=== PATIENT | male | born 1950 | race Native Hawaiian/Other Pacific Islander ===

== ENCOUNTER → 2018-08-09 10:19 | Inpatient (IN) | payer OTHER, MEDICAID ==
[2015-06-13 21:08] LABS: BASO # 0.1 K/uL (0.0-0.2); BASO % 0.5 % (0.0-2.0); EOS # 0.2 K/uL (0.0-0.7); EOS % 1.8 % (0.0-4.0); HEMOGLOBIN 11.6 g/dL (12.0-18.0); LYMPH # 5.5 K/uL (1.0-4.3); LYMPH % 51.1 % (20.0-40.0); MEAN CELL VOLUME 96.2 fL (80.0-94.0); MEAN CORPUSCULAR HEMOGLOBIN 30.1 pg (27.0-31.0); MEAN CORPUSCULAR HGB CONC 31.3 g/dL (33.0-37.0); MEAN PLATELET VOLUME 8.1 fL (7.2-11.7); MONO # 0.4 K/uL (0.0-0.8); MONO % 3.7 % (0.0-10.0); NEUT # 4.6 K/uL (1.8-7.0); NEUT % 42.9 % (50.0-75.0); NRBC % 0.1 % (0.0-0.0); RBC 3.86 Mil/uL (4.40-5.90); RED CELL DISTRIBUTION WIDTH 14.1 % (11.5-14.5); WHITE BLOOD COUNT 10.8 K/uL (4.8-10.8)
[2015-06-13 21:17] LABS: ALBUMIN 3.4 g/dL (3.5-5.0)
[2015-06-13 21:20] LABS: ALB/GLOB RATIO 1.2 (1.0-2.1); AST/SGOT 148 U/L (17-59); BLOOD UREA NITROGEN 14 mg/dL (9-20); GFR NON-AFRICAN AMERICAN 60
[2015-06-13 21:21] LABS: ALT/SGPT 149 U/L (21-72); CALCIUM 7.8 mg/dL (8.4-10.2); HDL CHOLESTEROL 36 mg/dL (30-70)
--- NOTE | 2015-06-13 21:21 | C.PDOC ---
History Of Present Illness 72 year old male presents to ED via EMS after being found unconscious in a driveway. Patient was shocked x3 and given Epi x2 and Amiodarone 150mg en route. Unable to obtain any hx due to patient's condition. Chief Complaint (Nursing): Cardiac Arrest History Per: EMS Reason For Code Blue: Full Arrest Circumstances: Brought To ED By EMS Arrest Witnessed By: No One CPR Initiated Prior To MD Arrival?: Yes Down-Time Before ACLS: Unknown Treatment Initiated Prior To MD Arrival: Yes: CPR, Intubation, ACLS Medication Initiation, IV Access Medications Given Prior To MD Arrival: Yes: Epinephrine (x2), Other (Amiodarone) - Initial Findings Mentation: Unresponsive Respirations: Normal Pulse: Strong Rhythm: Tachycardia Past Medical History Vital Signs: Last Vital Signs Temp 97.2 F L 06/13/15 20:56 Pulse 70 06/14/15 00:00 Resp 22 06/14/15 00:00 BP 128/73 06/14/15 00:00 Pulse Ox 100 06/14/15 00:00 Family History: States: Unknown Family Hx Review Of Systems Review Of Systems: ROS cannot be obtained secondary to pt's inabilty to answer questions. Physical Exam - Physical Exam Appears: Non-toxic Skin: Warm, Dry Head: Laceration (Stellate Wound to Occiput with Mild Active Bleed) Cardiovascular: Rhythm Regular (Tachycardic), No Edema, No Murmur Respiratory: Normal Breath Sounds, No Accessory Muscle Use, No Rhonchi, No Wheezing ED Course And Treatment - Laboratory Results Result Diagrams: 06/13/15 20:54 06/13/15 21:05 O2 Sat by Pulse Oximetry: 99 (on RA) Pulse Ox Interpretation: Normal Progress Note: Bloodwork, Labs, EKG, CxR, and Head CT ordered. - Physician Consult Information Physician Contacted: Ashu Hamlin Outcome Of Conversation: Code Heart Doctor on-call contacted with EKG sent. Laceration - Laceration Repair Occiput Wound Length (In cm): 4 Description Of Wound: Stellate Wound Cleansed With: Sterile Saline Wound Examination: Irrigated With Saline Wound Closure: Martin (x12) Suture Technique And Material Used: Interrupted Wound Complexity: Simple Disposition Doctor Will See Patient In The: Hospital Counseled Patient/Family Regarding: Studies Performed, Diagnosis - Disposition Disposition: HOSPITALIZED Disposition Time: 22:00 Condition: CRITICAL - POA Present On Arrival: None - Clinical Impression Clinical Impression: Cardiac arrest, STEMI (ST elevation myocardial infarction), Laceration of head
[2015-06-13 21:25] LABS: INR 1.1; PROTHROMBIN TIME 11.7 SECONDS (9.7-12.2)
[2015-06-13 21:30] LABS: B-TYPE NATRIURETIC PEPTIDE 938 pg/mL (0-900); CK-MB 0.93 ng/mL (0.0-3.38)
--- NOTE | 2015-06-13 21:30 | C.PDOC ---
Chief Complaint (Nursing): Cardiac Arrest Past Medical History Vital Signs: Last Vital Signs Temp 97.6 F 06/13/15 20:54 Pulse 209 H 06/13/15 20:54 Resp 18 06/13/15 20:54 BP 131/81 06/13/15 20:54 Pulse Ox 99 06/13/15 20:54 - Social History Hx Tobacco Use: No Hx Alcohol Use: No Hx Substance Use: No - Immunization History Hx Tetanus Toxoid Vaccination: No Hx Influenza Vaccination: No Hx Pneumococcal Vaccination: No ED Course And Treatment O2 Sat by Pulse Oximetry: 99
[2015-06-13 21:35] LABS: LDL CHOLESTEROL 128 mg/dL (0-129)
--- NOTE | 2015-06-13 22:37 | CP.PCM.HP ---
<Karis Antonio I - Last Filed: 06/14/15 06:35> History of Present Illness - History of Present Illness History of Present Illness: CC: Code Heart Patient is a 64 yo M with unknown pmhx who was found unresponsive in driveway by EMS after fall that was witnessed by family. In the field, CPR was given, patient was in asystole and was shocked 3 times, given 1 dose of Epinephrine and started on an Amiodarone drip. In the ED, the patient was found to be in V Fib and was shocked once. He then converted to sinus tachy and given 5000 U of heparin and Versed. He was intubated and an NGT was placed. Afterwards, he was given 600 mg of Plavis and 325 mg of ASA. He was found to have a large gash on the R side of his head so he was taken for a Head CT, which showed on acute intracranial hemorrhage and then to the fish farm laborer. From Patient's History obtained by System Analyst from family: PMHx: unknown type of "heart trouble" that was diagnosed in [place] 15 years ago. no rx or therapy given at that time. He has not seen a physician in 15 years PSHx: Denied Soc: denied EtOH and tobacco Allergy: NKDA meds: none Present on Admission - Present on Admission Any Indicators Present on Admission: No Review of Systems - Review of Systems Systems not reviewed;Unavailable: Intubated Past Patient History - Past Social History Smoking Status: Never Smoked - PSYCHIATRIC Hx Substance Use: No Meds Home Medications: Home Medication List Medication Instructions Recorded Confirmed Type No Known Home Med [No Known Home 06/13/15 06/13/15 History Med] Allergies/Adverse Reactions: Allergies Allergy/AdvReac Type Severity Reaction Status Date / Time No Known Allergies Allergy Unverified 06/13/15 20:57 Physical Exam - Constitutional Additional comments: Unresponsive to verbal or noxious stimuli - Head Exam Additional comments: 3 cm stapled contusion on the R side of the head, old blood seen - Respiratory Exam Respiratory Exam: Clear to PA & Lateral, NORMAL BREATHING PATTERN - Cardiovascular Exam Cardiovascular Exam: REGULAR RHYTHM, RRR, +S1, +S2 - GI/Abdominal Exam GI & Abdominal Exam: Normal Bowel Sounds, Soft - Extremities Exam Extremities exam: Positive for: normal inspection - Back Exam Back exam: NORMAL INSPECTION - Skin Skin Exam: Dry, Normal Color, Warm Results - Vital Signs Recent Vital Signs: Last Vital Signs Temp 97.2 F L 06/13/15 20:56 Pulse 122 H 06/13/15 21:04 Resp 18 06/13/15 21:04 BP 104/80 06/13/15 21:04 Pulse Ox 99 06/13/15 21:47 - Labs Result Diagrams: 06/13/15 20:54 06/13/15 21:05 Assessment/Plan (1) Cardiac arrest Current Visit: Yes Status: Acute Comment: Cardiac Catheterization showed occluded RCA and LAD Admit to ICU Continue Amiodarone drip Start ASA 325 mg po daily, Plavix 75 mg po daily, Crestor 2.5 mg po daily and Enalapril 2.5 mg po daily Cardiology Consult (Dr. Hamlin) Monitor (2) Anoxic encephalopathy Current Visit: Yes Status: Acute Comment: Most likely due to cardiac arrest Patient intubated Care as per Intensive Care Unit (3) Prophylactic measure Current Visit: Yes Status: Acute Comment: Pepcid 20 mg IVP q12 SCD's Plavix <Jalen Dye - Last Filed: 06/14/15 06:44> Results - Vital Signs Recent Vital Signs: Last Vital Signs Temp 98 F 06/14/15 00:13 Pulse 90 06/14/15 02:13 Resp 24 06/14/15 02:13 BP 114/76 06/14/15 02:13 Pulse Ox 96 06/14/15 02:13 - Labs Result Diagrams: 06/13/15 20:54 06/13/15 21:05 Labs: Laboratory Results - last 24 hr 06/14/15 05:20 pCO2 72.0 H* pO2 59.0 L HCO3 24.0 ABG pH 7.130 L* ABG Total CO2 26.2 ABG O2 Saturation 80.0 ABG Base Excess -6.3 A-a O2 Difference 564.0 Mechanical Rate 16.000 FiO2 100.000 Tidal Volume 450.000 Assessment/Plan - Date & Time Date: 06/14/15 (Agree with resident H&P and A/P. Code Heart called on patient. Taken to cath. RCA and LAD found to be occluded. May have anoxic brain injury. Admit to ICU for close monitoring.) Time: 06:43
[2015-06-13] MEDS: Eptifibatide 0.75 mg/ml 100 ML IV SCH (23:30)
--- NOTE | 2015-06-14 00:11 | CP.PCM.CON ---
History of Present Illness - History of Present Illness History of Present Illness: CTSP for admission to ICU after cardiac cath Indication: ventilator dependence, unresponsive Per ER Documentation: Patient is a 64 yo M with unknown pmhx who was found unresponsive in driveway his after a witnessed fall. She ran to him and cradled him in her arms while he was unresponsive. Unknown if he had a pulse or respirations at the time. After about 10 minutes, the pts then screamed out to her daughter in her house and it is the daughter that called EMS. EMS arrived after about 15 minutes (as relayed to me by the daughter). During that time there was still no response from the who was still cradled in the arms of his . In the field, CPR was administered by EMS. Per reports, the patient was in asystole and was shocked 3 times, given 1 dose of Epinephrine and started on an Amiodarone drip. In the ED the patient was still in V Fib and was shocked once. He then converted to sinus tachycardia and was given 5000 U of heparin as well as Versed. He was intubated and an NGT was placed. Afterwards, he was given 600 mg of Plavix and 325 mg of ASA. He was found to have a large gash on the R side of his head which was sutured and subsequently he was taken for a Head CT shich did not reveal any bleeding within the cranium. He was then taken to the wetlands conservation laborer by Dr. Hamlin who opened an occluded RCA and mid LAD. Pt transported to the ICU on a ventilator. NO improvement in mental status. Family at bedside and provided above information. speaks Arabic only and hx provided in toto by the daughter PMHx: unknown type of "heart trouble" that was diagnosed in [place] 15 years ago. no rx or therapy given at that time. He has not seen a physician in 15 years PSHx: Denied Soc: denied EtOH and tobacco Allergy: NKDA meds: none Discussed case/care/prognosis and high likelihood of anoxic injury and npo return of a functional neurologic state given a prolonged "down-time" of greater than 20 minutes before return of an organized cardiac rhythm. DUring course of care, pt developed seizures. Family aware. phosphenytoin administered Review of Systems - Review of Systems Systems not reviewed;Unavailable: Intubated (and unresponsive) Past Patient History - Tetanus Immunizations Tetanus Immunization: Unknown - Past Medical History & Family History Past Medical History?: Yes - Past Social History Smoking Status: Never Smoked Alcohol: None Drugs: Denies Home Situation {Lives}: With Family - CARDIAC Hx Cardiac Disorders: (unknown condition diagnosed in [place] 15 years ago) - PSYCHIATRIC Hx Substance Use: No Meds Home Medications: Home Medication List Medication Instructions Recorded Confirmed Type No Known Home Med [No Known Home 06/13/15 06/13/15 History Med] Allergies/Adverse Reactions: Allergies Allergy/AdvReac Type Severity Reaction Status Date / Time No Known Allergies Allergy Unverified 06/13/15 20:57 - Medications Medications: Current Medications Aspirin (Aspirin) 325 mg PO DAILY [facility] Clopidogrel Bisulfate (Plavix) 75 mg PO DAILY [facility] Enalapril Maleate (Vasotec) 2.5 mg PO DAILY [facility] Amiodarone HCl 900 mg/ (Dextrose) 518 mls @ 33 mls/hr IV Q15H JOO Stop: 06/14/15 03:30 Amiodarone HCl 150 mg/ (Dextrose) 103 mls @ 618 mls/hr IVPB ONCE JOO PRN Reason: Protocol Amiodarone HCl 900 mg/ (Dextrose) 518 mls @ 17 mls/hr IV Q29H JOO Stop: 06/15/15 08:29 Potassium Chloride (Potassium Chloride 20 Meq/100 Ml) 100 mls @ 50 mls/hr IVPB STAT STA Stop: 06/14/15 00:24 Last Admin: 06/13/15 22:25 Dose: 50 mls/hr Eptifibatide (Integrilin) 100 mls @ 9.435 mls/hr IV .[id number] JOO PRN Reason: 2 MCG/KG/MIN Stop: 06/14/15 11:30 Rosuvastatin Calcium (Crestor) 2.5 mg PO HS [facility] Physical Exam - Constitutional Appears: No Acute Distress Additional comments: unresponsive to verbal, painful and tactile stimuli - Head Exam Additional comments: + laceration on posterior scalp, sutured in ER - Eye Exam Pupil Exam: Fixed Additional comments: dilated - ENT Exam ENT Exam: Mucous Membranes Moist - Neck Exam Additional comments: trachea midline - Respiratory Exam Respiratory Exam: Clear to PA & Lateral - Cardiovascular Exam Cardiovascular Exam: REGULAR RHYTHM - GI/Abdominal Exam GI & Abdominal Exam: Hypoactive Bowel Sounds, Soft. absent: Distended, Firm, Guarding, Rebound, Rigid, Tenderness - Rectal Exam Rectal Exam: Deferred - Extremities Exam Extremities exam: Positive for: normal inspection - Neurological Exam Additional comments: unresponsive to verbal, painful and tactile stimuli - Expanded Neurological Exam Expanded Cranial nerves: Gag Reflex: Abnormal Left, Abnormal Right Coma Scale Eye Opening: None - Skin Skin Exam: Warm Results - Vital Signs Recent Vital Signs: Last Vital Signs Temp 97.2 F L 06/13/15 20:56 Pulse 122 H 06/13/15 21:04 Resp 18 06/13/15 21:04 BP 104/80 06/13/15 21:04 Pulse Ox 99 06/13/15 21:47 - Labs Result Diagrams: 06/13/15 20:54 06/13/15 21:05 Assessment/Plan (1) Cardiac arrest Current Visit: Yes Status: Acute (2) STEMI (ST elevation myocardial infarction) Current Visit: Yes Status: Acute (3) Anoxic encephalopathy Current Visit: Yes Status: Acute (4) CAD (coronary artery disease) Current Visit: Yes Status: Acute (5) Seizures Current Visit: Yes Status: Acute Comment: likely secondary to anoxic injury phosphenytoin administered (6) Prophylactic measure Current Visit: Yes Status: Acute - Assessment and Plan (Free Text) Plan: prognosis for neurological recovery is dismal given length of time pt was unresponsive and likely in v. fib arrest as hx obtained from EMS and the family. Duration from fall to organized rhythm appears to be greater than 25 minutes. maintain icu care maintain vent support neuro consult labs ordered see all orders
[2015-06-14] MEDS: Rosuvastatin Calcium 2.5 mg Tab PO SCH ×2 (01:28→23:05)
[2015-06-14 05:43] LABS: ARTERIAL BLOOD GAS TCO2 26.2 mmol/L
[2015-06-14 06:45] LABS: BASO % 0.1 % (0.0-2.0); HEMOGLOBIN 11.7 g/dL (12.0-18.0); LYMPH # 0.3 K/uL (1.0-4.3); LYMPH % 1.7 % (20.0-40.0); MEAN CELL VOLUME 94.9 fL (80.0-94.0); MEAN CORPUSCULAR HEMOGLOBIN 30.1 pg (27.0-31.0); MEAN CORPUSCULAR HGB CONC 31.7 g/dL (33.0-37.0); MEAN PLATELET VOLUME 8.6 fL (7.2-11.7); MONO # 1.2 K/uL (0.0-0.8); MONO % 6.9 % (0.0-10.0); NEUT # 15.5 K/uL (1.8-7.0); NEUT % 91.3 % (50.0-75.0); PLATELET COUNT 272 K/uL (130-400); RBC 3.88 Mil/uL (4.40-5.90); RED CELL DISTRIBUTION WIDTH 14.2 % (11.5-14.5)
[2015-06-14 07:00] LABS: ALBUMIN 3.6 g/dL (3.5-5.0)
[2015-06-14 07:03] LABS: ALB/GLOB RATIO 1.2 (1.0-2.1)
[2015-06-14 07:04] LABS: CALCIUM 7.7 mg/dL (8.4-10.2)
--- NOTE | 2015-06-14 07:16 | CT ---
PROCEDURE: CT HEAD WITHOUT CONTRAST. HISTORY: Code heart. Altered mental status. COMPARISON: None available. TECHNIQUE: Axial computed tomography images were obtained through the head/brain without intravenous contrast. FINDINGS: HEMORRHAGE: No intracranial hemorrhage. BRAIN: No mass effect or edema. No atrophy or chronic microvascular ischemic changes. Bilateral basal ganglia calcifications. VENTRICLES: Prominent consistent with mild volume loss. CALVARIUM: Unremarkable. PARANASAL SINUSES: Scattered mucosal thickening of the visualized paranasal sinuses. MASTOID AIR CELLS: Unremarkable as visualized. No inflammatory changes. OTHER FINDINGS: Endotracheal tube and nasogastric tube identified. IMPRESSION: No acute intracranial abnormality. If focal neurologic deficit persists, consider followup MRI for further evaluation. These findings were preliminarily reported at 10:09 p.m. on 06/13/[address] Khadar Sneed from [facility].
[2015-06-14] MEDS: Eptifibatide 0.75 mg/ml 100 ML IV SCH ×2 (07:44→10:00)
[2015-06-14] MEDS: Fosphenytoin 100 MG in Dextrose 5% In Water 50 ML IV SCH ×3 (08:04→23:04)
[2015-06-14 08:09] LABS: TROPONIN I 10.7 ng/mL (0.00-0.120)
[2015-06-14 08:26] LABS: ANISOCYTOSIS SLIGHT; BANDS 4 % (0-0); HYPOCHROMIC SLIGHT; LYMPHOCYTE 2 % (20-40); MONOCYTE 5 % (0-10); NEUTROPHIL 89 % (50-75); PLATELET ESTIMATE NORMAL (NORMAL); POIKILOCYTOSIS SLIGHT; TOTAL CELLS COUNTED 100
[2015-06-14 08:27] LABS: LARGE PLATELETS PRESENT; TARGET CELLS SLIGHT
--- NOTE | 2015-06-14 08:30 | CARDCATH ---
The patient is a 64-year-old male who was found collapsing in his driveway, CPR was initiated. The p atient required total five defibrillations. The patient was in ventricular fibrillation. The patien t was given amiodarone bolus and was started on infusion in Emergency Room. The patient was found to have sustained a posterior scalp laceration and underwent stapling in the cardiac laborer tin can just befo re the procedure. Before the procedure a CT scan of the head was done to rule out intracerebral hemo rrhage or contusion prior to the procedure and the preliminary report was negative. The patient was brought to the cardiac laborer tin can unresponsive, intubated, and in sinus rhythm. PROCEDURE: A 6-[place] sheath was placed in the right femoral artery. A left coronary angiography wa s performed with 6-[place] JL4 diagnostic catheter, which revealed a 50% ostial left main left, main b ifurcated into a medium sized LAD, and medium sized circumflex artery. The rest of the left coronary circulation was angiographically unremarkable. Retrograde filling of the distal RCA was noted from the left coronary circulation. Selective injection of right coronary artery revealed total occlusion of the ____ proximal to mid segment. Decision was made to proceed with intervention. The patient h ad received 5000 units of intravenous heparin and 600 mg of Plavix via nasogastric tube as well as 32 5 mg of aspirin in the Emergency Room. An additional 3000 units of heparin were given and the lesion was closed with 0.014 PT2 wire and the lesion was initially dilated with 1.5 and then 2.0 mm balloon s. After recanalization of the right coronary artery, a 3.0 x 28 mm bare metal stent was deployed at the lesion, was expanded at 14 atmospheric pressure. Subsequent right coronary angiography revealed a distal flap just distal to the stent with a filling defect that was stented with 3.0 x 12 mm bare metal stent; however, there was still persistence of the thrombus that was floating in the distal rig ht coronary artery. A fetch catheter was introduced and thrombectomy was performed successfully. Fu rther stenting to the proximal RCA was performed with a 3.0 x 15 mm bare metal stent. Final right co ronary angiography reveals resolution of the entire lesions with no residual thrombus or filling defe ct. The patient was also started on Integrilin bolus and infusion during the procedure. The patient required a total of 1 mg of intravenous heparin prior to the procedure for bradycardia. After compl etion of the procedure, ventriculogram was performed and revealed severely dilated, severely hypokine tic left ventricle. The patient will be transferred to the ICU on Integrilin therapy. Aspirin and P lavix will be resumed. A bedside echo will be obtained and in the meantime a Code Freeze will be dis cussed with the bakery products checker if the patient is a candidate in view of the recent scalp injury. Electr ophysiology evaluation will be also requested. Eventually, the patient may require coronary artery b ypass surgery for the left main disease; however, the patient is not a suitable candidate at this mitchel e. Ashu Hamlin MD cc: [id number] TT: 06/14/2015 04:48:16 an
--- NOTE | 2015-06-14 09:26 | RAD ---
PROCEDURE: CHEST RADIOGRAPH, 1 VIEW HISTORY: code heart [facility] 6 COMPARISON: None available. FINDINGS: LUNGS: Endotracheal tube extending into the mid thoracic trachea. NG tube extending into the stomach. Hyperinflation suggestive for emphysematous changes. Left apical granuloma. PLEURA: No pneumothorax or pleural fluid seen. CARDIOVASCULAR: Normal. OSSEOUS STRUCTURES: No significant abnormalities. VISUALIZED UPPER ABDOMEN: Normal. OTHER FINDINGS: None. IMPRESSION: No active disease.
--- NOTE | 2015-06-14 09:51 | RAD ---
PROCEDURE: CHEST RADIOGRAPH, 1 VIEW HISTORY: ett check COMPARISON: 06/13/2015 FINDINGS: LUNGS: Worsening airspace consolidation throughout the right lung. Lines and tubes stable position. Thin tubing projects over upper hemithoraces, possibly external. PLEURA: No pneumothorax or pleural fluid seen. CARDIOVASCULAR: Normal. OSSEOUS STRUCTURES: No significant abnormalities. VISUALIZED UPPER ABDOMEN: Normal. OTHER FINDINGS: None. IMPRESSION: Worsening airspace consolidation in the right lung.
--- NOTE | 2015-06-14 12:40 | PN ---
DATE: 06/14/2015 The patient has been deeply comatose. No reported ventricular tachycardia. The patient was hyperten sive briefly, responded to IV fluid therapy. PHYSICAL EXAMINATION: VITAL SIGNS: Blood pressure 98/66, heart rate 82, temperature 101 degrees Fahrenheit. HEENT: Dressings applied to the posterior scalp wound. CHEST: Clear. HEART: S1, S2 regular. EXTREMITIES: No edema and no groin hematoma. LABORATORIES: [facility]: Sodium 148, potassium 4.1, chloride 108, CO2 24, glucose 137, BUN 17, creatini ne 1.6. Troponin is 10.[address] head [address] scan report: No acute intracranial abnormalitie s. ASSESSMENT: Status post cardiac arrest and acute anterior wall myocardial infarction, status post pe rcutaneous coronary intervention to totally occluded proximal to mid right coronary artery with known 50% stenosis of the ostium of the left main. RECOMMENDATIONS: Continue current IV amiodarone infusion. Continue aspirin, Pepcid, Plavix and enal february. I will follow the bedside echocardiograph study. Ashu Hamlin MD cc: [id number] TT: 06/14/2015 12:40:28 en
--- NOTE | 2015-06-14 12:53 | CT ---
PROCEDURE: CT HEAD WITHOUT CONTRAST. HISTORY: unresponsiveness COMPARISON: 06/13/2015 TECHNIQUE: Axial computed tomography images were obtained through the head/brain without intravenous contrast. Radiation dose: Total exam DLP = 1204.23 mGy-cm. FINDINGS: HEMORRHAGE: No intracranial hemorrhage. BRAIN: No mass effect or edema. Minimal age appropriate atrophy. No evidence of acute infarct. Carver/white matter differentiation is preserved. VENTRICLES: Unremarkable. No hydrocephalus. CALVARIUM: Unremarkable. PARANASAL SINUSES: Chronic ethmoid, sphenoid and bilateral maxillary sinusitis. Frontal sinuses are hypoplastic. MASTOID AIR CELLS: Unremarkable as visualized. No inflammatory changes. OTHER FINDINGS: None. IMPRESSION: No evidence of intracranial mass, hemorrhage or acute infarct. Chronic pansinusitis.
[2015-06-14 13:31] LABS: CK-MB 20.6 ng/mL (0.0-3.38)
[2015-06-14] MEDS: Sodium Chloride 0.9% 1,000 ML IV SCH ×2 (15:18→23:06)
[2015-06-14] MEDS: Piperacill/Tazo 3.375gm in Dex 50 ML IVPB SCH (16:01)
--- NOTE | 2015-06-14 16:36 | CP.PCM.CON ---
History of Present Illness - History of Present Illness History of Present Illness: Palliative Care Consult Consulted by Yesenia Mayer DO Reason: planing goals of care I was asked to see this unfortunate, 64 yo man, for problems related to his sudden cardiac arrest and anoxic brain injury. Thank you for asking me to see this patient. I have discussed the case with nursing staff, reviewed medical records and most recent diagnostic studies, interviewed the family and examined the patient. Patient is unresponsive, GCS of 3, flaccid upper and lower extremities with bilateral foot droop. PPS 10%. Code status , FULL CODE.Respirations are supported by the ventilator via ED tube. Hydration is maintained trough the IVF. Patient was admitted to the ER on 06/13/2015 ,after sustaining cardiac arrest at home and found by his . Due to the fall, patient sustained Right acute intracranial hemorrhage. Ct head showed no acute infarct. According to nursing staff, last night , patient had series of short lasting seizure activities what for Celebyx IV was initiated. At cardiac garage laborer., Percutaneous coronary intervention was performed to totally occluded Right Coronary artery as stated in Doctor Boubacar's note. Cardiac perfusion is supported by Amiodorone IV, ASA, PLavix,Pepcid,Crestor, Enalapril. Patient has none recorded PMH and as per his daughter's statement he was always healthy and had not seen a doctor for 15 years. Patient is and has one daughter. They live in [place]. The daughter is only one Niuean speaking in the family. Review of Systems - Review of Systems Systems not reviewed;Unavailable: Intubated - EENT Eyes: Other Ears: UNREMARKABLE Nose/Mouth/Throat: UNREMARKABLE Additional comments: pupils dilated, non reactive to light - Cardiovascular Additional comments: S/P cardiac arrest - Respiratory Additional comments: Anoxic brain injury - Neurological Neurological: Other Additional comments: GCS 3 Past Patient History - Tetanus Immunizations Tetanus Immunization: Unknown - Past Medical History & Family History Past Medical History?: Yes - Past Social History Smoking Status: Never Smoked - CARDIAC Hx Cardiac Disorders: (unknown condition diagnosed in [place] 15 years ago) - MUSCULOSKELETAL/RHEUMATOLOGICAL Hx Falls: Yes - PSYCHIATRIC Hx Substance Use: No - ANESTHESIA Hx Anesthesia: No Hx Anesthesia Reactions: No Hx Malignant Hyperthermia: No Has any member of the family had a problem w/ anesthesia?: No Meds Home Medications: Home Medication List Medication Instructions Recorded Confirmed Type No Known Home Med [No Known Home 06/13/15 06/13/15 History Med] Allergies/Adverse Reactions: Allergies Allergy/AdvReac Type Severity Reaction Status Date / Time No Known Allergies Allergy Unverified 06/13/15 20:57 - Medications Medications: Current Medications Aspirin (Aspirin) 325 mg PO DAILY [facility] Last Admin: 06/14/15 10:53 Dose: 325 mg Clopidogrel Bisulfate (Plavix) 75 mg PO DAILY [facility] Last Admin: 06/14/15 10:52 Dose: 75 mg Enalapril Maleate (Vasotec) 2.5 mg PO DAILY [facility] Last Admin: 06/14/15 09:00 Dose: Not Given Famotidine (Pepcid) 20 mg IVP Q12 [facility] Last Admin: 06/14/15 10:52 Dose: 20 mg Amiodarone HCl 150 mg/ (Dextrose) 103 mls @ 618 mls/hr IVPB ONCE [facility] PRN Reason: Protocol Amiodarone HCl 900 mg/ (Dextrose) 518 mls @ 17 mls/hr IV Q29H [facility] Stop: 06/15/15 08:29 Last Admin: 06/14/15 06:00 Dose: 17 mls/hr Fosphenytoin Sodium 100 mg/ (Dextrose) 52 mls @ 100 mls/hr IV Q8H [facility] Last Admin: 06/14/15 14:13 Dose: 100 mls/hr Piperacillin Sod/Tazobactam Sod (Zosyn 3.375 Gm Iv Premix) 50 mls @ 100 mls/hr IVPB Q8H [facility] Sodium Chloride (Sodium Chloride 0.9%) 1,000 mls @ 125 mls/hr IV .Q8H [facility] Last Admin: 06/14/15 15:18 Dose: 125 mls/hr Vancomycin HCl 750 mg/ Sodium (Chloride) 250 mls @ 166.6 mls/hr IVPB Q24H [facility] Rosuvastatin Calcium (Crestor) 2.5 mg PO HS [facility] Last Admin: 06/14/15 01:28 Dose: 2.5 mg Physical Exam - Constitutional Appears: Other Additional comments: Comatous - Head Exam Additional comments: S/P fall, right head injury - Eye Exam Pupil Exam: Fixed - ENT Exam Additional comments: Intubated - Neck Exam Neck exam: Negative for: Full Rom, Lymphadenopathy, Meningismus, Normal Inspection, Tenderness, Thyromegaly Additional comments: Flaccid, no active ROM - Respiratory Exam Additional comments: Ventilator dependent - Cardiovascular Exam Cardiovascular Exam: REGULAR RHYTHM Additional comments: S/P cardiac arrest - GI/Abdominal Exam GI & Abdominal Exam: Unremarkable - Rectal Exam Rectal Exam: Deferred - Exam Exam: absent: Circumcision, NORMAL INSPECTION, Scrotal Swelling, Testicular Tenderness, Uretheral Discharge, Testicular Vertical Lie, Bladder Distension External exam: NORMAL EXTERNAL EXAM. absent: Ecchymosis, Erythema, Lacerations , Lesions, Swelling Speculum exam: absent: Cervical Discharge, Erythema, Foreign Body, Laceration, NORMAL SPECULUM EXAM, Tissue, Vaginal Bleeding, Vaginal Discharge Bimanual exam: absent: Adenexal Mass, Adnexal, Cervical Motion Tendernes, NORMAL BIMANUAL EXAM, Uterine Enlargement, Uterine Tenderness - Extremities Exam Extremities exam: Positive for: pedal pulses present Additional comments: Foot Droop - Back Exam Back exam: absent: CVA tenderness (L), CVA tenderness (R), FULL ROM, muscle spasm, NORMAL INSPECTION, paraspinal tenderness, rash noted, tenderness, vertebral tenderness - Neurological Exam Neurological exam: Motor Sensory Deficit Additional comments: Brain - Skin Skin Exam: Abrasion Results - Vital Signs Recent Vital Signs: Last Vital Signs Temp 98.5 F 06/14/15 12:00 Pulse 75 06/14/15 14:00 Resp 26 H 06/14/15 14:00 BP 107/70 06/14/15 14:00 Pulse Ox 100 06/14/15 14:00 - Labs Result Diagrams: 06/14/15 06:25 06/14/15 06:25 Labs: Laboratory Results - last 24 hr 06/14/15 06/14/15 06/14/15 05:20 06:25 12:38 WBC 17.0 H D RBC 3.88 L Hgb 11.7 L Hct 36.8 MCV 94.9 H MCH 30.1 MCHC 31.7 L RDW 14.2 Plt Count 272 MPV 8.6 Neut % (Auto) 91.3 H Lymph % (Auto) 1.7 L [place] % (Auto) 6.9 Eos % (Auto) 0.0 Baso % (Auto) 0.1 Neut # 15.5 H Lymph # 0.3 L [place] # 1.2 H Eos # 0.0 Baso # 0.0 Neutrophils % (Manual) 89 H Band Neutrophils % 4 H Lymphocytes % (Manual) 2 L Monocytes % (Manual) 5 Platelet Estimate Normal Large Platelets Present Hypochromasia (manual) Slight Poikilocytosis (manual Slight Anisocytosis (manual) Slight Target Cells Slight pCO2 72.0 H* pO2 59.0 L HCO3 24.0 ABG pH 7.130 L* ABG Total CO2 26.2 ABG O2 Saturation 80.0 ABG Base Excess -6.3 A-a O2 Difference 564.0 Mechanical Rate 16.000 FiO2 100.000 Tidal Volume 450.000 Sodium 148 Potassium 4.1 Chloride 108 H Carbon Dioxide 24 Anion Gap 20 BUN 17 Creatinine 1.6 H Est GFR ( Amer) 53 Est GFR (Non-Af Amer) 44 Random Glucose 137 H Lactic Acid 5.8 H* Calcium 7.7 L Phosphorus 6.4 H Magnesium 2.0 Total Bilirubin 0.6 AST 289 H D ALT 265 H D Alkaline Phosphatase 85 Total Creatine Kinase 3027 H CK-MB (Mass) 20.6 H Troponin I 10.7000 H* Troponin I, Quant 9.8200 H* Total Protein 6.7 Albumin 3.6 Globulin 3.1 Albumin/Globulin Ratio 1.2 Assessment/Plan - Assessment and Plan (Free Text) Assessment: Assessment This unfortunate 64 yo man, is vent dependent, due to anoxic brain injury secondary to sudden cardiac arrest. His ( who is only Latvian speaking) and the daughter are at the bed side. They are still in shock; daughter is crying, while the is with flat affect. The daughter recalls that the " heart doctor" told her that prognosis in case of her father was poor and that his heart may stop bitting. She made it clear that her and her mom would want extraordinary measures used to keep him alive. She understands that he may never wake up. If that was the case, she stated, they would bring him home and take care of him. I corrected her knowledge that her father may remain vent dependent, in what case he may need trach placement, which will limit possibility of him going home. I also mentioned that they may have to think of the financial aspect as well, given that they have no insurance. I offered suggestions about quality of life and asked if she knew what her father would want for himself if he could speak. The daughter said that they never had that kind of conversations. Recommendations * Continue Palliative care for family support. * Introduce POLST/DNR * Refer to Pastoral Care for Spiritual support to family during this difficult time * Refer to for possible jaime care application I have discussed this recommendations with the nursing staff, Roentgenology Teacher Hilary and with the daughter. We agreed that this is very tragic and complex situation and that family will need a lot of support and guidance. The refused to go home and I showed her and daughter the waiting room and went over the visiting hours policy. We agreed to meet again tomorrow in presence of Roentgenology Teacher Hilary again and discuss goals of care . Palliative care team will continue to support the family in setting up goals of care care . Thank you for letting me be a part in taking care of this patient.
--- NOTE | 2015-06-14 16:39 | CP.PCM.PN ---
Subjective - Subjective Subjective: Pt intubated and sedated Review of Systems - Review of Systems Systems not reviewed;Unavailable: Intubated Objective - Vital Signs/Intake and Output Vital Signs (last 24 hours): Vital Signs - 24 hr 06/13/15 06/13/15 06/13/15 23:24 23:43 23:58 Temperature 97.7 F Pulse Rate 74 70 73 Pulse Rate [* 74 Pedal & Posterior Tibial] Pulse Rate [ 74 Radial] Respiratory 18 20 18 Rate Blood Pressure 123/58 L 128/73 118/80 O2 Sat by Pulse 100 100 100 Oximetry 06/14/15 06/14/15 06/14/15 00:00 00:13 00:28 Temperature 98 F Pulse Rate 70 71 88 Pulse Rate [* Pedal & Posterior Tibial] Pulse Rate [ Radial] Respiratory 22 22 22 Rate Blood Pressure 128/73 128/73 105/55 L O2 Sat by Pulse 100 100 99 Oximetry 06/14/15 06/14/15 06/14/15 00:43 00:58 01:03 Temperature Pulse Rate 82 90 Pulse Rate [* Pedal & Posterior Tibial] Pulse Rate [ Radial] Respiratory 22 19 Rate Blood Pressure 106/53 L 97/71 L O2 Sat by Pulse 100 100 99 Oximetry 06/14/15 06/14/15 06/14/15 01:13 01:43 02:13 Temperature Pulse Rate 86 81 90 Pulse Rate [* Pedal & Posterior Tibial] Pulse Rate [ Radial] Respiratory 22 20 24 Rate Blood Pressure 102/65 115/60 114/76 O2 Sat by Pulse 98 98 96 Oximetry 06/14/15 06/14/15 06/14/15 03:13 04:13 05:13 Temperature 100.5 F H Pulse Rate 108 H 103 H 101 H Pulse Rate [* Pedal & Posterior Tibial] Pulse Rate [ Radial] Respiratory 16 16 16 Rate Blood Pressure 117/76 95/62 L 105/65 O2 Sat by Pulse 95 99 98 Oximetry 06/14/15 06/14/15 06/14/15 05:15 05:30 06:00 Temperature 101.2 F H Pulse Rate 103 H 112 H 106 H Pulse Rate [* Pedal & Posterior Tibial] Pulse Rate [ Radial] Respiratory 16 16 16 Rate Blood Pressure 79/36 L 85/47 L 121/65 O2 Sat by Pulse 90 L 93 L 100 Oximetry 06/14/15 06/14/1506/14/15 08:00 09:00 10:00 Temperature 101.4 F H 101 F H Pulse Rate 96 H 93 H 87 Pulse Rate [* Pedal & Posterior Tibial] Pulse Rate [ Radial] Respiratory 24 25 H 25 H Rate Blood Pressure 94/62 L 89/64 L 100/65 O2 Sat by Pulse 100 100 100 Oximetry 06/14/15 06/14/15 06/14/15 11:00 12:00 13:00 Temperature 98.5 F Pulse Rate 82 86 72 Pulse Rate [* Pedal & Posterior Tibial] Pulse Rate [ Radial] Respiratory 25 H 25 H 25 H Rate Blood Pressure 98/66 L 100/65 103/74 O2 Sat by Pulse 100 100 100 Oximetry 06/14/15 14:00 Temperature Pulse Rate 75 Pulse Rate [* Pedal & Posterior Tibial] Pulse Rate [ Radial] Respiratory 26 H Rate Blood Pressure 107/70 O2 Sat by Pulse 100 Oximetry Intake and Output (last 12 hours): Intake & Output 06/13/15 06/14/15 06/14/15 18:59 06:59 18:59 Intake Total 290.2 267.8 Output Total 2155 1320 Balance -1864.8 -1052.2 Intake: Intake, IV Amount 290.2 187.8 Right Wrist 75.2 18.8 Left Forearm 50 Left Antecubital 215 119 Tube Feeding 80 Output: Urine 2155 1320 Urethral (Yoo) 2155 1320 Stool 0 Other: Voiding Method Indwelling Catheter - Medications Medications: Current Medications Amiodarone HCl (Cordarone) 200 mg PO DAILY [facility] Aspirin (Aspirin) 325 mg PO DAILY [facility] Last Admin: 06/14/15 10:53 Dose: 325 mg Clopidogrel Bisulfate (Plavix) 75 mg PO DAILY [facility] Last Admin: 06/14/15 10:52 Dose: 75 mg Enalapril Maleate (Vasotec) 2.5 mg PO DAILY [facility] Last Admin: 06/14/15 09:00 Dose: Not Given Famotidine (Pepcid) 20 mg IVP Q12 [facility] Last Admin: 06/14/15 10:52 Dose: 20 mg Amiodarone HCl 150 mg/ (Dextrose) 103 mls @ 618 mls/hr IVPB ONCE [facility] PRN Reason: Protocol Fosphenytoin Sodium 100 mg/ (Dextrose) 52 mls @ 100 mls/hr IV Q8H [facility] Last Admin: 06/14/15 14:13 Dose: 100 mls/hr Piperacillin Sod/Tazobactam Sod (Zosyn 3.375 Gm Iv Premix) 50 mls @ 100 mls/hr IVPB Q8H [facility] Last Admin: 06/14/15 16:01 Dose: 100 mls/hr Sodium Chloride (Sodium Chloride 0.9%) 1,000 mls @ 125 mls/hr IV .Q8H [facility] Last Admin: 06/14/15 15:18 Dose: 125 mls/hr Vancomycin HCl 750 mg/ Sodium (Chloride) 250 mls @ 166.6 mls/hr IVPB Q24H [facility] Last Admin: 06/14/15 16:31 Dose: 166.6 mls/hr Rosuvastatin Calcium (Crestor) 2.5 mg PO HS [facility] Last Admin: 06/14/15 01:28 Dose: 2.5 mg - Labs Labs (last 24 hours): Laboratory Results - last 24 hr 06/14/15 06/14/15 06/14/15 05:20 06:25 12:38 WBC 17.0 H D RBC 3.88 L Hgb 11.7 L Hct 36.8 MCV 94.9 H MCH 30.1 MCHC 31.7 L RDW 14.2 Plt Count 272 MPV 8.6 Neut % (Auto) 91.3 H Lymph % (Auto) 1.7 L [place] % (Auto) 6.9 Eos % (Auto) 0.0 Baso % (Auto) 0.1 Neut # 15.5 H Lymph # 0.3 L [place] # 1.2 H Eos # 0.0 Baso # 0.0 Neutrophils % (Manual) 89 H Band Neutrophils % 4 H Lymphocytes % (Manual) 2 L Monocytes % (Manual) 5 Platelet Estimate Normal Large Platelets Present Hypochromasia (manual) Slight Poikilocytosis (manual Slight Anisocytosis (manual) Slight Target Cells Slight pCO2 72.0 H* pO2 59.0 L HCO3 24.0 ABG pH 7.130 L* ABG Total CO2 26.2 ABG O2 Saturation 80.0 ABG Base Excess -6.3 A-a O2 Difference 564.0 Mechanical Rate 16.000 FiO2 100.000 Tidal Volume 450.000 Sodium 148 Potassium 4.1 Chloride 108 H Carbon Dioxide 24 Anion Gap 20 BUN 17 Creatinine 1.6 H Est GFR ( Amer) 53 Est GFR (Non-Af Amer) 44 Random Glucose 137 H Lactic Acid 5.8 H* Calcium 7.7 L Phosphorus 6.4 H Magnesium 2.0 Total Bilirubin 0.6 AST 289 H D ALT 265 H D Alkaline Phosphatase 85 Total Creatine Kinase 3027 H CK-MB (Mass) 20.6 H Troponin I 10.7000 H* Troponin I, Quant 9.8200 H* Total Protein 6.7 Albumin 3.6 Globulin 3.1 Albumin/Globulin Ratio 1.2 - Respiratory Exam Respiratory Exam: Decreased Breath Sounds, Rhonchi - Cardiovascular Exam Cardiovascular Exam: REGULAR RHYTHM, +S1, +S2, Systolic Murmur - GI/Abdominal Exam GI & Abdominal Exam: Normal Bowel Sounds Assessment/Plan - Assessment and Plan (Free Text) Assessment: Pt with 100 RCA vifib arrest RCA stent intubated sedated posturing in guarded condition would change to PO amio 200 qd Source of vifib probably ischemic in etiology secondary to 100 percent RCA
--- NOTE | 2015-06-14 17:11 | CP.PCM.PN ---
Subjective - Subjective Subjective: not awake - vented - not sedated - does not awaken to verbal or physical stimuli Review of Systems - Review of Systems Systems not reviewed;Unavailable: Acuity of Condition Objective - Vital Signs/Intake and Output Vital Signs (last 24 hours): Vital Signs - 24 hr 06/13/15 06/13/15 06/13/15 23:24 23:43 23:58 Temperature 97.7 F Pulse Rate 74 70 73 Pulse Rate [* 74 Pedal & Posterior Tibial] Pulse Rate [ 74 Radial] Respiratory 18 20 18 Rate Blood Pressure 123/58 L 128/73 118/80 O2 Sat by Pulse 100 100 100 Oximetry 06/14/15 06/14/15 06/14/15 00:00 00:13 00:28 Temperature 98 F Pulse Rate 70 71 88 Pulse Rate [* Pedal & Posterior Tibial] Pulse Rate [ Radial] Respiratory 22 22 22 Rate Blood Pressure 128/73 128/73 105/55 L O2 Sat by Pulse 100 100 99 Oximetry 06/14/15 06/14/15 06/14/15 00:43 00:58 01:03 Temperature Pulse Rate 82 90 Pulse Rate [* Pedal & Posterior Tibial] Pulse Rate [ Radial] Respiratory 22 19 Rate Blood Pressure 106/53 L 97/71 L O2 Sat by Pulse 100 100 99 Oximetry 06/14/15 06/14/15 06/14/15 01:13 01:43 02:13 Temperature Pulse Rate 86 81 90 Pulse Rate [* Pedal & Posterior Tibial] Pulse Rate [ Radial] Respiratory 22 20 24 Rate Blood Pressure 102/65 115/60 114/76 O2 Sat by Pulse 98 98 96 Oximetry 06/14/15 06/14/15 06/14/15 03:13 04:13 05:13 Temperature 100.5 F H Pulse Rate 108 H 103 H 101 H Pulse Rate [* Pedal & Posterior Tibial] Pulse Rate [ Radial] Respiratory 16 16 16 Rate Blood Pressure 117/76 95/62 L 105/65 O2 Sat by Pulse 95 99 98 Oximetry 06/14/15 06/14/15 06/14/15 05:15 05:30 06:00 Temperature 101.2 F H Pulse Rate 103 H 112 H 106 H Pulse Rate [* Pedal & Posterior Tibial] Pulse Rate [ Radial] Respiratory 16 16 16 Rate Blood Pressure 79/36 L 85/47 L 121/65 O2 Sat by Pulse 90 L 93 L 100 Oximetry 07/23/15 07/23/15 07/23/15 08:00 09:00 10:00 Temperature 101.4 F H 101 F H Pulse Rate 96 H 93 H 87 Pulse Rate [* Pedal & Posterior Tibial] Pulse Rate [ Radial] Respiratory 24 25 H 25 H Rate Blood Pressure 94/62 L 89/64 L 100/65 O2 Sat by Pulse 100 100 100 Oximetry 06/14/15 06/14/15 06/14/15 11:00 12:00 13:00 Temperature 98.5 F Pulse Rate 82 86 72 Pulse Rate [* Pedal & Posterior Tibial] Pulse Rate [ Radial] Respiratory 25 H 25 H 25 H Rate Blood Pressure 98/66 L 100/65 103/74 O2 Sat by Pulse 100 100 100 Oximetry 06/14/15 06/14/15 06/14/15 14:00 15:00 16:00 Temperature 98.9 F Pulse Rate 75 78 74 Pulse Rate [* Pedal & Posterior Tibial] Pulse Rate [ Radial] Respiratory 26 H 25 H 25 H Rate Blood Pressure 107/70 111/73 108/71 O2 Sat by Pulse 100 100 100 Oximetry Intake and Output (last 12 hours): Intake & Output 06/13/15 06/14/15 06/14/15 18:59 06:59 18:59 Intake Total 290.2 351.8 Output Total 215 1770 Balance -1864.8 -1418.2 Intake: Intake, IV Amount 290.2 271.8 Right Wrist 75.2 18.8 Left Forearm 100 Left Antecubital 215 153 Oral 0 Tube Feeding 80 Output: Urine 2154 177 Urethral (Yoo) 2154 1770 Stool 0 Other: Voiding Method Indwelling Catheter - Medications Medications: Current Medications Amiodarone HCl (Cordarone) 200 mg PO DAILY [facility] Aspirin (Aspirin) 325 mg PO DAILY [facility] Last Admin: 06/14/15 10:53 Dose: 325 mg Clopidogrel Bisulfate (Plavix) 75 mg PO DAILY [facility] Last Admin: 06/14/15 10:52 Dose: 75 mg Enalapril Maleate (Vasotec) 2.5 mg PO DAILY [facility] Last Admin: 06/14/15 09:00 Dose: Not Given Famotidine (Pepcid) 20 mg IVP Q12 [facility] Last Admin: 06/14/15 10:52 Dose: 20 mg Amiodarone HCl 150 mg/ (Dextrose) 103 mls @ 618 mls/hr IVPB ONCE [facility] PRN Reason: Protocol Fosphenytoin Sodium 100 mg/ (Dextrose) 52 mls @ 100 mls/hr IV Q8H [facility] Last Admin: 06/14/15 14:13 Dose: 100 mls/hr Piperacillin Sod/Tazobactam Sod (Zosyn 3.375 Gm Iv Premix) 50 mls @ 100 mls/hr IVPB Q8H [facility] Last Admin: 06/14/15 16:01 Dose: 100 mls/hr Sodium Chloride (Sodium Chloride 0.9%) 1,000 mls @ 125 mls/hr IV .Q8H [facility] Last Admin: 06/14/15 15:18 Dose: 125 mls/hr Vancomycin HCl 750 mg/ Sodium (Chloride) 250 mls @ 166.6 mls/hr IVPB Q24H [facility] Last Admin: 06/14/15 16:31 Dose: 166.6 mls/hr Rosuvastatin Calcium (Crestor) 2.5 mg PO HS [facility] Last Admin: 06/14/15 01:28 Dose: 2.5 mg - Labs Labs (last 24 hours): Laboratory Results - last 24 hr 06/14/15 06/14/15 06/14/15 05:20 06:25 12:38 WBC 17.0 H D RBC 3.88 L Hgb 11.7 L Hct 36.8 MCV 94.9 H MCH 30.1 MCHC 31.7 L RDW 14.2 Plt Count 272 MPV 8.6 Neut % (Auto) 91.3 H Lymph % (Auto) 1.7 L [place] % (Auto) 6.9 Eos % (Auto) 0.0 Baso % (Auto) 0.1 Neut # 15.5 H Lymph # 0.3 L [place] # 1.2 H Eos # 0.0 Baso # 0.0 Neutrophils % (Manual) 89 H Band Neutrophils % 4 H Lymphocytes % (Manual) 2 L Monocytes % (Manual) 5 Platelet Estimate Normal Large Platelets Present Hypochromasia (manual) Slight Poikilocytosis (manual Slight Anisocytosis (manual) Slight Target Cells Slight pCO2 72.0 H* pO2 59.0 L HCO3 24.0 ABG pH 7.130 L* ABG Total CO2 26.2 ABG O2 Saturation 80.0 ABG Base Excess -6.3 A-a O2 Difference 564.0 Mechanical Rate 16.000 FiO2 100.000 Tidal Volume 450.000 Sodium 148 Potassium 4.1 Chloride 108 H Carbon Dioxide 24 Anion Gap 20 BUN 17 Creatinine 1.6 H Est GFR ( Amer) 53 Est GFR (Non-Af Amer) 44 Random Glucose 137 H Lactic Acid 5.8 H* Calcium 7.7 L Phosphorus 6.4 H Magnesium 2.0 Total Bilirubin 0.6 AST 289 H D ALT 265 H D Alkaline Phosphatase 85 Total Creatine Kinase 3027 H CK-MB (Mass) 20.6 H Troponin I 10.7000 H* Troponin I, Quant 9.8200 H* Total Protein 6.7 Albumin 3.6 Globulin 3.1 Albumin/Globulin Ratio 1.2 - Head Exam Additional comments: had injury - er sutures placed - Eye Exam Pupil Exam: Fixed Additional comments: right 5mm left 7 mm - ENT Exam Additional comments: et tube - Respiratory Exam Additional comments: coarse bs bilaterally -ventilator - Cardiovascular Exam Cardiovascular Exam: +S1, +S2 Additional comments: no murmur - GI/Abdominal Exam GI & Abdominal Exam: Normal Bowel Sounds - Extremities Exam Extremities exam: normal inspection - Neurological Exam Neurological exam: absent: Alert, Oriented x3 - Psychiatric Exam Additional comments: unable to assess - Skin Skin Exam: Normal Color Assessment/Plan - Assessment and Plan (Free Text) Assessment: 1. Cardiac arrest - st elevation mi - s/p cardiac arrest, s/p stents 2. anoxic brain injury 3. seizure 4 Acute renal failure 5. V - FIB - arrest 6. CAD Overall plan: Had discussion with family daughter who speaks russian and of patient at bedside - they would like to continue full code cont current management per icu cont management per neuro cont management per cards Poor prognosis due to prolonged anoxic injury in field from cardiac arrest.
--- NOTE | 2015-06-15 00:30 | CARD ---
APPROVED REPORT EXAM: Two-dimensional and M-mode echocardiogram with Doppler and color Doppler. Other Information Quality : GoodRhythm : NSR INDICATION Abnormal EKG/Arrhythmia Non STEMI CARDIAC ARREST M-Mode DIMENSIONS RVDd0.67 (2.1-3.2cm)Left Atrium (MM)2.34 (2.5-4.0cm) IVSd0.97 (0.7-1.1cm)Aortic Root3.64 (2.2-3.7cm) LVDd6.32 (4.0-5.6cm)Aortic Cusp Exc.1.85 (1.5-2.0cm) PWd0.85 (0.7-1.1cm)FS (%) 16 % LVDs5.31 (2.0-3.8cm)LVEF (%)33 (>50%) Mitral Valve MV E Poioerfa45.6cm/sMV A Yjodcpgt65.4cm/sE/A ratio0.7 TDI E/Lateral E'0.0E/Medial E'0.0 Tricuspid Valve TR Peak [id number]/sTR Peak Gr.[id number] LEFT VENTRICLE The Left Ventricle is moderately dilated. There is normal left ventricular wall thickness. Left ventricle systolic function is moderately to severely impaired with Ejection Fraction of 30-35% There is moderate to severe global hypokinesis. Akinetic anteroseptal wall, The left ventricular diastolic function is abnormal Grade I-abnormal relaxation pattern. No left ventricle thrombus noted on this study. RIGHT VENTRICLE The right ventricle is normal size. The right ventricular systolic function is normal. ATRIA The left atrium size is normal. The right atrium size is normal. AORTIC VALVE The aortic valve is mildly to moderately sclerotic. The aortic valve is trileaflet. No aortic regurgitation is present. There is no evidence of aortic valve stenosis. MITRAL VALVE The mitral valve is normal in structure. There is no evidence of mitral valve prolapse. There is no mitral valve stenosis. Mitral regurgitation is mild. TRICUSPID VALVE The tricuspid valve is normal in structure. There is trace to mild tricuspid regurgitation. Right ventricular systolic pressure is estimated at 30-40 mmHg. There is no pulmonary hypertension. There is no tricuspid valve prolapse or vegetation. There is no tricuspid valve stenosis. PULMONIC VALVE The pulmonic valve is not well visualized. There is trace to mild pulmonic valvular regurgitation. GREAT VESSELS The aortic root is normal in size. The IVC is normal in size and collapses >50% with inspiration. PERICARDIAL EFFUSION There is no pericardial effusion. There is no pleural effusion. <Conclusion> The Left Ventricle is moderately dilated. Left ventricle systolic function is moderately to severely impaired with Ejection Fraction of 30-35% There is moderate to severe global hypokinesis. Akinetic anteroseptal wall. Regional wall motion abnormality consistent with coronary artery disease The left ventricular diastolic function is abnormal Grade I-abnormal relaxation pattern. The left atrium size is normal. The right atrium size is normal. Mitral regurgitation is mild. There is trace to mild tricuspid regurgitation. There is trace to mild pulmonic valvular regurgitation.
[2015-06-15] MEDS: Sodium Chloride 0.9% 1,000 ML IV SCH ×4 (02:08→22:00)
--- NOTE | 2015-06-15 03:49 | CON ---
DATE: 06/14/2015 ATTENDING PHYSICIAN: Ashu Hamlin MD ROOM NUMBER: [id number]. REASON FOR CONSULTATION: Unresponsiveness. CHIEF COMPLAINT: The patient was brought in by EMS found him unresponsiveness. The patient was intubated at the scene. The patient had a head trauma from the fall. From a neurological point of view, I was called in to evaluate him for further management. HISTORY OF PRESENT ILLNESS: The patient is a 64-year-old [place]ian male. Family witnessed fall in front of the house, ever since unresponsiveness. 911 was called. He was shocked twice at the scene and he got tubed at the scene and the patient was brought into [facility]. The patient was found to have angioplasty did for coronary artery disease, status post stenting placed. No clear evidence of seizures as per the documentation. PAST MEDICAL HISTORY: Unremarkable. ALLERGIES: No known allergies. REVIEW OF SYSTEMS: As per H and P. PHYSICAL EXAMINATION: VITAL SIGNS: Blood pressure 108/71, pulse rate 74, respiratory rate on vent. NEUROLOGIC EXAMINATION: The patient is not on sedation. The patient is deeply comatose. Eyes are closed. On passive opening the eyelids, pupils are asymmetrically dilated. Left side was 6 mm and right side was 5 mm, but briskly reacting to light. No corneal reflex, no oculocephalic, no gag. Quadriplegic. Areflexic. Plantars are mute. SENSORY EXAMINATION: No response to pain. COORDINATION AND GAIT: Deferred at this time. CONCLUSION: Upon reviewing his history and neurological examination, the patient has been presenting with a global cerebral dysfunction with patchy brainstem dysfunction. This is my first evaluation. The patient shows global anoxic insult to the cortex, probably the brainstem ischemic changes. CT of the head reviewed by me. The two CAT scans, which were done yesterday and today, no acute changes are noted except bilateral basal ganglia calcification. Sinus tachycardia as per the EKG with PVCs. BLOOD WORKUP: WBC 17.0, hemoglobin 11.7, hematocrit 36.8, platelets 272. Sodium is 148, potassium 4.1, corrected from 2.6; chloride 108, bicarbonate 24, BUN 17, creatinine 1.6, random glucose 137. Lactic acid is 5.8, calcium 7.7, phosphorus 6.4, AST 289, ALT 265. Troponin is 10.70. RECOMMENDATIONS: 1. Repeat CT of the head for followup of stroke. 2. EEG to be reviewed by me. Carotid Doppler shows mild disease. The patient seems to have irreversible insult to his central nervous system. The overall prognosis is poor. The patient will be followed closely with you. Dennis Garcia MD cc: [id number] TT: 06/15/2015 00:48:51 an MTDD
--- NOTE | 2015-06-15 05:34 | EEG ---
DATE: 06/14/2015 This is a 16-channel electroencephalogram, which was performed at the bedside in the intensive care unit. The resting electroencephalogram shows diffuse 2-3 Hz delta activities noted from the beginning. This activity did not change in frequency or any amplitude as well as a frequency noted. Photogenic response noted on photic stimulation. However, during the study neither electroencephalographic paroxysmal activities nor focal slowing noted. IMPRESSION: This is a globally abnormal electroencephalogram because of persistent slowing throughout the record suggestive of bilateral cerebral dysfunction. Considering the history, this is probably secondary to global cerebral dysfunction secondary to the anoxic insult. During the study neither electroencephalographic paroxysmal activities or focal slowing noted. The patient does not meet the criteria for the bilateral cerebral silence. Dennis Garcia MD cc: [id number] TT: 06/15/2015 01:51:06 [facility] # [id number] an MTDKaylynn
--- NOTE | 2015-06-15 06:12 | CARD ---
APPROVED REPORT EKG Measurement Heart [id number] <Conclusion> Sinus tachycardia with occasional premature ventricular complexes Acute Inferior wall infarct Abnormal ECG
[2015-06-15 06:15] LABS: ARTERIAL BLOOD GAS TCO2 22.1 mmol/L
[2015-06-15 06:21] LABS: ARTERIAL BLOOD GAS HCO3 21.1 mmol/L (22.0-26.0)
[2015-06-15] MEDS: Fosphenytoin 100 MG in Dextrose 5% In Water 50 ML IV SCH ×3 (07:02→22:01)
[2015-06-15 07:05] LABS: BASO % 0.1 % (0.0-2.0); LYMPH # 0.9 K/uL (1.0-4.3); LYMPH % 6.3 % (20.0-40.0); MEAN CORPUSCULAR HEMOGLOBIN 30.3 pg (27.0-31.0); MEAN CORPUSCULAR HGB CONC 33.1 g/dL (33.0-37.0); MEAN PLATELET VOLUME 8.6 fL (7.2-11.7); MONO % 6.6 % (0.0-10.0); NEUT # 12.7 K/uL (1.8-7.0); RBC 3.95 Mil/uL (4.40-5.90); RED CELL DISTRIBUTION WIDTH 14.2 % (11.5-14.5); WHITE BLOOD COUNT 14.6 K/uL (4.8-10.8)
[2015-06-15 07:20] LABS: MEAN CELL VOLUME 91.6 fL (80.0-94.0); PLATELET COUNT 149 K/uL (130-400)
[2015-06-15] MEDS: Piperacill/Tazo 3.375gm in Dex 50 ML IVPB SCH ×4 (07:35→23:33)
[2015-06-15 07:37] LABS: ALBUMIN 3.3 g/dL (3.5-5.0)
[2015-06-15 07:40] LABS: ALT/SGPT 387 U/L (21-72); AST/SGOT 410 U/L (17-59); BLOOD UREA NITROGEN 18 mg/dL (9-20); GFR NON-AFRICAN AMERICAN > 60
[2015-06-15 07:41] LABS: CALCIUM 7.4 mg/dL (8.4-10.2)
--- NOTE | 2015-06-15 07:52 | PN ---
DATE: 06/15/2015 SUBJECTIVE: The patient is hemodynamically stable; however, he is deeply comatose. No reported vent ricular arrhythmia. PHYSICAL EXAMINATION: VITAL SIGNS: Blood pressure 137/85, heart rate 85, temperature 99.4, and respiration 23. HEENT: The patient has dressing for his posterior scalp laceration. NECK: No JVD. CHEST: Clear. HEART: S1 and S2 regular. EXTREMITIES: No edema. LABORATORIES: Today's labs are still pending. The most recent troponin is 9.82. Bedside echocardiograph study revealed moderate dilated left ventricle with ejection fraction estimat ed between 30% and 35% with segmental hypokinesis consistent with underlying coronary artery disease. ASSESSMENT: 1. Status post cardiac arrest, ventricular fibrillation with subsequent resuscitation, and successfu l PCI to the right coronary artery with known significant ostial left main disease. 2. Rule out anoxic encephalopathy. RECOMMENDATIONS: Continue current aspirin 325 mg once a day, oral amiodarone at 200 mg daily, Cresto r 2.5 mg once a day, IV vancomycin, as well as IV Zosyn. Continue Vasotec 2.5 mg once a day. Start atenolol at 12.5 mg once a day. Ashu Hamlin MD cc: [id number] TT: 06/15/2015 06:55:54 an
[2015-06-15] MEDS: Potassium Chloride 20 mEq/15 ml LIQ UD NG SCH ×2 (08:31→09:24)
[2015-06-15] MEDS: Potassium Chloride 20 mEq 100 ML IVPB SCH ×2 (08:32→11:05)
[2015-06-15 08:46] LABS: BANDS 12 % (0-0); LYMPHOCYTE 7 % (20-40); MONOCYTE 2 % (0-10); NEUTROPHIL 79 % (50-75); PLATELET ESTIMATE NORMAL (NORMAL); TOTAL CELLS COUNTED 100
[2015-06-15 08:47] LABS: POIKILOCYTOSIS SLIGHT
--- NOTE | 2015-06-15 10:45 | RAD ---
PROCEDURE: CHEST RADIOGRAPH, 1 VIEW HISTORY: ett check COMPARISON: 06/14/2015 FINDINGS: LUNGS: Clear. PLEURA: No pneumothorax or pleural fluid seen. CARDIOVASCULAR: Normal heart size. ET tube tip 6.7 cm above tracheal chery. Nasogastric tube extends to left upper quadrant of abdomen. OSSEOUS STRUCTURES: No significant abnormalities. VISUALIZED UPPER ABDOMEN: Normal. OTHER FINDINGS: None. IMPRESSION: No infiltrate
--- NOTE | 2015-06-15 15:35 | CP.PCM.PN ---
Subjective - Subjective Subjective: Palliative Care progress note. Assessment The patient remains unresponsive to stimuli, intubated on vent support. A careful physical examination is performed with particular attention to factors that may cause skin breakdown, due to prolonged bed mobility. Good vascularization of lower extremities noted, palpable PP and B/L foot droop. The and the daughter are present and they appear to have poor understanding of patient's overall health status. They are still hoping that he may return home. Patient is unfortunate with anoxic brain injury, secondary to cardiac arrest and he may need remote computer terminal operator vent and artificial feeding support. I discussed the case with [facility] and the floor nurse. I presented the family with most current findings and assisted him with the decision making. I clarified clinical context of anoxic brain injury, which may require care home placement of PEG and trach. I elicited the feelings about quality of life concerns and goals of life sustaining treatment. In a framework that respects their stated feelings and beliefs I explained that reasonable goals of medicine for treatment of condition this patient has, are not likely to be achieved. Daughter's limited Indonesian understanding seems to be obstacle in processing the information. I gently introduced the POLST as a form of Advanced Directive and told them that other people consider DNR as an option in the situations when the prognosis is poor. The and the daughter are not ready to make any decision at this time. The daughter would like to speak to the Doctor and find out what percentage of her father's brain is damaged and if he will ever be able to breath on his own. Recommendations * PT to assess for Splints to B/L feet , to prevent further foot droop and deformity. * Introduce idea of PEG as a different way of nutrition if patient medicably stable for procedure * Introduce the need for Trach , as a remote computer terminal operator solution to support breathing, when patient medicaly stable for procedure Palliative team will continue to fallow up with the family for support in making decisions for plan of care/ Objective - Vital Signs/Intake and Output Vital Signs (last 24 hours): Vital Signs - 24 hr 06/14/15 06/14/15 06/14/15 16:00 17:00 18:00 Temperature 98.9 F Pulse Rate 74 73 72 Respiratory 25 H 26 H 25 H Rate Blood Pressure 108/71 109/74 121/74 O2 Sat by Pulse 100 100 100 Oximetry 06/14/15 06/14/15 06/14/15 19:00 20:00 21:00 Temperature 98.8 F Pulse Rate 77 74 76 Respiratory 25 H 24 25 H Rate Blood Pressure 131/77 130/74 141/70 O2 Sat by Pulse 100 100 100 Oximetry 06/14/15 06/14/15 06/15/15 22:00 23:00 00:00 Temperature 98.2 F Pulse Rate 76 81 79 Respiratory 23 24 22 Rate Blood Pressure 136/78 135/79 133/78 O2 Sat by Pulse 100 100 100 Oximetry 06/15/15 06/15/15 06/15/15 01:00 02:00 03:00 Temperature Pulse Rate 75 82 80 Respiratory 24 22 22 Rate Blood Pressure 135/80 131/80 134/80 O2 Sat by Pulse 100 100 100 Oximetry 06/15/15 06/15/15 06/15/15 04:00 05:00 06:00 Temperature 99.4 F Pulse Rate 85 85 81 Respiratory 24 23 22 Rate Blood Pressure 135/82 137/85 141/87 O2 Sat by Pulse 100 100 100 Oximetry 06/15/15 06/15/15 06/15/15 08:00 09:00 09:23 Temperature 97.3 F L Pulse Rate 89 91 H Respiratory 26 H 27 H Rate Blood Pressure 145/88 123/76 123/76 O2 Sat by Pulse 100 100 Oximetry 06/15/15 06/15/15 06/15/15 10:00 11:00 12:00 Temperature 97.9 F Pulse Rate 91 H 88 87 Respiratory 26 H 25 H 26 H Rate Blood Pressure 133/86 130/82 133/85 O2 Sat by Pulse 100 100 100 Oximetry 06/15/15 06/15/15 13:00 14:00 Temperature Pulse Rate 78 76 Respiratory 24 27 H Rate Blood Pressure 124/86 122/82 O2 Sat by Pulse 100 100 Oximetry Intake and Output (last 12 hours): Intake & Output 06/14/15 06/15/15 06/15/15 18:59 06:59 18:59 Intake Total 726.8 1625 1505 Output Total 2294 2089 505 Balance -1568.2 -465 1000 Intake: Intake, IV Amount 646.8 1625 1255 Right Wrist 18.8 Left Forearm 475 1500 1255 Left Antecubital 153 Left Forearm 125 Oral 0 0 250 Tube Feeding 80 Output: Urine 2294 2089 505 Urethral (Yoo) 5216 3106 505 Stool 0 - Medications Medications: Current Medications Amiodarone HCl (Cordarone) 200 mg PO DAILY [facility] Last Admin: 06/15/15 09:23 Dose: 200 mg Aspirin (Aspirin) 325 mg PO DAILY [facility] Last Admin: 06/15/15 09:23 Dose: 325 mg Atenolol (Tenormin) 12.5 mg PO DAILY [facility] Last Admin: 06/15/15 11:45 Dose: 12.5 mg Clopidogrel Bisulfate (Plavix) 75 mg PO DAILY [facility] Last Admin: 06/15/15 09:23 Dose: 75 mg Enalapril Maleate (Vasotec) 2.5 mg PO DAILY [facility] Last Admin: 06/15/15 09:23 Dose: 2.5 mg Famotidine (Pepcid) 20 mg IVP Q12 [facility] Last Admin: 06/15/15 09:22 Dose: 20 mg Fosphenytoin Sodium 100 mg/ (Dextrose) 52 mls @ 100 mls/hr IV Q8H [facility] Last Admin: 06/15/15 14:24 Dose: 100 mls/hr Piperacillin Sod/Tazobactam Sod (Zosyn 3.375 Gm Iv Premix) 50 mls @ 100 mls/hr IVPB Q8H [facility] Last Admin: 06/15/15 07:35 Dose: 100 mls/hr Sodium Chloride (Sodium Chloride 0.9%) 1,000 mls @ 125 mls/hr IV .Q8H [facility] Last Admin: 06/15/15 15:02 Dose: Not Given Vancomycin HCl 750 mg/ Sodium (Chloride) 250 mls @ 166.6 mls/hr IVPB Q24H [facility] Last Admin: 06/14/15 16:31 Dose: 166.6 mls/hr Potassium Chloride (Potassium Chloride Oral Soln) 40 meq NG DAILY [facility] - Labs Labs (last 24 hours): Laboratory Results - last 24 hr 06/15/15 06/15/15 05:24 06:48 WBC 14.6 H RBC 3.95 L Hgb 12.0 Hct 36.2 MCV 91.6 D MCH 30.3 MCHC 33.1 RDW 14.2 Plt Count 149 D MPV 8.6 Neut % (Auto) 87.0 H Lymph % (Auto) 6.3 L [place] % (Auto) 6.6 Eos % (Auto) 0.0 Baso % (Auto) 0.1 Neut # 12.7 H Lymph # 0.9 L [place] # 1.0 H Eos # 0.0 Baso # 0.0 Neutrophils % (Manual) 79 H Band Neutrophils % 12 H Lymphocytes % (Manual) 7 L Monocytes % (Manual) 2 Platelet Estimate Normal Poikilocytosis (manual Slight pCO2 31.0 L pO2 447.0 H HCO3 21.1 L* ABG pH 7.440 ABG Total CO2 22.1 ABG O2 Saturation 100.0 ABG Base Excess -2.2 A-a O2 Difference 227.0 Mechanical Rate 16.000 FiO2 100.000 Tidal Volume 450.000 Sodium 139 Potassium 2.6 L Chloride 104 Carbon Dioxide 20 L Anion Gap 18 BUN 18 Creatinine 1.1 Est GFR ( Amer) > 60 Est GFR (Non-Af Amer) > 60 Random Glucose 126 H Calcium 7.4 L Phosphorus 2.7 Magnesium 1.9 Total Bilirubin 1.9 H AST 410 H D ALT 387 H D Alkaline Phosphatase 86 Total Protein 6.6 Albumin 3.3 L Globulin 3.2 Albumin/Globulin Ratio 1.0 Prolactin 21.5 H
--- NOTE | 2015-06-15 16:19 | CT ---
PROCEDURE: CT HEAD WITHOUT CONTRAST. HISTORY: follow up for stroke do it on 06/15/15 am COMPARISON: 06/14/2015 TECHNIQUE: Axial computed tomography images were obtained through the head/brain without intravenous contrast. Radiation dose: Total exam DLP = 1240.89 mGy-cm. FINDINGS: HEMORRHAGE: No intracranial hemorrhage. BRAIN: No mass effect or edema. Multifocal right basal ganglia infarct involving caudate nucleus head and body, lentiform nucleus and right gore radiata. No other infarct identified. No evidence of mass effect on right lateral ventricle. VENTRICLES: Unremarkable. No hydrocephalus. CALVARIUM: Unremarkable. PARANASAL SINUSES: Mild chronic pansinusitis. MASTOID AIR CELLS: Unremarkable as visualized. No inflammatory changes. OTHER FINDINGS: None. IMPRESSION: Multifocal right basal ganglia infarct. No hemorrhage. No mass effect. The results of this examination was discussed by telephone with Dr. Garcia at 4:15 p.m. on 06/15/2015.
--- NOTE | 2015-06-15 18:00 | CP.CCUPN ---
CCU Subjective - Physician Review Events Since Last Encounter (Free Text): 06/15/15 17:58 The Patient was seen and examined at the bedside with the ICU team. Management issues were discussed and formulated, 64 Y/O M S/P Cardiac arrest Patient remains unresponsive to painful stimuli, orally intubated CCU Objective - Vital Signs / Intake & Output Vital Signs (Last 4 hours): Vital Signs Pulse Resp BP Pulse Ox 06/15/15 15:00 72 25 H 123/87 99 06/15/15 14:00 76 27 H 122/82 100 Intake and Output (Last 8hrs): Intake & Output 06/15/15 06/15/15 06/15/15 06:59 14:59 22:59 Intake Total 1000 1505 Output Total 1160 505 Balance -160 1000 Intake: Intake, IV Amount 1000 1255 Left Forearm 1000 1255 Oral 0 250 Output: Urine 1160 505 Urethral (Yoo) 1160 505 Stool 0 - Physical Exam Head: Positive for: Normocephalic, Other (Laceration of head) Pupils: Positive for: Sluggish Extroacular Muscles: Positive for: EOMI Conjunctiva: Positive for: Normal. Negative for: Injected, Icteric Mouth: Positive for: Moist Mucous Membranes Neck: Positive for: Trachea Midline. Negative for: JVD, Lymphadenopathy Respiratory/Chest: Positive for: Rhonchi. Negative for: Respiratory Distress, Accessory Muscle Use Cardiovascular: Positive for: Regular Rate and Rhythm, Normal S1, S2. Negative for: Murmurs Abdomen: Positive for: Normal Bowel Sounds. Negative for: Tenderness, Distention - Medications Active Medications: Active Medications Generic Name Dose Route Start Last Admin Trade Name Antoniq PRN Reason Stop Dose Admin Amiodarone HCl 200 mg 06/15/15 10:06/15/15 09:23 Cordarone PO 200 mg DAILY [facility]OO Administration Aspirin 325 mg 06/14/15 10:00 06/15/15 09:23 Aspirin PO 325 mg DAILY JOO Administration Atenolol 12.5 mg 06/15/15 10:06/15/15 11:45 Tenormin PO 12.5 mg DAILY [facility]OO Administration Clopidogrel Bisulfate 75 mg 06/14/15 10:00 06/15/15 09:23 Plavix PO 75 mg DAILY [facility]OO Administration Enalapril Maleate 2.5 mg 06/14/15 10:00 06/15/15 09:23 Vasotec PO 2.5 mg DAILY [facility]OO Administration Famotidine 20 mg 06/14/15 00:45 06/15/15 09:22 Pepcid IVP 20 mg Q12 JOO Administration Fosphenytoin Sodium 100 mg/ 52 mls @ 100 mls/hr 06/14/15 06:45 06/15/15 14:24 Dextrose IV 100 mls/hr Q8H [facility]OO Administration Piperacillin Sod/Tazobactam Sod 50 mls @ 100 mls/hr 06/14/15 16:00 06/15/15 15: 32 Zosyn 3.375 Gm Iv Premix IVPB 100 mls/hr Q8H [facility]OO Administration Sodium Chloride 1,000 mls @ 125 mls/hr 06/14/15 14:45 06/15/15 15:02 Sodium Chloride 0.9% IV Not Given .Q8H JOO Vancomycin HCl 750 mg/ Sodium 250 mls @ 166.6 mls/hr 06/14/15 16:00 06/15/15 16 :26 Chloride IVPB 166.6 mls/hr Q24H JOO Administration Potassium Chloride 40 meq 06/16/15 10:00 Potassium Chloride Oral Soln NG DAILY JOO - Patient Studies Lab Studies: Microbiology Studies 06/14/15 Unknown Urine Culture - Final Urine,Yoo No Growth (<1,000 CFU/ML) Lab Studies 06/15/15 06/15/15 Range/Units 06:48 05:24 WBC 14.6 H (4.8-10.8) K/uL RBC 3.95 L (4.40-5.90) Mil/uL Hgb 12.0 (12.0-18.0) g/dL Hct 36.2 (35.0-51.0) % MCV 91.6 D (80.0-94.0) fL MCH 30.3 (27.0-31.0) pg MCHC 33.1 (33.0-37.0) g/dL RDW 14.2 (11.5-14.5) % Plt Count 149 D (130-400) K/uL MPV 8.6 (7.2-11.7) fL Neut % (Auto) 87.0 H (50.0-75.0) % Lymph % (Auto) 6.3 L (20.0-40.0) % Christian % (Auto) 6.6 (0.0-10.0) % Eos % (Auto) 0.0 (0.0-4.0) % Baso % (Auto) 0.1 (0.0-2.0) % Neut # 12.7 H (1.8-7.0) K/uL Lymph # 0.9 L (1.0-4.3) K/uL Christian # 1.0 H (0.0-0.8) K/uL Eos # 0.0 (0.0-0.7) K/uL Baso # 0.0 (0.0-0.2) K/uL Neutrophils % (Manual) 79 H (50-75) % Band Neutrophils % 12 H (0-0) % Lymphocytes % (Manual) 7 L (20-40) % Monocytes % (Manual) 2 (0-10) % Platelet Estimate Normal (NORMAL) Poikilocytosis (manual Slight pCO2 31.0 L (35.0-45.0) mm/Hg pO2 447.0 H (80.0-90.0) mm/Hg HCO3 21.1 L* (22.0-26.0) mmol/L ABG pH 7.440 (7.350-7.450) ABG Total CO2 22.1 mmol/L ABG O2 Saturation 100.0 % ABG Base Excess -2.2 mmol/L A-a O2 Difference 227.0 mm/Hg Mechanical Rate 16.000 FiO2 100.000 % Tidal Volume 450.000 Sodium 139 (132-148) mmol/L Potassium 2.6 L (3.6-5.0) mmol/L Chloride 104 (98-107) mmol/L Carbon Dioxide 20 L (22-30) mmol/L Anion Gap 18 (10-20) BUN 18 (9-20) mg/dL Creatinine 1.1 (0.8-1.5) mg/dL Est GFR ( Amer) > 60 Est GFR (Non-Af Amer) > 60 Random Glucose 126 H (75-110) mg/dL Calcium 7.4 L (8.4-10.2) mg/dL Phosphorus 2.7 (2.5-4.5) mg/dL Magnesium 1.9 (1.6-2.3) mg/dL Total Bilirubin 1.9 H (0.2-1.3) mg/dL AST 410 H D (17-59) U/L ALT 387 H D (21-72) U/L Alkaline Phosphatase 86 (38-126) U/L Total Protein 6.6 (6.3-8.2) g/dL Albumin 3.3 L (3.5-5.0) g/dL Globulin 3.2 (2.2-3.9) gm/dL Albumin/Globulin Ratio 1.0 (1.0-2.1) Prolactin 21.5 H (3.7-17.9) ng/mL Laboratory Results - last 24 hr 06/15/15 06/15/15 05:24 06:48 WBC 14.6 H RBC 3.95 L Hgb 12.0 Hct 36.2 MCV 91.6 D MCH 30.3 MCHC 33.1 RDW 14.2 Plt Count 149 D MPV 8.6 Neut % (Auto) 87.0 H Lymph % (Auto) 6.3 L Christian % (Auto) 6.6 Eos % (Auto) 0.0 Baso % (Auto) 0.1 Neut # 12.7 H Lymph # 0.9 L Christian # 1.0 H Eos # 0.0 Baso # 0.0 Neutrophils % (Manual) 79 H Band Neutrophils % 12 H Lymphocytes % (Manual) 7 L Monocytes % (Manual) 2 Platelet Estimate Normal Poikilocytosis (manual Slight pCO2 31.0 L pO2 447.0 H HCO3 21.1 L* ABG pH 7.440 ABG Total CO2 22.1 ABG O2 Saturation 100.0 ABG Base Excess -2.2 A-a O2 Difference 227.0 Mechanical Rate 16.000 FiO2 100.000 Tidal Volume 450.000 Sodium 139 Potassium 2.6 L Chloride 104 Carbon Dioxide 20 L Anion Gap 18 BUN 18 Creatinine 1.1 Est GFR ( Amer) > 60 Est GFR (Non-Af Amer) > 60 Random Glucose 126 H Calcium 7.4 L Phosphorus 2.7 Magnesium 1.9 Total Bilirubin 1.9 H AST 410 H D ALT 387 H D Alkaline Phosphatase 86 Total Protein 6.6 Albumin 3.3 L Globulin 3.2 Albumin/Globulin Ratio 1.0 Prolactin 21.5 H EKG/Cardiology Studies: Cardiology / EKG Studies 06/13/15 20:54 ELECTROCARDIOGRAM Stat Comment: repeat Mode Of Transportation: BED Reason For Exam: cp bed 6 Review of Systems - Review of Systems Systems not reviewed;Unavailable: Altered Mental Status Assessment/Plan (1) Anoxic encephalopathy Current Visit: Yes Status: Acute Comment: Most likely due to cardiac arrest Patient intubated and unresponsive to pain stimuli Neuro check Palliativ econsult called (2) Cardiac arrest Current Visit: Yes Status: Acute Comment: S/P V Tach arrest Continue Amiodarone drip Start ASA 325 mg po daily, Plavix 75 mg po daily, Crestor 2.5 mg po daily and Enalapril 2.5 mg po daily Poor prognosis for neurological recovery given th eprolonged cardiac arrest before ROSC (3) Bronchopneumonia Current Visit: Yes Status: Acute Comment: CXR with worsening airspace consolidation throughout the right lung. Cont IV Vanco and Zosyn (4) CAD (coronary artery disease) Current Visit: Yes Status: Acute Comment: Cardiac Catheterization showed occluded RCA and LAD (5) STEMI (ST elevation myocardial infarction) Current Visit: Yes Status: Acute (6) Seizures Current Visit: Yes Status: Acute Comment: likely secondary to anoxic injury phosphenytoin administered (7) Laceration of head Current Visit: Yes Status: Acute (8) Prophylactic measure Current Visit: Yes Status: Acute Comment: Pepcid 20 mg IVP q12 SCD's Plavix
--- NOTE | 2015-06-15 18:35 | PN ---
DATE: 06/15/2015 NEUROLOGICAL PROBLEM: Global cerebral dysfunction. This is probably due to anoxic insult. The patient is examined in the presence of the family members. PHYSICAL EXAMINATION: VITAL SIGNS: Blood pressure 123/87, pulse rate 72, respiratory rate 25. The patient is examined in the presence of his daughter and his . The patient remains comatose and not on sedation. Eyes are closed. Asymmetric pupil, good response to the light on the right side from 5 mm. to 3.5 mm on his left side, 6.5 mm to 5.5. Corneal reflex absent oculocephalic absent gag impaired. Quadriplegic. Deep tendon reflexes are absent. Plantars are mute and respond to pain. ASSESSMENT: Global cerebral dysfunction with patchy brainstem and dysfunction secondary to anoxic in sult. This damage is irreversible. This is more than 48 hour period. The patient does not show any visual or any positive physiologic response eliciting. Electroencephalogram shows a diffuse delta activities. No paroxysmal activity is noted. The overall prognosis is very poor. The patient's condition has been discussed with his daughter. D NR status has been discussed. The family wants him to get all necessary treatment for him. The dilma ent should not be on DNR. The patient's condition has been discussed with his nurse also. Dennis Garcia MD cc: [id number] TT: 06/15/2015 18:35:15
--- NOTE | 2015-06-15 19:56 | CP.PCM.PN ---
Subjective - Subjective Subjective: Medical Attending Note: Patient seen and examined by me. Patient s/p cardiac arrest, now with anoxic brain injury. Patient intubated. Patient not responsive to painful stimuli. Patient afebrile. Unable to obtain ROS from patient. Objective - Vital Signs/Intake and Output Vital Signs (last 24 hours): Vital Signs - 24 hr 06/14/15 06/14/15 06/14/15 20:00 21:00 22:00 Temperature 98.8 F Pulse Rate 74 76 76 Respiratory 24 25 H 23 Rate Blood Pressure 130/74 141/70 136/78 O2 Sat by Pulse 100 100 100 Oximetry 06/14/15 06/15/15 06/15/15 23:00 00:00 01:00 Temperature 98.2 F Pulse Rate 81 79 75 Respiratory 24 22 24 Rate Blood Pressure 135/79 133/78 135/80 O2 Sat by Pulse 100 100 100 Oximetry 06/15/15 06/15/15 06/15/15 02:00 03:00 04:00 Temperature 99.4 F Pulse Rate 82 80 85 Respiratory 22 22 24 Rate Blood Pressure 131/80 134/80 135/82 O2 Sat by Pulse 100 100 100 Oximetry 06/15/15 06/15/15 06/15/15 05:00 06:00 08:00 Temperature 97.3 F L Pulse Rate 85 81 89 Respiratory 23 22 26 H Rate Blood Pressure 137/85 141/87 145/88 O2 Sat by Pulse 100 100 100 Oximetry 06/15/15 06/15/15 06/15/15 09:00 09:23 10:00 Temperature Pulse Rate 91 H 91 H Respiratory 27 H 26 H Rate Blood Pressure 123/76 123/76 133/86 O2 Sat by Pulse 100 100 Oximetry 06/15/15 06/15/15 06/15/15 11:00 12:00 13:00 Temperature 97.9 F Pulse Rate 88 87 78 Respiratory 25 H 26 H 24 Rate Blood Pressure 130/82 133/85 124/86 O2 Sat by Pulse 100 100 100 Oximetry 06/15/15 06/15/15 06/15/15 14:00 15:00 16:00 Temperature 99 F Pulse Rate 76 72 Respiratory 27 H 25 H Rate Blood Pressure 122/82 123/87 O2 Sat by Pulse 100 99 Oximetry 06/15/15 06/15/15 17:00 18:00 Temperature Pulse Rate 73 70 Respiratory 25 H 26 H Rate Blood Pressure 107/76 116/78 O2 Sat by Pulse 100 100 Oximetry Intake and Output (last 12 hours): Intake & Output 06/15/15 06/15/15 06/16/15 06:59 18:59 06:59 Intake Total 1625 2065 Output Total 2090 745 Balance -465 1320 Intake: Intake, IV Amount 1625 1755 Left Forearm 1500 1755 Left Forearm 125 Oral 0 250 Tube Feeding 60 Output: Urine 2089 745 Urethral (Yoo) 2089 745 Stool 0 - Medications Medications: Current Medications Amiodarone HCl (Cordarone) 200 mg PO DAILY [facility] Last Admin: 06/15/15 09:23 Dose: 200 mg Aspirin (Aspirin) 325 mg PO DAILY [facility] Last Admin: 06/15/15 09:23 Dose: 325 mg Atenolol (Tenormin) 12.5 mg PO DAILY [facility] Last Admin: 06/15/15 11:45 Dose: 12.5 mg Clopidogrel Bisulfate (Plavix) 75 mg PO DAILY [facility] Last Admin: 06/15/15 09:23 Dose: 75 mg Enalapril Maleate (Vasotec) 2.5 mg PO DAILY [facility] Last Admin: 06/15/15 09:23 Dose: 2.5 mg Famotidine (Pepcid) 20 mg IVP Q12 [facility] Last Admin: 06/15/15 09:22 Dose: 20 mg Fosphenytoin Sodium 100 mg/ (Dextrose) 52 mls @ 100 mls/hr IV Q8H [facility] Last Admin: 06/15/15 14:24 Dose: 100 mls/hr Piperacillin Sod/Tazobactam Sod (Zosyn 3.375 Gm Iv Premix) 50 mls @ 100 mls/hr IVPB Q8H [facility] Last Admin: 06/15/15 15:32 Dose: 100 mls/hr Sodium Chloride (Sodium Chloride 0.9%) 1,000 mls @ 125 mls/hr IV .Q8H [facility] Last Admin: 06/15/15 15:02 Dose: Not Given Vancomycin HCl 750 mg/ Sodium (Chloride) 250 mls @ 166.6 mls/hr IVPB Q24H [facility] Last Admin: 06/15/15 16:26 Dose: 166.6 mls/hr Potassium Chloride (Potassium Chloride Oral Soln) 40 meq NG DAILY [facility] - Labs Labs (last 24 hours): Laboratory Results - last 24 hr 06/15/15 06/15/15 05:24 06:48 WBC 14.6 H RBC 3.95 L Hgb 12.0 Hct 36.2 MCV 91.6 D MCH 30.3 MCHC 33.1 RDW 14.2 Plt Count 149 D MPV 8.6 Neut % (Auto) 87.0 H Lymph % (Auto) 6.3 L [place] % (Auto) 6.6 Eos % (Auto) 0.0 Baso % (Auto) 0.1 Neut # 12.7 H Lymph # 0.9 L [place] # 1.0 H Eos # 0.0 Baso # 0.0 Neutrophils % (Manual) 79 H Band Neutrophils % 12 H Lymphocytes % (Manual) 7 L Monocytes % (Manual) 2 Platelet Estimate Normal Poikilocytosis (manual Slight pCO2 31.0 L pO2 447.0 H HCO3 21.1 L* ABG pH 7.440 ABG Total CO2 22.1 ABG O2 Saturation 100.0 ABG Base Excess -2.2 A-a O2 Difference 227.0 Mechanical Rate 16.000 FiO2 100.000 Tidal Volume 450.000 Sodium 139 Potassium 2.6 L Chloride 104 Carbon Dioxide 20 L Anion Gap 18 BUN 18 Creatinine 1.1 Est GFR ( Amer) > 60 Est GFR (Non-Af Amer) > 60 Random Glucose 126 H Calcium 7.4 L Phosphorus 2.7 Magnesium 1.9 Total Bilirubin 1.9 H AST 410 H D ALT 387 H D Alkaline Phosphatase 86 Total Protein 6.6 Albumin 3.3 L Globulin 3.2 Albumin/Globulin Ratio 1.0 Prolactin 21.5 H - Constitutional Appears: No Acute Distress, Other (intubated) - Head Exam Additional comments: head wrapped with gauze, c/D/I - Respiratory Exam Respiratory Exam: absent: Rales, Wheezes Additional comments: positive mechanical vent sounds heard throughout - Cardiovascular Exam Cardiovascular Exam: REGULAR RHYTHM, +S1, +S2. absent: Diastolic murmur, Gallop , Rubs, Systolic Murmur - GI/Abdominal Exam GI & Abdominal Exam: Normal Bowel Sounds, Soft. absent: Distended - Extremities Exam Extremities exam: pedal pulses present Additional comments: no c/c/e appreciated - Neurological Exam Neurological exam: absent: Alert Additional comments: intubated, not sedated does not respond to painful stimuli - Skin Skin Exam: Dry, Warm Assessment/Plan (1) Cardiac arrest Current Visit: Yes Status: Acute Comment: S/P V-Tach arrest Continue Amiodarone 200mg daily Cont ASA 325 mg po daily Cont Plavix 75 mg po daily Cont Enalapril 2.5 mg po daily Cont atenolol 12.5mg daily Monitor (2) Respiratory failure Current Visit: Yes Status: Acute Comment: patient intubated not sedated, does not repsond to painful stimuli Vent settings as per ICU monitor (3) Anoxic encephalopathy Current Visit: Yes Status: Acute Comment: Most likely due to cardiac arrest Dr. Garcia on case-help appreciated Head CT with no acute hemorrhage (please see official read) Patient intubated Unresponsive to painful stimuli Continue Neuro checks Palliative care on case (4) STEMI (ST elevation myocardial infarction) Current Visit: Yes Status: Acute Comment: s/p cath with occluded RCA and left main Continue ASA 325mg PO daily Cont PLavix 75mg PO daily Cont atenolol 12.5mg pO daily Cont Vasotec 2.5mg PO daily Monitor (5) Bronchopneumonia Current Visit: Yes Status: Acute Comment: CXR with worsening airspace consolidation throughout the right lung on CXR 06/14/15 (please see full report) CXR 06/15: shows no infiltrate (please see full report) Cont Zosyn and vanco F/u blood cultures monitor (6) Laceration of head Current Visit: Yes Status: Acute Comment: s/p sutures monitor (7) Seizures Current Visit: Yes Status: Acute Comment: Dr. Garcia on case likely secondary to anoxic injury Fosphenytoin 100mg IVPB q8hrs Monitor (8) Prophylactic measure Current Visit: Yes Status: Acute Comment: Pepcid 20 mg IVP q12 SCD's Plavix - Date & Time Date: 06/15/15 Time: 19:50 Attending/Attestation - Attestation I have personally seen and examined this patient.: Yes I have fully participated in the care of the patient.: Yes I have reviewed all pertinent clinical information: Yes
[2015-06-16 06:01] LABS: ARTERIAL BLOOD GAS HCO3 22.1 mmol/L (22.0-26.0)
[2015-06-16] MEDS: Fosphenytoin 100 MG in Dextrose 5% In Water 50 ML IV SCH ×3 (06:08→22:02)
[2015-06-16 06:24] LABS: BASO % 0.1 % (0.0-2.0); HEMOGLOBIN 11.5 g/dL (12.0-18.0); LYMPH # 0.9 K/uL (1.0-4.3); MEAN CELL VOLUME 92.2 fL (80.0-94.0); MEAN CORPUSCULAR HEMOGLOBIN 30.2 pg (27.0-31.0); MEAN CORPUSCULAR HGB CONC 32.8 g/dL (33.0-37.0); MONO # 0.7 K/uL (0.0-0.8); NEUT % 88.9 % (50.0-75.0); NRBC % 0.1 % (0.0-0.0); PLATELET COUNT 158 K/uL (130-400); RBC 3.81 Mil/uL (4.40-5.90); RED CELL DISTRIBUTION WIDTH 14.2 % (11.5-14.5); WHITE BLOOD COUNT 14.6 K/uL (4.8-10.8)
[2015-06-16 06:38] LABS: ALBUMIN 2.9 g/dL (3.5-5.0)
[2015-06-16 06:41] LABS: ALB/GLOB RATIO 0.9 (1.0-2.1); BLOOD UREA NITROGEN 24 mg/dL (9-20); GFR NON-AFRICAN AMERICAN > 60
[2015-06-16 06:42] LABS: CALCIUM 7.8 mg/dL (8.4-10.2)
[2015-06-16] MEDS: Sodium Chloride 0.9% 1,000 ML IV SCH ×2 (09:17→16:20)
[2015-06-16] MEDS: Piperacill/Tazo 3.375gm in Dex 50 ML IVPB SCH ×3 (09:23→23:42)
[2015-06-16 09:30] LABS: BANDS 4 % (0-0); LYMPHOCYTE 7 % (20-40); MONOCYTE 4 % (0-10); NEUTROPHIL 85 % (50-75); PLATELET ESTIMATE NORMAL (NORMAL); TOTAL CELLS COUNTED 100
[2015-06-16 09:31] LABS: ANISOCYTOSIS SLIGHT; BURR CELLS SLIGHT; OVALOCYTES SLIGHT; POIKILOCYTOSIS SLIGHT
[2015-06-16] MEDS: Potassium Chloride 20 mEq/15 ml LIQ UD NG SCH (09:43)
[2015-06-16 10:28] LABS: ALT/SGPT 1206 U/L (21-72); AST/SGOT 1017 U/L (17-59)
--- NOTE | 2015-06-16 11:35 | PN ---
DATE: 06/16/2015 The patient is still deeply comatose. No reported ventricular arrhythmia. PHYSICAL EXAMINATION: VITAL SIGNS: Blood pressure 151/99, heart rate 82, respiration 22. HEENT: Dressings applied to the scalp wound. CHEST: Clear. HEART: S1, S2 regular. EXTREMITIES: No edema. LABORATORIES: White count 14.6, hemoglobin and hematocrit 11.5 and 35.1. SMA-7 is within normal chao its except for glucose of 152 and BUN of 24. Head CT scan performed yesterday revealed no evidence o f intracranial mass, hemorrhage or acute infarction, chronic pansinusitis. ASSESSMENT: 1. Status post cardiac arrest and successful PTCI to totally occluded right coronary artery with kno wn ostial left main disease. 2. Anoxic encephalopathy. RECOMMENDATIONS: Continue current aspirin, amiodarone, Pepcid, Plavix, atenolol, Vasotec and intrave nous vancomycin and Zosyn. Obtain blood cultures as the patient was febrile earlier today. Ashu Hamlin MD cc: [id number] TT: 06/16/2015 11:35:29 jeanna
--- NOTE | 2015-06-16 11:43 | CP.CCUPN ---
CCU Subjective - Physician Review Subjective (Free Text): 06/16/15 11:40 64 Y/O M S/P Cardiac arrest Patient remains unresponsive to painful stimuli, orally intubated on vent support CCU Objective - Vital Signs / Intake & Output Vital Signs (Last 4 hours): Vital Signs Temp Pulse Resp BP Pulse Ox 06/16/15 11:00 79 30 H 129/92 H 99 06/16/15 10:00 82 34 H 147/96 H 100 06/16/15 09:43 151/99 H 06/16/15 09:00 99 H 31 H 151/99 H 99 06/16/15 08:00 97.9 F 84 30 H 152/100 H 100 Intake and Output (Last 8hrs): Intake & Output 06/15/15 06/16/15 06/16/15 22:59 06:59 14:59 Intake Total 1140 1160 577.5 Output Total 420 335 200 Balance 720 825 377.5 Intake: Intake, IV Amount 1000 1000 342.5 Left Forearm 1000 1000 300 L FA #18 42.5 Oral 0 Tube Feeding 140 160 100 Other 135 Output: Urine 420 335 200 Urethral (Yoo) 420 335 200 - Physical Exam Head: Positive for: Normocephalic, Other (Laceration of head) Pupils: Positive for: Sluggish Extroacular Muscles: Positive for: EOMI Conjunctiva: Positive for: Normal. Negative for: Injected, Icteric Mouth: Positive for: Moist Mucous Membranes Neck: Positive for: Trachea Midline. Negative for: JVD, Lymphadenopathy Respiratory/Chest: Positive for: Rhonchi. Negative for: Respiratory Distress, Accessory Muscle Use Cardiovascular: Positive for: Regular Rate and Rhythm, Normal S1, S2. Negative for: Murmurs Abdomen: Positive for: Normal Bowel Sounds. Negative for: Tenderness, Distention - Medications Active Medications: Active Medications Generic Name Dose Route Start Last Admin Trade Name Freq PRN Reason Stop Dose Admin Amiodarone HCl 200 mg 06/15/15 10:06/16/15 09:44 Cordarone PO 200 mg DAILY [facility] Administration Aspirin 325 mg 06/14/15 10:00 06/16/15 09:43 Aspirin PO 325 mg DAILY [facility] Administration Atenolol 12.5 mg 06/15/15 10:00 06/16/15 09:44 Tenormin PO 12.5 mg DAILY [facility] Administration Clopidogrel Bisulfate 75 mg 06/14/15 10:00 06/16/15 09:44 Plavix PO 75 mg DAILY [facility] Administration Enalapril Maleate 2.5 mg 06/14/15 10:00 06/16/15 09:43 Vasotec PO 2.5 mg DAILY [facility] Administration Famotidine 20 mg 06/14/15 00:45 06/16/15 09:44 Pepcid IVP 20 mg Q12 [facility] Administration Fosphenytoin Sodium 100 mg/ 52 mls @ 100 mls/hr 06/14/15 06:45 06/16/15 06:08 Dextrose IV 100 mls/hr Q8H [facility] Administration Piperacillin Sod/Tazobactam Sod 50 mls @ 100 mls/hr 06/14/15 16:00 06/16/15 09: 23 Zosyn 3.375 Gm Iv Premix IVPB 100 mls/hr Q8H [facility] Administration Sodium Chloride 1,000 mls @ 125 mls/hr 06/14/15 14:45 06/16/15 09:17 Sodium Chloride 0.9% IV 125 mls/hr .Q8H [facility] Administration Vancomycin HCl 750 mg/ Sodium 250 mls @ 166.6 mls/hr 06/14/15 16:00 06/15/15 16 :26 Chloride IVPB 166.6 mls/hr Q24H [facility] Administration Potassium Phosphate 15 mmole/ 255 mls @ 42.5 mls/hr 06/16/15 09:11 06/16/15 09: 58 Dextrose IVPB 06/16/15 15:10 42.5 mls/hr ONCE ONE Administration Potassium Chloride 40 meq 06/16/15 10:00 06/16/15 09:43 Potassium Chloride Oral Soln NG 40 meq DAILY [facility] Administration - Patient Studies Lab Studies: Microbiology Studies 06/14/15 14:55 Blood Culture - Preliminary Blood NO GROWTH AFTER 24 HOURS 06/14/15 15:20 Blood Culture - Preliminary Blood NO GROWTH AFTER 24 HOURS 06/14/15 Unknown MRSA Culture (Admit) - Final Nose MRSA NOT DETECTED 06/14/15 Unknown Urine Culture - Final Urine,Yoo No Growth (<1,000 CFU/ML) Lab Studies 06/16/15 06/16/15 Range/Units 06:10 05:32 WBC 14.6 H (4.8-10.8) K/uL RBC 3.81 L (4.40-5.90) Mil/uL Hgb 11.5 L (12.0-18.0) g/dL Hct 35.1 (35.0-51.0) % MCV 92.2 (80.0-94.0) fL MCH 30.2 (27.0-31.0) pg MCHC 32.8 L (33.0-37.0) g/dL RDW 14.2 (11.5-14.5) % Plt Count 158 (130-400) K/uL MPV 9.0 (7.2-11.7) fL Neut % (Auto) 88.9 H (50.0-75.0) % Lymph % (Auto) 6.0 L (20.0-40.0) % [place] % (Auto) 5.0 (0.0-10.0) % Eos % (Auto) 0.0 (0.0-4.0) % Baso % (Auto) 0.1 (0.0-2.0) % Neut # 13.0 H (1.8-7.0) K/uL Lymph # 0.9 L (1.0-4.3) K/uL [place] # 0.7 (0.0-0.8) K/uL Eos # 0.0 (0.0-0.7) K/uL Baso # 0.0 (0.0-0.2) K/uL Neutrophils % (Manual) 85 H (50-75) % Band Neutrophils % 4 H (0-0) % Lymphocytes % (Manual) 7 L (20-40) % Monocytes % (Manual) 4 (0-10) % Platelet Estimate Normal (NORMAL) Poikilocytosis (manual Slight Anisocytosis (manual) Slight Ovalocytes Slight [place] Cells Slight pCO2 29.0 L (35.0-45.0) mm/Hg pO2 84.0 (80.0-90.0) mm/Hg HCO3 22.1 (22.0-26.0) mmol/L ABG pH 7.490 H (7.350-7.450) ABG Total CO2 23.0 mmol/L ABG O2 Saturation 97.0 % ABG Base Excess -0.3 mmol/L A-a O2 Difference 165.0 mm/Hg Mechanical Rate 16.000 FiO2 40.000 % Tidal Volume 450.000 Sodium 137 (132-148) mmol/L Potassium 3.6 (3.6-5.0) mmol/L Chloride 107 (98-107) mmol/L Carbon Dioxide 22 (22-30) mmol/L Anion Gap 12 (10-20) BUN 24 H (9-20) mg/dL Creatinine 1.0 (0.8-1.5) mg/dL Est GFR ( Amer) > 60 Est GFR (Non-Af Amer) > 60 Random Glucose 152 H (75-110) mg/dL Calcium 7.8 L (8.4-10.2) mg/dL Phosphorus 1.6 L (2.5-4.5) mg/dL Magnesium 2.2 (1.6-2.3) mg/dL Total Bilirubin 1.3 (0.2-1.3) mg/dL AST 1017 H (17-59) U/L ALT 1206 H (21-72) U/L Alkaline Phosphatase 96 (38-126) U/L Total Protein 6.1 L (6.3-8.2) g/dL Albumin 2.9 L (3.5-5.0) g/dL Globulin 3.2 (2.2-3.9) gm/dL Albumin/Globulin Ratio 0.9 L (1.0-2.1) Laboratory Results - last 24 hr 06/16/15 06/16/15 05:32 06:10 WBC 14.6 H RBC 3.81 L Hgb 11.5 L Hct 35.1 MCV 92.2 MCH 30.2 MCHC 32.8 L RDW 14.2 Plt Count 158 MPV 9.0 Neut % (Auto) 88.9 H Lymph % (Auto) 6.0 L [place] % (Auto) 5.0 Eos % (Auto) 0.0 Baso % (Auto) 0.1 Neut # 13.0 H Lymph # 0.9 L [place] # 0.7 Eos # 0.0 Baso # 0.0 Neutrophils % (Manual) 85 H Band Neutrophils % 4 H Lymphocytes % (Manual) 7 L Monocytes % (Manual) 4 Platelet Estimate Normal Poikilocytosis (manual Slight Anisocytosis (manual) Slight Ovalocytes Slight [place] Cells Slight pCO2 29.0 L pO2 84.0 HCO3 22.1 ABG pH 7.490 H ABG Total CO2 23.0 ABG O2 Saturation 97.0 ABG Base Excess -0.3 A-a O2 Difference 165.0 Mechanical Rate 16.000 FiO2 40.000 Tidal Volume 450.000 Sodium 137 Potassium 3.6 Chloride 107 Carbon Dioxide 22 Anion Gap 12 BUN 24 H Creatinine 1.0 Est GFR ( Amer) > 60 Est GFR (Non-Af Amer) > 60 Random Glucose 152 H Calcium 7.8 L Phosphorus 1.6 L Magnesium 2.2 Total Bilirubin 1.3 AST 1017 H ALT 1206 H Alkaline Phosphatase 96 Total Protein 6.1 L Albumin 2.9 L Globulin 3.2 Albumin/Globulin Ratio 0.9 L EKG/Cardiology Studies: Cardiology / EKG Studies 06/13/15 20:54 ELECTROCARDIOGRAM Stat Comment: repeat Mode Of Transportation: BED Reason For Exam: cp bed 6 Critical Care Progress Note - Ventilator Checklist Head of Bed 30 Degrees: Yes PUD Prophalyxis: Yes DVT Prophylaxis: Yes - Vent Settings MODE:: ASSIST CONTROL Assessment/Plan (1) Anoxic encephalopathy Current Visit: Yes Status: Acute Comment: Most likely due to cardiac arrest Head CT with no acute hemorrhage (please see official read) Patient intubated Unresponsive to painful stimuli Continue Neuro checks Palliative care on case (2) Bronchopneumonia Current Visit: Yes Status: Acute Comment: CXR with worsening airspace consolidation throughout the right lung ) Cont Zosyn and vanco F/u blood cultures monitor (3) Cardiac arrest Current Visit: Yes Status: Acute Comment: S/P V-Tach arrest Continue Amiodarone 200mg daily Cont ASA 325 mg po daily Cont Plavix 75 mg po daily Cont Enalapril 2.5 mg po daily Cont atenolol 12.5mg daily Monitor (4) Respiratory failure Current Visit: Yes Status: Acute Comment: patient intubated not sedated, does not repsond to painful stimuli Vent settings as per ICU monitor (5) STEMI (ST elevation myocardial infarction) Current Visit: Yes Status: Acute Comment: s/p cath with occluded RCA and left main Continue ASA 325mg PO daily Cont PLavix 75mg PO daily Cont atenolol 12.5mg pO daily Cont Vasotec 2.5mg PO daily Monitor Cont PLavix 75mg PO daily Cont atenolol 12.5mg pO daily Cont Vasotec 2.5mg PO daily Monitor
--- NOTE | 2015-06-16 16:18 | RAD ---
PROCEDURE: CHEST RADIOGRAPH, 1 VIEW HISTORY: ett check COMPARISON: 06/15/2015 FINDINGS: LUNGS: Clear. PLEURA: No pneumothorax or pleural fluid seen. CARDIOVASCULAR: ET tube and NG tube unchanged, grossly. OSSEOUS STRUCTURES: No significant abnormalities. VISUALIZED UPPER ABDOMEN: Normal. OTHER FINDINGS: None. IMPRESSION: No interval change.
--- NOTE | 2015-06-16 19:35 | CP.PCM.PN ---
Subjective - Subjective Subjective: Medical Attending Note: Patient seen and examined by me. Patient intubated. Patient unresponsive to painful stimuli. Patient febrile. On vent support. Unable to obtain ROS. Patient s/p cardiac arrest with likely anoxic brain injury. Objective - Vital Signs/Intake and Output Vital Signs (last 24 hours): Vital Signs - 24 hr 06/15/15 06/15/15 06/15/15 20:00 21:00 22:00 Temperature 100.1 F H Pulse Rate 78 76 79 Respiratory 21 23 22 Rate Blood Pressure 121/87 118/85 123/85 O2 Sat by Pulse 99 100 100 Oximetry 06/15/15 06/16/15 06/16/15 23:00 00:00 01:00 Temperature 101.8 F H Pulse Rate 82 85 88 Respiratory 22 21 23 Rate Blood Pressure 124/84 123/85 119/85 O2 Sat by Pulse 100 99 100 Oximetry 06/16/15 06/16/15 06/16/15 02:00 03:00 04:00 Temperature 100.5 F H Pulse Rate 81 84 82 Respiratory 22 21 20 Rate Blood Pressure 124/88 132/89 138/92 H O2 Sat by Pulse 100 100 100 Oximetry 06/16/15 06/16/15 06/16/15 05:00 06:00 07:00 Temperature Pulse Rate 84 82 82 Respiratory 20 22 33 H Rate Blood Pressure 137/93 H 147/97 H 147/96 H O2 Sat by Pulse 100 100 100 Oximetry 06/16/15 06/16/15 06/16/15 08:00 09:00 09:43 Temperature 97.9 F Pulse Rate 84 99 H Respiratory 30 H 31 H Rate Blood Pressure 152/100 H 151/99 H 151/99 H O2 Sat by Pulse 100 99 Oximetry 06/16/15 06/16/15 06/16/15 10:00 11:00 12:00 Temperature 99.2 F Pulse Rate 82 79 79 Respiratory 34 H 30 H 31 H Rate Blood Pressure 147/96 H 129/92 H 131/93 H O2 Sat by Pulse 100 99 100 Oximetry 06/16/15 06/16/15 06/16/15 13:00 14:00 15:00 Temperature Pulse Rate 76 79 80 Respiratory 30 H 30 H 30 H Rate Blood Pressure 132/88 129/84 129/85 O2 Sat by Pulse 95 99 99 Oximetry 06/16/15 06/16/1506/16/15 16:00 17:00 18:00 Temperature 101 F H 100.7 F H 99.7 F H Pulse Rate 86 80 70 Respiratory 33 H 29 H 28 H Rate Blood Pressure 119/62 128/91 H 120/86 O2 Sat by Pulse 97 98 100 Oximetry Intake and Output (last 12 hours): Intake & Output 06/16/15 06/16/15 06/17/15 06:59 18:59 06:59 Intake Total 1740 2027.5 Output Total 515 635 Balance 1225 1392.5 Intake: Intake, IV Amount 1500 1562.5 Left Forearm 1500 1350 L FA #18 212.5 Tube Feeding 240 280 Other 185 Output: Urine 515 635 Urethral (Yoo) 515 635 - Medications Medications: Current Medications Amiodarone HCl (Cordarone) 200 mg PO DAILY [facility] Last Admin: 06/16/15 09:44 Dose: 200 mg Aspirin (Aspirin) 325 mg PO DAILY [facility] Last Admin: 06/16/15 09:43 Dose: 325 mg Atenolol (Tenormin) 12.5 mg PO DAILY [facility] Last Admin: 06/16/15 09:44 Dose: 12.5 mg Clopidogrel Bisulfate (Plavix) 75 mg PO DAILY [facility] Last Admin: 06/16/15 09:44 Dose: 75 mg Enalapril Maleate (Vasotec) 2.5 mg PO DAILY [facility] Last Admin: 06/16/15 09:43 Dose: 2.5 mg Famotidine (Pepcid) 20 mg IVP Q12 [facility] Last Admin: 06/16/15 09:44 Dose: 20 mg Fosphenytoin Sodium 100 mg/ (Dextrose) 52 mls @ 100 mls/hr IV Q8H [facility] Last Admin: 06/16/15 14:29 Dose: 100 mls/hr Piperacillin Sod/Tazobactam Sod (Zosyn 3.375 Gm Iv Premix) 50 mls @ 100 mls/hr IVPB Q8H [facility] Last Admin: 06/16/15 17:25 Dose: 100 mls/hr Sodium Chloride (Sodium Chloride 0.9%) 1,000 mls @ 125 mls/hr IV .Q8H [facility] Last Admin: 06/16/15 16:20 Dose: 125 mls/hr Vancomycin HCl 750 mg/ Sodium (Chloride) 250 mls @ 166.6 mls/hr IVPB Q24H [facility] Last Admin: 06/16/15 16:19 Dose: 166.6 mls/hr Potassium Chloride (Potassium Chloride Oral Soln) 40 meq NG DAILY [facility] Last Admin: 06/16/15 09:43 Dose: 40 meq - Labs Labs (last 24 hours): Laboratory Results - last 24 hr 06/16/15 06/16/15 05:32 06:10 WBC 14.6 H RBC 3.81 L Hgb 11.5 L Hct 35.1 MCV 92.2 MCH 30.2 MCHC 32.8 L RDW 14.2 Plt Count 158 MPV 9.0 Neut % (Auto) 88.9 H Lymph % (Auto) 6.0 L [place] % (Auto) 5.0 Eos % (Auto) 0.0 Baso % (Auto) 0.1 Neut # 13.0 H Lymph # 0.9 L [place] # 0.7 Eos # 0.0 Baso # 0.0 Neutrophils % (Manual) 85 H Band Neutrophils % 4 H Lymphocytes % (Manual) 7 L Monocytes % (Manual) 4 Platelet Estimate Normal Poikilocytosis (manual Slight Anisocytosis (manual) Slight Ovalocytes Slight [place] Cells Slight pCO2 29.0 L pO2 84.0 HCO3 22.1 ABG pH 7.490 H ABG Total CO2 23.0 ABG O2 Saturation 97.0 ABG Base Excess -0.3 A-a O2 Difference 165.0 Mechanical Rate 16.000 FiO2 40.000 Tidal Volume 450.000 Sodium 137 Potassium 3.6 Chloride 107 Carbon Dioxide 22 Anion Gap 12 BUN 24 H Creatinine 1.0 Est GFR ( Amer) > 60 Est GFR (Non-Af Amer) > 60 Random Glucose 152 H Calcium 7.8 L Phosphorus 1.6 L Magnesium 2.2 Total Bilirubin 1.3 AST 1017 H ALT 1206 H Alkaline Phosphatase 96 Total Protein 6.1 L Albumin 2.9 L Globulin 3.2 Albumin/Globulin Ratio 0.9 L - Constitutional Appears: No Acute Distress, Other (intubated) - Head Exam Additional comments: laceration, sutures present - ENT Exam ENT Exam: Mucous Membranes Moist - Respiratory Exam Respiratory Exam: absent: Rales, Wheezes Additional comments: mechanical vent sounds throughout coarse breath sounds - Cardiovascular Exam Cardiovascular Exam: REGULAR RHYTHM, +S1, +S2. absent: Diastolic murmur, Systolic Murmur - GI/Abdominal Exam GI & Abdominal Exam: Normal Bowel Sounds, Soft. absent: Distended - Extremities Exam Extremities exam: pedal pulses present Additional comments: no edema appreciated b/l SCDs in place - Neurological Exam Additional comments: pt intubated unresponsive to painful stimuli - Skin Skin Exam: Dry, Warm Assessment/Plan (1) Cardiac arrest Current Visit: Yes Status: Acute Comment: S/P V-Tach arrest Continue Amiodarone 200mg daily Cont ASA 325 mg po daily Cont Plavix 75 mg po daily Cont Enalapril 2.5 mg po daily Cont atenolol 12.5mg daily (2) Respiratory failure Current Visit: Yes Status: Acute Comment: patient intubated does not repsond to painful stimuli Vent settings as per ICU monitor (3) Anoxic encephalopathy Current Visit: Yes Status: Acute Comment: Most likely due to cardiac arrest Head CT with no acute hemorrhage (please see official read) Patient intubated Does not respond to painful stimuli Continue Neuro checks Palliative care on case (4) STEMI (ST elevation myocardial infarction) Current Visit: Yes Status: Acute Comment: s/p cath with occluded RCA and left main Continue ASA 325mg PO daily Cont Plavix 75mg PO daily Cont atenolol 12.5mg pO daily Cont Vasotec 2.5mg PO daily Monitor (5) Bronchopneumonia Current Visit: Yes Status: Acute Comment: CXR with worsening airspace consolidation throughout the right lung Cont Zosyn and vanco Blood cultures 06/14/15: neg x 24 hours Patient febrile monitor (6) Laceration of head Current Visit: Yes Status: Acute Comment: s/p sutures, wound care monitor (7) Seizures Current Visit: Yes Status: Acute Comment: Dr. Garcia on case likely secondary to anoxic injury Cont Fosphenytoin 100mg IVPB q8hrs Monitor (8) Prophylactic measure Current Visit: Yes Status: Acute Comment: Pepcid 20 mg IVP q12 SCD's Plavix - Date & Time Date: 06/16/15 Time: 19:35 Attending/Attestation - Attestation I have personally seen and examined this patient.: Yes I have fully participated in the care of the patient.: Yes I have reviewed all pertinent clinical information: Yes
[2015-06-17] MEDS: Sodium Chloride 0.9% 1,000 ML IV SCH ×6 (01:11→22:16)
[2015-06-17 05:54] LABS: ARTERIAL BLOOD GAS HCO3 23.1 mmol/L (22.0-26.0); ARTERIAL BLOOD GAS TCO2 23.9 mmol/L
[2015-06-17] MEDS: Fosphenytoin 100 MG in Dextrose 5% In Water 50 ML IV SCH ×3 (06:27→22:15)
[2015-06-17 07:28] LABS: BASO % 0.2 % (0.0-2.0); EOS % 0.1 % (0.0-4.0); LYMPH # 0.8 K/uL (1.0-4.3); MONO # 0.8 K/uL (0.0-0.8); NEUT # 9.5 K/uL (1.8-7.0); RED CELL DISTRIBUTION WIDTH 14.2 % (11.5-14.5); WHITE BLOOD COUNT 11.2 K/uL (4.8-10.8)
[2015-06-17 07:34] LABS: HEMOGLOBIN 11.7 g/dL (12.0-18.0); LYMPH % 7.3 % (20.0-40.0); MEAN CELL VOLUME 92.5 fL (80.0-94.0); MEAN CORPUSCULAR HEMOGLOBIN 30.7 pg (27.0-31.0); MEAN CORPUSCULAR HGB CONC 33.2 g/dL (33.0-37.0); MEAN PLATELET VOLUME 8.8 fL (7.2-11.7); MONO % 7.1 % (0.0-10.0); NEUT % 85.3 % (50.0-75.0); PLATELET COUNT 150 K/uL (130-400); RBC 3.81 Mil/uL (4.40-5.90)
[2015-06-17 08:01] LABS: ALBUMIN 2.9 g/dL (3.5-5.0)
[2015-06-17 08:04] LABS: ALB/GLOB RATIO 0.9 (1.0-2.1); AST/SGOT 714 U/L (17-59); BLOOD UREA NITROGEN 18 mg/dL (9-20); GFR NON-AFRICAN AMERICAN > 60
[2015-06-17 08:05] LABS: CALCIUM 7.7 mg/dL (8.4-10.2)
[2015-06-17 08:23] LABS: ALT/SGPT 1331 U/L (21-72)
[2015-06-17 08:24] LABS: BANDS 1 % (0-0); LYMPHOCYTE 9 % (20-40); MONOCYTE 4 % (0-10); NEUTROPHIL 86 % (50-75); TOTAL CELLS COUNTED 100
[2015-06-17 08:25] LABS: PLATELET ESTIMATE NORMAL (NORMAL)
[2015-06-17 08:26] LABS: ANISOCYTOSIS SLIGHT
[2015-06-17] MEDS: Piperacill/Tazo 3.375gm in Dex 50 ML IVPB SCH ×3 (08:42→23:10)
[2015-06-17] MEDS: Potassium Chloride 20 mEq/15 ml LIQ UD NG SCH (10:50)
--- NOTE | 2015-06-17 13:34 | CP.PCM.PN ---
Subjective - Subjective Subjective: Medical Attending Note: Patient seen and examined by. Patient unresponsive to painful stimuli. Patient intubated. Unable to obtain ROS. Patient febrile. Patient s/p cardiac arrest likely with anoxic brain injury. Objective - Vital Signs/Intake and Output Vital Signs (last 24 hours): Vital Signs - 24 hr 06/16/15 06/16/15 06/16/15 14:00 15:00 16:00 Temperature 101 F H Pulse Rate 79 80 86 Respiratory 30 H 30 H 33 H Rate Blood Pressure 129/84 129/85 119/62 O2 Sat by Pulse 99 99 97 Oximetry 06/16/15 06/16/15 06/16/15 17:00 18:00 19:00 Temperature 100.7 F H 99.7 F H Pulse Rate 80 70 70 Respiratory 29 H 28 H 24 Rate Blood Pressure 128/91 H 120/86 123/82 O2 Sat by Pulse 98 100 100 Oximetry 06/16/15 06/16/15 06/16/15 20:00 21:00 22:00 Temperature 99.5 F Pulse Rate 67 70 66 Respiratory 20 22 25 H Rate Blood Pressure 122/83 129/82 124/82 O2 Sat by Pulse 100 100 100 Oximetry 06/16/15 06/17/15 06/17/15 23:00 00:00 01:00 Temperature 98.8 F Pulse Rate 67 68 69 Respiratory 26 H 26 H 24 Rate Blood Pressure 135/89 133/91 H 133/86 O2 Sat by Pulse 100 100 100 Oximetry 06/17/15 06/17/15 06/17/15 02:00 03:00 04:00 Temperature 100 F H Pulse Rate 69 70 77 Respiratory 25 H 24 24 Rate Blood Pressure 131/88 131/87 135/90 O2 Sat by Pulse 100 100 100 Oximetry 06/17/15 06/17/15 06/17/15 05:00 06:00 07:00 Temperature Pulse Rate 77 81 80 Respiratory 25 H 24 25 H Rate Blood Pressure 149/87 141/88 142/88 O2 Sat by Pulse 99 100 100 Oximetry 06/17/15 06/17/15 06/17/15 08:00 09:00 10:00 Temperature 101.1 F H Pulse Rate 81 81 81 Respiratory 24 24 23 Rate Blood Pressure 142/88 144/87 142/81 O2 Sat by Pulse 100 100 100 Oximetry 06/17/15 06/17/15 06/17/15 10:53 11:00 12:00 Temperature 99.7 F H Pulse Rate 79 78 Respiratory 25 H 25 H Rate Blood Pressure 146/87 146/87 141/88 O2 Sat by Pulse 100 100 Oximetry 06/17/15 13:00 Temperature Pulse Rate 67 Respiratory 23 Rate Blood Pressure 129/79 O2 Sat by Pulse 100 Oximetry Intake and Output (last 12 hours): Intake & Output 06/16/15 06/17/15 06/17/15 18:59 06:59 18:59 Intake Total 2027.5 1965 1290.0 Output Total 635 1085 515 Balance 1392.5 880 775.0 Intake: Intake, IV Amount 1562.5 1650 1045.0 Left Forearm 1350 1650 875 L FA #18 212.5 170.0 Tube Feeding 280 315 245 Other 185 Output: Urine 635 1085 515 Urethral (Yoo) 635 1085 515 - Medications Medications: Current Medications Amiodarone HCl (Cordarone) 200 mg PO DAILY [facility] Last Admin: 06/17/15 10:49 Dose: 200 mg Aspirin (Aspirin) 325 mg PO DAILY [facility] Last Admin: 06/17/15 10:49 Dose: 325 mg Atenolol (Tenormin) 12.5 mg PO DAILY [facility] Last Admin: 06/17/15 10:52 Dose: 12.5 mg Clopidogrel Bisulfate (Plavix) 75 mg PO DAILY [facility] Last Admin: 06/17/15 10:50 Dose: 75 mg Enalapril Maleate (Vasotec) 2.5 mg PO DAILY [facility] Last Admin: 06/17/15 10:53 Dose: 2.5 mg Famotidine (Pepcid) 20 mg IVP Q12 [facility] Last Admin: 06/17/15 10:49 Dose: 20 mg Fosphenytoin Sodium 100 mg/ (Dextrose) 52 mls @ 100 mls/hr IV Q8H [facility] Last Admin: 06/17/15 06:27 Dose: 100 mls/hr Piperacillin Sod/Tazobactam Sod (Zosyn 3.375 Gm Iv Premix) 50 mls @ 100 mls/hr IVPB Q8H [facility] Last Admin: 06/17/15 08:42 Dose: 100 mls/hr Sodium Chloride (Sodium Chloride 0.9%) 1,000 mls @ 125 mls/hr IV .Q8H [facility] Last Admin: 06/17/15 11:16 Dose: 125 mls/hr Vancomycin HCl 750 mg/ Sodium (Chloride) 250 mls @ 166.6 mls/hr IVPB Q24H [facility] Last Admin: 06/16/15 16:19 Dose: 166.6 mls/hr Potassium Phosphate 15 mmole/ (Dextrose) 255 mls @ 42.5 mls/hr IVPB ONCE ONE Stop: 06/17/15 14:39 Last Admin: 06/17/15 09:40 Dose: 42.5 mls/hr Potassium Chloride (Potassium Chloride Oral Soln) 40 meq NG DAILY [facility] Last Admin: 06/17/15 10:50 Dose: 40 meq - Labs Labs (last 24 hours): Laboratory Results - last 24 hr 06/17/15 06/17/15 05:32 07:18 WBC 11.2 H RBC 3.81 L Hgb 11.7 L Hct 35.2 MCV 92.5 MCH 30.7 MCHC 33.2 RDW 14.2 Plt Count 150 MPV 8.8 Neut % (Auto) 85.3 H Lymph % (Auto) 7.3 L [place] % (Auto) 7.1 Eos % (Auto) 0.1 Baso % (Auto) 0.2 Neut # 9.5 H Lymph # 0.8 L [place] # 0.8 Eos # 0.0 Baso # 0.0 Neutrophils % (Manual) 86 H Band Neutrophils % 1 H Lymphocytes % (Manual) 9 L Monocytes % (Manual) 4 Platelet Estimate Normal Anisocytosis (manual) Slight pCO2 27.0 L pO2 130.0 H HCO3 23.1 ABG pH 7.540 H ABG Total CO2 23.9 ABG O2 Saturation 99.0 ABG Base Excess 1.5 A-a O2 Difference 121.0 Mechanical Rate 16.000 FiO2 40.000 Tidal Volume 450.000 Sodium 136 Potassium 3.5 L Chloride 104 Carbon Dioxide 23 Anion Gap 13 BUN 18 Creatinine 1.0 Est GFR ( Amer) > 60 Est GFR (Non-Af Amer) > 60 Random Glucose 115 H Calcium 7.7 L Phosphorus 1.6 L Magnesium 2.1 Total Bilirubin 0.7 AST 714 H D ALT 1331 H Alkaline Phosphatase 98 Total Protein 6.1 L Albumin 2.9 L Globulin 3.2 Albumin/Globulin Ratio 0.9 L - Constitutional Appears: No Acute Distress, Other (intubated) - ENT Exam ENT Exam: Mucous Membranes Moist - Respiratory Exam Respiratory Exam: absent: Rales, Wheezes Additional comments: mechanical vent sounds heard throughout, coarse breath sounds - Cardiovascular Exam Cardiovascular Exam: REGULAR RHYTHM, +S1, +S2. absent: Diastolic murmur, Gallop , Rubs, Systolic Murmur - GI/Abdominal Exam GI & Abdominal Exam: Normal Bowel Sounds, Soft. absent: Distended - Extremities Exam Extremities exam: pedal pulses present Additional comments: no c/c/e appreciated - Neurological Exam Neurological exam: absent: Alert Additional comments: patient intubated, unresponsive to painful stimuli - Skin Skin Exam: Dry, Warm Assessment/Plan (1) Cardiac arrest Current Visit: Yes Status: Acute Comment: S/P V-Tach arrest Continue Amiodarone 200mg daily Cont ASA 325 mg po daily Cont Plavix 75 mg po daily Cont Enalapril 2.5 mg po daily Cont atenolol 12.5mg daily Monitor (2) Respiratory failure Current Visit: Yes Status: Acute Comment: patient intubated unresponsive to painful stimuli Vent settings as per ICU (3) Anoxic encephalopathy Current Visit: Yes Status: Acute Comment: Most likely due to cardiac arrest Head CT with no acute hemorrhage (please see official read) Patient intubated Unresponsive to painful stimuli Continue Neuro checks Palliative care on case (4) STEMI (ST elevation myocardial infarction) Current Visit: Yes Status: Acute Comment: s/p cath with occluded RCA and left main Continue ASA 325mg PO daily Cont Plavix 75mg PO daily Cont atenolol 12.5mg pO daily Cont Vasotec 2.5mg PO daily (5) Bronchopneumonia Current Visit: Yes Status: Acute Comment: Cont Zosyn and vanco Blood cultures 06/14/15: neg x 48 hours Patient febrile monitor (6) Laceration of head Current Visit: Yes Status: Acute Comment: s/p sutures, wound care monitor (7) Seizures Current Visit: Yes Status: Acute Comment: Dr. Garcia on case-help appreciated likely secondary to anoxic injury Cont Fosphenytoin 100mg IVPB q8hrs Monitor (8) Prophylactic measure Current Visit: Yes Status: Acute Comment: Pepcid 20 mg IVP q12 SCD's Plavix - Date & Time Date: 06/17/15 Time: 13:34 Attending/Attestation - Attestation I have personally seen and examined this patient.: Yes I have fully participated in the care of the patient.: Yes I have reviewed all pertinent clinical information: Yes
--- NOTE | 2015-06-17 13:58 | CP.CCUPN ---
CCU Subjective - Physician Review Subjective (Free Text): 06/16/15 11:40 64 Y/O M S/P Cardiac arrest Patient remains unresponsive to painful stimuli, orally intubated on vent support 06/17/15 13:55 Pt seen and examined. Remains on vent support, no response to stimuli febrile CCU Objective - Vital Signs / Intake & Output Vital Signs (Last 4 hours): Vital Signs Temp Pulse Resp BP Pulse Ox 06/17/15 13:00 67 23 129/79 100 06/17/15 12:00 99.7 F H 78 25 H 141/88 100 06/17/15 11:00 79 25 H 146/87 100 06/17/15 10:53 146/87 06/17/15 10:00 81 23 142/81 100 Intake and Output (Last 8hrs): Intake & Output 06/16/15 06/17/15 06/17/15 22:59 06:59 14:59 Intake Total 1250 1310 1290.0 Output Total 485 800 515 Balance 765 510 775.0 Intake: Intake, IV Amount 975 1100 1045.0 Left Forearm 975 1100 875 L FA #18 170.0 Tube Feeding 225 210 245 Other 50 Output: Urine 485 800 515 Urethral (Yoo) 485 800 515 - Physical Exam Head: Positive for: Normocephalic, Other (Laceration of head) Pupils: Positive for: Sluggish Extroacular Muscles: Positive for: EOMI Conjunctiva: Positive for: Normal. Negative for: Injected, Icteric Mouth: Positive for: Moist Mucous Membranes Neck: Positive for: Trachea Midline. Negative for: JVD, Lymphadenopathy Respiratory/Chest: Positive for: Rhonchi. Negative for: Respiratory Distress, Accessory Muscle Use Cardiovascular: Positive for: Regular Rate and Rhythm, Normal S1, S2. Negative for: Murmurs Abdomen: Positive for: Normal Bowel Sounds. Negative for: Tenderness, Distention - Medications Active Medications: Active Medications Generic Name Dose Route Start Last Admin Trade Name Freq PRN Reason Stop Dose Admin Amiodarone HCl 200 mg 06/15/15 10:00 06/17/15 10:49 Cordarone PO 200 mg DAILY [facility] Administration Aspirin 325 mg 06/14/15 10:00 06/17/15 10:49 Aspirin PO 325 mg DAILY [facility] Administration Atenolol 12.5 mg 06/15/15 10:00 06/17/15 10:52 Tenormin PO 12.5 mg DAILY [facility] Administration Clopidogrel Bisulfate 75 mg 06/14/15 10:00 06/17/15 10:50 Plavix PO 75 mg DAILY [facility] Administration Enalapril Maleate 2.5 mg 06/14/15 10:00 06/17/15 10:53 Vasotec PO 2.5 mg DAILY [facility] Administration Famotidine 20 mg 06/14/15 00:45 06/17/15 10:49 Pepcid IVP 20 mg Q12 [facility] Administration Fosphenytoin Sodium 100 mg/ 52 mls @ 100 mls/hr 06/14/15 06:45 06/17/15 06:27 Dextrose IV 100 mls/hr Q8H [facility] Administration Piperacillin Sod/Tazobactam Sod 50 mls @ 100 mls/hr 06/14/15 16:00 06/17/15 08: 42 Zosyn 3.375 Gm Iv Premix IVPB 100 mls/hr Q8H [facility] Administration Sodium Chloride 1,000 mls @ 125 mls/hr 06/14/15 14:45 06/17/15 11:16 Sodium Chloride 0.9% IV 125 mls/hr .Q8H [facility] Administration Vancomycin HCl 750 mg/ Sodium 250 mls @ 166.6 mls/hr 06/14/15 16:00 06/16/15 16 :19 Chloride IVPB 166.6 mls/hr Q24H [facility] Administration Potassium Phosphate 15 mmole/ 255 mls @ 42.5 mls/hr 06/17/15 08:40 06/17/15 09: 40 Dextrose IVPB 06/17/15 14:39 42.5 mls/hr ONCE ONE Administration Potassium Chloride 40 meq 06/16/15 10:00 06/17/15 10:50 Potassium Chloride Oral Soln NG 40 meq DAILY [facility] Administration - Patient Studies Lab Studies: Microbiology Studies 06/14/15 14:55 Blood Culture - Preliminary Blood NO GROWTH AFTER 48 HOURS 06/14/15 15:20 Blood Culture - Preliminary Blood NO GROWTH AFTER 48 HOURS Lab Studies 06/17/15 06/17/15 Range/Units 07:18 05:32 WBC 11.2 H (4.8-10.8) K/uL RBC 3.81 L (4.40-5.90) Mil/uL Hgb 11.7 L (12.0-18.0) g/dL Hct 35.2 (35.0-51.0) % MCV 92.5 (80.0-94.0) fL MCH 30.7 (27.0-31.0) pg MCHC 33.2 (33.0-37.0) g/dL RDW 14.2 (11.5-14.5) % Plt Count 150 (130-400) K/uL MPV 8.8 (7.2-11.7) fL Neut % (Auto) 85.3 H (50.0-75.0) % Lymph % (Auto) 7.3 L (20.0-40.0) % [place] % (Auto) 7.1 (0.0-10.0) % Eos % (Auto) 0.1 (0.0-4.0) % Baso % (Auto) 0.2 (0.0-2.0) % Neut # 9.5 H (1.8-7.0) K/uL Lymph # 0.8 L (1.0-4.3) K/uL [place] # 0.8 (0.0-0.8) K/uL Eos # 0.0 (0.0-0.7) K/uL Baso # 0.0 (0.0-0.2) K/uL Neutrophils % (Manual) 86 H (50-75) % Band Neutrophils % 1 H (0-0) % Lymphocytes % (Manual) 9 L (20-40) % Monocytes % (Manual) 4 (0-10) % Platelet Estimate Normal (NORMAL) Anisocytosis (manual) Slight pCO2 27.0 L (35.0-45.0) mm/Hg pO2 130.0 H (80.0-90.0) mm/Hg HCO3 23.1 (22.0-26.0) mmol/L ABG pH 7.540 H (7.350-7.450) ABG Total CO2 23.9 mmol/L ABG O2 Saturation 99.0 % ABG Base Excess 1.5 mmol/L A-a O2 Difference 121.0 mm/Hg Mechanical Rate 16.000 FiO2 40.000 % Tidal Volume 450.000 Sodium 136 (132-148) mmol/L Potassium 3.5 L (3.6-5.0) mmol/L Chloride 104 (98-107) mmol/L Carbon Dioxide 23 (22-30) mmol/L Anion Gap 13 (10-20) BUN 18 (9-20) mg/dL Creatinine 1.0 (0.8-1.5) mg/dL Est GFR ( Amer) > 60 Est GFR (Non-Af Amer) > 60 Random Glucose 115 H (75-110) mg/dL Calcium 7.7 L (8.4-10.2) mg/dL Phosphorus 1.6 L (2.5-4.5) mg/dL Magnesium 2.1 (1.6-2.3) mg/dL Total Bilirubin 0.7 (0.2-1.3) mg/dL AST 714 H D (17-59) U/L ALT 1331 H (21-72) U/L Alkaline Phosphatase 98 (38-126) U/L Total Protein 6.1 L (6.3-8.2) g/dL Albumin 2.9 L (3.5-5.0) g/dL Globulin 3.2 (2.2-3.9) gm/dL Albumin/Globulin Ratio 0.9 L (1.0-2.1) Laboratory Results - last 24 hr 06/17/15 06/17/15 05:32 07:18 WBC 11.2 H RBC 3.81 L Hgb 11.7 L Hct 35.2 MCV 92.5 MCH 30.7 MCHC 33.2 RDW 14.2 Plt Count 150 MPV 8.8 Neut % (Auto) 85.3 H Lymph % (Auto) 7.3 L [place] % (Auto) 7.1 Eos % (Auto) 0.1 Baso % (Auto) 0.2 Neut # 9.5 H Lymph # 0.8 L [place] # 0.8 Eos # 0.0 Baso # 0.0 Neutrophils % (Manual) 86 H Band Neutrophils % 1 H Lymphocytes % (Manual) 9 L Monocytes % (Manual) 4 Platelet Estimate Normal Anisocytosis (manual) Slight pCO2 27.0 L pO2 130.0 H HCO3 23.1 ABG pH 7.540 H ABG Total CO2 23.9 ABG O2 Saturation 99.0 ABG Base Excess 1.5 A-a O2 Difference 121.0 Mechanical Rate 16.000 FiO2 40.000 Tidal Volume 450.000 Sodium 136 Potassium 3.5 L Chloride 104 Carbon Dioxide 23 Anion Gap 13 BUN 18 Creatinine 1.0 Est GFR ( Amer) > 60 Est GFR (Non-Af Amer) > 60 Random Glucose 115 H Calcium 7.7 L Phosphorus 1.6 L Magnesium 2.1 Total Bilirubin 0.7 AST 714 H D ALT 1331 H Alkaline Phosphatase 98 Total Protein 6.1 L Albumin 2.9 L Globulin 3.2 Albumin/Globulin Ratio 0.9 L EKG/Cardiology Studies: Cardiology / EKG Studies 06/13/15 20:54 ELECTROCARDIOGRAM Stat Comment: repeat Mode Of Transportation: BED Reason For Exam: cp bed 6 Critical Care Progress Note - Ventilator Checklist Head of Bed 30 Degrees: Yes PUD Prophalyxis: Yes DVT Prophylaxis: Yes Assessment/Plan (1) Anoxic encephalopathy Current Visit: Yes Status: Acute Comment: Most likely due to cardiac arrest Patient intubated Unresponsive to painful stimuli Palliative care on case (2) Bronchopneumonia Current Visit: Yes Status: Acute Comment: Cont Zosyn and vanco Patient febrile monitor (3) Cardiac arrest Current Visit: Yes Status: Acute Comment: S/P V-Tach arrest Continue Amiodarone 200mg daily Cont ASA 325 mg po daily Cont Plavix 75 mg po daily Cont Enalapril 2.5 mg po daily Cont atenolol 12.5mg daily Monitor (4) Respiratory failure Current Visit: Yes Status: Acute Comment: patient intubated unresponsive to painful stimuli Vent settings as per ICU (5) STEMI (ST elevation myocardial infarction) Current Visit: Yes Status: Acute Comment: s/p cath with occluded RCA and left main Continue ASA 325mg PO daily Cont Plavix 75mg PO daily Cont atenolol 12.5mg pO daily Cont Vasotec 2.5mg PO daily
--- NOTE | 2015-06-17 14:03 | RAD ---
PROCEDURE: CHEST RADIOGRAPH, 1 VIEW HISTORY: ett check COMPARISON: 06/16/2015 FINDINGS: LUNGS: Clear. PLEURA: No pneumothorax or pleural fluid seen. CARDIOVASCULAR: ET tube and NG tube unchanged in position. OSSEOUS STRUCTURES: No significant abnormalities. VISUALIZED UPPER ABDOMEN: Normal. OTHER FINDINGS: None. IMPRESSION: No interval change. No infiltrate.
--- NOTE | 2015-06-17 14:32 | PN ---
DATE: 06/17/2015 FOLLOWUP The patient is still deeply comatose. PHYSICAL EXAMINATION: VITAL SIGNS: Blood pressure 129/79, heart rate 67, temperature 99.7, respirations 23. CHEST: Clear. HEART: S1, S2 regular. EXTREMITIES: No edema. LABORATORIES: CBC: WBC is 11.2, hemoglobin 11.7, hematocrit 35.2, platelet count 150,000. SMA-7: Sodium 136, potassium 3.5, chloride 104, CO2 23, glucose 115, BUN 18, creatinine 1.0. Chest x-ray re vealed mild cardiomegaly with mild mediastinal widening, most likely due to unfolding of the aorta. ASSESSMENT: 1. Status post acute myocardial infarction with percutaneous coronary intervention to the right [place] artery with known ostial left main disease. 2. Anoxic encephalopathy. 3. Seizure. RECOMMENDATIONS: Continue current aspirin, amiodarone, Plavix, Tenormin, Vasotec and intravenous Zos yn. Continue current intravenous hydantoin. Ashu Hamlin MD cc: [id number] TT: 06/17/2015 14:32:14 jn
[2015-06-18 05:59] LABS: ARTERIAL BLOOD GAS HCO3 23.1 mmol/L (22.0-26.0); ARTERIAL BLOOD GAS TCO2 23.9 mmol/L
[2015-06-18] MEDS: Fosphenytoin 100 MG in Dextrose 5% In Water 50 ML IV SCH ×3 (06:12→22:02)
[2015-06-18] MEDS: Sodium Chloride 0.9% 1,000 ML IV SCH ×5 (06:17→23:23)
[2015-06-18 06:22] LABS: BASO % 0.2 % (0.0-2.0); EOS # 0.1 K/uL (0.0-0.7); EOS % 0.4 % (0.0-4.0); HEMOGLOBIN 10.9 g/dL (12.0-18.0); LYMPH # 1.5 K/uL (1.0-4.3); LYMPH % 11.4 % (20.0-40.0); MEAN CELL VOLUME 92.3 fL (80.0-94.0); MEAN CORPUSCULAR HEMOGLOBIN 30.1 pg (27.0-31.0); MEAN CORPUSCULAR HGB CONC 32.6 g/dL (33.0-37.0); MEAN PLATELET VOLUME 9.2 fL (7.2-11.7); MONO # 1.5 K/uL (0.0-0.8); MONO % 11.4 % (0.0-10.0); NEUT % 76.6 % (50.0-75.0); NRBC % 0.1 % (0.0-0.0); RBC 3.62 Mil/uL (4.40-5.90); RED CELL DISTRIBUTION WIDTH 13.9 % (11.5-14.5)
[2015-06-18 06:43] LABS: ALBUMIN 2.7 g/dL (3.5-5.0)
[2015-06-18 06:45] LABS: GFR NON-AFRICAN AMERICAN > 60
[2015-06-18 06:46] LABS: ALB/GLOB RATIO 0.8 (1.0-2.1); ALT/SGPT 882 U/L (21-72); AST/SGOT 342 U/L (17-59); BLOOD UREA NITROGEN 17 mg/dL (9-20); CALCIUM 7.5 mg/dL (8.4-10.2)
[2015-06-18] MEDS: Piperacill/Tazo 3.375gm in Dex 50 ML IVPB SCH ×3 (08:19→23:22)
--- NOTE | 2015-06-18 08:43 | RAD ---
PROCEDURE: CHEST RADIOGRAPH, 1 VIEW HISTORY: ett check COMPARISON: 06/17/2015 FINDINGS: LUNGS: Clear. PLEURA: No pneumothorax or pleural fluid seen. CARDIOVASCULAR: Normal heart size. ET tube and NG tube unchanged. OSSEOUS STRUCTURES: No significant abnormalities. VISUALIZED UPPER ABDOMEN: Normal. OTHER FINDINGS: None. IMPRESSION: ET tube and NG tube unchanged. No infiltrate.
--- NOTE | 2015-06-18 09:31 | CP.PCM.PN ---
Subjective - Subjective Subjective: This is my first day seeing patient, I am taking over for a colleague of mine. Patient was seen and examined by me. Also speak with family member as well who after I discussed with them understand that the patient likely has had severe anoxic brain injury. They want to continue full code at this time. He is currently intubated on mechanical ventilation. He is not responding to stimuli on my exam. Reviewed notes. Objective - Vital Signs/Intake and Output Vital Signs (last 24 hours): Vital Signs - 24 hr 06/17/15 06/17/15 06/17/15 10:00 10:53 11:00 Temperature Pulse Rate 81 79 Respiratory 23 25 H Rate Blood Pressure 142/81 146/87 146/87 O2 Sat by Pulse 100 100 Oximetry 06/17/15 06/17/15 06/17/15 12:00 13:00 14:00 Temperature 99.7 F H Pulse Rate 78 67 63 Respiratory 25 H 23 23 Rate Blood Pressure 141/88 129/79 128/71 O2 Sat by Pulse 100 100 100 Oximetry 06/17/15 06/17/15 06/17/15 15:00 16:00 17:00 Temperature 98.7 F Pulse Rate 60 62 68 Respiratory 23 23 25 H Rate Blood Pressure 124/74 123/76 115/77 O2 Sat by Pulse 100 100 100 Oximetry 06/17/15 06/17/15 06/17/15 18:00 19:00 20:00 Temperature 100.7 F H Pulse Rate 61 60 66 Respiratory 25 H 25 H 27 H Rate Blood Pressure 127/77 112/70 125/75 O2 Sat by Pulse 100 100 100 Oximetry 06/17/15 06/17/15 06/17/15 21:00 22:00 23:00 Temperature Pulse Rate 64 61 61 Respiratory 26 H 24 25 H Rate Blood Pressure 134/77 119/73 120/75 O2 Sat by Pulse 100 99 100 Oximetry 06/18/15 06/18/15 06/18/15 00:00 00:59 02:00 Temperature 100.8 F H Pulse Rate 64 66 67 Respiratory 28 H 26 H 23 Rate Blood Pressure 123/77 130/80 137/86 O2 Sat by Pulse 100 100 99 Oximetry 06/18/15 06/18/15 06/18/15 03:00 04:00 05:00 Temperature 98 F Pulse Rate 64 68 66 Respiratory 22 27 H 26 H Rate Blood Pressure 124/82 137/88 142/87 O2 Sat by Pulse 99 99 99 Oximetry 06/18/15 06/18/15 06:00 06:55 Temperature Pulse Rate 69 68 Respiratory 25 H 29 H Rate Blood Pressure 152/89 H 146/87 O2 Sat by Pulse 100 100 Oximetry Intake and Output (last 12 hours): Intake & Output 06/17/15 06/18/15 06/18/15 18:59 06:59 18:59 Intake Total 2070.0 2030 Output Total 815 955 Balance 1255.0 1075 Weight 151 lb 0.266 oz Intake: Intake, IV Amount 1505.0 1575 Left Forearm 1250 1575 L FA #18 255.0 Tube Feeding 385 455 Other 180 Output: Urine 815 955 Urethral (Yoo) 815 955 - Medications Medications: Current Medications Amiodarone HCl (Cordarone) 200 mg PO DAILY [facility] Last Admin: 06/17/15 10:49 Dose: 200 mg Aspirin (Aspirin) 325 mg PO DAILY [facility] Last Admin: 06/17/15 10:49 Dose: 325 mg Atenolol (Tenormin) 12.5 mg PO DAILY [facility] Last Admin: 06/17/15 10:52 Dose: 12.5 mg Clopidogrel Bisulfate (Plavix) 75 mg PO DAILY [facility] Last Admin: 06/17/15 10:50 Dose: 75 mg Enalapril Maleate (Vasotec) 2.5 mg PO DAILY [facility] Last Admin: 06/17/15 10:53 Dose: 2.5 mg Famotidine (Pepcid) 20 mg IVP Q12 [facility] Last Admin: 06/17/15 22:15 Dose: 20 mg Fosphenytoin Sodium 100 mg/ (Dextrose) 52 mls @ 100 mls/hr IV Q8H [facility] Last Admin: 06/18/15 06:12 Dose: 100 mls/hr Piperacillin Sod/Tazobactam Sod (Zosyn 3.375 Gm Iv Premix) 50 mls @ 100 mls/hr IVPB Q8H [facility] Last Admin: 06/18/15 08:19 Dose: 100 mls/hr Sodium Chloride (Sodium Chloride 0.9%) 1,000 mls @ 125 mls/hr IV .Q8H [facility] Last Admin: 06/18/15 08:22 Dose: 125 mls/hr Vancomycin HCl 750 mg/ Sodium (Chloride) 250 mls @ 166.6 mls/hr IVPB Q24H [facility] Last Admin: 06/17/15 15:07 Dose: 166.6 mls/hr Potassium Chloride (Potassium Chloride Oral Soln) 40 meq NG DAILY [facility] Last Admin: 06/17/15 10:50 Dose: 40 meq - Labs Labs (last 24 hours): Laboratory Results - last 24 hr 06/18/15 06/18/15 05:39 06:10 WBC 13.0 H RBC 3.62 L Hgb 10.9 L Hct 33.4 L MCV 92.3 MCH 30.1 MCHC 32.6 L RDW 13.9 Plt Count 145 MPV 9.2 Neut % (Auto) 76.6 H Lymph % (Auto) 11.4 L [place] % (Auto) 11.4 H Eos % (Auto) 0.4 Baso % (Auto) 0.2 Neut # 10.0 H Lymph # 1.5 [place] # 1.5 H Eos # 0.1 Baso # 0.0 pCO2 27.0 L pO2 100.0 H HCO3 23.1 ABG pH 7.540 H ABG Total CO2 23.9 ABG O2 Saturation 98.0 ABG Base Excess 1.5 A-a O2 Difference 151.0 Mechanical Rate 16.000 FiO2 40.000 Tidal Volume 450.000 Sodium 132 Potassium 3.8 Chloride 101 Carbon Dioxide 25 Anion Gap 10 BUN 17 Creatinine 0.9 Est GFR ( Amer) > 60 Est GFR (Non-Af Amer) > 60 Random Glucose 130 H Calcium 7.5 L Phosphorus 2.5 Magnesium 2.0 Total Bilirubin 0.6 AST 342 H D ALT 882 H D Alkaline Phosphatase 76 Total Protein 5.9 L Albumin 2.7 L Globulin 3.2 Albumin/Globulin Ratio 0.8 L - Constitutional Appears: No Acute Distress, Older Than Stated Age, Chronically Ill - Respiratory Exam Additional comments: Currently mechanical ventialation - Cardiovascular Exam Cardiovascular Exam: REGULAR RHYTHM - GI/Abdominal Exam GI & Abdominal Exam: Normal Bowel Sounds, Soft - Neurological Exam Neurological exam: Altered Neuro motor strength exam: Left Upper Extremity: 0, Right Upper Extremity: 0, Left Lower Extremity: 0, Right Lower Extremity: 0 Additional comments: Currently not responding to stimuli - Skin Skin Exam: Pallor, Pallor Assessment/Plan (1) Anoxic encephalopathy Current Visit: Yes Status: Acute Comment: 06/18: I had a discussion with family member and they understand that there is likely severe brain damage. They still want full code. Most likely due to cardiac arrest Patient intubated Unresponsive to painful stimuli Palliative care on case (2) STEMI (ST elevation myocardial infarction) Current Visit: Yes Status: Acute Comment: Cardiac cath on 06/13 with occluded RCA and left main Continue ASA 325mg PO daily Cont Plavix 75mg PO daily Cont atenolol 12.5mg pO daily Cont Vasotec 2.5mg PO daily (3) Cardiac arrest Current Visit: Yes Status: Acute Comment: S/P V-Tach arrest Continue Amiodarone 200mg daily Cont ASA 325 mg po daily Cont Plavix 75 mg po daily Cont Enalapril 2.5 mg po daily Cont atenolol 12.5mg daily Monitor (4) Respiratory failure Current Visit: Yes Status: Acute Comment: patient intubated unresponsive to painful stimuli Vent settings as per ICU (5) Seizures Current Visit: Yes Status: Acute Comment: Dr. Garcia on case-help appreciated likely secondary to anoxic injury Cont Fosphenytoin 100mg IVPB q8hrs Monitor (6) Prophylactic measure Current Visit: Yes Status: Acute Comment: Pepcid 20 mg IVP q12 SCD's Plavix
[2015-06-18] MEDS: Potassium Chloride 20 mEq/15 ml LIQ UD NG SCH (10:08)
--- NOTE | 2015-06-18 12:42 | PN ---
DATE: 06/18/2015 TIME OF EVALUATION: 8:20 a.m. NEUROLOGICAL PROBLEM: Anoxic encephalopathy. The patient is examined in the presence of the family members. PHYSICAL EXAMINATION: VITAL SIGNS: 146/87, pulse rate 68, regular; respiratory rate 25-29 on vent, temperature 98 degrees Fahrenheit. The patient is comatose. Eyes are closed. No spontaneous movements noted in all 4 extremities. Pupils are asymmetric, but reactive to light. Gag is impaired. No corneal reflex, no oculocephalic noted at present. Corneal reflexes absent. Plantars are mute. The patient's conjunctivae looked icterus. BLOOD WORKUP: WBC 13.0, hemoglobin 10.9, hematocrit 33.4, platelets 145. Sodium 132, potassium 3.8, chloride 101, bicarbonate 25, BUN 17, creatinine 0.9 , GFR 60, glucose 130, calcium 7.05, AST 342, ALT 882. Albumin 5.9, globulin 2.7. The patient seems to be with hepatic dysfunction associating with a central nervous system illness. The central nervous system due to anoxic insult. This is more than a 72-hour period. The patient does not show any reasonable pathological reflexes, signs suggestive of showing any improvement from neurological point of view. The patient's critical illness were discussed with the family members. They are aware of his critical illness. They would like to do everything that could be possible with medical management. RECOMMENDATIONS: 1. CT of the head for followup evaluation. 2. Serum ammonia level The patient will be followed closely with you. Dennis Garcia MD cc: [id number] TT: 06/18/2015 09:16:30 nn PATRICIA
--- NOTE | 2015-06-18 14:58 | CP.PCM.PN ---
Subjective - Subjective Subjective: 64 yo Fr[place] male, S/P cardiac arrest on 06/13/2015 resulting most likely in anoxic brain injury. Patient is intubated on vent support and with NGT feedings. Patient remains unresponsive to any stimuli. Fever His WBC has increased to 13.0 from 11.0. As per nurse's note, patient had Temp of 100.0 last night. * Consider Tylenol Elixir 650 mg Q 6 hr PRN temp >100.1 * Consider Urine C&S and UA to RO UTI Urinary incontinence Patient is incontinent of bowel and bladder. Yoo catheter Fr# [address] * Would consider removing Yoo cath. as it may increase the risk for UTI * Consider applying Condom catheter for accurate urine collection Dysphagia Patient is unable to respond to any stimuli, gag reflex absent. Nutrition provided via NGT. and daughter visit daily and are hoping for some recovery. They still want everything to be done to keep patient alive. The meaning of artificial nutrition discussed and benefits and burdens of it as well. The daughter was able to clearly articulate understanding that NGT is only short term solution. * Continue nutrition via NGT * Will continue discussion about goals of care Palliative team will continue to provide support in establishing goals of care. Objective - Vital Signs/Intake and Output Vital Signs (last 24 hours): Vital Signs - 24 hr 06/17/15 06/17/15 06/17/15 15:00 16:00 17:00 Temperature 98.7 F Pulse Rate 60 62 68 Respiratory 23 23 25 H Rate Blood Pressure 124/74 123/76 115/77 O2 Sat by Pulse 100 100 100 Oximetry 06/17/15 06/17/15 06/17/15 18:00 19:00 20:00 Temperature 100.7 F H Pulse Rate 61 60 66 Respiratory 25 H 25 H 27 H Rate Blood Pressure 127/77 112/70 125/75 O2 Sat by Pulse 100 100 100 Oximetry 06/17/15 06/17/15 06/17/15 21:00 22:00 23:00 Temperature Pulse Rate 64 61 61 Respiratory 26 H 24 25 H Rate Blood Pressure 134/77 119/73 120/75 O2 Sat by Pulse 100 99 100 Oximetry 06/18/15 06/18/15 06/18/15 00:00 00:59 02:00 Temperature 100.8 F H Pulse Rate 64 66 67 Respiratory 28 H 26 H 23 Rate Blood Pressure 123/77 130/80 137/86 O2 Sat by Pulse 100 100 99 Oximetry 06/18/15 06/18/15 06/18/15 03:00 04:00 05:00 Temperature 98 F Pulse Rate 64 68 66 Respiratory 22 27 H 26 H Rate Blood Pressure 124/82 137/88 142/87 O2 Sat by Pulse 99 99 99 Oximetry 06/18/15 06/18/15 06/18/15 06:00 06:55 08:00 Temperature 100.5 F H Pulse Rate 69 68 66 Respiratory 25 H 29 H 27 H Rate Blood Pressure 152/89 H 146/87 140/80 O2 Sat by Pulse 100 100 100 Oximetry 06/18/15 06/18/15 06/18/15 09:00 10:00 10:07 Temperature Pulse Rate 69 71 Respiratory 21 26 H Rate Blood Pressure 152/85 H 146/88 146/88 O2 Sat by Pulse 100 100 Oximetry 06/18/15 06/18/15 06/18/15 11:00 12:00 13:00 Temperature 99.1 F Pulse Rate 69 59 L 53 L Respiratory 20 20 18 Rate Blood Pressure 124/78 141/63 114/67 O2 Sat by Pulse 100 100 100 Oximetry 06/18/15 14:00 Temperature Pulse Rate 54 L Respiratory 19 Rate Blood Pressure 114/72 O2 Sat by Pulse 100 Oximetry Intake and Output (last 12 hours): Intake & Output 06/17/15 06/18/15 06/18/15 18:59 06:59 18:59 Intake Total 2070.0 2030 1380 Output Total 815 955 780 Balance 1255.0 1075 600 Weight 151 lb 0.266 oz Intake: Intake, IV Amount 1505.0 1575 1025 Left Forearm 1250 1575 925 L FA #18 255.0 100 Oral 100 Tube Feeding 385 455 255 Other 180 Output: Urine 815 955 780 Urethral (Yoo) 815 955 780 - Medications Medications: Current Medications Amiodarone HCl (Cordarone) 200 mg PO DAILY [facility] Last Admin: 06/18/15 10:08 Dose: 200 mg Aspirin (Aspirin) 325 mg PO DAILY [facility] Last Admin: 06/18/15 10:08 Dose: 325 mg Atenolol (Tenormin) 12.5 mg PO DAILY [facility] Last Admin: 06/18/15 10:08 Dose: 12.5 mg Clopidogrel Bisulfate (Plavix) 75 mg PO DAILY [facility] Last Admin: 06/18/15 10:08 Dose: 75 mg Enalapril Maleate (Vasotec) 2.5 mg PO DAILY [facility] Last Admin: 06/18/15 10:07 Dose: 2.5 mg Famotidine (Pepcid) 20 mg PO BID [facility] Fosphenytoin Sodium 100 mg/ (Dextrose) 52 mls @ 100 mls/hr IV Q8H [facility] Last Admin: 06/18/15 13:55 Dose: 100 mls/hr Piperacillin Sod/Tazobactam Sod (Zosyn 3.375 Gm Iv Premix) 50 mls @ 100 mls/hr IVPB Q8H [facility] Last Admin: 06/18/15 08:19 Dose: 100 mls/hr Sodium Chloride (Sodium Chloride 0.9%) 1,000 mls @ 125 mls/hr IV .Q8H [facility] Last Admin: 06/18/15 08:22 Dose: 125 mls/hr Vancomycin HCl 750 mg/ Sodium (Chloride) 250 mls @ 166.6 mls/hr IVPB Q24H [facility] Last Admin: 06/17/15 15:07 Dose: 166.6 mls/hr Potassium Chloride (Potassium Chloride Oral Soln) 40 meq NG DAILY [facility] Last Admin: 06/18/15 10:08 Dose: 40 meq - Labs Labs (last 24 hours): Laboratory Results - last 24 hr 06/18/15 06/18/15 06/18/15 05:39 06:10 09:56 WBC 13.0 H RBC 3.62 L Hgb 10.9 L Hct 33.4 L MCV 92.3 MCH 30.1 MCHC 32.6 L RDW 13.9 Plt Count 145 MPV 9.2 Neut % (Auto) 76.6 H Lymph % (Auto) 11.4 L [place] % (Auto) 11.4 H Eos % (Auto) 0.4 Baso % (Auto) 0.2 Neut # 10.0 H Lymph # 1.5 [place] # 1.5 H Eos # 0.1 Baso # 0.0 pCO2 27.0 L pO2 100.0 H HCO3 23.1 ABG pH 7.540 H ABG Total CO2 23.9 ABG O2 Saturation 98.0 ABG Base Excess 1.5 A-a O2 Difference 151.0 Mechanical Rate 16.000 FiO2 40.000 Tidal Volume 450.000 Sodium 132 Potassium 3.8 Chloride 101 Carbon Dioxide 25 Anion Gap 10 BUN 17 Creatinine 0.9 Est GFR ( Amer) > 60 Est GFR (Non-Af Amer) > 60 Random Glucose 130 H Calcium 7.5 L Phosphorus 2.5 Magnesium 2.0 Total Bilirubin 0.6 AST 342 H D ALT 882 H D Alkaline Phosphatase 76 Ammonia < 9 L Total Protein 5.9 L Albumin 2.7 L Globulin 3.2 Albumin/Globulin Ratio 0.8 L
--- NOTE | 2015-06-18 17:45 | CP.CCUPN ---
<Yesenia Mayer - Last Filed: 06/18/15 17:40> CCU Subjective - Physician Review Events Since Last Encounter (Free Text): Patient seen and examined at bedside. Unresponsive, intubated. No acute overnight events per nursing. f/u blood CX f/u [facility] Neuro dr. Garcia on board. Cardio dr. Andre on board. Palliative consult was ordered. Surgery was consulted for PEG and Trach eval. Subjective (Free Text): CC: Code Heart Patient is a 64 yo M with unknown pmhx who was found unresponsive in driveway by EMS after fall that was witnessed by family. In the field, CPR was given, patient was in asystole and was shocked 3 times, given 1 dose of Epinephrine and started on an Amiodarone drip. In the ED, the patient was found to be in V Fib and was shocked once. He then converted to sinus tachy and given 5000 U of heparin and Versed. He was intubated and an NGT was placed. Afterwards, he was given 600 mg of Plavis and 325 mg of ASA. He was found to have a large gash on the R side of his head so he was taken for a Head CT, which showed on acute intracranial hemorrhage and then to the test lab technician. From Patient's History obtained by Integration Developer from family: PMHx: unknown type of "heart trouble" that was diagnosed in [place] 15 years ago. no rx or therapy given at that time. He has not seen a physician in 15 years PSHx: Denied Soc: denied EtOH and tobacco Allergy: NKDA meds: none CCU Objective - Vital Signs / Intake & Output Vital Signs (Last 4 hours): Vital Signs Temp Pulse Resp BP Pulse Ox 06/18/15 16:00 99.9 F H 53 L 26 H 102/62 100 06/18/15 15:00 55 L 18 99/69 L 100 06/18/15 14:00 54 L 19 114/72 100 Intake and Output (Last 8hrs): Intake & Output 06/18/15 06/18/15 06/18/15 06:59 14:59 22:59 Intake Total 1390 1380 380 Output Total 650 780 250 Balance 740 600 130 Intake: Intake, IV Amount 1075 1025 300 Left Forearm 1075 925 300 L FA #18 100 Oral 100 Tube Feeding 315 255 80 Output: Urine 650 780 250 Urethral (Yoo) 650 780 250 - Physical Exam Head: Positive for: Normocephalic, Other (Laceration of head) Pupils: Positive for: Sluggish Extroacular Muscles: Positive for: EOMI Conjunctiva: Positive for: Normal. Negative for: Injected, Icteric Mouth: Positive for: Moist Mucous Membranes Neck: Positive for: Trachea Midline. Negative for: JVD, Lymphadenopathy Respiratory/Chest: Positive for: Rhonchi. Negative for: Respiratory Distress, Accessory Muscle Use Cardiovascular: Positive for: Regular Rate and Rhythm, Normal S1, S2. Negative for: Murmurs Abdomen: Positive for: Normal Bowel Sounds. Negative for: Tenderness, Distention Neurological: Positive for: Other (unresponsive) - Medications Active Medications: Active Medications Generic Name Dose Route Start Last Admin Trade Name Freq PRN Reason Stop Dose Admin Amiodarone HCl 200 mg 06/15/15 10:00 06/18/15 10:08 Cordarone PO 200 mg DAILY JOO Administration Aspirin 325 mg 06/14/15 10:00 06/18/15 10:08 Aspirin PO 325 mg DAILY JOO Administration Atenolol 12.5 mg 06/15/15 10:00 06/18/15 10:08 Tenormin PO 12.5 mg DAILY JOO Administration Clopidogrel Bisulfate 75 mg 06/14/15 10:00 06/18/15 10:08 Plavix PO 75 mg DAILY JOO Administration Enalapril Maleate 2.5 mg 06/14/15 10:00 06/18/15 10:07 Vasotec PO 2.5 mg DAILY JOO Administration Famotidine 20 mg 06/18/15 18:00 Pepcid PO BID JOO Fosphenytoin Sodium 100 mg/ 52 mls @ 100 mls/hr 06/14/15 06:45 06/18/15 13:55 Dextrose IV 100 mls/hr Q8H JOO Administration Piperacillin Sod/Tazobactam Sod 50 mls @ 100 mls/hr 06/14/15 16:00 06/18/15 15: 40 Zosyn 3.375 Gm Iv Premix IVPB 100 mls/hr Q8H JOO Administration Sodium Chloride 1,000 mls @ 125 mls/hr 06/14/15 14:45 06/18/15 16:10 Sodium Chloride 0.9% IV Not Given .Q8H JOO Vancomycin HCl 750 mg/ Sodium 250 mls @ 166.6 mls/hr 06/14/15 16:00 06/18/15 16 :08 Chloride IVPB 166.6 mls/hr Q24H JOO Administration Potassium Chloride 40 meq 06/16/15 10:00 06/18/15 10:08 Potassium Chloride Oral Soln NG 40 meq DAILY JOO Administration - Patient Studies Lab Studies: Microbiology Studies 06/14/15 14:55 Blood Culture - Preliminary Blood NO GROWTH AFTER 3 DAYS 06/14/15 15:20 Blood Culture - Preliminary Blood NO GROWTH AFTER 3 DAYS Lab Studies 06/18/15 06/18/15 06/18/15 Range/Units 14:10 09:56 06:10 WBC 13.0 H (4.8-10.8) K/uL RBC 3.62 L (4.40-5.90) Mil/uL Hgb 10.9 L (12.0-18.0) g/dL Hct 33.4 L (35.0-51.0) % MCV 92.3 (80.0-94.0) fL MCH 30.1 (27.0-31.0) pg MCHC 32.6 L (33.0-37.0) g/dL RDW 13.9 (11.5-14.5) % Plt Count 145 (130-400) K/uL MPV 9.2 (7.2-11.7) fL Neut % (Auto) 76.6 H (50.0-75.0) % Lymph % (Auto) 11.4 L (20.0-40.0) % [place] % (Auto) 11.4 H (0.0-10.0) % Eos % (Auto) 0.4 (0.0-4.0) % Baso % (Auto) 0.2 (0.0-2.0) % Neut # 10.0 H (1.8-7.0) K/uL Lymph # 1.5 (1.0-4.3) K/uL [place] # 1.5 H (0.0-0.8) K/uL Eos # 0.1 (0.0-0.7) K/uL Baso # 0.0 (0.0-0.2) K/uL pCO2 (35.0-45.0) mm/Hg pO2 (80.0-90.0) mm/Hg HCO3 (22.0-26.0) mmol/L ABG pH (7.350-7.450) ABG Total CO2 mmol/L ABG O2 Saturation % ABG Base Excess mmol/L A-a O2 Difference mm/Hg Mechanical Rate FiO2 % Tidal Volume Sodium 132 (132-148) mmol/L Potassium 3.8 (3.6-5.0) mmol/L Chloride 101 (98-107) mmol/L Carbon Dioxide 25 (22-30) mmol/L Anion Gap 10 (10-20) BUN 17 (9-20) mg/dL Creatinine 0.9 (0.8-1.5) mg/dL Est GFR ( Amer) > 60 Est GFR (Non-Af Amer) > 60 Random Glucose 130 H (75-110) mg/dL Calcium 7.5 L (8.4-10.2) mg/dL Phosphorus 2.5 (2.5-4.5) mg/dL Magnesium 2.0 (1.6-2.3) mg/dL Total Bilirubin 0.6 (0.2-1.3) mg/dL AST 342 H D (17-59) U/L ALT 882 H D (21-72) U/L Alkaline Phosphatase 76 (38-126) U/L Ammonia < 9 L (9-33) umol/L Total Protein 5.9 L (6.3-8.2) g/dL Albumin 2.7 L (3.5-5.0) g/dL Globulin 3.2 (2.2-3.9) gm/dL Albumin/Globulin Ratio 0.8 L (1.0-2.1) Vancomycin Trough < 5.0 L (5.0-10.0) ug/mL 06/18/15 Range/Units 05:39 WBC (4.8-10.8) K/uL RBC (4.40-5.90) Mil/uL Hgb (12.0-18.0) g/dL Hct (35.0-51.0) % MCV (80.0-94.0) fL MCH (27.0-31.0) pg MCHC (33.0-37.0) g/dL RDW (11.5-14.5) % Plt Count (130-400) K/uL MPV (7.2-11.7) fL Neut % (Auto) (50.0-75.0) % Lymph % (Auto) (20.0-40.0) % [place] % (Auto) (0.0-10.0) % Eos % (Auto) (0.0-4.0) % Baso % (Auto) (0.0-2.0) % Neut # (1.8-7.0) K/uL Lymph # (1.0-4.3) K/uL [place] # (0.0-0.8) K/uL Eos # (0.0-0.7) K/uL Baso # (0.0-0.2) K/uL pCO2 27.0 L (35.0-45.0) mm/Hg pO2 100.0 H (80.0-90.0) mm/Hg HCO3 23.1 (22.0-26.0) mmol/L ABG pH 7.540 H (7.350-7.450) ABG Total CO2 23.9 mmol/L ABG O2 Saturation 98.0 % ABG Base Excess 1.5 mmol/L A-a O2 Difference 151.0 mm/Hg Mechanical Rate 16.000 FiO2 40.000 % Tidal Volume 450.000 Sodium (132-148) mmol/L Potassium (3.6-5.0) mmol/L Chloride (98-107) mmol/L Carbon Dioxide (22-30) mmol/L Anion Gap (10-20) BUN (9-20) mg/dL Creatinine (0.8-1.5) mg/dL Est GFR ( Amer) Est GFR (Non-Af Amer) Random Glucose (75-110) mg/dL Calcium (8.4-10.2) mg/dL Phosphorus (2.5-4.5) mg/dL Magnesium (1.6-2.3) mg/dL Total Bilirubin (0.2-1.3) mg/dL AST (17-59) U/L ALT (21-72) U/L Alkaline Phosphatase (38-126) U/L Ammonia (9-33) umol/L Total Protein (6.3-8.2) g/dL Albumin (3.5-5.0) g/dL Globulin (2.2-3.9) gm/dL Albumin/Globulin Ratio (1.0-2.1) Vancomycin Trough (5.0-10.0) ug/mL Laboratory Results - last 24 hr 06/18/15 06/18/15 06/18/15 05:39 06:10 09:56 WBC 13.0 H RBC 3.62 L Hgb 10.9 L Hct 33.4 L MCV 92.3 MCH 30.1 MCHC 32.6 L RDW 13.9 Plt Count 145 MPV 9.2 Neut % (Auto) 76.6 H Lymph % (Auto) 11.4 L [place] % (Auto) 11.4 H Eos % (Auto) 0.4 Baso % (Auto) 0.2 Neut # 10.0 H Lymph # 1.5 [place] # 1.5 H Eos # 0.1 Baso # 0.0 pCO2 27.0 L pO2 100.0 H HCO3 23.1 ABG pH 7.540 H ABG Total CO2 23.9 ABG O2 Saturation 98.0 ABG Base Excess 1.5 A-a O2 Difference 151.0 Mechanical Rate 16.000 FiO2 40.000 Tidal Volume 450.000 Sodium 132 Potassium 3.8 Chloride 101 Carbon Dioxide 25 Anion Gap 10 BUN 17 Creatinine 0.9 Est GFR ( Amer) > 60 Est GFR (Non-Af Amer) > 60 Random Glucose 130 H Calcium 7.5 L Phosphorus 2.5 Magnesium 2.0 Total Bilirubin 0.6 AST 342 H D ALT 882 H D Alkaline Phosphatase 76 Ammonia < 9 L Total Protein 5.9 L Albumin 2.7 L Globulin 3.2 Albumin/Globulin Ratio 0.8 L Vancomycin Trough 06/18/15 14:10 WBC RBC Hgb Hct MCV MCH MCHC RDW Plt Count MPV Neut % (Auto) Lymph % (Auto) [place] % (Auto) Eos % (Auto) Baso % (Auto) Neut # Lymph # [place] # Eos # Baso # pCO2 pO2 HCO3 ABG pH ABG Total CO2 ABG O2 Saturation ABG Base Excess A-a O2 Difference Mechanical Rate FiO2 Tidal Volume Sodium Potassium Chloride Carbon Dioxide Anion Gap BUN Creatinine Est GFR ( Amer) Est GFR (Non-Af Amer) Random Glucose Calcium Phosphorus Magnesium Total Bilirubin AST ALT Alkaline Phosphatase Ammonia Total Protein Albumin Globulin Albumin/Globulin Ratio Vancomycin Trough < 5.0 L EKG/Cardiology Studies: Cardiology / EKG Studies 06/13/15 20:54 ELECTROCARDIOGRAM Stat Comment: repeat Mode Of Transportation: BED Reason For Exam: cp bed 6 Review of Systems - Review of Systems Systems not reviewed;Unavailable: Intubated Review of Systems: Patient unable to provide ROS. Assessment/Plan (1) Anoxic encephalopathy Current Visit: Yes Status: Acute Comment: Most likely due to cardiac arrest Family still wants full code. Intubated Unresponsive to painful stimuli Palliative care on case (2) Cardiac arrest Current Visit: Yes Status: Acute Comment: S/P V-Tach arrest Continue Amiodarone 200mg daily Cont ASA 325 mg po daily Cont Plavix 75 mg po daily Cont Enalapril 2.5 mg po daily Cont atenolol 12.5mg daily Monitor (3) STEMI (ST elevation myocardial infarction) Current Visit: Yes Status: Acute Comment: Cardiac cath on 06/13 with occluded RCA and left main Continue ASA 325mg PO daily Cont Plavix 75mg PO daily Cont atenolol 12.5mg pO daily Cont Vasotec 2.5mg PO daily (4) Respiratory failure Current Visit: Yes Status: Acute Comment: patient intubated unresponsive to painful stimuli Vent settings as per ICU f/u blood cx and CXR (5) Seizures Current Visit: Yes Status: Acute Comment: Dr. Garcia on case-help appreciated likely secondary to anoxic injury Cont Fosphenytoin 100mg IVPB q8hrs Monitor (6) Prophylactic measure Current Visit: Yes Status: Acute Comment: Pepcid 20 mg IVP q12 SCD's Plavix <Zina Trevizo - Last Filed: 06/18/15 17:57> CCU Objective - Vital Signs / Intake & Output Vital Signs (Last 4 hours): Vital Signs Temp Pulse Resp BP Pulse Ox 06/18/15 16:00 99.9 F H 53 L 26 H 102/62 100 06/18/15 15:00 55 L 18 99/69 L 100 06/18/15 14:00 54 L 19 114/72 100 Intake and Output (Last 8hrs): Intake & Output 06/18/15 06/18/15 06/18/15 06:59 14:59 22:59 Intake Total 1390 1380 380 Output Total 650 780 250 Balance 740 600 130 Intake: Intake, IV Amount 1075 1025 300 Left Forearm 1075 925 300 L FA #18 100 Oral 100 Tube Feeding 315 255 80 Output: Urine 650 780 250 Urethral (Yoo) 650 780 250 - Medications Active Medications: Active Medications Generic Name Dose Route Start Last Admin Trade Name Freq PRN Reason Stop Dose Admin Amiodarone HCl 200 mg 06/15/15 10:00 06/18/15 10:08 Cordarone PO 200 mg DAILY JOO Administration Aspirin 325 mg 06/14/15 10:00 06/18/15 10:08 Aspirin PO 325 mg DAILY JOO Administration Atenolol 12.5 mg 06/15/15 10:00 06/18/15 10:08 Tenormin PO 12.5 mg DAILY JOO Administration Clopidogrel Bisulfate 75 mg 06/14/15 10:00 06/18/15 10:08 Plavix PO 75 mg DAILY JOO Administration Enalapril Maleate 2.5 mg 06/14/15 10:00 06/18/15 10:07 Vasotec PO 2.5 mg DAILY JOO Administration Famotidine 20 mg 06/18/15 18:00 Pepcid PO BID JOO Fosphenytoin Sodium 100 mg/ 52 mls @ 100 mls/hr 06/14/15 06:45 06/18/15 13:55 Dextrose IV 100 mls/hr Q8H JOO Administration Piperacillin Sod/Tazobactam Sod 50 mls @ 100 mls/hr 06/14/15 16:00 06/18/15 15: 40 Zosyn 3.375 Gm Iv Premix IVPB 100 mls/hr Q8H JOO Administration Sodium Chloride 1,000 mls @ 125 mls/hr 06/14/15 14:45 06/18/15 16:10 Sodium Chloride 0.9% IV Not Given .Q8H JOO Vancomycin HCl 750 mg/ Sodium 250 mls @ 166.6 mls/hr 06/14/15 16:00 06/18/15 16 :08 Chloride IVPB 166.6 mls/hr Q24H JOO Administration Potassium Chloride 40 meq 06/16/15 10:00 06/18/15 10:08 Potassium Chloride Oral Soln NG 40 meq DAILY JOO Administration - Patient Studies Lab Studies: Microbiology Studies 06/14/15 14:55 Blood Culture - Preliminary Blood NO GROWTH AFTER 3 DAYS 06/14/15 15:20 Blood Culture - Preliminary Blood NO GROWTH AFTER 3 DAYS Lab Studies 06/18/15 06/18/15 06/18/15 Range/Units 14:10 09:56 06:10 WBC 13.0 H (4.8-10.8) K/uL RBC 3.62 L (4.40-5.90) Mil/uL Hgb 10.9 L (12.0-18.0) g/dL Hct 33.4 L (35.0-51.0) % MCV 92.3 (80.0-94.0) fL MCH 30.1 (27.0-31.0) pg MCHC 32.6 L (33.0-37.0) g/dL RDW 13.9 (11.5-14.5) % Plt Count 145 (130-400) K/uL MPV 9.2 (7.2-11.7) fL Neut % (Auto) 76.6 H (50.0-75.0) % Lymph % (Auto) 11.4 L (20.0-40.0) % [place] % (Auto) 11.4 H (0.0-10.0) % Eos % (Auto) 0.4 (0.0-4.0) % Baso % (Auto) 0.2 (0.0-2.0) % Neut # 10.0 H (1.8-7.0) K/uL Lymph # 1.5 (1.0-4.3) K/uL [place] # 1.5 H (0.0-0.8) K/uL Eos # 0.1 (0.0-0.7) K/uL Baso # 0.0 (0.0-0.2) K/uL pCO2 (35.0-45.0) mm/Hg pO2 (80.0-90.0) mm/Hg HCO3 (22.0-26.0) mmol/L ABG pH (7.350-7.450) ABG Total CO2 mmol/L ABG O2 Saturation % ABG Base Excess mmol/L A-a O2 Difference mm/Hg Mechanical Rate FiO2 % Tidal Volume Sodium 132 (132-148) mmol/L Potassium 3.8 (3.6-5.0) mmol/L Chloride 101 (98-107) mmol/L Carbon Dioxide 25 (22-30) mmol/L Anion Gap 10 (10-20) BUN 17 (9-20) mg/dL Creatinine 0.9 (0.8-1.5) mg/dL Est GFR ( Amer) > 60 Est GFR (Non-Af Amer) > 60 Random Glucose 130 H (75-110) mg/dL Calcium 7.5 L (8.4-10.2) mg/dL Phosphorus 2.5 (2.5-4.5) mg/dL Magnesium 2.0 (1.6-2.3) mg/dL Total Bilirubin 0.6 (0.2-1.3) mg/dL AST 342 H D (17-59) U/L ALT 882 H D (21-72) U/L Alkaline Phosphatase 76 (38-126) U/L Ammonia < 9 L (9-33) umol/L Total Protein 5.9 L (6.3-8.2) g/dL Albumin 2.7 L (3.5-5.0) g/dL Globulin 3.2 (2.2-3.9) gm/dL Albumin/Globulin Ratio 0.8 L (1.0-2.1) Vancomycin Trough < 5.0 L (5.0-10.0) ug/mL 06/18/15 Range/Units 05:39 WBC (4.8-10.8) K/uL RBC (4.40-5.90) Mil/uL Hgb (12.0-18.0) g/dL Hct (35.0-51.0) % MCV (80.0-94.0) fL MCH (27.0-31.0) pg MCHC (33.0-37.0) g/dL RDW (11.5-14.5) % Plt Count (130-400) K/uL MPV (7.2-11.7) fL Neut % (Auto) (50.0-75.0) % Lymph % (Auto) (20.0-40.0) % [place] % (Auto) (0.0-10.0) % Eos % (Auto) (0.0-4.0) % Baso % (Auto) (0.0-2.0) % Neut # (1.8-7.0) K/uL Lymph # (1.0-4.3) K/uL [place] # (0.0-0.8) K/uL Eos # (0.0-0.7) K/uL Baso # (0.0-0.2) K/uL pCO2 27.0 L (35.0-45.0) mm/Hg pO2 100.0 H (80.0-90.0) mm/Hg HCO3 23.1 (22.0-26.0) mmol/L ABG pH 7.540 H (7.350-7.450) ABG Total CO2 23.9 mmol/L ABG O2 Saturation 98.0 % ABG Base Excess 1.5 mmol/L A-a O2 Difference 151.0 mm/Hg Mechanical Rate 16.000 FiO2 40.000 % Tidal Volume 450.000 Sodium (132-148) mmol/L Potassium (3.6-5.0) mmol/L Chloride (98-107) mmol/L Carbon Dioxide (22-30) mmol/L Anion Gap (10-20) BUN (9-20) mg/dL Creatinine (0.8-1.5) mg/dL Est GFR ( Amer) Est GFR (Non-Af Amer) Random Glucose (75-110) mg/dL Calcium (8.4-10.2) mg/dL Phosphorus (2.5-4.5) mg/dL Magnesium (1.6-2.3) mg/dL Total Bilirubin (0.2-1.3) mg/dL AST (17-59) U/L ALT (21-72) U/L Alkaline Phosphatase (38-126) U/L Ammonia (9-33) umol/L Total Protein (6.3-8.2) g/dL Albumin (3.5-5.0) g/dL Globulin (2.2-3.9) gm/dL Albumin/Globulin Ratio (1.0-2.1) Vancomycin Trough (5.0-10.0) ug/mL Laboratory Results - last 24 hr 06/18/15 06/18/15 06/18/15 05:39 06:10 09:56 WBC 13.0 H RBC 3.62 L Hgb 10.9 L Hct 33.4 L MCV 92.3 MCH 30.1 MCHC 32.6 L RDW 13.9 Plt Count 145 MPV 9.2 Neut % (Auto) 76.6 H Lymph % (Auto) 11.4 L [place] % (Auto) 11.4 H Eos % (Auto) 0.4 Baso % (Auto) 0.2 Neut # 10.0 H Lymph # 1.5 [place] # 1.5 H Eos # 0.1 Baso # 0.0 pCO2 27.0 L pO2 100.0 H HCO3 23.1 ABG pH 7.540 H ABG Total CO2 23.9 ABG O2 Saturation 98.0 ABG Base Excess 1.5 A-a O2 Difference 151.0 Mechanical Rate 16.000 FiO2 40.000 Tidal Volume 450.000 Sodium 132 Potassium 3.8 Chloride 101 Carbon Dioxide 25 Anion Gap 10 BUN 17 Creatinine 0.9 Est GFR ( Amer) > 60 Est GFR (Non-Af Amer) > 60 Random Glucose 130 H Calcium 7.5 L Phosphorus 2.5 Magnesium 2.0 Total Bilirubin 0.6 AST 342 H D ALT 882 H D Alkaline Phosphatase 76 Ammonia < 9 L Total Protein 5.9 L Albumin 2.7 L Globulin 3.2 Albumin/Globulin Ratio 0.8 L Vancomycin Trough 06/18/15 14:10 WBC RBC Hgb Hct MCV MCH MCHC RDW Plt Count MPV Neut % (Auto) Lymph % (Auto) [place] % (Auto) Eos % (Auto) Baso % (Auto) Neut # Lymph # [place] # Eos # Baso # pCO2 pO2 HCO3 ABG pH ABG Total CO2 ABG O2 Saturation ABG Base Excess A-a O2 Difference Mechanical Rate FiO2 Tidal Volume Sodium Potassium Chloride Carbon Dioxide Anion Gap BUN Creatinine Est GFR ( Amer) Est GFR (Non-Af Amer) Random Glucose Calcium Phosphorus Magnesium Total Bilirubin AST ALT Alkaline Phosphatase Ammonia Total Protein Albumin Globulin Albumin/Globulin Ratio Vancomycin Trough < 5.0 L EKG/Cardiology Studies: Cardiology / EKG Studies 06/13/15 20:54 ELECTROCARDIOGRAM Stat Comment: repeat Mode Of Transportation: BED Reason For Exam: bed 6 Attending/Attestation - Attestation I have personally seen and examined this patient.: Yes I have fully participated in the care of the patient.: Yes I have reviewed all pertinent clinical information: Yes Notes (Text): 06/18/15 17:53 Patient seen and examined. MS very poor, has dolls eyes, pupilary reflex and corneals, abscent movement to voice of pain, no gag, no cough. continues to have low grade fevers, no source of infection, wbc increasing, x- ray clean, no source of infection in skin, will check ua. spoke to daughter about poor prognosis and unlikely recovery, keeps asking the same questions, my first interaction with her so will give time to speak with them tomorrow.
--- NOTE | 2015-06-18 18:30 | CP.PCM.CON ---
<Sagar Rangel - Last Filed: 06/18/15 17:54> History of Present Illness - History of Present Illness History of Present Illness: CT Surgery Consult Re: Trach and PEG placement evaluation Pt is intubated and unresponsive to noxious stimuli. History obtained from family and medical records. 64M found unresponsive in driveway by EMS after fall witnessed by family. In the field, CPR was given, pt was in asystole and was shocked x3, given 1 dose of Epi and started on an Amio drip. In the ED, the patient was found to be in V Fib and was shocked x1. He was converted to sinus tach and given 5000 U of Heparin and Versed. He was intubated and a NGT was placed. Afterwards, he was given 600 mg of Plavis and 325 mg of ASA. He had a large laceration on the R side of his head so he was taken for a Head CT, which showed acute intracranial hemorrhage. From Patient's History obtained by [employer] from family: PMHx: unknown type of "heart trouble" that was diagnosed in [place] 15 years ago. no rx or therapy given at that time. He has not seen a physician in 15 years PSHx: Denied Soc: denied EtOH and tobacco Allergy: NKDA meds: none Family wishes full code Review of Systems - Review of Systems Systems not reviewed;Unavailable: Intubated Past Patient History - Tetanus Immunizations Tetanus Immunization: Unknown - Past Medical History & Family History Past Medical History?: Yes - Past Social History Smoking Status: Never Smoked - CARDIAC Hx Cardiac Disorders: (unknown condition diagnosed in [place] 15 years ago) - MUSCULOSKELETAL/RHEUMATOLOGICAL Hx Falls: Yes - PSYCHIATRIC Hx Substance Use: No - ANESTHESIA Hx Anesthesia: No Hx Anesthesia Reactions: No Hx Malignant Hyperthermia: No Has any member of the family had a problem w/ anesthesia?: No Meds Home Medications: Home Medication List Medication Instructions Recorded Confirmed Type No Known Home Med [No Known Home 06/13/15 06/13/15 History Med] Allergies/Adverse Reactions: Allergies Allergy/AdvReac Type Severity Reaction Status Date / Time No Known Allergies Allergy Unverified 06/13/15 20:57 - Medications Medications: Current Medications Amiodarone HCl (Cordarone) 200 mg PO DAILY [facility] Last Admin: 06/18/15 10:08 Dose: 200 mg Aspirin (Aspirin) 325 mg PO DAILY [facility] Last Admin: 06/18/15 10:08 Dose: 325 mg Atenolol (Tenormin) 12.5 mg PO DAILY [facility] Last Admin: 06/18/15 10:08 Dose: 12.5 mg Clopidogrel Bisulfate (Plavix) 75 mg PO DAILY [facility] Last Admin: 06/18/15 10:08 Dose: 75 mg Enalapril Maleate (Vasotec) 2.5 mg PO DAILY [facility] Last Admin: 06/18/15 10:07 Dose: 2.5 mg Famotidine (Pepcid) 20 mg PO BID [facility] Fosphenytoin Sodium 100 mg/ (Dextrose) 52 mls @ 100 mls/hr IV Q8H [facility] Last Admin: 06/18/15 13:55 Dose: 100 mls/hr Piperacillin Sod/Tazobactam Sod (Zosyn 3.375 Gm Iv Premix) 50 mls @ 100 mls/hr IVPB Q8H [facility] Last Admin: 06/18/15 15:40 Dose: 100 mls/hr Sodium Chloride (Sodium Chloride 0.9%) 1,000 mls @ 125 mls/hr IV .Q8H [facility] Last Admin: 06/18/15 16:10 Dose: Not Given Vancomycin HCl 750 mg/ Sodium (Chloride) 250 mls @ 166.6 mls/hr IVPB Q24H [facility] Last Admin: 06/18/15 16:08 Dose: 166.6 mls/hr Potassium Chloride (Potassium Chloride Oral Soln) 40 meq NG DAILY [facility] Last Admin: 06/18/15 10:08 Dose: 40 meq Physical Exam - Constitutional Appears: Non-toxic, No Acute Distress - Head Exam Head Exam: NORMOCEPHALIC Additional comments: R side laceration - Eye Exam Eye Exam: PERRL - ENT Exam Additional comments: ET tube in place - Neck Exam Neck exam: Positive for: Normal Inspection Additional comments: trachea midline, no masses - Respiratory Exam Respiratory Exam: Rhonchi, NORMAL BREATHING PATTERN - Cardiovascular Exam Cardiovascular Exam: Bradycardia, +S1, +S2 - GI/Abdominal Exam GI & Abdominal Exam: Hypoactive Bowel Sounds, Soft. absent: Distended, Guarding , Mass, Rebound, Rigid - Extremities Exam Extremities exam: Negative for: pedal pulses present - Back Exam Back exam: absent: CVA tenderness (L), CVA tenderness (R) - Neurological Exam Additional comments: Unresponsive to verbal or physical stimuli - Skin Skin Exam: Dry, Warm Results - Vital Signs Recent Vital Signs: Last Vital Signs Temp 99.9 F H 06/18/15 16:00 Pulse 53 L 06/18/15 16:00 Resp 26 H 06/18/15 16:00 BP 102/62 06/18/15 16:00 Pulse Ox 100 06/18/15 16:00 - Labs Result Diagrams: 06/18/15 06:10 06/18/15 06:10 Labs: Laboratory Results - last 24 hr 06/18/15 06/18/15 06/18/15 05:39 06:10 09:56 WBC 13.0 H RBC 3.62 L Hgb 10.9 L Hct 33.4 L MCV 92.3 MCH 30.1 MCHC 32.6 L RDW 13.9 Plt Count 145 MPV 9.2 Neut % (Auto) 76.6 H Lymph % (Auto) 11.4 L [place] % (Auto) 11.4 H Eos % (Auto) 0.4 Baso % (Auto) 0.2 Neut # 10.0 H Lymph # 1.5 [place] # 1.5 H Eos # 0.1 Baso # 0.0 pCO2 27.0 L pO2 100.0 H HCO3 23.1 ABG pH 7.540 H ABG Total CO2 23.9 ABG O2 Saturation 98.0 ABG Base Excess 1.5 A-a O2 Difference 151.0 Mechanical Rate 16.000 FiO2 40.000 Tidal Volume 450.000 Sodium 132 Potassium 3.8 Chloride 101 Carbon Dioxide 25 Anion Gap 10 BUN 17 Creatinine 0.9 Est GFR ( Amer) > 60 Est GFR (Non-Af Amer) > 60 Random Glucose 130 H Calcium 7.5 L Phosphorus 2.5 Magnesium 2.0 Total Bilirubin 0.6 AST 342 H D ALT 882 H D Alkaline Phosphatase 76 Ammonia < 9 L Total Protein 5.9 L Albumin 2.7 L Globulin 3.2 Albumin/Globulin Ratio 0.8 L Vancomycin Trough 06/18/15 14:10 WBC RBC Hgb Hct MCV MCH MCHC RDW Plt Count MPV Neut % (Auto) Lymph % (Auto) [place] % (Auto) Eos % (Auto) Baso % (Auto) Neut # Lymph # [place] # Eos # Baso # pCO2 pO2 HCO3 ABG pH ABG Total CO2 ABG O2 Saturation ABG Base Excess A-a O2 Difference Mechanical Rate FiO2 Tidal Volume Sodium Potassium Chloride Carbon Dioxide Anion Gap BUN Creatinine Est GFR ( Amer) Est GFR (Non-Af Amer) Random Glucose Calcium Phosphorus Magnesium Total Bilirubin AST ALT Alkaline Phosphatase Ammonia Total Protein Albumin Globulin Albumin/Globulin Ratio Vancomycin Trough < 5.0 L Assessment/Plan - Assessment and Plan (Free Text) Assessment: 64M with likely anoxic brain injury after cardiac arrest, with intracranial hemorrhage. Being evaluated for trach and peg. Plan: Day 5 on Vent Will go to OR (on schedule for Thursday) once family makes a decision on whether or not they want it done. D/W Dr Chan <Blair Chan - Last Filed: 06/18/15 22:18> Meds - Medications Medications: Current Medications Amiodarone HCl (Cordarone) 200 mg PO DAILY [facility] Last Admin: 06/18/15 10:08 Dose: 200 mg Aspirin (Aspirin) 325 mg PO DAILY [facility] Last Admin: 06/18/15 10:08 Dose: 325 mg Atenolol (Tenormin) 12.5 mg PO DAILY [facility] Last Admin: 06/18/15 10:08 Dose: 12.5 mg Clopidogrel Bisulfate (Plavix) 75 mg PO DAILY [facility] Last Admin: 06/18/15 10:08 Dose: 75 mg Enalapril Maleate (Vasotec) 2.5 mg PO DAILY [facility] Last Admin: 06/18/15 10:07 Dose: 2.5 mg Famotidine (Pepcid) 20 mg PO BID [facility] Last Admin: 06/18/15 18:08 Dose: 20 mg Fosphenytoin Sodium 100 mg/ (Dextrose) 52 mls @ 100 mls/hr IV Q8H [facility] Last Admin: 06/18/15 22:02 Dose: 100 mls/hr Piperacillin Sod/Tazobactam Sod (Zosyn 3.375 Gm Iv Premix) 50 mls @ 100 mls/hr IVPB Q8H [facility] Last Admin: 06/18/15 15:40 Dose: 100 mls/hr Sodium Chloride (Sodium Chloride 0.9%) 1,000 mls @ 125 mls/hr IV .Q8H [facility] Last Admin: 06/18/15 18:22 Dose: 125 mls/hr Vancomycin HCl 750 mg/ Sodium (Chloride) 250 mls @ 166.6 mls/hr IVPB Q24H [facility] Last Admin: 06/18/15 16:08 Dose: 166.6 mls/hr Potassium Chloride (Potassium Chloride Oral Soln) 40 meq NG DAILY [facility] Last Admin: 06/18/15 10:08 Dose: 40 meq Results - Vital Signs Recent Vital Signs: Last Vital Signs Temp 99.1 F 06/18/15 20:00 Pulse 62 06/18/15 22:00 Resp 26 H 06/18/15 22:00 BP 138/75 06/18/15 22:00 Pulse Ox 99 06/18/15 22:00 - Labs Result Diagrams: 06/18/15 06:10 06/18/15 06:10 Labs: Laboratory Results - last 24 hr 06/18/15 06/18/15 06/18/15 05:39 06:10 09:56 WBC 13.0 H RBC 3.62 L Hgb 10.9 L Hct 33.4 L MCV 92.3 MCH 30.1 MCHC 32.6 L RDW 13.9 Plt Count 145 MPV 9.2 Neut % (Auto) 76.6 H Lymph % (Auto) 11.4 L [place] % (Auto) 11.4 H Eos % (Auto) 0.4 Baso % (Auto) 0.2 Neut # 10.0 H Lymph # 1.5 [place] # 1.5 H Eos # 0.1 Baso # 0.0 pCO2 27.0 L pO2 100.0 H HCO3 23.1 ABG pH 7.540 H ABG Total CO2 23.9 ABG O2 Saturation 98.0 ABG Base Excess 1.5 A-a O2 Difference 151.0 Mechanical Rate 16.000 FiO2 40.000 Tidal Volume 450.000 Sodium 132 Potassium 3.8 Chloride 101 Carbon Dioxide 25 Anion Gap 10 BUN 17 Creatinine 0.9 Est GFR ( Amer) > 60 Est GFR (Non-Af Amer) > 60 Random Glucose 130 H Calcium 7.5 L Phosphorus 2.5 Magnesium 2.0 Total Bilirubin 0.6 AST 342 H D ALT 882 H D Alkaline Phosphatase 76 Ammonia < 9 L Total Protein 5.9 L Albumin 2.7 L Globulin 3.2 Albumin/Globulin Ratio 0.8 L Vancomycin Trough 06/18/15 14:10 WBC RBC Hgb Hct MCV MCH MCHC RDW Plt Count MPV Neut % (Auto) Lymph % (Auto) [place] % (Auto) Eos % (Auto) Baso % (Auto) Neut # Lymph # [place] # Eos # Baso # pCO2 pO2 HCO3 ABG pH ABG Total CO2 ABG O2 Saturation ABG Base Excess A-a O2 Difference Mechanical Rate FiO2 Tidal Volume Sodium Potassium Chloride Carbon Dioxide Anion Gap BUN Creatinine Est GFR ( Amer) Est GFR (Non-Af Amer) Random Glucose Calcium Phosphorus Magnesium Total Bilirubin AST ALT Alkaline Phosphatase Ammonia Total Protein Albumin Globulin Albumin/Globulin Ratio Vancomycin Trough < 5.0 L Assessment/Plan - Assessment and Plan (Free Text) Assessment: 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 Will await family decision re: trach and PEG. Pt is a candidate. Will follow with you. Blair Chan MD FACS
[2015-06-19] MEDS: Sodium Chloride 0.9% 1,000 ML IV SCH ×5 (04:05→21:42)
[2015-06-19 05:56] LABS: ARTERIAL BLOOD GAS HCO3 25.7 mmol/L (22.0-26.0); ARTERIAL BLOOD GAS TCO2 26.7 mmol/L
[2015-06-19] MEDS: Fosphenytoin 100 MG in Dextrose 5% In Water 50 ML IV SCH ×3 (06:09→21:44)
[2015-06-19 06:45] LABS: BASO % 0.2 % (0.0-2.0); EOS # 0.1 K/uL (0.0-0.7); EOS % 0.9 % (0.0-4.0); HEMOGLOBIN 11.3 g/dL (12.0-18.0); LYMPH # 0.7 K/uL (1.0-4.3); LYMPH % 5.5 % (20.0-40.0); MEAN CELL VOLUME 92.5 fL (80.0-94.0); MEAN CORPUSCULAR HEMOGLOBIN 30.2 pg (27.0-31.0); MEAN CORPUSCULAR HGB CONC 32.7 g/dL (33.0-37.0); MEAN PLATELET VOLUME 9.5 fL (7.2-11.7); NEUT # 10.6 K/uL (1.8-7.0); NEUT % 85.4 % (50.0-75.0); PLATELET COUNT 160 K/uL (130-400); RBC 3.75 Mil/uL (4.40-5.90); RED CELL DISTRIBUTION WIDTH 14.2 % (11.5-14.5); WHITE BLOOD COUNT 12.4 K/uL (4.8-10.8)
[2015-06-19 07:39] LABS: ALBUMIN 2.5 g/dL (3.5-5.0)
[2015-06-19 07:41] LABS: GFR NON-AFRICAN AMERICAN > 60
[2015-06-19 07:42] LABS: ALB/GLOB RATIO 0.9 (1.0-2.1); ALT/SGPT 587 U/L (21-72); AST/SGOT 199 U/L (17-59); BLOOD UREA NITROGEN 14 mg/dL (9-20); CALCIUM 7.3 mg/dL (8.4-10.2)
[2015-06-19] MEDS: Piperacill/Tazo 3.375gm in Dex 50 ML IVPB SCH ×2 (07:45→14:00)
[2015-06-19 08:33] LABS: EOSINOPHIL 2 % (0-4); LYMPHOCYTE 6 % (20-40); MONOCYTE 5 % (0-10); NEUTROPHIL 87 % (50-75); TOTAL CELLS COUNTED 100
[2015-06-19 08:34] LABS: ANISOCYTOSIS SLIGHT; BURR CELLS SLIGHT; HYPOCHROMIC SLIGHT; OVALOCYTES SLIGHT; PLATELET ESTIMATE NORMAL (NORMAL); POIKILOCYTOSIS SLIGHT
[2015-06-19 08:35] LABS: TOXIC GRANULATION PRESENT
--- NOTE | 2015-06-19 09:20 | PN ---
DATE: 06/19/2015 TIME OF EVALUATION: 7:35 a.m. NEUROLOGICAL PROBLEM: Anoxic encephalopathy. The patient is deeply comatose. Eyes are all closed. Pupils reactive to light. Corneal reflex abse nt. Roving conjugate gaze is not present. Oculocephalic absent. Gag impaired. Quadriplegic. Aref lexic. Plantars are mute. The patient did develop autonomic instability yesterday that prevented him not to go for the CAT scan . RECOMMENDATIONS: 1. Repeat CT of the head. 2. Check a Dilantin level. The patient's condition had been discussed with family members earlier. They decided to keep him ali ve as much as medically possible. The patient will be followed closely with you. Dennis Garcia MD cc: [id number] TT: 06/19/2015 09:20:36 [email or web address]
[2015-06-19] MEDS: Potassium Chloride 20 mEq/15 ml LIQ UD NG SCH (10:12)
--- NOTE | 2015-06-19 10:45 | RAD ---
PROCEDURE: CHEST RADIOGRAPH, 1 VIEW HISTORY: Ventilator COMPARISON: 06/18/2015 FINDINGS: LUNGS: Lines and tubes in stable position. Mild patchy right infrahilar and left basilar airspace opacities. PLEURA: Trace left pleural effusion. CARDIOVASCULAR: Normal. OSSEOUS STRUCTURES: No significant abnormalities. VISUALIZED UPPER ABDOMEN: Normal. OTHER FINDINGS: None. IMPRESSION: Mild patchy right infrahilar and left basilar airspace opacities. Trace left pleural effusion.
--- NOTE | 2015-06-19 11:39 | CP.PCM.PN ---
Subjective - Subjective Subjective: Pt was seen and examined at bedside this morning. Pt was unresponsive and intubated. No acute events overnight. Review of Systems - Review of Systems Systems not reviewed;Unavailable: Intubated Objective - Vital Signs/Intake and Output Vital Signs (last 24 hours): Vital Signs - 24 hr 06/18/15 06/18/15 06/18/15 12:00 13:00 14:00 Temperature 99.1 F Pulse Rate 59 L 53 L 54 L Respiratory 20 18 19 Rate Blood Pressure 141/63 114/67 114/72 O2 Sat by Pulse 100 100 100 Oximetry 06/18/15 06/18/15 06/18/15 15:00 16:00 17:00 Temperature 99.9 F H Pulse Rate 55 L 53 L 52 L Respiratory 18 26 H 26 H Rate Blood Pressure 99/69 L 102/62 102/55 L O2 Sat by Pulse 100 100 100 Oximetry 06/18/15 06/18/15 06/18/15 18:00 19:00 20:00 Temperature 100.5 F H 99.1 F Pulse Rate 54 L 75 66 Respiratory 29 H 27 H 24 Rate Blood Pressure 108/60 118/71 123/68 O2 Sat by Pulse 100 100 99 Oximetry 06/18/15 06/18/15 06/18/15 21:00 22:00 23:00 Temperature Pulse Rate 57 L 62 60 Respiratory 22 26 H 24 Rate Blood Pressure 123/69 138/75 116/76 O2 Sat by Pulse 100 99 100 Oximetry 06/19/15 06/19/15 06/19/15 00:00 01:00 02:00 Temperature 97.8 F Pulse Rate 68 59 L 62 Respiratory 20 20 24 Rate Blood Pressure 121/76 119/72 126/78 O2 Sat by Pulse 100 100 100 Oximetry 06/19/15 06/19/15 06/19/15 03:00 04:00 05:00 Temperature 100 F H Pulse Rate 58 L 60 53 L Respiratory 20 21 22 Rate Blood Pressure 114/75 136/81 102/62 O2 Sat by Pulse 100 100 100 Oximetry 06/19/15 06/19/15 06/19/15 06:00 07:00 08:00 Temperature 99.1 F Pulse Rate 58 L 69 60 Respiratory 20 23 16 Rate Blood Pressure 139/71 134/74 118/67 O2 Sat by Pulse 100 100 100 Oximetry 07/06/19/15 06/19/15 09:00 10:00 11:00 Temperature Pulse Rate 63 56 L 59 L Respiratory 16 20 20 Rate Blood Pressure 103/64 113/61 94/52 L O2 Sat by Pulse 100 100 100 Oximetry 06/19/15 11:25 Temperature Pulse Rate Respiratory Rate Blood Pressure 94/52 L O2 Sat by Pulse Oximetry Intake and Output (last 12 hours): Intake & Output 06/18/15 06/19/15 06/19/15 18:59 06:59 18:59 Intake Total 2190 2130 825 Output Total 1255 1925 840 Balance 935 205 -15 Weight 155 lb 6.814 oz Intake: Intake, IV Amount 1575 1650 625 Left Forearm 1475 1650 625 L FA #18 100 Oral 200 Tube Feeding 415 480 200 Output: Urine 1255 1925 840 Urethral (Yoo) 1255 1925 840 - Medications Medications: Current Medications Amiodarone HCl (Cordarone) 200 mg PO DAILY [facility] Last Admin: 06/19/15 10:12 Dose: 200 mg Aspirin (Aspirin) 325 mg PO DAILY [facility] Last Admin: 06/19/15 10:12 Dose: 325 mg Atenolol (Tenormin) 12.5 mg PO DAILY [facility] Last Admin: 06/19/15 10:12 Dose: 12.5 mg Clopidogrel Bisulfate (Plavix) 75 mg PO DAILY [facility] Last Admin: 06/19/15 10:12 Dose: 75 mg Enalapril Maleate (Vasotec) 2.5 mg PO DAILY [facility] Last Admin: 06/19/15 11:25 Dose: Not Given Famotidine (Pepcid) 20 mg PO BID [facility] Last Admin: 06/19/15 10:12 Dose: 20 mg Fosphenytoin Sodium 100 mg/ (Dextrose) 52 mls @ 100 mls/hr IV Q8H [facility] Last Admin: 06/19/15 06:09 Dose: 100 mls/hr Piperacillin Sod/Tazobactam Sod (Zosyn 3.375 Gm Iv Premix) 50 mls @ 100 mls/hr IVPB Q8H [facility] Last Admin: 06/19/15 07:45 Dose: 100 mls/hr Sodium Chloride (Sodium Chloride 0.9%) 1,000 mls @ 125 mls/hr IV .Q8H [facility] Last Admin: 06/19/15 06:55 Dose: Not Given Vancomycin HCl 750 mg/ Sodium (Chloride) 250 mls @ 166.6 mls/hr IVPB Q24H [facility] Last Admin: 06/18/15 16:08 Dose: 166.6 mls/hr Polyethylene Glycol (Miralax) 17 gm PO DAILY [facility] Potassium Chloride (Potassium Chloride Oral Soln) 40 meq NG DAILY [facility] Last Admin: 06/19/15 10:12 Dose: 40 meq - Labs Labs (last 24 hours): Laboratory Results - last 24 hr 06/18/15 06/19/15 06/19/15 14:10 05:35 06:35 WBC 12.4 H RBC 3.75 L Hgb 11.3 L Hct 34.7 L MCV 92.5 MCH 30.2 MCHC 32.7 L RDW 14.2 Plt Count 160 MPV 9.5 Neut % (Auto) 85.4 H Lymph % (Auto) 5.5 L [place] % (Auto) 8.0 Eos % (Auto) 0.9 Baso % (Auto) 0.2 Neut # 10.6 H Lymph # 0.7 L [place] # 1.0 H Eos # 0.1 Baso # 0.0 Neutrophils % (Manual) 87 H Lymphocytes % (Manual) 6 L Monocytes % (Manual) 5 Eosinophils % (Manual) 2 Toxic Granulation Present Platelet Estimate Normal Hypochromasia (manual) Slight Poikilocytosis (manual Slight Anisocytosis (manual) Slight Ovalocytes Slight [place] Cells Slight pCO2 33.0 L pO2 103.0 H HCO3 25.7 ABG pH 7.500 H ABG Total CO2 26.7 ABG O2 Saturation 98.0 ABG Base Excess 2.8 A-a O2 Difference 141.0 Mechanical Rate 16.000 FiO2 40.000 Tidal Volume 450.000 Sodium 133 Potassium 3.5 L Chloride 103 Carbon Dioxide 23 Anion Gap 11 BUN 14 Creatinine 0.7 L Est GFR ( Amer) > 60 Est GFR (Non-Af Amer) > 60 Random Glucose 128 H Calcium 7.3 L Phosphorus 2.5 Magnesium 2.0 Total Bilirubin 0.5 AST 199 H D ALT 587 H D Alkaline Phosphatase 69 Total Protein 5.3 L Albumin 2.5 L Globulin 2.8 Albumin/Globulin Ratio 0.9 L Vancomycin Trough < 5.0 L Phenytoin 06/19/15 09:26 WBC RBC Hgb Hct MCV MCH MCHC RDW Plt Count MPV Neut % (Auto) Lymph % (Auto) [place] % (Auto) Eos % (Auto) Baso % (Auto) Neut # Lymph # [place] # Eos # Baso # Neutrophils % (Manual) Lymphocytes % (Manual) Monocytes % (Manual) Eosinophils % (Manual) Toxic Granulation Platelet Estimate Hypochromasia (manual) Poikilocytosis (manual Anisocytosis (manual) Ovalocytes [place] Cells pCO2 pO2 HCO3 ABG pH ABG Total CO2 ABG O2 Saturation ABG Base Excess A-a O2 Difference Mechanical Rate FiO2 Tidal Volume Sodium Potassium Chloride Carbon Dioxide Anion Gap BUN Creatinine Est GFR ( Amer) Est GFR (Non-Af Amer) Random Glucose Calcium Phosphorus Magnesium Total Bilirubin AST ALT Alkaline Phosphatase Total Protein Albumin Globulin Albumin/Globulin Ratio Vancomycin Trough Phenytoin 6.5 L - Constitutional Appears: Non-toxic, No Acute Distress - Eye Exam Pupil Exam: NORMAL ACCOMODATION - Respiratory Exam Respiratory Exam: NORMAL BREATHING PATTERN Additional comments: intubated on vent - Cardiovascular Exam Cardiovascular Exam: REGULAR RHYTHM, +S1, +S2 - GI/Abdominal Exam GI & Abdominal Exam: Hypoactive Bowel Sounds, Soft Assessment/Plan - Assessment and Plan (Free Text) Assessment: 64M with anoxic brain injury secondary to cardiac arrest associated with cerebral hemorrhage. Plan: Family agreed to trach and peg insertion after risks and benefits explained. Consent was signed. OR scheduled for tomorrow. Stop feeding after midnight. D/W Dr. Chan.
--- NOTE | 2015-06-19 12:24 | CP.PCM.PN ---
Subjective - Subjective Subjective: Patient seen and examined by me as well. Family present as well, they signed for PEG tube as well as trach conset and probably tommorow for OR. There was no acute change in situation since yesterday. Objective - Vital Signs/Intake and Output Vital Signs (last 24 hours): Vital Signs - 24 hr 06/18/15 06/18/15 06/18/15 13:00 14:00 15:00 Temperature Pulse Rate 53 L 54 L 55 L Respiratory 18 19 18 Rate Blood Pressure 114/67 114/72 99/69 L O2 Sat by Pulse 100 100 100 Oximetry 06/18/15 06/18/15 06/18/15 16:00 17:00 18:00 Temperature 99.9 F H 100.5 F H Pulse Rate 53 L 52 L 54 L Respiratory 26 H 26 H 29 H Rate Blood Pressure 102/62 102/55 L 108/60 O2 Sat by Pulse 100 100 100 Oximetry 06/18/15 06/18/15 06/18/15 19:00 20:00 21:00 Temperature 99.1 F Pulse Rate 75 66 57 L Respiratory 27 H 24 22 Rate Blood Pressure 118/71 123/68 123/69 O2 Sat by Pulse 100 99 100 Oximetry 06/18/15 06/18/15 06/19/15 22:00 23:00 00:00 Temperature 97.8 F Pulse Rate 62 60 68 Respiratory 26 H 24 20 Rate Blood Pressure 138/75 116/76 121/76 O2 Sat by Pulse 99 100 100 Oximetry 06/19/15 06/19/15 06/19/15 01:00 02:00 03:00 Temperature Pulse Rate 59 L 62 58 L Respiratory 20 24 20 Rate Blood Pressure 119/72 126/78 114/75 O2 Sat by Pulse 100 100 100 Oximetry 06/19/15 06/19/15 06/19/15 04:00 05:00 06:00 Temperature 100 F H Pulse Rate 60 53 L 58 L Respiratory 21 22 20 Rate Blood Pressure 136/81 102/62 139/71 O2 Sat by Pulse 100 100 100 Oximetry 06/19/15 06/19/15 06/19/15 07:00 08:00 09:00 Temperature 99.1 F Pulse Rate 69 60 63 Respiratory 23 16 16 Rate Blood Pressure 134/74 118/67 103/64 O2 Sat by Pulse 100 100 100 Oximetry 0706/19/15 06/19/15 10:00 11:00 11:25 Temperature Pulse Rate 56 L 59 L Respiratory 20 20 Rate Blood Pressure 113/61 94/52 L 94/52 L O2 Sat by Pulse 100 100 Oximetry Intake and Output (last 12 hours): Intake & Output 06/18/15 06/19/15 06/19/15 18:59 06:59 18:59 Intake Total 2190 2130 825 Output Total 1255 1925 840 Balance 935 205 -15 Weight 155 lb 6.814 oz Intake: Intake, IV Amount 1575 1650 625 Left Forearm 1475 1650 625 L FA #18 100 Oral 200 Tube Feeding 415 480 200 Output: Urine 1255 1925 840 Urethral (Yoo) 1255 1925 840 - Medications Medications: Current Medications Amiodarone HCl (Cordarone) 200 mg PO DAILY [facility] Last Admin: 06/19/15 10:12 Dose: 200 mg Aspirin (Aspirin) 325 mg PO DAILY [facility] Last Admin: 06/19/15 10:12 Dose: 325 mg Atenolol (Tenormin) 12.5 mg PO DAILY [facility] Last Admin: 06/19/15 10:12 Dose: 12.5 mg Clopidogrel Bisulfate (Plavix) 75 mg PO DAILY [facility] Last Admin: 06/19/15 10:12 Dose: 75 mg Enalapril Maleate (Vasotec) 2.5 mg PO DAILY [facility] Last Admin: 06/19/15 11:25 Dose: Not Given Famotidine (Pepcid) 20 mg PO BID [facility] Last Admin: 06/19/15 10:12 Dose: 20 mg Fosphenytoin Sodium 100 mg/ (Dextrose) 52 mls @ 100 mls/hr IV Q8H [facility] Last Admin: 06/19/15 06:09 Dose: 100 mls/hr Piperacillin Sod/Tazobactam Sod (Zosyn 3.375 Gm Iv Premix) 50 mls @ 100 mls/hr IVPB Q8H [facility] Last Admin: 06/19/15 07:45 Dose: 100 mls/hr Sodium Chloride (Sodium Chloride 0.9%) 1,000 mls @ 125 mls/hr IV .Q8H [facility] Last Admin: 06/19/15 06:55 Dose: Not Given Vancomycin HCl 750 mg/ Sodium (Chloride) 250 mls @ 166.6 mls/hr IVPB Q24H [facility] Last Admin: 06/18/15 16:08 Dose: 166.6 mls/hr Polyethylene Glycol (Miralax) 17 gm PO DAILY [facility] Potassium Chloride (Potassium Chloride Oral Soln) 40 meq NG DAILY [facility] Last Admin: 06/19/15 10:12 Dose: 40 meq - Labs Labs (last 24 hours): Laboratory Results - last 24 hr 06/18/15 06/19/15 06/19/15 14:10 05:35 06:35 WBC 12.4 H RBC 3.75 L Hgb 11.3 L Hct 34.7 L MCV 92.5 MCH 30.2 MCHC 32.7 L RDW 14.2 Plt Count 160 MPV 9.5 Neut % (Auto) 85.4 H Lymph % (Auto) 5.5 L [place] % (Auto) 8.0 Eos % (Auto) 0.9 Baso % (Auto) 0.2 Neut # 10.6 H Lymph # 0.7 L [place] # 1.0 H Eos # 0.1 Baso # 0.0 Neutrophils % (Manual) 87 H Lymphocytes % (Manual) 6 L Monocytes % (Manual) 5 Eosinophils % (Manual) 2 Toxic Granulation Present Platelet Estimate Normal Hypochromasia (manual) Slight Poikilocytosis (manual Slight Anisocytosis (manual) Slight Ovalocytes Slight [place] Cells Slight pCO2 33.0 L pO2 103.0 H HCO3 25.7 ABG pH 7.500 H ABG Total CO2 26.7 ABG O2 Saturation 98.0 ABG Base Excess 2.8 A-a O2 Difference 141.0 Mechanical Rate 16.000 FiO2 40.000 Tidal Volume 450.000 Sodium 133 Potassium 3.5 L Chloride 103 Carbon Dioxide 23 Anion Gap 11 BUN 14 Creatinine 0.7 L Est GFR ( Amer) > 60 Est GFR (Non-Af Amer) > 60 Random Glucose 128 H Calcium 7.3 L Phosphorus 2.5 Magnesium 2.0 Total Bilirubin 0.5 AST 199 H D ALT 587 H D Alkaline Phosphatase 69 Total Protein 5.3 L Albumin 2.5 L Globulin 2.8 Albumin/Globulin Ratio 0.9 L Vancomycin Trough < 5.0 L Phenytoin 06/19/15 09:26 WBC RBC Hgb Hct MCV MCH MCHC RDW Plt Count MPV Neut % (Auto) Lymph % (Auto) [place] % (Auto) Eos % (Auto) Baso % (Auto) Neut # Lymph # [place] # Eos # Baso # Neutrophils % (Manual) Lymphocytes % (Manual) Monocytes % (Manual) Eosinophils % (Manual) Toxic Granulation Platelet Estimate Hypochromasia (manual) Poikilocytosis (manual Anisocytosis (manual) Ovalocytes [place] Cells pCO2 pO2 HCO3 ABG pH ABG Total CO2 ABG O2 Saturation ABG Base Excess A-a O2 Difference Mechanical Rate FiO2 Tidal Volume Sodium Potassium Chloride Carbon Dioxide Anion Gap BUN Creatinine Est GFR ( Amer) Est GFR (Non-Af Amer) Random Glucose Calcium Phosphorus Magnesium Total Bilirubin AST ALT Alkaline Phosphatase Total Protein Albumin Globulin Albumin/Globulin Ratio Vancomycin Trough Phenytoin 6.5 L - Constitutional Appears: Older Than Stated Age, Cachectic, Chronically Ill - Head Exam Head Exam: NORMOCEPHALIC Additional comments: ET, NGT - ENT Exam Additional comments: ET, NGT - Respiratory Exam Additional comments: On mechanical ventilation - Neurological Exam Neurological exam: Altered Additional comments: Not responding to stimuli, there is some spontaneous eye movement - Skin Skin Exam: Pallor, Pallor Assessment/Plan (1) Respiratory failure Current Visit: Yes Status: Acute Comment: As before, no change. There is plan for PEG as well as traceostomy. (2) Anoxic encephalopathy Current Visit: Yes Status: Acute Comment: Most likely due to cardiac arrest Family still wants full code. Intubated Unresponsive to painful stimuli Palliative care on case (3) STEMI (ST elevation myocardial infarction) Current Visit: Yes Status: Acute Comment: Cardiac cath on 06/13 with occluded RCA and left main Continue ASA 325mg PO daily Cont Plavix 75mg PO daily Cont atenolol 12.5mg pO daily Cont Vasotec 2.5mg PO daily (4) Cardiac arrest Current Visit: Yes Status: Acute Comment: S/P V-Tach arrest Continue Amiodarone 200mg daily Cont ASA 325 mg po daily Cont Plavix 75 mg po daily Cont Enalapril 2.5 mg po daily Cont atenolol 12.5mg daily Monitor (5) Seizures Current Visit: Yes Status: Acute Comment: Dr. Garcia on case-help appreciated likely secondary to anoxic injury Cont Fosphenytoin 100mg IVPB q8hrs Monitor (6) Prophylactic measure Current Visit: Yes Status: Acute Comment: Pepcid 20 mg IVP q12 SCD's Plavix
--- NOTE | 2015-06-19 14:05 | PN ---
DATE: 06/19/2015 The patient is still deeply comatose. PHYSICAL EXAMINATION: VITAL SIGNS: Blood pressure 94/52, heart rate 59, temperature 99.1. HEENT: Dressings applied to the scalp wound. CHEST: Rhonchi. HEART: S1, S2 regular. EXTREMITIES: No hematoma or edema. LABORATORIES: Hemoglobin and hematocrit 11.3 and 34.7. SMA-7: Sodium 133, potassium 3.5, chloride 103, CO2 23, glucose 128, BUN 14, creatinine 0.7. ASSESSMENT: 1. Status post cardiac arrest and percutaneous coronary intervention to the mid right coronary artery with known left main coronary artery disease. 2. Anoxic encephalopathy. 3. Sinus bradycardia. 4. Mild hypokalemia. RECOMMENDATIONS: Continue current amiodarone, Pepcid, Plavix, intravenous vancomycin and Zosyn. Continue enalapril, discontinue atenolol. EEG was performed, but the report is still pending. Ashu Hamlin MD cc: [id number] TT: 06/19/2015 14:05:28 [email or web address] [email or web address]
[2015-06-19] MEDS: POLYETHYLENE GLYCOL 3350 17 GM/Dose PACKET PO SCH (14:32)
--- NOTE | 2015-06-19 15:21 | CP.PCM.PN ---
Subjective - Subjective Subjective: Palliative Care Nursing Progress note Reason: Establishing goals of care Altered mental status 64 yo male admitted to ICU on 06/13/2015 after sustaining cardiac arrest at home which resulted in anoxic brain injury. Patient is intubated on the vent support , unresponsive to stimuli with GCS of 3. Prognosis is poor . Code status , FULL CODE. PPS 10 %.Family requested to talk to the Doctor and family meeting was sat up by Doctor Kaplan. Gustabo Pak and patient's and daughter were present. The Medical student was very helpful in translating for the family, due to their limited or no [place] speaking. Doctor Eusebio was very clear and detailed in explaining patient's present medical condition and prognosis. They were told that unfortunately, this patient will never recover and that his condition will only get worse.Family was presented with burdens of mechanical ventilation and possible complications that come with it. Poor or not quality of life was emphasized. The daughter and the referred to their quaker and believes and clearly stated request to keep patient alive using all radical measures possible. They intend to transfer him to [place] on vent. support when medically stable. Family also reports lock of financial resources to pursue their intentions. * Would continue the vent support * Would contact about Medical transportation to [place] and way it could be done, if at all possible. * Pastoral care for spiritual support during this difficult time Objective - Vital Signs/Intake and Output Vital Signs (last 24 hours): Vital Signs - 24 hr 06/18/15 06/18/15 06/18/15 15:00 16:00 17:00 Temperature 99.9 F H Pulse Rate 55 L 53 L 52 L Respiratory 18 26 H 26 H Rate Blood Pressure 99/69 L 102/62 102/55 L O2 Sat by Pulse 100 100 100 Oximetry 06/18/15 06/18/15 06/18/15 18:00 19:00 20:00 Temperature 100.5 F H 99.1 F Pulse Rate 54 L 75 66 Respiratory 29 H 27 H 24 Rate Blood Pressure 108/60 118/71 123/68 O2 Sat by Pulse 100 100 99 Oximetry 06/18/15 06/18/15 06/18/15 21:00 22:00 23:00 Temperature Pulse Rate 57 L 62 60 Respiratory 22 26 H 24 Rate Blood Pressure 123/69 138/75 116/76 O2 Sat by Pulse 100 99 100 Oximetry 06/19/15 06/19/15 06/19/15 00:00 01:00 02:00 Temperature 97.8 F Pulse Rate 68 59 L 62 Respiratory 20 20 24 Rate Blood Pressure 121/76 119/72 126/78 O2 Sat by Pulse 100 100 100 Oximetry 06/19/15 06/19/15 06/19/15 03:00 04:00 05:00 Temperature 100 F H Pulse Rate 58 L 60 53 L Respiratory 20 21 22 Rate Blood Pressure 114/75 136/81 102/62 O2 Sat by Pulse 100 100 100 Oximetry 06/19/15 06/19/15 06/19/15 06:00 07:00 08:00 Temperature 99.1 F Pulse Rate 58 L 69 60 Respiratory 20 23 16 Rate Blood Pressure 139/71 134/74 118/67 O2 Sat by Pulse 100 100 100 Oximetry 06/19/15 06/19/15 06/19/15 09:00 10:00 11:00 Temperature Pulse Rate 63 56 L 59 L Respiratory 16 20 20 Rate Blood Pressure 103/64 113/61 94/52 L O2 Sat by Pulse 100 100 100 Oximetry 06/19/15 11:25 Temperature Pulse Rate Respiratory Rate Blood Pressure 94/52 L O2 Sat by Pulse Oximetry Intake and Output (last 12 hours): Intake & Output 06/18/15 06/19/15 06/19/15 18:59 06:59 18:59 Intake Total 2190 2130 825 Output Total 1255 1925 840 Balance 935 205 -15 Weight 155 lb 6.814 oz Intake: Intake, IV Amount 1575 1650 625 Left Forearm 1475 1650 625 L FA #18 100 Oral 200 Tube Feeding 415 480 200 Output: Urine 1255 1925 840 Urethral (Yoo) 1255 1925 840 - Medications Medications: Current Medications Amiodarone HCl (Cordarone) 200 mg PO DAILY [facility] Last Admin: 06/19/15 10:12 Dose: 200 mg Aspirin (Aspirin) 325 mg PO DAILY [facility] Last Admin: 06/19/15 10:12 Dose: 325 mg Clopidogrel Bisulfate (Plavix) 75 mg PO DAILY [facility] Last Admin: 06/19/15 10:12 Dose: 75 mg Enalapril Maleate (Vasotec) 2.5 mg PO DAILY [facility] Last Admin: 06/19/15 11:25 Dose: Not Given Famotidine (Pepcid) 20 mg PO BID [facility] Last Admin: 06/19/15 10:12 Dose: 20 mg Fosphenytoin Sodium 100 mg/ (Dextrose) 52 mls @ 100 mls/hr IV Q8H [facility] Last Admin: 06/19/15 14:32 Dose: 100 mls/hr Piperacillin Sod/Tazobactam Sod (Zosyn 3.375 Gm Iv Premix) 50 mls @ 100 mls/hr IVPB Q8H [facility] Last Admin: 06/19/15 07:45 Dose: 100 mls/hr Sodium Chloride (Sodium Chloride 0.9%) 1,000 mls @ 125 mls/hr IV .Q8H [facility] Last Admin: 06/19/15 12:34 Dose: 125 mls/hr Vancomycin HCl 750 mg/ Sodium (Chloride) 250 mls @ 166.6 mls/hr IVPB Q24H [facility] Last Admin: 06/18/15 16:08 Dose: 166.6 mls/hr Polyethylene Glycol (Miralax) 17 gm PO DAILY [facility] Last Admin: 06/19/15 14:32 Dose: 17 gm Potassium Chloride (Potassium Chloride Oral Soln) 40 meq NG DAILY [facility] Last Admin: 06/19/15 10:12 Dose: 40 meq - Labs Labs (last 24 hours): Laboratory Results - last 24 hr 06/18/15 06/19/15 06/19/15 14:10 05:35 06:35 WBC 12.4 H RBC 3.75 L Hgb 11.3 L Hct 34.7 L MCV 92.5 MCH 30.2 MCHC 32.7 L RDW 14.2 Plt Count 160 MPV 9.5 Neut % (Auto) 85.4 H Lymph % (Auto) 5.5 L [place] % (Auto) 8.0 Eos % (Auto) 0.9 Baso % (Auto) 0.2 Neut # 10.6 H Lymph # 0.7 L [place] # 1.0 H Eos # 0.1 Baso # 0.0 Neutrophils % (Manual) 87 H Lymphocytes % (Manual) 6 L Monocytes % (Manual) 5 Eosinophils % (Manual) 2 Toxic Granulation Present Platelet Estimate Normal Hypochromasia (manual) Slight Poikilocytosis (manual Slight Anisocytosis (manual) Slight Ovalocytes Slight [place] Cells Slight pCO2 33.0 L pO2 103.0 H HCO3 25.7 ABG pH 7.500 H ABG Total CO2 26.7 ABG O2 Saturation 98.0 ABG Base Excess 2.8 A-a O2 Difference 141.0 Mechanical Rate 16.000 FiO2 40.000 Tidal Volume 450.000 Sodium 133 Potassium 3.5 L Chloride 103 Carbon Dioxide 23 Anion Gap 11 BUN 14 Creatinine 0.7 L Est GFR ( Amer) > 60 Est GFR (Non-Af Amer) > 60 Random Glucose 128 H Calcium 7.3 L Phosphorus 2.5 Magnesium 2.0 Total Bilirubin 0.5 AST 199 H D ALT 587 H D Alkaline Phosphatase 69 Total Protein 5.3 L Albumin 2.5 L Globulin 2.8 Albumin/Globulin Ratio 0.9 L Vancomycin Trough < 5.0 L Phenytoin 06/19/15 09:26 WBC RBC Hgb Hct MCV MCH MCHC RDW Plt Count MPV Neut % (Auto) Lymph % (Auto) [place] % (Auto) Eos % (Auto) Baso % (Auto) Neut # Lymph # [place] # Eos # Baso # Neutrophils % (Manual) Lymphocytes % (Manual) Monocytes % (Manual) Eosinophils % (Manual) Toxic Granulation Platelet Estimate Hypochromasia (manual) Poikilocytosis (manual Anisocytosis (manual) Ovalocytes [place] Cells pCO2 pO2 HCO3 ABG pH ABG Total CO2 ABG O2 Saturation ABG Base Excess A-a O2 Difference Mechanical Rate FiO2 Tidal Volume Sodium Potassium Chloride Carbon Dioxide Anion Gap BUN Creatinine Est GFR ( Amer) Est GFR (Non-Af Amer) Random Glucose Calcium Phosphorus Magnesium Total Bilirubin AST ALT Alkaline Phosphatase Total Protein Albumin Globulin Albumin/Globulin Ratio Vancomycin Trough Phenytoin 6.5 L
--- NOTE | 2015-06-19 16:50 | CP.CCUPN ---
<Yesenia Mayer - Last Filed: 06/19/15 17:13> CCU Subjective - Physician Review Events Since Last Encounter (Free Text): The patient was seen and examined at bedside this morning. He is vent dependent and unable to respond due to his brain injury. (FiO2=40%, PEEP=0, RR=16, LV=977 ) Per nursing decreased bowel movements so miralax 17gm PO daily was added. The family requested to talk to the Doctor and a family meeting was sat up by Doctor Kaplan. Gustabo Pak and patient's and daughter were present. The surgery resident was present to help translate due to their limited Nepalese. Doctor Eusebio was very clear and detailed in explaining patient's present medical condition and prognosis. They were told that unfortunately, this patient will never recover and that his condition will only get worse. Family was presented with burdens of mechanical ventilation and possible complications that come with it. Poor or not quality of life was emphasized. The daughter and the referred to their protestant and believes and clearly stated request to keep patient alive using all radical measures possible. They do no want extubation. They intend to transfer him to [place] on vent. support when medically stable. Family also reports lack of financial resources to pursue their intentions. Per surgery, the family agreed to trach and peg insertion after risks and benefits explained. Consent was signed. OR scheduled for tomorrow. NPO after midnight. Subjective (Free Text): CC: Code Heart Patient is a 64 yo M with unknown pmhx who was found unresponsive in driveway by EMS after fall that was witnessed by family. In the field, CPR was given, patient was in asystole and was shocked 3 times, given 1 dose of Epinephrine and started on an Amiodarone drip. In the ED, the patient was found to be in V Fib and was shocked once. He then converted to sinus tachy and given 5000 U of heparin and Versed. He was intubated and an NGT was placed. Afterwards, he was given 600 mg of Plavis and 325 mg of ASA. He was found to have a large gash on the R side of his head so he was taken for a Head CT, which showed on acute intracranial hemorrhage and then to the ship laborer. From Patient's History obtained by Bench Shear Operator from family: PMHx: unknown type of "heart trouble" that was diagnosed in [place] 15 years ago. no rx or therapy given at that time. He has not seen a physician in 15 years PSHx: Denied Soc: denied EtOH and tobacco Allergy: NKDA meds: none CCU Objective - Vital Signs / Intake & Output Vital Signs (Last 4 hours): Vital Signs Pulse Resp BP Pulse Ox 06/19/15 15:00 57 L 22 100 06/19/15 14:00 49 L 20 98/65 L 100 06/19/15 13:00 55 L 18 97/65 L 100 Intake and Output (Last 8hrs): Intake & Output 06/19/15 06/19/15 06/19/15 06:59 14:59 22:59 Intake Total 1420 1320 165 Output Total 1300 1085 Balance 120 235 165 Weight 155 lb 6.814 oz Intake: Intake, IV Amount 1100 1000 125 Left Forearm 1100 1000 125 Tube Feeding 320 320 40 Output: Urine 1300 1085 Urethral (Yoo) 1300 1085 - Physical Exam Head: Positive for: Normocephalic, Other (Laceration of head) Conjunctiva: Negative for: Injected, Icteric Respiratory/Chest: Positive for: Rhonchi. Negative for: Respiratory Distress, Accessory Muscle Use Cardiovascular: Positive for: Regular Rate and Rhythm, Normal S1, S2. Negative for: Murmurs, Rub, Gallop Abdomen: Positive for: Normal Bowel Sounds. Negative for: Tenderness, Distention Neurological: Positive for: Other (unresponsive) Skin: Positive for: Warm, Normal Color Psychiatric: Negative for: Alert, Oriented x 3 - Medications Active Medications: Active Medications Generic Name Dose Route Start Last Admin Trade Name Stefania PRN Reason Stop Dose Admin Amiodarone HCl 200 mg 06/15/15 10:06/19/15 10:12 Cordarone PO 200 mg DAILY JOO Administration Aspirin 325 mg 06/14/15 10:06/19/15 10:12 Aspirin PO 325 mg DAILY JOO Administration Clopidogrel Bisulfate 75 mg 06/14/15 10:06/19/15 10:12 Plavix PO 75 mg DAILY JOO Administration Enalapril Maleate 2.5 mg 06/14/15 10:00 06/19/15 11:25 Vasotec PO Not Given DAILY JOO Famotidine 20 mg 06/18/15 18:00 06/19/15 10:12 Pepcid PO 20 mg BID JOO Administration Fosphenytoin Sodium 100 mg/ 52 mls @ 100 mls/hr 06/14/15 06:45 06/19/15 14:32 Dextrose IV 100 mls/hr Q8H JOO Administration Piperacillin Sod/Tazobactam Sod 50 mls @ 100 mls/hr 06/14/15 16:00 06/19/15 07: 45 Zosyn 3.375 Gm Iv Premix IVPB 100 mls/hr Q8H JOO Administration Sodium Chloride 1,000 mls @ 125 mls/hr 06/14/15 14:45 06/19/15 12:34 Sodium Chloride 0.9% IV 125 mls/hr .Q8H JOO Administration Vancomycin HCl 750 mg/ Sodium 250 mls @ 166.6 mls/hr 06/14/15 16:00 06/18/15 16 :08 Chloride IVPB 166.6 mls/hr Q24H JOO Administration Polyethylene Glycol 17 gm 06/19/15 11:30 06/19/15 14:32 Miralax PO 17 gm DAILY JOO Administration Potassium Chloride 40 meq 06/16/15 10:00 06/19/15 10:12 Potassium Chloride Oral Soln NG 40 meq DAILY JOO Administration - Patient Studies Lab Studies: Microbiology Studies 06/14/15 14:55 Gram Stain - Final Blood TEST NOT PERFORMED Blood Culture - Preliminary NO GROWTH AFTER 4 DAYS 06/14/15 15:20 Gram Stain - Final Blood TEST NOT PERFORMED Blood Culture - Preliminary NO GROWTH AFTER 4 DAYS Lab Studies 06/19/15 06/19/15 06/19/15 Range/Units 09:26 06:35 05:35 WBC 12.4 H (4.8-10.8) K/uL RBC 3.75 L (4.40-5.90) Mil/uL Hgb 11.3 L (12.0-18.0) g/dL Hct 34.7 L (35.0-51.0) % MCV 92.5 (80.0-94.0) fL MCH 30.2 (27.0-31.0) pg MCHC 32.7 L (33.0-37.0) g/dL RDW 14.2 (11.5-14.5) % Plt Count 160 (130-400) K/uL MPV 9.5 (7.2-11.7) fL Neut % (Auto) 85.4 H (50.0-75.0) % Lymph % (Auto) 5.5 L (20.0-40.0) % [place] % (Auto) 8.0 (0.0-10.0) % Eos % (Auto) 0.9 (0.0-4.0) % Baso % (Auto) 0.2 (0.0-2.0) % Neut # 10.6 H (1.8-7.0) K/uL Lymph # 0.7 L (1.0-4.3) K/uL [place] # 1.0 H (0.0-0.8) K/uL Eos # 0.1 (0.0-0.7) K/uL Baso # 0.0 (0.0-0.2) K/uL Neutrophils % (Manual) 87 H (50-75) % Lymphocytes % (Manual) 6 L (20-40) % Monocytes % (Manual) 5 (0-10) % Eosinophils % (Manual) 2 (0-4) % Toxic Granulation Present Platelet Estimate Normal (NORMAL) Hypochromasia (manual) Slight Poikilocytosis (manual Slight Anisocytosis (manual) Slight Ovalocytes Slight Lily Cells Slight pCO2 33.0 L (35.0-45.0) mm/Hg pO2 103.0 H (80.0-90.0) mm/Hg HCO3 25.7 (22.0-26.0) mmol/L ABG pH 7.500 H (7.350-7.450) ABG Total CO2 26.7 mmol/L ABG O2 Saturation 98.0 % ABG Base Excess 2.8 mmol/L A-a O2 Difference 141.0 mm/Hg Mechanical Rate 16.000 FiO2 40.000 % Tidal Volume 450.000 Sodium 133 (132-148) mmol/L Potassium 3.5 L (3.6-5.0) mmol/L Chloride 103 (98-107) mmol/L Carbon Dioxide 23 (22-30) mmol/L Anion Gap 11 (10-20) BUN 14 (9-20) mg/dL Creatinine 0.7 L (0.8-1.5) mg/dL Est GFR ( Amer) > 60 Est GFR (Non-Af Amer) > 60 Random Glucose 128 H (75-110) mg/dL Calcium 7.3 L (8.4-10.2) mg/dL Phosphorus 2.5 (2.5-4.5) mg/dL Magnesium 2.0 (1.6-2.3) mg/dL Total Bilirubin 0.5 (0.2-1.3) mg/dL AST 199 H D (17-59) U/L ALT 587 H D (21-72) U/L Alkaline Phosphatase 69 (38-126) U/L Total Protein 5.3 L (6.3-8.2) g/dL Albumin 2.5 L (3.5-5.0) g/dL Globulin 2.8 (2.2-3.9) gm/dL Albumin/Globulin Ratio 0.9 L (1.0-2.1) Phenytoin 6.5 L (10-20) ug/mL Laboratory Results - last 24 hr 06/19/15 06/19/15 06/19/15 05:35 06:35 09:26 WBC 12.4 H RBC 3.75 L Hgb 11.3 L Hct 34.7 L MCV 92.5 MCH 30.2 MCHC 32.7 L RDW 14.2 Plt Count 160 MPV 9.5 Neut % (Auto) 85.4 H Lymph % (Auto) 5.5 L [place] % (Auto) 8.0 Eos % (Auto) 0.9 Baso % (Auto) 0.2 Neut # 10.6 H Lymph # 0.7 L [place] # 1.0 H Eos # 0.1 Baso # 0.0 Neutrophils % (Manual) 87 H Lymphocytes % (Manual) 6 L Monocytes % (Manual) 5 Eosinophils % (Manual) 2 Toxic Granulation Present Platelet Estimate Normal Hypochromasia (manual) Slight Poikilocytosis (manual Slight Anisocytosis (manual) Slight Ovalocytes Slight [place] Cells Slight pCO2 33.0 L pO2 103.0 H HCO3 25.7 ABG pH 7.500 H ABG Total CO2 26.7 ABG O2 Saturation 98.0 ABG Base Excess 2.8 A-a O2 Difference 141.0 Mechanical Rate 16.000 FiO2 40.000 Tidal Volume 450.000 Sodium 133 Potassium 3.5 L Chloride 103 Carbon Dioxide 23 Anion Gap 11 BUN 14 Creatinine 0.7 L Est GFR ( Amer) > 60 Est GFR (Non-Af Amer) > 60 Random Glucose 128 H Calcium 7.3 L Phosphorus 2.5 Magnesium 2.0 Total Bilirubin 0.5 AST 199 H D ALT 587 H D Alkaline Phosphatase 69 Total Protein 5.3 L Albumin 2.5 L Globulin 2.8 Albumin/Globulin Ratio 0.9 L Phenytoin 6.5 L EKG/Cardiology Studies: Cardiology / EKG Studies 06/13/15 20:54 ELECTROCARDIOGRAM Stat Comment: repeat Mode Of Transportation: BED Reason For Exam: cp bed 6 Review of Systems - Review of Systems Review of Systems: Unable to obtain. The patient is intubated and unresponsive due to brain injury. Critical Care Progress Note - Nutrition Nutrition: Nutrition Category Date Time Status NPO Diet [DIET] Diets 06/19/15 Dinner Active Assessment/Plan (1) Anoxic encephalopathy Current Visit: Yes Status: Acute Comment: Per surgery, the family agreed to trach and peg insertion after risks and benefits explained. Consent was signed. OR scheduled for tomorrow. NPO after midnight. Most likely due to cardiac arrest Family still wants full code. Intubated Unresponsive to painful stimuli Palliative care on case (2) Cardiac arrest Current Visit: Yes Status: Acute Comment: S/P V-Tach arrest Continue Amiodarone 200mg daily Cont ASA 325 mg po daily Cont Plavix 75 mg po daily Cont Enalapril 2.5 mg po daily Cont atenolol 12.5mg daily Monitor (3) STEMI (ST elevation myocardial infarction) Current Visit: Yes Status: Acute Comment: Cardiac cath on 06/13 with occluded RCA and left main Continue ASA 325mg PO daily Cont Plavix 75mg PO daily Cont atenolol 12.5mg pO daily Cont Vasotec 2.5mg PO daily (4) Respiratory failure Current Visit: Yes Status: Acute Comment: As before, no change. There is plan for PEG as well as traceostomy. (5) Seizures Current Visit: Yes Status: Acute Comment: Dr. Garcia on case-help appreciated likely secondary to anoxic injury Cont Fosphenytoin 100mg IVPB q8hrs Monitor (6) Prophylactic measure Current Visit: Yes Status: Acute Comment: Pepcid 20 mg IVP q12 SCD's Plavix Miralax <Zina Trevizo - Last Filed: 06/19/15 18:59> CCU Objective - Vital Signs / Intake & Output Vital Signs (Last 4 hours): Vital Signs Temp Pulse Resp BP Pulse Ox 06/19/15 18:00 52 L 18 104/75 100 06/19/15 17:00 53 L 24 110/66 100 06/19/15 16:00 98.3 F 56 L 23 132/74 100 06/19/15 15:00 57 L 22 100 Intake and Output (Last 8hrs): Intake & Output 06/19/15 06/19/15 06/19/15 06:59 14:59 22:59 Intake Total 1420 1320 1010 Output Total 1300 1085 210 Balance 120 235 800 Weight 155 lb 6.814 oz Intake: Intake, IV Amount 1100 1000 750 Left Forearm 1100 1000 750 Tube Feeding 320 320 160 Other 100 Output: Urine 1300 1085 210 Urethral (Yoo) 1300 1085 210 - Medications Active Medications: Active Medications Generic Name Dose Route Start Last Admin Trade Name Freq PRN Reason Stop Dose Admin Amiodarone HCl 200 mg 06/15/15 10:00 06/19/15 10:12 Cordarone PO 200 mg DAILY JOO Administration Aspirin 325 mg 06/14/15 10:00 06/19/15 10:12 Aspirin PO 325 mg DAILY JOO Administration Clopidogrel Bisulfate 75 mg 06/14/15 10:00 06/19/15 10:12 Plavix PO 75 mg DAILY JOO Administration Enalapril Maleate 2.5 mg 06/14/15 10:00 06/19/15 11:25 Vasotec PO Not Given DAILY JOO Famotidine 20 mg 06/18/15 18:00 06/19/15 17:34 Pepcid PO 20 mg BID JOO Administration Fosphenytoin Sodium 100 mg/ 52 mls @ 100 mls/hr 06/14/15 06:45 06/19/15 14:32 Dextrose IV 100 mls/hr Q8H JOO Administration Piperacillin Sod/Tazobactam Sod 50 mls @ 100 mls/hr 06/14/15 16:00 06/19/15 14: 00 Zosyn 3.375 Gm Iv Premix IVPB 100 mls/hr Q8H JOO Administration Sodium Chloride 1,000 mls @ 125 mls/hr 06/14/15 14:45 06/19/15 17:12 Sodium Chloride 0.9% IV Not Given .Q8H JOO Vancomycin HCl 750 mg/ Sodium 250 mls @ 166.6 mls/hr 06/14/15 16:00 06/19/15 14 :30 Chloride IVPB 166.6 mls/hr Q24H JOO Administration Polyethylene Glycol 17 gm 06/19/15 11:30 06/19/15 14:32 Miralax PO 17 gm DAILY JOO Administration Potassium Chloride 40 meq 06/16/15 10:00 06/19/15 10:12 Potassium Chloride Oral Soln NG 40 meq DAILY JOO Administration - Patient Studies Lab Studies: Microbiology Studies 06/14/15 14:55 Gram Stain - Final Blood TEST NOT PERFORMED Blood Culture - Preliminary NO GROWTH AFTER 4 DAYS 06/14/15 15:20 Gram Stain - Final Blood TEST NOT PERFORMED Blood Culture - Preliminary NO GROWTH AFTER 4 DAYS Lab Studies 06/19/15 06/19/15 06/19/15 Range/Units 16:45 09:26 06:35 WBC 12.4 H (4.8-10.8) K/uL RBC 3.75 L (4.40-5.90) Mil/uL Hgb 11.3 L (12.0-18.0) g/dL Hct 34.7 L (35.0-51.0) % MCV 92.5 (80.0-94.0) fL MCH 30.2 (27.0-31.0) pg MCHC 32.7 L (33.0-37.0) g/dL RDW 14.2 (11.5-14.5) % Plt Count 160 (130-400) K/uL MPV 9.5 (7.2-11.7) fL Neut % (Auto) 85.4 H (50.0-75.0) % Lymph % (Auto) 5.5 L (20.0-40.0) % [place] % (Auto) 8.0 (0.0-10.0) % Eos % (Auto) 0.9 (0.0-4.0) % Baso % (Auto) 0.2 (0.0-2.0) % Neut # 10.6 H (1.8-7.0) K/uL Lymph # 0.7 L (1.0-4.3) K/uL [place] # 1.0 H (0.0-0.8) K/uL Eos # 0.1 (0.0-0.7) K/uL Baso # 0.0 (0.0-0.2) K/uL Neutrophils % (Manual) 87 H (50-75) % Lymphocytes % (Manual) 6 L (20-40) % Monocytes % (Manual) 5 (0-10) % Eosinophils % (Manual) 2 (0-4) % Toxic Granulation Present Platelet Estimate Normal (NORMAL) Hypochromasia (manual) Slight Poikilocytosis (manual Slight Anisocytosis (manual) Slight Ovalocytes Slight [place] Cells Slight pCO2 (35.0-45.0) mm/Hg pO2 (80.0-90.0) mm/Hg HCO3 (22.0-26.0) mmol/L ABG pH (7.350-7.450) ABG Total CO2 mmol/L ABG O2 Saturation % ABG Base Excess mmol/L A-a O2 Difference mm/Hg Mechanical Rate FiO2 % Tidal Volume Sodium 133 (132-148) mmol/L Potassium 3.5 L (3.6-5.0) mmol/L Chloride 103 (98-107) mmol/L Carbon Dioxide 23 (22-30) mmol/L Anion Gap 11 (10-20) BUN 14 (9-20) mg/dL Creatinine 0.7 L (0.8-1.5) mg/dL Est GFR ( Amer) > 60 Est GFR (Non-Af Amer) > 60 Random Glucose 128 H (75-110) mg/dL Calcium 7.3 L (8.4-10.2) mg/dL Phosphorus 2.5 (2.5-4.5) mg/dL Magnesium 2.0 (1.6-2.3) mg/dL Total Bilirubin 0.5 (0.2-1.3) mg/dL AST 199 H D (17-59) U/L ALT 587 H D (21-72) U/L Alkaline Phosphatase 69 (38-126) U/L Total Protein 5.3 L (6.3-8.2) g/dL Albumin 2.5 L (3.5-5.0) g/dL Globulin 2.8 (2.2-3.9) gm/dL Albumin/Globulin Ratio 0.9 L (1.0-2.1) Phenytoin 6.5 L (10-20) ug/mL Blood Type O POSITIVE Antibody Screen Negative 06/19/15 Range/Units 05:35 WBC (4.8-10.8) K/uL RBC (4.40-5.90) Mil/uL Hgb (12.0-18.0) g/dL Hct (35.0-51.0) % MCV (80.0-94.0) fL MCH (27.0-31.0) pg MCHC (33.0-37.0) g/dL RDW (11.5-14.5) % Plt Count (130-400) K/uL MPV (7.2-11.7) fL Neut % (Auto) (50.0-75.0) % Lymph % (Auto) (20.0-40.0) % [place] % (Auto) (0.0-10.0) % Eos % (Auto) (0.0-4.0) % Baso % (Auto) (0.0-2.0) % Neut # (1.8-7.0) K/uL Lymph # (1.0-4.3) K/uL [place] # (0.0-0.8) K/uL Eos # (0.0-0.7) K/uL Baso # (0.0-0.2) K/uL Neutrophils % (Manual) (50-75) % Lymphocytes % (Manual) (20-40) % Monocytes % (Manual) (0-10) % Eosinophils % (Manual) (0-4) % Toxic Granulation Platelet Estimate (NORMAL) Hypochromasia (manual) Poikilocytosis (manual Anisocytosis (manual) Ovalocytes [place] Cells pCO2 33.0 L (35.0-45.0) mm/Hg pO2 103.0 H (80.0-90.0) mm/Hg HCO3 25.7 (22.0-26.0) mmol/L ABG pH 7.500 H (7.350-7.450) ABG Total CO2 26.7 mmol/L ABG O2 Saturation 98.0 % ABG Base Excess 2.8 mmol/L A-a O2 Difference 141.0 mm/Hg Mechanical Rate 16.000 FiO2 40.000 % Tidal Volume 450.000 Sodium (132-148) mmol/L Potassium (3.6-5.0) mmol/L Chloride (98-107) mmol/L Carbon Dioxide (22-30) mmol/L Anion Gap (10-20) BUN (9-20) mg/dL Creatinine (0.8-1.5) mg/dL Est GFR ( Amer) Est GFR (Non-Af Amer) Random Glucose (75-110) mg/dL Calcium (8.4-10.2) mg/dL Phosphorus (2.5-4.5) mg/dL Magnesium (1.6-2.3) mg/dL Total Bilirubin (0.2-1.3) mg/dL AST (17-59) U/L ALT (21-72) U/L Alkaline Phosphatase (38-126) U/L Total Protein (6.3-8.2) g/dL Albumin (3.5-5.0) g/dL Globulin (2.2-3.9) gm/dL Albumin/Globulin Ratio (1.0-2.1) Phenytoin (10-20) ug/mL Blood Type Antibody Screen Laboratory Results - last 24 hr 06/19/15 06/19/15 06/19/15 05:35 06:35 09:26 WBC 12.4 H RBC 3.75 L Hgb 11.3 L Hct 34.7 L MCV 92.5 MCH 30.2 MCHC 32.7 L RDW 14.2 Plt Count 160 MPV 9.5 Neut % (Auto) 85.4 H Lymph % (Auto) 5.5 L [place] % (Auto) 8.0 Eos % (Auto) 0.9 Baso % (Auto) 0.2 Neut # 10.6 H Lymph # 0.7 L [place] # 1.0 H Eos # 0.1 Baso # 0.0 Neutrophils % (Manual) 87 H Lymphocytes % (Manual) 6 L Monocytes % (Manual) 5 Eosinophils % (Manual) 2 Toxic Granulation Present Platelet Estimate Normal Hypochromasia (manual) Slight Poikilocytosis (manual Slight Anisocytosis (manual) Slight Ovalocytes Slight Lily Cells Slight pCO2 33.0 L pO2 103.0 H HCO3 25.7 ABG pH 7.500 H ABG Total CO2 26.7 ABG O2 Saturation 98.0 ABG Base Excess 2.8 A-a O2 Difference 141.0 Mechanical Rate 16.000 FiO2 40.000 Tidal Volume 450.000 Sodium 133 Potassium 3.5 L Chloride 103 Carbon Dioxide 23 Anion Gap 11 BUN 14 Creatinine 0.7 L Est GFR ( Amer) > 60 Est GFR (Non-Af Amer) > 60 Random Glucose 128 H Calcium 7.3 L Phosphorus 2.5 Magnesium 2.0 Total Bilirubin 0.5 AST 199 H D ALT 587 H D Alkaline Phosphatase 69 Total Protein 5.3 L Albumin 2.5 L Globulin 2.8 Albumin/Globulin Ratio 0.9 L Phenytoin 6.5 L Blood Type Antibody Screen 06/19/15 16:45 WBC RBC Hgb Hct MCV MCH MCHC RDW Plt Count MPV Neut % (Auto) Lymph % (Auto) [place] % (Auto) Eos % (Auto) Baso % (Auto) Neut # Lymph # [place] # Eos # Baso # Neutrophils % (Manual) Lymphocytes % (Manual) Monocytes % (Manual) Eosinophils % (Manual) Toxic Granulation Platelet Estimate Hypochromasia (manual) Poikilocytosis (manual Anisocytosis (manual) Ovalocytes [place] Cells pCO2 pO2 HCO3 ABG pH ABG Total CO2 ABG O2 Saturation ABG Base Excess A-a O2 Difference Mechanical Rate FiO2 Tidal Volume Sodium Potassium Chloride Carbon Dioxide Anion Gap BUN Creatinine Est GFR ( Amer) Est GFR (Non-Af Amer) Random Glucose Calcium Phosphorus Magnesium Total Bilirubin AST ALT Alkaline Phosphatase Total Protein Albumin Globulin Albumin/Globulin Ratio Phenytoin Blood Type O POSITIVE Antibody Screen Negative EKG/Cardiology Studies: Cardiology / EKG Studies 06/13/15 20:54 ELECTROCARDIOGRAM Stat Comment: repeat Mode Of Transportation: BED Reason For Exam: cp bed 6 Critical Care Progress Note - Nutrition Nutrition: Nutrition Category Date Time Status NPO Diet [DIET] Diets 06/19/15 Dinner Active Attending/Attestation - Attestation I have personally seen and examined this patient.: Yes I have fully participated in the care of the patient.: Yes I have reviewed all pertinent clinical information: Yes Notes (Text): 06/19/15 18:54 Patient seen and examined. His neurological exam has not changed since yesterday , no gag, no cough, no reponse to voice of pain. Has corneals, dolls eyes. wbc count slight decrease, T max 100.5 in last 24 hours. Very long conversationwith family about their expectation, had a clinical case manager in Mandarin for the mother who does not speak Nepalese. They have decided to go ahead with peg and trach since they want to take care of him until the end. Will be done in am. Spoke to vp digital marketing social media and crm and palliative care. They believe an arrangement to transfer his father to [place] can take place. I have answered all their questions as much as possible.
[2015-06-20] MEDS: Piperacill/Tazo 3.375gm in Dex 50 ML IVPB SCH ×3 (00:15→17:07)
[2015-06-20] MEDS: Sodium Chloride 0.9% 1,000 ML IV SCH ×3 (00:15→17:04)
[2015-06-20 05:50] LABS: ARTERIAL BLOOD GAS HCO3 25.3 mmol/L (22.0-26.0); ARTERIAL BLOOD GAS TCO2 26.3 mmol/L
[2015-06-20] MEDS: Fosphenytoin 100 MG in Dextrose 5% In Water 50 ML IV SCH ×2 (05:58→19:41)
[2015-06-20 06:23] LABS: BASO % 0.4 % (0.0-2.0); EOS # 0.3 K/uL (0.0-0.7); EOS % 2.5 % (0.0-4.0); LYMPH # 0.7 K/uL (1.0-4.3); LYMPH % 5.9 % (20.0-40.0); MEAN CELL VOLUME 92.3 fL (80.0-94.0); MEAN CORPUSCULAR HEMOGLOBIN 30.2 pg (27.0-31.0); MEAN CORPUSCULAR HGB CONC 32.7 g/dL (33.0-37.0); MONO # 1.2 K/uL (0.0-0.8); MONO % 9.6 % (0.0-10.0); NEUT % 81.6 % (50.0-75.0); PLATELET COUNT 206 K/uL (130-400); RBC 3.63 Mil/uL (4.40-5.90); RED CELL DISTRIBUTION WIDTH 14.1 % (11.5-14.5); WHITE BLOOD COUNT 12.3 K/uL (4.8-10.8)
[2015-06-20 06:43] LABS: ALBUMIN 2.5 g/dL (3.5-5.0)
[2015-06-20 06:44] LABS: PROTHROMBIN TIME 10.9 SECONDS (9.7-12.2)
[2015-06-20 06:45] LABS: GFR NON-AFRICAN AMERICAN > 60
[2015-06-20 06:46] LABS: ALT/SGPT 424 U/L (21-72); AST/SGOT 153 U/L (17-59); BLOOD UREA NITROGEN 11 mg/dL (9-20)
[2015-06-20 06:47] LABS: CALCIUM 7.6 mg/dL (8.4-10.2)
[2015-06-20 06:52] LABS: ALB/GLOB RATIO 0.8 (1.0-2.1)
[2015-06-20 08:03] LABS: FUNCTIONING PLTS 76 K/uL; PLT BASE COUNT 206 K/uL; PLT(ADP) 130 K/uL
[2015-06-20 08:20] LABS: LYMPHOCYTE 3 % (20-40); MONOCYTE 12 % (0-10); NEUTROPHIL 85 % (50-75); PLATELET ESTIMATE NORMAL (NORMAL); TOTAL CELLS COUNTED 100
[2015-06-20 08:21] LABS: ANISOCYTOSIS SLIGHT; HYPOCHROMIC SLIGHT; LARGE PLATELETS PRESENT; OVALOCYTES SLIGHT; POIKILOCYTOSIS SLIGHT; TOXIC GRANULATION PRESENT
--- NOTE | 2015-06-20 09:01 | PN ---
DATE: 06/20/2015 NEUROLOGICAL PROBLEM: Anoxic encephalopathy. VITAL SIGNS: Blood pressure 109/71, pulse rate 66, respiratory rate 21 on vent. The patient's status remained comatose. Eyes are closed. Pupils are reactive to light. Coronary reflex is sluggish. He does not have any focal spontaneous movement of his upper and lower extremities. Areflexic. Plantars are mute. 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 RECOMMENDATIONS: 1. Repeat CT of the head. 2. Dilantin level subtherapeutic. The patient was not showing any seizure activities, and electroencephalogram does not show any seizure activities at this point. Considering his abnormal liver function test, Dilantin is on hold, and I would continue to observe him. The patient will be followed closely with you. The patient's condition also discussed with the pattern weaver. Dennis Garcia MD cc: [id number] TT: 06/20/2015 09:01:28 jn MTDD
--- NOTE | 2015-06-20 09:13 | CT ---
PROCEDURE: CT HEAD WITHOUT CONTRAST. HISTORY: stroke Vs Bleed COMPARISON: None available. TECHNIQUE: Axial computed tomography images were obtained through the head/brain without intravenous contrast. Radiation dose: Total exam DLP = 1417.40 mGy-cm. FINDINGS: HEMORRHAGE: No intracranial hemorrhage. BRAIN: Diffuse loss of barker-white matter differentiation consistent with global hypoxic change. Edema with loss of sulci globally around the cerebral cortex. Evolving extensive right basal ganglia infarct extending cephalad into the chery radiata. There is some decrease in size of the 3rd and lateral ventricles when compared to the prior examination of 06/14/2015. There is no midline shift. There is no evidence of intracranial hemorrhage. The cerebellum is unremarkable. There is no evidence of downward herniation. The basal cisterns are preserved. VENTRICLES: As above CALVARIUM: Unremarkable. PARANASAL SINUSES: Chronic ethmoid, sphenoid and right maxillary sinusitis. MASTOID AIR CELLS: Unremarkable as visualized. No inflammatory changes. OTHER FINDINGS: None. IMPRESSION: Global ischemia. Diffuse loss of barker white matter differentiation. This is most likely the result of an anoxic event such as cardiac arrest. Right basal ganglia infarct extending to right gore radiata. No evidence of downward herniation or midline shift.
[2015-06-20] MEDS: Potassium Chloride 20 mEq/15 ml LIQ UD NG SCH (10:43)
[2015-06-20] MEDS: POLYETHYLENE GLYCOL 3350 17 GM/Dose PACKET PO SCH (10:43)
--- NOTE | 2015-06-20 10:49 | CP.CCUPN ---
<Yesenia Mayer - Last Filed: 06/20/15 14:20> CCU Subjective - Physician Review Events Since Last Encounter (Free Text): Patient seen and examined at bedside today. He is intubated and dependent on the MV (FiO2 = 40%, PEEP=0, PH=934, RR=16). Due to anoxic brain injury he is not able to be weaned from the vent. Patient for PEG and Trach procedures today with Dr. Chan. The patient had a witnessed seizure today in the ICU. Ativan 2mg stat dose Fosphenytoin ordered 500 STAT, [address] (06/20) - Global ischemia. Diffuse loss of lester white matter differentiation. This is most likely the results of an anoxic event such as cardiac arrest. 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 No evidence of downward herniation or midline shift. Chest X ray (06/20) - No interval change. 06/20/15 14:20 Subjective (Free Text): CC: Code Heart Patient is a 64 yo M with unknown pmhx who was found unresponsive in driveway by EMS after fall that was witnessed by family. In the field, CPR was given, patient was in asystole and was shocked 3 times, given 1 dose of Epinephrine and started on an Amiodarone drip. In the ED, the patient was found to be in V Fib and was shocked once. He then converted to sinus tachy and given 5000 U of heparin and Versed. He was intubated and an NGT was placed. Afterwards, he was given 600 mg of Plavis and 325 mg of ASA. He was found to have a large gash on the R side of his head so he was taken for a Head CT, which showed on acute intracranial hemorrhage and then to the [employer]. From Patient's History obtained by [employer] from family: PMHx: unknown type of "heart trouble" that was diagnosed in [place] 15 years ago. no rx or therapy given at that time. He has not seen a physician in 15 years PSHx: Denied Soc: denied EtOH and tobacco Allergy: NKDA meds: none CCU Objective - Vital Signs / Intake & Output Vital Signs (Last 4 hours): Vital Signs Temp Pulse Resp BP Pulse Ox 06/20/15 10:00 63 22 105/63 100 07/29/15 09:00 68 21 136/79 100 06/20/15 08:00 99.5 F 66 22 141/79 100 06/20/15 07:00 66 21 109/71 100 Intake and Output (Last 8hrs): Intake & Output 06/19/15 06/20/15 06/20/15 22:59 06:59 14:59 Intake Total 1720 1230 125 Output Total 505 725 100 Balance 1215 505 25 Intake: Intake, IV Amount 1300 1100 125 Left Forearm 1300 1100 125 Tube Feeding 320 80 Other 100 50 Output: Urine 505 725 100 Urethral (Yoo) 505 725 100 - Physical Exam Head: Positive for: Normocephalic, Other (Laceration of head) Pupils: Positive for: Sluggish, Other Conjunctiva: Negative for: Injected, Icteric Respiratory/Chest: Negative for: Respiratory Distress, Accessory Muscle Use, Wheezes, Rales Cardiovascular: Positive for: Regular Rate and Rhythm, Normal S1, S2. Negative for: Murmurs, Rub, Gallop Abdomen: Positive for: Normal Bowel Sounds. Negative for: Tenderness, Distention Upper Extremity: Positive for: Edema, NORMAL PULSES Lower Extremity: Positive for: Normal Inspection, NORMAL PULSES Neurological: Positive for: Other (unresponsive). Negative for: Speech Normal Skin: Positive for: Warm, Normal Color Psychiatric: Negative for: Alert, Oriented x 3 - Medications Active Medications: Active Medications Generic Name Dose Route Start Last Admin Trade Name Freq PRN Reason Stop Dose Admin Amiodarone HCl 200 mg 06/15/15 10:00 06/19/15 10:12 Cordarone PO 200 mg DAILY JOO Administration Aspirin 325 mg 06/14/15 10:06/19/15 10:12 Aspirin PO 325 mg DAILY JOO Administration Clopidogrel Bisulfate 75 mg 06/14/15 10:00 06/19/15 10:12 Plavix PO 75 mg DAILY JOO Administration Enalapril Maleate 2.5 mg 06/14/15 10:00 06/19/15 11:25 Vasotec PO Not Given DAILY JOO Famotidine 20 mg 06/18/15 18:00 06/19/15 17:34 Pepcid PO 20 mg BID JOO Administration Piperacillin Sod/Tazobactam Sod 50 mls @ 100 mls/hr 06/14/15 16:00 06/20/15 00: 15 Zosyn 3.375 Gm Iv Premix IVPB 100 mls/hr Q8H JOO Administration Sodium Chloride 1,000 mls @ 125 mls/hr 06/14/15 14:45 06/20/15 06:47 Sodium Chloride 0.9% IV 125 mls/hr .Q8H JOO Administration Vancomycin HCl 750 mg/ Sodium 250 mls @ 166.6 mls/hr 06/14/15 16:00 06/19/15 14 :30 Chloride IVPB 166.6 mls/hr Q24H JOO Administration Polyethylene Glycol 17 gm 06/19/15 11:30 06/19/15 14:32 Miralax PO 17 gm DAILY JOO Administration Potassium Chloride 40 meq 06/16/15 10:00 06/19/15 10:12 Potassium Chloride Oral Soln NG 40 meq DAILY JOO Administration - Patient Studies Lab Studies: Microbiology Studies 06/14/15 14:55 Gram Stain - Final Blood TEST NOT PERFORMED Blood Culture - Preliminary NO GROWTH AFTER 4 DAYS 06/14/15 15:20 Gram Stain - Final Blood TEST NOT PERFORMED Blood Culture - Preliminary NO GROWTH AFTER 4 DAYS Lab Studies 06/20/15 06/20/15 06/20/15 Range/Units 07:35 06:15 05:34 WBC 12.3 H (4.8-10.8) K/uL RBC 3.63 L (4.40-5.90) Mil/uL Hgb 11.0 L (12.0-18.0) g/dL Hct 33.6 L (35.0-51.0) % MCV 92.3 (80.0-94.0) fL MCH 30.2 (27.0-31.0) pg MCHC 32.7 L (33.0-37.0) g/dL RDW 14.1 (11.5-14.5) % Plt Count 206 (130-400) K/uL MPV 9.0 (7.2-11.7) fL Neut % (Auto) 81.6 H (50.0-75.0) % Lymph % (Auto) 5.9 L (20.0-40.0) % [place] % (Auto) 9.6 (0.0-10.0) % Eos % (Auto) 2.5 (0.0-4.0) % Baso % (Auto) 0.4 (0.0-2.0) % Neut # 10.0 H (1.8-7.0) K/uL Lymph # 0.7 L (1.0-4.3) K/uL [place] # 1.2 H (0.0-0.8) K/uL Eos # 0.3 (0.0-0.7) K/uL Baso # 0.0 (0.0-0.2) K/uL Neutrophils % (Manual) 85 H (50-75) % Lymphocytes % (Manual) 3 L (20-40) % Monocytes % (Manual) 12 H (0-10) % Toxic Granulation Present Platelet Estimate Normal (NORMAL) Large Platelets Present Hypochromasia (manual) Slight Poikilocytosis (manual Slight Anisocytosis (manual) Slight Ovalocytes Slight PT 10.9 (9.7-12.2) SECONDS INR 1.0 PTT 24 (21-34) SECONDS Plt Function Assay 76 K/uL pCO2 31.0 L (35.0-45.0) mm/Hg pO2 155.0 H (80.0-90.0) mm/Hg HCO3 25.3 (22.0-26.0) mmol/L ABG pH 7.520 H (7.350-7.450) ABG Total CO2 26.3 mmol/L ABG O2 Saturation 100.0 % ABG Base Excess 2.9 mmol/L A-a O2 Difference 91.0 mm/Hg FiO2 40.000 % Sodium 137 (132-148) mmol/L Potassium 3.6 (3.6-5.0) mmol/L Chloride 109 H (98-107) mmol/L Carbon Dioxide 24 (22-30) mmol/L Anion Gap 8 L (10-20) BUN 11 (9-20) mg/dL Creatinine 0.7 L (0.8-1.5) mg/dL Est GFR ( Amer) > 60 Est GFR (Non-Af Amer) > 60 Random Glucose 109 (75-110) mg/dL Calcium 7.6 L (8.4-10.2) mg/dL Phosphorus 2.7 (2.5-4.5) mg/dL Magnesium 2.1 (1.6-2.3) mg/dL Total Bilirubin 0.5 (0.2-1.3) mg/dL AST 153 H D (17-59) U/L ALT 424 H D (21-72) U/L Alkaline Phosphatase 72 (38-126) U/L Total Protein 5.5 L (6.3-8.2) g/dL Albumin 2.5 L (3.5-5.0) g/dL Globulin 3.0 (2.2-3.9) gm/dL Albumin/Globulin Ratio 0.8 L (1.0-2.1) Blood Type Antibody Screen 06/19/15 Range/Units 16:45 WBC (4.8-10.8) K/uL RBC (4.40-5.90) Mil/uL Hgb (12.0-18.0) g/dL Hct (35.0-51.0) % MCV (80.0-94.0) fL MCH (27.0-31.0) pg MCHC (33.0-37.0) g/dL RDW (11.5-14.5) % Plt Count (130-400) K/uL MPV (7.2-11.7) fL Neut % (Auto) (50.0-75.0) % Lymph % (Auto) (20.0-40.0) % [place] % (Auto) (0.0-10.0) % Eos % (Auto) (0.0-4.0) % Baso % (Auto) (0.0-2.0) % Neut # (1.8-7.0) K/uL Lymph # (1.0-4.3) K/uL [place] # (0.0-0.8) K/uL Eos # (0.0-0.7) K/uL Baso # (0.0-0.2) K/uL Neutrophils % (Manual) (50-75) % Lymphocytes % (Manual) (20-40) % Monocytes % (Manual) (0-10) % Toxic Granulation Platelet Estimate (NORMAL) Large Platelets Hypochromasia (manual) Poikilocytosis (manual Anisocytosis (manual) Ovalocytes PT (9.7-12.2) SECONDS INR PTT (21-34) SECONDS Plt Function Assay K/uL pCO2 (35.0-45.0) mm/Hg pO2 (80.0-90.0) mm/Hg HCO3 (22.0-26.0) mmol/L ABG pH (7.350-7.450) ABG Total CO2 mmol/L ABG O2 Saturation % ABG Base Excess mmol/L A-a O2 Difference mm/Hg FiO2 % Sodium (132-148) mmol/L Potassium (3.6-5.0) mmol/L Chloride (98-107) mmol/L Carbon Dioxide (22-30) mmol/L Anion Gap (10-20) BUN (9-20) mg/dL Creatinine (0.8-1.5) mg/dL Est GFR ( Amer) Est GFR (Non-Af Amer) Random Glucose (75-110) mg/dL Calcium (8.4-10.2) mg/dL Phosphorus (2.5-4.5) mg/dL Magnesium (1.6-2.3) mg/dL Total Bilirubin (0.2-1.3) mg/dL AST (17-59) U/L ALT (21-72) U/L Alkaline Phosphatase (38-126) U/L Total Protein (6.3-8.2) g/dL Albumin (3.5-5.0) g/dL Globulin (2.2-3.9) gm/dL Albumin/Globulin Ratio (1.0-2.1) Blood Type O POSITIVE Antibody Screen Negative Laboratory Results - last 24 hr 06/19/15 06/20/15 06/20/15 16:45 05:34 06:15 WBC 12.3 H RBC 3.63 L Hgb 11.0 L Hct 33.6 L MCV 92.3 MCH 30.2 MCHC 32.7 L RDW 14.1 Plt Count 206 MPV 9.0 Neut % (Auto) 81.6 H Lymph % (Auto) 5.9 L [place] % (Auto) 9.6 Eos % (Auto) 2.5 Baso % (Auto) 0.4 Neut # 10.0 H Lymph # 0.7 L [place] # 1.2 H Eos # 0.3 Baso # 0.0 Neutrophils % (Manual) 85 H Lymphocytes % (Manual) 3 L Monocytes % (Manual) 12 H Toxic Granulation Present Platelet Estimate Normal Large Platelets Present Hypochromasia (manual) Slight Poikilocytosis (manual Slight Anisocytosis (manual) Slight Ovalocytes Slight PT 10.9 INR 1.0 PTT 24 Plt Function Assay pCO2 31.0 L pO2 155.0 H HCO3 25.3 ABG pH 7.520 H ABG Total CO2 26.3 ABG O2 Saturation 100.0 ABG Base Excess 2.9 A-a O2 Difference 91.0 FiO2 40.000 Sodium 137 Potassium 3.6 Chloride 109 H Carbon Dioxide 24 Anion Gap 8 L BUN 11 Creatinine 0.7 L Est GFR ( Amer) > 60 Est GFR (Non-Af Amer) > 60 Random Glucose 109 Calcium 7.6 L Phosphorus 2.7 Magnesium 2.1 Total Bilirubin 0.5 AST 153 H D ALT 424 H D Alkaline Phosphatase 72 Total Protein 5.5 L Albumin 2.5 L Globulin 3.0 Albumin/Globulin Ratio 0.8 L Blood Type O POSITIVE Antibody Screen Negative 06/20/15 07:35 WBC RBC Hgb Hct MCV MCH MCHC RDW Plt Count MPV Neut % (Auto) Lymph % (Auto) [place] % (Auto) Eos % (Auto) Baso % (Auto) Neut # Lymph # [place] # Eos # Baso # Neutrophils % (Manual) Lymphocytes % (Manual) Monocytes % (Manual) Toxic Granulation Platelet Estimate Large Platelets Hypochromasia (manual) Poikilocytosis (manual Anisocytosis (manual) Ovalocytes PT INR PTT Plt Function Assay 76 pCO2 pO2 HCO3 ABG pH ABG Total CO2 ABG O2 Saturation ABG Base Excess A-a O2 Difference FiO2 Sodium Potassium Chloride Carbon Dioxide Anion Gap BUN Creatinine Est GFR ( Amer) Est GFR (Non-Af Amer) Random Glucose Calcium Phosphorus Magnesium Total Bilirubin AST ALT Alkaline Phosphatase Total Protein Albumin Globulin Albumin/Globulin Ratio Blood Type Antibody Screen EKG/Cardiology Studies: Cardiology / EKG Studies 06/13/15 20:54 ELECTROCARDIOGRAM Stat Comment: repeat Mode Of Transportation: BED Reason For Exam: bed 6 Review of Systems - Review of Systems Review of Systems: Unable to obtain. The patient is intubated. Unresponsive due to anoxic brain injury. Critical Care Progress Note - Nutrition Nutrition: Nutrition Category Date Time Status NPO Diet [DIET] Diets 06/19/15 Dinner Active Assessment/Plan (1) Anoxic encephalopathy Current Visit: Yes Status: Acute Comment: Trach and Peg insertaion today. Head CT (06/20) - Global ischemia. Diffuse loss of lester white matter differentiation. This is most likely the results of an anoxic event such as cardiac arrest. 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 No evidence of downward herniation or midline shift. Most likely due to cardiac arrest Family still wants full code. Intubated Unresponsive to painful stimuli Palliative care on case (2) Cardiac arrest Current Visit: Yes Status: Acute Comment: S/P V-Tach arrest Continue Amiodarone 200mg daily Cont ASA 325 mg po daily Cont Plavix 75 mg po daily Cont Enalapril 2.5 mg po daily Cont atenolol 12.5mg daily Monitor (3) STEMI (ST elevation myocardial infarction) Current Visit: Yes Status: Acute Comment: Cardiac cath on 06/13 with occluded RCA and left main Continue ASA 325mg PO daily Cont Plavix 75mg PO daily Cont atenolol 12.5mg pO daily Cont Vasotec 2.5mg PO daily (4) Respiratory failure Current Visit: Yes Status: Acute Comment: Trach and PEG today with dr. Chan (5) Seizures Current Visit: Yes Status: Acute Comment: Dr. Garcia on case-help appreciated likely secondary to anoxic injury Fosphenytoin 100mg IVP Q8 + 500mg IVP STAT Ativan 2mg stat dose Monitor (6) Prophylactic measure Current Visit: Yes Status: Acute Comment: Pepcid 20 mg IVP q12 SCD's Plavix Miralax <Jonathan Salgado S - Last Filed: 06/20/15 15:50> CCU Objective - Vital Signs / Intake & Output Vital Signs (Last 4 hours): Vital Signs Temp Pulse Resp BP Pulse Ox 06/20/15 15:00 18 L 20 108/66 100 06/20/15 14:50 18 L 20 100/62 100 06/20/15 14:35 52 L 20 97/62 L 100 06/20/15 14:20 54 L 18 96/62 L 100 06/20/15 14:05 56 L 20 99/60 L 100 06/20/15 14:00 97.6 F 54 L 22 96/60 L 100 06/20/15 12:00 98.5 F 62 19 113/70 100 Intake and Output (Last 8hrs): Intake & Output 06/20/15 06/20/15 06/20/15 06:59 14:59 22:59 Intake Total 1230 775 Output Total 725 1225 50 Balance 505 -450 -50 Weight 156 lb 8.451 oz Intake: Intake, IV Amount 1100 675 Left Forearm 1100 675 Oral 100 Tube Feeding 80 Other 50 Output: Urine 725 1225 50 Urethral (Yoo) 725 1225 50 - Medications Active Medications: Active Medications Generic Name Dose Route Start Last Admin Trade Name Freq PRN Reason Stop Dose Admin Amiodarone HCl 200 mg 06/15/15 10:00 06/20/15 10:43 Cordarone PO 200 mg DAILY JOO Administration Aspirin 325 mg 06/14/15 10:00 06/19/15 10:12 Aspirin PO 325 mg DAILY JOO Administration Clopidogrel Bisulfate 75 mg 06/14/15 10:00 06/19/15 10:12 Plavix PO 75 mg DAILY JOO Administration Enalapril Maleate 2.5 mg 06/14/15 10:00 06/20/15 10:43 Vasotec PO 2.5 mg DAILY JOO Administration Famotidine 20 mg 06/18/15 18:00 06/20/15 10:43 Pepcid PO 20 mg BID JOO Administration Piperacillin Sod/Tazobactam Sod 50 mls @ 100 mls/hr 06/14/15 16:00 06/20/15 10: 30 Zosyn 3.375 Gm Iv Premix IVPB 100 mls/hr Q8H JOO Administration Sodium Chloride 1,000 mls @ 125 mls/hr 06/14/15 14:45 06/20/15 06:47 Sodium Chloride 0.9% IV 125 mls/hr .Q8H JOO Administration Vancomycin HCl 750 mg/ Sodium 250 mls @ 166.6 mls/hr 06/14/15 16:00 06/19/15 14 :30 Chloride IVPB 166.6 mls/hr Q24H JOO Administration Fosphenytoin Sodium 100 mg/ 52 mls @ 100 mls/hr 06/20/15 20:00 Dextrose IV Q8H JOO Polyethylene Glycol 17 gm 06/19/15 11:30 06/20/15 10:43 Miralax PO 17 gm DAILY JOO Administration Potassium Chloride 40 meq 06/16/15 10:00 06/20/15 10:43 Potassium Chloride Oral Soln NG 40 meq DAILY JOO Administration - Patient Studies Lab Studies: Microbiology Studies 06/14/15 14:55 Gram Stain - Final Blood Blood Culture - Final NO GROWTH AFTER 5 DAYS 06/14/15 15:20 Gram Stain - Final Blood Blood Culture - Final NO GROWTH AFTER 5 DAYS Lab Studies 06/20/15 06/20/15 06/20/15 Range/Units 07:35 06:15 05:34 WBC 12.3 H (4.8-10.8) K/uL RBC 3.63 L (4.40-5.90) Mil/uL Hgb 11.0 L (12.0-18.0) g/dL Hct 33.6 L (35.0-51.0) % MCV 92.3 (80.0-94.0) fL MCH 30.2 (27.0-31.0) pg MCHC 32.7 L (33.0-37.0) g/dL RDW 14.1 (11.5-14.5) % Plt Count 206 (130-400) K/uL MPV 9.0 (7.2-11.7) fL Neut % (Auto) 81.6 H (50.0-75.0) % Lymph % (Auto) 5.9 L (20.0-40.0) % [place] % (Auto) 9.6 (0.0-10.0) % Eos % (Auto) 2.5 (0.0-4.0) % Baso % (Auto) 0.4 (0.0-2.0) % Neut # 10.0 H (1.8-7.0) K/uL Lymph # 0.7 L (1.0-4.3) K/uL [place] # 1.2 H (0.0-0.8) K/uL Eos # 0.3 (0.0-0.7) K/uL Baso # 0.0 (0.0-0.2) K/uL Neutrophils % (Manual) 85 H (50-75) % Lymphocytes % (Manual) 3 L (20-40) % Monocytes % (Manual) 12 H (0-10) % Toxic Granulation Present Platelet Estimate Normal (NORMAL) Large Platelets Present Hypochromasia (manual) Slight Poikilocytosis (manual Slight Anisocytosis (manual) Slight Ovalocytes Slight PT 10.9 (9.7-12.2) SECONDS INR 1.0 PTT 24 (21-34) SECONDS Plt Function Assay 76 K/uL pCO2 31.0 L (35.0-45.0) mm/Hg pO2 155.0 H (80.0-90.0) mm/Hg HCO3 25.3 (22.0-26.0) mmol/L ABG pH 7.520 H (7.350-7.450) ABG Total CO2 26.3 mmol/L ABG O2 Saturation 100.0 % ABG Base Excess 2.9 mmol/L A-a O2 Difference 91.0 mm/Hg FiO2 40.000 % Sodium 137 (132-148) mmol/L Potassium 3.6 (3.6-5.0) mmol/L Chloride 109 H (98-107) mmol/L Carbon Dioxide 24 (22-30) mmol/L Anion Gap 8 L (10-20) BUN 11 (9-20) mg/dL Creatinine 0.7 L (0.8-1.5) mg/dL Est GFR ( Amer) > 60 Est GFR (Non-Af Amer) > 60 Random Glucose 109 (75-110) mg/dL Calcium 7.6 L (8.4-10.2) mg/dL Phosphorus 2.7 (2.5-4.5) mg/dL Magnesium 2.1 (1.6-2.3) mg/dL Total Bilirubin 0.5 (0.2-1.3) mg/dL AST 153 H D (17-59) U/L ALT 424 H D (21-72) U/L Alkaline Phosphatase 72 (38-126) U/L Total Protein 5.5 L (6.3-8.2) g/dL Albumin 2.5 L (3.5-5.0) g/dL Globulin 3.0 (2.2-3.9) gm/dL Albumin/Globulin Ratio 0.8 L (1.0-2.1) Blood Type Antibody Screen 06/19/15 Range/Units 16:45 WBC (4.8-10.8) K/uL RBC (4.40-5.90) Mil/uL Hgb (12.0-18.0) g/dL Hct (35.0-51.0) % MCV (80.0-94.0) fL MCH (27.0-31.0) pg MCHC (33.0-37.0) g/dL RDW (11.5-14.5) % Plt Count (130-400) K/uL MPV (7.2-11.7) fL Neut % (Auto) (50.0-75.0) % Lymph % (Auto) (20.0-40.0) % [place] % (Auto) (0.0-10.0) % Eos % (Auto) (0.0-4.0) % Baso % (Auto) (0.0-2.0) % Neut # (1.8-7.0) K/uL Lymph # (1.0-4.3) K/uL [place] # (0.0-0.8) K/uL Eos # (0.0-0.7) K/uL Baso # (0.0-0.2) K/uL Neutrophils % (Manual) (50-75) % Lymphocytes % (Manual) (20-40) % Monocytes % (Manual) (0-10) % Toxic Granulation Platelet Estimate (NORMAL) Large Platelets Hypochromasia (manual) Poikilocytosis (manual Anisocytosis (manual) Ovalocytes PT (9.7-12.2) SECONDS INR PTT (21-34) SECONDS Plt Function Assay K/uL pCO2 (35.0-45.0) mm/Hg pO2 (80.0-90.0) mm/Hg HCO3 (22.0-26.0) mmol/L ABG pH (7.350-7.450) ABG Total CO2 mmol/L ABG O2 Saturation % ABG Base Excess mmol/L A-a O2 Difference mm/Hg FiO2 % Sodium (132-148) mmol/L Potassium (3.6-5.0) mmol/L Chloride (98-107) mmol/L Carbon Dioxide (22-30) mmol/L Anion Gap (10-20) BUN (9-20) mg/dL Creatinine (0.8-1.5) mg/dL Est GFR ( Amer) Est GFR (Non-Af Amer) Random Glucose (75-110) mg/dL Calcium (8.4-10.2) mg/dL Phosphorus (2.5-4.5) mg/dL Magnesium (1.6-2.3) mg/dL Total Bilirubin (0.2-1.3) mg/dL AST (17-59) U/L ALT (21-72) U/L Alkaline Phosphatase (38-126) U/L Total Protein (6.3-8.2) g/dL Albumin (3.5-5.0) g/dL Globulin (2.2-3.9) gm/dL Albumin/Globulin Ratio (1.0-2.1) Blood Type O POSITIVE Antibody Screen Negative Laboratory Results - last 24 hr 06/19/15 06/20/15 06/20/15 16:45 05:34 06:15 WBC 12.3 H RBC 3.63 L Hgb 11.0 L Hct 33.6 L MCV 92.3 MCH 30.2 MCHC 32.7 L RDW 14.1 Plt Count 206 MPV 9.0 Neut % (Auto) 81.6 H Lymph % (Auto) 5.9 L [place] % (Auto) 9.6 Eos % (Auto) 2.5 Baso % (Auto) 0.4 Neut # 10.0 H Lymph # 0.7 L [place] # 1.2 H Eos # 0.3 Baso # 0.0 Neutrophils % (Manual) 85 H Lymphocytes % (Manual) 3 L Monocytes % (Manual) 12 H Toxic Granulation Present Platelet Estimate Normal Large Platelets Present Hypochromasia (manual) Slight Poikilocytosis (manual Slight Anisocytosis (manual) Slight Ovalocytes Slight PT 10.9 INR 1.0 PTT 24 Plt Function Assay pCO2 31.0 L pO2 155.0 H HCO3 25.3 ABG pH 7.520 H ABG Total CO2 26.3 ABG O2 Saturation 100.0 ABG Base Excess 2.9 A-a O2 Difference 91.0 FiO2 40.000 Sodium 137 Potassium 3.6 Chloride 109 H Carbon Dioxide 24 Anion Gap 8 L BUN 11 Creatinine 0.7 L Est GFR ( Amer) > 60 Est GFR (Non-Af Amer) > 60 Random Glucose 109 Calcium 7.6 L Phosphorus 2.7 Magnesium 2.1 Total Bilirubin 0.5 AST 153 H D ALT 424 H D Alkaline Phosphatase 72 Total Protein 5.5 L Albumin 2.5 L Globulin 3.0 Albumin/Globulin Ratio 0.8 L Blood Type O POSITIVE Antibody Screen Negative 06/20/15 07:35 WBC RBC Hgb Hct MCV MCH MCHC RDW Plt Count MPV Neut % (Auto) Lymph % (Auto) [place] % (Auto) Eos % (Auto) Baso % (Auto) Neut # Lymph # [place] # Eos # Baso # Neutrophils % (Manual) Lymphocytes % (Manual) Monocytes % (Manual) Toxic Granulation Platelet Estimate Large Platelets Hypochromasia (manual) Poikilocytosis (manual Anisocytosis (manual) Ovalocytes PT INR PTT Plt Function Assay 76 pCO2 pO2 HCO3 ABG pH ABG Total CO2 ABG O2 Saturation ABG Base Excess A-a O2 Difference FiO2 Sodium Potassium Chloride Carbon Dioxide Anion Gap BUN Creatinine Est GFR ( Amer) Est GFR (Non-Af Amer) Random Glucose Calcium Phosphorus Magnesium Total Bilirubin AST ALT Alkaline Phosphatase Total Protein Albumin Globulin Albumin/Globulin Ratio Blood Type Antibody Screen EKG/Cardiology Studies: Cardiology / EKG Studies 06/13/15 20:54 ELECTROCARDIOGRAM Stat Comment: repeat Mode Of Transportation: BED Reason For Exam: cp bed 6 Critical Care Progress Note - Nutrition Nutrition: Nutrition Category Date Time Status NPO Diet [DIET] Diets 06/19/15 Dinner Active Assessment/Plan (1) Anoxic encephalopathy Current Visit: Yes Status: Acute Comment: Trach and Peg insertaion today. Head CT (06/20) - Global ischemia. Diffuse loss of lester white matter differentiation. This is most likely the results of an anoxic event such as cardiac arrest. 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 No evidence of downward herniation or midline shift. Most likely due to cardiac arrest Family still wants full code. Intubated Unresponsive to painful stimuli Palliative care on case (2) Bronchopneumonia Current Visit: Yes Status: Acute Comment: Cont Zosyn and vanco Patient febrile monitor (3) Cardiac arrest Current Visit: Yes Status: Acute Comment: S/P V-Tach arrest Continue Amiodarone 200mg daily Cont ASA 325 mg po daily Cont Plavix 75 mg po daily Cont Enalapril 2.5 mg po daily Cont atenolol 12.5mg daily Monitor (4) Respiratory failure Current Visit: Yes Status: Acute Comment: Trach and PEG today with dr. Chan (5) STEMI (ST elevation myocardial infarction) Current Visit: Yes Status: Acute Comment: Cardiac cath on 06/13 with occluded RCA and left main Continue ASA 325mg PO daily Cont Plavix 75mg PO daily Cont atenolol 12.5mg pO daily Cont Vasotec 2.5mg PO daily Attending/Attestation - Attestation I have personally seen and examined this patient.: Yes I have fully participated in the care of the patient.: Yes I have reviewed all pertinent clinical information: Yes Notes (Text): 06/20/15 15:48 S/P Trach and PEG tube insertion done Worsening cerebral edema had a seizure, responding to ativan and cerebrex
--- NOTE | 2015-06-20 11:10 | CP.PCM.PN ---
Subjective - Subjective Subjective: Patient seen and examined. As before there is no significant change in mental status due to the anoxic brain injury and infarction. At some point to day will be going for a trach and also PEG placement as well. Objective - Vital Signs/Intake and Output Vital Signs (last 24 hours): Vital Signs - 24 hr 06/19/15 06/19/15 06/19/15 11:25 12:00 13:00 Temperature 99.7 F H Pulse Rate 51 L 55 L Respiratory 22 18 Rate Blood Pressure 94/52 L 115/64 97/65 L O2 Sat by Pulse 100 100 Oximetry 06/19/15 06/19/15 06/19/15 14:00 15:00 16:00 Temperature 98.3 F Pulse Rate 49 L 57 L 56 L Respiratory 20 22 23 Rate Blood Pressure 98/65 L 132/74 O2 Sat by Pulse 100 100 100 Oximetry 06/19/15 06/19/15 06/19/15 17:00 18:00 19:00 Temperature Pulse Rate 53 L 52 L 57 L Respiratory 24 18 21 Rate Blood Pressure 110/66 104/75 125/70 O2 Sat by Pulse 100 100 100 Oximetry 06/19/15 06/19/15 06/19/15 20:00 21:00 22:00 Temperature 98.4 F Pulse Rate 58 L 53 L 54 L Respiratory 18 20 20 Rate Blood Pressure 124/67 100/56 L 117/62 O2 Sat by Pulse 100 100 100 Oximetry 06/19/15 06/20/15 06/20/15 23:00 00:00 01:00 Temperature 97.7 F Pulse Rate 60 58 L 61 Respiratory 18 22 20 Rate Blood Pressure 115/64 113/67 115/67 O2 Sat by Pulse 100 100 100 Oximetry 06/20/15 06/20/15 06/20/15 02:00 03:00 04:00 Temperature 98.4 F Pulse Rate 65 61 67 Respiratory 21 20 18 Rate Blood Pressure 128/77 103/68 140/70 O2 Sat by Pulse 100 100 100 Oximetry 06/20/15 06/20/15 06/20/15 05:00 06:00 07:00 Temperature Pulse Rate 65 68 66 Respiratory 20 20 21 Rate Blood Pressure 143/85 145/82 109/71 O2 Sat by Pulse 100 100 100 Oximetry 06/20/15 06/20/15 06/20/15 08:00 09:00 10:00 Temperature 99.5 F Pulse Rate 66 68 63 Respiratory 22 21 22 Rate Blood Pressure 141/79 136/79 105/63 O2 Sat by Pulse 100 100 100 Oximetry 06/20/15 10:43 Temperature Pulse Rate Respiratory Rate Blood Pressure 105/63 O2 Sat by Pulse Oximetry Intake and Output (last 12 hours): Intake & Output 06/19/15 06/20/15 06/20/15 18:59 06:59 18:59 Intake Total 2330 1940 125 Output Total 1295 1020 100 Balance 1035 920 25 Weight 155 lb 6.814 oz Intake: Intake, IV Amount 1750 1650 125 Left Forearm 1750 1650 125 Tube Feeding 480 240 Other 100 50 Output: Urine 1295 1020 100 Urethral (Yoo) 1295 1020 100 - Medications Medications: Current Medications Amiodarone HCl (Cordarone) 200 mg PO DAILY [facility] Last Admin: 06/20/15 10:43 Dose: 200 mg Aspirin (Aspirin) 325 mg PO DAILY [facility] Last Admin: 06/19/15 10:12 Dose: 325 mg Clopidogrel Bisulfate (Plavix) 75 mg PO DAILY [facility] Last Admin: 06/19/15 10:12 Dose: 75 mg Enalapril Maleate (Vasotec) 2.5 mg PO DAILY [facility] Last Admin: 06/20/15 10:43 Dose: 2.5 mg Famotidine (Pepcid) 20 mg PO BID [facility] Last Admin: 06/20/15 10:43 Dose: 20 mg Piperacillin Sod/Tazobactam Sod (Zosyn 3.375 Gm Iv Premix) 50 mls @ 100 mls/hr IVPB Q8H [facility] Last Admin: 06/20/15 00:15 Dose: 100 mls/hr Sodium Chloride (Sodium Chloride 0.9%) 1,000 mls @ 125 mls/hr IV .Q8H [facility] Last Admin: 06/20/15 06:47 Dose: 125 mls/hr Vancomycin HCl 750 mg/ Sodium (Chloride) 250 mls @ 166.6 mls/hr IVPB Q24H [facility] Last Admin: 06/19/15 14:30 Dose: 166.6 mls/hr Polyethylene Glycol (Miralax) 17 gm PO DAILY [facility] Last Admin: 06/20/15 10:43 Dose: 17 gm Potassium Chloride (Potassium Chloride Oral Soln) 40 meq NG DAILY [facility] Last Admin: 06/20/15 10:43 Dose: 40 meq - Labs Labs (last 24 hours): Laboratory Results - last 24 hr 06/19/15 06/20/15 06/20/15 16:45 05:34 06:15 WBC 12.3 H RBC 3.63 L Hgb 11.0 L Hct 33.6 L MCV 92.3 MCH 30.2 MCHC 32.7 L RDW 14.1 Plt Count 206 MPV 9.0 Neut % (Auto) 81.6 H Lymph % (Auto) 5.9 L [place] % (Auto) 9.6 Eos % (Auto) 2.5 Baso % (Auto) 0.4 Neut # 10.0 H Lymph # 0.7 L [place] # 1.2 H Eos # 0.3 Baso # 0.0 Neutrophils % (Manual) 85 H Lymphocytes % (Manual) 3 L Monocytes % (Manual) 12 H Toxic Granulation Present Platelet Estimate Normal Large Platelets Present Hypochromasia (manual) Slight Poikilocytosis (manual Slight Anisocytosis (manual) Slight Ovalocytes Slight PT 10.9 INR 1.0 PTT 24 Plt Function Assay pCO2 31.0 L pO2 155.0 H HCO3 25.3 ABG pH 7.520 H ABG Total CO2 26.3 ABG O2 Saturation 100.0 ABG Base Excess 2.9 A-a O2 Difference 91.0 FiO2 40.000 Sodium 137 Potassium 3.6 Chloride 109 H Carbon Dioxide 24 Anion Gap 8 L BUN 11 Creatinine 0.7 L Est GFR ( Amer) > 60 Est GFR (Non-Af Amer) > 60 Random Glucose 109 Calcium 7.6 L Phosphorus 2.7 Magnesium 2.1 Total Bilirubin 0.5 AST 153 H D ALT 424 H D Alkaline Phosphatase 72 Total Protein 5.5 L Albumin 2.5 L Globulin 3.0 Albumin/Globulin Ratio 0.8 L Blood Type O POSITIVE Antibody Screen Negative 06/20/15 07:35 WBC RBC Hgb Hct MCV MCH MCHC RDW Plt Count MPV Neut % (Auto) Lymph % (Auto) [place] % (Auto) Eos % (Auto) Baso % (Auto) Neut # Lymph # [place] # Eos # Baso # Neutrophils % (Manual) Lymphocytes % (Manual) Monocytes % (Manual) Toxic Granulation Platelet Estimate Large Platelets Hypochromasia (manual) Poikilocytosis (manual Anisocytosis (manual) Ovalocytes PT INR PTT Plt Function Assay 76 pCO2 pO2 HCO3 ABG pH ABG Total CO2 ABG O2 Saturation ABG Base Excess A-a O2 Difference FiO2 Sodium Potassium Chloride Carbon Dioxide Anion Gap BUN Creatinine Est GFR ( Amer) Est GFR (Non-Af Amer) Random Glucose Calcium Phosphorus Magnesium Total Bilirubin AST ALT Alkaline Phosphatase Total Protein Albumin Globulin Albumin/Globulin Ratio Blood Type Antibody Screen - Constitutional Appears: Older Than Stated Age, Chronically Ill - Head Exam Additional comments: ET tube, NGT - Respiratory Exam Respiratory Exam: Rales, Rhonchi - Cardiovascular Exam Cardiovascular Exam: REGULAR RHYTHM - GI/Abdominal Exam GI & Abdominal Exam: Normal Bowel Sounds, Soft - Neurological Exam Neurological exam: Altered Neuro motor strength exam: Left Upper Extremity: 0, Right Upper Extremity: 0, Left Lower Extremity: 0, Right Lower Extremity: 0 Additional comments: As mentioned in previous notes there does appear to have some spontaneous eye movement however not following any commands Assessment/Plan (1) Respiratory failure Current Visit: Yes Status: Acute Comment: Trach and PEG today (2) Anoxic encephalopathy Current Visit: Yes Status: Acute Comment: Trach and Peg insertaion today. Head CT (06/20) - Global ischemia. Diffuse loss of lester white matter differentiation. This is most likely the results of an anoxic event such as cardiac arrest. 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 No evidence of downward herniation or midline shift. Most likely due to cardiac arrest Family still wants full code. Intubated Unresponsive to painful stimuli Palliative care on case (3) STEMI (ST elevation myocardial infarction) Current Visit: Yes Status: Acute Comment: Cardiac cath on 06/13 with occluded RCA and left main Continue ASA 325mg PO daily Cont Plavix 75mg PO daily Cont atenolol 12.5mg pO daily Cont Vasotec 2.5mg PO daily (4) Cardiac arrest Current Visit: Yes Status: Acute Comment: S/P V-Tach arrest Continue Amiodarone 200mg daily Cont ASA 325 mg po daily Cont Plavix 75 mg po daily Cont Enalapril 2.5 mg po daily Cont atenolol 12.5mg daily Monitor (5) Seizures Current Visit: Yes Status: Acute Comment: Dr. Garcia on case-help appreciated likely secondary to anoxic injury Cont Fosphenytoin 100mg IVPB q8hrs Monitor (6) Prophylactic measure Current Visit: Yes Status: Acute Comment: Pepcid 20 mg IVP q12 SCD's Plavix Miralax
--- NOTE | 2015-06-20 11:52 | RAD ---
PROCEDURE: CHEST RADIOGRAPH, 1 VIEW HISTORY: vent COMPARISON: 06/19/2015 FINDINGS: LUNGS: Clear. PLEURA: No pneumothorax or pleural fluid seen. CARDIOVASCULAR: ET tube and NG tube unchanged. OSSEOUS STRUCTURES: No significant abnormalities. VISUALIZED UPPER ABDOMEN: Normal. OTHER FINDINGS: None. IMPRESSION: No interval change
--- NOTE | 2015-06-20 13:52 | PCM.SURG1 ---
Surgeon's Initial Post Op Note - Surgeon's Notes Surgeon: Dr Chan Medical Anthropology Director: Sandra Johnson DO Type of Anesthesia: General Endo Pre-Operative Diagnosis: Cardiac Arrest, Head Laceration Operative Findings: Cardiac Arrest, Head Laceration Post-Operative Diagnosis: Cardiac Arrest Head Laceration Operation Performed: Flexible Bronchoscopy, Tracheostomy, EGD, Peg insertion Specimen/Specimens Removed: none Estimated Blood Loss: EBL {In ML}: 10 Blood Products Given: N/A Drains Used: No Drains Post-Op Condition: Fair Date of Surgery/Procedure: 06/20/15 Time of Surgery/Procedure: 01:00
--- NOTE | 2015-06-20 14:49 | RAD ---
PROCEDURE: CHEST RADIOGRAPH, 1 VIEW HISTORY: Trach/Peg placement COMPARISON: 06/20 at 7:03 a.m. FINDINGS: LUNGS: Clear. PLEURA: No pneumothorax or pleural fluid seen. CARDIOVASCULAR: The heart size is normal. The endotracheal tube has been removed. A tracheostomy tube has been inserted. The nasogastric tube has been removed. OSSEOUS STRUCTURES: No significant abnormalities. VISUALIZED UPPER ABDOMEN: Normal. OTHER FINDINGS: None. IMPRESSION: Tracheostomy tube replaced endotracheal tube. Nasogastric tube removed. Otherwise no change.
--- NOTE | 2015-06-20 16:09 | OP ---
PROCEDURE DATE: 06/20/2015 PREOPERATIVE DIAGNOSES: 1. Respiratory failure. 2. Anoxic brain injury. 3. Cardiac arrest. POSTOPERATIVE DIAGNOSES: 1. Respiratory failure. 2. Anoxic brain injury. 3. Cardiac arrest. PROCEDURES: 1. Percutaneous tracheostomy. 2. PEG tube insertion. 3. Flexible bronchoscopy. ATTENDING SURGEON: Blair Chan MD [employer]: Sandra Johnson DO ANESTHESIA: General. INDICATION: The patient is a 64-year-old male with no significant past medical history who is actual ly a visiting tourist from [place] who sustained a cardiorespiratory arrest and was found to have an an oxic brain injury. The patient did exhibit some brainstem function and the family wanted to pursue a ll therapeutic options. Informed consent was obtained from the patient's to proceed with a perc utaneous tracheostomy, bronchoscopy as well as the PEG tube insertion after risks and benefits of the procedure were described in detail including bleeding, infection, paratracheal tissue injury, pneumo thorax, intraabdominal organ injury, UT, arrhythmia, and . Informed consent was obtained. DESCRIPTION OF PROCEDURE: The patient was placed supine and kept in his ICU bed. Hemodynamic monito ring was established by the anesthesia team. A flexible bronchoscopy was performed to evacuate all s ecretions from the tracheobronchial tree bilaterally. Mild tracheobronchitis was noted. The patien t's neck, chest and upper abdomen were prepped and draped in the usual sterile fashion. Curvilinear incision was made 1 fingerbreadth above the sternal notch. The existing endotracheal tube was withdr awn into the proximal trachea. Under direct bronchoscopic guidance, needle and guidewire were used t o puncture the anterior tracheal wall. This was dilated with a short dilator then the Blue Rhino dil ator prior to inserting an 8-Slovak cuff Shiley tracheostomy appliance into the mid to distal trachea under bronchoscopic visualization. Proper end tidal CO2 confirmation was done. It was done, as wel l as repeat bronchoscopy to evacuate secretions. The tracheostomy was secured to the patient's skin with 0 silk suture. A Velcro tracheostomy strap was applied as well. We then directed our attention to performing the PEG portion of procedure with the patient's abdomen was prepped and draped in the usual sterile fashion. The EGD scope was inserted and the stomach insufflated. Transillumination wa s readily apparent. A 1 cm transverse incision was made prior to inserting the needle and guidewire into the stomach. The guidewire was inserted. The angiocatheter was withdrawn. The guidewire was gr asped with the endoscope and delivered to the patient's mouth. The PEG tube was attached and redeliv ered through the patient's stomach. Repeat EGD was done to confirm placement. The PEG tube was ancho red to the patient's left upper quadrant with 0 silk interrupted suture. The PEG tube was attached t o a Yoo bag for decompression. The patient tolerated the procedure well and was taken in satisfact ory condition back to the intensive care unit. All instruments and sponge counts were correct at the completion of the case. Blair Chan MD cc: [id number] TT: 06/20/2015 16:10:10 jeanna
[2015-06-21] MEDS: Piperacill/Tazo 3.375gm in Dex 50 ML IVPB SCH ×3 (00:03→17:00)
[2015-06-21] MEDS: Fosphenytoin 100 MG in Dextrose 5% In Water 50 ML IV SCH ×3 (03:52→23:12)
[2015-06-21 05:34] LABS: ARTERIAL BLOOD GAS HCO3 23.6 mmol/L (22.0-26.0); ARTERIAL BLOOD GAS TCO2 24.3 mmol/L
[2015-06-21 07:16] LABS: BASO % 0.3 % (0.0-2.0); EOS # 0.3 K/uL (0.0-0.7); EOS % 2.9 % (0.0-4.0); HEMOGLOBIN 11.7 g/dL (12.0-18.0); LYMPH # 0.8 K/uL (1.0-4.3); LYMPH % 8.1 % (20.0-40.0); MEAN CELL VOLUME 93.1 fL (80.0-94.0); MEAN CORPUSCULAR HEMOGLOBIN 30.3 pg (27.0-31.0); MEAN CORPUSCULAR HGB CONC 32.5 g/dL (33.0-37.0); MEAN PLATELET VOLUME 8.6 fL (7.2-11.7); MONO % 9.9 % (0.0-10.0); NEUT # 8.1 K/uL (1.8-7.0); NEUT % 78.8 % (50.0-75.0); PLATELET COUNT 275 K/uL (130-400); RBC 3.87 Mil/uL (4.40-5.90); RED CELL DISTRIBUTION WIDTH 14.2 % (11.5-14.5); WHITE BLOOD COUNT 10.2 K/uL (4.8-10.8)
[2015-06-21 07:24] LABS: ALBUMIN 2.8 g/dL (3.5-5.0)
[2015-06-21 07:26] LABS: GFR NON-AFRICAN AMERICAN > 60
[2015-06-21 07:27] LABS: ALB/GLOB RATIO 0.9 (1.0-2.1); ALT/SGPT 314 U/L (21-72); AST/SGOT 140 U/L (17-59); BLOOD UREA NITROGEN 12 mg/dL (9-20); CALCIUM 7.6 mg/dL (8.4-10.2)
--- NOTE | 2015-06-21 08:03 | RAD ---
PROCEDURE: CHEST RADIOGRAPH, 1 VIEW HISTORY: Ventilator COMPARISON: None available. FINDINGS: LUNGS: Tracheostomy tube. Mild venous congestion. Multiple overlying external wires over the right jett thorax. PLEURA: No pneumothorax or pleural fluid seen. CARDIOVASCULAR: Normal. OSSEOUS STRUCTURES: No significant abnormalities. VISUALIZED UPPER ABDOMEN: Normal. OTHER FINDINGS: None. IMPRESSION: No significant interval change.
[2015-06-21 08:35] LABS: EOSINOPHIL 3 % (0-4); LYMPHOCYTE 8 % (20-40); MONOCYTE 13 % (0-10); NEUTROPHIL 76 % (50-75); TOTAL CELLS COUNTED 100
[2015-06-21 08:36] LABS: ANISOCYTOSIS SLIGHT; HYPOCHROMIC SLIGHT; LARGE PLATELETS PRESENT; PLATELET ESTIMATE NORMAL (NORMAL); POIKILOCYTOSIS SLIGHT
--- NOTE | 2015-06-21 09:26 | CP.PCM.PN ---
Subjective - Subjective Subjective: S/P trach placment and PEG placement. Cont mechanical ventilation at this time. Per discussion with ICU at some point today will be moved to the telemetry. WBC decreasing. Objective - Vital Signs/Intake and Output Vital Signs (last 24 hours): Vital Signs - 24 hr 06/20/15 06/20/15 06/20/15 10:00 10:43 11:00 Temperature Pulse Rate 63 64 Respiratory 22 19 Rate Blood Pressure 105/63 105/63 115/78 O2 Sat by Pulse 100 100 Oximetry 06/20/15 06/20/15 06/20/15 12:00 14:00 14:05 Temperature 98.5 F 97.6 F Pulse Rate 62 54 L 56 L Respiratory 19 22 20 Rate Blood Pressure 113/70 96/60 L 99/60 L O2 Sat by Pulse 100 100 100 Oximetry 06/20/15 06/20/15 06/20/15 14:20 14:35 14:50 Temperature Pulse Rate 54 L 52 L 52 L Respiratory 18 20 20 Rate Blood Pressure 96/62 L 97/62 L 100/62 O2 Sat by Pulse 100 100 100 Oximetry 06/20/15 06/20/15 06/20/15 15:00 15:20 15:50 Temperature Pulse Rate 52 L 52 L 53 L Respiratory 20 18 20 Rate Blood Pressure 108/66 108/70 117/65 O2 Sat by Pulse 100 100 100 Oximetry 06/20/15 06/20/15 06/20/15 16:00 17:00 18:00 Temperature Pulse Rate 57 L 58 L 64 Respiratory 22 20 24 Rate Blood Pressure 115/81 118/74 110/67 O2 Sat by Pulse 100 100 100 Oximetry 06/20/15 06/20/15 06/20/15 19:00 19:55 21:00 Temperature 98.9 F Pulse Rate 58 L 64 63 Respiratory 19 21 19 Rate Blood Pressure 108/60 129/74 96/54 L O2 Sat by Pulse 100 100 100 Oximetry 06/20/15 06/20/15 06/21/15 22:00 23:00 00:00 Temperature 98.2 F Pulse Rate 63 70 68 Respiratory 22 21 22 Rate Blood Pressure 115/67 117/71 139/79 O2 Sat by Pulse 100 100 100 Oximetry 06/21/15 06/21/15 06/21/15 01:00 02:00 02:58 Temperature Pulse Rate 71 62 60 Respiratory 21 21 21 Rate Blood Pressure 105/64 109/66 118/73 O2 Sat by Pulse 100 100 100 Oximetry 06/21/15 06/21/15 06/21/15 03:55 05:00 06:00 Temperature 99 F Pulse Rate 65 61 61 Respiratory 24 23 21 Rate Blood Pressure 131/80 108/74 128/75 O2 Sat by Pulse 100 100 100 Oximetry 06/21/15 06/21/15 06:58 09:08 Temperature Pulse Rate 64 65 Respiratory 22 22 Rate Blood Pressure 126/75 140/82 O2 Sat by Pulse 100 100 Oximetry Intake and Output (last 12 hours): Intake & Output 06/20/15 06/21/15 06/21/15 18:59 06:59 18:59 Intake Total 775 100 Output Total 1625 1495 100 Balance -850 -1395 -100 Weight 156 lb 8.451 oz Intake: Intake, IV Amount 675 Left Forearm 675 Oral 100 Other 100 Output: Gastric Amount 25 Stomach 25 Urine 1625 1470 100 Urethral (Yoo) 1625 1470 100 - Medications Medications: Current Medications Amiodarone HCl (Cordarone) 200 mg PO DAILY [facility] Aspirin (Aspirin) 325 mg PO DAILY [facility] Clopidogrel Bisulfate (Plavix) 75 mg PO DAILY [facility] Enalapril Maleate (Vasotec) 2.5 mg PO DAILY [facility] Famotidine (Pepcid) 20 mg PO BID [facility] Fosphenytoin Sodium 100 mg/ (Dextrose) 52 mls @ 100 mls/hr IV Q8H [facility] Piperacillin Sod/Tazobactam Sod (Zosyn 3.375 Gm Iv Premix) 50 mls @ 100 mls/hr IVPB Q8H [facility] Vancomycin HCl 750 mg/ Sodium (Chloride) 250 mls @ 166.6 mls/hr IVPB Q24H [facility] Polyethylene Glycol (Miralax) 17 gm PO DAILY [facility] Potassium Chloride (Potassium Chloride Oral Soln) 40 meq NG DAILY [facility] - Labs Labs (last 24 hours): Laboratory Results - last 24 hr 06/19/15 06/21/15 06/21/15 12:20 05:18 07:00 WBC 10.2 RBC 3.87 L Hgb 11.7 L Hct 36.0 MCV 93.1 MCH 30.3 MCHC 32.5 L RDW 14.2 Plt Count 275 MPV 8.6 Neut % (Auto) 78.8 H Lymph % (Auto) 8.1 L [place] % (Auto) 9.9 Eos % (Auto) 2.9 Baso % (Auto) 0.3 Neut # 8.1 H Lymph # 0.8 L [place] # 1.0 H Eos # 0.3 Baso # 0.0 Neutrophils % (Manual) 76 H Lymphocytes % (Manual) 8 L Monocytes % (Manual) 13 H Eosinophils % (Manual) 3 Platelet Estimate Normal Large Platelets Present Hypochromasia (manual) Slight Poikilocytosis (manual Slight Anisocytosis (manual) Slight pCO2 24.0 L pO2 147.0 H HCO3 23.6 ABG pH 7.600 H* ABG Total CO2 24.3 ABG O2 Saturation 100.0 ABG Base Excess 3.2 A-a O2 Difference 108.0 Mechanical Rate 16.000 FiO2 40.000 Tidal Volume 450.000 Sodium 136 Potassium 3.6 Chloride 107 Carbon Dioxide 22 Anion Gap 10 BUN 12 Creatinine 0.7 L Est GFR ( Amer) > 60 Est GFR (Non-Af Amer) > 60 POC Glucose (mg/dL) 147 H Random Glucose 89 Calcium 7.6 L Phosphorus 2.8 Magnesium 2.1 Total Bilirubin 1.0 AST 140 H ALT 314 H D Alkaline Phosphatase 76 Total Protein 5.8 L Albumin 2.8 L Globulin 3.0 Albumin/Globulin Ratio 0.9 L - Constitutional Appears: Unkempt, Chronically Ill - Eye Exam Additional comments: There is occasional opening and closing of the eyes - ENT Exam ENT Exam: Mucous Membranes Moist Additional comments: Now with trach - Respiratory Exam Respiratory Exam: Rales, Rhonchi - Cardiovascular Exam Cardiovascular Exam: REGULAR RHYTHM - GI/Abdominal Exam GI & Abdominal Exam: Normal Bowel Sounds, Soft Additional comments: Now has PEG - Neurological Exam Neurological exam: Altered Neuro motor strength exam: Left Upper Extremity: 0, Right Upper Extremity: 0, Left Lower Extremity: 0, Right Lower Extremity: 0 Assessment/Plan (1) Respiratory failure Current Visit: Yes Status: Acute Comment: 06/21 S/P day 1 of trach and PEG with dr. Chan. Patient still on ventilator (2) Anoxic encephalopathy Current Visit: Yes Status: Acute Comment: 06/21 S/P trach and PEG. At some point today will be moved to telemetry Head CT (06/20) - Global ischemia. Diffuse loss of lester white matter differentiation. This is most likely the results of an anoxic event such as cardiac arrest. 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 No evidence of downward herniation or midline shift. Most likely due to cardiac arrest Family still wants full code. Intubated Unresponsive to painful stimuli Palliative care on case (3) STEMI (ST elevation myocardial infarction) Current Visit: Yes Status: Acute Comment: Cardiac cath on 06/13 with occluded RCA and left main Continue ASA 325mg PO daily Cont Plavix 75mg PO daily Cont atenolol 12.5mg pO daily Cont Vasotec 2.5mg PO daily (4) Cardiac arrest Current Visit: Yes Status: Acute Comment: S/P V-Tach arrest Continue Amiodarone 200mg daily Cont ASA 325 mg po daily Cont Plavix 75 mg po daily Cont Enalapril 2.5 mg po daily Cont atenolol 12.5mg daily Monitor (5) Seizures Current Visit: Yes Status: Acute Comment: Dr. Garcia on case-help appreciated likely secondary to anoxic injury Fosphenytoin 100mg IVP Q8 + 500mg IVP STAT Ativan 2mg stat dose Monitor (6) Prophylactic measure Current Visit: Yes Status: Acute Comment: Pepcid 20 mg IVP q12 SCD's Plavix Miralax
[2015-06-21] MEDS: POLYETHYLENE GLYCOL 3350 17 GM/Dose PACKET PO SCH (09:39)
[2015-06-21] MEDS: Potassium Chloride 20 mEq/15 ml LIQ UD NG SCH (09:40)
--- NOTE | 2015-06-21 10:35 | CP.PCM.PN ---
Subjective - Subjective Subjective: CT surgery progress note Pt seen and examined this AM. Pt had Trach and Peg done yesterday, tolerated procedure well. PT currently intubated. No overnight events per nursing. Review of Systems - Review of Systems Systems not reviewed;Unavailable: Intubated Objective - Vital Signs/Intake and Output Vital Signs (last 24 hours): Vital Signs - 24 hr 06/20/15 06/20/15 06/20/15 10:43 11:00 12:00 Temperature 98.5 F Pulse Rate 64 62 Respiratory 19 19 Rate Blood Pressure 105/63 115/78 113/70 O2 Sat by Pulse 100 100 Oximetry 06/20/15 06/20/15 06/20/15 14:00 14:05 14:20 Temperature 97.6 F Pulse Rate 54 L 56 L 54 L Respiratory 22 20 18 Rate Blood Pressure 96/60 L 99/60 L 96/62 L O2 Sat by Pulse 100 100 100 Oximetry 06/20/15 06/20/15 06/20/15 14:35 14:50 15:00 Temperature Pulse Rate 52 L 52 L 52 L Respiratory 20 20 20 Rate Blood Pressure 97/62 L 100/62 108/66 O2 Sat by Pulse 100 100 100 Oximetry 06/20/15 06/20/15 06/20/15 15:20 15:50 16:00 Temperature Pulse Rate 52 L 53 L 57 L Respiratory 18 20 22 Rate Blood Pressure 108/70 117/65 115/81 O2 Sat by Pulse 100 100 100 Oximetry 06/20/15 06/20/15 06/20/15 17:00 18:00 19:00 Temperature Pulse Rate 58 L 64 58 L Respiratory 20 24 19 Rate Blood Pressure 118/74 110/67 108/60 O2 Sat by Pulse 100 100 100 Oximetry 06/20/15 06/20/15 06/20/15 19:55 21:00 22:00 Temperature 98.9 F Pulse Rate 64 63 63 Respiratory 21 19 22 Rate Blood Pressure 129/74 96/54 L 115/67 O2 Sat by Pulse 100 100 100 Oximetry 06/20/15 06/21/15 06/21/15 23:00 00:00 01:00 Temperature 98.2 F Pulse Rate 70 68 71 Respiratory 21 22 21 Rate Blood Pressure 117/71 139/79 105/64 O2 Sat by Pulse 100 100 100 Oximetry 06/21/15 06/21/15 06/21/15 02:00 02:58 03:55 Temperature 99 F Pulse Rate 62 60 65 Respiratory 21 21 24 Rate Blood Pressure 109/66 118/73 131/80 O2 Sat by Pulse 100 100 100 Oximetry 06/21/15 06/21/15 06/21/15 05:00 06:00 06:58 Temperature Pulse Rate 61 61 64 Respiratory 23 21 22 Rate Blood Pressure 108/74 128/75 126/75 O2 Sat by Pulse 100 100 100 Oximetry 06/21/15 06/21/15 09:08 09:40 Temperature Pulse Rate 65 Respiratory 22 Rate Blood Pressure 140/82 130/70 O2 Sat by Pulse 100 Oximetry Intake and Output (last 12 hours): Intake & Output 06/20/15 06/21/15 06/21/15 18:59 06:59 18:59 Intake Total 775 100 Output Total 1625 1495 100 Balance -850 -1395 -100 Weight 156 lb 8.451 oz Intake: Intake, IV Amount 675 Left Forearm 675 Oral 100 Other 100 Output: Gastric Amount 25 Stomach 25 Urine 1625 1470 100 Urethral (Yoo) 1625 1470 100 - Medications Medications: Current Medications Amiodarone HCl (Cordarone) 200 mg PO DAILY [facility] Last Admin: 06/21/15 09:39 Dose: 200 mg Aspirin (Aspirin) 325 mg PO DAILY [facility] Last Admin: 06/21/15 09:39 Dose: 325 mg Clopidogrel Bisulfate (Plavix) 75 mg PO DAILY [facility] Last Admin: 06/21/15 09:44 Dose: 75 mg Enalapril Maleate (Vasotec) 2.5 mg PO DAILY [facility] Last Admin: 06/21/15 09:40 Dose: 2.5 mg Famotidine (Pepcid) 20 mg PO BID [facility] Last Admin: 06/21/15 09:40 Dose: 20 mg Fosphenytoin Sodium 100 mg/ (Dextrose) 52 mls @ 100 mls/hr IV Q8H [facility] Piperacillin Sod/Tazobactam Sod (Zosyn 3.375 Gm Iv Premix) 50 mls @ 100 mls/hr IVPB Q8H [facility] Vancomycin HCl 750 mg/ Sodium (Chloride) 250 mls @ 166.6 mls/hr IVPB Q24H [facility] Polyethylene Glycol (Miralax) 17 gm PO DAILY [facility] Last Admin: 06/21/15 09:39 Dose: 17 gm Potassium Chloride (Potassium Chloride Oral Soln) 40 meq NG DAILY JOO Last Admin: 06/21/15 09:40 Dose: 40 meq - Labs Labs (last 24 hours): Laboratory Results - last 24 hr 06/19/15 06/21/15 06/21/15 12:20 05:18 07:00 WBC 10.2 RBC 3.87 L Hgb 11.7 L Hct 36.0 MCV 93.1 MCH 30.3 MCHC 32.5 L RDW 14.2 Plt Count 275 MPV 8.6 Neut % (Auto) 78.8 H Lymph % (Auto) 8.1 L Ellis % (Auto) 9.9 Eos % (Auto) 2.9 Baso % (Auto) 0.3 Neut # 8.1 H Lymph # 0.8 L Ellis # 1.0 H Eos # 0.3 Baso # 0.0 Neutrophils % (Manual) 76 H Lymphocytes % (Manual) 8 L Monocytes % (Manual) 13 H Eosinophils % (Manual) 3 Platelet Estimate Normal Large Platelets Present Hypochromasia (manual) Slight Poikilocytosis (manual Slight Anisocytosis (manual) Slight pCO2 24.0 L pO2 147.0 H HCO3 23.6 ABG pH 7.600 H* ABG Total CO2 24.3 ABG O2 Saturation 100.0 ABG Base Excess 3.2 A-a O2 Difference 108.0 Mechanical Rate 16.000 FiO2 40.000 Tidal Volume 450.000 Sodium 136 Potassium 3.6 Chloride 107 Carbon Dioxide 22 Anion Gap 10 BUN 12 Creatinine 0.7 L Est GFR ( Amer) > 60 Est GFR (Non-Af Amer) > 60 POC Glucose (mg/dL) 147 H Random Glucose 89 Calcium 7.6 L Phosphorus 2.8 Magnesium 2.1 Total Bilirubin 1.0 AST 140 H ALT 314 H D Alkaline Phosphatase 76 Total Protein 5.8 L Albumin 2.8 L Globulin 3.0 Albumin/Globulin Ratio 0.9 L - Constitutional Appears: No Acute Distress - Head Exam Head Exam: ATRAUMATIC, NORMOCEPHALIC - Respiratory Exam Respiratory Exam: NORMAL BREATHING PATTERN Additional comments: Trach in place, appears clean/dry/intact, on vent - Cardiovascular Exam Cardiovascular Exam: REGULAR RHYTHM - GI/Abdominal Exam GI & Abdominal Exam: Soft. absent: Distended Additional comments: peg tube in place, dressing c/d/i, no drainage - Skin Skin Exam: Dry, Intact, Normal Color Assessment/Plan (1) Respiratory failure Assessment and plan: Pt s/p trach/peg POD 1 Tubes in good position, dressings are clean and dry gauze under trach will be removed this afternoon PEG can be used for medications and feeding at this time Will remove trach sutures in 10days DW Dr Chan Current Visit: Yes Status: Acute
--- NOTE | 2015-06-21 12:43 | CP.CCUPN ---
<Yesenia Mayer - Last Filed: 06/21/15 13:45> CCU Subjective - Physician Review Events Since Last Encounter (Free Text): Patient seen and examined at bedside today. He is POD #1 s/p Trach and PEG placement. (FiO2 = 40%, PEEP=0, HH=551, RR=16). Patient is tolerating well. No more witnessed seizures since yesterday. Patient does not have a GAG reflex and does not respond to vocal or painful stimulation. He has dolls eyes, corneal reflexes, and has a respiratory drive. Patient has been afebrile. Patient is waiting for placement. Transfer out of ICU today. Subjective (Free Text): CC: Code Heart Patient is a 64 yo M with unknown pmhx who was found unresponsive in driveway by EMS after fall that was witnessed by family. In the field, CPR was given, patient was in asystole and was shocked 3 times, given 1 dose of Epinephrine and started on an Amiodarone drip. In the ED, the patient was found to be in V Fib and was shocked once. He then converted to sinus tachy and given 5000 U of heparin and Versed. He was intubated and an NGT was placed. Afterwards, he was given 600 mg of Plavis and 325 mg of ASA. He was found to have a large gash on the R side of his head so he was taken for a Head CT, which showed on acute intracranial hemorrhage and then to the lab specialist. From Patient's History obtained by Entry Level Software Developer from family: PMHx: unknown type of "heart trouble" that was diagnosed in [place] 15 years ago. no rx or therapy given at that time. He has not seen a physician in 15 years PSHx: Denied Soc: denied EtOH and tobacco Allergy: NKDA meds: none CCU Objective - Vital Signs / Intake & Output Vital Signs (Last 4 hours): Vital Signs Pulse Resp BP Pulse Ox 06/21/15 11:08 60 22 100/66 100 06/21/15 10:08 61 14 104/69 100 06/21/15 09:40 130/70 06/21/15 09:08 65 22 140/82 100 Intake and Output (Last 8hrs): Intake & Output 06/20/15 06/21/15 06/21/15 22:59 06:59 14:59 Intake Total 100 Output Total 860 1035 340 Balance -860 -935 -340 Weight 150 lb 2.157 oz Intake: Other 100 Output: Gastric Amount 25 Stomach 25 Urine 860 1010 340 Urethral (Yoo) 860 1010 340 - Physical Exam Head: Positive for: Normocephalic, Other (Laceration of head) Pupils: Positive for: Other (Dolls eyes) Conjunctiva: Negative for: Injected, Icteric Respiratory/Chest: Positive for: Clear to Auscultation. Negative for: Respiratory Distress, Accessory Muscle Use, Wheezes, Rales Cardiovascular: Positive for: Regular Rate and Rhythm, Normal S1, S2. Negative for: Murmurs, Rub, Gallop Abdomen: Positive for: Normal Bowel Sounds. Negative for: Tenderness, Distention, Peritoneal Signs Upper Extremity: Positive for: Edema, NORMAL PULSES Lower Extremity: Positive for: Normal Inspection, NORMAL PULSES Neurological: Positive for: Other (unresponsive). Negative for: Speech Normal Skin: Positive for: Warm, Normal Color Psychiatric: Negative for: Alert, Oriented x 3 - Medications Active Medications: Active Medications Generic Name Dose Route Start Last Admin Trade Name Freq PRN Reason Stop Dose Admin Amiodarone HCl 200 mg 06/21/15 10:00 06/21/15 09:39 Cordarone PO 200 mg DAILY JOO Administration Aspirin 325 mg 06/21/15 10:00 06/21/15 09:39 Aspirin PO 325 mg DAILY JOO Administration Clopidogrel Bisulfate 75 mg 06/21/15 10:00 06/21/15 09:44 Plavix PO 75 mg DAILY JOO Administration Enalapril Maleate 2.5 mg 06/21/15 10:00 06/21/15 09:40 Vasotec PO 2.5 mg DAILY JOO Administration Famotidine 20 mg 06/21/15 10:00 06/21/15 09:40 Pepcid PO 20 mg BID JOO Administration Fosphenytoin Sodium 100 mg/ 52 mls @ 100 mls/hr 06/21/15 12:00 Dextrose IV Q8H [facility] Piperacillin Sod/Tazobactam Sod 50 mls @ 100 mls/hr 06/21/15 16:00 Zosyn 3.375 Gm Iv Premix IVPB Q8H [facility] Vancomycin HCl 750 mg/ Sodium 250 mls @ 166.6 mls/hr 06/21/15 16:00 Chloride IVPB Q24H [facility] Polyethylene Glycol 17 gm 06/21/15 10:00 06/21/15 09:39 Miralax PO 17 gm DAILY JOO Administration Potassium Chloride 40 meq 06/21/15 10:00 06/21/15 09:40 Potassium Chloride Oral Soln NG 40 meq DAILY JOO Administration - Patient Studies Lab Studies: Microbiology Studies 06/14/15 14:55 Gram Stain - Final Blood Blood Culture - Final NO GROWTH AFTER 5 DAYS 06/14/15 15:20 Gram Stain - Final Blood Blood Culture - Final NO GROWTH AFTER 5 DAYS Lab Studies 06/21/15 06/21/15 06/19/15 Range/Units 07:00 05:18 12:20 WBC 10.2 (4.8-10.8) K/uL RBC 3.87 L (4.40-5.90) Mil/uL Hgb 11.7 L (12.0-18.0) g/dL Hct 36.0 (35.0-51.0) % MCV 93.1 (80.0-94.0) fL MCH 30.3 (27.0-31.0) pg MCHC 32.5 L (33.0-37.0) g/dL RDW 14.2 (11.5-14.5) % Plt Count 275 (130-400) K/uL MPV 8.6 (7.2-11.7) fL Neut % (Auto) 78.8 H (50.0-75.0) % Lymph % (Auto) 8.1 L (20.0-40.0) % Sanders % (Auto) 9.9 (0.0-10.0) % Eos % (Auto) 2.9 (0.0-4.0) % Baso % (Auto) 0.3 (0.0-2.0) % Neut # 8.1 H (1.8-7.0) K/uL Lymph # 0.8 L (1.0-4.3) K/uL Sanders # 1.0 H (0.0-0.8) K/uL Eos # 0.3 (0.0-0.7) K/uL Baso # 0.0 (0.0-0.2) K/uL Neutrophils % (Manual) 76 H (50-75) % Lymphocytes % (Manual) 8 L (20-40) % Monocytes % (Manual) 13 H (0-10) % Eosinophils % (Manual) 3 (0-4) % Platelet Estimate Normal (NORMAL) Large Platelets Present Hypochromasia (manual) Slight Poikilocytosis (manual Slight Anisocytosis (manual) Slight pCO2 24.0 L (35.0-45.0) mm/Hg pO2 147.0 H (80.0-90.0) mm/Hg HCO3 23.6 (22.0-26.0) mmol/L ABG pH 7.600 H* (7.350-7.450) ABG Total CO2 24.3 mmol/L ABG O2 Saturation 100.0 % ABG Base Excess 3.2 mmol/L A-a O2 Difference 108.0 mm/Hg Mechanical Rate 16.000 FiO2 40.000 % Tidal Volume 450.000 Sodium 136 (132-148) mmol/L Potassium 3.6 (3.6-5.0) mmol/L Chloride 107 (98-107) mmol/L Carbon Dioxide 22 (22-30) mmol/L Anion Gap 10 (10-20) BUN 12 (9-20) mg/dL Creatinine 0.7 L (0.8-1.5) mg/dL Est GFR ( Amer) > 60 Est GFR (Non-Af Amer) > 60 POC Glucose (mg/dL) 147 H (65-110) mg/dL Random Glucose 89 (75-110) mg/dL Calcium 7.6 L (8.4-10.2) mg/dL Phosphorus 2.8 (2.5-4.5) mg/dL Magnesium 2.1 (1.6-2.3) mg/dL Total Bilirubin 1.0 (0.2-1.3) mg/dL AST 140 H (17-59) U/L ALT 314 H D (21-72) U/L Alkaline Phosphatase 76 (38-126) U/L Total Protein 5.8 L (6.3-8.2) g/dL Albumin 2.8 L (3.5-5.0) g/dL Globulin 3.0 (2.2-3.9) gm/dL Albumin/Globulin Ratio 0.9 L (1.0-2.1) Laboratory Results - last 24 hr 06/19/15 06/21/15 06/21/15 12:20 05:18 07:00 WBC 10.2 RBC 3.87 L Hgb 11.7 L Hct 36.0 MCV 93.1 MCH 30.3 MCHC 32.5 L RDW 14.2 Plt Count 275 MPV 8.6 Neut % (Auto) 78.8 H Lymph % (Auto) 8.1 L Sanders % (Auto) 9.9 Eos % (Auto) 2.9 Baso % (Auto) 0.3 Neut # 8.1 H Lymph # 0.8 L Sanders # 1.0 H Eos # 0.3 Baso # 0.0 Neutrophils % (Manual) 76 H Lymphocytes % (Manual) 8 L Monocytes % (Manual) 13 H Eosinophils % (Manual) 3 Platelet Estimate Normal Large Platelets Present Hypochromasia (manual) Slight Poikilocytosis (manual Slight Anisocytosis (manual) Slight pCO2 24.0 L pO2 147.0 H HCO3 23.6 ABG pH 7.600 H* ABG Total CO2 24.3 ABG O2 Saturation 100.0 ABG Base Excess 3.2 A-a O2 Difference 108.0 Mechanical Rate 16.000 FiO2 40.000 Tidal Volume 450.000 Sodium 136 Potassium 3.6 Chloride 107 Carbon Dioxide 22 Anion Gap 10 BUN 12 Creatinine 0.7 L Est GFR ( Amer) > 60 Est GFR (Non-Af Amer) > 60 POC Glucose (mg/dL) 147 H Random Glucose 89 Calcium 7.6 L Phosphorus 2.8 Magnesium 2.1 Total Bilirubin 1.0 AST 140 H ALT 314 H D Alkaline Phosphatase 76 Total Protein 5.8 L Albumin 2.8 L Globulin 3.0 Albumin/Globulin Ratio 0.9 L EKG/Cardiology Studies: Cardiology / EKG Studies 06/13/15 20:54 ELECTROCARDIOGRAM Stat Comment: repeat Mode Of Transportation: BED Reason For Exam: cp bed 6 Review of Systems - Review of Systems Systems not reviewed;Unavailable: Intubated Review of Systems: Unable to obtain to anoxic brain injury. Patient is intubated. Assessment/Plan (1) Anoxic encephalopathy Current Visit: Yes Status: Acute Comment: 06/21: S/P Trach and PEG. POD #1 Waiting for placement Transfer out of ICU today Head CT (06/20) - Global ischemia. Diffuse loss of lester white matter differentiation. This is most likely the results of an anoxic event such as cardiac arrest. 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 No evidence of downward herniation or midline shift. Most likely due to cardiac arrest Family still wants full code. Intubated Unresponsive to painful stimuli Palliative care on case (2) Cardiac arrest Current Visit: Yes Status: Acute Comment: S/P V-Tach arrest Continue Amiodarone 200mg daily Cont ASA 325 mg po daily Cont Plavix 75 mg po daily Cont Enalapril 2.5 mg po daily Cont atenolol 12.5mg daily Monitor (3) STEMI (ST elevation myocardial infarction) Current Visit: Yes Status: Acute Comment: Cardiac cath on 06/13 with occluded RCA and left main Continue ASA 325mg PO daily Cont Plavix 75mg PO daily Cont atenolol 12.5mg pO daily Cont Vasotec 2.5mg PO daily (4) Respiratory failure Current Visit: Yes Status: Acute Comment: 06/21 S/P day 1 of trach and PEG with dr. Chan. Patient still on ventilator (5) Seizures Current Visit: Yes Status: Acute Comment: Dr. Garcia on case-help appreciated likely secondary to anoxic injury Fosphenytoin 100mg IVP Q8 + 500mg IVP STAT Ativan 2mg stat dose Monitor (6) Prophylactic measure Current Visit: Yes Status: Acute Comment: Pepcid 20 mg IVP q12 SCD's Plavix Miralax <Zina Trevizo - Last Filed: 06/21/15 15:20> CCU Objective - Vital Signs / Intake & Output Vital Signs (Last 4 hours): Vital Signs Temp Pulse Resp BP Pulse Ox 06/21/15 14:37 97.1 F L 66 20 132/83 100 06/21/15 13:00 60 18 125/76 100 06/21/15 12:00 58 L 20 120/71 100 Intake and Output (Last 8hrs): Intake & Output 06/21/15 06/21/15 06/21/15 06:59 14:59 22:59 Intake Total 100 Output Total 1035 540 Balance -935 -540 Weight 150 lb 2.157 oz Intake: Other 100 Output: Gastric Amount 25 Stomach 25 Urine 1010 540 Urethral (Yoo) 1010 540 - Medications Active Medications: Active Medications Generic Name Dose Route Start Last Admin Trade Name Freq PRN Reason Stop Dose Admin Amiodarone HCl 200 mg 06/21/15 10:00 06/21/15 09:39 Cordarone PO 200 mg DAILY JOO Administration Aspirin 325 mg 06/21/15 10:00 06/21/15 09:39 Aspirin PO 325 mg DAILY JOO Administration Clopidogrel Bisulfate 75 mg 06/21/15 10:00 06/21/15 09:44 Plavix PO 75 mg DAILY [facility]OO Administration Enalapril Maleate 2.5 mg 06/21/15 10:00 06/21/15 09:40 Vasotec PO 2.5 mg DAILY [facility] Administration Famotidine 20 mg 06/21/15 10:00 06/21/15 09:40 Pepcid PO 20 mg BID JOO Administration Fosphenytoin Sodium 100 mg/ 52 mls @ 100 mls/hr 06/21/15 12:00 06/21/15 12:00 Dextrose IV 100 mls/hr Q8H [facility] Administration Piperacillin Sod/Tazobactam Sod 50 mls @ 100 mls/hr 06/21/15 16:00 Zosyn 3.375 Gm Iv Premix IVPB Q8H [facility] Vancomycin HCl 750 mg/ Sodium 250 mls @ 166.6 mls/hr 06/21/15 16:00 Chloride IVPB Q24H [facility] Polyethylene Glycol 17 gm 06/21/15 10:00 06/21/15 09:39 Miralax PO 17 gm DAILY JOO Administration Potassium Chloride 40 meq 06/21/15 10:00 06/21/15 09:40 Potassium Chloride Oral Soln NG 40 meq DAILY JOO Administration - Patient Studies Lab Studies: Lab Studies 06/21/15 06/21/15 06/19/15 Range/Units 07:00 05:18 12:20 WBC 10.2 (4.8-10.8) K/uL RBC 3.87 L (4.40-5.90) Mil/uL Hgb 11.7 L (12.0-18.0) g/dL Hct 36.0 (35.0-51.0) % MCV 93.1 (80.0-94.0) fL MCH 30.3 (27.0-31.0) pg MCHC 32.5 L (33.0-37.0) g/dL RDW 14.2 (11.5-14.5) % Plt Count 275 (130-400) K/uL MPV 8.6 (7.2-11.7) fL Neut % (Auto) 78.8 H (50.0-75.0) % Lymph % (Auto) 8.1 L (20.0-40.0) % Sanders % (Auto) 9.9 (0.0-10.0) % Eos % (Auto) 2.9 (0.0-4.0) % Baso % (Auto) 0.3 (0.0-2.0) % Neut # 8.1 H (1.8-7.0) K/uL Lymph # 0.8 L (1.0-4.3) K/uL Sanders # 1.0 H (0.0-0.8) K/uL Eos # 0.3 (0.0-0.7) K/uL Baso # 0.0 (0.0-0.2) K/uL Neutrophils % (Manual) 76 H (50-75) % Lymphocytes % (Manual) 8 L (20-40) % Monocytes % (Manual) 13 H (0-10) % Eosinophils % (Manual) 3 (0-4) % Platelet Estimate Normal (NORMAL) Large Platelets Present Hypochromasia (manual) Slight Poikilocytosis (manual Slight Anisocytosis (manual) Slight pCO2 24.0 L (35.0-45.0) mm/Hg pO2 147.0 H (80.0-90.0) mm/Hg HCO3 23.6 (22.0-26.0) mmol/L ABG pH 7.600 H* (7.350-7.450) ABG Total CO2 24.3 mmol/L ABG O2 Saturation 100.0 % ABG Base Excess 3.2 mmol/L A-a O2 Difference 108.0 mm/Hg Mechanical Rate 16.000 FiO2 40.000 % Tidal Volume 450.000 Sodium 136 (132-148) mmol/L Potassium 3.6 (3.6-5.0) mmol/L Chloride 107 (98-107) mmol/L Carbon Dioxide 22 (22-30) mmol/L Anion Gap 10 (10-20) BUN 12 (9-20) mg/dL Creatinine 0.7 L (0.8-1.5) mg/dL Est GFR ( Amer) > 60 Est GFR (Non-Af Amer) > 60 POC Glucose (mg/dL) 147 H (65-110) mg/dL Random Glucose 89 (75-110) mg/dL Calcium 7.6 L (8.4-10.2) mg/dL Phosphorus 2.8 (2.5-4.5) mg/dL Magnesium 2.1 (1.6-2.3) mg/dL Total Bilirubin 1.0 (0.2-1.3) mg/dL AST 140 H (17-59) U/L ALT 314 H D (21-72) U/L Alkaline Phosphatase 76 (38-126) U/L Total Protein 5.8 L (6.3-8.2) g/dL Albumin 2.8 L (3.5-5.0) g/dL Globulin 3.0 (2.2-3.9) gm/dL Albumin/Globulin Ratio 0.9 L (1.0-2.1) Laboratory Results - last 24 hr 06/19/15 06/21/15 06/21/15 12:20 05:18 07:00 WBC 10.2 RBC 3.87 L Hgb 11.7 L Hct 36.0 MCV 93.1 MCH 30.3 MCHC 32.5 L RDW 14.2 Plt Count 275 MPV 8.6 Neut % (Auto) 78.8 H Lymph % (Auto) 8.1 L Sanders % (Auto) 9.9 Eos % (Auto) 2.9 Baso % (Auto) 0.3 Neut # 8.1 H Lymph # 0.8 L Sanders # 1.0 H Eos # 0.3 Baso # 0.0 Neutrophils % (Manual) 76 H Lymphocytes % (Manual) 8 L Monocytes % (Manual) 13 H Eosinophils % (Manual) 3 Platelet Estimate Normal Large Platelets Present Hypochromasia (manual) Slight Poikilocytosis (manual Slight Anisocytosis (manual) Slight pCO2 24.0 L pO2 147.0 H HCO3 23.6 ABG pH 7.600 H* ABG Total CO2 24.3 ABG O2 Saturation 100.0 ABG Base Excess 3.2 A-a O2 Difference 108.0 Mechanical Rate 16.000 FiO2 40.000 Tidal Volume 450.000 Sodium 136 Potassium 3.6 Chloride 107 Carbon Dioxide 22 Anion Gap 10 BUN 12 Creatinine 0.7 L Est GFR ( Amer) > 60 Est GFR (Non-Af Amer) > 60 POC Glucose (mg/dL) 147 H Random Glucose 89 Calcium 7.6 L Phosphorus 2.8 Magnesium 2.1 Total Bilirubin 1.0 AST 140 H ALT 314 H D Alkaline Phosphatase 76 Total Protein 5.8 L Albumin 2.8 L Globulin 3.0 Albumin/Globulin Ratio 0.9 L EKG/Cardiology Studies: Cardiology / EKG Studies 06/13/15 20:54 ELECTROCARDIOGRAM Stat Comment: repeat Mode Of Transportation: BED Reason For Exam: bed 6 Attending/Attestation - Attestation I have personally seen and examined this patient.: Yes I have fully participated in the care of the patient.: Yes I have reviewed all pertinent clinical information: Yes Notes (Text): 06/21/15 15:17 Patient seen and examined this am. Neurological exam unchanged, has hiccups and RR 26. Underwent peg and trach yesterday, started feeds at 2 pm . wbc 10.2, no bands, low grade fever. secretions very thin. transfer to the floors today, spoke to the family.
[2015-06-22] MEDS: Piperacill/Tazo 3.375gm in Dex 50 ML IVPB SCH ×4 (01:58→23:01)
[2015-06-22] MEDS: Fosphenytoin 100 MG in Dextrose 5% In Water 50 ML IV SCH ×3 (05:00→21:58)
[2015-06-22 07:53] LABS: BASO % 0.4 % (0.0-2.0); EOS # 0.2 K/uL (0.0-0.7); EOS % 2.3 % (0.0-4.0); HEMOGLOBIN 11.2 g/dL (12.0-18.0); LYMPH # 0.8 K/uL (1.0-4.3); LYMPH % 7.7 % (20.0-40.0); MEAN CELL VOLUME 92.3 fL (80.0-94.0); MEAN CORPUSCULAR HEMOGLOBIN 31.3 pg (27.0-31.0); MEAN CORPUSCULAR HGB CONC 33.9 g/dL (33.0-37.0); MEAN PLATELET VOLUME 8.1 fL (7.2-11.7); MONO # 0.8 K/uL (0.0-0.8); MONO % 8.5 % (0.0-10.0); NEUT % 81.1 % (50.0-75.0); PLATELET COUNT 344 K/uL (130-400); RBC 3.59 Mil/uL (4.40-5.90); RED CELL DISTRIBUTION WIDTH 14.6 % (11.5-14.5); WHITE BLOOD COUNT 9.8 K/uL (4.8-10.8)
--- NOTE | 2015-06-22 08:06 | RAD ---
PROCEDURE: CHEST RADIOGRAPH, 1 VIEW HISTORY: Respiratory Failure COMPARISON: 06/21/2015 FINDINGS: LUNGS: Tracheostomy tube in pace. No focal infiltrate or effusion. Upper lobe granulomatous changes. PLEURA: No pneumothorax or pleural fluid seen. CARDIOVASCULAR: Normal. OSSEOUS STRUCTURES: No significant abnormalities. VISUALIZED UPPER ABDOMEN: Normal. OTHER FINDINGS: None. IMPRESSION: No focal infiltrate or effusion.
[2015-06-22 08:20] LABS: GFR NON-AFRICAN AMERICAN > 60
[2015-06-22 08:21] LABS: BLOOD UREA NITROGEN 16 mg/dL (9-20); CALCIUM 7.8 mg/dL (8.4-10.2)
[2015-06-22 08:40] LABS: LYMPHOCYTE 11 % (20-40); MONOCYTE 8 % (0-10); NEUTROPHIL 81 % (50-75); PLATELET ESTIMATE NORMAL (NORMAL); TOTAL CELLS COUNTED 100
[2015-06-22 08:41] LABS: HYPOCHROMIC SLIGHT
--- NOTE | 2015-06-22 09:20 | CP.PCM.PN ---
Subjective - Subjective Subjective: Pt with trach and Peg vented tx to telemetry Review of Systems - Review of Systems Systems not reviewed;Unavailable: Intubated - Cardiovascular Cardiovascular: UNREMARKABLE Objective - Vital Signs/Intake and Output Vital Signs (last 24 hours): Vital Signs - 24 hr 06/21/15 06/21/15 06/21/15 09:40 10:08 11:08 Temperature Pulse Rate 61 60 Respiratory 14 22 Rate Blood Pressure 130/70 104/69 100/66 O2 Sat by Pulse 100 100 Oximetry 06/21/15 06/21/15 06/21/15 12:00 13:00 14:37 Temperature 97.1 F L Pulse Rate 58 L 60 66 Respiratory 20 18 20 Rate Blood Pressure 120/71 125/76 132/83 O2 Sat by Pulse 100 100 100 Oximetry 06/21/15 06/21/15 06/22/15 15:00 22:12 06:38 Temperature 97.8 F 99.7 F H Pulse Rate 68 67 68 Respiratory 20 20 Rate Blood Pressure 126/78 118/71 O2 Sat by Pulse 99 99 Oximetry Intake and Output (last 12 hours): Intake & Output 06/21/15 06/22/15 06/22/15 18:59 06:59 18:59 Intake Total 854 Output Total 540 600 Balance -540 254 Weight 150 lb 2.157 oz 153 lb Intake: Intake, IV Amount 250 Left Forearm 250 Tube Feeding 604 Output: Urine 540 600 Urethral (Yoo) 540 600 - Medications Medications: Current Medications Amiodarone HCl (Cordarone) 200 mg PO DAILY [facility] Last Admin: 06/21/15 09:39 Dose: 200 mg Aspirin (Aspirin) 325 mg PO DAILY [facility] Last Admin: 06/21/15 09:39 Dose: 325 mg Clopidogrel Bisulfate (Plavix) 75 mg PO DAILY [facility] Last Admin: 06/21/15 09:44 Dose: 75 mg Enalapril Maleate (Vasotec) 2.5 mg PO DAILY [facility] Last Admin: 06/21/15 09:40 Dose: 2.5 mg Famotidine (Pepcid) 20 mg PO BID [facility] Last Admin: 06/21/15 17:54 Dose: 20 mg Fosphenytoin Sodium 100 mg/ (Dextrose) 52 mls @ 100 mls/hr IV Q8H [facility] Last Admin: 06/22/15 05:00 Dose: 100 mls/hr Piperacillin Sod/Tazobactam Sod (Zosyn 3.375 Gm Iv Premix) 50 mls @ 100 mls/hr IVPB Q8H [facility] Last Admin: 06/22/15 08:06 Dose: 100 mls/hr Vancomycin HCl 750 mg/ Sodium (Chloride) 250 mls @ 166.6 mls/hr IVPB Q24H [facility] Last Admin: 06/21/15 17:00 Dose: 166.6 mls/hr Polyethylene Glycol (Miralax) 17 gm PO DAILY [facility] Last Admin: 06/21/15 09:39 Dose: 17 gm Potassium Chloride (Potassium Chloride Oral Soln) 40 meq NG DAILY [facility] Last Admin: 06/21/15 09:40 Dose: 40 meq - Labs Labs (last 24 hours): Laboratory Results - last 24 hr 06/22/15 07:14 WBC 9.8 RBC 3.59 L Hgb 11.2 L Hct 33.1 L MCV 92.3 MCH 31.3 H MCHC 33.9 RDW 14.6 H Plt Count 344 MPV 8.1 Neut % (Auto) 81.1 H Lymph % (Auto) 7.7 L [place] % (Auto) 8.5 Eos % (Auto) 2.3 Baso % (Auto) 0.4 Neut # 8.0 H Lymph # 0.8 L [place] # 0.8 Eos # 0.2 Baso # 0.0 Neutrophils % (Manual) 81 H Lymphocytes % (Manual) 11 L Monocytes % (Manual) 8 Platelet Estimate Normal Hypochromasia (manual) Slight Sodium 137 Potassium 3.3 L Chloride 107 Carbon Dioxide 24 Anion Gap 8 L BUN 16 Creatinine 0.8 Est GFR ( Amer) > 60 Est GFR (Non-Af Amer) > 60 Random Glucose 139 H Calcium 7.8 L Phosphorus 3.5 Magnesium 2.3 - Respiratory Exam Respiratory Exam: Rhonchi, NORMAL BREATHING PATTERN Additional comments: vented - Cardiovascular Exam Cardiovascular Exam: RRR, +S1, +S2, Systolic Murmur Assessment/Plan (1) Anoxic encephalopathy Assessment and plan: No VT hemodynamically stable Social work on case for possible placement Current Visit: Yes Status: Acute Comment: 06/21: S/P Trach and PEG. POD #1 Waiting for placement Transfer out of ICU today Head CT (06/20) - Global ischemia. Diffuse loss of lester white matter differentiation. This is most likely the results of an anoxic event such as cardiac arrest. 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 No evidence of downward herniation or midline shift. Most likely due to cardiac arrest Family still wants full code. Intubated Unresponsive to painful stimuli Palliative care on case (2) Cardiac arrest Current Visit: Yes Status: Acute Comment: S/P V-Tach arrest Continue Amiodarone 200mg daily Cont ASA 325 mg po daily Cont Plavix 75 mg po daily Cont Enalapril 2.5 mg po daily Cont atenolol 12.5mg daily Monitor (3) Laceration of head Current Visit: Yes Status: Acute Comment: s/p sutures, wound care monitor (4) Prophylactic measure Current Visit: Yes Status: Acute Comment: Pepcid 20 mg IVP q12 SCD's Plavix Miralax (5) Respiratory failure Current Visit: Yes Status: Acute Comment: 06/21 S/P day 1 of trach and PEG with dr. Chan. Patient still on ventilator
--- NOTE | 2015-06-22 09:22 | CP.PCM.PN ---
Subjective - Subjective Subjective: CT Surgery Progress note Pt seen and examined. Pt with tracheostomy, on vent at 40%FiO2, 5Peep. Trach and Peg in place in good position, Clean and dry around incision. Gauze under trach removed. Review of Systems - Review of Systems Systems not reviewed;Unavailable: Intubated Objective - Vital Signs/Intake and Output Vital Signs (last 24 hours): Vital Signs - 24 hr 06/21/15 06/21/15 06/21/15 09:40 10:08 11:08 Temperature Pulse Rate 61 60 Respiratory 14 22 Rate Blood Pressure 130/70 104/69 100/66 O2 Sat by Pulse 100 100 Oximetry 06/21/15 06/21/15 06/21/15 12:00 13:00 14:37 Temperature 97.1 F L Pulse Rate 58 L 60 66 Respiratory 20 18 20 Rate Blood Pressure 120/71 125/76 132/83 O2 Sat by Pulse 100 100 100 Oximetry 06/21/15 06/21/15 06/22/15 15:00 22:12 06:38 Temperature 97.8 F 99.7 F H Pulse Rate 68 67 68 Respiratory 20 20 Rate Blood Pressure 126/78 118/71 O2 Sat by Pulse 99 99 Oximetry Intake and Output (last 12 hours): Intake & Output 06/21/15 06/22/15 06/22/15 18:59 06:59 18:59 Intake Total 854 Output Total 540 600 Balance -540 254 Weight 150 lb 2.157 oz 153 lb Intake: Intake, IV Amount 250 Left Forearm 250 Tube Feeding 604 Output: Urine 540 600 Urethral (Yoo) 540 600 - Medications Medications: Current Medications Amiodarone HCl (Cordarone) 200 mg PO DAILY [facility] Last Admin: 06/21/15 09:39 Dose: 200 mg Aspirin (Aspirin) 325 mg PO DAILY [facility] Last Admin: 06/21/15 09:39 Dose: 325 mg Clopidogrel Bisulfate (Plavix) 75 mg PO DAILY [facility] Last Admin: 06/21/15 09:44 Dose: 75 mg Enalapril Maleate (Vasotec) 2.5 mg PO DAILY [facility] Last Admin: 06/21/15 09:40 Dose: 2.5 mg Famotidine (Pepcid) 20 mg PO BID [facility] Last Admin: 06/21/15 17:54 Dose: 20 mg Fosphenytoin Sodium 100 mg/ (Dextrose) 52 mls @ 100 mls/hr IV Q8H [facility] Last Admin: 06/22/15 05:00 Dose: 100 mls/hr Piperacillin Sod/Tazobactam Sod (Zosyn 3.375 Gm Iv Premix) 50 mls @ 100 mls/hr IVPB Q8H [facility] Last Admin: 06/22/15 08:06 Dose: 100 mls/hr Vancomycin HCl 750 mg/ Sodium (Chloride) 250 mls @ 166.6 mls/hr IVPB Q24H [facility] Last Admin: 06/21/15 17:00 Dose: 166.6 mls/hr Polyethylene Glycol (Miralax) 17 gm PO DAILY [facility] Last Admin: 06/21/15 09:39 Dose: 17 gm Potassium Chloride (Potassium Chloride Oral Soln) 40 meq NG DAILY [facility] Last Admin: 06/21/15 09:40 Dose: 40 meq - Labs Labs (last 24 hours): Laboratory Results - last 24 hr 06/22/15 07:14 WBC 9.8 RBC 3.59 L Hgb 11.2 L Hct 33.1 L MCV 92.3 MCH 31.3 H MCHC 33.9 RDW 14.6 H Plt Count 344 MPV 8.1 Neut % (Auto) 81.1 H Lymph % (Auto) 7.7 L [place] % (Auto) 8.5 Eos % (Auto) 2.3 Baso % (Auto) 0.4 Neut # 8.0 H Lymph # 0.8 L [place] # 0.8 Eos # 0.2 Baso # 0.0 Neutrophils % (Manual) 81 H Lymphocytes % (Manual) 11 L Monocytes % (Manual) 8 Platelet Estimate Normal Hypochromasia (manual) Slight Sodium 137 Potassium 3.3 L Chloride 107 Carbon Dioxide 24 Anion Gap 8 L BUN 16 Creatinine 0.8 Est GFR ( Amer) > 60 Est GFR (Non-Af Amer) > 60 Random Glucose 139 H Calcium 7.8 L Phosphorus 3.5 Magnesium 2.3 - Constitutional Appears: No Acute Distress - Head Exam Head Exam: ATRAUMATIC, NORMOCEPHALIC - Respiratory Exam Respiratory Exam: Clear to PA & Lateral, NORMAL BREATHING PATTERN Additional comments: Trach in place, on vent. - Cardiovascular Exam Cardiovascular Exam: REGULAR RHYTHM, +S1, +S2 - GI/Abdominal Exam Additional comments: PEG in place, C/D/I Assessment/Plan (1) Respiratory failure Assessment and plan: Pt s/p trach/peg POD 2 Tubes in good position, dressings are clean and dry Gauze under trach removed PEG being for feeding Will remove trach sutures 06/30/15 RADHA Chan Current Visit: Yes Status: Acute
--- NOTE | 2015-06-22 09:36 | CP.PCM.PN ---
Subjective - Subjective Subjective: Palliative care progress note This is a 64 yo [place] man, transferred off ICU yesterday after being admitted and treated for respiratory distress due to cardiac arrest which resulted in anoxic brain injury. After numerous family meetings with the family, patient remains Code status, FULL CODE, as per family's wishes. Patient is nonverbal, with GCS still remaining 3. The CT head from 06/20/2015 is significant for global ischemia and negative for intracranial hemorrhage. Patient received the PEG and the Trach on 06/20/2015 and both are being used and are functioning well. Repeat CXR one view from this morning showed no focal infiltrate or effusion. The vent setting is decrease to FiO2 40%, PEEP 0, TV 450 and RR 16. There is some respiratory drive. Patient tolerates setting well. He is hemodinamically stable; Hb 11.2. WBC 9.8 down from 10.2; Vancomycin IV and Zosyn IV are still in progress. K 3.2 is being replaced with Potassium 40 mcg daily. The and daughter are visiting daily. Daughter has contacted the [employer] in [place] where her father used to work and earned full health benefices and as per her statement, they found the place in health facility if he should return to [place]. Family's concern is lack of finances but their full intention is to bring him back to [place] once he gets medically stable enough. They asked about Medical transportation to [place] and [place]. BRANDON Xochitl is to get back to them with pricing info. They understand that due to lack of health insurance here in the [facility], he can not be admitted to [facility].The daughter is intensively searching the internet and hoping that the [facility] would provide resources for his transportation. During the last family meeting with the whole Palliative team present ,family was reassured that it was not a possibility. Recommendations - Would contact [facility] and fallow up on discharge plan and transfer options to [place]. This is an exceedingly challenging case with complex physical findings and complex decision making. I have really seen such a difficult symptom complex. In my opinion, this patient is dying. In the face of this prognosis, the primary goal should be the comfort of this patent. DNR/DNI would be appropriate but family relies heavily on cultural norms of [place] culture. Palliative care team will continue to support family during this difficult time. Objective - Vital Signs/Intake and Output Vital Signs (last 24 hours): Vital Signs - 24 hr 06/21/15 06/21/15 06/21/15 09:08 09:40 10:08 Temperature Pulse Rate 65 61 Respiratory 22 14 Rate Blood Pressure 140/82 130/70 104/69 O2 Sat by Pulse 100 100 Oximetry 06/21/15 06/21/15 06/21/15 11:08 12:00 13:00 Temperature Pulse Rate 60 58 L 60 Respiratory 22 20 18 Rate Blood Pressure 100/66 120/71 125/76 O2 Sat by Pulse 100 100 100 Oximetry 06/21/15 06/21/15 06/21/15 14:37 15:00 22:12 Temperature 97.1 F L 97.8 F Pulse Rate 66 68 67 Respiratory 20 20 Rate Blood Pressure 132/83 126/78 O2 Sat by Pulse 100 99 Oximetry 06/22/15 06:38 Temperature 99.7 F H Pulse Rate 68 Respiratory 20 Rate Blood Pressure 118/71 O2 Sat by Pulse 99 Oximetry Intake and Output (last 12 hours): Intake & Output 06/21/15 06/22/15 06/22/15 18:59 06:59 18:59 Intake Total 854 Output Total 540 600 Balance -540 254 Weight 150 lb 2.157 oz 153 lb Intake: Intake, IV Amount 250 Left Forearm 250 Tube Feeding 604 Output: Urine 540 600 Urethral (Yoo) 540 600 - Medications Medications: Current Medications Amiodarone HCl (Cordarone) 200 mg PO DAILY [facility] Last Admin: 06/21/15 09:39 Dose: 200 mg Aspirin (Aspirin) 325 mg PO DAILY [facility] Last Admin: 06/21/15 09:39 Dose: 325 mg Clopidogrel Bisulfate (Plavix) 75 mg PO DAILY [facility] Last Admin: 06/21/15 09:44 Dose: 75 mg Enalapril Maleate (Vasotec) 2.5 mg PO DAILY [facility] Last Admin: 06/21/15 09:40 Dose: 2.5 mg Famotidine (Pepcid) 20 mg PO BID [facility] Last Admin: 06/21/15 17:54 Dose: 20 mg Fosphenytoin Sodium 100 mg/ (Dextrose) 52 mls @ 100 mls/hr IV Q8H [facility] Last Admin: 06/22/15 05:00 Dose: 100 mls/hr Piperacillin Sod/Tazobactam Sod (Zosyn 3.375 Gm Iv Premix) 50 mls @ 100 mls/hr IVPB Q8H [facility] Last Admin: 06/22/15 08:06 Dose: 100 mls/hr Vancomycin HCl 750 mg/ Sodium (Chloride) 250 mls @ 166.6 mls/hr IVPB Q24H [facility] Last Admin: 06/21/15 17:00 Dose: 166.6 mls/hr Polyethylene Glycol (Miralax) 17 gm PO DAILY [facility] Last Admin: 06/21/15 09:39 Dose: 17 gm Potassium Chloride (Potassium Chloride Oral Soln) 40 meq NG DAILY [facility] Last Admin: 06/21/15 09:40 Dose: 40 meq - Labs Labs (last 24 hours): Laboratory Results - last 24 hr 06/22/15 07:14 WBC 9.8 RBC 3.59 L Hgb 11.2 L Hct 33.1 L MCV 92.3 MCH 31.3 H MCHC 33.9 RDW 14.6 H Plt Count 344 MPV 8.1 Neut % (Auto) 81.1 H Lymph % (Auto) 7.7 L [place] % (Auto) 8.5 Eos % (Auto) 2.3 Baso % (Auto) 0.4 Neut # 8.0 H Lymph # 0.8 L [place] # 0.8 Eos # 0.2 Baso # 0.0 Neutrophils % (Manual) 81 H Lymphocytes % (Manual) 11 L Monocytes % (Manual) 8 Platelet Estimate Normal Hypochromasia (manual) Slight Sodium 137 Potassium 3.3 L Chloride 107 Carbon Dioxide 24 Anion Gap 8 L BUN 16 Creatinine 0.8 Est GFR ( Amer) > 60 Est GFR (Non-Af Amer) > 60 Random Glucose 139 H Calcium 7.8 L Phosphorus 3.5 Magnesium 2.3
[2015-06-22] MEDS: POLYETHYLENE GLYCOL 3350 17 GM/Dose PACKET PO SCH (10:45)
[2015-06-22] MEDS: Potassium Chloride 20 mEq/15 ml LIQ UD NG SCH (10:45)
--- NOTE | 2015-06-22 13:12 | CP.PCM.PN ---
<RileyJoel H - Last Filed: 06/22/15 17:01> Subjective - Subjective Subjective: Patient examined at bedside. Patient is unreponsive to both painful and verbal stimulus. Patient is on ventilator. Patient is having some random hiccup like movements. Otherwise patient appears to be in a unreponsive vegatative state. Spoke to family at bedside about transportation to [place]. They said they needed some of his documentation for a transport services. Patient is a undocumented immigrant and most like will not qualify for [facility]. Review of Systems - Review of Systems Systems not reviewed;Unavailable: Acuity of Condition Objective - Vital Signs/Intake and Output Vital Signs (last 24 hours): Vital Signs - 24 hr 06/21/15 06/21/15 06/21/15 14:37 15:00 22:12 Temperature 97.1 F L 97.8 F Pulse Rate 66 68 67 Respiratory 20 20 Rate Blood Pressure 132/83 126/78 O2 Sat by Pulse 100 99 Oximetry 06/22/15 06/22/15 06:38 10:44 Temperature 99.7 F H Pulse Rate 68 Respiratory 20 Rate Blood Pressure 118/71 118/71 O2 Sat by Pulse 99 Oximetry Intake and Output (last 12 hours): Intake & Output 06/21/15 06/22/15 06/22/15 18:59 06:59 18:59 Intake Total 854 Output Total 540 600 Balance -540 254 Weight 150 lb 2.157 oz 153 lb Intake: Intake, IV Amount 250 Left Forearm 250 Tube Feeding 604 Output: Urine 540 600 Urethral (Yoo) 540 600 - Medications Medications: Current Medications Amiodarone HCl (Cordarone) 200 mg PO DAILY [facility] Last Admin: 06/22/15 10:44 Dose: 200 mg Aspirin (Aspirin) 325 mg PO DAILY [facility] Last Admin: 06/22/15 10:44 Dose: 325 mg Clopidogrel Bisulfate (Plavix) 75 mg PO DAILY [facility] Last Admin: 06/22/15 10:44 Dose: 75 mg Enalapril Maleate (Vasotec) 2.5 mg PO DAILY [facility] Last Admin: 06/22/15 10:44 Dose: 2.5 mg Famotidine (Pepcid) 20 mg PO BID [facility] Last Admin: 06/22/15 10:44 Dose: 20 mg Fosphenytoin Sodium 100 mg/ (Dextrose) 52 mls @ 100 mls/hr IV Q8H [facility] Last Admin: 06/22/15 12:23 Dose: 100 mls/hr Piperacillin Sod/Tazobactam Sod (Zosyn 3.375 Gm Iv Premix) 50 mls @ 100 mls/hr IVPB Q8H [facility] Last Admin: 06/22/15 08:06 Dose: 100 mls/hr Vancomycin HCl 750 mg/ Sodium (Chloride) 250 mls @ 166.6 mls/hr IVPB Q24H [facility] Last Admin: 06/21/15 17:00 Dose: 166.6 mls/hr Polyethylene Glycol (Miralax) 17 gm PO DAILY [facility] Last Admin: 06/22/15 10:45 Dose: 17 gm Potassium Chloride (Potassium Chloride Oral Soln) 40 meq NG DAILY [facility] Last Admin: 06/22/15 10:45 Dose: 40 meq - Labs Labs (last 24 hours): Laboratory Results - last 24 hr 06/22/15 07:14 WBC 9.8 RBC 3.59 L Hgb 11.2 L Hct 33.1 L MCV 92.3 MCH 31.3 H MCHC 33.9 RDW 14.6 H Plt Count 344 MPV 8.1 Neut % (Auto) 81.1 H Lymph % (Auto) 7.7 L Bay % (Auto) 8.5 Eos % (Auto) 2.3 Baso % (Auto) 0.4 Neut # 8.0 H Lymph # 0.8 L Bay # 0.8 Eos # 0.2 Baso # 0.0 Neutrophils % (Manual) 81 H Lymphocytes % (Manual) 11 L Monocytes % (Manual) 8 Platelet Estimate Normal Hypochromasia (manual) Slight Sodium 137 Potassium 3.3 L Chloride 107 Carbon Dioxide 24 Anion Gap 8 L BUN 16 Creatinine 0.8 Est GFR ( Amer) > 60 Est GFR (Non-Af Amer) > 60 Random Glucose 139 H Calcium 7.8 L Phosphorus 3.5 Magnesium 2.3 - Constitutional Appears: Other (in a continue vegatative state) - Eye Exam Pupil Exam: Mydriatic Assessment/Plan (1) Anoxic encephalopathy Current Visit: Yes Status: Acute Comment: 06/22 Spoke with family about transporationt to [place], family requested initial reports from admission. Patient is given 25mg of IM Thorazine for hiccup like movements. 06/21: S/P Trach and PEG. POD #1 Waiting for placement Transfer out of ICU today Head CT (06/20) - Global ischemia. Diffuse loss of lester white matter differentiation. This is most likely the results of an anoxic event such as cardiac arrest. 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 No evidence of downward herniation or midline shift. Most likely due to cardiac arrest Family still wants full code. Intubated Unresponsive to painful stimuli Palliative care on case (2) CAD (coronary artery disease) Current Visit: Yes Status: Acute Comment: Cardiac Catheterization showed occluded RCA and LAD (3) STEMI (ST elevation myocardial infarction) Current Visit: Yes Status: Acute Comment: Cardiac cath on 06/13 with occluded RCA and left main Continue ASA 325mg PO daily Cont Plavix 75mg PO daily Cont atenolol 12.5mg pO daily Cont Vasotec 2.5mg PO daily (4) Seizures Current Visit: Yes Status: Acute Comment: 06/22 Continue to monitor, c/w treatment Dr. Garcia on case-help appreciated likely secondary to anoxic injury Fosphenytoin 100mg IVP Q8 + 500mg IVP STAT Ativan 2mg stat dose Monitor (5) Prophylactic measure Current Visit: Yes Status: Acute Comment: Pepcid 20 mg IVP q12 SCD's Plavix Miralax <Amandeep Chavis H - Last Filed: 06/22/15 18:30> Objective - Vital Signs/Intake and Output Vital Signs (last 24 hours): Vital Signs - 24 hr 06/21/15 06/22/15 06/22/15 22:12 06:38 10:44 Temperature 97.8 F 99.7 F H Pulse Rate 67 68 Respiratory 20 20 Rate Blood Pressure 126/78 118/71 118/71 O2 Sat by Pulse 99 99 Oximetry 06/22/15 06/22/15 13:52 14:13 Temperature 99.3 F Pulse Rate 75 68 Respiratory 24 Rate Blood Pressure 110/68 O2 Sat by Pulse 100 Oximetry Intake and Output (last 12 hours): Intake & Output 06/21/15 06/22/15 06/22/15 18:59 06:59 18:59 Intake Total 854 Output Total 540 600 Balance -540 254 Weight 150 lb 2.157 oz 153 lb Intake: Intake, IV Amount 250 Left Forearm 250 Tube Feeding 604 Output: Urine 540 600 Urethral (Yoo) 540 600 - Medications Medications: Current Medications Amiodarone HCl (Cordarone) 200 mg PO DAILY [facility] Last Admin: 06/22/15 10:44 Dose: 200 mg Aspirin (Aspirin) 325 mg PO DAILY [facility] Last Admin: 06/22/15 10:44 Dose: 325 mg Clopidogrel Bisulfate (Plavix) 75 mg PO DAILY [facility] Last Admin: 06/22/15 10:44 Dose: 75 mg Enalapril Maleate (Vasotec) 2.5 mg PO DAILY [facility] Last Admin: 06/22/15 10:44 Dose: 2.5 mg Famotidine (Pepcid) 20 mg PO BID [facility] Last Admin: 06/22/15 17:38 Dose: 20 mg Fosphenytoin Sodium 100 mg/ (Dextrose) 52 mls @ 100 mls/hr IV Q8H [facility] Last Admin: 06/22/15 12:23 Dose: 100 mls/hr Piperacillin Sod/Tazobactam Sod (Zosyn 3.375 Gm Iv Premix) 50 mls @ 100 mls/hr IVPB Q8H [facility] Last Admin: 06/22/15 15:00 Dose: 100 mls/hr Vancomycin HCl 750 mg/ Sodium (Chloride) 250 mls @ 166.6 mls/hr IVPB Q24H [facility] Last Admin: 06/22/15 15:37 Dose: 166.6 mls/hr Polyethylene Glycol (Miralax) 17 gm PO DAILY [facility] Last Admin: 06/22/15 10:45 Dose: 17 gm Potassium Chloride (Potassium Chloride Oral Soln) 40 meq NG DAILY [facility] Last Admin: 06/22/15 10:45 Dose: 40 meq - Labs Labs (last 24 hours): Laboratory Results - last 24 hr 06/22/15 07:14 WBC 9.8 RBC 3.59 L Hgb 11.2 L Hct 33.1 L MCV 92.3 MCH 31.3 H MCHC 33.9 RDW 14.6 H Plt Count 344 MPV 8.1 Neut % (Auto) 81.1 H Lymph % (Auto) 7.7 L Bay % (Auto) 8.5 Eos % (Auto) 2.3 Baso % (Auto) 0.4 Neut # 8.0 H Lymph # 0.8 L Bay # 0.8 Eos # 0.2 Baso # 0.0 Neutrophils % (Manual) 81 H Lymphocytes % (Manual) 11 L Monocytes % (Manual) 8 Platelet Estimate Normal Hypochromasia (manual) Slight Sodium 137 Potassium 3.3 L Chloride 107 Carbon Dioxide 24 Anion Gap 8 L BUN 16 Creatinine 0.8 Est GFR ( Amer) > 60 Est GFR (Non-Af Amer) > 60 Random Glucose 139 H Calcium 7.8 L Phosphorus 3.5 Magnesium 2.3 Assessment/Plan (1) Respiratory failure Current Visit: Yes Status: Acute Comment: 06/21 S/P day 1 of trach and PEG with dr. Chan. Patient still on ventilator (2) Anoxic encephalopathy Current Visit: Yes Status: Acute Comment: 06/22 Spoke with family about transporationt to [place], family requested initial reports from admission. Patient is given 25mg of IM Thorazine for hiccup like movements. 06/21: S/P Trach and PEG. POD #1 Waiting for placement Transfer out of ICU today Head CT (06/20) - Global ischemia. Diffuse loss of lester white matter differentiation. This is most likely the results of an anoxic event such as cardiac arrest. 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 No evidence of downward herniation or midline shift. Most likely due to cardiac arrest Family still wants full code. Intubated Unresponsive to painful stimuli Palliative care on case (3) STEMI (ST elevation myocardial infarction) Current Visit: Yes Status: Acute Comment: Cardiac cath on 06/13 with occluded RCA and left main Continue ASA 325mg PO daily Cont Plavix 75mg PO daily Cont atenolol 12.5mg pO daily Cont Vasotec 2.5mg PO daily (4) Cardiac arrest Current Visit: Yes Status: Acute Comment: S/P V-Tach arrest Continue Amiodarone 200mg daily Cont ASA 325 mg po daily Cont Plavix 75 mg po daily Cont Enalapril 2.5 mg po daily Cont atenolol 12.5mg daily Monitor (5) Seizures Current Visit: Yes Status: Acute Comment: 06/22 Continue to monitor, c/w treatment Dr. Garcia on case-help appreciated likely secondary to anoxic injury Fosphenytoin 100mg IVP Q8 + 500mg IVP STAT Ativan 2mg stat dose Monitor (6) Prophylactic measure Current Visit: Yes Status: Acute Comment: Pepcid 20 mg IVP q12 SCD's Plavix Miralax Attending/Attestation - Attestation I have personally seen and examined this patient.: Yes I have fully participated in the care of the patient.: Yes I have reviewed all pertinent clinical information: Yes Notes (Text): 06/22/15 18:24 Medical Attending: Agree with the above note. Patient was seen and examined by me. The status of which has not changed. I spoke at length with the special education case manager , my concern is that because of the patient's immigration status he may not be able to qualify Medicaid or Medicare. I spoke with the family at bedside as well and they wanted to bring him back to his home country however I am not sure they understand the cost of such transportation especially considering that he is on a mechanical ventilator and PEG. They asked for the HP note and I printed it out and gave them copy. Thank you, Amandeep Chavis 06/22/15 18:30
[2015-06-23] MEDS: Fosphenytoin 100 MG in Dextrose 5% In Water 50 ML IV SCH ×3 (05:45→21:39)
[2015-06-23] MEDS: Piperacill/Tazo 3.375gm in Dex 50 ML IVPB SCH ×2 (08:02→16:14)
[2015-06-23 08:10] LABS: BASO % 0.4 % (0.0-2.0); EOS # 0.2 K/uL (0.0-0.7); HEMOGLOBIN 11.7 g/dL (12.0-18.0); LYMPH # 1.1 K/uL (1.0-4.3); LYMPH % 9.5 % (20.0-40.0); MEAN CELL VOLUME 92.6 fL (80.0-94.0); MEAN CORPUSCULAR HEMOGLOBIN 30.1 pg (27.0-31.0); MEAN CORPUSCULAR HGB CONC 32.5 g/dL (33.0-37.0); MEAN PLATELET VOLUME 7.7 fL (7.2-11.7); MONO # 0.8 K/uL (0.0-0.8); MONO % 6.7 % (0.0-10.0); NEUT # 9.6 K/uL (1.8-7.0); NEUT % 81.4 % (50.0-75.0); PLATELET COUNT 375 K/uL (130-400); RBC 3.89 Mil/uL (4.40-5.90); RED CELL DISTRIBUTION WIDTH 14.4 % (11.5-14.5); WHITE BLOOD COUNT 11.8 K/uL (4.8-10.8)
[2015-06-23 08:33] LABS: ALBUMIN 2.7 g/dL (3.5-5.0)
[2015-06-23 08:36] LABS: AST/SGOT 102 U/L (17-59); GFR NON-AFRICAN AMERICAN > 60
[2015-06-23 08:37] LABS: ALB/GLOB RATIO 0.8 (1.0-2.1); ALT/SGPT 197 U/L (21-72); BLOOD UREA NITROGEN 15 mg/dL (9-20); CALCIUM 7.9 mg/dL (8.4-10.2)
--- NOTE | 2015-06-23 08:52 | PN ---
DATE: 06/23/2015 The patient is in room 554, bed 1. NEUROLOGICAL PROBLEM: Anoxic encephalopathy resulting rigidity stage. PHYSICAL EXAMINATION: VITAL SIGNS: Blood pressure 115/71, pulse rate is 60 and regular, respiratory rate on vent with 22 p er minute. Temperature 98.8 degrees Fahrenheit. NEUROLOGIC: The patient is deeply comatose. Eyes are closed. The patient on tracheostomy support w ith PEG insertion. No spontaneous movement noted on forcible PEG tube opening. Pupils nonreactive to light, some roving conjugate gaze noted. Corneal sluggish. Gag could not be evaluated. All fou r extremities are flaccid, no reflexes noted. Plantars are mute. CONCLUSION: Status post anoxic encephalopathy with support of tracheostomy and PEG for nutrition sup port. From neurological point of view, the patient attained irreversible central nervous system insult. Ov anjelicall, prognosis is very poor. Continue the present management. Dennis Garcia MD cc: [id number] TT: 06/23/2015 08:52:52
[2015-06-23 09:27] LABS: ANISOCYTOSIS SLIGHT; BANDS 1 % (0-0); EOSINOPHIL 2 % (0-4); LYMPHOCYTE 6 % (20-40); MONOCYTE 2 % (0-10); NEUTROPHIL 88 % (50-75); PLATELET ESTIMATE NORMAL (NORMAL); POIKILOCYTOSIS SLIGHT; REACTIVE LYMPHOCYTES 1 % (0-0); TOTAL CELLS COUNTED 100
[2015-06-23 09:28] LABS: BURR CELLS SLIGHT; GIANT PLATELETS PRESENT; HYPOCHROMIC SLIGHT; LARGE PLATELETS PRESENT; OVALOCYTES SLIGHT; TOXIC GRANULATION PRESENT
[2015-06-23] MEDS: Potassium Chloride 20 mEq/15 ml LIQ UD NG SCH (09:32)
[2015-06-23] MEDS: POLYETHYLENE GLYCOL 3350 17 GM/Dose PACKET PO SCH (09:34)
--- NOTE | 2015-06-23 11:44 | CP.PCM.PN ---
<Scout Marinelli - Last Filed: 06/23/15 11:42> Subjective - Subjective Subjective: Pt seen and examined at bedside this morning. Remain unresponsive and intubated. No acute events overnight. Review of Systems - Review of Systems Systems not reviewed;Unavailable: Intubated Objective - Vital Signs/Intake and Output Vital Signs (last 24 hours): Vital Signs - 24 hr 06/22/15 06/22/15 06/22/15 13:52 14:13 19:00 Temperature 99.3 F Pulse Rate 75 68 66 Respiratory 24 Rate Blood Pressure 110/68 O2 Sat by Pulse 100 Oximetry 06/22/15 06/23/15 06/23/15 22:04 05:40 09:34 Temperature 100.4 F H 98.8 F Pulse Rate 72 60 Respiratory 20 22 Rate Blood Pressure 157/95 H 115/71 115/71 O2 Sat by Pulse 100 98 Oximetry 06/23/15 11:10 Temperature Pulse Rate 58 L Respiratory Rate Blood Pressure O2 Sat by Pulse Oximetry Intake and Output (last 12 hours): Intake & Output 06/22/15 06/23/15 06/23/15 18:59 06:59 18:59 Intake Total 1030 Output Total 1000 Balance 30 Intake: Intake, IV Amount 500 Left Forearm 250 L FA #18 250 Tube Feeding 480 Other 50 Output: Urine 1000 Urethral (Yoo) 1000 - Medications Medications: Current Medications Amiodarone HCl (Cordarone) 200 mg PO DAILY [facility] Last Admin: 06/23/15 09:33 Dose: 200 mg Aspirin (Aspirin) 325 mg PO DAILY [facility] Last Admin: 06/23/15 09:33 Dose: 325 mg Clopidogrel Bisulfate (Plavix) 75 mg PO DAILY [facility] Last Admin: 06/23/15 09:33 Dose: 75 mg Enalapril Maleate (Vasotec) 2.5 mg PO DAILY [facility] Last Admin: 06/23/15 09:34 Dose: 2.5 mg Famotidine (Pepcid) 20 mg PO BID [facility] Last Admin: 06/23/15 09:33 Dose: 20 mg Fosphenytoin Sodium 100 mg/ (Dextrose) 52 mls @ 100 mls/hr IV Q8H [facility] Last Admin: 06/23/15 11:41 Dose: 100 mls/hr Piperacillin Sod/Tazobactam Sod (Zosyn 3.375 Gm Iv Premix) 50 mls @ 100 mls/hr IVPB Q8H [facility] Last Admin: 06/23/15 08:02 Dose: 100 mls/hr Vancomycin HCl 750 mg/ Sodium (Chloride) 250 mls @ 166.6 mls/hr IVPB Q24H [facility] Last Admin: 06/22/15 15:37 Dose: 166.6 mls/hr Polyethylene Glycol (Miralax) 17 gm PO DAILY [facility] Last Admin: 06/23/15 09:34 Dose: 17 gm Potassium Chloride (Potassium Chloride Oral Soln) 40 meq NG DAILY [facility] Last Admin: 06/23/15 09:32 Dose: 40 meq - Labs Labs (last 24 hours): Laboratory Results - last 24 hr 06/23/15 07:28 WBC 11.8 H RBC 3.89 L Hgb 11.7 L Hct 36.0 MCV 92.6 MCH 30.1 MCHC 32.5 L RDW 14.4 Plt Count 375 MPV 7.7 Neut % (Auto) 81.4 H Lymph % (Auto) 9.5 L Keith % (Auto) 6.7 Eos % (Auto) 2.0 Baso % (Auto) 0.4 Neut # 9.6 H Lymph # 1.1 Keith # 0.8 Eos # 0.2 Baso # 0.0 Neutrophils % (Manual) 88 H Band Neutrophils % 1 H Lymphocytes % (Manual) 6 L Reactive Lymphs % 1 H Monocytes % (Manual) 2 Eosinophils % (Manual) 2 Toxic Granulation Present Platelet Estimate Normal Large Platelets Present Giant Platelets Present Hypochromasia (manual) Slight Poikilocytosis (manual Slight Anisocytosis (manual) Slight Ovalocytes Slight Lily Cells Slight Sodium 136 Potassium 3.7 Chloride 106 Carbon Dioxide 25 Anion Gap 9 L BUN 15 Creatinine 0.8 Est GFR ( Amer) > 60 Est GFR (Non-Af Amer) > 60 Random Glucose 133 H Calcium 7.9 L Phosphorus 3.8 Magnesium 2.2 Total Bilirubin 0.4 AST 102 H D ALT 197 H D Alkaline Phosphatase 83 Total Protein 6.0 L Albumin 2.7 L Globulin 3.3 Albumin/Globulin Ratio 0.8 L - Constitutional Appears: No Acute Distress - Respiratory Exam Additional comments: on ventilator - Cardiovascular Exam Cardiovascular Exam: REGULAR RHYTHM - GI/Abdominal Exam Additional comments: PEG in place, dressing C/D/I Assessment/Plan - Assessment and Plan (Free Text) Assessment: (1) Anoxic encephalopathy Current Visit: Yes Status: Acute Comment: 06/23 No acute changes. S/P trach and PEG placement, POD#3. 06/22 Spoke with family about transporationt to [place], family requested initial reports from admission. Patient is given 25mg of IM Thorazine for hiccup like movements. 06/21: S/P Trach and PEG. POD #1 Waiting for placement Transfer out of ICU today Head CT (06/20) - Global ischemia. Diffuse loss of lester white matter differentiation. This is most likely the results of an anoxic event such as cardiac arrest. 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 No evidence of downward herniation or midline shift. Most likely due to cardiac arrest Family still wants full code. Intubated Unresponsive to painful stimuli Palliative care on case <Amandeep Chavis - Last Filed: 06/23/15 12:01> Objective - Vital Signs/Intake and Output Vital Signs (last 24 hours): Vital Signs - 24 hr 06/22/15 06/22/15 06/22/15 13:52 14:13 19:00 Temperature 99.3 F Pulse Rate 75 68 66 Respiratory 24 Rate Blood Pressure 110/68 O2 Sat by Pulse 100 Oximetry 06/22/15 06/23/15 06/23/15 22:04 05:40 09:34 Temperature 100.4 F H 98.8 F Pulse Rate 72 60 Respiratory 20 22 Rate Blood Pressure 157/95 H 115/71 115/71 O2 Sat by Pulse 100 98 Oximetry 06/23/15 11:10 Temperature Pulse Rate 58 L Respiratory Rate Blood Pressure O2 Sat by Pulse Oximetry Intake and Output (last 12 hours): Intake & Output 06/22/15 06/23/15 06/23/15 18:59 06:59 18:59 Intake Total 1030 Output Total 1000 Balance 30 Intake: Intake, IV Amount 500 Left Forearm 250 L FA #18 250 Tube Feeding 480 Other 50 Output: Urine 1000 Urethral (Yoo) 1000 - Medications Medications: Current Medications Amiodarone HCl (Cordarone) 200 mg PO DAILY [facility] Last Admin: 06/23/15 09:33 Dose: 200 mg Aspirin (Aspirin) 325 mg PO DAILY [facility] Last Admin: 06/23/15 09:33 Dose: 325 mg Clopidogrel Bisulfate (Plavix) 75 mg PO DAILY [facility] Last Admin: 06/23/15 09:33 Dose: 75 mg Enalapril Maleate (Vasotec) 2.5 mg PO DAILY [facility] Last Admin: 06/23/15 09:34 Dose: 2.5 mg Famotidine (Pepcid) 20 mg PO BID [facility] Last Admin: 06/23/15 09:33 Dose: 20 mg Fosphenytoin Sodium 100 mg/ (Dextrose) 52 mls @ 100 mls/hr IV Q8H [facility] Last Admin: 06/23/15 11:41 Dose: 100 mls/hr Piperacillin Sod/Tazobactam Sod (Zosyn 3.375 Gm Iv Premix) 50 mls @ 100 mls/hr IVPB Q8H [facility] Last Admin: 06/23/15 08:02 Dose: 100 mls/hr Vancomycin HCl 750 mg/ Sodium (Chloride) 250 mls @ 166.6 mls/hr IVPB Q24H [facility] Last Admin: 06/22/15 15:37 Dose: 166.6 mls/hr Polyethylene Glycol (Miralax) 17 gm PO DAILY [facility] Last Admin: 06/23/15 09:34 Dose: 17 gm Potassium Chloride (Potassium Chloride Oral Soln) 40 meq NG DAILY [facility] Last Admin: 06/23/15 09:32 Dose: 40 meq - Labs Labs (last 24 hours): Laboratory Results - last 24 hr 06/23/15 07:28 WBC 11.8 H RBC 3.89 L Hgb 11.7 L Hct 36.0 MCV 92.6 MCH 30.1 MCHC 32.5 L RDW 14.4 Plt Count 375 MPV 7.7 Neut % (Auto) 81.4 H Lymph % (Auto) 9.5 L Keith % (Auto) 6.7 Eos % (Auto) 2.0 Baso % (Auto) 0.4 Neut # 9.6 H Lymph # 1.1 Keith # 0.8 Eos # 0.2 Baso # 0.0 Neutrophils % (Manual) 88 H Band Neutrophils % 1 H Lymphocytes % (Manual) 6 L Reactive Lymphs % 1 H Monocytes % (Manual) 2 Eosinophils % (Manual) 2 Toxic Granulation Present Platelet Estimate Normal Large Platelets Present Giant Platelets Present Hypochromasia (manual) Slight Poikilocytosis (manual Slight Anisocytosis (manual) Slight Ovalocytes Slight Lily Cells Slight Sodium 136 Potassium 3.7 Chloride 106 Carbon Dioxide 25 Anion Gap 9 L BUN 15 Creatinine 0.8 Est GFR ( Amer) > 60 Est GFR (Non-Af Amer) > 60 Random Glucose 133 H Calcium 7.9 L Phosphorus 3.8 Magnesium 2.2 Total Bilirubin 0.4 AST 102 H D ALT 197 H D Alkaline Phosphatase 83 Total Protein 6.0 L Albumin 2.7 L Globulin 3.3 Albumin/Globulin Ratio 0.8 L Assessment/Plan (1) Respiratory failure Current Visit: Yes Status: Acute Comment: 06/21 S/P day 1 of trach and PEG with dr. Chan. Patient still on ventilator (2) Anoxic encephalopathy Current Visit: Yes Status: Acute Comment: 06/22 Spoke with family about transporationt to [place], family requested initial reports from admission. Patient is given 25mg of IM Thorazine for hiccup like movements. 06/21: S/P Trach and PEG. POD #1 Waiting for placement Transfer out of ICU today Head CT (06/20) - Global ischemia. Diffuse loss of lester white matter differentiation. This is most likely the results of an anoxic event such as cardiac arrest. 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 No evidence of downward herniation or midline shift. Most likely due to cardiac arrest Family still wants full code. Intubated Unresponsive to painful stimuli Palliative care on case (3) STEMI (ST elevation myocardial infarction) Current Visit: Yes Status: Acute Comment: Cardiac cath on 06/13 with occluded RCA and left main Continue ASA 325mg PO daily Cont Plavix 75mg PO daily Cont atenolol 12.5mg pO daily Cont Vasotec 2.5mg PO daily (4) Cardiac arrest Current Visit: Yes Status: Acute Comment: S/P V-Tach arrest Continue Amiodarone 200mg daily Cont ASA 325 mg po daily Cont Plavix 75 mg po daily Cont Enalapril 2.5 mg po daily Cont atenolol 12.5mg daily Monitor (5) Seizures Current Visit: Yes Status: Acute Comment: 06/22 Continue to monitor, c/w treatment Dr. Garcia on case-help appreciated likely secondary to anoxic injury Fosphenytoin 100mg IVP Q8 + 500mg IVP STAT Ativan 2mg stat dose Monitor (6) Prophylactic measure Current Visit: Yes Status: Acute Comment: Pepcid 20 mg IVP q12 SCD's Plavix Miralax Attending/Attestation - Attestation I have personally seen and examined this patient.: Yes I have fully participated in the care of the patient.: Yes I have reviewed all pertinent clinical information: Yes Notes (Text): 06/23/15 12:00 Medical Attending: Agree with the above note by resident. Patient seen and examined by me as well. No acute changes. Will DC Vancomycin. Blood cultures have been negative so far. Thank you Amandeep Chavis
--- NOTE | 2015-06-23 12:19 | CP.PCM.PN ---
Subjective - Subjective Subjective: Pt seen and examined at bedside. Pt is unresponsive. He does not appear to be in any pain. Trach and PEG are in place and functioning appropriately. Objective - Vital Signs/Intake and Output Vital Signs (last 24 hours): Vital Signs - 24 hr 06/22/15 06/22/15 06/22/15 13:52 14:13 19:00 Temperature 99.3 F Pulse Rate 75 68 66 Respiratory 24 Rate Blood Pressure 110/68 O2 Sat by Pulse 100 Oximetry 06/22/15 06/23/15 06/23/15 22:04 05:40 09:34 Temperature 100.4 F H 98.8 F Pulse Rate 72 60 Respiratory 20 22 Rate Blood Pressure 157/95 H 115/71 115/71 O2 Sat by Pulse 100 98 Oximetry 06/23/15 11:10 Temperature Pulse Rate 58 L Respiratory Rate Blood Pressure O2 Sat by Pulse Oximetry Intake and Output (last 12 hours): Intake & Output 06/22/15 06/23/15 06/23/15 18:59 06:59 18:59 Intake Total 1030 Output Total 1000 Balance 30 Intake: Intake, IV Amount 500 Left Forearm 250 L FA #18 250 Tube Feeding 480 Other 50 Output: Urine 1000 Urethral (Yoo) 1000 - Medications Medications: Current Medications Amiodarone HCl (Cordarone) 200 mg PO DAILY [facility] Last Admin: 06/23/15 09:33 Dose: 200 mg Aspirin (Aspirin) 325 mg PO DAILY [facility] Last Admin: 06/23/15 09:33 Dose: 325 mg Clopidogrel Bisulfate (Plavix) 75 mg PO DAILY [facility] Last Admin: 06/23/15 09:33 Dose: 75 mg Enalapril Maleate (Vasotec) 2.5 mg PO DAILY [facility] Last Admin: 06/23/15 09:34 Dose: 2.5 mg Famotidine (Pepcid) 20 mg PO BID [facility] Last Admin: 06/23/15 09:33 Dose: 20 mg Fosphenytoin Sodium 100 mg/ (Dextrose) 52 mls @ 100 mls/hr IV Q8H [facility] Last Admin: 06/23/15 05:45 Dose: 100 mls/hr Piperacillin Sod/Tazobactam Sod (Zosyn 3.375 Gm Iv Premix) 50 mls @ 100 mls/hr IVPB Q8H [facility] Last Admin: 08/01/15 08:02 Dose: 100 mls/hr Vancomycin HCl 750 mg/ Sodium (Chloride) 250 mls @ 166.6 mls/hr IVPB Q24H [facility] Last Admin: 06/22/15 15:37 Dose: 166.6 mls/hr Polyethylene Glycol (Miralax) 17 gm PO DAILY [facility] Last Admin: 06/23/15 09:34 Dose: 17 gm Potassium Chloride (Potassium Chloride Oral Soln) 40 meq NG DAILY [facility] Last Admin: 06/23/15 09:32 Dose: 40 meq - Labs Labs (last 24 hours): Laboratory Results - last 24 hr 06/23/15 07:28 WBC 11.8 H RBC 3.89 L Hgb 11.7 L Hct 36.0 MCV 92.6 MCH 30.1 MCHC 32.5 L RDW 14.4 Plt Count 375 MPV 7.7 Neut % (Auto) 81.4 H Lymph % (Auto) 9.5 L [place] % (Auto) 6.7 Eos % (Auto) 2.0 Baso % (Auto) 0.4 Neut # 9.6 H Lymph # 1.1 [place] # 0.8 Eos # 0.2 Baso # 0.0 Neutrophils % (Manual) 88 H Band Neutrophils % 1 H Lymphocytes % (Manual) 6 L Reactive Lymphs % 1 H Monocytes % (Manual) 2 Eosinophils % (Manual) 2 Toxic Granulation Present Platelet Estimate Normal Large Platelets Present Giant Platelets Present Hypochromasia (manual) Slight Poikilocytosis (manual Slight Anisocytosis (manual) Slight Ovalocytes Slight [place] Cells Slight Sodium 136 Potassium 3.7 Chloride 106 Carbon Dioxide 25 Anion Gap 9 L BUN 15 Creatinine 0.8 Est GFR ( Amer) > 60 Est GFR (Non-Af Amer) > 60 Random Glucose 133 H Calcium 7.9 L Phosphorus 3.8 Magnesium 2.2 Total Bilirubin 0.4 AST 102 H D ALT 197 H D Alkaline Phosphatase 83 Total Protein 6.0 L Albumin 2.7 L Globulin 3.3 Albumin/Globulin Ratio 0.8 L - Constitutional Appears: Cachectic - Head Exam Head Exam: NORMAL INSPECTION - ENT Exam Additional comments: Trach in place, C/D/I, no surrounding erythema or leak - Respiratory Exam Additional comments: mechanical breath sounds - GI/Abdominal Exam Additional comments: PEG tube in place , site C/D/I no erythema or leakage Assessment/Plan - Assessment and Plan (Free Text) Assessment: 64M unresponsive male S/P cardiac arrest/anoxic brain injury - Trach/PEG placed Plan: GENERAL SURGERY PROGRESS NOTE Attending: Dr. Chan TRACH/PEG both stable, C/D/I, no sign of infection or leak Cont management as per medical team. I will review this case with my attending. Michel Dueñas DO, PGY1 - Date & Time Date: 06/23/15 Time: 12:19
[2015-06-24] MEDS: Fosphenytoin 100 MG in Dextrose 5% In Water 50 ML IV SCH ×3 (03:36→21:44)
[2015-06-24] MEDS: Piperacill/Tazo 3.375gm in Dex 50 ML IVPB SCH ×4 (08:25→23:19)
[2015-06-24 08:51] LABS: BASO % 0.3 % (0.0-2.0); EOS # 0.2 K/uL (0.0-0.7); EOS % 1.7 % (0.0-4.0); HEMOGLOBIN 11.2 g/dL (12.0-18.0); LYMPH # 0.8 K/uL (1.0-4.3); LYMPH % 6.8 % (20.0-40.0); MEAN CELL VOLUME 92.7 fL (80.0-94.0); MEAN CORPUSCULAR HEMOGLOBIN 30.5 pg (27.0-31.0); MEAN CORPUSCULAR HGB CONC 32.9 g/dL (33.0-37.0); MEAN PLATELET VOLUME 7.5 fL (7.2-11.7); MONO # 0.8 K/uL (0.0-0.8); MONO % 6.3 % (0.0-10.0); NEUT # 10.5 K/uL (1.8-7.0); NEUT % 84.9 % (50.0-75.0); PLATELET COUNT 449 K/uL (130-400); RBC 3.69 Mil/uL (4.40-5.90); RED CELL DISTRIBUTION WIDTH 14.8 % (11.5-14.5); WHITE BLOOD COUNT 12.3 K/uL (4.8-10.8)
[2015-06-24 09:07] LABS: ALBUMIN 2.8 g/dL (3.5-5.0)
[2015-06-24 09:10] LABS: ALB/GLOB RATIO 0.8 (1.0-2.1); ALT/SGPT 176 U/L (21-72); AST/SGOT 128 U/L (17-59); BLOOD UREA NITROGEN 15 mg/dL (9-20); GFR NON-AFRICAN AMERICAN > 60
--- NOTE | 2015-06-24 09:17 | CP.PCM.PN ---
<Scout Marinelli - Last Filed: 06/24/15 09:14> Subjective - Subjective Subjective: Pt seen and examined at bedside this morning. Pt unresponsive and intubated. No acute events overnight. Per nurse pt's hiccups are getting more frequent. Review of Systems - Review of Systems Systems not reviewed;Unavailable: Intubated Objective - Vital Signs/Intake and Output Vital Signs (last 24 hours): Vital Signs - 24 hr 06/23/15 06/23/15 06/23/15 09:34 11:10 14:00 Temperature 96.8 F L Pulse Rate 58 L 60 Respiratory 20 Rate Blood Pressure 115/71 O2 Sat by Pulse 100 Oximetry 06/23/15 06/23/15 06/24/15 17:43 21:43 05:50 Temperature 98.1 F 99 F Pulse Rate 64 72 Respiratory 22 20 22 Rate Blood Pressure 109/60 116/72 106/66 O2 Sat by Pulse 100 100 Oximetry Intake and Output (last 12 hours): Intake & Output 06/23/15 06/24/15 06/24/15 18:59 06:59 18:59 Intake Total 720 580 Output Total 1025 1400 Balance -305 -820 Intake: Tube Feeding 720 580 Output: Urine 1025 1400 Urethral (Yoo) 1025 1400 Other: # Bowel Movements 0 - Medications Medications: Current Medications Amiodarone HCl (Cordarone) 200 mg PO DAILY [facility] Last Admin: 06/23/15 09:33 Dose: 200 mg Aspirin (Aspirin) 325 mg PO DAILY [facility] Last Admin: 06/23/15 09:33 Dose: 325 mg Clopidogrel Bisulfate (Plavix) 75 mg PO DAILY [facility] Last Admin: 06/23/15 09:33 Dose: 75 mg Enalapril Maleate (Vasotec) 2.5 mg PO DAILY [facility] Last Admin: 06/23/15 09:34 Dose: 2.5 mg Famotidine (Pepcid) 20 mg PO BID [facility] Last Admin: 06/23/15 18:08 Dose: 20 mg Fosphenytoin Sodium 100 mg/ (Dextrose) 52 mls @ 100 mls/hr IV Q8H [facility] Last Admin: 06/24/15 03:36 Dose: 100 mls/hr Piperacillin Sod/Tazobactam Sod (Zosyn 3.375 Gm Iv Premix) 50 mls @ 100 mls/hr IVPB Q8H [facility] Last Admin: 06/24/15 08:25 Dose: 100 mls/hr Polyethylene Glycol (Miralax) 17 gm PO DAILY [facility] Last Admin: 06/23/15 09:34 Dose: 17 gm Potassium Chloride (Potassium Chloride Oral Soln) 40 meq NG DAILY [facility] Last Admin: 06/23/15 09:32 Dose: 40 meq - Labs Labs (last 24 hours): Laboratory Results - last 24 hr 06/23/15 06/24/15 07:28 08:20 WBC 12.3 H RBC 3.69 L Hgb 11.2 L Hct 34.2 L MCV 92.7 MCH 30.5 MCHC 32.9 L RDW 14.8 H Plt Count 449 H MPV 7.5 Neut % (Auto) 84.9 H Lymph % (Auto) 6.8 L [place] % (Auto) 6.3 Eos % (Auto) 1.7 Baso % (Auto) 0.3 Neut # 10.5 H Lymph # 0.8 L [place] # 0.8 Eos # 0.2 Baso # 0.0 Neutrophils % (Manual) 88 H Band Neutrophils % 1 H Lymphocytes % (Manual) 6 L Reactive Lymphs % 1 H Monocytes % (Manual) 2 Eosinophils % (Manual) 2 Toxic Granulation Present Platelet Estimate Normal Large Platelets Present Giant Platelets Present Hypochromasia (manual) Slight Poikilocytosis (manual Slight Anisocytosis (manual) Slight Ovalocytes Slight [place] Cells Slight - Respiratory Exam Additional comments: On vent. Hiccups were noted during inspiration, more frequent than yesterday. - Neurological Exam Additional comments: Unresponsive Assessment/Plan (1) Anoxic encephalopathy Current Visit: Yes Status: Acute Comment: 06/24: No acute changes. Gave Thorazine 25mg IM to control hiccups. S/P trach and PEG placement, POD#4. 06/23: No acute changes. S/P trach and PEG placement, POD#3. 06/22 Spoke with family about transporationt to [place], family requested initial reports from admission. Patient is given 25mg of IM Thorazine for hiccup like movements. 06/21: S/P Trach and PEG. POD #1 Waiting for placement Transfer out of ICU today Head CT (06/20) - Global ischemia. Diffuse loss of lester white matter differentiation. This is most likely the results of an anoxic event such as cardiac arrest. 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 No evidence of downward herniation or midline shift. Most likely due to cardiac arrest Family still wants full code. Intubated Unresponsive to painful stimuli Palliative care on case <Amandeep Chavis H - Last Filed: 06/24/15 10:50> Objective - Vital Signs/Intake and Output Vital Signs (last 24 hours): Vital Signs - 24 hr 06/23/15 06/23/15 06/23/15 11:10 14:00 17:43 Temperature 96.8 F L Pulse Rate 58 L 60 Respiratory 20 22 Rate Blood Pressure 109/60 O2 Sat by Pulse 100 Oximetry 06/23/15 06/24/15 06/24/15 21:43 05:50 09:45 Temperature 98.1 F 99 F Pulse Rate 64 72 Respiratory 20 22 Rate Blood Pressure 116/72 106/66 106/66 O2 Sat by Pulse 100 100 Oximetry Intake and Output (last 12 hours): Intake & Output 06/23/15 06/24/15 06/24/15 18:59 06:59 18:59 Intake Total 720 580 Output Total 1025 1400 Balance -305 -820 Intake: Tube Feeding 720 580 Output: Urine 1025 1400 Urethral (Yoo) 1025 1400 Other: # Bowel Movements 0 - Medications Medications: Current Medications Amiodarone HCl (Cordarone) 200 mg PO DAILY [facility] Last Admin: 06/24/15 09:46 Dose: 200 mg Aspirin (Aspirin) 325 mg PO DAILY [facility] Last Admin: 06/24/15 09:45 Dose: 325 mg Clopidogrel Bisulfate (Plavix) 75 mg PO DAILY [facility] Last Admin: 06/24/15 09:45 Dose: 75 mg Enalapril Maleate (Vasotec) 2.5 mg PO DAILY [facility] Last Admin: 06/24/15 09:45 Dose: 2.5 mg Famotidine (Pepcid) 20 mg PO BID [facility] Last Admin: 06/24/15 09:45 Dose: 20 mg Fosphenytoin Sodium 100 mg/ (Dextrose) 52 mls @ 100 mls/hr IV Q8H [facility] Last Admin: 06/24/15 03:36 Dose: 100 mls/hr Piperacillin Sod/Tazobactam Sod (Zosyn 3.375 Gm Iv Premix) 50 mls @ 100 mls/hr IVPB Q8H [facility] Last Admin: 06/24/15 08:25 Dose: 100 mls/hr Polyethylene Glycol (Miralax) 17 gm PO DAILY [facility] Last Admin: 06/24/15 09:46 Dose: 17 gm Potassium Chloride (Potassium Chloride Oral Soln) 40 meq NG DAILY [facility] Last Admin: 06/24/15 09:46 Dose: 40 meq - Labs Labs (last 24 hours): Laboratory Results - last 24 hr 06/24/15 06/24/15 08:18 08:20 WBC 12.3 H RBC 3.69 L Hgb 11.2 L Hct 34.2 L MCV 92.7 MCH 30.5 MCHC 32.9 L RDW 14.8 H Plt Count 449 H MPV 7.5 Neut % (Auto) 84.9 H Lymph % (Auto) 6.8 L [place] % (Auto) 6.3 Eos % (Auto) 1.7 Baso % (Auto) 0.3 Neut # 10.5 H Lymph # 0.8 L [place] # 0.8 Eos # 0.2 Baso # 0.0 Sodium 135 Potassium 4.0 Chloride 102 Carbon Dioxide 25 Anion Gap 12 BUN 15 Creatinine 0.7 L Est GFR ( Amer) > 60 Est GFR (Non-Af Amer) > 60 Random Glucose 129 H Calcium 8.0 L Phosphorus 4.2 Magnesium 2.3 Total Bilirubin 0.4 AST 128 H D ALT 176 H Alkaline Phosphatase 92 Total Protein 6.3 Albumin 2.8 L Globulin 3.6 Albumin/Globulin Ratio 0.8 L Assessment/Plan (1) Respiratory failure Current Visit: Yes Status: Acute Comment: 06/21 S/P day 1 of trach and PEG with dr. Chan. Patient still on ventilator (2) Anoxic encephalopathy Current Visit: Yes Status: Acute Comment: 06/24: No acute changes. Gave Thorazine 25mg IM to control hiccups. S/P trach and PEG placement, POD#4. 06/23: No acute changes. S/P trach and PEG placement, POD#3. 06/22 Spoke with family about transporationt to [place], family requested initial reports from admission. Patient is given 25mg of IM Thorazine for hiccup like movements. 06/21: S/P Trach and PEG. POD #1 Waiting for placement Transfer out of ICU today Head CT (06/20) - Global ischemia. Diffuse loss of lester white matter differentiation. This is most likely the results of an anoxic event such as cardiac arrest. 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 No evidence of downward herniation or midline shift. Most likely due to cardiac arrest Family still wants full code. Intubated Unresponsive to painful stimuli Palliative care on case (3) STEMI (ST elevation myocardial infarction) Current Visit: Yes Status: Acute Comment: Cardiac cath on 06/13 with occluded RCA and left main Continue ASA 325mg PO daily Cont Plavix 75mg PO daily Cont atenolol 12.5mg pO daily Cont Vasotec 2.5mg PO daily (4) Cardiac arrest Current Visit: Yes Status: Acute Comment: S/P V-Tach arrest Continue Amiodarone 200mg daily Cont ASA 325 mg po daily Cont Plavix 75 mg po daily Cont Enalapril 2.5 mg po daily Cont atenolol 12.5mg daily Monitor (5) Seizures Current Visit: Yes Status: Acute Comment: 06/22 Continue to monitor, c/w treatment Dr. Garcia on case-help appreciated likely secondary to anoxic injury Fosphenytoin 100mg IVP Q8 + 500mg IVP STAT Ativan 2mg stat dose Monitor (6) Prophylactic measure Current Visit: Yes Status: Acute Comment: Pepcid 20 mg IVP q12 SCD's Plavix Miralax Attending/Attestation - Attestation I have personally seen and examined this patient.: Yes I have fully participated in the care of the patient.: Yes I have reviewed all pertinent clinical information: Yes Notes (Text): 06/24/15 10:47 Medical Attending: No acute changes from before. Agree with the above note by resident. Patient was having a lot of hiccups, agree with the thorazine being given. Will have to monitor. Try fleets enema as well today. As documented before, overall correction situation appears poor considering the extensive anoxic brain injury. Thank you Amandeep Chavis
[2015-06-24] MEDS: Potassium Chloride 20 mEq/15 ml LIQ UD NG SCH (09:46)
[2015-06-24] MEDS: POLYETHYLENE GLYCOL 3350 17 GM/Dose PACKET PO SCH (09:46)
--- NOTE | 2015-06-24 10:08 | CP.PCM.PN ---
Subjective - Subjective Subjective: CT Surgery Pt S&E. On vent. Pt is unresponsive to verbal and physical stimuli. He does not appear to be in any pain. Trach and PEG are in place and functioning appropriately. Review of Systems - Review of Systems Systems not reviewed;Unavailable: Intubated Objective - Vital Signs/Intake and Output Vital Signs (last 24 hours): Vital Signs - 24 hr 06/23/15 06/23/15 06/23/15 11:10 14:00 17:43 Temperature 96.8 F L Pulse Rate 58 L 60 Respiratory 20 22 Rate Blood Pressure 109/60 O2 Sat by Pulse 100 Oximetry 06/23/15 06/24/15 06/24/15 21:43 05:50 09:45 Temperature 98.1 F 99 F Pulse Rate 64 72 Respiratory 20 22 Rate Blood Pressure 116/72 106/66 106/66 O2 Sat by Pulse 100 100 Oximetry Intake and Output (last 12 hours): Intake & Output 06/23/15 06/24/15 06/24/15 18:59 06:59 18:59 Intake Total 720 580 Output Total 1025 1400 Balance -305 -820 Intake: Tube Feeding 720 580 Output: Urine 1025 1400 Urethral (Yoo) 1025 1400 Other: # Bowel Movements 0 - Medications Medications: Current Medications Amiodarone HCl (Cordarone) 200 mg PO DAILY [facility] Last Admin: 06/24/15 09:46 Dose: 200 mg Aspirin (Aspirin) 325 mg PO DAILY [facility] Last Admin: 06/24/15 09:45 Dose: 325 mg Clopidogrel Bisulfate (Plavix) 75 mg PO DAILY [facility] [place] Last Admin: 06/24/15 09:45 Dose: 75 mg Enalapril Maleate (Vasotec) 2.5 mg PO DAILY [facility] [place] Last Admin: 06/24/15 09:45 Dose: 2.5 mg Famotidine (Pepcid) 20 mg PO BID [facility] [place] Last Admin: 06/24/15 09:45 Dose: 20 mg Fosphenytoin Sodium 100 mg/ (Dextrose) 52 mls @ 100 mls/hr IV Q8H [facility] Last Admin: 06/24/15 03:36 Dose: 100 mls/hr Piperacillin Sod/Tazobactam Sod (Zosyn 3.375 Gm Iv Premix) 50 mls @ 100 mls/hr IVPB Q8H [facility] Last Admin: 06/24/15 08:25 Dose: 100 mls/hr Polyethylene Glycol (Miralax) 17 gm PO DAILY [facility] Last Admin: 06/24/15 09:46 Dose: 17 gm Potassium Chloride (Potassium Chloride Oral Soln) 40 meq NG DAILY [facility] Last Admin: 06/24/15 09:46 Dose: 40 meq - Labs Labs (last 24 hours): Laboratory Results - last 24 hr 06/24/15 06/24/15 08:18 08:20 WBC 12.3 H RBC 3.69 L Hgb 11.2 L Hct 34.2 L MCV 92.7 MCH 30.5 MCHC 32.9 L RDW 14.8 H Plt Count 449 H MPV 7.5 Neut % (Auto) 84.9 H Lymph % (Auto) 6.8 L [place] % (Auto) 6.3 Eos % (Auto) 1.7 Baso % (Auto) 0.3 Neut # 10.5 H Lymph # 0.8 L [place] # 0.8 Eos # 0.2 Baso # 0.0 Sodium 135 Potassium 4.0 Chloride 102 Carbon Dioxide 25 Anion Gap 12 BUN 15 Creatinine 0.7 L Est GFR ( Amer) > 60 Est GFR (Non-Af Amer) > 60 Random Glucose 129 H Calcium 8.0 L Phosphorus 4.2 Magnesium 2.3 Total Bilirubin 0.4 AST 128 H D ALT 176 H Alkaline Phosphatase 92 Total Protein 6.3 Albumin 2.8 L Globulin 3.6 Albumin/Globulin Ratio 0.8 L - Constitutional Appears: Non-toxic, No Acute Distress - Head Exam Head Exam: NORMOCEPHALIC - Neck Exam Additional comments: Trach in place - Respiratory Exam Respiratory Exam: NORMAL BREATHING PATTERN. absent: Respiratory Distress - Cardiovascular Exam Cardiovascular Exam: RRR, +S1, +S2 - GI/Abdominal Exam GI & Abdominal Exam: Soft. absent: Distended Assessment/Plan - Assessment and Plan (Free Text) Assessment: 64M S/P cardiac arrest/anoxic brain injury - Trach/PEG placed, POD#3 Plan: TRACH/PEG both stable, C/D/I, no sign of infection or leak Cont management as per medical team. Remove trach sutures on 06/30 D/W Dr Chan
[2015-06-24 11:21] LABS: BANDS 1 % (0-0); BASOPHIL 1 % (0-2); LYMPHOCYTE 4 % (20-40); MONOCYTE 5 % (0-10); NEUTROPHIL 89 % (50-75); TOTAL CELLS COUNTED 100
[2015-06-24 11:22] LABS: ANISOCYTOSIS SLIGHT; HYPOCHROMIC SLIGHT; OVALOCYTES SLIGHT; PLATELET ESTIMATE SLIGHTLY INCREASED (NORMAL); POIKILOCYTOSIS SLIGHT; POLYCHROMIC SLIGHT
[2015-06-24 11:23] LABS: BURR CELLS SLIGHT; TOXIC GRANULATION PRESENT
[2015-06-25] MEDS: Fosphenytoin 100 MG in Dextrose 5% In Water 50 ML IV SCH ×3 (03:59→19:31)
[2015-06-25 08:10] LABS: ALBUMIN 2.7 g/dL (3.5-5.0)
[2015-06-25 08:13] LABS: AST/SGOT 94 U/L (17-59); BLOOD UREA NITROGEN 20 mg/dL (9-20); GFR NON-AFRICAN AMERICAN > 60
[2015-06-25 08:14] LABS: ALT/SGPT 152 U/L (21-72); CALCIUM 7.9 mg/dL (8.4-10.2)
[2015-06-25 08:19] LABS: BASO # 0.1 K/uL (0.0-0.2); BASO % 0.4 % (0.0-2.0); EOS # 0.2 K/uL (0.0-0.7); EOS % 1.4 % (0.0-4.0); LYMPH % 8.4 % (20.0-40.0); MEAN CELL VOLUME 92.5 fL (80.0-94.0); MEAN CORPUSCULAR HEMOGLOBIN 30.6 pg (27.0-31.0); MEAN CORPUSCULAR HGB CONC 33.1 g/dL (33.0-37.0); MEAN PLATELET VOLUME 7.6 fL (7.2-11.7); MONO # 0.5 K/uL (0.0-0.8); MONO % 4.2 % (0.0-10.0); NEUT # 10.7 K/uL (1.8-7.0); NEUT % 85.6 % (50.0-75.0); PLATELET COUNT 489 K/uL (130-400); RED CELL DISTRIBUTION WIDTH 14.8 % (11.5-14.5); WHITE BLOOD COUNT 12.5 K/uL (4.8-10.8)
[2015-06-25 08:32] LABS: ALB/GLOB RATIO 0.8 (1.0-2.1)
[2015-06-25] MEDS: Piperacill/Tazo 3.375gm in Dex 50 ML IVPB SCH ×2 (08:46→16:26)
[2015-06-25 09:20] LABS: BANDS 2 % (0-0); EOSINOPHIL 2 % (0-4); LYMPHOCYTE 5 % (20-40); MONOCYTE 5 % (0-10); NEUTROPHIL 86 % (50-75); PLATELET ESTIMATE NORMAL (NORMAL); TOTAL CELLS COUNTED 100
[2015-06-25 09:21] LABS: ANISOCYTOSIS SLIGHT; HYPOCHROMIC SLIGHT; POIKILOCYTOSIS SLIGHT; TOXIC GRANULATION PRESENT
[2015-06-25] MEDS: POLYETHYLENE GLYCOL 3350 17 GM/Dose PACKET PO SCH (10:02)
[2015-06-25] MEDS: Potassium Chloride 20 mEq/15 ml LIQ UD NG SCH (10:02)
--- NOTE | 2015-06-25 10:13 | CP.PCM.PN ---
<Judith Baires H - Last Filed: 06/25/15 15:03> Subjective - Subjective Subjective: Patient seen and examined at bedside this AM. Patient unresponsive to verbal and painful stimuli after anoxic brain injury post [place]. Patient does not open eyes. S/P trach and PEG placement. Continuous mechanical ventilation. Patient has hiccup-like abdominal movements. Patient is in decorticate posture. Awaiting placement. WBC increasing. Review of Systems - Review of Systems Systems not reviewed;Unavailable: Altered Mental Status Objective - Vital Signs/Intake and Output Vital Signs (last 24 hours): Vital Signs - 24 hr 06/24/15 06/24/15 06/24/15 11:29 14:03 22:16 Temperature 98.1 F 97.4 F L Pulse Rate 59 L 88 61 Respiratory 20 20 Rate Blood Pressure 102/68 106/71 O2 Sat by Pulse 97 100 Oximetry 06/25/15 06/25/15 06:34 10:02 Temperature 97.8 F Pulse Rate 67 Respiratory 20 Rate Blood Pressure 102/68 102/62 O2 Sat by Pulse 99 Oximetry Intake and Output (last 12 hours): Intake & Output 06/24/15 06/25/15 06/25/15 18:59 06:59 18:59 Intake Total 720 830 Output Total 650 400 Balance 70 -400 830 Intake: Intake, IV Amount 250 Left Forearm 250 Tube Feeding 720 580 Output: Urine 650 400 Urethral (Yoo) 650 400 Other: # Bowel Movements 1 2 - Medications Medications: Current Medications Amiodarone HCl (Cordarone) 200 mg PO DAILY [facility] Last Admin: 06/25/15 10:01 Dose: 200 mg Aspirin (Aspirin) 325 mg PO DAILY [facility] Last Admin: 06/25/15 10:01 Dose: 325 mg Clopidogrel Bisulfate (Plavix) 75 mg PO DAILY [facility] Last Admin: 06/25/15 10:01 Dose: 75 mg Enalapril Maleate (Vasotec) 2.5 mg PO DAILY [facility] Last Admin: 06/25/15 10:02 Dose: 2.5 mg Famotidine (Pepcid) 20 mg PO BID [facility] Last Admin: 06/25/15 10:02 Dose: 20 mg Fosphenytoin Sodium 100 mg/ (Dextrose) 52 mls @ 100 mls/hr IV Q8H [facility] Last Admin: 06/25/15 03:59 Dose: 100 mls/hr Piperacillin Sod/Tazobactam Sod (Zosyn 3.375 Gm Iv Premix) 50 mls @ 100 mls/hr IVPB Q8H [facility] Last Admin: 06/25/15 08:46 Dose: 100 mls/hr Polyethylene Glycol (Miralax) 17 gm PO DAILY [facility] Last Admin: 06/25/15 10:02 Dose: 17 gm Potassium Chloride (Potassium Chloride Oral Soln) 40 meq NG DAILY [facility] Last Admin: 06/25/15 10:02 Dose: 40 meq - Labs Labs (last 24 hours): Laboratory Results - last 24 hr 06/24/15 06/25/15 08:20 07:23 WBC 12.5 H RBC 3.60 L Hgb 11.0 L Hct 33.3 L MCV 92.5 MCH 30.6 MCHC 33.1 RDW 14.8 H Plt Count 489 H MPV 7.6 Neut % (Auto) 85.6 H Lymph % (Auto) 8.4 L [place] % (Auto) 4.2 Eos % (Auto) 1.4 Baso % (Auto) 0.4 Neut # 10.7 H Lymph # 1.0 [place] # 0.5 Eos # 0.2 Baso # 0.1 Neutrophils % (Manual) 89 H 86 H Band Neutrophils % 1 H 2 H Lymphocytes % (Manual) 4 L 5 L Monocytes % (Manual) 5 5 Eosinophils % (Manual) 2 Basophils % (Manual) 1 Toxic Granulation Present Present Platelet Estimate Slightly increased H Normal Polychromasia Slight Hypochromasia (manual) Slight Slight Poikilocytosis (manual Slight Slight Anisocytosis (manual) Slight Slight Ovalocytes Slight Lily Cells Slight Sodium 135 Potassium 4.1 Chloride 106 Carbon Dioxide 24 Anion Gap 8 L BUN 20 Creatinine 0.8 Est GFR ( Amer) > 60 Est GFR (Non-Af Amer) > 60 Random Glucose 149 H Calcium 7.9 L Phosphorus 3.3 Magnesium 2.2 Total Bilirubin 0.3 AST 94 H D ALT 152 H Alkaline Phosphatase 88 Total Protein 6.4 Albumin 2.7 L Globulin 3.6 Albumin/Globulin Ratio 0.8 L - Constitutional Appears: No Acute Distress, Chronically Ill - Head Exam Head Exam: NORMAL INSPECTION Additional comments: healing cut above left eye - Eye Exam Eye Exam: Normal appearance - ENT Exam ENT Exam: Mucous Membranes Moist - Respiratory Exam Respiratory Exam: absent: Rales, Rhonchi, Respiratory Distress Additional comments: mechanical ventilation FiO2 [address] no erythema - Cardiovascular Exam Cardiovascular Exam: REGULAR RHYTHM, +S1, +S2 - GI/Abdominal Exam GI & Abdominal Exam: Normal Bowel Sounds, Soft. absent: Distended, Firm, Rigid Additional comments: peg in place, no erythema or drainage - Extremities Exam Extremities exam: pedal pulses present. absent: pedal edema - Neurological Exam Neurological exam: Altered Assessment/Plan (1) Leukocytosis Current Visit: Yes Status: Acute Comment: 06/25/15: WBC 12.5, N 86%, 2 Bands Afebrile since 06/22 (100.4 on 06/22) Monitor WBC Monitor temperature - pancultures if there is a fever (2) Respiratory failure Current Visit: Yes Status: Acute Comment: Patient on mechanical ventilation FiO2 40 Tell respiratory therapist about hiccup like abdominal movements 06/21 was S/P day 1 of trach and PEG with dr. Chan. (3) Anoxic encephalopathy Current Visit: Yes Status: Acute Comment: 06/25: No changes, decorticate posture; goal rate of tube feeding set to 60mls/hour S/p trach and peg placement 06/24: No acute changes. Gave Thorazine 25mg IM to control hiccups. S/P trach and PEG placement, POD#4. 06/23: No acute changes. S/P trach and PEG placement, POD#3. 06/22 Spoke with family about transporationt to [place], family requested initial reports from admission. Patient is given 25mg of IM Thorazine for hiccup like movements. 06/21: S/P Trach and PEG. POD #1 Waiting for placement Transfer out of ICU today Head CT (06/20) - Global ischemia. Diffuse loss of lester white matter differentiation. This is most likely the results of an anoxic event such as cardiac arrest. 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 No evidence of downward herniation or midline shift. Most likely due to cardiac arrest Family still wants full code. Intubated Unresponsive to painful stimuli Palliative care on case (4) CAD (coronary artery disease) Current Visit: Yes Status: Acute Comment: Cardiac Catheterization showed occluded RCA and LAD (5) STEMI (ST elevation myocardial infarction) Current Visit: Yes Status: Acute Comment: Cardiac cath on 06/13 with occluded RCA and left main Continue ASA 325mg PO daily Cont Plavix 75mg PO daily Cont atenolol 12.5mg pO daily Cont Vasotec 2.5mg PO daily (6) Laceration of head Current Visit: Yes Status: Acute Comment: s/p sutures, wound care monitor (7) Seizures Current Visit: Yes Status: Acute Comment: 06/22 Continue to monitor, c/w treatment Dr. Garcia on case-help appreciated likely secondary to anoxic injury Fosphenytoin 100mg IVP Q8 + 500mg IVP STAT Ativan 2mg stat dose Monitor (8) Prophylactic measure Current Visit: Yes Status: Acute Comment: Pepcid 20 mg IVP q12 SCD's Plavix Miralax <Viji,Donavan - Last Filed: 06/25/15 16:11> Objective - Vital Signs/Intake and Output Vital Signs (last 24 hours): Vital Signs - 24 hr 06/24/15 06/25/15 06/25/15 22:16 06:34 10:02 Temperature 97.4 F L 97.8 F Pulse Rate 61 67 Respiratory 20 20 Rate Blood Pressure 106/71 102/68 102/62 O2 Sat by Pulse 100 99 Oximetry 06/25/15 13:00 Temperature 97.6 F Pulse Rate 67 Respiratory 22 Rate Blood Pressure 107/73 O2 Sat by Pulse Oximetry Intake and Output (last 12 hours): Intake & Output 06/24/15 06/25/15 06/25/15 18:59 06:59 18:59 Intake Total 720 830 Output Total 650 400 Balance 70 -400 830 Intake: Intake, IV Amount 250 Left Forearm 250 Tube Feeding 720 580 Output: Urine 650 400 Urethral (Yoo) 650 400 Other: # Bowel Movements 1 2 - Medications Medications: Current Medications Amiodarone HCl (Cordarone) 200 mg PO DAILY [facility] Last Admin: 06/25/15 10:01 Dose: 200 mg Aspirin (Aspirin) 325 mg PO DAILY [facility] Last Admin: 06/25/15 10:01 Dose: 325 mg Clopidogrel Bisulfate (Plavix) 75 mg PO DAILY [facility] Last Admin: 06/25/15 10:01 Dose: 75 mg Enalapril Maleate (Vasotec) 2.5 mg PO DAILY [facility] Last Admin: 06/25/15 10:02 Dose: 2.5 mg Famotidine (Pepcid) 20 mg PO BID [facility] Last Admin: 06/25/15 10:02 Dose: 20 mg Fosphenytoin Sodium 100 mg/ (Dextrose) 52 mls @ 100 mls/hr IV Q8H [facility] Last Admin: 06/25/15 12:34 Dose: 100 mls/hr Piperacillin Sod/Tazobactam Sod (Zosyn 3.375 Gm Iv Premix) 50 mls @ 100 mls/hr IVPB Q8H [facility] Last Admin: 06/25/15 08:46 Dose: 100 mls/hr Polyethylene Glycol (Miralax) 17 gm PO DAILY [facility] Last Admin: 06/25/15 10:02 Dose: 17 gm Potassium Chloride (Potassium Chloride Oral Soln) 40 meq NG DAILY [facility] Last Admin: 06/25/15 10:02 Dose: 40 meq - Labs Labs (last 24 hours): Laboratory Results - last 24 hr 06/25/15 07:23 WBC 12.5 H RBC 3.60 L Hgb 11.0 L Hct 33.3 L MCV 92.5 MCH 30.6 MCHC 33.1 RDW 14.8 H Plt Count 489 H MPV 7.6 Neut % (Auto) 85.6 H Lymph % (Auto) 8.4 L [place] % (Auto) 4.2 Eos % (Auto) 1.4 Baso % (Auto) 0.4 Neut # 10.7 H Lymph # 1.0 [place] # 0.5 Eos # 0.2 Baso # 0.1 Neutrophils % (Manual) 86 H Band Neutrophils % 2 H Lymphocytes % (Manual) 5 L Monocytes % (Manual) 5 Eosinophils % (Manual) 2 Toxic Granulation Present Platelet Estimate Normal Hypochromasia (manual) Slight Poikilocytosis (manual Slight Anisocytosis (manual) Slight Sodium 135 Potassium 4.1 Chloride 106 Carbon Dioxide 24 Anion Gap 8 L BUN 20 Creatinine 0.8 Est GFR ( Amer) > 60 Est GFR (Non-Af Amer) > 60 Random Glucose 149 H Calcium 7.9 L Phosphorus 3.3 Magnesium 2.2 Total Bilirubin 0.3 AST 94 H D ALT 152 H Alkaline Phosphatase 88 Total Protein 6.4 Albumin 2.7 L Globulin 3.6 Albumin/Globulin Ratio 0.8 L Attending/Attestation - Attestation I have personally seen and examined this patient.: Yes I have fully participated in the care of the patient.: Yes I have reviewed all pertinent clinical information: Yes Notes (Text): 06/25/15 16:11 patient has decerebrate posture
[2015-06-26] MEDS: Piperacill/Tazo 3.375gm in Dex 50 ML IVPB SCH ×3 (00:25→18:03)
[2015-06-26] MEDS: Fosphenytoin 100 MG in Dextrose 5% In Water 50 ML IV SCH ×3 (04:00→20:03)
[2015-06-26 07:51] LABS: BASO % 0.3 % (0.0-2.0); EOS # 0.2 K/uL (0.0-0.7); EOS % 1.2 % (0.0-4.0); HEMOGLOBIN 11.5 g/dL (12.0-18.0); LYMPH # 0.9 K/uL (1.0-4.3); LYMPH % 6.5 % (20.0-40.0); MEAN CORPUSCULAR HGB CONC 33.6 g/dL (33.0-37.0); MEAN PLATELET VOLUME 7.3 fL (7.2-11.7); MONO # 0.6 K/uL (0.0-0.8); MONO % 4.5 % (0.0-10.0); NEUT # 12.3 K/uL (1.8-7.0); NEUT % 87.5 % (50.0-75.0); PLATELET COUNT 520 K/uL (130-400); RBC 3.72 Mil/uL (4.40-5.90); RED CELL DISTRIBUTION WIDTH 14.3 % (11.5-14.5); WHITE BLOOD COUNT 14.1 K/uL (4.8-10.8)
[2015-06-26 08:12] LABS: ALBUMIN 3.1 g/dL (3.5-5.0)
[2015-06-26 08:14] LABS: GFR NON-AFRICAN AMERICAN > 60
[2015-06-26 08:15] LABS: ALB/GLOB RATIO 0.8 (1.0-2.1); ALT/SGPT 151 U/L (21-72); AST/SGOT 103 U/L (17-59); BLOOD UREA NITROGEN 20 mg/dL (9-20); CALCIUM 8.1 mg/dL (8.4-10.2)
[2015-06-26 08:32] LABS: EOSINOPHIL 1 % (0-4); LYMPHOCYTE 6 % (20-40); NEUTROPHIL 90 % (50-75); TOTAL CELLS COUNTED 100
[2015-06-26 08:33] LABS: ANISOCYTOSIS SLIGHT; HYPOCHROMIC SLIGHT; MONOCYTE 3 % (0-10); PLATELET ESTIMATE INCREASED (NORMAL); POIKILOCYTOSIS SLIGHT
[2015-06-26 08:34] LABS: TARGET CELLS SLIGHT; TOXIC GRANULATION PRESENT
--- NOTE | 2015-06-26 10:33 | CP.PCM.PN ---
<Judith Baires H - Last Filed: 06/26/15 13:42> Subjective - Subjective Subjective: Patient seen and examined at bedside this AM. Patient unresponsive to verbal and painful stimuli after anoxic brain injury post [place]. Patient does not open eyes. S/P trach and PEG placement. Continuous mechanical ventilation. Patient no longer has hiccup like abdominal movements. Patient is in decerebrate posture. Awaiting placement. Patient's relative was in room. Only speaks lao. Dr. Ina Ying spoke to another relative on the phone to translate to family member in room. WBC increasing. Review of Systems - Review of Systems Systems not reviewed;Unavailable: Altered Mental Status Objective - Vital Signs/Intake and Output Vital Signs (last 24 hours): Vital Signs - 24 hr 06/25/15 06/25/15 06/25/15 13:00 20:40 21:23 Temperature 97.6 F 98.2 F Pulse Rate 67 66 67 Respiratory 22 28 H Rate Blood Pressure 107/73 113/72 O2 Sat by Pulse 100 Oximetry 06/26/15 05:46 Temperature 99 F Pulse Rate 77 Respiratory 20 Rate Blood Pressure 101/68 O2 Sat by Pulse 99 Oximetry Intake and Output (last 12 hours): Intake & Output 06/25/15 06/26/15 06/26/15 18:59 06:59 18:59 Intake Total 830 1250 Output Total 1200 1075 Balance -370 175 Intake: Intake, IV Amount 250 150 Left Forearm 250 150 Oral 500 Tube Feeding 580 600 Output: Urine 1200 1075 Urethral (Yoo) 1200 1075 Other: # Bowel Movements 2 - Medications Medications: Current Medications Amiodarone HCl (Cordarone) 200 mg PO DAILY [facility] Last Admin: 06/25/15 10:01 Dose: 200 mg Aspirin (Aspirin) 325 mg PO DAILY [facility] Last Admin: 06/25/15 10:01 Dose: 325 mg Clopidogrel Bisulfate (Plavix) 75 mg PO DAILY [facility] Last Admin: 06/25/15 10:01 Dose: 75 mg Enalapril Maleate (Vasotec) 2.5 mg PO DAILY [facility] Last Admin: 06/25/15 10:02 Dose: 2.5 mg Famotidine (Pepcid) 20 mg PO BID [facility] Last Admin: 06/25/15 17:53 Dose: 20 mg Fosphenytoin Sodium 100 mg/ (Dextrose) 52 mls @ 100 mls/hr IV Q8H [facility] Last Admin: 06/26/15 04:00 Dose: 100 mls/hr Piperacillin Sod/Tazobactam Sod (Zosyn 3.375 Gm Iv Premix) 50 mls @ 100 mls/hr IVPB Q8H [facility] Last Admin: 06/26/15 00:25 Dose: 100 mls/hr Polyethylene Glycol (Miralax) 17 gm PO DAILY [facility] Last Admin: 06/25/15 10:02 Dose: 17 gm Potassium Chloride (Potassium Chloride Oral Soln) 40 meq NG DAILY [facility] Last Admin: 06/25/15 10:02 Dose: 40 meq - Labs Labs (last 24 hours): Laboratory Results - last 24 hr 06/26/15 07:28 WBC 14.1 H RBC 3.72 L Hgb 11.5 L Hct 34.2 L MCV 92.0 MCH 31.0 MCHC 33.6 RDW 14.3 Plt Count 520 H MPV 7.3 Neut % (Auto) 87.5 H Lymph % (Auto) 6.5 L [place] % (Auto) 4.5 Eos % (Auto) 1.2 Baso % (Auto) 0.3 Neut # 12.3 H Lymph # 0.9 L [place] # 0.6 Eos # 0.2 Baso # 0.0 Neutrophils % (Manual) 90 H Lymphocytes % (Manual) 6 L Monocytes % (Manual) 3 Eosinophils % (Manual) 1 Toxic Granulation Present Platelet Estimate Increased H Hypochromasia (manual) Slight Poikilocytosis (manual Slight Anisocytosis (manual) Slight Target Cells Slight Sodium 134 Potassium 4.3 Chloride 105 Carbon Dioxide 21 L Anion Gap 12 BUN 20 Creatinine 0.7 L Est GFR ( Amer) > 60 Est GFR (Non-Af Amer) > 60 Random Glucose 147 H Calcium 8.1 L Phosphorus 4.0 Magnesium 2.3 Total Bilirubin 0.5 AST 103 H ALT 151 H Alkaline Phosphatase 109 Total Protein 6.8 Albumin 3.1 L Globulin 3.8 Albumin/Globulin Ratio 0.8 L - Constitutional Appears: Chronically Ill - Head Exam Head Exam: NORMAL INSPECTION Additional comments: wound healing - Eye Exam Pupil Exam: absent: Unequal - ENT Exam ENT Exam: Mucous Membranes Moist - Respiratory Exam Respiratory Exam: Clear to PA & Lateral, NORMAL BREATHING PATTERN Additional comments: on trach collar No erythema around collar - Cardiovascular Exam Cardiovascular Exam: REGULAR RHYTHM, +S1, +S2 - GI/Abdominal Exam GI & Abdominal Exam: Normal Bowel Sounds, Soft. absent: Distended, Firm Additional comments: peg tube - no erythema, dried blood on skin around peg - Extremities Exam Extremities exam: pedal pulses present. absent: pedal edema - Neurological Exam Neurological exam: Altered Assessment/Plan (1) Leukocytosis Current Visit: Yes Status: Acute Comment: 06/26: WBC: 14.1 N 87.5% No bands 06/25/15: WBC 12.5, N 86%, 2 Bands Afebrile since 06/22 (100.4 on 06/22) Monitor WBC Monitor temperature - pancultures if there is a fever (2) Respiratory failure Current Visit: Yes Status: Acute Comment: Patient on mechanical ventilation FiO2 40 06/26 pulmonology consulted - Dr. Salgado - await recommendations 06/21 was S/P day 1 of trach and PEG with dr. Chan. (3) Anoxic encephalopathy Current Visit: Yes Status: Acute Comment: 06/26: No changes, decerebrate posture, consulted Neuro - Dr. Siddiqi - await recommendations 06/25: No changes, decorticate posture; goal rate of tube feeding set to 60mls/ hour S/p trach and peg placement 06/24: No acute changes. Gave Thorazine 25mg IM to control hiccups. S/P trach and PEG placement, POD#4. 06/23: No acute changes. S/P trach and PEG placement, POD#3. 06/22 Spoke with family about transporationt to [place], family requested initial reports from admission. Patient is given 25mg of IM Thorazine for hiccup like movements. 06/21: S/P Trach and PEG. POD #1 Waiting for placement Transfer out of ICU today Head CT (06/20) - Global ischemia. Diffuse loss of lester white matter differentiation. This is most likely the results of an anoxic event such as cardiac arrest. 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 No evidence of downward herniation or midline shift. Most likely due to cardiac arrest Family still wants full code. Intubated Unresponsive to painful stimuli Palliative care on case (4) CAD (coronary artery disease) Current Visit: Yes Status: Acute Comment: Cardiac Catheterization showed occluded RCA and LAD (5) STEMI (ST elevation myocardial infarction) Current Visit: Yes Status: Acute Comment: Cardiac cath on 06/13 with occluded RCA and left main Continue ASA 325mg PO daily Cont Plavix 75mg PO daily Cont atenolol 12.5mg pO daily Cont Vasotec 2.5mg PO daily (6) Laceration of head Current Visit: Yes Status: Acute Comment: s/p sutures, wound care monitor (7) Seizures Current Visit: Yes Status: Acute Comment: 06/22 Continue to monitor, c/w treatment Dr. Garcia on case-help appreciated likely secondary to anoxic injury Fosphenytoin 100mg IVP Q8 + 500mg IVP STAT Ativan 2mg stat dose Monitor (8) Prophylactic measure Current Visit: Yes Status: Acute Comment: Pepcid 20 mg IVP q12 SCD's Plavix Miralax <Don Ying A - Last Filed: 06/27/15 12:57> Objective - Vital Signs/Intake and Output Vital Signs (last 24 hours): Vital Signs - 24 hr 06/26/15 06/26/15 06/26/15 14:00 19:00 21:49 Temperature 97.9 F 98.6 F Pulse Rate 68 72 69 Respiratory 20 24 Rate Blood Pressure 110/70 112/72 O2 Sat by Pulse 100 100 Oximetry 06/27/15 06/27/15 05:00 10:14 Temperature 99.1 F Pulse Rate 76 Respiratory 20 Rate Blood Pressure 125/75 125/75 O2 Sat by Pulse 100 Oximetry Intake and Output (last 12 hours): Intake & Output 06/26/15 06/27/15 06/27/15 18:59 06:59 18:59 Intake Total 1580 Output Total 200 875 Balance -200 705 Intake: Intake, IV Amount 650 Left Forearm 400 L FA #18 250 Tube Feeding 930 Output: Urine 200 875 Urethral (Yoo) 200 875 Other: # Bowel Movements 0 - Medications Medications: Current Medications Amiodarone HCl (Cordarone) 200 mg PO DAILY [facility] Last Admin: 06/27/15 10:15 Dose: 200 mg Aspirin (Aspirin) 325 mg PO DAILY [facility] Last Admin: 06/27/15 10:15 Dose: 325 mg Clopidogrel Bisulfate (Plavix) 75 mg PO DAILY [facility] Last Admin: 06/27/15 10:15 Dose: 75 mg Enalapril Maleate (Vasotec) 2.5 mg PO DAILY [facility] Last Admin: 06/27/15 10:14 Dose: 2.5 mg Famotidine (Pepcid) 20 mg PO BID [facility] Last Admin: 06/27/15 10:15 Dose: 20 mg Fosphenytoin Sodium 100 mg/ (Dextrose) 52 mls @ 100 mls/hr IV Q8H [facility] Last Admin: 06/27/15 04:00 Dose: 100 mls/hr Piperacillin Sod/Tazobactam Sod (Zosyn 3.375 Gm Iv Premix) 50 mls @ 100 mls/hr IVPB Q8H [facility] Last Admin: 06/27/15 10:16 Dose: 100 mls/hr Polyethylene Glycol (Miralax) 17 gm PO DAILY [facility] Last Admin: 06/27/15 10:15 Dose: 17 gm Potassium Chloride (Potassium Chloride Oral Soln) 40 meq NG DAILY [facility] Last Admin: 06/27/15 10:15 Dose: 40 meq - Labs Labs (last 24 hours): Laboratory Results - last 24 hr 06/27/15 07:21 WBC 11.9 H RBC 3.59 L Hgb 11.1 L Hct 33.2 L MCV 92.3 MCH 31.0 MCHC 33.6 RDW 14.6 H Plt Count 506 H MPV 7.2 Neut % (Auto) 84.3 H Lymph % (Auto) 7.7 L [place] % (Auto) 6.7 Eos % (Auto) 0.9 Baso % (Auto) 0.4 Neut # 10.0 H Lymph # 0.9 L [place] # 0.8 Eos # 0.1 Baso # 0.1 Neutrophils % (Manual) 88 H Band Neutrophils % 2 H Lymphocytes % (Manual) 4 L Monocytes % (Manual) 5 Basophils % (Manual) 1 Toxic Granulation Present Platelet Estimate Normal Hypochromasia (manual) Slight Sodium 133 Potassium 4.2 Chloride 101 Carbon Dioxide 26 Anion Gap 11 BUN 21 H Creatinine 0.7 L Est GFR ( Amer) > 60 Est GFR (Non-Af Amer) > 60 Random Glucose 109 Calcium 7.9 L Phosphorus 3.7 Magnesium 2.3 Total Bilirubin 0.4 AST 109 H ALT 151 H Alkaline Phosphatase 120 Total Protein 6.8 Albumin 3.1 L Globulin 3.7 Albumin/Globulin Ratio 0.8 L Attending/Attestation - Attestation I have personally seen and examined this patient.: Yes I have fully participated in the care of the patient.: Yes I have reviewed all pertinent clinical information: Yes
[2015-06-26] MEDS: Potassium Chloride 20 mEq/15 ml LIQ UD NG SCH (10:57)
[2015-06-26] MEDS: POLYETHYLENE GLYCOL 3350 17 GM/Dose PACKET PO SCH (10:57)
--- NOTE | 2015-06-26 14:19 | CP.PCM.CON ---
History of Present Illness - History of Present Illness History of Present Illness: CC: Respiratory failure secondary to global cerebral anoxia and cardiac arrest HPI: As per admission note: "Patient is a 64 yo M with unknown pmhx who was found unresponsive in driveway (on 06/13/15) by EMS after fall that was witnessed by family. In the field, CPR was given, patient was in asystole and was shocked 3 times, given 1 dose of Epinephrine and started on an Amiodarone drip. In the ED, the patient was found to be in V Fib and was shocked once. He then converted to sinus tachy and given 5000 U of heparin and Versed. He was intubated and an NGT was placed. Afterwards, he was given 600 mg of Plavis and 325 mg of ASA. He was found to have a large gash on the R side of his head so he was taken for a Head CT, which showed on acute intracranial hemorrhage and then to the laboratory geneticist." Pt previously in ICU and now on medical floors. Pulm consulted for respiratory failure. Pt seen and examined this PM. Pt is on mechanical ventilation and is unresponsive to name or touch. Unable to obtain ROS. From Patient's History obtained by Sort Line from family: PMHx: unknown type of "heart trouble" that was diagnosed in [place] 15 years ago. no rx or therapy given at that time. He has not seen a physician in 15 years PSHx: Denied Soc: denied EtOH and tobacco Allergy: NKDA meds: none Review of Systems - Review of Systems Systems not reviewed;Unavailable: Other (Completely unresponsive secondary to global cerebral anoxic insult) Past Patient History - Tetanus Immunizations Tetanus Immunization: Unknown - Past Medical History & Family History Past Medical History?: Yes - Past Social History Smoking Status: Never Smoked Alcohol: None Drugs: Denies - CARDIAC Hx Cardiac Disorders: Yes (unknown condition diagnosed in [place] 15 years ago) - MUSCULOSKELETAL/RHEUMATOLOGICAL Hx Falls: Yes - PSYCHIATRIC Hx Substance Use: No - ANESTHESIA Hx Anesthesia: No Hx Anesthesia Reactions: No Hx Malignant Hyperthermia: No Has any member of the family had a problem w/ anesthesia?: No Meds Home Medications: Home Medication List Medication Instructions Recorded Confirmed Type No Known Home Med [No Known Home 06/13/15 06/13/15 History Med] Allergies/Adverse Reactions: Allergies Allergy/AdvReac Type Severity Reaction Status Date / Time No Known Allergies Allergy Unverified 06/13/15 20:57 - Medications Medications: Current Medications Amiodarone HCl (Cordarone) 200 mg PO DAILY [facility] Last Admin: 06/26/15 11:00 Dose: Not Given Aspirin (Aspirin) 325 mg PO DAILY [facility] Last Admin: 06/26/15 10:57 Dose: 325 mg Clopidogrel Bisulfate (Plavix) 75 mg PO DAILY [facility] Last Admin: 06/26/15 10:57 Dose: 75 mg Enalapril Maleate (Vasotec) 2.5 mg PO DAILY [facility] Last Admin: 06/26/15 11:00 Dose: Not Given Famotidine (Pepcid) 20 mg PO BID [facility] Last Admin: 06/26/15 10:57 Dose: 20 mg Fosphenytoin Sodium 100 mg/ (Dextrose) 52 mls @ 100 mls/hr IV Q8H [facility] Last Admin: 06/26/15 12:48 Dose: 100 mls/hr Piperacillin Sod/Tazobactam Sod (Zosyn 3.375 Gm Iv Premix) 50 mls @ 100 mls/hr IVPB Q8H [facility] Last Admin: 06/26/15 10:54 Dose: 100 mls/hr Polyethylene Glycol (Miralax) 17 gm PO DAILY [facility] Last Admin: 06/26/15 10:57 Dose: 17 gm Potassium Chloride (Potassium Chloride Oral Soln) 40 meq NG DAILY [facility] Last Admin: 06/26/15 10:57 Dose: 40 meq Physical Exam - Constitutional Appears: Chronically Ill Additional comments: unresponsive - Head Exam Head Exam: NORMAL INSPECTION - Eye Exam Additional comments: pupils unreactive to light - Neck Exam Additional comments: trach in place - Respiratory Exam Respiratory Exam: Clear to PA & Lateral. absent: Rales, Rhonchi, Wheezes Additional comments: mechanically ventilated - Cardiovascular Exam Cardiovascular Exam: RRR, +S1, +S2. absent: Clicks, Diastolic murmur, Gallop, Rubs, Systolic Murmur - Neurological Exam Neurological exam: Altered (unresponsive to name) Results - Vital Signs Recent Vital Signs: Last Vital Signs Temp 99 F 06/26/15 05:46 Pulse 77 06/26/15 07:55 Resp 20 06/26/15 05:46 BP 106/61 06/26/15 11:00 Pulse Ox 99 06/26/15 05:46 - Labs Result Diagrams: 06/26/15 07:28 06/26/15 07:28 Labs: Laboratory Results - last 24 hr 06/26/15 07:28 WBC 14.1 H RBC 3.72 L Hgb 11.5 L Hct 34.2 L MCV 92.0 MCH 31.0 MCHC 33.6 RDW 14.3 Plt Count 520 H MPV 7.3 Neut % (Auto) 87.5 H Lymph % (Auto) 6.5 L [place] % (Auto) 4.5 Eos % (Auto) 1.2 Baso % (Auto) 0.3 Neut # 12.3 H Lymph # 0.9 L [place] # 0.6 Eos # 0.2 Baso # 0.0 Neutrophils % (Manual) 90 H Lymphocytes % (Manual) 6 L Monocytes % (Manual) 3 Eosinophils % (Manual) 1 Toxic Granulation Present Platelet Estimate Increased H Hypochromasia (manual) Slight Poikilocytosis (manual Slight Anisocytosis (manual) Slight Target Cells Slight Sodium 134 Potassium 4.3 Chloride 105 Carbon Dioxide 21 L Anion Gap 12 BUN 20 Creatinine 0.7 L Est GFR ( Amer) > 60 Est GFR (Non-Af Amer) > 60 Random Glucose 147 H Calcium 8.1 L Phosphorus 4.0 Magnesium 2.3 Total Bilirubin 0.5 AST 103 H ALT 151 H Alkaline Phosphatase 109 Total Protein 6.8 Albumin 3.1 L Globulin 3.8 Albumin/Globulin Ratio 0.8 L Assessment/Plan (1) Respiratory failure Current Visit: Yes Status: Acute Comment: Patient on mechanical ventilation FiO2 40 06/26: Continue mechanical ventilation. Consider attempting to wean. 06/21 was S/P day 1 of trach and PEG with dr. Chan. (2) Anoxic encephalopathy Current Visit: Yes Status: Acute Comment: 06/26: No changes, decerebrate posture, consulted Neuro - Dr. Siddiqi - await recommendations 06/25: No changes, decorticate posture; goal rate of tube feeding set to 60mls/ hour S/p trach and peg placement 06/24: No acute changes. Gave Thorazine 25mg IM to control hiccups. S/P trach and PEG placement, POD#4. 06/23: No acute changes. S/P trach and PEG placement, POD#3. 06/22 Spoke with family about transporationt to [place], family requested initial reports from admission. Patient is given 25mg of IM Thorazine for hiccup like movements. 06/21: S/P Trach and PEG. POD #1 Waiting for placement Transfer out of ICU today Head CT (06/20) - Global ischemia. Diffuse loss of lester white matter differentiation. This is most likely the results of an anoxic event such as cardiac arrest. 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 No evidence of downward herniation or midline shift. Most likely due to cardiac arrest Family still wants full code. Intubated Unresponsive to painful stimuli Palliative care on case (3) Bronchopneumonia Current Visit: Yes Status: Acute Comment: Cont Zosyn and vanco Patient febrile monitor (4) Cardiac arrest Current Visit: Yes Status: Acute Comment: S/P V-Tach arrest Continue Amiodarone 200mg daily Cont ASA 325 mg po daily Cont Plavix 75 mg po daily Cont Enalapril 2.5 mg po daily Cont atenolol 12.5mg daily Monitor (5) STEMI (ST elevation myocardial infarction) Current Visit: Yes Status: Acute Comment: Cardiac cath on 06/13 with occluded RCA and left main Continue ASA 325mg PO daily Cont Plavix 75mg PO daily Cont atenolol 12.5mg pO daily Cont Vasotec 2.5mg PO daily
[2015-06-27] MEDS: Piperacill/Tazo 3.375gm in Dex 50 ML IVPB SCH ×3 (01:07→18:01)
[2015-06-27] MEDS: Fosphenytoin 100 MG in Dextrose 5% In Water 50 ML IV SCH ×3 (04:00→20:07)
[2015-06-27 07:51] LABS: BASO # 0.1 K/uL (0.0-0.2); BASO % 0.4 % (0.0-2.0); EOS # 0.1 K/uL (0.0-0.7); EOS % 0.9 % (0.0-4.0); HEMOGLOBIN 11.1 g/dL (12.0-18.0); LYMPH # 0.9 K/uL (1.0-4.3); LYMPH % 7.7 % (20.0-40.0); MEAN CELL VOLUME 92.3 fL (80.0-94.0); MEAN CORPUSCULAR HGB CONC 33.6 g/dL (33.0-37.0); MEAN PLATELET VOLUME 7.2 fL (7.2-11.7); MONO # 0.8 K/uL (0.0-0.8); MONO % 6.7 % (0.0-10.0); NEUT % 84.3 % (50.0-75.0); PLATELET COUNT 506 K/uL (130-400); RBC 3.59 Mil/uL (4.40-5.90); RED CELL DISTRIBUTION WIDTH 14.6 % (11.5-14.5); WHITE BLOOD COUNT 11.9 K/uL (4.8-10.8)
[2015-06-27 08:08] LABS: ALBUMIN 3.1 g/dL (3.5-5.0)
[2015-06-27 08:10] LABS: GFR NON-AFRICAN AMERICAN > 60
[2015-06-27 08:11] LABS: ALB/GLOB RATIO 0.8 (1.0-2.1); ALT/SGPT 151 U/L (21-72); AST/SGOT 109 U/L (17-59); BLOOD UREA NITROGEN 21 mg/dL (9-20); CALCIUM 7.9 mg/dL (8.4-10.2)
[2015-06-27 08:36] LABS: BANDS 2 % (0-0); BASOPHIL 1 % (0-2); LYMPHOCYTE 4 % (20-40); MONOCYTE 5 % (0-10); NEUTROPHIL 88 % (50-75); PLATELET ESTIMATE NORMAL (NORMAL); TOTAL CELLS COUNTED 100
[2015-06-27 08:38] LABS: HYPOCHROMIC SLIGHT; TOXIC GRANULATION PRESENT
[2015-06-27] MEDS: Potassium Chloride 20 mEq/15 ml LIQ UD NG SCH (10:15)
[2015-06-27] MEDS: POLYETHYLENE GLYCOL 3350 17 GM/Dose PACKET PO SCH (10:15)
--- NOTE | 2015-06-27 13:35 | CP.PCM.PN ---
Subjective - Subjective Subjective: Pt seen and examined this AM. Pt unresponsive to voice or painful stimulus. ROS not obtainable. Pt failed CPAP trial at bedside. Continue mechanical ventilation. Review of Systems - Review of Systems Review of Systems: Global anoxic brain injury. Pt unresponsive. Objective - Vital Signs/Intake and Output Vital Signs (last 24 hours): Vital Signs - 24 hr 06/26/15 06/26/15 06/26/15 14:00 19:00 21:49 Temperature 97.9 F 98.6 F Pulse Rate 68 72 69 Respiratory 20 24 Rate Blood Pressure 110/70 112/72 O2 Sat by Pulse 100 100 Oximetry 06/27/15 06/27/15 05:00 10:14 Temperature 99.1 F Pulse Rate 76 Respiratory 20 Rate Blood Pressure 125/75 125/75 O2 Sat by Pulse 100 Oximetry Intake and Output (last 12 hours): Intake & Output 06/26/15 06/27/15 06/27/15 18:59 06:59 18:59 Intake Total 1580 Output Total 200 875 Balance -200 705 Intake: Intake, IV Amount 650 Left Forearm 400 L FA #18 250 Tube Feeding 930 Output: Urine 200 875 Urethral (Yoo) 200 875 Other: # Bowel Movements 0 - Medications Medications: Current Medications Amiodarone HCl (Cordarone) 200 mg PO DAILY [facility] Last Admin: 06/27/15 10:15 Dose: 200 mg Aspirin (Aspirin) 325 mg PO DAILY [facility] Last Admin: 06/27/15 10:15 Dose: 325 mg Clopidogrel Bisulfate (Plavix) 75 mg PO DAILY [facility] Last Admin: 06/27/15 10:15 Dose: 75 mg Enalapril Maleate (Vasotec) 2.5 mg PO DAILY [facility] Last Admin: 06/27/15 10:14 Dose: 2.5 mg Famotidine (Pepcid) 20 mg PO BID [facility] Last Admin: 06/27/15 10:15 Dose: 20 mg Fosphenytoin Sodium 100 mg/ (Dextrose) 52 mls @ 100 mls/hr IV Q8H [facility] Last Admin: 06/27/15 04:00 Dose: 100 mls/hr Piperacillin Sod/Tazobactam Sod (Zosyn 3.375 Gm Iv Premix) 50 mls @ 100 mls/hr IVPB Q8H [facility] Last Admin: 06/27/15 10:16 Dose: 100 mls/hr Polyethylene Glycol (Miralax) 17 gm PO DAILY [facility] Last Admin: 06/27/15 10:15 Dose: 17 gm Potassium Chloride (Potassium Chloride Oral Soln) 40 meq NG DAILY [facility] Last Admin: 06/27/15 10:15 Dose: 40 meq - Labs Labs (last 24 hours): Laboratory Results - last 24 hr 06/27/15 07:21 WBC 11.9 H RBC 3.59 L Hgb 11.1 L Hct 33.2 L MCV 92.3 MCH 31.0 MCHC 33.6 RDW 14.6 H Plt Count 506 H MPV 7.2 Neut % (Auto) 84.3 H Lymph % (Auto) 7.7 L [place] % (Auto) 6.7 Eos % (Auto) 0.9 Baso % (Auto) 0.4 Neut # 10.0 H Lymph # 0.9 L [place] # 0.8 Eos # 0.1 Baso # 0.1 Neutrophils % (Manual) 88 H Band Neutrophils % 2 H Lymphocytes % (Manual) 4 L Monocytes % (Manual) 5 Basophils % (Manual) 1 Toxic Granulation Present Platelet Estimate Normal Hypochromasia (manual) Slight Sodium 133 Potassium 4.2 Chloride 101 Carbon Dioxide 26 Anion Gap 11 BUN 21 H Creatinine 0.7 L Est GFR ( Amer) > 60 Est GFR (Non-Af Amer) > 60 Random Glucose 109 Calcium 7.9 L Phosphorus 3.7 Magnesium 2.3 Total Bilirubin 0.4 AST 109 H ALT 151 H Alkaline Phosphatase 120 Total Protein 6.8 Albumin 3.1 L Globulin 3.7 Albumin/Globulin Ratio 0.8 L - Constitutional Appears: Other (unresponsive) - Head Exam Head Exam: NORMAL INSPECTION - Respiratory Exam Respiratory Exam: Clear to PA & Lateral. absent: Rales, Rhonchi, Wheezes Additional comments: Pt failed CPAP trial at bedside. Pt remains on mechanical ventilation. - Cardiovascular Exam Cardiovascular Exam: REGULAR RHYTHM, RRR, +S1, +S2. absent: Clicks, Diastolic murmur, Gallop, Rubs, Systolic Murmur - Neurological Exam Neurological exam: Altered (unresponsive to voice or painful stimulus) Assessment/Plan (1) Respiratory failure Current Visit: Yes Status: Acute Comment: 06/27 CPAP trial was attempted bedside. Pt failed CPAP trial. Pt remains on PRVC mechanical ventilation. 06/21 was S/P day 1 of trach and PEG with dr. Chan. (2) Anoxic encephalopathy Current Visit: Yes Status: Acute Comment: 06/26: No changes, decerebrate posture, consulted Neuro - Dr. Siddiqi - await recommendations 06/25: No changes, decorticate posture; goal rate of tube feeding set to 60mls/ hour S/p trach and peg placement 06/24: No acute changes. Gave Thorazine 25mg IM to control hiccups. S/P trach and PEG placement, POD#4. 06/23: No acute changes. S/P trach and PEG placement, POD#3. 06/22 Spoke with family about transporationt to [place], family requested initial reports from admission. Patient is given 25mg of IM Thorazine for hiccup like movements. 06/21: S/P Trach and PEG. POD #1 Waiting for placement Transfer out of ICU today Head CT (06/20) - Global ischemia. Diffuse loss of lester white matter differentiation. This is most likely the results of an anoxic event such as cardiac arrest. 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 No evidence of downward herniation or midline shift. Most likely due to cardiac arrest Family still wants full code. Intubated Unresponsive to painful stimuli Palliative care on case (3) Bronchopneumonia Current Visit: Yes Status: Acute Comment: Cont Zosyn and vanco Patient febrile monitor (4) Cardiac arrest Current Visit: Yes Status: Acute Comment: S/P V-Tach arrest Continue Amiodarone 200mg daily Cont ASA 325 mg po daily Cont Plavix 75 mg po daily Cont Enalapril 2.5 mg po daily Cont atenolol 12.5mg daily Monitor (5) STEMI (ST elevation myocardial infarction) Current Visit: Yes Status: Acute Comment: Cardiac cath on 06/13 with occluded RCA and left main Continue ASA 325mg PO daily Cont Plavix 75mg PO daily Cont atenolol 12.5mg pO daily Cont Vasotec 2.5mg PO daily
--- NOTE | 2015-06-27 14:01 | CP.PCM.PN ---
<Judith Baires H - Last Filed: 06/27/15 13:58> Subjective - Subjective Subjective: Patient seen and examined at bedside this AM. Patient unresponsive to verbal and painful stimuli after anoxic brain injury post MD. Patient does not open eyes. S/P trach and PEG placement. Continuous mechanical ventilation. Patient opened and closed mouth multiple times today. Patient is in decerebrate posture. Family wants all measures taken to keep patient alive. Family wants to bring patient back to [place] but does not have the money for it per Case Management. Awaiting placement. Review of Systems - Review of Systems Systems not reviewed;Unavailable: Altered Mental Status Objective - Vital Signs/Intake and Output Vital Signs (last 24 hours): Vital Signs - 24 hr 06/26/15 06/26/15 06/26/15 14:00 19:00 21:49 Temperature 97.9 F 98.6 F Pulse Rate 68 72 69 Respiratory 20 24 Rate Blood Pressure 110/70 112/72 O2 Sat by Pulse 100 100 Oximetry 06/27/15 06/27/15 06/27/15 05:00 07:55 10:14 Temperature 99.1 F Pulse Rate 76 76 Respiratory 20 Rate Blood Pressure 125/75 125/75 O2 Sat by Pulse 100 Oximetry Intake and Output (last 12 hours): Intake & Output 06/26/15 06/27/15 06/27/15 18:59 06:59 18:59 Intake Total 1580 Output Total 200 875 Balance -200 705 Intake: Intake, IV Amount 650 Left Forearm 400 L FA #18 250 Tube Feeding 930 Output: Urine 200 875 Urethral (Yoo) 200 875 Other: # Bowel Movements 0 - Medications Medications: Current Medications Amiodarone HCl (Cordarone) 200 mg PO DAILY [facility] Last Admin: 06/27/15 10:15 Dose: 200 mg Aspirin (Aspirin) 325 mg PO DAILY [facility] Last Admin: 06/27/15 10:15 Dose: 325 mg Clopidogrel Bisulfate (Plavix) 75 mg PO DAILY [facility] Last Admin: 06/27/15 10:15 Dose: 75 mg Enalapril Maleate (Vasotec) 2.5 mg PO DAILY [facility] Last Admin: 06/27/15 10:14 Dose: 2.5 mg Famotidine (Pepcid) 20 mg PO BID [facility] Last Admin: 06/27/15 10:15 Dose: 20 mg Fosphenytoin Sodium 100 mg/ (Dextrose) 52 mls @ 100 mls/hr IV Q8H [facility] Last Admin: 06/27/15 04:00 Dose: 100 mls/hr Piperacillin Sod/Tazobactam Sod (Zosyn 3.375 Gm Iv Premix) 50 mls @ 100 mls/hr IVPB Q8H [facility] Last Admin: 06/27/15 10:16 Dose: 100 mls/hr Polyethylene Glycol (Miralax) 17 gm PO DAILY [facility] Last Admin: 06/27/15 10:15 Dose: 17 gm Potassium Chloride (Potassium Chloride Oral Soln) 40 meq NG DAILY [facility] Last Admin: 06/27/15 10:15 Dose: 40 meq - Labs Labs (last 24 hours): Laboratory Results - last 24 hr 06/27/15 07:21 WBC 11.9 H RBC 3.59 L Hgb 11.1 L Hct 33.2 L MCV 92.3 MCH 31.0 MCHC 33.6 RDW 14.6 H Plt Count 506 H MPV 7.2 Neut % (Auto) 84.3 H Lymph % (Auto) 7.7 L [place] % (Auto) 6.7 Eos % (Auto) 0.9 Baso % (Auto) 0.4 Neut # 10.0 H Lymph # 0.9 L [place] # 0.8 Eos # 0.1 Baso # 0.1 Neutrophils % (Manual) 88 H Band Neutrophils % 2 H Lymphocytes % (Manual) 4 L Monocytes % (Manual) 5 Basophils % (Manual) 1 Toxic Granulation Present Platelet Estimate Normal Hypochromasia (manual) Slight Sodium 133 Potassium 4.2 Chloride 101 Carbon Dioxide 26 Anion Gap 11 BUN 21 H Creatinine 0.7 L Est GFR ( Amer) > 60 Est GFR (Non-Af Amer) > 60 Random Glucose 109 Calcium 7.9 L Phosphorus 3.7 Magnesium 2.3 Total Bilirubin 0.4 AST 109 H ALT 151 H Alkaline Phosphatase 120 Total Protein 6.8 Albumin 3.1 L Globulin 3.7 Albumin/Globulin Ratio 0.8 L - Constitutional Appears: Chronically Ill - Eye Exam Pupil Exam: Unequal - ENT Exam ENT Exam: Mucous Membranes Moist - Respiratory Exam Respiratory Exam: Clear to PA & Lateral, NORMAL BREATHING PATTERN. absent: Wheezes - Cardiovascular Exam Cardiovascular Exam: REGULAR RHYTHM, +S1, +S2 - GI/Abdominal Exam GI & Abdominal Exam: Normal Bowel Sounds, Soft. absent: Distended, Firm Additional comments: peg tube in place - blood around insertion - Extremities Exam Extremities exam: normal capillary refill, pedal pulses present. absent: pedal edema - Neurological Exam Neurological exam: Altered - Skin Skin Exam: Normal Color Assessment/Plan (1) Leukocytosis Current Visit: Yes Status: Acute Comment: 06/27: WBC 11.9, N 88%, 2 bands 06/26: WBC: 14.1 N 87.5% No bands 06/25/15: WBC 12.5, N 86%, 2 Bands Afebrile since 06/22 (100.4 on 06/22) Monitor WBC Monitor temperature - pancultures if there is a fever (2) Respiratory failure Current Visit: Yes Status: Acute Comment: Pulmonology consulted - Dr. Damian Stoner very much appreciated 06/27 CPAP trial was attempted bedside. Pt failed CPAP trial. Pt remains on PRVC mechanical ventilation. 06/21 was S/P day 1 of trach and PEG with dr. Chan. (3) Anoxic encephalopathy Current Visit: Yes Status: Acute Comment: 06/27: Reconsulted Dr. Jose stoner very much appreciated EEG and Cerebral flow scan ordered - follow up results for brain 06/26: No changes, decerebrate posture 06/25: No changes, decorticate posture; goal rate of tube feeding set to 60mls/ hour S/p trach and peg placement 8: No acute changes. Gave Thorazine 25mg IM to control hiccups. S/P trach and PEG placement, POD#4. 06/23: No acute changes. S/P trach and PEG placement, POD#3. 06/22 Spoke with family about transporationt to [place], family requested initial reports from admission. Patient is given 25mg of IM Thorazine for hiccup like movements. 06/21: S/P Trach and PEG. POD #1 Waiting for placement Transfer out of ICU today Head CT (06/20) - Global ischemia. Diffuse loss of lester white matter differentiation. This is most likely the results of an anoxic event such as cardiac arrest. 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 No evidence of downward herniation or midline shift. Most likely due to cardiac arrest Family still wants full code. Intubated Unresponsive to painful stimuli Palliative care on case (4) CAD (coronary artery disease) Current Visit: Yes Status: Acute Comment: Cardiac Catheterization showed occluded RCA and LAD (5) STEMI (ST elevation myocardial infarction) Current Visit: Yes Status: Acute Comment: Cardiac cath on 06/13 with occluded RCA and left main Continue ASA 325mg PO daily Cont Plavix 75mg PO daily Cont atenolol 12.5mg pO daily Cont Vasotec 2.5mg PO daily (6) Laceration of head Current Visit: Yes Status: Acute Comment: healed monitor (7) Seizures Current Visit: Yes Status: Acute Comment: continue to monitor for seizures Dr. Garcia on case-help appreciated likely secondary to anoxic injury Fosphenytoin 100mg IVP Q8 + 500mg IVP STAT Ativan 2mg stat dose Monitor (8) Prophylactic measure Current Visit: Yes Status: Acute Comment: Pepcid 20 mg IVP q12 SCD's Plavix Miralax <Wendi Mercedes R - Last Filed: 06/27/15 15:06> Subjective - Subjective Subjective: Medical Attending Note: Patient seen and examined by me with resident. Agree with resident HPI/Exam/A&P with appropriate additions and changes. All labs reviewed by me. Patient on trach and vent. Patient does not open eyes. Patient was moving mouth during the exam. Patient does not respond to verbal or painful stimuli. Patient afebrile. Objective - Vital Signs/Intake and Output Vital Signs (last 24 hours): Vital Signs - 24 hr 06/26/15 06/26/15 06/27/15 19:00 21:49 05:00 Temperature 98.6 F 99.1 F Pulse Rate 72 69 76 Respiratory 24 20 Rate Blood Pressure 112/72 125/75 O2 Sat by Pulse 100 100 Oximetry 06/27/15 06/27/15 07:55 10:14 Temperature Pulse Rate 76 Respiratory Rate Blood Pressure 125/75 O2 Sat by Pulse Oximetry Intake and Output (last 12 hours): Intake & Output 06/26/15 06/27/15 06/27/15 18:59 06:59 18:59 Intake Total 1580 Output Total 200 875 Balance -200 705 Intake: Intake, IV Amount 650 Left Forearm 400 L FA #18 250 Tube Feeding 930 Output: Urine 200 875 Urethral (Yoo) 200 875 Other: # Bowel Movements 0 - Medications Medications: Current Medications Amiodarone HCl (Cordarone) 200 mg PO DAILY [facility] Last Admin: 06/27/15 10:15 Dose: 200 mg Aspirin (Aspirin) 325 mg PO DAILY [facility] Last Admin: 06/27/15 10:15 Dose: 325 mg Clopidogrel Bisulfate (Plavix) 75 mg PO DAILY [facility] Last Admin: 06/27/15 10:15 Dose: 75 mg Enalapril Maleate (Vasotec) 2.5 mg PO DAILY [facility] Last Admin: 06/27/15 10:14 Dose: 2.5 mg Famotidine (Pepcid) 20 mg PO BID [facility] Last Admin: 06/27/15 10:15 Dose: 20 mg Fosphenytoin Sodium 100 mg/ (Dextrose) 52 mls @ 100 mls/hr IV Q8H [facility] Last Admin: 06/27/15 04:00 Dose: 100 mls/hr Piperacillin Sod/Tazobactam Sod (Zosyn 3.375 Gm Iv Premix) 50 mls @ 100 mls/hr IVPB Q8H [facility] Last Admin: 06/27/15 10:16 Dose: 100 mls/hr Polyethylene Glycol (Miralax) 17 gm PO DAILY [facility] Last Admin: 06/27/15 10:15 Dose: 17 gm Potassium Chloride (Potassium Chloride Oral Soln) 40 meq NG DAILY [facility] Last Admin: 06/27/15 10:15 Dose: 40 meq - Labs Labs (last 24 hours): Laboratory Results - last 24 hr 06/27/15 07:21 WBC 11.9 H RBC 3.59 L Hgb 11.1 L Hct 33.2 L MCV 92.3 MCH 31.0 MCHC 33.6 RDW 14.6 H Plt Count 506 H MPV 7.2 Neut % (Auto) 84.3 H Lymph % (Auto) 7.7 L [place] % (Auto) 6.7 Eos % (Auto) 0.9 Baso % (Auto) 0.4 Neut # 10.0 H Lymph # 0.9 L [place] # 0.8 Eos # 0.1 Baso # 0.1 Neutrophils % (Manual) 88 H Band Neutrophils % 2 H Lymphocytes % (Manual) 4 L Monocytes % (Manual) 5 Basophils % (Manual) 1 Toxic Granulation Present Platelet Estimate Normal Hypochromasia (manual) Slight Sodium 133 Potassium 4.2 Chloride 101 Carbon Dioxide 26 Anion Gap 11 BUN 21 H Creatinine 0.7 L Est GFR ( Amer) > 60 Est GFR (Non-Af Amer) > 60 Random Glucose 109 Calcium 7.9 L Phosphorus 3.7 Magnesium 2.3 Total Bilirubin 0.4 AST 109 H ALT 151 H Alkaline Phosphatase 120 Total Protein 6.8 Albumin 3.1 L Globulin 3.7 Albumin/Globulin Ratio 0.8 L - Constitutional Appears: No Acute Distress, Chronically Ill, Other (on vent) - Head Exam Head Exam: ATRAUMATIC, NORMOCEPHALIC - Eye Exam Eye Exam: absent: Scleral icterus Pupil Exam: Unequal - ENT Exam ENT Exam: Mucous Membranes Moist - Respiratory Exam Respiratory Exam: absent: Rales, Rhonchi, Wheezes Additional comments: mechanical vent sounds heard positive trach - Cardiovascular Exam Cardiovascular Exam: REGULAR RHYTHM, +S1, +S2. absent: Diastolic murmur, Gallop , Rubs, Systolic Murmur - GI/Abdominal Exam GI & Abdominal Exam: Normal Bowel Sounds, Soft. absent: Distended Additional comments: positive PEG - Extremities Exam Extremities exam: pedal pulses present Additional comments: no c/c appreciated - Neurological Exam Neurological exam: Altered Additional comments: patient on vent does not respond to painful stimuli or verbal stimuli - Skin Skin Exam: Dry, Warm Assessment/Plan (1) Anoxic encephalopathy Current Visit: Yes Status: Acute Comment: 06/27: Reconsulted Dr. Garcia - help very much appreciated EEG and Cerebral flow scan ordered -f/u resultes s/p PEG and trach Monitor /4: No changes, decerebrate posture 8/: No changes, decorticate posture; goal rate of tube feeding set to 60mls/ hour S/p trach and peg placement 06/24: No acute changes. Gave Thorazine 25mg IM to control hiccups. S/P trach and PEG placement, POD#4. 8: No acute changes. S/P trach and PEG placement, POD#3. 06/22 Spoke with family about transporationt to [place], family requested initial reports from admission. Patient is given 25mg of IM Thorazine for hiccup like movements. 06/21: S/P Trach and PEG. POD #1 Waiting for placement Transfer out of ICU today Head CT (06/20) - Global ischemia. Diffuse loss of lester white matter differentiation. This is most likely the results of an anoxic event such as cardiac arrest. 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 No evidence of downward herniation or midline shift. Most likely due to cardiac arrest Family still wants full code. Intubated Unresponsive to painful stimuli Palliative care on case (2) Respiratory failure Current Visit: Yes Status: Acute Comment: Pulmonology consulted - Dr. Salgado - help appreciated 06/27: CPAP trial was attempted bedside. Pt failed CPAP trial. Pt remains on PRVC mechanical ventilation. s/p Trach (3) Cardiac arrest Current Visit: Yes Status: Acute Comment: S/P V-Tach arrest Dr. Spivey on case-help appreciated Continue Amiodarone 200mg daily Cont ASA 325 mg po daily Cont Plavix 75 mg po daily Cont Enalapril 2.5 mg po daily Monitor (4) Leukocytosis Current Visit: Yes Status: Acute Comment: 06/27: WBC 11.9, N 88%, 2 bands Cont Zosyn Monitor 06/26: WBC: 14.1 N 87.5% No bands 06/25/15: WBC 12.5, N 86%, 2 Bands Afebrile since 06/22 (100.4 on 06/22) Monitor WBC Monitor temperature - pancultures if there is a fever (5) STEMI (ST elevation myocardial infarction) Current Visit: Yes Status: Acute Comment: Continue ASA 325mg PO daily Cont Plavix 75mg PO daily Cont Vasotec 2.5mg PO daily (6) CAD (coronary artery disease) Current Visit: Yes Status: Acute Comment: s/p cardiac cath showing occluded RCA and LAD Cont ASA 325mg PO daily Cont Plavix 75mg PO daily Cont vasotec 2.5mg PO daily (7) Bronchopneumonia Current Visit: Yes Status: Acute Comment: Cont Zosyn Patient afebrile Leukocytosis improving monitor (8) Seizures Current Visit: Yes Status: Acute Comment: continue to monitor for seizures Dr. Garcia on case-help appreciated likely secondary to anoxic brain injury Cont Fosphenytoin 100mg IVP Q8 Monitor (9) Prophylactic measure Current Visit: Yes Status: Acute Comment: Pepcid 20 mg PO q12 SCD's Plavix Miralax - Date & Time Date: 06/27/15 Time: 14:48 Attending/Attestation - Attestation I have personally seen and examined this patient.: Yes I have fully participated in the care of the patient.: Yes I have reviewed all pertinent clinical information: Yes
--- NOTE | 2015-06-27 14:12 | NM ---
PROCEDURE: Nuclear medicine brain scan. HISTORY: brain determination COMPARISON: None available. TECHNIQUE: 21.1 mCi of technetium DTPA was administered intravenously. Sequential images of the brain were obtained in the immediate flow, intermediate and delayed basis of tracer activity. FINDINGS: There is persistent flow in the posterior aspect of the brain. No flow is detected in the majority of the supratentorial brain. Flow is also seen within the superior sagittal and transverse sinuses. IMPRESSION: Persistent flow in the posterior aspect of the brain, with no flow detected in the majority of the supratentorial brain.
[2015-06-28] MEDS: Fosphenytoin 100 MG in Dextrose 5% In Water 50 ML IV SCH ×3 (03:27→20:10)
[2015-06-28 07:39] LABS: BASO # 0.1 K/uL (0.0-0.2); BASO % 0.6 % (0.0-2.0); EOS # 0.1 K/uL (0.0-0.7); EOS % 1.1 % (0.0-4.0); HEMOGLOBIN 11.4 g/dL (12.0-18.0); LYMPH # 0.9 K/uL (1.0-4.3); LYMPH % 9.1 % (20.0-40.0); MEAN CELL VOLUME 92.1 fL (80.0-94.0); MEAN CORPUSCULAR HEMOGLOBIN 31.2 pg (27.0-31.0); MEAN CORPUSCULAR HGB CONC 33.9 g/dL (33.0-37.0); MEAN PLATELET VOLUME 7.3 fL (7.2-11.7); MONO # 0.7 K/uL (0.0-0.8); MONO % 7.5 % (0.0-10.0); NEUT # 7.9 K/uL (1.8-7.0); NEUT % 81.7 % (50.0-75.0); PLATELET COUNT 543 K/uL (130-400); RBC 3.64 Mil/uL (4.40-5.90); RED CELL DISTRIBUTION WIDTH 14.7 % (11.5-14.5); WHITE BLOOD COUNT 9.7 K/uL (4.8-10.8)
[2015-06-28 08:08] LABS: ALBUMIN 3.2 g/dL (3.5-5.0)
[2015-06-28 08:11] LABS: AST/SGOT 119 U/L (17-59); BLOOD UREA NITROGEN 22 mg/dL (9-20); GFR NON-AFRICAN AMERICAN > 60
[2015-06-28 08:12] LABS: ALT/SGPT 149 U/L (21-72); CALCIUM 8.5 mg/dL (8.4-10.2)
[2015-06-28 08:17] LABS: ALB/GLOB RATIO 0.8 (1.0-2.1)
--- NOTE | 2015-06-28 08:25 | PN ---
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 PHYSICAL EXAMINATION: VITAL SIGNS: Blood pressure 108/74, pulse rate 78 and regular, respiratory rate 20-30 on mechanical vent. Temperature 98 degrees Fahrenheit. NEUROLOGIC: The patient is comatose. Eyes are partially opened. No spontaneous movement noted in all four extremities. On passively opening the eyelids, pupils are sluggishly reactive to light on either side. Corneal reflexes are present but it is sluggish. Oculocephalic present on either side. Gag is impaired; not able to evaluate at present. The patient does not show any spontaneous activities. Tone is flaccid in all 4 extremities. Deep tendon reflexes absent. Plantars are mute. CONCLUSION: Postanoxic encephalopathy, status post tracheostomy and percutaneous endoscopic gastrostomy, presenting with global cerebral dysfunction with an intact brainstem. The clinical exam does not show brain . The patient has brainstem function. The patient presenting with persistent vegetative stage. RECOMMENDATIONS: 1. The patient can have a CT of the head for followup evaluation to compare with the previous exam. 2. Nuclear study for cerebral blood flow. 3. EEG to assess his cortical functions. 4. All these 3 for testing would not establish that he is brain , but clinically the patient is not brain . 5. The patient will be followed if it is needed. Dennis Garcia MD cc: [id number] TT: 06/28/2015 08:26:01 [email or web address]
[2015-06-28 08:26] LABS: ANISOCYTOSIS SLIGHT; BASOPHIL 1 % (0-2); EOSINOPHIL 1 % (0-4); HYPOCHROMIC SLIGHT; LYMPHOCYTE 9 % (20-40); MONOCYTE 7 % (0-10); NEUTROPHIL 82 % (50-75); PLATELET ESTIMATE NORMAL (NORMAL); POIKILOCYTOSIS SLIGHT; TOTAL CELLS COUNTED 100
[2015-06-28 08:27] LABS: TOXIC GRANULATION PRESENT
[2015-06-28] MEDS: POLYETHYLENE GLYCOL 3350 17 GM/Dose PACKET PO SCH (09:55)
[2015-06-28] MEDS: Potassium Chloride 20 mEq/15 ml LIQ UD NG SCH (09:55)
--- NOTE | 2015-06-28 15:38 | CP.PCM.PN ---
Subjective - Subjective Subjective: Medical Attending Note: Patient seen and examined by me this AM. Patient on mechanical vent. patient with trach and PEG. Patient unresponsive to verbal and painful stimuli. Unable to obtain ROS from patient. Patient afebrile. Objective - Vital Signs/Intake and Output Vital Signs (last 24 hours): Vital Signs - 24 hr 06/27/15 06/28/15 06/28/15 22:00 05:33 09:55 Temperature 96.9 F L 98.0 F Pulse Rate 66 78 Respiratory 20 20 Rate Blood Pressure 129/78 108/74 128/74 O2 Sat by Pulse 100 100 Oximetry 06/28/15 14:00 Temperature 98.8 F Pulse Rate 64 Respiratory 20 Rate Blood Pressure 117/75 O2 Sat by Pulse 98 Oximetry Intake and Output (last 12 hours): Intake & Output 06/27/15 06/28/15 06/28/15 18:59 06:59 18:59 Intake Total 700 Output Total 1650 300 Balance 700 -1650 -300 Intake: Tube Feeding 400 Other 300 Output: Urine 1650 300 Urethral (Yoo) 1650 300 - Medications Medications: Current Medications Amiodarone HCl (Cordarone) 200 mg PO DAILY [facility] Last Admin: 06/28/15 09:54 Dose: 200 mg Aspirin (Aspirin) 325 mg PO DAILY [facility] Last Admin: 06/28/15 09:54 Dose: 325 mg Clopidogrel Bisulfate (Plavix) 75 mg PO DAILY [facility] Last Admin: 06/28/15 09:55 Dose: 75 mg Enalapril Maleate (Vasotec) 2.5 mg PO DAILY [facility] Last Admin: 06/28/15 09:55 Dose: 2.5 mg Famotidine (Pepcid) 20 mg PO BID [facility] Last Admin: 06/28/15 09:55 Dose: 20 mg Fosphenytoin Sodium 100 mg/ (Dextrose) 52 mls @ 100 mls/hr IV Q8H [facility] Last Admin: 06/28/15 03:27 Dose: 100 mls/hr Polyethylene Glycol (Miralax) 17 gm PO DAILY [facility] Last Admin: 06/28/15 09:55 Dose: Not Given Potassium Chloride (Potassium Chloride Oral Soln) 40 meq NG DAILY [facility] Last Admin: 06/28/15 09:55 Dose: 40 meq - Labs Labs (last 24 hours): Laboratory Results - last 24 hr 06/28/15 07:12 WBC 9.7 RBC 3.64 L Hgb 11.4 L Hct 33.5 L MCV 92.1 MCH 31.2 H MCHC 33.9 RDW 14.7 H Plt Count 543 H MPV 7.3 Neut % (Auto) 81.7 H Lymph % (Auto) 9.1 L [place] % (Auto) 7.5 Eos % (Auto) 1.1 Baso % (Auto) 0.6 Neut # 7.9 H Lymph # 0.9 L [place] # 0.7 Eos # 0.1 Baso # 0.1 Neutrophils % (Manual) 82 H Lymphocytes % (Manual) 9 L Monocytes % (Manual) 7 Eosinophils % (Manual) 1 Basophils % (Manual) 1 Toxic Granulation Present Platelet Estimate Normal Hypochromasia (manual) Slight Poikilocytosis (manual Slight Anisocytosis (manual) Slight Sodium 134 Potassium 4.3 Chloride 99 Carbon Dioxide 26 Anion Gap 13 BUN 22 H Creatinine 0.7 L Est GFR ( Amer) > 60 Est GFR (Non-Af Amer) > 60 Random Glucose 133 H Calcium 8.5 Phosphorus 3.6 Magnesium 2.3 Total Bilirubin 0.4 AST 119 H ALT 149 H Alkaline Phosphatase 140 H Total Protein 7.4 Albumin 3.2 L Globulin 4.2 H Albumin/Globulin Ratio 0.8 L - Constitutional Appears: No Acute Distress, Chronically Ill - Head Exam Head Exam: ATRAUMATIC, NORMOCEPHALIC - Eye Exam Eye Exam: absent: Scleral icterus Pupil Exam: Unequal - ENT Exam ENT Exam: Mucous Membranes Moist Additional comments: positive trach with dry blood around trach - Respiratory Exam Respiratory Exam: absent: Rales, Wheezes Additional comments: coarse sounds mechanical vent sounds - Cardiovascular Exam Cardiovascular Exam: REGULAR RHYTHM, +S1, +S2. absent: Diastolic murmur, Gallop , Rubs, Systolic Murmur - GI/Abdominal Exam GI & Abdominal Exam: Normal Bowel Sounds, Soft. absent: Distended Additional comments: positive PEG - Extremities Exam Extremities exam: pedal pulses present Additional comments: b/l LE edema - Neurological Exam Neurological exam: Altered. absent: Alert Additional comments: unresponsive to verbal and painful stimuli does open and close mouth spontaneously - Skin Skin Exam: Dry, Warm Assessment/Plan (1) Anoxic encephalopathy Current Visit: Yes Status: Acute Comment: 06/28: cerebral flow scan with persistent flow in posterior aspect of brain, no flow in majority of supratentorial brain (please see full report) Patient in persistent vegatative state as per neuro Patient with PEG and Trach Cont fosphenytoin 06/27: Reconsulted Dr. Garcia - herbie very much appreciated EEG and Cerebral flow scan ordered -f/u resultes s/p PEG and trach Monitor 06/26: No changes, decerebrate posture 06/25: No changes, decorticate posture; goal rate of tube feeding set to 60mls/ hour S/p trach and peg placement 06/24: No acute changes. Gave Thorazine 25mg IM to control hiccups. S/P trach and PEG placement, POD#4. 8: No acute changes. S/P trach and PEG placement, POD#3. 06/22 Spoke with family about transporationt to [place], family requested initial reports from admission. Patient is given 25mg of IM Thorazine for hiccup like movements. 06/21: S/P Trach and PEG. POD #1 Waiting for placement Transfer out of ICU today Head CT (06/20) - Global ischemia. Diffuse loss of lester white matter differentiation. This is most likely the results of an anoxic event such as cardiac arrest. 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 No evidence of downward herniation or midline shift. Most likely due to cardiac arrest Family still wants full code. Intubated Unresponsive to painful stimuli Palliative care on case (2) Respiratory failure Current Visit: Yes Status: Acute Comment: Pulmonology consulted - Dr. Salgado - herbie appreciated CPAP trial failed 06/27/15, continue mechanical ventilation s/p trach Monitor (3) Cardiac arrest Current Visit: Yes Status: Acute Comment: S/P V-Tach arrest Cont ASA 325mg PO daily Continue Amiodarone 200mg PO daily Cont enalapril 2.5mg PO daily Cont Plavix 75 mg po daily Monitor (4) Leukocytosis Current Visit: Yes Status: Acute Comment: Resolved Afebrile s/p treatment with Zosyn blood culture and urine cultures negative monitor (5) STEMI (ST elevation myocardial infarction) Current Visit: Yes Status: Acute Comment: Continue ASA 325mg PO daily Cont Vasotec 2.5mg PO daily Cont Plavix 75mg PO daily (6) CAD (coronary artery disease) Current Visit: Yes Status: Acute Comment: s/p cardiac cath showing occluded RCA and LAD, s/p stent Cont ASA 325mg PO daily Cont Vasotec 2.5mg PO daily Cont Plavix 75mg PO daily (7) Bronchopneumonia Current Visit: Yes Status: Acute Comment: s/p treatment with Zosyn Leukocytosis resolved patient afebrile Monitor (8) Seizures Current Visit: Yes Status: Acute Comment: continue to monitor for seizures Dr. Garcia on case-help appreciated likely secondary to anoxic brain injury Cont Fosphenytoin 100mg IVP Q8 (9) Prophylactic measure Current Visit: Yes Status: Acute Comment: Pepcid 20 mg PO q12 SCD's Plavix Miralax - Date & Time Date: 06/28/15 Time: 15:43 Attending/Attestation - Attestation I have personally seen and examined this patient.: Yes I have fully participated in the care of the patient.: Yes I have reviewed all pertinent clinical information: Yes
[2015-06-29] MEDS: Fosphenytoin 100 MG in Dextrose 5% In Water 50 ML IV SCH ×3 (03:50→20:30)
[2015-06-29 07:49] LABS: BASO # 0.1 K/uL (0.0-0.2); BASO % 0.8 % (0.0-2.0); EOS # 0.1 K/uL (0.0-0.7); EOS % 0.6 % (0.0-4.0); HEMOGLOBIN 11.5 g/dL (12.0-18.0); LYMPH % 12.2 % (20.0-40.0); MEAN CELL VOLUME 92.5 fL (80.0-94.0); MEAN CORPUSCULAR HEMOGLOBIN 30.9 pg (27.0-31.0); MEAN CORPUSCULAR HGB CONC 33.4 g/dL (33.0-37.0); MEAN PLATELET VOLUME 7.2 fL (7.2-11.7); MONO # 0.7 K/uL (0.0-0.8); NEUT # 6.5 K/uL (1.8-7.0); NEUT % 78.4 % (50.0-75.0); RBC 3.72 Mil/uL (4.40-5.90); RED CELL DISTRIBUTION WIDTH 14.5 % (11.5-14.5); WHITE BLOOD COUNT 8.3 K/uL (4.8-10.8)
[2015-06-29 08:03] LABS: ALBUMIN 3.3 g/dL (3.5-5.0)
[2015-06-29 08:06] LABS: ALB/GLOB RATIO 0.8 (1.0-2.1); AST/SGOT 162 U/L (17-59); BLOOD UREA NITROGEN 23 mg/dL (9-20); GFR NON-AFRICAN AMERICAN > 60
[2015-06-29 08:07] LABS: ALT/SGPT 229 U/L (21-72); CALCIUM 8.5 mg/dL (8.4-10.2)
[2015-06-29] MEDS: Potassium Chloride 20 mEq/15 ml LIQ UD NG SCH (10:57)
[2015-06-29] MEDS: POLYETHYLENE GLYCOL 3350 17 GM/Dose PACKET PO SCH (10:57)
--- NOTE | 2015-06-29 12:45 | CP.PCM.PN ---
Subjective - Subjective Subjective: Pt seen and examined this AM. Pt remains unresponsive to verbal and painful stimulation. ROS unobtainable. Pt remains on mechanical ventilation with trach in place. Review of Systems - Review of Systems Systems not reviewed;Unavailable: Other (persistent vegetative state) Objective - Vital Signs/Intake and Output Vital Signs (last 24 hours): Vital Signs - 24 hr 06/28/15 06/28/15 06/29/15 14:00 21:13 06:25 Temperature 98.8 F 98.1 F 98.5 F Pulse Rate 64 67 71 Respiratory 20 20 20 Rate Blood Pressure 117/75 104/69 111/72 O2 Sat by Pulse 98 100 100 Oximetry 06/29/15 10:58 Temperature Pulse Rate Respiratory Rate Blood Pressure 111/72 O2 Sat by Pulse Oximetry Intake and Output (last 12 hours): Intake & Output 06/28/15 06/29/15 06/29/15 18:59 06:59 18:59 Intake Total 100 Output Total 300 300 Balance -300 -200 Intake: Intake, IV Amount 100 Left Forearm 100 Output: Urine 300 300 Urethral (Yoo) 300 300 Other: Voiding Method Indwelling Catheter Indwelling Catheter - Medications Medications: Current Medications Amiodarone HCl (Cordarone) 200 mg PO DAILY [facility] Last Admin: 06/29/15 10:57 Dose: 200 mg Aspirin (Aspirin) 325 mg PO DAILY [facility] Last Admin: 06/29/15 10:57 Dose: 325 mg Clopidogrel Bisulfate (Plavix) 75 mg PO DAILY [facility] Last Admin: 06/29/15 10:57 Dose: 75 mg Enalapril Maleate (Vasotec) 2.5 mg PO DAILY [facility] Last Admin: 06/29/15 10:58 Dose: 2.5 mg Famotidine (Pepcid) 20 mg PO BID [facility] Last Admin: 06/29/15 10:57 Dose: 20 mg Fosphenytoin Sodium 100 mg/ (Dextrose) 52 mls @ 100 mls/hr IV Q8H [facility] Last Admin: 06/29/15 03:50 Dose: 100 mls/hr Polyethylene Glycol (Miralax) 17 gm PO DAILY [facility] Last Admin: 06/29/15 10:57 Dose: 17 gm Potassium Chloride (Potassium Chloride Oral Soln) 40 meq NG DAILY [facility] Last Admin: 06/29/15 10:57 Dose: 40 meq - Labs Labs (last 24 hours): Laboratory Results - last 24 hr 06/29/15 07:23 WBC 8.3 RBC 3.72 L Hgb 11.5 L Hct 34.4 L MCV 92.5 MCH 30.9 MCHC 33.4 RDW 14.5 Plt Count 521 H MPV 7.2 Neut % (Auto) 78.4 H Lymph % (Auto) 12.2 L [place] % (Auto) 8.0 Eos % (Auto) 0.6 Baso % (Auto) 0.8 Neut # 6.5 Lymph # 1.0 [place] # 0.7 Eos # 0.1 Baso # 0.1 Sodium 137 Potassium 4.2 Chloride 103 Carbon Dioxide 27 Anion Gap 11 BUN 23 H Creatinine 0.7 L Est GFR ( Amer) > 60 Est GFR (Non-Af Amer) > 60 Random Glucose 120 H Calcium 8.5 Phosphorus 3.7 Magnesium 2.3 Total Bilirubin 0.3 AST 162 H D ALT 229 H D Alkaline Phosphatase 156 H Total Protein 7.4 Albumin 3.3 L Globulin 4.2 H Albumin/Globulin Ratio 0.8 L - Constitutional Appears: Other (unresponsive) - Head Exam Head Exam: NORMAL INSPECTION - Eye Exam Pupil Exam: Unequal - Neck Exam Additional comments: trach in place - Respiratory Exam Respiratory Exam: Clear to PA & Lateral. absent: Rales, Rhonchi, Wheezes Additional comments: mechanically ventilated - Cardiovascular Exam Cardiovascular Exam: REGULAR RHYTHM, RRR, +S1, +S2. absent: Clicks, Diastolic murmur, Gallop, Rubs, Systolic Murmur - Neurological Exam Neurological exam: Altered (unresponsive) Assessment/Plan (1) Respiratory failure Current Visit: Yes Status: Acute Comment: Cont mechanical ventilation CPAP trial failed 06/27/15 s/p trach Monitor (2) Anoxic encephalopathy Current Visit: Yes Status: Acute Comment: 06/28: cerebral flow scan with persistent flow in posterior aspect of brain, no flow in majority of supratentorial brain (please see full report) Patient in persistent vegatative state as per neuro Patient with PEG and Trach Cont fosphenytoin 06/27: Reconsulted Dr. Garcia - help very much appreciated EEG and Cerebral flow scan ordered -f/u resultes s/p PEG and trach Monitor 06/26: No changes, decerebrate posture 06/25: No changes, decorticate posture; goal rate of tube feeding set to 60mls/ hour S/p trach and peg placement /: No acute changes. Gave Thorazine 25mg IM to control hiccups. S/P trach and PEG placement, POD#4. 8: No acute changes. S/P trach and PEG placement, POD#3. 06/22 Spoke with family about transporationt to [place], family requested initial reports from admission. Patient is given 25mg of IM Thorazine for hiccup like movements. 06/21: S/P Trach and PEG. POD #1 Waiting for placement Transfer out of ICU today Head CT (06/20) - Global ischemia. Diffuse loss of lester white matter differentiation. This is most likely the results of an anoxic event such as cardiac arrest. 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 No evidence of downward herniation or midline shift. Most likely due to cardiac arrest Family still wants full code. Intubated Unresponsive to painful stimuli Palliative care on case (3) Bronchopneumonia Current Visit: Yes Status: Acute Comment: s/p treatment with Zosyn Leukocytosis resolved patient afebrile Monitor (4) Cardiac arrest Current Visit: Yes Status: Acute Comment: S/P V-Tach arrest Cont ASA 325mg PO daily Continue Amiodarone 200mg PO daily Cont enalapril 2.5mg PO daily Cont Plavix 75 mg po daily Monitor (5) STEMI (ST elevation myocardial infarction) Current Visit: Yes Status: Acute Comment: Continue ASA 325mg PO daily Cont Vasotec 2.5mg PO daily Cont Plavix 75mg PO daily
--- NOTE | 2015-06-29 16:28 | CP.PCM.PN ---
<Judith Baires H - Last Filed: 06/29/15 16:23> Subjective - Subjective Subjective: Patient seen and examined at bedside by me this AM. Patient unresponsive to verbal and painful stimuli after anoxic brain injury post OR. S/P trach and PEG placement. Continuous mechanical ventilation. Patient opened and closed mouth multiple times today. Patient is in decerebrate posture. Family wants all measures taken to keep patient alive. Daughter present at bedside. Daughter wanted to know if patient can be taken off mechanical ventilation for placement in a [facility] in [place]. The results of the CPAP trial by Dr. Salgado on 06/27 were explained to her in that the pateint was unable to be weaned off the mechanical ventilation. The results of the cerebral flow scan were also explained to her. DNR/DNI options were again explained and offered to daughter. Daughter wants all measures taken to keep patient alive. Awaiting placement. Review of Systems - Review of Systems Systems not reviewed;Unavailable: Altered Mental Status Objective - Vital Signs/Intake and Output Vital Signs (last 24 hours): Vital Signs - 24 hr 06/28/15 06/29/15 06/29/15 21:13 06:25 07:45 Temperature 98.1 F 98.5 F Pulse Rate 67 71 65 Respiratory 20 20 Rate Blood Pressure 104/69 111/72 O2 Sat by Pulse 100 100 Oximetry 06/29/15 06/29/15 10:58 14:00 Temperature 97 F L Pulse Rate 65 Respiratory 20 Rate Blood Pressure 111/72 113/74 O2 Sat by Pulse 100 Oximetry Intake and Output (last 12 hours): Intake & Output 06/28/15 06/29/15 06/29/15 18:59 06:59 18:59 Intake Total 100 Output Total 300 300 200 Balance -300 -200 -200 Intake: Intake, IV Amount 100 Left Forearm 100 Output: Urine 300 300 200 Urethral (Yoo) 300 300 200 Other: Voiding Method Indwelling Catheter Indwelling Catheter # Bowel Movements 0 - Medications Medications: Current Medications Amiodarone HCl (Cordarone) 200 mg PO DAILY [facility] Last Admin: 06/29/15 10:57 Dose: 200 mg Aspirin (Aspirin) 325 mg PO DAILY [facility] Last Admin: 06/29/15 10:57 Dose: 325 mg Clopidogrel Bisulfate (Plavix) 75 mg PO DAILY [facility] Last Admin: 06/29/15 10:57 Dose: 75 mg Enalapril Maleate (Vasotec) 2.5 mg PO DAILY [facility] Last Admin: 06/29/15 10:58 Dose: 2.5 mg Famotidine (Pepcid) 20 mg PO BID [facility] Last Admin: 06/29/15 10:57 Dose: 20 mg Fosphenytoin Sodium 100 mg/ (Dextrose) 52 mls @ 100 mls/hr IV Q8H [facility] Last Admin: 06/29/15 13:26 Dose: 100 mls/hr Polyethylene Glycol (Miralax) 17 gm PO DAILY [facility] Last Admin: 06/29/15 10:57 Dose: 17 gm Potassium Chloride (Potassium Chloride Oral Soln) 40 meq NG DAILY [facility] Last Admin: 06/29/15 10:57 Dose: 40 meq - Labs Labs (last 24 hours): Laboratory Results - last 24 hr 06/29/15 07:23 WBC 8.3 RBC 3.72 L Hgb 11.5 L Hct 34.4 L MCV 92.5 MCH 30.9 MCHC 33.4 RDW 14.5 Plt Count 521 H MPV 7.2 Neut % (Auto) 78.4 H Lymph % (Auto) 12.2 L [place] % (Auto) 8.0 Eos % (Auto) 0.6 Baso % (Auto) 0.8 Neut # 6.5 Lymph # 1.0 [place] # 0.7 Eos # 0.1 Baso # 0.1 Sodium 137 Potassium 4.2 Chloride 103 Carbon Dioxide 27 Anion Gap 11 BUN 23 H Creatinine 0.7 L Est GFR ( Amer) > 60 Est GFR (Non-Af Amer) > 60 Random Glucose 120 H Calcium 8.5 Phosphorus 3.7 Magnesium 2.3 Total Bilirubin 0.3 AST 162 H D ALT 229 H D Alkaline Phosphatase 156 H Total Protein 7.4 Albumin 3.3 L Globulin 4.2 H Albumin/Globulin Ratio 0.8 L - Constitutional Appears: Chronically Ill - Head Exam Head Exam: NORMAL INSPECTION Additional comments: head laceration above left eyebrow healed - just an approx. 1.5 cm scar left - Eye Exam Eye Exam: PERRL - ENT Exam ENT Exam: Mucous Membranes Moist - Respiratory Exam Respiratory Exam: Clear to PA & Lateral, NORMAL BREATHING PATTERN, UNREMARKABLE Additional comments: trach collar in place bleeding around sutures surgical team notified - Cardiovascular Exam Cardiovascular Exam: REGULAR RHYTHM, +S1, +S2 - GI/Abdominal Exam GI & Abdominal Exam: Normal Bowel Sounds, Soft. absent: Rigid Additional comments: peg in place - Extremities Exam Extremities exam: pedal pulses present. absent: pedal edema - Neurological Exam Neurological exam: Altered - Skin Skin Exam: Dry, Normal Color Assessment/Plan (1) Respiratory failure Current Visit: Yes Status: Acute Comment: Cont mechanical ventilation CPAP trial failed 06/27/15 s/p trach Monitor (2) Anoxic encephalopathy Current Visit: Yes Status: Acute Comment: 06/29:No changes Monitor responses to verbal and painful stimuli 06/28: cerebral flow scan with persistent flow in posterior aspect of brain, no flow in majority of supratentorial brain (please see full report) Patient in persistent vegatative state as per neuro Patient with PEG and Trach Cont fosphenytoin 06/27: Reconsulted Dr. Garcia - help very much appreciated EEG and Cerebral flow scan ordered -f/u resultes s/p PEG and trach Monitor /: No changes, decerebrate posture 06/25: No changes, decorticate posture; goal rate of tube feeding set to 60mls/ hour S/p trach and peg placement 8/: No acute changes. Gave Thorazine 25mg IM to control hiccups. S/P trach and PEG placement, POD#4. 06/23: No acute changes. S/P trach and PEG placement, POD#3. 06/22 Spoke with family about transporationt to [place], family requested initial reports from admission. Patient is given 25mg of IM Thorazine for hiccup like movements. 06/21: S/P Trach and PEG. POD #1 Waiting for placement Transfer out of ICU today Head CT (06/20) - Global ischemia. Diffuse loss of lester white matter differentiation. This is most likely the results of an anoxic event such as cardiac arrest. 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 No evidence of downward herniation or midline shift. Most likely due to cardiac arrest Family still wants full code. Intubated Unresponsive to painful stimuli Palliative care on case (3) CAD (coronary artery disease) Current Visit: Yes Status: Acute Comment: s/p cardiac cath showing occluded RCA and LAD, s/p stent Cont ASA 325mg PO daily Cont Vasotec 2.5mg PO daily Cont Plavix 75mg PO daily (4) STEMI (ST elevation myocardial infarction) Current Visit: Yes Status: Acute Comment: Continue ASA 325mg PO daily Cont Vasotec 2.5mg PO daily Cont Plavix 75mg PO daily (5) Seizures Current Visit: Yes Status: Acute Comment: continue to monitor for seizures Dr. Garcia on case-help appreciated likely secondary to anoxic brain injury Cont Fosphenytoin 100mg IVP Q8 (6) Prophylactic measure Current Visit: Yes Status: Acute Comment: Pepcid 20 mg PO q12 SCD's Plavix Miralax <Wendi Mercedes R - Last Filed: 06/29/15 16:46> Subjective - Subjective Subjective: Medical Attending Note: Patient seen and examined by me this AM with resident. Agree with resident HPI/ Exam/A&P with appropriate additions and changes. All new labs and studies reviewed by me. Patient does not respond to painful or verbal stimuli. spontaneous movements of mouth and eyes. Patient afebrile. Unable to obtain ROS from patient. Objective - Vital Signs/Intake and Output Vital Signs (last 24 hours): Vital Signs - 24 hr 06/28/15 06/29/15 06/29/15 21:13 06:25 07:45 Temperature 98.1 F 98.5 F Pulse Rate 67 71 65 Respiratory 20 20 Rate Blood Pressure 104/69 111/72 O2 Sat by Pulse 100 100 Oximetry 06/29/15 06/29/15 10:58 14:00 Temperature 97 F L Pulse Rate 65 Respiratory 20 Rate Blood Pressure 111/72 113/74 O2 Sat by Pulse 100 Oximetry Intake and Output (last 12 hours): Intake & Output 06/28/15 06/29/15 06/29/15 18:59 06:59 18:59 Intake Total 100 Output Total 300 300 200 Balance -300 -200 -200 Intake: Intake, IV Amount 100 Left Forearm 100 Output: Urine 300 300 200 Urethral (Yoo) 300 300 200 Other: Voiding Method Indwelling Catheter Indwelling Catheter # Bowel Movements 0 - Medications Medications: Current Medications Amiodarone HCl (Cordarone) 200 mg PO DAILY [facility] Last Admin: 06/29/15 10:57 Dose: 200 mg Aspirin (Aspirin) 325 mg PO DAILY [facility] Last Admin: 06/29/15 10:57 Dose: 325 mg Clopidogrel Bisulfate (Plavix) 75 mg PO DAILY [facility] Last Admin: 06/29/15 10:57 Dose: 75 mg Enalapril Maleate (Vasotec) 2.5 mg PO DAILY [facility] Last Admin: 06/29/15 10:58 Dose: 2.5 mg Famotidine (Pepcid) 20 mg PO BID [facility] Last Admin: 06/29/15 10:57 Dose: 20 mg Fosphenytoin Sodium 100 mg/ (Dextrose) 52 mls @ 100 mls/hr IV Q8H [facility] Last Admin: 06/29/15 13:26 Dose: 100 mls/hr Polyethylene Glycol (Miralax) 17 gm PO DAILY [facility] Last Admin: 06/29/15 10:57 Dose: 17 gm Potassium Chloride (Potassium Chloride Oral Soln) 40 meq NG DAILY [facility] Last Admin: 06/29/15 10:57 Dose: 40 meq - Labs Labs (last 24 hours): Laboratory Results - last 24 hr 06/29/15 07:23 WBC 8.3 RBC 3.72 L Hgb 11.5 L Hct 34.4 L MCV 92.5 MCH 30.9 MCHC 33.4 RDW 14.5 Plt Count 521 H MPV 7.2 Neut % (Auto) 78.4 H Lymph % (Auto) 12.2 L [place] % (Auto) 8.0 Eos % (Auto) 0.6 Baso % (Auto) 0.8 Neut # 6.5 Lymph # 1.0 [place] # 0.7 Eos # 0.1 Baso # 0.1 Sodium 137 Potassium 4.2 Chloride 103 Carbon Dioxide 27 Anion Gap 11 BUN 23 H Creatinine 0.7 L Est GFR ( Amer) > 60 Est GFR (Non-Af Amer) > 60 Random Glucose 120 H Calcium 8.5 Phosphorus 3.7 Magnesium 2.3 Total Bilirubin 0.3 AST 162 H D ALT 229 H D Alkaline Phosphatase 156 H Total Protein 7.4 Albumin 3.3 L Globulin 4.2 H Albumin/Globulin Ratio 0.8 L - Constitutional Appears: No Acute Distress, Chronically Ill - Head Exam Head Exam: ATRAUMATIC, NORMOCEPHALIC - Eye Exam Eye Exam: absent: Scleral icterus Pupil Exam: Unequal - ENT Exam Additional comments: trach in place with dry blood around it - Respiratory Exam Respiratory Exam: absent: Rales, Wheezes Additional comments: mechanical vent sounds - Cardiovascular Exam Cardiovascular Exam: REGULAR RHYTHM, +S1, +S2. absent: Diastolic murmur, Gallop , Rubs, Systolic Murmur - GI/Abdominal Exam GI & Abdominal Exam: Normal Bowel Sounds, Soft. absent: Distended Additional comments: PEG in place - Extremities Exam Extremities exam: pedal pulses present Additional comments: no edema appreciated - Neurological Exam Neurological exam: Altered Additional comments: patient unresponsive to painful and verbal stimuli - Skin Skin Exam: Dry, Warm Assessment/Plan (1) Anoxic encephalopathy Current Visit: Yes Status: Acute Comment: 06/29: No changes Monitor responses to verbal and painful stimuli Patient in persistent vegatative state Condition discussed with with daughter, All study results discussed with daughter 06/28: cerebral flow scan with persistent flow in posterior aspect of brain, no flow in majority of supratentorial brain (please see full report) Patient in persistent vegatative state as per neuro Patient with PEG and Trach Cont fosphenytoin 06/27: Reconsulted Dr. Garcia - help very much appreciated EEG and Cerebral flow scan ordered -f/u resultes s/p PEG and trach Monitor 06/26: No changes, decerebrate posture 06/25: No changes, decorticate posture; goal rate of tube feeding set to 60mls/ hour S/p trach and peg placement 8/: No acute changes. Gave Thorazine 25mg IM to control hiccups. S/P trach and PEG placement, POD#4. 06/23: No acute changes. S/P trach and PEG placement, POD#3. 06/22 Spoke with family about transporationt to [place], family requested initial reports from admission. Patient is given 25mg of IM Thorazine for hiccup like movements. 06/21: S/P Trach and PEG. POD #1 Waiting for placement Transfer out of ICU today Head CT (06/20) - Global ischemia. Diffuse loss of lester white matter differentiation. This is most likely the results of an anoxic event such as cardiac arrest. 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 No evidence of downward herniation or midline shift. Most likely due to cardiac arrest Family still wants full code. Intubated Unresponsive to painful stimuli Palliative care on case (2) Respiratory failure Current Visit: Yes Status: Acute Comment: Cont mechanical ventilation CPAP trial failed 06/27/15 Patient with trach Monitor (3) Cardiac arrest Current Visit: Yes Status: Acute Comment: S/P V-Tach arrest Cont ASA 325mg PO daily Continue amiodarone 200mg PO daily Continue enalapril 2.5mg PO daily Continue Plavix 75 mg po daily Monitor (4) Leukocytosis Current Visit: Yes Status: Acute Comment: Resolved Afebrile s/p treatment with Zosyn blood culture with no growth urine cultures with no growth monitor (5) STEMI (ST elevation myocardial infarction) Current Visit: Yes Status: Acute Comment: Continue Plavix 75mg PO daily Continue Vasotec 2.5mg PO daily Continue ASA 325mg PO daily (6) CAD (coronary artery disease) Current Visit: Yes Status: Acute Comment: s/p cardiac cath showing occluded RCA and LAD, s/p stent Cont ASA 325mg PO daily Cont Vasotec 2.5mg PO daily Cont Plavix 75mg PO daily Statin held secondary to elevated LFTs (7) Bronchopneumonia Current Visit: Yes Status: Acute Comment: s/p treatment with Zosyn Leukocytosis resolved patient afebrile continue to monitor (8) Seizures Current Visit: Yes Status: Acute Comment: Dr. Garcia on case-help appreciated likely secondary to anoxic brain injury Cont Fosphenytoin 100mg IVP Q8 Monitor (9) Prophylactic measure Current Visit: Yes Status: Acute Comment: Pepcid 20 mg PO q12 SCD's Plavix Miralax - Date & Time Date: 06/29/15 Time: 16:43 Attending/Attestation - Attestation I have personally seen and examined this patient.: Yes I have fully participated in the care of the patient.: Yes I have reviewed all pertinent clinical information: Yes
[2015-06-30] MEDS: Fosphenytoin 100 MG in Dextrose 5% In Water 50 ML IV SCH ×3 (04:24→20:00)
--- NOTE | 2015-06-30 06:16 | CP.PCM.PN ---
"<Howard Lopez - Last Filed: 06/30/15 06:11> Subjective - Subjective Subjective: PGY1 Medicine Progress Note Pt. seen and examined at bedside. At the time of exam the patient on trach-to- vent on PRVC (FiO2 40% | PEEP 5 | RR 16 | Vt 450). Pt. not responsive to verbal , tactile, or painful stimuli. Review of Systems - Review of Systems Systems not reviewed;Unavailable: Intubated Objective - Vital Signs/Intake and Output Vital Signs (last 24 hours): Vital Signs - 24 hr 06/29/15 06/29/15 06/29/15 06:25 07:45 10:58 Temperature 98.5 F Pulse Rate 71 65 Respiratory 20 Rate Blood Pressure 111/72 111/72 O2 Sat by Pulse 100 Oximetry 06/29/15 06/29/15 06/30/15 14:00 22:18 05:32 Temperature 97 F L 99.2 F 98.9 F Pulse Rate 65 72 78 Respiratory 20 18 20 Rate Blood Pressure 113/74 104/69 114/71 O2 Sat by Pulse 100 100 100 Oximetry Intake and Output (last 12 hours): Intake & Output 06/29/15 06/29/15 06/30/15 06:59 18:59 06:59 Intake Total 100 850 100 Output Total 300 1800 575 Balance -200 -950 -475 Intake: Intake, IV Amount 100 100 100 Left Forearm 100 100 100 Tube Feeding 450 Other 300 Output: Urine 300 1800 575 Urethral (Yoo) 300 1800 575 Other: Voiding Method Indwelling Catheter Indwelling Catheter # Bowel Movements 0 - Medications Medications: Current Medications Amiodarone HCl (Cordarone) 200 mg PO DAILY [facility] Last Admin: 06/29/15 10:57 Dose: 200 mg Aspirin (Aspirin) 325 mg PO DAILY [facility] Last Admin: 06/29/15 10:57 Dose: 325 mg Clopidogrel Bisulfate (Plavix) 75 mg PO DAILY [facility] Last Admin: 06/29/15 10:57 Dose: 75 mg Enalapril Maleate (Vasotec) 2.5 mg PO DAILY [facility] Last Admin: 06/29/15 10:58 Dose: 2.5 mg Famotidine (Pepcid) 20 mg PO BID [facility] Last Admin: 06/29/15 18:13 Dose: 20 mg Fosphenytoin Sodium 100 mg/ (Dextrose) 52 mls @ 100 mls/hr IV Q8H JOO Last Admin: 06/30/15 04:24 Dose: 100 mls/hr Polyethylene Glycol (Miralax) 17 gm PO DAILY JOO Last Admin: 06/29/15 10:57 Dose: 17 gm Potassium Chloride (Potassium Chloride Oral Soln) 40 meq NG DAILY JOO Last Admin: 06/29/15 10:57 Dose: 40 meq - Labs Labs (last 24 hours): Laboratory Results - last 24 hr 06/29/15 07:23 WBC 8.3 RBC 3.72 L Hgb 11.5 L Hct 34.4 L MCV 92.5 MCH 30.9 MCHC 33.4 RDW 14.5 Plt Count 521 H MPV 7.2 Neut % (Auto) 78.4 H Lymph % (Auto) 12.2 L [place] % (Auto) 8.0 Eos % (Auto) 0.6 Baso % (Auto) 0.8 Neut # 6.5 Lymph # 1.0 [place] # 0.7 Eos # 0.1 Baso # 0.1 Sodium 137 Potassium 4.2 Chloride 103 Carbon Dioxide 27 Anion Gap 11 BUN 23 H Creatinine 0.7 L Est GFR ( Amer) > 60 Est GFR (Non-Af Amer) > 60 Random Glucose 120 H Calcium 8.5 Phosphorus 3.7 Magnesium 2.3 Total Bilirubin 0.3 AST 162 H D ALT 229 H D Alkaline Phosphatase 156 H Total Protein 7.4 Albumin 3.3 L Globulin 4.2 H Albumin/Globulin Ratio 0.8 L - Constitutional Appears: No Acute Distress, Chronically Ill - Head Exam Head Exam: ATRAUMATIC, NORMOCEPHALIC - Respiratory Exam Respiratory Exam: Clear to PA & Lateral, NORMAL BREATHING PATTERN. absent: Rales, Rhonchi, Wheezes - Cardiovascular Exam Cardiovascular Exam: Rubs, +S1, +S2, Systolic Murmur. absent: Gallop - GI/Abdominal Exam GI & Abdominal Exam: Normal Bowel Sounds, Soft. absent: Distended, Firm - Extremities Exam Extremities exam: pedal pulses present. absent: pedal edema - Neurological Exam Neurological exam: Altered - Skin Skin Exam: Dry, Intact, Normal Color, Warm Assessment/Plan (1) Anoxic encephalopathy Current Visit: Yes Status: Acute Comment: 06/30: No clinical change in status. Continue monitoring for responses to stimuli 06/29: No changes Monitor responses to verbal and painful stimuli Patient in persistent vegatative state Condition discussed with with daughter, All study results discussed with daughter 06/28: cerebral flow scan with persistent flow in posterior aspect of brain, no flow in majority of supratentorial brain (please see full report) Patient in persistent vegatative state as per neuro Patient with PEG and Trach Cont fosphenytoin 06/27: Reconsulted Dr. Garcia - help very much appreciated EEG and Cerebral flow scan ordered -f/u resultes s/p PEG and trach Monitor 06/26: No changes, decerebrate posture 06/25: No changes, decorticate posture; goal rate of tube feeding set to 60mls/ hour S/p trach and peg placement 06/24: No acute changes. Gave Thorazine 25mg IM to control hiccups. S/P trach and PEG placement, POD#4. 8: No acute changes. S/P trach and PEG placement, POD#3. 06/22 Spoke with family about transporationt to [place], family requested initial reports from admission. Patient is given 25mg of IM Thorazine for hiccup like movements. 06/21: S/P Trach and PEG. POD #1 Waiting for placement Transfer out of ICU today Head CT (06/20) - Global ischemia. Diffuse loss of lester white matter differentiation. This is most likely the results of an anoxic event such as cardiac arrest. 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 No evidence of downward herniation or midline shift. Most likely due to cardiac arrest Family still wants full code. Intubated Unresponsive to painful stimuli Palliative care on case (2) Respiratory failure Current Visit: Yes Status: Acute Comment: 06/30: [id number] dependent on PRVC (FiO2 40% | PEEP 5 | RR 16 | Vt 450) Cont mechanical ventilation CPAP trial failed 06/27/15 Patient with trach Monitor (3) Cardiac arrest Current Visit: Yes Status: Acute Comment: S/P V-Tach arrest Cont ASA 325mg PO daily Continue amiodarone 200mg PO daily Continue enalapril 2.5mg PO daily Continue Plavix 75 mg po daily Monitor (4) Leukocytosis Current Visit: Yes Status: Acute Comment: Resolved Afebrile s/p treatment with Zosyn blood culture with no growth urine cultures with no growth monitor (5) STEMI (ST elevation myocardial infarction) Current Visit: Yes Status: Acute Comment: Continue Plavix 75mg PO daily Continue Vasotec 2.5mg PO daily Continue ASA 325mg PO daily (6) CAD (coronary artery disease) Current Visit: Yes Status: Acute Comment: s/p cardiac cath showing occluded RCA and LAD, s/p stent Cont ASA 325mg PO daily Cont Vasotec 2.5mg PO daily Cont Plavix 75mg PO daily Statin held secondary to elevated LFTs (7) Bronchopneumonia Current Visit: Yes Status: Acute Comment: s/p treatment with Zosyn Leukocytosis resolved patient afebrile continue to monitor (8) Seizures Current Visit: Yes Status: Acute Comment: Dr. Garcia on case-help appreciated likely secondary to anoxic brain injury Cont Fosphenytoin 100mg IVP Q8 Monitor (9) Prophylactic measure Current Visit: Yes Status: Acute Comment: Pepcid 20 mg PO q12 SCD's Plavix Miralax <Wendi Mercedes R - Last Filed: 06/30/15 17:18> Subjective - Subjective Subjective: Medical Attending Note: Patient seen and examined by me this AM. Agree with resident HPI/Exam/A&P with appropriate additions and changes. All labs reviewed by me. Patient does not respond to verbal or painful stimuli. Patient with spontaneous mouth movements. Unable to obtain ROS from patient. Patient afebrile. Objective - Vital Signs/Intake and Output Vital Signs (last 24 hours): Vital Signs - 24 hr 06/29/15 06/30/15 06/30/15 22:18 05:32 07:35 Temperature 99.2 F 98.9 F Pulse Rate 72 78 78 Respiratory 18 20 Rate Blood Pressure 104/69 114/71 O2 Sat by Pulse 100 100 Oximetry 06/30/15 06/30/15 10:37 13:53 Temperature 98.4 F Pulse Rate 69 Respiratory 20 Rate Blood Pressure 114/71 128/82 O2 Sat by Pulse 94 L Oximetry Intake and Output (last 12 hours): Intake & Output 06/29/15 06/30/15 06/30/15 18:59 06:59 18:59 Intake Total 850 100 Output Total 1800 575 250 Balance -950 -475 -250 Intake: Intake, IV Amount 100 100 Left Forearm 100 100 Tube Feeding 450 Other 300 Output: Urine 1800 575 250 Urethral (Yoo) 1800 575 250 Other: Voiding Method Indwelling Catheter # Bowel Movements 0 - Medications Medications: Current Medications Amiodarone HCl (Cordarone) 200 mg PO DAILY [facility] Last Admin: 06/30/15 10:38 Dose: 200 mg Aspirin (Aspirin) 325 mg PO DAILY [facility] Last Admin: 06/30/15 10:37 Dose: 325 mg Clopidogrel Bisulfate (Plavix) 75 mg PO DAILY [facility] Last Admin: 06/30/15 10:37 Dose: 75 mg Enalapril Maleate (Vasotec) 2.5 mg PO DAILY [facility] Last Admin: 06/30/15 10:37 Dose: 2.5 mg Famotidine (Pepcid) 20 mg PO BID [facility] Last Admin: 06/30/15 10:37 Dose: 20 mg Fosphenytoin Sodium 100 mg/ (Dextrose) 52 mls @ 100 mls/hr IV Q8H [facility] Last Admin: 06/30/15 13:27 Dose: 100 mls/hr Polyethylene Glycol (Miralax) 17 gm PO DAILY [facility] Last Admin: 06/30/15 10:38 Dose: 17 gm Potassium Chloride (Potassium Chloride Oral Soln) 40 meq NG DAILY [facility] Last Admin: 06/30/15 10:37 Dose: 40 meq - Labs Labs (last 24 hours): Laboratory Results - last 24 hr 06/30/15 07:24 WBC 8.5 RBC 3.71 L Hgb 11.4 L Hct 34.4 L MCV 92.9 MCH 30.8 MCHC 33.2 RDW 14.3 Plt Count 510 H MPV 7.2 Neut % (Auto) 78.3 H Lymph % (Auto) 12.1 L [place] % (Auto) 7.9 Eos % (Auto) 0.8 Baso % (Auto) 0.9 Neut # 6.6 Lymph # 1.0 [place] # 0.7 Eos # 0.1 Baso # 0.1 Sodium 138 Potassium 4.2 Chloride 104 Carbon Dioxide 27 Anion Gap 11 BUN 26 H Creatinine 0.7 L Est GFR ( Amer) > 60 Est GFR (Non-Af Amer) > 60 Random Glucose 124 H Calcium 8.5 Phosphorus 4.0 Magnesium 2.3 Total Bilirubin 0.4 AST 177 H ALT 252 H Alkaline Phosphatase 159 H Total Protein 7.4 Albumin 3.3 L Globulin 4.1 H Albumin/Globulin Ratio 0.8 L - Constitutional Appears: No Acute Distress - Head Exam Head Exam: ATRAUMATIC, NORMOCEPHALIC - Eye Exam Eye Exam: absent: Scleral icterus Pupil Exam: Unequal - ENT Exam Additional comments: trach in place with dry blood around it - Respiratory Exam Respiratory Exam: absent: Rales, Wheezes Additional comments: mechanical vent sounds heard throughout - Cardiovascular Exam Cardiovascular Exam: REGULAR RHYTHM, +S1, +S2. absent: Diastolic murmur, Gallop , Rubs, Systolic Murmur - GI/Abdominal Exam GI & Abdominal Exam: Normal Bowel Sounds, Soft. absent: Distended Additional comments: PEG in place - Extremities Exam Extremities exam: pedal pulses present Additional comments: no edema appreciated - Neurological Exam Neurological exam: Altered. absent: Alert Additional comments: patient does not respond to verbal or painful stimuli - Skin Skin Exam: Dry, Warm Assessment/Plan (1) Anoxic encephalopathy Current Visit: Yes Status: Acute Comment: 06/30: No clinical change in status Continue monitoring for any changes 06/29: No changes Monitor responses to verbal and painful stimuli Patient in persistent vegatative state Condition discussed with with daughter, All study results discussed with daughter 06/28: cerebral flow scan with persistent flow in posterior aspect of brain, no flow in majority of supratentorial brain (please see full report) Patient in persistent vegatative state as per neuro Patient with PEG and Trach Cont fosphenytoin 06/27: Reconsulted Dr. Garcia - help very much appreciated EEG and Cerebral flow scan ordered -f/u resultes s/p PEG and trach Monitor 8/4: No changes, decerebrate posture 8/: No changes, decorticate posture; goal rate of tube feeding set to 60mls/ hour S/p trach and peg placement 8/2: No acute changes. Gave Thorazine 25mg IM to control hiccups. S/P trach and PEG placement, POD#4. 8: No acute changes. S/P trach and PEG placement, POD#3. 06/22 Spoke with family about transporationt to [place], family requested initial reports from admission. Patient is given 25mg of IM Thorazine for hiccup like movements. 06/21: S/P Trach and PEG. POD #1 Waiting for placement Transfer out of ICU today Head CT (06/20) - Global ischemia. Diffuse loss of lester white matter differentiation. This is most likely the results of an anoxic event such as cardiac arrest. 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 No evidence of downward herniation or midline shift. Most likely due to cardiac arrest Family still wants full code. Intubated Unresponsive to painful stimuli Palliative care on case (2) Respiratory failure Current Visit: Yes Status: Acute Comment: 06/30: [id number] dependent on PRVC (FiO2 40% | PEEP 5 | RR 16 | Vt 450) Patient with trach Unable to wean off mechanical ventilation Monitor (3) Cardiac arrest Current Visit: Yes Status: Acute Comment: S/P V-Tach arrest Continue Plavix 75mg POdaily Cont amiodarone 200mg PO daily Cont ASA 325mg PO daily Continue enalapril 2.5mg PO daily Monitor (4) Leukocytosis Current Visit: Yes Status: Acute Comment: Resolved Afebrile s/p treatment with Zosyn blood culture with no growth urine cultures with no growth Continue to monitor (5) STEMI (ST elevation myocardial infarction) Current Visit: Yes Status: Acute Comment: Continue Plavix 75mg PO daily Continue ASA 325mg PO daily Continue Vasotec 2.5mg PO daily (6) CAD (coronary artery disease) Current Visit: Yes Status: Acute Comment: s/p cardiac cath with stenting Cont Plavix 75mg PO daily Cont ASA 325mg PO daily Cont Vasotec 2.5mg PO daily Statin held secondary to elevated LFTs (7) Bronchopneumonia Current Visit: Yes Status: Acute Comment: s/p treatment with Zosyn Leukocytosis resolved Patient afebrile Continue to monitor (8) Seizures Current Visit: Yes Status: Acute Comment: Dr. Garcia on case-help appreciated likely secondary to anoxic brain injury Cont Fosphenytoin 100mg IVP Q8 Monitor for seizure activity (9) Prophylactic measure Current Visit: Yes Status: Acute Comment: Pepcid 20 mg PO q12 SCD's Plavix Miralax - Date & Time Date: 06/30/15 Time: 17:16 Attending/Attestation - Attestation I have personally seen and examined this patient.: Yes I have fully participated in the care of the patient.: Yes I have reviewed all pertinent clinical information: Yes"
[2015-06-30 07:43] LABS: BASO # 0.1 K/uL (0.0-0.2); BASO % 0.9 % (0.0-2.0); EOS # 0.1 K/uL (0.0-0.7); EOS % 0.8 % (0.0-4.0); HEMOGLOBIN 11.4 g/dL (12.0-18.0); LYMPH % 12.1 % (20.0-40.0); MEAN CELL VOLUME 92.9 fL (80.0-94.0); MEAN CORPUSCULAR HEMOGLOBIN 30.8 pg (27.0-31.0); MEAN CORPUSCULAR HGB CONC 33.2 g/dL (33.0-37.0); MEAN PLATELET VOLUME 7.2 fL (7.2-11.7); MONO # 0.7 K/uL (0.0-0.8); MONO % 7.9 % (0.0-10.0); NEUT # 6.6 K/uL (1.8-7.0); NEUT % 78.3 % (50.0-75.0); RBC 3.71 Mil/uL (4.40-5.90); RED CELL DISTRIBUTION WIDTH 14.3 % (11.5-14.5); WHITE BLOOD COUNT 8.5 K/uL (4.8-10.8)
[2015-06-30 08:21] LABS: ALBUMIN 3.3 g/dL (3.5-5.0)
[2015-06-30 08:23] LABS: GFR NON-AFRICAN AMERICAN > 60
[2015-06-30 08:24] LABS: ALB/GLOB RATIO 0.8 (1.0-2.1); ALT/SGPT 252 U/L (21-72); AST/SGOT 177 U/L (17-59); BLOOD UREA NITROGEN 26 mg/dL (9-20)
[2015-06-30 08:25] LABS: CALCIUM 8.5 mg/dL (8.4-10.2)
[2015-06-30] MEDS: Potassium Chloride 20 mEq/15 ml LIQ UD NG SCH (10:37)
[2015-06-30] MEDS: POLYETHYLENE GLYCOL 3350 17 GM/Dose PACKET PO SCH (10:38)
[2015-07-01] MEDS: Fosphenytoin 100 MG in Dextrose 5% In Water 50 ML IV SCH ×3 (04:00→20:44)
--- NOTE | 2015-07-01 05:59 | CP.PCM.PN ---
"<Howard Lopez - Last Filed: 07/01/15 07:32> Subjective - Subjective Subjective: PGY1 Medicine Progress Note Pt. seen and examined at bedside. No change in clinical status, continued dependence on [id number]. PRVC (FiO2 40% | PEEP 5 | RR 16 | Vt 450) Unresponsive to verbal/tactile/painful stimuli. Review of Systems - Review of Systems Systems not reviewed;Unavailable: Intubated Objective - Vital Signs/Intake and Output Vital Signs (last 24 hours): Vital Signs - 24 hr 06/30/15 06/30/15 06/30/15 07:35 10:37 13:53 Temperature 98.4 F Pulse Rate 78 69 Respiratory 20 Rate Blood Pressure 114/71 128/82 O2 Sat by Pulse 94 L Oximetry 06/30/15 07/01/15 21:30 05:38 Temperature 97.2 F L 97.0 F L Pulse Rate 72 78 Respiratory 20 20 Rate Blood Pressure 131/84 109/70 O2 Sat by Pulse 99 99 Oximetry Intake and Output (last 12 hours): Intake & Output 06/30/15 06/30/15 07/01/15 06:59 18:59 06:59 Intake Total 100 700 Output Total 575 250 675 Balance -475 -250 25 Intake: Intake, IV Amount 100 Left Forearm 100 Tube Feeding 400 Other 300 Output: Urine 575 250 675 Urethral (Yoo) 575 250 675 Other: Voiding Method Indwelling Catheter - Medications Medications: Current Medications Amiodarone HCl (Cordarone) 200 mg PO DAILY [facility] Last Admin: 06/30/15 10:38 Dose: 200 mg Aspirin (Aspirin) 325 mg PO DAILY [facility] Last Admin: 06/30/15 10:37 Dose: 325 mg Clopidogrel Bisulfate (Plavix) 75 mg PO DAILY [facility] Last Admin: 06/30/15 10:37 Dose: 75 mg Enalapril Maleate (Vasotec) 2.5 mg PO DAILY [facility] Last Admin: 06/30/15 10:37 Dose: 2.5 mg Famotidine (Pepcid) 20 mg PO BID [facility] Last Admin: 06/30/15 17:59 Dose: 20 mg Fosphenytoin Sodium 100 mg/ (Dextrose) 52 mls @ 100 mls/hr IV Q8H [facility] Last Admin: 06/30/15 20:00 Dose: 100 mls/hr Polyethylene Glycol (Miralax) 17 gm PO DAILY [facility] Last Admin: 06/30/15 10:38 Dose: 17 gm Potassium Chloride (Potassium Chloride Oral Soln) 40 meq NG DAILY [facility] Last Admin: 06/30/15 10:37 Dose: 40 meq - Labs Labs (last 24 hours): Laboratory Results - last 24 hr 06/30/15 07:24 WBC 8.5 RBC 3.71 L Hgb 11.4 L Hct 34.4 L MCV 92.9 MCH 30.8 MCHC 33.2 RDW 14.3 Plt Count 510 H MPV 7.2 Neut % (Auto) 78.3 H Lymph % (Auto) 12.1 L [place] % (Auto) 7.9 Eos % (Auto) 0.8 Baso % (Auto) 0.9 Neut # 6.6 Lymph # 1.0 [place] # 0.7 Eos # 0.1 Baso # 0.1 Sodium 138 Potassium 4.2 Chloride 104 Carbon Dioxide 27 Anion Gap 11 BUN 26 H Creatinine 0.7 L Est GFR ( Amer) > 60 Est GFR (Non-Af Amer) > 60 Random Glucose 124 H Calcium 8.5 Phosphorus 4.0 Magnesium 2.3 Total Bilirubin 0.4 AST 177 H ALT 252 H Alkaline Phosphatase 159 H Total Protein 7.4 Albumin 3.3 L Globulin 4.1 H Albumin/Globulin Ratio 0.8 L - Constitutional Appears: No Acute Distress, Chronically Ill - Head Exam Head Exam: ATRAUMATIC, NORMOCEPHALIC - Neck Exam Additional comments: dried blood around trach - Respiratory Exam Respiratory Exam: NORMAL BREATHING PATTERN. absent: Rales, Rhonchi - Cardiovascular Exam Cardiovascular Exam: +S1, +S2. absent: Gallop, Rubs, Systolic Murmur - GI/Abdominal Exam GI & Abdominal Exam: Normal Bowel Sounds, Soft. absent: Distended - Neurological Exam Neurological exam: Altered - Skin Skin Exam: Dry, Normal Color, Warm Assessment/Plan (1) Anoxic encephalopathy Current Visit: Yes Status: Acute Comment: 07/01: clinical status unchanged, continue monitoring 06/30: No clinical change in status Continue monitoring for any changes 06/29: No changes Monitor responses to verbal and painful stimuli Patient in persistent vegatative state Condition discussed with with daughter, All study results discussed with daughter 06/28: cerebral flow scan with persistent flow in posterior aspect of brain, no flow in majority of supratentorial brain (please see full report) Patient in persistent vegatative state as per neuro Patient with PEG and Trach Cont fosphenytoin 06/27: Reconsulted Dr. Garcia - help very much appreciated EEG and Cerebral flow scan ordered -f/u resultes s/p PEG and trach Monitor 06/26: No changes, decerebrate posture 06/25: No changes, decorticate posture; goal rate of tube feeding set to 60mls/ hour S/p trach and peg placement 06/24: No acute changes. Gave Thorazine 25mg IM to control hiccups. S/P trach and PEG placement, POD#4. 8: No acute changes. S/P trach and PEG placement, POD#3. 06/22 Spoke with family about transporationt to [place], family requested initial reports from admission. Patient is given 25mg of IM Thorazine for hiccup like movements. 06/21: S/P Trach and PEG. POD #1 Waiting for placement Transfer out of ICU today Head CT (06/20) - Global ischemia. Diffuse loss of lester white matter differentiation. This is most likely the results of an anoxic event such as cardiac arrest. 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 No evidence of downward herniation or midline shift. Most likely due to cardiac arrest Family still wants full code. Intubated Unresponsive to painful stimuli Palliative care on case (2) Respiratory failure Current Visit: Yes Status: Acute Comment: 07/01: [id number] depedence with no change in vent settings 06/30: [id number] dependent on PRVC (FiO2 40% | PEEP 5 | RR 16 | Vt 450) Patient with trach Unable to wean off mechanical ventilation Monitor (3) Cardiac arrest Current Visit: Yes Status: Acute Comment: S/P V-Tach arrest Continue Plavix 75mg POdaily Cont amiodarone 200mg PO daily Cont ASA 325mg PO daily Continue enalapril 2.5mg PO daily Monitor (4) Leukocytosis Current Visit: Yes Status: Acute Comment: Resolved Afebrile s/p treatment with Zosyn blood culture with no growth urine cultures with no growth Continue to monitor (5) STEMI (ST elevation myocardial infarction) Current Visit: Yes Status: Acute Comment: Continue Plavix 75mg PO daily Continue ASA 325mg PO daily Continue Vasotec 2.5mg PO daily (6) CAD (coronary artery disease) Current Visit: Yes Status: Acute Comment: s/p cardiac cath with stenting Cont Plavix 75mg PO daily Cont ASA 325mg PO daily Cont Vasotec 2.5mg PO daily Statin held secondary to elevated LFTs (7) Bronchopneumonia Current Visit: Yes Status: Acute Comment: s/p treatment with Zosyn Leukocytosis resolved Patient afebrile Continue to monitor (8) Seizures Current Visit: Yes Status: Acute Comment: Dr. Garcia on case-help appreciated likely secondary to anoxic brain injury Cont Fosphenytoin 100mg IVP Q8 Monitor for seizure activity (9) Prophylactic measure Current Visit: Yes Status: Acute Comment: Pepcid 20 mg PO q12 SCD's Plavix Miralax <Wendi Mercedes R - Last Filed: 07/01/15 16:52> Subjective - Subjective Subjective: Medical Attending Note: Patient seen and examined by me this AM. Agree with resident HPI/Exam/A&P with appropriate additions and changes. All new labs reviewed by me. Patient with trach. Unresponsive to verbal and painful stimuli. Spontaneous movements of mouth. Patient afebrile. Unable to obtain ROS from patient. Objective - Vital Signs/Intake and Output Vital Signs (last 24 hours): Vital Signs - 24 hr 06/30/15 07/01/15 07/01/15 21:30 05:38 07:40 Temperature 97.2 F L 97.0 F L Pulse Rate 72 78 78 Respiratory 20 20 Rate Blood Pressure 131/84 109/70 O2 Sat by Pulse 99 99 Oximetry 07/01/15 07/01/15 10:57 14:51 Temperature 97.6 F Pulse Rate 69 Respiratory 20 Rate Blood Pressure 109/70 111/78 O2 Sat by Pulse 100 Oximetry Intake and Output (last 12 hours): Intake & Output 06/30/15 07/01/15 07/01/15 18:59 06:59 18:59 Intake Total 700 Output Total 250 675 300 Balance -250 25 -300 Intake: Tube Feeding 400 Other 300 Output: Urine 250 675 300 Urethral (Yoo) 250 675 300 - Medications Medications: Current Medications Amiodarone HCl (Cordarone) 200 mg PO DAILY [facility] Last Admin: 07/01/15 10:58 Dose: 200 mg Aspirin (Aspirin) 325 mg PO DAILY [facility] Last Admin: 07/01/15 10:57 Dose: 325 mg Clopidogrel Bisulfate (Plavix) 75 mg PO DAILY [facility] Last Admin: 07/01/15 10:57 Dose: 75 mg Enalapril Maleate (Vasotec) 2.5 mg PO DAILY [facility] Last Admin: 07/01/15 10:57 Dose: 2.5 mg Famotidine (Pepcid) 20 mg PO BID [facility] Last Admin: 07/01/15 10:57 Dose: 20 mg Fosphenytoin Sodium 100 mg/ (Dextrose) 52 mls @ 100 mls/hr IV Q8H [facility] Last Admin: 07/01/15 11:00 Dose: 100 mls/hr Polyethylene Glycol (Miralax) 17 gm PO DAILY [facility] Last Admin: 07/01/15 10:58 Dose: 17 gm Potassium Chloride (Potassium Chloride Oral Soln) 40 meq NG DAILY [facility] Last Admin: 07/01/15 10:57 Dose: 40 meq - Labs Labs (last 24 hours): Laboratory Results - last 24 hr 07/01/15 07:25 WBC 10.6 RBC 3.65 L Hgb 11.4 L Hct 33.8 L MCV 92.4 MCH 31.1 H MCHC 33.7 RDW 14.3 Plt Count 459 H MPV 7.2 Neut % (Auto) 81.0 H Lymph % (Auto) 10.2 L [place] % (Auto) 7.2 Eos % (Auto) 0.9 Baso % (Auto) 0.7 Neut # 8.6 H Lymph # 1.1 [place] # 0.8 Eos # 0.1 Baso # 0.1 Sodium 137 Potassium 4.1 Chloride 104 Carbon Dioxide 27 Anion Gap 11 BUN 26 H Creatinine 0.7 L Est GFR ( Amer) > 60 Est GFR (Non-Af Amer) > 60 Random Glucose 148 H Calcium 8.4 Phosphorus 4.0 Magnesium 2.2 Total Bilirubin 0.3 AST 150 H ALT 256 H Alkaline Phosphatase 162 H Total Protein 7.3 Albumin 3.3 L Globulin 4.1 H Albumin/Globulin Ratio 0.8 L - Constitutional Appears: No Acute Distress - Head Exam Head Exam: ATRAUMATIC, NORMOCEPHALIC - Eye Exam Eye Exam: absent: Scleral icterus Pupil Exam: Unequal - ENT Exam ENT Exam: Mucous Membranes Moist - Neck Exam Additional comments: trach in place - Respiratory Exam Respiratory Exam: absent: Rales, Wheezes Additional comments: mechanical vent sounds heard throughout - Cardiovascular Exam Cardiovascular Exam: REGULAR RHYTHM, +S1, +S2. absent: Diastolic murmur, Gallop , Rubs, Systolic Murmur - GI/Abdominal Exam GI & Abdominal Exam: Normal Bowel Sounds, Soft. absent: Distended Additional comments: PEG in place - Extremities Exam Extremities exam: pedal pulses present Additional comments: no edema appreciated b/l SCDS in place - Neurological Exam Neurological exam: Altered. absent: Alert Additional comments: patient unresponsive to painful and verbal stimuli spontaneous movements of mouth - Skin Skin Exam: Dry, Warm Assessment/Plan (1) Anoxic encephalopathy Current Visit: Yes Status: Acute Comment: 07/01: clinical status unchanged unresponsive to painful and verbal stimuli monitor for changes 06/30: No clinical change in status Continue monitoring for any changes 06/29: No changes Monitor responses to verbal and painful stimuli Patient in persistent vegatative state Condition discussed with with daughter, All study results discussed with daughter 06/28: cerebral flow scan with persistent flow in posterior aspect of brain, no flow in majority of supratentorial brain (please see full report) Patient in persistent vegatative state as per neuro Patient with PEG and Trach Cont fosphenytoin 06/27: Reconsulted Dr. Garcia - help very much appreciated EEG and Cerebral flow scan ordered -f/u resultes s/p PEG and trach Monitor 8/4: No changes, decerebrate posture 8/3: No changes, decorticate posture; goal rate of tube feeding set to 60mls/ hour S/p trach and peg placement 8/2: No acute changes. Gave Thorazine 25mg IM to control hiccups. S/P trach and PEG placement, POD#4. 8: No acute changes. S/P trach and PEG placement, POD#3. 06/22 Spoke with family about transporationt to [place], family requested initial reports from admission. Patient is given 25mg of IM Thorazine for hiccup like movements. 06/21: S/P Trach and PEG. POD #1 Waiting for placement Transfer out of ICU today Head CT (06/20) - Global ischemia. Diffuse loss of lester white matter differentiation. This is most likely the results of an anoxic event such as cardiac arrest. 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 No evidence of downward herniation or midline shift. Most likely due to cardiac arrest Family still wants full code. Intubated Unresponsive to painful stimuli Palliative care on case (2) Respiratory failure Current Visit: Yes Status: Acute Comment: 07/01: [id number] depedence with no change in vent settings unable to wean monitor 06/30: [id number] dependent on PRVC (FiO2 40% | PEEP 5 | RR 16 | Vt 450) Patient with trach Unable to wean off mechanical ventilation Monitor (3) Cardiac arrest Current Visit: Yes Status: Acute Comment: S/P V-Tach arrest Continue Plavix 75mg POdaily Continue amiodarone 200mg PO daily Continue ASA 325mg PO daily Continue enalapril 2.5mg PO daily Monitor (4) Leukocytosis Current Visit: Yes Status: Acute Comment: Resolved Afebrile s/p treatment with Zosyn blood culture with no growth urine cultures with no growth Monitor (5) STEMI (ST elevation myocardial infarction) Current Visit: Yes Status: Acute Comment: Continue Plavix 75mg PO daily Continue ASA 325mg PO daily Continue Vasotec 2.5mg PO daily Monitor (6) CAD (coronary artery disease) Current Visit: Yes Status: Acute Comment: s/p cardiac cath with stenting Continue Plavix 75mg PO daily Continue Vasotec 2.5 mg PO daily Continue ASA 325mg PO daily Statin held secondary to elevated LFTs (7) Bronchopneumonia Current Visit: Yes Status: Acute Comment: s/p treatment with Zosyn leukocytosis resolved patient afebrile monitor (8) Seizures Current Visit: Yes Status: Acute Comment: Dr. Garcia on case-help appreciated likely secondary to anoxic brain injury Cont Fosphenytoin 100mg IVP Q8 Continue to monitor for seizure activity (9) Prophylactic measure Current Visit: Yes Status: Acute Comment: Pepcid 20 mg PO q12 SCD's Plavix Miralax - Date & Time Date: 07/01/15 Time: 16:48 Attending/Attestation - Attestation I have personally seen and examined this patient.: Yes I have fully participated in the care of the patient.: Yes I have reviewed all pertinent clinical information: Yes"
[2015-07-01 07:39] LABS: BASO # 0.1 K/uL (0.0-0.2); BASO % 0.7 % (0.0-2.0); EOS # 0.1 K/uL (0.0-0.7); EOS % 0.9 % (0.0-4.0); HEMOGLOBIN 11.4 g/dL (12.0-18.0); LYMPH # 1.1 K/uL (1.0-4.3); LYMPH % 10.2 % (20.0-40.0); MEAN CELL VOLUME 92.4 fL (80.0-94.0); MEAN CORPUSCULAR HEMOGLOBIN 31.1 pg (27.0-31.0); MEAN CORPUSCULAR HGB CONC 33.7 g/dL (33.0-37.0); MEAN PLATELET VOLUME 7.2 fL (7.2-11.7); MONO # 0.8 K/uL (0.0-0.8); MONO % 7.2 % (0.0-10.0); NEUT # 8.6 K/uL (1.8-7.0); RBC 3.65 Mil/uL (4.40-5.90); RED CELL DISTRIBUTION WIDTH 14.3 % (11.5-14.5); WHITE BLOOD COUNT 10.6 K/uL (4.8-10.8)
[2015-07-01 08:00] LABS: ALBUMIN 3.3 g/dL (3.5-5.0)
[2015-07-01 08:03] LABS: ALB/GLOB RATIO 0.8 (1.0-2.1); AST/SGOT 150 U/L (17-59); GFR NON-AFRICAN AMERICAN > 60
[2015-07-01 08:04] LABS: ALT/SGPT 256 U/L (21-72); BLOOD UREA NITROGEN 26 mg/dL (9-20); CALCIUM 8.4 mg/dL (8.4-10.2)
[2015-07-01] MEDS: Potassium Chloride 20 mEq/15 ml LIQ UD NG SCH (10:57)
[2015-07-01] MEDS: POLYETHYLENE GLYCOL 3350 17 GM/Dose PACKET PO SCH (10:58)
[2015-07-02] MEDS: Fosphenytoin 100 MG in Dextrose 5% In Water 50 ML IV SCH ×3 (05:06→20:21)
[2015-07-02 07:47] LABS: BASO # 0.1 K/uL (0.0-0.2); BASO % 0.8 % (0.0-2.0); EOS # 0.2 K/uL (0.0-0.7); EOS % 1.5 % (0.0-4.0); HEMOGLOBIN 11.2 g/dL (12.0-18.0); LYMPH # 1.1 K/uL (1.0-4.3); LYMPH % 11.1 % (20.0-40.0); MEAN CELL VOLUME 92.5 fL (80.0-94.0); MEAN CORPUSCULAR HEMOGLOBIN 30.7 pg (27.0-31.0); MEAN CORPUSCULAR HGB CONC 33.2 g/dL (33.0-37.0); MEAN PLATELET VOLUME 7.3 fL (7.2-11.7); MONO # 0.7 K/uL (0.0-0.8); MONO % 7.3 % (0.0-10.0); NEUT # 7.7 K/uL (1.8-7.0); NEUT % 79.3 % (50.0-75.0); RBC 3.64 Mil/uL (4.40-5.90); RED CELL DISTRIBUTION WIDTH 14.2 % (11.5-14.5); WHITE BLOOD COUNT 9.7 K/uL (4.8-10.8)
[2015-07-02 08:03] LABS: ALBUMIN 3.3 g/dL (3.5-5.0)
[2015-07-02 08:06] LABS: ALB/GLOB RATIO 0.8 (1.0-2.1); AST/SGOT 146 U/L (17-59); BLOOD UREA NITROGEN 26 mg/dL (9-20); GFR NON-AFRICAN AMERICAN > 60
[2015-07-02 08:07] LABS: ALT/SGPT 245 U/L (21-72); CALCIUM 8.6 mg/dL (8.4-10.2)
--- NOTE | 2015-07-02 09:43 | CP.PCM.PN ---
"<Judith Baires H - Last Filed: 07/02/15 11:25> Subjective - Subjective Subjective: Patient seen and examined at bedside by me this AM. Patient unresponsive to verbal stimuli after anoxic brain injury post [place]. Patient moved trunk and arms in response to sternal rub after 10 seconds. S/P trach and PEG placement. Continuous mechanical ventilation. Patient opened and closed mouth multiple times today. Patient is in decerebrate posture. Family wants all measures taken to keep patient alive. Awaiting placement. Review of Systems - Review of Systems Systems not reviewed;Unavailable: Altered Mental Status Objective - Vital Signs/Intake and Output Vital Signs (last 24 hours): Vital Signs - 24 hr 07/01/15 07/01/15 07/01/15 10:57 14:51 21:00 Temperature 97.6 F 97.1 F L Pulse Rate 69 71 Respiratory 20 16 Rate Blood Pressure 109/70 111/78 97/69 L O2 Sat by Pulse 100 100 Oximetry 07/02/15 06:00 Temperature 97.2 F L Pulse Rate 71 Respiratory 19 Rate Blood Pressure 118/70 O2 Sat by Pulse 100 Oximetry Intake and Output (last 12 hours): Intake & Output 07/01/15 07/02/15 07/02/15 18:59 06:59 18:59 Intake Total 1250 Output Total 300 775 Balance -300 475 Weight 140 lb 5 oz Intake: Intake, IV Amount 50 Left Forearm 50 Tube Feeding 940 Other 260 Output: Urine 300 775 Urethral (Yoo) 300 775 Other: # Bowel Movements 1 - Medications Medications: Current Medications Amiodarone HCl (Cordarone) 200 mg PO DAILY [facility] Last Admin: 07/01/15 10:58 Dose: 200 mg Aspirin (Aspirin) 325 mg PO DAILY [facility] Last Admin: 07/01/15 10:57 Dose: 325 mg Clopidogrel Bisulfate (Plavix) 75 mg PO DAILY [facility] Last Admin: 07/01/15 10:57 Dose: 75 mg Docusate Sodium (Colace Liquid) 100 mg PEG BID [facility] Enalapril Maleate (Vasotec) 2.5 mg PO DAILY [facility] Last Admin: 07/01/15 10:57 Dose: 2.5 mg Famotidine (Pepcid) 20 mg PO BID [facility] Last Admin: 07/01/15 17:08 Dose: 20 mg Fosphenytoin Sodium 100 mg/ (Dextrose) 52 mls @ 100 mls/hr IV Q8H [facility] Last Admin: 07/02/15 05:06 Dose: 100 mls/hr Polyethylene Glycol (Miralax) 17 gm PO DAILY [facility] Last Admin: 07/01/15 10:58 Dose: 17 gm Potassium Chloride (Potassium Chloride Oral Soln) 40 meq NG DAILY [facility] Last Admin: 07/01/15 10:57 Dose: 40 meq - Labs Labs (last 24 hours): Laboratory Results - last 24 hr 07/02/15 07:14 WBC 9.7 RBC 3.64 L Hgb 11.2 L Hct 33.7 L MCV 92.5 MCH 30.7 MCHC 33.2 RDW 14.2 Plt Count 421 H MPV 7.3 Neut % (Auto) 79.3 H Lymph % (Auto) 11.1 L [place] % (Auto) 7.3 Eos % (Auto) 1.5 Baso % (Auto) 0.8 Neut # 7.7 H Lymph # 1.1 [place] # 0.7 Eos # 0.2 Baso # 0.1 Sodium 137 Potassium 4.2 Chloride 103 Carbon Dioxide 27 Anion Gap 11 BUN 26 H Creatinine 0.6 L Est GFR ( Amer) > 60 Est GFR (Non-Af Amer) > 60 Random Glucose 120 H Calcium 8.6 Phosphorus 3.8 Magnesium 2.1 Total Bilirubin 0.4 AST 146 H ALT 245 H Alkaline Phosphatase 153 H Total Protein 7.5 Albumin 3.3 L Globulin 4.2 H Albumin/Globulin Ratio 0.8 L - Constitutional Appears: Chronically Ill - Head Exam Head Exam: NORMAL INSPECTION Additional comments: head laceration healed, 1.5cm scar - Eye Exam Eye Exam: PERRL - ENT Exam ENT Exam: Mucous Membranes Moist - Respiratory Exam Respiratory Exam: Clear to PA & Lateral, NORMAL BREATHING PATTERN, UNREMARKABLE Additional comments: trach in place, gauze underneath, no bleeding or drainage - Cardiovascular Exam Cardiovascular Exam: REGULAR RHYTHM, +S1, +S2 - GI/Abdominal Exam GI & Abdominal Exam: Normal Bowel Sounds, Soft. absent: Distended, Firm Additional comments: peg in place, no drainage or bleeding at site, gauze clean - Extremities Exam Extremities exam: normal capillary refill, pedal pulses present. absent: pedal edema - Neurological Exam Neurological exam: Altered - Skin Skin Exam: Normal Color Assessment/Plan (1) Transaminitis Current Visit: Yes Status: Acute Comment: chronically high LFTs Today: AST 146, ALT 245, ALP 153 Monitor CMP (2) Respiratory failure Current Visit: Yes Status: Acute Comment: 07/02:[id number] depedence with no change in vent settings Dr. Salgado - Pulmonology - help very much appreciated 07/01: [id number] depedence with no change in vent settings unable to wean monitor 06/30: [id number] dependent on PRVC (FiO2 40% | PEEP 5 | RR 16 | Vt 450) Patient with trach Unable to wean off mechanical ventilation Monitor (3) Anoxic encephalopathy Current Visit: Yes Status: Acute Comment: 07/02: clinical status unchanged monitor for changes 07/01: clinical status unchanged unresponsive to painful and verbal stimuli monitor for changes 06/30: No clinical change in status Continue monitoring for any changes 06/29: No changes Monitor responses to verbal and painful stimuli Patient in persistent vegatative state Condition discussed with with daughter, All study results discussed with daughter 06/28: cerebral flow scan with persistent flow in posterior aspect of brain, no flow in majority of supratentorial brain (please see full report) Patient in persistent vegatative state as per neuro Patient with PEG and Trach Cont fosphenytoin 06/27: Reconsulted Dr. Garcia - help very much appreciated EEG and Cerebral flow scan ordered -f/u resultes s/p PEG and trach Monitor 8/4: No changes, decerebrate posture 8/: No changes, decorticate posture; goal rate of tube feeding set to 60mls/ hour S/p trach and peg placement 8/2: No acute changes. Gave Thorazine 25mg IM to control hiccups. S/P trach and PEG placement, POD#4. 06/23: No acute changes. S/P trach and PEG placement, POD#3. 06/22 Spoke with family about transporationt to [place], family requested initial reports from admission. Patient is given 25mg of IM Thorazine for hiccup like movements. 06/21: S/P Trach and PEG. POD #1 Waiting for placement Transfer out of ICU today Head CT (06/20) - Global ischemia. Diffuse loss of lester white matter differentiation. This is most likely the results of an anoxic event such as cardiac arrest. 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 No evidence of downward herniation or midline shift. Most likely due to cardiac arrest Family still wants full code. Intubated Unresponsive to painful stimuli Palliative care on case (4) CAD (coronary artery disease) Current Visit: Yes Status: Acute Comment: s/p cardiac cath with stenting Continue Plavix 75mg PO daily Continue Vasotec 2.5 mg PO daily Continue ASA 325mg PO daily Statin held secondary to elevated LFTs (5) STEMI (ST elevation myocardial infarction) Current Visit: Yes Status: Acute Comment: Continue Plavix 75mg PO daily Continue ASA 325mg PO daily Continue Vasotec 2.5mg PO daily Monitor (6) Seizures Current Visit: Yes Status: Acute Comment: Dr. Garcia on case-help appreciated likely secondary to anoxic brain injury Cont Fosphenytoin 100mg IVP Q8 Continue to monitor for seizure activity (7) Prophylactic measure Current Visit: Yes Status: Acute Comment: Pepcid 20 mg PO q12 SCD's Plavix Miralax <Amandeep Chavis H - Last Filed: 07/02/15 11:53> Objective - Vital Signs/Intake and Output Vital Signs (last 24 hours): Vital Signs - 24 hr 07/01/15 07/01/15 07/02/15 14:51 21:00 06:00 Temperature 97.6 F 97.1 F L 97.2 F L Pulse Rate 69 71 71 Respiratory 20 16 19 Rate Blood Pressure 111/78 97/69 L 118/70 O2 Sat by Pulse 100 100 100 Oximetry 07/02/15 10:40 Temperature Pulse Rate Respiratory Rate Blood Pressure 134/74 O2 Sat by Pulse Oximetry Intake and Output (last 12 hours): Intake & Output 07/01/15 07/02/15 07/02/15 18:59 06:59 18:59 Intake Total 1250 Output Total 300 775 Balance -300 475 Weight 140 lb 5 oz Intake: Intake, IV Amount 50 Left Forearm 50 Tube Feeding 940 Other 260 Output: Urine 300 775 Urethral (Yoo) 300 775 Other: # Bowel Movements 1 - Medications Medications: Current Medications Amiodarone HCl (Cordarone) 200 mg PO DAILY [facility] Last Admin: 07/02/15 10:40 Dose: 200 mg Aspirin (Aspirin) 325 mg PO DAILY [facility] Last Admin: 07/02/15 10:40 Dose: 325 mg Clopidogrel Bisulfate (Plavix) 75 mg PO DAILY [facility] Last Admin: 07/02/15 10:40 Dose: 75 mg Docusate Sodium (Colace Liquid) 100 mg PEG BID [facility] Last Admin: 07/02/15 10:40 Dose: 100 mg Enalapril Maleate (Vasotec) 2.5 mg PO DAILY [facility] Last Admin: 07/02/15 10:40 Dose: 2.5 mg Famotidine (Pepcid) 20 mg PO BID [facility] Last Admin: 07/02/15 10:40 Dose: 20 mg Fosphenytoin Sodium 100 mg/ (Dextrose) 52 mls @ 100 mls/hr IV Q8H [facility] Last Admin: 07/02/15 05:06 Dose: 100 mls/hr Polyethylene Glycol (Miralax) 17 gm PO DAILY [facility] Last Admin: 07/02/15 10:40 Dose: 17 gm Potassium Chloride (Potassium Chloride Oral Soln) 40 meq NG DAILY [facility] Last Admin: 07/02/15 10:39 Dose: 40 meq - Labs Labs (last 24 hours): Laboratory Results - last 24 hr 07/02/15 07:14 WBC 9.7 RBC 3.64 L Hgb 11.2 L Hct 33.7 L MCV 92.5 MCH 30.7 MCHC 33.2 RDW 14.2 Plt Count 421 H MPV 7.3 Neut % (Auto) 79.3 H Lymph % (Auto) 11.1 L [place] % (Auto) 7.3 Eos % (Auto) 1.5 Baso % (Auto) 0.8 Neut # 7.7 H Lymph # 1.1 [place] # 0.7 Eos # 0.2 Baso # 0.1 Sodium 137 Potassium 4.2 Chloride 103 Carbon Dioxide 27 Anion Gap 11 BUN 26 H Creatinine 0.6 L Est GFR ( Amer) > 60 Est GFR (Non-Af Amer) > 60 Random Glucose 120 H Calcium 8.6 Phosphorus 3.8 Magnesium 2.1 Total Bilirubin 0.4 AST 146 H ALT 245 H Alkaline Phosphatase 153 H Total Protein 7.5 Albumin 3.3 L Globulin 4.2 H Albumin/Globulin Ratio 0.8 L Assessment/Plan (1) Respiratory failure Current Visit: Yes Status: Acute Comment: 07/02:[id number]-mrvz depedence with no change in vent settings Dr. Salgado - Pulmonology - help very much appreciated 07/01: [id number]-eb-[id number] depedence with no change in vent settings unable to wean monitor 06/30: [id number] dependent on PRVC (FiO2 40% | PEEP 5 | RR 16 | Vt 450) Patient with trach Unable to wean off mechanical ventilation Monitor (2) Anoxic encephalopathy Current Visit: Yes Status: Acute Comment: 07/02: clinical status unchanged monitor for changes 07/01: clinical status unchanged unresponsive to painful and verbal stimuli monitor for changes 06/30: No clinical change in status Continue monitoring for any changes 06/29: No changes Monitor responses to verbal and painful stimuli Patient in persistent vegatative state Condition discussed with with daughter, All study results discussed with daughter 06/28: cerebral flow scan with persistent flow in posterior aspect of brain, no flow in majority of supratentorial brain (please see full report) Patient in persistent vegatative state as per neuro Patient with PEG and Trach Cont fosphenytoin 06/27: Reconsulted Dr. Garcia - help very much appreciated EEG and Cerebral flow scan ordered -f/u resultes s/p PEG and trach Monitor 06/26: No changes, decerebrate posture 06/25: No changes, decorticate posture; goal rate of tube feeding set to 60mls/ hour S/p trach and peg placement 8/: No acute changes. Gave Thorazine 25mg IM to control hiccups. S/P trach and PEG placement, POD#4. 06/23: No acute changes. S/P trach and PEG placement, POD#3. 06/22 Spoke with family about transporationt to [place], family requested initial reports from admission. Patient is given 25mg of IM Thorazine for hiccup like movements. 06/21: S/P Trach and PEG. POD #1 Waiting for placement Transfer out of ICU today Head CT (06/20) - Global ischemia. Diffuse loss of lester white matter differentiation. This is most likely the results of an anoxic event such as cardiac arrest. 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 No evidence of downward herniation or midline shift. Most likely due to cardiac arrest Family still wants full code. Intubated Unresponsive to painful stimuli Palliative care on case (3) STEMI (ST elevation myocardial infarction) Current Visit: Yes Status: Acute Comment: Continue Plavix 75mg PO daily Continue ASA 325mg PO daily Continue Vasotec 2.5mg PO daily Monitor (4) Cardiac arrest Current Visit: Yes Status: Acute Comment: S/P V-Tach arrest Continue Plavix 75mg POdaily Continue amiodarone 200mg PO daily Continue ASA 325mg PO daily Continue enalapril 2.5mg PO daily Monitor (5) Seizures Current Visit: Yes Status: Acute Comment: Dr. Garcia on case-help appreciated likely secondary to anoxic brain injury Cont Fosphenytoin 100mg IVP Q8 Continue to monitor for seizure activity (6) Prophylactic measure Current Visit: Yes Status: Acute Comment: Pepcid 20 mg PO q12 SCD's Plavix Miralax Attending/Attestation - Attestation I have personally seen and examined this patient.: Yes I have fully participated in the care of the patient.: Yes I have reviewed all pertinent clinical information: Yes Notes (Text): 07/02/15 11:52 Medical Attending: Situation is unchanged from before. Agree with the above. Patient was seen and examined by me. Amandeep Chavis"
[2015-07-02] MEDS: Potassium Chloride 20 mEq/15 ml LIQ UD NG SCH (10:39)
[2015-07-02] MEDS: POLYETHYLENE GLYCOL 3350 17 GM/Dose PACKET PO SCH (10:40)
--- NOTE | 2015-07-02 12:29 | PN ---
DATE: 07/02/2015 VITAL SIGNS: 118/70. Pulse is 71, respiratory rate 19, temperature 97.2, on tracheostomy and PEG insertion. The patient is obtunded. Eyes are closed. Pupils are sluggishly reactive to light, and no ocular movements noted. Corneal reflexes are trace. Spontaneous lid movement noted and arm movement noted. Deep tendon reflexes are absent. Plantars are mute. CONCLUSION: Anoxic encephalopathy, attained irreversible [employer] insult and the patchy brainstem function. The patient could not able to get meaningful life in near future. The patient's presentation is persistent with rigidity stage, totally dependent on a vent at present. WORKUP: Cerebral nuclear study shows absent supratentorial region just maintaining of the posterior circulation. EEG showed burst suppression with occasional frontal activities noted. The patient's current EEG is not supporting bilateral electrocerebral silence. The patient should be treated symptomatically, and continue the supportive care at present. Dennis Garcia MD cc: [id number] TT: 07/02/2015 09:47:39 jn MTDD
[2015-07-03] MEDS: Fosphenytoin 100 MG in Dextrose 5% In Water 50 ML IV SCH ×3 (03:06→19:44)
--- NOTE | 2015-07-03 07:42 | CP.PCM.PN ---
"<Judith Baires H - Last Filed: 07/03/15 09:30> Subjective - Subjective Subjective: Patient seen and examined at bedside by me this AM. Patient unresponsive to verbal and painful stimuli after anoxic brain injury post [place]. Patient moved trunk and arms while yawning. S/P trach and PEG placement. Continuous mechanical ventilation. Patient is in decerebrate posture. Family wants all measures taken to keep patient alive. Awaiting placement. Review of Systems - Review of Systems Systems not reviewed;Unavailable: Altered Mental Status Objective - Vital Signs/Intake and Output Vital Signs (last 24 hours): Vital Signs - 24 hr 07/02/15 07/02/15 07/02/15 10:40 14:00 15:31 Temperature 97.3 F L Pulse Rate 70 70 Respiratory 20 Rate Blood Pressure 134/74 114/78 O2 Sat by Pulse 100 Oximetry 07/02/15 07/03/15 21:05 05:41 Temperature 97.9 F 97.0 F L Pulse Rate 72 99 H Respiratory 16 20 Rate Blood Pressure 97/64 L 115/73 O2 Sat by Pulse 100 100 Oximetry Intake and Output (last 12 hours): Intake & Output 07/02/15 07/03/15 07/03/15 18:59 06:59 18:59 Intake Total 580 Output Total 175 1350 Balance -175 -770 Weight 140 lb 5 oz Intake: Intake, IV Amount 100 Right Forearm 100 Tube Feeding 480 Output: Urine 175 1350 Urethral (Baker) 175 1350 Other: Voiding Method Indwelling Catheter Indwelling Catheter # Bowel Movements 0 - Medications Medications: Current Medications Amiodarone HCl (Cordarone) 200 mg PO DAILY [facility] Last Admin: 07/02/15 10:40 Dose: 200 mg Aspirin (Aspirin) 325 mg PO DAILY [facility] Last Admin: 07/02/15 10:40 Dose: 325 mg Clopidogrel Bisulfate (Plavix) 75 mg PO DAILY [facility] Last Admin: 07/02/15 10:40 Dose: 75 mg Docusate Sodium (Colace Liquid) 100 mg PEG BID [facility] Last Admin: 07/02/15 10:40 Dose: 100 mg Enalapril Maleate (Vasotec) 2.5 mg PO DAILY [facility] Last Admin: 07/02/15 10:40 Dose: 2.5 mg Famotidine (Pepcid) 20 mg PO BID [facility] Last Admin: 07/02/15 10:40 Dose: 20 mg Fosphenytoin Sodium 100 mg/ (Dextrose) 52 mls @ 100 mls/hr IV Q8H [facility] Last Admin: 07/03/15 03:06 Dose: 100 mls/hr Polyethylene Glycol (Miralax) 17 gm PO DAILY [facility] Last Admin: 07/02/15 10:40 Dose: 17 gm Potassium Chloride (Potassium Chloride Oral Soln) 40 meq NG DAILY [facility] Last Admin: 07/02/15 10:39 Dose: 40 meq - Labs Labs (last 24 hours): Laboratory Results - last 24 hr 07/02/15 07:14 WBC 9.7 RBC 3.64 L Hgb 11.2 L Hct 33.7 L MCV 92.5 MCH 30.7 MCHC 33.2 RDW 14.2 Plt Count 421 H MPV 7.3 Neut % (Auto) 79.3 H Lymph % (Auto) 11.1 L Mitchell % (Auto) 7.3 Eos % (Auto) 1.5 Baso % (Auto) 0.8 Neut # 7.7 H Lymph # 1.1 Mitchell # 0.7 Eos # 0.2 Baso # 0.1 Sodium 137 Potassium 4.2 Chloride 103 Carbon Dioxide 27 Anion Gap 11 BUN 26 H Creatinine 0.6 L Est GFR ( Amer) > 60 Est GFR (Non-Af Amer) > 60 Random Glucose 120 H Calcium 8.6 Phosphorus 3.8 Magnesium 2.1 Total Bilirubin 0.4 AST 146 H ALT 245 H Alkaline Phosphatase 153 H Total Protein 7.5 Albumin 3.3 L Globulin 4.2 H Albumin/Globulin Ratio 0.8 L - Constitutional Appears: Chronically Ill - Head Exam Head Exam: NORMAL INSPECTION Additional comments: head laceration healed, scar above left eyebrow - Eye Exam Eye Exam: PERRL - ENT Exam ENT Exam: Mucous Membranes Moist - Respiratory Exam Respiratory Exam: Clear to PA & Lateral, NORMAL BREATHING PATTERN, UNREMARKABLE Additional comments: mechanical ventilation FiO2 [address] Bloody drainage on dressing - Cardiovascular Exam Cardiovascular Exam: REGULAR RHYTHM, +S1, +S2 - GI/Abdominal Exam GI & Abdominal Exam: Normal Bowel Sounds, Soft. absent: Distended, Firm, Organomegaly, Rigid Additional comments: peg in place, no blood or drainage - Exam Exam: NORMAL INSPECTION (baker catheter in place) - Extremities Exam Extremities exam: normal capillary refill, pedal pulses present. absent: pedal edema - Neurological Exam Neurological exam: Altered - Skin Skin Exam: Dry, Normal Color Assessment/Plan (1) Transaminitis Current Visit: Yes Status: Acute Comment: chronically high LFTs Today: AST 128, ALT 212, ALP 145, tbili 0.3 Trending down Monitor CMP (2) Respiratory failure Current Visit: Yes Status: Acute Comment: Pmxpy-[id number] depedence with no change in vent settings (FiO2 40% | PEEP 5 | RR 16 | Vt 450) unable to wean - (trial on 06/27) Dr. Salgado - Pulmonology - help very much appreciated (3) Anoxic encephalopathy Current Visit: Yes Status: Acute Comment: 07/03:clinical status unchanged monitor for changes 07/02: clinical status unchanged monitor for changes 07/01: clinical status unchanged unresponsive to painful and verbal stimuli monitor for changes 06/30: No clinical change in status Continue monitoring for any changes 06/29: No changes Monitor responses to verbal and painful stimuli Patient in persistent vegatative state Condition discussed with with daughter, All study results discussed with daughter 06/28: cerebral flow scan with persistent flow in posterior aspect of brain, no flow in majority of supratentorial brain (please see full report) Patient in persistent vegatative state as per neuro Patient with PEG and Trach Cont fosphenytoin 06/27: Reconsulted Dr. Garcia - help very much appreciated EEG and Cerebral flow scan ordered -f/u resultes s/p PEG and trach Monitor 8/4: No changes, decerebrate posture 8/: No changes, decorticate posture; goal rate of tube feeding set to 60mls/ hour S/p trach and peg placement 8/: No acute changes. Gave Thorazine 25mg IM to control hiccups. S/P trach and PEG placement, POD#4. 8: No acute changes. S/P trach and PEG placement, POD#3. 06/22 Spoke with family about transporationt to [place], family requested initial reports from admission. Patient is given 25mg of IM Thorazine for hiccup like movements. 06/21: S/P Trach and PEG. POD #1 Waiting for placement Transfer out of ICU today Head CT (06/20) - Global ischemia. Diffuse loss of lester white matter differentiation. This is most likely the results of an anoxic event such as cardiac arrest. 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 No evidence of downward herniation or midline shift. Most likely due to cardiac arrest Family still wants full code. Intubated Unresponsive to painful stimuli Palliative care on case (4) CAD (coronary artery disease) Current Visit: Yes Status: Acute Comment: s/p cardiac cath with stenting Continue Plavix 75mg PO daily Continue Vasotec 2.5 mg PO daily Continue ASA 325mg PO daily Statin held secondary to elevated LFTs (5) STEMI (ST elevation myocardial infarction) Current Visit: Yes Status: Acute Comment: Continue Plavix 75mg PO daily Continue ASA 325mg PO daily Continue Vasotec 2.5mg PO daily Monitor (6) Seizures Current Visit: Yes Status: Acute Comment: Dr. Garcia on case-help appreciated likely secondary to anoxic brain injury Cont Fosphenytoin 100mg IVP Q8 Continue to monitor for seizure activity (7) Prophylactic measure Current Visit: Yes Status: Acute Comment: Pepcid 20 mg PO q12 SCD's Plavix Miralax Colace BID <Amandeep Chavis H - Last Filed: 07/03/15 11:44> Objective - Vital Signs/Intake and Output Vital Signs (last 24 hours): Vital Signs - 24 hr 07/02/15 07/02/15 07/02/15 14:00 15:31 21:05 Temperature 97.3 F L 97.9 F Pulse Rate 70 70 72 Respiratory 20 16 Rate Blood Pressure 114/78 97/64 L O2 Sat by Pulse 100 100 Oximetry 07/03/15 07/03/15 07/03/15 05:41 07:45 10:48 Temperature 97.0 F L Pulse Rate 99 H 99 H Respiratory 20 Rate Blood Pressure 115/73 115/73 O2 Sat by Pulse 100 Oximetry Intake and Output (last 12 hours): Intake & Output 07/02/15 07/03/15 07/03/15 18:59 06:59 18:59 Intake Total 580 Output Total 175 1350 Balance -175 -770 Weight 140 lb 5 oz Intake: Intake, IV Amount 100 Right Forearm 100 Tube Feeding 480 Output: Urine 175 1350 Urethral (Baker) 175 1350 Other: Voiding Method Indwelling Catheter Indwelling Catheter # Bowel Movements 0 - Medications Medications: Current Medications Amiodarone HCl (Cordarone) 200 mg PO DAILY [facility] Last Admin: 07/03/15 10:49 Dose: 200 mg Aspirin (Aspirin) 325 mg PO DAILY [facility] Last Admin: 07/03/15 10:49 Dose: 325 mg Clopidogrel Bisulfate (Plavix) 75 mg PO DAILY [facility] Last Admin: 07/03/15 10:48 Dose: 75 mg Docusate Sodium (Colace Liquid) 100 mg PEG BID [facility] Last Admin: 07/03/15 10:48 Dose: 100 mg Famotidine (Pepcid) 20 mg PO BID [facility] Last Admin: 07/03/15 10:49 Dose: 20 mg Fosphenytoin Sodium 100 mg/ (Dextrose) 52 mls @ 100 mls/hr IV Q8H [facility] Last Admin: 07/03/15 03:06 Dose: 100 mls/hr Lisinopril (Zestril) 5 mg PO DAILY [facility] Polyethylene Glycol (Miralax) 17 gm PO DAILY [facility] Last Admin: 07/03/15 10:48 Dose: 17 gm Potassium Chloride (Potassium Chloride Oral Soln) 40 meq NG DAILY [facility] Last Admin: 07/03/15 10:47 Dose: 40 meq - Labs Labs (last 24 hours): Laboratory Results - last 24 hr 07/03/15 07:24 WBC 9.1 RBC 3.62 L Hgb 11.0 L Hct 33.7 L MCV 93.1 MCH 30.4 MCHC 32.6 L RDW 14.3 Plt Count 395 MPV 7.5 Neut % (Auto) 76.9 H Lymph % (Auto) 11.9 L Mitchell % (Auto) 8.1 Eos % (Auto) 2.2 Baso % (Auto) 0.9 Neut # 7.0 Lymph # 1.1 Mitchell # 0.7 Eos # 0.2 Baso # 0.1 Sodium 139 Potassium 3.9 Chloride 101 Carbon Dioxide 27 Anion Gap 15 BUN 26 H Creatinine 0.6 L Est GFR ( Amer) > 60 Est GFR (Non-Af Amer) > 60 Random Glucose 129 H Calcium 8.5 Phosphorus 3.8 Magnesium 2.1 Total Bilirubin 0.3 AST 128 H ALT 212 H Alkaline Phosphatase 145 H Total Protein 7.2 Albumin 3.1 L Globulin 4.1 H Albumin/Globulin Ratio 0.8 L Assessment/Plan (1) Respiratory failure Current Visit: Yes Status: Acute Comment: [id number] depedence with no change in vent settings (FiO2 40% | PEEP 5 | RR 16 | Vt 450) unable to wean - (trial on 06/27) Dr. Salgado - Pulmonology - help very much appreciated (2) Anoxic encephalopathy Current Visit: Yes Status: Acute Comment: 07/03:clinical status unchanged monitor for changes 07/02: clinical status unchanged monitor for changes 07/01: clinical status unchanged unresponsive to painful and verbal stimuli monitor for changes 06/30: No clinical change in status Continue monitoring for any changes 06/29: No changes Monitor responses to verbal and painful stimuli Patient in persistent vegatative state Condition discussed with with daughter, All study results discussed with daughter 06/28: cerebral flow scan with persistent flow in posterior aspect of brain, no flow in majority of supratentorial brain (please see full report) Patient in persistent vegatative state as per neuro Patient with PEG and Trach Cont fosphenytoin 06/27: Reconsulted Dr. Garcia - help very much appreciated EEG and Cerebral flow scan ordered -f/u resultes s/p PEG and trach Monitor 06/26: No changes, decerebrate posture 06/25: No changes, decorticate posture; goal rate of tube feeding set to 60mls/ hour S/p trach and peg placement 8/: No acute changes. Gave Thorazine 25mg IM to control hiccups. S/P trach and PEG placement, POD#4. 06/23: No acute changes. S/P trach and PEG placement, POD#3. 06/22 Spoke with family about transporationt to [place], family requested initial reports from admission. Patient is given 25mg of IM Thorazine for hiccup like movements. 06/21: S/P Trach and PEG. POD #1 Waiting for placement Transfer out of ICU today Head CT (06/20) - Global ischemia. Diffuse loss of lester white matter differentiation. This is most likely the results of an anoxic event such as cardiac arrest. 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 No evidence of downward herniation or midline shift. Most likely due to cardiac arrest Family still wants full code. Intubated Unresponsive to painful stimuli Palliative care on case (3) STEMI (ST elevation myocardial infarction) Current Visit: Yes Status: Acute Comment: Continue Plavix 75mg PO daily Continue ASA 325mg PO daily Continue Vasotec 2.5mg PO daily Monitor (4) Cardiac arrest Current Visit: Yes Status: Acute Comment: S/P V-Tach arrest Continue Plavix 75mg POdaily Continue amiodarone 200mg PO daily Continue ASA 325mg PO daily Continue enalapril 2.5mg PO daily Monitor (5) Seizures Current Visit: Yes Status: Acute Comment: Dr. Garcia on case-help appreciated likely secondary to anoxic brain injury Cont Fosphenytoin 100mg IVP Q8 Continue to monitor for seizure activity (6) Prophylactic measure Current Visit: Yes Status: Acute Comment: Pepcid 20 mg PO q12 SCD's Plavix Miralax Colace BID Attending/Attestation - Attestation I have personally seen and examined this patient.: Yes I have fully participated in the care of the patient.: Yes I have reviewed all pertinent clinical information: Yes Notes (Text): 07/03/15 11:44 Medical Attending: Agree with the above note by resident. No change in situation. Patient was seen and examined by me. From now on check labs only every other day please. Thank you Amandeep Chavis"
[2015-07-03 07:50] LABS: BASO # 0.1 K/uL (0.0-0.2); BASO % 0.9 % (0.0-2.0); EOS # 0.2 K/uL (0.0-0.7); EOS % 2.2 % (0.0-4.0); LYMPH # 1.1 K/uL (1.0-4.3); LYMPH % 11.9 % (20.0-40.0); MEAN CELL VOLUME 93.1 fL (80.0-94.0); MEAN CORPUSCULAR HEMOGLOBIN 30.4 pg (27.0-31.0); MEAN CORPUSCULAR HGB CONC 32.6 g/dL (33.0-37.0); MEAN PLATELET VOLUME 7.5 fL (7.2-11.7); MONO # 0.7 K/uL (0.0-0.8); MONO % 8.1 % (0.0-10.0); NEUT % 76.9 % (50.0-75.0); RBC 3.62 Mil/uL (4.40-5.90); RED CELL DISTRIBUTION WIDTH 14.3 % (11.5-14.5); WHITE BLOOD COUNT 9.1 K/uL (4.8-10.8)
[2015-07-03 08:08] LABS: ALBUMIN 3.1 g/dL (3.5-5.0)
[2015-07-03 08:11] LABS: ALB/GLOB RATIO 0.8 (1.0-2.1); AST/SGOT 128 U/L (17-59); BLOOD UREA NITROGEN 26 mg/dL (9-20); GFR NON-AFRICAN AMERICAN > 60
[2015-07-03 08:12] LABS: ALT/SGPT 212 U/L (21-72); CALCIUM 8.5 mg/dL (8.4-10.2)
[2015-07-03] MEDS: Potassium Chloride 20 mEq/15 ml LIQ UD NG SCH (10:47)
[2015-07-03] MEDS: POLYETHYLENE GLYCOL 3350 17 GM/Dose PACKET PO SCH (10:48)
[2015-07-04] MEDS: Fosphenytoin 100 MG in Dextrose 5% In Water 50 ML IV SCH ×3 (03:35→19:32)
--- NOTE | 2015-07-04 10:55 | CP.PCM.PN ---
"<Judith Baires H - Last Filed: 07/04/15 10:52> Subjective - Subjective Subjective: Medicine Note PGY1: Patient seen and examined at bedside this AM. Patient moved his whole torso spontaneously. Patient unresponsive to verbal and painful stimuli. Patient did not open his eyes today. Patient's status unchanged. ROS unable to be completed due to anoxic brain injury. Awaiting placement Review of Systems - Review of Systems Systems not reviewed;Unavailable: Altered Mental Status Objective - Vital Signs/Intake and Output Vital Signs (last 24 hours): Vital Signs - 24 hr 07/03/15 07/03/15 07/04/15 13:41 21:32 05:51 Temperature 96.7 F L 97.8 F 98 F Pulse Rate 49 L 66 70 Respiratory 20 20 20 Rate Blood Pressure 111/80 108/70 108/71 O2 Sat by Pulse 100 100 100 Oximetry Intake and Output (last 12 hours): Intake & Output 07/03/15 07/04/15 07/04/15 18:59 06:59 18:59 Intake Total 1430 Output Total 200 550 Balance -200 880 Intake: Intake, IV Amount 250 Right Forearm 150 Right Forearm 100 Oral 0 Tube Feeding 880 Other 300 Output: Urine 200 550 Urethral (Baker) 200 550 Other: # Bowel Movements 0 - Medications Medications: Current Medications Amiodarone HCl (Cordarone) 200 mg PO DAILY [facility] Last Admin: 07/03/15 10:49 Dose: 200 mg Aspirin (Aspirin) 325 mg PO DAILY [facility] Last Admin: 07/03/15 10:49 Dose: 325 mg Clopidogrel Bisulfate (Plavix) 75 mg PO DAILY [facility] Last Admin: 07/03/15 10:48 Dose: 75 mg Docusate Sodium (Colace Liquid) 100 mg PEG BID [facility] Last Admin: 07/03/15 17:34 Dose: 100 mg Famotidine (Pepcid) 20 mg PO BID [facility] Last Admin: 07/03/15 17:34 Dose: 20 mg Fosphenytoin Sodium 100 mg/ (Dextrose) 52 mls @ 100 mls/hr IV Q8H [facility] Last Admin: 07/04/15 03:35 Dose: 100 mls/hr Lisinopril (Zestril) 5 mg PO DAILY [facility] Polyethylene Glycol (Miralax) 17 gm PO DAILY [facility] Last Admin: 07/03/15 10:48 Dose: 17 gm - Constitutional Appears: Chronically Ill - Head Exam Head Exam: NORMAL INSPECTION - Eye Exam Additional comments: pupils reactive to light left pupil larger than right pupil - ENT Exam ENT Exam: Mucous Membranes Moist - Respiratory Exam Respiratory Exam: Clear to PA & Lateral, NORMAL BREATHING PATTERN Additional comments: trach collar FiO2 40 - Cardiovascular Exam Cardiovascular Exam: REGULAR RHYTHM, +S1, +S2 - GI/Abdominal Exam GI & Abdominal Exam: Normal Bowel Sounds, Soft. absent: Distended, Firm, Organomegaly Additional comments: peg in place - Exam Exam: NORMAL INSPECTION (baker in place, dark urine in bag) - Extremities Exam Extremities exam: pedal pulses present. absent: pedal edema - Neurological Exam Neurological exam: Altered - Skin Skin Exam: Dry, Normal Color Assessment/Plan (1) Transaminitis Current Visit: Yes Status: Acute Comment: chronically high LFTs 07/03: AST 128, ALT 212, ALP 145, tbili 0.3 Trending down Monitor CMP every other day (2) Respiratory failure Current Visit: Yes Status: Acute Comment: [id number] depedence with no change in vent settings (FiO2 40% | PEEP 5 | RR 16 | Vt 450) unable to wean - (trial on 06/27) Dr. Salgado - Pulmonology - help very much appreciated (3) Anoxic encephalopathy Current Visit: Yes Status: Acute Comment: clinical status unchanged monitor for changes Patient in persistent vegatative state Condition discussed with with daughter on 06/29, All study results discussed with daughter 06/28: cerebral flow scan with persistent flow in posterior aspect of brain, no flow in majority of supratentorial brain (please see full report) Patient in persistent vegatative state as per neuro Patient with PEG and Trach Cont fosphenytoin 06/27: Reconsulted Dr. Garcia - help very much appreciated EEG and Cerebral flow scan ordered -f/u resultes s/p PEG and trach Monitor 06/25: No changes, decorticate posture; goal rate of tube feeding set to 60mls/ hour S/p trach and peg placement 06/24:No acute changes. Gave Thorazine 25mg IM to control hiccups. S/P trach and PEG placement, POD#4. 06/22 Spoke with family about transporationt to [place], family requested initial reports from admission. Patient is given 25mg of IM Thorazine for hiccup like movements. 06/21: S/P Trach and PEG. POD #1 Waiting for placement Transfer out of ICU today Head CT (06/20) - Global ischemia. Diffuse loss of lester white matter differentiation. This is most likely the results of an anoxic event such as cardiac arrest. 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 No evidence of downward herniation or midline shift. Most likely due to cardiac arrest Family still wants full code. Intubated Unresponsive to painful stimuli Palliative care on case (4) CAD (coronary artery disease) Current Visit: Yes Status: Acute Comment: s/p cardiac cath with stenting Continue Plavix 75mg PO daily Continue Vasotec 2.5 mg PO daily Continue ASA 325mg PO daily Statin held secondary to elevated LFTs (5) STEMI (ST elevation myocardial infarction) Current Visit: Yes Status: Acute Comment: Continue Plavix 75mg PO daily Continue ASA 325mg PO daily Continue Vasotec 2.5mg PO daily Monitor (6) Seizures Current Visit: Yes Status: Acute Comment: Dr. Garcia on case-help appreciated likely secondary to anoxic brain injury Cont Fosphenytoin 100mg IVP Q8 Continue to monitor for seizure activity (7) Prophylactic measure Current Visit: Yes Status: Acute Comment: Pepcid 20 mg PO q12 SCD's Plavix Miralax Colace BID <Amandeep Chavis H - Last Filed: 07/04/15 13:22> Objective - Vital Signs/Intake and Output Vital Signs (last 24 hours): Vital Signs - 24 hr 07/03/15 07/03/15 07/04/15 13:41 21:32 05:51 Temperature 96.7 F L 97.8 F 98 F Pulse Rate 49 L 66 70 Respiratory 20 20 20 Rate Blood Pressure 111/80 108/70 108/71 O2 Sat by Pulse 100 100 100 Oximetry Intake and Output (last 12 hours): Intake & Output 07/03/15 07/04/15 07/04/15 18:59 06:59 18:59 Intake Total 1430 Output Total 200 550 Balance -200 880 Intake: Intake, IV Amount 250 Right Forearm 150 Right Forearm 100 Oral 0 Tube Feeding 880 Other 300 Output: Urine 200 550 Urethral (Baker) 200 550 Other: Voiding Method Indwelling Catheter # Bowel Movements 0 - Medications Medications: Current Medications Amiodarone HCl (Cordarone) 200 mg PO DAILY [facility] Last Admin: 07/04/15 11:10 Dose: 200 mg Aspirin (Aspirin) 325 mg PO DAILY [facility] Last Admin: 07/04/15 11:09 Dose: 325 mg Clopidogrel Bisulfate (Plavix) 75 mg PO DAILY [facility] Last Admin: 07/04/15 11:09 Dose: 75 mg Docusate Sodium (Colace Liquid) 100 mg PEG BID [facility] Last Admin: 07/04/15 11:08 Dose: 100 mg Famotidine (Pepcid) 20 mg PO BID [facility] Last Admin: 07/04/15 11:09 Dose: 20 mg Fosphenytoin Sodium 100 mg/ (Dextrose) 52 mls @ 100 mls/hr IV Q8H [facility] Last Admin: 07/04/15 11:08 Dose: 100 mls/hr Lisinopril (Zestril) 5 mg PO DAILY [facility] Last Admin: 07/04/15 11:09 Dose: 5 mg Polyethylene Glycol (Miralax) 17 gm PO DAILY [facility] Last Admin: 07/04/15 11:09 Dose: 17 gm Assessment/Plan (1) Respiratory failure Current Visit: Yes Status: Acute Comment: [id number] depedence with no change in vent settings (FiO2 40% | PEEP 5 | RR 16 | Vt 450) unable to wean - (trial on 06/27) Dr. Salgado - Pulmonology - help very much appreciated (2) Anoxic encephalopathy Current Visit: Yes Status: Acute Comment: clinical status unchanged monitor for changes Patient in persistent vegatative state Condition discussed with with daughter on 06/29, All study results discussed with daughter 06/28: cerebral flow scan with persistent flow in posterior aspect of brain, no flow in majority of supratentorial brain (please see full report) Patient in persistent vegatative state as per neuro Patient with PEG and Trach Cont fosphenytoin 06/27: Reconsulted Dr. Garcia - help very much appreciated EEG and Cerebral flow scan ordered -f/u resultes s/p PEG and trach Monitor 06/25: No changes, decorticate posture; goal rate of tube feeding set to 60mls/ hour S/p trach and peg placement 06/24:No acute changes. Gave Thorazine 25mg IM to control hiccups. S/P trach and PEG placement, POD#4. 06/22 Spoke with family about transporationt to [place], family requested initial reports from admission. Patient is given 25mg of IM Thorazine for hiccup like movements. 06/21: S/P Trach and PEG. POD #1 Waiting for placement Transfer out of ICU today Head CT (06/20) - Global ischemia. Diffuse loss of lester white matter differentiation. This is most likely the results of an anoxic event such as cardiac arrest. 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 No evidence of downward herniation or midline shift. Most likely due to cardiac arrest Family still wants full code. Intubated Unresponsive to painful stimuli Palliative care on case (3) STEMI (ST elevation myocardial infarction) Current Visit: Yes Status: Acute Comment: Continue Plavix 75mg PO daily Continue ASA 325mg PO daily Continue Vasotec 2.5mg PO daily Monitor (4) Cardiac arrest Current Visit: Yes Status: Acute Comment: S/P V-Tach arrest Continue Plavix 75mg POdaily Continue amiodarone 200mg PO daily Continue ASA 325mg PO daily Continue enalapril 2.5mg PO daily Monitor (5) Seizures Current Visit: Yes Status: Acute Comment: Dr. Garcia on case-help appreciated likely secondary to anoxic brain injury Cont Fosphenytoin 100mg IVP Q8 Continue to monitor for seizure activity (6) Prophylactic measure Current Visit: Yes Status: Acute Comment: Pepcid 20 mg PO q12 SCD's Plavix Miralax Colace BID Attending/Attestation - Attestation I have personally seen and examined this patient.: Yes I have fully participated in the care of the patient.: Yes I have reviewed all pertinent clinical information: Yes Notes (Text): 07/04/15 13:21 Medical Attending: No acute changes from before. Situation is unchanged, agree with the above note by resident. Pt seen and examined by me. Labs every other day. Thank you Amandeep Chavis"
[2015-07-04] MEDS: POLYETHYLENE GLYCOL 3350 17 GM/Dose PACKET PO SCH (11:09)
--- NOTE | 2015-07-04 11:14 | EEG ---
DATE: 06/28/2015 This is a 16-channel electroencephalogram of a comatose adult. The study was performed at the bedside. There is a global bilateral cerebral silence. No electrical activities noted in bilateral cortical leads. Later somewhat 2-3 Hz delta activities seen intermittently in bilateral frontal leads. The photic stimulation did not evoke driving response noted at 2-20 Hz. IMPRESSION: This is a globally abnormal electroencephalogram because of persistent bursts of suppression followed with some frontal delta activities, low amplitude delta activities are seen. There are no paroxysmal activities noted from the beginning. This recording does not qualify bilateral cerebral silence (this is brain ). Dennis Garcia MD cc: [id number] TT: 07/02/2015 11:18:00 nn MTDD
[2015-07-05] MEDS: Fosphenytoin 100 MG in Dextrose 5% In Water 50 ML IV SCH ×3 (04:00→19:52)
[2015-07-05 07:25] LABS: BASO # 0.1 K/uL (0.0-0.2); BASO % 0.7 % (0.0-2.0); EOS # 0.3 K/uL (0.0-0.7); EOS % 2.5 % (0.0-4.0); HEMOGLOBIN 11.2 g/dL (12.0-18.0); LYMPH # 1.3 K/uL (1.0-4.3); LYMPH % 11.8 % (20.0-40.0); MEAN CELL VOLUME 92.1 fL (80.0-94.0); MEAN CORPUSCULAR HEMOGLOBIN 30.7 pg (27.0-31.0); MEAN CORPUSCULAR HGB CONC 33.3 g/dL (33.0-37.0); MEAN PLATELET VOLUME 7.7 fL (7.2-11.7); MONO # 0.8 K/uL (0.0-0.8); MONO % 6.9 % (0.0-10.0); NEUT # 8.5 K/uL (1.8-7.0); NEUT % 78.1 % (50.0-75.0); RBC 3.66 Mil/uL (4.40-5.90); RED CELL DISTRIBUTION WIDTH 14.3 % (11.5-14.5); WHITE BLOOD COUNT 10.9 K/uL (4.8-10.8)
--- NOTE | 2015-07-05 07:29 | CP.PCM.PN ---
"<Judith Baires H - Last Filed: 07/05/15 09:22> Subjective - Subjective Subjective: Patient seen and examined at bedside by me this AM. Patient unresponsive to verbal and painful stimuli after anoxic brain injury post HI. S/P trach and PEG placement. Stitches removed on Thursday. Continuous mechanical ventilation. Patient is in decerebrate posture. Family wants all measures taken to keep patient alive. Awaiting placement. Review of Systems - Review of Systems Systems not reviewed;Unavailable: Altered Mental Status Objective - Vital Signs/Intake and Output Vital Signs (last 24 hours): Vital Signs - 24 hr 07/04/15 07/04/15 07/05/15 14:24 22:24 06:00 Temperature 97.0 F L 98.2 F 98.6 F Pulse Rate 68 71 75 Respiratory 20 20 20 Rate Blood Pressure 96/66 L 114/76 102/69 O2 Sat by Pulse 93 L 94 L 99 Oximetry Intake and Output (last 12 hours): Intake & Output 07/04/15 07/05/15 07/05/15 18:59 06:59 18:59 Intake Total 580 680 Output Total 300 800 Balance 280 -120 Intake: Intake, IV Amount 100 100 Right Forearm 100 100 Oral 480 Tube Feeding 480 Other 100 Output: Urine 300 800 Urethral (Yoo) 300 800 Other: Voiding Method Indwelling Catheter - Medications Medications: Current Medications Amiodarone HCl (Cordarone) 200 mg PO DAILY [facility] Last Admin: 07/04/15 11:10 Dose: 200 mg Aspirin (Aspirin) 325 mg PO DAILY [facility] Last Admin: 07/04/15 11:09 Dose: 325 mg Clopidogrel Bisulfate (Plavix) 75 mg PO DAILY [facility] Last Admin: 07/04/15 11:09 Dose: 75 mg Docusate Sodium (Colace Liquid) 100 mg PEG BID [facility] Last Admin: 07/04/15 17:27 Dose: 100 mg Famotidine (Pepcid) 20 mg PO BID [facility] Last Admin: 07/04/15 17:27 Dose: 20 mg Fosphenytoin Sodium 100 mg/ (Dextrose) 52 mls @ 100 mls/hr IV Q8H [facility] Last Admin: 07/05/15 04:00 Dose: 100 mls/hr Lisinopril (Zestril) 5 mg PO DAILY [facility] Last Admin: 07/04/15 11:09 Dose: 5 mg Polyethylene Glycol (Miralax) 17 gm PO DAILY [facility] Last Admin: 07/04/15 11:09 Dose: 17 gm - Constitutional Appears: Chronically Ill - Head Exam Head Exam: NORMAL INSPECTION - Eye Exam Eye Exam: EOMI - ENT Exam ENT Exam: Mucous Membranes Moist - Respiratory Exam Respiratory Exam: Clear to PA & Lateral, NORMAL BREATHING PATTERN, UNREMARKABLE Additional comments: trach collar FiO2 40 - Cardiovascular Exam Cardiovascular Exam: REGULAR RHYTHM, +S1, +S2 - GI/Abdominal Exam GI & Abdominal Exam: Normal Bowel Sounds, Soft. absent: Distended, Firm Additional comments: peg in place - no blood or drainage - Extremities Exam Extremities exam: pedal pulses present. absent: pedal edema - Neurological Exam Neurological exam: Altered - Skin Skin Exam: Dry, Normal Color Assessment/Plan (1) Transaminitis Current Visit: Yes Status: Acute Comment: chronically high LFTs 07/05: AST 135, ALT 194, ALP 162 stable Monitor CMP every other day (2) Respiratory failure Current Visit: Yes Status: Acute Comment: [id number] depedence with no change in vent settings (FiO2 40% | PEEP 5 | RR 16 | Vt 450) unable to wean - (trial on 06/27) Dr. Salgado - Pulmonology - help very much appreciated (3) Anoxic encephalopathy Current Visit: Yes Status: Acute Comment: clinical status unchanged monitor for changes Patient in persistent vegatative state Condition discussed with with daughter on 06/29, All study results discussed with daughter 06/28: cerebral flow scan with persistent flow in posterior aspect of brain, no flow in majority of supratentorial brain (please see full report) Patient in persistent vegatative state as per neuro Patient with PEG and Trach Cont fosphenytoin 06/27: Reconsulted Dr. Garcia - help very much appreciated EEG and Cerebral flow scan ordered -f/u resultes s/p PEG and trach Monitor 06/25: No changes, decorticate posture; goal rate of tube feeding set to 60mls/ hour S/p trach and peg placement 06/24:No acute changes. Gave Thorazine 25mg IM to control hiccups. S/P trach and PEG placement, POD#4. 06/22 Spoke with family about transporationt to [place], family requested initial reports from admission. Patient is given 25mg of IM Thorazine for hiccup like movements. 06/21: S/P Trach and PEG. POD #1 Waiting for placement Transfer out of ICU today Head CT (06/20) - Global ischemia. Diffuse loss of lester white matter differentiation. This is most likely the results of an anoxic event such as cardiac arrest. 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 No evidence of downward herniation or midline shift. Most likely due to cardiac arrest Family still wants full code. Intubated Unresponsive to painful stimuli Palliative care on case (4) CAD (coronary artery disease) Current Visit: Yes Status: Acute Comment: s/p cardiac cath with stenting Continue Plavix 75mg PO daily Continue Vasotec 2.5 mg PO daily Continue ASA 325mg PO daily Statin held secondary to elevated LFTs (5) STEMI (ST elevation myocardial infarction) Current Visit: Yes Status: Acute Comment: Continue Plavix 75mg PO daily Continue ASA 325mg PO daily Continue Vasotec 2.5mg PO daily Monitor (6) Seizures Current Visit: Yes Status: Acute Comment: Dr. Garcia on case-help appreciated likely secondary to anoxic brain injury Cont Fosphenytoin 100mg IVP Q8 Continue to monitor for seizure activity (7) Prophylactic measure Current Visit: Yes Status: Acute Comment: Pepcid 20 mg PO q12 SCD's Plavix Miralax Colace BID <Amandeep Chavis H - Last Filed: 07/05/15 11:44> Objective - Vital Signs/Intake and Output Vital Signs (last 24 hours): Vital Signs - 24 hr 07/04/15 07/04/15 07/05/15 14:24 22:24 06:00 Temperature 97.0 F L 98.2 F 98.6 F Pulse Rate 68 71 75 Respiratory 20 20 20 Rate Blood Pressure 96/66 L 114/76 102/69 O2 Sat by Pulse 93 L 94 L 99 Oximetry Intake and Output (last 12 hours): Intake & Output 07/04/15 07/05/15 07/05/15 18:59 06:59 18:59 Intake Total 580 680 Output Total 300 800 Balance 280 -120 Intake: Intake, IV Amount 100 100 Right Forearm 100 100 Oral 480 Tube Feeding 480 Other 100 Output: Urine 300 800 Urethral (Yoo) 300 800 Other: Voiding Method Indwelling Catheter - Medications Medications: Current Medications Aspirin (Aspirin) 325 mg PO DAILY [facility] Last Admin: 07/05/15 10:48 Dose: 325 mg Clopidogrel Bisulfate (Plavix) 75 mg PO DAILY [facility] Last Admin: 07/05/15 10:47 Dose: 75 mg Docusate Sodium (Colace Liquid) 100 mg PEG BID [facility] Last Admin: 07/05/15 10:47 Dose: 100 mg Famotidine (Pepcid) 20 mg PO BID [facility] Last Admin: 07/05/15 10:48 Dose: 20 mg Fosphenytoin Sodium 100 mg/ (Dextrose) 52 mls @ 100 mls/hr IV Q8H [facility] Last Admin: 07/05/15 11:03 Dose: 100 mls/hr Lisinopril (Zestril) 5 mg PO DAILY [facility] Last Admin: 07/05/15 10:48 Dose: 5 mg Polyethylene Glycol (Miralax) 17 gm PO DAILY [facility] Last Admin: 07/05/15 10:47 Dose: 17 gm - Labs Labs (last 24 hours): Laboratory Results - last 24 hr 07/05/15 07:10 WBC 10.9 H RBC 3.66 L Hgb 11.2 L Hct 33.7 L MCV 92.1 MCH 30.7 MCHC 33.3 RDW 14.3 Plt Count 341 MPV 7.7 Neut % (Auto) 78.1 H Lymph % (Auto) 11.8 L [place] % (Auto) 6.9 Eos % (Auto) 2.5 Baso % (Auto) 0.7 Neut # 8.5 H Lymph # 1.3 [place] # 0.8 Eos # 0.3 Baso # 0.1 Sodium 139 Potassium 3.8 Chloride 102 Carbon Dioxide 26 Anion Gap 15 BUN 25 H Creatinine 0.7 L Est GFR ( Amer) > 60 Est GFR (Non-Af Amer) > 60 Random Glucose 113 H Calcium 8.5 Phosphorus 3.2 Magnesium 2.1 Total Bilirubin 0.3 AST 135 H ALT 194 H Alkaline Phosphatase 162 H Total Protein 7.3 Albumin 3.1 L Globulin 4.2 H Albumin/Globulin Ratio 0.7 L Assessment/Plan (1) Respiratory failure Current Visit: Yes Status: Acute Comment: [id number] depedence with no change in vent settings (FiO2 40% | PEEP 5 | RR 16 | Vt 450) unable to wean - (trial on 06/27) Dr. Salgado - Pulmonology - help very much appreciated (2) Anoxic encephalopathy Current Visit: Yes Status: Acute Comment: clinical status unchanged monitor for changes Patient in persistent vegatative state Condition discussed with with daughter on 06/29, All study results discussed with daughter 06/28: cerebral flow scan with persistent flow in posterior aspect of brain, no flow in majority of supratentorial brain (please see full report) Patient in persistent vegatative state as per neuro Patient with PEG and Trach Cont fosphenytoin 06/27: Reconsulted Dr. Garcia - help very much appreciated EEG and Cerebral flow scan ordered -f/u resultes s/p PEG and trach Monitor 06/25: No changes, decorticate posture; goal rate of tube feeding set to 60mls/ hour S/p trach and peg placement 06/24:No acute changes. Gave Thorazine 25mg IM to control hiccups. S/P trach and PEG placement, POD#4. 06/22 Spoke with family about transporationt to [place], family requested initial reports from admission. Patient is given 25mg of IM Thorazine for hiccup like movements. 06/21: S/P Trach and PEG. POD #1 Waiting for placement Transfer out of ICU today Head CT (06/20) - Global ischemia. Diffuse loss of lester white matter differentiation. This is most likely the results of an anoxic event such as cardiac arrest. 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 No evidence of downward herniation or midline shift. Most likely due to cardiac arrest Family still wants full code. Intubated Unresponsive to painful stimuli Palliative care on case (3) STEMI (ST elevation myocardial infarction) Current Visit: Yes Status: Acute Comment: Continue Plavix 75mg PO daily Continue ASA 325mg PO daily Continue Vasotec 2.5mg PO daily Monitor (4) Cardiac arrest Current Visit: Yes Status: Acute Comment: S/P V-Tach arrest Continue Plavix 75mg POdaily Continue amiodarone 200mg PO daily Continue ASA 325mg PO daily Continue enalapril 2.5mg PO daily Monitor (5) Seizures Current Visit: Yes Status: Acute Comment: Dr. Garcia on case-help appreciated likely secondary to anoxic brain injury Cont Fosphenytoin 100mg IVP Q8 Continue to monitor for seizure activity (6) Prophylactic measure Current Visit: Yes Status: Acute Comment: Pepcid 20 mg PO q12 SCD's Plavix Miralax Colace BID Attending/Attestation - Attestation I have personally seen and examined this patient.: Yes I have fully participated in the care of the patient.: Yes I have reviewed all pertinent clinical information: Yes Notes (Text): 07/05/15 11:44 Medical Attending: Situation is unchanged from before. Agree with the above. Labs every other day. Amandeep Chavis"
[2015-07-05 07:50] LABS: ALBUMIN 3.1 g/dL (3.5-5.0)
[2015-07-05 07:52] LABS: GFR NON-AFRICAN AMERICAN > 60
[2015-07-05 07:53] LABS: ALB/GLOB RATIO 0.7 (1.0-2.1); ALT/SGPT 194 U/L (21-72); AST/SGOT 135 U/L (17-59); BLOOD UREA NITROGEN 25 mg/dL (9-20)
[2015-07-05 07:54] LABS: CALCIUM 8.5 mg/dL (8.4-10.2)
[2015-07-05] MEDS: POLYETHYLENE GLYCOL 3350 17 GM/Dose PACKET PO SCH (10:47)
[2015-07-06] MEDS: Fosphenytoin 100 MG in Dextrose 5% In Water 50 ML IV SCH ×3 (03:38→21:51)
[2015-07-06] MEDS: POLYETHYLENE GLYCOL 3350 17 GM/Dose PACKET PO SCH (10:41)
--- NOTE | 2015-07-06 13:57 | CP.PCM.PN ---
<Judith Baires H - Last Filed: 07/06/15 13:55> Subjective - Subjective Subjective: Medicine Note PGY1: Patient seen and examined at bedside this AM. Patient unresponsive to verbal and painful stimuli after anoxic brain injury post ME. S/P trach and PEG placement. Stitches removed on Thursday. Continuous mechanical ventilation. Family wants all measures taken to keep patient alive. Awaiting placement. Review of Systems - Review of Systems Systems not reviewed;Unavailable: Altered Mental Status Objective - Vital Signs/Intake and Output Vital Signs (last 24 hours): Vital Signs - 24 hr 07/05/15 07/05/15 07/06/15 14:36 21:41 05:09 Temperature 98.3 F 97.7 F 98 F Pulse Rate 65 100 H 20 L Respiratory 20 19 20 Rate Blood Pressure 108/71 109/68 118/74 O2 Sat by Pulse 99 98 100 Oximetry Intake and Output (last 12 hours): Intake & Output 07/05/15 07/06/15 07/06/15 18:59 06:59 18:59 Output Total 250 500 Balance -250 -500 Weight 151 lb Output: Urine 250 500 Urethral (Yoo) 250 500 Other: Voiding Method Indwelling Catheter Indwelling Catheter Indwelling Catheter - Medications Medications: Current Medications Aspirin (Aspirin) 325 mg PO DAILY [facility] Last Admin: 07/06/15 10:41 Dose: 325 mg Clopidogrel Bisulfate (Plavix) 75 mg PO DAILY [facility] Last Admin: 07/06/15 10:41 Dose: 75 mg Docusate Sodium (Colace Liquid) 100 mg PEG BID [facility] Last Admin: 07/06/15 10:41 Dose: 100 mg Famotidine (Pepcid) 20 mg PO BID [facility] Last Admin: 07/06/15 10:41 Dose: 20 mg Fosphenytoin Sodium 100 mg/ (Dextrose) 52 mls @ 100 mls/hr IV Q8H [facility] Last Admin: 07/06/15 11:37 Dose: 100 mls/hr Lisinopril (Zestril) 5 mg PO DAILY [facility] Last Admin: 07/06/15 10:41 Dose: 5 mg Polyethylene Glycol (Miralax) 17 gm PO DAILY [facility] Last Admin: 07/06/15 10:41 Dose: 17 gm - Constitutional Appears: Chronically Ill - Head Exam Head Exam: NORMAL INSPECTION - Eye Exam Eye Exam: PERRL Pupil Exam: NORMAL ACCOMODATION. absent: Unequal - ENT Exam ENT Exam: Mucous Membranes Moist - Respiratory Exam Respiratory Exam: Clear to PA & Lateral, NORMAL BREATHING PATTERN. absent: Rales, Rhonchi, Wheezes Additional comments: trach in place no bleeding or drainage - Cardiovascular Exam Cardiovascular Exam: REGULAR RHYTHM, +S1, +S2 - GI/Abdominal Exam GI & Abdominal Exam: Normal Bowel Sounds, Soft. absent: Distended, Firm Additional comments: peg in place no bleeding or drainage - Extremities Exam Extremities exam: pedal pulses present. absent: pedal edema - Neurological Exam Neurological exam: Altered - Skin Skin Exam: Dry, Intact, Normal Color Assessment/Plan (1) Transaminitis Current Visit: Yes Status: Acute Comment: chronically high LFTs 07/05: AST 135, ALT 194, ALP 162 stable Monitor CMP every other day (2) Respiratory failure Current Visit: Yes Status: Acute Comment: [id number] depedence unable to wean - (trial on 06/27) Dr. Salgado - Pulmonology - help very much appreciated (3) Anoxic encephalopathy Current Visit: Yes Status: Acute Comment: clinical status unchanged monitor for changes Patient in persistent vegatative state Condition discussed with with daughter on 06/29, All study results discussed with daughter 06/28: cerebral flow scan with persistent flow in posterior aspect of brain, no flow in majority of supratentorial brain (please see full report) Patient in persistent vegatative state as per neuro Patient with PEG and Trach Cont fosphenytoin 06/27: Reconsulted Dr. Garcia - help very much appreciated EEG and Cerebral flow scan ordered -f/u resultes s/p PEG and trach Monitor 06/25: No changes, decorticate posture; goal rate of tube feeding set to 60mls/ hour S/p trach and peg placement 06/24:No acute changes. Gave Thorazine 25mg IM to control hiccups. S/P trach and PEG placement, POD#4. 06/22 Spoke with family about transporationt to [place], family requested initial reports from admission. Patient is given 25mg of IM Thorazine for hiccup like movements. 06/21: S/P Trach and PEG. POD #1 Waiting for placement Transfer out of ICU today Head CT (06/20) - Global ischemia. Diffuse loss of lester white matter differentiation. This is most likely the results of an anoxic event such as cardiac arrest. 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 No evidence of downward herniation or midline shift. Most likely due to cardiac arrest Family still wants full code. Intubated Unresponsive to painful stimuli Palliative care on case (4) CAD (coronary artery disease) Current Visit: Yes Status: Acute Comment: s/p cardiac cath with stenting Continue Plavix 75mg PO daily Continue Vasotec 2.5 mg PO daily Continue ASA 325mg PO daily Statin held secondary to elevated LFTs (5) STEMI (ST elevation myocardial infarction) Current Visit: Yes Status: Acute Comment: Continue Plavix 75mg PO daily Continue ASA 325mg PO daily Continue lisinopril 5mg PO daily Monitor (6) Seizures Current Visit: Yes Status: Acute Comment: Dr. Garcia on case-help appreciated likely secondary to anoxic brain injury Cont Fosphenytoin 100mg IVP Q8 Continue to monitor for seizure activity (7) Prophylactic measure Current Visit: Yes Status: Acute Comment: Pepcid 20 mg PO q12 SCD's Plavix Miralax Colace BID <Amandeep Chavis H - Last Filed: 07/06/15 14:54> Objective - Vital Signs/Intake and Output Vital Signs (last 24 hours): Vital Signs - 24 hr 07/05/15 07/06/15 21:41 05:09 Temperature 97.7 F 98 F Pulse Rate 100 H 20 L Respiratory 19 20 Rate Blood Pressure 109/68 118/74 O2 Sat by Pulse 98 100 Oximetry Intake and Output (last 12 hours): Intake & Output 07/05/15 07/06/15 07/06/15 18:59 06:59 18:59 Output Total 250 500 Balance -250 -500 Weight 151 lb Output: Urine 250 500 Urethral (Yoo) 250 500 Other: Voiding Method Indwelling Catheter Indwelling Catheter Indwelling Catheter - Medications Medications: Current Medications Aspirin (Aspirin) 325 mg PO DAILY [facility] Last Admin: 07/06/15 10:41 Dose: 325 mg Clopidogrel Bisulfate (Plavix) 75 mg PO DAILY [facility] Last Admin: 07/06/15 10:41 Dose: 75 mg Docusate Sodium (Colace Liquid) 100 mg PEG BID [facility] Last Admin: 07/06/15 10:41 Dose: 100 mg Famotidine (Pepcid) 20 mg PO BID [facility] Last Admin: 07/06/15 10:41 Dose: 20 mg Fosphenytoin Sodium 100 mg/ (Dextrose) 52 mls @ 100 mls/hr IV Q8H [facility] Last Admin: 07/06/15 11:37 Dose: 100 mls/hr Lisinopril (Zestril) 5 mg PO DAILY [facility] Last Admin: 07/06/15 10:41 Dose: 5 mg Polyethylene Glycol (Miralax) 17 gm PO DAILY [facility] Last Admin: 07/06/15 10:41 Dose: 17 gm Assessment/Plan (1) Respiratory failure Current Visit: Yes Status: Acute Comment: [id number] depedence unable to wean - (trial on 06/27) Dr. Salgado - Pulmonology - help very much appreciated (2) Anoxic encephalopathy Current Visit: Yes Status: Acute Comment: clinical status unchanged monitor for changes Patient in persistent vegatative state Condition discussed with with daughter on 06/29, All study results discussed with daughter 06/28: cerebral flow scan with persistent flow in posterior aspect of brain, no flow in majority of supratentorial brain (please see full report) Patient in persistent vegatative state as per neuro Patient with PEG and Trach Cont fosphenytoin 06/27: Reconsulted Dr. Garcia - help very much appreciated EEG and Cerebral flow scan ordered -f/u resultes s/p PEG and trach Monitor 06/25: No changes, decorticate posture; goal rate of tube feeding set to 60mls/ hour S/p trach and peg placement 06/24:No acute changes. Gave Thorazine 25mg IM to control hiccups. S/P trach and PEG placement, POD#4. 06/22 Spoke with family about transporationt to [place], family requested initial reports from admission. Patient is given 25mg of IM Thorazine for hiccup like movements. 06/21: S/P Trach and PEG. POD #1 Waiting for placement Transfer out of ICU today Head CT (06/20) - Global ischemia. Diffuse loss of lester white matter differentiation. This is most likely the results of an anoxic event such as cardiac arrest. 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 No evidence of downward herniation or midline shift. Most likely due to cardiac arrest Family still wants full code. Intubated Unresponsive to painful stimuli Palliative care on case (3) STEMI (ST elevation myocardial infarction) Current Visit: Yes Status: Acute Comment: Continue Plavix 75mg PO daily Continue ASA 325mg PO daily Continue lisinopril 5mg PO daily Monitor (4) Cardiac arrest Current Visit: Yes Status: Acute Comment: S/P V-Tach arrest Continue Plavix 75mg POdaily Continue amiodarone 200mg PO daily Continue ASA 325mg PO daily Continue enalapril 2.5mg PO daily Monitor (5) Seizures Current Visit: Yes Status: Acute Comment: Dr. Garcia on case-help appreciated likely secondary to anoxic brain injury Cont Fosphenytoin 100mg IVP Q8 Continue to monitor for seizure activity (6) Prophylactic measure Current Visit: Yes Status: Acute Comment: Pepcid 20 mg PO q12 SCD's Plavix Miralax Colace BID Attending/Attestation - Attestation I have personally seen and examined this patient.: Yes I have fully participated in the care of the patient.: Yes I have reviewed all pertinent clinical information: Yes Notes (Text): 07/06/15 14:53 Medical Attending: agree with the above note by the resident. Patient seen and examined by me. No change in situation.
--- NOTE | 2015-07-07 02:09 | CP.PCM.PN ---
<MarinelliScout - Last Filed: 07/07/15 02:06> Subjective - Subjective Subjective: Pt seen and examined at bedside. Unresponsive and on vent. No acute events. Review of Systems - Review of Systems Systems not reviewed;Unavailable: Acuity of Condition Objective - Vital Signs/Intake and Output Vital Signs (last 24 hours): Vital Signs - 24 hr 07/06/15 07/06/15 07/06/15 05:09 15:05 21:33 Temperature 98 F 98.1 F 98.8 F Pulse Rate 20 L 57 L 66 Respiratory 20 16 18 Rate Blood Pressure 118/74 100/67 112/73 O2 Sat by Pulse 100 100 99 Oximetry Intake and Output (last 12 hours): Intake & Output 07/06/15 07/06/15 07/07/15 06:59 18:59 06:59 Intake Total 530 Output Total 500 400 600 Balance -500 130 -600 Weight 151 lb Intake: Intake, IV Amount 50 Right Forearm 50 Tube Feeding 480 Output: Urine 500 400 600 Urethral (Yoo) 500 400 600 Other: Voiding Method Indwelling Catheter Indwelling Catheter - Medications Medications: Current Medications Aspirin (Aspirin) 325 mg PO DAILY [facility] Last Admin: 07/06/15 10:41 Dose: 325 mg Clopidogrel Bisulfate (Plavix) 75 mg PO DAILY [facility] Last Admin: 07/06/15 10:41 Dose: 75 mg Docusate Sodium (Colace Liquid) 100 mg PEG BID [facility] Last Admin: 07/06/15 17:27 Dose: 100 mg Famotidine (Pepcid) 20 mg PO BID [facility] Last Admin: 07/06/15 17:27 Dose: 20 mg Fosphenytoin Sodium 100 mg/ (Dextrose) 52 mls @ 100 mls/hr IV Q8H [facility] Last Admin: 07/06/15 21:51 Dose: 100 mls/hr Lisinopril (Zestril) 5 mg PO DAILY [facility] Last Admin: 07/06/15 10:41 Dose: 5 mg Polyethylene Glycol (Miralax) 17 gm PO DAILY [facility] Last Admin: 07/06/15 10:41 Dose: 17 gm - Constitutional Appears: Non-toxic, No Acute Distress - Head Exam Head Exam: ATRAUMATIC - Respiratory Exam Respiratory Exam: Clear to PA & Lateral, NORMAL BREATHING PATTERN Additional comments: Trach to vent. - Cardiovascular Exam Cardiovascular Exam: REGULAR RHYTHM, +S1, +S2. absent: Gallop, Rubs - GI/Abdominal Exam GI & Abdominal Exam: Normal Bowel Sounds Additional comments: PEG in place. - Neurological Exam Neurological exam: Altered Assessment/Plan (1) Anoxic encephalopathy Current Visit: Yes Status: Acute Comment: clinical status unchanged monitor for changes Patient in persistent vegatative state Condition discussed with with daughter on 06/29, All study results discussed with daughter 06/28: cerebral flow scan with persistent flow in posterior aspect of brain, no flow in majority of supratentorial brain (please see full report) Patient in persistent vegatative state as per neuro Patient with PEG and Trach Cont fosphenytoin 06/27: Reconsulted Dr. Garcia - help very much appreciated EEG and Cerebral flow scan ordered -f/u resultes s/p PEG and trach Monitor 06/25: No changes, decorticate posture; goal rate of tube feeding set to 60mls/ hour S/p trach and peg placement 06/24:No acute changes. Gave Thorazine 25mg IM to control hiccups. S/P trach and PEG placement, POD#4. 06/22 Spoke with family about transporationt to [place], family requested initial reports from admission. Patient is given 25mg of IM Thorazine for hiccup like movements. 06/21: S/P Trach and PEG. POD #1 Waiting for placement Transfer out of ICU today Head CT (06/20) - Global ischemia. Diffuse loss of lester white matter differentiation. This is most likely the results of an anoxic event such as cardiac arrest. 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 No evidence of downward herniation or midline shift. Most likely due to cardiac arrest Family still wants full code. Intubated Unresponsive to painful stimuli Palliative care on case (2) Respiratory failure Current Visit: Yes Status: Acute Comment: [id number] depedence unable to wean - (trial on 06/27) Dr. Salgado - Pulmonology - help very much appreciated (3) Prophylactic measure Current Visit: Yes Status: Acute Comment: Pepcid 20 mg PO q12 SCD's Plavix Miralax Colace BID <Amandeep Chavis H - Last Filed: 07/07/15 08:28> Objective - Vital Signs/Intake and Output Vital Signs (last 24 hours): Vital Signs - 24 hr 07/06/15 07/06/15 07/07/15 15:05 21:33 05:00 Temperature 98.1 F 98.8 F 97.6 F Pulse Rate 57 L 66 70 Respiratory 16 18 16 Rate Blood Pressure 100/67 112/73 104/68 O2 Sat by Pulse 100 99 100 Oximetry Intake and Output (last 12 hours): Intake & Output 07/06/15 07/07/15 07/07/15 18:59 06:59 18:59 Intake Total 530 Output Total 400 850 Balance 130 -850 Intake: Intake, IV Amount 50 Right Forearm 50 Tube Feeding 480 Output: Urine 400 850 Urethral (Yoo) 400 850 Other: Voiding Method Indwelling Catheter Indwelling Catheter - Medications Medications: Current Medications Aspirin (Aspirin) 325 mg PO DAILY [facility] Last Admin: 07/06/15 10:41 Dose: 325 mg Clopidogrel Bisulfate (Plavix) 75 mg PO DAILY [facility] Last Admin: 07/06/15 10:41 Dose: 75 mg Docusate Sodium (Colace Liquid) 100 mg PEG BID [facility] Last Admin: 07/06/15 17:27 Dose: 100 mg Famotidine (Pepcid) 20 mg PO BID [facility] Last Admin: 07/06/15 17:27 Dose: 20 mg Fosphenytoin Sodium 100 mg/ (Dextrose) 52 mls @ 100 mls/hr IV Q8H [facility] Last Admin: 07/07/15 04:05 Dose: 100 mls/hr Lisinopril (Zestril) 5 mg PO DAILY [facility] Last Admin: 07/06/15 10:41 Dose: 5 mg Polyethylene Glycol (Miralax) 17 gm PO DAILY [facility] Last Admin: 07/06/15 10:41 Dose: 17 gm Assessment/Plan (1) Respiratory failure Current Visit: Yes Status: Acute Comment: [id number] depedence unable to wean - (trial on 06/27) Dr. Salgado - Pulmonology - help very much appreciated (2) Anoxic encephalopathy Current Visit: Yes Status: Acute Comment: clinical status unchanged monitor for changes Patient in persistent vegatative state Condition discussed with with daughter on 06/29, All study results discussed with daughter 06/28: cerebral flow scan with persistent flow in posterior aspect of brain, no flow in majority of supratentorial brain (please see full report) Patient in persistent vegatative state as per neuro Patient with PEG and Trach Cont fosphenytoin 06/27: Reconsulted Dr. Garcia - help very much appreciated EEG and Cerebral flow scan ordered -f/u resultes s/p PEG and trach Monitor 06/25: No changes, decorticate posture; goal rate of tube feeding set to 60mls/ hour S/p trach and peg placement /:No acute changes. Gave Thorazine 25mg IM to control hiccups. S/P trach and PEG placement, POD#4. 06/22 Spoke with family about transporationt to [place], family requested initial reports from admission. Patient is given 25mg of IM Thorazine for hiccup like movements. 06/21: S/P Trach and PEG. POD #1 Waiting for placement Transfer out of ICU today Head CT (06/20) - Global ischemia. Diffuse loss of lester white matter differentiation. This is most likely the results of an anoxic event such as cardiac arrest. 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 No evidence of downward herniation or midline shift. Most likely due to cardiac arrest Family still wants full code. Intubated Unresponsive to painful stimuli Palliative care on case (3) STEMI (ST elevation myocardial infarction) Current Visit: Yes Status: Acute Comment: Continue Plavix 75mg PO daily Continue ASA 325mg PO daily Continue lisinopril 5mg PO daily Monitor (4) Cardiac arrest Current Visit: Yes Status: Acute Comment: S/P V-Tach arrest Continue Plavix 75mg POdaily Continue amiodarone 200mg PO daily Continue ASA 325mg PO daily Continue enalapril 2.5mg PO daily Monitor (5) Seizures Current Visit: Yes Status: Acute Comment: Dr. Garcia on case-help appreciated likely secondary to anoxic brain injury Cont Fosphenytoin 100mg IVP Q8 Continue to monitor for seizure activity (6) Prophylactic measure Current Visit: Yes Status: Acute Comment: Pepcid 20 mg PO q12 SCD's Plavix Miralax Colace BID Attending/Attestation - Attestation I have personally seen and examined this patient.: Yes I have fully participated in the care of the patient.: Yes I have reviewed all pertinent clinical information: Yes Notes (Text): 07/07/15 08:27 Medical Attending: As above. Agree with the above note by the resident. No change from the previous situation. Thank you Amandeep Chavis
[2015-07-07] MEDS: Fosphenytoin 100 MG in Dextrose 5% In Water 50 ML IV SCH ×3 (04:05→20:30)
[2015-07-07 08:25] LABS: BASO % 0.4 % (0.0-2.0); EOS # 0.5 K/uL (0.0-0.7); EOS % 4.6 % (0.0-4.0); HEMOGLOBIN 11.3 g/dL (12.0-18.0); LYMPH # 1.2 K/uL (1.0-4.3); LYMPH % 10.4 % (20.0-40.0); MEAN CELL VOLUME 92.2 fL (80.0-94.0); MEAN CORPUSCULAR HEMOGLOBIN 30.1 pg (27.0-31.0); MEAN CORPUSCULAR HGB CONC 32.7 g/dL (33.0-37.0); MEAN PLATELET VOLUME 7.9 fL (7.2-11.7); MONO # 0.8 K/uL (0.0-0.8); NEUT # 9.2 K/uL (1.8-7.0); NEUT % 77.6 % (50.0-75.0); RBC 3.76 Mil/uL (4.40-5.90); RED CELL DISTRIBUTION WIDTH 14.3 % (11.5-14.5); WHITE BLOOD COUNT 11.8 K/uL (4.8-10.8)
[2015-07-07 08:56] LABS: ALBUMIN 3.1 g/dL (3.5-5.0)
[2015-07-07 08:59] LABS: ALB/GLOB RATIO 0.7 (1.0-2.1); ALT/SGPT 132 U/L (21-72); AST/SGOT 103 U/L (17-59); BLOOD UREA NITROGEN 19 mg/dL (9-20); GFR NON-AFRICAN AMERICAN > 60
[2015-07-07 09:00] LABS: CALCIUM 8.7 mg/dL (8.4-10.2)
[2015-07-07] MEDS: POLYETHYLENE GLYCOL 3350 17 GM/Dose PACKET PO SCH (10:30)
[2015-07-08] MEDS: Fosphenytoin 100 MG in Dextrose 5% In Water 50 ML IV SCH ×3 (04:00→19:56)
--- NOTE | 2015-07-08 05:59 | CP.PCM.PN ---
<Scout Marinelli - Last Filed: 07/08/15 05:57> Subjective - Subjective Subjective: Pt was seen and examined at bedside. Pt waved his arms and moaned when abdomen was palpated. Per nurse pt started to make spontaneous movements recently. Review of Systems - Review of Systems Systems not reviewed;Unavailable: Acuity of Condition Objective - Vital Signs/Intake and Output Vital Signs (last 24 hours): Vital Signs - 24 hr 07/07/15 07/07/15 07/07/15 14:00 20:00 21:46 Temperature 96.3 F L 97.3 F L Pulse Rate 69 67 67 Respiratory 20 18 Rate Blood Pressure 93/60 L 105/67 O2 Sat by Pulse 100 100 Oximetry Intake and Output (last 12 hours): Intake & Output 07/07/15 07/07/15 07/08/15 06:59 18:59 06:59 Intake Total 480 Output Total 950 275 500 Balance -470 275 500 Intake: Tube Feeding 480 Output: Urine 950 275 500 Urethral (Yoo) 950 275 500 Other: Voiding Method Indwelling Catheter # Bowel Movements 0 - Medications Medications: Current Medications Aspirin (Aspirin) 325 mg PO DAILY [facility] Last Admin: 07/07/15 10:30 Dose: 325 mg Clopidogrel Bisulfate (Plavix) 75 mg PO DAILY [facility] Last Admin: 07/07/15 10:30 Dose: 75 mg Docusate Sodium (Colace Liquid) 100 mg PEG BID [facility] Last Admin: 07/07/15 17:36 Dose: 100 mg Famotidine (Pepcid) 20 mg PO BID [facility] Last Admin: 07/07/15 17:36 Dose: 20 mg Fosphenytoin Sodium 100 mg/ (Dextrose) 52 mls @ 100 mls/hr IV Q8H [facility] Last Admin: 07/08/15 04:00 Dose: 100 mls/hr Lisinopril (Zestril) 5 mg PO DAILY [facility] Last Admin: 07/07/15 10:30 Dose: 5 mg Polyethylene Glycol (Miralax) 17 gm PO DAILY [facility] Last Admin: 07/07/15 10:30 Dose: 17 gm - Labs Labs (last 24 hours): Laboratory Results - last 24 hr 07/07/15 08:10 WBC 11.8 H RBC 3.76 L Hgb 11.3 L Hct 34.7 L MCV 92.2 MCH 30.1 MCHC 32.7 L RDW 14.3 Plt Count 312 MPV 7.9 Neut % (Auto) 77.6 H Lymph % (Auto) 10.4 L [place] % (Auto) 7.0 Eos % (Auto) 4.6 H Baso % (Auto) 0.4 Neut # 9.2 H Lymph # 1.2 [place] # 0.8 Eos # 0.5 Baso # 0.0 Sodium 139 Potassium 3.9 Chloride 99 Carbon Dioxide 30 Anion Gap 14 BUN 19 Creatinine 0.7 L Est GFR ( Amer) > 60 Est GFR (Non-Af Amer) > 60 Random Glucose 113 H Calcium 8.7 Phosphorus 3.4 Magnesium 2.2 Total Bilirubin 0.3 AST 103 H D ALT 132 H D Alkaline Phosphatase 163 H Total Protein 7.5 Albumin 3.1 L Globulin 4.4 H Albumin/Globulin Ratio 0.7 L - Constitutional Appears: Non-toxic, No Acute Distress - Head Exam Head Exam: NORMAL INSPECTION - Eye Exam Eye Exam: PERRL Pupil Exam: PERRL - Respiratory Exam Respiratory Exam: Clear to PA & Lateral, NORMAL BREATHING PATTERN. absent: Rales, Rhonchi, Wheezes - Cardiovascular Exam Cardiovascular Exam: REGULAR RHYTHM, +S1, +S2. absent: Gallop, Rubs - GI/Abdominal Exam GI & Abdominal Exam: Normal Bowel Sounds, Soft - Skin Skin Exam: Normal Color Assessment/Plan (1) Anoxic encephalopathy Current Visit: Yes Status: Acute Comment: clinical status unchanged monitor for changes Patient in persistent vegatative state Condition discussed with with daughter on 06/29, All study results discussed with daughter 06/28: cerebral flow scan with persistent flow in posterior aspect of brain, no flow in majority of supratentorial brain (please see full report) Patient in persistent vegatative state as per neuro Patient with PEG and Trach Cont fosphenytoin 06/27: Reconsulted Dr. Garcia - help very much appreciated EEG and Cerebral flow scan ordered -f/u resultes s/p PEG and trach Monitor 06/25: No changes, decorticate posture; goal rate of tube feeding set to 60mls/ hour S/p trach and peg placement 06/24:No acute changes. Gave Thorazine 25mg IM to control hiccups. S/P trach and PEG placement, POD#4. 06/22 Spoke with family about transporationt to [place], family requested initial reports from admission. Patient is given 25mg of IM Thorazine for hiccup like movements. 06/21: S/P Trach and PEG. POD #1 Waiting for placement Transfer out of ICU today Head CT (06/20) - Global ischemia. Diffuse loss of lester white matter differentiation. This is most likely the results of an anoxic event such as cardiac arrest. 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 No evidence of downward herniation or midline shift. Most likely due to cardiac arrest Family still wants full code. Intubated Unresponsive to painful stimuli Palliative care on case (2) Respiratory failure Current Visit: Yes Status: Acute Comment: [id number] depedence unable to wean - (trial on 06/27) Dr. Salgado - Pulmonology - help very much appreciated (3) Prophylactic measure Current Visit: Yes Status: Acute Comment: Pepcid 20 mg PO q12 SCD's Plavix Miralax Colace BID <Amandeep Chavis - Last Filed: 07/08/15 09:24> Objective - Vital Signs/Intake and Output Vital Signs (last 24 hours): Vital Signs - 24 hr 07/07/15 07/07/15 07/07/15 14:00 20:00 21:46 Temperature 96.3 F L 97.3 F L Pulse Rate 69 67 67 Respiratory 20 18 Rate Blood Pressure 93/60 L 105/67 O2 Sat by Pulse 100 100 Oximetry 07/08/15 06:13 Temperature 97.7 F Pulse Rate 60 Respiratory 20 Rate Blood Pressure 128/77 O2 Sat by Pulse 100 Oximetry Intake and Output (last 12 hours): Intake & Output 07/07/15 07/08/15 07/08/15 18:59 06:59 18:59 Intake Total 580 Output Total 275 800 Balance -275 -220 Intake: Intake, IV Amount 100 Right Forearm 100 Tube Feeding 480 Output: Urine 275 800 Urethral (Yoo) 275 800 Other 0 Other: # Bowel Movements 0 0 - Medications Medications: Current Medications Aspirin (Aspirin) 325 mg PO DAILY [facility] Last Admin: 07/07/15 10:30 Dose: 325 mg Clopidogrel Bisulfate (Plavix) 75 mg PO DAILY [facility] Last Admin: 07/07/15 10:30 Dose: 75 mg Docusate Sodium (Colace Liquid) 100 mg PEG BID [facility] Last Admin: 07/07/15 17:36 Dose: 100 mg Famotidine (Pepcid) 20 mg PO BID [facility] Last Admin: 07/07/15 17:36 Dose: 20 mg Fosphenytoin Sodium 100 mg/ (Dextrose) 52 mls @ 100 mls/hr IV Q8H [facility] Last Admin: 07/08/15 04:00 Dose: 100 mls/hr Lisinopril (Zestril) 5 mg PO DAILY [facility] Last Admin: 07/07/15 10:30 Dose: 5 mg Polyethylene Glycol (Miralax) 17 gm PO DAILY [facility] Last Admin: 07/07/15 10:30 Dose: 17 gm - Labs Labs (last 24 hours): Laboratory Results - last 24 hr 07/08/15 07:34 WBC 10.2 RBC 3.75 L Hgb 11.6 L Hct 35.0 MCV 93.4 MCH 30.8 MCHC 33.0 RDW 14.5 Plt Count 290 MPV 8.0 Sodium 139 Potassium 4.0 Chloride 100 Carbon Dioxide 31 H Anion Gap 12 BUN 19 Creatinine 0.6 L Est GFR ( Amer) > 60 Est GFR (Non-Af Amer) > 60 Random Glucose 94 Calcium 8.3 L Phosphorus 3.9 Magnesium 2.3 Assessment/Plan (1) Respiratory failure Current Visit: Yes Status: Acute Comment: [id number] depedence unable to wean - (trial on 06/27) Dr. Salgado - Pulmonology - help very much appreciated (2) Anoxic encephalopathy Current Visit: Yes Status: Acute Comment: clinical status unchanged monitor for changes Patient in persistent vegatative state Condition discussed with with daughter on 06/29, All study results discussed with daughter 06/28: cerebral flow scan with persistent flow in posterior aspect of brain, no flow in majority of supratentorial brain (please see full report) Patient in persistent vegatative state as per neuro Patient with PEG and Trach Cont fosphenytoin 06/27: Reconsulted Dr. Garcia - help very much appreciated EEG and Cerebral flow scan ordered -f/u resultes s/p PEG and trach Monitor 3: No changes, decorticate posture; goal rate of tube feeding set to 60mls/ hour S/p trach and peg placement 8/2:No acute changes. Gave Thorazine 25mg IM to control hiccups. S/P trach and PEG placement, POD#4. 06/22 Spoke with family about transporationt to [place], family requested initial reports from admission. Patient is given 25mg of IM Thorazine for hiccup like movements. 06/21: S/P Trach and PEG. POD #1 Waiting for placement Transfer out of ICU today Head CT (06/20) - Global ischemia. Diffuse loss of lester white matter differentiation. This is most likely the results of an anoxic event such as cardiac arrest. 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 No evidence of downward herniation or midline shift. Most likely due to cardiac arrest Family still wants full code. Intubated Unresponsive to painful stimuli Palliative care on case (3) STEMI (ST elevation myocardial infarction) Current Visit: Yes Status: Acute Comment: Continue Plavix 75mg PO daily Continue ASA 325mg PO daily Continue lisinopril 5mg PO daily Monitor (4) Cardiac arrest Current Visit: Yes Status: Acute Comment: S/P V-Tach arrest Continue Plavix 75mg POdaily Continue amiodarone 200mg PO daily Continue ASA 325mg PO daily Continue enalapril 2.5mg PO daily Monitor (5) Seizures Current Visit: Yes Status: Acute Comment: Dr. Garcia on case-help appreciated likely secondary to anoxic brain injury Cont Fosphenytoin 100mg IVP Q8 Continue to monitor for seizure activity (6) Prophylactic measure Current Visit: Yes Status: Acute Comment: Pepcid 20 mg PO q12 SCD's Plavix Miralax Colace BID Attending/Attestation - Attestation I have personally seen and examined this patient.: Yes I have fully participated in the care of the patient.: Yes I have reviewed all pertinent clinical information: Yes Notes (Text): 07/08/15 09:24 Medical Attending: No acute change from before. Situation remains the same. Agree with the above note by resident. Amandeep Chavis
[2015-07-08 07:45] LABS: HEMOGLOBIN 11.6 g/dL (12.0-18.0); MEAN CELL VOLUME 93.4 fL (80.0-94.0); MEAN CORPUSCULAR HEMOGLOBIN 30.8 pg (27.0-31.0); RBC 3.75 Mil/uL (4.40-5.90); RED CELL DISTRIBUTION WIDTH 14.5 % (11.5-14.5); WHITE BLOOD COUNT 10.2 K/uL (4.8-10.8)
[2015-07-08 08:03] LABS: BLOOD UREA NITROGEN 19 mg/dL (9-20); GFR NON-AFRICAN AMERICAN > 60
[2015-07-08 08:04] LABS: CALCIUM 8.3 mg/dL (8.4-10.2)
[2015-07-08] MEDS: POLYETHYLENE GLYCOL 3350 17 GM/Dose PACKET PO SCH (10:25)
[2015-07-09] MEDS: Fosphenytoin 100 MG in Dextrose 5% In Water 50 ML IV SCH ×3 (04:57→20:30)
--- NOTE | 2015-07-09 09:19 | CP.PCM.PN ---
<Judith Baires H - Last Filed: 07/09/15 09:15> Subjective - Subjective Subjective: Medicine Note PGY1: Patient seen and examined at bedside this AM. Patient unresponsive to verbal and painful stimuli after anoxic brain injury post [place]. Patient moves arms and torso spontaneously for past few weeks. Patient opens and closes mouth spontaneously. Awaiting placement. Review of Systems - Review of Systems Systems not reviewed;Unavailable: Altered Mental Status Objective - Vital Signs/Intake and Output Vital Signs (last 24 hours): Vital Signs - 24 hr 07/08/15 07/08/15 07/09/15 14:00 22:00 06:00 Temperature 97.1 F L 99.1 F 98.0 F Pulse Rate 74 67 62 Respiratory 18 16 16 Rate Blood Pressure 100/61 107/69 103/69 O2 Sat by Pulse 100 100 100 Oximetry Intake and Output (last 12 hours): Intake & Output 07/08/15 07/09/15 07/09/15 18:59 06:59 18:59 Intake Total 580 Output Total 175 750 Balance -175 -750 580 Weight 105 lb 3.2 oz Intake: Intake, IV Amount 100 Right Forearm 100 Tube Feeding 480 Output: Urine 175 750 Urethral (Yoo) 175 750 Other: # Bowel Movements 0 1 - Medications Medications: Current Medications Aspirin (Aspirin) 325 mg PO DAILY [facility] Last Admin: 07/08/15 10:25 Dose: 325 mg Clopidogrel Bisulfate (Plavix) 75 mg PO DAILY [facility] Last Admin: 07/08/15 10:25 Dose: 75 mg Docusate Sodium (Colace Liquid) 100 mg PEG BID [facility] Last Admin: 07/08/15 17:10 Dose: 100 mg Famotidine (Pepcid) 20 mg PO BID [facility] Last Admin: 07/08/15 17:10 Dose: 20 mg Fosphenytoin Sodium 100 mg/ (Dextrose) 52 mls @ 100 mls/hr IV Q8H [facility] Last Admin: 07/09/15 04:57 Dose: 100 mls/hr Lisinopril (Zestril) 5 mg PO DAILY [facility] Last Admin: 07/08/15 10:25 Dose: 5 mg Polyethylene Glycol (Miralax) 17 gm PO DAILY [facility] Last Admin: 07/08/15 10:25 Dose: 17 gm - Constitutional Appears: Chronically Ill - Head Exam Head Exam: NORMAL INSPECTION - Eye Exam Pupil Exam: PERRL - ENT Exam ENT Exam: Mucous Membranes Moist - Respiratory Exam Respiratory Exam: Clear to PA & Lateral, NORMAL BREATHING PATTERN, UNREMARKABLE Additional comments: trach in place no bleeding or draining - Cardiovascular Exam Cardiovascular Exam: REGULAR RHYTHM, +S1, +S2 - GI/Abdominal Exam GI & Abdominal Exam: Normal Bowel Sounds, Soft. absent: Distended, Firm Additional comments: peg in place no bleeding or drainage - Extremities Exam Extremities exam: pedal pulses present. absent: pedal edema - Neurological Exam Neurological exam: Altered - Skin Skin Exam: Normal Color Assessment/Plan (1) Transaminitis Current Visit: Yes Status: Acute Comment: chronically high LFTs 07/07: AST 103, ALT 132, ALP 163 stable Monitor CMP every other day (2) Respiratory failure Current Visit: Yes Status: Acute Comment: [id number] depedence unable to wean - (trial on 06/27) Dr. Salgado - Pulmonology - help very much appreciated (3) Anoxic encephalopathy Current Visit: Yes Status: Acute Comment: clinical status unchanged monitor for changes Patient in persistent vegatative state Condition discussed with with daughter on 06/29, All study results discussed with daughter 06/28: cerebral flow scan with persistent flow in posterior aspect of brain, no flow in majority of supratentorial brain (please see full report) Patient in persistent vegatative state as per neuro Patient with PEG and Trach Cont fosphenytoin 06/27: Reconsulted Dr. Garcia - help very much appreciated EEG and Cerebral flow scan ordered -f/u resultes s/p PEG and trach Monitor 06/25: No changes, decorticate posture; goal rate of tube feeding set to 60mls/ hour S/p trach and peg placement 06/24:No acute changes. Gave Thorazine 25mg IM to control hiccups. S/P trach and PEG placement, POD#4. 06/22 Spoke with family about transporationt to [place], family requested initial reports from admission. Patient is given 25mg of IM Thorazine for hiccup like movements. 06/21: S/P Trach and PEG. POD #1 Waiting for placement Transfer out of ICU today Head CT (06/20) - Global ischemia. Diffuse loss of lester white matter differentiation. This is most likely the results of an anoxic event such as cardiac arrest. 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 No evidence of downward herniation or midline shift. Most likely due to cardiac arrest Family still wants full code. Intubated Unresponsive to painful stimuli Palliative care on case (4) CAD (coronary artery disease) Current Visit: Yes Status: Acute Comment: s/p cardiac cath with stenting Continue Plavix 75mg PO daily Continue Vasotec 2.5 mg PO daily Continue ASA 325mg PO daily Statin held secondary to elevated LFTs (5) STEMI (ST elevation myocardial infarction) Current Visit: Yes Status: Acute Comment: Continue Plavix 75mg PO daily Continue ASA 325mg PO daily Continue lisinopril 5mg PO daily Monitor (6) Seizures Current Visit: Yes Status: Acute Comment: Dr. Garcia on case-help appreciated likely secondary to anoxic brain injury Cont Fosphenytoin 100mg IVP Q8 Continue to monitor for seizure activity (7) Prophylactic measure Current Visit: Yes Status: Acute Comment: Pepcid 20 mg PO q12 SCD's Plavix Miralax Colace BID <Wendi Mercedes R - Last Filed: 07/10/15 07:48> Subjective - Subjective Subjective: Medical Attending Note: Patient seen and examined by me 07/09/15 with resident. Agree with resident HPI/ Exam/A&P with appropriate additions and changes. Patient unresponsive to verbal and painful stimuli. Patient with some spontaneous movements of mouth and limbs. Patient afebrile. No family at bedside. Unable to obtain ROS from patient. Objective - Vital Signs/Intake and Output Vital Signs (last 24 hours): Vital Signs - 24 hr 07/09/15 07/09/15 07/09/15 14:31 20:00 21:35 Temperature 98.1 F 97.8 F Pulse Rate 57 L 57 L 60 Respiratory 20 24 Rate Blood Pressure 115/78 112/72 O2 Sat by Pulse 100 100 Oximetry 07/10/15 05:34 Temperature 99.5 F Pulse Rate 78 Respiratory 16 Rate Blood Pressure 104/71 O2 Sat by Pulse 99 Oximetry Intake and Output (last 12 hours): Intake & Output 07/09/15 07/10/15 07/10/15 18:59 06:59 18:59 Intake Total 580 900 Output Total 200 1050 Balance 380 -150 Weight 126 lb 111 lb Intake: Intake, IV Amount 100 100 Right Forearm 100 100 Tube Feeding 480 700 Other 100 Output: Urine 200 1050 Urethral (Yoo) 200 1050 Other: # Bowel Movements 1 0 - Medications Medications: Current Medications Aspirin (Aspirin) 325 mg PO DAILY [facility] Last Admin: 07/09/15 09:55 Dose: 325 mg Clopidogrel Bisulfate (Plavix) 75 mg PO DAILY [facility] Last Admin: 07/09/15 09:55 Dose: 75 mg Docusate Sodium (Colace Liquid) 100 mg PEG BID [facility] Last Admin: 07/09/15 18:11 Dose: 100 mg Famotidine (Pepcid) 20 mg PO BID [facility] Last Admin: 07/09/15 18:02 Dose: 20 mg Fosphenytoin Sodium 100 mg/ (Dextrose) 52 mls @ 100 mls/hr IV Q8H [facility] Last Admin: 07/10/15 04:00 Dose: 100 mls/hr Lisinopril (Zestril) 5 mg PO DAILY [facility] Last Admin: 07/09/15 09:55 Dose: 5 mg Polyethylene Glycol (Miralax) 17 gm PO DAILY [facility] Last Admin: 07/09/15 09:55 Dose: 17 gm - Constitutional Appears: No Acute Distress - Head Exam Head Exam: ATRAUMATIC, NORMOCEPHALIC - Eye Exam Eye Exam: absent: Scleral icterus - ENT Exam ENT Exam: Mucous Membranes Moist - Neck Exam Additional comments: trach in place - Respiratory Exam Respiratory Exam: absent: Rales, Rhonchi, Wheezes Additional comments: mechanical vent sounds - Cardiovascular Exam Cardiovascular Exam: REGULAR RHYTHM, +S1, +S2. absent: Diastolic murmur, Gallop , Rubs, Systolic Murmur - GI/Abdominal Exam GI & Abdominal Exam: Normal Bowel Sounds, Soft. absent: Distended Additional comments: PEG in place - Extremities Exam Extremities exam: pedal pulses present Additional comments: no edema appreciated - Neurological Exam Neurological exam: Altered. absent: Alert, Oriented x3 Additional comments: patient unresponsive to painful and verbal stimuli patient with spontaneous movement of mouth and limbs - Skin Skin Exam: Dry, Warm Assessment/Plan (1) Transaminitis Current Visit: Yes Status: Acute Comment: LFTs elevated F/u AM CMP monitor LFTs (2) Anoxic encephalopathy Current Visit: Yes Status: Acute Comment: Patient with spontaneous movements of mouth and limbs clinical status unchanged monitor for changes (3) Respiratory failure Current Visit: Yes Status: Acute Comment: [id number] depedent unable to wean thus far Dr. Damian - Pulmonology - help very much appreciated (4) Cardiac arrest Current Visit: Yes Status: Acute Comment: S/P V-Tach arrest Continue Plavix 75mg PO daily Continue lisinopril 5mg PO daily Continue ASA 325mg PO daily Monitor (5) STEMI (ST elevation myocardial infarction) Current Visit: Yes Status: Acute Comment: Continue Plavix 75mg PO daily Continue ASA 325mg PO daily Continue lisinopril 5mg PO daily Monitor (6) CAD (coronary artery disease) Current Visit: Yes Status: Acute Comment: s/p cardiac cath with stenting Continue Plavix 75mg PO daily Continue lisinopril 5mg PO daily Continue ASA 325mg PO daily Statin held secondary to elevated LFTs (7) Seizures Current Visit: Yes Status: Acute Comment: Dr. Garcia on case-help appreciated likely secondary to anoxic brain injury Cont Fosphenytoin 100mg IVP Q8 Monitor for seizure activity (8) Prophylactic measure Current Visit: Yes Status: Acute Comment: Pepcid 20 mg PO q12 SCD's Plavix Miralax Colace BID Attending/Attestation - Attestation I have personally seen and examined this patient.: Yes I have fully participated in the care of the patient.: Yes I have reviewed all pertinent clinical information: Yes
[2015-07-09] MEDS: POLYETHYLENE GLYCOL 3350 17 GM/Dose PACKET PO SCH (09:55)
[2015-07-10] MEDS: Fosphenytoin 100 MG in Dextrose 5% In Water 50 ML IV SCH ×3 (04:00→20:00)
[2015-07-10 08:10] LABS: BASO # 0.1 K/uL (0.0-0.2); BASO % 0.4 % (0.0-2.0); EOS # 0.6 K/uL (0.0-0.7); EOS % 5.2 % (0.0-4.0); HEMOGLOBIN 11.2 g/dL (12.0-18.0); LYMPH # 1.3 K/uL (1.0-4.3); LYMPH % 10.1 % (20.0-40.0); MEAN CELL VOLUME 93.5 fL (80.0-94.0); MEAN CORPUSCULAR HEMOGLOBIN 30.6 pg (27.0-31.0); MEAN CORPUSCULAR HGB CONC 32.8 g/dL (33.0-37.0); MEAN PLATELET VOLUME 8.2 fL (7.2-11.7); MONO # 0.9 K/uL (0.0-0.8); MONO % 7.1 % (0.0-10.0); NEUT # 9.6 K/uL (1.8-7.0); NEUT % 77.2 % (50.0-75.0); RBC 3.65 Mil/uL (4.40-5.90); RED CELL DISTRIBUTION WIDTH 14.5 % (11.5-14.5); WHITE BLOOD COUNT 12.4 K/uL (4.8-10.8)
[2015-07-10 08:31] LABS: ALBUMIN 3.1 g/dL (3.5-5.0)
[2015-07-10 08:34] LABS: ALB/GLOB RATIO 0.7 (1.0-2.1); AST/SGOT 92 U/L (17-59); BLOOD UREA NITROGEN 17 mg/dL (9-20); GFR NON-AFRICAN AMERICAN > 60
[2015-07-10 08:35] LABS: ALT/SGPT 118 U/L (21-72); CALCIUM 8.4 mg/dL (8.4-10.2)
[2015-07-10] MEDS: POLYETHYLENE GLYCOL 3350 17 GM/Dose PACKET PO SCH (10:14)
--- NOTE | 2015-07-10 10:18 | CP.PCM.PN ---
<Judith Baires H - Last Filed: 07/10/15 10:15> Subjective - Subjective Subjective: Medicine Note PGY1: Patient seen and examined at bedside this AM. Patient unresponsive to verbal and painful stimuli after anoxic brain injury post [place]. Patient moves arms and torso spontaneously for past few weeks. Patient opens and closes mouth spontaneously. Awaiting placement. Review of Systems - Review of Systems Systems not reviewed;Unavailable: Altered Mental Status Objective - Vital Signs/Intake and Output Vital Signs (last 24 hours): Vital Signs - 24 hr 07/09/15 07/09/15 07/09/15 14:31 20:00 21:35 Temperature 98.1 F 97.8 F Pulse Rate 57 L 57 L 60 Respiratory 20 24 Rate Blood Pressure 115/78 112/72 O2 Sat by Pulse 100 100 Oximetry 07/10/15 07/10/15 05:34 07:40 Temperature 99.5 F Pulse Rate 78 78 Respiratory 16 Rate Blood Pressure 104/71 O2 Sat by Pulse 99 Oximetry Intake and Output (last 12 hours): Intake & Output 07/09/15 07/10/15 07/10/15 18:59 06:59 18:59 Intake Total 580 900 Output Total 200 1050 Balance 380 -150 Weight 126 lb 111 lb Intake: Intake, IV Amount 100 100 Right Forearm 100 100 Tube Feeding 480 700 Other 100 Output: Urine 200 1050 Urethral (Baker) 200 1050 Other: # Bowel Movements 1 0 - Medications Medications: Current Medications Aspirin (Aspirin) 325 mg PO DAILY [facility] Last Admin: 07/09/15 09:55 Dose: 325 mg Clopidogrel Bisulfate (Plavix) 75 mg PO DAILY [facility] Last Admin: 07/09/15 09:55 Dose: 75 mg Docusate Sodium (Colace Liquid) 100 mg PEG BID [facility] Last Admin: 07/09/15 18:11 Dose: 100 mg Famotidine (Pepcid) 20 mg PO BID [facility] Last Admin: 07/09/15 18:02 Dose: 20 mg Fosphenytoin Sodium 100 mg/ (Dextrose) 52 mls @ 100 mls/hr IV Q8H [facility] Last Admin: 07/10/15 04:00 Dose: 100 mls/hr Lisinopril (Zestril) 5 mg PO DAILY [facility] Last Admin: 07/09/15 09:55 Dose: 5 mg Polyethylene Glycol (Miralax) 17 gm PO DAILY [facility] Last Admin: 07/09/15 09:55 Dose: 17 gm - Labs Labs (last 24 hours): Laboratory Results - last 24 hr 07/10/15 07:48 WBC 12.4 H RBC 3.65 L Hgb 11.2 L Hct 34.1 L MCV 93.5 MCH 30.6 MCHC 32.8 L RDW 14.5 Plt Count 297 MPV 8.2 Neut % (Auto) 77.2 H Lymph % (Auto) 10.1 L Gregory % (Auto) 7.1 Eos % (Auto) 5.2 H Baso % (Auto) 0.4 Neut # 9.6 H Lymph # 1.3 Gregory # 0.9 H Eos # 0.6 Baso # 0.1 Sodium 139 Potassium 3.8 Chloride 102 Carbon Dioxide 28 Anion Gap 13 BUN 17 Creatinine 0.6 L Est GFR ( Amer) > 60 Est GFR (Non-Af Amer) > 60 Random Glucose 98 Calcium 8.4 Phosphorus 3.6 Magnesium 2.1 Total Bilirubin 0.4 AST 92 H ALT 118 H Alkaline Phosphatase 154 H Total Protein 7.4 Albumin 3.1 L Globulin 4.3 H Albumin/Globulin Ratio 0.7 L - Constitutional Appears: Chronically Ill - Head Exam Head Exam: NORMAL INSPECTION - Eye Exam Pupil Exam: absent: Unequal - ENT Exam ENT Exam: Mucous Membranes Moist - Respiratory Exam Respiratory Exam: Clear to PA & Lateral, NORMAL BREATHING PATTERN Additional comments: trach in place, no bleeding, no drainage, dressing clean - Cardiovascular Exam Cardiovascular Exam: REGULAR RHYTHM, +S1, +S2 - GI/Abdominal Exam GI & Abdominal Exam: Normal Bowel Sounds, Soft. absent: Distended, Firm Additional comments: hiccup like movements peg in place - Exam Additional comments: baker draining urine - Extremities Exam Extremities exam: normal capillary refill, pedal pulses present. absent: pedal edema - Neurological Exam Neurological exam: Altered - Skin Skin Exam: Dry, Normal Color Assessment/Plan (1) Transaminitis Current Visit: Yes Status: Acute Comment: LFTs elevated 07/10: AST 92, ALT 118, ALP 154 trending down F/u AM CMP monitor LFTs (2) Respiratory failure Current Visit: Yes Status: Acute Comment: [id number] depedent unable to wean thus far Dr. Salgado - Pulmonology - help very much appreciated (3) Anoxic encephalopathy Current Visit: Yes Status: Acute Comment: Patient with spontaneous movements of mouth and limbs clinical status unchanged monitor for changes (4) CAD (coronary artery disease) Current Visit: Yes Status: Acute Comment: s/p cardiac cath with stenting Continue Plavix 75mg PO daily Continue lisinopril 5mg PO daily Continue ASA 325mg PO daily Statin held secondary to elevated LFTs (5) STEMI (ST elevation myocardial infarction) Current Visit: Yes Status: Acute Comment: Continue Plavix 75mg PO daily Continue ASA 325mg PO daily Continue lisinopril 5mg PO daily Monitor (6) Seizures Current Visit: Yes Status: Acute Comment: Dr. Garcia on case-help appreciated likely secondary to anoxic brain injury Cont Fosphenytoin 100mg IVP Q8 Monitor for seizure activity (7) Prophylactic measure Current Visit: Yes Status: Acute Comment: Pepcid 20 mg PO q12 SCD's Plavix Miralax Colace BID <Wendi Mercedes R - Last Filed: 07/10/15 21:33> Subjective - Subjective Subjective: Medical Attending Note: Patient seen and examined by me this AM with resident. Agree with resident HPI/ Exam/A&P with appropriate additions and changes. All new labs reviewed by me. Patient unresponsive to verbal and physical stimuli. Patient afebrile. Unable to obtain full ROS. Objective - Vital Signs/Intake and Output Vital Signs (last 24 hours): Vital Signs - 24 hr 07/09/15 07/10/15 07/10/15 21:35 05:34 07:40 Temperature 97.8 F 99.5 F Pulse Rate 60 78 78 Respiratory 24 16 Rate Blood Pressure 112/72 104/71 O2 Sat by Pulse 100 99 Oximetry 07/10/15 13:44 Temperature 97.5 F L Pulse Rate 78 Respiratory 16 Rate Blood Pressure 114/73 O2 Sat by Pulse 97 Oximetry Intake and Output (last 12 hours): Intake & Output 07/10/15 07/10/15 07/11/15 06:59 18:59 06:59 Intake Total 900 550 Output Total 1050 250 Balance -150 300 Weight 111 lb Intake: Intake, IV Amount 100 Right Forearm 100 Oral 0 Tube Feeding 700 550 Other 100 Output: Urine 1050 250 Urethral (Baker) 1050 250 Other: # Bowel Movements 0 0 - Medications Medications: Current Medications Aspirin (Aspirin) 325 mg PO DAILY [facility] Last Admin: 07/10/15 10:14 Dose: 325 mg Clopidogrel Bisulfate (Plavix) 75 mg PO DAILY [facility] Last Admin: 07/10/15 10:13 Dose: 75 mg Docusate Sodium (Colace Liquid) 100 mg PEG BID [facility] Last Admin: 07/10/15 17:39 Dose: 100 mg Famotidine (Pepcid) 20 mg PO BID [facility] Last Admin: 07/10/15 17:40 Dose: 20 mg Fosphenytoin Sodium 100 mg/ (Dextrose) 52 mls @ 100 mls/hr IV Q8H [facility] Last Admin: 07/10/15 20:00 Dose: 100 mls/hr Lisinopril (Zestril) 5 mg PO DAILY [facility] Last Admin: 07/10/15 10:14 Dose: 5 mg Polyethylene Glycol (Miralax) 17 gm PO DAILY [facility] Last Admin: 07/10/15 10:14 Dose: 17 gm - Labs Labs (last 24 hours): Laboratory Results - last 24 hr 07/10/15 07:48 WBC 12.4 H RBC 3.65 L Hgb 11.2 L Hct 34.1 L MCV 93.5 MCH 30.6 MCHC 32.8 L RDW 14.5 Plt Count 297 MPV 8.2 Neut % (Auto) 77.2 H Lymph % (Auto) 10.1 L Gregory % (Auto) 7.1 Eos % (Auto) 5.2 H Baso % (Auto) 0.4 Neut # 9.6 H Lymph # 1.3 Gregory # 0.9 H Eos # 0.6 Baso # 0.1 Sodium 139 Potassium 3.8 Chloride 102 Carbon Dioxide 28 Anion Gap 13 BUN 17 Creatinine 0.6 L Est GFR ( Amer) > 60 Est GFR (Non-Af Amer) > 60 Random Glucose 98 Calcium 8.4 Phosphorus 3.6 Magnesium 2.1 Total Bilirubin 0.4 AST 92 H ALT 118 H Alkaline Phosphatase 154 H Total Protein 7.4 Albumin 3.1 L Globulin 4.3 H Albumin/Globulin Ratio 0.7 L - Constitutional Appears: No Acute Distress, Chronically Ill - Head Exam Head Exam: ATRAUMATIC, NORMOCEPHALIC - Eye Exam Eye Exam: absent: Scleral icterus - ENT Exam ENT Exam: Mucous Membranes Moist - Neck Exam Additional comments: trach in place - Respiratory Exam Respiratory Exam: absent: Rales, Rhonchi, Wheezes Additional comments: mechanical vent sounds heard throughout - Cardiovascular Exam Cardiovascular Exam: REGULAR RHYTHM, +S1, +S2. absent: Diastolic murmur, Gallop , Rubs, Systolic Murmur - GI/Abdominal Exam GI & Abdominal Exam: Normal Bowel Sounds, Soft. absent: Distended Additional comments: PEG in place - Extremities Exam Extremities exam: pedal pulses present Additional comments: no c/c/e appreciated - Neurological Exam Neurological exam: Altered. absent: Alert Additional comments: unresponsive to verbal and physical stimuli spontaneous movements of mouth and limbs - Skin Skin Exam: Dry, Warm Assessment/Plan (1) Transaminitis Current Visit: Yes Status: Acute Comment: LFTs elevated 07/10: AST 92, ALT 118, ALP 154 trending down Monitor LFTs (2) Anoxic encephalopathy Current Visit: Yes Status: Acute Comment: Patient with spontaneous movements of mouth and limbs clinical status unchanged s/p trach and peg (3) Respiratory failure Current Visit: Yes Status: Acute Comment: [id number] depedent unable to wean Dr. Salgado - Pulmonology - help very much appreciated (4) Cardiac arrest Current Visit: Yes Status: Acute Comment: S/P V-Tach arrest Continue Plavix 75mg PO daily Continue ASA 325mg PO daily Continue lisinopril 5mg PO daily (5) STEMI (ST elevation myocardial infarction) Current Visit: Yes Status: Acute Comment: Continue Plavix 75mg PO daily Continue lisinopril 5mg PO daily Continue ASA 325mg PO daily (6) CAD (coronary artery disease) Current Visit: Yes Status: Acute Comment: s/p cardiac cath with stenting Continue Plavix 75mg PO daily Continue ASA 325mg PO daily Continue lisinopril 5mg PO daily Statin held secondary to elevated LFTs (7) Seizures Current Visit: Yes Status: Acute Comment: Dr. Garcia on case-help appreciated likely secondary to anoxic brain injury Continue Fosphenytoin 100mg IVP Q8 Continue to monitor for seizure activity (8) Prophylactic measure Current Visit: Yes Status: Acute Comment: Pepcid 20 mg PO q12 SCD's Plavix Miralax Colace BID - Date & Time Date: 07/10/15 Time: 21:25 Attending/Attestation - Attestation I have personally seen and examined this patient.: Yes I have fully participated in the care of the patient.: Yes I have reviewed all pertinent clinical information: Yes
[2015-07-11] MEDS: Fosphenytoin 100 MG in Dextrose 5% In Water 50 ML IV SCH ×3 (04:00→20:27)
[2015-07-11 08:53] LABS: HEPATITIS B SURFACE AG NEGATIVE (NEGATIVE)
[2015-07-11 08:58] LABS: HEPATITIS A IGM NEGATIVE (NEGATIVE)
[2015-07-11 09:00] LABS: HEPATITIS B CORE AB NEGATIVE (NEGATIVE)
[2015-07-11 09:10] LABS: HEPATITIS C ANTIBODY NEGATIVE (NEGATIVE)
--- NOTE | 2015-07-11 09:34 | CP.PCM.PN ---
<Judith Baires H - Last Filed: 07/11/15 09:32> Subjective - Subjective Subjective: PGY1 Medicine Note: Patient seen and examined at bedside this AM. Patient unresponsive to verbal and painful stimuli. PAtient opened and closed mouth multiple times. Patient in decerebrate posture. Awaiting placement. Review of Systems - Review of Systems Systems not reviewed;Unavailable: Altered Mental Status Objective - Vital Signs/Intake and Output Vital Signs (last 24 hours): Vital Signs - 24 hr 07/10/15 07/10/15 07/11/15 13:44 21:28 05:30 Temperature 97.5 F L 99.2 F 100 F H Pulse Rate 78 88 77 Respiratory 16 18 18 Rate Blood Pressure 114/73 103/69 104/69 O2 Sat by Pulse 97 99 97 Oximetry Intake and Output (last 12 hours): Intake & Output 07/10/15 07/11/15 07/11/15 18:59 06:59 18:59 Intake Total 550 900 Output Total 250 450 Balance 300 450 Intake: Intake, IV Amount 200 Right Forearm 100 Left Forearm 100 Oral 0 Tube Feeding 550 600 Other 100 Output: Urine 250 450 Urethral (Baker) 250 450 Other: # Bowel Movements 0 1 - Medications Medications: Current Medications Aspirin (Aspirin) 325 mg PO DAILY [facility] Last Admin: 07/10/15 10:14 Dose: 325 mg Clopidogrel Bisulfate (Plavix) 75 mg PO DAILY [facility] Last Admin: 07/10/15 10:13 Dose: 75 mg Docusate Sodium (Colace Liquid) 100 mg PEG BID [facility] Last Admin: 07/10/15 17:39 Dose: 100 mg Famotidine (Pepcid) 20 mg PO BID [facility] Last Admin: 07/10/15 17:40 Dose: 20 mg Fosphenytoin Sodium 100 mg/ (Dextrose) 52 mls @ 100 mls/hr IV Q8H [facility] Last Admin: 07/11/15 04:00 Dose: 100 mls/hr Lactulose (Enulose) 20 gm PEG ONCE ONE Stop: 07/11/15 09:31 Lisinopril (Zestril) 5 mg PO DAILY [facility] Last Admin: 07/10/15 10:14 Dose: 5 mg Polyethylene Glycol (Miralax) 17 gm PO DAILY [facility] Last Admin: 07/10/15 10:14 Dose: 17 gm - Labs Labs (last 24 hours): Laboratory Results - last 24 hr 07/11/15 07:31 Hepatitis A IgM Ab Negative Hep Bs Antigen Negative Hep B Core IgM Ab Negative Hepatitis C Antibody Negative - Constitutional Appears: Chronically Ill - Head Exam Head Exam: NORMAL INSPECTION - Eye Exam Eye Exam: PERRL - ENT Exam ENT Exam: Mucous Membranes Moist - Respiratory Exam Respiratory Exam: Clear to PA & Lateral, NORMAL BREATHING PATTERN Additional comments: trach to vent dependent dried blood on trach dressing - GI/Abdominal Exam GI & Abdominal Exam: Normal Bowel Sounds, Soft. absent: Distended, Firm Additional comments: peg in place, no guaze no bleeding or drainage - Exam Exam: NORMAL INSPECTION (baker in place - to be changed on thursday) - Extremities Exam Extremities exam: pedal pulses present. absent: pedal edema - Neurological Exam Neurological exam: Altered - Skin Skin Exam: Dry, Normal Color Assessment/Plan (1) Transaminitis Current Visit: Yes Status: Acute Comment: LFTs elevated 07/10: AST 92, ALT 118, ALP 154 trending down Hepatitis panel negative Monitor LFTs every other day (2) Respiratory failure Current Visit: Yes Status: Acute Comment: [id number] depedent unable to wean Dr. Salgado - Pulmonology - help very much appreciated (3) Anoxic encephalopathy Current Visit: Yes Status: Acute Comment: Patient with spontaneous movements of mouth and limbs clinical status unchanged s/p trach and peg (4) CAD (coronary artery disease) Current Visit: Yes Status: Acute Comment: s/p cardiac cath with stenting Continue Plavix 75mg PO daily Continue ASA 325mg PO daily Continue lisinopril 5mg PO daily Statin held secondary to elevated LFTs (5) STEMI (ST elevation myocardial infarction) Current Visit: Yes Status: Acute Comment: Continue Plavix 75mg PO daily Continue lisinopril 5mg PO daily Continue ASA 325mg PO daily (6) Seizures Current Visit: Yes Status: Acute Comment: Dr. Garcia on case-help appreciated likely secondary to anoxic brain injury Continue Fosphenytoin 100mg IVP Q8 Continue to monitor for seizure activity (7) Baker catheter in place Current Visit: Yes Status: Acute Comment: needs to be changed on 07/13 (8) Constipation Current Visit: Yes Status: Acute Comment: colace BID lactulose 20mg given today monitor for BM (9) Prophylactic measure Current Visit: Yes Status: Acute Comment: Pepcid 20 mg PO q12 SCD's Plavix Miralax Colace BID <Wendi Mercedes R - Last Filed: 07/11/15 16:40> Subjective - Subjective Subjective: Medical Attending Note: Patient seen and examined by me this AM with resident. Agree with resident HPI/ Exam/A&P with appropriate additions and changes. Patient unresponsive to verbal and painful stimuli. Patient with spontaneous movements of limbs and mouth. Patient afebrile. Unable to obtain ROS from patient. Objective - Vital Signs/Intake and Output Vital Signs (last 24 hours): Vital Signs - 24 hr 07/10/15 07/11/15 07/11/15 21:28 05:30 07:45 Temperature 99.2 F 100 F H Pulse Rate 88 77 74 Respiratory 18 18 Rate Blood Pressure 103/69 104/69 O2 Sat by Pulse 99 97 Oximetry 07/11/15 14:14 Temperature 98.7 F Pulse Rate 74 Respiratory 20 Rate Blood Pressure 103/61 O2 Sat by Pulse 100 Oximetry Intake and Output (last 12 hours): Intake & Output 07/10/15 07/11/15 07/11/15 18:59 06:59 18:59 Intake Total 550 900 Output Total 250 450 250 Balance 300 450 -250 Intake: Intake, IV Amount 200 Right Forearm 100 Left Forearm 100 Oral 0 Tube Feeding 550 600 Other 100 Output: Urine 250 450 250 Urethral (Baker) 250 450 250 Other: # Bowel Movements 0 1 - Medications Medications: Current Medications Aspirin (Aspirin) 325 mg PO DAILY [facility] Last Admin: 07/11/15 10:21 Dose: 325 mg Clopidogrel Bisulfate (Plavix) 75 mg PO DAILY [facility] Last Admin: 07/11/15 10:21 Dose: 75 mg Docusate Sodium (Colace Liquid) 100 mg PEG BID [facility] Last Admin: 07/11/15 10:21 Dose: 100 mg Famotidine (Pepcid) 20 mg PO BID [facility] Last Admin: 07/11/15 10:23 Dose: 20 mg Fosphenytoin Sodium 100 mg/ (Dextrose) 52 mls @ 100 mls/hr IV Q8H [facility] Last Admin: 07/11/15 14:22 Dose: 100 mls/hr Lisinopril (Zestril) 5 mg PO DAILY [facility] Last Admin: 07/11/15 10:29 Dose: Not Given Polyethylene Glycol (Miralax) 17 gm PO DAILY [facility] Last Admin: 07/11/15 10:22 Dose: 17 gm - Labs Labs (last 24 hours): Laboratory Results - last 24 hr 07/11/15 07:31 Hepatitis A IgM Ab Negative Hep Bs Antigen Negative Hep B Core IgM Ab Negative Hepatitis C Antibody Negative - Constitutional Appears: No Acute Distress, Chronically Ill - Head Exam Head Exam: ATRAUMATIC, NORMOCEPHALIC - Eye Exam Eye Exam: absent: Scleral icterus - ENT Exam ENT Exam: Mucous Membranes Moist - Neck Exam Additional comments: trach in place - Respiratory Exam Respiratory Exam: absent: Rales, Wheezes Additional comments: coarse breath sounds - GI/Abdominal Exam GI & Abdominal Exam: Normal Bowel Sounds, Soft. absent: Distended Additional comments: PEG in place - Extremities Exam Extremities exam: pedal pulses present Additional comments: no edema appreciated - Neurological Exam Neurological exam: absent: Alert, Oriented x3 Additional comments: Patient unresponsive to verbal and painful stimuli patient with spontaneous movements of limbs and mouth - Skin Skin Exam: Dry, Warm Assessment/Plan (1) Transaminitis Current Visit: Yes Status: Acute Comment: LFTs elevated Hepatitis panel negative F/u LFTs in AM (2) Anoxic encephalopathy Current Visit: Yes Status: Acute Comment: Patient continues to have spontaneous movements of mouth and limbs clinical status unchanged s/p trach and peg (3) Respiratory failure Current Visit: Yes Status: Acute Comment: [id number] depedent On SIMV-tolerating well Dr. Salgado - Pulmonology - help very much appreciated (4) Cardiac arrest Current Visit: Yes Status: Acute Comment: S/P V-Tach arrest Continue Plavix 75mg PO daily Continue Lisinopril 5mg PO daily Continue ASA 325mg PO daily (5) STEMI (ST elevation myocardial infarction) Current Visit: Yes Status: Acute Comment: Continue lisinopril 5mg PO daily Continue ASA 325mg PO daily Continue Plavix 75mg PO daily (6) CAD (coronary artery disease) Current Visit: Yes Status: Acute Comment: s/p cardiac cath with stenting Continue ASA 325mg PO daily Continue lisinopril 5mg PO daily Continue PLavix 75mg PO daily Statin held secondary to elevated LFTs (7) Seizures Current Visit: Yes Status: Acute Comment: Dr. Garcia on case-help appreciated likely secondary to anoxic brain injury Continue Fosphenytoin 100mg IVP Q8 No seizure activity currently (8) Prophylactic measure Current Visit: Yes Status: Acute Comment: Pepcid 20 mg PO q12 SCD's Plavix Miralax Colace BID - Date & Time Date: 07/11/15 Time: 16:34 Attending/Attestation - Attestation I have personally seen and examined this patient.: Yes I have fully participated in the care of the patient.: Yes I have reviewed all pertinent clinical information: Yes
[2015-07-11] MEDS: POLYETHYLENE GLYCOL 3350 17 GM/Dose PACKET PO SCH (10:22)
[2015-07-12] MEDS: Fosphenytoin 100 MG in Dextrose 5% In Water 50 ML IV SCH ×3 (04:08→21:00)
--- NOTE | 2015-07-12 07:22 | CP.PCM.PN ---
<Judith Baires H - Last Filed: 07/12/15 10:42> Subjective - Subjective Subjective: PGY1 Medicine Note: Patient seen and examined at bedside this AM. Patient unresponsive to verbal and painful stimuli. PAtient opened and closed mouth multiple times. Patient in decerebrate posture. Awaiting placement. Review of Systems - Review of Systems Systems not reviewed;Unavailable: Altered Mental Status Objective - Vital Signs/Intake and Output Vital Signs (last 24 hours): Vital Signs - 24 hr 07/11/15 07/11/15 07/11/15 07:45 14:14 21:24 Temperature 98.7 F 98.5 F Pulse Rate 74 74 70 Respiratory 20 20 Rate Blood Pressure 103/61 106/67 O2 Sat by Pulse 100 100 Oximetry 07/12/15 05:53 Temperature 98.4 F Pulse Rate 73 Respiratory 20 Rate Blood Pressure 113/70 O2 Sat by Pulse 100 Oximetry Intake and Output (last 12 hours): Intake & Output 07/11/15 07/12/15 07/12/15 18:59 06:59 18:59 Intake Total 800 Output Total 250 550 Balance -250 250 Weight 103 lb Intake: Intake, IV Amount 100 Left Forearm 100 Tube Feeding 600 Other 100 Output: Urine 250 550 Urethral (Baker) 250 550 Other: # Bowel Movements 3 - Medications Medications: Current Medications Aspirin (Aspirin) 325 mg PO DAILY [facility] Last Admin: 07/11/15 10:21 Dose: 325 mg Clopidogrel Bisulfate (Plavix) 75 mg PO DAILY [facility] Last Admin: 07/11/15 10:21 Dose: 75 mg Docusate Sodium (Colace Liquid) 100 mg PEG BID [facility] Last Admin: 07/11/15 17:57 Dose: 100 mg Famotidine (Pepcid) 20 mg PO BID [facility] Last Admin: 07/11/15 17:57 Dose: 20 mg Fosphenytoin Sodium 100 mg/ (Dextrose) 52 mls @ 100 mls/hr IV Q8H [facility] Last Admin: 07/12/15 04:08 Dose: 100 mls/hr Lisinopril (Zestril) 5 mg PO DAILY [facility] Last Admin: 07/11/15 10:29 Dose: Not Given Polyethylene Glycol (Miralax) 17 gm PO DAILY [facility] Last Admin: 07/11/15 10:22 Dose: 17 gm - Labs Labs (last 24 hours): Laboratory Results - last 24 hr 07/11/15 07:31 Hepatitis A IgM Ab Negative Hep Bs Antigen Negative Hep B Core IgM Ab Negative Hepatitis C Antibody Negative - Constitutional Appears: Chronically Ill - Head Exam Head Exam: NORMAL INSPECTION - Eye Exam Eye Exam: PERRL - ENT Exam ENT Exam: Mucous Membranes Moist - Respiratory Exam Respiratory Exam: Clear to PA & Lateral, NORMAL BREATHING PATTERN Additional comments: trach to vent dependent dressing clean no drainage or bleeding - Cardiovascular Exam Cardiovascular Exam: REGULAR RHYTHM, +S1, +S2 - GI/Abdominal Exam GI & Abdominal Exam: Normal Bowel Sounds, Soft. absent: Distended, Firm Additional comments: peg in place no bleeding or drainage - Exam Exam: NORMAL INSPECTION (baker in place) - Extremities Exam Extremities exam: normal capillary refill. absent: pedal edema - Neurological Exam Neurological exam: Altered - Skin Skin Exam: Dry, Normal Color Assessment/Plan (1) Transaminitis Current Visit: Yes Status: Acute Comment: LFTs elevated trending down Hepatitis panel negative F/u CMP tomorrow (2) Respiratory failure Current Visit: Yes Status: Acute Comment: On SIMV-tolerating well Dr. Salgado - Pulmonology - help very much appreciated (3) Anoxic encephalopathy Current Visit: Yes Status: Acute Comment: Patient continues to have spontaneous movements of mouth and limbs unrepsonsive to painful and verbal stimuli GCS 3 clinical status unchanged s/p trach and peg (4) CAD (coronary artery disease) Current Visit: Yes Status: Acute Comment: s/p cardiac cath with stenting Continue ASA 325mg PO daily Continue lisinopril 5mg PO daily Continue PLavix 75mg PO daily Statin held secondary to elevated LFTs (5) STEMI (ST elevation myocardial infarction) Current Visit: Yes Status: Acute Comment: Continue lisinopril 5mg PO daily Continue ASA 325mg PO daily Continue Plavix 75mg PO daily (6) Seizures Current Visit: Yes Status: Acute Comment: Dr. Garcia on case-help appreciated likely secondary to anoxic brain injury Continue Fosphenytoin 100mg IVP Q8 No seizure activity currently (7) Leukocytosis Current Visit: Yes Status: Acute Comment: WBC 14.1 today with 81.5 %N Afebrile F/U UA and urine culture Monitor (8) Baker catheter in place Current Visit: Yes Status: Acute Comment: needs to be changed on 07/13 (9) Constipation Current Visit: Yes Status: Acute Comment: colace BID 4 BM in past 24 hours after lactulose yesterday (10) Prophylactic measure Current Visit: Yes Status: Acute Comment: Pepcid 20 mg PO q12 SCD's Plavix Miralax Colace BID <Wendi Mercedes R - Last Filed: 07/12/15 13:50> Subjective - Subjective Subjective: Medical Attending Note: Patient seen and examined by me this AM with resident. Agree with resident HPI/ Exam/A&P with appropriate additions and changes. All new labs reviewed by me. Patient unresponsive to painful and verbal stimuli. Patient afebrile. With trach and PEG. Unable to obtain full ROS from patient. Objective - Vital Signs/Intake and Output Vital Signs (last 24 hours): Vital Signs - 24 hr 07/11/15 07/11/15 07/12/15 14:14 21:24 05:53 Temperature 98.7 F 98.5 F 98.4 F Pulse Rate 74 70 73 Respiratory 20 20 20 Rate Blood Pressure 103/61 106/67 113/70 O2 Sat by Pulse 100 100 100 Oximetry 07/12/15 07:50 Temperature Pulse Rate 73 Respiratory Rate Blood Pressure O2 Sat by Pulse Oximetry Intake and Output (last 12 hours): Intake & Output 07/11/15 07/12/15 07/12/15 18:59 06:59 18:59 Intake Total 800 Output Total 250 550 Balance -250 250 Weight 103 lb Intake: Intake, IV Amount 100 Left Forearm 100 Tube Feeding 600 Other 100 Output: Urine 250 550 Urethral (Baker) 250 550 Other: # Bowel Movements 3 - Medications Medications: Current Medications Aspirin (Aspirin) 325 mg PO DAILY [facility] Last Admin: 07/12/15 11:33 Dose: 325 mg Clopidogrel Bisulfate (Plavix) 75 mg PO DAILY [facility] Last Admin: 07/12/15 11:33 Dose: 75 mg Docusate Sodium (Colace Liquid) 100 mg PEG BID [facility] Last Admin: 07/12/15 11:33 Dose: 100 mg Famotidine (Pepcid) 20 mg PO BID [facility] Last Admin: 07/12/15 11:33 Dose: 20 mg Fosphenytoin Sodium 100 mg/ (Dextrose) 52 mls @ 100 mls/hr IV Q8H [facility] Last Admin: 07/12/15 11:40 Dose: 100 mls/hr Lisinopril (Zestril) 5 mg PO DAILY [facility] Last Admin: 07/12/15 11:33 Dose: 5 mg Polyethylene Glycol (Miralax) 17 gm PO DAILY [facility] Last Admin: 07/12/15 11:33 Dose: 17 gm - Labs Labs (last 24 hours): Laboratory Results - last 24 hr 07/12/15 07:28 WBC 14.1 H RBC 3.31 L Hgb 10.2 L Hct 31.0 L MCV 93.7 MCH 30.7 MCHC 32.8 L RDW 14.8 H Plt Count 297 MPV 8.2 Neut % (Auto) 81.5 H Lymph % (Auto) 8.0 L [place] % (Auto) 6.1 Eos % (Auto) 4.3 H Baso % (Auto) 0.1 Neut # 11.5 H Lymph # 1.1 [place] # 0.9 H Eos # 0.6 Baso # 0.0 Neutrophils % (Manual) 82 H Band Neutrophils % 3 H Lymphocytes % (Manual) 9 L Monocytes % (Manual) 2 Eosinophils % (Manual) 4 Toxic Granulation Present Platelet Estimate Normal Hypochromasia (manual) Slight Poikilocytosis (manual Slight Anisocytosis (manual) Slight Sodium 139 Potassium 3.9 Chloride 100 Carbon Dioxide 31 H Anion Gap 12 BUN 19 Creatinine 0.7 L Est GFR ( Amer) > 60 Est GFR (Non-Af Amer) > 60 Random Glucose 128 H Calcium 8.3 L Phosphorus 3.7 Magnesium 2.1 Total Bilirubin 0.4 AST 80 H ALT 102 H Alkaline Phosphatase 146 H Total Protein 7.1 Albumin 3.1 L Globulin 4.1 H Albumin/Globulin Ratio 0.8 L - Constitutional Appears: No Acute Distress, Chronically Ill - Head Exam Head Exam: ATRAUMATIC, NORMOCEPHALIC - Eye Exam Eye Exam: absent: Scleral icterus - ENT Exam ENT Exam: Mucous Membranes Moist Additional comments: trach in place - Respiratory Exam Respiratory Exam: absent: Rales, Wheezes Additional comments: coarse breath sounds - Cardiovascular Exam Cardiovascular Exam: REGULAR RHYTHM, +S1, +S2. absent: Diastolic murmur, Gallop , Rubs, Systolic Murmur - GI/Abdominal Exam GI & Abdominal Exam: Normal Bowel Sounds, Soft. absent: Distended Additional comments: PEG in place - Extremities Exam Extremities exam: pedal pulses present Additional comments: no edema appreciated - Neurological Exam Neurological exam: Altered. absent: Alert, Oriented x3 Additional comments: patient unresponsive to verbal and painful stimuli - Skin Skin Exam: Dry, Warm Assessment/Plan (1) Transaminitis Current Visit: Yes Status: Acute Comment: LFTs elevated trending down Hepatitis panel negative F/u CMP tomorrow Monitor (2) Anoxic encephalopathy Current Visit: Yes Status: Acute Comment: Continues to have spontaneous movements of mouth and limbs unrepsonsive to painful and verbal stimuli GCS 3 clinical status unchanged s/p trach and peg (3) Respiratory failure Current Visit: Yes Status: Acute Comment: Patient on SIMV-tolerating well S/P trach Dr. Salgado - Pulmonology - help very much appreciated (4) Cardiac arrest Current Visit: Yes Status: Acute Comment: S/P V-Tach arrest Continue Lisinopril 5mg PO daily Continue ASA 325mg PO daily Continue Plavix 75mg PO daily (5) STEMI (ST elevation myocardial infarction) Current Visit: Yes Status: Acute Comment: Continue ASA 325mg PO daily Continue Plavix 75mg PO daily Continue lisinopril 5mg PO daily (6) CAD (coronary artery disease) Current Visit: Yes Status: Acute Comment: s/p cardiac cath with stenting Continue ASA 325mg PO daily Continue Plavix 75mg PO daily Continue lisinopril 5mg PO daily Statin held secondary to elevated LFTs (7) Seizures Current Visit: Yes Status: Acute Comment: Dr. Garcia on case-help appreciated Continue Fosphenytoin 100mg IVP Q8 No seizure activity currently likley secondary to anoxic brain injury (8) Prophylactic measure Current Visit: Yes Status: Acute Comment: Pepcid 20 mg PO q12 SCD's Plavix Miralax Colace BID - Date & Time Date: 07/12/15 Time: 13:46 Attending/Attestation - Attestation I have personally seen and examined this patient.: Yes I have fully participated in the care of the patient.: Yes I have reviewed all pertinent clinical information: Yes
[2015-07-12 08:06] LABS: ALBUMIN 3.1 g/dL (3.5-5.0)
[2015-07-12 08:09] LABS: AST/SGOT 80 U/L (17-59); BLOOD UREA NITROGEN 19 mg/dL (9-20); GFR NON-AFRICAN AMERICAN > 60
[2015-07-12 08:10] LABS: ALB/GLOB RATIO 0.8 (1.0-2.1); ALT/SGPT 102 U/L (21-72); CALCIUM 8.3 mg/dL (8.4-10.2)
[2015-07-12 08:18] LABS: BASO % 0.1 % (0.0-2.0); EOS # 0.6 K/uL (0.0-0.7); EOS % 4.3 % (0.0-4.0); HEMOGLOBIN 10.2 g/dL (12.0-18.0); LYMPH # 1.1 K/uL (1.0-4.3); MEAN CELL VOLUME 93.7 fL (80.0-94.0); MEAN CORPUSCULAR HEMOGLOBIN 30.7 pg (27.0-31.0); MEAN CORPUSCULAR HGB CONC 32.8 g/dL (33.0-37.0); MEAN PLATELET VOLUME 8.2 fL (7.2-11.7); MONO # 0.9 K/uL (0.0-0.8); MONO % 6.1 % (0.0-10.0); NEUT # 11.5 K/uL (1.8-7.0); NEUT % 81.5 % (50.0-75.0); NRBC % 0.1 % (0.0-2.0); PLATELET COUNT 297 K/uL (130-400); RBC 3.31 Mil/uL (4.40-5.90); RED CELL DISTRIBUTION WIDTH 14.8 % (11.5-14.5); WHITE BLOOD COUNT 14.1 K/uL (4.8-10.8)
[2015-07-12 09:26] LABS: ANISOCYTOSIS SLIGHT; BANDS 3 % (0-0); EOSINOPHIL 4 % (0-4); HYPOCHROMIC SLIGHT; LYMPHOCYTE 9 % (20-40); MONOCYTE 2 % (0-10); NEUTROPHIL 82 % (50-75); PLATELET ESTIMATE NORMAL (NORMAL); POIKILOCYTOSIS SLIGHT; TOTAL CELLS COUNTED 100
[2015-07-12 09:27] LABS: TOXIC GRANULATION PRESENT
[2015-07-12] MEDS: POLYETHYLENE GLYCOL 3350 17 GM/Dose PACKET PO SCH (11:33)
[2015-07-12 20:36] LABS: SQUAMOUS EPITHIAL < 1 /hpf (0-5); URINE AMORPHOUS SEDIMENT RARE /ul (<OCC); URINE BACTERIA MOD (<OCC); URINE BILIRUBIN NEGATIVE (NEGATIVE); URINE BLOOD 2+ (NEGATIVE); URINE CLARITY Turbid (Clear); URINE COLOR Yellow (YELLOW); URINE GLUCOSE (UA) Normal (Normal); URINE LEUKOCYTE ESTERASE 3+ Leu/uL (Negative); URINE MUCUS MANY; URINE PROTEIN TRACE mg/dL (NEGATIVE); URINE UROBILINOGEN Normal mg/dL (0.2-1.0)
[2015-07-13] MEDS: Fosphenytoin 100 MG in Dextrose 5% In Water 50 ML IV SCH ×3 (03:10→20:40)
[2015-07-13 07:47] LABS: BASO % 0.2 % (0.0-2.0); EOS # 0.7 K/uL (0.0-0.7); EOS % 5.4 % (0.0-4.0); HEMOGLOBIN 10.1 g/dL (12.0-18.0); LYMPH # 1.1 K/uL (1.0-4.3); LYMPH % 8.3 % (20.0-40.0); MEAN CELL VOLUME 93.4 fL (80.0-94.0); MEAN CORPUSCULAR HEMOGLOBIN 30.5 pg (27.0-31.0); MEAN CORPUSCULAR HGB CONC 32.7 g/dL (33.0-37.0); MONO % 7.3 % (0.0-10.0); NEUT # 10.4 K/uL (1.8-7.0); NEUT % 78.8 % (50.0-75.0); PLATELET COUNT 301 K/uL (130-400); RBC 3.31 Mil/uL (4.40-5.90); RED CELL DISTRIBUTION WIDTH 14.5 % (11.5-14.5); WHITE BLOOD COUNT 13.2 K/uL (4.8-10.8)
[2015-07-13 07:50] LABS: ALBUMIN 2.9 g/dL (3.5-5.0)
[2015-07-13 07:53] LABS: ALB/GLOB RATIO 0.7 (1.0-2.1); AST/SGOT 84 U/L (17-59); GFR NON-AFRICAN AMERICAN > 60
[2015-07-13 07:54] LABS: ALT/SGPT 112 U/L (21-72); BLOOD UREA NITROGEN 18 mg/dL (9-20); CALCIUM 8.3 mg/dL (8.4-10.2)
[2015-07-13 08:50] LABS: ANISOCYTOSIS SLIGHT; BANDS 1 % (0-0); EOSINOPHIL 3 % (0-4); LYMPHOCYTE 12 % (20-40); MONOCYTE 9 % (0-10); NEUTROPHIL 75 % (50-75); PLATELET ESTIMATE NORMAL (NORMAL); POIKILOCYTOSIS SLIGHT; TOTAL CELLS COUNTED 100
[2015-07-13 08:51] LABS: HYPOCHROMIC SLIGHT; LARGE PLATELETS PRESENT; TOXIC GRANULATION PRESENT
[2015-07-13] MEDS: POLYETHYLENE GLYCOL 3350 17 GM/Dose PACKET PO SCH (09:57)
[2015-07-13] MEDS: cefTRIAXone IV 1 gm in Dextros 50 ML IVPB SCH ×2 (13:49→23:25)
--- NOTE | 2015-07-13 16:30 | CP.PCM.PN ---
<Scout Marinelli - Last Filed: 07/13/15 17:28> Subjective - Subjective Subjective: Pt seen and examined at bedside this morning. Unresponsive to external stimuli. Pt have spontaneous arm, torso and leg movements. Per nurse no acute changes overnight. Review of Systems - Review of Systems Systems not reviewed;Unavailable: Altered Mental Status Objective - Vital Signs/Intake and Output Vital Signs (last 24 hours): Vital Signs - 24 hr 07/12/15 07/12/15 07/13/15 20:00 21:50 05:25 Temperature 97.5 F L 99.5 F Pulse Rate 65 65 72 Respiratory 18 18 Rate Blood Pressure 119/78 100/58 L O2 Sat by Pulse 100 100 Oximetry 07/13/15 07/13/15 10:37 14:40 Temperature 98.2 F Pulse Rate 72 63 Respiratory 17 Rate Blood Pressure 92/63 L O2 Sat by Pulse Oximetry Intake and Output (last 12 hours): Intake & Output 07/12/15 07/13/15 07/13/15 18:59 06:59 18:59 Intake Total 1400 Output Total 550 1050 Balance -550 350 Intake: Intake, IV Amount 100 Left Forearm 100 Tube Feeding 1200 Other 100 Output: Urine 550 1050 Urethral (Baker) 550 1050 Other: # Bowel Movements 1 0 - Medications Medications: Current Medications Aspirin (Aspirin) 325 mg PO DAILY [facility] Last Admin: 07/13/15 09:56 Dose: 325 mg Clopidogrel Bisulfate (Plavix) 75 mg PO DAILY [facility] Last Admin: 07/13/15 09:57 Dose: 75 mg Docusate Sodium (Colace Liquid) 100 mg PEG BID [facility] Last Admin: 07/13/15 09:56 Dose: 100 mg Famotidine (Pepcid) 20 mg PO BID [facility] Last Admin: 07/13/15 09:56 Dose: 20 mg Fosphenytoin Sodium 100 mg/ (Dextrose) 52 mls @ 100 mls/hr IV Q8H [facility] Last Admin: 07/13/15 12:22 Dose: 100 mls/hr Ceftriaxone Sodium (Rocephin Iv 1 Gm Duplex) 50 mls @ 100 mls/hr IVPB Q12H [facility] Last Admin: 07/13/15 13:49 Dose: 100 mls/hr Lisinopril (Zestril) 5 mg PO DAILY [facility] Last Admin: 07/13/15 09:57 Dose: 5 mg Polyethylene Glycol (Miralax) 17 gm PO DAILY [facility] Last Admin: 07/13/15 09:57 Dose: 17 gm - Labs Labs (last 24 hours): Laboratory Results - last 24 hr 07/12/15 07/13/15 07/13/15 20:10 07:20 07:25 WBC 13.2 H RBC 3.31 L Hgb 10.1 L Hct 30.9 L MCV 93.4 MCH 30.5 MCHC 32.7 L RDW 14.5 Plt Count 301 MPV 8.0 Neut % (Auto) 78.8 H Lymph % (Auto) 8.3 L [place] % (Auto) 7.3 Eos % (Auto) 5.4 H Baso % (Auto) 0.2 Neut # 10.4 H Lymph # 1.1 [place] # 1.0 H Eos # 0.7 Baso # 0.0 Neutrophils % (Manual) 75 Band Neutrophils % 1 H Lymphocytes % (Manual) 12 L Monocytes % (Manual) 9 Eosinophils % (Manual) 3 Toxic Granulation Present Platelet Estimate Normal Large Platelets Present Hypochromasia (manual) Slight Poikilocytosis (manual Slight Anisocytosis (manual) Slight Sodium 139 Potassium 4.1 Chloride 100 Carbon Dioxide 31 H Anion Gap 12 BUN 18 Creatinine 0.7 L Est GFR ( Amer) > 60 Est GFR (Non-Af Amer) > 60 POC Glucose (mg/dL) 128 H Random Glucose 122 H Calcium 8.3 L Phosphorus 4.0 Magnesium 2.0 Total Bilirubin 0.4 AST 84 H ALT 112 H Alkaline Phosphatase 146 H Total Protein 7.0 Albumin 2.9 L Globulin 4.0 H Albumin/Globulin Ratio 0.7 L Urine Color Yellow Urine Clarity Turbid Urine pH 6.0 Ur Specific [place] 1.013 Urine Protein Trace Urine Glucose (UA) Normal Urine Ketones Negative Urine Blood 2+ H Urine Nitrate Negative Urine Bilirubin Negative Urine Urobilinogen Normal Ur Leukocyte Esterase 3+ H Urine WBC (Auto) 138 H Urine RBC (Auto) 29 H Ur Squamous Epith Cells < 1 Ur Transition Epith Cell 1 Amorphous Sediment Rare H Urine Bacteria Mod H Urine Mucus Many H - Constitutional Appears: No Acute Distress, Chronically Ill - Head Exam Head Exam: ATRAUMATIC - Eye Exam Eye Exam: PERRL Pupil Exam: PERRL - Respiratory Exam Respiratory Exam: Clear to PA & Lateral, NORMAL BREATHING PATTERN Additional comments: trach on vent, FiO2 40 and PEEP 5 - Cardiovascular Exam Cardiovascular Exam: REGULAR RHYTHM, +S1, +S2. absent: Gallop, Rubs - GI/Abdominal Exam GI & Abdominal Exam: Normal Bowel Sounds, Soft Additional comments: PEG in place, dressing C/D/I - Exam Additional comments: Baker in place. - Skin Skin Exam: Normal Color Assessment/Plan (1) UTI (lower urinary tract infection) Current Visit: Yes Status: Acute Comment: Positive UA. Started Rocephin 1gm IVPB Q12. Replaced baker for a new one. F/U urine c/s. (2) Anoxic encephalopathy Current Visit: Yes Status: Acute Comment: Continues to have spontaneous movements of mouth and limbs unrepsonsive to painful and verbal stimuli GCS 3 clinical status unchanged s/p trach and peg (3) Respiratory failure Current Visit: Yes Status: Acute Comment: Patient on SIMV-tolerating well S/P trach Dr. Salgado - Pulmonology - help very much appreciated (4) Prophylactic measure Current Visit: Yes Status: Acute Comment: Pepcid 20 mg PO q12 SCD's Plavix Miralax Colace BID <Wendi Mercedes R - Last Filed: 07/13/15 20:58> Subjective - Subjective Subjective: Medical Attending Note: Patient seen and examined by me this AM with resident. Agree with resident HPI/ Exam/A&P with appropriate additions and changes. All new labs reviewed by me. Patient unresponsive to verbal and painful stimuli. Patient afebrile. Unable to obtain review of systems from patient. Objective - Vital Signs/Intake and Output Vital Signs (last 24 hours): Vital Signs - 24 hr 07/12/15 07/13/15 07/13/15 21:50 05:25 10:37 Temperature 97.5 F L 99.5 F Pulse Rate 65 72 72 Respiratory 18 18 Rate Blood Pressure 119/78 100/58 L O2 Sat by Pulse 100 100 Oximetry 07/13/15 14:40 Temperature 98.2 F Pulse Rate 63 Respiratory 17 Rate Blood Pressure 92/63 L O2 Sat by Pulse Oximetry Intake and Output (last 12 hours): Intake & Output 07/13/15 07/13/15 07/14/15 06:59 18:59 06:59 Intake Total 1400 900 Output Total 1050 600 Balance 350 300 Intake: Intake, IV Amount 100 100 Left Forearm 100 100 Tube Feeding 1200 600 Other 100 200 Output: Urine 1050 600 Urethral (Baker) 1050 600 Other: # Bowel Movements 0 1 - Medications Medications: Current Medications Aspirin (Aspirin) 325 mg PO DAILY [facility] Last Admin: 07/13/15 09:56 Dose: 325 mg Clopidogrel Bisulfate (Plavix) 75 mg PO DAILY [facility] Last Admin: 07/13/15 09:57 Dose: 75 mg Docusate Sodium (Colace Liquid) 100 mg PEG BID [facility] Last Admin: 07/13/15 17:34 Dose: 100 mg Famotidine (Pepcid) 20 mg PO BID [facility] Last Admin: 07/13/15 17:34 Dose: 20 mg Fosphenytoin Sodium 100 mg/ (Dextrose) 52 mls @ 100 mls/hr IV Q8H [facility] Last Admin: 07/13/15 20:40 Dose: 100 mls/hr Ceftriaxone Sodium (Rocephin Iv 1 Gm Duplex) 50 mls @ 100 mls/hr IVPB Q12H [facility] Last Admin: 07/13/15 13:49 Dose: 100 mls/hr Lisinopril (Zestril) 5 mg PO DAILY [facility] Last Admin: 07/13/15 09:57 Dose: 5 mg Polyethylene Glycol (Miralax) 17 gm PO DAILY [facility] Last Admin: 07/13/15 09:57 Dose: 17 gm - Labs Labs (last 24 hours): Laboratory Results - last 24 hr 07/13/15 07/13/15 07:20 07:25 WBC 13.2 H RBC 3.31 L Hgb 10.1 L Hct 30.9 L MCV 93.4 MCH 30.5 MCHC 32.7 L RDW 14.5 Plt Count 301 MPV 8.0 Neut % (Auto) 78.8 H Lymph % (Auto) 8.3 L [place] % (Auto) 7.3 Eos % (Auto) 5.4 H Baso % (Auto) 0.2 Neut # 10.4 H Lymph # 1.1 [place] # 1.0 H Eos # 0.7 Baso # 0.0 Neutrophils % (Manual) 75 Band Neutrophils % 1 H Lymphocytes % (Manual) 12 L Monocytes % (Manual) 9 Eosinophils % (Manual) 3 Toxic Granulation Present Platelet Estimate Normal Large Platelets Present Hypochromasia (manual) Slight Poikilocytosis (manual Slight Anisocytosis (manual) Slight Sodium 139 Potassium 4.1 Chloride 100 Carbon Dioxide 31 H Anion Gap 12 BUN 18 Creatinine 0.7 L Est GFR ( Amer) > 60 Est GFR (Non-Af Amer) > 60 POC Glucose (mg/dL) 128 H Random Glucose 122 H Calcium 8.3 L Phosphorus 4.0 Magnesium 2.0 Total Bilirubin 0.4 AST 84 H ALT 112 H Alkaline Phosphatase 146 H Total Protein 7.0 Albumin 2.9 L Globulin 4.0 H Albumin/Globulin Ratio 0.7 L - Constitutional Appears: No Acute Distress, Chronically Ill - Head Exam Head Exam: ATRAUMATIC, NORMOCEPHALIC - Eye Exam Eye Exam: absent: Scleral icterus - ENT Exam ENT Exam: Mucous Membranes Moist - Neck Exam Additional comments: trach in place - Respiratory Exam Respiratory Exam: absent: Rales, Wheezes Additional comments: coarse breath sounds - Cardiovascular Exam Cardiovascular Exam: REGULAR RHYTHM, +S1, +S2. absent: Diastolic murmur, Gallop , Rubs, Systolic Murmur - GI/Abdominal Exam GI & Abdominal Exam: Normal Bowel Sounds, Soft. absent: Distended Additional comments: PEG in place - Extremities Exam Extremities exam: pedal pulses present Additional comments: no c/c/e appreciated - Neurological Exam Neurological exam: absent: Alert Additional comments: patient unresponsive to verbal and painful stimuli - Skin Skin Exam: Dry, Warm Assessment/Plan (1) UTI (lower urinary tract infection) Current Visit: Yes Status: Acute Comment: Positive UA. Started Rocephin 1gm IVPB Q12. Replaced baker for a new one. F/U urine C &S (2) Transaminitis Current Visit: Yes Status: Acute Comment: LFTs elevated Hepatitis panel negative Monitor (3) Anoxic encephalopathy Current Visit: Yes Status: Acute Comment: Continues to have spontaneous movements of mouth and limbs Continues to be unrepsonsive to painful and verbal stimuli clinical status unchanged s/p trach and peg (4) Respiratory failure Current Visit: Yes Status: Acute Comment: Patient doing well on SIMV S/P trach Dr. Salgado - Pulmonology - help very much appreciated (5) Cardiac arrest Current Visit: Yes Status: Acute Comment: S/P V-Tach arrest Continue Lisinopril 5mg PO daily Continue Plavix 75mg PO daily Continue ASA 325mg PO daily (6) STEMI (ST elevation myocardial infarction) Current Visit: Yes Status: Acute Comment: Continue Lisinopril 5mg PO daily Continue ASA 325mg PO daily Continue Plavix 75mg PO daily (7) CAD (coronary artery disease) Current Visit: Yes Status: Acute Comment: s/p cardiac cath with stenting Continue ASA 325mg PO daily Continue lisinopril 5mg PO daily Continue Plavix 75mg PO daily (8) Seizures Current Visit: Yes Status: Acute Comment: Dr. Garcia on case-help appreciated Continue Fosphenytoin 100mg IVP Q8 No seizure activity currently likley secondary to anoxic brain injury Continue to monitor for seizure activity (9) Prophylactic measure Current Visit: Yes Status: Acute Comment: Pepcid 20 mg PO q12 SCD's Plavix Miralax Colace BID - Date & Time Date: 07/13/15 Time: 20:49 Attending/Attestation - Attestation I have personally seen and examined this patient.: Yes I have fully participated in the care of the patient.: Yes I have reviewed all pertinent clinical information: Yes
--- NOTE | 2015-07-14 02:17 | CP.PCM.PN ---
<Judith Baires H - Last Filed: 07/14/15 02:14> Subjective - Subjective Subjective: PGY1 Medicine Note: Patient seen and examined at bedside. Patient unresponsive to verbal and painful stimuli. Patient has spontaneous movements. Clinical status unchanged. Awaiting placement. Review of Systems - Review of Systems Systems not reviewed;Unavailable: Altered Mental Status Objective - Vital Signs/Intake and Output Vital Signs (last 24 hours): Vital Signs - 24 hr 07/13/15 07/13/15 07/13/15 05:25 10:37 14:40 Temperature 99.5 F 98.2 F Pulse Rate 72 72 63 Respiratory 18 17 Rate Blood Pressure 100/58 L 92/63 L O2 Sat by Pulse 100 Oximetry 07/13/15 07/13/15 20:00 21:09 Temperature 98.9 F Pulse Rate 69 69 Respiratory 18 Rate Blood Pressure 97/64 L O2 Sat by Pulse 100 Oximetry Intake and Output (last 12 hours): Intake & Output 07/13/15 07/13/15 07/14/15 06:59 18:59 06:59 Intake Total 1400 900 Output Total 1050 600 400 Balance 350 300 -400 Intake: Intake, IV Amount 100 100 Left Forearm 100 100 Tube Feeding 1200 600 Other 100 200 Output: Urine 1050 600 400 Urethral (Yoo) 1050 600 400 Other: # Bowel Movements 0 1 - Medications Medications: Current Medications Aspirin (Aspirin) 325 mg PO DAILY [facility] Last Admin: 07/13/15 09:56 Dose: 325 mg Clopidogrel Bisulfate (Plavix) 75 mg PO DAILY [facility] Last Admin: 07/13/15 09:57 Dose: 75 mg Docusate Sodium (Colace Liquid) 100 mg PEG BID [facility] Last Admin: 07/13/15 17:34 Dose: 100 mg Famotidine (Pepcid) 20 mg PO BID [facility] Last Admin: 07/13/15 17:34 Dose: 20 mg Fosphenytoin Sodium 100 mg/ (Dextrose) 52 mls @ 100 mls/hr IV Q8H [facility] Last Admin: 07/13/15 20:40 Dose: 100 mls/hr Ceftriaxone Sodium (Rocephin Iv 1 Gm Duplex) 50 mls @ 100 mls/hr IVPB Q12H [facility] Last Admin: 07/13/15 23:25 Dose: 100 mls/hr Lisinopril (Zestril) 5 mg PO DAILY [facility] Last Admin: 07/13/15 09:57 Dose: 5 mg Polyethylene Glycol (Miralax) 17 gm PO DAILY [facility] Last Admin: 07/13/15 09:57 Dose: 17 gm - Labs Labs (last 24 hours): Laboratory Results - last 24 hr 07/13/15 07/13/15 07:20 07:25 WBC 13.2 H RBC 3.31 L Hgb 10.1 L Hct 30.9 L MCV 93.4 MCH 30.5 MCHC 32.7 L RDW 14.5 Plt Count 301 MPV 8.0 Neut % (Auto) 78.8 H Lymph % (Auto) 8.3 L [place] % (Auto) 7.3 Eos % (Auto) 5.4 H Baso % (Auto) 0.2 Neut # 10.4 H Lymph # 1.1 [place] # 1.0 H Eos # 0.7 Baso # 0.0 Neutrophils % (Manual) 75 Band Neutrophils % 1 H Lymphocytes % (Manual) 12 L Monocytes % (Manual) 9 Eosinophils % (Manual) 3 Toxic Granulation Present Platelet Estimate Normal Large Platelets Present Hypochromasia (manual) Slight Poikilocytosis (manual Slight Anisocytosis (manual) Slight Sodium 139 Potassium 4.1 Chloride 100 Carbon Dioxide 31 H Anion Gap 12 BUN 18 Creatinine 0.7 L Est GFR ( Amer) > 60 Est GFR (Non-Af Amer) > 60 POC Glucose (mg/dL) 128 H Random Glucose 122 H Calcium 8.3 L Phosphorus 4.0 Magnesium 2.0 Total Bilirubin 0.4 AST 84 H ALT 112 H Alkaline Phosphatase 146 H Total Protein 7.0 Albumin 2.9 L Globulin 4.0 H Albumin/Globulin Ratio 0.7 L - Constitutional Appears: Chronically Ill - Head Exam Head Exam: NORMAL INSPECTION - ENT Exam ENT Exam: Mucous Membranes Moist - Respiratory Exam Respiratory Exam: Clear to PA & Lateral, NORMAL BREATHING PATTERN, UNREMARKABLE Additional comments: FiO2 40, PEEP 5, SIMV rate 8, TV 450 - Cardiovascular Exam Cardiovascular Exam: REGULAR RHYTHM, +S1, +S2 - GI/Abdominal Exam GI & Abdominal Exam: Normal Bowel Sounds, Soft Additional comments: peg in place no bleeding or drainage - Extremities Exam Extremities exam: absent: pedal edema - Neurological Exam Neurological exam: Altered - Skin Skin Exam: Normal Color Assessment/Plan (1) Transaminitis Current Visit: Yes Status: Acute Comment: LFTs elevated Hepatitis panel negative Monitor (2) Respiratory failure Current Visit: Yes Status: Acute Comment: Patient doing well on SIMV S/P trach Dr. Salgado - Pulmonology - help very much appreciated (3) Anoxic encephalopathy Current Visit: Yes Status: Acute Comment: Continues to have spontaneous movements of mouth and limbs Continues to be unrepsonsive to painful and verbal stimuli clinical status unchanged s/p trach and peg (4) CAD (coronary artery disease) Current Visit: Yes Status: Acute Comment: s/p cardiac cath with stenting Continue ASA 325mg PO daily Continue lisinopril 5mg PO daily Continue Plavix 75mg PO daily (5) STEMI (ST elevation myocardial infarction) Current Visit: Yes Status: Acute Comment: Continue Lisinopril 5mg PO daily Continue ASA 325mg PO daily Continue Plavix 75mg PO daily (6) Seizures Current Visit: Yes Status: Acute Comment: Dr. Garcia on case-help appreciated Continue Fosphenytoin 100mg IVP Q8 No seizure activity currently likley secondary to anoxic brain injury Continue to monitor for seizure activity (7) Leukocytosis Current Visit: Yes Status: Acute Comment: Afebrile UA shows infection Started on rocephin F/U Urine culture Yoo changed yesterday Monitor (8) Yoo catheter in place Current Visit: Yes Status: Acute Comment: needs to be changed on 07/26 (9) Prophylactic measure Current Visit: Yes Status: Acute Comment: Pepcid 20 mg PO q12 SCD's Plavix Miralax Colace BID <Wendi Mercedes R - Last Filed: 07/14/15 13:22> Subjective - Subjective Subjective: Medical Attending Note: Patient seen and examined by me this AM. Agree with resident HPI/Exam/A&P with appropriate additions and changes. All new labs and studies reviewed by me. Patient unresponsive to verbal and painful stimuli. Patient with spontaneous arm and mouth movements. patient afebrile. Unable to obtain review of systems. Objective - Vital Signs/Intake and Output Vital Signs (last 24 hours): Vital Signs - 24 hr 07/13/15 07/13/15 07/13/15 14:40 20:00 21:09 Temperature 98.2 F 98.9 F Pulse Rate 63 69 69 Respiratory 17 18 Rate Blood Pressure 92/63 L 97/64 L O2 Sat by Pulse 100 Oximetry 07/14/15 07/14/15 05:41 08:45 Temperature 97.6 F Pulse Rate 71 71 Respiratory 20 Rate Blood Pressure 91/61 L O2 Sat by Pulse 100 Oximetry Intake and Output (last 12 hours): Intake & Output 07/13/15 07/14/15 07/14/15 18:59 06:59 18:59 Intake Total 900 850 Output Total 600 1000 Balance 300 -150 Weight 108 lb Intake: Intake, IV Amount 100 150 Left Forearm 100 150 Tube Feeding 600 600 Other 200 100 Output: Urine 600 1000 Urethral (Yoo) 600 1000 Other: # Bowel Movements 1 1 - Medications Medications: Current Medications Aspirin (Aspirin) 325 mg PO DAILY [facility] Last Admin: 07/14/15 10:16 Dose: 325 mg Clopidogrel Bisulfate (Plavix) 75 mg PO DAILY [facility] Last Admin: 07/14/15 10:15 Dose: 75 mg Docusate Sodium (Colace Liquid) 100 mg PEG BID [facility] Last Admin: 07/14/15 10:15 Dose: 100 mg Famotidine (Pepcid) 20 mg PO BID [facility] Last Admin: 07/14/15 10:15 Dose: 20 mg Fosphenytoin Sodium 100 mg/ (Dextrose) 52 mls @ 100 mls/hr IV Q8H [facility] Last Admin: 07/14/15 11:42 Dose: 100 mls/hr Ciprofloxacin (Cipro 400mg/200ml Dsw) 200 mls @ 133 mls/hr IVPB Q12H [facility] Last Admin: 07/14/15 10:50 Dose: 133 mls/hr Lisinopril (Zestril) 5 mg PO DAILY [facility] Last Admin: 07/14/15 10:16 Dose: Not Given Polyethylene Glycol (Miralax) 17 gm PO DAILY [facility] Last Admin: 07/14/15 10:16 Dose: 17 gm - Labs Labs (last 24 hours): Laboratory Results - last 24 hr 07/14/15 07:30 WBC 12.0 H RBC 3.30 L Hgb 10.2 L Hct 30.7 L MCV 93.1 MCH 31.0 MCHC 33.3 RDW 14.4 Plt Count 330 MPV 8.0 Neut % (Auto) 78.0 H Lymph % (Auto) 8.3 L [place] % (Auto) 8.9 Eos % (Auto) 4.6 H Baso % (Auto) 0.2 Neut # 9.3 H Lymph # 1.0 [place] # 1.1 H Eos # 0.6 Baso # 0.0 Neutrophils % (Manual) 74 Band Neutrophils % 10 H Lymphocytes % (Manual) 8 L Monocytes % (Manual) 4 Eosinophils % (Manual) 4 Platelet Estimate Normal Anisocytosis (manual) Slight Tear Drop Cells Slight Ovalocytes Slight Sodium 138 Potassium 4.3 Chloride 98 Carbon Dioxide 33 H Anion Gap 11 BUN 15 Creatinine 0.6 L Est GFR ( Amer) > 60 Est GFR (Non-Af Amer) > 60 Random Glucose 120 H Calcium 8.4 Phosphorus 4.5 Magnesium 2.1 Total Bilirubin 0.4 AST 83 H ALT 117 H Alkaline Phosphatase 150 H Total Protein 7.1 Albumin 3.1 L Globulin 4.1 H Albumin/Globulin Ratio 0.8 L - Constitutional Appears: No Acute Distress, Chronically Ill - Head Exam Head Exam: ATRAUMATIC, NORMOCEPHALIC - Eye Exam Eye Exam: absent: Scleral icterus - ENT Exam ENT Exam: Mucous Membranes Moist Additional comments: trach in place - Respiratory Exam Respiratory Exam: absent: Rales, Wheezes Additional comments: coarse breath sounds - Cardiovascular Exam Cardiovascular Exam: REGULAR RHYTHM, +S1, +S2. absent: Diastolic murmur, Gallop , Rubs, Systolic Murmur - GI/Abdominal Exam GI & Abdominal Exam: Normal Bowel Sounds, Soft. absent: Distended Additional comments: PEG in place - Extremities Exam Extremities exam: pedal pulses present Additional comments: no c/c/e appreciated - Neurological Exam Neurological exam: absent: Alert Additional comments: patient unresponsive to painful and verbal stimuli Patient with spontaneous movements of mouth and limbs - Skin Skin Exam: Dry, Warm Assessment/Plan (1) UTI (lower urinary tract infection) Current Visit: Yes Status: Acute Comment: Positive UA Urine culture positive for Pseudomonas Started on cipro 400mg IVPB q12hrs Yoo replaced 07/13/15 (2) Transaminitis Current Visit: Yes Status: Acute Comment: LFTs continue to be elevated Hepatitis panel negative Monitor (3) Anoxic encephalopathy Current Visit: Yes Status: Acute Comment: Continues to have spontaneous movements of mouth and limbs Continues to be unrepsonsive to painful and verbal stimuli clinical status still unchanged (4) Respiratory failure Current Visit: Yes Status: Acute Comment: ON SIMV-tolerating well S/P trach Dr. Salgado - Pulmonology - help very much appreciated (5) Cardiac arrest Current Visit: Yes Status: Acute Comment: s/p V-Tach arrest Continue Plavix 75mg PO daily Continue Lisinopril 5mg PO daily Continue ASA 325mg PO daily (6) STEMI (ST elevation myocardial infarction) Current Visit: Yes Status: Acute Comment: Continue Lisinopril 5mg PO daily Continue Plavix 75mg pO daily Continue ASA 325mg PO daily (7) CAD (coronary artery disease) Current Visit: Yes Status: Acute Comment: s/p cardiac cath with stenting Continue Plavix 75mg PO daily Continue ASA 325mg PO daily Continue lisinopril 5mg PO daily (8) Seizures Current Visit: Yes Status: Acute Comment: Dr. Garcia on case-help appreciated Continue Fosphenytoin 100mg IVP Q8 No seizure activity likley secondary to anoxic brain injury Continue to monitor for seizure activity (9) Prophylactic measure Current Visit: Yes Status: Acute Comment: Pepcid 20 mg PO q12 SCD's Plavix Miralax Colace BID - Date & Time Date: 07/14/15 Time: 13:17 Attending/Attestation - Attestation I have personally seen and examined this patient.: Yes I have fully participated in the care of the patient.: Yes I have reviewed all pertinent clinical information: Yes
[2015-07-14] MEDS: Fosphenytoin 100 MG in Dextrose 5% In Water 50 ML IV SCH ×3 (04:05→20:25)
[2015-07-14 07:58] LABS: BASO % 0.2 % (0.0-2.0); EOS # 0.6 K/uL (0.0-0.7); EOS % 4.6 % (0.0-4.0); HEMOGLOBIN 10.2 g/dL (12.0-18.0); LYMPH % 8.3 % (20.0-40.0); MEAN CELL VOLUME 93.1 fL (80.0-94.0); MEAN CORPUSCULAR HGB CONC 33.3 g/dL (33.0-37.0); MONO # 1.1 K/uL (0.0-0.8); MONO % 8.9 % (0.0-10.0); NEUT # 9.3 K/uL (1.8-7.0); PLATELET COUNT 330 K/uL (130-400); RED CELL DISTRIBUTION WIDTH 14.4 % (11.5-14.5)
[2015-07-14 08:21] LABS: ALBUMIN 3.1 g/dL (3.5-5.0)
[2015-07-14 08:24] LABS: ALB/GLOB RATIO 0.8 (1.0-2.1); ALT/SGPT 117 U/L (21-72); AST/SGOT 83 U/L (17-59); BLOOD UREA NITROGEN 15 mg/dL (9-20); GFR NON-AFRICAN AMERICAN > 60
[2015-07-14 08:25] LABS: CALCIUM 8.4 mg/dL (8.4-10.2)
[2015-07-14 09:49] LABS: ANISOCYTOSIS SLIGHT; BANDS 10 % (0-0); EOSINOPHIL 4 % (0-4); LYMPHOCYTE 8 % (20-40); MONOCYTE 4 % (0-10); NEUTROPHIL 74 % (50-75); PLATELET ESTIMATE NORMAL (NORMAL); TOTAL CELLS COUNTED 100
[2015-07-14 09:50] LABS: OVALOCYTES SLIGHT; TEARDROP CELLS SLIGHT
[2015-07-14] MEDS: POLYETHYLENE GLYCOL 3350 17 GM/Dose PACKET PO SCH (10:16)
[2015-07-14] MEDS: Ciprofloxacin 400mg/200ml D5W 200 ML IVPB SCH ×2 (10:50→23:11)
--- NOTE | 2015-07-15 00:41 | CP.PCM.PN ---
<ViryJudith H - Last Filed: 07/15/15 00:39> Subjective - Subjective Subjective: PGY1 Medicine Note: Patient seen and examined at bedside. Patient unresponsive to verbal and painful stimuli. Patient has spontaneous movements. Patient groaned when I tried to open his mouth. Clinical status unchanged. Awaiting placement. Review of Systems - Review of Systems Systems not reviewed;Unavailable: Altered Mental Status Objective - Vital Signs/Intake and Output Vital Signs (last 24 hours): Vital Signs - 24 hr 07/14/15 07/14/15 07/14/15 05:41 08:45 15:14 Temperature 97.6 F 97.5 F L Pulse Rate 71 71 67 Respiratory 20 20 Rate Blood Pressure 91/61 L 100/70 O2 Sat by Pulse 100 100 Oximetry 07/14/15 21:43 Temperature 96.9 F L Pulse Rate 66 Respiratory 20 Rate Blood Pressure 120/72 O2 Sat by Pulse 100 Oximetry Intake and Output (last 12 hours): Intake & Output 07/14/15 07/14/15 07/15/15 06:59 18:59 06:59 Intake Total 850 1050 300 Output Total 1000 700 600 Balance -150 350 -300 Weight 108 lb Intake: Intake, IV Amount 150 250 300 Left Forearm 150 250 Left Forearm 300 Tube Feeding 600 600 Other 100 200 Output: Urine 1000 700 600 Urethral (Baker) 1000 700 600 Other: # Bowel Movements 1 1 0 - Medications Medications: Current Medications Aspirin (Aspirin) 325 mg PO DAILY [facility] Last Admin: 07/14/15 10:16 Dose: 325 mg Clopidogrel Bisulfate (Plavix) 75 mg PO DAILY [facility] Last Admin: 07/14/15 10:15 Dose: 75 mg Docusate Sodium (Colace Liquid) 100 mg PEG BID [facility] Last Admin: 07/14/15 17:19 Dose: 100 mg Famotidine (Pepcid) 20 mg PO BID [facility] Last Admin: 07/14/15 17:20 Dose: 20 mg Fosphenytoin Sodium 100 mg/ (Dextrose) 52 mls @ 100 mls/hr IV Q8H [facility] Last Admin: 07/14/15 20:25 Dose: 100 mls/hr Ciprofloxacin (Cipro 400mg/200ml Dsw) 200 mls @ 133 mls/hr IVPB Q12H [facility] Last Admin: 07/14/15 23:11 Dose: 133 mls/hr Lisinopril (Zestril) 5 mg PO DAILY [facility] Last Admin: 07/14/15 10:16 Dose: Not Given Polyethylene Glycol (Miralax) 17 gm PO DAILY [facility] Last Admin: 07/14/15 10:16 Dose: 17 gm - Labs Labs (last 24 hours): Laboratory Results - last 24 hr 07/14/15 07/14/15 07:30 13:22 WBC 12.0 H RBC 3.30 L Hgb 10.2 L Hct 30.7 L MCV 93.1 MCH 31.0 MCHC 33.3 RDW 14.4 Plt Count 330 MPV 8.0 Neut % (Auto) 78.0 H Lymph % (Auto) 8.3 L [place] % (Auto) 8.9 Eos % (Auto) 4.6 H Baso % (Auto) 0.2 Neut # 9.3 H Lymph # 1.0 [place] # 1.1 H Eos # 0.6 Baso # 0.0 Neutrophils % (Manual) 74 Band Neutrophils % 10 H Lymphocytes % (Manual) 8 L Monocytes % (Manual) 4 Eosinophils % (Manual) 4 Platelet Estimate Normal Anisocytosis (manual) Slight Tear Drop Cells Slight Ovalocytes Slight Sodium 138 Potassium 4.3 Chloride 98 Carbon Dioxide 33 H Anion Gap 11 BUN 15 Creatinine 0.6 L Est GFR ( Amer) > 60 Est GFR (Non-Af Amer) > 60 Random Glucose 120 H Calcium 8.4 Phosphorus 4.5 Magnesium 2.1 Total Bilirubin 0.4 AST 83 H ALT 117 H Alkaline Phosphatase 150 H Total Protein 7.1 Albumin 3.1 L Globulin 4.1 H Albumin/Globulin Ratio 0.8 L Phenytoin 5.6 L - Constitutional Appears: Chronically Ill - Head Exam Head Exam: NORMAL INSPECTION - Eye Exam Eye Exam: Normal appearance - ENT Exam ENT Exam: Mucous Membranes Moist Additional comments: missing many teeth - Respiratory Exam Respiratory Exam: Clear to PA & Lateral, NORMAL BREATHING PATTERN, UNREMARKABLE - Cardiovascular Exam Cardiovascular Exam: REGULAR RHYTHM, +S1, +S2 - GI/Abdominal Exam GI & Abdominal Exam: Normal Bowel Sounds, Soft Additional comments: peg in place no bleeding or drainage - Exam Exam: NORMAL INSPECTION (baker in place) - Extremities Exam Extremities exam: normal capillary refill. absent: pedal edema - Neurological Exam Neurological exam: Altered - Skin Skin Exam: Normal Color Assessment/Plan (1) Urinary tract infection Current Visit: Yes Status: Acute Comment: urine culture from 07/12 positive for pseudomonas most sensitive to ciprofloxacin Cipro 400mg Q12 started (2) Transaminitis Current Visit: Yes Status: Acute Comment: LFTs continue to be elevated Hepatitis panel negative Monitor (3) Respiratory failure Current Visit: Yes Status: Acute Comment: ON SIMV-tolerating well S/P trach Dr. Salgado - Pulmonology - help very much appreciated (4) Anoxic encephalopathy Current Visit: Yes Status: Acute Comment: Continues to have spontaneous movements of mouth and limbs Continues to be unrepsonsive to painful and verbal stimuli clinical status still unchanged (5) CAD (coronary artery disease) Current Visit: Yes Status: Acute Comment: s/p cardiac cath with stenting Continue Plavix 75mg PO daily Continue ASA 325mg PO daily Continue lisinopril 5mg PO daily (6) STEMI (ST elevation myocardial infarction) Current Visit: Yes Status: Acute Comment: Continue Lisinopril 5mg PO daily Continue Plavix 75mg pO daily Continue ASA 325mg PO daily (7) Seizures Current Visit: Yes Status: Acute Comment: Dr. Garcia on case-help appreciated Continue Fosphenytoin 100mg IVP Q8 No seizure activity likley secondary to anoxic brain injury Continue to monitor for seizure activity (8) Leukocytosis Current Visit: Yes Status: Acute Comment: Afebrile UA shows infection Started on rocephin Urine culture positive for pseudomonas Baker changed yesterday Monitor (9) Baker catheter in place Current Visit: Yes Status: Acute Comment: needs to be changed on 07/26 (10) Prophylactic measure Current Visit: Yes Status: Acute Comment: Pepcid 20 mg PO q12 SCD's Plavix Miralax Colace BID <Wendi Mercedes R - Last Filed: 07/15/15 15:12> Subjective - Subjective Subjective: Medical Attending Note: Patient seen and examined by me this AM. Agree with resident HPI/Exam/A&P with appropriate additions and changes. All new labs reviewed by me. Patient s/p trach and PEG, Vent dependent. Patient unresponsive to verbal and painful stimuli. Patient afebrile. Unable to obtain review of systems from patient. Objective - Vital Signs/Intake and Output Vital Signs (last 24 hours): Vital Signs - 24 hr 07/14/15 07/14/15 07/15/15 15:14 21:43 06:45 Temperature 97.5 F L 96.9 F L 96.8 F L Pulse Rate 67 66 64 Respiratory 20 20 20 Rate Blood Pressure 100/70 120/72 103/64 O2 Sat by Pulse 100 100 100 Oximetry 07/15/15 07/15/15 08:52 13:11 Temperature 97.4 F L Pulse Rate 64 69 Respiratory 20 Rate Blood Pressure 99/67 L O2 Sat by Pulse 100 Oximetry Intake and Output (last 12 hours): Intake & Output 07/14/15 07/15/15 07/15/15 18:59 06:59 18:59 Intake Total 1050 1300 Output Total 700 1600 Balance 350 -300 Weight 108 lb Intake: Intake, IV Amount 250 600 Left Forearm 250 300 Left Forearm 300 Tube Feeding 600 600 Other 200 100 Output: Urine 700 1600 Urethral (Baker) 700 1600 Other: # Bowel Movements 1 1 - Medications Medications: Current Medications Aspirin (Aspirin) 325 mg PO DAILY [facility] Last Admin: 07/15/15 09:32 Dose: 325 mg Clopidogrel Bisulfate (Plavix) 75 mg PO DAILY [facility] Last Admin: 07/15/15 09:32 Dose: 75 mg Docusate Sodium (Colace Liquid) 100 mg PEG BID [facility] Last Admin: 07/15/15 09:32 Dose: 100 mg Famotidine (Pepcid) 20 mg PO BID [facility] Last Admin: 07/15/15 09:32 Dose: 20 mg Fosphenytoin Sodium 100 mg/ (Dextrose) 52 mls @ 100 mls/hr IV Q8H [facility] Last Admin: 07/15/15 12:54 Dose: 100 mls/hr Ciprofloxacin (Cipro 400mg/200ml Dsw) 200 mls @ 133 mls/hr IVPB Q12H [facility] Last Admin: 07/15/15 12:55 Dose: 133 mls/hr Lisinopril (Zestril) 5 mg PO DAILY [facility] Last Admin: 07/15/15 09:32 Dose: 5 mg Polyethylene Glycol (Miralax) 17 gm PO DAILY [facility] Last Admin: 07/15/15 09:32 Dose: 17 gm - Labs Labs (last 24 hours): Laboratory Results - last 24 hr 07/15/15 08:15 WBC 11.2 H RBC 3.40 L Hgb 10.4 L Hct 31.9 L MCV 93.8 MCH 30.6 MCHC 32.6 L RDW 14.3 Plt Count 340 MPV 8.2 Neut % (Auto) 75.8 H Lymph % (Auto) 9.3 L [place] % (Auto) 8.8 Eos % (Auto) 5.7 H Baso % (Auto) 0.4 Neut # 8.5 H Lymph # 1.0 [place] # 1.0 H Eos # 0.6 Baso # 0.0 Neutrophils % (Manual) 71 Band Neutrophils % 1 H Lymphocytes % (Manual) 12 L Monocytes % (Manual) 10 Eosinophils % (Manual) 6 H Platelet Estimate Normal Poikilocytosis (manual Slight Anisocytosis (manual) Slight Ovalocytes Slight Sodium 141 Potassium 3.8 Chloride 99 Carbon Dioxide 32 H Anion Gap 14 BUN 14 Creatinine 0.6 L Est GFR ( Amer) > 60 Est GFR (Non-Af Amer) > 60 Random Glucose 105 Calcium 8.6 Phosphorus 4.6 H Magnesium 2.3 Total Bilirubin 0.5 AST 83 H ALT 112 H Alkaline Phosphatase 157 H Total Protein 7.2 Albumin 3.0 L Globulin 4.2 H Albumin/Globulin Ratio 0.7 L - Constitutional Appears: No Acute Distress, Chronically Ill - Head Exam Head Exam: ATRAUMATIC, NORMOCEPHALIC - Eye Exam Eye Exam: absent: Scleral icterus - ENT Exam ENT Exam: Mucous Membranes Moist - Neck Exam Additional comments: Trach in place - Respiratory Exam Respiratory Exam: absent: Decreased Breath Sounds, Rales, Rhonchi, Wheezes - Cardiovascular Exam Cardiovascular Exam: REGULAR RHYTHM, +S1, +S2. absent: Diastolic murmur, Gallop , Rubs, Systolic Murmur - GI/Abdominal Exam GI & Abdominal Exam: Normal Bowel Sounds, Soft. absent: Distended Additional comments: PEG in place - Extremities Exam Extremities exam: pedal pulses present Additional comments: no c/c appreciated - Neurological Exam Neurological exam: absent: Alert Additional comments: Patient unresponsive to painful and verbal stimuli Spontaneous movements of arms and mouth - Skin Skin Exam: Dry, Warm Assessment/Plan (1) UTI (lower urinary tract infection) Current Visit: Yes Status: Acute Comment: baker catheter associated UTI Urine culture positive for Pseudomonas Continue cipro 400mg IVPB q12hrs Baker replaced 07/13/15 (2) Transaminitis Current Visit: Yes Status: Acute Comment: LFTs continue to be elevated Hepatitis panel negative continue to monitor LFTs (3) Anoxic encephalopathy Current Visit: Yes Status: Acute Comment: Spontaneous movements of mouth and limbs Unrepsonsive to painful and verbal stimuli Clinical status remains unchanged (4) Respiratory failure Current Visit: Yes Status: Acute Comment: Continue SIMV-tolerating well S/P trach Dr. Salgado - Pulmonology - help very much appreciated (5) Cardiac arrest Current Visit: Yes Status: Acute Comment: s/p V-Tach arrest Continue Plavix 75mg PO daily Continue ASA 325mg PO daily Continue Lisinopril 5mg PO daily (6) STEMI (ST elevation myocardial infarction) Current Visit: Yes Status: Acute Comment: Continue ASA 325mg PO daily Continue Lisinopril 5mg PO daily Continue Plavix 75mg pO daily (7) CAD (coronary artery disease) Current Visit: Yes Status: Acute Comment: s/p cardiac cath with stenting Continue Lisinopril 5mg PO daily Continue Plavix 75mg PO daily Continue ASA 325mg PO daily (8) Seizures Current Visit: Yes Status: Acute Comment: Dr. Garcia on case-help appreciated Continue Fosphenytoin 100mg IVP Q8 No seizure activity likley secondary to anoxic brain injury Monitor for seizure activity (9) Prophylactic measure Current Visit: Yes Status: Acute Comment: Pepcid 20 mg PO q12 SCD's Plavix Miralax Colace BID - Date & Time Date: 07/15/15 Time: 15:08 Attending/Attestation - Attestation I have personally seen and examined this patient.: Yes I have fully participated in the care of the patient.: Yes I have reviewed all pertinent clinical information: Yes
[2015-07-15] MEDS: Fosphenytoin 100 MG in Dextrose 5% In Water 50 ML IV SCH ×3 (03:47→20:27)
[2015-07-15 08:49] LABS: GFR NON-AFRICAN AMERICAN > 60
[2015-07-15 08:50] LABS: ALB/GLOB RATIO 0.7 (1.0-2.1); ALT/SGPT 112 U/L (21-72); AST/SGOT 83 U/L (17-59); BLOOD UREA NITROGEN 14 mg/dL (9-20)
[2015-07-15 08:51] LABS: CALCIUM 8.6 mg/dL (8.4-10.2)
[2015-07-15 08:53] LABS: BASO % 0.4 % (0.0-2.0); EOS # 0.6 K/uL (0.0-0.7); EOS % 5.7 % (0.0-4.0); HEMOGLOBIN 10.4 g/dL (12.0-18.0); LYMPH % 9.3 % (20.0-40.0); MEAN CELL VOLUME 93.8 fL (80.0-94.0); MEAN CORPUSCULAR HEMOGLOBIN 30.6 pg (27.0-31.0); MEAN CORPUSCULAR HGB CONC 32.6 g/dL (33.0-37.0); MEAN PLATELET VOLUME 8.2 fL (7.2-11.7); MONO % 8.8 % (0.0-10.0); NEUT # 8.5 K/uL (1.8-7.0); NEUT % 75.8 % (50.0-75.0); NRBC % 0.1 % (0.0-2.0); PLATELET COUNT 340 K/uL (130-400); RED CELL DISTRIBUTION WIDTH 14.3 % (11.5-14.5); WHITE BLOOD COUNT 11.2 K/uL (4.8-10.8)
[2015-07-15] MEDS: POLYETHYLENE GLYCOL 3350 17 GM/Dose PACKET PO SCH (09:32)
[2015-07-15 10:28] LABS: BANDS 1 % (0-0); EOSINOPHIL 6 % (0-4); LYMPHOCYTE 12 % (20-40); MONOCYTE 10 % (0-10); NEUTROPHIL 71 % (50-75); TOTAL CELLS COUNTED 100
[2015-07-15 10:29] LABS: ANISOCYTOSIS SLIGHT; OVALOCYTES SLIGHT; PLATELET ESTIMATE NORMAL (NORMAL); POIKILOCYTOSIS SLIGHT
[2015-07-15] MEDS: Ciprofloxacin 400mg/200ml D5W 200 ML IVPB SCH ×2 (12:55→23:18)
[2015-07-16] MEDS: Fosphenytoin 100 MG in Dextrose 5% In Water 50 ML IV SCH ×3 (04:12→20:10)
[2015-07-16 08:30] LABS: BASO % 0.4 % (0.0-2.0); EOS # 0.6 K/uL (0.0-0.7); EOS % 6.8 % (0.0-4.0); HEMOGLOBIN 10.6 g/dL (12.0-18.0); LYMPH # 1.1 K/uL (1.0-4.3); LYMPH % 11.5 % (20.0-40.0); MEAN CORPUSCULAR HGB CONC 33.4 g/dL (33.0-37.0); MEAN PLATELET VOLUME 7.9 fL (7.2-11.7); MONO # 0.9 K/uL (0.0-0.8); NEUT # 6.6 K/uL (1.8-7.0); NEUT % 71.3 % (50.0-75.0); RBC 3.4 Mil/uL (4.40-5.90); RED CELL DISTRIBUTION WIDTH 14.4 % (11.5-14.5); WHITE BLOOD COUNT 9.3 K/uL (4.8-10.8)
[2015-07-16 09:06] LABS: ALBUMIN 3.1 g/dL (3.5-5.0)
[2015-07-16 09:08] LABS: GFR NON-AFRICAN AMERICAN > 60
[2015-07-16 09:09] LABS: ALB/GLOB RATIO 0.7 (1.0-2.1); ALT/SGPT 117 U/L (21-72); AST/SGOT 78 U/L (17-59); BLOOD UREA NITROGEN 16 mg/dL (9-20); CALCIUM 8.6 mg/dL (8.4-10.2)
[2015-07-16] MEDS: POLYETHYLENE GLYCOL 3350 17 GM/Dose PACKET PO SCH (09:42)
[2015-07-16] MEDS: Ciprofloxacin 400mg/200ml D5W 200 ML IVPB SCH ×2 (11:14→22:55)
--- NOTE | 2015-07-16 18:24 | CP.PCM.PN ---
<ViryJudith H - Last Filed: 07/16/15 18:21> Subjective - Subjective Subjective: PGY1 Medicine Note: Patient seen and examined at bedside. Patient unresponsive to verbal and painful stimuli. Patient has spontaneous movements. Clinical status unchanged. Awaiting placement. Review of Systems - Review of Systems Systems not reviewed;Unavailable: Altered Mental Status Objective - Vital Signs/Intake and Output Vital Signs (last 24 hours): Vital Signs - 24 hr 07/15/15 07/16/15 07/16/15 21:54 05:49 11:09 Temperature 97.2 F L 98.1 F Pulse Rate 72 72 72 Respiratory 20 20 Rate Blood Pressure 118/72 132/81 O2 Sat by Pulse 98 100 Oximetry 07/16/15 14:20 Temperature 97 F L Pulse Rate 64 Respiratory 20 Rate Blood Pressure 97/64 L O2 Sat by Pulse 100 Oximetry Intake and Output (last 12 hours): Intake & Output 07/15/15 07/16/15 07/16/15 18:59 06:59 18:59 Intake Total 900 1000 1150 Output Total 700 1300 300 Balance 200 -300 850 Weight 108 lb 101 lb 101 lb Intake: Intake, IV Amount 300 250 Left Forearm 300 250 Tube Feeding 600 600 600 Other 300 100 300 Output: Urine 700 1300 300 Urethral (Yoo) 700 1300 300 Other: # Bowel Movements 1 1 0 - Medications Medications: Current Medications Aspirin (Aspirin) 325 mg PO DAILY [facility] Last Admin: 07/16/15 09:41 Dose: 325 mg Clopidogrel Bisulfate (Plavix) 75 mg PO DAILY [facility] Last Admin: 07/16/15 09:42 Dose: 75 mg Docusate Sodium (Colace Liquid) 100 mg PEG BID [facility] Last Admin: 07/16/15 17:13 Dose: 100 mg Famotidine (Pepcid) 20 mg PO BID [facility] Last Admin: 07/16/15 17:14 Dose: 20 mg Fluconazole (Diflucan) 100 mg PO DAILY [facility] Stop: 07/21/15 15:31 Last Admin: 07/16/15 17:13 Dose: Not Given Fosphenytoin Sodium 100 mg/ (Dextrose) 52 mls @ 100 mls/hr IV Q8H [facility] Last Admin: 07/16/15 12:00 Dose: 100 mls/hr Ciprofloxacin (Cipro 400mg/200ml Dsw) 200 mls @ 133 mls/hr IVPB Q12H [facility] Last Admin: 07/16/15 11:14 Dose: 133 mls/hr Lisinopril (Zestril) 5 mg PO DAILY [facility] Last Admin: 07/16/15 09:42 Dose: 5 mg Polyethylene Glycol (Miralax) 17 gm PO DAILY [facility] Last Admin: 07/16/15 09:42 Dose: 17 gm - Labs Labs (last 24 hours): Laboratory Results - last 24 hr 07/16/15 08:14 WBC 9.3 RBC 3.40 L Hgb 10.6 L Hct 31.7 L MCV 93.0 MCH 31.0 MCHC 33.4 RDW 14.4 Plt Count 343 MPV 7.9 Neut % (Auto) 71.3 Lymph % (Auto) 11.5 L [place] % (Auto) 10.0 Eos % (Auto) 6.8 H Baso % (Auto) 0.4 Neut # 6.6 Lymph # 1.1 [place] # 0.9 H Eos # 0.6 Baso # 0.0 Sodium 142 Potassium 4.3 Chloride 101 Carbon Dioxide 31 H Anion Gap 14 BUN 16 Creatinine 0.7 L Est GFR ( Amer) > 60 Est GFR (Non-Af Amer) > 60 Random Glucose 114 H Calcium 8.6 Phosphorus 4.8 H Magnesium 2.2 Total Bilirubin 0.3 AST 78 H ALT 117 H Alkaline Phosphatase 150 H Total Protein 7.3 Albumin 3.1 L Globulin 4.2 H Albumin/Globulin Ratio 0.7 L - Constitutional Appears: Chronically Ill - Head Exam Head Exam: NORMAL INSPECTION - Eye Exam Eye Exam: Normal appearance - ENT Exam Additional comments: oral candidiasis suspected - Respiratory Exam Respiratory Exam: Clear to PA & Lateral, NORMAL BREATHING PATTERN - Cardiovascular Exam Cardiovascular Exam: REGULAR RHYTHM, +S1, +S2 - GI/Abdominal Exam GI & Abdominal Exam: Normal Bowel Sounds, Soft - Extremities Exam Extremities exam: normal capillary refill. absent: pedal edema - Neurological Exam Neurological exam: Altered - Skin Skin Exam: Dry, Normal Color Assessment/Plan (1) Urinary tract infection Current Visit: Yes Status: Acute Comment: urine culture from 07/12 positive for pseudomonas most sensitive to ciprofloxacin Cipro 400mg Q12 started on 07/14 (2) Transaminitis Current Visit: Yes Status: Acute Comment: LFTs continue to be elevated Hepatitis panel negative continue to monitor LFTs (3) Respiratory failure Current Visit: Yes Status: Acute Comment: Continue SIMV-tolerating well - SIMV rate at 6 S/P trach Dr. Salgado - Pulmonology - help very much appreciated (4) Anoxic encephalopathy Current Visit: Yes Status: Acute Comment: Spontaneous movements of mouth and limbs Unrepsonsive to painful and verbal stimuli Clinical status remains unchanged (5) CAD (coronary artery disease) Current Visit: Yes Status: Acute Comment: s/p cardiac cath with stenting Continue Lisinopril 5mg PO daily Continue Plavix 75mg PO daily Continue ASA 325mg PO daily (6) STEMI (ST elevation myocardial infarction) Current Visit: Yes Status: Acute Comment: Continue ASA 325mg PO daily Continue Lisinopril 5mg PO daily Continue Plavix 75mg pO daily (7) Seizures Current Visit: Yes Status: Acute Comment: Dr. Garcia on case-help appreciated Continue Fosphenytoin 100mg IVP Q8 No seizure activity likley secondary to anoxic brain injury Monitor for seizure activity (8) Leukocytosis Current Visit: Yes Status: Acute Comment: Resolved Afebrile Urine culture positive for pseudomonas Cipro started on 07/14 Yoo changed yesterday Monitor (9) Yoo catheter in place Current Visit: Yes Status: Acute Comment: needs to be changed on 07/26 (10) Oral candidiasis Current Visit: Yes Status: Acute Comment: diflucan 100mg daily x 5 days (11) Prophylactic measure Current Visit: Yes Status: Acute Comment: Pepcid 20 mg PO q12 SCD's Plavix Miralax Colace BID <Rashel Rodrigues - Last Filed: 07/17/15 07:56> Objective - Vital Signs/Intake and Output Vital Signs (last 24 hours): Vital Signs - 24 hr 07/16/15 07/16/15 07/16/15 11:09 14:20 20:00 Temperature 97 F L Pulse Rate 72 64 70 Respiratory 20 Rate Blood Pressure 97/64 L O2 Sat by Pulse 100 Oximetry 07/16/15 07/17/15 22:15 05:42 Temperature 97.4 F L 97.3 F L Pulse Rate 70 78 Respiratory 20 18 Rate Blood Pressure 118/74 103/69 O2 Sat by Pulse 100 100 Oximetry Intake and Output (last 12 hours): Intake & Output 07/16/15 07/17/15 07/17/15 18:59 06:59 18:59 Intake Total 1150 1200 Output Total 300 1000 Balance 850 200 Weight 101 lb 103 lb Intake: Intake, IV Amount 250 400 Left Forearm 250 400 Tube Feeding 600 600 Other 300 200 Output: Urine 300 1000 Urethral (Yoo) 300 1000 Other: # Bowel Movements 0 2 - Medications Medications: Current Medications Aspirin (Aspirin) 325 mg PO DAILY [facility] Last Admin: 07/16/15 09:41 Dose: 325 mg Clopidogrel Bisulfate (Plavix) 75 mg PO DAILY [facility] Last Admin: 07/16/15 09:42 Dose: 75 mg Docusate Sodium (Colace Liquid) 100 mg PEG BID [facility] Last Admin: 07/16/15 17:13 Dose: 100 mg Famotidine (Pepcid) 20 mg PO BID [facility] Last Admin: 07/16/15 17:14 Dose: 20 mg Fluconazole (Diflucan) 100 mg PO DAILY [facility] Stop: 07/21/15 15:31 Last Admin: 07/16/15 17:13 Dose: Not Given Fosphenytoin Sodium 100 mg/ (Dextrose) 52 mls @ 100 mls/hr IV Q8H [facility] Last Admin: 07/17/15 03:55 Dose: 100 mls/hr Ciprofloxacin (Cipro 400mg/200ml Dsw) 200 mls @ 133 mls/hr IVPB Q12H [facility] Last Admin: 07/16/15 22:55 Dose: 133 mls/hr Lisinopril (Zestril) 5 mg PO DAILY [facility] Last Admin: 07/16/15 09:42 Dose: 5 mg Polyethylene Glycol (Miralax) 17 gm PO DAILY [facility] Last Admin: 07/16/15 09:42 Dose: 17 gm - Labs Labs (last 24 hours): Laboratory Results - last 24 hr 07/16/15 08:14 WBC 9.3 RBC 3.40 L Hgb 10.6 L Hct 31.7 L MCV 93.0 MCH 31.0 MCHC 33.4 RDW 14.4 Plt Count 343 MPV 7.9 Neut % (Auto) 71.3 Lymph % (Auto) 11.5 L [place] % (Auto) 10.0 Eos % (Auto) 6.8 H Baso % (Auto) 0.4 Neut # 6.6 Lymph # 1.1 [place] # 0.9 H Eos # 0.6 Baso # 0.0 Sodium 142 Potassium 4.3 Chloride 101 Carbon Dioxide 31 H Anion Gap 14 BUN 16 Creatinine 0.7 L Est GFR ( Amer) > 60 Est GFR (Non-Af Amer) > 60 Random Glucose 114 H Calcium 8.6 Phosphorus 4.8 H Magnesium 2.2 Total Bilirubin 0.3 AST 78 H ALT 117 H Alkaline Phosphatase 150 H Total Protein 7.3 Albumin 3.1 L Globulin 4.2 H Albumin/Globulin Ratio 0.7 L Attending/Attestation - Attestation I have personally seen and examined this patient.: Yes I have fully participated in the care of the patient.: Yes I have reviewed all pertinent clinical information: Yes Notes (Text): 07/17/15 07:56 (Late entry for 07/16/15) patient seen and exam during round with residents no new events, noted cont supportive care dc planning: pending placement
[2015-07-17] MEDS: Fosphenytoin 100 MG in Dextrose 5% In Water 50 ML IV SCH ×3 (03:55→20:10)
[2015-07-17 08:14] LABS: BASO % 0.4 % (0.0-2.0); EOS # 0.5 K/uL (0.0-0.7); EOS % 5.2 % (0.0-4.0); HEMOGLOBIN 11.1 g/dL (12.0-18.0); LYMPH % 10.2 % (20.0-40.0); MEAN CELL VOLUME 93.1 fL (80.0-94.0); MEAN CORPUSCULAR HEMOGLOBIN 31.2 pg (27.0-31.0); MEAN CORPUSCULAR HGB CONC 33.5 g/dL (33.0-37.0); MONO # 0.7 K/uL (0.0-0.8); MONO % 7.9 % (0.0-10.0); NEUT # 7.2 K/uL (1.8-7.0); NEUT % 76.3 % (50.0-75.0); RBC 3.54 Mil/uL (4.40-5.90); RED CELL DISTRIBUTION WIDTH 14.4 % (11.5-14.5); WHITE BLOOD COUNT 9.4 K/uL (4.8-10.8)
[2015-07-17 08:53] LABS: ALBUMIN 3.1 g/dL (3.5-5.0)
[2015-07-17 08:55] LABS: GFR NON-AFRICAN AMERICAN > 60
[2015-07-17 08:56] LABS: ALB/GLOB RATIO 0.7 (1.0-2.1); ALT/SGPT 132 U/L (21-72); AST/SGOT 86 U/L (17-59); BLOOD UREA NITROGEN 16 mg/dL (9-20)
[2015-07-17 08:57] LABS: CALCIUM 8.5 mg/dL (8.4-10.2)
--- NOTE | 2015-07-17 09:17 | CP.PCM.PN ---
<Judith Baires H - Last Filed: 07/17/15 13:33> Subjective - Subjective Subjective: PGY1 Medicine Note: Patient seen and examined at bedside. Patient unresponsive to verbal and painful stimuli. Patient has spontaneous movements. Clinical status unchanged. Awaiting placement. Review of Systems - Review of Systems Systems not reviewed;Unavailable: Altered Mental Status Objective - Vital Signs/Intake and Output Vital Signs (last 24 hours): Vital Signs - 24 hr 07/16/15 07/16/15 07/16/15 11:09 14:20 20:00 Temperature 97 F L Pulse Rate 72 64 70 Respiratory 20 Rate Blood Pressure 97/64 L O2 Sat by Pulse 100 Oximetry 07/16/15 07/17/15 22:15 05:42 Temperature 97.4 F L 97.3 F L Pulse Rate 70 78 Respiratory 20 18 Rate Blood Pressure 118/74 103/69 O2 Sat by Pulse 100 100 Oximetry Intake and Output (last 12 hours): Intake & Output 07/16/15 07/17/15 07/17/15 18:59 06:59 18:59 Intake Total 1150 1200 Output Total 300 1000 Balance 850 200 Weight 101 lb 103 lb Intake: Intake, IV Amount 250 400 Left Forearm 250 400 Tube Feeding 600 600 Other 300 200 Output: Urine 300 1000 Urethral (Yoo) 300 1000 Other: # Bowel Movements 0 2 - Medications Medications: Current Medications Aspirin (Aspirin) 325 mg PO DAILY [facility] Last Admin: 07/16/15 09:41 Dose: 325 mg Clopidogrel Bisulfate (Plavix) 75 mg PO DAILY [facility] Last Admin: 07/16/15 09:42 Dose: 75 mg Docusate Sodium (Colace Liquid) 100 mg PEG BID [facility] Last Admin: 07/16/15 17:13 Dose: 100 mg Famotidine (Pepcid) 20 mg PO BID [facility] Last Admin: 07/16/15 17:14 Dose: 20 mg Fluconazole (Diflucan) 100 mg PO DAILY [facility] Stop: 07/21/15 15:31 Last Admin: 07/16/15 17:13 Dose: Not Given Fosphenytoin Sodium 100 mg/ (Dextrose) 52 mls @ 100 mls/hr IV Q8H [facility] Last Admin: 07/17/15 03:55 Dose: 100 mls/hr Ciprofloxacin (Cipro 400mg/200ml Dsw) 200 mls @ 133 mls/hr IVPB Q12H [facility] Last Admin: 07/16/15 22:55 Dose: 133 mls/hr Lisinopril (Zestril) 5 mg PO DAILY [facility] Last Admin: 07/16/15 09:42 Dose: 5 mg Polyethylene Glycol (Miralax) 17 gm PO DAILY [facility] Last Admin: 07/16/15 09:42 Dose: 17 gm - Labs Labs (last 24 hours): Laboratory Results - last 24 hr 07/17/15 07:51 WBC 9.4 RBC 3.54 L Hgb 11.1 L Hct 33.0 L MCV 93.1 MCH 31.2 H MCHC 33.5 RDW 14.4 Plt Count 372 MPV 8.0 Neut % (Auto) 76.3 H Lymph % (Auto) 10.2 L [place] % (Auto) 7.9 Eos % (Auto) 5.2 H Baso % (Auto) 0.4 Neut # 7.2 H Lymph # 1.0 [place] # 0.7 Eos # 0.5 Baso # 0.0 Sodium 140 Potassium 4.0 Chloride 99 Carbon Dioxide 32 H Anion Gap 13 BUN 16 Creatinine 0.7 L Est GFR ( Amer) > 60 Est GFR (Non-Af Amer) > 60 Random Glucose 128 H Calcium 8.5 Phosphorus 4.4 Magnesium 2.3 Total Bilirubin 0.4 AST 86 H ALT 132 H Alkaline Phosphatase 163 H Total Protein 7.4 Albumin 3.1 L Globulin 4.3 H Albumin/Globulin Ratio 0.7 L - Constitutional Appears: Chronically Ill - Head Exam Head Exam: NORMAL INSPECTION - Eye Exam Eye Exam: Normal appearance, PERRL - ENT Exam ENT Exam: Mucous Membranes Moist Additional comments: white film on tongue - Respiratory Exam Respiratory Exam: Clear to PA & Lateral, NORMAL BREATHING PATTERN Additional comments: trach in place no bleeding or drainage PRVC resp rate 12 PEEP 5 TV 450 - Cardiovascular Exam Cardiovascular Exam: REGULAR RHYTHM, +S1, +S2 - GI/Abdominal Exam GI & Abdominal Exam: Normal Bowel Sounds, Soft Additional comments: peg in place - Extremities Exam Extremities exam: normal capillary refill. absent: pedal edema - Neurological Exam Neurological exam: Altered - Skin Skin Exam: Dry, Normal Color Assessment/Plan (1) Urinary tract infection Current Visit: Yes Status: Acute Comment: urine culture from 07/12 positive for pseudomonas most sensitive to ciprofloxacin Cipro 400mg Q12 started on 07/14 (2) Transaminitis Current Visit: Yes Status: Acute Comment: LFTs continue to be elevated Hepatitis panel negative continue to monitor LFTs (3) Respiratory failure Current Visit: Yes Status: Acute Comment: Continue SIMV-tolerating well - SIMV rate at 6 S/P trach Dr. Salgado - Pulmonology - help very much appreciated (4) Anoxic encephalopathy Current Visit: Yes Status: Acute Comment: Spontaneous movements of mouth and limbs Unrepsonsive to painful and verbal stimuli Clinical status remains unchanged (5) CAD (coronary artery disease) Current Visit: Yes Status: Acute Comment: s/p cardiac cath with stenting Continue Lisinopril 5mg PO daily Continue Plavix 75mg PO daily Continue ASA 325mg PO daily (6) STEMI (ST elevation myocardial infarction) Current Visit: Yes Status: Acute Comment: Continue ASA 325mg PO daily Continue Lisinopril 5mg PO daily Continue Plavix 75mg pO daily (7) Seizures Current Visit: Yes Status: Acute Comment: Dr. Garcia on case-help appreciated Continue Fosphenytoin 100mg IVP Q8 No seizure activity likley secondary to anoxic brain injury Monitor for seizure activity (8) Leukocytosis Current Visit: Yes Status: Acute Comment: Resolved Afebrile Urine culture positive for pseudomonas Cipro 400mg Q12 started on 07/14 Yoo changed yesterday Monitor (9) Yoo catheter in place Current Visit: Yes Status: Acute Comment: needs to be changed on 07/26 (10) Oral candidiasis Current Visit: Yes Status: Acute Comment: diflucan 100mg daily x 5 days started 07/16 (11) Prophylactic measure Current Visit: Yes Status: Acute Comment: Pepcid 20 mg PO q12 SCD's Plavix Miralax Colace BID <Rashel Rodrigues - Last Filed: 07/17/15 16:13> Objective - Vital Signs/Intake and Output Vital Signs (last 24 hours): Vital Signs - 24 hr 07/16/15 07/16/15 07/17/15 20:00 22:15 05:42 Temperature 97.4 F L 97.3 F L Pulse Rate 70 70 78 Respiratory 20 18 Rate Blood Pressure 118/74 103/69 O2 Sat by Pulse 100 100 Oximetry 07/17/15 07/17/15 10:51 15:07 Temperature 97.0 F L Pulse Rate 78 77 Respiratory 20 Rate Blood Pressure 100/71 O2 Sat by Pulse 99 Oximetry Intake and Output (last 12 hours): Intake & Output 07/16/15 07/17/15 07/17/15 18:59 06:59 18:59 Intake Total 1150 1200 Output Total 300 1000 300 Balance 850 200 -300 Weight 101 lb 103 lb Intake: Intake, IV Amount 250 400 Left Forearm 250 400 Tube Feeding 600 600 Other 300 200 Output: Urine 300 1000 300 Urethral (Yoo) 300 1000 300 Other: # Bowel Movements 0 2 - Medications Medications: Current Medications Aspirin (Aspirin) 325 mg PO DAILY [facility] Last Admin: 07/17/15 10:05 Dose: 325 mg Clopidogrel Bisulfate (Plavix) 75 mg PO DAILY [facility] Last Admin: 07/17/15 10:05 Dose: 75 mg Docusate Sodium (Colace Liquid) 100 mg PEG BID [facility] Last Admin: 07/17/15 10:05 Dose: 100 mg Famotidine (Pepcid) 20 mg PO BID [facility] Last Admin: 07/17/15 10:05 Dose: 20 mg Fluconazole (Diflucan) 100 mg PO DAILY [facility] Stop: 07/21/15 15:31 Last Admin: 07/17/15 10:05 Dose: 100 mg Fosphenytoin Sodium 100 mg/ (Dextrose) 52 mls @ 100 mls/hr IV Q8H [facility] Last Admin: 07/17/15 11:48 Dose: 100 mls/hr Ciprofloxacin (Cipro 400mg/200ml Dsw) 200 mls @ 133 mls/hr IVPB Q12H [facility] Last Admin: 07/17/15 10:48 Dose: 133 mls/hr Lisinopril (Zestril) 5 mg PO DAILY [facility] Last Admin: 07/17/15 10:05 Dose: 5 mg Polyethylene Glycol (Miralax) 17 gm PO DAILY [facility] Last Admin: 07/17/15 10:05 Dose: 17 gm - Labs Labs (last 24 hours): Laboratory Results - last 24 hr 07/17/15 07:51 WBC 9.4 RBC 3.54 L Hgb 11.1 L Hct 33.0 L MCV 93.1 MCH 31.2 H MCHC 33.5 RDW 14.4 Plt Count 372 MPV 8.0 Neut % (Auto) 76.3 H Lymph % (Auto) 10.2 L [place] % (Auto) 7.9 Eos % (Auto) 5.2 H Baso % (Auto) 0.4 Neut # 7.2 H Lymph # 1.0 [place] # 0.7 Eos # 0.5 Baso # 0.0 Sodium 140 Potassium 4.0 Chloride 99 Carbon Dioxide 32 H Anion Gap 13 BUN 16 Creatinine 0.7 L Est GFR ( Amer) > 60 Est GFR (Non-Af Amer) > 60 Random Glucose 128 H Calcium 8.5 Phosphorus 4.4 Magnesium 2.3 Total Bilirubin 0.4 AST 86 H ALT 132 H Alkaline Phosphatase 163 H Total Protein 7.4 Albumin 3.1 L Globulin 4.3 H Albumin/Globulin Ratio 0.7 L Attending/Attestation - Attestation I have personally seen and examined this patient.: Yes I have fully participated in the care of the patient.: Yes I have reviewed all pertinent clinical information: Yes Notes (Text): 07/17/15 16:13 Patient seen and exam during round with residents pt is remains unresponsive, pt is still on vent vent weaning as per Pulm cont PT, Nursing care
[2015-07-17] MEDS: POLYETHYLENE GLYCOL 3350 17 GM/Dose PACKET PO SCH (10:05)
[2015-07-17] MEDS: Ciprofloxacin 400mg/200ml D5W 200 ML IVPB SCH ×2 (10:48→22:45)
[2015-07-18] MEDS: Fosphenytoin 100 MG in Dextrose 5% In Water 50 ML IV SCH ×2 (03:30→11:36)
[2015-07-18 08:13] LABS: BASO % 0.4 % (0.0-2.0); EOS # 0.6 K/uL (0.0-0.7); EOS % 4.9 % (0.0-4.0); HEMOGLOBIN 10.6 g/dL (12.0-18.0); LYMPH # 1.1 K/uL (1.0-4.3); LYMPH % 8.5 % (20.0-40.0); MEAN CORPUSCULAR HEMOGLOBIN 30.6 pg (27.0-31.0); MEAN CORPUSCULAR HGB CONC 32.9 g/dL (33.0-37.0); MEAN PLATELET VOLUME 7.9 fL (7.2-11.7); MONO # 0.8 K/uL (0.0-0.8); MONO % 6.3 % (0.0-10.0); NEUT % 79.9 % (50.0-75.0); PLATELET COUNT 364 K/uL (130-400); RBC 3.46 Mil/uL (4.40-5.90); RED CELL DISTRIBUTION WIDTH 14.3 % (11.5-14.5); WHITE BLOOD COUNT 12.5 K/uL (4.8-10.8)
[2015-07-18 09:04] LABS: BASOPHIL 1 % (0-2); EOSINOPHIL 6 % (0-4); MONOCYTE 7 % (0-10); MYELOCYTE 1 % (0-0); NEUTROPHIL 79 % (50-75); PLATELET ESTIMATE NORMAL (NORMAL); TOTAL CELLS COUNTED 100
[2015-07-18 09:05] LABS: ANISOCYTOSIS SLIGHT; BANDS 1 % (0-0); HYPOCHROMIC SLIGHT; LYMPHOCYTE 5 % (20-40); POIKILOCYTOSIS SLIGHT
[2015-07-18 09:06] LABS: TOXIC GRANULATION PRESENT
[2015-07-18 09:09] LABS: ALB/GLOB RATIO 0.7 (1.0-2.1); ALT/SGPT 161 U/L (21-72); AST/SGOT 102 U/L (17-59); BLOOD UREA NITROGEN 16 mg/dL (9-20); GFR NON-AFRICAN AMERICAN > 60
[2015-07-18 09:10] LABS: CALCIUM 8.6 mg/dL (8.4-10.2)
[2015-07-18] MEDS: POLYETHYLENE GLYCOL 3350 17 GM/Dose PACKET PO SCH (09:25)
--- NOTE | 2015-07-18 09:34 | CP.PCM.PN ---
<Judith Baires H - Last Filed: 07/18/15 13:35> Subjective - Subjective Subjective: PGY1 Medicine Note: Patient seen and examined at bedside. Patient unresponsive to verbal and painful stimuli. Patient has spontaneous movements. Clinical status unchanged. Awaiting placement. Review of Systems - Review of Systems Systems not reviewed;Unavailable: Altered Mental Status Objective - Vital Signs/Intake and Output Vital Signs (last 24 hours): Vital Signs - 24 hr 07/17/15 07/17/15 07/17/15 10:51 15:07 20:00 Temperature 97.0 F L Pulse Rate 78 77 64 Respiratory 20 Rate Blood Pressure 100/71 O2 Sat by Pulse 99 Oximetry 07/17/15 07/18/15 21:45 05:41 Temperature 97 F L 97.2 F L Pulse Rate 64 65 Respiratory 18 20 Rate Blood Pressure 108/69 107/74 O2 Sat by Pulse 99 100 Oximetry Intake and Output (last 12 hours): Intake & Output 07/17/15 07/18/15 07/18/15 18:59 06:59 18:59 Intake Total 1150 1200 Output Total 300 1900 Balance 850 -700 Weight 108 lb 5 oz Intake: Intake, IV Amount 250 400 Left Forearm 250 400 Tube Feeding 600 600 Other 300 200 Output: Urine 300 1900 Urethral (Yoo) 300 1900 Other: # Bowel Movements 2 - Medications Medications: Current Medications Aspirin (Aspirin) 325 mg PO DAILY [facility] Last Admin: 07/18/15 09:26 Dose: 325 mg Clopidogrel Bisulfate (Plavix) 75 mg PO DAILY [facility] Last Admin: 07/18/15 09:26 Dose: 75 mg Docusate Sodium (Colace Liquid) 100 mg PEG BID [facility] Last Admin: 07/18/15 09:25 Dose: 100 mg Famotidine (Pepcid) 20 mg PO BID [facility] Last Admin: 07/18/15 09:26 Dose: 20 mg Fluconazole (Diflucan) 100 mg PO DAILY [facility] Stop: 07/21/15 15:31 Last Admin: 07/18/15 09:27 Dose: 100 mg Fosphenytoin Sodium 100 mg/ (Dextrose) 52 mls @ 100 mls/hr IV Q8H [facility] Last Admin: 07/18/15 03:30 Dose: 100 mls/hr Ciprofloxacin (Cipro 400mg/200ml Dsw) 200 mls @ 133 mls/hr IVPB Q12H [facility] Last Admin: 07/17/15 22:45 Dose: 133 mls/hr Lisinopril (Zestril) 5 mg PO DAILY [facility] Last Admin: 07/18/15 09:26 Dose: 5 mg Polyethylene Glycol (Miralax) 17 gm PO DAILY [facility] Last Admin: 07/18/15 09:25 Dose: 17 gm - Labs Labs (last 24 hours): Laboratory Results - last 24 hr 07/18/15 07:51 WBC 12.5 H RBC 3.46 L Hgb 10.6 L Hct 32.2 L MCV 93.0 MCH 30.6 MCHC 32.9 L RDW 14.3 Plt Count 364 MPV 7.9 Neut % (Auto) 79.9 H Lymph % (Auto) 8.5 L [place] % (Auto) 6.3 Eos % (Auto) 4.9 H Baso % (Auto) 0.4 Neut # 10.0 H Lymph # 1.1 [place] # 0.8 Eos # 0.6 Baso # 0.0 Neutrophils % (Manual) 79 H Band Neutrophils % 1 H Lymphocytes % (Manual) 5 L Monocytes % (Manual) 7 Eosinophils % (Manual) 6 H Basophils % (Manual) 1 Myelocytes % 1 H Toxic Granulation Present Platelet Estimate Normal Hypochromasia (manual) Slight Poikilocytosis (manual Slight Anisocytosis (manual) Slight Sodium 140 Potassium 4.0 Chloride 100 Carbon Dioxide 31 H Anion Gap 13 BUN 16 Creatinine 0.6 L Est GFR ( Amer) > 60 Est GFR (Non-Af Amer) > 60 Random Glucose 129 H Calcium 8.6 Phosphorus 4.2 Magnesium 2.2 Total Bilirubin 0.4 AST 102 H ALT 161 H D Alkaline Phosphatase 156 H Total Protein 7.4 Albumin 3.0 L Globulin 4.3 H Albumin/Globulin Ratio 0.7 L - Constitutional Appears: Chronically Ill - Head Exam Head Exam: NORMAL INSPECTION - Eye Exam Eye Exam: PERRL - Respiratory Exam Respiratory Exam: Clear to PA & Lateral, NORMAL BREATHING PATTERN, UNREMARKABLE Additional comments: trach in place clean dressing - Cardiovascular Exam Cardiovascular Exam: REGULAR RHYTHM, +S1, +S2 - GI/Abdominal Exam GI & Abdominal Exam: Normal Bowel Sounds, Soft Additional comments: peg in place no bleeding or drainage - Extremities Exam Extremities exam: normal capillary refill. absent: pedal edema - Neurological Exam Neurological exam: Altered - Skin Skin Exam: Dry, Normal Color Assessment/Plan (1) Urinary tract infection Current Visit: Yes Status: Acute Comment: urine culture from 07/12 positive for pseudomonas most sensitive to ciprofloxacin Cipro 400mg Q12 started on 07/14 F/U repeat urine Cx (2) Transaminitis Current Visit: Yes Status: Acute Comment: LFTs continue to be elevated Hepatitis panel negative continue to monitor LFTs (3) Respiratory failure Current Visit: Yes Status: Acute Comment: PRVC resp rate 12 S/P trach Dr. Salgado - Pulmonology - help very much appreciated (4) Anoxic encephalopathy Current Visit: Yes Status: Acute Comment: Spontaneous movements of mouth and limbs Unrepsonsive to painful and verbal stimuli Clinical status remains unchanged (5) CAD (coronary artery disease) Current Visit: Yes Status: Acute Comment: s/p cardiac cath with stenting Continue Lisinopril 5mg PO daily Continue Plavix 75mg PO daily Continue ASA 325mg PO daily (6) STEMI (ST elevation myocardial infarction) Current Visit: Yes Status: Acute Comment: Continue ASA 325mg PO daily Continue Lisinopril 5mg PO daily Continue Plavix 75mg pO daily (7) Seizures Current Visit: Yes Status: Acute Comment: Dr. Garcia on case-help appreciated Continue Fosphenytoin 100mg IVP Q8 No seizure activity likley secondary to anoxic brain injury Monitor for seizure activity (8) Leukocytosis Current Visit: Yes Status: Acute Comment: WBC 12.5 today 79.7% neutrophils F/U repeat urine Cx, CXR and sputum Cx Monitor temperature Afebrile Urine culture positive for pseudomonas Cipro 400mg Q12 started on 07/14 Yoo changed yesterday Monitor (9) Yoo catheter in place Current Visit: Yes Status: Acute Comment: needs to be changed on 07/26 (10) Oral candidiasis Current Visit: Yes Status: Acute Comment: diflucan 100mg daily x 5 days started 07/16 (11) Prophylactic measure Current Visit: Yes Status: Acute Comment: Pepcid 20 mg PO q12 SCD's Plavix Miralax Colace BID <Rashel Rodrigues - Last Filed: 07/18/15 16:04> Objective - Vital Signs/Intake and Output Vital Signs (last 24 hours): Vital Signs - 24 hr 07/17/15 07/17/15 07/18/15 20:00 21:45 05:41 Temperature 97 F L 97.2 F L Pulse Rate 64 64 65 Respiratory 18 20 Rate Blood Pressure 108/69 107/74 O2 Sat by Pulse 99 100 Oximetry 07/18/15 07/18/15 10:25 14:29 Temperature 97.6 F Pulse Rate 65 126 H Respiratory 20 Rate Blood Pressure 126/73 O2 Sat by Pulse 100 Oximetry Intake and Output (last 12 hours): Intake & Output 07/17/15 07/18/15 07/18/15 18:59 06:59 18:59 Intake Total 1150 1200 Output Total 300 1900 850 Balance 850 -700 -850 Weight 108 lb 5 oz Intake: Intake, IV Amount 250 400 Left Forearm 250 400 Tube Feeding 600 600 Other 300 200 Output: Urine 300 1900 850 Urethral (Yoo) 300 1900 850 Other: # Bowel Movements 2 - Medications Medications: Current Medications Aspirin (Aspirin) 325 mg PO DAILY [facility] Last Admin: 07/18/15 09:26 Dose: 325 mg Clopidogrel Bisulfate (Plavix) 75 mg PO DAILY [facility] Last Admin: 07/18/15 09:26 Dose: 75 mg Docusate Sodium (Colace Liquid) 100 mg PEG BID [facility] Last Admin: 07/18/15 09:25 Dose: 100 mg Famotidine (Pepcid) 20 mg PO BID [facility] Last Admin: 07/18/15 09:26 Dose: 20 mg Fluconazole (Diflucan) 100 mg PO DAILY [facility] Stop: 07/21/15 15:31 Last Admin: 07/18/15 09:27 Dose: 100 mg Ciprofloxacin (Cipro 400mg/200ml Dsw) 200 mls @ 133 mls/hr IVPB Q12H [facility] Last Admin: 07/18/15 10:40 Dose: 133 mls/hr Fosphenytoin Sodium 100 mg/ (Sodium Chloride) 52 mls @ 100 mls/hr IV Q8H [facility] Lisinopril (Zestril) 5 mg PO DAILY [facility] Last Admin: 07/18/15 09:26 Dose: 5 mg Polyethylene Glycol (Miralax) 17 gm PO DAILY [facility] Last Admin: 07/18/15 09:25 Dose: 17 gm - Labs Labs (last 24 hours): Laboratory Results - last 24 hr 07/18/15 07:51 WBC 12.5 H RBC 3.46 L Hgb 10.6 L Hct 32.2 L MCV 93.0 MCH 30.6 MCHC 32.9 L RDW 14.3 Plt Count 364 MPV 7.9 Neut % (Auto) 79.9 H Lymph % (Auto) 8.5 L [place] % (Auto) 6.3 Eos % (Auto) 4.9 H Baso % (Auto) 0.4 Neut # 10.0 H Lymph # 1.1 [place] # 0.8 Eos # 0.6 Baso # 0.0 Neutrophils % (Manual) 79 H Band Neutrophils % 1 H Lymphocytes % (Manual) 5 L Monocytes % (Manual) 7 Eosinophils % (Manual) 6 H Basophils % (Manual) 1 Myelocytes % 1 H Toxic Granulation Present Platelet Estimate Normal Hypochromasia (manual) Slight Poikilocytosis (manual Slight Anisocytosis (manual) Slight Sodium 140 Potassium 4.0 Chloride 100 Carbon Dioxide 31 H Anion Gap 13 BUN 16 Creatinine 0.6 L Est GFR ( Amer) > 60 Est GFR (Non-Af Amer) > 60 Random Glucose 129 H Calcium 8.6 Phosphorus 4.2 Magnesium 2.2 Total Bilirubin 0.4 AST 102 H ALT 161 H D Alkaline Phosphatase 156 H Total Protein 7.4 Albumin 3.0 L Globulin 4.3 H Albumin/Globulin Ratio 0.7 L Attending/Attestation - Attestation I have personally seen and examined this patient.: Yes I have fully participated in the care of the patient.: Yes I have reviewed all pertinent clinical information: Yes Notes (Text): 07/18/15 16:03 patient seen and exam during round with residents pt remains unresponsive, no fever spiking pt has incresaed WBC---> will get sputum induced for culture, UA, UC, CXR cont vent mx as per Pulm
[2015-07-18] MEDS: Ciprofloxacin 400mg/200ml D5W 200 ML IVPB SCH ×2 (10:40→23:01)
--- NOTE | 2015-07-18 13:36 | RAD ---
PROCEDURE: CHEST RADIOGRAPH, 1 VIEW HISTORY: rule out pneumonia COMPARISON: My most recent comparison 06/22/2015 FINDINGS: LUNGS: Clear. There is a tracheostomy tube in good location. PLEURA: No pneumothorax or pleural fluid seen. CARDIOVASCULAR: Normal. OSSEOUS STRUCTURES: No significant abnormalities. VISUALIZED UPPER ABDOMEN: Normal. OTHER FINDINGS: None. IMPRESSION: No active disease.
[2015-07-18] MEDS: Fosphenytoin 100 MG in Sodium Chloride 0.9% 50 ML IV SCH (20:58)
[2015-07-19] MEDS: Fosphenytoin 100 MG in Sodium Chloride 0.9% 50 ML IV SCH ×3 (04:36→20:00)
[2015-07-19 07:55] LABS: BASO % 0.5 % (0.0-2.0); EOS # 0.6 K/uL (0.0-0.7); EOS % 6.2 % (0.0-4.0); HEMOGLOBIN 11.3 g/dL (12.0-18.0); LYMPH # 1.2 K/uL (1.0-4.3); LYMPH % 12.9 % (20.0-40.0); MEAN CELL VOLUME 92.7 fL (80.0-94.0); MEAN CORPUSCULAR HEMOGLOBIN 30.8 pg (27.0-31.0); MEAN CORPUSCULAR HGB CONC 33.2 g/dL (33.0-37.0); MEAN PLATELET VOLUME 7.7 fL (7.2-11.7); MONO # 0.8 K/uL (0.0-0.8); MONO % 8.7 % (0.0-10.0); NEUT # 6.5 K/uL (1.8-7.0); NEUT % 71.7 % (50.0-75.0); RBC 3.66 Mil/uL (4.40-5.90); RED CELL DISTRIBUTION WIDTH 14.3 % (11.5-14.5)
[2015-07-19 09:04] LABS: ALB/GLOB RATIO 0.7 (1.0-2.1); ALBUMIN 3.2 g/dL (3.5-5.0); ALT/SGPT 156 U/L (21-72); AST/SGOT 89 U/L (17-59); BLOOD UREA NITROGEN 16 mg/dL (9-20); CALCIUM 8.7 mg/dL (8.4-10.2); GFR NON-AFRICAN AMERICAN > 60
--- NOTE | 2015-07-19 09:43 | CP.PCM.PN ---
<ViryJudith H - Last Filed: 07/19/15 09:43> Objective - Vital Signs/Intake and Output Vital Signs (last 24 hours): Vital Signs - 24 hr 07/18/15 07/18/15 07/18/15 10:25 14:29 21:26 Temperature 97.6 F 97.3 F L Pulse Rate 65 126 H 73 Respiratory 20 20 Rate Blood Pressure 126/73 101/64 O2 Sat by Pulse 100 100 Oximetry 07/19/15 06:20 Temperature 97.1 F L Pulse Rate 119 H Respiratory 20 Rate Blood Pressure 99/72 L O2 Sat by Pulse 98 Oximetry Intake and Output (last 12 hours): Intake & Output 07/18/15 07/19/15 07/19/15 18:59 06:59 18:59 Intake Total 1150 1000 Output Total 850 1100 Balance 300 -100 Weight 105 lb Intake: Intake, IV Amount 250 300 Left Forearm 250 300 Tube Feeding 600 600 Other 300 100 Output: Gastric Amount 0 Stomach 0 Urine 850 1100 Urethral (Yoo) 850 1100 Other: # Bowel Movements 1 - Medications Medications: Current Medications Aspirin (Aspirin) 325 mg PO DAILY [facility] Last Admin: 07/18/15 09:26 Dose: 325 mg Clopidogrel Bisulfate (Plavix) 75 mg PO DAILY [facility] Last Admin: 07/18/15 09:26 Dose: 75 mg Docusate Sodium (Colace Liquid) 100 mg PEG BID [facility] Last Admin: 07/18/15 17:11 Dose: 100 mg Famotidine (Pepcid) 20 mg PO BID [facility] Last Admin: 07/18/15 17:11 Dose: 20 mg Fluconazole (Diflucan) 100 mg PO DAILY [facility] Stop: 07/21/15 15:31 Last Admin: 07/18/15 09:27 Dose: 100 mg Ciprofloxacin (Cipro 400mg/200ml Dsw) 200 mls @ 133 mls/hr IVPB Q12H [facility] Last Admin: 07/18/15 23:01 Dose: 133 mls/hr Fosphenytoin Sodium 100 mg/ (Sodium Chloride) 52 mls @ 100 mls/hr IV Q8H [facility] Last Admin: 07/19/15 04:36 Dose: 100 mls/hr Lisinopril (Zestril) 5 mg PO DAILY [facility] Last Admin: 07/18/15 09:26 Dose: 5 mg Polyethylene Glycol (Miralax) 17 gm PO DAILY [facility] Last Admin: 07/18/15 09:25 Dose: 17 gm - Labs Labs (last 24 hours): Laboratory Results - last 24 hr 07/19/15 07:39 WBC 9.0 RBC 3.66 L Hgb 11.3 L Hct 33.9 L MCV 92.7 MCH 30.8 MCHC 33.2 RDW 14.3 Plt Count 375 MPV 7.7 Neut % (Auto) 71.7 Lymph % (Auto) 12.9 L [place] % (Auto) 8.7 Eos % (Auto) 6.2 H Baso % (Auto) 0.5 Neut # 6.5 Lymph # 1.2 [place] # 0.8 Eos # 0.6 Baso # 0.0 Sodium 140 Potassium 4.3 Chloride 101 Carbon Dioxide 31 H Anion Gap 12 BUN 16 Creatinine 0.6 L Est GFR ( Amer) > 60 Est GFR (Non-Af Amer) > 60 Random Glucose 95 Calcium 8.7 Phosphorus 4.5 Magnesium 2.3 Total Bilirubin 0.5 AST 89 H ALT 156 H Alkaline Phosphatase 165 H Total Protein 7.6 Albumin 3.2 L Globulin 4.4 H Albumin/Globulin Ratio 0.7 L Assessment/Plan (2) Urinary tract infection Current Visit: Yes Status: Acute Comment: urine culture from 07/12 positive for pseudomonas most sensitive to ciprofloxacin Cipro 400mg Q12 started on 07/14 F/U repeat urine Cx (3) Transaminitis Current Visit: Yes Status: Acute Comment: LFTs continue to be elevated Hepatitis panel negative continue to monitor LFTs (4) Respiratory failure Current Visit: Yes Status: Acute Comment: PRVC resp rate 12 S/P trach Dr. Salgado - Pulmonology - help very much appreciated (5) Anoxic encephalopathy Current Visit: Yes Status: Acute Comment: Spontaneous movements of mouth and limbs Unrepsonsive to painful and verbal stimuli Clinical status remains unchanged (6) CAD (coronary artery disease) Current Visit: Yes Status: Acute Comment: s/p cardiac cath with stenting Continue Lisinopril 5mg PO daily Continue Plavix 75mg PO daily Continue ASA 325mg PO daily (7) STEMI (ST elevation myocardial infarction) Current Visit: Yes Status: Acute Comment: Continue ASA 325mg PO daily Continue Lisinopril 5mg PO daily Continue Plavix 75mg pO daily (8) Seizures Current Visit: Yes Status: Acute Comment: Dr. Garcia on case-help appreciated Continue Fosphenytoin 100mg IVP Q8 No seizure activity likley secondary to anoxic brain injury Monitor for seizure activity (9) Leukocytosis Current Visit: Yes Status: Acute Comment: WBC 12.5 today 79.7% neutrophils F/U repeat urine Cx, CXR and sputum Cx Monitor temperature Afebrile Urine culture positive for pseudomonas Cipro 400mg Q12 started on 07/14 Yoo changed yesterday Monitor (10) Yoo catheter in place Current Visit: Yes Status: Acute Comment: needs to be changed on 07/26 (11) Oral candidiasis Current Visit: Yes Status: Acute Comment: diflucan 100mg daily x 5 days started 07/16 (12) Prophylactic measure Current Visit: Yes Status: Acute Comment: Pepcid 20 mg PO q12 SCD's Plavix Miralax Colace BID <Rashel Rodrigues - Last Filed: 07/19/15 16:59> Objective - Vital Signs/Intake and Output Vital Signs (last 24 hours): Vital Signs - 24 hr 07/18/15 07/19/15 07/19/15 21:26 06:20 11:29 Temperature 97.3 F L 97.1 F L Pulse Rate 73 119 H 68 Respiratory 20 20 Rate Blood Pressure 101/64 99/72 L 120/74 O2 Sat by Pulse 100 98 Oximetry Intake and Output (last 12 hours): Intake & Output 07/18/15 07/19/15 07/19/15 18:59 06:59 18:59 Intake Total 1150 1000 Output Total 850 1100 Balance 300 -100 Weight 105 lb Intake: Intake, IV Amount 250 300 Left Forearm 250 300 Tube Feeding 600 600 Other 300 100 Output: Gastric Amount 0 Stomach 0 Urine 850 1100 Urethral (Yoo) 850 1100 Other: # Bowel Movements 1 - Medications Medications: Current Medications Aspirin (Aspirin) 325 mg PO DAILY [facility] Last Admin: 07/19/15 11:20 Dose: 325 mg Clopidogrel Bisulfate (Plavix) 75 mg PO DAILY [facility] Last Admin: 07/19/15 11:20 Dose: 75 mg Docusate Sodium (Colace Liquid) 100 mg PEG BID [facility] Last Admin: 07/19/15 11:20 Dose: 100 mg Famotidine (Pepcid) 20 mg PO BID [facility] Last Admin: 07/19/15 11:20 Dose: 20 mg Fluconazole (Diflucan) 100 mg PO DAILY [facility] Stop: 07/21/15 15:31 Last Admin: 07/19/15 11:20 Dose: 100 mg Ciprofloxacin (Cipro 400mg/200ml Dsw) 200 mls @ 133 mls/hr IVPB Q12H [facility] Last Admin: 07/19/15 11:21 Dose: 133 mls/hr Fosphenytoin Sodium 100 mg/ (Sodium Chloride) 52 mls @ 100 mls/hr IV Q8H [facility] Last Admin: 07/19/15 13:13 Dose: 100 mls/hr Lisinopril (Zestril) 5 mg PO DAILY [facility] Last Admin: 07/19/15 11:20 Dose: 5 mg Polyethylene Glycol (Miralax) 17 gm PO DAILY [facility] Last Admin: 07/19/15 11:19 Dose: 17 gm - Labs Labs (last 24 hours): Laboratory Results - last 24 hr 07/19/15 07:39 WBC 9.0 RBC 3.66 L Hgb 11.3 L Hct 33.9 L MCV 92.7 MCH 30.8 MCHC 33.2 RDW 14.3 Plt Count 375 MPV 7.7 Neut % (Auto) 71.7 Lymph % (Auto) 12.9 L [place] % (Auto) 8.7 Eos % (Auto) 6.2 H Baso % (Auto) 0.5 Neut # 6.5 Lymph # 1.2 [place] # 0.8 Eos # 0.6 Baso # 0.0 Sodium 140 Potassium 4.3 Chloride 101 Carbon Dioxide 31 H Anion Gap 12 BUN 16 Creatinine 0.6 L Est GFR ( Amer) > 60 Est GFR (Non-Af Amer) > 60 Random Glucose 95 Calcium 8.7 Phosphorus 4.5 Magnesium 2.3 Total Bilirubin 0.5 AST 89 H ALT 156 H Alkaline Phosphatase 165 H Total Protein 7.6 Albumin 3.2 L Globulin 4.4 H Albumin/Globulin Ratio 0.7 L Attending/Attestation - Attestation I have personally seen and examined this patient.: Yes I have fully participated in the care of the patient.: Yes I have reviewed all pertinent clinical information: Yes Notes (Text): 07/19/15 16:58 patient seen and exam during round with residents pt is still on vent, less chest congestion pt remains unresponsive cont abx as per ID Vent mx as per Pulm
--- NOTE | 2015-07-19 11:14 | CP.PCM.PN ---
<Judith Baires H - Last Filed: 07/19/15 11:11> Subjective - Subjective Subjective: PGY1 Medicine Note: Patient seen and examined at bedside. Patient unresponsive to verbal and painful stimuli. Patient has spontaneous movements. Clinical status unchanged. Awaiting placement. Review of Systems - Review of Systems Systems not reviewed;Unavailable: Altered Mental Status Objective - Vital Signs/Intake and Output Vital Signs (last 24 hours): Vital Signs - 24 hr 07/18/15 07/18/15 07/19/15 14:29 21:26 06:20 Temperature 97.6 F 97.3 F L 97.1 F L Pulse Rate 126 H 73 119 H Respiratory 20 20 20 Rate Blood Pressure 126/73 101/64 99/72 L O2 Sat by Pulse 100 100 98 Oximetry Intake and Output (last 12 hours): Intake & Output 07/18/15 07/19/15 07/19/15 18:59 06:59 18:59 Intake Total 1150 1000 Output Total 850 1100 Balance 300 -100 Weight 105 lb Intake: Intake, IV Amount 250 300 Left Forearm 250 300 Tube Feeding 600 600 Other 300 100 Output: Gastric Amount 0 Stomach 0 Urine 850 1100 Urethral (Yoo) 850 1100 Other: # Bowel Movements 1 - Medications Medications: Current Medications Aspirin (Aspirin) 325 mg PO DAILY [facility] Last Admin: 07/18/15 09:26 Dose: 325 mg Clopidogrel Bisulfate (Plavix) 75 mg PO DAILY [facility] Last Admin: 07/18/15 09:26 Dose: 75 mg Docusate Sodium (Colace Liquid) 100 mg PEG BID [facility] Last Admin: 07/18/15 17:11 Dose: 100 mg Famotidine (Pepcid) 20 mg PO BID [facility] Last Admin: 07/18/15 17:11 Dose: 20 mg Fluconazole (Diflucan) 100 mg PO DAILY [facility] Stop: 07/21/15 15:31 Last Admin: 07/18/15 09:27 Dose: 100 mg Ciprofloxacin (Cipro 400mg/200ml Dsw) 200 mls @ 133 mls/hr IVPB Q12H [facility] Last Admin: 07/18/15 23:01 Dose: 133 mls/hr Fosphenytoin Sodium 100 mg/ (Sodium Chloride) 52 mls @ 100 mls/hr IV Q8H [facility] Last Admin: 07/19/15 04:36 Dose: 100 mls/hr Lisinopril (Zestril) 5 mg PO DAILY [facility] Last Admin: 07/18/15 09:26 Dose: 5 mg Polyethylene Glycol (Miralax) 17 gm PO DAILY [facility] Last Admin: 07/18/15 09:25 Dose: 17 gm - Labs Labs (last 24 hours): Laboratory Results - last 24 hr 07/19/15 07:39 WBC 9.0 RBC 3.66 L Hgb 11.3 L Hct 33.9 L MCV 92.7 MCH 30.8 MCHC 33.2 RDW 14.3 Plt Count 375 MPV 7.7 Neut % (Auto) 71.7 Lymph % (Auto) 12.9 L [place] % (Auto) 8.7 Eos % (Auto) 6.2 H Baso % (Auto) 0.5 Neut # 6.5 Lymph # 1.2 [place] # 0.8 Eos # 0.6 Baso # 0.0 Sodium 140 Potassium 4.3 Chloride 101 Carbon Dioxide 31 H Anion Gap 12 BUN 16 Creatinine 0.6 L Est GFR ( Amer) > 60 Est GFR (Non-Af Amer) > 60 Random Glucose 95 Calcium 8.7 Phosphorus 4.5 Magnesium 2.3 Total Bilirubin 0.5 AST 89 H ALT 156 H Alkaline Phosphatase 165 H Total Protein 7.6 Albumin 3.2 L Globulin 4.4 H Albumin/Globulin Ratio 0.7 L - Constitutional Appears: Chronically Ill - Head Exam Head Exam: NORMAL INSPECTION - Eye Exam Eye Exam: PERRL Pupil Exam: absent: Unequal - ENT Exam ENT Exam: Mucous Membranes Moist Additional comments: white tongue - Respiratory Exam Respiratory Exam: Rales (wet rales), NORMAL BREATHING PATTERN. absent: Accessory Muscle Use, Stridor - Cardiovascular Exam Cardiovascular Exam: REGULAR RHYTHM, +S1, +S2 - GI/Abdominal Exam GI & Abdominal Exam: Normal Bowel Sounds, Soft Additional comments: peg in place - Extremities Exam Extremities exam: normal capillary refill. absent: pedal edema Additional comments: right upper extremity edema - Neurological Exam Neurological exam: Altered - Skin Skin Exam: Normal Color. absent: Warm Assessment/Plan (1) Edema of upper extremity Current Visit: Yes Status: Acute Comment: F/U venous doppler (2) Urinary tract infection Current Visit: Yes Status: Acute Comment: urine culture from 07/12 positive for pseudomonas most sensitive to ciprofloxacin Cipro 400mg Q12 started on 07/14 F/U repeat urine Cx (3) Transaminitis Current Visit: Yes Status: Acute Comment: LFTs continue to be elevated Hepatitis panel negative continue to monitor LFTs (4) Respiratory failure Current Visit: Yes Status: Acute Comment: PRVC resp rate 12 S/P trach Dr. Salgado - Pulmonology - help very much appreciated (5) Anoxic encephalopathy Current Visit: Yes Status: Acute Comment: Spontaneous movements of mouth and limbs Unrepsonsive to painful and verbal stimuli Clinical status remains unchanged (6) CAD (coronary artery disease) Current Visit: Yes Status: Acute Comment: s/p cardiac cath with stenting Continue Lisinopril 5mg PO daily Continue Plavix 75mg PO daily Continue ASA 325mg PO daily (7) STEMI (ST elevation myocardial infarction) Current Visit: Yes Status: Acute Comment: Continue ASA 325mg PO daily Continue Lisinopril 5mg PO daily Continue Plavix 75mg pO daily (8) Seizures Current Visit: Yes Status: Acute Comment: Dr. Garcia on case-help appreciated Continue Fosphenytoin 100mg IVP Q8 No seizure activity likley secondary to anoxic brain injury Monitor for seizure activity (9) Leukocytosis Current Visit: Yes Status: Acute Comment: WBC 9 today resolved CXR - no active disease F/U repeat urine Cx, sputum Cx Monitor temperature Afebrile Urine culture positive for pseudomonas Cipro 400mg Q12 started on 07/14 Yoo changed yesterday Monitor (10) Yoo catheter in place Current Visit: Yes Status: Acute Comment: needs to be changed on 07/26 (11) Oral candidiasis Current Visit: Yes Status: Acute Comment: diflucan 100mg daily x 5 days started 07/16 (12) Prophylactic measure Current Visit: Yes Status: Acute Comment: Pepcid 20 mg PO q12 SCD's Plavix Miralax Colace BID <Rashel Rodrigues - Last Filed: 07/19/15 17:00> Objective - Vital Signs/Intake and Output Vital Signs (last 24 hours): Vital Signs - 24 hr 07/18/15 07/19/15 07/19/15 21:26 06:20 11:29 Temperature 97.3 F L 97.1 F L Pulse Rate 73 119 H 68 Respiratory 20 20 Rate Blood Pressure 101/64 99/72 L 120/74 O2 Sat by Pulse 100 98 Oximetry Intake and Output (last 12 hours): Intake & Output 07/18/15 07/19/15 07/19/15 18:59 06:59 18:59 Intake Total 1150 1000 Output Total 850 1100 Balance 300 -100 Weight 105 lb Intake: Intake, IV Amount 250 300 Left Forearm 250 300 Tube Feeding 600 600 Other 300 100 Output: Gastric Amount 0 Stomach 0 Urine 850 1100 Urethral (Yoo) 850 1100 Other: # Bowel Movements 1 - Medications Medications: Current Medications Aspirin (Aspirin) 325 mg PO DAILY [facility] Last Admin: 07/19/15 11:20 Dose: 325 mg Clopidogrel Bisulfate (Plavix) 75 mg PO DAILY [facility] Last Admin: 07/19/15 11:20 Dose: 75 mg Docusate Sodium (Colace Liquid) 100 mg PEG BID [facility] Last Admin: 07/19/15 11:20 Dose: 100 mg Famotidine (Pepcid) 20 mg PO BID [facility] Last Admin: 07/19/15 11:20 Dose: 20 mg Fluconazole (Diflucan) 100 mg PO DAILY [facility] Stop: 07/21/15 15:31 Last Admin: 07/19/15 11:20 Dose: 100 mg Ciprofloxacin (Cipro 400mg/200ml Dsw) 200 mls @ 133 mls/hr IVPB Q12H [facility] Last Admin: 07/19/15 11:21 Dose: 133 mls/hr Fosphenytoin Sodium 100 mg/ (Sodium Chloride) 52 mls @ 100 mls/hr IV Q8H [facility] Last Admin: 07/19/15 13:13 Dose: 100 mls/hr Lisinopril (Zestril) 5 mg PO DAILY [facility] Last Admin: 07/19/15 11:20 Dose: 5 mg Polyethylene Glycol (Miralax) 17 gm PO DAILY [facility] Last Admin: 07/19/15 11:19 Dose: 17 gm - Labs Labs (last 24 hours): Laboratory Results - last 24 hr 07/19/15 07:39 WBC 9.0 RBC 3.66 L Hgb 11.3 L Hct 33.9 L MCV 92.7 MCH 30.8 MCHC 33.2 RDW 14.3 Plt Count 375 MPV 7.7 Neut % (Auto) 71.7 Lymph % (Auto) 12.9 L [place] % (Auto) 8.7 Eos % (Auto) 6.2 H Baso % (Auto) 0.5 Neut # 6.5 Lymph # 1.2 [place] # 0.8 Eos # 0.6 Baso # 0.0 Sodium 140 Potassium 4.3 Chloride 101 Carbon Dioxide 31 H Anion Gap 12 BUN 16 Creatinine 0.6 L Est GFR ( Amer) > 60 Est GFR (Non-Af Amer) > 60 Random Glucose 95 Calcium 8.7 Phosphorus 4.5 Magnesium 2.3 Total Bilirubin 0.5 AST 89 H ALT 156 H Alkaline Phosphatase 165 H Total Protein 7.6 Albumin 3.2 L Globulin 4.4 H Albumin/Globulin Ratio 0.7 L Attending/Attestation - Attestation I have personally seen and examined this patient.: Yes I have fully participated in the care of the patient.: Yes I have reviewed all pertinent clinical information: Yes Notes (Text): 07/19/15 17:00 patient seen and exam during round with residents pt is still on vent, less chest congestion pt remains unresponsive cont abx as per ID Vent mx as per Pulm
[2015-07-19] MEDS: POLYETHYLENE GLYCOL 3350 17 GM/Dose PACKET PO SCH (11:19)
[2015-07-19] MEDS: Ciprofloxacin 400mg/200ml D5W 200 ML IVPB SCH ×2 (11:21→23:00)
[2015-07-20] MEDS: Fosphenytoin 100 MG in Sodium Chloride 0.9% 50 ML IV SCH ×3 (04:00→20:12)
[2015-07-20 08:16] LABS: BASO % 0.4 % (0.0-2.0); EOS # 0.5 K/uL (0.0-0.7); EOS % 4.3 % (0.0-4.0); HEMOGLOBIN 10.8 g/dL (12.0-18.0); LYMPH % 8.8 % (20.0-40.0); MEAN CELL VOLUME 93.7 fL (80.0-94.0); MEAN CORPUSCULAR HEMOGLOBIN 30.3 pg (27.0-31.0); MEAN CORPUSCULAR HGB CONC 32.4 g/dL (33.0-37.0); MEAN PLATELET VOLUME 7.8 fL (7.2-11.7); MONO # 0.7 K/uL (0.0-0.8); MONO % 6.4 % (0.0-10.0); NEUT # 9.2 K/uL (1.8-7.0); NEUT % 80.1 % (50.0-75.0); PLATELET COUNT 350 K/uL (130-400); RBC 3.57 Mil/uL (4.40-5.90); RED CELL DISTRIBUTION WIDTH 14.3 % (11.5-14.5); WHITE BLOOD COUNT 11.4 K/uL (4.8-10.8)
[2015-07-20 08:39] LABS: ALB/GLOB RATIO 0.7 (1.0-2.1); ALT/SGPT 156 U/L (21-72); AST/SGOT 83 U/L (17-59); BLOOD UREA NITROGEN 16 mg/dL (9-20); GFR NON-AFRICAN AMERICAN > 60
[2015-07-20 08:40] LABS: CALCIUM 8.5 mg/dL (8.4-10.2)
[2015-07-20 09:24] LABS: BANDS 1 % (0-0); EOSINOPHIL 4 % (0-4); LYMPHOCYTE 5 % (20-40); MONOCYTE 5 % (0-10); NEUTROPHIL 85 % (50-75); TOTAL CELLS COUNTED 100
[2015-07-20 09:25] LABS: ANISOCYTOSIS SLIGHT; HYPOCHROMIC SLIGHT; PLATELET ESTIMATE NORMAL (NORMAL); POIKILOCYTOSIS SLIGHT; TOXIC GRANULATION PRESENT
[2015-07-20] MEDS: POLYETHYLENE GLYCOL 3350 17 GM/Dose PACKET PO SCH (10:23)
[2015-07-20] MEDS: Ciprofloxacin 400mg/200ml D5W 200 ML IVPB SCH (10:32)
--- NOTE | 2015-07-20 14:09 | CP.PCM.PN ---
<Judith Baires H - Last Filed: 07/20/15 14:06> Subjective - Subjective Subjective: PGY1 Medicine Note: Patient seen and examined at bedside. Patient unresponsive to verbal and painful stimuli. Patient has spontaneous movements. Clinical status unchanged. Awaiting placement. Review of Systems - Review of Systems Systems not reviewed;Unavailable: Altered Mental Status Objective - Vital Signs/Intake and Output Vital Signs (last 24 hours): Vital Signs - 24 hr 07/19/15 07/20/15 07/20/15 21:50 05:39 08:17 Temperature 97.5 F L 97.6 F Pulse Rate 73 68 68 Respiratory 20 20 Rate Blood Pressure 100/67 112/64 O2 Sat by Pulse 100 100 Oximetry Intake and Output (last 12 hours): Intake & Output 07/19/15 07/20/15 07/20/15 18:59 06:59 18:59 Intake Total 1850 Output Total 1400 400 Balance 450 -400 Weight 105 lb Intake: Intake, IV Amount 550 Left Forearm 250 Left Hand 300 Tube Feeding 1200 Other 100 Output: Urine 1400 400 Urethral (Yoo) 1400 400 Other: # Bowel Movements 1 - Medications Medications: Current Medications Aspirin (Aspirin) 325 mg PO DAILY [facility] Last Admin: 07/20/15 10:23 Dose: 325 mg Clopidogrel Bisulfate (Plavix) 75 mg PO DAILY [facility] Last Admin: 07/20/15 10:23 Dose: 75 mg Docusate Sodium (Colace Liquid) 100 mg PEG BID [facility] Last Admin: 07/20/15 10:23 Dose: 100 mg Enoxaparin Sodium (Lovenox) 40 mg SC DAILY [facility] Famotidine (Pepcid) 20 mg PO BID [facility] Last Admin: 07/20/15 10:23 Dose: 20 mg Fluconazole (Diflucan) 100 mg PO DAILY [facility] Stop: 07/21/15 15:31 Last Admin: 07/20/15 10:42 Dose: 100 mg Fosphenytoin Sodium 100 mg/ (Sodium Chloride) 52 mls @ 100 mls/hr IV Q8H [facility] Last Admin: 07/20/15 11:22 Dose: 100 mls/hr Lisinopril (Zestril) 5 mg PO DAILY [facility] Last Admin: 07/20/15 10:23 Dose: 5 mg Polyethylene Glycol (Miralax) 17 gm PO DAILY [facility] Last Admin: 07/20/15 10:23 Dose: 17 gm - Labs Labs (last 24 hours): Laboratory Results - last 24 hr 07/20/15 07:42 WBC 11.4 H RBC 3.57 L Hgb 10.8 L Hct 33.5 L MCV 93.7 MCH 30.3 MCHC 32.4 L RDW 14.3 Plt Count 350 MPV 7.8 Neut % (Auto) 80.1 H Lymph % (Auto) 8.8 L [place] % (Auto) 6.4 Eos % (Auto) 4.3 H Baso % (Auto) 0.4 Neut # 9.2 H Lymph # 1.0 [place] # 0.7 Eos # 0.5 Baso # 0.0 Neutrophils % (Manual) 85 H Band Neutrophils % 1 H Lymphocytes % (Manual) 5 L Monocytes % (Manual) 5 Eosinophils % (Manual) 4 Toxic Granulation Present Platelet Estimate Normal Hypochromasia (manual) Slight Poikilocytosis (manual Slight Anisocytosis (manual) Slight Sodium 140 Potassium 3.9 Chloride 100 Carbon Dioxide 31 H Anion Gap 13 BUN 16 Creatinine 0.6 L Est GFR ( Amer) > 60 Est GFR (Non-Af Amer) > 60 Random Glucose 139 H Calcium 8.5 Phosphorus 3.9 Magnesium 2.2 Total Bilirubin 0.4 AST 83 H ALT 156 H Alkaline Phosphatase 160 H Total Protein 7.2 Albumin 3.0 L Globulin 4.2 H Albumin/Globulin Ratio 0.7 L - Constitutional Appears: Chronically Ill - Head Exam Head Exam: NORMAL INSPECTION - ENT Exam ENT Exam: Mucous Membranes Moist Additional comments: white film on tongue - Respiratory Exam Respiratory Exam: Rales, NORMAL BREATHING PATTERN. absent: Accessory Muscle Use , Stridor - Cardiovascular Exam Cardiovascular Exam: REGULAR RHYTHM, +S1, +S2 - GI/Abdominal Exam GI & Abdominal Exam: Normal Bowel Sounds, Soft. 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 back (2) Thrombophlebitis of superficial veins of upper extremities Current Visit: Yes Status: Acute Comment: Venous doppler - thrombosis of right cephalic vein (superficial) Lovenox 40mg SC daily Warm compresses to area 15 minutes, 3x a day (3) Edema of upper extremity Current Visit: Yes Status: Acute Comment: Venous doppler - thrombosis of right cephalic vein (superficial) see above plan (4) Urinary tract infection Current Visit: Yes Status: Acute Comment: resolved urine culture from 07/18 no growth urine culture from 07/12 positive for pseudomonas most sensitive to ciprofloxacin Cipro 400mg Q12 started on 07/14 (5) Transaminitis Current Visit: Yes Status: Acute Comment: LFTs continue to be elevated Hepatitis panel negative continue to monitor LFTs (6) Respiratory failure Current Visit: Yes Status: Acute Comment: PRVC resp rate 12 S/P trach Dr. Salgado - Pulmonology - help very much appreciated (7) Anoxic encephalopathy Current Visit: Yes Status: Acute Comment: Spontaneous movements of mouth and limbs Unrepsonsive to painful and verbal stimuli Clinical status remains unchanged (8) CAD (coronary artery disease) Current Visit: Yes Status: Acute Comment: s/p cardiac cath with stenting Continue Lisinopril 5mg PO daily Continue Plavix 75mg PO daily Continue ASA 325mg PO daily (9) STEMI (ST elevation myocardial infarction) Current Visit: Yes Status: Acute Comment: Continue ASA 325mg PO daily Continue Lisinopril 5mg PO daily Continue Plavix 75mg pO daily (10) Seizures Current Visit: Yes Status: Acute Comment: Dr. Garcia on case-help appreciated Continue Fosphenytoin 100mg IVP Q8 No seizure activity likley secondary to anoxic brain injury Monitor for seizure activity (11) Leukocytosis Current Visit: Yes Status: Acute Comment: WBC 9 today resolved CXR - no active disease F/U repeat urine Cx, sputum Cx Monitor temperature Afebrile Urine culture positive for pseudomonas Cipro 400mg Q12 started on 07/14 Yoo changed yesterday Monitor (12) Yoo catheter in place Current Visit: Yes Status: Acute Comment: needs to be changed on 07/26 (13) Oral candidiasis Current Visit: Yes Status: Acute Comment: diflucan 100mg daily x 5 days started 07/16 (14) Prophylactic measure Current Visit: Yes Status: Acute Comment: Pepcid 20 mg PO q12 SCD's Plavix Miralax Colace BID <Rashel Rodrigues - Last Filed: 07/20/15 16:22> Objective - Vital Signs/Intake and Output Vital Signs (last 24 hours): Vital Signs - 24 hr 07/19/15 07/20/15 07/20/15 21:50 05:39 08:17 Temperature 97.5 F L 97.6 F Pulse Rate 73 68 68 Respiratory 20 20 Rate Blood Pressure 100/67 112/64 O2 Sat by Pulse 100 100 Oximetry 07/20/15 15:04 Temperature 97.0 F L Pulse Rate 75 Respiratory 20 Rate Blood Pressure O2 Sat by Pulse 99 Oximetry Intake and Output (last 12 hours): Intake & Output 07/19/15 07/20/15 07/20/15 18:59 06:59 18:59 Intake Total 1850 Output Total 1400 900 Balance 450 -900 Weight 105 lb Intake: Intake, IV Amount 550 Left Forearm 250 Left Hand 300 Tube Feeding 1200 Other 100 Output: Urine 1400 900 Urethral (Yoo) 1400 900 Other: # Bowel Movements 1 - Medications Medications: Current Medications Aspirin (Aspirin) 325 mg PO DAILY [facility] Last Admin: 07/20/15 10:23 Dose: 325 mg Clopidogrel Bisulfate (Plavix) 75 mg PO DAILY [facility] Last Admin: 07/20/15 10:23 Dose: 75 mg Docusate Sodium (Colace Liquid) 100 mg PEG BID [facility] Last Admin: 07/20/15 10:23 Dose: 100 mg Enoxaparin Sodium (Lovenox) 40 mg SC DAILY [facility] Famotidine (Pepcid) 20 mg PO BID [facility] Last Admin: 07/20/15 10:23 Dose: 20 mg Fluconazole (Diflucan) 100 mg PO DAILY [facility] Stop: 07/21/15 15:31 Last Admin: 07/20/15 10:42 Dose: 100 mg Fosphenytoin Sodium 100 mg/ (Sodium Chloride) 52 mls @ 100 mls/hr IV Q8H [facility] Last Admin: 07/20/15 11:22 Dose: 100 mls/hr Lisinopril (Zestril) 5 mg PO DAILY [facility] Last Admin: 07/20/15 10:23 Dose: 5 mg Polyethylene Glycol (Miralax) 17 gm PO DAILY [facility] Last Admin: 07/20/15 10:23 Dose: 17 gm - Labs Labs (last 24 hours): Laboratory Results - last 24 hr 07/20/15 07:42 WBC 11.4 H RBC 3.57 L Hgb 10.8 L Hct 33.5 L MCV 93.7 MCH 30.3 MCHC 32.4 L RDW 14.3 Plt Count 350 MPV 7.8 Neut % (Auto) 80.1 H Lymph % (Auto) 8.8 L [place] % (Auto) 6.4 Eos % (Auto) 4.3 H Baso % (Auto) 0.4 Neut # 9.2 H Lymph # 1.0 [place] # 0.7 Eos # 0.5 Baso # 0.0 Neutrophils % (Manual) 85 H Band Neutrophils % 1 H Lymphocytes % (Manual) 5 L Monocytes % (Manual) 5 Eosinophils % (Manual) 4 Toxic Granulation Present Platelet Estimate Normal Hypochromasia (manual) Slight Poikilocytosis (manual Slight Anisocytosis (manual) Slight Sodium 140 Potassium 3.9 Chloride 100 Carbon Dioxide 31 H Anion Gap 13 BUN 16 Creatinine 0.6 L Est GFR ( Amer) > 60 Est GFR (Non-Af Amer) > 60 Random Glucose 139 H Calcium 8.5 Phosphorus 3.9 Magnesium 2.2 Total Bilirubin 0.4 AST 83 H ALT 156 H Alkaline Phosphatase 160 H Total Protein 7.2 Albumin 3.0 L Globulin 4.2 H Albumin/Globulin Ratio 0.7 L Attending/Attestation - Attestation I have personally seen and examined this patient.: Yes I have fully participated in the care of the patient.: Yes I have reviewed all pertinent clinical information: Yes Notes (Text): 07/20/15 16:22 pt seen and exam during round with residents pt remains on vent unresponsive less chest congestion fu sputum cultures--- GNR
[2015-07-20] MEDS: Enoxaparin 40 mg Syringe SC SCH (17:34)
--- NOTE | 2015-07-21 01:25 | CP.PCM.PN ---
Subjective - Subjective Subjective: PGY1 Medicine Note Patient seen and examined. Patient was unresponsive to verbal or physical stimuli. Patient did not open eyes. No acute improvement in mental status. ROS unattainable due to chronic condition. Review of Systems - Review of Systems Systems not reviewed;Unavailable: Altered Mental Status Objective - Vital Signs/Intake and Output Vital Signs (last 24 hours): Vital Signs - 24 hr 07/20/15 07/20/15 07/20/15 05:39 08:17 15:04 Temperature 97.6 F 97.0 F L Pulse Rate 68 68 75 Respiratory 20 20 Rate Blood Pressure 112/64 O2 Sat by Pulse 100 99 Oximetry 07/20/15 22:00 Temperature 96.9 F L Pulse Rate 66 Respiratory 18 Rate Blood Pressure 109/67 O2 Sat by Pulse 96 Oximetry Intake and Output (last 12 hours): Intake & Output 07/20/15 07/20/15 07/21/15 06:59 18:59 06:59 Intake Total 1850 1150 Output Total 1400 900 400 Balance 450 250 -400 Weight 105 lb Intake: Intake, IV Amount 550 250 Left Forearm 250 250 Left Hand 300 Tube Feeding 1200 600 Other 100 300 Output: Urine 1400 900 400 Urethral (Yoo) 1400 900 400 Other: # Bowel Movements 1 - Medications Medications: Current Medications Aspirin (Aspirin) 325 mg PO DAILY [facility] Last Admin: 07/20/15 10:23 Dose: 325 mg Clopidogrel Bisulfate (Plavix) 75 mg PO DAILY [facility] Last Admin: 07/20/15 10:23 Dose: 75 mg Docusate Sodium (Colace Liquid) 100 mg PEG BID [facility] Last Admin: 07/20/15 17:16 Dose: 100 mg Enoxaparin Sodium (Lovenox) 40 mg SC DAILY [facility] Last Admin: 07/20/15 17:34 Dose: 40 mg Famotidine (Pepcid) 20 mg PO BID [facility] Last Admin: 07/20/15 17:16 Dose: 20 mg Fluconazole (Diflucan) 100 mg PO DAILY [facility] Stop: 07/21/15 15:31 Last Admin: 07/20/15 10:42 Dose: 100 mg Fosphenytoin Sodium 100 mg/ (Sodium Chloride) 52 mls @ 100 mls/hr IV Q8H [facility] Last Admin: 07/20/15 20:12 Dose: 100 mls/hr Lisinopril (Zestril) 5 mg PO DAILY [facility] Last Admin: 07/20/15 10:23 Dose: 5 mg Polyethylene Glycol (Miralax) 17 gm PO DAILY [facility] Last Admin: 07/20/15 10:23 Dose: 17 gm - Labs Labs (last 24 hours): Laboratory Results - last 24 hr 07/20/15 07:42 WBC 11.4 H RBC 3.57 L Hgb 10.8 L Hct 33.5 L MCV 93.7 MCH 30.3 MCHC 32.4 L RDW 14.3 Plt Count 350 MPV 7.8 Neut % (Auto) 80.1 H Lymph % (Auto) 8.8 L [place] % (Auto) 6.4 Eos % (Auto) 4.3 H Baso % (Auto) 0.4 Neut # 9.2 H Lymph # 1.0 [place] # 0.7 Eos # 0.5 Baso # 0.0 Neutrophils % (Manual) 85 H Band Neutrophils % 1 H Lymphocytes % (Manual) 5 L Monocytes % (Manual) 5 Eosinophils % (Manual) 4 Toxic Granulation Present Platelet Estimate Normal Hypochromasia (manual) Slight Poikilocytosis (manual Slight Anisocytosis (manual) Slight Sodium 140 Potassium 3.9 Chloride 100 Carbon Dioxide 31 H Anion Gap 13 BUN 16 Creatinine 0.6 L Est GFR ( Amer) > 60 Est GFR (Non-Af Amer) > 60 Random Glucose 139 H Calcium 8.5 Phosphorus 3.9 Magnesium 2.2 Total Bilirubin 0.4 AST 83 H ALT 156 H Alkaline Phosphatase 160 H Total Protein 7.2 Albumin 3.0 L Globulin 4.2 H Albumin/Globulin Ratio 0.7 L - Constitutional Appears: Chronically Ill - Head Exam Head Exam: ATRAUMATIC, NORMAL INSPECTION, NORMOCEPHALIC - ENT Exam ENT Exam: Mucous Membranes Moist - Respiratory Exam Respiratory Exam: Rales, NORMAL BREATHING PATTERN - Cardiovascular Exam Cardiovascular Exam: REGULAR RHYTHM, +S1, +S2. absent: Diastolic murmur, Systolic Murmur - GI/Abdominal Exam GI & Abdominal Exam: Normal Bowel Sounds, Soft. absent: Distended, Firm - Extremities Exam Extremities exam: absent: pedal edema Additional comments: Right upper extremity edema - Neurological Exam Neurological exam: Altered. 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 back (2) Thrombophlebitis of superficial veins of upper extremities Current Visit: Yes Status: Acute Comment: Venous doppler - thrombosis of right cephalic vein (superficial) Lovenox 40mg SC daily Warm compresses to area 15 minutes, 3x a day (3) Edema of upper extremity Current Visit: Yes Status: Acute Comment: Venous doppler - thrombosis of right cephalic vein (superficial) see above plan (4) Urinary tract infection Current Visit: Yes Status: Acute Comment: resolved urine culture from 07/18 no growth urine culture from 07/12 positive for pseudomonas most sensitive to ciprofloxacin Cipro 400mg Q12 started on 07/14 (5) Transaminitis Current Visit: Yes Status: Acute Comment: LFTs continue to be elevated Hepatitis panel negative continue to monitor LFTs (6) Respiratory failure Current Visit: Yes Status: Acute Comment: PRVC resp rate 12 S/P trach Dr. Salgado - Pulmonology - help very much appreciated (7) Anoxic encephalopathy Current Visit: Yes Status: Acute Comment: Spontaneous movements of mouth and limbs Unrepsonsive to painful and verbal stimuli Clinical status remains unchanged (8) CAD (coronary artery disease) Current Visit: Yes Status: Acute Comment: s/p cardiac cath with stenting Continue Lisinopril 5mg PO daily Continue Plavix 75mg PO daily Continue ASA 325mg PO daily (9) STEMI (ST elevation myocardial infarction) Current Visit: Yes Status: Acute Comment: Continue ASA 325mg PO daily Continue Lisinopril 5mg PO daily Continue Plavix 75mg pO daily (10) Seizures Current Visit: Yes Status: Acute Comment: Dr. Garcia on case-help appreciated Continue Fosphenytoin 100mg IVP Q8 No seizure activity janiceley secondary to anoxic brain injury Monitor for seizure activity (11) Leukocytosis Current Visit: Yes Status: Acute Comment: WBC 9 today resolved CXR - no active disease F/U repeat urine Cx, sputum Cx Monitor temperature Afebrile Urine culture positive for pseudomonas Cipro 400mg Q12 started on 07/14 Yoo changed yesterday Monitor (12) Yoo catheter in place Current Visit: Yes Status: Acute Comment: needs to be changed on 07/26 (13) Oral candidiasis Current Visit: Yes Status: Acute Comment: diflucan 100mg daily x 5 days started 07/16 (14) Prophylactic measure Current Visit: Yes Status: Acute Comment: Pepcid 20 mg PO q12 SCD's Plavix Miralax Colace BID
[2015-07-21] MEDS: Fosphenytoin 100 MG in Sodium Chloride 0.9% 50 ML IV SCH ×3 (03:39→20:41)
[2015-07-21 08:31] LABS: BASO % 0.3 % (0.0-2.0); EOS # 0.5 K/uL (0.0-0.7); EOS % 4.8 % (0.0-4.0); HEMOGLOBIN 10.9 g/dL (12.0-18.0); LYMPH # 1.2 K/uL (1.0-4.3); LYMPH % 11.7 % (20.0-40.0); MEAN CELL VOLUME 92.9 fL (80.0-94.0); MEAN CORPUSCULAR HEMOGLOBIN 31.2 pg (27.0-31.0); MEAN CORPUSCULAR HGB CONC 33.6 g/dL (33.0-37.0); MEAN PLATELET VOLUME 7.9 fL (7.2-11.7); MONO # 0.8 K/uL (0.0-0.8); MONO % 8.6 % (0.0-10.0); NEUT # 7.4 K/uL (1.8-7.0); NEUT % 74.6 % (50.0-75.0); RBC 3.5 Mil/uL (4.40-5.90); RED CELL DISTRIBUTION WIDTH 14.2 % (11.5-14.5); WHITE BLOOD COUNT 9.9 K/uL (4.8-10.8)
[2015-07-21 09:03] LABS: ALBUMIN 3.2 g/dL (3.5-5.0)
[2015-07-21 09:06] LABS: ALB/GLOB RATIO 0.7 (1.0-2.1); AST/SGOT 83 U/L (17-59); BLOOD UREA NITROGEN 17 mg/dL (9-20); GFR NON-AFRICAN AMERICAN > 60
[2015-07-21 09:07] LABS: ALT/SGPT 155 U/L (21-72); CALCIUM 8.5 mg/dL (8.4-10.2)
[2015-07-21] MEDS: Enoxaparin 40 mg Syringe SC SCH (09:36)
[2015-07-21] MEDS: POLYETHYLENE GLYCOL 3350 17 GM/Dose PACKET PO SCH (09:37)
[2015-07-21 14:44] LABS: SQUAMOUS EPITHIAL < 1 /hpf (0-5); URINE AMORPHOUS SEDIMENT RARE /ul (<OCC); URINE BACTERIA OCC (<OCC); URINE BILIRUBIN NEGATIVE (NEGATIVE); URINE BLOOD NEGATIVE (NEGATIVE); URINE CLARITY Hazy (Clear); URINE COLOR Yellow (YELLOW); URINE GLUCOSE (UA) Normal (Normal); URINE HYALINE CAST 0-2/LPF /lpf (0-2); URINE LEUKOCYTE ESTERASE Negative Leu/uL (Negative); URINE MUCUS FEW; URINE PROTEIN TRACE mg/dL (NEGATIVE)
[2015-07-22] MEDS: Fosphenytoin 100 MG in Sodium Chloride 0.9% 50 ML IV SCH ×3 (04:12→20:20)
--- NOTE | 2015-07-22 05:39 | CP.PCM.PN ---
<Nely Pate - Last Filed: 07/22/15 05:51> Subjective - Subjective Subjective: PGY1 Medicine Note Patient seen and examined. No acute change in mental status. Patient unresponsive to verbal and physical stimuli. No acute distress. Review of Systems - Review of Systems Systems not reviewed;Unavailable: Acuity of Condition Objective - Vital Signs/Intake and Output Vital Signs (last 24 hours): Vital Signs - 24 hr 07/21/15 07/21/15 07/21/15 05:48 09:00 14:06 Temperature 98.2 F 97.2 F L Pulse Rate 70 70 82 Respiratory 20 20 Rate Blood Pressure 121/75 124/80 O2 Sat by Pulse 95 93 L Oximetry 07/21/15 22:00 Temperature 97.6 F Pulse Rate 73 Respiratory 18 Rate Blood Pressure 101/70 O2 Sat by Pulse 98 Oximetry Intake and Output (last 12 hours): Intake & Output 07/21/15 07/21/15 07/22/15 06:59 18:59 06:59 Intake Total 1000 Output Total 1150 400 300 Balance -1150 600 -300 Weight 103 lb 103 lb Intake: Intake, IV Amount 100 Left Forearm 100 Tube Feeding 600 Other 300 Output: Urine 1150 400 300 Urethral (Yoo) 1150 400 300 - Medications Medications: Current Medications Aspirin (Aspirin) 325 mg PO DAILY [facility] Last Admin: 07/21/15 09:37 Dose: 325 mg Clopidogrel Bisulfate (Plavix) 75 mg PO DAILY [facility] Last Admin: 07/21/15 09:37 Dose: 75 mg Docusate Sodium (Colace Liquid) 100 mg PEG BID [facility] Last Admin: 07/21/15 17:22 Dose: 100 mg Enoxaparin Sodium (Lovenox) 40 mg SC DAILY [facility] Last Admin: 07/21/15 09:36 Dose: 40 mg Famotidine (Pepcid) 20 mg PO BID [facility] Last Admin: 07/21/15 17:22 Dose: 20 mg Fosphenytoin Sodium 100 mg/ (Sodium Chloride) 52 mls @ 100 mls/hr IV Q8H [facility] Last Admin: 07/22/15 04:12 Dose: 100 mls/hr Cefepime HCl 1 gm/ Dextrose 50 mls @ 100 mls/hr IVPB Q12H [facility] Last Admin: 07/22/15 05:27 Dose: 100 mls/hr Lisinopril (Zestril) 5 mg PO DAILY [facility] Last Admin: 07/21/15 09:37 Dose: 5 mg Polyethylene Glycol (Miralax) 17 gm PO DAILY [facility] Last Admin: 07/21/15 09:37 Dose: 17 gm - Labs Labs (last 24 hours): Laboratory Results - last 24 hr 07/21/15 07/21/15 08:07 14:29 WBC 9.9 RBC 3.50 L Hgb 10.9 L Hct 32.5 L MCV 92.9 MCH 31.2 H MCHC 33.6 RDW 14.2 Plt Count 365 MPV 7.9 Neut % (Auto) 74.6 Lymph % (Auto) 11.7 L Simpson % (Auto) 8.6 Eos % (Auto) 4.8 H Baso % (Auto) 0.3 Neut # 7.4 H Lymph # 1.2 Simpson # 0.8 Eos # 0.5 Baso # 0.0 Sodium 140 Potassium 4.0 Chloride 101 Carbon Dioxide 29 Anion Gap 14 BUN 17 Creatinine 0.5 L Est GFR ( Amer) > 60 Est GFR (Non-Af Amer) > 60 Random Glucose 108 Calcium 8.5 Phosphorus 4.2 Magnesium 2.2 Total Bilirubin 0.3 AST 83 H ALT 155 H Alkaline Phosphatase 164 H Total Protein 7.4 Albumin 3.2 L Globulin 4.3 H Albumin/Globulin Ratio 0.7 L Urine Color Yellow Urine Clarity Hazy Urine pH 6.0 Ur Specific [place] 1.020 Urine Protein Trace Urine Glucose (UA) Normal Urine Ketones Negative Urine Blood Negative Urine Nitrate Negative Urine Bilirubin Negative Urine Urobilinogen 2.0 Ur Leukocyte Esterase Negative Urine WBC (Auto) 4 Urine RBC (Auto) 8 H Ur Squamous Epith Cells < 1 Amorphous Sediment Rare H Urine Bacteria Occ H Hyaline Casts 0-2/lpf Urine Mucus Few H - Constitutional Appears: No Acute Distress, Chronically Ill - Head Exam Head Exam: NORMAL INSPECTION, NORMOCEPHALIC - ENT Exam ENT Exam: Mucous Membranes Moist - Respiratory Exam Respiratory Exam: Clear to PA & Lateral, UNREMARKABLE. absent: Wheezes, Respiratory Distress - Cardiovascular Exam Cardiovascular Exam: REGULAR RHYTHM, +S1, +S2 - GI/Abdominal Exam GI & Abdominal Exam: Normal Bowel Sounds. absent: Distended - Neurological Exam Neurological exam: absent: Alert - Skin Skin Exam: Dry, Intact, Normal Color, Warm Assessment/Plan (1) Chest congestion Current Visit: Yes Status: Acute Comment: sputum culture final report: gram negative bacilli, Pseudomonas aeruginosa Non lactose track oiler IV Cefepime 1gm q12h started 07/21 (2) Thrombophlebitis of superficial veins of upper extremities Current Visit: Yes Status: Acute Comment: Venous doppler - thrombosis of right cephalic vein (superficial) Lovenox 40mg SC daily Warm compresses to area 15 minutes, 3x a day (3) Edema of upper extremity Current Visit: Yes Status: Acute Comment: Venous doppler - thrombosis of right cephalic vein (superficial) see above plan (4) Urinary tract infection Current Visit: Yes Status: Acute Comment: resolved UA on 07/21 showed 4 WBC, neg. LE urine culture from 07/18 no growth urine culture from 07/12 positive for pseudomonas most sensitive to ciprofloxacin Cipro 400mg Q12 started on 07/14 (5) Transaminitis Current Visit: Yes Status: Acute Comment: LFTs continue to be elevated Hepatitis panel negative continue to monitor LFTs (6) Respiratory failure Current Visit: Yes Status: Acute Comment: PRVC resp rate 12 S/P trach Dr. Salgado - Pulmonology - help very much appreciated (7) Anoxic encephalopathy Current Visit: Yes Status: Acute Comment: Spontaneous movements of mouth and limbs Unrepsonsive to painful and verbal stimuli Clinical status remains unchanged (8) CAD (coronary artery disease) Current Visit: Yes Status: Acute Comment: s/p cardiac cath with stenting Continue Lisinopril 5mg PO daily Continue Plavix 75mg PO daily Continue ASA 325mg PO daily (9) STEMI (ST elevation myocardial infarction) Current Visit: Yes Status: Acute Comment: Continue ASA 325mg PO daily Continue Lisinopril 5mg PO daily Continue Plavix 75mg pO daily (10) Seizures Current Visit: Yes Status: Acute Comment: Dr. Garcia on case-help appreciated Continue Fosphenytoin 100mg IVP Q8 No seizure activity likley secondary to anoxic brain injury Monitor for seizure activity (11) Leukocytosis Current Visit: Yes Status: Acute Comment: f/u CBCs resolved CXR - no active disease Monitor temperature Afebrile Urine culture positive for pseudomonas Cipro 400mg Q12 started on 07/14 IV Cefepime 1gm q12h started 07/21 Monitor (12) Yoo catheter in place Current Visit: Yes Status: Acute Comment: needs to be changed on 07/26 (13) Oral candidiasis Current Visit: Yes Status: Acute Comment: diflucan 100mg daily x 5 days started 07/16 (14) Prophylactic measure Current Visit: Yes Status: Acute Comment: Pepcid 20 mg PO q12 SCD's Plavix Miralax Colace BID <Rashel Rodrigues - Last Filed: 07/22/15 18:27> Objective - Vital Signs/Intake and Output Vital Signs (last 24 hours): Vital Signs - 24 hr 07/21/15 07/22/15 07/22/15 22:00 06:28 10:18 Temperature 97.6 F 97.2 F L Pulse Rate 73 664 H 71 Respiratory 18 20 Rate Blood Pressure 101/70 115/72 O2 Sat by Pulse 98 98 Oximetry 07/22/15 14:28 Temperature 97 F L Pulse Rate 74 Respiratory 17 Rate Blood Pressure 105/73 O2 Sat by Pulse 100 Oximetry Intake and Output (last 12 hours): Intake & Output 07/21/15 07/22/15 07/22/15 18:59 06:59 18:59 Intake Total 1000 1050 Output Total 400 900 500 Balance 600 -900 550 Weight 105 lb Intake: Intake, IV Amount 100 150 Left Forearm 100 150 Tube Feeding 600 600 Other 300 300 Output: Urine 400 900 500 Urethral (Yoo) 400 900 500 - Medications Medications: Current Medications Aspirin (Aspirin) 325 mg PO DAILY [facility] Last Admin: 07/22/15 09:40 Dose: 325 mg Clopidogrel Bisulfate (Plavix) 75 mg PO DAILY [facility] Last Admin: 07/22/15 09:40 Dose: 75 mg Docusate Sodium (Colace Liquid) 100 mg PEG BID [facility] Last Admin: 07/22/15 17:22 Dose: 100 mg Enoxaparin Sodium (Lovenox) 40 mg SC DAILY [facility] Last Admin: 07/22/15 09:39 Dose: 40 mg Famotidine (Pepcid) 20 mg PO BID [facility] Last Admin: 07/22/15 17:22 Dose: 20 mg Fosphenytoin Sodium 100 mg/ (Sodium Chloride) 52 mls @ 100 mls/hr IV Q8H [facility] Last Admin: 07/22/15 12:00 Dose: 100 mls/hr Cefepime HCl 1 gm/ Dextrose 50 mls @ 100 mls/hr IVPB Q12H [facility] Last Admin: 07/22/15 17:22 Dose: 100 mls/hr Lisinopril (Zestril) 5 mg PO DAILY [facility] Last Admin: 07/22/15 09:40 Dose: 5 mg Polyethylene Glycol (Miralax) 17 gm PO DAILY [facility] Last Admin: 07/22/15 09:39 Dose: 17 gm - Labs Labs (last 24 hours): Laboratory Results - last 24 hr 07/22/15 07:56 WBC 9.4 RBC 3.50 L Hgb 11.0 L Hct 32.1 L MCV 91.9 MCH 31.4 H MCHC 34.2 RDW 14.8 H Plt Count 344 MPV 7.9 Neut % (Auto) 70.9 Lymph % (Auto) 16.0 L Simpson % (Auto) 8.5 Eos % (Auto) 4.0 Baso % (Auto) 0.6 Neut # 6.7 Lymph # 1.5 Simpson # 0.8 Eos # 0.4 Baso # 0.1 Sodium 141 Potassium 4.0 Chloride 101 Carbon Dioxide 27 Anion Gap 16 BUN 18 Creatinine 0.6 L Est GFR ( Amer) > 60 Est GFR (Non-Af Amer) > 60 Random Glucose 108 Calcium 8.7 Phosphorus 3.5 Magnesium 2.1 Total Bilirubin 0.4 AST 98 H ALT 171 H Alkaline Phosphatase 162 H Total Protein 7.5 Albumin 3.2 L Globulin 4.4 H Albumin/Globulin Ratio 0.7 L Attending/Attestation - Attestation I have personally seen and examined this patient.: Yes I have fully participated in the care of the patient.: Yes I have reviewed all pertinent clinical information: Yes Notes (Text): 07/22/15 18:25 patient seen and exam during round with resident pt has no new events remains unresponsive cont vent mx as per Pulm ID consult for pseudomonas UTI and Pna cont Zosyn
[2015-07-22 08:24] LABS: BASO # 0.1 K/uL (0.0-0.2); BASO % 0.6 % (0.0-2.0); EOS # 0.4 K/uL (0.0-0.7); LYMPH # 1.5 K/uL (1.0-4.3); MEAN CELL VOLUME 91.9 fL (80.0-94.0); MEAN CORPUSCULAR HEMOGLOBIN 31.4 pg (27.0-31.0); MEAN CORPUSCULAR HGB CONC 34.2 g/dL (33.0-37.0); MEAN PLATELET VOLUME 7.9 fL (7.2-11.7); MONO # 0.8 K/uL (0.0-0.8); MONO % 8.5 % (0.0-10.0); NEUT # 6.7 K/uL (1.8-7.0); NEUT % 70.9 % (50.0-75.0); NRBC % 0.1 % (0.0-2.0); RBC 3.5 Mil/uL (4.40-5.90); RED CELL DISTRIBUTION WIDTH 14.8 % (11.5-14.5); WHITE BLOOD COUNT 9.4 K/uL (4.8-10.8)
[2015-07-22 09:11] LABS: ALBUMIN 3.2 g/dL (3.5-5.0)
[2015-07-22 09:14] LABS: ALB/GLOB RATIO 0.7 (1.0-2.1); AST/SGOT 98 U/L (17-59); BLOOD UREA NITROGEN 18 mg/dL (9-20); GFR NON-AFRICAN AMERICAN > 60
[2015-07-22 09:15] LABS: ALT/SGPT 171 U/L (21-72); CALCIUM 8.7 mg/dL (8.4-10.2)
[2015-07-22] MEDS: POLYETHYLENE GLYCOL 3350 17 GM/Dose PACKET PO SCH (09:39)
[2015-07-22] MEDS: Enoxaparin 40 mg Syringe SC SCH (09:39)
--- NOTE | 2015-07-22 18:46 | CP.PCM.CON ---
Past Patient History - Tetanus Immunizations Tetanus Immunization: Unknown - Past Medical History & Family History Past Medical History?: Yes - Past Social History Smoking Status: Never Smoked Alcohol: None Drugs: Denies - CARDIAC Hx Cardiac Disorders: Yes (unknown condition diagnosed in [place] 15 years ago) - MUSCULOSKELETAL/RHEUMATOLOGICAL Hx Falls: Yes - PSYCHIATRIC Hx Substance Use: No - ANESTHESIA Hx Anesthesia: No Hx Anesthesia Reactions: No Hx Malignant Hyperthermia: No Has any member of the family had a problem w/ anesthesia?: No Meds Home Medications: Home Medication List Medication Instructions Recorded Confirmed Type No Known Home Med [No Known Home 06/13/15 06/13/15 History Med] Allergies/Adverse Reactions: Allergies Allergy/AdvReac Type Severity Reaction Status Date / Time No Known Allergies Allergy Unverified 06/13/15 20:57 - Medications Medications: Current Medications Aspirin (Aspirin) 325 mg PO DAILY [facility] Last Admin: 07/22/15 09:40 Dose: 325 mg Clopidogrel Bisulfate (Plavix) 75 mg PO DAILY [facility] Last Admin: 07/22/15 09:40 Dose: 75 mg Docusate Sodium (Colace Liquid) 100 mg PEG BID [facility] Last Admin: 07/22/15 17:22 Dose: 100 mg Enoxaparin Sodium (Lovenox) 40 mg SC DAILY [facility] Last Admin: 07/22/15 09:39 Dose: 40 mg Famotidine (Pepcid) 20 mg PO BID [facility] Last Admin: 07/22/15 17:22 Dose: 20 mg Fosphenytoin Sodium 100 mg/ (Sodium Chloride) 52 mls @ 100 mls/hr IV Q8H [facility] Last Admin: 07/22/15 12:00 Dose: 100 mls/hr Cefepime HCl 1 gm/ Dextrose 50 mls @ 100 mls/hr IVPB Q12H [facility] Last Admin: 07/22/15 17:22 Dose: 100 mls/hr Lisinopril (Zestril) 5 mg PO DAILY [facility] Last Admin: 07/22/15 09:40 Dose: 5 mg Polyethylene Glycol (Miralax) 17 gm PO DAILY [facility] Last Admin: 07/22/15 09:39 Dose: 17 gm Results - Vital Signs Recent Vital Signs: Last Vital Signs Temp 97 F L 07/22/15 14:28 Pulse 74 07/22/15 14:28 Resp 17 07/22/15 14:28 BP 105/73 07/22/15 14:28 Pulse Ox 100 07/22/15 14:28 - Labs Result Diagrams: 07/22/15 07:56 07/22/15 07:56 Labs: Laboratory Results - last 24 hr 07/22/15 07:56 WBC 9.4 RBC 3.50 L Hgb 11.0 L Hct 32.1 L MCV 91.9 MCH 31.4 H MCHC 34.2 RDW 14.8 H Plt Count 344 MPV 7.9 Neut % (Auto) 70.9 Lymph % (Auto) 16.0 L [place] % (Auto) 8.5 Eos % (Auto) 4.0 Baso % (Auto) 0.6 Neut # 6.7 Lymph # 1.5 [place] # 0.8 Eos # 0.4 Baso # 0.1 Sodium 141 Potassium 4.0 Chloride 101 Carbon Dioxide 27 Anion Gap 16 BUN 18 Creatinine 0.6 L Est GFR ( Amer) > 60 Est GFR (Non-Af Amer) > 60 Random Glucose 108 Calcium 8.7 Phosphorus 3.5 Magnesium 2.1 Total Bilirubin 0.4 AST 98 H ALT 171 H Alkaline Phosphatase 162 H Total Protein 7.5 Albumin 3.2 L Globulin 4.4 H Albumin/Globulin Ratio 0.7 L
--- NOTE | 2015-07-22 22:00 | CON ---
DATE: 07/22/2015 INFECTIOUS DISEASE CONSULT REQUESTING PHYSICIAN: Dr. Rashel Rodrigues. HISTORY OF PRESENT ILLNESS: This patient is a 64-year-old male. He was admitted on 06/13, was found unresponsive on his driveway by the EMS, was brought in with code heart and he was in asystole and he remains now anoxic. He also was found to have a large laceration on his right head. Head CT showed an acute intracranial hemorrhage; hence, he remains unresponsive, anoxic on vent, and now it is almo st more than a month. I am asked to see him because he has sputum cultures, which are positive. Sin ce then, he has a trach and PEG. He was diagnosed with heart trouble in [place] 15 years ago. SOCIAL HISTORY: Negative for smoking or drinking. ALLERGIES: No allergies reported. MEDICATIONS: At the present time, he is on aspirin and cefepime was started 1 gram q. 12 hours. He is on Plavix, Colace, Lovenox, and Pepcid. He is on fosphenytoin, Dilantin IV, and he is on lisinopr il and MiraLax. So, he is on these via the PEG. ALLERGIES: He is not allergic to any medicine. REVIEW OF SYSTEMS: I am unable to obtain as he is unresponsive and probably anoxic. PHYSICAL EXAMINATION: VITAL SIGNS: I find temperature is 97, pulse is 74, blood pressure is 105/73, and respirations 17. HEENT: Shows he is unresponsive. He has a trach and is tied to the vent. LUNGS: Appear to be clear. No crackles or rales heard. No rhonchi. HEART: S1 and S2 is regular. ABDOMEN: Soft and nontender. No guarding, no rigidity present. PEG tube present. EXTREMITIES: Foot protect is present to keep them straight and to prevent any decubitus. LABORATORY DATA: White count is 9.4, hemoglobin is 11, hematocrit is 32.1, and platelet count is 344 . Sodium is 141, potassium 4, chloride 101, CO2 is 27, BUN is 16, and creatinine is 0.6. AST is 98, ALT is 171, and alkaline phosphatase is 162. So, LFTs are elevated, but this patient is on phenytoi n. The sputum culture showed pseudomonas on 07/12 and 07/18. There is urine culture, which is pending from the . Culture shows pseudomonas is Cipro sensitive, cefepime sensitive, but it is more Cip ro sensitive than cefepime. On , the Cipro was 1 and then cefepime became less than 1. So, he i s placed on cefepime. Urine culture has 50,000-100,000 GPCs present. We will repeat that. RECOMMENDATIONS: The patient is on cefepime at this time. We will continue the cefepime at this mitchel e 2 grams q. 12 hours and we will follow the urine culture once the ID and sensitivity is available. Chest x-ray was done on 07/18, showed no active disease. Well now, since he has already been started on cefepime, we will try to give him that and see if he can get off the vent and we will follow with you. He does have a UTI at this time and we will change the drugs once the sensitivity is available . Belem Armstrong MD cc: [id number] TT: 07/22/2015 20:34:40 an
[2015-07-23] MEDS: Fosphenytoin 100 MG in Sodium Chloride 0.9% 50 ML IV SCH ×3 (03:15→20:09)
[2015-07-23 07:43] LABS: BASO % 0.5 % (0.0-2.0); EOS # 0.5 K/uL (0.0-0.7); EOS % 5.3 % (0.0-4.0); HEMOGLOBIN 10.7 g/dL (12.0-18.0); LYMPH # 1.1 K/uL (1.0-4.3); LYMPH % 11.6 % (20.0-40.0); MEAN CELL VOLUME 92.9 fL (80.0-94.0); MEAN CORPUSCULAR HEMOGLOBIN 31.5 pg (27.0-31.0); MEAN CORPUSCULAR HGB CONC 33.9 g/dL (33.0-37.0); MONO # 0.7 K/uL (0.0-0.8); MONO % 7.2 % (0.0-10.0); NEUT % 75.4 % (50.0-75.0); RBC 3.41 Mil/uL (4.40-5.90); RED CELL DISTRIBUTION WIDTH 14.6 % (11.5-14.5); WHITE BLOOD COUNT 9.3 K/uL (4.8-10.8)
[2015-07-23 08:14] LABS: ALBUMIN 3.1 g/dL (3.5-5.0)
[2015-07-23 08:16] LABS: GFR NON-AFRICAN AMERICAN > 60
[2015-07-23 08:17] LABS: ALB/GLOB RATIO 0.7 (1.0-2.1); ALT/SGPT 177 U/L (21-72); AST/SGOT 92 U/L (17-59); BLOOD UREA NITROGEN 17 mg/dL (9-20); CALCIUM 8.6 mg/dL (8.4-10.2)
[2015-07-23] MEDS: POLYETHYLENE GLYCOL 3350 17 GM/Dose PACKET PO SCH (10:54)
[2015-07-23] MEDS: Enoxaparin 40 mg Syringe SC SCH (10:55)
--- NOTE | 2015-07-23 15:42 | CP.PCM.PN ---
<Judith Baires H - Last Filed: 07/23/15 15:37> Subjective - Subjective Subjective: PGY1 Medicine Note Patient seen and examined. No acute change in mental status. Patient unresponsive to verbal and physical stimuli. No acute distress. Awaiting placement. Review of Systems - Review of Systems Systems not reviewed;Unavailable: Altered Mental Status Objective - Vital Signs/Intake and Output Vital Signs (last 24 hours): Vital Signs - 24 hr 07/22/15 07/22/15 07/23/15 20:00 22:00 06:06 Temperature 97.4 F L 98.1 F Pulse Rate 74 86 67 Respiratory 18 20 Rate Blood Pressure 114/70 107/68 O2 Sat by Pulse 97 100 Oximetry 07/23/15 14:58 Temperature 97.0 F L Pulse Rate 70 Respiratory 19 Rate Blood Pressure O2 Sat by Pulse 99 Oximetry Intake and Output (last 12 hours): Intake & Output 07/22/15 07/23/15 07/23/15 18:59 06:59 18:59 Intake Total 1050 850 Output Total 500 1350 400 Balance 550 -500 -400 Weight 103 lb Intake: Intake, IV Amount 150 150 Left Forearm 150 150 Tube Feeding 600 600 Other 300 100 Output: Urine 500 1350 400 Urethral (Yoo) 500 1350 400 Other: # Bowel Movements 1 - Medications Medications: Current Medications Ampicillin (Ampicillin) 500 mg PEG TID [facility] Aspirin (Aspirin) 325 mg PO DAILY [facility] Last Admin: 07/23/15 10:55 Dose: 325 mg Clopidogrel Bisulfate (Plavix) 75 mg PO DAILY [facility] Last Admin: 07/23/15 10:56 Dose: 75 mg Docusate Sodium (Colace Liquid) 100 mg PEG BID [facility] Last Admin: 07/23/15 10:54 Dose: 100 mg Enoxaparin Sodium (Lovenox) 40 mg SC DAILY [facility] Last Admin: 07/23/15 10:55 Dose: 40 mg Famotidine (Pepcid) 20 mg PO BID [facility] Last Admin: 07/23/15 10:54 Dose: 20 mg Fosphenytoin Sodium 100 mg/ (Sodium Chloride) 52 mls @ 100 mls/hr IV Q8H [facility] Last Admin: 07/23/15 11:53 Dose: 100 mls/hr Cefepime HCl 1 gm/ Dextrose 50 mls @ 100 mls/hr IVPB Q12H [facility] Last Admin: 07/23/15 04:45 Dose: 100 mls/hr Lisinopril (Zestril) 5 mg PO DAILY [facility] Last Admin: 07/23/15 10:54 Dose: 5 mg Polyethylene Glycol (Miralax) 17 gm PO DAILY [facility] Last Admin: 07/23/15 10:54 Dose: 17 gm - Labs Labs (last 24 hours): Laboratory Results - last 24 hr 07/23/15 07:20 WBC 9.3 RBC 3.41 L Hgb 10.7 L Hct 31.7 L MCV 92.9 MCH 31.5 H MCHC 33.9 RDW 14.6 H Plt Count 331 MPV 8.0 Neut % (Auto) 75.4 H Lymph % (Auto) 11.6 L [place] % (Auto) 7.2 Eos % (Auto) 5.3 H Baso % (Auto) 0.5 Neut # 7.0 Lymph # 1.1 [place] # 0.7 Eos # 0.5 Baso # 0.0 Sodium 140 Potassium 3.9 Chloride 102 Carbon Dioxide 29 Anion Gap 13 BUN 17 Creatinine 0.6 L Est GFR ( Amer) > 60 Est GFR (Non-Af Amer) > 60 Random Glucose 129 H Calcium 8.6 Phosphorus 4.1 Magnesium 2.2 Total Bilirubin 0.4 AST 92 H ALT 177 H Alkaline Phosphatase 160 H Total Protein 7.3 Albumin 3.1 L Globulin 4.2 H Albumin/Globulin Ratio 0.7 L - Constitutional Appears: Chronically Ill - Head Exam Head Exam: NORMAL INSPECTION - ENT Exam ENT Exam: Mucous Membranes Moist - Respiratory Exam Respiratory Exam: Rales, NORMAL BREATHING PATTERN. absent: Accessory Muscle Use , Stridor Additional comments: trach in place PRVC resp rate 12 - Cardiovascular Exam Cardiovascular Exam: REGULAR RHYTHM, +S1, +S2 - GI/Abdominal Exam GI & Abdominal Exam: Normal Bowel Sounds, Soft Additional comments: peg in place no bleeding or drainage - Extremities Exam Extremities exam: normal inspection. absent: pedal edema - Neurological Exam Neurological exam: Altered Assessment/Plan (1) Chest congestion Current Visit: Yes Status: Acute Comment: sputum culture final report: Pseudomonas aeruginosa Non lactose pond tender IV Cefepime 1gm q12h started 07/21 (2) Thrombophlebitis of superficial veins of upper extremities Current Visit: Yes Status: Acute Comment: Venous doppler - thrombosis of right cephalic vein (superficial) Lovenox 40mg SC daily Warm compresses to area 15 minutes, 3x a day (3) Edema of upper extremity Current Visit: Yes Status: Acute Comment: Venous doppler - thrombosis of right cephalic vein (superficial) see above plan (4) Urinary tract infection Current Visit: Yes Status: Acute Comment: Urine culture 07/21 showed Beta hemolytic Strep Group B sensitive to ampicillin ampicillin 500mg PEG TID started 07/23 ID consulted - Dr. Armstrong - help very much appreciated UA on 07/21 showed 4 WBC, neg. LE urine culture from 07/18 no growth urine culture from 07/12 positive for pseudomonas most sensitive to ciprofloxacin Cipro 400mg Q12 started on 07/14 (5) Transaminitis Current Visit: Yes Status: Acute Comment: LFTs continue to be elevated Hepatitis panel negative continue to monitor LFTs (6) Respiratory failure Current Visit: Yes Status: Acute Comment: PRVC resp rate 12 S/P trach Dr. Salgado - Pulmonology - help very much appreciated (7) Anoxic encephalopathy Current Visit: Yes Status: Acute Comment: Spontaneous movements of mouth and limbs Unrepsonsive to painful and verbal stimuli Clinical status remains unchanged (8) CAD (coronary artery disease) Current Visit: Yes Status: Acute Comment: s/p cardiac cath with stenting Continue Lisinopril 5mg PO daily Continue Plavix 75mg PO daily Continue ASA 325mg PO daily (9) STEMI (ST elevation myocardial infarction) Current Visit: Yes Status: Acute Comment: Continue ASA 325mg PO daily Continue Lisinopril 5mg PO daily Continue Plavix 75mg pO daily (10) Seizures Current Visit: Yes Status: Acute Comment: Dr. Garcia on case-help appreciated Continue Fosphenytoin 100mg IVP Q8 No seizure activity janiceley secondary to anoxic brain injury Monitor for seizure activity (11) Leukocytosis Current Visit: Yes Status: Acute Comment: f/u CBCs resolved CXR - no active disease Monitor temperature Afebrile Urine culture positive for pseudomonas Cipro 400mg Q12 started on 07/14 IV Cefepime 1gm q12h started 07/21 Monitor (12) Yoo catheter in place Current Visit: Yes Status: Acute Comment: changed on 07/23 (13) Prophylactic measure Current Visit: Yes Status: Acute Comment: Pepcid 20 mg PO q12 SCD's Plavix Miralax Colace BID <Donnell Ying M - Last Filed: 07/23/15 22:12> Objective - Vital Signs/Intake and Output Vital Signs (last 24 hours): Vital Signs - 24 hr 07/23/15 07/23/15 06:06 14:58 Temperature 98.1 F 97.0 F L Pulse Rate 67 70 Respiratory 20 19 Rate Blood Pressure 107/68 O2 Sat by Pulse 100 99 Oximetry Intake and Output (last 12 hours): Intake & Output 07/23/15 07/23/15 07/24/15 06:59 18:59 06:59 Intake Total 850 Output Total 1350 400 Balance -500 -400 Weight 103 lb Intake: Intake, IV Amount 150 Left Forearm 150 Tube Feeding 600 Other 100 Output: Urine 1350 400 Urethral (Yoo) 1350 400 Other: # Bowel Movements 1 - Medications Medications: Current Medications Ampicillin (Ampicillin) 500 mg PEG TID [facility] Last Admin: 07/23/15 17:10 Dose: 500 mg Aspirin (Aspirin) 325 mg PO DAILY [facility] Last Admin: 07/23/15 10:55 Dose: 325 mg Clopidogrel Bisulfate (Plavix) 75 mg PO DAILY [facility] Last Admin: 07/23/15 10:56 Dose: 75 mg Docusate Sodium (Colace Liquid) 100 mg PEG BID [facility] Last Admin: 07/23/15 17:10 Dose: 100 mg Enoxaparin Sodium (Lovenox) 40 mg SC DAILY [facility] Last Admin: 07/23/15 10:55 Dose: 40 mg Famotidine (Pepcid) 20 mg PO BID [facility] Last Admin: 07/23/15 17:10 Dose: 20 mg Fosphenytoin Sodium 100 mg/ (Sodium Chloride) 52 mls @ 100 mls/hr IV Q8H [facility] Last Admin: 07/23/15 20:09 Dose: 100 mls/hr Cefepime HCl 1 gm/ Dextrose 50 mls @ 100 mls/hr IVPB Q12H [facility] Last Admin: 07/23/15 17:10 Dose: 100 mls/hr Lisinopril (Zestril) 5 mg PO DAILY [facility] Last Admin: 07/23/15 10:54 Dose: 5 mg Polyethylene Glycol (Miralax) 17 gm PO DAILY [facility] Last Admin: 07/23/15 10:54 Dose: 17 gm - Labs Labs (last 24 hours): Laboratory Results - last 24 hr 07/23/15 07:20 WBC 9.3 RBC 3.41 L Hgb 10.7 L Hct 31.7 L MCV 92.9 MCH 31.5 H MCHC 33.9 RDW 14.6 H Plt Count 331 MPV 8.0 Neut % (Auto) 75.4 H Lymph % (Auto) 11.6 L [place] % (Auto) 7.2 Eos % (Auto) 5.3 H Baso % (Auto) 0.5 Neut # 7.0 Lymph # 1.1 [place] # 0.7 Eos # 0.5 Baso # 0.0 Sodium 140 Potassium 3.9 Chloride 102 Carbon Dioxide 29 Anion Gap 13 BUN 17 Creatinine 0.6 L Est GFR ( Amer) > 60 Est GFR (Non-Af Amer) > 60 Random Glucose 129 H Calcium 8.6 Phosphorus 4.1 Magnesium 2.2 Total Bilirubin 0.4 AST 92 H ALT 177 H Alkaline Phosphatase 160 H Total Protein 7.3 Albumin 3.1 L Globulin 4.2 H Albumin/Globulin Ratio 0.7 L Attending/Attestation - Attestation I have personally seen and examined this patient.: Yes I have fully participated in the care of the patient.: Yes I have reviewed all pertinent clinical information: Yes Notes (Text): 07/23/15 22:11 No change in clinical condition Continue current management
[2015-07-24] MEDS: Fosphenytoin 100 MG in Sodium Chloride 0.9% 50 ML IV SCH ×3 (04:00→20:15)
[2015-07-24 08:06] LABS: BASO # 0.1 K/uL (0.0-0.2); BASO % 0.7 % (0.0-2.0); EOS # 0.5 K/uL (0.0-0.7); EOS % 5.9 % (0.0-4.0); HEMOGLOBIN 11.9 g/dL (12.0-18.0); LYMPH # 1.2 K/uL (1.0-4.3); LYMPH % 14.6 % (20.0-40.0); MEAN CELL VOLUME 93.4 fL (80.0-94.0); MEAN CORPUSCULAR HEMOGLOBIN 31.1 pg (27.0-31.0); MEAN CORPUSCULAR HGB CONC 33.3 g/dL (33.0-37.0); MEAN PLATELET VOLUME 8.4 fL (7.2-11.7); MONO # 0.8 K/uL (0.0-0.8); MONO % 9.1 % (0.0-10.0); NEUT # 5.9 K/uL (1.8-7.0); NEUT % 69.7 % (50.0-75.0); RBC 3.82 Mil/uL (4.40-5.90); RED CELL DISTRIBUTION WIDTH 14.5 % (11.5-14.5); WHITE BLOOD COUNT 8.5 K/uL (4.8-10.8)
[2015-07-24 08:47] LABS: ALBUMIN 3.4 g/dL (3.5-5.0)
[2015-07-24 08:50] LABS: ALB/GLOB RATIO 0.7 (1.0-2.1); ALT/SGPT 198 U/L (21-72); AST/SGOT 110 U/L (17-59); GFR NON-AFRICAN AMERICAN > 60
[2015-07-24 08:51] LABS: CALCIUM 8.7 mg/dL (8.4-10.2)
[2015-07-24 09:07] LABS: BLOOD UREA NITROGEN 17 mg/dL (9-20)
--- NOTE | 2015-07-24 09:27 | CP.PCM.PN ---
<Manuel Jara - Last Filed: 07/24/15 13:08> Subjective - Subjective Subjective: Patient seen and examined. Patient awake but non-responsive to verbal or tactile stimulation. No acute distress. No acute events. Review of Systems - Review of Systems Systems not reviewed;Unavailable: Acuity of Condition Objective - Vital Signs/Intake and Output Vital Signs (last 24 hours): Vital Signs - 24 hr 07/23/15 07/23/15 07/24/15 14:58 21:00 06:01 Temperature 97.0 F L 97.1 F L 97.6 F Pulse Rate 70 64 80 Respiratory 19 18 100 H Rate Blood Pressure 117/77 128/79 O2 Sat by Pulse 99 100 Oximetry 07/24/15 09:09 Temperature Pulse Rate 80 Respiratory Rate Blood Pressure O2 Sat by Pulse Oximetry Intake and Output (last 12 hours): Intake & Output 07/23/15 07/24/15 07/24/15 18:59 06:59 18:59 Output Total 400 900 Balance -400 -900 Output: Urine 400 900 Urethral (Yoo) 400 900 - Medications Medications: Current Medications Ampicillin (Ampicillin) 500 mg PEG TID [facility] Last Admin: 07/23/15 17:10 Dose: 500 mg Aspirin (Aspirin) 325 mg PO DAILY [facility] Last Admin: 07/23/15 10:55 Dose: 325 mg Clopidogrel Bisulfate (Plavix) 75 mg PO DAILY [facility] Last Admin: 07/23/15 10:56 Dose: 75 mg Docusate Sodium (Colace Liquid) 100 mg PEG BID [facility] Last Admin: 07/23/15 17:10 Dose: 100 mg Enoxaparin Sodium (Lovenox) 40 mg SC DAILY [facility] Last Admin: 07/23/15 10:55 Dose: 40 mg Famotidine (Pepcid) 20 mg PO BID [facility] Last Admin: 07/23/15 17:10 Dose: 20 mg Fosphenytoin Sodium 100 mg/ (Sodium Chloride) 52 mls @ 100 mls/hr IV Q8H [facility] Last Admin: 07/24/15 04:00 Dose: 100 mls/hr Cefepime HCl 1 gm/ Dextrose 50 mls @ 100 mls/hr IVPB Q12H [facility] Last Admin: 07/24/15 05:00 Dose: 100 mls/hr Lisinopril (Zestril) 5 mg PO DAILY [facility] Last Admin: 07/23/15 10:54 Dose: 5 mg Polyethylene Glycol (Miralax) 17 gm PO DAILY [facility] Last Admin: 07/23/15 10:54 Dose: 17 gm - Labs Labs (last 24 hours): Laboratory Results - last 24 hr 07/24/15 07:37 WBC 8.5 RBC 3.82 L Hgb 11.9 L Hct 35.6 MCV 93.4 MCH 31.1 H MCHC 33.3 RDW 14.5 Plt Count 340 MPV 8.4 Neut % (Auto) 69.7 Lymph % (Auto) 14.6 L Morrow % (Auto) 9.1 Eos % (Auto) 5.9 H Baso % (Auto) 0.7 Neut # 5.9 Lymph # 1.2 Morrow # 0.8 Eos # 0.5 Baso # 0.1 Sodium 141 Potassium 4.2 Chloride 101 Carbon Dioxide 30 Anion Gap 15 BUN 17 Creatinine 0.6 L Est GFR ( Amer) > 60 Est GFR (Non-Af Amer) > 60 Random Glucose 118 H Calcium 8.7 Phosphorus 3.8 Magnesium 2.2 Total Bilirubin 0.4 AST 110 H ALT 198 H Alkaline Phosphatase 174 H Total Protein 8.0 Albumin 3.4 L Globulin 4.6 H Albumin/Globulin Ratio 0.7 L - Constitutional Appears: Chronically Ill - Head Exam Head Exam: NORMAL INSPECTION - Eye Exam Eye Exam: Normal appearance - Neck Exam Additional comments: Trach - Respiratory Exam Respiratory Exam: absent: Rales, Rhonchi, Wheezes - Cardiovascular Exam Cardiovascular Exam: +S1, +S2. absent: Diastolic murmur, Gallop, Rubs, Systolic Murmur - GI/Abdominal Exam GI & Abdominal Exam: Diminished Bowel Sounds, Soft. absent: Distended, Firm, Rigid - Extremities Exam Extremities exam: absent: pedal edema - Skin Skin Exam: Normal Color Assessment/Plan (1) Chest congestion Current Visit: Yes Status: Acute Comment: sputum culture final report: Pseudomonas aeruginosa Non lactose assigner IV Cefepime 1gm q12h started 07/21 (2) Thrombophlebitis of superficial veins of upper extremities Current Visit: Yes Status: Acute Comment: Venous doppler - thrombosis of right cephalic vein (superficial) Lovenox 40mg SC daily Warm compresses to area 15 minutes, 3x a day (3) Edema of upper extremity Current Visit: Yes Status: Acute Comment: Venous doppler - thrombosis of right cephalic vein (superficial) see above plan (4) Urinary tract infection Current Visit: Yes Status: Acute Comment: Urine culture 07/21 showed Beta hemolytic Strep Group B sensitive to ampicillin ampicillin 500mg PEG TID started 07/23 ID consulted - Dr. Armstrong - help very much appreciated (5) Transaminitis Current Visit: Yes Status: Acute Comment: LFTs continue to be elevated Hepatitis panel negative continue to monitor LFTs (6) Respiratory failure Current Visit: Yes Status: Acute Comment: PRVC resp rate 12 S/P trach Dr. Salgado - Pulmonology - help very much appreciated (7) Anoxic encephalopathy Current Visit: Yes Status: Acute Comment: Spontaneous movements of mouth and limbs Unrepsonsive to painful and verbal stimuli Clinical status remains unchanged (8) STEMI (ST elevation myocardial infarction) Current Visit: Yes Status: Acute Comment: Continue ASA 325mg PO daily Continue Lisinopril 5mg PO daily Continue Plavix 75mg pO daily Dr. Figueroa on case. Help appreciated. (9) Seizures Current Visit: Yes Status: Acute Comment: Dr. Garcia on case-help appreciated Continue Fosphenytoin 100mg IVP Q8 No seizure activity likley secondary to anoxic brain injury Monitor for seizure activity (10) Leukocytosis Current Visit: Yes Status: Acute Comment: resolved CXR - no active disease Monitor temperature Afebrile IV Cefepime 1gm q12h started 07/21 Monitor (11) Prophylactic measure Current Visit: Yes Status: Acute Comment: Pepcid 20 mg PO q12 SCD's Plavix Miralax Colace BID <Donnell Ying M - Last Filed: 07/24/15 16:37> Objective - Vital Signs/Intake and Output Vital Signs (last 24 hours): Vital Signs - 24 hr 07/23/15 07/24/15 07/24/15 21:00 06:01 09:09 Temperature 97.1 F L 97.6 F Pulse Rate 64 80 80 Respiratory 18 100 H Rate Blood Pressure 117/77 128/79 O2 Sat by Pulse 100 Oximetry 07/24/15 15:16 Temperature 98.6 F Pulse Rate 93 H Respiratory 20 Rate Blood Pressure 108/75 O2 Sat by Pulse 100 Oximetry Intake and Output (last 12 hours): Intake & Output 07/23/15 07/24/15 07/24/15 18:59 06:59 18:59 Output Total 400 900 500 Balance -400 -900 -500 Output: Urine 400 900 500 Urethral (Yoo) 400 900 500 - Medications Medications: Current Medications Ampicillin (Ampicillin) 500 mg PEG TID [facility] Last Admin: 07/24/15 13:00 Dose: 500 mg Aspirin (Aspirin) 325 mg PO DAILY [facility] Last Admin: 07/24/15 10:01 Dose: 325 mg Clopidogrel Bisulfate (Plavix) 75 mg PO DAILY [facility] Last Admin: 07/24/15 10:01 Dose: 75 mg Docusate Sodium (Colace Liquid) 100 mg PEG BID [facility] Last Admin: 07/24/15 10:00 Dose: 100 mg Enoxaparin Sodium (Lovenox) 40 mg SC DAILY [facility] Last Admin: 07/24/15 10:01 Dose: 40 mg Famotidine (Pepcid) 20 mg PO BID [facility] Last Admin: 07/24/15 10:01 Dose: 20 mg Fosphenytoin Sodium 100 mg/ (Sodium Chloride) 52 mls @ 100 mls/hr IV Q8H [facility] Last Admin: 07/24/15 12:46 Dose: 100 mls/hr Cefepime HCl 1 gm/ Dextrose 50 mls @ 100 mls/hr IVPB Q12H [facility] Last Admin: 07/24/15 05:00 Dose: 100 mls/hr Lisinopril (Zestril) 5 mg PO DAILY [facility] Last Admin: 07/24/15 10:01 Dose: 5 mg Polyethylene Glycol (Miralax) 17 gm PO DAILY [facility] Last Admin: 07/24/15 10:01 Dose: 17 gm - Labs Labs (last 24 hours): Laboratory Results - last 24 hr 07/24/15 07:37 WBC 8.5 RBC 3.82 L Hgb 11.9 L Hct 35.6 MCV 93.4 MCH 31.1 H MCHC 33.3 RDW 14.5 Plt Count 340 MPV 8.4 Neut % (Auto) 69.7 Lymph % (Auto) 14.6 L Morrow % (Auto) 9.1 Eos % (Auto) 5.9 H Baso % (Auto) 0.7 Neut # 5.9 Lymph # 1.2 Morrow # 0.8 Eos # 0.5 Baso # 0.1 Sodium 141 Potassium 4.2 Chloride 101 Carbon Dioxide 30 Anion Gap 15 BUN 17 Creatinine 0.6 L Est GFR ( Amer) > 60 Est GFR (Non-Af Amer) > 60 Random Glucose 118 H Calcium 8.7 Phosphorus 3.8 Magnesium 2.2 Total Bilirubin 0.4 AST 110 H ALT 198 H Alkaline Phosphatase 174 H Total Protein 8.0 Albumin 3.4 L Globulin 4.6 H Albumin/Globulin Ratio 0.7 L Attending/Attestation - Attestation I have personally seen and examined this patient.: Yes I have fully participated in the care of the patient.: Yes I have reviewed all pertinent clinical information: Yes Notes (Text): 07/24/15 16:36 No change in clinical condition Continue current management
[2015-07-24] MEDS: Enoxaparin 40 mg Syringe SC SCH (10:01)
[2015-07-24] MEDS: POLYETHYLENE GLYCOL 3350 17 GM/Dose PACKET PO SCH (10:01)
--- NOTE | 2015-07-24 21:57 | CP.PCM.PN ---
Subjective - Subjective Subjective: dictated Objective - Vital Signs/Intake and Output Vital Signs (last 24 hours): Vital Signs - 24 hr 07/24/15 07/24/15 07/24/15 06:01 09:09 15:16 Temperature 97.6 F 98.6 F Pulse Rate 80 80 93 H Respiratory 100 H 20 Rate Blood Pressure 128/79 108/75 O2 Sat by Pulse 100 Oximetry 07/24/15 21:39 Temperature 98.5 F Pulse Rate 80 Respiratory 20 Rate Blood Pressure 109/72 O2 Sat by Pulse 100 Oximetry Intake and Output (last 12 hours): Intake & Output 07/24/15 07/24/15 07/25/15 06:59 18:59 06:59 Intake Total 1000 Output Total 900 500 Balance -900 500 Intake: Intake, IV Amount 100 Left Forearm 100 Tube Feeding 600 Other 300 Output: Urine 900 500 Urethral (Yoo) 900 500 Other: # Bowel Movements 1 - Medications Medications: Current Medications Aspirin (Aspirin) 325 mg PO DAILY [facility] Last Admin: 07/24/15 10:01 Dose: 325 mg Clopidogrel Bisulfate (Plavix) 75 mg PO DAILY [facility] Last Admin: 07/24/15 10:01 Dose: 75 mg Docusate Sodium (Colace Liquid) 100 mg PEG BID [facility] Last Admin: 07/24/15 17:17 Dose: 100 mg Enoxaparin Sodium (Lovenox) 40 mg SC DAILY [facility] Last Admin: 07/24/15 10:01 Dose: 40 mg Famotidine (Pepcid) 20 mg PO BID [facility] Last Admin: 07/24/15 10:01 Dose: 20 mg Fosphenytoin Sodium 100 mg/ (Sodium Chloride) 52 mls @ 100 mls/hr IV Q8H [facility] Last Admin: 07/24/15 20:15 Dose: 100 mls/hr Cefepime HCl 1 gm/ Dextrose 50 mls @ 100 mls/hr IVPB Q12H [facility] Last Admin: 07/24/15 17:17 Dose: 100 mls/hr Lisinopril (Zestril) 5 mg PO DAILY [facility] Last Admin: 07/24/15 10:01 Dose: 5 mg Polyethylene Glycol (Miralax) 17 gm PO DAILY [facility] Last Admin: 07/24/15 10:01 Dose: 17 gm - Labs Labs (last 24 hours): Laboratory Results - last 24 hr 07/24/15 07:37 WBC 8.5 RBC 3.82 L Hgb 11.9 L Hct 35.6 MCV 93.4 MCH 31.1 H MCHC 33.3 RDW 14.5 Plt Count 340 MPV 8.4 Neut % (Auto) 69.7 Lymph % (Auto) 14.6 L [place] % (Auto) 9.1 Eos % (Auto) 5.9 H Baso % (Auto) 0.7 Neut # 5.9 Lymph # 1.2 [place] # 0.8 Eos # 0.5 Baso # 0.1 Sodium 141 Potassium 4.2 Chloride 101 Carbon Dioxide 30 Anion Gap 15 BUN 17 Creatinine 0.6 L Est GFR ( Amer) > 60 Est GFR (Non-Af Amer) > 60 Random Glucose 118 H Calcium 8.7 Phosphorus 3.8 Magnesium 2.2 Total Bilirubin 0.4 AST 110 H ALT 198 H Alkaline Phosphatase 174 H Total Protein 8.0 Albumin 3.4 L Globulin 4.6 H Albumin/Globulin Ratio 0.7 L
[2015-07-25] MEDS: Fosphenytoin 100 MG in Sodium Chloride 0.9% 50 ML IV SCH ×3 (04:00→20:00)
--- NOTE | 2015-07-25 08:18 | CON ---
DATE: 07/24/2015 The patient remains on the vent. He is unresponsive and a trach site appears unremarkable. PHYSICAL EXAMINATION: NECK: Supple. LUNGS: Clear to auscultation. No crackles or rales present. HEART: S1, S2 regular. ABDOMEN: Soft, nontender. EXTREMITIES: No edema, clubbing, cyanosis noted. He has a supportive boot to protect his feet. LABORATORY DATA: Noted. Labs show that the white count is 8.5, hemoglobin 11.9, hematocrit 35.9, pl atelet count is 340. His urine culture had showed a strep, group B and a pseudomonas so he is o n Maxipime and ampicillin but Maxipime will cover for B beta strep hence will discontinue the ampicil tomer and will continue cefepime and will follow. IMPRESSION: The patient is in with it anoxic encephalopathy and respiratory failure, status post tra ch and PEG and plan is to continue antibiotics for pneumonia as well as urinary tract infection. Belem Armstrong MD cc: [id number] TT: 07/25/2015 08:18:38
[2015-07-25] MEDS: POLYETHYLENE GLYCOL 3350 17 GM/Dose PACKET PO SCH (09:37)
[2015-07-25] MEDS: Enoxaparin 40 mg Syringe SC SCH (09:37)
--- NOTE | 2015-07-25 15:13 | CP.PCM.PN ---
<Yesenia Mayer - Last Filed: 07/25/15 15:46> Subjective - Subjective Subjective: Patient seen and examined at bedside. Patient awake but non-responsive to verbal or tactile stimulation. He is in no distress. As per nursing, no acute overnight events. Review of Systems - Review of Systems Systems not reviewed;Unavailable: Intubated Review of Systems: patient unresponsive and trached. unable to obtain ROS Objective - Vital Signs/Intake and Output Vital Signs (last 24 hours): Vital Signs - 24 hr 07/24/15 07/24/15 07/25/15 15:16 21:39 05:22 Temperature 98.6 F 98.5 F 98.7 F Pulse Rate 93 H 80 82 Respiratory 20 20 20 Rate Blood Pressure 108/75 109/72 102/69 O2 Sat by Pulse 100 100 99 Oximetry 07/25/15 07/25/15 08:48 14:20 Temperature 98.4 F Pulse Rate 82 78 Respiratory 20 Rate Blood Pressure 94/66 L O2 Sat by Pulse 100 Oximetry Intake and Output (last 12 hours): Intake & Output 07/24/15 07/25/15 07/25/15 18:59 06:59 18:59 Intake Total 1000 Output Total 500 900 500 Balance 500 -900 -500 Weight 102 lb 0.5 oz Intake: Intake, IV Amount 100 Left Forearm 100 Tube Feeding 600 Other 300 Output: Urine 500 900 500 Urethral (Baker) 500 900 500 Other: # Bowel Movements 1 1 - Medications Medications: Current Medications Aspirin (Aspirin) 325 mg PO DAILY [facility] Last Admin: 07/25/15 09:37 Dose: 325 mg Clopidogrel Bisulfate (Plavix) 75 mg PO DAILY [facility] Last Admin: 07/25/15 09:38 Dose: 75 mg Docusate Sodium (Colace Liquid) 100 mg PEG BID [facility] Last Admin: 07/25/15 09:37 Dose: 100 mg Enoxaparin Sodium (Lovenox) 40 mg SC DAILY [facility] Last Admin: 07/25/15 09:37 Dose: 40 mg Famotidine (Pepcid) 20 mg PO BID [facility] Last Admin: 07/25/15 09:37 Dose: 20 mg Fosphenytoin Sodium 100 mg/ (Sodium Chloride) 52 mls @ 100 mls/hr IV Q8H [facility] Last Admin: 07/25/15 04:00 Dose: 100 mls/hr Cefepime HCl 1 gm/ Dextrose 50 mls @ 100 mls/hr IVPB Q12H [facility] Last Admin: 07/25/15 05:00 Dose: 100 mls/hr Lisinopril (Zestril) 5 mg PO DAILY [facility] Last Admin: 07/25/15 09:38 Dose: 5 mg Polyethylene Glycol (Miralax) 17 gm PO DAILY [facility] Last Admin: 07/25/15 09:37 Dose: 17 gm - Constitutional Appears: No Acute Distress, Chronically Ill - Head Exam Head Exam: NORMAL INSPECTION - Eye Exam Eye Exam: Normal appearance - Neck Exam Neck exam: absent: Lymphadenopathy Additional comments: Trach - Respiratory Exam Respiratory Exam: absent: Rales, Rhonchi, Wheezes Additional comments: patient with trach - Cardiovascular Exam Cardiovascular Exam: +S1, +S2. absent: Diastolic murmur, Rubs, Systolic Murmur - GI/Abdominal Exam GI & Abdominal Exam: Diminished Bowel Sounds, Soft. absent: Distended, Firm, Rigid Additional comments: PEG tube - Extremities Exam Extremities exam: pedal pulses present. absent: pedal edema - Neurological Exam Neurological exam: absent: Alert, Oriented x3 - Skin Skin Exam: Normal Color, Warm Assessment/Plan (1) Chest congestion Current Visit: Yes Status: Acute Comment: sputum culture final report: Pseudomonas aeruginosa Non lactose supervisor treating and pumping IV Cefepime 1gm q12h started 07/21 (2) Thrombophlebitis of superficial veins of upper extremities Current Visit: Yes Status: Acute Comment: Venous doppler - thrombosis of right cephalic vein (superficial) Lovenox 40mg SC daily Warm compresses to area 15 minutes, 3x a day (3) Edema of upper extremity Current Visit: Yes Status: Acute Comment: Venous doppler - thrombosis of right cephalic vein (superficial) see above plan (4) Anoxic encephalopathy Current Visit: Yes Status: Acute Comment: Spontaneous movements of mouth and limbs Unrepsonsive to painful and verbal stimuli Clinical status remains unchanged (5) Respiratory failure Current Visit: Yes Status: Acute Comment: PRVC resp rate 12 S/P trach Dr. Salgado - Pulmonology - help very much appreciated (6) UTI (lower urinary tract infection) Current Visit: Yes Status: Acute Comment: baker catheter associated UTI Urine culture positive for Pseudomonas Continue cipro 400mg IVPB q12hrs Baker replaced 07/13/15 (7) Transaminitis Current Visit: Yes Status: Acute Comment: LFTs continue to be elevated Hepatitis panel negative continue to monitor LFTs (8) Cardiac arrest Current Visit: Yes Status: Acute Comment: s/p V-Tach arrest Continue Plavix 75mg PO daily Continue ASA 325mg PO daily Continue Lisinopril 5mg PO daily (9) STEMI (ST elevation myocardial infarction) Current Visit: Yes Status: Acute Comment: Continue ASA 325mg PO daily Continue Lisinopril 5mg PO daily Continue Plavix 75mg pO daily Dr. Figueroa on case. Help appreciated. (10) Seizures Current Visit: Yes Status: Acute Comment: Dr. Garcia on case-help appreciated Continue Fosphenytoin 100mg IVP Q8 No seizure activity likley secondary to anoxic brain injury Monitor for seizure activity (11) Prophylactic measure Current Visit: Yes Status: Acute Comment: Pepcid 20 mg PO q12 SCD's Plavix Miralax Colace BID <Donnell Ying M - Last Filed: 07/26/15 09:21> Objective - Vital Signs/Intake and Output Vital Signs (last 24 hours): Vital Signs - 24 hr 07/25/15 07/25/15 07/26/15 14:20 21:40 06:02 Temperature 98.4 F 98.9 F 98.1 F Pulse Rate 78 83 90 Respiratory 20 20 16 Rate Blood Pressure 94/66 L 136/83 96/66 L O2 Sat by Pulse 100 99 100 Oximetry Intake and Output (last 12 hours): Intake & Output 07/25/15 07/26/15 07/26/15 18:59 06:59 18:59 Intake Total 1000 850 Output Total 500 700 Balance 500 150 Weight 103 lb Intake: Intake, IV Amount 100 150 Left Forearm 100 Right Hand 150 Tube Feeding 600 600 Other 300 100 Output: Urine 500 700 Urethral (Baker) 500 700 Other: # Bowel Movements 1 1 - Medications Medications: Current Medications Aspirin (Aspirin) 325 mg PO DAILY [facility] Last Admin: 07/25/15 09:37 Dose: 325 mg Clopidogrel Bisulfate (Plavix) 75 mg PO DAILY [facility] Last Admin: 07/25/15 09:38 Dose: 75 mg Docusate Sodium (Colace Liquid) 100 mg PEG BID [facility] Last Admin: 07/25/15 17:11 Dose: 100 mg Enoxaparin Sodium (Lovenox) 40 mg SC DAILY [facility] Last Admin: 07/25/15 09:37 Dose: 40 mg Famotidine (Pepcid) 20 mg PO BID [facility] Last Admin: 07/25/15 17:11 Dose: 20 mg Fosphenytoin Sodium 100 mg/ (Sodium Chloride) 52 mls @ 100 mls/hr IV Q8H REPLACED BY [facility] Last Admin: 07/26/15 03:56 Dose: 100 mls/hr Cefepime HCl 1 gm/ Dextrose 50 mls @ 100 mls/hr IVPB Q12H [facility]PLACED [facility] Last Admin: 07/26/15 05:21 Dose: 100 mls/hr Lisinopril (Zestril) 5 mg PO DAILY [facility] Last Admin: 07/25/15 09:38 Dose: 5 mg Polyethylene Glycol (Miralax) 17 gm PO DAILY [facility] Last Admin: 07/25/15 09:37 Dose: 17 gm Attending/Attestation - Attestation I have personally seen and examined this patient.: Yes I have fully participated in the care of the patient.: Yes I have reviewed all pertinent clinical information: Yes Notes (Text): 07/26/15 09:21 No change in clinical condition Continue current management
[2015-07-26] MEDS: Fosphenytoin 100 MG in Sodium Chloride 0.9% 50 ML IV SCH ×3 (03:56→19:57)
--- NOTE | 2015-07-26 07:44 | CP.PCM.PN ---
<Yesenia Mayer - Last Filed: 07/26/15 15:36> Subjective - Subjective Subjective: Pt seen and examined this morning. He is not responsive to verbal stimuli but makes some movements when I auscultate. No acute events overnight per nurse. As per dietary recommendations, feeding increased to 60 ml/hr. * Ventilator Settings O2 conc. 40 PEEP 5 RR 12 TV 450 P.peak 12 P.mean 7 MVe 5.7 Review of Systems - Review of Systems Systems not reviewed;Unavailable: Acuity of Condition Review of Systems: Patient trached and unresponsive. unable to obtain ROS. Objective - Vital Signs/Intake and Output Vital Signs (last 24 hours): Vital Signs - 24 hr 07/25/15 07/25/15 07/25/15 08:48 14:20 21:40 Temperature 98.4 F 98.9 F Pulse Rate 82 78 83 Respiratory 20 20 Rate Blood Pressure 94/66 L 136/83 O2 Sat by Pulse 100 99 Oximetry 07/26/15 06:02 Temperature 98.1 F Pulse Rate 90 Respiratory 16 Rate Blood Pressure 96/66 L O2 Sat by Pulse 100 Oximetry Intake and Output (last 12 hours): Intake & Output 07/25/15 07/26/15 07/26/15 18:59 06:59 18:59 Intake Total 1000 850 Output Total 500 700 Balance 500 150 Weight 103 lb Intake: Intake, IV Amount 100 150 Left Forearm 100 Right Hand 150 Tube Feeding 600 600 Other 300 100 Output: Urine 500 700 Urethral (Yoo) 500 700 Other: # Bowel Movements 1 1 - Medications Medications: Current Medications Aspirin (Aspirin) 325 mg PO DAILY [facility] Last Admin: 07/25/15 09:37 Dose: 325 mg Clopidogrel Bisulfate (Plavix) 75 mg PO DAILY [facility] Last Admin: 07/25/15 09:38 Dose: 75 mg Docusate Sodium (Colace Liquid) 100 mg PEG BID [facility] Last Admin: 07/25/15 17:11 Dose: 100 mg Enoxaparin Sodium (Lovenox) 40 mg SC DAILY [facility] Last Admin: 07/25/15 09:37 Dose: 40 mg Famotidine (Pepcid) 20 mg PO BID [facility] Last Admin: 07/25/15 17:11 Dose: 20 mg Fosphenytoin Sodium 100 mg/ (Sodium Chloride) 52 mls @ 100 mls/hr IV Q8H [facility] Last Admin: 07/26/15 03:56 Dose: 100 mls/hr Cefepime HCl 1 gm/ Dextrose 50 mls @ 100 mls/hr IVPB Q12H [facility] Last Admin: 07/26/15 05:21 Dose: 100 mls/hr Lisinopril (Zestril) 5 mg PO DAILY [facility] Last Admin: 07/25/15 09:38 Dose: 5 mg Polyethylene Glycol (Miralax) 17 gm PO DAILY [facility] Last Admin: 07/25/15 09:37 Dose: 17 gm - Constitutional Appears: Chronically Ill - Head Exam Head Exam: ATRAUMATIC, NORMAL INSPECTION, NORMOCEPHALIC - Neck Exam Neck exam: absent: Lymphadenopathy - Respiratory Exam Respiratory Exam: Wheezes. absent: Rales, Rhonchi - Cardiovascular Exam Cardiovascular Exam: REGULAR RHYTHM, +S1, +S2 - GI/Abdominal Exam GI & Abdominal Exam: Normal Bowel Sounds Additional comments: PEG tube in place - Extremities Exam Extremities exam: normal inspection, pedal pulses present. absent: pedal edema - Neurological Exam Neurological exam: absent: Alert, Oriented x3 - Skin Skin Exam: Dry, Intact, Normal Color, Warm Assessment/Plan (1) Chest congestion Current Visit: Yes Status: Acute Comment: sputum culture (07/18): Pseudomonas aeruginosa IV Cefepime 1gm q12h started 07/21 (2) Thrombophlebitis of superficial veins of upper extremities Current Visit: Yes Status: Acute Comment: Venous doppler - thrombosis of right cephalic vein (superficial) Lovenox 40mg SC daily Warm compresses to area 15 minutes, 3x a day (3) Edema of upper extremity Current Visit: Yes Status: Acute Comment: Venous doppler - thrombosis of right cephalic vein (superficial) see above plan (4) Anoxic encephalopathy Current Visit: Yes Status: Acute Comment: Spontaneous movements of mouth and limbs Unresponsive to painful and verbal stimuli Clinical status remains unchanged (5) Respiratory failure Current Visit: Yes Status: Acute Comment: S/P trach CO=776 PEEP=5 RR=12 O2=40% Dr. Salgado - Pulmonology - help very much appreciated (6) UTI (lower urinary tract infection) Current Visit: Yes Status: Acute Comment: Urine CX: Coag neg staph (positive for Pseudomonas in past) IV Cefepime 1gm q12h started 07/21 (7) Transaminitis Current Visit: Yes Status: Acute Comment: LFTs continue to be elevated Hepatitis panel negative continue to monitor LFTs (8) Cardiac arrest Current Visit: Yes Status: Acute Comment: s/p V-Tach arrest Continue Plavix 75mg PO daily Continue ASA 325mg PO daily Continue Lisinopril 5mg PO daily (9) STEMI (ST elevation myocardial infarction) Current Visit: Yes Status: Acute Comment: Continue ASA 325mg PO daily Continue Lisinopril 5mg PO daily Continue Plavix 75mg pO daily Dr. Figueroa on case. Help appreciated. (10) Seizures Current Visit: Yes Status: Acute Comment: Dr. Garcia on case-help appreciated Continue Fosphenytoin 100mg IVP Q8 No seizure activity likley secondary to anoxic brain injury Monitor for seizure activity (11) Prophylactic measure Current Visit: Yes Status: Acute Comment: Pepcid 20 mg PO q12 SCD's Plavix Miralax Colace BID <Donnell Ying M - Last Filed: 07/26/15 16:13> Objective - Vital Signs/Intake and Output Vital Signs (last 24 hours): Vital Signs - 24 hr 07/25/15 07/26/15 07/26/15 21:40 06:02 14:00 Temperature 98.9 F 98.1 F 97.8 F Pulse Rate 83 90 78 Respiratory 20 16 20 Rate Blood Pressure 136/83 96/66 L 93/74 L O2 Sat by Pulse 99 100 100 Oximetry Intake and Output (last 12 hours): Intake & Output 07/25/15 07/26/15 07/26/15 18:59 06:59 18:59 Intake Total 1000 850 Output Total 500 700 350 Balance 500 150 -350 Weight 103 lb Intake: Intake, IV Amount 100 150 Left Forearm 100 Right Hand 150 Tube Feeding 600 600 Other 300 100 Output: Urine 500 700 350 Urethral (Yoo) 500 700 350 Other: # Bowel Movements 1 1 1 - Medications Medications: Current Medications Aspirin (Aspirin) 325 mg PO DAILY [facility] Last Admin: 07/26/15 11:17 Dose: 325 mg Clopidogrel Bisulfate (Plavix) 75 mg PO DAILY [facility] Last Admin: 07/26/15 11:17 Dose: 75 mg Docusate Sodium (Colace Liquid) 100 mg PEG BID [facility] Last Admin: 07/26/15 11:17 Dose: 100 mg Enoxaparin Sodium (Lovenox) 40 mg SC DAILY [facility] Last Admin: 07/26/15 11:16 Dose: 40 mg Famotidine (Pepcid) 20 mg PO BID [facility] Last Admin: 07/26/15 11:17 Dose: 20 mg Fosphenytoin Sodium 100 mg/ (Sodium Chloride) 52 mls @ 100 mls/hr IV Q8H [facility] Last Admin: 07/26/15 11:16 Dose: 100 mls/hr Cefepime HCl 1 gm/ Dextrose 50 mls @ 100 mls/hr IVPB Q12H [facility] Last Admin: 07/26/15 05:21 Dose: 100 mls/hr Lisinopril (Zestril) 5 mg PO DAILY [facility] Last Admin: 07/26/15 11:17 Dose: 5 mg Polyethylene Glycol (Miralax) 17 gm PO DAILY [facility] Last Admin: 07/26/15 11:16 Dose: 17 gm - Labs Labs (last 24 hours): Laboratory Results - last 24 hr 07/26/15 07/26/15 08:41 10:51 WBC 9.7 RBC 3.51 L Hgb 10.7 L Hct 32.9 L MCV 93.7 MCH 30.4 MCHC 32.5 L RDW 14.8 H Plt Count 311 MPV 8.1 Neut % (Auto) 67.9 Lymph % (Auto) 14.[address] [place] % (Auto) 10.7 H Eos % (Auto) 6.4 H Baso % (Auto) 0.6 Neut # 6.6 Lymph # 1.4 [place] # 1.0 H Eos # 0.6 Baso # 0.1 Sodium 140 Potassium 4.4 Chloride 101 Carbon Dioxide 28 Anion Gap 15 BUN 20 Creatinine 0.5 L Est GFR ( Amer) > 60 Est GFR (Non-Af Amer) > 60 Random Glucose 100 Calcium 8.4 Phosphorus 3.9 Magnesium 2.2 Total Bilirubin 0.5 AST 123 H ALT 231 H Alkaline Phosphatase 159 H Total Protein 7.3 Albumin 3.2 L Globulin 4.0 H Albumin/Globulin Ratio 0.8 L Attending/Attestation - Attestation I have personally seen and examined this patient.: Yes I have fully participated in the care of the patient.: Yes I have reviewed all pertinent clinical information: Yes Notes (Text): 07/26/15 16:11 Patient seen and examined at bedside Patient is anoic and unresponsive No change in clinical condition Continue current management
[2015-07-26 09:29] LABS: ALBUMIN 3.2 g/dL (3.5-5.0)
[2015-07-26 09:32] LABS: ALB/GLOB RATIO 0.8 (1.0-2.1); ALT/SGPT 231 U/L (21-72); AST/SGOT 123 U/L (17-59); BLOOD UREA NITROGEN 20 mg/dL (9-20); GFR NON-AFRICAN AMERICAN > 60
[2015-07-26 09:33] LABS: CALCIUM 8.4 mg/dL (8.4-10.2)
[2015-07-26 10:55] LABS: BASO # 0.1 K/uL (0.0-0.2); BASO % 0.6 % (0.0-2.0); EOS # 0.6 K/uL (0.0-0.7); EOS % 6.4 % (0.0-4.0); HEMOGLOBIN 10.7 g/dL (12.0-18.0); LYMPH # 1.4 K/uL (1.0-4.3); LYMPH % 14.4 % (20.0-40.0); MEAN CELL VOLUME 93.7 fL (80.0-94.0); MEAN CORPUSCULAR HEMOGLOBIN 30.4 pg (27.0-31.0); MEAN CORPUSCULAR HGB CONC 32.5 g/dL (33.0-37.0); MEAN PLATELET VOLUME 8.1 fL (7.2-11.7); MONO % 10.7 % (0.0-10.0); NEUT # 6.6 K/uL (1.8-7.0); NEUT % 67.9 % (50.0-75.0); RBC 3.51 Mil/uL (4.40-5.90); RED CELL DISTRIBUTION WIDTH 14.8 % (11.5-14.5); WHITE BLOOD COUNT 9.7 K/uL (4.8-10.8)
[2015-07-26] MEDS: POLYETHYLENE GLYCOL 3350 17 GM/Dose PACKET PO SCH (11:16)
[2015-07-26] MEDS: Enoxaparin 40 mg Syringe SC SCH (11:16)
[2015-07-27] MEDS: Fosphenytoin 100 MG in Sodium Chloride 0.9% 50 ML IV SCH ×3 (03:26→20:54)
--- NOTE | 2015-07-27 09:39 | CP.PCM.PN ---
<Manuel Jara - Last Filed: 07/27/15 09:37> Subjective - Subjective Subjective: Patient seen and examined. Patient non-responsive to verbal or tactile stimulus. No acute distress. No acute events overnight. Review of Systems - Review of Systems Systems not reviewed;Unavailable: Acuity of Condition Review of Systems: Non-responsive. On trach Objective - Vital Signs/Intake and Output Vital Signs (last 24 hours): Vital Signs - 24 hr 07/26/15 07/26/15 07/27/15 14:00 22:07 05:00 Temperature 97.8 F 97.0 F L 98.2 F Pulse Rate 78 67 96 H Respiratory 20 17 16 Rate Blood Pressure 93/74 L 103/69 90/62 L O2 Sat by Pulse 100 100 100 Oximetry Intake and Output (last 12 hours): Intake & Output 07/26/15 07/27/15 07/27/15 18:59 06:59 18:59 Output Total 350 800 Balance -350 -800 Output: Urine 350 800 Urethral (Yoo) 350 800 Other: # Bowel Movements 1 - Medications Medications: Current Medications Aspirin (Aspirin) 325 mg PO DAILY [facility] Last Admin: 07/26/15 11:17 Dose: 325 mg Clopidogrel Bisulfate (Plavix) 75 mg PO DAILY [facility] Last Admin: 07/26/15 11:17 Dose: 75 mg Docusate Sodium (Colace Liquid) 100 mg PEG BID [facility] Last Admin: 07/26/15 17:17 Dose: 100 mg Enoxaparin Sodium (Lovenox) 40 mg SC DAILY [facility] Last Admin: 07/26/15 11:16 Dose: 40 mg Famotidine (Pepcid) 20 mg PO BID [facility] Last Admin: 07/26/15 17:17 Dose: 20 mg Fosphenytoin Sodium 100 mg/ (Sodium Chloride) 52 mls @ 100 mls/hr IV Q8H [facility] Last Admin: 07/27/15 03:26 Dose: 100 mls/hr Lisinopril (Zestril) 5 mg PO DAILY [facility] Last Admin: 07/26/15 11:17 Dose: 5 mg Polyethylene Glycol (Miralax) 17 gm PO DAILY [facility] Last Admin: 07/26/15 11:16 Dose: 17 gm - Labs Labs (last 24 hours): Laboratory Results - last 24 hr 07/26/15 10:51 WBC 9.7 RBC 3.51 L Hgb 10.7 L Hct 32.9 L MCV 93.7 MCH 30.4 MCHC 32.5 L RDW 14.8 H Plt Count 311 MPV 8.1 Neut % (Auto) 67.9 Lymph % (Auto) 14.4 L [place] % (Auto) 10.7 H Eos % (Auto) 6.4 H Baso % (Auto) 0.6 Neut # 6.6 Lymph # 1.4 [place] # 1.0 H Eos # 0.6 Baso # 0.1 - Constitutional Appears: Chronically Ill - Head Exam Head Exam: NORMAL INSPECTION - Eye Exam Eye Exam: Normal appearance - ENT Exam ENT Exam: Mucous Membranes Moist - Neck Exam Additional comments: Trach collar - Respiratory Exam Respiratory Exam: NORMAL BREATHING PATTERN. absent: Rales, Rhonchi, Wheezes - Cardiovascular Exam Cardiovascular Exam: +S1, +S2. absent: Diastolic murmur, Gallop, Rubs, Systolic Murmur - GI/Abdominal Exam GI & Abdominal Exam: Hypoactive Bowel Sounds, Soft. absent: Distended, Firm, Rigid Additional comments: PEG Tube in place - Extremities Exam Extremities exam: absent: pedal edema - Skin Skin Exam: Normal Color Assessment/Plan (1) Chest congestion Current Visit: Yes Status: Acute Comment: sputum culture (07/18): Pseudomonas aeruginosa IV Cefepime 1gm q12h started 07/21 and completed on 07/26/15. Leukocytosis resolved and patient afebrile. Monitor vitals and CBC. (2) Thrombophlebitis of superficial veins of upper extremities Current Visit: Yes Status: Acute Comment: Venous doppler - thrombosis of right cephalic vein (superficial) Lovenox 40mg SC daily Warm compresses to area 15 minutes, 3x a day (3) Edema of upper extremity Current Visit: Yes Status: Acute Comment: Venous doppler - thrombosis of right cephalic vein (superficial) see above plan (4) Urinary tract infection Current Visit: Yes Status: Acute Comment: Urine culture 07/21 showed Beta hemolytic Strep Group B sensitive to ampicillin ampicillin 500mg PEG TID started 07/23 and then discontinued. ID consulted - Dr. Armstrong - help very much appreciated. Leukocytosis resolved and patient afebrile. Monitor patient. (5) Transaminitis Current Visit: Yes Status: Acute Comment: LFTs continue to be elevated Hepatitis panel negative continue to monitor LFTs (6) Respiratory failure Current Visit: Yes Status: Acute Comment: Dr. Salgado, Pulmonology, on case. Help very much appreciated. Patient on trach (7) Anoxic encephalopathy Current Visit: Yes Status: Acute Comment: Spontaneous movements of mouth and limbs Unresponsive to painful and verbal stimuli Clinical status remains unchanged (8) STEMI (ST elevation myocardial infarction) Current Visit: Yes Status: Acute Comment: Continue ASA 325mg PO daily Continue Lisinopril 5mg PO daily Continue Plavix 75mg pO daily Dr. Figueroa on case. Help appreciated. (9) Seizures Current Visit: Yes Status: Acute Comment: Dr. Garcia on case-help appreciated Continue Fosphenytoin 100mg IVP Q8 No seizure activity likley secondary to anoxic brain injury Monitor for seizure activity (10) Prophylactic measure Current Visit: Yes Status: Acute Comment: Pepcid 20 mg PO q12 SCD's Plavix Miralax Colace BID <Donnell Ying M - Last Filed: 07/27/15 14:49> Objective - Vital Signs/Intake and Output Vital Signs (last 24 hours): Vital Signs - 24 hr 07/26/15 07/27/15 22:07 05:00 Temperature 97.0 F L 98.2 F Pulse Rate 67 96 H Respiratory 17 16 Rate Blood Pressure 103/69 90/62 L O2 Sat by Pulse 100 100 Oximetry Intake and Output (last 12 hours): Intake & Output 07/26/15 07/27/15 07/27/15 18:59 06:59 18:59 Output Total 350 800 Balance -350 -800 Output: Urine 350 800 Urethral (Yoo) 350 800 Other: # Bowel Movements 1 - Medications Medications: Current Medications Aspirin (Aspirin) 325 mg PO DAILY [facility] Last Admin: 07/27/15 10:57 Dose: 325 mg Clopidogrel Bisulfate (Plavix) 75 mg PO DAILY [facility] Last Admin: 07/27/15 10:57 Dose: 75 mg Docusate Sodium (Colace Liquid) 100 mg PEG BID [facility] Last Admin: 07/27/15 10:57 Dose: 100 mg Enoxaparin Sodium (Lovenox) 40 mg SC DAILY [facility] Last Admin: 07/27/15 10:57 Dose: 40 mg Famotidine (Pepcid) 20 mg PO BID [facility] Last Admin: 07/27/15 10:57 Dose: 20 mg Fosphenytoin Sodium 100 mg/ (Sodium Chloride) 52 mls @ 100 mls/hr IV Q8H [facility] Last Admin: 07/27/15 11:01 Dose: 100 mls/hr Lisinopril (Zestril) 5 mg PO DAILY [facility] Last Admin: 07/27/15 10:57 Dose: 5 mg Polyethylene Glycol (Miralax) 17 gm PO DAILY [facility] Last Admin: 07/27/15 10:57 Dose: 17 gm Attending/Attestation - Attestation I have personally seen and examined this patient.: Yes I have fully participated in the care of the patient.: Yes I have reviewed all pertinent clinical information: Yes Notes (Text): 07/27/15 14:48 Patient seen and examined independently. The management was discussed with the residents during rounds earlier. There is no change in the clinical condition. We will continue current management.
[2015-07-27] MEDS: POLYETHYLENE GLYCOL 3350 17 GM/Dose PACKET PO SCH (10:57)
[2015-07-27] MEDS: Enoxaparin 40 mg Syringe SC SCH (10:57)
--- NOTE | 2015-07-28 01:17 | CP.PCM.PN ---
Subjective - Subjective Subjective: Patient seen and examined. Patient non-responsive to verbal or tactile stimulus. No acute distress. No acute events overnight as per nursing. Vent Settings: UP=628 Peep=5 RR=12 O2=40% Review of Systems - Review of Systems Review of Systems: Trached and unresponsive. unable to obtain ROS Objective - Vital Signs/Intake and Output Vital Signs (last 24 hours): Vital Signs - 24 hr 07/27/15 07/27/15 07/27/15 05:00 14:00 21:51 Temperature 98.2 F 97.1 F L 97.9 F Pulse Rate 96 H 68 73 Respiratory 16 20 20 Rate Blood Pressure 90/62 L 93/65 L 109/69 O2 Sat by Pulse 100 100 100 Oximetry Intake and Output (last 12 hours): Intake & Output 07/27/15 07/27/15 07/28/15 06:59 18:59 06:59 Output Total 800 300 300 Balance -800 -300 -300 Output: Urine 800 300 300 Urethral (Yoo) 800 300 300 Other: # Bowel Movements 1 - Medications Medications: Current Medications Aspirin (Aspirin) 325 mg PO DAILY [facility] Last Admin: 07/27/15 10:57 Dose: 325 mg Clopidogrel Bisulfate (Plavix) 75 mg PO DAILY [facility] Last Admin: 07/27/15 10:57 Dose: 75 mg Docusate Sodium (Colace Liquid) 100 mg PEG BID [facility] Last Admin: 07/27/15 17:28 Dose: 100 mg Enoxaparin Sodium (Lovenox) 40 mg SC DAILY [facility] Last Admin: 07/27/15 10:57 Dose: 40 mg Famotidine (Pepcid) 20 mg PO BID [facility] Last Admin: 07/27/15 17:28 Dose: 20 mg Fosphenytoin Sodium 100 mg/ (Sodium Chloride) 52 mls @ 100 mls/hr IV Q8H [facility] Last Admin: 07/27/15 20:54 Dose: 100 mls/hr Lisinopril (Zestril) 5 mg PO DAILY [facility] Last Admin: 07/27/15 10:57 Dose: 5 mg Polyethylene Glycol (Miralax) 17 gm PO DAILY [facility] Last Admin: 07/27/15 10:57 Dose: 17 gm - Constitutional Appears: No Acute Distress - Head Exam Head Exam: NORMAL INSPECTION - Neck Exam Neck exam: absent: Lymphadenopathy Additional comments: trach in place - Respiratory Exam Respiratory Exam: Clear to PA & Lateral. absent: Wheezes - Cardiovascular Exam Cardiovascular Exam: REGULAR RHYTHM, +S1, +S2 - GI/Abdominal Exam GI & Abdominal Exam: Normal Bowel Sounds. absent: Organomegaly - Extremities Exam Extremities exam: normal inspection, pedal pulses present. absent: pedal edema - Neurological Exam Neurological exam: absent: Alert - Skin Skin Exam: Warm Assessment/Plan (1) Chest congestion Current Visit: Yes Status: Acute Comment: sputum culture (07/18): Pseudomonas aeruginosa IV Cefepime 1gm q12h started 07/21 and completed on 07/26/15. Leukocytosis resolved and patient afebrile. Monitor vitals and CBC. (2) Thrombophlebitis of superficial veins of upper extremities Current Visit: Yes Status: Acute Comment: Venous doppler - thrombosis of right cephalic vein (superficial) Lovenox 40mg SC daily Warm compresses to area 15 minutes, 3x a day (3) Edema of upper extremity Current Visit: Yes Status: Acute Comment: Venous doppler - thrombosis of right cephalic vein (superficial) see above plan (4) Anoxic encephalopathy Current Visit: Yes Status: Acute Comment: Spontaneous movements of mouth and limbs Unresponsive to painful and verbal stimuli Clinical status remains unchanged (5) Respiratory failure Current Visit: Yes Status: Acute Comment: Dr. Salgado, Pulmonology, on case. Help very much appreciated. Patient on trach (6) UTI (lower urinary tract infection) Current Visit: Yes Status: Acute Comment: Urine CX: Coag neg staph (positive for Pseudomonas in past) IV Cefepime 1gm q12h started 07/21 (7) Transaminitis Current Visit: Yes Status: Acute Comment: LFTs continue to be elevated Hepatitis panel negative continue to monitor LFTs (8) Cardiac arrest Current Visit: Yes Status: Acute Comment: s/p V-Tach arrest Continue Plavix 75mg PO daily Continue ASA 325mg PO daily Continue Lisinopril 5mg PO daily (9) STEMI (ST elevation myocardial infarction) Current Visit: Yes Status: Acute Comment: Continue ASA 325mg PO daily Continue Lisinopril 5mg PO daily Continue Plavix 75mg pO daily Dr. Figueroa on case. Help appreciated. (10) Seizures Current Visit: Yes Status: Acute Comment: Dr. Garcia on case-help appreciated Continue Fosphenytoin 100mg IVP Q8 No seizure activity likley secondary to anoxic brain injury Monitor for seizure activity (11) Prophylactic measure Current Visit: Yes Status: Acute Comment: Pepcid 20 mg PO q12 SCD's Plavix Miralax Colace BID
[2015-07-28] MEDS: Fosphenytoin 100 MG in Sodium Chloride 0.9% 50 ML IV SCH ×3 (04:58→20:01)
[2015-07-28 07:21] LABS: BASO # 0.1 K/uL (0.0-0.2); BASO % 0.7 % (0.0-2.0); EOS # 0.5 K/uL (0.0-0.7); EOS % 5.6 % (0.0-4.0); HEMOGLOBIN 11.2 g/dL (12.0-18.0); LYMPH # 1.1 K/uL (1.0-4.3); LYMPH % 12.7 % (20.0-40.0); MEAN CELL VOLUME 94.3 fL (80.0-94.0); MEAN CORPUSCULAR HEMOGLOBIN 31.1 pg (27.0-31.0); MEAN PLATELET VOLUME 8.7 fL (7.2-11.7); MONO # 0.9 K/uL (0.0-0.8); MONO % 11.1 % (0.0-10.0); NEUT # 5.9 K/uL (1.8-7.0); NEUT % 69.9 % (50.0-75.0); NRBC % 0.1 % (0.0-2.0); RBC 3.61 Mil/uL (4.40-5.90); RED CELL DISTRIBUTION WIDTH 15.1 % (11.5-14.5); WHITE BLOOD COUNT 8.5 K/uL (4.8-10.8)
[2015-07-28 07:49] LABS: ALBUMIN 3.3 g/dL (3.5-5.0)
[2015-07-28 07:51] LABS: GFR NON-AFRICAN AMERICAN > 60
[2015-07-28 07:52] LABS: ALB/GLOB RATIO 0.8 (1.0-2.1); ALT/SGPT 307 U/L (21-72); AST/SGOT 148 U/L (17-59); BLOOD UREA NITROGEN 17 mg/dL (9-20); CALCIUM 8.7 mg/dL (8.4-10.2)
[2015-07-28] MEDS: POLYETHYLENE GLYCOL 3350 17 GM/Dose PACKET PO SCH (09:38)
[2015-07-28] MEDS: Enoxaparin 40 mg Syringe SC SCH (09:39)
[2015-07-28 22:56] LABS: URINE AMORPHOUS SEDIMENT RARE /ul (<OCC); URINE BACTERIA RARE (<OCC); URINE BILIRUBIN NEGATIVE (NEGATIVE); URINE BLOOD NEGATIVE (NEGATIVE); URINE CLARITY Clear (Clear); URINE COLOR Yellow (YELLOW); URINE GLUCOSE (UA) Normal (Normal); URINE LEUKOCYTE ESTERASE Negative Leu/uL (Negative); URINE PROTEIN TRACE mg/dL (NEGATIVE)
--- NOTE | 2015-07-29 03:51 | CP.PCM.PN ---
<Sandra Mercedes - Last Filed: 07/29/15 06:27> Subjective - Subjective Subjective: Pt seen and examined. No acute events reported overnight as per nursing. Pt is vented and not responsive to verbal stimuli; however, responsive to painful stimuli. Pt's pupils are equal and reactive to light, pt's corneal and gag reflexes are intact. Unable to obtain to ROS. Review of Systems - Review of Systems Systems not reviewed;Unavailable: Intubated Objective - Vital Signs/Intake and Output Vital Signs (last 24 hours): Vital Signs - 24 hr 07/28/15 07/28/15 07/28/15 05:48 13:27 21:34 Temperature 98.8 F 98.8 F 99.4 F Pulse Rate 71 78 81 Respiratory 20 20 20 Rate Blood Pressure 98/63 L 112/72 122/87 O2 Sat by Pulse 100 100 100 Oximetry Intake and Output (last 12 hours): Intake & Output 07/28/15 07/28/15 07/29/15 06:59 18:59 06:59 Intake Total 920 Output Total 1050 400 Balance -130 -400 Weight 107 lb Intake: Tube Feeding 920 Output: Urine 1050 400 Urethral (Yoo) 1050 400 - Medications Medications: Current Medications Aspirin (Aspirin) 325 mg PO DAILY [facility] Last Admin: 07/28/15 09:38 Dose: 325 mg Clopidogrel Bisulfate (Plavix) 75 mg PO DAILY [facility] Last Admin: 07/28/15 09:38 Dose: 75 mg Docusate Sodium (Colace Liquid) 100 mg PEG BID [facility] Last Admin: 07/28/15 17:51 Dose: 100 mg Enoxaparin Sodium (Lovenox) 40 mg SC DAILY [facility] Last Admin: 07/28/15 09:39 Dose: 40 mg Famotidine (Pepcid) 20 mg PO BID [facility] Last Admin: 07/28/15 17:51 Dose: 20 mg Fosphenytoin Sodium 100 mg/ (Sodium Chloride) 52 mls @ 100 mls/hr IV Q8H [facility] Last Admin: 07/28/15 20:01 Dose: 100 mls/hr Lisinopril (Zestril) 5 mg PO DAILY [facility] Last Admin: 07/28/15 09:38 Dose: 5 mg Polyethylene Glycol (Miralax) 17 gm PO DAILY [facility] Last Admin: 07/28/15 09:38 Dose: 17 gm - Labs Labs (last 24 hours): Laboratory Results - last 24 hr 07/28/15 07/28/15 07:03 22:36 WBC 8.5 RBC 3.61 L Hgb 11.2 L Hct 34.0 L MCV 94.3 H MCH 31.1 H MCHC 33.0 RDW 15.1 H Plt Count 292 MPV 8.7 Neut % (Auto) 69.9 Lymph % (Auto) 12.7 L [place] % (Auto) 11.1 H Eos % (Auto) 5.6 H Baso % (Auto) 0.7 Neut # 5.9 Lymph # 1.1 [place] # 0.9 H Eos # 0.5 Baso # 0.1 Sodium 140 Potassium 4.5 Chloride 102 Carbon Dioxide 29 Anion Gap 14 BUN 17 Creatinine 0.5 L Est GFR ( Amer) > 60 Est GFR (Non-Af Amer) > 60 Random Glucose 119 H Calcium 8.7 Phosphorus 4.3 Magnesium 2.1 Total Bilirubin 0.4 AST 148 H D ALT 307 H D Alkaline Phosphatase 162 H Total Protein 7.4 Albumin 3.3 L Globulin 4.1 H Albumin/Globulin Ratio 0.8 L Urine Color Yellow Urine Clarity Clear Urine pH 7.0 Ur Specific [place] 1.019 Urine Protein Trace Urine Glucose (UA) Normal Urine Ketones Negative Urine Blood Negative Urine Nitrate Negative Urine Bilirubin Negative Urine Urobilinogen 2.0 Ur Leukocyte Esterase Negative Urine WBC (Auto) 2 Urine RBC (Auto) 6 H Amorphous Sediment Rare H Urine Bacteria Rare - Constitutional Appears: Non-toxic, No Acute Distress, Cachectic - Head Exam Head Exam: ATRAUMATIC, NORMAL INSPECTION - Eye Exam Eye Exam: Normal appearance, PERRL Pupil Exam: PERRL - Respiratory Exam Respiratory Exam: Clear to PA & Lateral, NORMAL BREATHING PATTERN - Cardiovascular Exam Cardiovascular Exam: REGULAR RHYTHM, +S1, +S2 - GI/Abdominal Exam GI & Abdominal Exam: Hypoactive Bowel Sounds (PEG Tube in place) - Extremities Exam Extremities exam: pedal pulses present - Skin Skin Exam: Normal Color Assessment/Plan (1) UTI (lower urinary tract infection) Current Visit: Yes Status: Acute Comment: UA (07/28): shows no WBC or Leuk esterases f/u Urine cx Urine CX (07/18): Coag neg staph (positive for Pseudomonas in past) IV Cefepime 1gm q12h started 07/21 (2) Chest congestion Current Visit: Yes Status: Acute Comment: f/u repeat sputum cx as ordered by ID sputum culture (07/18): Pseudomonas aeruginosa IV Cefepime 1gm q12h started 07/21 and completed on 07/26/15. Leukocytosis resolved and patient afebrile. Monitor vitals and CBC. (3) Transaminitis Current Visit: Yes Status: Acute Comment: LFTs continue to be elevated and are increasing Hepatitis panel negative continue to monitor LFTs (4) Anoxic encephalopathy Current Visit: Yes Status: Acute Comment: Spontaneous movements of mouth and limbs Unresponsive to painful and verbal stimuli Clinical status remains unchanged (5) Thrombophlebitis of superficial veins of upper extremities Current Visit: Yes Status: Acute Comment: Venous doppler - thrombosis of right cephalic vein (superficial) Lovenox 40mg SC daily Warm compresses to area 15 minutes, 3x a day (6) Edema of upper extremity Current Visit: Yes Status: Acute Comment: Venous doppler - thrombosis of right cephalic vein (superficial) see above plan (7) Respiratory failure Current Visit: Yes Status: Acute Comment: Dr. Salgado, Pulmonology, on case. Help very much appreciated. Patient on trach (8) STEMI (ST elevation myocardial infarction) Current Visit: Yes Status: Acute Comment: Continue ASA 325mg PO daily Continue Lisinopril 5mg PO daily Continue Plavix 75mg pO daily Dr. Figueroa on case. Help appreciated. (9) Seizures Current Visit: Yes Status: Acute Comment: Dr. Garcia on case-help appreciated Continue Fosphenytoin 100mg IVP Q8 No seizure activity likley secondary to anoxic brain injury Monitor for seizure activity (10) Prophylactic measure Current Visit: Yes Status: Acute Comment: Pepcid 20 mg PO q12 SCD's Plavix Miralax Colace BID <Donnell Ying M - Last Filed: 07/29/15 14:26> Objective - Vital Signs/Intake and Output Vital Signs (last 24 hours): Vital Signs - 24 hr 07/28/15 07/29/15 07/29/15 21:34 05:49 14:05 Temperature 99.4 F 97.2 F L 98.4 F Pulse Rate 81 81 88 Respiratory 20 20 20 Rate Blood Pressure 122/87 123/84 138/90 O2 Sat by Pulse 100 98 97 Oximetry Intake and Output (last 12 hours): Intake & Output 07/28/15 07/29/15 07/29/15 18:59 06:59 18:59 Intake Total 920 Output Total 850 Balance 70 Weight 105 lb Intake: Intake, IV Amount 100 Left Forearm 100 Tube Feeding 720 Other 100 Output: Gastric Amount 0 Stomach 0 Urine 850 Urethral (Yoo) 850 Other: # Bowel Movements 1 - Medications Medications: Current Medications Aspirin (Aspirin) 325 mg PO DAILY [facility] Last Admin: 07/29/15 10:53 Dose: 325 mg Clopidogrel Bisulfate (Plavix) 75 mg PO DAILY [facility] Last Admin: 07/29/15 10:53 Dose: 75 mg Docusate Sodium (Colace Liquid) 100 mg PEG BID [facility] Last Admin: 07/29/15 10:53 Dose: 100 mg Enoxaparin Sodium (Lovenox) 40 mg SC DAILY [facility] Last Admin: 07/29/15 10:52 Dose: 40 mg Famotidine (Pepcid) 20 mg PO BID [facility] Last Admin: 07/29/15 10:53 Dose: 20 mg Fosphenytoin Sodium 100 mg/ (Sodium Chloride) 52 mls @ 100 mls/hr IV Q8H [facility] Last Admin: 07/29/15 11:30 Dose: 100 mls/hr Lisinopril (Zestril) 5 mg PO DAILY [facility] Last Admin: 07/29/15 10:53 Dose: 5 mg Polyethylene Glycol (Miralax) 17 gm PO DAILY [facility] Last Admin: 07/29/15 10:53 Dose: 17 gm - Labs Labs (last 24 hours): Laboratory Results - last 24 hr 07/28/15 22:36 Urine Color Yellow Urine Clarity Clear Urine pH 7.0 Ur Specific [place] 1.019 Urine Protein Trace Urine Glucose (UA) Normal Urine Ketones Negative Urine Blood Negative Urine Nitrate Negative Urine Bilirubin Negative Urine Urobilinogen 2.0 Ur Leukocyte Esterase Negative Urine WBC (Auto) 2 Urine RBC (Auto) 6 H Amorphous Sediment Rare H Urine Bacteria Rare Attending/Attestation - Attestation I have personally seen and examined this patient.: Yes I have fully participated in the care of the patient.: Yes I have reviewed all pertinent clinical information: Yes Notes (Text): 07/29/15 14:26 Patient seen and examined at bedside No change in clinical condition Continue present management
[2015-07-29] MEDS: Fosphenytoin 100 MG in Sodium Chloride 0.9% 50 ML IV SCH ×3 (04:39→20:13)
[2015-07-29] MEDS: Enoxaparin 40 mg Syringe SC SCH (10:52)
[2015-07-29] MEDS: POLYETHYLENE GLYCOL 3350 17 GM/Dose PACKET PO SCH (10:53)
--- NOTE | 2015-07-30 01:16 | CP.PCM.PN ---
<Scout Marinelli - Last Filed: 07/30/15 01:14> Subjective - Subjective Subjective: Pt seen and examined at bedside. Pt has spontaneous movements with legs and arms and responds to painful stimuli. Pt unresponsive to verbal stimuli. No acute events per nurse. Review of Systems - Review of Systems Systems not reviewed;Unavailable: Acuity of Condition Objective - Vital Signs/Intake and Output Vital Signs (last 24 hours): Vital Signs - 24 hr 07/29/15 07/29/15 07/29/15 05:49 14:05 21:49 Temperature 97.2 F L 98.4 F 97.9 F Pulse Rate 81 88 66 Respiratory 20 20 20 Rate Blood Pressure 123/84 138/90 113/72 O2 Sat by Pulse 98 97 100 Oximetry Intake and Output (last 12 hours): Intake & Output 07/29/15 07/29/15 07/30/15 06:59 18:59 06:59 Intake Total 920 50 Output Total 850 720 300 Balance 70 -670 -300 Weight 105 lb Intake: Intake, IV Amount 100 50 Left Forearm 100 50 Tube Feeding 720 Other 100 Output: Gastric Amount 0 720 Stomach 0 720 Urine 850 300 Urethral (Yoo) 850 300 Other: # Bowel Movements 1 - Medications Medications: Current Medications Aspirin (Aspirin) 325 mg PO DAILY [facility] Last Admin: 07/29/15 10:53 Dose: 325 mg Clopidogrel Bisulfate (Plavix) 75 mg PO DAILY [facility] Last Admin: 07/29/15 10:53 Dose: 75 mg Docusate Sodium (Colace Liquid) 100 mg PEG BID [facility] Last Admin: 07/29/15 18:12 Dose: 100 mg Enoxaparin Sodium (Lovenox) 40 mg SC DAILY [facility] Last Admin: 07/29/15 10:52 Dose: 40 mg Famotidine (Pepcid) 20 mg PO BID [facility] Last Admin: 07/29/15 18:12 Dose: 20 mg Fosphenytoin Sodium 100 mg/ (Sodium Chloride) 52 mls @ 100 mls/hr IV Q8H [facility] Last Admin: 07/29/15 20:13 Dose: 100 mls/hr Lisinopril (Zestril) 5 mg PO DAILY [facility] Last Admin: 07/29/15 10:53 Dose: 5 mg Polyethylene Glycol (Miralax) 17 gm PO DAILY [facility] Last Admin: 07/29/15 10:53 Dose: 17 gm - Constitutional Appears: Non-toxic, No Acute Distress - Head Exam Head Exam: ATRAUMATIC, NORMAL INSPECTION, NORMOCEPHALIC - Eye Exam Eye Exam: Normal appearance Pupil Exam: NORMAL ACCOMODATION - Respiratory Exam Respiratory Exam: Clear to PA & Lateral, NORMAL BREATHING PATTERN. absent: Rales, Rhonchi Additional comments: On vent. - Cardiovascular Exam Cardiovascular Exam: REGULAR RHYTHM, +S1, +S2. absent: Gallop, Rubs - GI/Abdominal Exam GI & Abdominal Exam: Normal Bowel Sounds, Soft. absent: Guarding Additional comments: PEG tube. Assessment/Plan (1) Anoxic encephalopathy Current Visit: Yes Status: Acute Comment: Spontaneous movements of mouth and limbs Unresponsive to painful and verbal stimuli Clinical status remains unchanged (2) UTI (lower urinary tract infection) Current Visit: Yes Status: Acute Comment: UA (07/28): shows no WBC or Leuk esterases f/u Urine cx Urine CX (07/18): Coag neg staph (positive for Pseudomonas in past) IV Cefepime 1gm q12h started 07/21 (3) Respiratory failure Current Visit: Yes Status: Acute Comment: Dr. Salgado, Pulmonology, on case. Help very much appreciated. Patient on trach (4) Prophylactic measure Current Visit: Yes Status: Acute Comment: Pepcid 20 mg PO q12 SCD's Plavix Miralax Colace BID <Rashel Rodrigues - Last Filed: 07/30/15 16:44> Objective - Vital Signs/Intake and Output Vital Signs (last 24 hours): Vital Signs - 24 hr 07/29/15 07/30/15 07/30/15 21:49 06:43 14:00 Temperature 97.9 F 98.5 F 98.2 F Pulse Rate 66 69 71 Respiratory 20 20 20 Rate Blood Pressure 113/72 127/77 100/67 O2 Sat by Pulse 100 100 100 Oximetry Intake and Output (last 12 hours): Intake & Output 07/29/15 07/30/15 07/30/15 18:59 06:59 18:59 Intake Total 50 100 100 Output Total 720 925 250 Balance -670 -825 -150 Weight 104 lb Intake: Intake, IV Amount 50 100 100 Left Forearm 50 Right Hand 100 100 Output: Gastric Amount 720 Stomach 720 Urine 925 250 Urethral (Yoo) 925 250 Other: # Bowel Movements 1 - Medications Medications: Current Medications Aspirin (Aspirin) 325 mg PO DAILY [facility] Last Admin: 07/30/15 09:51 Dose: 325 mg Clopidogrel Bisulfate (Plavix) 75 mg PO DAILY [facility] Last Admin: 07/30/15 09:51 Dose: 75 mg Docusate Sodium (Colace Liquid) 100 mg PEG BID [facility] Last Admin: 07/30/15 09:51 Dose: 100 mg Enoxaparin Sodium (Lovenox) 40 mg SC DAILY [facility] Last Admin: 07/30/15 09:50 Dose: 40 mg Famotidine (Pepcid) 20 mg PO BID [facility] Last Admin: 07/30/15 09:51 Dose: 20 mg Fosphenytoin Sodium 100 mg/ (Sodium Chloride) 52 mls @ 100 mls/hr IV Q8H [facility] Last Admin: 07/30/15 14:22 Dose: 100 mls/hr Lisinopril (Zestril) 5 mg PO DAILY [facility] Last Admin: 07/30/15 09:51 Dose: 5 mg Polyethylene Glycol (Miralax) 17 gm PO DAILY [facility] Last Admin: 07/30/15 09:51 Dose: 17 gm - Labs Labs (last 24 hours): Laboratory Results - last 24 hr 07/30/15 07:16 WBC 9.6 RBC 3.57 L Hgb 11.2 L Hct 33.3 L MCV 93.3 MCH 31.2 H MCHC 33.5 RDW 14.9 H Plt Count 292 MPV 8.6 Neut % (Auto) 67.2 Lymph % (Auto) 14.4 L [place] % (Auto) 11.0 H Eos % (Auto) 7.0 H Baso % (Auto) 0.4 Neut # 6.5 Lymph # 1.4 [place] # 1.1 H Eos # 0.7 Baso # 0.0 Sodium 141 Potassium 4.4 Chloride 99 Carbon Dioxide 32 H Anion Gap 14 BUN 18 Creatinine 0.5 L Est GFR ( Amer) > 60 Est GFR (Non-Af Amer) > 60 Random Glucose 96 Calcium 8.7 Phosphorus 4.3 Magnesium 2.1 Total Bilirubin 0.4 AST 150 H ALT 351 H Alkaline Phosphatase 169 H Total Protein 7.6 Albumin 3.3 L Globulin 4.2 H Albumin/Globulin Ratio 0.8 L Attending/Attestation - Attestation I have personally seen and examined this patient.: Yes I have fully participated in the care of the patient.: Yes I have reviewed all pertinent clinical information: Yes Notes (Text): 07/30/15 16:43 patient seen and examined during round with residents pt remains on vent, no new events, cont supportive mx
[2015-07-30] MEDS: Fosphenytoin 100 MG in Sodium Chloride 0.9% 50 ML IV SCH ×3 (04:02→19:57)
[2015-07-30 07:47] LABS: BASO % 0.4 % (0.0-2.0); EOS # 0.7 K/uL (0.0-0.7); HEMOGLOBIN 11.2 g/dL (12.0-18.0); LYMPH # 1.4 K/uL (1.0-4.3); LYMPH % 14.4 % (20.0-40.0); MEAN CELL VOLUME 93.3 fL (80.0-94.0); MEAN CORPUSCULAR HEMOGLOBIN 31.2 pg (27.0-31.0); MEAN CORPUSCULAR HGB CONC 33.5 g/dL (33.0-37.0); MEAN PLATELET VOLUME 8.6 fL (7.2-11.7); MONO # 1.1 K/uL (0.0-0.8); NEUT # 6.5 K/uL (1.8-7.0); NEUT % 67.2 % (50.0-75.0); RBC 3.57 Mil/uL (4.40-5.90); RED CELL DISTRIBUTION WIDTH 14.9 % (11.5-14.5); WHITE BLOOD COUNT 9.6 K/uL (4.8-10.8)
[2015-07-30 08:43] LABS: ALBUMIN 3.3 g/dL (3.5-5.0)
[2015-07-30 08:46] LABS: ALB/GLOB RATIO 0.8 (1.0-2.1); AST/SGOT 150 U/L (17-59); BLOOD UREA NITROGEN 18 mg/dL (9-20); GFR NON-AFRICAN AMERICAN > 60
[2015-07-30 08:47] LABS: ALT/SGPT 351 U/L (21-72); CALCIUM 8.7 mg/dL (8.4-10.2)
[2015-07-30] MEDS: Enoxaparin 40 mg Syringe SC SCH (09:50)
[2015-07-30] MEDS: POLYETHYLENE GLYCOL 3350 17 GM/Dose PACKET PO SCH (09:51)
[2015-07-31] MEDS: Fosphenytoin 100 MG in Sodium Chloride 0.9% 50 ML IV SCH ×3 (03:30→20:56)
[2015-07-31] MEDS: POLYETHYLENE GLYCOL 3350 17 GM/Dose PACKET PO SCH (09:35)
[2015-07-31] MEDS: Enoxaparin 40 mg Syringe SC SCH (09:35)
--- NOTE | 2015-07-31 14:33 | CP.PCM.PN ---
<Yesenia Mayer - Last Filed: 07/31/15 17:02> Subjective - Subjective Subjective: Pt seen and examined this morning. No acute events overnight per nurse. Ventilator Settings: O2 concentration: 40% PEEP: 5 Respiratory Rate: 12 Tidal Volume: 450 Review of Systems - Review of Systems Systems not reviewed;Unavailable: Intubated Review of Systems: patient trached and unresponsive. unable to obtain ROS Objective - Vital Signs/Intake and Output Vital Signs (last 24 hours): Vital Signs - 24 hr 07/30/15 07/31/15 07/31/15 21:40 05:58 08:58 Temperature 97.3 F L 98.5 F Pulse Rate 88 77 77 Respiratory 20 16 Rate Blood Pressure 137/89 108/69 O2 Sat by Pulse 98 100 Oximetry 07/31/15 13:25 Temperature 98.1 F Pulse Rate 82 Respiratory 20 Rate Blood Pressure 104/72 O2 Sat by Pulse 100 Oximetry Intake and Output (last 12 hours): Intake & Output 07/30/15 07/31/15 07/31/15 18:59 06:59 18:59 Intake Total 100 900 Output Total 250 1600 Balance -150 -700 Intake: Intake, IV Amount 100 Right Hand 100 Tube Feeding 900 Output: Urine 250 1600 Urethral (Yoo) 250 1600 Other: # Bowel Movements 1 1 - Medications Medications: Current Medications Aspirin (Aspirin) 325 mg PO DAILY [facility] Last Admin: 07/31/15 09:35 Dose: 325 mg Clopidogrel Bisulfate (Plavix) 75 mg PO DAILY [facility] Last Admin: 07/31/15 09:35 Dose: 75 mg Enoxaparin Sodium (Lovenox) 40 mg SC DAILY [facility] Last Admin: 07/31/15 09:35 Dose: 40 mg Famotidine (Pepcid) 20 mg PO BID [facility] Last Admin: 07/31/15 09:35 Dose: 20 mg Fosphenytoin Sodium 100 mg/ (Sodium Chloride) 52 mls @ 100 mls/hr IV Q8H [facility] Last Admin: 07/31/15 12:00 Dose: 100 mls/hr Lisinopril (Zestril) 5 mg PO DAILY [facility] Last Admin: 07/31/15 09:35 Dose: 5 mg Polyethylene Glycol (Miralax) 17 gm PO DAILY [facility] Last Admin: 07/31/15 09:35 Dose: 17 gm - Constitutional Appears: Chronically Ill - Head Exam Head Exam: ATRAUMATIC, NORMAL INSPECTION, NORMOCEPHALIC - Respiratory Exam Respiratory Exam: absent: Rales, Rhonchi Additional comments: trached on vent - Cardiovascular Exam Cardiovascular Exam: Tachycardia, +S1, +S2 - GI/Abdominal Exam GI & Abdominal Exam: Normal Bowel Sounds - Extremities Exam Extremities exam: absent: pedal edema - Neurological Exam Neurological exam: absent: Alert, Oriented x3 - Skin Skin Exam: Dry, Normal Color Assessment/Plan (1) Chest congestion Current Visit: Yes Status: Acute Comment: Repeat sputum culture (07/28) shows Pseudomonas aeruginosa sputum culture (07/18): Pseudomonas aeruginosa IV Cefepime 1gm q12h started 07/21 and completed on 07/26/15. Leukocytosis resolved and patient afebrile. Monitor vitals and CBC. (2) Thrombophlebitis of superficial veins of upper extremities Current Visit: Yes Status: Acute Comment: Venous doppler prelim report - thrombosis of right cephalic vein ( superficial) Shows Abnormality Lovenox 40mg SC daily Warm compresses to area 15 minutes, 3x a day f/u final venous doppler report (3) Edema of upper extremity Current Visit: Yes Status: Acute Comment: Venous doppler - thrombosis of right cephalic vein (superficial) Shows Abnormality see above plan (4) Anoxic encephalopathy Current Visit: Yes Status: Acute Comment: Spontaneous movements of mouth and limbs Unresponsive to painful and verbal stimuli Clinical status remains unchanged (5) Respiratory failure Current Visit: Yes Status: Acute Comment: Dr. Salgado, Pulmonology, on case. Help very much appreciated. Patient on trach (6) UTI (lower urinary tract infection) Current Visit: Yes Status: Acute Comment: Urine Cx (07/28): neg UA (07/28): shows no WBC or Leuk esterases Urine CX (07/18): Coag neg staph (positive for Pseudomonas in past) IV Cefepime 1gm q12h started 07/21 and completed 07/26. (7) Transaminitis Current Visit: Yes Status: Acute Comment: LFTs continue to be elevated and are increasing Hepatitis panel negative continue to monitor LFTs (8) Cardiac arrest Current Visit: Yes Status: Acute Comment: s/p V-Tach arrest Continue Plavix 75mg PO daily Continue ASA 325mg PO daily Continue Lisinopril 5mg PO daily (9) STEMI (ST elevation myocardial infarction) Current Visit: Yes Status: Acute Comment: Continue ASA 325mg PO daily Continue Lisinopril 5mg PO daily Continue Plavix 75mg pO daily Dr. Figueroa on case. Help appreciated. (10) Seizures Current Visit: Yes Status: Acute Comment: Dr. Garcia on case-help appreciated Continue Fosphenytoin 100mg IVP Q8 No seizure activity likley secondary to anoxic brain injury Monitor for seizure activity (11) Prophylactic measure Current Visit: Yes Status: Acute Comment: Pepcid 20 mg PO q12 SCD's Plavix Miralax Colace BID <Rashel Rodrigues - Last Filed: 07/31/15 17:35> Objective - Vital Signs/Intake and Output Vital Signs (last 24 hours): Vital Signs - 24 hr 07/30/15 07/31/15 07/31/15 21:40 05:58 08:58 Temperature 97.3 F L 98.5 F Pulse Rate 88 77 77 Respiratory 20 16 Rate Blood Pressure 137/89 108/69 O2 Sat by Pulse 98 100 Oximetry 07/31/15 13:25 Temperature 98.1 F Pulse Rate 82 Respiratory 20 Rate Blood Pressure 104/72 O2 Sat by Pulse 100 Oximetry Intake and Output (last 12 hours): Intake & Output 07/30/15 07/31/15 07/31/15 18:59 06:59 18:59 Intake Total 100 900 Output Total 250 1600 Balance -150 -700 Intake: Intake, IV Amount 100 Right Hand 100 Tube Feeding 900 Output: Urine 250 1600 Urethral (Yoo) 250 1600 Other: # Bowel Movements 1 1 - Medications Medications: Current Medications Aspirin (Aspirin) 325 mg PO DAILY [facility] Last Admin: 07/31/15 09:35 Dose: 325 mg Clopidogrel Bisulfate (Plavix) 75 mg PO DAILY [facility] Last Admin: 07/31/15 09:35 Dose: 75 mg Enoxaparin Sodium (Lovenox) 40 mg SC DAILY [facility] Last Admin: 07/31/15 09:35 Dose: 40 mg Famotidine (Pepcid) 20 mg PO BID [facility] Last Admin: 07/31/15 17:20 Dose: 20 mg Fosphenytoin Sodium 100 mg/ (Sodium Chloride) 52 mls @ 100 mls/hr IV Q8H [facility] Last Admin: 07/31/15 12:00 Dose: 100 mls/hr Lisinopril (Zestril) 5 mg PO DAILY [facility] Last Admin: 07/31/15 09:35 Dose: 5 mg Polyethylene Glycol (Miralax) 17 gm PO DAILY [facility] Last Admin: 07/31/15 09:35 Dose: 17 gm Attending/Attestation - Attestation I have personally seen and examined this patient.: Yes I have fully participated in the care of the patient.: Yes I have reviewed all pertinent clinical information: Yes Notes (Text): 07/31/15 17:34 patient seen and examined during round with residents pt is remains on vent, no acute events, pt is still nonverbal, but pt opening eyes spontaneously, cont TF as tolerated, ABx Vent weaning as per Pulm
--- NOTE | 2015-07-31 21:31 | CP.PCM.PN ---
Subjective - Subjective Subjective: Dictated Objective - Vital Signs/Intake and Output Vital Signs (last 24 hours): Vital Signs - 24 hr 07/30/15 07/31/15 07/31/15 21:40 05:58 08:58 Temperature 97.3 F L 98.5 F Pulse Rate 88 77 77 Respiratory 20 16 Rate Blood Pressure 137/89 108/69 O2 Sat by Pulse 98 100 Oximetry 07/31/15 13:25 Temperature 98.1 F Pulse Rate 82 Respiratory 20 Rate Blood Pressure 104/72 O2 Sat by Pulse 100 Oximetry Intake and Output (last 12 hours): Intake & Output 07/31/15 07/31/15 08/01/15 06:59 18:59 06:59 Intake Total 900 950 Output Total 1600 500 Balance -700 450 Intake: Intake, IV Amount 50 Left Forearm 50 Tube Feeding 900 600 Other 300 Output: Urine 1600 500 Urethral (Yoo) 1600 500 Other: # Bowel Movements 1 1 - Medications Medications: Current Medications Aspirin (Aspirin) 325 mg PO DAILY [facility] Last Admin: 07/31/15 09:35 Dose: 325 mg Clopidogrel Bisulfate (Plavix) 75 mg PO DAILY [facility] Last Admin: 07/31/15 09:35 Dose: 75 mg Enoxaparin Sodium (Lovenox) 40 mg SC DAILY [facility] Last Admin: 07/31/15 09:35 Dose: 40 mg Famotidine (Pepcid) 20 mg PO BID [facility] Last Admin: 07/31/15 17:20 Dose: 20 mg Fosphenytoin Sodium 100 mg/ (Sodium Chloride) 52 mls @ 100 mls/hr IV Q8H [facility] Last Admin: 07/31/15 20:56 Dose: 100 mls/hr Lisinopril (Zestril) 5 mg PO DAILY [facility] Last Admin: 07/31/15 09:35 Dose: 5 mg Polyethylene Glycol (Miralax) 17 gm PO DAILY [facility] Last Admin: 07/31/15 09:35 Dose: 17 gm - Constitutional Appears: No Acute Distress
[2015-08-01] MEDS: Fosphenytoin 100 MG in Sodium Chloride 0.9% 50 ML IV SCH ×3 (04:19→20:00)
--- NOTE | 2015-08-01 06:07 | PN ---
DATE: 07/31/2015 SUBJECTIVE: The patient remains on the vent. He is intubated, unresponsive. Trach site appears unr emarkable. PHYSICAL EXAMINATION: VITAL SIGNS: Temperature is 98.1, pulse is 82, blood pressure is 104/72, and respirations are 20. HEENT: Unremarkable. NECK: Supple. LUNGS: Clear to auscultation. No crackles or rales present. HEART: S1 and S2 regular. No murmurs appreciated. ABDOMEN: Soft and nontender. PEG site is present. EXTREMITIES: No edema, clubbing or cyanosis noted. He has foot protectors on. LABORATORY DATA: White count yesterday was 9.6. Chemistry shows CO2 is 32 and creatinine is 0.5. T he patient is on antibiotics. His urine culture is negative. Sputum continues to have Pseudomonas. The chest x-ray is negative. IMPRESSION AND PLAN: So, he was started on antibiotics and has been on antibiotics since . Raman rrow will be the 9 day, so in 2 days, we will discontinue the antibiotics, as Pseudomonas may be a colonization as he is on a vent and urinary tract infection has resolved. Belem Armstrong MD cc: [id number] TT: 08/01/2015 00:49:53 an
[2015-08-01] MEDS: Enoxaparin 40 mg Syringe SC SCH (09:28)
[2015-08-01] MEDS: POLYETHYLENE GLYCOL 3350 17 GM/Dose PACKET PO SCH (09:28)
[2015-08-01 11:46] LABS: BASO % 0.2 % (0.0-2.0); EOS # 0.6 K/uL (0.0-0.7); EOS % 4.2 % (0.0-4.0); HEMOGLOBIN 11.1 g/dL (12.0-18.0); LYMPH # 1.3 K/uL (1.0-4.3); LYMPH % 9.8 % (20.0-40.0); MEAN CELL VOLUME 93.3 fL (80.0-94.0); MEAN CORPUSCULAR HEMOGLOBIN 30.6 pg (27.0-31.0); MEAN CORPUSCULAR HGB CONC 32.8 g/dL (33.0-37.0); MEAN PLATELET VOLUME 8.6 fL (7.2-11.7); MONO # 1.1 K/uL (0.0-0.8); NEUT # 10.5 K/uL (1.8-7.0); NEUT % 77.8 % (50.0-75.0); PLATELET COUNT 303 K/uL (130-400); RBC 3.63 Mil/uL (4.40-5.90); RED CELL DISTRIBUTION WIDTH 14.9 % (11.5-14.5); WHITE BLOOD COUNT 13.5 K/uL (4.8-10.8)
[2015-08-01 11:54] LABS: ALBUMIN 3.3 g/dL (3.5-5.0)
[2015-08-01 11:57] LABS: ALB/GLOB RATIO 0.8 (1.0-2.1); AST/SGOT 111 U/L (17-59); GFR NON-AFRICAN AMERICAN > 60
[2015-08-01 11:58] LABS: ALT/SGPT 303 U/L (21-72); BLOOD UREA NITROGEN 18 mg/dL (9-20); CALCIUM 8.7 mg/dL (8.4-10.2)
[2015-08-01 12:56] LABS: BANDS 11 % (0-0); BASOPHIL 1 % (0-2); EOSINOPHIL 5 % (0-4); LYMPHOCYTE 10 % (20-40); MONOCYTE 9 % (0-10); NEUTROPHIL 64 % (50-75); PLATELET ESTIMATE NORMAL (NORMAL); TOTAL CELLS COUNTED 100
--- NOTE | 2015-08-01 16:05 | CP.PCM.PN ---
<Yesenia Mayer - Last Filed: 08/01/15 16:02> Subjective - Subjective Subjective: Pt seen and examined at bedside. No acute events overnight per nurse. Noticed some mobility today. Upon abdominal palpation, patient moved both arms and upper body in effort to stretch. I observed him for several minutes and it did not seem like a reflex or a seizure. Then I attempted to talk to him and touch his face and patient briefly moved gaze toward the direction of my hand. However, upon further stimulation, neither the arm stretching nor eye movement were reproducible. Review of Systems - Review of Systems Review of Systems: Patient unresponsive, trached and unable to provide ROS Objective - Vital Signs/Intake and Output Vital Signs (last 24 hours): Vital Signs - 24 hr 07/31/15 08/01/15 08/01/15 21:36 05:55 12:22 Temperature 98.2 F 99 F Pulse Rate 75 86 86 Respiratory 20 20 Rate Blood Pressure 105/75 152/90 H O2 Sat by Pulse 100 97 Oximetry 08/01/15 14:59 Temperature 99 F Pulse Rate 84 Respiratory 20 Rate Blood Pressure 112/78 O2 Sat by Pulse 99 Oximetry Intake and Output (last 12 hours): Intake & Output 07/31/15 08/01/15 08/01/15 18:59 06:59 18:59 Intake Total 950 820 Output Total 500 750 425 Balance 450 70 -425 Weight 103 lb Intake: Intake, IV Amount 50 Left Forearm 50 Tube Feeding 600 720 Other 300 100 Output: Urine 500 750 425 Urethral (Yoo) 500 750 425 Other: # Bowel Movements 1 1 - Medications Medications: Current Medications Enoxaparin Sodium (Lovenox) 40 mg SC DAILY [facility] Last Admin: 08/01/15 09:28 Dose: 40 mg Fosphenytoin Sodium 100 mg/ (Sodium Chloride) 52 mls @ 100 mls/hr IV Q8H [facility] Last Admin: 08/01/15 12:58 Dose: 100 mls/hr - Labs Labs (last 24 hours): Laboratory Results - last 24 hr 08/01/15 11:32 WBC 13.5 H RBC 3.63 L Hgb 11.1 L Hct 33.9 L MCV 93.3 MCH 30.6 MCHC 32.8 L RDW 14.9 H Plt Count 303 MPV 8.6 Neut % (Auto) 77.8 H Lymph % (Auto) 9.8 L [place] % (Auto) 8.0 Eos % (Auto) 4.2 H Baso % (Auto) 0.2 Neut # 10.5 H Lymph # 1.3 Carter # 1.1 H Eos # 0.6 Baso # 0.0 Neutrophils % (Manual) 64 Band Neutrophils % 11 H Lymphocytes % (Manual) 10 L Monocytes % (Manual) 9 Eosinophils % (Manual) 5 H Basophils % (Manual) 1 Platelet Estimate Normal RBC Morphology Normal Sodium 140 Potassium 3.9 Chloride 99 Carbon Dioxide 30 Anion Gap 15 BUN 18 Creatinine 0.5 L Est GFR ( Amer) > 60 Est GFR (Non-Af Amer) > 60 Random Glucose 127 H Calcium 8.7 Phosphorus 4.4 Magnesium 2.1 Total Bilirubin 0.4 AST 111 H D ALT 303 H Alkaline Phosphatase 169 H Total Protein 7.4 Albumin 3.3 L Globulin 4.1 H Albumin/Globulin Ratio 0.8 L - Constitutional Appears: No Acute Distress - Head Exam Head Exam: NORMAL INSPECTION - Neck Exam Neck exam: absent: Lymphadenopathy Additional comments: trach collar - Respiratory Exam Respiratory Exam: Clear to PA & Lateral - Cardiovascular Exam Cardiovascular Exam: REGULAR RHYTHM - GI/Abdominal Exam GI & Abdominal Exam: Normal Bowel Sounds. absent: Organomegaly Additional comments: PEG in place - Extremities Exam Extremities exam: normal inspection, pedal pulses present - Neurological Exam Neurological exam: absent: Alert - Skin Skin Exam: Warm Assessment/Plan (1) Chest congestion Current Visit: Yes Status: Acute Comment: Repeat sputum culture (07/28) shows Pseudomonas aeruginosa sputum culture (07/18): Pseudomonas aeruginosa IV Cefepime 1gm q12h started 07/21 and completed on 07/26/15. Leukocytosis resolved and patient afebrile. Monitor vitals and CBC. (2) Thrombophlebitis of superficial veins of upper extremities Current Visit: Yes Status: Acute Comment: Venous doppler prelim report - thrombosis of right cephalic vein ( superficial) Shows Abnormality Lovenox 40mg SC daily Warm compresses to area 15 minutes, 3x a day f/u final venous doppler report (3) Edema of upper extremity Current Visit: Yes Status: Acute Comment: Venous doppler - thrombosis of right cephalic vein (superficial) Shows Abnormality see above plan (4) Anoxic encephalopathy Current Visit: Yes Status: Acute Comment: Spontaneous movements of mouth and limbs Unresponsive to painful and verbal stimuli Clinical status remains unchanged (5) Respiratory failure Current Visit: Yes Status: Acute Comment: Dr. Salgado, Pulmonology, on case. Help very much appreciated. Patient on trach (6) UTI (lower urinary tract infection) Current Visit: Yes Status: Acute Comment: Urine Cx (07/28): neg UA (07/28): shows no WBC or Leuk esterases Urine CX (07/18): Coag neg staph (positive for Pseudomonas in past) IV Cefepime 1gm q12h started 07/21 and completed 07/26. (7) Transaminitis Current Visit: Yes Status: Acute Comment: LFTs continue to be elevated and are increasing Hepatitis panel negative continue to monitor LFTs (8) Cardiac arrest Current Visit: Yes Status: Acute Comment: s/p V-Tach arrest Continue Plavix 75mg PO daily Continue ASA 325mg PO daily Continue Lisinopril 5mg PO daily (9) STEMI (ST elevation myocardial infarction) Current Visit: Yes Status: Acute Comment: Continue ASA 325mg PO daily Continue Lisinopril 5mg PO daily Continue Plavix 75mg pO daily Dr. Figueroa on case. Help appreciated. (10) Seizures Current Visit: Yes Status: Acute Comment: Dr. Garcia on case-help appreciated Continue Fosphenytoin 100mg IVP Q8 No seizure activity likley secondary to anoxic brain injury Monitor for seizure activity (11) Prophylactic measure Current Visit: Yes Status: Acute Comment: Pepcid 20 mg PO q12 SCD's Plavix Miralax Colace BID <Rashel Rodrigues - Last Filed: 08/01/15 22:22> Objective - Vital Signs/Intake and Output Vital Signs (last 24 hours): Vital Signs - 24 hr 08/01/15 08/01/15 08/01/15 05:55 12:22 14:59 Temperature 99 F 99 F Pulse Rate 86 86 84 Respiratory 20 20 Rate Blood Pressure 152/90 H 112/78 O2 Sat by Pulse 97 99 Oximetry 08/01/15 21:57 Temperature 98.4 F Pulse Rate 75 Respiratory 20 Rate Blood Pressure 100/69 O2 Sat by Pulse 100 Oximetry Intake and Output (last 12 hours): Intake & Output 08/01/15 08/01/15 08/02/15 06:59 18:59 06:59 Intake Total 820 1070 Output Total 750 425 Balance 70 645 Weight 103 lb Intake: Intake, IV Amount 50 Left Forearm 50 Tube Feeding 720 720 Other 100 300 Output: Urine 750 425 Urethral (Yoo) 750 425 Other: # Bowel Movements 1 - Medications Medications: Current Medications Aspirin (Aspirin) 325 mg PO DAILY [facility] Clopidogrel Bisulfate (Plavix) 75 mg PO DAILY [facility] Docusate Sodium (Colace Liquid) 100 mg PO DAILY [facility] Enoxaparin Sodium (Lovenox) 40 mg SC DAILY [facility] Last Admin: 08/01/15 09:28 Dose: 40 mg Fosphenytoin Sodium 100 mg/ (Sodium Chloride) 52 mls @ 100 mls/hr IV Q8H [facility] Last Admin: 08/01/15 20:00 Dose: 100 mls/hr Lisinopril (Zestril) 5 mg PO DAILY [facility] Polyethylene Glycol (Miralax) 17 gm PEG BID [facility] - Labs Labs (last 24 hours): Laboratory Results - last 24 hr 08/01/15 11:32 WBC 13.5 H RBC 3.63 L Hgb 11.1 L Hct 33.9 L MCV 93.3 MCH 30.6 MCHC 32.8 L RDW 14.9 H Plt Count 303 MPV 8.6 Neut % (Auto) 77.8 H Lymph % (Auto) 9.8 L [place] % (Auto) 8.0 Eos % (Auto) 4.2 H Baso % (Auto) 0.2 Neut # 10.5 H Lymph # 1.3 Carter # 1.1 H Eos # 0.6 Baso # 0.0 Neutrophils % (Manual) 64 Band Neutrophils % 11 H Lymphocytes % (Manual) 10 L Monocytes % (Manual) 9 Eosinophils % (Manual) 5 H Basophils % (Manual) 1 Platelet Estimate Normal RBC Morphology Normal Sodium 140 Potassium 3.9 Chloride 99 Carbon Dioxide 30 Anion Gap 15 BUN 18 Creatinine 0.5 L Est GFR ( Amer) > 60 Est GFR (Non-Af Amer) > 60 Random Glucose 127 H Calcium 8.7 Phosphorus 4.4 Magnesium 2.1 Total Bilirubin 0.4 AST 111 H D ALT 303 H Alkaline Phosphatase 169 H Total Protein 7.4 Albumin 3.3 L Globulin 4.1 H Albumin/Globulin Ratio 0.8 L Attending/Attestation - Attestation I have personally seen and examined this patient.: Yes I have fully participated in the care of the patient.: Yes I have reviewed all pertinent clinical information: Yes Notes (Text): 08/01/15 22:21 Patient seen and examined during round with residents pt is awake, eyes opening, non verbal Resident saw the pt was stretching his both UE Decubitus wd were given wd care accordingly vent mx as per ramandeep
[2015-08-02] MEDS: Fosphenytoin 100 MG in Sodium Chloride 0.9% 50 ML IV SCH ×3 (04:00→20:39)
[2015-08-02] MEDS: POLYETHYLENE GLYCOL 3350 17 GM/Dose PACKET PEG SCH ×2 (09:49→17:19)
[2015-08-02] MEDS: Enoxaparin 40 mg Syringe SC SCH (09:49)
--- NOTE | 2015-08-02 14:01 | CP.PCM.PN ---
<Yesenia Mayer - Last Filed: 08/02/15 19:41> Subjective - Subjective Subjective: Pt seen and examined at bedside. No acute events overnight per nurse. Pt has mobility that is not triggered by stimuli, but upon stimulation, pt is unresponsive. It was noticed that his eyes were in a state of constant motion periodically during the pt encounter. O2 concentration: 40% PEEP: 5 Respiratory Rate: 12 Tidal Volume: 450 Review of Systems - Review of Systems Review of Systems: Pt trached and unresponsive; cannot get ROS Objective - Vital Signs/Intake and Output Vital Signs (last 24 hours): Vital Signs - 24 hr 08/01/15 08/01/15 08/02/15 14:59 21:57 06:10 Temperature 99 F 98.4 F 98.6 F Pulse Rate 84 75 82 Respiratory 20 20 18 Rate Blood Pressure 112/78 100/69 99/63 L O2 Sat by Pulse 99 100 99 Oximetry 08/02/15 11:24 Temperature Pulse Rate 82 Respiratory Rate Blood Pressure O2 Sat by Pulse Oximetry Intake and Output (last 12 hours): Intake & Output 08/01/15 08/02/15 08/02/15 18:59 06:59 18:59 Intake Total 1070 Output Total 425 750 Balance 645 -750 Intake: Intake, IV Amount 50 Left Forearm 50 Tube Feeding 720 Other 300 Output: Urine 425 750 Urethral (Yoo) 425 750 Other: # Bowel Movements 1 - Medications Medications: Current Medications Aspirin (Aspirin) 325 mg PO DAILY [facility] Last Admin: 08/02/15 09:44 Dose: 325 mg Clopidogrel Bisulfate (Plavix) 75 mg PO DAILY [facility] Last Admin: 08/02/15 09:49 Dose: 75 mg Docusate Sodium (Colace Liquid) 100 mg PO DAILY [facility] Last Admin: 08/02/15 09:50 Dose: 100 mg Enoxaparin Sodium (Lovenox) 40 mg SC DAILY [facility] Last Admin: 08/02/15 09:49 Dose: 40 mg Fosphenytoin Sodium 100 mg/ (Sodium Chloride) 52 mls @ 100 mls/hr IV Q8H [facility] Last Admin: 08/02/15 04:00 Dose: 100 mls/hr Lisinopril (Zestril) 5 mg PO DAILY [facility] Last Admin: 08/02/15 09:44 Dose: 5 mg Polyethylene Glycol (Miralax) 17 gm PEG BID [facility] Last Admin: 08/02/15 09:49 Dose: 17 gm - Constitutional Appears: Chronically Ill - Head Exam Head Exam: ATRAUMATIC, NORMAL INSPECTION, NORMOCEPHALIC - Eye Exam Eye Exam: EOMI Pupil Exam: PERRL - Respiratory Exam Respiratory Exam: Clear to PA & Lateral, NORMAL BREATHING PATTERN Additional comments: pt on mechanical ventilation - Cardiovascular Exam Cardiovascular Exam: Tachycardia, +S1, +S2 - GI/Abdominal Exam GI & Abdominal Exam: Normal Bowel Sounds, Soft. absent: Distended - Extremities Exam Extremities exam: absent: pedal edema - Neurological Exam Neurological exam: absent: Alert, Oriented x3 - Skin Skin Exam: Dry, Intact, Normal Color Assessment/Plan (1) Chest congestion Current Visit: No (2) Thrombophlebitis of superficial veins of upper extremities Current Visit: No (3) Edema of upper extremity Current Visit: No (4) Anoxic encephalopathy Current Visit: No (5) Respiratory failure Current Visit: No (6) UTI (lower urinary tract infection) Current Visit: No (7) Transaminitis Current Visit: No (8) Cardiac arrest Current Visit: No (9) STEMI (ST elevation myocardial infarction) Current Visit: No (10) Seizures Current Visit: No (11) Prophylactic measure Current Visit: No <Rashel Rodrigues - Last Filed: 08/02/15 23:40> Objective - Vital Signs/Intake and Output Vital Signs (last 24 hours): Vital Signs - 24 hr 08/02/15 08/02/15 08/02/15 06:10 11:24 14:00 Temperature 98.6 F 98 F Pulse Rate 82 82 85 Respiratory 18 20 Rate Blood Pressure 99/63 L 106/70 O2 Sat by Pulse 99 100 Oximetry 08/02/15 22:28 Temperature 98.7 F Pulse Rate 73 Respiratory 20 Rate Blood Pressure 128/77 O2 Sat by Pulse 100 Oximetry Intake and Output (last 12 hours): Intake & Output 08/02/15 08/02/15 08/03/15 06:59 18:59 06:59 Intake Total 1070 Output Total 750 525 300 Balance -750 545 -300 Intake: Intake, IV Amount 50 Left Forearm 50 Tube Feeding 720 Other 300 Output: Urine 750 525 300 Urethral (Yoo) 750 525 300 Other: # Bowel Movements 1 - Medications Medications: Current Medications Aspirin (Aspirin) 325 mg PO DAILY [facility] Last Admin: 08/02/15 09:44 Dose: 325 mg Clopidogrel Bisulfate (Plavix) 75 mg PO DAILY [facility] Last Admin: 08/02/15 09:49 Dose: 75 mg Docusate Sodium (Colace Liquid) 100 mg PO DAILY [facility] Last Admin: 08/02/15 09:50 Dose: 100 mg Enoxaparin Sodium (Lovenox) 40 mg SC DAILY [facility] Last Admin: 08/02/15 09:49 Dose: 40 mg Fosphenytoin Sodium 100 mg/ (Sodium Chloride) 52 mls @ 100 mls/hr IV Q8H [facility] Last Admin: 08/02/15 20:39 Dose: 100 mls/hr Lisinopril (Zestril) 5 mg PO DAILY [facility] Last Admin: 08/02/15 09:44 Dose: 5 mg Polyethylene Glycol (Miralax) 17 gm PEG BID [facility] Last Admin: 08/02/15 17:19 Dose: 17 gm Attending/Attestation - Attestation I have personally seen and examined this patient.: Yes I have fully participated in the care of the patient.: Yes I have reviewed all pertinent clinical information: Yes
[2015-08-03] MEDS: Fosphenytoin 100 MG in Sodium Chloride 0.9% 50 ML IV SCH ×3 (04:33→20:06)
[2015-08-03 07:39] LABS: BASO # 0.1 K/uL (0.0-0.2); BASO % 0.5 % (0.0-2.0); EOS # 0.5 K/uL (0.0-0.7); EOS % 5.1 % (0.0-4.0); LYMPH # 1.1 K/uL (1.0-4.3); LYMPH % 11.3 % (20.0-40.0); MEAN CELL VOLUME 93.6 fL (80.0-94.0); MEAN CORPUSCULAR HEMOGLOBIN 31.2 pg (27.0-31.0); MEAN CORPUSCULAR HGB CONC 33.4 g/dL (33.0-37.0); MEAN PLATELET VOLUME 8.6 fL (7.2-11.7); MONO # 0.8 K/uL (0.0-0.8); MONO % 8.4 % (0.0-10.0); NEUT # 7.5 K/uL (1.8-7.0); NEUT % 74.7 % (50.0-75.0); RBC 3.53 Mil/uL (4.40-5.90); RED CELL DISTRIBUTION WIDTH 15.3 % (11.5-14.5)
[2015-08-03 07:52] LABS: ALBUMIN 3.3 g/dL (3.5-5.0)
[2015-08-03 07:54] LABS: GFR NON-AFRICAN AMERICAN > 60
[2015-08-03 07:55] LABS: ALB/GLOB RATIO 0.8 (1.0-2.1); ALT/SGPT 252 U/L (21-72); AST/SGOT 97 U/L (17-59); BLOOD UREA NITROGEN 17 mg/dL (9-20)
[2015-08-03 07:56] LABS: CALCIUM 8.6 mg/dL (8.4-10.2)
--- NOTE | 2015-08-03 09:08 | CP.PCM.PN ---
<LilliamconsuelonafisaYesenia - Last Filed: 08/03/15 13:38> Subjective - Subjective Subjective: Pt seen and examined. Pt blinked once upon being tapped on the shoulder and also appeared to turn his gaze towards me. Pt continues to make movements that are not incited by stimuli. Pt turned his eyes left and right periodically during the encounter. Pt still does not respond to further stimuli. O2 concentration: 40% PEEP: 5 Respiratory Rate: 12 Tidal Volume: 450 Review of Systems - Review of Systems Review of Systems: Pt trached and unresponsive. Unable to get ROS Objective - Vital Signs/Intake and Output Vital Signs (last 24 hours): Vital Signs - 24 hr 08/02/15 08/02/15 08/02/15 11:24 14:00 22:28 Temperature 98 F 98.7 F Pulse Rate 82 85 73 Respiratory 20 20 Rate Blood Pressure 106/70 128/77 O2 Sat by Pulse 100 100 Oximetry 08/03/15 06:00 Temperature 98.7 F Pulse Rate 86 Respiratory 20 Rate Blood Pressure 122/74 O2 Sat by Pulse 100 Oximetry Intake and Output (last 12 hours): Intake & Output 08/02/15 08/03/15 08/03/15 18:59 06:59 18:59 Intake Total 1070 920 Output Total 525 1100 Balance 545 -180 Weight 106 lb 12.8 oz Intake: Intake, IV Amount 50 200 Left Forearm 50 200 Tube Feeding 720 720 Other 300 Output: Urine 525 1100 Urethral (Yoo) 525 1100 Other: # Bowel Movements 1 2 - Medications Medications: Current Medications Aspirin (Aspirin) 325 mg PO DAILY [facility] Last Admin: 08/02/15 09:44 Dose: 325 mg Clopidogrel Bisulfate (Plavix) 75 mg PO DAILY [facility] Last Admin: 08/02/15 09:49 Dose: 75 mg Docusate Sodium (Colace Liquid) 100 mg PO DAILY [facility] Last Admin: 08/02/15 09:50 Dose: 100 mg Enoxaparin Sodium (Lovenox) 40 mg SC DAILY [facility] Last Admin: 08/02/15 09:49 Dose: 40 mg Fosphenytoin Sodium 100 mg/ (Sodium Chloride) 52 mls @ 100 mls/hr IV Q8H [facility] Last Admin: 08/03/15 04:33 Dose: 100 mls/hr Lisinopril (Zestril) 5 mg PO DAILY [facility] Last Admin: 08/02/15 09:44 Dose: 5 mg Polyethylene Glycol (Miralax) 17 gm PEG BID [facility] Last Admin: 08/02/15 17:19 Dose: 17 gm - Labs Labs (last 24 hours): Laboratory Results - last 24 hr 08/03/15 07:08 WBC 10.0 RBC 3.53 L Hgb 11.0 L Hct 33.1 L MCV 93.6 MCH 31.2 H MCHC 33.4 RDW 15.3 H Plt Count 299 MPV 8.6 Neut % (Auto) 74.7 Lymph % (Auto) 11.3 L [place] % (Auto) 8.4 Eos % (Auto) 5.1 H Baso % (Auto) 0.5 Neut # 7.5 H Lymph # 1.1 [place] # 0.8 Eos # 0.5 Baso # 0.1 Sodium 143 Potassium 4.4 Chloride 101 Carbon Dioxide 32 H Anion Gap 14 BUN 17 Creatinine 0.5 L Est GFR ( Amer) > 60 Est GFR (Non-Af Amer) > 60 Random Glucose 138 H Calcium 8.6 Phosphorus 4.5 Magnesium 2.1 Total Bilirubin 0.4 AST 97 H ALT 252 H Alkaline Phosphatase 161 H Total Protein 7.5 Albumin 3.3 L Globulin 4.2 H Albumin/Globulin Ratio 0.8 L - Constitutional Appears: Chronically Ill - Head Exam Head Exam: ATRAUMATIC, NORMAL INSPECTION, NORMOCEPHALIC - Respiratory Exam Respiratory Exam: Clear to PA & Lateral, NORMAL BREATHING PATTERN Additional comments: Pt on mechanical ventilator - Cardiovascular Exam Cardiovascular Exam: Tachycardia, +S1, +S2 - GI/Abdominal Exam GI & Abdominal Exam: Normal Bowel Sounds, Soft. absent: Distended - Extremities Exam Extremities exam: pedal pulses present. absent: pedal edema - Neurological Exam Neurological exam: absent: Alert, Oriented x3 - Skin Skin Exam: Dry, Normal Color Assessment/Plan (1) Chest congestion Current Visit: No (2) Thrombophlebitis of superficial veins of upper extremities Current Visit: No (3) Edema of upper extremity Current Visit: No (4) Anoxic encephalopathy Current Visit: No (5) Respiratory failure Current Visit: No (6) UTI (lower urinary tract infection) Current Visit: No (7) Transaminitis Current Visit: No (8) Cardiac arrest Current Visit: No (9) STEMI (ST elevation myocardial infarction) Current Visit: No (10) Seizures Current Visit: No (11) Prophylactic measure Current Visit: No <Rashel Rodrigues - Last Filed: 08/03/15 18:10> Objective - Vital Signs/Intake and Output Vital Signs (last 24 hours): Vital Signs - 24 hr 08/02/15 08/03/15 08/03/15 22:28 06:00 09:03 Temperature 98.7 F 98.7 F Pulse Rate 73 86 86 Respiratory 20 20 Rate Blood Pressure 128/77 122/74 O2 Sat by Pulse 100 100 Oximetry 08/03/15 14:17 Temperature 97.6 F Pulse Rate 100 H Respiratory 20 Rate Blood Pressure 98/64 L O2 Sat by Pulse 100 Oximetry Intake and Output (last 12 hours): Intake & Output 08/02/15 08/03/15 08/03/15 18:59 06:59 18:59 Intake Total 1070 920 770 Output Total 525 1100 600 Balance 545 -180 170 Weight 106 lb 12.8 oz Intake: Intake, IV Amount 50 200 50 Left Forearm 50 200 50 Tube Feeding 720 720 720 Other 300 Output: Urine 525 1100 600 Urethral (Yoo) 525 1100 600 Other: # Bowel Movements 1 2 - Medications Medications: Current Medications Aspirin (Aspirin) 325 mg PO DAILY [facility] Last Admin: 08/03/15 10:35 Dose: 325 mg Clopidogrel Bisulfate (Plavix) 75 mg PO DAILY [facility] Last Admin: 08/03/15 10:35 Dose: 75 mg Docusate Sodium (Colace Liquid) 100 mg PO DAILY [facility] Last Admin: 08/03/15 10:34 Dose: 100 mg Fosphenytoin Sodium 100 mg/ (Sodium Chloride) 52 mls @ 100 mls/hr IV Q8H [facility] Last Admin: 08/03/15 12:00 Dose: 100 mls/hr Lisinopril (Zestril) 5 mg PO DAILY [facility] Last Admin: 08/03/15 10:35 Dose: 5 mg Polyethylene Glycol (Miralax) 17 gm PEG BID [facility] Last Admin: 08/03/15 17:15 Dose: 17 gm - Labs Labs (last 24 hours): Laboratory Results - last 24 hr 08/03/15 07:08 WBC 10.0 RBC 3.53 L Hgb 11.0 L Hct 33.1 L MCV 93.6 MCH 31.2 H MCHC 33.4 RDW 15.3 H Plt Count 299 MPV 8.6 Neut % (Auto) 74.7 Lymph % (Auto) 11.3 L [place] % (Auto) 8.4 Eos % (Auto) 5.1 H Baso % (Auto) 0.5 Neut # 7.5 H Lymph # 1.1 [place] # 0.8 Eos # 0.5 Baso # 0.1 Sodium 143 Potassium 4.4 Chloride 101 Carbon Dioxide 32 H Anion Gap 14 BUN 17 Creatinine 0.5 L Est GFR ( Amer) > 60 Est GFR (Non-Af Amer) > 60 Random Glucose 138 H Calcium 8.6 Phosphorus 4.5 Magnesium 2.1 Total Bilirubin 0.4 AST 97 H ALT 252 H Alkaline Phosphatase 161 H Total Protein 7.5 Albumin 3.3 L Globulin 4.2 H Albumin/Globulin Ratio 0.8 L Attending/Attestation - Attestation I have personally seen and examined this patient.: Yes I have fully participated in the care of the patient.: Yes I have reviewed all pertinent clinical information: Yes Notes (Text): 08/03/15 18:06 patient seen and examined during round with residents pt has no new events, stage 1 Decubitu ulcer on gluteal area, but Left hip area wound is healed pt was moving his own UE two occasion witnessed by resident and student. But I personally not witnessed pt has eye movement, following, cont vent mx, pt is breathing over the mechine
[2015-08-03] MEDS: Enoxaparin 40 mg Syringe SC SCH (10:34)
[2015-08-03] MEDS: POLYETHYLENE GLYCOL 3350 17 GM/Dose PACKET PEG SCH ×2 (10:34→17:15)
--- NOTE | 2015-08-04 00:43 | CP.PCM.PN ---
<Sadnra Mercedes - Last Filed: 08/04/15 00:38> Subjective - Subjective Subjective: Pt seen and examined. Pt is vented and not responsive to verbal stimuli; however , responsive to painful stimuli. Pt is able to have voluntary movements after being aroused. Pt's pupils are equal and reactive to light, pt's corneal and gag reflexes are intact. Unable to obtain to ROS. Review of Systems - Review of Systems Systems not reviewed;Unavailable: Altered Mental Status Objective - Vital Signs/Intake and Output Vital Signs (last 24 hours): Vital Signs - 24 hr 08/03/15 08/03/15 08/03/15 06:00 09:03 14:17 Temperature 98.7 F 97.6 F Pulse Rate 86 86 100 H Respiratory 20 20 Rate Blood Pressure 122/74 98/64 L O2 Sat by Pulse 100 100 Oximetry 08/03/15 22:11 Temperature 97.8 F Pulse Rate 76 Respiratory 20 Rate Blood Pressure 106/69 O2 Sat by Pulse 100 Oximetry Intake and Output (last 12 hours): Intake & Output 08/03/15 08/03/15 08/04/15 06:59 18:59 06:59 Intake Total 920 770 Output Total 1100 600 300 Balance -180 170 -300 Weight 106 lb 12.8 oz Intake: Intake, IV Amount 200 50 Left Forearm 200 50 Tube Feeding 720 720 Output: Urine 1100 600 300 Urethral (Yoo) 1100 600 300 Other: # Bowel Movements 2 - Medications Medications: Current Medications Aspirin (Aspirin) 325 mg PO DAILY [facility] Last Admin: 08/03/15 10:35 Dose: 325 mg Clopidogrel Bisulfate (Plavix) 75 mg PO DAILY [facility] Last Admin: 08/03/15 10:35 Dose: 75 mg Docusate Sodium (Colace Liquid) 100 mg PO DAILY [facility] Last Admin: 08/03/15 10:34 Dose: 100 mg Fosphenytoin Sodium 100 mg/ (Sodium Chloride) 52 mls @ 100 mls/hr IV Q8H [facility] Last Admin: 08/03/15 20:06 Dose: 100 mls/hr Lisinopril (Zestril) 5 mg PO DAILY [facility] Last Admin: 08/03/15 10:35 Dose: 5 mg Polyethylene Glycol (Miralax) 17 gm PEG BID [facility] Last Admin: 08/03/15 17:15 Dose: 17 gm - Labs Labs (last 24 hours): Laboratory Results - last 24 hr 08/03/15 07:08 WBC 10.0 RBC 3.53 L Hgb 11.0 L Hct 33.1 L MCV 93.6 MCH 31.2 H MCHC 33.4 RDW 15.3 H Plt Count 299 MPV 8.6 Neut % (Auto) 74.7 Lymph % (Auto) 11.3 L [place] % (Auto) 8.4 Eos % (Auto) 5.1 H Baso % (Auto) 0.5 Neut # 7.5 H Lymph # 1.1 [place] # 0.8 Eos # 0.5 Baso # 0.1 Sodium 143 Potassium 4.4 Chloride 101 Carbon Dioxide 32 H Anion Gap 14 BUN 17 Creatinine 0.5 L Est GFR ( Amer) > 60 Est GFR (Non-Af Amer) > 60 Random Glucose 138 H Calcium 8.6 Phosphorus 4.5 Magnesium 2.1 Total Bilirubin 0.4 AST 97 H ALT 252 H Alkaline Phosphatase 161 H Total Protein 7.5 Albumin 3.3 L Globulin 4.2 H Albumin/Globulin Ratio 0.8 L - Constitutional Appears: Non-toxic, No Acute Distress, Chronically Ill - Head Exam Head Exam: ATRAUMATIC, NORMAL INSPECTION, NORMOCEPHALIC - Eye Exam Eye Exam: Normal appearance, PERRL Pupil Exam: PERRL - Respiratory Exam Respiratory Exam: Clear to PA & Lateral, NORMAL BREATHING PATTERN Additional comments: pt is on a vent - Cardiovascular Exam Cardiovascular Exam: REGULAR RHYTHM, +S1, +S2 - GI/Abdominal Exam GI & Abdominal Exam: Normal Bowel Sounds, Soft - Extremities Exam Extremities exam: pedal pulses present - Skin Skin Exam: Dry Assessment/Plan (1) Anoxic encephalopathy Current Visit: Yes Status: Acute Comment: Spontaneous movements of mouth, limbs, and eyes Unresponsive to verbal stimuli Clinical status remains unchanged (2) UTI (lower urinary tract infection) Current Visit: Yes Status: Acute Comment: Urine Cx (07/28): neg UA (07/28): shows no WBC or Leuk esterases Urine CX (07/18): Coag neg staph (positive for Pseudomonas in past) IV Cefepime 1gm q12h started 07/21 and completed 07/26. (3) Chest congestion Current Visit: Yes Status: Acute Comment: Repeat sputum culture (07/28) shows Pseudomonas aeruginosa sputum culture (07/18): Pseudomonas aeruginosa IV Cefepime 1gm q12h started 07/21 and completed on 07/26/15. Leukocytosis resolved and patient afebrile. Monitor vitals and CBC. (4) Transaminitis Current Visit: Yes Status: Acute Comment: LFTs continue to be elevated but are trending back down Hepatitis panel negative continue to monitor LFTs (5) Thrombophlebitis of superficial veins of upper extremities Current Visit: Yes Status: Acute Comment: Venous doppler (07/19) prelim report - thrombosis of right cephalic vein (superficial) Shows Abnormality Lovenox 40mg SC daily Warm compresses to area 15 minutes, 3x a day f/u final venous doppler report (6) Edema of upper extremity Current Visit: Yes Status: Acute Comment: Venous doppler (07/19) - thrombosis of right cephalic vein (superficial ) Shows Abnormality see above plan (7) Respiratory failure Current Visit: Yes Status: Acute Comment: Dr. Salgado, Pulmonology, on case. Help very much appreciated. Patient on trach (8) STEMI (ST elevation myocardial infarction) Current Visit: Yes Status: Acute Comment: Continue ASA 325mg PO daily Continue Lisinopril 5mg PO daily Continue Plavix 75mg pO daily Dr. Figueroa on case. Help appreciated. (9) Seizures Current Visit: Yes Status: Acute Comment: Dr. Garcia on case-help appreciated Continue Fosphenytoin 100mg IVP Q8 No seizure activity likley secondary to anoxic brain injury Monitor for seizure activity (10) Prophylactic measure Current Visit: Yes Status: Acute Comment: Pepcid 20 mg PO q12 SCD's Plavix Miralax Colace BID <Rashel Rodrigues - Last Filed: 08/04/15 16:28> Objective - Vital Signs/Intake and Output Vital Signs (last 24 hours): Vital Signs - 24 hr 08/03/15 08/04/15 08/04/15 22:11 05:54 13:26 Temperature 97.8 F 97.2 F L 97.0 F L Pulse Rate 76 83 87 Respiratory 20 20 20 Rate Blood Pressure 106/69 102/68 111/79 O2 Sat by Pulse 100 100 100 Oximetry Intake and Output (last 12 hours): Intake & Output 08/03/15 08/04/15 08/04/15 18:59 06:59 18:59 Intake Total 770 820 Output Total 600 800 800 Balance 170 20 -800 Intake: Intake, IV Amount 50 100 Left Forearm 50 100 Tube Feeding 720 720 Output: Urine 600 800 800 Urethral (Yoo) 600 800 800 - Medications Medications: Current Medications Aspirin (Aspirin) 325 mg PO DAILY [facility] Last Admin: 08/04/15 09:31 Dose: 325 mg Clopidogrel Bisulfate (Plavix) 75 mg PO DAILY [facility] Last Admin: 08/04/15 09:31 Dose: 75 mg Docusate Sodium (Colace Liquid) 100 mg PO DAILY [facility] Last Admin: 08/04/15 09:31 Dose: 100 mg Fosphenytoin Sodium 100 mg/ (Sodium Chloride) 52 mls @ 100 mls/hr IV Q8H [facility] Last Admin: 08/04/15 13:22 Dose: 100 mls/hr Lisinopril (Zestril) 5 mg PO DAILY [facility] Last Admin: 08/04/15 09:31 Dose: 5 mg Polyethylene Glycol (Miralax) 17 gm PEG BID [facility] Last Admin: 08/04/15 09:31 Dose: 17 gm Attending/Attestation - Attestation I have personally seen and examined this patient.: Yes I have fully participated in the care of the patient.: Yes I have reviewed all pertinent clinical information: Yes
[2015-08-04] MEDS: Fosphenytoin 100 MG in Sodium Chloride 0.9% 50 ML IV SCH ×3 (04:46→21:22)
[2015-08-04] MEDS: POLYETHYLENE GLYCOL 3350 17 GM/Dose PACKET PEG SCH ×2 (09:31→18:00)
--- NOTE | 2015-08-05 02:31 | CP.PCM.PN ---
<Yesenia Mayer - Last Filed: 08/05/15 04:10> Subjective - Subjective Subjective: Pt seen and examined at bedside. Pt is trached and unable to respond to stimuli. Unable to obtain ROS. O2 concentration: 40% PEEP: 5 Respiratory Rate: 12 Tidal Volume: 450 Review of Systems - Review of Systems Systems not reviewed;Unavailable: Intubated Review of Systems: Patient trached, non responsive and unable to provide ROS. Objective - Vital Signs/Intake and Output Vital Signs (last 24 hours): Vital Signs - 24 hr 08/04/15 08/04/15 08/04/15 05:54 13:26 21:00 Temperature 97.2 F L 97.0 F L 97.3 F L Pulse Rate 83 87 87 Respiratory 20 20 20 Rate Blood Pressure 102/68 111/79 157/93 H O2 Sat by Pulse 100 100 100 Oximetry Intake and Output (last 12 hours): Intake & Output 08/04/15 08/04/15 08/05/15 06:59 18:59 06:59 Intake Total 820 Output Total 800 800 300 Balance 20 -800 -300 Intake: Intake, IV Amount 100 Left Forearm 100 Tube Feeding 720 Output: Urine 800 800 300 Urethral (Yoo) 800 800 300 - Medications Medications: Current Medications Aspirin (Aspirin) 325 mg PO DAILY [facility] Last Admin: 08/04/15 09:31 Dose: 325 mg Clopidogrel Bisulfate (Plavix) 75 mg PO DAILY [facility] Last Admin: 08/04/15 09:31 Dose: 75 mg Docusate Sodium (Colace Liquid) 100 mg PO DAILY [facility] Last Admin: 08/04/15 09:31 Dose: 100 mg Fosphenytoin Sodium 100 mg/ (Sodium Chloride) 52 mls @ 100 mls/hr IV Q8H [facility] Last Admin: 08/04/15 21:22 Dose: 100 mls/hr Lisinopril (Zestril) 5 mg PO DAILY [facility] Last Admin: 08/04/15 09:31 Dose: 5 mg Polyethylene Glycol (Miralax) 17 gm PEG BID [facility] Last Admin: 08/04/15 18:00 Dose: 17 gm - Constitutional Appears: No Acute Distress - Head Exam Head Exam: NORMAL INSPECTION - Eye Exam Pupil Exam: PERRL - ENT Exam ENT Exam: Mucous Membranes Moist - Neck Exam Neck exam: absent: Lymphadenopathy, Thyromegaly - Respiratory Exam Respiratory Exam: Clear to PA & Lateral - Cardiovascular Exam Cardiovascular Exam: REGULAR RHYTHM, +S1, +S2 - GI/Abdominal Exam GI & Abdominal Exam: Normal Bowel Sounds. absent: Organomegaly - Extremities Exam Extremities exam: pedal pulses present. absent: pedal edema - Neurological Exam Neurological exam: absent: Oriented x3 - Skin Skin Exam: Warm Assessment/Plan (1) Chest congestion Current Visit: No (2) Thrombophlebitis of superficial veins of upper extremities Current Visit: No (3) Edema of upper extremity Current Visit: No (4) Anoxic encephalopathy Current Visit: No (5) Respiratory failure Current Visit: No (6) UTI (lower urinary tract infection) Current Visit: No (7) Transaminitis Current Visit: No (8) Cardiac arrest Current Visit: No (9) STEMI (ST elevation myocardial infarction) Current Visit: No (10) Seizures Current Visit: No (11) Prophylactic measure Current Visit: No <Rashel Rodrigues - Last Filed: 08/05/15 14:50> Objective - Vital Signs/Intake and Output Vital Signs (last 24 hours): Vital Signs - 24 hr 08/04/15 08/05/15 08/05/15 21:00 05:56 14:00 Temperature 97.3 F L 97.9 F 98.3 F Pulse Rate 87 77 75 Respiratory 20 20 20 Rate Blood Pressure 157/93 H 127/78 100/70 O2 Sat by Pulse 100 100 100 Oximetry Intake and Output (last 12 hours): Intake & Output 08/04/15 08/05/15 08/05/15 18:59 06:59 18:59 Output Total 800 800 550 Balance -800 -800 -550 Weight 105 lb Output: Urine 800 800 550 Urethral (Yoo) 800 800 550 Other: # Bowel Movements 1 - Medications Medications: Current Medications Aspirin (Aspirin) 325 mg PO DAILY [facility] Last Admin: 08/05/15 10:32 Dose: 325 mg Clopidogrel Bisulfate (Plavix) 75 mg PO DAILY [facility] Last Admin: 08/05/15 10:32 Dose: 75 mg Docusate Sodium (Colace Liquid) 100 mg PO DAILY [facility] Last Admin: 08/05/15 10:32 Dose: 100 mg Fosphenytoin Sodium 100 mg/ (Sodium Chloride) 52 mls @ 100 mls/hr IV Q8H [facility] Last Admin: 08/05/15 11:46 Dose: 100 mls/hr Lisinopril (Zestril) 5 mg PO DAILY [facility] Last Admin: 08/05/15 10:32 Dose: 5 mg Polyethylene Glycol (Miralax) 17 gm PEG BID [facility] Last Admin: 08/05/15 10:31 Dose: 17 gm - Labs Labs (last 24 hours): Laboratory Results - last 24 hr 08/05/15 08:44 WBC 9.8 RBC 3.60 L Hgb 11.2 L Hct 33.9 L MCV 94.2 H MCH 31.1 H MCHC 33.0 RDW 15.1 H Plt Count 288 MPV 8.3 Neut % (Auto) 71.8 Lymph % (Auto) 12.7 L [place] % (Auto) 8.9 Eos % (Auto) 6.2 H Baso % (Auto) 0.4 Neut # 7.1 H Lymph # 1.2 [place] # 0.9 H Eos # 0.6 Baso # 0.0 Sodium 142 Potassium 4.6 Chloride 99 Carbon Dioxide 33 H Anion Gap 15 BUN 19 Creatinine 0.5 L Est GFR ( Amer) > 60 Est GFR (Non-Af Amer) > 60 Random Glucose 121 H Calcium 8.6 Phosphorus 4.7 H Magnesium 2.2 Total Bilirubin 0.4 AST 83 H ALT 197 H D Alkaline Phosphatase 155 H Total Protein 7.5 Albumin 3.3 L Globulin 4.2 H Albumin/Globulin Ratio 0.8 L Attending/Attestation - Attestation I have personally seen and examined this patient.: Yes I have fully participated in the care of the patient.: Yes I have reviewed all pertinent clinical information: Yes Notes (Text): 08/05/15 14:50 Patient seen and examined during round with resident. pt has no new events non verbal cont supportive mx DC planning--- pending
[2015-08-05] MEDS: Fosphenytoin 100 MG in Sodium Chloride 0.9% 50 ML IV SCH ×3 (04:59→20:15)
[2015-08-05 08:53] LABS: BASO % 0.4 % (0.0-2.0); EOS # 0.6 K/uL (0.0-0.7); EOS % 6.2 % (0.0-4.0); HEMOGLOBIN 11.2 g/dL (12.0-18.0); LYMPH # 1.2 K/uL (1.0-4.3); LYMPH % 12.7 % (20.0-40.0); MEAN CELL VOLUME 94.2 fL (80.0-94.0); MEAN CORPUSCULAR HEMOGLOBIN 31.1 pg (27.0-31.0); MEAN PLATELET VOLUME 8.3 fL (7.2-11.7); MONO # 0.9 K/uL (0.0-0.8); MONO % 8.9 % (0.0-10.0); NEUT # 7.1 K/uL (1.8-7.0); NEUT % 71.8 % (50.0-75.0); RBC 3.6 Mil/uL (4.40-5.90); RED CELL DISTRIBUTION WIDTH 15.1 % (11.5-14.5); WHITE BLOOD COUNT 9.8 K/uL (4.8-10.8)
[2015-08-05 09:41] LABS: ALBUMIN 3.3 g/dL (3.5-5.0)
[2015-08-05 09:44] LABS: ALB/GLOB RATIO 0.8 (1.0-2.1); ALT/SGPT 197 U/L (21-72); AST/SGOT 83 U/L (17-59); BLOOD UREA NITROGEN 19 mg/dL (9-20); GFR NON-AFRICAN AMERICAN > 60
[2015-08-05 09:45] LABS: CALCIUM 8.6 mg/dL (8.4-10.2)
[2015-08-05] MEDS: POLYETHYLENE GLYCOL 3350 17 GM/Dose PACKET PEG SCH ×2 (10:31→17:27)
[2015-08-06] MEDS: Fosphenytoin 100 MG in Sodium Chloride 0.9% 50 ML IV SCH ×3 (04:35→20:30)
[2015-08-06] MEDS: POLYETHYLENE GLYCOL 3350 17 GM/Dose PACKET PEG SCH ×2 (09:20→17:53)
--- NOTE | 2015-08-06 18:05 | CP.PCM.PN ---
<Rashel Rodrigues - Last Filed: 08/06/15 18:26> Objective - Vital Signs/Intake and Output Vital Signs (last 24 hours): Vital Signs - 24 hr 08/05/15 08/05/15 08/06/15 20:00 21:00 05:48 Temperature 97.0 F L 98.8 F Pulse Rate 82 82 88 Respiratory 18 16 Rate Blood Pressure 113/71 113/68 O2 Sat by Pulse 95 99 Oximetry 08/06/15 14:20 Temperature 97.7 F Pulse Rate 76 Respiratory 20 Rate Blood Pressure 97/62 L O2 Sat by Pulse 100 Oximetry Intake and Output (last 12 hours): Intake & Output 08/05/15 08/06/15 08/06/15 18:59 06:59 18:59 Intake Total 1020 Output Total 550 700 Balance -550 320 Weight 103 lb Intake: Intake, IV Amount 100 Right Wrist 100 Tube Feeding 720 Other 200 Output: Urine 550 700 Urethral (Yoo) 550 700 Other: # Bowel Movements 1 1 - Medications Medications: Current Medications Aspirin (Aspirin) 325 mg PO DAILY [facility] Last Admin: 08/06/15 09:20 Dose: 325 mg Clopidogrel Bisulfate (Plavix) 75 mg PO DAILY [facility] Last Admin: 08/06/15 09:20 Dose: 75 mg Docusate Sodium (Colace Liquid) 100 mg PO DAILY [facility] Last Admin: 08/06/15 09:20 Dose: 100 mg Fosphenytoin Sodium 100 mg/ (Sodium Chloride) 52 mls @ 100 mls/hr IV Q8H [facility] Last Admin: 08/06/15 13:00 Dose: 100 mls/hr Lisinopril (Zestril) 5 mg PO DAILY [facility] Last Admin: 08/06/15 09:20 Dose: 5 mg Polyethylene Glycol (Miralax) 17 gm PEG BID [facility] Last Admin: 08/06/15 17:53 Dose: 17 gm Attending/Attestation - Attestation I have personally seen and examined this patient.: Yes I have fully participated in the care of the patient.: Yes I have reviewed all pertinent clinical information: Yes Notes (Text): 08/06/15 18:26 Patient seen and examined during round with resident pt has some spontaneoues movement of both LE which appers pt was trying to put both LE together and flex his both knees and moving his both feet ( this was a new finding and approx 3 episodes... Not cosistent with SZ) pt is still on vent and vent weaning as per Pulm pt was awake and eye movements noted <Lauri Araya - Last Filed: 08/06/15 18:53> Subjective - Subjective Subjective: Pt was seen and examined at bedside Due to altered mental state, patient is unable to give ROS Pt showed signs of movement, particularly in lower extremity, moving both his feet, occasionally flexing his knees. Pt also moved in upper extremities in a stretching motion. No events overnight, per nursing. Review of Systems - Review of Systems Systems not reviewed;Unavailable: Altered Mental Status Objective - Vital Signs/Intake and Output Vital Signs (last 24 hours): Vital Signs - 24 hr 08/05/15 08/05/15 08/06/15 20:00 21:00 05:48 Temperature 97.0 F L 98.8 F Pulse Rate 82 82 88 Respiratory 18 16 Rate Blood Pressure 113/71 113/68 O2 Sat by Pulse 95 99 Oximetry 08/06/15 14:20 Temperature 97.7 F Pulse Rate 76 Respiratory 20 Rate Blood Pressure 97/62 L O2 Sat by Pulse 100 Oximetry Intake and Output (last 12 hours): Intake & Output 08/05/15 08/06/15 08/06/15 18:59 06:59 18:59 Intake Total 1020 Output Total 550 700 Balance -550 320 Weight 103 lb Intake: Intake, IV Amount 100 Right Wrist 100 Tube Feeding 720 Other 200 Output: Urine 550 700 Urethral (Yoo) 550 700 Other: # Bowel Movements 1 1 - Medications Medications: Current Medications Aspirin (Aspirin) 325 mg PO DAILY [facility] Last Admin: 08/06/15 09:20 Dose: 325 mg Clopidogrel Bisulfate (Plavix) 75 mg PO DAILY [facility] Last Admin: 08/06/15 09:20 Dose: 75 mg Docusate Sodium (Colace Liquid) 100 mg PO DAILY [facility] Last Admin: 08/06/15 09:20 Dose: 100 mg Fosphenytoin Sodium 100 mg/ (Sodium Chloride) 52 mls @ 100 mls/hr IV Q8H [facility] Last Admin: 08/06/15 13:00 Dose: 100 mls/hr Lisinopril (Zestril) 5 mg PO DAILY [facility] Last Admin: 08/06/15 09:20 Dose: 5 mg Polyethylene Glycol (Miralax) 17 gm PEG BID [facility] Last Admin: 08/06/15 17:53 Dose: 17 gm - Constitutional Appears: No Acute Distress, Chronically Ill - Head Exam Head Exam: NORMAL INSPECTION, NORMOCEPHALIC - Eye Exam Pupil Exam: NORMAL ACCOMODATION, PERRL - ENT Exam ENT Exam: Mucous Membranes Moist Additional comments: trach in place - Respiratory Exam Respiratory Exam: NORMAL BREATHING PATTERN - Cardiovascular Exam Cardiovascular Exam: REGULAR RHYTHM, +S1, +S2 - GI/Abdominal Exam GI & Abdominal Exam: Normal Bowel Sounds, Soft, Unremarkable. absent: Tenderness - Extremities Exam Extremities exam: normal capillary refill, pedal pulses present - Neurological Exam Neurological exam: Altered. absent: Alert, Oriented x3 - Psychiatric Exam Psychiatric exam: absent: Normal Affect, Normal Mood - Skin Skin Exam: Dry, Intact, Normal Color, Warm Assessment/Plan (1) Anoxic encephalopathy Current Visit: Yes Status: Acute Comment: pt does occasionally move his upper extremities and lower extremities, flexing knees, dorsiflexing feet Unresponsive to verbal stimuli Clinical status remains unchanged (2) Cardiac arrest Current Visit: Yes Status: Acute Comment: s/p V-Tach arrest Continue Plavix 75mg PO daily Continue ASA 325mg PO daily Continue Lisinopril 5mg PO daily (3) Chest congestion Current Visit: Yes Status: Acute Comment: Repeat sputum culture (07/28) shows Pseudomonas aeruginosa sputum culture (07/18): Pseudomonas aeruginosa IV Cefepime 1gm q12h started 07/21 and completed on 07/26/15. Leukocytosis resolved and patient afebrile. Monitor vitals and CBC. (4) Edema of upper extremity Current Visit: Yes Status: Acute Comment: Venous doppler (07/19) - thrombosis of right cephalic vein (superficial ) Shows Abnormality see above plan (5) Respiratory failure Current Visit: Yes Status: Acute Comment: Dr. Salgado, Pulmonology, on case. Help very much appreciated. Patient on trach (6) STEMI (ST elevation myocardial infarction) Current Visit: Yes Status: Acute Comment: Continue ASA 325mg PO daily Continue Lisinopril 5mg PO daily Continue Plavix 75mg pO daily Dr. Figueroa on case. Help appreciated. (7) Seizures Current Visit: Yes Status: Acute Comment: Dr. Garcia on case-help appreciated Continue Fosphenytoin 100mg IVP Q8 No seizure activity [place]ice[place] secondary to anoxic brain injury Monitor for seizure activity (8) Thrombophlebitis of superficial veins of upper extremities Current Visit: Yes Status: Acute Comment: Venous doppler (07/19) prelim report - thrombosis of right cephalic vein (superficial) Shows Abnormality Lovenox 40mg SC daily Warm compresses to area 15 minutes, 3x a day f/u final venous doppler report (9) Transaminitis Current Visit: Yes Status: Acute Comment: LFTs continue to be elevated but are trending back down Hepatitis panel negative continue to monitor LFTs (10) UTI (lower urinary tract infection) Current Visit: Yes Status: Acute Comment: Urine Cx (07/28): neg UA (07/28): shows no WBC or Leuk esterases Urine CX (07/18): Coag neg staph (positive for Pseudomonas in past) IV Cefepime 1gm q12h started 07/21 and completed 07/26. (11) Prophylactic measure Current Visit: Yes Status: Acute Comment: Pepcid 20 mg PO q12 SCD's Plavix Miralax Colace BID
[2015-08-07] MEDS: Fosphenytoin 100 MG in Sodium Chloride 0.9% 50 ML IV SCH ×3 (04:25→20:24)
--- NOTE | 2015-08-07 07:13 | CP.PCM.PN ---
<Lauri Araya - Last Filed: 08/07/15 12:11> Subjective - Subjective Subjective: Pt seen and examined at bedside. Pt is unable to give ROS due to altered mental status. Pt was awake, unresponsive to verbal commands. Pt displayed eye movements, yawned while being examined. Review of Systems - Review of Systems Systems not reviewed;Unavailable: Altered Mental Status Objective - Vital Signs/Intake and Output Vital Signs (last 24 hours): Vital Signs - 24 hr 08/06/15 08/06/15 08/06/15 14:20 20:00 21:00 Temperature 97.7 F 98.5 F Pulse Rate 76 83 83 Respiratory 20 21 Rate Blood Pressure 97/62 L 128/82 O2 Sat by Pulse 100 100 Oximetry 08/07/15 06:07 Temperature 98.5 F Pulse Rate 70 Respiratory 18 Rate Blood Pressure 123/72 O2 Sat by Pulse 100 Oximetry Intake and Output (last 12 hours): Intake & Output 08/06/15 08/07/15 08/07/15 18:59 06:59 18:59 Intake Total 1020 Output Total 500 Balance 520 Intake: Intake, IV Amount 100 Right Wrist 100 Tube Feeding 720 Other 200 Output: Urine 500 Urethral (Yoo) 500 Other: # Bowel Movements 1 - Medications Medications: Current Medications Aspirin (Aspirin) 325 mg PO DAILY [facility] Last Admin: 08/06/15 09:20 Dose: 325 mg Clopidogrel Bisulfate (Plavix) 75 mg PO DAILY [facility] Last Admin: 08/06/15 09:20 Dose: 75 mg Docusate Sodium (Colace Liquid) 100 mg PO DAILY [facility] Last Admin: 08/06/15 09:20 Dose: 100 mg Fosphenytoin Sodium 100 mg/ (Sodium Chloride) 52 mls @ 100 mls/hr IV Q8H [facility] Last Admin: 08/07/15 04:25 Dose: 100 mls/hr Lisinopril (Zestril) 5 mg PO DAILY [facility] Last Admin: 08/06/15 09:20 Dose: 5 mg Polyethylene Glycol (Miralax) 17 gm PEG BID [facility] Last Admin: 08/06/15 17:53 Dose: 17 gm - Constitutional Appears: Well, Non-toxic, No Acute Distress - Head Exam Head Exam: ATRAUMATIC, NORMAL INSPECTION, NORMOCEPHALIC - Eye Exam Pupil Exam: NORMAL ACCOMODATION, PERRL - ENT Exam ENT Exam: Mucous Membranes Moist - Respiratory Exam Respiratory Exam: Clear to PA & Lateral, NORMAL BREATHING PATTERN, UNREMARKABLE. absent: Rales, Rhonchi, Wheezes - Cardiovascular Exam Cardiovascular Exam: REGULAR RHYTHM, +S1, +S2 - GI/Abdominal Exam GI & Abdominal Exam: Normal Bowel Sounds, Soft, Unremarkable. absent: Distended , Guarding, Tenderness - Extremities Exam Extremities exam: normal capillary refill, pedal pulses present - Neurological Exam Neurological exam: Alert, Oriented x3. absent: Altered - Psychiatric Exam Psychiatric exam: Normal Affect, Normal Mood - Skin Skin Exam: Dry, Intact, Normal Color, Warm Assessment/Plan (1) Anoxic encephalopathy Current Visit: Yes Status: Acute Comment: pt moved his eyes, yawned while being examined. Per Dr. Salgado, pt will have a CPAP trial/ weaning today. Unresponsive to verbal stimuli Clinical status remains unchanged (2) Cardiac arrest Current Visit: Yes Status: Acute Comment: s/p V-Tach arrest Continue Plavix 75mg PO daily Continue ASA 325mg PO daily Continue Lisinopril 5mg PO daily (3) Chest congestion Current Visit: Yes Status: Acute Comment: Repeat sputum culture (07/28) shows Pseudomonas aeruginosa sputum culture (07/18): Pseudomonas aeruginosa IV Cefepime 1gm q12h started 07/21 and completed on 07/26/15. Leukocytosis resolved and patient afebrile. Monitor vitals and CBC. (4) Edema of upper extremity Current Visit: Yes Status: Acute Comment: Venous doppler (07/19) - thrombosis of right cephalic vein (superficial ) Shows Abnormality see above plan (5) Respiratory failure Current Visit: Yes Status: Acute Comment: Dr. Salgado, Pulmonology, on case. Help very much appreciated. Patient on trach (6) STEMI (ST elevation myocardial infarction) Current Visit: Yes Status: Acute Comment: Continue ASA 325mg PO daily Continue Lisinopril 5mg PO daily Continue Plavix 75mg pO daily Dr. Figueroa on case. Help appreciated. (7) Seizures Current Visit: Yes Status: Acute Comment: Dr. Garcia on case-help appreciated Continue Fosphenytoin 100mg IVP Q8 No seizure activity likley secondary to anoxic brain injury Monitor for seizure activity (8) Thrombophlebitis of superficial veins of upper extremities Current Visit: Yes Status: Acute Comment: Venous doppler (8/27) prelim report - thrombosis of right cephalic vein (superficial) Shows Abnormality Lovenox 40mg SC daily Warm compresses to area 15 minutes, 3x a day f/u final venous doppler report (9) Transaminitis Current Visit: Yes Status: Acute Comment: LFTs continue to be elevated but are trending back down Hepatitis panel negative continue to monitor LFTs (10) UTI (lower urinary tract infection) Current Visit: Yes Status: Acute Comment: Urine Cx (07/28): neg UA (07/28): shows no WBC or Leuk esterases Urine CX (07/18): Coag neg staph (positive for Pseudomonas in past) IV Cefepime 1gm q12h started 07/21 and completed 07/26. (11) Prophylactic measure Current Visit: Yes Status: Acute Comment: Pepcid 20 mg PO q12 SCD's Plavix Miralax Colace BID <Rashel Rodrigues - Last Filed: 08/08/15 14:51> Objective - Vital Signs/Intake and Output Vital Signs (last 24 hours): Vital Signs - 24 hr 08/07/15 08/08/15 08/08/15 20:44 06:39 12:00 Temperature 99 F 97.8 F 98.4 F Pulse Rate 88 70 75 Respiratory 16 20 20 Rate Blood Pressure 114/83 117/75 112/79 O2 Sat by Pulse 100 100 100 Oximetry Intake and Output (last 12 hours): Intake & Output 08/07/15 08/08/15 08/08/15 18:59 06:59 18:59 Intake Total 700 700 Output Total 701 501 300 Balance -1 199 -300 Weight 105 lb Intake: Intake, IV Amount 100 100 Right Wrist 100 100 Tube Feeding 600 600 Output: Urine 700 500 300 Urethral (Yoo) 700 500 300 Stool 1 1 Emesis 0 Other: # Bowel Movements 1 - Medications Medications: Current Medications Aspirin (Aspirin) 325 mg PO DAILY [facility] Last Admin: 08/08/15 10:53 Dose: 325 mg Clopidogrel Bisulfate (Plavix) 75 mg PO DAILY [facility] Last Admin: 08/08/15 10:53 Dose: 75 mg Docusate Sodium (Colace Liquid) 100 mg PO DAILY [facility] Last Admin: 08/08/15 10:52 Dose: 100 mg Fosphenytoin Sodium 100 mg/ (Sodium Chloride) 52 mls @ 100 mls/hr IV Q8H [facility] Last Admin: 08/08/15 12:11 Dose: 100 mls/hr Lisinopril (Zestril) 5 mg PO DAILY [facility] Last Admin: 08/08/15 10:52 Dose: 5 mg Polyethylene Glycol (Miralax) 17 gm PEG BID [facility] Last Admin: 08/08/15 10:53 Dose: 17 gm Attending/Attestation - Attestation I have personally seen and examined this patient.: Yes I have fully participated in the care of the patient.: Yes I have reviewed all pertinent clinical information: Yes Notes (Text): 08/08/15 14:50 (Late entry for 08/07/15) Patient seen and examined during round with residents pt has some movement in both LE RADHA Pulm--> Dr Salgado will do vent weaning trial cont supportive mx
[2015-08-07 07:56] LABS: BASO % 0.3 % (0.0-2.0); EOS # 0.7 K/uL (0.0-0.7); HEMOGLOBIN 11.6 g/dL (12.0-18.0); LYMPH # 1.4 K/uL (1.0-4.3); LYMPH % 11.3 % (20.0-40.0); MEAN CELL VOLUME 94.1 fL (80.0-94.0); MEAN CORPUSCULAR HEMOGLOBIN 31.4 pg (27.0-31.0); MEAN CORPUSCULAR HGB CONC 33.4 g/dL (33.0-37.0); MEAN PLATELET VOLUME 8.8 fL (7.2-11.7); MONO # 0.8 K/uL (0.0-0.8); MONO % 6.7 % (0.0-10.0); NEUT # 9.2 K/uL (1.8-7.0); NEUT % 75.7 % (50.0-75.0); RBC 3.69 Mil/uL (4.40-5.90); RED CELL DISTRIBUTION WIDTH 15.4 % (11.5-14.5); WHITE BLOOD COUNT 12.2 K/uL (4.8-10.8)
[2015-08-07 08:34] LABS: ALBUMIN 3.2 g/dL (3.5-5.0)
[2015-08-07 08:36] LABS: GFR NON-AFRICAN AMERICAN > 60
[2015-08-07 08:37] LABS: ALB/GLOB RATIO 0.8 (1.0-2.1); ALT/SGPT 161 U/L (21-72); AST/SGOT 64 U/L (17-59); BLOOD UREA NITROGEN 21 mg/dL (9-20)
[2015-08-07 08:38] LABS: CALCIUM 8.6 mg/dL (8.4-10.2)
[2015-08-07] MEDS: POLYETHYLENE GLYCOL 3350 17 GM/Dose PACKET PEG SCH ×2 (10:49→17:59)
[2015-08-08] MEDS: Fosphenytoin 100 MG in Sodium Chloride 0.9% 50 ML IV SCH ×3 (04:38→21:00)
--- NOTE | 2015-08-08 07:31 | CP.PCM.PN ---
<Lauri Araya - Last Filed: 08/08/15 13:40> Subjective - Subjective Subjective: Pt was seen and examined at bedside Pt is awake, eyes moved with stimulation Pt is unable to give ROS due to altered mental status Pt yawned twice while being examined. No events overnight per nursing During rounds with Dr. Rodrigues, Pt yawned and flexed as well as abducted his arms in a stretching motion. Pt also simultaneously moved both his legs briefly. Review of Systems - Review of Systems Systems not reviewed;Unavailable: Altered Mental Status Objective - Vital Signs/Intake and Output Vital Signs (last 24 hours): Vital Signs - 24 hr 08/07/15 08/07/15 08/08/15 14:00 20:44 06:39 Temperature 98.6 F 99 F 97.8 F Pulse Rate 76 88 70 Respiratory 20 16 20 Rate Blood Pressure 111/76 114/83 117/75 O2 Sat by Pulse 100 100 100 Oximetry Intake and Output (last 12 hours): Intake & Output 08/07/15 08/08/15 08/08/15 18:59 06:59 18:59 Intake Total 700 700 Output Total 701 501 Balance -1 199 Weight 105 lb Intake: Intake, IV Amount 100 100 Right Wrist 100 100 Tube Feeding 600 600 Output: Urine 700 500 Urethral (Yoo) 700 500 Stool 1 1 Emesis 0 - Medications Medications: Current Medications Aspirin (Aspirin) 325 mg PO DAILY [facility] Last Admin: 08/07/15 10:49 Dose: 325 mg Clopidogrel Bisulfate (Plavix) 75 mg PO DAILY [facility] Last Admin: 08/07/15 10:49 Dose: 75 mg Docusate Sodium (Colace Liquid) 100 mg PO DAILY [facility] Last Admin: 08/07/15 10:49 Dose: 100 mg Fosphenytoin Sodium 100 mg/ (Sodium Chloride) 52 mls @ 100 mls/hr IV Q8H [facility] Last Admin: 08/08/15 04:38 Dose: 100 mls/hr Lisinopril (Zestril) 5 mg PO DAILY [facility] Last Admin: 08/07/15 10:49 Dose: 5 mg Polyethylene Glycol (Miralax) 17 gm PEG BID [facility] Last Admin: 08/07/15 17:59 Dose: 17 gm - Labs Labs (last 24 hours): Laboratory Results - last 24 hr 08/07/15 07:12 WBC 12.2 H RBC 3.69 L Hgb 11.6 L Hct 34.7 L MCV 94.1 H MCH 31.4 H MCHC 33.4 RDW 15.4 H Plt Count 264 MPV 8.8 Neut % (Auto) 75.7 H Lymph % (Auto) 11.3 L [place] % (Auto) 6.7 Eos % (Auto) 6.0 H Baso % (Auto) 0.3 Neut # 9.2 H Lymph # 1.4 [place] # 0.8 Eos # 0.7 Baso # 0.0 Sodium 138 Potassium 4.5 Chloride 100 Carbon Dioxide 31 H Anion Gap 12 BUN 21 H Creatinine 0.5 L Est GFR ( Amer) > 60 Est GFR (Non-Af Amer) > 60 Random Glucose 134 H Calcium 8.6 Phosphorus 4.6 H Magnesium 2.2 Total Bilirubin 0.5 AST 64 H D ALT 161 H Alkaline Phosphatase 151 H Total Protein 7.3 Albumin 3.2 L Globulin 4.0 H Albumin/Globulin Ratio 0.8 L - Constitutional Appears: Well, Non-toxic, No Acute Distress - Head Exam Head Exam: ATRAUMATIC, NORMAL INSPECTION, NORMOCEPHALIC - Eye Exam Pupil Exam: NORMAL ACCOMODATION, PERRL - ENT Exam ENT Exam: Mucous Membranes Dry Additional comments: trach still in place - Respiratory Exam Respiratory Exam: Clear to PA & Lateral, NORMAL BREATHING PATTERN, UNREMARKABLE. absent: Rales, Rhonchi, Wheezes - Cardiovascular Exam Cardiovascular Exam: REGULAR RHYTHM, +S1, +S2 - GI/Abdominal Exam GI & Abdominal Exam: Normal Bowel Sounds, Soft, Unremarkable. absent: Distended , Guarding, Tenderness - Extremities Exam Extremities exam: normal capillary refill, pedal edema, pedal pulses present - Neurological Exam Neurological exam: Altered. absent: Alert, Oriented x3 - Psychiatric Exam Psychiatric exam: absent: Normal Affect, Normal Mood - Skin Skin Exam: Dry, Intact, Normal Color, Warm Assessment/Plan (1) Anoxic encephalopathy Current Visit: Yes Status: Acute Comment: 08/08/15- Pt moved multiple times during the exam and yawned twice. During rounds, pt yawned and stretched his arms in flexion/ abduction. Per Dr. Salgado, he will attempt to wean the pt off vent today Unresponsive to verbal stimuli (2) Cardiac arrest Current Visit: Yes Status: Acute Comment: s/p V-Tach arrest Continue Plavix 75mg PO daily Continue ASA 325mg PO daily Continue Lisinopril 5mg PO daily (3) Chest congestion Current Visit: Yes Status: Acute Comment: Repeat sputum culture (07/28) shows Pseudomonas aeruginosa sputum culture (07/18): Pseudomonas aeruginosa IV Cefepime 1gm q12h started 07/21 and completed on 07/26/15. Leukocytosis resolved and patient afebrile. Monitor vitals and CBC. (4) Edema of upper extremity Current Visit: Yes Status: Acute Comment: Venous doppler (07/19) - thrombosis of right cephalic vein (superficial ) Shows Abnormality see above plan (5) Respiratory failure Current Visit: Yes Status: Acute Comment: Dr. Salgado, Pulmonology, on case. Help very much appreciated. Patient on trach (6) STEMI (ST elevation myocardial infarction) Current Visit: Yes Status: Acute Comment: Continue ASA 325mg PO daily Continue Lisinopril 5mg PO daily Continue Plavix 75mg pO daily Dr. Figueroa on case. Help appreciated. (7) Seizures Current Visit: Yes Status: Acute Comment: Dr. Garcia on case-help appreciated Continue Fosphenytoin 100mg IVP Q8 No seizure activity likley secondary to anoxic brain injury Monitor for seizure activity (8) Thrombophlebitis of superficial veins of upper extremities Current Visit: Yes Status: Acute Comment: Venous doppler (07/19) prelim report - thrombosis of right cephalic vein (superficial) Shows Abnormality Lovenox 40mg SC daily Warm compresses to area 15 minutes, 3x a day f/u final venous doppler report (9) Transaminitis Current Visit: Yes Status: Acute Comment: LFTs continue to be elevated but are trending back down Hepatitis panel negative continue to monitor LFTs (10) UTI (lower urinary tract infection) Current Visit: Yes Status: Acute Comment: Urine Cx (07/28): neg UA (07/28): shows no WBC or Leuk esterases Urine CX (07/18): Coag neg staph (positive for Pseudomonas in past) IV Cefepime 1gm q12h started 07/21 and completed 07/26. (11) Prophylactic measure Current Visit: Yes Status: Acute Comment: Pepcid 20 mg PO q12 SCD's Plavix Miralax Colace BID <Rashel Rodrigues - Last Filed: 09/16/15 18:43> Objective - Vital Signs/Intake and Output Vital Signs (last 24 hours): Vital Signs - 24 hr 08/07/15 08/08/15 08/08/15 20:44 06:39 12:00 Temperature 99 F 97.8 F 98.4 F Pulse Rate 88 70 75 Respiratory 16 20 20 Rate Blood Pressure 114/83 117/75 112/79 O2 Sat by Pulse 100 100 100 Oximetry Intake and Output (last 12 hours): Intake & Output 08/07/15 08/08/15 08/08/15 18:59 06:59 18:59 Intake Total 700 700 Output Total 701 501 300 Balance -1 199 -300 Weight 105 lb Intake: Intake, IV Amount 100 100 Right Wrist 100 100 Tube Feeding 600 600 Output: Urine 700 500 300 Urethral (Yoo) 700 500 300 Stool 1 1 Emesis 0 Other: # Bowel Movements 1 - Medications Medications: Current Medications Aspirin (Aspirin) 325 mg PO DAILY [facility] Last Admin: 08/08/15 10:53 Dose: 325 mg Clopidogrel Bisulfate (Plavix) 75 mg PO DAILY [facility] Last Admin: 08/08/15 10:53 Dose: 75 mg Docusate Sodium (Colace Liquid) 100 mg PO DAILY [facility] Last Admin: 08/08/15 10:52 Dose: 100 mg Fosphenytoin Sodium 100 mg/ (Sodium Chloride) 52 mls @ 100 mls/hr IV Q8H [facility] Last Admin: 08/08/15 12:11 Dose: 100 mls/hr Lisinopril (Zestril) 5 mg PO DAILY [facility] Last Admin: 08/08/15 10:52 Dose: 5 mg Polyethylene Glycol (Miralax) 17 gm PEG BID [facility] Last Admin: 08/08/15 18:17 Dose: 17 gm Attending/Attestation - Attestation I have personally seen and examined this patient.: Yes I have fully participated in the care of the patient.: Yes I have reviewed all pertinent clinical information: Yes Notes (Text): 08/08/15 18:41 Patient seen and examined during round with residents pt is still on vent pt was noted having yawning, flexing and lifting both UE and LE, pt also has eye contact and following movements during round witnessed by resident and students, and by myself. vent weaning as per Pulm, cont supportive mx
[2015-08-08] MEDS: POLYETHYLENE GLYCOL 3350 17 GM/Dose PACKET PEG SCH ×2 (10:53→18:17)
[2015-08-09] MEDS: Fosphenytoin 100 MG in Sodium Chloride 0.9% 50 ML IV SCH ×3 (03:16→20:31)
[2015-08-09 08:38] LABS: BASO % 0.4 % (0.0-2.0); EOS # 0.5 K/uL (0.0-0.7); EOS % 5.8 % (0.0-4.0); HEMOGLOBIN 11.5 g/dL (12.0-18.0); LYMPH # 1.3 K/uL (1.0-4.3); LYMPH % 13.5 % (20.0-40.0); MEAN CELL VOLUME 94.3 fL (80.0-94.0); MEAN CORPUSCULAR HEMOGLOBIN 31.3 pg (27.0-31.0); MEAN CORPUSCULAR HGB CONC 33.2 g/dL (33.0-37.0); MEAN PLATELET VOLUME 8.6 fL (7.2-11.7); MONO # 0.7 K/uL (0.0-0.8); MONO % 7.8 % (0.0-10.0); NEUT # 6.8 K/uL (1.8-7.0); NEUT % 72.5 % (50.0-75.0); RBC 3.66 Mil/uL (4.40-5.90); RED CELL DISTRIBUTION WIDTH 15.3 % (11.5-14.5); WHITE BLOOD COUNT 9.4 K/uL (4.8-10.8)
[2015-08-09 08:41] LABS: ALBUMIN 3.3 g/dL (3.5-5.0)
[2015-08-09 08:44] LABS: ALB/GLOB RATIO 0.8 (1.0-2.1); AST/SGOT 70 U/L (17-59); GFR NON-AFRICAN AMERICAN > 60
[2015-08-09 08:45] LABS: ALT/SGPT 150 U/L (21-72); BLOOD UREA NITROGEN 18 mg/dL (9-20); CALCIUM 8.6 mg/dL (8.4-10.2)
[2015-08-09] MEDS: POLYETHYLENE GLYCOL 3350 17 GM/Dose PACKET PEG SCH ×2 (10:57→18:25)
--- NOTE | 2015-08-09 22:14 | CP.PCM.PN ---
<Lauri Araya - Last Filed: 08/09/15 22:12> Subjective - Subjective Subjective: Pt seen and examined at bedside Pt unable to give ROS due to altered mental state Pt is awake, unresponsive to verbal or physical stimuli. Occasionally looks at me, no tracking. Pt yawned during examination Review of Systems - Review of Systems Systems not reviewed;Unavailable: Altered Mental Status Objective - Vital Signs/Intake and Output Vital Signs (last 24 hours): Vital Signs - 24 hr 08/09/15 08/09/15 08/09/15 03:59 13:57 21:38 Temperature 99.5 F 99.2 F 97.0 F L Pulse Rate 75 75 93 H Respiratory 20 20 20 Rate Blood Pressure 105/63 123/76 135/83 O2 Sat by Pulse 100 100 100 Oximetry Intake and Output (last 12 hours): Intake & Output 08/09/15 08/09/15 08/10/15 06:59 18:59 06:59 Intake Total 980 Output Total 400 1000 Balance 580 -1000 Intake: Intake, IV Amount 120 Right Wrist 120 Tube Feeding 560 Other 300 Output: Urine 400 1000 Urethral (Yoo) 400 1000 Other: # Bowel Movements 1 - Medications Medications: Current Medications Aspirin (Aspirin) 325 mg PO DAILY [facility] Last Admin: 08/09/15 10:57 Dose: 325 mg Clopidogrel Bisulfate (Plavix) 75 mg PO DAILY [facility] Last Admin: 08/09/15 10:57 Dose: 75 mg Docusate Sodium (Colace Liquid) 100 mg PO DAILY [facility] Last Admin: 08/09/15 10:57 Dose: 100 mg Fosphenytoin Sodium 100 mg/ (Sodium Chloride) 52 mls @ 100 mls/hr IV Q8H [facility] Last Admin: 08/09/15 20:31 Dose: 100 mls/hr Lisinopril (Zestril) 5 mg PO DAILY [facility] Last Admin: 08/09/15 10:57 Dose: 5 mg Polyethylene Glycol (Miralax) 17 gm PEG BID [facility] Last Admin: 08/09/15 18:25 Dose: 17 gm - Labs Labs (last 24 hours): Laboratory Results - last 24 hr 08/09/15 07:50 WBC 9.4 RBC 3.66 L Hgb 11.5 L Hct 34.5 L MCV 94.3 H MCH 31.3 H MCHC 33.2 RDW 15.3 H Plt Count 268 MPV 8.6 Neut % (Auto) 72.5 Lymph % (Auto) 13.5 L [place] % (Auto) 7.8 Eos % (Auto) 5.8 H Baso % (Auto) 0.4 Neut # 6.8 Lymph # 1.3 [place] # 0.7 Eos # 0.5 Baso # 0.0 Sodium 140 Potassium 4.2 Chloride 101 Carbon Dioxide 30 Anion Gap 14 BUN 18 Creatinine 0.5 L Est GFR ( Amer) > 60 Est GFR (Non-Af Amer) > 60 Random Glucose 127 H Calcium 8.6 Total Bilirubin 0.4 AST 70 H ALT 150 H Alkaline Phosphatase 151 H Total Protein 7.4 Albumin 3.3 L Globulin 4.0 H Albumin/Globulin Ratio 0.8 L - Constitutional Appears: Non-toxic, No Acute Distress, Chronically Ill - Head Exam Head Exam: ATRAUMATIC, NORMAL INSPECTION - Eye Exam Pupil Exam: NORMAL ACCOMODATION, PERRL - ENT Exam ENT Exam: Mucous Membranes Moist - Respiratory Exam Respiratory Exam: Clear to PA & Lateral, NORMAL BREATHING PATTERN, UNREMARKABLE. absent: Rales, Rhonchi, Wheezes - Cardiovascular Exam Cardiovascular Exam: REGULAR RHYTHM, +S1, +S2 - GI/Abdominal Exam GI & Abdominal Exam: Normal Bowel Sounds, Soft, Unremarkable. absent: Distended , Firm, Tenderness - Extremities Exam Extremities exam: normal capillary refill, pedal pulses present - Neurological Exam Neurological exam: Altered - Psychiatric Exam Psychiatric exam: absent: Normal Affect, Normal Mood - Skin Skin Exam: Dry, Intact, Normal Color, Warm Assessment/Plan (1) Anoxic encephalopathy Current Visit: Yes Status: Acute Comment: 08/09/15- Pt yawned during exam. No additional movements noted. Will f/ u with Dr. Salgado in regards to weaning patient off ventilator. 08/08/15- Pt moved multiple times during the exam and yawned twice. During rounds, pt yawned and stretched his arms in flexion/ abduction. Per Dr. Salgado, he will attempt to wean the pt off vent today Unresponsive to verbal stimuli (2) Cardiac arrest Current Visit: Yes Status: Acute Comment: s/p V-Tach arrest Continue Plavix 75mg PO daily Continue ASA 325mg PO daily Continue Lisinopril 5mg PO daily (3) Chest congestion Current Visit: Yes Status: Acute Comment: Repeat sputum culture (07/28) shows Pseudomonas aeruginosa sputum culture (07/18): Pseudomonas aeruginosa IV Cefepime 1gm q12h started 07/21 and completed on 07/26/15. Leukocytosis resolved and patient afebrile. Monitor vitals and CBC. (4) Edema of upper extremity Current Visit: Yes Status: Acute Comment: Venous doppler (07/19) - thrombosis of right cephalic vein (superficial ) Shows Abnormality see above plan (5) Respiratory failure Current Visit: Yes Status: Acute Comment: Dr. Salgado, Pulmonology, on case. Help very much appreciated. Patient on trach (6) STEMI (ST elevation myocardial infarction) Current Visit: Yes Status: Acute Comment: Continue ASA 325mg PO daily Continue Lisinopril 5mg PO daily Continue Plavix 75mg pO daily Dr. Figueroa on case. Help appreciated. (7) Seizures Current Visit: Yes Status: Acute Comment: Dr. Garcia on case-help appreciated Continue Fosphenytoin 100mg IVP Q8 No seizure activity likley secondary to anoxic brain injury Monitor for seizure activity (8) Thrombophlebitis of superficial veins of upper extremities Current Visit: Yes Status: Acute Comment: Venous doppler (07/19) prelim report - thrombosis of right cephalic vein (superficial) Shows Abnormality Lovenox 40mg SC daily Warm compresses to area 15 minutes, 3x a day f/u final venous doppler report (9) Transaminitis Current Visit: Yes Status: Acute Comment: LFTs continue to be elevated but are trending back down Hepatitis panel negative continue to monitor LFTs (10) UTI (lower urinary tract infection) Current Visit: Yes Status: Acute Comment: Urine Cx (07/28): neg UA (07/28): shows no WBC or Leuk esterases Urine CX (07/18): Coag neg staph (positive for Pseudomonas in past) IV Cefepime 1gm q12h started 07/21 and completed 07/26. (11) Bed sore Current Visit: Yes Status: Acute Comment: 08/09- stage one ulcer, healed, per nursing. (12) Prophylactic measure Current Visit: Yes Status: Acute Comment: Pepcid 20 mg PO q12 SCD's Plavix Miralax Colace BID <Donavan Hallman - Last Filed: 08/10/15 14:16> Objective - Vital Signs/Intake and Output Vital Signs (last 24 hours): Vital Signs - 24 hr 08/09/15 08/09/15 08/10/15 21:38 22:18 06:00 Temperature 97.0 F L 98.5 F 98.3 F Pulse Rate 93 H 110 H 87 Respiratory 20 20 18 Rate Blood Pressure 135/83 124/84 163/83 H O2 Sat by Pulse 100 100 100 Oximetry Intake and Output (last 12 hours): Intake & Output 08/09/15 08/10/15 08/10/15 18:59 06:59 18:59 Intake Total 800 Output Total 1000 750 Balance -1000 50 Intake: Intake, IV Amount 100 Right Wrist 100 Tube Feeding 700 Output: Urine 1000 750 Urethral (Yoo) 1000 750 Other: # Bowel Movements 1 - Medications Medications: Current Medications Aspirin (Aspirin) 325 mg PO DAILY [facility] Last Admin: 08/10/15 10:07 Dose: 325 mg Clopidogrel Bisulfate (Plavix) 75 mg PO DAILY [facility] Last Admin: 08/10/15 10:07 Dose: 75 mg Docusate Sodium (Colace Liquid) 100 mg PO DAILY [facility] Last Admin: 08/10/15 10:07 Dose: 100 mg Lisinopril (Zestril) 5 mg PO DAILY [facility] Last Admin: 08/10/15 10:07 Dose: 5 mg Phenytoin Sodium (Dilantin) 100 mg PO TID [facility] Polyethylene Glycol (Miralax) 17 gm PEG BID [facility] Last Admin: 08/10/15 10:07 Dose: 17 gm - Labs Labs (last 24 hours): Laboratory Results - last 24 hr 08/10/15 11:54 POC Glucose (mg/dL) 126 H Attending/Attestation - Attestation I have personally seen and examined this patient.: Yes I have fully participated in the care of the patient.: Yes I have reviewed all pertinent clinical information: Yes
[2015-08-10] MEDS: Fosphenytoin 100 MG in Sodium Chloride 0.9% 50 ML IV SCH (04:01)
[2015-08-10] MEDS: POLYETHYLENE GLYCOL 3350 17 GM/Dose PACKET PEG SCH ×2 (10:07→18:18)
--- NOTE | 2015-08-10 10:24 | CP.PCM.PN ---
<Judith Baires H - Last Filed: 08/10/15 10:21> Subjective - Subjective Subjective: PGY1 Medicine Note: Patient seen and examined at bedside this AM. Patient unable to give ROS due to AMS. Patient awake, but unresponsive to verbal or physical stimuli. Glascow Coma Scale - 6 (Severe). Review of Systems - Review of Systems Systems not reviewed;Unavailable: Altered Mental Status Objective - Vital Signs/Intake and Output Vital Signs (last 24 hours): Vital Signs - 24 hr 08/09/15 08/09/15 08/09/15 13:57 21:38 22:18 Temperature 99.2 F 97.0 F L 98.5 F Pulse Rate 75 93 H 110 H Respiratory 20 20 20 Rate Blood Pressure 123/76 135/83 124/84 O2 Sat by Pulse 100 100 100 Oximetry 08/10/15 06:00 Temperature 98.3 F Pulse Rate 87 Respiratory 18 Rate Blood Pressure 163/83 H O2 Sat by Pulse 100 Oximetry Intake and Output (last 12 hours): Intake & Output 08/09/15 08/10/15 08/10/15 18:59 06:59 18:59 Intake Total 800 Output Total 1000 750 Balance -1000 50 Intake: Intake, IV Amount 100 Right Wrist 100 Tube Feeding 700 Output: Urine 1000 750 Urethral (Yoo) 1000 750 Other: # Bowel Movements 1 - Medications Medications: Current Medications Aspirin (Aspirin) 325 mg PO DAILY [facility] Last Admin: 08/10/15 10:07 Dose: 325 mg Clopidogrel Bisulfate (Plavix) 75 mg PO DAILY [facility] Last Admin: 08/10/15 10:07 Dose: 75 mg Docusate Sodium (Colace Liquid) 100 mg PO DAILY [facility] Last Admin: 08/10/15 10:07 Dose: 100 mg Lisinopril (Zestril) 5 mg PO DAILY [facility] Last Admin: 08/10/15 10:07 Dose: 5 mg Phenytoin Sodium (Dilantin) 100 mg PO TID [facility] Polyethylene Glycol (Miralax) 17 gm PEG BID [facility] Last Admin: 08/10/15 10:07 Dose: 17 gm - Constitutional Appears: Chronically Ill - Head Exam Head Exam: NORMAL INSPECTION - Eye Exam Eye Exam: Normal appearance, PERRL - ENT Exam ENT Exam: Mucous Membranes Moist - Respiratory Exam Respiratory Exam: Clear to PA & Lateral, NORMAL BREATHING PATTERN Additional comments: SIMV (PRVC) + pressure support O2conc 40, PEEP 5, SIMV rate 8, TV 450 - Cardiovascular Exam Cardiovascular Exam: REGULAR RHYTHM, +S1, +S2 - GI/Abdominal Exam GI & Abdominal Exam: Normal Bowel Sounds, Soft Additional comments: peg tube in place gauze under plastic clean - Extremities Exam Extremities exam: absent: pedal edema Additional comments: hand edema bilateral R>L - Neurological Exam Neurological exam: Altered - Skin Skin Exam: Dry, Normal Color Assessment/Plan (1) Transaminitis Current Visit: Yes Status: Acute Comment: LFTs continue to be elevated but are trending back down Hepatitis panel negative continue to monitor LFTs (2) Respiratory failure Current Visit: Yes Status: Acute Comment: Dr. Salgado, Pulmonology, on case. Help very much appreciated. Patient on trach SIMV (PRVC) + pressure support Weaning being attempted (3) Anoxic encephalopathy Current Visit: Yes Status: Acute Comment: 08/10/15 - No movement noted 08/09/15- Pt yawned during exam. No additional movements noted. Will f/u with Dr. Salgado in regards to weaning patient off ventilator. 08/08/15- Pt moved multiple times during the exam and yawned twice. During rounds, pt yawned and stretched his arms in flexion/ abduction. Per Dr. Salgado, he will attempt to wean the pt off vent today Unresponsive to verbal stimuli (4) CAD (coronary artery disease) Current Visit: Yes Status: Acute Comment: s/p cardiac cath with stenting Continue Lisinopril 5mg PO daily Continue Plavix 75mg PO daily Continue ASA 325mg PO daily (5) STEMI (ST elevation myocardial infarction) Current Visit: Yes Status: Acute Comment: Continue ASA 325mg PO daily Continue Lisinopril 5mg PO daily Continue Plavix 75mg pO daily Dr. Figueroa on case. Help appreciated. (6) Seizures Current Visit: Yes Status: Acute Comment: 08/10/15: switched fosphenytoin IV to phenytoin 100mg PEG Q8H Dr. Garcia on case-help appreciated No seizure activity likley secondary to anoxic brain injury Monitor for seizure activity (7) Chest congestion Current Visit: Yes Status: Acute Comment: Repeat sputum culture (07/28) shows Pseudomonas aeruginosa sputum culture (07/18): Pseudomonas aeruginosa IV Cefepime 1gm q12h started 07/21 and completed on 07/26/15. Leukocytosis resolved and patient afebrile. Monitor vitals and CBC. (8) UTI (lower urinary tract infection) Current Visit: Yes Status: Acute Comment: Urine Cx (07/28): neg UA (07/28): shows no WBC or Leuk esterases Urine CX (07/18): Coag neg staph (positive for Pseudomonas in past) IV Cefepime 1gm q12h started 07/21 and completed 07/26. (9) Bed sore Current Visit: Yes Status: Acute Comment: 08/09- stage one ulcer, healed, per nursing. continue repositioning of patient q2H dolphin mattress (10) Prophylactic measure Current Visit: Yes Status: Acute Comment: Pepcid 20 mg PO q12 SCD's Plavix Miralax Colace BID <Rashel Rodrigues - Last Filed: 08/10/15 18:24> Objective - Vital Signs/Intake and Output Vital Signs (last 24 hours): Vital Signs - 24 hr 08/09/15 08/09/15 08/10/15 21:38 22:18 06:00 Temperature 97.0 F L 98.5 F 98.3 F Pulse Rate 93 H 110 H 87 Respiratory 20 20 18 Rate Blood Pressure 135/83 124/84 163/83 H O2 Sat by Pulse 100 100 100 Oximetry 08/10/15 14:00 Temperature 98 F Pulse Rate 78 Respiratory 20 Rate Blood Pressure 110/70 O2 Sat by Pulse Oximetry Intake and Output (last 12 hours): Intake & Output 08/09/15 08/10/15 08/10/15 18:59 06:59 18:59 Intake Total 800 Output Total 1000 750 Balance -1000 50 Intake: Intake, IV Amount 100 Right Wrist 100 Tube Feeding 700 Output: Urine 1000 750 Urethral (Yoo) 1000 750 Other: # Bowel Movements 1 - Medications Medications: Current Medications Aspirin (Aspirin) 325 mg PO DAILY [facility] Last Admin: 08/10/15 10:07 Dose: 325 mg Clopidogrel Bisulfate (Plavix) 75 mg PO DAILY [facility] Last Admin: 08/10/15 10:07 Dose: 75 mg Docusate Sodium (Colace Liquid) 100 mg PO DAILY [facility] Last Admin: 08/10/15 10:07 Dose: 100 mg Lisinopril (Zestril) 5 mg PO DAILY [facility] Last Admin: 08/10/15 10:07 Dose: 5 mg Phenytoin (Dilantin) 100 mg PEG TID [facility] Last Admin: 08/10/15 18:17 Dose: 100 mg Polyethylene Glycol (Miralax) 17 gm PEG BID [facility] Last Admin: 08/10/15 18:18 Dose: Not Given - Labs Labs (last 24 hours): Laboratory Results - last 24 hr 08/10/15 11:54 POC Glucose (mg/dL) 126 H Attending/Attestation - Attestation I have personally seen and examined this patient.: Yes I have fully participated in the care of the patient.: Yes I have reviewed all pertinent clinical information: Yes Notes (Text): 08/10/15 18:23 Patient seen and examined during round with residents pt has no new events still on Vent Vent weaning as per Pulm cont supportive care
[2015-08-10] MEDS: Phenytoin 100 mg/4 ml Oral Susp UD PEG SCH (18:17)
--- NOTE | 2015-08-11 02:40 | CP.PCM.PN ---
<Lauri Araya - Last Filed: 08/11/15 02:38> Subjective - Subjective Subjective: Pt seen and examined at bedside Pt unable to give ROS due to altered mental state Pt unresponsive to verbal stimuli pt is resting comfortably Spontaneous movement of feet noted. Review of Systems - Review of Systems Systems not reviewed;Unavailable: Altered Mental Status Objective - Vital Signs/Intake and Output Vital Signs (last 24 hours): Vital Signs - 24 hr 08/10/15 08/10/15 08/10/15 06:00 14:00 21:44 Temperature 98.3 F 98 F 97.9 F Pulse Rate 87 78 86 Respiratory 18 20 18 Rate Blood Pressure 163/83 H 110/70 119/78 O2 Sat by Pulse 100 99 Oximetry Intake and Output (last 12 hours): Intake & Output 08/10/15 08/10/15 08/11/15 06:59 18:59 06:59 Intake Total 800 Output Total 750 2000 Balance 50 -2000 Intake: Intake, IV Amount 100 Right Wrist 100 Tube Feeding 700 Output: Urine 750 2000 Urethral (Yoo) 750 2000 - Medications Medications: Current Medications Aspirin (Aspirin) 325 mg PO DAILY [facility] Last Admin: 08/10/15 10:07 Dose: 325 mg Clopidogrel Bisulfate (Plavix) 75 mg PO DAILY [facility] Last Admin: 08/10/15 10:07 Dose: 75 mg Docusate Sodium (Colace Liquid) 100 mg PO DAILY [facility] Last Admin: 08/10/15 10:07 Dose: 100 mg Lisinopril (Zestril) 5 mg PO DAILY [facility] Last Admin: 08/10/15 10:07 Dose: 5 mg Phenytoin (Dilantin) 100 mg PEG TID [facility] Last Admin: 08/10/15 18:17 Dose: 100 mg Polyethylene Glycol (Miralax) 17 gm PEG BID [facility] Last Admin: 08/10/15 18:18 Dose: Not Given - Labs Labs (last 24 hours): Laboratory Results - last 24 hr 08/10/15 11:54 POC Glucose (mg/dL) 126 H - Constitutional Appears: Well, Non-toxic, No Acute Distress - Head Exam Head Exam: ATRAUMATIC, NORMAL INSPECTION, NORMOCEPHALIC - ENT Exam ENT Exam: Mucous Membranes Moist - Respiratory Exam Respiratory Exam: Clear to PA & Lateral, NORMAL BREATHING PATTERN, UNREMARKABLE. absent: Rales, Rhonchi, Wheezes - Cardiovascular Exam Cardiovascular Exam: REGULAR RHYTHM, +S1, +S2 - GI/Abdominal Exam GI & Abdominal Exam: Normal Bowel Sounds, Soft, Unremarkable. absent: Distended , Tenderness - Extremities Exam Extremities exam: normal capillary refill, pedal pulses present - Neurological Exam Neurological exam: Alert, Oriented x3 - Psychiatric Exam Psychiatric exam: Normal Affect, Normal Mood - Skin Skin Exam: Dry, Intact, Normal Color, Warm Assessment/Plan (1) Anoxic encephalopathy Current Visit: Yes Status: Acute Comment: 08/11/15- spontaneous movement of feet noted. Pt's eyes were closed. 08/10/15 - No movement noted 08/09/15- Pt yawned during exam. No additional movements noted. Will f/u with Dr. Salgado in regards to weaning patient off ventilator. 08/08/15- Pt moved multiple times during the exam and yawned twice. During rounds, pt yawned and stretched his arms in flexion/ abduction. Per Dr. Salgado, he will attempt to wean the pt off vent today Unresponsive to verbal stimuli (2) Cardiac arrest Current Visit: Yes Status: Acute Comment: s/p V-Tach arrest Continue Plavix 75mg PO daily Continue ASA 325mg PO daily Continue Lisinopril 5mg PO daily (3) Chest congestion Current Visit: Yes Status: Acute Comment: Repeat sputum culture (07/28) shows Pseudomonas aeruginosa sputum culture (07/18): Pseudomonas aeruginosa IV Cefepime 1gm q12h started 07/21 and completed on 07/26/15. Leukocytosis resolved and patient afebrile. Monitor vitals and CBC. (4) Edema of upper extremity Current Visit: Yes Status: Acute Comment: Venous doppler (07/19) - thrombosis of right cephalic vein (superficial ) Shows Abnormality see above plan (5) Respiratory failure Current Visit: Yes Status: Acute Comment: Dr. Salgado, Pulmonology, on case. Help very much appreciated. Patient on trach SIMV (PRVC) + pressure support Weaning being attempted (6) STEMI (ST elevation myocardial infarction) Current Visit: Yes Status: Acute Comment: Continue ASA 325mg PO daily Continue Lisinopril 5mg PO daily Continue Plavix 75mg pO daily Dr. Figueroa on case. Help appreciated. (7) Seizures Current Visit: Yes Status: Acute Comment: 08/10/15: switched fosphenytoin IV to phenytoin 100mg PEG Q8H Dr. Garcia on case-help appreciated No seizure activity janiceley secondary to anoxic brain injury Monitor for seizure activity (8) Thrombophlebitis of superficial veins of upper extremities Current Visit: Yes Status: Acute Comment: Venous doppler (07/19) prelim report - thrombosis of right cephalic vein (superficial) Shows Abnormality Lovenox 40mg SC daily Warm compresses to area 15 minutes, 3x a day f/u final venous doppler report (9) Transaminitis Current Visit: Yes Status: Acute Comment: LFTs continue to be elevated but are trending back down Hepatitis panel negative continue to monitor LFTs (10) UTI (lower urinary tract infection) Current Visit: Yes Status: Acute Comment: Urine Cx (07/28): neg UA (07/28): shows no WBC or Leuk esterases Urine CX (07/18): Coag neg staph (positive for Pseudomonas in past) IV Cefepime 1gm q12h started 07/21 and completed 07/26. (11) Bed sore Current Visit: Yes Status: Acute Comment: 08/09- stage one ulcer, healed, per nursing. continue repositioning of patient q2H dolphin mattress (12) Prophylactic measure Current Visit: Yes Status: Acute Comment: Pepcid 20 mg PO q12 SCD's Plavix Miralax Colace BID <Wenid Mercedes R - Last Filed: 08/11/15 17:34> Subjective - Subjective Subjective: Medical Attending Note: Patient seen and examined by me this AM. Agree with resident HPI/Exam/A&P with appropriate additions and changes. All new labs and studies reviewed by me. Patient does not speak. Patient unresponsive to verbal and painful stimuli. Unable to obtain review of systems from patient. Objective - Vital Signs/Intake and Output Vital Signs (last 24 hours): Vital Signs - 24 hr 08/10/15 08/11/15 08/11/15 21:44 05:33 13:49 Temperature 97.9 F 98.4 F 98.2 F Pulse Rate 86 81 65 Respiratory 18 20 20 Rate Blood Pressure 119/78 108/74 106/79 O2 Sat by Pulse 99 100 94 L Oximetry Intake and Output (last 12 hours): Intake & Output 08/10/15 08/11/15 08/11/15 18:59 06:59 18:59 Intake Total 820 Output Total 2400 Balance -1580 Weight 105 lb Intake: Tube Feeding 720 Other 100 Output: Urine 2400 Urethral (Yoo) 2400 - Medications Medications: Current Medications Aspirin (Aspirin) 325 mg PO DAILY [facility] Last Admin: 08/11/15 09:48 Dose: 325 mg Clopidogrel Bisulfate (Plavix) 75 mg PO DAILY [facility] Last Admin: 08/11/15 09:47 Dose: 75 mg Docusate Sodium (Colace Liquid) 100 mg PO DAILY [facility] Last Admin: 08/11/15 09:47 Dose: 100 mg Lisinopril (Zestril) 5 mg PO DAILY [facility] Last Admin: 08/11/15 09:48 Dose: 5 mg Phenytoin (Dilantin) 100 mg PEG TID [facility] Last Admin: 08/11/15 14:16 Dose: 100 mg Polyethylene Glycol (Miralax) 17 gm PEG BID [facility] Last Admin: 08/11/15 09:47 Dose: 17 gm - Labs Labs (last 24 hours): Laboratory Results - last 24 hr 08/11/15 07:37 WBC 12.7 H RBC 3.59 L Hgb 11.2 L Hct 33.5 L MCV 93.3 MCH 31.3 H MCHC 33.5 RDW 15.2 H Plt Count 284 MPV 8.6 Neut % (Auto) 75.1 H Lymph % (Auto) 10.2 L Rains % (Auto) 7.7 Eos % (Auto) 6.0 H Baso % (Auto) 1.0 Neut # 9.5 H Lymph # 1.3 Rains # 1.0 H Eos # 0.8 H Baso # 0.1 Differential Comment Sodium 138 Potassium 4.3 Chloride 103 Carbon Dioxide 25 Anion Gap 14 BUN 19 Creatinine 0.5 L Est GFR ( Amer) > 60 Est GFR (Non-Af Amer) > 60 Random Glucose 112 H Calcium 8.7 Phosphorus 4.4 Magnesium 2.2 Total Bilirubin 0.5 AST 59 ALT 124 H Alkaline Phosphatase 153 H Total Protein 7.2 Albumin 3.3 L Globulin 3.9 Albumin/Globulin Ratio 0.8 L - Constitutional Appears: No Acute Distress, Chronically Ill - Head Exam Head Exam: ATRAUMATIC, NORMOCEPHALIC - ENT Exam ENT Exam: Mucous Membranes Moist Additional comments: trach in place - Respiratory Exam Respiratory Exam: absent: Decreased Breath Sounds, Rales, Wheezes Additional comments: coarse breath sounds - Cardiovascular Exam Cardiovascular Exam: REGULAR RHYTHM, +S1, +S2. absent: Diastolic murmur, Gallop , Rubs, Systolic Murmur - GI/Abdominal Exam GI & Abdominal Exam: Normal Bowel Sounds, Soft. absent: Distended Additional comments: PeG in place - Extremities Exam Extremities exam: pedal pulses present Additional comments: RUE with edema - Neurological Exam Neurological exam: absent: Alert, Oriented x3 Additional comments: patient unresponsive to verbal and painful stimuli patient aphasic - Skin Skin Exam: Dry, Warm Assessment/Plan (1) Respiratory failure Current Visit: Yes Status: Acute Comment: Dr. Salgado (pul) on case-help appreciated Patient on trach SIMV (PRVC) + pressure support: wean as tolerated Monitor (2) Anoxic encephalopathy Current Visit: Yes Status: Acute Comment: Patient unresponsive to verbal and painful stimuli Patient with spontaneous movements Monitor (3) Cardiac arrest Current Visit: Yes Status: Acute Comment: s/p V-Tach arrest Continue Plavix 75mg PO daily Continue Lisinopril 5mg Po daily Continue ASA 325mg PO daily (4) STEMI (ST elevation myocardial infarction) Current Visit: Yes Status: Acute Comment: Continue Plavix 75mg PO daily Continue ASA 325mg PO daily Continue Lisinopril 5mg PO daily s/p stenting (5) CAD (coronary artery disease) Current Visit: Yes Status: Acute Comment: Continue Lisinopril 5mg PO daily Continue Plavix 75mg PO daily Continue ASA 325mg PO daily (6) Chest congestion Current Visit: Yes Status: Acute Comment: Sputum culture (07/28) with Pseudomonas aeruginosa s/p treatment Dr. Armstrong on case-help appreciated patient afebrile Monitor (7) Edema of upper extremity Current Visit: Yes Status: Acute Comment: Venous doppler (07/19) - thrombosis of right cephalic vein (superficial) - please see official report Warm compresses Monitor (8) Transaminitis Current Visit: Yes Status: Acute Comment: ALT and alk phos elevated Hep panel negative Monitor LFTs (9) Seizures Current Visit: Yes Status: Acute Comment: Continue dilantin 100mg via PEG TID Monitor for seizure activity (10) Prophylactic measure Current Visit: Yes Status: Acute Comment: Scds Miralax - Date & Time Date: 08/11/15 Time: 17:23
[2015-08-11 08:01] LABS: BASO # 0.1 K/uL (0.0-0.2); EOS # 0.8 K/uL (0.0-0.7); HEMOGLOBIN 11.2 g/dL (12.0-18.0); LYMPH # 1.3 K/uL (1.0-4.3); LYMPH % 10.2 % (20.0-40.0); MEAN CELL VOLUME 93.3 fL (80.0-94.0); MEAN CORPUSCULAR HEMOGLOBIN 31.3 pg (27.0-31.0); MEAN CORPUSCULAR HGB CONC 33.5 g/dL (33.0-37.0); MEAN PLATELET VOLUME 8.6 fL (7.2-11.7); MONO % 7.7 % (0.0-10.0); NEUT # 9.5 K/uL (1.8-7.0); NEUT % 75.1 % (50.0-75.0); NRBC % 0.1 % (0.0-2.0); RBC 3.59 Mil/uL (4.40-5.90); RED CELL DISTRIBUTION WIDTH 15.2 % (11.5-14.5); WHITE BLOOD COUNT 12.7 K/uL (4.8-10.8)
[2015-08-11 09:26] LABS: ALBUMIN 3.3 g/dL (3.5-5.0)
[2015-08-11 09:29] LABS: ALB/GLOB RATIO 0.8 (1.0-2.1); AST/SGOT 59 U/L (17-59); GFR NON-AFRICAN AMERICAN > 60
[2015-08-11 09:30] LABS: ALT/SGPT 124 U/L (21-72); BLOOD UREA NITROGEN 19 mg/dL (9-20); CALCIUM 8.7 mg/dL (8.4-10.2)
[2015-08-11] MEDS: POLYETHYLENE GLYCOL 3350 17 GM/Dose PACKET PEG SCH ×2 (09:47→18:00)
[2015-08-11] MEDS: Phenytoin 100 mg/4 ml Oral Susp UD PEG SCH ×3 (09:47→17:39)
--- NOTE | 2015-08-12 04:28 | CP.PCM.PN ---
<Lauri Araya - Last Filed: 08/12/15 04:25> Subjective - Subjective Subjective: Pt was seen and examined at bedside Pt was awoken from sleep, nonresponsive to verbal stimuli. opened eyes with physical stimulus. Pt appeared to have moved feet with tapping over medial malleolus, alternating feet coinciding with alternating tapping. Pt unable to give ROS due to unaltered mental status Review of Systems - Review of Systems Systems not reviewed;Unavailable: Altered Mental Status Objective - Vital Signs/Intake and Output Vital Signs (last 24 hours): Vital Signs - 24 hr 08/11/15 08/11/15 05:33 13:49 Temperature 98.4 F 98.2 F Pulse Rate 81 65 Respiratory 20 20 Rate Blood Pressure 108/74 106/79 O2 Sat by Pulse 100 94 L Oximetry Intake and Output (last 12 hours): Intake & Output 08/11/15 08/11/15 08/12/15 06:59 18:59 06:59 Intake Total 820 Output Total 2400 500 Balance -1580 -500 Weight 105 lb Intake: Tube Feeding 720 Other 100 Output: Urine 2400 500 Urethral (Yoo) 2400 500 - Medications Medications: Current Medications Aspirin (Aspirin) 325 mg PO DAILY [facility] Last Admin: 08/11/15 09:48 Dose: 325 mg Clopidogrel Bisulfate (Plavix) 75 mg PO DAILY [facility] Last Admin: 08/11/15 09:47 Dose: 75 mg Docusate Sodium (Colace Liquid) 100 mg PO DAILY [facility] Last Admin: 08/11/15 09:47 Dose: 100 mg Lisinopril (Zestril) 5 mg PO DAILY [facility] Last Admin: 08/11/15 09:48 Dose: 5 mg Phenytoin (Dilantin) 100 mg PEG TID [facility] Last Admin: 08/11/15 17:39 Dose: 100 mg Polyethylene Glycol (Miralax) 17 gm PEG BID [facility] Last Admin: 08/11/15 18:00 Dose: Not Given - Labs Labs (last 24 hours): Laboratory Results - last 24 hr 08/11/15 07:37 WBC 12.7 H RBC 3.59 L Hgb 11.2 L Hct 33.5 L MCV 93.3 MCH 31.3 H MCHC 33.5 RDW 15.2 H Plt Count 284 MPV 8.6 Neut % (Auto) 75.1 H Lymph % (Auto) 10.2 L [place] % (Auto) 7.7 Eos % (Auto) 6.0 H Baso % (Auto) 1.0 Neut # 9.5 H Lymph # 1.3 [place] # 1.0 H Eos # 0.8 H Baso # 0.1 Differential Comment Sodium 138 Potassium 4.3 Chloride 103 Carbon Dioxide 25 Anion Gap 14 BUN 19 Creatinine 0.5 L Est GFR ( Amer) > 60 Est GFR (Non-Af Amer) > 60 Random Glucose 112 H Calcium 8.7 Phosphorus 4.4 Magnesium 2.2 Total Bilirubin 0.5 AST 59 ALT 124 H Alkaline Phosphatase 153 H Total Protein 7.2 Albumin 3.3 L Globulin 3.9 Albumin/Globulin Ratio 0.8 L - Constitutional Appears: Non-toxic, No Acute Distress, Chronically Ill - Head Exam Head Exam: ATRAUMATIC, NORMAL INSPECTION, NORMOCEPHALIC - Eye Exam Pupil Exam: NORMAL ACCOMODATION, PERRL - ENT Exam ENT Exam: Mucous Membranes Moist - Respiratory Exam Respiratory Exam: Clear to PA & Lateral, NORMAL BREATHING PATTERN, UNREMARKABLE. absent: Rales, Rhonchi, Wheezes - Cardiovascular Exam Cardiovascular Exam: REGULAR RHYTHM, +S1, +S2 - GI/Abdominal Exam GI & Abdominal Exam: Normal Bowel Sounds, Soft, Unremarkable. absent: Distended , Firm, Tenderness - Extremities Exam Extremities exam: normal capillary refill, pedal pulses present. absent: pedal edema - Neurological Exam Neurological exam: Altered - Psychiatric Exam Psychiatric exam: absent: Normal Affect, Normal Mood - Skin Skin Exam: Dry, Intact, Normal Color, Warm Assessment/Plan (1) Anoxic encephalopathy Current Visit: Yes Status: Acute Comment: Patient unresponsive to verbal stimuli Pt appeared to have reacted to tapping of malleolus, movement of feet corresponding to appropriate side Patient with spontaneous movements Monitor (2) Cardiac arrest Current Visit: Yes Status: Acute Comment: s/p V-Tach arrest Continue Plavix 75mg PO daily Continue Lisinopril 5mg Po daily Continue ASA 325mg PO daily (3) Chest congestion Current Visit: Yes Status: Acute Comment: Sputum culture (07/28) with Pseudomonas aeruginosa s/p treatment Dr. Armstrong on case-help appreciated patient afebrile Monitor (4) Edema of upper extremity Current Visit: Yes Status: Acute Comment: Venous doppler (07/19) - thrombosis of right cephalic vein (superficial) - please see official report Warm compresses Monitor (5) Respiratory failure Current Visit: Yes Status: Acute Comment: Dr. Salgado (pulm) on case-help appreciated Patient on trach SIMV (PRVC) + pressure support: wean as tolerated Monitor (6) STEMI (ST elevation myocardial infarction) Current Visit: Yes Status: Acute Comment: Continue Plavix 75mg PO daily Continue ASA 325mg PO daily Continue Lisinopril 5mg PO daily s/p stenting (7) Seizures Current Visit: Yes Status: Acute Comment: Continue dilantin 100mg via PEG TID Monitor for seizure activity (8) Thrombophlebitis of superficial veins of upper extremities Current Visit: Yes Status: Acute Comment: Venous doppler (07/19) prelim report - thrombosis of right cephalic vein (superficial) Shows Abnormality Lovenox 40mg SC daily Warm compresses to area 15 minutes, 3x a day f/u final venous doppler report (9) Transaminitis Current Visit: Yes Status: Acute Comment: ALT and alk phos elevated Hep panel negative Monitor LFTs (10) UTI (lower urinary tract infection) Current Visit: Yes Status: Acute Comment: Urine Cx (07/28): neg UA (07/28): shows no WBC or Leuk esterases Urine CX (07/18): Coag neg staph (positive for Pseudomonas in past) IV Cefepime 1gm q12h started 07/21 and completed 07/26. (11) Bed sore Current Visit: Yes Status: Acute Comment: 08/09- stage one ulcer, healed, per nursing. continue repositioning of patient q2H dolphin mattress (12) Prophylactic measure Current Visit: Yes Status: Acute Comment: Scds Miralax <Wendi Mercedes R - Last Filed: 08/13/15 20:42> Subjective - Subjective Subjective: Medical Attending Note: Patient seen and examined by me 08/12/15. Agree with resident HPI/Exam/A&P with appropriate additions and changes. All new labs reviewed by me. Patient aphasic. Does not respond to verbal stimuli. Did not respond to painful stimuli during my exam. Unable to obtain review of systems from patient. Patient afebrile. Objective - Vital Signs/Intake and Output Vital Signs (last 24 hours): Vital Signs - 24 hr 08/12/15 08/13/15 08/13/15 20:46 05:37 14:03 Temperature 98.9 F 97.6 F 97.7 F Pulse Rate 88 78 72 Respiratory 18 20 15 Rate Blood Pressure 106/73 134/80 113/69 O2 Sat by Pulse 100 100 Oximetry Intake and Output (last 12 hours): Intake & Output 08/13/15 08/13/15 08/14/15 06:59 18:59 06:59 Output Total 600 Balance -600 Weight 104 lb Output: Urine 600 Urethral (Yoo) 600 - Medications Medications: Current Medications Aspirin (Aspirin) 325 mg PO DAILY [facility] Last Admin: 08/13/15 10:56 Dose: 325 mg Clopidogrel Bisulfate (Plavix) 75 mg PO DAILY [facility] Last Admin: 08/13/15 10:56 Dose: 75 mg Docusate Sodium (Colace Liquid) 100 mg PO DAILY [facility] Last Admin: 08/13/15 10:56 Dose: 100 mg Lisinopril (Zestril) 5 mg PO DAILY [facility] Last Admin: 08/13/15 10:56 Dose: 5 mg Phenytoin (Dilantin) 100 mg PEG TID [facility] Last Admin: 08/13/15 17:39 Dose: 100 mg Polyethylene Glycol (Miralax) 17 gm PEG BID [facility] Last Admin: 08/13/15 17:39 Dose: 17 gm - Constitutional Appears: No Acute Distress, Chronically Ill - Head Exam Head Exam: ATRAUMATIC, NORMOCEPHALIC - ENT Exam ENT Exam: Mucous Membranes Moist - Neck Exam Additional comments: trach in place - Respiratory Exam Respiratory Exam: absent: Rales, Rhonchi, Wheezes - Cardiovascular Exam Cardiovascular Exam: REGULAR RHYTHM, +S1, +S2. absent: Diastolic murmur, Gallop , Rubs, Systolic Murmur - GI/Abdominal Exam GI & Abdominal Exam: Normal Bowel Sounds, Soft. absent: Distended Additional comments: PEG in place - Extremities Exam Extremities exam: pedal pulses present Additional comments: RUE with edema - Neurological Exam Additional comments: Patient not responsive to verbal stimuli. Patient with spontaneous movements. - Skin Skin Exam: Dry, Warm Assessment/Plan (1) Respiratory failure Current Visit: Yes Status: Acute Comment: Dr. Salgado (pulm) on case-help appreciated Patient on trach SIMV Monitor (2) Anoxic encephalopathy Current Visit: Yes Status: Acute Comment: Patient unresponsive to verbal stimuli Patient with spontaneous movements trach and PEG in place Monitor (3) Cardiac arrest Current Visit: Yes Status: Acute Comment: s/p V-Tach arrest Continue Plavix 75mg PO daily Continue ASA 325mg PO daily Continue Lisinopril 5mg PO daily (4) STEMI (ST elevation myocardial infarction) Current Visit: Yes Status: Acute Comment: Continue Lisinopril 5mg PO daily Continue Plavix 75mg PO daily Continue ASA 325mg PO daily s/p stenting (5) CAD (coronary artery disease) Current Visit: Yes Status: Acute Comment: Continue Lisinopril 5mg PO daily Continue ASA 325mg PO daily Continue Plavix 75mg PO daily (6) Chest congestion Current Visit: Yes Status: Acute Comment: Sputum culture (07/28/15) with Pseudomonas aeruginosa s/p treatment Dr. Armstrong on case-help appreciated patient afebrile (7) Edema of upper extremity Current Visit: Yes Status: Acute Comment: Venous doppler (07/19) - thrombosis of right cephalic vein (superficial) - please see official report Continue warm compresses Monitor (8) Transaminitis Current Visit: Yes Status: Acute Comment: ALT and AlK phos elevated Hep panel negative Continue to monitor LFTs (9) Seizures Current Visit: Yes Status: Acute Comment: Continue dilantin 100mg via PEG TID Continue to monitor for seizure activity (10) Prophylactic measure Current Visit: Yes Status: Acute Comment: Sulaiman Caraballo Attending/Attestation - Attestation I have personally seen and examined this patient.: Yes I have fully participated in the care of the patient.: Yes I have reviewed all pertinent clinical information: Yes
[2015-08-12 08:02] LABS: BASO % 0.3 % (0.0-2.0); EOS # 0.7 K/uL (0.0-0.7); EOS % 6.8 % (0.0-4.0); HEMOGLOBIN 11.5 g/dL (12.0-18.0); LYMPH # 1.3 K/uL (1.0-4.3); LYMPH % 12.3 % (20.0-40.0); MEAN CELL VOLUME 93.2 fL (80.0-94.0); MEAN CORPUSCULAR HEMOGLOBIN 31.5 pg (27.0-31.0); MEAN CORPUSCULAR HGB CONC 33.8 g/dL (33.0-37.0); MEAN PLATELET VOLUME 8.7 fL (7.2-11.7); MONO # 0.9 K/uL (0.0-0.8); MONO % 8.8 % (0.0-10.0); NEUT # 7.4 K/uL (1.8-7.0); NEUT % 71.8 % (50.0-75.0); RBC 3.64 Mil/uL (4.40-5.90); RED CELL DISTRIBUTION WIDTH 15.2 % (11.5-14.5); WHITE BLOOD COUNT 10.4 K/uL (4.8-10.8)
[2015-08-12 08:26] LABS: ALBUMIN 3.2 g/dL (3.5-5.0)
[2015-08-12 08:28] LABS: GFR NON-AFRICAN AMERICAN > 60
[2015-08-12 08:29] LABS: ALB/GLOB RATIO 0.8 (1.0-2.1); ALT/SGPT 131 U/L (21-72); AST/SGOT 70 U/L (17-59); BLOOD UREA NITROGEN 22 mg/dL (9-20); CALCIUM 8.6 mg/dL (8.4-10.2)
[2015-08-12] MEDS: POLYETHYLENE GLYCOL 3350 17 GM/Dose PACKET PEG SCH ×2 (11:29→18:46)
[2015-08-12] MEDS: Phenytoin 100 mg/4 ml Oral Susp UD PEG SCH ×3 (11:29→18:12)
[2015-08-13] MEDS: Phenytoin 100 mg/4 ml Oral Susp UD PEG SCH ×3 (10:55→17:39)
[2015-08-13] MEDS: POLYETHYLENE GLYCOL 3350 17 GM/Dose PACKET PEG SCH ×2 (10:56→17:39)
--- NOTE | 2015-08-13 20:30 | CP.PCM.PN ---
<Lauri Araya - Last Filed: 08/13/15 20:37> Subjective - Subjective Subjective: Pt was seen and examined at bedside Pt unable to give ROS due to altered mental status No acute events overnight Pt was awakened from sleep, non responsive to verbal or physical stimuli Review of Systems - Review of Systems Systems not reviewed;Unavailable: Altered Mental Status Objective - Vital Signs/Intake and Output Vital Signs (last 24 hours): Vital Signs - 24 hr 08/12/15 08/13/15 08/13/15 20:46 05:37 14:03 Temperature 98.9 F 97.6 F 97.7 F Pulse Rate 88 78 72 Respiratory 18 20 15 Rate Blood Pressure 106/73 134/80 113/69 O2 Sat by Pulse 100 100 Oximetry Intake and Output (last 12 hours): Intake & Output 08/13/15 08/13/15 08/14/15 06:59 18:59 06:59 Output Total 600 Balance -600 Weight 104 lb Output: Urine 600 Urethral (Yoo) 600 - Medications Medications: Current Medications Aspirin (Aspirin) 325 mg PO DAILY [facility] Last Admin: 08/13/15 10:56 Dose: 325 mg Clopidogrel Bisulfate (Plavix) 75 mg PO DAILY [facility] Last Admin: 08/13/15 10:56 Dose: 75 mg Docusate Sodium (Colace Liquid) 100 mg PO DAILY [facility] Last Admin: 08/13/15 10:56 Dose: 100 mg Lisinopril (Zestril) 5 mg PO DAILY [facility] Last Admin: 08/13/15 10:56 Dose: 5 mg Phenytoin (Dilantin) 100 mg PEG TID [facility] Last Admin: 08/13/15 17:39 Dose: 100 mg Polyethylene Glycol (Miralax) 17 gm PEG BID [facility] Last Admin: 08/13/15 17:39 Dose: 17 gm - Constitutional Appears: No Acute Distress, Chronically Ill - Head Exam Head Exam: ATRAUMATIC, NORMAL INSPECTION, NORMOCEPHALIC - Eye Exam Pupil Exam: NORMAL ACCOMODATION, PERRL - ENT Exam ENT Exam: Mucous Membranes Dry - Respiratory Exam Respiratory Exam: Clear to PA & Lateral, NORMAL BREATHING PATTERN, UNREMARKABLE. absent: Rales, Rhonchi, Wheezes - Cardiovascular Exam Cardiovascular Exam: REGULAR RHYTHM, +S1, +S2 - GI/Abdominal Exam GI & Abdominal Exam: Normal Bowel Sounds, Soft, Unremarkable. absent: Distended , Firm, Tenderness - Extremities Exam Extremities exam: normal capillary refill, pedal pulses present - Neurological Exam Neurological exam: Alert, Oriented x3 - Psychiatric Exam Psychiatric exam: absent: Normal Affect, Normal Mood - Skin Skin Exam: Dry, Intact, Normal Color, Warm Assessment/Plan (1) Anoxic encephalopathy Current Visit: No (2) Cardiac arrest Current Visit: No (3) Chest congestion Current Visit: No (4) Edema of upper extremity Current Visit: No (5) Respiratory failure Current Visit: No (6) STEMI (ST elevation myocardial infarction) Current Visit: No (7) Seizures Current Visit: No (8) Thrombophlebitis of superficial veins of upper extremities Current Visit: No (9) Transaminitis Current Visit: No (10) UTI (lower urinary tract infection) Current Visit: No (11) Bed sore Current Visit: No (12) Prophylactic measure Current Visit: No <Rashel Rodrigues - Last Filed: 08/13/15 23:19> Objective - Vital Signs/Intake and Output Vital Signs (last 24 hours): Vital Signs - 24 hr 08/13/15 08/13/15 08/13/15 05:37 11:00 14:03 Temperature 97.6 F 98.7 F 97.7 F Pulse Rate 78 72 72 Respiratory 20 20 15 Rate Blood Pressure 134/80 108/76 113/69 O2 Sat by Pulse 100 100 Oximetry 08/13/15 08/13/15 20:00 21:55 Temperature 98.0 F Pulse Rate 72 82 Respiratory 20 Rate Blood Pressure 96/66 L O2 Sat by Pulse 100 Oximetry Intake and Output (last 12 hours): Intake & Output 08/13/15 08/13/15 08/14/15 06:59 18:59 06:59 Intake Total 1020 Output Total 600 600 Balance -600 420 Weight 104 lb Intake: Tube Feeding 720 Other 300 Output: Gastric Amount 0 Stomach 0 Urine 600 600 Urethral (Yoo) 600 600 Other: # Bowel Movements 1 - Medications Medications: Current Medications Aspirin (Aspirin) 325 mg PO DAILY [facility] Last Admin: 08/13/15 10:56 Dose: 325 mg Clopidogrel Bisulfate (Plavix) 75 mg PO DAILY [facility] Last Admin: 08/13/15 10:56 Dose: 75 mg Docusate Sodium (Colace Liquid) 100 mg PO DAILY [facility] Last Admin: 08/13/15 10:56 Dose: 100 mg Lisinopril (Zestril) 5 mg PO DAILY [facility] Last Admin: 08/13/15 10:56 Dose: 5 mg Phenytoin (Dilantin) 100 mg PEG TID [facility] Last Admin: 08/13/15 17:39 Dose: 100 mg Polyethylene Glycol (Miralax) 17 gm PEG BID [facility] Last Admin: 08/13/15 17:39 Dose: 17 gm Attending/Attestation - Attestation I have personally seen and examined this patient.: Yes I have fully participated in the care of the patient.: Yes I have reviewed all pertinent clinical information: Yes Notes (Text): 08/13/15 23:18 Patient seen and examined during round with residents pt has no new events, cont vent support and weaning as per Pulm fu labs
[2015-08-14] MEDS: POLYETHYLENE GLYCOL 3350 17 GM/Dose PACKET PEG SCH ×2 (10:10→17:00)
[2015-08-14] MEDS: Phenytoin 100 mg/4 ml Oral Susp UD PEG SCH ×3 (10:11→17:00)
[2015-08-14 11:38] LABS: BASO # 0.1 K/uL (0.0-0.2); BASO % 0.6 % (0.0-2.0); EOS # 0.7 K/uL (0.0-0.7); HEMOGLOBIN 11.1 g/dL (12.0-18.0); LYMPH # 1.2 K/uL (1.0-4.3); MEAN CELL VOLUME 93.3 fL (80.0-94.0); MEAN CORPUSCULAR HEMOGLOBIN 30.7 pg (27.0-31.0); MEAN CORPUSCULAR HGB CONC 32.9 g/dL (33.0-37.0); MEAN PLATELET VOLUME 8.4 fL (7.2-11.7); MONO # 1.1 K/uL (0.0-0.8); MONO % 8.2 % (0.0-10.0); NEUT # 10.1 K/uL (1.8-7.0); NEUT % 77.2 % (50.0-75.0); PLATELET COUNT 286 K/uL (130-400); RBC 3.61 Mil/uL (4.40-5.90); RED CELL DISTRIBUTION WIDTH 14.7 % (11.5-14.5); WHITE BLOOD COUNT 13.1 K/uL (4.8-10.8)
[2015-08-14 11:57] LABS: ALBUMIN 3.2 g/dL (3.5-5.0)
[2015-08-14 12:00] LABS: ALB/GLOB RATIO 0.9 (1.0-2.1); ALT/SGPT 132 U/L (21-72); AST/SGOT 58 U/L (17-59); BLOOD UREA NITROGEN 20 mg/dL (9-20); GFR NON-AFRICAN AMERICAN > 60
[2015-08-14 12:01] LABS: CALCIUM 8.3 mg/dL (8.4-10.2)
[2015-08-14 12:02] LABS: BANDS 4 % (0-0); BASOPHIL 1 % (0-2); EOSINOPHIL 3 % (0-4); LYMPHOCYTE 10 % (20-40); MONOCYTE 6 % (0-10); NEUTROPHIL 76 % (50-75); PLATELET ESTIMATE NORMAL (NORMAL); TOTAL CELLS COUNTED 100
--- NOTE | 2015-08-14 16:07 | CP.PCM.PN ---
<Lauri Araya - Last Filed: 08/14/15 16:05> Subjective - Subjective Subjective: Pt was seen and examined at bedside. Pt was awake, unresponsive to verbal or physical stimulus. Unable to obtain ROS due to altered mental status. Spontaneous yawn and occasional movement of UE and LE Review of Systems - Review of Systems Systems not reviewed;Unavailable: Altered Mental Status Objective - Vital Signs/Intake and Output Vital Signs (last 24 hours): Vital Signs - 24 hr 08/13/15 08/13/15 08/14/15 20:00 21:55 05:20 Temperature 98.0 F 97.2 F L Pulse Rate 72 82 78 Respiratory 20 18 Rate Blood Pressure 96/66 L 121/67 O2 Sat by Pulse 100 100 Oximetry 08/14/15 08/14/15 10:06 14:00 Temperature 99.3 F 97.1 F L Pulse Rate 86 86 Respiratory 12 20 Rate Blood Pressure 108/73 106/74 O2 Sat by Pulse 100 100 Oximetry Intake and Output (last 12 hours): Intake & Output 08/13/15 08/14/15 08/14/15 18:59 06:59 18:59 Intake Total 1940 Output Total 800 450 Balance 1140 -450 Intake: Tube Feeding 1440 Other 500 Output: Gastric Amount 0 Stomach 0 Urine 800 450 Urethral (Yoo) 800 450 Other: # Bowel Movements 0 1 - Medications Medications: Current Medications Aspirin (Aspirin) 325 mg PO DAILY [facility] Last Admin: 08/14/15 10:11 Dose: 325 mg Clopidogrel Bisulfate (Plavix) 75 mg PO DAILY [facility] Last Admin: 08/14/15 10:11 Dose: 75 mg Docusate Sodium (Colace Liquid) 100 mg PO DAILY [facility] Last Admin: 08/14/15 10:11 Dose: 100 mg Lisinopril (Zestril) 5 mg PO DAILY [facility] Last Admin: 08/14/15 10:11 Dose: 5 mg Phenytoin (Dilantin) 100 mg PEG TID [facility] Last Admin: 08/14/15 13:29 Dose: 100 mg Polyethylene Glycol (Miralax) 17 gm PEG BID [facility] Last Admin: 08/14/15 10:10 Dose: 17 gm - Labs Labs (last 24 hours): Laboratory Results - last 24 hr 08/14/15 11:22 WBC 13.1 H RBC 3.61 L Hgb 11.1 L Hct 33.6 L MCV 93.3 MCH 30.7 MCHC 32.9 L RDW 14.7 H Plt Count 286 MPV 8.4 Neut % (Auto) 77.2 H Lymph % (Auto) 9.0 L [place] % (Auto) 8.2 Eos % (Auto) 5.0 H Baso % (Auto) 0.6 Neut # 10.1 H Lymph # 1.2 [place] # 1.1 H Eos # 0.7 Baso # 0.1 Neutrophils % (Manual) 76 H Band Neutrophils % 4 H Lymphocytes % (Manual) 10 L Monocytes % (Manual) 6 Eosinophils % (Manual) 3 Basophils % (Manual) 1 Platelet Estimate Normal RBC Morphology Normal Sodium 137 Potassium 4.2 Chloride 100 Carbon Dioxide 28 Anion Gap 12 BUN 20 Creatinine 0.4 L Est GFR ( Amer) > 60 Est GFR (Non-Af Amer) > 60 Random Glucose 106 Calcium 8.3 L Total Bilirubin 0.4 AST 58 ALT 132 H Alkaline Phosphatase 147 H Total Protein 6.9 Albumin 3.2 L Globulin 3.7 Albumin/Globulin Ratio 0.9 L - Constitutional Appears: Well, Non-toxic, No Acute Distress - Head Exam Head Exam: ATRAUMATIC, NORMAL INSPECTION, NORMOCEPHALIC - Eye Exam Pupil Exam: NORMAL ACCOMODATION, PERRL - ENT Exam ENT Exam: Mucous Membranes Moist - Respiratory Exam Respiratory Exam: Clear to PA & Lateral, NORMAL BREATHING PATTERN, UNREMARKABLE. absent: Rales, Rhonchi, Wheezes - Cardiovascular Exam Cardiovascular Exam: REGULAR RHYTHM, +S1, +S2 - GI/Abdominal Exam GI & Abdominal Exam: Normal Bowel Sounds, Soft, Unremarkable. absent: Tenderness - Extremities Exam Extremities exam: normal capillary refill, pedal pulses present - Neurological Exam Neurological exam: Altered. absent: Alert, Oriented x3 - Psychiatric Exam Psychiatric exam: absent: Normal Affect, Normal Mood - Skin Skin Exam: Dry, Intact, Normal Color, Warm Assessment/Plan (1) Anoxic encephalopathy Current Visit: Yes Status: Acute Comment: Patient unresponsive to verbal stimuli Patient with spontaneous movements trach and PEG in place 08/14/15- Per Dr. Salgado, he is on SIMV mode of the ventilation and still has apnea. Unable to wean him more. Monitor (2) Cardiac arrest Current Visit: Yes Status: Acute Comment: s/p V-Tach arrest Continue Plavix 75mg PO daily Continue ASA 325mg PO daily Continue Lisinopril 5mg PO daily (3) Chest congestion Current Visit: Yes Status: Acute Comment: Sputum culture (07/28/15) with Pseudomonas aeruginosa s/p treatment Dr. Armstrong on case-help appreciated patient afebrile (4) Edema of upper extremity Current Visit: Yes Status: Acute Comment: Venous doppler (07/19) - thrombosis of right cephalic vein (superficial) - please see official report Continue warm compresses Monitor (5) Respiratory failure Current Visit: Yes Status: Acute Comment: Dr. Salgado (pulm) on case-help appreciated Patient on trach SIMV Monitor (6) STEMI (ST elevation myocardial infarction) Current Visit: Yes Status: Acute Comment: Continue Lisinopril 5mg PO daily Continue Plavix 75mg PO daily Continue ASA 325mg PO daily s/p stenting (7) Seizures Current Visit: Yes Status: Acute Comment: Continue dilantin 100mg via PEG TID Continue to monitor for seizure activity (8) Thrombophlebitis of superficial veins of upper extremities Current Visit: Yes Status: Acute Comment: Venous doppler (07/19) prelim report - thrombosis of right cephalic vein (superficial) Shows Abnormality Lovenox 40mg SC daily Warm compresses to area 15 minutes, 3x a day f/u final venous doppler report (9) Transaminitis Current Visit: Yes Status: Acute Comment: ALT and AlK phos elevated Hep panel negative Continue to monitor LFTs (10) UTI (lower urinary tract infection) Current Visit: Yes Status: Acute Comment: Urine Cx (07/28): neg UA (07/28): shows no WBC or Leuk esterases Urine CX (07/18): Coag neg staph (positive for Pseudomonas in past) IV Cefepime 1gm q12h started 07/21 and completed 07/26. (11) Bed sore Current Visit: Yes Status: Acute Comment: 08/09- stage one ulcer, healed, per nursing. continue repositioning of patient q2H dolphin mattress (12) Prophylactic measure Current Visit: Yes Status: Acute Comment: Scds Miralax <Nyunt,Rashel - Last Filed: 08/14/15 18:09> Objective - Vital Signs/Intake and Output Vital Signs (last 24 hours): Vital Signs - 24 hr 08/13/15 08/13/15 08/14/15 20:00 21:55 05:20 Temperature 98.0 F 97.2 F L Pulse Rate 72 82 78 Respiratory 20 18 Rate Blood Pressure 96/66 L 121/67 O2 Sat by Pulse 100 100 Oximetry 08/14/15 08/14/15 10:06 14:00 Temperature 99.3 F 97.1 F L Pulse Rate 86 86 Respiratory 12 20 Rate Blood Pressure 108/73 106/74 O2 Sat by Pulse 100 100 Oximetry Intake and Output (last 12 hours): Intake & Output 08/13/15 08/14/15 08/14/15 18:59 06:59 18:59 Intake Total 1940 Output Total 800 450 Balance 1140 -450 Intake: Tube Feeding 1440 Other 500 Output: Gastric Amount 0 Stomach 0 Urine 800 450 Urethral (Yoo) 800 450 Other: # Bowel Movements 0 1 - Medications Medications: Current Medications Aspirin (Aspirin) 325 mg PO DAILY [facility] Last Admin: 08/14/15 10:11 Dose: 325 mg Clopidogrel Bisulfate (Plavix) 75 mg PO DAILY [facility] Last Admin: 08/14/15 10:11 Dose: 75 mg Docusate Sodium (Colace Liquid) 100 mg PO DAILY [facility] Last Admin: 08/14/15 10:11 Dose: 100 mg Lisinopril (Zestril) 5 mg PO DAILY [facility] Last Admin: 08/14/15 10:11 Dose: 5 mg Phenytoin (Dilantin) 100 mg PEG TID [facility] Last Admin: 08/14/15 17:00 Dose: 100 mg Polyethylene Glycol (Miralax) 17 gm PEG BID [facility] Last Admin: 08/14/15 17:00 Dose: 17 gm - Labs Labs (last 24 hours): Laboratory Results - last 24 hr 08/14/15 11:22 WBC 13.1 H RBC 3.61 L Hgb 11.1 L Hct 33.6 L MCV 93.3 MCH 30.7 MCHC 32.9 L RDW 14.7 H Plt Count 286 MPV 8.4 Neut % (Auto) 77.2 H Lymph % (Auto) 9.0 L [place] % (Auto) 8.2 Eos % (Auto) 5.0 H Baso % (Auto) 0.6 Neut # 10.1 H Lymph # 1.2 [place] # 1.1 H Eos # 0.7 Baso # 0.1 Neutrophils % (Manual) 76 H Band Neutrophils % 4 H Lymphocytes % (Manual) 10 L Monocytes % (Manual) 6 Eosinophils % (Manual) 3 Basophils % (Manual) 1 Platelet Estimate Normal RBC Morphology Normal Sodium 137 Potassium 4.2 Chloride 100 Carbon Dioxide 28 Anion Gap 12 BUN 20 Creatinine 0.4 L Est GFR ( Amer) > 60 Est GFR (Non-Af Amer) > 60 Random Glucose 106 Calcium 8.3 L Total Bilirubin 0.4 AST 58 ALT 132 H Alkaline Phosphatase 147 H Total Protein 6.9 Albumin 3.2 L Globulin 3.7 Albumin/Globulin Ratio 0.9 L Attending/Attestation - Attestation I have personally seen and examined this patient.: Yes I have fully participated in the care of the patient.: Yes I have reviewed all pertinent clinical information: Yes Notes (Text): 08/14/15 18:08 Patient seen and examined during round with residents DW Pulm and pt is not able to be weaned cont supportive mx
[2015-08-15] MEDS: Phenytoin 100 mg/4 ml Oral Susp UD PEG SCH ×3 (11:02→18:18)
[2015-08-15] MEDS: POLYETHYLENE GLYCOL 3350 17 GM/Dose PACKET PEG SCH ×2 (11:04→18:18)
--- NOTE | 2015-08-15 15:02 | CP.PCM.PN ---
<Lauri Araya - Last Filed: 08/15/15 14:58> Subjective - Subjective Subjective: Pt was seen and examined at bedside. Pt is awake, non responsive to verbal or physical stimuli Pt unable to give ROS due to altered mental status. Review of Systems - Review of Systems Systems not reviewed;Unavailable: Altered Mental Status Objective - Vital Signs/Intake and Output Vital Signs (last 24 hours): Vital Signs - 24 hr 08/14/15 08/14/15 08/15/15 20:00 21:37 05:11 Temperature 98.6 F 98.6 F Pulse Rate 78 78 81 Respiratory 20 18 Rate Blood Pressure 136/84 106/73 O2 Sat by Pulse 98 100 Oximetry 08/15/15 08:00 Temperature Pulse Rate 81 Respiratory Rate Blood Pressure O2 Sat by Pulse Oximetry Intake and Output (last 12 hours): Intake & Output 08/14/15 08/15/15 08/15/15 18:59 06:59 18:59 Intake Total 920 920 Output Total 450 757 Balance 470 163 Weight 107 lb Intake: Tube Feeding 720 720 Other 200 200 Output: Urine 450 757 Urethral (Yoo) 450 757 Other: # Bowel Movements 1 1 - Medications Medications: Current Medications Aspirin (Aspirin) 325 mg PO DAILY [facility] Last Admin: 08/15/15 11:03 Dose: 325 mg Clopidogrel Bisulfate (Plavix) 75 mg PO DAILY [facility] Last Admin: 08/15/15 11:02 Dose: 75 mg Docusate Sodium (Colace Liquid) 100 mg PO DAILY [facility] Last Admin: 08/15/15 11:02 Dose: 100 mg Lisinopril (Zestril) 5 mg PO DAILY [facility] Last Admin: 08/15/15 11:02 Dose: 5 mg Phenytoin (Dilantin) 100 mg PEG TID [facility] Last Admin: 08/15/15 13:56 Dose: 100 mg Polyethylene Glycol (Miralax) 17 gm PEG BID [facility] Last Admin: 08/15/15 11:04 Dose: Not Given - Constitutional Appears: Non-toxic, No Acute Distress, Chronically Ill - Head Exam Head Exam: ATRAUMATIC, NORMAL INSPECTION, NORMOCEPHALIC - Eye Exam Pupil Exam: NORMAL ACCOMODATION, PERRL - ENT Exam ENT Exam: Mucous Membranes Moist - Respiratory Exam Respiratory Exam: Clear to PA & Lateral, NORMAL BREATHING PATTERN (ventilator assisted), UNREMARKABLE. absent: Rales, Rhonchi, Wheezes - Cardiovascular Exam Cardiovascular Exam: REGULAR RHYTHM - GI/Abdominal Exam GI & Abdominal Exam: Normal Bowel Sounds, Soft, Unremarkable. absent: Distended , Firm, Tenderness - Extremities Exam Extremities exam: normal capillary refill, pedal pulses present - Neurological Exam Neurological exam: Altered. absent: Alert, Oriented x3 - Psychiatric Exam Psychiatric exam: absent: Normal Affect, Normal Mood - Skin Skin Exam: Dry, Intact, Normal Color, Warm Assessment/Plan (1) Anoxic encephalopathy Current Visit: Yes Status: Acute Comment: Pt status remains unchanged. Patient unresponsive to physical or verbal stimuli Patient with spontaneous movements trach and PEG in place 08/14/15- Per Dr. Salgado, he is on SIMV mode of the ventilation and still has apnea. Unable to wean him more. Monitor (2) Cardiac arrest Current Visit: Yes Status: Acute Comment: s/p V-Tach arrest Continue Plavix 75mg PO daily Continue ASA 325mg PO daily Continue Lisinopril 5mg PO daily (3) Chest congestion Current Visit: Yes Status: Acute Comment: Sputum culture (07/28/15) with Pseudomonas aeruginosa s/p treatment Dr. Armstrong on case-help appreciated patient afebrile (4) Edema of upper extremity Current Visit: Yes Status: Acute Comment: Venous doppler (07/19) - thrombosis of right cephalic vein (superficial) - please see official report Continue warm compresses Monitor (5) Respiratory failure Current Visit: Yes Status: Acute Comment: Dr. Salgado (pulm) on case-help appreciated Patient on trach SIMV Monitor (6) STEMI (ST elevation myocardial infarction) Current Visit: Yes Status: Acute Comment: Continue Lisinopril 5mg PO daily Continue Plavix 75mg PO daily Continue ASA 325mg PO daily s/p stenting (7) Seizures Current Visit: Yes Status: Acute Comment: Continue dilantin 100mg via PEG TID Continue to monitor for seizure activity (8) Thrombophlebitis of superficial veins of upper extremities Current Visit: Yes Status: Acute Comment: Venous doppler (07/19) prelim report - thrombosis of right cephalic vein (superficial) Shows Abnormality Lovenox 40mg SC daily Warm compresses to area 15 minutes, 3x a day f/u final venous doppler report (9) Transaminitis Current Visit: Yes Status: Acute Comment: ALT and AlK phos elevated Hep panel negative Continue to monitor LFTs (10) UTI (lower urinary tract infection) Current Visit: Yes Status: Acute Comment: Urine Cx (07/28): neg UA (07/28): shows no WBC or Leuk esterases Urine CX (07/18): Coag neg staph (positive for Pseudomonas in past) IV Cefepime 1gm q12h started 07/21 and completed 07/26. (11) Bed sore Current Visit: Yes Status: Acute Comment: 08/09- stage one ulcer, healed, per nursing. continue repositioning of patient q2H dolphin mattress (12) Prophylactic measure Current Visit: Yes Status: Acute Comment: Scds Miralax <Nyandra,Rashel - Last Filed: 08/15/15 16:58> Objective - Vital Signs/Intake and Output Vital Signs (last 24 hours): Vital Signs - 24 hr 08/14/15 08/14/15 08/15/15 20:00 21:37 05:11 Temperature 98.6 F 98.6 F Pulse Rate 78 78 81 Respiratory 20 18 Rate Blood Pressure 136/84 106/73 O2 Sat by Pulse 98 100 Oximetry 08/15/15 08:00 Temperature Pulse Rate 81 Respiratory Rate Blood Pressure O2 Sat by Pulse Oximetry Intake and Output (last 12 hours): Intake & Output 08/14/15 08/15/15 08/15/15 18:59 06:59 18:59 Intake Total 920 920 Output Total 450 757 Balance 470 163 Weight 107 lb Intake: Tube Feeding 720 720 Other 200 200 Output: Urine 450 757 Urethral (Yoo) 450 757 Other: # Bowel Movements 1 1 - Medications Medications: Current Medications Aspirin (Aspirin) 325 mg PO DAILY [facility] Last Admin: 08/15/15 11:03 Dose: 325 mg Clopidogrel Bisulfate (Plavix) 75 mg PO DAILY [facility] Last Admin: 08/15/15 11:02 Dose: 75 mg Docusate Sodium (Colace Liquid) 100 mg PO DAILY [facility] Last Admin: 08/15/15 11:02 Dose: 100 mg Lisinopril (Zestril) 5 mg PO DAILY [facility] Last Admin: 08/15/15 11:02 Dose: 5 mg Phenytoin (Dilantin) 100 mg PEG TID [facility] Last Admin: 08/15/15 13:56 Dose: 100 mg Polyethylene Glycol (Miralax) 17 gm PEG BID [facility] Last Admin: 08/15/15 11:04 Dose: Not Given Attending/Attestation - Attestation I have personally seen and examined this patient.: Yes I have fully participated in the care of the patient.: Yes I have reviewed all pertinent clinical information: Yes Notes (Text): 08/15/15 16:57 Patient seen and examined during round with residents no new events cont vent mx as per Pulm, cont supportive mx
[2015-08-16 08:02] LABS: BASO % 0.4 % (0.0-2.0); EOS # 0.7 K/uL (0.0-0.7); HEMOGLOBIN 11.4 g/dL (12.0-18.0); LYMPH # 0.9 K/uL (1.0-4.3); LYMPH % 8.7 % (20.0-40.0); MEAN CELL VOLUME 94.6 fL (80.0-94.0); MEAN CORPUSCULAR HEMOGLOBIN 31.7 pg (27.0-31.0); MEAN CORPUSCULAR HGB CONC 33.5 g/dL (33.0-37.0); MEAN PLATELET VOLUME 8.7 fL (7.2-11.7); MONO % 9.2 % (0.0-10.0); NEUT # 7.7 K/uL (1.8-7.0); NEUT % 74.7 % (50.0-75.0); NRBC % 0.1 % (0.0-2.0); PLATELET COUNT 277 K/uL (130-400); RBC 3.59 Mil/uL (4.40-5.90); RED CELL DISTRIBUTION WIDTH 15.6 % (11.5-14.5); WHITE BLOOD COUNT 10.3 K/uL (4.8-10.8)
[2015-08-16 08:03] LABS: ALBUMIN 3.2 g/dL (3.5-5.0)
[2015-08-16 08:06] LABS: ALB/GLOB RATIO 0.9 (1.0-2.1); AST/SGOT 66 U/L (17-59); GFR NON-AFRICAN AMERICAN > 60
[2015-08-16 08:07] LABS: ALT/SGPT 134 U/L (21-72); BLOOD UREA NITROGEN 20 mg/dL (9-20); CALCIUM 8.5 mg/dL (8.4-10.2)
[2015-08-16 08:49] LABS: ANISOCYTOSIS SLIGHT; BANDS 3 % (0-0); EOSINOPHIL 7 % (0-4); LYMPHOCYTE 7 % (20-40); MONOCYTE 9 % (0-10); NEUTROPHIL 74 % (50-75); PLATELET ESTIMATE NORMAL (NORMAL); TOTAL CELLS COUNTED 100
--- NOTE | 2015-08-16 09:31 | CP.PCM.PN ---
Addendum entered and electronically signed by Lauri Araya DO 08/16/15 17:22: During rounds with the attending, pt's was present during bedside. Used tempering machine operator on phone, Dr. Marinelli, to interpret. Per the , she has been living in [facility] since 2012. She currently expresses a desire to have the patient weaned off of the ventilator. She is actively in search of a hospital closer to her home in [facility] to that would be willing accept the patient, but has been unsuccessful so far. She asks that we continue to try to wean him, whenever we can. Original Note: <Lauri Araya - Last Filed: 08/16/15 09:28> Subjective - Subjective Subjective: Pt was seen and examined at bedside Pt was asleep, awoken with verbal stimuli, awake but not alert Non responsive to commands, yawned spontaneously, with UE movement Pt unable to give ROS due to altered mental status No events overnight, per nursing Review of Systems - Review of Systems Systems not reviewed;Unavailable: Altered Mental Status Objective - Vital Signs/Intake and Output Vital Signs (last 24 hours): Vital Signs - 24 hr 08/15/15 08/16/15 21:36 05:30 Temperature 97.6 F 96.9 F L Pulse Rate 82 60 Respiratory 20 20 Rate Blood Pressure 137/85 124/81 O2 Sat by Pulse 98 100 Oximetry Intake and Output (last 12 hours): Intake & Output 08/15/15 08/16/15 08/16/15 18:59 06:59 18:59 Intake Total 820 Output Total 1500 Balance -680 Weight 110 lb Intake: Tube Feeding 720 Other 100 Output: Gastric Amount 0 Stomach 0 Urine 1500 Urethral (Yoo) 1500 - Medications Medications: Current Medications Aspirin (Aspirin) 325 mg PO DAILY [facility] Last Admin: 08/15/15 11:03 Dose: 325 mg Clopidogrel Bisulfate (Plavix) 75 mg PO DAILY [facility] Last Admin: 08/15/15 11:02 Dose: 75 mg Docusate Sodium (Colace Liquid) 100 mg PO DAILY [facility] Last Admin: 08/15/15 11:02 Dose: 100 mg Lisinopril (Zestril) 5 mg PO DAILY [facility] Last Admin: 08/15/15 11:02 Dose: 5 mg Phenytoin (Dilantin) 100 mg PEG TID [facility] Last Admin: 09/23/15 18:18 Dose: 100 mg Polyethylene Glycol (Miralax) 17 gm PEG BID [facility] Last Admin: 08/15/15 18:18 Dose: Not Given - Labs Labs (last 24 hours): Laboratory Results - last 24 hr 08/16/15 07:24 WBC 10.3 RBC 3.59 L Hgb 11.4 L Hct 34.0 L MCV 94.6 H MCH 31.7 H MCHC 33.5 RDW 15.6 H Plt Count 277 MPV 8.7 Neut % (Auto) 74.7 Lymph % (Auto) 8.7 L [place] % (Auto) 9.2 Eos % (Auto) 7.0 H Baso % (Auto) 0.4 Neut # 7.7 H Lymph # 0.9 L [place] # 1.0 H Eos # 0.7 Baso # 0.0 Neutrophils % (Manual) 74 Band Neutrophils % 3 H Lymphocytes % (Manual) 7 L Monocytes % (Manual) 9 Eosinophils % (Manual) 7 H Platelet Estimate Normal Anisocytosis (manual) Slight Sodium 139 Potassium 4.4 Chloride 101 Carbon Dioxide 31 H Anion Gap 11 BUN 20 Creatinine 0.6 L Est GFR ( Amer) > 60 Est GFR (Non-Af Amer) > 60 Random Glucose 131 H Calcium 8.5 Total Bilirubin 0.4 AST 66 H ALT 134 H Alkaline Phosphatase 136 H Total Protein 7.0 Albumin 3.2 L Globulin 3.8 Albumin/Globulin Ratio 0.9 L - Constitutional Appears: Non-toxic, No Acute Distress, Chronically Ill - Head Exam Head Exam: ATRAUMATIC, NORMAL INSPECTION, NORMOCEPHALIC - Eye Exam Pupil Exam: NORMAL ACCOMODATION, PERRL - ENT Exam ENT Exam: Mucous Membranes Moist - Respiratory Exam Respiratory Exam: Clear to PA & Lateral, NORMAL BREATHING PATTERN, UNREMARKABLE. absent: Rales, Rhonchi, Wheezes - Cardiovascular Exam Cardiovascular Exam: REGULAR RHYTHM, +S1, +S2 - GI/Abdominal Exam GI & Abdominal Exam: Normal Bowel Sounds, Soft, Unremarkable. absent: Distended , Firm, Tenderness - Extremities Exam Extremities exam: normal capillary refill, pedal pulses present - Neurological Exam Neurological exam: Altered. absent: Alert, Oriented x3 - Psychiatric Exam Psychiatric exam: absent: Normal Affect, Normal Mood - Skin Skin Exam: Dry, Intact, Normal Color, Warm Assessment/Plan (1) Anoxic encephalopathy Current Visit: Yes Status: Acute Comment: Pt status remains unchanged. Patient was awakened with verbal stimuli, does not follow commands Patient with spontaneous movements, yawning trach and PEG in place 08/16/15- per Dietary recommendations, feeding will run at 60cc/hr at start and gradually raised to 100cc/hr x 12 hrs. Feedings will be held 2 hrs pre and post dilatin administration 08/14/15- Per Dr. Salgado, he is on SIMV mode of the ventilation and still has apnea. Unable to wean him more. Monitor (2) Cardiac arrest Current Visit: Yes Status: Acute Comment: s/p V-Tach arrest Continue Plavix 75mg PO daily Continue ASA 325mg PO daily Continue Lisinopril 5mg PO daily (3) Chest congestion Current Visit: Yes Status: Acute Comment: Sputum culture (07/28/15) with Pseudomonas aeruginosa s/p treatment Dr. Armstrong on case-help appreciated patient afebrile (4) Edema of upper extremity Current Visit: Yes Status: Acute Comment: Venous doppler (07/19) - thrombosis of right cephalic vein (superficial) - please see official report Continue warm compresses Monitor (5) Respiratory failure Current Visit: Yes Status: Acute Comment: Dr. Salgado (pulm) on case-help appreciated Patient on trach SIMV Monitor (6) STEMI (ST elevation myocardial infarction) Current Visit: Yes Status: Acute Comment: Continue Lisinopril 5mg PO daily Continue Plavix 75mg PO daily Continue ASA 325mg PO daily s/p stenting (7) Seizures Current Visit: Yes Status: Acute Comment: Continue dilantin 100mg via PEG TID Continue to monitor for seizure activity (8) Thrombophlebitis of superficial veins of upper extremities Current Visit: Yes Status: Acute Comment: Venous doppler (07/19) prelim report - thrombosis of right cephalic vein (superficial) Shows Abnormality Lovenox 40mg SC daily Warm compresses to area 15 minutes, 3x a day f/u final venous doppler report (9) Transaminitis Current Visit: Yes Status: Acute Comment: ALT and AlK phos elevated Hep panel negative Continue to monitor LFTs (10) UTI (lower urinary tract infection) Current Visit: Yes Status: Acute Comment: Urine Cx (07/28): neg UA (07/28): shows no WBC or Leuk esterases Urine CX (07/18): Coag neg staph (positive for Pseudomonas in past) IV Cefepime 1gm q12h started 07/21 and completed 07/26. (11) Bed sore Current Visit: Yes Status: Acute Comment: 08/09- stage one ulcer, healed, per nursing. continue repositioning of patient q2H dolphin mattress (12) Prophylactic measure Current Visit: Yes Status: Acute Comment: Scds Miralax <Nyunt,Rashel - Last Filed: 08/16/15 17:52> Objective - Vital Signs/Intake and Output Vital Signs (last 24 hours): Vital Signs - 24 hr 08/15/15 08/16/15 08/16/15 21:36 05:30 11:35 Temperature 97.6 F 96.9 F L Pulse Rate 82 60 89 Respiratory 20 20 16 Rate Blood Pressure 137/85 124/81 104/66 O2 Sat by Pulse 98 100 Oximetry 08/16/15 14:00 Temperature 99.2 F Pulse Rate 82 Respiratory 14 Rate Blood Pressure 143/84 O2 Sat by Pulse 99 Oximetry Intake and Output (last 12 hours): Intake & Output 08/15/15 08/16/15 08/16/15 18:59 06:59 18:59 Intake Total 820 Output Total 1500 300 Balance -680 -300 Weight 110 lb Intake: Tube Feeding 720 Other 100 Output: Gastric Amount 0 Stomach 0 Urine 1500 300 Urethral (Yoo) 1500 300 Other: # Bowel Movements 1 - Medications Medications: Current Medications Aspirin (Aspirin) 325 mg PO DAILY [facility] Last Admin: 08/16/15 11:18 Dose: 325 mg Clopidogrel Bisulfate (Plavix) 75 mg PO DAILY [facility] Last Admin: 08/16/15 11:19 Dose: 75 mg Docusate Sodium (Colace Liquid) 100 mg PO DAILY [facility] Last Admin: 08/16/15 11:18 Dose: 100 mg Lisinopril (Zestril) 5 mg PO DAILY [facility] Last Admin: 08/16/15 11:19 Dose: 5 mg Phenytoin (Dilantin) 100 mg PEG TID [facility] Last Admin: 08/16/15 17:38 Dose: 100 mg Polyethylene Glycol (Miralax) 17 gm PEG BID [facility] Last Admin: 08/16/15 17:38 Dose: 17 gm - Labs Labs (last 24 hours): Laboratory Results - last 24 hr 08/16/15 07:24 WBC 10.3 RBC 3.59 L Hgb 11.4 L Hct 34.0 L MCV 94.6 H MCH 31.7 H MCHC 33.5 RDW 15.6 H Plt Count 277 MPV 8.7 Neut % (Auto) 74.7 Lymph % (Auto) 8.7 L [place] % (Auto) 9.2 Eos % (Auto) 7.0 H Baso % (Auto) 0.4 Neut # 7.7 H Lymph # 0.9 L [place] # 1.0 H Eos # 0.7 Baso # 0.0 Neutrophils % (Manual) 74 Band Neutrophils % 3 H Lymphocytes % (Manual) 7 L Monocytes % (Manual) 9 Eosinophils % (Manual) 7 H Platelet Estimate Normal Anisocytosis (manual) Slight Sodium 139 Potassium 4.4 Chloride 101 Carbon Dioxide 31 H Anion Gap 11 BUN 20 Creatinine 0.6 L Est GFR ( Amer) > 60 Est GFR (Non-Af Amer) > 60 Random Glucose 131 H Calcium 8.5 Total Bilirubin 0.4 AST 66 H ALT 134 H Alkaline Phosphatase 136 H Total Protein 7.0 Albumin 3.2 L Globulin 3.8 Albumin/Globulin Ratio 0.9 L Attending/Attestation - Attestation I have personally seen and examined this patient.: Yes I have fully participated in the care of the patient.: Yes I have reviewed all pertinent clinical information: Yes Notes (Text): 08/16/15 17:48 Patient seen and examined during round with residents. pt was in the room ... dw her via tempering machine operator ( resident)---> pt situation was discussed pt agree with the vent status, not able to wean at this time, cont supportive mx pt willing to transfer the pt to the hospital near to her place,
[2015-08-16] MEDS: Phenytoin 100 mg/4 ml Oral Susp UD PEG SCH ×3 (11:18→17:38)
[2015-08-16] MEDS: POLYETHYLENE GLYCOL 3350 17 GM/Dose PACKET PEG SCH ×2 (11:19→17:38)
[2015-08-17] MEDS: Phenytoin 100 mg/4 ml Oral Susp UD PEG SCH ×3 (10:45→17:01)
[2015-08-17] MEDS: POLYETHYLENE GLYCOL 3350 17 GM/Dose PACKET PEG SCH ×2 (10:46→17:02)
--- NOTE | 2015-08-17 11:05 | CP.PCM.PN ---
<MarshalLauri - Last Filed: 08/17/15 10:59> Subjective - Subjective Subjective: Pt was seen and examined at bedside Pt is awake, unresponsive to verbal or physical stimuli. No events overnight per nursing Pt's feeding has been changed per dietary recommendations, feeding was at 70cc/ hr this morning. Pt still spontaneously opens eyes and occasionally yawns. Review of Systems - Review of Systems Systems not reviewed;Unavailable: Altered Mental Status Objective - Vital Signs/Intake and Output Vital Signs (last 24 hours): Vital Signs - 24 hr 08/16/15 08/16/15 08/17/15 11:35 14:00 06:41 Temperature 99.2 F 98.5 F Pulse Rate 89 82 70 Respiratory 16 14 20 Rate Blood Pressure 104/66 143/84 113/82 O2 Sat by Pulse 99 100 Oximetry 08/17/15 09:54 Temperature Pulse Rate Respiratory Rate Blood Pressure 124/72 O2 Sat by Pulse Oximetry Intake and Output (last 12 hours): Intake & Output 08/16/15 08/17/15 08/17/15 18:59 06:59 18:59 Intake Total 920 Output Total 300 325 Balance -300 595 Intake: Tube Feeding 720 Other 200 Output: Urine 300 325 Urethral (Yoo) 300 325 Other: # Bowel Movements 1 1 - Medications Medications: Current Medications Aspirin (Aspirin) 325 mg PO DAILY [facility] Last Admin: 08/17/15 10:45 Dose: 325 mg Clopidogrel Bisulfate (Plavix) 75 mg PO DAILY [facility] Last Admin: 08/17/15 10:46 Dose: 75 mg Docusate Sodium (Colace Liquid) 100 mg PO DAILY [facility] Last Admin: 08/17/15 10:45 Dose: Not Given Lisinopril (Zestril) 5 mg PO DAILY [facility] Last Admin: 08/17/15 10:46 Dose: 5 mg Phenytoin (Dilantin) 100 mg PEG TID [facility] Last Admin: 08/17/15 10:45 Dose: 100 mg Polyethylene Glycol (Miralax) 17 gm PEG BID [facility] Last Admin: 08/17/15 10:46 Dose: Not Given - Constitutional Appears: Non-toxic, No Acute Distress, Chronically Ill - Head Exam Head Exam: ATRAUMATIC, NORMAL INSPECTION, NORMOCEPHALIC - Eye Exam Pupil Exam: NORMAL ACCOMODATION, PERRL - ENT Exam ENT Exam: Mucous Membranes Moist - Respiratory Exam Respiratory Exam: Clear to PA & Lateral, NORMAL BREATHING PATTERN, UNREMARKABLE. absent: Rales, Rhonchi, Wheezes - Cardiovascular Exam Cardiovascular Exam: REGULAR RHYTHM, +S1, +S2 - GI/Abdominal Exam GI & Abdominal Exam: Normal Bowel Sounds, Soft, Unremarkable. absent: Distended , Firm, Tenderness - Extremities Exam Extremities exam: normal capillary refill, pedal pulses present - Neurological Exam Neurological exam: Altered. absent: Alert, Oriented x3 - Psychiatric Exam Psychiatric exam: absent: Normal Affect, Normal Mood - Skin Skin Exam: Dry, Intact, Normal Color, Warm Assessment/Plan (1) Anoxic encephalopathy Current Visit: Yes Status: Acute Comment: Pt status remains unchanged. Patient was awakened with verbal stimuli, does not follow commands Patient with spontaneous movements, yawning trach and PEG in place 08/16/15- per Dietary recommendations, feeding will run at 60cc/hr at start and gradually raised to 100cc/hr x 12 hrs. Feedings will be held 2 hrs pre and post dilatin administration 08/14/15- Per Dr. Salgado, he is on SIMV mode of the ventilation and still has apnea. Unable to wean him more. Monitor (2) Cardiac arrest Current Visit: Yes Status: Acute Comment: s/p V-Tach arrest Continue Plavix 75mg PO daily Continue ASA 325mg PO daily Continue Lisinopril 5mg PO daily (3) Chest congestion Current Visit: Yes Status: Acute Comment: Sputum culture (07/28/15) with Pseudomonas aeruginosa s/p treatment Dr. Armstrong on case-help appreciated patient afebrile (4) Edema of upper extremity Current Visit: Yes Status: Acute Comment: Venous doppler (07/19) - thrombosis of right cephalic vein (superficial) - please see official report Continue warm compresses Monitor (5) Respiratory failure Current Visit: Yes Status: Acute Comment: Dr. Salgado (pulm) on case-help appreciated Patient on trach SIMV Monitor (6) STEMI (ST elevation myocardial infarction) Current Visit: Yes Status: Acute Comment: Continue Lisinopril 5mg PO daily Continue Plavix 75mg PO daily Continue ASA 325mg PO daily s/p stenting (7) Seizures Current Visit: Yes Status: Acute Comment: Continue dilantin 100mg via PEG TID Continue to monitor for seizure activity (8) Thrombophlebitis of superficial veins of upper extremities Current Visit: Yes Status: Acute Comment: Venous doppler (07/19) prelim report - thrombosis of right cephalic vein (superficial) Shows Abnormality Lovenox 40mg SC daily Warm compresses to area 15 minutes, 3x a day f/u final venous doppler report (9) Transaminitis Current Visit: Yes Status: Acute Comment: ALT and AlK phos elevated Hep panel negative Continue to monitor LFTs (10) UTI (lower urinary tract infection) Current Visit: Yes Status: Acute Comment: Urine Cx (07/28): neg UA (07/28): shows no WBC or Leuk esterases Urine CX (07/18): Coag neg staph (positive for Pseudomonas in past) IV Cefepime 1gm q12h started 07/21 and completed 07/26. (11) Bed sore Current Visit: Yes Status: Acute Comment: 08/09- stage one ulcer, healed, per nursing. continue repositioning of patient q2H dolphin mattress (12) Prophylactic measure Current Visit: Yes Status: Acute Comment: Scds Miralax <Rashel Rodrigues - Last Filed: 08/17/15 16:45> Objective - Vital Signs/Intake and Output Vital Signs (last 24 hours): Vital Signs - 24 hr 08/17/15 08/17/15 08/17/15 06:41 09:54 14:43 Temperature 98.5 F 96.3 F L Pulse Rate 70 78 Respiratory 20 20 Rate Blood Pressure 113/82 124/72 135/94 H O2 Sat by Pulse 100 100 Oximetry Intake and Output (last 12 hours): Intake & Output 08/16/15 08/17/15 08/17/15 18:59 06:59 18:59 Intake Total 920 Output Total 300 325 800 Balance -300 595 -800 Intake: Tube Feeding 720 Other 200 Output: Urine 300 325 800 Urethral (Yoo) 300 325 800 Other: # Bowel Movements 1 1 - Medications Medications: Current Medications Aspirin (Aspirin) 325 mg PO DAILY [facility] Last Admin: 08/17/15 10:45 Dose: 325 mg Clopidogrel Bisulfate (Plavix) 75 mg PO DAILY [facility] Last Admin: 08/17/15 10:46 Dose: 75 mg Docusate Sodium (Colace Liquid) 100 mg PO DAILY [facility] Last Admin: 08/17/15 10:45 Dose: Not Given Lisinopril (Zestril) 5 mg PO DAILY [facility] Last Admin: 08/17/15 10:46 Dose: 5 mg Phenytoin (Dilantin) 100 mg PEG TID [facility] Last Admin: 08/17/15 13:13 Dose: 100 mg Polyethylene Glycol (Miralax) 17 gm PEG BID [facility] Last Admin: 08/17/15 10:46 Dose: Not Given Attending/Attestation - Attestation I have personally seen and examined this patient.: Yes I have fully participated in the care of the patient.: Yes I have reviewed all pertinent clinical information: Yes Notes (Text): 08/17/15 16:44 Patient seen and examined during round with residents pt remains on vent, not able to wean'cont supportive mx no family at the bedside today
--- NOTE | 2015-08-18 00:40 | CP.PCM.PN ---
<Joel Lin H - Last Filed: 08/18/15 03:18> Subjective - Subjective Subjective: Patient examined in room. Patient does not respond to verbal or physical stimulus. Objective - Vital Signs/Intake and Output Vital Signs (last 24 hours): Vital Signs - 24 hr 08/17/15 08/17/15 08/17/15 06:41 09:54 14:43 Temperature 98.5 F 96.3 F L Pulse Rate 70 78 Respiratory 20 20 Rate Blood Pressure 113/82 124/72 135/94 H O2 Sat by Pulse 100 100 Oximetry 08/17/15 21:17 Temperature 97.9 F Pulse Rate 92 H Respiratory 20 Rate Blood Pressure 133/81 O2 Sat by Pulse 100 Oximetry Intake and Output (last 12 hours): Intake & Output 08/17/15 08/17/15 08/18/15 06:59 18:59 06:59 Intake Total 920 800 Output Total 325 800 850 Balance 595 -800 -50 Intake: Tube Feeding 720 800 Other 200 Output: Urine 325 800 850 Urethral (Yoo) 325 800 850 Other: # Bowel Movements 1 - Medications Medications: Current Medications Aspirin (Aspirin) 325 mg PO DAILY [facility] Last Admin: 08/17/15 10:45 Dose: 325 mg Clopidogrel Bisulfate (Plavix) 75 mg PO DAILY [facility] Last Admin: 08/17/15 10:46 Dose: 75 mg Docusate Sodium (Colace Liquid) 100 mg PO DAILY [facility] Last Admin: 08/17/15 10:45 Dose: Not Given Lisinopril (Zestril) 5 mg PO DAILY [facility] Last Admin: 08/17/15 10:46 Dose: 5 mg Phenytoin (Dilantin) 100 mg PEG TID [facility] Last Admin: 08/17/15 17:01 Dose: 100 mg Polyethylene Glycol (Miralax) 17 gm PEG BID [facility] Last Admin: 08/17/15 17:02 Dose: Not Given Assessment/Plan (1) Anoxic encephalopathy Current Visit: Yes Status: Acute Comment: 08/18 Status is unchanged, will monitor for movments or yawning. Pt status remains unchanged. Patient was awakened with verbal stimuli, does not follow commands Patient with spontaneous movements, yawning trach and PEG in place 08/16/15- per Dietary recommendations, feeding will run at 60cc/hr at start and gradually raised to 100cc/hr x 12 hrs. Feedings will be held 2 hrs pre and post dilatin administration 08/14/15- Per Dr. Salgado, he is on SIMV mode of the ventilation and still has apnea. Unable to wean him more. Monitor (2) CAD (coronary artery disease) Current Visit: Yes Status: Acute Comment: 08/18 Cw Linsinopril Continue Lisinopril 5mg PO daily Continue ASA 325mg PO daily Continue Plavix 75mg PO daily (3) STEMI (ST elevation myocardial infarction) Current Visit: Yes Status: Acute Comment: Continue Lisinopril 5mg PO daily Continue Plavix 75mg PO daily Continue ASA 325mg PO daily s/p stenting (4) Seizures Current Visit: Yes Status: Acute Comment: Continue dilantin 100mg via PEG TID Continue to monitor for seizure activity (5) Prophylactic measure Current Visit: Yes Status: Acute Comment: Scds Miralax <Rashel Rodrigues - Last Filed: 08/18/15 13:31> Objective - Vital Signs/Intake and Output Vital Signs (last 24 hours): Vital Signs - 24 hr 08/17/15 08/17/15 08/18/15 14:43 21:17 05:28 Temperature 96.3 F L 97.9 F 97.3 F L Pulse Rate 78 92 H 87 Respiratory 20 20 20 Rate Blood Pressure 135/94 H 133/81 130/75 O2 Sat by Pulse 100 100 100 Oximetry Intake and Output (last 12 hours): Intake & Output 08/17/15 08/18/15 08/18/15 18:59 06:59 18:59 Intake Total 1860 Output Total 800 1100 Balance -800 760 Weight 104 lb Intake: Tube Feeding 1760 Other 100 Output: Gastric Amount 0 Stomach 0 Urine 800 1100 Urethral (Yoo) 800 1100 - Medications Medications: Current Medications Aspirin (Aspirin) 325 mg PO DAILY [facility] Last Admin: 08/18/15 10:37 Dose: 325 mg Clopidogrel Bisulfate (Plavix) 75 mg PO DAILY [facility] Last Admin: 08/18/15 10:38 Dose: 75 mg Docusate Sodium (Colace Liquid) 100 mg PO DAILY [facility] Last Admin: 08/18/15 10:37 Dose: 100 mg Lisinopril (Zestril) 5 mg PO DAILY [facility] Last Admin: 08/18/15 10:38 Dose: 5 mg Phenytoin (Dilantin) 100 mg PEG TID [facility] Last Admin: 08/18/15 13:26 Dose: 100 mg Polyethylene Glycol (Miralax) 17 gm PEG BID [facility] Last Admin: 08/18/15 10:37 Dose: 17 gm - Labs Labs (last 24 hours): Laboratory Results - last 24 hr 08/18/15 07:58 WBC 10.7 RBC 3.62 L Hgb 11.4 L Hct 34.2 L MCV 94.3 H MCH 31.4 H MCHC 33.3 RDW 15.3 H Plt Count 283 MPV 8.9 Neut % (Auto) 74.8 Lymph % (Auto) 9.2 L [place] % (Auto) 8.4 Eos % (Auto) 7.1 H Baso % (Auto) 0.5 Neut # 8.0 H Lymph # 1.0 [place] # 0.9 H Eos # 0.8 H Baso # 0.1 Neutrophils % (Manual) 71 Band Neutrophils % 2 H Lymphocytes % (Manual) 12 L Monocytes % (Manual) 10 Eosinophils % (Manual) 5 H Platelet Estimate Normal Large Platelets Present Polychromasia Slight Poikilocytosis (manual Slight Basophilic Stippling Slight Anisocytosis (manual) Slight Ovalocytes Slight Schistocytes Slight Sodium 139 Potassium 4.1 Chloride 101 Carbon Dioxide 31 H Anion Gap 11 BUN 19 Creatinine 0.5 L Est GFR ( Amer) > 60 Est GFR (Non-Af Amer) > 60 Random Glucose 151 H Calcium 8.5 Total Bilirubin 0.3 AST 62 H ALT 134 H Alkaline Phosphatase 133 H Total Protein 6.9 Albumin 3.2 L Globulin 3.8 Albumin/Globulin Ratio 0.8 L Attending/Attestation - Attestation I have personally seen and examined this patient.: Yes I have fully participated in the care of the patient.: Yes I have reviewed all pertinent clinical information: Yes Notes (Text): 08/18/15 13:30 Patient seen and examined during round with residents no new events cont supportive mx
[2015-08-18 08:09] LABS: BASO # 0.1 K/uL (0.0-0.2); BASO % 0.5 % (0.0-2.0); EOS # 0.8 K/uL (0.0-0.7); EOS % 7.1 % (0.0-4.0); HEMOGLOBIN 11.4 g/dL (12.0-18.0); LYMPH % 9.2 % (20.0-40.0); MEAN CELL VOLUME 94.3 fL (80.0-94.0); MEAN CORPUSCULAR HEMOGLOBIN 31.4 pg (27.0-31.0); MEAN CORPUSCULAR HGB CONC 33.3 g/dL (33.0-37.0); MEAN PLATELET VOLUME 8.9 fL (7.2-11.7); MONO # 0.9 K/uL (0.0-0.8); MONO % 8.4 % (0.0-10.0); NEUT % 74.8 % (50.0-75.0); PLATELET COUNT 283 K/uL (130-400); RBC 3.62 Mil/uL (4.40-5.90); RED CELL DISTRIBUTION WIDTH 15.3 % (11.5-14.5); WHITE BLOOD COUNT 10.7 K/uL (4.8-10.8)
[2015-08-18 08:36] LABS: ALBUMIN 3.2 g/dL (3.5-5.0)
[2015-08-18 08:39] LABS: AST/SGOT 62 U/L (17-59); GFR NON-AFRICAN AMERICAN > 60
[2015-08-18 08:40] LABS: ALT/SGPT 134 U/L (21-72); BLOOD UREA NITROGEN 19 mg/dL (9-20); CALCIUM 8.5 mg/dL (8.4-10.2)
[2015-08-18 09:02] LABS: ALB/GLOB RATIO 0.8 (1.0-2.1)
[2015-08-18 09:30] LABS: ANISOCYTOSIS SLIGHT; BANDS 2 % (0-0); EOSINOPHIL 5 % (0-4); LYMPHOCYTE 12 % (20-40); MONOCYTE 10 % (0-10); NEUTROPHIL 71 % (50-75); PLATELET ESTIMATE NORMAL (NORMAL); POIKILOCYTOSIS SLIGHT; TOTAL CELLS COUNTED 100
[2015-08-18 09:31] LABS: OVALOCYTES SLIGHT; POLYCHROMIC SLIGHT; SCHISTOCYTES SLIGHT
[2015-08-18 09:32] LABS: LARGE PLATELETS PRESENT
[2015-08-18] MEDS: POLYETHYLENE GLYCOL 3350 17 GM/Dose PACKET PEG SCH ×2 (10:37→17:45)
[2015-08-18] MEDS: Phenytoin 100 mg/4 ml Oral Susp UD PEG SCH ×3 (10:37→17:45)
--- NOTE | 2015-08-19 06:30 | CP.PCM.PN ---
<Joel Lin H - Last Filed: 08/19/15 06:29> Subjective - Subjective Subjective: Patient examined in room. no purposeful movement noted. Objective - Vital Signs/Intake and Output Vital Signs (last 24 hours): Vital Signs - 24 hr 08/18/15 08/18/15 08/19/15 20:00 21:46 05:54 Temperature 97.3 F L 98.5 F Pulse Rate 87 84 84 Respiratory 20 20 Rate Blood Pressure 95/70 L 134/84 O2 Sat by Pulse 100 100 Oximetry Intake and Output (last 12 hours): Intake & Output 08/18/15 08/18/15 08/19/15 06:59 18:59 06:59 Intake Total 1860 Output Total 1100 1100 Balance 760 -1100 Weight 104 lb Intake: Tube Feeding 1760 Other 100 Output: Gastric Amount 0 Stomach 0 Urine 1100 1100 Urethral (Yoo) 1100 1100 - Medications Medications: Current Medications Aspirin (Aspirin) 325 mg PO DAILY [facility] Last Admin: 08/18/15 10:37 Dose: 325 mg Clopidogrel Bisulfate (Plavix) 75 mg PO DAILY [facility] Last Admin: 08/18/15 10:38 Dose: 75 mg Docusate Sodium (Colace Liquid) 100 mg PO DAILY [facility] Last Admin: 08/18/15 10:37 Dose: 100 mg Lisinopril (Zestril) 5 mg PO DAILY [facility] Last Admin: 08/18/15 10:38 Dose: 5 mg Phenytoin (Dilantin) 100 mg PEG TID [facility] Last Admin: 08/18/15 17:45 Dose: 100 mg Polyethylene Glycol (Miralax) 17 gm PEG BID [facility] Last Admin: 08/18/15 17:45 Dose: Not Given - Labs Labs (last 24 hours): Laboratory Results - last 24 hr 08/18/15 07:58 WBC 10.7 RBC 3.62 L Hgb 11.4 L Hct 34.2 L MCV 94.3 H MCH 31.4 H MCHC 33.3 RDW 15.3 H Plt Count 283 MPV 8.9 Neut % (Auto) 74.8 Lymph % (Auto) 9.2 L [place] % (Auto) 8.4 Eos % (Auto) 7.1 H Baso % (Auto) 0.5 Neut # 8.0 H Lymph # 1.0 [place] # 0.9 H Eos # 0.8 H Baso # 0.1 Neutrophils % (Manual) 71 Band Neutrophils % 2 H Lymphocytes % (Manual) 12 L Monocytes % (Manual) 10 Eosinophils % (Manual) 5 H Platelet Estimate Normal Large Platelets Present Polychromasia Slight Poikilocytosis (manual Slight Basophilic Stippling Slight Anisocytosis (manual) Slight Ovalocytes Slight Schistocytes Slight Sodium 139 Potassium 4.1 Chloride 101 Carbon Dioxide 31 H Anion Gap 11 BUN 19 Creatinine 0.5 L Est GFR ( Amer) > 60 Est GFR (Non-Af Amer) > 60 Random Glucose 151 H Calcium 8.5 Total Bilirubin 0.3 AST 62 H ALT 134 H Alkaline Phosphatase 133 H Total Protein 6.9 Albumin 3.2 L Globulin 3.8 Albumin/Globulin Ratio 0.8 L Assessment/Plan (1) Anoxic encephalopathy Current Visit: Yes Status: Acute Comment: 08/19 Continue to monitor, no movements or yawning observed. 08/18 Status is unchanged, will monitor for movments or yawning. Pt status remains unchanged. Patient was awakened with verbal stimuli, does not follow commands Patient with spontaneous movements, yawning trach and PEG in place 08/16/15- per Dietary recommendations, feeding will run at 60cc/hr at start and gradually raised to 100cc/hr x 12 hrs. Feedings will be held 2 hrs pre and post dilatin administration 08/14/15- Per Dr. Salgado, he is on SIMV mode of the ventilation and still has apnea. Unable to wean him more. Monitor (2) CAD (coronary artery disease) Current Visit: Yes Status: Acute Comment: 08/18 Cw Linsinopril Continue Lisinopril 5mg PO daily Continue ASA 325mg PO daily Continue Plavix 75mg PO daily (3) STEMI (ST elevation myocardial infarction) Current Visit: Yes Status: Acute Comment: Continue Lisinopril 5mg PO daily Continue Plavix 75mg PO daily Continue ASA 325mg PO daily s/p stenting (4) Seizures Current Visit: Yes Status: Acute Comment: Continue dilantin 100mg via PEG TID Continue to monitor for seizure activity (5) Prophylactic measure Current Visit: Yes Status: Acute Comment: Scds Miralax <Nyunt,Rashel - Last Filed: 08/19/15 15:38> Objective - Vital Signs/Intake and Output Vital Signs (last 24 hours): Vital Signs - 24 hr 08/18/15 08/18/15 08/19/15 20:00 21:46 05:54 Temperature 97.3 F L 98.5 F Pulse Rate 87 84 84 Respiratory 20 20 Rate Blood Pressure 95/70 L 134/84 O2 Sat by Pulse 100 100 Oximetry Intake and Output (last 12 hours): Intake & Output 08/18/15 08/19/15 08/19/15 18:59 06:59 18:59 Intake Total 920 Output Total 1100 1000 Balance -1100 -80 Intake: Tube Feeding 720 Other 200 Output: Urine 1100 1000 Urethral (Yoo) 1100 1000 Other: # Bowel Movements 0 - Medications Medications: Current Medications Aspirin (Aspirin) 325 mg PO DAILY [facility] Last Admin: 08/19/15 11:00 Dose: 325 mg Clopidogrel Bisulfate (Plavix) 75 mg PO DAILY [facility] Last Admin: 08/19/15 11:00 Dose: 75 mg Docusate Sodium (Colace Liquid) 100 mg PO DAILY [facility] Last Admin: 08/19/15 11:08 Dose: 100 mg Lisinopril (Zestril) 5 mg PO DAILY [facility] Last Admin: 08/19/15 11:00 Dose: 5 mg Phenytoin (Dilantin) 100 mg PEG TID [facility] Last Admin: 08/19/15 13:13 Dose: 100 mg Polyethylene Glycol (Miralax) 17 gm PEG BID [facility] Last Admin: 08/19/15 11:00 Dose: 17 gm Attending/Attestation - Attestation I have personally seen and examined this patient.: Yes I have fully participated in the care of the patient.: Yes I have reviewed all pertinent clinical information: Yes Notes (Text): 08/19/15 15:37 Patient seen and examined during round with resident pt has no new events cont supportive mx vent support as per Pulm
[2015-08-19] MEDS: POLYETHYLENE GLYCOL 3350 17 GM/Dose PACKET PEG SCH ×2 (11:00→17:39)
[2015-08-19] MEDS: Phenytoin 100 mg/4 ml Oral Susp UD PEG SCH ×3 (11:00→18:06)
[2015-08-20] MEDS: Phenytoin 100 mg/4 ml Oral Susp UD PEG SCH ×3 (10:16→18:32)
[2015-08-20] MEDS: POLYETHYLENE GLYCOL 3350 17 GM/Dose PACKET PEG SCH ×2 (10:17→18:32)
--- NOTE | 2015-08-20 15:09 | CP.PCM.PN ---
<Lauri Araya - Last Filed: 08/20/15 15:06> Subjective - Subjective Subjective: Pt was seen and examined at bedside. Pt unable to give ROS due to altered mental state. Pt arousable with verbal stimuli, appeared to look straight at me. No tracking. Spontaneous LE movement. Review of Systems - Review of Systems Systems not reviewed;Unavailable: Altered Mental Status Objective - Vital Signs/Intake and Output Vital Signs (last 24 hours): Vital Signs - 24 hr 08/19/15 08/19/15 08/20/15 20:00 21:41 05:15 Temperature 98.3 F 98 F Pulse Rate 84 89 89 Respiratory 20 20 Rate Blood Pressure 134/84 148/82 O2 Sat by Pulse 100 99 Oximetry 08/20/15 08/20/15 07:50 14:00 Temperature 97.5 F L Pulse Rate 89 80 Respiratory 20 Rate Blood Pressure 131/84 O2 Sat by Pulse 100 Oximetry Intake and Output (last 12 hours): Intake & Output 08/19/15 08/20/15 08/20/15 18:59 06:59 18:59 Intake Total 920 920 Output Total 1000 1000 625 Balance -80 -80 -625 Weight 105 lb Intake: Tube Feeding 720 720 Other 200 200 Output: Urine 1000 1000 625 Urethral (Yoo) 1000 1000 625 Other: # Bowel Movements 0 0 1 - Medications Medications: Current Medications Aspirin (Aspirin) 325 mg PO DAILY [facility] Last Admin: 08/20/15 10:16 Dose: 325 mg Clopidogrel Bisulfate (Plavix) 75 mg PO DAILY [facility] Last Admin: 08/20/15 10:16 Dose: 75 mg Docusate Sodium (Colace Liquid) 100 mg PO DAILY [facility] Last Admin: 08/20/15 10:16 Dose: 100 mg Lisinopril (Zestril) 5 mg PO DAILY [facility] Last Admin: 08/20/15 10:16 Dose: 5 mg Phenytoin (Dilantin) 100 mg PEG TID [facility] Last Admin: 08/20/15 14:32 Dose: 100 mg Polyethylene Glycol (Miralax) 17 gm PEG BID [facility] Last Admin: 08/20/15 10:17 Dose: Not Given - Constitutional Appears: Non-toxic, No Acute Distress, Chronically Ill - Head Exam Head Exam: ATRAUMATIC, NORMAL INSPECTION, NORMOCEPHALIC - Eye Exam Pupil Exam: NORMAL ACCOMODATION, PERRL - ENT Exam ENT Exam: Mucous Membranes Moist - Respiratory Exam Respiratory Exam: Clear to PA & Lateral, NORMAL BREATHING PATTERN, UNREMARKABLE. absent: Rales, Rhonchi, Wheezes - Cardiovascular Exam Cardiovascular Exam: REGULAR RHYTHM, +S1, +S2 - GI/Abdominal Exam GI & Abdominal Exam: Normal Bowel Sounds, Soft, Unremarkable. absent: Distended , Firm, Tenderness - Extremities Exam Extremities exam: normal capillary refill, pedal pulses present - Neurological Exam Neurological exam: Alert, Oriented x3 - Psychiatric Exam Psychiatric exam: Normal Affect, Normal Mood - Skin Skin Exam: Dry, Intact, Normal Color, Warm Assessment/Plan (1) Anoxic encephalopathy Current Visit: Yes Status: Acute Comment: 08/20 Spontaneous movement, opened eyes to verbal stimulus. Pt status remains unchanged. 08/19 Continue to monitor, no movements or yawning observed. 08/18 Status is unchanged, will monitor for movments or yawning. Patient was awakened with verbal stimuli, does not follow commands Patient with spontaneous movements, yawning trach and PEG in place 08/16/15- per Dietary recommendations, feeding will run at 60cc/hr at start and gradually raised to 100cc/hr x 12 hrs. Feedings will be held 2 hrs pre and post dilatin administration 08/14/15- Per Dr. Salgado, he is on SIMV mode of the ventilation and still has apnea. Unable to wean him more. Monitor (2) Cardiac arrest Current Visit: Yes Status: Acute Comment: s/p V-Tach arrest Continue Plavix 75mg PO daily Continue ASA 325mg PO daily Continue Lisinopril 5mg PO daily (3) Chest congestion Current Visit: Yes Status: Acute Comment: Sputum culture (07/28/15) with Pseudomonas aeruginosa s/p treatment Dr. Armstrong on case-help appreciated patient afebrile (4) Edema of upper extremity Current Visit: Yes Status: Acute Comment: Venous doppler (07/19) - thrombosis of right cephalic vein (superficial) - please see official report Continue warm compresses Monitor (5) Respiratory failure Current Visit: Yes Status: Acute Comment: Dr. Salgado (pulm) on case-help appreciated Patient on trach SIMV Monitor (6) STEMI (ST elevation myocardial infarction) Current Visit: Yes Status: Acute Comment: Continue Lisinopril 5mg PO daily Continue Plavix 75mg PO daily Continue ASA 325mg PO daily s/p stenting (7) Seizures Current Visit: Yes Status: Acute Comment: Continue dilantin 100mg via PEG TID Continue to monitor for seizure activity (8) Thrombophlebitis of superficial veins of upper extremities Current Visit: Yes Status: Acute Comment: Venous doppler (07/19) prelim report - thrombosis of right cephalic vein (superficial) Shows Abnormality Lovenox 40mg SC daily Warm compresses to area 15 minutes, 3x a day f/u final venous doppler report (9) Transaminitis Current Visit: Yes Status: Acute Comment: ALT and AlK phos elevated Hep panel negative Continue to monitor LFTs (10) UTI (lower urinary tract infection) Current Visit: Yes Status: Acute Comment: Urine Cx (07/28): neg UA (07/28): shows no WBC or Leuk esterases Urine CX (07/18): Coag neg staph (positive for Pseudomonas in past) IV Cefepime 1gm q12h started 07/21 and completed 07/26. (11) Bed sore Current Visit: Yes Status: Acute Comment: 08/09- stage one ulcer, healed, per nursing. continue repositioning of patient q2H dolphin mattress (12) Prophylactic measure Current Visit: Yes Status: Acute Comment: Scds Miralax <Donnell Ying M - Last Filed: 08/20/15 15:15> Objective - Vital Signs/Intake and Output Vital Signs (last 24 hours): Vital Signs - 24 hr 08/19/15 08/19/15 08/20/15 20:00 21:41 05:15 Temperature 98.3 F 98 F Pulse Rate 84 89 89 Respiratory 20 20 Rate Blood Pressure 134/84 148/82 O2 Sat by Pulse 100 99 Oximetry 08/20/15 08/20/15 07:50 14:00 Temperature 97.5 F L Pulse Rate 89 80 Respiratory 20 Rate Blood Pressure 131/84 O2 Sat by Pulse 100 Oximetry Intake and Output (last 12 hours): Intake & Output 08/19/15 08/20/15 08/20/15 18:59 06:59 18:59 Intake Total 920 920 Output Total 1000 1000 625 Balance -80 -80 -625 Weight 105 lb Intake: Tube Feeding 720 720 Other 200 200 Output: Urine 1000 1000 625 Urethral (Yoo) 1000 1000 625 Other: # Bowel Movements 0 0 1 - Medications Medications: Current Medications Aspirin (Aspirin) 325 mg PO DAILY [facility] Last Admin: 08/20/15 10:16 Dose: 325 mg Clopidogrel Bisulfate (Plavix) 75 mg PO DAILY [facility] Last Admin: 08/20/15 10:16 Dose: 75 mg Docusate Sodium (Colace Liquid) 100 mg PO DAILY [facility] Last Admin: 08/20/15 10:16 Dose: 100 mg Lisinopril (Zestril) 5 mg PO DAILY [facility] Last Admin: 08/20/15 10:16 Dose: 5 mg Phenytoin (Dilantin) 100 mg PEG TID [facility] Last Admin: 08/20/15 14:32 Dose: 100 mg Polyethylene Glycol (Miralax) 17 gm PEG BID [facility] Last Admin: 08/20/15 10:17 Dose: Not Given Attending/Attestation - Attestation I have personally seen and examined this patient.: Yes I have fully participated in the care of the patient.: Yes I have reviewed all pertinent clinical information: Yes Notes (Text): 08/20/15 15:14 Patient seen and examined at bedside No change in clinical condition I agree with above physical exam and assessment/plan by the resident
[2015-08-21 06:47] LABS: BASO % 0.3 % (0.0-2.0); EOS # 1.1 K/uL (0.0-0.7); EOS % 8.8 % (0.0-4.0); LYMPH # 1.4 K/uL (1.0-4.3); LYMPH % 11.6 % (20.0-40.0); MEAN CELL VOLUME 94.7 fL (80.0-94.0); MEAN CORPUSCULAR HEMOGLOBIN 30.8 pg (27.0-31.0); MEAN CORPUSCULAR HGB CONC 32.5 g/dL (33.0-37.0); MEAN PLATELET VOLUME 8.7 fL (7.2-11.7); MONO % 8.6 % (0.0-10.0); NEUT # 8.6 K/uL (1.8-7.0); NEUT % 70.7 % (50.0-75.0); RBC 3.56 Mil/uL (4.40-5.90); RED CELL DISTRIBUTION WIDTH 15.1 % (11.5-14.5); WHITE BLOOD COUNT 12.1 K/uL (4.8-10.8)
[2015-08-21 07:13] LABS: ALBUMIN 3.1 g/dL (3.5-5.0)
[2015-08-21 07:16] LABS: ALB/GLOB RATIO 0.8 (1.0-2.1); ALT/SGPT 138 U/L (21-72); AST/SGOT 68 U/L (17-59); BLOOD UREA NITROGEN 24 mg/dL (9-20); CALCIUM 8.3 mg/dL (8.4-10.2); GFR NON-AFRICAN AMERICAN > 60
[2015-08-21] MEDS: Phenytoin 100 mg/4 ml Oral Susp UD PEG SCH ×3 (11:24→18:21)
[2015-08-21] MEDS: POLYETHYLENE GLYCOL 3350 17 GM/Dose PACKET PEG SCH (11:26)
--- NOTE | 2015-08-21 13:32 | CP.PCM.PN ---
<Lauri Araya - Last Filed: 08/21/15 13:28> Subjective - Subjective Subjective: Pt was seen and examined at bedside. Pt unable to give ROS due to altered mental status. Pt noted to spontaneously yawn, two full body twitches during examination. Review of Systems - Review of Systems Systems not reviewed;Unavailable: Altered Mental Status Objective - Vital Signs/Intake and Output Vital Signs (last 24 hours): Vital Signs - 24 hr 08/20/15 08/20/15 08/21/15 14:00 21:36 05:43 Temperature 97.5 F L 98 F 97.3 F L Pulse Rate 80 91 H 104 H Respiratory 20 20 20 Rate Blood Pressure 131/84 123/79 132/74 O2 Sat by Pulse 100 100 100 Oximetry 08/21/15 07:50 Temperature Pulse Rate 104 H Respiratory Rate Blood Pressure O2 Sat by Pulse Oximetry Intake and Output (last 12 hours): Intake & Output 08/20/15 08/21/15 08/21/15 18:59 06:59 18:59 Intake Total 1300 Output Total 625 600 Balance -625 700 Weight 105 lb 1.6 oz Intake: Tube Feeding 1200 Other 100 Output: Urine 625 600 Urethral (Yoo) 625 600 Other: # Bowel Movements 1 0 - Medications Medications: Current Medications Aspirin (Aspirin) 325 mg PO DAILY [facility] Last Admin: 08/21/15 11:26 Dose: 325 mg Clopidogrel Bisulfate (Plavix) 75 mg PO DAILY [facility] Last Admin: 08/21/15 11:26 Dose: 75 mg Docusate Sodium (Colace Liquid) 100 mg PO DAILY [facility] Last Admin: 08/21/15 11:23 Dose: 100 mg Lisinopril (Zestril) 5 mg PO DAILY [facility] Last Admin: 08/21/15 11:26 Dose: 5 mg Nystatin (Nystop Topical Powder) 1 applic TOP BID [facility] Petrolatum (Desitin Original) 0 gm TOP BID [facility] Phenytoin (Dilantin) 100 mg PEG TID [facility] Last Admin: 08/21/15 11:24 Dose: 100 mg Polyethylene Glycol (Miralax) 17 gm PEG BID [facility] Last Admin: 08/21/15 11:26 Dose: Not Given - Labs Labs (last 24 hours): Laboratory Results - last 24 hr 08/21/15 06:17 WBC 12.1 H RBC 3.56 L Hgb 11.0 L Hct 33.7 L MCV 94.7 H MCH 30.8 MCHC 32.5 L RDW 15.1 H Plt Count 314 MPV 8.7 Neut % (Auto) 70.7 Lymph % (Auto) 11.[address] [facility] % (Auto) 8.6 Eos % (Auto) 8.8 H Baso % (Auto) 0.3 Neut # 8.6 H Lymph # 1.4 [facility] # 1.0 H Eos # 1.1 H Baso # 0.0 Sodium 137 Potassium 4.4 Chloride 102 Carbon Dioxide 29 Anion Gap 12 BUN 24 H Creatinine 0.5 L Est GFR ( Amer) > 60 Est GFR (Non-Af Amer) > 60 Random Glucose 151 H Calcium 8.3 L Total Bilirubin 0.4 AST 68 H ALT 138 H Alkaline Phosphatase 131 H Total Protein 7.0 Albumin 3.1 L Globulin 3.8 Albumin/Globulin Ratio 0.8 L - Constitutional Appears: Non-toxic, No Acute Distress, Chronically Ill - Head Exam Head Exam: ATRAUMATIC, NORMAL INSPECTION, NORMOCEPHALIC - Eye Exam Pupil Exam: NORMAL ACCOMODATION, PERRL - ENT Exam ENT Exam: Mucous Membranes Moist - Respiratory Exam Respiratory Exam: Clear to PA & Lateral, NORMAL BREATHING PATTERN, UNREMARKABLE. absent: Rales, Rhonchi, Wheezes - Cardiovascular Exam Cardiovascular Exam: REGULAR RHYTHM, +S1, +S2 - GI/Abdominal Exam GI & Abdominal Exam: Normal Bowel Sounds, Soft, Unremarkable. absent: Firm, Guarding, Hernia, Tenderness - Extremities Exam Extremities exam: absent: normal capillary refill, pedal pulses present - Neurological Exam Neurological exam: Altered. absent: Alert, Oriented x3 - Psychiatric Exam Psychiatric exam: absent: Normal Affect, Normal Mood - Skin Skin Exam: Dry, Intact, Normal Color, Warm Assessment/Plan (1) Anoxic encephalopathy Current Visit: Yes Status: Acute Comment: 08/21 Spontaneous movement, opened eyes during examination. Per wound care nurseSabrina, pt is having skin breakdown due to excessive diarrhea. Recommended nystatin powder and sensicare cream to be applied on affected area. Pt's laxatives were removed. Gastric tube feeding will be made into 4 boluses, at 8am, 12pm, 4pm, 8 pm, per dietary recommendations. C diff cultures ordered. 08/20 Spontaneous movement, opened eyes to verbal stimulus. Pt status remains unchanged. 08/19 Continue to monitor, no movements or yawning observed. 08/18 Status is unchanged, will monitor for movments or yawning. Patient was awakened with verbal stimuli, does not follow commands Patient with spontaneous movements, yawning trach and PEG in place 08/16/15- per Dietary recommendations, feeding will run at 60cc/hr at start and gradually raised to 100cc/hr x 12 hrs. Feedings will be held 2 hrs pre and post dilatin administration 08/14/15- Per Dr. Salgado, he is on SIMV mode of the ventilation and still has apnea. Unable to wean him more. Monitor (2) Cardiac arrest Current Visit: Yes Status: Acute Comment: s/p V-Tach arrest Continue Plavix 75mg PO daily Continue ASA 325mg PO daily Continue Lisinopril 5mg PO daily (3) Chest congestion Current Visit: Yes Status: Acute Comment: Sputum culture (07/28/15) with Pseudomonas aeruginosa s/p treatment Dr. Armstrong on case-help appreciated patient afebrile (4) Edema of upper extremity Current Visit: Yes Status: Acute Comment: Venous doppler (07/19) - thrombosis of right cephalic vein (superficial) - please see official report Continue warm compresses Monitor (5) Respiratory failure Current Visit: Yes Status: Acute Comment: Dr. Salgado (pul) on case-help appreciated Patient on trach SIMV Monitor (6) STEMI (ST elevation myocardial infarction) Current Visit: Yes Status: Acute Comment: Continue Lisinopril 5mg PO daily Continue Plavix 75mg PO daily Continue ASA 325mg PO daily s/p stenting (7) Seizures Current Visit: Yes Status: Acute Comment: Continue dilantin 100mg via PEG TID Continue to monitor for seizure activity (8) Thrombophlebitis of superficial veins of upper extremities Current Visit: Yes Status: Acute Comment: Venous doppler (07/19) prelim report - thrombosis of right cephalic vein (superficial) Shows Abnormality Lovenox 40mg SC daily Warm compresses to area 15 minutes, 3x a day f/u final venous doppler report (9) Transaminitis Current Visit: Yes Status: Acute Comment: ALT and AlK phos elevated Hep panel negative Continue to monitor LFTs (10) UTI (lower urinary tract infection) Current Visit: Yes Status: Acute Comment: Urine Cx (07/28): neg UA (07/28): shows no WBC or Leuk esterases Urine CX (07/18): Coag neg staph (positive for Pseudomonas in past) IV Cefepime 1gm q12h started 07/21 and completed 07/26. (11) Bed sore Current Visit: Yes Status: Acute Comment: 08/09- stage one ulcer, healed, per nursing. continue repositioning of patient q2H dolphin mattress (12) Prophylactic measure Current Visit: Yes Status: Acute Comment: Scds Miralax <Donnell Ying - Last Filed: 08/21/15 15:08> Objective - Vital Signs/Intake and Output Vital Signs (last 24 hours): Vital Signs - 24 hr 08/20/15 08/21/15 08/21/15 21:36 05:43 07:50 Temperature 98 F 97.3 F L Pulse Rate 91 H 104 H 104 H Respiratory 20 20 Rate Blood Pressure 123/79 132/74 O2 Sat by Pulse 100 100 Oximetry 08/21/15 13:00 Temperature 98.5 F Pulse Rate 83 Respiratory 20 Rate Blood Pressure 123/74 O2 Sat by Pulse 100 Oximetry Intake and Output (last 12 hours): Intake & Output 08/20/15 08/21/15 08/21/15 18:59 06:59 18:59 Intake Total 1300 Output Total 625 600 Balance -625 700 Weight 105 lb 1.6 oz Intake: Tube Feeding 1200 Other 100 Output: Urine 625 600 Urethral (Yoo) 625 600 Other: # Bowel Movements 1 0 - Medications Medications: Current Medications Aspirin (Aspirin) 325 mg PO DAILY [facility] Last Admin: 08/21/15 11:26 Dose: 325 mg Clopidogrel Bisulfate (Plavix) 75 mg PO DAILY [facility] Last Admin: 08/21/15 11:26 Dose: 75 mg Lisinopril (Zestril) 5 mg PO DAILY [facility] Last Admin: 08/21/15 11:26 Dose: 5 mg Nystatin (Nystop Topical Powder) 1 applic TOP BID [facility] Petrolatum (Desitin Original) 0 gm TOP BID [facility] Phenytoin (Dilantin) 100 mg PEG TID [facility] Last Admin: 08/21/15 13:55 Dose: 100 mg Polyethylene Glycol (Miralax) 17 gm PEG BID [facility] Last Admin: 08/21/15 11:26 Dose: Not Given - Labs Labs (last 24 hours): Laboratory Results - last 24 hr 08/21/15 06:17 WBC 12.1 H RBC 3.56 L Hgb 11.0 L Hct 33.7 L MCV 94.7 H MCH 30.8 MCHC 32.5 L RDW 15.1 H Plt Count 314 MPV 8.7 Neut % (Auto) 70.7 Lymph % (Auto) 11.[address] [facility] % (Auto) 8.6 Eos % (Auto) 8.8 H Baso % (Auto) 0.3 Neut # 8.6 H Lymph # 1.4 [facility] # 1.0 H Eos # 1.1 H Baso # 0.0 Sodium 137 Potassium 4.4 Chloride 102 Carbon Dioxide 29 Anion Gap 12 BUN 24 H Creatinine 0.5 L Est GFR ( Amer) > 60 Est GFR (Non-Af Amer) > 60 Random Glucose 151 H Calcium 8.3 L Total Bilirubin 0.4 AST 68 H ALT 138 H Alkaline Phosphatase 131 H Total Protein 7.0 Albumin 3.1 L Globulin 3.8 Albumin/Globulin Ratio 0.8 L Attending/Attestation - Attestation I have personally seen and examined this patient.: Yes I have fully participated in the care of the patient.: Yes I have reviewed all pertinent clinical information: Yes Notes (Text): 08/21/15 15:07 Patient seen and examined at bedside Discussed the plan of care with the resident I agree with above physical exam and assessment/plan by the resident
[2015-08-21] MEDS: Zinc Oxide Topical 30 gm Tube TOP SCH (18:21)
[2015-08-22] MEDS: Phenytoin 100 mg/4 ml Oral Susp UD PEG SCH ×3 (10:24→18:25)
[2015-08-22] MEDS: Zinc Oxide Topical 30 gm Tube TOP SCH ×2 (10:31→18:25)
--- NOTE | 2015-08-22 11:23 | CP.PCM.PN ---
<MarshalLauri - Last Filed: 08/22/15 11:19> Subjective - Subjective Subjective: Pt was seen and examined at bedside Pt unable to give ROS due to altered mental state Pt is awake and alert, unresponsive to verbal or physical stimuli Pt still spontaneously twitches/ moves extremities. Review of Systems - Review of Systems Systems not reviewed;Unavailable: Altered Mental Status - Cardiovascular Cardiovascular: UNREMARKABLE Objective - Vital Signs/Intake and Output Vital Signs (last 24 hours): Vital Signs - 24 hr 08/21/15 08/21/15 08/22/15 13:00 21:41 05:31 Temperature 98.5 F 97.9 F 98.1 F Pulse Rate 83 80 98 H Respiratory 20 20 20 Rate Blood Pressure 123/74 118/76 100/66 O2 Sat by Pulse 100 100 99 Oximetry Intake and Output (last 12 hours): Intake & Output 08/21/15 08/22/15 08/22/15 18:59 06:59 18:59 Intake Total 300 1300 Output Total 600 Balance 300 700 Weight 105 lb 6 oz Intake: Tube Feeding 300 1200 Other 100 Output: Urine 600 Urethral (Yoo) 600 Other: # Bowel Movements 1 - Medications Medications: Current Medications Aspirin (Aspirin) 325 mg PO DAILY [facility] Last Admin: 08/22/15 10:24 Dose: 325 mg Clopidogrel Bisulfate (Plavix) 75 mg PO DAILY [facility] Last Admin: 08/22/15 10:24 Dose: 75 mg Lisinopril (Zestril) 5 mg PO DAILY [facility] Last Admin: 08/22/15 10:24 Dose: 5 mg Nystatin (Nystop Topical Powder) 1 applic TOP BID [facility] Last Admin: 08/22/15 10:33 Dose: 1 applic Petrolatum (Desitin Original) 0 gm TOP BID [facility] Last Admin: 08/22/15 10:31 Dose: 1 applic Phenytoin (Dilantin) 100 mg PEG TID [facility] Last Admin: 08/22/15 10:24 Dose: 100 mg Polyethylene Glycol (Miralax) 17 gm PEG BID [facility] Last Admin: 08/21/15 11:26 Dose: Not Given - Constitutional Appears: Non-toxic, No Acute Distress, Chronically Ill - Head Exam Head Exam: ATRAUMATIC, NORMAL INSPECTION, NORMOCEPHALIC - Eye Exam Pupil Exam: NORMAL ACCOMODATION, PERRL - ENT Exam ENT Exam: Mucous Membranes Moist - Respiratory Exam Respiratory Exam: Clear to PA & Lateral, NORMAL BREATHING PATTERN, UNREMARKABLE. absent: Rales, Rhonchi, Wheezes - Cardiovascular Exam Cardiovascular Exam: REGULAR RHYTHM, +S1, +S2 - GI/Abdominal Exam GI & Abdominal Exam: Normal Bowel Sounds, Soft, Unremarkable. absent: Distended , Firm, Tenderness - Extremities Exam Extremities exam: normal capillary refill, pedal pulses present Additional comments: bilateral upper extremity appear edematous. - Neurological Exam Neurological exam: Altered. absent: Alert, Oriented x3 - Psychiatric Exam Psychiatric exam: Normal Affect, Normal Mood - Skin Skin Exam: Dry, Intact, Warm. absent: Normal Color Assessment/Plan (1) Anoxic encephalopathy Current Visit: Yes Status: Acute Comment: 08/22 Spontaneous movement, eyes open. given one dose of Lasix for increased swelling in upper extremities. GT bolus adjusted to dietary recommendations. 08/21 Spontaneous movement, opened eyes during examination. Per wound care nurse Sabrina, pt is having skin breakdown due to excessive diarrhea. Recommended nystatin powder and sensicare cream to be applied on affected area. Pt's laxatives were removed. Gastric tube feeding will be made into 4 boluses, at 8am , 12pm, 4pm, 8 pm, per dietary recommendations. C diff cultures ordered. 08/20 Spontaneous movement, opened eyes to verbal stimulus. Pt status remains unchanged. 08/19 Continue to monitor, no movements or yawning observed. 08/18 Status is unchanged, will monitor for movments or yawning. Patient was awakened with verbal stimuli, does not follow commands Patient with spontaneous movements, yawning trach and PEG in place 08/16/15- per Dietary recommendations, feeding will run at 60cc/hr at start and gradually raised to 100cc/hr x 12 hrs. Feedings will be held 2 hrs pre and post dilatin administration 08/14/15- Per Dr. Salgado, he is on SIMV mode of the ventilation and still has apnea. Unable to wean him more. Monitor (2) Cardiac arrest Current Visit: Yes Status: Acute Comment: s/p V-Tach arrest Continue Plavix 75mg PO daily Continue ASA 325mg PO daily Continue Lisinopril 5mg PO daily (3) Chest congestion Current Visit: Yes Status: Acute Comment: Sputum culture (07/28/15) with Pseudomonas aeruginosa s/p treatment Dr. Armstrong on case-help appreciated patient afebrile (4) Edema of upper extremity Current Visit: Yes Status: Acute Comment: Venous doppler (07/19) - thrombosis of right cephalic vein (superficial) - please see official report Continue warm compresses Monitor (5) Respiratory failure Current Visit: Yes Status: Acute Comment: Dr. Salgado (pul) on case-help appreciated Patient on trach SIMV Monitor (6) STEMI (ST elevation myocardial infarction) Current Visit: Yes Status: Acute Comment: Continue Lisinopril 5mg PO daily Continue Plavix 75mg PO daily Continue ASA 325mg PO daily s/p stenting (7) Seizures Current Visit: Yes Status: Acute Comment: Continue dilantin 100mg via PEG TID Continue to monitor for seizure activity (8) Thrombophlebitis of superficial veins of upper extremities Current Visit: Yes Status: Acute Comment: Venous doppler (07/19) prelim report - thrombosis of right cephalic vein (superficial) Shows Abnormality Lovenox 40mg SC daily Warm compresses to area 15 minutes, 3x a day f/u final venous doppler report (9) Transaminitis Current Visit: Yes Status: Acute Comment: ALT and AlK phos elevated Hep panel negative Continue to monitor LFTs (10) UTI (lower urinary tract infection) Current Visit: Yes Status: Acute Comment: Urine Cx (07/28): neg UA (07/28): shows no WBC or Leuk esterases Urine CX (07/18): Coag neg staph (positive for Pseudomonas in past) IV Cefepime 1gm q12h started 07/21 and completed 07/26. (11) Bed sore Current Visit: Yes Status: Acute Comment: 08/09- stage one ulcer, healed, per nursing. continue repositioning of patient q2H dolphin mattress (12) Prophylactic measure Current Visit: Yes Status: Acute Comment: Scds Miralax <Donnell Ying M - Last Filed: 08/22/15 14:13> Objective - Vital Signs/Intake and Output Vital Signs (last 24 hours): Vital Signs - 24 hr 08/21/15 08/22/15 08/22/15 21:41 05:31 12:22 Temperature 97.9 F 98.1 F Pulse Rate 80 98 H Respiratory 20 20 Rate Blood Pressure 118/76 100/66 102/72 O2 Sat by Pulse 100 99 Oximetry Intake and Output (last 12 hours): Intake & Output 08/21/15 08/22/15 08/22/15 18:59 06:59 18:59 Intake Total 300 1300 Output Total 600 Balance 300 700 Weight 105 lb 6 oz Intake: Tube Feeding 300 1200 Other 100 Output: Urine 600 Urethral (Yoo) 600 Other: # Bowel Movements 1 - Medications Medications: Current Medications Aspirin (Aspirin) 325 mg PO DAILY [facility] Last Admin: 08/22/15 10:24 Dose: 325 mg Clopidogrel Bisulfate (Plavix) 75 mg PO DAILY [facility] Last Admin: 08/22/15 10:24 Dose: 75 mg Lisinopril (Zestril) 5 mg PO DAILY [facility] Last Admin: 08/22/15 10:24 Dose: 5 mg Nystatin (Nystop Topical Powder) 1 applic TOP BID [facility] Last Admin: 08/22/15 10:33 Dose: 1 applic Petrolatum (Desitin Original) 0 gm TOP BID [facility] Last Admin: 08/22/15 10:31 Dose: 1 applic Phenytoin (Dilantin) 100 mg PEG TID [facility] Last Admin: 08/22/15 13:46 Dose: 100 mg Polyethylene Glycol (Miralax) 17 gm PEG BID [facility] Last Admin: 08/21/15 11:26 Dose: Not Given - Labs Labs (last 24 hours): Laboratory Results - last 24 hr 08/21/15 06:00 C. difficile Ag & Toxin Negative Attending/Attestation - Attestation I have personally seen and examined this patient.: Yes I have fully participated in the care of the patient.: Yes I have reviewed all pertinent clinical information: Yes Notes (Text): 08/22/15 14:12 Patient seen and examined at bedside. There is no change in clinical condition. His feeding has been adjusted to cater for dosing of medication. We will continue current management. The plan of care discussed with the resident and agree with the above history and physical, physical examination, and assessment plan by the resident.
[2015-08-23] MEDS: Phenytoin 100 mg/4 ml Oral Susp UD PEG SCH ×3 (10:51→17:54)
[2015-08-23] MEDS: Zinc Oxide Topical 30 gm Tube TOP SCH (10:52)
[2015-08-23 13:54] LABS: BASO # 0.1 K/uL (0.0-0.2); BASO % 0.4 % (0.0-2.0); EOS # 1.1 K/uL (0.0-0.7); HEMOGLOBIN 11.3 g/dL (12.0-18.0); LYMPH # 1.2 K/uL (1.0-4.3); LYMPH % 9.1 % (20.0-40.0); MEAN CELL VOLUME 94.8 fL (80.0-94.0); MEAN CORPUSCULAR HGB CONC 32.7 g/dL (33.0-37.0); MEAN PLATELET VOLUME 8.7 fL (7.2-11.7); MONO # 1.1 K/uL (0.0-0.8); MONO % 8.1 % (0.0-10.0); NEUT # 10.1 K/uL (1.8-7.0); NEUT % 74.4 % (50.0-75.0); PLATELET COUNT 295 K/uL (130-400); RBC 3.66 Mil/uL (4.40-5.90); RED CELL DISTRIBUTION WIDTH 14.9 % (11.5-14.5); WHITE BLOOD COUNT 13.6 K/uL (4.8-10.8)
--- NOTE | 2015-08-23 13:58 | CP.PCM.PN ---
<Sandra Mercedes - Last Filed: 08/23/15 13:55> Subjective - Subjective Subjective: Pt seen and examined. Pt is vented and not responsive to verbal stimuli; however , responsive to painful stimuli and therefore unable to obtain ROS. Pt's pupils are equal and reactive to light, pt's corneal and gag reflexes are intact. Review of Systems - Review of Systems Systems not reviewed;Unavailable: Altered Mental Status Objective - Vital Signs/Intake and Output Vital Signs (last 24 hours): Vital Signs - 24 hr 08/22/15 08/22/15 08/23/15 15:03 21:50 05:49 Temperature 97.9 F 97 F L 98.5 F Pulse Rate 109 H 90 88 Respiratory 20 20 20 Rate Blood Pressure 138/97 H 135/86 113/67 O2 Sat by Pulse 100 100 100 Oximetry Intake and Output (last 12 hours): Intake & Output 08/22/15 08/23/15 08/23/15 18:59 06:59 18:59 Output Total 1100 500 Balance -1100 -500 Weight 105 lb Output: Urine 1100 500 Urethral (Yoo) 1100 500 Other: # Bowel Movements 2 2 - Medications Medications: Current Medications Aspirin (Aspirin) 325 mg PO DAILY [facility] Last Admin: 08/23/15 10:51 Dose: 325 mg Clopidogrel Bisulfate (Plavix) 75 mg PO DAILY [facility] Last Admin: 08/23/15 10:51 Dose: 75 mg Furosemide (Lasix) 40 mg IVP ONCE ONE Stop: 08/24/15 11:05 Lisinopril (Zestril) 5 mg PO DAILY [facility] Last Admin: 08/23/15 10:51 Dose: 5 mg Nystatin (Nystop Topical Powder) 1 applic TOP BID [facility] Last Admin: 08/23/15 10:52 Dose: 1 applic Petrolatum (Desitin Original) 0 gm TOP BID [facility] Last Admin: 08/23/15 10:52 Dose: 1 applic Phenytoin (Dilantin) 100 mg PEG TID [facility] Last Admin: 08/23/15 10:51 Dose: 100 mg Polyethylene Glycol (Miralax) 17 gm PEG BID [facility] Last Admin: 08/21/15 11:26 Dose: Not Given - Constitutional Appears: No Acute Distress, Chronically Ill - Head Exam Head Exam: ATRAUMATIC, NORMAL INSPECTION, NORMOCEPHALIC - Eye Exam Eye Exam: PERRL - ENT Exam ENT Exam: Mucous Membranes Moist - Respiratory Exam Respiratory Exam: Clear to PA & Lateral, NORMAL BREATHING PATTERN - Cardiovascular Exam Cardiovascular Exam: REGULAR RHYTHM, +S1, +S2 - GI/Abdominal Exam GI & Abdominal Exam: Normal Bowel Sounds, Soft - Neurological Exam Neurological exam: Altered - Skin Skin Exam: Dry Assessment/Plan (1) Anoxic encephalopathy Current Visit: Yes Status: Acute Comment: 08/23 Gave one dose of Lasix today, cont diet as ordered. monitor 08/22 Spontaneous movement, eyes open. given one dose of Lasix for increased swelling in upper extremities. GT bolus adjusted to dietary recommendations. 08/21 Spontaneous movement, opened eyes during examination. Per wound care nurse , Sabrina, pt is having skin breakdown due to excessive diarrhea. Recommended nystatin powder and sensicare cream to be applied on affected area. Pt's laxatives were removed. Gastric tube feeding will be made into 4 boluses, at 8am , 12pm, 4pm, 8 pm, per dietary recommendations. C diff cultures ordered. 08/20 Spontaneous movement, opened eyes to verbal stimulus. Pt status remains unchanged. (2) UTI (lower urinary tract infection) Current Visit: Yes Status: Acute Comment: Urine Cx (07/28): neg UA (07/28): shows no WBC or Leuk esterases Urine CX (07/18): Coag neg staph (positive for Pseudomonas in past) IV Cefepime 1gm q12h started 07/21 and completed 07/26. (3) Chest congestion Current Visit: Yes Status: Acute Comment: Sputum culture (07/28/15) with Pseudomonas aeruginosa s/p treatment Dr. Armstrong on case-help appreciated patient afebrile (4) Transaminitis Current Visit: Yes Status: Acute Comment: ALT and AlK phos elevated Hep panel negative Continue to monitor LFTs (5) Thrombophlebitis of superficial veins of upper extremities Current Visit: Yes Status: Acute Comment: Venous doppler (07/19) prelim report - thrombosis of right cephalic vein (superficial) Shows Abnormality Lovenox 40mg SC daily Warm compresses to area 15 minutes, 3x a day f/u final venous doppler report (6) Edema of upper extremity Current Visit: Yes Status: Acute Comment: Venous doppler (07/19) - thrombosis of right cephalic vein (superficial) - please see official report Continue warm compresses Monitor (7) Respiratory failure Current Visit: Yes Status: Acute Comment: Dr. Salgado (pul) on case-help appreciated Patient on trach SIMV Monitor (8) STEMI (ST elevation myocardial infarction) Current Visit: Yes Status: Acute Comment: Continue Lisinopril 5mg PO daily Continue Plavix 75mg PO daily Continue ASA 325mg PO daily s/p stenting (9) Seizures Current Visit: Yes Status: Acute Comment: Continue dilantin 100mg via PEG TID Continue to monitor for seizure activity (10) Prophylactic measure Current Visit: Yes Status: Acute Comment: Scds Miralax <StepanDonnell M - Last Filed: 08/23/15 16:07> Objective - Vital Signs/Intake and Output Vital Signs (last 24 hours): Vital Signs - 24 hr 08/22/15 08/23/15 08/23/15 21:50 05:49 07:40 Temperature 97 F L 98.5 F Pulse Rate 90 88 91 H Respiratory 20 20 Rate Blood Pressure 135/86 113/67 O2 Sat by Pulse 100 100 Oximetry 08/23/15 08/23/15 14:00 16:02 Temperature 97.7 F Pulse Rate 91 H Respiratory 20 Rate Blood Pressure 142/85 142/85 O2 Sat by Pulse 100 Oximetry Intake and Output (last 12 hours): Intake & Output 08/22/15 08/23/15 08/23/15 18:59 06:59 18:59 Output Total 1100 500 500 Balance -1100 -500 -500 Weight 105 lb Output: Urine 1100 500 500 Urethral (Yoo) 1100 500 500 Other: # Bowel Movements 2 2 - Medications Medications: Current Medications Aspirin (Aspirin) 325 mg PO DAILY [facility] Last Admin: 08/23/15 10:51 Dose: 325 mg Clopidogrel Bisulfate (Plavix) 75 mg PO DAILY [facility] Last Admin: 08/23/15 10:51 Dose: 75 mg Lisinopril (Zestril) 5 mg PO DAILY [facility] Last Admin: 08/23/15 10:51 Dose: 5 mg Nystatin (Nystop Topical Powder) 1 applic TOP BID [facility] Last Admin: 08/23/15 10:52 Dose: 1 applic Petrolatum (Desitin Original) 0 gm TOP BID [facility] Last Admin: 08/23/15 10:52 Dose: 1 applic Phenytoin (Dilantin) 100 mg PEG TID [facility] Last Admin: 08/23/15 14:16 Dose: 100 mg Polyethylene Glycol (Miralax) 17 gm PEG BID [facility] Last Admin: 08/21/15 11:26 Dose: Not Given - Labs Labs (last 24 hours): Laboratory Results - last 24 hr 08/23/15 13:43 WBC 13.6 H RBC 3.66 L Hgb 11.3 L Hct 34.6 L MCV 94.8 H MCH 31.0 MCHC 32.7 L RDW 14.9 H Plt Count 295 MPV 8.7 Neut % (Auto) 74.4 Lymph % (Auto) 9.1 L [place] % (Auto) 8.1 Eos % (Auto) 8.0 H Baso % (Auto) 0.4 Neut # 10.1 H Lymph # 1.2 [place] # 1.1 H Eos # 1.1 H Baso # 0.1 Neutrophils % (Manual) 76 H Lymphocytes % (Manual) 7 L Monocytes % (Manual) 10 Eosinophils % (Manual) 7 H Platelet Estimate Normal Hypochromasia (manual) Slight Poikilocytosis (manual Slight Anisocytosis (manual) Slight Target Cells Slight Ovalocytes Slight Lily Cells Slight Sodium 138 Potassium 4.2 Chloride 100 Carbon Dioxide 30 Anion Gap 13 BUN 19 Creatinine 0.4 L Est GFR ( Amer) > 60 Est GFR (Non-Af Amer) > 60 Random Glucose 136 H Calcium 8.5 Total Bilirubin 0.6 AST 70 H ALT 159 H Alkaline Phosphatase 131 H Total Protein 7.2 Albumin 3.3 L Globulin 3.9 Albumin/Globulin Ratio 0.8 L Attending/Attestation - Attestation I have personally seen and examined this patient.: Yes I have fully participated in the care of the patient.: Yes I have reviewed all pertinent clinical information: Yes Notes (Text): 08/23/15 16:06 Patient seen and examined at bedside with the resident. There is no change in clinical condition. We will continue the current management. Patient's family is considering LTAC. 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 08/23/15 16:07
[2015-08-23 14:04] LABS: ALBUMIN 3.3 g/dL (3.5-5.0)
[2015-08-23 14:06] LABS: GFR NON-AFRICAN AMERICAN > 60
[2015-08-23 14:07] LABS: ALT/SGPT 159 U/L (21-72); AST/SGOT 70 U/L (17-59); BLOOD UREA NITROGEN 19 mg/dL (9-20); CALCIUM 8.5 mg/dL (8.4-10.2)
[2015-08-23 14:11] LABS: ALB/GLOB RATIO 0.8 (1.0-2.1)
[2015-08-23 15:17] LABS: ANISOCYTOSIS SLIGHT; BURR CELLS SLIGHT; EOSINOPHIL 7 % (0-4); HYPOCHROMIC SLIGHT; LYMPHOCYTE 7 % (20-40); MONOCYTE 10 % (0-10); NEUTROPHIL 76 % (50-75); OVALOCYTES SLIGHT; PLATELET ESTIMATE NORMAL (NORMAL); POIKILOCYTOSIS SLIGHT; TARGET CELLS SLIGHT; TOTAL CELLS COUNTED 100
[2015-08-24 07:28] LABS: BASO % 0.3 % (0.0-2.0); EOS # 1.1 K/uL (0.0-0.7); EOS % 8.9 % (0.0-4.0); HEMOGLOBIN 11.7 g/dL (12.0-18.0); LYMPH # 1.1 K/uL (1.0-4.3); LYMPH % 9.1 % (20.0-40.0); MEAN CELL VOLUME 94.3 fL (80.0-94.0); MEAN CORPUSCULAR HEMOGLOBIN 31.2 pg (27.0-31.0); MEAN CORPUSCULAR HGB CONC 33.1 g/dL (33.0-37.0); MEAN PLATELET VOLUME 8.3 fL (7.2-11.7); MONO # 1.1 K/uL (0.0-0.8); MONO % 8.9 % (0.0-10.0); NEUT # 9.1 K/uL (1.8-7.0); NEUT % 72.8 % (50.0-75.0); PLATELET COUNT 307 K/uL (130-400); RBC 3.75 Mil/uL (4.40-5.90); RED CELL DISTRIBUTION WIDTH 15.1 % (11.5-14.5); WHITE BLOOD COUNT 12.5 K/uL (4.8-10.8)
[2015-08-24 08:12] LABS: ALBUMIN 3.4 g/dL (3.5-5.0)
[2015-08-24 08:15] LABS: ALT/SGPT 189 U/L (21-72); AST/SGOT 93 U/L (17-59); BLOOD UREA NITROGEN 23 mg/dL (9-20); GFR NON-AFRICAN AMERICAN > 60
[2015-08-24 08:16] LABS: CALCIUM 8.7 mg/dL (8.4-10.2)
[2015-08-24 08:18] LABS: ALB/GLOB RATIO 0.9 (1.0-2.1)
[2015-08-24] MEDS: Phenytoin 100 mg/4 ml Oral Susp UD PEG SCH ×3 (09:57→17:48)
[2015-08-24] MEDS: Zinc Oxide Topical 30 gm Tube TOP SCH ×2 (10:00→17:49)
[2015-08-24 10:33] LABS: BANDS 4 % (0-0); EOSINOPHIL 7 % (0-4); LYMPHOCYTE 8 % (20-40); MONOCYTE 7 % (0-10); NEUTROPHIL 74 % (50-75); TOTAL CELLS COUNTED 100
[2015-08-24 10:34] LABS: ANISOCYTOSIS SLIGHT; HYPOCHROMIC SLIGHT; PLATELET ESTIMATE NORMAL (NORMAL); POIKILOCYTOSIS SLIGHT; POLYCHROMIC SLIGHT
--- NOTE | 2015-08-24 11:42 | CP.PCM.PN ---
<Sandra Mercedes - Last Filed: 08/24/15 11:38> Subjective - Subjective Subjective: Pt seen and examined. Pt is on a vent and unresponsive to verbal stimuli and therefore unable to obtain ROS. Pt responds to painfull stimuli, but unable to follow commands. Pt's pupils are equal and reactive to light. Corneal reflexes are intact. Pt continues to have 1+ pitting edema in hands and legs. Will monitor. Review of Systems - Review of Systems Systems not reviewed;Unavailable: Altered Mental Status Objective - Vital Signs/Intake and Output Vital Signs (last 24 hours): Vital Signs - 24 hr 08/23/15 08/23/15 08/23/15 14:00 16:02 21:13 Temperature 97.7 F 98.1 F Pulse Rate 91 H 93 H Respiratory 20 20 Rate Blood Pressure 142/85 142/85 149/98 H O2 Sat by Pulse 100 100 Oximetry 08/24/15 08/24/15 05:00 09:00 Temperature 98.9 F Pulse Rate 90 Respiratory 18 Rate Blood Pressure 97/65 L 110/65 O2 Sat by Pulse 100 Oximetry Intake and Output (last 12 hours): Intake & Output 08/23/15 08/24/15 08/24/15 18:59 06:59 18:59 Intake Total 700 Output Total 500 200 Balance -500 -200 700 Weight 103 lb 1.6 oz Intake: Tube Feeding 700 Output: Urine 500 200 Urethral (Yoo) 500 200 - Medications Medications: Current Medications Aspirin (Aspirin) 325 mg PO DAILY [facility] Last Admin: 08/24/15 09:58 Dose: 325 mg Clopidogrel Bisulfate (Plavix) 75 mg PO DAILY [facility] Last Admin: 08/24/15 09:58 Dose: 75 mg Lisinopril (Zestril) 5 mg PO DAILY [facility] Last Admin: 08/24/15 09:58 Dose: 5 mg Nystatin (Nystop Topical Powder) 1 applic TOP BID [facility] Last Admin: 08/23/15 10:52 Dose: 1 applic Petrolatum (Desitin Original) 0 gm TOP BID [facility] Last Admin: 08/23/15 10:52 Dose: 1 applic Phenytoin (Dilantin) 100 mg PEG TID [facility] Last Admin: 08/24/15 09:57 Dose: 100 mg Polyethylene Glycol (Miralax) 17 gm PEG BID [facility] Last Admin: 08/21/15 11:26 Dose: Not Given - Labs Labs (last 24 hours): Laboratory Results - last 24 hr 08/23/15 08/24/15 13:43 07:10 WBC 13.6 H 12.5 H RBC 3.66 L 3.75 L Hgb 11.3 L 11.7 L Hct 34.6 L 35.3 MCV 94.8 H 94.3 H MCH 31.0 31.2 H MCHC 32.7 L 33.1 RDW 14.9 H 15.1 H Plt Count 295 307 MPV 8.7 8.3 Neut % (Auto) 74.4 72.8 Lymph % (Auto) 9.1 L 9.1 L [place] % (Auto) 8.1 8.9 Eos % (Auto) 8.0 H 8.9 H Baso % (Auto) 0.4 0.3 Neut # 10.1 H 9.1 H Lymph # 1.2 1.1 [place] # 1.1 H 1.1 H Eos # 1.1 H 1.1 H Baso # 0.1 0.0 Neutrophils % (Manual) 76 H 74 Band Neutrophils % 4 H Lymphocytes % (Manual) 7 L 8 L Monocytes % (Manual) 10 7 Eosinophils % (Manual) 7 H 7 H Platelet Estimate Normal Normal Polychromasia Slight Hypochromasia (manual) Slight Slight Poikilocytosis (manual Slight Slight Anisocytosis (manual) Slight Slight Target Cells Slight Ovalocytes Slight [place] Cells Slight Sodium 138 140 Potassium 4.2 4.3 Chloride 100 99 Carbon Dioxide 30 33 H Anion Gap 13 12 BUN 19 23 H Creatinine 0.4 L 0.6 L Est GFR ( Amer) > 60 > 60 Est GFR (Non-Af Amer) > 60 > 60 Random Glucose 136 H 139 H Calcium 8.5 8.7 Phosphorus 5.0 H Magnesium 2.2 Total Bilirubin 0.6 0.6 AST 70 H 93 H D ALT 159 H 189 H Alkaline Phosphatase 131 H 136 H Total Protein 7.2 7.4 Albumin 3.3 L 3.4 L Globulin 3.9 4.0 H Albumin/Globulin Ratio 0.8 L 0.9 L - Constitutional Appears: Non-toxic, No Acute Distress - Head Exam Head Exam: ATRAUMATIC, NORMAL INSPECTION, NORMOCEPHALIC - Eye Exam Eye Exam: Normal appearance, PERRL Pupil Exam: PERRL - ENT Exam ENT Exam: Mucous Membranes Moist - Respiratory Exam Respiratory Exam: Clear to PA & Lateral, NORMAL BREATHING PATTERN - Cardiovascular Exam Cardiovascular Exam: REGULAR RHYTHM, +S1, +S2 - GI/Abdominal Exam GI & Abdominal Exam: Hypoactive Bowel Sounds, Soft - Extremities Exam Extremities exam: pedal edema (1+), pedal pulses present - Neurological Exam Neurological exam: Altered - Skin Skin Exam: Dry, Normal Color Assessment/Plan (1) Anoxic encephalopathy Current Visit: Yes Status: Acute Comment: 08/24 Pt not responsive to verbal stimuli, only painful, unable to follow commands, pt continues to have swelling, minimal improvement, will continue to monitor, continue with dietary recommendations 08/23 Gave one dose of Lasix today, cont diet as ordered. monitor 08/22 Spontaneous movement, eyes open. given one dose of Lasix for increased swelling in upper extremities. GT bolus adjusted to dietary recommendations. 08/21 Spontaneous movement, opened eyes during examination. Per wound care nurse Sabrina, pt is having skin breakdown due to excessive diarrhea. Recommended nystatin powder and sensicare cream to be applied on affected area. Pt's laxatives were removed. Gastric tube feeding will be made into 4 boluses, at 8am , 12pm, 4pm, 8 pm, per dietary recommendations. C diff cultures ordered. (2) UTI (lower urinary tract infection) Current Visit: Yes Status: Acute Comment: Urine Cx (07/28): neg UA (07/28): shows no WBC or Leuk esterases Urine CX (07/18): Coag neg staph (positive for Pseudomonas in past) IV Cefepime 1gm q12h started 07/21 and completed 07/26. (3) Chest congestion Current Visit: Yes Status: Acute Comment: Sputum culture (07/28/15) with Pseudomonas aeruginosa s/p treatment Dr. Armstrong on case-help appreciated patient afebrile (4) Transaminitis Current Visit: Yes Status: Acute Comment: ALT and AlK phos elevated Hep panel negative Continue to monitor LFTs (5) Thrombophlebitis of superficial veins of upper extremities Current Visit: Yes Status: Acute Comment: Venous doppler (07/19) prelim report - thrombosis of right cephalic vein (superficial) Shows Abnormality Lovenox 40mg SC daily Warm compresses to area 15 minutes, 3x a day f/u final venous doppler report (6) Edema of upper extremity Current Visit: Yes Status: Acute Comment: Venous doppler (07/19) - thrombosis of right cephalic vein (superficial) - please see official report Continue warm compresses Monitor (7) Respiratory failure Current Visit: Yes Status: Acute Comment: Dr. Salgado (pul) on case-help appreciated Patient on trach SIMV Monitor (8) STEMI (ST elevation myocardial infarction) Current Visit: Yes Status: Acute Comment: Continue Lisinopril 5mg PO daily Continue Plavix 75mg PO daily Continue ASA 325mg PO daily s/p stenting (9) Seizures Current Visit: Yes Status: Acute Comment: Continue dilantin 100mg via PEG TID Continue to monitor for seizure activity (10) Prophylactic measure Current Visit: Yes Status: Acute Comment: Scds Miralax <Donnell Ying M - Last Filed: 08/24/15 15:13> Objective - Vital Signs/Intake and Output Vital Signs (last 24 hours): Vital Signs - 24 hr 08/23/15 08/23/15 08/24/15 16:02 21:13 05:00 Temperature 98.1 F 98.9 F Pulse Rate 93 H 90 Respiratory 20 18 Rate Blood Pressure 142/85 149/98 H 97/65 L O2 Sat by Pulse 100 100 Oximetry 08/24/15 08/24/15 09:00 13:32 Temperature 98.6 F Pulse Rate 86 Respiratory 20 Rate Blood Pressure 110/65 131/83 O2 Sat by Pulse 100 Oximetry Intake and Output (last 12 hours): Intake & Output 08/23/15 08/24/15 08/24/15 18:59 06:59 18:59 Intake Total 700 Output Total 500 200 200 Balance -500 -200 500 Weight 103 lb 1.6 oz Intake: Tube Feeding 700 Output: Urine 500 200 200 Urethral (Yoo) 500 200 200 - Medications Medications: Current Medications Aspirin (Aspirin) 325 mg PO DAILY [facility] Last Admin: 08/24/15 09:58 Dose: 325 mg Clopidogrel Bisulfate (Plavix) 75 mg PO DAILY [facility] Last Admin: 08/24/15 09:58 Dose: 75 mg Lisinopril (Zestril) 5 mg PO DAILY [facility] Last Admin: 08/24/15 09:58 Dose: 5 mg Nystatin (Nystop Topical Powder) 1 applic TOP BID [facility] Last Admin: 08/24/15 10:00 Dose: 1 applic Petrolatum (Desitin Original) 0 gm TOP BID [facility] Last Admin: 08/24/15 10:00 Dose: 1 applic Phenytoin (Dilantin) 100 mg PEG TID [facility] Last Admin: 08/24/15 13:35 Dose: 100 mg Polyethylene Glycol (Miralax) 17 gm PEG BID [facility] Last Admin: 08/21/15 11:26 Dose: Not Given - Labs Labs (last 24 hours): Laboratory Results - last 24 hr 08/23/15 08/24/15 13:43 07:10 WBC 12.5 H RBC 3.75 L Hgb 11.7 L Hct 35.3 MCV 94.3 H MCH 31.2 H MCHC 33.1 RDW 15.1 H Plt Count 307 MPV 8.3 Neut % (Auto) 72.8 Lymph % (Auto) 9.1 L [place] % (Auto) 8.9 Eos % (Auto) 8.9 H Baso % (Auto) 0.3 Neut # 9.1 H Lymph # 1.1 [place] # 1.1 H Eos # 1.1 H Baso # 0.0 Neutrophils % (Manual) 76 H 74 Band Neutrophils % 4 H Lymphocytes % (Manual) 7 L 8 L Monocytes % (Manual) 10 7 Eosinophils % (Manual) 7 H 7 H Platelet Estimate Normal Normal Polychromasia Slight Hypochromasia (manual) Slight Slight Poikilocytosis (manual Slight Slight Anisocytosis (manual) Slight Slight Target Cells Slight Ovalocytes Slight [place] Cells Slight Sodium 140 Potassium 4.3 Chloride 99 Carbon Dioxide 33 H Anion Gap 12 BUN 23 H Creatinine 0.6 L Est GFR ( Amer) > 60 Est GFR (Non-Af Amer) > 60 Random Glucose 139 H Calcium 8.7 Phosphorus 5.0 H Magnesium 2.2 Total Bilirubin 0.6 AST 93 H D ALT 189 H Alkaline Phosphatase 136 H Total Protein 7.4 Albumin 3.4 L Globulin 4.0 H Albumin/Globulin Ratio 0.9 L Attending/Attestation - Attestation I have personally seen and examined this patient.: Yes I have fully participated in the care of the patient.: Yes I have reviewed all pertinent clinical information: Yes Notes (Text): 08/24/15 15:13 Patient seen and examined with the resident earlier today. No change in clinical condition. Continue with current management. IV Lasix as needed because of edema.
--- NOTE | 2015-08-25 01:03 | CP.PCM.PN ---
<Nely Pate - Last Filed: 08/25/15 01:00> Subjective - Subjective Subjective: Patient seen and examined. No acute change or improvement in patient's status. Patient does not appear in acute distress. Patient is unresponsive to verbal stimulation. Unable to obtain ROS due to chronic condition. Patient is on ventilator. Review of Systems - Review of Systems Systems not reviewed;Unavailable: Altered Mental Status Objective - Vital Signs/Intake and Output Vital Signs (last 24 hours): Vital Signs - 24 hr 08/24/15 08/24/15 08/24/15 05:00 09:00 13:32 Temperature 98.9 F 98.6 F Pulse Rate 90 86 Respiratory 18 20 Rate Blood Pressure 97/65 L 110/65 131/83 O2 Sat by Pulse 100 100 Oximetry Intake and Output (last 12 hours): Intake & Output 08/24/15 08/24/15 08/25/15 06:59 18:59 06:59 Intake Total 700 Output Total 200 200 Balance -200 500 Weight 103 lb 1.6 oz Intake: Tube Feeding 700 Output: Urine 200 200 Urethral (Yoo) 200 200 - Medications Medications: Current Medications Aspirin (Aspirin) 325 mg PO DAILY [facility] Last Admin: 08/24/15 09:58 Dose: 325 mg Clopidogrel Bisulfate (Plavix) 75 mg PO DAILY [facility] Last Admin: 08/24/15 09:58 Dose: 75 mg Lisinopril (Zestril) 5 mg PO DAILY [facility] Last Admin: 08/24/15 09:58 Dose: 5 mg Nystatin (Nystop Topical Powder) 1 applic TOP BID [facility] Last Admin: 08/24/15 18:00 Dose: 1 applic Petrolatum (Desitin Original) 0 gm TOP BID [facility] Last Admin: 08/24/15 17:49 Dose: 1 applic Phenytoin (Dilantin) 100 mg PEG TID [facility] Last Admin: 08/24/15 17:48 Dose: 100 mg Polyethylene Glycol (Miralax) 17 gm PEG BID [facility] Last Admin: 08/21/15 11:26 Dose: Not Given - Labs Labs (last 24 hours): Laboratory Results - last 24 hr 08/24/15 07:10 WBC 12.5 H RBC 3.75 L Hgb 11.7 L Hct 35.3 MCV 94.3 H MCH 31.2 H MCHC 33.1 RDW 15.1 H Plt Count 307 MPV 8.3 Neut % (Auto) 72.8 Lymph % (Auto) 9.1 L [place] % (Auto) 8.9 Eos % (Auto) 8.9 H Baso % (Auto) 0.3 Neut # 9.1 H Lymph # 1.1 [place] # 1.1 H Eos # 1.1 H Baso # 0.0 Neutrophils % (Manual) 74 Band Neutrophils % 4 H Lymphocytes % (Manual) 8 L Monocytes % (Manual) 7 Eosinophils % (Manual) 7 H Platelet Estimate Normal Polychromasia Slight Hypochromasia (manual) Slight Poikilocytosis (manual Slight Anisocytosis (manual) Slight Sodium 140 Potassium 4.3 Chloride 99 Carbon Dioxide 33 H Anion Gap 12 BUN 23 H Creatinine 0.6 L Est GFR ( Amer) > 60 Est GFR (Non-Af Amer) > 60 Random Glucose 139 H Calcium 8.7 Phosphorus 5.0 H Magnesium 2.2 Total Bilirubin 0.6 AST 93 H D ALT 189 H Alkaline Phosphatase 136 H Total Protein 7.4 Albumin 3.4 L Globulin 4.0 H Albumin/Globulin Ratio 0.9 L - Constitutional Appears: Cachectic, Chronically Ill - Head Exam Head Exam: ATRAUMATIC, NORMOCEPHALIC - Eye Exam Eye Exam: Normal appearance - ENT Exam ENT Exam: Mucous Membranes Moist, Normal Exam - Respiratory Exam Respiratory Exam: Clear to PA & Lateral, NORMAL BREATHING PATTERN. absent: Respiratory Distress - Cardiovascular Exam Cardiovascular Exam: REGULAR RHYTHM, +S1, +S2 - GI/Abdominal Exam GI & Abdominal Exam: Soft. absent: Distended, Firm, Guarding - Extremities Exam Extremities exam: pedal edema - Neurological Exam Neurological exam: Altered. absent: Alert - Skin Skin Exam: Dry, Intact, Normal Color, Warm Assessment/Plan (1) Anoxic encephalopathy Current Visit: Yes Status: Acute Comment: 08/25 No improvement or change in mental status. Pt not responsive to verbal commands 08/24 Pt not responsive to verbal stimuli, only painful, unable to follow commands, pt continues to have swelling, minimal improvement, will continue to monitor, continue with dietary recommendations 08/23 Gave one dose of Lasix today, cont diet as ordered. monitor 08/22 Spontaneous movement, eyes open. given one dose of Lasix for increased swelling in upper extremities. GT bolus adjusted to dietary recommendations. 08/21 Spontaneous movement, opened eyes during examination. Per wound care nurse , Sabrina, pt is having skin breakdown due to excessive diarrhea. Recommended nystatin powder and sensicare cream to be applied on affected area. Pt's laxatives were removed. Gastric tube feeding will be made into 4 boluses, at 8am , 12pm, 4pm, 8 pm, per dietary recommendations. C diff cultures ordered. (2) Chest congestion Current Visit: Yes Status: Acute Comment: Sputum culture (07/28/15) with Pseudomonas aeruginosa s/p treatment Dr. Armstrong on case-help appreciated patient afebrile (3) Urinary tract infection Current Visit: Yes Status: Acute Comment: Urine culture 07/21 showed Beta hemolytic Strep Group B sensitive to ampicillin ampicillin 500mg PEG TID started 07/23 and then discontinued. ID consulted - Dr. Armstrong - help very much appreciated. Leukocytosis resolved and patient afebrile. Monitor patient. (4) Transaminitis Current Visit: Yes Status: Acute Comment: ALT and AlK phos elevated Hep panel negative Continue to monitor LFTs (5) Respiratory failure Current Visit: Yes Status: Acute Comment: Dr. Salgado (pulm) on case-help appreciated Patient on trach SIMV Monitor (6) CAD (coronary artery disease) Current Visit: Yes Status: Acute Comment: Continue Lisinopril 5mg PO daily Continue ASA 325mg PO daily Continue Plavix 75mg PO daily (7) STEMI (ST elevation myocardial infarction) Current Visit: Yes Status: Acute Comment: Continue Lisinopril 5mg PO daily Continue Plavix 75mg PO daily Continue ASA 325mg PO daily s/p stenting (8) Seizures Current Visit: Yes Status: Acute Comment: Continue dilantin 100mg via PEG TID Continue to monitor for seizure activity (9) Leukocytosis Current Visit: Yes Status: Acute Comment: resolved CXR - no active disease Monitor temperature Afebrile IV Cefepime 1gm q12h started 07/21 Monitor (10) Prophylactic measure Current Visit: Yes Status: Acute Comment: SCDs Plavix <Donnell Ying M - Last Filed: 08/25/15 14:32> Objective - Vital Signs/Intake and Output Vital Signs (last 24 hours): Vital Signs - 24 hr 08/25/15 08/25/15 05:00 14:10 Temperature 99.3 F 99.1 F Pulse Rate 88 89 Respiratory 16 20 Rate Blood Pressure 115/71 121/78 O2 Sat by Pulse 100 100 Oximetry Intake and Output (last 12 hours): Intake & Output 08/24/15 08/25/15 08/25/15 18:59 06:59 18:59 Intake Total 700 700 Output Total 200 300 Balance 500 -300 700 Intake: Tube Feeding 700 700 Output: Urine 200 300 Urethral (Yoo) 200 300 - Medications Medications: Current Medications Aspirin (Aspirin) 325 mg PO DAILY [facility] Last Admin: 08/25/15 10:31 Dose: 325 mg Clopidogrel Bisulfate (Plavix) 75 mg PO DAILY [facility] Last Admin: 08/25/15 10:32 Dose: 75 mg Lisinopril (Zestril) 5 mg PO DAILY [facility] Last Admin: 08/25/15 10:32 Dose: 5 mg Nystatin (Nystop Topical Powder) 1 applic TOP BID [facility] Last Admin: 08/25/15 10:32 Dose: 1 applic Petrolatum (Desitin Original) 0 gm TOP BID [facility] Last Admin: 08/25/15 10:33 Dose: 1 applic Phenytoin (Dilantin) 100 mg PEG TID [facility] Last Admin: 08/25/15 10:31 Dose: 100 mg Polyethylene Glycol (Miralax) 17 gm PEG BID [facility] Last Admin: 08/21/15 11:26 Dose: Not Given Attending/Attestation - Attestation I have personally seen and examined this patient.: Yes I have fully participated in the care of the patient.: Yes I have reviewed all pertinent clinical information: Yes Notes (Text): 08/25/15 14:31 Patient seen and examined at bedside. No change in clinical condition. Patient is unresponsive. We will continue current medical management. The plan is to transfer to LT[facility] when family agrees.
[2015-08-25] MEDS: Phenytoin 100 mg/4 ml Oral Susp UD PEG SCH ×3 (10:31→17:45)
[2015-08-25] MEDS: Zinc Oxide Topical 30 gm Tube TOP SCH ×3 (10:33→17:46)
--- NOTE | 2015-08-26 00:20 | CP.PCM.PN ---
<LucionathanieldesireeNely - Last Filed: 08/26/15 00:17> Subjective - Subjective Subjective: Patient seen and examined. Patient's condition unchanged. Patient unresponsive to verbal commands. Unable to obtain ROS. Review of Systems - Review of Systems Systems not reviewed;Unavailable: Altered Mental Status Objective - Vital Signs/Intake and Output Vital Signs (last 24 hours): Vital Signs - 24 hr 08/25/15 08/25/15 08/25/15 05:00 14:10 21:48 Temperature 99.3 F 99.1 F 97.1 F L Pulse Rate 88 89 95 H Respiratory 16 20 20 Rate Blood Pressure 115/71 121/78 127/69 O2 Sat by Pulse 100 100 100 Oximetry Intake and Output (last 12 hours): Intake & Output 08/25/15 08/25/15 08/26/15 06:59 18:59 06:59 Intake Total 700 900 Output Total 300 500 900 Balance -300 200 0 Intake: Tube Feeding 700 Other 900 Output: Urine 300 500 900 Urethral (Yoo) 300 500 900 Other: # Bowel Movements 1 - Medications Medications: Current Medications Aspirin (Aspirin) 325 mg PO DAILY [facility] Last Admin: 08/25/15 10:31 Dose: 325 mg Clopidogrel Bisulfate (Plavix) 75 mg PO DAILY [facility] Last Admin: 08/25/15 10:32 Dose: 75 mg Lisinopril (Zestril) 5 mg PO DAILY [facility] Last Admin: 08/25/15 10:32 Dose: 5 mg Nystatin (Nystop Topical Powder) 1 applic TOP BID [facility] Last Admin: 08/25/15 17:47 Dose: 1 applic Petrolatum (Desitin Original) 0 gm TOP BID [facility] Last Admin: 08/25/15 17:46 Dose: 1 applic Phenytoin (Dilantin) 100 mg PEG TID [facility] Last Admin: 08/25/15 17:45 Dose: 100 mg Polyethylene Glycol (Miralax) 17 gm PEG BID [facility] Last Admin: 08/21/15 11:26 Dose: Not Given - Constitutional Appears: Cachectic, Chronically Ill - Head Exam Head Exam: ATRAUMATIC, NORMOCEPHALIC - Respiratory Exam Respiratory Exam: Clear to PA & Lateral, NORMAL BREATHING PATTERN. absent: Respiratory Distress - Cardiovascular Exam Cardiovascular Exam: REGULAR RHYTHM, +S1, +S2 - GI/Abdominal Exam GI & Abdominal Exam: Soft. absent: Distended, Firm, Guarding, Pulsatile Mass - Neurological Exam Neurological exam: absent: Alert - Skin Skin Exam: Dry, Intact, Normal Color, Warm Assessment/Plan (1) Anoxic encephalopathy Current Visit: Yes Status: Acute Comment: 08/26 Patient's status remains the same 08/25 No improvement or change in mental status. Pt not responsive to verbal commands 08/24 Pt not responsive to verbal stimuli, only painful, unable to follow commands, pt continues to have swelling, minimal improvement, will continue to monitor, continue with dietary recommendations 08/23 Gave one dose of Lasix today, cont diet as ordered. monitor 08/22 Spontaneous movement, eyes open. given one dose of Lasix for increased swelling in upper extremities. GT bolus adjusted to dietary recommendations. 08/21 Spontaneous movement, opened eyes during examination. Per wound care nurse , Sabrina, pt is having skin breakdown due to excessive diarrhea. Recommended nystatin powder and sensicare cream to be applied on affected area. Pt's laxatives were removed. Gastric tube feeding will be made into 4 boluses, at 8am , 12pm, 4pm, 8 pm, per dietary recommendations. C diff cultures ordered. (2) Chest congestion Current Visit: Yes Status: Acute Comment: Sputum culture (07/28/15) with Pseudomonas aeruginosa s/p treatment Dr. Armstrong on case-help appreciated patient afebrile (3) Urinary tract infection Current Visit: Yes Status: Acute Comment: Urine culture 07/21 showed Beta hemolytic Strep Group B sensitive to ampicillin ampicillin 500mg PEG TID started 07/23 and then discontinued. ID consulted - Dr. Armstrong - help very much appreciated. Leukocytosis resolved and patient afebrile. Monitor patient. (4) Transaminitis Current Visit: Yes Status: Acute Comment: ALT and AlK phos elevated Hep panel negative Continue to monitor LFTs (5) Respiratory failure Current Visit: Yes Status: Acute Comment: Dr. Salgado (pulm) on case-help appreciated Patient on trach SIMV Monitor (6) CAD (coronary artery disease) Current Visit: Yes Status: Acute Comment: Continue Lisinopril 5mg PO daily Continue ASA 325mg PO daily Continue Plavix 75mg PO daily (7) STEMI (ST elevation myocardial infarction) Current Visit: Yes Status: Acute Comment: Continue Lisinopril 5mg PO daily Continue Plavix 75mg PO daily Continue ASA 325mg PO daily s/p stenting (8) Seizures Current Visit: Yes Status: Acute Comment: Continue dilantin 100mg via PEG TID Continue to monitor for seizure activity (9) Leukocytosis Current Visit: Yes Status: Acute Comment: resolved CXR - no active disease Monitor temperature Afebrile IV Cefepime 1gm q12h started 07/21 Monitor (10) Prophylactic measure Current Visit: Yes Status: Acute Comment: SCDs Plavix <StepanDonnell M - Last Filed: 08/26/15 15:01> Objective - Vital Signs/Intake and Output Vital Signs (last 24 hours): Vital Signs - 24 hr 08/25/15 08/26/15 08/26/15 21:48 05:35 14:00 Temperature 97.1 F L 98.2 F 98.8 F Pulse Rate 95 H 91 H 90 Respiratory 20 20 20 Rate Blood Pressure 127/69 135/91 H 129/81 O2 Sat by Pulse 100 100 98 Oximetry Intake and Output (last 12 hours): Intake & Output 08/25/15 08/26/15 08/26/15 18:59 06:59 18:59 Intake Total 700 1550 Output Total 500 1100 200 Balance 200 450 -200 Weight 104 lb Intake: Tube Feeding 700 450 Other 1100 Output: Urine 500 1100 200 Urethral (Yoo) 500 1100 200 Other: # Bowel Movements 1 - Medications Medications: Current Medications Aspirin (Aspirin) 325 mg PO DAILY [facility] Last Admin: 08/26/15 10:11 Dose: 325 mg Clopidogrel Bisulfate (Plavix) 75 mg PO DAILY [facility] Last Admin: 08/26/15 10:11 Dose: 75 mg Lisinopril (Zestril) 5 mg PO DAILY [facility] Last Admin: 08/26/15 10:12 Dose: 5 mg Nystatin (Nystop Topical Powder) 1 applic TOP BID [facility] Last Admin: 08/26/15 13:00 Dose: 1 applic Petrolatum (Desitin Original) 0 gm TOP BID [facility] Last Admin: 08/26/15 13:01 Dose: 1 applic Phenytoin (Dilantin) 100 mg PEG TID [facility] Last Admin: 08/26/15 12:59 Dose: 100 mg Polyethylene Glycol (Miralax) 17 gm PEG BID [facility] Last Admin: 08/21/15 11:26 Dose: Not Given Attending/Attestation - Attestation I have personally seen and examined this patient.: Yes I have fully participated in the care of the patient.: Yes I have reviewed all pertinent clinical information: Yes Notes (Text): 08/26/15 15:00 Patient seen and examined at bedside with the resident. No change in clinical condition. LFTs trending up. We will monitor for now. Continue current management. Plan for transfer to LTAC when family agrees.
[2015-08-26] MEDS: Phenytoin 100 mg/4 ml Oral Susp UD PEG SCH ×3 (10:11→17:15)
[2015-08-26] MEDS: Zinc Oxide Topical 30 gm Tube TOP SCH ×2 (13:01→17:16)
[2015-08-27 08:08] LABS: ALBUMIN 3.3 g/dL (3.5-5.0)
[2015-08-27 08:11] LABS: ALB/GLOB RATIO 0.9 (1.0-2.1); AST/SGOT 62 U/L (17-59); BLOOD UREA NITROGEN 21 mg/dL (9-20); GFR NON-AFRICAN AMERICAN > 60
[2015-08-27 08:12] LABS: ALT/SGPT 161 U/L (21-72); CALCIUM 8.3 mg/dL (8.4-10.2)
[2015-08-27 08:13] LABS: BASO % 0.3 % (0.0-2.0); EOS # 1.3 K/uL (0.0-0.7); EOS % 9.9 % (0.0-4.0); HEMOGLOBIN 11.2 g/dL (12.0-18.0); LYMPH # 1.2 K/uL (1.0-4.3); LYMPH % 9.3 % (20.0-40.0); MEAN CELL VOLUME 93.9 fL (80.0-94.0); MEAN CORPUSCULAR HEMOGLOBIN 31.1 pg (27.0-31.0); MEAN CORPUSCULAR HGB CONC 33.2 g/dL (33.0-37.0); MEAN PLATELET VOLUME 8.3 fL (7.2-11.7); MONO % 8.2 % (0.0-10.0); NEUT # 9.2 K/uL (1.8-7.0); NEUT % 72.3 % (50.0-75.0); PLATELET COUNT 314 K/uL (130-400); RED CELL DISTRIBUTION WIDTH 15.1 % (11.5-14.5); WHITE BLOOD COUNT 12.8 K/uL (4.8-10.8)
[2015-08-27 09:04] LABS: ANISOCYTOSIS SLIGHT; BASOPHIL 1 % (0-2); EOSINOPHIL 6 % (0-4); HYPOCHROMIC SLIGHT; LYMPHOCYTE 10 % (20-40); MONOCYTE 4 % (0-10); NEUTROPHIL 79 % (50-75); PLATELET ESTIMATE NORMAL (NORMAL); POIKILOCYTOSIS SLIGHT; TOTAL CELLS COUNTED 100
[2015-08-27 09:05] LABS: TOXIC GRANULATION PRESENT
--- NOTE | 2015-08-27 10:13 | CP.PCM.PN ---
<Sandra Mercedes - Last Filed: 08/27/15 14:23> Subjective - Subjective Subjective: Pt seen and examined. Pt is on a vent and not responsive to verbal stimuli, but responsive to painful stimuli. Pt was yawning during examination. Unable to obtain ROS. Review of Systems - Review of Systems Systems not reviewed;Unavailable: Altered Mental Status Objective - Vital Signs/Intake and Output Vital Signs (last 24 hours): Vital Signs - 24 hr 08/26/15 08/26/15 08/27/15 14:00 19:00 05:40 Temperature 98.8 F 97.0 F L 99.5 F Pulse Rate 90 79 78 Respiratory 20 18 20 Rate Blood Pressure 129/81 97/68 L 115/68 O2 Sat by Pulse 98 100 100 Oximetry Intake and Output (last 12 hours): Intake & Output 08/26/15 08/27/15 08/27/15 18:59 06:59 18:59 Intake Total 650 Output Total 200 550 Balance -200 100 Weight 104 lb Intake: Tube Feeding 450 Other 200 Output: Urine 200 550 Urethral (Yoo) 200 550 - Medications Medications: Current Medications Aspirin (Aspirin) 325 mg PO DAILY [facility] Last Admin: 08/26/15 10:11 Dose: 325 mg Clopidogrel Bisulfate (Plavix) 75 mg PO DAILY [facility] Last Admin: 08/26/15 10:11 Dose: 75 mg Lisinopril (Zestril) 5 mg PO DAILY [facility] Last Admin: 08/26/15 10:12 Dose: 5 mg Nystatin (Nystop Topical Powder) 1 applic TOP BID [facility] Last Admin: 08/26/15 17:17 Dose: 1 applic Petrolatum (Desitin Original) 0 gm TOP BID [facility] Last Admin: 08/26/15 17:16 Dose: 1 applic Phenytoin (Dilantin) 100 mg PEG TID [facility] Last Admin: 08/26/15 17:15 Dose: 100 mg Polyethylene Glycol (Miralax) 17 gm PEG BID [facility] Last Admin: 08/21/15 11:26 Dose: Not Given - Labs Labs (last 24 hours): Laboratory Results - last 24 hr 08/27/15 07:19 WBC 12.8 H RBC 3.60 L Hgb 11.2 L Hct 33.8 L MCV 93.9 MCH 31.1 H MCHC 33.2 RDW 15.1 H Plt Count 314 MPV 8.3 Neut % (Auto) 72.3 Lymph % (Auto) 9.3 L [place] % (Auto) 8.2 Eos % (Auto) 9.9 H Baso % (Auto) 0.3 Neut # 9.2 H Lymph # 1.2 [place] # 1.0 H Eos # 1.3 H Baso # 0.0 Neutrophils % (Manual) 79 H Lymphocytes % (Manual) 10 L Monocytes % (Manual) 4 Eosinophils % (Manual) 6 H Basophils % (Manual) 1 Toxic Granulation Present Platelet Estimate Normal Hypochromasia (manual) Slight Poikilocytosis (manual Slight Anisocytosis (manual) Slight Sodium 139 Potassium 3.7 Chloride 100 Carbon Dioxide 29 Anion Gap 13 BUN 21 H Creatinine 0.5 L Est GFR ( Amer) > 60 Est GFR (Non-Af Amer) > 60 Random Glucose 118 H Calcium 8.3 L Phosphorus 4.5 Magnesium 2.1 Total Bilirubin 0.4 AST 62 H D ALT 161 H Alkaline Phosphatase 141 H Total Protein 7.0 Albumin 3.3 L Globulin 3.7 Albumin/Globulin Ratio 0.9 L - Constitutional Appears: Non-toxic, No Acute Distress - Head Exam Head Exam: NORMAL INSPECTION, NORMOCEPHALIC - Eye Exam Eye Exam: Normal appearance, PERRL Pupil Exam: PERRL - Respiratory Exam Respiratory Exam: Clear to PA & Lateral, NORMAL BREATHING PATTERN (on vent) - Cardiovascular Exam Cardiovascular Exam: REGULAR RHYTHM, +S1, +S2 - GI/Abdominal Exam GI & Abdominal Exam: Normal Bowel Sounds, Soft - Extremities Exam Extremities exam: pedal pulses present - Neurological Exam Neurological exam: Altered - Skin Skin Exam: Dry, Warm Assessment/Plan (1) Anoxic encephalopathy Current Visit: Yes Status: Acute Comment: 08/27 No interval change in pt's condition, will continue to monitor 08/26 Patient's status remains the same 08/25 No improvement or change in mental status. Pt not responsive to verbal commands 08/24 Pt not responsive to verbal stimuli, only painful, unable to follow commands, pt continues to have swelling, minimal improvement, will continue to monitor, continue with dietary recommendations 08/23 Gave one dose of Lasix today, cont diet as ordered. monitor 08/22 Spontaneous movement, eyes open. given one dose of Lasix for increased swelling in upper extremities. GT bolus adjusted to dietary recommendations. 08/21 Spontaneous movement, opened eyes during examination. Per wound care nurse , Sabrina, pt is having skin breakdown due to excessive diarrhea. Recommended nystatin powder and sensicare cream to be applied on affected area. Pt's laxatives were removed. Gastric tube feeding will be made into 4 boluses, at 8am , 12pm, 4pm, 8 pm, per dietary recommendations. C diff cultures ordered. (2) UTI (lower urinary tract infection) Current Visit: Yes Status: Acute Comment: Urine Cx (07/28): neg UA (07/28): shows no WBC or Leuk esterases Urine CX (07/18): Coag neg staph (positive for Pseudomonas in past) IV Cefepime 1gm q12h started 07/21 and completed 07/26. (3) Chest congestion Current Visit: Yes Status: Acute Comment: Sputum culture (07/28/15) with Pseudomonas aeruginosa s/p treatment Dr. Armstrong on case-help appreciated patient afebrile (4) Transaminitis Current Visit: Yes Status: Acute Comment: ALT and AlK phos elevated Hep panel negative Continue to monitor LFTs (5) Thrombophlebitis of superficial veins of upper extremities Current Visit: Yes Status: Acute Comment: Venous doppler (07/19) prelim report - thrombosis of right cephalic vein (superficial) Shows Abnormality Lovenox 40mg SC daily Warm compresses to area 15 minutes, 3x a day f/u final venous doppler report (6) Edema of upper extremity Current Visit: Yes Status: Acute Comment: Venous doppler (07/19) - thrombosis of right cephalic vein (superficial) - please see official report Continue warm compresses Monitor (7) Respiratory failure Current Visit: Yes Status: Acute Comment: Dr. Salgado (pul) on case-help appreciated Patient on trach SIMV Monitor (8) STEMI (ST elevation myocardial infarction) Current Visit: Yes Status: Acute Comment: Continue Lisinopril 5mg PO daily Continue Plavix 75mg PO daily Continue ASA 325mg PO daily s/p stenting (9) Seizures Current Visit: Yes Status: Acute Comment: Continue dilantin 100mg via PEG TID Continue to monitor for seizure activity (10) Prophylactic measure Current Visit: Yes Status: Acute Comment: SCDs Plavix <NyandraRashel - Last Filed: 08/27/15 18:15> Objective - Vital Signs/Intake and Output Vital Signs (last 24 hours): Vital Signs - 24 hr 08/26/15 08/27/15 08/27/15 19:00 05:40 07:35 Temperature 97.0 F L 99.5 F Pulse Rate 79 78 78 Respiratory 18 20 Rate Blood Pressure 97/68 L 115/68 O2 Sat by Pulse 100 100 Oximetry 08/27/15 14:00 Temperature 97 F L Pulse Rate 95 H Respiratory 20 Rate Blood Pressure 108/69 O2 Sat by Pulse 100 Oximetry Intake and Output (last 12 hours): Intake & Output 08/26/15 08/27/15 08/27/15 18:59 06:59 18:59 Intake Total 650 Output Total 200 550 300 Balance -200 100 -300 Weight 104 lb Intake: Tube Feeding 450 Other 200 Output: Urine 200 550 300 Urethral (Yoo) 200 550 300 Other: # Bowel Movements 1 - Medications Medications: Current Medications Aspirin (Aspirin) 325 mg PO DAILY [facility] Last Admin: 08/27/15 10:14 Dose: 325 mg Clopidogrel Bisulfate (Plavix) 75 mg PO DAILY [facility] Last Admin: 08/27/15 10:15 Dose: 75 mg Lisinopril (Zestril) 5 mg PO DAILY [facility] Last Admin: 08/27/15 10:15 Dose: 5 mg Nystatin (Nystop Topical Powder) 1 applic TOP BID [facility] Last Admin: 08/27/15 17:31 Dose: 1 applic Petrolatum (Desitin Original) 0 gm TOP BID [facility] Last Admin: 08/27/15 17:31 Dose: 1 applic Phenytoin (Dilantin) 100 mg PEG TID [facility] Last Admin: 08/27/15 17:31 Dose: 100 mg Polyethylene Glycol (Miralax) 17 gm PEG BID [facility] Last Admin: 08/21/15 11:26 Dose: Not Given - Labs Labs (last 24 hours): Laboratory Results - last 24 hr 08/27/15 07:19 WBC 12.8 H RBC 3.60 L Hgb 11.2 L Hct 33.8 L MCV 93.9 MCH 31.1 H MCHC 33.2 RDW 15.1 H Plt Count 314 MPV 8.3 Neut % (Auto) 72.3 Lymph % (Auto) 9.3 L [place] % (Auto) 8.2 Eos % (Auto) 9.9 H Baso % (Auto) 0.3 Neut # 9.2 H Lymph # 1.2 [place] # 1.0 H Eos # 1.3 H Baso # 0.0 Neutrophils % (Manual) 79 H Lymphocytes % (Manual) 10 L Monocytes % (Manual) 4 Eosinophils % (Manual) 6 H Basophils % (Manual) 1 Toxic Granulation Present Platelet Estimate Normal Hypochromasia (manual) Slight Poikilocytosis (manual Slight Anisocytosis (manual) Slight Sodium 139 Potassium 3.7 Chloride 100 Carbon Dioxide 29 Anion Gap 13 BUN 21 H Creatinine 0.5 L Est GFR ( Amer) > 60 Est GFR (Non-Af Amer) > 60 Random Glucose 118 H Calcium 8.3 L Phosphorus 4.5 Magnesium 2.1 Total Bilirubin 0.4 AST 62 H D ALT 161 H Alkaline Phosphatase 141 H Total Protein 7.0 Albumin 3.3 L Globulin 3.7 Albumin/Globulin Ratio 0.9 L Attending/Attestation - Attestation I have personally seen and examined this patient.: Yes I have fully participated in the care of the patient.: Yes I have reviewed all pertinent clinical information: Yes Notes (Text): 08/27/15 18:14 Patient seen and examined during round with resident no new events, not responsive today cont supportive mx and vent weaning when able.
[2015-08-27] MEDS: Phenytoin 100 mg/4 ml Oral Susp UD PEG SCH ×3 (10:15→17:31)
[2015-08-27] MEDS: Zinc Oxide Topical 30 gm Tube TOP SCH ×2 (10:15→17:31)
[2015-08-28] MEDS: Phenytoin 100 mg/4 ml Oral Susp UD PEG SCH ×3 (10:19→18:15)
[2015-08-28] MEDS: Zinc Oxide Topical 30 gm Tube TOP SCH ×2 (10:20→18:15)
--- NOTE | 2015-08-28 14:02 | CP.PCM.PN ---
<Sandra Mercedes - Last Filed: 08/28/15 13:46> Subjective - Subjective Subjective: Pt seen and examined. Pt is on vent and not responsive to verbal commands. Pt appears to be more alert today and is opening eyes and moving head around. Unable to obtain ROS. Review of Systems - Review of Systems Systems not reviewed;Unavailable: Altered Mental Status Objective - Vital Signs/Intake and Output Vital Signs (last 24 hours): Vital Signs - 24 hr 08/27/15 08/27/15 08/28/15 14:00 20:38 05:59 Temperature 97 F L 99.5 F 97.6 F Pulse Rate 95 H 87 93 H Respiratory 20 18 20 Rate Blood Pressure 108/69 109/74 125/79 O2 Sat by Pulse 100 100 100 Oximetry Intake and Output (last 12 hours): Intake & Output 08/27/15 08/28/15 08/28/15 18:59 06:59 18:59 Intake Total 1850 Output Total 300 600 Balance -300 1250 Intake: Tube Feeding 1450 Other 400 Output: Urine 300 600 Urethral (Yoo) 300 600 Stool 0 Other: # Bowel Movements 1 - Medications Medications: Current Medications Aspirin (Aspirin) 325 mg PO DAILY [facility] Last Admin: 08/28/15 10:19 Dose: 325 mg Clopidogrel Bisulfate (Plavix) 75 mg PO DAILY [facility] Last Admin: 08/28/15 10:19 Dose: 75 mg Lisinopril (Zestril) 5 mg PO DAILY [facility] Last Admin: 08/28/15 10:19 Dose: 5 mg Nystatin (Nystop Topical Powder) 1 applic TOP BID [facility] Last Admin: 08/28/15 10:19 Dose: 1 applic Petrolatum (Desitin Original) 0 gm TOP BID [facility] Last Admin: 08/28/15 10:20 Dose: 1 applic Phenytoin (Dilantin) 100 mg PEG TID [facility] Last Admin: 08/28/15 10:19 Dose: 100 mg Polyethylene Glycol (Miralax) 17 gm PEG BID [facility] Last Admin: 08/21/15 11:26 Dose: Not Given - Constitutional Appears: Non-toxic, No Acute Distress, Chronically Ill - Head Exam Head Exam: NORMAL INSPECTION, NORMOCEPHALIC - Eye Exam Eye Exam: Normal appearance, PERRL Pupil Exam: PERRL - Respiratory Exam Respiratory Exam: Clear to PA & Lateral, NORMAL BREATHING PATTERN - Cardiovascular Exam Cardiovascular Exam: REGULAR RHYTHM, +S1, +S2 - GI/Abdominal Exam GI & Abdominal Exam: Hypoactive Bowel Sounds, Soft - Extremities Exam Extremities exam: pedal edema, pedal pulses present - Neurological Exam Neurological exam: Altered - Skin Skin Exam: Dry, Normal Color Assessment/Plan (1) Anoxic encephalopathy Current Visit: Yes Status: Acute Comment: 08/28: Pt more alert today, continues to be unresponsive to verbal stimuli 08/27 No interval change in pt's condition, will continue to monitor 08/26 Patient's status remains the same 08/25 No improvement or change in mental status. Pt not responsive to verbal commands 08/24 Pt not responsive to verbal stimuli, only painful, unable to follow commands, pt continues to have swelling, minimal improvement, will continue to monitor, continue with dietary recommendations 08/23 Gave one dose of Lasix today, cont diet as ordered. monitor 08/22 Spontaneous movement, eyes open. given one dose of Lasix for increased swelling in upper extremities. GT bolus adjusted to dietary recommendations. 08/21 Spontaneous movement, opened eyes during examination. Per wound care nurse , Sabrina, pt is having skin breakdown due to excessive diarrhea. Recommended nystatin powder and sensicare cream to be applied on affected area. Pt's laxatives were removed. Gastric tube feeding will be made into 4 boluses, at 8am , 12pm, 4pm, 8 pm, per dietary recommendations. C diff cultures ordered. (2) UTI (lower urinary tract infection) Current Visit: Yes Status: Acute Comment: Urine Cx (07/28): neg UA (07/28): shows no WBC or Leuk esterases Urine CX (07/18): Coag neg staph (positive for Pseudomonas in past) IV Cefepime 1gm q12h started 07/21 and completed 07/26. (3) Chest congestion Current Visit: Yes Status: Acute Comment: Sputum culture (07/28/15) with Pseudomonas aeruginosa s/p treatment Dr. Armstrong on case-help appreciated patient afebrile (4) Transaminitis Current Visit: Yes Status: Acute Comment: ALT and AlK phos elevated Hep panel negative Continue to monitor LFTs (5) Thrombophlebitis of superficial veins of upper extremities Current Visit: Yes Status: Acute Comment: Venous doppler (07/19) prelim report - thrombosis of right cephalic vein (superficial) Shows Abnormality Lovenox 40mg SC daily Warm compresses to area 15 minutes, 3x a day f/u final venous doppler report (6) Edema of upper extremity Current Visit: Yes Status: Acute Comment: Venous doppler (07/19) - thrombosis of right cephalic vein (superficial) - please see official report Continue warm compresses Monitor (7) Respiratory failure Current Visit: Yes Status: Acute Comment: Dr. Salgado (pul) on case-help appreciated Patient on trach SIMV Monitor (8) STEMI (ST elevation myocardial infarction) Current Visit: Yes Status: Acute Comment: Continue Lisinopril 5mg PO daily Continue Plavix 75mg PO daily Continue ASA 325mg PO daily s/p stenting (9) Seizures Current Visit: Yes Status: Acute Comment: Continue dilantin 100mg via PEG TID Continue to monitor for seizure activity (10) Prophylactic measure Current Visit: Yes Status: Acute Comment: SCDs Plavix <Nyunt,Rashel - Last Filed: 08/28/15 15:11> Objective - Vital Signs/Intake and Output Vital Signs (last 24 hours): Vital Signs - 24 hr 08/27/15 08/28/15 08/28/15 20:38 05:59 13:50 Temperature 99.5 F 97.6 F 99.4 F Pulse Rate 87 93 H 94 H Respiratory 18 20 20 Rate Blood Pressure 109/74 125/79 115/75 O2 Sat by Pulse 100 100 100 Oximetry Intake and Output (last 12 hours): Intake & Output 08/27/15 08/28/15 08/28/15 18:59 06:59 18:59 Intake Total 1850 Output Total 300 600 700 Balance -300 1250 -700 Intake: Tube Feeding 1450 Other 400 Output: Urine 300 600 700 Urethral (Yoo) 300 600 700 Stool 0 Other: # Bowel Movements 1 - Medications Medications: Current Medications Aspirin (Aspirin) 325 mg PO DAILY [facility] Last Admin: 08/28/15 10:19 Dose: 325 mg Clopidogrel Bisulfate (Plavix) 75 mg PO DAILY [facility] Last Admin: 08/28/15 10:19 Dose: 75 mg Lisinopril (Zestril) 5 mg PO DAILY [facility] Last Admin: 08/28/15 10:19 Dose: 5 mg Nystatin (Nystop Topical Powder) 1 applic TOP BID [facility] Last Admin: 10/06/15 10:19 Dose: 1 applic Petrolatum (Desitin Original) 0 gm TOP BID [facility] Last Admin: 08/28/15 10:20 Dose: 1 applic Phenytoin (Dilantin) 100 mg PEG TID [facility] Last Admin: 08/28/15 14:59 Dose: 100 mg Polyethylene Glycol (Miralax) 17 gm PEG BID [facility] Last Admin: 08/21/15 11:26 Dose: Not Given Attending/Attestation - Attestation I have personally seen and examined this patient.: Yes I have fully participated in the care of the patient.: Yes I have reviewed all pertinent clinical information: Yes Notes (Text): 08/28/15 15:10 Patient seen and examined during round with resident cont supportive mx cont vent support
--- NOTE | 2015-08-29 10:42 | CP.PCM.PN ---
<Sandra Mercedes - Last Filed: 08/29/15 10:59> Subjective - Subjective Subjective: Pt seen and examined. Pt opened eyes when called pt's name and appears more alert. Pt still cannot respond to verbal commands and can not obtain ROS. Pt is on a vent. Review of Systems - Review of Systems Systems not reviewed;Unavailable: Altered Mental Status Objective - Vital Signs/Intake and Output Vital Signs (last 24 hours): Vital Signs - 24 hr 08/28/15 08/28/15 08/29/15 13:50 21:16 05:28 Temperature 99.4 F 97.9 F 98.4 F Pulse Rate 94 H 99 H 88 Respiratory 20 20 20 Rate Blood Pressure 115/75 124/82 121/78 O2 Sat by Pulse 100 99 100 Oximetry Intake and Output (last 12 hours): Intake & Output 08/28/15 08/29/15 08/29/15 18:59 06:59 18:59 Intake Total 1600 Output Total 700 601 Balance -700 999 Weight 104 lb Intake: Tube Feeding 1200 Other 400 Output: Urine 700 600 Urethral (Yoo) 700 600 Stool 1 - Medications Medications: Current Medications Aspirin (Aspirin) 325 mg PO DAILY [facility] Last Admin: 08/28/15 10:19 Dose: 325 mg Clopidogrel Bisulfate (Plavix) 75 mg PO DAILY [facility] Last Admin: 08/28/15 10:19 Dose: 75 mg Lisinopril (Zestril) 5 mg PO DAILY [facility] Last Admin: 08/28/15 10:19 Dose: 5 mg Nystatin (Nystop Topical Powder) 1 applic TOP BID [facility] Last Admin: 08/28/15 18:15 Dose: 1 applic Petrolatum (Desitin Original) 0 gm TOP BID [facility] Last Admin: 08/28/15 18:15 Dose: 1 applic Phenytoin (Dilantin) 100 mg PEG TID [facility] Last Admin: 08/28/15 18:15 Dose: 100 mg Polyethylene Glycol (Miralax) 17 gm PEG BID [facility] Last Admin: 08/21/15 11:26 Dose: Not Given - Constitutional Appears: Chronically Ill - Head Exam Head Exam: NORMAL INSPECTION, NORMOCEPHALIC - Eye Exam Eye Exam: Normal appearance, PERRL Pupil Exam: PERRL - Respiratory Exam Respiratory Exam: Clear to PA & Lateral, NORMAL BREATHING PATTERN - Cardiovascular Exam Cardiovascular Exam: REGULAR RHYTHM, +S1, +S2 - GI/Abdominal Exam GI & Abdominal Exam: Normal Bowel Sounds, Soft - Extremities Exam Extremities exam: pedal pulses present - Neurological Exam Neurological exam: Altered - Psychiatric Exam Psychiatric exam: Normal Affect, Normal Mood - Skin Skin Exam: Dry, Normal Color, Warm Assessment/Plan (1) Anoxic encephalopathy Assessment and plan: 08/29: Pt is more alert, able to open eyes; however, can not respond to verbal commands. will continue to monitor Current Visit: Yes Status: Acute Comment: 08/28: Pt more alert today, continues to be unresponsive to verbal stimuli 08/27 No interval change in pt's condition, will continue to monitor 08/26 Patient's status remains the same 08/25 No improvement or change in mental status. Pt not responsive to verbal commands 08/24 Pt not responsive to verbal stimuli, only painful, unable to follow commands, pt continues to have swelling, minimal improvement, will continue to monitor, continue with dietary recommendations 08/23 Gave one dose of Lasix today, cont diet as ordered. monitor 08/22 Spontaneous movement, eyes open. given one dose of Lasix for increased swelling in upper extremities. GT bolus adjusted to dietary recommendations. 08/21 Spontaneous movement, opened eyes during examination. Per wound care nurse , Sabrina, pt is having skin breakdown due to excessive diarrhea. Recommended nystatin powder and sensicare cream to be applied on affected area. Pt's laxatives were removed. Gastric tube feeding will be made into 4 boluses, at 8am , 12pm, 4pm, 8 pm, per dietary recommendations. C diff cultures ordered. (2) UTI (lower urinary tract infection) Current Visit: Yes Status: Acute Comment: Urine Cx (07/28): neg UA (07/28): shows no WBC or Leuk esterases Urine CX (07/18): Coag neg staph (positive for Pseudomonas in past) IV Cefepime 1gm q12h started 07/21 and completed 07/26. (3) Chest congestion Current Visit: Yes Status: Acute Comment: Sputum culture (07/28/15) with Pseudomonas aeruginosa s/p treatment Dr. Armstrong on case-help appreciated patient afebrile (4) Transaminitis Current Visit: Yes Status: Acute Comment: ALT and AlK phos elevated Hep panel negative Continue to monitor LFTs (5) Thrombophlebitis of superficial veins of upper extremities Current Visit: Yes Status: Acute Comment: Venous doppler (07/19) prelim report - thrombosis of right cephalic vein (superficial) Shows Abnormality Lovenox 40mg SC daily Warm compresses to area 15 minutes, 3x a day f/u final venous doppler report (6) Edema of upper extremity Current Visit: Yes Status: Acute Comment: Venous doppler (07/19) - thrombosis of right cephalic vein (superficial) - please see official report Continue warm compresses Monitor (7) Respiratory failure Current Visit: Yes Status: Acute Comment: Dr. Salgado (pul) on case-help appreciated Patient on trach SIMV Monitor (8) STEMI (ST elevation myocardial infarction) Current Visit: Yes Status: Acute Comment: Continue Lisinopril 5mg PO daily Continue Plavix 75mg PO daily Continue ASA 325mg PO daily s/p stenting (9) Seizures Current Visit: Yes Status: Acute Comment: Continue dilantin 100mg via PEG TID Continue to monitor for seizure activity (10) Prophylactic measure Current Visit: Yes Status: Acute Comment: SCDs Plavix <Rashel Rodrigues - Last Filed: 08/29/15 15:08> Objective - Vital Signs/Intake and Output Vital Signs (last 24 hours): Vital Signs - 24 hr 08/28/15 08/29/15 21:16 05:28 Temperature 97.9 F 98.4 F Pulse Rate 99 H 88 Respiratory 20 20 Rate Blood Pressure 124/82 121/78 O2 Sat by Pulse 99 100 Oximetry Intake and Output (last 12 hours): Intake & Output 08/28/15 08/29/15 08/29/15 18:59 06:59 18:59 Intake Total 1600 Output Total 700 601 500 Balance -700 999 -500 Weight 104 lb Intake: Tube Feeding 1200 Other 400 Output: Urine 700 600 500 Urethral (Yoo) 700 600 500 Stool 1 - Medications Medications: Current Medications Aspirin (Aspirin) 325 mg PO DAILY [facility] Last Admin: 08/29/15 10:44 Dose: 325 mg Clopidogrel Bisulfate (Plavix) 75 mg PO DAILY [facility] Last Admin: 08/29/15 10:43 Dose: 75 mg Lisinopril (Zestril) 5 mg PO DAILY [facility] Last Admin: 08/29/15 10:43 Dose: 5 mg Nystatin (Nystop Topical Powder) 1 applic TOP BID [facility] Last Admin: 08/29/15 10:44 Dose: 1 applic Petrolatum (Desitin Original) 0 gm TOP BID [facility] Last Admin: 08/29/15 10:44 Dose: 1 applic Phenytoin (Dilantin) 100 mg PEG TID [facility] Last Admin: 08/29/15 14:23 Dose: 100 mg Polyethylene Glycol (Miralax) 17 gm PEG BID [facility] Last Admin: 08/21/15 11:26 Dose: Not Given Attending/Attestation - Attestation I have personally seen and examined this patient.: Yes I have fully participated in the care of the patient.: Yes I have reviewed all pertinent clinical information: Yes Notes (Text): 08/29/15 15:06 Patient seen and examined during round with resident pt is awake, noted both UE moving when tried to open his eyes pt has been tolerating TF cont Vent support as needed
[2015-08-29] MEDS: Phenytoin 100 mg/4 ml Oral Susp UD PEG SCH ×3 (10:43→18:40)
[2015-08-29] MEDS: Zinc Oxide Topical 30 gm Tube TOP SCH ×2 (10:44→18:40)
--- NOTE | 2015-08-30 08:14 | CP.PCM.PN ---
Subjective - Subjective Subjective: patient seen and examined at the bedside pt is still on vent, on TF, No new events Review of Systems - Review of Systems Systems not reviewed;Unavailable: Intubated Objective - Vital Signs/Intake and Output Vital Signs (last 24 hours): Vital Signs - 24 hr 08/29/15 08/29/15 08/30/15 21:25 23:43 05:56 Temperature 99 F 98.5 F 98.2 F Pulse Rate 86 83 Respiratory 20 20 Rate Blood Pressure 127/79 129/79 O2 Sat by Pulse 100 100 Oximetry Intake and Output (last 12 hours): Intake & Output 08/29/15 08/30/15 08/30/15 18:59 06:59 18:59 Intake Total 950 650 Output Total 500 950 Balance 450 -300 Weight 104 lb Intake: Tube Feeding 750 450 Other 200 200 Output: Urine 500 950 Urethral (Yoo) 500 950 Other: # Bowel Movements 2 - Medications Medications: Current Medications Aspirin (Aspirin) 325 mg PO DAILY [facility] Last Admin: 08/29/15 10:44 Dose: 325 mg Clopidogrel Bisulfate (Plavix) 75 mg PO DAILY [facility] Last Admin: 08/29/15 10:43 Dose: 75 mg Lisinopril (Zestril) 5 mg PO DAILY [facility] Last Admin: 08/29/15 10:43 Dose: 5 mg Nystatin (Nystop Topical Powder) 1 applic TOP BID [facility] Last Admin: 08/29/15 18:40 Dose: 1 applic Petrolatum (Desitin Original) 0 gm TOP BID [facility] Last Admin: 08/29/15 18:40 Dose: 1 applic Phenytoin (Dilantin) 100 mg PEG TID [facility] Last Admin: 08/29/15 18:40 Dose: 100 mg Polyethylene Glycol (Miralax) 17 gm PEG BID [facility] Last Admin: 08/21/15 11:26 Dose: Not Given - Constitutional Appears: No Acute Distress - Eye Exam Eye Exam: Normal appearance - ENT Exam ENT Exam: Mucous Membranes Moist - Neck Exam Neck exam: absent: Thyromegaly - Respiratory Exam Respiratory Exam: Prolonged Expiratory Phase, Rales. absent: Rhonchi, Stridor - Cardiovascular Exam Cardiovascular Exam: REGULAR RHYTHM, RRR, +S1, +S2 - GI/Abdominal Exam GI & Abdominal Exam: Normal Bowel Sounds, Soft. absent: Rebound, Tenderness - Extremities Exam Extremities exam: absent: joint swelling, pedal edema, tenderness - Neurological Exam Neurological exam: Alert Neuro motor strength exam: Left Upper Extremity: 3, Right Upper Extremity: 3, Left Lower Extremity: 2/1, Right Lower Extremity: 2/ Assessment/Plan (1) Anoxic encephalopathy Current Visit: Yes Status: Acute Comment: 08/30--> awake and alert, eyes open, 08/28: Pt more alert today, continues to be unresponsive to verbal stimuli 08/27 No interval change in pt's condition, will continue to monitor 08/26 Patient's status remains the same 08/25 No improvement or change in mental status. Pt not responsive to verbal commands 08/24 Pt not responsive to verbal stimuli, only painful, unable to follow commands, pt continues to have swelling, minimal improvement, will continue to monitor, continue with dietary recommendations 08/23 Gave one dose of Lasix today, cont diet as ordered. monitor 08/22 Spontaneous movement, eyes open. given one dose of Lasix for increased swelling in upper extremities. GT bolus adjusted to dietary recommendations. 08/21 Spontaneous movement, opened eyes during examination. Per wound care nurse , Sabrina, pt is having skin breakdown due to excessive diarrhea. Recommended nystatin powder and sensicare cream to be applied on affected area. Pt's laxatives were removed. Gastric tube feeding will be made into 4 boluses, at 8am , 12pm, 4pm, 8 pm, per dietary recommendations. C diff cultures ordered. (2) STEMI (ST elevation myocardial infarction) Current Visit: Yes Status: Acute Comment: Continue Lisinopril 5mg PO daily Continue Plavix 75mg PO daily Continue ASA 325mg PO daily s/p stenting (3) Respiratory failure Current Visit: Yes Status: Acute Comment: 08/30--> DW Pulm--> Not able to wean the vent at this time, cont supportive vent mx Dr. Salgado (pul) on case-help appreciated Patient on trach SIMV Monitor (4) Seizures Current Visit: Yes Status: Acute Comment: 08/30--> repeat Dilantin level in am, cont meds, SZ precaution Continue dilantin 100mg via PEG TID Continue to monitor for seizure activity (5) UTI (lower urinary tract infection) Current Visit: Yes Status: Acute Comment: 08/30--> resolved Urine Cx (07/28): neg UA (07/28): shows no WBC or Leuk esterases Urine CX (07/18): Coag neg staph (positive for Pseudomonas in past) IV Cefepime 1gm q12h started 07/21 and completed 07/26. (6) Prophylactic measure Current Visit: Yes Status: Acute Comment: SCDs Plavix
[2015-08-30] MEDS: Phenytoin 100 mg/4 ml Oral Susp UD PEG SCH ×3 (10:45→17:56)
[2015-08-30] MEDS: Zinc Oxide Topical 30 gm Tube TOP SCH ×2 (10:46→17:57)
[2015-08-31 07:08] LABS: BASO # 0.1 K/uL (0.0-0.2); BASO % 0.5 % (0.0-2.0); EOS # 1.5 K/uL (0.0-0.7); EOS % 12.3 % (0.0-4.0); LYMPH # 1.2 K/uL (1.0-4.3); LYMPH % 9.4 % (20.0-40.0); MEAN CELL VOLUME 95.3 fL (80.0-94.0); MEAN CORPUSCULAR HEMOGLOBIN 30.9 pg (27.0-31.0); MEAN CORPUSCULAR HGB CONC 32.4 g/dL (33.0-37.0); MEAN PLATELET VOLUME 8.1 fL (7.2-11.7); MONO # 1.1 K/uL (0.0-0.8); MONO % 8.6 % (0.0-10.0); NEUT # 8.5 K/uL (1.8-7.0); NEUT % 69.2 % (50.0-75.0); PLATELET COUNT 335 K/uL (130-400); RBC 3.55 Mil/uL (4.40-5.90); RED CELL DISTRIBUTION WIDTH 14.9 % (11.5-14.5); WHITE BLOOD COUNT 12.3 K/uL (4.8-10.8)
[2015-08-31 07:31] LABS: ALBUMIN 3.2 g/dL (3.5-5.0)
[2015-08-31 07:34] LABS: ALB/GLOB RATIO 0.8 (1.0-2.1); ALT/SGPT 124 U/L (21-72); AST/SGOT 58 U/L (17-59); BLOOD UREA NITROGEN 19 mg/dL (9-20); GFR NON-AFRICAN AMERICAN > 60
[2015-08-31 07:35] LABS: CALCIUM 8.7 mg/dL (8.4-10.2)
[2015-08-31 07:58] LABS: BANDS 3 % (0-0); BASOPHIL 1 % (0-2); EOSINOPHIL 11 % (0-4); LYMPHOCYTE 10 % (20-40); MONOCYTE 7 % (0-10); NEUTROPHIL 68 % (50-75); TOTAL CELLS COUNTED 100
[2015-08-31 07:59] LABS: ANISOCYTOSIS SLIGHT; PLATELET ESTIMATE NORMAL (NORMAL)
[2015-08-31] MEDS: Phenytoin 100 mg/4 ml Oral Susp UD PEG SCH ×3 (10:57→17:41)
[2015-08-31] MEDS: Zinc Oxide Topical 30 gm Tube TOP SCH ×2 (10:57→17:41)
--- NOTE | 2015-08-31 14:02 | CP.PCM.PN ---
<Sandra Mercedes - Last Filed: 08/31/15 13:59> Subjective - Subjective Subjective: Pt seen and examined. Pt continues to be altered and not responsive to verbal stimuli and therefore unable to obtain ROS. Pt is on vent. Labs from today reviewed. Review of Systems - Review of Systems Systems not reviewed;Unavailable: Altered Mental Status Objective - Vital Signs/Intake and Output Vital Signs (last 24 hours): Vital Signs - 24 hr 08/30/15 08/30/15 08/31/15 14:15 20:37 06:01 Temperature 98.0 F 98.1 F 98.7 F Pulse Rate 85 85 88 Respiratory 20 18 18 Rate Blood Pressure 136/78 111/70 137/87 O2 Sat by Pulse 100 100 100 Oximetry 08/31/15 13:52 Temperature 98.2 F Pulse Rate 83 Respiratory 20 Rate Blood Pressure 129/83 O2 Sat by Pulse 100 Oximetry Intake and Output (last 12 hours): Intake & Output 08/30/15 08/31/15 08/31/15 18:59 06:59 18:59 Intake Total 700 Output Total 600 475 Balance -600 225 Intake: Tube Feeding 500 Other 200 Output: Urine 600 475 Urethral (Yoo) 600 475 - Medications Medications: Current Medications Ascorbic Acid (Vitamin C 500 Mg Tab) 500 mg PEG BID [facility] Last Admin: 08/31/15 10:57 Dose: 500 mg Aspirin (Aspirin) 325 mg PO DAILY [facility] Last Admin: 08/31/15 10:57 Dose: 325 mg Clopidogrel Bisulfate (Plavix) 75 mg PO DAILY [facility] Last Admin: 08/31/15 10:57 Dose: 75 mg Lisinopril (Zestril) 5 mg PO DAILY [facility] Last Admin: 08/31/15 10:57 Dose: 5 mg Nystatin (Nystop Topical Powder) 1 applic TOP BID [facility] Last Admin: 08/31/15 10:57 Dose: 1 applic Petrolatum (Desitin Original) 0 gm TOP BID [facility] Last Admin: 08/31/15 10:57 Dose: 1 applic Phenytoin (Dilantin) 100 mg PEG TID [facility] Last Admin: 08/31/15 10:57 Dose: 100 mg Polyethylene Glycol (Miralax) 17 gm PEG BID [facility] Last Admin: 08/21/15 11:26 Dose: Not Given Zinc Sulfate (Zinc Sulfate 220 Mg Cap) 220 mg PEG DAILY [facility] Last Admin: 08/31/15 10:58 Dose: 220 mg - Labs Labs (last 24 hours): Laboratory Results - last 24 hr 08/31/15 06:53 WBC 12.3 H RBC 3.55 L Hgb 11.0 L Hct 33.8 L MCV 95.3 H MCH 30.9 MCHC 32.4 L RDW 14.9 H Plt Count 335 MPV 8.1 Neut % (Auto) 69.2 Lymph % (Auto) 9.4 L Woods % (Auto) 8.6 Eos % (Auto) 12.3 H Baso % (Auto) 0.5 Neut # 8.5 H Lymph # 1.2 Woods # 1.1 H Eos # 1.5 H Baso # 0.1 Neutrophils % (Manual) 68 Band Neutrophils % 3 H Lymphocytes % (Manual) 10 L Monocytes % (Manual) 7 Eosinophils % (Manual) 11 H Basophils % (Manual) 1 Platelet Estimate Normal Anisocytosis (manual) Slight Sodium 140 Potassium 3.9 Chloride 102 Carbon Dioxide 31 H Anion Gap 11 BUN 19 Creatinine 0.5 L Est GFR ( Amer) > 60 Est GFR (Non-Af Amer) > 60 Random Glucose 121 H Calcium 8.7 Phosphorus 4.2 Magnesium 2.1 Total Bilirubin 0.3 AST 58 ALT 124 H D Alkaline Phosphatase 122 Total Protein 7.0 Albumin 3.2 L Globulin 3.8 Albumin/Globulin Ratio 0.8 L Phenytoin 5.7 L - Constitutional Appears: Non-toxic, No Acute Distress - Head Exam Head Exam: ATRAUMATIC, NORMAL INSPECTION, NORMOCEPHALIC - Eye Exam Eye Exam: EOMI, Normal appearance, PERRL Pupil Exam: PERRL - Respiratory Exam Respiratory Exam: Clear to PA & Lateral, NORMAL BREATHING PATTERN - Cardiovascular Exam Cardiovascular Exam: REGULAR RHYTHM, +S1, +S2 - GI/Abdominal Exam GI & Abdominal Exam: Normal Bowel Sounds, Soft - Extremities Exam Extremities exam: pedal pulses present - Neurological Exam Neurological exam: Altered - Skin Skin Exam: Dry, Normal Color, Warm Assessment/Plan (1) Anoxic encephalopathy Current Visit: Yes Status: Acute Comment: 08/31: status unchanged, will continue to monitor 08/30: awake and alert, eyes open, 08/29:Pt is more alert, able to open eyes; however, can not respond to verbal commands. will continue to monitor 08/28: Pt more alert today, continues to be unresponsive to verbal stimuli 08/27 No interval change in pt's condition, will continue to monitor 08/26 Patient's status remains the same 08/25 No improvement or change in mental status. Pt not responsive to verbal commands 08/24 Pt not responsive to verbal stimuli, only painful, unable to follow commands, pt continues to have swelling, minimal improvement, will continue to monitor, continue with dietary recommendations 08/22 Spontaneous movement, eyes open. given one dose of Lasix for increased swelling in upper extremities. GT bolus adjusted to dietary recommendations. 08/21 Spontaneous movement, opened eyes during examination. Per wound care nurse , Sabrina, pt is having skin breakdown due to excessive diarrhea. Recommended nystatin powder and sensicare cream to be applied on affected area. Pt's laxatives were removed. Gastric tube feeding will be made into 4 boluses, at 8am , 12pm, 4pm, 8 pm, per dietary recommendations. C diff cultures ordered. (2) UTI (lower urinary tract infection) Current Visit: Yes Status: Resolved Comment: Resolved Urine Cx (07/28): neg UA (07/28): shows no WBC or Leuk esterases Urine CX (07/18): Coag neg staph (positive for Pseudomonas in past) IV Cefepime 1gm q12h started 07/21 and completed 07/26. (3) Chest congestion Current Visit: Yes Status: Acute Comment: Sputum culture (07/28/15) with Pseudomonas aeruginosa s/p treatment Dr. Armstrong on case-help appreciated patient afebrile (4) Transaminitis Current Visit: Yes Status: Acute Comment: ALT and AlK phos elevated Hep panel negative Continue to monitor LFTs (5) Thrombophlebitis of superficial veins of upper extremities Current Visit: Yes Status: Acute Comment: Venous doppler (07/19) prelim report - thrombosis of right cephalic vein (superficial) Shows Abnormality Lovenox 40mg SC daily Warm compresses to area 15 minutes, 3x a day f/u final venous doppler report (6) Edema of upper extremity Current Visit: Yes Status: Acute Comment: Venous doppler (07/19) - thrombosis of right cephalic vein (superficial) - please see official report Continue warm compresses Monitor (7) Respiratory failure Current Visit: Yes Status: Acute Comment: 08/30--> DW Pulm--> Not able to wean the vent at this time, cont supportive vent mx Dr. Salgado (p[facility]) on case-help appreciated Patient on trach SIMV Monitor (8) STEMI (ST elevation myocardial infarction) Current Visit: Yes Status: Acute Comment: Continue Lisinopril 5mg PO daily Continue Plavix 75mg PO daily Continue ASA 325mg PO daily s/p stenting (9) Seizures Current Visit: Yes Status: Acute Comment: 08/30--> repeat Dilantin level in am, cont meds, SZ precaution Continue dilantin 100mg via PEG TID Continue to monitor for seizure activity (10) Prophylactic measure Current Visit: Yes Status: Acute Comment: SCDs Plavix <Nyunt,Rashel - Last Filed: 08/31/15 16:48> Objective - Vital Signs/Intake and Output Vital Signs (last 24 hours): Vital Signs - 24 hr 08/30/15 08/31/15 08/31/15 20:37 06:01 13:52 Temperature 98.1 F 98.7 F 98.2 F Pulse Rate 85 88 83 Respiratory 18 18 20 Rate Blood Pressure 111/70 137/87 129/83 O2 Sat by Pulse 100 100 100 Oximetry Intake and Output (last 12 hours): Intake & Output 08/30/15 08/31/15 08/31/15 18:59 06:59 18:59 Intake Total 700 Output Total 600 475 Balance -600 225 Intake: Tube Feeding 500 Other 200 Output: Urine 600 475 Urethral (Yoo) 600 475 - Medications Medications: Current Medications Ascorbic Acid (Vitamin C 500 Mg Tab) 500 mg PEG BID [facility] Last Admin: 08/31/15 10:57 Dose: 500 mg Aspirin (Aspirin) 325 mg PO DAILY [facility] Last Admin: 08/31/15 10:57 Dose: 325 mg Clopidogrel Bisulfate (Plavix) 75 mg PO DAILY [facility] Last Admin: 08/31/15 10:57 Dose: 75 mg Lisinopril (Zestril) 5 mg PO DAILY [facility] Last Admin: 08/31/15 10:57 Dose: 5 mg Nystatin (Nystop Topical Powder) 1 applic TOP BID [facility] Last Admin: 08/31/15 10:57 Dose: 1 applic Petrolatum (Desitin Original) 0 gm TOP BID [facility] Last Admin: 08/31/15 10:57 Dose: 1 applic Phenytoin (Dilantin) 100 mg PEG TID [facility] Last Admin: 08/31/15 14:42 Dose: 100 mg Polyethylene Glycol (Miralax) 17 gm PEG BID [facility] Last Admin: 08/21/15 11:26 Dose: Not Given Zinc Sulfate (Zinc Sulfate 220 Mg Cap) 220 mg PEG DAILY [facility] Last Admin: 08/31/15 10:58 Dose: 220 mg - Labs Labs (last 24 hours): Laboratory Results - last 24 hr 08/31/15 06:53 WBC 12.3 H RBC 3.55 L Hgb 11.0 L Hct 33.8 L MCV 95.3 H MCH 30.9 MCHC 32.4 L RDW 14.9 H Plt Count 335 MPV 8.1 Neut % (Auto) 69.2 Lymph % (Auto) 9.4 L Woods % (Auto) 8.6 Eos % (Auto) 12.3 H Baso % (Auto) 0.5 Neut # 8.5 H Lymph # 1.2 Woods # 1.1 H Eos # 1.5 H Baso # 0.1 Neutrophils % (Manual) 68 Band Neutrophils % 3 H Lymphocytes % (Manual) 10 L Monocytes % (Manual) 7 Eosinophils % (Manual) 11 H Basophils % (Manual) 1 Platelet Estimate Normal Anisocytosis (manual) Slight Sodium 140 Potassium 3.9 Chloride 102 Carbon Dioxide 31 H Anion Gap 11 BUN 19 Creatinine 0.5 L Est GFR ( Amer) > 60 Est GFR (Non-Af Amer) > 60 Random Glucose 121 H Calcium 8.7 Phosphorus 4.2 Magnesium 2.1 Total Bilirubin 0.3 AST 58 ALT 124 H D Alkaline Phosphatase 122 Total Protein 7.0 Albumin 3.2 L Globulin 3.8 Albumin/Globulin Ratio 0.8 L Phenytoin 5.7 L Assessment/Plan (1) Anoxic encephalopathy Current Visit: Yes Status: Acute Comment: 08/31: status unchanged, will continue to monitor 08/30: awake and alert, eyes open, 08/29:Pt is more alert, able to open eyes; however, can not respond to verbal commands. will continue to monitor 08/28: Pt more alert today, continues to be unresponsive to verbal stimuli 08/27 No interval change in pt's condition, will continue to monitor 08/26 Patient's status remains the same 08/25 No improvement or change in mental status. Pt not responsive to verbal commands 08/24 Pt not responsive to verbal stimuli, only painful, unable to follow commands, pt continues to have swelling, minimal improvement, will continue to monitor, continue with dietary recommendations 08/22 Spontaneous movement, eyes open. given one dose of Lasix for increased swelling in upper extremities. GT bolus adjusted to dietary recommendations. 08/21 Spontaneous movement, opened eyes during examination. Per wound care nurse , Sabrina, pt is having skin breakdown due to excessive diarrhea. Recommended nystatin powder and sensicare cream to be applied on affected area. Pt's laxatives were removed. Gastric tube feeding will be made into 4 boluses, at 8am , 12pm, 4pm, 8 pm, per dietary recommendations. C diff cultures ordered. (2) STEMI (ST elevation myocardial infarction) Current Visit: Yes Status: Acute Comment: Continue Lisinopril 5mg PO daily Continue Plavix 75mg PO daily Continue ASA 325mg PO daily s/p stenting (3) Respiratory failure Current Visit: Yes Status: Acute Comment: 08/30--> DW Pulm--> Not able to wean the vent at this time, cont supportive vent mx Dr. Salgado ([facility]) on case-help appreciated Patient on trach SIMV Monitor (4) Seizures Current Visit: Yes Status: Acute Comment: 08/30--> repeat Dilantin level in am, cont meds, SZ precaution Continue dilantin 100mg via PEG TID Continue to monitor for seizure activity (5) Prophylactic measure Current Visit: Yes Status: Acute Comment: SCDs Plavix Attending/Attestation - Attestation I have personally seen and examined this patient.: Yes I have fully participated in the care of the patient.: Yes I have reviewed all pertinent clinical information: Yes Notes (Text): 08/31/15 16:43 Patient seen and examined during round with residents no new events cont supportive mx pt family was discussed at length ( and daughter) by myself. pt's still wants him to be full code because she has liver cancer with 3- 6 months to live according to her and her daughter She was on major stress and and she has been coming to see him every day to allieviate her stress, She said "please keep him alive when I am alive"
--- NOTE | 2015-09-01 04:42 | CP.PCM.PN ---
<Scout Marinelli - Last Filed: 09/01/15 04:46> Subjective - Subjective Subjective: Pt seen and examined. Pt is on vent and AMS. Unresponsive to verbal stimuli. Pt has spontaneous movements and open his eyes. Playing Khmer [employer]og[employer] on [employer] and having one sided conversation in Mandarin. Review of Systems - Review of Systems Systems not reviewed;Unavailable: Acuity of Condition Objective - Vital Signs/Intake and Output Vital Signs (last 24 hours): Vital Signs - 24 hr 08/31/15 08/31/15 08/31/15 06:01 13:52 21:36 Temperature 98.7 F 98.2 F 98.0 F Pulse Rate 88 83 77 Respiratory 18 20 20 Rate Blood Pressure 137/87 129/83 112/74 O2 Sat by Pulse 100 100 99 Oximetry Intake and Output (last 12 hours): Intake & Output 08/31/15 08/31/15 09/01/15 06:59 18:59 06:59 Intake Total 700 Output Total 475 700 Balance 225 -700 Intake: Tube Feeding 500 Other 200 Output: Urine 475 700 Urethral (Yoo) 475 700 - Medications Medications: Current Medications Ascorbic Acid (Vitamin C 500 Mg Tab) 500 mg PEG BID [facility] Last Admin: 08/31/15 17:41 Dose: 500 mg Aspirin (Aspirin) 325 mg PO DAILY [facility] Last Admin: 08/31/15 10:57 Dose: 325 mg Clopidogrel Bisulfate (Plavix) 75 mg PO DAILY [facility] Last Admin: 08/31/15 10:57 Dose: 75 mg Lisinopril (Zestril) 5 mg PO DAILY [facility] Last Admin: 08/31/15 10:57 Dose: 5 mg Nystatin (Nystop Topical Powder) 1 applic TOP BID [facility] Last Admin: 08/31/15 17:42 Dose: 1 applic Petrolatum (Desitin Original) 0 gm TOP BID [facility] Last Admin: 08/31/15 17:41 Dose: 1 applic Phenytoin (Dilantin) 100 mg PEG TID [facility] Last Admin: 08/31/15 17:41 Dose: 100 mg Polyethylene Glycol (Miralax) 17 gm PEG BID [facility] Last Admin: 08/21/15 11:26 Dose: Not Given Zinc Sulfate (Zinc Sulfate 220 Mg Cap) 220 mg PEG DAILY [facility] Last Admin: 08/31/15 10:58 Dose: 220 mg - Labs Labs (last 24 hours): Laboratory Results - last 24 hr 08/31/15 06:53 WBC 12.3 H RBC 3.55 L Hgb 11.0 L Hct 33.8 L MCV 95.3 H MCH 30.9 MCHC 32.4 L RDW 14.9 H Plt Count 335 MPV 8.1 Neut % (Auto) 69.2 Lymph % (Auto) 9.4 L [place] % (Auto) 8.6 Eos % (Auto) 12.3 H Baso % (Auto) 0.5 Neut # 8.5 H Lymph # 1.2 [place] # 1.1 H Eos # 1.5 H Baso # 0.1 Neutrophils % (Manual) 68 Band Neutrophils % 3 H Lymphocytes % (Manual) 10 L Monocytes % (Manual) 7 Eosinophils % (Manual) 11 H Basophils % (Manual) 1 Platelet Estimate Normal Anisocytosis (manual) Slight Sodium 140 Potassium 3.9 Chloride 102 Carbon Dioxide 31 H Anion Gap 11 BUN 19 Creatinine 0.5 L Est GFR ( Amer) > 60 Est GFR (Non-Af Amer) > 60 Random Glucose 121 H Calcium 8.7 Phosphorus 4.2 Magnesium 2.1 Total Bilirubin 0.3 AST 58 ALT 124 H D Alkaline Phosphatase 122 Total Protein 7.0 Albumin 3.2 L Globulin 3.8 Albumin/Globulin Ratio 0.8 L Phenytoin 5.7 L - Constitutional Appears: Non-toxic, No Acute Distress - Head Exam Head Exam: ATRAUMATIC, NORMAL INSPECTION, NORMOCEPHALIC - Eye Exam Eye Exam: Normal appearance Pupil Exam: NORMAL ACCOMODATION - ENT Exam Additional comments: On vent - Respiratory Exam Respiratory Exam: Clear to PA & Lateral, NORMAL BREATHING PATTERN. absent: Rales, Rhonchi Additional comments: On Vent - Cardiovascular Exam Cardiovascular Exam: +S1, +S2. absent: Gallop, Rubs - GI/Abdominal Exam GI & Abdominal Exam: Normal Bowel Sounds, Soft - Neurological Exam Neurological exam: Altered - Skin Skin Exam: Normal Color Assessment/Plan (1) Seizures Current Visit: Yes Status: Acute Comment: 09/01: dilantin level 5.7, continue current management. 08/30--> repeat Dilantin level in am, cont meds, SZ precaution Continue dilantin 100mg via PEG TID Continue to monitor for seizure activity (2) Anoxic encephalopathy Current Visit: Yes Status: Acute Comment: 09/01: Continue to monitor, unchanged status. 08/31: status unchanged, will continue to monitor 08/30: awake and alert, eyes open, 08/29:Pt is more alert, able to open eyes; however, can not respond to verbal commands. will continue to monitor 08/28: Pt more alert today, continues to be unresponsive to verbal stimuli 08/27 No interval change in pt's condition, will continue to monitor 08/26 Patient's status remains the same 08/25 No improvement or change in mental status. Pt not responsive to verbal commands 08/24 Pt not responsive to verbal stimuli, only painful, unable to follow commands, pt continues to have swelling, minimal improvement, will continue to monitor, continue with dietary recommendations 08/22 Spontaneous movement, eyes open. given one dose of Lasix for increased swelling in upper extremities. GT bolus adjusted to dietary recommendations. 08/21 Spontaneous movement, opened eyes during examination. Per wound care nurse , Sabrina, pt is having skin breakdown due to excessive diarrhea. Recommended nystatin powder and sensicare cream to be applied on affected area. Pt's laxatives were removed. Gastric tube feeding will be made into 4 boluses, at 8am , 12pm, 4pm, 8 pm, per dietary recommendations. C diff cultures ordered. (3) Respiratory failure Current Visit: Yes Status: Acute Comment: 08/30--> DW Pulm--> Not able to wean the vent at this time, cont supportive vent mx Dr. Salgado ([facility]) on case-help appreciated Patient on trach SIMV Monitor (4) Prophylactic measure Current Visit: Yes Status: Acute Comment: SCDs Plavix <Nyunt,Rashel - Last Filed: 09/01/15 18:37> Objective - Vital Signs/Intake and Output Vital Signs (last 24 hours): Vital Signs - 24 hr 08/31/15 09/01/15 09/01/15 21:36 06:09 14:56 Temperature 98.0 F 99.9 F H 98.3 F Pulse Rate 77 98 H 77 Respiratory 20 20 20 Rate Blood Pressure 112/74 133/74 133/83 O2 Sat by Pulse 99 100 100 Oximetry Intake and Output (last 12 hours): Intake & Output 08/31/15 09/01/15 09/01/15 18:59 06:59 18:59 Intake Total 950 Output Total 1400 900 Balance -450 -900 Weight 104 lb Intake: Tube Feeding 750 Other 200 Output: Urine 1400 900 Urethral (Yoo) 1400 900 - Medications Medications: Current Medications Ascorbic Acid (Vitamin C 500 Mg Tab) 500 mg PEG BID [facility] Last Admin: 09/01/15 17:07 Dose: 500 mg Aspirin (Aspirin) 325 mg PO DAILY [facility] Last Admin: 09/01/15 11:07 Dose: 325 mg Clopidogrel Bisulfate (Plavix) 75 mg PO DAILY [facility] Last Admin: 09/01/15 11:07 Dose: 75 mg Lisinopril (Zestril) 5 mg PO DAILY [facility] Last Admin: 09/01/15 11:07 Dose: 5 mg Nystatin (Nystop Topical Powder) 1 applic TOP BID [facility] Last Admin: 09/01/15 17:20 Dose: 1 applic Petrolatum (Desitin Original) 0 gm TOP BID [facility] Last Admin: 09/01/15 17:19 Dose: 1 applic Phenytoin (Dilantin) 100 mg PEG TID [facility] Last Admin: 09/01/15 17:07 Dose: 100 mg Polyethylene Glycol (Miralax) 17 gm PEG BID [facility] Last Admin: 08/21/15 11:26 Dose: Not Given Zinc Sulfate (Zinc Sulfate 220 Mg Cap) 220 mg PEG DAILY [facility] Last Admin: 09/01/15 11:07 Dose: 220 mg Assessment/Plan (1) Anoxic encephalopathy Current Visit: Yes Status: Acute Comment: 09/01: Continue to monitor, unchanged status. 08/31: status unchanged, will continue to monitor 08/30: awake and alert, eyes open, 08/29:Pt is more alert, able to open eyes; however, can not respond to verbal commands. will continue to monitor 08/28: Pt more alert today, continues to be unresponsive to verbal stimuli 08/27 No interval change in pt's condition, will continue to monitor 08/26 Patient's status remains the same 08/25 No improvement or change in mental status. Pt not responsive to verbal commands 08/24 Pt not responsive to verbal stimuli, only painful, unable to follow commands, pt continues to have swelling, minimal improvement, will continue to monitor, continue with dietary recommendations 08/22 Spontaneous movement, eyes open. given one dose of Lasix for increased swelling in upper extremities. GT bolus adjusted to dietary recommendations. 08/21 Spontaneous movement, opened eyes during examination. Per wound care nurse , Sabrina, pt is having skin breakdown due to excessive diarrhea. Recommended nystatin powder and sensicare cream to be applied on affected area. Pt's laxatives were removed. Gastric tube feeding will be made into 4 boluses, at 8am , 12pm, 4pm, 8 pm, per dietary recommendations. C diff cultures ordered. (2) STEMI (ST elevation myocardial infarction) Current Visit: Yes Status: Acute Comment: Continue Lisinopril 5mg PO daily Continue Plavix 75mg PO daily Continue ASA 325mg PO daily s/p stenting (3) Respiratory failure Current Visit: Yes Status: Acute Comment: 08/30--> DW Pulm--> Not able to wean the vent at this time, cont supportive vent mx Dr. Salgado ([facility]) on case-help appreciated Patient on trach SIMV Monitor (4) Seizures Current Visit: Yes Status: Acute Comment: 09/01: dilantin level 5.7, continue current management. 08/30--> repeat Dilantin level in am, cont meds, SZ precaution Continue dilantin 100mg via PEG TID Continue to monitor for seizure activity (5) Prophylactic measure Current Visit: Yes Status: Acute Comment: SCDs Plavix Attending/Attestation - Attestation I have personally seen and examined this patient.: Yes I have fully participated in the care of the patient.: Yes I have reviewed all pertinent clinical information: Yes Notes (Text): 09/01/15 18:37 Patient seen and examined during round with resident cont vent mx as per Pul cont supportive management
[2015-09-01] MEDS: Phenytoin 100 mg/4 ml Oral Susp UD PEG SCH ×3 (11:07→17:07)
[2015-09-01] MEDS: Zinc Oxide Topical 30 gm Tube TOP SCH ×2 (11:11→17:19)
--- NOTE | 2015-09-02 05:42 | CP.PCM.PN ---
<MarinelliScout - Last Filed: 09/02/15 05:39> Subjective - Subjective Subjective: Pt seen and examined at bedside. Pt unresponsive to verbal stimuli. Opens eyes and move extremities spontaneously. Review of Systems - Review of Systems Systems not reviewed;Unavailable: Acuity of Condition Objective - Vital Signs/Intake and Output Vital Signs (last 24 hours): Vital Signs - 24 hr 09/01/15 09/01/15 09/01/15 06:09 14:56 21:29 Temperature 99.9 F H 98.3 F 98.7 F Pulse Rate 98 H 77 91 H Respiratory 20 20 18 Rate Blood Pressure 133/74 133/83 146/82 O2 Sat by Pulse 100 100 100 Oximetry Intake and Output (last 12 hours): Intake & Output 09/01/15 09/01/15 09/02/15 06:59 18:59 06:59 Intake Total 950 Output Total 1400 900 600 Balance -450 -900 -600 Weight 104 lb Intake: Tube Feeding 750 Other 200 Output: Urine 1400 900 600 Urethral (Yoo) 1400 900 600 - Medications Medications: Current Medications Ascorbic Acid (Vitamin C 500 Mg Tab) 500 mg PEG BID [facility] Last Admin: 09/01/15 17:07 Dose: 500 mg Aspirin (Aspirin) 325 mg PO DAILY [facility] Last Admin: 09/01/15 11:07 Dose: 325 mg Clopidogrel Bisulfate (Plavix) 75 mg PO DAILY [facility] Last Admin: 09/01/15 11:07 Dose: 75 mg Lisinopril (Zestril) 5 mg PO DAILY [facility] Last Admin: 09/01/15 11:07 Dose: 5 mg Nystatin (Nystop Topical Powder) 1 applic TOP BID [facility] Last Admin: 09/01/15 17:20 Dose: 1 applic Petrolatum (Desitin Original) 0 gm TOP BID [facility] Last Admin: 09/01/15 17:19 Dose: 1 applic Phenytoin (Dilantin) 100 mg PEG TID [facility] Last Admin: 09/01/15 17:07 Dose: 100 mg Polyethylene Glycol (Miralax) 17 gm PEG BID [facility] Last Admin: 08/21/15 11:26 Dose: Not Given Zinc Sulfate (Zinc Sulfate 220 Mg Cap) 220 mg PEG DAILY [facility] Last Admin: 09/01/15 11:07 Dose: 220 mg - Constitutional Appears: Non-toxic, No Acute Distress - Head Exam Head Exam: ATRAUMATIC, NORMAL INSPECTION, NORMOCEPHALIC - Eye Exam Eye Exam: Normal appearance Pupil Exam: NORMAL ACCOMODATION - Respiratory Exam Respiratory Exam: Clear to PA & Lateral, NORMAL BREATHING PATTERN Additional comments: On vent - Cardiovascular Exam Cardiovascular Exam: REGULAR RHYTHM, +S1, +S2 - GI/Abdominal Exam GI & Abdominal Exam: Normal Bowel Sounds, Soft - Neurological Exam Neurological exam: Altered - Skin Skin Exam: Normal Color Assessment/Plan (1) Seizures Current Visit: Yes Status: Acute Comment: 09/02: Continue current management. 09/01: dilantin level 5.7, continue current management. 08/30--> repeat Dilantin level in am, cont meds, SZ precaution Continue dilantin 100mg via PEG TID Continue to monitor for seizure activity (2) Anoxic encephalopathy Current Visit: Yes Status: Acute Comment: 09/02: Continue to monitor. 09/01: Continue to monitor, unchanged status. 08/31: status unchanged, will continue to monitor 08/30: awake and alert, eyes open, 08/29:Pt is more alert, able to open eyes; however, can not respond to verbal commands. will continue to monitor 08/28: Pt more alert today, continues to be unresponsive to verbal stimuli 08/27 No interval change in pt's condition, will continue to monitor 08/26 Patient's status remains the same 08/25 No improvement or change in mental status. Pt not responsive to verbal commands 08/24 Pt not responsive to verbal stimuli, only painful, unable to follow commands, pt continues to have swelling, minimal improvement, will continue to monitor, continue with dietary recommendations 08/22 Spontaneous movement, eyes open. given one dose of Lasix for increased swelling in upper extremities. GT bolus adjusted to dietary recommendations. 08/21 Spontaneous movement, opened eyes during examination. Per wound care nurse , Sabrina, pt is having skin breakdown due to excessive diarrhea. Recommended nystatin powder and sensicare cream to be applied on affected area. Pt's laxatives were removed. Gastric tube feeding will be made into 4 boluses, at 8am , 12pm, 4pm, 8 pm, per dietary recommendations. C diff cultures ordered. (3) Respiratory failure Current Visit: Yes Status: Acute Comment: 08/30--> RADHA Pulm--> Not able to wean the vent at this time, cont supportive vent mx Dr. Salgado (pulm) on case-help appreciated Patient on trach SIMV Monitor (4) Prophylactic measure Current Visit: Yes Status: Acute Comment: SCDs Plavix <Rashel Rodrigues - Last Filed: 09/02/15 16:13> Objective - Vital Signs/Intake and Output Vital Signs (last 24 hours): Vital Signs - 24 hr 09/01/15 09/02/15 09/02/15 21:29 05:52 14:23 Temperature 98.7 F 99.4 F 98.4 F Pulse Rate 91 H 103 H 67 Respiratory 18 14 20 Rate Blood Pressure 146/82 123/75 124/79 O2 Sat by Pulse 100 98 97 Oximetry Intake and Output (last 12 hours): Intake & Output 09/01/15 09/02/15 09/02/15 18:59 06:59 18:59 Intake Total 950 Output Total 900 900 400 Balance -900 50 -400 Weight 104 lb Intake: Tube Feeding 750 Other 200 Output: Urine 900 900 400 Urethral (Yoo) 900 900 400 - Medications Medications: Current Medications Ascorbic Acid (Vitamin C 500 Mg Tab) 500 mg PEG BID [facility] Last Admin: 09/01/15 17:07 Dose: 500 mg Aspirin (Aspirin) 325 mg PO DAILY [facility] Last Admin: 09/02/15 10:25 Dose: 325 mg Clopidogrel Bisulfate (Plavix) 75 mg PO DAILY [facility] Last Admin: 09/02/15 10:26 Dose: 75 mg Lisinopril (Zestril) 5 mg PO DAILY [facility] Last Admin: 09/02/15 10:25 Dose: 5 mg Nystatin (Nystop Topical Powder) 1 applic TOP BID [facility] Last Admin: 09/02/15 10:26 Dose: 1 applic Petrolatum (Desitin Original) 0 gm TOP BID [facility] Last Admin: 09/02/15 10:27 Dose: 1 applic Phenytoin (Dilantin) 100 mg PEG TID [facility] Last Admin: 09/02/15 13:58 Dose: 100 mg Polyethylene Glycol (Miralax) 17 gm PEG BID [facility] Last Admin: 08/21/15 11:26 Dose: Not Given Zinc Sulfate (Zinc Sulfate 220 Mg Cap) 220 mg PEG DAILY [facility] Last Admin: 09/02/15 10:25 Dose: 220 mg Assessment/Plan (1) Anoxic encephalopathy Current Visit: Yes Status: Acute Comment: 09/02: Continue to monitor. 09/01: Continue to monitor, unchanged status. 08/31: status unchanged, will continue to monitor 08/30: awake and alert, eyes open, 08/29:Pt is more alert, able to open eyes; however, can not respond to verbal commands. will continue to monitor 08/28: Pt more alert today, continues to be unresponsive to verbal stimuli 08/27 No interval change in pt's condition, will continue to monitor 08/26 Patient's status remains the same 08/25 No improvement or change in mental status. Pt not responsive to verbal commands 08/24 Pt not responsive to verbal stimuli, only painful, unable to follow commands, pt continues to have swelling, minimal improvement, will continue to monitor, continue with dietary recommendations 08/22 Spontaneous movement, eyes open. given one dose of Lasix for increased swelling in upper extremities. GT bolus adjusted to dietary recommendations. 08/21 Spontaneous movement, opened eyes during examination. Per wound care nurse Sabrina, pt is having skin breakdown due to excessive diarrhea. Recommended nystatin powder and sensicare cream to be applied on affected area. Pt's laxatives were removed. Gastric tube feeding will be made into 4 boluses, at 8am , 12pm, 4pm, 8 pm, per dietary recommendations. C diff cultures ordered. (2) STEMI (ST elevation myocardial infarction) Current Visit: Yes Status: Acute Comment: Continue Lisinopril 5mg PO daily Continue Plavix 75mg PO daily Continue ASA 325mg PO daily s/p stenting (3) Respiratory failure Current Visit: Yes Status: Acute Comment: 08/30--> DW Pulm--> Not able to wean the vent at this time, cont supportive vent mx Dr. Salgado (pul) on case-help appreciated Patient on trach SIMV Monitor (4) Seizures Current Visit: Yes Status: Acute Comment: 09/02: Continue current management. 09/01: dilantin level 5.7, continue current management. 08/30--> repeat Dilantin level in am, cont meds, SZ precaution Continue dilantin 100mg via PEG TID Continue to monitor for seizure activity (5) Prophylactic measure Current Visit: Yes Status: Acute Comment: SCDs Plavix Attending/Attestation - Attestation I have personally seen and examined this patient.: Yes I have fully participated in the care of the patient.: Yes I have reviewed all pertinent clinical information: Yes Notes (Text): 09/02/15 16:12 Patient seen and examined during round with resident pt has no new events, non verbal remaisn on vent, cont TF cont supportive mx
[2015-09-02] MEDS: Phenytoin 100 mg/4 ml Oral Susp UD PEG SCH ×3 (10:25→17:39)
[2015-09-02] MEDS: Zinc Oxide Topical 30 gm Tube TOP SCH ×2 (10:27→18:10)
[2015-09-03] MEDS: Zinc Oxide Topical 30 gm Tube TOP SCH ×2 (09:18→17:49)
[2015-09-03] MEDS: Phenytoin 100 mg/4 ml Oral Susp UD PEG SCH ×3 (09:18→17:48)
--- NOTE | 2015-09-03 15:56 | CP.PCM.PN ---
<Sandra Merceeds - Last Filed: 09/03/15 15:53> Subjective - Subjective Subjective: Pt seen and examined. Pt is on vent and nonresponsive to verbal stimuli and therefore unable to obtain ROS. Pt continues to have L hand swelling, will give Lasix 40mg IVp once. Review of Systems - Review of Systems Systems not reviewed;Unavailable: Altered Mental Status Objective - Vital Signs/Intake and Output Vital Signs (last 24 hours): Vital Signs - 24 hr 09/02/15 09/03/15 09/03/15 22:00 05:55 11:24 Temperature 98.5 F 98.6 F Pulse Rate 95 H 85 Respiratory 19 20 Rate Blood Pressure 112/73 131/89 136/83 O2 Sat by Pulse 98 98 Oximetry 09/03/15 14:00 Temperature 98.1 F Pulse Rate 76 Respiratory 20 Rate Blood Pressure 137/89 O2 Sat by Pulse 100 Oximetry Intake and Output (last 12 hours): Intake & Output 09/02/15 09/03/15 09/03/15 18:59 06:59 18:59 Output Total 400 200 525 Balance -400 -200 -525 Weight 104 lb Output: Urine 400 200 525 Urethral (Yoo) 400 200 525 Other: # Bowel Movements 0 - Medications Medications: Current Medications Ascorbic Acid (Vitamin C 500 Mg Tab) 500 mg PEG BID [facility] Last Admin: 09/03/15 09:18 Dose: 500 mg Aspirin (Aspirin) 325 mg PO DAILY [facility] Last Admin: 09/03/15 09:17 Dose: 325 mg Clopidogrel Bisulfate (Plavix) 75 mg PO DAILY [facility] Last Admin: 09/03/15 09:18 Dose: 75 mg Lisinopril (Zestril) 5 mg PO DAILY [facility] Last Admin: 09/03/15 09:18 Dose: 5 mg Nystatin (Nystop Topical Powder) 1 applic TOP BID [facility] Last Admin: 09/03/15 09:19 Dose: 1 applic Petrolatum (Desitin Original) 0 gm TOP BID [facility] Last Admin: 09/03/15 09:18 Dose: 1 applic Phenytoin (Dilantin) 100 mg PEG TID [facility] Last Admin: 09/03/15 15:00 Dose: 100 mg Polyethylene Glycol (Miralax) 17 gm PEG BID [facility] Last Admin: 08/21/15 11:26 Dose: Not Given Zinc Sulfate (Zinc Sulfate 220 Mg Cap) 220 mg PEG DAILY [facility] Last Admin: 09/03/15 09:19 Dose: 220 mg - Constitutional Appears: Non-toxic, No Acute Distress - Head Exam Head Exam: NORMAL INSPECTION - Eye Exam Eye Exam: PERRL Pupil Exam: PERRL - Respiratory Exam Respiratory Exam: Clear to PA & Lateral, NORMAL BREATHING PATTERN - Cardiovascular Exam Cardiovascular Exam: REGULAR RHYTHM, +S1, +S2 - GI/Abdominal Exam GI & Abdominal Exam: Normal Bowel Sounds, Soft - Extremities Exam Extremities exam: pedal pulses present Additional comments: L hand edema - Neurological Exam Neurological exam: Altered - Psychiatric Exam Psychiatric exam: Normal Affect, Normal Mood - Skin Skin Exam: Normal Color Assessment/Plan (1) Anoxic encephalopathy Current Visit: Yes Status: Acute Comment: 09/03: No interval change, cont to monitor 09/02: Continue to monitor. 09/01: Continue to monitor, unchanged status. 08/31: status unchanged, will continue to monitor 08/30: awake and alert, eyes open, 08/29:Pt is more alert, able to open eyes; however, can not respond to verbal commands. will continue to monitor 08/28: Pt more alert today, continues to be unresponsive to verbal stimuli 08/27 No interval change in pt's condition, will continue to monitor 08/26 Patient's status remains the same 08/25 No improvement or change in mental status. Pt not responsive to verbal commands 08/24 Pt not responsive to verbal stimuli, only painful, unable to follow commands, pt continues to have swelling, minimal improvement, will continue to monitor, continue with dietary recommendations 08/22 Spontaneous movement, eyes open. given one dose of Lasix for increased swelling in upper extremities. GT bolus adjusted to dietary recommendations. 08/21 Spontaneous movement, opened eyes during examination. Per wound care nurse , Sabrina, pt is having skin breakdown due to excessive diarrhea. Recommended nystatin powder and sensicare cream to be applied on affected area. Pt's laxatives were removed. Gastric tube feeding will be made into 4 boluses, at 8am , 12pm, 4pm, 8 pm, per dietary recommendations. C diff cultures ordered. (2) Chest congestion Current Visit: Yes Status: Acute Comment: Sputum culture (07/28/15) with Pseudomonas aeruginosa s/p treatment Dr. Armstrong on case-help appreciated patient afebrile (3) Transaminitis Current Visit: Yes Status: Acute Comment: ALT and AlK phos elevated Hep panel negative Continue to monitor LFTs (4) Thrombophlebitis of superficial veins of upper extremities Current Visit: Yes Status: Acute Comment: Venous doppler (07/19) prelim report - thrombosis of right cephalic vein (superficial) Shows Abnormality Lovenox 40mg SC daily Warm compresses to area 15 minutes, 3x a day f/u final venous doppler report (5) Edema of upper extremity Current Visit: Yes Status: Acute Comment: Venous doppler (07/19) - thrombosis of right cephalic vein (superficial) - please see official report Continue warm compresses Monitor (6) Respiratory failure Current Visit: Yes Status: Acute Comment: 08/30--> DW Pulm--> Not able to wean the vent at this time, cont supportive vent mx Dr. Salgado (pul) on case-help appreciated Patient on trach SIMV Monitor (7) STEMI (ST elevation myocardial infarction) Current Visit: Yes Status: Acute Comment: Continue Lisinopril 5mg PO daily Continue Plavix 75mg PO daily Continue ASA 325mg PO daily s/p stenting (8) Seizures Current Visit: Yes Status: Acute Comment: 09/02: Continue current management. 09/01: dilantin level 5.7, continue current management. 08/30--> repeat Dilantin level in am, cont meds, SZ precaution Continue dilantin 100mg via PEG TID Continue to monitor for seizure activity (9) Prophylactic measure Current Visit: Yes Status: Acute Comment: SCDs Plavix <Donnell Ying M - Last Filed: 09/03/15 16:15> Objective - Vital Signs/Intake and Output Vital Signs (last 24 hours): Vital Signs - 24 hr 09/02/15 09/03/15 09/03/15 22:00 05:55 11:24 Temperature 98.5 F 98.6 F Pulse Rate 95 H 85 Respiratory 19 20 Rate Blood Pressure 112/73 131/89 136/83 O2 Sat by Pulse 98 98 Oximetry 09/03/15 14:00 Temperature 98.1 F Pulse Rate 76 Respiratory 20 Rate Blood Pressure 137/89 O2 Sat by Pulse 100 Oximetry Intake and Output (last 12 hours): Intake & Output 09/02/15 09/03/15 09/03/15 18:59 06:59 18:59 Output Total 400 200 525 Balance -400 -200 -525 Weight 104 lb Output: Urine 400 200 525 Urethral (Yoo) 400 200 525 Other: # Bowel Movements 0 - Medications Medications: Current Medications Ascorbic Acid (Vitamin C 500 Mg Tab) 500 mg PEG BID [facility] Last Admin: 09/03/15 09:18 Dose: 500 mg Aspirin (Aspirin) 325 mg PO DAILY [facility] Last Admin: 09/03/15 09:17 Dose: 325 mg Clopidogrel Bisulfate (Plavix) 75 mg PO DAILY [facility] Last Admin: 09/03/15 09:18 Dose: 75 mg Lisinopril (Zestril) 5 mg PO DAILY [facility] Last Admin: 09/03/15 09:18 Dose: 5 mg Nystatin (Nystop Topical Powder) 1 applic TOP BID [facility] Last Admin: 09/03/15 09:19 Dose: 1 applic Petrolatum (Desitin Original) 0 gm TOP BID [facility] Last Admin: 09/03/15 09:18 Dose: 1 applic Phenytoin (Dilantin) 100 mg PEG TID [facility] Last Admin: 09/03/15 15:00 Dose: 100 mg Polyethylene Glycol (Miralax) 17 gm PEG BID [facility] Last Admin: 08/21/15 11:26 Dose: Not Given Zinc Sulfate (Zinc Sulfate 220 Mg Cap) 220 mg PEG DAILY [facility] Last Admin: 09/03/15 09:19 Dose: 220 mg Attending/Attestation - Attestation I have personally seen and examined this patient.: Yes I have fully participated in the care of the patient.: Yes I have reviewed all pertinent clinical information: Yes Notes (Text): 09/03/15 16:14 Patient seen and examined at bedside with the resident. No change in clinical condition. Family at bedside. Continue with current management. Awaiting placement.
[2015-09-04 08:22] LABS: BASO # 0.1 K/uL (0.0-0.2); BASO % 0.4 % (0.0-2.0); EOS # 1.6 K/uL (0.0-0.7); EOS % 11.6 % (0.0-4.0); HEMOGLOBIN 12.5 g/dL (12.0-18.0); LYMPH # 1.5 K/uL (1.0-4.3); LYMPH % 10.6 % (20.0-40.0); MEAN CORPUSCULAR HEMOGLOBIN 31.2 pg (27.0-31.0); MEAN CORPUSCULAR HGB CONC 32.9 g/dL (33.0-37.0); MEAN PLATELET VOLUME 8.1 fL (7.2-11.7); MONO # 1.1 K/uL (0.0-0.8); MONO % 7.6 % (0.0-10.0); NEUT # 9.7 K/uL (1.8-7.0); NEUT % 69.8 % (50.0-75.0); RED CELL DISTRIBUTION WIDTH 14.5 % (11.5-14.5); WHITE BLOOD COUNT 13.8 K/uL (4.8-10.8)
[2015-09-04 09:19] LABS: ALBUMIN 3.4 g/dL (3.5-5.0)
[2015-09-04 09:22] LABS: ALB/GLOB RATIO 0.8 (1.0-2.1); ALT/SGPT 107 U/L (21-72); AST/SGOT 48 U/L (17-59); BLOOD UREA NITROGEN 30 mg/dL (9-20); GFR NON-AFRICAN AMERICAN > 60
[2015-09-04 09:23] LABS: CALCIUM 8.6 mg/dL (8.4-10.2)
[2015-09-04] MEDS: Phenytoin 100 mg/4 ml Oral Susp UD PEG SCH ×3 (10:10→17:17)
[2015-09-04] MEDS: Zinc Oxide Topical 30 gm Tube TOP SCH ×2 (10:11→17:17)
--- NOTE | 2015-09-04 14:06 | CP.PCM.PN ---
<Sandra Mercedes - Last Filed: 09/04/15 14:04> Subjective - Subjective Subjective: Pt seen and examined. Pt is on vent and nonresponsive to verbal stimuli and therefore unable to obtain ROS. Pt had labs drawn today and WBC is 13.8. Will continue to monitor and treat accordingly. Review of Systems - Review of Systems Systems not reviewed;Unavailable: Altered Mental Status Objective - Vital Signs/Intake and Output Vital Signs (last 24 hours): Vital Signs - 24 hr 09/03/15 09/04/15 09/04/15 21:44 06:00 11:45 Temperature 97.9 F 98.3 F Pulse Rate 86 87 87 Respiratory 18 20 Rate Blood Pressure 127/91 H 143/89 O2 Sat by Pulse 96 98 Oximetry Intake and Output (last 12 hours): Intake & Output 09/03/15 09/04/15 09/04/15 18:59 06:59 18:59 Intake Total 900 Output Total 525 1700 Balance -525 -800 Intake: Tube Feeding 700 Other 200 Output: Urine 525 1700 Urethral (Yoo) 525 1700 Other: # Bowel Movements 0 1 - Medications Medications: Current Medications Ascorbic Acid (Vitamin C 500 Mg Tab) 500 mg PEG BID [facility] Last Admin: 09/04/15 10:10 Dose: 500 mg Aspirin (Aspirin) 325 mg PO DAILY [facility] Last Admin: 09/04/15 10:11 Dose: 325 mg Clopidogrel Bisulfate (Plavix) 75 mg PO DAILY [facility] Last Admin: 09/04/15 10:11 Dose: 75 mg Lisinopril (Zestril) 5 mg PO DAILY [facility] Last Admin: 09/04/15 10:11 Dose: 5 mg Nystatin (Nystop Topical Powder) 1 applic TOP BID [facility] Last Admin: 09/04/15 10:11 Dose: 1 applic Petrolatum (Desitin Original) 0 gm TOP BID [facility] Last Admin: 09/04/15 10:11 Dose: 1 applic Phenytoin (Dilantin) 100 mg PEG TID [facility] Last Admin: 09/04/15 10:10 Dose: 100 mg Polyethylene Glycol (Miralax) 17 gm PEG BID [facility] Last Admin: 08/21/15 11:26 Dose: Not Given Zinc Sulfate (Zinc Sulfate 220 Mg Cap) 220 mg PEG DAILY [facility] Last Admin: 09/04/15 10:11 Dose: 220 mg - Labs Labs (last 24 hours): Laboratory Results - last 24 hr 09/04/15 08:11 WBC 13.8 H RBC 4.00 L Hgb 12.5 Hct 38.0 MCV 95.0 H MCH 31.2 H MCHC 32.9 L RDW 14.5 Plt Count 361 MPV 8.1 Neut % (Auto) 69.8 Lymph % (Auto) 10.6 L [place] % (Auto) 7.6 Eos % (Auto) 11.6 H Baso % (Auto) 0.4 Neut # 9.7 H Lymph # 1.5 [place] # 1.1 H Eos # 1.6 H Baso # 0.1 Sodium 141 Potassium 3.9 Chloride 101 Carbon Dioxide 32 H Anion Gap 12 BUN 30 H Creatinine 0.6 L Est GFR ( Amer) > 60 Est GFR (Non-Af Amer) > 60 Random Glucose 144 H Calcium 8.6 Phosphorus 4.1 Magnesium 2.2 Total Bilirubin 0.4 AST 48 ALT 107 H Alkaline Phosphatase 145 H Total Protein 7.7 Albumin 3.4 L Globulin 4.3 H Albumin/Globulin Ratio 0.8 L - Head Exam Head Exam: NORMAL INSPECTION - Eye Exam Eye Exam: Normal appearance, PERRL Pupil Exam: PERRL - Respiratory Exam Respiratory Exam: Clear to PA & Lateral, NORMAL BREATHING PATTERN - Cardiovascular Exam Cardiovascular Exam: REGULAR RHYTHM, +S1, +S2 - GI/Abdominal Exam GI & Abdominal Exam: Hypoactive Bowel Sounds, Soft - Neurological Exam Neurological exam: Altered - Skin Skin Exam: Dry, Normal Color Assessment/Plan (1) Anoxic encephalopathy Current Visit: Yes Status: Acute Comment: 09/04: cont to monitor, pt unresponsive to verbal commands 09/03: No interval change, cont to monitor 09/02: Continue to monitor. 09/01: Continue to monitor, unchanged status. 08/31: status unchanged, will continue to monitor 08/30: awake and alert, eyes open, 08/29:Pt is more alert, able to open eyes; however, can not respond to verbal commands. will continue to monitor 08/28: Pt more alert today, continues to be unresponsive to verbal stimuli 08/27 No interval change in pt's condition, will continue to monitor 08/26 Patient's status remains the same 08/25 No improvement or change in mental status. Pt not responsive to verbal commands 08/24 Pt not responsive to verbal stimuli, only painful, unable to follow commands, pt continues to have swelling, minimal improvement, will continue to monitor, continue with dietary recommendations 08/22 Spontaneous movement, eyes open. given one dose of Lasix for increased swelling in upper extremities. GT bolus adjusted to dietary recommendations. 08/21 Spontaneous movement, opened eyes during examination. Per wound care nurse , Sabrina, pt is having skin breakdown due to excessive diarrhea. Recommended nystatin powder and sensicare cream to be applied on affected area. Pt's laxatives were removed. Gastric tube feeding will be made into 4 boluses, at 8am , 12pm, 4pm, 8 pm, per dietary recommendations. C diff cultures ordered. (2) Chest congestion Current Visit: Yes Status: Acute Comment: Sputum culture (07/28/15) with Pseudomonas aeruginosa s/p treatment Dr. Armstrong on case-help appreciated patient afebrile (3) Transaminitis Current Visit: Yes Status: Acute Comment: ALT and AlK phos elevated Hep panel negative Continue to monitor LFTs (4) Thrombophlebitis of superficial veins of upper extremities Current Visit: Yes Status: Acute Comment: Venous doppler (07/19) prelim report - thrombosis of right cephalic vein (superficial) Shows Abnormality Lovenox 40mg SC daily Warm compresses to area 15 minutes, 3x a day f/u final venous doppler report (5) Edema of upper extremity Current Visit: Yes Status: Acute Comment: Venous doppler (07/19) - thrombosis of right cephalic vein (superficial) - please see official report Continue warm compresses Monitor (6) Respiratory failure Current Visit: Yes Status: Acute Comment: 08/30--> DW Pulm--> Not able to wean the vent at this time, cont supportive vent mx Dr. Salgado (pul) on case-help appreciated Patient on trach SIMV Monitor (7) STEMI (ST elevation myocardial infarction) Current Visit: Yes Status: Acute Comment: Continue Lisinopril 5mg PO daily Continue Plavix 75mg PO daily Continue ASA 325mg PO daily s/p stenting (8) Seizures Current Visit: Yes Status: Acute Comment: 09/02: Continue current management. 09/01: dilantin level 5.7, continue current management. 08/30--> repeat Dilantin level in am, cont meds, SZ precaution Continue dilantin 100mg via PEG TID Continue to monitor for seizure activity (9) Prophylactic measure Current Visit: Yes Status: Acute Comment: SCDs Plavix <Carlos A Yingn M - Last Filed: 09/04/15 16:32> Objective - Vital Signs/Intake and Output Vital Signs (last 24 hours): Vital Signs - 24 hr 09/03/15 09/04/15 09/04/15 21:44 06:00 11:45 Temperature 97.9 F 98.3 F Pulse Rate 86 87 87 Respiratory 18 20 Rate Blood Pressure 127/91 H 143/89 O2 Sat by Pulse 96 98 Oximetry 09/04/15 14:28 Temperature 98.2 F Pulse Rate 96 H Respiratory 20 Rate Blood Pressure 130/79 O2 Sat by Pulse 100 Oximetry Intake and Output (last 12 hours): Intake & Output 09/03/15 09/04/15 09/04/15 18:59 06:59 18:59 Intake Total 900 Output Total 525 1700 Balance -525 -800 Intake: Tube Feeding 700 Other 200 Output: Urine 525 1700 Urethral (Yoo) 525 1700 Other: # Bowel Movements 0 1 - Medications Medications: Current Medications Ascorbic Acid (Vitamin C 500 Mg Tab) 500 mg PEG BID [facility] Last Admin: 09/04/15 10:10 Dose: 500 mg Aspirin (Aspirin) 325 mg PO DAILY [facility] Last Admin: 09/04/15 10:11 Dose: 325 mg Clopidogrel Bisulfate (Plavix) 75 mg PO DAILY [facility] Last Admin: 09/04/15 10:11 Dose: 75 mg Lisinopril (Zestril) 5 mg PO DAILY [facility] Last Admin: 09/04/15 10:11 Dose: 5 mg Nystatin (Nystop Topical Powder) 1 applic TOP BID [facility] Last Admin: 09/04/15 10:11 Dose: 1 applic Petrolatum (Desitin Original) 0 gm TOP BID [facility] Last Admin: 09/04/15 10:11 Dose: 1 applic Phenytoin (Dilantin) 100 mg PEG TID [facility] Last Admin: 09/04/15 14:16 Dose: 100 mg Polyethylene Glycol (Miralax) 17 gm PEG BID [facility] Last Admin: 08/21/15 11:26 Dose: Not Given Zinc Sulfate (Zinc Sulfate 220 Mg Cap) 220 mg PEG DAILY [facility] Last Admin: 09/04/15 10:11 Dose: 220 mg - Labs Labs (last 24 hours): Laboratory Results - last 24 hr 09/04/15 08:11 WBC 13.8 H RBC 4.00 L Hgb 12.5 Hct 38.0 MCV 95.0 H MCH 31.2 H MCHC 32.9 L RDW 14.5 Plt Count 361 MPV 8.1 Neut % (Auto) 69.8 Lymph % (Auto) 10.6 L [place] % (Auto) 7.6 Eos % (Auto) 11.6 H Baso % (Auto) 0.4 Neut # 9.7 H Lymph # 1.5 [place] # 1.1 H Eos # 1.6 H Baso # 0.1 Sodium 141 Potassium 3.9 Chloride 101 Carbon Dioxide 32 H Anion Gap 12 BUN 30 H Creatinine 0.6 L Est GFR ( Amer) > 60 Est GFR (Non-Af Amer) > 60 Random Glucose 144 H Calcium 8.6 Phosphorus 4.1 Magnesium 2.2 Total Bilirubin 0.4 AST 48 ALT 107 H Alkaline Phosphatase 145 H Total Protein 7.7 Albumin 3.4 L Globulin 4.3 H Albumin/Globulin Ratio 0.8 L Attending/Attestation - Attestation I have personally seen and examined this patient.: Yes I have fully participated in the care of the patient.: Yes I have reviewed all pertinent clinical information: Yes Notes (Text): 09/04/15 16:32 Patient seen and examined at bedside with the resident No change in clinical condition Continue current management
[2015-09-05] MEDS: Phenytoin 100 mg/4 ml Oral Susp UD PEG SCH ×3 (09:34→17:18)
[2015-09-05] MEDS: Zinc Oxide Topical 30 gm Tube TOP SCH ×2 (09:35→17:18)
--- NOTE | 2015-09-05 10:02 | CP.PCM.PN ---
<Sandra Mercedes - Last Filed: 09/05/15 10:00> Subjective - Subjective Subjective: Pt seen and examined. Pt is on vent and only responsive to painful stimuli and therefore unable to obtain ROS. Review of Systems - Review of Systems Systems not reviewed;Unavailable: Altered Mental Status Objective - Vital Signs/Intake and Output Vital Signs (last 24 hours): Vital Signs - 24 hr 09/04/15 09/04/15 09/04/15 11:45 14:28 20:00 Temperature 98.2 F Pulse Rate 87 96 H 96 H Respiratory 20 Rate Blood Pressure 130/79 O2 Sat by Pulse 100 Oximetry 09/04/15 09/05/15 09/05/15 22:00 06:01 09:05 Temperature 97.9 F 98.3 F Pulse Rate 82 87 87 Respiratory 17 20 Rate Blood Pressure 137/88 115/77 O2 Sat by Pulse 99 100 Oximetry Intake and Output (last 12 hours): Intake & Output 09/04/15 09/05/15 09/05/15 18:59 06:59 18:59 Intake Total 1150 900 Output Total 500 Balance 1150 400 Weight 104 lb Intake: Tube Feeding 750 700 Other 400 200 Output: Urine 500 Urethral (Yoo) 500 Other: # Voids Urethral (Yoo) 400 # Bowel Movements 1 1 - Medications Medications: Current Medications Ascorbic Acid (Vitamin C 500 Mg Tab) 500 mg PEG BID [facility] Last Admin: 09/05/15 09:35 Dose: 500 mg Aspirin (Aspirin) 325 mg PO DAILY [facility] Last Admin: 09/05/15 09:35 Dose: 325 mg Clopidogrel Bisulfate (Plavix) 75 mg PO DAILY [facility] Last Admin: 09/05/15 09:35 Dose: 75 mg Lisinopril (Zestril) 5 mg PO DAILY [facility] Last Admin: 09/05/15 09:35 Dose: 5 mg Nystatin (Nystop Topical Powder) 1 applic TOP BID [facility] Last Admin: 09/05/15 09:35 Dose: 1 applic Petrolatum (Desitin Original) 0 gm TOP BID [facility] Last Admin: 09/05/15 09:35 Dose: 1 applic Phenytoin (Dilantin) 100 mg PEG TID [facility] Last Admin: 09/05/15 09:34 Dose: 100 mg Polyethylene Glycol (Miralax) 17 gm PEG BID [facility] Last Admin: 08/21/15 11:26 Dose: Not Given Zinc Sulfate (Zinc Sulfate 220 Mg Cap) 220 mg PEG DAILY [facility] Last Admin: 09/05/15 09:35 Dose: 220 mg - Constitutional Appears: Non-toxic, No Acute Distress - Head Exam Head Exam: NORMAL INSPECTION - Eye Exam Eye Exam: Normal appearance, PERRL Pupil Exam: PERRL - Respiratory Exam Respiratory Exam: Clear to PA & Lateral, NORMAL BREATHING PATTERN - Cardiovascular Exam Cardiovascular Exam: REGULAR RHYTHM, +S1, +S2 - GI/Abdominal Exam GI & Abdominal Exam: Hypoactive Bowel Sounds, Soft - Extremities Exam Extremities exam: pedal pulses present - Neurological Exam Neurological exam: Altered - Skin Skin Exam: Dry, Normal Color Assessment/Plan (1) Anoxic encephalopathy Assessment and plan: Current Visit: Yes Status: Acute Comment: 09/05: status unchanged, monitor 09/04: cont to monitor, pt unresponsive to verbal commands 09/03: No interval change, cont to monitor 09/02: Continue to monitor. 09/01: Continue to monitor, unchanged status. 08/31: status unchanged, will continue to monitor 08/30: awake and alert, eyes open, 08/29:Pt is more alert, able to open eyes; however, can not respond to verbal commands. will continue to monitor 08/28: Pt more alert today, continues to be unresponsive to verbal stimuli 08/27 No interval change in pt's condition, will continue to monitor 08/26 Patient's status remains the same 08/25 No improvement or change in mental status. Pt not responsive to verbal commands 08/24 Pt not responsive to verbal stimuli, only painful, unable to follow commands, pt continues to have swelling, minimal improvement, will continue to monitor, continue with dietary recommendations 08/22 Spontaneous movement, eyes open. given one dose of Lasix for increased swelling in upper extremities. GT bolus adjusted to dietary recommendations. 08/21 Spontaneous movement, opened eyes during examination. Per wound care nurse , Sabrina, pt is having skin breakdown due to excessive diarrhea. Recommended nystatin powder and sensicare cream to be applied on affected area. Pt's laxatives were removed. Gastric tube feeding will be made into 4 boluses, at 8am , 12pm, 4pm, 8 pm, per dietary recommendations. C diff cultures ordered. (2) Chest congestion Current Visit: Yes Status: Acute Comment: Sputum culture (07/28/15) with Pseudomonas aeruginosa s/p treatment Dr. Armstrong on case-help appreciated patient afebrile (3) Transaminitis Current Visit: Yes Status: Acute Comment: ALT and AlK phos elevated Hep panel negative Continue to monitor LFTs (4) Thrombophlebitis of superficial veins of upper extremities Current Visit: Yes Status: Acute Comment: Venous doppler (07/19) prelim report - thrombosis of right cephalic vein (superficial) Shows Abnormality Lovenox 40mg SC daily Warm compresses to area 15 minutes, 3x a day f/u final venous doppler report (5) Edema of upper extremity Current Visit: Yes Status: Acute Comment: Venous doppler (07/19) - thrombosis of right cephalic vein (superficial) - please see official report Continue warm compresses Monitor (6) Respiratory failure Current Visit: Yes Status: Acute Comment: 08/30--> DW Pulm--> Not able to wean the vent at this time, cont supportive vent mx Dr. Salgado (pul) on case-help appreciated Patient on trach SIMV Monitor (7) STEMI (ST elevation myocardial infarction) Current Visit: Yes Status: Acute Comment: Continue Lisinopril 5mg PO daily Continue Plavix 75mg PO daily Continue ASA 325mg PO daily s/p stenting (8) Seizures Current Visit: Yes Status: Acute Comment: 09/02: Continue current management. 09/01: dilantin level 5.7, continue current management. 08/30--> repeat Dilantin level in am, cont meds, SZ precaution Continue dilantin 100mg via PEG TID Continue to monitor for seizure activity (9) Prophylactic measure Current Visit: Yes Status: Acute Comment: SCDs Plavix <Donnell Ying M - Last Filed: 09/05/15 14:08> Objective - Vital Signs/Intake and Output Vital Signs (last 24 hours): Vital Signs - 24 hr 09/04/15 09/04/15 09/04/15 14:28 20:00 22:00 Temperature 98.2 F 97.9 F Pulse Rate 96 H 96 H 82 Respiratory 20 17 Rate Blood Pressure 130/79 137/88 O2 Sat by Pulse 100 99 Oximetry 09/05/15 09/05/15 09/05/15 06:01 09:05 13:41 Temperature 98.3 F 98.1 F Pulse Rate 87 87 91 H Respiratory 20 20 Rate Blood Pressure 115/77 123/83 O2 Sat by Pulse 100 100 Oximetry Intake and Output (last 12 hours): Intake & Output 09/04/15 09/05/15 09/05/15 18:59 06:59 18:59 Intake Total 1150 900 Output Total 500 375 Balance 1150 400 -375 Weight 104 lb Intake: Tube Feeding 750 700 Other 400 200 Output: Urine 500 375 Urethral (Yoo) 500 375 Other: # Voids Urethral (Yoo) 400 # Bowel Movements 1 1 1 - Medications Medications: Current Medications Ascorbic Acid (Vitamin C 500 Mg Tab) 500 mg PEG BID [facility] Last Admin: 09/05/15 09:35 Dose: 500 mg Aspirin (Aspirin) 325 mg PO DAILY [facility] Last Admin: 09/05/15 09:35 Dose: 325 mg Clopidogrel Bisulfate (Plavix) 75 mg PO DAILY [facility] Last Admin: 09/05/15 09:35 Dose: 75 mg Lisinopril (Zestril) 5 mg PO DAILY [facility] Last Admin: 09/05/15 09:35 Dose: 5 mg Nystatin (Nystop Topical Powder) 1 applic TOP BID [facility] Last Admin: 09/05/15 09:35 Dose: 1 applic Petrolatum (Desitin Original) 0 gm TOP BID [facility] Last Admin: 09/05/15 09:35 Dose: 1 applic Phenytoin (Dilantin) 100 mg PEG TID [facility] Last Admin: 09/05/15 09:34 Dose: 100 mg Polyethylene Glycol (Miralax) 17 gm PEG BID [facility] Last Admin: 08/21/15 11:26 Dose: Not Given Zinc Sulfate (Zinc Sulfate 220 Mg Cap) 220 mg PEG DAILY [facility] Last Admin: 09/05/15 09:35 Dose: 220 mg Attending/Attestation - Attestation I have personally seen and examined this patient.: Yes I have fully participated in the care of the patient.: Yes I have reviewed all pertinent clinical information: Yes Notes (Text): 09/05/15 14:08 Patient seen and examined at bedside with the resident. No change in clinical condition. Continue current management. Family to decide about goals of care.
[2015-09-06] MEDS: Zinc Oxide Topical 30 gm Tube TOP SCH ×2 (10:00→17:45)
--- NOTE | 2015-09-06 10:04 | CP.PCM.PN ---
<Sandra Mercedes - Last Filed: 09/06/15 10:01> Subjective - Subjective Subjective: Pt seen and examined. Pt is on vent and only responsive to painful stimuli. Pt is able to open eyes after painful stimulation. Pupils are equal and reactive to light. Unable to obtain ROS. Review of Systems - Review of Systems Systems not reviewed;Unavailable: Altered Mental Status Objective - Vital Signs/Intake and Output Vital Signs (last 24 hours): Vital Signs - 24 hr 09/05/15 09/05/15 09/06/15 13:41 22:08 05:27 Temperature 98.1 F 98.3 F 98.6 F Pulse Rate 91 H 86 86 Respiratory 20 18 20 Rate Blood Pressure 123/83 127/85 105/63 O2 Sat by Pulse 100 100 100 Oximetry Intake and Output (last 12 hours): Intake & Output 09/05/15 09/06/15 09/06/15 18:59 06:59 18:59 Output Total 375 625 Balance -375 -625 Weight 104 lb Output: Urine 375 625 Urethral (Yoo) 375 625 Other: # Bowel Movements 1 - Medications Medications: Current Medications Ascorbic Acid (Vitamin C 500 Mg Tab) 500 mg PEG BID [facility] Last Admin: 09/05/15 17:18 Dose: 500 mg Aspirin (Aspirin) 325 mg PO DAILY [facility] Last Admin: 09/05/15 09:35 Dose: 325 mg Clopidogrel Bisulfate (Plavix) 75 mg PO DAILY [facility] Last Admin: 09/05/15 09:35 Dose: 75 mg Lisinopril (Zestril) 5 mg PO DAILY [facility] Last Admin: 09/05/15 09:35 Dose: 5 mg Nystatin (Nystop Topical Powder) 1 applic TOP BID [facility] Last Admin: 09/05/15 17:18 Dose: 1 applic Petrolatum (Desitin Original) 0 gm TOP BID [facility] Last Admin: 09/05/15 17:18 Dose: 1 applic Phenytoin (Dilantin) 100 mg PEG TID [facility] Last Admin: 09/05/15 17:18 Dose: 100 mg Polyethylene Glycol (Miralax) 17 gm PEG BID [facility] Last Admin: 08/21/15 11:26 Dose: Not Given Zinc Sulfate (Zinc Sulfate 220 Mg Cap) 220 mg PEG DAILY [facility] Last Admin: 09/05/15 09:35 Dose: 220 mg - Constitutional Appears: Non-toxic, No Acute Distress - Head Exam Head Exam: NORMAL INSPECTION - Eye Exam Eye Exam: Normal appearance, PERRL Pupil Exam: PERRL - Respiratory Exam Respiratory Exam: Clear to PA & Lateral, NORMAL BREATHING PATTERN - Cardiovascular Exam Cardiovascular Exam: REGULAR RHYTHM, +S1, +S2 - GI/Abdominal Exam GI & Abdominal Exam: Hypoactive Bowel Sounds, Soft - Extremities Exam Extremities exam: pedal pulses present - Neurological Exam Neurological exam: Altered - Skin Skin Exam: Dry, Normal Color Assessment/Plan (1) Anoxic encephalopathy Assessment and plan: Current Visit: Yes Status: Acute Comment: 09/06: Pt is awake, but only responsive to painful stimuli. Will continue to monitor 09/05: status unchanged, monitor 09/04: cont to monitor, pt unresponsive to verbal commands 09/03: No interval change, cont to monitor 09/02: Continue to monitor. 09/01: Continue to monitor, unchanged status. 08/31: status unchanged, will continue to monitor 08/30: awake and alert, eyes open, 08/29:Pt is more alert, able to open eyes; however, can not respond to verbal commands. will continue to monitor 08/28: Pt more alert today, continues to be unresponsive to verbal stimuli 08/27 No interval change in pt's condition, will continue to monitor 08/26 Patient's status remains the same 08/25 No improvement or change in mental status. Pt not responsive to verbal commands 08/24 Pt not responsive to verbal stimuli, only painful, unable to follow commands, pt continues to have swelling, minimal improvement, will continue to monitor, continue with dietary recommendations 08/22 Spontaneous movement, eyes open. given one dose of Lasix for increased swelling in upper extremities. GT bolus adjusted to dietary recommendations. 08/21 Spontaneous movement, opened eyes during examination. Per wound care nurse , Sabrina, pt is having skin breakdown due to excessive diarrhea. Recommended nystatin powder and sensicare cream to be applied on affected area. Pt's laxatives were removed. Gastric tube feeding will be made into 4 boluses, at 8am , 12pm, 4pm, 8 pm, per dietary recommendations. C diff cultures ordered. (2) Chest congestion Current Visit: Yes Status: Acute Comment: Sputum culture (07/28/15) with Pseudomonas aeruginosa s/p treatment Dr. Armstrong on case-help appreciated patient afebrile (3) Transaminitis Current Visit: Yes Status: Acute Comment: ALT and AlK phos elevated Hep panel negative Continue to monitor LFTs (4) Thrombophlebitis of superficial veins of upper extremities Current Visit: Yes Status: Acute Comment: Venous doppler (07/19) prelim report - thrombosis of right cephalic vein (superficial) Shows Abnormality Lovenox 40mg SC daily Warm compresses to area 15 minutes, 3x a day f/u final venous doppler report (5) Edema of upper extremity Current Visit: Yes Status: Acute Comment: Venous doppler (07/19) - thrombosis of right cephalic vein (superficial) - please see official report Continue warm compresses Monitor (6) Respiratory failure Current Visit: Yes Status: Acute Comment: 08/30--> DW Pulm--> Not able to wean the vent at this time, cont supportive vent mx Dr. Salgado (pul) on case-help appreciated Patient on trach SIMV Monitor (7) STEMI (ST elevation myocardial infarction) Current Visit: Yes Status: Acute Comment: Continue Lisinopril 5mg PO daily Continue Plavix 75mg PO daily Continue ASA 325mg PO daily s/p stenting (8) Seizures Current Visit: Yes Status: Acute Comment: 09/02: Continue current management. 09/01: dilantin level 5.7, continue current management. 08/30--> repeat Dilantin level in am, cont meds, SZ precaution Continue dilantin 100mg via PEG TID Continue to monitor for seizure activity (9) Prophylactic measure Current Visit: Yes Status: Acute Comment: SCDs Plavix <Donnell Ying M - Last Filed: 09/06/15 16:16> Objective - Vital Signs/Intake and Output Vital Signs (last 24 hours): Vital Signs - 24 hr 09/05/15 09/06/15 09/06/15 22:08 05:27 11:01 Temperature 98.3 F 98.6 F Pulse Rate 86 86 Respiratory 18 20 Rate Blood Pressure 127/85 105/63 119/76 O2 Sat by Pulse 100 100 Oximetry 09/06/15 13:08 Temperature 99.2 F Pulse Rate 83 Respiratory 20 Rate Blood Pressure 133/86 O2 Sat by Pulse 100 Oximetry Intake and Output (last 12 hours): Intake & Output 09/05/15 09/06/15 09/06/15 18:59 06:59 18:59 Output Total 375 625 800 Balance -375 -329 -800 Weight 104 lb Output: Urine 375 904 800 Urethral (Yoo) 816 974 800 Other: # Bowel Movements 1 - Medications Medications: Current Medications Ascorbic Acid (Vitamin C 500 Mg Tab) 500 mg PEG BID [facility] Last Admin: 09/06/15 10:49 Dose: 500 mg Aspirin (Aspirin) 325 mg PO DAILY [facility] Last Admin: 09/06/15 10:49 Dose: 325 mg Clopidogrel Bisulfate (Plavix) 75 mg PO DAILY [facility] Last Admin: 09/06/15 10:49 Dose: 75 mg Lisinopril (Zestril) 5 mg PO DAILY [facility] Last Admin: 09/06/15 10:49 Dose: 5 mg Nystatin (Nystop Topical Powder) 1 applic TOP BID [facility] Last Admin: 09/06/15 15:00 Dose: 1 applic Petrolatum (Desitin Original) 0 gm TOP BID [facility] Last Admin: 09/06/15 10:00 Dose: 1 applic Phenytoin (Dilantin) 100 mg PEG TID [facility] Last Admin: 09/06/15 15:22 Dose: 100 mg Polyethylene Glycol (Miralax) 17 gm PEG BID [facility] Last Admin: 08/21/15 11:26 Dose: Not Given Zinc Sulfate (Zinc Sulfate 220 Mg Cap) 220 mg PEG DAILY [facility] Last Admin: 09/06/15 10:49 Dose: 220 mg Attending/Attestation - Attestation I have personally seen and examined this patient.: Yes I have fully participated in the care of the patient.: Yes I have reviewed all pertinent clinical information: Yes Notes (Text): 09/06/15 16:16 Patient seen and examined at bedside with the resident. No change in clinical condition. Continue current management.
[2015-09-06] MEDS: Phenytoin 100 mg/4 ml Oral Susp UD PEG SCH ×3 (10:50→17:41)
--- NOTE | 2015-09-07 09:24 | CP.PCM.PN ---
<Nely Pate - Last Filed: 09/07/15 09:21> Subjective - Subjective Subjective: Patient seen and examined. No acute changes in medical condition at this time. Patient asleep and unresponsive to verbal commands. ROS unable to be obtained. Review of Systems - Review of Systems Systems not reviewed;Unavailable: Acuity of Condition Objective - Vital Signs/Intake and Output Vital Signs (last 24 hours): Vital Signs - 24 hr 09/06/15 09/06/15 09/06/15 11:01 13:08 20:34 Temperature 99.2 F 98.5 F Pulse Rate 83 80 Respiratory 20 15 Rate Blood Pressure 119/76 133/86 129/86 O2 Sat by Pulse 100 100 Oximetry 09/07/15 05:00 Temperature 98.0 F Pulse Rate 80 Respiratory 18 Rate Blood Pressure 123/81 O2 Sat by Pulse 100 Oximetry Intake and Output (last 12 hours): Intake & Output 09/06/15 09/07/15 09/07/15 18:59 06:59 18:59 Intake Total 2000 Output Total 800 1150 Balance -800 850 Weight 107 lb 11.2 oz Intake: Tube Feeding 1600 Albumin 400 Output: Urine 800 1150 Urethral (Yoo) 800 1150 Other: # Bowel Movements 2 - Medications Medications: Current Medications Ascorbic Acid (Vitamin C 500 Mg Tab) 500 mg PEG BID [facility] Last Admin: 09/06/15 17:41 Dose: 500 mg Aspirin (Aspirin) 325 mg PO DAILY [facility] Last Admin: 09/06/15 10:49 Dose: 325 mg Clopidogrel Bisulfate (Plavix) 75 mg PO DAILY [facility] Last Admin: 09/06/15 10:49 Dose: 75 mg Lisinopril (Zestril) 5 mg PO DAILY [facility] Last Admin: 09/06/15 10:49 Dose: 5 mg Nystatin (Nystop Topical Powder) 1 applic TOP BID [facility] Last Admin: 09/06/15 17:45 Dose: 1 applic Petrolatum (Desitin Original) 0 gm TOP BID [facility] Last Admin: 09/06/15 17:45 Dose: 1 applic Phenytoin (Dilantin) 100 mg PEG TID [facility] Last Admin: 09/06/15 17:41 Dose: 100 mg Polyethylene Glycol (Miralax) 17 gm PEG BID [facility] Last Admin: 08/21/15 11:26 Dose: Not Given Zinc Sulfate (Zinc Sulfate 220 Mg Cap) 220 mg PEG DAILY [facility] Last Admin: 09/06/15 10:49 Dose: 220 mg - Constitutional Appears: No Acute Distress, Cachectic, Chronically Ill - Head Exam Head Exam: ATRAUMATIC, NORMOCEPHALIC - Eye Exam Eye Exam: EOMI, Normal appearance Pupil Exam: NORMAL ACCOMODATION - ENT Exam ENT Exam: Mucous Membranes Moist - Respiratory Exam Respiratory Exam: Clear to PA & Lateral, NORMAL BREATHING PATTERN. absent: Rales, Rhonchi, Wheezes, Respiratory Distress - Cardiovascular Exam Cardiovascular Exam: REGULAR RHYTHM, +S1, +S2. absent: Diastolic murmur, Systolic Murmur - GI/Abdominal Exam GI & Abdominal Exam: Diminished Bowel Sounds, Soft. absent: Distended, Firm - Extremities Exam Extremities exam: pedal pulses present. absent: pedal edema - Neurological Exam Neurological exam: absent: Alert - Skin Skin Exam: Dry, Normal Color, Warm Assessment/Plan (1) Anoxic encephalopathy Current Visit: Yes Status: Acute Comment: 09/07: Patient asleep, unable to arouse. No acute changes in condition. 09/06: Pt is awake, but only responsive to painful stimuli. Will continue to monitor 09/05: status unchanged, monitor 09/04: cont to monitor, pt unresponsive to verbal commands 09/03: No interval change, cont to monitor 09/02: Continue to monitor. 09/01: Continue to monitor, unchanged status. 08/31: status unchanged, will continue to monitor 08/30: awake and alert, eyes open, 08/29:Pt is more alert, able to open eyes; however, can not respond to verbal commands. will continue to monitor 08/28: Pt more alert today, continues to be unresponsive to verbal stimuli 08/27 No interval change in pt's condition, will continue to monitor 08/26 Patient's status remains the same 08/25 No improvement or change in mental status. Pt not responsive to verbal commands 08/24 Pt not responsive to verbal stimuli, only painful, unable to follow commands, pt continues to have swelling, minimal improvement, will continue to monitor, continue with dietary recommendations 08/22 Spontaneous movement, eyes open. given one dose of Lasix for increased swelling in upper extremities. GT bolus adjusted to dietary recommendations. 08/21 Spontaneous movement, opened eyes during examination. Per wound care nurse , Sabrina, pt is having skin breakdown due to excessive diarrhea. Recommended nystatin powder and sensicare cream to be applied on affected area. Pt's laxatives were removed. Gastric tube feeding will be made into 4 boluses, at 8am , 12pm, 4pm, 8 pm, per dietary recommendations. C diff cultures ordered. (2) Chest congestion Current Visit: Yes Status: Acute Comment: 09/07: lungs clear to auscultation Sputum culture (07/28/15) with Pseudomonas aeruginosa s/p treatment Dr. Armstrong on case-help appreciated patient afebrile (3) Urinary tract infection Current Visit: Yes Status: Acute Comment: Urine culture 07/21 showed Beta hemolytic Strep Group B sensitive to ampicillin ampicillin 500mg PEG TID started 07/23 and then discontinued. ID consulted - Dr. Armstrong - help very much appreciated. Leukocytosis resolved and patient afebrile. Monitor patient. (4) Transaminitis Current Visit: Yes Status: Acute Comment: ALT and AlK phos elevated Hep panel negative Continue to monitor LFTs (5) Respiratory failure Current Visit: Yes Status: Acute Comment: Patient on trach 08/30--> DW Pulm--> Not able to wean the vent at this time, cont supportive vent mx Dr. Salgado (pul) on case-help appreciated Monitor (6) CAD (coronary artery disease) Current Visit: Yes Status: Acute Comment: Continue Lisinopril 5mg PO daily Continue ASA 325mg PO daily Continue Plavix 75mg PO daily (7) STEMI (ST elevation myocardial infarction) Current Visit: Yes Status: Acute Comment: Continue Lisinopril 5mg PO daily Continue Plavix 75mg PO daily Continue ASA 325mg PO daily s/p stenting (8) Seizures Current Visit: Yes Status: Acute Comment: Continue current management. 09/01: dilantin level 5.7, continue current management. 08/30--> repeat Dilantin level in am, cont meds, SZ precaution Continue dilantin 100mg via PEG TID Continue to monitor for seizure activity (9) Leukocytosis Current Visit: Yes Status: Acute Comment: resolved CXR - no active disease Monitor temperature Afebrile IV Cefepime 1gm q12h started 07/21 Monitor (10) Prophylactic measure Current Visit: Yes Status: Acute Comment: SCDs Plavix <Donnell Ying M - Last Filed: 09/07/15 15:05> Objective - Vital Signs/Intake and Output Vital Signs (last 24 hours): Vital Signs - 24 hr 09/06/15 09/07/15 09/07/15 20:34 05:00 10:54 Temperature 98.5 F 98.0 F Pulse Rate 80 80 Respiratory 15 18 Rate Blood Pressure 129/86 123/81 110/76 O2 Sat by Pulse 100 100 Oximetry 09/07/15 09/07/15 14:35 14:40 Temperature 98.7 F Pulse Rate 101 H Respiratory 20 Rate Blood Pressure 145/88 145/88 O2 Sat by Pulse 100 Oximetry Intake and Output (last 12 hours): Intake & Output 09/06/15 09/07/15 09/07/15 18:59 06:59 18:59 Intake Total 2000 Output Total 800 1150 Balance -800 850 Weight 107 lb 11.2 oz Intake: Tube Feeding 1600 Albumin 400 Output: Urine 800 1150 Urethral (Yoo) 800 1150 Other: # Bowel Movements 2 - Medications Medications: Current Medications Ascorbic Acid (Vitamin C 500 Mg Tab) 500 mg PEG BID [facility] Last Admin: 09/07/15 10:45 Dose: 500 mg Aspirin (Aspirin) 325 mg PO DAILY [facility] Last Admin: 09/07/15 10:45 Dose: 325 mg Clopidogrel Bisulfate (Plavix) 75 mg PO DAILY [facility] Last Admin: 09/07/15 10:45 Dose: 75 mg Lisinopril (Zestril) 5 mg PO DAILY [facility] Last Admin: 09/07/15 10:45 Dose: 5 mg Nystatin (Nystop Topical Powder) 1 applic TOP BID [facility] Last Admin: 09/07/15 10:46 Dose: 1 applic Petrolatum (Desitin Original) 0 gm TOP BID [facility] Last Admin: 09/07/15 10:46 Dose: 1 applic Phenytoin (Dilantin) 100 mg PEG TID [facility] Last Admin: 09/07/15 10:46 Dose: 100 mg Polyethylene Glycol (Miralax) 17 gm PEG BID [facility] Last Admin: 08/21/15 11:26 Dose: Not Given Zinc Sulfate (Zinc Sulfate 220 Mg Cap) 220 mg PEG DAILY [facility] Last Admin: 09/07/15 10:45 Dose: 220 mg Attending/Attestation - Attestation I have personally seen and examined this patient.: Yes I have fully participated in the care of the patient.: Yes I have reviewed all pertinent clinical information: Yes Notes (Text): 09/07/15 15:05 Patient seen and examined at bedside. On no change in clinical condition. Upper extremities are edematous. Lead administer 1 dose of Lasix today.
[2015-09-07] MEDS: Zinc Oxide Topical 30 gm Tube TOP SCH ×2 (10:46→17:47)
[2015-09-07] MEDS: Phenytoin 100 mg/4 ml Oral Susp UD PEG SCH ×3 (10:46→17:46)
--- NOTE | 2015-09-08 04:29 | CP.PCM.PN ---
<Mariella Wagner - Last Filed: 09/08/15 08:26> Subjective - Subjective Subjective: Medicine progress note: Pt seen and examined. No acute events overnight. Pt is on ventilator and nonresponsive to verbal stimuli, unable to obtain ROS. Not responsive to touch stimuli. Will continue to monitor. Review of Systems - Review of Systems Systems not reviewed;Unavailable: Unstable Vital Signs Objective - Vital Signs/Intake and Output Vital Signs (last 24 hours): Vital Signs - 24 hr 09/07/15 09/07/15 09/07/15 05:00 10:54 14:35 Temperature 98.0 F Pulse Rate 80 Respiratory 18 Rate Blood Pressure 123/81 110/76 145/88 O2 Sat by Pulse 100 Oximetry 09/07/15 09/07/15 14:40 21:44 Temperature 98.7 F 98.5 F Pulse Rate 101 H 98 H Respiratory 20 20 Rate Blood Pressure 145/88 119/77 O2 Sat by Pulse 100 100 Oximetry Intake and Output (last 12 hours): Intake & Output 09/07/15 09/07/15 09/08/15 06:59 18:59 06:59 Intake Total 2000 1000 Output Total 1150 2400 Balance 850 -1400 Weight 107 lb 11.2 oz Intake: Tube Feeding 1600 750 Albumin 400 Other 250 Output: Urine 1150 2400 Urethral (Yoo) 1150 2400 Other: # Bowel Movements 2 2 - Medications Medications: Current Medications Ascorbic Acid (Vitamin C 500 Mg Tab) 500 mg PEG BID [facility] Last Admin: 09/07/15 17:45 Dose: 500 mg Aspirin (Aspirin) 325 mg PO DAILY [facility] Last Admin: 09/07/15 10:45 Dose: 325 mg Clopidogrel Bisulfate (Plavix) 75 mg PO DAILY [facility] Last Admin: 09/07/15 10:45 Dose: 75 mg Lisinopril (Zestril) 5 mg PO DAILY [facility] Last Admin: 09/07/15 10:45 Dose: 5 mg Nystatin (Nystop Topical Powder) 1 applic TOP BID [facility] Last Admin: 09/07/15 17:46 Dose: 1 applic Petrolatum (Desitin Original) 0 gm TOP BID [facility] Last Admin: 09/07/15 17:47 Dose: 1 applic Phenytoin (Dilantin) 100 mg PEG TID [facility] Last Admin: 09/07/15 17:46 Dose: 100 mg Polyethylene Glycol (Miralax) 17 gm PEG BID [facility] Last Admin: 08/21/15 11:26 Dose: Not Given Zinc Sulfate (Zinc Sulfate 220 Mg Cap) 220 mg PEG DAILY [facility] Last Admin: 09/07/15 10:45 Dose: 220 mg - Head Exam Head Exam: NORMOCEPHALIC - Eye Exam Eye Exam: Normal appearance, PERRL Pupil Exam: PERRL - Respiratory Exam Respiratory Exam: Clear to PA & Lateral. absent: Rales, Rhonchi, Wheezes - Cardiovascular Exam Cardiovascular Exam: REGULAR RHYTHM, +S1, +S2 - GI/Abdominal Exam GI & Abdominal Exam: Normal Bowel Sounds, Soft. absent: Distended - Neurological Exam Neurological exam: Altered. absent: Alert - Skin Skin Exam: Dry, Warm Assessment/Plan (1) Anoxic encephalopathy Current Visit: Yes Status: Acute Comment: 09/08: Patient asleep and not responsive to verbal stimuli. NAD. Will continue to monitor. 09/07: Patient asleep, unable to arouse. No acute changes in condition. 09/06: Pt is awake, but only responsive to painful stimuli. Will continue to monitor 09/05: status unchanged, monitor 09/04: cont to monitor, pt unresponsive to verbal commands 09/03: No interval change, cont to monitor 09/02: Continue to monitor. 09/01: Continue to monitor, unchanged status. 08/31: status unchanged, will continue to monitor 08/30: awake and alert, eyes open, 08/29:Pt is more alert, able to open eyes; however, can not respond to verbal commands. will continue to monitor 08/28: Pt more alert today, continues to be unresponsive to verbal stimuli 08/27 No interval change in pt's condition, will continue to monitor 08/26 Patient's status remains the same 08/25 No improvement or change in mental status. Pt not responsive to verbal commands 08/24 Pt not responsive to verbal stimuli, only painful, unable to follow commands, pt continues to have swelling, minimal improvement, will continue to monitor, continue with dietary recommendations 08/22 Spontaneous movement, eyes open. given one dose of Lasix for increased swelling in upper extremities. GT bolus adjusted to dietary recommendations. 08/21 Spontaneous movement, opened eyes during examination. Per wound care nurse , Sabrina, pt is having skin breakdown due to excessive diarrhea. Recommended nystatin powder and sensicare cream to be applied on affected area. Pt's laxatives were removed. Gastric tube feeding will be made into 4 boluses, at 8am , 12pm, 4pm, 8 pm, per dietary recommendations. C diff cultures ordered. (2) Chest congestion Current Visit: Yes Status: Acute Comment: 09/08: Not using accesory muscles. Afebrile. Sputum culture (07/28/15) with Pseudomonas aeruginosa s/p treatment Dr. Armstrong on case-following. (3) Transaminitis Current Visit: Yes Status: Acute Comment: AST 61, ALT 135 and AlK phos 128. Hep panel negative Continue to monitor LFTs (4) Edema of upper extremity Current Visit: Yes Status: Acute Comment: Venous doppler (07/19) - thrombosis of right cephalic vein (superficial) - please see official report Continue warm compresses Monitor (5) Respiratory failure Current Visit: Yes Status: Acute Comment: Dr. Salgado (pulm) on case-help appreciated Patient on trach SIMV Monitor (6) STEMI (ST elevation myocardial infarction) Current Visit: Yes Status: Acute Comment: s/p stenting Continue Lisinopril 5mg PO daily Continue Plavix 75mg PO daily Continue ASA 325mg PO daily (7) Seizures Current Visit: Yes Status: Acute Comment: 09/08:Continue current management. 09/01: dilantin level 5.7, continue current management. 08/30--> repeat Dilantin level in am, cont meds, SZ precaution Continue dilantin 100mg via PEG TID Continue to monitor for seizure activity (8) Prophylactic measure Current Visit: Yes Status: Acute Comment: Plavix 75 mg PO daily [facility] <Donnell Ying - Last Filed: 09/08/15 15:31> Objective - Vital Signs/Intake and Output Vital Signs (last 24 hours): Vital Signs - 24 hr 09/07/15 09/08/15 09/08/15 21:44 05:00 08:34 Temperature 98.5 F 98.4 F Pulse Rate 98 H 86 86 Respiratory 20 18 Rate Blood Pressure 119/77 128/84 O2 Sat by Pulse 100 96 Oximetry 09/08/15 14:01 Temperature 98.7 F Pulse Rate 102 H Respiratory 20 Rate Blood Pressure 150/80 O2 Sat by Pulse 97 Oximetry Intake and Output (last 12 hours): Intake & Output 09/07/15 09/08/15 09/08/15 18:59 06:59 18:59 Intake Total 1700 Output Total 2650 Balance -950 Weight 103 lb Intake: Tube Feeding 1450 Other 250 Output: Urine 2650 Urethral (Yoo) 2650 Other: # Bowel Movements 2 - Medications Medications: Current Medications Ascorbic Acid (Vitamin C 500 Mg Tab) 500 mg PEG BID [facility] Last Admin: 09/08/15 09:36 Dose: 500 mg Aspirin (Aspirin) 325 mg PO DAILY [facility] Last Admin: 09/08/15 09:36 Dose: 325 mg Clopidogrel Bisulfate (Plavix) 75 mg PO DAILY [facility] Last Admin: 09/08/15 09:36 Dose: 75 mg Lisinopril (Zestril) 5 mg PO DAILY [facility] Last Admin: 09/08/15 09:36 Dose: 5 mg Nystatin (Nystop Topical Powder) 1 applic TOP BID [facility] Last Admin: 09/08/15 09:37 Dose: 1 applic Petrolatum (Desitin Original) 0 gm TOP BID [facility] Last Admin: 09/08/15 09:37 Dose: 1 applic Phenytoin (Dilantin) 100 mg PEG TID [facility] Last Admin: 09/08/15 13:11 Dose: 100 mg Polyethylene Glycol (Miralax) 17 gm PEG BID [facility] Last Admin: 08/21/15 11:26 Dose: Not Given Zinc Sulfate (Zinc Sulfate 220 Mg Cap) 220 mg PEG DAILY [facility] Last Admin: 09/08/15 09:37 Dose: 220 mg - Labs Labs (last 24 hours): Laboratory Results - last 24 hr 09/08/15 09/08/15 07:13 07:15 WBC 12.3 H RBC 3.74 L Hgb 11.7 L Hct 35.7 MCV 95.3 H MCH 31.2 H MCHC 32.8 L RDW 15.1 H Plt Count 336 MPV 8.2 Sodium 139 Potassium 4.2 Chloride 100 Carbon Dioxide 31 H Anion Gap 12 BUN 23 H Creatinine 0.5 L Est GFR ( Amer) > 60 Est GFR (Non-Af Amer) > 60 Random Glucose 116 H Calcium 8.6 Phosphorus 4.2 Magnesium 2.2 Total Bilirubin 0.5 AST 61 H D ALT 135 H D Alkaline Phosphatase 128 H Total Protein 7.3 Albumin 3.2 L Globulin 4.1 H Albumin/Globulin Ratio 0.8 L Attending/Attestation - Attestation I have personally seen and examined this patient.: Yes I have fully participated in the care of the patient.: Yes I have reviewed all pertinent clinical information: Yes Notes (Text): 09/08/15 15:31 Patient seen and examined at bedside with the resident. No change in clinical condition. Continue current management.
[2015-09-08 07:43] LABS: HEMOGLOBIN 11.7 g/dL (12.0-18.0); MEAN CELL VOLUME 95.3 fL (80.0-94.0); MEAN CORPUSCULAR HEMOGLOBIN 31.2 pg (27.0-31.0); MEAN CORPUSCULAR HGB CONC 32.8 g/dL (33.0-37.0); MEAN PLATELET VOLUME 8.2 fL (7.2-11.7); RBC 3.74 Mil/uL (4.40-5.90); RED CELL DISTRIBUTION WIDTH 15.1 % (11.5-14.5); WHITE BLOOD COUNT 12.3 K/uL (4.8-10.8)
[2015-09-08 07:57] LABS: ALBUMIN 3.2 g/dL (3.5-5.0)
[2015-09-08 07:59] LABS: ALB/GLOB RATIO 0.8 (1.0-2.1); AST/SGOT 61 U/L (17-59); GFR NON-AFRICAN AMERICAN > 60
[2015-09-08 08:00] LABS: ALT/SGPT 135 U/L (21-72); BLOOD UREA NITROGEN 23 mg/dL (9-20); CALCIUM 8.6 mg/dL (8.4-10.2)
[2015-09-08] MEDS: Phenytoin 100 mg/4 ml Oral Susp UD PEG SCH ×3 (09:36→17:28)
[2015-09-08] MEDS: Zinc Oxide Topical 30 gm Tube TOP SCH ×2 (09:37→17:28)
--- NOTE | 2015-09-09 00:33 | CP.PCM.PN ---
<Mariella Wagner - Last Filed: 09/09/15 00:31> Subjective - Subjective Subjective: Medicine Progress note: Patient seen and examined at bedside. Patient awake and in no acute distress. Patient not responding to verbal or tactile stimuli. Unchanged from baseline. Trach tube in place and patient is on peg tube feeds 10pm-8am. No acute events overnight. Review of Systems - Review of Systems Systems not reviewed;Unavailable: Altered Mental Status Objective - Vital Signs/Intake and Output Vital Signs (last 24 hours): Vital Signs - 24 hr 09/08/15 09/08/15 09/08/15 05:00 08:34 14:01 Temperature 98.4 F 98.7 F Pulse Rate 86 86 102 H Respiratory 18 20 Rate Blood Pressure 128/84 150/80 O2 Sat by Pulse 96 97 Oximetry 09/08/15 21:21 Temperature 98.8 F Pulse Rate 84 Respiratory 18 Rate Blood Pressure 108/76 O2 Sat by Pulse 99 Oximetry Intake and Output (last 12 hours): Intake & Output 09/08/15 09/08/15 09/09/15 06:59 18:59 06:59 Intake Total 1700 1120 Output Total 2650 600 850 Balance -950 520 -850 Weight 103 lb Intake: Tube Feeding 1450 720 Other 250 400 Output: Urine 2650 600 850 Urethral (Yoo) 2650 600 850 Other: # Bowel Movements 2 0 3 - Medications Medications: Current Medications Ascorbic Acid (Vitamin C 500 Mg Tab) 500 mg PEG BID [facility] Last Admin: 09/08/15 17:28 Dose: 500 mg Aspirin (Aspirin) 325 mg PO DAILY [facility] Last Admin: 09/08/15 09:36 Dose: 325 mg Clopidogrel Bisulfate (Plavix) 75 mg PO DAILY [facility] Last Admin: 09/08/15 09:36 Dose: 75 mg Lisinopril (Zestril) 5 mg PO DAILY [facility] Last Admin: 09/08/15 09:36 Dose: 5 mg Nystatin (Nystop Topical Powder) 1 applic TOP BID [facility] Last Admin: 09/08/15 17:29 Dose: 1 applic Petrolatum (Desitin Original) 0 gm TOP BID [facility] Last Admin: 09/08/15 17:28 Dose: 1 applic Phenytoin (Dilantin) 100 mg PEG TID [facility] Last Admin: 09/08/15 17:28 Dose: 100 mg Polyethylene Glycol (Miralax) 17 gm PEG BID [facility] Last Admin: 08/21/15 11:26 Dose: Not Given Zinc Sulfate (Zinc Sulfate 220 Mg Cap) 220 mg PEG DAILY [facility] Last Admin: 09/08/15 09:37 Dose: 220 mg - Labs Labs (last 24 hours): Laboratory Results - last 24 hr 09/08/15 09/08/15 07:13 07:15 WBC 12.3 H RBC 3.74 L Hgb 11.7 L Hct 35.7 MCV 95.3 H MCH 31.2 H MCHC 32.8 L RDW 15.1 H Plt Count 336 MPV 8.2 Sodium 139 Potassium 4.2 Chloride 100 Carbon Dioxide 31 H Anion Gap 12 BUN 23 H Creatinine 0.5 L Est GFR ( Amer) > 60 Est GFR (Non-Af Amer) > 60 Random Glucose 116 H Calcium 8.6 Phosphorus 4.2 Magnesium 2.2 Total Bilirubin 0.5 AST 61 H D ALT 135 H D Alkaline Phosphatase 128 H Total Protein 7.3 Albumin 3.2 L Globulin 4.1 H Albumin/Globulin Ratio 0.8 L - Constitutional Appears: No Acute Distress - Head Exam Head Exam: NORMAL INSPECTION, NORMOCEPHALIC - Eye Exam Eye Exam: Normal appearance, PERRL. absent: Conjunctival injection Pupil Exam: PERRL - ENT Exam ENT Exam: Mucous Membranes Moist - Respiratory Exam Respiratory Exam: Clear to PA & Lateral. absent: Rales, Rhonchi, Wheezes - Cardiovascular Exam Cardiovascular Exam: REGULAR RHYTHM, +S1, +S2 - Extremities Exam Extremities exam: pedal pulses present. absent: pedal edema - Neurological Exam Neurological exam: Altered. absent: Alert Assessment/Plan (1) Anoxic encephalopathy Current Visit: Yes Status: Acute Comment: 09/09: Patient awake. No acute changes. PEG feeds 10pm-8am. 09/08: Patient asleep and not responsive to verbal stimuli. NAD. Will continue to monitor. 09/07: Patient asleep, unable to arouse. No acute changes in condition. 09/06: Pt is awake, but only responsive to painful stimuli. Will continue to monitor 09/05: status unchanged, monitor 09/04: cont to monitor, pt unresponsive to verbal commands 09/03: No interval change, cont to monitor 09/02: Continue to monitor. 09/01: Continue to monitor, unchanged status. 08/31: status unchanged, will continue to monitor 08/30: awake and alert, eyes open, 08/29:Pt is more alert, able to open eyes; however, can not respond to verbal commands. will continue to monitor 08/28: Pt more alert today, continues to be unresponsive to verbal stimuli 08/27 No interval change in pt's condition, will continue to monitor 08/26 Patient's status remains the same 08/25 No improvement or change in mental status. Pt not responsive to verbal commands 08/24 Pt not responsive to verbal stimuli, only painful, unable to follow commands, pt continues to have swelling, minimal improvement, will continue to monitor, continue with dietary recommendations 08/22 Spontaneous movement, eyes open. given one dose of Lasix for increased swelling in upper extremities. GT bolus adjusted to dietary recommendations. 08/21 Spontaneous movement, opened eyes during examination. Per wound care nurse , Sabrina, pt is having skin breakdown due to excessive diarrhea. Recommended nystatin powder and sensicare cream to be applied on affected area. Pt's laxatives were removed. Gastric tube feeding will be made into 4 boluses, at 8am , 12pm, 4pm, 8 pm, per dietary recommendations. C diff cultures ordered. (2) Chest congestion Current Visit: Yes Status: Acute Comment: 09/09: No acute distress. Afebrile. 09/08: Not using accesory muscles. Afebrile. Sputum culture (07/28/15) with Pseudomonas aeruginosa s/p treatment Dr. Armstrong on case-following. (3) Transaminitis Current Visit: Yes Status: Acute Comment: AST 61, ALT 135 and AlK phos 128. Recheck Q4days. Hep panel negative Continue to monitor LFTs (4) Edema of upper extremity Current Visit: Yes Status: Acute Comment: Venous doppler (07/19) - thrombosis of right cephalic vein (superficial) - please see official report Continue warm compresses Monitor (5) Respiratory failure Current Visit: Yes Status: Acute Comment: Dr. Salgado (pulm) on case-help appreciated Cont patient on trach SIMV. Unable to wean. Monitor (6) STEMI (ST elevation myocardial infarction) Current Visit: Yes Status: Acute Comment: s/p stenting Continue Lisinopril 5mg PO daily Continue Plavix 75mg PO daily Continue ASA 325mg PO daily (7) Seizures Current Visit: Yes Status: Acute Comment: 09/09:Continue current management. 09/01: dilantin level 5.7, continue current management. 08/30--> repeat Dilantin level in am, cont meds, SZ precaution Continue dilantin 100mg via PEG TID Continue to monitor for seizure activity (8) Prophylactic measure Current Visit: Yes Status: Acute Comment: Plavix 75 mg PO daily [facility] <Donnell Ying M - Last Filed: 09/09/15 15:28> Objective - Vital Signs/Intake and Output Vital Signs (last 24 hours): Vital Signs - 24 hr 09/08/15 09/09/15 09/09/15 21:21 05:59 09:31 Temperature 98.8 F 97.8 F Pulse Rate 84 99 H 99 H Respiratory 18 16 Rate Blood Pressure 108/76 130/87 O2 Sat by Pulse 99 100 Oximetry 09/09/15 13:53 Temperature 98.5 F Pulse Rate 98 H Respiratory 20 Rate Blood Pressure 99/66 L O2 Sat by Pulse 100 Oximetry Intake and Output (last 12 hours): Intake & Output 09/08/15 09/09/15 09/09/15 18:59 06:59 18:59 Intake Total 1120 Output Total 600 850 Balance 520 -850 Intake: Tube Feeding 720 Other 400 Output: Urine 600 850 Urethral (Yoo) 600 850 Other: # Bowel Movements 0 3 - Medications Medications: Current Medications Ascorbic Acid (Vitamin C 500 Mg Tab) 500 mg PEG BID [facility] Last Admin: 09/09/15 09:55 Dose: 500 mg Aspirin (Aspirin) 325 mg PO DAILY [facility] Last Admin: 09/09/15 09:54 Dose: 325 mg Clopidogrel Bisulfate (Plavix) 75 mg PO DAILY [facility] Last Admin: 09/09/15 09:54 Dose: 75 mg Lisinopril (Zestril) 5 mg PO DAILY [facility] Last Admin: 09/09/15 09:54 Dose: 5 mg Nystatin (Nystop Topical Powder) 1 applic TOP BID [facility] Last Admin: 09/09/15 09:55 Dose: 1 applic Petrolatum (Desitin Original) 0 gm TOP BID [facility] Last Admin: 09/09/15 09:55 Dose: 1 applic Phenytoin (Dilantin) 100 mg PEG TID [facility] Last Admin: 09/09/15 13:02 Dose: 100 mg Polyethylene Glycol (Miralax) 17 gm PEG BID [facility] Last Admin: 08/21/15 11:26 Dose: Not Given Zinc Sulfate (Zinc Sulfate 220 Mg Cap) 220 mg PEG DAILY [facility] Last Admin: 09/09/15 09:54 Dose: 220 mg Attending/Attestation - Attestation I have personally seen and examined this patient.: Yes I have fully participated in the care of the patient.: Yes I have reviewed all pertinent clinical information: Yes Notes (Text): 09/09/15 15:27 Patient seen and examined at bedside with the resident. Continue clinical condition. Current management. Family to decide about the goals of care.
[2015-09-09] MEDS: Phenytoin 100 mg/4 ml Oral Susp UD PEG SCH ×3 (09:55→17:19)
[2015-09-09] MEDS: Zinc Oxide Topical 30 gm Tube TOP SCH ×2 (09:55→17:19)
[2015-09-10] MEDS: Phenytoin 100 mg/4 ml Oral Susp UD PEG SCH ×3 (09:27→17:06)
[2015-09-10] MEDS: Zinc Oxide Topical 30 gm Tube TOP SCH ×2 (09:27→17:06)
--- NOTE | 2015-09-10 14:07 | CP.PCM.PN ---
<Rashel Rodrigues - Last Filed: 09/10/15 14:46> Objective - Vital Signs/Intake and Output Vital Signs (last 24 hours): Vital Signs - 24 hr 09/09/15 09/10/15 09/10/15 21:27 05:41 08:50 Temperature 99.1 F 98.1 F Pulse Rate 86 98 H 98 H Respiratory 20 20 Rate Blood Pressure 145/93 H 143/81 O2 Sat by Pulse 100 100 Oximetry 09/10/15 09/10/15 13:43 13:52 Temperature 97.8 F 97.2 F L Pulse Rate 93 H 76 Respiratory 20 20 Rate Blood Pressure 103/66 99/60 L O2 Sat by Pulse 100 100 Oximetry Intake and Output (last 12 hours): Intake & Output 09/09/15 09/10/15 09/10/15 18:59 06:59 18:59 Intake Total 750 700 Output Total 700 975 700 Balance 50 -275 -700 Weight 106 lb Intake: Tube Feeding 750 700 Output: Urine 700 975 700 Urethral (Yoo) 700 975 700 Other: # Bowel Movements 1 - Medications Medications: Current Medications Ascorbic Acid (Vitamin C 500 Mg Tab) 500 mg PEG BID [facility] Last Admin: 09/10/15 09:27 Dose: 500 mg Aspirin (Aspirin) 325 mg PO DAILY [facility] Last Admin: 09/10/15 09:27 Dose: 325 mg Clopidogrel Bisulfate (Plavix) 75 mg PO DAILY [facility] Last Admin: 09/10/15 09:27 Dose: 75 mg Lisinopril (Zestril) 5 mg PO DAILY [facility] Last Admin: 09/10/15 09:27 Dose: 5 mg Nystatin (Nystop Topical Powder) 1 applic TOP BID [facility] Last Admin: 09/10/15 09:27 Dose: 1 applic Petrolatum (Desitin Original) 0 gm TOP BID [facility] Last Admin: 09/10/15 09:27 Dose: 1 applic Phenytoin (Dilantin) 100 mg PEG TID [facility] Last Admin: 09/10/15 13:56 Dose: 100 mg Polyethylene Glycol (Miralax) 17 gm PEG BID [facility] Last Admin: 08/21/15 11:26 Dose: Not Given Zinc Sulfate (Zinc Sulfate 220 Mg Cap) 220 mg PEG DAILY [facility] Last Admin: 09/10/15 09:27 Dose: 220 mg Assessment/Plan (1) Anoxic encephalopathy Current Visit: Yes Status: Acute Comment: 09/09: Patient awake. No acute changes. PEG feeds 10pm-8am. 09/08: Patient asleep and not responsive to verbal stimuli. NAD. Will continue to monitor. 09/07: Patient asleep, unable to arouse. No acute changes in condition. 09/06: Pt is awake, but only responsive to painful stimuli. Will continue to monitor 09/05: status unchanged, monitor 09/04: cont to monitor, pt unresponsive to verbal commands 09/03: No interval change, cont to monitor 09/02: Continue to monitor. 09/01: Continue to monitor, unchanged status. 08/31: status unchanged, will continue to monitor 08/30: awake and alert, eyes open, 08/29:Pt is more alert, able to open eyes; however, can not respond to verbal commands. will continue to monitor 08/28: Pt more alert today, continues to be unresponsive to verbal stimuli 08/27 No interval change in pt's condition, will continue to monitor 08/26 Patient's status remains the same 08/25 No improvement or change in mental status. Pt not responsive to verbal commands 08/24 Pt not responsive to verbal stimuli, only painful, unable to follow commands, pt continues to have swelling, minimal improvement, will continue to monitor, continue with dietary recommendations 08/22 Spontaneous movement, eyes open. given one dose of Lasix for increased swelling in upper extremities. GT bolus adjusted to dietary recommendations. 08/21 Spontaneous movement, opened eyes during examination. Per wound care nurse Sabrina, pt is having skin breakdown due to excessive diarrhea. Recommended nystatin powder and sensicare cream to be applied on affected area. Pt's laxatives were removed. Gastric tube feeding will be made into 4 boluses, at 8am , 12pm, 4pm, 8 pm, per dietary recommendations. C diff cultures ordered. (2) STEMI (ST elevation myocardial infarction) Current Visit: Yes Status: Acute Comment: s/p stenting Continue Lisinopril 5mg PO daily Continue Plavix 75mg PO daily Continue ASA 325mg PO daily (3) Respiratory failure Current Visit: Yes Status: Acute Comment: Dr. Salgado (pul) on case-help appreciated Cont patient on trach SIMV. Unable to wean. Monitor (4) Seizures Current Visit: Yes Status: Acute Comment: 09/09:Continue current management. 09/01: dilantin level 5.7, continue current management. 08/30--> repeat Dilantin level in am, cont meds, SZ precaution Continue dilantin 100mg via PEG TID Continue to monitor for seizure activity (5) Prophylactic measure Current Visit: Yes Status: Acute Comment: Plavix 75 mg PO daily SCDs Attending/Attestation - Attestation I have personally seen and examined this patient.: Yes I have fully participated in the care of the patient.: Yes I have reviewed all pertinent clinical information: Yes Notes (Text): 09/10/15 14:47 pt seen and exam during round with resident pt remains on vent, cont supportive mx <Howard Lopez - Last Filed: 09/10/15 18:31> Subjective - Subjective Subjective: PGY1 Medicine Progress Note Pt. seen and examined at bedside this morning. At the time of exam, the patient was in bed awake in NAD but unresponsive to verbal/tactile/painful stimuli. No acute events reported overnight. Review of Systems - Review of Systems Systems not reviewed;Unavailable: Altered Mental Status Objective - Vital Signs/Intake and Output Vital Signs (last 24 hours): Vital Signs - 24 hr 09/09/15 09/09/15 09/10/15 13:53 21:27 05:41 Temperature 98.5 F 99.1 F 98.1 F Pulse Rate 98 H 86 98 H Respiratory 20 20 20 Rate Blood Pressure 99/66 L 145/93 H 143/81 O2 Sat by Pulse 100 100 100 Oximetry 09/10/15 08:50 Temperature Pulse Rate 98 H Respiratory Rate Blood Pressure O2 Sat by Pulse Oximetry Intake and Output (last 12 hours): Intake & Output 09/09/15 09/10/15 09/10/15 18:59 06:59 18:59 Intake Total 750 700 Output Total 700 975 Balance 50 -275 Weight 48.081 kg Intake: Tube Feeding 750 700 Output: Urine 700 975 Urethral (Yoo) 700 975 Other: # Bowel Movements 1 - Medications Medications: Current Medications Ascorbic Acid (Vitamin C 500 Mg Tab) 500 mg PEG BID [facility] Last Admin: 09/10/15 09:27 Dose: 500 mg Aspirin (Aspirin) 325 mg PO DAILY [facility] Last Admin: 09/10/15 09:27 Dose: 325 mg Clopidogrel Bisulfate (Plavix) 75 mg PO DAILY [facility] Last Admin: 09/10/15 09:27 Dose: 75 mg Lisinopril (Zestril) 5 mg PO DAILY [facility] Last Admin: 09/10/15 Dose: 5 mg Nystatin (Nystop Topical Powder) 1 applic TOP BID [facility] Last Admin: 09/10/15: Dose: 1 applic Petrolatum (Desitin Original) 0 gm TOP BID [facility] Last Admin: 09/10/15:27 Dose: 1 applic Phenytoin (Dilantin) 100 mg PEG TID [facility] Last Admin: 09/10/15 Dose: 100 mg Polyethylene Glycol (Miralax) 17 gm PEG BID [facility] Last Admin: 08/21/15 11:26 Dose: Not Given Zinc Sulfate (Zinc Sulfate 220 Mg Cap) 220 mg PEG DAILY [facility] Last Admin: 09/10/15 Dose: 220 mg - Constitutional Appears: No Acute Distress - Head Exam Head Exam: ATRAUMATIC, NORMOCEPHALIC - Eye Exam Pupil Exam: PERRL - ENT Exam ENT Exam: Mucous Membranes Moist - Respiratory Exam Respiratory Exam: Clear to PA & Lateral, NORMAL BREATHING PATTERN. absent: Rales, Rhonchi, Wheezes - Cardiovascular Exam Cardiovascular Exam: REGULAR RHYTHM, +S1, +S2 - Extremities Exam Extremities exam: pedal pulses present. absent: pedal edema - Neurological Exam Neurological exam: Altered Assessment/Plan (1) Anoxic encephalopathy Current Visit: Yes Status: Acute Comment: 09/10: Pt. [id number] dependent. No change in mental status. 09/09: Patient awake. No acute changes. PEG feeds 10pm-8am. 09/08: Patient asleep and not responsive to verbal stimuli. NAD. Will continue to monitor. 09/07: Patient asleep, unable to arouse. No acute changes in condition. 09/06: Pt is awake, but only responsive to painful stimuli. Will continue to monitor 09/05: status unchanged, monitor 09/04: cont to monitor, pt unresponsive to verbal commands 09/03: No interval change, cont to monitor 09/02: Continue to monitor. 09/01: Continue to monitor, unchanged status. 08/31: status unchanged, will continue to monitor 08/30: awake and alert, eyes open, 08/29:Pt is more alert, able to open eyes; however, can not respond to verbal commands. will continue to monitor 08/28: Pt more alert today, continues to be unresponsive to verbal stimuli 08/27 No interval change in pt's condition, will continue to monitor 08/26 Patient's status remains the same 08/25 No improvement or change in mental status. Pt not responsive to verbal commands 08/24 Pt not responsive to verbal stimuli, only painful, unable to follow commands, pt continues to have swelling, minimal improvement, will continue to monitor, continue with dietary recommendations 08/22 Spontaneous movement, eyes open. given one dose of Lasix for increased swelling in upper extremities. GT bolus adjusted to dietary recommendations. 08/21 Spontaneous movement, opened eyes during examination. Per wound care nurse , Sabrina, pt is having skin breakdown due to excessive diarrhea. Recommended nystatin powder and sensicare cream to be applied on affected area. Pt's laxatives were removed. Gastric tube feeding will be made into 4 boluses, at 8am , 12pm, 4pm, 8 pm, per dietary recommendations. C diff cultures ordered. (2) Respiratory failure Current Visit: Yes Status: Acute Comment: Dr. Salgado (pulm) on case-help appreciated Cont patient on trach SIMV. Unable to wean. Monitor (3) Leukocytosis Current Visit: Yes Status: Acute Comment: resolved CXR - no active disease Monitor temperature Afebrile IV Cefepime 1gm q12h started 07/21 Monitor (4) STEMI (ST elevation myocardial infarction) Current Visit: Yes Status: Acute Comment: s/p stenting Continue Lisinopril 5mg PO daily Continue Plavix 75mg PO daily Continue ASA 325mg PO daily (5) CAD (coronary artery disease) Current Visit: Yes Status: Acute Comment: Continue Lisinopril 5mg PO daily Continue ASA 325mg PO daily Continue Plavix 75mg PO daily (6) Seizures Current Visit: Yes Status: Acute Comment: 09/09:Continue current management. 09/01: dilantin level 5.7, continue current management. 08/30--> repeat Dilantin level in am, cont meds, SZ precaution Continue dilantin 100mg via PEG TID Continue to monitor for seizure activity (7) Prophylactic measure Current Visit: Yes Status: Acute Comment: Plavix 75 mg PO daily SCDs (8) Prophylactic measure Current Visit: Yes Status: Acute Comment: Plavix 75 mg PO daily [facility]CD[facility] Comment: Plavix 75 mg PO daily [facility]
[2015-09-11 06:32] LABS: BASO # 0.1 K/uL (0.0-0.2); BASO % 0.3 % (0.0-2.0); EOS # 1.9 K/uL (0.0-0.7); EOS % 11.3 % (0.0-4.0); HEMOGLOBIN 10.7 g/dL (12.0-18.0); LYMPH # 1.5 K/uL (1.0-4.3); LYMPH % 8.5 % (20.0-40.0); MEAN CORPUSCULAR HEMOGLOBIN 30.6 pg (27.0-31.0); MEAN CORPUSCULAR HGB CONC 32.2 g/dL (33.0-37.0); MEAN PLATELET VOLUME 8.3 fL (7.2-11.7); MONO # 1.3 K/uL (0.0-0.8); MONO % 7.6 % (0.0-10.0); NEUT # 12.4 K/uL (1.8-7.0); NEUT % 72.3 % (50.0-75.0); NRBC % 0.1 % (0.0-2.0); PLATELET COUNT 295 K/uL (130-400); RBC 3.51 Mil/uL (4.40-5.90); RED CELL DISTRIBUTION WIDTH 14.4 % (11.5-14.5); WHITE BLOOD COUNT 17.2 K/uL (4.8-10.8)
[2015-09-11 07:08] LABS: ALBUMIN 2.9 g/dL (3.5-5.0)
[2015-09-11 07:10] LABS: GFR NON-AFRICAN AMERICAN > 60
[2015-09-11 07:11] LABS: AST/SGOT 52 U/L (17-59); BLOOD UREA NITROGEN 20 mg/dL (9-20); CALCIUM 8.4 mg/dL (8.4-10.2)
[2015-09-11 07:12] LABS: ALT/SGPT 107 U/L (21-72)
[2015-09-11 07:28] LABS: ALB/GLOB RATIO 0.7 (1.0-2.1)
[2015-09-11 08:43] LABS: EOSINOPHIL 15 % (0-4); LYMPHOCYTE 11 % (20-40); MONOCYTE 5 % (0-10); NEUTROPHIL 69 % (50-75); PLATELET ESTIMATE NORMAL (NORMAL); TOTAL CELLS COUNTED 100
[2015-09-11 08:44] LABS: ANISOCYTOSIS SLIGHT; HYPOCHROMIC SLIGHT; POIKILOCYTOSIS SLIGHT; TOXIC GRANULATION PRESENT
[2015-09-11] MEDS: Phenytoin 100 mg/4 ml Oral Susp UD PEG SCH ×3 (09:35→17:40)
[2015-09-11] MEDS: Zinc Oxide Topical 30 gm Tube TOP SCH ×2 (09:35→17:53)
--- NOTE | 2015-09-11 10:01 | CP.PCM.PN ---
<Howard Lopez - Last Filed: 09/11/15 16:04> Subjective - Subjective Subjective: PGY1 Medicine Progress Note Pt. seen and examined at bedside this morning. At the time of exam, pt was resting in bed in NAD. Pt. remains unresponsive with no change in mental status. Review of Systems - Review of Systems Systems not reviewed;Unavailable: Altered Mental Status Objective - Vital Signs/Intake and Output Vital Signs (last 24 hours): Vital Signs - 24 hr 09/10/15 09/10/15 09/10/15 13:43 13:52 21:13 Temperature 97.8 F 97.2 F L 100.1 F H Pulse Rate 93 H 76 101 H Respiratory 20 20 20 Rate Blood Pressure 103/66 99/60 L 118/75 O2 Sat by Pulse 100 100 99 Oximetry 09/11/15 05:39 Temperature 98.2 F Pulse Rate 84 Respiratory 18 Rate Blood Pressure 119/80 O2 Sat by Pulse 100 Oximetry Intake and Output (last 12 hours): Intake & Output 09/10/15 09/11/15 09/11/15 18:59 06:59 18:59 Intake Total 800 Output Total 700 1300 Balance 100 -1300 Weight 48.398 kg Intake: Tube Feeding 800 Output: Urine 700 1300 Urethral (Baker) 700 1300 Other: # Bowel Movements 1 - Medications Medications: Current Medications Ascorbic Acid (Vitamin C 500 Mg Tab) 500 mg PEG BID [facility] Last Admin: 09/11/15 09:37 Dose: 500 mg Aspirin (Aspirin) 325 mg PO DAILY [facility] Last Admin: 09/11/15 09:35 Dose: 325 mg Clopidogrel Bisulfate (Plavix) 75 mg PO DAILY [facility] Last Admin: 09/11/15 09:35 Dose: 75 mg Lisinopril (Zestril) 5 mg PO DAILY [facility] Last Admin: 09/11/15 09:35 Dose: 5 mg Nystatin (Nystop Topical Powder) 1 applic TOP BID [facility] Last Admin: 09/11/15 09:36 Dose: 1 applic Petrolatum (Desitin Original) 0 gm TOP BID [facility] Last Admin: 09/11/15 09:35 Dose: 1 applic Phenytoin (Dilantin) 100 mg PEG TID [facility] Last Admin: 09/11/15 09:35 Dose: 100 mg Polyethylene Glycol (Miralax) 17 gm PEG BID [facility] Last Admin: 08/21/15 11:26 Dose: Not Given Zinc Sulfate (Zinc Sulfate 220 Mg Cap) 220 mg PEG DAILY [facility] Last Admin: 09/11/15 09:35 Dose: 220 mg - Labs Labs (last 24 hours): Laboratory Results - last 24 hr 09/11/15 06:19 WBC 17.2 H RBC 3.51 L Hgb 10.7 L Hct 33.3 L MCV 95.0 H MCH 30.6 MCHC 32.2 L RDW 14.4 Plt Count 295 MPV 8.3 Neut % (Auto) 72.3 Lymph % (Auto) 8.5 L [place] % (Auto) 7.6 Eos % (Auto) 11.3 H Baso % (Auto) 0.3 Neut # 12.4 H Lymph # 1.5 [place] # 1.3 H Eos # 1.9 H Baso # 0.1 Neutrophils % (Manual) 69 Lymphocytes % (Manual) 11 L Monocytes % (Manual) 5 Eosinophils % (Manual) 15 H Toxic Granulation Present Platelet Estimate Normal Hypochromasia (manual) Slight Poikilocytosis (manual Slight Anisocytosis (manual) Slight Sodium 137 Potassium 4.1 Chloride 101 Carbon Dioxide 30 Anion Gap 11 BUN 20 Creatinine 0.5 L Est GFR ( Amer) > 60 Est GFR (Non-Af Amer) > 60 Random Glucose 133 H Calcium 8.4 Phosphorus 3.7 Magnesium 2.1 Total Bilirubin 0.3 AST 52 ALT 107 H D Alkaline Phosphatase 118 Total Protein 6.8 Albumin 2.9 L Globulin 3.9 Albumin/Globulin Ratio 0.7 L - Constitutional Appears: No Acute Distress - Head Exam Head Exam: ATRAUMATIC, NORMOCEPHALIC - ENT Exam ENT Exam: Mucous Membranes Moist - Respiratory Exam Respiratory Exam: Clear to PA & Lateral, NORMAL BREATHING PATTERN. absent: Rales, Rhonchi, Wheezes - Cardiovascular Exam Cardiovascular Exam: +S1, +S2. absent: Gallop, Rubs, Systolic Murmur - GI/Abdominal Exam GI & Abdominal Exam: Normal Bowel Sounds, Soft - Extremities Exam Extremities exam: pedal pulses present Additional comments: feet very dry and cracked - Neurological Exam Neurological exam: Altered Assessment/Plan (1) Anoxic encephalopathy Current Visit: Yes Status: Acute Comment: 09/11: [id number] dependent 09/10: Pt. [id number] dependent. No change in mental status. 09/09: Patient awake. No acute changes. PEG feeds 10pm-8am. 09/08: Patient asleep and not responsive to verbal stimuli. NAD. Will continue to monitor. 09/07: Patient asleep, unable to arouse. No acute changes in condition. 09/06: Pt is awake, but only responsive to painful stimuli. Will continue to monitor 09/05: status unchanged, monitor 09/04: cont to monitor, pt unresponsive to verbal commands 09/03: No interval change, cont to monitor 09/02: Continue to monitor. 09/01: Continue to monitor, unchanged status. 08/31: status unchanged, will continue to monitor 08/30: awake and alert, eyes open, 08/29:Pt is more alert, able to open eyes; however, can not respond to verbal commands. will continue to monitor 08/28: Pt more alert today, continues to be unresponsive to verbal stimuli 08/27 No interval change in pt's condition, will continue to monitor 08/26 Patient's status remains the same 08/25 No improvement or change in mental status. Pt not responsive to verbal commands 08/24 Pt not responsive to verbal stimuli, only painful, unable to follow commands, pt continues to have swelling, minimal improvement, will continue to monitor, continue with dietary recommendations 08/22 Spontaneous movement, eyes open. given one dose of Lasix for increased swelling in upper extremities. GT bolus adjusted to dietary recommendations. 08/21 Spontaneous movement, opened eyes during examination. Per wound care nurse Sabrina, pt is having skin breakdown due to excessive diarrhea. Recommended nystatin powder and sensicare cream to be applied on affected area. Pt's laxatives were removed. Gastric tube feeding will be made into 4 boluses, at 8am , 12pm, 4pm, 8 pm, per dietary recommendations. C diff cultures ordered. (2) Leukocytosis Current Visit: Yes Status: Acute Comment: 09/11: WBC increased from to 17.2. replace baker catheter and f/u urine culture, urinalysis. f/u CXR in AM CXR - no active disease Monitor temperature Afebrile IV Cefepime 1gm q12h started 07/21 Monitor (3) Respiratory failure Current Visit: Yes Status: Acute Comment: Dr. Salgado (pulm) on case-help appreciated Cont patient on trach SIMV. Unable to wean. Monitor (4) STEMI (ST elevation myocardial infarction) Current Visit: Yes Status: Acute Comment: s/p stenting Continue Lisinopril 5mg PO daily Continue Plavix 75mg PO daily Continue ASA 325mg PO daily (5) CAD (coronary artery disease) Current Visit: Yes Status: Acute Comment: Continue Lisinopril 5mg PO daily Continue ASA 325mg PO daily Continue Plavix 75mg PO daily (6) Seizures Current Visit: Yes Status: Acute Comment: 09/09:Continue current management. 09/01: dilantin level 5.7, continue current management. 08/30--> repeat Dilantin level in am, cont meds, SZ precaution Continue dilantin 100mg via PEG TID Continue to monitor for seizure activity (7) Prophylactic measure Current Visit: Yes Status: Acute Comment: Plavix 75 mg PO daily SCD[facility] <RaviRashel - Last Filed: 09/11/15 16:21> Objective - Vital Signs/Intake and Output Vital Signs (last 24 hours): Vital Signs - 24 hr 09/10/15 09/11/15 09/11/15 21:13 05:39 14:12 Temperature 100.1 F H 98.2 F 98.2 F Pulse Rate 101 H 84 86 Respiratory 20 18 20 Rate Blood Pressure 118/75 119/80 112/73 O2 Sat by Pulse 99 100 100 Oximetry Intake and Output (last 12 hours): Intake & Output 09/10/15 09/11/15 09/11/15 18:59 06:59 18:59 Intake Total 800 Output Total 700 1300 Balance 100 -1300 Weight 106 lb 11.2 oz Intake: Tube Feeding 800 Output: Urine 700 1300 Urethral (Baker) 700 1300 Other: # Bowel Movements 1 - Medications Medications: Current Medications Ascorbic Acid (Vitamin C 500 Mg Tab) 500 mg PEG BID [facility] Last Admin: 09/11/15 09:37 Dose: 500 mg Aspirin (Aspirin) 325 mg PO DAILY [facility] Last Admin: 09/11/15 09:35 Dose: 325 mg Clopidogrel Bisulfate (Plavix) 75 mg PO DAILY [facility] Last Admin: 09/11/15 09:35 Dose: 75 mg Lisinopril (Zestril) 5 mg PO DAILY [facility] Last Admin: 09/11/15 09:35 Dose: 5 mg Nystatin (Nystop Topical Powder) 1 applic TOP BID [facility] Last Admin: 09/11/15 09:36 Dose: 1 applic Petrolatum (Desitin Original) 0 gm TOP BID [facility] Last Admin: 09/11/15 09:35 Dose: 1 applic Phenytoin (Dilantin) 100 mg PEG TID [facility] Last Admin: 09/11/15 13:17 Dose: 100 mg Polyethylene Glycol (Miralax) 17 gm PEG BID [facility] Last Admin: 08/21/15 11:26 Dose: Not Given Zinc Sulfate (Zinc Sulfate 220 Mg Cap) 220 mg PEG DAILY [facility] Last Admin: 09/11/15 09:35 Dose: 220 mg - Labs Labs (last 24 hours): Laboratory Results - last 24 hr 09/11/15 06:19 WBC 17.2 H RBC 3.51 L Hgb 10.7 L Hct 33.3 L MCV 95.0 H MCH 30.6 MCHC 32.2 L RDW 14.4 Plt Count 295 MPV 8.3 Neut % (Auto) 72.3 Lymph % (Auto) 8.5 L [place] % (Auto) 7.6 Eos % (Auto) 11.3 H Baso % (Auto) 0.3 Neut # 12.4 H Lymph # 1.5 [place] # 1.3 H Eos # 1.9 H Baso # 0.1 Neutrophils % (Manual) 69 Lymphocytes % (Manual) 11 L Monocytes % (Manual) 5 Eosinophils % (Manual) 15 H Toxic Granulation Present Platelet Estimate Normal Hypochromasia (manual) Slight Poikilocytosis (manual Slight Anisocytosis (manual) Slight Sodium 137 Potassium 4.1 Chloride 101 Carbon Dioxide 30 Anion Gap 11 BUN 20 Creatinine 0.5 L Est GFR ( Amer) > 60 Est GFR (Non-Af Amer) > 60 Random Glucose 133 H Calcium 8.4 Phosphorus 3.7 Magnesium 2.1 Total Bilirubin 0.3 AST 52 ALT 107 H D Alkaline Phosphatase 118 Total Protein 6.8 Albumin 2.9 L Globulin 3.9 Albumin/Globulin Ratio 0.7 L Assessment/Plan (1) Anoxic encephalopathy Current Visit: Yes Status: Acute Comment: 09/11: [id number]-[id number] dependent 09/10: Pt. [id number]-[id number] dependent. No change in mental status. 09/09: Patient awake. No acute changes. PEG feeds 10pm-8am. 09/08: Patient asleep and not responsive to verbal stimuli. NAD. Will continue to monitor. 09/07: Patient asleep, unable to arouse. No acute changes in condition. 09/06: Pt is awake, but only responsive to painful stimuli. Will continue to monitor 09/05: status unchanged, monitor 09/04: cont to monitor, pt unresponsive to verbal commands 09/03: No interval change, cont to monitor 09/02: Continue to monitor. 09/01: Continue to monitor, unchanged status. 08/31: status unchanged, will continue to monitor 08/30: awake and alert, eyes open, 08/29:Pt is more alert, able to open eyes; however, can not respond to verbal commands. will continue to monitor 08/28: Pt more alert today, continues to be unresponsive to verbal stimuli 08/27 No interval change in pt's condition, will continue to monitor 08/26 Patient's status remains the same 08/25 No improvement or change in mental status. Pt not responsive to verbal commands 08/24 Pt not responsive to verbal stimuli, only painful, unable to follow commands, pt continues to have swelling, minimal improvement, will continue to monitor, continue with dietary recommendations 08/22 Spontaneous movement, eyes open. given one dose of Lasix for increased swelling in upper extremities. GT bolus adjusted to dietary recommendations. 08/21 Spontaneous movement, opened eyes during examination. Per wound care nurse Sabrina, pt is having skin breakdown due to excessive diarrhea. Recommended nystatin powder and sensicare cream to be applied on affected area. Pt's laxatives were removed. Gastric tube feeding will be made into 4 boluses, at 8am , 12pm, 4pm, 8 pm, per dietary recommendations. C diff cultures ordered. (2) STEMI (ST elevation myocardial infarction) Current Visit: Yes Status: Acute Comment: s/p stenting Continue Lisinopril 5mg PO daily Continue Plavix 75mg PO daily Continue ASA 325mg PO daily (3) Respiratory failure Current Visit: Yes Status: Acute Comment: Dr. Salgado (pulm) on case-help appreciated Cont patient on trach SIMV. Unable to wean. Monitor (4) Seizures Current Visit: Yes Status: Acute Comment: 09/09:Continue current management. 09/01: dilantin level 5.7, continue current management. 08/30--> repeat Dilantin level in am, cont meds, SZ precaution Continue dilantin 100mg via PEG TID Continue to monitor for seizure activity (5) Prophylactic measure Current Visit: Yes Status: Acute Comment: Plavix 75 mg PO daily SCDs Attending/Attestation - Attestation I have personally seen and examined this patient.: Yes I have fully participated in the care of the patient.: Yes I have reviewed all pertinent clinical information: Yes Notes (Text): 09/11/15 16:20 Patient seen and examined during round with resident WBC increasing will get UA and UC after Filey's cath was changed repeat CXR No ABx at this time pt was in the room
[2015-09-11 18:22] LABS: URINE BILIRUBIN NEGATIVE (NEGATIVE); URINE BLOOD 1+ (NEGATIVE); URINE CLARITY Hazy (Clear); URINE COLOR Yellow (YELLOW); URINE GLUCOSE (UA) Normal (Normal); URINE LEUKOCYTE ESTERASE 3+ Leu/uL (Negative); URINE PROTEIN 1+ mg/dL (NEGATIVE); URINE UROBILINOGEN Normal mg/dL (0.2-1.0)
[2015-09-12 06:56] LABS: BASO % 0.3 % (0.0-2.0); EOS # 1.9 K/uL (0.0-0.7); EOS % 14.7 % (0.0-4.0); HEMOGLOBIN 10.6 g/dL (12.0-18.0); LYMPH # 1.4 K/uL (1.0-4.3); LYMPH % 10.6 % (20.0-40.0); MEAN CELL VOLUME 94.7 fL (80.0-94.0); MEAN CORPUSCULAR HEMOGLOBIN 31.3 pg (27.0-31.0); MEAN CORPUSCULAR HGB CONC 33.1 g/dL (33.0-37.0); MEAN PLATELET VOLUME 8.4 fL (7.2-11.7); MONO # 1.2 K/uL (0.0-0.8); MONO % 9.2 % (0.0-10.0); NEUT # 8.6 K/uL (1.8-7.0); NEUT % 65.2 % (50.0-75.0); RBC 3.4 Mil/uL (4.40-5.90); RED CELL DISTRIBUTION WIDTH 14.6 % (11.5-14.5); WHITE BLOOD COUNT 13.2 K/uL (4.8-10.8)
[2015-09-12 08:01] LABS: ALBUMIN 2.9 g/dL (3.5-5.0)
[2015-09-12 08:04] LABS: ALB/GLOB RATIO 0.7 (1.0-2.1); ALT/SGPT 99 U/L (21-72); AST/SGOT 49 U/L (17-59); BLOOD UREA NITROGEN 18 mg/dL (9-20); CALCIUM 8.8 mg/dL (8.4-10.2); GFR NON-AFRICAN AMERICAN > 60
[2015-09-12] MEDS: Phenytoin 100 mg/4 ml Oral Susp UD PEG SCH ×3 (10:41→17:55)
[2015-09-12] MEDS: Zinc Oxide Topical 30 gm Tube TOP SCH ×2 (10:43→17:56)
--- NOTE | 2015-09-12 12:13 | RAD ---
HISTORY: Pneumonia. Technique: Single view portable semi erect @ 08:00 COMPARISON: 07/18/2015 FINDINGS: LUNGS: No active pulmonary disease. PLEURA: No significant pleural effusion identified, no pneumothorax apparent. CARDIOVASCULAR: Normal. OSSEOUS STRUCTURES: No significant abnormalities. VISUALIZED UPPER ABDOMEN: Normal. OTHER FINDINGS: Stable position of tracheostomy device. IMPRESSION: No active disease. No significant interval change compared to the prior examination(s).
--- NOTE | 2015-09-12 14:11 | CP.PCM.PN ---
<Mariella Wagner - Last Filed: 09/12/15 14:04> Subjective - Subjective Subjective: Medicine Progress Note: Patient is non verbal. Patient is laying in bed in no acute distress. Patient had baker switched out yesterday. UA cultures showed gram negative rods. Will start antibiotics and narrow treatment as culture becomes available. Review of Systems - Review of Systems Systems not reviewed;Unavailable: Other (anoxic brain injury) Objective - Vital Signs/Intake and Output Vital Signs (last 24 hours): Vital Signs - 24 hr 09/11/15 09/11/15 09/12/15 14:12 21:05 05:06 Temperature 98.2 F 98.6 F 98.6 F Pulse Rate 86 76 82 Respiratory 20 20 20 Rate Blood Pressure 112/73 122/81 124/78 O2 Sat by Pulse 100 100 100 Oximetry Intake and Output (last 12 hours): Intake & Output 09/11/15 09/12/15 09/12/15 18:59 06:59 18:59 Intake Total 900 1030 Output Total 300 200 Balance 600 830 Weight 106 lb Intake: Tube Feeding 900 1030 Output: Gastric Amount 0 Stomach 0 Urine 300 200 Urethral (Baker) 300 200 Other: # Bowel Movements 1 - Medications Medications: Current Medications Ascorbic Acid (Vitamin C 500 Mg Tab) 500 mg PEG BID [facility] Last Admin: 09/12/15 10:40 Dose: 500 mg Aspirin (Aspirin) 325 mg PO DAILY [facility] Last Admin: 09/12/15 10:40 Dose: 325 mg Clopidogrel Bisulfate (Plavix) 75 mg PO DAILY [facility] Last Admin: 09/12/15 10:40 Dose: 75 mg Ceftriaxone Sodium 1 gm/ (Sodium Chloride) 50 mls @ 100 mls/hr IVPB DAILY [facility] Lisinopril (Zestril) 5 mg PO DAILY [facility] Last Admin: 09/12/15 10:40 Dose: 5 mg Nystatin (Nystop Topical Powder) 1 applic TOP BID [facility] Last Admin: 09/12/15 10:43 Dose: 1 applic Petrolatum (Desitin Original) 0 gm TOP BID [facility] Last Admin: 09/12/15 10:43 Dose: 1 applic Phenytoin (Dilantin) 100 mg PEG TID [facility] Last Admin: 09/12/15 13:41 Dose: 100 mg Polyethylene Glycol (Miralax) 17 gm PEG BID [facility] Last Admin: 08/21/15 11:26 Dose: Not Given Zinc Sulfate (Zinc Sulfate 220 Mg Cap) 220 mg PEG DAILY [facility] Last Admin: 09/12/15 10:40 Dose: 220 mg - Labs Labs (last 24 hours): Laboratory Results - last 24 hr 09/11/15 09/12/15 18:09 06:42 WBC 13.2 H RBC 3.40 L Hgb 10.6 L Hct 32.2 L MCV 94.7 H MCH 31.3 H MCHC 33.1 RDW 14.6 H Plt Count 302 MPV 8.4 Neut % (Auto) 65.2 Lymph % (Auto) 10.6 L [place] % (Auto) 9.2 Eos % (Auto) 14.7 H Baso % (Auto) 0.3 Neut # 8.6 H Lymph # 1.4 [place] # 1.2 H Eos # 1.9 H Baso # 0.0 Sodium 138 Potassium 4.3 Chloride 101 Carbon Dioxide 31 H Anion Gap 10 BUN 18 Creatinine 0.4 L Est GFR ( Amer) > 60 Est GFR (Non-Af Amer) > 60 Random Glucose 112 H Calcium 8.8 Total Bilirubin 0.3 AST 49 ALT 99 H Alkaline Phosphatase 115 Total Protein 6.9 Albumin 2.9 L Globulin 3.9 Albumin/Globulin Ratio 0.7 L Urine Color Yellow Urine Clarity Hazy Urine pH 6.0 Ur Specific [place] 1.015 Urine Protein 1+ H Urine Glucose (UA) Normal Urine Ketones Negative Urine Blood 1+ H Urine Nitrate Negative Urine Bilirubin Negative Urine Urobilinogen Normal Ur Leukocyte Esterase 3+ H Urine WBC (Auto) 25 H Urine RBC (Auto) 15 H - Constitutional Appears: No Acute Distress - Head Exam Head Exam: ATRAUMATIC, NORMAL INSPECTION, NORMOCEPHALIC - Eye Exam Eye Exam: EOMI, PERRL Pupil Exam: NORMAL ACCOMODATION, PERRL - Respiratory Exam Respiratory Exam: Clear to PA & Lateral. absent: Rales, Rhonchi, Wheezes - Cardiovascular Exam Cardiovascular Exam: REGULAR RHYTHM, +S1, +S2 - GI/Abdominal Exam GI & Abdominal Exam: Normal Bowel Sounds, Soft. absent: Distended - Extremities Exam Extremities exam: pedal pulses present. absent: pedal edema - Neurological Exam Neurological exam: Altered Assessment/Plan (1) Urinary tract infection Current Visit: Yes Status: Acute Comment: Afebrile WBC today 13.2 (down from 17.2 yesterday) Urine culture prelim from 09/11/15 showed gram negative rods. Start Rocephim 1 gm IVPB Daily -- DAY 1 f/u CBC on Thursday09/14/15. (2) Anoxic encephalopathy Current Visit: Yes Status: Acute Comment: 09/12: patient on SIMV 09/11: [id number] dependent 09/10: Pt. [id number] dependent. No change in mental status. 09/09: Patient awake. No acute changes. PEG feeds 10pm-8am. 09/08: Patient asleep and not responsive to verbal stimuli. NAD. Will continue to monitor. 09/07: Patient asleep, unable to arouse. No acute changes in condition. 09/06: Pt is awake, but only responsive to painful stimuli. Will continue to monitor 09/05: status unchanged, monitor 09/04: cont to monitor, pt unresponsive to verbal commands 09/03: No interval change, cont to monitor 09/02: Continue to monitor. 09/01: Continue to monitor, unchanged status. 08/31: status unchanged, will continue to monitor 08/30: awake and alert, eyes open, 08/29:Pt is more alert, able to open eyes; however, can not respond to verbal commands. will continue to monitor 08/28: Pt more alert today, continues to be unresponsive to verbal stimuli 08/27 No interval change in pt's condition, will continue to monitor 08/26 Patient's status remains the same 08/25 No improvement or change in mental status. Pt not responsive to verbal commands 08/24 Pt not responsive to verbal stimuli, only painful, unable to follow commands, pt continues to have swelling, minimal improvement, will continue to monitor, continue with dietary recommendations 08/22 Spontaneous movement, eyes open. given one dose of Lasix for increased swelling in upper extremities. GT bolus adjusted to dietary recommendations. 08/21 Spontaneous movement, opened eyes during examination. Per wound care nurse , Sabrina, pt is having skin breakdown due to excessive diarrhea. Recommended nystatin powder and sensicare cream to be applied on affected area. Pt's laxatives were removed. Gastric tube feeding will be made into 4 boluses, at 8am , 12pm, 4pm, 8 pm, per dietary recommendations. C diff cultures ordered. (3) Chest congestion Current Visit: Yes Status: Acute Comment: 09/12: CXR on 09/12 shows no changes. 09/09: No acute distress. Afebrile. 09/08: Not using accesory muscles. Afebrile. Sputum culture (07/28/15) with Pseudomonas aeruginosa s/p treatment Dr. Armstrong on case-following. (4) Transaminitis Current Visit: Yes Status: Acute Comment: 09/12: AST 49, ALT99 and AlK phos 115. Improved. Recheck Q4days. Hep panel negative Continue to monitor LFTs (5) Edema of upper extremity Current Visit: Yes Status: Acute Comment: Venous doppler (07/19) - thrombosis of right cephalic vein (superficial) - please see official report Continue warm compresses Monitor (6) Respiratory failure Current Visit: Yes Status: Acute Comment: Dr. Salgado (pul) on case-help appreciated Cont patient on trach SIMV. Unable to wean. Monitor (7) STEMI (ST elevation myocardial infarction) Current Visit: Yes Status: Acute Comment: s/p stenting Continue Lisinopril 5mg PO daily Continue Plavix 75mg PO daily Continue ASA 325mg PO daily (8) Seizures Current Visit: Yes Status: Acute Comment: 09/12: No seizure activity. 09/09:Continue current management. 09/01: dilantin level 5.7, continue current management. 08/30--> repeat Dilantin level in am, cont meds, SZ precaution Continue dilantin 100mg via PEG TID Continue to monitor for seizure activity (9) Prophylactic measure Current Visit: Yes Status: Acute Comment: Plavix 75 mg PO daily [facility] <Ravi,Rashel - Last Filed: 09/12/15 16:40> Objective - Vital Signs/Intake and Output Vital Signs (last 24 hours): Vital Signs - 24 hr 09/11/15 09/12/15 09/12/15 21:05 05:06 14:00 Temperature 98.6 F 98.6 F 98 F Pulse Rate 76 82 86 Respiratory 20 20 16 Rate Blood Pressure 122/81 124/78 137/77 O2 Sat by Pulse 100 100 100 Oximetry Intake and Output (last 12 hours): Intake & Output 09/11/15 09/12/15 09/12/15 18:59 06:59 18:59 Intake Total 900 1030 Output Total 300 200 900 Balance 600 830 -900 Weight 106 lb Intake: Tube Feeding 900 1030 Output: Gastric Amount 0 Stomach 0 Urine 300 200 900 Urethral (Baker) 300 200 900 Other: # Bowel Movements 1 1 - Medications Medications: Current Medications Ascorbic Acid (Vitamin C 500 Mg Tab) 500 mg PEG BID [facility] Last Admin: 09/12/15 10:40 Dose: 500 mg Aspirin (Aspirin) 325 mg PO DAILY [facility] Last Admin: 09/12/15 10:40 Dose: 325 mg Clopidogrel Bisulfate (Plavix) 75 mg PO DAILY [facility] Last Admin: 09/12/15 10:40 Dose: 75 mg Ceftriaxone Sodium 1 gm/ (Sodium Chloride) 50 mls @ 100 mls/hr IVPB DAILY [facility] Lisinopril (Zestril) 5 mg PO DAILY [facility] Last Admin: 09/12/15 10:40 Dose: 5 mg Nystatin (Nystop Topical Powder) 1 applic TOP BID [facility] Last Admin: 09/12/15 10:43 Dose: 1 applic Petrolatum (Desitin Original) 0 gm TOP BID [facility] Last Admin: 09/12/15 10:43 Dose: 1 applic Phenytoin (Dilantin) 100 mg PEG TID [facility] Last Admin: 09/12/15 13:41 Dose: 100 mg Polyethylene Glycol (Miralax) 17 gm PEG BID [facility] Last Admin: 08/21/15 11:26 Dose: Not Given Zinc Sulfate (Zinc Sulfate 220 Mg Cap) 220 mg PEG DAILY [facility] Last Admin: 09/12/15 10:40 Dose: 220 mg - Labs Labs (last 24 hours): Laboratory Results - last 24 hr 09/11/15 09/12/15 18:09 06:42 WBC 13.2 H RBC 3.40 L Hgb 10.6 L Hct 32.2 L MCV 94.7 H MCH 31.3 H MCHC 33.1 RDW 14.6 H Plt Count 302 MPV 8.4 Neut % (Auto) 65.2 Lymph % (Auto) 10.6 L [place] % (Auto) 9.2 Eos % (Auto) 14.7 H Baso % (Auto) 0.3 Neut # 8.6 H Lymph # 1.4 [place] # 1.2 H Eos # 1.9 H Baso # 0.0 Sodium 138 Potassium 4.3 Chloride 101 Carbon Dioxide 31 H Anion Gap 10 BUN 18 Creatinine 0.4 L Est GFR ( Amer) > 60 Est GFR (Non-Af Amer) > 60 Random Glucose 112 H Calcium 8.8 Total Bilirubin 0.3 AST 49 ALT 99 H Alkaline Phosphatase 115 Total Protein 6.9 Albumin 2.9 L Globulin 3.9 Albumin/Globulin Ratio 0.7 L Urine Color Yellow Urine Clarity Hazy Urine pH 6.0 Ur Specific [place] 1.015 Urine Protein 1+ H Urine Glucose (UA) Normal Urine Ketones Negative Urine Blood 1+ H Urine Nitrate Negative Urine Bilirubin Negative Urine Urobilinogen Normal Ur Leukocyte Esterase 3+ H Urine WBC (Auto) 25 H Urine RBC (Auto) 15 H Assessment/Plan (1) Anoxic encephalopathy Current Visit: Yes Status: Acute Comment: 09/12: patient on SIMV 09/11: [id number]-[id number] dependent 09/10: Pt. onavv-zh-whgm dependent. No change in mental status. 09/09: Patient awake. No acute changes. PEG feeds 10pm-8am. 09/08: Patient asleep and not responsive to verbal stimuli. NAD. Will continue to monitor. 09/07: Patient asleep, unable to arouse. No acute changes in condition. 09/06: Pt is awake, but only responsive to painful stimuli. Will continue to monitor 09/05: status unchanged, monitor 09/04: cont to monitor, pt unresponsive to verbal commands 09/03: No interval change, cont to monitor 09/02: Continue to monitor. 09/01: Continue to monitor, unchanged status. 08/31: status unchanged, will continue to monitor 08/30: awake and alert, eyes open, 08/29:Pt is more alert, able to open eyes; however, can not respond to verbal commands. will continue to monitor 08/28: Pt more alert today, continues to be unresponsive to verbal stimuli 08/27 No interval change in pt's condition, will continue to monitor 08/26 Patient's status remains the same 08/25 No improvement or change in mental status. Pt not responsive to verbal commands 08/24 Pt not responsive to verbal stimuli, only painful, unable to follow commands, pt continues to have swelling, minimal improvement, will continue to monitor, continue with dietary recommendations 08/22 Spontaneous movement, eyes open. given one dose of Lasix for increased swelling in upper extremities. GT bolus adjusted to dietary recommendations. 08/21 Spontaneous movement, opened eyes during examination. Per wound care nurse , Sabrina, pt is having skin breakdown due to excessive diarrhea. Recommended nystatin powder and sensicare cream to be applied on affected area. Pt's laxatives were removed. Gastric tube feeding will be made into 4 boluses, at 8am , 12pm, 4pm, 8 pm, per dietary recommendations. C diff cultures ordered. (2) STEMI (ST elevation myocardial infarction) Current Visit: Yes Status: Acute Comment: s/p stenting Continue Lisinopril 5mg PO daily Continue Plavix 75mg PO daily Continue ASA 325mg PO daily (3) Respiratory failure Current Visit: Yes Status: Acute Comment: Dr. Salgado (pul) on case-help appreciated Cont patient on trach SIMV. Unable to wean. Monitor (4) Seizures Current Visit: Yes Status: Acute Comment: 09/12: No seizure activity. 09/09:Continue current management. 09/01: dilantin level 5.7, continue current management. 08/30--> repeat Dilantin level in am, cont meds, SZ precaution Continue dilantin 100mg via PEG TID Continue to monitor for seizure activity (5) Prophylactic measure Current Visit: Yes Status: Acute Comment: Plavix 75 mg PO daily [facility] Attending/Attestation - Attestation I have personally seen and examined this patient.: Yes I have fully participated in the care of the patient.: Yes I have reviewed all pertinent clinical information: Yes Notes (Text): 09/12/15 16:39 Patient seen and examined during round with resident pt has no new events, no fever spiking Urine culture pos for GNR and will start IV Rocephin cont vent mx as per Pulm cont supportive mx No family in the room.
[2015-09-13] MEDS: Phenytoin 100 mg/4 ml Oral Susp UD PEG SCH ×3 (10:38→17:35)
--- NOTE | 2015-09-13 10:38 | CP.PCM.PN ---
<Mariella Wagner - Last Filed: 09/13/15 10:34> Subjective - Subjective Subjective: Patient seen and examined at bedside this AM. Patient moving lower extremities bilaterally when stimulated. Patient had some secretions this morning which were aspirated by nursing. No acute events overnight. Urine culture positive for Pseudomonas. Antibiotics will be adjusted for coverage. Review of Systems - Review of Systems Systems not reviewed;Unavailable: Other (anoxic brain injury) Objective - Vital Signs/Intake and Output Vital Signs (last 24 hours): Vital Signs - 24 hr 09/12/15 09/12/15 09/13/15 14:00 21:13 05:33 Temperature 98 F 98.1 F 99.1 F Pulse Rate 86 98 H 91 H Respiratory 16 19 20 Rate Blood Pressure 137/77 157/91 H 128/69 O2 Sat by Pulse 100 97 99 Oximetry Intake and Output (last 12 hours): Intake & Output 09/12/15 09/13/15 09/13/15 18:59 06:59 18:59 Intake Total 1050 1000 Output Total 900 1150 Balance 150 -150 Intake: Intake, IV Amount 50 Left Wrist 50 Tube Feeding 750 750 Other 250 250 Output: Urine 900 1150 Urethral (Baker) 900 1150 Other: # Bowel Movements 1 1 - Medications Medications: Current Medications Ascorbic Acid (Vitamin C 500 Mg Tab) 500 mg PEG BID [facility] Last Admin: 09/12/15 17:55 Dose: 500 mg Aspirin (Aspirin) 325 mg PO DAILY [facility] Last Admin: 09/12/15 10:40 Dose: 325 mg Clopidogrel Bisulfate (Plavix) 75 mg PO DAILY [facility] Last Admin: 09/12/15 10:40 Dose: 75 mg Piperacillin Sod/Tazobactam (Sod 3.375 gm/ Sodium Chloride) 100 mls @ 200 mls/ hr IVPB Q8H [facility] Lisinopril (Zestril) 5 mg PO DAILY [facility] Last Admin: 09/12/15 10:40 Dose: 5 mg Nystatin (Nystop Topical Powder) 1 applic TOP BID [facility] Last Admin: 09/12/15 17:56 Dose: 1 applic Petrolatum (Desitin Original) 0 gm TOP BID [facility] Last Admin: 09/12/15 17:56 Dose: 1 applic Phenytoin (Dilantin) 100 mg PEG TID [facility] Last Admin: 09/12/15 17:55 Dose: 100 mg Polyethylene Glycol (Miralax) 17 gm PEG BID [facility] Last Admin: 08/21/15 11:26 Dose: Not Given Zinc Sulfate (Zinc Sulfate 220 Mg Cap) 220 mg PEG DAILY [facility] Last Admin: 09/12/15 10:40 Dose: 220 mg - Constitutional Appears: No Acute Distress - Head Exam Head Exam: ATRAUMATIC, NORMAL INSPECTION, NORMOCEPHALIC - Eye Exam Eye Exam: EOMI, Normal appearance, PERRL Pupil Exam: NORMAL ACCOMODATION, PERRL - ENT Exam ENT Exam: Mucous Membranes Moist - Neck Exam Neck exam: Normal Inspection. absent: Full Rom - Respiratory Exam Respiratory Exam: Clear to PA & Lateral. absent: Rales, Rhonchi, Wheezes - Cardiovascular Exam Cardiovascular Exam: REGULAR RHYTHM, +S1 - GI/Abdominal Exam GI & Abdominal Exam: Normal Bowel Sounds, Soft. absent: Distended, Tenderness - Extremities Exam Extremities exam: absent: pedal pulses present - Neurological Exam Neurological exam: absent: Alert - Skin Skin Exam: Normal Color, Warm Assessment/Plan (1) Urinary tract infection Current Visit: Yes Status: Acute Comment: Afebrile with last WBC 13.2 (down from 17.2 day before) Urine culture prelim from 09/11/15 final Pseudomonas Aeruginosa. ID on case- Dr. Armstrong. Patient is s/p baker switch. Stop Rocephin 1 gm IVPB Daily Start Zosyn 3.375 gm IVPB Q8H-- DAY 1. f/u CBC on Thursday09/14/15. Check CBC again on Thursday09/17/15. (2) Anoxic encephalopathy Current Visit: Yes Status: Acute Comment: 09/13: patient on SIMV. Respiratory checking settings. 09/11: [id number] dependent 09/10: Pt. [id number] dependent. No change in mental status. 09/09: Patient awake. No acute changes. PEG feeds 10pm-8am. 09/08: Patient asleep and not responsive to verbal stimuli. NAD. Will continue to monitor. 09/07: Patient asleep, unable to arouse. No acute changes in condition. 09/06: Pt is awake, but only responsive to painful stimuli. Will continue to monitor 09/05: status unchanged, monitor 09/04: cont to monitor, pt unresponsive to verbal commands 10/12: No interval change, cont to monitor 09/02: Continue to monitor. 09/01: Continue to monitor, unchanged status. 08/31: status unchanged, will continue to monitor 08/30: awake and alert, eyes open, 08/29:Pt is more alert, able to open eyes; however, can not respond to verbal commands. will continue to monitor 08/28: Pt more alert today, continues to be unresponsive to verbal stimuli 08/27 No interval change in pt's condition, will continue to monitor 08/26 Patient's status remains the same 08/25 No improvement or change in mental status. Pt not responsive to verbal commands 08/24 Pt not responsive to verbal stimuli, only painful, unable to follow commands, pt continues to have swelling, minimal improvement, will continue to monitor, continue with dietary recommendations 08/22 Spontaneous movement, eyes open. given one dose of Lasix for increased swelling in upper extremities. GT bolus adjusted to dietary recommendations. 08/21 Spontaneous movement, opened eyes during examination. Per wound care nurse , Sabrina, pt is having skin breakdown due to excessive diarrhea. Recommended nystatin powder and sensicare cream to be applied on affected area. Pt's laxatives were removed. Gastric tube feeding will be made into 4 boluses, at 8am , 12pm, 4pm, 8 pm, per dietary recommendations. C diff cultures ordered. (3) Chest congestion Current Visit: Yes Status: Acute Comment: 09/13: No accessory muscle use. No acute distress. 09/12: CXR on 09/12 shows no changes. 09/09: No acute distress. Afebrile. 09/08: Not using accesory muscles. Afebrile. Sputum culture (07/28/15) with Pseudomonas aeruginosa s/p treatment Dr. Armstrong on case-following. (4) Transaminitis Current Visit: Yes Status: Acute Comment: 09/13: Recheck LFTs tomorrow in the AM. 09/12: AST 49, ALT99 and AlK phos 115. Improved. Recheck Q4days. Hep panel negative Continue to monitor LFTs (5) Edema of upper extremity Current Visit: Yes Status: Acute Comment: Venous doppler (07/19) - thrombosis of right cephalic vein (superficial) - please see official report Continue warm compresses Monitor (6) Respiratory failure Current Visit: Yes Status: Acute Comment: Dr. Salgado (pulm) on case-help appreciated Cont patient on trach SIMV. Unable to wean. Monitor (7) STEMI (ST elevation myocardial infarction) Current Visit: Yes Status: Acute Comment: s/p stenting Continue Lisinopril 5mg PO daily Continue Plavix 75mg PO daily Continue ASA 325mg PO daily (8) Seizures Current Visit: Yes Status: Acute Comment: 09/13: No seizure activity. 09/09:Continue current management. 09/01: dilantin level 5.7, continue current management. 08/30--> repeat Dilantin level in am, cont meds, SZ precaution Continue dilantin 100mg via PEG TID Continue to monitor for seizure activity (9) Prophylactic measure Current Visit: Yes Status: Acute Comment: Plavix 75 mg PO daily SCD[facility] <Rashel Rodrigues - Last Filed: 09/13/15 16:11> Objective - Vital Signs/Intake and Output Vital Signs (last 24 hours): Vital Signs - 24 hr 09/12/15 09/13/15 09/13/15 21:13 05:33 13:40 Temperature 98.1 F 99.1 F 97.4 F L Pulse Rate 98 H 91 H 84 Respiratory 19 20 18 Rate Blood Pressure 157/91 H 128/69 O2 Sat by Pulse 97 99 100 Oximetry Intake and Output (last 12 hours): Intake & Output 09/12/15 09/13/15 09/13/15 18:59 06:59 18:59 Intake Total 1050 1000 Output Total 900 1150 500 Balance 150 -150 -500 Intake: Intake, IV Amount 50 Left Wrist 50 Tube Feeding 750 750 Other 250 250 Output: Urine 900 1150 500 Urethral (Baker) 900 1150 500 Other: # Bowel Movements 1 1 - Medications Medications: Current Medications Ascorbic Acid (Vitamin C 500 Mg Tab) 500 mg PEG BID [facility] Last Admin: 09/13/15 10:39 Dose: 500 mg Aspirin (Aspirin) 325 mg PO DAILY [facility] Last Admin: 09/13/15 10:38 Dose: 325 mg Clopidogrel Bisulfate (Plavix) 75 mg PO DAILY [facility] Last Admin: 09/13/15 10:38 Dose: 75 mg Piperacillin Sod/Tazobactam Sod (Zosyn 3.375 Gm Iv Premix) 50 mls @ 100 mls/hr IVPB Q8H [facility] Last Admin: 09/13/15 11:29 Dose: 100 mls/hr Lisinopril (Zestril) 5 mg PO DAILY [facility] Last Admin: 09/13/15 10:38 Dose: 5 mg Nystatin (Nystop Topical Powder) 1 applic TOP BID [facility] Last Admin: 09/13/15 10:40 Dose: 1 applic Petrolatum (Desitin Original) 0 gm TOP BID [facility] Last Admin: 09/13/15 10:40 Dose: 1 applic Phenytoin (Dilantin) 100 mg PEG TID [facility] Last Admin: 09/13/15 13:59 Dose: 100 mg Polyethylene Glycol (Miralax) 17 gm PEG BID [facility] Last Admin: 08/21/15 11:26 Dose: Not Given Zinc Sulfate (Zinc Sulfate 220 Mg Cap) 220 mg PEG DAILY [facility] Last Admin: 09/13/15 10:38 Dose: 220 mg Assessment/Plan (1) Anoxic encephalopathy Current Visit: Yes Status: Acute Comment: 09/13: patient on SIMV. Respiratory checking settings. 09/11: [id number] dependent 09/10: Pt. [id number] dependent. No change in mental status. 09/09: Patient awake. No acute changes. PEG feeds 10pm-8am. 09/08: Patient asleep and not responsive to verbal stimuli. NAD. Will continue to monitor. 09/07: Patient asleep, unable to arouse. No acute changes in condition. 09/06: Pt is awake, but only responsive to painful stimuli. Will continue to monitor 09/05: status unchanged, monitor 09/04: cont to monitor, pt unresponsive to verbal commands 09/03: No interval change, cont to monitor 09/02: Continue to monitor. 09/01: Continue to monitor, unchanged status. 08/31: status unchanged, will continue to monitor 08/30: awake and alert, eyes open, 08/29:Pt is more alert, able to open eyes; however, can not respond to verbal commands. will continue to monitor 08/28: Pt more alert today, continues to be unresponsive to verbal stimuli 08/27 No interval change in pt's condition, will continue to monitor 08/26 Patient's status remains the same 08/25 No improvement or change in mental status. Pt not responsive to verbal commands 10 Pt not responsive to verbal stimuli, only painful, unable to follow commands, pt continues to have swelling, minimal improvement, will continue to monitor, continue with dietary recommendations 08/22 Spontaneous movement, eyes open. given one dose of Lasix for increased swelling in upper extremities. GT bolus adjusted to dietary recommendations. 08/21 Spontaneous movement, opened eyes during examination. Per wound care nurse , Sabrina, pt is having skin breakdown due to excessive diarrhea. Recommended nystatin powder and sensicare cream to be applied on affected area. Pt's laxatives were removed. Gastric tube feeding will be made into 4 boluses, at 8am , 12pm, 4pm, 8 pm, per dietary recommendations. C diff cultures ordered. (2) STEMI (ST elevation myocardial infarction) Current Visit: Yes Status: Acute Comment: s/p stenting Continue Lisinopril 5mg PO daily Continue Plavix 75mg PO daily Continue ASA 325mg PO daily (3) Respiratory failure Current Visit: Yes Status: Acute Comment: Dr. Salgado (pul) on case-help appreciated Cont patient on trach SIMV. Unable to wean. Monitor (4) Seizures Current Visit: Yes Status: Acute Comment: 09/13: No seizure activity. 09/09:Continue current management. 09/01: dilantin level 5.7, continue current management. 08/30--> repeat Dilantin level in am, cont meds, SZ precaution Continue dilantin 100mg via PEG TID Continue to monitor for seizure activity (5) Prophylactic measure Current Visit: Yes Status: Acute Comment: Plavix 75 mg PO daily SCDs Attending/Attestation - Attestation I have personally seen and examined this patient.: Yes I have fully participated in the care of the patient.: Yes I have reviewed all pertinent clinical information: Yes Notes (Text): 09/13/15 16:09 Patient seen and examined during round with residents pt has Pos urien cultures fo Pseudomonas ( UC done after new baker's was placed) will chage ABx to Zosyn and ID eval cont current vent support
[2015-09-13] MEDS: Zinc Oxide Topical 30 gm Tube TOP SCH ×2 (10:40→17:44)
[2015-09-13] MEDS: Piperacill/Tazo 3.375gm in Dex 50 ML IVPB SCH ×2 (11:29→18:31)
[2015-09-14] MEDS: Piperacill/Tazo 3.375gm in Dex 50 ML IVPB SCH ×3 (02:55→18:52)
[2015-09-14 08:09] LABS: BASO % 0.3 % (0.0-2.0); EOS # 2.1 K/uL (0.0-0.7); EOS % 16.2 % (0.0-4.0); HEMOGLOBIN 10.6 g/dL (12.0-18.0); LYMPH % 7.7 % (20.0-40.0); MEAN CELL VOLUME 94.1 fL (80.0-94.0); MEAN CORPUSCULAR HEMOGLOBIN 30.8 pg (27.0-31.0); MEAN CORPUSCULAR HGB CONC 32.7 g/dL (33.0-37.0); MEAN PLATELET VOLUME 8.4 fL (7.2-11.7); MONO % 7.8 % (0.0-10.0); PLATELET COUNT 306 K/uL (130-400); RBC 3.43 Mil/uL (4.40-5.90); RED CELL DISTRIBUTION WIDTH 14.5 % (11.5-14.5); WHITE BLOOD COUNT 13.2 K/uL (4.8-10.8)
[2015-09-14 08:32] LABS: ALBUMIN 2.9 g/dL (3.5-5.0)
[2015-09-14 08:34] LABS: GFR NON-AFRICAN AMERICAN > 60
[2015-09-14 08:35] LABS: ALB/GLOB RATIO 0.7 (1.0-2.1); ALT/SGPT 107 U/L (21-72); AST/SGOT 51 U/L (17-59); BLOOD UREA NITROGEN 18 mg/dL (9-20); CALCIUM 8.2 mg/dL (8.4-10.2)
[2015-09-14 09:40] LABS: EOSINOPHIL 14 % (0-4); LYMPHOCYTE 11 % (20-40); MONOCYTE 9 % (0-10); NEUTROPHIL 66 % (50-75); PLATELET ESTIMATE NORMAL (NORMAL); TOTAL CELLS COUNTED 100
[2015-09-14 09:43] LABS: ANISOCYTOSIS SLIGHT
[2015-09-14 09:44] LABS: HYPOCHROMIC SLIGHT; POIKILOCYTOSIS SLIGHT; TARGET CELLS SLIGHT; TOXIC GRANULATION PRESENT
[2015-09-14] MEDS: Phenytoin 100 mg/4 ml Oral Susp UD PEG SCH ×3 (09:55→16:59)
[2015-09-14] MEDS: Zinc Oxide Topical 30 gm Tube TOP SCH ×2 (09:56→17:00)
--- NOTE | 2015-09-14 11:40 | CP.PCM.PN ---
<Mariella Wagner - Last Filed: 09/14/15 11:36> Subjective - Subjective Subjective: Medicine Progress Note: Patient seen and examined at bedside. Patient trached and on vent. No acute events overnight. Patient is in no acute distress. Patient afebrile overnight. Review of Systems - Review of Systems Systems not reviewed;Unavailable: Other (anoxic brain injury) Objective - Vital Signs/Intake and Output Vital Signs (last 24 hours): Vital Signs - 24 hr 09/13/15 09/13/15 09/14/15 13:40 21:01 05:40 Temperature 97.4 F L 98.7 F 98.2 F Pulse Rate 84 89 86 Respiratory 18 24 20 Rate Blood Pressure 129/83 112/67 O2 Sat by Pulse 100 100 100 Oximetry 09/14/15 08:55 Temperature Pulse Rate 86 Respiratory Rate Blood Pressure O2 Sat by Pulse Oximetry Intake and Output (last 12 hours): Intake & Output 09/13/15 09/14/15 09/14/15 18:59 06:59 18:59 Intake Total 1100 Output Total 500 590 Balance -500 510 Intake: Intake, IV Amount 100 Left Wrist 100 Tube Feeding 750 Other 250 Output: Urine 500 590 Urethral (Baker) 500 590 - Medications Medications: Current Medications Ascorbic Acid (Vitamin C 500 Mg Tab) 500 mg PEG BID [facility] Last Admin: 09/14/15 09:55 Dose: 500 mg Aspirin (Aspirin) 325 mg PO DAILY [facility] Last Admin: 09/14/15 09:55 Dose: 325 mg Clopidogrel Bisulfate (Plavix) 75 mg PO DAILY [facility] Last Admin: 09/14/15 09:55 Dose: 75 mg Piperacillin Sod/Tazobactam Sod (Zosyn 3.375 Gm Iv Premix) 50 mls @ 100 mls/hr IVPB Q8H [facility] Last Admin: 09/14/15 10:41 Dose: 100 mls/hr Lisinopril (Zestril) 5 mg PO DAILY [facility] Last Admin: 09/14/15 09:56 Dose: 5 mg Nystatin (Nystop Topical Powder) 1 applic TOP BID [facility] Last Admin: 09/14/15 09:56 Dose: 1 applic Petrolatum (Desitin Original) 0 gm TOP BID [facility] Last Admin: 09/14/15 09:56 Dose: 1 applic Phenytoin (Dilantin) 100 mg PEG TID [facility] Last Admin: 09/14/15 09:55 Dose: 100 mg Polyethylene Glycol (Miralax) 17 gm PEG BID [facility] Last Admin: 08/21/15 11:26 Dose: Not Given Zinc Sulfate (Zinc Sulfate 220 Mg Cap) 220 mg PEG DAILY [facility] Last Admin: 09/14/15 09:55 Dose: 220 mg - Labs Labs (last 24 hours): Laboratory Results - last 24 hr 09/14/15 07:59 WBC 13.2 H RBC 3.43 L Hgb 10.6 L Hct 32.3 L MCV 94.1 H MCH 30.8 MCHC 32.7 L RDW 14.5 Plt Count 306 MPV 8.4 Neut % (Auto) 68.0 Lymph % (Auto) 7.7 L Sargent % (Auto) 7.8 Eos % (Auto) 16.2 H Baso % (Auto) 0.3 Neut # 9.0 H Lymph # 1.0 Sargent # 1.0 H Eos # 2.1 H Baso # 0.0 Neutrophils % (Manual) 66 Lymphocytes % (Manual) 11 L Monocytes % (Manual) 9 Eosinophils % (Manual) 14 H Toxic Granulation Present Platelet Estimate Normal Hypochromasia (manual) Slight Poikilocytosis (manual Slight Anisocytosis (manual) Slight Target Cells Slight Sodium 138 Potassium 4.2 Chloride 100 Carbon Dioxide 31 H Anion Gap 11 BUN 18 Creatinine 0.5 L Est GFR ( Amer) > 60 Est GFR (Non-Af Amer) > 60 Random Glucose 155 H Calcium 8.2 L Phosphorus 4.3 Magnesium 2.2 Total Bilirubin 0.4 AST 51 ALT 107 H Alkaline Phosphatase 118 Total Protein 6.9 Albumin 2.9 L Globulin 4.0 H Albumin/Globulin Ratio 0.7 L - Constitutional Appears: No Acute Distress - Head Exam Head Exam: NORMAL INSPECTION, NORMOCEPHALIC - Eye Exam Eye Exam: Normal appearance Pupil Exam: PERRL - ENT Exam ENT Exam: Mucous Membranes Moist - Neck Exam Neck exam: Normal Inspection. absent: Full Rom - Respiratory Exam Respiratory Exam: Clear to PA & Lateral. absent: Rales, Rhonchi, Wheezes - Cardiovascular Exam Cardiovascular Exam: REGULAR RHYTHM, +S1, +S2 - GI/Abdominal Exam GI & Abdominal Exam: Normal Bowel Sounds, Soft. absent: Distended, Tenderness - Extremities Exam Extremities exam: pedal pulses present. absent: pedal edema - Neurological Exam Neurological exam: Altered Assessment/Plan (1) Urinary tract infection Current Visit: Yes Status: Acute Comment: Afebrile. WBC today is 13.2 (down from 17.2 day before) Urine culture 09/11/15 final + Pseudomonas Aeruginosa. ID on case- Dr. Armstrong. Patient is s/p baker switch. Continue Zosyn 3.375 gm IVPB Q8H-- DAY 2. Check CBC again on Thursday09/17/15. (2) Anoxic encephalopathy Current Visit: Yes Status: Acute Comment: 09/14: patient on SIMV. No acute distress. 09/11: [id number] dependent 09/10: Pt. [id number] dependent. No change in mental status. 09/09: Patient awake. No acute changes. PEG feeds 10pm-8am. 09/08: Patient asleep and not responsive to verbal stimuli. NAD. Will continue to monitor. 09/07: Patient asleep, unable to arouse. No acute changes in condition. 09/06: Pt is awake, but only responsive to painful stimuli. Will continue to monitor 09/05: status unchanged, monitor 09/04: cont to monitor, pt unresponsive to verbal commands 09/03: No interval change, cont to monitor 09/02: Continue to monitor. 09/01: Continue to monitor, unchanged status. 08/31: status unchanged, will continue to monitor 08/30: awake and alert, eyes open, 08/29:Pt is more alert, able to open eyes; however, can not respond to verbal commands. will continue to monitor 08/28: Pt more alert today, continues to be unresponsive to verbal stimuli 08/27 No interval change in pt's condition, will continue to monitor 08/26 Patient's status remains the same 08/25 No improvement or change in mental status. Pt not responsive to verbal commands 08/24 Pt not responsive to verbal stimuli, only painful, unable to follow commands, pt continues to have swelling, minimal improvement, will continue to monitor, continue with dietary recommendations 08/22 Spontaneous movement, eyes open. given one dose of Lasix for increased swelling in upper extremities. GT bolus adjusted to dietary recommendations. 08/21 Spontaneous movement, opened eyes during examination. Per wound care nurse Sabrina, pt is having skin breakdown due to excessive diarrhea. Recommended nystatin powder and sensicare cream to be applied on affected area. Pt's laxatives were removed. Gastric tube feeding will be made into 4 boluses, at 8am , 12pm, 4pm, 8 pm, per dietary recommendations. C diff cultures ordered. (3) Chest congestion Current Visit: Yes Status: Acute Comment: 09/14: Clear to auscultation. No acute distress. 09/12: CXR on 09/12 shows no changes. 09/09: No acute distress. Afebrile. 09/08: Not using accesory muscles. Afebrile. Sputum culture (07/28/15) with Pseudomonas aeruginosa s/p treatment Dr. Armstrong on case-following. (4) Transaminitis Current Visit: Yes Status: Acute Comment: 09/14: AST 51, ALT 107 and AlK phos 118. Stable. 09/12: AST 49, ALT 99 and AlK phos 115. Improved. Recheck Q4days. Hep panel negative Continue to monitor LFTs (5) Edema of upper extremity Current Visit: Yes Status: Acute Comment: Venous doppler (07/19) - thrombosis of right cephalic vein (superficial) - please see official report Continue warm compresses Monitor (6) Respiratory failure Current Visit: Yes Status: Acute Comment: Dr. Salgado (pul) on case-help appreciated Cont patient on trach SIMV. Unable to wean. Monitor (7) STEMI (ST elevation myocardial infarction) Current Visit: Yes Status: Acute Comment: s/p stenting Continue Lisinopril 5mg PO daily Continue Plavix 75mg PO daily Continue ASA 325mg PO daily (8) Seizures Current Visit: Yes Status: Acute Comment: 09/14: No seizure activity. 09/09:Continue current management. 09/01: dilantin level 5.7, continue current management. 08/30--> repeat Dilantin level in am, cont meds, SZ precaution Continue dilantin 100mg via PEG TID Continue to monitor for seizure activity (9) Deep tissue injury Current Visit: Yes Status: Acute Comment: Cont wound care Qshift As per wound care, apply aloe vesta protective ointment daily as a protective measure. Continue body checks. (10) Prophylactic measure Current Visit: Yes Status: Acute Comment: Plavix 75 mg PO daily [facility] <RaviRashel - Last Filed: 09/14/15 17:19> Objective - Vital Signs/Intake and Output Vital Signs (last 24 hours): Vital Signs - 24 hr 09/13/15 09/14/15 09/14/15 21:01 05:40 08:55 Temperature 98.7 F 98.2 F Pulse Rate 89 86 86 Respiratory 24 20 Rate Blood Pressure 129/83 112/67 O2 Sat by Pulse 100 100 Oximetry 09/14/15 14:23 Temperature 97.9 F Pulse Rate 96 H Respiratory 20 Rate Blood Pressure 105/70 O2 Sat by Pulse 100 Oximetry Intake and Output (last 12 hours): Intake & Output 09/13/15 09/14/15 09/14/15 18:59 06:59 18:59 Intake Total 1100 Output Total 500 590 Balance -500 510 Intake: Intake, IV Amount 100 Left Wrist 100 Tube Feeding 750 Other 250 Output: Urine 500 590 Urethral (Baker) 500 590 - Medications Medications: Current Medications Ascorbic Acid (Vitamin C 500 Mg Tab) 500 mg PEG BID [facility] Last Admin: 09/14/15 17:00 Dose: 500 mg Aspirin (Aspirin) 325 mg PO DAILY [facility] Last Admin: 09/14/15 09:55 Dose: 325 mg Clopidogrel Bisulfate (Plavix) 75 mg PO DAILY [facility] Last Admin: 09/14/15 09:55 Dose: 75 mg Piperacillin Sod/Tazobactam Sod (Zosyn 3.375 Gm Iv Premix) 50 mls @ 100 mls/hr IVPB Q8H [facility] Last Admin: 09/14/15 10:41 Dose: 100 mls/hr Lisinopril (Zestril) 5 mg PO DAILY [facility] Last Admin: 09/14/15 09:56 Dose: 5 mg Nystatin (Nystop Topical Powder) 1 applic TOP BID [facility] Last Admin: 09/14/15 17:00 Dose: 1 applic Petrolatum (Desitin Original) 0 gm TOP BID [facility] Last Admin: 09/14/15 17:00 Dose: 1 applic Phenytoin (Dilantin) 100 mg PEG TID [facility] Last Admin: 09/14/15 16:59 Dose: 100 mg Polyethylene Glycol (Miralax) 17 gm PEG BID [facility] Last Admin: 08/21/15 11:26 Dose: Not Given - Labs Labs (last 24 hours): Laboratory Results - last 24 hr 09/14/15 07:59 WBC 13.2 H RBC 3.43 L Hgb 10.6 L Hct 32.3 L MCV 94.1 H MCH 30.8 MCHC 32.7 L RDW 14.5 Plt Count 306 MPV 8.4 Neut % (Auto) 68.0 Lymph % (Auto) 7.7 L Sargent % (Auto) 7.8 Eos % (Auto) 16.2 H Baso % (Auto) 0.3 Neut # 9.0 H Lymph # 1.0 Sargent # 1.0 H Eos # 2.1 H Baso # 0.0 Neutrophils % (Manual) 66 Lymphocytes % (Manual) 11 L Monocytes % (Manual) 9 Eosinophils % (Manual) 14 H Toxic Granulation Present Platelet Estimate Normal Hypochromasia (manual) Slight Poikilocytosis (manual Slight Anisocytosis (manual) Slight Target Cells Slight Sodium 138 Potassium 4.2 Chloride 100 Carbon Dioxide 31 H Anion Gap 11 BUN 18 Creatinine 0.5 L Est GFR ( Amer) > 60 Est GFR (Non-Af Amer) > 60 Random Glucose 155 H Calcium 8.2 L Phosphorus 4.3 Magnesium 2.2 Total Bilirubin 0.4 AST 51 ALT 107 H Alkaline Phosphatase 118 Total Protein 6.9 Albumin 2.9 L Globulin 4.0 H Albumin/Globulin Ratio 0.7 L Assessment/Plan (1) Anoxic encephalopathy Current Visit: Yes Status: Acute Comment: 09/14: patient on SIMV. No acute distress. 09/11: [id number]-[id number] dependent 09/10: Pt. [id number]-[id number] dependent. No change in mental status. 09/09: Patient awake. No acute changes. PEG feeds 10pm-8am. 09/08: Patient asleep and not responsive to verbal stimuli. NAD. Will continue to monitor. 09/07: Patient asleep, unable to arouse. No acute changes in condition. 09/06: Pt is awake, but only responsive to painful stimuli. Will continue to monitor 09/05: status unchanged, monitor 09/04: cont to monitor, pt unresponsive to verbal commands 09/03: No interval change, cont to monitor 09/02: Continue to monitor. 09/01: Continue to monitor, unchanged status. 08/31: status unchanged, will continue to monitor 08/30: awake and alert, eyes open, 08/29:Pt is more alert, able to open eyes; however, can not respond to verbal commands. will continue to monitor 08/28: Pt more alert today, continues to be unresponsive to verbal stimuli 08/27 No interval change in pt's condition, will continue to monitor 08/26 Patient's status remains the same 08/25 No improvement or change in mental status. Pt not responsive to verbal commands 08/24 Pt not responsive to verbal stimuli, only painful, unable to follow commands, pt continues to have swelling, minimal improvement, will continue to monitor, continue with dietary recommendations 08/22 Spontaneous movement, eyes open. given one dose of Lasix for increased swelling in upper extremities. GT bolus adjusted to dietary recommendations. 08/21 Spontaneous movement, opened eyes during examination. Per wound care nurse , Sabrina, pt is having skin breakdown due to excessive diarrhea. Recommended nystatin powder and sensicare cream to be applied on affected area. Pt's laxatives were removed. Gastric tube feeding will be made into 4 boluses, at 8am , 12pm, 4pm, 8 pm, per dietary recommendations. C diff cultures ordered. (2) STEMI (ST elevation myocardial infarction) Current Visit: Yes Status: Acute Comment: s/p stenting Continue Lisinopril 5mg PO daily Continue Plavix 75mg PO daily Continue ASA 325mg PO daily (3) Respiratory failure Current Visit: Yes Status: Acute Comment: Dr. Salgado (pul) on case-help appreciated Cont patient on trach SIMV. Unable to wean. Monitor (4) Seizures Current Visit: Yes Status: Acute Comment: 09/14: No seizure activity. 09/09:Continue current management. 09/01: dilantin level 5.7, continue current management. 08/30--> repeat Dilantin level in am, cont meds, SZ precaution Continue dilantin 100mg via PEG TID Continue to monitor for seizure activity (5) Prophylactic measure Current Visit: Yes Status: Acute Comment: Plavix 75 mg PO daily [facility] Attending/Attestation - Attestation I have personally seen and examined this patient.: Yes I have fully participated in the care of the patient.: Yes I have reviewed all pertinent clinical information: Yes Notes (Text): 09/14/15 17:18 Patient seen and examined during round with residents pt has no new events cont vent support, cont IV ABx
--- NOTE | 2015-09-15 00:09 | CP.PCM.PN ---
<Sandra Mercedes - Last Filed: 09/15/15 00:06> Subjective - Subjective Subjective: Pt seen and examined. Pt is awake and moving his eyes. Pt is unresponsive to verbal stimuli. Pt is on a vent. Unable to obtain ROS. Review of Systems - Review of Systems Systems not reviewed;Unavailable: Altered Mental Status Objective - Vital Signs/Intake and Output Vital Signs (last 24 hours): Vital Signs - 24 hr 09/14/15 09/14/15 09/14/15 05:40 08:55 14:23 Temperature 98.2 F 97.9 F Pulse Rate 86 86 96 H Respiratory 20 20 Rate Blood Pressure 112/67 105/70 O2 Sat by Pulse 100 100 Oximetry 09/14/15 21:04 Temperature 98.6 F Pulse Rate 78 Respiratory 20 Rate Blood Pressure 114/70 O2 Sat by Pulse 100 Oximetry Intake and Output (last 12 hours): Intake & Output 09/14/15 09/14/15 09/15/15 06:59 18:59 06:59 Intake Total 1100 1300 Output Total 590 1575 Balance 510 1300 -1575 Intake: Intake, IV Amount 100 100 Left Wrist 100 100 Tube Feeding 750 800 Other 250 400 Output: Urine 590 1575 Urethral (Yoo) 590 1575 Other: # Bowel Movements 1 - Medications Medications: Current Medications Aspirin (Aspirin) 325 mg PO DAILY [facility] Last Admin: 09/14/15 09:55 Dose: 325 mg Clopidogrel Bisulfate (Plavix) 75 mg PO DAILY [facility] Last Admin: 09/14/15 09:55 Dose: 75 mg Piperacillin Sod/Tazobactam Sod (Zosyn 3.375 Gm Iv Premix) 50 mls @ 100 mls/hr IVPB Q8H [facility] Last Admin: 09/14/15 18:52 Dose: 100 mls/hr Lisinopril (Zestril) 5 mg PO DAILY [facility] Last Admin: 09/14/15 09:56 Dose: 5 mg Nystatin (Nystop Topical Powder) 1 applic TOP BID [facility] Last Admin: 09/14/15 17:00 Dose: 1 applic Petrolatum (Desitin Original) 0 gm TOP BID [facility] Last Admin: 09/14/15 17:00 Dose: 1 applic Phenytoin (Dilantin) 100 mg PEG TID [facility] Last Admin: 09/14/15 16:59 Dose: 100 mg Polyethylene Glycol (Miralax) 17 gm PEG BID [facility] Last Admin: 08/21/15 11:26 Dose: Not Given - Labs Labs (last 24 hours): Laboratory Results - last 24 hr 09/14/15 07:59 WBC 13.2 H RBC 3.43 L Hgb 10.6 L Hct 32.3 L MCV 94.1 H MCH 30.8 MCHC 32.7 L RDW 14.5 Plt Count 306 MPV 8.4 Neut % (Auto) 68.0 Lymph % (Auto) 7.7 L Grant % (Auto) 7.8 Eos % (Auto) 16.2 H Baso % (Auto) 0.3 Neut # 9.0 H Lymph # 1.0 Grant # 1.0 H Eos # 2.1 H Baso # 0.0 Neutrophils % (Manual) 66 Lymphocytes % (Manual) 11 L Monocytes % (Manual) 9 Eosinophils % (Manual) 14 H Toxic Granulation Present Platelet Estimate Normal Hypochromasia (manual) Slight Poikilocytosis (manual Slight Anisocytosis (manual) Slight Target Cells Slight Sodium 138 Potassium 4.2 Chloride 100 Carbon Dioxide 31 H Anion Gap 11 BUN 18 Creatinine 0.5 L Est GFR ( Amer) > 60 Est GFR (Non-Af Amer) > 60 Random Glucose 155 H Calcium 8.2 L Phosphorus 4.3 Magnesium 2.2 Total Bilirubin 0.4 AST 51 ALT 107 H Alkaline Phosphatase 118 Total Protein 6.9 Albumin 2.9 L Globulin 4.0 H Albumin/Globulin Ratio 0.7 L - Constitutional Appears: Cachectic, Chronically Ill - Head Exam Head Exam: NORMAL INSPECTION - Eye Exam Eye Exam: Normal appearance, PERRL Pupil Exam: PERRL - Respiratory Exam Respiratory Exam: Clear to PA & Lateral, NORMAL BREATHING PATTERN - Cardiovascular Exam Cardiovascular Exam: REGULAR RHYTHM, +S1, +S2 - GI/Abdominal Exam GI & Abdominal Exam: Hypoactive Bowel Sounds, Soft - Neurological Exam Neurological exam: Altered - Skin Skin Exam: Dry, Normal Color Assessment/Plan (1) Anoxic encephalopathy Assessment and plan: Current Visit: Yes Status: Acute Comment: 09/15: Pt awake, on vent, no change in mental status 09/14: patient on SIMV. No acute distress. 09/11: [id number]-xd-fenn dependent 09/10: Pt. sepue-nk-xxax dependent. No change in mental status. 09/09: Patient awake. No acute changes. PEG feeds 10pm-8am. 09/08: Patient asleep and not responsive to verbal stimuli. NAD. Will continue to monitor. 09/07: Patient asleep, unable to arouse. No acute changes in condition. 09/06: Pt is awake, but only responsive to painful stimuli. Will continue to monitor 09/05: status unchanged, monitor 09/04: cont to monitor, pt unresponsive to verbal commands 09/03: No interval change, cont to monitor 09/02: Continue to monitor. 09/01: Continue to monitor, unchanged status. 08/31: status unchanged, will continue to monitor 08/30: awake and alert, eyes open, 08/29:Pt is more alert, able to open eyes; however, can not respond to verbal commands. will continue to monitor 08/28: Pt more alert today, continues to be unresponsive to verbal stimuli 08/27 No interval change in pt's condition, will continue to monitor 08/26 Patient's status remains the same 08/25 No improvement or change in mental status. Pt not responsive to verbal commands 08/24 Pt not responsive to verbal stimuli, only painful, unable to follow commands, pt continues to have swelling, minimal improvement, will continue to monitor, continue with dietary recommendations 08/22 Spontaneous movement, eyes open. given one dose of Lasix for increased swelling in upper extremities. GT bolus adjusted to dietary recommendations. 08/21 Spontaneous movement, opened eyes during examination. Per wound care nurse Sabrina, pt is having skin breakdown due to excessive diarrhea. Recommended nystatin powder and sensicare cream to be applied on affected area. Pt's laxatives were removed. Gastric tube feeding will be made into 4 boluses, at 8am , 12pm, 4pm, 8 pm, per dietary recommendations. C diff cultures ordered. (2) Chest congestion Current Visit: Yes Status: Acute Comment: 09/15: No change 09/14: Clear to auscultation. No acute distress. 09/12: CXR on 09/12 shows no changes. 09/09: No acute distress. Afebrile. 09/08: Not using accesory muscles. Afebrile. Sputum culture (07/28/15) with Pseudomonas aeruginosa s/p treatment Dr. Armstrong on case-following. (3) Transaminitis Current Visit: Yes Status: Acute Comment: 09/14: AST 51, ALT 107 and AlK phos 118. Stable. 09/12: AST 49, ALT 99 and AlK phos 115. Improved. Recheck Q4days. Hep panel negative Continue to monitor LFTs (4) Thrombophlebitis of superficial veins of upper extremities Current Visit: Yes Status: Acute Comment: Venous doppler (07/19) prelim report - thrombosis of right cephalic vein (superficial) Shows Abnormality Lovenox 40mg SC daily Warm compresses to area 15 minutes, 3x a day f/u final venous doppler report (5) Edema of upper extremity Current Visit: Yes Status: Acute Comment: Venous doppler (07/19) - thrombosis of right cephalic vein (superficial) - please see official report Continue warm compresses Monitor (6) Respiratory failure Current Visit: Yes Status: Acute Comment: Dr. Salgado (pul) on case-help appreciated Cont patient on trach SIMV. Unable to wean. Monitor (7) STEMI (ST elevation myocardial infarction) Current Visit: Yes Status: Acute Comment: s/p stenting Continue Lisinopril 5mg PO daily Continue Plavix 75mg PO daily Continue ASA 325mg PO daily (8) Seizures Current Visit: Yes Status: Acute Comment: 09/14: No seizure activity. 09/09:Continue current management. 09/01: dilantin level 5.7, continue current management. 08/30--> repeat Dilantin level in am, cont meds, SZ precaution Continue dilantin 100mg via PEG TID Continue to monitor for seizure activity (9) Prophylactic measure Current Visit: Yes Status: Acute Comment: Plavix 75 mg PO daily [facility] <Rashel Rodrigues - Last Filed: 09/15/15 13:19> Objective - Vital Signs/Intake and Output Vital Signs (last 24 hours): Vital Signs - 24 hr 09/14/15 09/14/15 09/15/15 14:23 21:04 05:46 Temperature 97.9 F 98.6 F 98.6 F Pulse Rate 96 H 78 86 Respiratory 20 20 20 Rate Blood Pressure 105/70 114/70 128/80 O2 Sat by Pulse 100 100 100 Oximetry Intake and Output (last 12 hours): Intake & Output 09/14/15 09/15/15 09/15/15 18:59 06:59 18:59 Intake Total 1300 Output Total 1875 Balance 1300 -1875 Intake: Intake, IV Amount 100 Left Wrist 100 Tube Feeding 800 Other 400 Output: Urine 1874 Urethral (Yoo) 1874 Other: # Bowel Movements 1 - Medications Medications: Current Medications Aspirin (Aspirin) 325 mg PO DAILY [facility] Last Admin: 09/15/15 09:33 Dose: 325 mg Clopidogrel Bisulfate (Plavix) 75 mg PO DAILY [facility] Last Admin: 09/15/15 09:32 Dose: 75 mg Piperacillin Sod/Tazobactam Sod (Zosyn 3.375 Gm Iv Premix) 50 mls @ 100 mls/hr IVPB Q8H [facility] Last Admin: 09/15/15 13:06 Dose: 100 mls/hr Lisinopril (Zestril) 5 mg PO DAILY [facility] Last Admin: 09/15/15 09:33 Dose: 5 mg Nystatin (Nystop Topical Powder) 1 applic TOP BID [facility] Last Admin: 09/15/15 09:34 Dose: 1 applic Petrolatum (Desitin Original) 0 gm TOP BID [facility] Last Admin: 09/15/15 09:33 Dose: 1 applic Phenytoin (Dilantin) 100 mg PEG TID [facility] Last Admin: 09/15/15 13:06 Dose: 100 mg Polyethylene Glycol (Miralax) 17 gm PEG BID [facility] Last Admin: 08/21/15 11:26 Dose: Not Given Assessment/Plan (1) Anoxic encephalopathy Current Visit: Yes Status: Acute Comment: 09/15: Pt awake, on vent, no change in mental status 09/14: patient on SIMV. No acute distress. 09/11: totuv-zn-ibgl dependent 09/10: Pt. tcbqv-py-jkxs dependent. No change in mental status. 09/09: Patient awake. No acute changes. PEG feeds 10pm-8am. 09/08: Patient asleep and not responsive to verbal stimuli. NAD. Will continue to monitor. 09/07: Patient asleep, unable to arouse. No acute changes in condition. 09/06: Pt is awake, but only responsive to painful stimuli. Will continue to monitor 09/05: status unchanged, monitor 09/04: cont to monitor, pt unresponsive to verbal commands 09/03: No interval change, cont to monitor 09/02: Continue to monitor. 09/01: Continue to monitor, unchanged status. 08/31: status unchanged, will continue to monitor 08/30: awake and alert, eyes open, 08/29:Pt is more alert, able to open eyes; however, can not respond to verbal commands. will continue to monitor 08/28: Pt more alert today, continues to be unresponsive to verbal stimuli 08/27 No interval change in pt's condition, will continue to monitor 08/26 Patient's status remains the same 08/25 No improvement or change in mental status. Pt not responsive to verbal commands 08/24 Pt not responsive to verbal stimuli, only painful, unable to follow commands, pt continues to have swelling, minimal improvement, will continue to monitor, continue with dietary recommendations 08/22 Spontaneous movement, eyes open. given one dose of Lasix for increased swelling in upper extremities. GT bolus adjusted to dietary recommendations. 08/21 Spontaneous movement, opened eyes during examination. Per wound care nurse Sabrina, pt is having skin breakdown due to excessive diarrhea. Recommended nystatin powder and sensicare cream to be applied on affected area. Pt's laxatives were removed. Gastric tube feeding will be made into 4 boluses, at 8am , 12pm, 4pm, 8 pm, per dietary recommendations. C diff cultures ordered. (2) STEMI (ST elevation myocardial infarction) Current Visit: Yes Status: Acute Comment: s/p stenting Continue Lisinopril 5mg PO daily Continue Plavix 75mg PO daily Continue ASA 325mg PO daily (3) Respiratory failure Current Visit: Yes Status: Acute Comment: Dr. Salgado (pul) on case-help appreciated Cont patient on trach SIMV. Unable to wean. Monitor (4) Seizures Current Visit: Yes Status: Acute Comment: 09/14: No seizure activity. 09/09:Continue current management. 09/01: dilantin level 5.7, continue current management. 08/30--> repeat Dilantin level in am, cont meds, SZ precaution Continue dilantin 100mg via PEG TID Continue to monitor for seizure activity (5) Prophylactic measure Current Visit: Yes Status: Acute Comment: Plavix 75 mg PO daily [facility] Attending/Attestation - Attestation I have personally seen and examined this patient.: Yes I have fully participated in the care of the patient.: Yes I have reviewed all pertinent clinical information: Yes
[2015-09-15] MEDS: Piperacill/Tazo 3.375gm in Dex 50 ML IVPB SCH ×3 (03:15→20:42)
[2015-09-15] MEDS: Phenytoin 100 mg/4 ml Oral Susp UD PEG SCH ×3 (09:32→17:15)
[2015-09-15] MEDS: Zinc Oxide Topical 30 gm Tube TOP SCH ×2 (09:33→17:19)
--- NOTE | 2015-09-16 02:26 | CP.PCM.PN ---
<Sandra Mercedes - Last Filed: 09/16/15 02:24> Subjective - Subjective Subjective: Pt seen and examined. Pt is on vent. Pt is awake and moving eyes. Pt does not respond to verbal commands. Unable to obtain ROS. Review of Systems - Review of Systems Systems not reviewed;Unavailable: Altered Mental Status Objective - Vital Signs/Intake and Output Vital Signs (last 24 hours): Vital Signs - 24 hr 09/15/15 09/15/15 09/15/15 05:46 14:10 22:01 Temperature 98.6 F 98.4 F 97.2 F L Pulse Rate 86 78 87 Respiratory 20 20 19 Rate Blood Pressure 128/80 115/74 110/76 O2 Sat by Pulse 100 100 99 Oximetry Intake and Output (last 12 hours): Intake & Output 09/15/15 09/15/15 09/16/15 06:59 18:59 06:59 Output Total 1875 600 Balance -1875 -600 Output: Urine 1875 600 Urethral (Yoo) 1875 600 - Medications Medications: Current Medications Aspirin (Aspirin) 325 mg PO DAILY [facility] Last Admin: 09/15/15 09:33 Dose: 325 mg Clopidogrel Bisulfate (Plavix) 75 mg PO DAILY [facility] Last Admin: 09/15/15 09:32 Dose: 75 mg Piperacillin Sod/Tazobactam Sod (Zosyn 3.375 Gm Iv Premix) 50 mls @ 100 mls/hr IVPB Q8H [facility] Last Admin: 09/15/15 20:42 Dose: 100 mls/hr Lisinopril (Zestril) 5 mg PO DAILY [facility] Last Admin: 09/15/15 09:33 Dose: 5 mg Nystatin (Nystop Topical Powder) 1 applic TOP BID [facility] Last Admin: 09/15/15 17:16 Dose: 1 applic Petrolatum (Desitin Original) 0 gm TOP BID [facility] Last Admin: 09/15/15 17:19 Dose: 1 applic Phenytoin (Dilantin) 100 mg PEG TID [facility] Last Admin: 09/15/15 17:15 Dose: 100 mg Polyethylene Glycol (Miralax) 17 gm PEG BID [facility] Last Admin: 08/21/15 11:26 Dose: Not Given - Constitutional Appears: Cachectic, Chronically Ill - Head Exam Head Exam: NORMAL INSPECTION - Eye Exam Eye Exam: Normal appearance Pupil Exam: PERRL - Respiratory Exam Respiratory Exam: Clear to PA & Lateral, NORMAL BREATHING PATTERN - Cardiovascular Exam Cardiovascular Exam: REGULAR RHYTHM, +S1, +S2 - GI/Abdominal Exam GI & Abdominal Exam: Normal Bowel Sounds, Soft - Extremities Exam Extremities exam: pedal pulses present - Neurological Exam Neurological exam: Altered - Skin Skin Exam: Dry, Normal Color Assessment/Plan (1) Anoxic encephalopathy Assessment and plan: Current Visit: Yes Status: Acute Comment: 09/16: On vent, no change, continue to monitor 09/15: Pt awake, on vent, no change in mental status 09/14: patient on SIMV. No acute distress. 09/11: yqlly-lr-nxkn dependent 09/10: Pt. hottv-ec-oeas dependent. No change in mental status. 09/09: Patient awake. No acute changes. PEG feeds 10pm-8am. 09/08: Patient asleep and not responsive to verbal stimuli. NAD. Will continue to monitor. 09/07: Patient asleep, unable to arouse. No acute changes in condition. 09/06: Pt is awake, but only responsive to painful stimuli. Will continue to monitor 09/05: status unchanged, monitor 09/04: cont to monitor, pt unresponsive to verbal commands 09/03: No interval change, cont to monitor 09/02: Continue to monitor. 09/01: Continue to monitor, unchanged status. 08/31: status unchanged, will continue to monitor 08/30: awake and alert, eyes open, 08/29:Pt is more alert, able to open eyes; however, can not respond to verbal commands. will continue to monitor 08/28: Pt more alert today, continues to be unresponsive to verbal stimuli 08/27 No interval change in pt's condition, will continue to monitor 08/26 Patient's status remains the same 08/25 No improvement or change in mental status. Pt not responsive to verbal commands 08/24 Pt not responsive to verbal stimuli, only painful, unable to follow commands, pt continues to have swelling, minimal improvement, will continue to monitor, continue with dietary recommendations 08/22 Spontaneous movement, eyes open. given one dose of Lasix for increased swelling in upper extremities. GT bolus adjusted to dietary recommendations. 08/21 Spontaneous movement, opened eyes during examination. Per wound care nurse , Sabrina, pt is having skin breakdown due to excessive diarrhea. Recommended nystatin powder and sensicare cream to be applied on affected area. Pt's laxatives were removed. Gastric tube feeding will be made into 4 boluses, at 8am , 12pm, 4pm, 8 pm, per dietary recommendations. C diff cultures ordered. (2) Chest congestion Current Visit: Yes Status: Acute Comment: 09/16: Lungs clear bilaterally 09/15: No change 09/14: Clear to auscultation. No acute distress. 09/12: CXR on 09/12 shows no changes. 09/09: No acute distress. Afebrile. 09/08: Not using accesory muscles. Afebrile. Sputum culture (07/28/15) with Pseudomonas aeruginosa s/p treatment Dr. Armstrong on case-following. (3) Transaminitis Current Visit: Yes Status: Acute Comment: 09/14: AST 51, ALT 107 and AlK phos 118. Stable. 09/12: AST 49, ALT 99 and AlK phos 115. Improved. Recheck Q4days. Hep panel negative Continue to monitor LFTs (4) Thrombophlebitis of superficial veins of upper extremities Current Visit: Yes Status: Acute Comment: Venous doppler (07/19) prelim report - thrombosis of right cephalic vein (superficial) Shows Abnormality Lovenox 40mg SC daily Warm compresses to area 15 minutes, 3x a day f/u final venous doppler report (5) Edema of upper extremity Current Visit: Yes Status: Acute Comment: Venous doppler (07/19) - thrombosis of right cephalic vein (superficial) - please see official report Continue warm compresses Monitor (6) Respiratory failure Current Visit: Yes Status: Acute Comment: Dr. Salgado (pulm) on case-help appreciated Cont patient on trach SIMV. Unable to wean. Monitor (7) STEMI (ST elevation myocardial infarction) Current Visit: Yes Status: Acute Comment: s/p stenting Continue Lisinopril 5mg PO daily Continue Plavix 75mg PO daily Continue ASA 325mg PO daily (8) Seizures Current Visit: Yes Status: Acute Comment: 09/14: No seizure activity. 09/09:Continue current management. 09/01: dilantin level 5.7, continue current management. 08/30--> repeat Dilantin level in am, cont meds, SZ precaution Continue dilantin 100mg via PEG TID Continue to monitor for seizure activity (9) Prophylactic measure Current Visit: Yes Status: Acute Comment: Plavix 75 mg PO daily [facility] <Rashel Rodrigues - Last Filed: 09/16/15 14:14> Objective - Vital Signs/Intake and Output Vital Signs (last 24 hours): Vital Signs - 24 hr 09/15/15 09/16/15 22:01 05:36 Temperature 97.2 F L 98.6 F Pulse Rate 87 86 Respiratory 19 20 Rate Blood Pressure 110/76 161/81 H O2 Sat by Pulse 99 100 Oximetry Intake and Output (last 12 hours): Intake & Output 09/15/15 09/16/15 09/16/15 18:59 06:59 18:59 Output Total 925 Balance -925 Output: Urine 925 Urethral (Yoo) 925 - Medications Medications: Current Medications Aspirin (Aspirin) 325 mg PO DAILY [facility] Last Admin: 09/16/15 10:34 Dose: 325 mg Clopidogrel Bisulfate (Plavix) 75 mg PO DAILY [facility] Last Admin: 09/16/15 10:35 Dose: 75 mg Piperacillin Sod/Tazobactam Sod (Zosyn 3.375 Gm Iv Premix) 50 mls @ 100 mls/hr IVPB Q8H [facility] Last Admin: 09/16/15 10:35 Dose: 100 mls/hr Lisinopril (Zestril) 5 mg PO DAILY [facility] Last Admin: 09/16/15 10:34 Dose: 5 mg Nystatin (Nystop Topical Powder) 1 applic TOP BID [facility] Last Admin: 09/15/15 17:16 Dose: 1 applic Petrolatum (Desitin Original) 0 gm TOP BID [facility] Last Admin: 09/15/15 17:19 Dose: 1 applic Phenytoin (Dilantin) 100 mg PEG TID [facility] Last Admin: 09/16/15 10:35 Dose: 100 mg Polyethylene Glycol (Miralax) 17 gm PEG BID [facility] Last Admin: 08/21/15 11:26 Dose: Not Given Assessment/Plan (1) Anoxic encephalopathy Current Visit: Yes Status: Acute Comment: 09/16: On vent, no change, continue to monitor 09/15: Pt awake, on vent, no change in mental status 09/14: patient on SIMV. No acute distress. 09/11: qivec-pe-pyhy dependent 09/10: Pt. abyed-cv-qlpc dependent. No change in mental status. 09/09: Patient awake. No acute changes. PEG feeds 10pm-8am. 09/08: Patient asleep and not responsive to verbal stimuli. NAD. Will continue to monitor. 09/07: Patient asleep, unable to arouse. No acute changes in condition. 09/06: Pt is awake, but only responsive to painful stimuli. Will continue to monitor 09/05: status unchanged, monitor 09/04: cont to monitor, pt unresponsive to verbal commands 09/03: No interval change, cont to monitor 09/02: Continue to monitor. 09/01: Continue to monitor, unchanged status. 08/31: status unchanged, will continue to monitor 08/30: awake and alert, eyes open, 08/29:Pt is more alert, able to open eyes; however, can not respond to verbal commands. will continue to monitor 08/28: Pt more alert today, continues to be unresponsive to verbal stimuli 08/27 No interval change in pt's condition, will continue to monitor 08/26 Patient's status remains the same 08/25 No improvement or change in mental status. Pt not responsive to verbal commands 08/24 Pt not responsive to verbal stimuli, only painful, unable to follow commands, pt continues to have swelling, minimal improvement, will continue to monitor, continue with dietary recommendations 08/22 Spontaneous movement, eyes open. given one dose of Lasix for increased swelling in upper extremities. GT bolus adjusted to dietary recommendations. 08/21 Spontaneous movement, opened eyes during examination. Per wound care nurse , Sabrina, pt is having skin breakdown due to excessive diarrhea. Recommended nystatin powder and sensicare cream to be applied on affected area. Pt's laxatives were removed. Gastric tube feeding will be made into 4 boluses, at 8am , 12pm, 4pm, 8 pm, per dietary recommendations. C diff cultures ordered. (2) STEMI (ST elevation myocardial infarction) Current Visit: Yes Status: Acute Comment: s/p stenting Continue Lisinopril 5mg PO daily Continue Plavix 75mg PO daily Continue ASA 325mg PO daily (3) Respiratory failure Current Visit: Yes Status: Acute Comment: Dr. Salgado (pul) on case-help appreciated Cont patient on trach SIMV. Unable to wean. Monitor (4) Seizures Current Visit: Yes Status: Acute Comment: 09/14: No seizure activity. 09/09:Continue current management. 09/01: dilantin level 5.7, continue current management. 08/30--> repeat Dilantin level in am, cont meds, SZ precaution Continue dilantin 100mg via PEG TID Continue to monitor for seizure activity (5) Prophylactic measure Current Visit: Yes Status: Acute Comment: Plavix 75 mg PO daily [facility] Attending/Attestation - Attestation I have personally seen and examined this patient.: Yes I have fully participated in the care of the patient.: Yes I have reviewed all pertinent clinical information: Yes Notes (Text): 09/16/15 14:13 pt seen and examined during round with resident cont vent mx as per pUlm non verbal cont Abx as per ID
[2015-09-16] MEDS: Piperacill/Tazo 3.375gm in Dex 50 ML IVPB SCH ×3 (02:43→19:40)
[2015-09-16] MEDS: Phenytoin 100 mg/4 ml Oral Susp UD PEG SCH ×3 (10:35→19:08)
[2015-09-16] MEDS: Zinc Oxide Topical 30 gm Tube TOP SCH ×2 (11:00→19:06)
[2015-09-17] MEDS: Piperacill/Tazo 3.375gm in Dex 50 ML IVPB SCH ×3 (02:39→19:33)
[2015-09-17 07:30] LABS: BASO # 0.1 K/uL (0.0-0.2); BASO % 0.4 % (0.0-2.0); EOS # 1.9 K/uL (0.0-0.7); EOS % 11.8 % (0.0-4.0); HEMOGLOBIN 11.6 g/dL (12.0-18.0); LYMPH # 1.2 K/uL (1.0-4.3); LYMPH % 7.1 % (20.0-40.0); MEAN CELL VOLUME 94.3 fL (80.0-94.0); MEAN CORPUSCULAR HEMOGLOBIN 31.4 pg (27.0-31.0); MEAN CORPUSCULAR HGB CONC 33.3 g/dL (33.0-37.0); MEAN PLATELET VOLUME 7.8 fL (7.2-11.7); MONO # 1.1 K/uL (0.0-0.8); MONO % 6.8 % (0.0-10.0); NEUT # 11.9 K/uL (1.8-7.0); NEUT % 73.9 % (50.0-75.0); PLATELET COUNT 336 K/uL (130-400); RED CELL DISTRIBUTION WIDTH 14.3 % (11.5-14.5); WHITE BLOOD COUNT 16.1 K/uL (4.8-10.8)
[2015-09-17 07:42] LABS: ALB/GLOB RATIO 0.8 (1.0-2.1); ALT/SGPT 108 U/L (21-72); AST/SGOT 50 U/L (17-59); BLOOD UREA NITROGEN 17 mg/dL (9-20); CALCIUM 8.7 mg/dL (8.4-10.2); GFR NON-AFRICAN AMERICAN > 60
[2015-09-17 09:23] LABS: BASOPHIL 1 % (0-2); EOSINOPHIL 8 % (0-4); LYMPHOCYTE 11 % (20-40); MONOCYTE 3 % (0-10); NEUTROPHIL 77 % (50-75); TOTAL CELLS COUNTED 100
[2015-09-17 09:24] LABS: ANISOCYTOSIS SLIGHT; HYPOCHROMIC SLIGHT; PLATELET ESTIMATE NORMAL (NORMAL); POIKILOCYTOSIS SLIGHT
[2015-09-17] MEDS: Zinc Oxide Topical 30 gm Tube TOP SCH ×2 (10:00→18:15)
[2015-09-17] MEDS: Phenytoin 100 mg/4 ml Oral Susp UD PEG SCH ×3 (12:00→18:14)
--- NOTE | 2015-09-17 15:01 | CP.PCM.PN ---
<Mariella Wagner - Last Filed: 09/17/15 14:56> Subjective - Subjective Subjective: Medicine Progress note: Patient seen and examined at bedside. Patient in no acute distress. No acute events overnight. Moves lower extremities with tactile stimulus. Patient turned around for body checks today with attending at bedside. Decub ulcer unchanged, Stage 2. Review of Systems - Review of Systems Systems not reviewed;Unavailable: Other (anoxic brain injury) Objective - Vital Signs/Intake and Output Vital Signs (last 24 hours): Vital Signs - 24 hr 09/16/15 09/17/15 22:00 06:04 Temperature 98.5 F 98.3 F Pulse Rate 88 84 Respiratory 18 20 Rate Blood Pressure 112/74 148/83 O2 Sat by Pulse 100 99 Oximetry Intake and Output (last 12 hours): Intake & Output 09/16/15 09/17/15 09/17/15 18:59 06:59 18:59 Output Total 1100 Balance -1100 Output: Urine 1100 Urethral (Yoo) 1100 - Medications Medications: Current Medications Aspirin (Aspirin) 325 mg PO DAILY [facility] Last Admin: 09/17/15 12:00 Dose: 325 mg Clopidogrel Bisulfate (Plavix) 75 mg PO DAILY [facility] Last Admin: 09/17/15 12:00 Dose: 75 mg Piperacillin Sod/Tazobactam Sod (Zosyn 3.375 Gm Iv Premix) 50 mls @ 100 mls/hr IVPB Q8H [facility] Last Admin: 09/17/15 02:39 Dose: 100 mls/hr Lisinopril (Zestril) 5 mg PO DAILY [facility] Last Admin: 09/17/15 12:00 Dose: 5 mg Nystatin (Nystop Topical Powder) 1 applic TOP BID [facility] Last Admin: 09/16/15 19:08 Dose: 1 applic Petrolatum (Desitin Original) 0 gm TOP BID [facility] Last Admin: 09/16/15 19:06 Dose: 1 applic Phenytoin (Dilantin) 100 mg PEG TID [facility] Last Admin: 09/17/15 12:00 Dose: 100 mg Polyethylene Glycol (Miralax) 17 gm PEG BID [facility] Last Admin: 08/21/15 11:26 Dose: Not Given - Labs Labs (last 24 hours): Laboratory Results - last 24 hr 09/17/15 07:12 WBC 16.1 H RBC 3.70 L Hgb 11.6 L Hct 34.9 L MCV 94.3 H MCH 31.4 H MCHC 33.3 RDW 14.3 Plt Count 336 MPV 7.8 Neut % (Auto) 73.9 Lymph % (Auto) 7.1 L [place] % (Auto) 6.8 Eos % (Auto) 11.8 H Baso % (Auto) 0.4 Neut # 11.9 H Lymph # 1.2 [place] # 1.1 H Eos # 1.9 H Baso # 0.1 Neutrophils % (Manual) 77 H Lymphocytes % (Manual) 11 L Monocytes % (Manual) 3 Eosinophils % (Manual) 8 H Basophils % (Manual) 1 Platelet Estimate Normal Hypochromasia (manual) Slight Poikilocytosis (manual Slight Anisocytosis (manual) Slight Sodium 138 Potassium 4.0 Chloride 103 Carbon Dioxide 30 Anion Gap 9 L BUN 17 Creatinine 0.6 L Est GFR ( Amer) > 60 Est GFR (Non-Af Amer) > 60 Random Glucose 166 H Calcium 8.7 Phosphorus 3.9 Magnesium 2.2 Total Bilirubin 0.4 AST 50 ALT 108 H Alkaline Phosphatase 112 Total Protein 6.9 Albumin 3.0 L Globulin 3.9 Albumin/Globulin Ratio 0.8 L - Constitutional Appears: No Acute Distress - Head Exam Head Exam: NORMAL INSPECTION, NORMOCEPHALIC - Eye Exam Eye Exam: EOMI, Normal appearance - ENT Exam ENT Exam: Mucous Membranes Moist - Respiratory Exam Respiratory Exam: Clear to PA & Lateral. absent: Rales, Rhonchi, Wheezes - Cardiovascular Exam Cardiovascular Exam: REGULAR RHYTHM, +S1, +S2 - GI/Abdominal Exam GI & Abdominal Exam: Normal Bowel Sounds, Soft. absent: Distended, Tenderness - Extremities Exam Extremities exam: pedal pulses present. absent: full ROM, pedal edema - Neurological Exam Neurological exam: Altered. absent: Alert - Skin Skin Exam: Dry, Normal Color, Warm Additional comments: + sacral decub ulcer Stage II Assessment/Plan (1) Urinary tract infection Current Visit: Yes Status: Acute Comment: Afebrile. WBC today is up to 16.1 (up from 13.2). Urine culture 09/11/15 final + Pseudomonas Aeruginosa. ID on case- Dr. Armstrong. As per Dr. Armstrong, repeat UA and Urine C&S. f/u C.diff. f/u CBC in the AM. Continue Zosyn 3.375 gm IVPB Q8H-- DAY 5 (2) Anoxic encephalopathy Current Visit: Yes Status: Acute Comment: 09/17: On vent, no change, continue to monitor. 09/15: Pt awake, on vent, no change in mental status 09/14: patient on SIMV. No acute distress. 09/11: [id number] dependent 09/10: Pt. [id number] dependent. No change in mental status. 09/09: Patient awake. No acute changes. PEG feeds 10pm-8am. 09/08: Patient asleep and not responsive to verbal stimuli. NAD. Will continue to monitor. 09/07: Patient asleep, unable to arouse. No acute changes in condition. 09/06: Pt is awake, but only responsive to painful stimuli. Will continue to monitor 09/05: status unchanged, monitor 09/04: cont to monitor, pt unresponsive to verbal commands 09/03: No interval change, cont to monitor 09/02: Continue to monitor. 09/01: Continue to monitor, unchanged status. 08/31: status unchanged, will continue to monitor 08/30: awake and alert, eyes open, 08/29:Pt is more alert, able to open eyes; however, can not respond to verbal commands. will continue to monitor 08/28: Pt more alert today, continues to be unresponsive to verbal stimuli 08/27 No interval change in pt's condition, will continue to monitor 08/26 Patient's status remains the same 08/25 No improvement or change in mental status. Pt not responsive to verbal commands 08/24 Pt not responsive to verbal stimuli, only painful, unable to follow commands, pt continues to have swelling, minimal improvement, will continue to monitor, continue with dietary recommendations 08/22 Spontaneous movement, eyes open. given one dose of Lasix for increased swelling in upper extremities. GT bolus adjusted to dietary recommendations. 08/21 Spontaneous movement, opened eyes during examination. Per wound care nurse , Sabrina, pt is having skin breakdown due to excessive diarrhea. Recommended nystatin powder and sensicare cream to be applied on affected area. Pt's laxatives were removed. Gastric tube feeding will be made into 4 boluses, at 8am , 12pm, 4pm, 8 pm, per dietary recommendations. C diff cultures ordered. (3) Chest congestion Current Visit: Yes Status: Acute Comment: 09/17: Lungs clear bilaterally 09/15: No change 09/14: Clear to auscultation. No acute distress. 09/12: CXR on 09/12 shows no changes. 09/09: No acute distress. Afebrile. 09/08: Not using accesory muscles. Afebrile. Sputum culture (07/28/15) with Pseudomonas aeruginosa s/p treatment Dr. Armstrong on case-following. (4) Transaminitis Current Visit: Yes Status: Acute Comment: 09/17: AST 50, [id number] and Alk phos 112. Stable. 09/14: AST 51, ALT 107 and AlK phos 118. Stable. 09/12: AST 49, ALT 99 and AlK phos 115. Improved. Recheck Q4days. Hep panel negative Continue to monitor LFTs (5) Edema of upper extremity Current Visit: Yes Status: Acute Comment: Venous doppler (07/19) - thrombosis of right cephalic vein (superficial) - please see official report Continue warm compresses Monitor (6) Respiratory failure Current Visit: Yes Status: Acute Comment: Dr. Salgado (pul) on case-help appreciated Cont patient on trach SIMV. Unable to wean. Monitor (7) STEMI (ST elevation myocardial infarction) Current Visit: Yes Status: Acute Comment: s/p cardiac stenting 06/13/15. Continue Lisinopril 5mg PO daily Continue Plavix 75mg PO daily Continue ASA 325mg PO daily (8) Seizures Current Visit: Yes Status: Acute Comment: 09/17: No seizure activity noted. 09/09:Continue current management. 09/01: dilantin level 5.7, continue current management. 08/30--> repeat Dilantin level in am, cont meds, SZ precaution Continue dilantin 100mg via PEG TID Continue to monitor for seizure activity (9) Deep tissue injury Current Visit: Yes Status: Acute Comment: Sacral Decub ulcer Stage II. Cont wound care Qshift As per wound care, apply protective ointment daily as a protective measure. Desitin TOP BID Nystatin Powder BID Continue body checks. (10) Prophylactic measure Current Visit: Yes Status: Acute Comment: Plavix 75 mg PO daily [facility] <Donnell Yign M - Last Filed: 09/17/15 16:19> Objective - Vital Signs/Intake and Output Vital Signs (last 24 hours): Vital Signs - 24 hr 09/16/15 09/17/15 09/17/15 22:00 06:04 14:57 Temperature 98.5 F 98.3 F 98.0 F Pulse Rate 88 84 84 Respiratory 18 20 20 Rate Blood Pressure 112/74 148/83 114/80 O2 Sat by Pulse 100 99 99 Oximetry Intake and Output (last 12 hours): Intake & Output 09/16/15 09/17/15 09/17/15 18:59 06:59 18:59 Output Total 1100 Balance -1100 Output: Urine 1100 Urethral (Yoo) 1100 - Medications Medications: Current Medications Aspirin (Aspirin) 325 mg PO DAILY [facility] Last Admin: 09/17/15 12:00 Dose: 325 mg Clopidogrel Bisulfate (Plavix) 75 mg PO DAILY [facility] Last Admin: 09/17/15 12:00 Dose: 75 mg Piperacillin Sod/Tazobactam Sod (Zosyn 3.375 Gm Iv Premix) 50 mls @ 100 mls/hr IVPB Q8H [facility] Last Admin: 09/17/15 12:00 Dose: 100 mls/hr Lisinopril (Zestril) 5 mg PO DAILY [facility] Last Admin: 09/17/15 12:00 Dose: 5 mg Nystatin (Nystop Topical Powder) 1 applic TOP BID [facility] Last Admin: 09/17/15 10:00 Dose: 1 applic Petrolatum (Desitin Original) 0 gm TOP BID [facility] Last Admin: 09/17/15 10:00 Dose: 1 applic Phenytoin (Dilantin) 100 mg PEG TID [facility] Last Admin: 09/17/15 15:15 Dose: 100 mg Polyethylene Glycol (Miralax) 17 gm PEG BID [facility] Last Admin: 08/21/15 11:26 Dose: Not Given - Labs Labs (last 24 hours): Laboratory Results - last 24 hr 09/17/15 07:12 WBC 16.1 H RBC 3.70 L Hgb 11.6 L Hct 34.9 L MCV 94.3 H MCH 31.4 H MCHC 33.3 RDW 14.3 Plt Count 336 MPV 7.8 Neut % (Auto) 73.9 Lymph % (Auto) 7.1 L [place] % (Auto) 6.8 Eos % (Auto) 11.8 H Baso % (Auto) 0.4 Neut # 11.9 H Lymph # 1.2 [place] # 1.1 H Eos # 1.9 H Baso # 0.1 Neutrophils % (Manual) 77 H Lymphocytes % (Manual) 11 L Monocytes % (Manual) 3 Eosinophils % (Manual) 8 H Basophils % (Manual) 1 Platelet Estimate Normal Hypochromasia (manual) Slight Poikilocytosis (manual Slight Anisocytosis (manual) Slight Sodium 138 Potassium 4.0 Chloride 103 Carbon Dioxide 30 Anion Gap 9 L BUN 17 Creatinine 0.6 L Est GFR ( Amer) > 60 Est GFR (Non-Af Amer) > 60 Random Glucose 166 H Calcium 8.7 Phosphorus 3.9 Magnesium 2.2 Total Bilirubin 0.4 AST 50 ALT 108 H Alkaline Phosphatase 112 Total Protein 6.9 Albumin 3.0 L Globulin 3.9 Albumin/Globulin Ratio 0.8 L Attending/Attestation - Attestation I have personally seen and examined this patient.: Yes I have fully participated in the care of the patient.: Yes I have reviewed all pertinent clinical information: Yes Notes (Text): 09/17/15 16:18 Patient seen and examined at bedside with the residents. Decubitus ulcers examined. Continue current management for decubitus ulcers. Patient's white blood cell count is trending up. We discussed with infectious disease for further evaluation and workup. In the meantime continue current antibiotics.
[2015-09-17 20:52] LABS: URINE BILIRUBIN NEGATIVE (NEGATIVE); URINE BLOOD NEGATIVE (NEGATIVE); URINE CLARITY Hazy (Clear); URINE COLOR Yellow (YELLOW); URINE GLUCOSE (UA) Normal (Normal); URINE LEUKOCYTE ESTERASE 1+ Leu/uL (Negative); URINE PROTEIN TRACE mg/dL (NEGATIVE); URINE UROBILINOGEN Normal mg/dL (0.2-1.0)
[2015-09-18] MEDS: Piperacill/Tazo 3.375gm in Dex 50 ML IVPB SCH ×3 (03:03→18:32)
[2015-09-18 07:29] LABS: BASO # 0.1 K/uL (0.0-0.2); BASO % 0.5 % (0.0-2.0); EOS % 14.3 % (0.0-4.0); HEMOGLOBIN 11.7 g/dL (12.0-18.0); LYMPH # 1.3 K/uL (1.0-4.3); LYMPH % 9.2 % (20.0-40.0); MEAN CELL VOLUME 94.6 fL (80.0-94.0); MEAN CORPUSCULAR HEMOGLOBIN 30.6 pg (27.0-31.0); MEAN CORPUSCULAR HGB CONC 32.4 g/dL (33.0-37.0); MEAN PLATELET VOLUME 8.1 fL (7.2-11.7); MONO # 1.1 K/uL (0.0-0.8); MONO % 8.2 % (0.0-10.0); NEUT # 9.4 K/uL (1.8-7.0); NEUT % 67.8 % (50.0-75.0); PLATELET COUNT 361 K/uL (130-400); RBC 3.81 Mil/uL (4.40-5.90); RED CELL DISTRIBUTION WIDTH 14.3 % (11.5-14.5); WHITE BLOOD COUNT 13.9 K/uL (4.8-10.8)
--- NOTE | 2015-09-18 07:30 | CP.PCM.PN ---
Addendum entered and electronically signed by Mariella Wagner DO 09/18/15 11: 29: Updated: Assessment/Plan (1) Urinary tract infection Current Visit: Yes Status: Acute Comment: Afebrile. WBC today is 13.9 improved from yesterday 16.1. Urine culture 09/11/15 final + Pseudomonas Aeruginosa. ID on case- Dr. Armstrong. As per Dr. Armstrong, f/u repeat Urine C&S. UA 1+ LE and *+ WBC (improved) C.diff toxin NEGATIVE.f/u repeat C.diff. Start Flagyl 500 mg PEG Q8H - DAY 1. Continue Zosyn 3.375 gm IVPB Q8H- DAY 6 f/u CBC in the AM. Original Note: <Mariella Wagner - Last Filed: 09/18/15 11:20> Subjective - Subjective Subjective: Medicine Progress Note PGY1: Patient seen and examined this AM. Patient in no acute distress, appears to be breathing comfortably on ventilator. Patient asleep during examination. Patient had no acute events overnight. Patient in decorticate posture. Review of Systems - Review of Systems Systems not reviewed;Unavailable: Other (anoxic brain injury) Objective - Vital Signs/Intake and Output Vital Signs (last 24 hours): Vital Signs - 24 hr 09/17/15 09/17/15 09/18/15 14:57 21:13 05:38 Temperature 98.0 F 98.4 F 97.8 F Pulse Rate 84 81 82 Respiratory 20 19 20 Rate Blood Pressure 114/80 134/89 136/92 H O2 Sat by Pulse 99 100 100 Oximetry Intake and Output (last 12 hours): Intake & Output 09/17/15 09/18/15 09/18/15 18:59 06:59 18:59 Intake Total 850 Output Total 960 Balance -110 Intake: Tube Feeding 850 Output: Gastric Amount 10 Stomach 10 Urine 950 Urethral (Yoo) 950 Other: # Bowel Movements 1 - Medications Medications: Current Medications Aspirin (Aspirin) 325 mg PO DAILY [facility] Last Admin: 09/17/15 12:00 Dose: 325 mg Clopidogrel Bisulfate (Plavix) 75 mg PO DAILY [facility] Last Admin: 09/17/15 12:00 Dose: 75 mg Piperacillin Sod/Tazobactam Sod (Zosyn 3.375 Gm Iv Premix) 50 mls @ 100 mls/hr IVPB Q8H [facility] Last Admin: 09/18/15 03:03 Dose: 100 mls/hr Lisinopril (Zestril) 5 mg PO DAILY [facility] Last Admin: 09/17/15 12:00 Dose: 5 mg Nystatin (Nystop Topical Powder) 1 applic TOP BID [facility] Last Admin: 09/17/15 18:15 Dose: 1 applic Petrolatum (Desitin Original) 0 gm TOP BID [facility] Last Admin: 09/17/15 18:15 Dose: 1 applic Phenytoin (Dilantin) 100 mg PEG TID [facility] Last Admin: 09/17/15 18:14 Dose: 100 mg Polyethylene Glycol (Miralax) 17 gm PEG BID [facility] Last Admin: 08/21/15 11:26 Dose: Not Given - Labs Labs (last 24 hours): Laboratory Results - last 24 hr 09/17/15 09/17/15 07:12 20:07 WBC 16.1 H RBC 3.70 L Hgb 11.6 L Hct 34.9 L MCV 94.3 H MCH 31.4 H MCHC 33.3 RDW 14.3 Plt Count 336 MPV 7.8 Neut % (Auto) 73.9 Lymph % (Auto) 7.1 L [place] % (Auto) 6.8 Eos % (Auto) 11.8 H Baso % (Auto) 0.4 Neut # 11.9 H Lymph # 1.2 [place] # 1.1 H Eos # 1.9 H Baso # 0.1 Neutrophils % (Manual) 77 H Lymphocytes % (Manual) 11 L Monocytes % (Manual) 3 Eosinophils % (Manual) 8 H Basophils % (Manual) 1 Platelet Estimate Normal Hypochromasia (manual) Slight Poikilocytosis (manual Slight Anisocytosis (manual) Slight Sodium 138 Potassium 4.0 Chloride 103 Carbon Dioxide 30 Anion Gap 9 L BUN 17 Creatinine 0.6 L Est GFR ( Amer) > 60 Est GFR (Non-Af Amer) > 60 Random Glucose 166 H Calcium 8.7 Phosphorus 3.9 Magnesium 2.2 Total Bilirubin 0.4 AST 50 ALT 108 H Alkaline Phosphatase 112 Total Protein 6.9 Albumin 3.0 L Globulin 3.9 Albumin/Globulin Ratio 0.8 L Urine Color Yellow Urine Clarity Hazy Urine pH 6.0 Ur Specific [place] 1.021 Urine Protein Trace Urine Glucose (UA) Normal Urine Ketones Negative Urine Blood Negative Urine Nitrate Negative Urine Bilirubin Negative Urine Urobilinogen Normal Ur Leukocyte Esterase 1+ H Urine WBC (Auto) 8 H - Constitutional Appears: No Acute Distress - Head Exam Head Exam: ATRAUMATIC, NORMOCEPHALIC - Eye Exam Eye Exam: EOMI, Normal appearance - ENT Exam ENT Exam: Mucous Membranes Moist - Neck Exam Neck exam: Normal Inspection. absent: Full Rom Additional comments: +tracheotomy with vent tube in place. - Respiratory Exam Respiratory Exam: Clear to PA & Lateral. absent: Rales, Rhonchi, Wheezes - Cardiovascular Exam Cardiovascular Exam: REGULAR RHYTHM, +S1, +S2 - GI/Abdominal Exam GI & Abdominal Exam: Normal Bowel Sounds, Soft. absent: Distended - Extremities Exam Extremities exam: pedal pulses present. absent: pedal edema - Neurological Exam Neurological exam: Altered - Skin Skin Exam: Dry, Normal Color, Warm Assessment/Plan (1) Urinary tract infection Current Visit: Yes Status: Acute Comment: Afebrile. WBC today is 13.9 improved from yesterday 16.1. Urine culture 09/11/15 final + Pseudomonas Aeruginosa. ID on case- Dr. Armstrong. As per Dr. Armstrong, repeat UA and Urine C&S. C.diff toxin NEGATIVE. Continue Zosyn 3.375 gm IVPB Q8H-- DAY 6 f/u CBC in the AM. (2) Anoxic encephalopathy Current Visit: Yes Status: Acute Comment: 09/18: On vent, no acute distress, continue to monitor. 09/15: Pt awake, on vent, no change in mental status 09/14: patient on SIMV. No acute distress. 09/11: [id number] dependent 09/10: Pt. [id number]-mf-pafm dependent. No change in mental status. 09/09: Patient awake. No acute changes. PEG feeds 10pm-8am. 09/08: Patient asleep and not responsive to verbal stimuli. NAD. Will continue to monitor. 09/07: Patient asleep, unable to arouse. No acute changes in condition. 09/06: Pt is awake, but only responsive to painful stimuli. Will continue to monitor 09/05: status unchanged, monitor 09/04: cont to monitor, pt unresponsive to verbal commands 09/03: No interval change, cont to monitor 09/02: Continue to monitor. 09/01: Continue to monitor, unchanged status. 08/31: status unchanged, will continue to monitor 08/30: awake and alert, eyes open, 08/29:Pt is more alert, able to open eyes; however, can not respond to verbal commands. will continue to monitor 08/28: Pt more alert today, continues to be unresponsive to verbal stimuli 08/27 No interval change in pt's condition, will continue to monitor 08/26 Patient's status remains the same 08/25 No improvement or change in mental status. Pt not responsive to verbal commands 08/24 Pt not responsive to verbal stimuli, only painful, unable to follow commands, pt continues to have swelling, minimal improvement, will continue to monitor, continue with dietary recommendations 08/22 Spontaneous movement, eyes open. given one dose of Lasix for increased swelling in upper extremities. GT bolus adjusted to dietary recommendations. 08/21 Spontaneous movement, opened eyes during examination. Per wound care nurse , Sabrina, pt is having skin breakdown due to excessive diarrhea. Recommended nystatin powder and sensicare cream to be applied on affected area. Pt's laxatives were removed. Gastric tube feeding will be made into 4 boluses, at 8am , 12pm, 4pm, 8 pm, per dietary recommendations. C diff cultures ordered. (3) Chest congestion Current Visit: Yes Status: Acute Comment: 09/18: Lungs clear bilaterally. Good air flow. 09/15: No change 09/14: Clear to auscultation. No acute distress. 09/12: CXR on 09/12 shows no changes. 09/09: No acute distress. Afebrile. 09/08: Not using accesory muscles. Afebrile. Sputum culture (07/28/15) with Pseudomonas aeruginosa s/p treatment Dr. Armstrong on case-following. (4) Transaminitis Current Visit: Yes Status: Acute Comment: 09/18: AST 42 , ALT 95 and Alk phos 117. Stable. 09/17: AST 50, [id number] and Alk phos 112. Stable. 09/14: AST 51, ALT 107 and AlK phos 118. Stable. 09/12: AST 49, ALT 99 and AlK phos 115. Improved. Recheck Q4days. Hep panel negative Continue to monitor LFTs (5) Edema of upper extremity Current Visit: Yes Status: Acute Comment: Venous doppler (07/19) - superficial thrombosis of right cephalic vein. (see official report). Continue warm compresses Monitor (6) Respiratory failure Current Visit: Yes Status: Acute Comment: Dr. Salgado (pul) on case-help appreciated Cont patient on trach SIMV. Unable to wean at this time. Monitor (7) STEMI (ST elevation myocardial infarction) Current Visit: Yes Status: Acute Comment: s/p cardiac stent on 06/13/15. Continue Lisinopril 5mg PO daily Continue Plavix 75mg PO daily Continue ASA 325mg PO daily (8) Seizures Current Visit: Yes Status: Acute Comment: 09/18: No seizure activity observed. 09/09:Continue current management. 09/01: dilantin level 5.7, continue current management. 08/30--> repeat Dilantin level in am, cont meds, SZ precaution Continue dilantin 100mg via PEG TID Continue to monitor for seizure activity (9) Deep tissue injury Current Visit: Yes Status: Acute Comment: Sacral Decub ulcer Stage II. Cont wound care Qshift As per wound care, apply protective ointment daily as a protective measure. Desitin TOP BID Nystatin Powder BID Turn Patient. Continue body checks. (10) Prophylactic measure Current Visit: Yes Status: Acute Comment: Plavix 75 mg PO daily [facility] <Donavan Hallman - Last Filed: 09/18/15 17:45> Objective - Vital Signs/Intake and Output Vital Signs (last 24 hours): Vital Signs - 24 hr 09/17/15 09/18/15 09/18/15 21:13 05:38 13:00 Temperature 98.4 F 97.8 F 98.1 F Pulse Rate 81 82 92 H Respiratory 19 20 18 Rate Blood Pressure 134/89 136/92 H 113/67 O2 Sat by Pulse 100 100 100 Oximetry Intake and Output (last 12 hours): Intake & Output 09/17/15 09/18/15 09/18/15 18:59 06:59 18:59 Intake Total 850 Output Total 960 300 Balance -110 -300 Intake: Tube Feeding 850 Output: Gastric Amount 10 Stomach 10 Urine 950 300 Urethral (Yoo) 950 300 Other: # Bowel Movements 1 - Medications Medications: Current Medications Aspirin (Aspirin) 325 mg PO DAILY [facility] Last Admin: 09/18/15 11:06 Dose: 325 mg Clopidogrel Bisulfate (Plavix) 75 mg PO DAILY [facility] Last Admin: 09/18/15 11:06 Dose: 75 mg Piperacillin Sod/Tazobactam Sod (Zosyn 3.375 Gm Iv Premix) 50 mls @ 100 mls/hr IVPB Q8H [facility] Last Admin: 09/18/15 13:06 Dose: 100 mls/hr Lisinopril (Zestril) 5 mg PO DAILY [facility] Last Admin: 09/18/15 11:07 Dose: 5 mg Metronidazole (Flagyl) 500 mg PEG Q8 [facility] Last Admin: 09/18/15 13:18 Dose: 500 mg Nystatin (Nystop Topical Powder) 1 applic TOP BID [facility] Last Admin: 09/18/15 17:30 Dose: 1 applic Petrolatum (Desitin Original) 0 gm TOP BID [facility] Last Admin: 09/18/15 17:31 Dose: 1 applic Phenytoin (Dilantin) 100 mg PEG TID [facility] Last Admin: 09/18/15 17:30 Dose: 100 mg Polyethylene Glycol (Miralax) 17 gm PEG BID [facility] Last Admin: 08/21/15 11:26 Dose: Not Given - Labs Labs (last 24 hours): Laboratory Results - last 24 hr 09/17/15 09/18/15 20:07 07:12 WBC 13.9 H RBC 3.81 L Hgb 11.7 L Hct 36.0 MCV 94.6 H MCH 30.6 MCHC 32.4 L RDW 14.3 Plt Count 361 MPV 8.1 Neut % (Auto) 67.8 Lymph % (Auto) 9.2 L [place] % (Auto) 8.2 Eos % (Auto) 14.3 H Baso % (Auto) 0.5 Neut # 9.4 H Lymph # 1.3 [place] # 1.1 H Eos # 2.0 H Baso # 0.1 Neutrophils % (Manual) 65 Lymphocytes % (Manual) 16 L Monocytes % (Manual) 7 Eosinophils % (Manual) 12 H Platelet Estimate Normal Large Platelets Present Giant Platelets Present Hypochromasia (manual) Slight Poikilocytosis (manual Slight Anisocytosis (manual) Slight Sodium 139 Potassium 3.8 Chloride 103 Carbon Dioxide 29 Anion Gap 11 BUN 19 Creatinine 0.6 L Est GFR ( Amer) > 60 Est GFR (Non-Af Amer) > 60 Random Glucose 114 H Calcium 8.8 Phosphorus 3.7 Magnesium 2.2 Total Bilirubin 0.3 AST 42 ALT 95 H Alkaline Phosphatase 117 Total Protein 7.1 Albumin 3.2 L Globulin 4.0 H Albumin/Globulin Ratio 0.8 L Urine Color Yellow Urine Clarity Hazy Urine pH 6.0 Ur Specific [place] 1.021 Urine Protein Trace Urine Glucose (UA) Normal Urine Ketones Negative Urine Blood Negative Urine Nitrate Negative Urine Bilirubin Negative Urine Urobilinogen Normal Ur Leukocyte Esterase 1+ H Urine WBC (Auto) 8 H Attending/Attestation - Attestation I have personally seen and examined this patient.: Yes I have fully participated in the care of the patient.: Yes I have reviewed all pertinent clinical information: Yes
[2015-09-18 08:41] LABS: ALBUMIN 3.2 g/dL (3.5-5.0)
[2015-09-18 08:44] LABS: ALB/GLOB RATIO 0.8 (1.0-2.1); AST/SGOT 42 U/L (17-59); BLOOD UREA NITROGEN 19 mg/dL (9-20); GFR NON-AFRICAN AMERICAN > 60
[2015-09-18 08:45] LABS: ALT/SGPT 95 U/L (21-72); CALCIUM 8.8 mg/dL (8.4-10.2)
[2015-09-18 09:34] LABS: EOSINOPHIL 12 % (0-4); LYMPHOCYTE 16 % (20-40); MONOCYTE 7 % (0-10); NEUTROPHIL 65 % (50-75); TOTAL CELLS COUNTED 100
[2015-09-18 09:35] LABS: PLATELET ESTIMATE NORMAL (NORMAL)
[2015-09-18 09:37] LABS: ANISOCYTOSIS SLIGHT; HYPOCHROMIC SLIGHT; POIKILOCYTOSIS SLIGHT
[2015-09-18 09:38] LABS: LARGE PLATELETS PRESENT
[2015-09-18 09:39] LABS: GIANT PLATELETS PRESENT
[2015-09-18] MEDS: Phenytoin 100 mg/4 ml Oral Susp UD PEG SCH ×3 (11:06→17:30)
[2015-09-18] MEDS: Zinc Oxide Topical 30 gm Tube TOP SCH ×2 (11:08→17:31)
[2015-09-19] MEDS: Piperacill/Tazo 3.375gm in Dex 50 ML IVPB SCH ×3 (03:06→18:29)
--- NOTE | 2015-09-19 07:30 | CP.PCM.PN ---
<Mariella Wagner - Last Filed: 09/19/15 12:53> Subjective - Subjective Subjective: PGY1 Medicine Progress Note: Patient seen and examined at bedside this AM. Patient has heel lift boots on for foot drop prevention. Patient afebrile and had no acute events overnight. Patient is still trached and on vent. Review of Systems - Review of Systems Systems not reviewed;Unavailable: Other (anoxic brain injury) Objective - Vital Signs/Intake and Output Vital Signs (last 24 hours): Vital Signs - 24 hr 09/18/15 09/18/15 09/19/15 13:00 22:00 06:00 Temperature 98.1 F 98.3 F 97.9 F Pulse Rate 92 H 90 90 Respiratory 18 20 14 Rate Blood Pressure 113/67 126/85 165/71 H O2 Sat by Pulse 100 99 100 Oximetry Intake and Output (last 12 hours): Intake & Output 09/18/15 09/19/15 09/19/15 18:59 06:59 18:59 Intake Total 1350 900 Output Total 300 856 Balance 1050 44 Intake: Intake, IV Amount 100 100 Left Wrist 100 100 Tube Feeding 750 800 Albumin 500 Output: Gastric Amount 5 Stomach 5 Urine 300 850 Urethral (Yoo) 300 850 Stool 1 - Medications Medications: Current Medications Aspirin (Aspirin) 325 mg PO DAILY [facility] Last Admin: 09/18/15 11:06 Dose: 325 mg Clopidogrel Bisulfate (Plavix) 75 mg PO DAILY [facility] Last Admin: 09/18/15 11:06 Dose: 75 mg Piperacillin Sod/Tazobactam Sod (Zosyn 3.375 Gm Iv Premix) 50 mls @ 100 mls/hr IVPB Q8H [facility] Last Admin: 09/19/15 03:06 Dose: 100 mls/hr Lisinopril (Zestril) 5 mg PO DAILY [facility] Last Admin: 09/18/15 11:07 Dose: 5 mg Metronidazole (Flagyl) 500 mg PEG Q8 [facility] Last Admin: 09/19/15 05:06 Dose: 500 mg Nystatin (Nystop Topical Powder) 1 applic TOP BID [facility] Last Admin: 09/18/15 17:30 Dose: 1 applic Petrolatum (Desitin Original) 0 gm TOP BID [facility] Last Admin: 09/18/15 17:31 Dose: 1 applic Phenytoin (Dilantin) 100 mg PEG TID [facility] Last Admin: 09/18/15 17:30 Dose: 100 mg Polyethylene Glycol (Miralax) 17 gm PEG BID [facility] Last Admin: 08/21/15 11:26 Dose: Not Given - Labs Labs (last 24 hours): Laboratory Results - last 24 hr 09/18/15 07:12 WBC 13.9 H RBC 3.81 L Hgb 11.7 L Hct 36.0 MCV 94.6 H MCH 30.6 MCHC 32.4 L RDW 14.3 Plt Count 361 MPV 8.1 Neut % (Auto) 67.8 Lymph % (Auto) 9.2 L [place] % (Auto) 8.2 Eos % (Auto) 14.3 H Baso % (Auto) 0.5 Neut # 9.4 H Lymph # 1.3 [place] # 1.1 H Eos # 2.0 H Baso # 0.1 Neutrophils % (Manual) 65 Lymphocytes % (Manual) 16 L Monocytes % (Manual) 7 Eosinophils % (Manual) 12 H Platelet Estimate Normal Large Platelets Present Giant Platelets Present Hypochromasia (manual) Slight Poikilocytosis (manual Slight Anisocytosis (manual) Slight Sodium 139 Potassium 3.8 Chloride 103 Carbon Dioxide 29 Anion Gap 11 BUN 19 Creatinine 0.6 L Est GFR ( Amer) > 60 Est GFR (Non-Af Amer) > 60 Random Glucose 114 H Calcium 8.8 Phosphorus 3.7 Magnesium 2.2 Total Bilirubin 0.3 AST 42 ALT 95 H Alkaline Phosphatase 117 Total Protein 7.1 Albumin 3.2 L Globulin 4.0 H Albumin/Globulin Ratio 0.8 L - Constitutional Appears: No Acute Distress - Head Exam Head Exam: NORMAL INSPECTION, NORMOCEPHALIC - Eye Exam Eye Exam: Normal appearance. absent: EOMI Pupil Exam: PERRL - ENT Exam ENT Exam: Mucous Membranes Moist Additional comments: +tracheotomy tube in place. - Respiratory Exam Respiratory Exam: Clear to PA & Lateral. absent: Rales, Rhonchi, Wheezes - Cardiovascular Exam Cardiovascular Exam: REGULAR RHYTHM, +S1, +S2 - GI/Abdominal Exam GI & Abdominal Exam: Normal Bowel Sounds, Soft. absent: Distended - Extremities Exam Extremities exam: pedal pulses present. absent: pedal edema - Neurological Exam Neurological exam: Altered. absent: Alert - Skin Skin Exam: Dry, Normal Color, Warm Assessment/Plan (1) Urinary tract infection Current Visit: Yes Status: Acute Comment: Afebrile overnight. WBC today is 13.7 Urine culture 09/11/15 final + Pseudomonas Aeruginosa. ID on case- Dr. Armstrong. Repeat UA 09/17 was improved with LE 1+ and WBC 8. f/u repeat Clostridium Diff X2 - discontinue Flagyl if negative X2. Continue Flagyl 500 mg PEG Q8H-- DAY 2 Continue Zosyn 3.375 gm IVPB Q8H-- DAY 7 f/u CBC in the AM (2) Anoxic encephalopathy Current Visit: Yes Status: Acute Comment: 09/19: continue on vent. Heel support boots on for foot drop prevention. 09/15: Pt awake, on vent, no change in mental status 09/14: patient on SIMV. No acute distress. 09/11: [id number] dependent 09/10: Pt. qfxrz-os-fkax dependent. No change in mental status. 09/09: Patient awake. No acute changes. PEG feeds 10pm-8am. 09/08: Patient asleep and not responsive to verbal stimuli. NAD. Will continue to monitor. 09/07: Patient asleep, unable to arouse. No acute changes in condition. 09/06: Pt is awake, but only responsive to painful stimuli. Will continue to monitor 09/05: status unchanged, monitor 09/04: cont to monitor, pt unresponsive to verbal commands 09/03: No interval change, cont to monitor 09/02: Continue to monitor. 09/01: Continue to monitor, unchanged status. 08/31: status unchanged, will continue to monitor 08/30: awake and alert, eyes open, 08/29:Pt is more alert, able to open eyes; however, can not respond to verbal commands. will continue to monitor 08/28: Pt more alert today, continues to be unresponsive to verbal stimuli 08/27 No interval change in pt's condition, will continue to monitor 08/26 Patient's status remains the same 08/25 No improvement or change in mental status. Pt not responsive to verbal commands 08/24 Pt not responsive to verbal stimuli, only painful, unable to follow commands, pt continues to have swelling, minimal improvement, will continue to monitor, continue with dietary recommendations 08/22 Spontaneous movement, eyes open. given one dose of Lasix for increased swelling in upper extremities. GT bolus adjusted to dietary recommendations. 08/21 Spontaneous movement, opened eyes during examination. Per wound care nurse , Sabrina, pt is having skin breakdown due to excessive diarrhea. Recommended nystatin powder and sensicare cream to be applied on affected area. Pt's laxatives were removed. Gastric tube feeding will be made into 4 boluses, at 8am , 12pm, 4pm, 8 pm, per dietary recommendations. C diff cultures ordered. (3) Chest congestion Current Visit: Yes Status: Acute Comment: 09/19: Lungs clear bilaterally. Good air flow. 09/15: No change 09/14: Clear to auscultation. No acute distress. 09/12: CXR on 09/12 shows no changes. 09/09: No acute distress. Afebrile. 09/08: Not using accesory muscles. Afebrile. Sputum culture (07/28/15) with Pseudomonas aeruginosa s/p treatment Dr. Armstrong on case-following. (4) Transaminitis Current Visit: Yes Status: Acute Comment: 09/19: AST 49, ALT 85 Alk Phos 103. Stable. 09/18: AST 42 , ALT 95 and Alk phos 117. Stable. 09/17: AST 50, [id number] and Alk phos 112. Stable. 09/14: AST 51, ALT 107 and AlK phos 118. Stable. 09/12: AST 49, ALT 99 and AlK phos 115. Improved. Recheck Q4days. Hep panel negative Continue to monitor LFTs (5) Edema of upper extremity Current Visit: Yes Status: Acute Comment: Venous doppler (07/19) showed superficial thrombosis of right cephalic vein. ( see official report). Continue warm compresses Monitor (6) Respiratory failure Current Visit: Yes Status: Acute Comment: Dr. Salgado (pulm) on case-help appreciated Continue patient on trach SIMV. Patient is vent dependent. Unable to wean at this time. Monitor (7) STEMI (ST elevation myocardial infarction) Current Visit: Yes Status: Acute Comment: history of cardiac stents on 06/13/15. Continue Lisinopril 5mg PO daily Continue Plavix 75mg PO daily Continue ASA 325mg PO daily (8) Seizures Current Visit: Yes Status: Acute Comment: 09/19: No seizure activity observed. Monitor. 09/09:Continue current management. 09/01: dilantin level 5.7, continue current management. 08/30--> repeat Dilantin level in am, cont meds, SZ precaution Continue dilantin 100mg via PEG TID Continue to monitor for seizure activity (9) Deep tissue injury Current Visit: Yes Status: Acute Comment: No leukocytosis. Sacral Decub ulcer Stage II. Cont wound care Qshift As per wound care, apply protective ointment daily as a protective measure. Desitin TOP BID Nystatin Powder BID Turn Patient. Continue body checks. (10) Prophylactic measure Current Visit: Yes Status: Acute Comment: Plavix 75 mg PO daily [facility] <Donnell Ying M - Last Filed: 09/19/15 15:36> Objective - Vital Signs/Intake and Output Vital Signs (last 24 hours): Vital Signs - 24 hr 09/18/15 09/19/15 09/19/15 22:00 06:00 14:24 Temperature 98.3 F 97.9 F 97.9 F Pulse Rate 90 90 83 Respiratory 20 14 20 Rate Blood Pressure 126/85 165/71 H 124/84 O2 Sat by Pulse 99 100 100 Oximetry Intake and Output (last 12 hours): Intake & Output 09/18/15 09/19/15 09/19/15 18:59 06:59 18:59 Intake Total 1350 900 Output Total 300 856 400 Balance 1050 44 -400 Intake: Intake, IV Amount 100 100 Left Wrist 100 100 Tube Feeding 750 800 Albumin 500 Output: Gastric Amount 5 Stomach 5 Urine 300 850 400 Urethral (Yoo) 300 850 400 Stool 1 - Medications Medications: Current Medications Aspirin (Aspirin) 325 mg PO DAILY [facility] Last Admin: 09/19/15 10:27 Dose: 325 mg Clopidogrel Bisulfate (Plavix) 75 mg PO DAILY [facility] Last Admin: 09/19/15 10:26 Dose: 75 mg Piperacillin Sod/Tazobactam Sod (Zosyn 3.375 Gm Iv Premix) 50 mls @ 100 mls/hr IVPB Q8H [facility] Last Admin: 09/19/15 10:35 Dose: 100 mls/hr Lisinopril (Zestril) 5 mg PO DAILY [facility] Last Admin: 09/19/15 10:27 Dose: 5 mg Metronidazole (Flagyl) 500 mg PEG Q8 [facility] Last Admin: 09/19/15 14:48 Dose: 500 mg Nystatin (Nystop Topical Powder) 1 applic TOP BID [facility] Last Admin: 09/19/15 10:28 Dose: 1 applic Petrolatum (Desitin Original) 0 gm TOP BID [facility] Last Admin: 09/19/15 10:27 Dose: 1 applic Phenytoin (Dilantin) 100 mg PEG TID [facility] Last Admin: 09/19/15 14:48 Dose: 100 mg Polyethylene Glycol (Miralax) 17 gm PEG BID [facility] Last Admin: 08/21/15 11:26 Dose: Not Given - Labs Labs (last 24 hours): Laboratory Results - last 24 hr 09/18/15 09/19/15 11:38 07:23 WBC 13.7 H RBC 3.65 L Hgb 11.3 L Hct 34.7 L MCV 95.1 H MCH 30.9 MCHC 32.5 L RDW 14.4 Plt Count 353 MPV 8.2 Neut % (Auto) 66.8 Lymph % (Auto) 11.0 L [place] % (Auto) 7.2 Eos % (Auto) 14.7 H Baso % (Auto) 0.3 Neut # 9.1 H Lymph # 1.5 [place] # 1.0 H Eos # 2.0 H Baso # 0.0 Sodium 138 Potassium 4.0 Chloride 102 Carbon Dioxide 29 Anion Gap 11 BUN 24 H Creatinine 0.6 L Est GFR ( Amer) > 60 Est GFR (Non-Af Amer) > 60 Random Glucose 141 H Calcium 8.5 Total Bilirubin 0.3 AST 49 ALT 85 H Alkaline Phosphatase 103 Total Protein 7.0 Albumin 3.0 L Globulin 4.0 H Albumin/Globulin Ratio 0.8 L C. difficile Ag & Toxin Negative Attending/Attestation - Attestation I have personally seen and examined this patient.: Yes I have fully participated in the care of the patient.: Yes I have reviewed all pertinent clinical information: Yes Notes (Text): 09/19/15 15:35 Patient seen and examined with the residents. No change in clinical condition. Continue IV antibiotics as per recommendations of ID. Agree with heel boots for prevention of pressure ulcers.
[2015-09-19 07:55] LABS: BASO % 0.3 % (0.0-2.0); EOS % 14.7 % (0.0-4.0); HEMOGLOBIN 11.3 g/dL (12.0-18.0); LYMPH # 1.5 K/uL (1.0-4.3); MEAN CELL VOLUME 95.1 fL (80.0-94.0); MEAN CORPUSCULAR HEMOGLOBIN 30.9 pg (27.0-31.0); MEAN CORPUSCULAR HGB CONC 32.5 g/dL (33.0-37.0); MEAN PLATELET VOLUME 8.2 fL (7.2-11.7); MONO % 7.2 % (0.0-10.0); NEUT # 9.1 K/uL (1.8-7.0); NEUT % 66.8 % (50.0-75.0); RBC 3.65 Mil/uL (4.40-5.90); RED CELL DISTRIBUTION WIDTH 14.4 % (11.5-14.5); WHITE BLOOD COUNT 13.7 K/uL (4.8-10.8)
[2015-09-19 08:40] LABS: ALT/SGPT 85 U/L (21-72); AST/SGOT 49 U/L (17-59); BLOOD UREA NITROGEN 24 mg/dL (9-20); GFR NON-AFRICAN AMERICAN > 60
[2015-09-19 08:41] LABS: ALB/GLOB RATIO 0.8 (1.0-2.1); CALCIUM 8.5 mg/dL (8.4-10.2)
[2015-09-19] MEDS: Zinc Oxide Topical 30 gm Tube TOP SCH ×2 (10:27→17:03)
[2015-09-19] MEDS: Phenytoin 100 mg/4 ml Oral Susp UD PEG SCH ×3 (10:27→17:03)
[2015-09-20] MEDS: Piperacill/Tazo 3.375gm in Dex 50 ML IVPB SCH ×3 (04:02→20:03)
--- NOTE | 2015-09-20 07:51 | CP.PCM.PN ---
<Mariella Wagner - Last Filed: 09/20/15 11:18> Subjective - Subjective Subjective: PGY1 Medicine Progress Note: Patient seen and examined at bedside this am. Patient is in no acute distress. Patient is resting comfortably in bed with heel lift boots. Patient is trached and and has peg tube in. No acute events overnight. Review of Systems - Review of Systems Systems not reviewed;Unavailable: Other (anoxic brain injury.) Objective - Vital Signs/Intake and Output Vital Signs (last 24 hours): Vital Signs - 24 hr 09/19/15 09/19/15 09/20/15 14:24 21:54 05:32 Temperature 97.9 F 99.1 F 98.5 F Pulse Rate 83 77 82 Respiratory 20 20 16 Rate Blood Pressure 124/84 120/81 127/71 O2 Sat by Pulse 100 100 100 Oximetry Intake and Output (last 12 hours): Intake & Output 09/19/15 09/20/15 09/20/15 18:59 06:59 18:59 Intake Total 1250 850 Output Total 400 800 Balance 850 50 Intake: Intake, IV Amount 50 Left Wrist 50 Tube Feeding 750 800 Other 500 Output: Urine 400 800 Urethral (Yoo) 400 800 - Medications Medications: Current Medications Aspirin (Aspirin) 325 mg PO DAILY [facility] Last Admin: 09/19/15 10:27 Dose: 325 mg Clopidogrel Bisulfate (Plavix) 75 mg PO DAILY [facility] Last Admin: 09/19/15 10:26 Dose: 75 mg Piperacillin Sod/Tazobactam Sod (Zosyn 3.375 Gm Iv Premix) 50 mls @ 100 mls/hr IVPB Q8H [facility] Last Admin: 09/20/15 04:02 Dose: 100 mls/hr Lisinopril (Zestril) 5 mg PO DAILY [facility] Last Admin: 09/19/15 10:27 Dose: 5 mg Metronidazole (Flagyl) 500 mg PEG Q8 [facility] Last Admin: 09/20/15 05:25 Dose: 500 mg Nystatin (Nystop Topical Powder) 1 applic TOP BID [facility] Last Admin: 09/19/15 17:04 Dose: 1 applic Petrolatum (Desitin Original) 0 gm TOP BID [facility] Last Admin: 09/19/15 17:03 Dose: 1 applic Phenytoin (Dilantin) 100 mg PEG TID [facility] Last Admin: 09/19/15 17:03 Dose: 100 mg Polyethylene Glycol (Miralax) 17 gm PEG BID [facility] Last Admin: 08/21/15 11:26 Dose: Not Given - Labs Labs (last 24 hours): Laboratory Results - last 24 hr 09/18/15 09/19/15 11:38 07:23 WBC 13.7 H RBC 3.65 L Hgb 11.3 L Hct 34.7 L MCV 95.1 H MCH 30.9 MCHC 32.5 L RDW 14.4 Plt Count 353 MPV 8.2 Neut % (Auto) 66.8 Lymph % (Auto) 11.0 L [place] % (Auto) 7.2 Eos % (Auto) 14.7 H Baso % (Auto) 0.3 Neut # 9.1 H Lymph # 1.5 [place] # 1.0 H Eos # 2.0 H Baso # 0.0 Sodium 138 Potassium 4.0 Chloride 102 Carbon Dioxide 29 Anion Gap 11 BUN 24 H Creatinine 0.6 L Est GFR ( Amer) > 60 Est GFR (Non-Af Amer) > 60 Random Glucose 141 H Calcium 8.5 Total Bilirubin 0.3 AST 49 ALT 85 H Alkaline Phosphatase 103 Total Protein 7.0 Albumin 3.0 L Globulin 4.0 H Albumin/Globulin Ratio 0.8 L C. difficile Ag & Toxin Negative - Constitutional Appears: No Acute Distress - Head Exam Head Exam: NORMAL INSPECTION, NORMOCEPHALIC - Eye Exam Eye Exam: EOMI, Normal appearance - ENT Exam ENT Exam: Mucous Membranes Moist - Neck Exam Neck exam: Normal Inspection. absent: Full Rom - Respiratory Exam Respiratory Exam: Clear to PA & Lateral. absent: Rales, Rhonchi, Wheezes - Cardiovascular Exam Cardiovascular Exam: REGULAR RHYTHM, +S1, +S2 - GI/Abdominal Exam GI & Abdominal Exam: Normal Bowel Sounds, Soft. absent: Distended, Tenderness - Extremities Exam Extremities exam: pedal pulses present. absent: pedal edema Additional comments: heel lift boots in place. - Neurological Exam Neurological exam: Altered. absent: Alert - Skin Skin Exam: Dry, Normal Color, Warm Assessment/Plan (1) Urinary tract infection Current Visit: Yes Status: Acute Comment: Afebrile overnight. WBC today is 10.7 (leukocytosis resolved). Urine culture 09/11/15 final + Pseudomonas Aeruginosa. ID on case- Dr. Patti. Repeat UA 09/17 was improved with LE 1+ and WBC 8. Clostridium Diff negative X1 f/u repeat Clostridium Diff - discontinue Flagyl if negative X2. Continue Flagyl 500 mg PEG Q8H-- DAY 3 Continue Zosyn 3.375 gm IVPB Q8H-- DAY 8 f/u CBC (2) Anoxic encephalopathy Current Visit: Yes Status: Acute Comment: 09/20: continue on vent. Heel support boots on for foot drop prevention. 09/15: Pt awake, on vent, no change in mental status 09/14: patient on SIMV. No acute distress. 09/11: [id number] dependent 09/10: Pt. bktbn-ps-gehr dependent. No change in mental status. 09/09: Patient awake. No acute changes. PEG feeds 10pm-8am. 09/08: Patient asleep and not responsive to verbal stimuli. NAD. Will continue to monitor. 09/07: Patient asleep, unable to arouse. No acute changes in condition. 09/06: Pt is awake, but only responsive to painful stimuli. Will continue to monitor 09/05: status unchanged, monitor 09/04: cont to monitor, pt unresponsive to verbal commands 09/03: No interval change, cont to monitor 09/02: Continue to monitor. 09/01: Continue to monitor, unchanged status. 08/31: status unchanged, will continue to monitor 08/30: awake and alert, eyes open, 08/29:Pt is more alert, able to open eyes; however, can not respond to verbal commands. will continue to monitor 08/28: Pt more alert today, continues to be unresponsive to verbal stimuli 08/27 No interval change in pt's condition, will continue to monitor 08/26 Patient's status remains the same 08/25 No improvement or change in mental status. Pt not responsive to verbal commands 08/24 Pt not responsive to verbal stimuli, only painful, unable to follow commands, pt continues to have swelling, minimal improvement, will continue to monitor, continue with dietary recommendations 08/22 Spontaneous movement, eyes open. given one dose of Lasix for increased swelling in upper extremities. GT bolus adjusted to dietary recommendations. 08/21 Spontaneous movement, opened eyes during examination. Per wound care nurse , Sabrina, pt is having skin breakdown due to excessive diarrhea. Recommended nystatin powder and sensicare cream to be applied on affected area. Pt's laxatives were removed. Gastric tube feeding will be made into 4 boluses, at 8am , 12pm, 4pm, 8 pm, per dietary recommendations. C diff cultures ordered. (3) Chest congestion Current Visit: Yes Status: Acute Comment: 09/20: Lungs clear bilaterally. Good air flow. 09/15: No change 09/14: Clear to auscultation. No acute distress. 09/12: CXR on 09/12 shows no changes. 09/09: No acute distress. Afebrile. 09/08: Not using accesory muscles. Afebrile. Sputum culture (07/28/15) with Pseudomonas aeruginosa s/p treatment Dr. Armstrong on case-following. (4) Transaminitis Current Visit: Yes Status: Acute Comment: 09/20: AST 49 , ALT 83 and Alk phos 97. Stable. 09/18: AST 42 , ALT 95 and Alk phos 117. Stable. 09/17: AST 50, [id number] and Alk phos 112. Stable. 09/14: AST 51, ALT 107 and AlK phos 118. Stable. 09/12: AST 49, ALT 99 and AlK phos 115. Improved. Recheck Q4days. Hep panel negative Continue to monitor LFTs (5) Edema of upper extremity Current Visit: Yes Status: Acute Comment: Continue warm compresses Venous doppler (07/19) showed superficial thrombosis of right cephalic vein. ( see official report). Monitor (6) Respiratory failure Current Visit: Yes Status: Acute Comment: Dr. Salgado (pul) on case-help appreciated Continue patient on trach SIMV. Patient is vent dependent. Unable to wean at this time. Monitor (7) STEMI (ST elevation myocardial infarction) Current Visit: Yes Status: Acute Comment: cardiac stents on 06/13/15. Continue Lisinopril 5mg PO daily Continue Plavix 75mg PO daily Continue ASA 325mg PO daily (8) Seizures Current Visit: Yes Status: Acute Comment: 09/20: No seizure activity observed. Monitor. 09/09:Continue current management. 09/01: dilantin level 5.7, continue current management. 08/30--> repeat Dilantin level in am, cont meds, SZ precaution Continue dilantin 100mg via PEG TID Continue to monitor for seizure activity (9) Deep tissue injury Current Visit: Yes Status: Acute Comment: Sacral Decub ulcer Stage II. Cont wound care Qshift As per wound care, apply protective ointment daily as a protective measure. Desitin TOP BID Nystatin Powder BID Turn Patient. Continue body checks. (10) Prophylactic measure Current Visit: Yes Status: Acute Comment: Plavix 75 mg PO daily [facility] <Donnell Ying M - Last Filed: 09/20/15 14:02> Objective - Vital Signs/Intake and Output Vital Signs (last 24 hours): Vital Signs - 24 hr 09/19/15 09/19/15 09/20/15 14:24 21:54 05:32 Temperature 97.9 F 99.1 F 98.5 F Pulse Rate 83 77 82 Respiratory 20 20 16 Rate Blood Pressure 124/84 120/81 127/71 O2 Sat by Pulse 100 100 100 Oximetry Intake and Output (last 12 hours): Intake & Output 09/19/15 09/20/15 09/20/15 18:59 06:59 18:59 Intake Total 1250 850 Output Total 400 800 Balance 850 50 Intake: Intake, IV Amount 50 Left Wrist 50 Tube Feeding 750 800 Other 500 Output: Urine 400 800 Urethral (Yoo) 400 800 - Medications Medications: Current Medications Aspirin (Aspirin) 325 mg PO DAILY [facility] Last Admin: 09/20/15 11:29 Dose: 325 mg Clopidogrel Bisulfate (Plavix) 75 mg PO DAILY [facility] Last Admin: 09/20/15 11:29 Dose: 75 mg Piperacillin Sod/Tazobactam Sod (Zosyn 3.375 Gm Iv Premix) 50 mls @ 100 mls/hr IVPB Q8H [facility] Last Admin: 09/20/15 11:34 Dose: 100 mls/hr Lisinopril (Zestril) 5 mg PO DAILY [facility] Last Admin: 09/20/15 11:30 Dose: 5 mg Metronidazole (Flagyl) 500 mg PEG Q8 [facility] Last Admin: 09/20/15 13:35 Dose: 500 mg Nystatin (Nystop Topical Powder) 1 applic TOP BID [facility] Last Admin: 09/20/15 11:30 Dose: 1 applic Petrolatum (Desitin Original) 0 gm TOP BID [facility] Last Admin: 09/20/15 11:31 Dose: 1 applic Phenytoin (Dilantin) 100 mg PEG TID [facility] Last Admin: 09/20/15 13:34 Dose: 100 mg Polyethylene Glycol (Miralax) 17 gm PEG BID [facility] Last Admin: 08/21/15 11:26 Dose: Not Given - Labs Labs (last 24 hours): Laboratory Results - last 24 hr 09/20/15 07:58 WBC 10.7 RBC 3.77 L Hgb 11.6 L Hct 35.9 MCV 95.3 H MCH 30.8 MCHC 32.3 L RDW 14.2 Plt Count 165 D MPV 8.6 Neut % (Auto) 63.5 Lymph % (Auto) 12.2 L [place] % (Auto) 6.6 Eos % (Auto) 17.1 H Baso % (Auto) 0.6 Neut # 6.8 Lymph # 1.3 [place] # 0.7 Eos # 1.8 H Baso # 0.1 Sodium 139 Potassium 3.9 Chloride 104 Carbon Dioxide 27 Anion Gap 11 BUN 23 H Creatinine 0.5 L Est GFR ( Amer) > 60 Est GFR (Non-Af Amer) > 60 Random Glucose 148 H Calcium 8.5 Phosphorus 3.7 Magnesium 2.3 Total Bilirubin 0.4 AST 49 ALT 83 H Alkaline Phosphatase 97 Total Protein 6.8 Albumin 2.9 L Globulin 3.9 Albumin/Globulin Ratio 0.7 L Attending/Attestation - Attestation I have personally seen and examined this patient.: Yes I have fully participated in the care of the patient.: Yes I have reviewed all pertinent clinical information: Yes Notes (Text): 09/20/15 14:01 Patient seen and examined with the resident earlier today. WBC trending down. Continue IV antibiotics. Continue current management.
[2015-09-20 08:30] LABS: ALBUMIN 2.9 g/dL (3.5-5.0)
[2015-09-20 08:33] LABS: ALB/GLOB RATIO 0.7 (1.0-2.1); ALT/SGPT 83 U/L (21-72); AST/SGOT 49 U/L (17-59); BLOOD UREA NITROGEN 23 mg/dL (9-20); GFR NON-AFRICAN AMERICAN > 60
[2015-09-20 08:34] LABS: CALCIUM 8.5 mg/dL (8.4-10.2)
[2015-09-20 08:45] LABS: BASO # 0.1 K/uL (0.0-0.2); BASO % 0.6 % (0.0-2.0); EOS # 1.8 K/uL (0.0-0.7); EOS % 17.1 % (0.0-4.0); HEMOGLOBIN 11.6 g/dL (12.0-18.0); LYMPH # 1.3 K/uL (1.0-4.3); LYMPH % 12.2 % (20.0-40.0); MEAN CELL VOLUME 95.3 fL (80.0-94.0); MEAN CORPUSCULAR HEMOGLOBIN 30.8 pg (27.0-31.0); MEAN CORPUSCULAR HGB CONC 32.3 g/dL (33.0-37.0); MEAN PLATELET VOLUME 8.6 fL (7.2-11.7); MONO # 0.7 K/uL (0.0-0.8); MONO % 6.6 % (0.0-10.0); NEUT # 6.8 K/uL (1.8-7.0); NEUT % 63.5 % (50.0-75.0); RBC 3.77 Mil/uL (4.40-5.90); RED CELL DISTRIBUTION WIDTH 14.2 % (11.5-14.5); WHITE BLOOD COUNT 10.7 K/uL (4.8-10.8)
[2015-09-20] MEDS: Phenytoin 100 mg/4 ml Oral Susp UD PEG SCH ×3 (11:29→18:07)
[2015-09-20] MEDS: Zinc Oxide Topical 30 gm Tube TOP SCH ×2 (11:31→18:08)
[2015-09-21] MEDS: Piperacill/Tazo 3.375gm in Dex 50 ML IVPB SCH ×3 (04:05→18:58)
[2015-09-21] MEDS: Phenytoin 100 mg/4 ml Oral Susp UD PEG SCH ×3 (10:50→18:05)
[2015-09-21] MEDS: Zinc Oxide Topical 30 gm Tube TOP SCH ×2 (10:51→18:15)
--- NOTE | 2015-09-21 13:07 | CP.PCM.PN ---
<Mariella Wagner - Last Filed: 09/21/15 13:03> Subjective - Subjective Subjective: PGY 1 Medicine Progress Note: Patient seen and examined at bedside. Patient in no acute distress. No acute events overnight. Patient has normal breathing pattern. No acute changes. Afebrile overnight. Review of Systems - Review of Systems Systems not reviewed;Unavailable: Other (anoxic brain injury) Objective - Vital Signs/Intake and Output Vital Signs (last 24 hours): Vital Signs - 24 hr 09/20/15 09/20/15 09/21/15 14:05 21:30 05:00 Temperature 98.6 F 98.0 F 98.5 F Pulse Rate 78 76 79 Respiratory 20 18 20 Rate Blood Pressure 134/87 120/72 124/84 O2 Sat by Pulse 99 100 100 Oximetry Intake and Output (last 12 hours): Intake & Output 09/20/15 09/21/15 09/21/15 18:59 06:59 18:59 Output Total 950 Balance -950 Output: Urine 950 Urethral (Yoo) 950 - Medications Medications: Current Medications Aspirin (Aspirin) 325 mg PO DAILY [facility] Last Admin: 09/21/15 10:50 Dose: 325 mg Clopidogrel Bisulfate (Plavix) 75 mg PO DAILY [facility] Last Admin: 09/21/15 10:50 Dose: 75 mg Piperacillin Sod/Tazobactam Sod (Zosyn 3.375 Gm Iv Premix) 50 mls @ 100 mls/hr IVPB Q8H [facility] Last Admin: 09/21/15 10:51 Dose: 100 mls/hr Lisinopril (Zestril) 5 mg PO DAILY [facility] Last Admin: 09/21/15 10:50 Dose: 5 mg Metronidazole (Flagyl) 500 mg PEG Q8 [facility] Last Admin: 09/21/15 06:00 Dose: 500 mg Nystatin (Nystop Topical Powder) 1 applic TOP BID [facility] Last Admin: 09/21/15 10:51 Dose: 1 applic Petrolatum (Desitin Original) 0 gm TOP BID [facility] Last Admin: 09/21/15 10:51 Dose: 1 applic Phenytoin (Dilantin) 100 mg PEG TID [facility] Last Admin: 09/21/15 10:50 Dose: 100 mg Polyethylene Glycol (Miralax) 17 gm PEG BID [facility] Last Admin: 08/21/15 11:26 Dose: Not Given - Constitutional Appears: No Acute Distress - Head Exam Head Exam: ATRAUMATIC, NORMAL INSPECTION - Eye Exam Eye Exam: EOMI, Normal appearance Pupil Exam: NORMAL ACCOMODATION, PERRL - ENT Exam ENT Exam: Mucous Membranes Moist - Neck Exam Neck exam: Full Rom - Respiratory Exam Respiratory Exam: Clear to PA & Lateral. absent: Rales, Rhonchi, Wheezes Additional comments: trach tube in place - Cardiovascular Exam Cardiovascular Exam: REGULAR RHYTHM, +S1, +S2 - GI/Abdominal Exam GI & Abdominal Exam: Normal Bowel Sounds. absent: Distended, Soft Additional comments: peg tube in place - Back Exam Back exam: FULL ROM - Neurological Exam Neurological exam: Altered - Skin Skin Exam: Normal Color, Warm Assessment/Plan (1) Urinary tract infection Current Visit: Yes Status: Acute Comment: Afebrile overnight. WBC yesterday was 10.7. f/u CBC on on and labs. Urine culture 09/11/15 final + Pseudomonas Aeruginosa. ID on case- Dr. Armstrong. Repeat UA 09/17 was improved with LE 1+ and WBC 8. Clostridium Diff negative X1 f/u repeat Clostridium Diff - discontinue Flagyl if negative X2. Continue Flagyl 500 mg PEG Q8H-- DAY 4 Continue Zosyn 3.375 gm IVPB Q8H-- DAY 9 (2) Anoxic encephalopathy Current Visit: Yes Status: Acute Comment: 09/21: continue on vent. Heel support boots on for foot drop prevention. 09/15: Pt awake, on vent, no change in mental status 09/14: patient on SIMV. No acute distress. 09/11: [id number] dependent 09/10: Pt. [id number]-[id number] dependent. No change in mental status. 09/09: Patient awake. No acute changes. PEG feeds 10pm-8am. 09/08: Patient asleep and not responsive to verbal stimuli. NAD. Will continue to monitor. 09/07: Patient asleep, unable to arouse. No acute changes in condition. 09/06: Pt is awake, but only responsive to painful stimuli. Will continue to monitor 09/05: status unchanged, monitor 09/04: cont to monitor, pt unresponsive to verbal commands 09/03: No interval change, cont to monitor 09/02: Continue to monitor. 09/01: Continue to monitor, unchanged status. 08/31: status unchanged, will continue to monitor 08/30: awake and alert, eyes open, 08/29:Pt is more alert, able to open eyes; however, can not respond to verbal commands. will continue to monitor 08/28: Pt more alert today, continues to be unresponsive to verbal stimuli 08/27 No interval change in pt's condition, will continue to monitor 08/26 Patient's status remains the same 08/25 No improvement or change in mental status. Pt not responsive to verbal commands 08/24 Pt not responsive to verbal stimuli, only painful, unable to follow commands, pt continues to have swelling, minimal improvement, will continue to monitor, continue with dietary recommendations 08/22 Spontaneous movement, eyes open. given one dose of Lasix for increased swelling in upper extremities. GT bolus adjusted to dietary recommendations. 08/21 Spontaneous movement, opened eyes during examination. Per wound care nurse , Sabrina, pt is having skin breakdown due to excessive diarrhea. Recommended nystatin powder and sensicare cream to be applied on affected area. Pt's laxatives were removed. Gastric tube feeding will be made into 4 boluses, at 8am , 12pm, 4pm, 8 pm, per dietary recommendations. C diff cultures ordered. (3) Chest congestion Current Visit: Yes Status: Acute Comment: 09/21: Lungs clear bilaterally. 09/15: No change 09/14: Clear to auscultation. No acute distress. 09/12: CXR on 09/12 shows no changes. 09/09: No acute distress. Afebrile. 09/08: Not using accesory muscles. Afebrile. Sputum culture (07/28/15) with Pseudomonas aeruginosa s/p treatment Dr. Armstrong on case-following. (4) Transaminitis Current Visit: Yes Status: Acute Comment: F/u CMP on and labs 09/20: AST 49 , ALT 83 and Alk phos 97. Stable. 09/18: AST 42 , ALT 95 and Alk phos 117. Stable. 09/17: AST 50, [id number] and Alk phos 112. Stable. 09/14: AST 51, ALT 107 and AlK phos 118. Stable. 09/12: AST 49, ALT 99 and AlK phos 115. Improved. Recheck Q4days. Hep panel negative Continue to monitor LFTs (5) Edema of upper extremity Current Visit: Yes Status: Acute Comment: Continue warm compresses Venous doppler (07/19) showed superficial thrombosis of right cephalic vein. ( see official report). Monitor (6) Respiratory failure Current Visit: Yes Status: Acute Comment: Patient is vent dependent. Dr. Salgado (pul) on case-help appreciated Continue patient on trach SIMV. Patient is vent dependent. Unable to wean at this time. Monitor (7) STEMI (ST elevation myocardial infarction) Current Visit: Yes Status: Acute Comment: cardiac stents on 06/13/15. Continue Lisinopril 5mg PO daily Continue Plavix 75mg PO daily Continue ASA 325mg PO daily (8) Seizures Current Visit: Yes Status: Acute Comment: 09/21: No seizure activity observed. Continue to monitor. 09/09:Continue current management. 09/01: dilantin level 5.7, continue current management. 08/30--> repeat Dilantin level in am, cont meds, SZ precaution Continue dilantin 100mg via PEG TID Continue to monitor for seizure activity (9) Deep tissue injury Current Visit: Yes Status: Acute Comment: Sacral Decub ulcer Stage II. Continue wound care Qshift As per wound care, apply protective ointment daily as a protective measure. Desitin TOP BID Nystatin Powder BID Continue body checks. (10) Prophylactic measure Current Visit: Yes Status: Acute Comment: Plavix 75 mg PO daily [facility] <StepanDonnell M - Last Filed: 09/21/15 14:09> Objective - Vital Signs/Intake and Output Vital Signs (last 24 hours): Vital Signs - 24 hr 09/20/15 09/21/15 21:30 05:00 Temperature 98.0 F 98.5 F Pulse Rate 76 79 Respiratory 18 20 Rate Blood Pressure 120/72 124/84 O2 Sat by Pulse 100 100 Oximetry Intake and Output (last 12 hours): Intake & Output 09/20/15 09/21/15 09/21/15 18:59 06:59 18:59 Output Total 950 Balance -950 Output: Urine 950 Urethral (Yoo) 950 - Medications Medications: Current Medications Aspirin (Aspirin) 325 mg PO DAILY [facility] Last Admin: 09/21/15 10:50 Dose: 325 mg Clopidogrel Bisulfate (Plavix) 75 mg PO DAILY [facility] Last Admin: 09/21/15 10:50 Dose: 75 mg Piperacillin Sod/Tazobactam Sod (Zosyn 3.375 Gm Iv Premix) 50 mls @ 100 mls/hr IVPB Q8H [facility] Last Admin: 09/21/15 10:51 Dose: 100 mls/hr Lisinopril (Zestril) 5 mg PO DAILY [facility] Last Admin: 09/21/15 10:50 Dose: 5 mg Metronidazole (Flagyl) 500 mg PEG Q8 [facility] Last Admin: 09/21/15 06:00 Dose: 500 mg Nystatin (Nystop Topical Powder) 1 applic TOP BID [facility] Last Admin: 09/21/15 10:51 Dose: 1 applic Petrolatum (Desitin Original) 0 gm TOP BID [facility] Last Admin: 09/21/15 10:51 Dose: 1 applic Phenytoin (Dilantin) 100 mg PEG TID [facility] Last Admin: 09/21/15 10:50 Dose: 100 mg Polyethylene Glycol (Miralax) 17 gm PEG BID [facility] Last Admin: 08/21/15 11:26 Dose: Not Given Attending/Attestation - Attestation I have personally seen and examined this patient.: Yes I have fully participated in the care of the patient.: Yes I have reviewed all pertinent clinical information: Yes Notes (Text): 09/21/15 14:08 Patient seen and examined with the resident. No change in clinical condition Continue current management.
--- NOTE | 2015-09-22 01:30 | CP.PCM.PN ---
<Nely Pate - Last Filed: 09/22/15 06:58> Subjective - Subjective Subjective: Patient seen and examined. Patient does not appear to be in acute respiratory distress. No acute changes in mental status or medical condition at this time. ROS not attainable due to mental status. Review of Systems - Review of Systems Systems not reviewed;Unavailable: Acuity of Condition Objective - Vital Signs/Intake and Output Vital Signs (last 24 hours): Vital Signs - 24 hr 09/21/15 09/21/15 09/21/15 05:00 14:00 22:31 Temperature 98.5 F 98.3 F 98.0 F Pulse Rate 79 85 73 Respiratory 20 16 20 Rate Blood Pressure 124/84 153/76 H 99/59 L O2 Sat by Pulse 100 100 100 Oximetry Intake and Output (last 12 hours): Intake & Output 09/21/15 09/21/15 09/22/15 06:59 18:59 06:59 Output Total 950 200 Balance -950 -200 Output: Urine 950 200 Urethral (Yoo) 950 200 Other: # Bowel Movements 1 - Medications Medications: Current Medications Aspirin (Aspirin) 325 mg PO DAILY [facility] Last Admin: 09/21/15 10:50 Dose: 325 mg Clopidogrel Bisulfate (Plavix) 75 mg PO DAILY [facility] Last Admin: 09/21/15 10:50 Dose: 75 mg Piperacillin Sod/Tazobactam Sod (Zosyn 3.375 Gm Iv Premix) 50 mls @ 100 mls/hr IVPB Q8H [facility] Last Admin: 09/21/15 18:58 Dose: 100 mls/hr Lisinopril (Zestril) 5 mg PO DAILY [facility] Last Admin: 09/21/15 10:50 Dose: 5 mg Metronidazole (Flagyl) 500 mg PEG Q8 [facility] Last Admin: 09/21/15 21:36 Dose: 500 mg Nystatin (Nystop Topical Powder) 1 applic TOP BID [facility] Last Admin: 09/21/15 18:15 Dose: 1 applic Petrolatum (Desitin Original) 0 gm TOP BID [facility] Last Admin: 09/21/15 18:15 Dose: 1 applic Phenytoin (Dilantin) 100 mg PEG TID [facility] Last Admin: 09/21/15 18:05 Dose: 100 mg Polyethylene Glycol (Miralax) 17 gm PEG BID [facility] Last Admin: 08/21/15 11:26 Dose: Not Given - Constitutional Appears: Non-toxic, No Acute Distress - Head Exam Head Exam: ATRAUMATIC, NORMOCEPHALIC - Eye Exam Eye Exam: EOMI, Normal appearance - ENT Exam ENT Exam: Mucous Membranes Moist - Respiratory Exam Respiratory Exam: Clear to PA & Lateral, NORMAL BREATHING PATTERN, UNREMARKABLE. absent: Rales, Rhonchi, Wheezes, Respiratory Distress - Cardiovascular Exam Cardiovascular Exam: REGULAR RHYTHM, +S1, +S2. absent: Diastolic murmur, Systolic Murmur - GI/Abdominal Exam GI & Abdominal Exam: Diminished Bowel Sounds, Soft. absent: Distended, Firm - Extremities Exam Extremities exam: pedal pulses present. absent: pedal edema - Neurological Exam Neurological exam: absent: Alert, Oriented x3 - Skin Skin Exam: Dry, Intact, Normal Color, Warm Assessment/Plan (1) Anoxic encephalopathy Current Visit: No (2) Chest congestion Current Visit: No (3) Urinary tract infection Current Visit: No (4) Transaminitis Current Visit: No (5) Respiratory failure Current Visit: No (6) CAD (coronary artery disease) Current Visit: No (7) STEMI (ST elevation myocardial infarction) Current Visit: No (8) Seizures Current Visit: No (9) Leukocytosis Current Visit: No (10) Prophylactic measure Current Visit: No <StepanSolangeDonnell M - Last Filed: 09/22/15 15:08> Objective - Vital Signs/Intake and Output Vital Signs (last 24 hours): Vital Signs - 24 hr 09/21/15 09/22/15 09/22/15 22:31 05:59 14:33 Temperature 98.0 F 98.6 F 98.3 F Pulse Rate 73 76 77 Respiratory 20 16 20 Rate Blood Pressure 99/59 L 113/75 115/68 O2 Sat by Pulse 100 100 95 Oximetry Intake and Output (last 12 hours): Intake & Output 09/21/15 09/22/15 09/22/15 18:59 06:59 18:59 Output Total 200 700 Balance -200 -700 Output: Urine 200 700 Urethral (Yoo) 200 700 Other: # Bowel Movements 1 - Medications Medications: Current Medications Aspirin (Aspirin) 325 mg PO DAILY [facility] Last Admin: 09/22/15 10:26 Dose: 325 mg Clopidogrel Bisulfate (Plavix) 75 mg PO DAILY [facility] Last Admin: 09/22/15 10:25 Dose: 75 mg Piperacillin Sod/Tazobactam Sod (Zosyn 3.375 Gm Iv Premix) 50 mls @ 100 mls/hr IVPB Q8H [facility] Last Admin: 09/22/15 11:27 Dose: 100 mls/hr Lisinopril (Zestril) 5 mg PO DAILY [facility] Last Admin: 09/22/15 10:25 Dose: 5 mg Metronidazole (Flagyl) 500 mg PEG Q8 [facility] Last Admin: 09/22/15 14:32 Dose: 500 mg Nystatin (Nystop Topical Powder) 1 applic TOP BID [facility] Last Admin: 09/22/15 10:35 Dose: 1 applic Petrolatum (Desitin Original) 0 gm TOP BID [facility] Last Admin: 09/22/15 10:34 Dose: 1 applic Phenytoin (Dilantin) 100 mg PEG TID [facility] Last Admin: 09/22/15 14:32 Dose: 100 mg Polyethylene Glycol (Miralax) 17 gm PEG BID [facility] Last Admin: 08/21/15 11:26 Dose: Not Given Attending/Attestation - Attestation I have personally seen and examined this patient.: Yes I have fully participated in the care of the patient.: Yes I have reviewed all pertinent clinical information: Yes Notes (Text): 09/22/15 15:07 Patient seen and examined with the residents earlier. Decubitus wound examined by turning the patient. Continue local treatment for decubitus ulcer. Discussed with staff at bedside. Continue current management. WBC trending down. CXR - no active disease Monitor temperature Afebrile IV Cefepime 1gm q12h started 07/21 Monitor (10) Prophylactic measure Current Visit: Yes Status: Acute Comment: Plavix 75 mg PO daily [facility]
[2015-09-22] MEDS: Piperacill/Tazo 3.375gm in Dex 50 ML IVPB SCH ×3 (04:10→19:53)
[2015-09-22] MEDS: Phenytoin 100 mg/4 ml Oral Susp UD PEG SCH ×3 (09:05→17:46)
[2015-09-22] MEDS: Zinc Oxide Topical 30 gm Tube TOP SCH ×2 (10:34→17:45)
[2015-09-23] MEDS: Piperacill/Tazo 3.375gm in Dex 50 ML IVPB SCH ×3 (03:01→19:58)
--- NOTE | 2015-09-23 04:14 | CP.PCM.PN ---
<Nely Pate - Last Filed: 09/23/15 04:10> Subjective - Subjective Subjective: Patient seen and examined. No acute change in mental status. Patient not responsive to verbal stimuli. Does not appear to be in acute distress. Review of Systems - Review of Systems Systems not reviewed;Unavailable: Acuity of Condition Objective - Vital Signs/Intake and Output Vital Signs (last 24 hours): Vital Signs - 24 hr 09/22/15 09/22/15 09/22/15 05:59 14:33 19:33 Temperature 98.6 F 98.3 F 97.4 F L Pulse Rate 76 77 87 Respiratory 16 20 20 Rate Blood Pressure 113/75 115/68 125/88 O2 Sat by Pulse 100 95 100 Oximetry Intake and Output (last 12 hours): Intake & Output 09/22/15 09/22/15 09/23/15 06:59 18:59 05:59 Output Total 700 1500 Balance -700 -1500 Output: Urine 700 1500 Urethral (Baker) 700 1500 - Medications Medications: Current Medications Aspirin (Aspirin) 325 mg PO DAILY [facility] Last Admin: 09/22/15 10:26 Dose: 325 mg Clopidogrel Bisulfate (Plavix) 75 mg PO DAILY [facility] Last Admin: 09/22/15 10:25 Dose: 75 mg Piperacillin Sod/Tazobactam Sod (Zosyn 3.375 Gm Iv Premix) 50 mls @ 100 mls/hr IVPB Q8H [facility] Last Admin: 09/23/15 03:01 Dose: 100 mls/hr Lisinopril (Zestril) 5 mg PO DAILY [facility] Last Admin: 09/22/15 10:25 Dose: 5 mg Metronidazole (Flagyl) 500 mg PEG Q8 [facility] Last Admin: 09/22/15 22:05 Dose: 500 mg Nystatin (Nystop Topical Powder) 1 applic TOP BID [facility] Last Admin: 09/22/15 17:46 Dose: 1 applic Petrolatum (Desitin Original) 0 gm TOP BID [facility] Last Admin: 09/22/15 17:45 Dose: 1 applic Phenytoin (Dilantin) 100 mg PEG TID [facility] Last Admin: 09/22/15 17:46 Dose: 100 mg Polyethylene Glycol (Miralax) 17 gm PEG BID [facility] Last Admin: 08/21/15 11:26 Dose: Not Given - Constitutional Appears: Cachectic, Chronically Ill - Head Exam Head Exam: ATRAUMATIC, NORMOCEPHALIC - Respiratory Exam Respiratory Exam: Clear to PA & Lateral, NORMAL BREATHING PATTERN, UNREMARKABLE. absent: Wheezes, Respiratory Distress - Cardiovascular Exam Cardiovascular Exam: REGULAR RHYTHM, +S1, +S2 - GI/Abdominal Exam GI & Abdominal Exam: Diminished Bowel Sounds, Soft. absent: Distended, Firm - Extremities Exam Extremities exam: normal inspection - Neurological Exam Neurological exam: absent: Alert - Skin Skin Exam: Dry, Normal Color, Warm Assessment/Plan (1) Anoxic encephalopathy Current Visit: Yes Status: Acute Comment: 09/23: Breathing on vent. no respiratory distress. NAD. 09/22: breathing on vent. Heel support boots on for foot drop prevention. no respiratory distress. 09/21: continue on vent. Heel support boots on for foot drop prevention. 09/15: Pt awake, on vent, no change in mental status 09/14: patient on SIMV. No acute distress. 09/11: auanw-ig-nudz dependent 09/10: Pt. lzbuj-dj-jyzn dependent. No change in mental status. 09/09: Patient awake. No acute changes. PEG feeds 10pm-8am. 09/08: Patient asleep and not responsive to verbal stimuli. NAD. Will continue to monitor. 09/07: Patient asleep, unable to arouse. No acute changes in condition. 09/06: Pt is awake, but only responsive to painful stimuli. Will continue to monitor 09/05: status unchanged, monitor 09/04: cont to monitor, pt unresponsive to verbal commands 09/03: No interval change, cont to monitor 09/02: Continue to monitor. 09/01: Continue to monitor, unchanged status. 08/31: status unchanged, will continue to monitor 08/30: awake and alert, eyes open, 08/29:Pt is more alert, able to open eyes; however, can not respond to verbal commands. will continue to monitor 08/28: Pt more alert today, continues to be unresponsive to verbal stimuli 08/27 No interval change in pt's condition, will continue to monitor 08/26 Patient's status remains the same 08/25 No improvement or change in mental status. Pt not responsive to verbal commands 08/24 Pt not responsive to verbal stimuli, only painful, unable to follow commands, pt continues to have swelling, minimal improvement, will continue to monitor, continue with dietary recommendations 08/22 Spontaneous movement, eyes open. given one dose of Lasix for increased swelling in upper extremities. GT bolus adjusted to dietary recommendations. 08/21 Spontaneous movement, opened eyes during examination. Per wound care nurse , Sabrina, pt is having skin breakdown due to excessive diarrhea. Recommended nystatin powder and sensicare cream to be applied on affected area. Pt's laxatives were removed. Gastric tube feeding will be made into 4 boluses, at 8am , 12pm, 4pm, 8 pm, per dietary recommendations. C diff cultures ordered. (2) Chest congestion Current Visit: Yes Status: Acute Comment: 09/23: Lungs CTA 09/22: lungs CTA bilaterally 09/21: Lungs clear bilaterally. 09/15: No change 09/14: Clear to auscultation. No acute distress. 09/12: CXR on 09/12 shows no changes. 09/09: No acute distress. Afebrile. 09/08: Not using accesory muscles. Afebrile. Sputum culture (07/28/15) with Pseudomonas aeruginosa s/p treatment Dr. Armstrong on case-following. (3) Urinary tract infection Current Visit: Yes Status: Acute Comment: Afebrile overnight. WBC on 09/20 was 10.7. f/u CBC on Tuesdays and . Urine culture 09/11/15 final + Pseudomonas Aeruginosa. ID on case- Dr. Armstrong. Repeat UA 09/17 was improved with LE 1+ and WBC 8. Clostridium Diff negative X1 f/u repeat Clostridium Diff - discontinue Flagyl if negative X2. Continue Flagyl 500 mg PEG Q8H-- DAY 4 Continue Zosyn 3.375 gm IVPB Q8H-- DAY 9 (4) Transaminitis Current Visit: Yes Status: Acute Comment: F/u CMP on Tuesdays and labs 09/20: AST 49 , ALT 83 and Alk phos 97. Stable. 09/18: AST 42 , ALT 95 and Alk phos 117. Stable. 09/17: AST 50, [id number] and Alk phos 112. Stable. 09/14: AST 51, ALT 107 and AlK phos 118. Stable. 09/12: AST 49, ALT 99 and AlK phos 115. Improved. Recheck Q4days. Hep panel negative Continue to monitor LFTs (5) Respiratory failure Current Visit: Yes Status: Acute Comment: Patient is vent dependent. Dr. Salgado (pul) on case-help appreciated Continue patient on trach SIMV. Patient is vent dependent. Unable to wean at this time. Monitor (6) CAD (coronary artery disease) Current Visit: Yes Status: Acute Comment: Continue Lisinopril 5mg PO daily Continue ASA 325mg PO daily Continue Plavix 75mg PO daily (7) STEMI (ST elevation myocardial infarction) Current Visit: Yes Status: Acute Comment: cardiac stents on 06/13/15. Continue Lisinopril 5mg PO daily Continue Plavix 75mg PO daily Continue ASA 325mg PO daily (8) Seizures Current Visit: Yes Status: Acute Comment: 09/23: No seizure activity reported or noted 09/22: Continue current management 09/21: No seizure activity observed. Continue to monitor. 09/09:Continue current management. 09/01: dilantin level 5.7, continue current management. 08/30--> repeat Dilantin level in am, cont meds, SZ precaution Continue dilantin 100mg via PEG TID Continue to monitor for seizure activity (9) Leukocytosis Current Visit: Yes Status: Acute Comment: 09/20: WBC 10.7; will f/u CBC on 09/25: WBC increased from to 17.2. replace baker catheter and f/u urine culture , urinalysis. f/u CXR in AM CXR - no active disease Monitor temperature Afebrile IV Cefepime 1gm q12h started 07/21 Monitor (10) Prophylactic measure Current Visit: Yes Status: Acute Comment: Plavix 75 mg PO daily [facility] <Donnell Ying M - Last Filed: 09/23/15 15:00> Objective - Vital Signs/Intake and Output Vital Signs (last 24 hours): Vital Signs - 24 hr 09/22/15 09/23/15 09/23/15 19:33 05:47 08:46 Temperature 97.4 F L 97.6 F Pulse Rate 87 82 Respiratory 20 14 Rate Blood Pressure 125/88 134/84 O2 Sat by Pulse 100 100 Oximetry 09/23/15 14:05 Temperature 98.6 F Pulse Rate 84 Respiratory 20 Rate Blood Pressure 142/78 O2 Sat by Pulse 99 Oximetry Intake and Output (last 12 hours): Intake & Output 09/22/15 09/23/15 09/23/15 19:59 06:59 18:59 Intake Total Output Total 350 Balance -350 Intake: Intake, IV Amount Left Wrist Tube Feeding Output: Gastric Amount Stomach Urine 350 Urethral (Baker) 350 Other: # Bowel Movements - Medications Medications: Current Medications Aspirin (Aspirin) 325 mg PO DAILY [facility] Last Admin: 09/23/15 09:02 Dose: 325 mg Clopidogrel Bisulfate (Plavix) 75 mg PO DAILY [facility] Last Admin: 09/23/15 09:03 Dose: 75 mg Piperacillin Sod/Tazobactam Sod (Zosyn 3.375 Gm Iv Premix) 50 mls @ 100 mls/hr IVPB Q8H [facility] Last Admin: 09/23/15 10:37 Dose: 100 mls/hr Lisinopril (Zestril) 5 mg PO DAILY [facility] Last Admin: 09/23/15 09:03 Dose: 5 mg Nystatin (Nystop Topical Powder) 1 applic TOP BID [facility] Last Admin: 09/23/15 09:03 Dose: 1 applic Petrolatum (Desitin Original) 0 gm TOP BID [facility] Last Admin: 09/23/15 09:02 Dose: 1 applic Phenytoin (Dilantin) 100 mg PEG TID [facility] Last Admin: 09/23/15 13:27 Dose: 100 mg Polyethylene Glycol (Miralax) 17 gm PEG BID [facility] Last Admin: 08/21/15 11:26 Dose: Not Given Attending/Attestation - Attestation I have personally seen and examined this patient.: Yes I have fully participated in the care of the patient.: Yes I have reviewed all pertinent clinical information: Yes Notes (Text): 09/23/15 15:00 Patient seen and examined with the resident. No change in clinical condition. Continue antibiotics as per recommendation of ID.
[2015-09-23] MEDS: Phenytoin 100 mg/4 ml Oral Susp UD PEG SCH ×3 (09:02→17:46)
[2015-09-23] MEDS: Zinc Oxide Topical 30 gm Tube TOP SCH ×2 (09:02→17:47)
[2015-09-24] MEDS: Piperacill/Tazo 3.375gm in Dex 50 ML IVPB SCH (03:27)
[2015-09-24 07:47] LABS: BASO # 0.1 K/uL (0.0-0.2); BASO % 0.6 % (0.0-2.0); EOS # 1.7 K/uL (0.0-0.7); EOS % 12.7 % (0.0-4.0); HEMOGLOBIN 11.7 g/dL (12.0-18.0); LYMPH # 1.4 K/uL (1.0-4.3); LYMPH % 10.4 % (20.0-40.0); MEAN CELL VOLUME 94.6 fL (80.0-94.0); MEAN CORPUSCULAR HEMOGLOBIN 30.9 pg (27.0-31.0); MEAN CORPUSCULAR HGB CONC 32.6 g/dL (33.0-37.0); MONO % 7.2 % (0.0-10.0); NEUT # 9.2 K/uL (1.8-7.0); NEUT % 69.1 % (50.0-75.0); RBC 3.78 Mil/uL (4.40-5.90); RED CELL DISTRIBUTION WIDTH 14.5 % (11.5-14.5); WHITE BLOOD COUNT 13.4 K/uL (4.8-10.8)
[2015-09-24 07:51] LABS: ALB/GLOB RATIO 0.8 (1.0-2.1); AST/SGOT 140 U/L (17-59); GFR NON-AFRICAN AMERICAN > 60
[2015-09-24 07:52] LABS: ALT/SGPT 209 U/L (21-72); BLOOD UREA NITROGEN 16 mg/dL (9-20)
--- NOTE | 2015-09-24 10:07 | CP.PCM.PN ---
<ViryJudith H - Last Filed: 09/24/15 14:55> Subjective - Subjective Subjective: PGY1 Medicine Note: Patient seen and examined at bedside this AM. No acute change in mental status. Patient spontaneously moving eyes. Patient not responsive to verbal or painful stimuli. Does not appear to be in acute distress. Review of Systems - Review of Systems Systems not reviewed;Unavailable: Altered Mental Status Objective - Vital Signs/Intake and Output Vital Signs (last 24 hours): Vital Signs - 24 hr 09/23/15 09/23/15 09/24/15 14:05 21:20 05:42 Temperature 98.6 F 99.2 F 97.4 F L Pulse Rate 84 82 83 Respiratory 20 12 20 Rate Blood Pressure 142/78 122/79 161/82 H O2 Sat by Pulse 99 100 100 Oximetry Intake and Output (last 12 hours): Intake & Output 09/23/15 09/24/15 09/24/15 18:59 06:59 18:59 Intake Total 1100 Output Total 350 825 Balance 750 -825 Intake: Intake, IV Amount 50 Left Wrist 50 Tube Feeding 750 Other 300 Output: Urine 350 825 Urethral (Yoo) 350 825 Other: # Bowel Movements 2 - Medications Medications: Current Medications Aspirin (Aspirin) 325 mg PO DAILY [facility] Last Admin: 09/23/15 09:02 Dose: 325 mg Clopidogrel Bisulfate (Plavix) 75 mg PO DAILY [facility] Last Admin: 09/23/15 09:03 Dose: 75 mg Piperacillin Sod/Tazobactam Sod (Zosyn 3.375 Gm Iv Premix) 50 mls @ 100 mls/hr IVPB Q8H [facility] Last Admin: 09/24/15 03:27 Dose: 100 mls/hr Lisinopril (Zestril) 5 mg PO DAILY [facility] Last Admin: 09/23/15 09:03 Dose: 5 mg Nystatin (Nystop Topical Powder) 1 applic TOP BID [facility] Last Admin: 09/23/15 17:47 Dose: 1 applic Petrolatum (Desitin Original) 0 gm TOP BID [facility] Last Admin: 09/23/15 17:47 Dose: 1 applic Phenytoin (Dilantin) 100 mg PEG TID [facility] Last Admin: 09/23/15 17:46 Dose: 100 mg Polyethylene Glycol (Miralax) 17 gm PEG BID [facility] Last Admin: 08/21/15 11:26 Dose: Not Given - Labs Labs (last 24 hours): Laboratory Results - last 24 hr 09/24/15 07:10 WBC 13.4 H RBC 3.78 L Hgb 11.7 L Hct 35.8 MCV 94.6 H MCH 30.9 MCHC 32.6 L RDW 14.5 Plt Count 347 D MPV 8.0 Neut % (Auto) 69.1 Lymph % (Auto) 10.4 L [place] % (Auto) 7.2 Eos % (Auto) 12.7 H Baso % (Auto) 0.6 Neut # 9.2 H Lymph # 1.4 [place] # 1.0 H Eos # 1.7 H Baso # 0.1 Sodium 140 Potassium 4.0 Chloride 103 Carbon Dioxide 30 Anion Gap 11 BUN 16 Creatinine 0.6 L Est GFR ( Amer) > 60 Est GFR (Non-Af Amer) > 60 Random Glucose 144 H Calcium 9.0 Phosphorus 3.4 Magnesium 2.1 Total Bilirubin 0.4 AST 140 H D ALT 209 H D Alkaline Phosphatase 100 Total Protein 6.9 Albumin 3.0 L Globulin 3.9 Albumin/Globulin Ratio 0.8 L - Constitutional Appears: Chronically Ill - Head Exam Head Exam: NORMAL INSPECTION - ENT Exam ENT Exam: Mucous Membranes Moist - Respiratory Exam Respiratory Exam: Clear to PA & Lateral, NORMAL BREATHING PATTERN, UNREMARKABLE - Cardiovascular Exam Cardiovascular Exam: REGULAR RHYTHM, +S1, +S2 - GI/Abdominal Exam GI & Abdominal Exam: Normal Bowel Sounds Additional comments: Peg tube insertion bloody - no discharge - Extremities Exam Additional comments: Left hand swollen - Neurological Exam Neurological exam: Altered - Skin Skin Exam: Dry, Normal Color Assessment/Plan (1) Anoxic encephalopathy Current Visit: Yes Status: Acute Comment: 09/24: Breathing on vent. No acute resp distress. 09/23: Breathing on vent. no respiratory distress. NAD. 09/22: breathing on vent. Heel support boots on for foot drop prevention. no respiratory distress. 09/21: continue on vent. Heel support boots on for foot drop prevention. 09/15: Pt awake, on vent, no change in mental status 09/14: patient on SIMV. No acute distress. 09/11: [id number]-[id number] dependent 09/10: Pt. aayfk-zv-wsoz dependent. No change in mental status. 09/09: Patient awake. No acute changes. PEG feeds 10pm-8am. 09/08: Patient asleep and not responsive to verbal stimuli. NAD. Will continue to monitor. 09/07: Patient asleep, unable to arouse. No acute changes in condition. 09/06: Pt is awake, but only responsive to painful stimuli. Will continue to monitor 09/05: status unchanged, monitor 09/04: cont to monitor, pt unresponsive to verbal commands 09/03: No interval change, cont to monitor 09/02: Continue to monitor. 09/01: Continue to monitor, unchanged status. 08/31: status unchanged, will continue to monitor 08/30: awake and alert, eyes open, 08/29:Pt is more alert, able to open eyes; however, can not respond to verbal commands. will continue to monitor 08/28: Pt more alert today, continues to be unresponsive to verbal stimuli 08/27 No interval change in pt's condition, will continue to monitor 08/26 Patient's status remains the same 08/25 No improvement or change in mental status. Pt not responsive to verbal commands 08/24 Pt not responsive to verbal stimuli, only painful, unable to follow commands, pt continues to have swelling, minimal improvement, will continue to monitor, continue with dietary recommendations 08/22 Spontaneous movement, eyes open. given one dose of Lasix for increased swelling in upper extremities. GT bolus adjusted to dietary recommendations. 08/21 Spontaneous movement, opened eyes during examination. Per wound care nurse Sabrina, pt is having skin breakdown due to excessive diarrhea. Recommended nystatin powder and sensicare cream to be applied on affected area. Pt's laxatives were removed. Gastric tube feeding will be made into 4 boluses, at 8am , 12pm, 4pm, 8 pm, per dietary recommendations. C diff cultures ordered. (2) Transaminitis Current Visit: Yes Status: Acute Comment: F/u CMP on Mondays and labs 09/24: AST 140, ALT 209, alk phos 100. Increasing LFTs. F/U dilantin level 09/20: AST 49 , ALT 83 and Alk phos 97. Stable. 09/18: AST 42 , ALT 95 and Alk phos 117. Stable. 09/17: AST 50, [id number] and Alk phos 112. Stable. 09/14: AST 51, ALT 107 and AlK phos 118. Stable. 09/12: AST 49, ALT 99 and AlK phos 115. Improved. Recheck Q4days. Hep panel negative Continue to monitor LFTs (3) Respiratory failure Current Visit: Yes Status: Acute Comment: Patient is vent dependent. Dr. Salgado (pulm) on case-help appreciated Continue patient on trach SIMV. Patient is vent dependent. Unable to wean at this time. Monitor (4) CAD (coronary artery disease) Current Visit: Yes Status: Acute Comment: Continue Lisinopril 5mg PO daily Continue ASA 325mg PO daily Continue Plavix 75mg PO daily (5) STEMI (ST elevation myocardial infarction) Current Visit: Yes Status: Acute Comment: cardiac stents on 06/13/15. Continue Lisinopril 5mg PO daily Continue Plavix 75mg PO daily Continue ASA 325mg PO daily (6) Seizures Current Visit: Yes Status: Acute Comment: 09/24: No seizure activity observed. 09/23: No seizure activity reported or noted 09/22: Continue current management 09/21: No seizure activity observed. Continue to monitor. 09/09:Continue current management. 09/01: dilantin level 5.7, continue current management. 08/30--> repeat Dilantin level in am, cont meds, SZ precaution Continue dilantin 100mg via PEG TID Continue to monitor for seizure activity (7) Chest congestion Current Visit: Yes Status: Acute Comment: 09/24: Lungs clear to auscultation 09/23: Lungs CTA 09/22: lungs CTA bilaterally 09/21: Lungs clear bilaterally. 09/15: No change 09/14: Clear to auscultation. No acute distress. 09/12: CXR on 09/12 shows no changes. 09/09: No acute distress. Afebrile. 09/08: Not using accesory muscles. Afebrile. Sputum culture (07/28/15) with Pseudomonas aeruginosa s/p treatment Dr. Armstrong on case-following. (8) UTI (lower urinary tract infection) Current Visit: Yes Status: Resolved Comment: 09/24: Stopped Zosyn on day 12 per phone conversation with Dr. Armstrong; follow up repeat C. Diff 09/23: Flagyl discontinued 09/17: urine Cx negative 09/11: Urine Cx pseudomonas - started zosyn 3.375 gm IVPB Q8H (day #12) Afebrile overnight. WBC on :13.4 ID on case- Dr. Armstrong - help very much appreciated (9) Prophylactic measure Current Visit: Yes Status: Acute Comment: Plavix 75 mg PO daily [facility] <Rashel Rodrigues - Last Filed: 09/24/15 15:13> Objective - Vital Signs/Intake and Output Vital Signs (last 24 hours): Vital Signs - 24 hr 09/23/15 09/24/15 09/24/15 21:20 05:42 08:00 Temperature 99.2 F 97.4 F L Pulse Rate 82 83 111 H Respiratory 12 20 Rate Blood Pressure 122/79 161/82 H O2 Sat by Pulse 100 100 Oximetry 09/24/15 10:45 Temperature Pulse Rate 111 H Respiratory Rate Blood Pressure 111/71 O2 Sat by Pulse Oximetry Intake and Output (last 12 hours): Intake & Output 09/23/15 09/24/15 09/24/15 18:59 06:59 18:59 Intake Total 1100 Output Total 350 825 Balance 750 -825 Intake: Intake, IV Amount 50 Left Wrist 50 Tube Feeding 750 Other 300 Output: Urine 350 825 Urethral (Yoo) 350 825 Other: # Bowel Movements 2 - Medications Medications: Current Medications Aspirin (Aspirin) 325 mg PO DAILY [facility] Last Admin: 09/24/15 10:43 Dose: 325 mg Clopidogrel Bisulfate (Plavix) 75 mg PO DAILY [facility] Last Admin: 09/24/15 10:43 Dose: 75 mg Lisinopril (Zestril) 5 mg PO DAILY [facility] Last Admin: 09/24/15 10:43 Dose: 5 mg Nystatin (Nystop Topical Powder) 1 applic TOP BID [facility] Last Admin: 09/24/15 10:45 Dose: 1 applic Petrolatum (Desitin Original) 0 gm TOP BID [facility] Last Admin: 09/24/15 10:44 Dose: 1 applic Phenytoin (Dilantin) 100 mg PEG TID [facility] Last Admin: 09/24/15 14:17 Dose: 100 mg Polyethylene Glycol (Miralax) 17 gm PEG BID [facility] Last Admin: 08/21/15 11:26 Dose: Not Given - Labs Labs (last 24 hours): Laboratory Results - last 24 hr 09/24/15 07:10 WBC 13.4 H RBC 3.78 L Hgb 11.7 L Hct 35.8 MCV 94.6 H MCH 30.9 MCHC 32.6 L RDW 14.5 Plt Count 347 D MPV 8.0 Neut % (Auto) 69.1 Lymph % (Auto) 10.4 L [place] % (Auto) 7.2 Eos % (Auto) 12.7 H Baso % (Auto) 0.6 Neut # 9.2 H Lymph # 1.4 [place] # 1.0 H Eos # 1.7 H Baso # 0.1 Sodium 140 Potassium 4.0 Chloride 103 Carbon Dioxide 30 Anion Gap 11 BUN 16 Creatinine 0.6 L Est GFR ( Amer) > 60 Est GFR (Non-Af Amer) > 60 Random Glucose 144 H Calcium 9.0 Phosphorus 3.4 Magnesium 2.1 Total Bilirubin 0.4 AST 140 H D ALT 209 H D Alkaline Phosphatase 100 Total Protein 6.9 Albumin 3.0 L Globulin 3.9 Albumin/Globulin Ratio 0.8 L Assessment/Plan (1) Anoxic encephalopathy Current Visit: Yes Status: Acute Comment: 09/24: Breathing on vent. No acute resp distress. 09/23: Breathing on vent. no respiratory distress. NAD. 09/22: breathing on vent. Heel support boots on for foot drop prevention. no respiratory distress. 09/21: continue on vent. Heel support boots on for foot drop prevention. 09/15: Pt awake, on vent, no change in mental status 09/14: patient on SIMV. No acute distress. 09/11: [id number]-[id number] dependent 09/10: Pt. hyita-he-xhgo dependent. No change in mental status. 09/09: Patient awake. No acute changes. PEG feeds 10pm-8am. 09/08: Patient asleep and not responsive to verbal stimuli. NAD. Will continue to monitor. 09/07: Patient asleep, unable to arouse. No acute changes in condition. 09/06: Pt is awake, but only responsive to painful stimuli. Will continue to monitor 09/05: status unchanged, monitor 09/04: cont to monitor, pt unresponsive to verbal commands 09/03: No interval change, cont to monitor 09/02: Continue to monitor. 09/01: Continue to monitor, unchanged status. 08/31: status unchanged, will continue to monitor 08/30: awake and alert, eyes open, 08/29:Pt is more alert, able to open eyes; however, can not respond to verbal commands. will continue to monitor 08/28: Pt more alert today, continues to be unresponsive to verbal stimuli 08/27 No interval change in pt's condition, will continue to monitor 08/26 Patient's status remains the same 08/25 No improvement or change in mental status. Pt not responsive to verbal commands 08/24 Pt not responsive to verbal stimuli, only painful, unable to follow commands, pt continues to have swelling, minimal improvement, will continue to monitor, continue with dietary recommendations 08/22 Spontaneous movement, eyes open. given one dose of Lasix for increased swelling in upper extremities. GT bolus adjusted to dietary recommendations. 08/21 Spontaneous movement, opened eyes during examination. Per wound care nurse , Sabrina, pt is having skin breakdown due to excessive diarrhea. Recommended nystatin powder and sensicare cream to be applied on affected area. Pt's laxatives were removed. Gastric tube feeding will be made into 4 boluses, at 8am , 12pm, 4pm, 8 pm, per dietary recommendations. C diff cultures ordered. (2) STEMI (ST elevation myocardial infarction) Current Visit: Yes Status: Acute Comment: cardiac stents on 06/13/15. Continue Lisinopril 5mg PO daily Continue Plavix 75mg PO daily Continue ASA 325mg PO daily (3) Respiratory failure Current Visit: Yes Status: Acute Comment: Patient is vent dependent. Dr. Salgado (pul) on case-help appreciated Continue patient on trach SIMV. Patient is vent dependent. Unable to wean at this time. Monitor (4) Seizures Current Visit: Yes Status: Acute Comment: 09/24: No seizure activity observed. 09/23: No seizure activity reported or noted 09/22: Continue current management 09/21: No seizure activity observed. Continue to monitor. 09/09:Continue current management. 09/01: dilantin level 5.7, continue current management. 08/30--> repeat Dilantin level in am, cont meds, SZ precaution Continue dilantin 100mg via PEG TID Continue to monitor for seizure activity (5) Prophylactic measure Current Visit: Yes Status: Acute Comment: Plavix 75 mg PO daily [facility] Attending/Attestation - Attestation I have personally seen and examined this patient.: Yes I have fully participated in the care of the patient.: Yes I have reviewed all pertinent clinical information: Yes Notes (Text): 09/24/15 15:11 Patient seen and examined with resident during round Patient is remaining unresponsive still on the vent Able to wean from ventilator LFT elevated his abx discontinued
[2015-09-24] MEDS: Phenytoin 100 mg/4 ml Oral Susp UD PEG SCH ×3 (10:43→18:45)
[2015-09-24] MEDS: Zinc Oxide Topical 30 gm Tube TOP SCH ×2 (10:44→18:46)
[2015-09-25] MEDS: Phenytoin 100 mg/4 ml Oral Susp UD PEG SCH ×3 (10:39→18:20)
[2015-09-25] MEDS: Zinc Oxide Topical 30 gm Tube TOP SCH ×2 (10:39→18:21)
--- NOTE | 2015-09-25 12:26 | CP.PCM.PN ---
<ViryJudith H - Last Filed: 09/25/15 12:36> Subjective - Subjective Subjective: PGY1/Dr. Rodrigues Medicine Note: Patient seen and examined at bedside. Patient in no acute distress. Patient on mechanical ventilation. Patient nonresponsive to verbal and painful stimuli. Patient moving eyes spontaneously. Review of Systems - Review of Systems Systems not reviewed;Unavailable: Altered Mental Status Objective - Vital Signs/Intake and Output Vital Signs (last 24 hours): Vital Signs - 24 hr 09/24/15 09/25/15 09/25/15 21:57 05:42 08:00 Temperature 97 F L 97.4 F L Pulse Rate 93 H 86 86 Respiratory 17 18 Rate Blood Pressure 117/76 145/85 O2 Sat by Pulse 100 99 Oximetry Intake and Output (last 12 hours): Intake & Output 09/24/15 09/25/15 09/25/15 18:59 06:59 18:59 Intake Total 900 740 Output Total 1350 Balance -450 740 Intake: Tube Feeding 750 500 Other 150 240 Output: Urine 1350 Urethral (Yoo) 1350 Other: # Bowel Movements 2 - Medications Medications: Current Medications Aspirin (Aspirin) 325 mg PO DAILY [facility] Last Admin: 09/25/15 10:39 Dose: 325 mg Clopidogrel Bisulfate (Plavix) 75 mg PO DAILY [facility] Last Admin: 09/25/15 10:39 Dose: 75 mg Lisinopril (Zestril) 5 mg PO DAILY [facility] Last Admin: 09/25/15 10:41 Dose: 5 mg Nystatin (Nystop Topical Powder) 1 applic TOP BID [facility] Last Admin: 09/25/15 10:39 Dose: 1 applic Petrolatum (Desitin Original) 0 gm TOP BID [facility] Last Admin: 09/25/15 10:39 Dose: 1 applic Phenytoin (Dilantin) 100 mg PEG TID [facility] Last Admin: 09/25/15 10:39 Dose: 100 mg Polyethylene Glycol (Miralax) 17 gm PEG BID [facility] Last Admin: 08/21/15 11:26 Dose: Not Given - Labs Labs (last 24 hours): Laboratory Results - last 24 hr 09/24/15 09/24/15 17:12 21:05 Phenytoin 10.4 C. difficile Ag & Toxin Negative - Constitutional Appears: Chronically Ill - Head Exam Head Exam: NORMAL INSPECTION - Eye Exam Eye Exam: EOMI - ENT Exam ENT Exam: Mucous Membranes Moist Additional comments: white exudate on lips - Respiratory Exam Respiratory Exam: Clear to PA & Lateral, NORMAL BREATHING PATTERN, UNREMARKABLE - Cardiovascular Exam Cardiovascular Exam: REGULAR RHYTHM, +S1, +S2 - GI/Abdominal Exam GI & Abdominal Exam: Normal Bowel Sounds, Soft - Extremities Exam Extremities exam: pedal pulses present. absent: pedal edema Additional comments: b/l hand edema - Neurological Exam Neurological exam: Motor Sensory Deficit (does not follow commands, unarousable) - Skin Skin Exam: Dry, Normal Color Assessment/Plan (1) Anoxic encephalopathy Current Visit: Yes Status: Acute Comment: 09/25: On mechanical ventilation 09/24: Breathing on vent. No acute resp distress. 09/23: Breathing on vent. no respiratory distress. NAD. 09/22: breathing on vent. Heel support boots on for foot drop prevention. no respiratory distress. 09/21: continue on vent. Heel support boots on for foot drop prevention. 09/15: Pt awake, on vent, no change in mental status 09/14: patient on SIMV. No acute distress. 09/11: [id number] dependent 09/10: Pt. qvbxr-sw-odzv dependent. No change in mental status. 09/09: Patient awake. No acute changes. PEG feeds 10pm-8am. 09/08: Patient asleep and not responsive to verbal stimuli. NAD. Will continue to monitor. 09/07: Patient asleep, unable to arouse. No acute changes in condition. 09/06: Pt is awake, but only responsive to painful stimuli. Will continue to monitor 09/05: status unchanged, monitor 09/04: cont to monitor, pt unresponsive to verbal commands 09/03: No interval change, cont to monitor 09/02: Continue to monitor. 09/01: Continue to monitor, unchanged status. 08/31: status unchanged, will continue to monitor 08/30: awake and alert, eyes open, 08/29:Pt is more alert, able to open eyes; however, can not respond to verbal commands. will continue to monitor 08/28: Pt more alert today, continues to be unresponsive to verbal stimuli 08/27 No interval change in pt's condition, will continue to monitor 08/26 Patient's status remains the same 08/25 No improvement or change in mental status. Pt not responsive to verbal commands 08/24 Pt not responsive to verbal stimuli, only painful, unable to follow commands, pt continues to have swelling, minimal improvement, will continue to monitor, continue with dietary recommendations 08/22 Spontaneous movement, eyes open. given one dose of Lasix for increased swelling in upper extremities. GT bolus adjusted to dietary recommendations. 08/21 Spontaneous movement, opened eyes during examination. Per wound care nurse , Sabrina, pt is having skin breakdown due to excessive diarrhea. Recommended nystatin powder and sensicare cream to be applied on affected area. Pt's laxatives were removed. Gastric tube feeding will be made into 4 boluses, at 8am , 12pm, 4pm, 8 pm, per dietary recommendations. C diff cultures ordered. (2) Transaminitis Current Visit: Yes Status: Acute Comment: F/u CMP on Mondays and labs 09/24: AST 140, ALT 209, alk phos 100. Increasing LFTs. F/U dilantin level 09/20: AST 49 , ALT 83 and Alk phos 97. Stable. 09/18: AST 42 , ALT 95 and Alk phos 117. Stable. 09/17: AST 50, XFX590 and Alk phos 112. Stable. 09/14: AST 51, ALT 107 and AlK phos 118. Stable. 09/12: AST 49, ALT 99 and AlK phos 115. Improved. Recheck Q4days. Hep panel negative Continue to monitor LFTs (3) Respiratory failure Current Visit: Yes Status: Acute Comment: Patient is vent dependent. Dr. Salgado (pul) on case-help appreciated Continue patient on trach SIMV. Patient is vent dependent. Unable to wean at this time. Monitor (4) CAD (coronary artery disease) Current Visit: Yes Status: Acute Comment: Continue Lisinopril 5mg PO daily Continue ASA 325mg PO daily Continue Plavix 75mg PO daily (5) STEMI (ST elevation myocardial infarction) Current Visit: Yes Status: Acute Comment: cardiac stents on 06/13/15. Continue Lisinopril 5mg PO daily Continue Plavix 75mg PO daily Continue ASA 325mg PO daily (6) Seizures Current Visit: Yes Status: Acute Comment: 09/25: No seizure activity observed 09/24: No seizure activity observed. 09/23: No seizure activity reported or noted 09/22: Continue current management 09/21: No seizure activity observed. Continue to monitor. 09/09:Continue current management. 09/01: dilantin level 5.7, continue current management. 08/30--> repeat Dilantin level in am, cont meds, SZ precaution Continue dilantin 100mg via PEG TID Continue to monitor for seizure activity (7) Chest congestion Current Visit: Yes Status: Acute Comment: 09/25: Lungs clear 09/24: Lungs clear to auscultation 09/23: Lungs CTA 09/22: lungs CTA bilaterally 09/21: Lungs clear bilaterally. 09/15: No change 09/14: Clear to auscultation. No acute distress. 09/12: CXR on 09/12 shows no changes. 09/09: No acute distress. Afebrile. 09/08: Not using accesory muscles. Afebrile. Sputum culture (07/28/15) with Pseudomonas aeruginosa s/p treatment Dr. Armstrong on case-following. (8) UTI (lower urinary tract infection) Current Visit: Yes Status: Resolved Comment: 09/24: Stopped Zosyn on day 12 per phone conversation with Dr. Armstrong; follow up repeat C. Diff 09/23: Flagyl discontinued 09/17: urine Cx negative 09/11: Urine Cx pseudomonas - started zosyn 3.375 gm IVPB Q8H (day #12) Afebrile overnight. WBC on :13.4 ID on case- Dr. Armstrong - help very much appreciated (9) Prophylactic measure Current Visit: Yes Status: Acute Comment: Plavix 75 mg PO daily [facility] <Rashel Rodrigues - Last Filed: 09/25/15 18:10> Objective - Vital Signs/Intake and Output Vital Signs (last 24 hours): Vital Signs - 24 hr 09/24/15 09/25/15 09/25/15 21:57 05:42 08:00 Temperature 97 F L 97.4 F L Pulse Rate 93 H 86 86 Respiratory 17 18 Rate Blood Pressure 117/76 145/85 O2 Sat by Pulse 100 99 Oximetry 09/25/15 14:31 Temperature 99 F Pulse Rate 89 Respiratory 16 Rate Blood Pressure 113/76 O2 Sat by Pulse 100 Oximetry Intake and Output (last 12 hours): Intake & Output 09/24/15 09/25/15 09/25/15 18:59 06:59 18:59 Intake Total 900 740 Output Total 1350 500 Balance -450 240 Intake: Tube Feeding 750 500 Other 150 240 Output: Urine 1350 500 Urethral (Yoo) 1350 500 Other: # Bowel Movements 2 - Medications Medications: Current Medications Aspirin (Aspirin) 325 mg PO DAILY [facility] Last Admin: 09/25/15 10:39 Dose: 325 mg Clopidogrel Bisulfate (Plavix) 75 mg PO DAILY [facility] Last Admin: 09/25/15 10:39 Dose: 75 mg Lisinopril (Zestril) 5 mg PO DAILY [facility] Last Admin: 09/25/15 10:41 Dose: 5 mg Nystatin (Nystop Topical Powder) 1 applic TOP BID [facility] Last Admin: 09/25/15 10:39 Dose: 1 applic Petrolatum (Desitin Original) 0 gm TOP BID [facility] Last Admin: 09/25/15 10:39 Dose: 1 applic Phenytoin (Dilantin) 100 mg PEG TID [facility] Last Admin: 09/25/15 13:48 Dose: 100 mg Polyethylene Glycol (Miralax) 17 gm PEG BID [facility] Last Admin: 08/21/15 11:26 Dose: Not Given - Labs Labs (last 24 hours): Laboratory Results - last 24 hr 09/24/15 21:05 C. difficile Ag & Toxin Negative Assessment/Plan (1) Anoxic encephalopathy Current Visit: Yes Status: Acute Comment: 09/25: On mechanical ventilation 09/24: Breathing on vent. No acute resp distress. 09/23: Breathing on vent. no respiratory distress. NAD. 09/22: breathing on vent. Heel support boots on for foot drop prevention. no respiratory distress. 09/21: continue on vent. Heel support boots on for foot drop prevention. 09/15: Pt awake, on vent, no change in mental status 09/14: patient on SIMV. No acute distress. 09/11: tqzku-hn-xoso dependent 09/10: Pt. glyxw-jc-otaw dependent. No change in mental status. 09/09: Patient awake. No acute changes. PEG feeds 10pm-8am. 09/08: Patient asleep and not responsive to verbal stimuli. NAD. Will continue to monitor. 09/07: Patient asleep, unable to arouse. No acute changes in condition. 09/06: Pt is awake, but only responsive to painful stimuli. Will continue to monitor 09/05: status unchanged, monitor 09/04: cont to monitor, pt unresponsive to verbal commands 09/03: No interval change, cont to monitor 09/02: Continue to monitor. 09/01: Continue to monitor, unchanged status. 08/31: status unchanged, will continue to monitor 08/30: awake and alert, eyes open, 08/29:Pt is more alert, able to open eyes; however, can not respond to verbal commands. will continue to monitor 08/28: Pt more alert today, continues to be unresponsive to verbal stimuli 08/27 No interval change in pt's condition, will continue to monitor 08/26 Patient's status remains the same 08/25 No improvement or change in mental status. Pt not responsive to verbal commands 08/24 Pt not responsive to verbal stimuli, only painful, unable to follow commands, pt continues to have swelling, minimal improvement, will continue to monitor, continue with dietary recommendations 08/22 Spontaneous movement, eyes open. given one dose of Lasix for increased swelling in upper extremities. GT bolus adjusted to dietary recommendations. 08/21 Spontaneous movement, opened eyes during examination. Per wound care nurse , Sabrina, pt is having skin breakdown due to excessive diarrhea. Recommended nystatin powder and sensicare cream to be applied on affected area. Pt's laxatives were removed. Gastric tube feeding will be made into 4 boluses, at 8am , 12pm, 4pm, 8 pm, per dietary recommendations. C diff cultures ordered. (2) STEMI (ST elevation myocardial infarction) Current Visit: Yes Status: Acute Comment: cardiac stents on 06/13/15. Continue Lisinopril 5mg PO daily Continue Plavix 75mg PO daily Continue ASA 325mg PO daily (3) Respiratory failure Current Visit: Yes Status: Acute Comment: Patient is vent dependent. Dr. Salgado (pul) on case-help appreciated Continue patient on trach SIMV. Patient is vent dependent. Unable to wean at this time. Monitor (4) Seizures Current Visit: Yes Status: Acute Comment: 09/25: No seizure activity observed 09/24: No seizure activity observed. 09/23: No seizure activity reported or noted 09/22: Continue current management 09/21: No seizure activity observed. Continue to monitor. 09/09:Continue current management. 09/01: dilantin level 5.7, continue current management. 08/30--> repeat Dilantin level in am, cont meds, SZ precaution Continue dilantin 100mg via PEG TID Continue to monitor for seizure activity (5) Prophylactic measure Current Visit: Yes Status: Acute Comment: Plavix 75 mg PO daily [facility] Attending/Attestation - Attestation I have personally seen and examined this patient.: Yes I have fully participated in the care of the patient.: Yes I have reviewed all pertinent clinical information: Yes
[2015-09-26] MEDS: Phenytoin 100 mg/4 ml Oral Susp UD PEG SCH ×3 (10:32→18:07)
[2015-09-26] MEDS: Zinc Oxide Topical 30 gm Tube TOP SCH ×2 (10:42→18:09)
--- NOTE | 2015-09-26 12:18 | CP.PCM.PN ---
<ViryJudith H - Last Filed: 09/26/15 12:15> Subjective - Subjective Subjective: PGY1/Dr. Rodrigues Medicine Note: Patient seen and examined at bedside. Patient unresponsive to verbal or painful stimuli. Patient on mechanical ventilation breathing at 14 bpm. Review of Systems - Review of Systems Systems not reviewed;Unavailable: Altered Mental Status Objective - Vital Signs/Intake and Output Vital Signs (last 24 hours): Vital Signs - 24 hr 09/25/15 09/25/15 09/26/15 14:31 21:00 05:00 Temperature 99 F 97.8 F 98.2 F Pulse Rate 89 86 85 Respiratory 16 19 22 Rate Blood Pressure 113/76 129/82 126/78 O2 Sat by Pulse 100 100 96 Oximetry Intake and Output (last 12 hours): Intake & Output 09/25/15 09/26/15 09/26/15 18:59 06:59 18:59 Intake Total 1740 950 Output Total 1200 635 Balance 540 315 Intake: Tube Feeding 1250 950 Albumin 250 Other 240 Output: Gastric Amount 10 Stomach 10 Urine 1200 625 Urethral (Yoo) 1200 625 Other: # Bowel Movements 2 3 - Medications Medications: Current Medications Aspirin (Aspirin) 325 mg PO DAILY [facility] Last Admin: 09/26/15 10:32 Dose: 325 mg Clopidogrel Bisulfate (Plavix) 75 mg PO DAILY [facility] Last Admin: 09/26/15 10:38 Dose: 75 mg Lisinopril (Zestril) 5 mg PO DAILY [facility] Last Admin: 09/26/15 10:32 Dose: 5 mg Nystatin (Nystop Topical Powder) 1 applic TOP BID [facility] Last Admin: 09/26/15 10:41 Dose: 1 applic Petrolatum (Desitin Original) 0 gm TOP BID [facility] Last Admin: 09/26/15 10:42 Dose: 1 applic Phenytoin (Dilantin) 100 mg PEG TID [facility] Last Admin: 09/26/15 10:32 Dose: 100 mg Polyethylene Glycol (Miralax) 17 gm PEG BID [facility] Last Admin: 08/21/15 11:26 Dose: Not Given - Constitutional Appears: Chronically Ill - Head Exam Head Exam: NORMAL INSPECTION - ENT Exam ENT Exam: Mucous Membranes Moist - Respiratory Exam Respiratory Exam: Clear to PA & Lateral, NORMAL BREATHING PATTERN, UNREMARKABLE - Cardiovascular Exam Cardiovascular Exam: REGULAR RHYTHM, +S1, +S2 - GI/Abdominal Exam GI & Abdominal Exam: Normal Bowel Sounds, Soft. absent: Distended, Firm - Extremities Exam Extremities exam: absent: pedal edema - Neurological Exam Neurological exam: Altered Assessment/Plan (1) Anoxic encephalopathy Current Visit: Yes Status: Acute Comment: 09/26: mechanical ventilation, breathing at 14 bpm 09/25: On mechanical ventilation 09/24: Breathing on vent. No acute resp distress. 09/23: Breathing on vent. no respiratory distress. NAD. 09/22: breathing on vent. Heel support boots on for foot drop prevention. no respiratory distress. 09/21: continue on vent. Heel support boots on for foot drop prevention. 09/15: Pt awake, on vent, no change in mental status 09/14: patient on SIMV. No acute distress. 09/11: [id number] dependent 09/10: Pt. aglxc-gn-[id number] dependent. No change in mental status. 09/09: Patient awake. No acute changes. PEG feeds 10pm-8am. 09/08: Patient asleep and not responsive to verbal stimuli. NAD. Will continue to monitor. 09/07: Patient asleep, unable to arouse. No acute changes in condition. 09/06: Pt is awake, but only responsive to painful stimuli. Will continue to monitor 09/05: status unchanged, monitor 09/04: cont to monitor, pt unresponsive to verbal commands 09/03: No interval change, cont to monitor 09/02: Continue to monitor. 09/01: Continue to monitor, unchanged status. 08/31: status unchanged, will continue to monitor 08/30: awake and alert, eyes open, 08/29:Pt is more alert, able to open eyes; however, can not respond to verbal commands. will continue to monitor 08/28: Pt more alert today, continues to be unresponsive to verbal stimuli 08/27 No interval change in pt's condition, will continue to monitor 08/26 Patient's status remains the same 08/25 No improvement or change in mental status. Pt not responsive to verbal commands 08/24 Pt not responsive to verbal stimuli, only painful, unable to follow commands, pt continues to have swelling, minimal improvement, will continue to monitor, continue with dietary recommendations 08/22 Spontaneous movement, eyes open. given one dose of Lasix for increased swelling in upper extremities. GT bolus adjusted to dietary recommendations. 08/21 Spontaneous movement, opened eyes during examination. Per wound care nurse , Sabrina, pt is having skin breakdown due to excessive diarrhea. Recommended nystatin powder and sensicare cream to be applied on affected area. Pt's laxatives were removed. Gastric tube feeding will be made into 4 boluses, at 8am , 12pm, 4pm, 8 pm, per dietary recommendations. C diff cultures ordered. (2) Transaminitis Current Visit: Yes Status: Acute Comment: F/u CMP on Mondays and labs 09/24: AST 140, ALT 209, alk phos 100. Increasing LFTs. F/U dilantin level 09/20: AST 49 , ALT 83 and Alk phos 97. Stable. 09/18: AST 42 , ALT 95 and Alk phos 117. Stable. 09/17: AST 50, [id number] and Alk phos 112. Stable. 09/14: AST 51, ALT 107 and AlK phos 118. Stable. 09/12: AST 49, ALT 99 and AlK phos 115. Improved. Recheck Q4days. Hep panel negative Continue to monitor LFTs (3) Respiratory failure Current Visit: Yes Status: Acute Comment: Patient is vent dependent. Dr. Salgado (pul) on case-help appreciated Continue patient on trach SIMV. Patient is vent dependent. Unable to wean at this time. Monitor (4) CAD (coronary artery disease) Current Visit: Yes Status: Acute Comment: Continue Lisinopril 5mg PO daily Continue ASA 325mg PO daily Continue Plavix 75mg PO daily (5) STEMI (ST elevation myocardial infarction) Current Visit: Yes Status: Acute Comment: cardiac stents on 06/13/15. Continue Lisinopril 5mg PO daily Continue Plavix 75mg PO daily Continue ASA 325mg PO daily (6) Seizures Current Visit: Yes Status: Acute Comment: 09/26: continue current management 09/25: No seizure activity observed 09/24: No seizure activity observed. 09/23: No seizure activity reported or noted 09/22: Continue current management 09/21: No seizure activity observed. Continue to monitor. 09/09:Continue current management. 09/01: dilantin level 5.7, continue current management. 08/30--> repeat Dilantin level in am, cont meds, SZ precaution Continue dilantin 100mg via PEG TID Continue to monitor for seizure activity (7) Chest congestion Current Visit: Yes Status: Acute Comment: 09/26: lungs clear 09/25: Lungs clear 09/24: Lungs clear to auscultation 09/23: Lungs CTA 09/22: lungs CTA bilaterally 09/21: Lungs clear bilaterally. 09/15: No change 09/14: Clear to auscultation. No acute distress. 09/12: CXR on 09/12 shows no changes. 09/09: No acute distress. Afebrile. 09/08: Not using accesory muscles. Afebrile. Sputum culture (07/28/15) with Pseudomonas aeruginosa s/p treatment Dr. Armstrong on case-following. (8) UTI (lower urinary tract infection) Current Visit: Yes Status: Resolved Comment: 09/26: C diff from 09/24 also negative 09/24: Stopped Zosyn on day 12 per phone conversation with Dr. Armstrong; follow up repeat C. Diff 09/23: Flagyl discontinued 09/17: urine Cx negative 09/11: Urine Cx pseudomonas - started zosyn 3.375 gm IVPB Q8H (day #12) Afebrile overnight. WBC on :13.4 ID on case- Dr. Armstrong - help very much appreciated (9) Prophylactic measure Current Visit: Yes Status: Acute Comment: Plavix 75 mg PO daily [facility] <Rashel Rodrigues - Last Filed: 09/26/15 14:45> Objective - Vital Signs/Intake and Output Vital Signs (last 24 hours): Vital Signs - 24 hr 09/25/15 09/26/15 09/26/15 21:00 05:00 14:23 Temperature 97.8 F 98.2 F 99.0 F Pulse Rate 86 85 87 Respiratory 19 22 20 Rate Blood Pressure 129/82 126/78 149/87 O2 Sat by Pulse 100 96 100 Oximetry Intake and Output (last 12 hours): Intake & Output 09/25/15 09/26/15 09/26/15 18:59 06:59 18:59 Intake Total 1740 950 Output Total 1200 635 Balance 540 315 Intake: Tube Feeding 1250 950 Albumin 250 Other 240 Output: Gastric Amount 10 Stomach 10 Urine 1200 625 Urethral (Yoo) 1200 625 Other: # Bowel Movements 2 3 - Medications Medications: Current Medications Aspirin (Aspirin) 325 mg PO DAILY [facility] Last Admin: 09/26/15 10:32 Dose: 325 mg Clopidogrel Bisulfate (Plavix) 75 mg PO DAILY [facility] Last Admin: 09/26/15 10:38 Dose: 75 mg Lisinopril (Zestril) 5 mg PO DAILY [facility] Last Admin: 09/26/15 10:32 Dose: 5 mg Nystatin (Nystop Topical Powder) 1 applic TOP BID [facility] Last Admin: 09/26/15 10:41 Dose: 1 applic Petrolatum (Desitin Original) 0 gm TOP BID [facility] Last Admin: 09/26/15 10:42 Dose: 1 applic Phenytoin (Dilantin) 100 mg PEG TID [facility] Last Admin: 09/26/15 14:38 Dose: 100 mg Polyethylene Glycol (Miralax) 17 gm PEG BID [facility] Last Admin: 08/21/15 11:26 Dose: Not Given Assessment/Plan (1) Anoxic encephalopathy Current Visit: Yes Status: Acute Comment: 09/26: mechanical ventilation, breathing at 14 bpm 09/25: On mechanical ventilation 09/24: Breathing on vent. No acute resp distress. 09/23: Breathing on vent. no respiratory distress. NAD. 09/22: breathing on vent. Heel support boots on for foot drop prevention. no respiratory distress. 09/21: continue on vent. Heel support boots on for foot drop prevention. 09/15: Pt awake, on vent, no change in mental status 09/14: patient on SIMV. No acute distress. 09/11: [id number]-[id number] dependent 09/10: Pt. [id number]-rc-[id number] dependent. No change in mental status. 09/09: Patient awake. No acute changes. PEG feeds 10pm-8am. 09/08: Patient asleep and not responsive to verbal stimuli. NAD. Will continue to monitor. 09/07: Patient asleep, unable to arouse. No acute changes in condition. 09/06: Pt is awake, but only responsive to painful stimuli. Will continue to monitor 09/05: status unchanged, monitor 09/04: cont to monitor, pt unresponsive to verbal commands 09/03: No interval change, cont to monitor 09/02: Continue to monitor. 09/01: Continue to monitor, unchanged status. 08/31: status unchanged, will continue to monitor 08/30: awake and alert, eyes open, 08/29:Pt is more alert, able to open eyes; however, can not respond to verbal commands. will continue to monitor 08/28: Pt more alert today, continues to be unresponsive to verbal stimuli 08/27 No interval change in pt's condition, will continue to monitor 08/26 Patient's status remains the same 08/25 No improvement or change in mental status. Pt not responsive to verbal commands 08/24 Pt not responsive to verbal stimuli, only painful, unable to follow commands, pt continues to have swelling, minimal improvement, will continue to monitor, continue with dietary recommendations 08/22 Spontaneous movement, eyes open. given one dose of Lasix for increased swelling in upper extremities. GT bolus adjusted to dietary recommendations. 08/21 Spontaneous movement, opened eyes during examination. Per wound care nurse , Sabrina, pt is having skin breakdown due to excessive diarrhea. Recommended nystatin powder and sensicare cream to be applied on affected area. Pt's laxatives were removed. Gastric tube feeding will be made into 4 boluses, at 8am , 12pm, 4pm, 8 pm, per dietary recommendations. C diff cultures ordered. (2) STEMI (ST elevation myocardial infarction) Current Visit: Yes Status: Acute Comment: cardiac stents on 06/13/15. Continue Lisinopril 5mg PO daily Continue Plavix 75mg PO daily Continue ASA 325mg PO daily (3) Respiratory failure Current Visit: Yes Status: Acute Comment: Patient is vent dependent. Dr. Salgado (pul) on case-help appreciated Continue patient on trach SIMV. Patient is vent dependent. Unable to wean at this time. Monitor (4) Seizures Current Visit: Yes Status: Acute Comment: 09/26: continue current management 09/25: No seizure activity observed 09/24: No seizure activity observed. 09/23: No seizure activity reported or noted 09/22: Continue current management 09/21: No seizure activity observed. Continue to monitor. 09/09:Continue current management. 09/01: dilantin level 5.7, continue current management. 08/30--> repeat Dilantin level in am, cont meds, SZ precaution Continue dilantin 100mg via PEG TID Continue to monitor for seizure activity (5) Prophylactic measure Current Visit: Yes Status: Acute Comment: Plavix 75 mg PO daily [facility] Attending/Attestation - Attestation I have personally seen and examined this patient.: Yes I have fully participated in the care of the patient.: Yes I have reviewed all pertinent clinical information: Yes Notes (Text): 09/26/15 14:44 Patient seen and examined during round with resident pt has no new events, no fever, cont vent mx as per Pulm Monitor OFF Abx
[2015-09-27 07:12] LABS: BASO # 0.1 K/uL (0.0-0.2); BASO % 0.6 % (0.0-2.0); EOS # 1.7 K/uL (0.0-0.7); EOS % 14.5 % (0.0-4.0); HEMOGLOBIN 12.1 g/dL (12.0-18.0); LYMPH # 1.4 K/uL (1.0-4.3); LYMPH % 11.5 % (20.0-40.0); MEAN CELL VOLUME 94.1 fL (80.0-94.0); MEAN CORPUSCULAR HEMOGLOBIN 30.9 pg (27.0-31.0); MEAN CORPUSCULAR HGB CONC 32.9 g/dL (33.0-37.0); MEAN PLATELET VOLUME 8.5 fL (7.2-11.7); MONO # 1.1 K/uL (0.0-0.8); MONO % 8.8 % (0.0-10.0); NEUT # 7.8 K/uL (1.8-7.0); NEUT % 64.6 % (50.0-75.0); NRBC % 0.1 % (0.0-2.0); RBC 3.92 Mil/uL (4.40-5.90); RED CELL DISTRIBUTION WIDTH 14.3 % (11.5-14.5)
[2015-09-27 07:46] LABS: ALBUMIN 3.2 g/dL (3.5-5.0)
[2015-09-27 07:49] LABS: ALB/GLOB RATIO 0.9 (1.0-2.1); ALT/SGPT 227 U/L (21-72); AST/SGOT 87 U/L (17-59); BLOOD UREA NITROGEN 16 mg/dL (9-20); GFR NON-AFRICAN AMERICAN > 60
[2015-09-27] MEDS: Phenytoin 100 mg/4 ml Oral Susp UD PEG SCH ×3 (09:04→17:21)
[2015-09-27] MEDS: Zinc Oxide Topical 30 gm Tube TOP SCH ×2 (12:16→17:22)
[2015-09-27] MEDS: Dextrose 5%/0.45% NS 1,000 ML IV SCH (12:39)
--- NOTE | 2015-09-27 14:46 | CP.PCM.PN ---
<Judith Baires H - Last Filed: 09/27/15 14:43> Subjective - Subjective Subjective: PGY1/Dr. Rodrigues Medicine Note: Patient seen and examined at bedside this AM. Patient nonresponsive to verbal and painful stimuli. Patient opens eyes spontaneously. Patient nonverbal. No difference in mental status. Review of Systems - Review of Systems Systems not reviewed;Unavailable: Altered Mental Status Objective - Vital Signs/Intake and Output Vital Signs (last 24 hours): Vital Signs - 24 hr 09/26/15 09/26/15 09/27/15 19:15 21:15 06:00 Temperature 97.8 F 97.8 F Pulse Rate 87 87 89 Respiratory 17 20 Rate Blood Pressure 137/87 154/71 H O2 Sat by Pulse 100 100 Oximetry 09/27/15 13:46 Temperature 98.4 F Pulse Rate 89 Respiratory 16 Rate Blood Pressure 127/74 O2 Sat by Pulse 98 Oximetry Intake and Output (last 12 hours): Intake & Output 09/26/15 09/27/15 09/27/15 18:59 06:59 18:59 Output Total 1350 900 Balance -1350 -900 Output: Urine 1350 900 Urethral (Yoo) 1350 900 Other: # Bowel Movements 2 - Medications Medications: Current Medications Aspirin (Aspirin) 325 mg PO DAILY [facility] Last Admin: 09/27/15 09:05 Dose: 325 mg Clopidogrel Bisulfate (Plavix) 75 mg PO DAILY [facility] Last Admin: 09/27/15 09:05 Dose: 75 mg Dextrose/Sodium Chloride (Dextrose 5%/0.45% Ns 1000 Ml) 1,000 mls @ 50 mls/hr IV .Q20H [facility] Last Admin: 09/27/15 12:39 Dose: 50 mls/hr Lisinopril (Zestril) 5 mg PO DAILY [facility] Last Admin: 09/27/15 09:05 Dose: 5 mg Nystatin (Nystop Topical Powder) 1 applic TOP BID [facility] Last Admin: 09/27/15 12:17 Dose: 1 applic Petrolatum (Desitin Original) 0 gm TOP BID [facility] Last Admin: 09/27/15 12:16 Dose: 1 applic Phenytoin (Dilantin) 100 mg PEG TID [facility] Last Admin: 09/27/15 13:49 Dose: 100 mg Polyethylene Glycol (Miralax) 17 gm PEG BID [facility] Last Admin: 08/21/15 11:26 Dose: Not Given - Labs Labs (last 24 hours): Laboratory Results - last 24 hr 09/27/15 06:36 WBC 12.0 H RBC 3.92 L Hgb 12.1 Hct 36.9 MCV 94.1 H MCH 30.9 MCHC 32.9 L RDW 14.3 Plt Count 334 MPV 8.5 Neut % (Auto) 64.6 Lymph % (Auto) 11.5 L Dyer % (Auto) 8.8 Eos % (Auto) 14.5 H Baso % (Auto) 0.6 Neut # 7.8 H Lymph # 1.4 Dyer # 1.1 H Eos # 1.7 H Baso # 0.1 Sodium 139 Potassium 3.8 Chloride 103 Carbon Dioxide 28 Anion Gap 13 BUN 16 Creatinine 0.4 L Est GFR ( Amer) > 60 Est GFR (Non-Af Amer) > 60 Random Glucose 139 H Calcium 9.0 Phosphorus 3.9 Magnesium 2.1 Total Bilirubin 0.4 AST 87 H D ALT 227 H Alkaline Phosphatase 117 Total Protein 7.0 Albumin 3.2 L Globulin 3.7 Albumin/Globulin Ratio 0.9 L - Constitutional Appears: Chronically Ill - Head Exam Head Exam: NORMAL INSPECTION - Eye Exam Eye Exam: absent: Scleral icterus - ENT Exam ENT Exam: Mucous Membranes Moist - Respiratory Exam Respiratory Exam: Clear to PA & Lateral, NORMAL BREATHING PATTERN - Cardiovascular Exam Cardiovascular Exam: REGULAR RHYTHM, +S1, +S2 - GI/Abdominal Exam GI & Abdominal Exam: Normal Bowel Sounds, Soft. absent: Distended - Extremities Exam Extremities exam: normal capillary refill. absent: pedal edema Additional comments: b/l hand edema - Neurological Exam Neurological exam: Altered - Skin Skin Exam: Dry, Normal Color Assessment/Plan (1) Anoxic encephalopathy Current Visit: Yes Status: Acute Comment: 09/27: mechanical ventilation 09/26: mechanical ventilation, breathing at 14 bpm 09/25: On mechanical ventilation 09/24: Breathing on vent. No acute resp distress. 09/23: Breathing on vent. no respiratory distress. NAD. 09/22: breathing on vent. Heel support boots on for foot drop prevention. no respiratory distress. 09/21: continue on vent. Heel support boots on for foot drop prevention. 09/15: Pt awake, on vent, no change in mental status 09/14: patient on SIMV. No acute distress. 09/11: [id number] dependent 09/10: Pt. jhezj-ap-svyr dependent. No change in mental status. 09/09: Patient awake. No acute changes. PEG feeds 10pm-8am. 09/08: Patient asleep and not responsive to verbal stimuli. NAD. Will continue to monitor. 09/07: Patient asleep, unable to arouse. No acute changes in condition. 09/06: Pt is awake, but only responsive to painful stimuli. Will continue to monitor 09/05: status unchanged, monitor 09/04: cont to monitor, pt unresponsive to verbal commands 09/03: No interval change, cont to monitor 09/02: Continue to monitor. 09/01: Continue to monitor, unchanged status. 08/31: status unchanged, will continue to monitor 08/30: awake and alert, eyes open, 08/29:Pt is more alert, able to open eyes; however, can not respond to verbal commands. will continue to monitor 08/28: Pt more alert today, continues to be unresponsive to verbal stimuli 08/27 No interval change in pt's condition, will continue to monitor 08/26 Patient's status remains the same 08/25 No improvement or change in mental status. Pt not responsive to verbal commands 08/24 Pt not responsive to verbal stimuli, only painful, unable to follow commands, pt continues to have swelling, minimal improvement, will continue to monitor, continue with dietary recommendations 08/22 Spontaneous movement, eyes open. given one dose of Lasix for increased swelling in upper extremities. GT bolus adjusted to dietary recommendations. 08/21 Spontaneous movement, opened eyes during examination. Per wound care nurse , Sabrina, pt is having skin breakdown due to excessive diarrhea. Recommended nystatin powder and sensicare cream to be applied on affected area. Pt's laxatives were removed. Gastric tube feeding will be made into 4 boluses, at 8am , 12pm, 4pm, 8 pm, per dietary recommendations. C diff cultures ordered. (2) Transaminitis Current Visit: Yes Status: Acute Comment: F/u CMP on Mondays and labs 09/27: AST 87, ALT 227, ALP 117, tbili 0.4 Dilantin level 10.4 started D5-1/2NS @ 50cc/hr 09/24: AST 140, ALT 209, alk phos 100. Increasing LFTs. 09/20: AST 49 , ALT 83 and Alk phos 97. Stable. 09/18: AST 42 , ALT 95 and Alk phos 117. Stable. 09/17: AST 50, [id number] and Alk phos 112. Stable. 09/14: AST 51, ALT 107 and AlK phos 118. Stable. 09/12: AST 49, ALT 99 and AlK phos 115. Improved. Recheck Q4days. Hep panel negative Continue to monitor LFTs (3) Respiratory failure Current Visit: Yes Status: Acute Comment: Patient is vent dependent. Dr. Salgado (pul) on case-help appreciated Continue patient on trach SIMV. Patient is vent dependent. Unable to wean at this time. Monitor (4) CAD (coronary artery disease) Current Visit: Yes Status: Acute Comment: Continue Lisinopril 5mg PO daily Continue ASA 325mg PO daily Continue Plavix 75mg PO daily (5) STEMI (ST elevation myocardial infarction) Current Visit: Yes Status: Acute Comment: cardiac stents on 06/13/15. Continue Lisinopril 5mg PO daily Continue Plavix 75mg PO daily Continue ASA 325mg PO daily (6) Seizures Current Visit: Yes Status: Acute Comment: 09/27: no seizure activity observed 09/26: continue current management 09/25: No seizure activity observed 09/24: No seizure activity observed. 09/23: No seizure activity reported or noted 09/22: Continue current management 09/21: No seizure activity observed. Continue to monitor. 09/09:Continue current management. 09/01: dilantin level 5.7, continue current management. 08/30--> repeat Dilantin level in am, cont meds, SZ precaution Continue dilantin 100mg via PEG TID Continue to monitor for seizure activity (7) Prophylactic measure Current Visit: Yes Status: Acute Comment: Plavix 75 mg PO daily [facility] <RaviRashel - Last Filed: 09/27/15 17:36> Objective - Vital Signs/Intake and Output Vital Signs (last 24 hours): Vital Signs - 24 hr 09/26/15 09/26/15 09/27/15 19:15 21:15 06:00 Temperature 97.8 F 97.8 F Pulse Rate 87 87 89 Respiratory 17 20 Rate Blood Pressure 137/87 154/71 H O2 Sat by Pulse 100 100 Oximetry 09/27/15 13:46 Temperature 98.4 F Pulse Rate 89 Respiratory 16 Rate Blood Pressure 127/74 O2 Sat by Pulse 98 Oximetry Intake and Output (last 12 hours): Intake & Output 09/26/15 09/27/15 09/27/15 18:59 06:59 18:59 Output Total 1350 900 Balance -1350 -900 Output: Urine 1350 900 Urethral (Yoo) 1350 900 Other: # Bowel Movements 2 - Medications Medications: Current Medications Aspirin (Aspirin) 325 mg PO DAILY [facility] Last Admin: 09/27/15 09:05 Dose: 325 mg Clopidogrel Bisulfate (Plavix) 75 mg PO DAILY [facility] Last Admin: 09/27/15 09:05 Dose: 75 mg Dextrose/Sodium Chloride (Dextrose 5%/0.45% Ns 1000 Ml) 1,000 mls @ 50 mls/hr IV .Q20H [facility] Last Admin: 09/27/15 12:39 Dose: 50 mls/hr Lisinopril (Zestril) 5 mg PO DAILY [facility] Last Admin: 09/27/15 09:05 Dose: 5 mg Nystatin (Nystop Topical Powder) 1 applic TOP BID [facility] Last Admin: 09/27/15 17:22 Dose: 1 applic Petrolatum (Desitin Original) 0 gm TOP BID [facility] Last Admin: 09/27/15 17:22 Dose: 1 applic Phenytoin (Dilantin) 100 mg PEG TID [facility] Last Admin: 09/27/15 17:21 Dose: 100 mg Polyethylene Glycol (Miralax) 17 gm PEG BID [facility] Last Admin: 08/21/15 11:26 Dose: Not Given - Labs Labs (last 24 hours): Laboratory Results - last 24 hr 09/27/15 06:36 WBC 12.0 H RBC 3.92 L Hgb 12.1 Hct 36.9 MCV 94.1 H MCH 30.9 MCHC 32.9 L RDW 14.3 Plt Count 334 MPV 8.5 Neut % (Auto) 64.6 Lymph % (Auto) 11.5 L Dyer % (Auto) 8.8 Eos % (Auto) 14.5 H Baso % (Auto) 0.6 Neut # 7.8 H Lymph # 1.4 Dyer # 1.1 H Eos # 1.7 H Baso # 0.1 Sodium 139 Potassium 3.8 Chloride 103 Carbon Dioxide 28 Anion Gap 13 BUN 16 Creatinine 0.4 L Est GFR ( Amer) > 60 Est GFR (Non-Af Amer) > 60 Random Glucose 139 H Calcium 9.0 Phosphorus 3.9 Magnesium 2.1 Total Bilirubin 0.4 AST 87 H D ALT 227 H Alkaline Phosphatase 117 Total Protein 7.0 Albumin 3.2 L Globulin 3.7 Albumin/Globulin Ratio 0.9 L Assessment/Plan (1) Anoxic encephalopathy Current Visit: Yes Status: Acute Comment: 09/27: mechanical ventilation 09/26: mechanical ventilation, breathing at 14 bpm 09/25: On mechanical ventilation 09/24: Breathing on vent. No acute resp distress. 09/23: Breathing on vent. no respiratory distress. NAD. 09/22: breathing on vent. Heel support boots on for foot drop prevention. no respiratory distress. 09/21: continue on vent. Heel support boots on for foot drop prevention. 09/15: Pt awake, on vent, no change in mental status 09/14: patient on SIMV. No acute distress. 09/11: [id number] dependent 09/10: Pt. njlmi-fg-uoxx dependent. No change in mental status. 09/09: Patient awake. No acute changes. PEG feeds 10pm-8am. 09/08: Patient asleep and not responsive to verbal stimuli. NAD. Will continue to monitor. 09/07: Patient asleep, unable to arouse. No acute changes in condition. 09/06: Pt is awake, but only responsive to painful stimuli. Will continue to monitor 09/05: status unchanged, monitor 09/04: cont to monitor, pt unresponsive to verbal commands 09/03: No interval change, cont to monitor 09/02: Continue to monitor. 09/01: Continue to monitor, unchanged status. 08/31: status unchanged, will continue to monitor 08/30: awake and alert, eyes open, 08/29:Pt is more alert, able to open eyes; however, can not respond to verbal commands. will continue to monitor 08/28: Pt more alert today, continues to be unresponsive to verbal stimuli 08/27 No interval change in pt's condition, will continue to monitor 08/26 Patient's status remains the same 08/25 No improvement or change in mental status. Pt not responsive to verbal commands 08/24 Pt not responsive to verbal stimuli, only painful, unable to follow commands, pt continues to have swelling, minimal improvement, will continue to monitor, continue with dietary recommendations 08/22 Spontaneous movement, eyes open. given one dose of Lasix for increased swelling in upper extremities. GT bolus adjusted to dietary recommendations. 08/21 Spontaneous movement, opened eyes during examination. Per wound care nurse , Sabrina, pt is having skin breakdown due to excessive diarrhea. Recommended nystatin powder and sensicare cream to be applied on affected area. Pt's laxatives were removed. Gastric tube feeding will be made into 4 boluses, at 8am , 12pm, 4pm, 8 pm, per dietary recommendations. C diff cultures ordered. (2) STEMI (ST elevation myocardial infarction) Current Visit: Yes Status: Acute Comment: cardiac stents on 06/13/15. Continue Lisinopril 5mg PO daily Continue Plavix 75mg PO daily Continue ASA 325mg PO daily (3) Respiratory failure Current Visit: Yes Status: Acute Comment: Patient is vent dependent. Dr. Salgado (pul) on case-help appreciated Continue patient on trach SIMV. Patient is vent dependent. Unable to wean at this time. Monitor (4) Seizures Current Visit: Yes Status: Acute Comment: 09/27: no seizure activity observed 09/26: continue current management 09/25: No seizure activity observed 09/24: No seizure activity observed. 09/23: No seizure activity reported or noted 09/22: Continue current management 09/21: No seizure activity observed. Continue to monitor. 09/09:Continue current management. 09/01: dilantin level 5.7, continue current management. 08/30--> repeat Dilantin level in am, cont meds, SZ precaution Continue dilantin 100mg via PEG TID Continue to monitor for seizure activity (5) Prophylactic measure Current Visit: Yes Status: Acute Comment: Plavix 75 mg PO daily [facility] Attending/Attestation - Attestation I have personally seen and examined this patient.: Yes I have fully participated in the care of the patient.: Yes I have reviewed all pertinent clinical information: Yes Notes (Text): 09/27/15 17:35 Patient seen and examined during round with residents pt has no new events, cont Vent support cont meds, fu CMP for elev LFT
[2015-09-28] MEDS: Dextrose 5%/0.45% NS 1,000 ML IV SCH (09:06)
[2015-09-28] MEDS: Zinc Oxide Topical 30 gm Tube TOP SCH ×2 (09:09→17:25)
[2015-09-28] MEDS: Phenytoin 100 mg/4 ml Oral Susp UD PEG SCH ×3 (09:09→17:26)
--- NOTE | 2015-09-28 12:48 | CP.PCM.PN ---
<ViryJudith H - Last Filed: 09/28/15 12:45> Subjective - Subjective Subjective: PGY1/Dr. Rodrigues Medicine Note: Patient seen and examined at bedside this AM. Patient unresponsive to verbal and painful stimuli. Patient spontaneously opens eyes. Patient yawns spontaneously. No acute changes. Review of Systems - Review of Systems Systems not reviewed;Unavailable: Altered Mental Status Objective - Vital Signs/Intake and Output Vital Signs (last 24 hours): Vital Signs - 24 hr 09/27/15 09/27/15 09/28/15 13:46 21:44 05:58 Temperature 98.4 F 99.1 F 97.7 F Pulse Rate 89 83 79 Respiratory 16 18 14 Rate Blood Pressure 127/74 108/72 147/90 O2 Sat by Pulse 98 100 100 Oximetry 09/28/15 08:35 Temperature Pulse Rate Respiratory Rate Blood Pressure 135/83 O2 Sat by Pulse Oximetry Intake and Output (last 12 hours): Intake & Output 09/27/15 09/28/15 09/28/15 18:59 06:59 18:59 Intake Total 1300 1460 Output Total 900 750 Balance 400 710 Intake: Intake, IV Amount 300 600 Left Wrist 300 600 Tube Feeding 1000 560 Other 300 Output: Urine 900 750 Urethral (Yoo) 900 750 Other: # Bowel Movements 1 - Medications Medications: Current Medications Aspirin (Aspirin) 325 mg PO DAILY [facility] Last Admin: 09/28/15 09:07 Dose: 325 mg Clopidogrel Bisulfate (Plavix) 75 mg PO DAILY [facility] Last Admin: 09/28/15 09:07 Dose: 75 mg Dextrose/Sodium Chloride (Dextrose 5%/0.45% Ns 1000 Ml) 1,000 mls @ 50 mls/hr IV .Q20H [facility] Last Admin: 09/28/15 09:06 Dose: 50 mls/hr Lisinopril (Zestril) 5 mg PO DAILY [facility] Last Admin: 09/28/15 09:07 Dose: 5 mg Nystatin (Nystop Topical Powder) 1 applic TOP BID [facility] Last Admin: 09/28/15 09:09 Dose: 1 applic Petrolatum (Desitin Original) 0 gm TOP BID [facility] Last Admin: 09/28/15 09:09 Dose: 1 applic Phenytoin (Dilantin) 100 mg PEG TID [facility] Last Admin: 09/28/15 09:09 Dose: 100 mg Polyethylene Glycol (Miralax) 17 gm PEG BID [facility] Last Admin: 08/21/15 11:26 Dose: Not Given - Constitutional Appears: Chronically Ill - Head Exam Head Exam: NORMAL INSPECTION - Eye Exam Eye Exam: PERRL - ENT Exam ENT Exam: Mucous Membranes Moist - Respiratory Exam Respiratory Exam: Clear to PA & Lateral, NORMAL BREATHING PATTERN, UNREMARKABLE - Cardiovascular Exam Cardiovascular Exam: REGULAR RHYTHM, +S1, +S2 - GI/Abdominal Exam GI & Abdominal Exam: Normal Bowel Sounds. absent: Distended, Firm - Extremities Exam Extremities exam: absent: pedal edema Additional comments: b/l hand edema - Neurological Exam Neurological exam: Alert, Oriented x3 - Psychiatric Exam Psychiatric exam: Normal Affect, Normal Mood - Skin Skin Exam: Dry, Normal Color Assessment/Plan (1) Anoxic encephalopathy Current Visit: Yes Status: Acute Comment: 09/28: breathing on vent 09/27: mechanical ventilation 09/26: mechanical ventilation, breathing at 14 bpm 09/25: On mechanical ventilation 09/24: Breathing on vent. No acute resp distress. 09/23: Breathing on vent. no respiratory distress. NAD. 09/22: breathing on vent. Heel support boots on for foot drop prevention. no respiratory distress. 09/21: continue on vent. Heel support boots on for foot drop prevention. 09/15: Pt awake, on vent, no change in mental status 09/14: patient on SIMV. No acute distress. 09/11: [id number]-wg-[id number] dependent 09/10: Pt. [id number]-kw-prmz dependent. No change in mental status. 09/09: Patient awake. No acute changes. PEG feeds 10pm-8am. 09/08: Patient asleep and not responsive to verbal stimuli. NAD. Will continue to monitor. 09/07: Patient asleep, unable to arouse. No acute changes in condition. 09/06: Pt is awake, but only responsive to painful stimuli. Will continue to monitor 09/05: status unchanged, monitor 09/04: cont to monitor, pt unresponsive to verbal commands 09/03: No interval change, cont to monitor 09/02: Continue to monitor. 09/01: Continue to monitor, unchanged status. 08/31: status unchanged, will continue to monitor 08/30: awake and alert, eyes open, 08/29:Pt is more alert, able to open eyes; however, can not respond to verbal commands. will continue to monitor 08/28: Pt more alert today, continues to be unresponsive to verbal stimuli 08/27 No interval change in pt's condition, will continue to monitor 08/26 Patient's status remains the same 08/25 No improvement or change in mental status. Pt not responsive to verbal commands 08/24 Pt not responsive to verbal stimuli, only painful, unable to follow commands, pt continues to have swelling, minimal improvement, will continue to monitor, continue with dietary recommendations 08/22 Spontaneous movement, eyes open. given one dose of Lasix for increased swelling in upper extremities. GT bolus adjusted to dietary recommendations. 08/21 Spontaneous movement, opened eyes during examination. Per wound care nurse , Sabrina, pt is having skin breakdown due to excessive diarrhea. Recommended nystatin powder and sensicare cream to be applied on affected area. Pt's laxatives were removed. Gastric tube feeding will be made into 4 boluses, at 8am , 12pm, 4pm, 8 pm, per dietary recommendations. C diff cultures ordered. (2) Transaminitis Current Visit: Yes Status: Acute Comment: F/U thursday labs this week F/u CMP on Mondays and labs 09/27: AST 87, ALT 227, ALP 117, tbili 0.4 Dilantin level 10.4 started D5-1/2NS @ 50cc/hr 09/24: AST 140, ALT 209, alk phos 100. Increasing LFTs. 09/20: AST 49 , ALT 83 and Alk phos 97. Stable. 09/18: AST 42 , ALT 95 and Alk phos 117. Stable. 09/17: AST 50, [id number] and Alk phos 112. Stable. 09/14: AST 51, ALT 107 and AlK phos 118. Stable. 09/12: AST 49, ALT 99 and AlK phos 115. Improved. Recheck Q4days. Hep panel negative Continue to monitor LFTs (3) Respiratory failure Current Visit: Yes Status: Acute Comment: Patient is vent dependent. Dr. Salgado (pulm) on case-help appreciated Continue patient on trach SIMV. Patient is vent dependent. Unable to wean at this time. Monitor (4) CAD (coronary artery disease) Current Visit: Yes Status: Acute Comment: Continue Lisinopril 5mg PO daily Continue ASA 325mg PO daily Continue Plavix 75mg PO daily (5) STEMI (ST elevation myocardial infarction) Current Visit: Yes Status: Acute Comment: cardiac stents on 06/13/15. Continue Lisinopril 5mg PO daily Continue Plavix 75mg PO daily Continue ASA 325mg PO daily (6) Seizures Current Visit: Yes Status: Acute Comment: 09/28: continue current management 09/27: no seizure activity observed 09/26: continue current management 09/25: No seizure activity observed dilantin level 10.4 09/24: No seizure activity observed. 09/23: No seizure activity reported or noted 09/22: Continue current management 09/21: No seizure activity observed. Continue to monitor. 09/09:Continue current management. 09/01: dilantin level 5.7, continue current management. 08/30--> repeat Dilantin level in am, cont meds, SZ precaution Continue dilantin 100mg via PEG TID Continue to monitor for seizure activity (7) Prophylactic measure Current Visit: Yes Status: Acute Comment: Plavix 75 mg PO daily [facility] <Rashel Rodrigues - Last Filed: 09/28/15 16:53> Objective - Vital Signs/Intake and Output Vital Signs (last 24 hours): Vital Signs - 24 hr 09/27/15 09/28/15 09/28/15 21:44 05:58 08:35 Temperature 99.1 F 97.7 F Pulse Rate 83 79 Respiratory 18 14 Rate Blood Pressure 108/72 147/90 135/83 O2 Sat by Pulse 100 100 Oximetry 09/28/15 13:48 Temperature 98.5 F Pulse Rate 89 Respiratory 23 Rate Blood Pressure 126/81 O2 Sat by Pulse 100 Oximetry Intake and Output (last 12 hours): Intake & Output 09/27/15 09/28/15 09/28/15 18:59 06:59 18:59 Intake Total 1300 1460 Output Total 900 750 Balance 400 710 Intake: Intake, IV Amount 300 600 Left Wrist 300 600 Tube Feeding 1000 560 Other 300 Output: Urine 900 750 Urethral (Yoo) 900 750 Other: # Bowel Movements 1 - Medications Medications: Current Medications Aspirin (Aspirin) 325 mg PO DAILY [facility] Last Admin: 09/28/15 09:07 Dose: 325 mg Clopidogrel Bisulfate (Plavix) 75 mg PO DAILY [facility] Last Admin: 09/28/15 09:07 Dose: 75 mg Dextrose/Sodium Chloride (Dextrose 5%/0.45% Ns 1000 Ml) 1,000 mls @ 50 mls/hr IV .Q20H [facility] Last Admin: 09/28/15 09:06 Dose: 50 mls/hr Lisinopril (Zestril) 5 mg PO DAILY [facility] Last Admin: 09/28/15 09:07 Dose: 5 mg Nystatin (Nystop Topical Powder) 1 applic TOP BID [facility] Last Admin: 09/28/15 09:09 Dose: 1 applic Petrolatum (Desitin Original) 0 gm TOP BID [facility] Last Admin: 09/28/15 09:09 Dose: 1 applic Phenytoin (Dilantin) 100 mg PEG TID [facility] Last Admin: 09/28/15 13:26 Dose: 100 mg Polyethylene Glycol (Miralax) 17 gm PEG BID [facility] Last Admin: 08/21/15 11:26 Dose: Not Given Assessment/Plan (1) Anoxic encephalopathy Current Visit: Yes Status: Acute Comment: 09/28: breathing on vent 09/27: mechanical ventilation 09/26: mechanical ventilation, breathing at 14 bpm 09/25: On mechanical ventilation 09/24: Breathing on vent. No acute resp distress. 09/23: Breathing on vent. no respiratory distress. NAD. 09/22: breathing on vent. Heel support boots on for foot drop prevention. no respiratory distress. 09/21: continue on vent. Heel support boots on for foot drop prevention. 09/15: Pt awake, on vent, no change in mental status 09/14: patient on SIMV. No acute distress. 09/11: [id number]-bq-fipq dependent 09/10: Pt. xxrdr-zq-pamn dependent. No change in mental status. 09/09: Patient awake. No acute changes. PEG feeds 10pm-8am. 09/08: Patient asleep and not responsive to verbal stimuli. NAD. Will continue to monitor. 09/07: Patient asleep, unable to arouse. No acute changes in condition. 09/06: Pt is awake, but only responsive to painful stimuli. Will continue to monitor 09/05: status unchanged, monitor 09/04: cont to monitor, pt unresponsive to verbal commands 09/03: No interval change, cont to monitor 09/02: Continue to monitor. 09/01: Continue to monitor, unchanged status. 08/31: status unchanged, will continue to monitor 08/30: awake and alert, eyes open, 08/29:Pt is more alert, able to open eyes; however, can not respond to verbal commands. will continue to monitor 08/28: Pt more alert today, continues to be unresponsive to verbal stimuli 08/27 No interval change in pt's condition, will continue to monitor 08/26 Patient's status remains the same 08/25 No improvement or change in mental status. Pt not responsive to verbal commands 08/24 Pt not responsive to verbal stimuli, only painful, unable to follow commands, pt continues to have swelling, minimal improvement, will continue to monitor, continue with dietary recommendations 08/22 Spontaneous movement, eyes open. given one dose of Lasix for increased swelling in upper extremities. GT bolus adjusted to dietary recommendations. 08/21 Spontaneous movement, opened eyes during examination. Per wound care nurse Sabrina, pt is having skin breakdown due to excessive diarrhea. Recommended nystatin powder and sensicare cream to be applied on affected area. Pt's laxatives were removed. Gastric tube feeding will be made into 4 boluses, at 8am , 12pm, 4pm, 8 pm, per dietary recommendations. C diff cultures ordered. (2) STEMI (ST elevation myocardial infarction) Current Visit: Yes Status: Acute Comment: cardiac stents on 06/13/15. Continue Lisinopril 5mg PO daily Continue Plavix 75mg PO daily Continue ASA 325mg PO daily (3) Respiratory failure Current Visit: Yes Status: Acute Comment: Patient is vent dependent. Dr. Salgado (pul) on case-help appreciated Continue patient on trach SIMV. Patient is vent dependent. Unable to wean at this time. Monitor (4) Seizures Current Visit: Yes Status: Acute Comment: 09/28: continue current management 09/27: no seizure activity observed 09/26: continue current management 09/25: No seizure activity observed dilantin level 10.4 09/24: No seizure activity observed. 09/23: No seizure activity reported or noted 09/22: Continue current management 09/21: No seizure activity observed. Continue to monitor. 09/09:Continue current management. 09/01: dilantin level 5.7, continue current management. 08/30--> repeat Dilantin level in am, cont meds, SZ precaution Continue dilantin 100mg via PEG TID Continue to monitor for seizure activity (5) Prophylactic measure Current Visit: Yes Status: Acute Comment: Plavix 75 mg PO daily [facility] Attending/Attestation - Attestation I have personally seen and examined this patient.: Yes I have fully participated in the care of the patient.: Yes I have reviewed all pertinent clinical information: Yes Notes (Text): 09/28/15 16:52 Patient was seen and examined during round with resident. no new events, Cont Vent support Unable to wean as per Pulm.
--- NOTE | 2015-09-29 00:54 | CP.PCM.PN ---
<Yesenia Mayer - Last Filed: 09/29/15 00:47> Subjective - Subjective Subjective: Patient seen and examined at bedside. Continues to be unresponsive to verbal and painful stimuli. Patient spontaneously opens eyes and yawns. No acute changes. Review of Systems - Review of Systems Systems not reviewed;Unavailable: Altered Mental Status Review of Systems: unable to obtain ros Objective - Vital Signs/Intake and Output Vital Signs (last 24 hours): Vital Signs - 24 hr 09/28/15 09/28/15 09/28/15 05:58 08:35 13:48 Temperature 97.7 F 98.5 F Pulse Rate 79 89 Respiratory 14 23 Rate Blood Pressure 147/90 135/83 126/81 O2 Sat by Pulse 100 100 Oximetry 09/28/15 21:38 Temperature 98.7 F Pulse Rate 76 Respiratory 16 Rate Blood Pressure 112/72 O2 Sat by Pulse 76 L Oximetry Intake and Output (last 12 hours): Intake & Output 09/28/15 09/28/15 09/29/15 06:59 18:59 06:59 Intake Total 1460 1600 Output Total 750 1600 400 Balance 710 0 -400 Intake: Intake, IV Amount 600 600 Left Wrist 600 600 Tube Feeding 560 1000 Other 300 Output: Urine 750 1600 400 Urethral (Yoo) 750 1600 400 Other: # Bowel Movements 2 1 - Medications Medications: Current Medications Aspirin (Aspirin) 325 mg PO DAILY [facility] Last Admin: 09/28/15 09:07 Dose: 325 mg Clopidogrel Bisulfate (Plavix) 75 mg PO DAILY [facility] Last Admin: 09/28/15 09:07 Dose: 75 mg Dextrose/Sodium Chloride (Dextrose 5%/0.45% Ns 1000 Ml) 1,000 mls @ 50 mls/hr IV .Q20H [facility] Last Admin: 09/28/15 09:06 Dose: 50 mls/hr Lisinopril (Zestril) 5 mg PO DAILY [facility] Last Admin: 09/28/15 09:07 Dose: 5 mg Nystatin (Nystop Topical Powder) 1 applic TOP BID [facility] Last Admin: 09/28/15 17:25 Dose: 1 applic Petrolatum (Desitin Original) 0 gm TOP BID [facility] Last Admin: 09/28/15 17:25 Dose: 1 applic Phenytoin (Dilantin) 100 mg PEG TID [facility] Last Admin: 09/28/15 17:26 Dose: 100 mg Polyethylene Glycol (Miralax) 17 gm PEG BID [facility] Last Admin: 08/21/15 11:26 Dose: Not Given - Constitutional Appears: No Acute Distress - Head Exam Head Exam: NORMAL INSPECTION - ENT Exam ENT Exam: Mucous Membranes Dry - Respiratory Exam Respiratory Exam: Clear to PA & Lateral. absent: Rales, Rhonchi, Wheezes - Cardiovascular Exam Cardiovascular Exam: REGULAR RHYTHM, +S1, +S2 - GI/Abdominal Exam GI & Abdominal Exam: Normal Bowel Sounds, Soft. absent: Organomegaly - Extremities Exam Extremities exam: pedal pulses present. absent: pedal edema - Neurological Exam Neurological exam: absent: Alert, Oriented x3 - Psychiatric Exam Psychiatric exam: absent: Normal Affect, Normal Mood - Skin Skin Exam: Normal Color, Warm Assessment/Plan (1) Chest congestion Current Visit: Yes Status: Acute Comment: 09/29: lungs clear 09/25: Lungs clear 09/24: Lungs clear to auscultation 09/23: Lungs CTA 09/22: lungs CTA bilaterally 09/21: Lungs clear bilaterally. 09/15: No change 09/14: Clear to auscultation. No acute distress. 09/12: CXR on 09/12 shows no changes. 09/09: No acute distress. Afebrile. 09/08: Not using accesory muscles. Afebrile. Sputum culture (07/28/15) with Pseudomonas aeruginosa s/p treatment Dr. Armstrong on case-following. (2) Thrombophlebitis of superficial veins of upper extremities Current Visit: Yes Status: Acute Comment: Venous doppler (07/19) prelim report - thrombosis of right cephalic vein (superficial) Shows Abnormality Lovenox 40mg SC daily Warm compresses to area 15 minutes, 3x a day f/u final venous doppler report (3) Edema of upper extremity Current Visit: Yes Status: Acute Comment: Continue warm compresses Venous doppler (07/19) showed superficial thrombosis of right cephalic vein. ( see official report). Monitor (4) Anoxic encephalopathy Current Visit: Yes Status: Acute Comment: 09/29: mechanical ventilation 6: breathing on vent 09/27: mechanical ventilation 09/26: mechanical ventilation, breathing at 14 bpm 09/25: On mechanical ventilation 09/24: Breathing on vent. No acute resp distress. 09/23: Breathing on vent. no respiratory distress. NAD. 09/22: breathing on vent. Heel support boots on for foot drop prevention. no respiratory distress. 09/21: continue on vent. Heel support boots on for foot drop prevention. 09/15: Pt awake, on vent, no change in mental status 09/14: patient on SIMV. No acute distress. 09/11: holce-vu-zflh dependent 09/10: Pt. fviqs-mc-rcdw dependent. No change in mental status. 09/09: Patient awake. No acute changes. PEG feeds 10pm-8am. 09/08: Patient asleep and not responsive to verbal stimuli. NAD. Will continue to monitor. 09/07: Patient asleep, unable to arouse. No acute changes in condition. 09/06: Pt is awake, but only responsive to painful stimuli. Will continue to monitor 09/05: status unchanged, monitor 09/04: cont to monitor, pt unresponsive to verbal commands 09/03: No interval change, cont to monitor 09/02: Continue to monitor. 09/01: Continue to monitor, unchanged status. 08/31: status unchanged, will continue to monitor 08/30: awake and alert, eyes open, 08/29:Pt is more alert, able to open eyes; however, can not respond to verbal commands. will continue to monitor 08/28: Pt more alert today, continues to be unresponsive to verbal stimuli 08/27 No interval change in pt's condition, will continue to monitor 08/26 Patient's status remains the same 08/25 No improvement or change in mental status. Pt not responsive to verbal commands 08/24 Pt not responsive to verbal stimuli, only painful, unable to follow commands, pt continues to have swelling, minimal improvement, will continue to monitor, continue with dietary recommendations 08/22 Spontaneous movement, eyes open. given one dose of Lasix for increased swelling in upper extremities. GT bolus adjusted to dietary recommendations. 08/21 Spontaneous movement, opened eyes during examination. Per wound care nurse , Sabrina, pt is having skin breakdown due to excessive diarrhea. Recommended nystatin powder and sensicare cream to be applied on affected area. Pt's laxatives were removed. Gastric tube feeding will be made into 4 boluses, at 8am , 12pm, 4pm, 8 pm, per dietary recommendations. C diff cultures ordered. (5) Respiratory failure Current Visit: Yes Status: Acute Comment: Patient is vent dependent. Dr. Salgado (pul) on case-help appreciated Continue patient on trach SIMV. Patient is vent dependent. Unable to wean at this time. Monitor (6) Transaminitis Current Visit: Yes Status: Acute Comment: F/U thursday labs this week F/u CMP on Mondays and labs 09/27: AST 87, ALT 227, ALP 117, tbili 0.4 Dilantin level 10.4 started D5-1/2NS @ 50cc/hr 09/24: AST 140, ALT 209, alk phos 100. Increasing LFTs. 09/20: AST 49 , ALT 83 and Alk phos 97. Stable. 09/18: AST 42 , ALT 95 and Alk phos 117. Stable. 09/17: AST 50, [id number] and Alk phos 112. Stable. 09/14: AST 51, ALT 107 and AlK phos 118. Stable. 09/12: AST 49, ALT 99 and AlK phos 115. Improved. Recheck Q4days. Hep panel negative Continue to monitor LFTs (7) Cardiac arrest Current Visit: Yes Status: Acute Comment: s/p V-Tach arrest Continue Plavix 75mg PO daily Continue ASA 325mg PO daily Continue Lisinopril 5mg PO daily (8) STEMI (ST elevation myocardial infarction) Current Visit: Yes Status: Acute Comment: cardiac stents on 06/13/15. Continue Lisinopril 5mg PO daily Continue Plavix 75mg PO daily Continue ASA 325mg PO daily (9) Seizures Current Visit: Yes Status: Acute Comment: 09/29: continue current management 09/27: no seizure activity observed 09/26: continue current management 09/25: No seizure activity observed dilantin level 10.4 09/24: No seizure activity observed. 09/23: No seizure activity reported or noted 09/22: Continue current management 09/21: No seizure activity observed. Continue to monitor. 09/09:Continue current management. 09/01: dilantin level 5.7, continue current management. 08/30--> repeat Dilantin level in am, cont meds, SZ precaution Continue dilantin 100mg via PEG TID Continue to monitor for seizure activity (10) Prophylactic measure Current Visit: Yes Status: Acute Comment: Plavix 75 mg PO daily [facility] <Nyunt,Rashel - Last Filed: 09/29/15 14:59> Objective - Vital Signs/Intake and Output Vital Signs (last 24 hours): Vital Signs - 24 hr 09/28/15 09/29/15 09/29/15 21:38 06:03 08:00 Temperature 98.7 F 98.0 F Pulse Rate 76 80 80 Respiratory 16 16 Rate Blood Pressure 112/72 160/86 H O2 Sat by Pulse 76 L 100 Oximetry Intake and Output (last 12 hours): Intake & Output 09/28/15 09/29/15 09/29/15 18:59 06:59 18:59 Intake Total 1600 1550 Output Total 1600 860 Balance 0 690 Intake: Intake, IV Amount 600 600 Left Wrist 600 600 Tube Feeding 1000 950 Output: Gastric Amount 10 Stomach 10 Urine 1600 850 Urethral (Yoo) 1600 850 Other: # Bowel Movements 2 1 - Medications Medications: Current Medications Aspirin (Aspirin) 325 mg PO DAILY [facility] Last Admin: 09/29/15 10:57 Dose: 325 mg Clopidogrel Bisulfate (Plavix) 75 mg PO DAILY [facility] Last Admin: 09/29/15 10:56 Dose: 75 mg Dextrose/Sodium Chloride (Dextrose 5%/0.45% Ns 1000 Ml) 1,000 mls @ 50 mls/hr IV .Q20H [facility] Last Admin: 09/29/15 02:59 Dose: 50 mls/hr Lisinopril (Zestril) 5 mg PO DAILY [facility] Last Admin: 09/29/15 10:57 Dose: 5 mg Nystatin (Nystop Topical Powder) 1 applic TOP BID [facility] Last Admin: 09/29/15 10:58 Dose: 1 applic Petrolatum (Desitin Original) 0 gm TOP BID [facility] Last Admin: 09/29/15 10:57 Dose: 1 applic Phenytoin (Dilantin) 100 mg PEG TID [facility] Last Admin: 09/29/15 14:04 Dose: 100 mg Polyethylene Glycol (Miralax) 17 gm PEG BID [facility] Last Admin: 08/21/15 11:26 Dose: Not Given - Labs Labs (last 24 hours): Laboratory Results - last 24 hr 09/29/15 08:55 WBC 11.7 H RBC 3.75 L Hgb 11.7 L Hct 35.4 MCV 94.5 H MCH 31.1 H MCHC 33.0 RDW 14.5 Plt Count 320 MPV 8.5 Neut % (Auto) 64.7 Lymph % (Auto) 13.0 L Henderson % (Auto) 7.7 Eos % (Auto) 13.9 H Baso % (Auto) 0.7 Neut # 7.5 H Lymph # 1.5 Henderson # 0.9 H Eos # 1.6 H Baso # 0.1 Sodium 140 Potassium 3.9 Chloride 103 Carbon Dioxide 29 Anion Gap 12 BUN 13 Creatinine 0.5 L Est GFR ( Amer) > 60 Est GFR (Non-Af Amer) > 60 Random Glucose 120 H Calcium 8.9 Phosphorus 3.8 Magnesium 2.0 Total Bilirubin 0.3 AST 48 ALT 144 H D Alkaline Phosphatase 115 Total Protein 6.8 Albumin 3.2 L Globulin 3.7 Albumin/Globulin Ratio 0.9 L Assessment/Plan (1) Anoxic encephalopathy Current Visit: Yes Status: Acute Comment: 09/29: mechanical ventilation 09/28: breathing on vent 09/27: mechanical ventilation 09/26: mechanical ventilation, breathing at 14 bpm 09/25: On mechanical ventilation 09/24: Breathing on vent. No acute resp distress. 09/23: Breathing on vent. no respiratory distress. NAD. 09/22: breathing on vent. Heel support boots on for foot drop prevention. no respiratory distress. 09/21: continue on vent. Heel support boots on for foot drop prevention. 09/15: Pt awake, on vent, no change in mental status 09/14: patient on SIMV. No acute distress. 09/11: qzrxn-hy-peme dependent 09/10: Pt. gcibp-iu-obgs dependent. No change in mental status. 09/09: Patient awake. No acute changes. PEG feeds 10pm-8am. 09/08: Patient asleep and not responsive to verbal stimuli. NAD. Will continue to monitor. 09/07: Patient asleep, unable to arouse. No acute changes in condition. 09/06: Pt is awake, but only responsive to painful stimuli. Will continue to monitor 09/05: status unchanged, monitor 09/04: cont to monitor, pt unresponsive to verbal commands 09/03: No interval change, cont to monitor 09/02: Continue to monitor. 09/01: Continue to monitor, unchanged status. 08/31: status unchanged, will continue to monitor 08/30: awake and alert, eyes open, 08/29:Pt is more alert, able to open eyes; however, can not respond to verbal commands. will continue to monitor 08/28: Pt more alert today, continues to be unresponsive to verbal stimuli 08/27 No interval change in pt's condition, will continue to monitor 08/26 Patient's status remains the same 08/25 No improvement or change in mental status. Pt not responsive to verbal commands 08/24 Pt not responsive to verbal stimuli, only painful, unable to follow commands, pt continues to have swelling, minimal improvement, will continue to monitor, continue with dietary recommendations 08/22 Spontaneous movement, eyes open. given one dose of Lasix for increased swelling in upper extremities. GT bolus adjusted to dietary recommendations. 08/21 Spontaneous movement, opened eyes during examination. Per wound care nurse , Sabrina, pt is having skin breakdown due to excessive diarrhea. Recommended nystatin powder and sensicare cream to be applied on affected area. Pt's laxatives were removed. Gastric tube feeding will be made into 4 boluses, at 8am , 12pm, 4pm, 8 pm, per dietary recommendations. C diff cultures ordered. (2) STEMI (ST elevation myocardial infarction) Current Visit: Yes Status: Acute Comment: cardiac stents on 06/13/15. Continue Lisinopril 5mg PO daily Continue Plavix 75mg PO daily Continue ASA 325mg PO daily (3) Respiratory failure Current Visit: Yes Status: Acute Comment: Patient is vent dependent. Dr. Salgado (pul) on case-help appreciated Continue patient on trach SIMV. Patient is vent dependent. Unable to wean at this time. Monitor (4) Seizures Current Visit: Yes Status: Acute Comment: 09/29: continue current management 09/27: no seizure activity observed 09/26: continue current management 09/25: No seizure activity observed dilantin level 10.4 09/24: No seizure activity observed. 09/23: No seizure activity reported or noted 09/22: Continue current management 09/21: No seizure activity observed. Continue to monitor. 09/09:Continue current management. 09/01: dilantin level 5.7, continue current management. 08/30--> repeat Dilantin level in am, cont meds, SZ precaution Continue dilantin 100mg via PEG TID Continue to monitor for seizure activity (5) Prophylactic measure Current Visit: Yes Status: Acute Comment: Plavix 75 mg PO daily [facility] Attending/Attestation - Attestation I have personally seen and examined this patient.: Yes I have fully participated in the care of the patient.: Yes I have reviewed all pertinent clinical information: Yes Notes (Text): 09/29/15 14:57 Patient was seen and examined during round with resident. no new events, cont vent support as per Pulm
[2015-09-29] MEDS: Dextrose 5%/0.45% NS 1,000 ML IV SCH (02:59)
[2015-09-29 09:15] LABS: BASO # 0.1 K/uL (0.0-0.2); BASO % 0.7 % (0.0-2.0); EOS # 1.6 K/uL (0.0-0.7); EOS % 13.9 % (0.0-4.0); HEMOGLOBIN 11.7 g/dL (12.0-18.0); LYMPH # 1.5 K/uL (1.0-4.3); MEAN CELL VOLUME 94.5 fL (80.0-94.0); MEAN CORPUSCULAR HEMOGLOBIN 31.1 pg (27.0-31.0); MEAN PLATELET VOLUME 8.5 fL (7.2-11.7); MONO # 0.9 K/uL (0.0-0.8); MONO % 7.7 % (0.0-10.0); NEUT # 7.5 K/uL (1.8-7.0); NEUT % 64.7 % (50.0-75.0); RBC 3.75 Mil/uL (4.40-5.90); RED CELL DISTRIBUTION WIDTH 14.5 % (11.5-14.5); WHITE BLOOD COUNT 11.7 K/uL (4.8-10.8)
[2015-09-29 09:37] LABS: ALBUMIN 3.2 g/dL (3.5-5.0)
[2015-09-29 09:40] LABS: AST/SGOT 48 U/L (17-59); GFR NON-AFRICAN AMERICAN > 60
[2015-09-29 09:41] LABS: ALB/GLOB RATIO 0.9 (1.0-2.1); ALT/SGPT 144 U/L (21-72); BLOOD UREA NITROGEN 13 mg/dL (9-20); CALCIUM 8.9 mg/dL (8.4-10.2)
[2015-09-29] MEDS: Phenytoin 100 mg/4 ml Oral Susp UD PEG SCH ×3 (10:56→18:05)
[2015-09-29] MEDS: Zinc Oxide Topical 30 gm Tube TOP SCH ×2 (10:57→18:05)
[2015-09-30] MEDS: Dextrose 5%/0.45% NS 1,000 ML IV SCH ×2 (00:01→18:49)
--- NOTE | 2015-09-30 05:55 | CP.PCM.PN ---
<LilliamYesenia altamirano - Last Filed: 09/30/15 05:53> Subjective - Subjective Subjective: Patient seen and examined at bedside. Continues to be unresponsive to verbal and painful stimuli. No acute changes since last exam. Review of Systems - Review of Systems Systems not reviewed;Unavailable: Altered Mental Status Review of Systems: unable to obtain ROS Objective - Vital Signs/Intake and Output Vital Signs (last 24 hours): Vital Signs - 24 hr 09/29/15 09/29/15 09/29/15 06:03 08:00 15:02 Temperature 98.0 F 97.0 F L Pulse Rate 80 80 86 Respiratory 16 16 Rate Blood Pressure 160/86 H 124/79 O2 Sat by Pulse 100 100 Oximetry 09/29/15 21:59 Temperature 98.9 F Pulse Rate 93 H Respiratory 16 Rate Blood Pressure 155/92 H O2 Sat by Pulse 100 Oximetry Intake and Output (last 12 hours): Intake & Output 09/29/15 09/29/15 09/30/15 06:59 18:59 06:59 Intake Total 1550 Output Total 860 1100 1200 Balance 690 -1100 -1200 Intake: Intake, IV Amount 600 Left Wrist 600 Tube Feeding 950 Output: Gastric Amount 10 Stomach 10 Urine 850 1100 1200 Urethral (Yoo) 850 1100 1200 Other: # Bowel Movements 1 1 - Medications Medications: Current Medications Aspirin (Aspirin) 325 mg PO DAILY [facility] Last Admin: 09/29/15 10:57 Dose: 325 mg Clopidogrel Bisulfate (Plavix) 75 mg PO DAILY [facility] Last Admin: 09/29/15 10:56 Dose: 75 mg Dextrose/Sodium Chloride (Dextrose 5%/0.45% Ns 1000 Ml) 1,000 mls @ 50 mls/hr IV .Q20H [facility] Last Admin: 09/30/15 00:01 Dose: 50 mls/hr Lisinopril (Zestril) 5 mg PO DAILY [facility] Last Admin: 09/29/15 10:57 Dose: 5 mg Nystatin (Nystop Topical Powder) 1 applic TOP BID [facility] Last Admin: 09/29/15 18:05 Dose: 1 applic Petrolatum (Desitin Original) 0 gm TOP BID [facility] Last Admin: 09/29/15 18:05 Dose: 1 applic Phenytoin (Dilantin) 100 mg PEG TID [facility] Last Admin: 09/29/15 18:05 Dose: 100 mg Polyethylene Glycol (Miralax) 17 gm PEG BID [facility] Last Admin: 08/21/15 11:26 Dose: Not Given - Labs Labs (last 24 hours): Laboratory Results - last 24 hr 09/29/15 08:55 WBC 11.7 H RBC 3.75 L Hgb 11.7 L Hct 35.4 MCV 94.5 H MCH 31.1 H MCHC 33.0 RDW 14.5 Plt Count 320 MPV 8.5 Neut % (Auto) 64.7 Lymph % (Auto) 13.0 L [place] % (Auto) 7.7 Eos % (Auto) 13.9 H Baso % (Auto) 0.7 Neut # 7.5 H Lymph # 1.5 [place] # 0.9 H Eos # 1.6 H Baso # 0.1 Sodium 140 Potassium 3.9 Chloride 103 Carbon Dioxide 29 Anion Gap 12 BUN 13 Creatinine 0.5 L Est GFR ( Amer) > 60 Est GFR (Non-Af Amer) > 60 Random Glucose 120 H Calcium 8.9 Phosphorus 3.8 Magnesium 2.0 Total Bilirubin 0.3 AST 48 ALT 144 H D Alkaline Phosphatase 115 Total Protein 6.8 Albumin 3.2 L Globulin 3.7 Albumin/Globulin Ratio 0.9 L - Constitutional Appears: No Acute Distress - Head Exam Head Exam: NORMAL INSPECTION - Neck Exam Neck exam: absent: Lymphadenopathy - Respiratory Exam Respiratory Exam: Clear to PA & Lateral. absent: Rales, Rhonchi, Wheezes - Cardiovascular Exam Cardiovascular Exam: REGULAR RHYTHM, +S1, +S2 - GI/Abdominal Exam GI & Abdominal Exam: Normal Bowel Sounds, Soft. absent: Organomegaly, Tenderness - Extremities Exam Extremities exam: tenderness, pedal pulses present. absent: pedal edema - Neurological Exam Neurological exam: absent: Alert, Oriented x3 - Psychiatric Exam Psychiatric exam: absent: Normal Affect, Normal Mood - Skin Skin Exam: Normal Color, Warm Assessment/Plan (1) Chest congestion Current Visit: Yes Status: Acute Comment: 09/29: lungs clear 09/25: Lungs clear 09/24: Lungs clear to auscultation 09/23: Lungs CTA 09/22: lungs CTA bilaterally 09/21: Lungs clear bilaterally. 09/15: No change 09/14: Clear to auscultation. No acute distress. 09/12: CXR on 09/12 shows no changes. 09/09: No acute distress. Afebrile. 09/08: Not using accesory muscles. Afebrile. Sputum culture (07/28/15) with Pseudomonas aeruginosa s/p treatment Dr. Armstrong on case-following. (2) Thrombophlebitis of superficial veins of upper extremities Current Visit: Yes Status: Acute Comment: Venous doppler (07/19) prelim report - thrombosis of right cephalic vein (superficial) Shows Abnormality Lovenox 40mg SC daily Warm compresses to area 15 minutes, 3x a day f/u final venous doppler report (3) Edema of upper extremity Current Visit: Yes Status: Acute Comment: Continue warm compresses Venous doppler (07/19) showed superficial thrombosis of right cephalic vein. ( see official report). Monitor (4) Anoxic encephalopathy Current Visit: Yes Status: Acute Comment: 09/29: mechanical ventilation 09/28: breathing on vent 09/27: mechanical ventilation 09/26: mechanical ventilation, breathing at 14 bpm 09/25: On mechanical ventilation 09/24: Breathing on vent. No acute resp distress. 09/23: Breathing on vent. no respiratory distress. NAD. 09/22: breathing on vent. Heel support boots on for foot drop prevention. no respiratory distress. 09/21: continue on vent. Heel support boots on for foot drop prevention. 09/15: Pt awake, on vent, no change in mental status 09/14: patient on SIMV. No acute distress. 09/11: [id number] dependent 09/10: Pt. [id number] dependent. No change in mental status. 09/09: Patient awake. No acute changes. PEG feeds 10pm-8am. 09/08: Patient asleep and not responsive to verbal stimuli. NAD. Will continue to monitor. 09/07: Patient asleep, unable to arouse. No acute changes in condition. 09/06: Pt is awake, but only responsive to painful stimuli. Will continue to monitor 09/05: status unchanged, monitor 09/04: cont to monitor, pt unresponsive to verbal commands 09/03: No interval change, cont to monitor 09/02: Continue to monitor. 09/01: Continue to monitor, unchanged status. 08/31: status unchanged, will continue to monitor 08/30: awake and alert, eyes open, 08/29:Pt is more alert, able to open eyes; however, can not respond to verbal commands. will continue to monitor 08/28: Pt more alert today, continues to be unresponsive to verbal stimuli 08/27 No interval change in pt's condition, will continue to monitor 08/26 Patient's status remains the same 08/25 No improvement or change in mental status. Pt not responsive to verbal commands 08/24 Pt not responsive to verbal stimuli, only painful, unable to follow commands, pt continues to have swelling, minimal improvement, will continue to monitor, continue with dietary recommendations 08/22 Spontaneous movement, eyes open. given one dose of Lasix for increased swelling in upper extremities. GT bolus adjusted to dietary recommendations. 08/21 Spontaneous movement, opened eyes during examination. Per wound care nurse , Sabrina, pt is having skin breakdown due to excessive diarrhea. Recommended nystatin powder and sensicare cream to be applied on affected area. Pt's laxatives were removed. Gastric tube feeding will be made into 4 boluses, at 8am , 12pm, 4pm, 8 pm, per dietary recommendations. C diff cultures ordered. (5) Respiratory failure Current Visit: Yes Status: Acute Comment: Patient is vent dependent. Dr. Salgado (pul) on case-help appreciated Continue patient on trach SIMV. Patient is vent dependent. Unable to wean at this time. Monitor (6) Transaminitis Current Visit: Yes Status: Acute Comment: F/U thursday labs this week F/u CMP on Mondays and labs 09/27: AST 87, ALT 227, ALP 117, tbili 0.4 Dilantin level 10.4 started D5-1/2NS @ 50cc/hr 09/24: AST 140, ALT 209, alk phos 100. Increasing LFTs. 09/20: AST 49 , ALT 83 and Alk phos 97. Stable. 09/18: AST 42 , ALT 95 and Alk phos 117. Stable. 09/17: AST 50, [id number] and Alk phos 112. Stable. 09/14: AST 51, ALT 107 and AlK phos 118. Stable. 09/12: AST 49, ALT 99 and AlK phos 115. Improved. Recheck Q4days. Hep panel negative Continue to monitor LFTs (7) Cardiac arrest Current Visit: Yes Status: Acute Comment: s/p V-Tach arrest Continue Plavix 75mg PO daily Continue ASA 325mg PO daily Continue Lisinopril 5mg PO daily (8) STEMI (ST elevation myocardial infarction) Current Visit: Yes Status: Acute Comment: cardiac stents on 06/13/15. Continue Lisinopril 5mg PO daily Continue Plavix 75mg PO daily Continue ASA 325mg PO daily (9) Seizures Current Visit: Yes Status: Acute Comment: 09/29: continue current management 09/27: no seizure activity observed 09/26: continue current management 09/25: No seizure activity observed dilantin level 10.4 09/24: No seizure activity observed. 09/23: No seizure activity reported or noted 09/22: Continue current management 09/21: No seizure activity observed. Continue to monitor. 09/09:Continue current management. 09/01: dilantin level 5.7, continue current management. 08/30--> repeat Dilantin level in am, cont meds, SZ precaution Continue dilantin 100mg via PEG TID Continue to monitor for seizure activity (10) Prophylactic measure Current Visit: Yes Status: Acute Comment: Plavix 75 mg PO daily [facility] <Rashel Rodrigues - Last Filed: 09/30/15 17:39> Objective - Vital Signs/Intake and Output Vital Signs (last 24 hours): Vital Signs - 24 hr 09/29/15 09/30/15 09/30/15 21:59 06:00 08:00 Temperature 98.9 F 98.0 F Pulse Rate 93 H 75 75 Respiratory 16 20 Rate Blood Pressure 155/92 H 160/90 H O2 Sat by Pulse 100 100 Oximetry 09/30/15 13:40 Temperature 98.0 F Pulse Rate 85 Respiratory 20 Rate Blood Pressure 98/67 L O2 Sat by Pulse 99 Oximetry Intake and Output (last 12 hours): Intake & Output 09/29/15 09/30/15 09/30/15 18:59 06:59 18:59 Output Total 1100 1900 800 Balance -1100 -1900 -800 Output: Urine 1100 1900 800 Urethral (Yoo) 1100 1900 800 Other: # Bowel Movements 1 - Medications Medications: Current Medications Aspirin (Aspirin) 325 mg PO DAILY [facility] Last Admin: 09/30/15 11:31 Dose: 325 mg Clopidogrel Bisulfate (Plavix) 75 mg PO DAILY [facility] Last Admin: 09/30/15 11:32 Dose: 75 mg Dextrose/Sodium Chloride (Dextrose 5%/0.45% Ns 1000 Ml) 1,000 mls @ 50 mls/hr IV .Q20H [facility] Last Admin: 09/30/15 00:01 Dose: 50 mls/hr Lisinopril (Zestril) 5 mg PO DAILY [facility] Last Admin: 09/30/15 11:32 Dose: 5 mg Nystatin (Nystop Topical Powder) 1 applic TOP BID [facility] Last Admin: 09/30/15 11:32 Dose: 1 applic Petrolatum (Desitin Original) 0 gm TOP BID [facility] Last Admin: 09/30/15 11:31 Dose: 1 applic Phenytoin (Dilantin) 100 mg PEG TID [facility] Last Admin: 09/30/15 14:24 Dose: 100 mg Polyethylene Glycol (Miralax) 17 gm PEG BID [facility] Last Admin: 08/21/15 11:26 Dose: Not Given Assessment/Plan (1) Anoxic encephalopathy Current Visit: Yes Status: Acute Comment: 09/29: mechanical ventilation 09/28: breathing on vent 09/27: mechanical ventilation 09/26: mechanical ventilation, breathing at 14 bpm 09/25: On mechanical ventilation 09/24: Breathing on vent. No acute resp distress. 09/23: Breathing on vent. no respiratory distress. NAD. 09/22: breathing on vent. Heel support boots on for foot drop prevention. no respiratory distress. 09/21: continue on vent. Heel support boots on for foot drop prevention. 09/15: Pt awake, on vent, no change in mental status 09/14: patient on SIMV. No acute distress. 09/11: [id number] dependent 09/10: Pt. azdmi-tc-[id number] dependent. No change in mental status. 09/09: Patient awake. No acute changes. PEG feeds 10pm-8am. 09/08: Patient asleep and not responsive to verbal stimuli. NAD. Will continue to monitor. 09/07: Patient asleep, unable to arouse. No acute changes in condition. 09/06: Pt is awake, but only responsive to painful stimuli. Will continue to monitor 09/05: status unchanged, monitor 09/04: cont to monitor, pt unresponsive to verbal commands 09/03: No interval change, cont to monitor 09/02: Continue to monitor. 09/01: Continue to monitor, unchanged status. 10/9: status unchanged, will continue to monitor 08/30: awake and alert, eyes open, 08/29:Pt is more alert, able to open eyes; however, can not respond to verbal commands. will continue to monitor 08/28: Pt more alert today, continues to be unresponsive to verbal stimuli 08/27 No interval change in pt's condition, will continue to monitor 08/26 Patient's status remains the same 08/25 No improvement or change in mental status. Pt not responsive to verbal commands 08/24 Pt not responsive to verbal stimuli, only painful, unable to follow commands, pt continues to have swelling, minimal improvement, will continue to monitor, continue with dietary recommendations 08/22 Spontaneous movement, eyes open. given one dose of Lasix for increased swelling in upper extremities. GT bolus adjusted to dietary recommendations. 08/21 Spontaneous movement, opened eyes during examination. Per wound care nurse Sabrina, pt is having skin breakdown due to excessive diarrhea. Recommended nystatin powder and sensicare cream to be applied on affected area. Pt's laxatives were removed. Gastric tube feeding will be made into 4 boluses, at 8am , 12pm, 4pm, 8 pm, per dietary recommendations. C diff cultures ordered. (2) STEMI (ST elevation myocardial infarction) Current Visit: Yes Status: Acute Comment: cardiac stents on 06/13/15. Continue Lisinopril 5mg PO daily Continue Plavix 75mg PO daily Continue ASA 325mg PO daily (3) Respiratory failure Current Visit: Yes Status: Acute Comment: Patient is vent dependent. Dr. Salgado (pul) on case-help appreciated Continue patient on trach SIMV. Patient is vent dependent. Unable to wean at this time. Monitor (4) Seizures Current Visit: Yes Status: Acute Comment: 09/29: continue current management 09/27: no seizure activity observed 09/26: continue current management 09/25: No seizure activity observed dilantin level 10.4 09/24: No seizure activity observed. 09/23: No seizure activity reported or noted 09/22: Continue current management 09/21: No seizure activity observed. Continue to monitor. 09/09:Continue current management. 09/01: dilantin level 5.7, continue current management. 08/30--> repeat Dilantin level in am, cont meds, SZ precaution Continue dilantin 100mg via PEG TID Continue to monitor for seizure activity (5) Prophylactic measure Current Visit: Yes Status: Acute Comment: Plavix 75 mg PO daily SCDs Attending/Attestation - Attestation I have personally seen and examined this patient.: Yes I have fully participated in the care of the patient.: Yes I have reviewed all pertinent clinical information: Yes Notes (Text): 09/30/15 17:38 Patient seen and examined during round with resident no new events, cont vent support
[2015-09-30] MEDS: Phenytoin 100 mg/4 ml Oral Susp UD PEG SCH ×3 (11:31→18:47)
[2015-09-30] MEDS: Zinc Oxide Topical 30 gm Tube TOP SCH ×2 (11:31→18:47)
[2015-10-01 07:15] LABS: GFR NON-AFRICAN AMERICAN > 60
[2015-10-01 07:16] LABS: ALB/GLOB RATIO 0.8 (1.0-2.1); ALT/SGPT 128 U/L (21-72); AST/SGOT 48 U/L (17-59); BLOOD UREA NITROGEN 16 mg/dL (9-20)
[2015-10-01 07:17] LABS: CALCIUM 8.2 mg/dL (8.4-10.2)
[2015-10-01] MEDS: Phenytoin 100 mg/4 ml Oral Susp UD PEG SCH ×3 (11:02→17:56)
[2015-10-01] MEDS: Zinc Oxide Topical 30 gm Tube TOP SCH ×2 (11:03→17:56)
--- NOTE | 2015-10-01 11:16 | CP.PCM.PN ---
<Judith Baires H - Last Filed: 10/01/15 11:17> Subjective - Subjective Subjective: PGY1/Dr. Demetrice Ying Medicine Note: Patient seen and examined at bedside. No mental status change. Patient nonresponsive to verbal and painful stimuli. Patient opens eyes spontaneously. Review of Systems - Review of Systems Systems not reviewed;Unavailable: Altered Mental Status Objective - Vital Signs/Intake and Output Vital Signs (last 24 hours): Vital Signs - 24 hr 09/30/15 09/30/15 10/01/15 13:40 22:06 05:00 Temperature 98.0 F 99.0 F 98.2 F Pulse Rate 85 91 H 76 Respiratory 20 18 20 Rate Blood Pressure 98/67 L 128/86 137/85 O2 Sat by Pulse 99 100 98 Oximetry 10/01/15 10:58 Temperature Pulse Rate Respiratory Rate Blood Pressure 126/80 O2 Sat by Pulse Oximetry Intake and Output (last 12 hours): Intake & Output 09/30/15 10/01/15 10/01/15 18:59 06:59 18:59 Intake Total 2550 Output Total 800 1200 Balance -800 1350 Intake: Intake, IV Amount 1150 Left Wrist 1150 Tube Feeding 1150 Other 250 Output: Urine 800 1200 Urethral (Baker) 800 1200 Other: # Voids Urethral (Baker) 1 # Bowel Movements 2 - Medications Medications: Current Medications Dextrose/Sodium Chloride (Dextrose 5%/0.45% Ns 1000 Ml) 1,000 mls @ 50 mls/hr IV .Q20H [facility] Last Admin: 09/30/15 18:49 Dose: 50 mls/hr Lisinopril (Zestril) 5 mg PO DAILY [facility] Last Admin: 10/01/15 11:02 Dose: 5 mg Nystatin (Nystop Topical Powder) 1 applic TOP BID [facility] Last Admin: 10/01/15 11:03 Dose: 1 applic Petrolatum (Desitin Original) 0 gm TOP BID [facility] Last Admin: 10/01/15 11:03 Dose: 1 applic Phenytoin (Dilantin) 100 mg PEG TID [facility] Last Admin: 10/01/15 11:02 Dose: 100 mg Polyethylene Glycol (Miralax) 17 gm PEG BID [facility] Last Admin: 08/21/15 11:26 Dose: Not Given - Labs Labs (last 24 hours): Laboratory Results - last 24 hr 10/01/15 06:40 Sodium 138 Potassium 4.1 Chloride 103 Carbon Dioxide 27 Anion Gap 11 BUN 16 Creatinine 0.4 L Est GFR ( Amer) > 60 Est GFR (Non-Af Amer) > 60 Random Glucose 161 H Calcium 8.2 L Phosphorus 3.5 Magnesium 2.0 Total Bilirubin 0.3 AST 48 ALT 128 H Alkaline Phosphatase 112 Total Protein 6.9 Albumin 3.0 L Globulin 3.9 Albumin/Globulin Ratio 0.8 L - Constitutional Appears: Chronically Ill - Head Exam Head Exam: NORMAL INSPECTION - Eye Exam Eye Exam: PERRL - ENT Exam ENT Exam: Mucous Membranes Moist Additional comments: white exudate on lips and tongue - Respiratory Exam Respiratory Exam: Clear to PA & Lateral, NORMAL BREATHING PATTERN, UNREMARKABLE Additional comments: trach in place dressing clean - Cardiovascular Exam Cardiovascular Exam: REGULAR RHYTHM, +S1, +S2 - GI/Abdominal Exam GI & Abdominal Exam: Normal Bowel Sounds, Soft. absent: Distended, Firm Additional comments: peg in place dressing clean - Exam Additional comments: baker catheter in place crusted skin on scrotum - Extremities Exam Extremities exam: absent: pedal edema Additional comments: b/l hand edema improved from thursday - Neurological Exam Neurological exam: Altered - Skin Skin Exam: Dry, Normal Color Assessment/Plan (1) Anoxic encephalopathy Current Visit: No (2) Transaminitis Current Visit: No (3) Respiratory failure Current Visit: No (4) CAD (coronary artery disease) Current Visit: No (5) STEMI (ST elevation myocardial infarction) Current Visit: No (6) Seizures Current Visit: No (7) Prophylactic measure Current Visit: No <Donnell Ying - Last Filed: 10/01/15 15:39> Objective - Vital Signs/Intake and Output Vital Signs (last 24 hours): Vital Signs - 24 hr 09/30/15 10/01/15 10/01/15 22:06 05:00 10:58 Temperature 99.0 F 98.2 F Pulse Rate 91 H 76 Respiratory 18 20 Rate Blood Pressure 128/86 137/85 126/80 O2 Sat by Pulse 100 98 Oximetry 10/01/15 14:00 Temperature 98 F Pulse Rate 85 Respiratory 18 Rate Blood Pressure 131/74 O2 Sat by Pulse 100 Oximetry Intake and Output (last 12 hours): Intake & Output 09/30/15 10/01/15 10/01/15 18:59 06:59 18:59 Intake Total 2550 Output Total 800 1200 900 Balance -800 1350 -900 Intake: Intake, IV Amount 1150 Left Wrist 1150 Tube Feeding 1150 Other 250 Output: Urine 800 1200 900 Urethral (Baker) 800 1200 900 Other: # Voids Urethral (Baker) 1 # Bowel Movements 2 1 - Medications Medications: Current Medications Aspirin (Aspirin) 325 mg PO DAILY [facility] Clopidogrel Bisulfate (Plavix) 75 mg PO DAILY [facility] Dextrose/Sodium Chloride (Dextrose 5%/0.45% Ns 1000 Ml) 1,000 mls @ 50 mls/hr IV .Q20H [facility] Last Admin: 10/01/15 15:33 Dose: 50 mls/hr Lisinopril (Zestril) 5 mg PO DAILY [facility] Last Admin: 10/01/15 11:02 Dose: 5 mg Nystatin (Nystop Topical Powder) 1 applic TOP BID [facility] Last Admin: 10/01/15 11:03 Dose: 1 applic Petrolatum (Desitin Original) 0 gm TOP BID [facility] Last Admin: 10/01/15 11:03 Dose: 1 applic Phenytoin (Dilantin) 100 mg PEG TID [facility] Last Admin: 10/01/15 14:14 Dose: 100 mg Polyethylene Glycol (Miralax) 17 gm PEG BID [facility] Last Admin: 08/21/15 11:26 Dose: Not Given - Labs Labs (last 24 hours): Laboratory Results - last 24 hr 10/01/15 10/01/15 06:40 11:25 WBC 10.7 RBC 3.96 L Hgb 12.4 Hct 37.2 MCV 93.8 MCH 31.2 H MCHC 33.3 RDW 14.3 Plt Count 335 MPV 8.4 Neut % (Auto) 61.6 Lymph % (Auto) 11.7 L [place] % (Auto) 9.5 Eos % (Auto) 16.6 H Baso % (Auto) 0.6 Neut # 6.6 Lymph # 1.2 [place] # 1.0 H Eos # 1.8 H Baso # 0.1 Sodium 138 Potassium 4.1 Chloride 103 Carbon Dioxide 27 Anion Gap 11 BUN 16 Creatinine 0.4 L Est GFR ( Amer) > 60 Est GFR (Non-Af Amer) > 60 Random Glucose 161 H Calcium 8.2 L Phosphorus 3.5 Magnesium 2.0 Total Bilirubin 0.3 AST 48 ALT 128 H Alkaline Phosphatase 112 Total Protein 6.9 Albumin 3.0 L Globulin 3.9 Albumin/Globulin Ratio 0.8 L Attending/Attestation - Attestation I have personally seen and examined this patient.: Yes I have fully participated in the care of the patient.: Yes I have reviewed all pertinent clinical information: Yes Notes (Text): 10/01/15 15:39 Patient seen and examined with the resident. No change in clinical condition. Continue current management.
[2015-10-01 11:40] LABS: BASO # 0.1 K/uL (0.0-0.2); BASO % 0.6 % (0.0-2.0); EOS # 1.8 K/uL (0.0-0.7); EOS % 16.6 % (0.0-4.0); HEMOGLOBIN 12.4 g/dL (12.0-18.0); LYMPH # 1.2 K/uL (1.0-4.3); LYMPH % 11.7 % (20.0-40.0); MEAN CELL VOLUME 93.8 fL (80.0-94.0); MEAN CORPUSCULAR HEMOGLOBIN 31.2 pg (27.0-31.0); MEAN CORPUSCULAR HGB CONC 33.3 g/dL (33.0-37.0); MEAN PLATELET VOLUME 8.4 fL (7.2-11.7); MONO % 9.5 % (0.0-10.0); NEUT # 6.6 K/uL (1.8-7.0); NEUT % 61.6 % (50.0-75.0); RBC 3.96 Mil/uL (4.40-5.90); RED CELL DISTRIBUTION WIDTH 14.3 % (11.5-14.5); WHITE BLOOD COUNT 10.7 K/uL (4.8-10.8)
[2015-10-01] MEDS: Dextrose 5%/0.45% NS 1,000 ML IV SCH (15:33)
[2015-10-02] MEDS: Phenytoin 100 mg/4 ml Oral Susp UD PEG SCH ×3 (10:24→17:01)
[2015-10-02] MEDS: Zinc Oxide Topical 30 gm Tube TOP SCH ×2 (10:25→17:01)
[2015-10-02] MEDS: Dextrose 5%/0.45% NS 1,000 ML IV SCH (11:24)
--- NOTE | 2015-10-02 11:44 | CP.PCM.PN ---
<ViryJudith H - Last Filed: 10/02/15 11:42> Subjective - Subjective Subjective: PGY1/Dr. Demetrice Ying Medicine Note: Patient seen and examined at bedside. No mental status change. Patient unresponsive to verbal and painful stimuli. Patient's arms and hands flexed. Review of Systems - Review of Systems Systems not reviewed;Unavailable: Altered Mental Status Objective - Vital Signs/Intake and Output Vital Signs (last 24 hours): Vital Signs - 24 hr 10/01/15 10/01/15 10/02/15 14:00 21:00 05:56 Temperature 98 F 98.8 F 99 F Pulse Rate 85 90 92 H Respiratory 18 20 22 Rate Blood Pressure 131/74 128/78 153/90 H O2 Sat by Pulse 100 99 99 Oximetry Intake and Output (last 12 hours): Intake & Output 10/01/15 10/02/15 10/02/15 18:59 06:59 18:59 Intake Total 1250 Output Total 900 2225 Balance -900 -975 Intake: Intake, IV Amount 600 Left Wrist 550 Right Forearm 50 Tube Feeding 650 Output: Urine 900 2225 Urethral (Baker) 900 2225 Other: # Bowel Movements 1 - Medications Medications: Current Medications Aspirin (Aspirin) 325 mg PO DAILY [facility] Last Admin: 10/02/15 10:24 Dose: 325 mg Clopidogrel Bisulfate (Plavix) 75 mg PO DAILY [facility] Last Admin: 10/02/15 10:24 Dose: 75 mg Dextrose/Sodium Chloride (Dextrose 5%/0.45% Ns 1000 Ml) 1,000 mls @ 50 mls/hr IV .Q20H [facility] Last Admin: 10/02/15 11:24 Dose: 50 mls/hr Lisinopril (Zestril) 5 mg PO DAILY [facility] Last Admin: 10/02/15 10:24 Dose: 5 mg Nystatin (Nystop Topical Powder) 1 applic TOP BID [facility] Last Admin: 10/02/15 10:25 Dose: 1 applic Petrolatum (Desitin Original) 0 gm TOP BID [facility] Last Admin: 10/02/15 10:25 Dose: 1 applic Phenytoin (Dilantin) 100 mg PEG TID [facility] Last Admin: 10/02/15 10:24 Dose: 100 mg Polyethylene Glycol (Miralax) 17 gm PEG BID [facility] Last Admin: 08/21/15 11:26 Dose: Not Given - Labs Labs (last 24 hours): Laboratory Results - last 24 hr 10/01/15 11:25 WBC 10.7 RBC 3.96 L Hgb 12.4 Hct 37.2 MCV 93.8 MCH 31.2 H MCHC 33.3 RDW 14.3 Plt Count 335 MPV 8.4 Neut % (Auto) 61.6 Lymph % (Auto) 11.7 L [place] % (Auto) 9.5 Eos % (Auto) 16.6 H Baso % (Auto) 0.6 Neut # 6.6 Lymph # 1.2 [place] # 1.0 H Eos # 1.8 H Baso # 0.1 - Constitutional Appears: Chronically Ill - Eye Exam Pupil Exam: PERRL - ENT Exam ENT Exam: Mucous Membranes Moist - Respiratory Exam Respiratory Exam: Clear to PA & Lateral, NORMAL BREATHING PATTERN, UNREMARKABLE - Cardiovascular Exam Cardiovascular Exam: REGULAR RHYTHM, +S1, +S2 - GI/Abdominal Exam GI & Abdominal Exam: Normal Bowel Sounds, Soft. absent: Distended - Exam Additional comments: baker in place - Extremities Exam Extremities exam: absent: pedal edema - Neurological Exam Neurological exam: Altered - Skin Skin Exam: Dry, Normal Color Assessment/Plan (1) Anoxic encephalopathy Current Visit: Yes Status: Acute Comment: 10/02: breathing on vent 10/01: breathing with mechanical ventilation RR at 22 bpm 09/29: mechanical ventilation 09/28: breathing on vent 09/27: mechanical ventilation 09/26: mechanical ventilation, breathing at 14 bpm 09/25: On mechanical ventilation 09/24: Breathing on vent. No acute resp distress. 09/23: Breathing on vent. no respiratory distress. NAD. 09/22: breathing on vent. Heel support boots on for foot drop prevention. no respiratory distress. 09/21: continue on vent. Heel support boots on for foot drop prevention. 09/15: Pt awake, on vent, no change in mental status 09/14: patient on SIMV. No acute distress. 09/11: [id number] dependent 09/10: Pt. bxzrx-ie-evkj dependent. No change in mental status. 09/09: Patient awake. No acute changes. PEG feeds 10pm-8am. 09/08: Patient asleep and not responsive to verbal stimuli. NAD. Will continue to monitor. 09/07: Patient asleep, unable to arouse. No acute changes in condition. 09/06: Pt is awake, but only responsive to painful stimuli. Will continue to monitor 09/05: status unchanged, monitor 09/04: cont to monitor, pt unresponsive to verbal commands 09/03: No interval change, cont to monitor 09/02: Continue to monitor. 09/01: Continue to monitor, unchanged status. 08/31: status unchanged, will continue to monitor 08/30: awake and alert, eyes open, 08/29:Pt is more alert, able to open eyes; however, can not respond to verbal commands. will continue to monitor 08/28: Pt more alert today, continues to be unresponsive to verbal stimuli 08/27 No interval change in pt's condition, will continue to monitor 08/26 Patient's status remains the same 08/25 No improvement or change in mental status. Pt not responsive to verbal commands 08/24 Pt not responsive to verbal stimuli, only painful, unable to follow commands, pt continues to have swelling, minimal improvement, will continue to monitor, continue with dietary recommendations 08/22 Spontaneous movement, eyes open. given one dose of Lasix for increased swelling in upper extremities. GT bolus adjusted to dietary recommendations. 08/21 Spontaneous movement, opened eyes during examination. Per wound care nurse , Sabrina, pt is having skin breakdown due to excessive diarrhea. Recommended nystatin powder and sensicare cream to be applied on affected area. Pt's laxatives were removed. Gastric tube feeding will be made into 4 boluses, at 8am , 12pm, 4pm, 8 pm, per dietary recommendations. C diff cultures ordered. (2) Transaminitis Current Visit: Yes Status: Acute Comment: F/u CMP on Mondays and labs 10/01: tbili 0.3, AST 48, ALT 128, ALP 112 decreasing 09/27: AST 87, ALT 227, ALP 117, tbili 0.4 Dilantin level 10.4 started D5-1/2NS @ 50cc/hr 09/24: AST 140, ALT 209, alk phos 100. Increasing LFTs. 09/20: AST 49 , ALT 83 and Alk phos 97. Stable. 09/18: AST 42 , ALT 95 and Alk phos 117. Stable. 09/17: AST 50, [id number] and Alk phos 112. Stable. 09/14: AST 51, ALT 107 and AlK phos 118. Stable. 09/12: AST 49, ALT 99 and AlK phos 115. Improved. Recheck Q4days. Hep panel negative Continue to monitor LFTs (3) Respiratory failure Current Visit: Yes Status: Acute Comment: Patient is vent dependent. Dr. Salgado (pul) on case-help appreciated Continue patient on trach SIMV. Patient is vent dependent. Unable to wean at this time. Monitor (4) CAD (coronary artery disease) Current Visit: Yes Status: Acute Comment: Continue Lisinopril 5mg PO daily Continue ASA 325mg PO daily Continue Plavix 75mg PO daily (5) STEMI (ST elevation myocardial infarction) Current Visit: Yes Status: Acute Comment: cardiac stents on 06/13/15. Continue Lisinopril 5mg PO daily Continue Plavix 75mg PO daily Continue ASA 325mg PO daily (6) Seizures Current Visit: Yes Status: Acute Comment: 10/02: continue current amangement 10/01: no seixure activity observed. continue dilantin 09/29: continue current management 09/27: no seizure activity observed 09/26: continue current management 09/25: No seizure activity observed dilantin level 10.4 09/24: No seizure activity observed. 09/23: No seizure activity reported or noted 09/22: Continue current management 09/21: No seizure activity observed. Continue to monitor. 09/09:Continue current management. 09/01: dilantin level 5.7, continue current management. 08/30--> repeat Dilantin level in am, cont meds, SZ precaution Continue dilantin 100mg via PEG TID Continue to monitor for seizure activity (7) Prophylactic measure Current Visit: Yes Status: Acute Comment: Plavix 75 mg PO daily [facility] <Donnell Ying M - Last Filed: 10/02/15 15:53> Objective - Vital Signs/Intake and Output Vital Signs (last 24 hours): Vital Signs - 24 hr 10/01/15 10/02/15 10/02/15 21:00 05:56 14:51 Temperature 98.8 F 99 F 98.6 F Pulse Rate 90 92 H 116 H Respiratory 20 22 20 Rate Blood Pressure 128/78 153/90 H 122/74 O2 Sat by Pulse 99 99 98 Oximetry Intake and Output (last 12 hours): Intake & Output 10/01/15 10/02/15 10/02/15 18:59 06:59 18:59 Intake Total 1250 Output Total 900 2225 850 Balance -900 -975 -850 Intake: Intake, IV Amount 600 Left Wrist 550 Right Forearm 50 Tube Feeding 650 Output: Urine 900 2225 850 Urethral (Baker) 900 2225 850 Other: # Bowel Movements 1 - Medications Medications: Current Medications Aspirin (Aspirin) 325 mg PO DAILY [facility] Last Admin: 10/02/15 10:24 Dose: 325 mg Clopidogrel Bisulfate (Plavix) 75 mg PO DAILY [facility] Last Admin: 10/02/15 10:24 Dose: 75 mg Dextrose/Sodium Chloride (Dextrose 5%/0.45% Ns 1000 Ml) 1,000 mls @ 50 mls/hr IV .Q20H [facility] Last Admin: 10/02/15 11:24 Dose: 50 mls/hr Lisinopril (Zestril) 5 mg PO DAILY [facility] Last Admin: 10/02/15 10:24 Dose: 5 mg Nystatin (Nystop Topical Powder) 1 applic TOP BID [facility] Last Admin: 10/02/15 10:25 Dose: 1 applic Petrolatum (Desitin Original) 0 gm TOP BID [facility] Last Admin: 10/02/15 10:25 Dose: 1 applic Phenytoin (Dilantin) 100 mg PEG TID [facility] Last Admin: 10/02/15 13:19 Dose: 100 mg Polyethylene Glycol (Miralax) 17 gm PEG BID [facility] Last Admin: 08/21/15 11:26 Dose: Not Given Attending/Attestation - Attestation I have personally seen and examined this patient.: Yes I have fully participated in the care of the patient.: Yes I have reviewed all pertinent clinical information: Yes Notes (Text): 10/02/15 15:53 Patient seen and examined at bedside with the resident. No change in clinical condition. Continue current management.
[2015-10-03] MEDS: Dextrose 5%/0.45% NS 1,000 ML IV SCH (07:37)
[2015-10-03] MEDS: Phenytoin 100 mg/4 ml Oral Susp UD PEG SCH ×3 (10:16→17:19)
[2015-10-03] MEDS: Zinc Oxide Topical 30 gm Tube TOP SCH ×2 (10:16→18:49)
--- NOTE | 2015-10-03 10:23 | CP.PCM.PN ---
<Judith Baires H - Last Filed: 10/03/15 10:21> Subjective - Subjective Subjective: PGY1/Dr. Pernell Fuentesmi Medicine Note: Patient seen and examined at bedside. No acute mental status change. Patient on mechanical ventilation. Patient unresponsive to verbal and painful stimuli. Review of Systems - Review of Systems Systems not reviewed;Unavailable: Altered Mental Status Objective - Vital Signs/Intake and Output Vital Signs (last 24 hours): Vital Signs - 24 hr 10/02/15 10/02/15 10/03/15 14:51 22:22 05:38 Temperature 98.6 F 99.5 F 97.8 F Pulse Rate 116 H 83 93 H Respiratory 20 19 14 Rate Blood Pressure 122/74 126/78 124/81 O2 Sat by Pulse 98 100 99 Oximetry Intake and Output (last 12 hours): Intake & Output 10/02/15 10/03/15 10/03/15 18:59 06:59 18:59 Intake Total 1500 1050 Output Total 850 1300 Balance 650 -250 Intake: Intake, IV Amount 600 600 Left Wrist 600 600 Tube Feeding 900 450 Output: Urine 850 1300 Urethral (Yoo) 850 1300 - Medications Medications: Current Medications Aspirin (Aspirin) 325 mg PO DAILY [facility] Last Admin: 10/03/15 10:15 Dose: 325 mg Clopidogrel Bisulfate (Plavix) 75 mg PO DAILY [facility] Last Admin: 10/03/15 10:16 Dose: 75 mg Dextrose/Sodium Chloride (Dextrose 5%/0.45% Ns 1000 Ml) 1,000 mls @ 50 mls/hr IV .Q20H [facility] Last Admin: 10/03/15 07:37 Dose: 50 mls/hr Lisinopril (Zestril) 5 mg PO DAILY [facility] Last Admin: 10/03/15 10:16 Dose: 5 mg Nystatin (Nystop Topical Powder) 1 applic TOP BID [facility] Last Admin: 10/03/15 10:16 Dose: 1 applic Petrolatum (Desitin Original) 0 gm TOP BID [facility] Last Admin: 10/03/15 10:16 Dose: 1 applic Phenytoin (Dilantin) 100 mg PEG TID [facility] Last Admin: 10/03/15 10:16 Dose: 100 mg Polyethylene Glycol (Miralax) 17 gm PEG BID [facility] Last Admin: 08/21/15 11:26 Dose: Not Given - Constitutional Appears: Chronically Ill - Head Exam Head Exam: NORMAL INSPECTION - Eye Exam Eye Exam: PERRL - ENT Exam ENT Exam: Mucous Membranes Moist - Respiratory Exam Respiratory Exam: Clear to PA & Lateral, NORMAL BREATHING PATTERN, UNREMARKABLE - Cardiovascular Exam Cardiovascular Exam: REGULAR RHYTHM, +S1, +S2 - GI/Abdominal Exam GI & Abdominal Exam: Normal Bowel Sounds, Soft. absent: Distended, Firm - Extremities Exam Extremities exam: absent: pedal edema - Neurological Exam Neurological exam: Altered - Skin Skin Exam: Dry (sacral ulcer), Normal Color Assessment/Plan (1) Anoxic encephalopathy Current Visit: Yes Status: Acute Comment: 10/03: on mechanical ventilation, RR14 10/02: breathing on vent 10/01: breathing with mechanical ventilation RR at 22 bpm 09/29: mechanical ventilation 09/28: breathing on vent 09/27: mechanical ventilation 09/26: mechanical ventilation, breathing at 14 bpm 09/25: On mechanical ventilation 09/24: Breathing on vent. No acute resp distress. 09/23: Breathing on vent. no respiratory distress. NAD. 09/22: breathing on vent. Heel support boots on for foot drop prevention. no respiratory distress. 09/21: continue on vent. Heel support boots on for foot drop prevention. 09/15: Pt awake, on vent, no change in mental status 09/14: patient on SIMV. No acute distress. 09/11: [id number] dependent 09/10: Pt. lkggi-xr-[id number] dependent. No change in mental status. 09/09: Patient awake. No acute changes. PEG feeds 10pm-8am. 09/08: Patient asleep and not responsive to verbal stimuli. NAD. Will continue to monitor. 09/07: Patient asleep, unable to arouse. No acute changes in condition. 09/06: Pt is awake, but only responsive to painful stimuli. Will continue to monitor 09/05: status unchanged, monitor 09/04: cont to monitor, pt unresponsive to verbal commands 09/03: No interval change, cont to monitor 09/02: Continue to monitor. 09/01: Continue to monitor, unchanged status. 08/31: status unchanged, will continue to monitor 08/30: awake and alert, eyes open, 08/29:Pt is more alert, able to open eyes; however, can not respond to verbal commands. will continue to monitor 08/28: Pt more alert today, continues to be unresponsive to verbal stimuli 08/27 No interval change in pt's condition, will continue to monitor 08/26 Patient's status remains the same 08/25 No improvement or change in mental status. Pt not responsive to verbal commands 08/24 Pt not responsive to verbal stimuli, only painful, unable to follow commands, pt continues to have swelling, minimal improvement, will continue to monitor, continue with dietary recommendations 08/22 Spontaneous movement, eyes open. given one dose of Lasix for increased swelling in upper extremities. GT bolus adjusted to dietary recommendations. 08/21 Spontaneous movement, opened eyes during examination. Per wound care nurse , Sabrina, pt is having skin breakdown due to excessive diarrhea. Recommended nystatin powder and sensicare cream to be applied on affected area. Pt's laxatives were removed. Gastric tube feeding will be made into 4 boluses, at 8am , 12pm, 4pm, 8 pm, per dietary recommendations. C diff cultures ordered. (2) Transaminitis Current Visit: Yes Status: Acute Comment: F/u CMP on Mondays and labs 10/01: tbili 0.3, AST 48, ALT 128, ALP 112 decreasing 09/27: AST 87, ALT 227, ALP 117, tbili 0.4 Dilantin level 10.4 started D5-1/2NS @ 50cc/hr 09/24: AST 140, ALT 209, alk phos 100. Increasing LFTs. 09/20: AST 49 , ALT 83 and Alk phos 97. Stable. 09/18: AST 42 , ALT 95 and Alk phos 117. Stable. 09/17: AST 50, [id number] and Alk phos 112. Stable. 09/14: AST 51, ALT 107 and AlK phos 118. Stable. 09/12: AST 49, ALT 99 and AlK phos 115. Improved. Recheck Q4days. Hep panel negative Continue to monitor LFTs (3) Respiratory failure Current Visit: Yes Status: Acute Comment: Patient is vent dependent. Dr. Salgado (pulm) on case-help appreciated Continue patient on trach SIMV. Patient is vent dependent. Unable to wean at this time. Monitor (4) CAD (coronary artery disease) Current Visit: Yes Status: Acute Comment: Continue Lisinopril 5mg PO daily Continue ASA 325mg PO daily Continue Plavix 75mg PO daily (5) STEMI (ST elevation myocardial infarction) Current Visit: Yes Status: Acute Comment: cardiac stents on 06/13/15. Continue Lisinopril 5mg PO daily Continue Plavix 75mg PO daily Continue ASA 325mg PO daily (6) Seizures Current Visit: Yes Status: Acute Comment: 10/03: no seizure activity observed 10/02: continue current amangement 10/01: no seixure activity observed. continue dilantin 09/29: continue current management 09/27: no seizure activity observed 09/26: continue current management 09/25: No seizure activity observed dilantin level 10.4 09/24: No seizure activity observed. 09/23: No seizure activity reported or noted 09/22: Continue current management 09/21: No seizure activity observed. Continue to monitor. 09/09:Continue current management. 09/01: dilantin level 5.7, continue current management. 08/30--> repeat Dilantin level in am, cont meds, SZ precaution Continue dilantin 100mg via PEG TID Continue to monitor for seizure activity (7) Prophylactic measure Current Visit: Yes Status: Acute Comment: Plavix 75 mg PO daily [facility] <Donnell Ying M - Last Filed: 10/03/15 17:39> Objective - Vital Signs/Intake and Output Vital Signs (last 24 hours): Vital Signs - 24 hr 10/02/15 10/03/15 10/03/15 22:22 05:38 13:00 Temperature 99.5 F 97.8 F 98.7 F Pulse Rate 83 93 H 78 Respiratory 19 14 15 Rate Blood Pressure 126/78 124/81 116/70 O2 Sat by Pulse 100 99 100 Oximetry Intake and Output (last 12 hours): Intake & Output 10/02/15 10/03/15 10/03/15 18:59 06:59 18:59 Intake Total 1500 1050 Output Total 850 1300 800 Balance 650 -250 -800 Intake: Intake, IV Amount 600 600 Left Wrist 600 600 Tube Feeding 900 450 Output: Urine 850 1300 800 Urethral (Yoo) 850 1300 800 Other: # Bowel Movements 1 - Medications Medications: Current Medications Aspirin (Aspirin) 325 mg PO DAILY [facility] Last Admin: 10/03/15 10:15 Dose: 325 mg Clopidogrel Bisulfate (Plavix) 75 mg PO DAILY [facility] Last Admin: 10/03/15 10:16 Dose: 75 mg Dextrose/Sodium Chloride (Dextrose 5%/0.45% Ns 1000 Ml) 1,000 mls @ 50 mls/hr IV .Q20H [facility] Last Admin: 10/03/15 07:37 Dose: 50 mls/hr Lisinopril (Zestril) 5 mg PO DAILY [facility] Last Admin: 10/03/15 10:16 Dose: 5 mg Nystatin (Nystop Topical Powder) 1 applic TOP BID [facility] Last Admin: 10/03/15 10:16 Dose: 1 applic Petrolatum (Desitin Original) 0 gm TOP BID [facility] Last Admin: 10/03/15 10:16 Dose: 1 applic Phenytoin (Dilantin) 100 mg PEG TID [facility] Last Admin: 10/03/15 17:19 Dose: 100 mg Polyethylene Glycol (Miralax) 17 gm PEG BID [facility] Last Admin: 08/21/15 11:26 Dose: Not Given Attending/Attestation - Attestation I have personally seen and examined this patient.: Yes I have fully participated in the care of the patient.: Yes I have reviewed all pertinent clinical information: Yes Notes (Text): 10/03/15 17:38 Patient seen and examined at bedside. No change in clinical condition. Continue current management.
[2015-10-04] MEDS: Dextrose 5%/0.45% NS 1,000 ML IV SCH (05:17)
[2015-10-04 07:50] LABS: ALBUMIN 3.2 g/dL (3.5-5.0)
[2015-10-04 07:52] LABS: ALB/GLOB RATIO 0.9 (1.0-2.1); GFR NON-AFRICAN AMERICAN > 60
[2015-10-04 07:53] LABS: ALT/SGPT 109 U/L (21-72); AST/SGOT 54 U/L (17-59); BLOOD UREA NITROGEN 18 mg/dL (9-20)
[2015-10-04 07:54] LABS: BASO % 0.5 % (0.0-2.0); EOS % 21.3 % (0.0-4.0); HEMOGLOBIN 12.3 g/dL (12.0-18.0); LYMPH # 1.2 K/uL (1.0-4.3); LYMPH % 12.7 % (20.0-40.0); MEAN CELL VOLUME 93.8 fL (80.0-94.0); MEAN CORPUSCULAR HEMOGLOBIN 31.3 pg (27.0-31.0); MEAN CORPUSCULAR HGB CONC 33.4 g/dL (33.0-37.0); MEAN PLATELET VOLUME 8.6 fL (7.2-11.7); MONO # 0.9 K/uL (0.0-0.8); MONO % 9.2 % (0.0-10.0); NEUT # 5.4 K/uL (1.8-7.0); NEUT % 56.3 % (50.0-75.0); PLATELET COUNT 297 K/uL (130-400); RBC 3.91 Mil/uL (4.40-5.90); RED CELL DISTRIBUTION WIDTH 14.3 % (11.5-14.5); WHITE BLOOD COUNT 9.6 K/uL (4.8-10.8)
[2015-10-04] MEDS: Phenytoin 100 mg/4 ml Oral Susp UD PEG SCH ×3 (10:13→17:42)
[2015-10-04] MEDS: Zinc Oxide Topical 30 gm Tube TOP SCH ×2 (10:14→17:43)
--- NOTE | 2015-10-04 10:27 | CP.PCM.PN ---
<ViryJudith H - Last Filed: 10/04/15 10:24> Subjective - Subjective Subjective: Patient seen and examined at bedside. Patient nonresponsive to verbal and painful stimuli. Patient opens eyes and moves arms spontaneously. Review of Systems - Review of Systems Systems not reviewed;Unavailable: Altered Mental Status Objective - Vital Signs/Intake and Output Vital Signs (last 24 hours): Vital Signs - 24 hr 10/03/15 10/03/15 10/04/15 13:00 21:27 05:39 Temperature 98.7 F 98.0 F 98.5 F Pulse Rate 78 88 91 H Respiratory 15 16 24 Rate Blood Pressure 116/70 123/80 135/82 O2 Sat by Pulse 100 100 100 Oximetry Intake and Output (last 12 hours): Intake & Output 10/03/15 10/04/15 10/04/15 18:59 06:59 18:59 Intake Total 1500 1500 Output Total 800 250 Balance 700 1250 Intake: Intake, IV Amount 600 600 Left Wrist 600 Right Forearm 600 Tube Feeding 900 900 Output: Gastric Amount 0 Stomach 0 Urine 800 250 Urethral (Yoo) 800 250 Other: # Bowel Movements 1 - Medications Medications: Current Medications Aspirin (Aspirin) 325 mg PO DAILY [facility] Last Admin: 10/04/15 10:14 Dose: 325 mg Clopidogrel Bisulfate (Plavix) 75 mg PO DAILY [facility] Last Admin: 10/04/15 10:13 Dose: 75 mg Lisinopril (Zestril) 5 mg PO DAILY [facility] Last Admin: 10/04/15 10:14 Dose: 5 mg Nystatin (Nystop Topical Powder) 1 applic TOP BID [facility] Last Admin: 10/04/15 10:14 Dose: 1 applic Petrolatum (Desitin Original) 0 gm TOP BID [facility] Last Admin: 10/04/15 10:14 Dose: 1 applic Phenytoin (Dilantin) 100 mg PEG TID [facility] Last Admin: 10/04/15 10:13 Dose: 100 mg Polyethylene Glycol (Miralax) 17 gm PEG BID [facility] Last Admin: 08/21/15 11:26 Dose: Not Given - Labs Labs (last 24 hours): Laboratory Results - last 24 hr 10/04/15 07:14 WBC 9.6 RBC 3.91 L Hgb 12.3 Hct 36.7 MCV 93.8 MCH 31.3 H MCHC 33.4 RDW 14.3 Plt Count 297 MPV 8.6 Neut % (Auto) 56.3 Lymph % (Auto) 12.7 L Barry % (Auto) 9.2 Eos % (Auto) 21.3 H Baso % (Auto) 0.5 Neut # 5.4 Lymph # 1.2 Barry # 0.9 H Eos # 2.0 H Baso # 0.0 Sodium 140 Potassium 4.0 Chloride 103 Carbon Dioxide 29 Anion Gap 12 BUN 18 Creatinine 0.4 L Est GFR ( Amer) > 60 Est GFR (Non-Af Amer) > 60 Random Glucose 137 H Calcium 9.0 Phosphorus 4.4 Magnesium 2.1 Total Bilirubin 0.2 AST 54 ALT 109 H Alkaline Phosphatase 111 Total Protein 6.9 Albumin 3.2 L Globulin 3.7 Albumin/Globulin Ratio 0.9 L - Constitutional Appears: Chronically Ill - Head Exam Head Exam: NORMAL INSPECTION - Eye Exam Eye Exam: PERRL Pupil Exam: NORMAL ACCOMODATION, PERRL - ENT Exam ENT Exam: Mucous Membranes Moist - Respiratory Exam Respiratory Exam: Rales, NORMAL BREATHING PATTERN - Cardiovascular Exam Cardiovascular Exam: REGULAR RHYTHM, +S1, +S2 - GI/Abdominal Exam GI & Abdominal Exam: Normal Bowel Sounds, Soft. absent: Distended, Firm - Extremities Exam Extremities exam: normal capillary refill. absent: pedal edema - Neurological Exam Neurological exam: Altered - Skin Skin Exam: Dry, Normal Color Assessment/Plan (1) Anoxic encephalopathy Current Visit: Yes Status: Acute Comment: 10/04: breathing on vent 10/03: on mechanical ventilation, RR14 10/02: breathing on vent 10/01: breathing with mechanical ventilation RR at 22 bpm 09/29: mechanical ventilation 09/28: breathing on vent 09/27: mechanical ventilation 09/26: mechanical ventilation, breathing at 14 bpm 09/25: On mechanical ventilation 09/24: Breathing on vent. No acute resp distress. 09/23: Breathing on vent. no respiratory distress. NAD. 09/22: breathing on vent. Heel support boots on for foot drop prevention. no respiratory distress. 09/21: continue on vent. Heel support boots on for foot drop prevention. 09/15: Pt awake, on vent, no change in mental status 09/14: patient on SIMV. No acute distress. 09/11: [id number] dependent 09/10: Pt. [id number]-eh-[id number] dependent. No change in mental status. 09/09: Patient awake. No acute changes. PEG feeds 10pm-8am. 09/08: Patient asleep and not responsive to verbal stimuli. NAD. Will continue to monitor. 09/07: Patient asleep, unable to arouse. No acute changes in condition. 09/06: Pt is awake, but only responsive to painful stimuli. Will continue to monitor 09/05: status unchanged, monitor 09/04: cont to monitor, pt unresponsive to verbal commands 09/03: No interval change, cont to monitor 09/02: Continue to monitor. 09/01: Continue to monitor, unchanged status. 08/31: status unchanged, will continue to monitor 08/30: awake and alert, eyes open, 08/29:Pt is more alert, able to open eyes; however, can not respond to verbal commands. will continue to monitor 08/28: Pt more alert today, continues to be unresponsive to verbal stimuli 08/27 No interval change in pt's condition, will continue to monitor 08/26 Patient's status remains the same 08/25 No improvement or change in mental status. Pt not responsive to verbal commands 08/24 Pt not responsive to verbal stimuli, only painful, unable to follow commands, pt continues to have swelling, minimal improvement, will continue to monitor, continue with dietary recommendations 08/22 Spontaneous movement, eyes open. given one dose of Lasix for increased swelling in upper extremities. GT bolus adjusted to dietary recommendations. 08/21 Spontaneous movement, opened eyes during examination. Per wound care nurse Sabrina, pt is having skin breakdown due to excessive diarrhea. Recommended nystatin powder and sensicare cream to be applied on affected area. Pt's laxatives were removed. Gastric tube feeding will be made into 4 boluses, at 8am , 12pm, 4pm, 8 pm, per dietary recommendations. C diff cultures ordered. (2) Transaminitis Current Visit: Yes Status: Acute Comment: F/u CMP on Mondays and labs 10/04: AST 54, ALT 109, ALP 11, tbili 0.2 improving D/C fluids 10/01: tbili 0.3, AST 48, ALT 128, ALP 112 decreasing 09/27: AST 87, ALT 227, ALP 117, tbili 0.4 Dilantin level 10.4 started D5-1/2NS @ 50cc/hr 09/24: AST 140, ALT 209, alk phos 100. Increasing LFTs. 09/20: AST 49 , ALT 83 and Alk phos 97. Stable. 09/18: AST 42 , ALT 95 and Alk phos 117. Stable. 09/17: AST 50, [id number] and Alk phos 112. Stable. 09/14: AST 51, ALT 107 and AlK phos 118. Stable. 09/12: AST 49, ALT 99 and AlK phos 115. Improved. Recheck Q4days. Hep panel negative Continue to monitor LFTs (3) Respiratory failure Current Visit: Yes Status: Acute Comment: 10/03: fluids were added to decrease LFTs 09/27. D/C fluids today Patient is vent dependent. Dr. Salgado (pul) on case-help appreciated Continue patient on trach SIMV. Patient is vent dependent. Unable to wean at this time. Monitor (4) CAD (coronary artery disease) Current Visit: Yes Status: Acute Comment: Continue Lisinopril 5mg PO daily Continue ASA 325mg PO daily Continue Plavix 75mg PO daily (5) STEMI (ST elevation myocardial infarction) Current Visit: Yes Status: Acute Comment: cardiac stents on 06/13/15. Continue Lisinopril 5mg PO daily Continue Plavix 75mg PO daily Continue ASA 325mg PO daily (6) Seizures Current Visit: Yes Status: Acute Comment: 10/04: no seizure activity observed 10/03: no seizure activity observed 10/02: continue current amangement 10/01: no seixure activity observed. continue dilantin 09/29: continue current management 09/27: no seizure activity observed 09/26: continue current management 09/25: No seizure activity observed dilantin level 10.4 09/24: No seizure activity observed. 09/23: No seizure activity reported or noted 09/22: Continue current management 09/21: No seizure activity observed. Continue to monitor. 09/09:Continue current management. 09/01: dilantin level 5.7, continue current management. 08/30--> repeat Dilantin level in am, cont meds, SZ precaution Continue dilantin 100mg via PEG TID Continue to monitor for seizure activity (7) Prophylactic measure Current Visit: Yes Status: Acute Comment: Plavix 75 mg PO daily [facility] <Donnell Ying M - Last Filed: 10/04/15 16:44> Objective - Vital Signs/Intake and Output Vital Signs (last 24 hours): Vital Signs - 24 hr 10/03/15 10/04/15 10/04/15 21:27 05:39 08:00 Temperature 98.0 F 98.5 F Pulse Rate 88 91 H 91 H Respiratory 16 24 Rate Blood Pressure 123/80 135/82 O2 Sat by Pulse 100 100 Oximetry 10/04/15 14:06 Temperature 98.6 F Pulse Rate 91 H Respiratory 20 Rate Blood Pressure 128/89 O2 Sat by Pulse 100 Oximetry Intake and Output (last 12 hours): Intake & Output 10/03/15 10/04/15 10/04/15 18:59 06:59 18:59 Intake Total 1500 1500 Output Total 800 250 Balance 700 1250 Intake: Intake, IV Amount 600 600 Left Wrist 600 Right Forearm 600 Tube Feeding 900 900 Output: Gastric Amount 0 Stomach 0 Urine 800 250 Urethral (Yoo) 800 250 Other: # Bowel Movements 1 - Medications Medications: Current Medications Aspirin (Aspirin) 325 mg PO DAILY [facility] Last Admin: 10/04/15 10:14 Dose: 325 mg Clopidogrel Bisulfate (Plavix) 75 mg PO DAILY [facility] Last Admin: 10/04/15 10:13 Dose: 75 mg Lisinopril (Zestril) 5 mg PO DAILY [facility] Last Admin: 10/04/15 10:14 Dose: 5 mg Nystatin (Nystop Topical Powder) 1 applic TOP BID [facility] Last Admin: 10/04/15 10:14 Dose: 1 applic Petrolatum (Desitin Original) 0 gm TOP BID [facility] Last Admin: 10/04/15 10:14 Dose: 1 applic Phenytoin (Dilantin) 100 mg PEG TID [facility] Last Admin: 10/04/15 14:52 Dose: 100 mg Polyethylene Glycol (Miralax) 17 gm PEG BID [facility] Last Admin: 08/21/15 11:26 Dose: Not Given - Labs Labs (last 24 hours): Laboratory Results - last 24 hr 10/04/15 07:14 WBC 9.6 RBC 3.91 L Hgb 12.3 Hct 36.7 MCV 93.8 MCH 31.3 H MCHC 33.4 RDW 14.3 Plt Count 297 MPV 8.6 Neut % (Auto) 56.3 Lymph % (Auto) 12.7 L Barry % (Auto) 9.2 Eos % (Auto) 21.3 H Baso % (Auto) 0.5 Neut # 5.4 Lymph # 1.2 Barry # 0.9 H Eos # 2.0 H Baso # 0.0 Neutrophils % (Manual) 58 Band Neutrophils % 4 H Lymphocytes % (Manual) 8 L Monocytes % (Manual) 6 Eosinophils % (Manual) 24 H Platelet Estimate Normal Hypochromasia (manual) Slight Poikilocytosis (manual Slight Anisocytosis (manual) Slight Sodium 140 Potassium 4.0 Chloride 103 Carbon Dioxide 29 Anion Gap 12 BUN 18 Creatinine 0.4 L Est GFR ( Amer) > 60 Est GFR (Non-Af Amer) > 60 Random Glucose 137 H Calcium 9.0 Phosphorus 4.4 Magnesium 2.1 Total Bilirubin 0.2 AST 54 ALT 109 H Alkaline Phosphatase 111 Total Protein 6.9 Albumin 3.2 L Globulin 3.7 Albumin/Globulin Ratio 0.9 L Attending/Attestation - Attestation I have personally seen and examined this patient.: Yes I have fully participated in the care of the patient.: Yes I have reviewed all pertinent clinical information: Yes Notes (Text): 10/04/15 16:44 Patient seen and examined at bedside with the residents. No change in clinical condition. Continue current management.
[2015-10-04 10:40] LABS: NEUTROPHIL 58 % (50-75); TOTAL CELLS COUNTED 100
[2015-10-04 10:41] LABS: BANDS 4 % (0-0); EOSINOPHIL 24 % (0-4); LYMPHOCYTE 8 % (20-40); MONOCYTE 6 % (0-10); PLATELET ESTIMATE NORMAL (NORMAL)
[2015-10-04 10:42] LABS: ANISOCYTOSIS SLIGHT; HYPOCHROMIC SLIGHT; POIKILOCYTOSIS SLIGHT
[2015-10-05] MEDS: Phenytoin 100 mg/4 ml Oral Susp UD PEG SCH ×3 (09:19→17:04)
[2015-10-05] MEDS: Zinc Oxide Topical 30 gm Tube TOP SCH ×2 (09:20→17:04)
--- NOTE | 2015-10-05 10:14 | CP.PCM.PN ---
<ViryJudith H - Last Filed: 10/05/15 10:11> Subjective - Subjective Subjective: PGY1/Dr. Pernell Ying's service Medicine Note: Patient seen and examined at bedside. Patient unresponsive to verbal or painful stimuli. Patient not opening eyes during exam. Review of Systems - Review of Systems Systems not reviewed;Unavailable: Altered Mental Status Objective - Vital Signs/Intake and Output Vital Signs (last 24 hours): Vital Signs - 24 hr 10/04/15 10/04/15 10/04/15 14:06 20:00 21:51 Temperature 98.6 F 98.0 F Pulse Rate 91 H 95 H 95 H Respiratory 20 18 Rate Blood Pressure 128/89 131/87 O2 Sat by Pulse 100 99 Oximetry 10/05/15 10/05/15 05:38 08:50 Temperature 98.9 F Pulse Rate 98 H 98 H Respiratory 18 Rate Blood Pressure 135/88 O2 Sat by Pulse 100 Oximetry Intake and Output (last 12 hours): Intake & Output 10/04/15 10/05/15 10/05/15 18:59 06:59 18:59 Intake Total 1100 900 Output Total 700 1000 Balance 400 -100 Intake: Intake, IV Amount 200 Right Antecubital 200 Tube Feeding 750 700 Other 150 200 Output: Urine 700 1000 Urethral (Yoo) 700 1000 Other: # Bowel Movements 2 1 - Medications Medications: Current Medications Aspirin (Aspirin) 325 mg PO DAILY [facility] Last Admin: 10/05/15 09:19 Dose: 325 mg Clopidogrel Bisulfate (Plavix) 75 mg PO DAILY [facility] Last Admin: 10/05/15 09:19 Dose: 75 mg Lisinopril (Zestril) 5 mg PO DAILY [facility] Last Admin: 10/05/15 09:19 Dose: 5 mg Nystatin (Nystop Topical Powder) 1 applic TOP BID [facility] Last Admin: 10/05/15 09:19 Dose: 1 applic Petrolatum (Desitin Original) 0 gm TOP BID [facility] Last Admin: 10/05/15 09:20 Dose: 1 applic Phenytoin (Dilantin) 100 mg PEG TID [facility] Last Admin: 10/05/15 09:19 Dose: 100 mg Polyethylene Glycol (Miralax) 17 gm PEG BID [facility] Last Admin: 08/21/15 11:26 Dose: Not Given - Labs Labs (last 24 hours): Laboratory Results - last 24 hr 10/04/15 07:14 Neutrophils % (Manual) 58 Band Neutrophils % 4 H Lymphocytes % (Manual) 8 L Monocytes % (Manual) 6 Eosinophils % (Manual) 24 H Platelet Estimate Normal Hypochromasia (manual) Slight Poikilocytosis (manual Slight Anisocytosis (manual) Slight - Constitutional Appears: Non-toxic, No Acute Distress, Chronically Ill - Head Exam Head Exam: NORMAL INSPECTION - Eye Exam Eye Exam: EOMI - ENT Exam ENT Exam: Mucous Membranes Moist - Respiratory Exam Respiratory Exam: Rhonchi, NORMAL BREATHING PATTERN Additional comments: trach collar - on mechanical ventilation - Cardiovascular Exam Cardiovascular Exam: REGULAR RHYTHM, +S1, +S2 - GI/Abdominal Exam GI & Abdominal Exam: Normal Bowel Sounds, Soft. 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 breathing on vent 10/04: breathing on vent 10/03: on mechanical ventilation, RR14 10/02: breathing on vent 10/01: breathing with mechanical ventilation RR at 22 bpm 09/29: mechanical ventilation 09/28: breathing on vent 09/27: mechanical ventilation 09/26: mechanical ventilation, breathing at 14 bpm 09/25: On mechanical ventilation 09/24: Breathing on vent. No acute resp distress. 09/23: Breathing on vent. no respiratory distress. NAD. 09/22: breathing on vent. Heel support boots on for foot drop prevention. no respiratory distress. 09/21: continue on vent. Heel support boots on for foot drop prevention. 09/15: Pt awake, on vent, no change in mental status 09/14: patient on SIMV. No acute distress. 09/11: [id number] dependent 09/10: Pt. [id number] dependent. No change in mental status. 09/09: Patient awake. No acute changes. PEG feeds 10pm-8am. 09/08: Patient asleep and not responsive to verbal stimuli. NAD. Will continue to monitor. 09/07: Patient asleep, unable to arouse. No acute changes in condition. 09/06: Pt is awake, but only responsive to painful stimuli. Will continue to monitor 09/05: status unchanged, monitor 09/04: cont to monitor, pt unresponsive to verbal commands 09/03: No interval change, cont to monitor 09/02: Continue to monitor. 09/01: Continue to monitor, unchanged status. 08/31: status unchanged, will continue to monitor 08/30: awake and alert, eyes open, 08/29:Pt is more alert, able to open eyes; however, can not respond to verbal commands. will continue to monitor 08/28: Pt more alert today, continues to be unresponsive to verbal stimuli 08/27 No interval change in pt's condition, will continue to monitor 08/26 Patient's status remains the same 08/25 No improvement or change in mental status. Pt not responsive to verbal commands 08/24 Pt not responsive to verbal stimuli, only painful, unable to follow commands, pt continues to have swelling, minimal improvement, will continue to monitor, continue with dietary recommendations 08/22 Spontaneous movement, eyes open. given one dose of Lasix for increased swelling in upper extremities. GT bolus adjusted to dietary recommendations. 08/21 Spontaneous movement, opened eyes during examination. Per wound care nurse , Sabrina, pt is having skin breakdown due to excessive diarrhea. Recommended nystatin powder and sensicare cream to be applied on affected area. Pt's laxatives were removed. Gastric tube feeding will be made into 4 boluses, at 8am , 12pm, 4pm, 8 pm, per dietary recommendations. C diff cultures ordered. (2) Transaminitis Current Visit: Yes Status: Acute Comment: F/u CMP on Mondays and labs 10/04: AST 54, ALT 109, ALP 11, tbili 0.2 improving D/C fluids 10/01: tbili 0.3, AST 48, ALT 128, ALP 112 decreasing 09/27: AST 87, ALT 227, ALP 117, tbili 0.4 Dilantin level 10.4 started D5-1/2NS @ 50cc/hr 09/24: AST 140, ALT 209, alk phos 100. Increasing LFTs. 09/20: AST 49 , ALT 83 and Alk phos 97. Stable. 09/18: AST 42 , ALT 95 and Alk phos 117. Stable. 09/17: AST 50, [id number] and Alk phos 112. Stable. 09/14: AST 51, ALT 107 and AlK phos 118. Stable. 09/12: AST 49, ALT 99 and AlK phos 115. Improved. Recheck Q4days. Hep panel negative Continue to monitor LFTs (3) Respiratory failure Current Visit: Yes Status: Acute Comment: 10/05: rhonchi auscultated. considering CXR 10/04: fluids were added to decrease LFTs 09/27. D/C fluids today Patient is vent dependent. Dr. Salgado (pul) on case-help appreciated Continue patient on trach SIMV. Patient is vent dependent. Unable to wean at this time. Monitor (4) CAD (coronary artery disease) Current Visit: Yes Status: Acute Comment: Continue Lisinopril 5mg PO daily Continue ASA 325mg PO daily Continue Plavix 75mg PO daily (5) STEMI (ST elevation myocardial infarction) Current Visit: Yes Status: Acute Comment: cardiac stents on 06/13/15. Continue Lisinopril 5mg PO daily Continue Plavix 75mg PO daily Continue ASA 325mg PO daily (6) Seizures Current Visit: Yes Status: Acute Comment: 10/05: no seizure activity 10/04: no seizure activity observed 10/03: no seizure activity observed 10/02: continue current amangement 10/01: no seixure activity observed. continue dilantin 09/29: continue current management 09/27: no seizure activity observed 09/26: continue current management 09/25: No seizure activity observed dilantin level 10.4 09/24: No seizure activity observed. 09/23: No seizure activity reported or noted 09/22: Continue current management 09/21: No seizure activity observed. Continue to monitor. 09/09:Continue current management. 09/01: dilantin level 5.7, continue current management. 08/30--> repeat Dilantin level in am, cont meds, SZ precaution Continue dilantin 100mg via PEG TID Continue to monitor for seizure activity (7) Prophylactic measure Current Visit: Yes Status: Acute Comment: Plavix 75 mg PO daily [facility] <Donnell Ying - Last Filed: 10/05/15 13:26> Objective - Vital Signs/Intake and Output Vital Signs (last 24 hours): Vital Signs - 24 hr 10/04/15 10/04/15 10/04/15 14:06 20:00 21:51 Temperature 98.6 F 98.0 F Pulse Rate 91 H 95 H 95 H Respiratory 20 18 Rate Blood Pressure 128/89 131/87 O2 Sat by Pulse 100 99 Oximetry 10/05/15 10/05/15 05:38 08:50 Temperature 98.9 F Pulse Rate 98 H 98 H Respiratory 18 Rate Blood Pressure 135/88 O2 Sat by Pulse 100 Oximetry Intake and Output (last 12 hours): Intake & Output 10/04/15 10/05/15 10/05/15 18:59 06:59 18:59 Intake Total 1100 900 Output Total 700 1000 Balance 400 -100 Intake: Intake, IV Amount 200 Right Antecubital 200 Tube Feeding 750 700 Other 150 200 Output: Urine 700 1000 Urethral (Yoo) 700 1000 Other: # Bowel Movements 2 1 - Medications Medications: Current Medications Aspirin (Aspirin) 325 mg PO DAILY [facility] Last Admin: 10/05/15 09:19 Dose: 325 mg Clopidogrel Bisulfate (Plavix) 75 mg PO DAILY [facility] Last Admin: 10/05/15 09:19 Dose: 75 mg Lisinopril (Zestril) 5 mg PO DAILY [facility] Last Admin: 10/05/15 09:19 Dose: 5 mg Nystatin (Nystop Topical Powder) 1 applic TOP BID [facility] Last Admin: 10/05/15 09:19 Dose: 1 applic Petrolatum (Desitin Original) 0 gm TOP BID [facility] Last Admin: 10/05/15 09:20 Dose: 1 applic Phenytoin (Dilantin) 100 mg PEG TID [facility] Last Admin: 10/05/15 09:19 Dose: 100 mg Polyethylene Glycol (Miralax) 17 gm PEG BID [facility] Last Admin: 08/21/15 11:26 Dose: Not Given Attending/Attestation - Attestation I have personally seen and examined this patient.: Yes I have fully participated in the care of the patient.: Yes I have reviewed all pertinent clinical information: Yes Notes (Text): 10/05/15 13:26 Patient seen and examined at bedside with the resident. Mild rhonchi on auscultation in the bilateral lung carter. Repeat x-ray chest. One dose of Lasix today.
[2015-10-06] MEDS: Phenytoin 100 mg/4 ml Oral Susp UD PEG SCH ×3 (09:25→17:01)
[2015-10-06] MEDS: Zinc Oxide Topical 30 gm Tube TOP SCH ×2 (09:26→17:02)
--- NOTE | 2015-10-06 10:23 | RAD ---
HISTORY: pneumonia vs. congestion COMPARISON: 09/12/2015 FINDINGS: LUNGS: Tracheostomy tube. Left apical pleural thickening with upper lobe granulomatous changes. Patchy right basilar airspace opacity. Left costophrenic angle excluded from the study. PLEURA: No significant pleural effusion identified, no pneumothorax apparent. CARDIOVASCULAR: Normal. OSSEOUS STRUCTURES: No significant abnormalities. VISUALIZED UPPER ABDOMEN: Normal. OTHER FINDINGS: None. IMPRESSION: Tracheostomy tube. Left apical pleural thickening with upper lobe granulomatous changes. Patchy right basilar airspace opacity. Left costophrenic angle excluded from the study.
--- NOTE | 2015-10-06 13:56 | CP.PCM.PN ---
<Judith Baires H - Last Filed: 10/06/15 13:52> Subjective - Subjective Subjective: PGY1/Dr. Demetrice Ying's service Medicine Note: Patient seen and examined at bedside. No acute changes. Patient unresponsive to verbal and painful stimuli. Review of Systems - Review of Systems Systems not reviewed;Unavailable: Altered Mental Status Objective - Vital Signs/Intake and Output Vital Signs (last 24 hours): Vital Signs - 24 hr 10/05/15 10/05/15 10/05/15 14:20 14:27 20:00 Temperature 98.1 F Pulse Rate 94 H 95 H Respiratory 20 Rate Blood Pressure 130/70 122/84 O2 Sat by Pulse 95 Oximetry 10/05/15 10/06/15 10/06/15 22:18 05:46 08:59 Temperature 98.3 F 98.7 F Pulse Rate 95 H 80 80 Respiratory 20 14 Rate Blood Pressure 130/87 146/87 O2 Sat by Pulse 100 99 Oximetry Intake and Output (last 12 hours): Intake & Output 10/05/15 10/06/15 10/06/15 18:59 06:59 18:59 Intake Total 1200 1000 Output Total 400 1750 Balance 800 -750 Intake: Tube Feeding 800 700 Other 400 300 Output: Urine 400 1750 Urethral (Yoo) 400 1750 Other: # Bowel Movements 1 0 - Medications Medications: Current Medications Aspirin (Aspirin) 325 mg PO DAILY [facility] Last Admin: 10/06/15 09:25 Dose: 325 mg Clopidogrel Bisulfate (Plavix) 75 mg PO DAILY [facility] Last Admin: 10/06/15 09:26 Dose: 75 mg Lisinopril (Zestril) 5 mg PO DAILY [facility] Last Admin: 10/06/15 09:26 Dose: 5 mg Nystatin (Nystop Topical Powder) 1 applic TOP BID [facility] Last Admin: 10/06/15 09:26 Dose: 1 applic Petrolatum (Desitin Original) 0 gm TOP BID [facility] Last Admin: 10/06/15 09:26 Dose: 1 applic Phenytoin (Dilantin) 100 mg PEG TID [facility] Last Admin: 10/06/15 09:25 Dose: 100 mg Polyethylene Glycol (Miralax) 17 gm PEG BID [facility] Last Admin: 08/21/15 11:26 Dose: Not Given - Constitutional Appears: Well, No Acute Distress - Head Exam Head Exam: NORMAL INSPECTION - Eye Exam Eye Exam: EOMI - ENT Exam ENT Exam: Mucous Membranes Moist - Respiratory Exam Respiratory Exam: Clear to PA & Lateral, NORMAL BREATHING PATTERN, UNREMARKABLE. absent: Rales - Cardiovascular Exam Cardiovascular Exam: REGULAR RHYTHM, +S1, +S2 - GI/Abdominal Exam GI & Abdominal Exam: Normal Bowel Sounds, Soft. absent: Distended, Firm, Tenderness - Extremities Exam Extremities exam: normal capillary refill. absent: pedal edema Additional comments: b/l hand edema - Neurological Exam Neurological exam: Altered - Skin Skin Exam: Dry, Normal Color Assessment/Plan (1) Anoxic encephalopathy Current Visit: Yes Status: Acute Comment: 10/06: breathing on vent. no changes 10/05: no acute mental status change. breathing on vent 10/04: breathing on vent 10/03: on mechanical ventilation, RR14 10/02: breathing on vent 10/01: breathing with mechanical ventilation RR at 22 bpm 09/29: mechanical ventilation 09/28: breathing on vent 09/27: mechanical ventilation 09/26: mechanical ventilation, breathing at 14 bpm 09/25: On mechanical ventilation 09/24: Breathing on vent. No acute resp distress. 09/23: Breathing on vent. no respiratory distress. NAD. 09/22: breathing on vent. Heel support boots on for foot drop prevention. no respiratory distress. 09/21: continue on vent. Heel support boots on for foot drop prevention. 09/15: Pt awake, on vent, no change in mental status 09/14: patient on SIMV. No acute distress. 09/11: [id number] dependent 09/10: Pt. [id number] dependent. No change in mental status. 09/09: Patient awake. No acute changes. PEG feeds 10pm-8am. 09/08: Patient asleep and not responsive to verbal stimuli. NAD. Will continue to monitor. 09/07: Patient asleep, unable to arouse. No acute changes in condition. 09/06: Pt is awake, but only responsive to painful stimuli. Will continue to monitor 09/05: status unchanged, monitor 09/04: cont to monitor, pt unresponsive to verbal commands 09/03: No interval change, cont to monitor 09/02: Continue to monitor. 09/01: Continue to monitor, unchanged status. 08/31: status unchanged, will continue to monitor 08/30: awake and alert, eyes open, 08/29:Pt is more alert, able to open eyes; however, can not respond to verbal commands. will continue to monitor 08/28: Pt more alert today, continues to be unresponsive to verbal stimuli 08/27 No interval change in pt's condition, will continue to monitor 08/26 Patient's status remains the same 08/25 No improvement or change in mental status. Pt not responsive to verbal commands 08/24 Pt not responsive to verbal stimuli, only painful, unable to follow commands, pt continues to have swelling, minimal improvement, will continue to monitor, continue with dietary recommendations 08/22 Spontaneous movement, eyes open. given one dose of Lasix for increased swelling in upper extremities. GT bolus adjusted to dietary recommendations. 08/21 Spontaneous movement, opened eyes during examination. Per wound care nurse Sabrina, pt is having skin breakdown due to excessive diarrhea. Recommended nystatin powder and sensicare cream to be applied on affected area. Pt's laxatives were removed. Gastric tube feeding will be made into 4 boluses, at 8am , 12pm, 4pm, 8 pm, per dietary recommendations. C diff cultures ordered. (2) Transaminitis Current Visit: Yes Status: Acute Comment: F/u CMP on Mondays and labs 10/04: AST 54, ALT 109, ALP 11, tbili 0.2 improving D/C fluids 10/01: tbili 0.3, AST 48, ALT 128, ALP 112 decreasing 09/27: AST 87, ALT 227, ALP 117, tbili 0.4 Dilantin level 10.4 started D5-1/2NS @ 50cc/hr 09/24: AST 140, ALT 209, alk phos 100. Increasing LFTs. 09/20: AST 49 , ALT 83 and Alk phos 97. Stable. 09/18: AST 42 , ALT 95 and Alk phos 117. Stable. 09/17: AST 50, [id number] and Alk phos 112. Stable. 09/14: AST 51, ALT 107 and AlK phos 118. Stable. 09/12: AST 49, ALT 99 and AlK phos 115. Improved. Recheck Q4days. Hep panel negative Continue to monitor LFTs (3) Respiratory failure Current Visit: Yes Status: Acute Comment: 10/06: no rhonchi or rales auscultated. lasix 40mg IVP once given yesterday. CXR - patchy right basilar airspace opacity with granulomatous changes in the left upper lobe and pleural thickening 10/05: rhonchi auscultated. considering CXR 10/04: fluids were added to decrease LFTs 09/27. D/C fluids today Patient is vent dependent. Dr. Salgado (pul) on case-help appreciated Continue patient on trach SIMV. Patient is vent dependent. Unable to wean at this time. Monitor (4) CAD (coronary artery disease) Current Visit: Yes Status: Acute Comment: Continue Lisinopril 5mg PO daily Continue ASA 325mg PO daily Continue Plavix 75mg PO daily (5) STEMI (ST elevation myocardial infarction) Current Visit: Yes Status: Acute Comment: cardiac stents on 06/13/15. Continue Lisinopril 5mg PO daily Continue Plavix 75mg PO daily Continue ASA 325mg PO daily (6) Seizures Current Visit: Yes Status: Acute Comment: 10/06: no seizure activity noted 10/05: no seizure activity 10/04: no seizure activity observed 10/03: no seizure activity observed 10/02: continue current amangement 10/01: no seixure activity observed. continue dilantin 09/29: continue current management 09/27: no seizure activity observed 09/26: continue current management 09/25: No seizure activity observed dilantin level 10.4 09/24: No seizure activity observed. 09/23: No seizure activity reported or noted 09/22: Continue current management 09/21: No seizure activity observed. Continue to monitor. 09/09:Continue current management. 09/01: dilantin level 5.7, continue current management. 08/30--> repeat Dilantin level in am, cont meds, SZ precaution Continue dilantin 100mg via PEG TID Continue to monitor for seizure activity (7) Prophylactic measure Current Visit: Yes Status: Acute Comment: Plavix 75 mg PO daily [facility] <Donnell Ying M - Last Filed: 10/06/15 17:03> Objective - Vital Signs/Intake and Output Vital Signs (last 24 hours): Vital Signs - 24 hr 10/05/15 10/05/15 10/06/15 20:00 22:18 05:46 Temperature 98.3 F 98.7 F Pulse Rate 95 H 95 H 80 Respiratory 20 14 Rate Blood Pressure 130/87 146/87 O2 Sat by Pulse 100 99 Oximetry 10/06/15 10/06/15 08:59 14:06 Temperature 98.4 F Pulse Rate 80 81 Respiratory 20 Rate Blood Pressure 150/80 O2 Sat by Pulse 98 Oximetry Intake and Output (last 12 hours): Intake & Output 10/05/15 10/06/15 10/06/15 18:59 06:59 18:59 Intake Total 1200 1000 Output Total 400 1750 Balance 800 -750 Intake: Tube Feeding 800 700 Other 400 300 Output: Urine 400 1750 Urethral (Yoo) 400 1750 Other: # Bowel Movements 1 0 - Medications Medications: Current Medications Aspirin (Aspirin) 325 mg PO DAILY [facility] Last Admin: 10/06/15 09:25 Dose: 325 mg Clopidogrel Bisulfate (Plavix) 75 mg PO DAILY [facility] Last Admin: 10/06/15 09:26 Dose: 75 mg Lisinopril (Zestril) 5 mg PO DAILY [facility] Last Admin: 10/06/15 09:26 Dose: 5 mg Nystatin (Nystop Topical Powder) 1 applic TOP BID [facility] Last Admin: 10/06/15 17:02 Dose: 1 applic Petrolatum (Desitin Original) 0 gm TOP BID [facility] Last Admin: 10/06/15 17:02 Dose: 1 applic Phenytoin (Dilantin) 100 mg PEG TID [facility] Last Admin: 10/06/15 17:01 Dose: 100 mg Polyethylene Glycol (Miralax) 17 gm PEG BID [facility] Last Admin: 08/21/15 11:26 Dose: Not Given Attending/Attestation - Attestation I have personally seen and examined this patient.: Yes I have fully participated in the care of the patient.: Yes I have reviewed all pertinent clinical information: Yes Notes (Text): 10/06/15 17:03 Patient seen and examined at bedside with the resident. No change in clinical condition. Continue current management.
--- NOTE | 2015-10-07 02:14 | CP.PCM.PN ---
<RileyJoel H - Last Filed: 10/07/15 08:25> Subjective - Subjective Subjective: [employer] Super[employer] Note: Patient examined in room. Patient has eye movement. Unable to obtain history from patient. Review of Systems - Review of Systems Systems not reviewed;Unavailable: Intubated Objective - Vital Signs/Intake and Output Vital Signs (last 24 hours): Vital Signs - 24 hr 10/06/15 10/06/15 10/06/15 05:46 08:59 14:06 Temperature 98.7 F 98.4 F Pulse Rate 80 80 81 Respiratory 14 20 Rate Blood Pressure 146/87 150/80 O2 Sat by Pulse 99 98 Oximetry 10/06/15 21:21 Temperature 99.5 F Pulse Rate 90 Respiratory 21 Rate Blood Pressure 144/91 H O2 Sat by Pulse 100 Oximetry Intake and Output (last 12 hours): Intake & Output 10/06/15 10/06/15 10/07/15 06:59 18:59 06:59 Intake Total 1000 1150 Output Total 1750 1000 2000 Balance -750 150 -2000 Intake: Tube Feeding 700 750 Other 300 400 Output: Urine 1750 1000 2000 Urethral (Yoo) 1750 1000 2000 Other: # Bowel Movements 0 1 1 - Medications Medications: Current Medications Aspirin (Aspirin) 325 mg PO DAILY [facility] Last Admin: 10/06/15 09:25 Dose: 325 mg Clopidogrel Bisulfate (Plavix) 75 mg PO DAILY [facility] Last Admin: 10/06/15 09:26 Dose: 75 mg Lisinopril (Zestril) 5 mg PO DAILY [facility] Last Admin: 10/06/15 09:26 Dose: 5 mg Nystatin (Nystop Topical Powder) 1 applic TOP BID [facility] Last Admin: 10/06/15 17:02 Dose: 1 applic Petrolatum (Desitin Original) 0 gm TOP BID [facility] Last Admin: 10/06/15 17:02 Dose: 1 applic Phenytoin (Dilantin) 100 mg PEG TID [facility] Last Admin: 10/06/15 17:01 Dose: 100 mg Polyethylene Glycol (Miralax) 17 gm PEG BID [facility] Last Admin: 08/21/15 11:26 Dose: Not Given - Constitutional Appears: Cachectic - Eye Exam Eye Exam: PERRL - Respiratory Exam Respiratory Exam: Clear to PA & Lateral, NORMAL BREATHING PATTERN - Cardiovascular Exam Cardiovascular Exam: REGULAR RHYTHM, +S1, +S2 Assessment/Plan (1) Anoxic encephalopathy Current Visit: Yes Status: Acute Comment: On breathing vent, no changes. (2) CAD (coronary artery disease) Current Visit: Yes Status: Acute Comment: Continue Lisinopril 5mg PO daily Continue ASA 325mg PO daily Continue Plavix 75mg PO daily (3) STEMI (ST elevation myocardial infarction) Current Visit: Yes Status: Acute Comment: cardiac stents on 06/13/15. Continue Lisinopril 5mg PO daily Continue Plavix 75mg PO daily Continue ASA 325mg PO daily (4) Seizures Current Visit: Yes Status: Acute Comment: 10/06: no seizure activity noted 10/05: no seizure activity 10/04: no seizure activity observed 10/03: no seizure activity observed 10/02: continue current amangement 10/01: no seixure activity observed. continue dilantin 09/29: continue current management 09/27: no seizure activity observed 09/26: continue current management 09/25: No seizure activity observed dilantin level 10.4 09/24: No seizure activity observed. 09/23: No seizure activity reported or noted 09/22: Continue current management 09/21: No seizure activity observed. Continue to monitor. 09/09:Continue current management. 09/01: dilantin level 5.7, continue current management. 08/30--> repeat Dilantin level in am, cont meds, SZ precaution Continue dilantin 100mg via PEG TID Continue to monitor for seizure activity (5) Prophylactic measure Current Visit: Yes Status: Acute Comment: Plavix 75 mg PO daily [facility] <Donnell Ying - Last Filed: 10/07/15 15:34> Objective - Vital Signs/Intake and Output Vital Signs (last 24 hours): Vital Signs - 24 hr 10/06/15 10/07/15 10/07/15 21:21 05:23 08:09 Temperature 99.5 F 98.7 F Pulse Rate 90 96 H 96 H Respiratory 21 20 Rate Blood Pressure 144/91 H 125/73 O2 Sat by Pulse 100 100 Oximetry 10/07/15 14:00 Temperature 98.7 F Pulse Rate 97 H Respiratory 16 Rate Blood Pressure 127/80 O2 Sat by Pulse 100 Oximetry Intake and Output (last 12 hours): Intake & Output 10/06/15 10/07/15 10/07/15 18:59 06:59 18:59 Intake Total 1150 Output Total 1000 2300 Balance 150 -2300 Intake: Tube Feeding 750 Other 400 Output: Urine 1000 2300 Urethral (Yoo) 1000 2300 Other: # Bowel Movements 1 1 - Medications Medications: Current Medications Aspirin (Aspirin) 325 mg PO DAILY [facility] Last Admin: 10/07/15 09:18 Dose: 325 mg Clopidogrel Bisulfate (Plavix) 75 mg PO DAILY [facility] Last Admin: 10/07/15 09:18 Dose: 75 mg Lisinopril (Zestril) 5 mg PO DAILY [facility] Last Admin: 10/07/15 09:18 Dose: 5 mg Nystatin (Nystop Topical Powder) 1 applic TOP BID [facility] Last Admin: 10/07/15 09:18 Dose: 1 applic Petrolatum (Desitin Original) 0 gm TOP BID [facility] Last Admin: 10/07/15 09:18 Dose: 1 applic Phenytoin (Dilantin) 100 mg PEG TID [facility] Last Admin: 10/07/15 13:08 Dose: 100 mg Polyethylene Glycol (Miralax) 17 gm PEG BID [facility] Last Admin: 08/21/15 11:26 Dose: Not Given Attending/Attestation - Attestation I have personally seen and examined this patient.: Yes I have fully participated in the care of the patient.: Yes I have reviewed all pertinent clinical information: Yes Notes (Text): 10/07/15 15:33 Patient seen and examined with the resident at bedside. I agree with the above history and physical and assessment/plan by the resident. Continue current management.
[2015-10-07] MEDS: Phenytoin 100 mg/4 ml Oral Susp UD PEG SCH ×3 (09:17→17:20)
[2015-10-07] MEDS: Zinc Oxide Topical 30 gm Tube TOP SCH ×2 (09:18→17:20)
[2015-10-08] MEDS: Phenytoin 100 mg/4 ml Oral Susp UD PEG SCH ×3 (09:20→17:11)
[2015-10-08] MEDS: Zinc Oxide Topical 30 gm Tube TOP SCH ×2 (09:20→17:12)
--- NOTE | 2015-10-08 11:33 | CP.PCM.PN ---
<Lauri Araya - Last Filed: 10/08/15 12:12> Subjective - Subjective Subjective: PGY-1 note - Dr. Rodrigues's service Pt was seen and examined at bedside. Pt is awake, eyes open, does not respond to verbal or physical stimuli. Clinical status unchanged. No events overnight. Review of Systems - Review of Systems Systems not reviewed;Unavailable: Acuity of Condition (anoxic brain injury) Objective - Vital Signs/Intake and Output Vital Signs (last 24 hours): Vital Signs - 24 hr 10/07/15 10/07/15 10/08/15 14:00 21:53 06:01 Temperature 98.7 F 98.6 F 98.1 F Pulse Rate 97 H 78 96 H Respiratory 16 16 16 Rate Blood Pressure 127/80 115/75 130/72 O2 Sat by Pulse 100 99 97 Oximetry 10/08/15 08:49 Temperature Pulse Rate 96 H Respiratory Rate Blood Pressure O2 Sat by Pulse Oximetry Intake and Output (last 12 hours): Intake & Output 10/07/15 10/08/15 10/08/15 18:59 06:59 18:59 Intake Total 1150 950 Output Total 500 850 Balance 650 100 Intake: Tube Feeding 750 850 Other 400 100 Output: Gastric Amount 0 Stomach 0 Urine 500 850 Urethral (Yoo) 500 850 Other: # Bowel Movements 1 1 - Medications Medications: Current Medications Aspirin (Aspirin) 325 mg PO DAILY [facility] Last Admin: 10/08/15 09:20 Dose: 325 mg Clopidogrel Bisulfate (Plavix) 75 mg PO DAILY [facility] Last Admin: 10/08/15 09:20 Dose: 75 mg Lisinopril (Zestril) 5 mg PO DAILY [facility] Last Admin: 10/08/15 09:20 Dose: 5 mg Nystatin (Nystop Topical Powder) 1 applic TOP BID [facility] Last Admin: 10/08/15 09:20 Dose: 1 applic Petrolatum (Desitin Original) 0 gm TOP BID [facility] Last Admin: 10/08/15 09:20 Dose: 1 applic Phenytoin (Dilantin) 100 mg PEG TID [facility] Last Admin: 10/08/15 09:20 Dose: 100 mg Polyethylene Glycol (Miralax) 17 gm PEG BID [facility] Last Admin: 08/21/15 11:26 Dose: Not Given - Constitutional Appears: Non-toxic, No Acute Distress - Head Exam Head Exam: ATRAUMATIC, NORMAL INSPECTION, NORMOCEPHALIC - ENT Exam ENT Exam: Mucous Membranes Moist Additional comments: trach collar in place - Respiratory Exam Respiratory Exam: Rhonchi, NORMAL BREATHING PATTERN. absent: Rales, Wheezes - Cardiovascular Exam Cardiovascular Exam: REGULAR RHYTHM, +S1, +S2 - GI/Abdominal Exam GI & Abdominal Exam: Normal Bowel Sounds, Soft. absent: Distended, Firm, Tenderness - Neurological Exam Neurological exam: Altered. absent: Alert, Oriented x3 - Skin Skin Exam: Dry, Intact, Normal Color, Warm Assessment/Plan (1) Anoxic encephalopathy Current Visit: Yes Status: Acute Comment: On breathing vent, no changes. (2) Cardiac arrest Current Visit: Yes Status: Acute Comment: s/p V-Tach arrest Continue Plavix 75mg PO daily Continue ASA 325mg PO daily Continue Lisinopril 5mg PO daily (3) Chest congestion Current Visit: Yes Status: Acute Comment: 09/29: lungs clear 09/25: Lungs clear 09/24: Lungs clear to auscultation 09/23: Lungs CTA 09/22: lungs CTA bilaterally 09/21: Lungs clear bilaterally. 09/15: No change 09/14: Clear to auscultation. No acute distress. 09/12: CXR on 09/12 shows no changes. 09/09: No acute distress. Afebrile. 09/08: Not using accesory muscles. Afebrile. Sputum culture (07/28/15) with Pseudomonas aeruginosa s/p treatment Dr. Armstrong on case-following. (4) Edema of upper extremity Current Visit: Yes Status: Acute Comment: Continue warm compresses Venous doppler (07/19) showed superficial thrombosis of right cephalic vein. ( see official report). Monitor (5) Respiratory failure Current Visit: Yes Status: Acute Comment: 10/06: no rhonchi or rales auscultated. lasix 40mg IVP once given yesterday. CXR - patchy right basilar airspace opacity with granulomatous changes in the left upper lobe and pleural thickening 10/05: rhonchi auscultated. considering CXR 10/04: fluids were added to decrease LFTs 09/27. D/C fluids today Patient is vent dependent. Dr. Salgado (pulm) on case-help appreciated Continue patient on trach SIMV. Patient is vent dependent. Unable to wean at this time. Monitor (6) STEMI (ST elevation myocardial infarction) Current Visit: Yes Status: Acute Comment: cardiac stents on 06/13/15. Continue Lisinopril 5mg PO daily Continue Plavix 75mg PO daily Continue ASA 325mg PO daily (7) Seizures Current Visit: Yes Status: Acute Comment: 10/06: no seizure activity noted 10/05: no seizure activity 10/04: no seizure activity observed 10/03: no seizure activity observed 10/02: continue current amangement 10/01: no seixure activity observed. continue dilantin 09/29: continue current management 09/27: no seizure activity observed 09/26: continue current management 09/25: No seizure activity observed dilantin level 10.4 09/24: No seizure activity observed. 09/23: No seizure activity reported or noted 09/22: Continue current management 09/21: No seizure activity observed. Continue to monitor. 09/09:Continue current management. 09/01: dilantin level 5.7, continue current management. 08/30--> repeat Dilantin level in am, cont meds, SZ precaution Continue dilantin 100mg via PEG TID Continue to monitor for seizure activity (8) Thrombophlebitis of superficial veins of upper extremities Current Visit: Yes Status: Acute Comment: Venous doppler (07/19) prelim report - thrombosis of right cephalic vein (superficial) Shows Abnormality Lovenox 40mg SC daily Warm compresses to area 15 minutes, 3x a day f/u final venous doppler report (9) Transaminitis Current Visit: Yes Status: Acute Comment: F/u CMP on Mondays and labs 10/04: AST 54, ALT 109, ALP 11, tbili 0.2 improving D/C fluids 10/01: tbili 0.3, AST 48, ALT 128, ALP 112 decreasing 09/27: AST 87, ALT 227, ALP 117, tbili 0.4 Dilantin level 10.4 started D5-1/2NS @ 50cc/hr 09/24: AST 140, ALT 209, alk phos 100. Increasing LFTs. 09/20: AST 49 , ALT 83 and Alk phos 97. Stable. 09/18: AST 42 , ALT 95 and Alk phos 117. Stable. 09/17: AST 50, [id number] and Alk phos 112. Stable. 09/14: AST 51, ALT 107 and AlK phos 118. Stable. 09/12: AST 49, ALT 99 and AlK phos 115. Improved. Recheck Q4days. Hep panel negative Continue to monitor LFTs (10) UTI (lower urinary tract infection) Current Visit: Yes Status: Resolved Comment: 09/26: C diff from 09/24 also negative 09/24: Stopped Zosyn on day 12 per phone conversation with Dr. Armstrong; follow up repeat C. Diff 09/23: Flagyl discontinued 09/17: urine Cx negative 09/11: Urine Cx pseudomonas - started zosyn 3.375 gm IVPB Q8H (day #12) Afebrile overnight. WBC on :13.4 ID on case- Dr. Armstrong - help very much appreciated (11) Bed sore Current Visit: Yes Status: Acute Comment: 08/09- stage one ulcer, healed, per nursing. continue repositioning of patient q2H dolphin mattress (12) Prophylactic measure Current Visit: Yes Status: Acute Comment: Plavix 75 mg PO daily SCDs <Rashel Rodrigues - Last Filed: 10/08/15 22:12> Objective - Vital Signs/Intake and Output Vital Signs (last 24 hours): Vital Signs - 24 hr 10/07/15 10/08/15 10/08/15 21:53 06:01 08:49 Temperature 98.6 F 98.1 F Pulse Rate 78 96 H 96 H Respiratory 16 16 Rate Blood Pressure 115/75 130/72 O2 Sat by Pulse 99 97 Oximetry 10/08/15 14:34 Temperature 97.6 F Pulse Rate 94 H Respiratory 19 Rate Blood Pressure 130/89 O2 Sat by Pulse 100 Oximetry Intake and Output (last 12 hours): Intake & Output 10/07/15 10/08/15 10/08/15 18:59 06:59 18:59 Intake Total 4381 401 1723 Output Total 500 850 500 Balance 650 100 700 Intake: Tube Feeding 750 850 800 Other 400 100 400 Output: Gastric Amount 0 Stomach 0 Urine 500 850 500 Urethral (Yoo) 500 850 500 Other: # Bowel Movements 1 1 - Medications Medications: Current Medications Aspirin (Aspirin) 325 mg PO DAILY [facility] Last Admin: 10/08/15 09:20 Dose: 325 mg Clopidogrel Bisulfate (Plavix) 75 mg PO DAILY [facility] Last Admin: 10/08/15 09:20 Dose: 75 mg Lisinopril (Zestril) 5 mg PO DAILY [facility] Last Admin: 10/08/15 09:20 Dose: 5 mg Nystatin (Nystop Topical Powder) 1 applic TOP BID [facility] Last Admin: 10/08/15 17:11 Dose: 1 applic Petrolatum (Desitin Original) 0 gm TOP BID [facility] Last Admin: 10/08/15 17:12 Dose: 1 applic Phenytoin (Dilantin) 100 mg PEG TID [facility] Last Admin: 10/08/15 17:11 Dose: 100 mg Polyethylene Glycol (Miralax) 17 gm PEG BID [facility] Last Admin: 08/21/15 11:26 Dose: Not Given - Labs Labs (last 24 hours): Laboratory Results - last 24 hr 10/08/15 10/08/15 11:51 14:01 WBC 14.8 H D RBC 4.03 L Hgb 12.5 Hct 38.0 MCV 94.2 H MCH 31.0 MCHC 32.9 L RDW 14.4 Plt Count 294 MPV 8.6 Sodium 137 Potassium 4.1 Chloride 101 Carbon Dioxide 29 Anion Gap 11 BUN 26 H Creatinine 0.4 L Est GFR ( Amer) > 60 Est GFR (Non-Af Amer) > 60 Random Glucose 105 Calcium 8.8 Phosphorus 3.6 Magnesium 2.1 Total Bilirubin 0.2 AST 36 ALT 80 H D Alkaline Phosphatase 108 Total Protein 7.0 Albumin 3.3 L Globulin 3.7 Albumin/Globulin Ratio 0.9 L Assessment/Plan (1) Anoxic encephalopathy Current Visit: Yes Status: Acute Comment: On breathing vent, no changes. (2) STEMI (ST elevation myocardial infarction) Current Visit: Yes Status: Acute Comment: cardiac stents on 06/13/15. Continue Lisinopril 5mg PO daily Continue Plavix 75mg PO daily Continue ASA 325mg PO daily (3) Respiratory failure Current Visit: Yes Status: Acute Comment: 10/06: no rhonchi or rales auscultated. lasix 40mg IVP once given yesterday. CXR - patchy right basilar airspace opacity with granulomatous changes in the left upper lobe and pleural thickening 10/05: rhonchi auscultated. considering CXR 10/04: fluids were added to decrease LFTs 09/27. D/C fluids today Patient is vent dependent. Dr. Salgado ([facility]) on case-help appreciated Continue patient on trach SIMV. Patient is vent dependent. Unable to wean at this time. Monitor (4) Seizures Current Visit: Yes Status: Acute Comment: 10/06: no seizure activity noted 10/05: no seizure activity 10/04: no seizure activity observed 10/03: no seizure activity observed 10/02: continue current amangement 10/01: no seixure activity observed. continue dilantin 09/29: continue current management 09/27: no seizure activity observed 09/26: continue current management 09/25: No seizure activity observed dilantin level 10.4 09/24: No seizure activity observed. 09/23: No seizure activity reported or noted 09/22: Continue current management 09/21: No seizure activity observed. Continue to monitor. 09/09:Continue current management. 09/01: dilantin level 5.7, continue current management. 08/30--> repeat Dilantin level in am, cont meds, SZ precaution Continue dilantin 100mg via PEG TID Continue to monitor for seizure activity (5) Prophylactic measure Current Visit: Yes Status: Acute Comment: Plavix 75 mg PO daily SCDs Attending/Attestation - Attestation I have personally seen and examined this patient.: Yes I have fully participated in the care of the patient.: Yes I have reviewed all pertinent clinical information: Yes Notes (Text): 10/08/15 18:29 Patient seen and examined during round with residents cont vent mx as per Pulm, cont supportive mx fu ;labs
[2015-10-08 12:10] LABS: ALBUMIN 3.3 g/dL (3.5-5.0)
[2015-10-08 12:12] LABS: GFR NON-AFRICAN AMERICAN > 60
[2015-10-08 12:13] LABS: ALB/GLOB RATIO 0.9 (1.0-2.1); ALT/SGPT 80 U/L (21-72); AST/SGOT 36 U/L (17-59); BLOOD UREA NITROGEN 26 mg/dL (9-20); CALCIUM 8.8 mg/dL (8.4-10.2)
[2015-10-08 14:17] LABS: MEAN PLATELET VOLUME 8.6 fL (7.2-11.7); RED CELL DISTRIBUTION WIDTH 14.4 % (11.5-14.5)
[2015-10-08 14:29] LABS: HEMOGLOBIN 12.5 g/dL (12.0-18.0); MEAN CELL VOLUME 94.2 fL (80.0-94.0); MEAN CORPUSCULAR HGB CONC 32.9 g/dL (33.0-37.0); RBC 4.03 Mil/uL (4.40-5.90)
[2015-10-08 14:34] LABS: WHITE BLOOD COUNT 14.8 K/uL (4.8-10.8)
[2015-10-09] MEDS: Phenytoin 100 mg/4 ml Oral Susp UD PEG SCH ×3 (09:17→17:04)
[2015-10-09] MEDS: Zinc Oxide Topical 30 gm Tube TOP SCH ×2 (09:18→17:04)
--- NOTE | 2015-10-09 10:54 | CP.PCM.PN ---
<Yesenia Mayer - Last Filed: 10/09/15 10:49> Subjective - Subjective Subjective: PGY-1 note - Dr. Rodrigues's service Pt was seen and examined at bedside. Pt is awake, but non verbal. He does not respond to physical stimuli. No events overnight as per nursing. Patient has likely stage 3 sacral decubitus ulcer, possibly stage 4. Plastic surgery [address] Agarwal was consulted. Review of Systems - Review of Systems Systems not reviewed;Unavailable: Altered Mental Status Objective - Vital Signs/Intake and Output Vital Signs (last 24 hours): Vital Signs - 24 hr 10/08/15 10/08/15 10/09/15 14:34 21:51 06:03 Temperature 97.6 F 99.2 F 98.1 F Pulse Rate 94 H 96 H 87 Respiratory 19 18 20 Rate Blood Pressure 130/89 128/82 123/78 O2 Sat by Pulse 100 96 99 Oximetry 10/09/15 08:49 Temperature Pulse Rate 87 Respiratory Rate Blood Pressure O2 Sat by Pulse Oximetry Intake and Output (last 12 hours): Intake & Output 10/08/15 10/09/15 10/09/15 18:59 06:59 18:59 Intake Total 1200 950 Output Total 500 1000 Balance 700 -50 Intake: Tube Feeding 800 850 Other 400 100 Output: Urine 500 1000 Urethral (Yoo) 500 1000 Other: # Bowel Movements 1 - Medications Medications: Current Medications Aspirin (Aspirin) 325 mg PO DAILY [facility] Last Admin: 10/09/15 09:17 Dose: 325 mg Clopidogrel Bisulfate (Plavix) 75 mg PO DAILY [facility] Last Admin: 10/09/15 09:17 Dose: 75 mg Lisinopril (Zestril) 5 mg PO DAILY [facility] Last Admin: 10/09/15 09:17 Dose: 5 mg Nystatin (Nystop Topical Powder) 1 applic TOP BID [facility] Last Admin: 10/09/15 09:18 Dose: 1 applic Petrolatum (Desitin Original) 0 gm TOP BID [facility] Last Admin: 10/09/15 09:18 Dose: 1 applic Phenytoin (Dilantin) 100 mg PEG TID [facility] Last Admin: 10/09/15 09:17 Dose: 100 mg Polyethylene Glycol (Miralax) 17 gm PEG BID [facility] Last Admin: 08/21/15 11:26 Dose: Not Given - Labs Labs (last 24 hours): Laboratory Results - last 24 hr 10/08/15 10/08/15 11:51 14:01 WBC 14.8 H D RBC 4.03 L Hgb 12.5 Hct 38.0 MCV 94.2 H MCH 31.0 MCHC 32.9 L RDW 14.4 Plt Count 294 MPV 8.6 Sodium 137 Potassium 4.1 Chloride 101 Carbon Dioxide 29 Anion Gap 11 BUN 26 H Creatinine 0.4 L Est GFR ( Amer) > 60 Est GFR (Non-Af Amer) > 60 Random Glucose 105 Calcium 8.8 Phosphorus 3.6 Magnesium 2.1 Total Bilirubin 0.2 AST 36 ALT 80 H D Alkaline Phosphatase 108 Total Protein 7.0 Albumin 3.3 L Globulin 3.7 Albumin/Globulin Ratio 0.9 L - Constitutional Appears: No Acute Distress - Head Exam Head Exam: NORMAL INSPECTION - ENT Exam ENT Exam: Mucous Membranes Dry - Neck Exam Neck exam: absent: Lymphadenopathy - Respiratory Exam Respiratory Exam: Clear to PA & Lateral. absent: Rales, Rhonchi, Wheezes - Cardiovascular Exam Cardiovascular Exam: REGULAR RHYTHM - GI/Abdominal Exam GI & Abdominal Exam: Normal Bowel Sounds, Soft. absent: Organomegaly - Extremities Exam Extremities exam: pedal pulses present. absent: pedal edema - Neurological Exam Neurological exam: Alert. absent: Oriented x3 - Psychiatric Exam Psychiatric exam: Normal Affect, Normal Mood - Skin Skin Exam: Normal Color, Warm Assessment/Plan (1) Bed sore Current Visit: Yes Status: Acute Comment: 10/09: sacral ulcer, stage [address] Dr. Panchal consulted, f/u recommendations 08/09- stage one ulcer, healed, per nursing. continue repositioning of patient q2H dolphin mattress (2) Chest congestion Current Visit: Yes Status: Acute Comment: 09/29: lungs clear 09/25: Lungs clear 09/24: Lungs clear to auscultation 09/23: Lungs CTA 09/22: lungs CTA bilaterally 09/21: Lungs clear bilaterally. 09/15: No change 09/14: Clear to auscultation. No acute distress. 09/12: CXR on 09/12 shows no changes. 09/09: No acute distress. Afebrile. 09/08: Not using accesory muscles. Afebrile. Sputum culture (07/28/15) with Pseudomonas aeruginosa s/p treatment Dr. Armstrong on case-following. (3) Thrombophlebitis of superficial veins of upper extremities Current Visit: Yes Status: Acute Comment: Venous doppler (07/19) prelim report - thrombosis of right cephalic vein (superficial) Shows Abnormality Lovenox 40mg SC daily Warm compresses to area 15 minutes, 3x a day f/u final venous doppler report (4) Edema of upper extremity Current Visit: Yes Status: Acute Comment: Continue warm compresses Venous doppler (07/19) showed superficial thrombosis of right cephalic vein. ( see official report). Monitor (5) Anoxic encephalopathy Current Visit: Yes Status: Acute Comment: On breathing vent, no changes. (6) Respiratory failure Current Visit: Yes Status: Acute Comment: 10/06: no rhonchi or rales auscultated. lasix 40mg IVP once given yesterday. CXR - patchy right basilar airspace opacity with granulomatous changes in the left upper lobe and pleural thickening 10/05: rhonchi auscultated. considering CXR 10/04: fluids were added to decrease LFTs 09/27. D/C fluids today Patient is vent dependent. Dr. Salgado (pulm) on case-help appreciated Continue patient on trach SIMV. Patient is vent dependent. Unable to wean at this time. Monitor (7) Transaminitis Current Visit: Yes Status: Acute Comment: F/u CMP on Mondays and labs 10/04: AST 54, ALT 109, ALP 11, tbili 0.2 improving D/C fluids 10/01: tbili 0.3, AST 48, ALT 128, ALP 112 decreasing 09/27: AST 87, ALT 227, ALP 117, tbili 0.4 Dilantin level 10.4 started D5-1/2NS @ 50cc/hr 09/24: AST 140, ALT 209, alk phos 100. Increasing LFTs. 09/20: AST 49 , ALT 83 and Alk phos 97. Stable. 09/18: AST 42 , ALT 95 and Alk phos 117. Stable. 09/17: AST 50, [id number] and Alk phos 112. Stable. 09/14: AST 51, ALT 107 and AlK phos 118. Stable. 09/12: AST 49, ALT 99 and AlK phos 115. Improved. Recheck Q4days. Hep panel negative Continue to monitor LFTs (8) Cardiac arrest Current Visit: Yes Status: Acute Comment: s/p V-Tach arrest Continue Plavix 75mg PO daily Continue ASA 325mg PO daily Continue Lisinopril 5mg PO daily (9) STEMI (ST elevation myocardial infarction) Current Visit: Yes Status: Acute Comment: cardiac stents on 06/13/15. Continue Lisinopril 5mg PO daily Continue Plavix 75mg PO daily Continue ASA 325mg PO daily (10) Seizures Current Visit: Yes Status: Acute Comment: 10/06: no seizure activity noted 10/05: no seizure activity 10/04: no seizure activity observed 10/03: no seizure activity observed 10/02: continue current amangement 10/01: no seixure activity observed. continue dilantin 09/29: continue current management 09/27: no seizure activity observed 09/26: continue current management 09/25: No seizure activity observed dilantin level 10.4 09/24: No seizure activity observed. 09/23: No seizure activity reported or noted 09/22: Continue current management 09/21: No seizure activity observed. Continue to monitor. 09/09:Continue current management. 09/01: dilantin level 5.7, continue current management. 08/30--> repeat Dilantin level in am, cont meds, SZ precaution Continue dilantin 100mg via PEG TID Continue to monitor for seizure activity (11) Prophylactic measure Current Visit: Yes Status: Acute Comment: Plavix 75 mg PO daily SCDs <Ravi,Rashel - Last Filed: 10/09/15 18:51> Objective - Vital Signs/Intake and Output Vital Signs (last 24 hours): Vital Signs - 24 hr 10/08/15 10/09/15 10/09/15 21:51 06:03 08:49 Temperature 99.2 F 98.1 F Pulse Rate 96 H 87 87 Respiratory 18 20 Rate Blood Pressure 128/82 123/78 O2 Sat by Pulse 96 99 Oximetry 10/09/15 14:10 Temperature 99.6 F Pulse Rate 94 H Respiratory 19 Rate Blood Pressure 120/70 O2 Sat by Pulse Oximetry Intake and Output (last 12 hours): Intake & Output 10/08/15 10/09/15 10/09/15 18:59 06:59 18:59 Intake Total 0106 927 6833 Output Total 500 1000 600 Balance 700 -50 600 Intake: Tube Feeding 800 850 800 Other 400 100 400 Output: Urine 500 1000 600 Urethral (Yoo) 500 1000 600 Other: # Bowel Movements 1 2 - Medications Medications: Current Medications Aspirin (Aspirin) 325 mg PO DAILY [facility] Last Admin: 10/09/15 09:17 Dose: 325 mg Clopidogrel Bisulfate (Plavix) 75 mg PO DAILY [facility] Last Admin: 10/09/15 09:17 Dose: 75 mg Lisinopril (Zestril) 5 mg PO DAILY [facility] Last Admin: 10/09/15 09:17 Dose: 5 mg Nystatin (Nystop Topical Powder) 1 applic TOP BID [facility] Last Admin: 10/09/15 17:04 Dose: 1 applic Petrolatum (Desitin Original) 0 gm TOP BID [facility] Last Admin: 10/09/15 17:04 Dose: 1 applic Phenytoin (Dilantin) 100 mg PEG TID [facility] Last Admin: 10/09/15 17:04 Dose: 100 mg Polyethylene Glycol (Miralax) 17 gm PEG BID [facility] Last Admin: 08/21/15 11:26 Dose: Not Given Assessment/Plan (1) Anoxic encephalopathy Current Visit: Yes Status: Acute Comment: On breathing vent, no changes. (2) STEMI (ST elevation myocardial infarction) Current Visit: Yes Status: Acute Comment: cardiac stents on 06/13/15. Continue Lisinopril 5mg PO daily Continue Plavix 75mg PO daily Continue ASA 325mg PO daily (3) Respiratory failure Current Visit: Yes Status: Acute Comment: 10/06: no rhonchi or rales auscultated. lasix 40mg IVP once given yesterday. CXR - patchy right basilar airspace opacity with granulomatous changes in the left upper lobe and pleural thickening 10/05: rhonchi auscultated. considering CXR 10/04: fluids were added to decrease LFTs 09/27. D/C fluids today Patient is vent dependent. Dr. Salgado (pul) on case-help appreciated Continue patient on trach SIMV. Patient is vent dependent. Unable to wean at this time. Monitor (4) Seizures Current Visit: Yes Status: Acute Comment: 10/06: no seizure activity noted 10/05: no seizure activity 10/04: no seizure activity observed 10/03: no seizure activity observed 10/02: continue current amangement 10/01: no seixure activity observed. continue dilantin 09/29: continue current management 09/27: no seizure activity observed 09/26: continue current management 09/25: No seizure activity observed dilantin level 10.4 09/24: No seizure activity observed. 09/23: No seizure activity reported or noted 09/22: Continue current management 09/21: No seizure activity observed. Continue to monitor. 09/09:Continue current management. 09/01: dilantin level 5.7, continue current management. 08/30--> repeat Dilantin level in am, cont meds, SZ precaution Continue dilantin 100mg via PEG TID Continue to monitor for seizure activity (5) Prophylactic measure Current Visit: Yes Status: Acute Comment: Plavix 75 mg PO daily SCDs Attending/Attestation - Attestation I have personally seen and examined this patient.: Yes I have fully participated in the care of the patient.: Yes I have reviewed all pertinent clinical information: Yes Notes (Text): 10/09/15 18:50 pt seen and examined during round with residents. pt is still on vent pt has worsening sacral decubitus ulcer -- poss stage 4--> need plastic sx consult
[2015-10-10] MEDS: Zinc Oxide Topical 30 gm Tube TOP SCH ×2 (09:37→17:24)
[2015-10-10] MEDS: Phenytoin 100 mg/4 ml Oral Susp UD PEG SCH ×3 (09:37→17:24)
--- NOTE | 2015-10-10 11:04 | CP.PCM.CON ---
History of Present Illness - History of Present Illness History of Present Illness: Hospital acquires unstageable sacral (right side). Patient on vent, TF, immobile , incontinent, Positioned on side with wedge. Past Patient History - Tetanus Immunizations Tetanus Immunization: Unknown - Past Medical History & Family History Past Medical History?: Yes - Past Social History Smoking Status: Never Smoked Alcohol: None Drugs: Denies - CARDIAC Hx Cardiac Disorders: Yes (unknown condition diagnosed in [place] 15 years ago) - MUSCULOSKELETAL/RHEUMATOLOGICAL Hx Falls: Yes - PSYCHIATRIC Hx Substance Use: No - ANESTHESIA Hx Anesthesia: No Hx Anesthesia Reactions: No Hx Malignant Hyperthermia: No Has any member of the family had a problem w/ anesthesia?: No Meds Allergies/Adverse Reactions: Allergies Allergy/AdvReac Type Severity Reaction Status Date / Time No Known Allergies Allergy Unverified 06/13/15 20:57 Physical Exam - Skin Additional comments: Right side of sacrum with unstageable pressure ulcer 2cm x 2.4cm brown necrotic base periwound with signs of healing fungal rash-skin discolored Results - Vital Signs Recent Vital Signs: Last Vital Signs Temp 98.2 F 10/10/15 05:00 Pulse 100 H 10/10/15 08:48 Resp 18 10/10/15 05:00 BP 139/89 10/10/15 05:00 Pulse Ox 100 10/10/15 05:00 - Labs Result Diagrams: 10/08/15 14:01 10/08/15 11:51 Assessment/Plan - Assessment and Plan (Free Text) Assessment: Unstageable sacral pressure ulcer Resolving fungal rash Plan: [employer] to buttocks around ulcer Medi[employer] to necrotic tissue Position Q2 hours Recall when necrotic tissue is soft/loose for debridement
--- NOTE | 2015-10-10 13:26 | CP.PCM.PN ---
<Yesenia Mayer - Last Filed: 10/10/15 13:18> Subjective - Subjective Subjective: PGY-1 note - Dr. Rodrigues's service Pt was seen and examined at bedside. Pt is awake, but non verbal and not responsive to physical stimuli. No events overnight as per nursing. Patient was seen by wound care for his unstageable sacral pressure ulcer --> recommendations: SensiCare to buttocks around ulcer, MediHoney to necrotic tissue, Position Q2 hours, Recall when necrotic tissue is soft/loose for debridement Review of Systems - Review of Systems Systems not reviewed;Unavailable: Altered Mental Status Objective - Vital Signs/Intake and Output Vital Signs (last 24 hours): Vital Signs - 24 hr 10/09/15 10/09/15 10/09/15 14:10 20:00 22:09 Temperature 99.6 F 98.8 F Pulse Rate 94 H 96 H 96 H Respiratory 19 18 Rate Blood Pressure 120/70 123/83 O2 Sat by Pulse 100 Oximetry 10/10/15 10/10/15 05:00 08:48 Temperature 98.2 F Pulse Rate 100 H 100 H Respiratory 18 Rate Blood Pressure 139/89 O2 Sat by Pulse 100 Oximetry Intake and Output (last 12 hours): Intake & Output 10/09/15 10/10/15 10/10/15 18:59 06:59 18:59 Intake Total 1200 900 Output Total 600 1350 Balance 600 -450 Intake: Tube Feeding 800 700 Other 400 200 Output: Urine 600 1350 Urethral (Yoo) 600 1350 Other: # Bowel Movements 2 1 - Medications Medications: Current Medications Aspirin (Aspirin) 325 mg PO DAILY [facility] Last Admin: 10/10/15 09:37 Dose: 325 mg Clopidogrel Bisulfate (Plavix) 75 mg PO DAILY [facility] Last Admin: 10/10/15 09:37 Dose: 75 mg Lisinopril (Zestril) 5 mg PO DAILY [facility] Last Admin: 10/10/15 09:37 Dose: 5 mg Nystatin (Nystop Topical Powder) 1 applic TOP BID [facility] Last Admin: 10/10/15 09:37 Dose: 1 applic Petrolatum (Desitin Original) 0 gm TOP BID [facility] Last Admin: 10/10/15 09:37 Dose: 1 applic Phenytoin (Dilantin) 100 mg PEG TID [facility] Last Admin: 10/10/15 09:37 Dose: 100 mg Polyethylene Glycol (Miralax) 17 gm PEG BID [facility] Last Admin: 08/21/15 11:26 Dose: Not Given - Constitutional Appears: No Acute Distress - Head Exam Head Exam: NORMAL INSPECTION - ENT Exam ENT Exam: Mucous Membranes Dry - Neck Exam Neck exam: absent: Lymphadenopathy - Respiratory Exam Respiratory Exam: Clear to PA & Lateral. absent: Rales, Rhonchi, Wheezes - Cardiovascular Exam Cardiovascular Exam: REGULAR RHYTHM, +S1, +S2 - GI/Abdominal Exam GI & Abdominal Exam: Normal Bowel Sounds, Soft. absent: Organomegaly, Tenderness - Extremities Exam Extremities exam: pedal pulses present. absent: pedal edema - Neurological Exam Neurological exam: Alert. absent: Oriented x3 - Skin Skin Exam: Normal Color, Warm Assessment/Plan (1) Bed sore Current Visit: Yes Status: Acute Comment: 10/10: Wound care recommendations: SensiCare to buttocks around ulcer, MediHoney to necrotic tissue, Position Q2 hours, Recall when necrotic tissue is soft/loose for debridement 10/09: sacral ulcer, stage [address] Dr. Panchal consulted, f/u recommendations 08/09- stage one ulcer, healed, per nursing. continue repositioning of patient q2H dolphin mattress (2) Chest congestion Current Visit: Yes Status: Acute Comment: 09/29: lungs clear 09/25: Lungs clear 09/24: Lungs clear to auscultation 09/23: Lungs CTA 09/22: lungs CTA bilaterally 09/21: Lungs clear bilaterally. 09/15: No change 09/14: Clear to auscultation. No acute distress. 09/12: CXR on 09/12 shows no changes. 09/09: No acute distress. Afebrile. 09/08: Not using accesory muscles. Afebrile. Sputum culture (07/28/15) with Pseudomonas aeruginosa s/p treatment Dr. Armstrong on case-following. (3) Thrombophlebitis of superficial veins of upper extremities Current Visit: Yes Status: Acute Comment: Venous doppler (07/19) prelim report - thrombosis of right cephalic vein (superficial) Shows Abnormality Lovenox 40mg SC daily Warm compresses to area 15 minutes, 3x a day f/u final venous doppler report (4) Edema of upper extremity Current Visit: Yes Status: Acute Comment: Continue warm compresses Venous doppler (07/19) showed superficial thrombosis of right cephalic vein. ( see official report). Monitor (5) Anoxic encephalopathy Current Visit: Yes Status: Acute Comment: On breathing vent, no changes. (6) Respiratory failure Current Visit: Yes Status: Acute Comment: 10/06: no rhonchi or rales auscultated. lasix 40mg IVP once given yesterday. CXR - patchy right basilar airspace opacity with granulomatous changes in the left upper lobe and pleural thickening 10/05: rhonchi auscultated. considering CXR 10/04: fluids were added to decrease LFTs 09/27. D/C fluids today Patient is vent dependent. Dr. Salgado (pul) on case-help appreciated Continue patient on trach SIMV. Patient is vent dependent. Unable to wean at this time. Monitor (7) Transaminitis Current Visit: Yes Status: Acute Comment: F/u CMP on Mondays and labs 10/04: AST 54, ALT 109, ALP 11, tbili 0.2 improving D/C fluids 10/01: tbili 0.3, AST 48, ALT 128, ALP 112 decreasing 09/27: AST 87, ALT 227, ALP 117, tbili 0.4 Dilantin level 10.4 started D5-1/2NS @ 50cc/hr 09/24: AST 140, ALT 209, alk phos 100. Increasing LFTs. 09/20: AST 49 , ALT 83 and Alk phos 97. Stable. 09/18: AST 42 , ALT 95 and Alk phos 117. Stable. 09/17: AST 50, [id number] and Alk phos 112. Stable. 09/14: AST 51, ALT 107 and AlK phos 118. Stable. 09/12: AST 49, ALT 99 and AlK phos 115. Improved. Recheck Q4days. Hep panel negative Continue to monitor LFTs (8) Cardiac arrest Current Visit: Yes Status: Acute Comment: s/p V-Tach arrest Continue Plavix 75mg PO daily Continue ASA 325mg PO daily Continue Lisinopril 5mg PO daily (9) STEMI (ST elevation myocardial infarction) Current Visit: Yes Status: Acute Comment: cardiac stents on 06/13/15. Continue Lisinopril 5mg PO daily Continue Plavix 75mg PO daily Continue ASA 325mg PO daily (10) Seizures Current Visit: Yes Status: Acute Comment: 10/06: no seizure activity noted 10/05: no seizure activity 10/04: no seizure activity observed 10/03: no seizure activity observed 10/02: continue current amangement 10/01: no seixure activity observed. continue dilantin 09/29: continue current management 09/27: no seizure activity observed 09/26: continue current management 09/25: No seizure activity observed dilantin level 10.4 09/24: No seizure activity observed. 09/23: No seizure activity reported or noted 09/22: Continue current management 09/21: No seizure activity observed. Continue to monitor. 09/09:Continue current management. 09/01: dilantin level 5.7, continue current management. 08/30--> repeat Dilantin level in am, cont meds, SZ precaution Continue dilantin 100mg via PEG TID Continue to monitor for seizure activity (11) Prophylactic measure Current Visit: Yes Status: Acute Comment: Plavix 75 mg PO daily [facility] <Rashel Rodrigues - Last Filed: 10/10/15 15:32> Objective - Vital Signs/Intake and Output Vital Signs (last 24 hours): Vital Signs - 24 hr 10/09/15 10/09/15 10/10/15 20:00 22:09 05:00 Temperature 98.8 F 98.2 F Pulse Rate 96 H 96 H 100 H Respiratory 18 18 Rate Blood Pressure 123/83 139/89 O2 Sat by Pulse 100 100 Oximetry 10/10/15 10/10/15 08:48 13:39 Temperature 98.5 F Pulse Rate 100 H 96 H Respiratory 18 Rate Blood Pressure 130/80 O2 Sat by Pulse 99 Oximetry Intake and Output (last 12 hours): Intake & Output 10/09/15 10/10/15 10/10/15 18:59 06:59 18:59 Intake Total 1200 900 Output Total 600 1350 Balance 600 -450 Intake: Tube Feeding 800 700 Other 400 200 Output: Urine 600 1350 Urethral (Yoo) 600 1350 Other: # Bowel Movements 2 1 - Medications Medications: Current Medications Aspirin (Aspirin) 325 mg PO DAILY [facility] Last Admin: 10/10/15 09:37 Dose: 325 mg Clopidogrel Bisulfate (Plavix) 75 mg PO DAILY [facility] Last Admin: 10/10/15 09:37 Dose: 75 mg Lisinopril (Zestril) 5 mg PO DAILY [facility] Last Admin: 10/10/15 09:37 Dose: 5 mg Nystatin (Nystop Topical Powder) 1 applic TOP BID [facility] Last Admin: 10/10/15 09:37 Dose: 1 applic Petrolatum (Desitin Original) 0 gm TOP BID [facility] Last Admin: 10/10/15 09:37 Dose: 1 applic Phenytoin (Dilantin) 100 mg PEG TID [facility] Last Admin: 10/10/15 13:19 Dose: 100 mg Polyethylene Glycol (Miralax) 17 gm PEG BID [facility] Last Admin: 08/21/15 11:26 Dose: Not Given Assessment/Plan (1) Anoxic encephalopathy Current Visit: Yes Status: Acute Comment: On breathing vent, no changes. (2) STEMI (ST elevation myocardial infarction) Current Visit: Yes Status: Acute Comment: cardiac stents on 06/13/15. Continue Lisinopril 5mg PO daily Continue Plavix 75mg PO daily Continue ASA 325mg PO daily (3) Respiratory failure Current Visit: Yes Status: Acute Comment: 10/06: no rhonchi or rales auscultated. lasix 40mg IVP once given yesterday. CXR - patchy right basilar airspace opacity with granulomatous changes in the left upper lobe and pleural thickening 10/05: rhonchi auscultated. considering CXR 10/04: fluids were added to decrease LFTs 09/27. D/C fluids today Patient is vent dependent. Dr. Salgado (pul) on case-help appreciated Continue patient on trach SIMV. Patient is vent dependent. Unable to wean at this time. Monitor (4) Seizures Current Visit: Yes Status: Acute Comment: 10/06: no seizure activity noted 10/05: no seizure activity 10/04: no seizure activity observed 10/03: no seizure activity observed 10/02: continue current amangement 10/01: no seixure activity observed. continue dilantin 09/29: continue current management 09/27: no seizure activity observed 09/26: continue current management 09/25: No seizure activity observed dilantin level 10.4 112: No seizure activity observed. 09/23: No seizure activity reported or noted 09/22: Continue current management 09/21: No seizure activity observed. Continue to monitor. 09/09:Continue current management. 09/01: dilantin level 5.7, continue current management. 08/30--> repeat Dilantin level in am, cont meds, SZ precaution Continue dilantin 100mg via PEG TID Continue to monitor for seizure activity (5) Prophylactic measure Current Visit: Yes Status: Acute Comment: Plavix 75 mg PO daily [facility] Attending/Attestation - Attestation I have personally seen and examined this patient.: Yes I have fully participated in the care of the patient.: Yes I have reviewed all pertinent clinical information: Yes Notes (Text): 10/10/15 15:27 Patient was seen and examined during the round with residents. Patient had leukocytosis WBC 16 Patient also has deep sacral decubitus ulcer stage III at least we will get plastic surgery evaluation as well as wound care consult. Continue ventilatory support as per customer service operator
[2015-10-11 08:24] LABS: BASO % 0.4 % (0.0-2.0); EOS # 2.3 K/uL (0.0-0.7); HEMOGLOBIN 11.5 g/dL (12.0-18.0); LYMPH # 1.4 K/uL (1.0-4.3); LYMPH % 10.6 % (20.0-40.0); MEAN CELL VOLUME 93.5 fL (80.0-94.0); MEAN CORPUSCULAR HEMOGLOBIN 30.5 pg (27.0-31.0); MEAN CORPUSCULAR HGB CONC 32.6 g/dL (33.0-37.0); MEAN PLATELET VOLUME 8.3 fL (7.2-11.7); MONO % 7.9 % (0.0-10.0); NEUT # 8.3 K/uL (1.8-7.0); NEUT % 63.1 % (50.0-75.0); RBC 3.77 Mil/uL (4.40-5.90); RED CELL DISTRIBUTION WIDTH 14.3 % (11.5-14.5); WHITE BLOOD COUNT 13.1 K/uL (4.8-10.8)
[2015-10-11 08:31] LABS: ALBUMIN 2.9 g/dL (3.5-5.0)
[2015-10-11 08:34] LABS: ALB/GLOB RATIO 0.7 (1.0-2.1); ALT/SGPT 81 U/L (21-72); AST/SGOT 35 U/L (17-59); BLOOD UREA NITROGEN 20 mg/dL (9-20); GFR NON-AFRICAN AMERICAN > 60
[2015-10-11] MEDS: Phenytoin 100 mg/4 ml Oral Susp UD PEG SCH ×3 (09:13→17:12)
[2015-10-11] MEDS: Zinc Oxide Topical 30 gm Tube TOP SCH ×2 (09:14→17:13)
--- NOTE | 2015-10-11 13:46 | CP.PCM.PN ---
<Yesenia Mayer - Last Filed: 10/11/15 13:44> Subjective - Subjective Subjective: PGY-1 note - Dr. Rodrigues's service Pt was seen and examined at bedside. Pt awake, non verbal and not responsive to physical stimuli. No events overnight as per nursing. Nursing communication placed to follow wound care recommendations: SensiCare to buttocks around ulcer, MediHoney to necrotic tissue, Position Q2 hours. Review of Systems - Review of Systems Systems not reviewed;Unavailable: Altered Mental Status Objective - Vital Signs/Intake and Output Vital Signs (last 24 hours): Vital Signs - 24 hr 10/10/15 10/10/15 10/11/15 20:00 21:37 05:41 Temperature 99.2 F 98 F Pulse Rate 85 85 95 H Respiratory 19 20 Rate Blood Pressure 110/76 124/75 O2 Sat by Pulse 99 100 Oximetry 10/11/15 09:02 Temperature Pulse Rate 95 H Respiratory Rate Blood Pressure O2 Sat by Pulse Oximetry Intake and Output (last 12 hours): Intake & Output 10/10/15 10/11/15 10/11/15 18:59 06:59 18:59 Intake Total 900 Output Total 1300 Balance -400 Intake: Tube Feeding 700 Other 200 Output: Urine 1300 Urethral (Yoo) 1300 Other: # Bowel Movements 1 - Medications Medications: Current Medications Aspirin (Aspirin) 325 mg PO DAILY [facility] Last Admin: 10/11/15 09:14 Dose: 325 mg Clopidogrel Bisulfate (Plavix) 75 mg PO DAILY [facility] Last Admin: 10/11/15 09:14 Dose: 75 mg Lisinopril (Zestril) 5 mg PO DAILY [facility] Last Admin: 10/11/15 09:14 Dose: 5 mg Nystatin (Nystop Topical Powder) 1 applic TOP BID [facility] Last Admin: 10/11/15 09:14 Dose: 1 applic Petrolatum (Desitin Original) 0 gm TOP BID [facility] Last Admin: 10/11/15 09:14 Dose: 1 applic Phenytoin (Dilantin) 100 mg PEG TID [facility] Last Admin: 10/11/15 09:13 Dose: 100 mg Polyethylene Glycol (Miralax) 17 gm PEG BID [facility] Last Admin: 08/21/15 11:26 Dose: Not Given - Labs Labs (last 24 hours): Laboratory Results - last 24 hr 10/11/15 08:09 WBC 13.1 H RBC 3.77 L Hgb 11.5 L Hct 35.2 MCV 93.5 MCH 30.5 MCHC 32.6 L RDW 14.3 Plt Count 285 MPV 8.3 Neut % (Auto) 63.1 Lymph % (Auto) 10.6 L [place] % (Auto) 7.9 Eos % (Auto) 18.0 H Baso % (Auto) 0.4 Neut # 8.3 H Lymph # 1.4 [place] # 1.0 H Eos # 2.3 H Baso # 0.0 Sodium 138 Potassium 3.8 Chloride 99 Carbon Dioxide 31 H Anion Gap 12 BUN 20 Creatinine 0.5 L Est GFR ( Amer) > 60 Est GFR (Non-Af Amer) > 60 Random Glucose 184 H Calcium 8.0 L Phosphorus 3.3 Magnesium 2.2 Total Bilirubin 0.3 AST 35 ALT 81 H Alkaline Phosphatase 104 Total Protein 6.9 Albumin 2.9 L Globulin 3.9 Albumin/Globulin Ratio 0.7 L - Constitutional Appears: No Acute Distress - Head Exam Head Exam: NORMAL INSPECTION - Neck Exam Neck exam: absent: Lymphadenopathy - Respiratory Exam Respiratory Exam: Clear to PA & Lateral. absent: Rales, Rhonchi, Wheezes - Cardiovascular Exam Cardiovascular Exam: REGULAR RHYTHM, +S1, +S2 - GI/Abdominal Exam GI & Abdominal Exam: Normal Bowel Sounds, Soft. absent: Organomegaly, Tenderness - Extremities Exam Extremities exam: pedal pulses present. absent: tenderness - Neurological Exam Neurological exam: Alert. absent: Oriented x3 - Skin Skin Exam: Normal Color, Warm Assessment/Plan (1) Bed sore Current Visit: Yes Status: Acute Comment: 10/10: Wound care recommendations: SensiCare to buttocks around ulcer, MediHoney to necrotic tissue, Position Q2 hours, Recall when necrotic tissue is soft/loose for debridement 10/09: sacral ulcer, stage [address] Dr. Panchal consulted, f/u recommendations 08/09- stage one ulcer, healed, per nursing. continue repositioning of patient q2H dolphin mattress (2) Chest congestion Current Visit: Yes Status: Acute Comment: 09/29: lungs clear 3: Lungs clear 09/24: Lungs clear to auscultation 09/23: Lungs CTA 09/22: lungs CTA bilaterally 09/21: Lungs clear bilaterally. 09/15: No change 09/14: Clear to auscultation. No acute distress. 09/12: CXR on 09/12 shows no changes. 09/09: No acute distress. Afebrile. 09/08: Not using accesory muscles. Afebrile. Sputum culture (07/28/15) with Pseudomonas aeruginosa s/p treatment Dr. Armstrong on case-following. (3) Thrombophlebitis of superficial veins of upper extremities Current Visit: Yes Status: Acute Comment: Venous doppler (07/19) prelim report - thrombosis of right cephalic vein (superficial) Shows Abnormality Lovenox 40mg SC daily Warm compresses to area 15 minutes, 3x a day f/u final venous doppler report (4) Edema of upper extremity Current Visit: Yes Status: Acute Comment: Continue warm compresses Venous doppler (07/19) showed superficial thrombosis of right cephalic vein. ( see official report). Monitor (5) Anoxic encephalopathy Current Visit: Yes Status: Acute Comment: On breathing vent, no changes. (6) Respiratory failure Current Visit: Yes Status: Acute Comment: 10/06: no rhonchi or rales auscultated. lasix 40mg IVP once given yesterday. CXR - patchy right basilar airspace opacity with granulomatous changes in the left upper lobe and pleural thickening 10/05: rhonchi auscultated. considering CXR 10/04: fluids were added to decrease LFTs 09/27. D/C fluids today Patient is vent dependent. Dr. Salgado (pul) on case-help appreciated Continue patient on trach SIMV. Patient is vent dependent. Unable to wean at this time. Monitor (7) Transaminitis Current Visit: Yes Status: Acute Comment: F/u CMP on Mondays and labs 10/04: AST 54, ALT 109, ALP 11, tbili 0.2 improving D/C fluids 10/01: tbili 0.3, AST 48, ALT 128, ALP 112 decreasing 09/27: AST 87, ALT 227, ALP 117, tbili 0.4 Dilantin level 10.4 started D5-1/2NS @ 50cc/hr 09/24: AST 140, ALT 209, alk phos 100. Increasing LFTs. 09/20: AST 49 , ALT 83 and Alk phos 97. Stable. 09/18: AST 42 , ALT 95 and Alk phos 117. Stable. 09/17: AST 50, [id number] and Alk phos 112. Stable. 09/14: AST 51, ALT 107 and AlK phos 118. Stable. 09/12: AST 49, ALT 99 and AlK phos 115. Improved. Recheck Q4days. Hep panel negative Continue to monitor LFTs (8) Cardiac arrest Current Visit: Yes Status: Acute Comment: s/p V-Tach arrest Continue Plavix 75mg PO daily Continue ASA 325mg PO daily Continue Lisinopril 5mg PO daily (9) STEMI (ST elevation myocardial infarction) Current Visit: Yes Status: Acute Comment: cardiac stents on 06/13/15. Continue Lisinopril 5mg PO daily Continue Plavix 75mg PO daily Continue ASA 325mg PO daily (10) Seizures Current Visit: Yes Status: Acute Comment: 10/06: no seizure activity noted 10/05: no seizure activity 10/04: no seizure activity observed 10/03: no seizure activity observed 10/02: continue current amangement 10/01: no seixure activity observed. continue dilantin 09/29: continue current management 09/27: no seizure activity observed 09/26: continue current management 09/25: No seizure activity observed dilantin level 10.4 09/24: No seizure activity observed. 09/23: No seizure activity reported or noted 09/22: Continue current management 09/21: No seizure activity observed. Continue to monitor. 09/09:Continue current management. 09/01: dilantin level 5.7, continue current management. 08/30--> repeat Dilantin level in am, cont meds, SZ precaution Continue dilantin 100mg via PEG TID Continue to monitor for seizure activity (11) Prophylactic measure Current Visit: Yes Status: Acute Comment: Plavix 75 mg PO daily [facility] <Nyandra,Rashel - Last Filed: 10/11/15 18:00> Objective - Vital Signs/Intake and Output Vital Signs (last 24 hours): Vital Signs - 24 hr 10/10/15 10/10/15 10/11/15 20:00 21:37 05:41 Temperature 99.2 F 98 F Pulse Rate 85 85 95 H Respiratory 19 20 Rate Blood Pressure 110/76 124/75 O2 Sat by Pulse 99 100 Oximetry 10/11/15 10/11/15 09:02 14:39 Temperature 98.8 F Pulse Rate 95 H 90 Respiratory 20 Rate Blood Pressure 108/70 O2 Sat by Pulse 100 Oximetry Intake and Output (last 12 hours): Intake & Output 10/10/15 10/11/15 10/11/15 18:59 06:59 18:59 Intake Total 900 800 Output Total 1300 800 Balance -400 0 Intake: Tube Feeding 700 800 Other 200 Output: Urine 1300 800 Urethral (Yoo) 1300 800 Other: # Bowel Movements 1 1 - Medications Medications: Current Medications Aspirin (Aspirin) 325 mg PO DAILY [facility] Last Admin: 10/11/15 09:14 Dose: 325 mg Clopidogrel Bisulfate (Plavix) 75 mg PO DAILY [facility] Last Admin: 10/11/15 09:14 Dose: 75 mg Lisinopril (Zestril) 5 mg PO DAILY [facility] Last Admin: 10/11/15 09:14 Dose: 5 mg Nystatin (Nystop Topical Powder) 1 applic TOP BID [facility] Last Admin: 10/11/15 17:13 Dose: 1 applic Petrolatum (Desitin Original) 0 gm TOP BID [facility] Last Admin: 10/11/15 17:13 Dose: 1 applic Phenytoin (Dilantin) 100 mg PEG TID [facility] Last Admin: 10/11/15 17:12 Dose: 100 mg Polyethylene Glycol (Miralax) 17 gm PEG BID [facility] Last Admin: 08/21/15 11:26 Dose: Not Given - Labs Labs (last 24 hours): Laboratory Results - last 24 hr 10/11/15 08:09 WBC 13.1 H RBC 3.77 L Hgb 11.5 L Hct 35.2 MCV 93.5 MCH 30.5 MCHC 32.6 L RDW 14.3 Plt Count 285 MPV 8.3 Neut % (Auto) 63.1 Lymph % (Auto) 10.6 L [place] % (Auto) 7.9 Eos % (Auto) 18.0 H Baso % (Auto) 0.4 Neut # 8.3 H Lymph # 1.4 [place] # 1.0 H Eos # 2.3 H Baso # 0.0 Sodium 138 Potassium 3.8 Chloride 99 Carbon Dioxide 31 H Anion Gap 12 BUN 20 Creatinine 0.5 L Est GFR ( Amer) > 60 Est GFR (Non-Af Amer) > 60 Random Glucose 184 H Calcium 8.0 L Phosphorus 3.3 Magnesium 2.2 Total Bilirubin 0.3 AST 35 ALT 81 H Alkaline Phosphatase 104 Total Protein 6.9 Albumin 2.9 L Globulin 3.9 Albumin/Globulin Ratio 0.7 L Assessment/Plan (1) Anoxic encephalopathy Current Visit: Yes Status: Acute Comment: On breathing vent, no changes. (2) STEMI (ST elevation myocardial infarction) Current Visit: Yes Status: Acute Comment: cardiac stents on 06/13/15. Continue Lisinopril 5mg PO daily Continue Plavix 75mg PO daily Continue ASA 325mg PO daily (3) Respiratory failure Current Visit: Yes Status: Acute Comment: 10/06: no rhonchi or rales auscultated. lasix 40mg IVP once given yesterday. CXR - patchy right basilar airspace opacity with granulomatous changes in the left upper lobe and pleural thickening 10/05: rhonchi auscultated. considering CXR 10/04: fluids were added to decrease LFTs 09/27. D/C fluids today Patient is vent dependent. Dr. Salgado (pul) on case-help appreciated Continue patient on trach SIMV. Patient is vent dependent. Unable to wean at this time. Monitor (4) Seizures Current Visit: Yes Status: Acute Comment: 10/06: no seizure activity noted 10/05: no seizure activity 10/04: no seizure activity observed 10/03: no seizure activity observed 10/02: continue current amangement 10/01: no seixure activity observed. continue dilantin 09/29: continue current management 09/27: no seizure activity observed 09/26: continue current management 09/25: No seizure activity observed dilantin level 10.4 09/24: No seizure activity observed. 09/23: No seizure activity reported or noted 09/22: Continue current management 09/21: No seizure activity observed. Continue to monitor. 09/09:Continue current management. 09/01: dilantin level 5.7, continue current management. 08/30--> repeat Dilantin level in am, cont meds, SZ precaution Continue dilantin 100mg via PEG TID Continue to monitor for seizure activity (5) Prophylactic measure Current Visit: Yes Status: Acute Comment: Plavix 75 mg PO daily [facility] Attending/Attestation - Attestation I have personally seen and examined this patient.: Yes I have fully participated in the care of the patient.: Yes I have reviewed all pertinent clinical information: Yes
[2015-10-12] MEDS: Phenytoin 100 mg/4 ml Oral Susp UD PEG SCH ×3 (09:39→17:14)
[2015-10-12] MEDS: Zinc Oxide Topical 30 gm Tube TOP SCH ×2 (09:43→17:13)
--- NOTE | 2015-10-12 19:19 | CP.PCM.PN ---
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 Rodrigues Patient examined in room, eyes closed, unable to obtain history form patient. Objective - Vital Signs/Intake and Output Vital Signs (last 24 hours): Vital Signs - 24 hr 10/11/15 10/11/15 10/12/15 20:00 20:41 05:29 Temperature 98.2 F 98.3 F Pulse Rate 81 81 88 Respiratory 18 14 Rate Blood Pressure 120/78 O2 Sat by Pulse 98 99 Oximetry 10/12/15 10/12/15 07:33 13:56 Temperature 97.9 F Pulse Rate 80 Respiratory 12 Rate Blood Pressure 115/69 128/85 O2 Sat by Pulse Oximetry Intake and Output (last 12 hours): Intake & Output 10/12/15 10/12/15 10/13/15 06:59 18:59 06:59 Intake Total 900 1050 Output Total 1400 1100 Balance -500 -50 Intake: Tube Feeding 700 1050 Other 200 Output: Urine 1400 1100 Urethral (Yoo) 1400 1100 Other: # Bowel Movements 1 2 - Medications Medications: Current Medications Aspirin (Aspirin) 325 mg PO DAILY [facility] Last Admin: 10/12/15 09:40 Dose: 325 mg Clopidogrel Bisulfate (Plavix) 75 mg PO DAILY [facility] Last Admin: 10/12/15 09:41 Dose: 75 mg Lisinopril (Zestril) 5 mg PO DAILY [facility] Last Admin: 10/12/15 09:40 Dose: 5 mg Nystatin (Nystop Topical Powder) 1 applic TOP BID [facility] Last Admin: 10/12/15 17:14 Dose: 1 applic Petrolatum (Desitin Original) 0 gm TOP BID [facility] Last Admin: 10/12/15 17:13 Dose: 1 applic Phenytoin (Dilantin) 100 mg PEG TID [facility] Last Admin: 10/12/15 17:14 Dose: 100 mg Polyethylene Glycol (Miralax) 17 gm PEG BID [facility] Last Admin: 08/21/15 11:26 Dose: Not Given - Constitutional Appears: Chronically Ill - Head Exam Head Exam: ATRAUMATIC, NORMAL INSPECTION - Eye Exam Eye Exam: Normal appearance. absent: PERRL Pupil Exam: Mydriatic - ENT Exam ENT Exam: Mucous Membranes Moist - Respiratory Exam Respiratory Exam: Clear to PA & Lateral, NORMAL BREATHING PATTERN. absent: Rales, Rhonchi - Cardiovascular Exam Cardiovascular Exam: REGULAR RHYTHM, RRR, +S1, +S2 - GI/Abdominal Exam GI & Abdominal Exam: Normal Bowel Sounds, Soft, Tenderness - Extremities Exam Extremities exam: calf tenderness, tenderness. absent: pedal edema Assessment/Plan (1) Anoxic encephalopathy Current Visit: Yes Status: Acute Comment: On breathing vent, no changes. (2) CAD (coronary artery disease) Current Visit: Yes Status: Acute Comment: Continue Lisinopril 5mg PO daily Continue ASA 325mg PO daily Continue Plavix 75mg PO daily (3) STEMI (ST elevation myocardial infarction) Current Visit: Yes Status: Acute Comment: cardiac stents on 06/13/15. Continue Lisinopril 5mg PO daily Continue Plavix 75mg PO daily Continue ASA 325mg PO daily (4) Seizures Current Visit: Yes Status: Acute Comment: 10/06: no seizure activity noted 10/05: no seizure activity 10/04: no seizure activity observed 10/03: no seizure activity observed 10/02: continue current amangement 10/01: no seixure activity observed. continue dilantin 09/29: continue current management 09/27: no seizure activity observed 09/26: continue current management 09/25: No seizure activity observed dilantin level 10.4 09/24: No seizure activity observed. 09/23: No seizure activity reported or noted 09/22: Continue current management 09/21: No seizure activity observed. Continue to monitor. 09/09:Continue current management. 09/01: dilantin level 5.7, continue current management. 08/30--> repeat Dilantin level in am, cont meds, SZ precaution Continue dilantin 100mg via PEG TID Continue to monitor for seizure activity (5) Prophylactic measure Current Visit: Yes Status: Acute Comment: Plavix 75 mg PO daily [facility] <RaviRashel - Last Filed: 10/13/15 08:05> Objective - Vital Signs/Intake and Output Vital Signs (last 24 hours): Vital Signs - 24 hr 10/12/15 10/12/15 10/12/15 13:56 20:00 21:22 Temperature 97.9 F 98.5 F Pulse Rate 80 80 78 Respiratory 12 18 Rate Blood Pressure 128/85 129/87 O2 Sat by Pulse 100 Oximetry 10/13/15 05:00 Temperature 98.4 F Pulse Rate 92 H Respiratory 20 Rate Blood Pressure 125/77 O2 Sat by Pulse 98 Oximetry Intake and Output (last 12 hours): Intake & Output 10/12/15 10/13/15 10/13/15 18:59 06:59 18:59 Intake Total 1050 900 Output Total 1100 850 Balance -50 50 Intake: Tube Feeding 1050 700 Other 200 Output: Urine 1100 850 Urethral (Yoo) 1100 850 Other: # Bowel Movements 2 1 - Medications Medications: Current Medications Aspirin (Aspirin) 325 mg PO DAILY [facility] Last Admin: 10/12/15 09:40 Dose: 325 mg Clopidogrel Bisulfate (Plavix) 75 mg PO DAILY [facility] Last Admin: 10/12/15 09:41 Dose: 75 mg Enoxaparin Sodium (Lovenox) 40 mg SC DAILY [facility] Lisinopril (Zestril) 5 mg PO DAILY [facility] Last Admin: 10/12/15 09:40 Dose: 5 mg Nystatin (Nystop Topical Powder) 1 applic TOP BID [facility] Last Admin: 10/12/15 17:14 Dose: 1 applic Petrolatum (Desitin Original) 0 gm TOP BID [facility] Last Admin: 10/12/15 17:13 Dose: 1 applic Phenytoin (Dilantin) 100 mg PEG TID [facility] Last Admin: 10/12/15 17:14 Dose: 100 mg Polyethylene Glycol (Miralax) 17 gm PEG BID [facility] Last Admin: 08/21/15 11:26 Dose: Not Given - Labs Labs (last 24 hours): Laboratory Results - last 24 hr 10/13/15 07:54 WBC 10.5 RBC 4.01 L Hgb 12.3 Hct 37.3 MCV 93.0 MCH 30.8 MCHC 33.1 RDW 14.4 Plt Count 339 MPV 8.2 Neut % (Auto) 54.7 Lymph % (Auto) 14.2 L Alexander % (Auto) 8.6 Eos % (Auto) 22.0 H Baso % (Auto) 0.5 Neut # 5.7 Lymph # 1.5 Alexander # 0.9 H Eos # 2.3 H Baso # 0.1 Assessment/Plan (1) Anoxic encephalopathy Current Visit: Yes Status: Acute Comment: On breathing vent, no changes. (2) STEMI (ST elevation myocardial infarction) Current Visit: Yes Status: Acute Comment: cardiac stents on 7/22/15. Continue Lisinopril 5mg PO daily Continue Plavix 75mg PO daily Continue ASA 325mg PO daily (3) Respiratory failure Current Visit: Yes Status: Acute Comment: 10/12--> cont vent mx as per Pulm, unable to wean 10/06: no rhonchi or rales auscultated. lasix 40mg IVP once given yesterday. CXR - patchy right basilar airspace opacity with granulomatous changes in the left upper lobe and pleural thickening 10/05: rhonchi auscultated. considering CXR 10/04: fluids were added to decrease LFTs 09/27. D/C fluids today Patient is vent dependent. Dr. Salgado (pul) on case-help appreciated Continue patient on trach SIMV. Patient is vent dependent. Unable to wean at this time. Monitor (4) Seizures Current Visit: Yes Status: Acute Comment: 10/06: no seizure activity noted 10/05: no seizure activity 10/04: no seizure activity observed 10/03: no seizure activity observed 10/02: continue current amangement 10/01: no seixure activity observed. continue dilantin 09/29: continue current management 09/27: no seizure activity observed 09/26: continue current management 09/25: No seizure activity observed dilantin level 10.4 09/24: No seizure activity observed. 09/23: No seizure activity reported or noted 09/22: Continue current management 09/21: No seizure activity observed. Continue to monitor. 09/09:Continue current management. 09/01: dilantin level 5.7, continue current management. 08/30--> repeat Dilantin level in am, cont meds, SZ precaution Continue dilantin 100mg via PEG TID Continue to monitor for seizure activity (5) Prophylactic measure Current Visit: Yes Status: Acute Comment: Lovenox 40 mg SQ daily [facility] Pepcid 20 mg BID (6) Bed sore Current Visit: Yes Status: Acute Comment: 10/12--> cont LWC as per Plastic and Wound care team 10/10: Wound care recommendations: SensiCare to buttocks around ulcer, MediHoney to necrotic tissue, Position Q2 hours, Recall when necrotic tissue is soft/loose for debridement 10/09: sacral ulcer, stage [address] Dr[address] Panchal consulted, f/u recommendations 08/09- stage one ulcer, healed, per nursing. continue repositioning of patient q2H formerly [facility], [facility] Attending/Attestation - Attestation I have personally seen and examined this patient.: Yes I have fully participated in the care of the patient.: Yes I have reviewed all pertinent clinical information: Yes
--- NOTE | 2015-10-13 01:06 | CP.PCM.PN ---
<Yesenia Mayer - Last Filed: 10/13/15 01:08> Subjective - Subjective Subjective: PGY-1 note - Dr. Rodrigues's service Pt was seen and examined at bedside. Sleeping comfortably. Patient moved his left foot when touched, but it may just have been a reflex since I was not able to elicit the same response a few minutes later. No events overnight as per nursing. Review of Systems - Review of Systems Systems not reviewed;Unavailable: Altered Mental Status Objective - Vital Signs/Intake and Output Vital Signs (last 24 hours): Vital Signs - 24 hr 10/12/15 10/12/15 10/12/15 05:29 07:33 13:56 Temperature 98.3 F 97.9 F Pulse Rate 88 80 Respiratory 14 12 Rate Blood Pressure 115/69 128/85 O2 Sat by Pulse 99 Oximetry 10/12/15 10/12/15 20:00 21:22 Temperature 98.5 F Pulse Rate 80 78 Respiratory 18 Rate Blood Pressure 129/87 O2 Sat by Pulse 100 Oximetry Intake and Output (last 12 hours): Intake & Output 10/12/15 10/12/15 10/13/15 06:59 18:59 06:59 Intake Total 900 1050 Output Total 1400 1100 450 Balance -500 -50 -450 Intake: Tube Feeding 700 1050 Other 200 Output: Urine 1400 1100 450 Urethral (Baker) 1400 1100 450 Other: # Bowel Movements 1 2 1 - Medications Medications: Current Medications Aspirin (Aspirin) 325 mg PO DAILY [facility] Last Admin: 10/12/15 09:40 Dose: 325 mg Clopidogrel Bisulfate (Plavix) 75 mg PO DAILY [facility] Last Admin: 10/12/15 09:41 Dose: 75 mg Lisinopril (Zestril) 5 mg PO DAILY [facility] Last Admin: 10/12/15 09:40 Dose: 5 mg Nystatin (Nystop Topical Powder) 1 applic TOP BID [facility] Last Admin: 10/12/15 17:14 Dose: 1 applic Petrolatum (Desitin Original) 0 gm TOP BID [facility] Last Admin: 10/12/15 17:13 Dose: 1 applic Phenytoin (Dilantin) 100 mg PEG TID [facility] Last Admin: 10/12/15 17:14 Dose: 100 mg Polyethylene Glycol (Miralax) 17 gm PEG BID [facility] Last Admin: 08/21/15 11:26 Dose: Not Given - Constitutional Appears: No Acute Distress - Head Exam Head Exam: NORMAL INSPECTION - ENT Exam ENT Exam: Mucous Membranes Dry - Neck Exam Additional comments: trach collar - Respiratory Exam Respiratory Exam: Clear to PA & Lateral. absent: Rales, Rhonchi, Wheezes - Cardiovascular Exam Cardiovascular Exam: REGULAR RHYTHM, +S1, +S2 - GI/Abdominal Exam GI & Abdominal Exam: Normal Bowel Sounds, Soft. absent: Organomegaly - Extremities Exam Extremities exam: pedal pulses present. absent: pedal edema, tenderness - Neurological Exam Neurological exam: absent: Alert, Oriented x3 - Psychiatric Exam Psychiatric exam: absent: Normal Affect - Skin Skin Exam: Normal Color, Warm Assessment/Plan (1) Leukocytosis Current Visit: Yes Status: Acute Comment: 10/13: -last WBC on 10/11 was 13.1 -patient afebrile but does have sacral bed sore -consider CXR if pt becomes febrile -f/u WBC today 09/20: WBC 10.7; will f/u CBC on 09/25: WBC increased from to 17.2. replace baker catheter and f/u urine culture , urinalysis. f/u CXR in AM CXR - no active disease Monitor temperature Afebrile IV Cefepime 1gm q12h started 07/21 Monitor (2) Bed sore Current Visit: Yes Status: Acute Comment: 10/10: Wound care recommendations: SensiCare to buttocks around ulcer, MediHoney to necrotic tissue, Position Q2 hours, Recall when necrotic tissue is soft/loose for debridement 10/09: sacral ulcer, stage [address] Dr. Panchal consulted, f/u recommendations 08/09- stage one ulcer, healed, per nursing. continue repositioning of patient q2H dolphin mattress (3) Chest congestion Current Visit: Yes Status: Acute Comment: 09/29: lungs clear 09/25: Lungs clear 09/24: Lungs clear to auscultation 09/23: Lungs CTA 09/22: lungs CTA bilaterally 09/21: Lungs clear bilaterally. 09/15: No change 09/14: Clear to auscultation. No acute distress. 09/12: CXR on 09/12 shows no changes. 09/09: No acute distress. Afebrile. 09/08: Not using accesory muscles. Afebrile. Sputum culture (07/28/15) with Pseudomonas aeruginosa s/p treatment Dr. Armstrong on case-following. (4) Thrombophlebitis of superficial veins of upper extremities Current Visit: Yes Status: Acute Comment: Venous doppler (07/19) prelim report - thrombosis of right cephalic vein (superficial) Shows Abnormality Lovenox 40mg SC daily Warm compresses to area 15 minutes, 3x a day f/u final venous doppler report (5) Edema of upper extremity Current Visit: Yes Status: Acute Comment: Continue warm compresses Venous doppler (07/19) showed superficial thrombosis of right cephalic vein. ( see official report). Monitor (6) Anoxic encephalopathy Current Visit: Yes Status: Acute Comment: On breathing vent, no changes. (7) Respiratory failure Current Visit: Yes Status: Acute Comment: 10/06: no rhonchi or rales auscultated. lasix 40mg IVP once given yesterday. CXR - patchy right basilar airspace opacity with granulomatous changes in the left upper lobe and pleural thickening 10/05: rhonchi auscultated. considering CXR 10/04: fluids were added to decrease LFTs 09/27. D/C fluids today Patient is vent dependent. Dr. Salgado (pulm) on case-help appreciated Continue patient on trach SIMV. Patient is vent dependent. Unable to wean at this time. Monitor (8) Transaminitis Current Visit: Yes Status: Acute Comment: F/u CMP on Mondays and labs 10/04: AST 54, ALT 109, ALP 11, tbili 0.2 improving D/C fluids 10/01: tbili 0.3, AST 48, ALT 128, ALP 112 decreasing 09/27: AST 87, ALT 227, ALP 117, tbili 0.4 Dilantin level 10.4 started D5-1/2NS @ 50cc/hr 09/24: AST 140, ALT 209, alk phos 100. Increasing LFTs. 09/20: AST 49 , ALT 83 and Alk phos 97. Stable. 09/18: AST 42 , ALT 95 and Alk phos 117. Stable. 09/17: AST 50, [id number] and Alk phos 112. Stable. 09/14: AST 51, ALT 107 and AlK phos 118. Stable. 09/12: AST 49, ALT 99 and AlK phos 115. Improved. Recheck Q4days. Hep panel negative Continue to monitor LFTs (9) Cardiac arrest Current Visit: Yes Status: Acute Comment: s/p V-Tach arrest Continue Plavix 75mg PO daily Continue ASA 325mg PO daily Continue Lisinopril 5mg PO daily (10) STEMI (ST elevation myocardial infarction) Current Visit: Yes Status: Acute Comment: cardiac stents on 06/13/15. Continue Lisinopril 5mg PO daily Continue Plavix 75mg PO daily Continue ASA 325mg PO daily (11) Seizures Current Visit: Yes Status: Acute Comment: 10/06: no seizure activity noted 10/05: no seizure activity 10/04: no seizure activity observed 10/03: no seizure activity observed 10/02: continue current amangement 10/01: no seixure activity observed. continue dilantin 09/29: continue current management 09/27: no seizure activity observed 09/26: continue current management 09/25: No seizure activity observed dilantin level 10.4 09/24: No seizure activity observed. 09/23: No seizure activity reported or noted 09/22: Continue current management 09/21: No seizure activity observed. Continue to monitor. 09/09:Continue current management. 09/01: dilantin level 5.7, continue current management. 08/30--> repeat Dilantin level in am, cont meds, SZ precaution Continue dilantin 100mg via PEG TID Continue to monitor for seizure activity (12) Prophylactic measure Current Visit: Yes Status: Acute Comment: Plavix 75 mg PO daily [facility] <Rashel Rodrigues - Last Filed: 10/13/15 18:31> Objective - Vital Signs/Intake and Output Vital Signs (last 24 hours): Vital Signs - 24 hr 10/12/15 10/12/15 10/13/15 20:00 21:22 05:00 Temperature 98.5 F 98.4 F Pulse Rate 80 78 92 H Respiratory 18 20 Rate Blood Pressure 129/87 125/77 O2 Sat by Pulse 100 98 Oximetry 10/13/15 10/13/15 08:00 14:16 Temperature 99.0 F Pulse Rate 92 H 103 H Respiratory 20 Rate Blood Pressure 110/74 O2 Sat by Pulse 100 Oximetry Intake and Output (last 12 hours): Intake & Output 10/12/15 10/13/1515 18:59 06:59 18:59 Intake Total 1050 900 Output Total 1100 850 Balance -50 50 Intake: Tube Feeding 1050 700 Other 200 Output: Urine 1100 850 Urethral (Baker) 1100 850 Other: # Bowel Movements 2 1 - Medications Medications: Current Medications Aspirin (Aspirin) 325 mg PO DAILY [facility] Last Admin: 10/13/15 09:50 Dose: 325 mg Clopidogrel Bisulfate (Plavix) 75 mg PO DAILY [facility] Last Admin: 10/13/15 09:54 Dose: 75 mg Enoxaparin Sodium (Lovenox) 40 mg SC DAILY [facility] Last Admin: 10/13/15 10:08 Dose: 40 mg Lisinopril (Zestril) 5 mg PO DAILY [facility] Last Admin: 10/13/15 09:55 Dose: 5 mg Nystatin (Nystop Topical Powder) 1 applic TOP BID [facility] Last Admin: 10/13/15 18:24 Dose: 1 applic Petrolatum (Desitin Original) 0 gm TOP BID [facility] Last Admin: 10/13/15 18:23 Dose: 1 applic Phenytoin (Dilantin) 100 mg PEG TID [facility] Last Admin: 10/13/15 18:23 Dose: 100 mg Polyethylene Glycol (Miralax) 17 gm PEG BID [facility] Last Admin: 08/21/15 11:26 Dose: Not Given - Labs Labs (last 24 hours): Laboratory Results - last 24 hr 10/13/15 10/13/15 07:54 12:35 WBC 10.5 RBC 4.01 L Hgb 12.3 Hct 37.3 MCV 93.0 MCH 30.8 MCHC 33.1 RDW 14.4 Plt Count 339 MPV 8.2 Neut % (Auto) 54.7 Lymph % (Auto) 14.2 L Perry % (Auto) 8.6 Eos % (Auto) 22.0 H Baso % (Auto) 0.5 Neut # 5.7 Lymph # 1.5 Perry # 0.9 H Eos # 2.3 H Baso # 0.1 Neutrophils % (Manual) 48 L Lymphocytes % (Manual) 14 L Monocytes % (Manual) 11 H Eosinophils % (Manual) 27 H Platelet Estimate Normal RBC Morphology Normal pCO2 37.0 pO2 147.0 H HCO3 28.2 H* ABG pH 7.490 H ABG Total CO2 29.3 H ABG O2 Saturation 99.0 ABG Base Excess 4.7 H A-a O2 Difference 92.0 Spontaneous Rate 21.000 FiO2 40.000 Tidal Volume 365.000 Pressure Support 8.000 CPAP 5.000 Sodium 141 Potassium 4.2 Chloride 103 Carbon Dioxide 28 Anion Gap 14 BUN 19 Creatinine 0.4 L Est GFR ( Amer) > 60 Est GFR (Non-Af Amer) > 60 Random Glucose 128 H Calcium 9.1 Phosphorus 4.7 H Magnesium 2.2 Total Bilirubin 0.3 AST 34 ALT 70 Alkaline Phosphatase 109 Total Protein 7.4 Albumin 3.4 L Globulin 4.0 H Albumin/Globulin Ratio 0.9 L Assessment/Plan (1) Anoxic encephalopathy Current Visit: Yes Status: Acute Comment: On breathing vent, no changes. (2) STEMI (ST elevation myocardial infarction) Current Visit: Yes Status: Acute Comment: cardiac stents on 06/13/15. Continue Lisinopril 5mg PO daily Continue Plavix 75mg PO daily Continue ASA 325mg PO daily (3) Respiratory failure Current Visit: Yes Status: Acute Comment: 10/12--> cont vent mx as per Pulm, unable to wean 10/06: no rhonchi or rales auscultated. lasix 40mg IVP once given yesterday. CXR - patchy right basilar airspace opacity with granulomatous changes in the left upper lobe and pleural thickening 10/05: rhonchi auscultated. considering CXR 10/04: fluids were added to decrease LFTs 09/27. D/C fluids today Patient is vent dependent. Dr. Salgado (pul) on case-help appreciated Continue patient on trach SIMV. Patient is vent dependent. Unable to wean at this time. Monitor (4) Seizures Current Visit: Yes Status: Acute Comment: 10/06: no seizure activity noted 10/05: no seizure activity 10/04: no seizure activity observed 10/03: no seizure activity observed 10/02: continue current amangement 10/01: no seixure activity observed. continue dilantin 09/29: continue current management 09/27: no seizure activity observed 09/26: continue current management 09/25: No seizure activity observed dilantin level 10.4 09/24: No seizure activity observed. 09/23: No seizure activity reported or noted 09/22: Continue current management 09/21: No seizure activity observed. Continue to monitor. 09/09:Continue current management. 09/01: dilantin level 5.7, continue current management. 08/30--> repeat Dilantin level in am, cont meds, SZ precaution Continue dilantin 100mg via PEG TID Continue to monitor for seizure activity (5) Prophylactic measure Current Visit: Yes Status: Acute Comment: Lovenox 40 mg SQ daily [facility] Pepcid 20 mg BID (6) Bed sore Current Visit: Yes Status: Acute Comment: 10/12--> cont LWC as per Plastic and Wound care team 10/10: Wound care recommendations: SensiCare to buttocks around ulcer, MediHoney to necrotic tissue, Position Q2 hours, Recall when necrotic tissue is soft/loose for debridement 10/09: sacral ulcer, stage [address] Dr. Panchal consulted, f/u recommendations 08/09- stage one ulcer, healed, per nursing. continue repositioning of patient q2H [facility] Attending/Attestation - Attestation I have personally seen and examined this patient.: Yes I have fully participated in the care of the patient.: Yes I have reviewed all pertinent clinical information: Yes Notes (Text): 10/13/15 18:30 Patient seen and examined during the round with residents. pt has some improvement and now on CPAP weaning trial Pt is tolerating for at least 3 Hr cont vent weaning as per Pulm co nt meds, supportive mx No more fever, WBC count improving
[2015-10-13 07:58] LABS: BASO # 0.1 K/uL (0.0-0.2); BASO % 0.5 % (0.0-2.0); EOS # 2.3 K/uL (0.0-0.7); HEMOGLOBIN 12.3 g/dL (12.0-18.0); LYMPH # 1.5 K/uL (1.0-4.3); LYMPH % 14.2 % (20.0-40.0); MEAN CORPUSCULAR HEMOGLOBIN 30.8 pg (27.0-31.0); MEAN CORPUSCULAR HGB CONC 33.1 g/dL (33.0-37.0); MEAN PLATELET VOLUME 8.2 fL (7.2-11.7); MONO # 0.9 K/uL (0.0-0.8); MONO % 8.6 % (0.0-10.0); NEUT # 5.7 K/uL (1.8-7.0); NEUT % 54.7 % (50.0-75.0); PLATELET COUNT 339 K/uL (130-400); RBC 4.01 Mil/uL (4.40-5.90); RED CELL DISTRIBUTION WIDTH 14.4 % (11.5-14.5); WHITE BLOOD COUNT 10.5 K/uL (4.8-10.8)
[2015-10-13 08:31] LABS: ALBUMIN 3.4 g/dL (3.5-5.0)
[2015-10-13 08:34] LABS: ALB/GLOB RATIO 0.9 (1.0-2.1); AST/SGOT 34 U/L (17-59); BLOOD UREA NITROGEN 19 mg/dL (9-20); GFR NON-AFRICAN AMERICAN > 60
[2015-10-13 08:35] LABS: ALT/SGPT 70 U/L (21-72); CALCIUM 9.1 mg/dL (8.4-10.2)
[2015-10-13 09:09] LABS: EOSINOPHIL 27 % (0-4); LYMPHOCYTE 14 % (20-40); MONOCYTE 11 % (0-10); NEUTROPHIL 48 % (50-75); TOTAL CELLS COUNTED 100
[2015-10-13 09:10] LABS: PLATELET ESTIMATE NORMAL (NORMAL)
[2015-10-13] MEDS: Zinc Oxide Topical 30 gm Tube TOP SCH ×2 (09:50→18:23)
[2015-10-13] MEDS: Phenytoin 100 mg/4 ml Oral Susp UD PEG SCH ×3 (09:51→18:23)
[2015-10-13] MEDS: Enoxaparin 40 mg Syringe SC SCH (10:08)
[2015-10-13 12:43] LABS: ARTERIAL BLOOD GAS HCO3 28.2 mmol/L (22.0-26.0); ARTERIAL BLOOD GAS TCO2 29.3 mmol/L (22-28)
--- NOTE | 2015-10-14 02:59 | CP.PCM.PN ---
<Yesenia Mayer - Last Filed: 10/14/15 02:56> Subjective - Subjective Subjective: PGY-1 note - Dr. Rodrigues's service Pt was seen and examined at bedside. Sleeping comfortably. Non-verbal secondary to anoxic brain injury. Continues to have reflex movements when touched. No events overnight as per nursing. Review of Systems - Review of Systems Systems not reviewed;Unavailable: Altered Mental Status Objective - Vital Signs/Intake and Output Vital Signs (last 24 hours): Vital Signs - 24 hr 10/13/15 10/13/15 10/13/15 05:00 08:00 14:16 Temperature 98.4 F 99.0 F Pulse Rate 92 H 92 H 103 H Respiratory 20 20 Rate Blood Pressure 125/77 110/74 O2 Sat by Pulse 98 100 Oximetry 10/13/15 10/13/15 20:00 21:53 Temperature 98.7 F Pulse Rate 89 89 Respiratory 20 Rate Blood Pressure 129/86 O2 Sat by Pulse 100 Oximetry Intake and Output (last 12 hours): Intake & Output 10/13/15 10/13/15 10/14/15 06:59 18:59 06:59 Intake Total 900 1000 Output Total 850 850 Balance 50 150 Intake: Tube Feeding 700 750 Other 200 250 Output: Urine 850 850 Urethral (Baker) 850 850 Other: # Bowel Movements 1 1 - Medications Medications: Current Medications Aspirin (Aspirin) 325 mg PO DAILY [facility] Last Admin: 10/13/15 09:50 Dose: 325 mg Clopidogrel Bisulfate (Plavix) 75 mg PO DAILY [facility] Last Admin: 10/13/15 09:54 Dose: 75 mg Enoxaparin Sodium (Lovenox) 40 mg SC DAILY [facility] Last Admin: 10/13/15 10:08 Dose: 40 mg Lisinopril (Zestril) 5 mg PO DAILY [facility] Last Admin: 10/13/15 09:55 Dose: 5 mg Nystatin (Nystop Topical Powder) 1 applic TOP BID [facility] Last Admin: 10/13/15 18:24 Dose: 1 applic Petrolatum (Desitin Original) 0 gm TOP BID [facility] Last Admin: 10/13/15 18:23 Dose: 1 applic Phenytoin (Dilantin) 100 mg PEG TID [facility] Last Admin: 10/13/15 18:23 Dose: 100 mg Polyethylene Glycol (Miralax) 17 gm PEG BID [facility] Last Admin: 08/21/15 11:26 Dose: Not Given - Labs Labs (last 24 hours): Laboratory Results - last 24 hr 10/13/15 10/13/15 07:54 12:35 WBC 10.5 RBC 4.01 L Hgb 12.3 Hct 37.3 MCV 93.0 MCH 30.8 MCHC 33.1 RDW 14.4 Plt Count 339 MPV 8.2 Neut % (Auto) 54.7 Lymph % (Auto) 14.2 L [place] % (Auto) 8.6 Eos % (Auto) 22.0 H Baso % (Auto) 0.5 Neut # 5.7 Lymph # 1.5 [place] # 0.9 H Eos # 2.3 H Baso # 0.1 Neutrophils % (Manual) 48 L Lymphocytes % (Manual) 14 L Monocytes % (Manual) 11 H Eosinophils % (Manual) 27 H Platelet Estimate Normal RBC Morphology Normal pCO2 37.0 pO2 147.0 H HCO3 28.2 H* ABG pH 7.490 H ABG Total CO2 29.3 H ABG O2 Saturation 99.0 ABG Base Excess 4.7 H A-a O2 Difference 92.0 Spontaneous Rate 21.000 FiO2 40.000 Tidal Volume 365.000 Pressure Support 8.000 CPAP 5.000 Sodium 141 Potassium 4.2 Chloride 103 Carbon Dioxide 28 Anion Gap 14 BUN 19 Creatinine 0.4 L Est GFR ( Amer) > 60 Est GFR (Non-Af Amer) > 60 Random Glucose 128 H Calcium 9.1 Phosphorus 4.7 H Magnesium 2.2 Total Bilirubin 0.3 AST 34 ALT 70 Alkaline Phosphatase 109 Total Protein 7.4 Albumin 3.4 L Globulin 4.0 H Albumin/Globulin Ratio 0.9 L - Constitutional Appears: No Acute Distress - Head Exam Head Exam: NORMAL INSPECTION - ENT Exam ENT Exam: Mucous Membranes Dry - Neck Exam Additional comments: trach collar - Respiratory Exam Respiratory Exam: Clear to PA & Lateral. absent: Rales, Rhonchi, Wheezes - Cardiovascular Exam Cardiovascular Exam: REGULAR RHYTHM, +S1, +S2 - GI/Abdominal Exam GI & Abdominal Exam: Normal Bowel Sounds, Soft. absent: Organomegaly, Tenderness - Extremities Exam Extremities exam: pedal pulses present. absent: pedal edema, tenderness - Neurological Exam Neurological exam: absent: Alert, Oriented x3 - Psychiatric Exam Psychiatric exam: absent: Normal Affect - Skin Skin Exam: Normal Color, Warm Assessment/Plan (1) Leukocytosis Current Visit: Yes Status: Acute Comment: 10/14: -Resolved, WBC=10.5 today 10/13: -last WBC on 10/11 was 13.1 -patient afebrile but does have sacral bed sore -consider CXR if pt becomes febrile -f/u WBC today 09/20: WBC 10.7; will f/u CBC on 09/25: WBC increased from to 17.2. replace baker catheter and f/u urine culture , urinalysis. f/u CXR in AM CXR - no active disease Monitor temperature Afebrile IV Cefepime 1gm q12h started 07/21 Monitor (2) Bed sore Current Visit: Yes Status: Acute Comment: 10/12--> cont LWC as per Plastic and Wound care team 10/10: Wound care recommendations: SensiCare to buttocks around ulcer, MediHoney to necrotic tissue, Position Q2 hours, Recall when necrotic tissue is soft/loose for debridement 10/09: sacral ulcer, stage [address] Panchal consulted, f/u recommendations 08/09- stage one ulcer, healed, per nursing. continue repositioning of patient q2H dolphin mattress (3) Chest congestion Current Visit: Yes Status: Acute Comment: 09/29: lungs clear 09/25: Lungs clear 09/24: Lungs clear to auscultation 09/23: Lungs CTA 09/22: lungs CTA bilaterally 09/21: Lungs clear bilaterally. 09/15: No change 09/14: Clear to auscultation. No acute distress. 09/12: CXR on 09/12 shows no changes. 09/09: No acute distress. Afebrile. 09/08: Not using accesory muscles. Afebrile. Sputum culture (07/28/15) with Pseudomonas aeruginosa s/p treatment Dr. Armstrong on case-following. (4) Thrombophlebitis of superficial veins of upper extremities Current Visit: Yes Status: Acute Comment: Venous doppler (07/19) prelim report - thrombosis of right cephalic vein (superficial) Shows Abnormality Lovenox 40mg SC daily Warm compresses to area 15 minutes, 3x a day f/u final venous doppler report (5) Edema of upper extremity Current Visit: Yes Status: Acute Comment: Continue warm compresses Venous doppler (07/19) showed superficial thrombosis of right cephalic vein. ( see official report). Monitor (6) Anoxic encephalopathy Current Visit: Yes Status: Acute Comment: On breathing vent, no changes. (7) Respiratory failure Current Visit: Yes Status: Acute Comment: 10/12--> cont vent mx as per Pulm, unable to wean 10/06: no rhonchi or rales auscultated. lasix 40mg IVP once given yesterday. CXR - patchy right basilar airspace opacity with granulomatous changes in the left upper lobe and pleural thickening 10/05: rhonchi auscultated. considering CXR 10/04: fluids were added to decrease LFTs 09/27. D/C fluids today Patient is vent dependent. Dr. Salgado (pul) on case-help appreciated Continue patient on trach SIMV. Patient is vent dependent. Unable to wean at this time. Monitor (8) Transaminitis Current Visit: Yes Status: Acute Comment: F/u CMP on Mondays and labs 10/04: AST 54, ALT 109, ALP 11, tbili 0.2 improving D/C fluids 10/01: tbili 0.3, AST 48, ALT 128, ALP 112 decreasing 09/27: AST 87, ALT 227, ALP 117, tbili 0.4 Dilantin level 10.4 started D5-1/2NS @ 50cc/hr 09/24: AST 140, ALT 209, alk phos 100. Increasing LFTs. 09/20: AST 49 , ALT 83 and Alk phos 97. Stable. 09/18: AST 42 , ALT 95 and Alk phos 117. Stable. 09/17: AST 50, AUS883 and Alk phos 112. Stable. 09/14: AST 51, ALT 107 and AlK phos 118. Stable. 09/12: AST 49, ALT 99 and AlK phos 115. Improved. Recheck Q4days. Hep panel negative Continue to monitor LFTs (9) Cardiac arrest Current Visit: Yes Status: Acute Comment: s/p V-Tach arrest Continue Plavix 75mg PO daily Continue ASA 325mg PO daily Continue Lisinopril 5mg PO daily (10) STEMI (ST elevation myocardial infarction) Current Visit: Yes Status: Acute Comment: cardiac stents on 06/13/15. Continue Lisinopril 5mg PO daily Continue Plavix 75mg PO daily Continue ASA 325mg PO daily (11) Seizures Current Visit: Yes Status: Acute Comment: 10/06: no seizure activity noted 10/05: no seizure activity 10/04: no seizure activity observed 10/03: no seizure activity observed 10/02: continue current amangement 10/01: no seixure activity observed. continue dilantin 09/29: continue current management 09/27: no seizure activity observed 09/26: continue current management 09/25: No seizure activity observed dilantin level 10.4 09/24: No seizure activity observed. 09/23: No seizure activity reported or noted 09/22: Continue current management 09/21: No seizure activity observed. Continue to monitor. 09/09:Continue current management. 09/01: dilantin level 5.7, continue current management. 08/30--> repeat Dilantin level in am, cont meds, SZ precaution Continue dilantin 100mg via PEG TID Continue to monitor for seizure activity (12) Prophylactic measure Current Visit: Yes Status: Acute Comment: Lovenox 40 mg SQ daily SCDs Pepcid 20 mg BID <Rashel Rodrigues - Last Filed: 10/14/15 15:03> Objective - Vital Signs/Intake and Output Vital Signs (last 24 hours): Vital Signs - 24 hr 10/13/15 10/13/15 10/14/15 20:00 21:53 06:20 Temperature 98.7 F 99 F Pulse Rate 89 89 93 H Respiratory 20 14 Rate Blood Pressure 129/86 115/73 O2 Sat by Pulse 100 99 Oximetry 10/14/15 10/14/15 10:51 13:51 Temperature 98.7 F Pulse Rate 96 H 95 H Respiratory 18 20 Rate Blood Pressure 146/81 115/77 O2 Sat by Pulse 100 100 Oximetry Intake and Output (last 12 hours): Intake & Output 10/13/15 10/14/15 10/14/15 18:59 06:59 18:59 Intake Total 1900 Output Total 1250 400 Balance 650 -400 Intake: Tube Feeding 1450 Other 450 Output: Urine 1250 400 Urethral (Baker) 1250 400 Other: # Bowel Movements 0 - Medications Medications: Current Medications Aspirin (Aspirin) 325 mg PO DAILY [facility] Last Admin: 10/14/15 10:53 Dose: 325 mg Clopidogrel Bisulfate (Plavix) 75 mg PO DAILY [facility] Last Admin: 10/14/15 10:53 Dose: 75 mg Enoxaparin Sodium (Lovenox) 40 mg SC DAILY [facility] Last Admin: 10/14/15 10:53 Dose: 40 mg Lisinopril (Zestril) 5 mg PO DAILY [facility] Last Admin: 10/14/15 10:53 Dose: 5 mg Nystatin (Nystop Topical Powder) 1 applic TOP BID [facility] Last Admin: 10/14/15 10:53 Dose: 1 applic Petrolatum (Desitin Original) 0 gm TOP BID [facility] Last Admin: 10/14/15 10:54 Dose: 1 applic Phenytoin (Dilantin) 100 mg PEG TID [facility] Last Admin: 10/14/15 10:53 Dose: 100 mg Polyethylene Glycol (Miralax) 17 gm PEG BID [facility] Last Admin: 08/21/15 11:26 Dose: Not Given Assessment/Plan (1) Anoxic encephalopathy Current Visit: Yes Status: Acute Comment: On breathing vent, no changes. (2) STEMI (ST elevation myocardial infarction) Current Visit: Yes Status: Acute Comment: cardiac stents on 06/13/15. Continue Lisinopril 5mg PO daily Continue Plavix 75mg PO daily Continue ASA 325mg PO daily (3) Respiratory failure Current Visit: Yes Status: Acute Comment: 10/12--> cont vent mx as per Pulm, unable to wean 10/06: no rhonchi or rales auscultated. lasix 40mg IVP once given yesterday. CXR - patchy right basilar airspace opacity with granulomatous changes in the left upper lobe and pleural thickening 10/05: rhonchi auscultated. considering CXR 10/04: fluids were added to decrease LFTs 09/27. D/C fluids today Patient is vent dependent. Dr. Salgado (pulm) on case-help appreciated Continue patient on trach SIMV. Patient is vent dependent. Unable to wean at this time. Monitor (4) Seizures Current Visit: Yes Status: Acute Comment: 10/06: no seizure activity noted 10/05: no seizure activity 10/04: no seizure activity observed 10/03: no seizure activity observed 10/02: continue current amangement 10/01: no seixure activity observed. continue dilantin 09/29: continue current management 09/27: no seizure activity observed 09/26: continue current management 09/25: No seizure activity observed dilantin level 10.4 09/24: No seizure activity observed. 09/23: No seizure activity reported or noted 09/22: Continue current management 09/21: No seizure activity observed. Continue to monitor. 09/09:Continue current management. 09/01: dilantin level 5.7, continue current management. 08/30--> repeat Dilantin level in am, cont meds, SZ precaution Continue dilantin 100mg via PEG TID Continue to monitor for seizure activity (5) Prophylactic measure Current Visit: Yes Status: Acute Comment: Lovenox 40 mg SQ daily SCDs Pepcid 20 mg BID (6) Bed sore Current Visit: Yes Status: Acute Comment: 10/12--> cont LWC as per Plastic and Wound care team 10/10: Wound care recommendations: SensiCare to buttocks around ulcer, MediHoney to necrotic tissue, Position Q2 hours, Recall when necrotic tissue is soft/loose for debridement 10/09: sacral ulcer, stage [address] Panchal consulted, f/u recommendations 08/09- stage one ulcer, healed, per nursing. continue repositioning of patient q2H [facility] Attending/Attestation - Attestation I have personally seen and examined this patient.: Yes I have fully participated in the care of the patient.: Yes I have reviewed all pertinent clinical information: Yes Notes (Text): 10/14/15 14:58 Patient seen and examined during round with resident. pt was on C PAP weaning trial since yesterday and tolerated well. this pt was changed to T piece trial and toelrating well. DW Pulm DW Resp therapist Pt is on T Piece with no resp distress
[2015-10-14] MEDS: Phenytoin 100 mg/4 ml Oral Susp UD PEG SCH ×3 (10:53→19:09)
[2015-10-14] MEDS: Enoxaparin 40 mg Syringe SC SCH (10:53)
[2015-10-14] MEDS: Zinc Oxide Topical 30 gm Tube TOP SCH ×2 (10:54→19:09)
[2015-10-15 07:39] LABS: BASO # 0.1 K/uL (0.0-0.2); BASO % 0.6 % (0.0-2.0); EOS % 18.9 % (0.0-4.0); HEMOGLOBIN 12.5 g/dL (12.0-18.0); LYMPH # 1.6 K/uL (1.0-4.3); LYMPH % 14.9 % (20.0-40.0); MEAN CELL VOLUME 93.4 fL (80.0-94.0); MEAN CORPUSCULAR HGB CONC 33.2 g/dL (33.0-37.0); MEAN PLATELET VOLUME 8.2 fL (7.2-11.7); MONO % 9.3 % (0.0-10.0); NEUT # 5.9 K/uL (1.8-7.0); NEUT % 56.3 % (50.0-75.0); RBC 4.03 Mil/uL (4.40-5.90); RED CELL DISTRIBUTION WIDTH 14.5 % (11.5-14.5); WHITE BLOOD COUNT 10.5 K/uL (4.8-10.8)
[2015-10-15 08:02] LABS: ALBUMIN 3.3 g/dL (3.5-5.0)
[2015-10-15 08:05] LABS: ALB/GLOB RATIO 0.8 (1.0-2.1); ALT/SGPT 62 U/L (21-72); AST/SGOT 30 U/L (17-59); BLOOD UREA NITROGEN 23 mg/dL (9-20); GFR NON-AFRICAN AMERICAN > 60
[2015-10-15 08:06] LABS: CALCIUM 8.9 mg/dL (8.4-10.2)
--- NOTE | 2015-10-15 08:36 | CP.PCM.PN ---
<LeylaYesenia - Last Filed: 10/15/15 13:18> Subjective - Subjective Subjective: PGY1 Medicine Note / Dr. Demetrice Ying Service: No acute changes overnight per nursing. Patient apahsic secondary to anoxic brain injury. Awake, but not responding to verbal or painful stimuli. Review of Systems - Review of Systems Systems not reviewed;Unavailable: Altered Mental Status Objective - Vital Signs/Intake and Output Vital Signs (last 24 hours): Vital Signs - 24 hr 10/14/15 10/14/15 10/14/15 10:51 13:51 20:00 Temperature 98.7 F Pulse Rate 96 H 95 H 80 Respiratory 18 20 Rate Blood Pressure 146/81 115/77 O2 Sat by Pulse 100 100 Oximetry 10/14/15 10/15/15 10/15/15 21:00 05:51 08:30 Temperature 98.0 F 98.1 F Pulse Rate 80 87 87 Respiratory 16 20 Rate Blood Pressure 113/78 129/66 O2 Sat by Pulse 100 99 Oximetry Intake and Output (last 12 hours): Intake & Output 10/14/15 10/15/15 10/15/15 18:59 06:59 18:59 Intake Total 1900 Output Total 400 0 Balance -400 -150 Intake: Tube Feeding 1450 Other 450 Output: Urine 400 0 Urethral (Baker) 400 2049 Other: # Bowel Movements 0 - Medications Medications: Current Medications Aspirin (Aspirin) 325 mg PO DAILY [facility] Last Admin: 10/14/15 10:53 Dose: 325 mg Clopidogrel Bisulfate (Plavix) 75 mg PO DAILY [facility] Last Admin: 10/14/15 10:53 Dose: 75 mg Enoxaparin Sodium (Lovenox) 40 mg SC DAILY [facility] Last Admin: 10/14/15 10:53 Dose: 40 mg Lisinopril (Zestril) 5 mg PO DAILY [facility] Last Admin: 10/14/15 10:53 Dose: 5 mg Nystatin (Nystop Topical Powder) 1 applic TOP BID [facility] Last Admin: 10/14/15 19:10 Dose: 1 applic Petrolatum (Desitin Original) 0 gm TOP BID [facility] Last Admin: 10/14/15 19:09 Dose: 1 applic Phenytoin (Dilantin) 100 mg PEG TID [facility] Last Admin: 10/14/15 19:09 Dose: 100 mg Polyethylene Glycol (Miralax) 17 gm PEG BID [facility] Last Admin: 08/21/15 11:26 Dose: Not Given - Labs Labs (last 24 hours): Laboratory Results - last 24 hr 10/15/15 07:17 WBC 10.5 RBC 4.03 L Hgb 12.5 Hct 37.6 MCV 93.4 MCH 31.0 MCHC 33.2 RDW 14.5 Plt Count 334 MPV 8.2 Neut % (Auto) 56.3 Lymph % (Auto) 14.9 L [place] % (Auto) 9.3 Eos % (Auto) 18.9 H Baso % (Auto) 0.6 Neut # 5.9 Lymph # 1.6 [place] # 1.0 H Eos # 2.0 H Baso # 0.1 Sodium 141 Potassium 4.0 Chloride 102 Carbon Dioxide 30 Anion Gap 13 BUN 23 H Creatinine 0.4 L Est GFR ( Amer) > 60 Est GFR (Non-Af Amer) > 60 Random Glucose 120 H Calcium 8.9 Phosphorus 3.7 Magnesium 2.2 Total Bilirubin 0.2 AST 30 ALT 62 Alkaline Phosphatase 106 Total Protein 7.2 Albumin 3.3 L Globulin 3.9 Albumin/Globulin Ratio 0.8 L - Constitutional Appears: No Acute Distress - Head Exam Head Exam: NORMAL INSPECTION - Neck Exam Additional comments: on trach collar - Respiratory Exam Respiratory Exam: Clear to PA & Lateral. absent: Rales, Rhonchi, Wheezes - Cardiovascular Exam Cardiovascular Exam: REGULAR RHYTHM, +S1, +S2 - GI/Abdominal Exam GI & Abdominal Exam: Normal Bowel Sounds, Soft. absent: Organomegaly, Tenderness - Extremities Exam Extremities exam: pedal pulses present. absent: pedal edema, tenderness - Neurological Exam Neurological exam: Alert. absent: Oriented x3 - Psychiatric Exam Psychiatric exam: absent: Normal Affect - Skin Skin Exam: Normal Color, Warm Assessment/Plan (1) Leukocytosis Current Visit: Yes Status: Acute Comment: 10/14: -Resolved, WBC=10.5 today 10/13: -last WBC on 10/11 was 13.1 -patient afebrile but does have sacral bed sore -consider CXR if pt becomes febrile -f/u WBC today 09/20: WBC 10.7; will f/u CBC on 09/25: WBC increased from to 17.2. replace baker catheter and f/u urine culture , urinalysis. f/u CXR in AM CXR - no active disease Monitor temperature Afebrile IV Cefepime 1gm q12h started 07/21 Monitor (2) Bed sore Current Visit: Yes Status: Acute Comment: 10/12--> cont LWC as per Plastic and Wound care team 10/10: Wound care recommendations: SensiCare to buttocks around ulcer, MediHoney to necrotic tissue, Position Q2 hours, Recall when necrotic tissue is soft/loose for debridement 10/09: sacral ulcer, stage [address] Panchal consulted, f/u recommendations 08/09- stage one ulcer, healed, per nursing. continue repositioning of patient q2H dolphin mattress (3) Chest congestion Current Visit: Yes Status: Acute Comment: 09/29: lungs clear 09/25: Lungs clear 09/24: Lungs clear to auscultation 09/23: Lungs CTA 09/22: lungs CTA bilaterally 09/21: Lungs clear bilaterally. 09/15: No change 09/14: Clear to auscultation. No acute distress. 09/12: CXR on 09/12 shows no changes. 09/09: No acute distress. Afebrile. 09/08: Not using accesory muscles. Afebrile. Sputum culture (07/28/15) with Pseudomonas aeruginosa s/p treatment Dr. Armstrong on case-following. (4) Thrombophlebitis of superficial veins of upper extremities Current Visit: Yes Status: Acute Comment: Venous doppler (07/19) prelim report - thrombosis of right cephalic vein (superficial) Shows Abnormality Lovenox 40mg SC daily Warm compresses to area 15 minutes, 3x a day f/u final venous doppler report (5) Edema of upper extremity Current Visit: Yes Status: Acute Comment: Continue warm compresses Venous doppler (07/19) showed superficial thrombosis of right cephalic vein. ( see official report). Monitor (6) Anoxic encephalopathy Current Visit: Yes Status: Acute Comment: On breathing vent, no changes. (7) Respiratory failure Current Visit: Yes Status: Acute Comment: 10/12--> cont vent mx as per Pulm, unable to wean 10/06: no rhonchi or rales auscultated. lasix 40mg IVP once given yesterday. CXR - patchy right basilar airspace opacity with granulomatous changes in the left upper lobe and pleural thickening 10/05: rhonchi auscultated. considering CXR 10/04: fluids were added to decrease LFTs 09/27. D/C fluids today Patient is vent dependent. Dr. Salgado (pul) on case-help appreciated Continue patient on trach SIMV. Patient is vent dependent. Unable to wean at this time. Monitor (8) Transaminitis Current Visit: Yes Status: Acute Comment: F/u CMP on Mondays and labs 10/04: AST 54, ALT 109, ALP 11, tbili 0.2 improving D/C fluids 10/01: tbili 0.3, AST 48, ALT 128, ALP 112 decreasing 09/27: AST 87, ALT 227, ALP 117, tbili 0.4 Dilantin level 10.4 started D5-1/2NS @ 50cc/hr 09/24: AST 140, ALT 209, alk phos 100. Increasing LFTs. 09/20: AST 49 , ALT 83 and Alk phos 97. Stable. 09/18: AST 42 , ALT 95 and Alk phos 117. Stable. 09/17: AST 50, WSA120 and Alk phos 112. Stable. 09/14: AST 51, ALT 107 and AlK phos 118. Stable. 09/12: AST 49, ALT 99 and AlK phos 115. Improved. Recheck Q4days. Hep panel negative Continue to monitor LFTs (9) Cardiac arrest Current Visit: Yes Status: Acute Comment: s/p V-Tach arrest Continue Plavix 75mg PO daily Continue ASA 325mg PO daily Continue Lisinopril 5mg PO daily (10) STEMI (ST elevation myocardial infarction) Current Visit: Yes Status: Acute Comment: cardiac stents on 06/13/15. Continue Lisinopril 5mg PO daily Continue Plavix 75mg PO daily Continue ASA 325mg PO daily (11) Seizures Current Visit: Yes Status: Acute Comment: 10/06: no seizure activity noted 10/05: no seizure activity 10/04: no seizure activity observed 10/03: no seizure activity observed 10/02: continue current amangement 10/01: no seixure activity observed. continue dilantin 09/29: continue current management 09/27: no seizure activity observed 09/26: continue current management 09/25: No seizure activity observed dilantin level 10.4 09/24: No seizure activity observed. 09/23: No seizure activity reported or noted 09/22: Continue current management 09/21: No seizure activity observed. Continue to monitor. 09/09:Continue current management. 09/01: dilantin level 5.7, continue current management. 08/30--> repeat Dilantin level in am, cont meds, SZ precaution Continue dilantin 100mg via PEG TID Continue to monitor for seizure activity (12) Prophylactic measure Current Visit: Yes Status: Acute Comment: Lovenox 40 mg SQ daily SCDs Pepcid 20 mg BID <StepanDonnell M - Last Filed: 10/15/15 16:37> Objective - Vital Signs/Intake and Output Vital Signs (last 24 hours): Vital Signs - 24 hr 10/14/15 10/14/15 10/15/15 20:00 21:00 05:51 Temperature 98.0 F 98.1 F Pulse Rate 80 80 87 Respiratory 16 20 Rate Blood Pressure 113/78 129/66 O2 Sat by Pulse 100 99 Oximetry 10/15/15 10/15/15 08:30 14:00 Temperature 98.4 F Pulse Rate 87 83 Respiratory 18 Rate Blood Pressure 117/79 O2 Sat by Pulse 99 Oximetry Intake and Output (last 12 hours): Intake & Output 10/14/15 10/15/15 10/15/15 18:59 06:59 18:59 Intake Total 1900 Output Total 400 2050 500 Balance -400 -150 -500 Intake: Tube Feeding 1450 Other 450 Output: Urine 400 2050 500 Urethral (Baker) 400 2050 500 Other: # Bowel Movements 0 - Medications Medications: Current Medications Aspirin (Aspirin) 325 mg PO DAILY [facility] Last Admin: 10/15/15 10:04 Dose: 325 mg Clopidogrel Bisulfate (Plavix) 75 mg PO DAILY [facility] Last Admin: 10/15/15 10:04 Dose: 75 mg Enoxaparin Sodium (Lovenox) 40 mg SC DAILY [facility] Last Admin: 10/15/15 10:04 Dose: 40 mg Lisinopril (Zestril) 5 mg PO DAILY [facility] Last Admin: 10/15/15 10:04 Dose: 5 mg Nystatin (Nystop Topical Powder) 1 applic TOP BID [facility] Last Admin: 11/23/15 10:04 Dose: 1 applic Petrolatum (Desitin Original) 0 gm TOP BID [facility] Last Admin: 10/15/15 10:04 Dose: 1 applic Phenytoin (Dilantin) 100 mg PEG TID [facility] Last Admin: 10/15/15 13:51 Dose: 100 mg Polyethylene Glycol (Miralax) 17 gm PEG BID [facility] Last Admin: 08/21/15 11:26 Dose: Not Given - Labs Labs (last 24 hours): Laboratory Results - last 24 hr 10/15/15 07:17 WBC 10.5 RBC 4.03 L Hgb 12.5 Hct 37.6 MCV 93.4 MCH 31.0 MCHC 33.2 RDW 14.5 Plt Count 334 MPV 8.2 Neut % (Auto) 56.3 Lymph % (Auto) 14.9 L [place] % (Auto) 9.3 Eos % (Auto) 18.9 H Baso % (Auto) 0.6 Neut # 5.9 Lymph # 1.6 [place] # 1.0 H Eos # 2.0 H Baso # 0.1 Sodium 141 Potassium 4.0 Chloride 102 Carbon Dioxide 30 Anion Gap 13 BUN 23 H Creatinine 0.4 L Est GFR ( Amer) > 60 Est GFR (Non-Af Amer) > 60 Random Glucose 120 H Calcium 8.9 Phosphorus 3.7 Magnesium 2.2 Total Bilirubin 0.2 AST 30 ALT 62 Alkaline Phosphatase 106 Total Protein 7.2 Albumin 3.3 L Globulin 3.9 Albumin/Globulin Ratio 0.8 L Attending/Attestation - Attestation I have personally seen and examined this patient.: Yes I have fully participated in the care of the patient.: Yes I have reviewed all pertinent clinical information: Yes Notes (Text): 10/15/15 16:36 Patient seen and examined at bedside with the resident. Weaning trial in progress. Patient on T-tube trial. Tolerating well. Continue current management.
[2015-10-15] MEDS: Enoxaparin 40 mg Syringe SC SCH (10:04)
[2015-10-15] MEDS: Phenytoin 100 mg/4 ml Oral Susp UD PEG SCH ×3 (10:04→17:16)
[2015-10-15] MEDS: Zinc Oxide Topical 30 gm Tube TOP SCH ×2 (10:04→17:17)
[2015-10-16] MEDS: Enoxaparin 40 mg Syringe SC SCH (09:50)
[2015-10-16] MEDS: Zinc Oxide Topical 30 gm Tube TOP SCH (09:51)
[2015-10-16] MEDS: Phenytoin 100 mg/4 ml Oral Susp UD PEG SCH ×3 (09:51→17:13)
--- NOTE | 2015-10-16 16:52 | CP.PCM.PN ---
<Yesenia Mayer - Last Filed: 10/16/15 16:49> Subjective - Subjective Subjective: PGY1 Medicine Note / Dr. Demetrice Ying Service: No acute changes overnight per nursing. Continues to be apahsic secondary to anoxic brain injury. Sleeping comfortably in bed and not responding to verbal or painful stimuli. I was not able to examine sacral wound myself today, but as per nursing, wound appears the same and the fungal rash seems to be clearing. Wound care is following the patient. Patient is on trach collar and tolerating well. Review of Systems - Review of Systems Systems not reviewed;Unavailable: Altered Mental Status Objective - Vital Signs/Intake and Output Vital Signs (last 24 hours): Vital Signs - 24 hr 10/15/15 10/15/15 10/16/15 20:00 21:00 06:22 Temperature 98.0 F 97.8 F Pulse Rate 83 89 116 H Respiratory 16 18 Rate Blood Pressure 129/81 126/68 O2 Sat by Pulse 100 100 Oximetry 10/16/15 10/16/15 10:48 13:17 Temperature 98 F Pulse Rate 95 H 105 H Respiratory 20 Rate Blood Pressure 145/84 O2 Sat by Pulse 99 Oximetry Intake and Output (last 12 hours): Intake & Output 10/15/15 10/16/15 10/16/15 18:59 06:59 18:59 Intake Total 1200 900 Output Total 500 1550 Balance 700 -650 Intake: Tube Feeding 800 700 Other 400 200 Output: Urine 500 1550 Urethral (Baker) 500 1550 Other: # Bowel Movements 1 - Medications Medications: Current Medications Aspirin (Aspirin) 325 mg PO DAILY [facility] Last Admin: 10/16/15 09:50 Dose: 325 mg Clopidogrel Bisulfate (Plavix) 75 mg PO DAILY [facility] Last Admin: 10/16/15 09:50 Dose: 75 mg Enoxaparin Sodium (Lovenox) 40 mg SC DAILY [facility] Last Admin: 10/16/15 09:50 Dose: 40 mg Lisinopril (Zestril) 5 mg PO DAILY [facility] Last Admin: 10/16/15 09:50 Dose: 5 mg Phenytoin (Dilantin) 100 mg PEG TID [facility] Last Admin: 10/16/15 13:47 Dose: 100 mg Polyethylene Glycol (Miralax) 17 gm PEG BID [facility] Last Admin: 08/21/15 11:26 Dose: Not Given - Constitutional Appears: No Acute Distress - Head Exam Head Exam: NORMAL INSPECTION - Eye Exam Eye Exam: EOMI - ENT Exam ENT Exam: Mucous Membranes Moist - Neck Exam Additional comments: trach collar - Respiratory Exam Respiratory Exam: Clear to PA & Lateral. absent: Rales, Rhonchi, Wheezes - Cardiovascular Exam Cardiovascular Exam: REGULAR RHYTHM, +S1, +S2 - GI/Abdominal Exam GI & Abdominal Exam: Normal Bowel Sounds, Soft. absent: Organomegaly, Tenderness - Extremities Exam Extremities exam: pedal pulses present. absent: pedal edema, tenderness - Neurological Exam Neurological exam: absent: Alert, Oriented x3 - Psychiatric Exam Psychiatric exam: absent: Normal Affect - Skin Skin Exam: Normal Color, Warm Assessment/Plan (1) Leukocytosis Current Visit: Yes Status: Acute Comment: 10/16: -f/u blood work on 10/22 10/14: -Resolved, WBC=10.5 today 10/13: -last WBC on 10/11 was 13.1 -patient afebrile but does have sacral bed sore -consider CXR if pt becomes febrile -f/u WBC today 09/20: WBC 10.7; will f/u CBC on 09/25: WBC increased from to 17.2. replace baker catheter and f/u urine culture , urinalysis. f/u CXR in AM CXR - no active disease Monitor temperature Afebrile IV Cefepime 1gm q12h started 07/21 Monitor (2) Bed sore Current Visit: Yes Status: Acute Comment: 10/12--> cont LWC as per Plastic and Wound care team 10/10: Wound care recommendations: SensiCare to buttocks around ulcer, MediHoney to necrotic tissue, Position Q2 hours, Recall when necrotic tissue is soft/loose for debridement 10/09: sacral ulcer, stage [address] Panchal consulted, f/u recommendations 08/09- stage one ulcer, healed, per nursing. continue repositioning of patient q2H dolphin mattress (3) Chest congestion Current Visit: Yes Status: Acute Comment: 10/16: lungs clear 09/29: lungs clear 09/25: Lungs clear 09/24: Lungs clear to auscultation 09/23: Lungs CTA 09/22: lungs CTA bilaterally 09/21: Lungs clear bilaterally. 09/15: No change 09/14: Clear to auscultation. No acute distress. 09/12: CXR on 09/12 shows no changes. 09/09: No acute distress. Afebrile. 09/08: Not using accesory muscles. Afebrile. Sputum culture (07/28/15) with Pseudomonas aeruginosa s/p treatment Dr. Armstrong on case-following. (4) Thrombophlebitis of superficial veins of upper extremities Current Visit: Yes Status: Acute Comment: Venous doppler (07/19) prelim report - thrombosis of right cephalic vein (superficial) Shows Abnormality Lovenox 40mg SC daily Warm compresses to area 15 minutes, 3x a day f/u final venous doppler report (5) Edema of upper extremity Current Visit: Yes Status: Acute Comment: Continue warm compresses Venous doppler (07/19) showed superficial thrombosis of right cephalic vein. ( see official report). Monitor (6) Anoxic encephalopathy Current Visit: Yes Status: Acute Comment: On breathing vent, no changes. (7) Respiratory failure Current Visit: Yes Status: Acute Comment: 10/16: patient on trach collar, tolerating well. 10/12--> cont vent mx as per Pulm, unable to wean 10/06: no rhonchi or rales auscultated. lasix 40mg IVP once given yesterday. CXR - patchy right basilar airspace opacity with granulomatous changes in the left upper lobe and pleural thickening 10/05: rhonchi auscultated. considering CXR 10/04: fluids were added to decrease LFTs 09/27. D/C fluids today Patient is vent dependent. Dr. Salgado (pul) on case-help appreciated Continue patient on trach SIMV. Patient is vent dependent. Unable to wean at this time. Monitor (8) Transaminitis Current Visit: Yes Status: Acute Comment: 10/15: LFT's WNL F/u CMP on Mondays and labs 10/04: AST 54, ALT 109, ALP 11, tbili 0.2 improving D/C fluids 10/01: tbili 0.3, AST 48, ALT 128, ALP 112 decreasing 09/27: AST 87, ALT 227, ALP 117, tbili 0.4 Dilantin level 10.4 started D5-1/2NS @ 50cc/hr 09/24: AST 140, ALT 209, alk phos 100. Increasing LFTs. 09/20: AST 49 , ALT 83 and Alk phos 97. Stable. 09/18: AST 42 , ALT 95 and Alk phos 117. Stable. 09/17: AST 50, [id number] and Alk phos 112. Stable. 09/14: AST 51, ALT 107 and AlK phos 118. Stable. 09/12: AST 49, ALT 99 and AlK phos 115. Improved. Recheck Q4days. Hep panel negative Continue to monitor LFTs (9) Cardiac arrest Current Visit: Yes Status: Acute Comment: s/p V-Tach arrest Continue Plavix 75mg PO daily Continue ASA 325mg PO daily Continue Lisinopril 5mg PO daily (10) STEMI (ST elevation myocardial infarction) Current Visit: Yes Status: Acute Comment: cardiac stents on 06/13/15. Continue Lisinopril 5mg PO daily Continue Plavix 75mg PO daily Continue ASA 325mg PO daily (11) Seizures Current Visit: Yes Status: Acute Comment: 10/16: no new seizures noted 10/06: no seizure activity noted 10/05: no seizure activity 10/04: no seizure activity observed 10/03: no seizure activity observed 10/02: continue current amangement 10/01: no seixure activity observed. continue dilantin 09/29: continue current management 09/27: no seizure activity observed 09/26: continue current management 09/25: No seizure activity observed dilantin level 10.4 09/24: No seizure activity observed. 09/23: No seizure activity reported or noted 09/22: Continue current management 09/21: No seizure activity observed. Continue to monitor. 09/09:Continue current management. 09/01: dilantin level 5.7, continue current management. 08/30--> repeat Dilantin level in am, cont meds, SZ precaution Continue dilantin 100mg via PEG TID Continue to monitor for seizure activity (12) Prophylactic measure Current Visit: Yes Status: Acute Comment: Lovenox 40 mg SQ daily SCDs Pepcid 20 mg BID <Donnell Ying M - Last Filed: 10/16/15 17:08> Objective - Vital Signs/Intake and Output Vital Signs (last 24 hours): Vital Signs - 24 hr 1110/15/15 10/16/15 20:00 21:00 06:22 Temperature 98.0 F 97.8 F Pulse Rate 83 89 116 H Respiratory 16 18 Rate Blood Pressure 129/81 126/68 O2 Sat by Pulse 100 100 Oximetry 10/16/15 10/16/15 10:48 13:17 Temperature 98 F Pulse Rate 95 H 105 H Respiratory 20 Rate Blood Pressure 145/84 O2 Sat by Pulse 99 Oximetry Intake and Output (last 12 hours): Intake & Output 10/15/15 10/16/15 10/16/15 18:59 06:59 18:59 Intake Total 1200 900 Output Total 500 1550 Balance 700 -650 Intake: Tube Feeding 800 700 Other 400 200 Output: Urine 500 1550 Urethral (Baker) 500 1550 Other: # Bowel Movements 1 - Medications Medications: Current Medications Aspirin (Aspirin) 325 mg PO DAILY [facility] Last Admin: 10/16/15 09:50 Dose: 325 mg Clopidogrel Bisulfate (Plavix) 75 mg PO DAILY [facility] Last Admin: 10/16/15 09:50 Dose: 75 mg Enoxaparin Sodium (Lovenox) 40 mg SC DAILY [facility] Last Admin: 10/16/15 09:50 Dose: 40 mg Lisinopril (Zestril) 5 mg PO DAILY [facility] Last Admin: 10/16/15 09:50 Dose: 5 mg Phenytoin (Dilantin) 100 mg PEG TID [facility] Last Admin: 10/16/15 13:47 Dose: 100 mg Polyethylene Glycol (Miralax) 17 gm PEG BID [facility] Last Admin: 08/21/15 11:26 Dose: Not Given Attending/Attestation - Attestation I have personally seen and examined this patient.: Yes I have fully participated in the care of the patient.: Yes I have reviewed all pertinent clinical information: Yes Notes (Text): 10/16/15 17: 07 Patient seen and examined at bedside with the residents earlier today. He is off the ventilator and on trach collar. No change in mental status. Continue current management.
[2015-10-17] MEDS: Phenytoin 100 mg/4 ml Oral Susp UD PEG SCH ×3 (10:02→17:50)
[2015-10-17] MEDS: Enoxaparin 40 mg Syringe SC SCH (10:03)
--- NOTE | 2015-10-17 13:04 | CP.PCM.PN ---
<Yesenia Mayer - Last Filed: 10/17/15 13:01> Subjective - Subjective Subjective: PGY-1 note - Dr. Demetrice Ying's service Pt was seen and examined at bedside. Pt is awake, but aphasic. He still does not respond to physical stimuli. No events overnight as per nursing. Has unstageable sacral ulcer, he is being followed by wound care. Review of Systems - Review of Systems Systems not reviewed;Unavailable: Altered Mental Status Objective - Vital Signs/Intake and Output Vital Signs (last 24 hours): Vital Signs - 24 hr 10/16/15 10/16/15 10/16/15 13:17 20:15 22:07 Temperature 98 F 97.6 F Pulse Rate 105 H 105 H 90 Respiratory 20 19 Rate Blood Pressure 145/84 120/82 O2 Sat by Pulse 99 100 Oximetry 10/17/15 10/17/15 06:32 10:17 Temperature 98.4 F Pulse Rate 88 88 Respiratory 18 Rate Blood Pressure 146/78 O2 Sat by Pulse 78 L Oximetry Intake and Output (last 12 hours): Intake & Output 10/16/15 10/17/15 10/17/15 18:59 06:59 18:59 Intake Total 1200 Output Total 600 1000 Balance 600 -1000 Intake: Tube Feeding 800 Other 400 Output: Urine 600 1000 Urethral (Baker) 600 1000 Other: # Bowel Movements 1 2 - Medications Medications: Current Medications Enoxaparin Sodium (Lovenox) 40 mg SC DAILY [facility] Last Admin: 10/17/15 10:03 Dose: 40 mg Lisinopril (Zestril) 5 mg PO DAILY [facility] Last Admin: 10/17/15 10:03 Dose: 5 mg Phenytoin (Dilantin) 100 mg PEG TID [facility] Last Admin: 10/17/15 10:02 Dose: 100 mg Polyethylene Glycol (Miralax) 17 gm PEG BID [facility] Last Admin: 08/21/15 11:26 Dose: Not Given - Constitutional Appears: No Acute Distress - Head Exam Head Exam: NORMAL INSPECTION - ENT Exam ENT Exam: Mucous Membranes Moist - Neck Exam Additional comments: trach collar - Respiratory Exam Respiratory Exam: Clear to PA & Lateral. absent: Rales, Rhonchi, Wheezes - Cardiovascular Exam Cardiovascular Exam: REGULAR RHYTHM, +S1, +S2 - GI/Abdominal Exam GI & Abdominal Exam: Normal Bowel Sounds, Soft. absent: Organomegaly, Tenderness - Extremities Exam Extremities exam: pedal pulses present. absent: pedal edema, tenderness - Neurological Exam Neurological exam: Alert. absent: Oriented x3 - Psychiatric Exam Psychiatric exam: absent: Normal Affect - Skin Skin Exam: Normal Color, Warm Assessment/Plan (1) Leukocytosis Current Visit: Yes Status: Acute Comment: 10/17: -f/u blood work on 10/22 10/14: -Resolved, WBC=10.5 today 10/13: -last WBC on 10/11 was 13.1 -patient afebrile but does have sacral bed sore -consider CXR if pt becomes febrile -f/u WBC today 09/20: WBC 10.7; will f/u CBC on 09/25: WBC increased from to 17.2. replace baker catheter and f/u urine culture , urinalysis. f/u CXR in AM CXR - no active disease Monitor temperature Afebrile IV Cefepime 1gm q12h started 07/21 Monitor (2) Bed sore Current Visit: Yes Status: Acute Comment: 10/12--> cont LWC as per Plastic and Wound care team 10/10: Wound care recommendations: SensiCare to buttocks around ulcer, MediHoney to necrotic tissue, Position Q2 hours, Recall when necrotic tissue is soft/loose for debridement 10/09: sacral ulcer, stage [address] aPnchal consulted, f/u recommendations 08/09- stage one ulcer, healed, per nursing. continue repositioning of patient q2H dolphin mattress (3) Chest congestion Current Visit: Yes Status: Acute Comment: 10/17: lungs clear 09/12: CXR on 09/12 shows no changes. Sputum culture (07/28/15) with Pseudomonas aeruginosa Dr. Armstrong on case-following. (4) Thrombophlebitis of superficial veins of upper extremities Current Visit: Yes Status: Acute Comment: Venous doppler (07/19) prelim report - thrombosis of right cephalic vein (superficial) Shows Abnormality Lovenox 40mg SC daily Warm compresses to area 15 minutes, 3x a day f/u final venous doppler report (5) Edema of upper extremity Current Visit: Yes Status: Acute Comment: Continue warm compresses Venous doppler (07/19) showed superficial thrombosis of right cephalic vein. ( see official report). Monitor (6) Anoxic encephalopathy Current Visit: Yes Status: Acute Comment: 10/17: Weaned off vent, now satting well on trach collar (7) Respiratory failure Current Visit: Yes Status: Acute Comment: 10/16: patient on trach collar, tolerating well. 10/12--> cont vent mx as per Pulm, unable to wean 10/06: no rhonchi or rales auscultated. lasix 40mg IVP once given yesterday. CXR - patchy right basilar airspace opacity with granulomatous changes in the left upper lobe and pleural thickening 10/05: rhonchi auscultated. considering CXR 10/04: fluids were added to decrease LFTs 09/27. D/C fluids today Patient is vent dependent. Dr. Salgado (pul) on case-help appreciated Continue patient on trach SIMV. Patient is vent dependent. Unable to wean at this time. Monitor (8) Transaminitis Current Visit: Yes Status: Acute Comment: 10/15: LFT's WNL f/u on 10/22 F/u CMP on Mondays and labs 10/04: AST 54, ALT 109, ALP 11, tbili 0.2 improving D/C fluids 10/01: tbili 0.3, AST 48, ALT 128, ALP 112 decreasing 09/27: AST 87, ALT 227, ALP 117, tbili 0.4 Dilantin level 10.4 started D5-1/2NS @ 50cc/hr 09/24: AST 140, ALT 209, alk phos 100. Increasing LFTs. 09/20: AST 49 , ALT 83 and Alk phos 97. Stable. 09/18: AST 42 , ALT 95 and Alk phos 117. Stable. 09/17: AST 50, [id number] and Alk phos 112. Stable. 09/14: AST 51, ALT 107 and AlK phos 118. Stable. 09/12: AST 49, ALT 99 and AlK phos 115. Improved. Recheck Q4days. Hep panel negative Continue to monitor LFTs (9) Cardiac arrest Current Visit: Yes Status: Acute Comment: s/p V-Tach arrest Continue Plavix 75mg PO daily Continue ASA 325mg PO daily Continue Lisinopril 5mg PO daily (10) STEMI (ST elevation myocardial infarction) Current Visit: Yes Status: Acute Comment: cardiac stents on 06/13/15. Continue Lisinopril 5mg PO daily Continue Plavix 75mg PO daily Continue ASA 325mg PO daily (11) Seizures Current Visit: Yes Status: Acute Comment: 10/17: no new seizures noted 09/01: dilantin level 5.7, continue current management. 08/30--> repeat Dilantin level in am, cont meds, SZ precaution Continue dilantin 100mg via PEG TID Continue to monitor for seizure activity (12) Prophylactic measure Current Visit: Yes Status: Acute Comment: Lovenox 40 mg SQ daily [facility] <Carlos A Yingn M - Last Filed: 10/17/15 13:31> Objective - Vital Signs/Intake and Output Vital Signs (last 24 hours): Vital Signs - 24 hr 10/16/15 10/16/15 10/17/15 20:15 22:07 06:32 Temperature 97.6 F 98.4 F Pulse Rate 105 H 90 88 Respiratory 19 18 Rate Blood Pressure 120/82 146/78 O2 Sat by Pulse 100 78 L Oximetry 10/17/15 10:17 Temperature Pulse Rate 88 Respiratory Rate Blood Pressure O2 Sat by Pulse Oximetry Intake and Output (last 12 hours): Intake & Output 10/16/15 10/17/15 10/17/15 18:59 06:59 18:59 Intake Total 1200 Output Total 600 1000 Balance 600 -1000 Intake: Tube Feeding 800 Other 400 Output: Urine 600 1000 Urethral (Baker) 600 1000 Other: # Bowel Movements 1 2 - Medications Medications: Current Medications Enoxaparin Sodium (Lovenox) 40 mg SC DAILY [facility] Last Admin: 10/17/15 10:03 Dose: 40 mg Lisinopril (Zestril) 5 mg PO DAILY [facility] Last Admin: 10/17/15 10:03 Dose: 5 mg Phenytoin (Dilantin) 100 mg PEG TID [facility] Last Admin: 10/17/15 10:02 Dose: 100 mg Polyethylene Glycol (Miralax) 17 gm PEG BID [facility] Last Admin: 08/21/15 11:26 Dose: Not Given Attending/Attestation - Attestation I have personally seen and examined this patient.: Yes I have fully participated in the care of the patient.: Yes I have reviewed all pertinent clinical information: Yes Notes (Text): 10/17/15 13:30 Patient seen and examined at bedside with the resident during rounds. Patient is off the ventilator now on trach collar. Leukocytosis resolved. Continue current management.
--- NOTE | 2015-10-18 01:27 | CP.PCM.PN ---
Objective - Vital Signs/Intake and Output Vital Signs (last 24 hours): Vital Signs - 24 hr 10/17/15 10/17/15 10/17/15 06:32 10:17 13:33 Temperature 98.4 F 97.9 F Pulse Rate 88 88 87 Respiratory 18 18 Rate Blood Pressure 146/78 144/86 O2 Sat by Pulse 78 L 97 Oximetry 10/17/15 21:50 Temperature 97.5 F L Pulse Rate 99 H Respiratory 19 Rate Blood Pressure 112/76 O2 Sat by Pulse 100 Oximetry Intake and Output (last 12 hours): Intake & Output 10/17/15 10/17/15 10/18/15 06:59 18:59 06:59 Output Total 7398 610 5064 Balance -1000 -200 -1000 Output: Urine 4542 317 2831 Urethral (Baker) 8715 150 9558 Other: # Bowel Movements 2 - Medications Medications: Current Medications Enoxaparin Sodium (Lovenox) 40 mg SC DAILY [facility] Last Admin: 10/17/15 10:03 Dose: 40 mg Lisinopril (Zestril) 5 mg PO DAILY [facility] Last Admin: 10/17/15 10:03 Dose: 5 mg Phenytoin (Dilantin) 100 mg PEG TID [facility] Last Admin: 10/17/15 17:50 Dose: 100 mg Polyethylene Glycol (Miralax) 17 gm PEG BID [facility] Last Admin: 08/21/15 11:26 Dose: Not Given Assessment/Plan (1) Anoxic encephalopathy Current Visit: Yes Status: Acute Comment: 10/17: Weaned off vent, now satting well on trach collar (2) Leukocytosis Current Visit: Yes Status: Acute Comment: 10/17: -f/u blood work on 10/22 10/14: -Resolved, WBC=10.5 today 10/13: -last WBC on 10/11 was 13.1 -patient afebrile but does have sacral bed sore -consider CXR if pt becomes febrile -f/u WBC today 09/20: WBC 10.7; will f/u CBC on 09/25: WBC increased from to 17.2. replace bkaer catheter and f/u urine culture , urinalysis. f/u CXR in AM CXR - no active disease Monitor temperature Afebrile IV Cefepime 1gm q12h started 07/21 Monitor (3) Respiratory failure Current Visit: Yes Status: Acute Comment: 10/16: patient on trach collar, tolerating well. 10/12--> cont vent mx as per Pulm, unable to wean 10/06: no rhonchi or rales auscultated. lasix 40mg IVP once given yesterday. CXR - patchy right basilar airspace opacity with granulomatous changes in the left upper lobe and pleural thickening 10/05: rhonchi auscultated. considering CXR 10/04: fluids were added to decrease LFTs 09/27. D/C fluids today Patient is vent dependent. Dr. Salgado (pul) on case-help appreciated Continue patient on trach SIMV. Patient is vent dependent. Unable to wean at this time. Monitor (4) STEMI (ST elevation myocardial infarction) Current Visit: Yes Status: Acute Comment: cardiac stents on 06/13/15. Continue Lisinopril 5mg PO daily Continue Plavix 75mg PO daily Continue ASA 325mg PO daily (5) CAD (coronary artery disease) Current Visit: Yes Status: Acute Comment: Continue Lisinopril 5mg PO daily Continue ASA 325mg PO daily Continue Plavix 75mg PO daily (6) Seizures Current Visit: Yes Status: Acute Comment: 10/17: no new seizures noted 09/01: dilantin level 5.7, continue current management. 08/30--> repeat Dilantin level in am, cont meds, SZ precaution Continue dilantin 100mg via PEG TID Continue to monitor for seizure activity (7) Prophylactic measure Current Visit: Yes Status: Acute Comment: Lovenox 40 mg SQ daily SCDs
--- NOTE | 2015-10-18 07:44 | CP.PCM.PN ---
<Yesenia Mayer - Last Filed: 10/18/15 15:07> Subjective - Subjective Subjective: PGY1 Medicine Note. dr. Demetrice Ying Service: Patient seen at bedside. Eyes open, awake, but continues to be aphasic secondary to anoxic brain injury. Patient moved left leg on bending of the left big toe but it is not clear whether it was a reflex reaction. As per nursing, no acute overnight events. Review of Systems - Review of Systems Systems not reviewed;Unavailable: Altered Mental Status Objective - Vital Signs/Intake and Output Vital Signs (last 24 hours): Vital Signs - 24 hr 10/17/15 10/17/15 10/17/15 10:17 13:33 21:50 Temperature 97.9 F 97.5 F L Pulse Rate 88 87 99 H Respiratory 18 19 Rate Blood Pressure 144/86 112/76 O2 Sat by Pulse 97 100 Oximetry 10/18/15 05:53 Temperature 97 F L Pulse Rate 99 H Respiratory 20 Rate Blood Pressure 114/74 O2 Sat by Pulse 99 Oximetry Intake and Output (last 12 hours): Intake & Output 10/17/15 10/18/15 10/18/15 18:59 06:59 18:59 Intake Total 600 Output Total 200 1600 800 Balance -200 -1600 -200 Intake: Other 600 Output: Urine 200 1600 800 Urethral (Baker) 200 1600 800 Other: # Bowel Movements 1 - Medications Medications: Current Medications Enoxaparin Sodium (Lovenox) 40 mg SC DAILY [facility] Last Admin: 10/17/15 10:03 Dose: 40 mg Lisinopril (Zestril) 5 mg PO DAILY [facility] Last Admin: 10/17/15 10:03 Dose: 5 mg Phenytoin (Dilantin) 100 mg PEG TID [facility] Last Admin: 10/17/15 17:50 Dose: 100 mg Polyethylene Glycol (Miralax) 17 gm PEG BID [facility] Last Admin: 08/21/15 11:26 Dose: Not Given - Constitutional Appears: No Acute Distress - Head Exam Head Exam: NORMAL INSPECTION - ENT Exam ENT Exam: Mucous Membranes Moist - Neck Exam Additional comments: trach collar - Respiratory Exam Respiratory Exam: Clear to PA & Lateral. absent: Rales, Rhonchi, Wheezes - Cardiovascular Exam Cardiovascular Exam: REGULAR RHYTHM, +S1, +S2 - GI/Abdominal Exam GI & Abdominal Exam: Normal Bowel Sounds, Soft. absent: Organomegaly, Tenderness - Extremities Exam Extremities exam: tenderness, pedal pulses present. absent: pedal edema - Neurological Exam Neurological exam: Alert. absent: Oriented x3 - Psychiatric Exam Psychiatric exam: absent: Normal Affect - Skin Skin Exam: Normal Color, Warm Assessment/Plan (1) Leukocytosis Current Visit: Yes Status: Acute Comment: 10/18: -f/u blood work on 10/22 10/14: -Resolved, WBC=10.5 today 10/13: -last WBC on 10/11 was 13.1 -patient afebrile but does have sacral bed sore -consider CXR if pt becomes febrile -f/u WBC today 09/20: WBC 10.7; will f/u CBC on 09/25: WBC increased from to 17.2. replace baker catheter and f/u urine culture , urinalysis. f/u CXR in AM CXR - no active disease Monitor temperature Afebrile IV Cefepime 1gm q12h started 07/21 Monitor (2) Bed sore Current Visit: Yes Status: Acute Comment: 10/12--> cont LWC as per Plastic and Wound care team 10/10: Wound care recommendations: SensiCare to buttocks around ulcer, MediHoney to necrotic tissue, Position Q2 hours, Recall when necrotic tissue is soft/loose for debridement 10/09: sacral ulcer, stage [address] Panchal consulted, f/u recommendations 08/09- stage one ulcer, healed, per nursing. continue repositioning of patient q2H dolphin mattress (3) Chest congestion Current Visit: Yes Status: Acute Comment: 10/18: lungs clear 09/12: CXR on 09/12 shows no changes. Sputum culture (07/28/15) with Pseudomonas aeruginosa Dr. Armstrong on case-following. (4) Thrombophlebitis of superficial veins of upper extremities Current Visit: Yes Status: Acute Comment: Venous doppler (07/19) prelim report - thrombosis of right cephalic vein (superficial) Shows Abnormality Lovenox 40mg SC daily Warm compresses to area 15 minutes, 3x a day Venous doppler (07/19) showed superficial thrombosis of right cephalic vein. ( see official report). (5) Edema of upper extremity Current Visit: Yes Status: Acute Comment: Continue warm compresses Venous doppler (07/19) showed superficial thrombosis of right cephalic vein. ( see official report). Monitor (6) Anoxic encephalopathy Current Visit: Yes Status: Acute Comment: 10/17: Weaned off vent, now satting well on trach collar (7) Respiratory failure Current Visit: Yes Status: Acute Comment: 10/16: patient on trach collar, tolerating well. 10/12--> cont vent mx as per Pulm, unable to wean 10/06: no rhonchi or rales auscultated. lasix 40mg IVP once given yesterday. CXR - patchy right basilar airspace opacity with granulomatous changes in the left upper lobe and pleural thickening 10/05: rhonchi auscultated. considering CXR 10/04: fluids were added to decrease LFTs 09/27. D/C fluids today Patient is vent dependent. Dr. Salgado (pul) on case-help appreciated Continue patient on trach SIMV. Patient is vent dependent. Unable to wean at this time. Monitor (8) Transaminitis Current Visit: Yes Status: Acute Comment: 10/15: LFT's WNL f/u on 10/22 F/u CMP on Mondays and labs 10/04: AST 54, ALT 109, ALP 11, tbili 0.2 improving D/C fluids 10/01: tbili 0.3, AST 48, ALT 128, ALP 112 decreasing 09/27: AST 87, ALT 227, ALP 117, tbili 0.4 Dilantin level 10.4 started D5-1/2NS @ 50cc/hr 09/24: AST 140, ALT 209, alk phos 100. Increasing LFTs. 09/20: AST 49 , ALT 83 and Alk phos 97. Stable. 09/18: AST 42 , ALT 95 and Alk phos 117. Stable. 09/17: AST 50, [id number] and Alk phos 112. Stable. 09/14: AST 51, ALT 107 and AlK phos 118. Stable. 09/12: AST 49, ALT 99 and AlK phos 115. Improved. Recheck Q4days. Hep panel negative Continue to monitor LFTs (9) Cardiac arrest Current Visit: Yes Status: Acute Comment: s/p V-Tach arrest Continue Plavix 75mg PO daily Continue ASA 325mg PO daily Continue Lisinopril 5mg PO daily (10) STEMI (ST elevation myocardial infarction) Current Visit: Yes Status: Acute Comment: cardiac stents on 06/13/15. Continue Lisinopril 5mg PO daily Continue Plavix 75mg PO daily Continue ASA 325mg PO daily (11) Seizures Current Visit: Yes Status: Acute Comment: 10/17: no new seizures noted 09/01: dilantin level 5.7, continue current management. 08/30--> repeat Dilantin level in am, cont meds, SZ precaution Continue dilantin 100mg via PEG TID Continue to monitor for seizure activity (12) Prophylactic measure Current Visit: Yes Status: Acute Comment: Lovenox 40 mg SQ daily [facility] <Donnell Ying M - Last Filed: 10/19/15 07:55> Objective - Vital Signs/Intake and Output Vital Signs (last 24 hours): Vital Signs - 24 hr 10/18/15 10/19/15 22:12 05:00 Temperature 98.2 F 98.9 F Pulse Rate 98 H 91 H Respiratory 18 16 Rate Blood Pressure 130/89 119/76 O2 Sat by Pulse 100 99 Oximetry Intake and Output (last 12 hours): Intake & Output 10/18/15 10/19/15 10/19/15 18:59 06:59 18:59 Intake Total 600 890 Output Total 800 700 Balance -200 190 Intake: Tube Feeding 690 Other 600 200 Output: Urine 800 700 Urethral (Baker) 800 700 Other: # Bowel Movements 1 - Medications Medications: Current Medications Enoxaparin Sodium (Lovenox) 40 mg SC DAILY [facility] Last Admin: 10/18/15 10:37 Dose: 40 mg Lisinopril (Zestril) 5 mg PO DAILY [facility] Last Admin: 10/18/15 10:37 Dose: 5 mg Phenytoin (Dilantin) 100 mg PEG TID [facility] Last Admin: 10/18/15 17:54 Dose: 100 mg Polyethylene Glycol (Miralax) 17 gm PEG BID [facility] Last Admin: 08/21/15 11:26 Dose: Not Given Attending/Attestation - Attestation I have personally seen and examined this patient.: Yes I have fully participated in the care of the patient.: Yes I have reviewed all pertinent clinical information: Yes Notes (Text): 10/19/15 07:54 Patient seen and examined at bedside with the resident. Doing well on current collar. Continue current management. Discussed with family at bedside.
[2015-10-18] MEDS: Phenytoin 100 mg/4 ml Oral Susp UD PEG SCH ×3 (10:37→17:54)
[2015-10-18] MEDS: Enoxaparin 40 mg Syringe SC SCH (10:37)
[2015-10-19] MEDS: Phenytoin 100 mg/4 ml Oral Susp UD PEG SCH ×3 (10:26→19:08)
[2015-10-19] MEDS: Enoxaparin 40 mg Syringe SC SCH (10:27)
--- NOTE | 2015-10-19 11:36 | CP.PCM.PN ---
<Yesenia Mayer - Last Filed: 10/19/15 11:33> Subjective - Subjective Subjective: PGY1 Medicine Note. dr. Demetrice Ying Service: Patient seen at bedside. Sleeping comfortably, in NAD. As per nursing, patient has thick secretions and is very difficult to suction. Duonebs and Mucomist were ordered. I examined his sacral wound today and there is no longer a black eschar there that I saw on last exam. Wound care is managing and treating with medihoney and sensicare. Review of Systems - Review of Systems Systems not reviewed;Unavailable: Altered Mental Status Objective - Vital Signs/Intake and Output Vital Signs (last 24 hours): Vital Signs - 24 hr 10/18/15 10/19/15 10/19/15 22:12 05:00 10:28 Temperature 98.2 F 98.9 F 98.3 F Pulse Rate 98 H 91 H 100 H Respiratory 18 16 20 Rate Blood Pressure 130/89 119/76 116/78 O2 Sat by Pulse 100 99 98 Oximetry Intake and Output (last 12 hours): Intake & Output 10/18/15 10/19/15 10/19/15 18:59 06:59 18:59 Intake Total 600 890 Output Total 800 700 Balance -200 190 Intake: Tube Feeding 690 Other 600 200 Output: Urine 800 700 Urethral (Baker) 800 700 Other: # Bowel Movements 1 - Medications Medications: Current Medications Acetylcysteine (Acetylcysteine 20%) 3 ml INH RQ6 JOO Albuterol/Ipratropium (Duoneb 3 Mg/0.5 Mg (3 Ml) Ud) 3 ml INH RQ6 JOO Enoxaparin Sodium (Lovenox) 40 mg SC DAILY [facility] Last Admin: 10/19/15 10:27 Dose: 40 mg Lisinopril (Zestril) 5 mg PO DAILY [facility] Last Admin: 10/19/15 10:26 Dose: 5 mg Phenytoin (Dilantin) 100 mg PEG TID [facility] Last Admin: 10/19/15 10:26 Dose: 100 mg Polyethylene Glycol (Miralax) 17 gm PEG BID [facility] Last Admin: 08/21/15 11:26 Dose: Not Given - Constitutional Appears: No Acute Distress - Head Exam Head Exam: NORMAL INSPECTION - Neck Exam Additional comments: trach collar - Respiratory Exam Respiratory Exam: absent: Rales, Rhonchi, Wheezes Additional comments: coughing, thick secretions - Cardiovascular Exam Cardiovascular Exam: REGULAR RHYTHM, +S1, +S2 - GI/Abdominal Exam GI & Abdominal Exam: Normal Bowel Sounds, Soft. absent: Organomegaly, Tenderness - Extremities Exam Extremities exam: pedal pulses present. absent: pedal edema, tenderness - Neurological Exam Neurological exam: absent: Alert, Oriented x3 - Psychiatric Exam Psychiatric exam: absent: Normal Affect - Skin Skin Exam: Normal Color, Warm Assessment/Plan (1) Leukocytosis Current Visit: Yes Status: Acute Comment: 10/18: -f/u blood work on 10/22 10/14: -Resolved, WBC=10.5 today 10/13: -last WBC on 10/11 was 13.1 -patient afebrile but does have sacral bed sore -consider CXR if pt becomes febrile -f/u WBC today 09/20: WBC 10.7; will f/u CBC on 09/25: WBC increased from to 17.2. replace baker catheter and f/u urine culture , urinalysis. f/u CXR in AM CXR - no active disease Monitor temperature Afebrile IV Cefepime 1gm q12h started 07/21 Monitor (2) Bed sore Current Visit: Yes Status: Acute Comment: 10/19: -examined today -continue treatment with Sensicare and Medihoney as per Wound Care 10/12--> cont LWC as per Plastic and Wound care team 10/10: Wound care recommendations: SensiCare to buttocks around ulcer, MediHoney to necrotic tissue, Position Q2 hours, Recall when necrotic tissue is soft/loose for debridement 10/09: sacral ulcer, stage [address]. Panchal consulted, f/u recommendations 08/09- stage one ulcer, healed, per nursing. continue repositioning of patient q2H dolphin mattress (3) Chest congestion Current Visit: Yes Status: Acute Comment: 10/19: -lungs continue to be clear, but patient has thick secretions in throat and is coughing. Duonebs and Mucomist ordered Q6 10/18: lungs clear 09/12: CXR on 09/12 shows no changes. Sputum culture (07/28/15) with Pseudomonas aeruginosa Dr. Armstrong on case-following. (4) Thrombophlebitis of superficial veins of upper extremities Current Visit: Yes Status: Acute Comment: Venous doppler (07/19) prelim report - thrombosis of right cephalic vein (superficial) Shows Abnormality Lovenox 40mg SC daily Warm compresses to area 15 minutes, 3x a day Venous doppler (07/19) showed superficial thrombosis of right cephalic vein. ( see official report). (5) Edema of upper extremity Current Visit: Yes Status: Acute Comment: Continue warm compresses Venous doppler (07/19) showed superficial thrombosis of right cephalic vein. ( see official report). Monitor (6) Anoxic encephalopathy Current Visit: Yes Status: Acute Comment: 10/17: Weaned off vent, now satting well on trach collar (7) Respiratory failure Current Visit: Yes Status: Acute Comment: 10/16: patient on trach collar, tolerating well. 10/12--> cont vent mx as per Pulm, unable to wean 10/06: no rhonchi or rales auscultated. lasix 40mg IVP once given yesterday. CXR - patchy right basilar airspace opacity with granulomatous changes in the left upper lobe and pleural thickening 10/05: rhonchi auscultated. considering CXR 10/04: fluids were added to decrease LFTs 09/27. D/C fluids today Patient is vent dependent. Dr. Salgado (pul) on case-help appreciated Continue patient on trach SIMV. Patient is vent dependent. Unable to wean at this time. Monitor (8) Transaminitis Current Visit: Yes Status: Acute Comment: 10/15: LFT's WNL f/u on 10/22 F/u CMP on Mondays and labs 10/04: AST 54, ALT 109, ALP 11, tbili 0.2 improving D/C fluids 10/01: tbili 0.3, AST 48, ALT 128, ALP 112 decreasing 09/27: AST 87, ALT 227, ALP 117, tbili 0.4 Dilantin level 10.4 started D5-1/2NS @ 50cc/hr 09/24: AST 140, ALT 209, alk phos 100. Increasing LFTs. 09/20: AST 49 , ALT 83 and Alk phos 97. Stable. 09/18: AST 42 , ALT 95 and Alk phos 117. Stable. 09/17: AST 50, [id number] and Alk phos 112. Stable. 09/14: AST 51, ALT 107 and AlK phos 118. Stable. 09/12: AST 49, ALT 99 and AlK phos 115. Improved. Recheck Q4days. Hep panel negative Continue to monitor LFTs (9) Cardiac arrest Current Visit: Yes Status: Acute Comment: s/p V-Tach arrest Continue Plavix 75mg PO daily Continue ASA 325mg PO daily Continue Lisinopril 5mg PO daily (10) STEMI (ST elevation myocardial infarction) Current Visit: Yes Status: Acute Comment: cardiac stents on 06/13/15. Continue Lisinopril 5mg PO daily Continue Plavix 75mg PO daily Continue ASA 325mg PO daily (11) Seizures Current Visit: Yes Status: Acute Comment: 10/17: no new seizures noted 09/01: dilantin level 5.7, continue current management. 08/30--> repeat Dilantin level in am, cont meds, SZ precaution Continue dilantin 100mg via PEG TID Continue to monitor for seizure activity (12) Prophylactic measure Current Visit: Yes Status: Acute Comment: Lovenox 40 mg SQ daily [facility] <Donnell Ying M - Last Filed: 10/19/15 13:07> Objective - Vital Signs/Intake and Output Vital Signs (last 24 hours): Vital Signs - 24 hr 10/18/15 10/19/15 10/19/15 22:12 05:00 10:28 Temperature 98.2 F 98.9 F 98.3 F Pulse Rate 98 H 91 H 100 H Respiratory 18 16 20 Rate Blood Pressure 130/89 119/76 116/78 O2 Sat by Pulse 100 99 98 Oximetry Intake and Output (last 12 hours): Intake & Output 10/18/15 10/19/15 10/19/15 18:59 06:59 18:59 Intake Total 600 890 Output Total 800 700 Balance -200 190 Intake: Tube Feeding 690 Other 600 200 Output: Urine 800 700 Urethral (Baker) 800 700 Other: # Bowel Movements 1 - Medications Medications: Current Medications Acetylcysteine (Acetylcysteine 20%) 3 ml INH RQ6 JOO Albuterol/Ipratropium (Duoneb 3 Mg/0.5 Mg (3 Ml) Ud) 3 ml INH RQ6 JOO Enoxaparin Sodium (Lovenox) 40 mg SC DAILY [facility] Last Admin: 10/19/15 10:27 Dose: 40 mg Lisinopril (Zestril) 5 mg PO DAILY [facility] Last Admin: 10/19/15 10:26 Dose: 5 mg Phenytoin (Dilantin) 100 mg PEG TID [facility] Last Admin: 10/19/15 10:26 Dose: 100 mg Polyethylene Glycol (Miralax) 17 gm PEG BID [facility] Last Admin: 08/21/15 11:26 Dose: Not Given Attending/Attestation - Attestation I have personally seen and examined this patient.: Yes I have fully participated in the care of the patient.: Yes I have reviewed all pertinent clinical information: Yes Notes (Text): 10/19/15 13:06 Patient seen and examined with the resident. He appears to be developing thick upper respiratory secretions. Start DuoNeb and Mucomyst. Frequent suctioning. Discussed with the nursing staff.
[2015-10-19] MEDS: Albuterol-Ipratrop 3 mg / 0.5 (3 ml) UD INH SCH ×2 (13:19→20:08)
[2015-10-19] MEDS: Acetylcysteine 20% Inhal Soln (4ml) INH SCH ×2 (13:20→20:08)
--- NOTE | 2015-10-20 00:12 | CP.PCM.PN ---
<Judith Baires H - Last Filed: 10/20/15 00:09> Subjective - Subjective Subjective: PGY1 Medicine Note: Patient seen and examined at bedside. Patient sleeping comfortably. Patient opening eyes spontaneously. Patient unresponsive to painful and verbal stimuli. Review of Systems - Review of Systems Systems not reviewed;Unavailable: Altered Mental Status Objective - Vital Signs/Intake and Output Vital Signs (last 24 hours): Vital Signs - 24 hr 10/19/15 10/19/15 10/19/15 05:00 10:28 14:10 Temperature 98.9 F 98.3 F 97.4 F L Pulse Rate 91 H 100 H 81 Respiratory 16 20 18 Rate Blood Pressure 119/76 116/78 137/90 O2 Sat by Pulse 99 98 100 Oximetry 10/19/15 22:16 Temperature 98.2 F Pulse Rate 89 Respiratory 18 Rate Blood Pressure 114/75 O2 Sat by Pulse 100 Oximetry Intake and Output (last 12 hours): Intake & Output 10/19/15 10/19/15 10/20/15 06:59 18:59 06:59 Intake Total 890 1000 Output Total 700 300 700 Balance 190 -300 300 Intake: Tube Feeding 690 750 Other 200 250 Output: Urine 700 300 700 Urethral (Yoo) 700 300 700 Other: # Bowel Movements 0 0 - Medications Medications: Current Medications Acetylcysteine (Acetylcysteine 20%) 3 ml INH RQ6 [facility] Last Admin: 10/19/15 20:08 Dose: 3 ml Albuterol/Ipratropium (Duoneb 3 Mg/0.5 Mg (3 Ml) Ud) 3 ml INH RQ6 [facility] Last Admin: 10/19/15 20:08 Dose: 3 ml Enoxaparin Sodium (Lovenox) 40 mg SC DAILY [facility] Last Admin: 10/19/15 10:27 Dose: 40 mg Lisinopril (Zestril) 5 mg PO DAILY [facility] Last Admin: 10/19/15 10:26 Dose: 5 mg Phenytoin (Dilantin) 100 mg PEG TID [facility] Last Admin: 10/19/15 19:08 Dose: 100 mg Polyethylene Glycol (Miralax) 17 gm PEG BID [facility] Last Admin: 08/21/15 11:26 Dose: Not Given - Constitutional Appears: No Acute Distress, Chronically Ill - Head Exam Head Exam: NORMAL INSPECTION - Eye Exam Eye Exam: PERRL - Neck Exam Additional comments: trach collar - Respiratory Exam Respiratory Exam: Rhonchi. absent: Accessory Muscle Use, Respiratory Distress - Cardiovascular Exam Cardiovascular Exam: REGULAR RHYTHM, +S1, +S2 - GI/Abdominal Exam GI & Abdominal Exam: Normal Bowel Sounds, Soft. absent: Distended, Firm, Tenderness - Extremities Exam Extremities exam: pedal pulses present. absent: normal capillary refill, pedal edema - Neurological Exam Neurological exam: Altered. absent: Alert, Oriented x3 - Skin Skin Exam: Dry, Normal Color Assessment/Plan (1) Respiratory failure Current Visit: Yes Status: Acute Comment: 10/20: Patient satting at 100% on trach collar 40% FiO2 Patient coughing with thick secretions Rhonchi on exam Mucomyst and Duonebs started on 10/19 F/U CXR 10/16: patient on trach collar, tolerating well. 10/12--> cont vent mx as per Pulm, unable to wean 10/06: no rhonchi or rales auscultated. lasix 40mg IVP once given yesterday. CXR - patchy right basilar airspace opacity with granulomatous changes in the left upper lobe and pleural thickening 10/05: rhonchi auscultated. considering CXR 10/04: fluids were added to decrease LFTs 09/27. D/C fluids today Patient is vent dependent. Dr. Salgado (pul) on case-help appreciated Continue patient on trach SIMV. Patient is vent dependent. Unable to wean at this time. Monitor (2) Anoxic encephalopathy Current Visit: Yes Status: Acute Comment: 10/20: Satting 100% on trach collar with FiO2 40% on PS/CPAP 10/17: Weaned off vent, now satting well on trach collar (3) Transaminitis Current Visit: Yes Status: Acute Comment: 10/15: LFT's WNL f/u on 10/22 F/u CMP on Mondays and labs 10/04: AST 54, ALT 109, ALP 11, tbili 0.2 improving D/C fluids 10/01: tbili 0.3, AST 48, ALT 128, ALP 112 decreasing 09/27: AST 87, ALT 227, ALP 117, tbili 0.4 Dilantin level 10.4 started D5-1/2NS @ 50cc/hr 09/24: AST 140, ALT 209, alk phos 100. Increasing LFTs. 09/20: AST 49 , ALT 83 and Alk phos 97. Stable. 09/18: AST 42 , ALT 95 and Alk phos 117. Stable. 09/17: AST 50, [id number] and Alk phos 112. Stable. 09/14: AST 51, ALT 107 and AlK phos 118. Stable. 09/12: AST 49, ALT 99 and AlK phos 115. Improved. Recheck Q4days. Hep panel negative Continue to monitor LFTs (4) CAD (coronary artery disease) Current Visit: Yes Status: Acute Comment: Continue Lisinopril 5mg PO daily Continue ASA 325mg PO daily Continue Plavix 75mg PO daily (5) STEMI (ST elevation myocardial infarction) Current Visit: Yes Status: Acute Comment: cardiac stents on 06/13/15. Continue Lisinopril 5mg PO daily Continue Plavix 75mg PO daily Continue ASA 325mg PO daily (6) Seizures Current Visit: Yes Status: Acute Comment: 10/17: no new seizures noted 09/01: dilantin level 5.7, continue current management. 08/30--> repeat Dilantin level in am, cont meds, SZ precaution Continue dilantin 100mg via PEG TID Continue to monitor for seizure activity (7) Prophylactic measure Current Visit: Yes Status: Acute Comment: Lovenox 40 mg SQ daily [facility] <Donnell Ying M - Last Filed: 10/20/15 11:15> Objective - Vital Signs/Intake and Output Vital Signs (last 24 hours): Vital Signs - 24 hr 10/19/15 10/19/15 10/19/15 14:10 20:00 22:16 Temperature 97.4 F L 98.2 F Pulse Rate 81 89 89 Respiratory 18 18 Rate Blood Pressure 137/90 114/75 O2 Sat by Pulse 100 100 Oximetry 10/20/15 10/20/15 06:08 10:22 Temperature 97.8 F Pulse Rate 90 90 Respiratory 18 Rate Blood Pressure 114/77 O2 Sat by Pulse 99 Oximetry Intake and Output (last 12 hours): Intake & Output 10/19/15 10/20/15 10/20/15 18:59 06:59 18:59 Intake Total 1900 Output Total 300 1300 Balance -300 600 Intake: Tube Feeding 1450 Other 450 Output: Urine 300 1300 Urethral (Yoo) 300 1300 Other: # Bowel Movements 0 0 - Medications Medications: Current Medications Acetylcysteine (Acetylcysteine 20%) 3 ml INH RQ6 [facility] Last Admin: 10/20/15 07:08 Dose: 3 ml Albuterol/Ipratropium (Duoneb 3 Mg/0.5 Mg (3 Ml) Ud) 3 ml INH RQ6 [facility] Last Admin: 10/20/15 07:08 Dose: 3 ml Enoxaparin Sodium (Lovenox) 40 mg SC DAILY [facility] Last Admin: 10/20/15 10:06 Dose: 40 mg Lisinopril (Zestril) 5 mg PO DAILY [facility] Last Admin: 10/20/15 10:06 Dose: 5 mg Phenytoin (Dilantin) 100 mg PEG TID [facility] Last Admin: 10/20/15 10:06 Dose: 100 mg Polyethylene Glycol (Miralax) 17 gm PEG BID [facility] Last Admin: 08/21/15 11:26 Dose: Not Given Attending/Attestation - Attestation I have personally seen and examined this patient.: Yes I have fully participated in the care of the patient.: Yes I have reviewed all pertinent clinical information: Yes Notes (Text): 10/20/15 11:13 Patient seen and examined at bedside with the resident. On examination patient's lungs were clear today. We will continue Florinef and Mucomyst treatment. Continue current management.
[2015-10-20] MEDS: Acetylcysteine 20% Inhal Soln (4ml) INH SCH ×4 (01:05→20:10)
[2015-10-20] MEDS: Albuterol-Ipratrop 3 mg / 0.5 (3 ml) UD INH SCH ×4 (01:05→20:10)
[2015-10-20] MEDS: Enoxaparin 40 mg Syringe SC SCH (10:06)
[2015-10-20] MEDS: Phenytoin 100 mg/4 ml Oral Susp UD PEG SCH ×3 (10:06→17:32)
--- NOTE | 2015-10-20 11:57 | RAD ---
HISTORY: cough,thick secretion COMPARISON: Chest x-ray performed 10/06/15 TECHNIQUE: Chest, one view. FINDINGS: LUNGS: Tracheostomy tube. Mild bibasilar atelectasis. No focal consolidation. Please note that chest x-ray has limited sensitivity for the detection of pulmonary masses. PLEURA: No significant pleural effusion identified. No definite pneumothorax . CARDIOVASCULAR: Enlargement of the cardiomediastinal silhouette. Tortuous aorta. Atherosclerotic calcifications. OSSEOUS STRUCTURES: Degenerative changes of the spine. VISUALIZED UPPER ABDOMEN: Unremarkable. OTHER FINDINGS: None. IMPRESSION: Enlarged cardiomediastinal silhouette with tortuous aorta. Underlying adenopathy or alternative pathologies cannot be excluded. Tracheostomy tube. Mild bibasilar atelectasis.
--- NOTE | 2015-10-21 00:21 | CP.PCM.PN ---
<Judith Baires H - Last Filed: 10/21/15 00:18> Subjective - Subjective Subjective: PGY1 Medicine Note: Patient seen and examined at bedside. Patient sleeping comfortably. Patient opening eyes spontaneously. Patient unresponsive to painful and verbal stimuli. Patient not following commands. ROS unable to be obtained. Review of Systems - Review of Systems Systems not reviewed;Unavailable: Altered Mental Status Objective - Vital Signs/Intake and Output Vital Signs (last 24 hours): Vital Signs - 24 hr 10/20/15 10/20/15 10/20/15 06:08 10:22 14:00 Temperature 97.8 F 98 F Pulse Rate 90 90 86 Respiratory 18 18 Rate Blood Pressure 114/77 148/91 H O2 Sat by Pulse 99 100 Oximetry 10/20/15 21:12 Temperature 98.7 F Pulse Rate 90 Respiratory 21 Rate Blood Pressure 133/87 O2 Sat by Pulse 100 Oximetry Intake and Output (last 12 hours): Intake & Output 10/20/15 10/20/15 10/21/15 06:59 18:59 06:59 Intake Total 1900 1200 Output Total 1300 400 Balance 600 800 Intake: Tube Feeding 1450 800 Other 450 400 Output: Urine 1300 400 Urethral (Baker) 1300 400 Other: # Bowel Movements 0 - Medications Medications: Current Medications Acetylcysteine (Acetylcysteine 20%) 3 ml INH RQ6 [facility] Last Admin: 10/20/15 20:10 Dose: 3 ml Albuterol/Ipratropium (Duoneb 3 Mg/0.5 Mg (3 Ml) Ud) 3 ml INH RQ6 [facility] Last Admin: 10/20/15 20:10 Dose: 3 ml Enoxaparin Sodium (Lovenox) 40 mg SC DAILY [facility] Last Admin: 10/20/15 10:06 Dose: 40 mg Lisinopril (Zestril) 5 mg PO DAILY [facility] Last Admin: 10/20/15 10:06 Dose: 5 mg Phenytoin (Dilantin) 100 mg PEG TID [facility] Last Admin: 10/20/15 17:32 Dose: 100 mg Polyethylene Glycol (Miralax) 17 gm PEG BID [facility] Last Admin: 08/21/15 11:26 Dose: Not Given - Constitutional Appears: No Acute Distress, Chronically Ill - Head Exam Head Exam: NORMAL INSPECTION - Eye Exam Eye Exam: PERRL - ENT Exam ENT Exam: Mucous Membranes Moist - Respiratory Exam Respiratory Exam: Clear to PA & Lateral, NORMAL BREATHING PATTERN - Cardiovascular Exam Cardiovascular Exam: REGULAR RHYTHM, +S1, +S2 - GI/Abdominal Exam GI & Abdominal Exam: Normal Bowel Sounds, Soft - Exam Additional comments: baker catheter in place - Extremities Exam Extremities exam: normal capillary refill, pedal pulses present. absent: pedal edema - Neurological Exam Neurological exam: Altered - Skin Skin Exam: Dry, Normal Color Additional comments: sacral ulcer, right elbow ulcer Assessment/Plan (1) Respiratory failure Current Visit: Yes Status: Acute Comment: 10/21: Patient satting at 100% on trach collar 40% FiO2 Continue mucomyst and duonebs CXR (10/20) - enlarged cardiomediastinum silhouette with tortuous aorta. Underlying adenopathy or alternative pathologies cannot be excluded. Tracheostomy tube. Mild bibasilar atelectasis. 10/20: Patient satting at 100% on trach collar 40% FiO2 Patient coughing with thick secretions Rhonchi on exam Mucomyst and Duonebs started on 10/19 F/U CXR 10/16: patient on trach collar, tolerating well. 10/12--> cont vent mx as per Pulm, unable to wean 10/06: no rhonchi or rales auscultated. lasix 40mg IVP once given yesterday. CXR - patchy right basilar airspace opacity with granulomatous changes in the left upper lobe and pleural thickening Dr. Salgado (pulm) on case - help very much appreciated (2) Anoxic encephalopathy Current Visit: Yes Status: Acute Comment: 10/21: Satting 100% on trach collar with FiO2 40% on PS/CPAP 10/17: Weaned off vent, now satting well on trach collar (3) Transaminitis Current Visit: Yes Status: Acute Comment: 10/15: LFT's WNL f/u on 10/22 F/u CMP on Mondays and labs 10/04: AST 54, ALT 109, ALP 11, tbili 0.2 improving D/C fluids 10/01: tbili 0.3, AST 48, ALT 128, ALP 112 decreasing 09/27: AST 87, ALT 227, ALP 117, tbili 0.4 Dilantin level 10.4 started D5-1/2NS @ 50cc/hr 09/24: AST 140, ALT 209, alk phos 100. Increasing LFTs. 09/20: AST 49 , ALT 83 and Alk phos 97. Stable. 09/18: AST 42 , ALT 95 and Alk phos 117. Stable. 09/17: AST 50, [id number] and Alk phos 112. Stable. 09/14: AST 51, ALT 107 and AlK phos 118. Stable. 09/12: AST 49, ALT 99 and AlK phos 115. Improved. Recheck Q4days. Hep panel negative Continue to monitor LFTs (4) CAD (coronary artery disease) Current Visit: Yes Status: Acute Comment: Continue Lisinopril 5mg PO daily Continue ASA 325mg PO daily Continue Plavix 75mg PO daily (5) STEMI (ST elevation myocardial infarction) Current Visit: Yes Status: Acute Comment: cardiac stents on 06/13/15. Continue Lisinopril 5mg PO daily Continue Plavix 75mg PO daily Continue ASA 325mg PO daily (6) Seizures Current Visit: Yes Status: Acute Comment: 10/21: no new seizures noted 09/01: dilantin level 5.7, continue current management. 08/30--> repeat Dilantin level in am, cont meds, SZ precaution Continue dilantin 100mg via PEG TID Continue to monitor for seizure activity (7) Prophylactic measure Current Visit: Yes Status: Acute Comment: Lovenox 40 mg SQ daily [facility] <Donnell Ying M - Last Filed: 10/21/15 13:18> Objective - Vital Signs/Intake and Output Vital Signs (last 24 hours): Vital Signs - 24 hr 10/20/15 10/20/15 10/21/15 14:00 21:12 06:02 Temperature 98 F 98.7 F 98.8 F Pulse Rate 86 90 100 H Respiratory 18 21 20 Rate Blood Pressure 148/91 H 133/87 130/79 O2 Sat by Pulse 100 100 100 Oximetry 10/21/15 08:01 Temperature Pulse Rate 100 H Respiratory Rate Blood Pressure O2 Sat by Pulse Oximetry Intake and Output (last 12 hours): Intake & Output 10/20/15 10/21/15 10/21/15 18:59 06:59 18:59 Intake Total 1200 900 Output Total 400 600 Balance 800 300 Intake: Tube Feeding 800 700 Other 400 200 Output: Urine 400 600 Urethral (Baker) 400 600 Other: # Bowel Movements 1 - Medications Medications: Current Medications Acetylcysteine (Acetylcysteine 20%) 3 ml INH RQ6 [facility] Last Admin: 10/21/15 07:11 Dose: 3 ml Albuterol/Ipratropium (Duoneb 3 Mg/0.5 Mg (3 Ml) Ud) 3 ml INH RQ6 [facility] Last Admin: 10/21/15 07:11 Dose: 3 ml Aspirin (Aspirin) 325 mg PEG DAILY [facility] Last Admin: 10/21/15 11:46 Dose: 325 mg Clopidogrel Bisulfate (Plavix) 75 mg PEG DAILY [facility] Last Admin: 10/21/15 11:46 Dose: 75 mg Enoxaparin Sodium (Lovenox) 40 mg SC DAILY [facility] Last Admin: 10/21/15 10:23 Dose: 40 mg Lisinopril (Zestril) 5 mg PO DAILY [facility] Last Admin: 10/21/15 10:23 Dose: 5 mg Phenytoin (Dilantin) 100 mg PEG TID [facility] Last Admin: 10/21/15 13:11 Dose: 100 mg Polyethylene Glycol (Miralax) 17 gm PEG BID [facility] Last Admin: 08/21/15 11:26 Dose: Not Given Attending/Attestation - Attestation I have personally seen and examined this patient.: Yes I have fully participated in the care of the patient.: Yes I have reviewed all pertinent clinical information: Yes Notes (Text): 10/21/15 13:17 Patient seen and examined at bedside. Comfortable on trach collar Patient needs frequent suctioning and nebulizing treatment present at bedside. Discussed with , answered all questions. Continue current management
[2015-10-21] MEDS: Acetylcysteine 20% Inhal Soln (4ml) INH SCH ×4 (01:19→20:51)
[2015-10-21] MEDS: Albuterol-Ipratrop 3 mg / 0.5 (3 ml) UD INH SCH ×4 (01:19→20:51)
[2015-10-21] MEDS: Phenytoin 100 mg/4 ml Oral Susp UD PEG SCH ×3 (10:23→17:25)
[2015-10-21] MEDS: Enoxaparin 40 mg Syringe SC SCH (10:23)
[2015-10-22] MEDS: Acetylcysteine 20% Inhal Soln (4ml) INH SCH ×4 (01:02→19:12)
[2015-10-22] MEDS: Albuterol-Ipratrop 3 mg / 0.5 (3 ml) UD INH SCH ×4 (01:02→19:12)
[2015-10-22 07:50] LABS: BASO # 0.1 K/uL (0.0-0.2); BASO % 0.6 % (0.0-2.0); EOS # 1.8 K/uL (0.0-0.7); EOS % 17.2 % (0.0-4.0); HEMOGLOBIN 13.1 g/dL (12.0-18.0); LYMPH # 1.4 K/uL (1.0-4.3); LYMPH % 13.4 % (20.0-40.0); MEAN CORPUSCULAR HEMOGLOBIN 31.3 pg (27.0-31.0); MEAN CORPUSCULAR HGB CONC 33.7 g/dL (33.0-37.0); MEAN PLATELET VOLUME 8.1 fL (7.2-11.7); MONO # 0.7 K/uL (0.0-0.8); MONO % 6.7 % (0.0-10.0); NEUT # 6.6 K/uL (1.8-7.0); NEUT % 62.1 % (50.0-75.0); RBC 4.18 Mil/uL (4.40-5.90); RED CELL DISTRIBUTION WIDTH 14.2 % (11.5-14.5); WHITE BLOOD COUNT 10.6 K/uL (4.8-10.8)
[2015-10-22 08:04] LABS: ALBUMIN 3.4 g/dL (3.5-5.0)
[2015-10-22 08:07] LABS: ALB/GLOB RATIO 0.9 (1.0-2.1); ALT/SGPT 84 U/L (21-72); AST/SGOT 45 U/L (17-59); BLOOD UREA NITROGEN 17 mg/dL (9-20); GFR NON-AFRICAN AMERICAN > 60
[2015-10-22 08:08] LABS: CALCIUM 9.1 mg/dL (8.4-10.2)
[2015-10-22] MEDS: Enoxaparin 40 mg Syringe SC SCH (09:38)
[2015-10-22] MEDS: Phenytoin 100 mg/4 ml Oral Susp UD PEG SCH ×3 (09:38→17:14)
--- NOTE | 2015-10-22 15:35 | CP.PCM.PN ---
<Yesenia Mayer - Last Filed: 10/22/15 15:31> Subjective - Subjective Subjective: PGY1 Note, Medicine Service: Patient seen and examined at bedside, sleeping comfortably. Aphasic secondary to anoxic brain injury. Unable to provide ROS. I was notified by the social work case manager that there is a family meeting planned for tomorrow at 2pm in the conference room on [address] tower. They will discuss possible options for placement now that the patient has been successfully weaned off of mechanical ventilation. Review of Systems - Review of Systems Systems not reviewed;Unavailable: Altered Mental Status Objective - Vital Signs/Intake and Output Vital Signs (last 24 hours): Vital Signs - 24 hr 10/21/15 10/21/15 10/22/15 19:45 21:14 05:44 Temperature 97.6 F 97.9 F Pulse Rate 96 H 84 95 H Respiratory 19 18 Rate Blood Pressure 126/77 137/82 O2 Sat by Pulse 99 98 Oximetry 10/22/15 10/22/15 08:43 13:00 Temperature 98 F Pulse Rate 95 H 94 H Respiratory 22 Rate Blood Pressure 138/74 O2 Sat by Pulse 100 Oximetry Intake and Output (last 12 hours): Intake & Output 10/21/15 10/22/15 10/22/15 18:59 06:59 18:59 Intake Total 800 Output Total 500 1550 300 Balance 300 -1550 -300 Intake: Tube Feeding 800 Output: Urine 500 1550 300 Urethral (Baker) 500 1550 300 Other: # Bowel Movements 1 1 1 - Medications Medications: Current Medications Acetylcysteine (Acetylcysteine 20%) 3 ml INH RQ6 [facility] Last Admin: 10/22/15 13:26 Dose: 3 ml Albuterol/Ipratropium (Duoneb 3 Mg/0.5 Mg (3 Ml) Ud) 3 ml INH RQ6 [facility] Last Admin: 10/22/15 13:26 Dose: 3 ml Aspirin (Aspirin) 325 mg PEG DAILY [facility] Last Admin: 10/22/15 09:38 Dose: 325 mg Clopidogrel Bisulfate (Plavix) 75 mg PEG DAILY [facility] Last Admin: 10/22/15 09:38 Dose: 75 mg Enoxaparin Sodium (Lovenox) 40 mg SC DAILY [facility] Last Admin: 10/22/15 09:38 Dose: 40 mg Lisinopril (Zestril) 5 mg PO DAILY [facility] Last Admin: 10/22/15 09:38 Dose: 5 mg Phenytoin (Dilantin) 100 mg PEG TID [facility] Last Admin: 10/22/15 14:14 Dose: 100 mg Polyethylene Glycol (Miralax) 17 gm PEG BID [facility] Last Admin: 08/21/15 11:26 Dose: Not Given - Labs Labs (last 24 hours): Laboratory Results - last 24 hr 10/22/15 07:24 WBC 10.6 RBC 4.18 L Hgb 13.1 Hct 38.9 MCV 93.0 MCH 31.3 H MCHC 33.7 RDW 14.2 Plt Count 329 MPV 8.1 Neut % (Auto) 62.1 Lymph % (Auto) 13.4 L Ware % (Auto) 6.7 Eos % (Auto) 17.2 H Baso % (Auto) 0.6 Neut # 6.6 Lymph # 1.4 Ware # 0.7 Eos # 1.8 H Baso # 0.1 Sodium 139 Potassium 4.1 Chloride 101 Carbon Dioxide 30 Anion Gap 12 BUN 17 Creatinine 0.4 L Est GFR ( Amer) > 60 Est GFR (Non-Af Amer) > 60 Random Glucose 136 H Calcium 9.1 Phosphorus 3.6 Magnesium 2.2 Total Bilirubin 0.3 AST 45 ALT 84 H D Alkaline Phosphatase 113 Total Protein 7.4 Albumin 3.4 L Globulin 3.9 Albumin/Globulin Ratio 0.9 L - Constitutional Appears: No Acute Distress - Head Exam Head Exam: NORMAL INSPECTION - ENT Exam ENT Exam: Mucous Membranes Dry - Neck Exam Additional comments: trach collar - Respiratory Exam Respiratory Exam: Clear to PA & Lateral. absent: Rales, Rhonchi, Wheezes - Cardiovascular Exam Cardiovascular Exam: REGULAR RHYTHM, +S1, +S2 - GI/Abdominal Exam GI & Abdominal Exam: Normal Bowel Sounds, Soft. absent: Organomegaly, Tenderness - Extremities Exam Extremities exam: pedal pulses present. absent: pedal edema, tenderness - Neurological Exam Neurological exam: absent: Alert, Oriented x3 - Psychiatric Exam Psychiatric exam: absent: Normal Affect - Skin Skin Exam: Normal Color, Warm Assessment/Plan (1) Leukocytosis Current Visit: Yes Status: Acute Comment: 10/22: -WBC 10.6 WNL 10/18: -f/u blood work on 10/22 10/14: -Resolved, WBC=10.5 today 10/13: -last WBC on 10/11 was 13.1 -patient afebrile but does have sacral bed sore -consider CXR if pt becomes febrile -f/u WBC today 09/20: WBC 10.7; will f/u CBC on 09/25: WBC increased from to 17.2. replace baker catheter and f/u urine culture , urinalysis. f/u CXR in AM CXR - no active disease Monitor temperature Afebrile IV Cefepime 1gm q12h started 07/21 Monitor (2) Bed sore Current Visit: Yes Status: Acute Comment: 10/22: -wound care following patient 10/19: -examined today -continue treatment with Sensicare and Medihoney as per Wound Care 10/12--> cont LWC as per Plastic and Wound care team 10/10: Wound care recommendations: SensiCare to buttocks around ulcer, MediHoney to necrotic tissue, Position Q2 hours, Recall when necrotic tissue is soft/loose for debridement 10/09: sacral ulcer, stage [address] Panchal consulted, f/u recommendations 08/09- stage one ulcer, healed, per nursing. continue repositioning of patient q2H dolphin mattress (3) Chest congestion Current Visit: Yes Status: Acute Comment: 10/22: -Asa per nursing, patient continues to have secretions, but not as thick as over the weekens -Continue Duonebs and Mucomist Q6 10/19: -lungs continue to be clear, but patient has thick secretions in throat and is coughing. Duonebs and Mucomist ordered Q6 10/18: lungs clear 09/12: CXR on 09/12 shows no changes. Sputum culture (07/28/15) with Pseudomonas aeruginosa Dr. Armstrong on case-following. (4) Thrombophlebitis of superficial veins of upper extremities Current Visit: Yes Status: Acute Comment: Venous doppler (07/19) prelim report - thrombosis of right cephalic vein (superficial) Shows Abnormality Lovenox 40mg SC daily Warm compresses to area 15 minutes, 3x a day Venous doppler (07/19) showed superficial thrombosis of right cephalic vein. ( see official report). (5) Edema of upper extremity Current Visit: Yes Status: Acute Comment: Continue warm compresses Venous doppler (07/19) showed superficial thrombosis of right cephalic vein. ( see official report). Monitor (6) Anoxic encephalopathy Current Visit: Yes Status: Acute Comment: 10/21: Satting 100% on trach collar with FiO2 40% on PS/CPAP 10/17: Weaned off vent, now satting well on trach collar (7) Respiratory failure Current Visit: Yes Status: Acute Comment: 10/21: Patient satting at 100% on trach collar 40% FiO2 Continue mucomyst and duonebs CXR (10/20) - enlarged cardiomediastinum silhouette with tortuous aorta. Underlying adenopathy or alternative pathologies cannot be excluded. Tracheostomy tube. Mild bibasilar atelectasis. 10/20: Patient satting at 100% on trach collar 40% FiO2 Patient coughing with thick secretions Rhonchi on exam Mucomyst and Duonebs started on 10/19 F/U CXR 10/16: patient on trach collar, tolerating well. 10/12--> cont vent mx as per Pulm, unable to wean 10/06: no rhonchi or rales auscultated. lasix 40mg IVP once given yesterday. CXR - patchy right basilar airspace opacity with granulomatous changes in the left upper lobe and pleural thickening Dr. Salgado (pul) on case - help very much appreciated (8) Transaminitis Current Visit: Yes Status: Acute Comment: 10/22: ALT=84 10/15: LFT's WNL f/u on 10/22 F/u CMP on Mondays and labs 10/04: AST 54, ALT 109, ALP 11, tbili 0.2 improving D/C fluids 10/01: tbili 0.3, AST 48, ALT 128, ALP 112 decreasing 09/27: AST 87, ALT 227, ALP 117, tbili 0.4 Dilantin level 10.4 started D5-1/2NS @ 50cc/hr 09/24: AST 140, ALT 209, alk phos 100. Increasing LFTs. 09/20: AST 49 , ALT 83 and Alk phos 97. Stable. 09/18: AST 42 , ALT 95 and Alk phos 117. Stable. 09/17: AST 50, [id number] and Alk phos 112. Stable. 09/14: AST 51, ALT 107 and AlK phos 118. Stable. 09/12: AST 49, ALT 99 and AlK phos 115. Improved. Recheck Q4days. Hep panel negative Continue to monitor LFTs (9) Cardiac arrest Current Visit: Yes Status: Acute Comment: s/p V-Tach arrest Continue Plavix 75mg PO daily Continue ASA 325mg PO daily Continue Lisinopril 5mg PO daily (10) STEMI (ST elevation myocardial infarction) Current Visit: Yes Status: Acute Comment: cardiac stents on 06/13/15. Continue Lisinopril 5mg PO daily Continue Plavix 75mg PO daily Continue ASA 325mg PO daily (11) Seizures Current Visit: Yes Status: Acute Comment: 10/21: no new seizures noted 09/01: dilantin level 5.7, continue current management. 08/30--> repeat Dilantin level in am, cont meds, SZ precaution Continue dilantin 100mg via PEG TID Continue to monitor for seizure activity (12) Prophylactic measure Current Visit: Yes Status: Acute Comment: Lovenox 40 mg SQ daily [facility] <Rashel Rodrigues - Last Filed: 10/22/15 18:54> Objective - Vital Signs/Intake and Output Vital Signs (last 24 hours): Vital Signs - 24 hr 10/21/15 10/21/15 10/22/15 19:45 21:14 05:44 Temperature 97.6 F 97.9 F Pulse Rate 96 H 84 95 H Respiratory 19 18 Rate Blood Pressure 126/77 137/82 O2 Sat by Pulse 99 98 Oximetry 10/22/15 10/22/15 08:43 13:00 Temperature 98 F Pulse Rate 95 H 94 H Respiratory 22 Rate Blood Pressure 138/74 O2 Sat by Pulse 100 Oximetry Intake and Output (last 12 hours): Intake & Output 10/21/15 10/22/15 10/22/15 18:59 06:59 18:59 Intake Total 800 1200 Output Total 500 1550 300 Balance 300 -1550 900 Intake: Tube Feeding 800 800 Other 400 Output: Urine 500 1550 300 Urethral (Baekr) 500 1550 300 Other: # Bowel Movements 1 1 1 - Medications Medications: Current Medications Acetylcysteine (Acetylcysteine 20%) 3 ml INH RQ6 [facility] Last Admin: 10/22/15 13:26 Dose: 3 ml Albuterol/Ipratropium (Duoneb 3 Mg/0.5 Mg (3 Ml) Ud) 3 ml INH RQ6 [facility] Last Admin: 10/22/15 13:26 Dose: 3 ml Aspirin (Aspirin) 325 mg PEG DAILY [facility] Last Admin: 10/22/15 09:38 Dose: 325 mg Clopidogrel Bisulfate (Plavix) 75 mg PEG DAILY [facility] Last Admin: 10/22/15 09:38 Dose: 75 mg Enoxaparin Sodium (Lovenox) 40 mg SC DAILY [facility] Last Admin: 10/22/15 09:38 Dose: 40 mg Lisinopril (Zestril) 5 mg PO DAILY [facility] Last Admin: 10/22/15 09:38 Dose: 5 mg Phenytoin (Dilantin) 100 mg PEG TID [facility] Last Admin: 10/22/15 17:14 Dose: 100 mg Polyethylene Glycol (Miralax) 17 gm PEG BID [facility] Last Admin: 08/21/15 11:26 Dose: Not Given - Labs Labs (last 24 hours): Laboratory Results - last 24 hr 10/22/15 07:24 WBC 10.6 RBC 4.18 L Hgb 13.1 Hct 38.9 MCV 93.0 MCH 31.3 H MCHC 33.7 RDW 14.2 Plt Count 329 MPV 8.1 Neut % (Auto) 62.1 Lymph % (Auto) 13.4 L Ware % (Auto) 6.7 Eos % (Auto) 17.2 H Baso % (Auto) 0.6 Neut # 6.6 Lymph # 1.4 Ware # 0.7 Eos # 1.8 H Baso # 0.1 Sodium 139 Potassium 4.1 Chloride 101 Carbon Dioxide 30 Anion Gap 12 BUN 17 Creatinine 0.4 L Est GFR ( Amer) > 60 Est GFR (Non-Af Amer) > 60 Random Glucose 136 H Calcium 9.1 Phosphorus 3.6 Magnesium 2.2 Total Bilirubin 0.3 AST 45 ALT 84 H D Alkaline Phosphatase 113 Total Protein 7.4 Albumin 3.4 L Globulin 3.9 Albumin/Globulin Ratio 0.9 L Assessment/Plan (1) Anoxic encephalopathy Current Visit: Yes Status: Acute Comment: 10/21: Satting 100% on trach collar with FiO2 40% on PS/CPAP 10/17: Weaned off vent, now satting well on trach collar (2) STEMI (ST elevation myocardial infarction) Current Visit: Yes Status: Acute Comment: cardiac stents on 06/13/15. Continue Lisinopril 5mg PO daily Continue Plavix 75mg PO daily Continue ASA 325mg PO daily (3) Respiratory failure Current Visit: Yes Status: Acute Comment: 10/21: Patient satting at 100% on trach collar 40% FiO2 Continue mucomyst and duonebs CXR (10/20) - enlarged cardiomediastinum silhouette with tortuous aorta. Underlying adenopathy or alternative pathologies cannot be excluded. Tracheostomy tube. Mild bibasilar atelectasis. 10/20: Patient satting at 100% on trach collar 40% FiO2 Patient coughing with thick secretions Rhonchi on exam Mucomyst and Duonebs started on 10/19 F/U CXR 10/16: patient on trach collar, tolerating well. 10/12--> cont vent mx as per Pulm, unable to wean 10/06: no rhonchi or rales auscultated. lasix 40mg IVP once given yesterday. CXR - patchy right basilar airspace opacity with granulomatous changes in the left upper lobe and pleural thickening Dr. Salgado (pul) on case - help very much appreciated (4) Seizures Current Visit: Yes Status: Acute Comment: 10/21: no new seizures noted 09/01: dilantin level 5.7, continue current management. 08/30--> repeat Dilantin level in am, cont meds, SZ precaution Continue dilantin 100mg via PEG TID Continue to monitor for seizure activity (5) Prophylactic measure Current Visit: Yes Status: Acute Comment: Lovenox 40 mg SQ daily SCD[facility] (6) Bed sore Current Visit: Yes Status: Acute Comment: 10/22: -wound care following patient 10/19: -examined today -continue treatment with [facility] and Medihoney as per Wound Care 10/12--> cont LWC as per Plastic and Wound care team 10/10: Wound care recommendations: SensiCare to buttocks around ulcer, MediHoney to necrotic tissue, Position Q2 hours, Recall when necrotic tissue is soft/loose for debridement 10/09: sacral ulcer, stage [address] Panchal consulted, f/u recommendations 08/09- stage one ulcer, healed, per nursing. continue repositioning of patient q2H [facility] Attending/Attestation - Attestation I have personally seen and examined this patient.: Yes I have fully participated in the care of the patient.: Yes I have reviewed all pertinent clinical information: Yes Notes (Text): 10/22/15 18:52 patient seen and examined during round with resident. pt is on C, and tolerating well for more than 10 days. cont LWC for Sacral Decu cont suppoortive care DW CM re dc planning--> said that there will be a family meeting at tomorrow 2 PM
[2015-10-23] MEDS: Acetylcysteine 20% Inhal Soln (4ml) INH SCH ×2 (01:11→21:38)
[2015-10-23] MEDS: Albuterol-Ipratrop 3 mg / 0.5 (3 ml) UD INH SCH ×4 (01:11→21:38)
[2015-10-23] MEDS: Phenytoin 100 mg/4 ml Oral Susp UD PEG SCH ×3 (10:10→17:42)
[2015-10-23] MEDS: Enoxaparin 40 mg Syringe SC SCH (10:10)
--- NOTE | 2015-10-23 17:11 | CP.PCM.PN ---
<Scout Marinelli - Last Filed: 10/23/15 17:05> Subjective - Subjective Subjective: Pt seen and examined at bedside this morning. Pt off vent support and awake. Unresponsive to verbal commands. Unable to provide ROS. S/P meeting with family and social workers today regarding placement. Family understood and agreed to proceed with the process. Review of Systems - Review of Systems Systems not reviewed;Unavailable: Acuity of Condition Objective - Vital Signs/Intake and Output Vital Signs (last 24 hours): Vital Signs - 24 hr 10/22/15 10/22/15 10/23/15 20:00 21:51 05:10 Temperature 98.7 F 99 F Pulse Rate 105 H 105 H 97 H Respiratory 20 20 Rate Blood Pressure 96/60 L 118/82 O2 Sat by Pulse 100 Oximetry Intake and Output (last 12 hours): Intake & Output 10/22/15 10/23/15 10/23/15 18:59 06:59 18:59 Intake Total 1200 900 Output Total 300 1450 Balance 900 -550 Intake: Tube Feeding 800 700 Other 400 200 Output: Urine 300 1450 Urethral (Baker) 300 1450 Other: # Bowel Movements 1 0 - Medications Medications: Current Medications Acetylcysteine (Acetylcysteine 20%) 3 ml INH RQ6 [facility] Last Admin: 10/23/15 01:11 Dose: 3 ml Albuterol/Ipratropium (Duoneb 3 Mg/0.5 Mg (3 Ml) Ud) 3 ml INH RQ6 [facility] Last Admin: 10/23/15 14:36 Dose: 3 ml Aspirin (Aspirin) 325 mg PEG DAILY [facility] Last Admin: 10/23/15 10:10 Dose: 325 mg Clopidogrel Bisulfate (Plavix) 75 mg PEG DAILY [facility] Last Admin: 10/23/15 10:10 Dose: 75 mg Enoxaparin Sodium (Lovenox) 40 mg SC DAILY [facility] Last Admin: 10/23/15 10:10 Dose: 40 mg Phenytoin (Dilantin) 100 mg PEG TID [facility] Last Admin: 10/23/15 13:20 Dose: 100 mg Polyethylene Glycol (Miralax) 17 gm PEG BID [facility] Last Admin: 08/21/15 11:26 Dose: Not Given - Labs Labs (last 24 hours): Laboratory Results - last 24 hr 10/23/15 07:19 POC Glucose (mg/dL) 124 H - Constitutional Appears: Non-toxic, No Acute Distress - Head Exam Head Exam: NORMAL INSPECTION - Eye Exam Eye Exam: Normal appearance, PERRL Pupil Exam: NORMAL ACCOMODATION - ENT Exam ENT Exam: Mucous Membranes Dry - Neck Exam Additional comments: tracheostomy collar - Respiratory Exam Respiratory Exam: Clear to PA & Lateral, NORMAL BREATHING PATTERN - Cardiovascular Exam Cardiovascular Exam: REGULAR RHYTHM, +S1, +S2 - Neurological Exam Neurological exam: Altered - Skin Skin Exam: Normal Color Assessment/Plan (1) Leukocytosis Current Visit: Yes Status: Acute Comment: 10/23: Continue monitoring. 10/22: -WBC 10.6 WNL 10/18: -f/u blood work on 10/22 10/14: -Resolved, WBC=10.5 today 10/13: -last WBC on 10/11 was 13.1 -patient afebrile but does have sacral bed sore -consider CXR if pt becomes febrile -f/u WBC today 09/20: WBC 10.7; will f/u CBC on 09/25: WBC increased from to 17.2. replace baker catheter and f/u urine culture , urinalysis. f/u CXR in AM CXR - no active disease Monitor temperature Afebrile IV Cefepime 1gm q12h started 07/21 Monitor (2) Seizures Current Visit: Yes Status: Acute Comment: 10/21: no new seizures noted 09/01: dilantin level 5.7, continue current management. 08/30--> repeat Dilantin level in am, cont meds, SZ precaution Continue dilantin 100mg via PEG TID Continue to monitor for seizure activity (3) Anoxic encephalopathy Current Visit: Yes Status: Acute Comment: 10/21: Satting 100% on trach collar with FiO2 40% on PS/CPAP 10/17: Weaned off vent, now satting well on trach collar (4) Respiratory failure Current Visit: Yes Status: Acute Comment: 10/21: Patient satting at 100% on trach collar 40% FiO2 Continue mucomyst and duonebs CXR (10/20) - enlarged cardiomediastinum silhouette with tortuous aorta. Underlying adenopathy or alternative pathologies cannot be excluded. Tracheostomy tube. Mild bibasilar atelectasis. 10/20: Patient satting at 100% on trach collar 40% FiO2 Patient coughing with thick secretions Rhonchi on exam Mucomyst and Duonebs started on 10/19 F/U CXR 10/16: patient on trach collar, tolerating well. 10/12--> cont vent mx as per Pulm, unable to wean 10/06: no rhonchi or rales auscultated. lasix 40mg IVP once given yesterday. CXR - patchy right basilar airspace opacity with granulomatous changes in the left upper lobe and pleural thickening Dr. Salgado (pul) on case - help very much appreciated (5) Bed sore Current Visit: Yes Status: Acute Comment: 10/23: Improving, continue wound care. 10/22: -wound care following patient 10/19: -examined today -continue treatment with Sensicare and Medihoney as per Wound Care 10/12--> cont LWC as per Plastic and Wound care team 10/10: Wound care recommendations: SensiCare to buttocks around ulcer, MediHoney to necrotic tissue, Position Q2 hours, Recall when necrotic tissue is soft/loose for debridement 10/09: sacral ulcer, stage [address] Panchal consulted, f/u recommendations 08/09- stage one ulcer, healed, per nursing. continue repositioning of patient q2H dolphin mattress (6) Prophylactic measure Current Visit: Yes Status: Acute Comment: Lovenox 40 mg SQ daily [facility] <Rashel Rodrigues - Last Filed: 10/23/15 17:53> Objective - Vital Signs/Intake and Output Vital Signs (last 24 hours): Vital Signs - 24 hr 10/22/15 10/22/15 10/23/15 20:00 21:51 05:10 Temperature 98.7 F 99 F Pulse Rate 105 H 105 H 97 H Respiratory 20 20 Rate Blood Pressure 96/60 L 118/82 O2 Sat by Pulse 100 Oximetry Intake and Output (last 12 hours): Intake & Output 10/22/15 10/23/15 10/23/15 18:59 06:59 18:59 Intake Total 1200 900 Output Total 300 1450 Balance 900 -550 Intake: Tube Feeding 800 700 Other 400 200 Output: Urine 300 1450 Urethral (Baker) 300 1450 Other: # Bowel Movements 1 0 - Medications Medications: Current Medications Acetylcysteine (Acetylcysteine 20%) 3 ml INH RQ6 [facility] Last Admin: 10/23/15 01:11 Dose: 3 ml Albuterol/Ipratropium (Duoneb 3 Mg/0.5 Mg (3 Ml) Ud) 3 ml INH RQ6 [facility] Last Admin: 10/23/15 14:36 Dose: 3 ml Aspirin (Aspirin) 325 mg PEG DAILY [facility] Last Admin: 10/23/15 10:10 Dose: 325 mg Clopidogrel Bisulfate (Plavix) 75 mg PEG DAILY [facility] Last Admin: 10/23/15 10:10 Dose: 75 mg Enoxaparin Sodium (Lovenox) 40 mg SC DAILY [facility] Last Admin: 10/23/15 10:10 Dose: 40 mg Phenytoin (Dilantin) 100 mg PEG TID [facility] Last Admin: 10/23/15 17:42 Dose: 100 mg Polyethylene Glycol (Miralax) 17 gm PEG BID [facility] Last Admin: 08/21/15 11:26 Dose: Not Given - Labs Labs (last 24 hours): Laboratory Results - last 24 hr 10/23/15 07:19 POC Glucose (mg/dL) 124 H Assessment/Plan (1) Anoxic encephalopathy Current Visit: Yes Status: Acute Comment: 10/21: Satting 100% on trach collar with FiO2 40% on PS/CPAP 10/17: Weaned off vent, now satting well on trach collar (2) STEMI (ST elevation myocardial infarction) Current Visit: Yes Status: Acute Comment: cardiac stents on 06/13/15. Continue Lisinopril 5mg PO daily Continue Plavix 75mg PO daily Continue ASA 325mg PO daily (3) Respiratory failure Current Visit: Yes Status: Acute Comment: 10/21: Patient satting at 100% on trach collar 40% FiO2 Continue mucomyst and duonebs CXR (10/20) - enlarged cardiomediastinum silhouette with tortuous aorta. Underlying adenopathy or alternative pathologies cannot be excluded. Tracheostomy tube. Mild bibasilar atelectasis. 10/20: Patient satting at 100% on trach collar 40% FiO2 Patient coughing with thick secretions Rhonchi on exam Mucomyst and Duonebs started on 10/19 F/U CXR 10/16: patient on trach collar, tolerating well. 10/12--> cont vent mx as per Pulm, unable to wean 10/06: no rhonchi or rales auscultated. lasix 40mg IVP once given yesterday. CXR - patchy right basilar airspace opacity with granulomatous changes in the left upper lobe and pleural thickening Dr. Salgado (pul) on case - help very much appreciated (4) Seizures Current Visit: Yes Status: Acute Comment: 10/21: no new seizures noted 09/01: dilantin level 5.7, continue current management. 08/30--> repeat Dilantin level in am, cont meds, SZ precaution Continue dilantin 100mg via PEG TID Continue to monitor for seizure activity (5) Prophylactic measure Current Visit: Yes Status: Acute Comment: Lovenox 40 mg SQ daily [facility]CD[facility] (6) Bed sore Current Visit: Yes Status: Acute Comment: 10/23: Improving, continue wound care. 10/22: -wound care following patient 10/19: -examined today -continue treatment with Sensicare and Medihoney as per Wound Care 10/12--> cont LWC as per Plastic and Wound care team 10/10: Wound care recommendations: SensiCare to buttocks around ulcer, MediHoney to necrotic tissue, Position Q2 hours, Recall when necrotic tissue is soft/loose for debridement 10/09: sacral ulcer, stage [address] Panchal consulted, f/u recommendations 08/09- stage one ulcer, healed, per nursing. continue repositioning of patient q2H [facility] mattress Attending/Attestation - Attestation I have personally seen and examined this patient.: Yes I have fully participated in the care of the patient.: Yes I have reviewed all pertinent clinical information: Yes Notes (Text): 10/23/15 17:49 Patient was seen and examined during round with residents. pt condition remains the same. still on Tach Collar. family meeting with , daughter nad family friend, CM, Chief of WENDIE ZHAO, [employer], ( Translation helped by Resident ) Family was updated and discuaased at length and answered all questiond and addressed all concerns, until satisfaied. Then PAVEL. WENDIE discussed and family agrees with the plan for moving the pt to sub acute or extermination supervisor facility in [place]
[2015-10-24] MEDS: Albuterol-Ipratrop 3 mg / 0.5 (3 ml) UD INH SCH ×3 (01:09→13:26)
[2015-10-24] MEDS: Acetylcysteine 20% Inhal Soln (4ml) INH SCH ×4 (01:09→19:19)
[2015-10-24] MEDS: Enoxaparin 40 mg Syringe SC SCH (10:08)
[2015-10-24] MEDS: Phenytoin 100 mg/4 ml Oral Susp UD PEG SCH ×3 (10:09→17:44)
--- NOTE | 2015-10-24 11:48 | CP.PCM.PN ---
<Scout Marinelli - Last Filed: 10/24/15 11:46> Subjective - Subjective Subjective: Pt seen and examined at bedside this morning. Pt off vent support and awake. Unresponsive to verbal commands. Unable to provide ROS. S/P meeting with family and social workers yesterday regarding placement. Review of Systems - Review of Systems Systems not reviewed;Unavailable: Altered Mental Status Objective - Vital Signs/Intake and Output Vital Signs (last 24 hours): Vital Signs - 24 hr 10/23/15 10/23/15 10/24/15 20:00 21:00 05:53 Temperature 98.2 F 98.9 F Pulse Rate 100 H 93 H 100 H Respiratory 24 20 Rate Blood Pressure 126/79 129/75 O2 Sat by Pulse 99 100 Oximetry Intake and Output (last 12 hours): Intake & Output 10/23/15 10/24/15 10/24/15 18:59 06:59 18:59 Intake Total 900 700 Output Total 400 1025 Balance 500 -325 Intake: Tube Feeding 700 TPN/PPN 900 Output: Urine 400 1025 Urethral (Baker) 400 1025 Other: # Bowel Movements 0 - Medications Medications: Current Medications Acetylcysteine (Acetylcysteine 20%) 3 ml INH RQ6 [facility] Last Admin: 10/24/15 07:37 Dose: 3 ml Albuterol/Ipratropium (Duoneb 3 Mg/0.5 Mg (3 Ml) Ud) 3 ml INH RQ6 [facility] Last Admin: 10/24/15 07:38 Dose: 3 ml Aspirin (Aspirin) 325 mg PEG DAILY [facility] Last Admin: 10/24/15 10:08 Dose: 325 mg Clopidogrel Bisulfate (Plavix) 75 mg PEG DAILY [facility] Last Admin: 10/24/15 10:08 Dose: 75 mg Enoxaparin Sodium (Lovenox) 40 mg SC DAILY [facility] Last Admin: 10/24/15 10:08 Dose: 40 mg Phenytoin (Dilantin) 100 mg PEG TID [facility] Last Admin: 10/24/15 10:09 Dose: 100 mg Polyethylene Glycol (Miralax) 17 gm PEG BID [facility] Last Admin: 08/21/15 11:26 Dose: Not Given - Constitutional Appears: Non-toxic, No Acute Distress - Head Exam Head Exam: NORMAL INSPECTION, NORMOCEPHALIC - Eye Exam Eye Exam: Normal appearance, PERRL - Respiratory Exam Respiratory Exam: Clear to PA & Lateral, NORMAL BREATHING PATTERN Additional comments: trach collar - Cardiovascular Exam Cardiovascular Exam: REGULAR RHYTHM, +S1, +S2. absent: Gallop, Rubs - GI/Abdominal Exam GI & Abdominal Exam: Normal Bowel Sounds, Soft. absent: Tenderness - Neurological Exam Neurological exam: Altered - Psychiatric Exam Psychiatric exam: Normal Affect - Skin Skin Exam: Normal Color Assessment/Plan (1) Leukocytosis Current Visit: Yes Status: Acute Comment: 10/23: Continue monitoring. 10/22: -WBC 10.6 WNL 10/18: -f/u blood work on 10/22 10/14: -Resolved, WBC=10.5 today 10/13: -last WBC on 10/11 was 13.1 -patient afebrile but does have sacral bed sore -consider CXR if pt becomes febrile -f/u WBC today 09/20: WBC 10.7; will f/u CBC on 09/25: WBC increased from to 17.2. replace baker catheter and f/u urine culture , urinalysis. f/u CXR in AM CXR - no active disease Monitor temperature Afebrile IV Cefepime 1gm q12h started 07/21 Monitor (2) Seizures Current Visit: Yes Status: Acute Comment: 10/21: no new seizures noted 09/01: dilantin level 5.7, continue current management. 08/30--> repeat Dilantin level in am, cont meds, SZ precaution Continue dilantin 100mg via PEG TID Continue to monitor for seizure activity (3) Anoxic encephalopathy Current Visit: Yes Status: Acute Comment: 10/21: Satting 100% on trach collar with FiO2 40% on PS/CPAP 10/17: Weaned off vent, now satting well on trach collar (4) Respiratory failure Current Visit: Yes Status: Acute Comment: 10/21: Patient satting at 100% on trach collar 40% FiO2 Continue mucomyst and duonebs CXR (10/20) - enlarged cardiomediastinum silhouette with tortuous aorta. Underlying adenopathy or alternative pathologies cannot be excluded. Tracheostomy tube. Mild bibasilar atelectasis. 10/20: Patient satting at 100% on trach collar 40% FiO2 Patient coughing with thick secretions Rhonchi on exam Mucomyst and Duonebs started on 10/19 F/U CXR 10/16: patient on trach collar, tolerating well. 10/12--> cont vent mx as per Pulm, unable to wean 10/06: no rhonchi or rales auscultated. lasix 40mg IVP once given yesterday. CXR - patchy right basilar airspace opacity with granulomatous changes in the left upper lobe and pleural thickening Dr. Salgado (pul) on case - help very much appreciated (5) Bed sore Current Visit: Yes Status: Acute Comment: 10/23: Improving, continue wound care. 10/22: -wound care following patient 10/19: -examined today -continue treatment with Sensicare and Medihoney as per Wound Care 10/12--> cont LWC as per Plastic and Wound care team 10/10: Wound care recommendations: SensiCare to buttocks around ulcer, MediHoney to necrotic tissue, Position Q2 hours, Recall when necrotic tissue is soft/loose for debridement 10/09: sacral ulcer, stage [address] Panchal consulted, f/u recommendations 08/09- stage one ulcer, healed, per nursing. continue repositioning of patient q2H dolphin mattress (6) Prophylactic measure Current Visit: Yes Status: Acute Comment: Lovenox 40 mg SQ daily [facility] <Rashel Rodrigues - Last Filed: 10/24/15 18:12> Objective - Vital Signs/Intake and Output Vital Signs (last 24 hours): Vital Signs - 24 hr 10/23/15 10/23/15 10/24/15 20:00 21:00 05:53 Temperature 98.2 F 98.9 F Pulse Rate 100 H 93 H 100 H Respiratory 24 20 Rate Blood Pressure 126/79 129/75 O2 Sat by Pulse 99 100 Oximetry 10/24/15 14:00 Temperature 97.9 F Pulse Rate 111 H Respiratory 20 Rate Blood Pressure 119/98 H O2 Sat by Pulse 98 Oximetry Intake and Output (last 12 hours): Intake & Output 10/23/15 10/24/15 10/24/15 18:59 06:59 18:59 Intake Total 900 700 Output Total 400 1025 Balance 500 -325 Intake: Tube Feeding 700 TPN/PPN 900 Output: Urine 400 1025 Urethral (Baker) 400 1025 Other: # Bowel Movements 0 - Medications Medications: Current Medications Acetylcysteine (Acetylcysteine 20%) 3 ml INH RQ6 [facility] Last Admin: 10/24/15 13:26 Dose: 3 ml Aspirin (Aspirin) 325 mg PEG DAILY [facility] Last Admin: 10/24/15 10:08 Dose: 325 mg Clopidogrel Bisulfate (Plavix) 75 mg PEG DAILY [facility] Last Admin: 10/24/15 10:08 Dose: 75 mg Enoxaparin Sodium (Lovenox) 40 mg SC DAILY [facility] Last Admin: 10/24/15 10:08 Dose: 40 mg Phenytoin (Dilantin) 100 mg PEG TID [facility] Last Admin: 10/24/15 17:44 Dose: 100 mg Polyethylene Glycol (Miralax) 17 gm PEG BID [facility] Last Admin: 08/21/15 11:26 Dose: Not Given Assessment/Plan (1) Anoxic encephalopathy Current Visit: Yes Status: Acute Comment: 10/21: Satting 100% on trach collar with FiO2 40% on PS/CPAP 10/17: Weaned off vent, now satting well on trach collar (2) STEMI (ST elevation myocardial infarction) Current Visit: Yes Status: Acute Comment: cardiac stents on 06/13/15. Continue Lisinopril 5mg PO daily Continue Plavix 75mg PO daily Continue ASA 325mg PO daily (3) Respiratory failure Current Visit: Yes Status: Acute Comment: 10/21: Patient satting at 100% on trach collar 40% FiO2 Continue mucomyst and duonebs CXR (10/20) - enlarged cardiomediastinum silhouette with tortuous aorta. Underlying adenopathy or alternative pathologies cannot be excluded. Tracheostomy tube. Mild bibasilar atelectasis. 10/20: Patient satting at 100% on trach collar 40% FiO2 Patient coughing with thick secretions Rhonchi on exam Mucomyst and Duonebs started on 10/19 F/U CXR 10/16: patient on trach collar, tolerating well. 10/12--> cont vent mx as per Pulm, unable to wean 10/06: no rhonchi or rales auscultated. lasix 40mg IVP once given yesterday. CXR - patchy right basilar airspace opacity with granulomatous changes in the left upper lobe and pleural thickening Dr. Salgado (pulm) on case - help very much appreciated (4) Seizures Current Visit: Yes Status: Acute Comment: 10/21: no new seizures noted 09/01: dilantin level 5.7, continue current management. 08/30--> repeat Dilantin level in am, cont meds, SZ precaution Continue dilantin 100mg via PEG TID Continue to monitor for seizure activity (5) Prophylactic measure Current Visit: Yes Status: Acute Comment: Lovenox 40 mg SQ daily SCDs (6) Bed sore Current Visit: Yes Status: Acute Comment: 10/23: Improving, continue wound care. 10/22: -wound care following patient 10/19: -examined today -continue treatment with Sensicare and Medihoney as per Wound Care 10/12--> cont LWC as per Plastic and Wound care team 10/10: Wound care recommendations: SensiCare to buttocks around ulcer, MediHoney to necrotic tissue, Position Q2 hours, Recall when necrotic tissue is soft/loose for debridement 10/09: sacral ulcer, stage [address] Panchal consulted, f/u recommendations 08/09- stage one ulcer, healed, per nursing. continue repositioning of patient q2H delores sibley Attending/Attestation - Attestation I have personally seen and examined this patient.: Yes I have fully participated in the care of the patient.: Yes I have reviewed all pertinent clinical information: Yes Notes (Text): 10/24/15 18:11 Patient was seen and examined during round with residents. pt is still on T C 40%... tolerating well no new events. cont supportive mx.
[2015-10-25] MEDS: Enoxaparin 40 mg Syringe SC SCH (09:29)
[2015-10-25] MEDS: Phenytoin 100 mg/4 ml Oral Susp UD PEG SCH ×3 (09:29→17:20)
--- NOTE | 2015-10-25 12:46 | CP.PCM.PN ---
<Scout Marinelli - Last Filed: 10/25/15 12:23> Subjective - Subjective Subjective: Pt seen and examined at bedside this morning. Pt off vent support and awake. Unresponsive to verbal commands. Unable to provide ROS. Per pt family, they want to feed ginseng clear soup through pt's PEG tube. Attending agreed. Review of Systems - Review of Systems Systems not reviewed;Unavailable: Altered Mental Status Objective - Vital Signs/Intake and Output Vital Signs (last 24 hours): Vital Signs - 24 hr 10/24/15 10/24/15 10/25/15 14:00 21:57 05:30 Temperature 97.9 F 98.4 F 98.0 F Pulse Rate 111 H 88 94 H Respiratory 20 20 18 Rate Blood Pressure 119/98 H 134/90 145/91 H O2 Sat by Pulse 98 100 99 Oximetry 10/25/15 08:07 Temperature Pulse Rate 94 H Respiratory Rate Blood Pressure O2 Sat by Pulse Oximetry Intake and Output (last 12 hours): Intake & Output 10/24/15 10/25/15 10/25/15 18:59 06:59 18:59 Intake Total 900 Output Total 900 Balance 900 -900 Intake: Tube Feeding 900 Output: Gastric Amount 0 Stomach 0 Urine 900 Urethral (Baker) 900 Other: # Bowel Movements 1 - Medications Medications: Current Medications Acetylcysteine (Acetylcysteine 20%) 3 ml INH RQ6 [facility] Last Admin: 10/24/15 19:19 Dose: Not Given Albuterol/Ipratropium (Duoneb 3 Mg/0.5 Mg (3 Ml) Ud) 3 ml INH RQ6 [facility] Aspirin (Aspirin) 325 mg PEG DAILY [facility] Last Admin: 10/25/15 09:29 Dose: 325 mg Clopidogrel Bisulfate (Plavix) 75 mg PEG DAILY [facility] Last Admin: 10/25/15 09:29 Dose: 75 mg Enoxaparin Sodium (Lovenox) 40 mg SC DAILY [facility] Last Admin: 10/25/15 09:29 Dose: 40 mg Lisinopril (Zestril) 5 mg PO DAILY [facility] Last Admin: 10/25/15 09:31 Dose: 5 mg Phenytoin (Dilantin) 100 mg PEG TID [facility] Last Admin: 10/25/15 09:29 Dose: 100 mg Polyethylene Glycol (Miralax) 17 gm PEG BID [facility] Last Admin: 09/29/15 11:26 Dose: Not Given - Constitutional Appears: Non-toxic, No Acute Distress - Head Exam Head Exam: ATRAUMATIC, NORMAL INSPECTION, NORMOCEPHALIC - Eye Exam Eye Exam: Normal appearance Pupil Exam: NORMAL ACCOMODATION - ENT Exam Additional comments: Trach collar - Respiratory Exam Respiratory Exam: Clear to PA & Lateral, NORMAL BREATHING PATTERN. absent: Rales, Rhonchi - Cardiovascular Exam Cardiovascular Exam: REGULAR RHYTHM, +S1, +S2 - GI/Abdominal Exam GI & Abdominal Exam: Normal Bowel Sounds, Soft. absent: Tenderness Additional comments: PEG tube - Neurological Exam Neurological exam: Altered - Skin Skin Exam: Normal Color Assessment/Plan (1) Leukocytosis Current Visit: Yes Status: Acute Comment: 10/23: Continue monitoring. 10/22: -WBC 10.6 WNL 10/18: -f/u blood work on 10/22 10/14: -Resolved, WBC=10.5 today 10/13: -last WBC on 10/11 was 13.1 -patient afebrile but does have sacral bed sore -consider CXR if pt becomes febrile -f/u WBC today 09/20: WBC 10.7; will f/u CBC on 09/25: WBC increased from to 17.2. replace baker catheter and f/u urine culture , urinalysis. f/u CXR in AM CXR - no active disease Monitor temperature Afebrile IV Cefepime 1gm q12h started 07/21 Monitor (2) Seizures Current Visit: Yes Status: Acute Comment: 10/21: no new seizures noted 09/01: dilantin level 5.7, continue current management. 08/30--> repeat Dilantin level in am, cont meds, SZ precaution Continue dilantin 100mg via PEG TID Continue to monitor for seizure activity (3) Anoxic encephalopathy Current Visit: Yes Status: Acute Comment: 10/21: Satting 100% on trach collar with FiO2 40% on PS/CPAP 10/17: Weaned off vent, now satting well on trach collar (4) Respiratory failure Current Visit: Yes Status: Acute Comment: 10/21: Patient satting at 100% on trach collar 40% FiO2 Continue mucomyst and duonebs CXR (10/20) - enlarged cardiomediastinum silhouette with tortuous aorta. Underlying adenopathy or alternative pathologies cannot be excluded. Tracheostomy tube. Mild bibasilar atelectasis. 10/20: Patient satting at 100% on trach collar 40% FiO2 Patient coughing with thick secretions Rhonchi on exam Mucomyst and Duonebs started on 10/19 F/U CXR 10/16: patient on trach collar, tolerating well. 10/12--> cont vent mx as per Pulm, unable to wean 10/06: no rhonchi or rales auscultated. lasix 40mg IVP once given yesterday. CXR - patchy right basilar airspace opacity with granulomatous changes in the left upper lobe and pleural thickening Dr. Salgado (pul) on case - help very much appreciated (5) Bed sore Current Visit: Yes Status: Acute Comment: 10/23: Improving, continue wound care. 10/22: -wound care following patient 10/19: -examined today -continue treatment with Sensicare and Medihoney as per Wound Care 10/12--> cont LWC as per Plastic and Wound care team 10/10: Wound care recommendations: SensiCare to buttocks around ulcer, MediHoney to necrotic tissue, Position Q2 hours, Recall when necrotic tissue is soft/loose for debridement 10/09: sacral ulcer, stage [address] Dr[address] Panchal consulted, f/u recommendations 08/09- stage one ulcer, healed, per nursing. continue repositioning of patient q2H dolphin mattress (6) Prophylactic measure Current Visit: Yes Status: Acute Comment: Lovenox 40 mg SQ daily [facility] <Rashel Rodrigues - Last Filed: 10/25/15 17:56> Objective - Vital Signs/Intake and Output Vital Signs (last 24 hours): Vital Signs - 24 hr 10/24/15 10/25/15 10/25/15 21:57 05:30 08:07 Temperature 98.4 F 98.0 F Pulse Rate 88 94 H 94 H Respiratory 20 18 Rate Blood Pressure 134/90 145/91 H O2 Sat by Pulse 100 99 Oximetry 10/25/15 14:56 Temperature 97.9 F Pulse Rate 99 H Respiratory 24 Rate Blood Pressure 159/83 H O2 Sat by Pulse 97 Oximetry Intake and Output (last 12 hours): Intake & Output 10/24/15 10/25/15 10/25/15 18:59 06:59 18:59 Intake Total 900 1200 Output Total 900 400 Balance 900 -900 800 Intake: Tube Feeding 900 800 Other 400 Output: Gastric Amount 0 Stomach 0 Urine 900 400 Urethral (Baker) 900 400 Other: # Bowel Movements 1 - Medications Medications: Current Medications Acetylcysteine (Acetylcysteine 20%) 3 ml INH RQ6 [facility] Last Admin: 10/24/15 19:19 Dose: Not Given Albuterol/Ipratropium (Duoneb 3 Mg/0.5 Mg (3 Ml) Ud) 3 ml INH RQ6 [facility] Aspirin (Aspirin) 325 mg PEG DAILY [facility] Last Admin: 10/25/15 09:29 Dose: 325 mg Clopidogrel Bisulfate (Plavix) 75 mg PEG DAILY [facility] Last Admin: 10/25/15 09:29 Dose: 75 mg Enoxaparin Sodium (Lovenox) 40 mg SC DAILY [facility] Last Admin: 10/25/15 09:29 Dose: 40 mg Lisinopril (Zestril) 5 mg PO DAILY [facility] Last Admin: 10/25/15 09:31 Dose: 5 mg Phenytoin (Dilantin) 100 mg PEG TID [facility] Last Admin: 10/25/15 17:20 Dose: 100 mg Polyethylene Glycol (Miralax) 17 gm PEG BID [facility] Last Admin: 08/21/15 11:26 Dose: Not Given Assessment/Plan (1) Anoxic encephalopathy Current Visit: Yes Status: Acute Comment: 10/21: Satting 100% on trach collar with FiO2 40% on PS/CPAP 10/17: Weaned off vent, now satting well on trach collar (2) STEMI (ST elevation myocardial infarction) Current Visit: Yes Status: Acute Comment: cardiac stents on 06/13/15. Continue Lisinopril 5mg PO daily Continue Plavix 75mg PO daily Continue ASA 325mg PO daily (3) Respiratory failure Current Visit: Yes Status: Acute Comment: 10/21: Patient satting at 100% on trach collar 40% FiO2 Continue mucomyst and duonebs CXR (10/20) - enlarged cardiomediastinum silhouette with tortuous aorta. Underlying adenopathy or alternative pathologies cannot be excluded. Tracheostomy tube. Mild bibasilar atelectasis. 10/20: Patient satting at 100% on trach collar 40% FiO2 Patient coughing with thick secretions Rhonchi on exam Mucomyst and Duonebs started on 10/19 F/U CXR 10/16: patient on trach collar, tolerating well. 10/12--> cont vent mx as per Pulm, unable to wean 10/06: no rhonchi or rales auscultated. lasix 40mg IVP once given yesterday. CXR - patchy right basilar airspace opacity with granulomatous changes in the left upper lobe and pleural thickening Dr. Salgado (pul) on case - help very much appreciated (4) Seizures Current Visit: Yes Status: Acute Comment: 10/21: no new seizures noted 09/01: dilantin level 5.7, continue current management. 08/30--> repeat Dilantin level in am, cont meds, SZ precaution Continue dilantin 100mg via PEG TID Continue to monitor for seizure activity (5) Prophylactic measure Current Visit: Yes Status: Acute Comment: Lovenox 40 mg SQ daily [facility] (6) Bed sore Current Visit: Yes Status: Acute Comment: 10/23: Improving, continue wound care. 10/22: -wound care following patient 10/19: -examined today -continue treatment with Sensicare and Medihoney as per Wound Care 10/12--> cont LWC as per Plastic and Wound care team 10/10: Wound care recommendations: SensiCare to buttocks around ulcer, MediHoney to necrotic tissue, Position Q2 hours, Recall when necrotic tissue is soft/loose for debridement 10/09: sacral ulcer, stage [address] Panchal consulted, f/u recommendations 08/09- stage one ulcer, healed, per nursing. continue repositioning of patient q2H [facility] Attending/Attestation - Attestation I have personally seen and examined this patient.: Yes I have fully participated in the care of the patient.: Yes I have reviewed all pertinent clinical information: Yes Notes (Text): 10/25/15 17:55 Patient was seen and examined during round with residents. Patient is more awake and following with the moving objects. Patient family at the bedside willing to treat him with [place] soup. No new acute events. Awaiting discharge planning placement of the family choice.
[2015-10-25] MEDS: Albuterol-Ipratrop 3 mg / 0.5 (3 ml) UD INH SCH (19:25)
[2015-10-25] MEDS: Acetylcysteine 20% Inhal Soln (4ml) INH SCH (19:25)
[2015-10-26] MEDS: Albuterol-Ipratrop 3 mg / 0.5 (3 ml) UD INH SCH ×4 (01:14→19:52)
[2015-10-26] MEDS: Acetylcysteine 20% Inhal Soln (4ml) INH SCH ×4 (01:15→19:52)
[2015-10-26] MEDS: Enoxaparin 40 mg Syringe SC SCH (10:33)
[2015-10-26] MEDS: Phenytoin 100 mg/4 ml Oral Susp UD PEG SCH ×3 (10:36→17:15)
--- NOTE | 2015-10-26 13:40 | CP.PCM.PN ---
<Scout Marinelli - Last Filed: 10/26/15 13:37> Subjective - Subjective Subjective: Pt seen and examined at bedside this morning. Pt off vent support and awake. Unresponsive to verbal commands. Unable to provide ROS. Review of Systems - Review of Systems Systems not reviewed;Unavailable: Acuity of Condition Objective - Vital Signs/Intake and Output Vital Signs (last 24 hours): Vital Signs - 24 hr 10/25/15 10/25/15 10/26/15 14:56 22:00 06:00 Temperature 97.9 F 99.5 F 99.1 F Pulse Rate 99 H 107 H Respiratory 24 20 19 Rate Blood Pressure 159/83 H 108/67 123/80 O2 Sat by Pulse 97 104 H 98 Oximetry Intake and Output (last 12 hours): Intake & Output 10/25/15 10/26/15 10/26/15 18:59 06:59 18:59 Intake Total 1200 900 Output Total 400 1100 Balance 800 -200 Intake: Tube Feeding 800 700 Other 400 200 Output: Urine 400 1100 Urethral (Baker) 400 1100 Other: # Bowel Movements 1 - Medications Medications: Current Medications Acetylcysteine (Acetylcysteine 20%) 3 ml INH RQ6 [facility] Last Admin: 10/26/15 13:24 Dose: 3 ml Albuterol/Ipratropium (Duoneb 3 Mg/0.5 Mg (3 Ml) Ud) 3 ml INH RQ6 [facility] Last Admin: 10/26/15 13:24 Dose: 3 ml Aspirin (Aspirin) 325 mg PEG DAILY [facility] Last Admin: 10/26/15 10:32 Dose: 325 mg Clopidogrel Bisulfate (Plavix) 75 mg PEG DAILY [facility] Last Admin: 10/26/15 10:32 Dose: 75 mg Enoxaparin Sodium (Lovenox) 40 mg SC DAILY [facility] Last Admin: 10/26/15 10:33 Dose: 40 mg Lisinopril (Zestril) 5 mg PO DAILY [facility] Last Admin: 10/26/15 10:33 Dose: 5 mg Phenytoin (Dilantin) 100 mg PEG TID [facility] Last Admin: 10/26/15 10:36 Dose: 100 mg Polyethylene Glycol (Miralax) 17 gm PEG BID [facility] Last Admin: 08/21/15 11:26 Dose: Not Given - Constitutional Appears: Non-toxic, No Acute Distress - Head Exam Head Exam: NORMAL INSPECTION - Eye Exam Eye Exam: Normal appearance, PERRL - Respiratory Exam Respiratory Exam: Rales, NORMAL BREATHING PATTERN - Cardiovascular Exam Cardiovascular Exam: REGULAR RHYTHM, +S1, +S2. absent: Gallop, Rubs - GI/Abdominal Exam GI & Abdominal Exam: Normal Bowel Sounds, Soft - Neurological Exam Neurological exam: Alert, Altered - Skin Skin Exam: Normal Color Assessment/Plan (1) Leukocytosis Current Visit: Yes Status: Acute Comment: 10/26: Continue monitoring. F/U Thursday labs. 10/22: -WBC 10.6 WNL 10/18: -f/u blood work on 10/22 10/14: -Resolved, WBC=10.5 today 10/13: -last WBC on 10/11 was 13.1 -patient afebrile but does have sacral bed sore -consider CXR if pt becomes febrile -f/u WBC today 09/20: WBC 10.7; will f/u CBC on 09/25: WBC increased from to 17.2. replace baker catheter and f/u urine culture , urinalysis. f/u CXR in AM CXR - no active disease Monitor temperature Afebrile IV Cefepime 1gm q12h started 07/21 Monitor (2) Seizures Current Visit: Yes Status: Acute Comment: 10/21: no new seizures noted 09/01: dilantin level 5.7, continue current management. 08/30--> repeat Dilantin level in am, cont meds, SZ precaution Continue dilantin 100mg via PEG TID Continue to monitor for seizure activity (3) Anoxic encephalopathy Current Visit: Yes Status: Acute Comment: 10/21: Satting 100% on trach collar with FiO2 40% on PS/CPAP 10/17: Weaned off vent, now satting well on trach collar (4) Respiratory failure Current Visit: Yes Status: Acute Comment: 10/21: Patient satting at 100% on trach collar 40% FiO2 Continue mucomyst and duonebs CXR (10/20) - enlarged cardiomediastinum silhouette with tortuous aorta. Underlying adenopathy or alternative pathologies cannot be excluded. Tracheostomy tube. Mild bibasilar atelectasis. 10/20: Patient satting at 100% on trach collar 40% FiO2 Patient coughing with thick secretions Rhonchi on exam Mucomyst and Duonebs started on 10/19 F/U CXR 10/16: patient on trach collar, tolerating well. 10/12--> cont vent mx as per Pulm, unable to wean 10/06: no rhonchi or rales auscultated. lasix 40mg IVP once given yesterday. CXR - patchy right basilar airspace opacity with granulomatous changes in the left upper lobe and pleural thickening Dr. Salgado (pul) on case - help very much appreciated (5) Bed sore Current Visit: Yes Status: Acute Comment: 10/23: Improving, continue wound care. 10/22: -wound care following patient 10/19: -examined today -continue treatment with Sensicare and Medihoney as per Wound Care 10/12--> cont LWC as per Plastic and Wound care team 10/10: Wound care recommendations: SensiCare to buttocks around ulcer, MediHoney to necrotic tissue, Position Q2 hours, Recall when necrotic tissue is soft/loose for debridement 10/09: sacral ulcer, stage [address] Dr[address] Panchal consulted, f/u recommendations 08/09- stage one ulcer, healed, per nursing. continue repositioning of patient q2H dolphin mattress (6) Prophylactic measure Current Visit: Yes Status: Acute Comment: Lovenox 40 mg SQ daily [facility] <MadisynRashel silverman - Last Filed: 10/26/15 17:30> Objective - Vital Signs/Intake and Output Vital Signs (last 24 hours): Vital Signs - 24 hr 10/25/15 10/26/15 10/26/15 22:00 06:00 14:00 Temperature 99.5 F 99.1 F 98.1 F Pulse Rate 107 H 97 H Respiratory 20 19 16 Rate Blood Pressure 108/67 123/80 103/70 O2 Sat by Pulse 104 H 98 98 Oximetry Intake and Output (last 12 hours): Intake & Output 10/25/15 10/26/15 10/26/15 18:59 06:59 18:59 Intake Total 1200 900 Output Total 400 1100 500 Balance 800 -200 -500 Intake: Tube Feeding 800 700 Other 400 200 Output: Urine 400 1100 500 Urethral (Baker) 400 1100 500 Other: # Bowel Movements 1 0 - Medications Medications: Current Medications Acetylcysteine (Acetylcysteine 20%) 3 ml INH RQ6 [facility] Last Admin: 10/26/15 13:24 Dose: 3 ml Albuterol/Ipratropium (Duoneb 3 Mg/0.5 Mg (3 Ml) Ud) 3 ml INH RQ6 [facility] Last Admin: 10/26/15 13:24 Dose: 3 ml Aspirin (Aspirin) 325 mg PEG DAILY [facility] Last Admin: 10/26/15 10:32 Dose: 325 mg Clopidogrel Bisulfate (Plavix) 75 mg PEG DAILY [facility] Last Admin: 10/26/15 10:32 Dose: 75 mg Enoxaparin Sodium (Lovenox) 40 mg SC DAILY [facility] Last Admin: 10/26/15 10:33 Dose: 40 mg Lisinopril (Zestril) 5 mg PO DAILY [facility] Last Admin: 10/26/15 10:33 Dose: 5 mg Phenytoin (Dilantin) 100 mg PEG TID [facility] Last Admin: 10/26/15 17:15 Dose: 100 mg Polyethylene Glycol (Miralax) 17 gm PEG BID [facility] Last Admin: 08/21/15 11:26 Dose: Not Given Assessment/Plan (1) Anoxic encephalopathy Current Visit: Yes Status: Acute Comment: 10/21: Satting 100% on trach collar with FiO2 40% on PS/CPAP 10/17: Weaned off vent, now satting well on trach collar (2) STEMI (ST elevation myocardial infarction) Current Visit: Yes Status: Acute Comment: cardiac stents on 06/13/15. Continue Lisinopril 5mg PO daily Continue Plavix 75mg PO daily Continue ASA 325mg PO daily (3) Respiratory failure Current Visit: Yes Status: Acute Comment: 10/21: Patient satting at 100% on trach collar 40% FiO2 Continue mucomyst and duonebs CXR (10/20) - enlarged cardiomediastinum silhouette with tortuous aorta. Underlying adenopathy or alternative pathologies cannot be excluded. Tracheostomy tube. Mild bibasilar atelectasis. 10/20: Patient satting at 100% on trach collar 40% FiO2 Patient coughing with thick secretions Rhonchi on exam Mucomyst and Duonebs started on 10/19 F/U CXR 10/16: patient on trach collar, tolerating well. 10/12--> cont vent mx as per Pulm, unable to wean 10/06: no rhonchi or rales auscultated. lasix 40mg IVP once given yesterday. CXR - patchy right basilar airspace opacity with granulomatous changes in the left upper lobe and pleural thickening Dr. Salgado (pul) on case - help very much appreciated (4) Seizures Current Visit: Yes Status: Acute Comment: 10/21: no new seizures noted 09/01: dilantin level 5.7, continue current management. 08/30--> repeat Dilantin level in am, cont meds, SZ precaution Continue dilantin 100mg via PEG TID Continue to monitor for seizure activity (5) Prophylactic measure Current Visit: Yes Status: Acute Comment: Lovenox 40 mg SQ daily [facility]CD[facility] (6) Bed sore Current Visit: Yes Status: Acute Comment: 10/23: Improving, continue wound care. 10/22: -wound care following patient 10/19: -examined today -continue treatment with Sensicare and Medihoney as per Wound Care 10/12--> cont LWC as per Plastic and Wound care team 10/10: Wound care recommendations: SensiCare to buttocks around ulcer, MediHoney to necrotic tissue, Position Q2 hours, Recall when necrotic tissue is soft/loose for debridement 10/09: sacral ulcer, stage [address] Panchal consulted, f/u recommendations 08/09- stage one ulcer, healed, per nursing. continue repositioning of patient q2H [facility] Attending/Attestation - Attestation I have personally seen and examined this patient.: Yes I have fully participated in the care of the patient.: Yes I have reviewed all pertinent clinical information: Yes
[2015-10-27] MEDS: Albuterol-Ipratrop 3 mg / 0.5 (3 ml) UD INH SCH ×4 (01:26→19:24)
[2015-10-27] MEDS: Acetylcysteine 20% Inhal Soln (4ml) INH SCH ×4 (01:26→19:24)
--- NOTE | 2015-10-27 06:24 | CP.PCM.PN ---
<Mariella Wagner - Last Filed: 10/27/15 06:21> Subjective - Subjective Subjective: Patient was seen and examined at bedside. Nursing staff cleaning patient and repositioning. Sacral ulcer Stage II visualized. No acute distress at this time. Patient is non-verbal and unable to provide ROS. Family at bedside. Review of Systems - Review of Systems Systems not reviewed;Unavailable: Other (anoxic brain injury) Objective - Vital Signs/Intake and Output Vital Signs (last 24 hours): Vital Signs - 24 hr 10/26/15 10/26/15 14:00 22:48 Temperature 98.1 F 98.4 F Pulse Rate 97 H 103 H Respiratory 16 18 Rate Blood Pressure 103/70 114/74 O2 Sat by Pulse 98 98 Oximetry Intake and Output (last 12 hours): Intake & Output 10/26/15 10/26/15 10/27/15 06:59 18:59 06:59 Intake Total 900 Output Total 1100 500 600 Balance -200 -500 -600 Intake: Tube Feeding 700 Other 200 Output: Urine 1100 500 600 Urethral (Yoo) 1100 500 600 Other: # Bowel Movements 1 0 - Medications Medications: Current Medications Acetylcysteine (Acetylcysteine 20%) [address] [facility] Last Admin: 10/27/15 01:26 Dose: 3 ml Albuterol/Ipratropium (Duoneb 3 Mg/0.5 Mg (3 Ml) Ud) [address] [facility] Last Admin: 10/27/15 01:26 Dose: 3 ml Aspirin (Aspirin) [address] [facility] Last Admin: 10/26/15 10:32 Dose: 325 mg Clopidogrel Bisulfate (Plavix) [address] [facility] Last Admin: 10/26/15 10:32 Dose: 75 mg Enoxaparin Sodium (Lovenox) [address] [facility] Last Admin: 10/26/15 10:33 Dose: 40 mg Lisinopril (Zestril) [address] [facility] Last Admin: 10/26/15 10:33 Dose: 5 mg Phenytoin (Dilantin) [address] [facility] Last Admin: 10/26/15 17:15 Dose: 100 mg Polyethylene Glycol (Miralax) [address] [facility] Last Admin: 08/21/15 11:26 Dose: Not Given - Constitutional Appears: No Acute Distress, Chronically Ill - Head Exam Head Exam: ATRAUMATIC, NORMAL INSPECTION, NORMOCEPHALIC - Eye Exam Eye Exam: EOMI, Normal appearance - ENT Exam ENT Exam: Mucous Membranes Moist - Respiratory Exam Respiratory Exam: Clear to PA & Lateral. absent: Rales, Rhonchi, Wheezes - Cardiovascular Exam Cardiovascular Exam: REGULAR RHYTHM, +S1, +S2 - GI/Abdominal Exam GI & Abdominal Exam: Normal Bowel Sounds, Soft. absent: Distended - Extremities Exam Extremities exam: pedal pulses present. absent: full ROM - Neurological Exam Neurological exam: Altered - Skin Additional comments: +sacral decub Stage II Assessment/Plan (1) Anoxic encephalopathy Current Visit: Yes Status: Acute Comment: Satting well on trach collar with FiO2 40% on PS/CPAP 10/17: Weaned off vent, now satting well on trach collar (2) Respiratory failure Current Visit: Yes Status: Acute Comment: Satting well on trach collar with FiO2 40% on PS/CPAP CXR (10/20) - enlarged cardiomediastinum silhouette with tortuous aorta. Underlying adenopathy or alternative pathologies cannot be excluded. Tracheostomy tube. Mild bibasilar atelectasis. 10/20: Patient satting at 100% on trach collar 40% FiO2 Patient coughing with thick secretions Rhonchi on exam Mucomyst and Duonebs started on 10/19 10/17:Weaned off vent, now satting well on trach collar 10/16: patient on trach collar, tolerating well. 10/12--> cont vent mx as per Pulm, unable to wean 10/06: no rhonchi or rales auscultated. lasix 40mg IVP once given yesterday. CXR - patchy right basilar airspace opacity with granulomatous changes in the left upper lobe and pleural thickening Dr. Salgado (pulm) on case - help very much appreciated (3) STEMI (ST elevation myocardial infarction) Current Visit: Yes Status: Acute Comment: cardiac stents on 06/13/15. Continue Lisinopril 5mg PO daily Continue Plavix 75mg PO daily Continue ASA 325mg PO daily (4) Seizures Current Visit: Yes Status: Acute Comment: 10/27: no new seizures noted 09/01: dilantin level 5.7, continue current management. 08/30--> repeat Dilantin level in am, cont meds, SZ precaution Continue dilantin 100mg via PEG TID Continue to monitor for seizure activity (5) Deep tissue injury Current Visit: Yes Status: Acute Comment: Sacral Decub ulcer Stage II. Continue wound care Qshift As per wound care, apply protective ointment daily as a protective measure. Desitin TOP BID Nystatin Powder BID Continue body checks. (6) Prophylactic measure Current Visit: Yes Status: Acute Comment: Lovenox 40 mg SQ daily SCD[facility] <Rashel Rodrigues - Last Filed: 10/27/15 17:19> Objective - Vital Signs/Intake and Output Vital Signs (last 24 hours): Vital Signs - 24 hr 10/26/15 10/27/15 10/27/15 22:48 06:36 08:16 Temperature 98.4 F 98.7 F Pulse Rate 103 H 92 H 92 H Respiratory 18 20 Rate Blood Pressure 114/74 129/86 O2 Sat by Pulse 98 96 Oximetry 10/27/15 14:46 Temperature 98.9 F Pulse Rate 108 H Respiratory 20 Rate Blood Pressure 115/77 O2 Sat by Pulse 100 Oximetry Intake and Output (last 12 hours): Intake & Output 10/26/15 10/27/15 10/27/15 18:59 06:59 18:59 Intake Total 850 Output Total 500 600 850 Balance -500 -600 0 Intake: Tube Feeding 700 Other 150 Output: Urine 500 600 850 Urethral (Yoo) 500 600 850 Other: # Bowel Movements 0 1 - Medications Medications: Current Medications Acetylcysteine (Acetylcysteine 20%) [address] [facility] Last Admin: 10/27/15 13:18 Dose: 3 ml Albuterol/Ipratropium (Duoneb 3 Mg/0.5 Mg (3 Ml) Ud) [address] [facility] Last Admin: 10/27/15 13:18 Dose: 3 ml Aspirin (Aspirin) [address] [facility] Last Admin: 10/27/15 09:05 Dose: 325 mg Clopidogrel Bisulfate (Plavix) [address] [facility] Last Admin: 10/27/15 09:05 Dose: 75 mg Lisinopril (Zestril) [address] [facility] Last Admin: 10/27/15 09:05 Dose: 5 mg Phenytoin (Dilantin) [address] [facility] Last Admin: 10/27/15 17:10 Dose: 100 mg Polyethylene Glycol (Miralax) 17 gm PEG BID [facility] Last Admin: 08/21/15 11:26 Dose: Not Given Assessment/Plan (1) Anoxic encephalopathy Current Visit: Yes Status: Acute Comment: Satting well on trach collar with FiO2 40% on PS/CPAP 10/17: Weaned off vent, now satting well on trach collar (2) STEMI (ST elevation myocardial infarction) Current Visit: Yes Status: Acute Comment: cardiac stents on 06/13/15. Continue Lisinopril 5mg PO daily Continue Plavix 75mg PO daily Continue ASA 325mg PO daily (3) Respiratory failure Current Visit: Yes Status: Acute Comment: Satting well on trach collar with FiO2 40% on PS/CPAP CXR (10/20) - enlarged cardiomediastinum silhouette with tortuous aorta. Underlying adenopathy or alternative pathologies cannot be excluded. Tracheostomy tube. Mild bibasilar atelectasis. 10/20: Patient satting at 100% on trach collar 40% FiO2 Patient coughing with thick secretions Rhonchi on exam Mucomyst and Duonebs started on 10/19 10/17:Weaned off vent, now satting well on trach collar 10/16: patient on trach collar, tolerating well. 10/12--> cont vent mx as per Pulm, unable to wean 10/06: no rhonchi or rales auscultated. lasix 40mg IVP once given yesterday. CXR - patchy right basilar airspace opacity with granulomatous changes in the left upper lobe and pleural thickening Dr. Salgado (pul) on case - help very much appreciated (4) Seizures Current Visit: Yes Status: Acute Comment: 10/27: no new seizures noted 09/01: dilantin level 5.7, continue current management. 08/30--> repeat Dilantin level in am, cont meds, SZ precaution Continue dilantin 100mg via PEG TID Continue to monitor for seizure activity (5) Prophylactic measure Current Visit: Yes Status: Acute Comment: Lovenox 40 mg SQ daily SCDs (6) Bed sore Current Visit: Yes Status: Acute Comment: 10/23: Improving, continue wound care. 10/22: -wound care following patient 10/19: -examined today -continue treatment with [facility] and Medih[facility] as per Wound Care 10/12--> cont LWC as per Plastic and Wound care team 10/10: Wound care recommendations: [facility] to buttocks around ulcer, MediHoney to necrotic tissue, Position Q2 hours, Recall when necrotic tissue is soft/loose for debridement 10/09: sacral ulcer, stage [address] Panchal consulted, f/u recommendations 08/09- stage one ulcer, healed, per nursing. [facility] Attending/Attestation - Attestation I have personally seen and examined this patient.: Yes I have fully participated in the care of the patient.: Yes I have reviewed all pertinent clinical information: Yes
[2015-10-27] MEDS: Enoxaparin 40 mg Syringe SC SCH (09:04)
[2015-10-27] MEDS: Phenytoin 100 mg/4 ml Oral Susp UD PEG SCH ×3 (09:05→17:10)
[2015-10-28] MEDS: Acetylcysteine 20% Inhal Soln (4ml) INH SCH ×4 (01:28→19:53)
[2015-10-28] MEDS: Albuterol-Ipratrop 3 mg / 0.5 (3 ml) UD INH SCH ×4 (01:28→19:53)
--- NOTE | 2015-10-28 06:32 | CP.PCM.PN ---
<Mariella Wagner - Last Filed: 10/28/15 06:30> Subjective - Subjective Subjective: Medicine Progress Note- PGY1: Patient seen and examined at bedside this AM. at bed side concerned about patient. requested patient be placed back on ventilator. Patient currently saturating well on trach collar with FIO2 at 40%. Explained to that patient is in no acute distress and currently at baseline. Patient resting comfortably in bed. Review of Systems - Review of Systems Systems not reviewed;Unavailable: Other (anoxic brain injury) Objective - Vital Signs/Intake and Output Vital Signs (last 24 hours): Vital Signs - 24 hr 10/27/15 10/27/15 10/27/15 06:36 08:16 14:46 Temperature 98.7 F 98.9 F Pulse Rate 92 H 92 H 108 H Respiratory 20 20 Rate Blood Pressure 129/86 115/77 O2 Sat by Pulse 96 100 Oximetry 10/27/15 10/28/15 21:48 05:57 Temperature 97.9 F 98 F Pulse Rate 109 H 90 Respiratory 18 20 Rate Blood Pressure 133/81 115/71 O2 Sat by Pulse 99 99 Oximetry Intake and Output (last 12 hours): Intake & Output 10/27/15 10/27/15 10/28/15 06:59 18:59 06:59 Intake Total 850 Output Total 078 328 5139 Balance -600 0 -2000 Intake: Tube Feeding 700 Other 150 Output: Urine 262 339 8925 Urethral (Yoo) 387 380 6622 Other: # Bowel Movements 1 - Medications Medications: Current Medications Acetylcysteine (Acetylcysteine 20%) 3 ml INH RQ6 [facility] Last Admin: 10/28/15 01:28 Dose: 3 ml Albuterol/Ipratropium (Duoneb 3 Mg/0.5 Mg (3 Ml) Ud) 3 ml INH RQ6 [facility] Last Admin: 10/28/15 01:28 Dose: 3 ml Aspirin (Aspirin) 325 mg PEG DAILY [facility] Last Admin: 10/27/15 09:05 Dose: 325 mg Clopidogrel Bisulfate (Plavix) 75 mg PEG DAILY [facility] Last Admin: 10/27/15 09:05 Dose: 75 mg Lisinopril (Zestril) 5 mg PO DAILY [facility] Last Admin: 10/27/15 09:05 Dose: 5 mg Phenytoin (Dilantin) 100 mg PEG TID [facility] Last Admin: 10/27/15 17:10 Dose: 100 mg Polyethylene Glycol (Miralax) 17 gm PEG BID [facility] Last Admin: 08/21/15 11:26 Dose: Not Given - Constitutional Appears: No Acute Distress - Head Exam Head Exam: ATRAUMATIC, NORMAL INSPECTION - Eye Exam Eye Exam: EOMI, Normal appearance - ENT Exam ENT Exam: Mucous Membranes Moist - Neck Exam Neck exam: Normal Inspection. absent: Full Rom Additional comments: +trach collar - Respiratory Exam Respiratory Exam: Clear to PA & Lateral. absent: Rales, Rhonchi, Wheezes Additional comments: + - Cardiovascular Exam Cardiovascular Exam: REGULAR RHYTHM, +S1, +S2 - GI/Abdominal Exam GI & Abdominal Exam: Normal Bowel Sounds, Soft. absent: Distended - Extremities Exam Extremities exam: pedal pulses present. absent: pedal edema - Back Exam Back exam: absent: FULL ROM Additional comments: +sacral decub Stage II - Neurological Exam Neurological exam: Altered - Skin Skin Exam: Dry, Normal Color, Warm Assessment/Plan (1) Anoxic encephalopathy Current Visit: Yes Status: Acute Comment: Satting well on trach collar with FiO2 40% on PS/CPAP 10/17: Weaned off vent, now satting well on trach collar (2) Respiratory failure Current Visit: Yes Status: Acute Comment: Satting well on trach collar with FiO2 40% on PS/CPAP CXR (10/20) - enlarged cardiomediastinum silhouette with tortuous aorta. Underlying adenopathy or alternative pathologies cannot be excluded. Tracheostomy tube. Mild bibasilar atelectasis. 10/20: Patient satting at 100% on trach collar 40% FiO2 Patient coughing with thick secretions Rhonchi on exam Mucomyst and Duonebs started on 10/19 10/17:Weaned off vent, now satting well on trach collar 10/16: patient on trach collar, tolerating well. 10/12--> cont vent mx as per Pulm, unable to wean 10/06: no rhonchi or rales auscultated. lasix 40mg IVP once given yesterday. CXR - patchy right basilar airspace opacity with granulomatous changes in the left upper lobe and pleural thickening Dr. Salgado (pulm) on case - help very much appreciated (3) STEMI (ST elevation myocardial infarction) Current Visit: Yes Status: Acute Comment: cardiac stents on 06/13/15. Continue Lisinopril 5mg PO daily Continue Plavix 75mg PO daily Continue ASA 325mg PO daily (4) Seizures Current Visit: Yes Status: Acute Comment: 10/28: no new seizures noted 09/01: dilantin level 5.7, continue current management. 08/30--> repeat Dilantin level in am, cont meds, SZ precaution Continue dilantin 100mg via PEG TID Continue to monitor for seizure activity (5) Deep tissue injury Current Visit: Yes Status: Acute Comment: Sacral Decub ulcer Stage II. Continue wound care Qshift As per wound care, apply protective ointment daily as a protective measure. Desitin TOP BID Nystatin Powder BID Continue body checks. (6) Prophylactic measure Current Visit: Yes Status: Acute Comment: Lovenox 40 mg SQ daily SCDs <Rashel Rodrigues - Last Filed: 10/28/15 13:12> Objective - Vital Signs/Intake and Output Vital Signs (last 24 hours): Vital Signs - 24 hr 10/27/15 10/27/15 10/28/15 14:46 21:48 05:57 Temperature 98.9 F 97.9 F 98 F Pulse Rate 108 H 109 H 90 Respiratory 20 18 20 Rate Blood Pressure 115/77 133/81 115/71 O2 Sat by Pulse 100 99 99 Oximetry 10/28/15 10:12 Temperature Pulse Rate 90 Respiratory Rate Blood Pressure O2 Sat by Pulse Oximetry Intake and Output (last 12 hours): Intake & Output 10/27/15 10/28/15 10/28/15 18:59 06:59 18:59 Intake Total 850 850 Output Total 850 2000 Balance 0 -2000 850 Intake: Tube Feeding 700 700 Other 150 150 Output: Urine 850 2000 Urethral (Yoo) 850 2000 Other: # Bowel Movements 1 2 - Medications Medications: Current Medications Acetylcysteine (Acetylcysteine 20%) 3 ml INH RQ6 [facility] Last Admin: 10/28/15 09:11 Dose: Not Given Albuterol/Ipratropium (Duoneb 3 Mg/0.5 Mg (3 Ml) Ud) 3 ml INH RQ6 [facility] Last Admin: 10/28/15 09:10 Dose: 3 ml Aspirin (Aspirin) 325 mg PEG DAILY [facility] Last Admin: 10/28/15 09:41 Dose: 325 mg Clopidogrel Bisulfate (Plavix) 75 mg PEG DAILY [facility] Last Admin: 10/28/15 09:42 Dose: 75 mg Lisinopril (Zestril) 5 mg PO DAILY [facility] Last Admin: 10/28/15 09:42 Dose: 5 mg Phenytoin (Dilantin) 100 mg PEG TID [facility] Last Admin: 10/28/15 09:41 Dose: 100 mg Polyethylene Glycol (Miralax) 17 gm PEG BID [facility] Last Admin: 08/21/15 11:26 Dose: Not Given Assessment/Plan (1) Anoxic encephalopathy Current Visit: Yes Status: Acute Comment: Satting well on trach collar with FiO2 40% on PS/CPAP 10/17: Weaned off vent, now satting well on trach collar (2) STEMI (ST elevation myocardial infarction) Current Visit: Yes Status: Acute Comment: cardiac stents on 06/13/15. Continue Lisinopril 5mg PO daily Continue Plavix 75mg PO daily Continue ASA 325mg PO daily (3) Respiratory failure Current Visit: Yes Status: Acute Comment: Satting well on trach collar with FiO2 40% on PS/CPAP CXR (10/20) - enlarged cardiomediastinum silhouette with tortuous aorta. Underlying adenopathy or alternative pathologies cannot be excluded. Tracheostomy tube. Mild bibasilar atelectasis. 10/20: Patient satting at 100% on trach collar 40% FiO2 Patient coughing with thick secretions Rhonchi on exam Mucomyst and Duonebs started on 10/19 10/17:Weaned off vent, now satting well on trach collar 10/16: patient on trach collar, tolerating well. 10/12--> cont vent mx as per Pulm, unable to wean 10/06: no rhonchi or rales auscultated. lasix 40mg IVP once given yesterday. CXR - patchy right basilar airspace opacity with granulomatous changes in the left upper lobe and pleural thickening Dr. Salgado (pul) on case - help very much appreciated (4) Seizures Current Visit: Yes Status: Acute Comment: 10/28: no new seizures noted 09/01: dilantin level 5.7, continue current management. 08/30--> repeat Dilantin level in am, cont meds, SZ precaution Continue dilantin 100mg via PEG TID Continue to monitor for seizure activity (5) Prophylactic measure Current Visit: Yes Status: Acute Comment: Lovenox 40 mg SQ daily SCDs (6) Bed sore Current Visit: Yes Status: Acute Comment: 10/23: Improving, continue wound care. 10/22: -wound care following patient 10/19: -examined today -continue treatment with [facility] and [facility] as per Wound Care 10/12--> cont LWC as per Plastic and Wound care team 10/10: Wound care recommendations: [facility] to buttocks around ulcer, MediHoney to necrotic tissue, Position Q2 hours, Recall when necrotic tissue is soft/loose for debridement 10/09: sacral ulcer, stage [address] Panchal consulted, f/u recommendations 08/09- stage one ulcer, healed, per nursing. continue repositioning of patient q2H delores sibley Attending/Attestation - Attestation I have personally seen and examined this patient.: Yes I have fully participated in the care of the patient.: Yes I have reviewed all pertinent clinical information: Yes Notes (Text): 10/28/15 13:10 Patient was seen and examined during round with residents. pt has been stable on TC 40 %, No acute resp distress, no fever, pt is awake, non verbal Family not in the room. AM labs
[2015-10-28] MEDS: Phenytoin 100 mg/4 ml Oral Susp UD PEG SCH ×3 (09:41→17:03)
[2015-10-29] MEDS: Albuterol-Ipratrop 3 mg / 0.5 (3 ml) UD INH SCH ×4 (01:39→19:09)
[2015-10-29] MEDS: Acetylcysteine 20% Inhal Soln (4ml) INH SCH ×4 (01:40→19:09)
[2015-10-29 07:36] LABS: BASO % 0.3 % (0.0-2.0); EOS # 1.9 K/uL (0.0-0.7); EOS % 12.5 % (0.0-4.0); HEMOGLOBIN 12.5 g/dL (12.0-18.0); LYMPH # 1.5 K/uL (1.0-4.3); LYMPH % 10.1 % (20.0-40.0); MEAN CELL VOLUME 91.6 fL (80.0-94.0); MEAN CORPUSCULAR HEMOGLOBIN 30.4 pg (27.0-31.0); MEAN CORPUSCULAR HGB CONC 33.2 g/dL (33.0-37.0); MEAN PLATELET VOLUME 8.2 fL (7.2-11.7); MONO # 1.2 K/uL (0.0-0.8); MONO % 7.6 % (0.0-10.0); NEUT # 10.5 K/uL (1.8-7.0); NEUT % 69.5 % (50.0-75.0); RBC 4.12 Mil/uL (4.40-5.90); RED CELL DISTRIBUTION WIDTH 14.3 % (11.5-14.5); WHITE BLOOD COUNT 15.1 K/uL (4.8-10.8)
[2015-10-29 07:56] LABS: ALB/GLOB RATIO 0.9 (1.0-2.1); ALBUMIN 3.4 g/dL (3.5-5.0); ALT/SGPT 72 U/L (21-72); AST/SGOT 35 U/L (17-59); BLOOD UREA NITROGEN 16 mg/dL (9-20); CALCIUM 9.2 mg/dL (8.4-10.2); GFR NON-AFRICAN AMERICAN > 60
[2015-10-29] MEDS: Phenytoin 100 mg/4 ml Oral Susp UD PEG SCH ×3 (09:31→18:00)
--- NOTE | 2015-10-29 14:46 | CP.PCM.PN ---
<Scout Marinelli - Last Filed: 10/29/15 14:55> Subjective - Subjective Subjective: Pt seen and examined at bedside this morning. Pt status unchanged, currently off vent support and awake. Not responding to command. Review of Systems - Review of Systems Systems not reviewed;Unavailable: Intubated Objective - Vital Signs/Intake and Output Vital Signs (last 24 hours): Vital Signs - 24 hr 10/28/15 10/29/15 10/29/15 22:00 06:34 08:55 Temperature 99.5 F 98.9 F Pulse Rate 110 H 94 H 94 H Respiratory 19 20 Rate Blood Pressure 119/77 119/77 O2 Sat by Pulse 99 100 Oximetry Intake and Output (last 12 hours): Intake & Output 10/28/15 10/29/15 10/29/15 18:59 06:59 18:59 Intake Total 2050 850 Output Total 600 1700 Balance 1450 -850 Intake: Tube Feeding 1500 700 Other 550 150 Output: Urine 600 1700 Urethral (Baker) 600 1700 Other: # Bowel Movements 2 2 - Medications Medications: Current Medications Acetylcysteine (Acetylcysteine 20%) 3 ml INH RQ6 [facility] Last Admin: 10/29/15 13:09 Dose: 3 ml Albuterol/Ipratropium (Duoneb 3 Mg/0.5 Mg (3 Ml) Ud) 3 ml INH RQ6 [facility] Last Admin: 10/29/15 13:09 Dose: 3 ml Aspirin (Aspirin) 325 mg PEG DAILY [facility] Last Admin: 10/29/15 09:31 Dose: 325 mg Clopidogrel Bisulfate (Plavix) 75 mg PEG DAILY [facility] Last Admin: 10/29/15 09:31 Dose: 75 mg Lisinopril (Zestril) 5 mg PO DAILY [facility] Last Admin: 10/29/15 09:31 Dose: 5 mg Phenytoin (Dilantin) 100 mg PEG TID [facility] Last Admin: 10/29/15 13:46 Dose: 100 mg Polyethylene Glycol (Miralax) 17 gm PEG BID [facility] Last Admin: 08/21/15 11:26 Dose: Not Given - Labs Labs (last 24 hours): Laboratory Results - last 24 hr 10/29/15 07:18 WBC 15.1 H RBC 4.12 L Hgb 12.5 Hct 37.8 MCV 91.6 MCH 30.4 MCHC 33.2 RDW 14.3 Plt Count 335 MPV 8.2 Neut % (Auto) 69.5 Lymph % (Auto) 10.1 L [place] % (Auto) 7.6 Eos % (Auto) 12.5 H Baso % (Auto) 0.3 Neut # 10.5 H Lymph # 1.5 [place]y # 1.2 H Eos # 1.9 H Baso # 0.0 Sodium 138 Potassium 4.4 Chloride 100 Carbon Dioxide 30 Anion Gap 12 BUN 16 Creatinine 0.4 L Est GFR ( Amer) > 60 Est GFR (Non-Af Amer) > 60 Random Glucose 113 H Calcium 9.2 Phosphorus 4.1 Magnesium 2.2 Total Bilirubin 0.4 AST 35 ALT 72 Alkaline Phosphatase 103 Total Protein 7.3 Albumin 3.4 L Globulin 3.9 Albumin/Globulin Ratio 0.9 L - Constitutional Appears: Non-toxic, No Acute Distress - Head Exam Head Exam: NORMAL INSPECTION, NORMOCEPHALIC - Eye Exam Eye Exam: Normal appearance, PERRL - Respiratory Exam Respiratory Exam: Rales, NORMAL BREATHING PATTERN - Cardiovascular Exam Cardiovascular Exam: REGULAR RHYTHM, +S1, +S2. absent: Gallop, Rubs - GI/Abdominal Exam GI & Abdominal Exam: Normal Bowel Sounds, Soft - Neurological Exam Neurological exam: Alert, Altered - Skin Skin Exam: Normal Color Assessment/Plan (1) Leukocytosis Current Visit: Yes Status: Acute Comment: 10/26: Continue monitoring. F/U Thursday labs. 10/22: -WBC 10.6 WNL 10/18: -f/u blood work on 10/22 10/14: -Resolved, WBC=10.5 today 10/13: -last WBC on 10/11 was 13.1 -patient afebrile but does have sacral bed sore -consider CXR if pt becomes febrile -f/u WBC today 09/20: WBC 10.7; will f/u CBC on 09/25: WBC increased from to 17.2. replace baker catheter and f/u urine culture , urinalysis. f/u CXR in AM CXR - no active disease Monitor temperature Afebrile IV Cefepime 1gm q12h started 07/21 Monitor (2) Seizures Current Visit: Yes Status: Acute Comment: 10/29: Continue monitoring for seizure. 09/01: dilantin level 5.7, continue current management. 08/30--> repeat Dilantin level in am, cont meds, SZ precaution Continue dilantin 100mg via PEG TID Continue to monitor for seizure activity (3) Anoxic encephalopathy Current Visit: Yes Status: Acute Comment: Satting well on trach collar with FiO2 40% on PS/CPAP 10/17: Weaned off vent, now satting well on trach collar (4) Respiratory failure Current Visit: Yes Status: Acute Comment: Satting well on trach collar with FiO2 40% on PS/CPAP CXR (10/20) - enlarged cardiomediastinum silhouette with tortuous aorta. Underlying adenopathy or alternative pathologies cannot be excluded. Tracheostomy tube. Mild bibasilar atelectasis. 10/20: Patient satting at 100% on trach collar 40% FiO2 Patient coughing with thick secretions Rhonchi on exam Mucomyst and Duonebs started on 10/19 10/17:Weaned off vent, now satting well on trach collar 10/16: patient on trach collar, tolerating well. 10/12--> cont vent mx as per Pulm, unable to wean 10/06: no rhonchi or rales auscultated. lasix 40mg IVP once given yesterday. CXR - patchy right basilar airspace opacity with granulomatous changes in the left upper lobe and pleural thickening Dr. Salgado (pul) on case - help very much appreciated (5) Bed sore Current Visit: Yes Status: Acute Comment: 10/23: Improving, continue wound care. 10/22: -wound care following patient 10/19: -examined today -continue treatment with [facility] and [facility] as per Wound Care 10/12--> cont LWC as per Plastic and Wound care team 10/10: Wound care recommendations: [facility] to buttocks around ulcer, MediHoney to necrotic tissue, Position Q2 hours, Recall when necrotic tissue is soft/loose for debridement 10/09: sacral ulcer, stage [address] Panchal consulted, f/u recommendations 08/09- stage one ulcer, healed, per nursing. continue repositioning of patient q2H dolphin mattress (6) Prophylactic measure Current Visit: Yes Status: Acute Comment: Lovenox 40 mg SQ daily SCDs <Donnell Ying M - Last Filed: 10/29/15 16:37> Objective - Vital Signs/Intake and Output Vital Signs (last 24 hours): Vital Signs - 24 hr 10/28/15 10/29/15 10/29/15 22:00 06:34 08:55 Temperature 99.5 F 98.9 F Pulse Rate 110 H 94 H 94 H Respiratory 19 20 Rate Blood Pressure 119/77 119/77 O2 Sat by Pulse 99 100 Oximetry Intake and Output (last 12 hours): Intake & Output 10/28/15 10/29/15 10/29/15 18:59 06:59 18:59 Intake Total 2050 850 Output Total 600 1700 Balance 1450 -850 Intake: Tube Feeding 1500 700 Other 550 150 Output: Urine 600 1700 Urethral (Baker) 600 1700 Other: # Bowel Movements 2 2 - Medications Medications: Current Medications Acetylcysteine (Acetylcysteine 20%) 3 ml INH RQ6 [facility] Last Admin: 10/29/15 13:09 Dose: 3 ml Albuterol/Ipratropium (Duoneb 3 Mg/0.5 Mg (3 Ml) Ud) 3 ml INH RQ6 [facility] Last Admin: 10/29/15 13:09 Dose: 3 ml Aspirin (Aspirin) 325 mg PEG DAILY [facility] Last Admin: 10/29/15 09:31 Dose: 325 mg Clopidogrel Bisulfate (Plavix) 75 mg PEG DAILY [facility] Last Admin: 10/29/15 09:31 Dose: 75 mg Lisinopril (Zestril) 5 mg PO DAILY [facility] Last Admin: 10/29/15 09:31 Dose: 5 mg Phenytoin (Dilantin) 100 mg PEG TID [facility] Last Admin: 10/29/15 13:46 Dose: 100 mg Polyethylene Glycol (Miralax) 17 gm PEG BID [facility] Last Admin: 08/21/15 11:26 Dose: Not Given - Labs Labs (last 24 hours): Laboratory Results - last 24 hr 10/29/15 07:18 WBC 15.1 H RBC 4.12 L Hgb 12.5 Hct 37.8 MCV 91.6 MCH 30.4 MCHC 33.2 RDW 14.3 Plt Count 335 MPV 8.2 Neut % (Auto) 69.5 Lymph % (Auto) 10.1 L D[place] % (Auto) 7.6 Eos % (Auto) 12.5 H Baso % (Auto) 0.3 Neut # 10.5 H Lymph # 1.5 [place] # 1.2 H Eos # 1.9 H Baso # 0.0 Sodium 138 Potassium 4.4 Chloride 100 Carbon Dioxide 30 Anion Gap 12 BUN 16 Creatinine 0.4 L Est GFR ( Amer) > 60 Est GFR (Non-Af Amer) > 60 Random Glucose 113 H Calcium 9.2 Phosphorus 4.1 Magnesium 2.2 Total Bilirubin 0.4 AST 35 ALT 72 Alkaline Phosphatase 103 Total Protein 7.3 Albumin 3.4 L Globulin 3.9 Albumin/Globulin Ratio 0.9 L Attending/Attestation - Attestation I have personally seen and examined this patient.: Yes I have fully participated in the care of the patient.: Yes I have reviewed all pertinent clinical information: Yes Notes (Text): 10/29/15 16:37 Patient seen and examined at bedside with the resident. Patient is clinically stable. Continue current management. Discharge planning.
[2015-10-30] MEDS: Acetylcysteine 20% Inhal Soln (4ml) INH SCH ×4 (01:03→19:37)
[2015-10-30] MEDS: Albuterol-Ipratrop 3 mg / 0.5 (3 ml) UD INH SCH ×2 (01:04→08:29)
[2015-10-30] MEDS: Phenytoin 100 mg/4 ml Oral Susp UD PEG SCH ×3 (09:44→17:17)
--- NOTE | 2015-10-30 14:21 | CP.PCM.PN ---
<Scout Marinelli - Last Filed: 10/30/15 14:19> Subjective - Subjective Subjective: Pt seen and examined at bedside this morning. Pt status unchanged, currently off vent support and awake. Not responding to command. Review of Systems - Review of Systems Systems not reviewed;Unavailable: Altered Mental Status Objective - Vital Signs/Intake and Output Vital Signs (last 24 hours): Vital Signs - 24 hr 10/29/15 10/30/15 10/30/15 22:00 05:00 10:13 Temperature 98.2 F 98.2 F Pulse Rate 86 93 H 93 H Respiratory 20 18 Rate Blood Pressure 128/86 126/75 O2 Sat by Pulse 99 100 Oximetry 10/30/15 14:01 Temperature 99.1 F Pulse Rate 95 H Respiratory 20 Rate Blood Pressure 108/73 O2 Sat by Pulse 99 Oximetry Intake and Output (last 12 hours): Intake & Output 10/29/15 10/30/15 10/30/15 18:59 06:59 18:59 Intake Total 850 Output Total 2250 1000 Balance -1400 -1000 Intake: Tube Feeding 700 Other 150 Output: Urine 2250 1000 Urethral (Baker) 2250 1000 Other: # Bowel Movements 1 - Medications Medications: Current Medications Acetylcysteine (Acetylcysteine 20%) 3 ml INH RQ6 [facility] Last Admin: 10/30/15 13:35 Dose: Not Given Aspirin (Aspirin) 325 mg PEG DAILY [facility] Last Admin: 10/30/15 09:44 Dose: 325 mg Clopidogrel Bisulfate (Plavix) 75 mg PEG DAILY [facility] Last Admin: 10/30/15 09:44 Dose: 75 mg Lisinopril (Zestril) 5 mg PO DAILY [facility] Last Admin: 10/30/15 09:44 Dose: 5 mg Phenytoin (Dilantin) 100 mg PEG TID [facility] Last Admin: 10/30/15 13:36 Dose: 100 mg Polyethylene Glycol (Miralax) 17 gm PEG BID [facility] Last Admin: 08/21/15 11:26 Dose: Not Given - Constitutional Appears: Non-toxic, No Acute Distress - Head Exam Head Exam: NORMAL INSPECTION, NORMOCEPHALIC - Eye Exam Eye Exam: Normal appearance Pupil Exam: NORMAL ACCOMODATION - Respiratory Exam Respiratory Exam: Rales, NORMAL BREATHING PATTERN - Cardiovascular Exam Cardiovascular Exam: REGULAR RHYTHM, +S1, +S2 - GI/Abdominal Exam GI & Abdominal Exam: Normal Bowel Sounds, Soft - Neurological Exam Neurological exam: Alert, Altered - Skin Skin Exam: Normal Color Assessment/Plan (1) Leukocytosis Current Visit: Yes Status: Acute Comment: 10/26: Continue monitoring. F/U Thursday labs. 10/22: -WBC 10.6 WNL 10/18: -f/u blood work on 10/22 10/14: -Resolved, WBC=10.5 today 10/13: -last WBC on 10/11 was 13.1 -patient afebrile but does have sacral bed sore -consider CXR if pt becomes febrile -f/u WBC today 09/20: WBC 10.7; will f/u CBC on 09/25: WBC increased from to 17.2. replace baker catheter and f/u urine culture , urinalysis. f/u CXR in AM CXR - no active disease Monitor temperature Afebrile IV Cefepime 1gm q12h started 07/21 Monitor (2) Seizures Current Visit: Yes Status: Acute Comment: 10/29: Continue monitoring for seizure. 09/01: dilantin level 5.7, continue current management. 08/30--> repeat Dilantin level in am, cont meds, SZ precaution Continue dilantin 100mg via PEG TID Continue to monitor for seizure activity (3) Anoxic encephalopathy Current Visit: Yes Status: Acute Comment: Satting well on trach collar with FiO2 40% on PS/CPAP 10/17: Weaned off vent, now satting well on trach collar (4) Respiratory failure Current Visit: Yes Status: Acute Comment: Satting well on trach collar with FiO2 40% on PS/CPAP CXR (10/20) - enlarged cardiomediastinum silhouette with tortuous aorta. Underlying adenopathy or alternative pathologies cannot be excluded. Tracheostomy tube. Mild bibasilar atelectasis. 10/20: Patient satting at 100% on trach collar 40% FiO2 Patient coughing with thick secretions Rhonchi on exam Mucomyst and Duonebs started on 10/19 10/17:Weaned off vent, now satting well on trach collar 10/16: patient on trach collar, tolerating well. 10/12--> cont vent mx as per Pulm, unable to wean 10/06: no rhonchi or rales auscultated. lasix 40mg IVP once given yesterday. CXR - patchy right basilar airspace opacity with granulomatous changes in the left upper lobe and pleural thickening Dr. Salgado (pul) on case - help very much appreciated (5) Bed sore Current Visit: Yes Status: Acute Comment: 10/23: Improving, continue wound care. 10/22: -wound care following patient 10/19: -examined today -continue treatment with [facility] and [facility] as per Wound Care 10/12--> cont LWC as per Plastic and Wound care team 10/10: Wound care recommendations: [facility] to buttocks around ulcer, MediHoney to necrotic tissue, Position Q2 hours, Recall when necrotic tissue is soft/loose for debridement 10/09: sacral ulcer, stage [address] Panchal consulted, f/u recommendations 08/09- stage one ulcer, healed, per nursing. continue repositioning of patient q2H dolphin mattress (6) Prophylactic measure Current Visit: Yes Status: Acute Comment: Plavix 75mg through PEG. SCDs <Donnell Ying M - Last Filed: 10/30/15 15:20> Objective - Vital Signs/Intake and Output Vital Signs (last 24 hours): Vital Signs - 24 hr 10/29/15 10/30/15 10/30/15 22:00 05:00 10:13 Temperature 98.2 F 98.2 F Pulse Rate 86 93 H 93 H Respiratory 20 18 Rate Blood Pressure 128/86 126/75 O2 Sat by Pulse 99 100 Oximetry 10/30/15 14:01 Temperature 99.1 F Pulse Rate 95 H Respiratory 20 Rate Blood Pressure 108/73 O2 Sat by Pulse 99 Oximetry Intake and Output (last 12 hours): Intake & Output 10/29/15 10/30/15 10/30/15 18:59 06:59 18:59 Intake Total 850 Output Total 2250 1000 Balance -1400 -1000 Intake: Tube Feeding 700 Other 150 Output: Urine 2250 1000 Urethral (Baker) 2250 1000 Other: # Bowel Movements 1 - Medications Medications: Current Medications Acetylcysteine (Acetylcysteine 20%) 3 ml INH RQ6 [facility] Last Admin: 10/30/15 13:35 Dose: Not Given Aspirin (Aspirin) 325 mg PEG DAILY [facility] Last Admin: 10/30/15 09:44 Dose: 325 mg Clopidogrel Bisulfate (Plavix) 75 mg PEG DAILY [facility] Last Admin: 10/30/15 09:44 Dose: 75 mg Lisinopril (Zestril) 5 mg PO DAILY [facility] Last Admin: 10/30/15 09:44 Dose: 5 mg Phenytoin (Dilantin) 100 mg PEG TID [facility] Last Admin: 10/30/15 13:36 Dose: 100 mg Polyethylene Glycol (Miralax) 17 gm PEG BID [facility] Last Admin: 08/21/15 11:26 Dose: Not Given Attending/Attestation - Attestation I have personally seen and examined this patient.: Yes I have fully participated in the care of the patient.: Yes I have reviewed all pertinent clinical information: Yes Notes (Text): 10/30/15 15:20 Patient seen and examined with the resident. No change in clinical condition. Patient on trach collar. Discharge planning.
[2015-10-31] MEDS: Acetylcysteine 20% Inhal Soln (4ml) INH SCH ×2 (07:35→13:58)
--- NOTE | 2015-10-31 07:44 | CP.PCM.PN ---
<Scout Marinelli - Last Filed: 10/31/15 18:42> Subjective - Subjective Subjective: Pt seen and examined at bedside this morning. Pt status unchanged, currently off vent support and awake. Not responding to command. Review of Systems - Review of Systems Systems not reviewed;Unavailable: Altered Mental Status Objective - Vital Signs/Intake and Output Vital Signs (last 24 hours): Vital Signs - 24 hr 10/30/15 10/30/15 10/30/15 10:13 14:01 22:00 Temperature 99.1 F 97.5 F L Pulse Rate 93 H 95 H 79 Respiratory 20 19 Rate Blood Pressure 108/73 124/82 O2 Sat by Pulse 99 99 Oximetry 10/31/15 06:11 Temperature 97 F L Pulse Rate 95 H Respiratory 19 Rate Blood Pressure 136/71 O2 Sat by Pulse 100 Oximetry Intake and Output (last 12 hours): Intake & Output 10/30/15 10/31/15 10/31/15 18:59 06:59 18:59 Intake Total 800 Output Total 1000 1300 Balance -1000 -500 Intake: Tube Feeding 700 Other 100 Output: Urine 1000 1300 Urethral (Baker) 1000 1300 Other: # Bowel Movements 1 - Medications Medications: Current Medications Acetylcysteine (Acetylcysteine 20%) 3 ml INH RQ6 [facility] Last Admin: 10/31/15 07:35 Dose: Not Given Aspirin (Aspirin) 325 mg PEG DAILY [facility] Last Admin: 10/30/15 09:44 Dose: 325 mg Clopidogrel Bisulfate (Plavix) 75 mg PEG DAILY [facility] Last Admin: 10/30/15 09:44 Dose: 75 mg Lisinopril (Zestril) 5 mg PO DAILY [facility] Last Admin: 10/30/15 09:44 Dose: 5 mg Phenytoin (Dilantin) 100 mg PEG TID [facility] Last Admin: 10/30/15 17:17 Dose: 100 mg Polyethylene Glycol (Miralax) 17 gm PEG BID [facility] Last Admin: 08/21/15 11:26 Dose: Not Given - Constitutional Appears: Non-toxic, No Acute Distress - Head Exam Head Exam: ATRAUMATIC, NORMOCEPHALIC - Eye Exam Eye Exam: Normal appearance Pupil Exam: NORMAL ACCOMODATION - Respiratory Exam Respiratory Exam: Rales, Rhonchi, NORMAL BREATHING PATTERN - Cardiovascular Exam Cardiovascular Exam: REGULAR RHYTHM, +S1, +S2 - GI/Abdominal Exam GI & Abdominal Exam: Normal Bowel Sounds, Soft - Neurological Exam Neurological exam: Alert, Altered - Skin Skin Exam: Normal Color Assessment/Plan (1) Leukocytosis Current Visit: Yes Status: Acute Comment: 10/26: Continue monitoring. F/U Thursday labs. 10/22: -WBC 10.6 WNL 10/18: -f/u blood work on 10/22 10/14: -Resolved, WBC=10.5 today 10/13: -last WBC on 10/11 was 13.1 -patient afebrile but does have sacral bed sore -consider CXR if pt becomes febrile -f/u WBC today 09/20: WBC 10.7; will f/u CBC on 09/25: WBC increased from to 17.2. replace baker catheter and f/u urine culture , urinalysis. f/u CXR in AM CXR - no active disease Monitor temperature Afebrile IV Cefepime 1gm q12h started 07/21 Monitor (2) Seizures Current Visit: Yes Status: Acute Comment: 10/29: Continue monitoring for seizure. 09/01: dilantin level 5.7, continue current management. 08/30--> repeat Dilantin level in am, cont meds, SZ precaution Continue dilantin 100mg via PEG TID Continue to monitor for seizure activity (3) Anoxic encephalopathy Current Visit: Yes Status: Acute Comment: Satting well on trach collar with FiO2 40% on PS/CPAP 10/17: Weaned off vent, now satting well on trach collar (4) Respiratory failure Current Visit: Yes Status: Acute Comment: Satting well on trach collar with FiO2 40% on PS/CPAP CXR (10/20) - enlarged cardiomediastinum silhouette with tortuous aorta. Underlying adenopathy or alternative pathologies cannot be excluded. Tracheostomy tube. Mild bibasilar atelectasis. 10/20: Patient satting at 100% on trach collar 40% FiO2 Patient coughing with thick secretions Rhonchi on exam Mucomyst and Duonebs started on 10/19 10/17:Weaned off vent, now satting well on trach collar 10/16: patient on trach collar, tolerating well. 10/12--> cont vent mx as per Pulm, unable to wean 10/06: no rhonchi or rales auscultated. lasix 40mg IVP once given yesterday. CXR - patchy right basilar airspace opacity with granulomatous changes in the left upper lobe and pleural thickening Dr. Salgado (pul) on case - help very much appreciated (5) Bed sore Current Visit: Yes Status: Acute Comment: 10/23: Improving, continue wound care. 10/22: -wound care following patient 10/19: -examined today -continue treatment with [facility] and [facility] as per Wound Care 10/12--> cont LWC as per Plastic and Wound care team 10/10: Wound care recommendations: [facility] to buttocks around ulcer, Medi[facility] to necrotic tissue, Position Q2 hours, Recall when necrotic tissue is soft/loose for debridement 10/09: sacral ulcer, stage [address] Panchal consulted, f/u recommendations 08/09- stage one ulcer, healed, per nursing. continue repositioning of patient q2H dolphin mattress (6) Prophylactic measure Current Visit: Yes Status: Acute Comment: Plavix 75mg through PEG. SCDs <Donnell Ying M - Last Filed: 11/01/15 09:25> Objective - Vital Signs/Intake and Output Vital Signs (last 24 hours): Vital Signs - 24 hr 10/31/15 10/31/15 10/31/15 10:20 14:16 21:23 Temperature 98.7 F 99.8 F H Pulse Rate 95 H 95 H 98 H Respiratory 18 18 Rate Blood Pressure 124/76 110/77 O2 Sat by Pulse 100 99 Oximetry 11/01/15 06:06 Temperature 98.8 F Pulse Rate 99 H Respiratory 20 Rate Blood Pressure 128/79 O2 Sat by Pulse 99 Oximetry Intake and Output (last 12 hours): Intake & Output 10/31/15 11/01/15 11/01/15 18:59 06:59 18:59 Intake Total 850 Output Total 500 710 Balance -500 140 Intake: Tube Feeding 850 Output: Gastric Amount 10 Stomach 10 Urine 500 700 Urethral (Baker) 500 700 Other: # Bowel Movements 1 - Medications Medications: Current Medications Acetylcysteine (Acetylcysteine 20%) 3 ml INH RQ6 [facility] Last Admin: 11/01/15 09:05 Dose: Not Given Aspirin (Aspirin) 325 mg PEG DAILY [facility] Last Admin: 12/09/15 09:51 Dose: 325 mg Clopidogrel Bisulfate (Plavix) 75 mg PEG DAILY [facility] Last Admin: 10/31/15 09:51 Dose: 75 mg Lisinopril (Zestril) 5 mg PO DAILY [facility] Last Admin: 10/31/15 09:51 Dose: 5 mg Phenytoin (Dilantin) 100 mg PEG TID [facility] Last Admin: 10/31/15 17:18 Dose: 100 mg Polyethylene Glycol (Miralax) 17 gm PEG BID [facility] Last Admin: 08/21/15 11:26 Dose: Not Given Attending/Attestation - Attestation I have personally seen and examined this patient.: Yes I have fully participated in the care of the patient.: Yes I have reviewed all pertinent clinical information: Yes Notes (Text): 11/01/15 09:25 Patient seen and examined with the residents earlier. No change in clinical condition. Continue current management. Awaiting placement.
[2015-10-31] MEDS: Phenytoin 100 mg/4 ml Oral Susp UD PEG SCH ×3 (09:52→17:18)
[2015-11-01] MEDS: Acetylcysteine 20% Inhal Soln (4ml) INH SCH ×3 (09:05→19:54)
[2015-11-01] MEDS: Phenytoin 100 mg/4 ml Oral Susp UD PEG SCH ×3 (09:28→18:24)
--- NOTE | 2015-11-01 14:25 | CP.PCM.PN ---
<Scout Marinelli - Last Filed: 11/01/15 14:21> Subjective - Subjective Subjective: Pt seen and examined at bedside this morning. Pt status unchanged, currently off vent support and awake. Not responding to command. Elevated temp 99.8 noted , will continue observation. Review of Systems - Review of Systems Systems not reviewed;Unavailable: Altered Mental Status Objective - Vital Signs/Intake and Output Vital Signs (last 24 hours): Vital Signs - 24 hr 10/31/15 11/01/15 11/01/15 21:23 06:06 08:00 Temperature 99.8 F H 98.8 F Pulse Rate 98 H 99 H 99 H Respiratory 18 20 Rate Blood Pressure 110/77 128/79 O2 Sat by Pulse 99 99 Oximetry Intake and Output (last 12 hours): Intake & Output 10/31/15 11/01/15 11/01/15 18:59 06:59 18:59 Intake Total 850 Output Total 500 710 Balance -500 140 Intake: Tube Feeding 850 Output: Gastric Amount 10 Stomach 10 Urine 500 700 Urethral (Baker) 500 700 Other: # Bowel Movements 1 - Medications Medications: Current Medications Acetylcysteine (Acetylcysteine 20%) 3 ml INH RQ6 [facility] Last Admin: 11/01/15 09:05 Dose: Not Given Aspirin (Aspirin) 325 mg PEG DAILY [facility] Last Admin: 11/01/15 09:27 Dose: 325 mg Clopidogrel Bisulfate (Plavix) 75 mg PEG DAILY [facility] Last Admin: 11/01/15 09:27 Dose: 75 mg Lisinopril (Zestril) 5 mg PO DAILY [facility] Last Admin: 11/01/15 09:27 Dose: 5 mg Phenytoin (Dilantin) 100 mg PEG TID [facility] Last Admin: 11/01/15 14:00 Dose: 100 mg Polyethylene Glycol (Miralax) 17 gm PEG BID [facility] Last Admin: 08/21/15 11:26 Dose: Not Given - Constitutional Appears: Non-toxic, No Acute Distress - Head Exam Head Exam: NORMAL INSPECTION, NORMOCEPHALIC - Eye Exam Eye Exam: Normal appearance Pupil Exam: NORMAL ACCOMODATION - Respiratory Exam Respiratory Exam: Rales, NORMAL BREATHING PATTERN - Cardiovascular Exam Cardiovascular Exam: REGULAR RHYTHM, +S1, +S2. absent: Gallop, Rubs - GI/Abdominal Exam GI & Abdominal Exam: Normal Bowel Sounds, Soft - Neurological Exam Neurological exam: Alert, Altered - Skin Skin Exam: Normal Color Assessment/Plan (1) Leukocytosis Current Visit: Yes Status: Acute Comment: 10/26: Continue monitoring. F/U Thursday labs. 10/22: -WBC 10.6 WNL 10/18: -f/u blood work on 10/22 10/14: -Resolved, WBC=10.5 today 10/13: -last WBC on 10/11 was 13.1 -patient afebrile but does have sacral bed sore -consider CXR if pt becomes febrile -f/u WBC today 09/20: WBC 10.7; will f/u CBC on 09/25: WBC increased from to 17.2. replace baker catheter and f/u urine culture , urinalysis. f/u CXR in AM CXR - no active disease Monitor temperature Afebrile IV Cefepime 1gm q12h started 07/21 Monitor (2) Seizures Current Visit: Yes Status: Acute Comment: 10/29: Continue monitoring for seizure. 09/01: dilantin level 5.7, continue current management. 08/30--> repeat Dilantin level in am, cont meds, SZ precaution Continue dilantin 100mg via PEG TID Continue to monitor for seizure activity (3) Anoxic encephalopathy Current Visit: Yes Status: Acute Comment: Satting well on trach collar with FiO2 40% on PS/CPAP 10/17: Weaned off vent, now satting well on trach collar (4) Respiratory failure Current Visit: Yes Status: Acute Comment: Satting well on trach collar with FiO2 40% on PS/CPAP CXR (10/20) - enlarged cardiomediastinum silhouette with tortuous aorta. Underlying adenopathy or alternative pathologies cannot be excluded. Tracheostomy tube. Mild bibasilar atelectasis. 10/20: Patient satting at 100% on trach collar 40% FiO2 Patient coughing with thick secretions Rhonchi on exam Mucomyst and Duonebs started on 10/19 10/17:Weaned off vent, now satting well on trach collar 10/16: patient on trach collar, tolerating well. 10/12--> cont vent mx as per Pulm, unable to wean 10/06: no rhonchi or rales auscultated. lasix 40mg IVP once given yesterday. CXR - patchy right basilar airspace opacity with granulomatous changes in the left upper lobe and pleural thickening Dr. Salgado (pulm) on case - help very much appreciated (5) Bed sore Current Visit: Yes Status: Acute Comment: 10/23: Improving, continue wound care. 10/22: -wound care following patient 10/19: -examined today -continue treatment with [facility] and [facility] as per Wound Care 10/12--> cont LWC as per Plastic and Wound care team 10/10: Wound care recommendations: [facility] to buttocks around ulcer, MediHoney to necrotic tissue, Position Q2 hours, Recall when necrotic tissue is soft/loose for debridement 10/09: sacral ulcer, stage [address] Panchal consulted, f/u recommendations 08/09- stage one ulcer, healed, per nursing. continue repositioning of patient q2H dolphin mattress (6) Prophylactic measure Current Visit: Yes Status: Acute Comment: Plavix 75mg through PEG. SCDs <Donnell Ying M - Last Filed: 11/01/15 15:01> Objective - Vital Signs/Intake and Output Vital Signs (last 24 hours): Vital Signs - 24 hr 10/31/15 11/01/15 11/01/15 21:23 06:06 08:00 Temperature 99.8 F H 98.8 F Pulse Rate 98 H 99 H 99 H Respiratory 18 20 Rate Blood Pressure 110/77 128/79 O2 Sat by Pulse 99 99 Oximetry 11/01/15 14:21 Temperature 97.9 F Pulse Rate 95 H Respiratory 20 Rate Blood Pressure 126/80 O2 Sat by Pulse 99 Oximetry Intake and Output (last 12 hours): Intake & Output 10/31/15 11/01/15 11/01/15 18:59 06:59 18:59 Intake Total 850 Output Total 500 710 500 Balance -500 140 -500 Intake: Tube Feeding 850 Output: Gastric Amount 10 Stomach 10 Urine 500 700 500 Urethral (Baker) 500 700 500 Other: # Bowel Movements 1 - Medications Medications: Current Medications Acetylcysteine (Acetylcysteine 20%) 3 ml INH RQ6 [facility] Last Admin: 11/01/15 09:05 Dose: Not Given Aspirin (Aspirin) 325 mg PEG DAILY [facility] Last Admin: 11/01/15 09:27 Dose: 325 mg Clopidogrel Bisulfate (Plavix) 75 mg PEG DAILY [facility] Last Admin: 11/01/15 09:27 Dose: 75 mg Lisinopril (Zestril) 5 mg PO DAILY [facility] Last Admin: 11/01/15 09:27 Dose: 5 mg Phenytoin (Dilantin) 100 mg PEG TID [facility] Last Admin: 11/01/15 14:00 Dose: 100 mg Polyethylene Glycol (Miralax) 17 gm PEG BID [facility] Last Admin: 08/21/15 11:26 Dose: Not Given Attending/Attestation - Attestation I have personally seen and examined this patient.: Yes I have fully participated in the care of the patient.: Yes I have reviewed all pertinent clinical information: Yes Notes (Text): 11/01/15 15:00 Patient seen and examined with the resident earlier. Patient is on trach collar. Low grade fever noted Will observe for now. Awaiting placement
[2015-11-02] MEDS: Acetylcysteine 20% Inhal Soln (4ml) INH SCH ×2 (08:09→19:17)
[2015-11-02] MEDS: Phenytoin 100 mg/4 ml Oral Susp UD PEG SCH ×3 (09:23→18:36)
--- NOTE | 2015-11-02 13:07 | CP.PCM.PN ---
<Scout Marinelli - Last Filed: 11/02/15 13:05> Subjective - Subjective Subjective: Pt seen and examined at bedside this morning. Pt status unchanged, currently off vent support and awake. Not responding to command. Afebrile and continue observation. Review of Systems - Review of Systems Systems not reviewed;Unavailable: Acuity of Condition Objective - Vital Signs/Intake and Output Vital Signs (last 24 hours): Vital Signs - 24 hr 11/01/15 11/01/15 11/02/15 14:21 22:21 05:56 Temperature 97.9 F 98.9 F 98.0 F Pulse Rate 95 H 92 H 91 H Respiratory 20 20 18 Rate Blood Pressure 126/80 124/84 121/80 O2 Sat by Pulse 99 99 99 Oximetry 11/02/15 08:00 Temperature Pulse Rate 91 H Respiratory Rate Blood Pressure O2 Sat by Pulse Oximetry Intake and Output (last 12 hours): Intake & Output 11/01/15 11/02/15 11/02/15 18:59 06:59 18:59 Intake Total 1850 Output Total 500 1300 Balance -500 550 Intake: Tube Feeding 1600 Albumin 250 Output: Urine 500 1300 Urethral (Baker) 500 1300 Other: # Bowel Movements 2 - Medications Medications: Current Medications Acetylcysteine (Acetylcysteine 20%) 3 ml INH RQ6 [facility] Last Admin: 11/02/15 08:09 Dose: Not Given Aspirin (Aspirin) 325 mg PEG DAILY [facility] Last Admin: 11/02/15 09:23 Dose: 325 mg Clopidogrel Bisulfate (Plavix) 75 mg PEG DAILY [facility] Last Admin: 11/02/15 09:23 Dose: 75 mg Lisinopril (Zestril) 5 mg PO DAILY [facility] Last Admin: 11/02/15 09:23 Dose: 5 mg Phenytoin (Dilantin) 100 mg PEG TID [facility] Last Admin: 11/02/15 09:23 Dose: 100 mg Polyethylene Glycol (Miralax) 17 gm PEG BID [facility] Last Admin: 08/21/15 11:26 Dose: Not Given - Constitutional Appears: Non-toxic, No Acute Distress - Head Exam Head Exam: ATRAUMATIC, NORMAL INSPECTION, NORMOCEPHALIC - Eye Exam Eye Exam: Normal appearance, PERRL - Respiratory Exam Respiratory Exam: Rales, Rhonchi, NORMAL BREATHING PATTERN - Cardiovascular Exam Cardiovascular Exam: REGULAR RHYTHM, +S1, +S2 - Neurological Exam Neurological exam: Altered - Skin Skin Exam: Normal Color Assessment/Plan (1) Leukocytosis Current Visit: Yes Status: Acute Comment: 10/26: Continue monitoring. F/U Thursday labs. 10/22: -WBC 10.6 WNL 10/18: -f/u blood work on 10/22 10/14: -Resolved, WBC=10.5 today 10/13: -last WBC on 10/11 was 13.1 -patient afebrile but does have sacral bed sore -consider CXR if pt becomes febrile -f/u WBC today 09/20: WBC 10.7; will f/u CBC on 09/25: WBC increased from to 17.2. replace baker catheter and f/u urine culture , urinalysis. f/u CXR in AM CXR - no active disease Monitor temperature Afebrile IV Cefepime 1gm q12h started 07/21 Monitor (2) Seizures Current Visit: Yes Status: Acute Comment: 10/29: Continue monitoring for seizure. 09/01: dilantin level 5.7, continue current management. 08/30--> repeat Dilantin level in am, cont meds, SZ precaution Continue dilantin 100mg via PEG TID Continue to monitor for seizure activity (3) Anoxic encephalopathy Current Visit: Yes Status: Acute Comment: Satting well on trach collar with FiO2 40% on PS/CPAP 10/17: Weaned off vent, now satting well on trach collar (4) Respiratory failure Current Visit: Yes Status: Acute Comment: Satting well on trach collar with FiO2 40% on PS/CPAP CXR (10/20) - enlarged cardiomediastinum silhouette with tortuous aorta. Underlying adenopathy or alternative pathologies cannot be excluded. Tracheostomy tube. Mild bibasilar atelectasis. 10/20: Patient satting at 100% on trach collar 40% FiO2 Patient coughing with thick secretions Rhonchi on exam Mucomyst and Duonebs started on 10/19 10/17:Weaned off vent, now satting well on trach collar 10/16: patient on trach collar, tolerating well. 10/12--> cont vent mx as per Pulm, unable to wean 10/06: no rhonchi or rales auscultated. lasix 40mg IVP once given yesterday. CXR - patchy right basilar airspace opacity with granulomatous changes in the left upper lobe and pleural thickening Dr. Salgado (pul) on case - help very much appreciated (5) Bed sore Current Visit: Yes Status: Acute Comment: 11/02: Continue wound care. Will check 1x a week. 10/23: Improving, continue wound care. 10/22: -wound care following patient 10/19: -examined today -continue treatment with [facility] and [facility] as per Wound Care 10/12--> cont LWC as per Plastic and Wound care team 10/10: Wound care recommendations: [facility] to buttocks around ulcer, MediHoney to necrotic tissue, Position Q2 hours, Recall when necrotic tissue is soft/loose for debridement 10/09: sacral ulcer, stage [address] Panchal consulted, f/u recommendations 08/09- stage one ulcer, healed, per nursing. continue repositioning of patient q2H dolphin mattress (6) Prophylactic measure Current Visit: Yes Status: Acute Comment: Plavix 75mg through PEG. SCDs <Donnell Ying M - Last Filed: 11/02/15 15:57> Objective - Vital Signs/Intake and Output Vital Signs (last 24 hours): Vital Signs - 24 hr 11/01/15 11/02/15 11/02/15 22:21 05:56 08:00 Temperature 98.9 F 98.0 F Pulse Rate 92 H 91 H 91 H Respiratory 20 18 Rate Blood Pressure 124/84 121/80 O2 Sat by Pulse 99 99 Oximetry 11/02/15 14:00 Temperature 97.9 F Pulse Rate 93 H Respiratory 18 Rate Blood Pressure 118/77 O2 Sat by Pulse 99 Oximetry Intake and Output (last 12 hours): Intake & Output 11/01/15 11/02/15 11/02/15 18:59 06:59 18:59 Intake Total 1850 Output Total 500 1300 500 Balance -500 550 -500 Intake: Tube Feeding 1600 Albumin 250 Output: Urine 500 1300 500 Urethral (Baker) 500 1300 500 Other: # Bowel Movements 2 1 - Medications Medications: Current Medications Acetylcysteine (Acetylcysteine 20%) 3 ml INH RQ6 [facility] Last Admin: 11/02/15 08:09 Dose: Not Given Aspirin (Aspirin) 325 mg PEG DAILY [facility] Last Admin: 11/02/15 09:23 Dose: 325 mg Clopidogrel Bisulfate (Plavix) 75 mg PEG DAILY [facility] Last Admin: 11/02/15 09:23 Dose: 75 mg Lisinopril (Zestril) 5 mg PO DAILY [facility] Last Admin: 11/02/15 09:23 Dose: 5 mg Phenytoin (Dilantin) 100 mg PEG TID [facility] Last Admin: 11/02/15 14:26 Dose: 100 mg Polyethylene Glycol (Miralax) 17 gm PEG BID [facility] Last Admin: 08/21/15 11:26 Dose: Not Given Attending/Attestation - Attestation I have personally seen and examined this patient.: Yes I have fully participated in the care of the patient.: Yes I have reviewed all pertinent clinical information: Yes Notes (Text): 11/02/15 15:56 Patient seen and examined at bedside with the resident Patient is hemodynamically stable No change in clinical condition Continue current management
[2015-11-02] MEDS: Albuterol-Ipratrop 3 mg / 0.5 (3 ml) UD INH SCH (19:44)
[2015-11-03] MEDS: Albuterol-Ipratrop 3 mg / 0.5 (3 ml) UD INH SCH ×4 (01:00→19:18)
--- NOTE | 2015-11-03 09:26 | CP.PCM.PN ---
<Scout Marinelli - Last Filed: 11/03/15 09:25> Subjective - Subjective Subjective: Pt seen and examined at bedside this morning. Pt status unchanged, currently off vent support and awake. Not responding to command. Afebrile and continue observation. Secretions noted, will continue suctioning per respiratory. Review of Systems - Review of Systems Systems not reviewed;Unavailable: Altered Mental Status Objective - Vital Signs/Intake and Output Vital Signs (last 24 hours): Vital Signs - 24 hr 11/02/15 11/02/15 11/03/15 14:00 21:45 05:29 Temperature 97.9 F 98.3 F 98.2 F Pulse Rate 93 H 83 95 H Respiratory 18 19 18 Rate Blood Pressure 118/77 120/85 134/87 O2 Sat by Pulse 99 100 100 Oximetry 11/03/15 05:37 Temperature 98.2 F Pulse Rate 95 H Respiratory 18 Rate Blood Pressure 134/87 O2 Sat by Pulse Oximetry Intake and Output (last 12 hours): Intake & Output 11/02/15 11/03/15 11/03/15 18:59 06:59 18:59 Intake Total 1000 800 Output Total 500 1050 Balance 500 -250 Intake: Tube Feeding 750 800 Other 250 Output: Urine 500 1050 Urethral (Baker) 500 1050 Other: # Bowel Movements 1 1 - Medications Medications: Current Medications Albuterol/Ipratropium (Duoneb 3 Mg/0.5 Mg (3 Ml) Ud) 3 ml INH RQ6 [facility] Last Admin: 11/03/15 07:44 Dose: 3 ml Aspirin (Aspirin) 325 mg PEG DAILY [facility] Last Admin: 11/02/15 09:23 Dose: 325 mg Clopidogrel Bisulfate (Plavix) 75 mg PEG DAILY [facility] Last Admin: 11/02/15 09:23 Dose: 75 mg Lisinopril (Zestril) 5 mg PO DAILY [facility] Last Admin: 11/02/15 09:23 Dose: 5 mg Phenytoin (Dilantin) 100 mg PEG TID [facility] Last Admin: 11/02/15 18:36 Dose: 100 mg Polyethylene Glycol (Miralax) 17 gm PEG BID [facility] Last Admin: 08/21/15 11:26 Dose: Not Given - Constitutional Appears: Non-toxic, No Acute Distress - Head Exam Head Exam: ATRAUMATIC, NORMAL INSPECTION, NORMOCEPHALIC - Eye Exam Eye Exam: Normal appearance, PERRL Pupil Exam: NORMAL ACCOMODATION - Neck Exam Additional comments: secretions around trach - Respiratory Exam Respiratory Exam: Rales, Rhonchi, NORMAL BREATHING PATTERN - Cardiovascular Exam Cardiovascular Exam: REGULAR RHYTHM, +S1, +S2. absent: Gallop, Rubs - GI/Abdominal Exam GI & Abdominal Exam: Normal Bowel Sounds, Soft - Neurological Exam Neurological exam: Altered - Skin Skin Exam: Normal Color Assessment/Plan (1) Leukocytosis Current Visit: Yes Status: Acute Comment: 10/26: Continue monitoring. F/U Thursday labs. 10/22: -WBC 10.6 WNL 10/18: -f/u blood work on 10/22 10/14: -Resolved, WBC=10.5 today 10/13: -last WBC on 10/11 was 13.1 -patient afebrile but does have sacral bed sore -consider CXR if pt becomes febrile -f/u WBC today 09/20: WBC 10.7; will f/u CBC on 09/25: WBC increased from to 17.2. replace baker catheter and f/u urine culture , urinalysis. f/u CXR in AM CXR - no active disease Monitor temperature Afebrile IV Cefepime 1gm q12h started 07/21 Monitor (2) Seizures Current Visit: Yes Status: Acute Comment: 10/29: Continue monitoring for seizure. 09/01: dilantin level 5.7, continue current management. 08/30--> repeat Dilantin level in am, cont meds, SZ precaution Continue dilantin 100mg via PEG TID Continue to monitor for seizure activity (3) Bed sore Current Visit: Yes Status: Acute Comment: 11/02: Continue wound care. Will check 1x a week. 10/23: Improving, continue wound care. 10/22: -wound care following patient 10/19: -examined today -continue treatment with [facility] and [facility] as per Wound Care 10/12--> cont LWC as per Plastic and Wound care team 10/10: Wound care recommendations: [facility] to buttocks around ulcer, MediHoney to necrotic tissue, Position Q2 hours, Recall when necrotic tissue is soft/loose for debridement 10/09: sacral ulcer, stage [address] Dr[address] Panchal consulted, f/u recommendations 08/09- stage one ulcer, healed, per nursing. continue repositioning of patient q2H dolphin mattress (4) Anoxic encephalopathy Current Visit: Yes Status: Acute Comment: Satting well on trach collar with FiO2 40% on PS/CPAP 10/17: Weaned off vent, now satting well on trach collar (5) Respiratory failure Current Visit: Yes Status: Acute Comment: Satting well on trach collar with FiO2 40% on PS/CPAP CXR (10/20) - enlarged cardiomediastinum silhouette with tortuous aorta. Underlying adenopathy or alternative pathologies cannot be excluded. Tracheostomy tube. Mild bibasilar atelectasis. 10/20: Patient satting at 100% on trach collar 40% FiO2 Patient coughing with thick secretions Rhonchi on exam Mucomyst and Duonebs started on 10/19 10/17:Weaned off vent, now satting well on trach collar 10/16: patient on trach collar, tolerating well. 10/12--> cont vent mx as per Pulm, unable to wean 10/06: no rhonchi or rales auscultated. lasix 40mg IVP once given yesterday. CXR - patchy right basilar airspace opacity with granulomatous changes in the left upper lobe and pleural thickening Dr. Salgado (pulm) on case - help very much appreciated (6) Prophylactic measure Current Visit: Yes Status: Acute Comment: Plavix 75mg through PEG. SCDs <Donnell Ying M - Last Filed: 11/03/15 14:03> Objective - Vital Signs/Intake and Output Vital Signs (last 24 hours): Vital Signs - 24 hr 11/02/15 11/02/15 11/03/15 14:00 21:45 05:29 Temperature 97.9 F 98.3 F 98.2 F Pulse Rate 93 H 83 95 H Respiratory 18 19 18 Rate Blood Pressure 118/77 120/85 134/87 O2 Sat by Pulse 99 100 100 Oximetry 11/03/15 11/03/15 05:37 10:07 Temperature 98.2 F Pulse Rate 95 H 95 H Respiratory 18 Rate Blood Pressure 134/87 O2 Sat by Pulse Oximetry Intake and Output (last 12 hours): Intake & Output 11/02/15 11/03/15 11/03/15 18:59 06:59 18:59 Intake Total 1000 800 Output Total 500 1050 Balance 500 -250 Intake: Tube Feeding 750 800 Other 250 Output: Urine 500 1050 Urethral (Baker) 500 1050 Other: # Bowel Movements 1 1 - Medications Medications: Current Medications Albuterol/Ipratropium (Duoneb 3 Mg/0.5 Mg (3 Ml) Ud) 3 ml INH RQ6 [facility] Last Admin: 11/03/15 07:44 Dose: 3 ml Aspirin (Aspirin) 325 mg PEG DAILY [facility] Last Admin: 11/03/15 09:49 Dose: 325 mg Clopidogrel Bisulfate (Plavix) 75 mg PEG DAILY [facility] Last Admin: 11/03/15 09:49 Dose: 75 mg Lisinopril (Zestril) 5 mg PO DAILY [facility] Last Admin: 11/03/15 09:49 Dose: 5 mg Phenytoin (Dilantin) 100 mg PEG TID [facility] Last Admin: 11/03/15 09:49 Dose: 100 mg Polyethylene Glycol (Miralax) 17 gm PEG BID [facility] Last Admin: 08/21/15 11:26 Dose: Not Given Attending/Attestation - Attestation I have personally seen and examined this patient.: Yes I have fully participated in the care of the patient.: Yes I have reviewed all pertinent clinical information: Yes Notes (Text): 11/03/15 14:02 Patient seen and examined at bedside independently. Continue current management. I agree with the above history and physical and assessment/plan by the resident. Awaiting placement.
[2015-11-03] MEDS: Phenytoin 100 mg/4 ml Oral Susp UD PEG SCH ×3 (09:49→17:02)
[2015-11-04] MEDS: Albuterol-Ipratrop 3 mg / 0.5 (3 ml) UD INH SCH ×4 (01:02→19:29)
[2015-11-04] MEDS: Phenytoin 100 mg/4 ml Oral Susp UD PEG SCH ×3 (09:38→17:03)
--- NOTE | 2015-11-04 10:45 | CP.PCM.PN ---
<Scout Marinelli - Last Filed: 11/04/15 10:42> Subjective - Subjective Subjective: Pt seen and examined at bedside this morning. Pt status unchanged, currently off vent support and awake. Not responding to command. Afebrile and continue observation. Respiratory removal of secretion noted. Review of Systems - Review of Systems Systems not reviewed;Unavailable: Altered Mental Status Objective - Vital Signs/Intake and Output Vital Signs (last 24 hours): Vital Signs - 24 hr 11/03/15 11/03/15 11/03/15 14:13 19:35 21:54 Temperature 99.0 F 98.7 F Pulse Rate 112 H 112 H 88 Respiratory 20 20 Rate Blood Pressure 119/76 106/70 O2 Sat by Pulse 99 97 Oximetry 11/04/15 11/04/15 05:48 08:49 Temperature 97.6 F Pulse Rate 92 H 92 H Respiratory 18 Rate Blood Pressure 115/75 O2 Sat by Pulse 99 Oximetry Intake and Output (last 12 hours): Intake & Output 11/03/15 11/04/15 11/04/15 18:59 06:59 18:59 Intake Total 800 950 Output Total 620 510 Balance 180 440 Intake: Tube Feeding 800 950 Output: Gastric Amount 20 10 Stomach 20 10 Urine 600 500 Urethral (Baker) 600 500 Other: # Bowel Movements 1 1 - Medications Medications: Current Medications Albuterol/Ipratropium (Duoneb 3 Mg/0.5 Mg (3 Ml) Ud) 3 ml INH RQ6 [facility] Last Admin: 11/04/15 07:44 Dose: 3 ml Aspirin (Aspirin) 325 mg PEG DAILY [facility] Last Admin: 11/04/15 09:38 Dose: 325 mg Clopidogrel Bisulfate (Plavix) 75 mg PEG DAILY [facility] Last Admin: 11/04/15 09:38 Dose: 75 mg Lisinopril (Zestril) 5 mg PO DAILY [facility] Last Admin: 11/04/15 09:38 Dose: 5 mg Phenytoin (Dilantin) 100 mg PEG TID [facility] Last Admin: 11/04/15 09:38 Dose: 100 mg Polyethylene Glycol (Miralax) 17 gm PEG BID [facility] Last Admin: 08/21/15 11:26 Dose: Not Given - Constitutional Appears: Non-toxic, No Acute Distress - Head Exam Head Exam: NORMAL INSPECTION, NORMOCEPHALIC - Eye Exam Eye Exam: Normal appearance, PERRL - Respiratory Exam Respiratory Exam: Clear to PA & Lateral, NORMAL BREATHING PATTERN Additional comments: trach in place - Cardiovascular Exam Cardiovascular Exam: REGULAR RHYTHM, +S1, +S2. absent: Gallop, Rubs - GI/Abdominal Exam GI & Abdominal Exam: Normal Bowel Sounds, Soft Additional comments: PEG in place - Neurological Exam Neurological exam: Alert, Altered - Skin Skin Exam: Normal Color Assessment/Plan (1) Leukocytosis Current Visit: Yes Status: Acute Comment: 10/26: Continue monitoring. F/U Thursday labs. 10/22: -WBC 10.6 WNL 10/18: -f/u blood work on 10/22 10/14: -Resolved, WBC=10.5 today 10/13: -last WBC on 10/11 was 13.1 -patient afebrile but does have sacral bed sore -consider CXR if pt becomes febrile -f/u WBC today 09/20: WBC 10.7; will f/u CBC on 09/25: WBC increased from to 17.2. replace baker catheter and f/u urine culture , urinalysis. f/u CXR in AM CXR - no active disease Monitor temperature Afebrile IV Cefepime 1gm q12h started 07/21 Monitor (2) Bed sore Current Visit: Yes Status: Acute Comment: 11/02: Continue wound care. Will check 1x a week. 10/23: Improving, continue wound care. 10/22: -wound care following patient 10/19: -examined today -continue treatment with S[facility]icare and Medihoney as per Wound Care 10/12--> cont LWC as per Plastic and Wound care team 10/10: Wound care recommendations: SensiCare to buttocks around ulcer, MediHoney to necrotic tissue, Position Q2 hours, Recall when necrotic tissue is soft/loose for debridement 10/09: sacral ulcer, stage [address] Panchal consulted, f/u recommendations 08/09- stage one ulcer, healed, per nursing. continue repositioning of patient q2H dolphin mattress (3) Anoxic encephalopathy Current Visit: Yes Status: Acute Comment: Saturating well on trach collar with FiO2 40% 10/17: Weaned off vent, now satting well on trach collar (4) Seizures Current Visit: Yes Status: Acute Comment: 12/7: Continue monitoring for seizure. 09/01: dilantin level 5.7, continue current management. 08/30--> repeat Dilantin level in am, cont meds, SZ precaution Continue dilantin 100mg via PEG TID Continue to monitor for seizure activity (5) Respiratory failure Current Visit: Yes Status: Acute Comment: Satting well on trach collar with FiO2 40% on PS/CPAP CXR (10/20) - enlarged cardiomediastinum silhouette with tortuous aorta. Underlying adenopathy or alternative pathologies cannot be excluded. Tracheostomy tube. Mild bibasilar atelectasis. 10/20: Patient satting at 100% on trach collar 40% FiO2 Patient coughing with thick secretions Rhonchi on exam Mucomyst and Duonebs started on 10/19 10/17:Weaned off vent, now satting well on trach collar 10/16: patient on trach collar, tolerating well. 10/12--> cont vent mx as per Pulm, unable to wean 10/06: no rhonchi or rales auscultated. lasix 40mg IVP once given yesterday. CXR - patchy right basilar airspace opacity with granulomatous changes in the left upper lobe and pleural thickening Dr. Salgado (pul) on case - help very much appreciated (6) Prophylactic measure Current Visit: Yes Status: Acute Comment: Plavix 75mg through PEG. SCDs <Donnell Ying M - Last Filed: 11/04/15 13:38> Objective - Vital Signs/Intake and Output Vital Signs (last 24 hours): Vital Signs - 24 hr 11/03/15 11/03/15 11/03/15 14:13 19:35 21:54 Temperature 99.0 F 98.7 F Pulse Rate 112 H 112 H 88 Respiratory 20 20 Rate Blood Pressure 119/76 106/70 O2 Sat by Pulse 99 97 Oximetry 11/04/15 11/04/15 05:48 08:49 Temperature 97.6 F Pulse Rate 92 H 92 H Respiratory 18 Rate Blood Pressure 115/75 O2 Sat by Pulse 99 Oximetry Intake and Output (last 12 hours): Intake & Output 11/03/15 11/04/15 11/04/15 18:59 06:59 18:59 Intake Total 800 950 Output Total 620 510 Balance 180 440 Intake: Tube Feeding 800 950 Output: Gastric Amount 20 10 Stomach 20 10 Urine 600 500 Urethral (Baker) 600 500 Other: # Bowel Movements 1 1 - Medications Medications: Current Medications Albuterol/Ipratropium (Duoneb 3 Mg/0.5 Mg (3 Ml) Ud) 3 ml INH RQ6 [facility] Last Admin: 11/04/15 13:34 Dose: 3 ml Aspirin (Aspirin) 325 mg PEG DAILY [facility] Last Admin: 11/04/15 09:38 Dose: 325 mg Clopidogrel Bisulfate (Plavix) 75 mg PEG DAILY [facility] Last Admin: 11/04/15 09:38 Dose: 75 mg Lisinopril (Zestril) 5 mg PO DAILY [facility] Last Admin: 11/04/15 09:38 Dose: 5 mg Phenytoin (Dilantin) 100 mg PEG TID [facility] Last Admin: 11/04/15 09:38 Dose: 100 mg Polyethylene Glycol (Miralax) 17 gm PEG BID [facility] Last Admin: 08/21/15 11:26 Dose: Not Given Attending/Attestation - Attestation I have personally seen and examined this patient.: Yes I have fully participated in the care of the patient.: Yes I have reviewed all pertinent clinical information: Yes Notes (Text): 11/04/15 13:38 Patient seen and examined at bedside. No change in clinical condition. Lungs clear on auscultation. We will continue current management. Awaiting placement.
[2015-11-05] MEDS: Albuterol-Ipratrop 3 mg / 0.5 (3 ml) UD INH SCH ×4 (00:59→20:04)
[2015-11-05 07:32] LABS: BASO % 0.4 % (0.0-2.0); EOS % 13.8 % (0.0-4.0); HEMOGLOBIN 12.2 g/dL (12.0-18.0); MEAN CELL VOLUME 93.8 fL (80.0-94.0); MEAN CORPUSCULAR HEMOGLOBIN 30.5 pg (27.0-31.0); MEAN CORPUSCULAR HGB CONC 32.5 g/dL (33.0-37.0); MEAN PLATELET VOLUME 8.2 fL (7.2-11.7); MONO % 7.2 % (0.0-10.0); NEUT # 8.4 K/uL (1.8-7.0); NEUT % 66.6 % (50.0-75.0); NRBC % 0.1 % (0.0-2.0); RBC 4.02 Mil/uL (4.40-5.90); RED CELL DISTRIBUTION WIDTH 14.5 % (11.5-14.5); WHITE BLOOD COUNT 12.6 K/uL (4.8-10.8)
[2015-11-05 07:33] LABS: BASO # 0.1 K/uL (0.0-0.2); EOS # 1.7 K/uL (0.0-0.7); LYMPH # 1.5 K/uL (1.0-4.3); MONO # 0.9 K/uL (0.0-0.8)
[2015-11-05 08:32] LABS: ALBUMIN 3.4 g/dL (3.5-5.0)
[2015-11-05 08:35] LABS: ALB/GLOB RATIO 0.9 (1.0-2.1); ALT/SGPT 65 U/L (21-72); AST/SGOT 35 U/L (17-59); BLOOD UREA NITROGEN 18 mg/dL (9-20); GFR NON-AFRICAN AMERICAN > 60
[2015-11-05 08:36] LABS: CALCIUM 8.5 mg/dL (8.4-10.2)
[2015-11-05] MEDS: Phenytoin 100 mg/4 ml Oral Susp UD PEG SCH ×3 (09:33→18:00)
--- NOTE | 2015-11-05 15:02 | CP.PCM.PN ---
<Scout Marinelli - Last Filed: 11/05/15 14:59> Subjective - Subjective Subjective: Pt seen and examined at bedside this morning. Pt status unchanged, currently off vent support and awake. Not responding to command. Afebrile and continue observation. Continue with wound care and check. Review of Systems - Review of Systems Systems not reviewed;Unavailable: Altered Mental Status Objective - Vital Signs/Intake and Output Vital Signs (last 24 hours): Vital Signs - 24 hr 11/04/15 11/04/15 11/05/15 20:17 21:17 06:08 Temperature 98.5 F 98.9 F Pulse Rate 100 H 90 90 Respiratory 19 19 Rate Blood Pressure 124/85 119/75 O2 Sat by Pulse 96 99 Oximetry 11/05/15 11/05/15 08:57 14:09 Temperature 98.0 F Pulse Rate 90 85 Respiratory 20 Rate Blood Pressure 123/80 O2 Sat by Pulse 100 Oximetry Intake and Output (last 12 hours): Intake & Output 11/04/15 11/05/15 11/05/15 18:59 06:59 18:59 Intake Total 1200 900 Output Total 264 750 6529 Balance 350 0 -1200 Intake: Tube Feeding 800 700 Other 400 200 Output: Urine 279 997 8002 Urethral (Baker) 125 682 [id number] Other: # Bowel Movements 1 - Medications Medications: Current Medications Albuterol/Ipratropium (Duoneb 3 Mg/0.5 Mg (3 Ml) Ud) 3 ml INH RQ6 [facility] Last Admin: 11/05/15 13:59 Dose: 3 ml Aspirin (Aspirin) 325 mg PO DAILY [facility] Clopidogrel Bisulfate (Plavix) 75 mg PO DAILY [facility] Lisinopril (Zestril) 5 mg PO DAILY [facility] Last Admin: 11/05/15 09:33 Dose: 5 mg Phenytoin (Dilantin) 100 mg PEG TID [facility] Last Admin: 11/05/15 13:28 Dose: 100 mg Polyethylene Glycol (Miralax) 17 gm PEG BID [facility] Last Admin: 08/21/15 11:26 Dose: Not Given - Labs Labs (last 24 hours): Laboratory Results - last 24 hr 11/05/15 07:12 WBC 12.6 H RBC 4.02 L Hgb 12.2 Hct 37.7 MCV 93.8 D MCH 30.5 MCHC 32.5 L RDW 14.5 Plt Count 350 MPV 8.2 Neut % (Auto) 66.6 Lymph % (Auto) 12.0 L [place] % (Auto) 7.2 Eos % (Auto) 13.8 H Baso % (Auto) 0.4 Neut # 8.4 H Lymph # 1.5 [place] # 0.9 H Eos # 1.7 H Baso # 0.1 Sodium 137 Potassium 4.2 Chloride 100 Carbon Dioxide 29 Anion Gap 12 BUN 18 Creatinine 0.4 L Est GFR ( Amer) > 60 Est GFR (Non-Af Amer) > 60 Random Glucose 135 H Calcium 8.5 Phosphorus 3.8 Magnesium 2.2 Total Bilirubin 0.3 AST 35 ALT 65 Alkaline Phosphatase 105 Total Protein 7.3 Albumin 3.4 L Globulin 3.9 Albumin/Globulin Ratio 0.9 L - Constitutional Appears: Non-toxic, No Acute Distress - Head Exam Head Exam: NORMAL INSPECTION, NORMOCEPHALIC - Eye Exam Eye Exam: Normal appearance, PERRL Pupil Exam: NORMAL ACCOMODATION - Respiratory Exam Respiratory Exam: Rales, NORMAL BREATHING PATTERN - Cardiovascular Exam Cardiovascular Exam: REGULAR RHYTHM, +S1, +S2 - GI/Abdominal Exam GI & Abdominal Exam: Normal Bowel Sounds, Soft - Neurological Exam Neurological exam: Altered - Skin Skin Exam: Normal Color Assessment/Plan (1) Leukocytosis Current Visit: Yes Status: Acute Comment: 10/26: Continue monitoring. F/U Thursday labs. 10/22: -WBC 10.6 WNL 10/18: -f/u blood work on 10/22 10/14: -Resolved, WBC=10.5 today 10/13: -last WBC on 10/11 was 13.1 -patient afebrile but does have sacral bed sore -consider CXR if pt becomes febrile -f/u WBC today 09/20: WBC 10.7; will f/u CBC on 09/25: WBC increased from to 17.2. replace baker catheter and f/u urine culture , urinalysis. f/u CXR in AM CXR - no active disease Monitor temperature Afebrile IV Cefepime 1gm q12h started 07/21 Monitor (2) Bed sore Current Visit: Yes Status: Acute Comment: 11/02: Continue wound care. Will check 1x a week. 10/23: Improving, continue wound care. 10/22: -wound care following patient 10/19: -examined today -continue treatment with [facility] and Medihoney as per Wound Care 10/12--> cont LWC as per Plastic and Wound care team 10/10: Wound care recommendations: S[facility] to buttocks around ulcer, MediHoney to necrotic tissue, Position Q2 hours, Recall when necrotic tissue is soft/loose for debridement 10/09: sacral ulcer, stage [address] Dr. Panchal consulted, f/u recommendations 08/09- stage one ulcer, healed, per nursing. continue repositioning of patient q2H dolphin mattress (3) Anoxic encephalopathy Current Visit: Yes Status: Acute Comment: Saturating well on trach collar with FiO2 40% 10/17: Weaned off vent, now satting well on trach collar (4) Seizures Current Visit: Yes Status: Acute Comment: 10/29: Continue monitoring for seizure. 09/01: dilantin level 5.7, continue current management. 08/30--> repeat Dilantin level in am, cont meds, SZ precaution Continue dilantin 100mg via PEG TID Continue to monitor for seizure activity (5) Respiratory failure Current Visit: Yes Status: Acute Comment: Satting well on trach collar with FiO2 40% on PS/CPAP CXR (10/20) - enlarged cardiomediastinum silhouette with tortuous aorta. Underlying adenopathy or alternative pathologies cannot be excluded. Tracheostomy tube. Mild bibasilar atelectasis. 10/20: Patient satting at 100% on trach collar 40% FiO2 Patient coughing with thick secretions Rhonchi on exam Mucomyst and Duonebs started on 10/19 10/17:Weaned off vent, now satting well on trach collar 10/16: patient on trach collar, tolerating well. 10/12--> cont vent mx as per Pulm, unable to wean 10/06: no rhonchi or rales auscultated. lasix 40mg IVP once given yesterday. CXR - patchy right basilar airspace opacity with granulomatous changes in the left upper lobe and pleural thickening Dr. Salgado (pulm) on case - help very much appreciated (6) Prophylactic measure Current Visit: Yes Status: Acute Comment: Plavix 75mg through PEG, renewed 11/05. SCDs <RaviRashel - Last Filed: 11/06/15 05:50> Objective - Vital Signs/Intake and Output Vital Signs (last 24 hours): Vital Signs - 24 hr 11/05/15 11/05/15 11/05/15 06:08 08:57 14:09 Temperature 98.9 F 98.0 F Pulse Rate 90 90 85 Respiratory 19 20 Rate Blood Pressure 119/75 123/80 O2 Sat by Pulse 99 100 Oximetry 11/05/15 11/05/15 20:00 21:26 Temperature 97.8 F Pulse Rate 88 88 Respiratory 18 Rate Blood Pressure 131/87 O2 Sat by Pulse 98 Oximetry Intake and Output (last 12 hours): Intake & Output 11/05/15 11/05/15 11/06/15 06:59 18:59 06:59 Intake Total 900 1200 Output Total 900 1200 1100 Balance 0 0 -1100 Intake: Tube Feeding 700 800 Other 200 400 Output: Urine 900 1200 1100 Urethral (Baker) 900 1200 1100 Other: # Bowel Movements 1 - Medications Medications: Current Medications Albuterol/Ipratropium (Duoneb 3 Mg/0.5 Mg (3 Ml) Ud) 3 ml INH RQ6 [facility] Last Admin: 11/06/15 01:02 Dose: 3 ml Aspirin (Aspirin) 325 mg PO DAILY [facility] Clopidogrel Bisulfate (Plavix) 75 mg PO DAILY [facility] Lisinopril (Zestril) 5 mg PO DAILY [facility] Last Admin: 11/05/15 09:33 Dose: 5 mg Phenytoin (Dilantin) 100 mg PEG TID [facility] Last Admin: 11/05/15 13:28 Dose: 100 mg Polyethylene Glycol (Miralax) 17 gm PEG BID [facility] Last Admin: 08/21/15 11:26 Dose: Not Given - Labs Labs (last 24 hours): Laboratory Results - last 24 hr 11/05/15 07:12 WBC 12.6 H RBC 4.02 L Hgb 12.2 Hct 37.7 MCV 93.8 D MCH 30.5 MCHC 32.5 L RDW 14.5 Plt Count 350 MPV 8.2 Neut % (Auto) 66.6 Lymph % (Auto) 12.0 L [place] % (Auto) 7.2 Eos % (Auto) 13.8 H Baso % (Auto) 0.4 Neut # 8.4 H Lymph # 1.5 [place] # 0.9 H Eos # 1.7 H Baso # 0.1 Sodium 137 Potassium 4.2 Chloride 100 Carbon Dioxide 29 Anion Gap 12 BUN 18 Creatinine 0.4 L Est GFR ( Amer) > 60 Est GFR (Non-Af Amer) > 60 Random Glucose 135 H Calcium 8.5 Phosphorus 3.8 Magnesium 2.2 Total Bilirubin 0.3 AST 35 ALT 65 Alkaline Phosphatase 105 Total Protein 7.3 Albumin 3.4 L Globulin 3.9 Albumin/Globulin Ratio 0.9 L Assessment/Plan (1) Anoxic encephalopathy Current Visit: Yes Status: Acute Comment: Saturating well on trach collar with FiO2 40% 10/17: Weaned off vent, now satting well on trach collar (2) STEMI (ST elevation myocardial infarction) Current Visit: Yes Status: Acute Comment: cardiac stents on 06/13/15. Continue Lisinopril 5mg PO daily Continue Plavix 75mg PO daily Continue ASA 325mg PO daily (3) Respiratory failure Current Visit: Yes Status: Acute Comment: Satting well on trach collar with FiO2 40% on PS/CPAP CXR (10/20) - enlarged cardiomediastinum silhouette with tortuous aorta. Underlying adenopathy or alternative pathologies cannot be excluded. Tracheostomy tube. Mild bibasilar atelectasis. 10/20: Patient satting at 100% on trach collar 40% FiO2 Patient coughing with thick secretions Rhonchi on exam Mucomyst and Duonebs started on 10/19 10/17:Weaned off vent, now satting well on trach collar 10/16: patient on trach collar, tolerating well. 10/12--> cont vent mx as per Pulm, unable to wean 10/06: no rhonchi or rales auscultated. lasix 40mg IVP once given yesterday. CXR - patchy right basilar airspace opacity with granulomatous changes in the left upper lobe and pleural thickening Dr. Salgado (pulm) on case - help very much appreciated (4) Seizures Current Visit: Yes Status: Acute Comment: 10/29: Continue monitoring for seizure. 09/01: dilantin level 5.7, continue current management. 08/30--> repeat Dilantin level in am, cont meds, SZ precaution Continue dilantin 100mg via PEG TID Continue to monitor for seizure activity (5) Prophylactic measure Current Visit: Yes Status: Acute Comment: Plavix 75mg through PEG, renewed 12/14. SCDs (6) Bed sore Current Visit: Yes Status: Acute Comment: 11/02: Continue wound care. Will check 1x a week. 10/23: Improving, continue wound care. 10/22: -wound care following patient 10/19: -examined today -continue treatment with S[facility] and Medihoney as per Wound Care 10/12--> cont LWC as per Plastic and Wound care team 10/10: Wound care recommendations: S[facility] to buttocks around ulcer, MediHoney to necrotic tissue, Position Q2 hours, Recall when necrotic tissue is soft/loose for debridement 10/09: sacral ulcer, stage [address] Dr. Panchal consulted, f/u recommendations 08/09- stage one ulcer, healed, per nursing. [facility] Attending/Attestation - Attestation I have personally seen and examined this patient.: Yes I have fully participated in the care of the patient.: Yes I have reviewed all pertinent clinical information: Yes Notes (Text): 11/06/15 05:48 (Late entry for 11/05/15) Patient seen and examined during round with residents. pt had no new events. pt is on TC tolerating wekll cont supportive care Cont Peg TF LWC for sacral wound Labs were reviewed---- stable DC planning--- awaiting placement.
[2015-11-06] MEDS: Albuterol-Ipratrop 3 mg / 0.5 (3 ml) UD INH SCH ×4 (01:02→19:07)
[2015-11-06] MEDS: Phenytoin 100 mg/4 ml Oral Susp UD PEG SCH ×3 (09:39→17:01)
--- NOTE | 2015-11-06 13:07 | CP.PCM.PN ---
<Scout Marinelli - Last Filed: 11/06/15 13:04> Subjective - Subjective Subjective: Pt seen and examined at bedside this morning. Pt status unchanged, currently off vent support and awake. Not responding to command. Afebrile and continue observation. Ulcer visualized today, continue with wound care and check. Review of Systems - Review of Systems Systems not reviewed;Unavailable: Altered Mental Status Objective - Vital Signs/Intake and Output Vital Signs (last 24 hours): Vital Signs - 24 hr 11/05/15 11/05/15 11/05/15 14:09 20:00 21:26 Temperature 98.0 F 97.8 F Pulse Rate 85 88 88 Respiratory 20 18 Rate Blood Pressure 123/80 131/87 O2 Sat by Pulse 100 98 Oximetry 11/06/15 06:23 Temperature 98 F Pulse Rate 98 H Respiratory 18 Rate Blood Pressure 136/81 O2 Sat by Pulse 100 Oximetry Intake and Output (last 12 hours): Intake & Output 11/05/15 11/06/15 11/06/15 18:59 06:59 18:59 Intake Total 1200 900 Output Total 1200 1650 Balance 0 -750 Intake: Tube Feeding 800 700 Other 400 200 Output: Urine 1200 1650 Urethral (Baker) 1200 1650 Other: # Bowel Movements 0 - Medications Medications: Current Medications Albuterol/Ipratropium (Duoneb 3 Mg/0.5 Mg (3 Ml) Ud) 3 ml INH RQ6 [facility] Last Admin: 11/06/15 07:47 Dose: 3 ml Aspirin (Aspirin) 325 mg PO DAILY [facility] Last Admin: 11/06/15 09:39 Dose: 325 mg Clopidogrel Bisulfate (Plavix) 75 mg PO DAILY [facility] Last Admin: 11/06/15 09:39 Dose: 75 mg Lisinopril (Zestril) 5 mg PO DAILY [facility] Last Admin: 11/06/15 09:39 Dose: 5 mg Phenytoin (Dilantin) 100 mg PEG TID [facility] Last Admin: 11/06/15 09:39 Dose: 100 mg Polyethylene Glycol (Miralax) 17 gm PEG BID [facility] Last Admin: 08/21/15 11:26 Dose: Not Given - Constitutional Appears: Non-toxic, No Acute Distress - Head Exam Head Exam: NORMAL INSPECTION, NORMOCEPHALIC - Eye Exam Eye Exam: Normal appearance Pupil Exam: NORMAL ACCOMODATION - Respiratory Exam Respiratory Exam: Clear to PA & Lateral, NORMAL BREATHING PATTERN - Cardiovascular Exam Cardiovascular Exam: REGULAR RHYTHM, +S1, +S2 - GI/Abdominal Exam GI & Abdominal Exam: Normal Bowel Sounds, Soft - Extremities Exam Extremities exam: normal inspection. absent: pedal edema - Back Exam Additional comments: sacral ulcer visualized. Medihoney applied by CP. - Neurological Exam Neurological exam: Altered - Skin Skin Exam: Erythema (bilateral buttocks ) Assessment/Plan (1) Bed sore Current Visit: Yes Status: Acute Comment: 11/06: Visualized today. Continue wound care. 11/02: Continue wound care. Will check 1x a week. 10/23: Improving, continue wound care. 10/22: -wound care following patient 10/19: -examined today -continue treatment with Sensicare and Medihoney as per Wound Care 10/12--> cont LWC as per Plastic and Wound care team 10/10: Wound care recommendations: SensiCare to buttocks around ulcer, MediHoney to necrotic tissue, Position Q2 hours, Recall when necrotic tissue is soft/loose for debridement 10/09: sacral ulcer, stage [address] Dr. Panchal consulted, f/u recommendations 08/09- stage one ulcer, healed, per nursing. continue repositioning of patient q2H dolphin mattress (2) Anoxic encephalopathy Current Visit: Yes Status: Acute Comment: Saturating well on trach collar with FiO2 40% 10/17: Weaned off vent, now satting well on trach collar (3) Leukocytosis Current Visit: Yes Status: Acute Comment: 10/26: Continue monitoring. F/U Thursday labs. 10/22: -WBC 10.6 WNL 10/18: -f/u blood work on 10/22 10/14: -Resolved, WBC=10.5 today 10/13: -last WBC on 10/11 was 13.1 -patient afebrile but does have sacral bed sore -consider CXR if pt becomes febrile -f/u WBC today 09/20: WBC 10.7; will f/u CBC on 09/25: WBC increased from to 17.2. replace baker catheter and f/u urine culture , urinalysis. f/u CXR in AM CXR - no active disease Monitor temperature Afebrile IV Cefepime 1gm q12h started 8/29 Monitor (4) Seizures Current Visit: Yes Status: Acute Comment: 10/29: Continue monitoring for seizure. 09/01: dilantin level 5.7, continue current management. 08/30--> repeat Dilantin level in am, cont meds, SZ precaution Continue dilantin 100mg via PEG TID Continue to monitor for seizure activity (5) Respiratory failure Current Visit: Yes Status: Acute Comment: Satting well on trach collar with FiO2 40% on PS/CPAP CXR (10/20) - enlarged cardiomediastinum silhouette with tortuous aorta. Underlying adenopathy or alternative pathologies cannot be excluded. Tracheostomy tube. Mild bibasilar atelectasis. 10/20: Patient satting at 100% on trach collar 40% FiO2 Patient coughing with thick secretions Rhonchi on exam Mucomyst and Duonebs started on 10/19 10/17:Weaned off vent, now satting well on trach collar 10/16: patient on trach collar, tolerating well. 10/12--> cont vent mx as per Pulm, unable to wean 10/06: no rhonchi or rales auscultated. lasix 40mg IVP once given yesterday. CXR - patchy right basilar airspace opacity with granulomatous changes in the left upper lobe and pleural thickening Dr. Salgado (pul) on case - help very much appreciated (6) Prophylactic measure Current Visit: Yes Status: Acute Comment: Per social work, will continue searching for placement in [facility] area. Plavix 75mg through PEG, renewed 11/05. SCDs <Rashel Rodrigues - Last Filed: 11/06/15 15:24> Objective - Vital Signs/Intake and Output Vital Signs (last 24 hours): Vital Signs - 24 hr 11/05/15 11/05/15 11/06/15 20:00 21:26 06:23 Temperature 97.8 F 98 F Pulse Rate 88 88 98 H Respiratory 18 18 Rate Blood Pressure 131/87 136/81 O2 Sat by Pulse 98 100 Oximetry 11/06/15 13:46 Temperature 98.3 F Pulse Rate 96 H Respiratory 20 Rate Blood Pressure 144/77 O2 Sat by Pulse 98 Oximetry Intake and Output (last 12 hours): Intake & Output 11/05/15 11/06/15 11/06/15 18:59 06:59 18:59 Intake Total 1200 900 Output Total 1200 1650 Balance 0 -750 Intake: Tube Feeding 800 700 Other 400 200 Output: Urine 1200 1650 Urethral (Baker) 1200 1650 Other: # Bowel Movements 0 - Medications Medications: Current Medications Albuterol/Ipratropium (Duoneb 3 Mg/0.5 Mg (3 Ml) Ud) 3 ml INH RQ6 [facility] Last Admin: 11/06/15 13:38 Dose: 3 ml Aspirin (Aspirin) 325 mg PO DAILY [facility] Last Admin: 11/06/15 09:39 Dose: 325 mg Clopidogrel Bisulfate (Plavix) 75 mg PO DAILY [facility] Last Admin: 11/06/15 09:39 Dose: 75 mg Lisinopril (Zestril) 5 mg PO DAILY [facility] Last Admin: 11/06/15 09:39 Dose: 5 mg Phenytoin (Dilantin) 100 mg PEG TID [facility] Last Admin: 11/06/15 13:30 Dose: 100 mg Polyethylene Glycol (Miralax) 17 gm PEG BID [facility] Last Admin: 08/21/15 11:26 Dose: Not Given Assessment/Plan (1) Anoxic encephalopathy Current Visit: Yes Status: Acute Comment: Saturating well on trach collar with FiO2 40% 10/17: Weaned off vent, now satting well on trach collar (2) STEMI (ST elevation myocardial infarction) Current Visit: Yes Status: Acute Comment: cardiac stents on 06/13/15. Continue Lisinopril 5mg PO daily Continue Plavix 75mg PO daily Continue ASA 325mg PO daily (3) Respiratory failure Current Visit: Yes Status: Acute Comment: Satting well on trach collar with FiO2 40% on PS/CPAP CXR (10/20) - enlarged cardiomediastinum silhouette with tortuous aorta. Underlying adenopathy or alternative pathologies cannot be excluded. Tracheostomy tube. Mild bibasilar atelectasis. 10/20: Patient satting at 100% on trach collar 40% FiO2 Patient coughing with thick secretions Rhonchi on exam Mucomyst and Duonebs started on 10/19 10/17:Weaned off vent, now satting well on trach collar 10/16: patient on trach collar, tolerating well. 10/12--> cont vent mx as per Pulm, unable to wean 10/06: no rhonchi or rales auscultated. lasix 40mg IVP once given yesterday. CXR - patchy right basilar airspace opacity with granulomatous changes in the left upper lobe and pleural thickening Dr. Salgado (pul) on case - help very much appreciated (4) Seizures Current Visit: Yes Status: Acute Comment: 10/29: Continue monitoring for seizure. 09/01: dilantin level 5.7, continue current management. 08/30--> repeat Dilantin level in am, cont meds, SZ precaution Continue dilantin 100mg via PEG TID Continue to monitor for seizure activity (5) Prophylactic measure Current Visit: Yes Status: Acute Comment: Per social work, will continue searching for placement in [facility] area. Plavix 75mg through PEG, renewed 11/05. SCDs (6) Bed sore Current Visit: Yes Status: Acute Comment: 11/06: Visualized today. Continue wound care. 11/02: Continue wound care. Will check 1x a week. 10/23: Improving, continue wound care. 10/22: -wound care following patient 10/19: -examined today -continue treatment with Sensicare and Medihoney as per Wound Care 10/12--> cont LWC as per Plastic and Wound care team 10/10: Wound care recommendations: SensiCare to buttocks around ulcer, MediHoney to necrotic tissue, Position Q2 hours, Recall when necrotic tissue is soft/loose for debridement 10/09: sacral ulcer, stage [address] Dr. Panchal consulted, f/u recommendations 08/09- stage one ulcer, healed, per nursing. [facility] Attending/Attestation - Attestation I have personally seen and examined this patient.: Yes I have fully participated in the care of the patient.: Yes I have reviewed all pertinent clinical information: Yes Notes (Text): 11/06/15 15:23 Patient was seen and examined during round with resident. pt is stable still on TC pt's sacral wound was noted-- stage 2 Sacral decubitus ulcer DC Planning--- awaiting placement.
[2015-11-07] MEDS: Albuterol-Ipratrop 3 mg / 0.5 (3 ml) UD INH SCH ×4 (01:35→19:28)
[2015-11-07] MEDS: Phenytoin 100 mg/4 ml Oral Susp UD PEG SCH ×3 (09:29→18:00)
--- NOTE | 2015-11-07 17:33 | CP.PCM.PN ---
<Scout Marinelli - Last Filed: 11/07/15 17:30> Subjective - Subjective Subjective: Pt seen and examined at bedside this morning. Status unchanged, remains altered. ROS unattainable and not following commands in Mandarin. Per pulm unable to cap trach due to secretions. Review of Systems - Review of Systems Systems not reviewed;Unavailable: Altered Mental Status Objective - Vital Signs/Intake and Output Vital Signs (last 24 hours): Vital Signs - 24 hr 11/06/15 11/06/15 11/07/15 20:00 21:40 05:30 Temperature 98.6 F 98.9 F Pulse Rate 96 H 91 H 87 Respiratory 20 20 Rate Blood Pressure 109/71 128/84 O2 Sat by Pulse 98 Oximetry 11/07/15 11/07/15 12:35 13:36 Temperature 98.6 F Pulse Rate 87 88 Respiratory 20 Rate Blood Pressure 125/71 O2 Sat by Pulse 99 Oximetry Intake and Output (last 12 hours): Intake & Output 11/06/15 11/07/15 11/07/15 18:59 06:59 18:59 Intake Total 800 900 800 Output Total 700 700 600 Balance 100 200 200 Intake: Tube Feeding 800 700 800 Other 200 Output: Urine 700 700 600 Urethral (Baker) 700 700 600 Other: # Bowel Movements 2 0 - Medications Medications: Current Medications Albuterol/Ipratropium (Duoneb 3 Mg/0.5 Mg (3 Ml) Ud) 3 ml INH RQ6 [facility] Last Admin: 11/07/15 13:35 Dose: 3 ml Aspirin (Aspirin) 325 mg PO DAILY [facility] Last Admin: 11/07/15 09:29 Dose: 325 mg Clopidogrel Bisulfate (Plavix) 75 mg PO DAILY [facility] Last Admin: 11/07/15 09:29 Dose: 75 mg Lisinopril (Zestril) 5 mg PO DAILY [facility] Last Admin: 11/07/15 09:29 Dose: 5 mg Phenytoin (Dilantin) 100 mg PEG TID [facility] Last Admin: 11/07/15 09:29 Dose: 100 mg Polyethylene Glycol (Miralax) 17 gm PEG BID [facility] Last Admin: 08/21/15 11:26 Dose: Not Given - Constitutional Appears: Non-toxic, No Acute Distress - Head Exam Head Exam: NORMAL INSPECTION, NORMOCEPHALIC - Eye Exam Eye Exam: Normal appearance Pupil Exam: NORMAL ACCOMODATION - Respiratory Exam Respiratory Exam: Rales, NORMAL BREATHING PATTERN - Cardiovascular Exam Cardiovascular Exam: REGULAR RHYTHM, +S1, +S2. absent: Gallop, Rubs - GI/Abdominal Exam GI & Abdominal Exam: Normal Bowel Sounds, Soft - Neurological Exam Neurological exam: Altered - Skin Skin Exam: Normal Color Assessment/Plan (1) Bed sore Current Visit: Yes Status: Acute Comment: 11/06: Visualized today. Continue wound care. 11/02: Continue wound care. Will check 1x a week. 10/23: Improving, continue wound care. 10/22: -wound care following patient 10/19: -examined today -continue treatment with Sensicare and Medihoney as per Wound Care 10/12--> cont LWC as per Plastic and Wound care team 10/10: Wound care recommendations: SensiCare to buttocks around ulcer, MediHoney to necrotic tissue, Position Q2 hours, Recall when necrotic tissue is soft/loose for debridement 10/09: sacral ulcer, stage [address] Dr. Panchal consulted, f/u recommendations 08/09- stage one ulcer, healed, per nursing. continue repositioning of patient q2H dolphin mattress (2) Anoxic encephalopathy Current Visit: Yes Status: Acute Comment: Saturating well on trach collar with FiO2 40% 10/17: Weaned off vent, now satting well on trach collar (3) Leukocytosis Current Visit: Yes Status: Acute Comment: 10/26: Continue monitoring. F/U Thursday labs. 10/22: -WBC 10.6 WNL 10/18: -f/u blood work on 10/22 10/14: -Resolved, WBC=10.5 today 10/13: -last WBC on 10/11 was 13.1 -patient afebrile but does have sacral bed sore -consider CXR if pt becomes febrile -f/u WBC today 09/20: WBC 10.7; will f/u CBC on 09/25: WBC increased from to 17.2. replace baker catheter and f/u urine culture , urinalysis. f/u CXR in AM CXR - no active disease Monitor temperature Afebrile IV Cefepime 1gm q12h started 07/21 Monitor (4) Seizures Current Visit: Yes Status: Acute Comment: 10/29: Continue monitoring for seizure. 09/01: dilantin level 5.7, continue current management. 08/30--> repeat Dilantin level in am, cont meds, SZ precaution Continue dilantin 100mg via PEG TID Continue to monitor for seizure activity (5) Respiratory failure Current Visit: Yes Status: Acute Comment: Satting well on trach collar with FiO2 40% on PS/CPAP CXR (10/20) - enlarged cardiomediastinum silhouette with tortuous aorta. Underlying adenopathy or alternative pathologies cannot be excluded. Tracheostomy tube. Mild bibasilar atelectasis. 10/20: Patient satting at 100% on trach collar 40% FiO2 Patient coughing with thick secretions Rhonchi on exam Mucomyst and Duonebs started on 10/19 10/17:Weaned off vent, now satting well on trach collar 10/16: patient on trach collar, tolerating well. 10/12--> cont vent mx as per Pulm, unable to wean 10/06: no rhonchi or rales auscultated. lasix 40mg IVP once given yesterday. CXR - patchy right basilar airspace opacity with granulomatous changes in the left upper lobe and pleural thickening Dr. Salgado (pul) on case - help very much appreciated (6) Prophylactic measure Current Visit: Yes Status: Acute Comment: Per social work, will continue searching for placement in [facility] area. Plavix 75mg through PEG, renewed 11/05. SCDs <Rashel Rodrigues - Last Filed: 11/07/15 18:22> Objective - Vital Signs/Intake and Output Vital Signs (last 24 hours): Vital Signs - 24 hr 11/06/15 11/06/15 11/07/15 20:00 21:40 05:30 Temperature 98.6 F 98.9 F Pulse Rate 96 H 91 H 87 Respiratory 20 20 Rate Blood Pressure 109/71 128/84 O2 Sat by Pulse 98 Oximetry 11/07/15 11/07/15 12:35 13:36 Temperature 98.6 F Pulse Rate 87 88 Respiratory 20 Rate Blood Pressure 125/71 O2 Sat by Pulse 99 Oximetry Intake and Output (last 12 hours): Intake & Output 11/06/15 11/07/15 11/07/15 18:59 06:59 18:59 Intake Total 800 900 800 Output Total 700 700 600 Balance 100 200 200 Intake: Tube Feeding 800 700 800 Other 200 Output: Urine 700 700 600 Urethral (Baker) 700 700 600 Other: # Bowel Movements 2 0 - Medications Medications: Current Medications Albuterol/Ipratropium (Duoneb 3 Mg/0.5 Mg (3 Ml) Ud) 3 ml INH RQ6 [facility] Last Admin: 11/07/15 13:35 Dose: 3 ml Aspirin (Aspirin) 325 mg PO DAILY [facility] Last Admin: 11/07/15 09:29 Dose: 325 mg Clopidogrel Bisulfate (Plavix) 75 mg PO DAILY [facility] Last Admin: 11/07/15 09:29 Dose: 75 mg Lisinopril (Zestril) 5 mg PO DAILY [facility] Last Admin: 11/07/15 09:29 Dose: 5 mg Phenytoin (Dilantin) 100 mg PEG TID [facility] Last Admin: 11/07/15 09:29 Dose: 100 mg Polyethylene Glycol (Miralax) 17 gm PEG BID [facility] Last Admin: 08/21/15 11:26 Dose: Not Given Assessment/Plan (1) Anoxic encephalopathy Current Visit: Yes Status: Acute Comment: Saturating well on trach collar with FiO2 40% 10/17: Weaned off vent, now satting well on trach collar (2) STEMI (ST elevation myocardial infarction) Current Visit: Yes Status: Acute Comment: cardiac stents on 06/13/15. Continue Lisinopril 5mg PO daily Continue Plavix 75mg PO daily Continue ASA 325mg PO daily (3) Respiratory failure Current Visit: Yes Status: Acute Comment: Satting well on trach collar with FiO2 40% on PS/CPAP CXR (10/20) - enlarged cardiomediastinum silhouette with tortuous aorta. Underlying adenopathy or alternative pathologies cannot be excluded. Tracheostomy tube. Mild bibasilar atelectasis. 10/20: Patient satting at 100% on trach collar 40% FiO2 Patient coughing with thick secretions Rhonchi on exam Mucomyst and Duonebs started on 10/19 10/17:Weaned off vent, now satting well on trach collar 10/16: patient on trach collar, tolerating well. 10/12--> cont vent mx as per Pulm, unable to wean 10/06: no rhonchi or rales auscultated. lasix 40mg IVP once given yesterday. CXR - patchy right basilar airspace opacity with granulomatous changes in the left upper lobe and pleural thickening Dr. Salgado (pul) on case - help very much appreciated (4) Seizures Current Visit: Yes Status: Acute Comment: 10/29: Continue monitoring for seizure. 09/01: dilantin level 5.7, continue current management. 08/30--> repeat Dilantin level in am, cont meds, SZ precaution Continue dilantin 100mg via PEG TID Continue to monitor for seizure activity (5) Prophylactic measure Current Visit: Yes Status: Acute Comment: Per social work, will continue searching for placement in [facility] area. Plavix 75mg through PEG, renewed 11/05. SCDs (6) Bed sore Current Visit: Yes Status: Acute Comment: 11/06: Visualized today. Continue wound care. 11/02: Continue wound care. Will check 1x a week. 10/23: Improving, continue wound care. 10/22: -wound care following patient 10/19: -examined today -continue treatment with Sensicare and Medihoney as per Wound Care 10/12--> cont LWC as per Plastic and Wound care team 10/10: Wound care recommendations: SensiCare to buttocks around ulcer, MediHoney to necrotic tissue, Position Q2 hours, Recall when necrotic tissue is soft/loose for debridement 10/09: sacral ulcer, stage [address] Dr. Panchal consulted, f/u recommendations 08/09- stage one ulcer, healed, per nursing. [facility] Attending/Attestation - Attestation I have personally seen and examined this patient.: Yes I have fully participated in the care of the patient.: Yes I have reviewed all pertinent clinical information: Yes
[2015-11-08] MEDS: Albuterol-Ipratrop 3 mg / 0.5 (3 ml) UD INH SCH ×3 (08:06→19:41)
[2015-11-08] MEDS: Phenytoin 100 mg/4 ml Oral Susp UD PEG SCH ×3 (09:40→17:24)
--- NOTE | 2015-11-08 15:17 | CP.PCM.PN ---
<Scout Marinelli - Last Filed: 11/08/15 15:16> Subjective - Subjective Subjective: Pt seen and examined at bedside this morning. Status unchanged, remains altered. ROS unattainable and not following commands in Mandarin. Family meeting planned next week. Review of Systems - Review of Systems Systems not reviewed;Unavailable: Altered Mental Status Objective - Vital Signs/Intake and Output Vital Signs (last 24 hours): Vital Signs - 24 hr 11/07/15 11/07/15 11/08/15 21:28 23:15 06:02 Temperature 98.1 F 98.5 F Pulse Rate 96 H 89 Respiratory 20 20 Rate Blood Pressure 183/84 H 142/82 136/82 O2 Sat by Pulse 97 98 Oximetry 11/08/15 11/08/15 10:27 14:18 Temperature 98.2 F Pulse Rate 89 100 H Respiratory 20 Rate Blood Pressure O2 Sat by Pulse 96 Oximetry Intake and Output (last 12 hours): Intake & Output 11/07/15 11/08/15 11/08/15 18:59 06:59 18:59 Intake Total 800 700 Output Total 600 900 Balance 200 -200 Intake: Tube Feeding 800 700 Output: Urine 600 900 Urethral (Baker) 600 900 - Medications Medications: Current Medications Albuterol/Ipratropium (Duoneb 3 Mg/0.5 Mg (3 Ml) Ud) 3 ml INH RQ6 [facility] Last Admin: 11/08/15 13:18 Dose: 3 ml Aspirin (Aspirin) 325 mg PO DAILY [facility] Last Admin: 11/08/15 09:40 Dose: 325 mg Clopidogrel Bisulfate (Plavix) 75 mg PO DAILY [facility] Last Admin: 11/08/15 09:40 Dose: 75 mg Lisinopril (Zestril) 5 mg PO DAILY [facility] Last Admin: 11/08/15 09:40 Dose: 5 mg Phenytoin (Dilantin) 100 mg PEG TID [facility] Last Admin: 11/08/15 13:53 Dose: 100 mg Polyethylene Glycol (Miralax) 17 gm PEG BID [facility] Last Admin: 08/21/15 11:26 Dose: Not Given - Constitutional Appears: Non-toxic, No Acute Distress - Head Exam Head Exam: NORMAL INSPECTION, NORMOCEPHALIC - Eye Exam Eye Exam: Normal appearance Pupil Exam: NORMAL ACCOMODATION - Respiratory Exam Respiratory Exam: Rales, NORMAL BREATHING PATTERN - Cardiovascular Exam Cardiovascular Exam: REGULAR RHYTHM, +S1, +S2 - GI/Abdominal Exam GI & Abdominal Exam: Normal Bowel Sounds, Soft - Neurological Exam Neurological exam: Altered - Skin Skin Exam: Normal Color Assessment/Plan (1) Bed sore Current Visit: Yes Status: Acute Comment: 11/06: Visualized today. Continue wound care. 11/02: Continue wound care. Will check 1x a week. 10/23: Improving, continue wound care. 10/22: -wound care following patient 10/19: -examined today -continue treatment with [facility] and [facility] as per Wound Care 10/12--> cont LWC as per Plastic and Wound care team 10/10: Wound care recommendations: [facility] to buttocks around ulcer, MediHoney to necrotic tissue, Position Q2 hours, Recall when necrotic tissue is soft/loose for debridement 10/09: sacral ulcer, stage [address] Panchal consulted, f/u recommendations 08/09- stage one ulcer, healed, per nursing. continue repositioning of patient q2H dolphin mattress (2) Anoxic encephalopathy Current Visit: Yes Status: Acute Comment: Saturating well on trach collar with FiO2 40% 10/17: Weaned off vent, now satting well on trach collar (3) Leukocytosis Current Visit: Yes Status: Acute Comment: 10/26: Continue monitoring. F/U Thursday labs. 10/22: -WBC 10.6 WNL 10/18: -f/u blood work on 10/22 10/14: -Resolved, WBC=10.5 today 10/13: -last WBC on 10/11 was 13.1 -patient afebrile but does have sacral bed sore -consider CXR if pt becomes febrile -f/u WBC today 09/20: WBC 10.7; will f/u CBC on 09/25: WBC increased from to 17.2. replace baker catheter and f/u urine culture , urinalysis. f/u CXR in AM CXR - no active disease Monitor temperature Afebrile IV Cefepime 1gm q12h started 07/21 Monitor (4) Seizures Current Visit: Yes Status: Acute Comment: 10/29: Continue monitoring for seizure. 09/01: dilantin level 5.7, continue current management. 08/30--> repeat Dilantin level in am, cont meds, SZ precaution Continue dilantin 100mg via PEG TID Continue to monitor for seizure activity (5) Respiratory failure Current Visit: Yes Status: Acute Comment: Satting well on trach collar with FiO2 40% on PS/CPAP CXR (10/20) - enlarged cardiomediastinum silhouette with tortuous aorta. Underlying adenopathy or alternative pathologies cannot be excluded. Tracheostomy tube. Mild bibasilar atelectasis. 10/20: Patient satting at 100% on trach collar 40% FiO2 Patient coughing with thick secretions Rhonchi on exam Mucomyst and Duonebs started on 10/19 10/17:Weaned off vent, now satting well on trach collar 10/16: patient on trach collar, tolerating well. 10/12--> cont vent mx as per Pulm, unable to wean 10/06: no rhonchi or rales auscultated. lasix 40mg IVP once given yesterday. CXR - patchy right basilar airspace opacity with granulomatous changes in the left upper lobe and pleural thickening Dr. Salgado (pul) on case - help very much appreciated (6) Prophylactic measure Current Visit: Yes Status: Acute Comment: Per social work, will continue searching for placement in [facility] area. Plavix 75mg through PEG, renewed 11/05. SCDs <Rashel Rodrigues - Last Filed: 11/08/15 17:13> Objective - Vital Signs/Intake and Output Vital Signs (last 24 hours): Vital Signs - 24 hr 11/07/15 11/07/15 11/08/15 21:28 23:15 06:02 Temperature 98.1 F 98.5 F Pulse Rate 96 H 89 Respiratory 20 20 Rate Blood Pressure 183/84 H 142/82 136/82 O2 Sat by Pulse 97 98 Oximetry 11/08/15 11/08/15 10:27 14:18 Temperature 98.2 F Pulse Rate 89 100 H Respiratory 20 Rate Blood Pressure O2 Sat by Pulse 96 Oximetry Intake and Output (last 12 hours): Intake & Output 11/07/15 11/08/15 11/08/15 18:59 06:59 18:59 Intake Total 800 700 Output Total 600 900 Balance 200 -200 Intake: Tube Feeding 800 700 Output: Urine 600 900 Urethral (Baker) 600 900 - Medications Medications: Current Medications Albuterol/Ipratropium (Duoneb 3 Mg/0.5 Mg (3 Ml) Ud) 3 ml INH RQ6 [facility] Last Admin: 11/08/15 13:18 Dose: 3 ml Aspirin (Aspirin) 325 mg PO DAILY [facility] Last Admin: 11/08/15 09:40 Dose: 325 mg Clopidogrel Bisulfate (Plavix) 75 mg PO DAILY [facility] Last Admin: 11/08/15 09:40 Dose: 75 mg Lisinopril (Zestril) 5 mg PO DAILY [facility] Last Admin: 11/08/15 09:40 Dose: 5 mg Phenytoin (Dilantin) 100 mg PEG TID [facility] Last Admin: 11/08/15 13:53 Dose: 100 mg Polyethylene Glycol (Miralax) 17 gm PEG BID [facility] Last Admin: 08/21/15 11:26 Dose: Not Given Assessment/Plan (1) Anoxic encephalopathy Current Visit: Yes Status: Acute Comment: Saturating well on trach collar with FiO2 40% 10/17: Weaned off vent, now satting well on trach collar (2) STEMI (ST elevation myocardial infarction) Current Visit: Yes Status: Acute Comment: cardiac stents on 06/13/15. Continue Lisinopril 5mg PO daily Continue Plavix 75mg PO daily Continue ASA 325mg PO daily (3) Respiratory failure Current Visit: Yes Status: Acute Comment: Satting well on trach collar with FiO2 40% on PS/CPAP CXR (10/20) - enlarged cardiomediastinum silhouette with tortuous aorta. Underlying adenopathy or alternative pathologies cannot be excluded. Tracheostomy tube. Mild bibasilar atelectasis. 10/20: Patient satting at 100% on trach collar 40% FiO2 Patient coughing with thick secretions Rhonchi on exam Mucomyst and Duonebs started on 10/19 10/17:Weaned off vent, now satting well on trach collar 10/16: patient on trach collar, tolerating well. 10/12--> cont vent mx as per Pulm, unable to wean 10/06: no rhonchi or rales auscultated. lasix 40mg IVP once given yesterday. CXR - patchy right basilar airspace opacity with granulomatous changes in the left upper lobe and pleural thickening Dr. Salgado (pulm) on case - help very much appreciated (4) Seizures Current Visit: Yes Status: Acute Comment: 10/29: Continue monitoring for seizure. 09/01: dilantin level 5.7, continue current management. 08/30--> repeat Dilantin level in am, cont meds, SZ precaution Continue dilantin 100mg via PEG TID Continue to monitor for seizure activity (5) Prophylactic measure Current Visit: Yes Status: Acute Comment: Per social work, will continue searching for placement in [facility] area. Plavix 75mg through PEG, renewed 11/05. SCDs (6) Bed sore Current Visit: Yes Status: Acute Comment: 11/06: Visualized today. Continue wound care. 11/02: Continue wound care. Will check 1x a week. 10/23: Improving, continue wound care. 10/22: -wound care following patient 10/19: -examined today -continue treatment with [facility] and [facility] as per Wound Care 10/12--> cont LWC as per Plastic and Wound care team 10/10: Wound care recommendations: [facility] to buttocks around ulcer, MediHoney to necrotic tissue, Position Q2 hours, Recall when necrotic tissue is soft/loose for debridement 10/09: sacral ulcer, stage [address]. Panchal consulted, f/u recommendations 08/09- stage one ulcer, healed, per nursing. continue repositioning of patient q2H delores sibley Attending/Attestation - Attestation I have personally seen and examined this patient.: Yes I have fully participated in the care of the patient.: Yes I have reviewed all pertinent clinical information: Yes Notes (Text): 11/08/15 17:12 Patient was seen and examined during the round with residents. pt is awake, seems to understand when talk in azeri. cont Trach care, Wound care, nursin care. DC Planning--- awaiting placement AM labs...
[2015-11-09] MEDS: Albuterol-Ipratrop 3 mg / 0.5 (3 ml) UD INH SCH ×4 (01:01→19:29)
[2015-11-09] MEDS: Phenytoin 100 mg/4 ml Oral Susp UD PEG SCH ×3 (10:00→17:02)
--- NOTE | 2015-11-09 12:10 | CP.PCM.PN ---
Subjective - Subjective Subjective: Pt seen and examined at bedside this morning. Pt awake but not oriented, unresponsive to commands. ROS unattainable. Family at bedside. Review of Systems - Review of Systems Systems not reviewed;Unavailable: Altered Mental Status Objective - Vital Signs/Intake and Output Vital Signs (last 24 hours): Vital Signs - 24 hr 11/08/15 11/08/15 11/09/15 14:18 21:20 05:47 Temperature 98.2 F 98.0 F 98.0 F Pulse Rate 100 H 89 92 H Respiratory 20 18 20 Rate Blood Pressure 112/78 120/78 O2 Sat by Pulse 96 99 100 Oximetry Intake and Output (last 12 hours): Intake & Output 11/08/15 11/09/15 11/09/15 18:59 06:59 18:59 Intake Total 700 Output Total 700 Balance 0 Intake: Tube Feeding 700 Output: Urine 700 Urethral (Baker) 700 Other: # Bowel Movements 2 - Medications Medications: Current Medications Albuterol/Ipratropium (Duoneb 3 Mg/0.5 Mg (3 Ml) Ud) 3 ml INH RQ6 [facility] Last Admin: 11/09/15 07:26 Dose: 3 ml Aspirin (Aspirin) 325 mg PO DAILY [facility] Last Admin: 11/08/15 09:40 Dose: 325 mg Clopidogrel Bisulfate (Plavix) 75 mg PO DAILY [facility] Last Admin: 11/08/15 09:40 Dose: 75 mg Lisinopril (Zestril) 5 mg PO DAILY [facility] Last Admin: 11/08/15 09:40 Dose: 5 mg Phenytoin (Dilantin) 100 mg PEG TID [facility] Last Admin: 11/08/15 17:24 Dose: 100 mg Polyethylene Glycol (Miralax) 17 gm PEG BID [facility] Last Admin: 08/21/15 11:26 Dose: Not Given - Constitutional Appears: Non-toxic, No Acute Distress - Head Exam Head Exam: ATRAUMATIC, NORMAL INSPECTION, NORMOCEPHALIC - Eye Exam Eye Exam: Normal appearance, PERRL Pupil Exam: NORMAL ACCOMODATION - Respiratory Exam Respiratory Exam: Rales, NORMAL BREATHING PATTERN - Cardiovascular Exam Cardiovascular Exam: REGULAR RHYTHM, +S1, +S2. absent: Gallop, Rubs - GI/Abdominal Exam GI & Abdominal Exam: Normal Bowel Sounds - Neurological Exam Neurological exam: Altered Assessment/Plan (1) Bed sore Current Visit: Yes Status: Acute Comment: 11/09: Continue wound care. 11/06: Visualized today. Continue wound care. 11/02: Continue wound care. Will check 1x a week. 10/23: Improving, continue wound care. 10/22: -wound care following patient 10/19: -examined today -continue treatment with [facility] and [facility] as per Wound Care 10/12--> cont LWC as per Plastic and Wound care team 10/10: Wound care recommendations: [facility] to buttocks around ulcer, MediHoney to necrotic tissue, Position Q2 hours, Recall when necrotic tissue is soft/loose for debridement 10/09: sacral ulcer, stage [address] Panchal consulted, f/u recommendations 08/09- stage one ulcer, healed, per nursing. continue repositioning of patient q2H dolphin mattress (2) Anoxic encephalopathy Current Visit: Yes Status: Acute Comment: Saturating well on trach collar with FiO2 40% 10/17: Weaned off vent, now satting well on trach collar (3) Leukocytosis Current Visit: Yes Status: Acute Comment: 10/26: Continue monitoring. F/U Thursday labs. 10/22: -WBC 10.6 WNL 10/18: -f/u blood work on 10/22 10/14: -Resolved, WBC=10.5 today 10/13: -last WBC on 10/11 was 13.1 -patient afebrile but does have sacral bed sore -consider CXR if pt becomes febrile -f/u WBC today 09/20: WBC 10.7; will f/u CBC on 09/25: WBC increased from to 17.2. replace baker catheter and f/u urine culture , urinalysis. f/u CXR in AM CXR - no active disease Monitor temperature Afebrile IV Cefepime 1gm q12h started 07/21 Monitor (4) Seizures Current Visit: Yes Status: Acute Comment: 10/29: Continue monitoring for seizure. 09/01: dilantin level 5.7, continue current management. 08/30--> repeat Dilantin level in am, cont meds, SZ precaution Continue dilantin 100mg via PEG TID Continue to monitor for seizure activity (5) Respiratory failure Current Visit: Yes Status: Acute Comment: Satting well on trach collar with FiO2 40% on PS/CPAP CXR (10/20) - enlarged cardiomediastinum silhouette with tortuous aorta. Underlying adenopathy or alternative pathologies cannot be excluded. Tracheostomy tube. Mild bibasilar atelectasis. 10/20: Patient satting at 100% on trach collar 40% FiO2 Patient coughing with thick secretions Rhonchi on exam Mucomyst and Duonebs started on 10/19 10/17:Weaned off vent, now satting well on trach collar 10/16: patient on trach collar, tolerating well. 10/12--> cont vent mx as per Pulm, unable to wean 10/06: no rhonchi or rales auscultated. lasix 40mg IVP once given yesterday. CXR - patchy right basilar airspace opacity with granulomatous changes in the left upper lobe and pleural thickening Dr. Salgado (pul) on case - help very much appreciated (6) Prophylactic measure Current Visit: Yes Status: Acute Comment: Per social work, will continue searching for placement in [facility] area. Plavix 75mg through PEG, renewed 11/05. SCDs
--- NOTE | 2015-11-09 21:43 | CP.PCM.PN ---
Subjective - Subjective Subjective: Medical Attending Covering Dr. Rodrigues: Patient seen and examined by me. Patient awake. at bedside. Family meeting scheduled for 11/12/15. Patient follows voice with eyes at times. does not follow commands. no purposeful movement. patient aphasic. Unable to obtain review of systems from patient. Patient afebrile. Objective - Vital Signs/Intake and Output Vital Signs (last 24 hours): Vital Signs - 24 hr 11/09/15 11/09/15 05:47 13:56 Temperature 98.0 F 97.8 F Pulse Rate 92 H 94 H Respiratory 20 18 Rate Blood Pressure 120/78 128/73 O2 Sat by Pulse 100 98 Oximetry Intake and Output (last 12 hours): Intake & Output 11/09/15 11/09/15 11/10/15 06:59 18:59 06:59 Intake Total 700 Output Total 700 400 Balance 0 -400 Intake: Tube Feeding 700 Output: Urine 700 400 Urethral (Yoo) 700 400 Other: # Bowel Movements 2 1 - Medications Medications: Current Medications Albuterol/Ipratropium (Duoneb 3 Mg/0.5 Mg (3 Ml) Ud) 3 ml INH RQ6 [facility] Last Admin: 11/09/15 19:29 Dose: 3 ml Aspirin (Aspirin) 325 mg PO DAILY [facility] Last Admin: 11/09/15 12:31 Dose: 325 mg Clopidogrel Bisulfate (Plavix) 75 mg PO DAILY [facility] Last Admin: 11/09/15 10:00 Dose: 75 mg Lisinopril (Zestril) 5 mg PO DAILY [facility] Last Admin: 11/09/15 10:15 Dose: 5 mg Phenytoin (Dilantin) 100 mg PEG TID [facility] Last Admin: 11/09/15 17:02 Dose: 100 mg Polyethylene Glycol (Miralax) 17 gm PEG BID [facility] Last Admin: 08/21/15 11:26 Dose: Not Given - Constitutional Appears: No Acute Distress - Head Exam Head Exam: ATRAUMATIC, NORMOCEPHALIC - Eye Exam Eye Exam: absent: Scleral icterus - ENT Exam ENT Exam: Mucous Membranes Moist - Neck Exam Additional comments: trach in place - Respiratory Exam Respiratory Exam: absent: Rales, Wheezes Additional comments: coarse breath sounds - Cardiovascular Exam Cardiovascular Exam: REGULAR RHYTHM, +S1, +S2. absent: Diastolic murmur, Gallop , Rubs, Systolic Murmur - GI/Abdominal Exam GI & Abdominal Exam: Normal Bowel Sounds, Soft. absent: Distended Additional comments: PEG in place - Extremities Exam Extremities exam: pedal pulses present Additional comments: heel supports and scd's in place - Neurological Exam Additional comments: patient awake does follow voice with eyes at times patient with no purposeful movements aphasic, does not follow commands - Skin Skin Exam: Dry, Warm Assessment/Plan (1) Leukocytosis Current Visit: Yes Status: Acute Comment: F/U labs 11/12/15 Patient afebrile Monitor (2) Respiratory failure Current Visit: Yes Status: Acute Comment: off vent s/p trach and PEG pending placement (3) Anoxic encephalopathy Current Visit: Yes Status: Acute Comment: Off vent patient with trach pending placement s/p PEG (4) Cardiac arrest Current Visit: Yes Status: Acute Comment: s/p V-Tach arrest Continue ASA 325mg PO daily Continue Plavix 75mg PO daily Continue Lisinopril 5mg PO daily s/p trach and PEG (5) CAD (coronary artery disease) Current Visit: Yes Status: Acute Comment: s/p STEMI and stent placement Continue ASA 325mg PO daily Continue Lisinopril 5mg PO daily Continue Plavix 75mg PO daily (6) Seizures Current Visit: Yes Status: Acute Comment: COntinue dilantin 100mg via PEG TID (7) Prophylactic measure Current Visit: Yes Status: Acute Comment: Per social work, will continue searching for placement in [facility] area. Plavix 75mg through PEG SCDs - Date & Time Date: 11/09/15 Attending/Attestation - Attestation I have personally seen and examined this patient.: Yes I have fully participated in the care of the patient.: Yes I have reviewed all pertinent clinical information: Yes Notes (Text): Medical Attending Covering Dr. Rodrigues
[2015-11-10] MEDS: Albuterol-Ipratrop 3 mg / 0.5 (3 ml) UD INH SCH ×4 (01:24→19:05)
--- NOTE | 2015-11-10 05:22 | CP.PCM.PN ---
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 Unable to obtain history from patient. Objective - Vital Signs/Intake and Output Vital Signs (last 24 hours): Vital Signs - 24 hr 11/09/15 11/09/15 11/09/15 05:47 13:56 21:30 Temperature 98.0 F 97.8 F 99 F Pulse Rate 92 H 94 H 92 H Respiratory 20 18 18 Rate Blood Pressure 120/78 128/73 148/92 H O2 Sat by Pulse 100 98 98 Oximetry Intake and Output (last 12 hours): Intake & Output 11/09/15 11/09/15 11/10/15 06:59 18:59 06:59 Intake Total 700 Output Total 700 400 300 Balance 0 -400 -300 Intake: Tube Feeding 700 Output: Urine 700 400 300 Urethral (Yoo) 700 400 300 Other: # Bowel Movements 2 1 - Medications Medications: Current Medications Albuterol/Ipratropium (Duoneb 3 Mg/0.5 Mg (3 Ml) Ud) 3 ml INH RQ6 [facility] Last Admin: 11/10/15 01:24 Dose: 3 ml Aspirin (Aspirin) 325 mg PO DAILY [facility] Last Admin: 11/09/15 12:31 Dose: 325 mg Clopidogrel Bisulfate (Plavix) 75 mg PO DAILY [facility] Last Admin: 11/09/15 10:00 Dose: 75 mg Lisinopril (Zestril) 5 mg PO DAILY [facility] Last Admin: 11/09/15 10:15 Dose: 5 mg Phenytoin (Dilantin) 100 mg PEG TID [facility] Last Admin: 11/09/15 17:02 Dose: 100 mg Polyethylene Glycol (Miralax) 17 gm PEG BID [facility] Last Admin: 08/21/15 11:26 Dose: Not Given - Constitutional Appears: Chronically Ill - Head Exam Head Exam: NORMAL INSPECTION - Eye Exam Eye Exam: EOMI, Normal appearance Pupil Exam: NORMAL ACCOMODATION - ENT Exam ENT Exam: Mucous Membranes Dry - Respiratory Exam Respiratory Exam: Rhonchi, NORMAL BREATHING PATTERN. absent: Clear to PA & Lateral, Wheezes - Cardiovascular Exam Cardiovascular Exam: REGULAR RHYTHM, RRR, +S1, +S2. absent: Gallop, Rubs - GI/Abdominal Exam GI & Abdominal Exam: Normal Bowel Sounds - Extremities Exam Extremities exam: absent: pedal edema - Skin Skin Exam: Dry, Intact, Normal Color Assessment/Plan (1) Anoxic encephalopathy Current Visit: Yes Status: Acute Comment: Off vent patient with trach pending placement s/p PEG (2) CAD (coronary artery disease) Current Visit: Yes Status: Acute Comment: s/p STEMI and stent placement Continue ASA 325mg PO daily Continue Lisinopril 5mg PO daily Continue Plavix 75mg PO daily (3) STEMI (ST elevation myocardial infarction) Current Visit: Yes Status: Acute Comment: cardiac stents on 06/13/15. Continue Lisinopril 5mg PO daily Continue Plavix 75mg PO daily Continue ASA 325mg PO daily (4) Seizures Current Visit: Yes Status: Acute Comment: COntinue dilantin 100mg via PEG TID (5) Prophylactic measure Current Visit: Yes Status: Acute Comment: Per social work, will continue searching for placement in [facility] area. Plavix 75mg through PEG SCDs <Donnell Ying - Last Filed: 11/10/15 15:34> Objective - Vital Signs/Intake and Output Vital Signs (last 24 hours): Vital Signs - 24 hr 11/09/15 11/10/15 11/10/15 21:30 06:29 14:45 Temperature 99 F 98 F 98.3 F Pulse Rate 92 H 101 H 87 Respiratory 18 21 20 Rate Blood Pressure 148/92 H 142/88 120/71 O2 Sat by Pulse 98 95 99 Oximetry Intake and Output (last 12 hours): Intake & Output 11/09/15 11/10/15 11/10/15 18:59 06:59 18:59 Output Total 400 600 300 Balance -400 -600 -300 Output: Urine 400 600 300 Urethral (Yoo) 400 600 300 Other: # Bowel Movements 1 - Medications Medications: Current Medications Albuterol/Ipratropium (Duoneb 3 Mg/0.5 Mg (3 Ml) Ud) 3 ml INH RQ6 [facility] Last Admin: 11/10/15 13:48 Dose: 3 ml Aspirin (Aspirin) 325 mg PO DAILY [facility] Last Admin: 11/10/15 09:50 Dose: 325 mg Clopidogrel Bisulfate (Plavix) 75 mg PO DAILY [facility] Last Admin: 11/10/15 09:50 Dose: 75 mg Lisinopril (Zestril) 5 mg PO DAILY [facility] Last Admin: 11/10/15 09:50 Dose: 5 mg Phenytoin (Dilantin) 100 mg PEG TID [facility] Last Admin: 11/10/15 14:00 Dose: 100 mg Polyethylene Glycol (Miralax) 17 gm PEG BID [facility] Last Admin: 08/21/15 11:26 Dose: Not Given Attending/Attestation - Attestation I have personally seen and examined this patient.: Yes I have fully participated in the care of the patient.: Yes I have reviewed all pertinent clinical information: Yes Notes (Text): 11/10/15 15:34 No change in clinical condition Continue current management
[2015-11-10] MEDS: Phenytoin 100 mg/4 ml Oral Susp UD PEG SCH ×3 (09:50→17:40)
[2015-11-11] MEDS: Albuterol-Ipratrop 3 mg / 0.5 (3 ml) UD INH SCH ×3 (01:10→13:31)
--- NOTE | 2015-11-11 01:10 | CP.PCM.PN ---
<Joel Lin H - Last Filed: 11/11/15 05:33> Subjective - Subjective Subjective: Screen Operator Note: Patient examined in room. Unable to obtain history. Review of Systems - Review of Systems All systems: reviewed and no additional remarkable complaints except Objective - Vital Signs/Intake and Output Vital Signs (last 24 hours): Vital Signs - 24 hr 11/10/15 11/10/15 11/10/15 06:29 14:45 21:50 Temperature 98 F 98.3 F 98.4 F Pulse Rate 101 H 87 89 Respiratory 21 20 18 Rate Blood Pressure 142/88 120/71 119/78 O2 Sat by Pulse 95 99 98 Oximetry Intake and Output (last 12 hours): Intake & Output 11/10/15 11/10/15 11/11/15 06:59 18:59 06:59 Output Total 600 300 600 Balance -600 -300 -600 Output: Urine 600 300 600 Urethral (Yoo) 600 300 600 - Medications Medications: Current Medications Albuterol/Ipratropium (Duoneb 3 Mg/0.5 Mg (3 Ml) Ud) 3 ml INH RQ6 [facility] Last Admin: 11/10/15 19:05 Dose: 3 ml Aspirin (Aspirin) 325 mg PO DAILY [facility] Last Admin: 11/10/15 09:50 Dose: 325 mg Clopidogrel Bisulfate (Plavix) 75 mg PO DAILY [facility] Last Admin: 11/10/15 09:50 Dose: 75 mg Lisinopril (Zestril) 5 mg PO DAILY [facility] Last Admin: 11/10/15 09:50 Dose: 5 mg Phenytoin (Dilantin) 100 mg PEG TID [facility] Last Admin: 11/10/15 17:40 Dose: 100 mg Polyethylene Glycol (Miralax) 17 gm PEG BID [facility] Last Admin: 08/21/15 11:26 Dose: Not Given - Constitutional Appears: Chronically Ill - Head Exam Head Exam: NORMAL INSPECTION - Eye Exam Eye Exam: Normal appearance - ENT Exam ENT Exam: Mucous Membranes Dry - Respiratory Exam Respiratory Exam: Clear to PA & Lateral, NORMAL BREATHING PATTERN. absent: Wheezes - Cardiovascular Exam Cardiovascular Exam: REGULAR RHYTHM, RRR, +S1, +S2. absent: Gallop, Rubs - GI/Abdominal Exam GI & Abdominal Exam: Normal Bowel Sounds, Soft - Skin Skin Exam: Dry, Normal Color, Warm Assessment/Plan (1) Anoxic encephalopathy Current Visit: Yes Status: Acute Comment: Off vent patient with trach pending placement s/p PEG (2) CAD (coronary artery disease) Current Visit: Yes Status: Acute Comment: s/p STEMI and stent placement Continue ASA 325mg PO daily Continue Lisinopril 5mg PO daily Continue Plavix 75mg PO daily (3) STEMI (ST elevation myocardial infarction) Current Visit: Yes Status: Acute Comment: cardiac stents on 06/13/15. Continue Lisinopril 5mg PO daily Continue Plavix 75mg PO daily Continue ASA 325mg PO daily (4) Seizures Current Visit: Yes Status: Acute Comment: COntinue dilantin 100mg via PEG TID (5) Prophylactic measure Current Visit: Yes Status: Acute Comment: Per social work, will continue searching for placement in [facility] area. Plavix 75mg through PEG [facility] <Donnell Ying M - Last Filed: 11/11/15 14:47> Objective - Vital Signs/Intake and Output Vital Signs (last 24 hours): Vital Signs - 24 hr 11/10/15 11/11/15 21:50 06:17 Temperature 98.4 F 97.8 F Pulse Rate 89 94 H Respiratory 18 18 Rate Blood Pressure 119/78 121/70 O2 Sat by Pulse 98 100 Oximetry Intake and Output (last 12 hours): Intake & Output 11/10/15 11/11/15 11/11/15 18:59 06:59 18:59 Intake Total 700 Output Total 300 900 Balance -300 -900 700 Intake: Tube Feeding 700 Output: Urine 300 900 Urethral (Yoo) 300 900 - Medications Medications: Current Medications Albuterol/Ipratropium (Duoneb 3 Mg/0.5 Mg (3 Ml) Ud) 3 ml INH RQ6 [facility] Last Admin: 11/11/15 13:31 Dose: 3 ml Aspirin (Aspirin) 325 mg PO DAILY [facility] Last Admin: 11/11/15 10:10 Dose: 325 mg Clopidogrel Bisulfate (Plavix) 75 mg PO DAILY [facility] Last Admin: 11/11/15 10:10 Dose: 75 mg Lisinopril (Zestril) 5 mg PO DAILY [facility] Last Admin: 11/11/15 10:10 Dose: 5 mg Phenytoin (Dilantin) 100 mg PEG TID [facility] Last Admin: 11/11/15 14:35 Dose: 100 mg Polyethylene Glycol (Miralax) 17 gm PEG BID [facility] Last Admin: 08/21/15 11:26 Dose: Not Given Attending/Attestation - Attestation I have personally seen and examined this patient.: Yes I have fully participated in the care of the patient.: Yes I have reviewed all pertinent clinical information: Yes Notes (Text): 11/11/15 14:47 Patient seen and examined at bedside. No change in clinical condition. We will continue current management.
[2015-11-11] MEDS: Phenytoin 100 mg/4 ml Oral Susp UD PEG SCH ×3 (10:10→17:22)
[2015-11-12] MEDS: Albuterol-Ipratrop 3 mg / 0.5 (3 ml) UD INH SCH ×4 (01:53→20:10)
[2015-11-12 07:59] LABS: BASO # 0.1 K/uL (0.0-0.2)
[2015-11-12 08:08] LABS: HEMOGLOBIN 12.9 g/dL (12.0-18.0); MEAN CELL VOLUME 92.8 fL (80.0-94.0); MEAN CORPUSCULAR HEMOGLOBIN 30.9 pg (27.0-31.0); MEAN CORPUSCULAR HGB CONC 33.3 g/dL (33.0-37.0); MEAN PLATELET VOLUME 8.5 fL (7.2-11.7); RBC 4.16 Mil/uL (4.40-5.90); RED CELL DISTRIBUTION WIDTH 14.5 % (11.5-14.5)
[2015-11-12 08:14] LABS: BASO % 0.5 % (0.0-2.0); EOS % 8.3 % (0.0-4.0); LYMPH # 1.6 K/uL (1.0-4.3); LYMPH % 10.4 % (20.0-40.0); MONO % 7.8 % (0.0-10.0); NRBC % 0.1 % (0.0-2.0)
[2015-11-12 08:15] LABS: ALBUMIN 3.7 g/dL (3.5-5.0); EOS # 1.2 K/uL (0.0-0.7); MONO # 1.2 K/uL (0.0-0.8)
[2015-11-12 08:18] LABS: ALB/GLOB RATIO 0.9 (1.0-2.1); AST/SGOT 30 U/L (17-59); GFR NON-AFRICAN AMERICAN > 60
[2015-11-12 08:19] LABS: ALT/SGPT 51 U/L (21-72); BLOOD UREA NITROGEN 27 mg/dL (9-20); CALCIUM 8.8 mg/dL (8.4-10.2)
[2015-11-12] MEDS: Phenytoin 100 mg/4 ml Oral Susp UD PEG SCH ×3 (11:47→18:59)
--- NOTE | 2015-11-12 13:12 | CP.PCM.PN ---
<Scout Marinelli - Last Filed: 11/12/15 13:08> Subjective - Subjective Subjective: Pt seen and examined at bedside this morning. No changes in mental status, ROS unattainable. Per social work family meeting rescheduled for tomorrow. Review of Systems - Review of Systems Systems not reviewed;Unavailable: Altered Mental Status Objective - Vital Signs/Intake and Output Vital Signs (last 24 hours): Vital Signs - 24 hr 11/11/15 11/11/15 11/12/15 14:00 21:54 06:00 Temperature 98.1 F 99.0 F 98 F Pulse Rate 84 87 90 Respiratory 20 18 19 Rate Blood Pressure 123/81 132/76 126/62 O2 Sat by Pulse 98 98 100 Oximetry Intake and Output (last 12 hours): Intake & Output 11/11/15 11/12/15 11/12/15 18:59 06:59 18:59 Intake Total 700 700 Output Total 300 200 Balance 400 500 Intake: Tube Feeding 700 700 Output: Urine 300 200 Urethral (Yoo) 300 200 Other: # Bowel Movements 1 1 - Medications Medications: Current Medications Albuterol/Ipratropium (Duoneb 3 Mg/0.5 Mg (3 Ml) Ud) 3 ml INH RQ6 [facility] Last Admin: 11/12/15 07:56 Dose: 3 ml Aspirin (Aspirin) 325 mg PO DAILY [facility] Last Admin: 11/12/15 11:46 Dose: 325 mg Clopidogrel Bisulfate (Plavix) 75 mg PO DAILY [facility] Last Admin: 11/12/15 11:46 Dose: 75 mg Lisinopril (Zestril) 5 mg PO DAILY [facility] Last Admin: 11/12/15 11:47 Dose: 5 mg Phenytoin (Dilantin) 100 mg PEG TID [facility] Last Admin: 11/12/15 11:47 Dose: 100 mg Polyethylene Glycol (Miralax) 17 gm PEG BID [facility] Last Admin: 08/21/15 11:26 Dose: Not Given - Labs Labs (last 24 hours): Laboratory Results - last 24 hr 11/12/15 07:30 WBC 15.0 H RBC 4.16 L Hgb 12.9 Hct 38.6 MCV 92.8 MCH 30.9 MCHC 33.3 RDW 14.5 Plt Count 335 MPV 8.5 Neut % (Auto) 73.0 Lymph % (Auto) 10.4 L [place] % (Auto) 7.8 Eos % (Auto) 8.3 H Baso % (Auto) 0.5 Neut # 11.0 H Lymph # 1.6 [place] # 1.2 H Eos # 1.2 H Baso # 0.1 Sodium 142 Potassium 4.5 Chloride 104 Carbon Dioxide 27 Anion Gap 15 BUN 27 H Creatinine 0.4 L Est GFR ( Amer) > 60 Est GFR (Non-Af Amer) > 60 Random Glucose 141 H Calcium 8.8 Phosphorus 3.9 Magnesium 2.3 Total Bilirubin 0.5 AST 30 ALT 51 Alkaline Phosphatase 126 Total Protein 7.8 Albumin 3.7 Globulin 4.0 H Albumin/Globulin Ratio 0.9 L - Constitutional Appears: Non-toxic, No Acute Distress - Head Exam Head Exam: NORMAL INSPECTION, NORMOCEPHALIC - Eye Exam Eye Exam: Normal appearance Pupil Exam: NORMAL ACCOMODATION - Respiratory Exam Respiratory Exam: Clear to PA & Lateral, NORMAL BREATHING PATTERN - Cardiovascular Exam Cardiovascular Exam: REGULAR RHYTHM, +S1, +S2 - GI/Abdominal Exam GI & Abdominal Exam: Normal Bowel Sounds, Soft - Neurological Exam Neurological exam: Altered - Skin Skin Exam: Normal Color Assessment/Plan (1) Bed sore Current Visit: Yes Status: Acute Comment: 11/09: Continue wound care. 11/06: Visualized today. Continue wound care. 11/02: Continue wound care. Will check 1x a week. 10/23: Improving, continue wound care. 10/22: -wound care following patient 10/19: -examined today -continue treatment with Sensicare and Medihoney as per Wound Care 10/12--> cont LWC as per Plastic and Wound care team 10/10: Wound care recommendations: SensiCare to buttocks around ulcer, MediHoney to necrotic tissue, Position Q2 hours, Recall when necrotic tissue is soft/loose for debridement 10/09: sacral ulcer, stage [address] Dr. Panchal consulted, f/u recommendations 08/09- stage one ulcer, healed, per nursing. continue repositioning of patient q2H dolphin mattress (2) Anoxic encephalopathy Current Visit: Yes Status: Acute Comment: Off vent patient with trach pending placement s/p PEG (3) Leukocytosis Current Visit: Yes Status: Acute Comment: F/U labs 11/19/15 Patient afebrile Monitor (4) Seizures Current Visit: Yes Status: Acute Comment: COntinue dilantin 100mg via PEG TID (5) Respiratory failure Current Visit: Yes Status: Acute Comment: off vent s/p trach and PEG pending placement (6) Prophylactic measure Current Visit: Yes Status: Acute Comment: Per social work, will continue searching for placement in [facility] area. Plavix 75mg through PEG [facility] <Donnell Ying M - Last Filed: 11/12/15 15:32> Objective - Vital Signs/Intake and Output Vital Signs (last 24 hours): Vital Signs - 24 hr 11/11/15 11/12/15 21:54 06:00 Temperature 99.0 F 98 F Pulse Rate 87 90 Respiratory 18 19 Rate Blood Pressure 132/76 126/62 O2 Sat by Pulse 98 100 Oximetry Intake and Output (last 12 hours): Intake & Output 11/11/15 11/12/15 11/12/15 18:59 06:59 18:59 Intake Total 700 700 Output Total 300 200 Balance 400 500 Intake: Tube Feeding 700 700 Output: Urine 300 200 Urethral (Yoo) 300 200 Other: # Bowel Movements 1 1 - Medications Medications: Current Medications Albuterol/Ipratropium (Duoneb 3 Mg/0.5 Mg (3 Ml) Ud) 3 ml INH RQ6 [facility] Last Admin: 11/12/15 13:17 Dose: 3 ml Aspirin (Aspirin) 325 mg PO DAILY [facility] Last Admin: 11/12/15 11:46 Dose: 325 mg Clopidogrel Bisulfate (Plavix) 75 mg PO DAILY [facility] Last Admin: 11/12/15 11:46 Dose: 75 mg Lisinopril (Zestril) 5 mg PO DAILY [facility] Last Admin: 11/12/15 11:47 Dose: 5 mg Phenytoin (Dilantin) 100 mg PEG TID [facility] Last Admin: 11/12/15 11:47 Dose: 100 mg Polyethylene Glycol (Miralax) 17 gm PEG BID [facility] Last Admin: 08/21/15 11:26 Dose: Not Given - Labs Labs (last 24 hours): Laboratory Results - last 24 hr 11/12/15 07:30 WBC 15.0 H RBC 4.16 L Hgb 12.9 Hct 38.6 MCV 92.8 MCH 30.9 MCHC 33.3 RDW 14.5 Plt Count 335 MPV 8.5 Neut % (Auto) 73.0 Lymph % (Auto) 10.4 L [place] % (Auto) 7.8 Eos % (Auto) 8.3 H Baso % (Auto) 0.5 Neut # 11.0 H Lymph # 1.6 [place] # 1.2 H Eos # 1.2 H Baso # 0.1 Sodium 142 Potassium 4.5 Chloride 104 Carbon Dioxide 27 Anion Gap 15 BUN 27 H Creatinine 0.4 L Est GFR ( Amer) > 60 Est GFR (Non-Af Amer) > 60 Random Glucose 141 H Calcium 8.8 Phosphorus 3.9 Magnesium 2.3 Total Bilirubin 0.5 AST 30 ALT 51 Alkaline Phosphatase 126 Total Protein 7.8 Albumin 3.7 Globulin 4.0 H Albumin/Globulin Ratio 0.9 L Attending/Attestation - Attestation I have personally seen and examined this patient.: Yes I have fully participated in the care of the patient.: Yes I have reviewed all pertinent clinical information: Yes Notes (Text): 11/12/15 15:30 Patient seen and examined at bedside with the residents. Patient's respiratory status is stable on trach collar We will continue current management. Family meeting for discussion about goals of care possibly tomorrow Continue current management
[2015-11-12] MEDS: Enoxaparin 40 mg Syringe SC SCH (19:07)
[2015-11-13] MEDS: Albuterol-Ipratrop 3 mg / 0.5 (3 ml) UD INH SCH ×5 (01:11→19:27)
[2015-11-13] MEDS: Enoxaparin 40 mg Syringe SC SCH (11:01)
[2015-11-13] MEDS: Phenytoin 100 mg/4 ml Oral Susp UD PEG SCH ×3 (11:02→18:13)
--- NOTE | 2015-11-13 18:20 | CP.PCM.PN ---
<Scout Marinelli - Last Filed: 11/13/15 18:16> Subjective - Subjective Subjective: Pt seen and examined at bedside this morning. Status unchanged, ROS unattainable , not following command. S/P family meeting today. Goals of care and placement issues were discussed. Will attempt to schedule another meeting next week per rn case management. Family agreed to check out the placement facility and information was given. Review of Systems - Review of Systems Systems not reviewed;Unavailable: Altered Mental Status Objective - Vital Signs/Intake and Output Vital Signs (last 24 hours): Vital Signs - 24 hr 11/12/15 11/13/15 11/13/15 22:00 05:46 13:10 Temperature 98.7 F 99.3 F 98.1 F Pulse Rate 88 93 H 96 H Respiratory 18 18 18 Rate Blood Pressure 129/89 108/68 106/68 O2 Sat by Pulse 99 98 97 Oximetry Intake and Output (last 12 hours): Intake & Output 11/12/15 11/13/15 11/13/15 18:59 06:59 18:59 Intake Total 600 Output Total 450 550 Balance 150 -550 Intake: Tube Feeding 450 Other 150 Output: Urine 450 550 Urethral (Yoo) 450 550 - Medications Medications: Current Medications Albuterol/Ipratropium (Duoneb 3 Mg/0.5 Mg (3 Ml) Ud) 3 ml INH RQ6 [facility] Last Admin: 11/13/15 13:27 Dose: 3 ml Aspirin (Aspirin) 325 mg PO DAILY [facility] Last Admin: 11/13/15 11:01 Dose: 325 mg Clopidogrel Bisulfate (Plavix) 75 mg PO DAILY [facility] Last Admin: 11/13/15 11:01 Dose: 75 mg Enoxaparin Sodium (Lovenox) 40 mg SC DAILY [facility] Last Admin: 11/13/15 11:01 Dose: 40 mg Lisinopril (Zestril) 5 mg PO DAILY [facility] Last Admin: 11/13/15 11:01 Dose: 5 mg Phenytoin (Dilantin) 100 mg PEG TID [facility] Last Admin: 11/13/15 18:13 Dose: 100 mg Polyethylene Glycol (Miralax) 17 gm PEG BID [facility] Last Admin: 08/21/15 11:26 Dose: Not Given - Constitutional Appears: Non-toxic, No Acute Distress - Head Exam Head Exam: NORMAL INSPECTION, NORMOCEPHALIC - Eye Exam Eye Exam: Normal appearance Pupil Exam: NORMAL ACCOMODATION - Respiratory Exam Respiratory Exam: Rales, Rhonchi, NORMAL BREATHING PATTERN - Cardiovascular Exam Cardiovascular Exam: REGULAR RHYTHM, +S1, +S2. absent: Gallop, Rubs - GI/Abdominal Exam GI & Abdominal Exam: Normal Bowel Sounds, Soft - Neurological Exam Neurological exam: Altered - Skin Skin Exam: Normal Color Assessment/Plan (1) Bed sore Current Visit: Yes Status: Acute Comment: 11/13: Continue to improve. Continue wound care, sensicare and medihoney. 11/09: Continue wound care. 11/06: Visualized today. Continue wound care. 11/02: Continue wound care. Will check 1x a week. 10/23: Improving, continue wound care. 10/22: -wound care following patient 10/19: -examined today -continue treatment with Sensicare and Medihoney as per Wound Care 10/12--> cont LWC as per Plastic and Wound care team 10/10: Wound care recommendations: SensiCare to buttocks around ulcer, MediHoney to necrotic tissue, Position Q2 hours, Recall when necrotic tissue is soft/loose for debridement 10/09: sacral ulcer, stage [address] Dr. Panchal consulted, f/u recommendations 08/09- stage one ulcer, healed, per nursing. continue repositioning of patient q2H dolphin mattress (2) Anoxic encephalopathy Current Visit: Yes Status: Acute Comment: Off vent patient with trach pending placement s/p PEG (3) Leukocytosis Current Visit: Yes Status: Acute Comment: F/U labs 11/19/15 Patient afebrile Monitor (4) Seizures Current Visit: Yes Status: Acute Comment: COntinue dilantin 100mg via PEG TID (5) Respiratory failure Current Visit: Yes Status: Acute Comment: off vent s/p trach and PEG pending placement (6) Prophylactic measure Current Visit: Yes Status: Acute Comment: Family agreed to check out placement. Lovenox 40mg SC qD [facility] <Donnell Ying - Last Filed: 11/14/15 08:15> Objective - Vital Signs/Intake and Output Vital Signs (last 24 hours): Vital Signs - 24 hr 11/13/15 11/13/15 11/14/15 13:10 21:08 05:50 Temperature 98.1 F 98.3 F 98.6 F Pulse Rate 96 H 91 H 89 Respiratory 18 19 20 Rate Blood Pressure 106/68 134/83 106/56 L O2 Sat by Pulse 97 100 100 Oximetry Intake and Output (last 12 hours): Intake & Output 11/13/15 11/14/15 11/14/15 18:59 06:59 18:59 Intake Total 750 Output Total 1100 400 Balance -350 -400 Intake: Tube Feeding 600 Other 150 Output: Urine 1100 400 Urethral (Yoo) 1100 400 Other: # Bowel Movements 1 - Medications Medications: Current Medications Albuterol/Ipratropium (Duoneb 3 Mg/0.5 Mg (3 Ml) Ud) 3 ml INH RQ6 [facility] Last Admin: 11/14/15 07:15 Dose: 3 ml Aspirin (Aspirin) 325 mg PO DAILY [facility] Last Admin: 11/13/15 11:01 Dose: 325 mg Clopidogrel Bisulfate (Plavix) 75 mg PO DAILY [facility] Last Admin: 11/13/15 11:01 Dose: 75 mg Enoxaparin Sodium (Lovenox) 40 mg SC DAILY [facility] Last Admin: 11/13/15 11:01 Dose: 40 mg Lisinopril (Zestril) 5 mg PO DAILY [facility] Last Admin: 11/13/15 11:01 Dose: 5 mg Phenytoin (Dilantin) 100 mg PEG TID [facility] Last Admin: 11/13/15 18:13 Dose: 100 mg Polyethylene Glycol (Miralax) 17 gm PEG BID [facility] Last Admin: 08/21/15 11:26 Dose: Not Given Attending/Attestation - Attestation I have personally seen and examined this patient.: Yes I have fully participated in the care of the patient.: Yes I have reviewed all pertinent clinical information: Yes Notes (Text): 11/13/15 18:13 Patient seen and examined with the resident earlier today. Patient's clinical condition remains the same. He is doing well on trach collar. Frequent suctioning needed. Management of sacral decubitus ulcer as per recommendations of wound care team. Had a family meeting today for deciding the goals of care for the patient. Patient's family will look into placement in the facilities that will accept the patient. Possibly another meeting in 1 week's time.
[2015-11-14] MEDS: Albuterol-Ipratrop 3 mg / 0.5 (3 ml) UD INH SCH ×4 (01:30→20:32)
--- NOTE | 2015-11-14 11:14 | CP.PCM.PN ---
<Scout Marinelli - Last Filed: 11/14/15 11:11> Subjective - Subjective Subjective: Pt seen and examined at bedside this morning. Status unchanged, ROS unattainable , not following command. Communicated with RN regarding rash treatment on bilateral lateral thighs. Wound care will be notified. Review of Systems - Review of Systems Systems not reviewed;Unavailable: Altered Mental Status Objective - Vital Signs/Intake and Output Vital Signs (last 24 hours): Vital Signs - 24 hr 11/13/15 11/13/15 11/14/15 13:10 21:08 05:50 Temperature 98.1 F 98.3 F 98.6 F Pulse Rate 96 H 91 H 89 Respiratory 18 19 20 Rate Blood Pressure 106/68 134/83 106/56 L O2 Sat by Pulse 97 100 100 Oximetry Intake and Output (last 12 hours): Intake & Output 11/13/15 11/14/15 11/14/15 18:59 06:59 18:59 Intake Total 750 Output Total 1100 400 Balance -350 -400 Intake: Tube Feeding 600 Other 150 Output: Urine 1100 400 Urethral (Yoo) 1100 400 Other: # Bowel Movements 1 - Medications Medications: Current Medications Albuterol/Ipratropium (Duoneb 3 Mg/0.5 Mg (3 Ml) Ud) 3 ml INH RQ6 [facility] Last Admin: 11/14/15 07:15 Dose: 3 ml Aspirin (Aspirin) 325 mg PO DAILY [facility] Last Admin: 11/13/15 11:01 Dose: 325 mg Clopidogrel Bisulfate (Plavix) 75 mg PO DAILY [facility] Last Admin: 11/13/15 11:01 Dose: 75 mg Enoxaparin Sodium (Lovenox) 40 mg SC DAILY [facility] Last Admin: 11/13/15 11:01 Dose: 40 mg Lisinopril (Zestril) 5 mg PO DAILY [facility] Last Admin: 11/13/15 11:01 Dose: 5 mg Phenytoin (Dilantin) 100 mg PEG TID [facility] Last Admin: 11/13/15 18:13 Dose: 100 mg Polyethylene Glycol (Miralax) 17 gm PEG BID [facility] Last Admin: 08/21/15 11:26 Dose: Not Given - Constitutional Appears: Non-toxic, No Acute Distress - Head Exam Head Exam: NORMAL INSPECTION, NORMOCEPHALIC - Eye Exam Eye Exam: Normal appearance Pupil Exam: NORMAL ACCOMODATION - Respiratory Exam Respiratory Exam: Rales, NORMAL BREATHING PATTERN - Cardiovascular Exam Cardiovascular Exam: REGULAR RHYTHM, +S1, +S2 - GI/Abdominal Exam GI & Abdominal Exam: Normal Bowel Sounds, Soft - Neurological Exam Neurological exam: Altered - Skin Skin Exam: Rash Additional comments: Rash on bilateral lateral thighs Assessment/Plan (1) Bed sore Current Visit: Yes Status: Acute Comment: 11/13: Continue to improve. Continue wound care, sensicare and medihoney. 11/09: Continue wound care. 11/06: Visualized today. Continue wound care. 11/02: Continue wound care. Will check 1x a week. 10/23: Improving, continue wound care. 10/22: -wound care following patient 10/19: -examined today -continue treatment with Sensicare and Medihoney as per Wound Care 10/12--> cont LWC as per Plastic and Wound care team 10/10: Wound care recommendations: SensiCare to buttocks around ulcer, MediHoney to necrotic tissue, Position Q2 hours, Recall when necrotic tissue is soft/loose for debridement 10/09: sacral ulcer, stage [address] Dr. Panchal consulted, f/u recommendations 08/09- stage one ulcer, healed, per nursing. continue repositioning of patient q2H dolphin mattress (2) Anoxic encephalopathy Current Visit: Yes Status: Acute Comment: Off vent patient with trach pending placement s/p PEG (3) Leukocytosis Current Visit: Yes Status: Acute Comment: F/U labs 11/19/15 Patient afebrile Monitor (4) Seizures Current Visit: Yes Status: Acute Comment: COntinue dilantin 100mg via PEG TID (5) Respiratory failure Current Visit: Yes Status: Acute Comment: off vent s/p trach and PEG pending placement (6) Prophylactic measure Current Visit: Yes Status: Acute Comment: Family agreed to check out placement. Lovenox 40mg SC qD [facility] <Donnell Ying - Last Filed: 11/14/15 14:42> Objective - Vital Signs/Intake and Output Vital Signs (last 24 hours): Vital Signs - 24 hr 11/13/15 11/14/15 11/14/15 21:08 05:50 10:00 Temperature 98.3 F 98.6 F 98.1 F Pulse Rate 91 H 89 97 H Respiratory 19 20 18 Rate Blood Pressure 134/83 106/56 L 101/65 O2 Sat by Pulse 100 100 97 Oximetry 11/14/15 13:47 Temperature 98.0 F Pulse Rate 87 Respiratory 18 Rate Blood Pressure 115/76 O2 Sat by Pulse 100 Oximetry Intake and Output (last 12 hours): Intake & Output 11/13/15 11/14/15 11/14/15 18:59 06:59 18:59 Intake Total 750 Output Total 1100 400 350 Balance -350 -400 -350 Intake: Tube Feeding 600 Other 150 Output: Urine 1100 400 350 Urethral (Yoo) 1100 400 350 Other: # Bowel Movements 1 - Medications Medications: Current Medications Albuterol/Ipratropium (Duoneb 3 Mg/0.5 Mg (3 Ml) Ud) 3 ml INH RQ6 [facility] Last Admin: 11/14/15 13:41 Dose: 3 ml Aspirin (Aspirin) 325 mg PO DAILY [facility] Last Admin: 11/14/15 12:26 Dose: 325 mg Clopidogrel Bisulfate (Plavix) 75 mg PO DAILY [facility] Last Admin: 11/14/15 12:26 Dose: 75 mg Enoxaparin Sodium (Lovenox) 40 mg SC DAILY [facility] Last Admin: 11/14/15 12:26 Dose: 40 mg Lisinopril (Zestril) 5 mg PO DAILY [facility] Last Admin: 11/14/15 12:26 Dose: 5 mg Phenytoin (Dilantin) 100 mg PEG TID [facility] Last Admin: 11/14/15 14:39 Dose: 100 mg Polyethylene Glycol (Miralax) 17 gm PEG BID [facility] Last Admin: 08/21/15 11:26 Dose: Not Given Attending/Attestation - Attestation I have personally seen and examined this patient.: Yes I have fully participated in the care of the patient.: Yes I have reviewed all pertinent clinical information: Yes Notes (Text): 11/14/15 14:40 Patient seen and examined at bedside with the resident. Patient has anoxic encephalopathy. No change in clinical condition. Doing well on trach collar.Frequent suctioning. Management of decubitus ulcer and discoloration of skin on both the thighs as per wound care team. Continue Medi honey and SensiCare local treatment. Frequent suctioning as mentioned above and and turning the position of the patient every 2 hours.
[2015-11-14] MEDS: Enoxaparin 40 mg Syringe SC SCH (12:26)
[2015-11-14] MEDS: Phenytoin 100 mg/4 ml Oral Susp UD PEG SCH ×3 (12:27→17:38)
[2015-11-15] MEDS: Albuterol-Ipratrop 3 mg / 0.5 (3 ml) UD INH SCH ×4 (01:26→19:40)
[2015-11-15] MEDS: Enoxaparin 40 mg Syringe SC SCH (10:30)
[2015-11-15] MEDS: Phenytoin 100 mg/4 ml Oral Susp UD PEG SCH ×3 (10:31→18:00)
--- NOTE | 2015-11-15 13:58 | CP.PCM.PN ---
<Mariella Wagner - Last Filed: 11/15/15 14:02> Subjective - Subjective Subjective: Medicine Progress Note: Patient resting in no acute distress at home. Patient is awake and opened eyes to touch. Status unchanged, ROS unattainable, not following commands. Review of Systems - Review of Systems Systems not reviewed;Unavailable: Other (anoxic brain injury) Objective - Vital Signs/Intake and Output Vital Signs (last 24 hours): Vital Signs - 24 hr 11/14/15 11/14/15 11/15/15 15:30 21:20 06:36 Temperature 100 F H 98.4 F Pulse Rate 101 H 101 H 89 Respiratory 31 H 20 Rate Blood Pressure 104/58 L 105/69 O2 Sat by Pulse 99 100 Oximetry Intake and Output (last 12 hours): Intake & Output 11/14/15 11/15/15 11/15/15 18:59 06:59 18:59 Output Total 350 300 300 Balance -350 -300 -300 Output: Urine 350 300 300 Urethral (Yoo) 350 300 300 - Medications Medications: Current Medications Albuterol/Ipratropium (Duoneb 3 Mg/0.5 Mg (3 Ml) Ud) 3 ml INH RQ6 [facility] Last Admin: 11/15/15 13:17 Dose: 3 ml Aspirin (Aspirin) 325 mg PO DAILY [facility] Last Admin: 11/14/15 12:26 Dose: 325 mg Clopidogrel Bisulfate (Plavix) 75 mg PO DAILY [facility] Last Admin: 11/15/15 10:30 Dose: 75 mg Enoxaparin Sodium (Lovenox) 40 mg SC DAILY [facility] Last Admin: 11/15/15 10:30 Dose: 40 mg Lisinopril (Zestril) 5 mg PO DAILY [facility] Last Admin: 11/15/15 10:30 Dose: 5 mg Phenytoin (Dilantin) 100 mg PEG TID [facility] Last Admin: 11/15/15 10:31 Dose: 100 mg Polyethylene Glycol (Miralax) 17 gm PEG BID [facility] Last Admin: 08/21/15 11:26 Dose: Not Given - Constitutional Appears: Toxic, No Acute Distress - Head Exam Head Exam: NORMAL INSPECTION, NORMOCEPHALIC - Eye Exam Eye Exam: EOMI, Normal appearance - ENT Exam ENT Exam: Mucous Membranes Moist - Neck Exam Additional comments: +trach tube in place - Respiratory Exam Respiratory Exam: Clear to PA & Lateral. absent: Rales, Rhonchi, Wheezes - Cardiovascular Exam Cardiovascular Exam: REGULAR RHYTHM, +S1 - Back Exam Back exam: rash noted (LE ) - Neurological Exam Neurological exam: Altered - Psychiatric Exam Psychiatric exam: Normal Affect, Normal Mood Assessment/Plan (1) Leukocytosis Current Visit: Yes Status: Acute Comment: F/U CBC and CMP in the AM 11/16/15. F/U CXR F/U UA Monitor (2) Bed sore Current Visit: Yes Status: Acute Comment: 11/15: Continue wound care, [facility]are and medihoney. 11/13: Continue to improve. Continue wound care, [facility] and [facility]ihoney. 11/09: Continue wound care. 11/06: Visualized today. Continue wound care. 11/02: Continue wound care. Will check 1x a week. 10/23: Improving, continue wound care. 10/22: -wound care following patient 10/19: -examined today -continue treatment with [facility] and [facility] as per Wound Care 10/12--> cont LWC as per Plastic and Wound care team 10/10: Wound care recommendations: [facility] to buttocks around ulcer, MediHoney to necrotic tissue, Position Q2 hours, Recall when necrotic tissue is soft/loose for debridement 10/09: sacral ulcer, stage [address] Dr. Panchal consulted, f/u recommendations 08/09- stage one ulcer, healed, per nursing. continue repositioning of patient q2H dolphin mattress (3) Anoxic encephalopathy Current Visit: Yes Status: Acute Comment: Off vent patient with trach pending placement- Family agreed to check out placement. s/p PEG (4) Respiratory failure Current Visit: Yes Status: Acute Comment: off vent s/p trach and PEG pending placement (5) STEMI (ST elevation myocardial infarction) Current Visit: Yes Status: Acute Comment: cardiac stents on 06/13/15. Continue Lisinopril 5mg PO daily Continue Plavix 75mg PO daily Continue ASA 325mg PO daily (6) Seizures Current Visit: Yes Status: Acute Comment: Continue dilantin 100mg via PEG TID (7) Deep tissue injury Current Visit: Yes Status: Acute Comment: Sacral Decub ulcer Stage II. Continue wound care Qshift As per wound care, apply protective ointment daily as a protective measure. Desitin TOP BID Nystatin Powder BID Continue body checks. (8) Prophylactic measure Current Visit: Yes Status: Acute Comment: Lovenox 40mg SC qD [facility]CD[facility] <Donnell Ying - Last Filed: 11/15/15 22:32> Objective - Vital Signs/Intake and Output Vital Signs (last 24 hours): Vital Signs - 24 hr 11/15/15 11/15/15 11/15/15 06:36 14:00 21:52 Temperature 98.4 F 98.3 F 98.5 F Pulse Rate 89 98 H 98 H Respiratory 20 18 20 Rate Blood Pressure 105/69 115/78 125/82 O2 Sat by Pulse 100 94 L 100 Oximetry Intake and Output (last 12 hours): Intake & Output 11/15/15 11/15/15 11/16/15 06:59 18:59 06:59 Output Total 300 600 Balance -300 -600 Output: Urine 300 600 Urethral (Yoo) 300 600 - Medications Medications: Current Medications Albuterol/Ipratropium (Duoneb 3 Mg/0.5 Mg (3 Ml) Ud) 3 ml INH RQ6 [facility] Last Admin: 11/15/15 19:40 Dose: 3 ml Aspirin (Aspirin) 325 mg PO DAILY [facility] Last Admin: 11/15/15 10:30 Dose: 325 mg Clopidogrel Bisulfate (Plavix) 75 mg PO DAILY [facility] Last Admin: 11/15/15 10:30 Dose: 75 mg Enoxaparin Sodium (Lovenox) 40 mg SC DAILY [facility] Last Admin: 11/15/15 10:30 Dose: 40 mg Lisinopril (Zestril) 5 mg PO DAILY [facility] Last Admin: 11/15/15 10:30 Dose: 5 mg Phenytoin (Dilantin) 100 mg PEG TID [facility] Last Admin: 11/15/15 18:00 Dose: 100 mg Polyethylene Glycol (Miralax) 17 gm PEG BID [facility] Last Admin: 08/21/15 11:26 Dose: Not Given Attending/Attestation - Attestation I have personally seen and examined this patient.: Yes I have fully participated in the care of the patient.: Yes I have reviewed all pertinent clinical information: Yes Notes (Text): 11/15/15 22:30 patient seen and examined at bedside elevated WBC noted will obtain UA, Urine Cx and CXR Continue local wound care for DU turn [id number]
--- NOTE | 2015-11-15 14:48 | RAD ---
HISTORY: Leukocytosis. Technique: Single view portable semi erect @ 13:40 COMPARISON: 10/20/2015 FINDINGS: LUNGS: No active pulmonary disease. PLEURA: No significant pleural effusion identified, no pneumothorax apparent. CARDIOVASCULAR: No evidence of acute, significant cardiovascular disease. OSSEOUS STRUCTURES: No significant abnormalities. VISUALIZED UPPER ABDOMEN: Normal. OTHER FINDINGS: Stable, satisfactory position of tracheostomy device. IMPRESSION: No active disease. No significant interval change compared to the prior examination(s).
[2015-11-16] MEDS: Albuterol-Ipratrop 3 mg / 0.5 (3 ml) UD INH SCH ×4 (01:11→19:33)
--- NOTE | 2015-11-16 01:43 | CP.PCM.PN ---
<Nely Pate - Last Filed: 11/16/15 01:40> Subjective - Subjective Subjective: Medicine Progress Note Patient seen and examined. No acute change in patient's condition. Pt was awake at time of examination. ROS not able to be obtained due to chronic condition. Pt has coarse breath sounds but does not appear to be in respiratory distress. Yoo catheter draining dark colored urine. Review of Systems - Review of Systems Systems not reviewed;Unavailable: Other (Chronic condition) Objective - Vital Signs/Intake and Output Vital Signs (last 24 hours): Vital Signs - 24 hr 11/15/15 11/15/15 11/15/15 06:36 14:00 21:52 Temperature 98.4 F 98.3 F 98.5 F Pulse Rate 89 98 H 98 H Respiratory 20 18 20 Rate Blood Pressure 105/69 115/78 125/82 O2 Sat by Pulse 100 94 L 100 Oximetry Intake and Output (last 12 hours): Intake & Output 11/15/15 11/15/15 11/16/15 06:59 18:59 06:59 Output Total 300 600 425 Balance -300 -600 -425 Output: Urine 300 600 425 Urethral (Yoo) 300 600 425 - Medications Medications: Current Medications Albuterol/Ipratropium (Duoneb 3 Mg/0.5 Mg (3 Ml) Ud) 3 ml INH RQ6 [facility] Last Admin: 11/16/15 01:11 Dose: 3 ml Aspirin (Aspirin) 325 mg PO DAILY [facility] Last Admin: 11/15/15 10:30 Dose: 325 mg Clopidogrel Bisulfate (Plavix) 75 mg PO DAILY [facility] Last Admin: 11/15/15 10:30 Dose: 75 mg Enoxaparin Sodium (Lovenox) 40 mg SC DAILY [facility] Last Admin: 11/15/15 10:30 Dose: 40 mg Lisinopril (Zestril) 5 mg PO DAILY [facility] Last Admin: 11/15/15 10:30 Dose: 5 mg Phenytoin (Dilantin) 100 mg PEG TID [facility] Last Admin: 11/15/15 18:00 Dose: 100 mg Polyethylene Glycol (Miralax) 17 gm PEG BID [facility] Last Admin: 08/21/15 11:26 Dose: Not Given - Constitutional Appears: No Acute Distress, Chronically Ill - Head Exam Head Exam: ATRAUMATIC, NORMOCEPHALIC - Eye Exam Eye Exam: Normal appearance - ENT Exam ENT Exam: Mucous Membranes Moist - Neck Exam Additional comments: tracheostomy tube in place, no secretions noticed at time of exam - Respiratory Exam Respiratory Exam: NORMAL BREATHING PATTERN. absent: Rales, Rhonchi, Wheezes, Respiratory Distress Additional comments: coarse breath sounds - Cardiovascular Exam Cardiovascular Exam: REGULAR RHYTHM, +S1, +S2. absent: Systolic Murmur - GI/Abdominal Exam GI & Abdominal Exam: Soft. absent: Distended, Firm - Extremities Exam Extremities exam: absent: pedal edema - Neurological Exam Neurological exam: Altered. absent: Alert - Skin Skin Exam: Dry, Normal Color, Warm Assessment/Plan (1) Anoxic encephalopathy Current Visit: Yes Status: Acute Comment: No acute change in mental status patient with trach in place pending placement- Family agreed to check out placement. s/p PEG (2) Respiratory failure Current Visit: Yes Status: Acute Comment: off vent s/p trach and PEG pending placement (3) CAD (coronary artery disease) Current Visit: Yes Status: Acute Comment: s/p STEMI and stent placement Continue ASA 325mg PO daily Continue Lisinopril 5mg PO daily Continue Plavix 75mg PO daily (4) STEMI (ST elevation myocardial infarction) Current Visit: Yes Status: Acute Comment: cardiac stents on 06/13/15. Continue Lisinopril 5mg PO daily Continue Plavix 75mg PO daily Continue ASA 325mg PO daily (5) Seizures Current Visit: Yes Status: Acute Comment: Continue dilantin 100mg via PEG TID (6) Leukocytosis Current Visit: Yes Status: Acute Comment: F/U CBC and CMP in the AM 11/16/15. 11/15 CXR- No active disease. No significant interval change since last CXR on 10/20. F/U UA Monitor (7) Bed sore Current Visit: Yes Status: Acute Comment: 11/16: Continue current management of wound care. 11/15: Continue wound care, [facility] and medihoney. 11/13: Continue to improve. Continue wound care, [facility] and medihoney. 11/09: Continue wound care. 11/06: Visualized today. Continue wound care. 11/02: Continue wound care. Will check 1x a week. 10/23: Improving, continue wound care. 10/22: -wound care following patient 10/19: -examined today -continue treatment with [facility] and Med[facility] as per Wound Care 10/12--> cont LWC as per Plastic and Wound care team 10/10: Wound care recommendations: [facility] to buttocks around ulcer, MediHoney to necrotic tissue, Position Q2 hours, Recall when necrotic tissue is soft/loose for debridement 10/09: sacral ulcer, stage [address] Dr. Panchal consulted, f/u recommendations 08/09- stage one ulcer, healed, per nursing. continue repositioning of patient q2H dolphin mattress (8) Deep tissue injury Current Visit: Yes Status: Acute Comment: Sacral Decub ulcer Stage II. Continue wound care Qshift As per wound care, apply protective ointment daily as a protective measure. Desitin TOP BID Nystatin Powder BID Continue body checks. (9) Prophylactic measure Current Visit: Yes Status: Acute Comment: Lovenox 40mg SC qD [facility]CD[facility] <StepanDonnell M - Last Filed: 11/16/15 15:57> Objective - Vital Signs/Intake and Output Vital Signs (last 24 hours): Vital Signs - 24 hr 11/15/15 11/16/15 11/16/15 21:52 05:38 08:56 Temperature 98.5 F 97.6 F Pulse Rate 98 H 92 H 92 H Respiratory 20 18 Rate Blood Pressure 125/82 115/76 O2 Sat by Pulse 100 100 Oximetry 11/16/15 14:43 Temperature 98.9 F Pulse Rate 102 H Respiratory 20 Rate Blood Pressure 118/83 O2 Sat by Pulse 98 Oximetry Intake and Output (last 12 hours): Intake & Output 11/15/15 11/16/15 11/16/15 18:59 06:59 18:59 Intake Total 900 Output Total 600 725 Balance -600 -725 900 Intake: Tube Feeding 900 Output: Urine 600 725 Urethral (Yoo) 600 725 - Medications Medications: Current Medications Albuterol/Ipratropium (Duoneb 3 Mg/0.5 Mg (3 Ml) Ud) 3 ml INH RQ6 [facility] Last Admin: 11/16/15 13:38 Dose: 3 ml Aspirin (Aspirin) 325 mg PO DAILY [facility] Last Admin: 11/16/15 09:53 Dose: 325 mg Clopidogrel Bisulfate (Plavix) 75 mg PO DAILY [facility] Last Admin: 11/16/15 09:53 Dose: 75 mg Enoxaparin Sodium (Lovenox) 40 mg SC DAILY [facility] Last Admin: 11/16/15 09:53 Dose: 40 mg Ceftriaxone Sodium (Rocephin Iv 1 Gm Duplex) 50 mls @ 100 mls/hr IVPB DAILY [facility] Lisinopril (Zestril) 5 mg PO DAILY [facility] Last Admin: 11/16/15 09:53 Dose: 5 mg Phenytoin (Dilantin) 100 mg PEG TID [facility] Last Admin: 11/16/15 14:27 Dose: 100 mg Polyethylene Glycol (Miralax) 17 gm PEG BID [facility] Last Admin: 08/21/15 11:26 Dose: Not Given - Labs Labs (last 24 hours): Laboratory Results - last 24 hr 11/16/15 11/16/15 07:13 07:43 WBC 8.3 RBC 3.93 L Hgb 12.3 Hct 36.6 MCV 93.2 MCH 31.3 H MCHC 33.6 RDW 14.2 Plt Count 305 MPV 8.3 Neut % (Auto) 57.3 Lymph % (Auto) 13.3 L [place] % (Auto) 11.3 H Eos % (Auto) 17.8 H Baso % (Auto) 0.3 Neut # 4.7 Lymph # 1.1 Crisp # 0.9 H Eos # 1.5 H Baso # 0.0 Sodium 139 Potassium 4.1 Chloride 101 Carbon Dioxide 31 H Anion Gap 11 BUN 20 Creatinine 0.4 L Est GFR ( Amer) > 60 Est GFR (Non-Af Amer) > 60 Random Glucose 124 H Calcium 8.9 Total Bilirubin 0.4 AST 33 ALT 42 Alkaline Phosphatase 115 Total Protein 7.5 Albumin 3.5 Globulin 4.0 H Albumin/Globulin Ratio 0.9 L Urine Color Yellow Urine Clarity Turbid Urine pH 7.0 Ur Specific [place] 1.014 Urine Protein 1+ H Urine Glucose (UA) Normal Urine Ketones Negative Urine Blood 3+ H Urine Nitrate Negative Urine Bilirubin Negative Urine Urobilinogen Normal Ur Leukocyte Esterase 3+ H Urine WBC (Auto) 100 H Urine RBC (Auto) 50 H Calcium Oxalate Crystal Few H Urine Bacteria Many H Urine Yeast (Budding) Few H Attending/Attestation - Attestation I have personally seen and examined this patient.: Yes I have fully participated in the care of the patient.: Yes I have reviewed all pertinent clinical information: Yes Notes (Text): 11/16/15 15:53 Chart reviewed. Events noted. Repeat labs noted. WBC within normal limits now. However urinalysis shows positive leukocyte esterase estrogen positive nitrates. We will start the patient on IV antibiotic and obtain urine culture. Continue to turn and position every 2 hours. Discussed with nursing.
[2015-11-16 07:44] LABS: BASO % 0.3 % (0.0-2.0); EOS # 1.5 K/uL (0.0-0.7); EOS % 17.8 % (0.0-4.0); HEMOGLOBIN 12.3 g/dL (12.0-18.0); LYMPH # 1.1 K/uL (1.0-4.3); LYMPH % 13.3 % (20.0-40.0); MEAN CELL VOLUME 93.2 fL (80.0-94.0); MEAN CORPUSCULAR HEMOGLOBIN 31.3 pg (27.0-31.0); MEAN CORPUSCULAR HGB CONC 33.6 g/dL (33.0-37.0); MEAN PLATELET VOLUME 8.3 fL (7.2-11.7); MONO # 0.9 K/uL (0.0-0.8); MONO % 11.3 % (0.0-10.0); NEUT # 4.7 K/uL (1.8-7.0); NEUT % 57.3 % (50.0-75.0); RBC 3.93 Mil/uL (4.40-5.90); RED CELL DISTRIBUTION WIDTH 14.2 % (11.5-14.5); WHITE BLOOD COUNT 8.3 K/uL (4.8-10.8)
[2015-11-16 08:05] LABS: URINE BILIRUBIN NEGATIVE (NEGATIVE); URINE BLOOD 3+ (NEGATIVE); URINE CLARITY Turbid (Clear); URINE COLOR Yellow (YELLOW); URINE GLUCOSE (UA) Normal (Normal); URINE LEUKOCYTE ESTERASE 3+ Leu/uL (Negative); URINE PROTEIN 1+ mg/dL (NEGATIVE); URINE UROBILINOGEN Normal mg/dL (0.2-1.0)
[2015-11-16 08:07] LABS: ALBUMIN 3.5 g/dL (3.5-5.0)
[2015-11-16 08:10] LABS: ALB/GLOB RATIO 0.9 (1.0-2.1); AST/SGOT 33 U/L (17-59); BLOOD UREA NITROGEN 20 mg/dL (9-20); GFR NON-AFRICAN AMERICAN > 60
[2015-11-16 08:11] LABS: ALT/SGPT 42 U/L (21-72); CALCIUM 8.9 mg/dL (8.4-10.2)
[2015-11-16 08:25] LABS: URINE BACTERIA MANY (<OCC); URINE CALCIUM OXALATE CRYSTALS FEW /hpf (<OCC)
[2015-11-16] MEDS: Enoxaparin 40 mg Syringe SC SCH (09:53)
[2015-11-16] MEDS: Phenytoin 100 mg/4 ml Oral Susp UD PEG SCH ×3 (09:54→17:19)
[2015-11-16] MEDS: cefTRIAXone IV 1 gm in Dextros 50 ML IVPB SCH (17:20)
--- NOTE | 2015-11-17 00:35 | CP.PCM.PN ---
<Scout Marinelli - Last Filed: 11/17/15 00:32> Subjective - Subjective Subjective: Pt seen and examined at bedside. ROS unattainable, pt awake but not responding Mandarin commands. Per nurse pt was to have bright red blood in the stool when changing. Hgb was checked yesterday morning due to dark color urine and found to be 12.3. Will hold ASA, Plavix and Lovenox for now. Will check CBC later in the morning. Review of Systems - Review of Systems Systems not reviewed;Unavailable: Acuity of Condition Objective - Vital Signs/Intake and Output Vital Signs (last 24 hours): Vital Signs - 24 hr 11/16/15 11/16/15 11/16/15 05:38 08:56 14:43 Temperature 97.6 F 98.9 F Pulse Rate 92 H 92 H 102 H Respiratory 18 20 Rate Blood Pressure 115/76 118/83 O2 Sat by Pulse 100 98 Oximetry 11/16/15 21:31 Temperature 99.4 F Pulse Rate 101 H Respiratory 18 Rate Blood Pressure 125/86 O2 Sat by Pulse 100 Oximetry Intake and Output (last 12 hours): Intake & Output 11/16/15 11/16/15 11/17/15 06:59 18:59 06:59 Intake Total 2150 Output Total 725 900 700 Balance -725 1250 -700 Intake: Intake, IV Amount 50 Left Hand 50 Tube Feeding 1700 Other 400 Output: Urine 725 900 700 Urethral (Yoo) 725 900 700 Other: # Bowel Movements 2 - Medications Medications: Current Medications Albuterol/Ipratropium (Duoneb 3 Mg/0.5 Mg (3 Ml) Ud) 3 ml INH RQ6 [facility] Last Admin: 11/16/15 19:33 Dose: 3 ml Aspirin (Aspirin) 325 mg PO DAILY [facility] Last Admin: 11/16/15 09:53 Dose: 325 mg Clopidogrel Bisulfate (Plavix) 75 mg PO DAILY [facility] Last Admin: 11/16/15 09:53 Dose: 75 mg Enoxaparin Sodium (Lovenox) 40 mg SC DAILY [facility] Last Admin: 11/16/15 09:53 Dose: 40 mg Ceftriaxone Sodium (Rocephin Iv 1 Gm Duplex) 50 mls @ 100 mls/hr IVPB DAILY [facility] Last Admin: 11/16/15 17:20 Dose: 100 mls/hr Lisinopril (Zestril) 5 mg PO DAILY [facility] Last Admin: 11/16/15 09:53 Dose: 5 mg Phenytoin (Dilantin) 100 mg PEG TID [facility] Last Admin: 11/16/15 17:19 Dose: 100 mg Polyethylene Glycol (Miralax) 17 gm PEG BID [facility] Last Admin: 08/21/15 11:26 Dose: Not Given - Labs Labs (last 24 hours): Laboratory Results - last 24 hr 11/16/15 11/16/15 07:13 07:43 WBC 8.3 RBC 3.93 L Hgb 12.3 Hct 36.6 MCV 93.2 MCH 31.3 H MCHC 33.6 RDW 14.2 Plt Count 305 MPV 8.3 Neut % (Auto) 57.3 Lymph % (Auto) 13.3 L [place] % (Auto) 11.3 H Eos % (Auto) 17.8 H Baso % (Auto) 0.3 Neut # 4.7 Lymph # 1.1 [place] # 0.9 H Eos # 1.5 H Baso # 0.0 Sodium 139 Potassium 4.1 Chloride 101 Carbon Dioxide 31 H Anion Gap 11 BUN 20 Creatinine 0.4 L Est GFR ( Amer) > 60 Est GFR (Non-Af Amer) > 60 Random Glucose 124 H Calcium 8.9 Total Bilirubin 0.4 AST 33 ALT 42 Alkaline Phosphatase 115 Total Protein 7.5 Albumin 3.5 Globulin 4.0 H Albumin/Globulin Ratio 0.9 L Urine Color Yellow Urine Clarity Turbid Urine pH 7.0 Ur Specific [place] 1.014 Urine Protein 1+ H Urine Glucose (UA) Normal Urine Ketones Negative Urine Blood 3+ H Urine Nitrate Negative Urine Bilirubin Negative Urine Urobilinogen Normal Ur Leukocyte Esterase 3+ H Urine WBC (Auto) 100 H Urine RBC (Auto) 50 H Calcium Oxalate Crystal Few H Urine Bacteria Many H Urine Yeast (Budding) Few H - Constitutional Appears: Non-toxic, No Acute Distress - Head Exam Head Exam: NORMAL INSPECTION, NORMOCEPHALIC - Eye Exam Eye Exam: Normal appearance Pupil Exam: NORMAL ACCOMODATION - Respiratory Exam Respiratory Exam: Rales, NORMAL BREATHING PATTERN - Cardiovascular Exam Cardiovascular Exam: REGULAR RHYTHM, +S1, +S2 - GI/Abdominal Exam GI & Abdominal Exam: Normal Bowel Sounds, Soft. absent: Tenderness - Neurological Exam Neurological exam: Altered - Skin Skin Exam: Dry, Intact Assessment/Plan (1) Blood in stool Current Visit: Yes Status: Acute Comment: Bright red stool noted per RN. 11/16 Hgb 12.3 Hold ASA, Plavix and Lovenox F/U CBC on 11/17 Continue monitor (2) Bed sore Current Visit: Yes Status: Acute Comment: 11/16: Continue current management of wound care. 11/15: Continue wound care, [facility] and medihoney. 11/13: Continue to improve. Continue wound care, [facility]icare and medihoney. 11/09: Continue wound care. 11/06: Visualized today. Continue wound care. 11/02: Continue wound care. Will check 1x a week. 10/23: Improving, continue wound care. 10/22: -wound care following patient 10/19: -examined today -continue treatment with [facility] and Medihoney as per Wound Care 10/12--> cont LWC as per Plastic and Wound care team 10/10: Wound care recommendations: [facility] to buttocks around ulcer, MediHoney to necrotic tissue, Position Q2 hours, Recall when necrotic tissue is soft/loose for debridement 10/09: sacral ulcer, stage 3 Dr. Panchal consulted, f/u recommendations 08/09- stage one ulcer, healed, per nursing. continue repositioning of patient q2H dolphin mattress (3) Anoxic encephalopathy Current Visit: Yes Status: Acute Comment: No acute change in mental status patient with trach in place pending placement- Family agreed to check out placement. s/p PEG (4) Leukocytosis Current Visit: Yes Status: Acute Comment: No Leukocytosis as of 11/16. 11/15 CXR- No active disease. No significant interval change since last CXR on 10/20. F/U UA Monitor (5) Seizures Current Visit: Yes Status: Acute Comment: Continue dilantin 100mg via PEG TID (6) Respiratory failure Current Visit: Yes Status: Acute Comment: off vent s/p trach and PEG pending placement (7) Prophylactic measure Current Visit: Yes Status: Acute Comment: Lovenox on hold SCDs <Donnell Ying - Last Filed: 11/17/15 14:29> Objective - Vital Signs/Intake and Output Vital Signs (last 24 hours): Vital Signs - 24 hr 11/16/15 11/16/15 11/17/15 14:43 21:31 05:19 Temperature 98.9 F 99.4 F 98.3 F Pulse Rate 102 H 101 H 96 H Respiratory 20 18 18 Rate Blood Pressure 118/83 125/86 108/64 O2 Sat by Pulse 98 100 100 Oximetry 11/17/15 11/17/15 07:42 13:22 Temperature 98.5 F Pulse Rate 96 H 99 H Respiratory 20 Rate Blood Pressure 115/72 O2 Sat by Pulse 100 Oximetry Intake and Output (last 12 hours): Intake & Output 11/16/15 11/17/15 11/17/15 18:59 06:59 18:59 Intake Total 2150 900 Output Total 900 1050 Balance 1250 -1050 900 Intake: Intake, IV Amount 50 Left Hand 50 Tube Feeding 1700 900 Other 400 Output: Urine 900 1050 Urethral (Yoo) 900 1050 Other: # Bowel Movements 2 2 - Medications Medications: Current Medications Albuterol/Ipratropium (Duoneb 3 Mg/0.5 Mg (3 Ml) Ud) 3 ml INH RQ6 [facility] Last Admin: 11/17/15 14:12 Dose: 3 ml Aspirin (Aspirin) 325 mg PO DAILY [facility] Last Admin: 11/16/15 09:53 Dose: 325 mg Clopidogrel Bisulfate (Plavix) 75 mg PO DAILY [facility] Last Admin: 11/16/15 09:53 Dose: 75 mg Enoxaparin Sodium (Lovenox) 40 mg SC DAILY [facility] Last Admin: 11/16/15 09:53 Dose: 40 mg Famotidine (Pepcid) 20 mg IVP Q12 [facility] Ceftriaxone Sodium (Rocephin Iv 1 Gm Duplex) 50 mls @ 100 mls/hr IVPB DAILY [facility] Last Admin: 11/17/15 09:37 Dose: 100 mls/hr Lactobacillus Acidophilus (Bacid Acidophilus) 1 cap PO BID [facility] Lisinopril (Zestril) 5 mg PO DAILY [facility] Last Admin: 11/17/15 09:37 Dose: 5 mg Phenytoin (Dilantin) 100 mg PEG TID [facility] Last Admin: 11/17/15 14:09 Dose: 100 mg Polyethylene Glycol (Miralax) 17 gm PEG BID [facility] Last Admin: 08/21/15 11:26 Dose: Not Given - Labs Labs (last 24 hours): Laboratory Results - last 24 hr 11/17/15 07:32 WBC 9.2 RBC 3.84 L Hgb 12.0 Hct 35.7 MCV 93.1 MCH 31.2 H MCHC 33.5 RDW 14.2 Plt Count 311 MPV 8.5 Attending/Attestation - Attestation I have personally seen and examined this patient.: Yes I have fully participated in the care of the patient.: Yes I have reviewed all pertinent clinical information: Yes Notes (Text): 11/17/15 14:28 Chart reviewed and events noted. Patient had an episode of the bright red blood per rectum last night. Aspirin, Plavix and Lovenox were held. GI evaluation noted. Patient restarted on Lovenox. Patient also started on Pepcid for GI prophylaxis. Patient on Rocephin for UTI. Follow-up urine culture and sensitivity.
[2015-11-17] MEDS: Albuterol-Ipratrop 3 mg / 0.5 (3 ml) UD INH SCH ×4 (01:00→19:02)
[2015-11-17 07:42] LABS: MEAN CELL VOLUME 93.1 fL (80.0-94.0); MEAN CORPUSCULAR HEMOGLOBIN 31.2 pg (27.0-31.0); MEAN CORPUSCULAR HGB CONC 33.5 g/dL (33.0-37.0); MEAN PLATELET VOLUME 8.5 fL (7.2-11.7); RBC 3.84 Mil/uL (4.40-5.90); RED CELL DISTRIBUTION WIDTH 14.2 % (11.5-14.5); WHITE BLOOD COUNT 9.2 K/uL (4.8-10.8)
[2015-11-17] MEDS: cefTRIAXone IV 1 gm in Dextros 50 ML IVPB SCH (09:37)
[2015-11-17] MEDS: Phenytoin 100 mg/4 ml Oral Susp UD PEG SCH ×3 (09:37→17:21)
--- NOTE | 2015-11-17 10:57 | CP.PCM.CON ---
History of Present Illness - History of Present Illness History of Present Illness: CC: GI consult for rectal bleed HPI: 65 year old man here since admission in May, has Tracheostomy and PEG for Anoxic encephalopathy. Patient is on numerous anticoagulants including plavix, Lovenox, and Aspirin for neurologic purposes. He was found by the aide to have BRBPR last night when cleaned. No recurrence since then. Hgb is stable. Review of Systems - Review of Systems Systems not reviewed;Unavailable: Intubated Past Patient History - Tetanus Immunizations Tetanus Immunization: Unknown - Past Medical History & Family History Past Medical History?: Yes - Past Social History Smoking Status: Never Smoked Alcohol: None Drugs: Denies - CARDIAC Hx Cardiac Disorders: Yes (unknown condition diagnosed in [place] 15 years ago) - MUSCULOSKELETAL/RHEUMATOLOGICAL Hx Falls: Yes - PSYCHIATRIC Hx Substance Use: No - ANESTHESIA Hx Anesthesia: No Hx Anesthesia Reactions: No Hx Malignant Hyperthermia: No Has any member of the family had a problem w/ anesthesia?: No Meds Allergies/Adverse Reactions: Allergies Allergy/AdvReac Type Severity Reaction Status Date / Time No Known Allergies Allergy Unverified 06/13/15 20:57 - Medications Medications: Current Medications Albuterol/Ipratropium (Duoneb 3 Mg/0.5 Mg (3 Ml) Ud) 3 ml INH RQ6 [facility] Last Admin: 11/17/15 07:44 Dose: 3 ml Aspirin (Aspirin) 325 mg PO DAILY [facility] Last Admin: 11/16/15 09:53 Dose: 325 mg Clopidogrel Bisulfate (Plavix) 75 mg PO DAILY [facility] Last Admin: 11/16/15 09:53 Dose: 75 mg Enoxaparin Sodium (Lovenox) 40 mg SC DAILY [facility] Last Admin: 11/16/15 09:53 Dose: 40 mg Ceftriaxone Sodium (Rocephin Iv 1 Gm Duplex) 50 mls @ 100 mls/hr IVPB DAILY [facility] Last Admin: 11/17/15 09:37 Dose: 100 mls/hr Lisinopril (Zestril) 5 mg PO DAILY [facility] Last Admin: 11/17/15 09:37 Dose: 5 mg Phenytoin (Dilantin) 100 mg PEG TID [facility] Last Admin: 11/17/15 09:37 Dose: 100 mg Polyethylene Glycol (Miralax) 17 gm PEG BID [facility] Last Admin: 08/21/15 11:26 Dose: Not Given Physical Exam - Constitutional Appears: Chronically Ill Additional comments: Sedated, tracheostomy - Cardiovascular Exam Cardiovascular Exam: REGULAR RHYTHM - GI/Abdominal Exam GI & Abdominal Exam: Soft. absent: Tenderness (GTube) - Rectal Exam Additional comments: Loose green colored stool without masses or blood. escorted by CARLOS Richardson. - Neurological Exam Neurological exam: Altered Results - Vital Signs Recent Vital Signs: Last Vital Signs Temp 98.3 F 11/17/15 05:19 Pulse 96 H 11/17/15 07:42 Resp 18 11/17/15 05:19 BP 108/64 11/17/15 05:19 Pulse Ox 100 11/17/15 05:19 - Labs Result Diagrams: 11/17/15 07:32 11/16/15 07:13 Labs: Laboratory Results - last 24 hr 11/17/15 07:32 WBC 9.2 RBC 3.84 L Hgb 12.0 Hct 35.7 MCV 93.1 MCH 31.2 H MCHC 33.5 RDW 14.2 Plt Count 311 MPV 8.5 Assessment/Plan (1) Anoxic encephalopathy Current Visit: Yes Status: Acute Comment: No acute change in mental status patient with trach in place pending placement- Family agreed to check out placement. s/p PEG (2) Blood in stool Current Visit: Yes Status: Acute Comment: Self limited episode. GARTH shows loose green stool without masses or blood present. recommend: check CDiff, start Pepcid for GI prophylaxis, may restart Lovenox for now - Date & Time Date: 11/17/15 Time: 11:01
[2015-11-17] MEDS: Lactobacillus Acidophilus 500 MU Cap PO SCH (17:21)
[2015-11-18] MEDS: Albuterol-Ipratrop 3 mg / 0.5 (3 ml) UD INH SCH ×4 (01:03→19:12)
--- NOTE | 2015-11-18 05:13 | CP.PCM.PN ---
<Scout Marinelli - Last Filed: 11/18/15 05:10> Subjective - Subjective Subjective: Pt seen and examined at bedside. Alert but no following Mandarin commands. Per RN pt has no more bloody BM and C.diff was sent. Urine culture positive for gram negative rods, currently on Rocephin. Will restart ASA and Plavix today. Review of Systems - Review of Systems Systems not reviewed;Unavailable: Acuity of Condition Objective - Vital Signs/Intake and Output Vital Signs (last 24 hours): Vital Signs - 24 hr 11/17/15 11/17/15 11/17/15 05:19 07:42 13:22 Temperature 98.3 F 98.5 F Pulse Rate 96 H 96 H 99 H Respiratory 18 20 Rate Blood Pressure 108/64 115/72 O2 Sat by Pulse 100 100 Oximetry 11/17/15 21:27 Temperature 98.9 F Pulse Rate 93 H Respiratory 19 Rate Blood Pressure 118/77 O2 Sat by Pulse 97 Oximetry Intake and Output (last 12 hours): Intake & Output 11/17/15 11/17/15 11/18/15 06:59 18:59 06:59 Intake Total 1750 Output Total 1050 900 300 Balance -1050 850 -300 Intake: Intake, IV Amount 50 Left Hand 50 Tube Feeding 1700 Output: Urine 1050 900 300 Urethral (Yoo) 1050 900 300 Other: # Bowel Movements 2 1 - Medications Medications: Current Medications Albuterol/Ipratropium (Duoneb 3 Mg/0.5 Mg (3 Ml) Ud) 3 ml INH RQ6 [facility] Last Admin: 11/18/15 01:03 Dose: 3 ml Aspirin (Aspirin) 325 mg PO DAILY [facility] Last Admin: 11/16/15 09:53 Dose: 325 mg Clopidogrel Bisulfate (Plavix) 75 mg PO DAILY [facility] Last Admin: 11/16/15 09:53 Dose: 75 mg Enoxaparin Sodium (Lovenox) 40 mg SC DAILY [facility] Last Admin: 11/16/15 09:53 Dose: 40 mg Famotidine (Pepcid) 20 mg IVP Q12 [facility] Last Admin: 11/17/15 21:24 Dose: 20 mg Ceftriaxone Sodium (Rocephin Iv 1 Gm Duplex) 50 mls @ 100 mls/hr IVPB DAILY [facility] Last Admin: 11/17/15 09:37 Dose: 100 mls/hr Lactobacillus Acidophilus (Bacid Acidophilus) 1 cap PO BID [facility] Last Admin: 11/17/15 17:21 Dose: 1 cap Lisinopril (Zestril) 5 mg PO DAILY [facility] Last Admin: 11/17/15 09:37 Dose: 5 mg Phenytoin (Dilantin) 100 mg PEG TID [facility] Last Admin: 11/17/15 17:21 Dose: 100 mg Polyethylene Glycol (Miralax) 17 gm PEG BID [facility] Last Admin: 08/21/15 11:26 Dose: Not Given - Labs Labs (last 24 hours): Laboratory Results - last 24 hr 11/17/15 07:32 WBC 9.2 RBC 3.84 L Hgb 12.0 Hct 35.7 MCV 93.1 MCH 31.2 H MCHC 33.5 RDW 14.2 Plt Count 311 MPV 8.5 - Constitutional Appears: Non-toxic, No Acute Distress - Head Exam Head Exam: NORMAL INSPECTION, NORMOCEPHALIC - Eye Exam Eye Exam: Normal appearance, PERRL Pupil Exam: NORMAL ACCOMODATION - Respiratory Exam Respiratory Exam: Clear to PA & Lateral, NORMAL BREATHING PATTERN - Cardiovascular Exam Cardiovascular Exam: REGULAR RHYTHM, +S1, +S2 - GI/Abdominal Exam GI & Abdominal Exam: Normal Bowel Sounds, Soft - Neurological Exam Neurological exam: Alert, Altered - Psychiatric Exam Psychiatric exam: Normal Affect - Skin Skin Exam: Dry, Intact Assessment/Plan (1) Blood in stool Current Visit: Yes Status: Acute Comment: Resolved for now. Will restart ASA and Plavix today. F/U C.diff result. (2) UTI (lower urinary tract infection) Current Visit: Yes Status: Resolved Comment: 11/18: urine positive for gram negative rods, currently on Rocephin. Afebrile and WBC WNL. F/U final result. 09/23: Flagyl discontinued 09/17: urine Cx negative 09/11: Urine Cx pseudomonas - started zosyn 3.375 gm IVPB Q8H (day #12) Afebrile overnight. WBC on :13.4 ID on case- Dr. Armstrong - help very much appreciated (3) Bed sore Current Visit: Yes Status: Acute Comment: 11/16: Continue current management of wound care. 11/15: Continue wound care, sensicare and medihoney. 11/13: Continue to improve. Continue wound care, [facility]icare and medihoney. 11/09: Continue wound care. 11/06: Visualized today. Continue wound care. 11/02: Continue wound care. Will check 1x a week. 10/23: Improving, continue wound care. 10/22: -wound care following patient 10/19: -examined today -continue treatment with [facility] and Med[facility] as per Wound Care 10/12--> cont LWC as per Plastic and Wound care team 10/10: Wound care recommendations: S[facility] to buttocks around ulcer, MediHoney to necrotic tissue, Position Q2 hours, Recall when necrotic tissue is soft/loose for debridement 10/09: sacral ulcer, stage [address]. Panchal consulted, f/u recommendations 08/09- stage one ulcer, healed, per nursing. continue repositioning of patient q2H dolphin mattress (4) Anoxic encephalopathy Current Visit: Yes Status: Acute Comment: No acute change in mental status patient with trach in place pending placement- Family agreed to check out placement. s/p PEG (5) Leukocytosis Current Visit: Yes Status: Acute Comment: No Leukocytosis as of 11/16. 11/15 CXR- No active disease. No significant interval change since last CXR on 10/20. F/U UA Monitor (6) Seizures Current Visit: Yes Status: Acute Comment: Continue dilantin 100mg via PEG TID (7) Respiratory failure Current Visit: Yes Status: Acute Comment: off vent s/p trach and PEG pending placement (8) Prophylactic measure Current Visit: Yes Status: Acute Comment: Lovenox on hold SCDs <Donnell Ying - Last Filed: 11/18/15 14:03> Objective - Vital Signs/Intake and Output Vital Signs (last 24 hours): Vital Signs - 24 hr 11/17/15 11/18/15 11/18/15 21:27 06:22 08:25 Temperature 98.9 F 97.7 F Pulse Rate 93 H 81 81 Respiratory 19 19 Rate Blood Pressure 118/77 115/77 O2 Sat by Pulse 97 100 Oximetry 11/18/15 13:57 Temperature 98.5 F Pulse Rate 98 H Respiratory 20 Rate Blood Pressure 111/71 O2 Sat by Pulse 100 Oximetry Intake and Output (last 12 hours): Intake & Output 11/17/15 11/18/15 11/18/15 18:59 06:59 18:59 Intake Total 1750 950 Output Total 790 241 7468 Balance 850 190 -1100 Intake: Intake, IV Amount 50 Left Hand 50 Tube Feeding 1700 950 Output: Gastric Amount 10 Stomach 10 Urine 289 620 2760 Urethral (Yoo) 828 056 1152 Other: # Bowel Movements 2 1 - Medications Medications: Current Medications Albuterol/Ipratropium (Duoneb 3 Mg/0.5 Mg (3 Ml) Ud) 3 ml INH RQ6 [facility] Last Admin: 11/18/15 07:31 Dose: 3 ml Aspirin (Aspirin) 325 mg PO DAILY [facility] Last Admin: 11/18/15 13:09 Dose: 325 mg Clopidogrel Bisulfate (Plavix) 75 mg PO DAILY [facility] Last Admin: 11/18/15 13:09 Dose: 75 mg Enoxaparin Sodium (Lovenox) 40 mg SC DAILY [facility] Last Admin: 11/18/15 09:26 Dose: 40 mg Famotidine (Pepcid) 20 mg IVP Q12 [facility] Last Admin: 11/18/15 09:26 Dose: 20 mg Ceftriaxone Sodium (Rocephin Iv 1 Gm Duplex) 50 mls @ 100 mls/hr IVPB DAILY [facility] Last Admin: 11/18/15 09:27 Dose: 100 mls/hr Lactobacillus Acidophilus (Bacid Acidophilus) 1 cap PO BID [facility] Last Admin: 11/18/15 09:26 Dose: 1 cap Lisinopril (Zestril) 5 mg PO DAILY [facility] Last Admin: 11/18/15 09:26 Dose: 5 mg Phenytoin (Dilantin) 100 mg PEG TID [facility] Last Admin: 11/18/15 13:08 Dose: 100 mg Polyethylene Glycol (Miralax) 17 gm PEG BID [facility] Last Admin: 08/21/15 11:26 Dose: Not Given - Labs Labs (last 24 hours): Laboratory Results - last 24 hr 11/17/15 12:00 C. difficile Ag & Toxin Negative Attending/Attestation - Attestation I have personally seen and examined this patient.: Yes I have fully participated in the care of the patient.: Yes I have reviewed all pertinent clinical information: Yes Notes (Text): 11/18/15 14:01 Patient seen and examined with the resident at bedside. No further episode of bleeding per rectum. Patient is started on aspirin and Plavix. C. difficile negative. Urine culture is reviewed. Positive for Klebsiella. Sensitive to Rocephin. Continue Rocephin for UTI. Local wound care for decubitus ulcer as per wound care team. Frequent done and position.
[2015-11-18] MEDS: Lactobacillus Acidophilus 500 MU Cap PO SCH ×2 (09:26→17:16)
[2015-11-18] MEDS: Phenytoin 100 mg/4 ml Oral Susp UD PEG SCH ×3 (09:26→17:17)
[2015-11-18] MEDS: Enoxaparin 40 mg Syringe SC SCH (09:26)
[2015-11-18] MEDS: cefTRIAXone IV 1 gm in Dextros 50 ML IVPB SCH (09:27)
[2015-11-19] MEDS: Albuterol-Ipratrop 3 mg / 0.5 (3 ml) UD INH SCH ×4 (01:02→20:45)
[2015-11-19 07:16] LABS: BASO # 0.1 K/uL (0.0-0.2); BASO % 0.7 % (0.0-2.0); EOS # 1.8 K/uL (0.0-0.7); EOS % 19.5 % (0.0-4.0); LYMPH # 1.2 K/uL (1.0-4.3); LYMPH % 12.2 % (20.0-40.0); MEAN CELL VOLUME 92.5 fL (80.0-94.0); MEAN CORPUSCULAR HGB CONC 33.5 g/dL (33.0-37.0); MEAN PLATELET VOLUME 8.5 fL (7.2-11.7); MONO # 0.9 K/uL (0.0-0.8); MONO % 9.3 % (0.0-10.0); NEUT # 5.5 K/uL (1.8-7.0); NEUT % 58.3 % (50.0-75.0); RBC 3.86 Mil/uL (4.40-5.90); RED CELL DISTRIBUTION WIDTH 14.1 % (11.5-14.5); WHITE BLOOD COUNT 9.4 K/uL (4.8-10.8)
[2015-11-19 07:30] LABS: ALBUMIN 3.5 g/dL (3.5-5.0)
[2015-11-19 07:33] LABS: ALB/GLOB RATIO 0.9 (1.0-2.1); AST/SGOT 42 U/L (17-59); BLOOD UREA NITROGEN 19 mg/dL (9-20); GFR NON-AFRICAN AMERICAN > 60
[2015-11-19 07:34] LABS: ALT/SGPT 76 U/L (21-72)
[2015-11-19] MEDS: Phenytoin 100 mg/4 ml Oral Susp UD PEG SCH ×3 (10:27→17:37)
[2015-11-19] MEDS: Enoxaparin 40 mg Syringe SC SCH (10:27)
[2015-11-19] MEDS: Lactobacillus Acidophilus 500 MU Cap PO SCH ×2 (10:27→17:36)
[2015-11-19] MEDS: cefTRIAXone IV 1 gm in Dextros 50 ML IVPB SCH (10:29)
--- NOTE | 2015-11-19 10:50 | CP.PCM.PN ---
<Scout Marinelli - Last Filed: 11/19/15 13:48> Subjective - Subjective Subjective: Pt seen and examined at bedside this morning. Pt status unchanged, unable to provide ROS and not responding to Mandarin commands. Per RN pt had yellow pasty BM which is normal for him. Per social work, will have family meeting this week. Review of Systems - Review of Systems Systems not reviewed;Unavailable: Acuity of Condition Objective - Vital Signs/Intake and Output Vital Signs (last 24 hours): Vital Signs - 24 hr 11/18/15 11/18/15 11/19/15 13:57 21:32 05:49 Temperature 98.5 F 97.9 F 98.0 F Pulse Rate 98 H 84 81 Respiratory 20 20 18 Rate Blood Pressure 111/71 107/74 110/71 O2 Sat by Pulse 100 99 99 Oximetry Intake and Output (last 12 hours): Intake & Output 11/18/15 11/19/15 11/19/15 18:59 06:59 18:59 Intake Total 850 Output Total 1100 300 Balance -250 -300 Intake: Intake, IV Amount 50 Left Hand 50 Tube Feeding 800 Output: Urine 1100 300 Urethral (Yoo) 1100 300 - Medications Medications: Current Medications Albuterol/Ipratropium (Duoneb 3 Mg/0.5 Mg (3 Ml) Ud) 3 ml INH RQ6 [facility] Last Admin: 11/19/15 07:12 Dose: 3 ml Aspirin (Aspirin) 325 mg PO DAILY [facility] Last Admin: 11/19/15 10:27 Dose: 325 mg Clopidogrel Bisulfate (Plavix) 75 mg PO DAILY [facility] Last Admin: 11/19/15 10:27 Dose: 75 mg Enoxaparin Sodium (Lovenox) 40 mg SC DAILY [facility] Last Admin: 11/19/15 10:27 Dose: 40 mg Famotidine (Pepcid) 20 mg IVP Q12 [facility] Last Admin: 11/19/15 10:28 Dose: 20 mg Ceftriaxone Sodium (Rocephin Iv 1 Gm Duplex) 50 mls @ 100 mls/hr IVPB DAILY [facility] Last Admin: 11/19/15 10:29 Dose: 100 mls/hr Lactobacillus Acidophilus (Bacid Acidophilus) 1 cap PO BID [facility] Last Admin: 11/19/15 10:27 Dose: 1 cap Lisinopril (Zestril) 5 mg PO DAILY [facility] Last Admin: 11/19/15 10:27 Dose: 5 mg Phenytoin (Dilantin) 100 mg PEG TID [facility] Last Admin: 11/19/15 10:27 Dose: 100 mg Polyethylene Glycol (Miralax) 17 gm PEG BID [facility] Last Admin: 08/21/15 11:26 Dose: Not Given - Labs Labs (last 24 hours): Laboratory Results - last 24 hr 11/17/15 11/19/15 12:00 06:43 WBC 9.4 RBC 3.86 L Hgb 12.0 Hct 35.7 MCV 92.5 MCH 31.0 MCHC 33.5 RDW 14.1 Plt Count 309 MPV 8.5 Neut % (Auto) 58.3 Lymph % (Auto) 12.2 L Hand % (Auto) 9.3 Eos % (Auto) 19.5 H Baso % (Auto) 0.7 Neut # 5.5 Lymph # 1.2 Hand # 0.9 H Eos # 1.8 H Baso # 0.1 Sodium 139 Potassium 4.5 Chloride 100 Carbon Dioxide 30 Anion Gap 13 BUN 19 Creatinine 0.5 L Est GFR ( Amer) > 60 Est GFR (Non-Af Amer) > 60 Random Glucose 156 H Calcium 9.0 Total Bilirubin 0.2 AST 42 ALT 76 H D Alkaline Phosphatase 104 Total Protein 7.3 Albumin 3.5 Globulin 3.8 Albumin/Globulin Ratio 0.9 L C. difficile Ag & Toxin Negative - Constitutional Appears: Non-toxic, No Acute Distress - Head Exam Head Exam: NORMAL INSPECTION, NORMOCEPHALIC - Eye Exam Eye Exam: Normal appearance Pupil Exam: NORMAL ACCOMODATION - Respiratory Exam Respiratory Exam: Rales, Rhonchi, NORMAL BREATHING PATTERN - Cardiovascular Exam Cardiovascular Exam: REGULAR RHYTHM, +S1, +S2. absent: Gallop, Rubs - GI/Abdominal Exam GI & Abdominal Exam: Normal Bowel Sounds, Soft - Neurological Exam Neurological exam: Altered - Skin Additional comments: rash bilateral thighs Assessment/Plan (1) UTI (lower urinary tract infection) Current Visit: Yes Status: Resolved Comment: 11/19: urine grew Klebsiella pneumoniae, sensative to Rocephin. Afebrile, WBC WNL. Continue current management. 11/18: urine positive for gram negative rods, currently on Rocephin. Afebrile and WBC WNL. F/U final result. 09/23: Flagyl discontinued 09/17: urine Cx negative 09/11: Urine Cx pseudomonas - started zosyn 3.375 gm IVPB Q8H (day #12) Afebrile overnight. WBC on :13.4 ID on case- Dr. Arsmtrong - help very much appreciated (2) Blood in stool Current Visit: Yes Status: Acute Comment: Resolved for now. C.diff negative ASA and Plavix resumed . (3) Bed sore Current Visit: Yes Status: Acute Comment: 11/19: Continue wound care and current management. 11/16: Continue current management of wound care. 11/15: Continue wound care, [facility] and [facility]ihoney. 11/13: Continue to improve. Continue wound care, [facility] and medihoney. 11/09: Continue wound care. 11/06: Visualized today. Continue wound care. 11/02: Continue wound care. Will check 1x a week. 10/23: Improving, continue wound care. 10/22: -wound care following patient 10/19: -examined today -continue treatment with [facility] and Medih[facility] as per Wound Care 10/12--> cont LWC as per Plastic and Wound care team 10/10: Wound care recommendations: S[facility] to buttocks around ulcer, MediHoney to necrotic tissue, Position Q2 hours, Recall when necrotic tissue is soft/loose for debridement 10/09: sacral ulcer, stage [address] Dr. Panchal consulted, f/u recommendations 08/09- stage one ulcer, healed, per nursing. continue repositioning of patient q2H dolphin mattress (4) Anoxic encephalopathy Current Visit: Yes Status: Acute Comment: No acute change in mental status patient with trach in place pending placement- Family agreed to check out placement. s/p PEG (5) Leukocytosis Current Visit: Yes Status: Acute Comment: No Leukocytosis as of 11/16. 11/15 CXR- No active disease. No significant interval change since last CXR on 10/20. F/U UA Monitor (6) Seizures Current Visit: Yes Status: Acute Comment: Continue dilantin 100mg via PEG TID (7) Respiratory failure Current Visit: Yes Status: Acute Comment: off vent s/p trach and PEG pending placement (8) Prophylactic measure Current Visit: Yes Status: Acute Comment: Lovenox, Pepcid, SCDs <Amandeep Chavis H - Last Filed: 11/19/15 13:51> Objective - Vital Signs/Intake and Output Vital Signs (last 24 hours): Vital Signs - 24 hr 11/18/15 11/18/15 11/19/15 13:57 21:32 05:49 Temperature 98.5 F 97.9 F 98.0 F Pulse Rate 98 H 84 81 Respiratory 20 20 18 Rate Blood Pressure 111/71 107/74 110/71 O2 Sat by Pulse 100 99 99 Oximetry Intake and Output (last 12 hours): Intake & Output 11/18/15 11/19/15 11/19/15 18:59 06:59 18:59 Intake Total 850 Output Total 1100 300 Balance -250 -300 Intake: Intake, IV Amount 50 Left Hand 50 Tube Feeding 800 Output: Urine 1100 300 Urethral (Yoo) 1100 300 - Medications Medications: Current Medications Albuterol/Ipratropium (Duoneb 3 Mg/0.5 Mg (3 Ml) Ud) 3 ml INH RQ6 [facility] Last Admin: 11/19/15 07:12 Dose: 3 ml Aspirin (Aspirin) 325 mg PO DAILY [facility] Last Admin: 11/19/15 10:27 Dose: 325 mg Clopidogrel Bisulfate (Plavix) 75 mg PO DAILY [facility] Last Admin: 11/19/15 10:27 Dose: 75 mg Enoxaparin Sodium (Lovenox) 40 mg SC DAILY [facility] Last Admin: 11/19/15 10:27 Dose: 40 mg Famotidine (Pepcid) 20 mg IVP Q12 [facility] Last Admin: 11/19/15 10:28 Dose: 20 mg Ceftriaxone Sodium (Rocephin Iv 1 Gm Duplex) 50 mls @ 100 mls/hr IVPB DAILY [facility] Last Admin: 11/19/15 10:29 Dose: 100 mls/hr Lactobacillus Acidophilus (Bacid Acidophilus) 1 cap PO BID [facility] Last Admin: 11/19/15 10:27 Dose: 1 cap Lisinopril (Zestril) 5 mg PO DAILY [facility] Last Admin: 11/19/15 10:27 Dose: 5 mg Phenytoin (Dilantin) 100 mg PEG TID [facility] Last Admin: 11/19/15 10:27 Dose: 100 mg Polyethylene Glycol (Miralax) 17 gm PEG BID [facility] Last Admin: 08/21/15 11:26 Dose: Not Given - Labs Labs (last 24 hours): Laboratory Results - last 24 hr 11/19/15 06:43 WBC 9.4 RBC 3.86 L Hgb 12.0 Hct 35.7 MCV 92.5 MCH 31.0 MCHC 33.5 RDW 14.1 Plt Count 309 MPV 8.5 Neut % (Auto) 58.3 Lymph % (Auto) 12.2 L Hand % (Auto) 9.3 Eos % (Auto) 19.5 H Baso % (Auto) 0.7 Neut # 5.5 Lymph # 1.2 Hand # 0.9 H Eos # 1.8 H Baso # 0.1 Sodium 139 Potassium 4.5 Chloride 100 Carbon Dioxide 30 Anion Gap 13 BUN 19 Creatinine 0.5 L Est GFR ( Amer) > 60 Est GFR (Non-Af Amer) > 60 Random Glucose 156 H Calcium 9.0 Total Bilirubin 0.2 AST 42 ALT 76 H D Alkaline Phosphatase 104 Total Protein 7.3 Albumin 3.5 Globulin 3.8 Albumin/Globulin Ratio 0.9 L Assessment/Plan (1) Respiratory failure Current Visit: Yes Status: Acute Comment: off vent s/p trach and PEG pending placement (2) Anoxic encephalopathy Current Visit: Yes Status: Acute Comment: No acute change in mental status patient with trach in place pending placement- Family agreed to check out placement. s/p PEG (3) STEMI (ST elevation myocardial infarction) Current Visit: Yes Status: Acute Comment: cardiac stents on 06/13/15. Continue Lisinopril 5mg PO daily Continue Plavix 75mg PO daily Continue ASA 325mg PO daily (4) Cardiac arrest Current Visit: Yes Status: Acute Comment: s/p V-Tach arrest Continue ASA 325mg PO daily Continue Plavix 75mg PO daily Continue Lisinopril 5mg PO daily s/p trach and PEG (5) Seizures Current Visit: Yes Status: Acute Comment: Continue dilantin 100mg via PEG TID (6) Prophylactic measure Current Visit: Yes Status: Acute Comment: Stephan Gilliland SCDs Attending/Attestation - Attestation I have personally seen and examined this patient.: Yes I have fully participated in the care of the patient.: Yes I have reviewed all pertinent clinical information: Yes Notes (Text): 12/28/15 13:50 Medical attending: Patient was seen and examined by me, unfortunately there is not a great deal of change from before. Currently waiting on placement at this time. He does have on his back pressure ulcers is noted from before. He is currently on a trach collar at this time. thank you, Amandeep Chavis
[2015-11-20] MEDS: Albuterol-Ipratrop 3 mg / 0.5 (3 ml) UD INH SCH ×4 (01:01→19:11)
[2015-11-20] MEDS: Phenytoin 100 mg/4 ml Oral Susp UD PEG SCH ×3 (10:00→17:18)
[2015-11-20] MEDS: Enoxaparin 40 mg Syringe SC SCH (10:32)
[2015-11-20] MEDS: cefTRIAXone IV 1 gm in Dextros 50 ML IVPB SCH (10:32)
[2015-11-20] MEDS: Lactobacillus Acidophilus 500 MU Cap PO SCH ×2 (10:43→17:19)
--- NOTE | 2015-11-20 15:11 | CP.PCM.PN ---
<Scout Marinelli - Last Filed: 11/20/15 15:03> Subjective - Subjective Subjective: Pt seen and examined at bedside. No change in mental status, unable to follow command in Mandarin. ROS unattainable. Per pt's cousin in law, pt's daughter's integrity analyst made unauthorize contact with the hospital and it is the pt's family wish that no legal action to be taken. Review of Systems - Review of Systems Systems not reviewed;Unavailable: Altered Mental Status Objective - Vital Signs/Intake and Output Vital Signs (last 24 hours): Vital Signs - 24 hr 11/19/15 11/20/15 11/20/15 21:56 05:39 11:46 Temperature 99.0 F 99.5 F Pulse Rate 103 H 98 H 98 H Respiratory 18 18 Rate Blood Pressure 142/89 117/77 O2 Sat by Pulse 98 99 Oximetry 11/20/15 14:48 Temperature 98.6 F Pulse Rate 99 H Respiratory 20 Rate Blood Pressure 102/64 O2 Sat by Pulse 97 Oximetry Intake and Output (last 12 hours): Intake & Output 11/19/15 11/20/15 11/20/15 18:59 06:59 18:59 Intake Total 950 Output Total 610 Balance 340 Intake: Tube Feeding 950 Output: Gastric Amount 10 Stomach 10 Urine 600 Urethral (Yoo) 600 - Medications Medications: Current Medications Albuterol/Ipratropium (Duoneb 3 Mg/0.5 Mg (3 Ml) Ud) 3 ml INH RQ6 [facility] Last Admin: 11/20/15 14:13 Dose: 3 ml Aspirin (Aspirin) 325 mg PO DAILY [facility] Last Admin: 11/20/15 10:31 Dose: 325 mg Clopidogrel Bisulfate (Plavix) 75 mg PO DAILY [facility] Last Admin: 11/20/15 10:32 Dose: 75 mg Enoxaparin Sodium (Lovenox) 40 mg SC DAILY [facility] Last Admin: 11/20/15 10:32 Dose: 40 mg Famotidine (Pepcid) 20 mg IVP Q12 [facility] Last Admin: 11/20/15 10:32 Dose: 20 mg Ceftriaxone Sodium (Rocephin Iv 1 Gm Duplex) 50 mls @ 100 mls/hr IVPB DAILY [facility] Last Admin: 11/20/15 10:32 Dose: 100 mls/hr Lactobacillus Acidophilus (Bacid Acidophilus) 1 cap PO BID [facility] Last Admin: 11/20/15 10:43 Dose: 1 cap Lisinopril (Zestril) 5 mg PO DAILY [facility] Last Admin: 11/20/15 10:31 Dose: 5 mg Phenytoin (Dilantin) 100 mg PEG TID [facility] Last Admin: 11/20/15 13:22 Dose: 100 mg Polyethylene Glycol (Miralax) 17 gm PEG BID [facility] Last Admin: 08/21/15 11:26 Dose: Not Given - Constitutional Appears: Non-toxic, No Acute Distress - Head Exam Head Exam: NORMAL INSPECTION, NORMOCEPHALIC - Eye Exam Eye Exam: Normal appearance Pupil Exam: NORMAL ACCOMODATION - Respiratory Exam Respiratory Exam: Rales, Rhonchi, NORMAL BREATHING PATTERN - Cardiovascular Exam Cardiovascular Exam: REGULAR RHYTHM, +S1, +S2. absent: Gallop, Rubs - GI/Abdominal Exam GI & Abdominal Exam: Normal Bowel Sounds, Soft - Neurological Exam Neurological exam: Altered - Psychiatric Exam Psychiatric exam: Normal Affect - Skin Skin Exam: Intact Assessment/Plan (1) UTI (lower urinary tract infection) Current Visit: Yes Status: Resolved Comment: 11/20: Continue current managment. 11/19: urine grew Klebsiella pneumoniae, sensative to Rocephin. Afebrile, WBC WNL. Continue current management. 11/18: urine positive for gram negative rods, currently on Rocephin. Afebrile and WBC WNL. F/U final result. 09/23: Flagyl discontinued 09/17: urine Cx negative 09/11: Urine Cx pseudomonas - started zosyn 3.375 gm IVPB Q8H (day #12) Afebrile overnight. WBC on :13.4 ID on case- Dr. Armstrong - help very much appreciated (2) Blood in stool Current Visit: Yes Status: Acute Comment: Resolved for now. C.diff negative ASA and Plavix resumed . (3) Bed sore Current Visit: Yes Status: Acute Comment: 11/19: Continue wound care and current management. 11/16: Continue current management of wound care. 11/15: Continue wound care, sensicare and medihoney. 11/13: Continue to improve. Continue wound care, sensicare and medihoney. 11/09: Continue wound care. 11/06: Visualized today. Continue wound care. 11/02: Continue wound care. Will check 1x a week. 10/23: Improving, continue wound care. 10/22: -wound care following patient 10/19: -examined today -continue treatment with Sensicare and Medihoney as per Wound Care 10/12--> cont LWC as per Plastic and Wound care team 10/10: Wound care recommendations: SensiCare to buttocks around ulcer, MediHoney to necrotic tissue, Position Q2 hours, Recall when necrotic tissue is soft/loose for debridement 10/09: sacral ulcer, stage [address] Dr. Panchal consulted, f/u recommendations 08/09- stage one ulcer, healed, per nursing. continue repositioning of patient q2H dolphin mattress (4) Anoxic encephalopathy Current Visit: Yes Status: Acute Comment: No acute change in mental status patient with trach in place pending placement- Family agreed to check out placement. s/p PEG (5) Leukocytosis Current Visit: Yes Status: Acute Comment: No Leukocytosis as of 11/16. 11/15 CXR- No active disease. No significant interval change since last CXR on 10/20. F/U UA Monitor (6) Seizures Current Visit: Yes Status: Acute Comment: Continue dilantin 100mg via PEG TID (7) Respiratory failure Current Visit: Yes Status: Acute Comment: off vent s/p trach and PEG pending placement (8) Prophylactic measure Current Visit: Yes Status: Acute Comment: Lovenox, Pepcid, SCDs <Amandeep Chavis H - Last Filed: 11/20/15 15:25> Objective - Vital Signs/Intake and Output Vital Signs (last 24 hours): Vital Signs - 24 hr 11/19/15 11/20/15 11/20/15 21:56 05:39 11:46 Temperature 99.0 F 99.5 F Pulse Rate 103 H 98 H 98 H Respiratory 18 18 Rate Blood Pressure 142/89 117/77 O2 Sat by Pulse 98 99 Oximetry 11/20/15 14:48 Temperature 98.6 F Pulse Rate 99 H Respiratory 20 Rate Blood Pressure 102/64 O2 Sat by Pulse 97 Oximetry Intake and Output (last 12 hours): Intake & Output 11/19/15 11/20/15 11/20/15 18:59 06:59 18:59 Intake Total 950 Output Total 610 Balance 340 Intake: Tube Feeding 950 Output: Gastric Amount 10 Stomach 10 Urine 600 Urethral (Yoo) 600 - Medications Medications: Current Medications Albuterol/Ipratropium (Duoneb 3 Mg/0.5 Mg (3 Ml) Ud) 3 ml INH RQ6 [facility] Last Admin: 11/20/15 14:13 Dose: 3 ml Aspirin (Aspirin) 325 mg PO DAILY [facility] Last Admin: 11/20/15 10:31 Dose: 325 mg Clopidogrel Bisulfate (Plavix) 75 mg PO DAILY [facility] Last Admin: 11/20/15 10:32 Dose: 75 mg Enoxaparin Sodium (Lovenox) 40 mg SC DAILY [facility] Last Admin: 11/20/15 10:32 Dose: 40 mg Famotidine (Pepcid) 20 mg IVP Q12 [facility] Last Admin: 11/20/15 10:32 Dose: 20 mg Ceftriaxone Sodium (Rocephin Iv 1 Gm Duplex) 50 mls @ 100 mls/hr IVPB DAILY [facility] Last Admin: 11/20/15 10:32 Dose: 100 mls/hr Lactobacillus Acidophilus (Bacid Acidophilus) 1 cap PO BID [facility] Last Admin: 11/20/15 10:43 Dose: 1 cap Lisinopril (Zestril) 5 mg PO DAILY [facility] Last Admin: 11/20/15 10:31 Dose: 5 mg Phenytoin (Dilantin) 100 mg PEG TID [facility] Last Admin: 11/20/15 13:22 Dose: 100 mg Polyethylene Glycol (Miralax) 17 gm PEG BID [facility] Last Admin: 08/21/15 11:26 Dose: Not Given Assessment/Plan (1) Respiratory failure Current Visit: Yes Status: Acute Comment: off vent s/p trach and PEG pending placement (2) Anoxic encephalopathy Current Visit: Yes Status: Acute Comment: No acute change in mental status patient with trach in place pending placement- Family agreed to check out placement. s/p PEG (3) STEMI (ST elevation myocardial infarction) Current Visit: Yes Status: Acute Comment: cardiac stents on 06/13/15. Continue Lisinopril 5mg PO daily Continue Plavix 75mg PO daily Continue ASA 325mg PO daily (4) Cardiac arrest Current Visit: Yes Status: Acute Comment: s/p V-Tach arrest Continue ASA 325mg PO daily Continue Plavix 75mg PO daily Continue Lisinopril 5mg PO daily s/p trach and PEG (5) Seizures Current Visit: Yes Status: Acute Comment: Continue dilantin 100mg via PEG TID (6) Prophylactic measure Current Visit: Yes Status: Acute Comment: Stephan Gilliland, SCDs Attending/Attestation - Attestation I have personally seen and examined this patient.: Yes I have fully participated in the care of the patient.: Yes I have reviewed all pertinent clinical information: Yes Notes (Text): 11/20/15 15:24 Medical attending: Patient was seen and examined by me, agree with the above note by front office medical assistant. At this time there is no changes, as before were currently waiting on replacement. He's currently getting PEG feedings as well as Rocephin for treating for UTI. Other than this he means on the trach collar and currently nonverbal Thank you very much, Amandeep Chavis
[2015-11-21] MEDS: Albuterol-Ipratrop 3 mg / 0.5 (3 ml) UD INH SCH ×4 (01:45→19:32)
[2015-11-21] MEDS: Enoxaparin 40 mg Syringe SC SCH (09:37)
[2015-11-21] MEDS: Phenytoin 100 mg/4 ml Oral Susp UD PEG SCH ×3 (09:37→17:11)
[2015-11-21] MEDS: Lactobacillus Acidophilus 500 MU Cap PO SCH ×2 (09:38→17:18)
[2015-11-21] MEDS: cefTRIAXone IV 1 gm in Dextros 50 ML IVPB SCH (09:39)
--- NOTE | 2015-11-21 13:41 | CP.PCM.PN ---
<Scout Marinelli - Last Filed: 11/21/15 13:39> Subjective - Subjective Subjective: Pt seen and examined at bedside this morning. Status unchanged, remains unresponsive to Mandarin. ROS unattainable. Review of Systems - Review of Systems Systems not reviewed;Unavailable: Acuity of Condition Objective - Vital Signs/Intake and Output Vital Signs (last 24 hours): Vital Signs - 24 hr 11/20/15 11/20/15 11/20/15 14:48 20:00 21:24 Temperature 98.6 F 98 F Pulse Rate 99 H 99 H 95 H Respiratory 20 20 Rate Blood Pressure 102/64 124/83 O2 Sat by Pulse 97 100 Oximetry 11/21/15 11/21/15 05:25 09:02 Temperature 99.2 F Pulse Rate 100 H 100 H Respiratory 20 Rate Blood Pressure 115/75 O2 Sat by Pulse 100 Oximetry Intake and Output (last 12 hours): Intake & Output 11/20/15 11/21/15 11/21/15 18:59 06:59 18:59 Intake Total 850 800 Output Total 700 700 Balance 150 100 Intake: Intake, IV Amount 50 Left Hand 50 Tube Feeding 800 800 Output: Urine 700 700 Urethral (Yoo) 700 700 Other: # Bowel Movements 1 0 - Medications Medications: Current Medications Albuterol/Ipratropium (Duoneb 3 Mg/0.5 Mg (3 Ml) Ud) 3 ml INH RQ6 [facility] Last Admin: 11/21/15 13:21 Dose: 3 ml Aspirin (Aspirin) 325 mg PO DAILY [facility] Last Admin: 11/21/15 09:38 Dose: 325 mg Clopidogrel Bisulfate (Plavix) 75 mg PO DAILY [facility] Last Admin: 11/21/15 09:38 Dose: 75 mg Enoxaparin Sodium (Lovenox) 40 mg SC DAILY [facility] Last Admin: 11/21/15 09:37 Dose: 40 mg Famotidine (Pepcid) 20 mg IVP Q12 [facility] Last Admin: 11/21/15 10:32 Dose: 20 mg Ceftriaxone Sodium (Rocephin Iv 1 Gm Duplex) 50 mls @ 100 mls/hr IVPB DAILY [facility] Last Admin: 11/21/15 09:39 Dose: 100 mls/hr Lactobacillus Acidophilus (Bacid Acidophilus) 1 cap PO BID [facility] Last Admin: 11/21/15 09:38 Dose: 1 cap Lisinopril (Zestril) 5 mg PO DAILY [facility] Last Admin: 11/21/15 09:38 Dose: 5 mg Phenytoin (Dilantin) 100 mg PEG TID [facility] Last Admin: 11/21/15 13:29 Dose: 100 mg Polyethylene Glycol (Miralax) 17 gm PEG BID [facility] Last Admin: 08/21/15 11:26 Dose: Not Given - Constitutional Appears: Non-toxic, No Acute Distress, Cachectic, Chronically Ill - Eye Exam Eye Exam: Normal appearance Pupil Exam: NORMAL ACCOMODATION - Respiratory Exam Respiratory Exam: Clear to PA & Lateral, NORMAL BREATHING PATTERN - Cardiovascular Exam Cardiovascular Exam: REGULAR RHYTHM, +S1, +S2. absent: Gallop, Rubs - GI/Abdominal Exam GI & Abdominal Exam: Normal Bowel Sounds - Neurological Exam Neurological exam: Altered - Skin Skin Exam: Normal Color Assessment/Plan (1) UTI (lower urinary tract infection) Current Visit: Yes Status: Resolved Comment: 11/21: Continue current management. 11/20: Continue current management. 11/19: urine grew Klebsiella pneumoniae, sensative to Rocephin. Afebrile, WBC WNL. Continue current management. 11/18: urine positive for gram negative rods, currently on Rocephin. Afebrile and WBC WNL. F/U final result. 09/23: Flagyl discontinued 09/17: urine Cx negative 09/11: Urine Cx pseudomonas - started zosyn 3.375 gm IVPB Q8H (day #12) Afebrile overnight. WBC on :13.4 ID on case- Dr. Armstrong - help very much appreciated (2) Bed sore Current Visit: Yes Status: Acute Comment: 11/19: Continue wound care and current management. 11/16: Continue current management of wound care. 11/15: Continue wound care, sensicare and medihoney. 11/13: Continue to improve. Continue wound care, sensicare and medihoney. 11/09: Continue wound care. 11/06: Visualized today. Continue wound care. 11/02: Continue wound care. Will check 1x a week. 10/23: Improving, continue wound care. 10/22: -wound care following patient 10/19: -examined today -continue treatment with Sensicare and Medihoney as per Wound Care 10/12--> cont LWC as per Plastic and Wound care team 10/10: Wound care recommendations: S[facility]iCare to buttocks around ulcer, MediHoney to necrotic tissue, Position Q2 hours, Recall when necrotic tissue is soft/loose for debridement 10/09: sacral ulcer, stage [address] Dr. Panchal consulted, f/u recommendations 08/09- stage one ulcer, healed, per nursing. continue repositioning of patient q2H dolphin mattress (3) Blood in stool Current Visit: Yes Status: Acute Comment: Resolved for now. C.diff negative ASA and Plavix resumed . (4) Anoxic encephalopathy Current Visit: Yes Status: Acute Comment: No acute change in mental status patient with trach in place pending placement- Family agreed to check out placement. s/p PEG (5) Leukocytosis Current Visit: Yes Status: Acute Comment: No Leukocytosis as of 11/16. 11/15 CXR- No active disease. No significant interval change since last CXR on 10/20. F/U UA Monitor (6) Seizures Current Visit: Yes Status: Acute Comment: Continue dilantin 100mg via PEG TID (7) Respiratory failure Current Visit: Yes Status: Acute Comment: off vent s/p trach and PEG pending placement (8) Prophylactic measure Current Visit: Yes Status: Acute Comment: Lovenox, Pepcid, SCDs <Amandeep Chavis H - Last Filed: 11/21/15 13:46> Objective - Vital Signs/Intake and Output Vital Signs (last 24 hours): Vital Signs - 24 hr 11/20/15 11/20/15 11/20/15 14:48 20:00 21:24 Temperature 98.6 F 98 F Pulse Rate 99 H 99 H 95 H Respiratory 20 20 Rate Blood Pressure 102/64 124/83 O2 Sat by Pulse 97 100 Oximetry 11/21/15 11/21/15 05:25 09:02 Temperature 99.2 F Pulse Rate 100 H 100 H Respiratory 20 Rate Blood Pressure 115/75 O2 Sat by Pulse 100 Oximetry Intake and Output (last 12 hours): Intake & Output 11/20/15 11/21/15 11/21/15 18:59 06:59 18:59 Intake Total 850 800 Output Total 700 700 Balance 150 100 Intake: Intake, IV Amount 50 Left Hand 50 Tube Feeding 800 800 Output: Urine 700 700 Urethral (Yoo) 700 700 Other: # Bowel Movements 1 0 - Medications Medications: Current Medications Albuterol/Ipratropium (Duoneb 3 Mg/0.5 Mg (3 Ml) Ud) 3 ml INH RQ6 [facility] Last Admin: 11/21/15 13:21 Dose: 3 ml Aspirin (Aspirin) 325 mg PO DAILY [facility] Last Admin: 11/21/15 09:38 Dose: 325 mg Clopidogrel Bisulfate (Plavix) 75 mg PO DAILY [facility] Last Admin: 11/21/15 09:38 Dose: 75 mg Enoxaparin Sodium (Lovenox) 40 mg SC DAILY [facility] Last Admin: 11/21/15 09:37 Dose: 40 mg Famotidine (Pepcid) 20 mg IVP Q12 [facility] Last Admin: 11/21/15 10:32 Dose: 20 mg Ceftriaxone Sodium (Rocephin Iv 1 Gm Duplex) 50 mls @ 100 mls/hr IVPB DAILY [facility] Last Admin: 11/21/15 09:39 Dose: 100 mls/hr Lactobacillus Acidophilus (Bacid Acidophilus) 1 cap PO BID [facility] Last Admin: 11/21/15 09:38 Dose: 1 cap Lisinopril (Zestril) 5 mg PO DAILY [facility] Last Admin: 11/21/15 09:38 Dose: 5 mg Phenytoin (Dilantin) 100 mg PEG TID [facility] Last Admin: 11/21/15 13:29 Dose: 100 mg Polyethylene Glycol (Miralax) 17 gm PEG BID [facility] Last Admin: 08/21/15 11:26 Dose: Not Given Assessment/Plan (1) Respiratory failure Current Visit: Yes Status: Acute Comment: off vent s/p trach and PEG pending placement (2) Anoxic encephalopathy Current Visit: Yes Status: Acute Comment: No acute change in mental status patient with trach in place pending placement- Family agreed to check out placement. s/p PEG (3) STEMI (ST elevation myocardial infarction) Current Visit: Yes Status: Acute Comment: cardiac stents on 06/13/15. Continue Lisinopril 5mg PO daily Continue Plavix 75mg PO daily Continue ASA 325mg PO daily (4) Cardiac arrest Current Visit: Yes Status: Acute Comment: s/p V-Tach arrest Continue ASA 325mg PO daily Continue Plavix 75mg PO daily Continue Lisinopril 5mg PO daily s/p trach and PEG (5) Seizures Current Visit: Yes Status: Acute Comment: Continue dilantin 100mg via PEG TID (6) Prophylactic measure Current Visit: Yes Status: Acute Comment: Stephan Gilliland, SCDs Attending/Attestation - Attestation I have personally seen and examined this patient.: Yes I have fully participated in the care of the patient.: Yes I have reviewed all pertinent clinical information: Yes Notes (Text): 11/21/15 13:45 Medical attending: Patient was seen and examined by me, agrees to above note by bio medical technician. At this time is no change in his status. Her currently waiting on placement at this time. He remains nonverbal, straight collar, and is receiving PEG feeds. Thank you very much Amandeep Chavis
[2015-11-22] MEDS: Albuterol-Ipratrop 3 mg / 0.5 (3 ml) UD INH SCH ×4 (01:29→20:27)
--- NOTE | 2015-11-22 07:10 | CP.PCM.PN ---
Objective - Vital Signs/Intake and Output Vital Signs (last 24 hours): Vital Signs - 24 hr 11/21/15 11/21/15 11/21/15 09:02 14:03 22:00 Temperature 98.5 F 99.5 F Pulse Rate 100 H 90 86 Respiratory 20 20 Rate Blood Pressure 116/76 113/76 O2 Sat by Pulse 98 100 Oximetry 11/22/15 07:02 Temperature 98.1 F Pulse Rate 93 H Respiratory 20 Rate Blood Pressure 169/77 H O2 Sat by Pulse 100 Oximetry Intake and Output (last 12 hours): Intake & Output 11/21/15 11/22/15 11/22/15 18:59 06:59 18:59 Intake Total 850 Output Total 1400 700 500 Balance -550 -700 -500 Intake: Intake, IV Amount 50 Left Hand 50 Tube Feeding 800 Output: Urine 1400 700 500 Urethral (Yoo) 1400 700 500 - Medications Medications: Current Medications Albuterol/Ipratropium (Duoneb 3 Mg/0.5 Mg (3 Ml) Ud) 3 ml INH RQ6 [facility] Last Admin: 11/22/15 01:29 Dose: 3 ml Aspirin (Aspirin) 325 mg PO DAILY [facility] Last Admin: 11/21/15 09:38 Dose: 325 mg Clopidogrel Bisulfate (Plavix) 75 mg PO DAILY [facility] Last Admin: 11/21/15 09:38 Dose: 75 mg Enoxaparin Sodium (Lovenox) 40 mg SC DAILY [facility] Last Admin: 11/21/15 09:37 Dose: 40 mg Famotidine (Pepcid) 20 mg PO BID [facility] Last Admin: 11/21/15 17:11 Dose: 20 mg Lactobacillus Acidophilus (Bacid Acidophilus) 1 cap PO BID [facility] Last Admin: 11/21/15 17:18 Dose: 1 cap Lisinopril (Zestril) 5 mg PO DAILY [facility] Last Admin: 11/21/15 09:38 Dose: 5 mg Phenytoin (Dilantin) 100 mg PEG TID [facility] Last Admin: 11/21/15 17:11 Dose: 100 mg Polyethylene Glycol (Miralax) 17 gm PEG BID [facility] Last Admin: 08/21/15 11:26 Dose: Not Given Assessment/Plan (1) UTI (lower urinary tract infection) Current Visit: Yes Status: Resolved Comment: 11/22: Continue current management. 11/21: Continue current management. 11/20: Continue current management. 11/19: urine grew Klebsiella pneumoniae, sensative to Rocephin. Afebrile, WBC WNL. Continue current management. 11/18: urine positive for gram negative rods, currently on Rocephin. Afebrile and WBC WNL. F/U final result. 09/23: Flagyl discontinued 09/17: urine Cx negative 09/11: Urine Cx pseudomonas - started zosyn 3.375 gm IVPB Q8H (day #12) Afebrile overnight. WBC on :13.4 ID on case- Dr. Armstrong - help very much appreciated (2) Bed sore Current Visit: Yes Status: Acute Comment: 11/19: Continue wound care and current management. 11/16: Continue current management of wound care. 11/15: Continue wound care, [facility]icare and medihoney. 11/13: Continue to improve. Continue wound care, sensicare and medihoney. 11/09: Continue wound care. 11/06: Visualized today. Continue wound care. 11/02: Continue wound care. Will check 1x a week. 10/23: Improving, continue wound care. 10/22: -wound care following patient 10/19: -examined today -continue treatment with S[facility]icare and Medihoney as per Wound Care 10/12--> cont LWC as per Plastic and Wound care team 10/10: Wound care recommendations: S[facility] to buttocks around ulcer, MediHoney to necrotic tissue, Position Q2 hours, Recall when necrotic tissue is soft/loose for debridement 10/09: sacral ulcer, stage [address] Dr. Panchal consulted, f/u recommendations 08/09- stage one ulcer, healed, per nursing. continue repositioning of patient q2H dolphin mattress (3) Blood in stool Current Visit: Yes Status: Acute Comment: Resolved for now. C.diff negative ASA and Plavix resumed . (4) Anoxic encephalopathy Current Visit: Yes Status: Acute Comment: No acute change in mental status patient with trach in place pending placement- Family agreed to check out placement. s/p PEG (5) Leukocytosis Current Visit: Yes Status: Acute Comment: No Leukocytosis as of 11/16. 11/15 CXR- No active disease. No significant interval change since last CXR on 10/20. F/U UA Monitor (6) Seizures Current Visit: Yes Status: Acute Comment: Continue dilantin 100mg via PEG TID (7) Respiratory failure Current Visit: Yes Status: Acute Comment: off vent s/p trach and PEG pending placement (8) Prophylactic measure Current Visit: Yes Status: Acute Comment: Lovenox, Pepcid, SCDs
--- NOTE | 2015-11-22 10:02 | CP.PCM.PN ---
<Mariella Wagner - Last Filed: 11/22/15 15:48> Subjective - Subjective Subjective: Medicine Progress Note: Patient seen and examined at bedside this morning. Patient with trach collar on. Nurse aspirated secretions since patient sounded congested. Patient awake and in no acute distress. Non verbal secondary to anoxic brain injury. Review of Systems - Review of Systems Systems not reviewed;Unavailable: Other (anoxic brain injury) Objective - Vital Signs/Intake and Output Vital Signs (last 24 hours): Vital Signs - 24 hr 11/21/15 11/21/15 11/22/15 14:03 22:00 07:02 Temperature 98.5 F 99.5 F 98.1 F Pulse Rate 90 86 93 H Respiratory 20 20 20 Rate Blood Pressure 116/76 113/76 169/77 H O2 Sat by Pulse 98 100 100 Oximetry 11/22/15 08:38 Temperature Pulse Rate 93 H Respiratory Rate Blood Pressure O2 Sat by Pulse Oximetry Intake and Output (last 12 hours): Intake & Output 11/21/15 11/22/15 11/22/15 18:59 06:59 18:59 Intake Total 850 740 Output Total 1400 700 500 Balance -550 -700 240 Intake: Intake, IV Amount 50 Left Hand 50 Tube Feeding 800 740 Output: Urine 1400 700 500 Urethral (Yoo) 1400 700 500 - Medications Medications: Current Medications Albuterol/Ipratropium (Duoneb 3 Mg/0.5 Mg (3 Ml) Ud) 3 ml INH RQ6 [facility] Last Admin: 11/22/15 08:26 Dose: 3 ml Aspirin (Aspirin) 325 mg PO DAILY [facility] Last Admin: 11/21/15 09:38 Dose: 325 mg Clopidogrel Bisulfate (Plavix) 75 mg PO DAILY [facility] Last Admin: 11/21/15 09:38 Dose: 75 mg Enoxaparin Sodium (Lovenox) 40 mg SC DAILY [facility] Last Admin: 11/21/15 09:37 Dose: 40 mg Famotidine (Pepcid) 20 mg PO BID [facility] Last Admin: 11/21/15 17:11 Dose: 20 mg Lactobacillus Acidophilus (Bacid Acidophilus) 1 cap PO BID [facility] Last Admin: 11/21/15 17:18 Dose: 1 cap Lisinopril (Zestril) 5 mg PO DAILY [facility] Last Admin: 11/21/15 09:38 Dose: 5 mg Phenytoin (Dilantin) 100 mg PEG TID [facility] Last Admin: 11/21/15 17:11 Dose: 100 mg Polyethylene Glycol (Miralax) 17 gm PEG BID [facility] Last Admin: 08/21/15 11:26 Dose: Not Given - Constitutional Appears: No Acute Distress - Head Exam Head Exam: NORMAL INSPECTION, NORMOCEPHALIC - Eye Exam Eye Exam: Normal appearance - ENT Exam ENT Exam: Mucous Membranes Moist - Neck Exam Additional comments: +trach collar in place. - Respiratory Exam Respiratory Exam: Clear to PA & Lateral, NORMAL BREATHING PATTERN. absent: Rales, Rhonchi, Wheezes Additional comments: +some coarse breath sounds - Cardiovascular Exam Cardiovascular Exam: REGULAR RHYTHM, +S1, +S2 - GI/Abdominal Exam GI & Abdominal Exam: Normal Bowel Sounds, Soft. absent: Distended - Neurological Exam Neurological exam: Altered - Skin Skin Exam: Pallor, Warm Assessment/Plan (1) Leukocytosis Current Visit: Yes Status: Acute Comment: No Leukocytosis as of 11/19. f/u CBC on next HD. 11/26 Recheck UA and Urine C&S. 11/15 CXR- No active disease. No significant interval change since last CXR on 10/20. UA 11/16 positive. Urine Cx 11/16 positive for Klebsiella. s/p Rocephin IVPB for 5 days. Monitor (2) Bed sore Current Visit: Yes Status: Acute Comment: 11/22: Continue wound care, [facility] and [facility]. Continue repositioning of patient q2H. dolphin mattress. Heel air boots. 11/19: Continue wound care and current management. 11/16: Continue current management of wound care. 11/15: Continue wound care, [facility] and [facility]. 11/13: Continue to improve. Continue wound care, [facility] and [facility]. 11/09: Continue wound care. 11/06: Visualized today. Continue wound care. 11/02: Continue wound care. Will check 1x a week. 10/23: Improving, continue wound care. 10/22: -wound care following patient 10/19: -examined today -continue treatment with [facility] and [facility] as per Wound Care 10/12--> cont LWC as per Plastic and Wound care team 10/10: Wound care recommendations: [facility] to buttocks around ulcer, [facility] to necrotic tissue, Position Q2 hours, Recall when necrotic tissue is soft/loose for debridement 10/09: sacral ulcer, stage [address] Dr. Panchal consulted, f/u recommendations 08/09- stage one ulcer, healed, per nursing. continue repositioning of patient q2H dolphin mattress (3) Anoxic encephalopathy Current Visit: Yes Status: Acute Comment: No acute change in mental status. patient with trach in place. pending placement. Patient with PEG tube. (4) Respiratory failure Current Visit: Yes Status: Acute Comment: off vent. Trach collar on. s/p trach and PEG pending placement (5) STEMI (ST elevation myocardial infarction) Current Visit: Yes Status: Acute Comment: cardiac stents on 06/13/15. Continue Lisinopril 5mg PO daily Continue Plavix 75mg PO daily Continue ASA 325mg PO daily (6) Seizures Current Visit: Yes Status: Acute Comment: Continue dilantin 100mg via PEG TID (7) Deep tissue injury Current Visit: Yes Status: Acute Comment: Continue wound care Qshift 11/22: Continue wound care, [facility] and [facility]. Continue repositioning of patient q2H. dolphin mattress. Heel air boots. (8) Prophylactic measure Current Visit: Yes Status: Acute Comment: Lovenox 40 SC daily Pepcid 20 mg PO BID [facility] <Amandeep Chavis H - Last Filed: 11/22/15 15:58> Objective - Vital Signs/Intake and Output Vital Signs (last 24 hours): Vital Signs - 24 hr 11/21/15 11/22/15 11/22/15 22:00 07:02 08:38 Temperature 99.5 F 98.1 F Pulse Rate 86 93 H 93 H Respiratory 20 20 Rate Blood Pressure 113/76 169/77 H O2 Sat by Pulse 100 100 Oximetry 11/22/15 13:27 Temperature 98.6 F Pulse Rate 102 H Respiratory 20 Rate Blood Pressure 114/69 O2 Sat by Pulse 99 Oximetry Intake and Output (last 12 hours): Intake & Output 11/21/15 11/22/15 11/22/15 18:59 06:59 18:59 Intake Total 850 740 Output Total 1400 700 500 Balance -550 -700 240 Intake: Intake, IV Amount 50 Left Hand 50 Tube Feeding 800 740 Output: Urine 1400 700 500 Urethral (Yoo) 1400 700 500 - Medications Medications: Current Medications Albuterol/Ipratropium (Duoneb 3 Mg/0.5 Mg (3 Ml) Ud) 3 ml INH RQ6 [facility] Last Admin: 11/22/15 13:40 Dose: 3 ml Aspirin (Aspirin) 325 mg PO DAILY [facility] Last Admin: 11/22/15 10:20 Dose: 325 mg Clopidogrel Bisulfate (Plavix) 75 mg PO DAILY [facility] Last Admin: 11/22/15 10:20 Dose: 75 mg Enoxaparin Sodium (Lovenox) 40 mg SC DAILY [facility] Last Admin: 11/22/15 10:20 Dose: 40 mg Famotidine (Pepcid) 20 mg PO BID [facility] Last Admin: 11/22/15 10:21 Dose: 20 mg Lactobacillus Acidophilus (Bacid Acidophilus) 1 cap PO BID [facility] Last Admin: 11/22/15 10:20 Dose: 1 cap Lisinopril (Zestril) 5 mg PO DAILY [facility] Last Admin: 11/22/15 10:20 Dose: 5 mg Phenytoin (Dilantin) 100 mg PEG TID [facility] Last Admin: 11/22/15 14:17 Dose: 100 mg Polyethylene Glycol (Miralax) 17 gm PEG BID [facility] Last Admin: 08/21/15 11:26 Dose: Not Given Assessment/Plan (1) Respiratory failure Current Visit: Yes Status: Acute Comment: off vent. Trach collar on. s/p trach and PEG pending placement (2) Anoxic encephalopathy Current Visit: Yes Status: Acute Comment: No acute change in mental status. patient with trach in place. pending placement. Patient with PEG tube. (3) STEMI (ST elevation myocardial infarction) Current Visit: Yes Status: Acute Comment: cardiac stents on 06/13/15. Continue Lisinopril 5mg PO daily Continue Plavix 75mg PO daily Continue ASA 325mg PO daily (4) Cardiac arrest Current Visit: Yes Status: Acute Comment: s/p V-Tach arrest Continue ASA 325mg PO daily Continue Plavix 75mg PO daily Continue Lisinopril 5mg PO daily s/p trach and PEG (5) Seizures Current Visit: Yes Status: Acute Comment: Continue dilantin 100mg via PEG TID (6) Prophylactic measure Current Visit: Yes Status: Acute Comment: Lovenox 40 SC daily Pepcid 20 mg PO BID [facility] Attending/Attestation - Attestation I have personally seen and examined this patient.: Yes I have fully participated in the care of the patient.: Yes I have reviewed all pertinent clinical information: Yes Notes (Text): 11/22/15 15:57 Medical attending: Patient was seen and examined by me, agree with the above note by [facility]. Currently were waiting on placement issues. Recheck his UA urinalysis again, however I suspect we'll find another bacterial growth since does have chronic Yoo. Thank you Amandeep Chavis
[2015-11-22] MEDS: Enoxaparin 40 mg Syringe SC SCH (10:20)
[2015-11-22] MEDS: Phenytoin 100 mg/4 ml Oral Susp UD PEG SCH ×3 (10:20→17:30)
[2015-11-22] MEDS: Lactobacillus Acidophilus 500 MU Cap PO SCH ×2 (10:20→17:31)
[2015-11-22 17:34] LABS: URINE BILIRUBIN NEGATIVE (NEGATIVE); URINE BLOOD 2+ (NEGATIVE); URINE CLARITY Clear (Clear); URINE COLOR Yellow (YELLOW); URINE GLUCOSE (UA) Normal (Normal); URINE LEUKOCYTE ESTERASE 2+ Leu/uL (Negative); URINE PROTEIN TRACE mg/dL (NEGATIVE); URINE UROBILINOGEN Normal mg/dL (0.2-1.0)
[2015-11-22 17:43] LABS: URINE BACTERIA FEW (<OCC)
--- NOTE | 2015-11-23 00:47 | CP.PCM.PN ---
<Nely Pate - Last Filed: 11/23/15 00:42> Subjective - Subjective Subjective: Patient seen and examined. No acute change in condition. Patient was awake, but not alert and not oriented. Pt does not appear to be in acute distress. ROS unobtainable. Review of Systems - Review of Systems Systems not reviewed;Unavailable: Other (anoxic brain injury) Objective - Vital Signs/Intake and Output Vital Signs (last 24 hours): Vital Signs - 24 hr 11/22/15 11/22/15 11/22/15 07:02 08:38 13:27 Temperature 98.1 F 98.6 F Pulse Rate 93 H 93 H 102 H Respiratory 20 20 Rate Blood Pressure 169/77 H 114/69 O2 Sat by Pulse 100 99 Oximetry 11/22/15 21:38 Temperature 96.9 F L Pulse Rate 94 H Respiratory Rate Blood Pressure 142/79 O2 Sat by Pulse 100 Oximetry Intake and Output (last 12 hours): Intake & Output 11/22/15 11/22/15 11/23/15 06:59 18:59 06:59 Intake Total 1540 Output Total 700 950 Balance -700 590 Intake: Tube Feeding 1540 Output: Urine 700 950 Urethral (Yoo) 700 950 - Medications Medications: Current Medications Albuterol/Ipratropium (Duoneb 3 Mg/0.5 Mg (3 Ml) Ud) 3 ml INH RQ6 [facility] Last Admin: 11/22/15 20:27 Dose: 3 ml Aspirin (Aspirin) 325 mg PO DAILY [facility] Last Admin: 11/22/15 10:20 Dose: 325 mg Clopidogrel Bisulfate (Plavix) 75 mg PO DAILY [facility] Last Admin: 11/22/15 10:20 Dose: 75 mg Enoxaparin Sodium (Lovenox) 40 mg SC DAILY [facility] Last Admin: 11/22/15 10:20 Dose: 40 mg Famotidine (Pepcid) 20 mg PO BID [facility] Last Admin: 11/22/15 17:30 Dose: 20 mg Lactobacillus Acidophilus (Bacid Acidophilus) 1 cap PO BID [facility] Last Admin: 11/22/15 17:31 Dose: 1 cap Lisinopril (Zestril) 5 mg PO DAILY [facility] Last Admin: 11/22/15 10:20 Dose: 5 mg Phenytoin (Dilantin) 100 mg PEG TID [facility] Last Admin: 11/22/15 17:30 Dose: 100 mg Polyethylene Glycol (Miralax) 17 gm PEG BID [facility] Last Admin: 08/21/15 11:26 Dose: Not Given - Labs Labs (last 24 hours): Laboratory Results - last 24 hr 11/22/15 17:11 Urine Color Yellow Urine Clarity Clear Urine pH 7.0 Ur Specific [place] 1.015 Urine Protein Trace Urine Glucose (UA) Normal Urine Ketones Negative Urine Blood 2+ H Urine Nitrate Positive H Urine Bilirubin Negative Urine Urobilinogen Normal Ur Leukocyte Esterase 2+ H Urine WBC (Auto) 15 H Urine RBC (Auto) 65 H Urine Bacteria Few H - Constitutional Appears: No Acute Distress, Chronically Ill - Head Exam Head Exam: ATRAUMATIC, NORMOCEPHALIC - Eye Exam Eye Exam: Normal appearance - ENT Exam ENT Exam: Mucous Membranes Moist - Neck Exam Additional comments: trach collar in place - Respiratory Exam Respiratory Exam: Clear to PA & Lateral, NORMAL BREATHING PATTERN. absent: Rales, Rhonchi, Wheezes, Respiratory Distress - Cardiovascular Exam Cardiovascular Exam: REGULAR RHYTHM, +S1, +S2. absent: Systolic Murmur - GI/Abdominal Exam GI & Abdominal Exam: Normal Bowel Sounds, Soft. absent: Distended, Firm, Tenderness - Extremities Exam Extremities exam: absent: pedal edema Additional comments: dry feet - Neurological Exam Neurological exam: absent: Alert, Oriented x3 - Skin Skin Exam: Dry, Normal Color, Warm Assessment/Plan (1) Anoxic encephalopathy Current Visit: Yes Status: Acute Comment: No acute change in mental status. patient with trach in place. pending placement. Patient with PEG tube. (2) Respiratory failure Current Visit: Yes Status: Acute Comment: off vent. Trach collar on. s/p trach and PEG pending placement (3) CAD (coronary artery disease) Current Visit: Yes Status: Acute Comment: s/p STEMI and stent placement Continue ASA 325mg PO daily Continue Lisinopril 5mg PO daily Continue Plavix 75mg PO daily (4) STEMI (ST elevation myocardial infarction) Current Visit: Yes Status: Acute Comment: cardiac stents on 06/13/15. Continue Lisinopril 5mg PO daily Continue Plavix 75mg PO daily Continue ASA 325mg PO daily (5) Seizures Current Visit: Yes Status: Acute Comment: Continue dilantin 100mg via PEG TID (6) Leukocytosis Current Visit: Yes Status: Acute Comment: 11/22 UA: 2+ LE, 15 WBC, 65 RBC, few bacteria. No Leukocytosis as of 11/19. f/u CBC on next HD. 11/26 Recheck Urine C&S. 11/15 CXR- No active disease. No significant interval change since last CXR on 10/20. UA 11/16 positive. Urine Cx 11/16 positive for Klebsiella. s/p Rocephin IVPB for 5 days. Monitor (7) Bed sore Current Visit: Yes Status: Acute Comment: 11/22: Continue wound care, [facility] and [facility]. Continue repositioning of patient q2H. dolphin mattress. Heel air boots. 11/19: Continue wound care and current management. 11/16: Continue current management of wound care. 11/15: Continue wound care, [facility] and [facility]. 11/13: Continue to improve. Continue wound care, [facility] and [facility]. 11/09: Continue wound care. 11/06: Visualized today. Continue wound care. 11/02: Continue wound care. Will check 1x a week. 10/23: Improving, continue wound care. 10/22: -wound care following patient 10/19: -examined today -continue treatment with [facility] and [facility] as per Wound Care 10/12--> cont LWC as per Plastic and Wound care team 10/10: Wound care recommendations: [facility] to buttocks around ulcer, [facility] to necrotic tissue, Position Q2 hours, Recall when necrotic tissue is soft/loose for debridement 10/09: sacral ulcer, stage [address] Dr. Panchal consulted, f/u recommendations 08/09- stage one ulcer, healed, per nursing. continue repositioning of patient q2H dolphin mattress (8) Deep tissue injury Current Visit: Yes Status: Acute Comment: Continue wound care Qshift 11/22: Continue wound care, [facility] and [facility]. Continue repositioning of patient q2H. dolphin mattress. Heel air boots. (9) Prophylactic measure Current Visit: Yes Status: Acute Comment: Lovenox 40 SC daily Pepcid 20 mg PO BID [facility] <Chavis,Peter H - Last Filed: 11/23/15 09:23> Objective - Vital Signs/Intake and Output Vital Signs (last 24 hours): Vital Signs - 24 hr 11/22/15 11/22/15 11/22/15 13:27 20:00 21:38 Temperature 98.6 F 96.9 F L Pulse Rate 102 H 94 H 94 H Respiratory 20 Rate Blood Pressure 114/69 142/79 O2 Sat by Pulse 99 100 Oximetry 11/23/15 05:07 Temperature 98.7 F Pulse Rate 99 H Respiratory 20 Rate Blood Pressure 126/78 O2 Sat by Pulse 100 Oximetry Intake and Output (last 12 hours): Intake & Output 11/22/15 11/23/15 11/23/15 18:59 06:59 18:59 Intake Total 1540 740 Output Total 950 500 Balance 590 240 Intake: Tube Feeding 1540 740 Output: Urine 950 500 Urethral (Yoo) 950 500 - Medications Medications: Current Medications Albuterol/Ipratropium (Duoneb 3 Mg/0.5 Mg (3 Ml) Ud) 3 ml INH RQ6 [facility] Last Admin: 11/23/15 07:47 Dose: 3 ml Aspirin (Aspirin) 325 mg PO DAILY [facility] Last Admin: 11/22/15 10:20 Dose: 325 mg Clopidogrel Bisulfate (Plavix) 75 mg PO DAILY [facility] Last Admin: 11/22/15 10:20 Dose: 75 mg Enoxaparin Sodium (Lovenox) 40 mg SC DAILY [facility] Last Admin: 11/22/15 10:20 Dose: 40 mg Famotidine (Pepcid) 20 mg PO BID [facility] Last Admin: 11/22/15 17:30 Dose: 20 mg Lactobacillus Acidophilus (Bacid Acidophilus) 1 cap PO BID [facility] Last Admin: 11/22/15 17:31 Dose: 1 cap Lisinopril (Zestril) 5 mg PO DAILY [facility] Last Admin: 11/22/15 10:20 Dose: 5 mg Phenytoin (Dilantin) 100 mg PEG TID [facility] Last Admin: 11/22/15 17:30 Dose: 100 mg Polyethylene Glycol (Miralax) 17 gm PEG BID [facility] Last Admin: 08/21/15 11:26 Dose: Not Given - Labs Labs (last 24 hours): Laboratory Results - last 24 hr 11/22/15 17:11 Urine Color Yellow Urine Clarity Clear Urine pH 7.0 Ur Specific [place] 1.015 Urine Protein Trace Urine Glucose (UA) Normal Urine Ketones Negative Urine Blood 2+ H Urine Nitrate Positive H Urine Bilirubin Negative Urine Urobilinogen Normal Ur Leukocyte Esterase 2+ H Urine WBC (Auto) 15 H Urine RBC (Auto) 65 H Urine Bacteria Few H Assessment/Plan (1) Respiratory failure Current Visit: Yes Status: Acute Comment: off vent. Trach collar on. s/p trach and PEG pending placement (2) Anoxic encephalopathy Current Visit: Yes Status: Acute Comment: No acute change in mental status. patient with trach in place. pending placement. Patient with PEG tube. (3) STEMI (ST elevation myocardial infarction) Current Visit: Yes Status: Acute Comment: cardiac stents on 06/13/15. Continue Lisinopril 5mg PO daily Continue Plavix 75mg PO daily Continue ASA 325mg PO daily (4) Cardiac arrest Current Visit: Yes Status: Acute Comment: s/p V-Tach arrest Continue ASA 325mg PO daily Continue Plavix 75mg PO daily Continue Lisinopril 5mg PO daily s/p trach and PEG (5) Seizures Current Visit: Yes Status: Acute Comment: Continue dilantin 100mg via PEG TID (6) Prophylactic measure Current Visit: Yes Status: Acute Comment: Lovenox 40 SC daily Pepcid 20 mg PO BID [facility] Attending/Attestation - Attestation I have personally seen and examined this patient.: Yes I have fully participated in the care of the patient.: Yes I have reviewed all pertinent clinical information: Yes Notes (Text): 11/23/15 09:23 Medical attending: agree with the above note by resident. Patient seen and examined, unfourtunately there is no change in the current situation. As before. thank you, Amandeep Chavis
[2015-11-23] MEDS: Albuterol-Ipratrop 3 mg / 0.5 (3 ml) UD INH SCH ×4 (00:59→19:30)
[2015-11-23] MEDS: Enoxaparin 40 mg Syringe SC SCH (09:42)
[2015-11-23] MEDS: Phenytoin 100 mg/4 ml Oral Susp UD PEG SCH ×3 (09:42→17:54)
[2015-11-23] MEDS: Lactobacillus Acidophilus 500 MU Cap PO SCH ×2 (09:46→18:17)
--- NOTE | 2015-11-24 00:20 | CP.PCM.PN ---
Addendum entered and electronically signed by Colleen Braswell MD 11/24/15 16:00 : Hgb: 11.8. Discussed with nurse about 30 cc of megan blood from peg site. Nursing will not suction at this time. No active bleeding from the site. Addendum entered and electronically signed by Amandeep Chavis DO 11/24/15 13:16: Agree with the below addendum: Patient is getting imaging done and type and screen Addendum entered and electronically signed by Colleen Braswell MD 11/24/15 12:22 : Ordered for CT chest w contrast, nurse communication for second IV line, and start IV fluids: NS 50 cc/hr-communicated with Dr. Rodrigues with Dr. Chan. Addendum entered and electronically signed by Colleen Braswell MD 11/24/15 12:18 : Spoke with Dr. Chan who would like residential field manager to evaluate the site. Patient is ordered for PT,PTT, NPO and Chest xray and type and cross. Addendum entered and electronically signed by Colleen Braswell MD 11/24/15 11:54 : House Doctor note: Patient has megan blood coming from the trach site. Hgb: 12 INR: 1.1. pending call back from Dr. Salgado (pulm) and Dr. Chan (CT). Original Note: <Sandra Mercedes - Last Filed: 11/24/15 00:17> Subjective - Subjective Subjective: Pt seen and examined. Pt is on vent. Pt is able to move eyes and blink, but unable to respond to verbal stimuli. No acute events overnight. Unable to obtain ROS. Review of Systems - Review of Systems Systems not reviewed;Unavailable: Altered Mental Status Objective - Vital Signs/Intake and Output Vital Signs (last 24 hours): Vital Signs - 24 hr 11/23/15 11/23/15 11/23/15 05:07 14:00 21:47 Temperature 98.7 F 98.1 F 98.9 F Pulse Rate 99 H 100 H 106 H Respiratory 20 18 19 Rate Blood Pressure 126/78 119/76 148/83 O2 Sat by Pulse 100 100 99 Oximetry Intake and Output (last 12 hours): Intake & Output 11/23/15 11/23/15 11/24/15 06:59 18:59 06:59 Intake Total 740 1000 Output Total 500 700 900 Balance 240 300 -900 Intake: Tube Feeding 740 1000 Output: Urine 500 700 900 Urethral (Yoo) 500 700 900 Other: # Bowel Movements 1 - Medications Medications: Current Medications Albuterol/Ipratropium (Duoneb 3 Mg/0.5 Mg (3 Ml) Ud) 3 ml INH RQ6 [facility] Last Admin: 11/23/15 19:30 Dose: 3 ml Aspirin (Aspirin) 325 mg PO DAILY [facility] Last Admin: 11/23/15 09:42 Dose: 325 mg Clopidogrel Bisulfate (Plavix) 75 mg PO DAILY [facility] Last Admin: 11/23/15 09:42 Dose: 75 mg Enoxaparin Sodium (Lovenox) 40 mg SC DAILY [facility] Last Admin: 11/23/15 09:42 Dose: 40 mg Famotidine (Pepcid) 20 mg PO BID [facility] Last Admin: 11/23/15 17:54 Dose: 20 mg Lactobacillus Acidophilus (Bacid Acidophilus) 1 cap PO BID [facility] Last Admin: 11/23/15 18:17 Dose: 1 cap Lisinopril (Zestril) 5 mg PO DAILY [facility] Last Admin: 11/23/15 09:42 Dose: 5 mg Phenytoin (Dilantin) 100 mg PEG TID [facility] Last Admin: 11/23/15 17:54 Dose: 100 mg Polyethylene Glycol (Miralax) 17 gm PEG BID [facility] Last Admin: 08/21/15 11:26 Dose: Not Given - Constitutional Appears: Non-toxic, No Acute Distress - Head Exam Head Exam: NORMAL INSPECTION, NORMOCEPHALIC - Eye Exam Eye Exam: EOMI, Normal appearance - ENT Exam ENT Exam: Mucous Membranes Moist Additional comments: trach in place - Respiratory Exam Respiratory Exam: Clear to PA & Lateral - Cardiovascular Exam Cardiovascular Exam: REGULAR RHYTHM, +S1, +S2 - GI/Abdominal Exam GI & Abdominal Exam: Normal Bowel Sounds, Soft - Extremities Exam Extremities exam: pedal pulses present - Neurological Exam Neurological exam: Altered - Skin Skin Exam: Dry, Normal Color Assessment/Plan (1) Anoxic encephalopathy Assessment and plan: Current Visit: Yes Status: Acute Comment: No acute change in mental status. patient with trach in place. Patient with PEG tube. (2) Leukocytosis Current Visit: Yes Status: Acute Comment: 11/22 UA: 2+ LE, 15 WBC, 65 RBC, few bacteria. No Leukocytosis as of 11/19. f/u CBC on next HD. 11/26 Recheck Urine C&S. 11/15 CXR- No active disease. No significant interval change since last CXR on 10/20. UA 11/16 positive. Urine Cx 11/16 positive for Klebsiella. s/p Rocephin IVPB for 5 days. Monitor (3) Respiratory failure Current Visit: Yes Status: Acute Comment: off vent. Trach collar on. s/p trach and PEG pending placement (4) STEMI (ST elevation myocardial infarction) Current Visit: Yes Status: Acute Comment: cardiac stents on 06/13/15. Continue Lisinopril 5mg PO daily Continue Plavix 75mg PO daily Continue ASA 325mg PO daily (5) Seizures Current Visit: Yes Status: Acute Comment: Continue dilantin 100mg via PEG TID (6) Bed sore Current Visit: Yes Status: Acute Comment: Continue wound care, sensicare and medihoney. Continue repositioning of patient q2H. dolphin mattress. Heel air boots. 11/19: Continue wound care and current management. 11/16: Continue current management of wound care. 11/15: Continue wound care, sensicare and medihoney. 11/13: Continue to improve. Continue wound care, sensicare and medihoney. 11/09: Continue wound care. 11/06: Visualized today. Continue wound care. 11/02: Continue wound care. Will check 1x a week. 10/23: Improving, continue wound care. 10/22: -wound care following patient 10/19: -examined today -continue treatment with Sensicare and Medihoney as per Wound Care 10/12--> cont LWC as per Plastic and Wound care team 10/10: Wound care recommendations: SensiCare to buttocks around ulcer, MediHoney to necrotic tissue, Position Q2 hours, Recall when necrotic tissue is soft/loose for debridement 10/09: sacral ulcer, stage [address] Panchal consulted, f/u recommendations 08/09- stage one ulcer, healed, per nursing. continue repositioning of patient q2H dolphin mattress (7) Deep tissue injury Current Visit: Yes Status: Acute Comment: Continue wound care Qshift 11/22: Continue wound care, sensicare and medihoney. Continue repositioning of patient q2H. dolphin mattress. Heel air boots. (8) Prophylactic measure Current Visit: Yes Status: Acute Comment: Lovenox 40 SC daily Pepcid 20 mg PO BID [facility] <Amandeep Chavis H - Last Filed: 11/24/15 09:49> Objective - Vital Signs/Intake and Output Vital Signs (last 24 hours): Vital Signs - 24 hr 11/23/15 11/23/15 11/24/15 14:00 21:47 05:18 Temperature 98.1 F 98.9 F 98.2 F Pulse Rate 100 H 106 H 88 Respiratory 18 19 18 Rate Blood Pressure 119/76 148/83 130/72 O2 Sat by Pulse 100 99 100 Oximetry Intake and Output (last 12 hours): Intake & Output 11/23/15 11/24/15 11/24/15 18:59 06:59 18:59 Intake Total 1000 690 Output Total 700 1100 Balance 300 -410 Intake: Tube Feeding 1000 690 Output: Urine 700 1100 Urethral (Yoo) 700 1100 Other: # Bowel Movements 1 - Medications Medications: Current Medications Albuterol/Ipratropium (Duoneb 3 Mg/0.5 Mg (3 Ml) Ud) 3 ml INH RQ6 [facility] Last Admin: 11/24/15 07:47 Dose: 3 ml Aspirin (Aspirin) 325 mg PO DAILY [facility] Last Admin: 11/23/15 09:42 Dose: 325 mg Clopidogrel Bisulfate (Plavix) 75 mg PO DAILY [facility] Last Admin: 11/23/15 09:42 Dose: 75 mg Enoxaparin Sodium (Lovenox) 40 mg SC DAILY [facility] Last Admin: 11/23/15 09:42 Dose: 40 mg Famotidine (Pepcid) 20 mg PO BID [facility] Last Admin: 11/23/15 17:54 Dose: 20 mg Lactobacillus Acidophilus (Bacid Acidophilus) 1 cap PO BID [facility] Last Admin: 11/23/15 18:17 Dose: 1 cap Lisinopril (Zestril) 5 mg PO DAILY [facility] Last Admin: 11/23/15 09:42 Dose: 5 mg Phenytoin (Dilantin) 100 mg PEG TID [facility] Last Admin: 11/23/15 17:54 Dose: 100 mg Polyethylene Glycol (Miralax) 17 gm PEG BID [facility] Last Admin: 08/21/15 11:26 Dose: Not Given - Labs Labs (last 24 hours): Laboratory Results - last 24 hr 11/24/15 08:59 WBC 13.0 H RBC 3.99 L Hgb 12.3 Hct 37.2 MCV 93.3 MCH 30.8 MCHC 33.1 RDW 14.2 Plt Count 338 MPV 8.3 Neut % (Auto) 68.1 Lymph % (Auto) 13.0 L [place] % (Auto) 7.3 Eos % (Auto) 10.9 H Baso % (Auto) 0.7 Neut # 8.9 H Lymph # 1.7 [place] # 0.9 H Eos # 1.4 H Baso # 0.1 PT 11.6 INR 1.1 Assessment/Plan (1) Respiratory failure Current Visit: Yes Status: Acute Comment: off vent. Trach collar on. s/p trach and PEG pending placement (2) Anoxic encephalopathy Current Visit: Yes Status: Acute Comment: No acute change in mental status. patient with trach in place. Patient with PEG tube. (3) STEMI (ST elevation myocardial infarction) Current Visit: Yes Status: Acute Comment: cardiac stents on 06/13/15. Continue Lisinopril 5mg PO daily Continue Plavix 75mg PO daily Continue ASA 325mg PO daily (4) Cardiac arrest Current Visit: Yes Status: Acute Comment: s/p V-Tach arrest Continue ASA 325mg PO daily Continue Plavix 75mg PO daily Continue Lisinopril 5mg PO daily s/p trach and PEG (5) Seizures Current Visit: Yes Status: Acute Comment: Continue dilantin 100mg via PEG TID (6) Prophylactic measure Current Visit: Yes Status: Acute Comment: Lovenox 40 SC daily Pepcid 20 mg PO BID [facility] Attending/Attestation - Attestation I have personally seen and examined this patient.: Yes I have fully participated in the care of the patient.: Yes I have reviewed all pertinent clinical information: Yes Notes (Text): 11/24/15 09:48 Medical Attending: Patient seen and examined, no acute changes at this time. Pending placement as noted before. thank you, Amandeep Chavis
[2015-11-24] MEDS: Albuterol-Ipratrop 3 mg / 0.5 (3 ml) UD INH SCH ×4 (01:01→20:20)
[2015-11-24 09:05] LABS: BASO # 0.1 K/uL (0.0-0.2); BASO % 0.7 % (0.0-2.0); EOS # 1.4 K/uL (0.0-0.7); EOS % 10.9 % (0.0-4.0); HEMOGLOBIN 12.3 g/dL (12.0-18.0); LYMPH # 1.7 K/uL (1.0-4.3); MEAN CELL VOLUME 93.3 fL (80.0-94.0); MEAN CORPUSCULAR HEMOGLOBIN 30.8 pg (27.0-31.0); MEAN CORPUSCULAR HGB CONC 33.1 g/dL (33.0-37.0); MEAN PLATELET VOLUME 8.3 fL (7.2-11.7); MONO # 0.9 K/uL (0.0-0.8); MONO % 7.3 % (0.0-10.0); NEUT # 8.9 K/uL (1.8-7.0); NEUT % 68.1 % (50.0-75.0); RBC 3.99 Mil/uL (4.40-5.90); RED CELL DISTRIBUTION WIDTH 14.2 % (11.5-14.5)
[2015-11-24 09:17] LABS: INR 1.1; PROTHROMBIN TIME 11.6 SECONDS (9.7-12.2)
[2015-11-24] MEDS: Lactobacillus Acidophilus 500 MU Cap PO SCH ×2 (11:01→19:00)
[2015-11-24] MEDS: Phenytoin 100 mg/4 ml Oral Susp UD PEG SCH ×3 (11:02→19:30)
[2015-11-24] MEDS: Sodium Chloride 0.9% 1,000 ML IV SCH (13:00)
--- NOTE | 2015-11-24 13:04 | CP.PCM.PN ---
Subjective - Subjective Subjective: Called to see the pt (11:40 AM), who has bleeding megan blood from trach when aspirate since this morning and now more megan blood. pt seen and exam. Vitals were stable. RN suctioning the trach and noted red blood and blood clots. ( approx 20 cc) contacted to ENT, Dr Mandel rec to call CT sx who placed the trach. RADHA Borrero CT Sx rec CT scan chest with IV contrast and will have his resident to see him now and rec pt may need Pulm or ICU for eval with Bronch. RADHA Salgado who rec to have ICU eval with Bronch. ICU was consulted. eval pending. NPO, [place] and Screen Hold TF I have placed second IV line #20 Repeat CBC, INR, IVF with NS 50 cc/Hr Monitor bitals closely Cont O2 supplement Updated to Dr Chavis. RADHA pt and daughter and updated the pt condition. Ans all ques. Objective - Vital Signs/Intake and Output Vital Signs (last 24 hours): Vital Signs - 24 hr 11/23/15 11/23/15 11/24/15 14:00 21:47 05:18 Temperature 98.1 F 98.9 F 98.2 F Pulse Rate 100 H 106 H 88 Respiratory 18 19 18 Rate Blood Pressure 119/76 148/83 130/72 O2 Sat by Pulse 100 99 100 Oximetry Intake and Output (last 12 hours): Intake & Output 11/23/15 11/24/15 11/24/15 18:59 06:59 18:59 Intake Total 1000 690 Output Total 700 1100 Balance 300 -410 Intake: Tube Feeding 1000 690 Output: Urine 700 1100 Urethral (Yoo) 700 1100 Other: # Bowel Movements 1 - Medications Medications: Current Medications Albuterol/Ipratropium (Duoneb 3 Mg/0.5 Mg (3 Ml) Ud) 3 ml INH RQ6 [facility] Last Admin: 11/24/15 07:47 Dose: 3 ml Aspirin (Aspirin) 325 mg PO DAILY [facility] Last Admin: 11/23/15 09:42 Dose: 325 mg Clopidogrel Bisulfate (Plavix) 75 mg PO DAILY [facility] Last Admin: 11/24/15 11:02 Dose: 75 mg Enoxaparin Sodium (Lovenox) 40 mg SC DAILY [facility] Last Admin: 11/23/15 09:42 Dose: 40 mg Famotidine (Pepcid) 20 mg PO BID [facility] Last Admin: 11/24/15 11:03 Dose: 20 mg Sodium Chloride (Sodium Chloride 0.9%) 1,000 mls @ 50 mls/hr IV .Q20H [facility] Sodium Chloride (Sodium Chloride 0.9%) 1,000 mls @ 50 mls/hr IV .Q20H [facility] Lactobacillus Acidophilus (Bacid Acidophilus) 1 cap PO BID [facility] Last Admin: 11/24/15 11:01 Dose: 1 cap Lisinopril (Zestril) 5 mg PO DAILY [facility] Last Admin: 11/24/15 11:03 Dose: 5 mg Phenytoin (Dilantin) 100 mg PEG TID [facility] Last Admin: 11/24/15 11:02 Dose: 100 mg Polyethylene Glycol (Miralax) 17 gm PEG BID [facility] Last Admin: 08/21/15 11:26 Dose: Not Given - Labs Labs (last 24 hours): Laboratory Results - last 24 hr 11/24/15 08:59 WBC 13.0 H RBC 3.99 L Hgb 12.3 Hct 37.2 MCV 93.3 MCH 30.8 MCHC 33.1 RDW 14.2 Plt Count 338 MPV 8.3 Neut % (Auto) 68.1 Lymph % (Auto) 13.0 L [place] % (Auto) 7.3 Eos % (Auto) 10.9 H Baso % (Auto) 0.7 Neut # 8.9 H Lymph # 1.7 [place] # 0.9 H Eos # 1.4 H Baso # 0.1 PT 11.6 INR 1.1 Assessment/Plan (1) Anoxic encephalopathy Current Visit: Yes Status: Acute Comment: No acute change in mental status. patient with trach in place. Patient with PEG tube. (2) STEMI (ST elevation myocardial infarction) Current Visit: Yes Status: Acute Comment: cardiac stents on 06/13/15. Continue Lisinopril 5mg PO daily Continue Plavix 75mg PO daily Continue ASA 325mg PO daily (3) Respiratory failure Current Visit: Yes Status: Acute Comment: off vent. Trach collar on. s/p trach and PEG pending placement (4) Seizures Current Visit: Yes Status: Acute Comment: Continue dilantin 100mg via PEG TID (5) Prophylactic measure Current Visit: Yes Status: Acute Comment: Lovenox 40 SC daily Pepcid 20 mg PO BID [facility] (6) Bed sore Current Visit: Yes Status: Acute Comment: Continue wound care, sensicare and medihoney. Continue repositioning of patient q2H. dolphin mattress. Heel air boots. 11/19: Continue wound care and current management. 11/16: Continue current management of wound care. 11/15: Continue wound care, sensicare and medihoney. 11/13: Continue to improve. Continue wound care, sensicare and medihoney. 11/09: Continue wound care. 11/06: Visualized today. Continue wound care. 11/02: Continue wound care. Will check 1x a week. 10/23: Improving, continue wound care. 10/22: -wound care following patient 10/19: -examined today -continue treatment with Sensicare and Medihoney as per Wound Care 10/12--> cont LWC as per Plastic and Wound care team 10/10: Wound care recommendations: SensiCare to buttocks around ulcer, MediHoney to necrotic tissue, Position Q2 hours, Recall when necrotic tissue is soft/loose for debridement 10/09: sacral ulcer, stage [address] Panchal consulted, f/u recommendations 08/09- stage one ulcer, healed, per nursing. continue repositioning of patient q2H dolphin mattress
[2015-11-24 14:23] LABS: BASO # 0.1 K/uL (0.0-0.2); BASO % 0.3 % (0.0-2.0); EOS # 1.5 K/uL (0.0-0.7); EOS % 9.3 % (0.0-4.0); HEMOGLOBIN 11.8 g/dL (12.0-18.0); LYMPH # 1.9 K/uL (1.0-4.3); LYMPH % 11.3 % (20.0-40.0); MEAN CELL VOLUME 93.1 fL (80.0-94.0); MEAN CORPUSCULAR HEMOGLOBIN 29.9 pg (27.0-31.0); MEAN CORPUSCULAR HGB CONC 32.1 g/dL (33.0-37.0); MEAN PLATELET VOLUME 8.4 fL (7.2-11.7); MONO # 1.3 K/uL (0.0-0.8); MONO % 7.8 % (0.0-10.0); NEUT # 11.7 K/uL (1.8-7.0); NEUT % 71.3 % (50.0-75.0); RBC 3.94 Mil/uL (4.40-5.90); RED CELL DISTRIBUTION WIDTH 14.2 % (11.5-14.5); WHITE BLOOD COUNT 16.5 K/uL (4.8-10.8)
--- NOTE | 2015-11-24 14:26 | CP.PCM.CON ---
<Josue Millan - Last Filed: 11/24/15 16:43> History of Present Illness - History of Present Illness History of Present Illness: Thoracic: Dr. Chan CC: Bleeding from trach collar HPI: 65M who initially presented to ED on 06/13/15 in cardiac arrest w/ subsequent anoxic brain injury and vent dependent respiratory failure requiring trach placement on 06/20/15 w/ Dr. Chan. Per nursing, starting yesterday, pt began to have thick yellow secretions from trach site. After several episodes of suctioning, sputum became blood tinged. This then progressed to intermittent episodes of megan blood w. clots. On exam pt had approximately 20cc of bright red sputum coming from trach site. There was no signs of active bleeding. VSS WNL. Given the pts current condition, ROS was not obtainable. PMH: cardiac arrest, anoxic brain injury, seizures, respiratpry failure PSH: cardiac cath Meds: MAR reviewed NKDA Social: hospitalized since May 2015, no Tobacco, ETOH, recreational drugs since this time FHx: non-contributory Review of Systems - Review of Systems Systems not reviewed;Unavailable: Acuity of Condition Past Patient History - Tetanus Immunizations Tetanus Immunization: Unknown - Past Medical History & Family History Past Medical History?: Yes - Past Social History Smoking Status: Never Smoked Alcohol: None Drugs: Denies - CARDIAC Hx Cardiac Disorders: Yes (unknown condition diagnosed in [place] 15 years ago) - MUSCULOSKELETAL/RHEUMATOLOGICAL Hx Falls: Yes - PSYCHIATRIC Hx Substance Use: No - ANESTHESIA Hx Anesthesia: No Hx Anesthesia Reactions: No Hx Malignant Hyperthermia: No Has any member of the family had a problem w/ anesthesia?: No Meds Allergies/Adverse Reactions: Allergies Allergy/AdvReac Type Severity Reaction Status Date / Time No Known Allergies Allergy Unverified 06/13/15 20:57 - Medications Medications: Current Medications Albuterol/Ipratropium (Duoneb 3 Mg/0.5 Mg (3 Ml) Ud) 3 ml INH RQ6 [facility] Last Admin: 11/24/15 13:46 Dose: 3 ml Aspirin (Aspirin) 325 mg PO DAILY [facility] Last Admin: 11/23/15 09:42 Dose: 325 mg Clopidogrel Bisulfate (Plavix) 75 mg PO DAILY [facility] Last Admin: 11/24/15 11:02 Dose: 75 mg Enoxaparin Sodium (Lovenox) 40 mg SC DAILY [facility] Last Admin: 11/23/15 09:42 Dose: 40 mg Famotidine (Pepcid) 20 mg PO BID [facility] Last Admin: 11/24/15 11:03 Dose: 20 mg Sodium Chloride (Sodium Chloride 0.9%) 1,000 mls @ 50 mls/hr IV .Q20H [facility] Sodium Chloride (Sodium Chloride 0.9%) 1,000 mls @ 50 mls/hr IV .Q20H [facility] Lactobacillus Acidophilus (Bacid Acidophilus) 1 cap PO BID [facility] Last Admin: 11/24/15 11:01 Dose: 1 cap Lisinopril (Zestril) 5 mg PO DAILY [facility] Last Admin: 11/24/15 11:03 Dose: 5 mg Phenytoin (Dilantin) 100 mg PEG TID [facility] Last Admin: 11/24/15 11:02 Dose: 100 mg Polyethylene Glycol (Miralax) 17 gm PEG BID [facility] Last Admin: 08/21/15 11:26 Dose: Not Given Physical Exam - Constitutional Appears: Cachectic, Chronically Ill - Head Exam Head Exam: ATRAUMATIC, NORMOCEPHALIC - Eye Exam Eye Exam: EOMI. absent: Scleral icterus - ENT Exam ENT Exam: Mucous Membranes Dry, Normal External Ear Exam - Neck Exam Additional comments: Tracheostomy w/ bright red sputum, no signs of active bleeding - Respiratory Exam Respiratory Exam: NORMAL BREATHING PATTERN. absent: Respiratory Distress Additional comments: tracheostomy - GI/Abdominal Exam GI & Abdominal Exam: Soft. absent: Distended, Firm, Guarding, Rigid, Tenderness Additional comments: PEG - Extremities Exam Extremities exam: Positive for: pedal edema. Negative for: calf tenderness - Neurological Exam Neurological exam: Alert - Skin Skin Exam: Dry, Normal Color, Warm Results - Vital Signs Recent Vital Signs: Last Vital Signs Temp 98.2 F 11/24/15 05:18 Pulse 88 11/24/15 05:18 Resp 18 11/24/15 05:18 BP 130/72 11/24/15 05:18 Pulse Ox 100 11/24/15 05:18 - Labs Result Diagrams: 11/24/15 14:10 11/19/15 06:43 Labs: Laboratory Results - last 24 hr 11/24/15 08:59 WBC 13.0 H RBC 3.99 L Hgb 12.3 Hct 37.2 MCV 93.3 MCH 30.8 MCHC 33.1 RDW 14.2 Plt Count 338 MPV 8.3 Neut % (Auto) 68.1 Lymph % (Auto) 13.0 L [place] % (Auto) 7.3 Eos % (Auto) 10.9 H Baso % (Auto) 0.7 Neut # 8.9 H Lymph # 1.7 [place] # 0.9 H Eos # 1.4 H Baso # 0.1 PT 11.6 INR 1.1 Assessment/Plan - Assessment and Plan (Free Text) Assessment: 65M s/p cardiac arrest w/ hypoxic brain injury and subsequent respiratory failure requiring trach presenting w/ bright red sputum from trach site -No signs of active bleeding -VSS - 12.3/37.2 to 11.8/36.7 -coags WNL -bleeding likely 2/2 suctioning of trach site -tracheal innominate fistula unlikely but will R/O w/ CT angio -will continue to monitory -d/w attending Monty PGY1 Surgery <Blair Chan - Last Filed: 11/26/15 13:57> Meds - Medications Medications: Current Medications Albuterol/Ipratropium (Duoneb 3 Mg/0.5 Mg (3 Ml) Ud) 3 ml INH RQ6 [facility] Last Admin: 11/26/15 13:06 Dose: 3 ml Aspirin (Aspirin) 325 mg PO DAILY [facility] Last Admin: 11/23/15 09:42 Dose: 325 mg Clopidogrel Bisulfate (Plavix) 75 mg PO DAILY [facility] Last Admin: 11/24/15 11:02 Dose: 75 mg Enoxaparin Sodium (Lovenox) 40 mg SC DAILY [facility] Last Admin: 11/23/15 09:42 Dose: 40 mg Famotidine (Pepcid) 20 mg PO BID [facility] Last Admin: 11/26/15 10:30 Dose: 20 mg Sodium Chloride (Sodium Chloride 0.9%) 1,000 mls @ 50 mls/hr IV .Q20H [facility] Last Admin: 11/26/15 05:29 Dose: 50 mls/hr Piperacillin Sod/Tazobactam Sod (Zosyn 3.375 Gm Iv) 50 mls @ 100 mls/hr IVPB Q6H [facility] Last Admin: 11/26/15 09:00 Dose: 100 mls/hr Lactobacillus Acidophilus (Bacid Acidophilus) 1 cap PO BID [facility] Last Admin: 11/25/15 18:35 Dose: 1 cap Lisinopril (Zestril) 5 mg PO DAILY [facility] Last Admin: 11/26/15 10:30 Dose: 5 mg Phenytoin (Dilantin) 100 mg PEG TID [facility] Last Admin: 11/26/15 10:30 Dose: 100 mg Polyethylene Glycol (Miralax) 17 gm PEG BID [facility] Last Admin: 08/21/15 11:26 Dose: Not Given Results - Vital Signs Recent Vital Signs: Last Vital Signs Temp 98.9 F 11/26/15 13:41 Pulse 91 H 11/26/15 13:41 Resp 20 11/26/15 13:41 BP 121/80 11/26/15 13:41 Pulse Ox 99 11/26/15 13:41 - Labs Result Diagrams: 11/26/15 07:07 11/26/15 07:07 Labs: Laboratory Results - last 24 hr 11/26/15 07:07 WBC 16.9 H RBC 3.78 L Hgb 11.6 L Hct 35.4 MCV 93.5 MCH 30.6 MCHC 32.7 L RDW 14.6 H Plt Count 369 MPV 8.6 Neut % (Auto) 69.1 Lymph % (Auto) 7.9 L [place] % (Auto) 8.0 Eos % (Auto) 14.8 H Baso % (Auto) 0.2 Neut # 11.7 H Lymph # 1.3 [place] # 1.4 H Eos # 2.5 H Baso # 0.0 Neutrophils % (Manual) 68 Lymphocytes % (Manual) 10 L Monocytes % (Manual) 8 Eosinophils % (Manual) 14 H Toxic Granulation Present Platelet Estimate Normal Large Platelets Present RBC Morphology Normal Sodium 142 Potassium 3.9 Chloride 102 Carbon Dioxide 27 Anion Gap 16 BUN 28 H Creatinine 0.6 L Est GFR ( Amer) > 60 Est GFR (Non-Af Amer) > 60 Random Glucose 129 H Calcium 8.6 Total Bilirubin 0.7 AST 29 ALT 60 Alkaline Phosphatase 102 Total Protein 6.9 Albumin 3.2 L Globulin 3.7 Albumin/Globulin Ratio 0.9 L Assessment/Plan - Assessment and Plan (Free Text) Assessment: Pt seen and agree with resident. Bloody Tracheal secretions: Likely secondary to trauma. CT scan of chest. Will follow with you. Blair Chan MD FACS
[2015-11-24 14:38] LABS: PROTHROMBIN TIME 10.6 SECONDS (9.7-12.2)
--- NOTE | 2015-11-24 16:40 | RAD ---
HISTORY: bleeidng from Trach site COMPARISON: 11/15/2015 FINDINGS: LUNGS: Linear opacities in the bilateral lower lungs, with limited to atelectasis or scarring. PLEURA: No significant pleural effusion identified, no pneumothorax apparent. CARDIOVASCULAR: Normal. OSSEOUS STRUCTURES: No significant abnormalities. VISUALIZED UPPER ABDOMEN: Normal. OTHER FINDINGS: Tracheostomy tube in situ. Within the limits of the radiographic technique, it appears to be in normal position. IMPRESSION: No active disease.
[2015-11-25] MEDS: Albuterol-Ipratrop 3 mg / 0.5 (3 ml) UD INH SCH ×4 (01:29→20:33)
[2015-11-25] MEDS: Piperacill/Tazo 3.375gm in Dex 50 ML IVPB SCH ×4 (03:00→21:00)
--- NOTE | 2015-11-25 03:52 | CP.PCM.PN ---
<Sandra Mercedes - Last Filed: 11/25/15 03:48> Subjective - Subjective Subjective: Pt seen and examined. Yesterday, pt had megan red blood from trach site after suctioning. Bright red blood continues to be visible in trach, but signs of active bleeding. Dr. Chan and Dr. Salgado aware. Pt continues to be unresponsive to verbal commands and therefore unable to obtain ROS. Pt's WBC continues to elevate. Review of Systems - Review of Systems Systems not reviewed;Unavailable: Altered Mental Status Objective - Vital Signs/Intake and Output Vital Signs (last 24 hours): Vital Signs - 24 hr 11/24/15 11/24/15 11/24/15 05:18 09:45 11:55 Temperature 98.2 F Pulse Rate 88 Respiratory 18 Rate Blood Pressure 130/72 98/65 L 99/61 L O2 Sat by Pulse 100 Oximetry 11/24/15 11/24/15 14:48 21:53 Temperature 98.7 F 98.3 F Pulse Rate 104 H 105 H Respiratory 20 18 Rate Blood Pressure 117/71 123/84 O2 Sat by Pulse 97 97 Oximetry Intake and Output (last 12 hours): Intake & Output 11/24/15 11/24/15 11/25/15 06:59 18:59 06:59 Intake Total 690 700 Output Total 1100 300 500 Balance -410 400 -500 Intake: Tube Feeding 690 700 Output: Urine 1100 300 500 Urethral (Yoo) 1100 300 500 Other: # Bowel Movements 1 1 - Medications Medications: Current Medications Albuterol/Ipratropium (Duoneb 3 Mg/0.5 Mg (3 Ml) Ud) 3 ml INH RQ6 [facility] Last Admin: 11/25/15 01:29 Dose: 3 ml Aspirin (Aspirin) 325 mg PO DAILY [facility] Last Admin: 11/23/15 09:42 Dose: 325 mg Clopidogrel Bisulfate (Plavix) 75 mg PO DAILY [facility] Last Admin: 11/24/15 11:02 Dose: 75 mg Enoxaparin Sodium (Lovenox) 40 mg SC DAILY [facility] Last Admin: 11/23/15 09:42 Dose: 40 mg Famotidine (Pepcid) 20 mg PO BID [facility] Last Admin: 11/24/15 19:30 Dose: 20 mg Sodium Chloride (Sodium Chloride 0.9%) 1,000 mls @ 50 mls/hr IV .Q20H [facility] Piperacillin Sod/Tazobactam Sod (Zosyn 3.375 Gm Iv) 50 mls @ 100 mls/hr IVPB Q6H [facility] Lactobacillus Acidophilus (Bacid Acidophilus) 1 cap PO BID [facility] Last Admin: 11/24/15 11:01 Dose: 1 cap Lisinopril (Zestril) 5 mg PO DAILY [facility] Last Admin: 11/24/15 11:03 Dose: 5 mg Phenytoin (Dilantin) 100 mg PEG TID [facility] Last Admin: 11/24/15 19:30 Dose: 100 mg Polyethylene Glycol (Miralax) 17 gm PEG BID [facility] Last Admin: 08/21/15 11:26 Dose: Not Given - Labs Labs (last 24 hours): Laboratory Results - last 24 hr 11/24/15 11/24/15 08:59 14:10 WBC 13.0 H 16.5 H RBC 3.99 L 3.94 L Hgb 12.3 11.8 L Hct 37.2 36.7 MCV 93.3 93.1 MCH 30.8 29.9 MCHC 33.1 32.1 L RDW 14.2 14.2 Plt Count 338 355 MPV 8.3 8.4 Neut % (Auto) 68.1 71.3 Lymph % (Auto) 13.0 L 11.3 L [place] % (Auto) 7.3 7.8 Eos % (Auto) 10.9 H 9.3 H Baso % (Auto) 0.7 0.3 Neut # 8.9 H 11.7 H Lymph # 1.7 1.9 [place] # 0.9 H 1.3 H Eos # 1.4 H 1.5 H Baso # 0.1 0.1 PT 11.6 10.6 INR 1.1 1.0 APTT 25 Blood Type O POSITIVE Antibody Screen Negative - Constitutional Appears: Chronically Ill - Head Exam Head Exam: NORMAL INSPECTION, NORMOCEPHALIC - Eye Exam Eye Exam: Normal appearance Pupil Exam: PERRL - ENT Exam ENT Exam: Mucous Membranes Dry Additional comments: megan red blood in trach - Respiratory Exam Respiratory Exam: Clear to PA & Lateral, NORMAL BREATHING PATTERN (on vent) - Cardiovascular Exam Cardiovascular Exam: REGULAR RHYTHM, +S1, +S2 - GI/Abdominal Exam GI & Abdominal Exam: Normal Bowel Sounds, Soft - Extremities Exam Extremities exam: pedal pulses present - Neurological Exam Neurological exam: Altered - Skin Skin Exam: Dry, Normal Color Assessment/Plan (1) Anoxic encephalopathy Assessment and plan: Current Visit: Yes Status: Acute Comment: No acute change in mental status. patient with trach in place-bright red blood after suctioning, monitor hgb Patient with PEG tube. (2) Low hemoglobin Current Visit: Yes Status: Acute Comment: Recent Hgb 11.8, decreasing Pt has megan red blood in trach Monitor (3) Leukocytosis Current Visit: Yes Status: Acute Comment: 11/25: WBC 16.5, increased from 13.0 on 11/24/15, no left shift Monitor 11/15 CXR- No active disease. No significant interval change since last CXR on 10/20. UA 11/16 positive. Urine Cx 11/16 positive for Klebsiella. s/p Rocephin IVPB for 5 days. Monitor (4) Respiratory failure Current Visit: Yes Status: Acute Comment: off vent. Trach collar on. s/p trach and PEG pending placement (5) STEMI (ST elevation myocardial infarction) Current Visit: Yes Status: Acute Comment: cardiac stents on 06/13/15. Continue Lisinopril 5mg PO daily Continue Plavix 75mg PO daily Continue ASA 325mg PO daily (6) Seizures Current Visit: Yes Status: Acute Comment: Continue dilantin 100mg via PEG TID (7) Bed sore Current Visit: Yes Status: Acute Comment: Continue wound care, sensicare and medihoney. Continue repositioning of patient q2H. dolphin mattress. Heel air boots. 11/19: Continue wound care and current management. 11/16: Continue current management of wound care. 11/15: Continue wound care, sensicare and medihoney. 11/13: Continue to improve. Continue wound care, sensicare and medihoney. 11/09: Continue wound care. 11/06: Visualized today. Continue wound care. 11/02: Continue wound care. Will check 1x a week. 10/23: Improving, continue wound care. 10/22: -wound care following patient 10/19: -examined today -continue treatment with Sensicare and Medihoney as per Wound Care 10/12--> cont LWC as per Plastic and Wound care team 10/10: Wound care recommendations: SensiCare to buttocks around ulcer, MediHoney to necrotic tissue, Position Q2 hours, Recall when necrotic tissue is soft/loose for debridement 10/09: sacral ulcer, stage [address] Panchal consulted, f/u recommendations 08/09- stage one ulcer, healed, per nursing. continue repositioning of patient q2H dolphin mattress (8) Deep tissue injury Current Visit: Yes Status: Acute Comment: Continue wound care Qshift 11/22: Continue wound care, sensicare and medihoney. Continue repositioning of patient q2H. dolphin mattress. Heel air boots. (9) Prophylactic measure Current Visit: Yes Status: Acute Comment: Lovenox 40 SC daily Pepcid 20 mg PO BID [facility] <Rashel Rodrigues - Last Filed: 11/25/15 13:02> Objective - Vital Signs/Intake and Output Vital Signs (last 24 hours): Vital Signs - 24 hr 11/24/15 11/24/15 11/25/15 14:48 21:53 05:00 Temperature 98.7 F 98.3 F 98.4 F Pulse Rate 104 H 105 H 93 H Respiratory 20 18 18 Rate Blood Pressure 117/71 123/84 108/75 O2 Sat by Pulse 97 97 94 L Oximetry Intake and Output (last 12 hours): Intake & Output 11/24/15 11/25/15 11/25/15 18:59 06:59 18:59 Intake Total 700 1290 Output Total 300 800 Balance 400 -800 1290 Intake: Intake, IV Amount 600 Left Hand 600 Tube Feeding 700 690 Output: Urine 300 800 Urethral (Yoo) 300 800 Other: # Bowel Movements 1 1 - Medications Medications: Current Medications Albuterol/Ipratropium (Duoneb 3 Mg/0.5 Mg (3 Ml) Ud) 3 ml INH RQ6 [facility] Last Admin: 11/25/15 07:52 Dose: 3 ml Aspirin (Aspirin) 325 mg PO DAILY [facility] Last Admin: 11/23/15 09:42 Dose: 325 mg Clopidogrel Bisulfate (Plavix) 75 mg PO DAILY [facility] Last Admin: 11/24/15 11:02 Dose: 75 mg Enoxaparin Sodium (Lovenox) 40 mg SC DAILY [facility] Last Admin: 11/23/15 09:42 Dose: 40 mg Famotidine (Pepcid) 20 mg PO BID [facility] Last Admin: 01/03/16 10:27 Dose: 20 mg Sodium Chloride (Sodium Chloride 0.9%) 1,000 mls @ 50 mls/hr IV .Q20H [facility] Last Admin: 11/24/15 13:00 Dose: 50 mls/hr Piperacillin Sod/Tazobactam Sod (Zosyn 3.375 Gm Iv) 50 mls @ 100 mls/hr IVPB Q6H [facility] Last Admin: 11/25/15 09:30 Dose: 100 mls/hr Lactobacillus Acidophilus (Bacid Acidophilus) 1 cap PO BID [facility] Last Admin: 11/25/15 10:28 Dose: 1 cap Lisinopril (Zestril) 5 mg PO DAILY [facility] Last Admin: 11/25/15 10:27 Dose: 5 mg Phenytoin (Dilantin) 100 mg PEG TID [facility] Last Admin: 11/25/15 10:28 Dose: 100 mg Polyethylene Glycol (Miralax) 17 gm PEG BID [facility] Last Admin: 08/21/15 11:26 Dose: Not Given - Labs Labs (last 24 hours): Laboratory Results - last 24 hr 11/24/15 11/25/15 11/25/15 14:10 07:43 10:57 WBC 16.5 H 13.9 H RBC 3.94 L 4.02 L Hgb 11.8 L 12.1 Hct 36.7 37.7 MCV 93.1 93.8 MCH 29.9 30.2 MCHC 32.1 L 32.2 L RDW 14.2 14.4 Plt Count 355 356 MPV 8.4 8.5 Neut % (Auto) 71.3 78.8 H Lymph % (Auto) 11.3 L 6.5 L [place] % (Auto) 7.8 4.5 Eos % (Auto) 9.3 H 10.0 H Baso % (Auto) 0.3 0.2 Neut # 11.7 H 10.9 H Lymph # 1.9 0.9 L [place] # 1.3 H 0.6 Eos # 1.5 H 1.4 H Baso # 0.1 0.0 Neutrophils % (Manual) 81 H Band Neutrophils % 2 H Lymphocytes % (Manual) 4 L Monocytes % (Manual) 3 Eosinophils % (Manual) 10 H Toxic Granulation Present Platelet Estimate Normal Anisocytosis (manual) Slight PT 10.6 INR 1.0 APTT 25 Sodium 140 Potassium 4.2 Chloride 101 Carbon Dioxide 27 Anion Gap 16 BUN 23 H Creatinine 0.6 L Est GFR ( Amer) > 60 Est GFR (Non-Af Amer) > 60 Random Glucose 134 H Calcium 9.0 Phosphorus 4.6 H Magnesium 2.2 Total Bilirubin 0.4 AST 35 ALT 63 Alkaline Phosphatase 110 Total Protein 7.6 Albumin 3.5 Globulin 4.1 H Albumin/Globulin Ratio 0.9 L Blood Type O POSITIVE Antibody Screen Negative Assessment/Plan (1) Anoxic encephalopathy Current Visit: Yes Status: Chronic (2) STEMI (ST elevation myocardial infarction) Current Visit: Yes Status: Acute Comment: cardiac stents on 06/13/15. Continue Lisinopril 5mg PO daily Continue Plavix 75mg PO daily Continue ASA 325mg PO daily (3) Respiratory failure Current Visit: Yes Status: Acute Comment: off vent. Trach collar on. s/p trach and PEG pending placement (4) Seizures Current Visit: Yes Status: Acute Comment: Continue dilantin 100mg via PEG TID (5) Prophylactic measure Current Visit: Yes Status: Acute Comment: Lovenox 40 SC daily Pepcid 20 mg PO BID [facility] (6) Bed sore Current Visit: Yes Status: Acute Comment: Continue wound care, sensicare and medihoney. Continue repositioning of patient q2H. dolphin mattress. Heel air boots. 11/19: Continue wound care and current management. 11/16: Continue current management of wound care. 11/15: Continue wound care, sensicare and medihoney. 11/13: Continue to improve. Continue wound care, sensicare and medihoney. 11/09: Continue wound care. 11/06: Visualized today. Continue wound care. 11/02: Continue wound care. Will check 1x a week. 10/23: Improving, continue wound care. 10/22: -wound care following patient 10/19: -examined today -continue treatment with Sensicare and Medihoney as per Wound Care 10/12--> cont LWC as per Plastic and Wound care team 10/10: Wound care recommendations: SensiCare to buttocks around ulcer, MediHoney to necrotic tissue, Position Q2 hours, Recall when necrotic tissue is soft/loose for debridement 10/09: sacral ulcer, stage 3 Dr. Panchal consulted, f/u recommendations 08/09- stage one ulcer, healed, per nursing. continue repositioning of patient q2H delores sibley Attending/Attestation - Attestation I have personally seen and examined this patient.: Yes I have fully participated in the care of the patient.: Yes I have reviewed all pertinent clinical information: Yes Notes (Text): 11/25/15 12:57 Patient was seen and examined during round with residents. Patient has normal active bleeding from tracheostomy site. His hemoglobin has been stable vital signs stable no fever. Radiologist called me this morning and mentioned about the day his son changes in the report of the CT scan of the chest which was done yesterday. According to radiologist there was an atypical bleeding around the tracheostomy site. But there is no hematoma there is no fistula was noted. There is some stuff inside the tracheostomy area most likely mucus and old blood. The changes on the radiology report was discussed with surgical team certified surgical technician we'll then inform surg attending I will keep the patient nothing by mouth until tomorrow and if patient condition stable and improved and we will resume his feeding. Continue antibiotics repeat chest x-ray we will get sputum culture which become more purulent Repeat blood tests tomorrow and continue to monitor closely. Patient condition were discussed at length with patient daughter updated condition and answered all questions.
[2015-11-25] MEDS: Sodium Chloride 0.9% 1,000 ML IV SCH (08:30)
--- NOTE | 2015-11-25 09:08 | CP.PCM.PN ---
Subjective - Subjective Subjective: Surgery Progress Note Dr. Chan Pt seen and examined. No acute overnight events. As per pt's nurse, there hasn' t been more bleeding from the trach site. Frequent suctioning was reduced to prevent further exacerbation of the bleeding. Currently, pt is resting comfortably in bed. Review of Systems - Review of Systems Systems not reviewed;Unavailable: Other (trached with anoxic brain injury) Objective - Vital Signs/Intake and Output Vital Signs (last 24 hours): Vital Signs - 24 hr 11/24/15 11/24/15 11/24/15 09:45 11:55 14:48 Temperature 98.7 F Pulse Rate 104 H Respiratory 20 Rate Blood Pressure 98/65 L 99/61 L 117/71 O2 Sat by Pulse 97 Oximetry 11/24/15 11/25/15 21:53 05:00 Temperature 98.3 F 98.4 F Pulse Rate 105 H 93 H Respiratory 18 18 Rate Blood Pressure 123/84 108/75 O2 Sat by Pulse 97 94 L Oximetry Intake and Output (last 12 hours): Intake & Output 11/24/15 11/25/15 11/25/15 18:59 06:59 18:59 Intake Total 700 1290 Output Total 300 800 Balance 400 -800 1290 Intake: Intake, IV Amount 600 Left Hand 600 Tube Feeding 700 690 Output: Urine 300 800 Urethral (Yoo) 300 800 Other: # Bowel Movements 1 1 - Medications Medications: Current Medications Albuterol/Ipratropium (Duoneb 3 Mg/0.5 Mg (3 Ml) Ud) 3 ml INH RQ6 [facility] Last Admin: 11/25/15 07:52 Dose: 3 ml Aspirin (Aspirin) 325 mg PO DAILY [facility] Last Admin: 11/23/15 09:42 Dose: 325 mg Clopidogrel Bisulfate (Plavix) 75 mg PO DAILY [facility] Last Admin: 11/24/15 11:02 Dose: 75 mg Enoxaparin Sodium (Lovenox) 40 mg SC DAILY [facility] Last Admin: 11/23/15 09:42 Dose: 40 mg Famotidine (Pepcid) 20 mg PO BID [facility] Last Admin: 11/24/15 19:30 Dose: 20 mg Sodium Chloride (Sodium Chloride 0.9%) 1,000 mls @ 50 mls/hr IV .Q20H [facility] Piperacillin Sod/Tazobactam Sod (Zosyn 3.375 Gm Iv) 50 mls @ 100 mls/hr IVPB Q6H [facility] Last Admin: 11/25/15 03:00 Dose: 100 mls/hr Lactobacillus Acidophilus (Bacid Acidophilus) 1 cap PO BID [facility] Last Admin: 11/24/15 11:01 Dose: 1 cap Lisinopril (Zestril) 5 mg PO DAILY [facility] Last Admin: 11/24/15 11:03 Dose: 5 mg Phenytoin (Dilantin) 100 mg PEG TID [facility] Last Admin: 11/24/15 19:30 Dose: 100 mg Polyethylene Glycol (Miralax) 17 gm PEG BID [facility] Last Admin: 08/21/15 11:26 Dose: Not Given - Labs Labs (last 24 hours): Laboratory Results - last 24 hr 11/24/15 11/24/15 11/25/15 08:59 14:10 07:43 WBC 13.0 H 16.5 H RBC 3.99 L 3.94 L Hgb 12.3 11.8 L Hct 37.2 36.7 MCV 93.3 93.1 MCH 30.8 29.9 MCHC 33.1 32.1 L RDW 14.2 14.2 Plt Count 338 355 MPV 8.3 8.4 Neut % (Auto) 68.1 71.3 Lymph % (Auto) 13.0 L 11.3 L [place] % (Auto) 7.3 7.8 Eos % (Auto) 10.9 H 9.3 H Baso % (Auto) 0.7 0.3 Neut # 8.9 H 11.7 H Lymph # 1.7 1.9 [place] # 0.9 H 1.3 H Eos # 1.4 H 1.5 H Baso # 0.1 0.1 PT 11.6 10.6 INR 1.1 1.0 APTT 25 Phosphorus 4.6 H Magnesium 2.2 Blood Type O POSITIVE Antibody Screen Negative - Constitutional Appears: No Acute Distress - Head Exam Head Exam: ATRAUMATIC, NORMOCEPHALIC - Neck Exam Additional comments: tracheostomy in place, no active bleeding noted. Some blood tinged sputum upon suctioning - Respiratory Exam Respiratory Exam: NORMAL BREATHING PATTERN - Cardiovascular Exam Cardiovascular Exam: RRR - GI/Abdominal Exam GI & Abdominal Exam: Soft - Skin Skin Exam: Dry, Warm Assessment/Plan (1) Anoxic encephalopathy Assessment and plan: 65M s/p tracheostomy after cardiac arrest with anoxic brain injury in June 2015, presenting with bright red sputum from trach site - VSS and labs reviewed - H/H is stable and there are no signs of active bleeding. As per nursing staff , bleeding is much reduced since yesterday with only slight blood tinged sputum upon suctioning - CT angio was obtained yesterday to r/o tracheal innominate fistula and was negative. Bleeding was most likely 2/2 aggressive suctioning which has been reduced - Will continue to monitor - d/w Dr. Rocio Gallegos, Otolaryngology Nurse Current Visit: Yes Status: Chronic
[2015-11-25 09:24] LABS: ALBUMIN 3.5 g/dL (3.5-5.0)
[2015-11-25 09:27] LABS: ALB/GLOB RATIO 0.9 (1.0-2.1); ALT/SGPT 63 U/L (21-72); AST/SGOT 35 U/L (17-59); BLOOD UREA NITROGEN 23 mg/dL (9-20); GFR NON-AFRICAN AMERICAN > 60
[2015-11-25] MEDS: Lactobacillus Acidophilus 500 MU Cap PO SCH ×2 (10:28→18:35)
[2015-11-25] MEDS: Phenytoin 100 mg/4 ml Oral Susp UD PEG SCH ×3 (10:28→18:45)
--- NOTE | 2015-11-25 10:48 | CT ---
PROCEDURE: CT Chest with contrast HISTORY: bleeding from trach site COMPARISON: None. TECHNIQUE: Contiguous axial images were obtained through the chest with intravenous contrast enhancement. Sagittal and coronal reconstructions were performed. IV contrast: 100 cc of intravenous visipaque contrast. Radiation dose (DLP): 617.0 mGy-cm. FINDINGS: LUNGS: Pulmonary opacities are seen in the lower lobes bilaterally. The right lower lobe bronchus is opacified by debris, possibly blood products. The pulmonary opacities seen may represent atelectasis, pneumonia or aspirated blood products. MEDIASTINUM: Minimal atherosclerosis in the thoracic aorta. No aneurysm or dissection. Normal sized heart. Main pulmonary artery unremarkable. No vascular congestion. No lymphadenopathy. Tracheostomy: Surrounding the tracheostomy site, there is evidence of extravasated blood, which suggests active bleeding (series 3 images 76-103). No surrounding hematoma is seen. The blood products might be tracking into the lumen of the trachea or to the external skin surface along the tracheostomy. The debris seen in the trachea and the bronchi may represent blood products. PLEURA: No pleural fluid. No pneumothorax. BONES: No fracture. No destructive lesion. UPPER ABDOMEN: Grossly unremarkable. OTHER FINDINGS: None. IMPRESSION: 1. Evidence of active extravasation of blood along the tracheostomy. No surrounding hematoma. The extravasated blood may be tracking into the lumen of the trachea and bronchi, which demonstrate moderate debris (mucus versus blood products) or externally to the skin surface along the tracheostomy. No evidence of fistula formation or vascular aneurysm. 2. Pulmonary opacities in the bilateral lower lobes, right greater than left, which may represent atelectasis, pneumonia or aspirated blood products. Complete opacification of the right lower lobe bronchus. 3. The preliminary report from the right mentioned density above and below the tracheostomy, which was ascribed to blood products (versus infection or mass lesion). Active extravasation was not mentioned. 4. CRITICAL VALUE: The major findings of this study were conveyed to Dr. Rodrigues at 10:40 a.m. on 11/25/2015.
[2015-11-25 11:11] LABS: BASO % 0.2 % (0.0-2.0); EOS # 1.4 K/uL (0.0-0.7); HEMOGLOBIN 12.1 g/dL (12.0-18.0); LYMPH # 0.9 K/uL (1.0-4.3); LYMPH % 6.5 % (20.0-40.0); MEAN CELL VOLUME 93.8 fL (80.0-94.0); MEAN CORPUSCULAR HEMOGLOBIN 30.2 pg (27.0-31.0); MEAN CORPUSCULAR HGB CONC 32.2 g/dL (33.0-37.0); MEAN PLATELET VOLUME 8.5 fL (7.2-11.7); MONO # 0.6 K/uL (0.0-0.8); MONO % 4.5 % (0.0-10.0); NEUT # 10.9 K/uL (1.8-7.0); NEUT % 78.8 % (50.0-75.0); PLATELET COUNT 356 K/uL (130-400); RBC 4.02 Mil/uL (4.40-5.90); RED CELL DISTRIBUTION WIDTH 14.4 % (11.5-14.5); WHITE BLOOD COUNT 13.9 K/uL (4.8-10.8)
[2015-11-25 11:30] LABS: BANDS 2 % (0-0); EOSINOPHIL 10 % (0-4); LYMPHOCYTE 4 % (20-40); MONOCYTE 3 % (0-10); NEUTROPHIL 81 % (50-75); PLATELET ESTIMATE NORMAL (NORMAL); TOTAL CELLS COUNTED 100
[2015-11-25 11:31] LABS: ANISOCYTOSIS SLIGHT; TOXIC GRANULATION PRESENT
[2015-11-26] MEDS: Albuterol-Ipratrop 3 mg / 0.5 (3 ml) UD INH SCH ×4 (01:37→19:14)
[2015-11-26] MEDS: Piperacill/Tazo 3.375gm in Dex 50 ML IVPB SCH ×4 (03:00→21:49)
[2015-11-26] MEDS: Sodium Chloride 0.9% 1,000 ML IV SCH (05:29)
[2015-11-26 07:34] LABS: BASO % 0.2 % (0.0-2.0); EOS # 2.5 K/uL (0.0-0.7); EOS % 14.8 % (0.0-4.0); HEMOGLOBIN 11.6 g/dL (12.0-18.0); LYMPH # 1.3 K/uL (1.0-4.3); LYMPH % 7.9 % (20.0-40.0); MEAN CELL VOLUME 93.5 fL (80.0-94.0); MEAN CORPUSCULAR HEMOGLOBIN 30.6 pg (27.0-31.0); MEAN CORPUSCULAR HGB CONC 32.7 g/dL (33.0-37.0); MEAN PLATELET VOLUME 8.6 fL (7.2-11.7); MONO # 1.4 K/uL (0.0-0.8); NEUT # 11.7 K/uL (1.8-7.0); NEUT % 69.1 % (50.0-75.0); PLATELET COUNT 369 K/uL (130-400); RBC 3.78 Mil/uL (4.40-5.90); RED CELL DISTRIBUTION WIDTH 14.6 % (11.5-14.5); WHITE BLOOD COUNT 16.9 K/uL (4.8-10.8)
[2015-11-26 07:38] LABS: ALBUMIN 3.2 g/dL (3.5-5.0)
[2015-11-26 07:41] LABS: ALT/SGPT 60 U/L (21-72); AST/SGOT 29 U/L (17-59); BLOOD UREA NITROGEN 28 mg/dL (9-20); GFR NON-AFRICAN AMERICAN > 60
[2015-11-26 07:42] LABS: CALCIUM 8.6 mg/dL (8.4-10.2)
[2015-11-26 07:47] LABS: ALB/GLOB RATIO 0.9 (1.0-2.1)
--- NOTE | 2015-11-26 08:19 | CP.PCM.PN ---
Subjective - Subjective Subjective: Surgery Progress Note Dr. Chan Pt seen and examined. No acute overnight events. Pt looks comfortable, resting in bed. Tracheostomy site is clean, without any active bleeding or blood noted. As per the nurse, pt no longer has bright blood in suctioned secretions. Objective - Vital Signs/Intake and Output Vital Signs (last 24 hours): Vital Signs - 24 hr 11/25/15 11/25/15 11/25/15 14:14 20:17 21:38 Temperature 98.6 F 98.8 F Pulse Rate 106 H 106 H 96 H Respiratory 20 19 Rate Blood Pressure 108/78 118/76 O2 Sat by Pulse 98 99 Oximetry 11/26/15 06:00 Temperature 97.9 F Pulse Rate 96 H Respiratory 20 Rate Blood Pressure 108/76 O2 Sat by Pulse 96 Oximetry Intake and Output (last 12 hours): Intake & Output 11/25/15 11/26/15 11/26/15 18:59 06:59 18:59 Intake Total 1630 Output Total 200 200 Balance 1430 -200 Intake: Intake, IV Amount 600 Left Hand 600 Tube Feeding 1030 Output: Urine 200 200 Urethral (Yoo) 200 200 - Medications Medications: Current Medications Albuterol/Ipratropium (Duoneb 3 Mg/0.5 Mg (3 Ml) Ud) 3 ml INH RQ6 [facility] Last Admin: 11/26/15 07:54 Dose: 3 ml Aspirin (Aspirin) 325 mg PO DAILY [facility] Last Admin: 11/23/15 09:42 Dose: 325 mg Clopidogrel Bisulfate (Plavix) 75 mg PO DAILY [facility] Last Admin: 11/24/15 11:02 Dose: 75 mg Enoxaparin Sodium (Lovenox) 40 mg SC DAILY [facility] Last Admin: 11/23/15 09:42 Dose: 40 mg Famotidine (Pepcid) 20 mg PO BID [facility] Last Admin: 11/25/15 18:45 Dose: 20 mg Sodium Chloride (Sodium Chloride 0.9%) 1,000 mls @ 50 mls/hr IV .Q20H [facility] Last Admin: 11/26/15 05:29 Dose: 50 mls/hr Piperacillin Sod/Tazobactam Sod (Zosyn 3.375 Gm Iv) 50 mls @ 100 mls/hr IVPB Q6H [facility] Last Admin: 11/26/15 03:00 Dose: 100 mls/hr Lactobacillus Acidophilus (Bacid Acidophilus) 1 cap PO BID [facility] Last Admin: 11/25/15 18:35 Dose: 1 cap Lisinopril (Zestril) 5 mg PO DAILY [facility] Last Admin: 11/25/15 10:27 Dose: 5 mg Phenytoin (Dilantin) 100 mg PEG TID [facility] Last Admin: 11/25/15 18:45 Dose: 100 mg Polyethylene Glycol (Miralax) 17 gm PEG BID [facility] Last Admin: 08/21/15 11:26 Dose: Not Given - Labs Labs (last 24 hours): Laboratory Results - last 24 hr 11/25/15 11/25/15 11/26/15 07:43 10:57 07:07 WBC 13.9 H 16.9 H RBC 4.02 L 3.78 L Hgb 12.1 11.6 L Hct 37.7 35.4 MCV 93.8 93.5 MCH 30.2 30.6 MCHC 32.2 L 32.7 L RDW 14.4 14.6 H Plt Count 356 369 MPV 8.5 8.6 Neut % (Auto) 78.8 H 69.1 Lymph % (Auto) 6.5 L 7.9 L [place] % (Auto) 4.5 8.0 Eos % (Auto) 10.0 H 14.8 H Baso % (Auto) 0.2 0.2 Neut # 10.9 H 11.7 H Lymph # 0.9 L 1.3 [place] # 0.6 1.4 H Eos # 1.4 H 2.5 H Baso # 0.0 0.0 Neutrophils % (Manual) 81 H Band Neutrophils % 2 H Lymphocytes % (Manual) 4 L Monocytes % (Manual) 3 Eosinophils % (Manual) 10 H Toxic Granulation Present Platelet Estimate Normal Anisocytosis (manual) Slight Sodium 140 142 Potassium 4.2 3.9 Chloride 101 102 Carbon Dioxide 27 27 Anion Gap 16 16 BUN 23 H 28 H Creatinine 0.6 L 0.6 L Est GFR ( Amer) > 60 > 60 Est GFR (Non-Af Amer) > 60 > 60 Random Glucose 134 H 129 H Calcium 9.0 8.6 Phosphorus 4.6 H Magnesium 2.2 Total Bilirubin 0.4 0.7 AST 35 29 ALT 63 60 Alkaline Phosphatase 110 102 Total Protein 7.6 6.9 Albumin 3.5 3.2 L Globulin 4.1 H 3.7 Albumin/Globulin Ratio 0.9 L 0.9 L - Constitutional Appears: No Acute Distress, Chronically Ill - Head Exam Head Exam: ATRAUMATIC, NORMOCEPHALIC - ENT Exam Additional comments: tracheostomy in place, C/D/I - Respiratory Exam Respiratory Exam: NORMAL BREATHING PATTERN - Cardiovascular Exam Cardiovascular Exam: RRR - GI/Abdominal Exam GI & Abdominal Exam: Soft. absent: Distended - Skin Skin Exam: Dry, Warm Assessment/Plan (1) Anoxic encephalopathy Assessment and plan: 65M s/p tracheostomy after cardiac arrest with anoxic brain injury in June 2015, presenting with bright red sputum from trach site - VSS and labs reviewed - Pt has a slight bump in his white count and a slight drop in hemoglobin from 12.1 to 11.6. However, there is no more active bleeding and we will continue to monitor H/H closely. Pt remains afebrile and is on IV ABX. - Continue current medical management - d/w Dr. Rocio Gallegos, [employer] Current Visit: Yes Status: Chronic
[2015-11-26 08:45] LABS: EOSINOPHIL 14 % (0-4); LYMPHOCYTE 10 % (20-40); MONOCYTE 8 % (0-10); NEUTROPHIL 68 % (50-75); TOTAL CELLS COUNTED 100
[2015-11-26 08:50] LABS: PLATELET ESTIMATE NORMAL (NORMAL)
[2015-11-26 08:54] LABS: LARGE PLATELETS PRESENT; TOXIC GRANULATION PRESENT
[2015-11-26] MEDS: Lactobacillus Acidophilus 500 MU Cap PO SCH ×2 (10:00→17:27)
[2015-11-26] MEDS: Phenytoin 100 mg/4 ml Oral Susp UD PEG SCH ×2 (10:30→14:00)
--- NOTE | 2015-11-26 11:56 | CP.PCM.PN ---
<Sandra Mercedes - Last Filed: 11/26/15 11:53> Subjective - Subjective Subjective: Medicine Note Pt seen and examined. Pt continues to be unresponsive to verbal stimuli; however , can open eyes. No visible megan blood seen on trach site, but evidence of dark red/brown mucous on suction. Spoke to Dr. Chan and pt to have bronchoscopy tomorrow with possible tube change. Unable to obtain ROS. Family meeting today. Review of Systems - Review of Systems Systems not reviewed;Unavailable: Altered Mental Status Objective - Vital Signs/Intake and Output Vital Signs (last 24 hours): Vital Signs - 24 hr 11/25/15 11/25/15 11/25/15 14:14 20:17 21:38 Temperature 98.6 F 98.8 F Pulse Rate 106 H 106 H 96 H Respiratory 20 19 Rate Blood Pressure 108/78 118/76 O2 Sat by Pulse 98 99 Oximetry 11/26/15 06:00 Temperature 97.9 F Pulse Rate 96 H Respiratory 20 Rate Blood Pressure 108/76 O2 Sat by Pulse 96 Oximetry Intake and Output (last 12 hours): Intake & Output 11/25/15 11/26/15 11/26/15 18:59 06:59 18:59 Intake Total 1630 Output Total 200 200 Balance 1430 -200 Intake: Intake, IV Amount 600 Left Hand 600 Tube Feeding 1030 Output: Urine 200 200 Urethral (Yoo) 200 200 - Medications Medications: Current Medications Albuterol/Ipratropium (Duoneb 3 Mg/0.5 Mg (3 Ml) Ud) 3 ml INH RQ6 [facility] Last Admin: 11/26/15 07:54 Dose: 3 ml Aspirin (Aspirin) 325 mg PO DAILY [facility] Last Admin: 11/23/15 09:42 Dose: 325 mg Clopidogrel Bisulfate (Plavix) 75 mg PO DAILY [facility] Last Admin: 11/24/15 11:02 Dose: 75 mg Enoxaparin Sodium (Lovenox) 40 mg SC DAILY [facility] Last Admin: 11/23/15 09:42 Dose: 40 mg Famotidine (Pepcid) 20 mg PO BID [facility] Last Admin: 11/26/15 10:30 Dose: 20 mg Sodium Chloride (Sodium Chloride 0.9%) 1,000 mls @ 50 mls/hr IV .Q20H [facility] Last Admin: 11/26/15 05:29 Dose: 50 mls/hr Piperacillin Sod/Tazobactam Sod (Zosyn 3.375 Gm Iv) 50 mls @ 100 mls/hr IVPB Q6H [facility] Last Admin: 11/26/15 09:00 Dose: 100 mls/hr Lactobacillus Acidophilus (Bacid Acidophilus) 1 cap PO BID [facility] Last Admin: 11/25/15 18:35 Dose: 1 cap Lisinopril (Zestril) 5 mg PO DAILY [facility] Last Admin: 11/26/15 10:30 Dose: 5 mg Phenytoin (Dilantin) 100 mg PEG TID [facility] Last Admin: 11/26/15 10:30 Dose: 100 mg Polyethylene Glycol (Miralax) 17 gm PEG BID [facility] Last Admin: 08/21/15 11:26 Dose: Not Given - Labs Labs (last 24 hours): Laboratory Results - last 24 hr 11/26/15 07:07 WBC 16.9 H RBC 3.78 L Hgb 11.6 L Hct 35.4 MCV 93.5 MCH 30.6 MCHC 32.7 L RDW 14.6 H Plt Count 369 MPV 8.6 Neut % (Auto) 69.1 Lymph % (Auto) 7.9 L Gove % (Auto) 8.0 Eos % (Auto) 14.8 H Baso % (Auto) 0.2 Neut # 11.7 H Lymph # 1.3 Gove # 1.4 H Eos # 2.5 H Baso # 0.0 Neutrophils % (Manual) 68 Lymphocytes % (Manual) 10 L Monocytes % (Manual) 8 Eosinophils % (Manual) 14 H Toxic Granulation Present Platelet Estimate Normal Large Platelets Present RBC Morphology Normal Sodium 142 Potassium 3.9 Chloride 102 Carbon Dioxide 27 Anion Gap 16 BUN 28 H Creatinine 0.6 L Est GFR ( Amer) > 60 Est GFR (Non-Af Amer) > 60 Random Glucose 129 H Calcium 8.6 Total Bilirubin 0.7 AST 29 ALT 60 Alkaline Phosphatase 102 Total Protein 6.9 Albumin 3.2 L Globulin 3.7 Albumin/Globulin Ratio 0.9 L - Constitutional Appears: Chronically Ill - Head Exam Head Exam: NORMAL INSPECTION, NORMOCEPHALIC - Eye Exam Eye Exam: EOMI, Normal appearance Pupil Exam: PERRL - ENT Exam ENT Exam: Mucous Membranes Dry - Neck Exam Additional comments: trach shows no signs of visible megan red blood, site is clean and dry - Respiratory Exam Respiratory Exam: Clear to PA & Lateral, NORMAL BREATHING PATTERN (on vent) - Cardiovascular Exam Cardiovascular Exam: REGULAR RHYTHM, +S1, +S2 - GI/Abdominal Exam GI & Abdominal Exam: Normal Bowel Sounds, Soft - Extremities Exam Extremities exam: pedal edema, pedal pulses present - Neurological Exam Neurological exam: Altered - Skin Skin Exam: Dry, Normal Color Assessment/Plan (1) Respiratory failure Current Visit: Yes Status: Acute Comment: Pt to have bronchoscopy tomorrow with possible tube change with Dr. Chan (2) Anoxic encephalopathy Assessment and plan: Current Visit: Yes Status: Chronic Comment: No acute change in mental status. patient with trach in place. Patient with PEG tube. Pending placement (3) Low hemoglobin Current Visit: Yes Status: Acute Comment: Recent Hgb 11.6, decreasing No evidence of megan red blood in trach today Monitor (4) Leukocytosis Current Visit: Yes Status: Acute Comment: WBC 16.9, increasing with no left shift Urine cx (11/22) shows pseudomonas aerg. Continue Zosyn IVPB Q6H Continue to monitor Previous findings: UA 11/16 positive. Urine Cx 11/16 positive for Klebsiella. s/p Rocephin IVPB for 5 days. (5) STEMI (ST elevation myocardial infarction) Current Visit: Yes Status: Acute Comment: cardiac stents on 06/13/15. Continue Lisinopril 5mg PO daily Continue Plavix 75mg PO daily Continue ASA 325mg PO daily (6) Seizures Current Visit: Yes Status: Acute Comment: Continue dilantin 100mg via PEG TID (7) Bed sore Current Visit: Yes Status: Acute Comment: Continue wound care, [facility]icare and medihoney. Continue repositioning of patient q2H. dolphin mattress. Heel air boots. 11/19: Continue wound care and current management. 11/16: Continue current management of wound care. 11/15: Continue wound care, [facility]icare and medihoney. 11/13: Continue to improve. Continue wound care, [facility]ic[facility] and medihoney. 11/09: Continue wound care. 11/06: Visualized today. Continue wound care. 11/02: Continue wound care. Will check 1x a week. 10/23: Improving, continue wound care. 10/22: -wound care following patient 10/19: -examined today -continue treatment with [facility] and Medihoney as per Wound Care 10/12--> cont LWC as per Plastic and Wound care team 10/10: Wound care recommendations: S[facility] to buttocks around ulcer, MediHoney to necrotic tissue, Position Q2 hours, Recall when necrotic tissue is soft/loose for debridement 10/09: sacral ulcer, stage [address]. Panchal consulted, f/u recommendations 08/09- stage one ulcer, healed, per nursing. continue repositioning of patient q2H dolphin mattress (8) Deep tissue injury Current Visit: Yes Status: Acute Comment: Continue wound care Qshift 11/22: Continue wound care, [facility] and medihoney. Continue repositioning of patient q2H. dolphin mattress. Heel air boots. (9) Prophylactic measure Current Visit: Yes Status: Acute Comment: Lovenox 40 SC daily Pepcid 20 mg PO BID [facility] <Rashel Rodrigues - Last Filed: 11/26/15 17:11> Objective - Vital Signs/Intake and Output Vital Signs (last 24 hours): Vital Signs - 24 hr 11/25/15 11/25/15 11/26/15 20:17 21:38 06:00 Temperature 98.8 F 97.9 F Pulse Rate 106 H 96 H 96 H Respiratory 19 20 Rate Blood Pressure 118/76 108/76 O2 Sat by Pulse 99 96 Oximetry 11/26/15 13:41 Temperature 98.9 F Pulse Rate 91 H Respiratory 20 Rate Blood Pressure 121/80 O2 Sat by Pulse 99 Oximetry Intake and Output (last 12 hours): Intake & Output 11/25/15 11/26/15 11/26/15 18:59 06:59 18:59 Intake Total 1630 Output Total 200 200 200 Balance 1430 -200 -200 Intake: Intake, IV Amount 600 Left Hand 600 Tube Feeding 1030 Output: Urine 200 200 200 Urethral ([place]) 200 200 200 - Medications Medications: Current Medications Albuterol/Ipratropium (Duoneb 3 Mg/0.5 Mg (3 Ml) Ud) 3 ml INH RQ6 [facility] Last Admin: 11/26/15 13:06 Dose: 3 ml Aspirin (Aspirin) 325 mg PO DAILY [facility] Last Admin: 11/23/15 09:42 Dose: 325 mg Clopidogrel Bisulfate (Plavix) 75 mg PO DAILY [facility] Last Admin: 11/24/15 11:02 Dose: 75 mg Enoxaparin Sodium (Lovenox) 40 mg SC DAILY [facility] Last Admin: 11/23/15 09:42 Dose: 40 mg Famotidine (Pepcid) 20 mg PO BID [facility] Last Admin: 11/26/15 10:30 Dose: 20 mg Sodium Chloride (Sodium Chloride 0.9%) 1,000 mls @ 50 mls/hr IV .Q20H [facility] Last Admin: 11/26/15 05:29 Dose: 50 mls/hr Piperacillin Sod/Tazobactam Sod (Zosyn 3.375 Gm Iv) 50 mls @ 100 mls/hr IVPB Q6H [facility] Last Admin: 11/26/15 09:00 Dose: 100 mls/hr Lactobacillus Acidophilus (Bacid Acidophilus) 1 cap PO BID [facility] Last Admin: 11/25/15 18:35 Dose: 1 cap Lisinopril (Zestril) 5 mg PO DAILY [facility] Last Admin: 11/26/15 10:30 Dose: 5 mg Phenytoin (Dilantin) 100 mg PEG TID [facility] Last Admin: 11/26/15 10:30 Dose: 100 mg Polyethylene Glycol (Miralax) 17 gm PEG BID [facility] Last Admin: 08/21/15 11:26 Dose: Not Given - Labs Labs (last 24 hours): Laboratory Results - last 24 hr 11/26/15 07:07 WBC 16.9 H RBC 3.78 L Hgb 11.6 L Hct 35.4 MCV 93.5 MCH 30.6 MCHC 32.7 L RDW 14.6 H Plt Count 369 MPV 8.6 Neut % (Auto) 69.1 Lymph % (Auto) 7.9 L Gove % (Auto) 8.0 Eos % (Auto) 14.8 H Baso % (Auto) 0.2 Neut # 11.7 H Lymph # 1.3 Gove # 1.4 H Eos # 2.5 H Baso # 0.0 Neutrophils % (Manual) 68 Lymphocytes % (Manual) 10 L Monocytes % (Manual) 8 Eosinophils % (Manual) 14 H Toxic Granulation Present Platelet Estimate Normal Large Platelets Present RBC Morphology Normal Sodium 142 Potassium 3.9 Chloride 102 Carbon Dioxide 27 Anion Gap 16 BUN 28 H Creatinine 0.6 L Est GFR ( Amer) > 60 Est GFR (Non-Af Amer) > 60 Random Glucose 129 H Calcium 8.6 Total Bilirubin 0.7 AST 29 ALT 60 Alkaline Phosphatase 102 Total Protein 6.9 Albumin 3.2 L Globulin 3.7 Albumin/Globulin Ratio 0.9 L Assessment/Plan (1) Anoxic encephalopathy Current Visit: Yes Status: Chronic Comment: No acute change in mental status. patient with trach in place. Patient with PEG tube. Pending placement (2) STEMI (ST elevation myocardial infarction) Current Visit: Yes Status: Acute Comment: cardiac stents on 06/13/15. Continue Lisinopril 5mg PO daily Continue Plavix 75mg PO daily Continue ASA 325mg PO daily (3) Respiratory failure Current Visit: Yes Status: Acute Comment: Pt to have bronchoscopy tomorrow with possible tube change with Dr. Chan (4) Seizures Current Visit: Yes Status: Acute Comment: Continue dilantin 100mg via PEG TID (5) Prophylactic measure Current Visit: Yes Status: Acute Comment: Lovenox 40 SC daily Pepcid 20 mg PO BID SCD[facility] (6) Bed sore Current Visit: Yes Status: Acute Comment: Continue wound care, [facility] and medihoney. Continue repositioning of patient q2H. dolphin mattress. Heel air boots. 11/19: Continue wound care and current management. 11/16: Continue current management of wound care. 11/15: Continue wound care, [facility]icare and medihoney. 11/13: Continue to improve. Continue wound care, [facility]icare and medihoney. 11/09: Continue wound care. 11/06: Visualized today. Continue wound care. 11/02: Continue wound care. Will check 1x a week. 10/23: Improving, continue wound care. 10/22: -wound care following patient 10/19: -examined today -continue treatment with [facility] and Med[facility] as per Wound Care 10/12--> cont LWC as per Plastic and Wound care team 10/10: Wound care recommendations: [facility] to buttocks around ulcer, MediHoney to necrotic tissue, Position Q2 hours, Recall when necrotic tissue is soft/loose for debridement 10/09: sacral ulcer, stage 3 Dr. Panchal consulted, f/u recommendations 08/09- stage one ulcer, healed, per nursing. continue repositioning of patient q2H dolphin mattress Attending/Attestation - Attestation I have personally seen and examined this patient.: Yes I have fully participated in the care of the patient.: Yes I have reviewed all pertinent clinical information: Yes Notes (Text): 11/26/15 17:03 Patient was seen and examined during the round with residents. She'll condition remained the same. No more active bleeding from trach site. There were some small more off Dr. Don Quigley mucus during dissection. Discussed with CT surgery who will do FOB and tracheostomy tube change tomorrow. Patient condition were discussed at length with patient family his daughter was and his brother and they all agree with the plan Patient family appreciated with current management plan. Patient family and case management has discussed and there were issue with the discharge planning and placement. I will discussed with patient advise tomorrow about the placement issue. Follow-up with colonoscopy finding currently patient is not ready to be discharged due to acute recent tracheostomy bleeding..
--- NOTE | 2015-11-26 13:55 | CP.PCM.PN ---
Subjective - Subjective Subjective: Patient seen and examined at bedside. Pt unresponsive to verbal stimuli but opens eyes. Dark brown/red mucous on suction - no blood seen at trach site. Dr. Chan to perform bronchoscopy tomorrow - possible change to fenestrated trach. Afebrile. Objective - Vital Signs/Intake and Output Vital Signs (last 24 hours): Vital Signs - 24 hr 11/25/15 11/25/15 11/25/15 14:14 20:17 21:38 Temperature 98.6 F 98.8 F Pulse Rate 106 H 106 H 96 H Respiratory 20 19 Rate Blood Pressure 108/78 118/76 O2 Sat by Pulse 98 99 Oximetry 11/26/15 11/26/15 06:00 13:41 Temperature 97.9 F 98.9 F Pulse Rate 96 H 91 H Respiratory 20 20 Rate Blood Pressure 108/76 121/80 O2 Sat by Pulse 96 99 Oximetry Intake and Output (last 12 hours): Intake & Output 11/25/15 11/26/15 11/26/15 18:59 06:59 18:59 Intake Total 1630 Output Total 200 200 200 Balance 1430 -200 -200 Intake: Intake, IV Amount 600 Left Hand 600 Tube Feeding 1030 Output: Urine 200 200 200 Urethral (Yoo) 200 200 200 - Medications Medications: Current Medications Albuterol/Ipratropium (Duoneb 3 Mg/0.5 Mg (3 Ml) Ud) 3 ml INH RQ6 [facility] Last Admin: 11/26/15 13:06 Dose: 3 ml Aspirin (Aspirin) 325 mg PO DAILY [facility] Last Admin: 11/23/15 09:42 Dose: 325 mg Clopidogrel Bisulfate (Plavix) 75 mg PO DAILY [facility] Last Admin: 11/24/15 11:02 Dose: 75 mg Enoxaparin Sodium (Lovenox) 40 mg SC DAILY [facility] Last Admin: 11/23/15 09:42 Dose: 40 mg Famotidine (Pepcid) 20 mg PO BID [facility] Last Admin: 11/26/15 10:30 Dose: 20 mg Sodium Chloride (Sodium Chloride 0.9%) 1,000 mls @ 50 mls/hr IV .Q20H [facility] Last Admin: 11/26/15 05:29 Dose: 50 mls/hr Piperacillin Sod/Tazobactam Sod (Zosyn 3.375 Gm Iv) 50 mls @ 100 mls/hr IVPB Q6H [facility] Last Admin: 11/26/15 09:00 Dose: 100 mls/hr Lactobacillus Acidophilus (Bacid Acidophilus) 1 cap PO BID [facility] Last Admin: 11/25/15 18:35 Dose: 1 cap Lisinopril (Zestril) 5 mg PO DAILY [facility] Last Admin: 11/26/15 10:30 Dose: 5 mg Phenytoin (Dilantin) 100 mg PEG TID [facility] Last Admin: 11/26/15 10:30 Dose: 100 mg Polyethylene Glycol (Miralax) 17 gm PEG BID [facility] Last Admin: 08/21/15 11:26 Dose: Not Given - Labs Labs (last 24 hours): Laboratory Results - last 24 hr 11/26/15 07:07 WBC 16.9 H RBC 3.78 L Hgb 11.6 L Hct 35.4 MCV 93.5 MCH 30.6 MCHC 32.7 L RDW 14.6 H Plt Count 369 MPV 8.6 Neut % (Auto) 69.1 Lymph % (Auto) 7.9 L [place] % (Auto) 8.0 Eos % (Auto) 14.8 H Baso % (Auto) 0.2 Neut # 11.7 H Lymph # 1.3 [place] # 1.4 H Eos # 2.5 H Baso # 0.0 Neutrophils % (Manual) 68 Lymphocytes % (Manual) 10 L Monocytes % (Manual) 8 Eosinophils % (Manual) 14 H Toxic Granulation Present Platelet Estimate Normal Large Platelets Present RBC Morphology Normal Sodium 142 Potassium 3.9 Chloride 102 Carbon Dioxide 27 Anion Gap 16 BUN 28 H Creatinine 0.6 L Est GFR ( Amer) > 60 Est GFR (Non-Af Amer) > 60 Random Glucose 129 H Calcium 8.6 Total Bilirubin 0.7 AST 29 ALT 60 Alkaline Phosphatase 102 Total Protein 6.9 Albumin 3.2 L Globulin 3.7 Albumin/Globulin Ratio 0.9 L - Constitutional Appears: Chronically Ill - Head Exam Head Exam: ATRAUMATIC, NORMOCEPHALIC - Eye Exam Eye Exam: EOMI Pupil Exam: PERRL - ENT Exam ENT Exam: Mucous Membranes Dry - Neck Exam Additional comments: No blood at trach site. Dark brown/red mucous in suction. - Respiratory Exam Respiratory Exam: Clear to PA & Lateral, NORMAL BREATHING PATTERN Additional comments: Pt on ventilator. - Cardiovascular Exam Cardiovascular Exam: REGULAR RHYTHM, +S1, +S2 - GI/Abdominal Exam GI & Abdominal Exam: Normal Bowel Sounds, Soft. absent: Tenderness - Extremities Exam Extremities exam: pedal edema, pedal pulses present - Neurological Exam Neurological exam: Altered - Skin Skin Exam: Dry, Normal Color Assessment/Plan (1) Respiratory failure Current Visit: Yes Status: Acute Comment: Pt to have bronchoscopy tomorrow with possible tube change with Dr. Chan (2) Anoxic encephalopathy Current Visit: Yes Status: Chronic Comment: No acute change in mental status. patient with trach in place. Patient with PEG tube. Pending placement (3) Bronchopneumonia Current Visit: Yes Status: Acute Comment: s/p treatment with Zosyn leukocytosis resolved patient afebrile monitor (4) Cardiac arrest Current Visit: Yes Status: Acute Comment: s/p V-Tach arrest Continue ASA 325mg PO daily Continue Plavix 75mg PO daily Continue Lisinopril 5mg PO daily s/p trach and PEG (5) STEMI (ST elevation myocardial infarction) Current Visit: Yes Status: Acute Comment: cardiac stents on 06/13/15. Continue Lisinopril 5mg PO daily Continue Plavix 75mg PO daily Continue ASA 325mg PO daily
[2015-11-27] MEDS: Albuterol-Ipratrop 3 mg / 0.5 (3 ml) UD INH SCH ×4 (01:08→19:22)
[2015-11-27] MEDS: Piperacill/Tazo 3.375gm in Dex 50 ML IVPB SCH ×5 (03:00→21:39)
[2015-11-27] MEDS: Sodium Chloride 0.9% 1,000 ML IV SCH (04:00)
[2015-11-27 07:36] LABS: BASO % 0.1 % (0.0-2.0); EOS # 2.4 K/uL (0.0-0.7); EOS % 17.9 % (0.0-4.0); HEMOGLOBIN 10.7 g/dL (12.0-18.0); LYMPH # 1.1 K/uL (1.0-4.3); MEAN CORPUSCULAR HEMOGLOBIN 31.3 pg (27.0-31.0); MEAN CORPUSCULAR HGB CONC 33.7 g/dL (33.0-37.0); MEAN PLATELET VOLUME 8.4 fL (7.2-11.7); MONO # 1.1 K/uL (0.0-0.8); MONO % 8.5 % (0.0-10.0); NEUT # 8.6 K/uL (1.8-7.0); NEUT % 65.5 % (50.0-75.0); PLATELET COUNT 361 K/uL (130-400); RBC 3.41 Mil/uL (4.40-5.90); RED CELL DISTRIBUTION WIDTH 14.2 % (11.5-14.5); WHITE BLOOD COUNT 13.1 K/uL (4.8-10.8)
[2015-11-27 08:01] LABS: ALBUMIN 3.1 g/dL (3.5-5.0)
[2015-11-27 08:04] LABS: ALB/GLOB RATIO 0.8 (1.0-2.1); AST/SGOT 23 U/L (17-59); GFR NON-AFRICAN AMERICAN > 60
[2015-11-27 08:05] LABS: ALT/SGPT 49 U/L (21-72); BLOOD UREA NITROGEN 27 mg/dL (9-20); CALCIUM 8.6 mg/dL (8.4-10.2)
[2015-11-27 09:19] LABS: ANISOCYTOSIS SLIGHT; EOSINOPHIL 18 % (0-4); HYPOCHROMIC SLIGHT; LYMPHOCYTE 9 % (20-40); MONOCYTE 5 % (0-10); NEUTROPHIL 68 % (50-75); PLATELET ESTIMATE NORMAL (NORMAL); POIKILOCYTOSIS SLIGHT; TOTAL CELLS COUNTED 100
[2015-11-27 09:20] LABS: TOXIC GRANULATION PRESENT
[2015-11-27] MEDS: Lactobacillus Acidophilus 500 MU Cap PO SCH ×2 (09:35→17:44)
[2015-11-27] MEDS: Phenytoin 100 mg/4 ml Oral Susp UD PEG SCH ×3 (09:35→17:44)
--- NOTE | 2015-11-27 15:18 | CP.PCM.PN ---
<Sandra Mercedes - Last Filed: 11/27/15 15:15> Subjective - Subjective Subjective: Medicine Note Pt seen and examined in AM. No visible blood seen in trach, suction has about 750cc of red/brown mucous material. Pt is scheduled to have bronchoscopy and possible trach change today with Dr. Chan. Unable to obtain ROS. Review of Systems - Review of Systems Systems not reviewed;Unavailable: Altered Mental Status Objective - Vital Signs/Intake and Output Vital Signs (last 24 hours): Vital Signs - 24 hr 11/26/15 11/26/15 11/27/15 21:26 21:27 06:02 Temperature 98.2 F 98.1 F Pulse Rate 93 H 91 H 94 H Respiratory 18 18 Rate Blood Pressure 124/82 127/69 O2 Sat by Pulse 100 98 Oximetry 11/27/15 11/27/15 11/27/15 14:20 14:25 14:30 Temperature 97.9 F 97.8 F Pulse Rate 85 89 86 Respiratory 12 20 13 Rate Blood Pressure 137/86 124/82 135/86 O2 Sat by Pulse 100 99 100 Oximetry 11/27/15 11/27/15 14:45 15:00 Temperature Pulse Rate 90 89 Respiratory 12 10 L Rate Blood Pressure 142/94 H 146/86 O2 Sat by Pulse 100 100 Oximetry Intake and Output (last 12 hours): Intake & Output 11/26/15 11/27/15 11/27/15 18:59 06:59 18:59 Output Total 200 350 200 Balance -200 -350 -200 Output: Urine 200 350 200 Urethral (Yoo) 200 350 200 - Medications Medications: Current Medications Albuterol/Ipratropium (Duoneb 3 Mg/0.5 Mg (3 Ml) Ud) 3 ml INH RQ6 [facility] Last Admin: 11/27/15 13:56 Dose: 3 ml Aspirin (Aspirin) 325 mg PO DAILY [facility] Last Admin: 11/23/15 09:42 Dose: 325 mg Clopidogrel Bisulfate (Plavix) 75 mg PO DAILY [facility] Last Admin: 11/24/15 11:02 Dose: 75 mg Enoxaparin Sodium (Lovenox) 40 mg SC DAILY [facility] Last Admin: 11/23/15 09:42 Dose: 40 mg Famotidine (Pepcid) 20 mg PO BID [facility] Last Admin: 11/27/15 09:35 Dose: Not Given Sodium Chloride (Sodium Chloride 0.9%) 1,000 mls @ 50 mls/hr IV .Q20H [facility] Last Admin: 11/27/15 04:00 Dose: 50 mls/hr Piperacillin Sod/Tazobactam Sod (Zosyn 3.375 Gm Iv) 50 mls @ 100 mls/hr IVPB Q6H [facility] Last Admin: 11/27/15 09:33 Dose: 100 mls/hr Lactobacillus Acidophilus (Bacid Acidophilus) 1 cap PO BID [facility] Last Admin: 11/27/15 09:35 Dose: Not Given Lisinopril (Zestril) 5 mg PO DAILY [facility] Last Admin: 11/27/15 09:35 Dose: Not Given Phenytoin (Dilantin) 100 mg PEG TID [facility] Last Admin: 11/27/15 13:49 Dose: Not Given Polyethylene Glycol (Miralax) 17 gm PEG BID [facility] Last Admin: 08/21/15 11:26 Dose: Not Given - Labs Labs (last 24 hours): Laboratory Results - last 24 hr 11/27/15 07:24 WBC 13.1 H RBC 3.41 L Hgb 10.7 L Hct 31.7 L MCV 93.0 MCH 31.3 H MCHC 33.7 RDW 14.2 Plt Count 361 MPV 8.4 Neut % (Auto) 65.5 Lymph % (Auto) 8.0 L Cross % (Auto) 8.5 Eos % (Auto) 17.9 H Baso % (Auto) 0.1 Neut # 8.6 H Lymph # 1.1 Cross # 1.1 H Eos # 2.4 H Baso # 0.0 Neutrophils % (Manual) 68 Lymphocytes % (Manual) 9 L Monocytes % (Manual) 5 Eosinophils % (Manual) 18 H Toxic Granulation Present Platelet Estimate Normal Hypochromasia (manual) Slight Poikilocytosis (manual Slight Anisocytosis (manual) Slight Sodium 141 Potassium 3.4 L Chloride 105 Carbon Dioxide 27 Anion Gap 12 BUN 27 H Creatinine 0.6 L Est GFR ( Amer) > 60 Est GFR (Non-Af Amer) > 60 Random Glucose 123 H Calcium 8.6 Total Bilirubin 0.6 AST 23 ALT 49 Alkaline Phosphatase 97 Total Protein 6.9 Albumin 3.1 L Globulin 3.8 Albumin/Globulin Ratio 0.8 L - Constitutional Appears: Chronically Ill - Head Exam Head Exam: NORMAL INSPECTION, NORMOCEPHALIC - Eye Exam Eye Exam: Normal appearance Pupil Exam: PERRL - Respiratory Exam Respiratory Exam: Clear to PA & Lateral, NORMAL BREATHING PATTERN - Cardiovascular Exam Cardiovascular Exam: REGULAR RHYTHM, +S1, +S2 - GI/Abdominal Exam GI & Abdominal Exam: Normal Bowel Sounds, Soft - Extremities Exam Extremities exam: pedal pulses present - Neurological Exam Neurological exam: Altered - Skin Skin Exam: Dry, Normal Color Assessment/Plan (1) Respiratory failure Current Visit: Yes Status: Acute Comment: Pt to have bronchoscopy today with possible tube change with Dr. Chan Monitor (2) Anoxic encephalopathy Assessment and plan: Current Visit: Yes Status: Chronic Comment: No acute change in mental status. patient with trach in place. Patient with PEG tube. Pending placement (3) Low hemoglobin Current Visit: Yes Status: Acute Comment: Recent Hgb 10.7, decreasing No evidence of megan red blood in trach today Monitor (4) Leukocytosis Current Visit: Yes Status: Acute Comment: WBC 13.1, decreasing with no left shift Urine cx (11/22) shows pseudomonas aerg. Continue Zosyn IVPB Q6H Continue to monitor Previous findings: UA 11/16 positive. Urine Cx 11/16 positive for Klebsiella. s/p Rocephin IVPB for 5 days. (5) STEMI (ST elevation myocardial infarction) Current Visit: Yes Status: Acute Comment: cardiac stents on 06/13/15. Continue Lisinopril 5mg PO daily Continue Plavix 75mg PO daily Continue ASA 325mg PO daily (6) Seizures Current Visit: Yes Status: Acute Comment: Continue dilantin 100mg via PEG TID (7) Bed sore Current Visit: Yes Status: Acute Comment: Continue wound care, sensicare and medihoney. Continue repositioning of patient q2H. dolphin mattress. Heel air boots. 11/19: Continue wound care and current management. 11/16: Continue current management of wound care. 11/15: Continue wound care, sensicare and medihoney. 11/13: Continue to improve. Continue wound care, [facility]icare and medihoney. 11/09: Continue wound care. 11/06: Visualized today. Continue wound care. 11/02: Continue wound care. Will check 1x a week. 10/23: Improving, continue wound care. 10/22: -wound care following patient 10/19: -examined today -continue treatment with [facility] and Medihoney as per Wound Care 10/12--> cont LWC as per Plastic and Wound care team 10/10: Wound care recommendations: S[facility]iCare to buttocks around ulcer, MediHoney to necrotic tissue, Position Q2 hours, Recall when necrotic tissue is soft/loose for debridement 10/09: sacral ulcer, stage [address] Dr. Panchal consulted, f/u recommendations 08/09- stage one ulcer, healed, per nursing. continue repositioning of patient q2H dolphin mattress (8) Deep tissue injury Current Visit: Yes Status: Acute Comment: Continue wound care Qshift 11/22: Continue wound care, [facility] and medihoney. Continue repositioning of patient q2H. dolphin mattress. Heel air boots. (9) Prophylactic measure Current Visit: Yes Status: Acute Comment: Lovenox 40 SC daily Pepcid 20 mg PO BID [facility] <Rashel Rodrigues - Last Filed: 11/28/15 06:53> Objective - Vital Signs/Intake and Output Vital Signs (last 24 hours): Vital Signs - 24 hr 11/26/15 11/26/15 11/27/15 21:26 21:27 06:02 Temperature 98.2 F 98.1 F Pulse Rate 93 H 91 H 94 H Respiratory 18 18 Rate Blood Pressure 124/82 127/69 O2 Sat by Pulse 100 98 Oximetry 11/27/15 11/27/15 11/27/15 14:20 14:25 14:30 Temperature 97.9 F 97.8 F Pulse Rate 85 89 86 Respiratory 12 20 13 Rate Blood Pressure 137/86 124/82 135/86 O2 Sat by Pulse 100 99 100 Oximetry 11/27/15 11/27/15 11/27/15 14:45 15:00 15:18 Temperature Pulse Rate 90 89 90 Respiratory 12 10 L 10 L Rate Blood Pressure 142/94 H 146/86 141/96 H O2 Sat by Pulse 100 100 100 Oximetry 11/27/15 11/27/15 11/27/15 15:36 15:45 16:00 Temperature Pulse Rate 88 88 89 Respiratory 21 24 21 Rate Blood Pressure 129/88 122/83 131/85 O2 Sat by Pulse 100 100 100 Oximetry 11/27/15 11/27/15 11/27/15 16:15 16:30 17:19 Temperature 98.2 F 98.9 F Pulse Rate 91 H 89 89 Respiratory 21 22 18 Rate Blood Pressure 141/84 135/90 163/73 H O2 Sat by Pulse 100 100 100 Oximetry Intake and Output (last 12 hours): Intake & Output 11/26/15 11/27/15 11/27/15 18:59 06:59 18:59 Output Total 200 350 300 Balance -200 -350 -300 Output: Urine 200 350 300 Urethral (Yoo) 200 350 200 - Medications Medications: Current Medications Albuterol/Ipratropium (Duoneb 3 Mg/0.5 Mg (3 Ml) Ud) 3 ml INH RQ6 [facility] Last Admin: 11/27/15 13:56 Dose: 3 ml Aspirin (Aspirin) 325 mg PO DAILY [facility] Last Admin: 11/23/15 09:42 Dose: 325 mg Clopidogrel Bisulfate (Plavix) 75 mg PO DAILY [facility] Last Admin: 11/24/15 11:02 Dose: 75 mg Enoxaparin Sodium (Lovenox) 40 mg SC DAILY [facility] Last Admin: 11/23/15 09:42 Dose: 40 mg Famotidine (Pepcid) 20 mg PO BID [facility] Last Admin: 11/27/15 17:44 Dose: 20 mg Sodium Chloride (Sodium Chloride 0.9%) 1,000 mls @ 50 mls/hr IV .Q20H [facility] Last Admin: 11/27/15 04:00 Dose: 50 mls/hr Piperacillin Sod/Tazobactam Sod (Zosyn 3.375 Gm Iv) 50 mls @ 100 mls/hr IVPB Q6H [facility] Last Admin: 11/27/15 17:45 Dose: 100 mls/hr Lactobacillus Acidophilus (Bacid Acidophilus) 1 cap PO BID [facility] Last Admin: 11/27/15 17:44 Dose: 1 cap Lisinopril (Zestril) 5 mg PO DAILY [facility] Last Admin: 11/27/15 09:35 Dose: Not Given Phenytoin (Dilantin) 100 mg PEG TID [facility] Last Admin: 11/27/15 17:44 Dose: 100 mg Polyethylene Glycol (Miralax) 17 gm PEG BID [facility] Last Admin: 08/21/15 11:26 Dose: Not Given - Labs Labs (last 24 hours): Laboratory Results - last 24 hr 11/27/15 07:24 WBC 13.1 H RBC 3.41 L Hgb 10.7 L Hct 31.7 L MCV 93.0 MCH 31.3 H MCHC 33.7 RDW 14.2 Plt Count 361 MPV 8.4 Neut % (Auto) 65.5 Lymph % (Auto) 8.0 L Cross % (Auto) 8.5 Eos % (Auto) 17.9 H Baso % (Auto) 0.1 Neut # 8.6 H Lymph # 1.1 Cross # 1.1 H Eos # 2.4 H Baso # 0.0 Neutrophils % (Manual) 68 Lymphocytes % (Manual) 9 L Monocytes % (Manual) 5 Eosinophils % (Manual) 18 H Toxic Granulation Present Platelet Estimate Normal Hypochromasia (manual) Slight Poikilocytosis (manual Slight Anisocytosis (manual) Slight Sodium 141 Potassium 3.4 L Chloride 105 Carbon Dioxide 27 Anion Gap 12 BUN 27 H Creatinine 0.6 L Est GFR ( Amer) > 60 Est GFR (Non-Af Amer) > 60 Random Glucose 123 H Calcium 8.6 Total Bilirubin 0.6 AST 23 ALT 49 Alkaline Phosphatase 97 Total Protein 6.9 Albumin 3.1 L Globulin 3.8 Albumin/Globulin Ratio 0.8 L Assessment/Plan (1) Anoxic encephalopathy Current Visit: Yes Status: Chronic Comment: No acute change in mental status. patient with trach in place. Patient with PEG tube. Pending placement (2) STEMI (ST elevation myocardial infarction) Current Visit: Yes Status: Acute Comment: cardiac stents on 06/13/15. Continue Lisinopril 5mg PO daily Continue Plavix 75mg PO daily Continue ASA 325mg PO daily (3) Respiratory failure Current Visit: Yes Status: Acute Comment: Pt to have bronchoscopy today with possible tube change with Dr. Chan Monitor (4) Seizures Current Visit: Yes Status: Acute Comment: Continue dilantin 100mg via PEG TID (5) Prophylactic measure Current Visit: Yes Status: Acute Comment: Lovenox 40 SC daily Pepcid 20 mg PO BID [facility] (6) Bed sore Current Visit: Yes Status: Acute Comment: Continue wound care, [facility] and [facility]. Continue repositioning of patient q2H. dolphin mattress. Heel air boots. 11/19: Continue wound care and current management. 11/16: Continue current management of wound care. 11/15: Continue wound care, [facility]icare and medihoney. 11/13: Continue to improve. Continue wound care, [facility] and medihoney. 11/09: Continue wound care. 11/06: Visualized today. Continue wound care. 11/02: Continue wound care. Will check 1x a week. 10/23: Improving, continue wound care. 10/22: -wound care following patient 10/19: -examined today -continue treatment with S[facility] and Medihoney as per Wound Care 10/12--> cont LWC as per Plastic and Wound care team 10/10: Wound care recommendations: S[facility]iCare to buttocks around ulcer, MediHoney to necrotic tissue, Position Q2 hours, Recall when necrotic tissue is soft/loose for debridement 10/09: sacral ulcer, stage [address] Dr. Panchal consulted, f/u recommendations 08/09- stage one ulcer, healed, per nursing. continue repositioning of patient q2H delores sibley Attending/Attestation - Attestation I have personally seen and examined this patient.: Yes I have fully participated in the care of the patient.: Yes I have reviewed all pertinent clinical information: Yes Notes (Text): 11/27/15 18:01 She was seen and examined during the round with resident. pt went for FOB nad trach exchange in OR by CT Sx team. no new complaint, vitals stable, monitor cont supportive mx.
--- NOTE | 2015-11-27 16:20 | PCM.SURG1 ---
Surgeon's Initial Post Op Note - Surgeon's Notes Surgeon: Rocio Neon Molder: PGY1 Type of Anesthesia: General Tracheostomy Pre-Operative Diagnosis: Bleeding from tracheostomy Operative Findings: Exchanged tracheostomy tube Post-Operative Diagnosis: Bleeding from tracheostomy Operation Performed: Bronchoscopy, Bronchoalveolar lavage, Tracheostomy exchange Specimen/Specimens Removed: none Estimated Blood Loss: EBL {In ML}: 2 Blood Products Given: N/A Drains Used: No Drains Post-Op Condition: Good Date of Surgery/Procedure: 11/27/15 Time of Surgery/Procedure: 13:30
[2015-11-28] MEDS: Sodium Chloride 0.9% 1,000 ML IV SCH (01:22)
[2015-11-28] MEDS: Albuterol-Ipratrop 3 mg / 0.5 (3 ml) UD INH SCH ×4 (01:23→19:02)
--- NOTE | 2015-11-28 02:15 | OP ---
PROCEDURE DATE: 11/27/2015 PREOPERATIVE DIAGNOSES: 1. Bloody secretions from tracheostomy tube. 2. Anoxic brain injury. POSTOPERATIVE DIAGNOSES: 1. Bloody secretions from tracheostomy tube. 2. Anoxic brain injury. PROCEDURES: 1. Bronchoscopy with bronchoalveolar lavage. 2. Tracheostomy tube exchange. ATTENDING SURGEON: Blair Chan MD LEGAL ADVISOR: Reji Rangel DO ANESTHESIA: General. INDICATION: The patient is a 65-year-old male who sustained anoxic brain injury and underwent a perc utaneous tracheostomy about 6 months ago. Four days ago, the patient was noted to have bloody secret ions from his tracheostomy after suctioning. This subsided. However, we felt that a bronchoscopy wo uld be indicated to evaluate the tracheal mucosa and downsize the tracheostomy simultaneously. Infor med consent was obtained from the patient's family after risks and benefits of the procedure were sahra cribed in detail including bleeding and infection. DESCRIPTION OF PROCEDURE: The patient was placed supine and kept in his floor bed. Flexible broncho scopy was done through the tracheostomy and this did not show any evidence of mucosal laceration or h ematoma. Thick secretions were noted and these were aspirated. A bronchoalveolar lavage was perform ed and submitted for Gram stain and culture. No evidence of strictures or endoluminal masses were no melecio. At the conclusion of the procedure, the 8-Ukrainian cuffed Shiley tracheostomy was removed and a 6 -Ukrainian fenestrated Shiley tracheostomy was placed. The patient tolerated the procedure well and was taken back in satisfactory condition back to the recovery room. All instruments and sponge counts w ere correct at the completion of the case. Blair Chan MD cc: [id number] TT: 11/28/2015 02:16:16 an
[2015-11-28] MEDS: Piperacill/Tazo 3.375gm in Dex 50 ML IVPB SCH ×4 (03:00→20:08)
[2015-11-28] MEDS: Phenytoin 100 mg/4 ml Oral Susp UD PEG SCH ×3 (09:08→17:57)
[2015-11-28] MEDS: Lactobacillus Acidophilus 500 MU Cap PO SCH ×2 (09:09→17:57)
--- NOTE | 2015-11-28 11:05 | CP.PCM.PN ---
<Sandra Mercedes - Last Filed: 11/28/15 10:57> Subjective - Subjective Subjective: Medicine Note Pt seen and examined in AM. Pt is s/p bronchoscopy with trach change from 8 to 6 yesterday. As per nursing, pt did not have blood or red mucous on suctioning. Pt's mental status remains the same. Unable to obtain ROS. Review of Systems - Review of Systems Systems not reviewed;Unavailable: Altered Mental Status Objective - Vital Signs/Intake and Output Vital Signs (last 24 hours): Vital Signs - 24 hr 11/27/15 11/27/15 11/27/15 14:20 14:25 14:30 Temperature 97.9 F 97.8 F Pulse Rate 85 89 86 Respiratory 12 20 13 Rate Blood Pressure 137/86 124/82 135/86 O2 Sat by Pulse 100 99 100 Oximetry 11/27/15 11/27/15 11/27/15 14:45 15:00 15:18 Temperature Pulse Rate 90 89 90 Respiratory 12 10 L 10 L Rate Blood Pressure 142/94 H 146/86 141/96 H O2 Sat by Pulse 100 100 100 Oximetry 11/27/15 11/27/15 11/27/15 15:36 15:45 16:00 Temperature Pulse Rate 88 88 89 Respiratory 21 24 21 Rate Blood Pressure 129/88 122/83 131/85 O2 Sat by Pulse 100 100 100 Oximetry 11/27/15 11/27/15 11/27/15 16:15 16:30 17:19 Temperature 98.2 F 98.9 F Pulse Rate 91 H 89 89 Respiratory 21 22 18 Rate Blood Pressure 141/84 135/90 163/73 H O2 Sat by Pulse 100 100 100 Oximetry 11/27/15 11/28/15 20:26 05:55 Temperature 98.4 F 97.4 F L Pulse Rate 80 91 H Respiratory 23 20 Rate Blood Pressure 152/83 H 137/71 O2 Sat by Pulse 100 98 Oximetry Intake and Output (last 12 hours): Intake & Output 11/27/15 11/28/15 11/28/15 18:59 06:59 18:59 Intake Total 350 Output Total 300 400 Balance 50 -400 Intake: Intake, IV Amount 350 Left Hand 350 Output: Urine 300 400 Urethral (Yoo) 200 400 - Medications Medications: Current Medications Albuterol/Ipratropium (Duoneb 3 Mg/0.5 Mg (3 Ml) Ud) 3 ml INH RQ6 [facility] Last Admin: 11/28/15 07:41 Dose: 3 ml Aspirin (Aspirin) 325 mg PO DAILY [facility] Last Admin: 11/23/15 09:42 Dose: 325 mg Clopidogrel Bisulfate (Plavix) 75 mg PO DAILY [facility] Last Admin: 11/24/15 11:02 Dose: 75 mg Enoxaparin Sodium (Lovenox) 40 mg SC DAILY [facility] Last Admin: 11/23/15 09:42 Dose: 40 mg Famotidine (Pepcid) 20 mg PO BID [facility] Last Admin: 11/28/15 09:08 Dose: 20 mg Piperacillin Sod/Tazobactam Sod (Zosyn 3.375 Gm Iv) 50 mls @ 100 mls/hr IVPB Q6H [facility] Last Admin: 11/28/15 09:05 Dose: 100 mls/hr Lactobacillus Acidophilus (Bacid Acidophilus) 1 cap PO BID [facility] Last Admin: 11/28/15 09:09 Dose: 1 cap Lisinopril (Zestril) 5 mg PO DAILY [facility] Last Admin: 11/28/15 09:08 Dose: 5 mg Phenytoin (Dilantin) 100 mg PEG TID [facility] Last Admin: 11/28/15 09:08 Dose: 100 mg Polyethylene Glycol (Miralax) 17 gm PEG BID [facility] Last Admin: 08/21/15 11:26 Dose: Not Given - Constitutional Appears: Chronically Ill - Head Exam Head Exam: NORMAL INSPECTION - Eye Exam Eye Exam: Normal appearance Pupil Exam: PERRL - ENT Exam ENT Exam: Mucous Membranes Moist - Respiratory Exam Respiratory Exam: Clear to PA & Lateral, NORMAL BREATHING PATTERN (vent) - Cardiovascular Exam Cardiovascular Exam: REGULAR RHYTHM, +S1, +S2 - GI/Abdominal Exam GI & Abdominal Exam: Normal Bowel Sounds, Soft - Extremities Exam Extremities exam: pedal pulses present - Neurological Exam Neurological exam: Altered - Skin Skin Exam: Dry, Normal Color Assessment/Plan (1) Respiratory failure Current Visit: Yes Status: Acute Comment: S/p bronchoscopy yesterday with tube change with Dr. Chan Decreased secretions, no blood tinged secretions noted Monitor (2) Anoxic encephalopathy Assessment and plan: Current Visit: Yes Status: Chronic Comment: No acute change in mental status. patient with trach in place. Patient with PEG tube. Pending placement (3) Low hemoglobin Current Visit: Yes Status: Acute Comment: Recent Hgb 10.7, decreasing No evidence of megan red blood in trach today Monitor (4) Leukocytosis Current Visit: Yes Status: Acute Comment: WBC 13.1, decreasing with no left shift Urine cx (11/22) shows pseudomonas aerg. Continue Zosyn IVPB Q6H Continue to monitor Previous findings: UA 11/16 positive. Urine Cx 11/16 positive for Klebsiella. s/p Rocephin IVPB for 5 days. (5) STEMI (ST elevation myocardial infarction) Current Visit: Yes Status: Acute Comment: cardiac stents on 06/13/15. Continue Lisinopril 5mg PO daily Continue Plavix 75mg PO daily Continue ASA 325mg PO daily (6) Seizures Current Visit: Yes Status: Acute Comment: Continue dilantin 100mg via PEG TID (7) Bed sore Current Visit: Yes Status: Acute Comment: Continue wound care, [facility]icare and medihoney. Continue repositioning of patient q2H. dolphin mattress. Heel air boots. 11/19: Continue wound care and current management. 11/16: Continue current management of wound care. 11/15: Continue wound care, [facility] and medihoney. 11/13: Continue to improve. Continue wound care, [facility] and [facility]ihoney. 11/09: Continue wound care. 11/06: Visualized today. Continue wound care. 11/02: Continue wound care. Will check 1x a week. 10/23: Improving, continue wound care. 10/22: -wound care following patient 10/19: -examined today -continue treatment with [facility] and [facility] as per Wound Care 10/12--> cont LWC as per Plastic and Wound care team 10/10: Wound care recommendations: S[facility] to buttocks around ulcer, MediHoney to necrotic tissue, Position Q2 hours, Recall when necrotic tissue is soft/loose for debridement 10/09: sacral ulcer, stage [address] Dr. Panchal consulted, f/u recommendations 08/09- stage one ulcer, healed, per nursing. continue repositioning of patient q2H dolphin mattress (8) Deep tissue injury Current Visit: Yes Status: Acute Comment: Continue wound care Qshift 11/22: Continue wound care, [facility] and [facility]ihoney. Continue repositioning of patient q2H. dolphin mattress. Heel air boots. (9) Prophylactic measure Current Visit: Yes Status: Acute Comment: Lovenox 40 SC daily Pepcid 20 mg PO BID [facility] <Rashel Rodrigues - Last Filed: 11/28/15 18:22> Objective - Vital Signs/Intake and Output Vital Signs (last 24 hours): Vital Signs - 24 hr 11/27/15 11/28/15 11/28/15 20:26 05:55 14:00 Temperature 98.4 F 97.4 F L 99 F Pulse Rate 80 91 H 61 Respiratory 23 20 20 Rate Blood Pressure 152/83 H 137/71 96/61 L O2 Sat by Pulse 100 98 94 L Oximetry Intake and Output (last 12 hours): Intake & Output 11/27/15 11/28/15 11/28/15 18:59 06:59 18:59 Intake Total 350 Output Total 300 400 300 Balance 50 -400 -300 Intake: Intake, IV Amount 350 Left Hand 350 Output: Urine 300 400 300 Urethral (Yoo) 200 400 300 - Medications Medications: Current Medications Albuterol/Ipratropium (Duoneb 3 Mg/0.5 Mg (3 Ml) Ud) 3 ml INH RQ6 [facility] Last Admin: 11/28/15 13:25 Dose: 3 ml Aspirin (Aspirin) 325 mg PO DAILY [facility] Last Admin: 11/23/15 09:42 Dose: 325 mg Clopidogrel Bisulfate (Plavix) 75 mg PO DAILY [facility] Last Admin: 11/24/15 11:02 Dose: 75 mg Enoxaparin Sodium (Lovenox) 40 mg SC DAILY [facility] Last Admin: 11/23/15 09:42 Dose: 40 mg Famotidine (Pepcid) 20 mg PO BID [facility] Last Admin: 11/28/15 17:57 Dose: 20 mg Piperacillin Sod/Tazobactam Sod (Zosyn 3.375 Gm Iv) 50 mls @ 100 mls/hr IVPB Q6H [facility] Last Admin: 11/28/15 14:06 Dose: 100 mls/hr Lactobacillus Acidophilus (Bacid Acidophilus) 1 cap PO BID [facility] Last Admin: 11/28/15 17:57 Dose: 1 cap Lisinopril (Zestril) 5 mg PO DAILY [facility] Last Admin: 11/28/15 09:08 Dose: 5 mg Phenytoin (Dilantin) 100 mg PEG TID [facility] Last Admin: 11/28/15 17:57 Dose: 100 mg Polyethylene Glycol (Miralax) 17 gm PEG BID [facility] Last Admin: 08/21/15 11:26 Dose: Not Given Assessment/Plan (1) Anoxic encephalopathy Current Visit: Yes Status: Chronic Comment: No acute change in mental status. patient with trach in place. Patient with PEG tube. Pending placement (2) STEMI (ST elevation myocardial infarction) Current Visit: Yes Status: Acute Comment: cardiac stents on 06/13/15. Continue Lisinopril 5mg PO daily Continue Plavix 75mg PO daily Continue ASA 325mg PO daily (3) Respiratory failure Current Visit: Yes Status: Acute Comment: S/p bronchoscopy yesterday with tube change with Dr. Chan Decreased secretions, no blood tinged secretions noted Monitor (4) Seizures Current Visit: Yes Status: Acute Comment: Continue dilantin 100mg via PEG TID (5) Prophylactic measure Current Visit: Yes Status: Acute Comment: Lovenox 40 SC daily Pepcid 20 mg PO BID [facility] (6) Bed sore Current Visit: Yes Status: Acute Comment: Continue wound care, [facility] and [facility]. Continue repositioning of patient q2H. dolphin mattress. Heel air boots. 11/19: Continue wound care and current management. 11/16: Continue current management of wound care. 11/15: Continue wound care, [facility]icare and medihoney. 11/13: Continue to improve. Continue wound care, [facility] and medihoney. 11/09: Continue wound care. 11/06: Visualized today. Continue wound care. 11/02: Continue wound care. Will check 1x a week. 10/23: Improving, continue wound care. 10/22: -wound care following patient 10/19: -examined today -continue treatment with [facility] and [facility] as per Wound Care 10/12--> cont LWC as per Plastic and Wound care team 10/10: Wound care recommendations: [facility] to buttocks around ulcer, MediHoney to necrotic tissue, Position Q2 hours, Recall when necrotic tissue is soft/loose for debridement 10/09: sacral ulcer, stage 3 Dr. Panchal consulted, f/u recommendations 08/09- stage one ulcer, healed, per nursing. continue repositioning of patient q2H dolphin mattress Attending/Attestation - Attestation I have personally seen and examined this patient.: Yes I have fully participated in the care of the patient.: Yes I have reviewed all pertinent clinical information: Yes Notes (Text): 11/28/15 18:21 Patient was seen and examined during round with resident. She had bronchoscopy done and tracheostomy to has been changing. CT surgery mention the patient had no obvious mucosa laceration or any hematoma no social bleeding was found. There was some mucus aspirated and washed out. Currently patient has normal depleting has been stable in the has been clear no fever by any acute respiratory distress Continue supportive management Continue wound care for sacral sore. We will resume his tube feeding and I will DC his IV fluid
--- NOTE | 2015-11-28 14:42 | CP.PCM.PN ---
Subjective - Subjective Subjective: CT Surgery Pt S&E, NAEO. Tracheostomy. Pt non verbal and unresponsive to stimuli. Review of Systems - Review of Systems Systems not reviewed;Unavailable: Altered Mental Status Objective - Vital Signs/Intake and Output Vital Signs (last 24 hours): Vital Signs - 24 hr 11/27/15 11/27/15 11/27/15 14:45 15:00 15:18 Temperature Pulse Rate 90 89 90 Respiratory 12 10 L 10 L Rate Blood Pressure 142/94 H 146/86 141/96 H O2 Sat by Pulse 100 100 100 Oximetry 11/27/15 11/27/15 11/27/15 15:36 15:45 16:00 Temperature Pulse Rate 88 88 89 Respiratory 21 24 21 Rate Blood Pressure 129/88 122/83 131/85 O2 Sat by Pulse 100 100 100 Oximetry 11/27/15 11/27/15 11/27/15 16:15 16:30 17:19 Temperature 98.2 F 98.9 F Pulse Rate 91 H 89 89 Respiratory 21 22 18 Rate Blood Pressure 141/84 135/90 163/73 H O2 Sat by Pulse 100 100 100 Oximetry 11/27/15 11/28/15 20:26 05:55 Temperature 98.4 F 97.4 F L Pulse Rate 80 91 H Respiratory 23 20 Rate Blood Pressure 152/83 H 137/71 O2 Sat by Pulse 100 98 Oximetry Intake and Output (last 12 hours): Intake & Output 11/27/15 11/28/15 11/28/15 18:59 06:59 18:59 Intake Total 350 Output Total 300 400 Balance 50 -400 Intake: Intake, IV Amount 350 Left Hand 350 Output: Urine 300 400 Urethral (Yoo) 200 400 - Medications Medications: Current Medications Albuterol/Ipratropium (Duoneb 3 Mg/0.5 Mg (3 Ml) Ud) 3 ml INH RQ6 [facility] Last Admin: 11/28/15 13:25 Dose: 3 ml Aspirin (Aspirin) 325 mg PO DAILY [facility] Last Admin: 11/23/15 09:42 Dose: 325 mg Clopidogrel Bisulfate (Plavix) 75 mg PO DAILY [facility] Last Admin: 11/24/15 11:02 Dose: 75 mg Enoxaparin Sodium (Lovenox) 40 mg SC DAILY [facility] Last Admin: 11/23/15 09:42 Dose: 40 mg Famotidine (Pepcid) 20 mg PO BID [facility] Last Admin: 11/28/15 09:08 Dose: 20 mg Piperacillin Sod/Tazobactam Sod (Zosyn 3.375 Gm Iv) 50 mls @ 100 mls/hr IVPB Q6H [facility] Last Admin: 11/28/15 14:06 Dose: 100 mls/hr Lactobacillus Acidophilus (Bacid Acidophilus) 1 cap PO BID [facility] Last Admin: 11/28/15 09:09 Dose: 1 cap Lisinopril (Zestril) 5 mg PO DAILY [facility] Last Admin: 11/28/15 09:08 Dose: 5 mg Phenytoin (Dilantin) 100 mg PEG TID [facility] Last Admin: 11/28/15 14:07 Dose: 100 mg Polyethylene Glycol (Miralax) 17 gm PEG BID [facility] Last Admin: 08/21/15 11:26 Dose: Not Given - Constitutional Appears: No Acute Distress, Chronically Ill - Head Exam Head Exam: ATRAUMATIC, NORMOCEPHALIC - Eye Exam Pupil Exam: PERRL - ENT Exam ENT Exam: Mucous Membranes Moist - Respiratory Exam Respiratory Exam: NORMAL BREATHING PATTERN (trach). absent: Respiratory Distress - Cardiovascular Exam Cardiovascular Exam: REGULAR RHYTHM, +S1, +S2 - GI/Abdominal Exam GI & Abdominal Exam: Soft. absent: Distended - Extremities Exam Extremities exam: pedal pulses present. absent: pedal edema - Neurological Exam Neurological exam: absent: Alert - Skin Skin Exam: Dry, Normal Color, Warm Assessment/Plan - Assessment and Plan (Free Text) Assessment: 65M S/P Bronchoscopy, Bronchoalveolar lavage, Tracheostomy exchange, POD#1 Plan: Removed packing from trach Will recheck site tomorrow D/W Dr. Rocio Rangel PGY1
[2015-11-29] MEDS: Albuterol-Ipratrop 3 mg / 0.5 (3 ml) UD INH SCH ×4 (01:07→19:28)
[2015-11-29] MEDS: Piperacill/Tazo 3.375gm in Dex 50 ML IVPB SCH ×4 (01:59→21:40)
--- NOTE | 2015-11-29 08:45 | CP.PCM.PN ---
"Subjective - Subjective Subjective: PGY1 Surgery Progress Note | Dr. Chan's Service Pt seen and examined at bedside. No acute events overnight. POD #2 tracheostomy. Patient nonverbal, unresponsive to stimuli. Objective - Vital Signs/Intake and Output Vital Signs (last 24 hours): Vital Signs - 24 hr 11/28/15 11/28/15 11/29/15 14:00 21:00 06:52 Temperature 99 F 98.2 F 97.9 F Pulse Rate 61 82 87 Respiratory 20 20 20 Rate Blood Pressure 96/61 L 105/62 128/62 O2 Sat by Pulse 94 L 98 100 Oximetry Intake and Output (last 12 hours): Intake & Output 11/28/15 11/29/15 11/29/15 18:59 06:59 18:59 Output Total 300 300 Balance -300 -300 Output: Urine 300 300 Urethral (Yoo) 300 300 - Medications Medications: Current Medications Albuterol/Ipratropium (Duoneb 3 Mg/0.5 Mg (3 Ml) Ud) 3 ml INH RQ6 [facility] Last Admin: 11/29/15 08:17 Dose: 3 ml Aspirin (Aspirin) 325 mg PO DAILY [facility] Last Admin: 11/23/15 09:42 Dose: 325 mg Clopidogrel Bisulfate (Plavix) 75 mg PO DAILY [facility] Last Admin: 11/24/15 11:02 Dose: 75 mg Enoxaparin Sodium (Lovenox) 40 mg SC DAILY [facility] Last Admin: 11/23/15 09:42 Dose: 40 mg Famotidine (Pepcid) 20 mg PO BID [facility] Last Admin: 11/28/15 17:57 Dose: 20 mg Piperacillin Sod/Tazobactam Sod (Zosyn 3.375 Gm Iv) 50 mls @ 100 mls/hr IVPB Q6H [facility] Last Admin: 11/29/15 01:59 Dose: 100 mls/hr Lactobacillus Acidophilus (Bacid Acidophilus) 1 cap PO BID [facility] Last Admin: 11/28/15 17:57 Dose: 1 cap Lisinopril (Zestril) 5 mg PO DAILY [facility] Last Admin: 11/28/15 09:08 Dose: 5 mg Phenytoin (Dilantin) 100 mg PEG TID [facility] Last Admin: 11/28/15 17:57 Dose: 100 mg Polyethylene Glycol (Miralax) 17 gm PEG BID [facility] Last Admin: 08/21/15 11:26 Dose: Not Given Assessment/Plan - Assessment and Plan (Free Text) Assessment: 65M S/P Bronchoscopy, Bronchoalveolar lavage, Tracheostomy exchange, POD#2 Plan: Trach collar in place Surgery signing off. Current Visit: Yes Status: Acute Comment: WBC 13.1, decreasing with no left shift Urine cx (11/22) shows pseudomonas aerg. Continue Zosyn IVPB Q6H Continue to monitor Previous findings: UA 11/16 positive. Urine Cx 11/16 positive for Klebsiella. s/p Rocephin IVPB for 5 days. (3) Respiratory failure Current Visit: Yes Status: Acute Comment: S/p bronchoscopy yesterday with tube change with Dr. Chan Decreased secretions, no blood tinged secretions noted Monitor (4) STEMI (ST elevation myocardial infarction) Current Visit: Yes Status: Acute Comment: cardiac stents on 06/13/15. Continue Lisinopril 5mg PO daily Continue Plavix 75mg PO daily Continue ASA 325mg PO daily (5) CAD (coronary artery disease) Current Visit: Yes Status: Acute Comment: s/p STEMI and stent placement Continue ASA 325mg PO daily Continue Lisinopril 5mg PO daily Continue Plavix 75mg PO daily (6) Seizures Current Visit: Yes Status: Acute Comment: Continue dilantin 100mg via PEG TID (7) Prophylactic measure Current Visit: Yes Status: Acute Comment: Lovenox 40 SC daily Pepcid 20 mg PO BID [facility]"
[2015-11-29] MEDS: Phenytoin 100 mg/4 ml Oral Susp UD PEG SCH ×3 (09:31→17:53)
[2015-11-29] MEDS: Lactobacillus Acidophilus 500 MU Cap PO SCH ×2 (09:31→17:52)
--- NOTE | 2015-11-29 13:39 | CP.PCM.PN ---
<Sandra Mercedes - Last Filed: 11/29/15 13:36> Subjective - Subjective Subjective: Medicine Note Pt seen and examined. Pt is POD #2 tracheostomy and no acute events overnight as per nursing. No megan blood near trach site and suction. Pt's mental status is unchanged. Unable to obtain ROS. Review of Systems - Review of Systems Systems not reviewed;Unavailable: Altered Mental Status Objective - Vital Signs/Intake and Output Vital Signs (last 24 hours): Vital Signs - 24 hr 11/28/15 11/28/15 11/29/15 14:00 21:00 06:52 Temperature 99 F 98.2 F 97.9 F Pulse Rate 61 82 87 Respiratory 20 20 20 Rate Blood Pressure 96/61 L 105/62 128/62 O2 Sat by Pulse 94 L 98 100 Oximetry Intake and Output (last 12 hours): Intake & Output 11/28/15 11/29/15 11/29/15 18:59 06:59 18:59 Output Total 300 300 Balance -300 -300 Output: Urine 300 300 Urethral (Yoo) 300 300 - Medications Medications: Current Medications Albuterol/Ipratropium (Duoneb 3 Mg/0.5 Mg (3 Ml) Ud) 3 ml INH RQ6 [facility] Last Admin: 11/29/15 13:03 Dose: 3 ml Aspirin (Aspirin) 325 mg PO DAILY [facility] Last Admin: 11/23/15 09:42 Dose: 325 mg Clopidogrel Bisulfate (Plavix) 75 mg PO DAILY [facility] Last Admin: 11/24/15 11:02 Dose: 75 mg Enoxaparin Sodium (Lovenox) 40 mg SC DAILY [facility] Last Admin: 11/23/15 09:42 Dose: 40 mg Famotidine (Pepcid) 20 mg PO BID [facility] Last Admin: 11/29/15 09:31 Dose: 20 mg Piperacillin Sod/Tazobactam Sod (Zosyn 3.375 Gm Iv) 50 mls @ 100 mls/hr IVPB Q6H [facility] Last Admin: 11/29/15 09:31 Dose: 100 mls/hr Lactobacillus Acidophilus (Bacid Acidophilus) 1 cap PO BID [facility] Last Admin: 11/29/15 09:31 Dose: 1 cap Lisinopril (Zestril) 5 mg PO DAILY [facility] Last Admin: 11/29/15 09:31 Dose: 5 mg Phenytoin (Dilantin) 100 mg PEG TID [facility] Last Admin: 11/29/15 09:31 Dose: 100 mg Polyethylene Glycol (Miralax) 17 gm PEG BID [facility] Last Admin: 08/21/15 11:26 Dose: Not Given - Constitutional Appears: Chronically Ill - Head Exam Head Exam: NORMAL INSPECTION, NORMOCEPHALIC - Eye Exam Eye Exam: Normal appearance Pupil Exam: PERRL - Respiratory Exam Respiratory Exam: Clear to PA & Lateral, NORMAL BREATHING PATTERN - Cardiovascular Exam Cardiovascular Exam: REGULAR RHYTHM, +S1, +S2 - GI/Abdominal Exam GI & Abdominal Exam: Normal Bowel Sounds, Soft - Extremities Exam Extremities exam: pedal pulses present - Neurological Exam Neurological exam: Altered - Skin Skin Exam: Normal Color Assessment/Plan (1) Respiratory failure Current Visit: Yes Status: Acute Comment: POD #2 tracheostomy with tube change with Dr. Chan No blood tinged secretions noted Monitor (2) Anoxic encephalopathy Assessment and plan: Current Visit: Yes Status: Chronic Comment: No acute change in mental status. patient with trach in place. Patient with PEG tube. Pending placement (3) Low hemoglobin Current Visit: Yes Status: Acute Comment: Recent Hgb 10.7, decreasing No evidence of megan red blood in trach today Monitor (4) Leukocytosis Current Visit: Yes Status: Acute Comment: WBC 13.1, decreasing with no left shift Urine cx (11/22) shows pseudomonas aerg. Continue Zosyn IVPB Q6H Continue to monitor Previous findings: UA 11/16 positive. Urine Cx 11/16 positive for Klebsiella. s/p Rocephin IVPB for 5 days. (5) STEMI (ST elevation myocardial infarction) Current Visit: Yes Status: Acute Comment: cardiac stents on 06/13/15. Continue Lisinopril 5mg PO daily Continue Plavix 75mg PO daily Continue ASA 325mg PO daily (6) Seizures Current Visit: Yes Status: Acute Comment: Continue dilantin 100mg via PEG TID (7) Bed sore Current Visit: Yes Status: Acute Comment: Continue wound care, [facility]are and medihoney. Continue repositioning of patient q2H. dolphin mattress. Heel air boots. 11/19: Continue wound care and current management. 11/16: Continue current management of wound care. 11/15: Continue wound care, [facility]icare and medihoney. 11/13: Continue to improve. Continue wound care, [facility] and medihoney. 11/09: Continue wound care. 11/06: Visualized today. Continue wound care. 11/02: Continue wound care. Will check 1x a week. 10/23: Improving, continue wound care. 10/22: -wound care following patient 10/19: -examined today -continue treatment with [facility] and Medih[facility] as per Wound Care 10/12--> cont LWC as per Plastic and Wound care team 10/10: Wound care recommendations: [facility] to buttocks around ulcer, MediHoney to necrotic tissue, Position Q2 hours, Recall when necrotic tissue is soft/loose for debridement 10/09: sacral ulcer, stage [address] Dr. Panchal consulted, f/u recommendations 08/09- stage one ulcer, healed, per nursing. continue repositioning of patient q2H dolphin mattress (8) Deep tissue injury Current Visit: Yes Status: Acute Comment: Continue wound care Qshift 11/22: Continue wound care, [facility] and medihoney. Continue repositioning of patient q2H. dolphin mattress. Heel air boots. (9) Prophylactic measure Current Visit: Yes Status: Acute Comment: Lovenox 40 SC daily Pepcid 20 mg PO BID [facility] <Rashel Rodrigues - Last Filed: 11/29/15 17:18> Objective - Vital Signs/Intake and Output Vital Signs (last 24 hours): Vital Signs - 24 hr 11/28/15 11/29/15 11/29/15 21:00 06:52 13:45 Temperature 98.2 F 97.9 F Pulse Rate 82 87 87 Respiratory 20 20 Rate Blood Pressure 105/62 128/62 O2 Sat by Pulse 98 100 Oximetry 11/29/15 14:00 Temperature 98.6 F Pulse Rate 86 Respiratory 21 Rate Blood Pressure 107/52 L O2 Sat by Pulse 98 Oximetry Intake and Output (last 12 hours): Intake & Output 11/28/15 11/29/15 11/29/15 18:59 06:59 18:59 Output Total 300 300 600 Balance -300 -300 -600 Output: Urine 300 300 600 Urethral (Yoo) 300 300 600 - Medications Medications: Current Medications Albuterol/Ipratropium (Duoneb 3 Mg/0.5 Mg (3 Ml) Ud) 3 ml INH RQ6 [facility] Last Admin: 11/29/15 13:03 Dose: 3 ml Aspirin (Aspirin) 325 mg PO DAILY [facility] Last Admin: 11/23/15 09:42 Dose: 325 mg Clopidogrel Bisulfate (Plavix) 75 mg PO DAILY [facility] Last Admin: 11/24/15 11:02 Dose: 75 mg Enoxaparin Sodium (Lovenox) 40 mg SC DAILY [facility] Last Admin: 11/23/15 09:42 Dose: 40 mg Famotidine (Pepcid) 20 mg PO BID [facility] Last Admin: 11/29/15 09:31 Dose: 20 mg Piperacillin Sod/Tazobactam Sod (Zosyn 3.375 Gm Iv) 50 mls @ 100 mls/hr IVPB Q6H [facility] Last Admin: 11/29/15 14:37 Dose: 100 mls/hr Lactobacillus Acidophilus (Bacid Acidophilus) 1 cap PO BID [facility] Last Admin: 11/29/15 09:31 Dose: 1 cap Lisinopril (Zestril) 5 mg PO DAILY [facility] Last Admin: 11/29/15 09:31 Dose: 5 mg Phenytoin (Dilantin) 100 mg PEG TID [facility] Last Admin: 11/29/15 14:37 Dose: 100 mg Polyethylene Glycol (Miralax) 17 gm PEG BID [facility] Last Admin: 08/21/15 11:26 Dose: Not Given Assessment/Plan (1) Anoxic encephalopathy Current Visit: Yes Status: Chronic Comment: No acute change in mental status. patient with trach in place. Patient with PEG tube. Pending placement (2) STEMI (ST elevation myocardial infarction) Current Visit: Yes Status: Acute Comment: cardiac stents on 06/13/15. Continue Lisinopril 5mg PO daily Continue Plavix 75mg PO daily Continue ASA 325mg PO daily (3) Respiratory failure Current Visit: Yes Status: Acute Comment: POD #2 tracheostomy with tube change with Dr. Chan No blood tinged secretions noted Monitor (4) Seizures Current Visit: Yes Status: Acute Comment: Continue dilantin 100mg via PEG TID (5) Prophylactic measure Current Visit: Yes Status: Acute Comment: Lovenox 40 SC daily Pepcid 20 mg PO BID [facility] (6) Bed sore Current Visit: Yes Status: Acute Comment: Continue wound care, [facility] and [facility]. Continue repositioning of patient q2H. dolphin mattress. Heel air boots. 11/19: Continue wound care and current management. 11/16: Continue current management of wound care. 11/15: Continue wound care, [facility]icare and medihoney. 11/13: Continue to improve. Continue wound care, [facility]icare and medihoney. 11/09: Continue wound care. 11/06: Visualized today. Continue wound care. 11/02: Continue wound care. Will check 1x a week. 10/23: Improving, continue wound care. 10/22: -wound care following patient 10/19: -examined today -continue treatment with [facility] and Medih[facility] as per Wound Care 10/12--> cont LWC as per Plastic and Wound care team 10/10: Wound care recommendations: [facility] to buttocks around ulcer, MediHoney to necrotic tissue, Position Q2 hours, Recall when necrotic tissue is soft/loose for debridement 10/09: sacral ulcer, stage [address] Dr. Panchal consulted, f/u recommendations 08/09- stage one ulcer, healed, per nursing. continue repositioning of patient q2H dolphin mattress Attending/Attestation - Attestation I have personally seen and examined this patient.: Yes I have fully participated in the care of the patient.: Yes I have reviewed all pertinent clinical information: Yes Notes (Text): 11/29/15 17:17 Patient was seen and examined during round with resident. no more blood coming from trach suctioning pt has no fdever cont IV ABX for total 1 week cont supportive mx.
[2015-11-30] MEDS: Albuterol-Ipratrop 3 mg / 0.5 (3 ml) UD INH SCH ×4 (01:04→20:09)
[2015-11-30] MEDS: Piperacill/Tazo 3.375gm in Dex 50 ML IVPB SCH ×2 (03:15→09:00)
[2015-11-30 07:32] LABS: BASO % 0.2 % (0.0-2.0); EOS # 1.9 K/uL (0.0-0.7); EOS % 15.1 % (0.0-4.0); HEMOGLOBIN 10.5 g/dL (12.0-18.0); LYMPH # 1.1 K/uL (1.0-4.3); MEAN CELL VOLUME 92.9 fL (80.0-94.0); MEAN CORPUSCULAR HGB CONC 33.4 g/dL (33.0-37.0); MONO % 8.1 % (0.0-10.0); NEUT # 8.4 K/uL (1.8-7.0); NEUT % 67.6 % (50.0-75.0); NRBC % 0.1 % (0.0-2.0); PLATELET COUNT 361 K/uL (130-400); RBC 3.39 Mil/uL (4.40-5.90); RED CELL DISTRIBUTION WIDTH 14.1 % (11.5-14.5); WHITE BLOOD COUNT 12.4 K/uL (4.8-10.8)
[2015-11-30 07:57] LABS: ALBUMIN 3.1 g/dL (3.5-5.0)
[2015-11-30 08:00] LABS: ALB/GLOB RATIO 0.8 (1.0-2.1); AST/SGOT 28 U/L (17-59); GFR NON-AFRICAN AMERICAN > 60
[2015-11-30 08:01] LABS: ALT/SGPT 48 U/L (21-72); BLOOD UREA NITROGEN 13 mg/dL (9-20); CALCIUM 8.4 mg/dL (8.4-10.2)
[2015-11-30 08:55] LABS: BANDS 2 % (0-0); EOSINOPHIL 15 % (0-4); LYMPHOCYTE 9 % (20-40); MONOCYTE 5 % (0-10); NEUTROPHIL 69 % (50-75); PLATELET ESTIMATE NORMAL (NORMAL); TOTAL CELLS COUNTED 100
[2015-11-30] MEDS: Phenytoin 100 mg/4 ml Oral Susp UD PEG SCH ×3 (10:07→17:32)
[2015-11-30] MEDS: Lactobacillus Acidophilus 500 MU Cap PO SCH ×2 (10:07→17:32)
--- NOTE | 2015-11-30 11:47 | CP.PCM.PN ---
<Scout Marinelli - Last Filed: 11/30/15 12:53> Subjective - Subjective Subjective: Pt seen and examined at bedside. S/P tracheostomy POD#3. No acute events overnight. Pt mental status unchanged, ROS unattainable. Pt urine and bronchial washing positive for Pseudomonas, most sensitive to Cipro. Zosyn DCed and started Cipro 400mg BID. Dr. Armstrong aware. Per brother in law, family will check out the rehab in [place] today. Review of Systems - Review of Systems Systems not reviewed;Unavailable: Acuity of Condition Objective - Vital Signs/Intake and Output Vital Signs (last 24 hours): Vital Signs - 24 hr 11/29/15 11/29/15 11/29/15 13:45 14:00 21:00 Temperature 98.6 F 99.6 F Pulse Rate 87 86 97 H Respiratory 21 18 Rate Blood Pressure 107/52 L 101/61 O2 Sat by Pulse 98 100 Oximetry 11/30/15 06:00 Temperature 97.8 F Pulse Rate 89 Respiratory 20 Rate Blood Pressure 120/84 O2 Sat by Pulse 100 Oximetry Intake and Output (last 12 hours): Intake & Output 11/29/15 11/30/15 11/30/15 18:59 06:59 18:59 Output Total 600 700 Balance -600 -700 Output: Urine 600 700 Urethral (Yoo) 600 700 - Medications Medications: Current Medications Albuterol/Ipratropium (Duoneb 3 Mg/0.5 Mg (3 Ml) Ud) 3 ml INH RQ6 [facility] Last Admin: 11/30/15 07:38 Dose: 3 ml Aspirin (Aspirin) 325 mg PO DAILY [facility] Last Admin: 11/23/15 09:42 Dose: 325 mg Clopidogrel Bisulfate (Plavix) 75 mg PO DAILY [facility] Last Admin: 11/24/15 11:02 Dose: 75 mg Enoxaparin Sodium (Lovenox) 40 mg SC DAILY [facility] Last Admin: 11/23/15 09:42 Dose: 40 mg Famotidine (Pepcid) 20 mg PO BID [facility] Last Admin: 11/30/15 10:07 Dose: 20 mg Lactobacillus Acidophilus (Bacid Acidophilus) 1 cap PO BID [facility] Last Admin: 11/30/15 10:07 Dose: 1 cap Lisinopril (Zestril) 5 mg PO DAILY [facility] Last Admin: 11/30/15 10:07 Dose: 5 mg Phenytoin (Dilantin) 100 mg PEG TID [facility] Last Admin: 11/30/15 10:07 Dose: 100 mg Polyethylene Glycol (Miralax) 17 gm PEG BID [facility] Last Admin: 08/21/15 11:26 Dose: Not Given - Labs Labs (last 24 hours): Laboratory Results - last 24 hr 11/30/15 07:16 WBC 12.4 H RBC 3.39 L Hgb 10.5 L Hct 31.5 L MCV 92.9 MCH 31.0 MCHC 33.4 RDW 14.1 Plt Count 361 MPV 8.0 Neut % (Auto) 67.6 Lymph % (Auto) 9.0 L [place] % (Auto) 8.1 Eos % (Auto) 15.1 H Baso % (Auto) 0.2 Neut # 8.4 H Lymph # 1.1 [place] # 1.0 H Eos # 1.9 H Baso # 0.0 Neutrophils % (Manual) 69 Band Neutrophils % 2 H Lymphocytes % (Manual) 9 L Monocytes % (Manual) 5 Eosinophils % (Manual) 15 H Platelet Estimate Normal RBC Morphology Normal Sodium 140 Potassium 3.8 Chloride 104 Carbon Dioxide 28 Anion Gap 12 BUN 13 Creatinine 0.5 L Est GFR ( Amer) > 60 Est GFR (Non-Af Amer) > 60 Random Glucose 133 H Calcium 8.4 Total Bilirubin 0.3 AST 28 ALT 48 Alkaline Phosphatase 82 Total Protein 6.8 Albumin 3.1 L Globulin 3.7 Albumin/Globulin Ratio 0.8 L - Constitutional Appears: Non-toxic, No Acute Distress - Head Exam Head Exam: NORMAL INSPECTION, NORMOCEPHALIC - Eye Exam Eye Exam: Normal appearance Pupil Exam: NORMAL ACCOMODATION - Respiratory Exam Respiratory Exam: Rhonchi, NORMAL BREATHING PATTERN - Cardiovascular Exam Cardiovascular Exam: REGULAR RHYTHM, +S1, +S2 - GI/Abdominal Exam GI & Abdominal Exam: Normal Bowel Sounds, Soft - Extremities Exam Extremities exam: normal inspection - Neurological Exam Neurological exam: Altered - Skin Skin Exam: Dry, Intact Additional comments: bilateral thigh rash improving. Assessment/Plan (1) Respiratory failure Current Visit: Yes Status: Acute Comment: POD #3 tracheostomy with tube change with Dr. Chan No blood tinged secretions noted Bronchial washing grew Pseudomonas, started Cipro 400mg IV BID. Monitor (2) UTI (lower urinary tract infection) Current Visit: Yes Status: Resolved Comment: 11/30: Urine positive for Pseudomonas, sensitive to Cipro. Will start Cipro 400mg IV BID. 11/22: Continue current management. 11/21: Continue current management. 11/20: Continue current management. 11/19: urine grew Klebsiella pneumoniae, sensative to Rocephin. Afebrile, WBC WNL. Continue current management. 11/18: urine positive for gram negative rods, currently on Rocephin. Afebrile and WBC WNL. F/U final result. 09/23: Flagyl discontinued 09/17: urine Cx negative 09/11: Urine Cx pseudomonas - started zosyn 3.375 gm IVPB Q8H (day #12) Afebrile overnight. WBC on :13.4 ID on case- Dr. Armstrong - help very much appreciated (3) Bed sore Current Visit: Yes Status: Acute Comment: Continue wound care, [facility] and medihoney. Continue repositioning of patient q2H. dolphin mattress. Heel air boots. 11/19: Continue wound care and current management. 11/16: Continue current management of wound care. 11/15: Continue wound care, sensicare and medihoney. 11/13: Continue to improve. Continue wound care, sensicare and medihoney. 11/09: Continue wound care. 11/06: Visualized today. Continue wound care. 11/02: Continue wound care. Will check 1x a week. 10/23: Improving, continue wound care. 10/22: -wound care following patient 10/19: -examined today -continue treatment with S[facility] and Medihoney as per Wound Care 10/12--> cont LWC as per Plastic and Wound care team 10/10: Wound care recommendations: S[facility]iCare to buttocks around ulcer, MediHoney to necrotic tissue, Position Q2 hours, Recall when necrotic tissue is soft/loose for debridement 10/09: sacral ulcer, stage 3 Dr. Panchal consulted, f/u recommendations 08/09- stage one ulcer, healed, per nursing. continue repositioning of patient q2H dolphin mattress (4) Blood in stool Current Visit: Yes Status: Acute Comment: Resolved for now. C.diff negative ASA and Plavix resumed . (5) Anoxic encephalopathy Current Visit: Yes Status: Chronic Comment: No acute change in mental status. patient with trach in place. Patient with PEG tube. Pending placement (6) Leukocytosis Current Visit: Yes Status: Acute Comment: WBC 12.4, decreasing with no left shift Urine cx (11/22) shows pseudomonas aerg. Started Cipro IV BID. Continue to monitor Previous findings: UA 11/16 positive. Urine Cx 11/16 positive for Klebsiella. s/p Rocephin IVPB for 5 days. (7) Seizures Current Visit: Yes Status: Acute Comment: Continue dilantin 100mg via PEG TID (8) Prophylactic measure Current Visit: Yes Status: Acute Comment: Lovenox 40 SC daily Pepcid 20 mg PO BID [facility] <Rashel Rodrigues - Last Filed: 11/30/15 18:02> Objective - Vital Signs/Intake and Output Vital Signs (last 24 hours): Vital Signs - 24 hr 11/29/15 11/30/15 11/30/15 21:00 06:00 14:17 Temperature 99.6 F 97.8 F 98.6 F Pulse Rate 97 H 89 94 H Respiratory 18 20 18 Rate Blood Pressure 101/61 120/84 126/73 O2 Sat by Pulse 100 100 99 Oximetry Intake and Output (last 12 hours): Intake & Output 11/29/15 11/30/15 11/30/15 18:59 06:59 18:59 Output Total 600 700 400 Balance -600 -700 -400 Output: Urine 600 700 400 Urethral (Yoo) 600 700 400 - Medications Medications: Current Medications Albuterol/Ipratropium (Duoneb 3 Mg/0.5 Mg (3 Ml) Ud) 3 ml INH RQ6 [facility] Last Admin: 11/30/15 13:45 Dose: 3 ml Aspirin (Aspirin) 325 mg PO DAILY [facility] Last Admin: 11/23/15 09:42 Dose: 325 mg Clopidogrel Bisulfate (Plavix) 75 mg PO DAILY [facility] Last Admin: 11/24/15 11:02 Dose: 75 mg Enoxaparin Sodium (Lovenox) 40 mg SC DAILY [facility] Last Admin: 11/23/15 09:42 Dose: 40 mg Famotidine (Pepcid) 20 mg PO BID [facility] Last Admin: 11/30/15 17:33 Dose: 20 mg Ciprofloxacin (Cipro 400mg/200ml Dsw) 200 mls @ 133 mls/hr IVPB Q12H [facility] Last Admin: 11/30/15 13:00 Dose: 133 mls/hr Lactobacillus Acidophilus (Bacid Acidophilus) 1 cap PO BID [facility] Last Admin: 11/30/15 17:32 Dose: 1 cap Lisinopril (Zestril) 5 mg PO DAILY [facility] Last Admin: 11/30/15 10:07 Dose: 5 mg Phenytoin (Dilantin) 100 mg PEG TID [facility] Last Admin: 11/30/15 17:32 Dose: 100 mg Polyethylene Glycol (Miralax) 17 gm PEG BID [facility] Last Admin: 08/21/15 11:26 Dose: Not Given - Labs Labs (last 24 hours): Laboratory Results - last 24 hr 11/30/15 07:16 WBC 12.4 H RBC 3.39 L Hgb 10.5 L Hct 31.5 L MCV 92.9 MCH 31.0 MCHC 33.4 RDW 14.1 Plt Count 361 MPV 8.0 Neut % (Auto) 67.6 Lymph % (Auto) 9.0 L [place] % (Auto) 8.1 Eos % (Auto) 15.1 H Baso % (Auto) 0.2 Neut # 8.4 H Lymph # 1.1 [place] # 1.0 H Eos # 1.9 H Baso # 0.0 Neutrophils % (Manual) 69 Band Neutrophils % 2 H Lymphocytes % (Manual) 9 L Monocytes % (Manual) 5 Eosinophils % (Manual) 15 H Platelet Estimate Normal RBC Morphology Normal Sodium 140 Potassium 3.8 Chloride 104 Carbon Dioxide 28 Anion Gap 12 BUN 13 Creatinine 0.5 L Est GFR ( Amer) > 60 Est GFR (Non-Af Amer) > 60 Random Glucose 133 H Calcium 8.4 Total Bilirubin 0.3 AST 28 ALT 48 Alkaline Phosphatase 82 Total Protein 6.8 Albumin 3.1 L Globulin 3.7 Albumin/Globulin Ratio 0.8 L Assessment/Plan (1) Anoxic encephalopathy Current Visit: Yes Status: Chronic Comment: No acute change in mental status. patient with trach in place. Patient with PEG tube. Pending placement (2) STEMI (ST elevation myocardial infarction) Current Visit: Yes Status: Acute Comment: cardiac stents on 06/13/15. Continue Lisinopril 5mg PO daily Continue Plavix 75mg PO daily Continue ASA 325mg PO daily (3) Respiratory failure Current Visit: Yes Status: Acute Comment: POD #3 tracheostomy with tube change with Dr. Chan No blood tinged secretions noted Bronchial washing grew Pseudomonas, started Cipro 400mg IV BID. Monitor (4) Seizures Current Visit: Yes Status: Acute Comment: Continue dilantin 100mg via PEG TID (5) Prophylactic measure Current Visit: Yes Status: Acute Comment: Lovenox 40 SC daily Pepcid 20 mg PO BID [facility] (6) Bed sore Current Visit: Yes Status: Acute Comment: Continue wound care, [facility]are and medihoney. Continue repositioning of patient q2H. dolphin mattress. Heel air boots. 11/19: Continue wound care and current management. 11/16: Continue current management of wound care. 11/15: Continue wound care, sensicare and medihoney. 11/13: Continue to improve. Continue wound care, sensicare and medihoney. 11/09: Continue wound care. 11/06: Visualized today. Continue wound care. 11/02: Continue wound care. Will check 1x a week. 10/23: Improving, continue wound care. 10/22: -wound care following patient 10/19: -examined today -continue treatment with S[facility] and Medihoney as per Wound Care 10/12--> cont LWC as per Plastic and Wound care team 10/10: Wound care recommendations: S[facility] to buttocks around ulcer, MediHoney to necrotic tissue, Position Q2 hours, Recall when necrotic tissue is soft/loose for debridement 10/09: sacral ulcer, stage [address] Dr. Panchal consulted, f/u recommendations 08/09- stage one ulcer, healed, per nursing. continue repositioning of patient q2H dolphin mattress Attending/Attestation - Attestation I have personally seen and examined this patient.: Yes I have fully participated in the care of the patient.: Yes I have reviewed all pertinent clinical information: Yes Notes (Text): 11/30/15 18:01 Patient was seen and examined during the round with resident. She condition remained the same. Patient has a sputum culture during proctoscopy came back positive for Pseudomonas and ID will be contacted which is more sensitive to ciprofloxacin. We will change from Zosyn to Cipro. Continue supportive management.
[2015-11-30] MEDS: Ciprofloxacin 400mg/200ml D5W 200 ML IVPB SCH ×2 (13:00→23:21)
[2015-12-01] MEDS: Albuterol-Ipratrop 3 mg / 0.5 (3 ml) UD INH SCH ×3 (01:24→13:24)
--- NOTE | 2015-12-01 05:57 | CP.PCM.PN ---
<Judith Baires H - Last Filed: 12/01/15 05:54> Subjective - Subjective Subjective: PGY1 Medicine Note: Patient seen and examined at bedside this AM. S/P tracheostomy POD#4. No acute events overnight. Patient mental status unchanged, ROS unattainable. Review of Systems - Review of Systems Systems not reviewed;Unavailable: Altered Mental Status Objective - Vital Signs/Intake and Output Vital Signs (last 24 hours): Vital Signs - 24 hr 11/30/15 11/30/15 11/30/15 06:00 14:17 22:00 Temperature 97.8 F 98.6 F 99 F Pulse Rate 89 94 H 99 H Respiratory 20 18 19 Rate Blood Pressure 120/84 126/73 100/62 O2 Sat by Pulse 100 99 98 Oximetry 12/01/15 05:37 Temperature 98.2 F Pulse Rate 99 H Respiratory 18 Rate Blood Pressure 155/79 H O2 Sat by Pulse 95 Oximetry Intake and Output (last 12 hours): Intake & Output 11/30/15 11/30/15 12/01/15 06:59 18:59 06:59 Intake Total 900 Output Total 700 400 700 Balance -700 -400 200 Intake: Intake, IV Amount 200 Left Forearm 200 Tube Feeding 700 Output: Urine 700 400 700 Urethral (Yoo) 700 400 700 Other: # Bowel Movements 1 - Medications Medications: Current Medications Albuterol/Ipratropium (Duoneb 3 Mg/0.5 Mg (3 Ml) Ud) 3 ml INH RQ6 [facility] Last Admin: 12/01/15 01:24 Dose: 3 ml Aspirin (Aspirin) 325 mg PO DAILY [facility] Last Admin: 11/23/15 09:42 Dose: 325 mg Clopidogrel Bisulfate (Plavix) 75 mg PO DAILY [facility] Last Admin: 11/24/15 11:02 Dose: 75 mg Enoxaparin Sodium (Lovenox) 40 mg SC DAILY [facility] Last Admin: 11/23/15 09:42 Dose: 40 mg Famotidine (Pepcid) 20 mg PO BID [facility] Last Admin: 11/30/15 17:33 Dose: 20 mg Ciprofloxacin (Cipro 400mg/200ml Dsw) 200 mls @ 133 mls/hr IVPB Q12H [facility] Last Admin: 11/30/15 23:21 Dose: 133 mls/hr Lactobacillus Acidophilus (Bacid Acidophilus) 1 cap PO BID [facility] Last Admin: 11/30/15 17:32 Dose: 1 cap Lisinopril (Zestril) 5 mg PO DAILY [facility] Last Admin: 11/30/15 10:07 Dose: 5 mg Phenytoin (Dilantin) 100 mg PEG TID [facility] Last Admin: 11/30/15 17:32 Dose: 100 mg Polyethylene Glycol (Miralax) 17 gm PEG BID [facility] Last Admin: 08/21/15 11:26 Dose: Not Given - Labs Labs (last 24 hours): Laboratory Results - last 24 hr 11/30/15 07:16 WBC 12.4 H RBC 3.39 L Hgb 10.5 L Hct 31.5 L MCV 92.9 MCH 31.0 MCHC 33.4 RDW 14.1 Plt Count 361 MPV 8.0 Neut % (Auto) 67.6 Lymph % (Auto) 9.0 L Jerome % (Auto) 8.1 Eos % (Auto) 15.1 H Baso % (Auto) 0.2 Neut # 8.4 H Lymph # 1.1 Jerome # 1.0 H Eos # 1.9 H Baso # 0.0 Neutrophils % (Manual) 69 Band Neutrophils % 2 H Lymphocytes % (Manual) 9 L Monocytes % (Manual) 5 Eosinophils % (Manual) 15 H Platelet Estimate Normal RBC Morphology Normal Sodium 140 Potassium 3.8 Chloride 104 Carbon Dioxide 28 Anion Gap 12 BUN 13 Creatinine 0.5 L Est GFR ( Amer) > 60 Est GFR (Non-Af Amer) > 60 Random Glucose 133 H Calcium 8.4 Total Bilirubin 0.3 AST 28 ALT 48 Alkaline Phosphatase 82 Total Protein 6.8 Albumin 3.1 L Globulin 3.7 Albumin/Globulin Ratio 0.8 L - Constitutional Appears: Non-toxic, No Acute Distress, Chronically Ill - Head Exam Head Exam: NORMAL INSPECTION, NORMOCEPHALIC - Eye Exam Eye Exam: Normal appearance Pupil Exam: NORMAL ACCOMODATION - ENT Exam ENT Exam: Mucous Membranes Moist - Respiratory Exam Respiratory Exam: Rhonchi, NORMAL BREATHING PATTERN - Cardiovascular Exam Cardiovascular Exam: REGULAR RHYTHM, +S1, +S2 - GI/Abdominal Exam GI & Abdominal Exam: Normal Bowel Sounds, Soft. absent: Distended, Firm - Extremities Exam Extremities exam: normal capillary refill. absent: pedal edema - Neurological Exam Neurological exam: Altered - Skin Skin Exam: Dry Additional comments: bilateral thigh rash improving Assessment/Plan (1) Respiratory failure Current Visit: Yes Status: Acute Comment: POD #4 tracheostomy with tube change with Dr. Chan No blood tinged secretions noted Bronchial washing grew Pseudomonas, started Cipro 400mg IV BID on 11/30/15 Monitor (2) Anoxic encephalopathy Current Visit: Yes Status: Chronic Comment: No acute change in mental status. patient with trach in place. Patient with PEG tube. Pending placement (3) CAD (coronary artery disease) Current Visit: Yes Status: Acute Comment: s/p STEMI and stent placement Continue ASA 325mg PO daily Continue Lisinopril 5mg PO daily Continue Plavix 75mg PO daily (4) Bed sore Current Visit: Yes Status: Acute Comment: Continue wound care, [facility] and [facility]. Continue repositioning of patient q2H. dolphin mattress. Heel air boots. 11/19: Continue wound care and current management. 11/16: Continue current management of wound care. 11/15: Continue wound care, [facility] and [facility]. 11/13: Continue to improve. Continue wound care, [facility] and [facility]. 11/09: Continue wound care. 11/06: Visualized today. Continue wound care. 11/02: Continue wound care. Will check 1x a week. 10/23: Improving, continue wound care. 10/22: -wound care following patient 10/19: -examined today -continue treatment with [facility] and [facility] as per Wound Care 10/12--> cont LWC as per Plastic and Wound care team 10/10: Wound care recommendations: [facility] to buttocks around ulcer, [facility] to necrotic tissue, Position Q2 hours, Recall when necrotic tissue is soft/loose for debridement 10/09: sacral ulcer, stage [address]. Panchal consulted, f/u recommendations 08/09- stage one ulcer, healed, per nursing. continue repositioning of patient q2H dolphin mattress (5) Blood in stool Current Visit: Yes Status: Acute Comment: Resolved for now. C.diff negative ASA and Plavix resumed . (6) Leukocytosis Current Visit: Yes Status: Acute Comment: WBC 12.4, decreasing with no left shift Urine cx (11/22) shows pseudomonas aerg. Started Cipro IV BID on 11/30/15 Continue to monitor Previous findings: UA 11/16 positive. Urine Cx 11/16 positive for Klebsiella. s/p Rocephin IVPB for 5 days. (7) Seizures Current Visit: Yes Status: Acute Comment: Continue dilantin 100mg via PEG TID (8) Prophylactic measure Current Visit: Yes Status: Acute Comment: Lovenox 40 SC daily Pepcid 20 mg PO BID [facility] <Rashel Rodrigues - Last Filed: 12/01/15 14:39> Objective - Vital Signs/Intake and Output Vital Signs (last 24 hours): Vital Signs - 24 hr 11/30/15 12/01/15 22:00 05:37 Temperature 99 F 98.2 F Pulse Rate 99 H 99 H Respiratory 19 18 Rate Blood Pressure 100/62 155/79 H O2 Sat by Pulse 98 95 Oximetry Intake and Output (last 12 hours): Intake & Output 11/30/15 12/01/15 12/01/15 18:59 06:59 18:59 Intake Total 900 Output Total 400 700 Balance -400 200 Intake: Intake, IV Amount 200 Left Forearm 200 Tube Feeding 700 Output: Urine 400 700 Urethral (Yoo) 400 700 Other: # Bowel Movements 1 - Medications Medications: Current Medications Albuterol/Ipratropium (Duoneb 3 Mg/0.5 Mg (3 Ml) Ud) 3 ml INH RQ6 [facility] Last Admin: 12/01/15 13:24 Dose: 3 ml Aspirin (Aspirin) 325 mg PO DAILY [facility] Last Admin: 11/23/15 09:42 Dose: 325 mg Clopidogrel Bisulfate (Plavix) 75 mg PO DAILY [facility] Last Admin: 11/24/15 11:02 Dose: 75 mg Enoxaparin Sodium (Lovenox) 40 mg SC DAILY [facility] Last Admin: 11/23/15 09:42 Dose: 40 mg Famotidine (Pepcid) 20 mg PO BID [facility] Last Admin: 12/01/15 09:52 Dose: 20 mg Ciprofloxacin (Cipro 400mg/200ml Dsw) 200 mls @ 133 mls/hr IVPB Q12H [facility] Last Admin: 12/01/15 11:00 Dose: 133 mls/hr Lactobacillus Acidophilus (Bacid Acidophilus) 1 cap PO BID [facility] Last Admin: 12/01/15 09:52 Dose: 1 cap Lisinopril (Zestril) 5 mg PO DAILY [facility] Last Admin: 12/01/15 09:52 Dose: 5 mg Phenytoin (Dilantin) 100 mg PEG TID [facility] Last Admin: 12/01/15 09:52 Dose: 100 mg Polyethylene Glycol (Miralax) 17 gm PEG BID [facility] Last Admin: 08/21/15 11:26 Dose: Not Given - Labs Labs (last 24 hours): Laboratory Results - last 24 hr 12/01/15 07:46 POC Glucose (mg/dL) 116 H Assessment/Plan (1) Anoxic encephalopathy Current Visit: Yes Status: Chronic Comment: No acute change in mental status. patient with trach in place. Patient with PEG tube. Pending placement (2) STEMI (ST elevation myocardial infarction) Current Visit: Yes Status: Acute Comment: cardiac stents on 06/13/15. Continue Lisinopril 5mg PO daily Continue Plavix 75mg PO daily Continue ASA 325mg PO daily (3) Respiratory failure Current Visit: Yes Status: Acute Comment: POD #4 tracheostomy with tube change with Dr. Chan No blood tinged secretions noted Bronchial washing grew Pseudomonas, started Cipro 400mg IV BID on 11/30/15 Monitor (4) Seizures Current Visit: Yes Status: Acute Comment: Continue dilantin 100mg via PEG TID (5) Prophylactic measure Current Visit: Yes Status: Acute Comment: Lovenox 40 SC daily Pepcid 20 mg PO BID [facility] (6) Bed sore Current Visit: Yes Status: Acute Comment: Continue wound care, [facility] and [facility]. Continue repositioning of patient q2H. dolphin mattress. Heel air boots. 11/19: Continue wound care and current management. 11/16: Continue current management of wound care. 11/15: Continue wound care, [facility] and [facility]. 11/13: Continue to improve. Continue wound care, [facility] and [facility]. 11/09: Continue wound care. 11/06: Visualized today. Continue wound care. 11/02: Continue wound care. Will check 1x a week. 10/23: Improving, continue wound care. 10/22: -wound care following patient 10/19: -examined today -continue treatment with [facility] and [facility] as per Wound Care 10/12--> cont LWC as per Plastic and Wound care team 10/10: Wound care recommendations: [facility] to buttocks around ulcer, [facility] to necrotic tissue, Position Q2 hours, Recall when necrotic tissue is soft/loose for debridement 10/09: sacral ulcer, stage [address] Dr[address] Panchal consulted, f/u recommendations 08/09- stage one ulcer, healed, per nursing. continue repositioning of patient q2H [facility] Attending/Attestation - Attestation I have personally seen and examined this patient.: Yes I have fully participated in the care of the patient.: Yes I have reviewed all pertinent clinical information: Yes Notes (Text): 12/01/15 14:39 Patient was seen and examined during the round with resident. No new events no new changes. Patient is stable unresponsive and nonverbal. Continue supportive management.
[2015-12-01] MEDS: Phenytoin 100 mg/4 ml Oral Susp UD PEG SCH ×3 (09:52→17:04)
[2015-12-01] MEDS: Lactobacillus Acidophilus 500 MU Cap PO SCH ×2 (09:52→17:04)
[2015-12-01] MEDS: Ciprofloxacin 400mg/200ml D5W 200 ML IVPB SCH ×2 (11:00→23:48)
--- NOTE | 2015-12-02 00:09 | CP.PCM.PN ---
<Judith Baires H - Last Filed: 12/02/15 00:06> Subjective - Subjective Subjective: PGY1 Medicine Note: Patient seen and examined at bedside this AM. S/P tracheostomy POD#5. No acute events overnight. Patient mental status unchanged, ROS unattainable. GCS 8 [id number] Review of Systems - Review of Systems Systems not reviewed;Unavailable: Altered Mental Status Objective - Vital Signs/Intake and Output Vital Signs (last 24 hours): Vital Signs - 24 hr 12/01/15 12/01/15 12/01/15 05:37 13:10 20:00 Temperature 98.2 F 98.3 F Pulse Rate 99 H 99 H 99 H Respiratory 18 18 Rate Blood Pressure 155/79 H 134/77 O2 Sat by Pulse 95 99 Oximetry 12/01/15 21:37 Temperature 98.3 F Pulse Rate 105 H Respiratory 19 Rate Blood Pressure 95/60 L O2 Sat by Pulse 98 Oximetry Intake and Output (last 12 hours): Intake & Output 12/01/15 12/01/15 12/02/15 06:59 18:59 06:59 Intake Total 900 Output Total 700 800 300 Balance 200 -800 -300 Intake: Intake, IV Amount 200 Left Forearm 200 Tube Feeding 700 Output: Urine 700 800 300 Urethral (Yoo) 700 800 300 Other: # Bowel Movements 1 - Medications Medications: Current Medications Aspirin (Aspirin) 325 mg PO DAILY [facility] Last Admin: 11/23/15 09:42 Dose: 325 mg Clopidogrel Bisulfate (Plavix) 75 mg PO DAILY [facility] Last Admin: 11/24/15 11:02 Dose: 75 mg Enoxaparin Sodium (Lovenox) 40 mg SC DAILY [facility] Last Admin: 11/23/15 09:42 Dose: 40 mg Famotidine (Pepcid) 20 mg PO BID [facility] Last Admin: 12/01/15 17:04 Dose: 20 mg Ciprofloxacin (Cipro 400mg/200ml Dsw) 200 mls @ 133 mls/hr IVPB Q12H [facility] Last Admin: 12/01/15 23:48 Dose: 133 mls/hr Lactobacillus Acidophilus (Bacid Acidophilus) 1 cap PO BID [facility] Last Admin: 12/01/15 17:04 Dose: 1 cap Lisinopril (Zestril) 5 mg PO DAILY [facility] Last Admin: 12/01/15 09:52 Dose: 5 mg Phenytoin (Dilantin) 100 mg PEG TID [facility] Last Admin: 12/01/15 17:04 Dose: 100 mg Polyethylene Glycol (Miralax) 17 gm PEG BID [facility] Last Admin: 08/21/15 11:26 Dose: Not Given - Labs Labs (last 24 hours): Laboratory Results - last 24 hr 12/01/15 07:46 POC Glucose (mg/dL) 116 H - Constitutional Appears: Non-toxic, No Acute Distress, Chronically Ill - Head Exam Head Exam: NORMAL INSPECTION - Eye Exam Eye Exam: Normal appearance - ENT Exam ENT Exam: Mucous Membranes Moist - Neck Exam Additional comments: trach in place with mask over it - Respiratory Exam Respiratory Exam: Clear to PA & Lateral, NORMAL BREATHING PATTERN - Cardiovascular Exam Cardiovascular Exam: Tachycardia, REGULAR RHYTHM, +S1, +S2 - GI/Abdominal Exam GI & Abdominal Exam: Normal Bowel Sounds, Soft. absent: Distended, Firm Additional comments: PEG in place clean dressing - Extremities Exam Extremities exam: normal capillary refill. absent: pedal edema - Neurological Exam Neurological exam: Altered - Skin Skin Exam: Normal Color, Warm Assessment/Plan (1) Respiratory failure Current Visit: Yes Status: Acute Comment: POD #5 tracheostomy with tube change with Dr. Chan No blood tinged secretions noted Bronchial washing grew Pseudomonas, started Cipro 400mg IV BID on 11/30/15 Monitor (2) Anoxic encephalopathy Current Visit: Yes Status: Chronic Comment: No acute change in mental status. patient with trach in place. Patient with PEG tube. Pending placement (3) CAD (coronary artery disease) Current Visit: Yes Status: Acute Comment: s/p STEMI and stent placement Continue ASA 325mg PO daily Continue Lisinopril 5mg PO daily Continue Plavix 75mg PO daily (4) Bed sore Current Visit: Yes Status: Acute Comment: Continue wound care, [facility] and [facility]. Continue repositioning of patient q2H. dolphin mattress. Heel air boots. 11/19: Continue wound care and current management. 11/16: Continue current management of wound care. 11/15: Continue wound care, [facility] and [facility]. 11/13: Continue to improve. Continue wound care, [facility] and [facility]. 11/09: Continue wound care. 11/06: Visualized today. Continue wound care. 11/02: Continue wound care. Will check 1x a week. 10/23: Improving, continue wound care. 10/22: -wound care following patient 10/19: -examined today -continue treatment with [facility] and [facility] as per Wound Care 10/12--> cont LWC as per Plastic and Wound care team 10/10: Wound care recommendations: [facility] to buttocks around ulcer, [facility] to necrotic tissue, Position Q2 hours, Recall when necrotic tissue is soft/loose for debridement 10/09: sacral ulcer, stage [address] Dr. Panchal consulted, f/u recommendations 08/09- stage one ulcer, healed, per nursing. continue repositioning of patient q2H dolphin mattress (5) Blood in stool Current Visit: Yes Status: Acute Comment: Resolved for now. C.diff negative ASA and Plavix resumed . (6) Leukocytosis Current Visit: Yes Status: Acute Comment: WBC 12.4, decreasing with no left shift Urine cx (11/22) shows pseudomonas aerg. Started Cipro IV BID on 11/30/15 Continue to monitor Previous findings: UA 11/16 positive. Urine Cx 11/16 positive for Klebsiella. s/p Rocephin IVPB for 5 days. (7) Seizures Current Visit: Yes Status: Acute Comment: Continue dilantin 100mg via PEG TID (8) Prophylactic measure Current Visit: Yes Status: Acute Comment: Lovenox 40 SC daily Pepcid 20 mg PO BID [facility] <Rashel Rodrigues - Last Filed: 12/02/15 15:19> Objective - Vital Signs/Intake and Output Vital Signs (last 24 hours): Vital Signs - 24 hr 12/01/15 12/01/15 12/02/15 20:00 21:37 05:39 Temperature 98.3 F 98.1 F Pulse Rate 99 H 105 H 96 H Respiratory 19 20 Rate Blood Pressure 95/60 L 131/78 O2 Sat by Pulse 98 98 Oximetry Intake and Output (last 12 hours): Intake & Output 12/01/15 12/02/15 12/02/15 18:59 06:59 18:59 Intake Total 1100 Output Total 800 450 Balance -800 650 Intake: Intake, IV Amount 200 Left Hand 200 Tube Feeding 700 Other 200 Output: Urine 800 450 Urethral (Yoo) 800 450 - Medications Medications: Current Medications Aspirin (Aspirin) 325 mg PO DAILY [facility] Last Admin: 11/23/15 09:42 Dose: 325 mg Clopidogrel Bisulfate (Plavix) 75 mg PO DAILY [facility] Last Admin: 11/24/15 11:02 Dose: 75 mg Enoxaparin Sodium (Lovenox) 40 mg SC DAILY [facility] Last Admin: 11/23/15 09:42 Dose: 40 mg Famotidine (Pepcid) 20 mg PO BID [facility] Last Admin: 12/02/15 10:37 Dose: 20 mg Ciprofloxacin (Cipro 400mg/200ml Dsw) 200 mls @ 133 mls/hr IVPB Q12H [facility] Last Admin: 12/02/15 12:00 Dose: 133 mls/hr Lactobacillus Acidophilus (Bacid Acidophilus) 1 cap PO BID [facility] Last Admin: 12/02/15 10:37 Dose: 1 cap Lisinopril (Zestril) 5 mg PO DAILY [facility] Last Admin: 12/02/15 10:37 Dose: 5 mg Phenytoin (Dilantin) 100 mg PEG TID [facility] Last Admin: 12/02/15 14:05 Dose: 100 mg Polyethylene Glycol (Miralax) 17 gm PEG BID [facility] Last Admin: 08/21/15 11:26 Dose: Not Given Assessment/Plan (1) Anoxic encephalopathy Current Visit: Yes Status: Chronic Comment: No acute change in mental status. patient with trach in place. Patient with PEG tube. Pending placement (2) STEMI (ST elevation myocardial infarction) Current Visit: Yes Status: Acute Comment: cardiac stents on 06/13/15. Continue Lisinopril 5mg PO daily Continue Plavix 75mg PO daily Continue ASA 325mg PO daily (3) Respiratory failure Current Visit: Yes Status: Acute Comment: POD #5 tracheostomy with tube change with Dr. Chan No blood tinged secretions noted Bronchial washing grew Pseudomonas, started Cipro 400mg IV BID on 11/30/15 Monitor (4) Seizures Current Visit: Yes Status: Acute Comment: Continue dilantin 100mg via PEG TID (5) Prophylactic measure Current Visit: Yes Status: Acute Comment: Lovenox 40 SC daily Pepcid 20 mg PO BID [facility] (6) Bed sore Current Visit: Yes Status: Acute Comment: Continue wound care, [facility] and [facility]. Continue repositioning of patient q2H. dolphin mattress. Heel air boots. 11/19: Continue wound care and current management. 11/16: Continue current management of wound care. 11/15: Continue wound care, [facility] and [facility]. 11/13: Continue to improve. Continue wound care, [facility] and [facility]. 11/09: Continue wound care. 11/06: Visualized today. Continue wound care. 11/02: Continue wound care. Will check 1x a week. 10/23: Improving, continue wound care. 10/22: -wound care following patient 10/19: -examined today -continue treatment with [facility] and [facility] as per Wound Care 10/12--> cont LWC as per Plastic and Wound care team 10/10: Wound care recommendations: [facility] to buttocks around ulcer, [facility] to necrotic tissue, Position Q2 hours, Recall when necrotic tissue is soft/loose for debridement 10/09: sacral ulcer, stage [address] Dr. Panchal consulted, f/u recommendations 08/09- stage one ulcer, healed, per nursing. continue repositioning of patient q2H [facility] Attending/Attestation - Attestation I have personally seen and examined this patient.: Yes I have fully participated in the care of the patient.: Yes I have reviewed all pertinent clinical information: Yes Notes (Text): 12/02/15 15:18 Patient was seen and examined during the round with resident. No new events patient is still on trach collar and tolerating oxygenation. Continue supportive management normal bleeding from tracheostomy aspiration
[2015-12-02] MEDS: Phenytoin 100 mg/4 ml Oral Susp UD PEG SCH ×3 (10:37→17:09)
[2015-12-02] MEDS: Lactobacillus Acidophilus 500 MU Cap PO SCH ×2 (10:37→17:09)
[2015-12-02] MEDS: Ciprofloxacin 400mg/200ml D5W 200 ML IVPB SCH ×2 (12:00→23:00)
[2015-12-03] MEDS: Phenytoin 100 mg/4 ml Oral Susp UD PEG SCH ×3 (11:19→17:15)
[2015-12-03] MEDS: Lactobacillus Acidophilus 500 MU Cap PO SCH ×2 (11:20→17:14)
[2015-12-03] MEDS: Ciprofloxacin 400mg/200ml D5W 200 ML IVPB SCH (11:24)
--- NOTE | 2015-12-03 11:56 | CP.PCM.PN ---
<Sandra Mercedes - Last Filed: 12/03/15 14:57> Subjective - Date & Time of Evaluation Date of Evaluation: 12/03/14 Time of Evaluation: 11:30 - Subjective Subjective: Pt seen and examined. Pt is awake, eyes are moving; however, pt unable to respond to verbal commands. Mental status is unchanged. Unable to obtain ROS. Pt has a lot of white mucous secretions, no evidence of blood. Pt has trach and PEG in place. Objective - Vital Signs/Intake and Output Vital Signs (last 24 hours): Temp Pulse Resp BP Pulse Ox 98.4 F 90 20 124/83 100 12/03/15 11:25 12/03/15 11:25 12/03/15 11:25 12/03/15 11:25 12/03/15 11:25 Intake and Output: 12/03/15 12/03/15 06:59 18:59 Intake Total 1100 Output Total 300 Balance 800 - Medications Medications: Current Medications Aspirin (Aspirin) 325 mg PO DAILY [facility] Last Admin: 11/23/15 09:42 Dose: 325 mg Clopidogrel Bisulfate (Plavix) 75 mg PO DAILY [facility] Last Admin: 11/24/15 11:02 Dose: 75 mg Enoxaparin Sodium (Lovenox) 40 mg SC DAILY [facility] Last Admin: 11/23/15 09:42 Dose: 40 mg Famotidine (Pepcid) 20 mg PO BID [facility] Last Admin: 12/03/15 11:20 Dose: 20 mg Ciprofloxacin (Cipro 400mg/200ml Dsw) 200 mls @ 133 mls/hr IVPB Q12H [facility] Last Admin: 12/03/15 11:24 Dose: 133 mls/hr Lactobacillus Acidophilus (Bacid Acidophilus) 1 cap PO BID [facility] Last Admin: 12/03/15 11:20 Dose: 1 cap Lisinopril (Zestril) 5 mg PO DAILY [facility] Last Admin: 12/03/15 11:20 Dose: 5 mg Phenytoin (Dilantin) 100 mg PEG TID [facility] Last Admin: 12/03/15 11:19 Dose: 100 mg Polyethylene Glycol (Miralax) 17 gm PEG BID [facility] Last Admin: 08/21/15 11:26 Dose: Not Given - Labs Labs: 11/30/15 07:16 11/30/15 07:16 PT 10.6 SECONDS (9.7-12.2) 11/24/15 14:10 INR 1.0 11/24/15 14:10 APTT 25 SECONDS (21-34) 11/24/15 14:10 - Constitutional Appears: Chronically Ill - Head Exam Head Exam: NORMAL INSPECTION - Eye Exam Eye Exam: Normal appearance Pupil Exam: PERRL - ENT Exam ENT Exam: Mucous Membranes Moist - Respiratory Exam Respiratory Exam: Clear to Ausculation Bilateral, NORMAL BREATHING PATTERN - Cardiovascular Exam Cardiovascular Exam: REGULAR RHYTHM, +S1, +S2 - GI/Abdominal Exam GI & Abdominal Exam: Soft, Normal Bowel Sounds. absent: Tenderness - Back Exam Additional comments: Back wound - Neurological Exam Neurological Exam: Altered, Awake - Skin Skin Exam: Dry, Normal Color Assessment and Plan (1) Anoxic encephalopathy Assessment & Plan: 12/03: No acute change in mental status. patient with trach in place. Patient with PEG tube. Pending placement Status: Acute (2) Respiratory failure Assessment & Plan: 12/03: POD #6 tracheostomy with tube change with Dr. Chan No blood tinged secretions noted Bronchial washing grew Pseudomonas, started Cipro 400mg IV BID on 11/30/15, As per ID, will continue till 12/08/15 and then obtain CXR and treat accordingly Monitor Status: Acute (3) STEMI (ST elevation myocardial infarction) Assessment & Plan: cardiac stents on 06/13/15. Continue Lisinopril 5mg PO daily Continue Plavix 75mg PO daily Continue ASA 325mg PO daily-currently held due to recent trach bleeding Status: Acute (4) Seizures Assessment & Plan: Continue dilantin 100mg via PEG TID Status: Acute (5) Bed sore Assessment & Plan: Continue wound care, sensicare and medihoney. Continue repositioning of patient q2H. dolphin mattress. Heel air boots. Status: Acute (6) Deep tissue injury Assessment & Plan: see above Status: Acute (7) Prophylactic measure Assessment & Plan: Lovenox 40 SC daily Pepcid 20 mg PO BID SCDs Status: Acute <Rashel Rodrigues - Last Filed: 12/03/15 23:40> Objective - Vital Signs/Intake and Output Vital Signs (last 24 hours): Temp Pulse Resp BP Pulse Ox 98.2 F 82 19 112/73 100 12/03/15 22:00 12/03/15 22:00 12/03/15 22:00 12/03/15 22:00 12/03/15 22:00 Intake and Output: 12/03/15 12/04/15 18:59 06:59 Intake Total 1020 Output Total 700 600 Balance -700 420 - Medications Medications: Current Medications Aspirin (Aspirin) 325 mg PO DAILY [facility] Last Admin: 11/23/15 09:42 Dose: 325 mg Clopidogrel Bisulfate (Plavix) 75 mg PO DAILY [facility] Last Admin: 11/24/15 11:02 Dose: 75 mg Enoxaparin Sodium (Lovenox) 40 mg SC DAILY [facility] Last Admin: 11/23/15 09:42 Dose: 40 mg Famotidine (Pepcid) 20 mg PO BID [facility] Last Admin: 12/03/15 17:14 Dose: 20 mg Ciprofloxacin (Cipro 400mg/200ml Dsw) 200 mls @ 133 mls/hr IVPB Q12H [facility] Stop: 12/08/15 12:01 Last Admin: 12/03/15 11:24 Dose: 133 mls/hr Lactobacillus Acidophilus (Bacid Acidophilus) 1 cap PO BID [facility] Last Admin: 12/03/15 17:14 Dose: 1 cap Lisinopril (Zestril) 5 mg PO DAILY [facility] Last Admin: 12/03/15 11:20 Dose: 5 mg Phenytoin (Dilantin) 100 mg PEG TID [facility] Last Admin: 12/03/15 17:15 Dose: 100 mg Polyethylene Glycol (Miralax) 17 gm PEG BID [facility] Last Admin: 08/21/15 11:26 Dose: Not Given - Labs Labs: 11/30/15 07:16 11/30/15 07:16 PT 10.6 SECONDS (9.7-12.2) 11/24/15 14:10 INR 1.0 11/24/15 14:10 APTT 25 SECONDS (21-34) 11/24/15 14:10 Assessment and Plan (1) Anoxic encephalopathy Status: Acute (2) STEMI (ST elevation myocardial infarction) Status: Acute (3) Respiratory failure Status: Acute (4) Seizures Status: Acute (5) Prophylactic measure Status: Acute (6) Bed sore Status: Acute Attending/Attestation - Attestation I have personally seen and examined this patient.: Yes I have fully participated in the care of the patient.: Yes I have reviewed all pertinent clinical information, including history, physical exam and plan: Yes
[2015-12-04] MEDS: Ciprofloxacin 400mg/200ml D5W 200 ML IVPB SCH ×2 (00:07→12:57)
[2015-12-04 07:43] LABS: ALBUMIN 3.3 g/dL (3.5-5.0)
[2015-12-04 07:46] LABS: GFR NON-AFRICAN AMERICAN > 60
[2015-12-04 07:47] LABS: ALB/GLOB RATIO 0.9 (1.0-2.1); ALT/SGPT 63 U/L (21-72); AST/SGOT 31 U/L (17-59); BLOOD UREA NITROGEN 18 mg/dL (9-20); CALCIUM 8.9 mg/dL (8.4-10.2)
[2015-12-04 08:07] LABS: BASO # 0.1 K/uL (0.0-0.2); BASO % 0.8 % (0.0-2.0); EOS # 1.4 K/uL (0.0-0.7); EOS % 15.5 % (0.0-4.0); HEMOGLOBIN 11.8 g/dL (12.0-18.0); LYMPH # 1.5 K/uL (1.0-4.3); LYMPH % 16.9 % (20.0-40.0); MEAN CELL VOLUME 94.5 fL (80.0-94.0); MEAN CORPUSCULAR HEMOGLOBIN 31.1 pg (27.0-31.0); MEAN CORPUSCULAR HGB CONC 32.9 g/dL (33.0-37.0); MEAN PLATELET VOLUME 8.8 fL (7.2-11.7); MONO # 0.5 K/uL (0.0-0.8); MONO % 5.3 % (0.0-10.0); NEUT # 5.4 K/uL (1.8-7.0); NEUT % 61.5 % (50.0-75.0); RBC 3.8 Mil/uL (4.40-5.90); RED CELL DISTRIBUTION WIDTH 14.5 % (11.5-14.5); WHITE BLOOD COUNT 8.7 K/uL (4.8-10.8)
[2015-12-04] MEDS: Phenytoin 100 mg/4 ml Oral Susp UD PEG SCH ×3 (09:22→17:11)
[2015-12-04] MEDS: Enoxaparin 40 mg Syringe SC SCH (09:22)
[2015-12-04] MEDS: Lactobacillus Acidophilus 500 MU Cap PO SCH ×2 (09:22→17:11)
--- NOTE | 2015-12-04 10:17 | CP.PCM.PN ---
<Sandra Mercedes - Last Filed: 12/04/15 10:14> Subjective - Date & Time of Evaluation Date of Evaluation: 12/04/15 Time of Evaluation: 09:30 - Subjective Subjective: Medicine Note Pt seen and examined. Pt can open eyes on painful stimulation, mental status remains unchanged. Unable to obtain ROS. As per nursing, no acute events overnight. Pt's trach does not show blood and suctioning has no blood. Pt has been afebrile. Pt in on vent and has PEG. Objective - Vital Signs/Intake and Output Vital Signs (last 24 hours): Temp Pulse Resp BP Pulse Ox 98.1 F 93 H 20 121/75 100 12/04/15 09:34 12/04/15 09:34 12/04/15 09:34 12/04/15 09:34 12/04/15 09:34 Intake and Output: 12/04/15 12/04/15 06:59 18:59 Intake Total 1020 900 Output Total 800 Balance 220 900 - Medications Medications: Current Medications Aspirin (Aspirin) 325 mg PO DAILY [facility] [place] Last Admin: 11/23/15 09:42 Dose: 325 mg Clopidogrel Bisulfate (Plavix) 75 mg PO DAILY [facility] [place] Last Admin: 12/04/15 09:21 Dose: 75 mg Enoxaparin Sodium (Lovenox) 40 mg SC DAILY [facility] [place] Last Admin: 12/04/15 09:22 Dose: 40 mg Famotidine (Pepcid) 20 mg PO BID [facility] [place] Last Admin: 12/04/15 09:21 Dose: 20 mg Ciprofloxacin (Cipro 400mg/200ml Dsw) 200 mls @ 133 mls/hr IVPB Q12H [facility] [place] Stop: 12/08/15 12:01 Last Admin: 12/04/15 00:07 Dose: 133 mls/hr Lactobacillus Acidophilus (Bacid Acidophilus) 1 cap PO BID [facility] [place] Last Admin: 12/04/15 09:22 Dose: 1 cap Lisinopril (Zestril) 5 mg PO DAILY [facility] [place] Last Admin: 12/04/15 09:21 Dose: 5 mg Phenytoin (Dilantin) 100 mg PEG TID [facility] [place] Last Admin: 12/04/15 09:22 Dose: 100 mg Polyethylene Glycol (Miralax) 17 gm PEG BID [facility] [place] Last Admin: 08/21/15 11:26 Dose: Not Given - Labs Labs: 12/04/15 07:08 12/04/15 07:08 PT 10.6 SECONDS (9.7-12.2) 11/24/15 14:10 INR 1.0 11/24/15 14:10 APTT 25 SECONDS (21-34) 11/24/15 14:10 - Constitutional Appears: Non-toxic, No Acute Distress - Head Exam Head Exam: NORMAL INSPECTION, NORMOCEPHALIC - Eye Exam Eye Exam: Normal appearance Pupil Exam: PERRL - ENT Exam ENT Exam: Mucous Membranes Moist - Respiratory Exam Respiratory Exam: Clear to Ausculation Bilateral, NORMAL BREATHING PATTERN - Cardiovascular Exam Cardiovascular Exam: REGULAR RHYTHM, +S1, +S2 - GI/Abdominal Exam GI & Abdominal Exam: Soft, Normal Bowel Sounds - Extremities Exam Extremities Exam: Normal Inspection - Back Exam Additional comments: Large sacral ulcer - Neurological Exam Neurological Exam: Altered - Skin Skin Exam: Dry, Normal Color Assessment and Plan - Assessment and Plan (Free Text) Assessment: Assessment and Plan (1) Anoxic encephalopathy Assessment & Plan: 12/04: No changes in mental status 12/03: No acute change in mental status. patient with trach in place. Patient with PEG tube. Pending placement Status: Acute (2) Respiratory failure Assessment & Plan: 1: POD#7 trachesotomy, no blood secretions noted, area is clean and dry 12/03: POD #6 tracheostomy with tube change with Dr. Chan No blood tinged secretions noted Bronchial washing grew Pseudomonas, started Cipro 400mg IV BID on 11/30/15, As per ID, will continue till 12/08/15 and then obtain CXR and treat accordingly Monitor Status: Acute (3) STEMI (ST elevation myocardial infarction) Assessment & Plan: cardiac stents on 06/13/15. Continue Lisinopril 5mg PO daily Continue Plavix 75mg PO daily Continue ASA 325mg PO daily-currently held due to recent trach bleeding Status: Acute (4) Seizures Assessment & Plan: Continue dilantin 100mg via PEG TID Status: Acute (5) Bed sore Assessment & Plan: Continue wound care, sensicare and medihoney. Continue repositioning of patient q2H. dolphin mattress. Heel air boots. Status: Acute (6) Deep tissue injury Assessment & Plan: see above Status: Acute (7) Prophylactic measure Assessment & Plan: Lovenox 40 SC daily Pepcid 20 mg PO BID SCDs Status: Acute <Rashel Rodrigues - Last Filed: 12/04/15 18:40> Objective - Vital Signs/Intake and Output Vital Signs (last 24 hours): Temp Pulse Resp BP Pulse Ox 98.2 F 94 H 20 145/88 99 12/04/15 13:14 12/04/15 13:14 12/04/15 13:14 12/04/15 13:14 12/04/15 13:14 Intake and Output: 12/04/15 12/04/15 06:59 18:59 Intake Total 1020 900 Output Total 800 600 Balance 220 300 - Medications Medications: Current Medications Aspirin (Aspirin) 325 mg PO DAILY [facility] Last Admin: 11/23/15 09:42 Dose: 325 mg Ciprofloxacin (Cipro) 500 mg PO BID [facility] [place] Last Admin: 12/04/15 17:11 Dose: 500 mg Clopidogrel Bisulfate (Plavix) 75 mg PO DAILY [facility] [place] Last Admin: 12/04/15 09:21 Dose: 75 mg Enoxaparin Sodium (Lovenox) 40 mg SC DAILY [facility] [place] Last Admin: 12/04/15 09:22 Dose: 40 mg Famotidine (Pepcid) 20 mg PO BID [facility] [place] Last Admin: 12/04/15 17:11 Dose: 20 mg Lactobacillus Acidophilus (Bacid Acidophilus) 1 cap PO BID [facility] Last Admin: 12/04/15 17:11 Dose: 1 cap Lisinopril (Zestril) 5 mg PO DAILY [facility] Last Admin: 12/04/15 09:21 Dose: 5 mg Phenytoin (Dilantin) 100 mg PEG TID [facility] Last Admin: 12/04/15 17:11 Dose: 100 mg Polyethylene Glycol (Miralax) 17 gm PEG BID [facility] Last Admin: 08/21/15 11:26 Dose: Not Given - Labs Labs: 12/04/15 07:08 12/04/15 07:08 PT 10.6 SECONDS (9.7-12.2) 11/24/15 14:10 INR 1.0 11/24/15 14:10 APTT 25 SECONDS (21-34) 11/24/15 14:10 Assessment and Plan (1) Anoxic encephalopathy Status: Acute (2) STEMI (ST elevation myocardial infarction) Status: Acute (3) Respiratory failure Status: Acute (4) Seizures Status: Acute (5) Prophylactic measure Status: Acute (6) Bed sore Status: Acute Attending/Attestation - Attestation I have personally seen and examined this patient.: Yes I have fully participated in the care of the patient.: Yes I have reviewed all pertinent clinical information, including history, physical exam and plan: Yes Notes (Text): 12/04/15 18:37 Patient was seen and examined during the round with residents. Patient condition remained the same patient is still on trach collar. Continue tube feeding as plan. Patient family and case management and medical team has a discussion about the patient discharge planning. Discussion was held by the resident who speak patient family language. Patient family what discussed about the option for the discharge planning including subacute placement/long-term longterm placement. And family also willing to consider to take the patient home if normal of the upper option feasible. Hospital case management also told the family that they will consider to discussed with the administration regarding the extent of the help to give the patient either subacute all home and then will be the another meeting next week to finalize a plan Patient family satisfied with the discussion and appreciated about the patient care.
--- NOTE | 2015-12-05 10:00 | CP.PCM.PN ---
<ViryJudith H - Last Filed: 12/05/15 09:57> Subjective - Date & Time of Evaluation Date of Evaluation: 12/05/15 Time of Evaluation: 07:45 - Subjective Subjective: PGY1 Medicine Note - Dr. Rodrigues's serivce: Patient seen and examined at bedside this AM. Patient opens eyes spontaneously, mental status remains unchanged. Unable to obtain ROS. Patient's trach does not show blood and suctioning has no blood. Patient has been afebrile. Patient has mask over trach connected to 7L O2 and has PEG. Objective - Vital Signs/Intake and Output Vital Signs (last 24 hours): Temp Pulse Resp BP Pulse Ox 98.0 F 89 20 129/75 98 12/05/15 05:54 12/05/15 05:54 12/05/15 05:54 12/05/15 05:54 12/05/15 05:54 Intake and Output: 12/05/15 12/05/15 06:59 18:59 Output Total 750 Balance -750 - Medications Medications: Current Medications Aspirin (Aspirin) 325 mg PO DAILY [facility] Last Admin: 11/23/15 09:42 Dose: 325 mg Ciprofloxacin (Cipro) 500 mg PO BID [facility] Last Admin: 12/04/15 17:11 Dose: 500 mg Clopidogrel Bisulfate (Plavix) 75 mg PO DAILY [facility] Last Admin: 12/04/15 09:21 Dose: 75 mg Enoxaparin Sodium (Lovenox) 40 mg SC DAILY [facility] Last Admin: 12/04/15 09:22 Dose: 40 mg Famotidine (Pepcid) 20 mg PO BID [facility] Last Admin: 12/04/15 17:11 Dose: 20 mg Lactobacillus Acidophilus (Bacid Acidophilus) 1 cap PO BID [facility] Last Admin: 12/04/15 17:11 Dose: 1 cap Lisinopril (Zestril) 5 mg PO DAILY [facility] Last Admin: 12/04/15 09:21 Dose: 5 mg Phenytoin (Dilantin) 100 mg PEG TID [facility] Last Admin: 12/04/15 17:11 Dose: 100 mg Polyethylene Glycol (Miralax) 17 gm PEG BID [facility] Last Admin: 08/21/15 11:26 Dose: Not Given - Labs Labs: 12/04/15 07:08 12/04/15 07:08 PT 10.6 SECONDS (9.7-12.2) 11/24/15 14:10 INR 1.0 11/24/15 14:10 APTT 25 SECONDS (21-34) 11/24/15 14:10 - Constitutional Appears: No Acute Distress, Chronically Ill - Head Exam Head Exam: NORMAL INSPECTION - Eye Exam Eye Exam: EOMI, PERRL - ENT Exam ENT Exam: Mucous Membranes Moist - Respiratory Exam Respiratory Exam: Rhonchi, NORMAL BREATHING PATTERN - Cardiovascular Exam Cardiovascular Exam: REGULAR RHYTHM, +S1, +S2 - GI/Abdominal Exam GI & Abdominal Exam: Soft, Normal Bowel Sounds. absent: Distended, Firm, Tenderness - Extremities Exam Extremities Exam: Normal Capillary Refill. absent: Pedal Edema - Neurological Exam Neurological Exam: Altered - Skin Skin Exam: Normal Color, Warm Assessment and Plan (1) Anoxic encephalopathy Assessment & Plan: 12/05: GCS 8 [id number] No change 12/04: No changes in mental status 12/03: No acute change in mental status. patient with trach in place. Patient with PEG tube. Pending placement Status: Acute (2) Respiratory failure Assessment & Plan: 12/05 POd #8 tracheostomy, no blood secretions noted, clean dressing 12/04: POD#7 trachesotomy, no blood secretions noted, area is clean and dry 1: POD #6 tracheostomy with tube change with Dr. Chan No blood tinged secretions noted Bronchial washing grew Pseudomonas, started Cipro 400mg IV BID on 11/30/15, As per ID, will continue till 12/08/15 and then obtain CXR and treat accordingly Monitor Status: Acute (3) CAD (coronary artery disease) Assessment & Plan: cardiac stents on 06/13/15. Continue Lisinopril 5mg PO daily Continue Plavix 75mg PO daily Continue ASA 325mg PO daily-currently held due to recent trach bleeding Status: Acute (4) Seizures Assessment & Plan: Continue dilantin 100mg via PEG TID Status: Acute (5) Bed sore Assessment & Plan: Continue wound care, sensicare and medihoney. Continue repositioning of patient q2H. dolphin mattress. Heel air boots. Status: Acute (6) Prophylactic measure Assessment & Plan: Lovenox 40 SC daily Pepcid 20 mg PO BID SCDs Status: Acute <Rashel Rodrigues - Last Filed: 12/05/15 17:55> Objective - Vital Signs/Intake and Output Vital Signs (last 24 hours): Temp Pulse Resp BP Pulse Ox 97.5 F L 109 H 22 122/76 100 12/05/15 14:09 12/05/15 14:09 12/05/15 14:09 12/05/15 14:09 12/05/15 14:09 Intake and Output: 12/05/15 12/05/15 06:59 18:59 Output Total 750 400 Balance -750 -400 - Medications Medications: Current Medications Aspirin (Aspirin) 325 mg PO DAILY [facility] Last Admin: 11/23/15 09:42 Dose: 325 mg Ciprofloxacin (Cipro) 500 mg PO BID [facility] Last Admin: 12/05/15 10:29 Dose: 500 mg Clopidogrel Bisulfate (Plavix) 75 mg PO DAILY [facility] Last Admin: 12/05/15 10:29 Dose: 75 mg Enoxaparin Sodium (Lovenox) 40 mg SC DAILY [facility] Last Admin: 12/05/15 10:30 Dose: 40 mg Famotidine (Pepcid) 20 mg PO BID [facility] Last Admin: 12/05/15 12:59 Dose: 20 mg Lactobacillus Acidophilus (Bacid Acidophilus) 1 cap PO BID [facility] Last Admin: 12/05/15 10:29 Dose: 1 cap Lisinopril (Zestril) 5 mg PO DAILY [facility] Last Admin: 12/05/15 10:30 Dose: 5 mg Phenytoin (Dilantin) 100 mg PEG TID [facility] Last Admin: 12/05/15 12:59 Dose: 100 mg Polyethylene Glycol (Miralax) 17 gm PEG BID [facility] Last Admin: 08/21/15 11:26 Dose: Not Given - Labs Labs: 12/04/15 07:08 12/04/15 07:08 PT 10.6 SECONDS (9.7-12.2) 11/24/15 14:10 INR 1.0 11/24/15 14:10 APTT 25 SECONDS (21-34) 11/24/15 14:10 Assessment and Plan (1) Anoxic encephalopathy Status: Acute (2) STEMI (ST elevation myocardial infarction) Status: Acute (3) Respiratory failure Status: Acute (4) Seizures Status: Acute (5) Prophylactic measure Status: Acute (6) Bed sore Status: Acute Attending/Attestation - Attestation I have personally seen and examined this patient.: Yes I have fully participated in the care of the patient.: Yes I have reviewed all pertinent clinical information, including history, physical exam and plan: Yes
[2015-12-05] MEDS: Lactobacillus Acidophilus 500 MU Cap PO SCH ×2 (10:29→17:56)
[2015-12-05] MEDS: Enoxaparin 40 mg Syringe SC SCH (10:30)
[2015-12-05] MEDS: Phenytoin 100 mg/4 ml Oral Susp UD PEG SCH ×3 (10:30→17:55)
[2015-12-06] MEDS: Phenytoin 100 mg/4 ml Oral Susp UD PEG SCH ×3 (09:59→17:20)
[2015-12-06] MEDS: Enoxaparin 40 mg Syringe SC SCH (09:59)
[2015-12-06] MEDS: Lactobacillus Acidophilus 500 MU Cap PO SCH ×2 (10:01→17:20)
--- NOTE | 2015-12-06 12:37 | CP.PCM.PN ---
<ViryJudith H - Last Filed: 12/06/15 12:32> Subjective - Date & Time of Evaluation Date of Evaluation: 12/06/15 Time of Evaluation: 08:00 - Subjective Subjective: PGY1 Medicine Note - Dr. Rodrigues's serivce: Patient seen and examined at bedside this AM. Patient opens eyes spontaneously, mental status remains unchanged. Unable to obtain ROS. Patient's trach does not show blood. Patient has been afebrile. Patient on 7L humidified O2 via trach collar. Objective - Vital Signs/Intake and Output Vital Signs (last 24 hours): Temp Pulse Resp BP Pulse Ox 98.1 F 85 20 145/91 H 100 12/06/15 09:41 12/06/15 09:41 12/06/15 09:41 12/06/15 09:41 12/06/15 09:41 Intake and Output: 12/06/15 12/06/15 06:59 18:59 Intake Total 750 Output Total 1200 Balance -450 - Medications Medications: Current Medications Aspirin (Aspirin) 325 mg PO DAILY [facility] Last Admin: 11/23/15 09:42 Dose: 325 mg Ciprofloxacin (Cipro) 500 mg PO BID [facility] Last Admin: 12/06/15 10:00 Dose: 500 mg Clopidogrel Bisulfate (Plavix) 75 mg PO DAILY [facility] Last Admin: 12/06/15 10:00 Dose: 75 mg Enoxaparin Sodium (Lovenox) 40 mg SC DAILY [facility] Last Admin: 12/06/15 09:59 Dose: 40 mg Famotidine (Pepcid) 20 mg PO BID [facility] Last Admin: 12/06/15 10:01 Dose: 20 mg Lactobacillus Acidophilus (Bacid Acidophilus) 1 cap PO BID [facility] Last Admin: 12/06/15 10:01 Dose: 1 cap Lisinopril (Zestril) 5 mg PO DAILY [facility] Last Admin: 12/06/15 10:00 Dose: 5 mg Phenytoin (Dilantin) 100 mg PEG TID [facility] Last Admin: 12/06/15 09:59 Dose: 100 mg Polyethylene Glycol (Miralax) 17 gm PEG BID [facility] Last Admin: 08/21/15 11:26 Dose: Not Given - Labs Labs: 12/04/15 07:08 12/04/15 07:08 PT 10.6 SECONDS (9.7-12.2) 11/24/15 14:10 INR 1.0 11/24/15 14:10 APTT 25 SECONDS (21-34) 11/24/15 14:10 - Constitutional Appears: No Acute Distress, Chronically Ill - Head Exam Head Exam: NORMAL INSPECTION - Eye Exam Eye Exam: PERRL. absent: Scleral icterus - ENT Exam ENT Exam: Mucous Membranes Moist - Respiratory Exam Respiratory Exam: Rhonchi, NORMAL BREATHING PATTERN. absent: Wheezes - Cardiovascular Exam Cardiovascular Exam: REGULAR RHYTHM, +S1, +S2 - GI/Abdominal Exam GI & Abdominal Exam: Soft, Normal Bowel Sounds Additional comments: peg with clean and dry dressing - Extremities Exam Extremities Exam: Normal Capillary Refill. absent: Pedal Edema - Neurological Exam Neurological Exam: Altered - Skin Skin Exam: Dry, Normal Color. absent: Intact (stage II 1.5x3cm scaral ulcer) Assessment and Plan (1) Anoxic encephalopathy Status: Acute (2) Respiratory failure Status: Acute (3) CAD (coronary artery disease) Status: Acute (4) Seizures Status: Acute (5) Bed sore Status: Acute (6) Prophylactic measure Status: Acute - Assessment and Plan (Free Text) Assessment: (1) Anoxic encephalopathy Assessment & Plan: GCS 8 [id number] No change in mental status patient with trach in place. Patient with PEG tube. Pending placement Status: Acute (2) Respiratory failure Assessment & Plan: tracheostomy with tube change with Dr. Chan POD #9 clean and dry site saturating well on 7L O2 via trach collar No blood tinged secretions noted Bronchial washing grew Pseudomonas, started Cipro 400mg IV BID on 11/30/15, As per ID, will continue till 12/08/15 and then obtain CXR and treat accordingly Monitor Status: Acute (3) CAD (coronary artery disease) Assessment & Plan: cardiac stents on 06/13/15. Continue Lisinopril 5mg PO daily Continue Plavix 75mg PO daily Continue ASA 325mg PO daily-currently held due to recent trach bleeding Status: Acute (4) Seizures Assessment & Plan: Continue dilantin 100mg via PEG TID Status: Acute (5) Bed sore Assessment & Plan: Stage II 1.5cm x 3cm sacral ulcer Continue wound care, sensicare and medihoney. Continue repositioning of patient q2H. dolphin mattress. Heel air boots. Status: Acute (6) Prophylactic measure Assessment & Plan: Lovenox 40 SC daily Pepcid 20 mg PO BID [facility] Status: Acute <Rashel Rodrigues - Last Filed: 12/06/15 16:48> Objective - Vital Signs/Intake and Output Vital Signs (last 24 hours): Temp Pulse Resp BP Pulse Ox 98.1 F 87 20 115/78 100 12/06/15 13:47 12/06/15 13:47 12/06/15 13:47 12/06/15 13:47 12/06/15 13:47 Intake and Output: 12/06/15 12/06/15 06:59 18:59 Intake Total 750 Output Total 1200 Balance -450 - Medications Medications: Current Medications Aspirin (Aspirin) 325 mg PO DAILY [facility] Last Admin: 11/23/15 09:42 Dose: 325 mg Ciprofloxacin (Cipro) 500 mg PO BID [facility] Last Admin: 12/06/15 10:00 Dose: 500 mg Clopidogrel Bisulfate (Plavix) 75 mg PO DAILY [facility] Last Admin: 12/06/15 10:00 Dose: 75 mg Enoxaparin Sodium (Lovenox) 40 mg SC DAILY [facility] Last Admin: 12/06/15 09:59 Dose: 40 mg Famotidine (Pepcid) 20 mg PO BID [facility] Last Admin: 12/06/15 10:01 Dose: 20 mg Lactobacillus Acidophilus (Bacid Acidophilus) 1 cap PO BID [facility] Last Admin: 12/06/15 10:01 Dose: 1 cap Lisinopril (Zestril) 5 mg PO DAILY [facility] Last Admin: 12/06/15 10:00 Dose: 5 mg Phenytoin (Dilantin) 100 mg PEG TID [facility] Last Admin: 12/06/15 13:49 Dose: 100 mg Polyethylene Glycol (Miralax) 17 gm PEG BID [facility] Last Admin: 08/21/15 11:26 Dose: Not Given - Labs Labs: 12/04/15 07:08 12/04/15 07:08 PT 10.6 SECONDS (9.7-12.2) 11/24/15 14:10 INR 1.0 11/24/15 14:10 APTT 25 SECONDS (21-34) 11/24/15 14:10 Assessment and Plan (1) Anoxic encephalopathy Status: Acute (2) STEMI (ST elevation myocardial infarction) Status: Acute (3) Respiratory failure Status: Acute (4) Seizures Status: Acute (5) Prophylactic measure Status: Acute (6) Bed sore Status: Acute Attending/Attestation - Attestation I have personally seen and examined this patient.: Yes I have fully participated in the care of the patient.: Yes I have reviewed all pertinent clinical information, including history, physical exam and plan: Yes Notes (Text): 12/06/15 16:48 Patient was seen and examined during the round with residents. There was no new events patient remains on trach collar. Continue current supportive management Patient family at bedside. Awaiting for placement
[2015-12-07 07:55] LABS: MONO # 0.8 K/uL (0.0-0.8)
[2015-12-07 08:07] LABS: ALBUMIN 3.3 g/dL (3.5-5.0)
[2015-12-07 08:10] LABS: ALB/GLOB RATIO 0.9 (1.0-2.1); AST/SGOT 29 U/L (17-59); BLOOD UREA NITROGEN 18 mg/dL (9-20); GFR NON-AFRICAN AMERICAN > 60
[2015-12-07 08:11] LABS: ALT/SGPT 52 U/L (21-72); CALCIUM 8.8 mg/dL (8.4-10.2)
[2015-12-07 08:24] LABS: BASO % 0.2 % (0.0-2.0); EOS % 18.9 % (0.0-4.0); HEMOGLOBIN 11.8 g/dL (12.0-18.0); LYMPH # 1.4 K/uL (1.0-4.3); LYMPH % 13.1 % (20.0-40.0); MEAN CELL VOLUME 92.9 fL (80.0-94.0); MEAN CORPUSCULAR HEMOGLOBIN 32.2 pg (27.0-31.0); MEAN CORPUSCULAR HGB CONC 34.7 g/dL (33.0-37.0); MEAN PLATELET VOLUME 8.1 fL (7.2-11.7); MONO % 7.4 % (0.0-10.0); NEUT # 6.3 K/uL (1.8-7.0); NEUT % 60.4 % (50.0-75.0); NRBC % 0.1 % (0.0-2.0); RBC 3.65 Mil/uL (4.40-5.90); RED CELL DISTRIBUTION WIDTH 14.5 % (11.5-14.5); WHITE BLOOD COUNT 10.4 K/uL (4.8-10.8)
[2015-12-07] MEDS: Phenytoin 100 mg/4 ml Oral Susp UD PEG SCH ×3 (10:05→17:42)
[2015-12-07] MEDS: Lactobacillus Acidophilus 500 MU Cap PO SCH ×2 (10:05→17:42)
[2015-12-07] MEDS: Enoxaparin 40 mg Syringe SC SCH (11:14)
--- NOTE | 2015-12-07 14:38 | CP.PCM.PN ---
<ViryJudith H - Last Filed: 12/07/15 14:33> Subjective - Date & Time of Evaluation Date of Evaluation: 12/07/15 Time of Evaluation: 09:30 - Subjective Subjective: PGY1 Medicine Note - Dr. Rodrigues's serivce: Patient seen and examined at bedside this AM. Patient opens eyes spontaneously, mental status remains unchanged. Unable to obtain ROS. Patient's trach does not show blood. Patient has been afebrile. Patient on 7L humidified O2 via trach collar. Objective - Vital Signs/Intake and Output Vital Signs (last 24 hours): Temp Pulse Resp BP Pulse Ox 98.2 F 107 H 18 123/74 96 12/07/15 14:00 12/07/15 14:00 12/07/15 14:00 12/07/15 14:00 12/07/15 14:00 Intake and Output: 12/07/15 12/07/15 06:59 18:59 Intake Total 850 Output Total 800 250 Balance 50 -250 - Medications Medications: Current Medications Aspirin (Aspirin) 325 mg PO DAILY [facility] Last Admin: 11/23/15 09:42 Dose: 325 mg Ciprofloxacin (Cipro) 500 mg PO BID [facility] Last Admin: 12/07/15 10:05 Dose: 500 mg Clopidogrel Bisulfate (Plavix) 75 mg PO DAILY [facility] Last Admin: 12/07/15 11:14 Dose: 75 mg Enoxaparin Sodium (Lovenox) 40 mg SC DAILY [facility] Last Admin: 12/07/15 11:14 Dose: 40 mg Famotidine (Pepcid) 20 mg PO BID [facility] Last Admin: 12/07/15 10:05 Dose: 20 mg Lactobacillus Acidophilus (Bacid Acidophilus) 1 cap PO BID [facility] Last Admin: 12/07/15 10:05 Dose: 1 cap Lisinopril (Zestril) 5 mg PO DAILY [facility] Last Admin: 12/07/15 11:15 Dose: 5 mg Phenytoin (Dilantin) 100 mg PEG TID [facility] Last Admin: 12/07/15 10:05 Dose: 100 mg Polyethylene Glycol (Miralax) 17 gm PEG BID [facility] Last Admin: 08/21/15 11:26 Dose: Not Given - Labs Labs: 12/07/15 07:28 12/07/15 07:28 PT 10.6 SECONDS (9.7-12.2) 11/24/15 14:10 INR 1.0 11/24/15 14:10 APTT 25 SECONDS (21-34) 11/24/15 14:10 - Constitutional Appears: No Acute Distress, Chronically Ill - Head Exam Head Exam: NORMAL INSPECTION - Eye Exam Eye Exam: PERRL. absent: Scleral icterus - ENT Exam ENT Exam: Mucous Membranes Moist - Respiratory Exam Respiratory Exam: Rales, Rhonchi - Cardiovascular Exam Cardiovascular Exam: REGULAR RHYTHM, +S1, +S2 - GI/Abdominal Exam GI & Abdominal Exam: Soft, Normal Bowel Sounds. absent: Distended, Firm, Tenderness Additional comments: peg in place no drainage, clean dressing - Extremities Exam Extremities Exam: Normal Capillary Refill. absent: Pedal Edema - Neurological Exam Neurological Exam: Altered - Skin Skin Exam: Normal Color, Warm Assessment and Plan (1) Anoxic encephalopathy Status: Acute (2) Respiratory failure Status: Acute (3) CAD (coronary artery disease) Status: Acute (4) Seizures Status: Acute (5) Bed sore Status: Acute (6) Prophylactic measure Status: Acute - Assessment and Plan (Free Text) Assessment: (1) Anoxic encephalopathy Assessment & Plan: GCS 8 [id number] No change in mental status patient with trach in place. Patient with PEG tube. Pending placement Status: Acute (2) Respiratory failure Assessment & Plan: tracheostomy with tube change with Dr. Chan POD #10 F/U repeat sputum culture results clean and dry site saturating well on 7L O2 via trach collar No blood tinged secretions noted Bronchial washing grew Pseudomonas, started Cipro 400mg IV BID on 11/30/15, As per ID, will continue till 12/08/15 and then obtain CXR and treat accordingly Monitor Status: Acute (3) CAD (coronary artery disease) Assessment & Plan: cardiac stents on 06/13/15. Continue Lisinopril 5mg PO daily Continue Plavix 75mg PO daily Continue ASA 325mg PO daily-currently held due to recent trach bleeding Status: Acute (4) Seizures Assessment & Plan: Continue dilantin 100mg via PEG TID Status: Acute (5) Bed sore Assessment & Plan: Stage II 1.5cm x 3cm sacral ulcer Continue wound care, sensicare and medihoney. Continue repositioning of patient q2H. dolphin mattress. Heel air boots. Status: Acute (6) Prophylactic measure Assessment & Plan: Lovenox 40 SC daily Pepcid 20 mg PO BID [facility] Status: Acute <Rashel Rodrigues - Last Filed: 12/07/15 17:47> Objective - Vital Signs/Intake and Output Vital Signs (last 24 hours): Temp Pulse Resp BP Pulse Ox 98.2 F 107 H 18 123/74 96 12/07/15 14:00 12/07/15 14:00 12/07/15 14:00 12/07/15 14:00 12/07/15 14:00 Intake and Output: 12/07/15 12/07/15 06:59 18:59 Intake Total 850 Output Total 800 250 Balance 50 -250 - Medications Medications: Current Medications Aspirin (Aspirin) 325 mg PO DAILY [facility] Last Admin: 11/23/15 09:42 Dose: 325 mg Ciprofloxacin (Cipro) 500 mg PO BID [facility] Last Admin: 12/07/15 17:42 Dose: 500 mg Clopidogrel Bisulfate (Plavix) 75 mg PO DAILY [facility] Last Admin: 12/07/15 11:14 Dose: 75 mg Enoxaparin Sodium (Lovenox) 40 mg SC DAILY [facility] Last Admin: 12/07/15 11:14 Dose: 40 mg Famotidine (Pepcid) 20 mg PO BID [facility] Last Admin: 12/07/15 17:42 Dose: 20 mg Lactobacillus Acidophilus (Bacid Acidophilus) 1 cap PO BID [facility] Last Admin: 12/07/15 17:42 Dose: 1 cap Lisinopril (Zestril) 5 mg PO DAILY [facility] Last Admin: 12/07/15 11:15 Dose: 5 mg Phenytoin (Dilantin) 100 mg PEG TID [facility] Last Admin: 12/07/15 17:42 Dose: 100 mg Polyethylene Glycol (Miralax) 17 gm PEG BID [facility] Last Admin: 08/21/15 11:26 Dose: Not Given - Labs Labs: 12/07/15 07:28 12/07/15 07:28 PT 10.6 SECONDS (9.7-12.2) 11/24/15 14:10 INR 1.0 11/24/15 14:10 APTT 25 SECONDS (21-34) 11/24/15 14:10 Assessment and Plan (1) Anoxic encephalopathy Status: Acute (2) STEMI (ST elevation myocardial infarction) Status: Acute (3) Respiratory failure Status: Acute (4) Seizures Status: Acute (5) Prophylactic measure Status: Acute (6) Bed sore Status: Acute Attending/Attestation - Attestation I have personally seen and examined this patient.: Yes I have fully participated in the care of the patient.: Yes I have reviewed all pertinent clinical information, including history, physical exam and plan: Yes Notes (Text): 12/07/15 17:47 Patient was seen and examined during the round with residents. Condition condition remained the same continue trach collar with oxygen Diamox 35% Patient family will be trained for tracheostomy care including suctioning and to feeding by nurse daily and family comfortable Awaiting placement
--- NOTE | 2015-12-08 00:32 | CP.PCM.PN ---
Addendum entered and electronically signed by Nely Pate DO 12/08/15 06:05 : Per ID recommendations, Cipro stopped today. f/u Chest Xray ordered today. Original Note: <Nely Pate - Last Filed: 12/08/15 00:28> Subjective - Date & Time of Evaluation Date of Evaluation: 12/08/15 Time of Evaluation: 00:28 - Subjective Subjective: Patient seen and examined. During examination, patient tensed arms and abdominal muscles for several seconds before relaxing again. Pt does not appear to be in acute distress. Breathing on trach. No blood or secretions noted. ROS not obtained due to chronic condition. Objective - Vital Signs/Intake and Output Vital Signs (last 24 hours): Temp Pulse Resp BP Pulse Ox 99.2 F 88 18 127/87 100 12/07/15 21:54 12/07/15 21:54 12/07/15 21:54 12/07/15 21:54 12/07/15 21:54 Intake and Output: 12/07/15 12/08/15 18:59 06:59 Output Total 250 400 Balance -250 -400 - Medications Medications: Current Medications Aspirin (Aspirin) 325 mg PO DAILY [facility] Last Admin: 11/23/15 09:42 Dose: 325 mg Ciprofloxacin (Cipro) 500 mg PO BID [facility] Last Admin: 12/07/15 17:42 Dose: 500 mg Clopidogrel Bisulfate (Plavix) 75 mg PO DAILY [facility] Last Admin: 12/07/15 11:14 Dose: 75 mg Enoxaparin Sodium (Lovenox) 40 mg SC DAILY [facility] Last Admin: 12/07/15 11:14 Dose: 40 mg Famotidine (Pepcid) 20 mg PO BID [facility] Last Admin: 12/07/15 17:42 Dose: 20 mg Lactobacillus Acidophilus (Bacid Acidophilus) 1 cap PO BID [facility] Last Admin: 12/07/15 17:42 Dose: 1 cap Lisinopril (Zestril) 5 mg PO DAILY [facility] Last Admin: 12/07/15 11:15 Dose: 5 mg Phenytoin (Dilantin) 100 mg PEG TID [facility] Last Admin: 12/07/15 17:42 Dose: 100 mg Polyethylene Glycol (Miralax) 17 gm PEG BID [facility] Last Admin: 08/21/15 11:26 Dose: Not Given - Labs Labs: 12/07/15 07:28 12/07/15 07:28 PT 10.6 SECONDS (9.7-12.2) 11/24/15 14:10 INR 1.0 11/24/15 14:10 APTT 25 SECONDS (21-34) 11/24/15 14:10 - Constitutional Appears: Chronically Ill - Head Exam Head Exam: ATRAUMATIC, NORMOCEPHALIC - Eye Exam Eye Exam: Normal appearance - ENT Exam ENT Exam: Mucous Membranes Moist - Respiratory Exam Respiratory Exam: Clear to Ausculation Bilateral, NORMAL BREATHING PATTERN. absent: Rales, Rhonchi, Wheezes, Respiratory Distress - Cardiovascular Exam Cardiovascular Exam: REGULAR RHYTHM, +S1, +S2 - GI/Abdominal Exam GI & Abdominal Exam: Normal Bowel Sounds - Extremities Exam Extremities Exam: absent: Pedal Edema - Neurological Exam Neurological Exam: Altered - Skin Skin Exam: Dry, Intact, Normal Color, Warm Assessment and Plan (1) Anoxic encephalopathy Assessment & Plan: No acute change in mental status GCS 8 [id number] patient with trach in place. Patient with PEG tube. Pending placement Status: Acute (2) Respiratory failure Assessment & Plan: tracheostomy with tube change with Dr. Chan POD #10 F/U repeat sputum culture results clean and dry site saturating well on 7L O2 via trach collar No blood tinged secretions noted Bronchial washing grew Pseudomonas, started Cipro 400mg IV BID on 11/30/15, As per ID, will continue till 12/08/15 and then obtain CXR and treat accordingly Monitor Status: Acute (3) CAD (coronary artery disease) Assessment & Plan: cardiac stents on 06/13/15. Continue Lisinopril 5mg PO daily Continue Plavix 75mg PO daily Continue ASA 325mg PO daily-currently held due to recent trach bleeding Status: Acute (4) Seizures Assessment & Plan: Continue dilantin 100mg via PEG TID Status: Acute (5) Bed sore Assessment & Plan: Stage II 1.5cm x 3cm sacral ulcer Continue wound care, sensicare and medihoney. Continue repositioning of patient q2H. dolphin mattress. Heel air boots. Status: Acute (6) Prophylactic measure Assessment & Plan: Lovenox 40 SC daily Pepcid 20 mg PO BID [facility] Status: Acute <Rsahel Rodrigues - Last Filed: 12/08/15 13:34> Objective - Vital Signs/Intake and Output Vital Signs (last 24 hours): Temp Pulse Resp BP Pulse Ox 97.2 F L 86 18 152/77 H 96 12/08/15 06:19 12/08/15 06:19 12/08/15 06:19 12/08/15 06:19 12/08/15 06:19 Intake and Output: 12/08/15 12/08/15 06:59 18:59 Intake Total 850 Output Total 600 Balance 250 - Medications Medications: Current Medications Aspirin (Aspirin) 325 mg PO DAILY [facility] Last Admin: 11/23/15 09:42 Dose: 325 mg Clopidogrel Bisulfate (Plavix) 75 mg PO DAILY [facility] Last Admin: 12/07/15 11:14 Dose: 75 mg Enoxaparin Sodium (Lovenox) 40 mg SC DAILY [facility] Last Admin: 12/07/15 11:14 Dose: 40 mg Famotidine (Pepcid) 20 mg PO BID [facility] Last Admin: 12/07/15 17:42 Dose: 20 mg Lactobacillus Acidophilus (Bacid Acidophilus) 1 cap PO BID [facility] Last Admin: 12/07/15 17:42 Dose: 1 cap Lisinopril (Zestril) 5 mg PO DAILY [facility] Last Admin: 12/07/15 11:15 Dose: 5 mg Phenytoin (Dilantin) 100 mg PEG TID [facility] Last Admin: 12/07/15 17:42 Dose: 100 mg Polyethylene Glycol (Miralax) 17 gm PEG BID [facility] Last Admin: 08/21/15 11:26 Dose: Not Given - Labs Labs: 12/07/15 07:28 12/07/15 07:28 PT 10.6 SECONDS (9.7-12.2) 11/24/15 14:10 INR 1.0 11/24/15 14:10 APTT 25 SECONDS (21-34) 11/24/15 14:10 Assessment and Plan (1) Anoxic encephalopathy Status: Acute (2) STEMI (ST elevation myocardial infarction) Status: Acute (3) Respiratory failure Status: Acute (4) Seizures Status: Acute (5) Prophylactic measure Status: Acute (6) Bed sore Status: Acute Attending/Attestation - Attestation I have personally seen and examined this patient.: Yes I have fully participated in the care of the patient.: Yes I have reviewed all pertinent clinical information, including history, physical exam and plan: Yes
--- NOTE | 2015-12-08 08:42 | RAD ---
HISTORY: tracheostomy, compare to previous CXR COMPARISON: 11/24/2015 FINDINGS: LUNGS: Tracheostomy tube appears deviated to the left which may be related to patient positioning. Clinical correlation as this does not project over the midline trachea. Bibasilar atelectasis. Mild stable nodularity at the right lung base. PLEURA: No significant pleural effusion identified, no pneumothorax apparent. CARDIOVASCULAR: Normal. OSSEOUS STRUCTURES: No significant abnormalities. VISUALIZED UPPER ABDOMEN: Normal. OTHER FINDINGS: None. IMPRESSION: Tracheostomy tube appears deviated to the left which may be related to patient positioning. Clinical correlation as this does not project over the midline trachea. Bibasilar atelectasis. Mild stable nodularity at the right lung base.
[2015-12-08] MEDS: Lactobacillus Acidophilus 500 MU Cap PO SCH ×2 (10:10→17:42)
[2015-12-08] MEDS: Phenytoin 100 mg/4 ml Oral Susp UD PEG SCH ×3 (10:10→17:42)
[2015-12-08] MEDS: Enoxaparin 40 mg Syringe SC SCH (10:10)
--- NOTE | 2015-12-09 04:10 | CP.PCM.PN ---
<Nely Pate - Last Filed: 12/09/15 04:06> Subjective - Date & Time of Evaluation Date of Evaluation: 12/09/15 Time of Evaluation: 00:00 - Subjective Subjective: Patient seen and examined. Patient's eyes open. Not responsive to verbal commands. No acute change in mental status. Objective - Vital Signs/Intake and Output Vital Signs (last 24 hours): Temp Pulse Resp BP Pulse Ox 98.1 F 95 H 18 122/46 L 98 12/08/15 21:00 12/08/15 21:00 12/08/15 21:00 12/08/15 21:00 12/08/15 21:00 Intake and Output: 12/08/15 12/09/15 18:59 06:59 Output Total 175 200 Balance -175 -200 - Medications Medications: Current Medications Aspirin (Aspirin) 325 mg PO DAILY [facility] Last Admin: 11/23/15 09:42 Dose: 325 mg Clopidogrel Bisulfate (Plavix) 75 mg PO DAILY [facility] Last Admin: 12/08/15 10:10 Dose: 75 mg Enoxaparin Sodium (Lovenox) 40 mg SC DAILY [facility] Last Admin: 12/08/15 10:10 Dose: 40 mg Famotidine (Pepcid) 20 mg PO BID [facility] Last Admin: 12/08/15 17:42 Dose: 20 mg Lactobacillus Acidophilus (Bacid Acidophilus) 1 cap PO BID [facility] Last Admin: 12/08/15 17:42 Dose: 1 cap Lisinopril (Zestril) 5 mg PO DAILY [facility] Last Admin: 12/08/15 10:10 Dose: 5 mg Phenytoin (Dilantin) 100 mg PEG TID [facility] Last Admin: 12/08/15 17:42 Dose: 100 mg Polyethylene Glycol (Miralax) 17 gm PEG BID [facility] Last Admin: 08/21/15 11:26 Dose: Not Given - Labs Labs: 12/07/15 07:28 12/07/15 07:28 PT 10.6 SECONDS (9.7-12.2) 11/24/15 14:10 INR 1.0 11/24/15 14:10 APTT 25 SECONDS (21-34) 11/24/15 14:10 - Constitutional Appears: Non-toxic, No Acute Distress, Chronically Ill - Head Exam Head Exam: ATRAUMATIC, NORMOCEPHALIC - Eye Exam Eye Exam: Normal appearance - ENT Exam ENT Exam: Mucous Membranes Moist - Respiratory Exam Respiratory Exam: Clear to Ausculation Bilateral, NORMAL BREATHING PATTERN. absent: Rales, Rhonchi, Wheezes, Respiratory Distress - Cardiovascular Exam Cardiovascular Exam: REGULAR RHYTHM, +S1, +S2 - GI/Abdominal Exam GI & Abdominal Exam: Soft, Normal Bowel Sounds. absent: Firm, Guarding, Rigid - Extremities Exam Extremities Exam: absent: Pedal Edema - Neurological Exam Neurological Exam: Altered. absent: Alert - Skin Skin Exam: Dry, Intact, Normal Color, Warm Assessment and Plan (1) Anoxic encephalopathy Assessment & Plan: No acute change in mental status GCS 8 E4V1M3 patient with trach in place. Patient with PEG tube. Pending placement Status: Acute (2) Respiratory failure Assessment & Plan: tracheostomy with tube change with Dr. Chan on 11/27/15 CXR 12/08--> Tracheostomy tube appears deviated to the left which may be related to patient positioning. Clinical correlation as this does not project over the midline trachea. Bibasilar atelectasis. Mild stable nodularity at the right lung base. (see full report) f/u with Dr Armstrong regarding further antibiotics needed. Cipro started on 11/30 was stopped on 12/08. F/U repeat sputum culture results clean and dry site saturating well on 7L O2 via trach collar No blood tinged secretions noted Bronchial washing grew Pseudomonas Status: Acute (3) CAD (coronary artery disease) Assessment & Plan: cardiac stents on 06/13/15. Continue Lisinopril 5mg PO daily Continue Plavix 75mg PO daily Continue ASA 325mg PO daily-currently held due to recent trach bleeding Status: Acute (4) Seizures Assessment & Plan: Continue dilantin 100mg via PEG TID Status: Acute (5) Bed sore Assessment & Plan: Stage II 1.5cm x 3cm sacral ulcer Continue wound care, sensicare and medihoney. Continue repositioning of patient q2H. dolphin mattress. Heel air boots. Status: Acute (6) Prophylactic measure Assessment & Plan: Lovenox 40 SC daily Pepcid 20 mg PO BID [facility] Status: Acute <Rashel Rodrigues - Last Filed: 12/09/15 16:33> Objective - Vital Signs/Intake and Output Vital Signs (last 24 hours): Temp Pulse Resp BP Pulse Ox 97.5 F L 85 20 141/91 H 100 12/09/15 14:43 12/09/15 14:43 12/09/15 14:43 12/09/15 14:43 12/09/15 14:43 Intake and Output: 12/09/15 12/09/15 06:59 18:59 Output Total 550 Balance -550 - Medications Medications: Current Medications Aspirin (Aspirin) 325 mg PO DAILY [facility] Last Admin: 11/23/15 09:42 Dose: 325 mg Clopidogrel Bisulfate (Plavix) 75 mg PO DAILY [facility] Last Admin: 12/09/15 10:15 Dose: 75 mg Enoxaparin Sodium (Lovenox) 40 mg SC DAILY [facility] Last Admin: 12/09/15 10:15 Dose: 40 mg Famotidine (Pepcid) 20 mg PO BID [facility] Last Admin: 12/09/15 10:15 Dose: 20 mg Lactobacillus Acidophilus (Bacid Acidophilus) 1 cap PO BID [facility] Last Admin: 12/09/15 10:15 Dose: 1 cap Lisinopril (Zestril) 5 mg PO DAILY [facility] Last Admin: 12/09/15 10:15 Dose: 5 mg Phenytoin (Dilantin) 100 mg PEG TID [facility] Last Admin: 12/09/15 13:40 Dose: 100 mg Polyethylene Glycol (Miralax) 17 gm PEG BID [facility] Last Admin: 08/21/15 11:26 Dose: Not Given - Labs Labs: 12/07/15 07:28 12/07/15 07:28 PT 10.6 SECONDS (9.7-12.2) 11/24/15 14:10 INR 1.0 11/24/15 14:10 APTT 25 SECONDS (21-34) 11/24/15 14:10 Assessment and Plan (1) Anoxic encephalopathy Status: Acute (2) STEMI (ST elevation myocardial infarction) Status: Acute (3) Respiratory failure Status: Acute (4) Seizures Status: Acute (5) Prophylactic measure Status: Acute (6) Bed sore Status: Acute Attending/Attestation - Attestation I have personally seen and examined this patient.: Yes I have fully participated in the care of the patient.: Yes I have reviewed all pertinent clinical information, including history, physical exam and plan: Yes Notes (Text): 12/09/15 16:31 Patient was seen and examined during the round with resident. No changes and patient mental status. Continue supportive management. Discussed with staff and family for training of tube feeding and tracheostomy care to be done by the family.
[2015-12-09] MEDS: Lactobacillus Acidophilus 500 MU Cap PO SCH ×2 (10:15→17:25)
[2015-12-09] MEDS: Enoxaparin 40 mg Syringe SC SCH (10:15)
[2015-12-09] MEDS: Phenytoin 100 mg/4 ml Oral Susp UD PEG SCH ×3 (10:15→17:25)
[2015-12-10] MEDS: Lactobacillus Acidophilus 500 MU Cap PO SCH ×2 (11:21→18:06)
[2015-12-10] MEDS: Phenytoin 100 mg/4 ml Oral Susp UD PEG SCH ×3 (11:21→18:10)
[2015-12-10] MEDS: Enoxaparin 40 mg Syringe SC SCH (11:22)
--- NOTE | 2015-12-10 14:54 | CP.PCM.PN ---
<Cedric Bairesen H - Last Filed: 12/10/15 14:50> Subjective - Date & Time of Evaluation Date of Evaluation: 12/10/15 Time of Evaluation: 10:10 - Subjective Subjective: PGY1 Medicine Note - Dr. Demetrice Ying's service: Patient seen and examined at bedside this AM. Patient's eyes open spontaneously. Not responsive to verbal commands. No acute change in mental status. GCS 8: E4V1M3 Objective - Vital Signs/Intake and Output Vital Signs (last 24 hours): Temp Pulse Resp BP Pulse Ox 98.2 F 105 H 22 111/60 100 12/10/15 14:00 12/10/15 14:00 12/10/15 14:00 12/10/15 14:00 12/10/15 14:00 Intake and Output: 12/10/15 12/10/15 06:59 18:59 Output Total 425 300 Balance -425 -300 - Medications Medications: Current Medications Aspirin (Aspirin) 325 mg PO DAILY [facility] Last Admin: 11/23/15 09:42 Dose: 325 mg Clopidogrel Bisulfate (Plavix) 75 mg PO DAILY [facility] Last Admin: 12/10/15 11:21 Dose: 75 mg Enoxaparin Sodium (Lovenox) 40 mg SC DAILY [facility] Last Admin: 12/10/15 11:22 Dose: 40 mg Famotidine (Pepcid) 20 mg PO BID [facility] Last Admin: 12/10/15 11:21 Dose: 20 mg Lactobacillus Acidophilus (Bacid Acidophilus) 1 cap PO BID [facility] Last Admin: 12/10/15 11:21 Dose: 1 cap Lisinopril (Zestril) 5 mg PO DAILY [facility] Last Admin: 12/10/15 11:21 Dose: 5 mg Phenytoin (Dilantin) 100 mg PEG TID [facility] Last Admin: 12/10/15 14:04 Dose: 100 mg Polyethylene Glycol (Miralax) 17 gm PEG BID [facility] Last Admin: 08/21/15 11:26 Dose: Not Given - Labs Labs: 12/07/15 07:28 12/07/15 07:28 PT 10.6 SECONDS (9.7-12.2) 11/24/15 14:10 INR 1.0 11/24/15 14:10 APTT 25 SECONDS (21-34) 11/24/15 14:10 - Constitutional Appears: Chronically Ill - Eye Exam Eye Exam: Normal appearance, PERRL - ENT Exam ENT Exam: Mucous Membranes Moist - Respiratory Exam Respiratory Exam: Clear to Ausculation Bilateral, NORMAL BREATHING PATTERN - Cardiovascular Exam Cardiovascular Exam: REGULAR RHYTHM, +S1, +S2 - GI/Abdominal Exam GI & Abdominal Exam: Soft, Normal Bowel Sounds. absent: Distended, Firm Additional comments: peg in place. no drainage. clean dressing. - Extremities Exam Extremities Exam: Normal Capillary Refill. absent: Pedal Edema - Neurological Exam Neurological Exam: Alert, Oriented x3 - Psychiatric Exam Psychiatric exam: Normal Affect, Normal Mood - Skin Skin Exam: Normal Color, Warm Assessment and Plan (1) Anoxic encephalopathy Assessment & Plan: No acute change in mental status GCS 8 E4V1M3 patient with trach in place. Patient with PEG tube. Pending placement Status: Acute (2) Respiratory failure Assessment & Plan: Sputum culture 12/06 + psuedomonas: probably colonization. afebrile. normal white count. CXR without infiltrates. No antibiotics for now per Dr. Armstrong tracheostomy with tube change with Dr. Chan on 11/27/15 CXR 12/08--> Tracheostomy tube appears deviated to the left which may be related to patient positioning. Clinical correlation as this does not project over the midline trachea. Bibasilar atelectasis. Mild stable nodularity at the right lung base. (see full report) Cipro started on 11/30 was stopped on 12/08. clean and dry site saturating well on 7L O2 via trach collar No blood tinged secretions noted Bronchial washing grew Pseudomonas ID consult - Dr. Armstrong - help appreciated Status: Acute (3) CAD (coronary artery disease) Assessment & Plan: cardiac stents on 06/13/15. Continue Lisinopril 5mg PO daily Continue Plavix 75mg PO daily Continue ASA 325mg PO daily-currently held due to recent trach bleeding Status: Acute (4) Seizures Assessment & Plan: Continue dilantin 100mg via PEG TID Status: Acute (5) Bed sore Assessment & Plan: Stage II 1.5cm x 3cm sacral ulcer Continue wound care, sensicare and medihoney. Continue repositioning of patient q2H. dolphin mattress. Heel air boots. Status: Acute (6) Prophylactic measure Assessment & Plan: Lovenox 40 SC daily Pepcid 20 mg PO BID [facility] Status: Acute <Donnell Ying M - Last Filed: 12/10/15 16:25> Objective - Vital Signs/Intake and Output Vital Signs (last 24 hours): Temp Pulse Resp BP Pulse Ox 98.2 F 105 H 22 111/60 100 12/10/15 14:00 12/10/15 14:00 12/10/15 14:00 12/10/15 14:00 12/10/15 14:00 Intake and Output: 12/10/15 12/10/15 06:59 18:59 Output Total 425 300 Balance -425 -300 - Medications Medications: Current Medications Aspirin (Aspirin) 325 mg PO DAILY [facility] Last Admin: 11/23/15 09:42 Dose: 325 mg Clopidogrel Bisulfate (Plavix) 75 mg PO DAILY [facility] Last Admin: 12/10/15 11:21 Dose: 75 mg Enoxaparin Sodium (Lovenox) 40 mg SC DAILY [facility] Last Admin: 12/10/15 11:22 Dose: 40 mg Famotidine (Pepcid) 20 mg PO BID [facility] Last Admin: 12/10/15 11:21 Dose: 20 mg Lactobacillus Acidophilus (Bacid Acidophilus) 1 cap PO BID [facility] Last Admin: 12/10/15 11:21 Dose: 1 cap Lisinopril (Zestril) 5 mg PO DAILY [facility] Last Admin: 12/10/15 11:21 Dose: 5 mg Phenytoin (Dilantin) 100 mg PEG TID [facility] Last Admin: 12/10/15 14:04 Dose: 100 mg Polyethylene Glycol (Miralax) 17 gm PEG BID [facility] Last Admin: 08/21/15 11:26 Dose: Not Given - Labs Labs: 12/07/15 07:28 12/07/15 07:28 PT 10.6 SECONDS (9.7-12.2) 11/24/15 14:10 INR 1.0 11/24/15 14:10 APTT 25 SECONDS (21-34) 11/24/15 14:10 Attending/Attestation - Attestation I have personally seen and examined this patient.: Yes I have fully participated in the care of the patient.: Yes I have reviewed all pertinent clinical information, including history, physical exam and plan: Yes Notes (Text): 12/10/15 16:23 Patient seen and examined at bedside with the resident. No change in clinical condition. Positive for sputum culture noted. Possible colonization. No need for antibiotics at this time. Discussed with RN. Sacral wound is healing. Plan for family meeting tomorrow to discuss the disposition of patient.
[2015-12-11 08:05] LABS: BASO # 0.1 K/uL (0.0-0.2); BASO % 0.6 % (0.0-2.0); EOS # 1.9 K/uL (0.0-0.7); EOS % 19.6 % (0.0-4.0); HEMOGLOBIN 11.9 g/dL (12.0-18.0); LYMPH # 1.3 K/uL (1.0-4.3); LYMPH % 13.1 % (20.0-40.0); MEAN CELL VOLUME 94.1 fL (80.0-94.0); MEAN CORPUSCULAR HEMOGLOBIN 30.8 pg (27.0-31.0); MEAN CORPUSCULAR HGB CONC 32.7 g/dL (33.0-37.0); MEAN PLATELET VOLUME 8.5 fL (7.2-11.7); MONO # 0.9 K/uL (0.0-0.8); MONO % 8.6 % (0.0-10.0); NEUT # 5.7 K/uL (1.8-7.0); NEUT % 58.1 % (50.0-75.0); RBC 3.87 Mil/uL (4.40-5.90); RED CELL DISTRIBUTION WIDTH 14.9 % (11.5-14.5); WHITE BLOOD COUNT 9.9 K/uL (4.8-10.8)
[2015-12-11 08:25] LABS: ALBUMIN 3.2 g/dL (3.5-5.0)
[2015-12-11 08:27] LABS: GFR NON-AFRICAN AMERICAN > 60
[2015-12-11 08:28] LABS: ALB/GLOB RATIO 0.8 (1.0-2.1); ALT/SGPT 60 U/L (21-72); AST/SGOT 30 U/L (17-59); BLOOD UREA NITROGEN 20 mg/dL (9-20)
[2015-12-11 08:29] LABS: CALCIUM 8.5 mg/dL (8.4-10.2)
[2015-12-11] MEDS: Enoxaparin 40 mg Syringe SC SCH (10:58)
[2015-12-11] MEDS: Phenytoin 100 mg/4 ml Oral Susp UD PEG SCH ×3 (10:58→18:08)
[2015-12-11] MEDS: Lactobacillus Acidophilus 500 MU Cap PO SCH ×2 (10:59→18:08)
--- NOTE | 2015-12-11 15:36 | CP.PCM.PN ---
<Cedric Bairesen H - Last Filed: 12/11/15 14:57> Subjective - Date & Time of Evaluation Date of Evaluation: 12/11/15 Time of Evaluation: 07:45 - Subjective Subjective: PGY1 Medicine Note - Dr. Demetrice Ying's service: Patient seen and examined at bedside this AM. Patient's eyes open spontaneously. Not responsive to verbal commands. No acute change in mental status. GCS 8: E4V1M3 Objective - Vital Signs/Intake and Output Vital Signs (last 24 hours): Temp Pulse Resp BP Pulse Ox 97.8 F 95 H 20 118/71 98 12/11/15 06:02 12/11/15 06:02 12/11/15 06:02 12/11/15 06:02 12/11/15 06:02 Intake and Output: 12/11/15 12/11/15 06:59 18:59 Output Total 825 Balance -825 - Medications Medications: Current Medications Aspirin (Aspirin) 325 mg PO DAILY [facility] Last Admin: 11/23/15 09:42 Dose: 325 mg Clopidogrel Bisulfate (Plavix) 75 mg PO DAILY [facility] Last Admin: 12/11/15 10:58 Dose: 75 mg Enoxaparin Sodium (Lovenox) 40 mg SC DAILY [facility] Last Admin: 12/11/15 10:58 Dose: 40 mg Famotidine (Pepcid) 20 mg PO BID [facility] Last Admin: 12/11/15 10:58 Dose: 20 mg Lactobacillus Acidophilus (Bacid Acidophilus) 1 cap PO BID [facility] Last Admin: 12/11/15 10:59 Dose: 1 cap Lisinopril (Zestril) 5 mg PO DAILY [facility] Last Admin: 12/11/15 10:58 Dose: 5 mg Phenytoin (Dilantin) 100 mg PEG TID [facility] Last Admin: 12/11/15 14:47 Dose: 100 mg Polyethylene Glycol (Miralax) 17 gm PEG BID [facility] Last Admin: 08/21/15 11:26 Dose: Not Given - Labs Labs: 12/11/15 07:43 12/11/15 07:43 PT 10.6 SECONDS (9.7-12.2) 11/24/15 14:10 INR 1.0 11/24/15 14:10 APTT 25 SECONDS (21-34) 11/24/15 14:10 - Constitutional Appears: Chronically Ill - Head Exam Head Exam: NORMAL INSPECTION - Eye Exam Eye Exam: PERRL - ENT Exam ENT Exam: Mucous Membranes Moist - Respiratory Exam Respiratory Exam: Clear to Ausculation Bilateral, NORMAL BREATHING PATTERN - Cardiovascular Exam Cardiovascular Exam: REGULAR RHYTHM, +S1, +S2 - GI/Abdominal Exam GI & Abdominal Exam: Soft, Normal Bowel Sounds. absent: Tenderness Additional comments: peg in place clean dressing - Extremities Exam Extremities Exam: Normal Capillary Refill. absent: Pedal Edema - Neurological Exam Neurological Exam: Altered - Skin Skin Exam: Normal Color, Warm Assessment and Plan (1) Anoxic encephalopathy Assessment & Plan: No acute change in mental status GCS 8 E4V1M3 patient with trach in place. Patient with PEG tube. Pending placement training family in how to take care of patient Status: Acute (2) Respiratory failure Assessment & Plan: Sputum culture 12/06 + psuedomonas: probably colonization. afebrile. normal white count. CXR without infiltrates. No antibiotics for now per Dr. Armstrong tracheostomy with tube change by Dr. Chan on 11/27/15 CXR 12/08--> Tracheostomy tube appears deviated to the left which may be related to patient positioning. Clinical correlation as this does not project over the midline trachea. Bibasilar atelectasis. Mild stable nodularity at the right lung base. (see full report) Cipro started on 11/30 was stopped on 12/08. clean and dry site saturating well on 7L O2 via trach collar No blood tinged secretions noted Bronchial washing grew Pseudomonas ID consult - Dr. Armstrong - help appreciated Status: Acute (3) CAD (coronary artery disease) Assessment & Plan: cardiac stents on 06/13/15. Continue Lisinopril 5mg PO daily Continue Plavix 75mg PO daily Continue ASA 325mg PO daily-currently held due to recent trach bleeding Status: Acute (4) Seizures Assessment & Plan: Continue dilantin 100mg via PEG TID Status: Acute (5) Bed sore Assessment & Plan: Stage II 1.5cm x 3cm sacral ulcer Continue wound care, sensicare and medihoney. Continue repositioning of patient q2H. dolphin mattress. Heel air boots. Status: Acute (6) Prophylactic measure Assessment & Plan: Lovenox 40 SC daily Pepcid 20 mg PO BID [facility] Status: Acute <Donnell Ying - Last Filed: 12/11/15 15:42> Objective - Vital Signs/Intake and Output Vital Signs (last 24 hours): Temp Pulse Resp BP Pulse Ox 98.0 F 94 H 20 149/88 99 12/11/15 14:00 12/11/15 14:00 12/11/15 14:00 12/11/15 14:00 12/11/15 14:00 Intake and Output: 12/11/15 12/11/15 06:59 18:59 Output Total 825 500 Balance -825 -500 - Medications Medications: Current Medications Aspirin (Aspirin) 325 mg PO DAILY [facility] Last Admin: 11/23/15 09:42 Dose: 325 mg Clopidogrel Bisulfate (Plavix) 75 mg PO DAILY [facility] Last Admin: 12/11/15 10:58 Dose: 75 mg Enoxaparin Sodium (Lovenox) 40 mg SC DAILY [facility] Last Admin: 12/11/15 10:58 Dose: 40 mg Famotidine (Pepcid) 20 mg PO BID [facility] Last Admin: 12/11/15 10:58 Dose: 20 mg Lactobacillus Acidophilus (Bacid Acidophilus) 1 cap PO BID [facility] Last Admin: 12/11/15 10:59 Dose: 1 cap Lisinopril (Zestril) 5 mg PO DAILY [facility] Last Admin: 12/11/15 10:58 Dose: 5 mg Phenytoin (Dilantin) 100 mg PEG TID [facility] Last Admin: 12/11/15 14:47 Dose: 100 mg Polyethylene Glycol (Miralax) 17 gm PEG BID [facility] Last Admin: 08/21/15 11:26 Dose: Not Given - Labs Labs: 12/11/15 07:43 12/11/15 07:43 PT 10.6 SECONDS (9.7-12.2) 11/24/15 14:10 INR 1.0 11/24/15 14:10 APTT 25 SECONDS (21-34) 11/24/15 14:10 Attending/Attestation - Attestation I have personally seen and examined this patient.: Yes I have fully participated in the care of the patient.: Yes I have reviewed all pertinent clinical information, including history, physical exam and plan: Yes Notes (Text): 12/11/15 15:40 Patient seen and examined at bedside with the resident. No change in clinical condition. Discussed with nursing staff. Turn and position the patient every 2 hours. Plan to educate the family about the care of tracheostomy and PEG tube for discharge to home
[2015-12-12] MEDS: Lactobacillus Acidophilus 500 MU Cap PO SCH ×2 (10:47→18:16)
[2015-12-12] MEDS: Enoxaparin 40 mg Syringe SC SCH (10:47)
[2015-12-12] MEDS: Phenytoin 100 mg/4 ml Oral Susp UD PEG SCH ×3 (10:47→18:16)
--- NOTE | 2015-12-12 13:34 | CP.PCM.PN ---
Addendum entered and electronically signed by Judith Baires DO 12/12/15 13: 39: Urine leakage - Urology Consult - Dr. Oropeza - help appreciated Original Note: <Judith Baires - Last Filed: 12/12/15 13:30> Subjective - Date & Time of Evaluation Date of Evaluation: 12/12/15 Time of Evaluation: 07:10 - Subjective Subjective: PGY1 Medicine Note - Dr. Demetrice Ying's service: Patient seen and examined at bedside this AM. Patient's eyes open spontaneously. Not responsive to verbal commands. No acute change in mental status. GCS 8: E4V1M3. Patient on 7L O2 via trach collar. Objective - Vital Signs/Intake and Output Vital Signs (last 24 hours): Temp Pulse Resp BP Pulse Ox 97.5 F L 89 20 153/92 H 100 12/12/15 06:04 12/12/15 06:04 12/12/15 06:04 12/12/15 06:04 12/12/15 06:04 Intake and Output: 12/12/15 12/12/15 06:59 18:59 Intake Total 900 Output Total 100 Balance 800 - Medications Medications: Current Medications Aspirin (Aspirin) 325 mg PO DAILY [facility] Last Admin: 11/23/15 09:42 Dose: 325 mg Clopidogrel Bisulfate (Plavix) 75 mg PO DAILY [facility] Last Admin: 12/12/15 10:47 Dose: 75 mg Enoxaparin Sodium (Lovenox) 40 mg SC DAILY [facility] Last Admin: 12/12/15 10:47 Dose: 40 mg Famotidine (Pepcid) 20 mg PO BID [facility] Last Admin: 12/12/15 10:47 Dose: 20 mg Lactobacillus Acidophilus (Bacid Acidophilus) 1 cap PO BID [facility] Last Admin: 12/12/15 10:47 Dose: 1 cap Lisinopril (Zestril) 5 mg PO DAILY [facility] Last Admin: 12/12/15 10:47 Dose: 5 mg Phenytoin (Dilantin) 100 mg PEG TID [facility] Last Admin: 12/12/15 10:47 Dose: 100 mg Polyethylene Glycol (Miralax) 17 gm PEG BID [facility] Last Admin: 08/21/15 11:26 Dose: Not Given - Labs Labs: 12/11/15 07:43 12/11/15 07:43 PT 10.6 SECONDS (9.7-12.2) 11/24/15 14:10 INR 1.0 11/24/15 14:10 APTT 25 SECONDS (21-34) 11/24/15 14:10 - Constitutional Appears: Chronically Ill - Eye Exam Eye Exam: PERRL. absent: Scleral icterus - ENT Exam ENT Exam: Mucous Membranes Moist - Respiratory Exam Respiratory Exam: Clear to Ausculation Bilateral, NORMAL BREATHING PATTERN - Cardiovascular Exam Cardiovascular Exam: REGULAR RHYTHM, +S1, +S2 - GI/Abdominal Exam GI & Abdominal Exam: Soft, Normal Bowel Sounds. absent: Distended, Firm Additional comments: peg tube in place no drainage, clean dressing - Exam Additional comments: urine leakage around baker catheter - Extremities Exam Extremities Exam: Normal Capillary Refill. absent: Pedal Edema - Back Exam Additional comments: scral decubitus stage II ulcer .[id number] - Neurological Exam Neurological Exam: Altered - Skin Skin Exam: Normal Color, Warm Assessment and Plan (1) Anoxic encephalopathy Assessment & Plan: No acute change in mental status GCS 8 E4V1M3 patient with trach in place. Patient with PEG tube. Pending placement training family in how to take care of patient Status: Acute (2) Respiratory failure Assessment & Plan: Sputum culture 12/06 + psuedomonas: probably colonization. afebrile. normal white count. CXR without infiltrates. No antibiotics for now per Dr. Armstrong tracheostomy with tube change by Dr. Chan on 11/27/15 CXR 12/08--> Tracheostomy tube appears deviated to the left which may be related to patient positioning. Clinical correlation as this does not project over the midline trachea. Bibasilar atelectasis. Mild stable nodularity at the right lung base. (see full report) Cipro started on 11/30 was stopped on 12/08. clean and dry site saturating well on 7L O2 via trach collar No blood tinged secretions noted Bronchial washing grew Pseudomonas ID consult - Dr. Armstrong - help appreciated Status: Acute (3) CAD (coronary artery disease) Assessment & Plan: cardiac stents on 06/13/15. Continue Lisinopril 5mg PO daily Continue Plavix 75mg PO daily Continue ASA 325mg PO daily-currently held due to recent trach bleeding Status: Acute (4) Seizures Assessment & Plan: Continue dilantin 100mg via PEG TID Status: Acute (5) Bed sore Assessment & Plan: Stage II 0.5cm x 2cm sacral ulcer Continue wound care, sensicare and medihoney. Continue repositioning of patient q2H. dolphin mattress. Heel air boots. Status: Acute (6) Prophylactic measure Assessment & Plan: Lovenox 40 SC daily Pepcid 20 mg PO BID [facility] Status: Acute <Donnell Ying - Last Filed: 12/12/15 16:28> Objective - Vital Signs/Intake and Output Vital Signs (last 24 hours): Temp Pulse Resp BP Pulse Ox 98.1 F 93 H 20 117/75 100 12/12/15 14:43 12/12/15 14:43 12/12/15 14:43 12/12/15 14:43 12/12/15 14:43 Intake and Output: 12/12/15 12/12/15 06:59 18:59 Intake Total 900 Output Total 100 Balance 800 - Medications Medications: Current Medications Aspirin (Aspirin) 325 mg PO DAILY [facility] Last Admin: 11/23/15 09:42 Dose: 325 mg Clopidogrel Bisulfate (Plavix) 75 mg PO DAILY [facility] Last Admin: 12/12/15 10:47 Dose: 75 mg Enoxaparin Sodium (Lovenox) 40 mg SC DAILY [facility] Last Admin: 12/12/15 10:47 Dose: 40 mg Famotidine (Pepcid) 20 mg PO BID [facility] Last Admin: 12/12/15 10:47 Dose: 20 mg Lactobacillus Acidophilus (Bacid Acidophilus) 1 cap PO BID [facility] Last Admin: 12/12/15 10:47 Dose: 1 cap Lisinopril (Zestril) 5 mg PO DAILY [facility] Last Admin: 12/12/15 10:47 Dose: 5 mg Phenytoin (Dilantin) 100 mg PEG TID [facility] Last Admin: 12/12/15 14:17 Dose: 100 mg Polyethylene Glycol (Miralax) 17 gm PEG BID [facility] Last Admin: 08/21/15 11:26 Dose: Not Given - Labs Labs: 12/11/15 07:43 12/11/15 07:43 PT 10.6 SECONDS (9.7-12.2) 11/24/15 14:10 INR 1.0 11/24/15 14:10 APTT 25 SECONDS (21-34) 11/24/15 14:10 Attending/Attestation - Attestation I have personally seen and examined this patient.: Yes I have fully participated in the care of the patient.: Yes I have reviewed all pertinent clinical information, including history, physical exam and plan: Yes Notes (Text): 12/12/15 16:27 Patient seen and examined at bedside with the resident today. It was noted that patient has leakage of urine around the Baker's catheter. We will request urology consultation for the patient Continue current management.
--- NOTE | 2015-12-12 15:42 | CP.PCM.PN ---
Subjective - Date & Time of Evaluation Date of Evaluation: 12/12/15 Time of Evaluation: 15:38 - Subjective Subjective: 65 year oriental male admitted in may mI pt is semicomatose and unresponsive no hx avaiblr Gu consulted because of lesking baker. Suggest. Remove baker if posible,after urine C&s confirms no uti.or uti treated If unable to remove baker start pt on Ditropan to decrease bladder spasms. Ute Oropeza Objective - Vital Signs/Intake and Output Vital Signs (last 24 hours): Temp Pulse Resp BP Pulse Ox 98.1 F 93 H 20 117/75 100 12/12/15 14:43 12/12/15 14:43 12/12/15 14:43 12/12/15 14:43 12/12/15 14:43 Intake and Output: 12/12/15 12/12/15 06:59 18:59 Intake Total 900 Output Total 100 Balance 800 - Medications Medications: Current Medications Aspirin (Aspirin) 325 mg PO DAILY [facility] Last Admin: 11/23/15 09:42 Dose: 325 mg Clopidogrel Bisulfate (Plavix) 75 mg PO DAILY [facility] Last Admin: 12/12/15 10:47 Dose: 75 mg Enoxaparin Sodium (Lovenox) 40 mg SC DAILY [facility] Last Admin: 12/12/15 10:47 Dose: 40 mg Famotidine (Pepcid) 20 mg PO BID [facility] Last Admin: 12/12/15 10:47 Dose: 20 mg Lactobacillus Acidophilus (Bacid Acidophilus) 1 cap PO BID [facility] Last Admin: 12/12/15 10:47 Dose: 1 cap Lisinopril (Zestril) 5 mg PO DAILY [facility] Last Admin: 12/12/15 10:47 Dose: 5 mg Phenytoin (Dilantin) 100 mg PEG TID [facility] Last Admin: 12/12/15 14:17 Dose: 100 mg Polyethylene Glycol (Miralax) 17 gm PEG BID [facility] Last Admin: 08/21/15 11:26 Dose: Not Given - Labs Labs: 12/11/15 07:43 12/11/15 07:43 PT 10.6 SECONDS (9.7-12.2) 11/24/15 14:10 INR 1.0 11/24/15 14:10 APTT 25 SECONDS (21-34) 11/24/15 14:10
--- NOTE | 2015-12-13 02:54 | CON ---
DATE: 12/12/2015 CHIEF COMPLAINT: Leaking around the catheter. HISTORY OF PRESENT ILLNESS: The patient has been in the hospital since 06/13/2015 when he suffered a heart attack and since then has been minimally responsive and in semicomatose. The patient recently has developed leaking around his Yoo catheter. The patient was catheterized shortly after admissi on and appears to have had the catheter for the entire time. The actual reason for the catheterizati on is unclear. The patient is not able to give any history. 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 Further history is impossible. REVIEW OF SYSTEMS: RESPIRATORY: The patient has a tracheostomy. GASTROINTESTINAL: There is no available history. GENITOURINARY: There is no available history prior to the patient's admission. ORTHOPEDIC: Noncontributory. SOCIAL HISTORY: Noncontributory. FAMILY HISTORY: Noncontributory. PHYSICAL EXAMINATION: The patient is afebrile. He is comatose in bed. He has a tracheostomy. He d oes not move. He seems minimally responsive to painful stimuli. There is significant atrophy in all extremities. The patient has a Yoo catheter in place. IMPRESSION: Leaking Yoo catheter, probably secondary to bladder spasms. PLAN: I will suggest the following, the patient should have a urine culture and all positive culture should be treated. You may try the patient on Ditropan 5 mg t.i.d. to see if this will decrease his bladder spasms. If this does not stop the leaking around the catheter, I would suggest that the pat ient have his catheter removed and he be observed for urinary retention. Most patients comatose due to brain injury have a spastic bladder with no retention and will spontaneously void once the bladder fills to approximately 150 mL. The patient should be monitored for a large postvoid residual and a diaper should be changed frequently to avoid bedsores. If this strategy fails, the catheter will hav e to be reinserted. Raymundo Oropeza MD cc: [phone] TT: 12/13/2015 02:55:05 an
--- NOTE | 2015-12-13 09:13 | CP.PCM.PN ---
Addendum entered and electronically signed by Judith Baires DO 12/13/15 10: 42: Urine culture and UA collected Ditropan 5mg via PEG TID started Original Note: <Judith Baires - Last Filed: 12/13/15 09:11> Subjective - Date & Time of Evaluation Date of Evaluation: 12/13/15 Time of Evaluation: 06:20 - Subjective Subjective: PGY1 Medicine Note - Dr. Demetrice Ying's service: Patient seen and examined at bedside this AM. Patient's eyes open spontaneously. Not responsive to verbal commands. No acute change in mental status. GCS 8: E4V1M3. Patient on 7L O2 via trach collar. Patient with urine leakage around baker yesterday. Urology consult - Dr. Oropeza - help appreciated. Baker removed. Urine culture and UA ordered. Will order ditrapan 5mg TID pending UA results. Change diapers frequently. Objective - Vital Signs/Intake and Output Vital Signs (last 24 hours): Temp Pulse Resp BP Pulse Ox 97.3 F L 94 H 18 121/81 99 12/13/15 06:11 12/13/15 06:11 12/13/15 06:11 12/13/15 06:11 12/13/15 06:11 Intake and Output: 12/13/15 12/13/15 06:59 18:59 Intake Total 850 Balance 850 - Medications Medications: Current Medications Aspirin (Aspirin) 325 mg PO DAILY [facility] Last Admin: 11/23/15 09:42 Dose: 325 mg Clopidogrel Bisulfate (Plavix) 75 mg PO DAILY [facility] Last Admin: 12/12/15 10:47 Dose: 75 mg Enoxaparin Sodium (Lovenox) 40 mg SC DAILY [facility] Last Admin: 12/12/15 10:47 Dose: 40 mg Famotidine (Pepcid) 20 mg PO BID [facility] Last Admin: 12/12/15 18:16 Dose: 20 mg Lactobacillus Acidophilus (Bacid Acidophilus) 1 cap PO BID [facility] Last Admin: 12/12/15 18:16 Dose: 1 cap Lisinopril (Zestril) 5 mg PO DAILY [facility] Last Admin: 12/12/15 10:47 Dose: 5 mg Phenytoin (Dilantin) 100 mg PEG TID [facility] Last Admin: 12/12/15 18:16 Dose: 100 mg Polyethylene Glycol (Miralax) 17 gm PEG BID [facility] Last Admin: 08/21/15 11:26 Dose: Not Given - Labs Labs: 12/11/15 07:43 12/11/15 07:43 PT 10.6 SECONDS (9.7-12.2) 11/24/15 14:10 INR 1.0 11/24/15 14:10 APTT 25 SECONDS (21-34) 11/24/15 14:10 - Constitutional Appears: Chronically Ill - Eye Exam Eye Exam: PERRL - ENT Exam ENT Exam: Mucous Membranes Moist - Respiratory Exam Respiratory Exam: Clear to Ausculation Bilateral, NORMAL BREATHING PATTERN - Cardiovascular Exam Cardiovascular Exam: REGULAR RHYTHM, +S1, +S2 - GI/Abdominal Exam GI & Abdominal Exam: Guarding, Soft, Normal Bowel Sounds. absent: Distended, Firm, Rigid - Extremities Exam Extremities Exam: Normal Capillary Refill. absent: Pedal Edema - Neurological Exam Neurological Exam: Altered - Skin Skin Exam: Normal Color, Warm Assessment and Plan (1) Urinary leakage Assessment & Plan: Urology consult - Dr. Oropeza - help appreciated F/U UA F/U urine culture start ditrapan 5mg TID pending UA results Change diapers frequently Status: Acute (2) Anoxic encephalopathy Assessment & Plan: PGY1 Medicine Note - Dr. Demetrice Ying's service: Patient seen and examined at bedside this AM. Patient's eyes open spontaneously. Not responsive to verbal commands. No acute change in mental status. GCS 8: E4V1M3. Patient on 7L O2 via trach collar. Status: Acute (3) Respiratory failure Assessment & Plan: Sputum culture 12/06 + psuedomonas: probably colonization. afebrile. normal white count. CXR without infiltrates. No antibiotics for now per Dr. Armstrong tracheostomy with tube change by Dr. Chan on 11/27/15 CXR 12/08--> Tracheostomy tube appears deviated to the left which may be related to patient positioning. Clinical correlation as this does not project over the midline trachea. Bibasilar atelectasis. Mild stable nodularity at the right lung base. (see full report) Cipro started on 11/30 was stopped on 12/08. clean and dry site saturating well on 7L O2 via trach collar No blood tinged secretions noted Bronchial washing grew Pseudomonas ID consult - Dr. Armstrong - help appreciated Status: Acute (4) CAD (coronary artery disease) Assessment & Plan: cardiac stents on 06/13/15. Continue Lisinopril 5mg PO daily Continue Plavix 75mg PO daily Continue ASA 325mg PO daily-currently held due to recent trach bleeding Status: Acute (5) Seizures Assessment & Plan: Continue dilantin 100mg via PEG TID Status: Acute (6) Bed sore Assessment & Plan: Stage II 0.5cm x 2cm sacral ulcer Continue wound care, sensicare and medihoney. Continue repositioning of patient q2H. dolphin mattress. Heel air boots. Status: Acute (7) Prophylactic measure Assessment & Plan: Lovenox 40 SC daily Pepcid 20 mg PO BID [facility] Status: Acute <Donnell Ying - Last Filed: 12/13/15 13:35> Objective - Vital Signs/Intake and Output Vital Signs (last 24 hours): Temp Pulse Resp BP Pulse Ox 97.3 F L 94 H 18 121/81 99 12/13/15 06:11 12/13/15 06:11 12/13/15 06:11 12/13/15 06:11 12/13/15 06:11 Intake and Output: 12/13/15 12/13/15 06:59 18:59 Intake Total 850 Balance 850 - Medications Medications: Current Medications Aspirin (Aspirin) 325 mg PO DAILY [facility] Last Admin: 11/23/15 09:42 Dose: 325 mg Clopidogrel Bisulfate (Plavix) 75 mg PO DAILY [facility] Last Admin: 12/13/15 10:04 Dose: 75 mg Enoxaparin Sodium (Lovenox) 40 mg SC DAILY [facility] Last Admin: 12/13/15 10:04 Dose: 40 mg Famotidine (Pepcid) 20 mg PO BID [facility] Last Admin: 12/13/15 10:04 Dose: 20 mg Lactobacillus Acidophilus (Bacid Acidophilus) 1 cap PO BID [facility] Last Admin: 12/13/15 10:04 Dose: 1 cap Lisinopril (Zestril) 5 mg PO DAILY [facility] Last Admin: 12/13/15 10:05 Dose: 5 mg Oxybutynin Chloride (Ditropan Tab) 5 mg PO TID [facility] Last Admin: 12/13/15 13:29 Dose: 5 mg Phenytoin (Dilantin) 100 mg PEG TID [facility] Last Admin: 12/13/15 13:29 Dose: 100 mg Polyethylene Glycol (Miralax) 17 gm PEG BID [facility] Last Admin: 08/21/15 11:26 Dose: Not Given - Labs Labs: 12/11/15 07:43 12/11/15 07:43 PT 10.6 SECONDS (9.7-12.2) 11/24/15 14:10 INR 1.0 11/24/15 14:10 APTT 25 SECONDS (21-34) 11/24/15 14:10 Attending/Attestation - Attestation I have personally seen and examined this patient.: Yes I have fully participated in the care of the patient.: Yes I have reviewed all pertinent clinical information, including history, physical exam and plan: Yes Notes (Text): 12/13/15 13:33 Patient seen and examined at bedside with the resident. The urology evaluation seen and noted. We will send urine for urinalysis and urine culture. We will reinsert the Baker's catheter to prevent contamination of the sacral wound. We will also add Ditropan as per recommendation of urology. Discussed with nursing staff.
[2015-12-13] MEDS: Enoxaparin 40 mg Syringe SC SCH (10:04)
[2015-12-13] MEDS: Lactobacillus Acidophilus 500 MU Cap PO SCH ×2 (10:04→17:37)
[2015-12-13] MEDS: Phenytoin 100 mg/4 ml Oral Susp UD PEG SCH ×3 (10:04→17:36)
[2015-12-13 13:57] LABS: PH,URINE 8.5 (5.0-8.0); URINE BILIRUBIN NEGATIVE (NEGATIVE); URINE CLARITY Turbid (Clear); URINE COLOR Yellow (YELLOW); URINE GLUCOSE (UA) Normal (Normal); URINE LEUKOCYTE ESTERASE 3+ Leu/uL (Negative); URINE PROTEIN 3+ mg/dL (NEGATIVE); URINE UROBILINOGEN Normal mg/dL (0.2-1.0)
[2015-12-13 14:12] LABS: URINE BACTERIA OCC (<OCC); URINE BLOOD 2+ (NEGATIVE)
[2015-12-14 08:08] LABS: BASO # 0.1 K/uL (0.0-0.2); BASO % 1.1 % (0.0-2.0); EOS # 2.3 K/uL (0.0-0.7); EOS % 22.8 % (0.0-4.0); HEMOGLOBIN 11.3 g/dL (12.0-18.0); LYMPH # 1.4 K/uL (1.0-4.3); MEAN CELL VOLUME 93.7 fL (80.0-94.0); MEAN CORPUSCULAR HEMOGLOBIN 31.1 pg (27.0-31.0); MEAN CORPUSCULAR HGB CONC 33.2 g/dL (33.0-37.0); MEAN PLATELET VOLUME 8.7 fL (7.2-11.7); MONO # 0.8 K/uL (0.0-0.8); MONO % 8.2 % (0.0-10.0); NEUT # 5.4 K/uL (1.8-7.0); NEUT % 53.9 % (50.0-75.0); PLATELET COUNT 323 K/uL (130-400); RBC 3.64 Mil/uL (4.40-5.90); RED CELL DISTRIBUTION WIDTH 14.8 % (11.5-14.5); WHITE BLOOD COUNT 10.1 K/uL (4.8-10.8)
[2015-12-14 08:28] LABS: ALBUMIN 3.3 g/dL (3.5-5.0)
[2015-12-14 08:31] LABS: AST/SGOT 27 U/L (17-59); GFR NON-AFRICAN AMERICAN > 60
[2015-12-14 08:32] LABS: ALB/GLOB RATIO 0.9 (1.0-2.1); ALT/SGPT 49 U/L (21-72); BLOOD UREA NITROGEN 19 mg/dL (9-20); CALCIUM 8.6 mg/dL (8.4-10.2)
--- NOTE | 2015-12-14 09:23 | CP.PCM.PN ---
<ViryJudith Michelle - Last Filed: 12/14/15 10:47> Subjective - Date & Time of Evaluation Date of Evaluation: 12/14/15 Time of Evaluation: 06:20 - Subjective Subjective: PGY1 Medicine Note - Dr. Demetrice Ying's service: Patient seen and examined at bedside this AM. Patient's eyes open spontaneously. Not responsive to verbal commands. No acute change in mental status. GCS 8: E4V1M3. Patient on 7L O2 via trach collar. Objective - Vital Signs/Intake and Output Vital Signs (last 24 hours): Temp Pulse Resp BP Pulse Ox 98.8 F 90 18 116/76 100 12/14/15 05:49 12/14/15 05:49 12/14/15 05:49 12/14/15 05:49 12/14/15 05:49 Intake and Output: 12/14/15 12/14/15 06:59 18:59 Intake Total 900 Output Total 1550 Balance -650 - Medications Medications: Current Medications Aspirin (Aspirin) 325 mg PO DAILY [facility] Last Admin: 11/23/15 09:42 Dose: 325 mg Clopidogrel Bisulfate (Plavix) 75 mg PO DAILY [facility] Last Admin: 12/13/15 10:04 Dose: 75 mg Enoxaparin Sodium (Lovenox) 40 mg SC DAILY [facility] Last Admin: 12/13/15 10:04 Dose: 40 mg Famotidine (Pepcid) 20 mg PO BID [facility] Last Admin: 12/13/15 17:37 Dose: 20 mg Lactobacillus Acidophilus (Bacid Acidophilus) 1 cap PO BID [facility] Last Admin: 12/13/15 17:37 Dose: 1 cap Lisinopril (Zestril) 5 mg PO DAILY [facility] Last Admin: 12/13/15 10:05 Dose: 5 mg Oxybutynin Chloride (Ditropan Tab) 5 mg PO TID [facility] Last Admin: 12/13/15 17:37 Dose: 5 mg Phenytoin (Dilantin) 100 mg PEG TID [facility] Last Admin: 12/13/15 17:36 Dose: 100 mg Polyethylene Glycol (Miralax) 17 gm PEG BID [facility] Last Admin: 08/21/15 11:26 Dose: Not Given - Labs Labs: 12/14/15 07:42 12/14/15 07:42 PT 10.6 SECONDS (9.7-12.2) 11/24/15 14:10 INR 1.0 11/24/15 14:10 APTT 25 SECONDS (21-34) 11/24/15 14:10 - Constitutional Appears: No Acute Distress, Chronically Ill - Head Exam Head Exam: NORMAL INSPECTION - Eye Exam Eye Exam: PERRL. absent: Scleral icterus - ENT Exam ENT Exam: Mucous Membranes Moist - Respiratory Exam Respiratory Exam: Rales, NORMAL BREATHING PATTERN - Cardiovascular Exam Cardiovascular Exam: REGULAR RHYTHM, +S1, +S2 - GI/Abdominal Exam GI & Abdominal Exam: Soft, Normal Bowel Sounds. absent: Distended, Firm Additional comments: peg in place clean dressing - Extremities Exam Extremities Exam: Normal Capillary Refill. absent: Pedal Edema - Neurological Exam Neurological Exam: Altered - Skin Skin Exam: Warm. absent: Intact Assessment and Plan (1) Urinary tract infection Assessment & Plan: Urology consult - Dr. Johnna stoner appreciated UA + Urine culture + for gram negative rods, F/U sensitivities ID on board - Dr. Armstrong - herbie apreciated - F/U Dr. Armstrong's recommendations Status: Acute (2) Urinary leakage Assessment & Plan: Urology consult - Dr. Johnna stoner appreciated UA + Urine culture + for gram negative rods, F/U sensitivities ditrapan 5mg TID Yoo catheter Status: Acute (3) Anoxic encephalopathy Assessment & Plan: No acute change in mental status GCS 8 E4V1M3 patient with trach in place. Patient with PEG tube. Pending placement training family in how to take care of patient Status: Acute (4) Respiratory failure Assessment & Plan: Sputum culture 12/06 + psuedomonas: probably colonization. afebrile. normal white count. CXR without infiltrates. No antibiotics for now per Dr. Armstrong tracheostomy with tube change by Dr. Chan on 11/27/15 CXR 12/08--> Tracheostomy tube appears deviated to the left which may be related to patient positioning. Clinical correlation as this does not project over the midline trachea. Bibasilar atelectasis. Mild stable nodularity at the right lung base. (see full report) Cipro started on 11/30 was stopped on 12/08. clean and dry site saturating well on 7L O2 via trach collar No blood tinged secretions noted Bronchial washing grew Pseudomonas ID consult - Dr. Patti - help appreciated Status: Acute (5) CAD (coronary artery disease) Assessment & Plan: cardiac stents on 06/13/15. Continue Lisinopril 5mg PO daily Continue Plavix 75mg PO daily Continue ASA 325mg PO daily-currently held due to recent trach bleeding Status: Acute (6) Seizures Assessment & Plan: Continue dilantin 100mg via PEG TID F/U dilantin level Status: Acute (7) Bed sore Assessment & Plan: Stage II 0.5cm x 2cm sacral ulcer Continue wound care, sensicare and medihoney. Continue repositioning of patient q2H. dolphin mattress. Heel air boots. Status: Acute (8) Prophylactic measure Assessment & Plan: Lovenox 40 SC daily Pepcid 20 mg PO BID [facility] Status: Acute <Donnell Ying - Last Filed: 12/14/15 15:05> Objective - Vital Signs/Intake and Output Vital Signs (last 24 hours): Temp Pulse Resp BP Pulse Ox 98.4 F 100 H 20 125/76 100 12/14/15 14:00 12/14/15 14:00 12/14/15 14:00 12/14/15 14:00 12/14/15 14:00 Intake and Output: 12/14/15 12/14/15 06:59 18:59 Intake Total 900 Output Total 1550 475 Balance -650 -475 - Medications Medications: Current Medications Aspirin (Aspirin) 325 mg PO DAILY [facility] Last Admin: 11/23/15 09:42 Dose: 325 mg Clopidogrel Bisulfate (Plavix) 75 mg PO DAILY [facility] Last Admin: 12/14/15 10:56 Dose: 75 mg Enoxaparin Sodium (Lovenox) 40 mg SC DAILY [facility] Last Admin: 12/14/15 10:56 Dose: 40 mg Famotidine (Pepcid) 20 mg PO BID [facility] Last Admin: 12/14/15 10:56 Dose: 20 mg Cefepime HCl 1 gm/ Dextrose 50 mls @ 100 mls/hr IVPB Q12H [facility] Lactobacillus Acidophilus (Bacid Acidophilus) 1 cap PO BID [facility] Last Admin: 12/14/15 10:56 Dose: 1 cap Lisinopril (Zestril) 5 mg PO DAILY [facility] Last Admin: 12/14/15 10:56 Dose: 5 mg Oxybutynin Chloride (Ditropan Tab) 5 mg PO TID [facility] Last Admin: 12/14/15 14:38 Dose: 5 mg Phenytoin (Dilantin) 100 mg PEG TID [facility] Last Admin: 12/14/15 14:37 Dose: 100 mg Polyethylene Glycol (Miralax) 17 gm PEG BID [facility] Last Admin: 08/21/15 11:26 Dose: Not Given - Labs Labs: 12/14/15 07:42 12/14/15 07:42 PT 10.6 SECONDS (9.7-12.2) 11/24/15 14:10 INR 1.0 11/24/15 14:10 APTT 25 SECONDS (21-34) 11/24/15 14:10 Attending/Attestation - Attestation I have personally seen and examined this patient.: Yes I have fully participated in the care of the patient.: Yes I have reviewed all pertinent clinical information, including history, physical exam and plan: Yes Notes (Text): 12/14/15 15:04 Patient seen and examined at bedside with the resident. Yoo's catheter was inserted daily yesterday. No leakage of urine noted around the Yoo's catheter. Urine culture report noted. Patient started on cefepime as per recommendation of ID. Continue care of tracheostomy. Frequent turning and positioning of the patient.
[2015-12-14 10:42] LABS: EOSINOPHIL 25 % (0-4); LYMPHOCYTE 10 % (20-40); MONOCYTE 5 % (0-10); NEUTROPHIL 60 % (50-75); PLATELET ESTIMATE NORMAL (NORMAL); TOTAL CELLS COUNTED 100
[2015-12-14] MEDS: Enoxaparin 40 mg Syringe SC SCH (10:56)
[2015-12-14] MEDS: Phenytoin 100 mg/4 ml Oral Susp UD PEG SCH ×3 (10:56→17:24)
[2015-12-14] MEDS: Lactobacillus Acidophilus 500 MU Cap PO SCH ×2 (10:56→17:24)
--- NOTE | 2015-12-15 00:40 | CP.PCM.PN ---
<Sandra Mercedes - Last Filed: 12/15/15 00:36> Subjective - Date & Time of Evaluation Date of Evaluation: 12/15/15 Time of Evaluation: 00:20 - Subjective Subjective: Medicine Note Pt seen and examined. Pt is on vent via trach and continues to be altered and unresponsive to verbal stimuli. Unable to obtain ROS. No blood via trach suctioning. Yoo in place. Objective - Vital Signs/Intake and Output Vital Signs (last 24 hours): Temp Pulse Resp BP Pulse Ox 98.2 F 98 H 18 115/78 100 12/14/15 21:40 12/14/15 21:40 12/14/15 21:40 12/14/15 21:40 12/14/15 21:40 Intake and Output: 12/14/15 12/15/15 18:59 06:59 Intake Total 970 Output Total 475 800 Balance -475 170 - Medications Medications: Current Medications Aspirin (Aspirin) 325 mg PO DAILY [facility] Last Admin: 11/23/15 09:42 Dose: 325 mg Clopidogrel Bisulfate (Plavix) 75 mg PO DAILY [facility] Last Admin: 12/14/15 10:56 Dose: 75 mg Enoxaparin Sodium (Lovenox) 40 mg SC DAILY [facility] Last Admin: 12/14/15 10:56 Dose: 40 mg Famotidine (Pepcid) 20 mg PO BID [facility] Last Admin: 12/14/15 17:24 Dose: 20 mg Cefepime HCl 1 gm/ Dextrose 50 mls @ 100 mls/hr IVPB Q12H [facility] Last Admin: 12/14/15 17:24 Dose: 100 mls/hr Lactobacillus Acidophilus (Bacid Acidophilus) 1 cap PO BID [facility] Last Admin: 12/14/15 17:24 Dose: 1 cap Lisinopril (Zestril) 5 mg PO DAILY [facility] Last Admin: 12/14/15 10:56 Dose: 5 mg Oxybutynin Chloride (Ditropan Tab) 5 mg PO TID [facility] Last Admin: 12/14/15 17:24 Dose: 5 mg Phenytoin (Dilantin) 100 mg PEG TID [facility] Last Admin: 12/14/15 17:24 Dose: 100 mg Polyethylene Glycol (Miralax) 17 gm PEG BID [facility] Last Admin: 08/21/15 11:26 Dose: Not Given - Labs Labs: 12/14/15 07:42 12/14/15 07:42 PT 10.6 SECONDS (9.7-12.2) 11/24/15 14:10 INR 1.0 11/24/15 14:10 APTT 25 SECONDS (21-34) 11/24/15 14:10 - Constitutional Appears: Chronically Ill - Head Exam Head Exam: NORMAL INSPECTION - Eye Exam Eye Exam: PERRL - ENT Exam ENT Exam: Mucous Membranes Moist - Respiratory Exam Respiratory Exam: Rales, NORMAL BREATHING PATTERN - Cardiovascular Exam Cardiovascular Exam: REGULAR RHYTHM, +S1, +S2 - GI/Abdominal Exam GI & Abdominal Exam: Soft, Normal Bowel Sounds Additional comments: peg in place - Neurological Exam Neurological Exam: Altered - Skin Skin Exam: Warm Additional comments: Skin ulcer on back Assessment and Plan - Assessment and Plan (Free Text) Assessment: Assessment and Plan (1) Urinary tract infection Assessment & Plan: Urine culture + for gram negative rods, F/U sensitivities Urology consult - Dr. Oropeza - herbie appreciated ID on board - Dr. Armstrong - herbie apreciated - F/U Dr. Armstrong's recommendations Status: Acute (2) Urinary leakage Assessment & Plan: Continue Ditropan 5mg TID Urology consult - Dr. Oropeza - herbie appreciated UA + Urine culture + for gram negative rods, F/U sensitivities Yoo catheter in place Status: Acute (3) Anoxic encephalopathy Assessment & Plan: No acute change in mental status GCS 8 E4V1M3 patient with trach in place. Patient with PEG tube. Pending placement training family in how to take care of patient Status: Acute (4) Respiratory failure Assessment & Plan: Sputum culture 12/06 + psuedomonas: probably colonization. afebrile. normal white count. CXR without infiltrates. No antibiotics for now per Dr. Armstrong tracheostomy with tube change by Dr. Chan on 11/27/15 CXR 12/08--> Tracheostomy tube appears deviated to the left which may be related to patient positioning. Clinical correlation as this does not project over the midline trachea. Bibasilar atelectasis. Mild stable nodularity at the right lung base. (see full report) Cipro started on 11/30 was stopped on 12/08. clean and dry site saturating well on 7L O2 via trach collar No blood tinged secretions noted Bronchial washing grew Pseudomonas ID consult - Dr. Armstrong - help appreciated Status: Acute (5) CAD (coronary artery disease) Assessment & Plan: cardiac stents on 06/13/15. Continue Lisinopril 5mg PO daily Continue Plavix 75mg PO daily Continue ASA 325mg PO daily-currently held due to recent trach bleeding Status: Acute (6) Seizures Assessment & Plan: Continue dilantin 100mg via PEG TID F/U dilantin level Status: Acute (7) Bed sore Assessment & Plan: Stage II 0.5cm x 2cm sacral ulcer Continue wound care, sensicare and medihoney. Continue repositioning of patient q2H. dolphin mattress. Heel air boots. Status: Acute (8) Prophylactic measure Assessment & Plan: Lovenox 40 SC daily Pepcid 20 mg PO BID [facility] Status: Acute <Donnell Ying - Last Filed: 12/15/15 14:12> Objective - Vital Signs/Intake and Output Vital Signs (last 24 hours): Temp Pulse Resp BP Pulse Ox 97.7 F 84 20 117/77 99 12/15/15 14:03 12/15/15 14:03 12/15/15 14:03 12/15/15 14:03 12/15/15 14:03 Intake and Output: 12/15/15 12/15/15 06:59 18:59 Intake Total 1870 Output Total 1100 Balance 770 - Medications Medications: Current Medications Aspirin (Aspirin) 325 mg PO DAILY [facility] Last Admin: 11/23/15 09:42 Dose: 325 mg Clopidogrel Bisulfate (Plavix) 75 mg PO DAILY [facility] Last Admin: 12/15/15 10:16 Dose: 75 mg Enoxaparin Sodium (Lovenox) 40 mg SC DAILY [facility] Last Admin: 12/15/15 10:17 Dose: 40 mg Famotidine (Pepcid) 20 mg PO BID [facility] Last Admin: 12/15/15 10:17 Dose: 20 mg Cefepime HCl 1 gm/ Dextrose 50 mls @ 100 mls/hr IVPB Q12H [facility] Last Admin: 12/15/15 08:18 Dose: 100 mls/hr Lactobacillus Acidophilus (Bacid Acidophilus) 1 cap PO BID [facility] Last Admin: 12/15/15 10:16 Dose: 1 cap Lisinopril (Zestril) 5 mg PO DAILY [facility] Last Admin: 12/15/15 10:16 Dose: 5 mg Oxybutynin Chloride (Ditropan Tab) 5 mg PO TID [facility] Last Admin: 12/15/15 13:28 Dose: 5 mg Phenytoin (Dilantin) 100 mg PEG TID [facility] Last Admin: 12/15/15 13:27 Dose: 100 mg Polyethylene Glycol (Miralax) 17 gm PEG BID [facility] Last Admin: 08/21/15 11:26 Dose: Not Given - Labs Labs: 12/14/15 07:42 12/14/15 07:42 PT 10.6 SECONDS (9.7-12.2) 11/24/15 14:10 INR 1.0 11/24/15 14:10 APTT 25 SECONDS (21-34) 11/24/15 14:10 Attending/Attestation - Attestation I have personally seen and examined this patient.: Yes I have fully participated in the care of the patient.: Yes I have reviewed all pertinent clinical information, including history, physical exam and plan: Yes Notes (Text): 12/15/15 14:05 Patient seen and examined at bedside with the resident. No change in clinical condition. Yoo's catheter in place and no urine leak at this time. Continue IV antibiotics for UTI.
[2015-12-15] MEDS: Lactobacillus Acidophilus 500 MU Cap PO SCH ×2 (10:16→17:50)
[2015-12-15] MEDS: Phenytoin 100 mg/4 ml Oral Susp UD PEG SCH ×3 (10:16→17:50)
[2015-12-15] MEDS: Enoxaparin 40 mg Syringe SC SCH (10:17)
--- NOTE | 2015-12-16 06:01 | CP.PCM.PN ---
<Sandra Mercedes - Last Filed: 12/16/15 07:19> Subjective - Date & Time of Evaluation Date of Evaluation: 12/16/15 Time of Evaluation: 06:20 - Subjective Subjective: Medicine Note Pt seen and examined. Pt is on vent via trach and has PEG in place. Unable to obtain ROS. No blood seen in secretions. Yoo in place. No acute events as per nursing. Urine cx positive for Proteus. Objective - Vital Signs/Intake and Output Vital Signs (last 24 hours): Temp Pulse Resp BP Pulse Ox 98.1 F 92 H 20 109/72 97 12/15/15 19:00 12/15/15 19:00 12/15/15 19:00 12/15/15 19:00 12/15/15 19:00 Intake and Output: 12/15/15 12/16/15 18:59 06:59 Intake Total 1150 Output Total 600 600 Balance 550 -600 - Medications Medications: Current Medications Aspirin (Aspirin) 325 mg PO DAILY [facility] Last Admin: 11/23/15 09:42 Dose: 325 mg Clopidogrel Bisulfate (Plavix) 75 mg PO DAILY [facility] Last Admin: 12/15/15 10:16 Dose: 75 mg Enoxaparin Sodium (Lovenox) 40 mg SC DAILY [facility] Last Admin: 12/15/15 10:17 Dose: 40 mg Famotidine (Pepcid) 20 mg PO BID [facility] Last Admin: 12/15/15 17:50 Dose: 20 mg Cefepime HCl 1 gm/ Dextrose 50 mls @ 100 mls/hr IVPB Q12H [facility] Last Admin: 12/16/15 02:22 Dose: 100 mls/hr Lactobacillus Acidophilus (Bacid Acidophilus) 1 cap PO BID [facility] Last Admin: 12/15/15 17:50 Dose: 1 cap Lisinopril (Zestril) 5 mg PO DAILY [facility] Last Admin: 12/15/15 10:16 Dose: 5 mg Oxybutynin Chloride (Ditropan Tab) 5 mg PO TID [facility] Last Admin: 12/15/15 17:50 Dose: 5 mg Phenytoin (Dilantin) 100 mg PEG TID [facility] Last Admin: 12/15/15 17:50 Dose: 100 mg Polyethylene Glycol (Miralax) 17 gm PEG BID [facility] Last Admin: 08/21/15 11:26 Dose: Not Given - Labs Labs: 12/14/15 07:42 12/14/15 07:42 PT 10.6 SECONDS (9.7-12.2) 11/24/15 14:10 INR 1.0 11/24/15 14:10 APTT 25 SECONDS (21-34) 11/24/15 14:10 - Constitutional Appears: Non-toxic, No Acute Distress - Head Exam Head Exam: NORMAL INSPECTION, NORMOCEPHALIC - Eye Exam Eye Exam: Normal appearance - ENT Exam ENT Exam: Mucous Membranes Moist - Respiratory Exam Respiratory Exam: Clear to Ausculation Bilateral, NORMAL BREATHING PATTERN - Cardiovascular Exam Cardiovascular Exam: REGULAR RHYTHM, +S1, +S2 - GI/Abdominal Exam GI & Abdominal Exam: Soft, Normal Bowel Sounds - Neurological Exam Neurological Exam: Alert, Awake, Oriented x3 - Skin Skin Exam: Dry, Normal Color Assessment and Plan - Assessment and Plan (Free Text) Assessment: Assessment and Plan (1) Urinary tract infection Assessment & Plan: Urine culture + for Proteus Urology consult - Dr. Oropeza - herbie appreciated ID on board - Dr. Armstrong - help apreciated - F/U Dr. Armstrong's recommendations Status: Acute (2) Urinary leakage Assessment & Plan: Continue Ditropan 5mg TID Urology consult - Dr. Oropeza - herbie appreciated UA + Urine culture + for Proteus Yoo catheter in place Status: Acute (3) Anoxic encephalopathy Assessment & Plan: No acute change in mental status GCS 8 E4V1M3 patient with trach in place. Patient with PEG tube. Pending placement training family in how to take care of patient Status: Acute (4) Respiratory failure Assessment & Plan: Sputum culture 12/06 + psuedomonas: probably colonization. afebrile. normal white count. CXR without infiltrates. No antibiotics for now per Dr. Armstrong tracheostomy with tube change by Dr. Chan on 11/27/15 CXR 12/08--> Tracheostomy tube appears deviated to the left which may be related to patient positioning. Clinical correlation as this does not project over the midline trachea. Bibasilar atelectasis. Mild stable nodularity at the right lung base. (see full report) Cipro started on 11/30 was stopped on 12/08. clean and dry site saturating well on 7L O2 via trach collar No blood tinged secretions noted Bronchial washing grew Pseudomonas ID consult - Dr. Armstrong - help appreciated Status: Acute (5) CAD (coronary artery disease) Assessment & Plan: cardiac stents on 06/13/15. Continue Lisinopril 5mg PO daily Continue Plavix 75mg PO daily Continue ASA 325mg PO daily-currently held due to recent trach bleeding Status: Acute (6) Seizures Assessment & Plan: Continue dilantin 100mg via PEG TID F/U dilantin level Status: Acute (7) Bed sore Assessment & Plan: Stage II 0.5cm x 2cm sacral ulcer Continue wound care, sensicare and medihoney. Continue repositioning of patient q2H. dolphin mattress. Heel air boots. Status: Acute (8) Prophylactic measure Assessment & Plan: Lovenox 40 SC daily Pepcid 20 mg PO BID [facility] Status: Acute <StepanDonnell M - Last Filed: 12/16/15 12:47> Objective - Vital Signs/Intake and Output Vital Signs (last 24 hours): Temp Pulse Resp BP Pulse Ox 98.0 F 95 H 18 128/76 98 12/16/15 06:08 12/16/15 06:08 12/16/15 06:08 12/16/15 06:08 12/16/15 06:08 Intake and Output: 12/16/15 12/16/15 06:59 18:59 Output Total 1000 Balance -1000 - Medications Medications: Current Medications Aspirin (Aspirin) 325 mg PO DAILY [facility] Last Admin: 11/23/15 09:42 Dose: 325 mg Clopidogrel Bisulfate (Plavix) 75 mg PO DAILY [facility] Last Admin: 12/16/15 09:57 Dose: 75 mg Enoxaparin Sodium (Lovenox) 40 mg SC DAILY [facility] Last Admin: 12/16/15 09:58 Dose: 40 mg Famotidine (Pepcid) 20 mg PO BID [facility] Last Admin: 12/16/15 09:57 Dose: 20 mg Cefepime HCl 1 gm/ Dextrose 50 mls @ 100 mls/hr IVPB Q12H [facility] Last Admin: 12/16/15 02:22 Dose: 100 mls/hr Lactobacillus Acidophilus (Bacid Acidophilus) 1 cap PO BID [facility] Last Admin: 12/16/15 09:57 Dose: 1 cap Lisinopril (Zestril) 5 mg PO DAILY [facility] Last Admin: 12/16/15 09:56 Dose: 5 mg Oxybutynin Chloride (Ditropan Tab) 5 mg PO TID [facility] Last Admin: 12/16/15 09:57 Dose: 5 mg Phenytoin (Dilantin) 100 mg PEG TID [facility] Last Admin: 12/16/15 09:56 Dose: 100 mg Polyethylene Glycol (Miralax) 17 gm PEG BID [facility] Last Admin: 08/21/15 11:26 Dose: Not Given - Labs Labs: 12/14/15 07:42 12/14/15 07:42 PT 10.6 SECONDS (9.7-12.2) 11/24/15 14:10 INR 1.0 11/24/15 14:10 APTT 25 SECONDS (21-34) 11/24/15 14:10 Attending/Attestation - Attestation I have personally seen and examined this patient.: Yes I have fully participated in the care of the patient.: Yes I have reviewed all pertinent clinical information, including history, physical exam and plan: Yes Notes (Text): 12/16/15 12:47 Patient seen and examined at bedside. No change in clinical condition. Yoo's catheter in place. No leakage noted around for his catheter. Continue current management. Continue care of decubitus ulcer. Turn and position every 2 hours.
[2015-12-16] MEDS: Phenytoin 100 mg/4 ml Oral Susp UD PEG SCH ×3 (09:56→17:42)
[2015-12-16] MEDS: Lactobacillus Acidophilus 500 MU Cap PO SCH ×2 (09:57→17:42)
[2015-12-16] MEDS: Enoxaparin 40 mg Syringe SC SCH (09:58)
[2015-12-17] MEDS: Enoxaparin 40 mg Syringe SC SCH (10:46)
[2015-12-17] MEDS: Phenytoin 100 mg/4 ml Oral Susp UD PEG SCH ×3 (10:46→17:29)
[2015-12-17] MEDS: Piperacill/Tazo 3.375gm in Dex 50 ML IVPB SCH ×2 (12:18→17:31)
--- NOTE | 2015-12-17 13:55 | CP.PCM.PN ---
<Cedric Bairesen H - Last Filed: 12/17/15 13:51> Subjective - Date & Time of Evaluation Date of Evaluation: 12/17/15 Time of Evaluation: 08:55 - Subjective Subjective: PGY1 Medicine Note - Dr. Piper Rodrigues's Service: Patient seen and examined at bedside this AM. Patient is on 6L O2 via trach and has PEG in place. Patient's eyes open spontaneously. Not responsive to verbal commands. No acute change in mental status. GCS 8: E4V1M3. Unable to obtain ROS. No blood seen in secretions. Baker in place. No acute events as per nursing. Objective - Vital Signs/Intake and Output Vital Signs (last 24 hours): Temp Pulse Resp BP Pulse Ox 98.9 F 98 H 20 121/74 99 12/17/15 06:13 12/17/15 06:13 12/17/15 06:13 12/17/15 06:13 12/17/15 06:13 Intake and Output: 12/17/15 12/17/15 06:59 18:59 Intake Total 1010 Output Total 1200 Balance -190 - Medications Medications: Current Medications Aspirin (Aspirin) 325 mg PO DAILY [facility] Last Admin: 11/23/15 09:42 Dose: 325 mg Clopidogrel Bisulfate (Plavix) 75 mg PO DAILY [facility] Last Admin: 12/17/15 10:47 Dose: 75 mg Enoxaparin Sodium (Lovenox) 40 mg SC DAILY [facility] Last Admin: 12/17/15 10:46 Dose: 40 mg Famotidine (Pepcid) 20 mg PO BID [facility] Last Admin: 12/17/15 10:47 Dose: 20 mg Piperacillin Sod/Tazobactam Sod (Zosyn 3.375 Gm Iv Premix) 50 mls @ 100 mls/hr IVPB Q6H [facility] Last Admin: 12/17/15 12:18 Dose: 100 mls/hr Lisinopril (Zestril) 5 mg PO DAILY [facility] Last Admin: 12/17/15 10:46 Dose: 5 mg Oxybutynin Chloride (Ditropan Tab) 5 mg PO TID [facility] Last Admin: 12/17/15 10:47 Dose: 5 mg Phenytoin (Dilantin) 100 mg PEG TID [facility] Last Admin: 12/17/15 10:46 Dose: 100 mg Polyethylene Glycol (Miralax) 17 gm PEG BID [facility] Last Admin: 08/21/15 11:26 Dose: Not Given - Labs Labs: 12/14/15 07:42 12/14/15 07:42 PT 10.6 SECONDS (9.7-12.2) 11/24/15 14:10 INR 1.0 11/24/15 14:10 APTT 25 SECONDS (21-34) 11/24/15 14:10 - Constitutional Appears: No Acute Distress, Chronically Ill - Head Exam Head Exam: NORMAL INSPECTION - Eye Exam Eye Exam: PERRL. absent: Scleral icterus - ENT Exam ENT Exam: Mucous Membranes Moist - Respiratory Exam Respiratory Exam: Clear to Ausculation Bilateral, NORMAL BREATHING PATTERN - Cardiovascular Exam Cardiovascular Exam: REGULAR RHYTHM, +S1, +S2 - GI/Abdominal Exam GI & Abdominal Exam: Soft, Normal Bowel Sounds. absent: Distended, Firm Additional comments: peg in place clean dressing - Exam Additional comments: baker in place - Extremities Exam Extremities Exam: Normal Capillary Refill. absent: Pedal Edema - Neurological Exam Neurological Exam: Altered - Skin Skin Exam: Normal Color, Warm Assessment and Plan (1) Urinary tract infection Assessment & Plan: Urine culture + for Proteus Sensitive to zosyn Start Zosyn 3.375gm IVPB Q6H x7 days Get urine culture on Thursday (12/19/15) Urology consult - Dr. Oropeza - herbie appreciated ID on board - Dr. Armstrong - help apreciated Status: Acute (2) Urinary leakage Assessment & Plan: Continue Ditropan 5mg TID Urology consult - Dr. Oropeza - herbie appreciated UA + Urine culture + for Proteus Baker catheter in place Status: Resolved (3) Anoxic encephalopathy Assessment & Plan: No acute change in mental status GCS 8 E4V1M3 patient with trach in place. Patient with PEG tube. Pending placement training family in how to take care of patient Status: Acute (4) Respiratory failure Assessment & Plan: Sputum culture 12/06 + psuedomonas: probably colonization. afebrile. normal white count. CXR without infiltrates. No antibiotics for now per Dr. Armstrong tracheostomy with tube change by Dr. Chan on 11/27/15 CXR 12/08--> Tracheostomy tube appears deviated to the left which may be related to patient positioning. Clinical correlation as this does not project over the midline trachea. Bibasilar atelectasis. Mild stable nodularity at the right lung base. (see full report) Cipro started on 11/30 was stopped on 12/08. clean and dry site saturating well on 7L O2 via trach collar No blood tinged secretions noted Bronchial washing grew Pseudomonas ID consult - Dr. Armstrong - help appreciated Working on getting portable suctioning for family to practice Status: Acute (5) CAD (coronary artery disease) Assessment & Plan: cardiac stents on 06/13/15. Continue Lisinopril 5mg PO daily Continue Plavix 75mg PO daily Continue ASA 325mg PO daily-currently held due to recent trach bleeding Status: Acute (6) Seizures Assessment & Plan: Continue dilantin 100mg via PEG TID Status: Acute (7) Bed sore Assessment & Plan: Stage II 0.5cm x 2cm sacral ulcer Continue wound care, sensicare and medihoney. Continue repositioning of patient q2H. dolphin mattress. Heel air boots. Status: Acute (8) Prophylactic measure Assessment & Plan: Lovenox 40 SC daily Pepcid 20 mg PO BID SCDs Status: Acute <Rashel Rodrigues - Last Filed: 12/17/15 16:09> Objective - Vital Signs/Intake and Output Vital Signs (last 24 hours): Temp Pulse Resp BP Pulse Ox 98.7 F 100 H 22 110/67 99 12/17/15 14:00 12/17/15 14:00 12/17/15 14:00 12/17/15 14:00 12/17/15 14:00 Intake and Output: 12/17/15 12/17/15 06:59 18:59 Intake Total 1010 100 Output Total 1200 700 Balance -190 -600 - Medications Medications: Current Medications Aspirin (Aspirin) 325 mg PO DAILY [facility] Last Admin: 11/23/15 09:42 Dose: 325 mg Clopidogrel Bisulfate (Plavix) 75 mg PO DAILY [facility] Last Admin: 12/17/15 10:47 Dose: 75 mg Enoxaparin Sodium (Lovenox) 40 mg SC DAILY [facility] Last Admin: 12/17/15 10:46 Dose: 40 mg Famotidine (Pepcid) 20 mg PO BID [facility] Last Admin: 12/17/15 10:47 Dose: 20 mg Piperacillin Sod/Tazobactam Sod (Zosyn 3.375 Gm Iv Premix) 50 mls @ 100 mls/hr IVPB Q6H [facility] Last Admin: 12/17/15 12:18 Dose: 100 mls/hr Lisinopril (Zestril) 5 mg PO DAILY [facility] Last Admin: 12/17/15 10:46 Dose: 5 mg Oxybutynin Chloride (Ditropan Tab) 5 mg PO TID [facility] Last Admin: 12/17/15 14:52 Dose: 5 mg Phenytoin (Dilantin) 100 mg PEG TID [facility] Last Admin: 12/17/15 14:52 Dose: 100 mg Polyethylene Glycol (Miralax) 17 gm PEG BID [facility] Last Admin: 08/21/15 11:26 Dose: Not Given - Labs Labs: 12/14/15 07:42 12/14/15 07:42 PT 10.6 SECONDS (9.7-12.2) 11/24/15 14:10 INR 1.0 11/24/15 14:10 APTT 25 SECONDS (21-34) 11/24/15 14:10 Assessment and Plan (1) Anoxic encephalopathy Status: Acute (2) STEMI (ST elevation myocardial infarction) Status: Acute (3) Respiratory failure Status: Acute (4) Seizures Status: Acute (5) Prophylactic measure Status: Acute (6) Bed sore Status: Acute Attending/Attestation - Attestation I have personally seen and examined this patient.: Yes I have fully participated in the care of the patient.: Yes I have reviewed all pertinent clinical information, including history, physical exam and plan: Yes Notes (Text): 12/17/15 16:07 Patient was seen and examined during the round with resident. pt condition remains the same. No fever, no resp distress, tolerating PEG tube feeding. family are still getting training for feeding and trach carefor poss dc home soon.
[2015-12-18] MEDS: Piperacill/Tazo 3.375gm in Dex 50 ML IVPB SCH ×5 (05:30→23:25)
[2015-12-18 07:35] LABS: BASO % 0.3 % (0.0-2.0); EOS # 3.3 K/uL (0.0-0.7); EOS % 25.4 % (0.0-4.0); HEMOGLOBIN 11.8 g/dL (12.0-18.0); LYMPH # 1.2 K/uL (1.0-4.3); LYMPH % 9.7 % (20.0-40.0); MEAN CELL VOLUME 93.3 fL (80.0-94.0); MEAN CORPUSCULAR HEMOGLOBIN 30.8 pg (27.0-31.0); MEAN PLATELET VOLUME 8.7 fL (7.2-11.7); MONO # 1.3 K/uL (0.0-0.8); NEUT % 54.6 % (50.0-75.0); PLATELET COUNT 294 K/uL (130-400); RBC 3.82 Mil/uL (4.40-5.90); RED CELL DISTRIBUTION WIDTH 14.7 % (11.5-14.5); WHITE BLOOD COUNT 12.8 K/uL (4.8-10.8)
[2015-12-18 07:50] LABS: ALBUMIN 3.3 g/dL (3.5-5.0)
[2015-12-18 07:53] LABS: ALB/GLOB RATIO 0.9 (1.0-2.1); ALT/SGPT 56 U/L (21-72); AST/SGOT 33 U/L (17-59); BLOOD UREA NITROGEN 21 mg/dL (9-20); GFR NON-AFRICAN AMERICAN > 60
[2015-12-18 07:54] LABS: CALCIUM 8.6 mg/dL (8.4-10.2)
[2015-12-18 09:33] LABS: BASOPHIL 1 % (0-2); EOSINOPHIL 22 % (0-4); LYMPHOCYTE 10 % (20-40); MONOCYTE 4 % (0-10); NEUTROPHIL 63 % (50-75); PLATELET ESTIMATE NORMAL (NORMAL); TOTAL CELLS COUNTED 100
[2015-12-18 09:35] LABS: ANISOCYTOSIS SLIGHT; HYPOCHROMIC SLIGHT; LARGE PLATELETS PRESENT; POIKILOCYTOSIS SLIGHT
[2015-12-18] MEDS: Phenytoin 100 mg/4 ml Oral Susp UD PEG SCH ×3 (10:43→18:10)
[2015-12-18] MEDS: Enoxaparin 40 mg Syringe SC SCH (10:43)
--- NOTE | 2015-12-18 13:37 | CP.PCM.PN ---
Objective - Vital Signs/Intake and Output Vital Signs (last 24 hours): Temp Pulse Resp BP Pulse Ox 98.8 F 90 18 134/58 L 100 12/18/15 05:42 12/18/15 05:42 12/18/15 05:42 12/18/15 05:42 12/18/15 05:42 Intake and Output: 12/18/15 12/18/15 06:59 18:59 Intake Total 800 Output Total 1200 Balance -400 - Medications Medications: Current Medications Aspirin (Aspirin) 325 mg PO DAILY [facility] Last Admin: 11/23/15 09:42 Dose: 325 mg Clopidogrel Bisulfate (Plavix) 75 mg PO DAILY [facility] Last Admin: 12/18/15 10:43 Dose: 75 mg Enoxaparin Sodium (Lovenox) 40 mg SC DAILY [facility] Last Admin: 12/18/15 10:43 Dose: 40 mg Famotidine (Pepcid) 20 mg PO BID [facility] Last Admin: 12/18/15 10:43 Dose: 20 mg Piperacillin Sod/Tazobactam Sod (Zosyn 3.375 Gm Iv Premix) 50 mls @ 100 mls/hr IVPB Q6H [facility] Last Admin: 12/18/15 13:05 Dose: 100 mls/hr Lisinopril (Zestril) 5 mg PO DAILY [facility] Last Admin: 12/18/15 10:43 Dose: 5 mg Oxybutynin Chloride (Ditropan Tab) 5 mg PO TID [facility] Last Admin: 12/18/15 10:43 Dose: 5 mg Phenytoin (Dilantin) 100 mg PEG TID [facility] Last Admin: 12/18/15 10:43 Dose: 100 mg Polyethylene Glycol (Miralax) 17 gm PEG BID [facility] Last Admin: 08/21/15 11:26 Dose: Not Given - Labs Labs: 12/18/15 07:16 12/18/15 07:16 PT 10.6 SECONDS (9.7-12.2) 11/24/15 14:10 INR 1.0 11/24/15 14:10 APTT 25 SECONDS (21-34) 11/24/15 14:10 Assessment and Plan (1) Respiratory failure Status: Acute (2) Seizures Status: Acute (3) Prophylactic measure Status: Acute (4) Bed sore Status: Acute - Assessment and Plan (Free Text) Assessment: (1) Urinary tract infection Assessment & Plan: 12/19; 12/18: aaa Urine culture + for Proteus Sensitive to zosyn Start Zosyn 3.375gm IVPB Q6H x7 days Get urine culture on Thursday (12/19/15) Urology consult - Dr. Oropeza - help appreciated ID on board - Dr. Armstrong - help apreciated Status: Acute (2) Urinary leakage Assessment & Plan: Continue Ditropan 5mg TID Urology consult - Dr. Oropeza - help appreciated UA + Urine culture + for Proteus Yoo catheter in place Status: Resolved UA + Urine culture + for Proteus Yoo catheter in place Status: Resolved
--- NOTE | 2015-12-18 16:47 | CP.PCM.PN ---
Subjective - Date & Time of Evaluation Date of Evaluation: 12/18/15 Time of Evaluation: 11:00 - Subjective Subjective: Patient was seen and examined during the round with resident. Patient condition remains same. Tolerating tube feeding and patient is stable on trach collar. No family in the room Patient has no fever or chills no acute events overnight reported. Objective - Vital Signs/Intake and Output Vital Signs (last 24 hours): Temp Pulse Resp BP Pulse Ox 99 F 96 H 18 111/64 98 12/18/15 14:00 12/18/15 14:00 12/18/15 14:00 12/18/15 14:00 12/18/15 14:00 Intake and Output: 12/18/15 12/18/15 06:59 18:59 Intake Total 800 Output Total 1200 400 Balance -400 -400 - Medications Medications: Current Medications Aspirin (Aspirin) 325 mg PO DAILY [facility] Last Admin: 11/23/15 09:42 Dose: 325 mg Clopidogrel Bisulfate (Plavix) 75 mg PO DAILY [facility] Last Admin: 12/18/15 10:43 Dose: 75 mg Enoxaparin Sodium (Lovenox) 40 mg SC DAILY [facility] Last Admin: 12/18/15 10:43 Dose: 40 mg Famotidine (Pepcid) 20 mg PO BID [facility] Last Admin: 12/18/15 10:43 Dose: 20 mg Piperacillin Sod/Tazobactam Sod (Zosyn 3.375 Gm Iv Premix) 50 mls @ 100 mls/hr IVPB Q6H [facility] Last Admin: 12/18/15 13:05 Dose: 100 mls/hr Lisinopril (Zestril) 5 mg PO DAILY [facility] Last Admin: 12/18/15 10:43 Dose: 5 mg Oxybutynin Chloride (Ditropan Tab) 5 mg PO TID [facility] Last Admin: 12/18/15 14:51 Dose: 5 mg Phenytoin (Dilantin) 100 mg PEG TID [facility] Last Admin: 12/18/15 14:51 Dose: 100 mg Polyethylene Glycol (Miralax) 17 gm PEG BID [facility] Last Admin: 08/21/15 11:26 Dose: Not Given - Labs Labs: 12/18/15 07:16 12/18/15 07:16 PT 10.6 SECONDS (9.7-12.2) 11/24/15 14:10 INR 1.0 11/24/15 14:10 APTT 25 SECONDS (21-34) 11/24/15 14:10 - Constitutional Appears: No Acute Distress - Eye Exam Eye Exam: EOMI - ENT Exam ENT Exam: Mucous Membranes Moist - Neck Exam Neck Exam: absent: Thyromegaly - Respiratory Exam Respiratory Exam: Decreased Breath Sounds. absent: Rales, Rhonchi, Wheezes, Respiratory Distress - Cardiovascular Exam Cardiovascular Exam: REGULAR RHYTHM, RRR, +S1, +S2. absent: JVD - GI/Abdominal Exam GI & Abdominal Exam: Soft, Normal Bowel Sounds. absent: Distended, Tenderness, Rebound - Extremities Exam Extremities Exam: absent: Pedal Edema - Neurological Exam Additional comments: Patient opened his both eyes, and he slightly follow to moving objects. 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 absent: Erythema Additional comments: Sacral decubitus ulcer stage 1-2, healing up slowly Assessment and Plan - Assessment and Plan (Free Text) Assessment: Assessment and Plan (1) Urinary tract infection Assessment & Plan: 12/18--> cont AV ABx Zosyn, as per ID for Proteus UTI, Prior Notes: Urine culture + for Proteus Sensitive to zosyn Start Zosyn 3.375gm IVPB Q6H x7 days Get urine culture on Thursday (12/19/15) Urology consult - Dr. Oropeza - herbie appreciated ID on board - Dr. Armstrong - herbie apreciated Status: Acute (2) Urinary leakage Assessment & Plan: Continue Ditropan 5mg TID Urology consult - Dr. Oropeza - herbie appreciated UA + Urine culture + for Proteus Yoo catheter in place Status: Resolved (3) Anoxic encephalopathy Assessment & Plan: No acute change in mental status GCS 8 E4V1M3 patient with trach in place. Patient with PEG tube. Pending placement training family in how to take care of patient especially feeding and trach care ,bed sore care Status: Chronic (4) Respiratory failure Assessment & Plan: 12/18--> cont Trach and O2 supplement as needed, Neb as needed, Frequent suctioning Proior Note: Sputum culture 12/06 + psuedomonas: probably colonization. afebrile. normal white count. CXR without infiltrates. No antibiotics for now per Dr. Armstrong tracheostomy with tube change by Dr. Chan on 11/27/15 CXR 12/08--> Tracheostomy tube appears deviated to the left which may be related to patient positioning. Clinical correlation as this does not project over the midline trachea. Bibasilar atelectasis. Mild stable nodularity at the right lung base. (see full report) Cipro started on 11/30 was stopped on 12/08. clean and dry site saturating well on 7L O2 via trach collar No blood tinged secretions noted Bronchial washing grew Pseudomonas ID consult - Dr. Armstrong - help appreciated Working on getting portable suctioning for family to practice Status: Chronic (5) CAD (coronary artery disease) Assessment & Plan: cardiac stents on 06/13/15. Continue Lisinopril 5mg PO daily Continue Plavix 75mg PO daily Continue ASA 325mg PO daily-currently held due to recent trach bleeding Status: Chroinic.. stable, (6) Seizures Assessment & Plan: 12/18--> will get serum dilantin level q 2 week fi stable, Continue dilantin 100mg via PEG TID Status: Chronic (7) Bed sore Assessment & Plan: Stage II 0.5cm x 2cm sacral ulcer Continue wound care, sensicare and medihoney. Continue repositioning of patient q2H. dolphin mattress. Heel air boots. Status: Chronic (8) Prophylactic measure Assessment & Plan: Lovenox 40 SC daily Pepcid 20 mg PO BID SCDs Status: Chronic
[2015-12-19] MEDS: Piperacill/Tazo 3.375gm in Dex 50 ML IVPB SCH ×4 (05:25→23:17)
--- NOTE | 2015-12-19 09:36 | CP.PCM.PN ---
<Cedric Bairesen H - Last Filed: 12/19/15 10:57> Subjective - Date & Time of Evaluation Date of Evaluation: 12/18/15 Time of Evaluation: 07:30 - Subjective Subjective: PGY1 Medicine Note - Dr. Piper Rodrigues's Service: Patient seen and examined at bedside this AM. Patient is on 6L O2 via trach ( tolerating well) and has PEG in place. Patient's eyes open spontaneously. Not responsive to verbal commands. No acute change in mental status. GCS 8: E4V1M3. Unable to obtain ROS. No blood seen in secretions. Yoo in place. No acute events as per nursing. Family not in the room. Objective - Vital Signs/Intake and Output Vital Signs (last 24 hours): Temp Pulse Resp BP Pulse Ox 98.6 F 91 H 18 126/81 100 12/19/15 05:54 12/19/15 05:54 12/19/15 05:54 12/19/15 05:54 12/19/15 05:54 Intake and Output: 12/19/15 12/19/15 06:59 18:59 Intake Total 1120 Output Total 1550 Balance -430 - Medications Medications: Current Medications Aspirin (Aspirin) 325 mg PO DAILY [facility] Last Admin: 11/23/15 09:42 Dose: 325 mg Clopidogrel Bisulfate (Plavix) 75 mg PO DAILY [facility] Last Admin: 12/18/15 10:43 Dose: 75 mg Enoxaparin Sodium (Lovenox) 40 mg SC DAILY [facility] Last Admin: 12/18/15 10:43 Dose: 40 mg Famotidine (Pepcid) 20 mg PO BID [facility] Last Admin: 12/18/15 18:10 Dose: 20 mg Piperacillin Sod/Tazobactam Sod (Zosyn 3.375 Gm Iv Premix) 50 mls @ 100 mls/hr IVPB Q6H [facility] Last Admin: 12/19/15 05:25 Dose: 100 mls/hr Lisinopril (Zestril) 5 mg PO DAILY [facility] Last Admin: 12/18/15 10:43 Dose: 5 mg Oxybutynin Chloride (Ditropan Tab) 5 mg PO TID [facility] Last Admin: 12/18/15 18:11 Dose: 5 mg Phenytoin (Dilantin) 100 mg PEG TID [facility] Last Admin: 12/18/15 18:10 Dose: 100 mg Polyethylene Glycol (Miralax) 17 gm PEG BID [facility] Last Admin: 08/21/15 11:26 Dose: Not Given - Labs Labs: 12/18/15 07:16 12/18/15 07:16 PT 10.6 SECONDS (9.7-12.2) 11/24/15 14:10 INR 1.0 11/24/15 14:10 APTT 25 SECONDS (21-34) 11/24/15 14:10 - Constitutional Appears: Chronically Ill - Head Exam Head Exam: NORMAL INSPECTION - Eye Exam Eye Exam: PERRL. absent: Scleral icterus - ENT Exam ENT Exam: Mucous Membranes Moist - Respiratory Exam Respiratory Exam: Clear to Ausculation Bilateral, NORMAL BREATHING PATTERN - Cardiovascular Exam Cardiovascular Exam: REGULAR RHYTHM, +S1, +S2 - GI/Abdominal Exam GI & Abdominal Exam: Soft, Normal Bowel Sounds. absent: Distended, Firm, Guarding - Extremities Exam Extremities Exam: Normal Capillary Refill, Pedal Edema (trace b/l) - Back Exam Additional comments: improving sacral ulcer. Stage II with cream on it - Neurological Exam Neurological Exam: Altered - Skin Skin Exam: Normal Color, Warm. absent: Intact (sacral ulcer stage II, healing well) Assessment and Plan (1) Urinary tract infection Assessment & Plan: F/U repeat urine culture ordered 12/19/15 Urine culture + for Proteus Sensitive to zosyn Continue Zosyn 3.375gm IVPB Q6H x7 days (day 3) Ditropan 5mg PEG TID for leakage around catheter Urology consult - Dr. Oropeza - help appreciated ID on board - Dr. Armstrong - help apreciated Status: Acute (2) Anoxic encephalopathy Assessment & Plan: No acute change in mental status GCS 8 E4V1M3 patient with trach in place. Patient with PEG tube. Pending placement training family in how to take care of patient Status: Chronic (3) Respiratory failure Assessment & Plan: Sputum culture 12/06 + psuedomonas: probably colonization. afebrile. normal white count. CXR without infiltrates. No antibiotics for now per Dr. Armstrong tracheostomy with tube change by Dr. Chan on 11/27/15 CXR 12/08--> Tracheostomy tube appears deviated to the left which may be related to patient positioning. Clinical correlation as this does not project over the midline trachea. Bibasilar atelectasis. Mild stable nodularity at the right lung base. (see full report) Cipro started on 11/30 was stopped on 12/08. clean and dry site saturating well on 7L O2 via trach collar No blood tinged secretions noted Bronchial washing grew Pseudomonas ID consult - Dr. Armstrong - help appreciated Working on getting portable suctioning for family to practice Status: Acute (4) CAD (coronary artery disease) Assessment & Plan: cardiac stents on 06/13/15. Continue Lisinopril 5mg PO daily Continue Plavix 75mg PO daily Continue ASA 325mg PO daily-currently held due to recent trach bleeding Status: Chronic (5) Seizures Assessment & Plan: Continue dilantin 100mg via PEG TID Status: Chronic (6) Bed sore Assessment & Plan: Stage II 0.5cm x 2cm sacral ulcer Continue wound care, sensicare and medihoney. Continue repositioning of patient q2H. dolphin mattress. Heel air boots. Status: Acute (7) Prophylactic measure Assessment & Plan: Lovenox 40 SC daily Pepcid 20 mg PO BID SCDs Status: Acute <Rashel Rodrigues - Last Filed: 12/19/15 17:08> Objective - Vital Signs/Intake and Output Vital Signs (last 24 hours): Temp Pulse Resp BP Pulse Ox 98.1 F 76 22 110/75 100 12/19/15 14:00 12/19/15 14:00 12/19/15 14:00 12/19/15 14:00 12/19/15 14:00 Intake and Output: 12/19/15 12/19/15 06:59 18:59 Intake Total 1120 Output Total 1550 450 Balance -430 -450 - Medications Medications: Current Medications Aspirin (Aspirin) 325 mg PO DAILY [facility] Last Admin: 11/23/15 09:42 Dose: 325 mg Clopidogrel Bisulfate (Plavix) 75 mg PO DAILY [facility] Last Admin: 12/19/15 10:49 Dose: 75 mg Enoxaparin Sodium (Lovenox) 40 mg SC DAILY [facility] Last Admin: 12/19/15 10:49 Dose: 40 mg Famotidine (Pepcid) 20 mg PO BID [facility] Last Admin: 12/19/15 10:49 Dose: 20 mg Piperacillin Sod/Tazobactam Sod (Zosyn 3.375 Gm Iv Premix) 50 mls @ 100 mls/hr IVPB Q6H [facility] Last Admin: 12/19/15 11:00 Dose: 100 mls/hr Lisinopril (Zestril) 5 mg PO DAILY [facility] Last Admin: 12/19/15 10:49 Dose: 5 mg Oxybutynin Chloride (Ditropan Tab) 5 mg PO TID [facility] Last Admin: 12/19/15 14:56 Dose: 5 mg Phenytoin (Dilantin) 100 mg PEG TID [facility] Last Admin: 12/19/15 14:56 Dose: 100 mg Polyethylene Glycol (Miralax) 17 gm PEG BID [facility] Last Admin: 08/21/15 11:26 Dose: Not Given - Labs Labs: 12/18/15 07:16 12/18/15 07:16 PT 10.6 SECONDS (9.7-12.2) 11/24/15 14:10 INR 1.0 11/24/15 14:10 APTT 25 SECONDS (21-34) 11/24/15 14:10 Attending/Attestation - Attestation I have personally seen and examined this patient.: Yes I have fully participated in the care of the patient.: Yes I have reviewed all pertinent clinical information, including history, physical exam and plan: Yes
[2015-12-19] MEDS: Phenytoin 100 mg/4 ml Oral Susp UD PEG SCH ×3 (10:49→17:08)
[2015-12-19] MEDS: Enoxaparin 40 mg Syringe SC SCH (10:49)
[2015-12-20] MEDS: Piperacill/Tazo 3.375gm in Dex 50 ML IVPB SCH ×4 (05:27→23:32)
--- NOTE | 2015-12-20 09:05 | CARDCATH ---
DATE: 06/13/2015 Addendum to confirmation [id number] and job [id number]. Date of procedure 06/13/2015. Ashu Hamlin MD cc: [id number] TT: 12/20/2015 09:06:15 Confirmation # [id number] Dictation # [id number] in
[2015-12-20] MEDS: Phenytoin 100 mg/4 ml Oral Susp UD PEG SCH ×3 (10:01→17:10)
[2015-12-20] MEDS: Enoxaparin 40 mg Syringe SC SCH (10:03)
--- NOTE | 2015-12-20 13:11 | CP.PCM.PN ---
<Cedric Bairesen H - Last Filed: 12/20/15 13:08> Subjective - Date & Time of Evaluation Date of Evaluation: 12/20/15 Time of Evaluation: 07:50 - Subjective Subjective: PGY1 Medicine Note - Dr. Piper Rodrigues's Service: Patient seen and examined at bedside this AM. Patient on 6L O2 via trach ( tolerating well) with PEG in place. Patient's eyes open spontaneously. Not responsive to verbal commands. No acute change in mental status. GCS 8: E4V1M3. Unable to obtain ROS. No blood seen in secretions. Yoo in place. No acute events as per nursing. Family not in the room. Per nursing, family is giving feedings but not suctioning yet. Objective - Vital Signs/Intake and Output Vital Signs (last 24 hours): Temp Pulse Resp BP Pulse Ox 98 F 108 H 18 130/82 100 12/20/15 05:43 12/20/15 10:01 12/20/15 05:43 12/20/15 10:01 12/20/15 05:43 Intake and Output: 12/20/15 12/20/15 06:59 18:59 Intake Total 2000 Output Total 2000 Balance 0 - Medications Medications: Current Medications Aspirin (Aspirin) 325 mg PO DAILY [facility] Last Admin: 11/23/15 09:42 Dose: 325 mg Clopidogrel Bisulfate (Plavix) 75 mg PO DAILY [facility] Last Admin: 12/20/15 10:01 Dose: 75 mg Enoxaparin Sodium (Lovenox) 40 mg SC DAILY [facility] Last Admin: 12/20/15 10:03 Dose: 40 mg Famotidine (Pepcid) 20 mg PO BID [facility] Last Admin: 12/20/15 10:01 Dose: 20 mg Piperacillin Sod/Tazobactam Sod (Zosyn 3.375 Gm Iv Premix) 50 mls @ 100 mls/hr IVPB Q6H [facility] Last Admin: 12/20/15 11:31 Dose: 100 mls/hr Lisinopril (Zestril) 5 mg PO DAILY [facility] Last Admin: 12/20/15 10:02 Dose: 5 mg Oxybutynin Chloride (Ditropan Tab) 5 mg PO TID [facility] Last Admin: 12/20/15 10:03 Dose: 5 mg Phenytoin (Dilantin) 100 mg PEG TID [facility] Last Admin: 12/20/15 10:01 Dose: 100 mg Polyethylene Glycol (Miralax) 17 gm PEG BID [facility] Last Admin: 08/21/15 11:26 Dose: Not Given - Labs Labs: 12/18/15 07:16 12/18/15 07:16 PT 10.6 SECONDS (9.7-12.2) 11/24/15 14:10 INR 1.0 11/24/15 14:10 APTT 25 SECONDS (21-34) 11/24/15 14:10 - Constitutional Appears: No Acute Distress, Chronically Ill - Head Exam Head Exam: NORMAL INSPECTION - Eye Exam Eye Exam: EOMI - ENT Exam ENT Exam: Mucous Membranes Moist - Respiratory Exam Respiratory Exam: Clear to Ausculation Bilateral, NORMAL BREATHING PATTERN - Cardiovascular Exam Cardiovascular Exam: REGULAR RHYTHM, +S1, +S2 - GI/Abdominal Exam GI & Abdominal Exam: Soft, Normal Bowel Sounds. absent: Distended, Firm, Tenderness - Extremities Exam Extremities Exam: Normal Capillary Refill, Pedal Edema (trace b/l) - Neurological Exam Neurological Exam: Altered, Awake - Skin Skin Exam: Normal Color, Warm Assessment and Plan (1) Urinary tract infection Assessment & Plan: F/U repeat urine culture ordered 12/19/15 Urine culture + for Proteus Sensitive to zosyn Continue Zosyn 3.375gm IVPB Q6H x7 days (day 3) Ditropan 5mg PEG TID for leakage around catheter Urology consult - Dr. Oropeza - herbie appreciated ID on board - Dr. Armstrong - help apreciated Status: Acute (2) Anoxic encephalopathy Assessment & Plan: No acute change in mental status GCS 8 E4V1M3 patient with trach in place. Patient with PEG tube. Pending placement training family in how to take care of patient Status: Chronic (3) Respiratory failure Assessment & Plan: Sputum culture 12/06 + psuedomonas: probably colonization. afebrile. normal white count. CXR without infiltrates. No antibiotics for now per Dr. Armstrong tracheostomy with tube change by Dr. Chan on 11/27/15 CXR 12/08--> Tracheostomy tube appears deviated to the left which may be related to patient positioning. Clinical correlation as this does not project over the midline trachea. Bibasilar atelectasis. Mild stable nodularity at the right lung base. (see full report) Cipro started on 11/30 was stopped on 12/08. clean and dry site saturating well on 7L O2 via trach collar No blood tinged secretions noted Bronchial washing grew Pseudomonas ID consult - Dr. Armstrong - help appreciated Working on getting portable suctioning for family to practice Status: Acute (4) CAD (coronary artery disease) Assessment & Plan: cardiac stents on 06/13/15. Continue Lisinopril 5mg PO daily Continue Plavix 75mg PO daily Continue ASA 325mg PO daily-currently held due to recent trach bleeding Status: Chronic (5) Seizures Assessment & Plan: Continue dilantin 100mg via PEG TID Status: Chronic (6) Bed sore Assessment & Plan: Stage II 0.5cm x 2cm sacral ulcer Continue wound care, sensicare and medihoney. Continue repositioning of patient q2H. dolphin mattress. Heel air boots. Status: Acute (7) Prophylactic measure Assessment & Plan: Lovenox 40 SC daily Pepcid 20 mg PO BID [facility] Status: Acute <Rashel Rodrigues - Last Filed: 12/20/15 15:57> Objective - Vital Signs/Intake and Output Vital Signs (last 24 hours): Temp Pulse Resp BP Pulse Ox 98.5 F 123 H 20 139/74 99 12/20/15 13:49 12/20/15 13:49 12/20/15 13:49 12/20/15 13:49 12/20/15 13:49 Intake and Output: 12/20/15 12/20/15 06:59 18:59 Intake Total 1999 Output Total 1999 Balance 0 - Medications Medications: Current Medications Aspirin (Aspirin) 325 mg PO DAILY [facility] Last Admin: 11/23/15 09:42 Dose: 325 mg Clopidogrel Bisulfate (Plavix) 75 mg PO DAILY [facility] Last Admin: 12/20/15 10:01 Dose: 75 mg Enoxaparin Sodium (Lovenox) 40 mg SC DAILY [facility] Last Admin: 12/20/15 10:03 Dose: 40 mg Famotidine (Pepcid) 20 mg PO BID [facility] Last Admin: 12/20/15 10:01 Dose: 20 mg Piperacillin Sod/Tazobactam Sod (Zosyn 3.375 Gm Iv Premix) 50 mls @ 100 mls/hr IVPB Q6H [facility] Last Admin: 12/20/15 11:31 Dose: 100 mls/hr Lisinopril (Zestril) 5 mg PO DAILY [facility] Last Admin: 12/20/15 10:02 Dose: 5 mg Oxybutynin Chloride (Ditropan Tab) 5 mg PO TID [facility] Last Admin: 12/20/15 13:33 Dose: 5 mg Phenytoin (Dilantin) 100 mg PEG TID [facility] Last Admin: 12/20/15 13:33 Dose: 100 mg Polyethylene Glycol (Miralax) 17 gm PEG BID [facility] Last Admin: 08/21/15 11:26 Dose: Not Given - Labs Labs: 12/18/15 07:16 12/18/15 07:16 PT 10.6 SECONDS (9.7-12.2) 11/24/15 14:10 INR 1.0 11/24/15 14:10 APTT 25 SECONDS (21-34) 11/24/15 14:10 Attending/Attestation - Attestation I have personally seen and examined this patient.: Yes I have fully participated in the care of the patient.: Yes I have reviewed all pertinent clinical information, including history, physical exam and plan: Yes Notes (Text): 12/20/15 15:56 Patient was seen and examined during the round with resident. There is no new events. Patient is tolerating PEG tube feeding. Continue supportive management including trachea care. Patient family in the room and discussed with him at length about the patient care to be done by family at home and to practice patient care at home while he is in the hospital.
[2015-12-21] MEDS: Piperacill/Tazo 3.375gm in Dex 50 ML IVPB SCH ×3 (05:41→17:45)
[2015-12-21 07:27] LABS: BASO % 0.4 % (0.0-2.0); EOS # 2.9 K/uL (0.0-0.7); EOS % 25.9 % (0.0-4.0); HEMOGLOBIN 11.5 g/dL (12.0-18.0); LYMPH # 1.4 K/uL (1.0-4.3); LYMPH % 12.2 % (20.0-40.0); MEAN CELL VOLUME 94.4 fL (80.0-94.0); MEAN CORPUSCULAR HGB CONC 32.8 g/dL (33.0-37.0); MEAN PLATELET VOLUME 8.4 fL (7.2-11.7); MONO % 8.8 % (0.0-10.0); NEUT # 5.9 K/uL (1.8-7.0); NEUT % 52.7 % (50.0-75.0); PLATELET COUNT 284 K/uL (130-400); RBC 3.71 Mil/uL (4.40-5.90); WHITE BLOOD COUNT 11.1 K/uL (4.8-10.8)
[2015-12-21 07:40] LABS: ALBUMIN 3.4 g/dL (3.5-5.0)
[2015-12-21 07:43] LABS: ALB/GLOB RATIO 0.9 (1.0-2.1); ALT/SGPT 47 U/L (21-72); AST/SGOT 30 U/L (17-59); BLOOD UREA NITROGEN 18 mg/dL (9-20); GFR NON-AFRICAN AMERICAN > 60
[2015-12-21 07:44] LABS: CALCIUM 8.7 mg/dL (8.4-10.2)
[2015-12-21] MEDS: Phenytoin 100 mg/4 ml Oral Susp UD PEG SCH ×3 (10:01→18:34)
[2015-12-21 11:37] LABS: EOSINOPHIL 30 % (0-4); LYMPHOCYTE 14 % (20-40); MONOCYTE 3 % (0-10); NEUTROPHIL 53 % (50-75); PLATELET ESTIMATE NORMAL (NORMAL); TOTAL CELLS COUNTED 100
[2015-12-21 11:38] LABS: SCHISTOCYTES SLIGHT
[2015-12-21] MEDS: Enoxaparin 40 mg Syringe SC SCH (12:15)
--- NOTE | 2015-12-21 17:46 | CP.PCM.PN ---
<Jduith Baires Michelle - Last Filed: 12/21/15 17:43> Subjective - Date & Time of Evaluation Date of Evaluation: 12/21/15 Time of Evaluation: 06:20 - Subjective Subjective: PGY1 Medicine Note - Dr. Rodrigues's Service: Patient seen and examined at bedside this AM. Patient on 6L O2 via trach ( tolerating well) with PEG in place. Patient's eyes open spontaneously. Not responsive to verbal commands. No acute change in mental status. GCS 8: E4V1M3. Unable to obtain ROS. No blood seen in secretions. Yoo in place. No leakage. Family not in the room. Objective - Vital Signs/Intake and Output Vital Signs (last 24 hours): Temp Pulse Resp BP Pulse Ox 98.5 F 86 20 143/87 98 12/21/15 14:48 12/21/15 14:48 12/21/15 14:48 12/21/15 14:48 12/21/15 14:48 Intake and Output: 12/21/15 12/21/15 06:59 18:59 Intake Total 1150 850 Output Total 1650 400 Balance -500 450 - Medications Medications: Current Medications Aspirin (Aspirin) 325 mg PO DAILY [facility] Last Admin: 11/23/15 09:42 Dose: 325 mg Clopidogrel Bisulfate (Plavix) 75 mg PO DAILY [facility] Last Admin: 12/21/15 10:01 Dose: 75 mg Enoxaparin Sodium (Lovenox) 40 mg SC DAILY [facility] Last Admin: 12/21/15 12:15 Dose: 40 mg Famotidine (Pepcid) 20 mg PO BID [facility] Last Admin: 12/21/15 10:02 Dose: 20 mg Piperacillin Sod/Tazobactam Sod (Zosyn 3.375 Gm Iv Premix) 50 mls @ 100 mls/hr IVPB Q6H [facility] Last Admin: 12/21/15 12:00 Dose: 100 mls/hr Lisinopril (Zestril) 5 mg PO DAILY [facility] Last Admin: 12/21/15 10:02 Dose: 5 mg Oxybutynin Chloride (Ditropan Tab) 5 mg PO TID [facility] Last Admin: 12/21/15 14:55 Dose: 5 mg Phenytoin (Dilantin) 100 mg PEG TID [facility] Last Admin: 12/21/15 14:52 Dose: 100 mg Polyethylene Glycol (Miralax) 17 gm PEG BID [facility] Last Admin: 08/21/15 11:26 Dose: Not Given - Labs Labs: 12/21/15 07:06 12/21/15 07:06 PT 10.6 SECONDS (9.7-12.2) 11/24/15 14:10 INR 1.0 11/24/15 14:10 APTT 25 SECONDS (21-34) 11/24/15 14:10 - Constitutional Appears: Chronically Ill - Eye Exam Eye Exam: PERRL. absent: Scleral icterus - ENT Exam ENT Exam: Mucous Membranes Moist - Respiratory Exam Respiratory Exam: Clear to Ausculation Bilateral, NORMAL BREATHING PATTERN - Cardiovascular Exam Cardiovascular Exam: REGULAR RHYTHM, +S1, +S2 - GI/Abdominal Exam GI & Abdominal Exam: Soft, Normal Bowel Sounds - Extremities Exam Extremities Exam: Normal Capillary Refill. absent: Pedal Edema - Neurological Exam Neurological Exam: Altered - Skin Skin Exam: Normal Color, Warm Assessment and Plan (1) Urinary tract infection Status: Acute (2) Anoxic encephalopathy Status: Chronic (3) Respiratory failure Status: Acute (4) CAD (coronary artery disease) Status: Chronic (5) Seizures Status: Chronic (6) Bed sore Status: Acute (7) Prophylactic measure Status: Acute - Assessment and Plan (Free Text) Assessment: (1) Urinary tract infection Assessment & Plan: repeat urine culture ordered 12/19/15 + for proteus mirabilis. sensitive to zosyn. continue zosyn day 4 Urine culture + for Proteus Sensitive to zosyn Continue Zosyn 3.375gm IVPB Q6H x7 days (day 4) Ditropan 5mg PEG TID for leakage around catheter Urology consult - Dr. Oropeza - help appreciated ID on board - Dr. Armstrong - help apreciated Status: Acute (2) Anoxic encephalopathy Assessment & Plan: No acute change in mental status GCS 8 E4V1M3 patient with trach in place. Patient with PEG tube. Pending placement training family in how to take care of patient Status: Chronic (3) Respiratory failure Assessment & Plan: Sputum culture 12/06 + psuedomonas: probably colonization. afebrile. normal white count. CXR without infiltrates. No antibiotics for now per Dr. Armstrong tracheostomy with tube change by Dr. Chan on 11/27/15 CXR 12/08--> Tracheostomy tube appears deviated to the left which may be related to patient positioning. Clinical correlation as this does not project over the midline trachea. Bibasilar atelectasis. Mild stable nodularity at the right lung base. (see full report) Cipro started on 11/30 was stopped on 12/08. clean and dry site saturating well on 7L O2 via trach collar No blood tinged secretions noted Bronchial washing grew Pseudomonas ID consult - Dr. Armstrong - help appreciated Working on getting portable suctioning for family to practice Status: Acute (4) CAD (coronary artery disease) Assessment & Plan: cardiac stents on 06/13/15. Continue Lisinopril 5mg PO daily Continue Plavix 75mg PO daily Continue ASA 325mg PO daily-currently held due to recent trach bleeding Status: Chronic (5) Seizures Assessment & Plan: Continue dilantin 100mg via PEG TID Status: Chronic (6) Bed sore Assessment & Plan: Stage II 0.5cm x 2cm sacral ulcer Continue wound care, sensicare and medihoney. Continue repositioning of patient q2H. dolphin mattress. Heel air boots. Status: Acute (7) Prophylactic measure Assessment & Plan: Lovenox 40 SC daily Pepcid 20 mg PO BID [facility] Status: Acute <Rashel Rodrigues - Last Filed: 12/22/15 07:52> Objective - Vital Signs/Intake and Output Vital Signs (last 24 hours): Temp Pulse Resp BP Pulse Ox 97.7 F 88 18 132/74 98 12/22/15 05:30 12/22/15 05:30 12/22/15 05:30 12/22/15 05:30 12/22/15 05:30 Intake and Output: 12/22/15 12/22/15 06:59 18:59 Intake Total 770 Output Total 1010 Balance -240 - Medications Medications: Current Medications Aspirin (Aspirin) 325 mg PO DAILY [facility] Last Admin: 11/23/15 09:42 Dose: 325 mg Clopidogrel Bisulfate (Plavix) 75 mg PO DAILY [facility] Last Admin: 12/21/15 10:01 Dose: 75 mg Enoxaparin Sodium (Lovenox) 40 mg SC DAILY [facility] Last Admin: 12/21/15 12:15 Dose: 40 mg Famotidine (Pepcid) 20 mg PO BID [facility] Last Admin: 12/21/15 18:34 Dose: 20 mg Piperacillin Sod/Tazobactam Sod (Zosyn 3.375 Gm Iv Premix) 50 mls @ 100 mls/hr IVPB Q6H [facility] Last Admin: 12/22/15 06:13 Dose: 100 mls/hr Lisinopril (Zestril) 5 mg PO DAILY [facility] Last Admin: 12/21/15 10:02 Dose: 5 mg Oxybutynin Chloride (Ditropan Tab) 5 mg PO TID [facility] Last Admin: 12/21/15 18:34 Dose: 5 mg Phenytoin (Dilantin) 100 mg PEG TID [facility] Last Admin: 12/21/15 18:34 Dose: 100 mg Polyethylene Glycol (Miralax) 17 gm PEG BID [facility] Last Admin: 08/21/15 11:26 Dose: Not Given - Labs Labs: 12/21/15 07:06 12/21/15 07:06 PT 10.6 SECONDS (9.7-12.2) 11/24/15 14:10 INR 1.0 11/24/15 14:10 APTT 25 SECONDS (21-34) 11/24/15 14:10 Attending/Attestation - Attestation I have personally seen and examined this patient.: Yes I have fully participated in the care of the patient.: Yes I have reviewed all pertinent clinical information, including history, physical exam and plan: Yes
[2015-12-22] MEDS: Piperacill/Tazo 3.375gm in Dex 50 ML IVPB SCH ×5 (00:39→23:15)
--- NOTE | 2015-12-22 01:20 | CP.PCM.PN ---
<Sandra Mercedes - Last Filed: 12/22/15 01:17> Subjective - Date & Time of Evaluation Date of Evaluation: 12/22/15 Time of Evaluation: 00:20 - Subjective Subjective: Medicine Note Pt seen and examined. Pt is getting oxygen via trach. Trach site is clean and dry. Pt continues to be altered and therefore unable to obtain ROS. No acute change in mental status. Pt has PEG in place. Sacral wound was inspected and appears to be healing well. No acute events as per nursing. Objective - Vital Signs/Intake and Output Vital Signs (last 24 hours): Temp Pulse Resp BP Pulse Ox 98.1 F 87 18 120/75 98 12/21/15 21:38 12/21/15 21:38 12/21/15 21:38 12/21/15 21:38 12/21/15 21:38 Intake and Output: 12/21/15 12/22/15 18:59 06:59 Intake Total 850 Output Total 400 650 Balance 450 -650 - Medications Medications: Current Medications Aspirin (Aspirin) 325 mg PO DAILY [facility] Last Admin: 11/23/15 09:42 Dose: 325 mg Clopidogrel Bisulfate (Plavix) 75 mg PO DAILY [facility] Last Admin: 12/21/15 10:01 Dose: 75 mg Enoxaparin Sodium (Lovenox) 40 mg SC DAILY [facility] Last Admin: 12/21/15 12:15 Dose: 40 mg Famotidine (Pepcid) 20 mg PO BID [facility] Last Admin: 12/21/15 18:34 Dose: 20 mg Piperacillin Sod/Tazobactam Sod (Zosyn 3.375 Gm Iv Premix) 50 mls @ 100 mls/hr IVPB Q6H [facility] Last Admin: 12/22/15 00:39 Dose: 100 mls/hr Lisinopril (Zestril) 5 mg PO DAILY [facility] Last Admin: 12/21/15 10:02 Dose: 5 mg Oxybutynin Chloride (Ditropan Tab) 5 mg PO TID [facility] Last Admin: 12/21/15 18:34 Dose: 5 mg Phenytoin (Dilantin) 100 mg PEG TID [facility] Last Admin: 12/21/15 18:34 Dose: 100 mg Polyethylene Glycol (Miralax) 17 gm PEG BID [facility] Last Admin: 08/21/15 11:26 Dose: Not Given - Labs Labs: 12/21/15 07:06 12/21/15 07:06 PT 10.6 SECONDS (9.7-12.2) 11/24/15 14:10 INR 1.0 11/24/15 14:10 APTT 25 SECONDS (21-34) 11/24/15 14:10 - Constitutional Appears: Non-toxic, No Acute Distress - Head Exam Head Exam: NORMAL INSPECTION, NORMOCEPHALIC - Eye Exam Eye Exam: Normal appearance Pupil Exam: PERRL - Respiratory Exam Respiratory Exam: Clear to Ausculation Bilateral, NORMAL BREATHING PATTERN - Cardiovascular Exam Cardiovascular Exam: REGULAR RHYTHM, +S1, +S2 - GI/Abdominal Exam GI & Abdominal Exam: Soft, Normal Bowel Sounds Additional comments: PEG in place - Extremities Exam Extremities Exam: Pedal Edema - Neurological Exam Neurological Exam: Altered - Skin Skin Exam: Dry, Normal Color Assessment and Plan - Assessment and Plan (Free Text) Assessment: (1) Urinary tract infection Assessment & Plan: repeat urine culture ordered 12/19/15 + for proteus mirabilis. sensitive to zosyn. continue zosyn day 4 Urine culture + for Proteus Sensitive to zosyn Continue Zosyn 3.375gm IVPB Q6H x7 days (day 4) Ditropan 5mg PEG TID for leakage around catheter Urology consult - Dr. Oropeza - help appreciated ID on board - Dr. Armstrong - help apreciated Status: Acute (2) Anoxic encephalopathy Assessment & Plan: No acute change in mental status GCS 8 E4V1M3 patient with trach in place. Patient with PEG tube. Pending placement training family in how to take care of patient Status: Chronic (3) Respiratory failure Assessment & Plan: Sputum culture 12/06 + psuedomonas: probably colonization. afebrile. normal white count. CXR without infiltrates. No antibiotics for now per Dr. Armstrong tracheostomy with tube change by Dr. Chan on 11/27/15 CXR 12/08--> Tracheostomy tube appears deviated to the left which may be related to patient positioning. Clinical correlation as this does not project over the midline trachea. Bibasilar atelectasis. Mild stable nodularity at the right lung base. (see full report) Cipro started on 11/30 was stopped on 12/08. clean and dry site saturating well on 7L O2 via trach collar No blood tinged secretions noted Bronchial washing grew Pseudomonas ID consult - Dr. Armstrong - help appreciated Working on getting portable suctioning for family to practice Status: Acute (4) CAD (coronary artery disease) Assessment & Plan: cardiac stents on 06/13/15. Continue Lisinopril 5mg PO daily Continue Plavix 75mg PO daily Continue ASA 325mg PO daily-currently held due to recent trach bleeding Status: Chronic (5) Seizures Assessment & Plan: Continue dilantin 100mg via PEG TID Status: Chronic (6) Bed sore Assessment & Plan: Stage II 0.5cm x 2cm sacral ulcer Continue wound care, sensicare and medihoney. Continue repositioning of patient q2H. dolphin mattress. Heel air boots. Status: Acute (7) Prophylactic measure Assessment & Plan: Lovenox 40 SC daily Pepcid 20 mg PO BID [facility] Status: Acute <Rashel Rodrigues - Last Filed: 12/22/15 15:17> Objective - Vital Signs/Intake and Output Vital Signs (last 24 hours): Temp Pulse Resp BP Pulse Ox 98.2 F 91 H 20 106/40 L 97 12/22/15 14:37 12/22/15 14:37 12/22/15 14:37 12/22/15 14:37 12/22/15 14:37 Intake and Output: 12/22/15 12/22/15 06:59 18:59 Intake Total 770 Output Total 1010 300 Balance -240 -300 - Medications Medications: Current Medications Aspirin (Aspirin) 325 mg PO DAILY [facility] Last Admin: 11/23/15 09:42 Dose: 325 mg Clopidogrel Bisulfate (Plavix) 75 mg PO DAILY [facility] Last Admin: 12/22/15 10:08 Dose: 75 mg Enoxaparin Sodium (Lovenox) 40 mg SC DAILY [facility] Last Admin: 12/22/15 10:08 Dose: 40 mg Famotidine (Pepcid) 20 mg PO BID [facility] Last Admin: 12/22/15 10:08 Dose: 20 mg Piperacillin Sod/Tazobactam Sod (Zosyn 3.375 Gm Iv Premix) 50 mls @ 100 mls/hr IVPB Q6H [facility] Last Admin: 12/22/15 11:43 Dose: 100 mls/hr Lisinopril (Zestril) 5 mg PO DAILY [facility] Last Admin: 12/22/15 10:08 Dose: 5 mg Oxybutynin Chloride (Ditropan Tab) 5 mg PO TID [facility] Last Admin: 12/22/15 13:47 Dose: 5 mg Phenytoin (Dilantin) 100 mg PEG TID [facility] Last Admin: 12/22/15 13:47 Dose: 100 mg Polyethylene Glycol (Miralax) 17 gm PEG BID [facility] Last Admin: 08/21/15 11:26 Dose: Not Given - Labs Labs: 12/21/15 07:06 12/21/15 07:06 PT 10.6 SECONDS (9.7-12.2) 11/24/15 14:10 INR 1.0 11/24/15 14:10 APTT 25 SECONDS (21-34) 11/24/15 14:10 Attending/Attestation - Attestation I have personally seen and examined this patient.: Yes I have fully participated in the care of the patient.: Yes I have reviewed all pertinent clinical information, including history, physical exam and plan: Yes Notes (Text): 12/22/15 15:17 Patient was seen and examined during the round with the resident. Patient is stable. Continue supportive management with feeding, oxygen supplement, wound care, Discussed planning awaiting placement
[2015-12-22] MEDS: Phenytoin 100 mg/4 ml Oral Susp UD PEG SCH ×3 (10:08→17:38)
[2015-12-22] MEDS: Enoxaparin 40 mg Syringe SC SCH (10:08)
--- NOTE | 2015-12-23 01:03 | CP.PCM.PN ---
Addendum entered and electronically signed by Nely Pate DO 12/23/15 11:47 : At 0800 the patient's PEG tube came out of place. I was notified by the patient 's nurse Shaylee that she had placed a baker to keep the insertion site open. I spoke with rn neurosurgical Dr Doshi who informed Dr Chan about situation. The patient was seen by Dr Chan and ordered abdominal flat plate to evaluate whether the baker tube could be used in place of peg tube. Will f/u with imaging results and Dr Chan's further recommendations. Nely Pate DO, PGY1 Original Note: <Sandra Mercedes - Last Filed: 12/23/15 01:01> Subjective - Date & Time of Evaluation Date of Evaluation: 12/23/15 Time of Evaluation: 00:25 - Subjective Subjective: Medicine Note Pt seen and examined. Pt is getting oxygen via trach, no blood in secretions. Pt continues to be altered and no change in mental status. Family not present in room. Pt has PEG and baker in place. Objective - Vital Signs/Intake and Output Vital Signs (last 24 hours): Temp Pulse Resp BP Pulse Ox 98.5 F 87 18 112/74 99 12/22/15 21:12 12/22/15 21:12 12/22/15 21:12 12/22/15 21:12 12/22/15 21:12 Intake and Output: 12/22/15 12/23/15 18:59 06:59 Intake Total 1200 Output Total 300 1200 Balance -300 0 - Medications Medications: Current Medications Aspirin (Aspirin) 325 mg PO DAILY [facility] Last Admin: 11/23/15 09:42 Dose: 325 mg Clopidogrel Bisulfate (Plavix) 75 mg PO DAILY [facility] Last Admin: 12/22/15 10:08 Dose: 75 mg Enoxaparin Sodium (Lovenox) 40 mg SC DAILY [facility] Last Admin: 12/22/15 10:08 Dose: 40 mg Famotidine (Pepcid) 20 mg PO BID [facility] Last Admin: 12/22/15 17:38 Dose: 20 mg Piperacillin Sod/Tazobactam Sod (Zosyn 3.375 Gm Iv Premix) 50 mls @ 100 mls/hr IVPB Q6H [facility] Last Admin: 12/22/15 23:15 Dose: 100 mls/hr Lisinopril (Zestril) 5 mg PO DAILY [facility] Last Admin: 12/22/15 10:08 Dose: 5 mg Oxybutynin Chloride (Ditropan Tab) 5 mg PO TID [facility] Last Admin: 12/22/15 17:38 Dose: 5 mg Phenytoin (Dilantin) 100 mg PEG TID [facility] Last Admin: 12/22/15 17:38 Dose: 100 mg Polyethylene Glycol (Miralax) 17 gm PEG BID [facility] Last Admin: 08/21/15 11:26 Dose: Not Given - Labs Labs: 12/21/15 07:06 12/21/15 07:06 PT 10.6 SECONDS (9.7-12.2) 11/24/15 14:10 INR 1.0 11/24/15 14:10 APTT 25 SECONDS (21-34) 11/24/15 14:10 - Constitutional Appears: Cachectic, Chronically Ill - Head Exam Head Exam: NORMAL INSPECTION - Eye Exam Eye Exam: Normal appearance Pupil Exam: PERRL - ENT Exam ENT Exam: Mucous Membranes Moist - Respiratory Exam Respiratory Exam: Clear to Ausculation Bilateral, NORMAL BREATHING PATTERN - Cardiovascular Exam Cardiovascular Exam: REGULAR RHYTHM, +S1, +S2 - GI/Abdominal Exam GI & Abdominal Exam: Soft, Normal Bowel Sounds - Neurological Exam Neurological Exam: Altered - Skin Skin Exam: Dry, Normal Color Assessment and Plan - Assessment and Plan (Free Text) Assessment: (1) Urinary tract infection Assessment & Plan: repeat urine culture ordered 12/19/15 + for proteus mirabilis. sensitive to zosyn. continue zosyn day 4 Urine culture + for Proteus Sensitive to zosyn Continue Zosyn 3.375gm IVPB Q6H x7 days (day 4) Ditropan 5mg PEG TID for leakage around catheter Urology consult - Dr. Oropeza - help appreciated ID on board - Dr. Armstrong - herbie apreciated Status: Acute (2) Anoxic encephalopathy Assessment & Plan: No acute change in mental status GCS 8 [id number] patient with trach in place. Patient with PEG tube. Pending placement training family in how to take care of patient Status: Chronic (3) Respiratory failure Assessment & Plan: Sputum culture 12/06 + psuedomonas: probably colonization. afebrile. normal white count. CXR without infiltrates. No antibiotics for now per Dr. Armstrong tracheostomy with tube change by Dr. Chan on 11/27/15 CXR 12/08--> Tracheostomy tube appears deviated to the left which may be related to patient positioning. Clinical correlation as this does not project over the midline trachea. Bibasilar atelectasis. Mild stable nodularity at the right lung base. (see full report) Cipro started on 11/30 was stopped on 12/08. clean and dry site saturating well on 7L O2 via trach collar No blood tinged secretions noted Bronchial washing grew Pseudomonas ID consult - Dr. Armstrong - help appreciated Working on getting portable suctioning for family to practice Status: Acute (4) CAD (coronary artery disease) Assessment & Plan: cardiac stents on 06/13/15. Continue Lisinopril 5mg PO daily Continue Plavix 75mg PO daily Continue ASA 325mg PO daily-currently held due to recent trach bleeding Status: Chronic (5) Seizures Assessment & Plan: Continue dilantin 100mg via PEG TID Status: Chronic (6) Bed sore Assessment & Plan: Stage II 0.5cm x 2cm sacral ulcer Continue wound care, sensicare and medihoney. Continue repositioning of patient q2H. dolphin mattress. Heel air boots. Status: Acute (7) Prophylactic measure Assessment & Plan: Lovenox 40 SC daily Pepcid 20 mg PO BID [facility] Status: Acute <Rashel Rodrigues - Last Filed: 12/23/15 14:17> Objective - Vital Signs/Intake and Output Vital Signs (last 24 hours): Temp Pulse Resp BP Pulse Ox 98.0 F 98 H 18 126/86 99 12/23/15 14:07 12/23/15 14:07 12/23/15 14:07 12/23/15 14:07 12/23/15 14:07 Intake and Output: 12/23/15 12/23/15 06:59 18:59 Intake Total 2200 Output Total 1700 400 Balance 500 -400 - Medications Medications: Current Medications Aspirin (Aspirin) 325 mg PO DAILY [facility] Last Admin: 11/23/15 09:42 Dose: 325 mg Clopidogrel Bisulfate (Plavix) 75 mg PO DAILY [facility] Last Admin: 12/23/15 11:22 Dose: Not Given Enoxaparin Sodium (Lovenox) 40 mg SC DAILY [facility] Last Admin: 12/23/15 11:53 Dose: 40 mg Famotidine (Pepcid) 20 mg PO BID [facility] Last Admin: 12/23/15 11:22 Dose: Not Given Piperacillin Sod/Tazobactam Sod (Zosyn 3.375 Gm Iv Premix) 50 mls @ 100 mls/hr IVPB Q6H [facility] Last Admin: 12/23/15 11:53 Dose: 100 mls/hr Lisinopril (Zestril) 5 mg PO DAILY [facility] Last Admin: 12/23/15 11:22 Dose: Not Given Oxybutynin Chloride (Ditropan Tab) 5 mg PO TID [facility] Last Admin: 12/23/15 11:22 Dose: Not Given Phenytoin (Dilantin) 100 mg PEG TID [facility] Last Admin: 12/23/15 11:22 Dose: Not Given Polyethylene Glycol (Miralax) 17 gm PEG BID [facility] Last Admin: 08/21/15 11:26 Dose: Not Given - Labs Labs: 12/21/15 07:06 12/21/15 07:06 PT 10.6 SECONDS (9.7-12.2) 11/24/15 14:10 INR 1.0 11/24/15 14:10 APTT 25 SECONDS (21-34) 11/24/15 14:10 Attending/Attestation - Attestation I have personally seen and examined this patient.: Yes I have fully participated in the care of the patient.: Yes I have reviewed all pertinent clinical information, including history, physical exam and plan: Yes Notes (Text): 12/23/15 14:15 Patient was seen and examined during the round with the resident. Patient thank you was excellently dislodged during cleaning the patient. Since patient thank you was placed finding surgical team we informed the surgical team to replace the PEG tube. Patient's RN has already placed a Baker' s catheter in the PACU site. Surgical team discussed with attending who recommended to follow with confirmation with x-ray with contrast which is confirmed and recommended to keep on the PACU for feeding and medications and to use larger side Foleys if necessary. Continue supportive management.
[2015-12-23] MEDS: Piperacill/Tazo 3.375gm in Dex 50 ML IVPB SCH ×4 (05:15→23:15)
[2015-12-23] MEDS: Phenytoin 100 mg/4 ml Oral Susp UD PEG SCH ×3 (11:22→18:05)
[2015-12-23] MEDS: Enoxaparin 40 mg Syringe SC SCH (11:53)
--- NOTE | 2015-12-23 13:32 | RAD ---
HISTORY: to eval for tube feedings COMPARISON: None. TECHNIQUE: 60 cc of contrast was injected into the patient's feeding tube. FINDINGS: Contrast is seen within the stomach and proximal small bowel. There is no evidence of contrast leakage on the study. IMPRESSION: Feeding tube with the tip positioned in the stomach.
--- NOTE | 2015-12-23 13:45 | CP.PCM.PN ---
Subjective - Date & Time of Evaluation Date of Evaluation: 12/23/15 Time of Evaluation: 12:00 - Subjective Subjective: THORACIC SURGERY PROGRESS NOTE FOR DR. ROCIO Singhyo M s/p tracheostomy and PEG tube placement after cardiac arrest with anoxic brain injury in May 2015. PEG tube and Trach were done on 06/20/2015 and on 2015, there was a bronchoalveolar lavage and tracheostomy exchange done. Today, the PEG tube came out of place. A Yoo was placed in the stomach via the PEG tube insertion site. Omnipaque was injected into the catheter and an X-ray was done which showed contrast in the stomach and proximal small bowel with no contrast leakage. Objective - Vital Signs/Intake and Output Vital Signs (last 24 hours): Temp Pulse Resp BP Pulse Ox 97.9 F 89 20 130/85 98 12/23/15 05:59 12/23/15 05:59 12/23/15 05:59 12/23/15 05:59 12/23/15 05:59 Intake and Output: 12/23/15 12/23/15 06:59 18:59 Intake Total 2200 Output Total 1700 Balance 500 - Medications Medications: Current Medications Aspirin (Aspirin) 325 mg PO DAILY [facility] Last Admin: 11/23/15 09:42 Dose: 325 mg Clopidogrel Bisulfate (Plavix) 75 mg PO DAILY [facility] Last Admin: 12/23/15 11:22 Dose: Not Given Enoxaparin Sodium (Lovenox) 40 mg SC DAILY [facility] Last Admin: 12/23/15 11:53 Dose: 40 mg Famotidine (Pepcid) 20 mg PO BID [facility] Last Admin: 12/23/15 11:22 Dose: Not Given Piperacillin Sod/Tazobactam Sod (Zosyn 3.375 Gm Iv Premix) 50 mls @ 100 mls/hr IVPB Q6H [facility] Last Admin: 12/23/15 11:53 Dose: 100 mls/hr Lisinopril (Zestril) 5 mg PO DAILY [facility] Last Admin: 12/23/15 11:22 Dose: Not Given Oxybutynin Chloride (Ditropan Tab) 5 mg PO TID [facility] Last Admin: 12/23/15 11:22 Dose: Not Given Phenytoin (Dilantin) 100 mg PEG TID [facility] Last Admin: 01/31/16 11:22 Dose: Not Given Polyethylene Glycol (Miralax) 17 gm PEG BID [facility] Last Admin: 08/21/15 11:26 Dose: Not Given - Labs Labs: 12/21/15 07:06 12/21/15 07:06 PT 10.6 SECONDS (9.7-12.2) 11/24/15 14:10 INR 1.0 11/24/15 14:10 APTT 25 SECONDS (21-34) 11/24/15 14:10 - Constitutional Appears: Cachectic, Chronically Ill - Eye Exam Eye Exam: Normal appearance, PERRL - ENT Exam ENT Exam: Mucous Membranes Moist - Respiratory Exam Respiratory Exam: Clear to Ausculation Bilateral, NORMAL BREATHING PATTERN - Cardiovascular Exam Cardiovascular Exam: REGULAR RHYTHM, +S1, +S2 - GI/Abdominal Exam GI & Abdominal Exam: Soft, Normal Bowel Sounds - Neurological Exam Neurological Exam: Altered. absent: Oriented x3 - Skin Skin Exam: Dry, Normal Color Assessment and Plan - Assessment and Plan (Free Text) Assessment: 65yo M s/p tracheostomy and PEG tube placement after cardiac arrest with anoxic brain injury in May 2015. PEG tube and Trach were done on 06/20/2015 and on 2015, there was a bronchoalveolar lavage and tracheostomy exchange done. Today, the PEG tube came out of place. A Yoo was placed in the stomach via the PEG tube insertion site. Omnipaque was injected into the catheter and an X-ray was done which showed contrast in the stomach and proximal small bowel with no contrast leakage. The Yoo catheter may be used for feeds in place of the PEG tube. If needed, a larger diameter Yoo may be used. Discussed plan with Dr. Rocio Doshi PGY-1
[2015-12-24] MEDS: Piperacill/Tazo 3.375gm in Dex 50 ML IVPB SCH ×3 (05:25→17:55)
[2015-12-24 07:34] LABS: BASO % 0.4 % (0.0-2.0); EOS # 2.4 K/uL (0.0-0.7); EOS % 20.5 % (0.0-4.0); HEMOGLOBIN 12.1 g/dL (12.0-18.0); LYMPH # 1.9 K/uL (1.0-4.3); LYMPH % 16.2 % (20.0-40.0); MEAN CELL VOLUME 94.1 fL (80.0-94.0); MEAN CORPUSCULAR HEMOGLOBIN 31.2 pg (27.0-31.0); MEAN CORPUSCULAR HGB CONC 33.1 g/dL (33.0-37.0); MEAN PLATELET VOLUME 8.2 fL (7.2-11.7); MONO # 1.2 K/uL (0.0-0.8); MONO % 10.7 % (0.0-10.0); NEUT % 52.2 % (50.0-75.0); PLATELET COUNT 305 K/uL (130-400); RED CELL DISTRIBUTION WIDTH 14.7 % (11.5-14.5); WHITE BLOOD COUNT 11.5 K/uL (4.8-10.8)
--- NOTE | 2015-12-24 08:02 | CP.PCM.PN ---
"<Howard Lopez - Last Filed: 12/24/15 17:01> Subjective - Date & Time of Evaluation Date of Evaluation: 12/24/15 Time of Evaluation: 08:51 - Subjective Subjective: PGY1 Medicine Progress Note | Dr. Demetrice Ying's Service Pt. seen and examined at bedside. At the time of exam, the pt was in bed with trach collar in place. Pt. awake but non-verbal, therefore ROS unobtainable. Objective - Vital Signs/Intake and Output Vital Signs (last 24 hours): Temp Pulse Resp BP Pulse Ox 99.2 F 94 H 18 125/82 100 12/24/15 05:55 12/24/15 05:55 12/24/15 05:55 12/24/15 05:55 12/24/15 05:55 Intake and Output: 12/24/15 12/24/15 06:59 18:59 Intake Total 1900 Output Total 1950 Balance -50 - Medications Medications: Current Medications Aspirin (Aspirin) 325 mg PO DAILY [facility] Last Admin: 11/23/15 09:42 Dose: 325 mg Clopidogrel Bisulfate (Plavix) 75 mg PO DAILY [facility] Last Admin: 12/23/15 14:32 Dose: 75 mg Enoxaparin Sodium (Lovenox) 40 mg SC DAILY [facility] Last Admin: 12/23/15 11:53 Dose: 40 mg Famotidine (Pepcid) 20 mg PO BID [facility] Last Admin: 12/23/15 18:05 Dose: 20 mg Piperacillin Sod/Tazobactam Sod (Zosyn 3.375 Gm Iv Premix) 50 mls @ 100 mls/hr IVPB Q6H [facility] Last Admin: 12/24/15 05:25 Dose: 100 mls/hr Lisinopril (Zestril) 5 mg PO DAILY [facility] Last Admin: 12/23/15 14:32 Dose: 5 mg Oxybutynin Chloride (Ditropan Tab) 5 mg PO TID [facility] Last Admin: 12/23/15 18:05 Dose: 5 mg Phenytoin (Dilantin) 100 mg PEG TID [facility] Last Admin: 12/23/15 18:05 Dose: 100 mg Polyethylene Glycol (Miralax) 17 gm PEG BID [facility] Last Admin: 08/21/15 11:26 Dose: Not Given - Labs Labs: 12/24/15 07:18 12/21/15 07:06 PT 10.6 SECONDS (9.7-12.2) 11/24/15 14:10 INR 1.0 11/24/15 14:10 APTT 25 SECONDS (21-34) 11/24/15 14:10 - Constitutional Appears: Cachectic, Chronically Ill - Head Exam Head Exam: ATRAUMATIC, NORMOCEPHALIC - Eye Exam Eye Exam: absent: Scleral icterus - ENT Exam ENT Exam: Mucous Membranes Moist - Cardiovascular Exam Cardiovascular Exam: REGULAR RHYTHM, +S1, +S2. absent: Gallop, Rubs, Murmur - GI/Abdominal Exam GI & Abdominal Exam: Soft, Normal Bowel Sounds - Neurological Exam Neurological Exam: Altered - Skin Skin Exam: Dry, Warm Assessment and Plan - Assessment and Plan (Free Text) Plan: (1) Urinary tract infection Assessment & Plan: repeat urine culture ordered 12/19/15 were positive for proteus mirabilis. sensitive to zosyn. Continue Zosyn 3.375gm IVPB Q6H x7 days (day 5) Ditropan 5mg PEG TID for leakage around catheter Urology consult - Dr. Oropeza - help appreciated ID on board - Dr. Armstrong - help apreciated Status: Acute (2) Anoxic encephalopathy Assessment & Plan: No acute change in mental status GCS 8 [id number] patient with trach in place. Patient with baker catheter tube in place of PEG tube that fell out yesterday. As per Dr. Chan, OK to use baker tube for now. Pending placement training family in how to take care of patient Status: Chronic (3) Respiratory failure Assessment & Plan: 12/24: Trach collar in place. Sputum culture 12/06 + pseudomonas: probably colonization. afebrile. normal white count. CXR without infiltrates. No antibiotics for now per Dr. Armstrong tracheostomy with tube change by Dr. Chan on 11/27/15 CXR 12/08--> Tracheostomy tube appears deviated to the left which may be related to patient positioning. Clinical correlation as this does not project over the midline trachea. Bibasilar atelectasis. Mild stable nodularity at the right lung base. (see full report) Cipro started on 11/30 was stopped on 12/08. clean and dry site saturating well on 7L O2 via trach collar No blood tinged secretions noted Bronchial washing grew Pseudomonas ID consult - Dr. Armstrong - help appreciated Working on getting portable suctioning for family to practice Status: Acute (4) CAD (coronary artery disease) Assessment & Plan: cardiac stents on 06/13/15. Continue Lisinopril 5mg PO daily Continue Plavix 75mg PO daily Continue ASA 325mg PO daily-currently held due to recent trach bleeding Status: Chronic (5) Seizures Assessment & Plan: Continue dilantin 100mg via PEG TID Status: Chronic (6) Bed sore Assessment & Plan: Stage II 0.5cm x 2cm sacral ulcer Continue wound care, sensicare and medihoney. Continue repositioning of patient q2H. dolphin mattress. Heel air boots. Status: Acute (7) Prophylactic measure Assessment & Plan: Lovenox 40 SC daily Pepcid 20 mg PO BID [facility] Status: Acute <Donnell Ying - Last Filed: 12/24/15 17:31> Objective - Vital Signs/Intake and Output Vital Signs (last 24 hours): Temp Pulse Resp BP Pulse Ox 97.9 F 88 20 122/85 97 12/24/15 13:51 12/24/15 13:51 12/24/15 13:51 12/24/15 13:51 12/24/15 13:51 Intake and Output: 12/24/15 12/24/15 06:59 18:59 Intake Total 1900 650 Output Total 1950 700 Balance -50 -50 - Medications Medications: Current Medications Aspirin (Aspirin) 325 mg PO DAILY [facility] Last Admin: 11/23/15 09:42 Dose: 325 mg Clopidogrel Bisulfate (Plavix) 75 mg PO DAILY [facility] Last Admin: 12/24/15 10:56 Dose: 75 mg Famotidine (Pepcid) 20 mg PO BID [facility] Last Admin: 12/24/15 10:56 Dose: 20 mg Piperacillin Sod/Tazobactam Sod (Zosyn 3.375 Gm Iv Premix) 50 mls @ 100 mls/hr IVPB Q6H [facility] Last Admin: 12/24/15 12:15 Dose: 100 mls/hr Lisinopril (Zestril) 5 mg PO DAILY [facility] Last Admin: 12/24/15 10:56 Dose: 5 mg Oxybutynin Chloride (Ditropan Tab) 5 mg PO TID [facility] Last Admin: 12/24/15 14:12 Dose: 5 mg Phenytoin (Dilantin) 100 mg PEG TID [facility] Last Admin: 12/24/15 14:12 Dose: 100 mg Polyethylene Glycol (Miralax) 17 gm PEG BID [facility] Last Admin: 08/21/15 11:26 Dose: Not Given - Labs Labs: 12/24/15 07:18 12/24/15 07:18 PT 10.6 SECONDS (9.7-12.2) 11/24/15 14:10 INR 1.0 11/24/15 14:10 APTT 25 SECONDS (21-34) 11/24/15 14:10 Attending/Attestation - Attestation I have personally seen and examined this patient.: Yes I have fully participated in the care of the patient.: Yes I have reviewed all pertinent clinical information, including history, physical exam and plan: Yes Notes (Text): 12/24/15 17:29 Patient seen and examined at bedside with the resident. For his catheter has been inserted at the site of PEG tube. Catheter is working and is being used for feeding and medication. Will discuss with the surgery regarding plan for insertion of the PEG tube. Continue IV antibiotics the for UTI."
[2015-12-24 08:15] LABS: ALBUMIN 3.6 g/dL (3.5-5.0)
[2015-12-24 08:18] LABS: AST/SGOT 23 U/L (17-59); GFR NON-AFRICAN AMERICAN > 60
[2015-12-24 08:19] LABS: ALB/GLOB RATIO 0.9 (1.0-2.1); ALT/SGPT 37 U/L (21-72); BLOOD UREA NITROGEN 17 mg/dL (9-20); CALCIUM 8.7 mg/dL (8.4-10.2)
[2015-12-24 08:44] LABS: BASOPHIL 1 % (0-2); EOSINOPHIL 17 % (0-4); LYMPHOCYTE 19 % (20-40); MONOCYTE 12 % (0-10); NEUTROPHIL 51 % (50-75); PLATELET ESTIMATE NORMAL (NORMAL); TOTAL CELLS COUNTED 100
[2015-12-24 08:45] LABS: TOXIC GRANULATION PRESENT
[2015-12-24] MEDS: Phenytoin 100 mg/4 ml Oral Susp UD PEG SCH ×3 (10:56→17:55)
[2015-12-24] MEDS: Enoxaparin 40 mg Syringe SC SCH (10:58)
--- NOTE | 2015-12-24 15:24 | CP.PCM.PN ---
Subjective - Date & Time of Evaluation Date of Evaluation: 12/24/15 Time of Evaluation: 07:00 - Subjective Subjective: Surgery Progress Note: Dr. Chan Patient seen and examined at bedside this AM. Patient has trach collar in place and is in no acute distress. Yoo in place at PEG tube insertion site. Yoo with no leaks and was being used for bolus feeds this AM. Not able to obtain ROS. Objective - Vital Signs/Intake and Output Vital Signs (last 24 hours): Temp Pulse Resp BP Pulse Ox 97.9 F 88 20 122/85 97 12/24/15 13:51 12/24/15 13:51 12/24/15 13:51 12/24/15 13:51 12/24/15 13:51 Intake and Output: 12/24/15 12/24/15 06:59 18:59 Intake Total 1900 Output Total 1950 300 Balance -50 -300 - Medications Medications: Current Medications Aspirin (Aspirin) 325 mg PO DAILY [facility] Last Admin: 11/23/15 09:42 Dose: 325 mg Clopidogrel Bisulfate (Plavix) 75 mg PO DAILY [facility] Last Admin: 12/24/15 10:56 Dose: 75 mg Famotidine (Pepcid) 20 mg PO BID [facility] Last Admin: 12/24/15 10:56 Dose: 20 mg Piperacillin Sod/Tazobactam Sod (Zosyn 3.375 Gm Iv Premix) 50 mls @ 100 mls/hr IVPB Q6H [facility] Last Admin: 12/24/15 12:15 Dose: 100 mls/hr Lisinopril (Zestril) 5 mg PO DAILY [facility] Last Admin: 12/24/15 10:56 Dose: 5 mg Oxybutynin Chloride (Ditropan Tab) 5 mg PO TID [facility] Last Admin: 12/24/15 14:12 Dose: 5 mg Phenytoin (Dilantin) 100 mg PEG TID [facility] Last Admin: 12/24/15 14:12 Dose: 100 mg Polyethylene Glycol (Miralax) 17 gm PEG BID [facility] Last Admin: 08/21/15 11:26 Dose: Not Given - Labs Labs: 12/24/15 07:18 12/24/15 07:18 PT 10.6 SECONDS (9.7-12.2) 11/24/15 14:10 INR 1.0 11/24/15 14:10 APTT 25 SECONDS (21-34) 11/24/15 14:10 - Constitutional Appears: No Acute Distress - Head Exam Head Exam: NORMAL INSPECTION, NORMOCEPHALIC - Eye Exam Eye Exam: Normal appearance Pupil Exam: PERRL - ENT Exam ENT Exam: Mucous Membranes Moist - Neck Exam Additional comments: +trach collar in place. - Respiratory Exam Respiratory Exam: NORMAL BREATHING PATTERN - Cardiovascular Exam Cardiovascular Exam: REGULAR RHYTHM, +S1, +S2 - GI/Abdominal Exam GI & Abdominal Exam: Soft, Hypoactive Bowel Sounds - Neurological Exam Neurological Exam: Altered - Skin Skin Exam: Dry, Normal Color Assessment and Plan - Assessment and Plan (Free Text) Assessment: 65yo M s/p tracheostomy and PEG tube placement after cardiac arrest with anoxic brain injury in May 2015. PEG tube came out of place 12/23/15. Continue with feeds via Yoo inserted in PEG tube site. No leaks noted. If needed, a larger diameter Yoo may be used. Continue with feeds. No plan for PEG replacement. Discussed plan with Dr. Rocio Wagner, PGY1 (6) Seizures (7) Deep tissue injury - Assessment and Plan (Free Text) Assessment: Continue with feeds via Yoo inserted in PEG tube site. No leaks noted. If needed, a larger diameter Yoo may be used. Continue with feeds. No plan for PEG replacement. Discussed plan with Dr. Rocio Wagner, PGY1
[2015-12-25] MEDS: Piperacill/Tazo 3.375gm in Dex 50 ML IVPB SCH ×4 (00:03→18:07)
[2015-12-25 07:02] LABS: HEMOGLOBIN 11.4 g/dL (12.0-18.0); MEAN CELL VOLUME 94.3 fL (80.0-94.0); MEAN CORPUSCULAR HEMOGLOBIN 31.1 pg (27.0-31.0); MEAN PLATELET VOLUME 7.7 fL (7.2-11.7); RBC 3.65 Mil/uL (4.40-5.90); RED CELL DISTRIBUTION WIDTH 14.7 % (11.5-14.5)
[2015-12-25] MEDS: Phenytoin 100 mg/4 ml Oral Susp UD PEG SCH ×3 (11:07→18:07)
--- NOTE | 2015-12-25 11:08 | CP.PCM.PN ---
Subjective - Date & Time of Evaluation Date of Evaluation: 12/25/15 Time of Evaluation: 07:00 - Subjective Subjective: Surgery Progress Note: Dr. Chan Patient seen and examined at bedside this morning. Patient is at baseline, s/p anoxic brain injury. No response to verbal stimuli. Yoo catheter in place for feeds. No leaks noted. Unable to provide ROS. Objective - Vital Signs/Intake and Output Vital Signs (last 24 hours): Temp Pulse Resp BP Pulse Ox 98.1 F 102 H 20 136/76 100 12/24/15 21:00 12/24/15 21:00 12/24/15 21:00 12/25/15 06:00 12/24/15 21:00 Intake and Output: 12/25/15 12/25/15 06:59 18:59 Intake Total 1220 Output Total 1800 Balance -580 - Medications Medications: Current Medications Aspirin (Aspirin) 325 mg PO DAILY [facility] Last Admin: 11/23/15 09:42 Dose: 325 mg Clopidogrel Bisulfate (Plavix) 75 mg PO DAILY [facility] Last Admin: 12/24/15 10:56 Dose: 75 mg Famotidine (Pepcid) 20 mg PO BID [facility] Last Admin: 12/24/15 17:55 Dose: 20 mg Piperacillin Sod/Tazobactam Sod (Zosyn 3.375 Gm Iv Premix) 50 mls @ 100 mls/hr IVPB Q6H [facility] Last Admin: 12/25/15 05:17 Dose: 100 mls/hr Lisinopril (Zestril) 5 mg PO DAILY [facility] Last Admin: 12/24/15 10:56 Dose: 5 mg Oxybutynin Chloride (Ditropan Tab) 5 mg PO TID [facility] Last Admin: 12/24/15 17:55 Dose: 5 mg Phenytoin (Dilantin) 100 mg PEG TID [facility] Last Admin: 12/24/15 17:55 Dose: 100 mg Polyethylene Glycol (Miralax) 17 gm PEG BID [facility] Last Admin: 08/21/15 11:26 Dose: Not Given - Labs Labs: 12/25/15 06:50 12/24/15 07:18 PT 10.6 SECONDS (9.7-12.2) 11/24/15 14:10 INR 1.0 11/24/15 14:10 APTT 25 SECONDS (21-34) 11/24/15 14:10 - Constitutional Appears: No Acute Distress - Head Exam Head Exam: NORMAL INSPECTION, NORMOCEPHALIC - Eye Exam Eye Exam: Normal appearance - ENT Exam ENT Exam: Mucous Membranes Moist - Respiratory Exam Respiratory Exam: Clear to Ausculation Bilateral, NORMAL BREATHING PATTERN - Cardiovascular Exam Cardiovascular Exam: REGULAR RHYTHM, +S1, +S2 - GI/Abdominal Exam GI & Abdominal Exam: Soft. absent: Distended, Rigid Additional comments: Yoo cath in place at PEG tube insertion site. - Extremities Exam Extremities Exam: Normal Inspection - Neurological Exam Neurological Exam: Altered - Skin Skin Exam: Normal Color, Warm Assessment and Plan - Assessment and Plan (Free Text) Assessment: 65yo M s/p tracheostomy and PEG tube placement after cardiac arrest with anoxic brain injury in May 2015. PEG tube came out of place 12/23/15. Yoo catheter inserted. Plan: -Yoo in place and functioning. No leaks noted. -If needed, a larger diameter Yoo may be used. -Continue with bolus feeds. -Surgery will sign off. Please reconsult as needed. -D/W Dr. Chan. Mariella Wagner, PGY1
--- NOTE | 2015-12-25 17:04 | CP.PCM.PN ---
"<Howard Lopez - Last Filed: 12/25/15 17:01> Subjective - Date & Time of Evaluation Date of Evaluation: 12/25/15 Time of Evaluation: 09:17 - Subjective Subjective: PGY1 Medicine Progress Note | Dr. Demetrice Ying's Service Pt. seen and examined at bedside. No clinical change at the time of exam. Pt. unresponsive and non-verbal s/p anoxic brain injury making ROS unobtainable. Objective - Vital Signs/Intake and Output Vital Signs (last 24 hours): Temp Pulse Resp BP Pulse Ox 98.3 F 87 20 156/88 H 98 12/25/15 14:00 12/25/15 14:00 12/25/15 14:00 12/25/15 14:00 12/25/15 14:00 Intake and Output: 12/25/15 12/25/15 06:59 18:59 Intake Total 1220 Output Total 1800 550 Balance -580 -550 - Medications Medications: Current Medications Aspirin (Aspirin) 325 mg PO DAILY [facility] Last Admin: 11/23/15 09:42 Dose: 325 mg Clopidogrel Bisulfate (Plavix) 75 mg PO DAILY [facility] Last Admin: 12/25/15 11:08 Dose: 75 mg Famotidine (Pepcid) 20 mg PO BID [facility] Last Admin: 12/25/15 11:07 Dose: 20 mg Piperacillin Sod/Tazobactam Sod (Zosyn 3.375 Gm Iv Premix) 50 mls @ 100 mls/hr IVPB Q6H [facility] Last Admin: 12/25/15 11:15 Dose: 100 mls/hr Lisinopril (Zestril) 5 mg PO DAILY [facility] Last Admin: 12/25/15 11:08 Dose: 5 mg Oxybutynin Chloride (Ditropan Tab) 5 mg PO TID [facility] Last Admin: 12/25/15 13:25 Dose: 5 mg Phenytoin (Dilantin) 100 mg PEG TID [facility] Last Admin: 12/25/15 13:25 Dose: 100 mg Polyethylene Glycol (Miralax) 17 gm PEG BID [facility] Last Admin: 08/21/15 11:26 Dose: Not Given - Labs Labs: 12/25/15 06:50 12/24/15 07:18 PT 10.6 SECONDS (9.7-12.2) 11/24/15 14:10 INR 1.0 11/24/15 14:10 APTT 25 SECONDS (21-34) 11/24/15 14:10 - Constitutional Appears: Non-toxic, Chronically Ill - Head Exam Head Exam: ATRAUMATIC, NORMOCEPHALIC - Eye Exam Eye Exam: absent: Scleral icterus - ENT Exam ENT Exam: Mucous Membranes Moist Additional comments: trach collar - Respiratory Exam Respiratory Exam: Clear to Ausculation Bilateral. absent: Rales, Rhonchi, Wheezes - Cardiovascular Exam Cardiovascular Exam: REGULAR RHYTHM, +S1, +S2. absent: Gallop, Rubs, Murmur - GI/Abdominal Exam GI & Abdominal Exam: Soft. absent: Distended Additional comments: PEG tube replaced by baker catheter. Dressings are dry/clean/intact - Extremities Exam Extremities Exam: absent: Pedal Edema - Neurological Exam Neurological Exam: Altered - Skin Skin Exam: Dry, Warm Assessment and Plan - Assessment and Plan (Free Text) Assessment: (1) Urinary tract infection Assessment & Plan: repeat urine culture ordered 12/19/15 were positive for proteus mirabilis. sensitive to zosyn. Continue Zosyn 3.375gm IVPB Q6H x7 days (day 5) Ditropan 5mg PEG TID for leakage around catheter Urology consult - Dr. Oropeza - help appreciated ID on board - Dr. Armstrong - help apreciated Status: Acute (2) Anoxic encephalopathy Assessment & Plan: No acute change in mental status GCS 8 E4V1M3 patient with trach in place. Patient with baker catheter tube in place of PEG tube that fell out yesterday. As per Dr. Chan, OK to use baker tube for now. As per Dr. Chan, baker in place, functioning without evidence of leakage. Surgery signed off. Pending placement training family in how to take care of patient Status: Chronic (3) Respiratory failure Assessment & Plan: Trach collar in place. Sputum culture 12/06 + pseudomonas: probably colonization. afebrile. normal white count. CXR without infiltrates. No antibiotics for now per Dr. Armstrong tracheostomy with tube change by Dr. Chan on 11/27/15 CXR 12/08--> Tracheostomy tube appears deviated to the left which may be related to patient positioning. Clinical correlation as this does not project over the midline trachea. Bibasilar atelectasis. Mild stable nodularity at the right lung base. (see full report) Cipro started on 11/30 was stopped on 12/08. clean and dry site saturating well on 7L O2 via trach collar No blood tinged secretions noted Bronchial washing grew Pseudomonas ID consult - Dr. Armstrong - help appreciated Working on getting portable suctioning for family to practice Status: Acute (4) CAD (coronary artery disease) Assessment & Plan: cardiac stents on 06/13/15. Continue Lisinopril 5mg PO daily Continue Plavix 75mg PO daily Continue ASA 325mg PO daily-currently held due to recent trach bleeding Status: Chronic (5) Seizures Assessment & Plan: Continue dilantin 100mg via PEG TID Status: Chronic (6) Bed sore Assessment & Plan: Stage II 0.5cm x 2cm sacral ulcer Continue wound care, sensicare and medihoney. Continue repositioning of patient q2H. dolphin mattress. Heel air boots. Status: Acute (7) Prophylactic measure Assessment & Plan: Lovenox 40 SC daily Pepcid 20 mg PO BID SCDs Status: Acute <Donnell Ying M - Last Filed: 12/25/15 17:17> Objective - Vital Signs/Intake and Output Vital Signs (last 24 hours): Temp Pulse Resp BP Pulse Ox 98.3 F 87 20 156/88 H 98 12/25/15 14:00 12/25/15 14:00 12/25/15 14:00 12/25/15 14:00 12/25/15 14:00 Intake and Output: 12/25/15 12/25/15 06:59 18:59 Intake Total 1220 Output Total 1800 550 Balance -580 -550 - Medications Medications: Current Medications Aspirin (Aspirin) 325 mg PO DAILY [facility] Last Admin: 11/23/15 09:42 Dose: 325 mg Clopidogrel Bisulfate (Plavix) 75 mg PO DAILY [facility] Last Admin: 12/25/15 11:08 Dose: 75 mg Famotidine (Pepcid) 20 mg PO BID [facility] Last Admin: 12/25/15 11:07 Dose: 20 mg Piperacillin Sod/Tazobactam Sod (Zosyn 3.375 Gm Iv Premix) 50 mls @ 100 mls/hr IVPB Q6H [facility] Last Admin: 12/25/15 11:15 Dose: 100 mls/hr Lisinopril (Zestril) 5 mg PO DAILY [facility] Last Admin: 12/25/15 11:08 Dose: 5 mg Oxybutynin Chloride (Ditropan Tab) 5 mg PO TID [facility] Last Admin: 12/25/15 13:25 Dose: 5 mg Phenytoin (Dilantin) 100 mg PEG TID [facility] Last Admin: 12/25/15 13:25 Dose: 100 mg Polyethylene Glycol (Miralax) 17 gm PEG BID [facility] Last Admin: 08/21/15 11:26 Dose: Not Given - Labs Labs: 12/25/15 06:50 12/24/15 07:18 PT 10.6 SECONDS (9.7-12.2) 11/24/15 14:10 INR 1.0 11/24/15 14:10 APTT 25 SECONDS (21-34) 11/24/15 14:10 Attending/Attestation - Attestation I have personally seen and examined this patient.: Yes I have fully participated in the care of the patient.: Yes I have reviewed all pertinent clinical information, including history, physical exam and plan: Yes Notes (Text): 12/25/15 17:15 Patient was seen and examined at bedside with the resident. No change in clinical condition. Continue current management. Frequent turning and positioning. Continue IV antibiotics for UTI. Discussed discussed with surgery for possible PEG tube placement if needed."
[2015-12-26] MEDS: Piperacill/Tazo 3.375gm in Dex 50 ML IVPB SCH ×4 (00:30→17:31)
[2015-12-26 08:48] LABS: BASO % 0.5 % (0.0-2.0); EOS # 1.9 K/uL (0.0-0.7); EOS % 21.7 % (0.0-4.0); HEMOGLOBIN 12.3 g/dL (12.0-18.0); LYMPH # 1.4 K/uL (1.0-4.3); LYMPH % 15.9 % (20.0-40.0); MEAN CELL VOLUME 94.5 fL (80.0-94.0); MEAN CORPUSCULAR HEMOGLOBIN 30.5 pg (27.0-31.0); MEAN CORPUSCULAR HGB CONC 32.3 g/dL (33.0-37.0); MEAN PLATELET VOLUME 8.1 fL (7.2-11.7); MONO # 0.9 K/uL (0.0-0.8); MONO % 10.1 % (0.0-10.0); NEUT # 4.6 K/uL (1.8-7.0); NEUT % 51.8 % (50.0-75.0); NRBC % 0.1 % (0.0-2.0); PLATELET COUNT 327 K/uL (130-400); RBC 4.02 Mil/uL (4.40-5.90); RED CELL DISTRIBUTION WIDTH 14.9 % (11.5-14.5); WHITE BLOOD COUNT 8.9 K/uL (4.8-10.8)
[2015-12-26 08:58] LABS: GFR NON-AFRICAN AMERICAN > 60
[2015-12-26 08:59] LABS: BLOOD UREA NITROGEN 15 mg/dL (9-20); CALCIUM 8.9 mg/dL (8.4-10.2)
--- NOTE | 2015-12-26 09:56 | CP.PCM.PN ---
"<Howard Lopez - Last Filed: 12/26/15 17:20> Subjective - Date & Time of Evaluation Date of Evaluation: 12/26/15 Time of Evaluation: 09:22 - Subjective Subjective: PGY1 Medicine Progress Note | Dr. Demetrice Ying's Service Pt. seen and examined at bedside. At the time of exam, pt. was in bed in NAD. No change in clinical status s/p anoxi brain injury. Pt. still unresponsive to tactile/painful/verbal, ROS unobtainable. Per RN, olivia (that replaced PEG tube) still operational and being used. Objective - Vital Signs/Intake and Output Vital Signs (last 24 hours): Temp Pulse Resp BP Pulse Ox 98.8 F 97 H 20 121/72 98 12/26/15 06:00 12/26/15 06:00 12/26/15 06:00 12/26/15 06:00 12/26/15 06:00 Intake and Output: 12/26/15 12/26/15 06:59 18:59 Intake Total 1640 Output Total 1850 Balance -1850 1640 - Medications Medications: Current Medications Aspirin (Aspirin) 325 mg PO DAILY [facility] Last Admin: 11/23/15 09:42 Dose: 325 mg Clopidogrel Bisulfate (Plavix) 75 mg PO DAILY [facility] Last Admin: 12/25/15 11:08 Dose: 75 mg Famotidine (Pepcid) 20 mg PO BID [facility] Last Admin: 12/25/15 18:07 Dose: 20 mg Piperacillin Sod/Tazobactam Sod (Zosyn 3.375 Gm Iv Premix) 50 mls @ 100 mls/hr IVPB Q6H [facility] Last Admin: 12/26/15 05:15 Dose: 100 mls/hr Lisinopril (Zestril) 5 mg PO DAILY [facility] Last Admin: 12/25/15 11:08 Dose: 5 mg Oxybutynin Chloride (Ditropan Tab) 5 mg PO TID [facility] Last Admin: 12/25/15 18:06 Dose: 5 mg Phenytoin (Dilantin) 100 mg PEG TID [facility] Last Admin: 12/25/15 18:07 Dose: 100 mg Polyethylene Glycol (Miralax) 17 gm PEG BID [facility] Last Admin: 08/21/15 11:26 Dose: Not Given - Labs Labs: 12/26/15 08:10 12/26/15 08:10 PT 10.6 SECONDS (9.7-12.2) 11/24/15 14:10 INR 1.0 11/24/15 14:10 APTT 25 SECONDS (21-34) 11/24/15 14:10 - Constitutional Appears: Non-toxic, No Acute Distress, Cachectic, Chronically Ill - Head Exam Head Exam: ATRAUMATIC, NORMOCEPHALIC - Eye Exam Eye Exam: absent: Scleral icterus - ENT Exam ENT Exam: Mucous Membranes Moist - Respiratory Exam Respiratory Exam: Clear to Ausculation Bilateral. absent: Rales, Rhonchi, Wheezes - Cardiovascular Exam Cardiovascular Exam: +S1, +S2. absent: Gallop, Rubs, Murmur - GI/Abdominal Exam GI & Abdominal Exam: Soft, Normal Bowel Sounds. absent: Distended Additional comments: baker tube in place, no leaking appreciated. - Extremities Exam Extremities Exam: absent: Pedal Edema - Back Exam Additional comments: sacral ulcer, stage II, non-open, cream has been applied. dark discoloration of buttocks and lower back present - Neurological Exam Neurological Exam: Altered - Skin Skin Exam: Dry, Warm Assessment and Plan - Assessment and Plan (Free Text) Assessment: (1) Urinary tract infection Assessment & Plan: 2/3: urine culture from 12/23/15 was negative. Will discontinue Zosyn 3.375gm IVPB Q6H x7 days (day 7) today Ditropan 5mg PEG TID for leakage around catheter Urology consult - Dr. Oropeza - help appreciated ID on board - Dr. Armstrong - help appreciated Status: Acute (2) Anoxic encephalopathy Assessment & Plan: 2/3: mental status unchanged. baker catheter being used for tube feedings (per RN, functioning) GCS 8 E4V1M3 patient with trach in place. Patient with baker catheter tube in place of PEG tube that fell out yesterday. As per Dr. Chan, OK to use baker tube for now. As per Dr. Chan, baker in place, functioning without evidence of leakage. Surgery signed off. Pending placement training family in how to take care of patient Status: Chronic (3) Respiratory failure Assessment & Plan: 2/3: per RN, thick secretions this morning. Saturating well on trach collar. Trach collar in place. Sputum culture 12/06 + pseudomonas: probably colonization. afebrile. normal white count. CXR without infiltrates. No antibiotics for now per Dr. Armstrong tracheostomy with tube change by Dr. Chan on 11/27/15 CXR 12/08--> Tracheostomy tube appears deviated to the left which may be related to patient positioning. Clinical correlation as this does not project over the midline trachea. Bibasilar atelectasis. Mild stable nodularity at the right lung base. (see full report) Cipro started on 11/30 was stopped on 12/08. clean and dry site saturating well on 7L O2 via trach collar No blood tinged secretions noted Bronchial washing grew Pseudomonas ID consult - Dr. Armstrong - help appreciated Working on getting portable suctioning for family to practice Status: Acute (4) CAD (coronary artery disease) Assessment & Plan: cardiac stents on 06/13/15. Continue Lisinopril 5mg PO daily Continue Plavix 75mg PO daily Continue ASA 325mg PO daily-currently held due to recent trach bleeding Status: Chronic (5) Seizures Assessment & Plan: Continue dilantin 100mg via PEG TID Status: Chronic (6) Bed sore Assessment & Plan: 2/: improving sacral ulcer. Stage II 0.5cm x 1.5cm Continue wound care, sensicare and medihoney. Continue repositioning of patient q2H. dolphin mattress. Heel air boots. Status: Acute (7) Prophylactic measure Assessment & Plan: Lovenox 40 SC daily Pepcid 20 mg PO BID SCDs Status: Acute <Donnell Ying M - Last Filed: 12/27/15 09:16> Objective - Vital Signs/Intake and Output Vital Signs (last 24 hours): Temp Pulse Resp BP Pulse Ox 98.8 F 96 H 18 142/81 99 12/27/15 05:43 12/27/15 08:00 12/27/15 05:43 12/27/15 05:43 12/27/15 05:43 Intake and Output: 12/27/15 12/27/15 06:59 18:59 Intake Total 1000 Output Total 1050 Balance -1050 1000 - Medications Medications: Current Medications Aspirin (Aspirin) 325 mg PO DAILY [facility] Last Admin: 11/23/15 09:42 Dose: 325 mg Clopidogrel Bisulfate (Plavix) 75 mg PO DAILY [facility] Last Admin: 12/26/15 11:15 Dose: 75 mg Enoxaparin Sodium (Lovenox) 40 mg SC DAILY [facility] Last Admin: 12/26/15 11:21 Dose: 40 mg Famotidine (Pepcid) 20 mg PO BID [facility] Last Admin: 12/26/15 17:32 Dose: 20 mg Piperacillin Sod/Tazobactam Sod (Zosyn 3.375 Gm Iv Premix) 50 mls @ 100 mls/hr IVPB Q6H [facility] Last Admin: 12/27/15 05:30 Dose: 100 mls/hr Lisinopril (Zestril) 5 mg PO DAILY [facility] Last Admin: 12/26/15 11:15 Dose: 5 mg Oxybutynin Chloride (Ditropan Tab) 5 mg PO TID [facility] Last Admin: 12/26/15 17:32 Dose: 5 mg Phenytoin (Dilantin) 100 mg PEG TID [facility] Last Admin: 12/26/15 17:32 Dose: 100 mg Polyethylene Glycol (Miralax) 17 gm PEG BID [facility] Last Admin: 08/21/15 11:26 Dose: Not Given - Labs Labs: 12/26/15 08:10 12/26/15 08:10 PT 10.6 SECONDS (9.7-12.2) 11/24/15 14:10 INR 1.0 11/24/15 14:10 APTT 25 SECONDS (21-34) 11/24/15 14:10 Attending/Attestation - Attestation I have personally seen and examined this patient.: Yes I have fully participated in the care of the patient.: Yes I have reviewed all pertinent clinical information, including history, physical exam and plan: Yes Notes (Text): 12/26/15 18:15 Patient was seen and examined at the bedside. Patient is completed the the course of antibiotics for UTI. We will continue the current management. No change in clinical condition."
[2015-12-26 10:03] LABS: BASOPHIL 1 % (0-2); EOSINOPHIL 19 % (0-4); LYMPHOCYTE 15 % (20-40); MONOCYTE 8 % (0-10); NEUTROPHIL 57 % (50-75); TOTAL CELLS COUNTED 100
[2015-12-26 10:04] LABS: ANISOCYTOSIS SLIGHT; HYPOCHROMIC SLIGHT; PLATELET ESTIMATE NORMAL (NORMAL); POIKILOCYTOSIS SLIGHT; POLYCHROMIC SLIGHT
[2015-12-26] MEDS: Phenytoin 100 mg/4 ml Oral Susp UD PEG SCH ×3 (11:15→17:32)
[2015-12-26] MEDS: Enoxaparin 40 mg Syringe SC SCH (11:21)
[2015-12-27] MEDS: Piperacill/Tazo 3.375gm in Dex 50 ML IVPB SCH ×5 (05:30→17:28)
[2015-12-27] MEDS: Enoxaparin 40 mg Syringe SC SCH (09:15)
[2015-12-27] MEDS: Phenytoin 100 mg/4 ml Oral Susp UD PEG SCH ×3 (09:15→17:26)
--- NOTE | 2015-12-27 14:38 | CP.PCM.PN ---
"<Howard Lpoez - Last Filed: 12/27/15 20:29> Subjective - Date & Time of Evaluation Date of Evaluation: 12/27/15 Time of Evaluation: 10:00 - Subjective Subjective: PGY1 Medicine Progress Note | Dr. Demetrice Ying's Service Pt. seen and examined at bedside. At the time of exam, patient was in bed in NAD. Clinical status unchanged. Pt. had lots of thick secretions where were suctioned. Objective - Vital Signs/Intake and Output Vital Signs (last 24 hours): Temp Pulse Resp BP Pulse Ox 98.1 F 113 H 20 133/86 98 12/27/15 13:23 12/27/15 13:23 12/27/15 13:23 12/27/15 13:23 12/27/15 13:23 Intake and Output: 12/27/15 12/27/15 06:59 18:59 Intake Total 1000 Output Total 1050 Balance -1050 1000 - Medications Medications: Current Medications Aspirin (Aspirin) 325 mg PO DAILY [facility] Last Admin: 11/23/15 09:42 Dose: 325 mg Clopidogrel Bisulfate (Plavix) 75 mg PO DAILY [facility] Last Admin: 12/27/15 09:16 Dose: 75 mg Enoxaparin Sodium (Lovenox) 40 mg SC DAILY [facility] Last Admin: 12/27/15 09:15 Dose: 40 mg Famotidine (Pepcid) 20 mg PO BID [facility] Last Admin: 12/27/15 09:15 Dose: 20 mg Piperacillin Sod/Tazobactam Sod (Zosyn 3.375 Gm Iv Premix) 50 mls @ 100 mls/hr IVPB Q6H [facility] Last Admin: 12/27/15 13:00 Dose: 100 mls/hr Lisinopril (Zestril) 5 mg PO DAILY [facility] Last Admin: 12/27/15 09:15 Dose: 5 mg Oxybutynin Chloride (Ditropan Tab) 5 mg PO TID [facility] Last Admin: 12/27/15 13:14 Dose: 5 mg Phenytoin (Dilantin) 100 mg PEG TID [facility] Last Admin: 12/27/15 13:14 Dose: 100 mg Polyethylene Glycol (Miralax) 17 gm PEG BID [facility] Last Admin: 08/21/15 11:26 Dose: Not Given - Labs Labs: 12/26/15 08:10 12/26/15 08:10 PT 10.6 SECONDS (9.7-12.2) 11/24/15 14:10 INR 1.0 11/24/15 14:10 APTT 25 SECONDS (21-34) 11/24/15 14:10 - Additional Findings Additional findings: - Constitutional Appears: Non-toxic, No Acute Distress, Cachectic, Chronically Ill - Head Exam Head Exam: ATRAUMATIC, NORMOCEPHALIC - Eye Exam Eye Exam: absent: Scleral icterus - ENT Exam ENT Exam: Mucous Membranes Moist Additional comments: Trach collar in place, thick secretions suctioned - Respiratory Exam Respiratory Exam: Clear to Ausculation Bilateral. absent: Rales, Rhonchi, Wheezes - Cardiovascular Exam Cardiovascular Exam: +S1, +S2. absent: Gallop, Rubs, Murmur - GI/Abdominal Exam GI & Abdominal Exam: Soft, Normal Bowel Sounds. absent: Distended Additional comments: baker tube in place, no leaking appreciated. - Extremities Exam Extremities Exam: absent: Pedal Edema - Neurological Exam Neurological Exam: Altered - Skin Skin Exam: Dry, Warm Assessment and Plan - Assessment and Plan (Free Text) Assessment: (1) Urinary tract infection Assessment & Plan: 12/27: Off Zosyn /3: urine culture from 12/23/15 was negative. Will discontinue Zosyn 3.375gm IVPB Q6H x7 days (day 7) today Ditropan 5mg PEG TID for leakage around catheter Urology consult - Dr. Oropeza - help appreciated ID on board - Dr. Armstrong - help appreciated Status: Acute (2) Anoxic encephalopathy Assessment & Plan: 12/27: mental status unchanged GCS 8 E4V1M3 patient with trach in place. Patient with baker catheter tube in place of PEG tube that fell out yesterday. As per Dr. Chan, OK to use baker tube for now. As per Dr. Chan, baker in place, functioning without evidence of leakage. Surgery signed off. Pending placement training family in how to take care of patient Status: Chronic (3) Respiratory failure Assessment & Plan: 12/27: thick secretions suctioned this morning 23: per RN, thick secretions this morning. Saturating well on trach collar. Trach collar in place. Sputum culture 12/06 + pseudomonas: probably colonization. afebrile. normal white count. CXR without infiltrates. No antibiotics for now per Dr. Armstrong tracheostomy with tube change by Dr. Chan on 11/27/15 CXR 12/08--> Tracheostomy tube appears deviated to the left which may be related to patient positioning. Clinical correlation as this does not project over the midline trachea. Bibasilar atelectasis. Mild stable nodularity at the right lung base. (see full report) Cipro started on 11/30 was stopped on 12/08. clean and dry site saturating well on 7L O2 via trach collar No blood tinged secretions noted Bronchial washing grew Pseudomonas ID consult - Dr. Armstrong - help appreciated Working on getting portable suctioning for family to practice Status: Acute (4) CAD (coronary artery disease) Assessment & Plan: cardiac stents on 06/13/15. Continue Lisinopril 5mg PO daily Continue Plavix 75mg PO daily Continue ASA 325mg PO daily-currently held due to recent trach bleeding Status: Chronic (5) Seizures Assessment & Plan: Continue dilantin 100mg via PEG TID Status: Chronic (6) Bed sore Assessment & Plan: 2/3: improving sacral ulcer. Stage II 0.5cm x 1.5cm Continue wound care, sensicare and medihoney. Continue repositioning of patient q2H. dolphin mattress. Heel air boots. Status: Acute (7) Prophylactic measure Assessment & Plan: Lovenox 40 SC daily Pepcid 20 mg PO BID SCDs Status: Acute <StepanCarlos An M - Last Filed: 12/27/15 22:29> Objective - Vital Signs/Intake and Output Vital Signs (last 24 hours): Temp Pulse Resp BP Pulse Ox 98.3 F 77 18 111/74 99 12/27/15 21:24 12/27/15 21:24 12/27/15 21:24 12/27/15 21:24 12/27/15 21:24 Intake and Output: 12/27/15 12/28/15 18:59 06:59 Intake Total 2120 Output Total 400 Balance 1720 - Medications Medications: Current Medications Aspirin (Aspirin) 325 mg PO DAILY [facility] Last Admin: 11/23/15 09:42 Dose: 325 mg Clopidogrel Bisulfate (Plavix) 75 mg PO DAILY [facility] Last Admin: 12/27/15 09:16 Dose: 75 mg Enoxaparin Sodium (Lovenox) 40 mg SC DAILY [facility] Last Admin: 12/27/15 09:15 Dose: 40 mg Famotidine (Pepcid) 20 mg PO BID [facility] Last Admin: 12/27/15 17:26 Dose: 20 mg Lisinopril (Zestril) 5 mg PO DAILY [facility] Last Admin: 12/27/15 09:15 Dose: 5 mg Oxybutynin Chloride (Ditropan Tab) 5 mg PO TID [facility] Last Admin: 12/27/15 17:26 Dose: 5 mg Phenytoin (Dilantin) 100 mg PEG TID [facility] Last Admin: 12/27/15 17:26 Dose: 100 mg Polyethylene Glycol (Miralax) 17 gm PEG BID [facility] Last Admin: 08/21/15 11:26 Dose: Not Given - Labs Labs: 12/26/15 08:10 12/26/15 08:10 PT 10.6 SECONDS (9.7-12.2) 11/24/15 14:10 INR 1.0 11/24/15 14:10 APTT 25 SECONDS (21-34) 11/24/15 14:10 Attending/Attestation - Attestation I have personally seen and examined this patient.: Yes I have fully participated in the care of the patient.: Yes I have reviewed all pertinent clinical information, including history, physical exam and plan: Yes Notes (Text): 12/27/15 22:25 Patient seen and examined at bedside No change in clinical condition Frequent turn and position Frequent suctioning Discussed with staff Discussed with family at bedside"
[2015-12-28 08:04] LABS: BASO # 0.1 K/uL (0.0-0.2); BASO % 0.8 % (0.0-2.0); EOS # 1.7 K/uL (0.0-0.7); EOS % 16.9 % (0.0-4.0); HEMOGLOBIN 12.4 g/dL (12.0-18.0); LYMPH # 2.1 K/uL (1.0-4.3); LYMPH % 20.9 % (20.0-40.0); MEAN CELL VOLUME 94.7 fL (80.0-94.0); MEAN CORPUSCULAR HEMOGLOBIN 31.1 pg (27.0-31.0); MEAN CORPUSCULAR HGB CONC 32.8 g/dL (33.0-37.0); MEAN PLATELET VOLUME 8.3 fL (7.2-11.7); MONO # 0.9 K/uL (0.0-0.8); MONO % 8.7 % (0.0-10.0); NEUT # 5.4 K/uL (1.8-7.0); NEUT % 52.7 % (50.0-75.0); NRBC % 0.1 % (0.0-2.0); RBC 3.98 Mil/uL (4.40-5.90); RED CELL DISTRIBUTION WIDTH 14.8 % (11.5-14.5); WHITE BLOOD COUNT 10.1 K/uL (4.8-10.8)
[2015-12-28 08:18] LABS: ALBUMIN 3.9 g/dL (3.5-5.0)
[2015-12-28 08:21] LABS: GFR NON-AFRICAN AMERICAN > 60
[2015-12-28 08:22] LABS: ALT/SGPT 35 U/L (21-72); AST/SGOT 27 U/L (17-59); BLOOD UREA NITROGEN 16 mg/dL (9-20)
--- NOTE | 2015-12-28 09:57 | RAD ---
PROCEDURE: CHEST RADIOGRAPH, 1 VIEW HISTORY: peg tube placement COMPARISON: 12/08/2015 FINDINGS: LUNGS: Limited examination due to over penetration. Linear scar/atelectasis at both lung bases. No consolidation elsewhere. No pulmonary mass identified. PLEURA: No pneumothorax or pleural fluid seen. CARDIOVASCULAR: Normal heart size. Tracheostomy tube noted. OSSEOUS STRUCTURES: No significant abnormalities. VISUALIZED UPPER ABDOMEN: PEG tube is not identified in the image of upper abdomen. OTHER FINDINGS: None. IMPRESSION: PEG tube not identified. Tracheostomy tube noted. No active disease otherwise appreciated.
[2015-12-28] MEDS: Phenytoin 100 mg/4 ml Oral Susp UD PEG SCH ×3 (10:00→17:55)
--- NOTE | 2015-12-28 13:17 | CP.PCM.PN ---
"<Howard Lopez - Last Filed: 12/28/15 16:55> Subjective - Date & Time of Evaluation Date of Evaluation: 12/28/15 Time of Evaluation: 08:15 - Subjective Subjective: PGY1 Medicine Progress Note | Dr. Demetrice Ying's Service Pt. seen and examined at bedside. Clinical status unchanged. Unresponsive to tactile/verbal/painful stimuli. Per RN, baker was removed overnight and reinserted. Objective - Vital Signs/Intake and Output Vital Signs (last 24 hours): Temp Pulse Resp BP Pulse Ox 98.3 F 92 H 18 133/81 100 12/28/15 05:48 12/28/15 05:48 12/28/15 05:48 12/28/15 05:48 12/28/15 05:48 Intake and Output: 12/28/15 12/28/15 06:59 18:59 Intake Total 575 Output Total 1150 Balance -575 - Medications Medications: Current Medications Aspirin (Aspirin) 325 mg PO DAILY [facility] Last Admin: 11/23/15 09:42 Dose: 325 mg Clopidogrel Bisulfate (Plavix) 75 mg PO DAILY [facility] Last Admin: 12/27/15 09:16 Dose: 75 mg Enoxaparin Sodium (Lovenox) 40 mg SC DAILY [facility] Last Admin: 12/27/15 09:15 Dose: 40 mg Famotidine (Pepcid) 20 mg PO BID [facility] Last Admin: 12/27/15 17:26 Dose: 20 mg Lisinopril (Zestril) 5 mg PO DAILY [facility] Last Admin: 12/27/15 09:15 Dose: 5 mg Oxybutynin Chloride (Ditropan Tab) 5 mg PO TID [facility] Last Admin: 12/27/15 17:26 Dose: 5 mg Phenytoin (Dilantin) 100 mg PEG TID [facility] Last Admin: 12/27/15 17:26 Dose: 100 mg Polyethylene Glycol (Miralax) 17 gm PEG BID [facility] Last Admin: 08/21/15 11:26 Dose: Not Given - Labs Labs: 12/28/15 07:25 12/28/15 07:25 PT 10.6 SECONDS (9.7-12.2) 11/24/15 14:10 INR 1.0 11/24/15 14:10 APTT 25 SECONDS (21-34) 11/24/15 14:10 - Additional Findings Additional findings: - Constitutional Appears: Non-toxic, No Acute Distress, Cachectic, Chronically Ill - Head Exam Head Exam: ATRAUMATIC, NORMOCEPHALIC - Eye Exam Eye Exam: absent: Scleral icterus - ENT Exam ENT Exam: Mucous Membranes Moist Additional comments: Trach collar in place - Respiratory Exam Respiratory Exam: Clear to Ausculation Bilateral. absent: Rales, Rhonchi, Wheezes - Cardiovascular Exam Cardiovascular Exam: +S1, +S2. absent: Gallop, Rubs, Murmur - GI/Abdominal Exam GI & Abdominal Exam: Soft, Normal Bowel Sounds. absent: Distended - Extremities Exam Extremities Exam: absent: Pedal Edema - Neurological Exam Neurological Exam: Altered - Skin Skin Exam: Dry, Warm Assessment and Plan - Assessment and Plan (Free Text) Plan: (1) Urinary tract infection Assessment & Plan: 12/27: Off Zosyn 2/3: urine culture from 12/23/15 was negative. Will discontinue Zosyn 3.375gm IVPB Q6H x7 days (day 7) today Ditropan 5mg PEG TID for leakage around catheter Urology consult - Dr. Oropeza - help appreciated ID on board - Dr. Armstrong - help appreciated Status: Acute (2) Anoxic encephalopathy Assessment & Plan: 12/28: mental status unchanged; PEG tube placed at bedside by Dr. Chan. Abdominal X-ray showed PEG tube in position with contrast entering appropriately. PEG tube approved for use. GCS 8 [id number] patient with trach in place. Pending placement training family in how to take care of patient Status: Chronic (3) Respiratory failure Assessment & Plan: 12/27: tolerating trach collar /3: per RN, thick secretions this morning. Saturating well on trach collar. Trach collar in place. Sputum culture 12/06 + pseudomonas: probably colonization. afebrile. normal white count. CXR without infiltrates. No antibiotics for now per Dr. Armstrong tracheostomy with tube change by Dr. Chan on 11/27/15 CXR 12/08--> Tracheostomy tube appears deviated to the left which may be related to patient positioning. Clinical correlation as this does not project over the midline trachea. Bibasilar atelectasis. Mild stable nodularity at the right lung base. (see full report) Cipro started on 11/30 was stopped on 12/08. clean and dry site saturating well on 7L O2 via trach collar No blood tinged secretions noted Bronchial washing grew Pseudomonas ID consult - Dr. Armstrong - help appreciated Working on getting portable suctioning for family to practice Status: Acute (4) CAD (coronary artery disease) Assessment & Plan: cardiac stents on 06/13/15. Continue Lisinopril 5mg PO daily Continue Plavix 75mg PO daily Continue ASA 325mg PO daily-currently held due to recent trach bleeding Status: Chronic (5) Seizures Assessment & Plan: Continue dilantin 100mg via PEG TID Status: Chronic (6) Bed sore Assessment & Plan: /: improving sacral ulcer. Stage II 0.5cm x 1.5cm Continue wound care, sensicare and medihoney. Continue repositioning of patient q2H. dolphin mattress. Heel air boots. Status: Acute (7) Prophylactic measure Assessment & Plan: Lovenox 40 SC daily Pepcid 20 mg PO BID [facility] Status: Acute <Donnell Ying - Last Filed: 12/28/15 17:11> Objective - Vital Signs/Intake and Output Vital Signs (last 24 hours): Temp Pulse Resp BP Pulse Ox 98.5 F 86 24 119/83 97 12/28/15 13:41 12/28/15 13:41 12/28/15 13:41 12/28/15 13:41 12/28/15 13:41 Intake and Output: 12/28/15 12/28/15 06:59 18:59 Intake Total 575 Output Total 1150 Balance -575 - Medications Medications: Current Medications Aspirin (Aspirin) 325 mg PO DAILY [facility] Last Admin: 11/23/15 09:42 Dose: 325 mg Clopidogrel Bisulfate (Plavix) 75 mg PO DAILY [facility] Last Admin: 12/28/15 10:00 Dose: Not Given Enoxaparin Sodium (Lovenox) 40 mg SC DAILY [facility] Last Admin: 12/27/15 09:15 Dose: 40 mg Famotidine (Pepcid) 20 mg PO BID [facility] Last Admin: 12/28/15 10:00 Dose: Not Given Lisinopril (Zestril) 5 mg PO DAILY [facility] Last Admin: 12/28/15 10:00 Dose: Not Given Oxybutynin Chloride (Ditropan Tab) 5 mg PO TID [facility] Last Admin: 12/28/15 14:00 Dose: Not Given Phenytoin (Dilantin) 100 mg PEG TID [facility] Last Admin: 12/28/15 15:00 Dose: Not Given Polyethylene Glycol (Miralax) 17 gm PEG BID [facility] Last Admin: 08/21/15 11:26 Dose: Not Given - Labs Labs: 12/28/15 07:25 12/28/15 07:25 PT 10.6 SECONDS (9.7-12.2) 11/24/15 14:10 INR 1.0 11/24/15 14:10 APTT 25 SECONDS (21-34) 11/24/15 14:10 Attending/Attestation - Attestation I have personally seen and examined this patient.: Yes I have fully participated in the care of the patient.: Yes I have reviewed all pertinent clinical information, including history, physical exam and plan: Yes Notes (Text): 12/28/15 17:11 Patient seen and examined at bedside with the resident. Bedside and PEG tube insertion done by surgery today. PEG tube in place as per x-ray of the abdomen. Continue current management."
--- NOTE | 2015-12-28 14:33 | RAD ---
HISTORY: PEG tube placed COMPARISON: No prior. FINDINGS: BOWEL: Contrast, administered at bedside by a non radiologist, through the patient's PEG tube, is seen within the stomach and proximal duodenum. There is oral contrast seen within the colon as well, more dilute, likely from earlier upper GI series performed on 12/23/2015. No evidence of intraperitoneal extravasation. No evidence of bowel obstruction. BONES: Normal. OTHER FINDINGS: None. IMPRESSION: PEG tube appears to be in an appropriate position within the gastric lumen.
[2015-12-28] MEDS: Enoxaparin 40 mg Syringe SC SCH (17:57)
--- NOTE | 2015-12-29 04:28 | CP.PCM.PN ---
<Nely Pate - Last Filed: 12/29/15 04:24> Subjective - Date & Time of Evaluation Date of Evaluation: 12/29/15 Time of Evaluation: 04:24 - Subjective Subjective: Medicine Progress Note Patient seen and examined. No acute events overnight. Trach in place without secretions. Patient does not appear to be in acute distress. ROS could not be obtained. Objective - Vital Signs/Intake and Output Vital Signs (last 24 hours): Temp Pulse Resp BP Pulse Ox 98.0 F 93 H 18 131/85 97 12/28/15 21:41 12/28/15 21:41 12/28/15 21:41 12/28/15 21:41 12/28/15 21:41 Intake and Output: 12/28/15 12/29/15 18:59 06:59 Output Total 600 Balance -600 - Medications Medications: Current Medications Aspirin (Aspirin) 325 mg PO DAILY [facility] Last Admin: 11/23/15 09:42 Dose: 325 mg Clopidogrel Bisulfate (Plavix) 75 mg PO DAILY [facility] Last Admin: 12/28/15 10:00 Dose: Not Given Enoxaparin Sodium (Lovenox) 40 mg SC DAILY [facility] Last Admin: 12/28/15 17:57 Dose: 40 mg Famotidine (Pepcid) 20 mg PO BID [facility] Last Admin: 12/28/15 20:05 Dose: 20 mg Lisinopril (Zestril) 5 mg PO DAILY [facility] Last Admin: 12/28/15 10:00 Dose: Not Given Oxybutynin Chloride (Ditropan Tab) 5 mg PO TID [facility] Last Admin: 12/28/15 17:55 Dose: 5 mg Phenytoin (Dilantin) 100 mg PEG TID [facility] Last Admin: 12/28/15 17:55 Dose: 100 mg Polyethylene Glycol (Miralax) 17 gm PEG BID [facility] Last Admin: 08/21/15 11:26 Dose: Not Given - Labs Labs: 12/28/15 07:25 12/28/15 07:25 PT 10.6 SECONDS (9.7-12.2) 11/24/15 14:10 INR 1.0 11/24/15 14:10 APTT 25 SECONDS (21-34) 11/24/15 14:10 - Constitutional Appears: Cachectic, Chronically Ill - Head Exam Head Exam: ATRAUMATIC, NORMOCEPHALIC - ENT Exam ENT Exam: Mucous Membranes Dry - Respiratory Exam Respiratory Exam: Clear to Ausculation Bilateral, NORMAL BREATHING PATTERN. absent: Rales, Rhonchi, Wheezes, Respiratory Distress Additional comments: breathing on trach - Cardiovascular Exam Cardiovascular Exam: REGULAR RHYTHM, +S1, +S2 - GI/Abdominal Exam GI & Abdominal Exam: Soft, Normal Bowel Sounds. absent: Distended - Extremities Exam Extremities Exam: absent: Pedal Edema - Neurological Exam Neurological Exam: absent: Alert, Awake - Skin Skin Exam: Normal Color, Warm Assessment and Plan - Assessment and Plan (Free Text) Assessment: (1) Urinary tract infection Assessment & Plan: 12/29: Yoo catheter replaced yesterday. 12/27: Off Zosyn 12/26: urine culture from 12/23/15 was negative. Will discontinue Zosyn 3.375gm IVPB Q6H x7 days (day 7) today Ditropan 5mg PEG TID for leakage around catheter Urology consult - Dr. Oropeza - herbie appreciated ID on board - Dr. Armstrong - herbie appreciated Status: Acute (2) Anoxic encephalopathy Assessment & Plan: 12/29: No acute change in mental status. 12/28: mental status unchanged; PEG tube placed at bedside by Dr. Chan. Abdominal X-ray showed PEG tube in position with contrast entering appropriately. PEG tube approved for use. GCS 8 [id number] patient with trach in place. Pending placement training family in how to take care of patient Status: Chronic (3) Respiratory failure Assessment & Plan: 12/29: No acute changes. Trach in place. 12/27: tolerating trach collar 12/26: per RN, thick secretions this morning. Saturating well on trach collar. Trach collar in place. Sputum culture 12/06 + pseudomonas: probably colonization. afebrile. normal white count. CXR without infiltrates. No antibiotics for now per Dr. Armstrong tracheostomy with tube change by Dr. Chan on 11/27/15 CXR 12/08--> Tracheostomy tube appears deviated to the left which may be related to patient positioning. Clinical correlation as this does not project over the midline trachea. Bibasilar atelectasis. Mild stable nodularity at the right lung base. (see full report) Cipro started on 11/30 was stopped on 12/08. clean and dry site saturating well on 7L O2 via trach collar No blood tinged secretions noted Bronchial washing grew Pseudomonas ID consult - Dr. Armstrong - help appreciated Working on getting portable suctioning for family to practice Status: Acute (4) CAD (coronary artery disease) Assessment & Plan: cardiac stents on 06/13/15. Continue Lisinopril 5mg PO daily Continue Plavix 75mg PO daily Continue ASA 325mg PO daily-currently held due to recent trach bleeding Status: Chronic (5) Seizures Assessment & Plan: Continue dilantin 100mg via PEG TID Status: Chronic (6) Bed sore Assessment & Plan: sacral ulcer. Stage II 0.5cm x 1.5cm Continue wound care, sensicare and medihoney. Continue repositioning of patient q2H. dolphin mattress. Heel air boots. Status: Acute (7) Prophylactic measure Assessment & Plan: Lovenox 40 SC daily Pepcid 20 mg PO BID [facility] Status: Acute <Donnell Ying - Last Filed: 12/29/15 14:57> Objective - Vital Signs/Intake and Output Vital Signs (last 24 hours): Temp Pulse Resp BP Pulse Ox 99.6 F 123 H 20 168/78 H 99 12/29/15 14:00 12/29/15 14:00 12/29/15 14:00 12/29/15 14:00 12/29/15 14:00 Intake and Output: 12/29/15 12/29/15 06:59 18:59 Intake Total 900 Output Total 1000 Balance -100 - Medications Medications: Current Medications Aspirin (Aspirin) 325 mg PO DAILY [facility] Last Admin: 11/23/15 09:42 Dose: 325 mg Clopidogrel Bisulfate (Plavix) 75 mg PO DAILY [facility] Last Admin: 12/29/15 11:04 Dose: 75 mg Enoxaparin Sodium (Lovenox) 40 mg SC DAILY [facility] Last Admin: 12/29/15 11:03 Dose: 40 mg Famotidine (Pepcid) 20 mg PO BID [facility] Last Admin: 12/29/15 11:04 Dose: 20 mg Lisinopril (Zestril) 5 mg PO DAILY [facility] Last Admin: 12/29/15 11:04 Dose: 5 mg Oxybutynin Chloride (Ditropan Tab) 5 mg PO TID [facility] Last Admin: 12/29/15 11:04 Dose: 5 mg Phenytoin (Dilantin) 100 mg PEG TID [facility] Last Admin: 12/29/15 11:03 Dose: 100 mg Polyethylene Glycol (Miralax) 17 gm PEG BID [facility] Last Admin: 08/21/15 11:26 Dose: Not Given - Labs Labs: 12/28/15 07:25 12/28/15 07:25 PT 10.6 SECONDS (9.7-12.2) 11/24/15 14:10 INR 1.0 11/24/15 14:10 APTT 25 SECONDS (21-34) 11/24/15 14:10 Attending/Attestation - Attestation I have personally seen and examined this patient.: Yes I have fully participated in the care of the patient.: Yes I have reviewed all pertinent clinical information, including history, physical exam and plan: Yes Notes (Text): 12/29/15 14:57 Patient seen and examined at bedside with the resident. Family is present at bedside. No change in clinical condition. Status post replacement of the PEG tube yesterday. Functioning well. Continue current management.
[2015-12-29] MEDS: Enoxaparin 40 mg Syringe SC SCH (11:03)
[2015-12-29] MEDS: Phenytoin 100 mg/4 ml Oral Susp UD PEG SCH ×3 (11:03→17:33)
--- NOTE | 2015-12-30 01:05 | CP.PCM.PN ---
<Nely Pate - Last Filed: 12/30/15 01:03> Subjective - Date & Time of Evaluation Date of Evaluation: 12/30/15 Time of Evaluation: 01:03 - Subjective Subjective: Medicine Progress Note Patient seen and examined. No acute events or change in status. PEG tube in place, trach in place. ROS could not be obtained. Objective - Vital Signs/Intake and Output Vital Signs (last 24 hours): Temp Pulse Resp BP Pulse Ox 98.9 F 101 H 19 128/82 97 12/29/15 21:19 12/29/15 21:19 12/29/15 21:19 12/29/15 21:19 12/29/15 21:19 Intake and Output: 12/29/15 12/30/15 18:59 06:59 Output Total 200 200 Balance -200 -200 - Medications Medications: Current Medications Aspirin (Aspirin) 325 mg PO DAILY [facility] Last Admin: 11/23/15 09:42 Dose: 325 mg Clopidogrel Bisulfate (Plavix) 75 mg PO DAILY [facility] Last Admin: 12/29/15 11:04 Dose: 75 mg Enoxaparin Sodium (Lovenox) 40 mg SC DAILY [facility] Last Admin: 12/29/15 11:03 Dose: 40 mg Famotidine (Pepcid) 20 mg PO BID [facility] Last Admin: 12/29/15 17:33 Dose: 20 mg Lisinopril (Zestril) 5 mg PO DAILY [facility] Last Admin: 12/29/15 11:04 Dose: 5 mg Oxybutynin Chloride (Ditropan Tab) 5 mg PO TID [facility] Last Admin: 12/29/15 17:00 Dose: 5 mg Phenytoin (Dilantin) 100 mg PEG TID [facility] Last Admin: 12/29/15 17:33 Dose: 100 mg Polyethylene Glycol (Miralax) 17 gm PEG BID [facility] Last Admin: 08/21/15 11:26 Dose: Not Given - Labs Labs: 12/28/15 07:25 12/28/15 07:25 PT 10.6 SECONDS (9.7-12.2) 11/24/15 14:10 INR 1.0 11/24/15 14:10 APTT 25 SECONDS (21-34) 11/24/15 14:10 - Constitutional Appears: Cachectic, Chronically Ill - Head Exam Head Exam: ATRAUMATIC, NORMOCEPHALIC - ENT Exam ENT Exam: Mucous Membranes Moist - Respiratory Exam Respiratory Exam: Clear to Ausculation Bilateral, NORMAL BREATHING PATTERN. absent: Rales, Rhonchi, Wheezes, Respiratory Distress - Cardiovascular Exam Cardiovascular Exam: REGULAR RHYTHM, +S1, +S2 - GI/Abdominal Exam GI & Abdominal Exam: Soft, Normal Bowel Sounds. absent: Firm, Guarding - Extremities Exam Extremities Exam: absent: Pedal Edema - Neurological Exam Neurological Exam: absent: Alert, Awake - Skin Skin Exam: Warm Assessment and Plan - Assessment and Plan (Free Text) Assessment: (1) Urinary tract infection Assessment & Plan: 12/30: Yoo catheter in place 12/27: Off Zosyn 12/26: urine culture from 12/23/15 was negative. Will discontinue Zosyn 3.375gm IVPB Q6H x7 days (day 7) today Ditropan 5mg PEG TID for leakage around catheter Urology consult - Dr. Oropeza - herbie appreciated ID on board - Dr. Armstrong - herbie appreciated Status: Acute (2) Anoxic encephalopathy Assessment & Plan: 12/30: No acute change in mental status. 12/28: mental status unchanged; PEG tube placed at bedside by Dr. Chan. Abdominal X-ray showed PEG tube in position with contrast entering appropriately. PEG tube approved for use. GCS 8 [id number] patient with trach in place. Pending placement training family in how to take care of patient Status: Chronic (3) Respiratory failure Assessment & Plan: 12/30: No acute changes. Trach in place. 12/27: tolerating trach collar 12/26: per RN, thick secretions this morning. Saturating well on trach collar. Trach collar in place. Sputum culture 12/06 + pseudomonas: probably colonization. afebrile. normal white count. CXR without infiltrates. No antibiotics for now per Dr. Armstrong tracheostomy with tube change by Dr. Chan on 11/27/15 CXR 12/08--> Tracheostomy tube appears deviated to the left which may be related to patient positioning. Clinical correlation as this does not project over the midline trachea. Bibasilar atelectasis. Mild stable nodularity at the right lung base. (see full report) Cipro started on 11/30 was stopped on 12/08. clean and dry site saturating well on 7L O2 via trach collar No blood tinged secretions noted Bronchial washing grew Pseudomonas ID consult - Dr. Armstrong - help appreciated Working on getting portable suctioning for family to practice Status: Acute (4) CAD (coronary artery disease) Assessment & Plan: cardiac stents on 06/13/15. Continue Lisinopril 5mg PO daily Continue Plavix 75mg PO daily Continue ASA 325mg PO daily-currently held due to recent trach bleeding Status: Chronic (5) Seizures Assessment & Plan: Continue dilantin 100mg via PEG TID Status: Chronic (6) Bed sore Assessment & Plan: sacral ulcer. Stage II 0.5cm x 1.5cm Continue wound care, sensicare and medihoney. Continue repositioning of patient q2H. dolphin mattress. Heel air boots. Status: Acute (7) Prophylactic measure Assessment & Plan: Lovenox 40 SC daily Pepcid 20 mg PO BID [facility] Status: Acute <Donnell Ying - Last Filed: 12/30/15 16:01> Objective - Vital Signs/Intake and Output Vital Signs (last 24 hours): Temp Pulse Resp BP Pulse Ox 98.1 F 114 H 20 154/88 H 114 H 12/30/15 14:00 12/30/15 14:00 12/30/15 14:00 12/30/15 14:00 12/30/15 14:00 Intake and Output: 12/30/15 12/30/15 06:59 18:59 Intake Total 800 Output Total 600 300 Balance 200 -300 - Medications Medications: Current Medications Aspirin (Aspirin) 325 mg PO DAILY [facility] Last Admin: 11/23/15 09:42 Dose: 325 mg Clopidogrel Bisulfate (Plavix) 75 mg PO DAILY [facility] Last Admin: 12/30/15 10:59 Dose: 75 mg Enoxaparin Sodium (Lovenox) 40 mg SC DAILY [facility] Last Admin: 12/30/15 10:58 Dose: 40 mg Famotidine (Pepcid) 20 mg PO BID [facility] Last Admin: 12/30/15 10:59 Dose: 20 mg Lisinopril (Zestril) 5 mg PO DAILY [facility] Last Admin: 12/30/15 10:59 Dose: 5 mg Oxybutynin Chloride (Ditropan Tab) 5 mg PO TID [facility] Last Admin: 12/30/15 10:59 Dose: 5 mg Phenytoin (Dilantin) 100 mg PEG TID [facility] Last Admin: 12/30/15 11:00 Dose: 100 mg Polyethylene Glycol (Miralax) 17 gm PEG BID [facility] Last Admin: 08/21/15 11:26 Dose: Not Given - Labs Labs: 12/28/15 07:25 12/28/15 07:25 PT 10.6 SECONDS (9.7-12.2) 11/24/15 14:10 INR 1.0 11/24/15 14:10 APTT 25 SECONDS (21-34) 11/24/15 14:10 Attending/Attestation - Attestation I have personally seen and examined this patient.: Yes I have fully participated in the care of the patient.: Yes I have reviewed all pertinent clinical information, including history, physical exam and plan: Yes Notes (Text): 12/30/15 16:00 patient seen and examined at bedside Family present at bedside. No change in clinical condition. Continue current management. Frequent turning and positioning to avoid decubitus ulcers.
[2015-12-30] MEDS: Enoxaparin 40 mg Syringe SC SCH (10:58)
[2015-12-30] MEDS: Phenytoin 100 mg/4 ml Oral Susp UD PEG SCH ×3 (11:00→19:18)
[2015-12-31 07:45] LABS: HEMOGLOBIN 12.8 g/dL (12.0-18.0); MEAN CELL VOLUME 94.5 fL (80.0-94.0); MEAN CORPUSCULAR HEMOGLOBIN 31.3 pg (27.0-31.0); MEAN CORPUSCULAR HGB CONC 33.1 g/dL (33.0-37.0); MEAN PLATELET VOLUME 8.2 fL (7.2-11.7); RBC 4.1 Mil/uL (4.40-5.90); RED CELL DISTRIBUTION WIDTH 14.5 % (11.5-14.5); WHITE BLOOD COUNT 8.5 K/uL (4.8-10.8)
[2015-12-31 08:38] LABS: GFR NON-AFRICAN AMERICAN > 60
[2015-12-31 08:39] LABS: BLOOD UREA NITROGEN 22 mg/dL (9-20)
[2015-12-31] MEDS: Enoxaparin 40 mg Syringe SC SCH (12:32)
[2015-12-31] MEDS: Phenytoin 100 mg/4 ml Oral Susp UD PEG SCH ×3 (12:32→18:00)
--- NOTE | 2015-12-31 15:20 | CP.PCM.PN ---
"<Howard Lopez - Last Filed: 12/31/15 15:30> Subjective - Date & Time of Evaluation Date of Evaluation: 12/31/15 Time of Evaluation: 09:30 - Subjective Subjective: PGY1 Medicine Progress Note | Dr. Demetrice Ying's Service Pt. seen and examined at bedside. There is no change in clinical status. Pt. remains unresponsive to tactile/verbal/painful stimuli. PEG tube is operational at 50cc/hr. ROS unobtainable. Objective - Vital Signs/Intake and Output Vital Signs (last 24 hours): Temp Pulse Resp BP Pulse Ox 95 F L 100 H 20 157/101 H 98 12/31/15 14:25 12/31/15 14:25 12/31/15 14:25 12/31/15 14:25 12/31/15 14:25 Intake and Output: 12/31/15 12/31/15 06:59 18:59 Output Total 725 Balance -725 - Medications Medications: Current Medications Aspirin (Aspirin) 325 mg PO DAILY [facility] Last Admin: 11/23/15 09:42 Dose: 325 mg Clopidogrel Bisulfate (Plavix) 75 mg PO DAILY [facility] Last Admin: 12/31/15 12:34 Dose: 75 mg Enoxaparin Sodium (Lovenox) 40 mg SC DAILY [facility] Last Admin: 12/31/15 12:32 Dose: 40 mg Famotidine (Pepcid) 20 mg PO BID [facility] Last Admin: 12/30/15 19:18 Dose: 20 mg Lisinopril (Zestril) 5 mg PO DAILY [facility] Last Admin: 12/31/15 12:34 Dose: 5 mg Oxybutynin Chloride (Ditropan Tab) 5 mg PO TID [facility] Last Admin: 12/31/15 12:37 Dose: 5 mg Phenytoin (Dilantin) 100 mg PEG TID [facility] Last Admin: 12/31/15 12:32 Dose: 100 mg Polyethylene Glycol (Miralax) 17 gm PEG BID [facility] Last Admin: 08/21/15 11:26 Dose: Not Given - Labs Labs: 12/31/15 07:27 12/31/15 07:27 PT 10.6 SECONDS (9.7-12.2) 11/24/15 14:10 INR 1.0 11/24/15 14:10 APTT 25 SECONDS (21-34) 11/24/15 14:10 - Constitutional Appears: No Acute Distress, Chronically Ill - Head Exam Head Exam: ATRAUMATIC, NORMOCEPHALIC - ENT Exam ENT Exam: Mucous Membranes Moist - Respiratory Exam Respiratory Exam: Clear to Ausculation Bilateral. absent: Rales, Rhonchi, Wheezes - Cardiovascular Exam Cardiovascular Exam: REGULAR RHYTHM, +S1, +S2. absent: Gallop, Rubs, Murmur - GI/Abdominal Exam GI & Abdominal Exam: Soft, Normal Bowel Sounds - Extremities Exam Extremities Exam: absent: Pedal Edema - Neurological Exam Neurological Exam: Altered. absent: Alert, Awake, Oriented x3 - Psychiatric Exam Psychiatric exam: Normal Mood - Skin Skin Exam: Dry, Warm Assessment and Plan - Assessment and Plan (Free Text) Assessment: (1) Urinary tract infection Assessment & Plan: 12/31: Yoo catheter in place 12/27: Off Zosyn 12/26: urine culture from 12/23/15 was negative. Will discontinue Zosyn 3.375gm IVPB Q6H x7 days (day 7) today Ditropan 5mg PEG TID for leakage around catheter Urology consult - Dr. Oropeza - help appreciated ID on board - Dr. Armstrong - help appreciated Status: Acute (2) Anoxic encephalopathy Assessment & Plan: 12/31: No acute change in mental status. PEG tube operational, tube feedings running at 50cc/hr. 12/28: mental status unchanged; PEG tube placed at bedside by Dr. Chan. Abdominal X-ray showed PEG tube in position with contrast entering appropriately. PEG tube approved for use. GCS 8 [id number] patient with trach in place. Pending placement training family in how to take care of patient Status: Chronic (3) Respiratory failure Assessment & Plan: 12/31: No acute changes. Trach in place @ 5L O2 12/27: tolerating trach collar 12/26: per RN, thick secretions this morning. Saturating well on trach collar. Trach collar in place. Sputum culture 12/06 + pseudomonas: probably colonization. afebrile. normal white count. CXR without infiltrates. No antibiotics for now per Dr. Armstrong tracheostomy with tube change by Dr. Chan on 11/27/15 CXR 12/08--> Tracheostomy tube appears deviated to the left which may be related to patient positioning. Clinical correlation as this does not project over the midline trachea. Bibasilar atelectasis. Mild stable nodularity at the right lung base. (see full report) Cipro started on 11/30 was stopped on 12/08. clean and dry site saturating well on 7L O2 via trach collar No blood tinged secretions noted Bronchial washing grew Pseudomonas ID consult - Dr. Armstrong - help appreciated Working on getting portable suctioning for family to practice Status: Acute (4) CAD (coronary artery disease) Assessment & Plan: cardiac stents on 06/13/15. Continue Lisinopril 5mg PO daily Continue Plavix 75mg PO daily Continue ASA 325mg PO daily-currently held due to recent trach bleeding Status: Chronic (5) Seizures Assessment & Plan: Continue dilantin 100mg via PEG TID Status: Chronic (6) Bed sore Assessment & Plan: sacral ulcer. Stage II 0.5cm x 1.5cm Continue wound care, sensicare and medihoney. Continue repositioning of patient q2H. dolphin mattress. Heel air boots. Status: Acute (7) Prophylactic measure Assessment & Plan: Lovenox 40 SC daily Pepcid 20 mg PO BID [facility] Status: Acute <Donnell Ying M - Last Filed: 12/31/15 15:46> Objective - Vital Signs/Intake and Output Vital Signs (last 24 hours): Temp Pulse Resp BP Pulse Ox 95 F L 100 H 20 157/101 H 98 12/31/15 14:25 12/31/15 14:25 12/31/15 14:25 12/31/15 14:25 12/31/15 14:25 Intake and Output: 12/31/15 12/31/15 06:59 18:59 Output Total 725 Balance -725 - Medications Medications: Current Medications Aspirin (Aspirin) 325 mg PO DAILY [facility] Last Admin: 11/23/15 09:42 Dose: 325 mg Clopidogrel Bisulfate (Plavix) 75 mg PO DAILY [facility] Last Admin: 12/31/15 12:34 Dose: 75 mg Enoxaparin Sodium (Lovenox) 40 mg SC DAILY [facility] Last Admin: 12/31/15 12:32 Dose: 40 mg Famotidine (Pepcid) 20 mg PO BID [facility] Last Admin: 12/30/15 19:18 Dose: 20 mg Lisinopril (Zestril) 5 mg PO DAILY [facility] Last Admin: 12/31/15 12:34 Dose: 5 mg Oxybutynin Chloride (Ditropan Tab) 5 mg PO TID [facility] Last Admin: 12/31/15 12:37 Dose: 5 mg Phenytoin (Dilantin) 100 mg PEG TID [facility] Last Admin: 12/31/15 12:32 Dose: 100 mg Polyethylene Glycol (Miralax) 17 gm PEG BID [facility] Last Admin: 08/21/15 11:26 Dose: Not Given - Labs Labs: 12/31/15 07:27 12/31/15 07:27 PT 10.6 SECONDS (9.7-12.2) 11/24/15 14:10 INR 1.0 11/24/15 14:10 APTT 25 SECONDS (21-34) 11/24/15 14:10 Attending/Attestation - Attestation I have personally seen and examined this patient.: Yes I have fully participated in the care of the patient.: Yes I have reviewed all pertinent clinical information, including history, physical exam and plan: Yes Notes (Text): 12/31/15 15:45 Patient seen and examined at bedside with the resident. Patient is at baseline with no change in his medical condition. We will continue current management. Plan for family meeting this week"
--- NOTE | 2016-01-01 07:23 | CP.PCM.PN ---
"<Howard Lopez - Last Filed: 01/01/16 18:16> Subjective - Date & Time of Evaluation Date of Evaluation: 01/01/16 Time of Evaluation: 07:46 - Subjective Subjective: PGY1 Medicine Progress Note | Dr. Demetrice Ying's Service Pt. seen and examined at bedside. There is no change in clinical status. Pt. remains unresponsive to tactile/verbal/painful stimuli. PEG tube running at 50cc /hr. ROS unobtainable. Objective - Vital Signs/Intake and Output Vital Signs (last 24 hours): Temp Pulse Resp BP Pulse Ox 98.5 F 102 H 20 145/81 99 01/01/16 06:45 01/01/16 06:45 01/01/16 06:45 01/01/16 06:45 12/31/15 21:00 Intake and Output: 01/01/16 01/01/16 06:59 18:59 Intake Total 700 Output Total 600 300 Balance 100 -300 - Medications Medications: Current Medications Aspirin (Aspirin) 325 mg PO DAILY [facility] Last Admin: 11/23/15 09:42 Dose: 325 mg Clopidogrel Bisulfate (Plavix) 75 mg PO DAILY [facility] Last Admin: 12/31/15 12:34 Dose: 75 mg Enoxaparin Sodium (Lovenox) 40 mg SC DAILY [facility] Last Admin: 12/31/15 12:32 Dose: 40 mg Famotidine (Pepcid) 20 mg PO BID [facility] Last Admin: 12/31/15 18:00 Dose: Not Given Lisinopril (Zestril) 5 mg PO DAILY [facility] Last Admin: 12/31/15 12:34 Dose: 5 mg Oxybutynin Chloride (Ditropan Tab) 5 mg PO TID [facility] Last Admin: 12/31/15 18:00 Dose: Not Given Phenytoin (Dilantin) 100 mg PEG TID [facility] Last Admin: 12/31/15 18:00 Dose: Not Given Polyethylene Glycol (Miralax) 17 gm PEG BID [facility] Last Admin: 08/21/15 11:26 Dose: Not Given - Labs Labs: 12/31/15 07:27 12/31/15 07:27 PT 10.6 SECONDS (9.7-12.2) 11/24/15 14:10 INR 1.0 11/24/15 14:10 APTT 25 SECONDS (21-34) 11/24/15 14:10 - Additional Findings Additional findings: - Constitutional Appears: No Acute Distress, Chronically Ill - Head Exam Head Exam: ATRAUMATIC, NORMOCEPHALIC - ENT Exam ENT Exam: Mucous Membranes Moist - Respiratory Exam Respiratory Exam: Clear to Ausculation Bilateral. absent: Rales, Rhonchi, Wheezes - Cardiovascular Exam Cardiovascular Exam: REGULAR RHYTHM, +S1, +S2. absent: Gallop, Rubs, Murmur - GI/Abdominal Exam GI & Abdominal Exam: Soft, Normal Bowel Sounds - Extremities Exam Extremities Exam: absent: Pedal Edema - Neurological Exam Neurological Exam: Altered. absent: Alert, Awake, Oriented x3 - Psychiatric Exam Psychiatric exam: Normal Mood - Skin Skin Exam: Dry, Warm Assessment and Plan - Assessment and Plan (Free Text) Assessment: (1) Anoxic encephalopathy Assessment & Plan: 01/01: No acute change in mental status. PEG tube operational, tube feedings running at 50cc/hr. 12/28: mental status unchanged; PEG tube placed at bedside by Dr. Chan. Abdominal X-ray showed PEG tube in position with contrast entering appropriately. PEG tube approved for use. GCS 8 [id number] patient with trach in place. Pending placement training family in how to take care of patient Status: Chronic (2) Respiratory failure Assessment & Plan: 01/01: No acute changes. Trach in place @ 5L O2 12/27: tolerating trach collar 23: per RN, thick secretions this morning. Saturating well on trach collar. Trach collar in place. Sputum culture 12/06 + pseudomonas: probably colonization. afebrile. normal white count. CXR without infiltrates. No antibiotics for now per Dr. Armstrong tracheostomy with tube change by Dr. Chan on 11/27/15 CXR 12/08--> Tracheostomy tube appears deviated to the left which may be related to patient positioning. Clinical correlation as this does not project over the midline trachea. Bibasilar atelectasis. Mild stable nodularity at the right lung base. (see full report) Cipro started on 11/30 was stopped on 12/08. clean and dry site saturating well on 7L O2 via trach collar No blood tinged secretions noted Bronchial washing grew Pseudomonas ID consult - Dr. Armstrong - help appreciated Working on getting portable suctioning for family to practice Status: Acute (3) Urinary tract infection Assessment & Plan: 01/01: Yoo catheter in place 12/27: Off Zosyn 12/26: urine culture from 12/23/15 was negative. Will discontinue Zosyn 3.375gm IVPB Q6H x7 days (day 7) today Ditropan 5mg PEG TID for leakage around catheter Urology consult - Dr. Oropeza - help appreciated ID on board - Dr. Armstrong - help appreciated Status: Acute (4) CAD (coronary artery disease) Assessment & Plan: Cardiac stents on 06/13/15. Continue Lisinopril 5mg PO daily Continue Plavix 75mg PO daily Continue ASA 325mg PO daily-currently held due to recent trach bleeding Status: Chronic (5) Seizures Assessment & Plan: Continue dilantin 100mg via PEG TID Status: Chronic (6) Bed sore Assessment & Plan: sacral ulcer. Stage II 0.5cm x 1.5cm Continue wound care, sensicare and medihoney. Continue repositioning of patient q2H. dolphin mattress. Heel air boots. Status: Acute (7) Prophylactic measure Assessment & Plan: Lovenox 40 SC daily Pepcid 20 mg PO BID [facility]CD[facility] Status: Acute <Donnell Ying - Last Filed: 01/01/16 22:19> Objective - Vital Signs/Intake and Output Vital Signs (last 24 hours): Temp Pulse Resp BP Pulse Ox 98.7 F 87 18 133/84 97 01/01/16 21:28 01/01/16 21:28 01/01/16 21:28 01/01/16 21:28 01/01/16 21:28 Intake and Output: 01/01/16 01/02/16 18:59 06:59 Output Total 600 Balance -600 - Medications Medications: Current Medications Aspirin (Aspirin) 325 mg PO DAILY [facility] Last Admin: 11/23/15 09:42 Dose: 325 mg Clopidogrel Bisulfate (Plavix) 75 mg PO DAILY [facility] Last Admin: 01/01/16 11:00 Dose: 75 mg Enoxaparin Sodium (Lovenox) 40 mg SC DAILY [facility] Last Admin: 01/01/16 10:59 Dose: 40 mg Famotidine (Pepcid) 20 mg PO BID [facility] Last Admin: 01/01/16 17:04 Dose: 20 mg Lisinopril (Zestril) 5 mg PO DAILY [facility] Last Admin: 01/01/16 11:00 Dose: 5 mg Oxybutynin Chloride (Ditropan Tab) 5 mg PO TID [facility] Last Admin: 01/01/16 17:05 Dose: 5 mg Phenytoin (Dilantin) 100 mg PEG TID [facility] Last Admin: 01/01/16 17:03 Dose: 100 mg Polyethylene Glycol (Miralax) 17 gm PEG BID [facility] Last Admin: 08/21/15 11:26 Dose: Not Given - Labs Labs: 12/31/15 07:27 12/31/15 07:27 PT 10.6 SECONDS (9.7-12.2) 11/24/15 14:10 INR 1.0 11/24/15 14:10 APTT 25 SECONDS (21-34) 11/24/15 14:10 Attending/Attestation - Attestation I have personally seen and examined this patient.: Yes I have fully participated in the care of the patient.: Yes I have reviewed all pertinent clinical information, including history, physical exam and plan: Yes Notes (Text): 01/01/16 22:19 No change in clinical status Continue current management"
[2016-01-01] MEDS: Enoxaparin 40 mg Syringe SC SCH (10:59)
[2016-01-01] MEDS: Phenytoin 100 mg/4 ml Oral Susp UD PEG SCH ×3 (11:01→17:03)
--- NOTE | 2016-01-02 09:12 | CP.PCM.PN ---
<Howard Lopez - Last Filed: 01/02/16 16:56> Subjective - Date & Time of Evaluation Date of Evaluation: 01/02/16 Time of Evaluation: 10:00 - Subjective Subjective: PGY1 Medicine Progress Note | Dr. Demetrice Ying's Service Pt. seen and examined at bedside. No change in clinical status. Pt. remains unresponsive to tactile/verbal/painful stimuli. PEG tube running at 50cc/hr. ROS unobtainable. Per RN, she had been endorsed that overnight, the patient's baker was leaking but that it was "adjusted." Objective - Vital Signs/Intake and Output Vital Signs (last 24 hours): Temp Pulse Resp BP Pulse Ox 97.3 F L 88 18 127/73 100 01/02/16 05:06 01/02/16 05:06 01/02/16 05:06 01/02/16 05:06 01/02/16 05:06 Intake and Output: 01/02/16 01/02/16 06:59 18:59 Intake Total 900 Output Total 600 Balance 300 - Medications Medications: Current Medications Aspirin (Aspirin) 325 mg PO DAILY [facility] Last Admin: 11/23/15 09:42 Dose: 325 mg Clopidogrel Bisulfate (Plavix) 75 mg PO DAILY [facility] Last Admin: 01/01/16 11:00 Dose: 75 mg Enoxaparin Sodium (Lovenox) 40 mg SC DAILY [facility] Last Admin: 01/01/16 10:59 Dose: 40 mg Famotidine (Pepcid) 20 mg PO BID [facility] Last Admin: 01/01/16 17:04 Dose: 20 mg Lisinopril (Zestril) 5 mg PO DAILY [facility] Last Admin: 01/01/16 11:00 Dose: 5 mg Oxybutynin Chloride (Ditropan Tab) 5 mg PO TID [facility] Last Admin: 01/01/16 17:05 Dose: 5 mg Phenytoin (Dilantin) 100 mg PEG TID [facility] Last Admin: 01/01/16 17:03 Dose: 100 mg Polyethylene Glycol (Miralax) 17 gm PEG BID [facility] Last Admin: 08/21/15 11:26 Dose: Not Given - Labs Labs: 12/31/15 07:27 12/31/15 07:27 PT 10.6 SECONDS (9.7-12.2) 11/24/15 14:10 INR 1.0 11/24/15 14:10 APTT 25 SECONDS (21-34) 11/24/15 14:10 - Additional Findings Additional findings: - Constitutional Appears: No Acute Distress, Chronically Ill - Head Exam Head Exam: ATRAUMATIC, NORMOCEPHALIC - ENT Exam ENT Exam: Mucous Membranes Moist - Respiratory Exam Respiratory Exam: Clear to Ausculation Bilateral. absent: Rales, Rhonchi, Wheezes - Cardiovascular Exam Cardiovascular Exam: REGULAR RHYTHM, +S1, +S2. absent: Gallop, Rubs, Murmur - GI/Abdominal Exam GI & Abdominal Exam: Soft, Normal Bowel Sounds - Exam Additional comments: Room had urine odor and upon further inspection, towel draped over pelvis was soaked with urine. - Extremities Exam Extremities Exam: absent: Pedal Edema - Neurological Exam Neurological Exam: Altered. absent: Alert, Awake, Oriented x3 - Psychiatric Exam Psychiatric exam: Normal Mood - Skin Skin Exam: Dry, Warm Assessment and Plan - Assessment and Plan (Free Text) Assessment: (1) Urinary tract infection Assessment & Plan: 01/02: baker catheter likely leaking. Baker was discontinued and replaced with [place] catheter. f/u urine culture, urinalysis. f/u CBC in AM 01/01: Baker catheter in place 12/27: Off Zosyn 12/26: urine culture from 12/23/15 was negative. Will discontinue Zosyn 3.375gm IVPB Q6H x7 days (day 7) today Ditropan 5mg PEG TID for leakage around catheter Urology consult - Dr. Oropeza - help appreciated ID on board - Dr. Armstrong - help appreciated Status: Acute (2) Anoxic encephalopathy Assessment & Plan: 01/02: No acute change in mental status. PEG tube operational, tube feedings running at 50cc/hr. 12/28: mental status unchanged; PEG tube placed at bedside by Dr. Chan. Abdominal X-ray showed PEG tube in position with contrast entering appropriately. PEG tube approved for use. GCS 8 [id number] patient with trach in place. Pending placement training family in how to take care of patient Status: Chronic (3) Respiratory failure Assessment & Plan: 01/02: No acute changes. Trach in place @ 5L O2 12/27: tolerating trach collar 2/3: per RN, thick secretions this morning. Saturating well on trach collar. Trach collar in place. Sputum culture 12/06 + pseudomonas: probably colonization. afebrile. normal white count. CXR without infiltrates. No antibiotics for now per Dr. Armstrong tracheostomy with tube change by Dr. Chan on 11/27/15 CXR 12/08--> Tracheostomy tube appears deviated to the left which may be related to patient positioning. Clinical correlation as this does not project over the midline trachea. Bibasilar atelectasis. Mild stable nodularity at the right lung base. (see full report) Cipro started on 11/30 was stopped on 12/08. clean and dry site saturating well on 7L O2 via trach collar No blood tinged secretions noted Bronchial washing grew Pseudomonas ID consult - Dr. Armstrong - help appreciated Working on getting portable suctioning for family to practice Status: Acute (4) CAD (coronary artery disease) Assessment & Plan: Cardiac stents on 06/13/15. Continue Lisinopril 5mg PO daily Continue Plavix 75mg PO daily Continue ASA 325mg PO daily-currently held due to recent trach bleeding Status: Chronic (5) Seizures Assessment & Plan: Continue dilantin 100mg via PEG TID Status: Chronic (6) Bed sore Assessment & Plan: sacral ulcer. Stage II 0.5cm x 1.5cm Continue wound care, sensicare and medihoney. Continue repositioning of patient q2H. dolphin mattress. Heel air boots. Status: Acute (7) Prophylactic measure Assessment & Plan: Lovenox 40 SC daily Pepcid 20 mg PO BID [facility] Status: Acute <Donnell Ying - Last Filed: 01/02/16 17:57> Objective - Vital Signs/Intake and Output Vital Signs (last 24 hours): Temp Pulse Resp BP Pulse Ox 97.9 F 61 19 138/76 96 01/02/16 13:39 01/02/16 13:39 01/02/16 13:39 01/02/16 13:39 01/02/16 13:39 Intake and Output: 01/02/16 01/02/16 06:59 18:59 Intake Total 900 Output Total 600 500 Balance 300 -500 - Medications Medications: Current Medications Aspirin (Aspirin) 325 mg PO DAILY [facility] Last Admin: 11/23/15 09:42 Dose: 325 mg Clopidogrel Bisulfate (Plavix) 75 mg PO DAILY [facility] Last Admin: 01/02/16 11:06 Dose: 75 mg Enoxaparin Sodium (Lovenox) 40 mg SC DAILY [facility] Last Admin: 01/02/16 11:04 Dose: 40 mg Famotidine (Pepcid) 20 mg PO BID [facility] Last Admin: 01/02/16 11:06 Dose: 20 mg Lisinopril (Zestril) 5 mg PO DAILY [facility] Last Admin: 01/02/16 11:06 Dose: 5 mg Oxybutynin Chloride (Ditropan Tab) 5 mg PO TID [facility] Last Admin: 01/02/16 15:04 Dose: 5 mg Phenytoin (Dilantin) 100 mg PEG TID [facility] Last Admin: 01/02/16 15:04 Dose: 100 mg Polyethylene Glycol (Miralax) 17 gm PEG BID [facility] Last Admin: 08/21/15 11:26 Dose: Not Given - Labs Labs: 12/31/15 07:27 12/31/15 07:27 PT 10.6 SECONDS (9.7-12.2) 11/24/15 14:10 INR 1.0 11/24/15 14:10 APTT 25 SECONDS (21-34) 11/24/15 14:10 Attending/Attestation - Attestation I have personally seen and examined this patient.: Yes I have fully participated in the care of the patient.: Yes I have reviewed all pertinent clinical information, including history, physical exam and plan: Yes Notes (Text): 01/02/16 17:56 Patient seen and examined at bedside with the resident. Patient is lying comfortably in bed. It was noted that urine is leaking around the Baker's catheter. Baker's catheter was discontinued and patient the be started on [place] catheter. We will check urine for any infection. Follow-up cultures. Patient to continue frequent suctioning. Continue turn and position every 2 hours and local wound care for the decubitus ulcer.
[2016-01-02] MEDS: Enoxaparin 40 mg Syringe SC SCH (11:04)
[2016-01-02] MEDS: Phenytoin 100 mg/4 ml Oral Susp UD PEG SCH ×3 (11:05→18:07)
[2016-01-03 08:17] LABS: BASO # 0.1 K/uL (0.0-0.2); BASO % 0.9 % (0.0-2.0); EOS # 0.9 K/uL (0.0-0.7); EOS % 10.5 % (0.0-4.0); HEMOGLOBIN 12.8 g/dL (12.0-18.0); LYMPH # 1.5 K/uL (1.0-4.3); LYMPH % 17.2 % (20.0-40.0); MEAN CELL VOLUME 94.4 fL (80.0-94.0); MEAN CORPUSCULAR HEMOGLOBIN 31.3 pg (27.0-31.0); MEAN CORPUSCULAR HGB CONC 33.1 g/dL (33.0-37.0); MEAN PLATELET VOLUME 8.8 fL (7.2-11.7); MONO # 0.7 K/uL (0.0-0.8); MONO % 7.6 % (0.0-10.0); NEUT # 5.6 K/uL (1.8-7.0); NEUT % 63.8 % (50.0-75.0); RBC 4.08 Mil/uL (4.40-5.90); RED CELL DISTRIBUTION WIDTH 14.5 % (11.5-14.5); WHITE BLOOD COUNT 8.8 K/uL (4.8-10.8)
[2016-01-03 08:34] LABS: ALBUMIN 3.7 g/dL (3.5-5.0)
[2016-01-03 08:37] LABS: AST/SGOT 27 U/L (17-59); BLOOD UREA NITROGEN 25 mg/dL (9-20); GFR NON-AFRICAN AMERICAN > 60
[2016-01-03 08:38] LABS: ALT/SGPT 53 U/L (21-72); CALCIUM 8.7 mg/dL (8.4-10.2)
--- NOTE | 2016-01-03 08:58 | CP.PCM.PN ---
"<Wendi Mercedes R - Last Filed: 01/03/16 14:20> Subjective - Date & Time of Evaluation Date of Evaluation: 01/03/16 Time of Evaluation: 11:50 - Subjective Subjective: Medical attending note: Patient seen and examined by me. Case discussed with resident. Agree with resident HPI/Exam/A&P with appropriate additions and changes. Patient is awake. Patient does not follow commands and is non-verbal. Patient is afebrile. Unable to obtain review of systems from patient. Objective - Vital Signs/Intake and Output Vital Signs (last 24 hours): Temp Pulse Resp BP Pulse Ox 97.8 F 94 H 18 118/75 100 01/03/16 06:51 01/03/16 08:00 01/03/16 06:51 01/03/16 06:51 01/03/16 06:51 Intake and Output: 01/03/16 01/03/16 06:59 18:59 Intake Total 650 Output Total 200 Balance 450 - Medications Medications: Current Medications Aspirin (Aspirin) 325 mg PO DAILY [facility] Last Admin: 11/23/15 09:42 Dose: 325 mg Clopidogrel Bisulfate (Plavix) 75 mg PO DAILY [facility] Last Admin: 01/03/16 10:33 Dose: 75 mg Enoxaparin Sodium (Lovenox) 40 mg SC DAILY [facility] Last Admin: 01/03/16 10:34 Dose: 40 mg Famotidine (Pepcid) 20 mg PO BID [facility] Last Admin: 01/03/16 10:34 Dose: 20 mg Lisinopril (Zestril) 5 mg PO DAILY [facility] Last Admin: 01/03/16 10:34 Dose: 5 mg Oxybutynin Chloride (Ditropan Tab) 5 mg PO TID [facility] Last Admin: 01/03/16 10:38 Dose: 5 mg Phenytoin (Dilantin) 100 mg PEG TID [facility] Last Admin: 01/03/16 10:33 Dose: 100 mg Polyethylene Glycol (Miralax) 17 gm PEG BID [facility] Last Admin: 08/21/15 11:26 Dose: Not Given - Labs Labs: 01/03/16 07:42 01/03/16 07:42 PT 10.6 SECONDS (9.7-12.2) 11/24/15 14:10 INR 1.0 11/24/15 14:10 APTT 25 SECONDS (21-34) 11/24/15 14:10 - Constitutional Appears: No Acute Distress, Chronically Ill - Head Exam Head Exam: ATRAUMATIC, NORMOCEPHALIC - Eye Exam Eye Exam: absent: Scleral icterus - ENT Exam ENT Exam: Mucous Membranes Moist - Neck Exam Additional comments: trach in place - Respiratory Exam Respiratory Exam: absent: Rales, Wheezes - Cardiovascular Exam Cardiovascular Exam: REGULAR RHYTHM, +S1, +S2. absent: Gallop, Rubs - GI/Abdominal Exam GI & Abdominal Exam: Soft, Normal Bowel Sounds. absent: Distended - Extremities Exam Additional comments: b/l Heel boots in place pedal pulses intact - Neurological Exam Neurological Exam: Alert Additional comments: patient is nonverbal and does not follow commands - Skin Skin Exam: Dry, Warm Assessment and Plan (1) UTI (lower urinary tract infection) Assessment & Plan: Yoo catheter leaking [place] catheter placed Patient s/p treatment with antibiotics Follow up repeat urinalysis and urine culture ordered 01/02/16 Continue Ditropan 5mg PO TISD Status: Acute (2) Anoxic encephalopathy Assessment & Plan: No acute changes Mental status unchanged Trach and PEG in place Placement pending Status: Acute (3) Respiratory failure Assessment & Plan: No acute changes trach in place Placement pending Status: Acute (4) CAD (coronary artery disease) Assessment & Plan: s/p cardiac stents 06/13/15 Continue Plavix 75mg PO daily Continue Lisinopril 5mg PO daily ASA currently held due to recent trach bleeding Status: Acute (5) Seizures Assessment & Plan: Continue Dilantin 100mg PO TID Status: Acute (6) Bed sore Assessment & Plan: sacral ulcer Stage II 0.5cm x 1.5cm Continue wound care Continue sensicare and medihoney Continue to reposition patient q2H Monitor area Status: Acute (7) Prophylactic measure Assessment & Plan: Lovenox 40mg SC daily Pepcid 20mg PO BID Status: Acute Attending/Attestation - Attestation I have personally seen and examined this patient.: Yes I have fully participated in the care of the patient.: Yes I have reviewed all pertinent clinical information, including history, physical exam and plan: Yes <Howard Lopez - Last Filed: 01/04/16 00:54> Subjective - Date & Time of Evaluation Date of Evaluation: 01/03/16 Time of Evaluation: 09:00 - Subjective Subjective: PGY1 Medicine Progress Note | Dr. Manan Mercedes's Service Pt. seen and examined at bedside with no change in clinical status. Pt. remains unresponsive to tactile/verbal/painful stimuli. ROS unobtainable. Objective - Vital Signs/Intake and Output Vital Signs (last 24 hours): Temp Pulse Resp BP Pulse Ox 97.8 F 94 H 18 118/75 100 01/03/16 06:51 01/03/16 06:51 01/03/16 06:51 01/03/16 06:51 01/03/16 06:51 Intake and Output: 01/03/16 01/03/16 06:59 18:59 Intake Total 650 Output Total 200 Balance 450 - Medications Medications: Current Medications Aspirin (Aspirin) 325 mg PO DAILY [facility] Last Admin: 11/23/15 09:42 Dose: 325 mg Clopidogrel Bisulfate (Plavix) 75 mg PO DAILY [facility] Last Admin: 01/02/16 11:06 Dose: 75 mg Enoxaparin Sodium (Lovenox) 40 mg SC DAILY [facility] Last Admin: 01/02/16 11:04 Dose: 40 mg Famotidine (Pepcid) 20 mg PO BID [facility] Last Admin: 01/02/16 18:07 Dose: 20 mg Lisinopril (Zestril) 5 mg PO DAILY [facility] Last Admin: 01/02/16 11:06 Dose: 5 mg Oxybutynin Chloride (Ditropan Tab) 5 mg PO TID [facility] Last Admin: 01/02/16 18:08 Dose: 5 mg Phenytoin (Dilantin) 100 mg PEG TID [facility] Last Admin: 01/02/16 18:07 Dose: 100 mg Polyethylene Glycol (Miralax) 17 gm PEG BID [facility] Last Admin: 08/21/15 11:26 Dose: Not Given - Labs Labs: 01/03/16 07:42 01/03/16 07:42 PT 10.6 SECONDS (9.7-12.2) 11/24/15 14:10 INR 1.0 11/24/15 14:10 APTT 25 SECONDS (21-34) 11/24/15 14:10 - Constitutional Appears: No Acute Distress, Chronically Ill - Head Exam Head Exam: ATRAUMATIC, NORMOCEPHALIC - Eye Exam Eye Exam: absent: Scleral icterus - ENT Exam ENT Exam: Mucous Membranes Moist - Neck Exam Additional comments: trach collar - Respiratory Exam Respiratory Exam: absent: Rales, Rhonchi, Wheezes, Respiratory Distress - Cardiovascular Exam Cardiovascular Exam: REGULAR RHYTHM, +S1, +S2. absent: Gallop, Rubs, Murmur - GI/Abdominal Exam GI & Abdominal Exam: Soft, Normal Bowel Sounds Additional comments: PEG in place - Extremities Exam Additional comments: +pedal pulses - Skin Skin Exam: Dry, Warm Assessment and Plan - Assessment and Plan (Free Text) Assessment: (1) Urinary tract infection Assessment & Plan: 01/03: urinalysis had 4+ protein, positive nitrates, 3+ leukocyte esterase. Rocephin 1gm IVPB daily started. Continue [place] catheter. Ditropan 5mg PEG TID for leakage around catheter Urology consult - Dr. Oropeza - help appreciated ID on board - Dr. Armstrong - help appreciated Status: Acute (2) Anoxic encephalopathy Assessment & Plan: 01/03: No acute change in mental status. PEG tube operational, tube feedings running at 50cc/hr. 12/28: mental status unchanged; PEG tube placed at bedside by Dr. Chan. Abdominal X-ray showed PEG tube in position with contrast entering appropriately. PEG tube approved for use. GCS 8 [id number] patient with trach in place. Pending placement training family in how to take care of patient Status: Chronic (3) Respiratory failure Assessment & Plan: 01/03: No acute changes. Trach in place @ 6L O2 12/27: tolerating trach collar 12/26: per RN, thick secretions this morning. Saturating well on trach collar. Trach collar in place. Sputum culture 12/06 + pseudomonas: probably colonization. afebrile. normal white count. CXR without infiltrates. No antibiotics for now per Dr. Armstrong tracheostomy with tube change by Dr. Chan on 11/27/15 CXR 12/08--> Tracheostomy tube appears deviated to the left which may be related to patient positioning. Clinical correlation as this does not project over the midline trachea. Bibasilar atelectasis. Mild stable nodularity at the right lung base. (see full report) Cipro started on 11/30 was stopped on 12/08. clean and dry site saturating well on 7L O2 via trach collar No blood tinged secretions noted Bronchial washing grew Pseudomonas ID consult - Dr. Armstrong - help appreciated Working on getting portable suctioning for family to practice Status: Acute (4) CAD (coronary artery disease) Assessment & Plan: Cardiac stents on 06/13/15. Continue Lisinopril 5mg PO daily Continue Plavix 75mg PO daily Continue ASA 325mg PO daily-currently held due to recent trach bleeding Status: Chronic (5) Seizures Assessment & Plan: Continue dilantin 100mg via PEG TID Status: Chronic (6) Bed sore Assessment & Plan: sacral ulcer. Stage II 0.5cm x 1.5cm Continue wound care, sensicare and medihoney. Continue repositioning of patient q2H. dolphin mattress. Heel air boots. Status: Acute (7) Prophylactic measure Assessment & Plan: Lovenox 40 SC daily Pepcid 20 mg PO BID [facility] Status: Acute"
[2016-01-03] MEDS: Phenytoin 100 mg/4 ml Oral Susp UD PEG SCH ×3 (10:33→19:04)
[2016-01-03] MEDS: Enoxaparin 40 mg Syringe SC SCH (10:34)
[2016-01-03 15:46] LABS: URINE BILIRUBIN NEGATIVE (NEGATIVE); URINE BLOOD NEGATIVE (NEGATIVE); URINE CLARITY Turbid (Clear); URINE COLOR Yellow (YELLOW); URINE GLUCOSE (UA) Normal (Normal); URINE LEUKOCYTE ESTERASE 3+ Leu/uL (Negative); URINE PROTEIN 4+ mg/dL (NEGATIVE); URINE UROBILINOGEN Normal mg/dL (0.2-1.0)
[2016-01-03 15:51] LABS: SQUAMOUS EPITHIAL 1 /hpf (0-5); URINE AMORPHOUS SEDIMENT RARE /ul (<OCC); URINE TRIPLE PHOSPHATE CRYSTAL FEW /hpf (<OCC)
[2016-01-04 07:42] LABS: BASO % 0.3 % (0.0-2.0); EOS # 1.1 K/uL (0.0-0.7); EOS % 10.4 % (0.0-4.0); HEMOGLOBIN 12.3 g/dL (12.0-18.0); LYMPH # 1.6 K/uL (1.0-4.3); LYMPH % 16.1 % (20.0-40.0); MEAN CELL VOLUME 94.6 fL (80.0-94.0); MEAN CORPUSCULAR HEMOGLOBIN 31.1 pg (27.0-31.0); MEAN CORPUSCULAR HGB CONC 32.9 g/dL (33.0-37.0); MEAN PLATELET VOLUME 8.9 fL (7.2-11.7); MONO # 0.8 K/uL (0.0-0.8); MONO % 8.2 % (0.0-10.0); NEUT # 6.6 K/uL (1.8-7.0); RBC 3.96 Mil/uL (4.40-5.90); RED CELL DISTRIBUTION WIDTH 14.3 % (11.5-14.5); WHITE BLOOD COUNT 10.1 K/uL (4.8-10.8)
[2016-01-04 08:19] LABS: ALBUMIN 3.7 g/dL (3.5-5.0)
[2016-01-04 08:21] LABS: GFR NON-AFRICAN AMERICAN > 60
[2016-01-04 08:22] LABS: ALT/SGPT 52 U/L (21-72); AST/SGOT 40 U/L (17-59); BLOOD UREA NITROGEN 29 mg/dL (9-20); CALCIUM 8.8 mg/dL (8.4-10.2)
[2016-01-04] MEDS: Phenytoin 100 mg/4 ml Oral Susp UD PEG SCH ×3 (11:02→17:44)
[2016-01-04] MEDS: Enoxaparin 40 mg Syringe SC SCH (11:03)
--- NOTE | 2016-01-04 15:09 | CP.PCM.PN ---
<Cedric Bairesen H - Last Filed: 01/04/16 15:06> Subjective - Date & Time of Evaluation Date of Evaluation: 01/04/16 Time of Evaluation: 09:50 - Subjective Subjective: PGY1 Medicine Note - Dr. Demetrice Ying's Service: Patient seen and examined at bedside this AM. Patient on 7L O2 via trach. Patient without baker cath. No change in clinical status. Patient remains unresponsive to tactile/verbal/painful stimuli. ROS unobtainable. Objective - Vital Signs/Intake and Output Vital Signs (last 24 hours): Temp Pulse Resp BP Pulse Ox 97.6 F 91 H 18 116/76 100 01/04/16 06:00 01/04/16 06:00 01/04/16 06:00 01/04/16 06:00 01/04/16 06:00 - Medications Medications: Current Medications Aspirin (Aspirin) 325 mg PO DAILY [facility] Last Admin: 11/23/15 09:42 Dose: 325 mg Clopidogrel Bisulfate (Plavix) 75 mg PO DAILY [facility] Last Admin: 01/04/16 11:03 Dose: 75 mg Enoxaparin Sodium (Lovenox) 40 mg SC DAILY [facility] Last Admin: 01/04/16 11:03 Dose: 40 mg Famotidine (Pepcid) 20 mg PO BID [facility] Last Admin: 01/04/16 11:03 Dose: 20 mg Imipenem/Cilastatin Sodium 500 (mg/ Sodium Chloride) 100 mls @ 100 mls/hr IVPB Q6H [facility] Last Admin: 01/04/16 13:52 Dose: 100 mls/hr Lisinopril (Zestril) 5 mg PO DAILY [facility] Last Admin: 01/04/16 11:03 Dose: 5 mg Oxybutynin Chloride (Ditropan Tab) 5 mg PO TID [facility] Last Admin: 01/04/16 13:51 Dose: 5 mg Phenytoin (Dilantin) 100 mg PEG TID [facility] Last Admin: 01/04/16 13:49 Dose: 100 mg Polyethylene Glycol (Miralax) 17 gm PEG BID [facility] Last Admin: 08/21/15 11:26 Dose: Not Given - Labs Labs: 01/04/16 07:13 01/04/16 07:13 PT 10.6 SECONDS (9.7-12.2) 11/24/15 14:10 INR 1.0 11/24/15 14:10 APTT 25 SECONDS (21-34) 11/24/15 14:10 - Constitutional Appears: No Acute Distress, Chronically Ill - Head Exam Head Exam: NORMAL INSPECTION - ENT Exam ENT Exam: Mucous Membranes Moist - Respiratory Exam Respiratory Exam: Clear to Ausculation Bilateral, NORMAL BREATHING PATTERN - Cardiovascular Exam Cardiovascular Exam: REGULAR RHYTHM, +S1, +S2 - GI/Abdominal Exam GI & Abdominal Exam: Soft, Normal Bowel Sounds. absent: Distended, Firm - Exam Additional comments: no baker catheter - Extremities Exam Extremities Exam: Normal Capillary Refill, Pedal Edema (1+ pitting b/l) - Neurological Exam Neurological Exam: Altered - Skin Skin Exam: Normal Color, Warm Assessment and Plan (1) Urinary tract infection Assessment & Plan: 01/04: Urine culture + for gram negative rods. spoke with Dr. Armstrong. swithced rocephin to primaxin 500mg IVPB Q8H F/U sensitivities [place] catheter ordered to be used with skin prep to keep it on 01/03: urinalysis had 4+ protein, positive nitrates, 3+ leukocyte esterase. Rocephin 1gm IVPB daily started. Continue [place] catheter. Ditropan 5mg PEG TID for leakage around catheter Urology consult - Dr. Oropeza - help appreciated ID on board - Dr. Armstrong - help appreciated Status: Acute (2) Anoxic encephalopathy Assessment & Plan: 01/04: No acute change in mental status. PEG tube operational, tube feedings running at 50cc/hr. 12/28: mental status unchanged; PEG tube placed at bedside by Dr. Chan. Abdominal X-ray showed PEG tube in position with contrast entering appropriately. PEG tube approved for use. GCS 8 [id number] patient with trach in place. Pending placement training family in how to take care of patient Status: Acute (3) Respiratory failure Assessment & Plan: 01/04: 7L O2 via trach. no changes 01/03: No acute changes. Trach in place @ 6L O2 12/27: tolerating trach collar 12/26: per RN, thick secretions this morning. Saturating well on trach collar. Trach collar in place. Sputum culture 12/06 + pseudomonas: probably colonization. afebrile. normal white count. CXR without infiltrates. No antibiotics for now per Dr. Armstrong tracheostomy with tube change by Dr. Chan on 11/27/15 CXR 12/08--> Tracheostomy tube appears deviated to the left which may be related to patient positioning. Clinical correlation as this does not project over the midline trachea. Bibasilar atelectasis. Mild stable nodularity at the right lung base. (see full report) Cipro started on 11/30 was stopped on 12/08. clean and dry site saturating well on 7L O2 via trach collar No blood tinged secretions noted Bronchial washing grew Pseudomonas ID consult - Dr. Armstrong - help appreciated Working on getting portable suctioning for family to practice Status: Acute (4) CAD (coronary artery disease) Assessment & Plan: Cardiac stents on 06/13/15. Continue Lisinopril 5mg PO daily Continue Plavix 75mg PO daily Continue ASA 325mg PO daily-currently held due to recent trach bleeding Status: Acute (5) Seizures Assessment & Plan: Continue dilantin 100mg via PEG TID Status: Acute (6) Bed sore Assessment & Plan: sacral ulcer. Stage II 0.5cm x 1.5cm Continue wound care, sensicare and medihoney. Continue repositioning of patient q2H. dolphin mattress. Heel air boots. Status: Acute (7) Prophylactic measure Assessment & Plan: Lovenox 40 SC daily Pepcid 20 mg PO BID [facility] Status: Acute <StepanDonnell M - Last Filed: 01/04/16 17:15> Objective - Vital Signs/Intake and Output Vital Signs (last 24 hours): Temp Pulse Resp BP Pulse Ox 98.5 F 99 H 20 107/63 100 01/04/16 15:12 01/04/16 15:12 01/04/16 15:12 01/04/16 15:12 01/04/16 15:12 - Medications Medications: Current Medications Aspirin (Aspirin) 325 mg PO DAILY [facility] Last Admin: 11/23/15 09:42 Dose: 325 mg Clopidogrel Bisulfate (Plavix) 75 mg PO DAILY [facility] Last Admin: 01/04/16 11:03 Dose: 75 mg Enoxaparin Sodium (Lovenox) 40 mg SC DAILY [facility] Last Admin: 01/04/16 11:03 Dose: 40 mg Famotidine (Pepcid) 20 mg PO BID [facility] Last Admin: 01/04/16 11:03 Dose: 20 mg Imipenem/Cilastatin Sodium 500 (mg/ Sodium Chloride) 100 mls @ 100 mls/hr IVPB Q6H [facility] Last Admin: 01/04/16 13:52 Dose: 100 mls/hr Lisinopril (Zestril) 5 mg PO DAILY [facility] Last Admin: 01/04/16 11:03 Dose: 5 mg Oxybutynin Chloride (Ditropan Tab) 5 mg PO TID [facility] Last Admin: 01/04/16 13:51 Dose: 5 mg Phenytoin (Dilantin) 100 mg PEG TID [facility] Last Admin: 01/04/16 13:49 Dose: 100 mg Polyethylene Glycol (Miralax) 17 gm PEG BID [facility] Last Admin: 08/21/15 11:26 Dose: Not Given - Labs Labs: 01/04/16 07:13 01/04/16 07:13 PT 10.6 SECONDS (9.7-12.2) 11/24/15 14:10 INR 1.0 11/24/15 14:10 APTT 25 SECONDS (21-34) 11/24/15 14:10 Attending/Attestation - Attestation I have personally seen and examined this patient.: Yes I have fully participated in the care of the patient.: Yes I have reviewed all pertinent clinical information, including history, physical exam and plan: Yes Notes (Text): 01/04/16 17:12 Patient was seen and examined at bedside with the resident. Patient does not have a Baker's catheter at this time. We will try a [place] catheter. Patient started on Primaxin for recurrent UTI. We will reinsert the Baker's catheter once the infection is resolved. Frequent turning and positioning to prevent decubitus ulcer. Discussed with nursing staff.
--- NOTE | 2016-01-05 00:02 | CP.PCM.PN ---
"<Howard Lopez - Last Filed: 01/05/16 05:21> Subjective - Date & Time of Evaluation Date of Evaluation: 01/05/16 Time of Evaluation: 04:25 - Subjective Subjective: PGY1 Medicine Progress Note | Dr. Demetrice Ying's Service Patient seen and examined at bedside. At the time of exam, the patient was in bed in NAD on 7L O2 via trach and tube feeding running at 50cc/hr. Clinical status unchanged. No change in clinical status. Patient remains unresponsive to tactile/verbal/painful stimuli. ROS unobtainable. Objective - Vital Signs/Intake and Output Vital Signs (last 24 hours): Temp Pulse Resp BP Pulse Ox 98.5 F 83 20 137/84 100 01/04/16 20:54 01/04/16 20:54 01/04/16 20:54 01/04/16 20:54 01/04/16 20:54 Intake and Output: 01/04/16 01/05/16 18:59 06:59 Output Total 0 Balance 0 - Medications Medications: Current Medications Aspirin (Aspirin) 325 mg PO DAILY [facility] Last Admin: 11/23/15 09:42 Dose: 325 mg Clopidogrel Bisulfate (Plavix) 75 mg PO DAILY [facility] Last Admin: 01/04/16 11:03 Dose: 75 mg Enoxaparin Sodium (Lovenox) 40 mg SC DAILY [facility] Last Admin: 01/04/16 11:03 Dose: 40 mg Famotidine (Pepcid) 20 mg PO BID [facility] Last Admin: 01/04/16 17:44 Dose: 20 mg Imipenem/Cilastatin Sodium 500 (mg/ Sodium Chloride) 100 mls @ 100 mls/hr IVPB Q6H [facility] Last Admin: 01/04/16 23:45 Dose: 100 mls/hr Lisinopril (Zestril) 5 mg PO DAILY [facility] Last Admin: 01/04/16 11:03 Dose: 5 mg Oxybutynin Chloride (Ditropan Tab) 5 mg PO TID [facility] Last Admin: 01/04/16 17:44 Dose: 5 mg Phenytoin (Dilantin) 100 mg PEG TID [facility] Last Admin: 01/04/16 17:44 Dose: 100 mg Polyethylene Glycol (Miralax) 17 gm PEG BID [facility] Last Admin: 08/21/15 11:26 Dose: Not Given - Labs Labs: 01/04/16 07:13 01/04/16 07:13 PT 10.6 SECONDS (9.7-12.2) 11/24/15 14:10 INR 1.0 11/24/15 14:10 APTT 25 SECONDS (21-34) 11/24/15 14:10 - Additional Findings Additional findings: - Constitutional Appears: No Acute Distress, Chronically Ill - Head Exam Head Exam: NORMAL INSPECTION - ENT Exam ENT Exam: Mucous Membranes Moist Additional comments: trach collar - Respiratory Exam Respiratory Exam: Clear to Ausculation Bilateral, NORMAL BREATHING PATTERN - Cardiovascular Exam Cardiovascular Exam: REGULAR RHYTHM, +S1, +S2 - GI/Abdominal Exam GI & Abdominal Exam: Soft, Normal Bowel Sounds. absent: Distended, Firm Additional comments: PEG tube - Extremities Exam Extremities Exam: Normal Capillary Refill - Neurological Exam Neurological Exam: Altered - Skin Skin Exam: Normal Color, Warm Assessment and Plan - Assessment and Plan (Free Text) Assessment: (1) Urinary tract infection Assessment & Plan: 01/05: f/u urine culture sensitivities. Continue Primaxin 500mg IVPB Q8H as per Dr. Armstrong. 01/04: Urine culture + for gram negative rods. spoke with Dr. Armstrong. swithced rocephin to primaxin 500mg IVPB Q8H [place] catheter ordered to be used with skin prep to keep it on 01/03: urinalysis had 4+ protein, positive nitrates, 3+ leukocyte esterase. Rocephin 1gm IVPB daily started. Continue [place] catheter. Ditropan 5mg PEG TID for leakage around catheter Urology consult - Dr. Oropeza - help appreciated ID on board - Dr. Armstrong - help appreciated Status: Acute (2) Anoxic encephalopathy Assessment & Plan: 01/05: No acute change in mental status. PEG tube operational, tube feedings running at 50cc/hr. 12/28: mental status unchanged; PEG tube placed at bedside by Dr. Cahn. Abdominal X-ray showed PEG tube in position with contrast entering appropriately. PEG tube approved for use. GCS 8 [id number] patient with trach in place. Pending placement training family in how to take care of patient Status: Acute (3) Respiratory failure Assessment & Plan: 01/05: no acute changes. Trach collar in place. 01/04: 7L O2 via trach. no changes 01/03: No acute changes. Trach in place @ 6L O2 12/27: tolerating trach collar 12/26: per RN, thick secretions this morning. Saturating well on trach collar. Trach collar in place. Sputum culture 12/06 + pseudomonas: probably colonization. afebrile. normal white count. CXR without infiltrates. No antibiotics for now per Dr. Armstrong tracheostomy with tube change by Dr. Chan on 11/27/15 CXR 12/08--> Tracheostomy tube appears deviated to the left which may be related to patient positioning. Clinical correlation as this does not project over the midline trachea. Bibasilar atelectasis. Mild stable nodularity at the right lung base. (see full report) Cipro started on 11/30 was stopped on 12/08. clean and dry site saturating well on 7L O2 via trach collar No blood tinged secretions noted Bronchial washing grew Pseudomonas ID consult - Dr. Armstrong - help appreciated Working on getting portable suctioning for family to practice Status: Acute (4) CAD (coronary artery disease) Assessment & Plan: Cardiac stents on 06/13/15. Continue Lisinopril 5mg PO daily Continue Plavix 75mg PO daily Continue ASA 325mg PO daily-currently held due to recent trach bleeding Status: Acute (5) Seizures Assessment & Plan: Continue dilantin 100mg via PEG TID Status: Acute (6) Bed sore Assessment & Plan: sacral ulcer. Stage II 0.5cm x 1.5cm Continue wound care, sensicare and medihoney. Continue repositioning of patient q2H. dolphin mattress. Heel air boots. Status: Acute (7) Prophylactic measure Assessment & Plan: Lovenox 40 SC daily Pepcid 20 mg PO BID [facility] Status: Acute <Donnell Ying - Last Filed: 01/05/16 13:54> Objective - Vital Signs/Intake and Output Vital Signs (last 24 hours): Temp Pulse Resp BP Pulse Ox 98.4 F 87 20 135/88 100 01/05/16 05:37 01/05/16 05:37 01/05/16 05:37 01/05/16 05:37 01/05/16 05:37 Intake and Output: 01/05/16 01/05/16 06:59 18:59 Intake Total 900 Output Total 500 Balance 400 - Medications Medications: Current Medications Aspirin (Aspirin) 325 mg PO DAILY [facility] Last Admin: 11/23/15 09:42 Dose: 325 mg Clopidogrel Bisulfate (Plavix) 75 mg PO DAILY [facility] Last Admin: 01/05/16 11:17 Dose: 75 mg Enoxaparin Sodium (Lovenox) 40 mg SC DAILY [facility] Last Admin: 01/05/16 11:17 Dose: 40 mg Famotidine (Pepcid) 20 mg PO BID [facility] Last Admin: 01/05/16 11:18 Dose: 20 mg Imipenem/Cilastatin Sodium 500 (mg/ Sodium Chloride) 100 mls @ 100 mls/hr IVPB Q6H [facility] Last Admin: 01/05/16 06:00 Dose: 100 mls/hr Lisinopril (Zestril) 5 mg PO DAILY [facility] Last Admin: 01/04/16 11:03 Dose: 5 mg Oxybutynin Chloride (Ditropan Tab) 5 mg PO TID [facility] Last Admin: 01/05/16 11:17 Dose: 5 mg Phenytoin (Dilantin) 100 mg PEG TID [facility] Last Admin: 01/05/16 11:16 Dose: 100 mg Polyethylene Glycol (Miralax) 17 gm PEG BID [facility] Last Admin: 08/21/15 11:26 Dose: Not Given - Labs Labs: 01/04/16 07:13 01/04/16 07:13 PT 10.6 SECONDS (9.7-12.2) 11/24/15 14:10 INR 1.0 11/24/15 14:10 APTT 25 SECONDS (21-34) 11/24/15 14:10 Attending/Attestation - Attestation I have personally seen and examined this patient.: Yes I have fully participated in the care of the patient.: Yes I have reviewed all pertinent clinical information, including history, physical exam and plan: Yes Notes (Text): 01/05/16 13:54 patient seen and examined at bedside with the resident. Family at bedside. Continue antibiotics for UTI. We will reinsert Yoo's catheter because of the risk of contamination of sacral wound with urine and progression of the wound. Discussed with nursing staff"
[2016-01-05] MEDS: Phenytoin 100 mg/4 ml Oral Susp UD PEG SCH ×3 (11:16→18:40)
[2016-01-05] MEDS: Enoxaparin 40 mg Syringe SC SCH (11:17)
--- NOTE | 2016-01-06 00:06 | CP.PCM.PN ---
"<Howard Lopez - Last Filed: 01/06/16 07:17> Subjective - Date & Time of Evaluation Date of Evaluation: 01/06/16 Time of Evaluation: 00:05 - Subjective Subjective: PGY1 Medicine Progress Note | Dr. Demetrice Ying's Service Patient seen and examined at bedside. Clinical status unchanged. No change in clinical status. Patient remains unresponsive to tactile/verbal/painful stimuli. ROS unobtainable. Objective - Vital Signs/Intake and Output Vital Signs (last 24 hours): Temp Pulse Resp BP Pulse Ox 98.1 F 78 19 143/79 98 01/05/16 22:00 01/05/16 22:00 01/05/16 22:00 01/05/16 22:00 01/05/16 22:00 Intake and Output: 01/05/16 01/06/16 18:59 06:59 Output Total 1000 200 Balance -1000 -200 - Medications Medications: Current Medications Aspirin (Aspirin) 325 mg PO DAILY [facility] Last Admin: 11/23/15 09:42 Dose: 325 mg Clopidogrel Bisulfate (Plavix) 75 mg PO DAILY [facility] Last Admin: 01/05/16 11:17 Dose: 75 mg Enoxaparin Sodium (Lovenox) 40 mg SC DAILY [facility] Last Admin: 01/05/16 11:17 Dose: 40 mg Famotidine (Pepcid) 20 mg PO BID [facility] Last Admin: 01/05/16 18:40 Dose: 20 mg Imipenem/Cilastatin Sodium 500 (mg/ Sodium Chloride) 100 mls @ 100 mls/hr IVPB Q6H [facility] Last Admin: 01/05/16 23:50 Dose: 100 mls/hr Lisinopril (Zestril) 5 mg PO DAILY [facility] Last Admin: 01/05/16 11:00 Dose: 5 mg Oxybutynin Chloride (Ditropan Tab) 5 mg PO TID [facility] Last Admin: 01/05/16 18:40 Dose: 5 mg Phenytoin (Dilantin) 100 mg PEG TID [facility] Last Admin: 01/05/16 18:40 Dose: 100 mg Polyethylene Glycol (Miralax) 17 gm PEG BID [facility] Last Admin: 08/21/15 11:26 Dose: Not Given - Labs Labs: 01/04/16 07:13 01/04/16 07:13 PT 10.6 SECONDS (9.7-12.2) 11/24/15 14:10 INR 1.0 11/24/15 14:10 APTT 25 SECONDS (21-34) 11/24/15 14:10 - Constitutional Appears: No Acute Distress - Head Exam Head Exam: ATRAUMATIC, NORMOCEPHALIC - Eye Exam Eye Exam: Normal appearance. absent: Scleral icterus - ENT Exam ENT Exam: Mucous Membranes Moist - Respiratory Exam Respiratory Exam: Clear to Ausculation Bilateral, NORMAL BREATHING PATTERN - Cardiovascular Exam Cardiovascular Exam: REGULAR RHYTHM, +S1, +S2. absent: Gallop, Rubs, Murmur - GI/Abdominal Exam GI & Abdominal Exam: Soft, Normal Bowel Sounds. absent: Distended Additional comments: PEG tube in place - Extremities Exam Extremities Exam: absent: Pedal Edema - Neurological Exam Neurological Exam: Altered - Skin Skin Exam: Dry, Warm Assessment and Plan - Assessment and Plan (Free Text) Assessment: (1) Urinary tract infection Assessment & Plan: 01/06: urine culture positive for proteus mirabilis (sensitive to tobramycin, zosyn, amikacin, gentamicin). baker catheter to be re-inserted. Switch to Zosyn 3.375gm IVPB Q6H per Dr. Armstrong. 01/05: f/u urine culture sensitivities. Continue Primaxin 500mg IVPB Q8H as per Dr. Armstrong. 01/04: Urine culture + for gram negative rods. spoke with Dr. Armstrong. switched rocephin to primaxin 500mg IVPB Q8H [place] catheter ordered to be used with skin prep to keep it on 01/03: urinalysis had 4+ protein, positive nitrates, 3+ leukocyte esterase. Rocephin 1gm IVPB daily started. Continue [place] catheter. Ditropan 5mg PEG TID for leakage around catheter Urology consult - Dr. Oropeza - help appreciated ID on board - Dr. Armstrong - help appreciated Status: Acute (2) Anoxic encephalopathy Assessment & Plan: 01/06: No acute change in mental status. PEG tube operational, tube feedings running at 50cc/hr. 12/28: mental status unchanged; PEG tube placed at bedside by Dr. Chan. Abdominal X-ray showed PEG tube in position with contrast entering appropriately. PEG tube approved for use. GCS 8 [id number] patient with trach in place. Pending placement training family in how to take care of patient Status: Acute (3) Respiratory failure Assessment & Plan: 01/06: no acute changes. Trach collar in place. 01/04: 7L O2 via trach. no changes 01/03: No acute changes. Trach in place @ 6L O2 12/27: tolerating trach collar 12/26: per RN, thick secretions this morning. Saturating well on trach collar. Trach collar in place. Sputum culture 12/06 + pseudomonas: probably colonization. afebrile. normal white count. CXR without infiltrates. No antibiotics for now per Dr. Armstrong tracheostomy with tube change by Dr. Chan on 11/27/15 CXR 12/08--> Tracheostomy tube appears deviated to the left which may be related to patient positioning. Clinical correlation as this does not project over the midline trachea. Bibasilar atelectasis. Mild stable nodularity at the right lung base. (see full report) Cipro started on 11/30 was stopped on 12/08. clean and dry site saturating well on 7L O2 via trach collar No blood tinged secretions noted Bronchial washing grew Pseudomonas ID consult - Dr. Armstrong - help appreciated Working on getting portable suctioning for family to practice Status: Acute (4) CAD (coronary artery disease) Assessment & Plan: Cardiac stents on 06/13/15. Continue Lisinopril 5mg PO daily Continue Plavix 75mg PO daily Continue ASA 325mg PO daily-currently held due to recent trach bleeding Status: Acute (5) Seizures Assessment & Plan: Continue dilantin 100mg via PEG TID Status: Acute (6) Bed sore Assessment & Plan: sacral ulcer. Stage II 0.5cm x 1.5cm Continue wound care, sensicare and medihoney. Continue repositioning of patient q2H. dolphin mattress. Heel air boots. Status: Acute (7) Prophylactic measure Assessment & Plan: Lovenox 40 SC daily Pepcid 20 mg PO BID [facility] Status: Acute <Donnell Ying - Last Filed: 01/06/16 14:49> Objective - Vital Signs/Intake and Output Vital Signs (last 24 hours): Temp Pulse Resp BP Pulse Ox 97.6 F 83 20 142/83 99 01/06/16 05:06 01/06/16 05:06 01/06/16 05:06 01/06/16 05:06 01/06/16 05:06 Intake and Output: 01/06/16 01/06/16 06:59 18:59 Intake Total 900 Output Total 700 Balance 200 - Medications Medications: Current Medications Aspirin (Aspirin) 325 mg PO DAILY [facility] Last Admin: 11/23/15 09:42 Dose: 325 mg Clopidogrel Bisulfate (Plavix) 75 mg PO DAILY [facility] Last Admin: 01/06/16 10:41 Dose: 75 mg Enoxaparin Sodium (Lovenox) 40 mg SC DAILY [facility] Last Admin: 01/06/16 10:41 Dose: 40 mg Famotidine (Pepcid) 20 mg PO BID [facility] Last Admin: 01/06/16 10:41 Dose: 20 mg Piperacillin Sod/Tazobactam (Sod 3.375 gm/ Sodium Chloride) 100 mls @ 200 mls/ hr IVPB Q6H [facility] Last Admin: 01/06/16 10:00 Dose: 200 mls/hr Lisinopril (Zestril) 5 mg PO DAILY [facility] Last Admin: 01/06/16 10:41 Dose: 5 mg Oxybutynin Chloride (Ditropan Tab) 5 mg PO TID [facility] Last Admin: 01/06/16 10:41 Dose: 5 mg Phenytoin (Dilantin) 100 mg PEG TID [facility] Last Admin: 01/06/16 10:40 Dose: 100 mg Polyethylene Glycol (Miralax) 17 gm PEG BID [facility] Last Admin: 08/21/15 11:26 Dose: Not Given - Labs Labs: 01/06/16 09:12 01/04/16 07:13 PT 10.6 SECONDS (9.7-12.2) 11/24/15 14:10 INR 1.0 11/24/15 14:10 APTT 25 SECONDS (21-34) 11/24/15 14:10 Attending/Attestation - Attestation I have personally seen and examined this patient.: Yes I have fully participated in the care of the patient.: Yes I have reviewed all pertinent clinical information, including history, physical exam and plan: Yes Notes (Text): 01/06/16 14:47 Patient was seen and examined at bedside with the resident. Baker's catheter was inserted yesterday. No leakage of urine around the Baker's catheter. Continue antibiotic for UTI. Continue current management for decubitus ulcers. Family present at bedside."
[2016-01-06 09:29] LABS: BASO % 0.4 % (0.0-2.0); EOS % 13.9 % (0.0-4.0); HEMOGLOBIN 12.8 g/dL (12.0-18.0); LYMPH # 1.5 K/uL (1.0-4.3); LYMPH % 20.2 % (20.0-40.0); MEAN CELL VOLUME 94.9 fL (80.0-94.0); MEAN CORPUSCULAR HEMOGLOBIN 30.9 pg (27.0-31.0); MEAN CORPUSCULAR HGB CONC 32.5 g/dL (33.0-37.0); MEAN PLATELET VOLUME 9.2 fL (7.2-11.7); MONO # 0.7 K/uL (0.0-0.8); NEUT # 4.1 K/uL (1.8-7.0); NEUT % 55.5 % (50.0-75.0); NRBC % 0.1 % (0.0-2.0); RBC 4.16 Mil/uL (4.40-5.90); RED CELL DISTRIBUTION WIDTH 14.5 % (11.5-14.5); WHITE BLOOD COUNT 7.4 K/uL (4.8-10.8)
[2016-01-06] MEDS: Piperacillin/Tazobact 3.375 GM in Sodium Chloride 100 ML IVPB SCH ×3 (10:00→19:57)
[2016-01-06] MEDS: Phenytoin 100 mg/4 ml Oral Susp UD PEG SCH ×3 (10:40→16:59)
[2016-01-06] MEDS: Enoxaparin 40 mg Syringe SC SCH (10:41)
[2016-01-07] MEDS: Piperacillin/Tazobact 3.375 GM in Sodium Chloride 100 ML IVPB SCH ×4 (01:18→20:35)
[2016-01-07] MEDS: Enoxaparin 40 mg Syringe SC SCH (10:59)
[2016-01-07] MEDS: Phenytoin 100 mg/4 ml Oral Susp UD PEG SCH ×3 (11:00→18:13)
[2016-01-07 11:30] LABS: HEMOGLOBIN 12.5 g/dL (12.0-18.0); MEAN CELL VOLUME 94.3 fL (80.0-94.0); MEAN CORPUSCULAR HEMOGLOBIN 30.8 pg (27.0-31.0); MEAN CORPUSCULAR HGB CONC 32.7 g/dL (33.0-37.0); MEAN PLATELET VOLUME 8.8 fL (7.2-11.7); RBC 4.06 Mil/uL (4.40-5.90); RED CELL DISTRIBUTION WIDTH 14.4 % (11.5-14.5); WHITE BLOOD COUNT 7.2 K/uL (4.8-10.8)
--- NOTE | 2016-01-07 14:15 | CP.PCM.PN ---
"<Howard Lopez - Last Filed: 01/07/16 15:40> Subjective - Date & Time of Evaluation Date of Evaluation: 01/07/16 Time of Evaluation: 09:18 - Subjective Subjective: PGY1 Medicine Progress Note | Dr. Demetrice Ying's Service Patient seen and examined at bedside. There is no change in clinical status. Patient remains unresponsive to tactile/verbal/painful stimuli. ROS unobtainable. PEG tube running at 50cc/hr. Objective - Vital Signs/Intake and Output Vital Signs (last 24 hours): Temp Pulse Resp BP Pulse Ox 97.8 F 101 H 19 132/83 99 01/07/16 05:24 01/07/16 05:24 01/07/16 05:24 01/07/16 05:24 01/06/16 21:36 Intake and Output: 01/07/16 01/07/16 06:59 18:59 Intake Total 550 Output Total 1350 Balance -800 - Medications Medications: Current Medications Aspirin (Aspirin) 325 mg PO DAILY [facility] Last Admin: 11/23/15 09:42 Dose: 325 mg Clopidogrel Bisulfate (Plavix) 75 mg PO DAILY [facility] Last Admin: 01/07/16 11:00 Dose: 75 mg Enoxaparin Sodium (Lovenox) 40 mg SC DAILY [facility] Last Admin: 01/07/16 10:59 Dose: 40 mg Famotidine (Pepcid) 20 mg PO BID [facility] Last Admin: 01/07/16 11:00 Dose: 20 mg Piperacillin Sod/Tazobactam (Sod 3.375 gm/ Sodium Chloride) 100 mls @ 200 mls/ hr IVPB Q6H [facility] Last Admin: 01/07/16 01:18 Dose: 200 mls/hr Lisinopril (Zestril) 5 mg PO DAILY [facility] Last Admin: 01/07/16 11:00 Dose: 5 mg Oxybutynin Chloride (Ditropan Tab) 5 mg PO TID [facility] Last Admin: 01/07/16 11:01 Dose: 5 mg Phenytoin (Dilantin) 100 mg PEG TID [facility] Last Admin: 01/07/16 11:00 Dose: 100 mg Polyethylene Glycol (Miralax) 17 gm PEG BID [facility] Last Admin: 08/21/15 11:26 Dose: Not Given - Labs Labs: 01/07/16 11:15 01/04/16 07:13 PT 10.6 SECONDS (9.7-12.2) 11/24/15 14:10 INR 1.0 11/24/15 14:10 APTT 25 SECONDS (21-34) 11/24/15 14:10 - Constitutional Appears: No Acute Distress - Head Exam Head Exam: ATRAUMATIC, NORMOCEPHALIC - Eye Exam Eye Exam: absent: Conjunctival injection, Scleral icterus - ENT Exam ENT Exam: Mucous Membranes Moist - Respiratory Exam Respiratory Exam: Clear to Ausculation Bilateral. absent: Rales, Rhonchi, Wheezes - Cardiovascular Exam Cardiovascular Exam: REGULAR RHYTHM, +S1, +S2. absent: Gallop, Rubs, Murmur - GI/Abdominal Exam GI & Abdominal Exam: Soft, Normal Bowel Sounds Additional comments: PEG tube in place - Exam Additional comments: baker catheter placed - Extremities Exam Extremities Exam: absent: Pedal Edema - Back Exam Additional comments: sacral decubitus ulcer improving - Neurological Exam Neurological Exam: Alert, Awake, Oriented x3 - Psychiatric Exam Psychiatric exam: Normal Mood - Skin Skin Exam: Dry, Warm Assessment and Plan - Assessment and Plan (Free Text) Assessment: (1) Urinary tract infection Assessment & Plan: 01/07: Continue Zosyn 3.375gm IVPB Q6H. Monitor for fevers, Monitor CBC 01/06: urine culture positive for proteus mirabilis (sensitive to tobramycin, zosyn, amikacin, gentamicin). baker catheter to be re-inserted. Switch to Zosyn 3.375gm IVPB Q6H per Dr. Armstrong. 01/05: f/u urine culture sensitivities. Continue Primaxin 500mg IVPB Q8H as per Dr. Armstrong. 01/04: Urine culture + for gram negative rods. spoke with Dr. Armtsrong. switched rocephin to primaxin 500mg IVPB Q8H [place] catheter ordered to be used with skin prep to keep it on 01/03: urinalysis had 4+ protein, positive nitrates, 3+ leukocyte esterase. Rocephin 1gm IVPB daily started. Continue [place] catheter. Ditropan 5mg PEG TID for leakage around catheter Urology consult - Dr. Oropeza - help appreciated ID on board - Dr. Armstrong - help appreciated Status: Acute (2) Anoxic encephalopathy Assessment & Plan: 01/07: No acute change in mental status. PEG tube operational, tube feedings running at 50cc/hr. 12/28: mental status unchanged; PEG tube placed at bedside by Dr. Chan. Abdominal X-ray showed PEG tube in position with contrast entering appropriately. PEG tube approved for use. GCS 8 [id number] patient with trach in place. Pending placement training family in how to take care of patient Status: Acute (3) Respiratory failure Assessment & Plan: 01/07: no acute changes. Trach collar in place @ 5L O2 01/06: no acute changes. Trach collar in place. 01/04: 7L O2 via trach. no changes 01/03: No acute changes. Trach in place @ 6L O2 12/27: tolerating trach collar 12/26: per RN, thick secretions this morning. Saturating well on trach collar. Trach collar in place. Sputum culture 12/06 + pseudomonas: probably colonization. afebrile. normal white count. CXR without infiltrates. No antibiotics for now per Dr. Armstrong tracheostomy with tube change by Dr. Chan on 11/27/15 CXR 12/08--> Tracheostomy tube appears deviated to the left which may be related to patient positioning. Clinical correlation as this does not project over the midline trachea. Bibasilar atelectasis. Mild stable nodularity at the right lung base. (see full report) Cipro started on 11/30 was stopped on 12/08. clean and dry site saturating well on 7L O2 via trach collar No blood tinged secretions noted Bronchial washing grew Pseudomonas ID consult - Dr. Armstrong - help appreciated Working on getting portable suctioning for family to practice Status: Acute (4) CAD (coronary artery disease) Assessment & Plan: Cardiac stents on 06/13/15. Continue Lisinopril 5mg PO daily Continue Plavix 75mg PO daily Continue ASA 325mg PO daily-currently held due to recent trach bleeding Status: Acute (5) Seizures Assessment & Plan: Continue dilantin 100mg via PEG TID Status: Acute (6) Bed sore Assessment & Plan: sacral ulcer. Stage II 0.5cm x 1.5cm Continue wound care, sensicare and medihoney. Continue repositioning of patient q2H. dolphin mattress. Heel air boots. Status: Acute (7) Prophylactic measure Assessment & Plan: Lovenox 40 SC daily Pepcid 20 mg PO BID [facility] Status: Acute <Donnell Ying - Last Filed: 01/07/16 16:10> Objective - Vital Signs/Intake and Output Vital Signs (last 24 hours): Temp Pulse Resp BP Pulse Ox 98 F 93 H 20 137/83 99 01/07/16 14:00 01/07/16 14:00 01/07/16 14:00 01/07/16 14:00 01/07/16 14:00 Intake and Output: 01/07/16 01/07/16 06:59 18:59 Intake Total 550 Output Total 1350 850 Balance -800 -850 - Medications Medications: Current Medications Aspirin (Aspirin) 325 mg PO DAILY [facility] Last Admin: 11/23/15 09:42 Dose: 325 mg Clopidogrel Bisulfate (Plavix) 75 mg PO DAILY [facility] Last Admin: 01/07/16 11:00 Dose: 75 mg Enoxaparin Sodium (Lovenox) 40 mg SC DAILY [facility] Last Admin: 01/07/16 10:59 Dose: 40 mg Famotidine (Pepcid) 20 mg PO BID [facility] Last Admin: 01/07/16 11:00 Dose: 20 mg Piperacillin Sod/Tazobactam (Sod 3.375 gm/ Sodium Chloride) 100 mls @ 200 mls/ hr IVPB Q6H [facility] Last Admin: 01/07/16 15:06 Dose: 200 mls/hr Lisinopril (Zestril) 5 mg PO DAILY [facility] Last Admin: 01/07/16 11:00 Dose: 5 mg Oxybutynin Chloride (Ditropan Tab) 5 mg PO TID [facility] Last Admin: 01/07/16 15:13 Dose: 5 mg Phenytoin (Dilantin) 100 mg PEG TID [facility] Last Admin: 01/07/16 15:12 Dose: 100 mg Polyethylene Glycol (Miralax) 17 gm PEG BID [facility] Last Admin: 08/21/15 11:26 Dose: Not Given - Labs Labs: 01/07/16 11:15 16 07:13 PT 10.6 SECONDS (9.7-12.2) 11/24/15 14:10 INR 1.0 11/24/15 14:10 APTT 25 SECONDS (21-34) 11/24/15 14:10 Attending/Attestation - Attestation I have personally seen and examined this patient.: Yes I have fully participated in the care of the patient.: Yes I have reviewed all pertinent clinical information, including history, physical exam and plan: Yes Notes (Text): 01/07/16 16:06 Patient seen and examined at bedside with the resident. Decubitus ulcers and examined. Stage I now. Healing very well. Continue local wound care. Baker's catheter in place and patient is urinating well. No leakage around the Baker's catheter. We will continue antibiotics for UTI. Family present at bedside."
[2016-01-08] MEDS: Piperacillin/Tazobact 3.375 GM in Sodium Chloride 100 ML IVPB SCH ×4 (01:15→21:00)
[2016-01-08 07:55] LABS: BASO % 0.4 % (0.0-2.0); EOS # 1.3 K/uL (0.0-0.7); EOS % 15.9 % (0.0-4.0); HEMOGLOBIN 12.2 g/dL (12.0-18.0); LYMPH # 1.5 K/uL (1.0-4.3); LYMPH % 18.9 % (20.0-40.0); MEAN CORPUSCULAR HEMOGLOBIN 31.1 pg (27.0-31.0); MEAN CORPUSCULAR HGB CONC 32.8 g/dL (33.0-37.0); MEAN PLATELET VOLUME 9.1 fL (7.2-11.7); MONO # 0.8 K/uL (0.0-0.8); MONO % 10.2 % (0.0-10.0); NEUT # 4.3 K/uL (1.8-7.0); NEUT % 54.6 % (50.0-75.0); NRBC % 0.1 % (0.0-2.0); RBC 3.92 Mil/uL (4.40-5.90); RED CELL DISTRIBUTION WIDTH 14.5 % (11.5-14.5); WHITE BLOOD COUNT 7.9 K/uL (4.8-10.8)
[2016-01-08 08:07] LABS: ALBUMIN 3.6 g/dL (3.5-5.0)
[2016-01-08 08:09] LABS: ALB/GLOB RATIO 0.9 (1.0-2.1); AST/SGOT 42 U/L (17-59); GFR NON-AFRICAN AMERICAN > 60
[2016-01-08 08:10] LABS: ALT/SGPT 60 U/L (21-72); BLOOD UREA NITROGEN 24 mg/dL (9-20); CALCIUM 8.7 mg/dL (8.4-10.2)
--- NOTE | 2016-01-08 09:25 | CP.PCM.PN ---
"<Howard Lopez - Last Filed: 01/08/16 17:14> Subjective - Date & Time of Evaluation Date of Evaluation: 01/08/16 Time of Evaluation: 09:25 - Subjective Subjective: PGY1 Medicine Progress Note | Dr. Demetrice Ying's Service Patient seen and examined at bedside. Clinical status remains unchanged. Patient remains unresponsive to tactile/verbal/painful stimuli. ROS unobtainable. PEG tube running at 50cc/hr. Objective - Vital Signs/Intake and Output Vital Signs (last 24 hours): Temp Pulse Resp BP Pulse Ox 97.8 F 92 H 20 132/89 99 01/08/16 05:48 01/08/16 05:48 01/08/16 05:48 01/08/16 05:48 01/08/16 05:48 Intake and Output: 01/08/16 01/08/16 06:59 18:59 Intake Total 1100 Output Total 700 Balance 400 - Medications Medications: Current Medications Aspirin (Aspirin) 325 mg PO DAILY [facility] Last Admin: 11/23/15 09:42 Dose: 325 mg Clopidogrel Bisulfate (Plavix) 75 mg PO DAILY [facility] Last Admin: 01/07/16 11:00 Dose: 75 mg Enoxaparin Sodium (Lovenox) 40 mg SC DAILY [facility] Last Admin: 01/07/16 10:59 Dose: 40 mg Famotidine (Pepcid) 20 mg PO BID [facility] Last Admin: 01/07/16 18:13 Dose: 20 mg Piperacillin Sod/Tazobactam (Sod 3.375 gm/ Sodium Chloride) 100 mls @ 200 mls/ hr IVPB Q6H [facility] Last Admin: 01/08/16 01:15 Dose: 200 mls/hr Lisinopril (Zestril) 5 mg PO DAILY [facility] Last Admin: 01/07/16 11:00 Dose: 5 mg Oxybutynin Chloride (Ditropan Tab) 5 mg PO TID [facility] Last Admin: 01/07/16 18:13 Dose: 5 mg Phenytoin (Dilantin) 100 mg PEG TID [facility] Last Admin: 01/07/16 18:13 Dose: 100 mg Polyethylene Glycol (Miralax) 17 gm PEG BID [facility] Last Admin: 08/21/15 11:26 Dose: Not Given - Labs Labs: 01/08/16 07:22 01/08/16 07:22 PT 10.6 SECONDS (9.7-12.2) 11/24/15 14:10 INR 1.0 11/24/15 14:10 APTT 25 SECONDS (21-34) 11/24/15 14:10 - Constitutional Appears: No Acute Distress - Head Exam Head Exam: ATRAUMATIC, NORMOCEPHALIC - Eye Exam Eye Exam: absent: Conjunctival injection, Scleral icterus - Neck Exam Additional comments: trach collar @ 7L O2 - Respiratory Exam Respiratory Exam: Clear to Ausculation Bilateral. absent: Rales, Rhonchi, Wheezes - Cardiovascular Exam Cardiovascular Exam: REGULAR RHYTHM, +S1, +S2. absent: Gallop, Rubs, Murmur - GI/Abdominal Exam GI & Abdominal Exam: Soft, Normal Bowel Sounds Additional comments: PEG tube in place - Exam Additional comments: baker catheter in place - Extremities Exam Extremities Exam: absent: Pedal Edema - Back Exam Additional comments: sacral ulcer improving. Healing well. - Neurological Exam Neurological Exam: Altered. absent: Alert, Awake - Skin Skin Exam: Dry, Warm Assessment and Plan - Assessment and Plan (Free Text) Assessment: (1) Urinary tract infection Assessment & Plan: 01/08: Will speak with Dr. Armstrong regarding length of IV antibiotic therapy. In the meantime, continue Zosyn 3.375gm IVPB Q6H. Continue monitoring CBC and for fevers. 01/07: Continue Zosyn 3.375gm IVPB Q6H. Monitor for fevers, Monitor CBC 01/06: urine culture positive for proteus mirabilis (sensitive to tobramycin, zosyn, amikacin, gentamicin). baker catheter to be re-inserted. Switch to Zosyn 3.375gm IVPB Q6H per Dr. Armstrong. 01/05: f/u urine culture sensitivities. Continue Primaxin 500mg IVPB Q8H as per Dr. Armstrong. 01/04: Urine culture + for gram negative rods. spoke with Dr. Armstrong. switched rocephin to primaxin 500mg IVPB Q8H [place] catheter ordered to be used with skin prep to keep it on 01/03: urinalysis had 4+ protein, positive nitrates, 3+ leukocyte esterase. Rocephin 1gm IVPB daily started. Continue [place] catheter. Ditropan 5mg PEG TID for leakage around catheter Urology consult - Dr. Oropeza - help appreciated ID on board - Dr. Armstrong - help appreciated Status: Acute (2) Anoxic encephalopathy Assessment & Plan: 01/08: No acute change in mental status. PEG tube operational, tube feedings running at 50cc/hr at night and bolus feeds during the day 12/28: mental status unchanged; PEG tube placed at bedside by Dr. Chan. Abdominal X-ray showed PEG tube in position with contrast entering appropriately. PEG tube approved for use. GCS 8 [id number] patient with trach in place. Pending placement training family in how to take care of patient Status: Acute (3) Respiratory failure Assessment & Plan: 01/08: no clinical change. trach collar at 7L O2 01/07: no acute changes. Trach collar in place @ 5L O2 01/06: no acute changes. Trach collar in place. 01/04: 7L O2 via trach. no changes 01/03: No acute changes. Trach in place @ 6L O2 12/27: tolerating trach collar 12/26: per RN, thick secretions this morning. Saturating well on trach collar. Trach collar in place. Sputum culture 12/06 + pseudomonas: probably colonization. afebrile. normal white count. CXR without infiltrates. No antibiotics for now per Dr. Armstrong tracheostomy with tube change by Dr. Chan on 11/27/15 CXR 12/08--> Tracheostomy tube appears deviated to the left which may be related to patient positioning. Clinical correlation as this does not project over the midline trachea. Bibasilar atelectasis. Mild stable nodularity at the right lung base. (see full report) Cipro started on 11/30 was stopped on 12/08. clean and dry site saturating well on 7L O2 via trach collar No blood tinged secretions noted Bronchial washing grew Pseudomonas ID consult - Dr. Armstrong - help appreciated Working on getting portable suctioning for family to practice Status: Acute (4) CAD (coronary artery disease) Assessment & Plan: Cardiac stents on 06/13/15. Continue Lisinopril 5mg PO daily Continue Plavix 75mg PO daily Continue ASA 325mg PO daily-currently held due to recent trach bleeding Status: Acute (5) Seizures Assessment & Plan: Continue dilantin 100mg PEG TID Status: Acute (6) Bed sore Assessment & Plan: 01/08: healing. continue wound care, sensicare, and medihoney sacral ulcer. Stage II 0.5cm x 1.5cm Continue wound care, sensicare and medihoney. Continue repositioning of patient q2H. dolphin mattress. Heel air boots. Status: Acute (7) Prophylactic measure Assessment & Plan: Lovenox 40 SC daily Pepcid 20 mg PO BID [facility] Status: Acute <Donnell Ying M - Last Filed: 01/08/16 17:32> Objective - Vital Signs/Intake and Output Vital Signs (last 24 hours): Temp Pulse Resp BP Pulse Ox 97.9 F 104 H 20 131/84 100 01/08/16 13:51 01/08/16 13:51 01/08/16 13:51 01/08/16 13:51 01/08/16 13:51 Intake and Output: 01/08/16 01/08/16 06:59 18:59 Intake Total 1100 Output Total 700 400 Balance 400 -400 - Medications Medications: Current Medications Aspirin (Aspirin) 325 mg PO DAILY [facility] Last Admin: 11/23/15 09:42 Dose: 325 mg Clopidogrel Bisulfate (Plavix) 75 mg PO DAILY [facility] Last Admin: 01/08/16 11:31 Dose: 75 mg Enoxaparin Sodium (Lovenox) 40 mg SC DAILY [facility] Last Admin: 01/08/16 11:30 Dose: 40 mg Famotidine (Pepcid) 20 mg PO BID [facility] Last Admin: 01/08/16 11:31 Dose: 20 mg Piperacillin Sod/Tazobactam (Sod 3.375 gm/ Sodium Chloride) 100 mls @ 200 mls/ hr IVPB Q6H [facility] Last Admin: 01/08/16 16:10 Dose: 200 mls/hr Lisinopril (Zestril) 5 mg PO DAILY [facility] Last Admin: 01/08/16 11:31 Dose: 5 mg Oxybutynin Chloride (Ditropan Tab) 5 mg PO TID [facility] Last Admin: 01/08/16 11:31 Dose: 5 mg Phenytoin (Dilantin) 100 mg PEG TID [facility] Last Admin: 01/08/16 15:30 Dose: 100 mg Polyethylene Glycol (Miralax) 17 gm PEG BID [facility] Last Admin: 08/21/15 11:26 Dose: Not Given - Labs Labs: 01/08/16 07:22 01/08/16 07:22 PT 10.6 SECONDS (9.7-12.2) 11/24/15 14:10 INR 1.0 11/24/15 14:10 APTT 25 SECONDS (21-34) 11/24/15 14:10 Attending/Attestation - Attestation I have personally seen and examined this patient.: Yes I have fully participated in the care of the patient.: Yes I have reviewed all pertinent clinical information, including history, physical exam and plan: Yes Notes (Text): 01/08/16 17:30 Patient seen and examined at bedside with the resident. No change in clinical condition. Baker's catheter is functioning properly. No discharge of urine around the Baker 's catheter. Continue IV antibiotics. Continue care of sacral decubitus ulcer."
[2016-01-08] MEDS: Enoxaparin 40 mg Syringe SC SCH (11:30)
[2016-01-08] MEDS: Phenytoin 100 mg/4 ml Oral Susp UD PEG SCH ×3 (11:30→18:44)
[2016-01-09] MEDS: Phenytoin 100 mg/4 ml Oral Susp UD PEG SCH ×2 (14:01→18:38)
--- NOTE | 2016-01-09 14:01 | CP.PCM.PN ---
"<Howard Lopez - Last Filed: 01/09/16 17:39> Subjective - Date & Time of Evaluation Date of Evaluation: 01/09/16 Time of Evaluation: 08:00 - Subjective Subjective: PGY1 Medicine Progress Note | Dr. Demetrice Ying's Service Patient seen and examined at bedside. No change in clinical status. Patient remains unresponsive to tactile/verbal/painful stimuli. ROS unobtainable. PEG tube running at 50cc/hr. Objective - Vital Signs/Intake and Output Vital Signs (last 24 hours): Temp Pulse Resp BP Pulse Ox 98.2 F 63 18 118/60 95 01/09/16 13:32 01/09/16 13:32 01/09/16 13:32 01/09/16 13:32 01/09/16 13:32 Intake and Output: 01/09/16 01/09/16 06:59 18:59 Output Total 350 Balance -350 - Medications Medications: Current Medications Aspirin (Aspirin) 325 mg PO DAILY [facility] Last Admin: 11/23/15 09:42 Dose: 325 mg Clopidogrel Bisulfate (Plavix) 75 mg PO DAILY [facility] Last Admin: 01/08/16 11:31 Dose: 75 mg Enoxaparin Sodium (Lovenox) 40 mg SC DAILY [facility] Last Admin: 01/08/16 11:30 Dose: 40 mg Famotidine (Pepcid) 20 mg PO BID [facility] Last Admin: 01/08/16 18:44 Dose: 20 mg Piperacillin Sod/Tazobactam (Sod 3.375 gm/ Sodium Chloride) 100 mls @ 200 mls/ hr IVPB Q6H [facility] Last Admin: 01/08/16 21:00 Dose: 200 mls/hr Lisinopril (Zestril) 5 mg PO DAILY [facility] Last Admin: 01/08/16 11:31 Dose: 5 mg Oxybutynin Chloride (Ditropan Tab) 5 mg PO TID [facility] Last Admin: 01/08/16 15:00 Dose: 5 mg Phenytoin (Dilantin) 100 mg PEG TID [facility] Last Admin: 01/08/16 18:44 Dose: 100 mg Polyethylene Glycol (Miralax) 17 gm PEG BID [facility] Last Admin: 08/21/15 11:26 Dose: Not Given - Labs Labs: 01/08/16 07:22 01/08/16 07:22 PT 10.6 SECONDS (9.7-12.2) 11/24/15 14:10 INR 1.0 11/24/15 14:10 APTT 25 SECONDS (21-34) 11/24/15 14:10 - Constitutional Appears: No Acute Distress - Head Exam Head Exam: ATRAUMATIC, NORMOCEPHALIC - Eye Exam Eye Exam: EOMI, PERRL - ENT Exam ENT Exam: Mucous Membranes Moist - Neck Exam Additional comments: trach collar in place - Cardiovascular Exam Cardiovascular Exam: REGULAR RHYTHM, +S1, +S2. absent: Gallop, Rubs, Murmur - GI/Abdominal Exam GI & Abdominal Exam: Soft, Normal Bowel Sounds Additional comments: PEG tube - Extremities Exam Extremities Exam: absent: Pedal Edema - Neurological Exam Neurological Exam: Altered. absent: Alert - Skin Skin Exam: Dry, Warm Additional comments: dry/scaly skin at L upper thigh Assessment and Plan - Assessment and Plan (Free Text) Assessment: (1) Urinary tract infection Assessment & Plan: 01/09: Will speak with Dr. Armstrong regarding length of IV antibiotic therapy. In the meantime, continue Zosyn 3.375gm IVPB Q6H. Continue monitoring CBC and for fevers. 01/07: Continue Zosyn 3.375gm IVPB Q6H. Monitor for fevers, Monitor CBC 01/06: urine culture positive for proteus mirabilis (sensitive to tobramycin, zosyn, amikacin, gentamicin). baker catheter to be re-inserted. Switch to Zosyn 3.375gm IVPB Q6H per Dr. Armstrong. 01/05: f/u urine culture sensitivities. Continue Primaxin 500mg IVPB Q8H as per Dr. Armstrong. 01/04: Urine culture + for gram negative rods. spoke with Dr. Armstrong. switched rocephin to primaxin 500mg IVPB Q8H [place] catheter ordered to be used with skin prep to keep it on 01/03: urinalysis had 4+ protein, positive nitrates, 3+ leukocyte esterase. Rocephin 1gm IVPB daily started. Continue [place] catheter. Ditropan 5mg PEG TID for leakage around catheter Urology consult - Dr. Oropeza - help appreciated ID on board - Dr. Armstrong - help appreciated Status: Acute (2) Anoxic encephalopathy Assessment & Plan: 01/09: No acute change in mental status. PEG tube operational, tube feedings running at 50cc/hr at night and bolus feeds during the day 12/28: mental status unchanged; PEG tube placed at bedside by Dr. Chan. Abdominal X-ray showed PEG tube in position with contrast entering appropriately. PEG tube approved for use. GCS 8 [id number] patient with trach in place. Pending placement training family in how to take care of patient Status: Acute (3) Respiratory failure Assessment & Plan: 01/08: no clinical change. trach collar 12/27: tolerating trach collar 12/26: per RN, thick secretions this morning. Saturating well on trach collar. Trach collar in place. Sputum culture 12/06 + pseudomonas: probably colonization. afebrile. normal white count. CXR without infiltrates. No antibiotics for now per Dr. Armstrong tracheostomy with tube change by Dr. Chan on 11/27/15 CXR 12/08--> Tracheostomy tube appears deviated to the left which may be related to patient positioning. Clinical correlation as this does not project over the midline trachea. Bibasilar atelectasis. Mild stable nodularity at the right lung base. (see full report) Cipro started on 11/30 was stopped on 12/08. clean and dry site saturating well on 7L O2 via trach collar No blood tinged secretions noted Bronchial washing grew Pseudomonas ID consult - Dr. Armstrong - help appreciated Working on getting portable suctioning for family to practice Status: Acute (4) CAD (coronary artery disease) Assessment & Plan: Cardiac stents on 06/13/15. Continue Lisinopril 5mg PO daily Continue Plavix 75mg PO daily Continue ASA 325mg PO daily-currently held due to recent trach bleeding Status: Acute (5) Seizures Assessment & Plan: Continue dilantin 100mg PEG TID Status: Acute (6) Bed sore Assessment & Plan: 01/08: healing. continue wound care, sensicare, and medihoney sacral ulcer. Stage II 0.5cm x 1.5cm Continue wound care, sensicare and medihoney. Continue repositioning of patient q2H. dolphin mattress. Heel air boots. Status: Acute (7) Prophylactic measure Assessment & Plan: Lovenox 40 SC daily Pepcid 20 mg PO BID [facility] Status: Acute <Donnell Ying M - Last Filed: 01/10/16 09:41> Objective - Vital Signs/Intake and Output Vital Signs (last 24 hours): Temp Pulse Resp BP Pulse Ox 98.6 F 97 H 20 118/83 98 01/10/16 05:53 01/10/16 05:53 01/10/16 05:53 01/10/16 05:53 01/10/16 05:53 Intake and Output: 01/10/16 01/10/16 06:59 18:59 Intake Total 840 Output Total 1500 Balance -660 - Medications Medications: Current Medications Aspirin (Aspirin) 325 mg PO DAILY [facility] Last Admin: 11/23/15 09:42 Dose: 325 mg Clopidogrel Bisulfate (Plavix) 75 mg PO DAILY [facility] Last Admin: 01/08/16 11:31 Dose: 75 mg Enoxaparin Sodium (Lovenox) 40 mg SC DAILY [facility] Last Admin: 01/08/16 11:30 Dose: 40 mg Famotidine (Pepcid) 20 mg PO BID [facility] Last Admin: 01/09/16 18:38 Dose: 20 mg Piperacillin Sod/Tazobactam (Sod 3.375 gm/ Sodium Chloride) 100 mls @ 200 mls/ hr IVPB Q6H [facility] Last Admin: 01/10/16 08:22 Dose: 200 mls/hr Lisinopril (Zestril) 5 mg PO DAILY [facility] Last Admin: 01/08/16 11:31 Dose: 5 mg Oxybutynin Chloride (Ditropan Tab) 5 mg PO TID [facility] Last Admin: 01/09/16 18:38 Dose: 5 mg Phenytoin (Dilantin) 100 mg PEG TID [facility] Last Admin: 01/09/16 18:38 Dose: 100 mg Polyethylene Glycol (Miralax) 17 gm PEG BID [facility] Last Admin: 08/21/15 11:26 Dose: Not Given - Labs Labs: 01/08/16 07:22 01/08/16 07:22 PT 10.6 SECONDS (9.7-12.2) 11/24/15 14:10 INR 1.0 11/24/15 14:10 APTT 25 SECONDS (21-34) 11/24/15 14:10 Attending/Attestation - Attestation I have personally seen and examined this patient.: Yes I have fully participated in the care of the patient.: Yes I have reviewed all pertinent clinical information, including history, physical exam and plan: Yes Notes (Text): 01/10/16 09:40 Patient seen and examined with the resident on 01/09/16. This late computer entry. Patient has no change in clinical condition. We'll continue current management. Continue IV antibiotics for UTI. Turn and position patient every 2 hours. Local wound care for decubitus ulcer which is healed"
[2016-01-09] MEDS: Piperacillin/Tazobact 3.375 GM in Sodium Chloride 100 ML IVPB SCH ×2 (14:41→19:00)
[2016-01-10] MEDS: Piperacillin/Tazobact 3.375 GM in Sodium Chloride 100 ML IVPB SCH ×4 (01:51→22:00)
[2016-01-10] MEDS: Enoxaparin 40 mg Syringe SC SCH (10:20)
[2016-01-10] MEDS: Phenytoin 100 mg/4 ml Oral Susp UD PEG SCH ×3 (10:20→18:07)
--- NOTE | 2016-01-10 15:02 | CP.PCM.PN ---
"<Howard Lopez - Last Filed: 01/10/16 18:40> Subjective - Date & Time of Evaluation Date of Evaluation: 01/10/16 Time of Evaluation: 09:22 - Subjective Subjective: PGY1 Medicine Progress Note | Dr. Demetrice Ying's Service Patient seen and examined at bedside. There is no change in clinical status. Patient remains unresponsive to tactile/verbal/painful stimuli. ROS unobtainable. PEG tube running at 50cc/hr. Objective - Vital Signs/Intake and Output Vital Signs (last 24 hours): Temp Pulse Resp BP Pulse Ox 98.4 F 90 20 133/81 100 01/10/16 14:00 01/10/16 14:00 01/10/16 14:00 01/10/16 14:00 01/10/16 14:00 Intake and Output: 01/10/16 01/10/16 06:59 18:59 Intake Total 840 Output Total 1500 550 Balance -660 -550 - Medications Medications: Current Medications Aspirin (Aspirin) 325 mg PO DAILY [facility] Last Admin: 11/23/15 09:42 Dose: 325 mg Clopidogrel Bisulfate (Plavix) 75 mg PO DAILY [facility] Last Admin: 01/10/16 10:21 Dose: 75 mg Enoxaparin Sodium (Lovenox) 40 mg SC DAILY [facility] Last Admin: 01/10/16 10:20 Dose: 40 mg Famotidine (Pepcid) 20 mg PO BID [facility] Last Admin: 01/10/16 10:20 Dose: 20 mg Piperacillin Sod/Tazobactam (Sod 3.375 gm/ Sodium Chloride) 100 mls @ 200 mls/ hr IVPB Q6H [facility] Last Admin: 01/10/16 14:23 Dose: 200 mls/hr Lisinopril (Zestril) 5 mg PO DAILY [facility] Last Admin: 01/10/16 10:21 Dose: 5 mg Oxybutynin Chloride (Ditropan Tab) 5 mg PO TID [facility] Last Admin: 01/10/16 14:22 Dose: 5 mg Phenytoin (Dilantin) 100 mg PEG TID [facility] Last Admin: 01/10/16 14:22 Dose: 100 mg Polyethylene Glycol (Miralax) 17 gm PEG BID [facility] Last Admin: 08/21/15 11:26 Dose: Not Given - Labs Labs: 01/08/16 07:22 01/08/16 07:22 PT 10.6 SECONDS (9.7-12.2) 11/24/15 14:10 INR 1.0 11/24/15 14:10 APTT 25 SECONDS (21-34) 11/24/15 14:10 - Additional Findings Additional findings: - Constitutional Appears: No Acute Distress - Head Exam Head Exam: ATRAUMATIC, NORMOCEPHALIC - Eye Exam Eye Exam: EOMI, PERRL - ENT Exam ENT Exam: Mucous Membranes Moist - Neck Exam Additional comments: trach collar in place - Cardiovascular Exam Cardiovascular Exam: REGULAR RHYTHM, +S1, +S2. absent: Gallop, Rubs, Murmur - GI/Abdominal Exam GI & Abdominal Exam: Soft, Normal Bowel Sounds Additional comments: PEG tube intact - Exam Additional comments: baker catheter in place - Extremities Exam Extremities Exam: absent: Pedal Edema - Neurological Exam Neurological Exam: Altered. absent: Alert - Skin Skin Exam: Dry, Warm Additional comments: dry/scaly skin at L upper thigh, improving Assessment and Plan - Assessment and Plan (Free Text) Assessment: (1) Urinary tract infection Assessment & Plan: 01/10: continue Zosyn 3.375gm IVPB Q6H (day 4) 01/09: Will speak with Dr. Armstrong regarding length of IV antibiotic therapy. In the meantime, continue Zosyn 3.375gm IVPB Q6H. Continue monitoring CBC and for fevers. 01/07: Continue Zosyn 3.375gm IVPB Q6H. Monitor for fevers, Monitor CBC 01/06: urine culture positive for proteus mirabilis (sensitive to tobramycin, zosyn, amikacin, gentamicin). baker catheter to be re-inserted. Switch to Zosyn 3.375gm IVPB Q6H per Dr. Armstrong. 01/05: f/u urine culture sensitivities. Continue Primaxin 500mg IVPB Q8H as per Dr. Armstrong. 01/04: Urine culture + for gram negative rods. spoke with Dr. Armstrong. switched rocephin to primaxin 500mg IVPB Q8H [place] catheter ordered to be used with skin prep to keep it on 01/03: urinalysis had 4+ protein, positive nitrates, 3+ leukocyte esterase. Rocephin 1gm IVPB daily started. Continue [place] catheter. Ditropan 5mg PEG TID for leakage around catheter Urology consult - Dr. Oropeza - help appreciated ID on board - Dr. Armstrong - herbie appreciated Status: Acute (2) Anoxic encephalopathy Assessment & Plan: 01/10: No acute change in mental status. PEG tube operational, tube feedings running at 50cc/hr at night and bolus feeds during the day 12/28: mental status unchanged; PEG tube placed at bedside by Dr. Chan. Abdominal X-ray showed PEG tube in position with contrast entering appropriately. PEG tube approved for use. GCS 8 [id number] patient with trach in place. Pending placement training family in how to take care of patient Status: Acute (3) Respiratory failure Assessment & Plan: 01/10: no clinical change. trach collar 12/27: tolerating trach collar 12/26: per RN, thick secretions this morning. Saturating well on trach collar. Trach collar in place. Sputum culture 12/06 + pseudomonas: probably colonization. afebrile. normal white count. CXR without infiltrates. No antibiotics for now per Dr. Armstrong tracheostomy with tube change by Dr. Chan on 11/27/15 CXR 12/08--> Tracheostomy tube appears deviated to the left which may be related to patient positioning. Clinical correlation as this does not project over the midline trachea. Bibasilar atelectasis. Mild stable nodularity at the right lung base. (see full report) Cipro started on 11/30 was stopped on 12/08. clean and dry site saturating well on 7L O2 via trach collar No blood tinged secretions noted Bronchial washing grew Pseudomonas ID consult - Dr. Armstrong - herbie appreciated Working on getting portable suctioning for family to practice Status: Acute (4) CAD (coronary artery disease) Assessment & Plan: Cardiac stents on 06/13/15. Continue Lisinopril 5mg PO daily Continue Plavix 75mg PO daily Continue ASA 325mg PO daily-currently held due to recent trach bleeding Status: Acute (5) Seizures Assessment & Plan: Continue dilantin 100mg PEG TID Status: Acute (6) Bed sore Assessment & Plan: 01/08: healing. continue wound care, sensicare, and medihoney sacral ulcer. Stage II 0.5cm x 1.5cm Continue wound care, sensicare and medihoney. Continue repositioning of patient q2H. dolphin mattress. Heel air boots. Status: Acute (7) Prophylactic measure Assessment & Plan: Lovenox 40 SC daily Pepcid 20 mg PO BID [facility] Status: Acute <Donnell Ying - Last Filed: 01/11/16 09:26> Objective - Vital Signs/Intake and Output Vital Signs (last 24 hours): Temp Pulse Resp BP Pulse Ox 98.5 F 84 20 128/83 99 01/11/16 05:39 01/11/16 05:39 01/11/16 05:39 01/11/16 05:39 01/11/16 05:39 Intake and Output: 01/11/16 01/11/16 06:59 18:59 Output Total 400 Balance -400 - Medications Medications: Current Medications Aspirin (Aspirin) 325 mg PO DAILY [facility] Last Admin: 11/23/15 09:42 Dose: 325 mg Clopidogrel Bisulfate (Plavix) 75 mg PO DAILY [facility] Last Admin: 01/10/16 10:21 Dose: 75 mg Enoxaparin Sodium (Lovenox) 40 mg SC DAILY [facility] Last Admin: 01/10/16 10:20 Dose: 40 mg Famotidine (Pepcid) 20 mg PO BID [facility] Last Admin: 01/10/16 18:08 Dose: 20 mg Piperacillin Sod/Tazobactam (Sod 3.375 gm/ Sodium Chloride) 100 mls @ 200 mls/ hr IVPB Q6H [facility] Stop: 01/13/16 22:31 Last Admin: 01/11/16 03:35 Dose: 200 mls/hr Lisinopril (Zestril) 5 mg PO DAILY [facility] Last Admin: 01/10/16 10:21 Dose: 5 mg Oxybutynin Chloride (Ditropan Tab) 5 mg PO TID [facility] Last Admin: 01/10/16 18:07 Dose: 5 mg Phenytoin (Dilantin) 100 mg PEG TID [facility] Last Admin: 01/10/16 18:07 Dose: 100 mg Polyethylene Glycol (Miralax) 17 gm PEG BID [facility] Last Admin: 08/21/15 11:26 Dose: Not Given - Labs Labs: 01/08/16 07:22 01/08/16 07:22 PT 10.6 SECONDS (9.7-12.2) 11/24/15 14:10 INR 1.0 11/24/15 14:10 APTT 25 SECONDS (21-34) 11/24/15 14:10 Attending/Attestation - Attestation I have personally seen and examined this patient.: Yes I have fully participated in the care of the patient.: Yes I have reviewed all pertinent clinical information, including history, physical exam and plan: Yes Notes (Text): 01/11/16 09:23 patient seen and examined with the resident. This note is for him to. This is late computer entry. There is no change in the clinical condition. We will continue current management. Continue to turn and position every 2 hours. Local wound care for the decubitus ulcer which is healing very well. Family present at bedside."
[2016-01-11] MEDS: Piperacillin/Tazobact 3.375 GM in Sodium Chloride 100 ML IVPB SCH ×4 (03:35→21:30)
--- NOTE | 2016-01-11 08:46 | CP.PCM.PN ---
"<Howard Lopez - Last Filed: 01/11/16 19:59> Subjective - Date & Time of Evaluation Date of Evaluation: 01/11/16 Time of Evaluation: :19 - Subjective Subjective: PGY1 Medicine Progress Note | Dr. Demetrice Ying's Service Patient seen and examined at bedside. Pt's clinical status remains the same. Patient remains unresponsive to tactile/verbal/painful stimuli. ROS unobtainable. PEG tube running at 50cc/hr. Objective - Vital Signs/Intake and Output Vital Signs (last 24 hours): Temp Pulse Resp BP Pulse Ox 98.5 F 84 20 128/83 99 01/11/16 05:39 01/11/16 05:39 01/11/16 05:39 01/11/16 05:39 01/11/16 05:39 Intake and Output: 01/11/16 01/11/16 06:59 18:59 Output Total 400 Balance -400 - Medications Medications: Current Medications Aspirin (Aspirin) 325 mg PO DAILY [facility] Last Admin: 11/23/15 09:42 Dose: 325 mg Clopidogrel Bisulfate (Plavix) 75 mg PO DAILY [facility] Last Admin: 01/10/16 10:21 Dose: 75 mg Enoxaparin Sodium (Lovenox) 40 mg SC DAILY [facility] Last Admin: 01/10/16 10:20 Dose: 40 mg Famotidine (Pepcid) 20 mg PO BID [facility] Last Admin: 01/10/16 18:08 Dose: 20 mg Piperacillin Sod/Tazobactam (Sod 3.375 gm/ Sodium Chloride) 100 mls @ 200 mls/ hr IVPB Q6H [facility] Stop: 01/13/16 22:31 Last Admin: 01/11/16 03:35 Dose: 200 mls/hr Lisinopril (Zestril) 5 mg PO DAILY [facility] Last Admin: 01/10/16 10:21 Dose: 5 mg Oxybutynin Chloride (Ditropan Tab) 5 mg PO TID [facility] Last Admin: 01/10/16 18:07 Dose: 5 mg Phenytoin (Dilantin) 100 mg PEG TID [facility] Last Admin: 01/10/16 18:07 Dose: 100 mg Polyethylene Glycol (Miralax) 17 gm PEG BID [facility] Last Admin: 08/21/15 11:26 Dose: Not Given - Labs Labs: 01/08/16 07:22 01/08/16 07:22 PT 10.6 SECONDS (9.7-12.2) 11/24/15 14:10 INR 1.0 11/24/15 14:10 APTT 25 SECONDS (21-34) 11/24/15 14:10 - Constitutional Appears: No Acute Distress - Head Exam Head Exam: ATRAUMATIC, NORMOCEPHALIC - Eye Exam Eye Exam: Normal appearance. absent: Conjunctival injection, Scleral icterus - ENT Exam ENT Exam: Mucous Membranes Moist - Neck Exam Additional comments: trach collar - Respiratory Exam Respiratory Exam: NORMAL BREATHING PATTERN Additional comments: coarse breath sounds - Cardiovascular Exam Cardiovascular Exam: REGULAR RHYTHM, +S1, +S2. absent: Gallop, Rubs, Murmur - GI/Abdominal Exam GI & Abdominal Exam: Soft, Normal Bowel Sounds Additional comments: PEG tube intact - Exam Additional comments: baker catheter in place - Extremities Exam Extremities Exam: absent: Pedal Edema - Neurological Exam Neurological Exam: Altered - Skin Skin Exam: Dry, Warm Additional comments: dry/scaly skin at L upper thigh, improving Assessment and Plan - Assessment and Plan (Free Text) Assessment: (1) Urinary tract infection Assessment & Plan: 01/11: continue Zosyn 3.375gm IVPB Q6H (day 5) will discontinue on 01/13/1601/09: Will speak with Dr. Armstrong regarding length of IV antibiotic therapy. In the meantime, continue Zosyn 3.375gm IVPB Q6H. Continue monitoring CBC and for fevers. 01/07: Continue Zosyn 3.375gm IVPB Q6H. Monitor for fevers, Monitor CBC 01/06: urine culture positive for proteus mirabilis (sensitive to tobramycin, zosyn, amikacin, gentamicin). baker catheter to be re-inserted. Switch to Zosyn 3.375gm IVPB Q6H per Dr. Armstrong. 01/05: f/u urine culture sensitivities. Continue Primaxin 500mg IVPB Q8H as per Dr. Armstrong. 01/04: Urine culture + for gram negative rods. spoke with Dr. Armstrong. switched rocephin to primaxin 500mg IVPB Q8H [place] catheter ordered to be used with skin prep to keep it on 01/03: urinalysis had 4+ protein, positive nitrates, 3+ leukocyte esterase. Rocephin 1gm IVPB daily started. Continue [place] catheter. Ditropan 5mg PEG TID for leakage around catheter Urology consult - Dr. Oropeza - help appreciated ID on board - Dr. Armstrong - help appreciated Status: Acute (2) Anoxic encephalopathy Assessment & Plan: 01/11: No acute change in mental status. PEG tube operational, tube feedings running at 50cc/hr at night and bolus feeds during the day 12/28: mental status unchanged; PEG tube placed at bedside by Dr. Chan. Abdominal X-ray showed PEG tube in position with contrast entering appropriately. PEG tube approved for use. GCS 8 [id number] patient with trach in place. Pending placement training family in how to take care of patient Status: Acute (3) Respiratory failure Assessment & Plan: 01/11: no clinical change. trach collar 12/27: tolerating trach collar 12/26: per RN, thick secretions this morning. Saturating well on trach collar. Trach collar in place. Sputum culture 12/06 + pseudomonas: probably colonization. afebrile. normal white count. CXR without infiltrates. No antibiotics for now per Dr. Armstrong tracheostomy with tube change by Dr. Chan on 11/27/15 CXR 12/08--> Tracheostomy tube appears deviated to the left which may be related to patient positioning. Clinical correlation as this does not project over the midline trachea. Bibasilar atelectasis. Mild stable nodularity at the right lung base. (see full report) Cipro started on 11/30 was stopped on 12/08. clean and dry site saturating well on 7L O2 via trach collar No blood tinged secretions noted Bronchial washing grew Pseudomonas ID consult - Dr. Armstrong - herbie appreciated Working on getting portable suctioning for family to practice Status: Acute (4) CAD (coronary artery disease) Assessment & Plan: Cardiac stents on 06/13/15. Continue Lisinopril 5mg PO daily Continue Plavix 75mg PO daily Continue ASA 325mg PO daily-currently held due to recent trach bleeding Status: Acute (5) Seizures Assessment & Plan: Continue dilantin 100mg PEG TID Status: Acute (6) Bed sore Assessment & Plan: 01/08: healing. continue wound care, sensicare, and medihoney sacral ulcer. Stage II 0.5cm x 1.5cm Continue wound care, sensicare and medihoney. Continue repositioning of patient q2H. dolphin mattress. Heel air boots. Status: Acute (7) Prophylactic measure Assessment & Plan: Lovenox 40 SC daily Pepcid 20 mg PO BID [facility] Status: Acute <Donnell Ying M - Last Filed: 01/12/16 07:30> Objective - Vital Signs/Intake and Output Vital Signs (last 24 hours): Temp Pulse Resp BP Pulse Ox 98.1 F 88 20 121/79 100 01/12/16 05:00 01/12/16 05:00 01/12/16 05:00 01/12/16 05:00 01/12/16 05:00 Intake and Output: 01/12/16 01/12/16 06:59 18:59 Output Total 650 Balance -650 - Medications Medications: Current Medications Aspirin (Aspirin) 325 mg PO DAILY [facility] Last Admin: 11/23/15 09:42 Dose: 325 mg Clopidogrel Bisulfate (Plavix) 75 mg PO DAILY [facility] Last Admin: 01/11/16 10:19 Dose: 75 mg Enoxaparin Sodium (Lovenox) 40 mg SC DAILY [facility] Last Admin: 01/11/16 10:18 Dose: 40 mg Famotidine (Pepcid) 20 mg PO BID [facility] Last Admin: 01/11/16 17:43 Dose: 20 mg Piperacillin Sod/Tazobactam (Sod 3.375 gm/ Sodium Chloride) 100 mls @ 200 mls/ hr IVPB Q6H [facility] Stop: 01/13/16 22:31 Last Admin: 01/12/16 03:40 Dose: 200 mls/hr Lisinopril (Zestril) 5 mg PO DAILY [facility] Last Admin: 01/11/16 10:18 Dose: 5 mg Oxybutynin Chloride (Ditropan Tab) 5 mg PO TID [facility] Last Admin: 01/11/16 17:43 Dose: 5 mg Phenytoin (Dilantin) 100 mg PEG TID [facility] Last Admin: 01/11/16 17:44 Dose: 100 mg Polyethylene Glycol (Miralax) 17 gm PEG BID [facility] Last Admin: 08/21/15 11:26 Dose: Not Given - Labs Labs: 01/08/16 07:22 02/16/16 07:22 PT 10.6 SECONDS (9.7-12.2) 11/24/15 14:10 INR 1.0 11/24/15 14:10 APTT 25 SECONDS (21-34) 11/24/15 14:10 Attending/Attestation - Attestation I have personally seen and examined this patient.: Yes I have fully participated in the care of the patient.: Yes I have reviewed all pertinent clinical information, including history, physical exam and plan: Yes Notes (Text): 01/12/16 07:29 Patient seen and examined with the resident at bedside on 01/11/16. This is a late computer entry. There is no change in clinical condition of the patient. We will continue current management. Continue local wound care of decubitus ulcer which is healing. Continue turn and position the patient every 2 hours"
[2016-01-11] MEDS: Enoxaparin 40 mg Syringe SC SCH (10:18)
[2016-01-11] MEDS: Phenytoin 100 mg/4 ml Oral Susp UD PEG SCH ×3 (10:19→17:44)
--- NOTE | 2016-01-12 02:37 | CP.PCM.PN ---
<Nely Pate - Last Filed: 01/12/16 02:32> Subjective - Date & Time of Evaluation Date of Evaluation: 01/12/16 Time of Evaluation: 02:32 - Subjective Subjective: Medicine Progress Note Patient seen and examined. No acute change in clinical condition. No acute events overnight. ROS not able to be obtained. Objective - Vital Signs/Intake and Output Vital Signs (last 24 hours): Temp Pulse Resp BP Pulse Ox 97.6 F 94 H 19 124/79 99 01/11/16 22:00 01/11/16 22:00 01/11/16 22:00 01/11/16 22:00 01/11/16 22:00 Intake and Output: 01/11/16 01/12/16 18:59 06:59 Output Total 1125 500 Balance -1125 -500 - Medications Medications: Current Medications Aspirin (Aspirin) 325 mg PO DAILY [facility] Last Admin: 11/23/15 09:42 Dose: 325 mg Clopidogrel Bisulfate (Plavix) 75 mg PO DAILY [facility] Last Admin: 01/11/16 10:19 Dose: 75 mg Enoxaparin Sodium (Lovenox) 40 mg SC DAILY [facility] Last Admin: 01/11/16 10:18 Dose: 40 mg Famotidine (Pepcid) 20 mg PO BID [facility] Last Admin: 01/11/16 17:43 Dose: 20 mg Piperacillin Sod/Tazobactam (Sod 3.375 gm/ Sodium Chloride) 100 mls @ 200 mls/ hr IVPB Q6H [facility] Stop: 01/13/16 22:31 Last Admin: 01/11/16 21:30 Dose: 200 mls/hr Lisinopril (Zestril) 5 mg PO DAILY [facility] Last Admin: 01/11/16 10:18 Dose: 5 mg Oxybutynin Chloride (Ditropan Tab) 5 mg PO TID [facility] Last Admin: 01/11/16 17:43 Dose: 5 mg Phenytoin (Dilantin) 100 mg PEG TID [facility] Last Admin: 01/11/16 17:44 Dose: 100 mg Polyethylene Glycol (Miralax) 17 gm PEG BID [facility] Last Admin: 08/21/15 11:26 Dose: Not Given - Labs Labs: 01/08/16 07:22 01/08/16 07:22 PT 10.6 SECONDS (9.7-12.2) 11/24/15 14:10 INR 1.0 11/24/15 14:10 APTT 25 SECONDS (21-34) 11/24/15 14:10 - Additional Findings Additional findings: - Constitutional Appears: No Acute Distress - Head Exam Head Exam: ATRAUMATIC, NORMOCEPHALIC - Eye Exam Eye Exam: Normal appearance. absent: Conjunctival injection, Scleral icterus - ENT Exam ENT Exam: Mucous Membranes Moist - Neck Exam Additional comments: trach collar - Respiratory Exam Respiratory Exam: NORMAL BREATHING PATTERN Additional comments: coarse breath sounds - Cardiovascular Exam Cardiovascular Exam: REGULAR RHYTHM, +S1, +S2. absent: Gallop, Rubs, Murmur - GI/Abdominal Exam GI & Abdominal Exam: Soft, Normal Bowel Sounds Additional comments: PEG tube intact and in place - Exam Additional comments: baker catheter in place - Extremities Exam Extremities Exam: absent: Pedal Edema - Neurological Exam Neurological Exam: Altered - Skin Skin Exam: Dry, Warm Assessment and Plan - Assessment and Plan (Free Text) Assessment: (1) Urinary tract infection Assessment & Plan: 01/12: Continue IV Zosyn at this time with plan to dc on 01/13 per ID 01/11: continue Zosyn 3.375gm IVPB Q6H (day 5) will discontinue on 01/13/1601/09: Will speak with Dr. Armstrong regarding length of IV antibiotic therapy. In the meantime, continue Zosyn 3.375gm IVPB Q6H. Continue monitoring CBC and for fevers. 01/07: Continue Zosyn 3.375gm IVPB Q6H. Monitor for fevers, Monitor CBC 01/06: urine culture positive for proteus mirabilis (sensitive to tobramycin, zosyn, amikacin, gentamicin). baker catheter to be re-inserted. Switch to Zosyn 3.375gm IVPB Q6H per Dr. Armstrong. 01/05: f/u urine culture sensitivities. Continue Primaxin 500mg IVPB Q8H as per Dr. Armstrong. 01/04: Urine culture + for gram negative rods. spoke with Dr. Armstrong. switched rocephin to primaxin 500mg IVPB Q8H [place] catheter ordered to be used with skin prep to keep it on 01/03: urinalysis had 4+ protein, positive nitrates, 3+ leukocyte esterase. Rocephin 1gm IVPB daily started. Continue [place] catheter. Ditropan 5mg PEG TID for leakage around catheter Urology consult - Dr. Oropeza - help appreciated ID on board - Dr. Armstrong - help appreciated Status: Acute (2) Anoxic encephalopathy Assessment & Plan: 01/12: No acute change in mental status. PEG tube operational, tube feedings running at 50cc/hr at night and bolus feeds during the day 12/28: mental status unchanged; PEG tube placed at bedside by Dr. Chan. Abdominal X-ray showed PEG tube in position with contrast entering appropriately. PEG tube approved for use. GCS 8 [id number] patient with trach in place. Pending placement training family in how to take care of patient Status: Acute (3) Respiratory failure Assessment & Plan: 01/12: no clinical change. trach collar 12/27: tolerating trach collar 12/26: per RN, thick secretions this morning. Saturating well on trach collar. Trach collar in place. Sputum culture 12/06 + pseudomonas: probably colonization. afebrile. normal white count. CXR without infiltrates. No antibiotics for now per Dr. Armstrong tracheostomy with tube change by Dr. Chan on 11/27/15 CXR 12/08--> Tracheostomy tube appears deviated to the left which may be related to patient positioning. Clinical correlation as this does not project over the midline trachea. Bibasilar atelectasis. Mild stable nodularity at the right lung base. (see full report) Cipro started on 11/30 was stopped on 12/08. clean and dry site saturating well on 7L O2 via trach collar No blood tinged secretions noted Bronchial washing grew Pseudomonas ID consult - Dr. Armstrong - herbie appreciated Working on getting portable suctioning for family to practice Status: Acute (4) CAD (coronary artery disease) Assessment & Plan: Cardiac stents on 06/13/15. Continue Lisinopril 5mg PO daily Continue Plavix 75mg PO daily Continue ASA 325mg PO daily-currently held due to recent trach bleeding Status: Acute (5) Seizures Assessment & Plan: Continue dilantin 100mg PEG TID Status: Acute (6) Bed sore Assessment & Plan: continue wound care, sensicare, and medihoney sacral ulcer. Stage II 0.5cm x 1.5cm Continue wound care, sensicare and medihoney. Continue repositioning of patient q2H. dolphin mattress. Heel air boots. Status: Acute (7) Prophylactic measure Assessment & Plan: Lovenox 40 SC daily Pepcid 20 mg PO BID [facility] Status: Acute <Donnell Ying - Last Filed: 01/12/16 15:52> Objective - Vital Signs/Intake and Output Vital Signs (last 24 hours): Temp Pulse Resp BP Pulse Ox 98.5 F 93 H 20 158/95 H 100 01/12/16 13:49 01/12/16 13:49 01/12/16 13:49 01/12/16 13:49 01/12/16 13:49 Intake and Output: 01/12/16 01/12/16 06:59 18:59 Output Total 650 700 Balance -650 -700 - Medications Medications: Current Medications Aspirin (Aspirin) 325 mg PO DAILY [facility] Last Admin: 11/23/15 09:42 Dose: 325 mg Clopidogrel Bisulfate (Plavix) 75 mg PO DAILY [facility] Last Admin: 01/12/16 10:57 Dose: 75 mg Enoxaparin Sodium (Lovenox) 40 mg SC DAILY [facility] Last Admin: 01/12/16 10:56 Dose: 40 mg Famotidine (Pepcid) 20 mg PO BID [facility] Last Admin: 01/12/16 10:57 Dose: 20 mg Piperacillin Sod/Tazobactam (Sod 3.375 gm/ Sodium Chloride) 100 mls @ 200 mls/ hr IVPB Q6H [facility] Stop: 01/13/16 22:31 Last Admin: 01/12/16 10:00 Dose: 200 mls/hr Lisinopril (Zestril) 5 mg PO DAILY [facility] Last Admin: 01/12/16 10:57 Dose: 5 mg Oxybutynin Chloride (Ditropan Tab) 5 mg PO TID [facility] Last Admin: 01/12/16 15:11 Dose: 5 mg Phenytoin (Dilantin) 100 mg PEG TID [facility] Last Admin: 01/12/16 14:20 Dose: 100 mg Polyethylene Glycol (Miralax) 17 gm PEG BID [facility] Last Admin: 08/21/15 11:26 Dose: Not Given - Labs Labs: 01/12/16 07:01/12/16 07:01 PT 10.6 SECONDS (9.7-12.2) 11/24/15 14:10 INR 1.0 11/24/15 14:10 APTT 25 SECONDS (21-34) 11/24/15 14:10 Attending/Attestation - Attestation I have personally seen and examined this patient.: Yes I have fully participated in the care of the patient.: Yes I have reviewed all pertinent clinical information, including history, physical exam and plan: Yes Notes (Text): 01/12/16 15:52 Patient was seen and examined at bedside. Patient's clinical condition. Continue antibiotics for 1 more day. No family present today at bedside.
[2016-01-12] MEDS: Piperacillin/Tazobact 3.375 GM in Sodium Chloride 100 ML IVPB SCH ×4 (03:40→22:20)
[2016-01-12 07:32] LABS: BASO # 0.1 K/uL (0.0-0.2); BASO % 0.7 % (0.0-2.0); EOS # 1.7 K/uL (0.0-0.7); EOS % 19.1 % (0.0-4.0); HEMOGLOBIN 12.7 g/dL (12.0-18.0); LYMPH # 1.6 K/uL (1.0-4.3); LYMPH % 18.5 % (20.0-40.0); MEAN CELL VOLUME 95.1 fL (80.0-94.0); MEAN CORPUSCULAR HEMOGLOBIN 31.6 pg (27.0-31.0); MEAN CORPUSCULAR HGB CONC 33.2 g/dL (33.0-37.0); MEAN PLATELET VOLUME 8.6 fL (7.2-11.7); MONO # 0.7 K/uL (0.0-0.8); NEUT # 4.8 K/uL (1.8-7.0); NEUT % 53.7 % (50.0-75.0); RBC 4.03 Mil/uL (4.40-5.90); RED CELL DISTRIBUTION WIDTH 14.5 % (11.5-14.5); WHITE BLOOD COUNT 8.9 K/uL (4.8-10.8)
[2016-01-12 08:31] LABS: ALBUMIN 3.8 g/dL (3.5-5.0)
[2016-01-12 08:33] LABS: GFR NON-AFRICAN AMERICAN > 60
[2016-01-12 08:34] LABS: ALT/SGPT 63 U/L (21-72); AST/SGOT 34 U/L (17-59); BLOOD UREA NITROGEN 14 mg/dL (9-20)
[2016-01-12 08:35] LABS: CALCIUM 9.2 mg/dL (8.4-10.2)
[2016-01-12] MEDS: Phenytoin 100 mg/4 ml Oral Susp UD PEG SCH ×4 (10:15→17:48)
[2016-01-12] MEDS: Enoxaparin 40 mg Syringe SC SCH (10:56)
--- NOTE | 2016-01-13 00:12 | CP.PCM.PN ---
<Nely Pate - Last Filed: 01/13/16 00:08> Subjective - Date & Time of Evaluation Date of Evaluation: 01/13/16 Time of Evaluation: 00:08 - Subjective Subjective: Medicine Progress Note Patient seen and examined. No acute change in clinical condition. No acute events overnight. Patient does not appear to be in acute distress. ROS not able to be obtained. Objective - Vital Signs/Intake and Output Vital Signs (last 24 hours): Temp Pulse Resp BP Pulse Ox 98.5 F 104 H 20 101/67 96 01/12/16 19:00 01/12/16 19:00 01/12/16 19:00 01/12/16 19:00 01/12/16 19:00 Intake and Output: 01/12/16 01/13/16 18:59 06:59 Output Total 700 Balance -700 - Medications Medications: Current Medications Aspirin (Aspirin) 325 mg PO DAILY [facility] Last Admin: 11/23/15 09:42 Dose: 325 mg Clopidogrel Bisulfate (Plavix) 75 mg PO DAILY [facility] Last Admin: 01/12/16 10:57 Dose: 75 mg Enoxaparin Sodium (Lovenox) 40 mg SC DAILY [facility] Last Admin: 01/12/16 10:56 Dose: 40 mg Famotidine (Pepcid) 20 mg PO BID [facility] Last Admin: 01/12/16 17:48 Dose: 20 mg Piperacillin Sod/Tazobactam (Sod 3.375 gm/ Sodium Chloride) 100 mls @ 200 mls/ hr IVPB Q6H [facility] Stop: 01/13/16 22:31 Last Admin: 01/12/16 22:20 Dose: 200 mls/hr Lisinopril (Zestril) 5 mg PO DAILY [facility] Last Admin: 01/12/16 10:57 Dose: 5 mg Oxybutynin Chloride (Ditropan Tab) 5 mg PO TID [facility] Last Admin: 01/12/16 17:49 Dose: 5 mg Phenytoin (Dilantin) 100 mg PEG TID [facility] Last Admin: 01/12/16 17:48 Dose: 100 mg Polyethylene Glycol (Miralax) 17 gm PEG BID [facility] Last Admin: 08/21/15 11:26 Dose: Not Given - Labs Labs: 01/12/16 07:01 01/12/16 07:01 PT 10.6 SECONDS (9.7-12.2) 11/24/15 14:10 INR 1.0 11/24/15 14:10 APTT 25 SECONDS (21-34) 11/24/15 14:10 - Additional Findings Additional findings: - Constitutional Appears: No Acute Distress - Head Exam Head Exam: ATRAUMATIC, NORMOCEPHALIC - Eye Exam Eye Exam: Normal appearance. absent: Conjunctival injection, Scleral icterus - ENT Exam ENT Exam: Mucous Membranes Moist - Neck Exam Additional comments: trach collar - Respiratory Exam Respiratory Exam: NORMAL BREATHING PATTERN Additional comments: coarse breath sounds - Cardiovascular Exam Cardiovascular Exam: REGULAR RHYTHM, +S1, +S2. absent: Gallop, Rubs, Murmur - GI/Abdominal Exam GI & Abdominal Exam: Soft, Normal Bowel Sounds Additional comments: PEG tube intact and in place - Exam Additional comments: baker catheter in place - Extremities Exam Extremities Exam: absent: Pedal Edema - Neurological Exam Neurological Exam: Altered - Skin Skin Exam: Dry, Warm Assessment and Plan - Assessment and Plan (Free Text) Assessment: (1) Urinary tract infection Assessment & Plan: 01/13: Stop IV Zosyn today. 01/12: Continue IV Zosyn at this time with plan to dc on 01/13 per ID 01/11: continue Zosyn 3.375gm IVPB Q6H (day 5) will discontinue on 01/13/1601/09: Will speak with Dr. Armstrong regarding length of IV antibiotic therapy. In the meantime, continue Zosyn 3.375gm IVPB Q6H. Continue monitoring CBC and for fevers. 01/07: Continue Zosyn 3.375gm IVPB Q6H. Monitor for fevers, Monitor CBC 01/06: urine culture positive for proteus mirabilis (sensitive to tobramycin, zosyn, amikacin, gentamicin). baker catheter to be re-inserted. Switch to Zosyn 3.375gm IVPB Q6H per Dr. Armstrong. 01/05: f/u urine culture sensitivities. Continue Primaxin 500mg IVPB Q8H as per Dr. Armstrong. 01/04: Urine culture + for gram negative rods. spoke with Dr. Armstrong. switched rocephin to primaxin 500mg IVPB Q8H [place] catheter ordered to be used with skin prep to keep it on 01/03: urinalysis had 4+ protein, positive nitrates, 3+ leukocyte esterase. Rocephin 1gm IVPB daily started. Continue [place] catheter. Ditropan 5mg PEG TID for leakage around catheter Urology consult - Dr. Oropeza - help appreciated ID on board - Dr. Armstrong - help appreciated Status: Acute (2) Anoxic encephalopathy Assessment & Plan: No acute change in mental status. PEG tube operational, tube feedings running at 50cc/hr at night and bolus feeds during the day 12/28: PEG tube placed at bedside by Dr. Chan. Abdominal X-ray showed PEG tube in position with contrast entering appropriately. PEG tube approved for use. GCS 8 [id number] patient with trach in place. Pending placement training family in how to take care of patient Status: Acute (3) Respiratory failure Assessment & Plan: 01/13: no clinical change. trach collar 12/27: tolerating trach collar 12/26: per RN, thick secretions this morning. Saturating well on trach collar. Trach collar in place. Sputum culture 12/06 + pseudomonas: probably colonization. afebrile. normal white count. CXR without infiltrates. No antibiotics for now per Dr. Armstrong tracheostomy with tube change by Dr. Chan on 11/27/15 CXR 12/08--> Tracheostomy tube appears deviated to the left which may be related to patient positioning. Clinical correlation as this does not project over the midline trachea. Bibasilar atelectasis. Mild stable nodularity at the right lung base. (see full report) Cipro started on 11/30 was stopped on 12/08. clean and dry site saturating well on 7L O2 via trach collar No blood tinged secretions noted Bronchial washing grew Pseudomonas ID consult - Dr. Armstrong - help appreciated Working on getting portable suctioning for family to practice Status: Acute (4) CAD (coronary artery disease) Assessment & Plan: Cardiac stents on 06/13/15. Continue Lisinopril 5mg PO daily Continue Plavix 75mg PO daily Continue ASA 325mg PO daily-currently held due to recent trach bleeding Status: Acute (5) Seizures Assessment & Plan: Continue dilantin 100mg PEG TID Status: Acute (6) Bed sore Assessment & Plan: continue wound care, sensicare, and medihoney sacral ulcer. Stage II 0.5cm x 1.5cm Continue wound care, sensicare and medihoney. Continue repositioning of patient q2H. dolphin mattress. Heel air boots. Status: Acute (7) Prophylactic measure Assessment & Plan: Lovenox 40 SC daily Pepcid 20 mg PO BID [facility] Status: Acute <Donnell Ying - Last Filed: 01/13/16 18:26> Objective - Vital Signs/Intake and Output Vital Signs (last 24 hours): Temp Pulse Resp BP Pulse Ox 98.4 F 87 20 143/90 97 01/13/16 15:08 01/13/16 15:08 01/13/16 15:08 01/13/16 15:08 01/13/16 15:08 Intake and Output: 01/13/16 01/13/16 06:59 18:59 Intake Total 1200 Output Total 350 500 Balance 850 -500 - Medications Medications: Current Medications Aspirin (Aspirin) 325 mg PO DAILY [facility] Last Admin: 11/23/15 09:42 Dose: 325 mg Clopidogrel Bisulfate (Plavix) 75 mg PO DAILY [facility] Last Admin: 01/13/16 10:25 Dose: 75 mg Enoxaparin Sodium (Lovenox) 40 mg SC DAILY [facility] Last Admin: 01/13/16 10:25 Dose: 40 mg Famotidine (Pepcid) 20 mg PO BID [facility] Last Admin: 01/13/16 17:50 Dose: 20 mg Piperacillin Sod/Tazobactam (Sod 3.375 gm/ Sodium Chloride) 100 mls @ 200 mls/ hr IVPB Q6H [facility] Stop: 01/13/16 22:31 Last Admin: 01/13/16 17:52 Dose: 200 mls/hr Lisinopril (Zestril) 5 mg PO DAILY [facility] Last Admin: 01/13/16 10:25 Dose: 5 mg Oxybutynin Chloride (Ditropan Tab) 5 mg PO TID [facility] Last Admin: 01/13/16 17:51 Dose: 5 mg Phenytoin (Dilantin) 100 mg PEG TID [facility] Last Admin: 01/13/16 17:50 Dose: 100 mg Polyethylene Glycol (Miralax) 17 gm PEG BID [facility] Last Admin: 08/21/15 11:26 Dose: Not Given - Labs Labs: 01/12/16 07:01 02/20/16 07:01 PT 10.6 SECONDS (9.7-12.2) 11/24/15 14:10 INR 1.0 11/24/15 14:10 APTT 25 SECONDS (21-34) 11/24/15 14:10 Attending/Attestation - Attestation I have personally seen and examined this patient.: Yes I have fully participated in the care of the patient.: Yes I have reviewed all pertinent clinical information, including history, physical exam and plan: Yes Notes (Text): 01/13/16 18:25 Patient seen and examined at bedside today. No change in clinical condition. Patient completed the IV antibiotics for UTI. No need to repeat the urinalysis or urine culture because of colonization. Continue current management. Continue turn and position every 2 hours Continue local wound care for decubitus ulcer which is healing very well.
[2016-01-13] MEDS: Piperacillin/Tazobact 3.375 GM in Sodium Chloride 100 ML IVPB SCH ×4 (04:20→22:07)
[2016-01-13] MEDS: Phenytoin 100 mg/4 ml Oral Susp UD PEG SCH ×3 (10:24→17:50)
[2016-01-13] MEDS: Enoxaparin 40 mg Syringe SC SCH (10:25)
--- NOTE | 2016-01-14 07:12 | CP.PCM.PN ---
"<Howard Lopez - Last Filed: 01/14/16 11:01> Subjective - Date & Time of Evaluation Date of Evaluation: 01/14/16 Time of Evaluation: 07:12 - Subjective Subjective: PGY1 Medicine Progress Note | Dr. Demetrice Ying's Service Patient seen and examined at bedside. Clinical status has had no acute changes. Patient remains unresponsive to tactile/verbal/painful stimuli. ROS unobtainable. PEG tube running at 50cc/hr. Trach collar at 5L O2. Objective - Vital Signs/Intake and Output Vital Signs (last 24 hours): Temp Pulse Resp BP Pulse Ox 98.4 F 97 H 20 132/90 99 01/14/16 06:00 01/14/16 06:00 01/14/16 06:00 01/14/16 06:00 01/14/16 06:00 Intake and Output: 01/14/16 01/14/16 06:59 18:59 Output Total 600 Balance -600 - Medications Medications: Current Medications Aspirin (Aspirin) 325 mg PO DAILY [facility] Last Admin: 11/23/15 09:42 Dose: 325 mg Clopidogrel Bisulfate (Plavix) 75 mg PO DAILY [facility] Last Admin: 01/13/16 10:25 Dose: 75 mg Enoxaparin Sodium (Lovenox) 40 mg SC DAILY [facility] Last Admin: 01/13/16 10:25 Dose: 40 mg Famotidine (Pepcid) 20 mg PO BID [facility] Last Admin: 01/13/16 17:50 Dose: 20 mg Lisinopril (Zestril) 5 mg PO DAILY [facility] Last Admin: 01/13/16 10:25 Dose: 5 mg Oxybutynin Chloride (Ditropan Tab) 5 mg PO TID [facility] Last Admin: 01/13/16 17:51 Dose: 5 mg Phenytoin (Dilantin) 100 mg PEG TID [facility] Last Admin: 01/13/16 17:50 Dose: 100 mg Polyethylene Glycol (Miralax) 17 gm PEG BID [facility] Last Admin: 08/21/15 11:26 Dose: Not Given - Labs Labs: 01/12/16 07:01 01/12/16 07:01 PT 10.6 SECONDS (9.7-12.2) 11/24/15 14:10 INR 1.0 11/24/15 14:10 APTT 25 SECONDS (21-34) 11/24/15 14:10 - Constitutional Appears: No Acute Distress, Chronically Ill - Head Exam Head Exam: ATRAUMATIC, NORMOCEPHALIC - Eye Exam Eye Exam: Normal appearance. absent: Conjunctival injection, Scleral icterus - ENT Exam ENT Exam: Mucous Membranes Moist - Neck Exam Additional comments: trach collar at 5L O2 no blood appreciated. - Respiratory Exam Respiratory Exam: NORMAL BREATHING PATTERN Additional comments: coarse breath sounds - Cardiovascular Exam Cardiovascular Exam: REGULAR RHYTHM, +S1, +S2. absent: Gallop, Rubs, Murmur - GI/Abdominal Exam GI & Abdominal Exam: Soft, Normal Bowel Sounds Additional comments: PEG tube intact running at 50cc/hr - Exam Additional comments: baker catheter present - Neurological Exam Neurological Exam: Altered - Skin Skin Exam: Dry, Warm Assessment and Plan - Assessment and Plan (Free Text) Assessment: (1) Urinary tract infection Assessment & Plan: 01/14: Off IV Zosyn, continue baker catheter. f/u CBC and monitor VS 01/13: Stop IV Zosyn today. 01/12: Continue IV Zosyn at this time with plan to dc on 01/13 per ID 01/11: continue Zosyn 3.375gm IVPB Q6H (day 5) will discontinue on 01/13/1601/09: Will speak with Dr. Armstrong regarding length of IV antibiotic therapy. In the meantime, continue Zosyn 3.375gm IVPB Q6H. Continue monitoring CBC and for fevers. 01/07: Continue Zosyn 3.375gm IVPB Q6H. Monitor for fevers, Monitor CBC 01/06: urine culture positive for proteus mirabilis (sensitive to tobramycin, zosyn, amikacin, gentamicin). baker catheter to be re-inserted. Switch to Zosyn 3.375gm IVPB Q6H per Dr. Armstrong. 01/05: f/u urine culture sensitivities. Continue Primaxin 500mg IVPB Q8H as per Dr. Armstrong. 01/04: Urine culture + for gram negative rods. spoke with Dr. Armstrong. switched rocephin to primaxin 500mg IVPB Q8H [place] catheter ordered to be used with skin prep to keep it on 01/03: urinalysis had 4+ protein, positive nitrates, 3+ leukocyte esterase. Rocephin 1gm IVPB daily started. Continue [place] catheter. Ditropan 5mg PEG TID for leakage around catheter Urology consult - Dr. Oropeza - help appreciated ID on board - Dr. Armstrong - help appreciated Status: Acute (2) Anoxic encephalopathy Assessment & Plan: No acute change in mental status. PEG tube operational, tube feedings running at 50cc/hr at night and bolus feeds during the day 12/28: PEG tube placed at bedside by Dr. Chan. Abdominal X-ray showed PEG tube in position with contrast entering appropriately. PEG tube approved for use. GCS 8 [id number] patient with trach in place. Pending placement training family in how to take care of patient Status: Acute (3) Respiratory failure Assessment & Plan: 01/14: no clinical change. trach collar at 5L O2 12/27: tolerating trach collar 12/26: per RN, thick secretions this morning. Saturating well on trach collar. Trach collar in place. Sputum culture 12/06 + pseudomonas: probably colonization. afebrile. normal white count. CXR without infiltrates. No antibiotics for now per Dr. Armstrong tracheostomy with tube change by Dr. Chan on 11/27/15 CXR 12/08--> Tracheostomy tube appears deviated to the left which may be related to patient positioning. Clinical correlation as this does not project over the midline trachea. Bibasilar atelectasis. Mild stable nodularity at the right lung base. (see full report) Cipro started on 11/30 was stopped on 12/08. clean and dry site saturating well on 7L O2 via trach collar No blood tinged secretions noted Bronchial washing grew Pseudomonas ID consult - Dr. Armstrong - help appreciated Working on getting portable suctioning for family to practice Status: Acute (4) CAD (coronary artery disease) Assessment & Plan: Cardiac stents on 06/13/15. Continue Lisinopril 5mg PO daily Continue Plavix 75mg PO daily Continue ASA 325mg PO daily-currently held due to recent trach bleeding Status: Acute (5) Seizures Assessment & Plan: Continue dilantin 100mg PEG TID Status: Acute (6) Bed sore Assessment & Plan: continue wound care, sensicare, and medihoney sacral ulcer. Stage II 0.5cm x 1.5cm Continue wound care, sensicare and medihoney. Continue repositioning of patient q2H. dolphin mattress. Heel air boots. Status: Acute (7) Prophylactic measure Assessment & Plan: Lovenox 40 SC daily Pepcid 20 mg PO BID SCDs Status: Acute <Rashel Rodrigues - Last Filed: 01/14/16 18:30> Objective - Vital Signs/Intake and Output Vital Signs (last 24 hours): Temp Pulse Resp BP Pulse Ox 99.4 F 106 H 20 120/82 98 01/14/16 14:00 01/14/16 14:00 01/14/16 14:00 01/14/16 14:00 01/14/16 14:00 Intake and Output: 01/14/16 01/14/16 06:59 18:59 Output Total 600 Balance -600 - Medications Medications: Current Medications Aspirin (Aspirin) 325 mg PO DAILY [facility] Last Admin: 11/23/15 09:42 Dose: 325 mg Clopidogrel Bisulfate (Plavix) 75 mg PO DAILY [facility] Last Admin: 01/14/16 10:49 Dose: 75 mg Enoxaparin Sodium (Lovenox) 40 mg SC DAILY [facility] Last Admin: 01/14/16 10:49 Dose: 40 mg Famotidine (Pepcid) 20 mg PO BID [facility] Last Admin: 01/14/16 18:03 Dose: 20 mg Lisinopril (Zestril) 5 mg PO DAILY [facility] Last Admin: 01/14/16 10:49 Dose: 5 mg Oxybutynin Chloride (Ditropan Tab) 5 mg PO TID [facility] Last Admin: 01/14/16 18:03 Dose: 5 mg Phenytoin (Dilantin) 100 mg PEG TID [facility] Last Admin: 01/14/16 18:03 Dose: 100 mg Polyethylene Glycol (Miralax) 17 gm PEG BID [facility] Last Admin: 08/21/15 11:26 Dose: Not Given - Labs Labs: 01/12/16 07:01 01/12/16 07:01 PT 10.6 SECONDS (9.7-12.2) 11/24/15 14:10 INR 1.0 11/24/15 14:10 APTT 25 SECONDS (21-34) 11/24/15 14:10 Attending/Attestation - Attestation I have personally seen and examined this patient.: Yes I have fully participated in the care of the patient.: Yes I have reviewed all pertinent clinical information, including history, physical exam and plan: Yes Notes (Text): 01/14/16 18:29 Patient was seen and examined during the round with the resident. cont supportive manage,ment cont trach care, wound care cont Peg tube feeding DW Staff, labs twice a week"
[2016-01-14] MEDS: Enoxaparin 40 mg Syringe SC SCH (10:49)
[2016-01-14] MEDS: Phenytoin 100 mg/4 ml Oral Susp UD PEG SCH ×3 (10:49→18:03)
--- NOTE | 2016-01-15 07:48 | CP.PCM.PN ---
"<Howard Lopez - Last Filed: 01/15/16 14:40> Subjective - Date & Time of Evaluation Date of Evaluation: 01/15/16 Time of Evaluation: 07:48 - Subjective Subjective: PGY1 Medicine Progress Note | Dr. Rodrigues's Service Patient seen and examined at bedside. No acute changes in clinical status. Patient remains unresponsive to tactile/verbal/painful stimuli. ROS unobtainable. PEG tube running at 50cc/hr. Trach collar at 6L O2. Objective - Vital Signs/Intake and Output Vital Signs (last 24 hours): Temp Pulse Resp BP Pulse Ox 98.0 F 83 20 136/90 98 01/15/16 06:00 01/15/16 06:00 01/15/16 06:00 01/15/16 06:00 01/15/16 06:00 Intake and Output: 01/15/16 01/15/16 06:59 18:59 Output Total 1150 Balance -1150 - Medications Medications: Current Medications Aspirin (Aspirin) 325 mg PO DAILY [facility] B[facility]S AT [facility] Last Admin: 11/23/15 09:42 Dose: 325 mg Clopidogrel Bisulfate (Plavix) 75 mg PO DAILY [facility] 234 [facility]S [facility] Last Admin: 01/14/16 10:49 Dose: 75 mg Enoxaparin Sodium (Lovenox) 40 mg SC DAILY [facility] 234 [facility]S [facility] Last Admin: 01/14/16 10:49 Dose: 40 mg Famotidine (Pepcid) 20 mg PO BID [facility]CLUDE 234 BEDS AT [facility] Last Admin: 01/14/16 18:03 Dose: 20 mg Lisinopril (Zestril) 5 mg PO DAILY [facility] 234 BEDS [facility] Last Admin: 01/14/16 10:49 Dose: 5 mg Oxybutynin Chloride (Ditropan Tab) 5 mg PO TID COUNT[facility]CLUDE 234 BEDS AT [facility] Last Admin: 01/14/16 18:03 Dose: 5 mg Phenytoin (Dilantin) 100 mg PEG TID COUNT[facility] 234 B[facility]S [facility] Last Admin: 01/14/16 18:03 Dose: 100 mg Polyethylene Glycol (Miralax) 17 gm PEG BID [facility] 234 B[facility]S [facility] Last Admin: 08/21/15 11:26 Dose: Not Given - Labs Labs: 01/12/16 07:01 01/12/16 07:01 PT 10.6 SECONDS (9.7-12.2) 11/24/15 14:10 INR 1.0 11/24/15 14:10 APTT 25 SECONDS (21-34) 11/24/15 14:10 - Constitutional Appears: No Acute Distress - Head Exam Head Exam: ATRAUMATIC, NORMOCEPHALIC - Eye Exam Eye Exam: absent: Conjunctival injection, Scleral icterus - ENT Exam ENT Exam: Mucous Membranes Moist - Respiratory Exam Additional comments: coarse breath sounds - Cardiovascular Exam Cardiovascular Exam: REGULAR RHYTHM, +S1, +S2. absent: Gallop, Rubs, Murmur - GI/Abdominal Exam GI & Abdominal Exam: Soft, Normal Bowel Sounds - Extremities Exam Extremities Exam: absent: Pedal Edema - Neurological Exam Neurological Exam: Altered - Skin Skin Exam: Dry, Warm Additional comments: sacral decubitus ulcer, stage I, healing well Assessment and Plan - Assessment and Plan (Free Text) Assessment: (1) Anoxic encephalopathy Assessment & Plan: No acute change in mental status. PEG tube operational, tube feedings running at 50cc/hr at night and bolus feeds during the day 12/28: PEG tube placed at bedside by Dr. Chan. Abdominal X-ray showed PEG tube in position with contrast entering appropriately. PEG tube approved for use. GCS 8 [id number] patient with trach in place. Pending placement training family in how to take care of patient Status: Acute (2) Respiratory failure Assessment & Plan: 01/15: no clinical change. trach collar at 6L O2 12/27: tolerating trach collar 12/26: per RN, thick secretions this morning. Saturating well on trach collar. Trach collar in place. Sputum culture 12/06 + pseudomonas: probably colonization. afebrile. normal white count. CXR without infiltrates. No antibiotics for now per Dr. Armstrong tracheostomy with tube change by Dr. Chan on 11/27/15 CXR 12/08--> Tracheostomy tube appears deviated to the left which may be related to patient positioning. Clinical correlation as this does not project over the midline trachea. Bibasilar atelectasis. Mild stable nodularity at the right lung base. (see full report) Cipro started on 11/30 was stopped on 12/08. clean and dry site saturating well on 7L O2 via trach collar No blood tinged secretions noted Bronchial washing grew Pseudomonas ID consult - Dr. Armstrong - help appreciated Working on getting portable suctioning for family to practice Status: Acute (3) Urinary tract infection Assessment & Plan: 01/15: continue monitoring for fever. CBC to be done twice weekly, unless increased frequency is clinically indicated 01/14: Off IV Zosyn, continue baker catheter. f/u CBC and monitor VS 01/13: Stop IV Zosyn today. 01/12: Continue IV Zosyn at this time with plan to dc on 01/13 per ID 01/11: continue Zosyn 3.375gm IVPB Q6H (day 5) will discontinue on 01/13/1601/09: Will speak with Dr. Armstrong regarding length of IV antibiotic therapy. In the meantime, continue Zosyn 3.375gm IVPB Q6H. Continue monitoring CBC and for fevers. 01/07: Continue Zosyn 3.375gm IVPB Q6H. Monitor for fevers, Monitor CBC 01/06: urine culture positive for proteus mirabilis (sensitive to tobramycin, zosyn, amikacin, gentamicin). baker catheter to be re-inserted. Switch to Zosyn 3.375gm IVPB Q6H per Dr. Armstrong. 01/05: f/u urine culture sensitivities. Continue Primaxin 500mg IVPB Q8H as per Dr. Armstrong. 01/04: Urine culture + for gram negative rods. spoke with Dr. Armstrong. switched rocephin to primaxin 500mg IVPB Q8H [place] catheter ordered to be used with skin prep to keep it on 01/03: urinalysis had 4+ protein, positive nitrates, 3+ leukocyte esterase. Rocephin 1gm IVPB daily started. Continue [place] catheter. Ditropan 5mg PEG TID for leakage around catheter Urology consult - Dr. Oropeza - help appreciated ID on board - Dr. Armstrong - help appreciated Status: Acute (4) CAD (coronary artery disease) Assessment & Plan: Cardiac stents on 06/13/15. Continue Lisinopril 5mg PO daily Continue Plavix 75mg PO daily Continue ASA 325mg PO daily-currently held due to recent trach bleeding Status: Acute (5) Seizures Assessment & Plan: Continue dilantin 100mg PEG TID Status: Acute (6) Bed sore Assessment & Plan: 01/15: Sacral ulcer improving considerably, Stage I (one) ulcer observed, non- open continue wound care, sensicare, and medihoney sacral ulcer. Stage II 0.5cm x 1.5cm Continue wound care, sensicare and medihoney. Continue repositioning of patient q2H. dolphin mattress. Heel air boots. Status: Acute (7) Prophylactic measure Assessment & Plan: Lovenox 40 SC daily Pepcid 20 mg PO BID SCDs Status: Acute <Rashel Rodrigues - Last Filed: 01/15/16 16:20> Objective - Vital Signs/Intake and Output Vital Signs (last 24 hours): Temp Pulse Resp BP Pulse Ox 98.7 F 100 H 20 113/61 100 01/15/16 13:56 01/15/16 13:56 01/15/16 13:56 01/15/16 13:56 01/15/16 13:56 Intake and Output: 01/15/16 01/15/16 06:59 18:59 Output Total 1150 Balance -1150 - Medications Medications: Current Medications Aspirin (Aspirin) 325 mg PO DAILY [facility]S [facility]CLUDE 234 BEDS AT [facility] Last Admin: 11/23/15 09:42 Dose: 325 mg Clopidogrel Bisulfate (Plavix) 75 mg PO DAILY COUNTS [facility]CLUDE 234 BEDS AT [facility] Last Admin: 01/15/16 10:18 Dose: 75 mg Enoxaparin Sodium (Lovenox) 40 mg SC DAILY COUNTS [facility]CLUDE 234 BEDS AT [facility] Last Admin: 01/15/16 10:18 Dose: 40 mg Famotidine (Pepcid) 20 mg PO BID COUNTS [facility]CLUDE 234 BEDS AT [facility] Last Admin: 01/15/16 10:18 Dose: 20 mg Lisinopril (Zestril) 5 mg PO DAILY COUNTS [facility]CLUDE 234 BEDS AT [facility] Last Admin: 01/15/16 10:18 Dose: 5 mg Oxybutynin Chloride (Ditropan Tab) 5 mg PO TID COUNTS INCLUDE 234 BEDS AT [facility] Last Admin: 01/15/16 14:47 Dose: 5 mg Phenytoin (Dilantin) 100 mg PEG TID COUNTS INCLUDE 234 BEDS AT [facility] Last Admin: 01/15/16 14:47 Dose: 100 mg Polyethylene Glycol (Miralax) 17 gm PEG BID COUNTS [facility]CLUDE 234 BEDS AT [facility] Last Admin: 08/21/15 11:26 Dose: Not Given - Labs Labs: 01/15/16 07:22 01/15/16 07:22 PT 10.6 SECONDS (9.7-12.2) 11/24/15 14:10 INR 1.0 11/24/15 14:10 APTT 25 SECONDS (21-34) 01/02/16 14:10 Attending/Attestation - Attestation I have personally seen and examined this patient.: Yes I have fully participated in the care of the patient.: Yes I have reviewed all pertinent clinical information, including history, physical exam and plan: Yes Notes (Text): 01/15/16 16:19 Patient was seen and examined during the round with the resident. pt remains nonverbal pt has no fever Pt has very small sacral decubitus ulcer. ( stage 1) cont supportive management."
[2016-01-15 08:02] LABS: BASO # 0.1 K/uL (0.0-0.2); BASO % 0.6 % (0.0-2.0); EOS # 1.3 K/uL (0.0-0.7); EOS % 14.4 % (0.0-4.0); HEMOGLOBIN 12.8 g/dL (12.0-18.0); LYMPH # 1.6 K/uL (1.0-4.3); LYMPH % 17.9 % (20.0-40.0); MEAN CORPUSCULAR HEMOGLOBIN 31.6 pg (27.0-31.0); MEAN CORPUSCULAR HGB CONC 33.2 g/dL (33.0-37.0); MONO # 0.7 K/uL (0.0-0.8); NEUT # 5.4 K/uL (1.8-7.0); NEUT % 59.1 % (50.0-75.0); NRBC % 0.1 % (0.0-2.0); RBC 4.05 Mil/uL (4.40-5.90); RED CELL DISTRIBUTION WIDTH 14.4 % (11.5-14.5); WHITE BLOOD COUNT 9.1 K/uL (4.8-10.8)
[2016-01-15 08:38] LABS: ALBUMIN 3.7 g/dL (3.5-5.0)
[2016-01-15 08:40] LABS: ALB/GLOB RATIO 0.9 (1.0-2.1); AST/SGOT 34 U/L (17-59); GFR NON-AFRICAN AMERICAN > 60
[2016-01-15 08:41] LABS: ALT/SGPT 67 U/L (21-72); BLOOD UREA NITROGEN 22 mg/dL (9-20); CALCIUM 9.4 mg/dL (8.4-10.2)
[2016-01-15] MEDS: Enoxaparin 40 mg Syringe SC SCH (10:18)
[2016-01-15] MEDS: Phenytoin 100 mg/4 ml Oral Susp UD PEG SCH ×3 (10:18→17:41)
--- NOTE | 2016-01-16 07:46 | CP.PCM.PN ---
"<Howard Lopez - Last Filed: 01/16/16 13:55> Subjective - Date & Time of Evaluation Date of Evaluation: 01/16/16 Time of Evaluation: 07:46 - Subjective Subjective: PGY1 Medicine Progress Note | Dr. Rodrigues's Service Patient seen and examined at bedside. Clinical status remains unchanged as patient continues to be unresponsive to tactile/verbal/painful stimuli. ROS unobtainable. PEG tube running at 50cc/hr. Trach collar at 5L O2. Objective - Vital Signs/Intake and Output Vital Signs (last 24 hours): Temp Pulse Resp BP Pulse Ox 98.9 F 89 19 126/79 99 01/16/16 06:42 01/16/16 06:42 01/16/16 06:42 01/16/16 06:42 01/16/16 06:42 Intake and Output: 01/16/16 01/16/16 06:59 18:59 Intake Total 1000 Output Total 1100 Balance -100 - Medications Medications: Current Medications Aspirin (Aspirin) 325 mg PO DAILY ON LICENSE OF [facility] Last Admin: 11/23/15 09:42 Dose: 325 mg Clopidogrel Bisulfate (Plavix) 75 mg PO DAILY ON [facility] OF [facility] Last Admin: 01/15/16 10:18 Dose: 75 mg Enoxaparin Sodium (Lovenox) 40 mg SC DAILY ON [facility] OF [facility] Last Admin: 01/15/16 10:18 Dose: 40 mg Famotidine (Pepcid) 20 mg PO BID ON [facility] OF [facility] Last Admin: 01/15/16 17:41 Dose: 20 mg Lisinopril (Zestril) 5 mg PO DAILY ON [facility] Last Admin: 01/15/16 10:18 Dose: 5 mg Oxybutynin Chloride (Ditropan Tab) 5 mg PO TID ON LICENSE OF [facility] Last Admin: 01/15/16 17:41 Dose: 5 mg Phenytoin (Dilantin) 100 mg PEG TID ON LICENSE OF [facility] Last Admin: 01/15/16 17:41 Dose: 100 mg Polyethylene Glycol (Miralax) 17 gm PEG BID ON LICENSE OF [facility] Last Admin: 08/21/15 11:26 Dose: Not Given - Labs Labs: 01/15/16 07:22 01/15/16 07:22 PT 10.6 SECONDS (9.7-12.2) 11/24/15 14:10 INR 1.0 11/24/15 14:10 APTT 25 SECONDS (21-34) 11/24/15 14:10 - Additional Findings Additional findings: - Constitutional Appears: No Acute Distress - Head Exam Head Exam: ATRAUMATIC, NORMOCEPHALIC - Eye Exam Eye Exam: absent: Conjunctival injection, Scleral icterus - ENT Exam ENT Exam: Mucous Membranes Moist - Respiratory Exam Additional comments: coarse breath sounds - Cardiovascular Exam Cardiovascular Exam: REGULAR RHYTHM, +S1, +S2. absent: Gallop, Rubs, Murmur - GI/Abdominal Exam GI & Abdominal Exam: Soft, Normal Bowel Sounds - Extremities Exam Extremities Exam: absent: Pedal Edema - Neurological Exam Neurological Exam: Altered - Skin Skin Exam: Dry, Warm Assessment and Plan - Assessment and Plan (Free Text) Assessment: (1) Anoxic encephalopathy Assessment & Plan: No acute change in mental status. PEG tube operational, tube feedings running at 50cc/hr at night and bolus feeds during the day 12/28: PEG tube placed at bedside by Dr. Chan. Abdominal X-ray showed PEG tube in position with contrast entering appropriately. PEG tube approved for use. GCS 8 [id number] patient with trach in place. Pending placement training family in how to take care of patient Status: Acute (2) Respiratory failure Assessment & Plan: 01/16: no clinical change. trach collar at 5L O2 12/27: tolerating trach collar 12/26: per RN, thick secretions this morning. Saturating well on trach collar. Trach collar in place. Sputum culture 12/06 + pseudomonas: probably colonization. afebrile. normal white count. CXR without infiltrates. No antibiotics for now per Dr. Armstrong tracheostomy with tube change by Dr. Chan on 11/27/15 CXR 12/08--> Tracheostomy tube appears deviated to the left which may be related to patient positioning. Clinical correlation as this does not project over the midline trachea. Bibasilar atelectasis. Mild stable nodularity at the right lung base. (see full report) Cipro started on 11/30 was stopped on 12/08. clean and dry site saturating well on 7L O2 via trach collar No blood tinged secretions noted Bronchial washing grew Pseudomonas ID consult - Dr. Armstrong - help appreciated Working on getting portable suctioning for family to practice Status: Acute (3) Urinary tract infection Assessment & Plan: 01/16: afebrile. CBC to be done twice weekly, unless increased frequency is clinically indicated 01/14: Off IV Zosyn, continue baker catheter. f/u CBC and monitor VS 01/13: Stop IV Zosyn today. 01/12: Continue IV Zosyn at this time with plan to dc on 01/13 per ID 01/11: continue Zosyn 3.375gm IVPB Q6H (day 5) will discontinue on 01/13/1601/09: Will speak with Dr. Armstrong regarding length of IV antibiotic therapy. In the meantime, continue Zosyn 3.375gm IVPB Q6H. Continue monitoring CBC and for fevers. 01/07: Continue Zosyn 3.375gm IVPB Q6H. Monitor for fevers, Monitor CBC 01/06: urine culture positive for proteus mirabilis (sensitive to tobramycin, zosyn, amikacin, gentamicin). baker catheter to be re-inserted. Switch to Zosyn 3.375gm IVPB Q6H per Dr. Armstrong. 01/05: f/u urine culture sensitivities. Continue Primaxin 500mg IVPB Q8H as per Dr. Armstrong. 01/04: Urine culture + for gram negative rods. spoke with Dr. Armstrong. switched rocephin to primaxin 500mg IVPB Q8H [place] catheter ordered to be used with skin prep to keep it on 01/03: urinalysis had 4+ protein, positive nitrates, 3+ leukocyte esterase. Rocephin 1gm IVPB daily started. Continue [place] catheter. Ditropan 5mg PEG TID for leakage around catheter Urology consult - Dr. Oropeza - help appreciated ID on board - Dr. Armstrong - help appreciated Status: Acute (4) CAD (coronary artery disease) Assessment & Plan: Cardiac stents on 06/13/15. Continue Lisinopril 5mg PO daily Continue Plavix 75mg PO daily Continue ASA 325mg PO daily-currently held due to recent trach bleeding Status: Acute (5) Seizures Assessment & Plan: Continue dilantin 100mg PEG TID Status: Acute (6) Bed sore Assessment & Plan: 01/15: Sacral ulcer improving considerably, Stage I (one) ulcer observed, non- open continue wound care, sensicare, and medihoney sacral ulcer. Stage II 0.5cm x 1.5cm Continue wound care, sensicare and medihoney. Continue repositioning of patient q2H. dolphin mattress. Heel air boots. Status: Acute (7) Prophylactic measure Assessment & Plan: Lovenox 40 SC daily Pepcid 20 mg PO BID SCDs Status: Acute <Rashel Rodrigues - Last Filed: 01/16/16 15:30> Objective - Vital Signs/Intake and Output Vital Signs (last 24 hours): Temp Pulse Resp BP Pulse Ox 98.5 F 91 H 20 112/60 100 01/16/16 13:58 01/16/16 13:58 01/16/16 13:58 01/16/16 13:58 01/16/16 13:58 Intake and Output: 01/16/16 01/16/16 06:59 18:59 Intake Total 1000 Output Total 1100 400 Balance -100 -400 - Medications Medications: Current Medications Aspirin (Aspirin) 325 mg PO DAILY ON LICENSE OF [facility] Last Admin: 11/23/15 09:42 Dose: 325 mg Clopidogrel Bisulfate (Plavix) 75 mg PO DAILY ON [facility] Last Admin: 01/16/16 10:22 Dose: 75 mg Enoxaparin Sodium (Lovenox) 40 mg SC DAILY ON [facility] Last Admin: 01/16/16 10:22 Dose: 40 mg Famotidine (Pepcid) 20 mg PO BID ON [facility] Last Admin: 01/16/16 10:22 Dose: 20 mg Lisinopril (Zestril) 5 mg PO DAILY ON [facility] Last Admin: 01/16/16 10:22 Dose: 5 mg Oxybutynin Chloride (Ditropan Tab) 5 mg PO TID ON [facility] Last Admin: 01/16/16 14:11 Dose: 5 mg Phenytoin (Dilantin) 100 mg PEG TID ON [facility] Last Admin: 01/16/16 14:11 Dose: 100 mg Polyethylene Glycol (Miralax) 17 gm PEG BID ON [facility] Last Admin: 08/21/15 11:26 Dose: Not Given - Labs Labs: 01/15/16 07:22 01/15/16 07:22 PT 10.6 SECONDS (9.7-12.2) 11/24/15 14:10 INR 1.0 11/24/15 14:10 APTT 25 SECONDS (21-34) 11/24/15 14:10 Attending/Attestation - Attestation I have personally seen and examined this patient.: Yes I have fully participated in the care of the patient.: Yes I have reviewed all pertinent clinical information, including history, physical exam and plan: Yes Notes (Text): 01/16/16 15:29 Patient was seen and examined during the round with the resident. no new events cont meds cont supportive management"
[2016-01-16] MEDS: Phenytoin 100 mg/4 ml Oral Susp UD PEG SCH ×3 (10:22→17:58)
[2016-01-16] MEDS: Enoxaparin 40 mg Syringe SC SCH (10:22)
[2016-01-17 06:45] LABS: BASO # 0.1 K/uL (0.0-0.2); BASO % 0.6 % (0.0-2.0); EOS # 1.3 K/uL (0.0-0.7); EOS % 13.8 % (0.0-4.0); HEMOGLOBIN 11.7 g/dL (12.0-18.0); LYMPH # 1.7 K/uL (1.0-4.3); LYMPH % 17.7 % (20.0-40.0); MEAN CELL VOLUME 92.7 fL (80.0-94.0); MEAN CORPUSCULAR HEMOGLOBIN 30.6 pg (27.0-31.0); MEAN PLATELET VOLUME 8.5 fL (7.2-11.7); MONO # 0.8 K/uL (0.0-0.8); MONO % 8.9 % (0.0-10.0); NEUT # 5.6 K/uL (1.8-7.0); RBC 3.83 Mil/uL (4.40-5.90); RED CELL DISTRIBUTION WIDTH 13.9 % (11.5-14.5); WHITE BLOOD COUNT 9.5 K/uL (4.8-10.8)
[2016-01-17 06:50] LABS: ALBUMIN 3.4 g/dL (3.5-5.0)
[2016-01-17 06:53] LABS: ALB/GLOB RATIO 0.9 (1.0-2.1); AST/SGOT 32 U/L (17-59); GFR NON-AFRICAN AMERICAN > 60
[2016-01-17 06:54] LABS: ALT/SGPT 52 U/L (21-72); BLOOD UREA NITROGEN 19 mg/dL (9-20); CALCIUM 8.9 mg/dL (8.4-10.2)
--- NOTE | 2016-01-17 07:47 | CP.PCM.PN ---
"<Howard Lopez - Last Filed: 01/17/16 11:23> Subjective - Date & Time of Evaluation Date of Evaluation: 01/17/16 Time of Evaluation: 07:47 - Subjective Subjective: PGY1 Medicine Progress Note | Dr. Rodrigues's Service Patient seen and examined at bedside. Pt. is unresponsive to tactile/verbal/ painful stimuli. ROS unobtainable. PEG tube running at 50cc/hr. Trach collar at 6L O2. Clinical status unchanged. Objective - Vital Signs/Intake and Output Vital Signs (last 24 hours): Temp Pulse Resp BP Pulse Ox 98.5 F 96 H 20 134/78 99 01/17/16 05:58 01/17/16 05:58 01/17/16 05:58 01/17/16 05:58 01/17/16 05:58 Intake and Output: 01/17/16 01/17/16 06:59 18:59 Output Total 400 Balance -400 - Medications Medications: Current Medications Aspirin (Aspirin) 325 mg PO DAILY [facility] Last Admin: 11/23/15 09:42 Dose: 325 mg Clopidogrel Bisulfate (Plavix) 75 mg PO DAILY [facility] Last Admin: 01/16/16 10:22 Dose: 75 mg Enoxaparin Sodium (Lovenox) 40 mg SC DAILY [facility] Last Admin: 01/16/16 10:22 Dose: 40 mg Famotidine (Pepcid) 20 mg PO BID [facility] Last Admin: 01/16/16 17:58 Dose: 20 mg Lisinopril (Zestril) 5 mg PO DAILY [facility] Last Admin: 01/16/16 10:22 Dose: 5 mg Oxybutynin Chloride (Ditropan Tab) 5 mg PO TID [facility] Last Admin: 01/16/16 17:58 Dose: 5 mg Phenytoin (Dilantin) 100 mg PEG TID [facility] Last Admin: 01/16/16 17:58 Dose: 100 mg Polyethylene Glycol (Miralax) 17 gm PEG BID [facility] Last Admin: 08/21/15 11:26 Dose: Not Given - Labs Labs: 01/17/16 06:25 01/17/16 06:25 PT 10.6 SECONDS (9.7-12.2) 11/24/15 14:10 INR 1.0 11/24/15 14:10 APTT 25 SECONDS (21-34) 11/24/15 14:10 - Additional Findings Additional findings: - Constitutional Appears: No Acute Distress - Head Exam Head Exam: ATRAUMATIC, NORMOCEPHALIC - Eye Exam Eye Exam: absent: Conjunctival injection, Scleral icterus - ENT Exam ENT Exam: Mucous Membranes Moist - Respiratory Exam Additional comments: coarse breath sounds - Cardiovascular Exam Cardiovascular Exam: REGULAR RHYTHM, +S1, +S2. absent: Gallop, Rubs, Murmur - GI/Abdominal Exam GI & Abdominal Exam: Soft, Normal Bowel Sounds - Extremities Exam Extremities Exam: absent: Pedal Edema - Neurological Exam Neurological Exam: Altered - Skin Skin Exam: Dry, Warm Assessment and Plan - Assessment and Plan (Free Text) Assessment: (1) Anoxic encephalopathy Assessment & Plan: No acute change in mental status. PEG tube operational, tube feedings running at 50cc/hr at night and bolus feeds during the day 12/28: PEG tube placed at bedside by Dr. Chan. Abdominal X-ray showed PEG tube in position with contrast entering appropriately. PEG tube approved for use. GCS 8 [id number] patient with trach in place. Pending placement training family in how to take care of patient Status: Acute (2) Respiratory failure Assessment & Plan: 01/17: no clinical change. trach collar at 6L O2 12/27: tolerating trach collar 12/26: per RN, thick secretions this morning. Saturating well on trach collar. Trach collar in place. Sputum culture 12/06 + pseudomonas: probably colonization. afebrile. normal white count. CXR without infiltrates. No antibiotics for now per Dr. Armstrong tracheostomy with tube change by Dr. Chan on 11/27/15 CXR 12/08--> Tracheostomy tube appears deviated to the left which may be related to patient positioning. Clinical correlation as this does not project over the midline trachea. Bibasilar atelectasis. Mild stable nodularity at the right lung base. (see full report) Cipro started on 11/30 was stopped on 12/08. clean and dry site saturating well on 7L O2 via trach collar No blood tinged secretions noted Bronchial washing grew Pseudomonas ID consult - Dr. Armstrong - help appreciated Working on getting portable suctioning for family to practice Status: Acute (3) Urinary tract infection Assessment & Plan: 01/17: afebrile overnight. WBC 9.5 today. CBC to be done twice weekly, unless increased frequency is clinically indicated 01/14: Off IV Zosyn, continue baker catheter. f/u CBC and monitor VS 01/13: Stop IV Zosyn today. 01/12: Continue IV Zosyn at this time with plan to dc on 01/13 per ID 01/11: continue Zosyn 3.375gm IVPB Q6H (day 5) will discontinue on 01/13/1601/09: Will speak with Dr. Armstrong regarding length of IV antibiotic therapy. In the meantime, continue Zosyn 3.375gm IVPB Q6H. Continue monitoring CBC and for fevers. 01/07: Continue Zosyn 3.375gm IVPB Q6H. Monitor for fevers, Monitor CBC 01/06: urine culture positive for proteus mirabilis (sensitive to tobramycin, zosyn, amikacin, gentamicin). baker catheter to be re-inserted. Switch to Zosyn 3.375gm IVPB Q6H per Dr. Armstrong. 01/05: f/u urine culture sensitivities. Continue Primaxin 500mg IVPB Q8H as per Dr. Armstrong. 01/04: Urine culture + for gram negative rods. spoke with Dr. Armstrong. switched rocephin to primaxin 500mg IVPB Q8H [place] catheter ordered to be used with skin prep to keep it on 01/03: urinalysis had 4+ protein, positive nitrates, 3+ leukocyte esterase. Rocephin 1gm IVPB daily started. Continue [place] catheter. Ditropan 5mg PEG TID for leakage around catheter Urology consult - Dr. Oropeza - help appreciated ID on board - Dr. Armstrong - help appreciated Status: Acute (4) CAD (coronary artery disease) Assessment & Plan: Cardiac stents on 06/13/15. Continue Lisinopril 5mg PO daily Continue Plavix 75mg PO daily Continue ASA 325mg PO daily-currently held due to recent trach bleeding Status: Acute (5) Seizures Assessment & Plan: Continue dilantin 100mg PEG TID Status: Acute (6) Bed sore Assessment & Plan: 01/15: Sacral ulcer improving considerably, Stage I (one) ulcer observed, non- open continue wound care, sensicare, and medihoney sacral ulcer. Stage II 0.5cm x 1.5cm Continue wound care, sensicare and medihoney. Continue repositioning of patient q2H. dolphin mattress. Heel air boots. Status: Acute (7) Prophylactic measure Assessment & Plan: Lovenox 40 SC daily Pepcid 20 mg PO BID SCDs Status: Acute <Rashel Rodrigues - Last Filed: 01/17/16 15:55> Objective - Vital Signs/Intake and Output Vital Signs (last 24 hours): Temp Pulse Resp BP Pulse Ox 98.0 F 18 L 93 H 128/88 100 01/17/16 14:13 01/17/16 14:13 01/17/16 14:13 01/17/16 14:13 01/17/16 14:13 Intake and Output: 01/17/16 01/17/16 06:59 18:59 Output Total 400 Balance -400 - Medications Medications: Current Medications Aspirin (Aspirin) 325 mg PO DAILY [facility] Last Admin: 11/23/15 09:42 Dose: 325 mg Clopidogrel Bisulfate (Plavix) 75 mg PO DAILY [facility] Last Admin: 01/17/16 11:13 Dose: 75 mg Enoxaparin Sodium (Lovenox) 40 mg SC DAILY [facility] Last Admin: 01/17/16 11:13 Dose: 40 mg Famotidine (Pepcid) 20 mg PO BID [facility] Last Admin: 01/17/16 11:13 Dose: 20 mg Lisinopril (Zestril) 5 mg PO DAILY [facility] Last Admin: 01/17/16 11:13 Dose: 5 mg Oxybutynin Chloride (Ditropan Tab) 5 mg PO TID [facility] Last Admin: 01/17/16 14:49 Dose: 5 mg Phenytoin (Dilantin) 100 mg PEG TID [facility] Last Admin: 01/17/16 14:49 Dose: 100 mg Polyethylene Glycol (Miralax) 17 gm PEG BID [facility] Last Admin: 08/21/15 11:26 Dose: Not Given - Labs Labs: 01/17/16 06:25 01/17/16 06:25 PT 10.6 SECONDS (9.7-12.2) 11/24/15 14:10 INR 1.0 11/24/15 14:10 APTT 25 SECONDS (21-34) 11/24/15 14:10 Attending/Attestation - Attestation I have personally seen and examined this patient.: Yes I have fully participated in the care of the patient.: Yes I have reviewed all pertinent clinical information, including history, physical exam and plan: Yes Notes (Text): 01/17/16 15:53 Patient was seen and examined during the round with the resident. pt is tolerating peg tube feeding pt has no acute events Sacral wound healed and no more skin defect noted"
[2016-01-17] MEDS: Enoxaparin 40 mg Syringe SC SCH (11:13)
[2016-01-17] MEDS: Phenytoin 100 mg/4 ml Oral Susp UD PEG SCH ×3 (11:13→17:52)
[2016-01-18] MEDS: Enoxaparin 40 mg Syringe SC SCH (09:20)
[2016-01-18] MEDS: Phenytoin 100 mg/4 ml Oral Susp UD PEG SCH ×3 (09:20→17:32)
--- NOTE | 2016-01-18 10:58 | CP.PCM.PN ---
<Nely Pate - Last Filed: 01/18/16 10:55> Subjective - Date & Time of Evaluation Date of Evaluation: 01/18/16 Time of Evaluation: 08:30 - Subjective Subjective: Medicine Progress Note Patient seen and examined. NO acute change in mental status. The patient does not appear to be in acute distress. No secretions noted at trach at this time. PEG tube insertion site appears non-erythematous, non-edematous. PEG functioning properly at 50cc/hr. Sacral decubitus ulcer wound is now closed. ROS could not be obtained. Patient had blood work drawn yesterday that was reviewed. Next check will be on Thursday. Objective - Vital Signs/Intake and Output Vital Signs (last 24 hours): Temp Pulse Resp BP Pulse Ox 98.2 F 89 20 129/81 99 01/18/16 06:28 01/18/16 06:28 01/18/16 06:28 01/18/16 06:28 01/18/16 06:28 Intake and Output: 01/18/16 01/18/16 06:59 18:59 Output Total 650 Balance -650 - Medications Medications: Current Medications Aspirin (Aspirin) 325 mg PO DAILY [facility] Last Admin: 11/23/15 09:42 Dose: 325 mg Clopidogrel Bisulfate (Plavix) 75 mg PO DAILY [facility] Last Admin: 01/18/16 09:21 Dose: 75 mg Enoxaparin Sodium (Lovenox) 40 mg SC DAILY [facility] Last Admin: 01/18/16 09:20 Dose: 40 mg Oxybutynin Chloride (Ditropan Tab) 5 mg PO TID [facility] Last Admin: 01/18/16 09:20 Dose: 5 mg Phenytoin (Dilantin) 100 mg PEG TID [facility] Last Admin: 01/18/16 09:20 Dose: 100 mg Polyethylene Glycol (Miralax) 17 gm PEG BID [facility] Last Admin: 08/21/15 11:26 Dose: Not Given - Labs Labs: 01/17/16 06:25 01/17/16 06:25 PT 10.6 SECONDS (9.7-12.2) 11/24/15 14:10 INR 1.0 11/24/15 14:10 APTT 25 SECONDS (21-34) 11/24/15 14:10 - Additional Findings Additional findings: - Constitutional Appears: No Acute Distress - Head Exam Head Exam: ATRAUMATIC, NORMOCEPHALIC - Eye Exam Eye Exam: absent: Conjunctival injection, Scleral icterus - ENT Exam ENT Exam: Mucous Membranes Moist - Respiratory Exam Additional comments: coarse breath sounds - Cardiovascular Exam Cardiovascular Exam: REGULAR RHYTHM, +S1, +S2. absent: Gallop, Rubs, Murmur - GI/Abdominal Exam GI & Abdominal Exam: Soft, Normal Bowel Sounds - Extremities Exam Extremities Exam: absent: Pedal Edema - Neurological Exam Neurological Exam: Altered - Skin Skin Exam: Dry, Warm Assessment and Plan - Assessment and Plan (Free Text) Assessment: (1) Anoxic encephalopathy Assessment & Plan: No acute change in mental status. PEG tube operational, tube feedings running at 50cc/hr at night and bolus feeds during the day 12/28: PEG tube placed at bedside by Dr. Chan. Abdominal X-ray showed PEG tube in position with contrast entering appropriately. PEG tube approved for use. GCS 8 [id number] patient with trach in place. Pending placement training family in how to take care of patient Status: Acute (2) Respiratory failure Assessment & Plan: no clinical change. trach collar at 6L O2. No secretions noted this morning. Trach collar in place. Sputum culture 12/06 + pseudomonas: probably colonization. afebrile. normal white count. CXR without infiltrates. No antibiotics for now per Dr. Armstrong tracheostomy with tube change by Dr. Chan on 11/27/15 CXR 12/08--> Tracheostomy tube appears deviated to the left which may be related to patient positioning. Clinical correlation as this does not project over the midline trachea. Bibasilar atelectasis. Mild stable nodularity at the right lung base. (see full report) Cipro started on 11/30 was stopped on 12/08. clean and dry site saturating well on 7L O2 via trach collar No blood tinged secretions noted Bronchial washing grew Pseudomonas ID consult - Dr. Armstrong - help appreciated Working on getting portable suctioning for family to practice Status: Acute (3) Urinary tract infection Assessment & Plan: 01/18: afebrile overnight. WBC 9.5 yesterday. CBC to be done twice weekly, unless increased frequency is clinically indicated 01/14: Off IV Zosyn, continue baker catheter. f/u CBC and monitor VS 01/13: Stop IV Zosyn today. 2/20: Continue IV Zosyn at this time with plan to dc on 01/13 per ID 01/11: continue Zosyn 3.375gm IVPB Q6H (day 5) will discontinue on 01/13/1601/09: Will speak with Dr. Armstrong regarding length of IV antibiotic therapy. In the meantime, continue Zosyn 3.375gm IVPB Q6H. Continue monitoring CBC and for fevers. 01/07: Continue Zosyn 3.375gm IVPB Q6H. Monitor for fevers, Monitor CBC 01/06: urine culture positive for proteus mirabilis (sensitive to tobramycin, zosyn, amikacin, gentamicin). baker catheter to be re-inserted. Switch to Zosyn 3.375gm IVPB Q6H per Dr. Armstrong. 01/05: f/u urine culture sensitivities. Continue Primaxin 500mg IVPB Q8H as per Dr. Armstrong. 01/04: Urine culture + for gram negative rods. spoke with Dr. Armstrong. switched rocephin to primaxin 500mg IVPB Q8H [place] catheter ordered to be used with skin prep to keep it on 01/03: urinalysis had 4+ protein, positive nitrates, 3+ leukocyte esterase. Rocephin 1gm IVPB daily started. Continue [place] catheter. Ditropan 5mg PEG TID for leakage around catheter Urology consult - Dr. Oropeza - help appreciated ID on board - Dr. Armstrong - help appreciated Status: Acute (4) CAD (coronary artery disease) Assessment & Plan: Cardiac stents on 06/13/15. Continue Lisinopril 5mg PO daily Continue Plavix 75mg PO daily Continue ASA 325mg PO daily-currently held due to recent trach bleeding Status: Acute (5) Seizures Assessment & Plan: Continue dilantin 100mg PEG TID Status: Acute (6) Bed sore Assessment & Plan: 01/15: Sacral ulcer improving considerably, Stage I (one) ulcer observed, non- open continue wound care, sensicare, and medihoney sacral ulcer. Stage II 0.5cm x 1.5cm Continue wound care, sensicare and medihoney. Continue repositioning of patient q2H. dolphin mattress. Heel air boots. Status: Acute (7) Prophylactic measure Assessment & Plan: Lovenox 40 SC daily Pepcid 20 mg PO BID SCDs Status: Acute <Rashel Rodrigues - Last Filed: 01/18/16 17:08> Objective - Vital Signs/Intake and Output Vital Signs (last 24 hours): Temp Pulse Resp BP Pulse Ox 97.8 F 100 H 20 122/79 100 01/18/16 14:00 01/18/16 14:00 01/18/16 14:00 01/18/16 14:00 01/18/16 14:00 Intake and Output: 01/18/16 01/18/16 06:59 18:59 Intake Total 540 Output Total 650 750 Balance -650 -210 - Medications Medications: Current Medications Aspirin (Aspirin) 325 mg PO DAILY [facility] Last Admin: 11/23/15 09:42 Dose: 325 mg Clopidogrel Bisulfate (Plavix) 75 mg PO DAILY [facility] Last Admin: 01/18/16 09:21 Dose: 75 mg Enoxaparin Sodium (Lovenox) 40 mg SC DAILY [facility] Last Admin: 01/18/16 09:20 Dose: 40 mg Oxybutynin Chloride (Ditropan Tab) 5 mg PO TID [facility] Last Admin: 01/18/16 14:21 Dose: 5 mg Phenytoin (Dilantin) 100 mg PEG TID [facility] Last Admin: 01/18/16 14:21 Dose: 100 mg Polyethylene Glycol (Miralax) 17 gm PEG BID [facility] Last Admin: 08/21/15 11:26 Dose: Not Given - Labs Labs: 01/17/16 06:25 01/17/16 06:25 PT 10.6 SECONDS (9.7-12.2) 11/24/15 14:10 INR 1.0 11/24/15 14:10 APTT 25 SECONDS (21-34) 11/24/15 14:10 Attending/Attestation - Attestation I have personally seen and examined this patient.: Yes I have fully participated in the care of the patient.: Yes I have reviewed all pertinent clinical information, including history, physical exam and plan: Yes Notes (Text): 01/18/16 17:03 Patient was seen and examined during the round with the resident. No new events patient is tolerating tube feeding. PEG site is clean and healthy no active bleeding no signs of infection. he has healed sacral decubitus ulcer. Patient tracheostomy site also complained no signs of any bleeding or any infection. Continue current supportive management Discussed planning: awaiting placement
--- NOTE | 2016-01-19 00:17 | CP.PCM.PN ---
"<Howard Lopez - Last Filed: 01/19/16 08:38> Subjective - Date & Time of Evaluation Date of Evaluation: 01/19/16 Time of Evaluation: 00:15 - Subjective Subjective: PGY1 Medicine Progress Note | Dr. Rodrigues's Service Pt seen at bedside. At the time of exam, pt was in bed in NAD with no acute change in clinical status. ROS unobtainable. Trach collar in place with no secretions note, no blood noted in secretion receptacle. PEG tube functioning properly at 50cc/hr with no signs of infection at insertion site. Objective - Vital Signs/Intake and Output Vital Signs (last 24 hours): Temp Pulse Resp BP Pulse Ox 98.7 F 97 H 19 107/70 99 01/18/16 21:13 01/18/16 21:13 01/18/16 21:13 01/18/16 21:13 01/18/16 21:13 Intake and Output: 01/18/16 01/19/16 18:59 06:59 Intake Total 540 Output Total 750 800 Balance -210 -800 - Medications Medications: Current Medications Aspirin (Aspirin) 325 mg PO DAILY [facility] Last Admin: 11/23/15 09:42 Dose: 325 mg Clopidogrel Bisulfate (Plavix) 75 mg PO DAILY [facility] Last Admin: 01/18/16 09:21 Dose: 75 mg Enoxaparin Sodium (Lovenox) 40 mg SC DAILY [facility] Last Admin: 01/18/16 09:20 Dose: 40 mg Oxybutynin Chloride (Ditropan Tab) 5 mg PO TID [facility] Last Admin: 01/18/16 17:32 Dose: 5 mg Phenytoin (Dilantin) 100 mg PEG TID [facility] Last Admin: 01/18/16 17:32 Dose: 100 mg Polyethylene Glycol (Miralax) 17 gm PEG BID [facility] Last Admin: 08/21/15 11:26 Dose: Not Given - Labs Labs: 01/17/16 06:25 01/17/16 06:25 PT 10.6 SECONDS (9.7-12.2) 11/24/15 14:10 INR 1.0 11/24/15 14:10 APTT 25 SECONDS (21-34) 11/24/15 14:10 - Additional Findings Additional findings: - Constitutional Appears: No Acute Distress - Head Exam Head Exam: ATRAUMATIC, NORMOCEPHALIC - Eye Exam Eye Exam: absent: Conjunctival injection, Scleral icterus - ENT Exam ENT Exam: Mucous Membranes Moist - Respiratory Exam Additional comments: coarse breath sounds - Cardiovascular Exam Cardiovascular Exam: REGULAR RHYTHM, +S1, +S2. absent: Gallop, Rubs, Murmur - GI/Abdominal Exam GI & Abdominal Exam: Soft, Normal Bowel Sounds - Extremities Exam Extremities Exam: absent: Pedal Edema - Neurological Exam Neurological Exam: Altered - Skin Skin Exam: Dry, Warm Assessment and Plan - Assessment and Plan (Free Text) Assessment: (1) Anoxic encephalopathy Assessment & Plan: No acute change in mental status. PEG tube operational, tube feedings running at 50cc/hr at night and bolus feeds during the day 12/28: PEG tube placed at bedside by Dr. Chan. Abdominal X-ray showed PEG tube in position with contrast entering appropriately. PEG tube approved for use. GCS 8 E4V1M3 patient with trach in place. Pending placement training family in how to take care of patient (2) Respiratory failure Assessment & Plan: no clinical change. trach collar at 6L O2. No secretions noted this morning. Trach collar in place. Sputum culture 12/06 + pseudomonas: probably colonization. afebrile. normal white count. CXR without infiltrates. No antibiotics for now per Dr. Armstrong tracheostomy with tube change by Dr. Chan on 11/27/15 CXR 12/08--> Tracheostomy tube appears deviated to the left which may be related to patient positioning. Clinical correlation as this does not project over the midline trachea. Bibasilar atelectasis. Mild stable nodularity at the right lung base. (see full report) Cipro started on 11/30 was stopped on 12/08. clean and dry site saturating well on 7L O2 via trach collar No blood tinged secretions noted Bronchial washing grew Pseudomonas ID consult - Dr. Armstrong - help appreciated Working on getting portable suctioning for family to practice (3) Urinary tract infection Assessment & Plan: 01/19: afebrile, continue monitoring for fever 01/18: afebrile overnight. WBC 9.5 yesterday. CBC to be done twice weekly, unless increased frequency is clinically indicated 01/14: Off IV Zosyn, continue baker catheter. f/u CBC and monitor VS 01/13: Stop IV Zosyn today. 01/12: Continue IV Zosyn at this time with plan to dc on 01/13 per ID 01/11: continue Zosyn 3.375gm IVPB Q6H (day 5) will discontinue on 01/13/1601/09: Will speak with Dr. Armstrong regarding length of IV antibiotic therapy. In the meantime, continue Zosyn 3.375gm IVPB Q6H. Continue monitoring CBC and for fevers. 01/07: Continue Zosyn 3.375gm IVPB Q6H. Monitor for fevers, Monitor CBC 01/06: urine culture positive for proteus mirabilis (sensitive to tobramycin, zosyn, amikacin, gentamicin). baker catheter to be re-inserted. Switch to Zosyn 3.375gm IVPB Q6H per Dr. Armstrong. 01/05: f/u urine culture sensitivities. Continue Primaxin 500mg IVPB Q8H as per Dr. Armstrong. 01/04: Urine culture + for gram negative rods. spoke with Dr. Armstrong. switched rocephin to primaxin 500mg IVPB Q8H [place] catheter ordered to be used with skin prep to keep it on 01/03: urinalysis had 4+ protein, positive nitrates, 3+ leukocyte esterase. Rocephin 1gm IVPB daily started. Continue [place] catheter. Ditropan 5mg PEG TID for leakage around catheter Urology consult - Dr. Oropeza - help appreciated ID on board - Dr. Armstrong - help appreciated (4) CAD (coronary artery disease) Assessment & Plan: Cardiac stents on 06/13/15. Continue Lisinopril 5mg PO daily Continue Plavix 75mg PO daily Continue ASA 325mg PO daily-currently held due to recent trach bleeding (5) Seizures Assessment & Plan: Continue dilantin 100mg PEG TID (6) Bed sore Assessment & Plan: 01/19: Sacral ulcer healed, Stage 0 01/15: Sacral ulcer improving considerably, Stage I (one) ulcer observed, non- open continue wound care, sensicare, and medihoney sacral ulcer. Stage II 0.5cm x 1.5cm Continue wound care, sensicare and medihoney. Continue repositioning of patient q2H. dolphin mattress. Heel air boots. (7) Prophylactic measure Assessment & Plan: Lovenox 40 SC daily Pepcid 20 mg PO BID [facility] <Rashel Rodrigues - Last Filed: 01/19/16 15:22> Objective - Vital Signs/Intake and Output Vital Signs (last 24 hours): Temp Pulse Resp BP Pulse Ox 97.6 F 107 H 18 134/87 99 01/19/16 14:00 01/19/16 14:00 01/19/16 14:00 01/19/16 14:00 01/19/16 14:00 Intake and Output: 01/19/16 01/19/16 06:59 18:59 Output Total 1300 800 Balance -1300 -800 - Medications Medications: Current Medications Aspirin (Aspirin) 325 mg PO DAILY [facility] Last Admin: 11/23/15 09:42 Dose: 325 mg Clopidogrel Bisulfate (Plavix) 75 mg PO DAILY [facility] Last Admin: 01/19/16 11:20 Dose: 75 mg Enoxaparin Sodium (Lovenox) 40 mg SC DAILY [facility] Last Admin: 01/19/16 11:19 Dose: 40 mg Lisinopril (Zestril) 5 mg PO DAILY [facility] Last Admin: 01/19/16 11:20 Dose: 5 mg Oxybutynin Chloride (Ditropan Tab) 5 mg PO TID [facility] Last Admin: 01/19/16 14:16 Dose: 5 mg Phenytoin (Dilantin) 100 mg PEG TID [facility] Last Admin: 01/19/16 14:16 Dose: 100 mg Polyethylene Glycol (Miralax) 17 gm PEG BID [facility] Last Admin: 08/21/15 11:26 Dose: Not Given - Labs Labs: 01/17/16 06:25 01/17/16 06:25 PT 10.6 SECONDS (9.7-12.2) 11/24/15 14:10 INR 1.0 11/24/15 14:10 APTT 25 SECONDS (21-34) 11/24/15 14:10 Attending/Attestation - Attestation I have personally seen and examined this patient.: Yes I have fully participated in the care of the patient.: Yes I have reviewed all pertinent clinical information, including history, physical exam and plan: Yes Notes (Text): 01/19/16 15:22 Patient was seen and examined in the room during the round with the resident. Patient condition unchange, no acute distress no fever. Continue current supportive management"
[2016-01-19] MEDS: Enoxaparin 40 mg Syringe SC SCH (11:19)
[2016-01-19] MEDS: Phenytoin 100 mg/4 ml Oral Susp UD PEG SCH ×3 (11:20→17:43)
--- NOTE | 2016-01-20 00:46 | CP.PCM.PN ---
"<Howard Lopez - Last Filed: 01/20/16 03:54> Subjective - Date & Time of Evaluation Date of Evaluation: 01/20/16 Time of Evaluation: 00:45 - Subjective Subjective: PGY1 Medicine Progress Note | Dr. Rodrigues's Service Pt seen at bedside. At the time of exam, pt was in bed in NAD with no interval change in clinical or mental status. ROS unobtainable. Trach collar in place with no secretions or blood noted at trach site. PEG tube functioning properly at 50cc/hr with no signs of infection at insertion site. Baker catheter in place. Objective - Vital Signs/Intake and Output Vital Signs (last 24 hours): Temp Pulse Resp BP Pulse Ox 98.3 F 85 18 126/81 98 01/19/16 21:40 01/19/16 21:40 01/19/16 21:40 01/19/16 21:40 01/19/16 21:40 Intake and Output: 01/19/16 01/20/16 18:59 06:59 Intake Total 1150 Output Total 800 550 Balance -800 600 - Medications Medications: Current Medications Aspirin (Aspirin) 325 mg PO DAILY [facility] Last Admin: 11/23/15 09:42 Dose: 325 mg Clopidogrel Bisulfate (Plavix) 75 mg PO DAILY [facility] Last Admin: 01/19/16 11:20 Dose: 75 mg Enoxaparin Sodium (Lovenox) 40 mg SC DAILY [facility] Last Admin: 01/19/16 11:19 Dose: 40 mg Lisinopril (Zestril) 5 mg PO DAILY [facility] Last Admin: 01/19/16 11:20 Dose: 5 mg Oxybutynin Chloride (Ditropan Tab) 5 mg PO TID [facility] Last Admin: 01/19/16 17:43 Dose: 5 mg Phenytoin (Dilantin) 100 mg PEG TID [facility] Last Admin: 01/19/16 17:43 Dose: 100 mg Polyethylene Glycol (Miralax) 17 gm PEG BID [facility] Last Admin: 08/21/15 11:26 Dose: Not Given - Labs Labs: 01/17/16 06:25 01/17/16 06:25 PT 10.6 SECONDS (9.7-12.2) 11/24/15 14:10 INR 1.0 11/24/15 14:10 APTT 25 SECONDS (21-34) 11/24/15 14:10 - Additional Findings Additional findings: - Constitutional Appears: No Acute Distress - Head Exam Head Exam: ATRAUMATIC, NORMOCEPHALIC - Eye Exam Eye Exam: absent: Conjunctival injection, Scleral icterus - ENT Exam ENT Exam: Mucous Membranes Moist Additional comments: Trach collar in place, no secretions or blood appreciated at trach, receptacle replaced, - Respiratory Exam Additional comments: coarse breath sounds - Cardiovascular Exam Cardiovascular Exam: REGULAR RHYTHM, +S1, +S2. absent: Gallop, Rubs, Murmur - GI/Abdominal Exam GI & Abdominal Exam: Soft, Normal Bowel Sounds Additional comments: PEG tube functioning, running at 50cc/hr - Extremities Exam Extremities Exam: absent: Pedal Edema - Neurological Exam Neurological Exam: Altered - Skin Skin Exam: Dry, Warm Assessment and Plan - Assessment and Plan (Free Text) Assessment: (1) Anoxic encephalopathy Assessment & Plan: No acute change in mental status. PEG tube operational, tube feedings running at 50cc/hr at night and bolus feeds during the day 12/28: PEG tube placed at bedside by Dr. Chan. Abdominal X-ray showed PEG tube in position with contrast entering appropriately. PEG tube approved for use. GCS 8 E4V1M3 patient with trach in place. Pending placement training family in how to take care of patient (2) Respiratory failure Assessment & Plan: no interval change. trach collar at 6L O2. No secretions noted this morning. Trach collar in place. Sputum culture 12/06 + pseudomonas: probably colonization. afebrile. normal white count. CXR without infiltrates. No antibiotics for now per Dr. Armstrong tracheostomy with tube change by Dr. Chan on 11/27/15 CXR 12/08--> Tracheostomy tube appears deviated to the left which may be related to patient positioning. Clinical correlation as this does not project over the midline trachea. Bibasilar atelectasis. Mild stable nodularity at the right lung base. (see full report) Cipro started on 11/30 was stopped on 12/08. clean and dry site saturating well on 7L O2 via trach collar No blood tinged secretions noted Bronchial washing grew Pseudomonas ID consult - Dr. Armstrong - help appreciated Working on getting portable suctioning for family to practice (3) Urinary tract infection Assessment & Plan: afebrile, continue monitoring for fever 01/18: afebrile overnight. WBC 9.5 yesterday. CBC to be done twice weekly, unless increased frequency is clinically indicated 01/14: Off IV Zosyn, continue baker catheter. f/u CBC and monitor VS 01/13: Stop IV Zosyn today. 01/12: Continue IV Zosyn at this time with plan to dc on 01/13 per ID 01/11: continue Zosyn 3.375gm IVPB Q6H (day 5) will discontinue on 01/13/1601/09: Will speak with Dr. Armstrong regarding length of IV antibiotic therapy. In the meantime, continue Zosyn 3.375gm IVPB Q6H. Continue monitoring CBC and for fevers. 01/07: Continue Zosyn 3.375gm IVPB Q6H. Monitor for fevers, Monitor CBC 01/06: urine culture positive for proteus mirabilis (sensitive to tobramycin, zosyn, amikacin, gentamicin). baker catheter to be re-inserted. Switch to Zosyn 3.375gm IVPB Q6H per Dr. Armstrong. 01/05: f/u urine culture sensitivities. Continue Primaxin 500mg IVPB Q8H as per Dr. Armstrong. 01/04: Urine culture + for gram negative rods. spoke with Dr. Armstrong. switched rocephin to primaxin 500mg IVPB Q8H [place] catheter ordered to be used with skin prep to keep it on 01/03: urinalysis had 4+ protein, positive nitrates, 3+ leukocyte esterase. Rocephin 1gm IVPB daily started. Continue [place] catheter. Ditropan 5mg PEG TID for leakage around catheter Urology consult - Dr. Oropeza - help appreciated ID on board - Dr. Armstrong - help appreciated (4) CAD (coronary artery disease) Assessment & Plan: Cardiac stents on 06/13/15. Continue Lisinopril 5mg PO daily Continue Plavix 75mg PO daily Continue ASA 325mg PO daily-currently held due to recent trach bleeding (5) Seizures Assessment & Plan: Continue dilantin 100mg PEG TID (6) Bed sore Assessment & Plan: 01/19: Sacral ulcer healed, Stage 0 01/15: Sacral ulcer improving considerably, Stage I (one) ulcer observed, non- open continue wound care, sensicare, and medihoney sacral ulcer. Stage II 0.5cm x 1.5cm Continue wound care, sensicare and medihoney. Continue repositioning of patient q2H. dolphin mattress. Heel air boots. (7) Prophylactic measure Assessment & Plan: Lovenox 40 SC daily Pepcid 20 mg PO BID [facility]CD[facility] <Nyunt,Rashel - Last Filed: 01/20/16 14:49> Objective - Vital Signs/Intake and Output Vital Signs (last 24 hours): Temp Pulse Resp BP Pulse Ox 98.0 F 99 H 20 119/82 98 01/20/16 14:37 01/20/16 14:37 01/20/16 14:37 01/20/16 14:37 01/20/16 14:37 Intake and Output: 01/20/16 01/20/16 06:59 18:59 Intake Total 1150 Output Total 850 450 Balance 300 -450 - Medications Medications: Current Medications Aspirin (Aspirin) 325 mg PO DAILY [facility] Last Admin: 11/23/15 09:42 Dose: 325 mg Clopidogrel Bisulfate (Plavix) 75 mg PO DAILY [facility] Last Admin: 01/20/16 10:46 Dose: 75 mg Enoxaparin Sodium (Lovenox) 40 mg SC DAILY [facility] Last Admin: 01/20/16 10:46 Dose: 40 mg Lisinopril (Zestril) 5 mg PO DAILY [facility] Last Admin: 01/20/16 10:46 Dose: 5 mg Oxybutynin Chloride (Ditropan Tab) 5 mg PO TID [facility] Last Admin: 01/20/16 14:20 Dose: 5 mg Phenytoin (Dilantin) 100 mg PEG TID [facility] Last Admin: 01/20/16 14:20 Dose: 100 mg Polyethylene Glycol (Miralax) 17 gm PEG BID [facility] Last Admin: 08/21/15 11:26 Dose: Not Given - Labs Labs: 01/17/16 06:25 01/17/16 06:25 PT 10.6 SECONDS (9.7-12.2) 11/24/15 14:10 INR 1.0 11/24/15 14:10 APTT 25 SECONDS (21-34) 11/24/15 14:10 Attending/Attestation - Attestation I have personally seen and examined this patient.: Yes I have fully participated in the care of the patient.: Yes I have reviewed all pertinent clinical information, including history, physical exam and plan: Yes Notes (Text): 01/20/16 14:46 Patient was seen and examined during the round with the resident. cont supportive management no fever tolerating TF"
[2016-01-20] MEDS: Phenytoin 100 mg/4 ml Oral Susp UD PEG SCH ×3 (10:46→17:27)
[2016-01-20] MEDS: Enoxaparin 40 mg Syringe SC SCH (10:46)
[2016-01-21 07:15] LABS: BASO % 0.5 % (0.0-2.0); EOS % 10.2 % (0.0-4.0); HEMOGLOBIN 12.1 g/dL (12.0-18.0); LYMPH # 1.6 K/uL (1.0-4.3); MEAN CELL VOLUME 93.6 fL (80.0-94.0); MEAN CORPUSCULAR HEMOGLOBIN 31.4 pg (27.0-31.0); MEAN CORPUSCULAR HGB CONC 33.6 g/dL (33.0-37.0); MEAN PLATELET VOLUME 8.5 fL (7.2-11.7); MONO # 1.1 K/uL (0.0-0.8); MONO % 10.7 % (0.0-10.0); NEUT # 6.4 K/uL (1.8-7.0); NEUT % 62.6 % (50.0-75.0); RBC 3.86 Mil/uL (4.40-5.90); WHITE BLOOD COUNT 10.2 K/uL (4.8-10.8)
[2016-01-21 07:37] LABS: ALBUMIN 3.5 g/dL (3.5-5.0)
[2016-01-21 07:40] LABS: ALB/GLOB RATIO 0.9 (1.0-2.1); ALT/SGPT 55 U/L (21-72); AST/SGOT 37 U/L (17-59); BLOOD UREA NITROGEN 18 mg/dL (9-20); GFR NON-AFRICAN AMERICAN > 60
[2016-01-21 07:41] LABS: CALCIUM 8.8 mg/dL (8.4-10.2)
--- NOTE | 2016-01-21 07:48 | CP.PCM.PN ---
"<Howard Lopez - Last Filed: 01/21/16 14:14> Subjective - Date & Time of Evaluation Date of Evaluation: 01/21/16 Time of Evaluation: 07:48 - Subjective Subjective: PGY1 Medicine Progress Note | Dr. Rodrigues's Service Pt seen at bedside. At the time of exam, pt was in bed in NAD. There has been no change in clinical/mental status. ROS unobtainable. Pt. unresponsive to painful/tactile/verbal stimuli. Trach collar in place with no secretions or blood noted at trach site. PEG tube functioning properly with no signs of infection at insertion site. Baker catheter in place. Objective - Vital Signs/Intake and Output Vital Signs (last 24 hours): Temp Pulse Resp BP Pulse Ox 98.4 F 97 H 20 109/70 98 01/21/16 05:05 01/21/16 05:05 01/21/16 05:05 01/21/16 05:05 01/21/16 05:05 Intake and Output: 01/21/16 01/21/16 06:59 18:59 Intake Total 2050 Output Total 1650 Balance 400 - Medications Medications: Current Medications Aspirin (Aspirin) 325 mg PO DAILY [facility] Last Admin: 11/23/15 09:42 Dose: 325 mg Clopidogrel Bisulfate (Plavix) 75 mg PO DAILY [facility] Last Admin: 01/20/16 10:46 Dose: 75 mg Enoxaparin Sodium (Lovenox) 40 mg SC DAILY [facility] Last Admin: 01/20/16 10:46 Dose: 40 mg Lisinopril (Zestril) 5 mg PO DAILY [facility] Last Admin: 01/20/16 10:46 Dose: 5 mg Oxybutynin Chloride (Ditropan Tab) 5 mg PO TID [facility] Last Admin: 01/20/16 17:28 Dose: 5 mg Phenytoin (Dilantin) 100 mg PEG TID [facility] Last Admin: 01/20/16 17:27 Dose: 100 mg Polyethylene Glycol (Miralax) 17 gm PEG BID [facility] Last Admin: 08/21/15 11:26 Dose: Not Given - Labs Labs: 01/21/16 06:44 01/21/16 06:44 PT 10.6 SECONDS (9.7-12.2) 11/24/15 14:10 INR 1.0 11/24/15 14:10 APTT 25 SECONDS (21-34) 11/24/15 14:10 - Additional Findings Additional findings: - Constitutional Appears: No Acute Distress - Head Exam Head Exam: ATRAUMATIC, NORMOCEPHALIC - Eye Exam Eye Exam: absent: Conjunctival injection, Scleral icterus - ENT Exam ENT Exam: Mucous Membranes Moist Additional comments: Trach collar in place, no secretions or blood appreciated at trach, receptacle replaced, - Respiratory Exam Additional comments: coarse breath sounds - Cardiovascular Exam Cardiovascular Exam: REGULAR RHYTHM, +S1, +S2. absent: Gallop, Rubs, Murmur - GI/Abdominal Exam GI & Abdominal Exam: Soft, Normal Bowel Sounds Additional comments: PEG tube functioning, running at 50cc/hr - Extremities Exam Extremities Exam: absent: Pedal Edema - Neurological Exam Neurological Exam: Altered - Skin Skin Exam: Dry, Warm Assessment and Plan - Assessment and Plan (Free Text) Assessment: (1) Anoxic encephalopathy Assessment & Plan: No acute change in mental status. PEG tube operational, tube feedings running at 50cc/hr at night and bolus feeds during the day 12/28: PEG tube placed at bedside by Dr. Chan. Abdominal X-ray showed PEG tube in position with contrast entering appropriately. PEG tube approved for use. GCS 8 E4V1M3 patient with trach in place. Pending placement training family in how to take care of patient (2) Respiratory failure Assessment & Plan: no interval change. trach collar at 6L O2. No secretions noted this morning. Trach collar in place. Sputum culture 12/06 + pseudomonas: probably colonization. afebrile. normal white count. CXR without infiltrates. No antibiotics for now per Dr. Armstrong tracheostomy with tube change by Dr. Chan on 11/27/15 CXR 12/08--> Tracheostomy tube appears deviated to the left which may be related to patient positioning. Clinical correlation as this does not project over the midline trachea. Bibasilar atelectasis. Mild stable nodularity at the right lung base. (see full report) Cipro started on 11/30 was stopped on 12/08. clean and dry site saturating well on 7L O2 via trach collar No blood tinged secretions noted Bronchial washing grew Pseudomonas ID consult - Dr. Armstrong - help appreciated Working on getting portable suctioning for family to practice (3) Urinary tract infection Assessment & Plan: afebrile, continue monitoring for fever 01/18: afebrile overnight. WBC 9.5 yesterday. CBC to be done twice weekly, unless increased frequency is clinically indicated 01/14: Off IV Zosyn, continue baker catheter. f/u CBC and monitor VS 01/13: Stop IV Zosyn today. 01/12: Continue IV Zosyn at this time with plan to dc on 01/13 per ID 01/11: continue Zosyn 3.375gm IVPB Q6H (day 5) will discontinue on 01/13/1601/09: Will speak with Dr. Armstrong regarding length of IV antibiotic therapy. In the meantime, continue Zosyn 3.375gm IVPB Q6H. Continue monitoring CBC and for fevers. 01/07: Continue Zosyn 3.375gm IVPB Q6H. Monitor for fevers, Monitor CBC 01/06: urine culture positive for proteus mirabilis (sensitive to tobramycin, zosyn, amikacin, gentamicin). baker catheter to be re-inserted. Switch to Zosyn 3.375gm IVPB Q6H per Dr. Armstrong. 01/05: f/u urine culture sensitivities. Continue Primaxin 500mg IVPB Q8H as per Dr. Armstrong. 01/04: Urine culture + for gram negative rods. spoke with Dr. Armstrong. switched rocephin to primaxin 500mg IVPB Q8H [place] catheter ordered to be used with skin prep to keep it on 01/03: urinalysis had 4+ protein, positive nitrates, 3+ leukocyte esterase. Rocephin 1gm IVPB daily started. Continue [place] catheter. Ditropan 5mg PEG TID for leakage around catheter Urology consult - Dr. Oropeza - help appreciated ID on board - Dr. Armstrong - help appreciated (4) CAD (coronary artery disease) Assessment & Plan: Cardiac stents on 06/13/15. Continue Lisinopril 5mg PO daily Continue Plavix 75mg PO daily Continue ASA 325mg PO daily-currently held due to recent trach bleeding (5) Seizures Assessment & Plan: Continue dilantin 100mg PEG TID (6) Bed sore Assessment & Plan: : sacral ulcer to be evaluated minimum twice per week. 01/19: Sacral ulcer healed, Stage 0 01/15: Sacral ulcer improving considerably, Stage I (one) ulcer observed, non- open continue wound care, sensicare, and medihoney sacral ulcer. Stage II 0.5cm x 1.5cm Continue wound care, sensicare and medihoney. Continue repositioning of patient q2H. dolphin mattress. Heel air boots. (7) Prophylactic measure Assessment & Plan: Lovenox 40 SC daily Pepcid 20 mg PO BID [facility]CD[facility] <Rashel Rodrigues - Last Filed: 01/21/16 15:29> Objective - Vital Signs/Intake and Output Vital Signs (last 24 hours): Temp Pulse Resp BP Pulse Ox 98.5 F 91 H 20 126/86 98 01/21/16 14:00 01/21/16 14:00 01/21/16 14:00 01/21/16 14:00 01/21/16 14:00 Intake and Output: 01/21/16 01/21/16 06:59 18:59 Intake Total 2050 Output Total 1650 925 Balance 400 -925 - Medications Medications: Current Medications Aspirin (Aspirin) 325 mg PO DAILY [facility] Last Admin: 11/23/15 09:42 Dose: 325 mg Clopidogrel Bisulfate (Plavix) 75 mg PO DAILY [facility] Last Admin: 01/21/16 10:27 Dose: 75 mg Enoxaparin Sodium (Lovenox) 40 mg SC DAILY [facility] Last Admin: 01/21/16 10:28 Dose: 40 mg Lisinopril (Zestril) 5 mg PO DAILY [facility] Last Admin: 01/21/16 10:27 Dose: 5 mg Oxybutynin Chloride (Ditropan Tab) 5 mg PO TID [facility] Last Admin: 01/21/16 14:48 Dose: 5 mg Phenytoin (Dilantin) 100 mg PEG TID [facility] Last Admin: 01/21/16 14:47 Dose: 100 mg Polyethylene Glycol (Miralax) 17 gm PEG BID [facility] Last Admin: 08/21/15 11:26 Dose: Not Given - Labs Labs: 01/21/16 06:44 01/21/16 06:44 PT 10.6 SECONDS (9.7-12.2) 11/24/15 14:10 INR 1.0 11/24/15 14:10 APTT 25 SECONDS (21-34) 11/24/15 14:10 Attending/Attestation - Attestation I have personally seen and examined this patient.: Yes I have fully participated in the care of the patient.: Yes I have reviewed all pertinent clinical information, including history, physical exam and plan: Yes Notes (Text): 01/21/16 15:13 Patient was seen and examined during the round with the resident. No new events. Patient is tolerating tube feeding. Patient has no fever or chills. Trachea tube suction show clear fluid No leakage from PEG tube or from [place]"
[2016-01-21] MEDS: Phenytoin 100 mg/4 ml Oral Susp UD PEG SCH ×3 (10:27→18:53)
[2016-01-21] MEDS: Enoxaparin 40 mg Syringe SC SCH (10:28)
--- NOTE | 2016-01-22 10:02 | CP.PCM.PN ---
Addendum entered and electronically signed by Joel Lin DO 01/23/16 08: 42: (1) Anoxic encephalopathy Assessment & Plan: 01/21: No acute change in mental status, peg tube operational no signs of blockage or infection(bolus during day and 50cc/hr at night. No acute change in mental status. PEG tube operational, tube feedings running at 50cc/hr at night and bolus feeds during the day 12/28: PEG tube placed at bedside by Dr. Chan. Abdominal X-ray showed PEG tube in position with contrast entering appropriately. PEG tube approved for use. GCS 8 [id number] patient with trach in place. Pending placement training family in how to take care of patient (2) Respiratory failure Assessment & Plan: 01/21: No interval change, trach collar in place 6L O2 still, no secretions. no interval change. trach collar at 6L O2. No secretions noted this morning. Trach collar in place. Sputum culture 12/06 + pseudomonas: probably colonization. afebrile. normal white count. CXR without infiltrates. No antibiotics for now per Dr. Armstrong tracheostomy with tube change by Dr. Chan on 11/27/15 CXR 12/08--> Tracheostomy tube appears deviated to the left which may be related to patient positioning. Clinical correlation as this does not project over the midline trachea. Bibasilar atelectasis. Mild stable nodularity at the right lung base. (see full report) Cipro started on 11/30 was stopped on 12/08. clean and dry site saturating well on 7L O2 via trach collar No blood tinged secretions noted Bronchial washing grew Pseudomonas ID consult - Dr. Armstrong - help appreciated Working on getting portable suctioning for family to practice (3) Urinary tract infection Assessment & Plan: 01/21: Resolved no changes afebrile, continue monitoring for fever 01/18: afebrile overnight. WBC 9.5 yesterday. CBC to be done twice weekly, unless increased frequency is clinically indicated 01/14: Off IV Zosyn, continue baker catheter. f/u CBC and monitor VS 01/13: Stop IV Zosyn today. 01/12: Continue IV Zosyn at this time with plan to dc on 01/13 per ID 01/11: continue Zosyn 3.375gm IVPB Q6H (day 5) will discontinue on 01/13/1601/09: Will speak with Dr. Armstrong regarding length of IV antibiotic therapy. In the meantime, continue Zosyn 3.375gm IVPB Q6H. Continue monitoring CBC and for fevers. 01/07: Continue Zosyn 3.375gm IVPB Q6H. Monitor for fevers, Monitor CBC 01/06: urine culture positive for proteus mirabilis (sensitive to tobramycin, zosyn, amikacin, gentamicin). baker catheter to be re-inserted. Switch to Zosyn 3.375gm IVPB Q6H per Dr. Armstrong. 01/05: f/u urine culture sensitivities. Continue Primaxin 500mg IVPB Q8H as per Dr. Armstrong. 01/04: Urine culture + for gram negative rods. spoke with Dr. Armstrong. switched rocephin to primaxin 500mg IVPB Q8H [place] catheter ordered to be used with skin prep to keep it on 01/03: urinalysis had 4+ protein, positive nitrates, 3+ leukocyte esterase. Rocephin 1gm IVPB daily started. Continue [place] catheter. Ditropan 5mg PEG TID for leakage around catheter Urology consult - Dr. Oropeza - help appreciated ID on board - Dr. Armstrong - help appreciated (4) CAD (coronary artery disease) Assessment & Plan: 01/21: No acute changes, continue to monitor patient on tele. Cardiac stents on 06/13/15. Continue Lisinopril 5mg PO daily Continue Plavix 75mg PO daily Continue ASA 325mg PO daily-currently held due to recent trach bleeding (5) Seizures Assessment & Plan: 01/21: No active seizure, continue dilantin 100mg through peg tube TID Continue dilantin 100mg PEG TID (6) Bed sore Assessment & Plan: 01/21: Resolved, continue to monitor patient twice a week. : sacral ulcer to be evaluated minimum twice per week. 01/19: Sacral ulcer healed, Stage 0 01/15: Sacral ulcer improving considerably, Stage I (one) ulcer observed, non- open continue wound care, sensicare, and medihoney sacral ulcer. Stage II 0.5cm x 1.5cm Continue wound care, sensicare and medihoney. Continue repositioning of patient q2H. dolphin mattress. Heel air boots. (7) Prophylactic measure Assessment & Plan: 01/21: Continue Lovenox, Pepcid, and SCDs. Lovenox 40 SC daily Pepcid 20 mg PO BID SCDs Original Note: <Joel Lin - Last Filed: 01/22/16 21:36> Subjective - Date & Time of Evaluation Date of Evaluation: 01/22/16 Time of Evaluation: 09:40 - Subjective Subjective: Patient seen in room and evaluated with medical attending Dr. Rodrigues. Patient still has non purposeful movement, eyes open spontaneously, he does not follow voice commands. Objective - Vital Signs/Intake and Output Vital Signs (last 24 hours): Temp Pulse Resp BP Pulse Ox 98.4 F 90 20 149/85 97 01/22/16 05:10 01/22/16 05:10 01/22/16 05:10 01/22/16 05:10 01/22/16 05:10 Intake and Output: 01/22/16 01/22/16 06:59 18:59 Intake Total 700 Output Total 450 Balance 250 - Medications Medications: Current Medications Aspirin (Aspirin) 325 mg PO DAILY [facility] Last Admin: 11/23/15 09:42 Dose: 325 mg Clopidogrel Bisulfate (Plavix) 75 mg PO DAILY [facility] Last Admin: 01/21/16 10:27 Dose: 75 mg Enoxaparin Sodium (Lovenox) 40 mg SC DAILY [facility] Last Admin: 01/21/16 10:28 Dose: 40 mg Lisinopril (Zestril) 5 mg PO DAILY [facility] Last Admin: 01/21/16 10:27 Dose: 5 mg Oxybutynin Chloride (Ditropan Tab) 5 mg PO TID [facility] Last Admin: 01/21/16 18:53 Dose: 5 mg Phenytoin (Dilantin) 100 mg PEG TID [facility] Last Admin: 01/21/16 18:53 Dose: 100 mg Polyethylene Glycol (Miralax) 17 gm PEG BID [facility] Last Admin: 08/21/15 11:26 Dose: Not Given - Labs Labs: 01/21/16 06:44 01/21/16 06:44 PT 10.6 SECONDS (9.7-12.2) 11/24/15 14:10 INR 1.0 11/24/15 14:10 APTT 25 SECONDS (21-34) 11/24/15 14:10 - Constitutional Appears: Chronically Ill - Head Exam Head Exam: ATRAUMATIC, NORMAL INSPECTION, NORMOCEPHALIC - Eye Exam Eye Exam: Normal appearance, PERRL - ENT Exam ENT Exam: Mucous Membranes Moist - Neck Exam Neck Exam: Normal Inspection Additional comments: Trach is in place, no bloody discharge, or signs of infection. - Respiratory Exam Respiratory Exam: Clear to Ausculation Bilateral. absent: Rales, Rhonchi, Wheezes - Cardiovascular Exam Cardiovascular Exam: REGULAR RHYTHM, RRR. absent: Gallop, Rubs - GI/Abdominal Exam GI & Abdominal Exam: Soft, Normal Bowel Sounds Additional comments: peg tub in place, no signs of infection. - Extremities Exam Extremities Exam: absent: Pedal Edema Additional comments: pressure ulcers on heel is heeling well. - Neurological Exam Neurological Exam: CN II-XII Intact - Skin Skin Exam: Diaphoretic, Normal Color, Warm Assessment and Plan (1) Anoxic encephalopathy Assessment & Plan: Patient is on trach, no discharge from trach. Will need to educate family on Trach tube management. Patient has a baker in place, he has good urine output. Peg tube in place, will continue with tube feeding. Status: Acute (2) CAD (coronary artery disease) Assessment & Plan: Continue Plavix, Aspirin. Status: Acute (3) STEMI (ST elevation myocardial infarction) Status: Acute (4) Seizures Assessment & Plan: Continue Dilantin, monitor patient on tele. Status: Acute (5) Prophylactic measure Assessment & Plan: Continue Lovenox. Status: Acute <Rashel Rodrigues - Last Filed: 01/23/16 08:47> Objective - Vital Signs/Intake and Output Vital Signs (last 24 hours): Temp Pulse Resp BP Pulse Ox 97.9 F 87 20 124/80 99 01/22/16 14:00 01/22/16 14:00 01/22/16 14:00 01/22/16 14:00 01/22/16 14:00 Intake and Output: 01/22/16 01/22/16 06:59 18:59 Intake Total 700 Output Total 450 Balance 250 - Medications Medications: Current Medications Aspirin (Aspirin) 325 mg PO DAILY [facility] Last Admin: 11/23/15 09:42 Dose: 325 mg Clopidogrel Bisulfate (Plavix) 75 mg PO DAILY [facility] Last Admin: 01/22/16 10:13 Dose: 75 mg Enoxaparin Sodium (Lovenox) 40 mg SC DAILY [facility] Last Admin: 01/22/16 10:12 Dose: 40 mg Lisinopril (Zestril) 5 mg PO DAILY [facility] Last Admin: 01/22/16 10:13 Dose: 5 mg Oxybutynin Chloride (Ditropan Tab) 5 mg PO TID [facility] Last Admin: 01/22/16 13:37 Dose: 5 mg Phenytoin (Dilantin) 100 mg PEG TID [facility] Last Admin: 01/22/16 13:37 Dose: 100 mg Polyethylene Glycol (Miralax) 17 gm PEG BID [facility] Last Admin: 08/21/15 11:26 Dose: Not Given - Labs Labs: 01/21/16 06:44 01/21/16 06:44 PT 10.6 SECONDS (9.7-12.2) 11/24/15 14:10 INR 1.0 11/24/15 14:10 APTT 25 SECONDS (21-34) 11/24/15 14:10 Attending/Attestation - Attestation I have personally seen and examined this patient.: Yes I have fully participated in the care of the patient.: Yes I have reviewed all pertinent clinical information, including history, physical exam and plan: Yes Notes (Text): 01/22/16 17:15 Patient was seen and examined during the round with the resident. No new events. Patient has been tolerating PEG tube feeding, tolerating tracheostomy with good oxygenation. His travel has been healed Continue supportive management
[2016-01-22] MEDS: Enoxaparin 40 mg Syringe SC SCH (10:12)
[2016-01-22] MEDS: Phenytoin 100 mg/4 ml Oral Susp UD PEG SCH ×3 (10:13→17:30)
--- NOTE | 2016-01-23 09:01 | CP.PCM.PN ---
<Rashel Rodrigues - Last Filed: 01/23/16 15:40> Objective - Vital Signs/Intake and Output Vital Signs (last 24 hours): Temp Pulse Resp BP Pulse Ox 98.6 F 94 H 20 122/74 100 01/23/16 14:00 01/23/16 14:00 01/23/16 14:00 01/23/16 14:00 01/23/16 14:00 Intake and Output: 01/23/16 01/23/16 06:59 18:59 Intake Total 1900 Output Total 2825 450 Balance -925 -450 - Medications Medications: Current Medications Aspirin (Aspirin) 325 mg PO DAILY [facility] Last Admin: 11/23/15 09:42 Dose: 325 mg Clopidogrel Bisulfate (Plavix) 75 mg PO DAILY [facility] Last Admin: 01/23/16 09:24 Dose: 75 mg Enoxaparin Sodium (Lovenox) 40 mg SC DAILY [facility] Last Admin: 01/23/16 09:24 Dose: 40 mg Lisinopril (Zestril) 5 mg PO DAILY [facility] Last Admin: 01/23/16 09:24 Dose: 5 mg Oxybutynin Chloride (Ditropan Tab) 5 mg PO TID [facility] Last Admin: 01/23/16 14:45 Dose: 5 mg Phenytoin (Dilantin) 100 mg PEG TID [facility] Last Admin: 01/23/16 14:44 Dose: 100 mg Polyethylene Glycol (Miralax) 17 gm PEG BID [facility] Last Admin: 08/21/15 11:26 Dose: Not Given - Labs Labs: 01/21/16 06:44 01/21/16 06:44 PT 10.6 SECONDS (9.7-12.2) 11/24/15 14:10 INR 1.0 11/24/15 14:10 APTT 25 SECONDS (21-34) 11/24/15 14:10 Attending/Attestation - Attestation I have personally seen and examined this patient.: Yes I have fully participated in the care of the patient.: Yes I have reviewed all pertinent clinical information, including history, physical exam and plan: Yes Notes (Text): 01/23/16 15:40 Patient was seen and examined during the round with the resident. pt has no new events, patient is tolerating tube feeding. Patient secretion become thicker than before and we will increase his free water bolus to 300 meals every 6 hour and several every 8 which is currently getting. We will monitor his fluid status closely monitor his vital signs closely. Continue supportive care Patient mental status remained the same <RileyJoel Michelle - Last Filed: 01/23/16 18:56> Subjective - Date & Time of Evaluation Date of Evaluation: 01/23/16 Time of Evaluation: 10:00 - Subjective Subjective: Patient seen in room. Patient still opens eyes spontaneously, no purposeful movement. No acute events overnight per nursing staff. Objective - Vital Signs/Intake and Output Vital Signs (last 24 hours): Temp Pulse Resp BP Pulse Ox 98.4 F 89 20 127/80 99 01/23/16 05:56 01/23/16 05:56 01/23/16 05:56 01/23/16 05:56 01/23/16 05:56 Intake and Output: 01/23/16 01/23/16 06:59 18:59 Intake Total 1900 Output Total 2825 Balance -925 - Medications Medications: Current Medications Aspirin (Aspirin) 325 mg PO DAILY [facility] Last Admin: 11/23/15 09:42 Dose: 325 mg Clopidogrel Bisulfate (Plavix) 75 mg PO DAILY [facility] Last Admin: 01/22/16 10:13 Dose: 75 mg Enoxaparin Sodium (Lovenox) 40 mg SC DAILY [facility] Last Admin: 01/22/16 10:12 Dose: 40 mg Lisinopril (Zestril) 5 mg PO DAILY [facility] Last Admin: 01/22/16 10:13 Dose: 5 mg Oxybutynin Chloride (Ditropan Tab) 5 mg PO TID [facility] Last Admin: 01/22/16 17:30 Dose: 5 mg Phenytoin (Dilantin) 100 mg PEG TID [facility] Last Admin: 01/22/16 17:30 Dose: 100 mg Polyethylene Glycol (Miralax) 17 gm PEG BID [facility] Last Admin: 08/21/15 11:26 Dose: Not Given - Labs Labs: 01/21/16 06:44 01/21/16 06:44 PT 10.6 SECONDS (9.7-12.2) 11/24/15 14:10 INR 1.0 11/24/15 14:10 APTT 25 SECONDS (21-34) 11/24/15 14:10 - Constitutional Appears: Chronically Ill - Head Exam Head Exam: ATRAUMATIC, NORMAL INSPECTION, NORMOCEPHALIC - Eye Exam Eye Exam: Normal appearance, PERRL Pupil Exam: NORMAL ACCOMODATION - ENT Exam ENT Exam: Normal Exam - Neck Exam Additional comments: Trac in place with thick white secretions from suction. - Respiratory Exam Respiratory Exam: Clear to Ausculation Bilateral. absent: Rhonchi, Wheezes - Cardiovascular Exam Cardiovascular Exam: REGULAR RHYTHM, RRR, +S1, +S2. absent: Gallop, Rubs - GI/Abdominal Exam GI & Abdominal Exam: Soft, Normal Bowel Sounds Additional comments: peg tube in place, still functional. - Extremities Exam Extremities Exam: Normal Inspection Assessment and Plan - Assessment and Plan (Free Text) Assessment: 1) Anoxic encephalopathy Assessment & Plan: 01/22: NO acute changes in mental satus, peg tube in place and operational, thick white secretion from trach tube. 01/21: No acute change in mental status, peg tube operational no signs of blockage or infection(bolus during day and 50cc/hr at night. No acute change in mental status. PEG tube operational, tube feedings running at 50cc/hr at night and bolus feeds during the day 12/28: PEG tube placed at bedside by Dr. Chan. Abdominal X-ray showed PEG tube in position with contrast entering appropriately. PEG tube approved for use. GCS 8 [id number] patient with trach in place. Pending placement training family in how to take care of patient (2) Respiratory failure Assessment & Plan: 01/22: No acute changes, trach collar in place at same level of 6L oxygen, thick white secretions noted. 01/21: No interval change, trach collar in place 6L O2 still, no secretions. no interval change. trach collar at 6L O2. No secretions noted this morning. Trach collar in place. Sputum culture 12/06 + pseudomonas: probably colonization. afebrile. normal white count. CXR without infiltrates. No antibiotics for now per Dr. Armstrong tracheostomy with tube change by Dr. Chan on 11/27/15 CXR 12/08--> Tracheostomy tube appears deviated to the left which may be related to patient positioning. Clinical correlation as this does not project over the midline trachea. Bibasilar atelectasis. Mild stable nodularity at the right lung base. (see full report) Cipro started on 11/30 was stopped on 12/08. clean and dry site saturating well on 7L O2 via trach collar No blood tinged secretions noted Bronchial washing grew Pseudomonas ID consult - Dr. Armstrong - help appreciated Working on getting portable suctioning for family to practice (3) Urinary tract infection Assessment & Plan: 01/22: Resolved no acute changes. 01/21: Resolved no changes afebrile, continue monitoring for fever 01/18: afebrile overnight. WBC 9.5 yesterday. CBC to be done twice weekly, unless increased frequency is clinically indicated 01/14: Off IV Zosyn, continue baker catheter. f/u CBC and monitor VS 01/13: Stop IV Zosyn today. 01/12: Continue IV Zosyn at this time with plan to dc on 01/13 per ID 01/11: continue Zosyn 3.375gm IVPB Q6H (day 5) will discontinue on 01/13/1601/09: Will speak with Dr. Armstrong regarding length of IV antibiotic therapy. In the meantime, continue Zosyn 3.375gm IVPB Q6H. Continue monitoring CBC and for fevers. 01/07: Continue Zosyn 3.375gm IVPB Q6H. Monitor for fevers, Monitor CBC 01/06: urine culture positive for proteus mirabilis (sensitive to tobramycin, zosyn, amikacin, gentamicin). baker catheter to be re-inserted. Switch to Zosyn 3.375gm IVPB Q6H per Dr. Armstrong. 01/05: f/u urine culture sensitivities. Continue Primaxin 500mg IVPB Q8H as per Dr. Armstrong. 01/04: Urine culture + for gram negative rods. spoke with Dr. Armstrong. switched rocephin to primaxin 500mg IVPB Q8H [place] catheter ordered to be used with skin prep to keep it on 01/03: urinalysis had 4+ protein, positive nitrates, 3+ leukocyte esterase. Rocephin 1gm IVPB daily started. Continue [place] catheter. Ditropan 5mg PEG TID for leakage around catheter Urology consult - Dr. Oropeza - help appreciated ID on board - Dr. Armstrong - help appreciated (4) CAD (coronary artery disease) Assessment & Plan: 01/22: No acute changes, monitor on tele. 01/21: No acute changes, continue to monitor patient on tele. Cardiac stents on 06/13/15. Continue Lisinopril 5mg PO daily Continue Plavix 75mg PO daily Continue ASA 325mg PO daily-currently held due to recent trach bleeding (5) Seizures Assessment & Plan: 01/22: No acute changes, continue dilantin 100mg thorugh peg tube tid. 01/21: No active seizure, continue dilantin 100mg through peg tube TID Continue dilantin 100mg PEG TID (6) Bed sore Assessment & Plan: 01/22: Monitor twice a week. 01/21: Resolved, continue to monitor patient twice a week. : sacral ulcer to be evaluated minimum twice per week. 01/19: Sacral ulcer healed, Stage 0 01/15: Sacral ulcer improving considerably, Stage I (one) ulcer observed, non- open continue wound care, sensicare, and medihoney sacral ulcer. Stage II 0.5cm x 1.5cm Continue wound care, sensicare and medihoney. Continue repositioning of patient q2H. dolphin mattress. Heel air boots. (7) Prophylactic measure Assessment & Plan: 01/22: Continue Lovenox, pepcid, and SCDs. 01/21: Continue Lovenox, Pepcid, and SCDs. Lovenox 40 SC daily Pepcid 20 mg PO BID SCDs
[2016-01-23] MEDS: Enoxaparin 40 mg Syringe SC SCH (09:24)
[2016-01-23] MEDS: Phenytoin 100 mg/4 ml Oral Susp UD PEG SCH ×3 (09:24→18:04)
[2016-01-24 08:25] LABS: BASO # 0.1 K/uL (0.0-0.2); BASO % 0.7 % (0.0-2.0); EOS % 10.8 % (0.0-4.0); HEMOGLOBIN 12.8 g/dL (12.0-18.0); LYMPH % 11.2 % (20.0-40.0); MEAN CELL VOLUME 93.7 fL (80.0-94.0); MEAN CORPUSCULAR HEMOGLOBIN 31.5 pg (27.0-31.0); MEAN CORPUSCULAR HGB CONC 33.6 g/dL (33.0-37.0); MEAN PLATELET VOLUME 8.6 fL (7.2-11.7); MONO # 0.9 K/uL (0.0-0.8); MONO % 9.8 % (0.0-10.0); NEUT # 6.1 K/uL (1.8-7.0); NEUT % 67.5 % (50.0-75.0); RBC 4.06 Mil/uL (4.40-5.90)
[2016-01-24 08:38] LABS: ALBUMIN 3.8 g/dL (3.5-5.0)
[2016-01-24 08:41] LABS: AST/SGOT 33 U/L (17-59); GFR NON-AFRICAN AMERICAN > 60
[2016-01-24 08:42] LABS: ALT/SGPT 55 U/L (21-72); BLOOD UREA NITROGEN 20 mg/dL (9-20); CALCIUM 9.3 mg/dL (8.4-10.2)
--- NOTE | 2016-01-24 09:23 | CP.PCM.PN ---
<Rashel Rodrigues - Last Filed: 01/24/16 16:16> Objective - Vital Signs/Intake and Output Vital Signs (last 24 hours): Temp Pulse Resp BP Pulse Ox 98.4 F 91 H 20 151/95 H 100 01/24/16 14:04 01/24/16 14:04 01/24/16 14:04 01/24/16 14:04 01/24/16 14:04 Intake and Output: 01/24/16 01/24/16 06:59 18:59 Intake Total 2330 Output Total 800 1000 Balance -800 1330 - Medications Medications: Current Medications Aspirin (Aspirin) 325 mg PO DAILY [facility] Last Admin: 11/23/15 09:42 Dose: 325 mg Clopidogrel Bisulfate (Plavix) 75 mg PO DAILY [facility] Last Admin: 01/24/16 10:57 Dose: 75 mg Enoxaparin Sodium (Lovenox) 40 mg SC DAILY [facility] Last Admin: 01/24/16 10:57 Dose: 40 mg Lisinopril (Zestril) 5 mg PO DAILY [facility] Last Admin: 01/24/16 10:57 Dose: 5 mg Oxybutynin Chloride (Ditropan Tab) 5 mg PO TID [facility] Last Admin: 01/24/16 14:51 Dose: 5 mg Phenytoin (Dilantin) 100 mg PEG TID [facility] Last Admin: 01/24/16 14:51 Dose: 100 mg Polyethylene Glycol (Miralax) 17 gm PEG BID [facility] Last Admin: 08/21/15 11:26 Dose: Not Given - Labs Labs: 01/24/16 07:48 01/24/16 07:48 PT 10.6 SECONDS (9.7-12.2) 11/24/15 14:10 INR 1.0 11/24/15 14:10 APTT 25 SECONDS (21-34) 11/24/15 14:10 Attending/Attestation - Attestation I have personally seen and examined this patient.: Yes I have fully participated in the care of the patient.: Yes I have reviewed all pertinent clinical information, including history, physical exam and plan: Yes Notes (Text): 01/24/16 16:17 Patient was seen and examined during the round with the resident. No new events, patient has been tolerating tube feeding, no respiratory distress : Continue current supportive management Daily wound care for the sacral wound PEG area clean no bleeding no infection <Joel Lin H - Last Filed: 01/24/16 18:58> Subjective - Date & Time of Evaluation Date of Evaluation: 01/24/16 Time of Evaluation: 10:00 - Subjective Subjective: Patient seen and evaluated in room. Patient has some eye movement and moves his arms. Unable to obtain history. Objective - Vital Signs/Intake and Output Vital Signs (last 24 hours): Temp Pulse Resp BP Pulse Ox 98.6 F 84 18 127/83 98 01/24/16 08:57 01/24/16 08:57 01/24/16 08:57 01/24/16 08:57 01/24/16 08:57 Intake and Output: 01/24/16 01/24/16 06:59 18:59 Intake Total 1050 Output Total 800 Balance -800 1050 - Medications Medications: Current Medications Aspirin (Aspirin) 325 mg PO DAILY [facility] Last Admin: 11/23/15 09:42 Dose: 325 mg Clopidogrel Bisulfate (Plavix) 75 mg PO DAILY [facility] Last Admin: 01/23/16 09:24 Dose: 75 mg Enoxaparin Sodium (Lovenox) 40 mg SC DAILY [facility] Last Admin: 01/23/16 09:24 Dose: 40 mg Lisinopril (Zestril) 5 mg PO DAILY [facility] Last Admin: 01/23/16 09:24 Dose: 5 mg Oxybutynin Chloride (Ditropan Tab) 5 mg PO TID [facility] Last Admin: 01/23/16 18:04 Dose: 5 mg Phenytoin (Dilantin) 100 mg PEG TID [facility] Last Admin: 01/23/16 18:04 Dose: 100 mg Polyethylene Glycol (Miralax) 17 gm PEG BID [facility] Last Admin: 08/21/15 11:26 Dose: Not Given - Labs Labs: 01/24/16 07:48 01/24/16 07:48 PT 10.6 SECONDS (9.7-12.2) 11/24/15 14:10 INR 1.0 11/24/15 14:10 APTT 25 SECONDS (21-34) 11/24/15 14:10 - Constitutional Appears: Chronically Ill - Head Exam Head Exam: ATRAUMATIC, NORMAL INSPECTION, NORMOCEPHALIC - Eye Exam Eye Exam: Normal appearance, PERRL Pupil Exam: NORMAL ACCOMODATION - ENT Exam ENT Exam: Mucous Membranes Moist - Neck Exam Additional comments: Tech in place, some white secretions, not as much as yesterday. - Respiratory Exam Respiratory Exam: Clear to Ausculation Bilateral. absent: Rhonchi, Wheezes - Cardiovascular Exam Cardiovascular Exam: REGULAR RHYTHM, RRR, +S1, +S2. absent: Gallop, Rubs - GI/Abdominal Exam GI & Abdominal Exam: Normal Bowel Sounds Additional comments: Peg tube in place, operational, no signs of infection. - Extremities Exam Extremities Exam: Normal Inspection - Back Exam Back Exam: NORMAL INSPECTION - Neurological Exam Neurological Exam: Alert - Psychiatric Exam Psychiatric exam: Normal Affect, Normal Mood - Skin Skin Exam: Dry, Normal Color, Warm Assessment and Plan - Assessment and Plan (Free Text) Assessment: 1) Anoxic encephalopathy Assessment & Plan: 01/23: No acute changes in mental status. 2: NO acute changes in mental satus, peg tube in place and operational, thick white secretion from trach tube. 01/21: No acute change in mental status, peg tube operational no signs of blockage or infection(bolus during day and 50cc/hr at night. No acute change in mental status. PEG tube operational, tube feedings running at 50cc/hr at night and bolus feeds during the day 12/28: PEG tube placed at bedside by Dr. Chan. Abdominal X-ray showed PEG tube in position with contrast entering appropriately. PEG tube approved for use. GCS 8 [id number] patient with trach in place. Pending placement training family in how to take care of patient (2) Respiratory failure Assessment & Plan: 01/23: Trach collar in place with same oxygen level of 6L, white secretions noted. 01/22: No acute changes, trach collar in place at same level of 6L oxygen, thick white secretions noted. 3: No interval change, trach collar in place 6L O2 still, no secretions. no interval change. trach collar at 6L O2. No secretions noted this morning. Trach collar in place. Sputum culture 12/06 + pseudomonas: probably colonization. afebrile. normal white count. CXR without infiltrates. No antibiotics for now per Dr. Armstrong tracheostomy with tube change by Dr. Chan on 11/27/15 CXR 12/08--> Tracheostomy tube appears deviated to the left which may be related to patient positioning. Clinical correlation as this does not project over the midline trachea. Bibasilar atelectasis. Mild stable nodularity at the right lung base. (see full report) Cipro started on 11/30 was stopped on 12/08. clean and dry site saturating well on 7L O2 via trach collar No blood tinged secretions noted Bronchial washing grew Pseudomonas ID consult - Dr. Armstrong - help appreciated Working on getting portable suctioning for family to practice (3) Urinary tract infection Assessment & Plan: 01/23: Resolved, Baker in place, urine is clear color. 01/22: Resolved no acute changes. 01/21: Resolved no changes afebrile, continue monitoring for fever 01/18: afebrile overnight. WBC 9.5 yesterday. CBC to be done twice weekly, unless increased frequency is clinically indicated 01/14: Off IV Zosyn, continue baker catheter. f/u CBC and monitor VS 01/13: Stop IV Zosyn today. 01/12: Continue IV Zosyn at this time with plan to dc on 01/13 per ID 01/11: continue Zosyn 3.375gm IVPB Q6H (day 5) will discontinue on 01/13/1601/09: Will speak with Dr. Armstrong regarding length of IV antibiotic therapy. In the meantime, continue Zosyn 3.375gm IVPB Q6H. Continue monitoring CBC and for fevers. 01/07: Continue Zosyn 3.375gm IVPB Q6H. Monitor for fevers, Monitor CBC 01/06: urine culture positive for proteus mirabilis (sensitive to tobramycin, zosyn, amikacin, gentamicin). baker catheter to be re-inserted. Switch to Zosyn 3.375gm IVPB Q6H per Dr. Armstrong. 01/05: f/u urine culture sensitivities. Continue Primaxin 500mg IVPB Q8H as per Dr. Armstrong. 01/04: Urine culture + for gram negative rods. spoke with Dr. Armstrong. switched rocephin to primaxin 500mg IVPB Q8H [place] catheter ordered to be used with skin prep to keep it on 01/03: urinalysis had 4+ protein, positive nitrates, 3+ leukocyte esterase. Rocephin 1gm IVPB daily started. Continue [place] catheter. Ditropan 5mg PEG TID for leakage around catheter Urology consult - Dr. Oropeza - help appreciated ID on board - Dr. Armstrong - help appreciated (4) CAD (coronary artery disease) Assessment & Plan: 01/22: No acute changes, monitor on tele. 01/21: No acute changes, continue to monitor patient on tele. Cardiac stents on 06/13/15. Continue Lisinopril 5mg PO daily Continue Plavix 75mg PO daily Continue ASA 325mg PO daily-currently held due to recent trach bleeding (5) Seizures Assessment & Plan: 01/22: No acute changes, continue dilantin 100mg thorugh peg tube tid. 01/21: No active seizure, continue dilantin 100mg through peg tube TID Continue dilantin 100mg PEG TID (6) Bed sore Assessment & Plan: 01/22: Monitor twice a week. 01/21: Resolved, continue to monitor patient twice a week. : sacral ulcer to be evaluated minimum twice per week. 01/19: Sacral ulcer healed, Stage 0 01/15: Sacral ulcer improving considerably, Stage I (one) ulcer observed, non- open continue wound care, sensicare, and medihoney sacral ulcer. Stage II 0.5cm x 1.5cm Continue wound care, sensicare and medihoney. Continue repositioning of patient q2H. dolphin mattress. Heel air boots. (7) Prophylactic measure Assessment & Plan: 01/22: Continue Lovenox, pepcid, and SCDs. 01/21: Continue Lovenox, Pepcid, and SCDs. Lovenox 40 SC daily Pepcid 20 mg PO BID SCDs
[2016-01-24] MEDS: Phenytoin 100 mg/4 ml Oral Susp UD PEG SCH ×3 (10:57→17:32)
[2016-01-24] MEDS: Enoxaparin 40 mg Syringe SC SCH (10:57)
[2016-01-25] MEDS: Phenytoin 100 mg/4 ml Oral Susp UD PEG SCH ×3 (10:00→17:43)
[2016-01-25] MEDS: Enoxaparin 40 mg Syringe SC SCH (10:04)
--- NOTE | 2016-01-25 15:51 | CP.PCM.PN ---
<Rashel Rodrigues - Last Filed: 01/25/16 17:15> Objective - Vital Signs/Intake and Output Vital Signs (last 24 hours): Temp Pulse Resp BP Pulse Ox 98.0 F 81 20 130/86 100 01/25/16 14:14 01/25/16 14:14 01/25/16 14:14 01/25/16 14:14 01/25/16 14:14 Intake and Output: 01/25/16 01/25/16 06:59 18:59 Intake Total 1000 Output Total 1100 450 Balance -100 -450 - Medications Medications: Current Medications Aspirin (Aspirin) 325 mg PO DAILY [facility] Last Admin: 11/23/15 09:42 Dose: 325 mg Clopidogrel Bisulfate (Plavix) 75 mg PO DAILY [facility] Last Admin: 01/25/16 10:03 Dose: 75 mg Enoxaparin Sodium (Lovenox) 40 mg SC DAILY [facility] Last Admin: 01/25/16 10:04 Dose: 40 mg Lisinopril (Zestril) 5 mg PO DAILY [facility] Last Admin: 01/25/16 10:02 Dose: 5 mg Oxybutynin Chloride (Ditropan Tab) 5 mg PO TID [facility] Last Admin: 01/25/16 14:00 Dose: 5 mg Phenytoin (Dilantin) 100 mg PEG TID [facility] Last Admin: 01/25/16 14:00 Dose: 100 mg Polyethylene Glycol (Miralax) 17 gm PEG BID [facility] Last Admin: 08/21/15 11:26 Dose: Not Given - Labs Labs: 01/24/16 07:48 01/24/16 07:48 PT 10.6 SECONDS (9.7-12.2) 11/24/15 14:10 INR 1.0 11/24/15 14:10 APTT 25 SECONDS (21-34) 11/24/15 14:10 Attending/Attestation - Attestation I have personally seen and examined this patient.: Yes I have fully participated in the care of the patient.: Yes I have reviewed all pertinent clinical information, including history, physical exam and plan: Yes Notes (Text): 01/25/16 17:15 Patient was seen and examined during the round with the resident. pt has no new events, tolerating Peg tube feeding Pt has no resp distress, trach site was clean and no bleeding noted Peg site was also clean Baker's cath in place,,no leaking Sacral wd already healed. DC planning--- awaiting placement. Awaiting family decision. <Joel Lin - Last Filed: 01/25/16 18:56> Subjective - Date & Time of Evaluation Date of Evaluation: 01/25/16 Time of Evaluation: 12:00 - Subjective Subjective: Patient seen in room. No acute changes over night, no changes in mental status. Objective - Vital Signs/Intake and Output Vital Signs (last 24 hours): Temp Pulse Resp BP Pulse Ox 98.0 F 81 20 130/86 100 01/25/16 14:14 01/25/16 14:14 01/25/16 14:14 01/25/16 14:14 01/25/16 14:14 Intake and Output: 01/25/16 01/25/16 06:59 18:59 Intake Total 1000 Output Total 1100 450 Balance -100 -450 - Medications Medications: Current Medications Aspirin (Aspirin) 325 mg PO DAILY [facility] Last Admin: 11/23/15 09:42 Dose: 325 mg Clopidogrel Bisulfate (Plavix) 75 mg PO DAILY [facility] Last Admin: 01/25/16 10:03 Dose: 75 mg Enoxaparin Sodium (Lovenox) 40 mg SC DAILY [facility] Last Admin: 01/25/16 10:04 Dose: 40 mg Lisinopril (Zestril) 5 mg PO DAILY [facility] Last Admin: 01/25/16 10:02 Dose: 5 mg Oxybutynin Chloride (Ditropan Tab) 5 mg PO TID [facility] Last Admin: 01/25/16 14:00 Dose: 5 mg Phenytoin (Dilantin) 100 mg PEG TID [facility] Last Admin: 01/25/16 14:00 Dose: 100 mg Polyethylene Glycol (Miralax) 17 gm PEG BID [facility] Last Admin: 08/21/15 11:26 Dose: Not Given - Labs Labs: 01/24/16 07:48 01/24/16 07:48 PT 10.6 SECONDS (9.7-12.2) 11/24/15 14:10 INR 1.0 11/24/15 14:10 APTT 25 SECONDS (21-34) 11/24/15 14:10 - Constitutional Appears: Non-toxic, No Acute Distress - Head Exam Head Exam: ATRAUMATIC, NORMAL INSPECTION, NORMOCEPHALIC - Eye Exam Eye Exam: Normal appearance, PERRL Pupil Exam: NORMAL ACCOMODATION - ENT Exam ENT Exam: Mucous Membranes Moist - Respiratory Exam Respiratory Exam: Clear to Ausculation Bilateral. absent: Rhonchi, Wheezes - Cardiovascular Exam Cardiovascular Exam: REGULAR RHYTHM, RRR, +S1, +S2. absent: Gallop, Rubs - GI/Abdominal Exam GI & Abdominal Exam: Soft, Normal Bowel Sounds - Extremities Exam Extremities Exam: Normal Inspection. absent: Pedal Edema - Back Exam Back Exam: NORMAL INSPECTION - Neurological Exam Neurological Exam: Alert - Skin Skin Exam: Diaphoretic, Normal Color, Pallor Assessment and Plan - Assessment and Plan (Free Text) Assessment: 1) Anoxic encephalopathy Assessment & Plan: 3: no acute changes, pet tube in place it is operational. 33: No acute changes in mental status. 3/2: NO acute changes in mental satus, peg tube in place and operational, thick white secretion from trach tube. 3/: No acute change in mental status, peg tube operational no signs of blockage or infection(bolus during day and 50cc/hr at night. No acute change in mental status. PEG tube operational, tube feedings running at 50cc/hr at night and bolus feeds during the day 12/28: PEG tube placed at bedside by Dr. Chan. Abdominal X-ray showed PEG tube in position with contrast entering appropriately. PEG tube approved for use. GCS 8 [id number] patient with trach in place. Pending placement training family in how to take care of patient (2) Respiratory failure Assessment & Plan: 3/4: No acute changes, tranch collar in place. Still using free water flushes at 300cc q6h, white secretions still noted. 3/3: Trach collar in place with same oxygen level of 6L, white secretions noted. 3/2: No acute changes, trach collar in place at same level of 6L oxygen, thick white secretions noted. 3/1: No interval change, trach collar in place 6L O2 still, no secretions. no interval change. trach collar at 6L O2. No secretions noted this morning. Trach collar in place. Sputum culture 12/06 + pseudomonas: probably colonization. afebrile. normal white count. CXR without infiltrates. No antibiotics for now per Dr. Armstrong tracheostomy with tube change by Dr. Chan on 11/27/15 CXR 12/08--> Tracheostomy tube appears deviated to the left which may be related to patient positioning. Clinical correlation as this does not project over the midline trachea. Bibasilar atelectasis. Mild stable nodularity at the right lung base. (see full report) Cipro started on 11/30 was stopped on 12/08. clean and dry site saturating well on 7L O2 via trach collar No blood tinged secretions noted Bronchial washing grew Pseudomonas ID consult - Dr. Armstrong - help appreciated Working on getting portable suctioning for family to practice (3) Urinary tract infection Assessment & Plan: 01/24: Resolved, Baker in place, urine is a more dark yellow color. 01/23: Resolved, Baker in place, urine is clear color. 01/22: Resolved no acute changes. 01/21: Resolved no changes afebrile, continue monitoring for fever 01/18: afebrile overnight. WBC 9.5 yesterday. CBC to be done twice weekly, unless increased frequency is clinically indicated 01/14: Off IV Zosyn, continue baker catheter. f/u CBC and monitor VS 01/13: Stop IV Zosyn today. 01/12: Continue IV Zosyn at this time with plan to dc on 01/13 per ID 01/11: continue Zosyn 3.375gm IVPB Q6H (day 5) will discontinue on 01/13/1601/09: Will speak with Dr. Armstrong regarding length of IV antibiotic therapy. In the meantime, continue Zosyn 3.375gm IVPB Q6H. Continue monitoring CBC and for fevers. 01/07: Continue Zosyn 3.375gm IVPB Q6H. Monitor for fevers, Monitor CBC 01/06: urine culture positive for proteus mirabilis (sensitive to tobramycin, zosyn, amikacin, gentamicin). baker catheter to be re-inserted. Switch to Zosyn 3.375gm IVPB Q6H per Dr. Armstrong. 01/05: f/u urine culture sensitivities. Continue Primaxin 500mg IVPB Q8H as per Dr. Armstrong. 01/04: Urine culture + for gram negative rods. spoke with Dr. Armstrong. switched rocephin to primaxin 500mg IVPB Q8H [place] catheter ordered to be used with skin prep to keep it on 01/03: urinalysis had 4+ protein, positive nitrates, 3+ leukocyte esterase. Rocephin 1gm IVPB daily started. Continue [place] catheter. Ditropan 5mg PEG TID for leakage around catheter Urology consult - Dr. Oropeza - help appreciated ID on board - Dr. Armstrong - help appreciated (4) CAD (coronary artery disease) Assessment & Plan: 32: No acute changes, monitor on tele. 01/21: No acute changes, continue to monitor patient on tele. Cardiac stents on 06/13/15. Continue Lisinopril 5mg PO daily Continue Plavix 75mg PO daily Continue ASA 325mg PO daily-currently held due to recent trach bleeding (5) Seizures Assessment & Plan: 01/24: No acute events, no active siezure, continue dilantin 100mg tid through peg tube. 01/22: No acute changes, continue dilantin 100mg thorugh peg tube tid. 01/21: No active seizure, continue dilantin 100mg through peg tube TID Continue dilantin 100mg PEG TID (6) Bed sore Assessment & Plan: 01/24: No change, monitor twice a week 01/22: Monitor twice a week. 01/21: Resolved, continue to monitor patient twice a week. : sacral ulcer to be evaluated minimum twice per week. 01/19: Sacral ulcer healed, Stage 0 01/15: Sacral ulcer improving considerably, Stage I (one) ulcer observed, non- open continue wound care, sensicare, and medihoney sacral ulcer. Stage II 0.5cm x 1.5cm Continue wound care, sensicare and medihoney. Continue repositioning of patient q2H. dolphin mattress. Heel air boots. (7) Prophylactic measure Assessment & Plan: 01/22: Continue Lovenox, pepcid, and SCDs. 01/21: Continue Lovenox, Pepcid, and SCDs. Lovenox 40 SC daily Pepcid 20 mg PO BID [facility]
--- NOTE | 2016-01-26 08:38 | CP.PCM.PN ---
<Joel Lin H - Last Filed: 01/26/16 08:34> Subjective - Date & Time of Evaluation Date of Evaluation: 01/26/16 Time of Evaluation: 08:30 - Subjective Subjective: Patient was seen in room. Patient has no acute changes overnight. No change in mental status. Objective - Vital Signs/Intake and Output Vital Signs (last 24 hours): Temp Pulse Resp BP Pulse Ox 98.1 F 85 20 130/83 99 01/26/16 05:30 01/26/16 05:30 01/26/16 05:30 01/26/16 05:30 01/26/16 05:30 Intake and Output: 01/26/16 01/26/16 06:59 18:59 Intake Total 1000 Output Total 650 Balance 350 - Medications Medications: Current Medications Aspirin (Aspirin) 325 mg PO DAILY [facility] Last Admin: 11/23/15 09:42 Dose: 325 mg Clopidogrel Bisulfate (Plavix) 75 mg PO DAILY [facility] Last Admin: 01/25/16 10:03 Dose: 75 mg Enoxaparin Sodium (Lovenox) 40 mg SC DAILY [facility] Last Admin: 01/25/16 10:04 Dose: 40 mg Lisinopril (Zestril) 5 mg PO DAILY [facility] Last Admin: 01/25/16 10:02 Dose: 5 mg Oxybutynin Chloride (Ditropan Tab) 5 mg PO TID [facility] Last Admin: 01/25/16 17:44 Dose: 5 mg Phenytoin (Dilantin) 100 mg PEG TID [facility] Last Admin: 01/25/16 17:43 Dose: 100 mg Polyethylene Glycol (Miralax) 17 gm PEG BID [facility] Last Admin: 08/21/15 11:26 Dose: Not Given - Labs Labs: 01/24/16 07:48 01/24/16 07:48 PT 10.6 SECONDS (9.7-12.2) 11/24/15 14:10 INR 1.0 11/24/15 14:10 APTT 25 SECONDS (21-34) 11/24/15 14:10 - Constitutional Appears: Chronically Ill - Head Exam Head Exam: ATRAUMATIC, NORMAL INSPECTION, NORMOCEPHALIC - Eye Exam Eye Exam: Normal appearance, PERRL Pupil Exam: NORMAL ACCOMODATION - ENT Exam ENT Exam: Normal Exam - Neck Exam Neck Exam: Normal Inspection - Respiratory Exam Respiratory Exam: Clear to Ausculation Bilateral. absent: Rales, Rhonchi, Wheezes - Cardiovascular Exam Cardiovascular Exam: REGULAR RHYTHM, RRR, +S1, +S2. absent: Gallop, Rubs - GI/Abdominal Exam GI & Abdominal Exam: Soft, Normal Bowel Sounds. absent: Tenderness - Extremities Exam Extremities Exam: Normal Inspection - Back Exam Back Exam: NORMAL INSPECTION. absent: CVA tenderness (L), CVA tenderness (R) - Neurological Exam Neurological Exam: Normal Gait - Psychiatric Exam Psychiatric exam: Normal Affect, Normal Mood - Skin Skin Exam: Normal Color, Warm Assessment and Plan - Assessment and Plan (Free Text) Assessment: Assessment: 1) Anoxic encephalopathy Assessment & Plan: 01/25: No acute changes, peg tube in place, operational, running still at 50 cc/ hr at night with a bolus feed during the day. 3/: no acute changes, pet tube in place it is operational. 3: No acute changes in mental status. 3/2: NO acute changes in mental satus, peg tube in place and operational, thick white secretion from trach tube. 3/: No acute change in mental status, peg tube operational no signs of blockage or infection(bolus during day and 50cc/hr at night. No acute change in mental status. PEG tube operational, tube feedings running at 50cc/hr at night and bolus feeds during the day 2: PEG tube placed at bedside by Dr. Chan. Abdominal X-ray showed PEG tube in position with contrast entering appropriately. PEG tube approved for use. GCS 8 [id number] patient with trach in place. Pending placement training family in how to take care of patient (2) Respiratory failure Assessment & Plan: 01/25: Trach collar in place, white secretions still noted, continue free water flushes at 300 cc/hr. 3/4: No acute changes, tranch collar in place. Still using free water flushes at 300cc q6h, white secretions still noted. 33: Trach collar in place with same oxygen level of 6L, white secretions noted. 3/2: No acute changes, trach collar in place at same level of 6L oxygen, thick white secretions noted. 3/1: No interval change, trach collar in place 6L O2 still, no secretions. no interval change. trach collar at 6L O2. No secretions noted this morning. Trach collar in place. Sputum culture 12/06 + pseudomonas: probably colonization. afebrile. normal white count. CXR without infiltrates. No antibiotics for now per Dr. Armstrong tracheostomy with tube change by Dr. Chan on 11/27/15 CXR 12/08--> Tracheostomy tube appears deviated to the left which may be related to patient positioning. Clinical correlation as this does not project over the midline trachea. Bibasilar atelectasis. Mild stable nodularity at the right lung base. (see full report) Cipro started on 11/30 was stopped on 12/08. clean and dry site saturating well on 7L O2 via trach collar No blood tinged secretions noted Bronchial washing grew Pseudomonas ID consult - Dr. Armstrong - help appreciated Working on getting portable suctioning for family to practice (3) Urinary tract infection Assessment & Plan: 01/25: Resolved, Baker in place, urine is clear color this morning. 01/24: Resolved, Baker in place, urine is a more dark yellow color. 01/23: Resolved, Baker in place, urine is clear color. 01/22: Resolved no acute changes. 01/21: Resolved no changes afebrile, continue monitoring for fever 01/18: afebrile overnight. WBC 9.5 yesterday. CBC to be done twice weekly, unless increased frequency is clinically indicated 01/14: Off IV Zosyn, continue baker catheter. f/u CBC and monitor VS 01/13: Stop IV Zosyn today. 01/12: Continue IV Zosyn at this time with plan to dc on 01/13 per ID 01/11: continue Zosyn 3.375gm IVPB Q6H (day 5) will discontinue on 01/13/1601/09: Will speak with Dr. Armstrong regarding length of IV antibiotic therapy. In the meantime, continue Zosyn 3.375gm IVPB Q6H. Continue monitoring CBC and for fevers. 01/07: Continue Zosyn 3.375gm IVPB Q6H. Monitor for fevers, Monitor CBC 01/06: urine culture positive for proteus mirabilis (sensitive to tobramycin, zosyn, amikacin, gentamicin). baker catheter to be re-inserted. Switch to Zosyn 3.375gm IVPB Q6H per Dr. Armstrong. 01/05: f/u urine culture sensitivities. Continue Primaxin 500mg IVPB Q8H as per Dr. Armstrong. 01/04: Urine culture + for gram negative rods. spoke with Dr. Armstrong. switched rocephin to primaxin 500mg IVPB Q8H [place] catheter ordered to be used with skin prep to keep it on 01/03: urinalysis had 4+ protein, positive nitrates, 3+ leukocyte esterase. Rocephin 1gm IVPB daily started. Continue [place] catheter. Ditropan 5mg PEG TID for leakage around catheter Urology consult - Dr. Oropeza - help appreciated ID on board - Dr. Armstrong - help appreciated (4) CAD (coronary artery disease) Assessment & Plan: 01/22: No acute changes, monitor on tele. 01/21: No acute changes, continue to monitor patient on tele. Cardiac stents on 06/13/15. Continue Lisinopril 5mg PO daily Continue Plavix 75mg PO daily Continue ASA 325mg PO daily-currently held due to recent trach bleeding (5) Seizures Assessment & Plan: 01/25: no active seizures, continue dilantin 100mg tid through peg tube, continue to monitor patient closely. 3: No acute events, no active siezure, continue dilantin 100mg tid through peg tube. 32: No acute changes, continue dilantin 100mg thorugh peg tube tid. 01/21: No active seizure, continue dilantin 100mg through peg tube TID Continue dilantin 100mg PEG TID (6) Bed sore Assessment & Plan: 01/25: No change, will continue to check twice a week. 3: No change, monitor twice a week 32: Monitor twice a week. 01/21: Resolved, continue to monitor patient twice a week. : sacral ulcer to be evaluated minimum twice per week. 01/19: Sacral ulcer healed, Stage 0 01/15: Sacral ulcer improving considerably, Stage I (one) ulcer observed, non- open continue wound care, sensicare, and medihoney sacral ulcer. Stage II 0.5cm x 1.5cm Continue wound care, sensicare and medihoney. Continue repositioning of patient q2H. delores oswaldss. Heel air boots. (7) Prophylactic measure Assessment & Plan: 01/22: Continue Lovenox, pepcid, and SCDs. 01/21: Continue Lovenox, Pepcid, and SCDs. Lovenox 40 SC daily Pepcid 20 mg PO BID [facility] <Rashel Rodrigues - Last Filed: 01/26/16 13:54> Objective - Vital Signs/Intake and Output Vital Signs (last 24 hours): Temp Pulse Resp BP Pulse Ox 98.1 F 85 20 130/83 99 01/26/16 05:30 01/26/16 05:30 01/26/16 05:30 01/26/16 05:30 01/26/16 05:30 Intake and Output: 01/26/16 01/26/16 06:59 18:59 Intake Total 1000 Output Total 650 Balance 350 - Medications Medications: Current Medications Aspirin (Aspirin) 325 mg PO DAILY [facility] Last Admin: 11/23/15 09:42 Dose: 325 mg Clopidogrel Bisulfate (Plavix) 75 mg PO DAILY [facility] Last Admin: 01/26/16 10:17 Dose: 75 mg Enoxaparin Sodium (Lovenox) 40 mg SC DAILY [facility] Last Admin: 01/26/16 10:16 Dose: 40 mg Lisinopril (Zestril) 5 mg PO DAILY [facility] Last Admin: 01/26/16 10:16 Dose: 5 mg Oxybutynin Chloride (Ditropan Tab) 5 mg PO TID [facility] Last Admin: 01/26/16 10:16 Dose: 5 mg Phenytoin (Dilantin) 100 mg PEG TID [facility] Last Admin: 01/26/16 10:17 Dose: 100 mg Polyethylene Glycol (Miralax) 17 gm PEG BID [facility] Last Admin: 08/21/15 11:26 Dose: Not Given - Labs Labs: 01/24/16 07:48 01/24/16 07:48 PT 10.6 SECONDS (9.7-12.2) 11/24/15 14:10 INR 1.0 11/24/15 14:10 APTT 25 SECONDS (21-34) 11/24/15 14:10 Attending/Attestation - Attestation I have personally seen and examined this patient.: Yes I have fully participated in the care of the patient.: Yes I have reviewed all pertinent clinical information, including history, physical exam and plan: Yes Notes (Text): 01/26/16 12:18 Patient was seen and examined during the round with the resident. pt has no new events tolerating TF No bleeding from Trach site, and Peg site is clean No Sacral de ulcer ... healed Baker's cath clean, cont supportive mx DC Planning... awaiting placement
[2016-01-26] MEDS: Enoxaparin 40 mg Syringe SC SCH (10:16)
[2016-01-26] MEDS: Phenytoin 100 mg/4 ml Oral Susp UD PEG SCH ×3 (10:17→17:01)
[2016-01-27] MEDS: Phenytoin 100 mg/4 ml Oral Susp UD PEG SCH ×3 (09:12→17:13)
--- NOTE | 2016-01-27 12:15 | CP.PCM.PN ---
<Joel Lin - Last Filed: 01/27/16 17:23> Subjective - Date & Time of Evaluation Date of Evaluation: 01/27/16 Time of Evaluation: 10:00 - Subjective Subjective: Patient seen in room. He kept on staring at the [facility]. No change in mental status. Objective - Vital Signs/Intake and Output Vital Signs (last 24 hours): Temp Pulse Resp BP Pulse Ox 97.5 F L 89 18 127/82 98 01/27/16 06:00 01/27/16 06:00 01/27/16 06:00 01/27/16 06:00 01/27/16 06:00 Intake and Output: 01/27/16 01/27/16 06:59 18:59 Intake Total 700 Output Total 200 Balance 500 - Medications Medications: Current Medications Aspirin (Aspirin) 325 mg PO DAILY [facility] Last Admin: 11/23/15 09:42 Dose: 325 mg Clopidogrel Bisulfate (Plavix) 75 mg PO DAILY [facility] Last Admin: 01/27/16 09:12 Dose: 75 mg Lisinopril (Zestril) 5 mg PO DAILY [facility] Last Admin: 01/27/16 09:13 Dose: 5 mg Oxybutynin Chloride (Ditropan Tab) 5 mg PO TID [facility] Last Admin: 01/27/16 09:12 Dose: 5 mg Phenytoin (Dilantin) 100 mg PEG TID [facility] Last Admin: 01/27/16 09:12 Dose: 100 mg Polyethylene Glycol (Miralax) 17 gm PEG BID [facility] Last Admin: 08/21/15 11:26 Dose: Not Given - Labs Labs: 01/24/16 07:48 01/24/16 07:48 PT 10.6 SECONDS (9.7-12.2) 11/24/15 14:10 INR 1.0 11/24/15 14:10 APTT 25 SECONDS (21-34) 11/24/15 14:10 - Constitutional Appears: Chronically Ill - Head Exam Head Exam: ATRAUMATIC, NORMAL INSPECTION, NORMOCEPHALIC - Eye Exam Eye Exam: Normal appearance, PERRL Pupil Exam: NORMAL ACCOMODATION - ENT Exam ENT Exam: Normal Exam - Neck Exam Neck Exam: Normal Inspection - Respiratory Exam Respiratory Exam: Clear to Ausculation Bilateral. absent: Rales, Rhonchi, Wheezes - Cardiovascular Exam Cardiovascular Exam: REGULAR RHYTHM, RRR, +S1, +S2. absent: Gallop, Rubs - GI/Abdominal Exam GI & Abdominal Exam: Soft, Normal Bowel Sounds. absent: Tenderness - Extremities Exam Extremities Exam: Normal Inspection - Neurological Exam Additional comments: eyes open spontaneously. - Skin Skin Exam: Diaphoretic, Normal Color, Warm Assessment and Plan - Assessment and Plan (Free Text) Assessment: Assessment: 1) Anoxic encephalopathy Assessment & Plan: 01/26: No acute changes, peg tube in place, operational, running still at 50 cc/ hr at night with a bolus feed during the day 01/25: No acute changes, peg tube in place, operational, running still at 50 cc/ hr at night with a bolus feed during the day. 01/24: no acute changes, pet tube in place it is operational. 01/23: No acute changes in mental status. 01/22: NO acute changes in mental satus, peg tube in place and operational, thick white secretion from trach tube. 3: No acute change in mental status, peg tube operational no signs of blockage or infection(bolus during day and 50cc/hr at night. No acute change in mental status. PEG tube operational, tube feedings running at 50cc/hr at night and bolus feeds during the day 12/28: PEG tube placed at bedside by Dr. Chan. Abdominal X-ray showed PEG tube in position with contrast entering appropriately. PEG tube approved for use. GCS 8 [id number] patient with trach in place. Pending placement training family in how to take care of patient (2) Respiratory failure Assessment & Plan: 01/26: Trach collar in place, white secretions still noted, continue free water flushes at 300 cc/hr. 01/25: Trach collar in place, white secretions still noted, continue free water flushes at 300 cc/hr. 01/24: No acute changes, tranch collar in place. Still using free water flushes at 300cc q6h, white secretions still noted. 01/23: Trach collar in place with same oxygen level of 6L, white secretions noted. 3/2: No acute changes, trach collar in place at same level of 6L oxygen, thick white secretions noted. 3/: No interval change, trach collar in place 6L O2 still, no secretions. no interval change. trach collar at 6L O2. No secretions noted this morning. Trach collar in place. Sputum culture 12/06 + pseudomonas: probably colonization. afebrile. normal white count. CXR without infiltrates. No antibiotics for now per Dr. Armstrong tracheostomy with tube change by Dr. Chan on 11/27/15 CXR 12/08--> Tracheostomy tube appears deviated to the left which may be related to patient positioning. Clinical correlation as this does not project over the midline trachea. Bibasilar atelectasis. Mild stable nodularity at the right lung base. (see full report) Cipro started on 11/30 was stopped on 12/08. clean and dry site saturating well on 7L O2 via trach collar No blood tinged secretions noted Bronchial washing grew Pseudomonas ID consult - Dr. Armstrong - help appreciated Working on getting portable suctioning for family to practice (3) Urinary tract infection Assessment & Plan: 01/26: Resolved, Baker in place, 01/25: Resolved, Baker in place, urine is clear color this morning. 01/24: Resolved, Baker in place, urine is a more dark yellow color. 01/23: Resolved, Baker in place, urine is clear color. 01/22: Resolved no acute changes. 01/21: Resolved no changes afebrile, continue monitoring for fever 01/18: afebrile overnight. WBC 9.5 yesterday. CBC to be done twice weekly, unless increased frequency is clinically indicated 01/14: Off IV Zosyn, continue baker catheter. f/u CBC and monitor VS 01/13: Stop IV Zosyn today. 01/12: Continue IV Zosyn at this time with plan to dc on 01/13 per ID 01/11: continue Zosyn 3.375gm IVPB Q6H (day 5) will discontinue on 01/13/1601/09: Will speak with Dr. Armstrong regarding length of IV antibiotic therapy. In the meantime, continue Zosyn 3.375gm IVPB Q6H. Continue monitoring CBC and for fevers. 01/07: Continue Zosyn 3.375gm IVPB Q6H. Monitor for fevers, Monitor CBC 01/06: urine culture positive for proteus mirabilis (sensitive to tobramycin, zosyn, amikacin, gentamicin). baker catheter to be re-inserted. Switch to Zosyn 3.375gm IVPB Q6H per Dr. Armstrong. 01/05: f/u urine culture sensitivities. Continue Primaxin 500mg IVPB Q8H as per Dr. Armstrong. 01/04: Urine culture + for gram negative rods. spoke with Dr. Armstrong. switched rocephin to primaxin 500mg IVPB Q8H [place] catheter ordered to be used with skin prep to keep it on 01/03: urinalysis had 4+ protein, positive nitrates, 3+ leukocyte esterase. Rocephin 1gm IVPB daily started. Continue [place] catheter. Ditropan 5mg PEG TID for leakage around catheter Urology consult - Dr. Oropeza - help appreciated ID on board - Dr. Armstrong - help appreciated (4) CAD (coronary artery disease) Assessment & Plan: 01/26: No acute changes 3: No acute changes, monitor on tele. 01/21: No acute changes, continue to monitor patient on tele. Cardiac stents on 06/13/15. Continue Lisinopril 5mg PO daily Continue Plavix 75mg PO daily Continue ASA 325mg PO daily-currently held due to recent trach bleeding (5) Seizures Assessment & Plan: 01/26: No active siezures, continue dilantin 100mg tid through peg tube, monitor patient closely. 01/25: no active seizures, continue dilantin 100mg tid through peg tube, continue to monitor patient closely. 3: No acute events, no active siezure, continue dilantin 100mg tid through peg tube. 2: No acute changes, continue dilantin 100mg thorugh peg tube tid. 3: No active seizure, continue dilantin 100mg through peg tube TID Continue dilantin 100mg PEG TID (6) Bed sore Assessment & Plan: 01/26: No change, continue to monitor twice a week. 3: No change, will continue to check twice a week. 3/: No change, monitor twice a week 32: Monitor twice a week. 01/21: Resolved, continue to monitor patient twice a week. : sacral ulcer to be evaluated minimum twice per week. 01/19: Sacral ulcer healed, Stage 0 01/15: Sacral ulcer improving considerably, Stage I (one) ulcer observed, non- open continue wound care, sensicare, and medihoney sacral ulcer. Stage II 0.5cm x 1.5cm Continue wound care, sensicare and medihoney. Continue repositioning of patient q2H. dolphin mattress. Heel air boots. (7) Prophylactic measure Assessment & Plan: 01/22: Continue Lovenox, pepcid, and SCDs. 01/21: Continue Lovenox, Pepcid, and SCDs. Lovenox 40 SC daily Pepcid 20 mg PO BID [facility] <Rashel Rodrigues - Last Filed: 01/27/16 18:21> Objective - Vital Signs/Intake and Output Vital Signs (last 24 hours): Temp Pulse Resp BP Pulse Ox 98.3 F 87 20 129/85 99 01/27/16 13:40 01/27/16 13:40 01/27/16 13:40 01/27/16 13:40 01/27/16 13:40 Intake and Output: 01/27/16 01/27/16 06:59 18:59 Intake Total 700 Output Total 200 Balance 500 - Medications Medications: Current Medications Aspirin (Aspirin) 325 mg PO DAILY [facility] Last Admin: 11/23/15 09:42 Dose: 325 mg Clopidogrel Bisulfate (Plavix) 75 mg PO DAILY [facility] Last Admin: 01/27/16 09:12 Dose: 75 mg Lisinopril (Zestril) 5 mg PO DAILY [facility] Last Admin: 01/27/16 09:13 Dose: 5 mg Oxybutynin Chloride (Ditropan Tab) 5 mg PO TID [facility] Last Admin: 01/27/16 13:15 Dose: 5 mg Phenytoin (Dilantin) 100 mg PEG TID [facility] Last Admin: 01/27/16 13:12 Dose: 100 mg Polyethylene Glycol (Miralax) 17 gm PEG BID [facility] Last Admin: 08/21/15 11:26 Dose: Not Given - Labs Labs: 01/24/16 07:48 01/24/16 07:48 PT 10.6 SECONDS (9.7-12.2) 11/24/15 14:10 INR 1.0 11/24/15 14:10 APTT 25 SECONDS (21-34) 11/24/15 14:10 Attending/Attestation - Attestation I have personally seen and examined this patient.: Yes I have fully participated in the care of the patient.: Yes I have reviewed all pertinent clinical information, including history, physical exam and plan: Yes Notes (Text): 01/27/16 14:40 Patient was seen and examined during the round with the resident. pt has no new events, no fever, pt has been tolerating Peg tube feeding pt has no resp distress, trach tube has no bleeding, cont supportive mx.
[2016-01-28] MEDS: Phenytoin 100 mg/4 ml Oral Susp UD PEG SCH ×3 (09:43→17:29)
--- NOTE | 2016-01-28 10:53 | CP.PCM.PN ---
<RileyJoel Michelle - Last Filed: 01/28/16 11:02> Subjective - Date & Time of Evaluation Date of Evaluation: 01/28/16 Time of Evaluation: 09:00 - Subjective Subjective: Patient seen in room. Patient is asleep. Still opens eyes spontateously. No change in mental status. No acute events overnight. Objective - Vital Signs/Intake and Output Vital Signs (last 24 hours): Temp Pulse Resp BP Pulse Ox 98.7 F 87 20 146/81 98 01/28/16 05:41 01/28/16 05:41 01/28/16 05:41 01/28/16 05:41 01/28/16 05:41 Intake and Output: 01/28/16 01/28/16 06:59 18:59 Output Total 150 Balance -150 - Medications Medications: Current Medications Aspirin (Aspirin) 325 mg PO DAILY [facility] Last Admin: 11/23/15 09:42 Dose: 325 mg Clopidogrel Bisulfate (Plavix) 75 mg PO DAILY [facility] Last Admin: 01/28/16 09:43 Dose: 75 mg Lisinopril (Zestril) 5 mg PO DAILY [facility] Last Admin: 01/28/16 09:43 Dose: 5 mg Oxybutynin Chloride (Ditropan Tab) 5 mg PO TID [facility] Last Admin: 01/28/16 09:43 Dose: 5 mg Phenytoin (Dilantin) 100 mg PEG TID [facility] Last Admin: 01/28/16 09:43 Dose: 100 mg Polyethylene Glycol (Miralax) 17 gm PEG BID [facility] Last Admin: 08/21/15 11:26 Dose: Not Given - Labs Labs: 01/24/16 07:48 01/24/16 07:48 PT 10.6 SECONDS (9.7-12.2) 11/24/15 14:10 INR 1.0 11/24/15 14:10 APTT 25 SECONDS (21-34) 11/24/15 14:10 - Constitutional Appears: Chronically Ill - Head Exam Head Exam: ATRAUMATIC, NORMAL INSPECTION, NORMOCEPHALIC - Eye Exam Eye Exam: Normal appearance, PERRL Pupil Exam: NORMAL ACCOMODATION - ENT Exam ENT Exam: Normal Exam - Respiratory Exam Respiratory Exam: Clear to Ausculation Bilateral. absent: Rhonchi, Wheezes - Cardiovascular Exam Cardiovascular Exam: REGULAR RHYTHM, RRR, +S1, +S2. absent: Gallop, Rubs - GI/Abdominal Exam GI & Abdominal Exam: Soft, Normal Bowel Sounds. absent: Tenderness - Extremities Exam Extremities Exam: Normal Inspection - Back Exam Back Exam: NORMAL INSPECTION - Neurological Exam Neurological Exam: Alert - Psychiatric Exam Psychiatric exam: Normal Affect, Normal Mood - Skin Skin Exam: Dry, Normal Color, Warm Assessment and Plan - Assessment and Plan (Free Text) Assessment: Assessment: 1) Anoxic encephalopathy Assessment & Plan: 01/27: No acute changes, patient not in respiratory distress. 01/26: No acute changes, peg tube in place, operational, running still at 50 cc/ hr at night with a bolus feed during the day 01/25: No acute changes, peg tube in place, operational, running still at 50 cc/ hr at night with a bolus feed during the day. 01/24: no acute changes, pet tube in place it is operational. 01/23: No acute changes in mental status. 3/: NO acute changes in mental satus, peg tube in place and operational, thick white secretion from trach tube. 01/21: No acute change in mental status, peg tube operational no signs of blockage or infection(bolus during day and 50cc/hr at night. No acute change in mental status. PEG tube operational, tube feedings running at 50cc/hr at night and bolus feeds during the day 12/28: PEG tube placed at bedside by Dr. Chan. Abdominal X-ray showed PEG tube in position with contrast entering appropriately. PEG tube approved for use. GCS 8 [id number] patient with trach in place. Pending placement training family in how to take care of patient (2) Respiratory failure Assessment & Plan: 01/27: No respiratory distress, white secretions noted, continue free water flushes at 300 cc q8h. 01/26: Trach collar in place, white secretions still noted, continue free water flushes at 300 cc/hr. 01/25: Trach collar in place, white secretions still noted, continue free water flushes at 300 cc/hr. 3/: No acute changes, tranch collar in place. Still using free water flushes at 300cc q6h, white secretions still noted. 3: Trach collar in place with same oxygen level of 6L, white secretions noted. 3/2: No acute changes, trach collar in place at same level of 6L oxygen, thick white secretions noted. 01/21: No interval change, trach collar in place 6L O2 still, no secretions. no interval change. trach collar at 6L O2. No secretions noted this morning. Trach collar in place. Sputum culture 12/06 + pseudomonas: probably colonization. afebrile. normal white count. CXR without infiltrates. No antibiotics for now per Dr. Armstrong tracheostomy with tube change by Dr. Chan on 11/27/15 CXR 12/08--> Tracheostomy tube appears deviated to the left which may be related to patient positioning. Clinical correlation as this does not project over the midline trachea. Bibasilar atelectasis. Mild stable nodularity at the right lung base. (see full report) Cipro started on 11/30 was stopped on 12/08. clean and dry site saturating well on 7L O2 via trach collar No blood tinged secretions noted Bronchial washing grew Pseudomonas ID consult - Dr. Armstrong - help appreciated Working on getting portable suctioning for family to practice (3) Urinary tract infection Assessment & Plan: 01/27: Resolved, Baker in place, urine is clear. 01/26: Resolved, Baker in place, 01/25: Resolved, Baker in place, urine is clear color this morning. 3: Resolved, Baker in place, urine is a more dark yellow color. 01/23: Resolved, Baker in place, urine is clear color. 01/22: Resolved no acute changes. 01/21: Resolved no changes afebrile, continue monitoring for fever 01/18: afebrile overnight. WBC 9.5 yesterday. CBC to be done twice weekly, unless increased frequency is clinically indicated 01/14: Off IV Zosyn, continue baker catheter. f/u CBC and monitor VS 01/13: Stop IV Zosyn today. 01/12: Continue IV Zosyn at this time with plan to dc on 01/13 per ID 01/11: continue Zosyn 3.375gm IVPB Q6H (day 5) will discontinue on 01/13/1601/09: Will speak with Dr. Armstrong regarding length of IV antibiotic therapy. In the meantime, continue Zosyn 3.375gm IVPB Q6H. Continue monitoring CBC and for fevers. 01/07: Continue Zosyn 3.375gm IVPB Q6H. Monitor for fevers, Monitor CBC 01/06: urine culture positive for proteus mirabilis (sensitive to tobramycin, zosyn, amikacin, gentamicin). baker catheter to be re-inserted. Switch to Zosyn 3.375gm IVPB Q6H per Dr. Armstrong. 01/05: f/u urine culture sensitivities. Continue Primaxin 500mg IVPB Q8H as per Dr. Armstrong. 01/04: Urine culture + for gram negative rods. spoke with Dr. Armstrong. switched rocephin to primaxin 500mg IVPB Q8H [place] catheter ordered to be used with skin prep to keep it on 01/03: urinalysis had 4+ protein, positive nitrates, 3+ leukocyte esterase. Rocephin 1gm IVPB daily started. Continue [place] catheter. Ditropan 5mg PEG TID for leakage around catheter Urology consult - Dr. Oropeza - help appreciated ID on board - Dr. Armstrong - help appreciated (4) CAD (coronary artery disease) Assessment & Plan: 01/26: No acute changes 3: No acute changes, monitor on tele. 01/21: No acute changes, continue to monitor patient on tele. Cardiac stents on 06/13/15. Continue Lisinopril 5mg PO daily Continue Plavix 75mg PO daily Continue ASA 325mg PO daily-currently held due to recent trach bleeding (5) Seizures Assessment & Plan: 01/27: No active siezures, continue dilantin 100mg tid through peg tube, continue to monitor patient. 01/26: No active siezures, continue dilantin 100mg tid through peg tube, monitor patient closely. 01/25: no active seizures, continue dilantin 100mg tid through peg tube, continue to monitor patient closely. 01/24: No acute events, no active siezure, continue dilantin 100mg tid through peg tube. 32: No acute changes, continue dilantin 100mg thorugh peg tube tid. 01/21: No active seizure, continue dilantin 100mg through peg tube TID Continue dilantin 100mg PEG TID (6) Bed sore Assessment & Plan: 01/27: No change, resolved, continue to monitor twice a week. 36: No change, continue to monitor twice a week. 3: No change, will continue to check twice a week. 3: No change, monitor twice a week 3/2: Monitor twice a week. 3/1: Resolved, continue to monitor patient twice a week. : sacral ulcer to be evaluated minimum twice per week. 01/19: Sacral ulcer healed, Stage 0 01/15: Sacral ulcer improving considerably, Stage I (one) ulcer observed, non- open continue wound care, sensicare, and medihoney sacral ulcer. Stage II 0.5cm x 1.5cm Continue wound care, sensicare and medihoney. Continue repositioning of patient q2H. dolphin mattress. Heel air boots. (7) Prophylactic measure Assessment & Plan: 01/27: Renewed Lovnoz, SCDs, pepcid. 01/22: Continue Lovenox, pepcid, and SCDs. 01/21: Continue Lovenox, Pepcid, and SCDs. Lovenox 40 SC daily Pepcid 20 mg PO BID SCDs <Rashel Rodrigues - Last Filed: 01/28/16 16:37> Objective - Vital Signs/Intake and Output Vital Signs (last 24 hours): Temp Pulse Resp BP Pulse Ox 98.1 F 87 20 131/88 98 01/28/16 11:05 01/28/16 11:05 01/28/16 11:05 01/28/16 11:05 01/28/16 11:05 Intake and Output: 01/28/16 01/28/16 06:59 18:59 Output Total 150 Balance -150 - Medications Medications: Current Medications Aspirin (Aspirin) 325 mg PO DAILY [facility] Last Admin: 11/23/15 09:42 Dose: 325 mg Clopidogrel Bisulfate (Plavix) 75 mg PO DAILY [facility] Last Admin: 01/28/16 09:43 Dose: 75 mg Enoxaparin Sodium (Lovenox) 40 mg SC DAILY [facility] Last Admin: 01/28/16 13:21 Dose: 40 mg Lisinopril (Zestril) 5 mg PO DAILY [facility] Last Admin: 01/28/16 09:43 Dose: 5 mg Oxybutynin Chloride (Ditropan Tab) 5 mg PO TID [facility] Last Admin: 01/28/16 13:20 Dose: 5 mg Phenytoin (Dilantin) 100 mg PEG TID [facility] Last Admin: 01/28/16 13:21 Dose: 100 mg Polyethylene Glycol (Miralax) 17 gm PEG BID [facility] Last Admin: 08/21/15 11:26 Dose: Not Given - Labs Labs: 01/24/16 07:48 01/24/16 07:48 PT 10.6 SECONDS (9.7-12.2) 11/24/15 14:10 INR 1.0 11/24/15 14:10 APTT 25 SECONDS (21-34) 11/24/15 14:10 Attending/Attestation - Attestation I have personally seen and examined this patient.: Yes I have fully participated in the care of the patient.: Yes I have reviewed all pertinent clinical information, including history, physical exam and plan: Yes Notes (Text): 01/28/16 16:35 Patient was seen and examined during the round with the resident. no new events no fever, tolerating PEg tube feeding, Pt has sacral decu ulcer healed, Trach site showed no bleeding. cont supportive mx
[2016-01-28] MEDS: Enoxaparin 40 mg Syringe SC SCH (13:21)
[2016-01-29] MEDS: Phenytoin 100 mg/4 ml Oral Susp UD PEG SCH ×3 (11:00→17:48)
[2016-01-29] MEDS: Enoxaparin 40 mg Syringe SC SCH (11:01)
[2016-01-29 14:41] LABS: ALBUMIN 3.7 g/dL (3.5-5.0)
[2016-01-29 14:44] LABS: GFR NON-AFRICAN AMERICAN > 60
[2016-01-29 14:45] LABS: ALB/GLOB RATIO 0.8 (1.0-2.1); ALT/SGPT 64 U/L (21-72); AST/SGOT 26 U/L (17-59); BLOOD UREA NITROGEN 31 mg/dL (9-20)
--- NOTE | 2016-01-29 15:18 | CP.PCM.PN ---
<RileyJoel H - Last Filed: 01/29/16 19:14> Subjective - Date & Time of Evaluation Date of Evaluation: 01/29/16 Time of Evaluation: 09:00 - Subjective Subjective: Patient seen in room. No acute events overnight according to the nurse. Objective - Vital Signs/Intake and Output Vital Signs (last 24 hours): Temp Pulse Resp BP Pulse Ox 98.5 F 99 H 20 106/71 99 01/29/16 15:06 01/29/16 15:06 01/29/16 15:06 01/29/16 15:06 01/29/16 15:06 Intake and Output: 01/29/16 01/29/16 06:59 18:59 Intake Total 1920 120 Output Total 900 Balance 1020 120 - Medications Medications: Current Medications Aspirin (Aspirin) 325 mg PO DAILY [facility] Last Admin: 11/23/15 09:42 Dose: 325 mg Clopidogrel Bisulfate (Plavix) 75 mg PO DAILY [facility] Last Admin: 01/29/16 11:00 Dose: 75 mg Enoxaparin Sodium (Lovenox) 40 mg SC DAILY [facility] Last Admin: 01/29/16 11:01 Dose: Not Given Lisinopril (Zestril) 5 mg PO DAILY [facility] Last Admin: 01/29/16 11:00 Dose: 5 mg Oxybutynin Chloride (Ditropan Tab) 5 mg PO TID [facility] Last Admin: 01/29/16 13:53 Dose: 5 mg Phenytoin (Dilantin) 100 mg PEG TID [facility] Last Admin: 01/29/16 13:53 Dose: 100 mg Polyethylene Glycol (Miralax) 17 gm PEG BID [facility] Last Admin: 08/21/15 11:26 Dose: Not Given - Labs Labs: 01/24/16 07:48 01/29/16 14:29 PT 10.6 SECONDS (9.7-12.2) 11/24/15 14:10 INR 1.0 11/24/15 14:10 APTT 25 SECONDS (21-34) 11/24/15 14:10 - Constitutional Appears: Chronically Ill - Head Exam Head Exam: ATRAUMATIC, NORMAL INSPECTION, NORMOCEPHALIC - Eye Exam Eye Exam: Normal appearance, PERRL Pupil Exam: NORMAL ACCOMODATION - ENT Exam ENT Exam: Normal Exam - Neck Exam Neck Exam: Normal Inspection Additional comments: Trach collar in place - Respiratory Exam Respiratory Exam: Clear to Ausculation Bilateral, NORMAL BREATHING PATTERN. absent: Rhonchi, Wheezes - Cardiovascular Exam Cardiovascular Exam: REGULAR RHYTHM, RRR, +S1, +S2. absent: Gallop, Rubs - GI/Abdominal Exam GI & Abdominal Exam: Soft, Normal Bowel Sounds. absent: Tenderness - Extremities Exam Extremities Exam: absent: Normal Inspection Additional comments: bruising around his left hip area that is echymosis looking. Will continue to monitor patient and followup cbc. - Skin Skin Exam: Diaphoretic, Normal Color, Warm Assessment and Plan - Assessment and Plan (Free Text) Plan: Assessment: 1) Anoxic encephalopathy Assessment & Plan: 01/28: No acute changes in mental status, 01/27: No acute changes, patient not in respiratory distress. 01/26: No acute changes, peg tube in place, operational, running still at 50 cc/ hr at night with a bolus feed during the day 3: No acute changes, peg tube in place, operational, running still at 50 cc/ hr at night with a bolus feed during the day. 3: no acute changes, pet tube in place it is operational. 3: No acute changes in mental status. 3/2: NO acute changes in mental satus, peg tube in place and operational, thick white secretion from trach tube. 3/: No acute change in mental status, peg tube operational no signs of blockage or infection(bolus during day and 50cc/hr at night. No acute change in mental status. PEG tube operational, tube feedings running at 50cc/hr at night and bolus feeds during the day 2: PEG tube placed at bedside by Dr. Chan. Abdominal X-ray showed PEG tube in position with contrast entering appropriately. PEG tube approved for use. GCS 8 [id number] patient with trach in place. Pending placement training family in how to take care of patient (2) Respiratory failure Assessment & Plan: 01/28: Trach collar in place, no respiratory distress, continue free water flushes 01/27: No respiratory distress, white secretions noted, continue free water flushes at 300 cc q8h. 01/26: Trach collar in place, white secretions still noted, continue free water flushes at 300 cc/hr. 01/25: Trach collar in place, white secretions still noted, continue free water flushes at 300 cc/hr. 3/: No acute changes, tranch collar in place. Still using free water flushes at 300cc q6h, white secretions still noted. 3: Trach collar in place with same oxygen level of 6L, white secretions noted. 3/: No acute changes, trach collar in place at same level of 6L oxygen, thick white secretions noted. 3: No interval change, trach collar in place 6L O2 still, no secretions. no interval change. trach collar at 6L O2. No secretions noted this morning. Trach collar in place. Sputum culture 12/06 + pseudomonas: probably colonization. afebrile. normal white count. CXR without infiltrates. No antibiotics for now per Dr. Armstrong tracheostomy with tube change by Dr. Chan on 11/27/15 CXR 12/08--> Tracheostomy tube appears deviated to the left which may be related to patient positioning. Clinical correlation as this does not project over the midline trachea. Bibasilar atelectasis. Mild stable nodularity at the right lung base. (see full report) Cipro started on 11/30 was stopped on 12/08. clean and dry site saturating well on 7L O2 via trach collar No blood tinged secretions noted Bronchial washing grew Pseudomonas ID consult - Dr. Armstrong - help appreciated Working on getting portable suctioning for family to practice (3) Urinary tract infection Assessment & Plan: 01/27: Resolved, Baker in place, urine is clear. 01/26: Resolved, Baker in place, 01/25: Resolved, Baker in place, urine is clear color this morning. 3: Resolved, Baker in place, urine is a more dark yellow color. 3: Resolved, Baker in place, urine is clear color. 3: Resolved no acute changes. 01/21: Resolved no changes afebrile, continue monitoring for fever 01/18: afebrile overnight. WBC 9.5 yesterday. CBC to be done twice weekly, unless increased frequency is clinically indicated 01/14: Off IV Zosyn, continue baker catheter. f/u CBC and monitor VS 01/13: Stop IV Zosyn today. 01/12: Continue IV Zosyn at this time with plan to dc on 01/13 per ID 01/11: continue Zosyn 3.375gm IVPB Q6H (day 5) will discontinue on 01/13/1601/09: Will speak with Dr. Armstrong regarding length of IV antibiotic therapy. In the meantime, continue Zosyn 3.375gm IVPB Q6H. Continue monitoring CBC and for fevers. 01/07: Continue Zosyn 3.375gm IVPB Q6H. Monitor for fevers, Monitor CBC 01/06: urine culture positive for proteus mirabilis (sensitive to tobramycin, zosyn, amikacin, gentamicin). baker catheter to be re-inserted. Switch to Zosyn 3.375gm IVPB Q6H per Dr. Armstrong. 01/05: f/u urine culture sensitivities. Continue Primaxin 500mg IVPB Q8H as per Dr. Armstrong. 01/04: Urine culture + for gram negative rods. spoke with Dr. Armstrong. switched rocephin to primaxin 500mg IVPB Q8H [place] catheter ordered to be used with skin prep to keep it on 01/03: urinalysis had 4+ protein, positive nitrates, 3+ leukocyte esterase. Rocephin 1gm IVPB daily started. Continue [place] catheter. Ditropan 5mg PEG TID for leakage around catheter Urology consult - Dr. Oropeza - help appreciated ID on board - Dr. Armstrong - help appreciated (4) CAD (coronary artery disease) Assessment & Plan: 01/26: No acute changes 3: No acute changes, monitor on tele. 01/21: No acute changes, continue to monitor patient on tele. Cardiac stents on 06/13/15. Continue Lisinopril 5mg PO daily Continue Plavix 75mg PO daily Continue ASA 325mg PO daily-currently held due to recent trach bleeding (5) Seizures Assessment & Plan: 01/27: No active siezures, continue dilantin 100mg tid through peg tube, continue to monitor patient. 01/26: No active siezures, continue dilantin 100mg tid through peg tube, monitor patient closely. 01/25: no active seizures, continue dilantin 100mg tid through peg tube, continue to monitor patient closely. 3: No acute events, no active siezure, continue dilantin 100mg tid through peg tube. 32: No acute changes, continue dilantin 100mg thorugh peg tube tid. 01/21: No active seizure, continue dilantin 100mg through peg tube TID Continue dilantin 100mg PEG TID (6) Bed sore Assessment & Plan: 01/27: Ecchymosis like bruising around his left hip and buttock area, will continue to monitor closely, monitor cbc closely as well. 01/27: No change, resolved, continue to monitor twice a week. 01/26: No change, continue to monitor twice a week. 01/25: No change, will continue to check twice a week. 01/24: No change, monitor twice a week 32: Monitor twice a week. 01/21: Resolved, continue to monitor patient twice a week. : sacral ulcer to be evaluated minimum twice per week. 01/19: Sacral ulcer healed, Stage 0 01/15: Sacral ulcer improving considerably, Stage I (one) ulcer observed, non- open continue wound care, sensicare, and medihoney sacral ulcer. Stage II 0.5cm x 1.5cm Continue wound care, sensicare and medihoney. Continue repositioning of patient q2H. dolphin mattress. Heel air boots. (7) Prophylactic measure Assessment & Plan: 01/27: Renewed Lovnoz, SCDs, pepcid. 01/22: Continue Lovenox, pepcid, and SCDs. 01/21: Continue Lovenox, Pepcid, and SCDs. Lovenox 40 SC daily Pepcid 20 mg PO BID [facility] <Rashel Rodrigues - Last Filed: 01/30/16 08:08> Objective - Vital Signs/Intake and Output Vital Signs (last 24 hours): Temp Pulse Resp BP Pulse Ox 98.5 F 99 H 20 106/71 99 01/29/16 15:06 01/29/16 15:06 01/29/16 15:06 01/29/16 15:06 01/29/16 15:06 Intake and Output: 01/29/16 01/29/16 06:59 18:59 Intake Total 1920 120 Output Total 900 Balance 1020 120 - Medications Medications: Current Medications Aspirin (Aspirin) 325 mg PO DAILY [facility] Last Admin: 11/23/15 09:42 Dose: 325 mg Clopidogrel Bisulfate (Plavix) 75 mg PO DAILY [facility] Last Admin: 01/29/16 11:00 Dose: 75 mg Enoxaparin Sodium (Lovenox) 40 mg SC DAILY [facility] Last Admin: 01/29/16 11:01 Dose: Not Given Lisinopril (Zestril) 5 mg PO DAILY [facility] Last Admin: 01/29/16 11:00 Dose: 5 mg Oxybutynin Chloride (Ditropan Tab) 5 mg PO TID [facility] Last Admin: 01/29/16 13:53 Dose: 5 mg Phenytoin (Dilantin) 100 mg PEG TID [facility] Last Admin: 01/29/16 13:53 Dose: 100 mg Polyethylene Glycol (Miralax) 17 gm PEG BID [facility] Last Admin: 08/21/15 11:26 Dose: Not Given - Labs Labs: 01/24/16 07:48 01/29/16 14:29 PT 10.6 SECONDS (9.7-12.2) 11/24/15 14:10 INR 1.0 11/24/15 14:10 APTT 25 SECONDS (21-34) 11/24/15 14:10 Attending/Attestation - Attestation I have personally seen and examined this patient.: Yes I have fully participated in the care of the patient.: Yes I have reviewed all pertinent clinical information, including history, physical exam and plan: Yes Notes (Text): 01/29/16 17:23 Patient was seen and examined during the round with the resident. no new events tolerating G T feeding No fever, No acute distress, Peg site clean and dry, Baker in place, No sacral decu ulcer
[2016-01-30] MEDS: Phenytoin 100 mg/4 ml Oral Susp UD PEG SCH ×3 (10:10→17:11)
[2016-01-30] MEDS: Enoxaparin 40 mg Syringe SC SCH (10:11)
--- NOTE | 2016-01-30 17:58 | CP.PCM.PN ---
<Merrick Heck - Last Filed: 01/30/16 17:56> Subjective - Date & Time of Evaluation Date of Evaluation: 01/30/16 Time of Evaluation: 10:00 - Subjective Subjective: Patient seen and examined at bedside with attending. Inspected PEG tube - intact. Patient at baseline, no change in mental status. Objective - Vital Signs/Intake and Output Vital Signs (last 24 hours): Temp Pulse Resp BP Pulse Ox 98.3 F 84 20 125/77 99 01/30/16 14:35 01/30/16 14:35 01/30/16 14:35 01/30/16 14:35 01/30/16 14:35 Intake and Output: 01/30/16 01/30/16 06:59 18:59 Intake Total 1000 Output Total 850 Balance 150 - Medications Medications: Current Medications Aspirin (Aspirin) 325 mg PO DAILY [facility] Last Admin: 11/23/15 09:42 Dose: 325 mg Clopidogrel Bisulfate (Plavix) 75 mg PO DAILY [facility] Last Admin: 01/30/16 10:11 Dose: 75 mg Enoxaparin Sodium (Lovenox) 40 mg SC DAILY [facility] Last Admin: 01/30/16 10:11 Dose: 40 mg Lisinopril (Zestril) 5 mg PO DAILY [facility] Last Admin: 01/30/16 10:11 Dose: 5 mg Oxybutynin Chloride (Ditropan Tab) 5 mg PO TID [facility] Last Admin: 01/30/16 17:11 Dose: 5 mg Phenytoin (Dilantin) 100 mg PEG TID [facility] Last Admin: 01/30/16 17:11 Dose: 100 mg Polyethylene Glycol (Miralax) 17 gm PEG BID [facility] Last Admin: 08/21/15 11:26 Dose: Not Given - Labs Labs: 01/24/16 07:48 01/29/16 14:29 PT 10.6 SECONDS (9.7-12.2) 11/24/15 14:10 INR 1.0 11/24/15 14:10 APTT 25 SECONDS (21-34) 11/24/15 14:10 - Constitutional Appears: Chronically Ill - Head Exam Head Exam: NORMAL INSPECTION - Eye Exam Eye Exam: PERRL Pupil Exam: Fixed - ENT Exam ENT Exam: Mucous Membranes Moist, Normal Oropharynx - Neck Exam Neck Exam: Normal Inspection. absent: Lymphadenopathy - Respiratory Exam Respiratory Exam: NORMAL BREATHING PATTERN Additional comments: on trach - Cardiovascular Exam Cardiovascular Exam: +S1, +S2 - GI/Abdominal Exam GI & Abdominal Exam: Soft, Normal Bowel Sounds - Neurological Exam Neurological Exam: absent: Alert, Awake, CN II-XII Intact, Oriented x3 - Skin Additional comments: chronic skin changes from being bed ridden Assessment and Plan - Assessment and Plan (Free Text) Assessment: 1) Anoxic encephalopathy Assessment & Plan: 01/29: no change, peg and trach in place 01/28: No acute changes in mental status, 01/27: No acute changes, patient not in respiratory distress. 01/26: No acute changes, peg tube in place, operational, running still at 50 cc/ hr at night with a bolus feed during the day 3: No acute changes, peg tube in place, operational, running still at 50 cc/ hr at night with a bolus feed during the day. 01/24: no acute changes, pet tube in place it is operational. 01/23: No acute changes in mental status. 01/22: NO acute changes in mental satus, peg tube in place and operational, thick white secretion from trach tube. 01/21: No acute change in mental status, peg tube operational no signs of blockage or infection(bolus during day and 50cc/hr at night. No acute change in mental status. PEG tube operational, tube feedings running at 50cc/hr at night and bolus feeds during the day 2: PEG tube placed at bedside by Dr. Chan. Abdominal X-ray showed PEG tube in position with contrast entering appropriately. PEG tube approved for use. GCS 8 [id number] patient with trach in place. Pending placement training family in how to take care of patient (2) Respiratory failure Assessment & Plan: 01/29: trach in place, no resp distress, 01/28: Trach collar in place, no respiratory distress, continue free water flushes 01/27: No respiratory distress, white secretions noted, continue free water flushes at 300 cc q8h. 01/26: Trach collar in place, white secretions still noted, continue free water flushes at 300 cc/hr. 01/25: Trach collar in place, white secretions still noted, continue free water flushes at 300 cc/hr. 3: No acute changes, tranch collar in place. Still using free water flushes at 300cc q6h, white secretions still noted. 3: Trach collar in place with same oxygen level of 6L, white secretions noted. 3/2: No acute changes, trach collar in place at same level of 6L oxygen, thick white secretions noted. 3/: No interval change, trach collar in place 6L O2 still, no secretions. no interval change. trach collar at 6L O2. No secretions noted this morning. Trach collar in place. Sputum culture 12/06 + pseudomonas: probably colonization. afebrile. normal white count. CXR without infiltrates. No antibiotics for now per Dr. Armstrong tracheostomy with tube change by Dr. Chan on 11/27/15 CXR 12/08--> Tracheostomy tube appears deviated to the left which may be related to patient positioning. Clinical correlation as this does not project over the midline trachea. Bibasilar atelectasis. Mild stable nodularity at the right lung base. (see full report) Cipro started on 11/30 was stopped on 12/08. clean and dry site saturating well on 7L O2 via trach collar No blood tinged secretions noted Bronchial washing grew Pseudomonas ID consult - Dr. Armstrong - help appreciated Working on getting portable suctioning for family to practice (3) Urinary tract infection Assessment & Plan: 01/29: baker in place 01/27: Resolved, Baker in place, urine is clear. 01/26: Resolved, Baker in place, 01/25: Resolved, Baker in place, urine is clear color this morning. 3: Resolved, Baker in place, urine is a more dark yellow color. 3: Resolved, Baker in place, urine is clear color. 3/2: Resolved no acute changes. 01/21: Resolved no changes afebrile, continue monitoring for fever 01/18: afebrile overnight. WBC 9.5 yesterday. CBC to be done twice weekly, unless increased frequency is clinically indicated 01/14: Off IV Zosyn, continue baker catheter. f/u CBC and monitor VS 01/13: Stop IV Zosyn today. 01/12: Continue IV Zosyn at this time with plan to dc on 01/13 per ID 01/11: continue Zosyn 3.375gm IVPB Q6H (day 5) will discontinue on 01/13/1601/09: Will speak with Dr. Armstrong regarding length of IV antibiotic therapy. In the meantime, continue Zosyn 3.375gm IVPB Q6H. Continue monitoring CBC and for fevers. 01/07: Continue Zosyn 3.375gm IVPB Q6H. Monitor for fevers, Monitor CBC 01/06: urine culture positive for proteus mirabilis (sensitive to tobramycin, zosyn, amikacin, gentamicin). baker catheter to be re-inserted. Switch to Zosyn 3.375gm IVPB Q6H per Dr. Armstrong. 01/05: f/u urine culture sensitivities. Continue Primaxin 500mg IVPB Q8H as per Dr. Armstrong. 01/04: Urine culture + for gram negative rods. spoke with Dr. Armstrong. switched rocephin to primaxin 500mg IVPB Q8H [place] catheter ordered to be used with skin prep to keep it on 01/03: urinalysis had 4+ protein, positive nitrates, 3+ leukocyte esterase. Rocephin 1gm IVPB daily started. Continue [place] catheter. Ditropan 5mg PEG TID for leakage around catheter Urology consult - Dr. Oropeza - help appreciated ID on board - Dr. Armstrong - help appreciated (4) CAD (coronary artery disease) Assessment & Plan: 01/26: No acute changes 01/22: No acute changes, monitor on tele. 01/21: No acute changes, continue to monitor patient on tele. Cardiac stents on 06/13/15. Continue Lisinopril 5mg PO daily Continue Plavix 75mg PO daily Continue ASA 325mg PO daily-currently held due to recent trach bleeding (5) Seizures Assessment & Plan: 01/29 no active seizures, no acute events overnight per nursing 01/27: No active siezures, continue dilantin 100mg tid through peg tube, continue to monitor patient. 01/26: No active siezures, continue dilantin 100mg tid through peg tube, monitor patient closely. 01/25: no active seizures, continue dilantin 100mg tid through peg tube, continue to monitor patient closely. 01/24: No acute events, no active siezure, continue dilantin 100mg tid through peg tube. 2: No acute changes, continue dilantin 100mg thorugh peg tube tid. 01/21: No active seizure, continue dilantin 100mg through peg tube TID Continue dilantin 100mg PEG TID (6) Bed sore Assessment & Plan: 01/27: Ecchymosis like bruising around his left hip and buttock area, will continue to monitor closely, monitor cbc closely as well. 01/27: No change, resolved, continue to monitor twice a week. 01/26: No change, continue to monitor twice a week. 01/25: No change, will continue to check twice a week. 3: No change, monitor twice a week 32: Monitor twice a week. 01/21: Resolved, continue to monitor patient twice a week. : sacral ulcer to be evaluated minimum twice per week. 01/19: Sacral ulcer healed, Stage 0 01/15: Sacral ulcer improving considerably, Stage I (one) ulcer observed, non- open continue wound care, sensicare, and medihoney sacral ulcer. Stage II 0.5cm x 1.5cm Continue wound care, sensicare and medihoney. Continue repositioning of patient q2H. dolphin mattress. Heel air boots. (7) Prophylactic measure Assessment & Plan: 01/27: Renewed Lovnoz, SCDs, pepcid. 01/22: Continue Lovenox, pepcid, and SCDs. 01/21: Continue Lovenox, Pepcid, and SCDs. Lovenox 40 SC daily Pepcid 20 mg PO BID SCDs <Rashel Rodrigues - Last Filed: 01/31/16 08:45> Objective - Vital Signs/Intake and Output Vital Signs (last 24 hours): Temp Pulse Resp BP Pulse Ox 97.4 F L 79 20 111/74 99 01/31/16 06:00 01/31/16 06:00 01/31/16 06:00 01/31/16 06:00 01/31/16 06:00 Intake and Output: 01/31/16 01/31/16 06:59 18:59 Intake Total 1275 Output Total 800 Balance 475 - Medications Medications: Current Medications Aspirin (Aspirin) 325 mg PO DAILY [facility] Last Admin: 11/23/15 09:42 Dose: 325 mg Clopidogrel Bisulfate (Plavix) 75 mg PO DAILY [facility] Last Admin: 01/30/16 10:11 Dose: 75 mg Enoxaparin Sodium (Lovenox) 40 mg SC DAILY [facility] Last Admin: 01/30/16 10:11 Dose: 40 mg Lisinopril (Zestril) 5 mg PO DAILY [facility] Last Admin: 01/30/16 10:11 Dose: 5 mg Oxybutynin Chloride (Ditropan Tab) 5 mg PO TID [facility] Last Admin: 01/30/16 17:11 Dose: 5 mg Phenytoin (Dilantin) 100 mg PEG TID [facility] Last Admin: 01/30/16 17:11 Dose: 100 mg Polyethylene Glycol (Miralax) 17 gm PEG BID [facility] Last Admin: 08/21/15 11:26 Dose: Not Given - Labs Labs: 01/31/16 07:26 01/31/16 07:26 PT 10.6 SECONDS (9.7-12.2) 11/24/15 14:10 INR 1.0 11/24/15 14:10 APTT 25 SECONDS (21-34) 11/24/15 14:10 Attending/Attestation - Attestation I have personally seen and examined this patient.: Yes I have fully participated in the care of the patient.: Yes I have reviewed all pertinent clinical information, including history, physical exam and plan: Yes Notes (Text): 01/31/16 08:44 (Late entry for 01/30/16) Patient was seen and examined during the round with the resident. Pt has no new events, cont supportive mx Peg site clean and dry
[2016-01-31 08:07] LABS: BASO % 0.2 % (0.0-2.0); EOS # 0.7 K/uL (0.0-0.7); EOS % 7.6 % (0.0-4.0); HEMOGLOBIN 12.2 g/dL (12.0-18.0); LYMPH # 1.6 K/uL (1.0-4.3); LYMPH % 16.7 % (20.0-40.0); MEAN CORPUSCULAR HGB CONC 33.4 g/dL (33.0-37.0); MEAN PLATELET VOLUME 8.7 fL (7.2-11.7); MONO % 10.2 % (0.0-10.0); NEUT # 6.2 K/uL (1.8-7.0); NEUT % 65.3 % (50.0-75.0); RBC 3.92 Mil/uL (4.40-5.90); WHITE BLOOD COUNT 9.6 K/uL (4.8-10.8)
[2016-01-31 08:41] LABS: ALBUMIN 3.4 g/dL (3.5-5.0)
[2016-01-31 08:44] LABS: AST/SGOT 20 U/L (17-59); BLOOD UREA NITROGEN 20 mg/dL (9-20); GFR NON-AFRICAN AMERICAN > 60
[2016-01-31 08:45] LABS: ALT/SGPT 47 U/L (21-72); CALCIUM 8.5 mg/dL (8.4-10.2)
[2016-01-31 08:50] LABS: ALB/GLOB RATIO 0.9 (1.0-2.1)
--- NOTE | 2016-01-31 09:35 | CP.PCM.PN ---
Subjective - Date & Time of Evaluation Date of Evaluation: 01/31/16 Time of Evaluation: 14:00 - Subjective Subjective: Pt has no new events, pt has no fever, no acute distress. tolerating tube feeding Objective - Vital Signs/Intake and Output Vital Signs (last 24 hours): Temp Pulse Resp BP Pulse Ox 97.4 F L 79 20 111/74 99 01/31/16 06:00 01/31/16 06:00 01/31/16 06:00 01/31/16 06:00 01/31/16 06:00 Intake and Output: 01/31/16 01/31/16 06:59 18:59 Intake Total 1275 Output Total 800 Balance 475 - Medications Medications: Current Medications Aspirin (Aspirin) 325 mg PO DAILY [facility] Last Admin: 11/23/15 09:42 Dose: 325 mg Clopidogrel Bisulfate (Plavix) 75 mg PO DAILY [facility] Last Admin: 01/30/16 10:11 Dose: 75 mg Enoxaparin Sodium (Lovenox) 40 mg SC DAILY [facility] Last Admin: 01/30/16 10:11 Dose: 40 mg Lisinopril (Zestril) 5 mg PO DAILY [facility] Last Admin: 01/30/16 10:11 Dose: 5 mg Oxybutynin Chloride (Ditropan Tab) 5 mg PO TID [facility] Last Admin: 01/30/16 17:11 Dose: 5 mg Phenytoin (Dilantin) 100 mg PEG TID [facility] Last Admin: 01/30/16 17:11 Dose: 100 mg Polyethylene Glycol (Miralax) 17 gm PEG BID [facility] Last Admin: 08/21/15 11:26 Dose: Not Given - Labs Labs: 01/31/16 07:26 01/31/16 07:26 PT 10.6 SECONDS (9.7-12.2) 11/24/15 14:10 INR 1.0 11/24/15 14:10 APTT 25 SECONDS (21-34) 11/24/15 14:10 - Constitutional Appears: No Acute Distress - Eye Exam Eye Exam: PERRL. absent: Periorbital swelling Pupil Exam: PERRL - Neck Exam Neck Exam: absent: Lymphadenopathy, Thyromegaly - Respiratory Exam Respiratory Exam: absent: Rales, Rhonchi, Wheezes - Cardiovascular Exam Cardiovascular Exam: REGULAR RHYTHM, RRR, +S1, +S2 - GI/Abdominal Exam GI & Abdominal Exam: Soft, Normal Bowel Sounds. absent: Tenderness, Rebound - Neurological Exam Additional comments: nonverbal, no changes in neuro status Assessment and Plan - Assessment and Plan (Free Text) Assessment: 1) Anoxic encephalopathy Assessment & Plan: 01/30--> no new events, non verbal, tolerating Peg tube feeding, supportive management 01/29: no change, peg and trach in place 01/28: No acute changes in mental status, 01/27: No acute changes, patient not in respiratory distress. 01/26: No acute changes, peg tube in place, operational, running still at 50 cc/ hr at night with a bolus feed during the day 01/25: No acute changes, peg tube in place, operational, running still at 50 cc/ hr at night with a bolus feed during the day. 01/24: no acute changes, pet tube in place it is operational. 01/23: No acute changes in mental status. 01/22: NO acute changes in mental satus, peg tube in place and operational, thick white secretion from trach tube. 01/21: No acute change in mental status, peg tube operational no signs of blockage or infection(bolus during day and 50cc/hr at night. No acute change in mental status. PEG tube operational, tube feedings running at 50cc/hr at night and bolus feeds during the day 12/28: PEG tube placed at bedside by Dr. Chan. Abdominal X-ray showed PEG tube in position with contrast entering appropriately. PEG tube approved for use. GCS 8 [id number] patient with trach in place. Pending placement training family in how to take care of patient (2) Respiratory failure Assessment & Plan: 01/30--> tolerating on Trach Collar, 01/29: trach in place, no resp distress, 01/28: Trach collar in place, no respiratory distress, continue free water flushes 01/27: No respiratory distress, white secretions noted, continue free water flushes at 300 cc q8h. 01/26: Trach collar in place, white secretions still noted, continue free water flushes at 300 cc/hr. 01/25: Trach collar in place, white secretions still noted, continue free water flushes at 300 cc/hr. 01/24: No acute changes, tranch collar in place. Still using free water flushes at 300cc q6h, white secretions still noted. 3: Trach collar in place with same oxygen level of 6L, white secretions noted. 3/: No acute changes, trach collar in place at same level of 6L oxygen, thick white secretions noted. 3: No interval change, trach collar in place 6L O2 still, no secretions. no interval change. trach collar at 6L O2. No secretions noted this morning. Trach collar in place. Sputum culture 12/06 + pseudomonas: probably colonization. afebrile. normal white count. CXR without infiltrates. No antibiotics for now per Dr. Armstrong tracheostomy with tube change by Dr. Chan on 11/27/15 CXR 12/08--> Tracheostomy tube appears deviated to the left which may be related to patient positioning. Clinical correlation as this does not project over the midline trachea. Bibasilar atelectasis. Mild stable nodularity at the right lung base. (see full report) Cipro started on 11/30 was stopped on 12/08. clean and dry site saturating well on 7L O2 via trach collar No blood tinged secretions noted Bronchial washing grew Pseudomonas ID consult - Dr. Armstrong - help appreciated Working on getting portable suctioning for family to practice (3) Urinary tract infection Assessment & Plan: 01/30--> Baker;s in place, clear color urine, no bleeding, 01/29: baker in place 01/27: Resolved, Baker in place, urine is clear. 3: Resolved, Baker in place, 01/25: Resolved, Baker in place, urine is clear color this morning. 3/: Resolved, Baker in place, urine is a more dark yellow color. 3/: Resolved, Baker in place, urine is clear color. 3: Resolved no acute changes. 01/21: Resolved no changes afebrile, continue monitoring for fever 01/18: afebrile overnight. WBC 9.5 yesterday. CBC to be done twice weekly, unless increased frequency is clinically indicated 01/14: Off IV Zosyn, continue baker catheter. f/u CBC and monitor VS 01/13: Stop IV Zosyn today. 01/12: Continue IV Zosyn at this time with plan to dc on 01/13 per ID 01/11: continue Zosyn 3.375gm IVPB Q6H (day 5) will discontinue on 01/13/1601/09: Will speak with Dr. Armstrong regarding length of IV antibiotic therapy. In the meantime, continue Zosyn 3.375gm IVPB Q6H. Continue monitoring CBC and for fevers. 01/07: Continue Zosyn 3.375gm IVPB Q6H. Monitor for fevers, Monitor CBC 01/06: urine culture positive for proteus mirabilis (sensitive to tobramycin, zosyn, amikacin, gentamicin). baker catheter to be re-inserted. Switch to Zosyn 3.375gm IVPB Q6H per Dr. Armstrong. 01/05: f/u urine culture sensitivities. Continue Primaxin 500mg IVPB Q8H as per Dr. Armstrong. 01/04: Urine culture + for gram negative rods. spoke with Dr. Armstrong. switched rocephin to primaxin 500mg IVPB Q8H [place] catheter ordered to be used with skin prep to keep it on 01/03: urinalysis had 4+ protein, positive nitrates, 3+ leukocyte esterase. Rocephin 1gm IVPB daily started. Continue [place] catheter. Ditropan 5mg PEG TID for leakage around catheter Urology consult - Dr. Oropeza - help appreciated ID on board - Dr. Armstrong - help appreciated (4) CAD (coronary artery disease) Assessment & Plan: No new events. Cardiac stents on 06/13/15. Continue Lisinopril 5mg PO daily Continue Plavix 75mg PO daily Continue ASA 325mg PO daily-currently held due to recent trach bleeding (5) Seizures Assessment & Plan: no active seizures, continue dilantin 100mg tid through peg tube, continue to monitor patient closely. No active seizure, continue dilantin 100mg through peg tube TID Continue dilantin 100mg PEG TID SZ percaution, Fall precaution (6) Bed sore Assessment & Plan: 01/30--> Healed Sacral decubitus wound 01/27: Ecchymosis like bruising around his left hip and buttock area, will continue to monitor closely, monitor cbc closely as well. 01/27: No change, resolved, continue to monitor twice a week. 01/26: No change, continue to monitor twice a week. 01/25: No change, will continue to check twice a week. 01/24: No change, monitor twice a week 01/22: Monitor twice a week. 01/21: Resolved, continue to monitor patient twice a week. : sacral ulcer to be evaluated minimum twice per week. 01/19: Sacral ulcer healed, Stage 0 01/15: Sacral ulcer improving considerably, Stage I (one) ulcer observed, non- open continue wound care, sensicare, and medihoney sacral ulcer. Stage II 0.5cm x 1.5cm Continue wound care, sensicare and medihoney. Continue repositioning of patient q2H. dolphin mattress. Heel air boots. (7) Prophylactic measure Assessment & Plan: Lovenox 40 SC daily Pepcid 20 mg PO BID SCDs
[2016-01-31] MEDS: Enoxaparin 40 mg Syringe SC SCH (10:09)
[2016-01-31] MEDS: Phenytoin 100 mg/4 ml Oral Susp UD PEG SCH ×3 (10:09→18:08)
[2016-02-01] MEDS: Enoxaparin 40 mg Syringe SC SCH (10:54)
[2016-02-01] MEDS: Phenytoin 100 mg/4 ml Oral Susp UD PEG SCH ×3 (10:54→18:18)
--- NOTE | 2016-02-01 20:41 | CP.PCM.PN ---
<Joel Lin - Last Filed: 02/01/16 22:30> Subjective - Date & Time of Evaluation Date of Evaluation: 02/01/16 Time of Evaluation: 10:00 - Subjective Subjective: Patient seen in room. He is non verbal, no changes in mental status. Objective - Vital Signs/Intake and Output Vital Signs (last 24 hours): Temp Pulse Resp BP Pulse Ox 98.0 F 86 20 129/87 92 L 02/01/16 14:35 02/01/16 14:35 02/01/16 14:35 02/01/16 14:35 02/01/16 14:35 - Medications Medications: Current Medications Aspirin (Aspirin) 325 mg PO DAILY [facility] Last Admin: 11/23/15 09:42 Dose: 325 mg Clopidogrel Bisulfate (Plavix) 75 mg PO DAILY [facility] Last Admin: 02/01/16 10:54 Dose: 75 mg Enoxaparin Sodium (Lovenox) 40 mg SC DAILY [facility] Last Admin: 02/01/16 10:54 Dose: 40 mg Lisinopril (Zestril) 5 mg PO DAILY [facility] Last Admin: 02/01/16 10:54 Dose: 5 mg Oxybutynin Chloride (Ditropan Tab) 5 mg PO TID [facility] Last Admin: 02/01/16 18:19 Dose: 5 mg Phenytoin (Dilantin) 100 mg PEG TID [facility] Last Admin: 02/01/16 18:18 Dose: 100 mg Polyethylene Glycol (Miralax) 17 gm PEG BID [facility] Last Admin: 08/21/15 11:26 Dose: Not Given - Labs Labs: 01/31/16 07:26 01/31/16 07:26 PT 10.6 SECONDS (9.7-12.2) 11/24/15 14:10 INR 1.0 11/24/15 14:10 APTT 25 SECONDS (21-34) 11/24/15 14:10 - Constitutional Appears: Chronically Ill - Head Exam Head Exam: NORMAL INSPECTION, NORMOCEPHALIC - Eye Exam Eye Exam: PERRL Pupil Exam: NORMAL ACCOMODATION - ENT Exam ENT Exam: Normal Exam - Neck Exam Neck Exam: Normal Inspection - Respiratory Exam Respiratory Exam: Clear to Ausculation Bilateral. absent: Rales, Rhonchi, Wheezes - Cardiovascular Exam Cardiovascular Exam: REGULAR RHYTHM, RRR, +S1, +S2. absent: Gallop, Rubs - GI/Abdominal Exam GI & Abdominal Exam: Soft, Normal Bowel Sounds. absent: Tenderness - Extremities Exam Extremities Exam: Normal Inspection - Back Exam Back Exam: NORMAL INSPECTION - Neurological Exam Neurological Exam: Alert - Psychiatric Exam Psychiatric exam: Normal Affect, Normal Mood - Skin Skin Exam: Dry, Normal Color, Warm Assessment and Plan - Assessment and Plan (Free Text) Plan: 1) Anoxic encephalopathy Assessment & Plan: 01/31: No new events, tolerating peg tube feeding, continue supportive care. 01/30--> no new events, non verbal, tolerating Peg tube feeding, supportive management 01/29: no change, peg and trach in place 01/28: No acute changes in mental status, 01/27: No acute changes, patient not in respiratory distress. 01/26: No acute changes, peg tube in place, operational, running still at 50 cc/ hr at night with a bolus feed during the day 3: No acute changes, peg tube in place, operational, running still at 50 cc/ hr at night with a bolus feed during the day. 3: no acute changes, pet tube in place it is operational. 3: No acute changes in mental status. 3/: NO acute changes in mental satus, peg tube in place and operational, thick white secretion from trach tube. 3: No acute change in mental status, peg tube operational no signs of blockage or infection(bolus during day and 50cc/hr at night. No acute change in mental status. PEG tube operational, tube feedings running at 50cc/hr at night and bolus feeds during the day 2: PEG tube placed at bedside by Dr. Chan. Abdominal X-ray showed PEG tube in position with contrast entering appropriately. PEG tube approved for use. GCS 8 [id number] patient with trach in place. Pending placement training family in how to take care of patient (2) Respiratory failure Assessment & Plan: 01/31: Trach Collar in place, continue free water flushes 300 cc q8h. 01/30--> tolerating on Trach Collar, 01/29: trach in place, no resp distress, 01/28: Trach collar in place, no respiratory distress, continue free water flushes 01/27: No respiratory distress, white secretions noted, continue free water flushes at 300 cc q8h. 01/26: Trach collar in place, white secretions still noted, continue free water flushes at 300 cc/hr. 01/25: Trach collar in place, white secretions still noted, continue free water flushes at 300 cc/hr. 01/24: No acute changes, tranch collar in place. Still using free water flushes at 300cc q6h, white secretions still noted. 01/23: Trach collar in place with same oxygen level of 6L, white secretions noted. 32: No acute changes, trach collar in place at same level of 6L oxygen, thick white secretions noted. 01/21: No interval change, trach collar in place 6L O2 still, no secretions. no interval change. trach collar at 6L O2. No secretions noted this morning. Trach collar in place. Sputum culture 12/06 + pseudomonas: probably colonization. afebrile. normal white count. CXR without infiltrates. No antibiotics for now per Dr. Armstrong tracheostomy with tube change by Dr. Chan on 11/27/15 CXR 12/08--> Tracheostomy tube appears deviated to the left which may be related to patient positioning. Clinical correlation as this does not project over the midline trachea. Bibasilar atelectasis. Mild stable nodularity at the right lung base. (see full report) Cipro started on 11/30 was stopped on 12/08. clean and dry site saturating well on 7L O2 via trach collar No blood tinged secretions noted Bronchial washing grew Pseudomonas ID consult - Dr. Armstrong - help appreciated Working on getting portable suctioning for family to practice (3) Urinary tract infection Assessment & Plan: 01/31: Baker in place, clear color urine, no bleeding, continue to monitor. 01/30--> Baker;s in place, clear color urine, no bleeding, 01/29: baker in place 01/27: Resolved, Baker in place, urine is clear. 01/26: Resolved, Baker in place, 01/25: Resolved, Baker in place, urine is clear color this morning. 01/24: Resolved, Baker in place, urine is a more dark yellow color. 01/23: Resolved, Baker in place, urine is clear color. 3/2: Resolved no acute changes. 3/1: Resolved no changes afebrile, continue monitoring for fever 01/18: afebrile overnight. WBC 9.5 yesterday. CBC to be done twice weekly, unless increased frequency is clinically indicated 01/14: Off IV Zosyn, continue baker catheter. f/u CBC and monitor VS 01/13: Stop IV Zosyn today. 01/12: Continue IV Zosyn at this time with plan to dc on 01/13 per ID 01/11: continue Zosyn 3.375gm IVPB Q6H (day 5) will discontinue on 01/13/1601/09: Will speak with Dr. Armstrong regarding length of IV antibiotic therapy. In the meantime, continue Zosyn 3.375gm IVPB Q6H. Continue monitoring CBC and for fevers. 01/07: Continue Zosyn 3.375gm IVPB Q6H. Monitor for fevers, Monitor CBC 01/06: urine culture positive for proteus mirabilis (sensitive to tobramycin, zosyn, amikacin, gentamicin). baker catheter to be re-inserted. Switch to Zosyn 3.375gm IVPB Q6H per Dr. Armstrong. 01/05: f/u urine culture sensitivities. Continue Primaxin 500mg IVPB Q8H as per Dr. Armstrong. 01/04: Urine culture + for gram negative rods. spoke with Dr. Armstrong. switched rocephin to primaxin 500mg IVPB Q8H [place] catheter ordered to be used with skin prep to keep it on 01/03: urinalysis had 4+ protein, positive nitrates, 3+ leukocyte esterase. Rocephin 1gm IVPB daily started. Continue [place] catheter. Ditropan 5mg PEG TID for leakage around catheter Urology consult - Dr. Oropeza - help appreciated ID on board - Dr. Armstrong - help appreciated (4) CAD (coronary artery disease) Assessment & Plan: No new events. Cardiac stents on 06/13/15. Continue Lisinopril 5mg PO daily Continue Plavix 75mg PO daily Continue ASA 325mg PO daily-currently held due to recent trach bleeding (5) Seizures Assessment & Plan: no active seizures, continue dilantin 100mg tid through peg tube, continue to monitor patient closely. No active seizure, continue dilantin 100mg through peg tube TID Continue dilantin 100mg PEG TID SZ percaution, Fall precaution (6) Bed sore Assessment & Plan: 01/30--> Healed Sacral decubitus wound 01/27: Ecchymosis like bruising around his left hip and buttock area, will continue to monitor closely, monitor cbc closely as well. 01/27: No change, resolved, continue to monitor twice a week. 01/26: No change, continue to monitor twice a week. 01/25: No change, will continue to check twice a week. 01/24: No change, monitor twice a week 01/22: Monitor twice a week. 01/21: Resolved, continue to monitor patient twice a week. : sacral ulcer to be evaluated minimum twice per week. 01/19: Sacral ulcer healed, Stage 0 01/15: Sacral ulcer improving considerably, Stage I (one) ulcer observed, non- open continue wound care, sensicare, and medihoney sacral ulcer. Stage II 0.5cm x 1.5cm Continue wound care, sensicare and medihoney. Continue repositioning of patient q2H. dolphin mattress. Heel air boots. (7) Prophylactic measure Assessment & Plan: Lovenox 40 SC daily Pepcid 20 mg PO BID [facility] <Rashel Rodrigues - Last Filed: 02/02/16 09:07> Objective - Vital Signs/Intake and Output Vital Signs (last 24 hours): Temp Pulse Resp BP Pulse Ox 98.0 F 85 20 111/74 97 02/02/16 06:00 02/02/16 06:00 02/02/16 06:00 02/02/16 06:00 02/02/16 06:00 Intake and Output: 02/02/16 02/02/16 06:59 18:59 Intake Total 950 Output Total 775 Balance 175 - Medications Medications: Current Medications Aspirin (Aspirin) 325 mg PO DAILY [facility] Last Admin: 11/23/15 09:42 Dose: 325 mg Clopidogrel Bisulfate (Plavix) 75 mg PO DAILY [facility] Last Admin: 02/01/16 10:54 Dose: 75 mg Enoxaparin Sodium (Lovenox) 40 mg SC DAILY [facility] Last Admin: 02/01/16 10:54 Dose: 40 mg Lisinopril (Zestril) 5 mg PO DAILY [facility] Last Admin: 02/01/16 10:54 Dose: 5 mg Oxybutynin Chloride (Ditropan Tab) 5 mg PO TID [facility] Last Admin: 02/01/16 18:19 Dose: 5 mg Phenytoin (Dilantin) 100 mg PEG TID [facility] Last Admin: 02/01/16 18:18 Dose: 100 mg Polyethylene Glycol (Miralax) 17 gm PEG BID [facility] Last Admin: 08/21/15 11:26 Dose: Not Given - Labs Labs: 01/31/16 07:26 01/31/16 07:26 PT 10.6 SECONDS (9.7-12.2) 11/24/15 14:10 INR 1.0 11/24/15 14:10 APTT 25 SECONDS (21-34) 11/24/15 14:10 Attending/Attestation - Attestation I have personally seen and examined this patient.: Yes I have fully participated in the care of the patient.: Yes I have reviewed all pertinent clinical information, including history, physical exam and plan: Yes Notes (Text): 02/02/16 09:06 (Late entry for 02/01/16) Patient was seen and examined during the round with the resident. pt has no feer spiking, tolerating peg tube feeding Pt has no new events cont supporting care.
--- NOTE | 2016-02-02 04:28 | CP.PCM.PN ---
<Lauri Araya - Last Filed: 02/02/16 04:25> Subjective - Date & Time of Evaluation Date of Evaluation: 02/02/16 Time of Evaluation: 03:00 - Subjective Subjective: Medicine Note- Hospitalist Service Patient was seen and examined at bedside. Patient is non verbal. RoS unobtainable. Patient is awake, unresponsive to verbal stimuli. No events overnight, per nursing. Objective - Vital Signs/Intake and Output Vital Signs (last 24 hours): Temp Pulse Resp BP Pulse Ox 98.8 F 86 18 122/80 98 02/01/16 21:20 02/01/16 21:20 02/01/16 21:20 02/01/16 21:20 02/01/16 21:20 Intake and Output: 02/01/16 02/02/16 18:59 06:59 Output Total 500 Balance -500 - Medications Medications: Current Medications Aspirin (Aspirin) 325 mg PO DAILY [facility] Last Admin: 11/23/15 09:42 Dose: 325 mg Clopidogrel Bisulfate (Plavix) 75 mg PO DAILY [facility] Last Admin: 02/01/16 10:54 Dose: 75 mg Enoxaparin Sodium (Lovenox) 40 mg SC DAILY [facility] Last Admin: 02/01/16 10:54 Dose: 40 mg Lisinopril (Zestril) 5 mg PO DAILY [facility] Last Admin: 02/01/16 10:54 Dose: 5 mg Oxybutynin Chloride (Ditropan Tab) 5 mg PO TID [facility] Last Admin: 02/01/16 18:19 Dose: 5 mg Phenytoin (Dilantin) 100 mg PEG TID [facility] Last Admin: 02/01/16 18:18 Dose: 100 mg Polyethylene Glycol (Miralax) 17 gm PEG BID [facility] Last Admin: 08/21/15 11:26 Dose: Not Given - Labs Labs: 01/31/16 07:26 01/31/16 07:26 PT 10.6 SECONDS (9.7-12.2) 11/24/15 14:10 INR 1.0 11/24/15 14:10 APTT 25 SECONDS (21-34) 11/24/15 14:10 - Constitutional Appears: Non-toxic, No Acute Distress - Head Exam Head Exam: ATRAUMATIC, NORMAL INSPECTION, NORMOCEPHALIC - Eye Exam Pupil Exam: NORMAL ACCOMODATION, PERRL - ENT Exam ENT Exam: Mucous Membranes Moist Additional comments: trach still in place - Respiratory Exam Respiratory Exam: Clear to Ausculation Bilateral, NORMAL BREATHING PATTERN. absent: Prolonged Expiratory Phase, Rales, Rhonchi, Wheezes - Cardiovascular Exam Cardiovascular Exam: REGULAR RHYTHM, +S1, +S2 - GI/Abdominal Exam GI & Abdominal Exam: Soft, Normal Bowel Sounds. absent: Tenderness, Diminished Bowel Sounds, Hypoactive Bowel Sounds - Extremities Exam Extremities Exam: Normal Capillary Refill, Normal Inspection - Neurological Exam Neurological Exam: Alert, Awake, Oriented x3 - Psychiatric Exam Psychiatric exam: absent: Normal Affect, Normal Mood - Skin Skin Exam: Dry, Intact, Normal Color, Warm Assessment and Plan (1) Anoxic encephalopathy Status: Acute (2) Cardiac arrest Status: Acute (3) Chest congestion Status: Acute (4) Edema of upper extremity Status: Acute (5) Respiratory failure Status: Acute (6) STEMI (ST elevation myocardial infarction) Status: Acute (7) Seizures Status: Acute (8) Thrombophlebitis of superficial veins of upper extremities Status: Acute (9) Transaminitis Status: Acute (10) UTI (lower urinary tract infection) Status: Acute (11) Bed sore Status: Acute (12) Prophylactic measure Status: Acute - Assessment and Plan (Free Text) Assessment: 02/01: No new events, tolerating peg tube feeding, continue supportive care. 01/31: No new events, tolerating peg tube feeding, continue supportive care. 01/30--> no new events, non verbal, tolerating Peg tube feeding, supportive management 01/29: no change, peg and trach in place 01/28: No acute changes in mental status, 01/27: No acute changes, patient not in respiratory distress. 3/6: No acute changes, peg tube in place, operational, running still at 50 cc/ hr at night with a bolus feed during the day 3/5: No acute changes, peg tube in place, operational, running still at 50 cc/ hr at night with a bolus feed during the day. 3/4: no acute changes, pet tube in place it is operational. 3/3: No acute changes in mental status. 3/2: NO acute changes in mental satus, peg tube in place and operational, thick white secretion from trach tube. 3/1: No acute change in mental status, peg tube operational no signs of blockage or infection(bolus during day and 50cc/hr at night. No acute change in mental status. PEG tube operational, tube feedings running at 50cc/hr at night and bolus feeds during the day 12/28: PEG tube placed at bedside by Dr. Chan. Abdominal X-ray showed PEG tube in position with contrast entering appropriately. PEG tube approved for use. GCS 8 [id number] patient with trach in place. Pending placement training family in how to take care of patient (2) Respiratory failure Assessment & Plan: 01/31: Trach Collar in place, continue free water flushes 300 cc q8h. 01/30--> tolerating on Trach Collar, 01/29: trach in place, no resp distress, 01/28: Trach collar in place, no respiratory distress, continue free water flushes 01/27: No respiratory distress, white secretions noted, continue free water flushes at 300 cc q8h. 01/26: Trach collar in place, white secretions still noted, continue free water flushes at 300 cc/hr. 01/25: Trach collar in place, white secretions still noted, continue free water flushes at 300 cc/hr. 01/24: No acute changes, tranch collar in place. Still using free water flushes at 300cc q6h, white secretions still noted. 01/23: Trach collar in place with same oxygen level of 6L, white secretions noted. 01/22: No acute changes, trach collar in place at same level of 6L oxygen, thick white secretions noted. 01/21: No interval change, trach collar in place 6L O2 still, no secretions. no interval change. trach collar at 6L O2. No secretions noted this morning. Trach collar in place. Sputum culture 12/06 + pseudomonas: probably colonization. afebrile. normal white count. CXR without infiltrates. No antibiotics for now per Dr. Armstrong tracheostomy with tube change by Dr. Chan on 11/27/15 CXR 12/08--> Tracheostomy tube appears deviated to the left which may be related to patient positioning. Clinical correlation as this does not project over the midline trachea. Bibasilar atelectasis. Mild stable nodularity at the right lung base. (see full report) Cipro started on 11/30 was stopped on 1/16. clean and dry site saturating well on 7L O2 via trach collar No blood tinged secretions noted Bronchial washing grew Pseudomonas ID consult - Dr. Armstrong - help appreciated Working on getting portable suctioning for family to practice (3) Urinary tract infection Assessment & Plan: 01/31: Baker in place, clear color urine, no bleeding, continue to monitor. 01/30--> Baker;s in place, clear color urine, no bleeding, 01/29: baker in place 01/27: Resolved, Baker in place, urine is clear. 01/26: Resolved, Baker in place, 01/25: Resolved, Baker in place, urine is clear color this morning. 01/24: Resolved, Baker in place, urine is a more dark yellow color. 01/23: Resolved, Baker in place, urine is clear color. 01/22: Resolved no acute changes. 01/21: Resolved no changes afebrile, continue monitoring for fever 01/18: afebrile overnight. WBC 9.5 yesterday. CBC to be done twice weekly, unless increased frequency is clinically indicated 01/14: Off IV Zosyn, continue baker catheter. f/u CBC and monitor VS 01/13: Stop IV Zosyn today. 01/12: Continue IV Zosyn at this time with plan to dc on 01/13 per ID 01/11: continue Zosyn 3.375gm IVPB Q6H (day 5) will discontinue on 01/13/1601/09: Will speak with Dr. Armstrong regarding length of IV antibiotic therapy. In the meantime, continue Zosyn 3.375gm IVPB Q6H. Continue monitoring CBC and for fevers. 01/07: Continue Zosyn 3.375gm IVPB Q6H. Monitor for fevers, Monitor CBC 01/06: urine culture positive for proteus mirabilis (sensitive to tobramycin, zosyn, amikacin, gentamicin). baker catheter to be re-inserted. Switch to Zosyn 3.375gm IVPB Q6H per Dr. Armstrong. 01/05: f/u urine culture sensitivities. Continue Primaxin 500mg IVPB Q8H as per Dr. Armstrong. 01/04: Urine culture + for gram negative rods. spoke with Dr. Armstrong. switched rocephin to primaxin 500mg IVPB Q8H [place] catheter ordered to be used with skin prep to keep it on 01/03: urinalysis had 4+ protein, positive nitrates, 3+ leukocyte esterase. Rocephin 1gm IVPB daily started. Continue [place] catheter. Ditropan 5mg PEG TID for leakage around catheter Urology consult - Dr. Oropeza - help appreciated ID on board - Dr. Armstrong - help appreciated (4) CAD (coronary artery disease) Assessment & Plan: No new events. Cardiac stents on 06/13/15. Continue Lisinopril 5mg PO daily Continue Plavix 75mg PO daily Continue ASA 325mg PO daily-currently held due to recent trach bleeding (5) Seizures Assessment & Plan: no active seizures, continue dilantin 100mg tid through peg tube, continue to monitor patient closely. No active seizure, continue dilantin 100mg through peg tube TID Continue dilantin 100mg PEG TID SZ percaution, Fall precaution (6) Bed sore Assessment & Plan: 01/30--> Healed Sacral decubitus wound 3: Ecchymosis like bruising around his left hip and buttock area, will continue to monitor closely, monitor cbc closely as well. 3: No change, resolved, continue to monitor twice a week. 3: No change, continue to monitor twice a week. 3: No change, will continue to check twice a week. 3: No change, monitor twice a week 3: Monitor twice a week. 01/21: Resolved, continue to monitor patient twice a week. : sacral ulcer to be evaluated minimum twice per week. 01/19: Sacral ulcer healed, Stage 0 01/15: Sacral ulcer improving considerably, Stage I (one) ulcer observed, non- open continue wound care, sensicare, and medihoney sacral ulcer. Stage II 0.5cm x 1.5cm Continue wound care, sensicare and medihoney. Continue repositioning of patient q2H. dolphin mattress. Heel air boots. (7) Prophylactic measure Assessment & Plan: Lovenox 40 SC daily Pepcid 20 mg PO BID [facility] <Rashel Rodrigues - Last Filed: 02/02/16 14:15> Objective - Vital Signs/Intake and Output Vital Signs (last 24 hours): Temp Pulse Resp BP Pulse Ox 98.0 F 85 20 111/74 97 02/02/16 06:00 02/02/16 08:00 02/02/16 06:00 02/02/16 06:00 02/02/16 06:00 Intake and Output: 02/02/16 02/02/16 06:59 18:59 Intake Total 950 Output Total 775 Balance 175 - Medications Medications: Current Medications Aspirin (Aspirin) 325 mg PO DAILY [facility] Last Admin: 11/23/15 09:42 Dose: 325 mg Clopidogrel Bisulfate (Plavix) 75 mg PO DAILY [facility] Last Admin: 02/02/16 10:30 Dose: 75 mg Enoxaparin Sodium (Lovenox) 40 mg SC DAILY [facility] Last Admin: 02/02/16 10:30 Dose: 40 mg Lisinopril (Zestril) 5 mg PO DAILY [facility] Last Admin: 02/02/16 10:31 Dose: 5 mg Oxybutynin Chloride (Ditropan Tab) 5 mg PO TID [facility] Last Admin: 02/02/16 10:30 Dose: 5 mg Phenytoin (Dilantin) 100 mg PEG TID [facility] Last Admin: 02/02/16 10:30 Dose: 100 mg Polyethylene Glycol (Miralax) 17 gm PEG BID [facility] Last Admin: 08/21/15 11:26 Dose: Not Given - Labs Labs: 01/31/16 07:26 01/31/16 07:26 PT 10.6 SECONDS (9.7-12.2) 11/24/15 14:10 INR 1.0 11/24/15 14:10 APTT 25 SECONDS (21-34) 11/24/15 14:10 Attending/Attestation - Attestation I have personally seen and examined this patient.: Yes I have fully participated in the care of the patient.: Yes I have reviewed all pertinent clinical information, including history, physical exam and plan: Yes Notes (Text): 02/02/16 14:15 Patient was seen and examined during the round with the resident. no overnight events pt is tolerating TF, no fever, no acute distress cont supportive mx
[2016-02-02] MEDS: Phenytoin 100 mg/4 ml Oral Susp UD PEG SCH ×3 (10:30→17:55)
[2016-02-02] MEDS: Enoxaparin 40 mg Syringe SC SCH (10:30)
--- NOTE | 2016-02-03 05:06 | CP.PCM.PN ---
<Lauri Araya - Last Filed: 02/03/16 05:03> Subjective - Date & Time of Evaluation Date of Evaluation: 02/03/16 Time of Evaluation: 01:00 - Subjective Subjective: Medicine Note- Hospitalist service Patient was seen and examined at bedside. Patient's mental status remains altered, unresponsive to verbal and physical stimuli. RoS unobtainable. No changes in clinical status. No events overnight, per nursing. Objective - Vital Signs/Intake and Output Vital Signs (last 24 hours): Temp Pulse Resp BP Pulse Ox 98.6 F 79 20 118/80 98 02/02/16 22:57 02/02/16 22:57 02/02/16 22:57 02/02/16 22:57 02/02/16 22:57 Intake and Output: 02/02/16 02/03/16 18:59 07:59 Intake Total 1020 Output Total 1300 Balance -280 - Medications Medications: Current Medications Aspirin (Aspirin) 325 mg PO DAILY [facility] Last Admin: 11/23/15 09:42 Dose: 325 mg Clopidogrel Bisulfate (Plavix) 75 mg PO DAILY [facility] Last Admin: 02/02/16 10:30 Dose: 75 mg Enoxaparin Sodium (Lovenox) 40 mg SC DAILY [facility] Last Admin: 02/02/16 10:30 Dose: 40 mg Lisinopril (Zestril) 5 mg PO DAILY [facility] Last Admin: 02/02/16 10:31 Dose: 5 mg Oxybutynin Chloride (Ditropan Tab) 5 mg PO TID [facility] Last Admin: 02/02/16 17:55 Dose: 5 mg Phenytoin (Dilantin) 100 mg PEG TID [facility] Last Admin: 02/02/16 17:55 Dose: 100 mg Polyethylene Glycol (Miralax) 17 gm PEG BID [facility] Last Admin: 08/21/15 11:26 Dose: Not Given - Labs Labs: 01/31/16 07:26 01/31/16 07:26 PT 10.6 SECONDS (9.7-12.2) 11/24/15 14:10 INR 1.0 11/24/15 14:10 APTT 25 SECONDS (21-34) 11/24/15 14:10 - Constitutional Appears: Non-toxic, No Acute Distress, Chronically Ill - Head Exam Head Exam: ATRAUMATIC, NORMAL INSPECTION, NORMOCEPHALIC - Eye Exam Pupil Exam: NORMAL ACCOMODATION, PERRL - ENT Exam ENT Exam: Mucous Membranes Moist - Respiratory Exam Respiratory Exam: Rhonchi, NORMAL BREATHING PATTERN. absent: Prolonged Expiratory Phase, Rales, Wheezes - Cardiovascular Exam Cardiovascular Exam: REGULAR RHYTHM, +S1, +S2 - GI/Abdominal Exam GI & Abdominal Exam: Soft, Normal Bowel Sounds. absent: Tenderness, Diminished Bowel Sounds, Hypoactive Bowel Sounds - Extremities Exam Extremities Exam: Normal Capillary Refill, Normal Inspection - Neurological Exam Neurological Exam: Alert, Awake, Oriented x3 - Psychiatric Exam Psychiatric exam: Normal Affect, Normal Mood - Skin Skin Exam: Dry, Intact, Normal Color, Warm Assessment and Plan (1) Anoxic encephalopathy Status: Acute (2) Cardiac arrest Status: Acute (3) Chest congestion Status: Acute (4) Edema of upper extremity Status: Acute (5) Respiratory failure Status: Acute (6) STEMI (ST elevation myocardial infarction) Status: Acute (7) Seizures Status: Acute (8) Thrombophlebitis of superficial veins of upper extremities Status: Acute (9) Transaminitis Status: Acute (10) UTI (lower urinary tract infection) Status: Acute (11) Bed sore Status: Acute (12) Prophylactic measure Status: Acute - Assessment and Plan (Free Text) Assessment: 02/02: No new events, tolerating peg tube feeding, continue supportive care. 02/01: No new events, tolerating peg tube feeding, continue supportive care. 01/31: No new events, tolerating peg tube feeding, continue supportive care. 01/30--> no new events, non verbal, tolerating Peg tube feeding, supportive management 01/29: no change, peg and trach in place 01/28: No acute changes in mental status, 01/27: No acute changes, patient not in respiratory distress. 3/6: No acute changes, peg tube in place, operational, running still at 50 cc/ hr at night with a bolus feed during the day 3/5: No acute changes, peg tube in place, operational, running still at 50 cc/ hr at night with a bolus feed during the day. 3/4: no acute changes, pet tube in place it is operational. 3/3: No acute changes in mental status. 3/2: NO acute changes in mental satus, peg tube in place and operational, thick white secretion from trach tube. 3/: No acute change in mental status, peg tube operational no signs of blockage or infection(bolus during day and 50cc/hr at night. No acute change in mental status. PEG tube operational, tube feedings running at 50cc/hr at night and bolus feeds during the day 12/28: PEG tube placed at bedside by Dr. Chan. Abdominal X-ray showed PEG tube in position with contrast entering appropriately. PEG tube approved for use. GCS 8 [id number] patient with trach in place. Pending placement training family in how to take care of patient (2) Respiratory failure Assessment & Plan: 01/31: Trach Collar in place, continue free water flushes 300 cc q8h. 01/30--> tolerating on Trach Collar, 01/29: trach in place, no resp distress, 01/28: Trach collar in place, no respiratory distress, continue free water flushes 01/27: No respiratory distress, white secretions noted, continue free water flushes at 300 cc q8h. 01/26: Trach collar in place, white secretions still noted, continue free water flushes at 300 cc/hr. 01/25: Trach collar in place, white secretions still noted, continue free water flushes at 300 cc/hr. 01/24: No acute changes, tranch collar in place. Still using free water flushes at 300cc q6h, white secretions still noted. 01/23: Trach collar in place with same oxygen level of 6L, white secretions noted. 01/22: No acute changes, trach collar in place at same level of 6L oxygen, thick white secretions noted. 01/21: No interval change, trach collar in place 6L O2 still, no secretions. no interval change. trach collar at 6L O2. No secretions noted this morning. Trach collar in place. Sputum culture 12/06 + pseudomonas: probably colonization. afebrile. normal white count. CXR without infiltrates. No antibiotics for now per Dr. Armstrong tracheostomy with tube change by Dr. Chan on 11/27/15 CXR 12/08--> Tracheostomy tube appears deviated to the left which may be related to patient positioning. Clinical correlation as this does not project over the midline trachea. Bibasilar atelectasis. Mild stable nodularity at the right lung base. (see full report) Cipro started on 11/30 was stopped on 12/08. clean and dry site saturating well on 7L O2 via trach collar No blood tinged secretions noted Bronchial washing grew Pseudomonas ID consult - Dr. Armstrong - help appreciated Working on getting portable suctioning for family to practice (3) Urinary tract infection Assessment & Plan: 01/31: Baker in place, clear color urine, no bleeding, continue to monitor. 01/30--> Baker;s in place, clear color urine, no bleeding, 01/29: baker in place 01/27: Resolved, Bkaer in place, urine is clear. 01/26: Resolved, Baker in place, 01/25: Resolved, Baker in place, urine is clear color this morning. 01/24: Resolved, Baker in place, urine is a more dark yellow color. 01/23: Resolved, Baker in place, urine is clear color. 01/22: Resolved no acute changes. 01/21: Resolved no changes afebrile, continue monitoring for fever 01/18: afebrile overnight. WBC 9.5 yesterday. CBC to be done twice weekly, unless increased frequency is clinically indicated 01/14: Off IV Zosyn, continue baker catheter. f/u CBC and monitor VS 01/13: Stop IV Zosyn today. 01/12: Continue IV Zosyn at this time with plan to dc on 01/13 per ID 01/11: continue Zosyn 3.375gm IVPB Q6H (day 5) will discontinue on 01/13/1601/09: Will speak with Dr. Armstrong regarding length of IV antibiotic therapy. In the meantime, continue Zosyn 3.375gm IVPB Q6H. Continue monitoring CBC and for fevers. 01/07: Continue Zosyn 3.375gm IVPB Q6H. Monitor for fevers, Monitor CBC 01/06: urine culture positive for proteus mirabilis (sensitive to tobramycin, zosyn, amikacin, gentamicin). baker catheter to be re-inserted. Switch to Zosyn 3.375gm IVPB Q6H per Dr. Armstrong. 01/05: f/u urine culture sensitivities. Continue Primaxin 500mg IVPB Q8H as per Dr. Armstrong. 01/04: Urine culture + for gram negative rods. spoke with Dr. Armstrong. switched rocephin to primaxin 500mg IVPB Q8H [place] catheter ordered to be used with skin prep to keep it on 01/03: urinalysis had 4+ protein, positive nitrates, 3+ leukocyte esterase. Rocephin 1gm IVPB daily started. Continue [place] catheter. Ditropan 5mg PEG TID for leakage around catheter Urology consult - Dr. Oropeza - help appreciated ID on board - Dr. Armstrong - help appreciated (4) CAD (coronary artery disease) Assessment & Plan: No new events. Cardiac stents on 06/13/15. Continue Lisinopril 5mg PO daily Continue Plavix 75mg PO daily Continue ASA 325mg PO daily-currently held due to recent trach bleeding (5) Seizures Assessment & Plan: no active seizures, continue dilantin 100mg tid through peg tube, continue to monitor patient closely. No active seizure, continue dilantin 100mg through peg tube TID Continue dilantin 100mg PEG TID SZ percaution, Fall precaution (6) Bed sore Assessment & Plan: 01/30--> Healed Sacral decubitus wound 01/27: Ecchymosis like bruising around his left hip and buttock area, will continue to monitor closely, monitor cbc closely as well. 01/27: No change, resolved, continue to monitor twice a week. 01/26: No change, continue to monitor twice a week. 01/25: No change, will continue to check twice a week. 3: No change, monitor twice a week 3: Monitor twice a week. 01/21: Resolved, continue to monitor patient twice a week. : sacral ulcer to be evaluated minimum twice per week. 01/19: Sacral ulcer healed, Stage 0 01/15: Sacral ulcer improving considerably, Stage I (one) ulcer observed, non- open continue wound care, sensicare, and medihoney sacral ulcer. Stage II 0.5cm x 1.5cm Continue wound care, sensicare and medihoney. Continue repositioning of patient q2H. dolphin mattress. Heel air boots. (7) Prophylactic measure Assessment & Plan: Lovenox 40 SC daily Pepcid 20 mg PO BID [facility] <Nyunt,Rashel - Last Filed: 02/03/16 18:45> Objective - Vital Signs/Intake and Output Vital Signs (last 24 hours): Temp Pulse Resp BP Pulse Ox 99.3 F 90 21 123/80 100 02/03/16 14:00 02/03/16 14:00 02/03/16 14:00 02/03/16 14:00 02/03/16 14:00 Intake and Output: 02/03/16 02/03/16 06:59 18:59 Intake Total Output Total Balance - Medications Medications: Current Medications Aspirin (Aspirin) 325 mg PO DAILY [facility] Last Admin: 11/23/15 09:42 Dose: 325 mg Clopidogrel Bisulfate (Plavix) 75 mg PO DAILY [facility] Last Admin: 02/03/16 09:30 Dose: 75 mg Enoxaparin Sodium (Lovenox) 40 mg SC DAILY [facility] Last Admin: 02/03/16 09:30 Dose: 40 mg Lisinopril (Zestril) 5 mg PO DAILY [facility] Last Admin: 02/03/16 09:31 Dose: Not Given Oxybutynin Chloride (Ditropan Tab) 5 mg PO TID [facility] Last Admin: 02/03/16 17:05 Dose: 5 mg Phenytoin (Dilantin) 100 mg PEG TID [facility] Last Admin: 02/03/16 17:05 Dose: 100 mg Polyethylene Glycol (Miralax) 17 gm PEG BID [facility] Last Admin: 08/21/15 11:26 Dose: Not Given - Labs Labs: 01/31/16 07:26 01/31/16 07:26 PT 10.6 SECONDS (9.7-12.2) 11/24/15 14:10 INR 1.0 11/24/15 14:10 APTT 25 SECONDS (21-34) 11/24/15 14:10 Attending/Attestation - Attestation I have personally seen and examined this patient.: Yes I have fully participated in the care of the patient.: Yes I have reviewed all pertinent clinical information, including history, physical exam and plan: Yes Notes (Text): 02/03/16 18:44 Patient was seen and examined during the round with the resident. no new events Cont Supportive mx cont TF as tolerated, Trach and Peg sites were clean and dry.
[2016-02-03] MEDS: Phenytoin 100 mg/4 ml Oral Susp UD PEG SCH ×3 (09:30→17:05)
[2016-02-03] MEDS: Enoxaparin 40 mg Syringe SC SCH (09:30)
[2016-02-04] MEDS: Phenytoin 100 mg/4 ml Oral Susp UD PEG SCH ×3 (10:19→16:59)
[2016-02-04] MEDS: Enoxaparin 40 mg Syringe SC SCH ×2 (10:19→19:49)
--- NOTE | 2016-02-04 15:56 | CP.PCM.PN ---
<Joel Lin - Last Filed: 02/04/16 16:45> Subjective - Date & Time of Evaluation Date of Evaluation: 02/04/16 Time of Evaluation: 10:00 - Subjective Subjective: Patient seen in room, no acute changes in mental status. Patient is having some twitching of the extraocular eye muscles. Spoke with patient's cousin who asked about patient's heart condition, I explained to him signs in the room dealing how the patient is being treated. I explained the sign for moving the patient to keep him from having pressure ulcers, I explained to him the sign for PEG tub feeding schedule. I explained to him the sign that explains his trach collar care. He asked to donate a cardiac sonographer and oxygen saturation machine for patient. I tried to explain to him it would not be possible without hospital administration approval, he said he would be back tomorrow. He also expressed his approval of current care the patient is receiving. Objective - Vital Signs/Intake and Output Vital Signs (last 24 hours): Temp Pulse Resp BP Pulse Ox 98.3 F 84 20 120/77 99 02/04/16 13:00 02/04/16 13:00 02/04/16 13:00 02/04/16 13:00 02/04/16 13:00 Intake and Output: 02/04/16 02/04/16 06:59 18:59 Intake Total 2350 Output Total 2350 Balance 0 - Medications Medications: Current Medications Aspirin (Aspirin) 325 mg PO DAILY [facility] Last Admin: 11/23/15 09:42 Dose: 325 mg Clopidogrel Bisulfate (Plavix) 75 mg PO DAILY [facility] Last Admin: 02/04/16 10:19 Dose: 75 mg Lisinopril (Zestril) 5 mg PO DAILY [facility] Last Admin: 02/04/16 10:19 Dose: 5 mg Oxybutynin Chloride (Ditropan Tab) 5 mg PO TID [facility] Last Admin: 02/04/16 13:58 Dose: 5 mg Phenytoin (Dilantin) 100 mg PEG TID [facility] Last Admin: 02/04/16 13:58 Dose: 100 mg Polyethylene Glycol (Miralax) 17 gm PEG BID [facility] Last Admin: 08/21/15 11:26 Dose: Not Given - Labs Labs: 01/31/16 07:26 01/31/16 07:26 PT 10.6 SECONDS (9.7-12.2) 11/24/15 14:10 INR 1.0 11/24/15 14:10 APTT 25 SECONDS (21-34) 11/24/15 14:10 - Constitutional Appears: Chronically Ill - Head Exam Head Exam: NORMAL INSPECTION, NORMOCEPHALIC - Eye Exam Eye Exam: Normal appearance, PERRL Pupil Exam: NORMAL ACCOMODATION - ENT Exam ENT Exam: Normal Exam - Neck Exam Neck Exam: Normal Inspection Additional comments: Trach collar in place no signs of bleeding. - Respiratory Exam Respiratory Exam: Clear to Ausculation Bilateral. absent: Rales, Rhonchi, Wheezes - Cardiovascular Exam Cardiovascular Exam: REGULAR RHYTHM, RRR, +S1, +S2. absent: Gallop, Rubs - GI/Abdominal Exam GI & Abdominal Exam: Soft, Normal Bowel Sounds. absent: Tenderness - Extremities Exam Extremities Exam: Normal Inspection - Back Exam Back Exam: NORMAL INSPECTION - Neurological Exam Neurological Exam: Alert - Psychiatric Exam Psychiatric exam: Normal Affect, Normal Mood - Skin Skin Exam: Dry, Normal Color, Warm Assessment and Plan - Assessment and Plan (Free Text) Assessment: Plan: 1) Anoxic encephalopathy Assessment & Plan: 02/03: New new events, continue supportive care 01/31: No new events, tolerating peg tube feeding, continue supportive care. 01/30--> no new events, non verbal, tolerating Peg tube feeding, supportive management 01/29: no change, peg and trach in place 3: No acute changes in mental status, 01/27: No acute changes, patient not in respiratory distress. 3/6: No acute changes, peg tube in place, operational, running still at 50 cc/ hr at night with a bolus feed during the day 3/5: No acute changes, peg tube in place, operational, running still at 50 cc/ hr at night with a bolus feed during the day. 3/4: no acute changes, pet tube in place it is operational. 3/3: No acute changes in mental status. 3/2: NO acute changes in mental satus, peg tube in place and operational, thick white secretion from trach tube. 3/1: No acute change in mental status, peg tube operational no signs of blockage or infection(bolus during day and 50cc/hr at night. No acute change in mental status. PEG tube operational, tube feedings running at 50cc/hr at night and bolus feeds during the day 12/28: PEG tube placed at bedside by Dr. Chan. Abdominal X-ray showed PEG tube in position with contrast entering appropriately. PEG tube approved for use. GCS 8 [id number] patient with trach in place. Pending placement training family in how to take care of patient (2) Respiratory failure Assessment & Plan: 02/03: Tolerating trach collar, continue free water fluesh 300 cc q8h. 01/31: Trach Collar in place, continue free water flushes 300 cc q8h. 01/30--> tolerating on Trach Collar, 01/29: trach in place, no resp distress, 01/28: Trach collar in place, no respiratory distress, continue free water flushes 01/27: No respiratory distress, white secretions noted, continue free water flushes at 300 cc q8h. 01/26: Trach collar in place, white secretions still noted, continue free water flushes at 300 cc/hr. 01/25: Trach collar in place, white secretions still noted, continue free water flushes at 300 cc/hr. 01/24: No acute changes, tranch collar in place. Still using free water flushes at 300cc q6h, white secretions still noted. 01/23: Trach collar in place with same oxygen level of 6L, white secretions noted. 01/22: No acute changes, trach collar in place at same level of 6L oxygen, thick white secretions noted. 01/21: No interval change, trach collar in place 6L O2 still, no secretions. no interval change. trach collar at 6L O2. No secretions noted this morning. Trach collar in place. Sputum culture 12/06 + pseudomonas: probably colonization. afebrile. normal white count. CXR without infiltrates. No antibiotics for now per Dr. Armstrong tracheostomy with tube change by Dr. Chan on 11/27/15 CXR 12/08--> Tracheostomy tube appears deviated to the left which may be related to patient positioning. Clinical correlation as this does not project over the midline trachea. Bibasilar atelectasis. Mild stable nodularity at the right lung base. (see full report) Cipro started on 11/30 was stopped on 12/08. clean and dry site saturating well on 7L O2 via trach collar No blood tinged secretions noted Bronchial washing grew Pseudomonas ID consult - Dr. Armstrong - help appreciated Working on getting portable suctioning for family to practice (3) Urinary tract infection Assessment & Plan: 02/03: Baker in place, urine clear, will change baker every 3 weeks. 01/31: Baker in place, clear color urine, no bleeding, continue to monitor. 01/30--> Baker;s in place, clear color urine, no bleeding, 01/29: baker in place 01/27: Resolved, Baker in place, urine is clear. 01/26: Resolved, Baker in place, 01/25: Resolved, Baker in place, urine is clear color this morning. 01/24: Resolved, Baker in place, urine is a more dark yellow color. 01/23: Resolved, Baker in place, urine is clear color. 01/22: Resolved no acute changes. 01/21: Resolved no changes afebrile, continue monitoring for fever 01/18: afebrile overnight. WBC 9.5 yesterday. CBC to be done twice weekly, unless increased frequency is clinically indicated 01/14: Off IV Zosyn, continue baker catheter. f/u CBC and monitor VS 01/13: Stop IV Zosyn today. 01/12: Continue IV Zosyn at this time with plan to dc on 01/13 per ID 01/11: continue Zosyn 3.375gm IVPB Q6H (day 5) will discontinue on 01/13/1601/09: Will speak with Dr. Armstrong regarding length of IV antibiotic therapy. In the meantime, continue Zosyn 3.375gm IVPB Q6H. Continue monitoring CBC and for fevers. 01/07: Continue Zosyn 3.375gm IVPB Q6H. Monitor for fevers, Monitor CBC 01/06: urine culture positive for proteus mirabilis (sensitive to tobramycin, zosyn, amikacin, gentamicin). baker catheter to be re-inserted. Switch to Zosyn 3.375gm IVPB Q6H per Dr. Armstrong. 01/05: f/u urine culture sensitivities. Continue Primaxin 500mg IVPB Q8H as per Dr. Armstrong. 01/04: Urine culture + for gram negative rods. spoke with Dr. Armstrong. switched rocephin to primaxin 500mg IVPB Q8H [place] catheter ordered to be used with skin prep to keep it on 01/03: urinalysis had 4+ protein, positive nitrates, 3+ leukocyte esterase. Rocephin 1gm IVPB daily started. Continue [place] catheter. Ditropan 5mg PEG TID for leakage around catheter Urology consult - Dr. Oropeza - help appreciated ID on board - Dr. Armstrong - help appreciated (4) CAD (coronary artery disease) Assessment & Plan: No new events. Cardiac stents on 06/13/15. Continue Lisinopril 5mg PO daily Continue Plavix 75mg PO daily Continue ASA 325mg PO daily-currently held due to recent trach bleeding (5) Seizures Assessment & Plan: no active seizures, continue dilantin 100mg tid through peg tube, continue to monitor patient closely. No active seizure, continue dilantin 100mg through peg tube TID Continue dilantin 100mg PEG TID SZ percaution, Fall precaution (6) Bed sore Assessment & Plan: 02/03: Continue move patient q2h, continue check patient twice a week. 01/30--> Healed Sacral decubitus wound 01/27: Ecchymosis like bruising around his left hip and buttock area, will continue to monitor closely, monitor cbc closely as well. 01/27: No change, resolved, continue to monitor twice a week. 01/26: No change, continue to monitor twice a week. 01/25: No change, will continue to check twice a week. 3: No change, monitor twice a week 3: Monitor twice a week. 01/21: Resolved, continue to monitor patient twice a week. : sacral ulcer to be evaluated minimum twice per week. 01/19: Sacral ulcer healed, Stage 0 01/15: Sacral ulcer improving considerably, Stage I (one) ulcer observed, non- open continue wound care, sensicare, and medihoney sacral ulcer. Stage II 0.5cm x 1.5cm Continue wound care, sensicare and medihoney. Continue repositioning of patient q2H. dolphin mattress. Heel air boots. (7) Prophylactic measure Assessment & Plan: Lovenox 40 SC daily Pepcid 20 mg PO BID [facility] <Donnell Ying M - Last Filed: 02/04/16 17:24> Objective - Vital Signs/Intake and Output Vital Signs (last 24 hours): Temp Pulse Resp BP Pulse Ox 98.3 F 84 20 120/77 99 02/04/16 13:00 02/04/16 13:00 02/04/16 13:00 02/04/16 13:00 02/04/16 13:00 Intake and Output: 02/04/16 02/04/16 06:59 18:59 Intake Total 2350 Output Total 2350 Balance 0 - Medications Medications: Current Medications Aspirin (Aspirin) 325 mg PO DAILY [facility] Last Admin: 11/23/15 09:42 Dose: 325 mg Clopidogrel Bisulfate (Plavix) 75 mg PO DAILY [facility] Last Admin: 02/04/16 10:19 Dose: 75 mg Lisinopril (Zestril) 5 mg PO DAILY [facility] Last Admin: 02/04/16 10:19 Dose: 5 mg Oxybutynin Chloride (Ditropan Tab) 5 mg PO TID [facility] Last Admin: 02/04/16 16:59 Dose: 5 mg Phenytoin (Dilantin) 100 mg PEG TID [facility] Last Admin: 02/04/16 16:59 Dose: 100 mg Polyethylene Glycol (Miralax) 17 gm PEG BID [facility] Last Admin: 08/21/15 11:26 Dose: Not Given - Labs Labs: 01/31/16 07:26 01/31/16 07:26 PT 10.6 SECONDS (9.7-12.2) 11/24/15 14:10 INR 1.0 11/24/15 14:10 APTT 25 SECONDS (21-34) 11/24/15 14:10 Attending/Attestation - Attestation I have personally seen and examined this patient.: Yes I have fully participated in the care of the patient.: Yes I have reviewed all pertinent clinical information, including history, physical exam and plan: Yes Notes (Text): 02/04/16 17:22 Patient was seen and examined at bedside with the resident. There's no change in clinical condition. Turn and position patient every 2 hours Continue local treatment for sacral decubitus ulcers and skin dryness Continue care for PEG tube and tracheostomy. We will change Baker's cath every 3-4 weeks
[2016-02-05] MEDS: Phenytoin 100 mg/4 ml Oral Susp UD PEG SCH ×3 (10:07→17:17)
[2016-02-05] MEDS: Enoxaparin 40 mg Syringe SC SCH (10:11)
--- NOTE | 2016-02-05 17:57 | CP.PCM.PN ---
<Joel Lin H - Last Filed: 02/05/16 17:59> Subjective - Date & Time of Evaluation Date of Evaluation: 02/05/16 Time of Evaluation: 05:55 - Subjective Subjective: Patient evealuated with nurse at bedside. Patient is still not responsive with some reflexes present. Objective - Vital Signs/Intake and Output Vital Signs (last 24 hours): Temp Pulse Resp BP Pulse Ox 98.1 F 78 20 128/87 100 02/05/16 14:00 02/05/16 14:00 02/05/16 14:00 02/05/16 14:00 02/05/16 14:00 Intake and Output: 02/05/16 02/05/16 06:59 18:59 Intake Total 2120 Output Total 1175 600 Balance 945 -600 - Medications Medications: Current Medications Aspirin (Aspirin) 325 mg PO DAILY [facility] Last Admin: 11/23/15 09:42 Dose: 325 mg Clopidogrel Bisulfate (Plavix) 75 mg PO DAILY [facility] Last Admin: 02/05/16 10:07 Dose: 75 mg Enoxaparin Sodium (Lovenox) 40 mg SC DAILY [facility] Last Admin: 02/05/16 10:11 Dose: Not Given Lisinopril (Zestril) 5 mg PO DAILY [facility] Last Admin: 02/05/16 10:07 Dose: 5 mg Oxybutynin Chloride (Ditropan Tab) 5 mg PO TID [facility] Last Admin: 02/05/16 17:17 Dose: 5 mg Phenytoin (Dilantin) 100 mg PEG TID [facility] Last Admin: 02/05/16 17:17 Dose: 100 mg Polyethylene Glycol (Miralax) 17 gm PEG BID [facility] Last Admin: 08/21/15 11:26 Dose: Not Given - Labs Labs: 01/31/16 07:26 01/31/16 07:26 PT 10.6 SECONDS (9.7-12.2) 11/24/15 14:10 INR 1.0 11/24/15 14:10 APTT 25 SECONDS (21-34) 11/24/15 14:10 - Constitutional Appears: Non-toxic, No Acute Distress - Head Exam Head Exam: ATRAUMATIC, NORMAL INSPECTION, NORMOCEPHALIC - Eye Exam Eye Exam: Normal appearance, PERRL Pupil Exam: NORMAL ACCOMODATION - ENT Exam ENT Exam: Normal Exam - Neck Exam Neck Exam: Normal Inspection - Respiratory Exam Respiratory Exam: Clear to Ausculation Bilateral. absent: Rhonchi, Wheezes - Cardiovascular Exam Cardiovascular Exam: REGULAR RHYTHM, RRR, +S1, +S2. absent: Gallop, Rubs - GI/Abdominal Exam GI & Abdominal Exam: Soft, Normal Bowel Sounds. absent: Tenderness - Back Exam Back Exam: NORMAL INSPECTION - Psychiatric Exam Psychiatric exam: Normal Affect, Normal Mood - Skin Skin Exam: Normal Color, Warm Assessment and Plan - Assessment and Plan (Free Text) Assessment: 1) Anoxic encephalopathy Assessment & Plan: 02/04: No new events, continue supportive care. 02/03: New new events, continue supportive care 01/31: No new events, tolerating peg tube feeding, continue supportive care. 01/30--> no new events, non verbal, tolerating Peg tube feeding, supportive management 01/29: no change, peg and trach in place 01/28: No acute changes in mental status, 01/27: No acute changes, patient not in respiratory distress. 3: No acute changes, peg tube in place, operational, running still at 50 cc/ hr at night with a bolus feed during the day 3: No acute changes, peg tube in place, operational, running still at 50 cc/ hr at night with a bolus feed during the day. 3: no acute changes, pet tube in place it is operational. 3: No acute changes in mental status. 3/2: NO acute changes in mental satus, peg tube in place and operational, thick white secretion from trach tube. 3: No acute change in mental status, peg tube operational no signs of blockage or infection(bolus during day and 50cc/hr at night. No acute change in mental status. PEG tube operational, tube feedings running at 50cc/hr at night and bolus feeds during the day 2: PEG tube placed at bedside by Dr. Chan. Abdominal X-ray showed PEG tube in position with contrast entering appropriately. PEG tube approved for use. GCS 8 [id number] patient with trach in place. Pending placement training family in how to take care of patient (2) Respiratory failure Assessment & Plan: 02/04: Trach collar in place, Respiratory did some suction. 02/03: Tolerating trach collar, continue free water fluesh 300 cc q8h. 01/31: Trach Collar in place, continue free water flushes 300 cc q8h. 01/30--> tolerating on Trach Collar, 01/29: trach in place, no resp distress, 01/28: Trach collar in place, no respiratory distress, continue free water flushes 01/27: No respiratory distress, white secretions noted, continue free water flushes at 300 cc q8h. 01/26: Trach collar in place, white secretions still noted, continue free water flushes at 300 cc/hr. 01/25: Trach collar in place, white secretions still noted, continue free water flushes at 300 cc/hr. 01/24: No acute changes, tranch collar in place. Still using free water flushes at 300cc q6h, white secretions still noted. 01/23: Trach collar in place with same oxygen level of 6L, white secretions noted. 01/22: No acute changes, trach collar in place at same level of 6L oxygen, thick white secretions noted. 01/21: No interval change, trach collar in place 6L O2 still, no secretions. no interval change. trach collar at 6L O2. No secretions noted this morning. Trach collar in place. Sputum culture 12/06 + pseudomonas: probably colonization. afebrile. normal white count. CXR without infiltrates. No antibiotics for now per Dr. Armstrong tracheostomy with tube change by Dr. Chan on 11/27/15 CXR 12/08--> Tracheostomy tube appears deviated to the left which may be related to patient positioning. Clinical correlation as this does not project over the midline trachea. Bibasilar atelectasis. Mild stable nodularity at the right lung base. (see full report) Cipro started on 11/30 was stopped on 12/08. clean and dry site saturating well on 7L O2 via trach collar No blood tinged secretions noted Bronchial washing grew Pseudomonas ID consult - Dr. Armstrong - help appreciated Working on getting portable suctioning for family to practice (3) Urinary tract infection Assessment & Plan: 02/04: Baker in place, urine clear. 02/03: Baker in place, urine clear, will change baker every 3 weeks. 01/31: Baker in place, clear color urine, no bleeding, continue to monitor. 01/30--> Baker;s in place, clear color urine, no bleeding, 01/29: baker in place 01/27: Resolved, Baker in place, urine is clear. 01/26: Resolved, Baker in place, 01/25: Resolved, Baker in place, urine is clear color this morning. 01/24: Resolved, Baker in place, urine is a more dark yellow color. 01/23: Resolved, Baker in place, urine is clear color. 01/22: Resolved no acute changes. 01/21: Resolved no changes afebrile, continue monitoring for fever 01/18: afebrile overnight. WBC 9.5 yesterday. CBC to be done twice weekly, unless increased frequency is clinically indicated 01/14: Off IV Zosyn, continue baker catheter. f/u CBC and monitor VS 01/13: Stop IV Zosyn today. 01/12: Continue IV Zosyn at this time with plan to dc on 01/13 per ID 01/11: continue Zosyn 3.375gm IVPB Q6H (day 5) will discontinue on 01/13/1601/09: Will speak with Dr. Armstrong regarding length of IV antibiotic therapy. In the meantime, continue Zosyn 3.375gm IVPB Q6H. Continue monitoring CBC and for fevers. 01/07: Continue Zosyn 3.375gm IVPB Q6H. Monitor for fevers, Monitor CBC 01/06: urine culture positive for proteus mirabilis (sensitive to tobramycin, zosyn, amikacin, gentamicin). baker catheter to be re-inserted. Switch to Zosyn 3.375gm IVPB Q6H per Dr. Armstrong. 01/05: f/u urine culture sensitivities. Continue Primaxin 500mg IVPB Q8H as per Dr. Armstrong. 01/04: Urine culture + for gram negative rods. spoke with Dr. Armstrong. switched rocephin to primaxin 500mg IVPB Q8H [place] catheter ordered to be used with skin prep to keep it on 01/03: urinalysis had 4+ protein, positive nitrates, 3+ leukocyte esterase. Rocephin 1gm IVPB daily started. Continue [place] catheter. Ditropan 5mg PEG TID for leakage around catheter Urology consult - Dr. Oropeza - help appreciated ID on board - Dr. Armstrong - help appreciated (4) CAD (coronary artery disease) Assessment & Plan: No new events. Cardiac stents on 06/13/15. Continue Lisinopril 5mg PO daily Continue Plavix 75mg PO daily Continue ASA 325mg PO daily-currently held due to recent trach bleeding (5) Seizures Assessment & Plan: no active seizures, continue dilantin 100mg tid through peg tube, continue to monitor patient closely. No active seizure, continue dilantin 100mg through peg tube TID Continue dilantin 100mg PEG TID SZ percaution, Fall precaution (6) Bed sore Assessment & Plan: 02/04: Evaluated this morning, healed sacral decubitus wound present, continue move patient q2h. 02/03: Continue move patient q2h, continue check patient twice a week. 01/30--> Healed Sacral decubitus wound 01/27: Ecchymosis like bruising around his left hip and buttock area, will continue to monitor closely, monitor cbc closely as well. 01/27: No change, resolved, continue to monitor twice a week. 01/26: No change, continue to monitor twice a week. 01/25: No change, will continue to check twice a week. 3: No change, monitor twice a week 3: Monitor twice a week. 01/21: Resolved, continue to monitor patient twice a week. : sacral ulcer to be evaluated minimum twice per week. 01/19: Sacral ulcer healed, Stage 0 01/15: Sacral ulcer improving considerably, Stage I (one) ulcer observed, non- open continue wound care, sensicare, and medihoney sacral ulcer. Stage II 0.5cm x 1.5cm Continue wound care, sensicare and medihoney. Continue repositioning of patient q2H. dolphin mattress. Heel air boots. (7) Prophylactic measure Assessment & Plan: Lovenox 40 SC daily Pepcid 20 mg PO BID [facility] <Donnell Ying M - Last Filed: 02/05/16 18:43> Objective - Vital Signs/Intake and Output Vital Signs (last 24 hours): Temp Pulse Resp BP Pulse Ox 98.1 F 78 20 128/87 100 02/05/16 14:00 02/05/16 14:00 02/05/16 14:00 02/05/16 14:00 02/05/16 14:00 Intake and Output: 02/05/16 02/05/16 06:59 18:59 Intake Total 2120 Output Total 1175 600 Balance 945 -600 - Medications Medications: Current Medications Aspirin (Aspirin) 325 mg PO DAILY [facility] Last Admin: 11/23/15 09:42 Dose: 325 mg Clopidogrel Bisulfate (Plavix) 75 mg PO DAILY [facility] Last Admin: 02/05/16 10:07 Dose: 75 mg Enoxaparin Sodium (Lovenox) 40 mg SC DAILY [facility] Last Admin: 02/05/16 10:11 Dose: Not Given Lisinopril (Zestril) 5 mg PO DAILY [facility] Last Admin: 02/05/16 10:07 Dose: 5 mg Oxybutynin Chloride (Ditropan Tab) 5 mg PO TID [facility] Last Admin: 02/05/16 17:17 Dose: 5 mg Phenytoin (Dilantin) 100 mg PEG TID [facility] Last Admin: 02/05/16 17:17 Dose: 100 mg Polyethylene Glycol (Miralax) 17 gm PEG BID [facility] Last Admin: 08/21/15 11:26 Dose: Not Given - Labs Labs: 01/31/16 07:26 01/31/16 07:26 PT 10.6 SECONDS (9.7-12.2) 11/24/15 14:10 INR 1.0 11/24/15 14:10 APTT 25 SECONDS (21-34) 11/24/15 14:10 Attending/Attestation - Attestation I have personally seen and examined this patient.: Yes I have fully participated in the care of the patient.: Yes I have reviewed all pertinent clinical information, including history, physical exam and plan: Yes Notes (Text): 02/05/16 18:40 Patient seen and examined at bedside No change in clinical condition Continue care of skin to prevent any DU Tracheostomy and PEG care Turn and position every 2 hours Discussed with the family at bedside
--- NOTE | 2016-02-06 09:29 | CP.PCM.PN ---
<LinJoel H - Last Filed: 02/06/16 16:56> Subjective - Date & Time of Evaluation Date of Evaluation: 02/06/16 Time of Evaluation: 07:15 - Subjective Subjective: Patient seen in room, no acute overnight events per Nursing staff. Objective - Vital Signs/Intake and Output Vital Signs (last 24 hours): Temp Pulse Resp BP Pulse Ox 98.0 F 91 H 20 113/76 99 02/06/16 05:51 02/06/16 05:51 02/06/16 05:51 02/06/16 05:51 02/06/16 05:51 Intake and Output: 02/06/16 02/06/16 06:59 18:59 Intake Total 1050 Output Total 1200 Balance -150 - Medications Medications: Current Medications Aspirin (Aspirin) 325 mg PO DAILY [facility] Last Admin: 11/23/15 09:42 Dose: 325 mg Clopidogrel Bisulfate (Plavix) 75 mg PO DAILY [facility] Last Admin: 02/05/16 10:07 Dose: 75 mg Enoxaparin Sodium (Lovenox) 40 mg SC DAILY [facility] Last Admin: 02/05/16 10:11 Dose: Not Given Lisinopril (Zestril) 5 mg PO DAILY [facility] Last Admin: 02/05/16 10:07 Dose: 5 mg Oxybutynin Chloride (Ditropan Tab) 5 mg PO TID [facility] Last Admin: 02/05/16 17:17 Dose: 5 mg Phenytoin (Dilantin) 100 mg PEG TID [facility] Last Admin: 02/05/16 17:17 Dose: 100 mg Polyethylene Glycol (Miralax) 17 gm PEG BID [facility] Last Admin: 08/21/15 11:26 Dose: Not Given - Labs Labs: 01/31/16 07:26 01/31/16 07:26 PT 10.6 SECONDS (9.7-12.2) 11/24/15 14:10 INR 1.0 11/24/15 14:10 APTT 25 SECONDS (21-34) 11/24/15 14:10 - Constitutional Appears: Chronically Ill - Head Exam Head Exam: ATRAUMATIC, NORMAL INSPECTION, NORMOCEPHALIC - Eye Exam Eye Exam: Normal appearance, PERRL Pupil Exam: NORMAL ACCOMODATION - ENT Exam ENT Exam: Normal Exam - Neck Exam Neck Exam: Normal Inspection - Respiratory Exam Respiratory Exam: Clear to Ausculation Bilateral. absent: Rales, Rhonchi, Wheezes - Cardiovascular Exam Cardiovascular Exam: REGULAR RHYTHM, RRR, +S1, +S2. absent: Gallop, Rubs - GI/Abdominal Exam GI & Abdominal Exam: Soft, Normal Bowel Sounds - Extremities Exam Extremities Exam: Normal Inspection - Skin Skin Exam: Diaphoretic, Pallor, Warm Assessment and Plan - Assessment and Plan (Free Text) Assessment: 1) Anoxic encephalopathy Assessment & Plan: 02/05: No new events, will continue Trach collar in place, peg feeding. 02/04: No new events, continue supportive care. 02/03: New new events, continue supportive care 01/31: No new events, tolerating peg tube feeding, continue supportive care. 01/30--> no new events, non verbal, tolerating Peg tube feeding, supportive management 01/29: no change, peg and trach in place 01/28: No acute changes in mental status, 01/27: No acute changes, patient not in respiratory distress. 3: No acute changes, peg tube in place, operational, running still at 50 cc/ hr at night with a bolus feed during the day 3: No acute changes, peg tube in place, operational, running still at 50 cc/ hr at night with a bolus feed during the day. 3: no acute changes, pet tube in place it is operational. 3: No acute changes in mental status. 3/2: NO acute changes in mental satus, peg tube in place and operational, thick white secretion from trach tube. 3: No acute change in mental status, peg tube operational no signs of blockage or infection(bolus during day and 50cc/hr at night. No acute change in mental status. PEG tube operational, tube feedings running at 50cc/hr at night and bolus feeds during the day 2: PEG tube placed at bedside by Dr. Chan. Abdominal X-ray showed PEG tube in position with contrast entering appropriately. PEG tube approved for use. GCS 8 [id number] patient with trach in place. Pending placement training family in how to take care of patient (2) Respiratory failure Assessment & Plan: 02/04: Trach collar in place, Respiratory did some suction. 02/03: Tolerating trach collar, continue free water fluesh 300 cc q8h. 01/31: Trach Collar in place, continue free water flushes 300 cc q8h. 01/30--> tolerating on Trach Collar, 01/29: trach in place, no resp distress, 01/28: Trach collar in place, no respiratory distress, continue free water flushes 01/27: No respiratory distress, white secretions noted, continue free water flushes at 300 cc q8h. 01/26: Trach collar in place, white secretions still noted, continue free water flushes at 300 cc/hr. 01/25: Trach collar in place, white secretions still noted, continue free water flushes at 300 cc/hr. 01/24: No acute changes, tranch collar in place. Still using free water flushes at 300cc q6h, white secretions still noted. 01/23: Trach collar in place with same oxygen level of 6L, white secretions noted. 01/22: No acute changes, trach collar in place at same level of 6L oxygen, thick white secretions noted. 01/21: No interval change, trach collar in place 6L O2 still, no secretions. no interval change. trach collar at 6L O2. No secretions noted this morning. Trach collar in place. Sputum culture 12/06 + pseudomonas: probably colonization. afebrile. normal white count. CXR without infiltrates. No antibiotics for now per Dr. Armstrong tracheostomy with tube change by Dr. Chan on 11/27/15 CXR 12/08--> Tracheostomy tube appears deviated to the left which may be related to patient positioning. Clinical correlation as this does not project over the midline trachea. Bibasilar atelectasis. Mild stable nodularity at the right lung base. (see full report) Cipro started on 11/30 was stopped on 12/08. clean and dry site saturating well on 7L O2 via trach collar No blood tinged secretions noted Bronchial washing grew Pseudomonas ID consult - Dr. Armstrong - help appreciated Working on getting portable suctioning for family to practice (3) Urinary tract infection Assessment & Plan: 02/04: Baker in place, urine clear. 02/03: Baker in place, urine clear, will change baker every 3 weeks. 01/31: Baker in place, clear color urine, no bleeding, continue to monitor. 01/30--> Baker;s in place, clear color urine, no bleeding, 01/29: baker in place 01/27: Resolved, Baker in place, urine is clear. 01/26: Resolved, Baker in place, 01/25: Resolved, Baker in place, urine is clear color this morning. 01/24: Resolved, Baker in place, urine is a more dark yellow color. 3: Resolved, Baker in place, urine is clear color. 01/22: Resolved no acute changes. 01/21: Resolved no changes afebrile, continue monitoring for fever 01/18: afebrile overnight. WBC 9.5 yesterday. CBC to be done twice weekly, unless increased frequency is clinically indicated 01/14: Off IV Zosyn, continue baker catheter. f/u CBC and monitor VS 01/13: Stop IV Zosyn today. 01/12: Continue IV Zosyn at this time with plan to dc on 01/13 per ID 01/11: continue Zosyn 3.375gm IVPB Q6H (day 5) will discontinue on 01/13/1601/09: Will speak with Dr. Armstrong regarding length of IV antibiotic therapy. In the meantime, continue Zosyn 3.375gm IVPB Q6H. Continue monitoring CBC and for fevers. 01/07: Continue Zosyn 3.375gm IVPB Q6H. Monitor for fevers, Monitor CBC 01/06: urine culture positive for proteus mirabilis (sensitive to tobramycin, zosyn, amikacin, gentamicin). baker catheter to be re-inserted. Switch to Zosyn 3.375gm IVPB Q6H per Dr. Armstrong. 01/05: f/u urine culture sensitivities. Continue Primaxin 500mg IVPB Q8H as per Dr. Armstrong. 01/04: Urine culture + for gram negative rods. spoke with Dr. Armstrong. switched rocephin to primaxin 500mg IVPB Q8H [place] catheter ordered to be used with skin prep to keep it on 01/03: urinalysis had 4+ protein, positive nitrates, 3+ leukocyte esterase. Rocephin 1gm IVPB daily started. Continue [place] catheter. Ditropan 5mg PEG TID for leakage around catheter Urology consult - Dr. Oropeza - help appreciated ID on board - Dr. Armstrong - help appreciated (4) CAD (coronary artery disease) Assessment & Plan: No new events. Cardiac stents on 06/13/15. Continue Lisinopril 5mg PO daily Continue Plavix 75mg PO daily Continue ASA 325mg PO daily-currently held due to recent trach bleeding (5) Seizures Assessment & Plan: no active seizures, continue dilantin 100mg tid through peg tube, continue to monitor patient closely. No active seizure, continue dilantin 100mg through peg tube TID Continue dilantin 100mg PEG TID SZ percaution, Fall precaution (6) Bed sore Assessment & Plan: 02/04: Evaluated this morning, healed sacral decubitus wound present, continue move patient q2h. 02/03: Continue move patient q2h, continue check patient twice a week. 01/30--> Healed Sacral decubitus wound 01/27: Ecchymosis like bruising around his left hip and buttock area, will continue to monitor closely, monitor cbc closely as well. 01/27: No change, resolved, continue to monitor twice a week. 01/26: No change, continue to monitor twice a week. 01/25: No change, will continue to check twice a week. 01/24: No change, monitor twice a week 3: Monitor twice a week. 01/21: Resolved, continue to monitor patient twice a week. : sacral ulcer to be evaluated minimum twice per week. 01/19: Sacral ulcer healed, Stage 0 01/15: Sacral ulcer improving considerably, Stage I (one) ulcer observed, non- open continue wound care, sensicare, and medihoney sacral ulcer. Stage II 0.5cm x 1.5cm Continue wound care, sensicare and medihoney. Continue repositioning of patient q2H. dolphin mattress. Heel air boots. (7) Prophylactic measure Assessment & Plan: Lovenox 40 SC daily Pepcid 20 mg PO BID [facility] <Donnell Ying - Last Filed: 02/07/16 09:40> Objective - Vital Signs/Intake and Output Vital Signs (last 24 hours): Temp Pulse Resp BP Pulse Ox 97.5 F L 85 19 114/71 99 02/07/16 05:35 02/07/16 05:35 02/07/16 05:35 02/07/16 05:35 02/07/16 05:35 Intake and Output: 02/07/16 02/07/16 06:59 18:59 Intake Total 1030 Output Total 1475 Balance -445 - Medications Medications: Current Medications Aspirin (Aspirin) 325 mg PO DAILY [facility] Last Admin: 11/23/15 09:42 Dose: 325 mg Clopidogrel Bisulfate (Plavix) 75 mg PO DAILY [facility] Last Admin: 02/06/16 10:34 Dose: 75 mg Enoxaparin Sodium (Lovenox) 40 mg SC DAILY [facility] Last Admin: 02/06/16 10:35 Dose: Not Given Lisinopril (Zestril) 5 mg PO DAILY [facility] Last Admin: 02/06/16 10:34 Dose: 5 mg Oxybutynin Chloride (Ditropan Tab) 5 mg PO TID [facility] Last Admin: 02/06/16 18:08 Dose: 5 mg Phenytoin (Dilantin) 100 mg PEG TID [facility] Last Admin: 02/06/16 18:08 Dose: 100 mg Polyethylene Glycol (Miralax) 17 gm PEG BID [facility] Last Admin: 08/21/15 11:26 Dose: Not Given - Labs Labs: 01/31/16 07:26 01/31/16 07:26 PT 10.6 SECONDS (9.7-12.2) 11/24/15 14:10 INR 1.0 11/24/15 14:10 APTT 25 SECONDS (21-34) 11/24/15 14:10 Attending/Attestation - Attestation I have personally seen and examined this patient.: Yes I have fully participated in the care of the patient.: Yes I have reviewed all pertinent clinical information, including history, physical exam and plan: Yes Notes (Text): 02/07/16 09:38 Patient was seen and examined at bedside with he resident earlier This is a late computer entry Patient has no change in clinical condition Continue current management Turn and position every 2 hours
[2016-02-06] MEDS: Phenytoin 100 mg/4 ml Oral Susp UD PEG SCH ×3 (10:33→18:08)
[2016-02-06] MEDS: Enoxaparin 40 mg Syringe SC SCH (10:35)
[2016-02-07] MEDS: Enoxaparin 40 mg Syringe SC SCH (10:24)
[2016-02-07] MEDS: Phenytoin 100 mg/4 ml Oral Susp UD PEG SCH ×3 (10:24→16:59)
--- NOTE | 2016-02-07 18:08 | CP.PCM.PN ---
<RileyJoel H - Last Filed: 02/07/16 18:21> Subjective - Date & Time of Evaluation Date of Evaluation: 02/07/16 Time of Evaluation: 07:30 - Subjective Subjective: Patient seen and evaluated in room. Objective - Vital Signs/Intake and Output Vital Signs (last 24 hours): Temp Pulse Resp BP Pulse Ox 98.1 F 82 20 146/88 98 02/07/16 13:22 02/07/16 13:22 02/07/16 13:22 02/07/16 13:22 02/07/16 13:22 Intake and Output: 02/07/16 02/07/16 06:59 18:59 Intake Total 1030 Output Total 1475 600 Balance -445 -600 - Medications Medications: Current Medications Aspirin (Aspirin) 325 mg PO DAILY [facility] Last Admin: 11/23/15 09:42 Dose: 325 mg Clopidogrel Bisulfate (Plavix) 75 mg PO DAILY [facility] Last Admin: 02/07/16 10:24 Dose: 75 mg Enoxaparin Sodium (Lovenox) 40 mg SC DAILY [facility] Last Admin: 02/07/16 10:24 Dose: 40 mg Lisinopril (Zestril) 5 mg PO DAILY [facility] Last Admin: 02/07/16 10:24 Dose: 5 mg Oxybutynin Chloride (Ditropan Tab) 5 mg PO TID [facility] Last Admin: 02/07/16 16:59 Dose: 5 mg Phenytoin (Dilantin) 100 mg PEG TID [facility] Last Admin: 02/07/16 16:59 Dose: 100 mg Polyethylene Glycol (Miralax) 17 gm PEG BID [facility] Last Admin: 08/21/15 11:26 Dose: Not Given - Labs Labs: 01/31/16 07:26 01/31/16 07:26 PT 10.6 SECONDS (9.7-12.2) 11/24/15 14:10 INR 1.0 11/24/15 14:10 APTT 25 SECONDS (21-34) 11/24/15 14:10 Assessment and Plan - Assessment and Plan (Free Text) Assessment: 1) Anoxic encephalopathy Assessment & Plan: 02/06: No new events, patient seen with family in room, reccomend to family to cut families finger nails, keep trach collar in place, patient tolerating peg feeding. 02/05: No new events, will continue Trach collar in place, peg feeding. 02/04: No new events, continue supportive care. 02/03: New new events, continue supportive care 01/31: No new events, tolerating peg tube feeding, continue supportive care. 01/30--> no new events, non verbal, tolerating Peg tube feeding, supportive management 01/29: no change, peg and trach in place 01/28: No acute changes in mental status, 01/27: No acute changes, patient not in respiratory distress. 01/26: No acute changes, peg tube in place, operational, running still at 50 cc/ hr at night with a bolus feed during the day 01/25: No acute changes, peg tube in place, operational, running still at 50 cc/ hr at night with a bolus feed during the day. 01/24: no acute changes, pet tube in place it is operational. 01/23: No acute changes in mental status. 01/22: NO acute changes in mental satus, peg tube in place and operational, thick white secretion from trach tube. 01/21: No acute change in mental status, peg tube operational no signs of blockage or infection(bolus during day and 50cc/hr at night. No acute change in mental status. PEG tube operational, tube feedings running at 50cc/hr at night and bolus feeds during the day 12/28: PEG tube placed at bedside by Dr. Chan. Abdominal X-ray showed PEG tube in position with contrast entering appropriately. PEG tube approved for use. GCS 8 [id number] patient with trach in place. Pending placement training family in how to take care of patient (2) Respiratory failure Assessment & Plan: 02/06: Trach in place, continue ventilator support 02/04: Trach collar in place, Respiratory did some suction. 02/03: Tolerating trach collar, continue free water fluesh 300 cc q8h. 01/31: Trach Collar in place, continue free water flushes 300 cc q8h. 01/30--> tolerating on Trach Collar, 01/29: trach in place, no resp distress, 01/28: Trach collar in place, no respiratory distress, continue free water flushes 01/27: No respiratory distress, white secretions noted, continue free water flushes at 300 cc q8h. 01/26: Trach collar in place, white secretions still noted, continue free water flushes at 300 cc/hr. 01/25: Trach collar in place, white secretions still noted, continue free water flushes at 300 cc/hr. 3: No acute changes, tranch collar in place. Still using free water flushes at 300cc q6h, white secretions still noted. 01/23: Trach collar in place with same oxygen level of 6L, white secretions noted. 3: No acute changes, trach collar in place at same level of 6L oxygen, thick white secretions noted. 01/21: No interval change, trach collar in place 6L O2 still, no secretions. no interval change. trach collar at 6L O2. No secretions noted this morning. Trach collar in place. Sputum culture 12/06 + pseudomonas: probably colonization. afebrile. normal white count. CXR without infiltrates. No antibiotics for now per Dr. Armstrong tracheostomy with tube change by Dr. Chan on 11/27/15 CXR 12/08--> Tracheostomy tube appears deviated to the left which may be related to patient positioning. Clinical correlation as this does not project over the midline trachea. Bibasilar atelectasis. Mild stable nodularity at the right lung base. (see full report) Cipro started on 11/30 was stopped on 12/08. clean and dry site saturating well on 7L O2 via trach collar No blood tinged secretions noted Bronchial washing grew Pseudomonas ID consult - Dr. Armstrong - help appreciated Working on getting portable suctioning for family to practice (3) Urinary tract infection Assessment & Plan: 02/06: plan to change baker catheter tomorrow, urine clear. 02/04: Baker in place, urine clear. 02/03: Baker in place, urine clear, will change baker every 3 weeks. 01/31: Baker in place, clear color urine, no bleeding, continue to monitor. 01/30--> Baker;s in place, clear color urine, no bleeding, 01/29: baker in place 01/27: Resolved, Baker in place, urine is clear. 01/26: Resolved, Baker in place, 01/25: Resolved, Baker in place, urine is clear color this morning. 3: Resolved, Baker in place, urine is a more dark yellow color. 3: Resolved, Baker in place, urine is clear color. 01/22: Resolved no acute changes. 01/21: Resolved no changes afebrile, continue monitoring for fever 01/18: afebrile overnight. WBC 9.5 yesterday. CBC to be done twice weekly, unless increased frequency is clinically indicated 01/14: Off IV Zosyn, continue baker catheter. f/u CBC and monitor VS 01/13: Stop IV Zosyn today. 01/12: Continue IV Zosyn at this time with plan to dc on 01/13 per ID 01/11: continue Zosyn 3.375gm IVPB Q6H (day 5) will discontinue on 01/13/1601/09: Will speak with Dr. Armstrong regarding length of IV antibiotic therapy. In the meantime, continue Zosyn 3.375gm IVPB Q6H. Continue monitoring CBC and for fevers. 01/07: Continue Zosyn 3.375gm IVPB Q6H. Monitor for fevers, Monitor CBC 01/06: urine culture positive for proteus mirabilis (sensitive to tobramycin, zosyn, amikacin, gentamicin). baker catheter to be re-inserted. Switch to Zosyn 3.375gm IVPB Q6H per Dr. Armstrong. 01/05: f/u urine culture sensitivities. Continue Primaxin 500mg IVPB Q8H as per Dr. Armstrong. 01/04: Urine culture + for gram negative rods. spoke with Dr. Armstrong. switched rocephin to primaxin 500mg IVPB Q8H [place] catheter ordered to be used with skin prep to keep it on 01/03: urinalysis had 4+ protein, positive nitrates, 3+ leukocyte esterase. Rocephin 1gm IVPB daily started. Continue [place] catheter. Ditropan 5mg PEG TID for leakage around catheter Urology consult - Dr. Oropeza - help appreciated ID on board - Dr. Armstrong - help appreciated (4) CAD (coronary artery disease) Assessment & Plan: No new events. Cardiac stents on 06/13/15. Continue Lisinopril 5mg PO daily Continue Plavix 75mg PO daily Continue ASA 325mg PO daily-currently held due to recent trach bleeding (5) Seizures Assessment & Plan: no active seizures, continue dilantin 100mg tid through peg tube, continue to monitor patient closely. No active seizure, continue dilantin 100mg through peg tube TID Continue dilantin 100mg PEG TID SZ percaution, Fall precaution (6) Bed sore Assessment & Plan: 02/06: No Change, continue to check every 2 weeks. 02/04: Evaluated this morning, healed sacral decubitus wound present, continue move patient q2h. 02/03: Continue move patient q2h, continue check patient twice a week. 01/30--> Healed Sacral decubitus wound 01/27: Ecchymosis like bruising around his left hip and buttock area, will continue to monitor closely, monitor cbc closely as well. 01/27: No change, resolved, continue to monitor twice a week. 01/26: No change, continue to monitor twice a week. 01/25: No change, will continue to check twice a week. 01/24: No change, monitor twice a week 01/22: Monitor twice a week. 01/21: Resolved, continue to monitor patient twice a week. : sacral ulcer to be evaluated minimum twice per week. 01/19: Sacral ulcer healed, Stage 0 01/15: Sacral ulcer improving considerably, Stage I (one) ulcer observed, non- open continue wound care, sensicare, and medihoney sacral ulcer. Stage II 0.5cm x 1.5cm Continue wound care, sensicare and medihoney. Continue repositioning of patient q2H. dolphin mattress. Heel air boots. (7) Prophylactic measure Assessment & Plan: Lovenox 40 SC daily Pepcid 20 mg PO BID [facility] <Donnell Ying M - Last Filed: 02/07/16 18:52> Objective - Vital Signs/Intake and Output Vital Signs (last 24 hours): Temp Pulse Resp BP Pulse Ox 98.1 F 82 20 146/88 98 02/07/16 13:22 02/07/16 13:22 02/07/16 13:22 02/07/16 13:22 02/07/16 13:22 Intake and Output: 02/07/16 02/07/16 06:59 18:59 Intake Total 1030 1120 Output Total 1475 600 Balance -445 520 - Medications Medications: Current Medications Aspirin (Aspirin) 325 mg PO DAILY [facility] Last Admin: 11/23/15 09:42 Dose: 325 mg Clopidogrel Bisulfate (Plavix) 75 mg PO DAILY [facility] Last Admin: 02/07/16 10:24 Dose: 75 mg Enoxaparin Sodium (Lovenox) 40 mg SC DAILY [facility] Last Admin: 02/07/16 10:24 Dose: 40 mg Lisinopril (Zestril) 5 mg PO DAILY [facility] Last Admin: 02/07/16 10:24 Dose: 5 mg Oxybutynin Chloride (Ditropan Tab) 5 mg PO TID [facility] Last Admin: 02/07/16 16:59 Dose: 5 mg Phenytoin (Dilantin) 100 mg PEG TID [facility] Last Admin: 02/07/16 16:59 Dose: 100 mg Polyethylene Glycol (Miralax) 17 gm PEG BID [facility] Last Admin: 08/21/15 11:26 Dose: Not Given - Labs Labs: 01/31/16 07:26 01/31/16 07:26 PT 10.6 SECONDS (9.7-12.2) 11/24/15 14:10 INR 1.0 11/24/15 14:10 APTT 25 SECONDS (21-34) 11/24/15 14:10 Attending/Attestation - Attestation I have personally seen and examined this patient.: Yes I have fully participated in the care of the patient.: Yes I have reviewed all pertinent clinical information, including history, physical exam and plan: Yes Notes (Text): 02/07/16 18:51 Patient seen and examined at bedside family is present at bedside Continue current management Change Baker's cath in AM Discussed with the family- answered all questions
[2016-02-08 06:31] LABS: ALBUMIN 3.3 g/dL (3.5-5.0); BASO % 0.4 % (0.0-2.0); EOS # 0.7 K/uL (0.0-0.7); EOS % 7.8 % (0.0-4.0); HEMOGLOBIN 12.6 g/dL (12.0-18.0); LYMPH # 1.7 K/uL (1.0-4.3); MEAN CELL VOLUME 92.9 fL (80.0-94.0); MEAN CORPUSCULAR HEMOGLOBIN 30.6 pg (27.0-31.0); MEAN CORPUSCULAR HGB CONC 32.9 g/dL (33.0-37.0); MEAN PLATELET VOLUME 8.5 fL (7.2-11.7); MONO # 0.8 K/uL (0.0-0.8); NEUT % 64.8 % (50.0-75.0); RBC 4.12 Mil/uL (4.40-5.90); RED CELL DISTRIBUTION WIDTH 13.7 % (11.5-14.5); WHITE BLOOD COUNT 9.2 K/uL (4.8-10.8)
[2016-02-08 06:33] LABS: GFR NON-AFRICAN AMERICAN > 60
[2016-02-08 06:34] LABS: ALB/GLOB RATIO 0.9 (1.0-2.1); ALT/SGPT 65 U/L (21-72); AST/SGOT 31 U/L (17-59); BLOOD UREA NITROGEN 25 mg/dL (9-20)
[2016-02-08 06:35] LABS: CALCIUM 8.6 mg/dL (8.4-10.2)
[2016-02-08] MEDS: Enoxaparin 40 mg Syringe SC SCH (09:57)
[2016-02-08] MEDS: Phenytoin 100 mg/4 ml Oral Susp UD PEG SCH ×3 (09:57→17:46)
--- NOTE | 2016-02-08 14:55 | CP.PCM.PN ---
<Merrick Heck - Last Filed: 02/08/16 14:48> Subjective - Date & Time of Evaluation Date of Evaluation: 02/08/16 Time of Evaluation: 09:55 - Subjective Subjective: Pgy2 Hospitalist Resident Patient seen and examined at bedside this AM, along with attending. No acute changes currently with patient - Baker changed earlier this AM per nursing. urine clear - subjective unattainable secondary to anoxic brain injury. no events overnight per nursing. Objective - Vital Signs/Intake and Output Vital Signs (last 24 hours): Temp Pulse Resp BP Pulse Ox 97.2 F L 85 20 120/77 99 02/08/16 14:35 02/08/16 05:30 02/08/16 14:35 02/08/16 14:35 02/08/16 14:35 Intake and Output: 02/08/16 02/08/16 06:59 18:59 Intake Total 1000 Output Total 1000 Balance 0 - Medications Medications: Current Medications Aspirin (Aspirin) 325 mg PO DAILY [facility] Last Admin: 11/23/15 09:42 Dose: 325 mg Clopidogrel Bisulfate (Plavix) 75 mg PO DAILY [facility] Last Admin: 02/08/16 09:57 Dose: 75 mg Enoxaparin Sodium (Lovenox) 40 mg SC DAILY [facility] Last Admin: 02/08/16 09:57 Dose: 40 mg Lisinopril (Zestril) 5 mg PO DAILY [facility] Last Admin: 02/08/16 09:57 Dose: 5 mg Oxybutynin Chloride (Ditropan Tab) 5 mg PO TID [facility] Last Admin: 02/08/16 14:13 Dose: 5 mg Phenytoin (Dilantin) 100 mg PEG TID [facility] Last Admin: 02/08/16 14:13 Dose: 100 mg Polyethylene Glycol (Miralax) 17 gm PEG BID [facility] Last Admin: 08/21/15 11:26 Dose: Not Given - Labs Labs: 02/08/16 06:14 02/08/16 06:14 PT 10.6 SECONDS (9.7-12.2) 11/24/15 14:10 INR 1.0 11/24/15 14:10 APTT 25 SECONDS (21-34) 11/24/15 14:10 - Constitutional Appears: Chronically Ill - Head Exam Head Exam: NORMOCEPHALIC - ENT Exam ENT Exam: Mucous Membranes Dry - Neck Exam Neck Exam: Normal Inspection - Respiratory Exam Respiratory Exam: Clear to Ausculation Bilateral, NORMAL BREATHING PATTERN (on vent) - Cardiovascular Exam Cardiovascular Exam: REGULAR RHYTHM, RRR, +S1, +S2 - GI/Abdominal Exam GI & Abdominal Exam: Soft, Normal Bowel Sounds Additional comments: peg tube in place - Extremities Exam Extremities Exam: Normal Capillary Refill - Neurological Exam Neurological Exam: absent: Alert, Awake Assessment and Plan - Assessment and Plan (Free Text) Assessment: 1) Anoxic encephalopathy Assessment & Plan: 02/07: no acute changes, peg tube in place it is operational. 02/06: No new events, patient seen with family in room, recommend to family to cut families finger nails, keep trach collar in place, patient tolerating peg feeding. 02/05: No new events, will continue Trach collar in place, peg feeding. 02/04: No new events, continue supportive care. 02/03: New new events, continue supportive care 01/31: No new events, tolerating peg tube feeding, continue supportive care. 01/30--> no new events, non verbal, tolerating Peg tube feeding, supportive management 01/29: no change, peg and trach in place 3: No acute changes in mental status, 01/27: No acute changes, patient not in respiratory distress. 3: No acute changes, peg tube in place, operational, running still at 50 cc/ hr at night with a bolus feed during the day 3: No acute changes, peg tube in place, operational, running still at 50 cc/ hr at night with a bolus feed during the day. 3: no acute changes, pet tube in place it is operational. 33: No acute changes in mental status. 3/2: NO acute changes in mental satus, peg tube in place and operational, thick white secretion from trach tube. 3/: No acute change in mental status, peg tube operational no signs of blockage or infection(bolus during day and 50cc/hr at night. No acute change in mental status. PEG tube operational, tube feedings running at 50cc/hr at night and bolus feeds during the day 2: PEG tube placed at bedside by Dr. Chan. Abdominal X-ray showed PEG tube in position with contrast entering appropriately. PEG tube approved for use. GCS 8 [id number] patient with trach in place. Pending placement training family in how to take care of patient (2) Respiratory failure Assessment & Plan: 02/07:Trach collar in place, no respiratory distress, continue free water flushes 02/06: Trach in place, continue ventilator support 02/04: Trach collar in place, Respiratory did some suction. 02/03: Tolerating trach collar, continue free water fluesh 300 cc q8h. 01/31: Trach Collar in place, continue free water flushes 300 cc q8h. 01/30--> tolerating on Trach Collar, 01/29: trach in place, no resp distress, 01/28: Trach collar in place, no respiratory distress, continue free water flushes 01/27: No respiratory distress, white secretions noted, continue free water flushes at 300 cc q8h. 01/26: Trach collar in place, white secretions still noted, continue free water flushes at 300 cc/hr. 01/25: Trach collar in place, white secretions still noted, continue free water flushes at 300 cc/hr. 01/24: No acute changes, tranch collar in place. Still using free water flushes at 300cc q6h, white secretions still noted. 01/23: Trach collar in place with same oxygen level of 6L, white secretions noted. 01/22: No acute changes, trach collar in place at same level of 6L oxygen, thick white secretions noted. 01/21: No interval change, trach collar in place 6L O2 still, no secretions. no interval change. trach collar at 6L O2. No secretions noted this morning. Trach collar in place. Sputum culture 12/06 + pseudomonas: probably colonization. afebrile. normal white count. CXR without infiltrates. No antibiotics for now per Dr. Armstrong tracheostomy with tube change by Dr. Chan on 11/27/15 CXR 12/08--> Tracheostomy tube appears deviated to the left which may be related to patient positioning. Clinical correlation as this does not project over the midline trachea. Bibasilar atelectasis. Mild stable nodularity at the right lung base. (see full report) Cipro started on 11/30 was stopped on 12/08. clean and dry site saturating well on 7L O2 via trach collar No blood tinged secretions noted Bronchial washing grew Pseudomonas ID consult - Dr. Armstrong - help appreciated Working on getting portable suctioning for family to practice (3) Urinary tract infection Assessment & Plan: 02/07: baker changed this AM - urine clear 02/06: plan to change baker catheter tomorrow, urine clear. 02/04: Baker in place, urine clear. 02/03: Baker in place, urine clear, will change baker every 3 weeks. 01/31: Baker in place, clear color urine, no bleeding, continue to monitor. 01/30--> Baker;s in place, clear color urine, no bleeding, 01/29: baker in place 01/27: Resolved, Baker in place, urine is clear. 01/26: Resolved, Baker in place, 01/25: Resolved, Baker in place, urine is clear color this morning. 01/24: Resolved, Baker in place, urine is a more dark yellow color. 01/23: Resolved, Baker in place, urine is clear color. 01/22: Resolved no acute changes. 01/21: Resolved no changes afebrile, continue monitoring for fever 01/18: afebrile overnight. WBC 9.5 yesterday. CBC to be done twice weekly, unless increased frequency is clinically indicated 01/14: Off IV Zosyn, continue baker catheter. f/u CBC and monitor VS 01/13: Stop IV Zosyn today. 01/12: Continue IV Zosyn at this time with plan to dc on 01/13 per ID 01/11: continue Zosyn 3.375gm IVPB Q6H (day 5) will discontinue on 01/13/1601/09: Will speak with Dr. Armstrong regarding length of IV antibiotic therapy. In the meantime, continue Zosyn 3.375gm IVPB Q6H. Continue monitoring CBC and for fevers. 01/07: Continue Zosyn 3.375gm IVPB Q6H. Monitor for fevers, Monitor CBC 01/06: urine culture positive for proteus mirabilis (sensitive to tobramycin, zosyn, amikacin, gentamicin). baker catheter to be re-inserted. Switch to Zosyn 3.375gm IVPB Q6H per Dr. Armstrong. 01/05: f/u urine culture sensitivities. Continue Primaxin 500mg IVPB Q8H as per Dr. Armstrong. 01/04: Urine culture + for gram negative rods. spoke with Dr. Armstrong. switched rocephin to primaxin 500mg IVPB Q8H [place] catheter ordered to be used with skin prep to keep it on 01/03: urinalysis had 4+ protein, positive nitrates, 3+ leukocyte esterase. Rocephin 1gm IVPB daily started. Continue [place] catheter. Ditropan 5mg PEG TID for leakage around catheter Urology consult - Dr. Oropeza - help appreciated ID on board - Dr. Armstrong - help appreciated (4) CAD (coronary artery disease) Assessment & Plan: No new events. Cardiac stents on 06/13/15. Continue Lisinopril 5mg PO daily Continue Plavix 75mg PO daily Continue ASA 325mg PO daily-currently held due to recent trach bleeding (5) Seizures Assessment & Plan: no active seizures, continue dilantin 100mg tid through peg tube, continue to monitor patient closely. No active seizure, continue dilantin 100mg through peg tube TID Continue dilantin 100mg PEG TID SZ percaution, Fall precaution (6) Bed sore Assessment & Plan: 02/07: continue to monitor twice a week. no changes 02/06: No Change, continue to check every 2 weeks. 02/04: Evaluated this morning, healed sacral decubitus wound present, continue move patient q2h. 02/03: Continue move patient q2h, continue check patient twice a week. 01/30--> Healed Sacral decubitus wound 01/27: Ecchymosis like bruising around his left hip and buttock area, will continue to monitor closely, monitor cbc closely as well. 01/27: No change, resolved, continue to monitor twice a week. 01/26: No change, continue to monitor twice a week. 01/25: No change, will continue to check twice a week. 01/24: No change, monitor twice a week 3: Monitor twice a week. 01/21: Resolved, continue to monitor patient twice a week. : sacral ulcer to be evaluated minimum twice per week. 01/19: Sacral ulcer healed, Stage 0 01/15: Sacral ulcer improving considerably, Stage I (one) ulcer observed, non- open continue wound care, sensicare, and medihoney sacral ulcer. Stage II 0.5cm x 1.5cm Continue wound care, sensicare and medihoney. Continue repositioning of patient q2H. dolphin mattress. Heel air boots. (7) Prophylactic measure Assessment & Plan: Lovenox 40 SC daily Pepcid 20 mg PO BID [facility] <Donnell Ying M - Last Filed: 02/08/16 17:53> Objective - Vital Signs/Intake and Output Vital Signs (last 24 hours): Temp Pulse Resp BP Pulse Ox 97.2 F L 85 20 120/77 99 02/08/16 14:35 02/08/16 05:30 02/08/16 14:35 02/08/16 14:35 02/08/16 14:35 Intake and Output: 02/08/16 02/08/16 06:59 18:59 Intake Total 1000 1450 Output Total 1000 500 Balance 0 950 - Medications Medications: Current Medications Aspirin (Aspirin) 325 mg PO DAILY [facility] Last Admin: 11/23/15 09:42 Dose: 325 mg Clopidogrel Bisulfate (Plavix) 75 mg PO DAILY [facility] Last Admin: 02/08/16 09:57 Dose: 75 mg Enoxaparin Sodium (Lovenox) 40 mg SC DAILY [facility] Last Admin: 02/08/16 09:57 Dose: 40 mg Lisinopril (Zestril) 5 mg PO DAILY [facility] Last Admin: 02/08/16 09:57 Dose: 5 mg Oxybutynin Chloride (Ditropan Tab) 5 mg PO TID [facility] Last Admin: 02/08/16 14:13 Dose: 5 mg Phenytoin (Dilantin) 100 mg PEG TID [facility] Last Admin: 02/08/16 14:13 Dose: 100 mg Polyethylene Glycol (Miralax) 17 gm PEG BID [facility] Last Admin: 08/21/15 11:26 Dose: Not Given - Labs Labs: 02/08/16 06:14 02/08/16 06:14 PT 10.6 SECONDS (9.7-12.2) 11/24/15 14:10 INR 1.0 11/24/15 14:10 APTT 25 SECONDS (21-34) 11/24/15 14:10 Attending/Attestation - Attestation I have personally seen and examined this patient.: Yes I have fully participated in the care of the patient.: Yes I have reviewed all pertinent clinical information, including history, physical exam and plan: Yes Notes (Text): 02/08/16 17:53 Patient seen and examined at bedside with the resident. No change in clinical condition. Continue local wound care for decubitus ulcer which is healing. Continue turn and position every 2 hours. Baker's catheter changed today.
--- NOTE | 2016-02-09 03:37 | CP.PCM.PN ---
<RileyJoel H - Last Filed: 02/09/16 08:31> Subjective - Date & Time of Evaluation Date of Evaluation: 02/09/16 Time of Evaluation: 06:30 - Subjective Subjective: Patient seen in room, no acute changes overnight per nursing staff. Nurse also reports changing baker yesterday am. Patient is still non verbal, opens eyes spontaneously though. Non purposeful movement as well. Objective - Vital Signs/Intake and Output Vital Signs (last 24 hours): Temp Pulse Resp BP Pulse Ox 98.1 F 88 18 117/79 99 02/08/16 21:00 02/08/16 21:00 02/08/16 21:00 02/08/16 21:00 02/08/16 21:00 Intake and Output: 02/08/16 02/09/16 18:59 06:59 Intake Total 1450 Output Total 500 1100 Balance 950 -1100 - Medications Medications: Current Medications Aspirin (Aspirin) 325 mg PO DAILY [facility] Last Admin: 11/23/15 09:42 Dose: 325 mg Clopidogrel Bisulfate (Plavix) 75 mg PO DAILY [facility] Last Admin: 02/08/16 09:57 Dose: 75 mg Enoxaparin Sodium (Lovenox) 40 mg SC DAILY [facility] Last Admin: 02/08/16 09:57 Dose: 40 mg Lisinopril (Zestril) 5 mg PO DAILY [facility] Last Admin: 02/08/16 09:57 Dose: 5 mg Oxybutynin Chloride (Ditropan Tab) 5 mg PO TID [facility] Last Admin: 02/08/16 17:46 Dose: 5 mg Phenytoin (Dilantin) 100 mg PEG TID [facility] Last Admin: 02/08/16 17:46 Dose: 100 mg Polyethylene Glycol (Miralax) 17 gm PEG BID [facility] Last Admin: 08/21/15 11:26 Dose: Not Given - Labs Labs: 02/08/16 06:14 02/08/16 06:14 PT 10.6 SECONDS (9.7-12.2) 11/24/15 14:10 INR 1.0 11/24/15 14:10 APTT 25 SECONDS (21-34) 11/24/15 14:10 - Constitutional Appears: Chronically Ill - Head Exam Head Exam: ATRAUMATIC, NORMAL INSPECTION, NORMOCEPHALIC - Eye Exam Eye Exam: Normal appearance, PERRL Pupil Exam: NORMAL ACCOMODATION - ENT Exam ENT Exam: Normal Exam - Neck Exam Neck Exam: Normal Inspection Additional comments: Trach collar in palce - Respiratory Exam Respiratory Exam: Clear to Ausculation Bilateral. absent: Rales, Rhonchi, Wheezes - Cardiovascular Exam Cardiovascular Exam: REGULAR RHYTHM, RRR, +S1, +S2. absent: Gallop, Rubs - GI/Abdominal Exam GI & Abdominal Exam: Soft, Normal Bowel Sounds. absent: Tenderness - Extremities Exam Extremities Exam: Normal Inspection - Back Exam Back Exam: NORMAL INSPECTION - Psychiatric Exam Psychiatric exam: Normal Affect, Normal Mood - Skin Skin Exam: Dry, Normal Color, Warm Assessment and Plan - Assessment and Plan (Free Text) Assessment: 1) Anoxic encephalopathy Assessment & Plan: 02/08: No changes, peg tube in place and operational, trach collar in place as well, no bloody discharge noted, 02/07: no acute changes, peg tube in place it is operational. 02/06: No new events, patient seen with family in room, recommend to family to cut families finger nails, keep trach collar in place, patient tolerating peg feeding. 02/05: No new events, will continue Trach collar in place, peg feeding. 02/04: No new events, continue supportive care. 02/03: New new events, continue supportive care 01/31: No new events, tolerating peg tube feeding, continue supportive care. 01/30--> no new events, non verbal, tolerating Peg tube feeding, supportive management 01/29: no change, peg and trach in place 3: No acute changes in mental status, 01/27: No acute changes, patient not in respiratory distress. 3/6: No acute changes, peg tube in place, operational, running still at 50 cc/ hr at night with a bolus feed during the day 3/5: No acute changes, peg tube in place, operational, running still at 50 cc/ hr at night with a bolus feed during the day. 3/4: no acute changes, pet tube in place it is operational. 3/3: No acute changes in mental status. 3/2: NO acute changes in mental satus, peg tube in place and operational, thick white secretion from trach tube. 3/1: No acute change in mental status, peg tube operational no signs of blockage or infection(bolus during day and 50cc/hr at night. No acute change in mental status. PEG tube operational, tube feedings running at 50cc/hr at night and bolus feeds during the day 12/28: PEG tube placed at bedside by Dr. Chan. Abdominal X-ray showed PEG tube in position with contrast entering appropriately. PEG tube approved for use. GCS 8 [id number] patient with trach in place. Pending placement training family in how to take care of patient (2) Respiratory failure Assessment & Plan: 02/08, Trach collar in place, continue free water flushes 02/07:Trach collar in place, no respiratory distress, continue free water flushes 02/06: Trach in place, continue ventilator support 02/04: Trach collar in place, Respiratory did some suction. 02/03: Tolerating trach collar, continue free water fluesh 300 cc q8h. 01/31: Trach Collar in place, continue free water flushes 300 cc q8h. 01/30--> tolerating on Trach Collar, 01/29: trach in place, no resp distress, 01/28: Trach collar in place, no respiratory distress, continue free water flushes 01/27: No respiratory distress, white secretions noted, continue free water flushes at 300 cc q8h. 01/26: Trach collar in place, white secretions still noted, continue free water flushes at 300 cc/hr. 01/25: Trach collar in place, white secretions still noted, continue free water flushes at 300 cc/hr. 01/24: No acute changes, tranch collar in place. Still using free water flushes at 300cc q6h, white secretions still noted. 01/23: Trach collar in place with same oxygen level of 6L, white secretions noted. 3: No acute changes, trach collar in place at same level of 6L oxygen, thick white secretions noted. 01/21: No interval change, trach collar in place 6L O2 still, no secretions. no interval change. trach collar at 6L O2. No secretions noted this morning. Trach collar in place. Sputum culture 12/06 + pseudomonas: probably colonization. afebrile. normal white count. CXR without infiltrates. No antibiotics for now per Dr. Armstrong tracheostomy with tube change by Dr. Chan on 11/27/15 CXR 12/08--> Tracheostomy tube appears deviated to the left which may be related to patient positioning. Clinical correlation as this does not project over the midline trachea. Bibasilar atelectasis. Mild stable nodularity at the right lung base. (see full report) Cipro started on 11/30 was stopped on 12/08. clean and dry site saturating well on 7L O2 via trach collar No blood tinged secretions noted Bronchial washing grew Pseudomonas ID consult - Dr. Armstrong - help appreciated Working on getting portable suctioning for family to practice (3) Urinary tract infection Assessment & Plan: 02/08: Baker in place, urine clear 02/07: baker changed this AM - urine clear 02/06: plan to change baker catheter tomorrow, urine clear. 02/04: Baker in place, urine clear. 02/03: Baker in place, urine clear, will change baker every 3 weeks. 01/31: Baker in place, clear color urine, no bleeding, continue to monitor. 01/30--> Baker;s in place, clear color urine, no bleeding, 01/29: baker in place 01/27: Resolved, Baker in place, urine is clear. 01/26: Resolved, Baker in place, 3: Resolved, Baker in place, urine is clear color this morning. 3/: Resolved, Baker in place, urine is a more dark yellow color. 3: Resolved, Baker in place, urine is clear color. 01/22: Resolved no acute changes. 01/21: Resolved no changes afebrile, continue monitoring for fever 01/18: afebrile overnight. WBC 9.5 yesterday. CBC to be done twice weekly, unless increased frequency is clinically indicated 01/14: Off IV Zosyn, continue baker catheter. f/u CBC and monitor VS 01/13: Stop IV Zosyn today. 01/12: Continue IV Zosyn at this time with plan to dc on 01/13 per ID 01/11: continue Zosyn 3.375gm IVPB Q6H (day 5) will discontinue on 01/13/1601/09: Will speak with Dr. Armstrong regarding length of IV antibiotic therapy. In the meantime, continue Zosyn 3.375gm IVPB Q6H. Continue monitoring CBC and for fevers. 01/07: Continue Zosyn 3.375gm IVPB Q6H. Monitor for fevers, Monitor CBC 01/06: urine culture positive for proteus mirabilis (sensitive to tobramycin, zosyn, amikacin, gentamicin). baker catheter to be re-inserted. Switch to Zosyn 3.375gm IVPB Q6H per Dr. Armstrong. 01/05: f/u urine culture sensitivities. Continue Primaxin 500mg IVPB Q8H as per Dr. Armstrong. 01/04: Urine culture + for gram negative rods. spoke with Dr. Armstrong. switched rocephin to primaxin 500mg IVPB Q8H [place] catheter ordered to be used with skin prep to keep it on 01/03: urinalysis had 4+ protein, positive nitrates, 3+ leukocyte esterase. Rocephin 1gm IVPB daily started. Continue [place] catheter. Ditropan 5mg PEG TID for leakage around catheter Urology consult - Dr. Oropeza - help appreciated ID on board - Dr. Armstrong - help appreciated (4) CAD (coronary artery disease) Assessment & Plan: No new events. Cardiac stents on 06/13/15. Continue Lisinopril 5mg PO daily Continue Plavix 75mg PO daily Continue ASA 325mg PO daily-currently held due to recent trach bleeding (5) Seizures Assessment & Plan: no active seizures, continue dilantin 100mg tid through peg tube, continue to monitor patient closely. No active seizure, continue dilantin 100mg through peg tube TID Continue dilantin 100mg PEG TID SZ percaution, Fall precaution (6) Bed sore Assessment & Plan: 02/07: continue to monitor twice a week. no changes 02/06: No Change, continue to check every 2 weeks. 02/04: Evaluated this morning, healed sacral decubitus wound present, continue move patient q2h. 02/03: Continue move patient q2h, continue check patient twice a week. 01/30--> Healed Sacral decubitus wound 01/27: Ecchymosis like bruising around his left hip and buttock area, will continue to monitor closely, monitor cbc closely as well. 01/27: No change, resolved, continue to monitor twice a week. 01/26: No change, continue to monitor twice a week. 01/25: No change, will continue to check twice a week. 01/24: No change, monitor twice a week 3: Monitor twice a week. 01/21: Resolved, continue to monitor patient twice a week. : sacral ulcer to be evaluated minimum twice per week. 01/19: Sacral ulcer healed, Stage 0 01/15: Sacral ulcer improving considerably, Stage I (one) ulcer observed, non- open continue wound care, sensicare, and medihoney sacral ulcer. Stage II 0.5cm x 1.5cm Continue wound care, sensicare and medihoney. Continue repositioning of patient q2H. dolphin mattress. Heel air boots. (7) Prophylactic measure Assessment & Plan: Lovenox 40 SC daily Pepcid 20 mg PO BID [facility] <Donnell Ying - Last Filed: 02/09/16 16:03> Objective - Vital Signs/Intake and Output Vital Signs (last 24 hours): Temp Pulse Resp BP Pulse Ox 98.6 F 108 H 20 112/72 98 02/09/16 14:00 02/09/16 14:00 02/09/16 14:00 02/09/16 14:00 02/09/16 14:00 Intake and Output: 02/09/16 02/09/16 06:59 18:59 Intake Total 1100 Output Total 1675 Balance -575 - Medications Medications: Current Medications Aspirin (Aspirin) 325 mg PO DAILY [facility] Last Admin: 11/23/15 09:42 Dose: 325 mg Clopidogrel Bisulfate (Plavix) 75 mg PO DAILY [facility] Last Admin: 02/09/16 10:25 Dose: 75 mg Enoxaparin Sodium (Lovenox) 40 mg SC DAILY [facility] Last Admin: 02/09/16 10:25 Dose: 40 mg Lisinopril (Zestril) 5 mg PO DAILY [facility] Last Admin: 02/09/16 10:25 Dose: 5 mg Oxybutynin Chloride (Ditropan Tab) 5 mg PO TID [facility] Last Admin: 02/09/16 13:50 Dose: 5 mg Phenytoin (Dilantin) 100 mg PEG TID [facility] Last Admin: 02/09/16 13:50 Dose: 100 mg Polyethylene Glycol (Miralax) 17 gm PEG BID [facility] Last Admin: 08/21/15 11:26 Dose: Not Given - Labs Labs: 02/08/16 06:14 02/08/16 06:14 PT 10.6 SECONDS (9.7-12.2) 11/24/15 14:10 INR 1.0 11/24/15 14:10 APTT 25 SECONDS (21-34) 11/24/15 14:10 Attending/Attestation - Attestation I have personally seen and examined this patient.: Yes I have fully participated in the care of the patient.: Yes I have reviewed all pertinent clinical information, including history, physical exam and plan: Yes Notes (Text): 02/09/16 16:02 Patient seen and examined at bedside No change in clinical condition. Continue current management
[2016-02-09] MEDS: Enoxaparin 40 mg Syringe SC SCH (10:25)
[2016-02-09] MEDS: Phenytoin 100 mg/4 ml Oral Susp UD PEG SCH ×3 (10:25→17:02)
--- NOTE | 2016-02-10 07:18 | CP.PCM.PN ---
<Joel Lin H - Last Filed: 02/10/16 09:26> Subjective - Date & Time of Evaluation Date of Evaluation: 02/10/16 Time of Evaluation: 09:00 - Subjective Subjective: Patient seen in room. No changes per nursing staff. Patient is awake, nonverbal. Objective - Vital Signs/Intake and Output Vital Signs (last 24 hours): Temp Pulse Resp BP Pulse Ox 97.6 F 82 20 126/87 98 02/10/16 06:00 02/10/16 06:00 02/10/16 06:00 02/10/16 06:00 02/10/16 06:00 Intake and Output: 02/10/16 02/10/16 06:59 18:59 Output Total 850 Balance -850 - Medications Medications: Current Medications Aspirin (Aspirin) 325 mg PO DAILY [facility] Last Admin: 11/23/15 09:42 Dose: 325 mg Clopidogrel Bisulfate (Plavix) 75 mg PO DAILY [facility] Last Admin: 02/09/16 10:25 Dose: 75 mg Enoxaparin Sodium (Lovenox) 40 mg SC DAILY [facility] Last Admin: 02/09/16 10:25 Dose: 40 mg Lisinopril (Zestril) 5 mg PO DAILY [facility] Last Admin: 02/09/16 10:25 Dose: 5 mg Oxybutynin Chloride (Ditropan Tab) 5 mg PO TID [facility] Last Admin: 02/09/16 17:02 Dose: 5 mg Phenytoin (Dilantin) 100 mg PEG TID [facility] Last Admin: 02/09/16 17:02 Dose: 100 mg Polyethylene Glycol (Miralax) 17 gm PEG BID [facility] Last Admin: 08/21/15 11:26 Dose: Not Given - Labs Labs: 02/08/16 06:14 02/08/16 06:14 PT 10.6 SECONDS (9.7-12.2) 11/24/15 14:10 INR 1.0 11/24/15 14:10 APTT 25 SECONDS (21-34) 11/24/15 14:10 - Constitutional Appears: Chronically Ill - Head Exam Head Exam: ATRAUMATIC, NORMAL INSPECTION, NORMOCEPHALIC - Eye Exam Eye Exam: Normal appearance, PERRL Pupil Exam: NORMAL ACCOMODATION - ENT Exam ENT Exam: Normal Exam - Neck Exam Neck Exam: Normal Inspection - Respiratory Exam Respiratory Exam: Clear to Ausculation Bilateral. absent: Rales, Rhonchi, Wheezes - Cardiovascular Exam Cardiovascular Exam: REGULAR RHYTHM, RRR, +S1, +S2. absent: Gallop, Rubs - GI/Abdominal Exam GI & Abdominal Exam: Soft, Normal Bowel Sounds - Extremities Exam Extremities Exam: Normal Inspection. absent: Pedal Edema - Back Exam Back Exam: NORMAL INSPECTION - Skin Skin Exam: Dry, Normal Color, Warm Assessment and Plan - Assessment and Plan (Free Text) Assessment: 1) Anoxic encephalopathy Assessment & Plan: 02/09: No changes overnight, peg tube in place operational, trach collar in place. 02/08: No changes, peg tube in place and operational, trach collar in place as well, no bloody discharge noted, 02/07: no acute changes, peg tube in place it is operational. 02/06: No new events, patient seen with family in room, recommend to family to cut families finger nails, keep trach collar in place, patient tolerating peg feeding. 02/05: No new events, will continue Trach collar in place, peg feeding. 02/04: No new events, continue supportive care. 02/03: New new events, continue supportive care 01/31: No new events, tolerating peg tube feeding, continue supportive care. 01/30--> no new events, non verbal, tolerating Peg tube feeding, supportive management 01/29: no change, peg and trach in place 3: No acute changes in mental status, 01/27: No acute changes, patient not in respiratory distress. 3/6: No acute changes, peg tube in place, operational, running still at 50 cc/ hr at night with a bolus feed during the day 3/5: No acute changes, peg tube in place, operational, running still at 50 cc/ hr at night with a bolus feed during the day. 3/4: no acute changes, pet tube in place it is operational. 33: No acute changes in mental status. 3/2: NO acute changes in mental satus, peg tube in place and operational, thick white secretion from trach tube. 3/: No acute change in mental status, peg tube operational no signs of blockage or infection(bolus during day and 50cc/hr at night. No acute change in mental status. PEG tube operational, tube feedings running at 50cc/hr at night and bolus feeds during the day 12/28: PEG tube placed at bedside by Dr. Chan. Abdominal X-ray showed PEG tube in position with contrast entering appropriately. PEG tube approved for use. GCS 8 [id number] patient with trach in place. Pending placement training family in how to take care of patient (2) Respiratory failure Assessment & Plan: 02/09: Trach collar in place, continue free water flushes, no bloody discharge 02/08, Trach collar in place, continue free water flushes 02/07:Trach collar in place, no respiratory distress, continue free water flushes 02/06: Trach in place, continue ventilator support 02/04: Trach collar in place, Respiratory did some suction. 02/03: Tolerating trach collar, continue free water fluesh 300 cc q8h. 01/31: Trach Collar in place, continue free water flushes 300 cc q8h. 01/30--> tolerating on Trach Collar, 01/29: trach in place, no resp distress, 01/28: Trach collar in place, no respiratory distress, continue free water flushes 01/27: No respiratory distress, white secretions noted, continue free water flushes at 300 cc q8h. 01/26: Trach collar in place, white secretions still noted, continue free water flushes at 300 cc/hr. 01/25: Trach collar in place, white secretions still noted, continue free water flushes at 300 cc/hr. 01/24: No acute changes, tranch collar in place. Still using free water flushes at 300cc q6h, white secretions still noted. 01/23: Trach collar in place with same oxygen level of 6L, white secretions noted. 3: No acute changes, trach collar in place at same level of 6L oxygen, thick white secretions noted. 01/21: No interval change, trach collar in place 6L O2 still, no secretions. no interval change. trach collar at 6L O2. No secretions noted this morning. Trach collar in place. Sputum culture 12/06 + pseudomonas: probably colonization. afebrile. normal white count. CXR without infiltrates. No antibiotics for now per Dr. Armstrong tracheostomy with tube change by Dr. Chan on 11/27/15 CXR 12/08--> Tracheostomy tube appears deviated to the left which may be related to patient positioning. Clinical correlation as this does not project over the midline trachea. Bibasilar atelectasis. Mild stable nodularity at the right lung base. (see full report) Cipro started on 11/30 was stopped on 12/08. clean and dry site saturating well on 7L O2 via trach collar No blood tinged secretions noted Bronchial washing grew Pseudomonas ID consult - Dr. Armstrong - help appreciated Working on getting portable suctioning for family to practice (3) Urinary tract infection Assessment & Plan: 02/09: Baker in place in urine clear 02/08: Baker in place, urine clear 02/07: baker changed this AM - urine clear 02/06: plan to change baker catheter tomorrow, urine clear. 02/04: Baker in place, urine clear. 02/03: Baker in place, urine clear, will change baker every 3 weeks. 01/31: Baker in place, clear color urine, no bleeding, continue to monitor. 01/30--> Baker;s in place, clear color urine, no bleeding, 01/29: baker in place 01/27: Resolved, Baker in place, urine is clear. 01/26: Resolved, Baker in place, 01/25: Resolved, Baker in place, urine is clear color this morning. 01/24: Resolved, Baker in place, urine is a more dark yellow color. 01/23: Resolved, Baker in place, urine is clear color. 01/22: Resolved no acute changes. 01/21: Resolved no changes afebrile, continue monitoring for fever 01/18: afebrile overnight. WBC 9.5 yesterday. CBC to be done twice weekly, unless increased frequency is clinically indicated 01/14: Off IV Zosyn, continue baker catheter. f/u CBC and monitor VS 01/13: Stop IV Zosyn today. 01/12: Continue IV Zosyn at this time with plan to dc on 01/13 per ID 01/11: continue Zosyn 3.375gm IVPB Q6H (day 5) will discontinue on 01/13/1601/09: Will speak with Dr. Armstrong regarding length of IV antibiotic therapy. In the meantime, continue Zosyn 3.375gm IVPB Q6H. Continue monitoring CBC and for fevers. 01/07: Continue Zosyn 3.375gm IVPB Q6H. Monitor for fevers, Monitor CBC 01/06: urine culture positive for proteus mirabilis (sensitive to tobramycin, zosyn, amikacin, gentamicin). baker catheter to be re-inserted. Switch to Zosyn 3.375gm IVPB Q6H per Dr. Armstrong. 01/05: f/u urine culture sensitivities. Continue Primaxin 500mg IVPB Q8H as per Dr. Armstrong. 01/04: Urine culture + for gram negative rods. spoke with Dr. Armstrong. switched rocephin to primaxin 500mg IVPB Q8H [place] catheter ordered to be used with skin prep to keep it on 01/03: urinalysis had 4+ protein, positive nitrates, 3+ leukocyte esterase. Rocephin 1gm IVPB daily started. Continue [place] catheter. Ditropan 5mg PEG TID for leakage around catheter Urology consult - Dr. Oropeza - help appreciated ID on board - Dr. Armstrong - help appreciated (4) CAD (coronary artery disease) Assessment & Plan: No new events. Cardiac stents on 06/13/15. Continue Lisinopril 5mg PO daily Continue Plavix 75mg PO daily Continue ASA 325mg PO daily-currently held due to recent trach bleeding (5) Seizures Assessment & Plan: 02/09: no active seizure, continue dilantin 100mg tid through peg tube. no active seizures, continue dilantin 100mg tid through peg tube, continue to monitor patient closely. No active seizure, continue dilantin 100mg through peg tube TID Continue dilantin 100mg PEG TID SZ percaution, Fall precaution (6) Bed sore Assessment & Plan: 02/07: continue to monitor twice a week. no changes 02/06: No Change, continue to check every 2 weeks. 02/04: Evaluated this morning, healed sacral decubitus wound present, continue move patient q2h. 02/03: Continue move patient q2h, continue check patient twice a week. 01/30--> Healed Sacral decubitus wound 01/27: Ecchymosis like bruising around his left hip and buttock area, will continue to monitor closely, monitor cbc closely as well. 01/27: No change, resolved, continue to monitor twice a week. 36: No change, continue to monitor twice a week. 35: No change, will continue to check twice a week. 34: No change, monitor twice a week 3/2: Monitor twice a week. /: Resolved, continue to monitor patient twice a week. : sacral ulcer to be evaluated minimum twice per week. 01/19: Sacral ulcer healed, Stage 0 01/15: Sacral ulcer improving considerably, Stage I (one) ulcer observed, non- open continue wound care, sensicare, and medihoney sacral ulcer. Stage II 0.5cm x 1.5cm Continue wound care, sensicare and medihoney. Continue repositioning of patient q2H. dolphin mattress. Heel air boots. (7) Prophylactic measure Assessment & Plan: Lovenox 40 SC daily Pepcid 20 mg PO BID [facility] <Donnell Ying - Last Filed: 02/10/16 14:01> Objective - Vital Signs/Intake and Output Vital Signs (last 24 hours): Temp Pulse Resp BP Pulse Ox 97.6 F 82 20 126/87 98 02/10/16 06:00 02/10/16 08:06 02/10/16 06:00 02/10/16 06:00 02/10/16 06:00 Intake and Output: 02/10/16 02/10/16 06:59 18:59 Output Total 850 Balance -850 - Medications Medications: Current Medications Aspirin (Aspirin) 325 mg PO DAILY [facility] Last Admin: 11/23/15 09:42 Dose: 325 mg Clopidogrel Bisulfate (Plavix) 75 mg PO DAILY [facility] Last Admin: 02/10/16 09:40 Dose: 75 mg Enoxaparin Sodium (Lovenox) 40 mg SC DAILY [facility] Last Admin: 02/10/16 09:41 Dose: 40 mg Lisinopril (Zestril) 5 mg PO DAILY [facility] Last Admin: 02/10/16 09:40 Dose: 5 mg Oxybutynin Chloride (Ditropan Tab) 5 mg PO TID [facility] Last Admin: 02/10/16 13:54 Dose: 5 mg Phenytoin (Dilantin) 100 mg PEG TID [facility] Last Admin: 02/10/16 13:55 Dose: 100 mg Polyethylene Glycol (Miralax) 17 gm PEG BID [facility] Last Admin: 08/21/15 11:26 Dose: Not Given - Labs Labs: 02/08/16 06:14 02/08/16 06:14 PT 10.6 SECONDS (9.7-12.2) 11/24/15 14:10 INR 1.0 11/24/15 14:10 APTT 25 SECONDS (21-34) 11/24/15 14:10 Attending/Attestation - Attestation I have personally seen and examined this patient.: Yes I have fully participated in the care of the patient.: Yes I have reviewed all pertinent clinical information, including history, physical exam and plan: Yes Notes (Text): 02/10/16 14:01 Patient seen and examined at bedside No change in clinical condition. Continue current management. Turn and position every 2 hours. Continue care of the Baker's catheter and tracheostomy. Continue care of PEG tube.
[2016-02-10] MEDS: Phenytoin 100 mg/4 ml Oral Susp UD PEG SCH ×3 (09:40→17:12)
[2016-02-10] MEDS: Enoxaparin 40 mg Syringe SC SCH (09:41)
[2016-02-11] MEDS: Enoxaparin 40 mg Syringe SC SCH (09:56)
[2016-02-11] MEDS: Phenytoin 100 mg/4 ml Oral Susp UD PEG SCH ×3 (09:57→17:37)
--- NOTE | 2016-02-11 10:16 | CP.PCM.PN ---
<Joel Lin H - Last Filed: 02/11/16 17:26> Subjective - Date & Time of Evaluation Date of Evaluation: 02/11/16 Time of Evaluation: 10:00 - Subjective Subjective: Patient seen in room. No acute changes overnight per nursing staff. No changes in mental status. Patient still has spontaneous opening of his eyes and non purposeful movement. Objective - Vital Signs/Intake and Output Vital Signs (last 24 hours): Temp Pulse Resp BP Pulse Ox 98 F 93 H 20 132/86 99 02/11/16 06:08 02/11/16 07:53 02/11/16 06:08 02/11/16 06:08 02/11/16 06:08 Intake and Output: 02/11/16 02/11/16 06:59 18:59 Output Total 950 Balance -950 - Medications Medications: Current Medications Aspirin (Aspirin) 325 mg PO DAILY [facility] Last Admin: 11/23/15 09:42 Dose: 325 mg Clopidogrel Bisulfate (Plavix) 75 mg PO DAILY [facility] Last Admin: 02/11/16 09:57 Dose: 75 mg Enoxaparin Sodium (Lovenox) 40 mg SC DAILY [facility] Last Admin: 02/11/16 09:56 Dose: 40 mg Lisinopril (Zestril) 5 mg PO DAILY [facility] Last Admin: 02/11/16 09:57 Dose: 5 mg Oxybutynin Chloride (Ditropan Tab) 5 mg PO TID [facility] Last Admin: 02/11/16 09:57 Dose: 5 mg Phenytoin (Dilantin) 100 mg PEG TID [facility] Last Admin: 02/11/16 09:57 Dose: 100 mg Polyethylene Glycol (Miralax) 17 gm PEG BID [facility] Last Admin: 08/21/15 11:26 Dose: Not Given - Labs Labs: 02/08/16 06:14 02/08/16 06:14 PT 10.6 SECONDS (9.7-12.2) 11/24/15 14:10 INR 1.0 11/24/15 14:10 APTT 25 SECONDS (21-34) 11/24/15 14:10 - Constitutional Appears: Chronically Ill - Head Exam Head Exam: ATRAUMATIC, NORMAL INSPECTION, NORMOCEPHALIC - Eye Exam Eye Exam: Normal appearance, PERRL Pupil Exam: NORMAL ACCOMODATION - ENT Exam ENT Exam: Normal Exam - Neck Exam Neck Exam: Normal Inspection - Respiratory Exam Respiratory Exam: Clear to Ausculation Bilateral. absent: Rales, Rhonchi, Wheezes - Cardiovascular Exam Cardiovascular Exam: REGULAR RHYTHM, RRR, +S1, +S2. absent: Gallop, Rubs - GI/Abdominal Exam GI & Abdominal Exam: Soft, Normal Bowel Sounds. absent: Tenderness Additional comments: peg tube in place no sign of infection - Extremities Exam Extremities Exam: Normal Inspection - Back Exam Back Exam: NORMAL INSPECTION - Skin Skin Exam: Diaphoretic, Normal Color, Warm Additional comments: some excoriation, healed pressure ulcer. Assessment and Plan - Assessment and Plan (Free Text) Assessment: 1) Anoxic encephalopathy Assessment & Plan: 02/10: No mental status change, patient in bed, tolerating trach collar. 02/09: No changes overnight, peg tube in place operational, trach collar in place. 02/08: No changes, peg tube in place and operational, trach collar in place as well, no bloody discharge noted, 02/07: no acute changes, peg tube in place it is operational. 02/06: No new events, patient seen with family in room, recommend to family to cut families finger nails, keep trach collar in place, patient tolerating peg feeding. 02/05: No new events, will continue Trach collar in place, peg feeding. 02/04: No new events, continue supportive care. 02/03: New new events, continue supportive care 01/31: No new events, tolerating peg tube feeding, continue supportive care. 01/30--> no new events, non verbal, tolerating Peg tube feeding, supportive management 01/29: no change, peg and trach in place 3: No acute changes in mental status, 01/27: No acute changes, patient not in respiratory distress. 3/6: No acute changes, peg tube in place, operational, running still at 50 cc/ hr at night with a bolus feed during the day 3/5: No acute changes, peg tube in place, operational, running still at 50 cc/ hr at night with a bolus feed during the day. 3/4: no acute changes, pet tube in place it is operational. 3/3: No acute changes in mental status. 3/2: NO acute changes in mental satus, peg tube in place and operational, thick white secretion from trach tube. 3: No acute change in mental status, peg tube operational no signs of blockage or infection(bolus during day and 50cc/hr at night. No acute change in mental status. PEG tube operational, tube feedings running at 50cc/hr at night and bolus feeds during the day 2: PEG tube placed at bedside by Dr. Chan. Abdominal X-ray showed PEG tube in position with contrast entering appropriately. PEG tube approved for use. GCS 8 [id number] patient with trach in place. Pending placement training family in how to take care of patient (2) Respiratory failure Assessment & Plan: 02/10: No respiratory distress, trach collar in place, clear mucus discharge, no sign of infection. 02/09: Trach collar in place, continue free water flushes, no bloody discharge 02/08, Trach collar in place, continue free water flushes 02/07:Trach collar in place, no respiratory distress, continue free water flushes 02/06: Trach in place, continue ventilator support 02/04: Trach collar in place, Respiratory did some suction. 02/03: Tolerating trach collar, continue free water fluesh 300 cc q8h. 01/31: Trach Collar in place, continue free water flushes 300 cc q8h. 01/30--> tolerating on Trach Collar, 01/29: trach in place, no resp distress, 01/28: Trach collar in place, no respiratory distress, continue free water flushes 01/27: No respiratory distress, white secretions noted, continue free water flushes at 300 cc q8h. 01/26: Trach collar in place, white secretions still noted, continue free water flushes at 300 cc/hr. 01/25: Trach collar in place, white secretions still noted, continue free water flushes at 300 cc/hr. 3: No acute changes, tranch collar in place. Still using free water flushes at 300cc q6h, white secretions still noted. 3: Trach collar in place with same oxygen level of 6L, white secretions noted. 3/2: No acute changes, trach collar in place at same level of 6L oxygen, thick white secretions noted. 3: No interval change, trach collar in place 6L O2 still, no secretions. no interval change. trach collar at 6L O2. No secretions noted this morning. Trach collar in place. Sputum culture 12/06 + pseudomonas: probably colonization. afebrile. normal white count. CXR without infiltrates. No antibiotics for now per Dr. Armstrong tracheostomy with tube change by Dr. Chan on 11/27/15 CXR 12/08--> Tracheostomy tube appears deviated to the left which may be related to patient positioning. Clinical correlation as this does not project over the midline trachea. Bibasilar atelectasis. Mild stable nodularity at the right lung base. (see full report) Cipro started on 11/30 was stopped on 12/08. clean and dry site saturating well on 7L O2 via trach collar No blood tinged secretions noted Bronchial washing grew Pseudomonas ID consult - Dr. Armstrong - help appreciated Working on getting portable suctioning for family to practice (3) Urinary tract infection Assessment & Plan: 02/10: Baker in place, no sign of leak, urine is clear. 02/09: Baker in place in urine clear 02/08: Baker in place, urine clear 02/07: baker changed this AM - urine clear 02/06: plan to change baker catheter tomorrow, urine clear. 02/04: Baker in place, urine clear. 02/03: Baker in place, urine clear, will change baker every 3 weeks. 01/31: Baker in place, clear color urine, no bleeding, continue to monitor. 01/30--> Baker;s in place, clear color urine, no bleeding, 01/29: baker in place 01/27: Resolved, Baker in place, urine is clear. 01/26: Resolved, Baker in place, 01/25: Resolved, Baker in place, urine is clear color this morning. 01/24: Resolved, Abker in place, urine is a more dark yellow color. 01/23: Resolved, Baker in place, urine is clear color. 01/22: Resolved no acute changes. 01/21: Resolved no changes afebrile, continue monitoring for fever 01/18: afebrile overnight. WBC 9.5 yesterday. CBC to be done twice weekly, unless increased frequency is clinically indicated 01/14: Off IV Zosyn, continue baker catheter. f/u CBC and monitor VS 01/13: Stop IV Zosyn today. 01/12: Continue IV Zosyn at this time with plan to dc on 01/13 per ID 01/11: continue Zosyn 3.375gm IVPB Q6H (day 5) will discontinue on 01/13/1601/09: Will speak with Dr. Armstrong regarding length of IV antibiotic therapy. In the meantime, continue Zosyn 3.375gm IVPB Q6H. Continue monitoring CBC and for fevers. 01/07: Continue Zosyn 3.375gm IVPB Q6H. Monitor for fevers, Monitor CBC 01/06: urine culture positive for proteus mirabilis (sensitive to tobramycin, zosyn, amikacin, gentamicin). baker catheter to be re-inserted. Switch to Zosyn 3.375gm IVPB Q6H per Dr. Armstrong. 01/05: f/u urine culture sensitivities. Continue Primaxin 500mg IVPB Q8H as per Dr. Armstrong. 01/04: Urine culture + for gram negative rods. spoke with Dr. Armstrong. switched rocephin to primaxin 500mg IVPB Q8H [place] catheter ordered to be used with skin prep to keep it on 01/03: urinalysis had 4+ protein, positive nitrates, 3+ leukocyte esterase. Rocephin 1gm IVPB daily started. Continue [place] catheter. Ditropan 5mg PEG TID for leakage around catheter Urology consult - Dr. Oropeza - help appreciated ID on board - Dr. Armstrong - help appreciated (4) CAD (coronary artery disease) Assessment & Plan: No new events. Cardiac stents on 06/13/15. Continue Lisinopril 5mg PO daily Continue Plavix 75mg PO daily Continue ASA 325mg PO daily-currently held due to recent trach bleeding (5) Seizures Assessment & Plan: 02/10: No active seizure, continue dilantin 100mg tid through peg tube. 02/09: no active seizure, continue dilantin 100mg tid through peg tube. no active seizures, continue dilantin 100mg tid through peg tube, continue to monitor patient closely. No active seizure, continue dilantin 100mg through peg tube TID Continue dilantin 100mg PEG TID SZ percaution, Fall precaution (6) Bed sore Assessment & Plan: 02/10: No change, will continue to monitor twice a week. 02/07: continue to monitor twice a week. no changes 02/06: No Change, continue to check every 2 weeks. 02/04: Evaluated this morning, healed sacral decubitus wound present, continue move patient q2h. 02/03: Continue move patient q2h, continue check patient twice a week. 01/30--> Healed Sacral decubitus wound 01/27: Ecchymosis like bruising around his left hip and buttock area, will continue to monitor closely, monitor cbc closely as well. 01/27: No change, resolved, continue to monitor twice a week. 01/26: No change, continue to monitor twice a week. 01/25: No change, will continue to check twice a week. 01/24: No change, monitor twice a week 01/22: Monitor twice a week. 01/21: Resolved, continue to monitor patient twice a week. : sacral ulcer to be evaluated minimum twice per week. 01/19: Sacral ulcer healed, Stage 0 01/15: Sacral ulcer improving considerably, Stage I (one) ulcer observed, non- open continue wound care, sensicare, and medihoney sacral ulcer. Stage II 0.5cm x 1.5cm Continue wound care, sensicare and medihoney. Continue repositioning of patient q2H. dolphin mattress. Heel air boots. (7) Prophylactic measure Assessment & Plan: Lovenox 40 SC daily Pepcid 20 mg PO BID [facility] <Rashel Rodrigues - Last Filed: 02/11/16 18:22> Objective - Vital Signs/Intake and Output Vital Signs (last 24 hours): Temp Pulse Resp BP Pulse Ox 98.2 F 78 20 129/86 100 02/11/16 14:00 02/11/16 14:00 02/11/16 14:00 02/11/16 14:00 02/11/16 14:00 Intake and Output: 02/11/16 02/11/16 06:59 18:59 Intake Total 1000 Output Total 950 500 Balance -950 500 - Medications Medications: Current Medications Aspirin (Aspirin) 325 mg PO DAILY [facility] Last Admin: 11/23/15 09:42 Dose: 325 mg Clopidogrel Bisulfate (Plavix) 75 mg PO DAILY [facility] Last Admin: 02/11/16 09:57 Dose: 75 mg Enoxaparin Sodium (Lovenox) 40 mg SC DAILY [facility] Last Admin: 02/11/16 09:56 Dose: 40 mg Lisinopril (Zestril) 5 mg PO DAILY [facility] Last Admin: 02/11/16 09:57 Dose: 5 mg Oxybutynin Chloride (Ditropan Tab) 5 mg PO TID [facility] Last Admin: 02/11/16 17:37 Dose: 5 mg Phenytoin (Dilantin) 100 mg PEG TID [facility] Last Admin: 02/11/16 17:37 Dose: 100 mg Polyethylene Glycol (Miralax) 17 gm PEG BID [facility] Last Admin: 08/21/15 11:26 Dose: Not Given - Labs Labs: 02/08/16 06:14 02/08/16 06:14 PT 10.6 SECONDS (9.7-12.2) 11/24/15 14:10 INR 1.0 11/24/15 14:10 APTT 25 SECONDS (21-34) 11/24/15 14:10 Attending/Attestation - Attestation I have personally seen and examined this patient.: Yes I have fully participated in the care of the patient.: Yes I have reviewed all pertinent clinical information, including history, physical exam and plan: Yes Notes (Text): 02/11/16 18:21 Patient was seen and examined during the round with the resident. no new events pt has tolerating peg feeding Pt has been on Baker's and changed last week Trach site is clean and pt is not in acute distress pt has no fever, Vitals stable cont supportive management DW pt and updated pt's condition.
[2016-02-12 07:05] LABS: BASO # 0.1 K/uL (0.0-0.2); BASO % 0.6 % (0.0-2.0); EOS # 0.7 K/uL (0.0-0.7); EOS % 8.5 % (0.0-4.0); HEMOGLOBIN 13.1 g/dL (12.0-18.0); LYMPH # 1.9 K/uL (1.0-4.3); LYMPH % 23.3 % (20.0-40.0); MEAN CELL VOLUME 91.2 fL (80.0-94.0); MEAN CORPUSCULAR HEMOGLOBIN 30.8 pg (27.0-31.0); MEAN CORPUSCULAR HGB CONC 33.7 g/dL (33.0-37.0); MEAN PLATELET VOLUME 8.2 fL (7.2-11.7); MONO # 0.8 K/uL (0.0-0.8); MONO % 9.9 % (0.0-10.0); NEUT # 4.7 K/uL (1.8-7.0); NEUT % 57.7 % (50.0-75.0); RBC 4.26 Mil/uL (4.40-5.90); RED CELL DISTRIBUTION WIDTH 14.1 % (11.5-14.5); WHITE BLOOD COUNT 8.1 K/uL (4.8-10.8)
[2016-02-12 07:29] LABS: ALBUMIN 3.4 g/dL (3.5-5.0)
[2016-02-12 07:31] LABS: GFR NON-AFRICAN AMERICAN > 60
[2016-02-12 07:32] LABS: ALB/GLOB RATIO 0.9 (1.0-2.1); ALT/SGPT 53 U/L (21-72); AST/SGOT 29 U/L (17-59); BLOOD UREA NITROGEN 20 mg/dL (9-20); CALCIUM 9.2 mg/dL (8.4-10.2)
[2016-02-12] MEDS: Enoxaparin 40 mg Syringe SC SCH (09:57)
[2016-02-12] MEDS: Phenytoin 100 mg/4 ml Oral Susp UD PEG SCH ×3 (09:57→18:49)
--- NOTE | 2016-02-12 10:50 | CP.PCM.PN ---
<Joel Lin H - Last Filed: 02/12/16 10:47> Subjective - Date & Time of Evaluation Date of Evaluation: 02/12/16 Time of Evaluation: 09:45 - Subjective Subjective: Patient seen in room with medical attending. No changes in mental status, no acute changes overnight. Objective - Vital Signs/Intake and Output Vital Signs (last 24 hours): Temp Pulse Resp BP Pulse Ox 98 F 98 H 20 138/78 98 02/12/16 05:40 02/12/16 07:58 02/12/16 05:40 02/12/16 05:40 02/12/16 05:40 Intake and Output: 02/12/16 02/12/16 06:59 18:59 Intake Total 1000 Output Total 450 Balance 550 - Medications Medications: Current Medications Aspirin (Aspirin) 325 mg PO DAILY [facility] Last Admin: 11/23/15 09:42 Dose: 325 mg Clopidogrel Bisulfate (Plavix) 75 mg PO DAILY [facility] Last Admin: 02/12/16 09:57 Dose: 75 mg Enoxaparin Sodium (Lovenox) 40 mg SC DAILY [facility] Last Admin: 02/12/16 09:57 Dose: 40 mg Lisinopril (Zestril) 5 mg PO DAILY [facility] Last Admin: 02/12/16 09:57 Dose: 5 mg Oxybutynin Chloride (Ditropan Tab) 5 mg PO TID [facility] Last Admin: 02/12/16 09:57 Dose: 5 mg Phenytoin (Dilantin) 100 mg PEG TID [facility] Last Admin: 02/12/16 09:57 Dose: 100 mg Polyethylene Glycol (Miralax) 17 gm PEG BID [facility] Last Admin: 08/21/15 11:26 Dose: Not Given - Labs Labs: 02/12/16 07:01 02/12/16 07:01 PT 10.6 SECONDS (9.7-12.2) 11/24/15 14:10 INR 1.0 11/24/15 14:10 APTT 25 SECONDS (21-34) 11/24/15 14:10 - Constitutional Appears: Chronically Ill - Head Exam Head Exam: NORMAL INSPECTION - Eye Exam Eye Exam: Normal appearance, PERRL Pupil Exam: NORMAL ACCOMODATION - ENT Exam ENT Exam: Normal Exam - Neck Exam Neck Exam: Normal Inspection - Respiratory Exam Respiratory Exam: Clear to Ausculation Bilateral. absent: Rales, Rhonchi, Wheezes - Cardiovascular Exam Cardiovascular Exam: REGULAR RHYTHM, RRR, +S1, +S2. absent: Gallop, Rubs - GI/Abdominal Exam GI & Abdominal Exam: Soft, Normal Bowel Sounds. absent: Tenderness - Extremities Exam Extremities Exam: Normal Inspection. absent: Pedal Edema - Back Exam Back Exam: NORMAL INSPECTION Assessment and Plan - Assessment and Plan (Free Text) Assessment: 1) Anoxic encephalopathy Assessment & Plan: 02/11: No changes in mental status, continue supportive care. 02/10: No mental status change, patient in bed, tolerating trach collar. 02/09: No changes overnight, peg tube in place operational, trach collar in place. 02/08: No changes, peg tube in place and operational, trach collar in place as well, no bloody discharge noted, 02/07: no acute changes, peg tube in place it is operational. 02/06: No new events, patient seen with family in room, recommend to family to cut families finger nails, keep trach collar in place, patient tolerating peg feeding. 02/05: No new events, will continue Trach collar in place, peg feeding. 02/04: No new events, continue supportive care. 02/03: New new events, continue supportive care 01/31: No new events, tolerating peg tube feeding, continue supportive care. 01/30--> no new events, non verbal, tolerating Peg tube feeding, supportive management 01/29: no change, peg and trach in place 3: No acute changes in mental status, 01/27: No acute changes, patient not in respiratory distress. 3/6: No acute changes, peg tube in place, operational, running still at 50 cc/ hr at night with a bolus feed during the day 3/5: No acute changes, peg tube in place, operational, running still at 50 cc/ hr at night with a bolus feed during the day. 3/4: no acute changes, pet tube in place it is operational. 3/3: No acute changes in mental status. 3/2: NO acute changes in mental satus, peg tube in place and operational, thick white secretion from trach tube. 3/1: No acute change in mental status, peg tube operational no signs of blockage or infection(bolus during day and 50cc/hr at night. No acute change in mental status. PEG tube operational, tube feedings running at 50cc/hr at night and bolus feeds during the day 2: PEG tube placed at bedside by Dr. Chan. Abdominal X-ray showed PEG tube in position with contrast entering appropriately. PEG tube approved for use. GCS 8 [id number] patient with trach in place. Pending placement training family in how to take care of patient (2) Respiratory failure Assessment & Plan: 02/11: Patient tolerating trach collar, clear mucus discharge, no sign of infection 02/10: No respiratory distress, trach collar in place, clear mucus discharge, no sign of infection. 02/09: Trach collar in place, continue free water flushes, no bloody discharge 02/08, Trach collar in place, continue free water flushes 02/07:Trach collar in place, no respiratory distress, continue free water flushes 02/06: Trach in place, continue ventilator support 02/04: Trach collar in place, Respiratory did some suction. 02/03: Tolerating trach collar, continue free water fluesh 300 cc q8h. 01/31: Trach Collar in place, continue free water flushes 300 cc q8h. 01/30--> tolerating on Trach Collar, 01/29: trach in place, no resp distress, 01/28: Trach collar in place, no respiratory distress, continue free water flushes 01/27: No respiratory distress, white secretions noted, continue free water flushes at 300 cc q8h. 01/26: Trach collar in place, white secretions still noted, continue free water flushes at 300 cc/hr. 01/25: Trach collar in place, white secretions still noted, continue free water flushes at 300 cc/hr. 3: No acute changes, tranch collar in place. Still using free water flushes at 300cc q6h, white secretions still noted. 3: Trach collar in place with same oxygen level of 6L, white secretions noted. 32: No acute changes, trach collar in place at same level of 6L oxygen, thick white secretions noted. 01/21: No interval change, trach collar in place 6L O2 still, no secretions. no interval change. trach collar at 6L O2. No secretions noted this morning. Trach collar in place. Sputum culture 1/14 + pseudomonas: probably colonization. afebrile. normal white count. CXR without infiltrates. No antibiotics for now per Dr. Armstrong tracheostomy with tube change by Dr. Chan on 11/27/15 CXR 12/08--> Tracheostomy tube appears deviated to the left which may be related to patient positioning. Clinical correlation as this does not project over the midline trachea. Bibasilar atelectasis. Mild stable nodularity at the right lung base. (see full report) Cipro started on 11/30 was stopped on 12/08. clean and dry site saturating well on 7L O2 via trach collar No blood tinged secretions noted Bronchial washing grew Pseudomonas ID consult - Dr. Armstrong - help appreciated Working on getting portable suctioning for family to practice (3) Urinary tract infection Assessment & Plan: 02/11: Baker in place, no sign of leak, urine is clear 02/10: Baker in place, no sign of leak, urine is clear. 02/09: Baker in place in urine clear 02/08: Baker in place, urine clear 02/07: baker changed this AM - urine clear 02/06: plan to change baker catheter tomorrow, urine clear. 02/04: Baker in place, urine clear. 02/03: Baker in place, urine clear, will change baker every 3 weeks. 01/31: Baker in place, clear color urine, no bleeding, continue to monitor. 01/30--> Baker;s in place, clear color urine, no bleeding, 01/29: baker in place 01/27: Resolved, Baker in place, urine is clear. 01/26: Resolved, Baker in place, 01/25: Resolved, Baker in place, urine is clear color this morning. 01/24: Resolved, Baker in place, urine is a more dark yellow color. 01/23: Resolved, Baker in place, urine is clear color. 01/22: Resolved no acute changes. 01/21: Resolved no changes afebrile, continue monitoring for fever 01/18: afebrile overnight. WBC 9.5 yesterday. CBC to be done twice weekly, unless increased frequency is clinically indicated 01/14: Off IV Zosyn, continue baker catheter. f/u CBC and monitor VS 01/13: Stop IV Zosyn today. 01/12: Continue IV Zosyn at this time with plan to dc on 01/13 per ID 01/11: continue Zosyn 3.375gm IVPB Q6H (day 5) will discontinue on 01/13/1601/09: Will speak with Dr. Armstrong regarding length of IV antibiotic therapy. In the meantime, continue Zosyn 3.375gm IVPB Q6H. Continue monitoring CBC and for fevers. 01/07: Continue Zosyn 3.375gm IVPB Q6H. Monitor for fevers, Monitor CBC 01/06: urine culture positive for proteus mirabilis (sensitive to tobramycin, zosyn, amikacin, gentamicin). baker catheter to be re-inserted. Switch to Zosyn 3.375gm IVPB Q6H per Dr. Armstrong. 01/05: f/u urine culture sensitivities. Continue Primaxin 500mg IVPB Q8H as per Dr. Armstrong. 01/04: Urine culture + for gram negative rods. spoke with Dr. Armstrong. switched rocephin to primaxin 500mg IVPB Q8H [place] catheter ordered to be used with skin prep to keep it on 01/03: urinalysis had 4+ protein, positive nitrates, 3+ leukocyte esterase. Rocephin 1gm IVPB daily started. Continue [place] catheter. Ditropan 5mg PEG TID for leakage around catheter Urology consult - Dr. Oropeza - help appreciated ID on board - Dr. Armstrong - help appreciated (4) CAD (coronary artery disease) Assessment & Plan: No new events. Cardiac stents on 06/13/15. Continue Lisinopril 5mg PO daily Continue Plavix 75mg PO daily Continue ASA 325mg PO daily-currently held due to recent trach bleeding (5) Seizures Assessment & Plan: 02/10: No active seizure, continue dilantin 100mg tid through peg tube. 02/09: no active seizure, continue dilantin 100mg tid through peg tube. no active seizures, continue dilantin 100mg tid through peg tube, continue to monitor patient closely. No active seizure, continue dilantin 100mg through peg tube TID Continue dilantin 100mg PEG TID SZ percaution, Fall precaution (6) Bed sore Assessment & Plan: 02/11: Healed pressure ulcer, skin excoration noted, will continue move patient q2h. 02/10: No change, will continue to monitor twice a week. 02/07: continue to monitor twice a week. no changes 02/06: No Change, continue to check every 2 weeks. 02/04: Evaluated this morning, healed sacral decubitus wound present, continue move patient q2h. 02/03: Continue move patient q2h, continue check patient twice a week. 01/30--> Healed Sacral decubitus wound 01/27: Ecchymosis like bruising around his left hip and buttock area, will continue to monitor closely, monitor cbc closely as well. 01/27: No change, resolved, continue to monitor twice a week. 01/26: No change, continue to monitor twice a week. 01/25: No change, will continue to check twice a week. 01/24: No change, monitor twice a week 01/22: Monitor twice a week. 01/21: Resolved, continue to monitor patient twice a week. : sacral ulcer to be evaluated minimum twice per week. 01/19: Sacral ulcer healed, Stage 0 01/15: Sacral ulcer improving considerably, Stage I (one) ulcer observed, non- open continue wound care, sensicare, and medihoney sacral ulcer. Stage II 0.5cm x 1.5cm Continue wound care, sensicare and medihoney. Continue repositioning of patient q2H. dolphin mattress. Heel air boots. (7) Prophylactic measure Assessment & Plan: Lovenox 40 SC daily Pepcid 20 mg PO BID [facility] <Rashel Rodrigues - Last Filed: 02/12/16 16:21> Objective - Vital Signs/Intake and Output Vital Signs (last 24 hours): Temp Pulse Resp BP Pulse Ox 98.2 F 95 H 20 110/72 99 02/12/16 14:46 02/12/16 14:46 02/12/16 14:46 02/12/16 14:46 02/12/16 14:46 Intake and Output: 02/12/16 02/12/16 06:59 18:59 Intake Total 1000 Output Total 450 Balance 550 - Medications Medications: Current Medications Aspirin (Aspirin) 325 mg PO DAILY [facility] Last Admin: 11/23/15 09:42 Dose: 325 mg Clopidogrel Bisulfate (Plavix) 75 mg PO DAILY [facility] Last Admin: 02/12/16 09:57 Dose: 75 mg Enoxaparin Sodium (Lovenox) 40 mg SC DAILY [facility] Last Admin: 02/12/16 09:57 Dose: 40 mg Lisinopril (Zestril) 5 mg PO DAILY [facility] Last Admin: 02/12/16 09:57 Dose: 5 mg Oxybutynin Chloride (Ditropan Tab) 5 mg PO TID [facility] Last Admin: 02/12/16 13:05 Dose: 5 mg Phenytoin (Dilantin) 100 mg PEG TID [facility] Last Admin: 02/12/16 13:05 Dose: 100 mg Polyethylene Glycol (Miralax) 17 gm PEG BID [facility] Last Admin: 08/21/15 11:26 Dose: Not Given - Labs Labs: 02/12/16 07:01 02/12/16 07:01 PT 10.6 SECONDS (9.7-12.2) 11/24/15 14:10 INR 1.0 11/24/15 14:10 APTT 25 SECONDS (21-34) 11/24/15 14:10 Attending/Attestation - Attestation I have personally seen and examined this patient.: Yes I have fully participated in the care of the patient.: Yes I have reviewed all pertinent clinical information, including history, physical exam and plan: Yes Notes (Text): 02/12/16 16:20 Patient was seen and examined during the round with the resident. pt has no new events cont supportive mx Trach site clean and dry Peg site is also clean and dry
[2016-02-13] MEDS: Phenytoin 100 mg/4 ml Oral Susp UD PEG SCH ×3 (09:28→19:05)
[2016-02-13] MEDS: Enoxaparin 40 mg Syringe SC SCH (09:30)
--- NOTE | 2016-02-13 11:43 | RAD ---
PROCEDURE: CHEST RADIOGRAPH, 1 VIEW HISTORY: Rahles on physical exam. COMPARISON: Comparison is made with multiple prior exams, most recently 12/28/2015 FINDINGS: Patient's chin overlies the apices limiting evaluation. LUNGS: Tracheostomy tube is again seen in satisfactory positioning. There is linear atelectasis at the bases bilaterally. PLEURA: No pleural effusion or pneumothorax. CARDIOVASCULAR: Cardiomegaly. Uncoiled aorta. OSSEOUS STRUCTURES: No significant abnormalities. VISUALIZED UPPER ABDOMEN: Normal. OTHER FINDINGS: None. IMPRESSION: Linear atelectasis at the bases. Cardiomegaly.
--- NOTE | 2016-02-13 14:01 | CP.PCM.PN ---
<Joel Lin H - Last Filed: 02/13/16 13:56> Subjective - Date & Time of Evaluation Date of Evaluation: 02/13/16 Time of Evaluation: 09:30 - Subjective Subjective: Patient seen in room, he was moved last night to 3rd floor. He was asleep in the room. Easily awakens with verbal sounds. No change in mental status from last night. Patient still non verbal Objective - Vital Signs/Intake and Output Vital Signs (last 24 hours): Temp Pulse Resp BP Pulse Ox 97.8 F 69 20 157/94 H 96 02/13/16 08:00 02/13/16 08:00 02/13/16 08:00 02/13/16 08:00 02/13/16 08:00 Intake and Output: 02/13/16 02/13/16 06:59 18:59 Intake Total 240 Output Total 1200 Balance -960 - Medications Medications: Current Medications Aspirin (Aspirin) 325 mg PO DAILY [facility] Last Admin: 11/23/15 09:42 Dose: 325 mg Clopidogrel Bisulfate (Plavix) 75 mg PO DAILY [facility] Last Admin: 02/13/16 09:30 Dose: 75 mg Enoxaparin Sodium (Lovenox) 40 mg SC DAILY [facility] Last Admin: 02/13/16 09:30 Dose: 40 mg Lisinopril (Zestril) 5 mg PO DAILY [facility] Last Admin: 02/13/16 09:29 Dose: 5 mg Oxybutynin Chloride (Ditropan Tab) 5 mg PO TID [facility] Last Admin: 02/13/16 09:30 Dose: 5 mg Phenytoin (Dilantin) 100 mg PEG TID [facility] Last Admin: 02/13/16 09:28 Dose: 100 mg Polyethylene Glycol (Miralax) 17 gm PEG BID [facility] Last Admin: 08/21/15 11:26 Dose: Not Given - Labs Labs: 02/12/16 07:01 02/12/16 07:01 PT 10.6 SECONDS (9.7-12.2) 11/24/15 14:10 INR 1.0 11/24/15 14:10 APTT 25 SECONDS (21-34) 11/24/15 14:10 - Constitutional Appears: Chronically Ill - Head Exam Head Exam: ATRAUMATIC, NORMAL INSPECTION, NORMOCEPHALIC - Eye Exam Eye Exam: Normal appearance, PERRL Pupil Exam: NORMAL ACCOMODATION - ENT Exam ENT Exam: Normal Exam - Neck Exam Neck Exam: Normal Inspection - Respiratory Exam Respiratory Exam: Rales. absent: Clear to Ausculation Bilateral, Wheezes - Cardiovascular Exam Cardiovascular Exam: REGULAR RHYTHM, RRR, +S1, +S2. absent: Gallop, Rubs - GI/Abdominal Exam GI & Abdominal Exam: Soft, Normal Bowel Sounds. absent: Tenderness - Extremities Exam Extremities Exam: Normal Inspection - Back Exam Back Exam: NORMAL INSPECTION - Psychiatric Exam Psychiatric exam: Normal Affect, Normal Mood - Skin Skin Exam: Dry, Normal Color, Warm Assessment and Plan - Assessment and Plan (Free Text) Assessment: 1) Anoxic encephalopathy Assessment & Plan: 02/12: CXR today read as: Linear atelectasis at the bases. Cardiomegaly, CXR ordered because the patient's breath sounds were not clear, he is tolerating trach ventilator support, no change in mental status. 02/11: No changes in mental status, continue supportive care. 02/10: No mental status change, patient in bed, tolerating trach collar. 02/09: No changes overnight, peg tube in place operational, trach collar in place. 02/08: No changes, peg tube in place and operational, trach collar in place as well, no bloody discharge noted, 02/07: no acute changes, peg tube in place it is operational. 02/06: No new events, patient seen with family in room, recommend to family to cut families finger nails, keep trach collar in place, patient tolerating peg feeding. 02/05: No new events, will continue Trach collar in place, peg feeding. 02/04: No new events, continue supportive care. 02/03: New new events, continue supportive care 01/31: No new events, tolerating peg tube feeding, continue supportive care. 01/30--> no new events, non verbal, tolerating Peg tube feeding, supportive management 01/29: no change, peg and trach in place 01/28: No acute changes in mental status, 01/27: No acute changes, patient not in respiratory distress. 01/26: No acute changes, peg tube in place, operational, running still at 50 cc/ hr at night with a bolus feed during the day 3: No acute changes, peg tube in place, operational, running still at 50 cc/ hr at night with a bolus feed during the day. 3: no acute changes, pet tube in place it is operational. 01/23: No acute changes in mental status. 3: NO acute changes in mental satus, peg tube in place and operational, thick white secretion from trach tube. 01/21: No acute change in mental status, peg tube operational no signs of blockage or infection(bolus during day and 50cc/hr at night. No acute change in mental status. PEG tube operational, tube feedings running at 50cc/hr at night and bolus feeds during the day 12/28: PEG tube placed at bedside by Dr. Chan. Abdominal X-ray showed PEG tube in position with contrast entering appropriately. PEG tube approved for use. GCS 8 [id number] patient with trach in place. Pending placement training family in how to take care of patient (2) Respiratory failure Assessment & Plan: 02/12: CXR today read as: Linear atelectasis at the bases. Cardiomegaly, CXR ordered because the patient's breath sounds were not clear. 02/11: Patient tolerating trach collar, clear mucus discharge, no sign of infection 02/10: No respiratory distress, trach collar in place, clear mucus discharge, no sign of infection. 02/09: Trach collar in place, continue free water flushes, no bloody discharge 02/08, Trach collar in place, continue free water flushes 02/07:Trach collar in place, no respiratory distress, continue free water flushes 02/06: Trach in place, continue ventilator support 02/04: Trach collar in place, Respiratory did some suction. 02/03: Tolerating trach collar, continue free water fluesh 300 cc q8h. 01/31: Trach Collar in place, continue free water flushes 300 cc q8h. 01/30--> tolerating on Trach Collar, 01/29: trach in place, no resp distress, 01/28: Trach collar in place, no respiratory distress, continue free water flushes 3: No respiratory distress, white secretions noted, continue free water flushes at 300 cc q8h. 3: Trach collar in place, white secretions still noted, continue free water flushes at 300 cc/hr. 01/25: Trach collar in place, white secretions still noted, continue free water flushes at 300 cc/hr. 01/24: No acute changes, tranch collar in place. Still using free water flushes at 300cc q6h, white secretions still noted. 01/23: Trach collar in place with same oxygen level of 6L, white secretions noted. 01/22: No acute changes, trach collar in place at same level of 6L oxygen, thick white secretions noted. 01/21: No interval change, trach collar in place 6L O2 still, no secretions. no interval change. trach collar at 6L O2. No secretions noted this morning. Trach collar in place. Sputum culture 12/06 + pseudomonas: probably colonization. afebrile. normal white count. CXR without infiltrates. No antibiotics for now per Dr. Armstrong tracheostomy with tube change by Dr. Chan on 11/27/15 CXR 12/08--> Tracheostomy tube appears deviated to the left which may be related to patient positioning. Clinical correlation as this does not project over the midline trachea. Bibasilar atelectasis. Mild stable nodularity at the right lung base. (see full report) Cipro started on 11/30 was stopped on 12/08. clean and dry site saturating well on 7L O2 via trach collar No blood tinged secretions noted Bronchial washing grew Pseudomonas ID consult - Dr. Armstrong - help appreciated Working on getting portable suctioning for family to practice (3) Urinary tract infection Assessment & Plan: 02/12: Baker in place, no sign of leak, urine is clear. 02/11: Baker in place, no sign of leak, urine is clear 02/10: Baker in place, no sign of leak, urine is clear. 02/09: Baker in place in urine clear 02/08: Baker in place, urine clear 02/07: baker changed this AM - urine clear 02/06: plan to change baker catheter tomorrow, urine clear. 02/04: Baker in place, urine clear. 02/03: Baker in place, urine clear, will change baker every 3 weeks. 01/31: Baker in place, clear color urine, no bleeding, continue to monitor. 01/30--> Baker;s in place, clear color urine, no bleeding, 01/29: baker in place 01/27: Resolved, Baker in place, urine is clear. 3: Resolved, Baker in place, 3: Resolved, Baker in place, urine is clear color this morning. 3: Resolved, Baker in place, urine is a more dark yellow color. 3: Resolved, Baker in place, urine is clear color. 01/22: Resolved no acute changes. 01/21: Resolved no changes afebrile, continue monitoring for fever 01/18: afebrile overnight. WBC 9.5 yesterday. CBC to be done twice weekly, unless increased frequency is clinically indicated 01/14: Off IV Zosyn, continue baker catheter. f/u CBC and monitor VS 01/13: Stop IV Zosyn today. 01/12: Continue IV Zosyn at this time with plan to dc on 01/13 per ID 01/11: continue Zosyn 3.375gm IVPB Q6H (day 5) will discontinue on 01/13/1601/09: Will speak with Dr. Armstrong regarding length of IV antibiotic therapy. In the meantime, continue Zosyn 3.375gm IVPB Q6H. Continue monitoring CBC and for fevers. 01/07: Continue Zosyn 3.375gm IVPB Q6H. Monitor for fevers, Monitor CBC 01/06: urine culture positive for proteus mirabilis (sensitive to tobramycin, zosyn, amikacin, gentamicin). baker catheter to be re-inserted. Switch to Zosyn 3.375gm IVPB Q6H per Dr. Armstrong. 01/05: f/u urine culture sensitivities. Continue Primaxin 500mg IVPB Q8H as per Dr. Armstrong. 01/04: Urine culture + for gram negative rods. spoke with Dr. Armstrong. switched rocephin to primaxin 500mg IVPB Q8H [place] catheter ordered to be used with skin prep to keep it on 01/03: urinalysis had 4+ protein, positive nitrates, 3+ leukocyte esterase. Rocephin 1gm IVPB daily started. Continue [place] catheter. Ditropan 5mg PEG TID for leakage around catheter Urology consult - Dr. Oropeza - help appreciated ID on board - Dr. Armstrong - help appreciated (4) CAD (coronary artery disease) Assessment & Plan: No new events. Cardiac stents on 06/13/15. Continue Lisinopril 5mg PO daily Continue Plavix 75mg PO daily Continue ASA 325mg PO daily-currently held due to recent trach bleeding (5) Seizures Assessment & Plan: 02/10: No active seizure, continue dilantin 100mg tid through peg tube. 02/09: no active seizure, continue dilantin 100mg tid through peg tube. no active seizures, continue dilantin 100mg tid through peg tube, continue to monitor patient closely. No active seizure, continue dilantin 100mg through peg tube TID Continue dilantin 100mg PEG TID SZ percaution, Fall precaution (6) Bed sore Assessment & Plan: 02/11: Healed pressure ulcer, skin excoration noted, will continue move patient q2h. 02/10: No change, will continue to monitor twice a week. 02/07: continue to monitor twice a week. no changes 02/06: No Change, continue to check every 2 weeks. 02/04: Evaluated this morning, healed sacral decubitus wound present, continue move patient q2h. 02/03: Continue move patient q2h, continue check patient twice a week. 01/30--> Healed Sacral decubitus wound 01/27: Ecchymosis like bruising around his left hip and buttock area, will continue to monitor closely, monitor cbc closely as well. 01/27: No change, resolved, continue to monitor twice a week. 01/26: No change, continue to monitor twice a week. 01/25: No change, will continue to check twice a week. 3: No change, monitor twice a week 3: Monitor twice a week. 01/21: Resolved, continue to monitor patient twice a week. : sacral ulcer to be evaluated minimum twice per week. 01/19: Sacral ulcer healed, Stage 0 01/15: Sacral ulcer improving considerably, Stage I (one) ulcer observed, non- open continue wound care, sensicare, and medihoney sacral ulcer. Stage II 0.5cm x 1.5cm Continue wound care, sensicare and medihoney. Continue repositioning of patient q2H. dolphin mattress. Heel air boots. (7) Prophylactic measure Assessment & Plan: Lovenox 40 SC daily Pepcid 20 mg PO BID SCDs <Rashel Rodrigues - Last Filed: 02/13/16 15:49> Objective - Vital Signs/Intake and Output Vital Signs (last 24 hours): Temp Pulse Resp BP Pulse Ox 97.8 F 69 20 157/94 H 96 02/13/16 08:00 02/13/16 08:00 02/13/16 08:00 02/13/16 08:00 02/13/16 08:00 Intake and Output: 02/13/16 02/13/16 06:59 18:59 Intake Total 240 480 Output Total 1200 400 Balance -960 80 - Medications Medications: Current Medications Aspirin (Aspirin) 325 mg PO DAILY [facility] Last Admin: 11/23/15 09:42 Dose: 325 mg Clopidogrel Bisulfate (Plavix) 75 mg PO DAILY [facility] Last Admin: 02/13/16 09:30 Dose: 75 mg Enoxaparin Sodium (Lovenox) 40 mg SC DAILY [facility] Last Admin: 02/13/16 09:30 Dose: 40 mg Lisinopril (Zestril) 5 mg PO DAILY [facility] Last Admin: 02/13/16 09:29 Dose: 5 mg Oxybutynin Chloride (Ditropan Tab) 5 mg PO TID [facility] Last Admin: 02/13/16 14:30 Dose: 5 mg Phenytoin (Dilantin) 100 mg PEG TID [facility] Last Admin: 02/13/16 14:30 Dose: 100 mg Polyethylene Glycol (Miralax) 17 gm PEG BID [facility] Last Admin: 08/21/15 11:26 Dose: Not Given - Labs Labs: 02/12/16 07:01 02/12/16 07:01 PT 10.6 SECONDS (9.7-12.2) 11/24/15 14:10 INR 1.0 11/24/15 14:10 APTT 25 SECONDS (21-34) 11/24/15 14:10 Attending/Attestation - Attestation I have personally seen and examined this patient.: Yes I have fully participated in the care of the patient.: Yes I have reviewed all pertinent clinical information, including history, physical exam and plan: Yes Notes (Text): 02/13/16 15:49 Patient was seen and examined during the round with the resident. pt has no fever, no new events cont supportive mx
[2016-02-14] MEDS: Enoxaparin 40 mg Syringe SC SCH (10:48)
[2016-02-14] MEDS: POLYETHYLENE GLYCOL 3350 17 GM/Dose PACKET PEG SCH (10:48)
[2016-02-14] MEDS: Phenytoin 100 mg/4 ml Oral Susp UD PEG SCH ×3 (10:49→17:13)
--- NOTE | 2016-02-14 13:45 | CP.PCM.PN ---
<Rashel Rodrigues - Last Filed: 02/14/16 15:54> Objective - Vital Signs/Intake and Output Vital Signs (last 24 hours): Temp Pulse Resp BP Pulse Ox 99.4 F 91 H 20 128/82 95 02/14/16 07:38 02/14/16 07:38 02/14/16 07:38 02/14/16 07:38 02/14/16 07:38 Intake and Output: 02/14/16 02/14/16 06:59 18:59 Intake Total 1600 800 Output Total 1400 350 Balance 200 450 - Medications Medications: Current Medications Aspirin (Aspirin) 325 mg PO DAILY [facility] Last Admin: 11/23/15 09:42 Dose: 325 mg Clopidogrel Bisulfate (Plavix) 75 mg PO DAILY [facility] Last Admin: 02/14/16 10:52 Dose: 75 mg Enoxaparin Sodium (Lovenox) 40 mg SC DAILY [facility] Last Admin: 02/14/16 10:48 Dose: 40 mg Lisinopril (Zestril) 5 mg PO DAILY [facility] Last Admin: 02/14/16 10:52 Dose: 5 mg Oxybutynin Chloride (Ditropan Tab) 5 mg PO TID [facility] Last Admin: 02/14/16 14:38 Dose: 5 mg Phenytoin (Dilantin) 100 mg PEG TID [facility] Last Admin: 02/14/16 14:38 Dose: 100 mg Polyethylene Glycol (Miralax) 17 gm PEG BID [facility] Last Admin: 02/14/16 10:48 Dose: Not Given - Labs Labs: 02/12/16 07:01 02/12/16 07:01 PT 10.6 SECONDS (9.7-12.2) 11/24/15 14:10 INR 1.0 11/24/15 14:10 APTT 25 SECONDS (21-34) 11/24/15 14:10 Attending/Attestation - Attestation I have personally seen and examined this patient.: Yes I have fully participated in the care of the patient.: Yes I have reviewed all pertinent clinical information, including history, physical exam and plan: Yes Notes (Text): 02/14/16 15:54 Patient was seen and examined during the round with the resident. co new events cont supportive mx <Joel Lin - Last Filed: 02/14/16 16:11> Subjective - Date & Time of Evaluation Date of Evaluation: 02/14/16 Time of Evaluation: 10:00 - Subjective Subjective: Patient seen in room. No acute changes since last night per nursing staff. No acute mental status change. Objective - Vital Signs/Intake and Output Vital Signs (last 24 hours): Temp Pulse Resp BP Pulse Ox 99.4 F 91 H 20 128/82 95 02/14/16 07:38 02/14/16 07:38 02/14/16 07:38 02/14/16 07:38 02/14/16 07:38 Intake and Output: 02/14/16 02/14/16 06:59 18:59 Intake Total 1600 Output Total 1400 Balance 200 - Medications Medications: Current Medications Aspirin (Aspirin) 325 mg PO DAILY [facility] Last Admin: 11/23/15 09:42 Dose: 325 mg Clopidogrel Bisulfate (Plavix) 75 mg PO DAILY [facility] Last Admin: 02/14/16 10:52 Dose: 75 mg Enoxaparin Sodium (Lovenox) 40 mg SC DAILY [facility] Last Admin: 02/14/16 10:48 Dose: 40 mg Lisinopril (Zestril) 5 mg PO DAILY [facility] Last Admin: 02/14/16 10:52 Dose: 5 mg Oxybutynin Chloride (Ditropan Tab) 5 mg PO TID [facility] Last Admin: 02/14/16 10:49 Dose: 5 mg Phenytoin (Dilantin) 100 mg PEG TID [facility] Last Admin: 02/14/16 10:49 Dose: 100 mg Polyethylene Glycol (Miralax) 17 gm PEG BID [facility] Last Admin: 02/14/16 10:48 Dose: Not Given - Labs Labs: 02/12/16 07:01 02/12/16 07:01 PT 10.6 SECONDS (9.7-12.2) 11/24/15 14:10 INR 1.0 11/24/15 14:10 APTT 25 SECONDS (21-34) 11/24/15 14:10 - Constitutional Appears: Non-toxic, No Acute Distress - Head Exam Head Exam: ATRAUMATIC, NORMAL INSPECTION, NORMOCEPHALIC - Eye Exam Eye Exam: Normal appearance, PERRL Pupil Exam: NORMAL ACCOMODATION - ENT Exam ENT Exam: Normal Exam - Neck Exam Neck Exam: Normal Inspection Additional comments: tolerating trach - Respiratory Exam Respiratory Exam: Clear to Ausculation Bilateral. absent: Rales, Rhonchi, Wheezes - Cardiovascular Exam Cardiovascular Exam: REGULAR RHYTHM, RRR, +S1, +S2. absent: Gallop, Rubs - GI/Abdominal Exam GI & Abdominal Exam: Soft, Normal Bowel Sounds - Extremities Exam Extremities Exam: Normal Inspection. absent: Pedal Edema Assessment and Plan - Assessment and Plan (Free Text) Assessment: Assessment: 1) Anoxic encephalopathy Assessment & Plan: 02/13: Patient seen in room, tolerating trach collar, no acute mental changes. 02/12: CXR today read as: Linear atelectasis at the bases. Cardiomegaly, CXR ordered because the patient's breath sounds were not clear, he is tolerating trach ventilator support, no change in mental status. 02/11: No changes in mental status, continue supportive care. 02/10: No mental status change, patient in bed, tolerating trach collar. 02/09: No changes overnight, peg tube in place operational, trach collar in place. 02/08: No changes, peg tube in place and operational, trach collar in place as well, no bloody discharge noted, 02/07: no acute changes, peg tube in place it is operational. 02/06: No new events, patient seen with family in room, recommend to family to cut families finger nails, keep trach collar in place, patient tolerating peg feeding. 02/05: No new events, will continue Trach collar in place, peg feeding. 02/04: No new events, continue supportive care. 02/03: New new events, continue supportive care 01/31: No new events, tolerating peg tube feeding, continue supportive care. 01/30--> no new events, non verbal, tolerating Peg tube feeding, supportive management 01/29: no change, peg and trach in place 3: No acute changes in mental status, 3: No acute changes, patient not in respiratory distress. 36: No acute changes, peg tube in place, operational, running still at 50 cc/ hr at night with a bolus feed during the day 3/5: No acute changes, peg tube in place, operational, running still at 50 cc/ hr at night with a bolus feed during the day. 3/4: no acute changes, pet tube in place it is operational. 3/: No acute changes in mental status. 3: NO acute changes in mental satus, peg tube in place and operational, thick white secretion from trach tube. 01/21: No acute change in mental status, peg tube operational no signs of blockage or infection(bolus during day and 50cc/hr at night. No acute change in mental status. PEG tube operational, tube feedings running at 50cc/hr at night and bolus feeds during the day 12/28: PEG tube placed at bedside by Dr. Chan. Abdominal X-ray showed PEG tube in position with contrast entering appropriately. PEG tube approved for use. GCS 8 [id number] patient with trach in place. Pending placement training family in how to take care of patient (2) Respiratory failure Assessment & Plan: 02/13: Trach collar in place. 02/12: CXR today read as: Linear atelectasis at the bases. Cardiomegaly, CXR ordered because the patient's breath sounds were not clear. 02/11: Patient tolerating trach collar, clear mucus discharge, no sign of infection 02/10: No respiratory distress, trach collar in place, clear mucus discharge, no sign of infection. 02/09: Trach collar in place, continue free water flushes, no bloody discharge 02/08, Trach collar in place, continue free water flushes 02/07:Trach collar in place, no respiratory distress, continue free water flushes 02/06: Trach in place, continue ventilator support 02/04: Trach collar in place, Respiratory did some suction. 02/03: Tolerating trach collar, continue free water fluesh 300 cc q8h. 01/31: Trach Collar in place, continue free water flushes 300 cc q8h. 01/30--> tolerating on Trach Collar, 01/29: trach in place, no resp distress, 01/28: Trach collar in place, no respiratory distress, continue free water flushes 01/27: No respiratory distress, white secretions noted, continue free water flushes at 300 cc q8h. 01/26: Trach collar in place, white secretions still noted, continue free water flushes at 300 cc/hr. 01/25: Trach collar in place, white secretions still noted, continue free water flushes at 300 cc/hr. 01/24: No acute changes, tranch collar in place. Still using free water flushes at 300cc q6h, white secretions still noted. 01/23: Trach collar in place with same oxygen level of 6L, white secretions noted. 01/22: No acute changes, trach collar in place at same level of 6L oxygen, thick white secretions noted. 01/21: No interval change, trach collar in place 6L O2 still, no secretions. no interval change. trach collar at 6L O2. No secretions noted this morning. Trach collar in place. Sputum culture 12/06 + pseudomonas: probably colonization. afebrile. normal white count. CXR without infiltrates. No antibiotics for now per Dr. Armstrong tracheostomy with tube change by Dr. Chan on 11/27/15 CXR 12/08--> Tracheostomy tube appears deviated to the left which may be related to patient positioning. Clinical correlation as this does not project over the midline trachea. Bibasilar atelectasis. Mild stable nodularity at the right lung base. (see full report) Cipro started on 11/30 was stopped on 12/08. clean and dry site saturating well on 7L O2 via trach collar No blood tinged secretions noted Bronchial washing grew Pseudomonas ID consult - Dr. Armstrong - help appreciated Working on getting portable suctioning for family to practice (3) Urinary tract infection Assessment & Plan: 02/13: Baker in place, no sign of leak, urine is clear. 02/12: Baker in place, no sign of leak, urine is clear. 02/11: Baker in place, no sign of leak, urine is clear 02/10: Baker in place, no sign of leak, urine is clear. 02/09: Baker in place in urine clear 02/08: Baker in place, urine clear 02/07: baker changed this AM - urine clear 02/06: plan to change baker catheter tomorrow, urine clear. 02/04: Baker in place, urine clear. 02/03: Baker in place, urine clear, will change baker every 3 weeks. 01/31: Baker in place, clear color urine, no bleeding, continue to monitor. 01/30--> Baker;s in place, clear color urine, no bleeding, 01/29: baker in place 01/27: Resolved, Baker in place, urine is clear. 01/26: Resolved, Baker in place, 01/25: Resolved, Baker in place, urine is clear color this morning. 01/24: Resolved, Baker in place, urine is a more dark yellow color. 01/23: Resolved, Baker in place, urine is clear color. 01/22: Resolved no acute changes. 01/21: Resolved no changes afebrile, continue monitoring for fever 01/18: afebrile overnight. WBC 9.5 yesterday. CBC to be done twice weekly, unless increased frequency is clinically indicated 01/14: Off IV Zosyn, continue baker catheter. f/u CBC and monitor VS 01/13: Stop IV Zosyn today. 01/12: Continue IV Zosyn at this time with plan to dc on 01/13 per ID 01/11: continue Zosyn 3.375gm IVPB Q6H (day 5) will discontinue on 01/13/1601/09: Will speak with Dr. Armstrong regarding length of IV antibiotic therapy. In the meantime, continue Zosyn 3.375gm IVPB Q6H. Continue monitoring CBC and for fevers. 01/07: Continue Zosyn 3.375gm IVPB Q6H. Monitor for fevers, Monitor CBC 01/06: urine culture positive for proteus mirabilis (sensitive to tobramycin, zosyn, amikacin, gentamicin). baker catheter to be re-inserted. Switch to Zosyn 3.375gm IVPB Q6H per Dr. Armstrong. 01/05: f/u urine culture sensitivities. Continue Primaxin 500mg IVPB Q8H as per Dr. Armstrong. 01/04: Urine culture + for gram negative rods. spoke with Dr. Armstrong. switched rocephin to primaxin 500mg IVPB Q8H [place] catheter ordered to be used with skin prep to keep it on 01/03: urinalysis had 4+ protein, positive nitrates, 3+ leukocyte esterase. Rocephin 1gm IVPB daily started. Continue [place] catheter. Ditropan 5mg PEG TID for leakage around catheter Urology consult - Dr. Oropeza - help appreciated ID on board - Dr. Armstrong - help appreciated (4) CAD (coronary artery disease) Assessment & Plan: No new events. Cardiac stents on 06/13/15. Continue Lisinopril 5mg PO daily Continue Plavix 75mg PO daily Continue ASA 325mg PO daily-currently held due to recent trach bleeding (5) Seizures Assessment & Plan: 02/10: No active seizure, continue dilantin 100mg tid through peg tube. 02/09: no active seizure, continue dilantin 100mg tid through peg tube. no active seizures, continue dilantin 100mg tid through peg tube, continue to monitor patient closely. No active seizure, continue dilantin 100mg through peg tube TID Continue dilantin 100mg PEG TID SZ percaution, Fall precaution (6) Bed sore Assessment & Plan: 02/11: Healed pressure ulcer, skin excoration noted, will continue move patient q2h. 02/10: No change, will continue to monitor twice a week. 02/07: continue to monitor twice a week. no changes 02/06: No Change, continue to check every 2 weeks. 02/04: Evaluated this morning, healed sacral decubitus wound present, continue move patient q2h. 02/03: Continue move patient q2h, continue check patient twice a week. 01/30--> Healed Sacral decubitus wound 01/27: Ecchymosis like bruising around his left hip and buttock area, will continue to monitor closely, monitor cbc closely as well. 01/27: No change, resolved, continue to monitor twice a week. 01/26: No change, continue to monitor twice a week. 01/25: No change, will continue to check twice a week. 3: No change, monitor twice a week 01/22: Monitor twice a week. 01/21: Resolved, continue to monitor patient twice a week. : sacral ulcer to be evaluated minimum twice per week. 01/19: Sacral ulcer healed, Stage 0 01/15: Sacral ulcer improving considerably, Stage I (one) ulcer observed, non- open continue wound care, sensicare, and medihoney sacral ulcer. Stage II 0.5cm x 1.5cm Continue wound care, sensicare and medihoney. Continue repositioning of patient q2H. dolphin mattress. Heel air boots. (7) Prophylactic measure Assessment & Plan: Lovenox 40 SC daily Pepcid 20 mg PO BID [facility]
[2016-02-15] MEDS: Phenytoin 100 mg/4 ml Oral Susp UD PEG SCH ×3 (10:27→18:50)
[2016-02-15] MEDS: Enoxaparin 40 mg Syringe SC SCH (10:27)
--- NOTE | 2016-02-15 16:04 | CP.PCM.PN ---
<LinJoel H - Last Filed: 02/15/16 16:01> Subjective - Date & Time of Evaluation Date of Evaluation: 02/15/16 Time of Evaluation: 09:40 - Subjective Subjective: Patient seen in room, no acute mental status change, patient is still non verbal. Objective - Vital Signs/Intake and Output Vital Signs (last 24 hours): Temp Pulse Resp BP Pulse Ox 99.1 F 80 20 114/73 98 02/15/16 08:00 02/15/16 08:00 02/15/16 08:00 02/15/16 08:00 02/15/16 08:00 Intake and Output: 02/15/16 02/15/16 06:59 18:59 Intake Total 900 700 Output Total 900 450 Balance 0 250 - Medications Medications: Current Medications Aspirin (Aspirin) 325 mg PO DAILY [facility] Last Admin: 11/23/15 09:42 Dose: 325 mg Clopidogrel Bisulfate (Plavix) 75 mg PO DAILY [facility] Last Admin: 02/15/16 10:28 Dose: 75 mg Enoxaparin Sodium (Lovenox) 40 mg SC DAILY [facility] Last Admin: 02/15/16 10:27 Dose: 40 mg Lisinopril (Zestril) 5 mg PO DAILY [facility] Last Admin: 02/15/16 10:29 Dose: 5 mg Oxybutynin Chloride (Ditropan Tab) 5 mg PO TID [facility] Last Admin: 02/15/16 14:49 Dose: 5 mg Phenytoin (Dilantin) 100 mg PEG TID [facility] Last Admin: 02/15/16 14:49 Dose: 100 mg Polyethylene Glycol (Miralax) 17 gm PEG BID [facility] Last Admin: 02/14/16 10:48 Dose: Not Given - Labs Labs: 02/12/16 07:01 02/12/16 07:01 PT 10.6 SECONDS (9.7-12.2) 11/24/15 14:10 INR 1.0 11/24/15 14:10 APTT 25 SECONDS (21-34) 11/24/15 14:10 - Constitutional Appears: Chronically Ill - Head Exam Head Exam: NORMAL INSPECTION - Eye Exam Eye Exam: Normal appearance, PERRL Pupil Exam: NORMAL ACCOMODATION - ENT Exam ENT Exam: Mucous Membranes Dry, Normal Exam - Neck Exam Neck Exam: Normal Inspection Additional comments: trach collar in place - Respiratory Exam Respiratory Exam: Clear to Ausculation Bilateral. absent: Rales, Rhonchi, Wheezes - Cardiovascular Exam Cardiovascular Exam: REGULAR RHYTHM, RRR, +S1, +S2. absent: Gallop, Rubs - GI/Abdominal Exam GI & Abdominal Exam: Soft, Normal Bowel Sounds. absent: Tenderness Additional comments: Peg tube in place. Baker in place, no sign of leak - Extremities Exam Extremities Exam: Normal Inspection - Back Exam Back Exam: NORMAL INSPECTION - Skin Skin Exam: Diaphoretic Assessment and Plan - Assessment and Plan (Free Text) Assessment: 1) Anoxic encephalopathy Assessment & Plan: 02/14: Tolerating trach collar, no acute changes overnight 02/13: Patient seen in room, tolerating trach collar, no acute mental changes. 02/12: CXR today read as: Linear atelectasis at the bases. Cardiomegaly, CXR ordered because the patient's breath sounds were not clear, he is tolerating trach ventilator support, no change in mental status. 02/11: No changes in mental status, continue supportive care. 02/10: No mental status change, patient in bed, tolerating trach collar. 02/09: No changes overnight, peg tube in place operational, trach collar in place. 02/08: No changes, peg tube in place and operational, trach collar in place as well, no bloody discharge noted, 02/07: no acute changes, peg tube in place it is operational. 02/06: No new events, patient seen with family in room, recommend to family to cut families finger nails, keep trach collar in place, patient tolerating peg feeding. 02/05: No new events, will continue Trach collar in place, peg feeding. 02/04: No new events, continue supportive care. 02/03: New new events, continue supportive care 01/31: No new events, tolerating peg tube feeding, continue supportive care. 01/30--> no new events, non verbal, tolerating Peg tube feeding, supportive management 01/29: no change, peg and trach in place 01/28: No acute changes in mental status, 01/27: No acute changes, patient not in respiratory distress. 01/26: No acute changes, peg tube in place, operational, running still at 50 cc/ hr at night with a bolus feed during the day 3: No acute changes, peg tube in place, operational, running still at 50 cc/ hr at night with a bolus feed during the day. 01/24: no acute changes, pet tube in place it is operational. 01/23: No acute changes in mental status. 01/22: NO acute changes in mental satus, peg tube in place and operational, thick white secretion from trach tube. 01/21: No acute change in mental status, peg tube operational no signs of blockage or infection(bolus during day and 50cc/hr at night. No acute change in mental status. PEG tube operational, tube feedings running at 50cc/hr at night and bolus feeds during the day 12/28: PEG tube placed at bedside by Dr. Chan. Abdominal X-ray showed PEG tube in position with contrast entering appropriately. PEG tube approved for use. GCS 8 [id number] patient with trach in place. Pending placement training family in how to take care of patient (2) Respiratory failure Assessment & Plan: 02/14: Tolerating trach, continue ventilator support. 02/13: Trach collar in place. 02/12: CXR today read as: Linear atelectasis at the bases. Cardiomegaly, CXR ordered because the patient's breath sounds were not clear. 02/11: Patient tolerating trach collar, clear mucus discharge, no sign of infection 02/10: No respiratory distress, trach collar in place, clear mucus discharge, no sign of infection. 02/09: Trach collar in place, continue free water flushes, no bloody discharge 02/08, Trach collar in place, continue free water flushes 02/07:Trach collar in place, no respiratory distress, continue free water flushes 02/06: Trach in place, continue ventilator support 02/04: Trach collar in place, Respiratory did some suction. 02/03: Tolerating trach collar, continue free water fluesh 300 cc q8h. 01/31: Trach Collar in place, continue free water flushes 300 cc q8h. 01/30--> tolerating on Trach Collar, 01/29: trach in place, no resp distress, 01/28: Trach collar in place, no respiratory distress, continue free water flushes 01/27: No respiratory distress, white secretions noted, continue free water flushes at 300 cc q8h. 01/26: Trach collar in place, white secretions still noted, continue free water flushes at 300 cc/hr. 01/25: Trach collar in place, white secretions still noted, continue free water flushes at 300 cc/hr. 01/24: No acute changes, tranch collar in place. Still using free water flushes at 300cc q6h, white secretions still noted. 01/23: Trach collar in place with same oxygen level of 6L, white secretions noted. 3: No acute changes, trach collar in place at same level of 6L oxygen, thick white secretions noted. 01/21: No interval change, trach collar in place 6L O2 still, no secretions. no interval change. trach collar at 6L O2. No secretions noted this morning. Trach collar in place. Sputum culture 12/06 + pseudomonas: probably colonization. afebrile. normal white count. CXR without infiltrates. No antibiotics for now per Dr. Armstrong tracheostomy with tube change by Dr. Chan on 11/27/15 CXR 12/08--> Tracheostomy tube appears deviated to the left which may be related to patient positioning. Clinical correlation as this does not project over the midline trachea. Bibasilar atelectasis. Mild stable nodularity at the right lung base. (see full report) Cipro started on 11/30 was stopped on 12/08. clean and dry site saturating well on 7L O2 via trach collar No blood tinged secretions noted Bronchial washing grew Pseudomonas ID consult - Dr. Armstrong - help appreciated Working on getting portable suctioning for family to practice (3) Urinary tract infection Assessment & Plan: 02/14: Baker in place, urine clear. 02/13: Baker in place, no sign of leak, urine is clear. 02/12: Baker in place, no sign of leak, urine is clear. 02/11: Baker in place, no sign of leak, urine is clear 02/10: Baker in place, no sign of leak, urine is clear. 02/09: Baker in place in urine clear 02/08: Baker in place, urine clear 02/07: baker changed this AM - urine clear 02/06: plan to change baker catheter tomorrow, urine clear. 02/04: Baker in place, urine clear. 02/03: Baker in place, urine clear, will change baker every 3 weeks. 01/31: Baker in place, clear color urine, no bleeding, continue to monitor. 01/30--> Baker;s in place, clear color urine, no bleeding, 01/29: baker in place 01/27: Resolved, Baker in place, urine is clear. 01/26: Resolved, Baker in place, 01/25: Resolved, Baker in place, urine is clear color this morning. 01/24: Resolved, Baker in place, urine is a more dark yellow color. 01/23: Resolved, Baker in place, urine is clear color. 01/22: Resolved no acute changes. 01/21: Resolved no changes afebrile, continue monitoring for fever 01/18: afebrile overnight. WBC 9.5 yesterday. CBC to be done twice weekly, unless increased frequency is clinically indicated 01/14: Off IV Zosyn, continue baker catheter. f/u CBC and monitor VS 01/13: Stop IV Zosyn today. 01/12: Continue IV Zosyn at this time with plan to dc on 01/13 per ID 01/11: continue Zosyn 3.375gm IVPB Q6H (day 5) will discontinue on 01/13/1601/09: Will speak with Dr. Armstrong regarding length of IV antibiotic therapy. In the meantime, continue Zosyn 3.375gm IVPB Q6H. Continue monitoring CBC and for fevers. 01/07: Continue Zosyn 3.375gm IVPB Q6H. Monitor for fevers, Monitor CBC 01/06: urine culture positive for proteus mirabilis (sensitive to tobramycin, zosyn, amikacin, gentamicin). baker catheter to be re-inserted. Switch to Zosyn 3.375gm IVPB Q6H per Dr. Armstrong. 01/05: f/u urine culture sensitivities. Continue Primaxin 500mg IVPB Q8H as per Dr. Armstrong. 01/04: Urine culture + for gram negative rods. spoke with Dr. Armstrong. switched rocephin to primaxin 500mg IVPB Q8H [place] catheter ordered to be used with skin prep to keep it on 01/03: urinalysis had 4+ protein, positive nitrates, 3+ leukocyte esterase. Rocephin 1gm IVPB daily started. Continue [place] catheter. Ditropan 5mg PEG TID for leakage around catheter Urology consult - Dr. Oropeza - help appreciated ID on board - Dr. Armstrong - help appreciated (4) CAD (coronary artery disease) Assessment & Plan: No new events. Cardiac stents on 06/13/15. Continue Lisinopril 5mg PO daily Continue Plavix 75mg PO daily Continue ASA 325mg PO daily-currently held due to recent trach bleeding (5) Seizures Assessment & Plan: 02/10: No active seizure, continue dilantin 100mg tid through peg tube. 02/09: no active seizure, continue dilantin 100mg tid through peg tube. no active seizures, continue dilantin 100mg tid through peg tube, continue to monitor patient closely. No active seizure, continue dilantin 100mg through peg tube TID Continue dilantin 100mg PEG TID SZ percaution, Fall precaution (6) Bed sore Assessment & Plan: 02/11: Healed pressure ulcer, skin excoration noted, will continue move patient q2h. 02/10: No change, will continue to monitor twice a week. 02/07: continue to monitor twice a week. no changes 02/06: No Change, continue to check every 2 weeks. 02/04: Evaluated this morning, healed sacral decubitus wound present, continue move patient q2h. 02/03: Continue move patient q2h, continue check patient twice a week. 01/30--> Healed Sacral decubitus wound 01/27: Ecchymosis like bruising around his left hip and buttock area, will continue to monitor closely, monitor cbc closely as well. 01/27: No change, resolved, continue to monitor twice a week. 01/26: No change, continue to monitor twice a week. 01/25: No change, will continue to check twice a week. 01/24: No change, monitor twice a week 01/22: Monitor twice a week. 01/21: Resolved, continue to monitor patient twice a week. : sacral ulcer to be evaluated minimum twice per week. 01/19: Sacral ulcer healed, Stage 0 01/15: Sacral ulcer improving considerably, Stage I (one) ulcer observed, non- open continue wound care, sensicare, and medihoney sacral ulcer. Stage II 0.5cm x 1.5cm Continue wound care, sensicare and medihoney. Continue repositioning of patient q2H. dolphin mattress. Heel air boots. (7) Prophylactic measure Assessment & Plan: Lovenox 40 SC daily Pepcid 20 mg PO BID SCDs <Rashel Rodrigues - Last Filed: 02/16/16 08:13> Objective - Vital Signs/Intake and Output Vital Signs (last 24 hours): Temp Pulse Resp BP Pulse Ox 98.7 F 83 20 129/79 99 02/16/16 00:00 02/16/16 00:00 02/16/16 00:00 02/16/16 00:00 02/16/16 00:00 Intake and Output: 02/16/16 02/16/16 06:59 18:59 Intake Total 900 750 Output Total 700 Balance 200 750 - Medications Medications: Current Medications Aspirin (Aspirin) 325 mg PO DAILY [facility] Last Admin: 11/23/15 09:42 Dose: 325 mg Clopidogrel Bisulfate (Plavix) 75 mg PO DAILY [facility] Last Admin: 02/15/16 10:28 Dose: 75 mg Enoxaparin Sodium (Lovenox) 40 mg SC DAILY [facility] Last Admin: 02/15/16 10:27 Dose: 40 mg Lisinopril (Zestril) 5 mg PO DAILY [facility] Last Admin: 02/15/16 10:29 Dose: 5 mg Oxybutynin Chloride (Ditropan Tab) 5 mg PO TID [facility] Last Admin: 02/15/16 18:50 Dose: 5 mg Phenytoin (Dilantin) 100 mg PEG TID [facility] Last Admin: 02/15/16 18:50 Dose: 100 mg Polyethylene Glycol (Miralax) 17 gm PEG BID [facility] Last Admin: 02/14/16 10:48 Dose: Not Given - Labs Labs: 02/12/16 07:01 02/12/16 07:01 PT 10.6 SECONDS (9.7-12.2) 11/24/15 14:10 INR 1.0 11/24/15 14:10 APTT 25 SECONDS (21-34) 11/24/15 14:10 Attending/Attestation - Attestation I have personally seen and examined this patient.: Yes I have fully participated in the care of the patient.: Yes I have reviewed all pertinent clinical information, including history, physical exam and plan: Yes Notes (Text): 02/16/16 08:10 (Late entry for 02/15/16) Patient was seen and examined during the round with the resident. pt has no new events, Tolerating TF Trach site is clean and dry Peg site is also clean and dry Baker's functioning well cont supportive mx.
--- NOTE | 2016-02-16 07:59 | CP.PCM.PN ---
<Scout Marinelli - Last Filed: 02/16/16 07:56> Subjective - Date & Time of Evaluation Date of Evaluation: 02/16/16 Time of Evaluation: 00:00 - Subjective Subjective: PGY1 on Dr. Rodrigues service: Pt seen and examined at bedside this morning. No acute events overnight. ROS unobtainable. Mental status unchanged. Not responding to Mandarin commands. Objective - Vital Signs/Intake and Output Vital Signs (last 24 hours): Temp Pulse Resp BP Pulse Ox 98.7 F 83 20 129/79 99 02/16/16 00:00 02/16/16 00:00 02/16/16 00:00 02/16/16 00:00 02/16/16 00:00 Intake and Output: 02/16/16 02/16/16 06:59 18:59 Intake Total 900 750 Output Total 700 Balance 200 750 - Medications Medications: Current Medications Aspirin (Aspirin) 325 mg PO DAILY [facility] Last Admin: 11/23/15 09:42 Dose: 325 mg Clopidogrel Bisulfate (Plavix) 75 mg PO DAILY [facility] Last Admin: 02/15/16 10:28 Dose: 75 mg Enoxaparin Sodium (Lovenox) 40 mg SC DAILY [facility] Last Admin: 02/15/16 10:27 Dose: 40 mg Lisinopril (Zestril) 5 mg PO DAILY [facility] Last Admin: 02/15/16 10:29 Dose: 5 mg Oxybutynin Chloride (Ditropan Tab) 5 mg PO TID [facility] Last Admin: 02/15/16 18:50 Dose: 5 mg Phenytoin (Dilantin) 100 mg PEG TID [facility] Last Admin: 02/15/16 18:50 Dose: 100 mg Polyethylene Glycol (Miralax) 17 gm PEG BID [facility] Last Admin: 02/14/16 10:48 Dose: Not Given - Labs Labs: 02/12/16 07:01 02/12/16 07:01 PT 10.6 SECONDS (9.7-12.2) 11/24/15 14:10 INR 1.0 11/24/15 14:10 APTT 25 SECONDS (21-34) 11/24/15 14:10 - Constitutional Appears: Non-toxic, No Acute Distress - Head Exam Head Exam: NORMAL INSPECTION, NORMOCEPHALIC - Eye Exam Eye Exam: Normal appearance Pupil Exam: NORMAL ACCOMODATION - Respiratory Exam Respiratory Exam: Clear to Ausculation Bilateral, NORMAL BREATHING PATTERN Additional comments: trach collar in place - Cardiovascular Exam Cardiovascular Exam: REGULAR RHYTHM, +S1, +S2. absent: Gallop, Rubs - GI/Abdominal Exam GI & Abdominal Exam: Soft, Normal Bowel Sounds Additional comments: PEG in place - Neurological Exam Neurological Exam: Altered, Awake Assessment and Plan (1) Respiratory failure Status: Acute (2) UTI (lower urinary tract infection) Status: Acute (3) Bed sore Status: Acute (4) Blood in stool Status: Acute (5) Anoxic encephalopathy Status: Acute (6) Leukocytosis Status: Acute (7) Seizures Status: Acute (8) Prophylactic measure Status: Acute - Assessment and Plan (Free Text) Assessment: 1) Anoxic encephalopathy Assessment & Plan: 02/15: Tolerating trach collar, no acute changes overnight 02/13: Patient seen in room, tolerating trach collar, no acute mental changes. 02/12: CXR today read as: Linear atelectasis at the bases. Cardiomegaly, CXR ordered because the patient's breath sounds were not clear, he is tolerating trach ventilator support, no change in mental status. 02/11: No changes in mental status, continue supportive care. 02/10: No mental status change, patient in bed, tolerating trach collar. 02/09: No changes overnight, peg tube in place operational, trach collar in place. 02/08: No changes, peg tube in place and operational, trach collar in place as well, no bloody discharge noted, 02/07: no acute changes, peg tube in place it is operational. 02/06: No new events, patient seen with family in room, recommend to family to cut families finger nails, keep trach collar in place, patient tolerating peg feeding. 02/05: No new events, will continue Trach collar in place, peg feeding. 02/04: No new events, continue supportive care. 02/03: New new events, continue supportive care 01/31: No new events, tolerating peg tube feeding, continue supportive care. 01/30--> no new events, non verbal, tolerating Peg tube feeding, supportive management 01/29: no change, peg and trach in place 01/28: No acute changes in mental status, 01/27: No acute changes, patient not in respiratory distress. 01/26: No acute changes, peg tube in place, operational, running still at 50 cc/ hr at night with a bolus feed during the day 3: No acute changes, peg tube in place, operational, running still at 50 cc/ hr at night with a bolus feed during the day. 3: no acute changes, pet tube in place it is operational. 01/23: No acute changes in mental status. 3/2: NO acute changes in mental satus, peg tube in place and operational, thick white secretion from trach tube. 3: No acute change in mental status, peg tube operational no signs of blockage or infection(bolus during day and 50cc/hr at night. No acute change in mental status. PEG tube operational, tube feedings running at 50cc/hr at night and bolus feeds during the day 12/28: PEG tube placed at bedside by Dr. Chan. Abdominal X-ray showed PEG tube in position with contrast entering appropriately. PEG tube approved for use. GCS 8 [id number] patient with trach in place. Pending placement training family in how to take care of patient (2) Respiratory failure Assessment & Plan: 02/15: Tolerating trach, continue ventilator support. 02/13: Trach collar in place. 02/12: CXR today read as: Linear atelectasis at the bases. Cardiomegaly, CXR ordered because the patient's breath sounds were not clear. 02/11: Patient tolerating trach collar, clear mucus discharge, no sign of infection 02/10: No respiratory distress, trach collar in place, clear mucus discharge, no sign of infection. 02/09: Trach collar in place, continue free water flushes, no bloody discharge 02/08, Trach collar in place, continue free water flushes 02/07:Trach collar in place, no respiratory distress, continue free water flushes 02/06: Trach in place, continue ventilator support 02/04: Trach collar in place, Respiratory did some suction. 02/03: Tolerating trach collar, continue free water fluesh 300 cc q8h. 01/31: Trach Collar in place, continue free water flushes 300 cc q8h. 01/30--> tolerating on Trach Collar, 01/29: trach in place, no resp distress, 01/28: Trach collar in place, no respiratory distress, continue free water flushes 01/27: No respiratory distress, white secretions noted, continue free water flushes at 300 cc q8h. 01/26: Trach collar in place, white secretions still noted, continue free water flushes at 300 cc/hr. 01/25: Trach collar in place, white secretions still noted, continue free water flushes at 300 cc/hr. 01/24: No acute changes, tranch collar in place. Still using free water flushes at 300cc q6h, white secretions still noted. 01/23: Trach collar in place with same oxygen level of 6L, white secretions noted. 01/22: No acute changes, trach collar in place at same level of 6L oxygen, thick white secretions noted. 01/21: No interval change, trach collar in place 6L O2 still, no secretions. no interval change. trach collar at 6L O2. No secretions noted this morning. Trach collar in place. Sputum culture 12/06 + pseudomonas: probably colonization. afebrile. normal white count. CXR without infiltrates. No antibiotics for now per Dr. Armstrong tracheostomy with tube change by Dr. Chan on 11/27/15 CXR 12/08--> Tracheostomy tube appears deviated to the left which may be related to patient positioning. Clinical correlation as this does not project over the midline trachea. Bibasilar atelectasis. Mild stable nodularity at the right lung base. (see full report) Cipro started on 11/30 was stopped on 12/08. clean and dry site saturating well on 7L O2 via trach collar No blood tinged secretions noted Bronchial washing grew Pseudomonas ID consult - Dr. Armstrong - help appreciated Working on getting portable suctioning for family to practice (3) Urinary tract infection Assessment & Plan: 02/15: Baker in place, urine clear. 02/13: Baker in place, no sign of leak, urine is clear. 02/12: Baekr in place, no sign of leak, urine is clear. 02/11: Baker in place, no sign of leak, urine is clear 02/10: Baker in place, no sign of leak, urine is clear. 02/09: Baker in place in urine clear 02/08: Baker in place, urine clear 02/07: baker changed this AM - urine clear 02/06: plan to change baker catheter tomorrow, urine clear. 02/04: Baker in place, urine clear. 02/03: Baker in place, urine clear, will change baker every 3 weeks. 01/31: Baker in place, clear color urine, no bleeding, continue to monitor. 01/30--> Baker;s in place, clear color urine, no bleeding, 01/29: baker in place 01/27: Resolved, Baker in place, urine is clear. 01/26: Resolved, Baker in place, 01/25: Resolved, Baker in place, urine is clear color this morning. 01/24: Resolved, Baker in place, urine is a more dark yellow color. 01/23: Resolved, Baker in place, urine is clear color. 01/22: Resolved no acute changes. 01/21: Resolved no changes afebrile, continue monitoring for fever 01/18: afebrile overnight. WBC 9.5 yesterday. CBC to be done twice weekly, unless increased frequency is clinically indicated 01/14: Off IV Zosyn, continue baker catheter. f/u CBC and monitor VS 01/13: Stop IV Zosyn today. 01/12: Continue IV Zosyn at this time with plan to dc on 01/13 per ID 01/11: continue Zosyn 3.375gm IVPB Q6H (day 5) will discontinue on 01/13/1601/09: Will speak with Dr. Armstrong regarding length of IV antibiotic therapy. In the meantime, continue Zosyn 3.375gm IVPB Q6H. Continue monitoring CBC and for fevers. 01/07: Continue Zosyn 3.375gm IVPB Q6H. Monitor for fevers, Monitor CBC 01/06: urine culture positive for proteus mirabilis (sensitive to tobramycin, zosyn, amikacin, gentamicin). baker catheter to be re-inserted. Switch to Zosyn 3.375gm IVPB Q6H per Dr. Armstrong. 01/05: f/u urine culture sensitivities. Continue Primaxin 500mg IVPB Q8H as per Dr. Armstrong. 01/04: Urine culture + for gram negative rods. spoke with Dr. Armstrong. switched rocephin to primaxin 500mg IVPB Q8H [place] catheter ordered to be used with skin prep to keep it on 01/03: urinalysis had 4+ protein, positive nitrates, 3+ leukocyte esterase. Rocephin 1gm IVPB daily started. Continue [place] catheter. Ditropan 5mg PEG TID for leakage around catheter Urology consult - Dr. Oropeza - help appreciated ID on board - Dr. Armstrong - help appreciated (4) CAD (coronary artery disease) Assessment & Plan: No new events. Cardiac stents on 06/13/15. Continue Lisinopril 5mg PO daily Continue Plavix 75mg PO daily Continue ASA 325mg PO daily-currently held due to recent trach bleeding (5) Seizures Assessment & Plan: 02/10: No active seizure, continue dilantin 100mg tid through peg tube. 02/09: no active seizure, continue dilantin 100mg tid through peg tube. no active seizures, continue dilantin 100mg tid through peg tube, continue to monitor patient closely. No active seizure, continue dilantin 100mg through peg tube TID Continue dilantin 100mg PEG TID SZ percaution, Fall precaution (6) Bed sore Assessment & Plan: 02/11: Healed pressure ulcer, skin excoration noted, will continue move patient q2h. 02/10: No change, will continue to monitor twice a week. 02/07: continue to monitor twice a week. no changes 02/06: No Change, continue to check every 2 weeks. 02/04: Evaluated this morning, healed sacral decubitus wound present, continue move patient q2h. 02/03: Continue move patient q2h, continue check patient twice a week. 01/30--> Healed Sacral decubitus wound 01/27: Ecchymosis like bruising around his left hip and buttock area, will continue to monitor closely, monitor cbc closely as well. 01/27: No change, resolved, continue to monitor twice a week. 01/26: No change, continue to monitor twice a week. 01/25: No change, will continue to check twice a week. 01/24: No change, monitor twice a week 01/22: Monitor twice a week. 01/21: Resolved, continue to monitor patient twice a week. : sacral ulcer to be evaluated minimum twice per week. 01/19: Sacral ulcer healed, Stage 0 01/15: Sacral ulcer improving considerably, Stage I (one) ulcer observed, non- open continue wound care, sensicare, and medihoney sacral ulcer. Stage II 0.5cm x 1.5cm Continue wound care, sensicare and medihoney. Continue repositioning of patient q2H. dolphin mattress. Heel air boots. (7) Prophylactic measure Assessment & Plan: Lovenox 40 SC daily Pepcid 20 mg PO BID [facility] <Rashel Rodrigues - Last Filed: 02/16/16 15:08> Objective - Vital Signs/Intake and Output Vital Signs (last 24 hours): Temp Pulse Resp BP Pulse Ox 98.6 F 80 20 143/85 99 02/16/16 08:00 02/16/16 08:30 02/16/16 08:30 02/16/16 08:00 02/16/16 00:00 Intake and Output: 02/16/16 02/16/16 06:59 18:59 Intake Total 900 750 Output Total 700 Balance 200 750 - Medications Medications: Current Medications Aspirin (Aspirin) 325 mg PO DAILY [facility] Last Admin: 11/23/15 09:42 Dose: 325 mg Clopidogrel Bisulfate (Plavix) 75 mg PO DAILY [facility] Last Admin: 02/16/16 10:48 Dose: 75 mg Enoxaparin Sodium (Lovenox) 40 mg SC DAILY [facility] Last Admin: 02/16/16 10:48 Dose: 40 mg Lisinopril (Zestril) 5 mg PO DAILY [facility] Last Admin: 02/16/16 10:48 Dose: 5 mg Oxybutynin Chloride (Ditropan Tab) 5 mg PO TID [facility] Last Admin: 02/16/16 14:01 Dose: 5 mg Phenytoin (Dilantin) 100 mg PEG TID [facility] Last Admin: 02/16/16 14:00 Dose: 100 mg Polyethylene Glycol (Miralax) 17 gm PEG BID [facility] Last Admin: 02/14/16 10:48 Dose: Not Given - Labs Labs: 02/12/16 07:01 02/12/16 07:01 PT 10.6 SECONDS (9.7-12.2) 11/24/15 14:10 INR 1.0 11/24/15 14:10 APTT 25 SECONDS (21-34) 11/24/15 14:10 Attending/Attestation - Attestation I have personally seen and examined this patient.: Yes I have fully participated in the care of the patient.: Yes I have reviewed all pertinent clinical information, including history, physical exam and plan: Yes Notes (Text): 02/16/16 15:07 Patient was seen and examined during the round with the resident. no new events pt condition unchanged cont supportive mx
[2016-02-16] MEDS: Enoxaparin 40 mg Syringe SC SCH (10:48)
[2016-02-16] MEDS: Phenytoin 100 mg/4 ml Oral Susp UD PEG SCH ×3 (10:49→18:30)
--- NOTE | 2016-02-17 06:12 | CP.PCM.PN ---
<Scout Marinelli - Last Filed: 02/17/16 06:09> Subjective - Date & Time of Evaluation Date of Evaluation: 02/17/16 Time of Evaluation: 00:00 - Subjective Subjective: PGY1 on Dr. Rodrigues service: Pt seen and examined at bedside this morning. Mental status unchanged. Not responding to Mandarin commands. ROS unobtainable. Objective - Vital Signs/Intake and Output Vital Signs (last 24 hours): Temp Pulse Resp BP Pulse Ox 97.7 F 77 20 125/76 98 02/16/16 23:39 02/16/16 23:39 02/16/16 23:39 02/16/16 23:39 02/16/16 23:39 Intake and Output: 02/16/16 02/17/16 18:59 06:59 Intake Total 750 1000 Output Total 900 Balance 750 100 - Medications Medications: Current Medications Aspirin (Aspirin) 325 mg PO DAILY [facility] Last Admin: 11/23/15 09:42 Dose: 325 mg Clopidogrel Bisulfate (Plavix) 75 mg PO DAILY [facility] Last Admin: 02/16/16 10:48 Dose: 75 mg Enoxaparin Sodium (Lovenox) 40 mg SC DAILY [facility] Last Admin: 02/16/16 10:48 Dose: 40 mg Lisinopril (Zestril) 5 mg PO DAILY [facility] Last Admin: 02/16/16 10:48 Dose: 5 mg Oxybutynin Chloride (Ditropan Tab) 5 mg PO TID [facility] Last Admin: 02/16/16 18:30 Dose: 5 mg Phenytoin (Dilantin) 100 mg PEG TID [facility] Last Admin: 02/16/16 18:30 Dose: 100 mg Polyethylene Glycol (Miralax) 17 gm PEG BID [facility] Last Admin: 02/14/16 10:48 Dose: Not Given - Labs Labs: 02/12/16 07:01 02/12/16 07:01 PT 10.6 SECONDS (9.7-12.2) 11/24/15 14:10 INR 1.0 11/24/15 14:10 APTT 25 SECONDS (21-34) 11/24/15 14:10 - Constitutional Appears: Non-toxic, No Acute Distress - Head Exam Head Exam: NORMAL INSPECTION, NORMOCEPHALIC - Eye Exam Eye Exam: Normal appearance Pupil Exam: NORMAL ACCOMODATION - ENT Exam ENT Exam: Mucous Membranes Moist - Neck Exam Neck Exam: Normal Inspection Additional comments: trach collar in place - Respiratory Exam Respiratory Exam: Clear to Ausculation Bilateral, NORMAL BREATHING PATTERN - Cardiovascular Exam Cardiovascular Exam: REGULAR RHYTHM, +S1, +S2 - GI/Abdominal Exam GI & Abdominal Exam: Soft, Normal Bowel Sounds Additional comments: PEG - Neurological Exam Neurological Exam: Altered, Awake - Psychiatric Exam Psychiatric exam: Normal Mood - Skin Skin Exam: Dry, Intact Assessment and Plan (1) Respiratory failure Status: Acute (2) UTI (lower urinary tract infection) Status: Acute (3) Bed sore Status: Acute (4) Blood in stool Status: Acute (5) Anoxic encephalopathy Status: Acute (6) Leukocytosis Status: Acute (7) Seizures Status: Acute (8) Prophylactic measure Status: Acute - Assessment and Plan (Free Text) Assessment: 1) Anoxic encephalopathy Assessment & Plan: 02/16: Tolerating trach collar, no acute changes overnight 02/13: Patient seen in room, tolerating trach collar, no acute mental changes. 02/12: CXR today read as: Linear atelectasis at the bases. Cardiomegaly, CXR ordered because the patient's breath sounds were not clear, he is tolerating trach ventilator support, no change in mental status. 02/11: No changes in mental status, continue supportive care. 02/10: No mental status change, patient in bed, tolerating trach collar. 02/09: No changes overnight, peg tube in place operational, trach collar in place. 02/08: No changes, peg tube in place and operational, trach collar in place as well, no bloody discharge noted, 02/07: no acute changes, peg tube in place it is operational. 02/06: No new events, patient seen with family in room, recommend to family to cut families finger nails, keep trach collar in place, patient tolerating peg feeding. 02/05: No new events, will continue Trach collar in place, peg feeding. 02/04: No new events, continue supportive care. 02/03: New new events, continue supportive care 01/31: No new events, tolerating peg tube feeding, continue supportive care. 01/30--> no new events, non verbal, tolerating Peg tube feeding, supportive management 01/29: no change, peg and trach in place 01/28: No acute changes in mental status, 01/27: No acute changes, patient not in respiratory distress. 3: No acute changes, peg tube in place, operational, running still at 50 cc/ hr at night with a bolus feed during the day 3: No acute changes, peg tube in place, operational, running still at 50 cc/ hr at night with a bolus feed during the day. 3: no acute changes, pet tube in place it is operational. 01/23: No acute changes in mental status. 3/: NO acute changes in mental satus, peg tube in place and operational, thick white secretion from trach tube. 3: No acute change in mental status, peg tube operational no signs of blockage or infection(bolus during day and 50cc/hr at night. No acute change in mental status. PEG tube operational, tube feedings running at 50cc/hr at night and bolus feeds during the day 12/28: PEG tube placed at bedside by Dr. Chan. Abdominal X-ray showed PEG tube in position with contrast entering appropriately. PEG tube approved for use. GCS 8 [id number] patient with trach in place. Pending placement training family in how to take care of patient (2) Respiratory failure Assessment & Plan: 02/16: Tolerating trach, continue ventilator support. 02/13: Trach collar in place. 02/12: CXR today read as: Linear atelectasis at the bases. Cardiomegaly, CXR ordered because the patient's breath sounds were not clear. 02/11: Patient tolerating trach collar, clear mucus discharge, no sign of infection 02/10: No respiratory distress, trach collar in place, clear mucus discharge, no sign of infection. 02/09: Trach collar in place, continue free water flushes, no bloody discharge 02/08, Trach collar in place, continue free water flushes 02/07:Trach collar in place, no respiratory distress, continue free water flushes 02/06: Trach in place, continue ventilator support 02/04: Trach collar in place, Respiratory did some suction. 02/03: Tolerating trach collar, continue free water fluesh 300 cc q8h. 01/31: Trach Collar in place, continue free water flushes 300 cc q8h. 01/30--> tolerating on Trach Collar, 01/29: trach in place, no resp distress, 01/28: Trach collar in place, no respiratory distress, continue free water flushes 01/27: No respiratory distress, white secretions noted, continue free water flushes at 300 cc q8h. 01/26: Trach collar in place, white secretions still noted, continue free water flushes at 300 cc/hr. 01/25: Trach collar in place, white secretions still noted, continue free water flushes at 300 cc/hr. 01/24: No acute changes, tranch collar in place. Still using free water flushes at 300cc q6h, white secretions still noted. 01/23: Trach collar in place with same oxygen level of 6L, white secretions noted. 01/22: No acute changes, trach collar in place at same level of 6L oxygen, thick white secretions noted. 01/21: No interval change, trach collar in place 6L O2 still, no secretions. no interval change. trach collar at 6L O2. No secretions noted this morning. Trach collar in place. Sputum culture 12/06 + pseudomonas: probably colonization. afebrile. normal white count. CXR without infiltrates. No antibiotics for now per Dr. Armstrong tracheostomy with tube change by Dr. Chan on 11/27/15 CXR 12/08--> Tracheostomy tube appears deviated to the left which may be related to patient positioning. Clinical correlation as this does not project over the midline trachea. Bibasilar atelectasis. Mild stable nodularity at the right lung base. (see full report) Cipro started on 11/30 was stopped on 12/08. clean and dry site saturating well on 7L O2 via trach collar No blood tinged secretions noted Bronchial washing grew Pseudomonas ID consult - Dr. Armstrong - help appreciated Working on getting portable suctioning for family to practice (3) Urinary tract infection Assessment & Plan: 02/15: Baker in place, urine clear. 02/13: Baker in place, no sign of leak, urine is clear. 02/12: Baker in place, no sign of leak, urine is clear. 02/11: Baker in place, no sign of leak, urine is clear 02/10: Baker in place, no sign of leak, urine is clear. 02/09: Baker in place in urine clear 02/08: Baker in place, urine clear 02/07: baker changed this AM - urine clear 02/06: plan to change baker catheter tomorrow, urine clear. 02/04: Baker in place, urine clear. 02/03: Baker in place, urine clear, will change baker every 3 weeks. 01/31: Baker in place, clear color urine, no bleeding, continue to monitor. 01/30--> Baker;s in place, clear color urine, no bleeding, 01/29: baker in place 01/27: Resolved, Baker in place, urine is clear. 01/26: Resolved, Baker in place, 01/25: Resolved, Baker in place, urine is clear color this morning. 01/24: Resolved, Baker in place, urine is a more dark yellow color. 01/23: Resolved, Baker in place, urine is clear color. 01/22: Resolved no acute changes. 01/21: Resolved no changes afebrile, continue monitoring for fever 01/18: afebrile overnight. WBC 9.5 yesterday. CBC to be done twice weekly, unless increased frequency is clinically indicated 01/14: Off IV Zosyn, continue baker catheter. f/u CBC and monitor VS 01/13: Stop IV Zosyn today. 01/12: Continue IV Zosyn at this time with plan to dc on 01/13 per ID 01/11: continue Zosyn 3.375gm IVPB Q6H (day 5) will discontinue on 01/13/1601/09: Will speak with Dr. Armstrong regarding length of IV antibiotic therapy. In the meantime, continue Zosyn 3.375gm IVPB Q6H. Continue monitoring CBC and for fevers. 01/07: Continue Zosyn 3.375gm IVPB Q6H. Monitor for fevers, Monitor CBC 01/06: urine culture positive for proteus mirabilis (sensitive to tobramycin, zosyn, amikacin, gentamicin). baker catheter to be re-inserted. Switch to Zosyn 3.375gm IVPB Q6H per Dr. Armstrong. 01/05: f/u urine culture sensitivities. Continue Primaxin 500mg IVPB Q8H as per Dr. Armstrong. 2/12: Urine culture + for gram negative rods. spoke with Dr. Armstrong. switched rocephin to primaxin 500mg IVPB Q8H [place] catheter ordered to be used with skin prep to keep it on 01/03: urinalysis had 4+ protein, positive nitrates, 3+ leukocyte esterase. Rocephin 1gm IVPB daily started. Continue [place] catheter. Ditropan 5mg PEG TID for leakage around catheter Urology consult - Dr. Oropeza - help appreciated ID on board - Dr. Armstrong - help appreciated (4) CAD (coronary artery disease) Assessment & Plan: No new events. Cardiac stents on 06/13/15. Continue Lisinopril 5mg PO daily Continue Plavix 75mg PO daily Continue ASA 325mg PO daily-currently held due to recent trach bleeding (5) Seizures Assessment & Plan: 02/10: No active seizure, continue dilantin 100mg tid through peg tube. 02/09: no active seizure, continue dilantin 100mg tid through peg tube. no active seizures, continue dilantin 100mg tid through peg tube, continue to monitor patient closely. No active seizure, continue dilantin 100mg through peg tube TID Continue dilantin 100mg PEG TID SZ percaution, Fall precaution (6) Bed sore Assessment & Plan: 02/11: Healed pressure ulcer, skin excoration noted, will continue move patient q2h. 02/10: No change, will continue to monitor twice a week. 02/07: continue to monitor twice a week. no changes 02/06: No Change, continue to check every 2 weeks. 02/04: Evaluated this morning, healed sacral decubitus wound present, continue move patient q2h. 02/03: Continue move patient q2h, continue check patient twice a week. 01/30--> Healed Sacral decubitus wound 01/27: Ecchymosis like bruising around his left hip and buttock area, will continue to monitor closely, monitor cbc closely as well. 01/27: No change, resolved, continue to monitor twice a week. 01/26: No change, continue to monitor twice a week. 01/25: No change, will continue to check twice a week. 01/24: No change, monitor twice a week 32: Monitor twice a week. 3/: Resolved, continue to monitor patient twice a week. 2/29: sacral ulcer to be evaluated minimum twice per week. 01/19: Sacral ulcer healed, Stage 0 01/15: Sacral ulcer improving considerably, Stage I (one) ulcer observed, non- open continue wound care, sensicare, and medihoney sacral ulcer. Stage II 0.5cm x 1.5cm Continue wound care, sensicare and medihoney. Continue repositioning of patient q2H. dolphin mattress. Heel air boots. (7) Prophylactic measure Assessment & Plan: Lovenox 40 SC daily Pepcid 20 mg PO BID [facility] <Rashel Rodrigues - Last Filed: 02/17/16 19:08> Objective - Vital Signs/Intake and Output Vital Signs (last 24 hours): Temp Pulse Resp BP Pulse Ox 98.8 F 83 20 125/84 100 02/17/16 16:00 02/17/16 16:00 02/17/16 16:00 02/17/16 16:00 02/17/16 16:00 Intake and Output: 02/17/16 02/18/16 18:59 06:59 Intake Total 800 Output Total 650 Balance 150 - Medications Medications: Current Medications Aspirin (Aspirin) 325 mg PO DAILY [facility] Last Admin: 11/23/15 09:42 Dose: 325 mg Clopidogrel Bisulfate (Plavix) 75 mg PO DAILY [facility] Last Admin: 02/17/16 10:46 Dose: 75 mg Enoxaparin Sodium (Lovenox) 40 mg SC DAILY [facility] Last Admin: 02/17/16 10:47 Dose: 40 mg Lisinopril (Zestril) 5 mg PO DAILY [facility] Last Admin: 02/17/16 10:46 Dose: 5 mg Oxybutynin Chloride (Ditropan Tab) 5 mg PO TID [facility] Last Admin: 02/17/16 17:47 Dose: 5 mg Phenytoin (Dilantin) 100 mg PEG TID [facility] Last Admin: 02/17/16 17:47 Dose: 100 mg Polyethylene Glycol (Miralax) 17 gm PEG BID [facility] Last Admin: 02/14/16 10:48 Dose: Not Given - Labs Labs: 02/12/16 07:01 02/12/16 07:01 PT 10.6 SECONDS (9.7-12.2) 11/24/15 14:10 INR 1.0 11/24/15 14:10 APTT 25 SECONDS (21-34) 11/24/15 14:10 Attending/Attestation - Attestation I have personally seen and examined this patient.: Yes I have fully participated in the care of the patient.: Yes I have reviewed all pertinent clinical information, including history, physical exam and plan: Yes Notes (Text): 02/17/16 19:07 Patient was seen and examined during the round with the resident. no new events cont supportive DC planning---> awaiting placement
[2016-02-17] MEDS: Enoxaparin 40 mg Syringe SC SCH (10:47)
[2016-02-17] MEDS: Phenytoin 100 mg/4 ml Oral Susp UD PEG SCH ×3 (10:48→17:47)
[2016-02-18] MEDS: Enoxaparin 40 mg Syringe SC SCH (10:08)
[2016-02-18] MEDS: Phenytoin 100 mg/4 ml Oral Susp UD PEG SCH ×3 (10:08→18:34)
--- NOTE | 2016-02-18 13:57 | CP.PCM.PN ---
<Joel Lin - Last Filed: 02/18/16 15:55> Subjective - Date & Time of Evaluation Date of Evaluation: 02/18/16 Time of Evaluation: 09:00 - Subjective Subjective: Patient seen in room. He is tolerating trach collar, no change in mental status. Objective - Vital Signs/Intake and Output Vital Signs (last 24 hours): Temp Pulse Resp BP Pulse Ox 98.1 F 82 18 131/85 100 02/18/16 07:47 02/18/16 07:47 02/18/16 07:47 02/18/16 07:47 02/18/16 07:47 Intake and Output: 02/18/16 02/18/16 06:59 18:59 Intake Total 500 700 Output Total 1300 300 Balance -800 400 - Medications Medications: Current Medications Aspirin (Aspirin) 325 mg PO DAILY [facility] Last Admin: 11/23/15 09:42 Dose: 325 mg Clopidogrel Bisulfate (Plavix) 75 mg PO DAILY [facility] Last Admin: 02/18/16 10:08 Dose: 75 mg Enoxaparin Sodium (Lovenox) 40 mg SC DAILY [facility] Last Admin: 02/18/16 10:08 Dose: 40 mg Lisinopril (Zestril) 5 mg PO DAILY [facility] Last Admin: 02/18/16 10:08 Dose: 5 mg Oxybutynin Chloride (Ditropan Tab) 5 mg PO TID [facility] Last Admin: 02/18/16 10:08 Dose: 5 mg Phenytoin (Dilantin) 100 mg PEG TID [facility] Last Admin: 02/18/16 10:08 Dose: 100 mg Polyethylene Glycol (Miralax) 17 gm PEG BID [facility] Last Admin: 02/14/16 10:48 Dose: Not Given - Labs Labs: 02/12/16 07:01 02/12/16 07:01 PT 10.6 SECONDS (9.7-12.2) 11/24/15 14:10 INR 1.0 11/24/15 14:10 APTT 25 SECONDS (21-34) 11/24/15 14:10 - Constitutional Appears: Non-toxic - Head Exam Head Exam: ATRAUMATIC, NORMAL INSPECTION, NORMOCEPHALIC - Eye Exam Eye Exam: Normal appearance, PERRL Pupil Exam: NORMAL ACCOMODATION - ENT Exam ENT Exam: Mucous Membranes Dry. absent: Normal Exam - Respiratory Exam Respiratory Exam: Clear to Ausculation Bilateral. absent: Rhonchi, Wheezes - Cardiovascular Exam Cardiovascular Exam: RRR, +S1, +S2. absent: Gallop, Rubs - GI/Abdominal Exam GI & Abdominal Exam: Soft - Extremities Exam Extremities Exam: absent: Pedal Edema - Skin Skin Exam: Diaphoretic Assessment and Plan - Assessment and Plan (Free Text) Assessment: 1) Anoxic encephalopathy Assessment & Plan: 02/17: No acute changes in mental status, tolerating trach collar. 02/16: Tolerating trach collar, no acute changes overnight 02/13: Patient seen in room, tolerating trach collar, no acute mental changes. 02/12: CXR today read as: Linear atelectasis at the bases. Cardiomegaly, CXR ordered because the patient's breath sounds were not clear, he is tolerating trach ventilator support, no change in mental status. 02/11: No changes in mental status, continue supportive care. 02/10: No mental status change, patient in bed, tolerating trach collar. 02/09: No changes overnight, peg tube in place operational, trach collar in place. 02/08: No changes, peg tube in place and operational, trach collar in place as well, no bloody discharge noted, 02/07: no acute changes, peg tube in place it is operational. 02/06: No new events, patient seen with family in room, recommend to family to cut families finger nails, keep trach collar in place, patient tolerating peg feeding. 02/05: No new events, will continue Trach collar in place, peg feeding. 02/04: No new events, continue supportive care. 02/03: New new events, continue supportive care 01/31: No new events, tolerating peg tube feeding, continue supportive care. 01/30--> no new events, non verbal, tolerating Peg tube feeding, supportive management 01/29: no change, peg and trach in place 01/28: No acute changes in mental status, 01/27: No acute changes, patient not in respiratory distress. 01/26: No acute changes, peg tube in place, operational, running still at 50 cc/ hr at night with a bolus feed during the day 3: No acute changes, peg tube in place, operational, running still at 50 cc/ hr at night with a bolus feed during the day. 3: no acute changes, pet tube in place it is operational. 01/23: No acute changes in mental status. 3: NO acute changes in mental satus, peg tube in place and operational, thick white secretion from trach tube. 3: No acute change in mental status, peg tube operational no signs of blockage or infection(bolus during day and 50cc/hr at night. No acute change in mental status. PEG tube operational, tube feedings running at 50cc/hr at night and bolus feeds during the day 12/28: PEG tube placed at bedside by Dr. Chan. Abdominal X-ray showed PEG tube in position with contrast entering appropriately. PEG tube approved for use. GCS 8 [id number] patient with trach in place. Pending placement training family in how to take care of patient (2) Respiratory failure Assessment & Plan: 02/16: Tolerating trach, continue ventilator support. 02/13: Trach collar in place. 02/12: CXR today read as: Linear atelectasis at the bases. Cardiomegaly, CXR ordered because the patient's breath sounds were not clear. 02/11: Patient tolerating trach collar, clear mucus discharge, no sign of infection 02/10: No respiratory distress, trach collar in place, clear mucus discharge, no sign of infection. 02/09: Trach collar in place, continue free water flushes, no bloody discharge 02/08, Trach collar in place, continue free water flushes 02/07:Trach collar in place, no respiratory distress, continue free water flushes 02/06: Trach in place, continue ventilator support 02/04: Trach collar in place, Respiratory did some suction. 02/03: Tolerating trach collar, continue free water fluesh 300 cc q8h. 01/31: Trach Collar in place, continue free water flushes 300 cc q8h. 01/30--> tolerating on Trach Collar, 01/29: trach in place, no resp distress, 01/28: Trach collar in place, no respiratory distress, continue free water flushes 01/27: No respiratory distress, white secretions noted, continue free water flushes at 300 cc q8h. 01/26: Trach collar in place, white secretions still noted, continue free water flushes at 300 cc/hr. 01/25: Trach collar in place, white secretions still noted, continue free water flushes at 300 cc/hr. 01/24: No acute changes, tranch collar in place. Still using free water flushes at 300cc q6h, white secretions still noted. 01/23: Trach collar in place with same oxygen level of 6L, white secretions noted. 3: No acute changes, trach collar in place at same level of 6L oxygen, thick white secretions noted. 01/21: No interval change, trach collar in place 6L O2 still, no secretions. no interval change. trach collar at 6L O2. No secretions noted this morning. Trach collar in place. Sputum culture 12/06 + pseudomonas: probably colonization. afebrile. normal white count. CXR without infiltrates. No antibiotics for now per Dr. Armstrong tracheostomy with tube change by Dr. Chan on 11/27/15 CXR 12/08--> Tracheostomy tube appears deviated to the left which may be related to patient positioning. Clinical correlation as this does not project over the midline trachea. Bibasilar atelectasis. Mild stable nodularity at the right lung base. (see full report) Cipro started on 11/30 was stopped on 12/08. clean and dry site saturating well on 7L O2 via trach collar No blood tinged secretions noted Bronchial washing grew Pseudomonas ID consult - Dr. Armstrong - help appreciated Working on getting portable suctioning for family to practice (3) Urinary tract infection Assessment & Plan: 02/17: Baker in place, no sign of leakage, urine is clear. 02/15: Baker in place, urine clear. 02/13: Baker in place, no sign of leak, urine is clear. 02/12: Baker in place, no sign of leak, urine is clear. 02/11: Baker in place, no sign of leak, urine is clear 02/10: Baker in place, no sign of leak, urine is clear. 02/09: Baker in place in urine clear 02/08: Baker in place, urine clear 02/07: baker changed this AM - urine clear 02/06: plan to change baker catheter tomorrow, urine clear. 02/04: Baker in place, urine clear. 02/03: Baker in place, urine clear, will change baker every 3 weeks. 01/31: Baker in place, clear color urine, no bleeding, continue to monitor. 01/30--> Baker;s in place, clear color urine, no bleeding, 01/29: baker in place 01/27: Resolved, Baker in place, urine is clear. 01/26: Resolved, Baker in place, 01/25: Resolved, Baker in place, urine is clear color this morning. 01/24: Resolved, Baker in place, urine is a more dark yellow color. 01/23: Resolved, Bakre in place, urine is clear color. 01/22: Resolved no acute changes. 01/21: Resolved no changes afebrile, continue monitoring for fever 01/18: afebrile overnight. WBC 9.5 yesterday. CBC to be done twice weekly, unless increased frequency is clinically indicated 01/14: Off IV Zosyn, continue baker catheter. f/u CBC and monitor VS 01/13: Stop IV Zosyn today. 01/12: Continue IV Zosyn at this time with plan to dc on 01/13 per ID 01/11: continue Zosyn 3.375gm IVPB Q6H (day 5) will discontinue on 01/13/1601/09: Will speak with Dr. Armstrong regarding length of IV antibiotic therapy. In the meantime, continue Zosyn 3.375gm IVPB Q6H. Continue monitoring CBC and for fevers. 01/07: Continue Zosyn 3.375gm IVPB Q6H. Monitor for fevers, Monitor CBC 01/06: urine culture positive for proteus mirabilis (sensitive to tobramycin, zosyn, amikacin, gentamicin). baker catheter to be re-inserted. Switch to Zosyn 3.375gm IVPB Q6H per Dr. Armstrong. 01/05: f/u urine culture sensitivities. Continue Primaxin 500mg IVPB Q8H as per Dr. Armstrong. 01/04: Urine culture + for gram negative rods. spoke with Dr. Armstrong. switched rocephin to primaxin 500mg IVPB Q8H [place] catheter ordered to be used with skin prep to keep it on 01/03: urinalysis had 4+ protein, positive nitrates, 3+ leukocyte esterase. Rocephin 1gm IVPB daily started. Continue [place] catheter. Ditropan 5mg PEG TID for leakage around catheter Urology consult - Dr. Oropeza - help appreciated ID on board - Dr. Armstrong - help appreciated (4) CAD (coronary artery disease) Assessment & Plan: No new events. Cardiac stents on 06/13/15. Continue Lisinopril 5mg PO daily Continue Plavix 75mg PO daily Continue ASA 325mg PO daily-currently held due to recent trach bleeding (5) Seizures Assessment & Plan: 02/10: No active seizure, continue dilantin 100mg tid through peg tube. 02/09: no active seizure, continue dilantin 100mg tid through peg tube. no active seizures, continue dilantin 100mg tid through peg tube, continue to monitor patient closely. No active seizure, continue dilantin 100mg through peg tube TID Continue dilantin 100mg PEG TID SZ percaution, Fall precaution (6) Bed sore Assessment & Plan: 02/17: Bed sore stage 2 atleast sacral decubitis area, have used medihoney and dressing. Continue to monitor closely. 02/11: Healed pressure ulcer, skin excoration noted, will continue move patient q2h. 02/10: No change, will continue to monitor twice a week. 02/07: continue to monitor twice a week. no changes 02/06: No Change, continue to check every 2 weeks. 02/04: Evaluated this morning, healed sacral decubitus wound present, continue move patient q2h. 02/03: Continue move patient q2h, continue check patient twice a week. 01/30--> Healed Sacral decubitus wound 01/27: Ecchymosis like bruising around his left hip and buttock area, will continue to monitor closely, monitor cbc closely as well. 01/27: No change, resolved, continue to monitor twice a week. 01/26: No change, continue to monitor twice a week. 01/25: No change, will continue to check twice a week. 01/24: No change, monitor twice a week 01/22: Monitor twice a week. 01/21: Resolved, continue to monitor patient twice a week. : sacral ulcer to be evaluated minimum twice per week. 01/19: Sacral ulcer healed, Stage 0 2/23: Sacral ulcer improving considerably, Stage I (one) ulcer observed, non- open continue wound care, sensicare, and medihoney sacral ulcer. Stage II 0.5cm x 1.5cm Continue wound care, sensicare and medihoney. Continue repositioning of patient q2H. dolphin mattress. Heel air boots. (7) Prophylactic measure Assessment & Plan: Lovenox 40 SC daily Pepcid 20 mg PO BID [facility] <Donnell Ying - Last Filed: 02/18/16 17:15> Objective - Vital Signs/Intake and Output Vital Signs (last 24 hours): Temp Pulse Resp BP Pulse Ox 97.9 F 90 20 120/85 99 02/18/16 16:05 02/18/16 16:05 02/18/16 16:05 02/18/16 16:05 02/18/16 16:05 Intake and Output: 02/18/16 02/18/16 06:59 18:59 Intake Total 500 1500 Output Total 1300 800 Balance -800 700 - Medications Medications: Current Medications Aspirin (Aspirin) 325 mg PO DAILY [facility] Last Admin: 11/23/15 09:42 Dose: 325 mg Clopidogrel Bisulfate (Plavix) 75 mg PO DAILY [facility] Last Admin: 02/18/16 10:08 Dose: 75 mg Enoxaparin Sodium (Lovenox) 40 mg SC DAILY [facility] Last Admin: 02/18/16 10:08 Dose: 40 mg Lisinopril (Zestril) 5 mg PO DAILY [facility] Last Admin: 02/18/16 10:08 Dose: 5 mg Oxybutynin Chloride (Ditropan Tab) 5 mg PO TID [facility] Last Admin: 02/18/16 14:46 Dose: 5 mg Phenytoin (Dilantin) 100 mg PEG TID [facility] Last Admin: 02/18/16 14:44 Dose: 100 mg Polyethylene Glycol (Miralax) 17 gm PEG BID [facility] Last Admin: 02/14/16 10:48 Dose: Not Given - Labs Labs: 02/12/16 07:01 02/12/16 07:01 PT 10.6 SECONDS (9.7-12.2) 11/24/15 14:10 INR 1.0 11/24/15 14:10 APTT 25 SECONDS (21-34) 11/24/15 14:10 Attending/Attestation - Attestation I have personally seen and examined this patient.: Yes I have fully participated in the care of the patient.: Yes I have reviewed all pertinent clinical information, including history, physical exam and plan: Yes Notes (Text): 02/18/16 17:13 Patient was seen and examined at bedside with the resident. Continue current management. Continue to turn and position every 2 hours. Local wound care for sacral/buttock decubitus ulcer. Continue care of tracheostomy and PEG tube. Discussed with nursing staff.
--- NOTE | 2016-02-19 09:15 | CP.PCM.PN ---
<Joel Lin - Last Filed: 02/19/16 15:38> Subjective - Date & Time of Evaluation Date of Evaluation: 02/19/16 Time of Evaluation: 09:30 - Subjective Subjective: Patient seen this morning. Noticed some oral thrush in patient's mouth as he was yawning. No other changes in mental status. No purposeful movement. No over night changes per nursing staff. Objective - Vital Signs/Intake and Output Vital Signs (last 24 hours): Temp Pulse Resp BP Pulse Ox 98.6 F 83 20 145/85 97 02/19/16 07:42 02/19/16 07:42 02/19/16 07:42 02/19/16 07:42 02/19/16 07:42 Intake and Output: 02/19/16 02/19/16 06:59 18:59 Intake Total 800 700 Output Total 800 600 Balance 0 100 - Medications Medications: Current Medications Aspirin (Aspirin) 325 mg PO DAILY [facility] Last Admin: 11/23/15 09:42 Dose: 325 mg Clopidogrel Bisulfate (Plavix) 75 mg PO DAILY [facility] Last Admin: 02/18/16 10:08 Dose: 75 mg Enoxaparin Sodium (Lovenox) 40 mg SC DAILY [facility] Last Admin: 02/18/16 10:08 Dose: 40 mg Lisinopril (Zestril) 5 mg PO DAILY [facility] Last Admin: 02/18/16 10:08 Dose: 5 mg Oxybutynin Chloride (Ditropan Tab) 5 mg PO TID [facility] Last Admin: 02/18/16 18:34 Dose: 5 mg Phenytoin (Dilantin) 100 mg PEG TID [facility] Last Admin: 02/18/16 18:34 Dose: 100 mg Polyethylene Glycol (Miralax) 17 gm PEG BID [facility] Last Admin: 02/14/16 10:48 Dose: Not Given - Labs Labs: 02/12/16 07:01 02/12/16 07:01 PT 10.6 SECONDS (9.7-12.2) 11/24/15 14:10 INR 1.0 11/24/15 14:10 APTT 25 SECONDS (21-34) 11/24/15 14:10 - Constitutional Appears: Chronically Ill - Head Exam Head Exam: ATRAUMATIC, NORMAL INSPECTION, NORMOCEPHALIC - Eye Exam Eye Exam: Normal appearance, PERRL Pupil Exam: NORMAL ACCOMODATION - ENT Exam ENT Exam: Mucous Membranes Moist Additional comments: white plaques in mouth - Neck Exam Neck Exam: Normal Inspection Additional comments: trach collar in place thick secretions noted. - Respiratory Exam Respiratory Exam: Clear to Ausculation Bilateral. absent: Rales, Rhonchi, Wheezes - Cardiovascular Exam Cardiovascular Exam: REGULAR RHYTHM, RRR, +S1, +S2. absent: Gallop, Rubs - GI/Abdominal Exam GI & Abdominal Exam: Soft, Normal Bowel Sounds. absent: Guarding, Tenderness, Rebound - Extremities Exam Extremities Exam: Normal Inspection. absent: Pedal Edema - Back Exam Back Exam: NORMAL INSPECTION - Skin Skin Exam: Diaphoretic Assessment and Plan - Assessment and Plan (Free Text) Assessment: New problem oral thrus, started Nystatin today. Will have nurse use free water to clean tongue with Nyastatin. Assessment: 1) Anoxic encephalopathy Assessment & Plan: 02/18: No acute changes in mental status, tolerating trach collar 02/17: No acute changes in mental status, tolerating trach collar. 02/16: Tolerating trach collar, no acute changes overnight 02/13: Patient seen in room, tolerating trach collar, no acute mental changes. 02/12: CXR today read as: Linear atelectasis at the bases. Cardiomegaly, CXR ordered because the patient's breath sounds were not clear, he is tolerating trach ventilator support, no change in mental status. 02/11: No changes in mental status, continue supportive care. 02/10: No mental status change, patient in bed, tolerating trach collar. 02/09: No changes overnight, peg tube in place operational, trach collar in place. 02/08: No changes, peg tube in place and operational, trach collar in place as well, no bloody discharge noted, 02/07: no acute changes, peg tube in place it is operational. 02/06: No new events, patient seen with family in room, recommend to family to cut families finger nails, keep trach collar in place, patient tolerating peg feeding. 02/05: No new events, will continue Trach collar in place, peg feeding. 02/04: No new events, continue supportive care. 02/03: New new events, continue supportive care 01/31: No new events, tolerating peg tube feeding, continue supportive care. 01/30--> no new events, non verbal, tolerating Peg tube feeding, supportive management 01/29: no change, peg and trach in place 01/28: No acute changes in mental status, 01/27: No acute changes, patient not in respiratory distress. 01/26: No acute changes, peg tube in place, operational, running still at 50 cc/ hr at night with a bolus feed during the day 01/25: No acute changes, peg tube in place, operational, running still at 50 cc/ hr at night with a bolus feed during the day. 01/24: no acute changes, pet tube in place it is operational. 01/23: No acute changes in mental status. 01/22: NO acute changes in mental satus, peg tube in place and operational, thick white secretion from trach tube. 01/21: No acute change in mental status, peg tube operational no signs of blockage or infection(bolus during day and 50cc/hr at night. No acute change in mental status. PEG tube operational, tube feedings running at 50cc/hr at night and bolus feeds during the day 12/28: PEG tube placed at bedside by Dr. Chan. Abdominal X-ray showed PEG tube in position with contrast entering appropriately. PEG tube approved for use. GCS 8 [id number] patient with trach in place. Pending placement training family in how to take care of patient (2) Respiratory failure Assessment & Plan: 02/18: Tolerating trach collar, thick secretions noted. 02/16: Tolerating trach, continue ventilator support. 02/13: Trach collar in place. 02/12: CXR today read as: Linear atelectasis at the bases. Cardiomegaly, CXR ordered because the patient's breath sounds were not clear. 02/11: Patient tolerating trach collar, clear mucus discharge, no sign of infection 02/10: No respiratory distress, trach collar in place, clear mucus discharge, no sign of infection. 02/09: Trach collar in place, continue free water flushes, no bloody discharge 02/08, Trach collar in place, continue free water flushes 02/07:Trach collar in place, no respiratory distress, continue free water flushes 02/06: Trach in place, continue ventilator support 02/04: Trach collar in place, Respiratory did some suction. 02/03: Tolerating trach collar, continue free water fluesh 300 cc q8h. 01/31: Trach Collar in place, continue free water flushes 300 cc q8h. 01/30--> tolerating on Trach Collar, 01/29: trach in place, no resp distress, 01/28: Trach collar in place, no respiratory distress, continue free water flushes 01/27: No respiratory distress, white secretions noted, continue free water flushes at 300 cc q8h. 01/26: Trach collar in place, white secretions still noted, continue free water flushes at 300 cc/hr. 01/25: Trach collar in place, white secretions still noted, continue free water flushes at 300 cc/hr. 01/24: No acute changes, tranch collar in place. Still using free water flushes at 300cc q6h, white secretions still noted. 01/23: Trach collar in place with same oxygen level of 6L, white secretions noted. 01/22: No acute changes, trach collar in place at same level of 6L oxygen, thick white secretions noted. 01/21: No interval change, trach collar in place 6L O2 still, no secretions. no interval change. trach collar at 6L O2. No secretions noted this morning. Trach collar in place. Sputum culture 12/06 + pseudomonas: probably colonization. afebrile. normal white count. CXR without infiltrates. No antibiotics for now per Dr. Armstrong tracheostomy with tube change by Dr. Chan on 11/27/15 CXR 12/08--> Tracheostomy tube appears deviated to the left which may be related to patient positioning. Clinical correlation as this does not project over the midline trachea. Bibasilar atelectasis. Mild stable nodularity at the right lung base. (see full report) Cipro started on 11/30 was stopped on 12/08. clean and dry site saturating well on 7L O2 via trach collar No blood tinged secretions noted Bronchial washing grew Pseudomonas ID consult - Dr. Armstrong - help appreciated Working on getting portable suctioning for family to practice (3) Urinary tract infection Assessment & Plan: 02/17: Baker in place, no sign of leakage, urine is clear. 02/15: Baker in place, urine clear. 02/13: Baker in place, no sign of leak, urine is clear. 02/12: Baker in place, no sign of leak, urine is clear. 02/11: Baker in place, no sign of leak, urine is clear 02/10: Baker in place, no sign of leak, urine is clear. 02/09: Baker in place in urine clear 02/08: Baker in place, urine clear 02/07: baker changed this AM - urine clear 02/06: plan to change baker catheter tomorrow, urine clear. 02/04: Baker in place, urine clear. 02/03: Baker in place, urine clear, will change baker every 3 weeks. 01/31: Baker in place, clear color urine, no bleeding, continue to monitor. 01/30--> Baker;s in place, clear color urine, no bleeding, 01/29: baker in place 01/27: Resolved, Baker in place, urine is clear. 01/26: Resolved, Baker in place, 01/25: Resolved, Baker in place, urine is clear color this morning. 01/24: Resolved, Baker in place, urine is a more dark yellow color. 01/23: Resolved, Baker in place, urine is clear color. 01/22: Resolved no acute changes. 01/21: Resolved no changes afebrile, continue monitoring for fever 01/18: afebrile overnight. WBC 9.5 yesterday. CBC to be done twice weekly, unless increased frequency is clinically indicated 01/14: Off IV Zosyn, continue baker catheter. f/u CBC and monitor VS 01/13: Stop IV Zosyn today. 01/12: Continue IV Zosyn at this time with plan to dc on 01/13 per ID 01/11: continue Zosyn 3.375gm IVPB Q6H (day 5) will discontinue on 01/13/1601/09: Will speak with Dr. Armstrong regarding length of IV antibiotic therapy. In the meantime, continue Zosyn 3.375gm IVPB Q6H. Continue monitoring CBC and for fevers. 01/07: Continue Zosyn 3.375gm IVPB Q6H. Monitor for fevers, Monitor CBC 01/06: urine culture positive for proteus mirabilis (sensitive to tobramycin, zosyn, amikacin, gentamicin). baker catheter to be re-inserted. Switch to Zosyn 3.375gm IVPB Q6H per Dr. Armstrong. 01/05: f/u urine culture sensitivities. Continue Primaxin 500mg IVPB Q8H as per Dr. Armstrong. 01/04: Urine culture + for gram negative rods. spoke with Dr. Armstrong. switched rocephin to primaxin 500mg IVPB Q8H [place] catheter ordered to be used with skin prep to keep it on 01/03: urinalysis had 4+ protein, positive nitrates, 3+ leukocyte esterase. Rocephin 1gm IVPB daily started. Continue [place] catheter. Ditropan 5mg PEG TID for leakage around catheter Urology consult - Dr. Oropeza - help appreciated ID on board - Dr. Armstrong - help appreciated (4) CAD (coronary artery disease) Assessment & Plan: No new events. Cardiac stents on 06/13/15. Continue Lisinopril 5mg PO daily Continue Plavix 75mg PO daily Continue ASA 325mg PO daily-currently held due to recent trach bleeding (5) Seizures Assessment & Plan: 02/10: No active seizure, continue dilantin 100mg tid through peg tube. 02/09: no active seizure, continue dilantin 100mg tid through peg tube. no active seizures, continue dilantin 100mg tid through peg tube, continue to monitor patient closely. No active seizure, continue dilantin 100mg through peg tube TID Continue dilantin 100mg PEG TID SZ percaution, Fall precaution (6) Bed sore Assessment & Plan: 02/17: Bed sore stage 2 atleast sacral decubitis area, have used medihoney and dressing. Continue to monitor closely. 02/11: Healed pressure ulcer, skin excoration noted, will continue move patient q2h. 02/10: No change, will continue to monitor twice a week. 02/07: continue to monitor twice a week. no changes 02/06: No Change, continue to check every 2 weeks. 02/04: Evaluated this morning, healed sacral decubitus wound present, continue move patient q2h. 02/03: Continue move patient q2h, continue check patient twice a week. 01/30--> Healed Sacral decubitus wound 01/27: Ecchymosis like bruising around his left hip and buttock area, will continue to monitor closely, monitor cbc closely as well. 3: No change, resolved, continue to monitor twice a week. 01/26: No change, continue to monitor twice a week. 01/25: No change, will continue to check twice a week. 01/24: No change, monitor twice a week 01/22: Monitor twice a week. 01/21: Resolved, continue to monitor patient twice a week. : sacral ulcer to be evaluated minimum twice per week. 01/19: Sacral ulcer healed, Stage 0 01/15: Sacral ulcer improving considerably, Stage I (one) ulcer observed, non- open continue wound care, sensicare, and medihoney sacral ulcer. Stage II 0.5cm x 1.5cm Continue wound care, sensicare and medihoney. Continue repositioning of patient q2H. dolphin mattress. Heel air boots. (7) Prophylactic measure Assessment & Plan: Lovenox 40 SC daily Pepcid 20 mg PO BID [facility] <Donnell Ying - Last Filed: 02/19/16 16:56> Objective - Vital Signs/Intake and Output Vital Signs (last 24 hours): Temp Pulse Resp BP Pulse Ox 98.6 F 83 20 145/85 97 02/19/16 07:42 02/19/16 14:45 02/19/16 07:42 02/19/16 07:42 02/19/16 07:42 Intake and Output: 02/19/16 02/19/16 06:59 18:59 Intake Total 800 700 Output Total 800 1100 Balance 0 -400 - Medications Medications: Current Medications Aspirin (Aspirin) 325 mg PO DAILY [facility] Last Admin: 11/23/15 09:42 Dose: 325 mg Clopidogrel Bisulfate (Plavix) 75 mg PO DAILY [facility] Last Admin: 02/19/16 10:51 Dose: 75 mg Enoxaparin Sodium (Lovenox) 40 mg SC DAILY [facility] Last Admin: 02/19/16 10:50 Dose: 40 mg Lisinopril (Zestril) 5 mg PO DAILY [facility] Last Admin: 02/19/16 10:51 Dose: 5 mg Nystatin (Nystatin Oral Susp) 5 ml PO QID [facility] Last Admin: 02/19/16 14:02 Dose: 5 ml Oxybutynin Chloride (Ditropan Tab) 5 mg PO TID [facility] Last Admin: 02/19/16 14:01 Dose: 5 mg Phenytoin (Dilantin) 100 mg PEG TID [facility] Last Admin: 02/19/16 14:01 Dose: 100 mg Polyethylene Glycol (Miralax) 17 gm PEG BID [facility] Last Admin: 02/14/16 10:48 Dose: Not Given - Labs Labs: 02/12/16 07:01 02/12/16 07:01 PT 10.6 SECONDS (9.7-12.2) 11/24/15 14:10 INR 1.0 11/24/15 14:10 APTT 25 SECONDS (21-34) 11/24/15 14:10 Attending/Attestation - Attestation I have personally seen and examined this patient.: Yes I have fully participated in the care of the patient.: Yes I have reviewed all pertinent clinical information, including history, physical exam and plan: Yes Notes (Text): 02/19/16 16:53 Patient seen and examined at bedside No acute events overnight Turn and position every 2 hours Local wound care for DU Continue current management
[2016-02-19] MEDS: Enoxaparin 40 mg Syringe SC SCH (10:50)
[2016-02-19] MEDS: Phenytoin 100 mg/4 ml Oral Susp UD PEG SCH ×3 (10:51→18:16)
[2016-02-19] MEDS: Nystatin 100,000 Units/ml Oral Susp 5 ml UD PO SCH ×3 (14:02→23:18)
[2016-02-20 09:12] LABS: BASO % 0.6 % (0.0-2.0); EOS # 0.7 K/uL (0.0-0.7); EOS % 7.9 % (0.0-4.0); HEMOGLOBIN 13.6 g/dL (12.0-18.0); LYMPH # 1.9 K/uL (1.0-4.3); LYMPH % 22.4 % (20.0-40.0); MEAN CORPUSCULAR HEMOGLOBIN 30.7 pg (27.0-31.0); MEAN CORPUSCULAR HGB CONC 33.4 g/dL (33.0-37.0); MEAN PLATELET VOLUME 8.2 fL (7.2-11.7); MONO % 11.1 % (0.0-10.0); RBC 4.43 Mil/uL (4.40-5.90); WHITE BLOOD COUNT 8.7 K/uL (4.8-10.8)
[2016-02-20 09:27] LABS: ALBUMIN 3.6 g/dL (3.5-5.0)
[2016-02-20 09:30] LABS: ALB/GLOB RATIO 0.8 (1.0-2.1); AST/SGOT 29 U/L (17-59); BLOOD UREA NITROGEN 18 mg/dL (9-20); GFR NON-AFRICAN AMERICAN > 60
[2016-02-20 09:31] LABS: ALT/SGPT 72 U/L (21-72); CALCIUM 9.5 mg/dL (8.4-10.2)
--- NOTE | 2016-02-20 09:38 | CP.PCM.PN ---
<Joel Lin Michelle - Last Filed: 02/20/16 14:01> Subjective - Date & Time of Evaluation Date of Evaluation: 02/20/16 Time of Evaluation: 09:20 - Subjective Subjective: Patient seen in room, no acute changes per Nursing staff. Objective - Vital Signs/Intake and Output Vital Signs (last 24 hours): Temp Pulse Resp BP Pulse Ox 98.4 F 85 20 123/79 97 02/20/16 07:54 02/20/16 07:54 02/20/16 07:54 02/20/16 07:54 02/20/16 07:54 Intake and Output: 02/20/16 02/20/16 06:59 18:59 Intake Total 1600 Output Total 900 Balance 700 - Medications Medications: Current Medications Aspirin (Aspirin) 325 mg PO DAILY [facility] Last Admin: 11/23/15 09:42 Dose: 325 mg Clopidogrel Bisulfate (Plavix) 75 mg PO DAILY [facility] Last Admin: 02/19/16 10:51 Dose: 75 mg Enoxaparin Sodium (Lovenox) 40 mg SC DAILY [facility] Last Admin: 02/19/16 10:50 Dose: 40 mg Lisinopril (Zestril) 5 mg PO DAILY [facility] Last Admin: 02/19/16 10:51 Dose: 5 mg Nystatin (Nystatin Oral Susp) 5 ml PO QID [facility] Last Admin: 02/19/16 23:18 Dose: 5 ml Oxybutynin Chloride (Ditropan Tab) 5 mg PO TID [facility] Last Admin: 02/19/16 18:16 Dose: 5 mg Phenytoin (Dilantin) 100 mg PEG TID [facility] Last Admin: 02/19/16 18:16 Dose: 100 mg Polyethylene Glycol (Miralax) 17 gm PEG BID [facility] Last Admin: 02/14/16 10:48 Dose: Not Given - Labs Labs: 02/20/16 08:57 02/20/16 08:57 PT 10.6 SECONDS (9.7-12.2) 11/24/15 14:10 INR 1.0 11/24/15 14:10 APTT 25 SECONDS (21-34) 11/24/15 14:10 - Constitutional Appears: Chronically Ill - Head Exam Head Exam: ATRAUMATIC, NORMAL INSPECTION, NORMOCEPHALIC - Eye Exam Eye Exam: Normal appearance, PERRL Pupil Exam: NORMAL ACCOMODATION - ENT Exam ENT Exam: Normal Exam - Neck Exam Neck Exam: Normal Inspection Additional comments: Trach collar in place, thick yellow secretions - Respiratory Exam Respiratory Exam: Clear to Ausculation Bilateral. absent: Rales, Rhonchi, Wheezes - Cardiovascular Exam Cardiovascular Exam: REGULAR RHYTHM, RRR, +S1, +S2. absent: Gallop, Rubs - GI/Abdominal Exam GI & Abdominal Exam: Soft, Normal Bowel Sounds - Extremities Exam Extremities Exam: Normal Inspection - Back Exam Back Exam: absent: NORMAL INSPECTION - Neurological Exam Neurological Exam: absent: Alert - Skin Skin Exam: Dry, Normal Color, Warm Additional comments: Sacral decubitis stage 2 on left side, unchanged from yesterday. Assessment and Plan - Assessment and Plan (Free Text) Assessment: 1) Anoxic encephalopathy Assessment & Plan: 02/19: No acute changes per nursing staff, patient still on oxygen, NOT VENTILATOR SUPPORT!! 02/18: No acute changes in mental status, tolerating trach collar 02/17: No acute changes in mental status, tolerating trach collar. 02/16: Tolerating trach collar, no acute changes overnight 02/13: Patient seen in room, tolerating trach collar, no acute mental changes. 02/12: CXR today read as: Linear atelectasis at the bases. Cardiomegaly, CXR ordered because the patient's breath sounds were not clear, he is tolerating trach ventilator support, no change in mental status. 02/11: No changes in mental status, continue supportive care. 02/10: No mental status change, patient in bed, tolerating trach collar. 02/09: No changes overnight, peg tube in place operational, trach collar in place. 02/08: No changes, peg tube in place and operational, trach collar in place as well, no bloody discharge noted, 02/07: no acute changes, peg tube in place it is operational. 02/06: No new events, patient seen with family in room, recommend to family to cut families finger nails, keep trach collar in place, patient tolerating peg feeding. 02/05: No new events, will continue Trach collar in place, peg feeding. 02/04: No new events, continue supportive care. 02/03: New new events, continue supportive care 01/31: No new events, tolerating peg tube feeding, continue supportive care. 01/30--> no new events, non verbal, tolerating Peg tube feeding, supportive management 01/29: no change, peg and trach in place 01/28: No acute changes in mental status, 01/27: No acute changes, patient not in respiratory distress. 01/26: No acute changes, peg tube in place, operational, running still at 50 cc/ hr at night with a bolus feed during the day 01/25: No acute changes, peg tube in place, operational, running still at 50 cc/ hr at night with a bolus feed during the day. 01/24: no acute changes, pet tube in place it is operational. 01/23: No acute changes in mental status. 01/22: NO acute changes in mental satus, peg tube in place and operational, thick white secretion from trach tube. 01/21: No acute change in mental status, peg tube operational no signs of blockage or infection(bolus during day and 50cc/hr at night. No acute change in mental status. PEG tube operational, tube feedings running at 50cc/hr at night and bolus feeds during the day 12/28: PEG tube placed at bedside by Dr. Chan. Abdominal X-ray showed PEG tube in position with contrast entering appropriately. PEG tube approved for use. GCS 8 [id number] patient with trach in place. Pending placement training family in how to take care of patient (2) Respiratory failure Assessment & Plan: 02/18: Tolerating trach collar, thick secretions noted. 02/16: Tolerating trach, continue ventilator support. 02/13: Trach collar in place. 02/12: CXR today read as: Linear atelectasis at the bases. Cardiomegaly, CXR ordered because the patient's breath sounds were not clear. 02/11: Patient tolerating trach collar, clear mucus discharge, no sign of infection 02/10: No respiratory distress, trach collar in place, clear mucus discharge, no sign of infection. 02/09: Trach collar in place, continue free water flushes, no bloody discharge 02/08, Trach collar in place, continue free water flushes 02/07:Trach collar in place, no respiratory distress, continue free water flushes 02/06: Trach in place, continue ventilator support 02/04: Trach collar in place, Respiratory did some suction. 02/03: Tolerating trach collar, continue free water fluesh 300 cc q8h. 01/31: Trach Collar in place, continue free water flushes 300 cc q8h. 01/30--> tolerating on Trach Collar, 01/29: trach in place, no resp distress, 01/28: Trach collar in place, no respiratory distress, continue free water flushes 01/27: No respiratory distress, white secretions noted, continue free water flushes at 300 cc q8h. 01/26: Trach collar in place, white secretions still noted, continue free water flushes at 300 cc/hr. 01/25: Trach collar in place, white secretions still noted, continue free water flushes at 300 cc/hr. 01/24: No acute changes, tranch collar in place. Still using free water flushes at 300cc q6h, white secretions still noted. 01/23: Trach collar in place with same oxygen level of 6L, white secretions noted. 01/22: No acute changes, trach collar in place at same level of 6L oxygen, thick white secretions noted. 01/21: No interval change, trach collar in place 6L O2 still, no secretions. no interval change. trach collar at 6L O2. No secretions noted this morning. Trach collar in place. Sputum culture 12/06 + pseudomonas: probably colonization. afebrile. normal white count. CXR without infiltrates. No antibiotics for now per Dr. Armstrong tracheostomy with tube change by Dr. Chan on 11/27/15 CXR 12/08--> Tracheostomy tube appears deviated to the left which may be related to patient positioning. Clinical correlation as this does not project over the midline trachea. Bibasilar atelectasis. Mild stable nodularity at the right lung base. (see full report) Cipro started on 11/30 was stopped on 12/08. clean and dry site saturating well on 7L O2 via trach collar No blood tinged secretions noted Bronchial washing grew Pseudomonas ID consult - Dr. Armstrong - help appreciated Working on getting portable suctioning for family to practice (3) Urinary tract infection Assessment & Plan: 02/17: Baker in place, no sign of leakage, urine is clear. 02/15: Baker in place, urine clear. 02/13: Baker in place, no sign of leak, urine is clear. 02/12: Baker in place, no sign of leak, urine is clear. 02/11: Baker in place, no sign of leak, urine is clear 02/10: Baker in place, no sign of leak, urine is clear. 02/09: Baker in place in urine clear 02/08: Baker in place, urine clear 02/07: baker changed this AM - urine clear 02/06: plan to change baker catheter tomorrow, urine clear. 02/04: Baker in place, urine clear. 02/03: Baker in place, urine clear, will change baker every 3 weeks. 01/31: Baker in place, clear color urine, no bleeding, continue to monitor. 01/30--> Baker;s in place, clear color urine, no bleeding, 01/29: baker in place 01/27: Resolved, Baker in place, urine is clear. 01/26: Resolved, Baker in place, 01/25: Resolved, Baker in place, urine is clear color this morning. 01/24: Resolved, Baker in place, urine is a more dark yellow color. 01/23: Resolved, Baker in place, urine is clear color. 01/22: Resolved no acute changes. 01/21: Resolved no changes afebrile, continue monitoring for fever 01/18: afebrile overnight. WBC 9.5 yesterday. CBC to be done twice weekly, unless increased frequency is clinically indicated 01/14: Off IV Zosyn, continue baker catheter. f/u CBC and monitor VS 01/13: Stop IV Zosyn today. 01/12: Continue IV Zosyn at this time with plan to dc on 01/13 per ID 01/11: continue Zosyn 3.375gm IVPB Q6H (day 5) will discontinue on 01/13/1601/09: Will speak with Dr. Armstrong regarding length of IV antibiotic therapy. In the meantime, continue Zosyn 3.375gm IVPB Q6H. Continue monitoring CBC and for fevers. 01/07: Continue Zosyn 3.375gm IVPB Q6H. Monitor for fevers, Monitor CBC 01/06: urine culture positive for proteus mirabilis (sensitive to tobramycin, zosyn, amikacin, gentamicin). baker catheter to be re-inserted. Switch to Zosyn 3.375gm IVPB Q6H per Dr. Armstrong. 01/05: f/u urine culture sensitivities. Continue Primaxin 500mg IVPB Q8H as per Dr. Armstrong. 01/04: Urine culture + for gram negative rods. spoke with Dr. Armstrong. switched rocephin to primaxin 500mg IVPB Q8H [place] catheter ordered to be used with skin prep to keep it on 01/03: urinalysis had 4+ protein, positive nitrates, 3+ leukocyte esterase. Rocephin 1gm IVPB daily started. Continue [place] catheter. Ditropan 5mg PEG TID for leakage around catheter Urology consult - Dr. Oropeza - help appreciated ID on board - Dr. Armstrong - help appreciated (4) CAD (coronary artery disease) Assessment & Plan: No new events. Cardiac stents on 06/13/15. Continue Lisinopril 5mg PO daily Continue Plavix 75mg PO daily Continue ASA 325mg PO daily-currently held due to recent trach bleeding (5) Seizures Assessment & Plan: 02/10: No active seizure, continue dilantin 100mg tid through peg tube. 02/09: no active seizure, continue dilantin 100mg tid through peg tube. no active seizures, continue dilantin 100mg tid through peg tube, continue to monitor patient closely. No active seizure, continue dilantin 100mg through peg tube TID Continue dilantin 100mg PEG TID SZ percaution, Fall precaution (6) Bed sore Assessment & Plan: 02/19: Bed sore unchanged, continue medihoney and dressing. 02/17: Bed sore stage 2 atleast sacral decubitis area, have used medihoney and dressing. Continue to monitor closely. 02/11: Healed pressure ulcer, skin excoration noted, will continue move patient q2h. 02/10: No change, will continue to monitor twice a week. 02/07: continue to monitor twice a week. no changes 02/06: No Change, continue to check every 2 weeks. 02/04: Evaluated this morning, healed sacral decubitus wound present, continue move patient q2h. 02/03: Continue move patient q2h, continue check patient twice a week. 01/30--> Healed Sacral decubitus wound 01/27: Ecchymosis like bruising around his left hip and buttock area, will continue to monitor closely, monitor cbc closely as well. 01/27: No change, resolved, continue to monitor twice a week. 01/26: No change, continue to monitor twice a week. 01/25: No change, will continue to check twice a week. 01/24: No change, monitor twice a week 01/22: Monitor twice a week. 01/21: Resolved, continue to monitor patient twice a week. : sacral ulcer to be evaluated minimum twice per week. 01/19: Sacral ulcer healed, Stage 0 01/15: Sacral ulcer improving considerably, Stage I (one) ulcer observed, non- open continue wound care, sensicare, and medihoney sacral ulcer. Stage II 0.5cm x 1.5cm Continue wound care, sensicare and medihoney. Continue repositioning of patient q2H. dolphin mattress. Heel air boots. (7) Prophylactic measure Assessment & Plan: Lovenox 40 SC daily Pepcid 20 mg PO BID [facility] <Donnell Ying - Last Filed: 02/20/16 15:56> Objective - Vital Signs/Intake and Output Vital Signs (last 24 hours): Temp Pulse Resp BP Pulse Ox 98.4 F 85 20 123/79 97 02/20/16 07:54 02/20/16 07:54 02/20/16 07:54 02/20/16 07:54 02/20/16 07:54 Intake and Output: 02/20/16 02/20/16 06:59 18:59 Intake Total 1600 Output Total 900 400 Balance 700 -400 - Medications Medications: Current Medications Aspirin (Aspirin) 325 mg PO DAILY [facility] Last Admin: 11/23/15 09:42 Dose: 325 mg Clopidogrel Bisulfate (Plavix) 75 mg PO DAILY [facility] Last Admin: 02/20/16 11:00 Dose: 75 mg Enoxaparin Sodium (Lovenox) 40 mg SC DAILY [facility] Last Admin: 02/20/16 11:00 Dose: 40 mg Lisinopril (Zestril) 5 mg PO DAILY [facility] Last Admin: 02/20/16 11:00 Dose: 5 mg Nystatin (Nystatin Oral Susp) 5 ml PO QID [facility] Last Admin: 02/20/16 13:55 Dose: 5 ml Oxybutynin Chloride (Ditropan Tab) 5 mg PO TID [facility] Last Admin: 02/20/16 13:55 Dose: 5 mg Phenytoin (Dilantin) 100 mg PEG TID [facility] Last Admin: 02/20/16 13:55 Dose: 100 mg Polyethylene Glycol (Miralax) 17 gm PEG BID [facility] Last Admin: 02/14/16 10:48 Dose: Not Given - Labs Labs: 02/20/16 08:57 02/20/16 08:57 PT 10.6 SECONDS (9.7-12.2) 11/24/15 14:10 INR 1.0 11/24/15 14:10 APTT 25 SECONDS (21-34) 11/24/15 14:10 Attending/Attestation - Attestation I have personally seen and examined this patient.: Yes I have fully participated in the care of the patient.: Yes I have reviewed all pertinent clinical information, including history, physical exam and plan: Yes Notes (Text): 02/20/16 15:53 Patient seen and examined at bedside with the resident Continue current management Turn and position q 2 hours Local wound care for DU. Discussed with nursing staff
[2016-02-20] MEDS: Nystatin 100,000 Units/ml Oral Susp 5 ml UD PO SCH ×4 (11:00→22:00)
[2016-02-20] MEDS: Enoxaparin 40 mg Syringe SC SCH (11:00)
[2016-02-20] MEDS: Phenytoin 100 mg/4 ml Oral Susp UD PEG SCH ×3 (11:00→17:45)
[2016-02-21] MEDS: Nystatin 100,000 Units/ml Oral Susp 5 ml UD PO SCH ×4 (11:03→22:03)
[2016-02-21] MEDS: POLYETHYLENE GLYCOL 3350 17 GM/Dose PACKET PEG SCH (11:03)
[2016-02-21] MEDS: Phenytoin 100 mg/4 ml Oral Susp UD PEG SCH ×3 (11:04→17:48)
[2016-02-21] MEDS: Enoxaparin 40 mg Syringe SC SCH (11:04)
--- NOTE | 2016-02-21 12:37 | CP.PCM.PN ---
<Joel Lin H - Last Filed: 02/21/16 16:02> Subjective - Date & Time of Evaluation Date of Evaluation: 02/21/16 Time of Evaluation: 09:30 - Subjective Subjective: Patient seen in room. Unable to obtain history from patient due to acuity of condition. No acute changes overnight per nursing staff. Objective - Vital Signs/Intake and Output Vital Signs (last 24 hours): Temp Pulse Resp BP Pulse Ox 98.8 F 80 20 125/79 99 02/20/16 23:17 02/20/16 23:17 02/20/16 23:17 02/20/16 23:17 02/20/16 23:17 Intake and Output: 02/21/16 02/21/16 06:59 18:59 Intake Total 1530 Output Total 800 Balance 730 - Medications Medications: Current Medications Aspirin (Aspirin) 325 mg PO DAILY [facility] Last Admin: 11/23/15 09:42 Dose: 325 mg Clopidogrel Bisulfate (Plavix) 75 mg PO DAILY [facility] Last Admin: 02/21/16 11:03 Dose: 75 mg Enoxaparin Sodium (Lovenox) 40 mg SC DAILY [facility] Last Admin: 02/21/16 11:04 Dose: 40 mg Lisinopril (Zestril) 5 mg PO DAILY [facility] Last Admin: 02/21/16 11:03 Dose: 5 mg Nystatin (Nystatin Oral Susp) 5 ml PO QID [facility] Last Admin: 02/21/16 11:03 Dose: 5 ml Oxybutynin Chloride (Ditropan Tab) 5 mg PO TID [facility] Last Admin: 02/21/16 11:03 Dose: 5 mg Phenytoin (Dilantin) 100 mg PEG TID [facility] Last Admin: 02/21/16 11:04 Dose: 100 mg Polyethylene Glycol (Miralax) 17 gm PEG BID [facility] Last Admin: 02/21/16 11:03 Dose: Not Given - Labs Labs: 02/20/16 08:57 02/20/16 08:57 PT 10.6 SECONDS (9.7-12.2) 11/24/15 14:10 INR 1.0 11/24/15 14:10 APTT 25 SECONDS (21-34) 11/24/15 14:10 - Constitutional Appears: Chronically Ill - Head Exam Head Exam: NORMAL INSPECTION - Eye Exam Eye Exam: Normal appearance, PERRL Pupil Exam: NORMAL ACCOMODATION - ENT Exam ENT Exam: Normal Exam - Respiratory Exam Respiratory Exam: Clear to Ausculation Bilateral. absent: Rales, Rhonchi, Wheezes - Cardiovascular Exam Cardiovascular Exam: REGULAR RHYTHM, RRR, +S1, +S2. absent: Gallop, Rubs - Extremities Exam Extremities Exam: Normal Inspection Assessment and Plan - Assessment and Plan (Free Text) Assessment: 1) Anoxic encephalopathy Assessment & Plan: 02/20: No acute changes per nursing staff, 02/19: No acute changes per nursing staff, patient still on oxygen, NOT VENTILATOR SUPPORT!! 02/18: No acute changes in mental status, tolerating trach collar 02/17: No acute changes in mental status, tolerating trach collar. 02/16: Tolerating trach collar, no acute changes overnight 02/13: Patient seen in room, tolerating trach collar, no acute mental changes. 02/12: CXR today read as: Linear atelectasis at the bases. Cardiomegaly, CXR ordered because the patient's breath sounds were not clear, he is tolerating trach ventilator support, no change in mental status. 02/11: No changes in mental status, continue supportive care. 02/10: No mental status change, patient in bed, tolerating trach collar. 02/09: No changes overnight, peg tube in place operational, trach collar in place. 02/08: No changes, peg tube in place and operational, trach collar in place as well, no bloody discharge noted, 02/07: no acute changes, peg tube in place it is operational. 02/06: No new events, patient seen with family in room, recommend to family to cut families finger nails, keep trach collar in place, patient tolerating peg feeding. 02/05: No new events, will continue Trach collar in place, peg feeding. 02/04: No new events, continue supportive care. 02/03: New new events, continue supportive care 01/31: No new events, tolerating peg tube feeding, continue supportive care. 01/30--> no new events, non verbal, tolerating Peg tube feeding, supportive management 01/29: no change, peg and trach in place 01/28: No acute changes in mental status, 01/27: No acute changes, patient not in respiratory distress. 01/26: No acute changes, peg tube in place, operational, running still at 50 cc/ hr at night with a bolus feed during the day 01/25: No acute changes, peg tube in place, operational, running still at 50 cc/ hr at night with a bolus feed during the day. 3: no acute changes, pet tube in place it is operational. 01/23: No acute changes in mental status. 3: NO acute changes in mental satus, peg tube in place and operational, thick white secretion from trach tube. 3: No acute change in mental status, peg tube operational no signs of blockage or infection(bolus during day and 50cc/hr at night. No acute change in mental status. PEG tube operational, tube feedings running at 50cc/hr at night and bolus feeds during the day 12/28: PEG tube placed at bedside by Dr. Chan. Abdominal X-ray showed PEG tube in position with contrast entering appropriately. PEG tube approved for use. GCS 8 [id number] patient with trach in place. Pending placement training family in how to take care of patient (2) Respiratory failure Assessment & Plan: 02/20: Trach collar in place, thick yellow secretions. 02/18: Tolerating trach collar, thick secretions noted. 02/16: Tolerating trach, continue ventilator support. 02/13: Trach collar in place. 02/12: CXR today read as: Linear atelectasis at the bases. Cardiomegaly, CXR ordered because the patient's breath sounds were not clear. 02/11: Patient tolerating trach collar, clear mucus discharge, no sign of infection 02/10: No respiratory distress, trach collar in place, clear mucus discharge, no sign of infection. 02/09: Trach collar in place, continue free water flushes, no bloody discharge 02/08, Trach collar in place, continue free water flushes 02/07:Trach collar in place, no respiratory distress, continue free water flushes 02/06: Trach in place, continue ventilator support 02/04: Trach collar in place, Respiratory did some suction. 02/03: Tolerating trach collar, continue free water fluesh 300 cc q8h. 01/31: Trach Collar in place, continue free water flushes 300 cc q8h. 01/30--> tolerating on Trach Collar, 01/29: trach in place, no resp distress, 01/28: Trach collar in place, no respiratory distress, continue free water flushes 01/27: No respiratory distress, white secretions noted, continue free water flushes at 300 cc q8h. 01/26: Trach collar in place, white secretions still noted, continue free water flushes at 300 cc/hr. 01/25: Trach collar in place, white secretions still noted, continue free water flushes at 300 cc/hr. 01/24: No acute changes, tranch collar in place. Still using free water flushes at 300cc q6h, white secretions still noted. 01/23: Trach collar in place with same oxygen level of 6L, white secretions noted. 01/22: No acute changes, trach collar in place at same level of 6L oxygen, thick white secretions noted. 01/21: No interval change, trach collar in place 6L O2 still, no secretions. no interval change. trach collar at 6L O2. No secretions noted this morning. Trach collar in place. Sputum culture 12/06 + pseudomonas: probably colonization. afebrile. normal white count. CXR without infiltrates. No antibiotics for now per Dr. Armstrong tracheostomy with tube change by Dr. Chan on 11/27/15 CXR 12/08--> Tracheostomy tube appears deviated to the left which may be related to patient positioning. Clinical correlation as this does not project over the midline trachea. Bibasilar atelectasis. Mild stable nodularity at the right lung base. (see full report) Cipro started on 11/30 was stopped on 12/08. clean and dry site saturating well on 7L O2 via trach collar No blood tinged secretions noted Bronchial washing grew Pseudomonas ID consult - Dr. Armstrong - help appreciated Working on getting portable suctioning for family to practice (3) Urinary tract infection Assessment & Plan: 02/20: Baker in place, no sign of leakage, urine is clear. 02/17: Baker in place, no sign of leakage, urine is clear. 02/15: Baker in place, urine clear. 02/13: Baker in place, no sign of leak, urine is clear. 02/12: Baker in place, no sign of leak, urine is clear. 02/11: Baker in place, no sign of leak, urine is clear 02/10: Baker in place, no sign of leak, urine is clear. 02/09: Baker in place in urine clear 02/08: Baker in place, urine clear 02/07: baker changed this AM - urine clear 02/06: plan to change baker catheter tomorrow, urine clear. 02/04: Baker in place, urine clear. 02/03: Baker in place, urine clear, will change baker every 3 weeks. 01/31: Baker in place, clear color urine, no bleeding, continue to monitor. 01/30--> Baker;s in place, clear color urine, no bleeding, 01/29: baker in place 01/27: Resolved, Baker in place, urine is clear. 01/26: Resolved, Baker in place, 01/25: Resolved, Baker in place, urine is clear color this morning. 01/24: Resolved, Baker in place, urine is a more dark yellow color. 01/23: Resolved, Baker in place, urine is clear color. 01/22: Resolved no acute changes. 01/21: Resolved no changes afebrile, continue monitoring for fever 01/18: afebrile overnight. WBC 9.5 yesterday. CBC to be done twice weekly, unless increased frequency is clinically indicated 01/14: Off IV Zosyn, continue baker catheter. f/u CBC and monitor VS 01/13: Stop IV Zosyn today. 01/12: Continue IV Zosyn at this time with plan to dc on 01/13 per ID 01/11: continue Zosyn 3.375gm IVPB Q6H (day 5) will discontinue on 01/13/1601/09: Will speak with Dr. Armstrong regarding length of IV antibiotic therapy. In the meantime, continue Zosyn 3.375gm IVPB Q6H. Continue monitoring CBC and for fevers. 01/07: Continue Zosyn 3.375gm IVPB Q6H. Monitor for fevers, Monitor CBC 01/06: urine culture positive for proteus mirabilis (sensitive to tobramycin, zosyn, amikacin, gentamicin). baker catheter to be re-inserted. Switch to Zosyn 3.375gm IVPB Q6H per Dr. Armstrong. 01/05: f/u urine culture sensitivities. Continue Primaxin 500mg IVPB Q8H as per Dr. Armstrong. 01/04: Urine culture + for gram negative rods. spoke with Dr. Armstrong. switched rocephin to primaxin 500mg IVPB Q8H [place] catheter ordered to be used with skin prep to keep it on 01/03: urinalysis had 4+ protein, positive nitrates, 3+ leukocyte esterase. Rocephin 1gm IVPB daily started. Continue [place] catheter. Ditropan 5mg PEG TID for leakage around catheter Urology consult - Dr. Oropeza - help appreciated ID on board - Dr. Armstrong - help appreciated (4) CAD (coronary artery disease) Assessment & Plan: No new events. Cardiac stents on 06/13/15. Continue Lisinopril 5mg PO daily Continue Plavix 75mg PO daily Continue ASA 325mg PO daily-currently held due to recent trach bleeding (5) Seizures Assessment & Plan: 02/10: No active seizure, continue dilantin 100mg tid through peg tube. 02/09: no active seizure, continue dilantin 100mg tid through peg tube. no active seizures, continue dilantin 100mg tid through peg tube, continue to monitor patient closely. No active seizure, continue dilantin 100mg through peg tube TID Continue dilantin 100mg PEG TID SZ percaution, Fall precaution (6) Bed sore Assessment & Plan: 02/20: Stage 2 sacral decubitis ulcer forming on left side, continue current management. 02/19: Bed sore unchanged, continue medihoney and dressing. 02/17: Bed sore stage 2 atleast sacral decubitis area, have used medihoney and dressing. Continue to monitor closely. 02/11: Healed pressure ulcer, skin excoration noted, will continue move patient q2h. 02/10: No change, will continue to monitor twice a week. 02/07: continue to monitor twice a week. no changes 02/06: No Change, continue to check every 2 weeks. 02/04: Evaluated this morning, healed sacral decubitus wound present, continue move patient q2h. 02/03: Continue move patient q2h, continue check patient twice a week. 01/30--> Healed Sacral decubitus wound 01/27: Ecchymosis like bruising around his left hip and buttock area, will continue to monitor closely, monitor cbc closely as well. 01/27: No change, resolved, continue to monitor twice a week. 01/26: No change, continue to monitor twice a week. 01/25: No change, will continue to check twice a week. 01/24: No change, monitor twice a week 01/22: Monitor twice a week. 01/21: Resolved, continue to monitor patient twice a week. : sacral ulcer to be evaluated minimum twice per week. 01/19: Sacral ulcer healed, Stage 0 01/15: Sacral ulcer improving considerably, Stage I (one) ulcer observed, non- open continue wound care, sensicare, and medihoney sacral ulcer. Stage II 0.5cm x 1.5cm Continue wound care, sensicare and medihoney. Continue repositioning of patient q2H. dolphin mattress. Heel air boots. (7) Prophylactic measure Assessment & Plan: Lovenox 40 SC daily Pepcid 20 mg PO BID [facility] <Donnell Ying - Last Filed: 02/21/16 16:56> Objective - Vital Signs/Intake and Output Vital Signs (last 24 hours): Temp Pulse Resp BP Pulse Ox 98.7 F 82 20 116/77 99 02/21/16 15:58 02/21/16 15:58 02/21/16 15:58 02/21/16 15:58 02/21/16 15:58 Intake and Output: 02/21/16 02/21/16 06:59 18:59 Intake Total 1530 830 Output Total 800 200 Balance 730 630 - Medications Medications: Current Medications Aspirin (Aspirin) 325 mg PO DAILY [facility] Last Admin: 11/23/15 09:42 Dose: 325 mg Clopidogrel Bisulfate (Plavix) 75 mg PO DAILY [facility] Last Admin: 02/21/16 11:03 Dose: 75 mg Enoxaparin Sodium (Lovenox) 40 mg SC DAILY [facility] Last Admin: 02/21/16 11:04 Dose: 40 mg Lisinopril (Zestril) 5 mg PO DAILY [facility] Last Admin: 02/21/16 11:03 Dose: 5 mg Nystatin (Nystatin Oral Susp) 5 ml PO QID [facility] Last Admin: 02/21/16 14:15 Dose: 5 ml Oxybutynin Chloride (Ditropan Tab) 5 mg PO TID [facility] Last Admin: 02/21/16 14:16 Dose: 5 mg Phenytoin (Dilantin) 100 mg PEG TID [facility] Last Admin: 02/21/16 14:15 Dose: 100 mg Polyethylene Glycol (Miralax) 17 gm PEG BID [facility] Last Admin: 02/21/16 11:03 Dose: Not Given - Labs Labs: 02/20/16 08:57 02/20/16 08:57 PT 10.6 SECONDS (9.7-12.2) 11/24/15 14:10 INR 1.0 11/24/15 14:10 APTT 25 SECONDS (21-34) 11/24/15 14:10 Attending/Attestation - Attestation I have personally seen and examined this patient.: Yes I have fully participated in the care of the patient.: Yes I have reviewed all pertinent clinical information, including history, physical exam and plan: Yes Notes (Text): 02/21/16 16:55 Patient seen and examined at bedside with the resident. There is no change in clinical condition. Continue current management. Turn and position every 2 hours. Continue local wound care for decubitus ulcer.
[2016-02-22] MEDS: Phenytoin 100 mg/4 ml Oral Susp UD PEG SCH ×3 (10:03→18:05)
[2016-02-22] MEDS: Nystatin 100,000 Units/ml Oral Susp 5 ml UD PO SCH ×4 (10:03→22:19)
[2016-02-22] MEDS: Enoxaparin 40 mg Syringe SC SCH (10:03)
--- NOTE | 2016-02-22 12:24 | CP.PCM.PN ---
<Nely Pate - Last Filed: 02/22/16 12:21> Subjective - Date & Time of Evaluation Date of Evaluation: 02/22/16 Time of Evaluation: 10:00 - Subjective Subjective: Medicine Progress Note Patient seen and examined. No acute events overnight per RN. Patient's present at bedside. Patient frequently being repositioned. Sacral ulcer assessed during rounds. ROS could not be obtained. Objective - Vital Signs/Intake and Output Vital Signs (last 24 hours): Temp Pulse Resp BP Pulse Ox 99.7 F H 83 18 131/81 20 L 02/22/16 08:04 02/22/16 08:04 02/22/16 08:04 02/22/16 08:04 02/22/16 08:04 Intake and Output: 02/22/16 02/22/16 06:59 18:59 Intake Total 1330 Output Total 1300 Balance 30 - Medications Medications: Current Medications Aspirin (Aspirin) 325 mg PO DAILY [facility] Last Admin: 11/23/15 09:42 Dose: 325 mg Clopidogrel Bisulfate (Plavix) 75 mg PO DAILY [facility] Last Admin: 02/22/16 10:03 Dose: 75 mg Enoxaparin Sodium (Lovenox) 40 mg SC DAILY [facility] Last Admin: 02/22/16 10:03 Dose: 40 mg Lisinopril (Zestril) 5 mg PO DAILY [facility] Last Admin: 02/22/16 10:03 Dose: 5 mg Nystatin (Nystatin Oral Susp) 5 ml PO QID [facility] Last Admin: 02/22/16 10:03 Dose: 5 ml Oxybutynin Chloride (Ditropan Tab) 5 mg PO TID [facility] Last Admin: 02/22/16 10:03 Dose: 5 mg Phenytoin (Dilantin) 100 mg PEG TID [facility] Last Admin: 02/22/16 10:03 Dose: 100 mg Polyethylene Glycol (Miralax) 17 gm PEG BID [facility] Last Admin: 02/21/16 11:03 Dose: Not Given - Labs Labs: 02/20/16 08:57 02/20/16 08:57 PT 10.6 SECONDS (9.7-12.2) 11/24/15 14:10 INR 1.0 11/24/15 14:10 APTT 25 SECONDS (21-34) 11/24/15 14:10 - Constitutional Appears: Non-toxic, No Acute Distress - Head Exam Head Exam: ATRAUMATIC, NORMOCEPHALIC - Eye Exam Eye Exam: EOMI, Normal appearance - ENT Exam ENT Exam: Mucous Membranes Dry - Neck Exam Additional comments: trach - Respiratory Exam Respiratory Exam: Clear to Ausculation Bilateral, NORMAL BREATHING PATTERN. absent: Rhonchi, Wheezes, Respiratory Distress Additional comments: trach - Cardiovascular Exam Cardiovascular Exam: REGULAR RHYTHM, +S1, +S2 - GI/Abdominal Exam GI & Abdominal Exam: Soft, Normal Bowel Sounds. absent: Guarding - Extremities Exam Extremities Exam: Normal Inspection. absent: Pedal Edema - Back Exam Additional comments: stage 2 sacral ulcer, healed - Neurological Exam Neurological Exam: Awake. absent: Alert - Psychiatric Exam Psychiatric exam: Normal Affect, Normal Mood - Skin Skin Exam: Dry, Warm Assessment and Plan - Assessment and Plan (Free Text) Assessment: (1) Anoxic encephalopathy No acute change in mental status PEG tube operational, tube feedings 12/28: PEG tube placed at bedside by Dr. Chan. Pending placement (2) Respiratory Failure Trach collar in place, thick yellow secretions. 02/12 CXR: Linear atelectasis at the bases. Cardiomegaly. ID consult - Dr. Armstrong - help appreciated Sputum culture 12/06 + pseudomonas: probably colonization. No antibiotics per Dr. Armstrong tracheostomy with tube change by Dr. Chan on 11/27/15 (3) UTI Yoo in place, no sign of leakage. Afebrile, no WBC count. (4) CAD (coronary artery disease) Cardiac stents on 06/13/15. Continue Lisinopril 5mg PO daily Continue Plavix 75mg PO daily Continue ASA 325mg PO daily (5) Seizures Continue dilantin 100mg PEG TID SZ percaution, Fall precaution (6) Bed sore continue wound care, sensicare, and medihoney sacral ulcer. Stage II 0.5cm x 1.5cm Continue wound care, sensicare and medihoney. Continue repositioning of patient q2H. dolphin mattress. Heel air boots. (7) Prophylactic measure Lovenox 40 SC daily Pepcid 20 mg PO BID [facility] <StepanDonnell M - Last Filed: 02/22/16 13:52> Objective - Vital Signs/Intake and Output Vital Signs (last 24 hours): Temp Pulse Resp BP Pulse Ox 99.7 F H 83 18 131/81 20 L 02/22/16 08:04 02/22/16 08:04 02/22/16 08:04 02/22/16 08:04 02/22/16 08:04 Intake and Output: 02/22/16 02/22/16 06:59 18:59 Intake Total 1330 Output Total 1300 Balance 30 - Medications Medications: Current Medications Aspirin (Aspirin) 325 mg PO DAILY [facility] Last Admin: 11/23/15 09:42 Dose: 325 mg Clopidogrel Bisulfate (Plavix) 75 mg PO DAILY [facility] Last Admin: 02/22/16 10:03 Dose: 75 mg Enoxaparin Sodium (Lovenox) 40 mg SC DAILY [facility] Last Admin: 02/22/16 10:03 Dose: 40 mg Lisinopril (Zestril) 5 mg PO DAILY [facility] Last Admin: 02/22/16 10:03 Dose: 5 mg Nystatin (Nystatin Oral Susp) 5 ml PO QID [facility] Last Admin: 02/22/16 10:03 Dose: 5 ml Oxybutynin Chloride (Ditropan Tab) 5 mg PO TID [facility] Last Admin: 02/22/16 10:03 Dose: 5 mg Phenytoin (Dilantin) 100 mg PEG TID [facility] Last Admin: 02/22/16 10:03 Dose: 100 mg Polyethylene Glycol (Miralax) 17 gm PEG BID [facility] Last Admin: 02/21/16 11:03 Dose: Not Given - Labs Labs: 02/20/16 08:57 02/20/16 08:57 PT 10.6 SECONDS (9.7-12.2) 11/24/15 14:10 INR 1.0 11/24/15 14:10 APTT 25 SECONDS (21-34) 11/24/15 14:10 Attending/Attestation - Attestation I have personally seen and examined this patient.: Yes I have fully participated in the care of the patient.: Yes I have reviewed all pertinent clinical information, including history, physical exam and plan: Yes Notes (Text): 02/22/16 13:51 Patient seen and examined at bedside with the resident today. There is no change in clinical condition. Patient underwent decubitus ulcer examined. Decubitus ulcer is healing very well. Continue local wound care. Minimal break of skin noted in the sacral region. Completely healed ulcer on the buttock. We will continue to turn and position every 2 hours. Continue management of tracheostomy and PEG tube. Discussed with the patient's family and the nursing staff.
--- NOTE | 2016-02-23 01:25 | CP.PCM.PN ---
<Sandra Mercedes - Last Filed: 02/23/16 06:17> Subjective - Date & Time of Evaluation Date of Evaluation: 02/22/15 Time of Evaluation: 06:00 - Subjective Subjective: Medicine Note Pt seen and examined. No acute events as per nursing. No change in mental status. Wounds clean and dry. Unable to obtain ROS. Objective - Vital Signs/Intake and Output Vital Signs (last 24 hours): Temp Pulse Resp BP Pulse Ox 98.6 F 89 20 107/71 99 02/22/16 23:43 02/22/16 23:43 02/22/16 23:43 02/22/16 23:43 02/22/16 23:43 Intake and Output: 02/22/16 02/23/16 18:59 06:59 Intake Total 500 Output Total 550 Balance -50 - Medications Medications: Current Medications Aspirin (Aspirin) 325 mg PO DAILY [facility] Last Admin: 11/23/15 09:42 Dose: 325 mg Clopidogrel Bisulfate (Plavix) 75 mg PO DAILY [facility] Last Admin: 02/22/16 10:03 Dose: 75 mg Enoxaparin Sodium (Lovenox) 40 mg SC DAILY [facility] Last Admin: 02/22/16 10:03 Dose: 40 mg Lisinopril (Zestril) 5 mg PO DAILY [facility] Last Admin: 02/22/16 10:03 Dose: 5 mg Nystatin (Nystatin Oral Susp) 5 ml PO QID [facility] Last Admin: 02/22/16 22:19 Dose: 5 ml Oxybutynin Chloride (Ditropan Tab) 5 mg PO TID [facility] Last Admin: 02/22/16 18:07 Dose: 5 mg Phenytoin (Dilantin) 100 mg PEG TID [facility] Last Admin: 02/22/16 18:05 Dose: 100 mg Polyethylene Glycol (Miralax) 17 gm PEG BID [facility] Last Admin: 02/21/16 11:03 Dose: Not Given - Labs Labs: 02/20/16 08:57 02/20/16 08:57 PT 10.6 SECONDS (9.7-12.2) 11/24/15 14:10 INR 1.0 11/24/15 14:10 APTT 25 SECONDS (21-34) 11/24/15 14:10 - Constitutional Appears: Chronically Ill - Head Exam Head Exam: NORMAL INSPECTION - Eye Exam Eye Exam: EOMI, Normal appearance - ENT Exam ENT Exam: Mucous Membranes Dry Additional comments: trach - Respiratory Exam Respiratory Exam: Clear to Ausculation Bilateral, NORMAL BREATHING PATTERN - Cardiovascular Exam Cardiovascular Exam: REGULAR RHYTHM, +S1, +S2 - GI/Abdominal Exam GI & Abdominal Exam: Soft, Normal Bowel Sounds - Extremities Exam Extremities Exam: Normal Inspection - Back Exam Additional comments: stage 2 sacral ulcer, healed - Neurological Exam Neurological Exam: Altered - Skin Skin Exam: Dry, Normal Color Assessment and Plan - Assessment and Plan (Free Text) Assessment: (1) Anoxic encephalopathy No acute events No acute change in mental status PEG tube operational, tube feedings 12/28: PEG tube placed at bedside by Dr. Chan. Pending placement (2) Respiratory Failure Trach collar in place, thick yellow secretions. 02/12 CXR: Linear atelectasis at the bases. Cardiomegaly. ID consult - Dr. Armstrong - help appreciated Sputum culture 12/06 + pseudomonas: probably colonization. No antibiotics per Dr. Armstrong tracheostomy with tube change by Dr. Chan on 11/27/15 (3) UTI Yoo in place, no sign of leakage. Afebrile, no WBC count. (4) CAD (coronary artery disease) Cardiac stents on 06/13/15. Continue Lisinopril 5mg PO daily Continue Plavix 75mg PO daily Continue ASA 325mg PO daily (5) Seizures Continue dilantin 100mg PEG TID SZ percaution, Fall precaution (6) Bed sore continue wound care, sensicare, and medihoney sacral ulcer. Stage II 0.5cm x 1.5cm Continue wound care, sensicare and medihoney. Continue repositioning of patient q2H. dolphin mattress. Heel air boots. (7) Prophylactic measure Lovenox 40 SC daily Pepcid 20 mg PO BID [facility] <StepanCarlos Akevin Romero - Last Filed: 02/23/16 16:17> Objective - Vital Signs/Intake and Output Vital Signs (last 24 hours): Temp Pulse Resp BP Pulse Ox 99.5 F 93 H 20 116/74 95 02/23/16 15:40 02/23/16 15:40 02/23/16 15:40 02/23/16 15:40 02/23/16 15:40 Intake and Output: 02/23/16 02/23/16 06:59 18:59 Intake Total 1200 800 Output Total 1050 300 Balance 150 500 - Medications Medications: Current Medications Aspirin (Aspirin) 325 mg PO DAILY [facility] Last Admin: 11/23/15 09:42 Dose: 325 mg Clopidogrel Bisulfate (Plavix) 75 mg PO DAILY [facility] Last Admin: 02/23/16 09:54 Dose: 75 mg Enoxaparin Sodium (Lovenox) 40 mg SC DAILY [facility] Last Admin: 02/23/16 09:54 Dose: 40 mg Lisinopril (Zestril) 5 mg PO DAILY [facility] Last Admin: 02/23/16 09:54 Dose: 5 mg Nystatin (Nystatin Oral Susp) 5 ml PO QID [facility] Last Admin: 02/23/16 13:53 Dose: 5 ml Oxybutynin Chloride (Ditropan Tab) 5 mg PO TID [facility] Last Admin: 02/23/16 13:53 Dose: 5 mg Phenytoin (Dilantin) 100 mg PEG TID [facility] Last Admin: 02/23/16 13:53 Dose: 100 mg Polyethylene Glycol (Miralax) 17 gm PEG BID [facility] Last Admin: 02/21/16 11:03 Dose: Not Given - Labs Labs: 02/20/16 08:57 02/20/16 08:57 PT 10.6 SECONDS (9.7-12.2) 11/24/15 14:10 INR 1.0 11/24/15 14:10 APTT 25 SECONDS (21-34) 11/24/15 14:10 Attending/Attestation - Attestation I have personally seen and examined this patient.: Yes I have fully participated in the care of the patient.: Yes I have reviewed all pertinent clinical information, including history, physical exam and plan: Yes Notes (Text): 02/23/16 16:17 Patient seen and examined at bedside with the resident. Patient is is no change in clinical condition. Continue current management. Turn and position every 2 hours.
[2016-02-23] MEDS: Phenytoin 100 mg/4 ml Oral Susp UD PEG SCH ×3 (09:53→17:27)
[2016-02-23] MEDS: Enoxaparin 40 mg Syringe SC SCH (09:54)
[2016-02-23] MEDS: Nystatin 100,000 Units/ml Oral Susp 5 ml UD PO SCH ×4 (09:54→22:20)
--- NOTE | 2016-02-24 10:03 | CP.PCM.PN ---
<RileyJoel H - Last Filed: 02/24/16 10:00> Subjective - Date & Time of Evaluation Date of Evaluation: 02/24/16 Time of Evaluation: 10:00 - Subjective Subjective: Patient seen in room. No changes in mental status. No acute changes overnight per nursing staff. Objective - Vital Signs/Intake and Output Vital Signs (last 24 hours): Temp Pulse Resp BP Pulse Ox 99 F 84 20 102/63 97 02/24/16 07:39 02/24/16 07:39 02/24/16 07:39 02/24/16 07:39 02/24/16 07:39 Intake and Output: 02/24/16 02/24/16 06:59 18:59 Intake Total 1230 Output Total 450 Balance 780 - Medications Medications: Current Medications Aspirin (Aspirin) 325 mg PO DAILY [facility] Last Admin: 11/23/15 09:42 Dose: 325 mg Clopidogrel Bisulfate (Plavix) 75 mg PO DAILY [facility] Last Admin: 02/23/16 09:54 Dose: 75 mg Enoxaparin Sodium (Lovenox) 40 mg SC DAILY [facility] Last Admin: 02/23/16 09:54 Dose: 40 mg Lisinopril (Zestril) 5 mg PO DAILY [facility] Last Admin: 02/23/16 09:54 Dose: 5 mg Nystatin (Nystatin Oral Susp) 5 ml PO QID [facility] Last Admin: 02/23/16 22:20 Dose: 5 ml Oxybutynin Chloride (Ditropan Tab) 5 mg PO TID [facility] Last Admin: 02/23/16 17:27 Dose: 5 mg Phenytoin (Dilantin) 100 mg PEG TID [facility] Last Admin: 02/23/16 17:27 Dose: 100 mg Polyethylene Glycol (Miralax) 17 gm PEG BID [facility] Last Admin: 02/21/16 11:03 Dose: Not Given - Labs Labs: 02/20/16 08:57 02/20/16 08:57 PT 10.6 SECONDS (9.7-12.2) 11/24/15 14:10 INR 1.0 11/24/15 14:10 APTT 25 SECONDS (21-34) 11/24/15 14:10 - Constitutional Appears: Chronically Ill - Head Exam Head Exam: ATRAUMATIC, NORMAL INSPECTION, NORMOCEPHALIC - Eye Exam Eye Exam: PERRL Pupil Exam: NORMAL ACCOMODATION - ENT Exam ENT Exam: Mucous Membranes Moist, Normal Exam - Neck Exam Neck Exam: Normal Inspection - Respiratory Exam Respiratory Exam: Clear to Ausculation Bilateral. absent: Rales, Rhonchi, Wheezes - Cardiovascular Exam Cardiovascular Exam: REGULAR RHYTHM, RRR, +S1, +S2. absent: Gallop, Rubs - GI/Abdominal Exam GI & Abdominal Exam: Soft. absent: Guarding, Tenderness, Normal Bowel Sounds, Rebound - Extremities Exam Extremities Exam: Normal Inspection. absent: Pedal Edema - Back Exam Back Exam: NORMAL INSPECTION - Psychiatric Exam Psychiatric exam: Normal Affect, Normal Mood - Skin Skin Exam: Diaphoretic, Normal Color, Warm Assessment and Plan - Assessment and Plan (Free Text) Assessment: 1) Anoxic encephalopathy Assessment & Plan: 02/23: No acute changes, patient tolerating trach. 02/20: No acute changes per nursing staff, 02/19: No acute changes per nursing staff, patient still on oxygen, NOT VENTILATOR SUPPORT!! 02/18: No acute changes in mental status, tolerating trach collar 02/17: No acute changes in mental status, tolerating trach collar. 02/16: Tolerating trach collar, no acute changes overnight 02/13: Patient seen in room, tolerating trach collar, no acute mental changes. 02/12: CXR today read as: Linear atelectasis at the bases. Cardiomegaly, CXR ordered because the patient's breath sounds were not clear, he is tolerating trach ventilator support, no change in mental status. 02/11: No changes in mental status, continue supportive care. 02/10: No mental status change, patient in bed, tolerating trach collar. 02/09: No changes overnight, peg tube in place operational, trach collar in place. 02/08: No changes, peg tube in place and operational, trach collar in place as well, no bloody discharge noted, 02/07: no acute changes, peg tube in place it is operational. 02/06: No new events, patient seen with family in room, recommend to family to cut families finger nails, keep trach collar in place, patient tolerating peg feeding. 02/05: No new events, will continue Trach collar in place, peg feeding. 02/04: No new events, continue supportive care. 02/03: New new events, continue supportive care 01/31: No new events, tolerating peg tube feeding, continue supportive care. 01/30--> no new events, non verbal, tolerating Peg tube feeding, supportive management 01/29: no change, peg and trach in place 01/28: No acute changes in mental status, 01/27: No acute changes, patient not in respiratory distress. 01/26: No acute changes, peg tube in place, operational, running still at 50 cc/ hr at night with a bolus feed during the day 01/25: No acute changes, peg tube in place, operational, running still at 50 cc/ hr at night with a bolus feed during the day. 01/24: no acute changes, pet tube in place it is operational. 01/23: No acute changes in mental status. 01/22: NO acute changes in mental satus, peg tube in place and operational, thick white secretion from trach tube. 01/21: No acute change in mental status, peg tube operational no signs of blockage or infection(bolus during day and 50cc/hr at night. No acute change in mental status. PEG tube operational, tube feedings running at 50cc/hr at night and bolus feeds during the day 12/28: PEG tube placed at bedside by Dr. Chan. Abdominal X-ray showed PEG tube in position with contrast entering appropriately. PEG tube approved for use. GCS 8 [id number] patient with trach in place. Pending placement training family in how to take care of patient (2) Respiratory failure Assessment & Plan: 02/23: Trach collar in place, yellow secretions noted. 02/20: Trach collar in place, thick yellow secretions. 02/18: Tolerating trach collar, thick secretions noted. 02/16: Tolerating trach, continue ventilator support. 02/13: Trach collar in place. 02/12: CXR today read as: Linear atelectasis at the bases. Cardiomegaly, CXR ordered because the patient's breath sounds were not clear. 02/11: Patient tolerating trach collar, clear mucus discharge, no sign of infection 02/10: No respiratory distress, trach collar in place, clear mucus discharge, no sign of infection. 02/09: Trach collar in place, continue free water flushes, no bloody discharge 02/08, Trach collar in place, continue free water flushes 02/07:Trach collar in place, no respiratory distress, continue free water flushes 02/06: Trach in place, continue ventilator support 02/04: Trach collar in place, Respiratory did some suction. 02/03: Tolerating trach collar, continue free water fluesh 300 cc q8h. 01/31: Trach Collar in place, continue free water flushes 300 cc q8h. 01/30--> tolerating on Trach Collar, 01/29: trach in place, no resp distress, 01/28: Trach collar in place, no respiratory distress, continue free water flushes 01/27: No respiratory distress, white secretions noted, continue free water flushes at 300 cc q8h. 01/26: Trach collar in place, white secretions still noted, continue free water flushes at 300 cc/hr. 01/25: Trach collar in place, white secretions still noted, continue free water flushes at 300 cc/hr. 01/24: No acute changes, tranch collar in place. Still using free water flushes at 300cc q6h, white secretions still noted. 01/23: Trach collar in place with same oxygen level of 6L, white secretions noted. 01/22: No acute changes, trach collar in place at same level of 6L oxygen, thick white secretions noted. 01/21: No interval change, trach collar in place 6L O2 still, no secretions. no interval change. trach collar at 6L O2. No secretions noted this morning. Trach collar in place. Sputum culture 12/06 + pseudomonas: probably colonization. afebrile. normal white count. CXR without infiltrates. No antibiotics for now per Dr. Armstrong tracheostomy with tube change by Dr. Chan on 11/27/15 CXR 12/08--> Tracheostomy tube appears deviated to the left which may be related to patient positioning. Clinical correlation as this does not project over the midline trachea. Bibasilar atelectasis. Mild stable nodularity at the right lung base. (see full report) Cipro started on 11/30 was stopped on 12/08. clean and dry site saturating well on 7L O2 via trach collar No blood tinged secretions noted Bronchial washing grew Pseudomonas ID consult - Dr. Armstrong - help appreciated Working on getting portable suctioning for family to practice (3) Urinary tract infection Assessment & Plan: 02/23: baker in place, no sign of leakage, urine is clear. 02/20: Baker in place, no sign of leakage, urine is clear. 02/17: Baker in place, no sign of leakage, urine is clear. 02/15: Baker in place, urine clear. 02/13: Baker in place, no sign of leak, urine is clear. 02/12: Baker in place, no sign of leak, urine is clear. 02/11: Baker in place, no sign of leak, urine is clear 02/10: Baker in place, no sign of leak, urine is clear. 02/09: Baker in place in urine clear 02/08: Baker in place, urine clear 02/07: baker changed this AM - urine clear 02/06: plan to change baker catheter tomorrow, urine clear. 02/04: Baker in place, urine clear. 02/03: Baker in place, urine clear, will change baker every 3 weeks. 01/31: Baker in place, clear color urine, no bleeding, continue to monitor. 01/30--> Baker;s in place, clear color urine, no bleeding, 01/29: baker in place 01/27: Resolved, Baker in place, urine is clear. 01/26: Resolved, Baker in place, 01/25: Resolved, Baker in place, urine is clear color this morning. 01/24: Resolved, Baker in place, urine is a more dark yellow color. 01/23: Resolved, Baker in place, urine is clear color. 01/22: Resolved no acute changes. 01/21: Resolved no changes afebrile, continue monitoring for fever 01/18: afebrile overnight. WBC 9.5 yesterday. CBC to be done twice weekly, unless increased frequency is clinically indicated 01/14: Off IV Zosyn, continue baker catheter. f/u CBC and monitor VS 01/13: Stop IV Zosyn today. 01/12: Continue IV Zosyn at this time with plan to dc on 01/13 per ID 01/11: continue Zosyn 3.375gm IVPB Q6H (day 5) will discontinue on 01/13/1601/09: Will speak with Dr. Armstrong regarding length of IV antibiotic therapy. In the meantime, continue Zosyn 3.375gm IVPB Q6H. Continue monitoring CBC and for fevers. 01/07: Continue Zosyn 3.375gm IVPB Q6H. Monitor for fevers, Monitor CBC 01/06: urine culture positive for proteus mirabilis (sensitive to tobramycin, zosyn, amikacin, gentamicin). baker catheter to be re-inserted. Switch to Zosyn 3.375gm IVPB Q6H per Dr. Armstrong. 01/05: f/u urine culture sensitivities. Continue Primaxin 500mg IVPB Q8H as per Dr. Armstrong. 01/04: Urine culture + for gram negative rods. spoke with Dr. Armstrong. switched rocephin to primaxin 500mg IVPB Q8H [place] catheter ordered to be used with skin prep to keep it on 01/03: urinalysis had 4+ protein, positive nitrates, 3+ leukocyte esterase. Rocephin 1gm IVPB daily started. Continue [place] catheter. Ditropan 5mg PEG TID for leakage around catheter Urology consult - Dr. Oropeza - help appreciated ID on board - Dr. Armstrong - help appreciated (4) CAD (coronary artery disease) Assessment & Plan: No new events. Cardiac stents on 06/13/15. Continue Lisinopril 5mg PO daily Continue Plavix 75mg PO daily Continue ASA 325mg PO daily-currently held due to recent trach bleeding (5) Seizures Assessment & Plan: 02/10: No active seizure, continue dilantin 100mg tid through peg tube. 02/09: no active seizure, continue dilantin 100mg tid through peg tube. no active seizures, continue dilantin 100mg tid through peg tube, continue to monitor patient closely. No active seizure, continue dilantin 100mg through peg tube TID Continue dilantin 100mg PEG TID SZ percaution, Fall precaution (6) Bed sore Assessment & Plan: 02/20: Stage 2 sacral decubitis ulcer forming on left side, continue current management. 02/19: Bed sore unchanged, continue medihoney and dressing. 02/17: Bed sore stage 2 atleast sacral decubitis area, have used medihoney and dressing. Continue to monitor closely. 02/11: Healed pressure ulcer, skin excoration noted, will continue move patient q2h. 02/10: No change, will continue to monitor twice a week. 02/07: continue to monitor twice a week. no changes 02/06: No Change, continue to check every 2 weeks. 02/04: Evaluated this morning, healed sacral decubitus wound present, continue move patient q2h. 02/03: Continue move patient q2h, continue check patient twice a week. 01/30--> Healed Sacral decubitus wound 01/27: Ecchymosis like bruising around his left hip and buttock area, will continue to monitor closely, monitor cbc closely as well. 01/27: No change, resolved, continue to monitor twice a week. 01/26: No change, continue to monitor twice a week. 01/25: No change, will continue to check twice a week. 01/24: No change, monitor twice a week 01/22: Monitor twice a week. 01/21: Resolved, continue to monitor patient twice a week. : sacral ulcer to be evaluated minimum twice per week. 01/19: Sacral ulcer healed, Stage 0 01/15: Sacral ulcer improving considerably, Stage I (one) ulcer observed, non- open continue wound care, sensicare, and medihoney sacral ulcer. Stage II 0.5cm x 1.5cm Continue wound care, sensicare and medihoney. Continue repositioning of patient q2H. dolphin mattress. Heel air boots. (7) Prophylactic measure Assessment & Plan: Lovenox 40 SC daily Pepcid 20 mg PO BID [facility] <Donnell Ying - Last Filed: 02/24/16 17:23> Objective - Vital Signs/Intake and Output Vital Signs (last 24 hours): Temp Pulse Resp BP Pulse Ox 98.2 F 78 20 102/63 100 02/24/16 15:00 02/24/16 15:00 02/24/16 15:00 02/24/16 07:39 02/24/16 15:00 Intake and Output: 02/24/16 02/24/16 06:59 18:59 Intake Total 1230 800 Output Total 450 600 Balance 780 200 - Medications Medications: Current Medications Aspirin (Aspirin) 325 mg PO DAILY [facility] Last Admin: 11/23/15 09:42 Dose: 325 mg Clopidogrel Bisulfate (Plavix) 75 mg PO DAILY [facility] Last Admin: 02/24/16 10:38 Dose: 75 mg Enoxaparin Sodium (Lovenox) 40 mg SC DAILY [facility] Last Admin: 02/24/16 10:38 Dose: 40 mg Lisinopril (Zestril) 5 mg PO DAILY [facility] Last Admin: 02/24/16 10:38 Dose: 5 mg Nystatin (Nystatin Oral Susp) 5 ml PO QID [facility] Last Admin: 02/24/16 14:27 Dose: 5 ml Oxybutynin Chloride (Ditropan Tab) 5 mg PO TID [facility] Last Admin: 02/24/16 14:27 Dose: 5 mg Phenytoin (Dilantin) 100 mg PEG TID [facility] Last Admin: 02/24/16 14:27 Dose: 100 mg Polyethylene Glycol (Miralax) 17 gm PEG BID [facility] Last Admin: 02/21/16 11:03 Dose: Not Given - Labs Labs: 02/20/16 08:57 02/20/16 08:57 PT 10.6 SECONDS (9.7-12.2) 11/24/15 14:10 INR 1.0 11/24/15 14:10 APTT 25 SECONDS (21-34) 11/24/15 14:10 Attending/Attestation - Attestation I have personally seen and examined this patient.: Yes I have fully participated in the care of the patient.: Yes I have reviewed all pertinent clinical information, including history, physical exam and plan: Yes Notes (Text): 02/24/16 17:22 Patient seen and examined at bedside Continue trach and PEG care Turn and position every 2 hours Continue local wound care for decubitus ulcer which is healing very well.
[2016-02-24] MEDS: Enoxaparin 40 mg Syringe SC SCH (10:38)
[2016-02-24] MEDS: Nystatin 100,000 Units/ml Oral Susp 5 ml UD PO SCH ×4 (10:38→22:38)
[2016-02-24] MEDS: Phenytoin 100 mg/4 ml Oral Susp UD PEG SCH ×3 (10:40→18:30)
[2016-02-25] MEDS: Phenytoin 100 mg/4 ml Oral Susp UD PEG SCH ×3 (10:23→18:56)
[2016-02-25] MEDS: Enoxaparin 40 mg Syringe SC SCH (10:23)
[2016-02-25] MEDS: Nystatin 100,000 Units/ml Oral Susp 5 ml UD PO SCH ×4 (10:23→22:27)
--- NOTE | 2016-02-25 14:20 | CP.PCM.PN ---
<Nely Pate - Last Filed: 02/25/16 14:18> Subjective - Date & Time of Evaluation Date of Evaluation: 02/25/16 Time of Evaluation: 09:00 - Subjective Subjective: Medicine Progress Note Patient seen and examined. No acute change in clinical condition. Patient has thick yellow secretions from trach. Minimal secretions on sunction. Yoo catheter in place with dark yellow colored urine, no megan hematuria. PEG tube in place and intact. ROS could not be obtained. Objective - Vital Signs/Intake and Output Vital Signs (last 24 hours): Temp Pulse Resp BP Pulse Ox 98.5 F 86 20 128/85 99 02/25/16 08:28 02/25/16 08:28 02/25/16 08:28 02/25/16 08:28 02/25/16 08:28 Intake and Output: 02/25/16 02/25/16 06:59 18:59 Intake Total 1230 Output Total 1800 Balance -570 - Medications Medications: Current Medications Aspirin (Aspirin) 325 mg PO DAILY [facility] Last Admin: 11/23/15 09:42 Dose: 325 mg Clopidogrel Bisulfate (Plavix) 75 mg PO DAILY [facility] Last Admin: 02/25/16 10:23 Dose: 75 mg Enoxaparin Sodium (Lovenox) 40 mg SC DAILY [facility] Last Admin: 02/25/16 10:23 Dose: 40 mg Lisinopril (Zestril) 5 mg PO DAILY [facility] Last Admin: 02/25/16 10:23 Dose: 5 mg Nystatin (Nystatin Oral Susp) 5 ml PO QID [facility] Last Admin: 02/25/16 10:23 Dose: 5 ml Oxybutynin Chloride (Ditropan Tab) 5 mg PO TID [facility] Last Admin: 02/25/16 10:23 Dose: 5 mg Phenytoin (Dilantin) 100 mg PEG TID [facility] Last Admin: 02/25/16 10:23 Dose: 100 mg Polyethylene Glycol (Miralax) 17 gm PEG BID [facility] Last Admin: 02/21/16 11:03 Dose: Not Given - Labs Labs: 02/20/16 08:57 02/20/16 08:57 PT 10.6 SECONDS (9.7-12.2) 11/24/15 14:10 INR 1.0 11/24/15 14:10 APTT 25 SECONDS (21-34) 11/24/15 14:10 - Additional Findings Additional findings: - Constitutional Appears: Chronically Ill - Head Exam Head Exam: NORMAL INSPECTION - Eye Exam Eye Exam: EOMI, Normal appearance - ENT Exam ENT Exam: Mucous Membranes Dry Additional comments: trach - Respiratory Exam Respiratory Exam: Clear to Ausculation Bilateral, NORMAL BREATHING PATTERN - Cardiovascular Exam Cardiovascular Exam: REGULAR RHYTHM, +S1, +S2 - GI/Abdominal Exam GI & Abdominal Exam: Soft, Normal Bowel Sounds PEG tube in place. No active drainage from insertion site. - Extremities Exam Extremities Exam: Normal Inspection - Back Exam Additional comments: stage 2 sacral ulcer, healed - Neurological Exam Neurological Exam: Altered - Skin Skin Exam: Dry, Normal Color Assessment and Plan - Assessment and Plan (Free Text) Assessment: (1) Anoxic encephalopathy No acute events No acute change in mental status PEG tube operational, tube feedings 12/28: PEG tube placed at bedside by Dr. Chan. Pending placement (2) Respiratory Failure Trach collar in place, thick yellow secretions. 02/12 CXR: Linear atelectasis at the bases. Cardiomegaly. ID consult - Dr. Armstrong - help appreciated Sputum culture 12/06 + pseudomonas: probably colonization. No antibiotics per Dr. Armstrong tracheostomy with tube change by Dr. Chan on 11/27/15 (3) UTI Yoo in place, no sign of leakage. Afebrile, no WBC count. (4) CAD (coronary artery disease) Cardiac stents on 06/13/15. Continue Lisinopril 5mg PO daily Continue Plavix 75mg PO daily Continue ASA 325mg PO daily (5) Seizures Continue dilantin 100mg PEG TID SZ percaution, Fall precaution (6) Bed sore continue wound care, sensicare, and medihoney sacral ulcer. Stage II 0.5cm x 1.5cm Continue wound care, sensicare and medihoney. Continue repositioning of patient q2H. dolphin mattress. Heel air boots. (7) Prophylactic measure Lovenox 40 SC daily Pepcid 20 mg PO BID [facility] <Nyandra,Rashel - Last Filed: 02/25/16 14:49> Objective - Vital Signs/Intake and Output Vital Signs (last 24 hours): Temp Pulse Resp BP Pulse Ox 98.5 F 86 20 128/85 99 02/25/16 08:28 02/25/16 08:28 02/25/16 08:28 02/25/16 08:28 02/25/16 08:28 Intake and Output: 02/25/16 02/25/16 06:59 18:59 Intake Total 1230 Output Total 1800 Balance -570 - Medications Medications: Current Medications Aspirin (Aspirin) 325 mg PO DAILY [facility] Last Admin: 11/23/15 09:42 Dose: 325 mg Clopidogrel Bisulfate (Plavix) 75 mg PO DAILY [facility] Last Admin: 02/25/16 10:23 Dose: 75 mg Enoxaparin Sodium (Lovenox) 40 mg SC DAILY [facility] Last Admin: 02/25/16 10:23 Dose: 40 mg Lisinopril (Zestril) 5 mg PO DAILY [facility] Last Admin: 02/25/16 10:23 Dose: 5 mg Nystatin (Nystatin Oral Susp) 5 ml PO QID [facility] Last Admin: 02/25/16 14:17 Dose: 5 ml Oxybutynin Chloride (Ditropan Tab) 5 mg PO TID [facility] Last Admin: 02/25/16 14:18 Dose: 5 mg Phenytoin (Dilantin) 100 mg PEG TID [facility] Last Admin: 02/25/16 14:17 Dose: 100 mg Polyethylene Glycol (Miralax) 17 gm PEG BID [facility] Last Admin: 02/21/16 11:03 Dose: Not Given - Labs Labs: 02/20/16 08:57 02/20/16 08:57 PT 10.6 SECONDS (9.7-12.2) 11/24/15 14:10 INR 1.0 11/24/15 14:10 APTT 25 SECONDS (21-34) 11/24/15 14:10 Attending/Attestation - Attestation I have personally seen and examined this patient.: Yes I have fully participated in the care of the patient.: Yes I have reviewed all pertinent clinical information, including history, physical exam and plan: Yes Notes (Text): 02/25/16 14:48 Patient was seen and examined during the round with the resident. pt has no new events Pt is on TC and tolerating well No fever or chills cont supportive mx, and monitor TF, Peg site and Trach site cleaned and dressed as needed.
[2016-02-26] MEDS: Phenytoin 100 mg/4 ml Oral Susp UD PEG SCH ×3 (10:01→17:58)
[2016-02-26] MEDS: Nystatin 100,000 Units/ml Oral Susp 5 ml UD PO SCH ×4 (10:30→21:45)
[2016-02-26] MEDS: Enoxaparin 40 mg Syringe SC SCH (10:30)
--- NOTE | 2016-02-26 14:36 | CP.PCM.PN ---
<RioNely - Last Filed: 02/26/16 14:32> Subjective - Date & Time of Evaluation Date of Evaluation: 02/26/16 Time of Evaluation: 10:00 - Subjective Subjective: Medicine Progress Note Patient seen and examined. No acute change in clinical condition. Patient has thick yellow secretions from trach. Yoo catheter in place with dark yellow colored urine, no megan hematuria. PEG tube in place and intact. ROS could not be obtained. Objective - Vital Signs/Intake and Output Vital Signs (last 24 hours): Temp Pulse Resp BP Pulse Ox 99.0 F 76 20 124/82 99 02/26/16 08:13 02/26/16 08:13 02/26/16 08:13 02/26/16 08:13 02/26/16 08:13 Intake and Output: 02/26/16 02/26/16 06:59 18:59 Intake Total 600 Output Total 1000 Balance -400 - Medications Medications: Current Medications Aspirin (Aspirin) 325 mg PO DAILY [facility] Last Admin: 11/23/15 09:42 Dose: 325 mg Enoxaparin Sodium (Lovenox) 40 mg SC DAILY [facility] Last Admin: 02/26/16 10:30 Dose: 40 mg Lisinopril (Zestril) 5 mg PO DAILY [facility] Last Admin: 02/26/16 10:30 Dose: 5 mg Nystatin (Nystatin Oral Susp) 5 ml PO QID [facility] Last Admin: 02/26/16 13:39 Dose: 5 ml Oxybutynin Chloride (Ditropan Tab) 5 mg PO TID [facility] Last Admin: 02/26/16 13:33 Dose: 5 mg Phenytoin (Dilantin) 100 mg PEG TID [facility] Last Admin: 02/26/16 13:33 Dose: 100 mg Polyethylene Glycol (Miralax) 17 gm PEG BID [facility] Last Admin: 02/21/16 11:03 Dose: Not Given - Labs Labs: 02/20/16 08:57 02/20/16 08:57 PT 10.6 SECONDS (9.7-12.2) 11/24/15 14:10 INR 1.0 11/24/15 14:10 APTT 25 SECONDS (21-34) 11/24/15 14:10 - Additional Findings Additional findings: - Constitutional Appears: Chronically Ill - Head Exam Head Exam: NORMAL INSPECTION - Eye Exam Eye Exam: EOMI, Normal appearance - ENT Exam ENT Exam: Mucous Membranes Dry Additional comments: trach - Respiratory Exam Respiratory Exam: Clear to Ausculation Bilateral, NORMAL BREATHING PATTERN - Cardiovascular Exam Cardiovascular Exam: REGULAR RHYTHM, +S1, +S2 - GI/Abdominal Exam GI & Abdominal Exam: Soft, Normal Bowel Sounds PEG tube in place. No active drainage from insertion site. - Extremities Exam Extremities Exam: Normal Inspection - Back Exam Additional comments: stage 2 sacral ulcer, healed - Neurological Exam Neurological Exam: Altered - Skin Skin Exam: Dry, Normal Color Assessment and Plan - Assessment and Plan (Free Text) Assessment: (1) Anoxic encephalopathy No acute events No acute change in mental status PEG tube operational, tube feedings 12/28: PEG tube placed at bedside by Dr. Chan. Pending placement (2) Respiratory Failure Trach collar in place, thick yellow secretions. 02/12 CXR: Linear atelectasis at the bases. Cardiomegaly. ID consult - Dr. Armstrong - help appreciated Sputum culture 12/06 + pseudomonas: probably colonization. No antibiotics per Dr. Armstrong tracheostomy with tube change by Dr. Chan on 11/27/15 (3) UTI Yoo in place, no sign of leakage. Afebrile, no WBC count. (4) CAD (coronary artery disease) Cardiac stents on 06/13/15. Continue Lisinopril 5mg PO daily Continue Plavix 75mg PO daily Continue ASA 325mg PO daily (5) Seizures Continue dilantin 100mg PEG TID SZ percaution, Fall precaution (6) Bed sore continue wound care, sensicare, and medihoney sacral ulcer. Stage II 0.5cm x 1.5cm Continue wound care, sensicare and medihoney. Continue repositioning of patient q2H. dolphin mattress. Heel air boots. (7) Prophylactic measure Lovenox 40 SC daily Pepcid 20 mg PO BID [facility] <Rashel Rodrigues - Last Filed: 02/26/16 19:11> Objective - Vital Signs/Intake and Output Vital Signs (last 24 hours): Temp Pulse Resp BP Pulse Ox 97.6 F 88 20 136/87 99 02/26/16 15:59 02/26/16 15:59 02/26/16 15:59 02/26/16 15:59 02/26/16 15:59 Intake and Output: 02/26/16 02/27/16 18:59 06:59 Intake Total 600 Output Total 1000 Balance -400 - Medications Medications: Current Medications Aspirin (Aspirin) 325 mg PO DAILY [facility] Last Admin: 11/23/15 09:42 Dose: 325 mg Enoxaparin Sodium (Lovenox) 40 mg SC DAILY [facility] Last Admin: 02/26/16 10:30 Dose: 40 mg Lisinopril (Zestril) 5 mg PO DAILY [facility] Last Admin: 02/26/16 10:30 Dose: 5 mg Nystatin (Nystatin Oral Susp) 5 ml PO QID [facility] Last Admin: 02/26/16 17:57 Dose: 5 ml Oxybutynin Chloride (Ditropan Tab) 5 mg PO TID [facility] Last Admin: 02/26/16 17:58 Dose: 5 mg Pantoprazole Sodium (Protonix Susp) 40 mg PO DAILY [facility] Phenytoin (Dilantin) 100 mg PEG TID [facility] Last Admin: 02/26/16 17:58 Dose: 100 mg Polyethylene Glycol (Miralax) 17 gm PEG BID [facility] Last Admin: 02/21/16 11:03 Dose: Not Given - Labs Labs: 02/20/16 08:57 02/20/16 08:57 PT 10.6 SECONDS (9.7-12.2) 11/24/15 14:10 INR 1.0 11/24/15 14:10 APTT 25 SECONDS (21-34) 11/24/15 14:10 Attending/Attestation - Attestation I have personally seen and examined this patient.: Yes I have fully participated in the care of the patient.: Yes I have reviewed all pertinent clinical information, including history, physical exam and plan: Yes Notes (Text): 02/26/16 19:01 Patient was seen and examined during the round with the resident. no new events cont supoortive mx no fever monitor closely
--- NOTE | 2016-02-27 09:16 | CP.PCM.PN ---
<Nely Pate - Last Filed: 02/27/16 09:14> Subjective - Date & Time of Evaluation Date of Evaluation: 02/27/16 Time of Evaluation: 08:00 - Subjective Subjective: Medicine Progress Note Patient seen and examined. No acute change in clinical condition. Yoo catheter in place. PEG tube in place and intact. ROS could not be obtained. Objective - Vital Signs/Intake and Output Vital Signs (last 24 hours): Temp Pulse Resp BP Pulse Ox 98.1 F 84 18 126/77 99 02/27/16 08:45 02/27/16 08:45 02/27/16 08:45 02/27/16 08:45 02/27/16 08:45 Intake and Output: 02/27/16 02/27/16 06:59 18:59 Intake Total 500 Output Total 1050 Balance -550 - Medications Medications: Current Medications Aspirin (Aspirin) 325 mg PO DAILY [facility] Last Admin: 11/23/15 09:42 Dose: 325 mg Clopidogrel Bisulfate (Plavix) 75 mg PO DAILY [facility] Stop: 05/22/16 23:59 Enoxaparin Sodium (Lovenox) 40 mg SC DAILY [facility] Last Admin: 02/26/16 10:30 Dose: 40 mg Famotidine (Pepcid) 20 mg PO BID [facility] Lisinopril (Zestril) 5 mg PO DAILY [facility] Last Admin: 02/26/16 10:30 Dose: 5 mg Nystatin (Nystatin Oral Susp) 5 ml PO QID [facility] Last Admin: 02/26/16 21:45 Dose: 5 ml Oxybutynin Chloride (Ditropan Tab) 5 mg PO TID [facility] Last Admin: 02/26/16 17:58 Dose: 5 mg Phenytoin (Dilantin) 100 mg PEG TID [facility] Last Admin: 02/26/16 17:58 Dose: 100 mg Polyethylene Glycol (Miralax) 17 gm PEG BID [facility] Last Admin: 02/21/16 11:03 Dose: Not Given - Labs Labs: 02/20/16 08:57 02/20/16 08:57 PT 10.6 SECONDS (9.7-12.2) 11/24/15 14:10 INR 1.0 11/24/15 14:10 APTT 25 SECONDS (21-34) 11/24/15 14:10 - Additional Findings Additional findings: - Constitutional Appears: Chronically Ill - Head Exam Head Exam: NORMAL INSPECTION - Eye Exam Eye Exam: EOMI, Normal appearance - ENT Exam ENT Exam: Mucous Membranes Dry Additional comments: trach - Respiratory Exam Respiratory Exam: Clear to Ausculation Bilateral, NORMAL BREATHING PATTERN - Cardiovascular Exam Cardiovascular Exam: REGULAR RHYTHM, +S1, +S2 - GI/Abdominal Exam GI & Abdominal Exam: Soft, Normal Bowel Sounds PEG tube in place. No active drainage from insertion site. - Extremities Exam Extremities Exam: Normal Inspection - Back Exam Additional comments: stage 2 sacral ulcer, healed - Neurological Exam Neurological Exam: Altered - Skin Skin Exam: Dry, Normal Color Assessment and Plan - Assessment and Plan (Free Text) Assessment: (1) Anoxic encephalopathy No acute events No acute change in mental status PEG tube operational, tube feedings 12/28: PEG tube placed at bedside by Dr. Chan. Pending placement (2) Respiratory Failure Trach collar in place, thick yellow secretions. 02/12 CXR: Linear atelectasis at the bases. Cardiomegaly. ID consult - Dr. Armstrong - help appreciated Sputum culture 12/06 + pseudomonas: probably colonization. No antibiotics per Dr. Armstrong tracheostomy with tube change by Dr. Chan on 11/27/15 (3) UTI Yoo in place, no sign of leakage. Afebrile, no WBC count. (4) CAD (coronary artery disease) Cardiac stents on 06/13/15. Continue Lisinopril 5mg PO daily Continue Plavix 75mg PO daily Continue ASA 325mg PO daily (5) Seizures Continue dilantin 100mg PEG TID SZ percaution, Fall precaution (6) Bed sore continue wound care, sensicare, and medihoney sacral ulcer. Stage II 0.5cm x 1.5cm Continue wound care, sensicare and medihoney. Continue repositioning of patient q2H. dolphin mattress. Heel air boots. (7) Prophylactic measure Lovenox 40 SC daily Pepcid 20 mg PO BID [facility] <RaviRashel - Last Filed: 02/27/16 17:32> Objective - Vital Signs/Intake and Output Vital Signs (last 24 hours): Temp Pulse Resp BP Pulse Ox 99.1 F 78 18 123/80 99 02/27/16 15:00 02/27/16 15:00 02/27/16 15:00 02/27/16 15:00 02/27/16 08:45 Intake and Output: 02/27/16 02/27/16 06:59 18:59 Intake Total 500 800 Output Total 1050 1010 Balance -550 -210 - Medications Medications: Current Medications Aspirin (Aspirin) 325 mg PO DAILY [facility] Last Admin: 02/27/16 09:20 Dose: 325 mg Clopidogrel Bisulfate (Plavix) 75 mg PO DAILY [facility] Stop: 05/22/16 23:59 Last Admin: 02/27/16 09:20 Dose: 75 mg Enoxaparin Sodium (Lovenox) 40 mg SC DAILY [facility] Last Admin: 02/27/16 09:20 Dose: 40 mg Famotidine (Pepcid) 20 mg PO BID [facility] Last Admin: 02/27/16 09:20 Dose: 20 mg Lisinopril (Zestril) 5 mg PO DAILY [facility] Last Admin: 02/27/16 09:20 Dose: 5 mg Nystatin (Nystatin Oral Susp) 5 ml PO QID [facility] Last Admin: 02/27/16 14:20 Dose: 5 ml Oxybutynin Chloride (Ditropan Tab) 5 mg PO TID [facility] Last Admin: 02/27/16 14:20 Dose: 5 mg Phenytoin (Dilantin) 100 mg PEG TID [facility] Last Admin: 02/27/16 14:20 Dose: 100 mg Polyethylene Glycol (Miralax) 17 gm PEG BID [facility] Last Admin: 02/21/16 11:03 Dose: Not Given - Labs Labs: 02/20/16 08:57 02/20/16 08:57 PT 10.6 SECONDS (9.7-12.2) 11/24/15 14:10 INR 1.0 11/24/15 14:10 APTT 25 SECONDS (21-34) 11/24/15 14:10 Attending/Attestation - Attestation I have personally seen and examined this patient.: Yes I have fully participated in the care of the patient.: Yes I have reviewed all pertinent clinical information, including history, physical exam and plan: Yes
[2016-02-27] MEDS: Nystatin 100,000 Units/ml Oral Susp 5 ml UD PO SCH ×4 (09:20→21:22)
[2016-02-27] MEDS: Phenytoin 100 mg/4 ml Oral Susp UD PEG SCH ×3 (09:20→18:05)
[2016-02-27] MEDS: Enoxaparin 40 mg Syringe SC SCH (09:20)
[2016-02-28] MEDS: Nystatin 100,000 Units/ml Oral Susp 5 ml UD PO SCH ×4 (10:42→21:38)
[2016-02-28] MEDS: Phenytoin 100 mg/4 ml Oral Susp UD PEG SCH ×3 (10:42→17:44)
[2016-02-28] MEDS: Enoxaparin 40 mg Syringe SC SCH (10:43)
--- NOTE | 2016-02-28 11:21 | CP.PCM.PN ---
<Nely Pate - Last Filed: 02/28/16 11:19> Subjective - Date & Time of Evaluation Date of Evaluation: 02/28/16 Time of Evaluation: 10:00 - Subjective Subjective: Medicine Progress Note Patient seen and examined. No acute change in clinical condition. Yoo catheter in place. PEG tube in place and intact. Patient's sacral wound was evaluated, stage 2 healed and dry. ROS could not be obtained. Objective - Vital Signs/Intake and Output Vital Signs (last 24 hours): Temp Pulse Resp BP Pulse Ox 98.3 F 92 H 20 110/76 100 02/28/16 07:47 02/28/16 07:47 02/28/16 07:47 02/28/16 07:47 02/28/16 07:47 Intake and Output: 02/28/16 02/28/16 06:59 18:59 Intake Total 1230 Output Total 1680 Balance -450 - Medications Medications: Current Medications Aspirin (Aspirin) 325 mg PO DAILY [facility] Last Admin: 02/28/16 10:41 Dose: 325 mg Clopidogrel Bisulfate (Plavix) 75 mg PO DAILY [facility] Stop: 05/22/16 23:59 Last Admin: 02/28/16 10:42 Dose: 75 mg Enoxaparin Sodium (Lovenox) 40 mg SC DAILY [facility] Last Admin: 02/28/16 10:43 Dose: 40 mg Famotidine (Pepcid) 20 mg PO BID [facility] Last Admin: 02/28/16 10:43 Dose: 20 mg Lisinopril (Zestril) 5 mg PO DAILY [facility] Last Admin: 02/28/16 10:43 Dose: 5 mg Nystatin (Nystatin Oral Susp) 5 ml PO QID [facility] Last Admin: 02/28/16 10:42 Dose: 5 ml Oxybutynin Chloride (Ditropan Tab) 5 mg PO TID [facility] Last Admin: 02/28/16 10:43 Dose: 5 mg Phenytoin (Dilantin) 100 mg PEG TID [facility] Last Admin: 02/28/16 10:42 Dose: 100 mg Polyethylene Glycol (Miralax) 17 gm PEG BID [facility] Last Admin: 02/21/16 11:03 Dose: Not Given - Labs Labs: 02/20/16 08:57 02/20/16 08:57 PT 10.6 SECONDS (9.7-12.2) 11/24/15 14:10 INR 1.0 11/24/15 14:10 APTT 25 SECONDS (21-34) 11/24/15 14:10 - Additional Findings Additional findings: - Constitutional Appears: Chronically Ill - Head Exam Head Exam: NORMAL INSPECTION - Eye Exam Eye Exam: EOMI, Normal appearance - ENT Exam ENT Exam: Mucous Membranes Dry Additional comments: trach - Respiratory Exam Respiratory Exam: Clear to Ausculation Bilateral, NORMAL BREATHING PATTERN - Cardiovascular Exam Cardiovascular Exam: REGULAR RHYTHM, +S1, +S2 - GI/Abdominal Exam GI & Abdominal Exam: Soft, Normal Bowel Sounds PEG tube in place. No active drainage from insertion site. - Extremities Exam Extremities Exam: Normal Inspection - Back Exam Additional comments: stage 2 sacral ulcer, healed - Neurological Exam Neurological Exam: Altered - Skin Skin Exam: Dry, Normal Color Assessment and Plan - Assessment and Plan (Free Text) Assessment: (1) Anoxic encephalopathy No acute events No acute change in mental status PEG tube operational, tube feedings 12/28: PEG tube placed at bedside by Dr. Chan. Pending placement (2) Respiratory Failure Trach collar in place, thick yellow secretions. 02/12 CXR: Linear atelectasis at the bases. Cardiomegaly. ID consult - Dr. Armstrong - help appreciated Sputum culture 12/06 + pseudomonas: probably colonization. No antibiotics per Dr. Armstrong tracheostomy with tube change by Dr. Chan on 11/27/15 (3) UTI Yoo in place, no sign of leakage. Afebrile, no WBC count. (4) CAD (coronary artery disease) Cardiac stents on 06/13/15. Continue Lisinopril 5mg PO daily Continue Plavix 75mg PO daily Continue ASA 325mg PO daily (5) Seizures Continue dilantin 100mg PEG TID SZ percaution, Fall precaution (6) Bed sore continue wound care, sensicare, and medihoney sacral ulcer. Stage II 0.5cm x 1.5cm. Healed. Continue repositioning of patient q2H. dolphin mattress. Heel air boots. (7) Prophylactic measure Lovenox 40 SC daily Pepcid 20 mg PO BID [facility] <Rashel Rodrigues - Last Filed: 02/28/16 17:54> Objective - Vital Signs/Intake and Output Vital Signs (last 24 hours): Temp Pulse Resp BP Pulse Ox 98.6 F 70 20 97/67 L 97 02/28/16 15:00 02/28/16 15:00 02/28/16 15:00 02/28/16 15:00 02/28/16 15:00 Intake and Output: 02/28/16 02/28/16 06:59 18:59 Intake Total 1230 830 Output Total 1680 300 Balance -450 530 - Medications Medications: Current Medications Aspirin (Aspirin) 325 mg PO DAILY [facility] Last Admin: 02/28/16 10:41 Dose: 325 mg Clopidogrel Bisulfate (Plavix) 75 mg PO DAILY [facility] Stop: 05/22/16 23:59 Last Admin: 02/28/16 10:42 Dose: 75 mg Enoxaparin Sodium (Lovenox) 40 mg SC DAILY [facility] Last Admin: 02/28/16 10:43 Dose: 40 mg Famotidine (Pepcid) 20 mg PO BID [facility] Last Admin: 02/28/16 17:45 Dose: 20 mg Lisinopril (Zestril) 5 mg PO DAILY [facility] Last Admin: 02/28/16 10:43 Dose: 5 mg Nystatin (Nystatin Oral Susp) 5 ml PO QID [facility] Last Admin: 02/28/16 17:44 Dose: 5 ml Oxybutynin Chloride (Ditropan Tab) 5 mg PO TID [facility] Last Admin: 02/28/16 17:45 Dose: 5 mg Phenytoin (Dilantin) 100 mg PEG TID [facility] Last Admin: 02/28/16 17:44 Dose: 100 mg Polyethylene Glycol (Miralax) 17 gm PEG BID [facility] Last Admin: 02/21/16 11:03 Dose: Not Given - Labs Labs: 02/20/16 08:57 02/20/16 08:57 PT 10.6 SECONDS (9.7-12.2) 11/24/15 14:10 INR 1.0 11/24/15 14:10 APTT 25 SECONDS (21-34) 11/24/15 14:10 Attending/Attestation - Attestation I have personally seen and examined this patient.: Yes I have fully participated in the care of the patient.: Yes I have reviewed all pertinent clinical information, including history, physical exam and plan: Yes
[2016-02-29] MEDS: Phenytoin 100 mg/4 ml Oral Susp UD PEG SCH ×3 (10:30→18:09)
[2016-02-29] MEDS: Enoxaparin 40 mg Syringe SC SCH (10:36)
[2016-02-29] MEDS: Nystatin 100,000 Units/ml Oral Susp 5 ml UD PO SCH (10:40)
--- NOTE | 2016-02-29 14:18 | CP.PCM.PN ---
<May Robles - Last Filed: 02/29/16 14:15> Subjective - Date & Time of Evaluation Date of Evaluation: 02/29/16 Time of Evaluation: 14:16 - Subjective Subjective: PGY2 Medicine Progress note: Dr Rodrigues Patient seen at bedside. No acute events overnight. Patient had increase secretions. afebrile. Objective - Vital Signs/Intake and Output Vital Signs (last 24 hours): Temp Pulse Resp BP Pulse Ox 98.6 F 71 18 112/69 97 02/29/16 08:10 02/29/16 11:45 02/29/16 08:10 02/29/16 08:10 02/29/16 08:10 Intake and Output: 02/29/16 02/29/16 06:59 18:59 Intake Total 1230 Output Total 1300 Balance -70 - Medications Medications: Current Medications Aspirin (Aspirin) 325 mg PO DAILY [facility] Last Admin: 02/29/16 10:39 Dose: 325 mg Clopidogrel Bisulfate (Plavix) 75 mg PO DAILY [facility] Stop: 05/22/16 23:59 Last Admin: 02/29/16 10:38 Dose: 75 mg Enoxaparin Sodium (Lovenox) 40 mg SC DAILY [facility] Last Admin: 02/29/16 10:36 Dose: 40 mg Famotidine (Pepcid) 20 mg PO BID [facility] Last Admin: 02/29/16 10:39 Dose: 20 mg Lisinopril (Zestril) 5 mg PO DAILY [facility] Last Admin: 02/29/16 10:37 Dose: 5 mg Oxybutynin Chloride (Ditropan Tab) 5 mg PO TID [facility] Last Admin: 02/29/16 10:35 Dose: 5 mg Phenytoin (Dilantin) 100 mg PEG TID [facility] Last Admin: 02/29/16 10:30 Dose: 100 mg Polyethylene Glycol (Miralax) 17 gm PEG BID [facility] Last Admin: 02/21/16 11:03 Dose: Not Given - Labs Labs: 02/20/16 08:57 02/20/16 08:57 PT 10.6 SECONDS (9.7-12.2) 11/24/15 14:10 INR 1.0 11/24/15 14:10 APTT 25 SECONDS (21-34) 11/24/15 14:10 - Constitutional Appears: Chronically Ill - Head Exam Head Exam: ATRAUMATIC, NORMAL INSPECTION, NORMOCEPHALIC - Eye Exam Eye Exam: EOMI, Normal appearance - ENT Exam ENT Exam: Mucous Membranes Moist - Neck Exam Additional comments: + trach color. No secretions around the wound. - Respiratory Exam Respiratory Exam: Clear to Ausculation Bilateral. absent: Rales, Rhonchi, Wheezes Additional comments: CTAB after suction. - Cardiovascular Exam Cardiovascular Exam: REGULAR RHYTHM - GI/Abdominal Exam GI & Abdominal Exam: Soft Additional comments: PEG tube in place. No drainage from the area. - Extremities Exam Extremities Exam: Pedal Edema (trace) Assessment and Plan - Assessment and Plan (Free Text) Assessment: (1) Anoxic encephalopathy No acute events No acute change in mental status PEG tube operational, tube feedings 12/28: PEG tube placed at bedside by Dr. Chan. Pending placement (2) Respiratory Failure Trach collar in place 02/12 CXR: Linear atelectasis at the bases. Cardiomegaly. ID consult - Dr. Armstrong - help appreciated Sputum culture 12/06 + pseudomonas: probably colonization. No antibiotics per Dr. Armstrong tracheostomy with tube change by Dr. Chan on 11/27/15 (3) UTI Yoo in place, no sign of leakage. Afebrile, no WBC count. (4) CAD (coronary artery disease) Cardiac stents on 06/13/15. Continue Lisinopril 5mg PO daily Continue Plavix 75mg PO daily Continue ASA 325mg PO daily (5) Seizures Continue dilantin 100mg PEG TID SZ percaution, Fall precaution (6) Bed sore continue wound care, sensicare, and medihoney sacral ulcer. Stage II 0.5cm x 1.5cm. Healed. Continue repositioning of patient q2H. dolphin mattress. Heel air boots. (7) Prophylactic measure Lovenox 40 SC daily Pepcid 20 mg PO BID [facility] <Rashel Rodrigues - Last Filed: 02/29/16 18:06> Objective - Vital Signs/Intake and Output Vital Signs (last 24 hours): Temp Pulse Resp BP Pulse Ox 98.3 F 78 20 117/78 99 02/29/16 16:00 02/29/16 16:00 02/29/16 16:00 02/29/16 16:00 02/29/16 16:00 Intake and Output: 02/29/16 02/29/16 06:59 18:59 Intake Total 1230 1000 Output Total 1300 900 Balance -70 100 - Medications Medications: Current Medications Aspirin (Aspirin) 325 mg PO DAILY [facility] Last Admin: 02/29/16 10:39 Dose: 325 mg Clopidogrel Bisulfate (Plavix) 75 mg PO DAILY [facility] Stop: 05/22/16 23:59 Last Admin: 02/29/16 10:38 Dose: 75 mg Enoxaparin Sodium (Lovenox) 40 mg SC DAILY [facility] Last Admin: 02/29/16 10:36 Dose: 40 mg Famotidine (Pepcid) 20 mg PO BID [facility] Last Admin: 02/29/16 10:39 Dose: 20 mg Lisinopril (Zestril) 5 mg PO DAILY [facility] Last Admin: 02/29/16 10:37 Dose: 5 mg Oxybutynin Chloride (Ditropan Tab) 5 mg PO TID [facility] Last Admin: 02/29/16 14:18 Dose: 5 mg Phenytoin (Dilantin) 100 mg PEG TID [facility] Last Admin: 02/29/16 14:18 Dose: 100 mg Polyethylene Glycol (Miralax) 17 gm PEG BID [facility] Last Admin: 02/21/16 11:03 Dose: Not Given - Labs Labs: 02/20/16 08:57 02/20/16 08:57 PT 10.6 SECONDS (9.7-12.2) 11/24/15 14:10 INR 1.0 11/24/15 14:10 APTT 25 SECONDS (21-34) 11/24/15 14:10 Attending/Attestation - Attestation I have personally seen and examined this patient.: Yes I have fully participated in the care of the patient.: Yes I have reviewed all pertinent clinical information, including history, physical exam and plan: Yes
--- NOTE | 2016-03-01 00:38 | CP.PCM.PN ---
<Nely Pate - Last Filed: 03/01/16 00:35> Subjective - Date & Time of Evaluation Date of Evaluation: 03/01/16 Time of Evaluation: 00:36 - Subjective Subjective: Patient seen and examined. Patient continues to have thick yellow secretions from trach. No acute events overnight per RN. ROS could not be obtained. Objective - Vital Signs/Intake and Output Vital Signs (last 24 hours): Temp Pulse Resp BP Pulse Ox 98.5 F 82 20 111/72 98 03/01/16 00:06 03/01/16 00:06 03/01/16 00:06 03/01/16 00:06 03/01/16 00:06 Intake and Output: 02/29/16 03/01/16 18:59 06:59 Intake Total 1000 830 Output Total 900 1000 Balance 100 -170 - Medications Medications: Current Medications Aspirin (Aspirin) 325 mg PO DAILY [facility] Last Admin: 02/29/16 10:39 Dose: 325 mg Clopidogrel Bisulfate (Plavix) 75 mg PO DAILY [facility] Stop: 05/22/16 23:59 Last Admin: 02/29/16 10:38 Dose: 75 mg Enoxaparin Sodium (Lovenox) 40 mg SC DAILY [facility] Last Admin: 02/29/16 10:36 Dose: 40 mg Famotidine (Pepcid) 20 mg PO BID [facility] Last Admin: 02/29/16 18:09 Dose: 20 mg Lisinopril (Zestril) 5 mg PO DAILY [facility] Last Admin: 02/29/16 10:37 Dose: 5 mg Oxybutynin Chloride (Ditropan Tab) 5 mg PO TID [facility] Last Admin: 02/29/16 18:09 Dose: 5 mg Phenytoin (Dilantin) 100 mg PEG TID [facility] Last Admin: 02/29/16 18:09 Dose: 100 mg Polyethylene Glycol (Miralax) 17 gm PEG BID [facility] Last Admin: 02/21/16 11:03 Dose: Not Given - Labs Labs: 02/20/16 08:57 02/20/16 08:57 PT 10.6 SECONDS (9.7-12.2) 11/24/15 14:10 INR 1.0 11/24/15 14:10 APTT 25 SECONDS (21-34) 11/24/15 14:10 - Additional Findings Additional findings: - Constitutional Appears: Chronically Ill - Head Exam Head Exam: NORMAL INSPECTION - Eye Exam Eye Exam: EOMI, Normal appearance - ENT Exam ENT Exam: Mucous Membranes Dry Additional comments: trach - Respiratory Exam Respiratory Exam: Clear to Ausculation Bilateral, NORMAL BREATHING PATTERN - Cardiovascular Exam Cardiovascular Exam: REGULAR RHYTHM, +S1, +S2 - GI/Abdominal Exam GI & Abdominal Exam: Soft, Normal Bowel Sounds PEG tube in place. No active drainage from insertion site. - Extremities Exam Extremities Exam: Normal Inspection - Back Exam Additional comments: stage 2 sacral ulcer, healed - Neurological Exam Neurological Exam: Altered - Skin Skin Exam: Dry, Normal Color Assessment and Plan - Assessment and Plan (Free Text) Assessment: (1) Anoxic encephalopathy No acute change in mental status PEG tube operational, tube feedings 12/28: PEG tube placed at bedside by Dr. Chan. Pending placement (2) Respiratory Failure Trach collar in place, thick yellow secretions. 02/12 CXR: Linear atelectasis at the bases. Cardiomegaly. ID consult - Dr. Armstrong - help appreciated Sputum culture 12/06 + pseudomonas: probably colonization. No antibiotics per Dr. Arsmtrong tracheostomy with tube change by Dr. Chan on 11/27/15 (3) UTI Yoo in place, no sign of leakage. Afebrile, no WBC count. (4) CAD (coronary artery disease) Cardiac stents on 06/13/15. Continue Lisinopril 5mg PO daily Continue Plavix 75mg PO daily Continue ASA 325mg PO daily (5) Seizures Continue dilantin 100mg PEG TID SZ percaution, Fall precaution (6) Bed sore continue wound care, sensicare, and medihoney sacral ulcer. Stage II 0.5cm x 1.5cm. Healed. Continue repositioning of patient q2H. dolphin mattress. Heel air boots. (7) Prophylactic measure Lovenox 40 SC daily Pepcid 20 mg PO BID [facility] <MadisynRashel silverman - Last Filed: 03/01/16 14:27> Objective - Vital Signs/Intake and Output Vital Signs (last 24 hours): Temp Pulse Resp BP Pulse Ox 98.7 F 88 20 109/73 98 03/01/16 08:28 03/01/16 08:28 03/01/16 08:28 03/01/16 08:28 03/01/16 08:28 Intake and Output: 03/01/16 03/01/16 06:59 18:59 Intake Total 1230 450 Output Total 1400 500 Balance -170 -50 - Medications Medications: Current Medications Aspirin (Aspirin) 325 mg PO DAILY [facility] Last Admin: 03/01/16 09:46 Dose: 325 mg Clopidogrel Bisulfate (Plavix) 75 mg PO DAILY [facility] Stop: 05/22/16 23:59 Last Admin: 03/01/16 09:47 Dose: 75 mg Enoxaparin Sodium (Lovenox) 40 mg SC DAILY [facility] Last Admin: 03/01/16 09:48 Dose: 40 mg Famotidine (Pepcid) 20 mg PO BID [facility] Last Admin: 03/01/16 09:47 Dose: 20 mg Lisinopril (Zestril) 5 mg PO DAILY [facility] Last Admin: 03/01/16 09:47 Dose: 5 mg Oxybutynin Chloride (Ditropan Tab) 5 mg PO TID [facility] Last Admin: 03/01/16 14:16 Dose: 5 mg Phenytoin (Dilantin) 100 mg PEG TID [facility] Last Admin: 03/01/16 14:15 Dose: 100 mg Polyethylene Glycol (Miralax) 17 gm PEG BID [facility] Last Admin: 02/21/16 11:03 Dose: Not Given - Labs Labs: 02/20/16 08:57 02/20/16 08:57 PT 10.6 SECONDS (9.7-12.2) 11/24/15 14:10 INR 1.0 11/24/15 14:10 APTT 25 SECONDS (21-34) 11/24/15 14:10 Attending/Attestation - Attestation I have personally seen and examined this patient.: Yes I have fully participated in the care of the patient.: Yes I have reviewed all pertinent clinical information, including history, physical exam and plan: Yes
[2016-03-01] MEDS: Phenytoin 100 mg/4 ml Oral Susp UD PEG SCH ×3 (09:47→17:57)
[2016-03-01] MEDS: Enoxaparin 40 mg Syringe SC SCH (09:48)
--- NOTE | 2016-03-02 01:39 | CP.PCM.PN ---
<RioNely - Last Filed: 03/02/16 01:37> Subjective - Date & Time of Evaluation Date of Evaluation: 03/02/16 Time of Evaluation: 01:38 - Subjective Subjective: Medicine Progress Note Patient seen and examined. No acute change in clinical condition. No acute events overnight. ROS could not be obtained. Objective - Vital Signs/Intake and Output Vital Signs (last 24 hours): Temp Pulse Resp BP Pulse Ox 97.5 F L 89 19 100/68 98 03/02/16 00:20 03/02/16 00:20 03/02/16 00:20 03/02/16 00:20 03/02/16 00:20 Intake and Output: 03/01/16 03/02/16 18:59 06:59 Intake Total 690 Output Total 500 Balance 190 - Medications Medications: Current Medications Aspirin (Aspirin) 325 mg PO DAILY [facility] Last Admin: 03/01/16 09:46 Dose: 325 mg Clopidogrel Bisulfate (Plavix) 75 mg PO DAILY [facility] Stop: 05/22/16 23:59 Last Admin: 03/01/16 09:47 Dose: 75 mg Enoxaparin Sodium (Lovenox) 40 mg SC DAILY [facility] Last Admin: 03/01/16 09:48 Dose: 40 mg Famotidine (Pepcid) 20 mg PO BID [facility] Last Admin: 03/01/16 17:58 Dose: 20 mg Lisinopril (Zestril) 5 mg PO DAILY [facility] Last Admin: 03/01/16 09:47 Dose: 5 mg Oxybutynin Chloride (Ditropan Tab) 5 mg PO TID [facility] Last Admin: 03/01/16 17:58 Dose: 5 mg Phenytoin (Dilantin) 100 mg PEG TID [facility] Last Admin: 03/01/16 17:57 Dose: 100 mg Polyethylene Glycol (Miralax) 17 gm PEG BID [facility] Last Admin: 02/21/16 11:03 Dose: Not Given - Labs Labs: 02/20/16 08:57 02/20/16 08:57 PT 10.6 SECONDS (9.7-12.2) 11/24/15 14:10 INR 1.0 11/24/15 14:10 APTT 25 SECONDS (21-34) 11/24/15 14:10 - Additional Findings Additional findings: - Constitutional Appears: Chronically Ill - Head Exam Head Exam: NORMAL INSPECTION - Eye Exam Eye Exam: EOMI, Normal appearance - ENT Exam ENT Exam: Mucous Membranes Dry Additional comments: trach - Respiratory Exam Respiratory Exam: Clear to Ausculation Bilateral, NORMAL BREATHING PATTERN - Cardiovascular Exam Cardiovascular Exam: REGULAR RHYTHM, +S1, +S2 - GI/Abdominal Exam GI & Abdominal Exam: Soft, Normal Bowel Sounds PEG tube in place. No active drainage from insertion site. - Extremities Exam Extremities Exam: Normal Inspection - Back Exam Additional comments: stage 2 sacral ulcer, healed - Neurological Exam Neurological Exam: Altered - Skin Skin Exam: Dry, Normal Color Assessment and Plan - Assessment and Plan (Free Text) Assessment: (1) Anoxic encephalopathy No acute change in mental status PEG tube operational, tube feedings 12/28: PEG tube placed at bedside by Dr. Chan. Pending placement (2) Respiratory Failure Trach collar in place, thick yellow secretions. 02/12 CXR: Linear atelectasis at the bases. Cardiomegaly. ID consult - Dr. Armstrong - help appreciated Sputum culture 12/06 + pseudomonas: probably colonization. No antibiotics per Dr. Armstrong tracheostomy with tube change by Dr. Chan on 11/27/15 (3) UTI Yoo in place, no sign of leakage. Afebrile, no WBC count. (4) CAD (coronary artery disease) Cardiac stents on 06/13/15. Continue Lisinopril 5mg PO daily Continue Plavix 75mg PO daily Continue ASA 325mg PO daily (5) Seizures Continue dilantin 100mg PEG TID SZ percaution, Fall precaution (6) Bed sore continue wound care, sensicare, and medihoney sacral ulcer. Stage II 0.5cm x 1.5cm. Healed. Continue repositioning of patient q2H. dolphin mattress. Heel air boots. (7) Prophylactic measure Lovenox 40 SC daily Pepcid 20 mg PO BID [facility] <Rashel Rodrigues - Last Filed: 03/02/16 11:30> Objective - Vital Signs/Intake and Output Vital Signs (last 24 hours): Temp Pulse Resp BP Pulse Ox 99.4 F 75 20 97/65 L 99 03/02/16 08:00 03/02/16 08:00 03/02/16 08:00 03/02/16 08:00 03/02/16 08:00 - Medications Medications: Current Medications Aspirin (Aspirin) 325 mg PO DAILY [facility] Last Admin: 03/02/16 10:12 Dose: 325 mg Clopidogrel Bisulfate (Plavix) 75 mg PO DAILY [facility] Stop: 05/22/16 23:59 Last Admin: 03/02/16 10:12 Dose: 75 mg Enoxaparin Sodium (Lovenox) 40 mg SC DAILY [facility] Last Admin: 03/02/16 10:12 Dose: 40 mg Famotidine (Pepcid) 20 mg PO BID [facility] Last Admin: 03/02/16 10:12 Dose: 20 mg Lisinopril (Zestril) 5 mg PO DAILY [facility] Last Admin: 03/02/16 10:12 Dose: Not Given Oxybutynin Chloride (Ditropan Tab) 5 mg PO TID [facility] Last Admin: 03/02/16 10:12 Dose: 5 mg Phenytoin (Dilantin) 100 mg PEG TID [facility] Last Admin: 03/02/16 10:12 Dose: 100 mg Polyethylene Glycol (Miralax) 17 gm PEG BID [facility] Last Admin: 02/21/16 11:03 Dose: Not Given - Labs Labs: 02/20/16 08:57 02/20/16 08:57 PT 10.6 SECONDS (9.7-12.2) 11/24/15 14:10 INR 1.0 11/24/15 14:10 APTT 25 SECONDS (21-34) 11/24/15 14:10 Attending/Attestation - Attestation I have personally seen and examined this patient.: Yes I have fully participated in the care of the patient.: Yes I have reviewed all pertinent clinical information, including history, physical exam and plan: Yes
[2016-03-02] MEDS: Phenytoin 100 mg/4 ml Oral Susp UD PEG SCH ×3 (10:12→18:35)
[2016-03-02] MEDS: Enoxaparin 40 mg Syringe SC SCH (10:12)
[2016-03-03] MEDS: Phenytoin 100 mg/4 ml Oral Susp UD PEG SCH ×3 (09:43→17:07)
[2016-03-03] MEDS: Enoxaparin 40 mg Syringe SC SCH (09:43)
--- NOTE | 2016-03-03 10:55 | CP.PCM.PN ---
<Nely Pate - Last Filed: 03/03/16 10:52> Subjective - Date & Time of Evaluation Date of Evaluation: 03/03/16 Time of Evaluation: 10:52 - Subjective Subjective: Medicine Progress Note Patient seen and examined. No acute change in clinical condition. Patient's PEG tube in place and intact. Yoo catheter draining dark yellow urine, no hematuria noted. No acute events overnight. Will f/u routine blood work today. ROS could not be obtained. Objective - Vital Signs/Intake and Output Vital Signs (last 24 hours): Temp Pulse Resp BP Pulse Ox 98.5 F 91 H 20 110/75 97 03/03/16 08:27 03/03/16 08:27 03/03/16 08:27 03/03/16 08:27 03/03/16 08:27 Intake and Output: 03/03/16 03/03/16 06:59 18:59 Intake Total 400 Output Total 1600 Balance -1200 - Medications Medications: Current Medications Aspirin (Aspirin) 325 mg PO DAILY [facility] Last Admin: 03/03/16 09:43 Dose: 325 mg Clopidogrel Bisulfate (Plavix) 75 mg PO DAILY [facility] Stop: 05/22/16 23:59 Last Admin: 03/03/16 09:43 Dose: 75 mg Enoxaparin Sodium (Lovenox) 40 mg SC DAILY [facility] Last Admin: 03/03/16 09:43 Dose: 40 mg Famotidine (Pepcid) 20 mg PO BID [facility] Last Admin: 03/03/16 09:43 Dose: 20 mg Lisinopril (Zestril) 5 mg PO DAILY [facility] Last Admin: 03/03/16 09:43 Dose: 5 mg Oxybutynin Chloride (Ditropan Tab) 5 mg PO TID [facility] Last Admin: 03/03/16 09:43 Dose: 5 mg Phenytoin (Dilantin) 100 mg PEG TID [facility] Last Admin: 03/03/16 09:43 Dose: 100 mg Polyethylene Glycol (Miralax) 17 gm PEG BID [facility] Last Admin: 02/21/16 11:03 Dose: Not Given - Labs Labs: 02/20/16 08:57 02/20/16 08:57 PT 10.6 SECONDS (9.7-12.2) 11/24/15 14:10 INR 1.0 11/24/15 14:10 APTT 25 SECONDS (21-34) 11/24/15 14:10 - Additional Findings Additional findings: - Constitutional Appears: Chronically Ill, Cachectic - Head Exam Head Exam: NORMAL INSPECTION - Eye Exam Eye Exam: EOMI, Normal appearance - ENT Exam ENT Exam: Mucous Membranes Dry Additional comments: trach - Respiratory Exam Respiratory Exam: Clear to Auscultation Bilateral, NORMAL BREATHING PATTERN - Cardiovascular Exam Cardiovascular Exam: REGULAR RHYTHM, +S1, +S2 - GI/Abdominal Exam GI & Abdominal Exam: Soft, Normal Bowel Sounds PEG tube in place. No active drainage from insertion site. - Extremities Exam Extremities Exam: Normal Inspection - Back Exam Additional comments: stage 2 sacral ulcer, healed - Neurological Exam Neurological Exam: Altered, Unresponsive - Skin Skin Exam: Dry, Normal Color Assessment and Plan - Assessment and Plan (Free Text) Assessment: (1) Anoxic encephalopathy No acute change in mental status PEG tube operational, tube feedings 12/28: PEG tube placed at bedside by Dr. Chan. Pending placement (2) Respiratory Failure Trach collar in place, thick yellow secretions. 02/12 CXR: Linear atelectasis at the bases. Cardiomegaly. ID consult - Dr. Armstrong - help appreciated Sputum culture 12/06 + pseudomonas: probably colonization. No antibiotics per Dr. Armstrong tracheostomy with tube change by Dr. Chan on 11/27/15 (3) UTI Yoo in place, no sign of leakage. Afebrile, no WBC count. (4) CAD (coronary artery disease) Cardiac stents on 06/13/15. Continue Lisinopril 5mg PO daily Continue Plavix 75mg PO daily Continue ASA 325mg PO daily (5) Seizures Continue dilantin 100mg PEG TID SZ percaution, Fall precaution (6) Bed sore continue wound care, sensicare, and medihoney sacral ulcer. Stage II 0.5cm x 1.5cm. Healed. Continue repositioning of patient q2H. dolphin mattress. Heel air boots. (7) Prophylactic measure Lovenox 40 SC daily Pepcid 20 mg PO BID [facility] <Donnell Ying - Last Filed: 03/03/16 16:54> Objective - Vital Signs/Intake and Output Vital Signs (last 24 hours): Temp Pulse Resp BP Pulse Ox 98.4 F 86 20 104/68 99 03/03/16 16:00 03/03/16 16:00 03/03/16 16:00 03/03/16 16:00 03/03/16 16:00 Intake and Output: 03/03/16 03/03/16 06:59 18:59 Intake Total 400 680 Output Total 1600 250 Balance -1200 430 - Medications Medications: Current Medications Aspirin (Aspirin) 325 mg PO DAILY [facility] Last Admin: 03/03/16 09:43 Dose: 325 mg Clopidogrel Bisulfate (Plavix) 75 mg PO DAILY [facility] Stop: 05/22/16 23:59 Last Admin: 03/03/16 09:43 Dose: 75 mg Enoxaparin Sodium (Lovenox) 40 mg SC DAILY [facility] Last Admin: 03/03/16 09:43 Dose: 40 mg Famotidine (Pepcid) 20 mg PO BID [facility] Last Admin: 03/03/16 09:43 Dose: 20 mg Lisinopril (Zestril) 5 mg PO DAILY [facility] Last Admin: 03/03/16 09:43 Dose: 5 mg Oxybutynin Chloride (Ditropan Tab) 5 mg PO TID [facility] Last Admin: 03/03/16 13:35 Dose: 5 mg Phenytoin (Dilantin) 100 mg PEG TID [facility] Last Admin: 03/03/16 13:38 Dose: 100 mg Polyethylene Glycol (Miralax) 17 gm PEG BID [facility] Last Admin: 02/21/16 11:03 Dose: Not Given - Labs Labs: 03/03/16 11:31 03/03/16 11:31 PT 10.6 SECONDS (9.7-12.2) 11/24/15 14:10 INR 1.0 11/24/15 14:10 APTT 25 SECONDS (21-34) 11/24/15 14:10 Attending/Attestation - Attestation I have personally seen and examined this patient.: Yes I have fully participated in the care of the patient.: Yes I have reviewed all pertinent clinical information, including history, physical exam and plan: Yes Notes (Text): 03/03/16 16:53 Patient seen and examined at bedside with the resident. No acute events overnight. Continue current management. Turn and position every 2 hours. Continue local wound care of the doctors ulcer which is healing.
[2016-03-03 11:41] LABS: BASO % 0.3 % (0.0-2.0); EOS # 0.6 K/uL (0.0-0.7); EOS % 5.2 % (0.0-4.0); HEMOGLOBIN 12.9 g/dL (12.0-18.0); LYMPH # 1.8 K/uL (1.0-4.3); LYMPH % 15.5 % (20.0-40.0); MEAN CELL VOLUME 91.3 fL (80.0-94.0); MEAN CORPUSCULAR HEMOGLOBIN 30.2 pg (27.0-31.0); MEAN CORPUSCULAR HGB CONC 33.1 g/dL (33.0-37.0); MONO # 1.1 K/uL (0.0-0.8); MONO % 9.6 % (0.0-10.0); NEUT # 8.2 K/uL (1.8-7.0); NEUT % 69.4 % (50.0-75.0); RBC 4.28 Mil/uL (4.40-5.90); RED CELL DISTRIBUTION WIDTH 13.8 % (11.5-14.5); WHITE BLOOD COUNT 11.8 K/uL (4.8-10.8)
[2016-03-03 11:50] LABS: ALBUMIN 3.5 g/dL (3.5-5.0)
[2016-03-03 11:53] LABS: AST/SGOT 27 U/L (17-59); GFR NON-AFRICAN AMERICAN > 60
[2016-03-03 11:54] LABS: ALT/SGPT 68 U/L (21-72); BLOOD UREA NITROGEN 24 mg/dL (9-20); CALCIUM 8.9 mg/dL (8.4-10.2)
[2016-03-03 12:22] LABS: ALB/GLOB RATIO 0.9 (1.0-2.1)
[2016-03-04] MEDS: Phenytoin 100 mg/4 ml Oral Susp UD PEG SCH ×3 (09:31→18:00)
--- NOTE | 2016-03-04 09:41 | CP.PCM.PN ---
<Nely Pate - Last Filed: 03/04/16 09:38> Subjective - Date & Time of Evaluation Date of Evaluation: 03/04/16 Time of Evaluation: 09:38 - Subjective Subjective: Medicine Progress Note Patient seen and examined. No acute change in clinical condition. No acute events overnight. Patient's PEG tube in place. Yoo catheter in place. ROS could not be obtained. Objective - Vital Signs/Intake and Output Vital Signs (last 24 hours): Temp Pulse Resp BP Pulse Ox 99.5 F 89 20 132/87 96 03/04/16 07:00 03/04/16 07:00 03/04/16 07:00 03/04/16 07:00 03/04/16 07:00 Intake and Output: 03/04/16 03/04/16 06:59 18:59 Intake Total 1324 Output Total 2600 Balance -1276 - Medications Medications: Current Medications Aspirin (Aspirin) 325 mg PO DAILY [facility] Last Admin: 03/04/16 09:32 Dose: 325 mg Clopidogrel Bisulfate (Plavix) 75 mg PO DAILY [facility] Stop: 05/22/16 23:59 Last Admin: 03/04/16 09:32 Dose: 75 mg Enoxaparin Sodium (Lovenox) 40 mg SC DAILY [facility] Last Admin: 03/03/16 09:43 Dose: 40 mg Famotidine (Pepcid) 20 mg PO BID [facility] Last Admin: 03/04/16 09:32 Dose: 20 mg Lisinopril (Zestril) 5 mg PO DAILY [facility] Last Admin: 03/04/16 09:33 Dose: 5 mg Oxybutynin Chloride (Ditropan Tab) 5 mg PO TID [facility] Last Admin: 03/03/16 17:07 Dose: 5 mg Phenytoin (Dilantin) 100 mg PEG TID [facility] Last Admin: 03/04/16 09:31 Dose: 100 mg Polyethylene Glycol (Miralax) 17 gm PEG BID [facility] Last Admin: 02/21/16 11:03 Dose: Not Given - Labs Labs: 03/03/16 11:31 03/03/16 11:31 PT 10.6 SECONDS (9.7-12.2) 11/24/15 14:10 INR 1.0 11/24/15 14:10 APTT 25 SECONDS (21-34) 11/24/15 14:10 - Additional Findings Additional findings: - Constitutional Appears: Chronically Ill, Cachectic - Head Exam Head Exam: NORMAL INSPECTION - Eye Exam Eye Exam: EOMI, Normal appearance - ENT Exam ENT Exam: Mucous Membranes Dry Additional comments: trach - Respiratory Exam Respiratory Exam: Clear to Auscultation Bilateral, NORMAL BREATHING PATTERN - Cardiovascular Exam Cardiovascular Exam: REGULAR RHYTHM, +S1, +S2 - GI/Abdominal Exam GI & Abdominal Exam: Soft, Normal Bowel Sounds PEG tube in place. No active drainage from insertion site. - Extremities Exam Extremities Exam: Normal Inspection - Back Exam Additional comments: stage 2 sacral ulcer, healed - Neurological Exam Neurological Exam: Unresponsive (baseline) - Skin Skin Exam: Dry, Normal Color Assessment and Plan - Assessment and Plan (Free Text) Assessment: (1) Anoxic encephalopathy No acute change in mental status PEG tube operational, tube feedings 12/28: PEG tube placed at bedside by Dr. Chan. Pending placement (2) Respiratory Failure Trach collar in place, thick yellow secretions. 02/12 CXR: Linear atelectasis at the bases. Cardiomegaly. ID consult - Dr. Armstrong - help appreciated Sputum culture 12/06 + pseudomonas: probably colonization. No antibiotics per Dr. Armstrong tracheostomy with tube change by Dr. Chan on 11/27/15 (3) UTI Yoo in place, no sign of leakage. Afebrile, no WBC count. (4) CAD (coronary artery disease) Cardiac stents on 06/13/15. Continue Lisinopril 5mg PO daily Continue Plavix 75mg PO daily Continue ASA 325mg PO daily (5) Seizures Continue dilantin 100mg PEG TID SZ percaution, Fall precaution (6) Bed sore continue wound care, sensicare, and medihoney sacral ulcer. Stage II 0.5cm x 1.5cm. Healed. Continue repositioning of patient q2H. dolphin mattress. Heel air boots. (7) Prophylactic measure Lovenox 40 SC daily Pepcid 20 mg PO BID [facility] <StepanDonnell M - Last Filed: 03/04/16 18:34> Objective - Vital Signs/Intake and Output Vital Signs (last 24 hours): Temp Pulse Resp BP Pulse Ox 98.4 F 76 20 119/78 99 03/04/16 15:37 03/04/16 16:38 03/04/16 15:37 03/04/16 15:37 03/04/16 15:37 Intake and Output: 03/04/16 03/04/16 06:59 18:59 Intake Total 1324 1060 Output Total 2600 300 Balance -1276 760 - Medications Medications: Current Medications Aspirin (Aspirin) 325 mg PO DAILY [facility] Last Admin: 03/04/16 09:32 Dose: 325 mg Clopidogrel Bisulfate (Plavix) 75 mg PO DAILY [facility] Stop: 05/22/16 23:59 Last Admin: 03/04/16 09:32 Dose: 75 mg Enoxaparin Sodium (Lovenox) 40 mg SC DAILY [facility] Last Admin: 03/04/16 10:59 Dose: 40 mg Famotidine (Pepcid) 20 mg PO BID [facility] Last Admin: 03/04/16 09:32 Dose: 20 mg Lisinopril (Zestril) 5 mg PO DAILY [facility] Last Admin: 03/04/16 09:33 Dose: 5 mg Oxybutynin Chloride (Ditropan Tab) 5 mg PO TID [facility] Last Admin: 03/04/16 13:57 Dose: 5 mg Phenytoin (Dilantin) 100 mg PEG TID [facility] Last Admin: 03/04/16 13:58 Dose: 100 mg Polyethylene Glycol (Miralax) 17 gm PEG BID [facility] Last Admin: 02/21/16 11:03 Dose: Not Given - Labs Labs: 03/03/16 11:31 03/03/16 11:31 PT 10.6 SECONDS (9.7-12.2) 11/24/15 14:10 INR 1.0 11/24/15 14:10 APTT 25 SECONDS (21-34) 11/24/15 14:10 Attending/Attestation - Attestation I have personally seen and examined this patient.: Yes I have fully participated in the care of the patient.: Yes I have reviewed all pertinent clinical information, including history, physical exam and plan: Yes Notes (Text): 03/04/16 18:32 Patient seen and examined at bedside with the resident. No change in clinical condition. We will continue current management. Turn and position the patient every 2 hours. Local wound care for the decubitus ulcers which are healing. Continue care of tracheostomy and PEG tube.
[2016-03-04] MEDS: Enoxaparin 40 mg Syringe SC SCH (10:59)
[2016-03-05] MEDS: Enoxaparin 40 mg Syringe SC SCH (09:31)
[2016-03-05] MEDS: Phenytoin 100 mg/4 ml Oral Susp UD PEG SCH ×3 (09:31→18:06)
--- NOTE | 2016-03-05 13:57 | CP.PCM.PN ---
<Nely Pate - Last Filed: 03/05/16 13:54> Subjective - Date & Time of Evaluation Date of Evaluation: 03/05/16 Time of Evaluation: 09:00 - Subjective Subjective: Medicine Progress Note Patient seen and examined. No acute events overnight. PEG tube in place. Yoo catheter in place, no hematuria noted. Patient responds to pain stimulation. ROS could not be obtained. Objective - Vital Signs/Intake and Output Vital Signs (last 24 hours): Temp Pulse Resp BP Pulse Ox 98.7 F 64 22 132/79 97 03/05/16 08:00 03/05/16 08:00 03/05/16 08:00 03/05/16 08:00 03/05/16 08:00 Intake and Output: 03/05/16 03/05/16 06:59 18:59 Intake Total 700 Output Total 900 Balance -200 - Medications Medications: Current Medications Aspirin (Aspirin) 325 mg PO DAILY [facility] Last Admin: 03/05/16 09:31 Dose: 325 mg Clopidogrel Bisulfate (Plavix) 75 mg PO DAILY [facility] Stop: 05/22/16 23:59 Last Admin: 03/05/16 09:31 Dose: 75 mg Enoxaparin Sodium (Lovenox) 40 mg SC DAILY [facility] Last Admin: 03/05/16 09:31 Dose: 40 mg Famotidine (Pepcid) 20 mg PO BID [facility] Last Admin: 03/05/16 09:31 Dose: 20 mg Lisinopril (Zestril) 5 mg PO DAILY [facility] Last Admin: 03/05/16 09:31 Dose: 5 mg Oxybutynin Chloride (Ditropan Tab) 5 mg PO TID [facility] [place] Last Admin: 03/05/16 13:02 Dose: 5 mg Phenytoin (Dilantin) 100 mg PEG TID [facility] Last Admin: 03/05/16 13:02 Dose: 100 mg Polyethylene Glycol (Miralax) 17 gm PEG BID [facility] Last Admin: 02/21/16 11:03 Dose: Not Given - Labs Labs: 03/03/16 11:31 03/03/16 11:31 PT 10.6 SECONDS (9.7-12.2) 11/24/15 14:10 INR 1.0 11/24/15 14:10 APTT 25 SECONDS (21-34) 11/24/15 14:10 - Additional Findings Additional findings: - Constitutional Appears: Chronically Ill, Cachectic - Head Exam Head Exam: NORMAL INSPECTION - Eye Exam Eye Exam: EOMI, Normal appearance - ENT Exam ENT Exam: Mucous Membranes Dry Additional comments: trach - Respiratory Exam Respiratory Exam: Clear to Auscultation Bilateral, NORMAL BREATHING PATTERN - Cardiovascular Exam Cardiovascular Exam: REGULAR RHYTHM, +S1, +S2 - GI/Abdominal Exam GI & Abdominal Exam: Soft, Normal Bowel Sounds PEG tube in place. No active drainage from insertion site. - Extremities Exam Extremities Exam: Normal Inspection - Neurological Exam Neurological Exam: Unresponsive (baseline) - Skin Skin Exam: Dry, Normal Color Assessment and Plan - Assessment and Plan (Free Text) Assessment: (1) Anoxic encephalopathy No acute change in mental status PEG tube operational, tube feedings 12/28: PEG tube placed at bedside by Dr. Chan. Pending placement (2) Respiratory Failure Trach collar in place, thick yellow secretions. 02/12 CXR: Linear atelectasis at the bases. Cardiomegaly. ID consult - Dr. Armstrong - help appreciated Sputum culture 12/06 + pseudomonas: probably colonization. No antibiotics per Dr. Armstrong tracheostomy with tube change by Dr. Chan on 11/27/15 (3) UTI Yoo in place, no sign of leakage. Afebrile, no WBC count. (4) CAD (coronary artery disease) Cardiac stents on 06/13/15. Continue Lisinopril 5mg PO daily Continue Plavix 75mg PO daily Continue ASA 325mg PO daily (5) Seizures Continue dilantin 100mg PEG TID SZ percaution, Fall precaution (6) Bed sore continue wound care, sensicare, and medihoney sacral ulcer. Stage II 0.5cm x 1.5cm. Healed. Continue repositioning of patient q2H. dolphin mattress. Heel air boots. (7) Prophylactic measure Lovenox 40 SC daily Pepcid 20 mg PO BID [facility] <Donnell Ying - Last Filed: 03/05/16 16:34> Objective - Vital Signs/Intake and Output Vital Signs (last 24 hours): Temp Pulse Resp BP Pulse Ox 97.7 F 80 19 101/73 96 03/05/16 15:00 03/05/16 15:00 03/05/16 15:00 03/05/16 15:00 03/05/16 15:00 Intake and Output: 03/05/16 03/05/16 06:59 18:59 Intake Total 700 800 Output Total 900 600 Balance -200 200 - Medications Medications: Current Medications Aspirin (Aspirin) 325 mg PO DAILY [facility] Last Admin: 03/05/16 09:31 Dose: 325 mg Clopidogrel Bisulfate (Plavix) 75 mg PO DAILY [facility] Stop: 05/22/16 23:59 Last Admin: 03/05/16 09:31 Dose: 75 mg Enoxaparin Sodium (Lovenox) 40 mg SC DAILY [facility] Last Admin: 03/05/16 09:31 Dose: 40 mg Famotidine (Pepcid) 20 mg PO BID [facility] Last Admin: 03/05/16 09:31 Dose: 20 mg Lisinopril (Zestril) 5 mg PO DAILY [facility] Last Admin: 03/05/16 09:31 Dose: 5 mg Oxybutynin Chloride (Ditropan Tab) 5 mg PO TID [facility] Last Admin: 03/05/16 13:02 Dose: 5 mg Phenytoin (Dilantin) 100 mg PEG TID [facility] Last Admin: 03/05/16 13:02 Dose: 100 mg Polyethylene Glycol (Miralax) 17 gm PEG BID [facility] Last Admin: 02/21/16 11:03 Dose: Not Given - Labs Labs: 03/03/16 11:31 03/03/16 11:31 PT 10.6 SECONDS (9.7-12.2) 11/24/15 14:10 INR 1.0 11/24/15 14:10 APTT 25 SECONDS (21-34) 11/24/15 14:10 Attending/Attestation - Attestation I have personally seen and examined this patient.: Yes I have fully participated in the care of the patient.: Yes I have reviewed all pertinent clinical information, including history, physical exam and plan: Yes Notes (Text): 03/05/16 16:30 Patient seen and examined at bedside No acute issues overnight Continue current management Turn and position every 2 hours Local wound care for Decubitus Ulcers- Healed
[2016-03-06] MEDS: Enoxaparin 40 mg Syringe SC SCH (09:27)
[2016-03-06] MEDS: Phenytoin 100 mg/4 ml Oral Susp UD PEG SCH ×3 (09:27→17:41)
--- NOTE | 2016-03-06 10:00 | CP.PCM.PN ---
<Nely Pate - Last Filed: 03/06/16 11:37> Subjective - Date & Time of Evaluation Date of Evaluation: 03/06/16 Time of Evaluation: 09:00 - Subjective Subjective: Medicine Progress Note Patient seen and examined. No acute events overnight. PEG tube in place. Yoo catheter in place, no hematuria noted. Yellow secretions present from trach. ROS could not be obtained. Objective - Vital Signs/Intake and Output Vital Signs (last 24 hours): Temp Pulse Resp BP Pulse Ox 98.7 F 78 20 135/82 97 03/06/16 07:42 03/06/16 07:42 03/06/16 07:42 03/06/16 07:42 03/06/16 07:42 Intake and Output: 03/06/16 03/06/16 06:59 18:59 Intake Total 1530 Output Total 1002 Balance 528 - Medications Medications: Current Medications Aspirin (Aspirin) 325 mg PO DAILY [facility] Last Admin: 03/05/16 09:31 Dose: 325 mg Clopidogrel Bisulfate (Plavix) 75 mg PO DAILY [facility] Stop: 05/22/16 23:59 Last Admin: 03/06/16 09:27 Dose: 75 mg Enoxaparin Sodium (Lovenox) 40 mg SC DAILY [facility] Last Admin: 03/06/16 09:27 Dose: 40 mg Famotidine (Pepcid) 20 mg PO BID [facility] Last Admin: 03/06/16 09:27 Dose: 20 mg Lisinopril (Zestril) 5 mg PO DAILY [facility] Last Admin: 03/06/16 09:27 Dose: 5 mg Oxybutynin Chloride (Ditropan Tab) 5 mg PO TID [facility] Last Admin: 03/06/16 09:27 Dose: 5 mg Phenytoin (Dilantin) 100 mg PEG TID [facility] Last Admin: 03/06/16 09:27 Dose: 100 mg Polyethylene Glycol (Miralax) 17 gm PEG BID [facility] Last Admin: 02/21/16 11:03 Dose: Not Given - Labs Labs: 16 11:31 03/03/16 11:31 PT 10.6 SECONDS (9.7-12.2) 11/24/15 14:10 INR 1.0 11/24/15 14:10 APTT 25 SECONDS (21-34) 11/24/15 14:10 - Additional Findings Additional findings: - Constitutional Appears: Chronically Ill, Cachectic - Head Exam Head Exam: NORMAL INSPECTION - Eye Exam Eye Exam: EOMI, Normal appearance - ENT Exam ENT Exam: Mucous Membranes Dry Additional comments: trach - Respiratory Exam Respiratory Exam: Clear to Auscultation Bilateral, NORMAL BREATHING PATTERN - Cardiovascular Exam Cardiovascular Exam: REGULAR RHYTHM, +S1, +S2 - GI/Abdominal Exam GI & Abdominal Exam: Soft, Normal Bowel Sounds PEG tube in place. No active drainage from insertion site. - Extremities Exam Extremities Exam: Normal Inspection - Neurological Exam Neurological Exam: Unresponsive (baseline) - Skin Skin Exam: Dry, Normal Color Assessment and Plan - Assessment and Plan (Free Text) Assessment: (1) Anoxic encephalopathy No acute change in mental status PEG tube operational, tube feedings 12/28: PEG tube placed at bedside by Dr. Chan. Pending placement (2) Respiratory Failure Trach collar in place, thick yellow secretions. 02/12 CXR: Linear atelectasis at the bases. Cardiomegaly. ID consult - Dr. Armstrong - help appreciated Sputum culture 12/06 + pseudomonas: probably colonization. No antibiotics per Dr. Armstrong tracheostomy with tube change by Dr. Chan on 11/27/15 (3) UTI Yoo in place, no sign of leakage. Afebrile, no WBC count. (4) CAD (coronary artery disease) Cardiac stents on 06/13/15. Continue Lisinopril 5mg PO daily Continue Plavix 75mg PO daily Continue ASA 325mg PO daily (5) Seizures Continue dilantin 100mg PEG TID SZ percaution, Fall precaution (6) Bed sore continue wound care, sensicare, and medihoney sacral ulcer. Stage II 0.5cm x 1.5cm. Healed. Continue repositioning of patient q2H. dolphin mattress. Heel air boots. (7) Prophylactic measure Lovenox 40 SC daily Pepcid 20 mg PO BID [facility] <Donnell Ying - Last Filed: 03/06/16 16:52> Objective - Vital Signs/Intake and Output Vital Signs (last 24 hours): Temp Pulse Resp BP Pulse Ox 98.0 F 87 20 97/57 L 100 03/06/16 15:10 03/06/16 15:10 03/06/16 15:10 03/06/16 15:10 03/06/16 15:10 Intake and Output: 03/06/16 03/06/16 06:59 18:59 Intake Total 1530 500 Output Total 1002 900 Balance 528 -400 - Medications Medications: Current Medications Aspirin (Aspirin) 325 mg PO DAILY [facility] Last Admin: 03/05/16 09:31 Dose: 325 mg Clopidogrel Bisulfate (Plavix) 75 mg PO DAILY [facility] Stop: 05/22/16 23:59 Last Admin: 03/06/16 09:27 Dose: 75 mg Enoxaparin Sodium (Lovenox) 40 mg SC DAILY [facility] Last Admin: 03/06/16 09:27 Dose: 40 mg Famotidine (Pepcid) 20 mg PO BID [facility] Last Admin: 03/06/16 09:27 Dose: 20 mg Lisinopril (Zestril) 5 mg PO DAILY [facility] Last Admin: 03/06/16 09:27 Dose: 5 mg Oxybutynin Chloride (Ditropan Tab) 5 mg PO TID [facility] Last Admin: 03/06/16 13:32 Dose: 5 mg Phenytoin (Dilantin) 100 mg PEG TID [facility] Last Admin: 03/06/16 13:32 Dose: 100 mg Polyethylene Glycol (Miralax) 17 gm PEG BID [facility] Last Admin: 02/21/16 11:03 Dose: Not Given - Labs Labs: 03/03/16 11:31 03/03/16 11:31 PT 10.6 SECONDS (9.7-12.2) 11/24/15 14:10 INR 1.0 11/24/15 14:10 APTT 25 SECONDS (21-34) 11/24/15 14:10 Attending/Attestation - Attestation I have personally seen and examined this patient.: Yes I have fully participated in the care of the patient.: Yes I have reviewed all pertinent clinical information, including history, physical exam and plan: Yes Notes (Text): 03/06/16 16:52 Patient seen and examined at bedside No acute events overnight Continue current management
[2016-03-07] MEDS: Phenytoin 100 mg/4 ml Oral Susp UD PEG SCH ×3 (09:49→18:01)
[2016-03-07] MEDS: Enoxaparin 40 mg Syringe SC SCH (09:51)
--- NOTE | 2016-03-07 11:16 | CP.PCM.PN ---
<Nely Pate - Last Filed: 03/07/16 11:14> Subjective - Date & Time of Evaluation Date of Evaluation: 03/07/16 Time of Evaluation: 10:00 - Subjective Subjective: Medicine Progress Note Patient seen and examined. No acute events overnight. PEG tube in place. Yoo catheter in place, no hematuria noted. Trach in place, no secretions noted. Patient's sacral wound inspected with attending, healed, no drainage. ROS could not be obtained. Objective - Vital Signs/Intake and Output Vital Signs (last 24 hours): Temp Pulse Resp BP Pulse Ox 98.9 F 85 22 122/82 99 03/07/16 08:00 03/07/16 08:00 03/07/16 08:00 03/07/16 08:00 03/07/16 08:00 Intake and Output: 03/07/16 03/07/16 06:59 18:59 Intake Total 1330 Output Total 1100 Balance 230 - Medications Medications: Current Medications Aspirin (Aspirin) 325 mg PO DAILY [facility] Last Admin: 03/07/16 09:51 Dose: 325 mg Clopidogrel Bisulfate (Plavix) 75 mg PO DAILY [facility] Stop: 05/22/16 23:59 Last Admin: 03/07/16 09:49 Dose: 75 mg Enoxaparin Sodium (Lovenox) 40 mg SC DAILY [facility] Last Admin: 03/07/16 09:51 Dose: 40 mg Famotidine (Pepcid) 20 mg PO BID [facility] Last Admin: 03/07/16 09:49 Dose: 20 mg Lisinopril (Zestril) 5 mg PO DAILY [facility] Last Admin: 03/07/16 09:49 Dose: 5 mg Oxybutynin Chloride (Ditropan Tab) 5 mg PO TID [facility] Last Admin: 03/07/16 09:49 Dose: 5 mg Phenytoin (Dilantin) 100 mg PEG TID [facility] Last Admin: 03/07/16 09:49 Dose: 100 mg - Labs Labs: 03/03/16 11:31 03/03/16 11:31 PT 10.6 SECONDS (9.7-12.2) 11/24/15 14:10 INR 1.0 11/24/15 14:10 APTT 25 SECONDS (21-34) 11/24/15 14:10 - Additional Findings Additional findings: - Constitutional Appears: Chronically Ill, Cachectic - Head Exam Head Exam: NORMAL INSPECTION - Eye Exam Eye Exam: EOMI, Normal appearance - ENT Exam ENT Exam: Mucous Membranes Dry Additional comments: trach - Respiratory Exam Respiratory Exam: Clear to Auscultation Bilateral, NORMAL BREATHING PATTERN - Cardiovascular Exam Cardiovascular Exam: REGULAR RHYTHM, +S1, +S2 - GI/Abdominal Exam GI & Abdominal Exam: Soft, Normal Bowel Sounds PEG tube in place. No active drainage from insertion site. - Extremities Exam Extremities Exam: Normal Inspection - Neurological Exam Neurological Exam: Unresponsive (baseline) - Skin Skin Exam: Dry, Normal Color Sacral ulcer stage 2 healed, no drainage Assessment and Plan - Assessment and Plan (Free Text) Assessment: (1) Anoxic encephalopathy No acute change in mental status PEG tube operational, tube feedings 12/28: PEG tube placed at bedside by Dr. Chan. Pending placement (2) Respiratory Failure Trach collar in place, thick yellow secretions. 02/12 CXR: Linear atelectasis at the bases. Cardiomegaly. ID consult - Dr. Armstrong - help appreciated Sputum culture 12/06 + pseudomonas: probably colonization. No antibiotics per Dr. Armstrong tracheostomy with tube change by Dr. Chan on 11/27/15 (3) UTI Yoo in place, no sign of leakage. Afebrile, no WBC count. (4) CAD (coronary artery disease) Cardiac stents on 06/13/15. Continue Lisinopril 5mg PO daily Continue Plavix 75mg PO daily Continue ASA 325mg PO daily (5) Seizures Continue dilantin 100mg PEG TID SZ percaution, Fall precaution (6) Bed sore continue wound care, sensicare, and medihoney sacral ulcer. Stage II 0.5cm x 1.5cm. Healed. Continue repositioning of patient q2H. dolphin mattress. Heel air boots. (7) Prophylactic measure Lovenox 40 SC daily Pepcid 20 mg PO BID [facility] <StepanDonnell M - Last Filed: 03/07/16 14:17> Objective - Vital Signs/Intake and Output Vital Signs (last 24 hours): Temp Pulse Resp BP Pulse Ox 98.9 F 85 22 122/82 99 03/07/16 08:00 03/07/16 08:00 03/07/16 08:00 03/07/16 08:00 03/07/16 08:00 Intake and Output: 03/07/16 03/07/16 06:59 18:59 Intake Total 1330 Output Total 1100 Balance 230 - Medications Medications: Current Medications Aspirin (Aspirin) 325 mg PO DAILY [facility] Last Admin: 03/07/16 09:51 Dose: 325 mg Clopidogrel Bisulfate (Plavix) 75 mg PO DAILY [facility] Stop: 05/22/16 23:59 Last Admin: 03/07/16 09:49 Dose: 75 mg Enoxaparin Sodium (Lovenox) 40 mg SC DAILY [facility] Last Admin: 03/07/16 09:51 Dose: 40 mg Famotidine (Pepcid) 20 mg PO BID [facility] Last Admin: 03/07/16 09:49 Dose: 20 mg Lisinopril (Zestril) 5 mg PO DAILY [facility] Last Admin: 03/07/16 09:49 Dose: 5 mg Oxybutynin Chloride (Ditropan Tab) 5 mg PO TID [facility] Last Admin: 03/07/16 13:15 Dose: 5 mg Phenytoin (Dilantin) 100 mg PEG TID [facility] Last Admin: 03/07/16 13:15 Dose: 100 mg - Labs Labs: 03/03/16 11:31 03/03/16 11:31 PT 10.6 SECONDS (9.7-12.2) 11/24/15 14:10 INR 1.0 11/24/15 14:10 APTT 25 SECONDS (21-34) 11/24/15 14:10 Attending/Attestation - Attestation I have personally seen and examined this patient.: Yes I have fully participated in the care of the patient.: Yes I have reviewed all pertinent clinical information, including history, physical exam and plan: Yes Notes (Text): 03/07/16 14:14 Patient was seen and examined at bedside with the resident. No change in clinical condition Decubitus Ulcer examined. Completely healed now. Continue care of PEG and Trach.
--- NOTE | 2016-03-08 01:18 | CP.PCM.PN ---
<Judith Baires Michelle - Last Filed: 03/08/16 01:15> Subjective - Date & Time of Evaluation Date of Evaluation: 03/08/16 Time of Evaluation: 12:45 - Subjective Subjective: PGY1 Progress Note: Patient seen and examined. PEG tube in place. Yoo catheter in place, no hematuria noted. Trach in place, no secretions noted. ROS could not be obtained. Objective - Vital Signs/Intake and Output Vital Signs (last 24 hours): Temp Pulse Resp BP Pulse Ox 97.7 F 88 19 116/73 98 03/08/16 00:14 03/08/16 00:14 03/08/16 00:14 03/08/16 00:14 03/08/16 00:14 Intake and Output: 03/07/16 03/08/16 18:59 06:59 Intake Total 750 400 Output Total 300 1800 Balance 450 -1400 - Medications Medications: Current Medications Aspirin (Aspirin) 325 mg PO DAILY [facility] Last Admin: 03/07/16 09:51 Dose: 325 mg Clopidogrel Bisulfate (Plavix) 75 mg PO DAILY [facility] Stop: 05/22/16 23:59 Last Admin: 03/07/16 09:49 Dose: 75 mg Enoxaparin Sodium (Lovenox) 40 mg SC DAILY [facility] Last Admin: 03/07/16 09:51 Dose: 40 mg Famotidine (Pepcid) 20 mg PO BID [facility] Last Admin: 03/07/16 18:01 Dose: 20 mg Lisinopril (Zestril) 5 mg PO DAILY [facility] Last Admin: 03/07/16 09:49 Dose: 5 mg Oxybutynin Chloride (Ditropan Tab) 5 mg PO TID [facility] Last Admin: 03/07/16 18:01 Dose: 5 mg Phenytoin (Dilantin) 100 mg PEG TID [facility] Last Admin: 03/07/16 18:01 Dose: 100 mg - Labs Labs: 03/03/16 11:31 03/03/16 11:31 PT 10.6 SECONDS (9.7-12.2) 11/24/15 14:10 INR 1.0 11/24/15 14:10 APTT 25 SECONDS (21-34) 11/24/15 14:10 - Constitutional Appears: No Acute Distress, Cachectic, Chronically Ill - Head Exam Head Exam: NORMAL INSPECTION - Eye Exam Eye Exam: EOMI, Normal appearance, PERRL - ENT Exam ENT Exam: Mucous Membranes Moist - Respiratory Exam Respiratory Exam: Clear to Ausculation Bilateral, NORMAL BREATHING PATTERN - Cardiovascular Exam Cardiovascular Exam: REGULAR RHYTHM, +S1, +S2 - GI/Abdominal Exam GI & Abdominal Exam: Soft, Normal Bowel Sounds - Extremities Exam Extremities Exam: Normal Inspection. absent: Pedal Edema - Neurological Exam Neurological Exam: absent: Alert, Awake - Skin Skin Exam: Dry, Normal Color Assessment and Plan (1) Urinary tract infection Status: Acute (2) Anoxic encephalopathy Status: Acute (3) Respiratory failure Status: Acute (4) CAD (coronary artery disease) Status: Acute (5) Seizures Status: Acute (6) Bed sore Status: Acute (7) Prophylactic measure Status: Acute - Assessment and Plan (Free Text) Assessment: (1) Anoxic encephalopathy No acute change in mental status PEG tube operational, tube feedings 12/28: PEG tube placed at bedside by Dr. Chan. Pending placement (2) Respiratory Failure Trach collar in place, thick yellow secretions. 02/12 CXR: Linear atelectasis at the bases. Cardiomegaly. ID consult - Dr. Armstrong - help appreciated Sputum culture 12/06 + pseudomonas: probably colonization. No antibiotics per Dr. Armstrong tracheostomy with tube change by Dr. Chan on 11/27/15 (3) UTI Yoo in place, no sign of leakage. Afebrile, no WBC count. (4) CAD (coronary artery disease) Cardiac stents on 06/13/15. Continue Lisinopril 5mg PO daily Continue Plavix 75mg PO daily Continue ASA 325mg PO daily (5) Seizures Continue dilantin 100mg PEG TID SZ percaution, Fall precaution (6) Bed sore continue wound care, sensicare, and medihoney sacral ulcer. Stage II 0.5cm x 1.5cm. Healed. Continue repositioning of patient q2H. dolphin mattress. Heel air boots. (7) Prophylactic measure Lovenox 40 SC daily Pepcid 20 mg PO BID [facility] <Donnell Ying - Last Filed: 03/08/16 15:27> Objective - Vital Signs/Intake and Output Vital Signs (last 24 hours): Temp Pulse Resp BP Pulse Ox 97.8 F 70 20 118/77 99 03/08/16 07:52 03/08/16 07:52 03/08/16 07:52 03/08/16 07:52 03/08/16 07:52 Intake and Output: 03/08/16 03/08/16 06:59 18:59 Intake Total 400 1580 Output Total 1800 1500 Balance -1400 80 - Medications Medications: Current Medications Aspirin (Aspirin) 325 mg PO DAILY [facility] Last Admin: 03/08/16 09:09 Dose: 325 mg Clopidogrel Bisulfate (Plavix) 75 mg PO DAILY [facility] Stop: 05/22/16 23:59 Last Admin: 03/08/16 09:10 Dose: 75 mg Enoxaparin Sodium (Lovenox) 40 mg SC DAILY [facility] Last Admin: 03/08/16 09:08 Dose: 40 mg Famotidine (Pepcid) 20 mg PO BID [facility] Last Admin: 03/08/16 09:10 Dose: 20 mg Lisinopril (Zestril) 5 mg PO DAILY [facility] Last Admin: 03/08/16 09:09 Dose: 5 mg Oxybutynin Chloride (Ditropan Tab) 5 mg PO TID [facility] Last Admin: 03/08/16 14:19 Dose: 5 mg Phenytoin (Dilantin) 100 mg PEG TID [facility] Last Admin: 03/08/16 14:18 Dose: 100 mg - Labs Labs: 03/03/16 11:31 03/03/16 11:31 PT 10.6 SECONDS (9.7-12.2) 11/24/15 14:10 INR 1.0 11/24/15 14:10 APTT 25 SECONDS (21-34) 11/24/15 14:10 Attending/Attestation - Attestation I have personally seen and examined this patient.: Yes I have fully participated in the care of the patient.: Yes I have reviewed all pertinent clinical information, including history, physical exam and plan: Yes Notes (Text): 03/08/16 15:27 Patient seen and examined at bedside with the resident. No change in clinical condition. Continue current management. Continue turn and position every 2 hours.
[2016-03-08] MEDS: Enoxaparin 40 mg Syringe SC SCH (09:08)
[2016-03-08] MEDS: Phenytoin 100 mg/4 ml Oral Susp UD PEG SCH ×3 (09:10→18:07)
--- NOTE | 2016-03-09 00:08 | CP.PCM.PN ---
<Judith Baires Michelle - Last Filed: 03/09/16 00:07> Subjective - Date & Time of Evaluation Date of Evaluation: 03/09/16 Time of Evaluation: 12:05 - Subjective Subjective: PGY1 Progress Note: Patient seen and examined. PEG tube in place. Yoo catheter in place, no hematuria noted. Trach in place, no secretions noted. ROS could not be obtained. Objective - Vital Signs/Intake and Output Vital Signs (last 24 hours): Temp Pulse Resp BP Pulse Ox 98.4 F 77 20 114/75 97 03/08/16 15:48 03/08/16 15:48 03/08/16 15:48 03/08/16 15:48 03/08/16 15:48 Intake and Output: 03/08/16 03/09/16 18:59 06:59 Intake Total 1580 530 Output Total 1500 800 Balance 80 -270 - Medications Medications: Current Medications Aspirin (Aspirin) 325 mg PO DAILY [facility] Last Admin: 03/08/16 09:09 Dose: 325 mg Clopidogrel Bisulfate (Plavix) 75 mg PO DAILY [facility] Stop: 05/22/16 23:59 Last Admin: 03/08/16 09:10 Dose: 75 mg Enoxaparin Sodium (Lovenox) 40 mg SC DAILY [facility] Last Admin: 03/08/16 09:08 Dose: 40 mg Famotidine (Pepcid) 20 mg PO BID [facility] Last Admin: 03/08/16 18:07 Dose: 20 mg Lisinopril (Zestril) 5 mg PO DAILY [facility] Last Admin: 03/08/16 09:09 Dose: 5 mg Oxybutynin Chloride (Ditropan Tab) 5 mg PO TID [facility] Last Admin: 03/08/16 18:08 Dose: 5 mg Phenytoin (Dilantin) 100 mg PEG TID [facility] Last Admin: 03/08/16 18:07 Dose: 100 mg - Labs Labs: 03/03/16 11:31 03/03/16 11:31 PT 10.6 SECONDS (9.7-12.2) 11/24/15 14:10 INR 1.0 11/24/15 14:10 APTT 25 SECONDS (21-34) 11/24/15 14:10 - Constitutional Appears: Non-toxic, No Acute Distress, Cachectic, Chronically Ill - Head Exam Head Exam: NORMAL INSPECTION - Eye Exam Eye Exam: PERRL. absent: EOMI - ENT Exam ENT Exam: Mucous Membranes Moist - Respiratory Exam Respiratory Exam: Clear to Ausculation Bilateral, NORMAL BREATHING PATTERN - Cardiovascular Exam Cardiovascular Exam: REGULAR RHYTHM, +S1, +S2 - GI/Abdominal Exam GI & Abdominal Exam: Soft, Normal Bowel Sounds Additional comments: PEG tube in place - Extremities Exam Extremities Exam: Normal Capillary Refill. absent: Pedal Edema - Neurological Exam Neurological Exam: Altered. absent: Alert, Oriented x3 - Skin Skin Exam: Normal Color, Warm Assessment and Plan (1) Urinary tract infection Status: Acute (2) Anoxic encephalopathy Status: Acute (3) Respiratory failure Status: Acute (4) CAD (coronary artery disease) Status: Acute (5) Seizures Status: Acute (6) Bed sore Status: Acute (7) Prophylactic measure Status: Acute - Assessment and Plan (Free Text) Assessment: (1) Anoxic encephalopathy No acute change in mental status PEG tube operational, tube feedings 12/28: PEG tube placed at bedside by Dr. Chan. Pending placement (2) Respiratory Failure Trach collar in place, thick yellow secretions. 02/12 CXR: Linear atelectasis at the bases. Cardiomegaly. ID consult - Dr. Armstrong - help appreciated Sputum culture 12/06 + pseudomonas: probably colonization. No antibiotics per Dr. Armstrong tracheostomy with tube change by Dr. Chan on 11/27/15 (3) UTI Yoo in place, no sign of leakage. Afebrile, no WBC count. (4) CAD (coronary artery disease) Cardiac stents on 06/13/15. Continue Lisinopril 5mg PO daily Continue Plavix 75mg PO daily Continue ASA 325mg PO daily (5) Seizures Continue dilantin 100mg PEG TID SZ percaution, Fall precaution (6) Bed sore continue wound care, sensicare, and medihoney sacral ulcer. Stage II 0.5cm x 1.5cm. Healed. Continue repositioning of patient q2H. dolphin mattress. Heel air boots. (7) Prophylactic measure Lovenox 40 SC daily Pepcid 20 mg PO BID [facility] <Donnell Ying - Last Filed: 03/09/16 16:21> Objective - Vital Signs/Intake and Output Vital Signs (last 24 hours): Temp Pulse Resp BP Pulse Ox 99.6 F 87 20 108/73 99 03/09/16 07:51 03/09/16 07:51 03/09/16 07:51 03/09/16 07:51 03/09/16 07:51 Intake and Output: 03/09/16 03/09/16 06:59 18:59 Intake Total 1230 600 Output Total 1600 450 Balance -370 150 - Medications Medications: Current Medications Aspirin (Aspirin) 325 mg PO DAILY [facility] Last Admin: 03/09/16 09:36 Dose: 325 mg Clopidogrel Bisulfate (Plavix) 75 mg PO DAILY [facility] Stop: 05/22/16 23:59 Last Admin: 03/09/16 09:36 Dose: 75 mg Famotidine (Pepcid) 20 mg PO BID [facility] Last Admin: 03/09/16 09:36 Dose: 20 mg Lisinopril (Zestril) 5 mg PO DAILY [facility] Last Admin: 03/09/16 09:36 Dose: 5 mg Oxybutynin Chloride (Ditropan Tab) 5 mg PO TID [facility] Last Admin: 03/09/16 13:04 Dose: 5 mg Phenytoin (Dilantin) 100 mg PEG TID [facility] Last Admin: 03/09/16 13:04 Dose: 100 mg - Labs Labs: 03/03/16 11:31 03/03/16 11:31 PT 10.6 SECONDS (9.7-12.2) 11/24/15 14:10 INR 1.0 11/24/15 14:10 APTT 25 SECONDS (21-34) 11/24/15 14:10 Attending/Attestation - Attestation I have personally seen and examined this patient.: Yes I have fully participated in the care of the patient.: Yes I have reviewed all pertinent clinical information, including history, physical exam and plan: Yes Notes (Text): 03/09/16 16:19 Patient seen and examined at bedside earlier today. There is no change in clinical condition. Continue current management. Turn and position the patient every 2 hours. Decubitus ulcer is healed now. Continue care of tracheostomy and PEG tube.
[2016-03-09] MEDS: Enoxaparin 40 mg Syringe SC SCH (09:36)
[2016-03-09] MEDS: Phenytoin 100 mg/4 ml Oral Susp UD PEG SCH ×3 (09:38→17:53)
[2016-03-10 07:30] LABS: BASO # 0.1 K/uL (0.0-0.2); BASO % 0.7 % (0.0-2.0); EOS # 0.7 K/uL (0.0-0.7); EOS % 9.1 % (0.0-4.0); HEMOGLOBIN 12.6 g/dL (12.0-18.0); LYMPH # 1.9 K/uL (1.0-4.3); MEAN CELL VOLUME 91.5 fL (80.0-94.0); MEAN CORPUSCULAR HEMOGLOBIN 30.3 pg (27.0-31.0); MEAN CORPUSCULAR HGB CONC 33.1 g/dL (33.0-37.0); MEAN PLATELET VOLUME 8.2 fL (7.2-11.7); NEUT # 4.5 K/uL (1.8-7.0); NEUT % 55.2 % (50.0-75.0); RBC 4.17 Mil/uL (4.40-5.90); RED CELL DISTRIBUTION WIDTH 14.3 % (11.5-14.5); WHITE BLOOD COUNT 8.1 K/uL (4.8-10.8)
[2016-03-10 07:38] LABS: ALBUMIN 3.3 g/dL (3.5-5.0)
[2016-03-10 07:41] LABS: GFR NON-AFRICAN AMERICAN > 60
[2016-03-10 07:42] LABS: ALB/GLOB RATIO 0.9 (1.0-2.1); ALT/SGPT 68 U/L (21-72); AST/SGOT 28 U/L (17-59); BLOOD UREA NITROGEN 21 mg/dL (9-20)
[2016-03-10 07:43] LABS: CALCIUM 8.8 mg/dL (8.4-10.2)
[2016-03-10] MEDS: Phenytoin 100 mg/4 ml Oral Susp UD PEG SCH ×3 (10:39→18:03)
--- NOTE | 2016-03-10 16:38 | CP.PCM.PN ---
<Mariella Wagner - Last Filed: 03/10/16 16:35> Subjective - Date & Time of Evaluation Date of Evaluation: 03/10/16 Time of Evaluation: 09:00 - Subjective Subjective: Medicine Progress Note- Dr. Rodrigues's service: Patient seen and examined at bedside this morning. Patient with no acute events overnight. PEG tube, Trach collar in place. Yoo in place with cherie colored urine. ROS unobtainable. Objective - Vital Signs/Intake and Output Vital Signs (last 24 hours): Temp Pulse Resp BP Pulse Ox 98.7 F 81 20 135/86 96 03/10/16 08:04 03/10/16 08:04 03/10/16 08:04 03/10/16 08:04 03/10/16 08:04 Intake and Output: 03/10/16 03/10/16 06:59 18:59 Intake Total 830 1050 Output Total 400 1000 Balance 430 50 - Medications Medications: Current Medications Aspirin (Aspirin) 325 mg PO DAILY [facility] Last Admin: 03/10/16 10:39 Dose: 325 mg Clopidogrel Bisulfate (Plavix) 75 mg PO DAILY [facility] Stop: 05/22/16 23:59 Last Admin: 03/10/16 10:39 Dose: 75 mg Famotidine (Pepcid) 20 mg PO BID [facility] Last Admin: 03/10/16 10:39 Dose: 20 mg Lisinopril (Zestril) 5 mg PO DAILY [facility] Last Admin: 03/10/16 10:40 Dose: 5 mg Oxybutynin Chloride (Ditropan Tab) 5 mg PO TID [facility] Last Admin: 03/10/16 13:08 Dose: 5 mg Phenytoin (Dilantin) 100 mg PEG TID [facility] Last Admin: 03/10/16 13:08 Dose: 100 mg - Labs Labs: 03/10/16 07:22 03/10/16 07:22 PT 10.6 SECONDS (9.7-12.2) 11/24/15 14:10 INR 1.0 11/24/15 14:10 APTT 25 SECONDS (21-34) 11/24/15 14:10 - Constitutional Appears: No Acute Distress - Head Exam Head Exam: NORMAL INSPECTION, NORMOCEPHALIC - ENT Exam ENT Exam: Mucous Membranes Moist - Neck Exam Neck Exam: Full ROM Additional comments: +trach collar in place - Respiratory Exam Respiratory Exam: Clear to Ausculation Bilateral, NORMAL BREATHING PATTERN - Cardiovascular Exam Cardiovascular Exam: REGULAR RHYTHM, +S1, +S2 - GI/Abdominal Exam GI & Abdominal Exam: Soft. absent: Distended, Tenderness - Extremities Exam Extremities Exam: Normal Inspection Additional comments: +boots in place - Neurological Exam Neurological Exam: absent: Alert, Oriented x3 - Skin Skin Exam: Normal Color, Warm Assessment and Plan - Assessment and Plan (Free Text) Assessment: (1) Anoxic encephalopathy No acute change in mental status PEG tube operational, continue tube feedings Labs on Mondays and . Labwork reviewed today and WNL. 12/28: PEG tube placed at bedside by Dr. Chan. Pending placement (2) Respiratory Failure Trach collar in place, thick yellow secretions. WBC 4/18 within normal limits this AM. 02/12 CXR: Linear atelectasis at the bases. Cardiomegaly. ID consult - Dr. Armstrong - help appreciated Sputum culture 12/06 + pseudomonas: probably colonization. No antibiotics per Dr. Armstrong tracheostomy with tube change by Dr. Chan on 11/27/15 (3) UTI WBC 4/18 within normal limits this AM. Yoo in place, no sign of leakage. Afebrile, no WBC count. (4) CAD (coronary artery disease) Cardiac stents on 06/13/15. Continue Lisinopril 5mg PO daily Continue Plavix 75mg PO daily Continue ASA 325mg PO daily (5) Seizures Continue dilantin 100mg PEG TID SZ percaution, Fall precaution (6) Bed sore continue wound care, sensicare, and medihoney sacral ulcer. Stage II 0.5cm x 1.5cm. Healed. Continue repositioning of patient q2H. dolphin mattress. Heel air boots. (7) Prophylactic measure Lovenox 40 SC daily Pepcid 20 mg PO BID [facility] <Rashel Rodrigues - Last Filed: 03/10/16 16:59> Objective - Vital Signs/Intake and Output Vital Signs (last 24 hours): Temp Pulse Resp BP Pulse Ox 98.7 F 81 20 135/86 96 03/10/16 08:04 03/10/16 08:04 03/10/16 08:04 03/10/16 08:03/10/16 08:04 Intake and Output: 03/10/16 03/10/16 06:59 18:59 Intake Total 830 1050 Output Total 400 1000 Balance 430 50 - Medications Medications: Current Medications Aspirin (Aspirin) 325 mg PO DAILY [facility] Last Admin: 03/10/16 10:39 Dose: 325 mg Clopidogrel Bisulfate (Plavix) 75 mg PO DAILY [facility] Stop: 05/22/16 23:59 Last Admin: 03/10/16 10:39 Dose: 75 mg Enoxaparin Sodium (Lovenox) 40 mg SC DAILY [facility] Famotidine (Pepcid) 20 mg PO BID [facility] Last Admin: 03/10/16 10:39 Dose: 20 mg Lisinopril (Zestril) 5 mg PO DAILY [facility] Last Admin: 03/10/16 10:40 Dose: 5 mg Oxybutynin Chloride (Ditropan Tab) 5 mg PO TID [facility] Last Admin: 03/10/16 13:08 Dose: 5 mg Phenytoin (Dilantin) 100 mg PEG TID [facility] Last Admin: 03/10/16 13:08 Dose: 100 mg - Labs Labs: 03/10/16 07:22 03/10/16 07:22 PT 10.6 SECONDS (9.7-12.2) 11/24/15 14:10 INR 1.0 11/24/15 14:10 APTT 25 SECONDS (21-34) 11/24/15 14:10 Attending/Attestation - Attestation I have personally seen and examined this patient.: Yes I have fully participated in the care of the patient.: Yes I have reviewed all pertinent clinical information, including history, physical exam and plan: Yes Notes (Text): 03/10/16 16:47 Patient was seen and examined during the round with the resident. pt has no new events, Pt remains nonverbal tolerating Peg tube feeding pt has no fever No skin break down at the sacral area cont supporive mx Dc planning when bed is available in [facility]
[2016-03-10] MEDS: Enoxaparin 40 mg Syringe SC SCH (18:02)
--- NOTE | 2016-03-11 10:02 | CP.PCM.PN ---
<Mariella Wagner - Last Filed: 03/11/16 12:27> Subjective - Date & Time of Evaluation Date of Evaluation: 03/11/16 Time of Evaluation: 08:00 - Subjective Subjective: Medicine Progress Note- Dr. Rodrigues's service: Patient seen and examined at bedside this morning. PEG tube, Trach collar in placr and Yoo in place. ROS unobtainable since patient is non verbal. Patient with no acute events overnight as per nursing. Objective - Vital Signs/Intake and Output Vital Signs (last 24 hours): Temp Pulse Resp BP Pulse Ox 98 F 87 20 100/65 99 03/10/16 23:59 03/10/16 23:59 03/10/16 23:59 03/10/16 23:59 03/10/16 23:59 Intake and Output: 03/11/16 03/11/16 06:59 18:59 Intake Total 830 700 Output Total 1200 600 Balance -370 100 - Medications Medications: Current Medications Aspirin (Aspirin) 325 mg PO DAILY [facility] Last Admin: 03/10/16 10:39 Dose: 325 mg Clopidogrel Bisulfate (Plavix) 75 mg PO DAILY [facility] Stop: 05/22/16 23:59 Last Admin: 03/10/16 10:39 Dose: 75 mg Enoxaparin Sodium (Lovenox) 40 mg SC DAILY [facility] Last Admin: 03/10/16 18:02 Dose: 40 mg Famotidine (Pepcid) 20 mg PO BID [facility] Last Admin: 03/10/16 18:03 Dose: 20 mg Lisinopril (Zestril) 5 mg PO DAILY [facility] Last Admin: 03/10/16 10:40 Dose: 5 mg Oxybutynin Chloride (Ditropan Tab) 5 mg PO TID [facility] Last Admin: 03/10/16 18:03 Dose: 5 mg Phenytoin (Dilantin) 100 mg PEG TID [facility] Last Admin: 03/10/16 18:03 Dose: 100 mg - Labs Labs: 03/10/16 07:22 03/10/16 07:22 PT 10.6 SECONDS (9.7-12.2) 11/24/15 14:10 INR 1.0 11/24/15 14:10 APTT 25 SECONDS (21-34) 11/24/15 14:10 - Constitutional Appears: No Acute Distress - Head Exam Head Exam: NORMAL INSPECTION, NORMOCEPHALIC - Eye Exam Eye Exam: Normal appearance - ENT Exam ENT Exam: Mucous Membranes Moist - Neck Exam Additional comments: +trach collar - Respiratory Exam Respiratory Exam: Clear to Ausculation Bilateral, NORMAL BREATHING PATTERN. absent: Accessory Muscle Use - Cardiovascular Exam Cardiovascular Exam: REGULAR RHYTHM, +S1, +S2 - GI/Abdominal Exam GI & Abdominal Exam: Soft. absent: Distended, Tenderness - Extremities Exam Extremities Exam: absent: Full ROM Additional comments: +air boots on - Neurological Exam Neurological Exam: Awake - Skin Skin Exam: Normal Color, Warm Assessment and Plan - Assessment and Plan (Free Text) Assessment: (1) Anoxic encephalopathy No acute change in mental status PEG tube operational, continue tube feedings Labs on Mondays and . Labwork reviewed 03/10/16 and WNL. 12/28: PEG tube placed at bedside by Dr. Chan. Pending placement (2) Respiratory Failure Trach collar in place, thick yellow secretions. WBC 18 within normal limits. 02/12 CXR: Linear atelectasis at the bases. Cardiomegaly. ID consult - Dr. Armstrong - help appreciated Sputum culture 12/06 + pseudomonas: probably colonization. No antibiotics per Dr. Armstrong tracheostomy with tube change by Dr. Chan on 11/27/15 (3) UTI WBC 4/18 within normal limits this AM. Yoo in place, no sign of leakage. Afebrile, no WBC count. (4) CAD (coronary artery disease) Cardiac stents on 06/13/15. Continue Lisinopril 5mg PO daily Continue Plavix 75mg PO daily Continue ASA 325mg PO daily (5) Seizures Continue dilantin 100mg PEG TID SZ percaution, Fall precaution (6) Bed sore continue wound care, sensicare, and medihoney sacral ulcer. Stage II 0.5cm x 1.5cm. Healed. Continue repositioning of patient q2H. dolphin mattress. Heel air boots. (7) Prophylactic measure Lovenox 40 SC daily Pepcid 20 mg PO BID [facility] <Rashel Rodrigues - Last Filed: 03/11/16 17:25> Objective - Vital Signs/Intake and Output Vital Signs (last 24 hours): Temp Pulse Resp BP Pulse Ox 98.8 F 79 20 129/76 98 03/11/16 16:11 03/11/16 16:11 03/11/16 16:11 03/11/16 16:11 03/11/16 16:11 Intake and Output: 03/11/16 03/11/16 06:59 18:59 Intake Total 830 1500 Output Total 1200 1000 Balance -370 500 - Medications Medications: Current Medications Aspirin (Aspirin) 325 mg PO DAILY [facility] Last Admin: 03/11/16 10:05 Dose: 325 mg Clopidogrel Bisulfate (Plavix) 75 mg PO DAILY [facility] Stop: 05/22/16 23:59 Last Admin: 03/11/16 10:05 Dose: 75 mg Enoxaparin Sodium (Lovenox) 40 mg SC DAILY [facility] Last Admin: 03/11/16 10:06 Dose: 40 mg Famotidine (Pepcid) 20 mg PO BID [facility] Last Admin: 03/11/16 10:05 Dose: 20 mg Lisinopril (Zestril) 5 mg PO DAILY [facility] Last Admin: 03/11/16 10:05 Dose: 5 mg Oxybutynin Chloride (Ditropan Tab) 5 mg PO TID [facility] Last Admin: 03/11/16 13:33 Dose: 5 mg Phenytoin (Dilantin) 100 mg PEG TID [facility] Last Admin: 03/11/16 13:34 Dose: 100 mg - Labs Labs: 03/10/16 07:22 03/10/16 07:22 PT 10.6 SECONDS (9.7-12.2) 11/24/15 14:10 INR 1.0 11/24/15 14:10 APTT 25 SECONDS (21-34) 11/24/15 14:10 Attending/Attestation - Attestation I have personally seen and examined this patient.: Yes I have fully participated in the care of the patient.: Yes I have reviewed all pertinent clinical information, including history, physical exam and plan: Yes
[2016-03-11] MEDS: Phenytoin 100 mg/4 ml Oral Susp UD PEG SCH ×3 (10:05→18:02)
[2016-03-11] MEDS: Enoxaparin 40 mg Syringe SC SCH (10:06)
[2016-03-12] MEDS: Enoxaparin 40 mg Syringe SC SCH (10:08)
[2016-03-12] MEDS: Phenytoin 100 mg/4 ml Oral Susp UD PEG SCH ×3 (10:08→16:58)
--- NOTE | 2016-03-12 15:45 | CP.PCM.PN ---
<Mariella Wagner - Last Filed: 03/12/16 16:49> Subjective - Date & Time of Evaluation Date of Evaluation: 03/12/16 Time of Evaluation: 08:00 - Subjective Subjective: Medicine Progress Note- Dr. Rodrigues's service: Patient seen and examined at bedside this morning. Patient with no acute events overnight. PEG tube, Trach collar in place. Yoo in place with cherie colored urine. ROS unobtainable since patient is non verbal. Objective - Vital Signs/Intake and Output Vital Signs (last 24 hours): Temp Pulse Resp BP Pulse Ox 97.4 F L 65 20 146/88 97 03/12/16 08:00 03/12/16 08:00 03/12/16 08:00 03/12/16 08:00 03/12/16 08:00 Intake and Output: 03/12/16 03/12/16 06:59 18:59 Intake Total 1200 Output Total 1000 400 Balance 200 -400 - Medications Medications: Current Medications Aspirin (Aspirin) 325 mg PO DAILY [facility] Last Admin: 03/12/16 10:08 Dose: 325 mg Clopidogrel Bisulfate (Plavix) 75 mg PO DAILY [facility] Stop: 05/22/16 23:59 Last Admin: 03/12/16 10:08 Dose: 75 mg Enoxaparin Sodium (Lovenox) 40 mg SC DAILY [facility] Last Admin: 03/12/16 10:08 Dose: 40 mg Famotidine (Pepcid) 20 mg PO BID [facility] Last Admin: 03/12/16 10:08 Dose: 20 mg Lisinopril (Zestril) 5 mg PO DAILY [facility] Last Admin: 03/12/16 10:08 Dose: 5 mg Oxybutynin Chloride (Ditropan Tab) 5 mg PO TID [facility] Last Admin: 03/12/16 13:48 Dose: 5 mg Phenytoin (Dilantin) 100 mg PEG TID [facility] Last Admin: 03/12/16 13:48 Dose: 100 mg - Labs Labs: 03/10/16 07:22 03/10/16 07:22 PT 10.6 SECONDS (9.7-12.2) 11/24/15 14:10 INR 1.0 11/24/15 14:10 APTT 25 SECONDS (21-34) 11/24/15 14:10 - Constitutional Appears: No Acute Distress - Head Exam Head Exam: NORMAL INSPECTION, NORMOCEPHALIC - Eye Exam Eye Exam: Normal appearance - ENT Exam ENT Exam: Mucous Membranes Moist - Neck Exam Neck Exam: absent: Full ROM Additional comments: +trach collar in place - Respiratory Exam Respiratory Exam: Clear to Ausculation Bilateral, NORMAL BREATHING PATTERN - Cardiovascular Exam Cardiovascular Exam: REGULAR RHYTHM, +S1, +S2 - GI/Abdominal Exam GI & Abdominal Exam: Soft. absent: Distended, Tenderness Additional comments: +PEG tube in place - Extremities Exam Extremities Exam: Normal Inspection. absent: Pedal Edema Additional comments: +air boots on - Neurological Exam Neurological Exam: Awake - Skin Skin Exam: Normal Color, Warm Assessment and Plan - Assessment and Plan (Free Text) Assessment: (1) Anoxic encephalopathy No acute change in mental status PEG tube in place, continue tube feedings Labs on Mondays and . Labwork reviewed last on 03/10/16 and WNL. f/u labs in the AM. 12/28: PEG tube placed at bedside by Dr. Chan. Pending placement (2) Respiratory Failure Trach collar in place, thick yellow secretions. WBC 4/18 within normal limits this AM. 02/12 CXR: Linear atelectasis at the bases. Cardiomegaly. ID consult - Dr. Armstrong - help appreciated Sputum culture 12/06 + pseudomonas: probably colonization. No antibiotics per Dr. Armstrong tracheostomy with tube change by Dr. Chan on 11/27/15 (3) h/o UTI Afebrile, no WBC count. WBC 4/18 within normal limits. f/u labs in the AM. Yoo in place, no sign of leakage. (4) CAD (coronary artery disease) Cardiac stents on 06/13/15. Continue Lisinopril 5mg PO daily Continue Plavix 75mg PO daily Continue ASA 325mg PO daily (5) Seizures Continue dilantin 100mg PEG TID SZ percaution, Fall precaution (6) Bed sore continue wound care, sensicare, and medihoney sacral ulcer. Stage II 0.5cm x 1.5cm. Healed. Continue repositioning of patient q2H. dolphin mattress. Heel air boots. (7) Prophylactic measure Lovenox 40 SC daily Pepcid 20 mg PO BID [facility] <RaviRashel - Last Filed: 03/12/16 18:45> Objective - Vital Signs/Intake and Output Vital Signs (last 24 hours): Temp Pulse Resp BP Pulse Ox 97.7 F 76 20 132/76 100 03/12/16 16:00 03/12/16 16:00 03/12/16 16:00 03/12/16 16:00 03/12/16 16:00 Intake and Output: 03/12/16 03/12/16 06:59 18:59 Intake Total 1200 800 Output Total 1000 400 Balance 200 400 - Medications Medications: Current Medications Aspirin (Aspirin) 325 mg PO DAILY [facility] Last Admin: 03/12/16 10:08 Dose: 325 mg Clopidogrel Bisulfate (Plavix) 75 mg PO DAILY [facility] Stop: 05/22/16 23:59 Last Admin: 03/12/16 10:08 Dose: 75 mg Enoxaparin Sodium (Lovenox) 40 mg SC DAILY [facility] Last Admin: 03/12/16 10:08 Dose: 40 mg Famotidine (Pepcid) 20 mg PO BID [facility] Last Admin: 03/12/16 17:06 Dose: 20 mg Lisinopril (Zestril) 5 mg PO DAILY [facility] Last Admin: 03/12/16 10:08 Dose: 5 mg Oxybutynin Chloride (Ditropan Tab) 5 mg PO TID [facility] Last Admin: 03/12/16 17:06 Dose: 5 mg Phenytoin (Dilantin) 100 mg PEG TID [facility] Last Admin: 03/12/16 16:58 Dose: 100 mg - Labs Labs: 03/10/16 07:22 03/10/16 07:22 PT 10.6 SECONDS (9.7-12.2) 11/24/15 14:10 INR 1.0 11/24/15 14:10 APTT 25 SECONDS (21-34) 11/24/15 14:10 Attending/Attestation - Attestation I have personally seen and examined this patient.: Yes I have fully participated in the care of the patient.: Yes I have reviewed all pertinent clinical information, including history, physical exam and plan: Yes
[2016-03-13 08:00] LABS: BASO % 0.2 % (0.0-2.0); EOS # 0.7 K/uL (0.0-0.7); EOS % 6.7 % (0.0-4.0); LYMPH # 1.9 K/uL (1.0-4.3); MEAN CELL VOLUME 91.7 fL (80.0-94.0); MEAN CORPUSCULAR HEMOGLOBIN 30.5 pg (27.0-31.0); MEAN CORPUSCULAR HGB CONC 33.2 g/dL (33.0-37.0); MEAN PLATELET VOLUME 8.2 fL (7.2-11.7); MONO % 9.3 % (0.0-10.0); NEUT # 7.4 K/uL (1.8-7.0); NEUT % 66.8 % (50.0-75.0); NRBC % 0.1 % (0.0-2.0); RBC 4.27 Mil/uL (4.40-5.90)
[2016-03-13 08:04] LABS: ALBUMIN 3.5 g/dL (3.5-5.0)
[2016-03-13 08:06] LABS: GFR NON-AFRICAN AMERICAN > 60
[2016-03-13 08:07] LABS: ALB/GLOB RATIO 0.9 (1.0-2.1); ALT/SGPT 67 U/L (21-72); AST/SGOT 25 U/L (17-59); BLOOD UREA NITROGEN 20 mg/dL (9-20)
[2016-03-13 08:08] LABS: CALCIUM 8.8 mg/dL (8.4-10.2)
[2016-03-13] MEDS: Phenytoin 100 mg/4 ml Oral Susp UD PEG SCH ×3 (09:04→18:39)
[2016-03-13] MEDS: Enoxaparin 40 mg Syringe SC SCH (09:10)
--- NOTE | 2016-03-13 14:55 | CP.PCM.PN ---
<Mariella Wagner - Last Filed: 03/13/16 14:17> Subjective - Date & Time of Evaluation Date of Evaluation: 03/13/16 Time of Evaluation: 08:00 - Subjective Subjective: Medicine Progress Note- Dr. Rodrigues's service: Patient seen and examined at bedside this AM. Patient's PEG tube checked. Patient's body checked with nursing staff and attending. Trach collar in place. Patient with lester mucus aspirations. No acute events overnight. Objective - Vital Signs/Intake and Output Vital Signs (last 24 hours): Temp Pulse Resp BP Pulse Ox 98 F 83 20 134/86 98 03/13/16 07:45 03/13/16 07:45 03/13/16 07:45 03/13/16 07:45 03/13/16 07:45 Intake and Output: 03/13/16 03/13/16 06:59 18:59 Intake Total 800 1500 Output Total 750 700 Balance 50 800 - Medications Medications: Current Medications Aspirin (Aspirin) 325 mg PO DAILY [facility] Last Admin: 03/13/16 09:04 Dose: 325 mg Clopidogrel Bisulfate (Plavix) 75 mg PO DAILY [facility] Stop: 05/22/16 23:59 Last Admin: 03/13/16 09:09 Dose: 75 mg Enoxaparin Sodium (Lovenox) 40 mg SC DAILY [facility] Last Admin: 03/13/16 09:10 Dose: 40 mg Famotidine (Pepcid) 20 mg PO BID [facility] Last Admin: 03/13/16 09:09 Dose: 20 mg Lisinopril (Zestril) 5 mg PO DAILY [facility] Last Admin: 03/13/16 09:08 Dose: 5 mg Mupirocin (Bactroban Ointment) 0 gm TOP DAILY [facility] Mupirocin (Bactroban Ointment) 1 gm TOP ONCE ONE Stop: 03/13/16 15:01 Oxybutynin Chloride (Ditropan Tab) 5 mg PO TID [facility] Last Admin: 03/13/16 13:14 Dose: 5 mg Phenytoin (Dilantin) 100 mg PEG TID [facility] Last Admin: 03/13/16 13:14 Dose: 100 mg - Labs Labs: 03/13/16 07:24 03/13/16 07:24 PT 10.6 SECONDS (9.7-12.2) 11/24/15 14:10 INR 1.0 11/24/15 14:10 APTT 25 SECONDS (21-34) 11/24/15 14:10 - Constitutional Appears: No Acute Distress - Head Exam Head Exam: NORMAL INSPECTION, NORMOCEPHALIC - Eye Exam Eye Exam: Normal appearance - ENT Exam ENT Exam: Mucous Membranes Moist - Neck Exam Neck Exam: Normal Inspection - Respiratory Exam Respiratory Exam: Clear to Ausculation Bilateral, NORMAL BREATHING PATTERN - Cardiovascular Exam Cardiovascular Exam: REGULAR RHYTHM, +S1, +S2 - GI/Abdominal Exam GI & Abdominal Exam: Soft. absent: Distended, Tenderness - Extremities Exam Extremities Exam: Full ROM, Normal Inspection. absent: Pedal Edema - Neurological Exam Neurological Exam: Altered, Awake - Skin Skin Exam: Dry, Normal Color, Warm Assessment and Plan - Assessment and Plan (Free Text) Assessment: (1) Anoxic encephalopathy No acute change in mental status PEG tube in place, continue tube feedings Labs on Mondays and . 12/28: PEG tube placed at bedside by Dr. Chan. Pending placement (2) Respiratory Failure Trach collar in place, thick yellow secretions. 02/12 CXR: Linear atelectasis at the bases. Cardiomegaly. ID consult - Dr. Armstrong - help appreciated Sputum culture 12/06 + pseudomonas: probably colonization. No antibiotics per Dr. Armstrong tracheostomy with tube change by Dr. Chan on 11/27/15 (3) h/o UTI Afebrile, no WBC count. WBC 4/18 within normal limits. Labwork reviewed today showed WBC 11.0. Follow up repeat CBC in the AM. Yoo in place, no sign of leakage. (4) CAD (coronary artery disease) Cardiac stents on 06/13/15. Continue Lisinopril 5mg PO daily Continue Plavix 75mg PO daily Continue ASA 325mg PO daily (5) Seizures Continue dilantin 100mg PEG TID SZ percaution, Fall precaution (6) Bed sore continue wound care, sensicare, and medihoney sacral ulcer. Stage II 0.5cm x 1.5cm. Healed. Continue repositioning of patient q2H. dolphin mattress. Heel air boots. (7) Prophylactic measure Lovenox 40 SC daily Pepcid 20 mg PO BID [facility] <Nyandra,Rashel - Last Filed: 03/13/16 15:41> Objective - Vital Signs/Intake and Output Vital Signs (last 24 hours): Temp Pulse Resp BP Pulse Ox 98 F 83 20 134/86 98 03/13/16 07:45 03/13/16 07:45 03/13/16 07:45 03/13/16 07:45 03/13/16 07:45 Intake and Output: 03/13/16 03/13/16 06:59 18:59 Intake Total 800 1500 Output Total 750 700 Balance 50 800 - Medications Medications: Current Medications Aspirin (Aspirin) 325 mg PO DAILY [facility] Last Admin: 03/13/16 09:04 Dose: 325 mg Clopidogrel Bisulfate (Plavix) 75 mg PO DAILY [facility] Stop: 05/22/16 23:59 Last Admin: 03/13/16 09:09 Dose: 75 mg Enoxaparin Sodium (Lovenox) 40 mg SC DAILY [facility] Last Admin: 03/13/16 09:10 Dose: 40 mg Famotidine (Pepcid) 20 mg PO BID [facility] Last Admin: 03/13/16 09:09 Dose: 20 mg Lisinopril (Zestril) 5 mg PO DAILY [facility] Last Admin: 03/13/16 09:08 Dose: 5 mg Mupirocin (Bactroban Ointment) 0 gm TOP DAILY [facility] Oxybutynin Chloride (Ditropan Tab) 5 mg PO TID [facility] Last Admin: 03/13/16 13:14 Dose: 5 mg Phenytoin (Dilantin) 100 mg PEG TID [facility] Last Admin: 03/13/16 13:14 Dose: 100 mg - Labs Labs: 03/13/16 07:24 03/13/16 07:24 PT 10.6 SECONDS (9.7-12.2) 11/24/15 14:10 INR 1.0 11/24/15 14:10 APTT 25 SECONDS (21-34) 11/24/15 14:10 Attending/Attestation - Attestation I have personally seen and examined this patient.: Yes I have fully participated in the care of the patient.: Yes I have reviewed all pertinent clinical information, including history, physical exam and plan: Yes
[2016-03-14 08:42] LABS: BASO % 0.3 % (0.0-2.0); EOS # 0.6 K/uL (0.0-0.7); EOS % 7.3 % (0.0-4.0); HEMOGLOBIN 12.8 g/dL (12.0-18.0); LYMPH # 1.8 K/uL (1.0-4.3); LYMPH % 21.7 % (20.0-40.0); MEAN CELL VOLUME 92.4 fL (80.0-94.0); MEAN CORPUSCULAR HEMOGLOBIN 30.1 pg (27.0-31.0); MEAN CORPUSCULAR HGB CONC 32.6 g/dL (33.0-37.0); MEAN PLATELET VOLUME 8.5 fL (7.2-11.7); MONO # 0.9 K/uL (0.0-0.8); MONO % 10.7 % (0.0-10.0); NRBC % 0.1 % (0.0-2.0); RBC 4.26 Mil/uL (4.40-5.90); RED CELL DISTRIBUTION WIDTH 14.4 % (11.5-14.5); WHITE BLOOD COUNT 8.4 K/uL (4.8-10.8)
[2016-03-14] MEDS: Phenytoin 100 mg/4 ml Oral Susp UD PEG SCH ×2 (10:48→13:10)
[2016-03-14] MEDS: Enoxaparin 40 mg Syringe SC SCH (10:49)
--- NOTE | 2016-03-14 11:59 | CP.PCM.PN ---
<Yesenia Mayer - Last Filed: 03/14/16 11:56> Subjective - Date & Time of Evaluation Date of Evaluation: 03/14/16 Time of Evaluation: 11:56 - Subjective Subjective: Medicine Progress Note- Dr. Rodrigues's service: Patient seen and examined at bedside. Unresponsive to verbal stimuli, unable to obtain ROS from patient. Trach and PEG in place. No acute overnight events. Objective - Vital Signs/Intake and Output Vital Signs (last 24 hours): Temp Pulse Resp BP Pulse Ox 98.8 F 68 18 118/76 98 03/14/16 08:30 03/14/16 08:30 03/14/16 08:30 03/14/16 08:30 03/14/16 08:30 Intake and Output: 03/14/16 03/14/16 06:59 18:59 Intake Total 1550 Output Total 800 Balance 750 - Medications Medications: Current Medications Aspirin (Aspirin) 325 mg PO DAILY [facility] Last Admin: 03/14/16 10:50 Dose: 325 mg Clopidogrel Bisulfate (Plavix) 75 mg PO DAILY [facility] Stop: 05/22/16 23:59 Last Admin: 03/14/16 10:49 Dose: 75 mg Enoxaparin Sodium (Lovenox) 40 mg SC DAILY [facility] Last Admin: 03/14/16 10:49 Dose: 40 mg Famotidine (Pepcid) 20 mg PO BID [facility] Last Admin: 03/14/16 10:49 Dose: 20 mg Lisinopril (Zestril) 5 mg PO DAILY [facility] Last Admin: 03/14/16 10:50 Dose: 5 mg Mupirocin (Bactroban Ointment) 0 gm TOP DAILY [facility] Last Admin: 03/14/16 09:06 Dose: 1 applic Oxybutynin Chloride (Ditropan Tab) 5 mg PO TID [facility] Last Admin: 03/14/16 10:50 Dose: 5 mg Phenytoin (Dilantin) 100 mg PEG TID [facility] Last Admin: 03/14/16 10:48 Dose: 100 mg - Labs Labs: 03/14/16 07:41 03/13/16 07:24 PT 10.6 SECONDS (9.7-12.2) 11/24/15 14:10 INR 1.0 11/24/15 14:10 APTT 25 SECONDS (21-34) 11/24/15 14:10 - Constitutional Appears: No Acute Distress - Head Exam Head Exam: NORMAL INSPECTION - ENT Exam ENT Exam: Mucous Membranes Dry - Respiratory Exam Respiratory Exam: absent: Wheezes Additional comments: trach in place. secretions on auscultation - Cardiovascular Exam Cardiovascular Exam: REGULAR RHYTHM, +S1, +S2 - GI/Abdominal Exam GI & Abdominal Exam: Soft, Normal Bowel Sounds Additional comments: PEG in place - Extremities Exam Extremities Exam: absent: Pedal Edema Additional comments: B/L heel protectors in place - Neurological Exam Neurological Exam: Awake. absent: Oriented x3 - Psychiatric Exam Psychiatric exam: absent: Normal Affect, Normal Mood - Skin Skin Exam: Normal Color, Warm Assessment and Plan - Assessment and Plan (Free Text) Assessment: (1) Anoxic encephalopathy No acute change in mental status PEG tube in place, continue tube feedings Labs on Mondays and . 12/28: PEG tube placed at bedside by Dr. Chan. Pending placement (2) Respiratory Failure Trach collar in place, thick yellow secretions. 02/12 CXR: Linear atelectasis at the bases. Cardiomegaly. ID consult - Dr. Armstrong - help appreciated Sputum culture 12/06 + pseudomonas: probably colonization. No antibiotics per Dr. Armstrong tracheostomy with tube change by Dr. Chan on 11/27/15 (3) h/o UTI 03/14: WBC was elevated at 11 on 03/13. Repeat WBC today was WNL at 8.4, Afebrile Yoo in place, slightly cloudy Afebrile, no WBC count. WBC 03/10 within normal limits. Labwork reviewed today showed WBC 11.0. Follow up repeat CBC in the AM. Yoo in place, no sign of leakage. (4) CAD (coronary artery disease) Cardiac stents on 06/13/15. Continue Lisinopril 5mg PO daily Continue Plavix 75mg PO daily Continue ASA 325mg PO daily (5) Seizures Continue dilantin 100mg PEG TID SZ percaution, Fall precaution (6) Bed sore continue wound care, sensicare, and medihoney sacral ulcer. Stage II 0.5cm x 1.5cm. Healed. Continue repositioning of patient q2H. dolphin mattress. Heel air boots. (7) Prophylactic measure Lovenox 40 SC daily Pepcid 20 mg PO BID [facility] <Rashel Rodrigues - Last Filed: 03/14/16 14:06> Objective - Vital Signs/Intake and Output Vital Signs (last 24 hours): Temp Pulse Resp BP Pulse Ox 98.8 F 68 18 118/76 98 03/14/16 08:30 03/14/16 08:30 03/14/16 08:30 03/14/16 08:30 03/14/16 08:30 Intake and Output: 03/14/16 03/14/16 06:59 18:59 Intake Total 1550 Output Total 800 Balance 750 - Medications Medications: Current Medications Aspirin (Aspirin) 325 mg PO DAILY [facility] Last Admin: 03/14/16 10:50 Dose: 325 mg Clopidogrel Bisulfate (Plavix) 75 mg PO DAILY [facility] Stop: 05/22/16 23:59 Last Admin: 03/14/16 10:49 Dose: 75 mg Enoxaparin Sodium (Lovenox) 40 mg SC DAILY [facility] Last Admin: 03/14/16 10:49 Dose: 40 mg Famotidine (Pepcid) 20 mg PO BID [facility] Last Admin: 03/14/16 10:49 Dose: 20 mg Lisinopril (Zestril) 5 mg PO DAILY [facility] Last Admin: 03/14/16 10:50 Dose: 5 mg Mupirocin (Bactroban Ointment) 0 gm TOP DAILY [facility] Last Admin: 03/14/16 09:06 Dose: 1 applic Oxybutynin Chloride (Ditropan Tab) 5 mg PO TID [facility] Last Admin: 03/14/16 13:10 Dose: 5 mg Phenytoin (Dilantin) 100 mg PEG TID [facility] Last Admin: 03/14/16 13:10 Dose: 100 mg - Labs Labs: 03/14/16 07:41 03/13/16 07:24 PT 10.6 SECONDS (9.7-12.2) 11/24/15 14:10 INR 1.0 11/24/15 14:10 APTT 25 SECONDS (21-34) 11/24/15 14:10 Attending/Attestation - Attestation I have personally seen and examined this patient.: Yes I have fully participated in the care of the patient.: Yes I have reviewed all pertinent clinical information, including history, physical exam and plan: Yes Notes (Text): 03/14/16 14:04 Patient was seen and examined during the round with the resident. pt has no new events No acute resp distress... tolerating Trach collar Tolerating Peg tube feeding Sacral wd is already healed urine is slightly cloudy--> to have extra free water bolus of 250 dc today
[2016-03-16] MEDS: Phenytoin 100 mg/4 ml Oral Susp UD PEG SCH ×3 (10:11→18:00)
[2016-03-16] MEDS: Enoxaparin 40 mg Syringe SC SCH (10:13)
[2016-03-17 08:05] LABS: BASO % 0.4 % (0.0-2.0); EOS # 0.7 K/uL (0.0-0.7); EOS % 6.9 % (0.0-4.0); LYMPH # 1.8 K/uL (1.0-4.3); LYMPH % 17.2 % (20.0-40.0); MEAN CELL VOLUME 91.8 fL (80.0-94.0); MEAN CORPUSCULAR HEMOGLOBIN 30.5 pg (27.0-31.0); MEAN CORPUSCULAR HGB CONC 33.2 g/dL (33.0-37.0); MEAN PLATELET VOLUME 8.3 fL (7.2-11.7); MONO # 1.1 K/uL (0.0-0.8); MONO % 10.7 % (0.0-10.0); NEUT # 6.9 K/uL (1.8-7.0); NEUT % 64.8 % (50.0-75.0); NRBC % 0.1 % (0.0-2.0); RBC 4.25 Mil/uL (4.40-5.90); RED CELL DISTRIBUTION WIDTH 14.2 % (11.5-14.5); WHITE BLOOD COUNT 10.6 K/uL (4.8-10.8)
[2016-03-17 08:12] LABS: ALBUMIN 3.5 g/dL (3.5-5.0)
[2016-03-17 08:14] LABS: GFR NON-AFRICAN AMERICAN > 60
[2016-03-17 08:15] LABS: ALT/SGPT 58 U/L (21-72); AST/SGOT 27 U/L (17-59); BLOOD UREA NITROGEN 21 mg/dL (9-20)
[2016-03-17 08:16] LABS: CALCIUM 8.3 mg/dL (8.4-10.2)
[2016-03-17 08:18] LABS: ALB/GLOB RATIO 0.9 (1.0-2.1)
[2016-03-17] MEDS: Phenytoin 100 mg/4 ml Oral Susp UD PEG SCH ×3 (10:58→18:46)
[2016-03-17] MEDS: Enoxaparin 40 mg Syringe SC SCH (10:59)
--- NOTE | 2016-03-17 14:25 | CP.PCM.PN ---
<Mariella Wagner - Last Filed: 03/17/16 14:22> Subjective - Date & Time of Evaluation Date of Evaluation: 03/17/16 Time of Evaluation: 09:00 - Subjective Subjective: Medicine Progress Note- Dr. Ying's service: Patient seen and examined at bedside this morning. Patient with no acute events overnight. PEG tube and trach collar in place. Yoo in place. ROS unobtainable since patient is non verbal at baseline. Objective - Vital Signs/Intake and Output Vital Signs (last 24 hours): Temp Pulse Resp BP Pulse Ox 99 F 81 20 110/73 98 03/17/16 08:00 03/17/16 08:00 03/17/16 08:00 03/17/16 08:00 03/17/16 08:00 Intake and Output: 03/17/16 03/17/16 06:59 18:59 Intake Total 850 Output Total 800 Balance 50 - Medications Medications: Current Medications Aspirin (Aspirin) 325 mg PO DAILY [facility] Last Admin: 03/17/16 10:57 Dose: 325 mg Clopidogrel Bisulfate (Plavix) 75 mg PO DAILY [facility] Stop: 05/22/16 23:59 Last Admin: 03/17/16 10:57 Dose: 75 mg Enoxaparin Sodium (Lovenox) 40 mg SC DAILY [facility] Last Admin: 03/17/16 10:59 Dose: 40 mg Famotidine (Pepcid) 20 mg PO BID [facility] Last Admin: 03/17/16 10:58 Dose: 20 mg Lisinopril (Zestril) 5 mg PO DAILY [facility] Last Admin: 03/17/16 10:58 Dose: 5 mg Mupirocin (Bactroban Ointment) 0 gm TOP DAILY [facility] Last Admin: 03/17/16 10:59 Dose: 1 applic Oxybutynin Chloride (Ditropan Tab) 5 mg PO TID [facility] Last Admin: 03/17/16 14:06 Dose: 5 mg Phenytoin (Dilantin) 100 mg PEG TID [facility] Last Admin: 03/17/16 14:08 Dose: 100 mg - Labs Labs: 03/17/16 07:44 03/17/16 07:44 PT 10.6 SECONDS (9.7-12.2) 11/24/15 14:10 INR 1.0 11/24/15 14:10 APTT 25 SECONDS (21-34) 11/24/15 14:10 - Constitutional Appears: No Acute Distress - Head Exam Head Exam: NORMAL INSPECTION, NORMOCEPHALIC - Eye Exam Eye Exam: EOMI, Normal appearance - ENT Exam ENT Exam: Mucous Membranes Moist - Neck Exam Neck Exam: Full ROM, Normal Inspection Additional comments: +trach collar - Respiratory Exam Respiratory Exam: Clear to Ausculation Bilateral, NORMAL BREATHING PATTERN - Cardiovascular Exam Cardiovascular Exam: REGULAR RHYTHM, +S1, +S2 - GI/Abdominal Exam GI & Abdominal Exam: Soft. absent: Distended Additional comments: +PEG - Extremities Exam Extremities Exam: Normal Inspection. absent: Full ROM, Pedal Edema Additional comments: +air boots on - Neurological Exam Neurological Exam: Awake - Skin Skin Exam: Dry, Intact, Warm Assessment and Plan - Assessment and Plan (Free Text) Assessment: (1) Anoxic encephalopathy No acute change in mental status PEG tube operational, continue tube feedings Labs on Mondays and . Labwork reviewed today and within normal limits. 12/28: PEG tube placed at bedside by Dr. Chan. Pending placement (2) Respiratory Failure Trach collar in place, thick yellow secretions. WBC 4/25 within normal limits this AM. 02/12 CXR: Linear atelectasis at the bases. Cardiomegaly. ID consult - Dr. Armstrong - help appreciated Sputum culture 12/06 + pseudomonas: probably colonization. No antibiotics per Dr. Armstrong tracheostomy with tube change by Dr. Chan on 11/27/15 (3) UTI WBC 4/25 within normal limits this AM. Yoo in place, no sign of leakage. Afebrile, no WBC count. (4) CAD (coronary artery disease) Cardiac stents on 06/13/15. Continue Lisinopril 5mg PO daily Continue Plavix 75mg PO daily Continue ASA 325mg PO daily (5) Seizures Continue dilantin 100mg PEG TID SZ percaution, Fall precaution (6) Bed sore continue wound care, sensicare, and medihoney sacral ulcer. Stage II 0.5cm x 1.5cm. Healed. Continue repositioning of patient q2H. dolphin mattress. Heel air boots. (7) Prophylactic measure Lovenox 40 SC daily Pepcid 20 mg PO BID [facility] <Stepan,Donnell M - Last Filed: 03/17/16 15:35> Objective - Vital Signs/Intake and Output Vital Signs (last 24 hours): Temp Pulse Resp BP Pulse Ox 99 F 81 20 110/73 98 03/17/16 08:00 03/17/16 08:00 03/17/16 08:00 03/17/16 08:00 03/17/16 08:00 Intake and Output: 03/17/16 03/17/16 06:59 18:59 Intake Total 850 Output Total 800 350 Balance 50 -350 - Medications Medications: Current Medications Aspirin (Aspirin) 325 mg PO DAILY [facility] Last Admin: 03/17/16 10:57 Dose: 325 mg Clopidogrel Bisulfate (Plavix) 75 mg PO DAILY [facility] Stop: 05/22/16 23:59 Last Admin: 03/17/16 10:57 Dose: 75 mg Enoxaparin Sodium (Lovenox) 40 mg SC DAILY [facility] Last Admin: 03/17/16 10:59 Dose: 40 mg Famotidine (Pepcid) 20 mg PO BID [facility] Last Admin: 03/17/16 10:58 Dose: 20 mg Lisinopril (Zestril) 5 mg PO DAILY [facility] Last Admin: 03/17/16 10:58 Dose: 5 mg Mupirocin (Bactroban Ointment) 0 gm TOP DAILY [facility] Last Admin: 03/17/16 10:59 Dose: 1 applic Oxybutynin Chloride (Ditropan Tab) 5 mg PO TID [facility] Last Admin: 03/17/16 14:06 Dose: 5 mg Phenytoin (Dilantin) 100 mg PEG TID [facility] Last Admin: 03/17/16 14:08 Dose: 100 mg - Labs Labs: 03/17/16 07:44 03/17/16 07:44 PT 10.6 SECONDS (9.7-12.2) 11/24/15 14:10 INR 1.0 11/24/15 14:10 APTT 25 SECONDS (21-34) 11/24/15 14:10 Attending/Attestation - Attestation I have personally seen and examined this patient.: Yes I have fully participated in the care of the patient.: Yes I have reviewed all pertinent clinical information, including history, physical exam and plan: Yes Notes (Text): 03/17/16 15:34 Patient seen and examined at bedside with the resident. No acute events overnight. Labs noted. Continue tracheostomy and PEG care Decubitus ulcer also healing well. Will continue to turn and position every 2 hours.
[2016-03-18] MEDS: Enoxaparin 40 mg Syringe SC SCH (10:17)
[2016-03-18] MEDS: Phenytoin 100 mg/4 ml Oral Susp UD PEG SCH ×3 (10:19→18:00)
--- NOTE | 2016-03-18 11:58 | CP.PCM.PN ---
<Mariella Wagner - Last Filed: 03/18/16 12:39> Subjective - Date & Time of Evaluation Date of Evaluation: 03/18/16 Time of Evaluation: 09:00 - Subjective Subjective: Medicine Progress Note- 's service: Patient seen and examined at bedside this AM. Patient in no acute distress. is at bedside this AM. Patient with trach collar and PEG in place. No acute events overnight as per nursing. Objective - Vital Signs/Intake and Output Vital Signs (last 24 hours): Temp Pulse Resp BP Pulse Ox 98.1 F 87 20 112/82 100 03/18/16 08:34 03/18/16 08:34 03/18/16 08:34 03/18/16 08:34 03/18/16 08:34 Intake and Output: 03/18/16 03/18/16 06:59 18:59 Intake Total 400 Output Total 700 Balance -300 - Medications Medications: Current Medications Aspirin (Aspirin) 325 mg PO DAILY [facility] Last Admin: 03/18/16 10:18 Dose: 325 mg Clopidogrel Bisulfate (Plavix) 75 mg PO DAILY [facility] Stop: 05/22/16 23:59 Last Admin: 03/18/16 10:18 Dose: 75 mg Enoxaparin Sodium (Lovenox) 40 mg SC DAILY [facility] Last Admin: 03/18/16 10:17 Dose: 40 mg Famotidine (Pepcid) 20 mg PO BID [facility] Last Admin: 03/18/16 10:21 Dose: 20 mg Lisinopril (Zestril) 5 mg PO DAILY [facility] Last Admin: 03/18/16 10:20 Dose: 5 mg Mupirocin (Bactroban Ointment) 0 gm TOP DAILY [facility] Last Admin: 03/18/16 10:26 Dose: 1 applic Oxybutynin Chloride (Ditropan Tab) 5 mg PO TID [facility] Last Admin: 03/18/16 10:18 Dose: 5 mg Phenytoin (Dilantin) 100 mg PEG TID [facility] Last Admin: 03/18/16 10:19 Dose: 100 mg - Labs Labs: 03/17/16 07:44 03/17/16 07:44 PT 10.6 SECONDS (9.7-12.2) 11/24/15 14:10 INR 1.0 11/24/15 14:10 APTT 25 SECONDS (21-34) 11/24/15 14:10 - Constitutional Appears: No Acute Distress - Head Exam Head Exam: NORMAL INSPECTION - Eye Exam Eye Exam: EOMI, Normal appearance - ENT Exam ENT Exam: Mucous Membranes Moist - Neck Exam Additional comments: +trach collar in place - Respiratory Exam Respiratory Exam: Clear to Ausculation Bilateral, NORMAL BREATHING PATTERN - Cardiovascular Exam Cardiovascular Exam: REGULAR RHYTHM, +S1, +S2 - GI/Abdominal Exam GI & Abdominal Exam: Soft. absent: Distended Additional comments: +PEG tube in place - Extremities Exam Extremities Exam: absent: Normal Inspection - Neurological Exam Neurological Exam: Awake - Psychiatric Exam Psychiatric exam: Normal Affect, Normal Mood - Skin Skin Exam: Dry, Normal Color Assessment and Plan - Assessment and Plan (Free Text) Assessment: (1) Anoxic encephalopathy No acute change in mental status PEG tube operational, continue tube feedings Labs on Mondays and . Labwork reviewed today and within normal limits. 12/28: PEG tube placed at bedside by Dr. Chan. Pending placement (2) Respiratory Failure Trach collar in place, thick yellow secretions. WBC 4/25 within normal limits this AM. 02/12 CXR: Linear atelectasis at the bases. Cardiomegaly. ID consult - Dr. Armstrong - help appreciated Sputum culture 12/06 + pseudomonas: probably colonization. No antibiotics per Dr. Armstrong tracheostomy with tube change by Dr. Chan on 11/27/15 (3) UTI WBC 4/25 within normal limits this AM. Yoo in place, no sign of leakage. Afebrile, no WBC count on most recent labwork. (4) CAD (coronary artery disease) Cardiac stents on 06/13/15. Continue Lisinopril 5mg PO daily Continue Plavix 75mg PO daily Continue ASA 325mg PO daily (5) Seizures Continue dilantin 100mg PEG TID SZ percaution, Fall precaution (6) Bed sore continue wound care, sensicare, and medihoney sacral ulcer. Stage II 0.5cm x 1.5cm. Healed. Continue repositioning of patient q2H. dolphin mattress. Heel air boots. (7) Prophylactic measure Lovenox 40 SC daily Pepcid 20 mg PO BID [facility] <Donnell Ying - Last Filed: 03/18/16 15:58> Objective - Vital Signs/Intake and Output Vital Signs (last 24 hours): Temp Pulse Resp BP Pulse Ox 98.1 F 87 20 112/82 100 03/18/16 08:34 03/18/16 08:34 03/18/16 08:34 03/18/16 08:34 03/18/16 08:34 Intake and Output: 03/18/16 03/18/16 06:59 18:59 Intake Total 400 Output Total 700 251 Balance -300 -251 - Medications Medications: Current Medications Aspirin (Aspirin) 325 mg PO DAILY [facility] Last Admin: 03/18/16 10:18 Dose: 325 mg Clopidogrel Bisulfate (Plavix) 75 mg PO DAILY [facility] Stop: 05/22/16 23:59 Last Admin: 03/18/16 10:18 Dose: 75 mg Enoxaparin Sodium (Lovenox) 40 mg SC DAILY [facility] Last Admin: 03/18/16 10:17 Dose: 40 mg Famotidine (Pepcid) 20 mg PO BID [facility] Last Admin: 03/18/16 10:21 Dose: 20 mg Lisinopril (Zestril) 5 mg PO DAILY [facility] Last Admin: 03/18/16 10:20 Dose: 5 mg Mupirocin (Bactroban Ointment) 0 gm TOP DAILY [facility] Last Admin: 03/18/16 10:26 Dose: 1 applic Oxybutynin Chloride (Ditropan Tab) 5 mg PO TID [facility] Last Admin: 03/18/16 14:33 Dose: 5 mg Phenytoin (Dilantin) 100 mg PEG TID [facility] Last Admin: 03/18/16 14:33 Dose: 100 mg - Labs Labs: 03/17/16 07:44 03/17/16 07:44 PT 10.6 SECONDS (9.7-12.2) 11/24/15 14:10 INR 1.0 11/24/15 14:10 APTT 25 SECONDS (21-34) 11/24/15 14:10 Attending/Attestation - Attestation I have personally seen and examined this patient.: Yes I have fully participated in the care of the patient.: Yes I have reviewed all pertinent clinical information, including history, physical exam and plan: Yes Notes (Text): 03/18/16 15:46 Patient seen and examined at bedside is present at bedside No change in clinical condition Continue current management. Turn and position the patient every 2 hours Continue trach and PEG care.
[2016-03-19] MEDS: Enoxaparin 40 mg Syringe SC SCH (10:06)
[2016-03-19] MEDS: Phenytoin 100 mg/4 ml Oral Susp UD PEG SCH ×4 (10:11→17:42)
--- NOTE | 2016-03-19 15:22 | CP.PCM.PN ---
<Mariella Wagner - Last Filed: 03/19/16 15:19> Subjective - Date & Time of Evaluation Date of Evaluation: 03/19/16 Time of Evaluation: 08:00 - Subjective Subjective: Medicine Progress Note- Dr. Ying's service: Patient seen and examined at bedside this AM. Patient is non verbal at baseline. Unable to provide ROS. No acute events overnight reported by nursing. Objective - Vital Signs/Intake and Output Vital Signs (last 24 hours): Temp Pulse Resp BP Pulse Ox 99.1 F 77 20 125/81 99 03/19/16 09:05 03/19/16 09:05 03/19/16 09:05 03/19/16 09:05 03/19/16 09:05 Intake and Output: 03/19/16 03/19/16 06:59 18:59 Intake Total 800 100 Output Total 1300 440 Balance -500 -340 - Medications Medications: Current Medications Aspirin (Aspirin) 325 mg PO DAILY [facility] Last Admin: 03/19/16 10:06 Dose: 325 mg Clopidogrel Bisulfate (Plavix) 75 mg PO DAILY [facility] Stop: 05/22/16 23:59 Last Admin: 03/19/16 10:06 Dose: 75 mg Enoxaparin Sodium (Lovenox) 40 mg SC DAILY [facility] Last Admin: 03/19/16 10:06 Dose: 40 mg Famotidine (Pepcid) 20 mg PO BID [facility] Last Admin: 03/19/16 10:07 Dose: 20 mg Lisinopril (Zestril) 5 mg PO DAILY [facility] Last Admin: 03/19/16 10:07 Dose: 5 mg Mupirocin (Bactroban Ointment) 0 gm TOP DAILY [facility] Last Admin: 03/18/16 10:26 Dose: 1 applic Oxybutynin Chloride (Ditropan Tab) 5 mg PO TID [facility] Last Admin: 03/19/16 14:39 Dose: 5 mg Phenytoin (Dilantin) 100 mg PEG TID [facility] Last Admin: 03/19/16 14:39 Dose: 100 mg - Labs Labs: 03/17/16 07:44 03/17/16 07:44 PT 10.6 SECONDS (9.7-12.2) 11/24/15 14:10 INR 1.0 11/24/15 14:10 APTT 25 SECONDS (21-34) 11/24/15 14:10 - Constitutional Appears: No Acute Distress - Head Exam Head Exam: NORMAL INSPECTION, NORMOCEPHALIC - Eye Exam Eye Exam: EOMI, Normal appearance - ENT Exam ENT Exam: Mucous Membranes Moist - Neck Exam Neck Exam: Normal Inspection Additional comments: +trach collar - Respiratory Exam Respiratory Exam: Clear to Ausculation Bilateral, NORMAL BREATHING PATTERN - Cardiovascular Exam Cardiovascular Exam: REGULAR RHYTHM, +S1, +S2 - GI/Abdominal Exam GI & Abdominal Exam: Soft. absent: Distended, Tenderness Additional comments: +PEG tube - Back Exam Back Exam: NORMAL INSPECTION - Neurological Exam Neurological Exam: Altered, Awake - Skin Skin Exam: Dry, Normal Color, Warm Assessment and Plan - Assessment and Plan (Free Text) Assessment: (1) Anoxic encephalopathy No acute change in mental status PEG tube operational, continue tube feedings Labs on Mondays and . Lab work reviewed today and within normal limits. 12/28: PEG tube placed at bedside by Dr. Chan. Pending placement (2) Respiratory Failure Trach collar in place, thick yellow secretions. WBC 4/25 within normal limits. 02/12 CXR: Linear atelectasis at the bases. Cardiomegaly. ID consult - Dr. Armstrong - help appreciated Sputum culture 12/06 + pseudomonas: probably colonization. No antibiotics per Dr. Armstrong tracheostomy with tube change by Dr. Chan on 11/27/15 (3) UTI WBC 4/25 within normal limits. Yoo in place, no sign of leakage. Afebrile, no WBC count on most recent labwork. (4) CAD (coronary artery disease) Cardiac stents on 06/13/15. Continue Lisinopril 5mg PO daily Continue Plavix 75mg PO daily Continue ASA 325mg PO daily (5) Seizures Continue dilantin 100mg PEG TID SZ percaution, Fall precaution (6) Bed sore continue wound care, sensicare, and medihoney sacral ulcer. Stage II 0.5cm x 1.5cm. Healed. Continue repositioning of patient q2H. dolphin mattress. Heel air boots. (7) Prophylactic measure Lovenox 40 SC daily Pepcid 20 mg PO BID [facility] <Donnell Ying - Last Filed: 03/19/16 16:21> Objective - Vital Signs/Intake and Output Vital Signs (last 24 hours): Temp Pulse Resp BP Pulse Ox 99.1 F 77 20 125/81 99 03/19/16 09:05 03/19/16 09:05 03/19/16 09:05 03/19/16 09:05 03/19/16 09:05 Intake and Output: 03/19/16 03/19/16 06:59 18:59 Intake Total 800 100 Output Total 1300 440 Balance -500 -340 - Medications Medications: Current Medications Aspirin (Aspirin) 325 mg PO DAILY [facility] Last Admin: 03/19/16 10:06 Dose: 325 mg Clopidogrel Bisulfate (Plavix) 75 mg PO DAILY [facility] Stop: 05/22/16 23:59 Last Admin: 03/19/16 10:06 Dose: 75 mg Enoxaparin Sodium (Lovenox) 40 mg SC DAILY [facility] Last Admin: 03/19/16 10:06 Dose: 40 mg Famotidine (Pepcid) 20 mg PO BID [facility] Last Admin: 03/19/16 10:07 Dose: 20 mg Lisinopril (Zestril) 5 mg PO DAILY [facility] Last Admin: 03/19/16 10:07 Dose: 5 mg Mupirocin (Bactroban Ointment) 0 gm TOP DAILY [facility] Last Admin: 03/18/16 10:26 Dose: 1 applic Oxybutynin Chloride (Ditropan Tab) 5 mg PO TID [facility] Last Admin: 03/19/16 14:39 Dose: 5 mg Phenytoin (Dilantin) 100 mg PEG TID [facility] Last Admin: 03/19/16 14:39 Dose: 100 mg - Labs Labs: 03/17/16 07:44 03/17/16 07:44 PT 10.6 SECONDS (9.7-12.2) 11/24/15 14:10 INR 1.0 11/24/15 14:10 APTT 25 SECONDS (21-34) 11/24/15 14:10 Attending/Attestation - Attestation I have personally seen and examined this patient.: Yes I have fully participated in the care of the patient.: Yes I have reviewed all pertinent clinical information, including history, physical exam and plan: Yes Notes (Text): 03/19/16 16:19 Patient seen and examined at bedside No change in clinical condition Whole body examined Sacral decubitus ulcer healed Turn and position every 2 hours
[2016-03-20 08:10] LABS: BASO % 0.2 % (0.0-2.0); EOS # 0.7 K/uL (0.0-0.7); EOS % 6.4 % (0.0-4.0); HEMOGLOBIN 12.9 g/dL (12.0-18.0); LYMPH % 18.1 % (20.0-40.0); MEAN CELL VOLUME 92.5 fL (80.0-94.0); MEAN CORPUSCULAR HEMOGLOBIN 30.6 pg (27.0-31.0); MEAN CORPUSCULAR HGB CONC 33.1 g/dL (33.0-37.0); MEAN PLATELET VOLUME 8.4 fL (7.2-11.7); MONO # 1.3 K/uL (0.0-0.8); MONO % 11.9 % (0.0-10.0); NEUT # 7.2 K/uL (1.8-7.0); NEUT % 63.4 % (50.0-75.0); RBC 4.21 Mil/uL (4.40-5.90); RED CELL DISTRIBUTION WIDTH 14.6 % (11.5-14.5); WHITE BLOOD COUNT 11.3 K/uL (4.8-10.8)
[2016-03-20 08:18] LABS: ALBUMIN 3.7 g/dL (3.5-5.0)
[2016-03-20 08:21] LABS: ALB/GLOB RATIO 0.9 (1.0-2.1); AST/SGOT 40 U/L (17-59); BLOOD UREA NITROGEN 17 mg/dL (9-20); GFR NON-AFRICAN AMERICAN > 60
[2016-03-20 08:22] LABS: ALT/SGPT 51 U/L (21-72)
[2016-03-20] MEDS: Enoxaparin 40 mg Syringe SC SCH (09:20)
[2016-03-20] MEDS: Phenytoin 100 mg/4 ml Oral Susp UD PEG SCH ×3 (09:22→17:57)
--- NOTE | 2016-03-20 15:11 | CP.PCM.PN ---
<Mariella Wagner - Last Filed: 03/20/16 15:07> Subjective - Date & Time of Evaluation Date of Evaluation: 03/20/16 Time of Evaluation: 09:08 - Subjective Subjective: Medicine Progress Note- Dr. Ying's service: Patient seen and examined at bedside this morning. Patient in no acute distress. PEG, trach collar in place. ROS unobtainable since patient is nonverbal at baseline. Mental status unchanged. No acute events overnight as per nursing. Objective - Vital Signs/Intake and Output Vital Signs (last 24 hours): Temp Pulse Resp BP Pulse Ox 98.1 F 86 20 139/85 100 03/20/16 08:00 03/20/16 08:00 03/20/16 08:00 03/20/16 08:00 03/20/16 08:00 Intake and Output: 03/20/16 03/20/16 06:59 18:59 Intake Total 1450 Output Total 1650 1000 Balance -200 -1000 - Medications Medications: Current Medications Aspirin (Aspirin) 325 mg PO DAILY [facility] Last Admin: 03/20/16 09:21 Dose: 325 mg Clopidogrel Bisulfate (Plavix) 75 mg PO DAILY [facility] Stop: 05/22/16 23:59 Last Admin: 03/20/16 09:21 Dose: 75 mg Enoxaparin Sodium (Lovenox) 40 mg SC DAILY [facility] Last Admin: 03/20/16 09:20 Dose: 40 mg Famotidine (Pepcid) 20 mg PO BID [facility] Last Admin: 03/20/16 09:21 Dose: 20 mg Lisinopril (Zestril) 5 mg PO DAILY [facility] Last Admin: 03/20/16 09:20 Dose: 5 mg Mupirocin (Bactroban Ointment) 0 gm TOP DAILY [facility] Last Admin: 03/20/16 09:25 Dose: 1 applic Oxybutynin Chloride (Ditropan Tab) 5 mg PO TID [facility] Last Admin: 03/20/16 13:12 Dose: 5 mg Phenytoin (Dilantin) 100 mg PEG TID [facility] Last Admin: 03/20/16 13:12 Dose: 100 mg - Labs Labs: 03/20/16 07:59 03/20/16 07:59 PT 10.6 SECONDS (9.7-12.2) 01/02/16 14:10 INR 1.0 11/24/15 14:10 APTT 25 SECONDS (21-34) 11/24/15 14:10 - Constitutional Appears: No Acute Distress - Head Exam Head Exam: NORMOCEPHALIC - Eye Exam Eye Exam: Normal appearance - ENT Exam ENT Exam: Mucous Membranes Moist - Neck Exam Neck Exam: Full ROM - Respiratory Exam Respiratory Exam: Clear to Ausculation Bilateral, NORMAL BREATHING PATTERN - Cardiovascular Exam Cardiovascular Exam: REGULAR RHYTHM, +S1, +S2 - GI/Abdominal Exam GI & Abdominal Exam: Soft, Normal Bowel Sounds Additional comments: +PEG tube in place - Extremities Exam Extremities Exam: absent: Full ROM Additional comments: +air boots in place. - Neurological Exam Neurological Exam: Altered, Awake - Skin Skin Exam: Normal Color, Warm Assessment and Plan - Assessment and Plan (Free Text) Assessment: (1) Anoxic encephalopathy No acute change in mental status PEG tube operational, continue tube feedings Labs on Mondays and . Lab work reviewed today and within normal limits. 12/28: PEG tube placed at bedside by Dr. Chan. Pending placement (2) Respiratory Failure Trach collar in place, thick yellow secretions. WBC 4/ within normal limits. 02/12 CXR: Linear atelectasis at the bases. Cardiomegaly. ID consult - Dr. Armstrong - help appreciated Sputum culture 12/06 + pseudomonas: probably colonization. No antibiotics per Dr. Armstrong tracheostomy with tube change by Dr. Chan on 11/27/15 (3) UTI WBC 4/27 within normal limits. Yoo in place, no sign of leakage. Afebrile, no WBC count on most recent labwork. (4) CAD (coronary artery disease) Cardiac stents on 06/13/15. Continue Lisinopril 5mg PO daily Continue Plavix 75mg PO daily Continue ASA 325mg PO daily (5) Seizures Continue dilantin 100mg PEG TID SZ percaution, Fall precaution (6) Bed sore continue wound care, sensicare, and medihoney sacral ulcer. Stage II 0.5cm x 1.5cm. Healed. Continue repositioning of patient q2H. dolphin mattress. Heel air boots. (7) Prophylactic measure Lovenox 40 SC daily Pepcid 20 mg PO BID [facility] <Donnell Ying - Last Filed: 03/20/16 15:23> Objective - Vital Signs/Intake and Output Vital Signs (last 24 hours): Temp Pulse Resp BP Pulse Ox 98.1 F 86 20 139/85 100 03/20/16 08:00 03/20/16 08:00 03/20/16 08:00 03/20/16 08:00 03/20/16 08:00 Intake and Output: 03/20/16 03/20/16 06:59 18:59 Intake Total 1450 Output Total 1650 1000 Balance -200 -1000 - Medications Medications: Current Medications Aspirin (Aspirin) 325 mg PO DAILY [facility] Last Admin: 03/20/16 09:21 Dose: 325 mg Clopidogrel Bisulfate (Plavix) 75 mg PO DAILY [facility] Stop: 05/22/16 23:59 Last Admin: 03/20/16 09:21 Dose: 75 mg Enoxaparin Sodium (Lovenox) 40 mg SC DAILY [facility] Last Admin: 03/20/16 09:20 Dose: 40 mg Famotidine (Pepcid) 20 mg PO BID [facility] Last Admin: 03/20/16 09:21 Dose: 20 mg Lisinopril (Zestril) 5 mg PO DAILY [facility] Last Admin: 03/20/16 09:20 Dose: 5 mg Mupirocin (Bactroban Ointment) 0 gm TOP DAILY [facility] Last Admin: 03/20/16 09:25 Dose: 1 applic Oxybutynin Chloride (Ditropan Tab) 5 mg PO TID [facility] Last Admin: 03/20/16 13:12 Dose: 5 mg Phenytoin (Dilantin) 100 mg PEG TID [facility] Last Admin: 03/20/16 13:12 Dose: 100 mg - Labs Labs: 03/20/16 07:59 03/20/16 07:59 PT 10.6 SECONDS (9.7-12.2) 11/24/15 14:10 INR 1.0 11/24/15 14:10 APTT 25 SECONDS (21-34) 11/24/15 14:10 Attending/Attestation - Attestation I have personally seen and examined this patient.: Yes I have fully participated in the care of the patient.: Yes I have reviewed all pertinent clinical information, including history, physical exam and plan: Yes Notes (Text): 04/28/16 15:22 Patient seen and examined at bedside No change in clinical condition No acute events overnight Turn and position every 2 hours Trach and PEG care
[2016-03-21] MEDS: Enoxaparin 40 mg Syringe SC SCH ×2 (10:44→12:44)
[2016-03-21] MEDS: Phenytoin 100 mg/4 ml Oral Susp UD PEG SCH ×3 (12:40→18:29)
--- NOTE | 2016-03-21 16:10 | CP.PCM.PN ---
<Mariella Wagner - Last Filed: 03/21/16 16:05> Subjective - Date & Time of Evaluation Date of Evaluation: 03/21/16 Time of Evaluation: 09:00 - Subjective Subjective: Medicine Progress Note- Dr. Ying's service: Patient seen and examined at bedside this morning. Patient with no acute events overnight. PEG tube, Trach collar in place. Yoo in place with cherie colored urine. ROS unobtainable since patient is non verbal. No mental status changes. Objective - Vital Signs/Intake and Output Vital Signs (last 24 hours): Temp Pulse Resp BP Pulse Ox 98.4 F 82 20 127/88 100 03/21/16 08:16 03/21/16 08:16 03/21/16 08:16 03/21/16 08:16 03/21/16 08:16 Intake and Output: 03/21/16 03/21/16 06:59 18:59 Intake Total 650 550 Output Total 600 380 Balance 50 170 - Medications Medications: Current Medications Aspirin (Aspirin) 325 mg PO DAILY [facility] Last Admin: 03/21/16 12:39 Dose: Not Given Clopidogrel Bisulfate (Plavix) 75 mg PO DAILY [facility] Stop: 05/22/16 23:59 Last Admin: 03/21/16 12:42 Dose: Not Given Enoxaparin Sodium (Lovenox) 40 mg SC DAILY [facility] Last Admin: 03/21/16 12:44 Dose: Not Given Famotidine (Pepcid) 20 mg PO BID [facility] Last Admin: 03/21/16 10:43 Dose: 20 mg Lisinopril (Zestril) 5 mg PO DAILY [facility] Last Admin: 03/21/16 10:42 Dose: 5 mg Mupirocin (Bactroban Ointment) 0 gm TOP DAILY [facility] Last Admin: 03/21/16 09:15 Dose: 1 applic Oxybutynin Chloride (Ditropan Tab) 5 mg PO TID [facility] Last Admin: 03/21/16 13:42 Dose: 5 mg Phenytoin (Dilantin) 100 mg PEG TID [facility] Last Admin: 03/21/16 13:42 Dose: 100 mg - Labs Labs: 03/20/16 07:59 03/20/16 07:59 PT 10.6 SECONDS (9.7-12.2) 11/24/15 14:10 INR 1.0 11/24/15 14:10 APTT 25 SECONDS (21-34) 11/24/15 14:10 - Constitutional Appears: No Acute Distress - Head Exam Head Exam: NORMAL INSPECTION, NORMOCEPHALIC - Eye Exam Eye Exam: Normal appearance - ENT Exam ENT Exam: Mucous Membranes Moist - Neck Exam Neck Exam: Normal Inspection Additional comments: +trach collar - Respiratory Exam Respiratory Exam: Clear to Ausculation Bilateral, NORMAL BREATHING PATTERN - Cardiovascular Exam Cardiovascular Exam: REGULAR RHYTHM, +S1, +S2 - GI/Abdominal Exam GI & Abdominal Exam: Soft. absent: Distended Additional comments: +PEG tube in place - Extremities Exam Extremities Exam: Normal Inspection. absent: Pedal Edema Additional comments: +air boots on - Back Exam Back Exam: NORMAL INSPECTION - Neurological Exam Neurological Exam: Altered, Awake - Skin Skin Exam: Normal Color, Warm Assessment and Plan - Assessment and Plan (Free Text) Assessment: (1) Anoxic encephalopathy No acute change in mental status PEG tube operational, continue tube feedings Labs on Mondays and . Lab work reviewed 03/20/16 and within normal limits. 2: PEG tube placed at bedside by Dr. Chan. Pending placement (2) Respiratory Failure Trach collar in place, thick yellow secretions. WBC 03/20 within normal limits. 02/12 CXR: Linear atelectasis at the bases. Cardiomegaly. ID consult - Dr. Armstrong - help appreciated Sputum culture 12/06 + pseudomonas: probably colonization. No antibiotics per Dr. Armstrong tracheostomy with tube change by Dr. Chan on 11/27/15 (3) UTI WBC 28 within normal limits. Yoo in place, no sign of leakage. Ditropan 5mg PEG TID for leakage around catheter. Afebrile, no WBC count on most recent labwork. (4) CAD (coronary artery disease) Cardiac stents on 06/13/15. Continue Lisinopril 5mg PO daily Continue Plavix 75mg PO daily Continue ASA 325mg PO daily (5) Seizures Continue dilantin 100mg PEG TID Seizure precautions. (6) Bed sore Healed. continue wound care, sensicare, and medihoney sacral ulcer. Stage II 0.5cm x 1.5cm- Healed. Continue repositioning of patient q2H. dolphin mattress. Heel air boots. (7) Prophylactic measure Lovenox 40 SC daily Pepcid 20 mg PO BID [facility] <Donnell Ying - Last Filed: 03/21/16 16:42> Objective - Vital Signs/Intake and Output Vital Signs (last 24 hours): Temp Pulse Resp BP Pulse Ox 98.4 F 82 20 127/88 100 03/21/16 08:16 03/21/16 08:16 03/21/16 08:16 03/21/16 08:16 03/21/16 08:16 Intake and Output: 03/21/16 03/21/16 06:59 18:59 Intake Total 650 550 Output Total 600 380 Balance 50 170 - Medications Medications: Current Medications Aspirin (Aspirin) 325 mg PO DAILY [facility] Last Admin: 03/21/16 12:39 Dose: Not Given Clopidogrel Bisulfate (Plavix) 75 mg PO DAILY [facility] Stop: 05/22/16 23:59 Last Admin: 03/21/16 12:42 Dose: Not Given Enoxaparin Sodium (Lovenox) 40 mg SC DAILY [facility] Last Admin: 03/21/16 12:44 Dose: Not Given Famotidine (Pepcid) 20 mg PO BID [facility] Last Admin: 03/21/16 10:43 Dose: 20 mg Lisinopril (Zestril) 5 mg PO DAILY [facility] Last Admin: 03/21/16 10:42 Dose: 5 mg Mupirocin (Bactroban Ointment) 0 gm TOP DAILY [facility] Last Admin: 03/21/16 09:15 Dose: 1 applic Oxybutynin Chloride (Ditropan Tab) 5 mg PO TID [facility] Last Admin: 03/21/16 13:42 Dose: 5 mg Phenytoin (Dilantin) 100 mg PEG TID [facility] Last Admin: 03/21/16 13:42 Dose: 100 mg - Labs Labs: 03/20/16 07:59 03/20/16 07:59 PT 10.6 SECONDS (9.7-12.2) 11/24/15 14:10 INR 1.0 11/24/15 14:10 APTT 25 SECONDS (21-34) 11/24/15 14:10 Attending/Attestation - Attestation I have personally seen and examined this patient.: Yes I have fully participated in the care of the patient.: Yes I have reviewed all pertinent clinical information, including history, physical exam and plan: Yes Notes (Text): 03/21/16 16:39 Continue current management Turn and position every 2 hours Trach and PEG care
--- NOTE | 2016-03-22 00:51 | CP.PCM.PN ---
"<Howard Lopez - Last Filed: 03/22/16 04:12> Subjective - Date & Time of Evaluation Date of Evaluation: 03/22/16 Time of Evaluation: 00:51 - Subjective Subjective: PGY1 Medicine Progress Note | Dr. Demetrice Ying's Service Patient seen and examined at bedside. At the time of exam, patient was in bed in NAD with trach collar, PEG tube, and baker in place. No acute change in clinical status. ROS unobtainable as patient is non-conversant. Objective - Vital Signs/Intake and Output Vital Signs (last 24 hours): Temp Pulse Resp BP Pulse Ox 98.1 F 99 H 20 125/74 98 03/21/16 23:23 03/21/16 23:23 03/21/16 23:23 03/21/16 23:23 03/21/16 23:23 Intake and Output: 03/21/16 03/22/16 18:59 06:59 Intake Total 550 550 Output Total 380 1000 Balance 170 -450 - Medications Medications: Current Medications Aspirin (Aspirin) 325 mg PO DAILY [facility] Last Admin: 03/21/16 12:39 Dose: Not Given Clopidogrel Bisulfate (Plavix) 75 mg PO DAILY [facility] Stop: 05/22/16 23:59 Last Admin: 03/21/16 12:42 Dose: Not Given Enoxaparin Sodium (Lovenox) 40 mg SC DAILY [facility] Last Admin: 03/21/16 12:44 Dose: Not Given Famotidine (Pepcid) 20 mg PO BID [facility] Last Admin: 03/21/16 18:29 Dose: 20 mg Lisinopril (Zestril) 5 mg PO DAILY [facility] Last Admin: 03/21/16 10:42 Dose: 5 mg Mupirocin (Bactroban Ointment) 0 gm TOP DAILY [facility] Last Admin: 03/21/16 09:15 Dose: 1 applic Oxybutynin Chloride (Ditropan Tab) 5 mg PO TID [facility] Last Admin: 03/21/16 18:29 Dose: 5 mg Phenytoin (Dilantin) 100 mg PEG TID [facility] Last Admin: 03/21/16 18:29 Dose: 100 mg - Labs Labs: 03/20/16 07:59 03/20/16 07:59 PT 10.6 SECONDS (9.7-12.2) 11/24/15 14:10 INR 1.0 11/24/15 14:10 APTT 25 SECONDS (21-34) 11/24/15 14:10 - Neck Exam Additional comments: Trach collar in place, Dressings are clean and dry, no erythema appreciated. - Additional Findings Additional findings: - Constitutional Appears: No Acute Distress - Head Exam Head Exam: ATRAUMATIC, NORMOCEPHALIC - Eye Exam Eye Exam: Normal appearance - ENT Exam ENT Exam: Mucous Membranes Moist - Neck Exam Neck Exam: Normal Inspection Additional comments: trach collar in place, no erythema appreciated, no blood appreciated - Respiratory Exam Respiratory Exam: Clear to Ausculation Bilateral, NORMAL BREATHING PATTERN - Cardiovascular Exam Cardiovascular Exam: REGULAR RHYTHM, +S1, +S2 - GI/Abdominal Exam GI & Abdominal Exam: Soft. absent: Distended Additional comments: PEG tube in place, no erythema appreciated, tube feeding running at 50cc/hr - Extremities Exam Extremities Exam: Normal Inspection. absent: Pedal Edema Additional comments: heel air boots on - Back Exam Back Exam: NORMAL INSPECTION - Neurological Exam Neurological Exam: Altered - Skin Skin Exam: Normal Color, Warm Assessment and Plan - Assessment and Plan (Free Text) Assessment: (1) Anoxic encephalopathy No acute change in mental status PEG tube operational, continue tube feedings @ 50cc/hr Labs on Mondays and . Lab work reviewed 03/20/16 and within normal limits. 12/28: PEG tube placed at bedside by Dr. Chan. Pending placement (2) Respiratory Failure Trach collar in place WBC 4/28 within normal limits. 02/12 CXR: Linear atelectasis at the bases. Cardiomegaly. ID consult - Dr. Armstrong - help appreciated Sputum culture 12/06 + pseudomonas: probably colonization. No antibiotics per Dr. Armstrong tracheostomy with tube change by Dr. Chan on 11/27/15 (3) UTI WBC /28 within normal limits. Baker in place, no sign of leakage. Ditropan 5mg PEG TID for leakage around catheter. Afebrile, no WBC count on most recent labwork. (4) CAD (coronary artery disease) Cardiac stents on 06/13/15. Continue Lisinopril 5mg PO daily Continue Plavix 75mg PO daily Continue ASA 325mg PO daily (5) Seizures Continue dilantin 100mg PEG TID Seizure precautions. (6) Bed sore Healed. continue wound care, sensicare, and medihoney sacral ulcer. Stage II 0.5cm x 1.5cm- Healed. Continue repositioning of patient q2H. dolphin mattress. Heel air boots. (7) Prophylactic measure Lovenox 40 SC daily Pepcid 20 mg PO BID [facility] <Donnell Ying - Last Filed: 03/22/16 16:26> Objective - Vital Signs/Intake and Output Vital Signs (last 24 hours): Temp Pulse Resp BP Pulse Ox 97.9 F 76 20 114/78 99 03/22/16 16:14 03/22/16 16:14 03/22/16 16:14 03/22/16 16:14 03/22/16 16:14 Intake and Output: 03/22/16 03/22/16 06:59 18:59 Intake Total 950 850 Output Total 1800 500 Balance -850 350 - Medications Medications: Current Medications Aspirin (Aspirin) 325 mg PO DAILY [facility] Last Admin: 03/22/16 10:43 Dose: 325 mg Clopidogrel Bisulfate (Plavix) 75 mg PO DAILY [facility] Stop: 05/22/16 23:59 Last Admin: 03/22/16 10:43 Dose: 75 mg Enoxaparin Sodium (Lovenox) 40 mg SC DAILY [facility] Last Admin: 03/22/16 10:43 Dose: 40 mg Famotidine (Pepcid) 20 mg PO BID [facility] Last Admin: 03/22/16 10:43 Dose: 20 mg Lisinopril (Zestril) 5 mg PO DAILY [facility] Last Admin: 03/22/16 10:43 Dose: 5 mg Mupirocin (Bactroban Ointment) 0 gm TOP DAILY [facility] Last Admin: 03/22/16 10:43 Dose: 1 applic Oxybutynin Chloride (Ditropan Tab) 5 mg PO TID [facility] Last Admin: 03/22/16 14:09 Dose: 5 mg Phenytoin (Dilantin) 100 mg PEG TID [facility] Last Admin: 03/22/16 14:09 Dose: 100 mg - Labs Labs: 03/20/16 07:59 03/20/16 07:59 PT 10.6 SECONDS (9.7-12.2) 11/24/15 14:10 INR 1.0 11/24/15 14:10 APTT 25 SECONDS (21-34) 11/24/15 14:10 Attending/Attestation - Attestation I have personally seen and examined this patient.: Yes I have fully participated in the care of the patient.: Yes I have reviewed all pertinent clinical information, including history, physical exam and plan: Yes Notes (Text): 03/22/16 16:25 Patient seen and examined at bedside. No change in clinical condition. Continue current management. Turn and position every 2 hours. Continue trach and PEG care. Frequent suctioning. Discussed with nursing staff."
[2016-03-22] MEDS: Phenytoin 100 mg/4 ml Oral Susp UD PEG SCH ×3 (10:43→18:13)
[2016-03-22] MEDS: Enoxaparin 40 mg Syringe SC SCH (10:43)
--- NOTE | 2016-03-23 01:20 | CP.PCM.PN ---
"<Howard Lopez - Last Filed: 03/23/16 08:18> Subjective - Date & Time of Evaluation Date of Evaluation: 03/23/16 Time of Evaluation: 01:20 - Subjective Subjective: PGY1 Medicine Progress Note | Dr. Demetrice Ying's Service Patient seen and examined at bedside. At the time of exam, patient was awake in bed in NAD with trach collar, PEG tube, and baker in place and with no change in clinical status. ROS unobtainable as patient is non-conversant. Objective - Vital Signs/Intake and Output Vital Signs (last 24 hours): Temp Pulse Resp BP Pulse Ox 98.3 F 76 20 106/75 99 03/23/16 00:07 03/23/16 00:07 03/23/16 00:07 03/23/16 00:07 03/23/16 00:07 Intake and Output: 03/22/16 03/23/16 18:59 06:59 Intake Total 850 850 Output Total 500 200 Balance 350 650 - Medications Medications: Current Medications Aspirin (Aspirin) 325 mg PO DAILY [facility] Last Admin: 03/22/16 10:43 Dose: 325 mg Clopidogrel Bisulfate (Plavix) 75 mg PO DAILY [facility] Stop: 05/22/16 23:59 Last Admin: 03/22/16 10:43 Dose: 75 mg Enoxaparin Sodium (Lovenox) 40 mg SC DAILY [facility] Last Admin: 03/22/16 10:43 Dose: 40 mg Famotidine (Pepcid) 20 mg PO BID [facility] Last Admin: 03/22/16 18:13 Dose: 20 mg Lisinopril (Zestril) 5 mg PO DAILY [facility] Last Admin: 03/22/16 10:43 Dose: 5 mg Mupirocin (Bactroban Ointment) 0 gm TOP DAILY [facility] Last Admin: 03/22/16 10:43 Dose: 1 applic Oxybutynin Chloride (Ditropan Tab) 5 mg PO TID [facility] Last Admin: 03/22/16 18:13 Dose: 5 mg Phenytoin (Dilantin) 100 mg PEG TID [facility] Last Admin: 03/22/16 18:13 Dose: 100 mg - Labs Labs: 03/20/16 07:59 03/20/16 07:59 PT 10.6 SECONDS (9.7-12.2) 11/24/15 14:10 INR 1.0 11/24/15 14:10 APTT 25 SECONDS (21-34) 11/24/15 14:10 - Constitutional Appears: No Acute Distress - Head Exam Head Exam: ATRAUMATIC, NORMOCEPHALIC - Eye Exam Eye Exam: Normal appearance - ENT Exam ENT Exam: Mucous Membranes Moist - Neck Exam Additional comments: Trach collar in place, no erythema/swelling/blood appreciated. - Respiratory Exam Respiratory Exam: Clear to Ausculation Bilateral, NORMAL BREATHING PATTERN - Cardiovascular Exam Cardiovascular Exam: REGULAR RHYTHM, +S1, +S2. absent: Gallop, Rubs, Murmur - GI/Abdominal Exam GI & Abdominal Exam: Soft. absent: Distended Additional comments: PEG tube in place, running at 50cc/hr - Extremities Exam Additional comments: heel air boots in place - Neurological Exam Neurological Exam: Altered, Awake - Skin Skin Exam: Dry, Warm Assessment and Plan - Assessment and Plan (Free Text) Assessment: (1) Anoxic encephalopathy No acute change in mental status PEG tube operational, continue tube feedings @ 50cc/hr Labs on Mondays and . Lab work reviewed 03/20/16 and within normal limits. 12/28: PEG tube placed at bedside by Dr. Chan. Pending placement (2) Respiratory Failure Trach collar in place WBC 03/20 within normal limits. 02/12 CXR: Linear atelectasis at the bases. Cardiomegaly. ID consult - Dr. Armstrong - help appreciated Sputum culture 12/06 + pseudomonas: probably colonization. No antibiotics per Dr. Armstrong tracheostomy with tube change by Dr. Chan on 11/27/15 (3) UTI WBC 03/20 within normal limits. Baker in place, no sign of leakage. Ditropan 5mg PEG TID for leakage around catheter. Afebrile, no WBC count on most recent labwork. (4) CAD (coronary artery disease) Cardiac stents on 06/13/15. Continue Lisinopril 5mg PO daily Continue Plavix 75mg PO daily Continue ASA 325mg PO daily (5) Seizures Continue dilantin 100mg PEG TID Seizure precautions. (6) Bed sore Healed. continue wound care, sensicare, and medihoney sacral ulcer. Stage II 0.5cm x 1.5cm- Healed. Continue repositioning of patient q2H. dolphin mattress. Heel air boots. (7) Prophylactic measure Lovenox 40 SC daily Pepcid 20 mg PO BID [facility] <Donnell Ying M - Last Filed: 03/23/16 15:44> Objective - Vital Signs/Intake and Output Vital Signs (last 24 hours): Temp Pulse Resp BP Pulse Ox 97.6 F 86 18 128/89 99 03/23/16 08:22 03/23/16 13:39 03/23/16 08:22 03/23/16 08:22 03/23/16 08:22 Intake and Output: 03/23/16 03/23/16 06:59 18:59 Intake Total 1250 550 Output Total 600 Balance 650 550 - Medications Medications: Current Medications Aspirin (Aspirin) 325 mg PO DAILY [facility] Last Admin: 03/23/16 11:03 Dose: 325 mg Clopidogrel Bisulfate (Plavix) 75 mg PO DAILY [facility] Stop: 05/22/16 23:59 Last Admin: 03/23/16 11:04 Dose: 75 mg Enoxaparin Sodium (Lovenox) 40 mg SC DAILY [facility] Last Admin: 03/23/16 11:04 Dose: 40 mg Famotidine (Pepcid) 20 mg PO BID [facility] Last Admin: 03/23/16 11:04 Dose: 20 mg Lisinopril (Zestril) 5 mg PO DAILY [facility] Last Admin: 03/23/16 11:04 Dose: 5 mg Mupirocin (Bactroban Ointment) 0 gm TOP DAILY [facility] Last Admin: 03/23/16 11:05 Dose: 1 applic Oxybutynin Chloride (Ditropan Tab) 5 mg PO TID [facility] Last Admin: 03/23/16 13:08 Dose: 5 mg Phenytoin (Dilantin) 100 mg PEG TID [facility] Last Admin: 03/23/16 13:08 Dose: 100 mg - Labs Labs: 03/20/16 07:59 03/20/16 07:59 PT 10.6 SECONDS (9.7-12.2) 11/24/15 14:10 INR 1.0 11/24/15 14:10 APTT 25 SECONDS (21-34) 11/24/15 14:10 Attending/Attestation - Attestation I have personally seen and examined this patient.: Yes I have fully participated in the care of the patient.: Yes I have reviewed all pertinent clinical information, including history, physical exam and plan: Yes Notes (Text): 03/23/16 15:42 patient seen and examined at bedside No acute changes overnight. Continue current management. Continue trach and PEG care. Frequent suctioning turn and position patient every 2 hours Discussed with nursing staff."
[2016-03-23] MEDS: Phenytoin 100 mg/4 ml Oral Susp UD PEG SCH ×3 (11:03→17:21)
[2016-03-23] MEDS: Enoxaparin 40 mg Syringe SC SCH (11:04)
[2016-03-24 08:13] LABS: ALBUMIN 3.6 g/dL (3.5-5.0)
[2016-03-24 08:16] LABS: ALB/GLOB RATIO 0.9 (1.0-2.1); AST/SGOT 27 U/L (17-59); BLOOD UREA NITROGEN 19 mg/dL (9-20); GFR NON-AFRICAN AMERICAN > 60
[2016-03-24 08:17] LABS: ALT/SGPT 52 U/L (21-72)
--- NOTE | 2016-03-24 08:17 | CP.PCM.PN ---
"Addendum entered and electronically signed by Howard Lopez DO 03/24/16 17:29 : Correction: Dr. Rodrigues's Service Original Note: <Rashel Rodrigues - Last Filed: 03/24/16 17:22> Objective - Vital Signs/Intake and Output Vital Signs (last 24 hours): Temp Pulse Resp BP Pulse Ox 97.8 F 80 20 116/82 99 03/24/16 15:24 03/24/16 15:24 03/24/16 15:24 03/24/16 15:24 03/24/16 15:24 Intake and Output: 03/24/16 03/24/16 06:59 18:59 Intake Total 1250 800 Output Total 900 350 Balance 350 450 - Medications Medications: Current Medications Aspirin (Aspirin) 325 mg PO DAILY [facility] Last Admin: 03/24/16 11:12 Dose: 325 mg Clopidogrel Bisulfate (Plavix) 75 mg PO DAILY [facility] Stop: 05/22/16 23:59 Last Admin: 03/24/16 11:12 Dose: 75 mg Enoxaparin Sodium (Lovenox) 40 mg SC DAILY [facility] Last Admin: 03/24/16 11:12 Dose: 40 mg Famotidine (Pepcid) 20 mg PO BID [facility] Last Admin: 03/24/16 11:12 Dose: 20 mg Lisinopril (Zestril) 5 mg PO DAILY [facility] Last Admin: 03/24/16 11:11 Dose: 5 mg Mupirocin (Bactroban Ointment) 0 gm TOP DAILY [facility] Last Admin: 03/24/16 11:15 Dose: 1 applic Oxybutynin Chloride (Ditropan Tab) 5 mg PO TID [facility] Last Admin: 03/24/16 13:54 Dose: 5 mg Phenytoin (Dilantin) 100 mg PEG TID [facility] Last Admin: 03/24/16 13:53 Dose: 100 mg - Labs Labs: 03/24/16 07:32 03/24/16 07:32 PT 10.6 SECONDS (9.7-12.2) 11/24/15 14:10 INR 1.0 11/24/15 14:10 APTT 25 SECONDS (21-34) 11/24/15 14:10 Attending/Attestation - Attestation I have personally seen and examined this patient.: Yes I have fully participated in the care of the patient.: Yes I have reviewed all pertinent clinical information, including history, physical exam and plan: Yes Notes (Text): 03/24/16 17:23 Patient was seen and examined during the round with the resident. no new events pt has no open wound in sacral area, tolerating TF cont supoortive mx no fever monitor closely <Howard Lopez - Last Filed: 03/24/16 17:28> Subjective - Date & Time of Evaluation Date of Evaluation: 03/24/16 Time of Evaluation: 08:17 - Subjective Subjective: PGY1 Medicine Progress Note | Dr. Demetrice Ying's Service Patient seen and examined at bedside. At the time of exam, patient was awake in bed in NAD with trach collar, PEG tube, and baker in place. There is no acute change in clinical status. ROS unobtainable as patient is non-conversant. Objective - Vital Signs/Intake and Output Vital Signs (last 24 hours): Temp Pulse Resp BP Pulse Ox 98.8 F 87 20 113/77 98 03/23/16 23:49 03/23/16 23:49 03/23/16 23:49 03/23/16 23:49 03/23/16 23:49 Intake and Output: 03/24/16 03/24/16 06:59 18:59 Intake Total 1250 Output Total 900 Balance 350 - Medications Medications: Current Medications Aspirin (Aspirin) 325 mg PO DAILY [facility] Last Admin: 03/23/16 11:03 Dose: 325 mg Clopidogrel Bisulfate (Plavix) 75 mg PO DAILY [facility] Stop: 05/22/16 23:59 Last Admin: 03/23/16 11:04 Dose: 75 mg Enoxaparin Sodium (Lovenox) 40 mg SC DAILY [facility] Last Admin: 03/23/16 11:04 Dose: 40 mg Famotidine (Pepcid) 20 mg PO BID [facility] Last Admin: 03/23/16 17:22 Dose: 20 mg Lisinopril (Zestril) 5 mg PO DAILY [facility] Last Admin: 03/23/16 11:04 Dose: 5 mg Mupirocin (Bactroban Ointment) 0 gm TOP DAILY [facility] Last Admin: 03/23/16 11:05 Dose: 1 applic Oxybutynin Chloride (Ditropan Tab) 5 mg PO TID [facility] Last Admin: 03/23/16 17:21 Dose: 5 mg Phenytoin (Dilantin) 100 mg PEG TID [facility] Last Admin: 03/23/16 17:21 Dose: 100 mg - Labs Labs: 03/20/16 07:59 03/24/16 07:32 PT 10.6 SECONDS (9.7-12.2) 11/24/15 14:10 INR 1.0 11/24/15 14:10 APTT 25 SECONDS (21-34) 11/24/15 14:10 - Additional Findings Additional findings: - Constitutional Appears: No Acute Distress - Head Exam Head Exam: ATRAUMATIC, NORMOCEPHALIC - Eye Exam Eye Exam: Normal appearance - ENT Exam ENT Exam: Mucous Membranes Moist - Neck Exam Additional comments: Trach collar in place, no erythema/swelling/blood appreciated. - Respiratory Exam Respiratory Exam: Clear to Ausculation Bilateral, NORMAL BREATHING PATTERN - Cardiovascular Exam Cardiovascular Exam: REGULAR RHYTHM, +S1, +S2. absent: Gallop, Rubs, Murmur - GI/Abdominal Exam GI & Abdominal Exam: Soft. absent: Distended Additional comments: PEG tube in place, running at 50cc/hr - Extremities Exam Additional comments: heel air boots in place - Back Exam Back Exam: Altered, Awake Additional comments: no open sacral wound - Neurological Exam Neurological Exam: Altered, Awake - Skin Skin Exam: Dry, Warm Assessment and Plan - Assessment and Plan (Free Text) Assessment: (1) Anoxic encephalopathy No acute change in mental status PEG tube operational, continue tube feedings @ 50cc/hr Labs on Mondays and . Lab work reviewed 03/20/16 and within normal limits. 12/28: PEG tube placed at bedside by Dr. Chan. Pending placement (2) Respiratory Failure 03/24/16: WBC 9.0 today. Trach collar in place WBC 03/20 within normal limits. 02/12 CXR: Linear atelectasis at the bases. Cardiomegaly. ID consult - Dr. Armstrong - help appreciated Sputum culture 12/06 + pseudomonas: probably colonization. No antibiotics per Dr. Armstrong tracheostomy with tube change by Dr. Chan on 11/27/15 (3) UTI 03/24/16: WBC 9.0 today WBC 03/20 within normal limits. Baker in place, no sign of leakage. Ditropan 5mg PEG TID for leakage around catheter. Afebrile, no WBC count on most recent labwork. (4) CAD (coronary artery disease) Cardiac stents on 06/13/15. Continue Lisinopril 5mg PO daily Continue Plavix 75mg PO daily Continue ASA 325mg PO daily (5) Seizures Continue dilantin 100mg PEG TID Seizure precautions. (6) Bed sore Healed. continue wound care, sensicare, and medihoney sacral ulcer. Stage II 0.5cm x 1.5cm- Healed. Continue repositioning of patient q2H. dolphin mattress. Heel air boots. (7) Prophylactic measure Lovenox 40 SC daily Pepcid 20 mg PO BID [facility]"
[2016-03-24 08:24] LABS: BASO % 0.4 % (0.0-2.0); EOS # 0.7 K/uL (0.0-0.7); EOS % 7.8 % (0.0-4.0); HEMOGLOBIN 13.5 g/dL (12.0-18.0); LYMPH # 1.8 K/uL (1.0-4.3); LYMPH % 20.2 % (20.0-40.0); MEAN CELL VOLUME 91.8 fL (80.0-94.0); MEAN CORPUSCULAR HEMOGLOBIN 30.9 pg (27.0-31.0); MEAN CORPUSCULAR HGB CONC 33.6 g/dL (33.0-37.0); MEAN PLATELET VOLUME 8.5 fL (7.2-11.7); MONO # 0.9 K/uL (0.0-0.8); MONO % 9.7 % (0.0-10.0); NEUT # 5.6 K/uL (1.8-7.0); NEUT % 61.9 % (50.0-75.0); NRBC % 0.7 % (0.0-2.0); RBC 4.37 Mil/uL (4.40-5.90); RED CELL DISTRIBUTION WIDTH 15.1 % (11.5-14.5)
[2016-03-24] MEDS: Phenytoin 100 mg/4 ml Oral Susp UD PEG SCH ×3 (11:11→17:46)
[2016-03-24] MEDS: Enoxaparin 40 mg Syringe SC SCH (11:12)
--- NOTE | 2016-03-25 07:17 | CP.PCM.PN ---
<Saba Ennis - Last Filed: 03/25/16 16:39> Subjective - Date & Time of Evaluation Date of Evaluation: 03/25/16 Time of Evaluation: 09:30 - Subjective Subjective: Patient seen and examined this morning. Patient awake but nonverbal. Trach collar, PEG tube, and baker in place. No acute changes reported overnight. ROS unobtainable. Per resp therapist present in room, patient saturating >95% on 3L , minimal thin secretions from trach tube. Objective - Vital Signs/Intake and Output Vital Signs (last 24 hours): Temp Pulse Resp BP Pulse Ox 98.7 F 85 20 122/83 98 03/24/16 23:54 03/24/16 23:54 03/24/16 23:54 03/24/16 23:54 03/24/16 23:54 Intake and Output: 03/25/16 03/25/16 06:59 18:59 Intake Total 600 Output Total 400 Balance 200 - Medications Medications: Current Medications Aspirin (Aspirin) 325 mg PO DAILY [facility] Last Admin: 03/24/16 11:12 Dose: 325 mg Clopidogrel Bisulfate (Plavix) 75 mg PO DAILY [facility] Stop: 05/22/16 23:59 Last Admin: 03/24/16 11:12 Dose: 75 mg Enoxaparin Sodium (Lovenox) 40 mg SC DAILY [facility] Last Admin: 03/24/16 11:12 Dose: 40 mg Famotidine (Pepcid) 20 mg PO BID [facility] Last Admin: 03/24/16 17:46 Dose: 20 mg Lisinopril (Zestril) 5 mg PO DAILY [facility] Last Admin: 03/24/16 11:11 Dose: 5 mg Mupirocin (Bactroban Ointment) 0 gm TOP DAILY [facility] Last Admin: 03/24/16 11:15 Dose: 1 applic Oxybutynin Chloride (Ditropan Tab) 5 mg PO TID [facility] Last Admin: 03/24/16 17:46 Dose: 5 mg Phenytoin (Dilantin) 100 mg PEG TID [facility] Last Admin: 03/24/16 17:46 Dose: 100 mg - Labs Labs: 03/24/16 07:32 03/24/16 07:32 PT 10.6 SECONDS (9.7-12.2) 11/24/15 14:10 INR 1.0 11/24/15 14:10 APTT 25 SECONDS (21-34) 11/24/15 14:10 - Constitutional Appears: Chronically Ill - Head Exam Head Exam: NORMOCEPHALIC - Eye Exam Eye Exam: Normal appearance - ENT Exam ENT Exam: Mucous Membranes Dry - Neck Exam Additional comments: Trach collar in place - GI/Abdominal Exam GI & Abdominal Exam: Soft. absent: Distended, Rigid Additional comments: PEG tube in place - Extremities Exam Additional comments: off loading boots bilateral LE - Neurological Exam Neurological Exam: Altered, Awake Assessment and Plan - Assessment and Plan (Free Text) Assessment: (1) Anoxic encephalopathy No acute change in mental status PEG tube operational, continue tube feedings @ 50cc/hr Labs on Mondays and . Lab work reviewed 03/24/16 and within normal limits. PEG tube placed at bedside by Dr. Chan on 11/27/15 Pending placement (2) Respiratory Failure Trach collar in place WBC 5/2 within normal limits. 02/12 CXR: Linear atelectasis at the bases. Cardiomegaly. ID on case - Dr. Armstrong Sputum culture 12/06 + pseudomonas: probably colonization. No antibiotics per Dr. Armstrong tracheostomy with tube change by Dr. Chan on 11/27/15 (3) UTI WBC 5/2 within normal limits, afebrile Baker in place, no sign of leakage. Ditropan 5mg PEG TID for leakage around catheter. (4) CAD (coronary artery disease) Cardiac stents on 06/13/15. Continue Lisinopril 5mg PO daily Continue Plavix 75mg PO daily Continue ASA 325mg PO daily (5) Seizures Continue dilantin 100mg PEG TID Seizure precautions. (6) Bed sore Healed. continue wound care, sensicare, and medihoney sacral ulcer. Stage II 0.5cm x 1.5cm- Healed. Continue repositioning of patient q2H. dolphin mattress. Heel air boots. (7) Prophylactic measure Lovenox 40 SC daily Pepcid 20 mg PO BID [facility] <Rashel Rodrigues - Last Filed: 03/26/16 06:56> Objective - Vital Signs/Intake and Output Vital Signs (last 24 hours): Temp Pulse Resp BP Pulse Ox 98.6 F 85 20 121/84 98 03/25/16 23:45 03/25/16 23:45 03/25/16 23:45 03/25/16 23:45 03/25/16 23:45 Intake and Output: 03/25/16 03/26/16 18:59 06:59 Intake Total 500 1550 Output Total 650 900 Balance -150 650 - Medications Medications: Current Medications Aspirin (Aspirin) 325 mg PO DAILY [facility] Last Admin: 03/25/16 09:19 Dose: 325 mg Clopidogrel Bisulfate (Plavix) 75 mg PO DAILY [facility] Stop: 05/22/16 23:59 Last Admin: 03/25/16 09:20 Dose: 75 mg Enoxaparin Sodium (Lovenox) 40 mg SC DAILY [facility] Last Admin: 03/25/16 09:21 Dose: 40 mg Famotidine (Pepcid) 20 mg PO BID [facility] Last Admin: 03/25/16 17:44 Dose: 20 mg Lisinopril (Zestril) 5 mg PO DAILY [facility] Last Admin: 03/25/16 09:19 Dose: 5 mg Mupirocin (Bactroban Ointment) 0 gm TOP DAILY [facility] Last Admin: 03/25/16 09:29 Dose: 1 applic Oxybutynin Chloride (Ditropan Tab) 5 mg PO TID [facility] Last Admin: 03/25/16 17:44 Dose: 5 mg Phenytoin (Dilantin) 100 mg PEG TID [facility] Last Admin: 03/25/16 17:44 Dose: 100 mg - Labs Labs: 03/24/16 07:32 03/24/16 07:32 PT 10.6 SECONDS (9.7-12.2) 11/24/15 14:10 INR 1.0 11/24/15 14:10 APTT 25 SECONDS (21-34) 11/24/15 14:10 Attending/Attestation - Attestation I have personally seen and examined this patient.: Yes I have fully participated in the care of the patient.: Yes I have reviewed all pertinent clinical information, including history, physical exam and plan: Yes
[2016-03-25] MEDS: Phenytoin 100 mg/4 ml Oral Susp UD PEG SCH ×3 (09:20→17:44)
[2016-03-25] MEDS: Enoxaparin 40 mg Syringe SC SCH (09:21)
--- NOTE | 2016-03-26 07:42 | CP.PCM.PN ---
"<Howard Lopez - Last Filed: 03/26/16 12:10> Subjective - Date & Time of Evaluation Date of Evaluation: 03/26/16 Time of Evaluation: 07:41 - Subjective Subjective: PGY1 Medicine Progress Note | Dr. Rodrigues's Service Patient seen and examined at bedside. At the time of exam, patient was awake in bed in NAD with trach collar, PEG tube, and baker in place. There is no acute change in clinical status. Patient not responding to verbal/tactile/painful stimuli. ROS unobtainable as patient is non-conversant. Objective - Vital Signs/Intake and Output Vital Signs (last 24 hours): Temp Pulse Resp BP Pulse Ox 98.6 F 85 20 121/84 98 03/25/16 23:45 03/25/16 23:45 03/25/16 23:45 03/25/16 23:45 03/25/16 23:45 Intake and Output: 03/26/16 03/26/16 06:59 18:59 Intake Total 1550 Output Total 900 Balance 650 - Medications Medications: Current Medications Aspirin (Aspirin) 325 mg PO DAILY [facility] Last Admin: 03/25/16 09:19 Dose: 325 mg Clopidogrel Bisulfate (Plavix) 75 mg PO DAILY [facility] Stop: 05/22/16 23:59 Last Admin: 03/25/16 09:20 Dose: 75 mg Enoxaparin Sodium (Lovenox) 40 mg SC DAILY [facility] Last Admin: 03/25/16 09:21 Dose: 40 mg Famotidine (Pepcid) 20 mg PO BID [facility] Last Admin: 03/25/16 17:44 Dose: 20 mg Lisinopril (Zestril) 5 mg PO DAILY [facility] Last Admin: 03/25/16 09:19 Dose: 5 mg Mupirocin (Bactroban Ointment) 0 gm TOP DAILY [facility] Last Admin: 03/25/16 09:29 Dose: 1 applic Oxybutynin Chloride (Ditropan Tab) 5 mg PO TID [facility] Last Admin: 03/25/16 17:44 Dose: 5 mg Phenytoin (Dilantin) 100 mg PEG TID [facility] Last Admin: 03/25/16 17:44 Dose: 100 mg - Labs Labs: 03/24/16 07:32 03/24/16 07:32 PT 10.6 SECONDS (9.7-12.2) 11/24/15 14:10 INR 1.0 11/24/15 14:10 APTT 25 SECONDS (21-34) 11/24/15 14:10 - Additional Findings Additional findings: - Constitutional Appears: No Acute Distress - Head Exam Head Exam: ATRAUMATIC, NORMOCEPHALIC - Eye Exam Eye Exam: Normal appearance - ENT Exam ENT Exam: Mucous Membranes Moist - Neck Exam Additional comments: Trach collar in place, no erythema/swelling/blood appreciated. Minimal secretions. - Respiratory Exam Respiratory Exam: Clear to Ausculation Bilateral, NORMAL BREATHING PATTERN - Cardiovascular Exam Cardiovascular Exam: REGULAR RHYTHM, +S1, +S2. absent: Gallop, Rubs, Murmur - GI/Abdominal Exam GI & Abdominal Exam: Soft. absent: Distended Additional comments: PEG tube in place, no erythema/swelling appreciated. PEG tube not running during day - Extremities Exam Additional comments: heel air boots in place - Neurological Exam Neurological Exam: Altered, Awake - Skin Skin Exam: Dry, Warm Assessment and Plan - Assessment and Plan (Free Text) Assessment: (1) Anoxic encephalopathy No acute change in mental status PEG tube operational, continue tube feedings @ 50cc/hr nightly Labs on Mondays and . Lab work reviewed 03/24/16 and within normal limits. PEG tube placed at bedside by Dr. Chan on 11/27/15 Pending placement (2) Respiratory Failure Trach collar in place WBC 5/2 within normal limits. 02/12 CXR: Linear atelectasis at the bases. Cardiomegaly. ID on case - Dr. Armstrong Sputum culture 12/06 + pseudomonas: probably colonization. No antibiotics per Dr. Armstrong tracheostomy with tube change by Dr. Chan on 11/27/15 (3) UTI WBC 5/2 within normal limits, afebrile Baker in place, no sign of leakage. Ditropan 5mg PEG TID for leakage around catheter. (4) CAD (coronary artery disease) Cardiac stents on 06/13/15. Continue Lisinopril 5mg PO daily Continue Plavix 75mg PO daily Continue ASA 325mg PO daily (5) Seizures Continue dilantin 100mg PEG TID Seizure precautions. (6) Bed sore Healed. continue wound care, sensicare, and medihoney sacral ulcer. Stage II 0.5cm x 1.5cm- Healed. Continue repositioning of patient q2H. dolphin mattress. Heel air boots. (7) Prophylactic measure Lovenox 40 SC daily Pepcid 20 mg PO BID [facility] <Rashel Rodrigues - Last Filed: 03/26/16 16:34> Objective - Vital Signs/Intake and Output Vital Signs (last 24 hours): Temp Pulse Resp BP Pulse Ox 97.4 F L 85 20 118/82 96 03/26/16 08:00 03/26/16 08:00 03/26/16 08:00 03/26/16 08:00 03/26/16 08:00 Intake and Output: 03/26/16 03/26/16 06:59 18:59 Intake Total 1550 800 Output Total 900 300 Balance 650 500 - Medications Medications: Current Medications Aspirin (Aspirin) 325 mg PO DAILY [facility] Last Admin: 03/26/16 11:20 Dose: 325 mg Clopidogrel Bisulfate (Plavix) 75 mg PO DAILY [facility] Stop: 05/22/16 23:59 Last Admin: 03/26/16 11:20 Dose: 75 mg Enoxaparin Sodium (Lovenox) 40 mg SC DAILY [facility] Last Admin: 03/26/16 11:21 Dose: 40 mg Famotidine (Pepcid) 20 mg PO BID [facility] Last Admin: 03/26/16 11:21 Dose: 20 mg Lisinopril (Zestril) 5 mg PO DAILY [facility] Last Admin: 03/26/16 11:21 Dose: 5 mg Mupirocin (Bactroban Ointment) 0 gm TOP DAILY [facility] Last Admin: 03/26/16 13:00 Dose: 1 applic Oxybutynin Chloride (Ditropan Tab) 5 mg PO TID [facility] Last Admin: 03/26/16 14:13 Dose: 5 mg Phenytoin (Dilantin) 100 mg PEG TID [facility] Last Admin: 03/26/16 14:13 Dose: 100 mg - Labs Labs: 03/24/16 07:32 03/24/16 07:32 PT 10.6 SECONDS (9.7-12.2) 11/24/15 14:10 INR 1.0 11/24/15 14:10 APTT 25 SECONDS (21-34) 11/24/15 14:10 Attending/Attestation - Attestation I have personally seen and examined this patient.: Yes I have fully participated in the care of the patient.: Yes I have reviewed all pertinent clinical information, including history, physical exam and plan: Yes"
[2016-03-26] MEDS: Phenytoin 100 mg/4 ml Oral Susp UD PEG SCH ×3 (11:19→17:58)
[2016-03-26] MEDS: Enoxaparin 40 mg Syringe SC SCH (11:21)
--- NOTE | 2016-03-27 07:17 | CP.PCM.PN ---
<Saba Ennis - Last Filed: 03/27/16 08:48> Subjective - Date & Time of Evaluation Date of Evaluation: 03/27/16 Time of Evaluation: 08:45 - Subjective Subjective: Patient seen and examined this morning. Patient altered, nonverbal. No response to verbal/tactile/noxious stimuli. Patient with trach collar, PEG tube, and Yoo in place. No significant secretions seen in trach tube. Feeds via PEG running at 50 cc/hr- RN will discontinue them this morning as patient is to receive tube feeds at night. Yoo with adequate clear yellow urine output. No acute overnight events reported. Objective - Vital Signs/Intake and Output Vital Signs (last 24 hours): Temp Pulse Resp BP Pulse Ox 98.1 F 99 H 20 102/70 100 03/27/16 00:55 03/27/16 00:55 03/27/16 00:55 03/27/16 00:55 03/27/16 00:55 Intake and Output: 03/27/16 03/27/16 06:59 18:59 Intake Total 700 Output Total 1400 Balance -700 - Medications Medications: Current Medications Aspirin (Aspirin) 325 mg PO DAILY [facility] Last Admin: 03/26/16 11:20 Dose: 325 mg Clopidogrel Bisulfate (Plavix) 75 mg PO DAILY [facility] Stop: 05/22/16 23:59 Last Admin: 03/26/16 11:20 Dose: 75 mg Enoxaparin Sodium (Lovenox) 40 mg SC DAILY [facility] Last Admin: 03/26/16 11:21 Dose: 40 mg Famotidine (Pepcid) 20 mg PO BID [facility] Last Admin: 03/26/16 17:58 Dose: 20 mg Lisinopril (Zestril) 5 mg PO DAILY [facility] Last Admin: 03/26/16 11:21 Dose: 5 mg Mupirocin (Bactroban Ointment) 0 gm TOP DAILY [facility] Last Admin: 03/26/16 13:00 Dose: 1 applic Oxybutynin Chloride (Ditropan Tab) 5 mg PO TID [facility] Last Admin: 03/26/16 17:58 Dose: 5 mg Phenytoin (Dilantin) 100 mg PEG TID [facility] Last Admin: 03/26/16 17:58 Dose: 100 mg - Labs Labs: 03/24/16 07:32 03/24/16 07:32 PT 10.6 SECONDS (9.7-12.2) 11/24/15 14:10 INR 1.0 11/24/15 14:10 APTT 25 SECONDS (21-34) 11/24/15 14:10 - Constitutional Appears: Chronically Ill - Head Exam Head Exam: NORMOCEPHALIC - Eye Exam Pupil Exam: PERRL - ENT Exam ENT Exam: Mucous Membranes Moist - Neck Exam Additional comments: Trach collar in place with no erythema/swelling/blood. Minimal secretions. - Respiratory Exam Respiratory Exam: Clear to Ausculation Bilateral, NORMAL BREATHING PATTERN. absent: Respiratory Distress Additional comments: pt on ventilator - Cardiovascular Exam Cardiovascular Exam: REGULAR RHYTHM, +S1, +S2 - GI/Abdominal Exam Additional comments: PEG tube in place, covered in dressing, clean and dry, no surrounding erythema/ swelling - Extremities Exam Additional comments: off-loading boots bilateral LE - Neurological Exam Neurological Exam: Altered, Awake Additional comments: nonverbal, does not respond to tactile/verbal stimuli Assessment and Plan - Assessment and Plan (Free Text) Assessment: (1) Anoxic encephalopathy No acute change in mental status PEG tube operational, continue tube feedings @ 50cc/hr nightly Labs on Mondays and . Lab work reviewed 03/24/16 and within normal limits. PEG tube placed at bedside by Dr. Chan on 11/27/15 Pending placement (2) Respiratory Failure Trach collar in place WBC 5/2 within normal limits. 02/12 CXR: Linear atelectasis at the bases. Cardiomegaly. ID on case - Dr. Armstrong Sputum culture 12/06 + pseudomonas: probably colonization. No antibiotics per Dr. Armstrong tracheostomy with tube change by Dr. Chan on 11/27/15 (3) UTI Chronic WBC 5/2 within normal limits, afebrile Yoo in place, no sign of leakage. Ditropan 5mg PEG TID for leakage around catheter. Continue to monitor vital signs and wbc count (4) CAD (coronary artery disease) Cardiac stents on 06/13/15. Continue Lisinopril 5mg PO daily Continue Plavix 75mg PO daily Continue ASA 325mg PO daily (5) Seizures Continue dilantin 100mg PEG TID Seizure precautions. (6) Bed sore Healed. continue wound care as needed, sensicare, and medihoney Sacral ulcer Stage II 0.5cm x 1.5cm- Healed. Continue repositioning of patient q2H. dolphin mattress. Heel air boots. (7) Prophylactic measure Lovenox 40 SC daily Pepcid 20 mg PO BID [facility] <Donavan Hallman - Last Filed: 04/11/16 10:14> Objective - Vital Signs/Intake and Output Vital Signs (last 24 hours): Temp Pulse Resp BP Pulse Ox 98.5 F 90 20 108/71 97 04/11/16 08:00 04/11/16 08:00 04/11/16 08:00 04/11/16 08:00 04/11/16 08:00 Intake and Output: 04/11/16 04/11/16 06:59 18:59 Intake Total 1250 Output Total 750 Balance 500 - Medications Medications: Current Medications Aspirin (Aspirin) 325 mg PEG DAILY [facility] Last Admin: 04/10/16 11:33 Dose: 325 mg Clopidogrel Bisulfate (Plavix) 75 mg PEG DAILY [facility] Last Admin: 04/10/16 11:35 Dose: 75 mg Enoxaparin Sodium (Lovenox) 40 mg SC DAILY [facility] Famotidine (Pepcid) 20 mg PEG BID [facility] Last Admin: 04/10/16 21:11 Dose: 20 mg Lisinopril (Zestril) 5 mg PEG DAILY [facility] Last Admin: 04/10/16 11:35 Dose: 5 mg Mupirocin (Bactroban Ointment) 1 gm TOP DAILY [facility] Last Admin: 04/10/16 11:33 Dose: 1 applic Oxybutynin Chloride (Ditropan Tab) 5 mg PEG TID [facility] Last Admin: 04/10/16 21:12 Dose: 5 mg Phenytoin (Dilantin) 100 mg PEG TID [facility] Last Admin: 04/10/16 21:18 Dose: 100 mg - Labs Labs: 04/08/16 07:45 04/08/16 07:45 PT 10.6 SECONDS (9.7-12.2) 11/24/15 14:10 INR 1.0 11/24/15 14:10 APTT 25 SECONDS (21-34) 11/24/15 14:10 Attending/Attestation - Attestation I have personally seen and examined this patient.: Yes I have fully participated in the care of the patient.: Yes I have reviewed all pertinent clinical information, including history, physical exam and plan: Yes Notes (Text): patient seen and examined with resident agree with resident's evaluation assessment and plan
[2016-03-27 09:41] LABS: BASO % 0.4 % (0.0-2.0); EOS # 0.8 K/uL (0.0-0.7); EOS % 8.6 % (0.0-4.0); HEMOGLOBIN 12.8 g/dL (12.0-18.0); LYMPH % 21.3 % (20.0-40.0); MEAN CELL VOLUME 93.3 fL (80.0-94.0); MEAN CORPUSCULAR HEMOGLOBIN 30.8 pg (27.0-31.0); MEAN PLATELET VOLUME 8.4 fL (7.2-11.7); MONO % 10.7 % (0.0-10.0); NEUT # 5.5 K/uL (1.8-7.0); NRBC % 0.1 % (0.0-2.0); RBC 4.16 Mil/uL (4.40-5.90); RED CELL DISTRIBUTION WIDTH 14.7 % (11.5-14.5); WHITE BLOOD COUNT 9.4 K/uL (4.8-10.8)
[2016-03-27 10:16] LABS: ALBUMIN 3.6 g/dL (3.5-5.0)
[2016-03-27 10:19] LABS: ALB/GLOB RATIO 0.9 (1.0-2.1); ALT/SGPT 62 U/L (21-72); AST/SGOT 26 U/L (17-59); BLOOD UREA NITROGEN 17 mg/dL (9-20); GFR NON-AFRICAN AMERICAN > 60
[2016-03-27] MEDS: Enoxaparin 40 mg Syringe SC SCH (10:32)
[2016-03-27] MEDS: Phenytoin 100 mg/4 ml Oral Susp UD PEG SCH ×3 (10:33→17:18)
[2016-03-28] MEDS: Enoxaparin 40 mg Syringe SC SCH (10:39)
[2016-03-28] MEDS: Phenytoin 100 mg/4 ml Oral Susp UD PEG SCH ×3 (10:40→18:00)
--- NOTE | 2016-03-28 14:33 | CP.PCM.PN ---
<MarcellaPati Fraser - Last Filed: 03/28/16 14:28> Subjective - Date & Time of Evaluation Date of Evaluation: 03/28/16 Time of Evaluation: 10:20 - Subjective Subjective: Patient seen and examined. Patient altered, nonverbal. No response to verbal/ tactile/noxious stimuli. Patient with trach collar, PEG tube, and Yoo in place. Suctioning being completed by RN students, minimal. Yoo with adequate clear yellow urine output. No acute overnight events reported. Objective - Vital Signs/Intake and Output Vital Signs (last 24 hours): Temp Pulse Resp BP Pulse Ox 98.7 F 80 20 91/60 L 98 03/28/16 07:41 03/28/16 07:41 03/28/16 07:41 03/28/16 07:41 03/28/16 07:41 Intake and Output: 03/28/16 03/28/16 06:59 18:59 Intake Total 1550 Output Total 1200 1400 Balance 350 -1400 - Medications Medications: Current Medications Aspirin (Aspirin) 325 mg PO DAILY [facility] Last Admin: 03/28/16 10:40 Dose: 325 mg Clopidogrel Bisulfate (Plavix) 75 mg PO DAILY [facility] Stop: 05/22/16 23:59 Last Admin: 03/28/16 10:40 Dose: 75 mg Enoxaparin Sodium (Lovenox) 40 mg SC DAILY [facility] Last Admin: 03/28/16 10:39 Dose: 40 mg Famotidine (Pepcid) 20 mg PO BID [facility] Last Admin: 03/28/16 10:41 Dose: 20 mg Lisinopril (Zestril) 5 mg PO DAILY [facility] Last Admin: 03/28/16 10:41 Dose: 5 mg Mupirocin (Bactroban Ointment) 0 gm TOP DAILY [facility] Last Admin: 03/28/16 10:00 Dose: 1 applic Oxybutynin Chloride (Ditropan Tab) 5 mg PO TID [facility] Last Admin: 03/28/16 14:23 Dose: 5 mg Phenytoin (Dilantin) 100 mg PEG TID [facility] Last Admin: 03/28/16 14:23 Dose: 100 mg - Labs Labs: 03/27/16 09:20 03/27/16 09:20 PT 10.6 SECONDS (9.7-12.2) 11/24/15 14:10 INR 1.0 01/02/16 14:10 APTT 25 SECONDS (21-34) 11/24/15 14:10 - Constitutional Appears: No Acute Distress - Eye Exam Eye Exam: Normal appearance - ENT Exam ENT Exam: Mucous Membranes Moist - Neck Exam Additional comments: Trach collar in place with no erythema/swelling/blood - Respiratory Exam Respiratory Exam: NORMAL BREATHING PATTERN Additional comments: pt on ventilator - Cardiovascular Exam Cardiovascular Exam: REGULAR RHYTHM - GI/Abdominal Exam GI & Abdominal Exam: Soft. absent: Tenderness Additional comments: PEG tube in place, covered in dressing, clean and dry, no surrounding erythema/ swelling - Neurological Exam Neurological Exam: Alert Additional comments: nonverbal, does not respond to tactile/verbal stimuli - Skin Skin Exam: Dry, Intact, Normal Color Assessment and Plan - Assessment and Plan (Free Text) Assessment: (1) Anoxic encephalopathy No acute change in mental status PEG tube operational, continue tube feedings @ 50cc/hr nightly Labs on Mondays and . Lab work reviewed 03/24/16 and within normal limits. PEG tube placed at bedside by Dr. Chan on 11/27/15 Pending placement (2) Respiratory Failure Trach collar in place WBC 5/2 within normal limits. 02/12 CXR: Linear atelectasis at the bases. Cardiomegaly. ID on case - Dr. Armstrong Sputum culture 12/06 + pseudomonas: probably colonization. No antibiotics per Dr. Armstrong tracheostomy with tube change by Dr. Chan on 11/27/15 (3) UTI Chronic WBC 5/2 within normal limits, afebrile Yoo in place, no sign of leakage. Ditropan 5mg PEG TID for leakage around catheter. Continue to monitor vital signs and wbc count (4) CAD (coronary artery disease) Cardiac stents on 06/13/15. Continue Lisinopril 5mg PO daily Continue Plavix 75mg PO daily Continue ASA 325mg PO daily (5) Seizures Continue dilantin 100mg PEG TID Seizure precautions. (6) Bed sore Healed. continue wound care as needed, sensicare, and medihoney Sacral ulcer Stage II 0.5cm x 1.5cm- Healed. Continue repositioning of patient q2H. dolphin mattress. Heel air boots. (7) Prophylactic measure Lovenox 40 SC daily Pepcid 20 mg PO BID [facility] <Donavan Hallman - Last Filed: 04/11/16 10:34> Objective - Vital Signs/Intake and Output Vital Signs (last 24 hours): Temp Pulse Resp BP Pulse Ox 98.5 F 90 20 108/71 97 04/11/16 08:00 04/11/16 08:00 04/11/16 08:00 04/11/16 08:00 04/11/16 08:00 Intake and Output: 04/11/16 04/11/16 06:59 18:59 Intake Total 1250 Output Total 750 Balance 500 - Medications Medications: Current Medications Aspirin (Aspirin) 325 mg PEG DAILY [facility] Last Admin: 04/10/16 11:33 Dose: 325 mg Clopidogrel Bisulfate (Plavix) 75 mg PEG DAILY [facility] Last Admin: 04/10/16 11:35 Dose: 75 mg Enoxaparin Sodium (Lovenox) 40 mg SC DAILY [facility] Famotidine (Pepcid) 20 mg PEG BID [facility] Last Admin: 04/10/16 21:11 Dose: 20 mg Lisinopril (Zestril) 5 mg PEG DAILY [facility] Last Admin: 04/10/16 11:35 Dose: 5 mg Mupirocin (Bactroban Ointment) 1 gm TOP DAILY [facility] Last Admin: 04/10/16 11:33 Dose: 1 applic Oxybutynin Chloride (Ditropan Tab) 5 mg PEG TID [facility] Last Admin: 04/10/16 21:12 Dose: 5 mg Phenytoin (Dilantin) 100 mg PEG TID [facility] Last Admin: 04/10/16 21:18 Dose: 100 mg - Labs Labs: 04/08/16 07:45 04/08/16 07:45 PT 10.6 SECONDS (9.7-12.2) 11/24/15 14:10 INR 1.0 11/24/15 14:10 APTT 25 SECONDS (21-34) 11/24/15 14:10 Attending/Attestation - Attestation I have personally seen and examined this patient.: Yes I have fully participated in the care of the patient.: Yes I have reviewed all pertinent clinical information, including history, physical exam and plan: Yes Notes (Text): patient seen and examined with resident agree with resident's evaluation assessment and plan
--- NOTE | 2016-03-29 00:28 | CP.PCM.PN ---
<Lauri Araya - Last Filed: 03/29/16 00:26> Subjective - Date & Time of Evaluation Date of Evaluation: 03/29/16 Time of Evaluation: 00:20 - Subjective Subjective: Medicine Note- Hospitalist Service Patient was seen and examined at bedside. Patient was awake and alert, unresponsive to verbal stimuli. Patient appeared comfortable and in no acute distress. Patient noted to have yawned while being examined. No events overnight , per nursing. Peg tube, trach collar and baker still in place. RoS unobtainable. Objective - Vital Signs/Intake and Output Vital Signs (last 24 hours): Temp Pulse Resp BP Pulse Ox 98.6 F 64 20 120/83 100 03/28/16 16:53 03/28/16 16:53 03/28/16 16:53 03/28/16 16:53 03/28/16 16:53 Intake and Output: 03/28/16 03/29/16 18:59 06:59 Intake Total 800 850 Output Total 1400 200 Balance -600 650 - Medications Medications: Current Medications Aspirin (Aspirin) 325 mg PO DAILY [facility] Last Admin: 03/28/16 10:40 Dose: 325 mg Clopidogrel Bisulfate (Plavix) 75 mg PO DAILY [facility] Stop: 05/22/16 23:59 Last Admin: 03/28/16 10:40 Dose: 75 mg Enoxaparin Sodium (Lovenox) 40 mg SC DAILY [facility] Last Admin: 03/28/16 10:39 Dose: 40 mg Famotidine (Pepcid) 20 mg PO BID [facility] Last Admin: 03/28/16 18:00 Dose: 20 mg Lisinopril (Zestril) 5 mg PO DAILY [facility] Last Admin: 03/28/16 10:41 Dose: 5 mg Mupirocin (Bactroban Ointment) 0 gm TOP DAILY [facility] Last Admin: 03/28/16 10:00 Dose: 1 applic Oxybutynin Chloride (Ditropan Tab) 5 mg PO TID [facility] Last Admin: 03/28/16 18:00 Dose: 5 mg Phenytoin (Dilantin) 100 mg PEG TID [facility] Last Admin: 03/28/16 18:00 Dose: 100 mg - Labs Labs: 03/27/16 09:20 03/27/16 09:20 PT 10.6 SECONDS (9.7-12.2) 11/24/15 14:10 INR 1.0 11/24/15 14:10 APTT 25 SECONDS (21-34) 11/24/15 14:10 - Constitutional Appears: Non-toxic, No Acute Distress, Chronically Ill - Head Exam Head Exam: ATRAUMATIC, NORMAL INSPECTION, NORMOCEPHALIC - ENT Exam ENT Exam: Mucous Membranes Moist - Respiratory Exam Respiratory Exam: Clear to Ausculation Bilateral, NORMAL BREATHING PATTERN. absent: Prolonged Expiratory Phase, Rales, Rhonchi, Wheezes - Cardiovascular Exam Cardiovascular Exam: REGULAR RHYTHM, +S1, +S2 - Neurological Exam Neurological Exam: Alert, Awake. absent: Oriented x3 - Psychiatric Exam Psychiatric exam: absent: Normal Affect, Normal Mood - Skin Skin Exam: Dry, Intact, Normal Color, Warm Assessment and Plan (1) Anoxic encephalopathy Status: Acute (2) Cardiac arrest Status: Acute (3) Chest congestion Status: Acute (4) Edema of upper extremity Status: Acute (5) Respiratory failure Status: Acute (6) STEMI (ST elevation myocardial infarction) Status: Acute (7) Seizures Status: Acute (8) Thrombophlebitis of superficial veins of upper extremities Status: Acute (9) Transaminitis Status: Acute (10) UTI (lower urinary tract infection) Status: Acute (11) Bed sore Status: Acute (12) Prophylactic measure Status: Acute - Assessment and Plan (Free Text) Assessment: (1) Anoxic encephalopathy No acute change in mental status PEG tube operational, continue tube feedings @ 50cc/hr nightly Labs on Mondays and . Lab work reviewed 03/24/16 and within normal limits. PEG tube placed at bedside by Dr. Chan on 11/27/15 Pending placement (2) Respiratory Failure Trach collar in place WBC 5/2 within normal limits. 02/12 CXR: Linear atelectasis at the bases. Cardiomegaly. ID on case - Dr. Armstrong Sputum culture 12/06 + pseudomonas: probably colonization. No antibiotics per Dr. Armstrong tracheostomy with tube change by Dr. Chan on 11/27/15 (3) UTI Chronic WBC 5/2 within normal limits, afebrile Baker in place, no sign of leakage. Ditropan 5mg PEG TID for leakage around catheter. Continue to monitor vital signs and wbc count (4) CAD (coronary artery disease) Cardiac stents on 06/13/15. Continue Lisinopril 5mg PO daily Continue Plavix 75mg PO daily Continue ASA 325mg PO daily (5) Seizures Continue dilantin 100mg PEG TID Seizure precautions. (6) Bed sore Healed. continue wound care as needed, sensicare, and medihoney Sacral ulcer Stage II 0.5cm x 1.5cm- Healed. Continue repositioning of patient q2H. dolphin mattress. Heel air boots. (7) Prophylactic measure Lovenox 40 SC daily Pepcid 20 mg PO BID [facility] <Nyandra,Rashel - Last Filed: 03/29/16 14:46> Objective - Vital Signs/Intake and Output Vital Signs (last 24 hours): Temp Pulse Resp BP Pulse Ox 98.4 F 98 H 20 121/81 100 03/29/16 08:12 03/29/16 08:12 03/29/16 08:12 03/29/16 08:12 03/29/16 08:12 Intake and Output: 03/29/16 03/29/16 06:59 18:59 Intake Total 1550 Output Total 600 Balance 950 - Medications Medications: Current Medications Aspirin (Aspirin) 325 mg PO DAILY [facility] Last Admin: 03/29/16 12:02 Dose: 325 mg Clopidogrel Bisulfate (Plavix) 75 mg PO DAILY [facility] Stop: 05/22/16 23:59 Last Admin: 03/29/16 12:01 Dose: 75 mg Enoxaparin Sodium (Lovenox) 40 mg SC DAILY [facility] Last Admin: 03/29/16 12:00 Dose: 40 mg Famotidine (Pepcid) 20 mg PO BID [facility] Last Admin: 03/29/16 12:01 Dose: 20 mg Lisinopril (Zestril) 5 mg PO DAILY [facility] Last Admin: 03/29/16 12:01 Dose: 5 mg Mupirocin (Bactroban Ointment) 0 gm TOP DAILY [facility] Last Admin: 03/29/16 12:02 Dose: 1 applic Oxybutynin Chloride (Ditropan Tab) 5 mg PO TID [facility] Last Admin: 03/29/16 13:45 Dose: 5 mg Phenytoin (Dilantin) 100 mg PEG TID [facility] Last Admin: 03/29/16 13:45 Dose: 100 mg - Labs Labs: 03/27/16 09:20 03/27/16 09:20 PT 10.6 SECONDS (9.7-12.2) 11/24/15 14:10 INR 1.0 11/24/15 14:10 APTT 25 SECONDS (21-34) 11/24/15 14:10 Attending/Attestation - Attestation I have personally seen and examined this patient.: Yes I have fully participated in the care of the patient.: Yes I have reviewed all pertinent clinical information, including history, physical exam and plan: Yes
[2016-03-29] MEDS: Phenytoin 100 mg/4 ml Oral Susp UD PEG SCH ×3 (10:00→18:10)
[2016-03-29] MEDS: Enoxaparin 40 mg Syringe SC SCH (12:00)
--- NOTE | 2016-03-30 04:53 | CP.PCM.PN ---
<MarshalLauri - Last Filed: 03/30/16 04:51> Subjective - Date & Time of Evaluation Date of Evaluation: 03/30/16 Time of Evaluation: 04:40 - Subjective Subjective: Medicine Note- Hospitalist Service Patient was seen and examined at bedside. Patient was awake and alert, unresponsive to verbal stimuli. Patient appeared comfortable and in no acute distress. Patient noted to have yawned while being examined. No events overnight , per nursing. Peg tube, trach collar and baker still in place. RoS unobtainable. Objective - Vital Signs/Intake and Output Vital Signs (last 24 hours): Temp Pulse Resp BP Pulse Ox 98.6 F 77 20 114/77 97 03/29/16 23:42 03/29/16 23:42 03/29/16 23:42 03/29/16 23:42 03/29/16 23:42 - Medications Medications: Current Medications Aspirin (Aspirin) 325 mg PO DAILY [facility] Last Admin: 03/29/16 12:02 Dose: 325 mg Clopidogrel Bisulfate (Plavix) 75 mg PO DAILY [facility] Stop: 05/22/16 23:59 Last Admin: 03/29/16 12:01 Dose: 75 mg Enoxaparin Sodium (Lovenox) 40 mg SC DAILY [facility] Last Admin: 03/29/16 12:00 Dose: 40 mg Famotidine (Pepcid) 20 mg PO BID [facility] Last Admin: 03/29/16 18:09 Dose: 20 mg Lisinopril (Zestril) 5 mg PO DAILY [facility] Last Admin: 03/29/16 12:01 Dose: 5 mg Mupirocin (Bactroban Ointment) 0 gm TOP DAILY [facility] Last Admin: 03/29/16 12:02 Dose: 1 applic Oxybutynin Chloride (Ditropan Tab) 5 mg PO TID [facility] Last Admin: 03/29/16 18:09 Dose: 5 mg Phenytoin (Dilantin) 100 mg PEG TID [facility] Last Admin: 03/29/16 18:10 Dose: 100 mg - Labs Labs: 03/27/16 09:20 03/27/16 09:20 PT 10.6 SECONDS (9.7-12.2) 11/24/15 14:10 INR 1.0 11/24/15 14:10 APTT 25 SECONDS (21-34) 11/24/15 14:10 - Constitutional Appears: Non-toxic, No Acute Distress, Chronically Ill - Head Exam Head Exam: ATRAUMATIC, NORMAL INSPECTION, NORMOCEPHALIC - Eye Exam Pupil Exam: NORMAL ACCOMODATION - ENT Exam ENT Exam: Mucous Membranes Moist - Neck Exam Additional comments: tracheostomy, neck collar in place - Respiratory Exam Respiratory Exam: Clear to Ausculation Bilateral, NORMAL BREATHING PATTERN. absent: Prolonged Expiratory Phase, Rales, Rhonchi, Wheezes - Cardiovascular Exam Cardiovascular Exam: REGULAR RHYTHM, +S1, +S2 - GI/Abdominal Exam GI & Abdominal Exam: Soft, Normal Bowel Sounds. absent: Tenderness, Diminished Bowel Sounds, Hypoactive Bowel Sounds Additional comments: peg tube in position - Neurological Exam Neurological Exam: Alert, Awake, Oriented x3 - Skin Skin Exam: Dry, Intact, Normal Color, Warm Assessment and Plan (1) Anoxic encephalopathy Status: Acute (2) Cardiac arrest Status: Acute (3) Chest congestion Status: Acute (4) Edema of upper extremity Status: Acute (5) Respiratory failure Status: Acute (6) STEMI (ST elevation myocardial infarction) Status: Acute (7) Seizures Status: Acute (8) Thrombophlebitis of superficial veins of upper extremities Status: Acute (9) Transaminitis Status: Acute (10) UTI (lower urinary tract infection) Status: Acute (11) Bed sore Status: Acute (12) Prophylactic measure Status: Acute - Assessment and Plan (Free Text) Assessment: (1) Anoxic encephalopathy No acute change in mental status PEG tube operational, continue tube feedings @ 50cc/hr nightly Labs on Mondays and . Lab work reviewed 03/24/16 and within normal limits. PEG tube placed at bedside by Dr. Chan on 11/27/15 Pending placement (2) Respiratory Failure Trach collar in place WBC 5/2 within normal limits. 02/12 CXR: Linear atelectasis at the bases. Cardiomegaly. ID on case - Dr. Armstrong Sputum culture 12/06 + pseudomonas: probably colonization. No antibiotics per Dr. Armstrong tracheostomy with tube change by Dr. Chan on 11/27/15 (3) UTI Chronic WBC 5/2 within normal limits, afebrile Baker in place, no sign of leakage. Ditropan 5mg PEG TID for leakage around catheter. Continue to monitor vital signs and wbc count (4) CAD (coronary artery disease) Cardiac stents on 06/13/15. Continue Lisinopril 5mg PO daily Continue Plavix 75mg PO daily Continue ASA 325mg PO daily (5) Seizures Continue dilantin 100mg PEG TID Seizure precautions. (6) Bed sore Healed. continue wound care as needed, sensicare, and medihoney Sacral ulcer Stage II 0.5cm x 1.5cm- Healed. Continue repositioning of patient q2H. dolphin mattress. Heel air boots. (7) Prophylactic measure Lovenox 40 SC daily Pepcid 20 mg PO BID [facility] <RaviRashel - Last Filed: 03/30/16 16:18> Objective - Vital Signs/Intake and Output Vital Signs (last 24 hours): Temp Pulse Resp BP Pulse Ox 98.4 F 78 20 118/75 97 03/30/16 07:52 03/30/16 15:19 03/30/16 07:52 03/30/16 07:52 03/30/16 07:52 Intake and Output: 03/30/16 03/30/16 06:59 18:59 Intake Total 700 780 Output Total 800 800 Balance -100 -20 - Medications Medications: Current Medications Aspirin (Aspirin) 325 mg PO DAILY [facility] Last Admin: 03/30/16 09:14 Dose: 325 mg Clopidogrel Bisulfate (Plavix) 75 mg PO DAILY [facility] Stop: 05/22/16 23:59 Last Admin: 03/30/16 09:14 Dose: 75 mg Enoxaparin Sodium (Lovenox) 40 mg SC DAILY [facility] Last Admin: 03/30/16 09:14 Dose: 40 mg Famotidine (Pepcid) 20 mg PO BID [facility] Last Admin: 03/30/16 09:14 Dose: 20 mg Lisinopril (Zestril) 5 mg PO DAILY [facility] Last Admin: 03/30/16 09:14 Dose: 5 mg Mupirocin (Bactroban Ointment) 0 gm TOP DAILY [facility] Last Admin: 03/30/16 09:15 Dose: 1 applic Oxybutynin Chloride (Ditropan Tab) 5 mg PO TID [facility] Last Admin: 03/30/16 14:22 Dose: 5 mg Phenytoin (Dilantin) 100 mg PEG TID [facility] Last Admin: 03/30/16 14:22 Dose: 100 mg - Labs Labs: 03/27/16 09:20 03/27/16 09:20 PT 10.6 SECONDS (9.7-12.2) 11/24/15 14:10 INR 1.0 11/24/15 14:10 APTT 25 SECONDS (21-34) 11/24/15 14:10 Attending/Attestation - Attestation I have personally seen and examined this patient.: Yes I have fully participated in the care of the patient.: Yes I have reviewed all pertinent clinical information, including history, physical exam and plan: Yes
[2016-03-30] MEDS: Enoxaparin 40 mg Syringe SC SCH (09:14)
[2016-03-30] MEDS: Phenytoin 100 mg/4 ml Oral Susp UD PEG SCH ×3 (09:14→17:18)
[2016-03-31 07:17] LABS: ALBUMIN 3.6 g/dL (3.5-5.0)
[2016-03-31 07:19] LABS: GFR NON-AFRICAN AMERICAN > 60
[2016-03-31 07:20] LABS: ALB/GLOB RATIO 0.9 (1.0-2.1); ALT/SGPT 59 U/L (21-72); AST/SGOT 33 U/L (17-59); BLOOD UREA NITROGEN 16 mg/dL (9-20)
[2016-03-31 07:21] LABS: CALCIUM 8.8 mg/dl (8.6-10.4)
[2016-03-31 08:05] LABS: BASO % 0.2 % (0.0-2.0); EOS # 0.6 K/uL (0.0-0.7); EOS % 5.9 % (0.0-4.0); HEMOGLOBIN 12.4 g/dL (12.0-18.0); LYMPH # 1.5 K/uL (1.0-4.3); LYMPH % 15.2 % (20.0-40.0); MEAN CELL VOLUME 92.3 fL (80.0-94.0); MEAN CORPUSCULAR HEMOGLOBIN 30.6 pg (27.0-31.0); MEAN CORPUSCULAR HGB CONC 33.1 g/dL (33.0-37.0); MEAN PLATELET VOLUME 8.6 fL (7.2-11.7); MONO # 0.8 K/uL (0.0-0.8); MONO % 8.6 % (0.0-10.0); NEUT # 6.9 K/uL (1.8-7.0); NEUT % 70.1 % (50.0-75.0); NRBC % 0.1 % (0.0-2.0); RBC 4.06 Mil/uL (4.40-5.90); RED CELL DISTRIBUTION WIDTH 14.7 % (11.5-14.5); WHITE BLOOD COUNT 9.8 K/uL (4.8-10.8)
[2016-03-31] MEDS: Phenytoin 100 mg/4 ml Oral Susp UD PEG SCH ×3 (10:00→17:56)
[2016-03-31] MEDS: Enoxaparin 40 mg Syringe SC SCH (11:59)
--- NOTE | 2016-03-31 14:10 | CP.PCM.PN ---
<MarcellaPati AleksandraWillaDebra - Last Filed: 03/31/16 14:06> Subjective - Date & Time of Evaluation Date of Evaluation: 03/31/16 Time of Evaluation: 09:10 - Subjective Subjective: Patient seen and examined. Patient altered, nonverbal. No response to verbal/ tactile/noxious stimuli. Patient with trach collar, PEG tube, and Yoo in place. Yoo with adequate clear yellow urine output. No acute overnight events reported. Objective - Vital Signs/Intake and Output Vital Signs (last 24 hours): Temp Pulse Resp BP Pulse Ox 98.5 F 97 H 18 133/92 H 98 03/31/16 08:00 03/31/16 08:00 03/31/16 08:00 03/31/16 08:00 03/31/16 08:00 Intake and Output: 03/31/16 03/31/16 06:59 18:59 Intake Total 1550 Output Total 1600 Balance -50 - Medications Medications: Current Medications Aspirin (Aspirin) 325 mg PO DAILY [facility] Last Admin: 03/31/16 11:59 Dose: 325 mg Clopidogrel Bisulfate (Plavix) 75 mg PO DAILY [facility] Stop: 05/22/16 23:59 Last Admin: 03/31/16 11:59 Dose: 75 mg Enoxaparin Sodium (Lovenox) 40 mg SC DAILY [facility] Last Admin: 03/31/16 11:59 Dose: 40 mg Famotidine (Pepcid) 20 mg PO BID [facility] Last Admin: 03/31/16 12:01 Dose: 20 mg Lisinopril (Zestril) 5 mg PO DAILY [facility] Last Admin: 03/31/16 11:58 Dose: 5 mg Mupirocin (Bactroban Ointment) 0 gm TOP DAILY [facility] Last Admin: 03/31/16 12:00 Dose: 1 applic Oxybutynin Chloride (Ditropan Tab) 5 mg PO TID [facility] Last Admin: 03/31/16 14:04 Dose: 5 mg Phenytoin (Dilantin) 100 mg PEG TID [facility] Last Admin: 03/31/16 14:04 Dose: 100 mg - Labs Labs: 03/31/16 06:45 03/31/16 06:45 PT 10.6 SECONDS (9.7-12.2) 11/24/15 14:10 INR 1.0 11/24/15 14:10 APTT 25 SECONDS (21-34) 11/24/15 14:10 - Constitutional Appears: No Acute Distress - Eye Exam Eye Exam: Normal appearance - ENT Exam ENT Exam: Mucous Membranes Moist - Neck Exam Additional comments: Trach collar in place with no erythema/swelling/blood - Respiratory Exam Respiratory Exam: Rhonchi Additional comments: pt on ventilator - Cardiovascular Exam Cardiovascular Exam: REGULAR RHYTHM - GI/Abdominal Exam Additional comments: PEG tube in place, covered in dressing, clean and dry, no surrounding erythema/ swelling - Neurological Exam Additional comments: nonverbal, does not respond to tactile/verbal stimuli Assessment and Plan - Assessment and Plan (Free Text) Assessment: (1) Anoxic encephalopathy No acute change in mental status PEG tube operational, continue tube feedings @ 50cc/hr nightly Labs on Mondays and . Lab work reviewed 03/24/16 and within normal limits. PEG tube placed at bedside by Dr. Chan on 11/27/15 Pending placement (2) Respiratory Failure Trach collar in place WBC 5/2 within normal limits. 02/12 CXR: Linear atelectasis at the bases. Cardiomegaly. ID on case - Dr. Armstrong Sputum culture 12/06 + pseudomonas: probably colonization. No antibiotics per Dr. Armstrong tracheostomy with tube change by Dr. Chan on 11/27/15 (3) UTI Chronic WBC 5/2 within normal limits, afebrile Yoo in place, no sign of leakage. Ditropan 5mg PEG TID for leakage around catheter. Continue to monitor vital signs and wbc count (4) CAD (coronary artery disease) Cardiac stents on 06/13/15. Continue Lisinopril 5mg PO daily Continue Plavix 75mg PO daily Continue ASA 325mg PO daily (5) Seizures Continue dilantin 100mg PEG TID Seizure precautions. (6) Bed sore Healed. continue wound care as needed, sensicare, and medihoney Sacral ulcer Stage II 0.5cm x 1.5cm- Healed. Continue repositioning of patient q2H. dolphin mattress. Heel air boots. (7) Prophylactic measure Lovenox 40 SC daily Pepcid 20 mg PO BID [facility] <Donnell Ying - Last Filed: 03/31/16 15:38> Objective - Vital Signs/Intake and Output Vital Signs (last 24 hours): Temp Pulse Resp BP Pulse Ox 98.5 F 97 H 18 133/92 H 98 03/31/16 08:00 03/31/16 15:07 03/31/16 08:00 03/31/16 08:00 03/31/16 08:00 Intake and Output: 03/31/16 03/31/16 06:59 18:59 Intake Total 1550 480 Output Total 1600 Balance -50 480 - Medications Medications: Current Medications Aspirin (Aspirin) 325 mg PO DAILY [facility] Last Admin: 03/31/16 11:59 Dose: 325 mg Clopidogrel Bisulfate (Plavix) 75 mg PO DAILY [facility] Stop: 05/22/16 23:59 Last Admin: 03/31/16 11:59 Dose: 75 mg Enoxaparin Sodium (Lovenox) 40 mg SC DAILY [facility] Last Admin: 03/31/16 11:59 Dose: 40 mg Famotidine (Pepcid) 20 mg PO BID [facility] Last Admin: 03/31/16 12:01 Dose: 20 mg Lisinopril (Zestril) 5 mg PO DAILY [facility] Last Admin: 03/31/16 11:58 Dose: 5 mg Mupirocin (Bactroban Ointment) 0 gm TOP DAILY [facility] Last Admin: 03/31/16 12:00 Dose: 1 applic Oxybutynin Chloride (Ditropan Tab) 5 mg PO TID [facility] Last Admin: 03/31/16 14:04 Dose: 5 mg Phenytoin (Dilantin) 100 mg PEG TID [facility] Last Admin: 03/31/16 14:04 Dose: 100 mg - Labs Labs: 03/31/16 06:45 03/31/16 06:45 PT 10.6 SECONDS (9.7-12.2) 11/24/15 14:10 INR 1.0 11/24/15 14:10 APTT 25 SECONDS (21-34) 11/24/15 14:10 Attending/Attestation - Attestation I have personally seen and examined this patient.: Yes I have fully participated in the care of the patient.: Yes I have reviewed all pertinent clinical information, including history, physical exam and plan: Yes Notes (Text): 03/31/16 15:38 Patient was seen and examined at bedside with the resident. There is no change in clinical condition. Continue PEG and trach care. Decubitus ulcer healed. Continue to turn and position every 2 hours. Continue current management.
[2016-04-01] MEDS: Enoxaparin 40 mg Syringe SC SCH (11:03)
[2016-04-01] MEDS: Phenytoin 100 mg/4 ml Oral Susp UD PEG SCH ×3 (11:05→17:41)
--- NOTE | 2016-04-01 13:14 | CP.PCM.PN ---
<Sandra Mercedes - Last Filed: 04/01/16 13:11> Subjective - Date & Time of Evaluation Date of Evaluation: 04/01/16 Time of Evaluation: 09:30 - Subjective Subjective: Medicine Note-Dr. Pernell Ying's Service Pt seen and examined. Pt is asleep and does not respond to verbal command. Pt is on vent, has baker in place and PEG in place. Insertion sites are clean. No acute events as per nursing. Pt has regular suctioning for secretions. Wounds checked and healing. Objective - Vital Signs/Intake and Output Vital Signs (last 24 hours): Temp Pulse Resp BP Pulse Ox 98.7 F 97 H 18 132/93 H 100 04/01/16 08:00 04/01/16 08:00 04/01/16 08:00 04/01/16 08:00 04/01/16 08:00 Intake and Output: 04/01/16 04/01/16 06:59 18:59 Intake Total 1550 Output Total 850 Balance 700 - Medications Medications: Current Medications Aspirin (Aspirin) 325 mg PO DAILY [facility] Last Admin: 04/01/16 11:03 Dose: 325 mg Clopidogrel Bisulfate (Plavix) 75 mg PO DAILY [facility] Stop: 05/22/16 23:59 Last Admin: 04/01/16 11:03 Dose: 75 mg Enoxaparin Sodium (Lovenox) 40 mg SC DAILY [facility] Last Admin: 04/01/16 11:03 Dose: 40 mg Famotidine (Pepcid) 20 mg PO BID [facility] Last Admin: 04/01/16 11:04 Dose: 20 mg Lisinopril (Zestril) 5 mg PO DAILY [facility] Last Admin: 04/01/16 11:03 Dose: 5 mg Mupirocin (Bactroban Ointment) 0 gm TOP DAILY [facility] Last Admin: 04/01/16 11:06 Dose: 1 applic Oxybutynin Chloride (Ditropan Tab) 5 mg PO TID [facility] Last Admin: 04/01/16 11:04 Dose: 5 mg Phenytoin (Dilantin) 100 mg PEG TID [facility] Last Admin: 04/01/16 11:05 Dose: 100 mg - Labs Labs: 03/31/16 06:45 03/31/16 06:45 PT 10.6 SECONDS (9.7-12.2) 11/24/15 14:10 INR 1.0 11/24/15 14:10 APTT 25 SECONDS (21-34) 11/24/15 14:10 - Constitutional Appears: No Acute Distress, Chronically Ill - Head Exam Head Exam: NORMAL INSPECTION, NORMOCEPHALIC - Eye Exam Pupil Exam: Fixed - ENT Exam Additional comments: Trach collar - Respiratory Exam Respiratory Exam: Rhonchi Additional comments: On vent - Cardiovascular Exam Cardiovascular Exam: REGULAR RHYTHM, +S1, +S2 - GI/Abdominal Exam GI & Abdominal Exam: Soft Additional comments: PEG in place - Neurological Exam Additional comments: Nonverbal - Skin Skin Exam: Normal Color Additional comments: Sacral wound healing Assessment and Plan - Assessment and Plan (Free Text) Assessment: (1) Anoxic encephalopathy No acute change in mental status PEG tube operational, continue tube feedings @ 50cc/hr nightly Labs on Mondays and . Lab work reviewed 03/24/16 and within normal limits. PEG tube placed at bedside by Dr. Chan on 11/27/15 Pending placement (2) Respiratory Failure Trach collar in place WBC 5/9 within normal limits. 02/12 CXR: Linear atelectasis at the bases. Cardiomegaly. ID on case - Dr. Armstrong Sputum culture 12/06 + pseudomonas: probably colonization. No antibiotics per Dr. Armstrong tracheostomy with tube change by Dr. Chan on 11/27/15 (3) UTI Chronic WBC 5/9 within normal limits, afebrile Baker in place, no sign of leakage. Ditropan 5mg PEG TID for leakage around catheter. Continue to monitor vital signs and wbc count (4) CAD (coronary artery disease) Cardiac stents on 06/13/15. Continue Lisinopril 5mg PO daily Continue Plavix 75mg PO daily Continue ASA 325mg PO daily (5) Seizures Continue dilantin 100mg PEG TID Seizure precautions. (6) Bed sore Healed. continue wound care as needed, sensicare, and medihoney Sacral ulcer Stage II 0.5cm x 1.5cm- Healed. Continue repositioning of patient q2H. dolphin mattress. Heel air boots. (7) Prophylactic measure Lovenox 40 SC daily Pepcid 20 mg PO BID [facility] <Donnell Ying - Last Filed: 04/01/16 17:11> Objective - Vital Signs/Intake and Output Vital Signs (last 24 hours): Temp Pulse Resp BP Pulse Ox 98.5 F 88 19 116/81 100 04/01/16 16:00 04/01/16 16:00 04/01/16 16:00 04/01/16 16:00 04/01/16 16:00 Intake and Output: 04/01/16 04/01/16 06:59 18:59 Intake Total 1550 480 Output Total 850 Balance 700 480 - Medications Medications: Current Medications Aspirin (Aspirin) 325 mg PO DAILY [facility] Last Admin: 04/01/16 11:03 Dose: 325 mg Clopidogrel Bisulfate (Plavix) 75 mg PO DAILY [facility] Stop: 05/22/16 23:59 Last Admin: 04/01/16 11:03 Dose: 75 mg Enoxaparin Sodium (Lovenox) 40 mg SC DAILY [facility] Last Admin: 04/01/16 11:03 Dose: 40 mg Famotidine (Pepcid) 20 mg PO BID [facility] Last Admin: 04/01/16 11:04 Dose: 20 mg Lisinopril (Zestril) 5 mg PO DAILY [facility] Last Admin: 04/01/16 11:03 Dose: 5 mg Mupirocin (Bactroban Ointment) 0 gm TOP DAILY [facility] Last Admin: 04/01/16 11:06 Dose: 1 applic Oxybutynin Chloride (Ditropan Tab) 5 mg PO TID [facility] Last Admin: 04/01/16 14:21 Dose: 5 mg Phenytoin (Dilantin) 100 mg PEG TID [facility] Last Admin: 04/01/16 14:21 Dose: 100 mg - Labs Labs: 03/31/16 06:45 03/31/16 06:45 PT 10.6 SECONDS (9.7-12.2) 11/24/15 14:10 INR 1.0 11/24/15 14:10 APTT 25 SECONDS (21-34) 11/24/15 14:10 Attending/Attestation - Attestation I have personally seen and examined this patient.: Yes I have fully participated in the care of the patient.: Yes I have reviewed all pertinent clinical information, including history, physical exam and plan: Yes Notes (Text): 04/01/16 17:10 Patient seen and examined at bedside with the resident. No change in clinical condition. Turn and position every 2 hours. Local care and off for tracheostomy and PEG site. Discussed with the nursing staff.
[2016-04-02] MEDS: Phenytoin 100 mg/4 ml Oral Susp UD PEG SCH ×3 (09:11→17:50)
[2016-04-02] MEDS: Enoxaparin 40 mg Syringe SC SCH (11:00)
--- NOTE | 2016-04-02 16:09 | CP.PCM.PN ---
<MarcellaPati LakeWillaDebra - Last Filed: 04/02/16 16:32> Subjective - Date & Time of Evaluation Date of Evaluation: 04/02/16 Time of Evaluation: 14:00 - Subjective Subjective: Patient seen and examined. at bedside and asking if patient's mental status will change. Reconfirmed to family member that patient has anoxic brain injury. Objective - Vital Signs/Intake and Output Vital Signs (last 24 hours): Temp Pulse Resp BP Pulse Ox 98.4 F 78 20 116/77 100 04/02/16 15:55 04/02/16 15:55 04/02/16 15:55 04/02/16 15:55 04/02/16 15:55 Intake and Output: 04/02/16 04/02/16 06:59 18:59 Intake Total 1550 775 Output Total 900 Balance 650 775 - Medications Medications: Current Medications Aspirin (Aspirin) 325 mg PO DAILY [facility] Last Admin: 04/02/16 09:10 Dose: 325 mg Clopidogrel Bisulfate (Plavix) 75 mg PO DAILY [facility] Stop: 05/22/16 23:59 Last Admin: 04/02/16 09:10 Dose: 75 mg Enoxaparin Sodium (Lovenox) 40 mg SC DAILY [facility] Last Admin: 04/02/16 11:00 Dose: 40 mg Famotidine (Pepcid) 20 mg PO BID [facility] Last Admin: 04/02/16 09:10 Dose: 20 mg Lisinopril (Zestril) 5 mg PO DAILY [facility] Last Admin: 04/02/16 09:10 Dose: 5 mg Mupirocin (Bactroban Ointment) 0 gm TOP DAILY [facility] Last Admin: 04/02/16 09:12 Dose: 1 applic Oxybutynin Chloride (Ditropan Tab) 5 mg PO TID [facility] Last Admin: 04/02/16 13:11 Dose: 5 mg Phenytoin (Dilantin) 100 mg PEG TID [facility] Last Admin: 04/02/16 13:11 Dose: 100 mg - Labs Labs: 03/31/16 06:45 03/31/16 06:45 PT 10.6 SECONDS (9.7-12.2) 11/24/15 14:10 INR 1.0 11/24/15 14:10 APTT 25 SECONDS (21-34) 11/24/15 14:10 - Constitutional Appears: No Acute Distress - Eye Exam Eye Exam: Normal appearance - ENT Exam ENT Exam: Mucous Membranes Moist - Neck Exam Additional comments: Trach collar in place with no erythema/swelling/blood - Respiratory Exam Respiratory Exam: Rhonchi - Cardiovascular Exam Cardiovascular Exam: REGULAR RHYTHM - GI/Abdominal Exam GI & Abdominal Exam: Soft. absent: Tenderness Additional comments: PEG tube in place, covered in dressing, clean and dry, no surrounding erythema/ swelling - Neurological Exam Additional comments: nonverbal, does not respond to tactile/verbal stimuli Assessment and Plan - Assessment and Plan (Free Text) Assessment: (1) Anoxic encephalopathy No acute change in mental status PEG tube operational, continue tube feedings @ 50cc/hr nightly Labs on Mondays and . Lab work reviewed 03/31/16 and within normal limits. PEG tube placed at bedside by Dr. Chan on 11/27/15 Pending placement (2) Respiratory Failure Trach collar in place WBC 5/2 within normal limits. 02/12 CXR: Linear atelectasis at the bases. Cardiomegaly. ID on case - Dr. Armstrong Sputum culture 12/06 + pseudomonas: probably colonization. No antibiotics per Dr. Armstrong tracheostomy with tube change by Dr. Chan on 11/27/15 (3) UTI Chronic WBC 5/2 within normal limits, afebrile Yoo in place, no sign of leakage. Ditropan 5mg PEG TID for leakage around catheter. Continue to monitor vital signs and wbc count (4) CAD (coronary artery disease) Cardiac stents on 06/13/15. Continue Lisinopril 5mg PO daily Continue Plavix 75mg PO daily Continue ASA 325mg PO daily (5) Seizures Continue dilantin 100mg PEG TID Seizure precautions. (6) Bed sore Healed. continue wound care as needed, sensicare, and medihoney Sacral ulcer Stage II 0.5cm x 1.5cm- Healed. Continue repositioning of patient q2H. dolphin mattress. Heel air boots. (7) Prophylactic measure Lovenox 40 SC daily Pepcid 20 mg PO BID [facility] <Donnell Ying M - Last Filed: 04/02/16 16:44> Objective - Vital Signs/Intake and Output Vital Signs (last 24 hours): Temp Pulse Resp BP Pulse Ox 98.4 F 78 20 116/77 100 04/02/16 15:55 04/02/16 15:55 04/02/16 15:55 04/02/16 15:55 04/02/16 15:55 Intake and Output: 04/02/16 04/02/16 06:59 18:59 Intake Total 1550 775 Output Total 900 Balance 650 775 - Medications Medications: Current Medications Aspirin (Aspirin) 325 mg PO DAILY [facility] Last Admin: 04/02/16 09:10 Dose: 325 mg Clopidogrel Bisulfate (Plavix) 75 mg PO DAILY [facility] Stop: 05/22/16 23:59 Last Admin: 04/02/16 09:10 Dose: 75 mg Enoxaparin Sodium (Lovenox) 40 mg SC DAILY [facility] Last Admin: 04/02/16 11:00 Dose: 40 mg Famotidine (Pepcid) 20 mg PO BID [facility] Last Admin: 04/02/16 09:10 Dose: 20 mg Lisinopril (Zestril) 5 mg PO DAILY [facility] Last Admin: 04/02/16 09:10 Dose: 5 mg Mupirocin (Bactroban Ointment) 0 gm TOP DAILY [facility] Last Admin: 04/02/16 09:12 Dose: 1 applic Oxybutynin Chloride (Ditropan Tab) 5 mg PO TID [facility] Last Admin: 04/02/16 13:11 Dose: 5 mg Phenytoin (Dilantin) 100 mg PEG TID [facility] Last Admin: 04/02/16 13:11 Dose: 100 mg - Labs Labs: 03/31/16 06:45 03/31/16 06:45 PT 10.6 SECONDS (9.7-12.2) 11/24/15 14:10 INR 1.0 11/24/15 14:10 APTT 25 SECONDS (21-34) 11/24/15 14:10 Attending/Attestation - Attestation I have personally seen and examined this patient.: Yes I have fully participated in the care of the patient.: Yes I have reviewed all pertinent clinical information, including history, physical exam and plan: Yes Notes (Text): 04/02/16 16:43 Patient seen and examined at bedside. There is no change in clinical condition. Continue to turn and position every 2 hours. Local wound care of tracheostomy site and PEG tube site. Local wound care of the decubitus ulcer. Which is healed.
--- NOTE | 2016-04-03 07:10 | CP.PCM.PN ---
<Saba Ennis - Last Filed: 04/03/16 07:40> Subjective - Date & Time of Evaluation Date of Evaluation: 04/03/16 Time of Evaluation: 07:30 - Subjective Subjective: Patient seen and examined this morning. Patient awake but not responsive to verbal/tactile/noxious stimuli. Feeds running at 50 cc/hr and will be turned off at 8am. Patient having normal BMs as per nursing. Trach collar with minimal secretions. No acute overnight events reports. Objective - Vital Signs/Intake and Output Vital Signs (last 24 hours): Temp Pulse Resp BP Pulse Ox 98.6 F 68 20 109/74 98 04/02/16 23:27 04/02/16 23:27 04/02/16 23:27 04/02/16 23:27 04/02/16 23:27 Intake and Output: 04/03/16 04/03/16 06:59 18:59 Intake Total 850 Output Total 300 Balance 550 - Medications Medications: Current Medications Aspirin (Aspirin) 325 mg PO DAILY [facility] Last Admin: 04/02/16 09:10 Dose: 325 mg Clopidogrel Bisulfate (Plavix) 75 mg PO DAILY [facility] Stop: 05/22/16 23:59 Last Admin: 04/02/16 09:10 Dose: 75 mg Enoxaparin Sodium (Lovenox) 40 mg SC DAILY [facility] Last Admin: 04/02/16 11:00 Dose: 40 mg Famotidine (Pepcid) 20 mg PO BID [facility] Last Admin: 04/02/16 17:49 Dose: 20 mg Lisinopril (Zestril) 5 mg PO DAILY [facility] Last Admin: 04/02/16 09:10 Dose: 5 mg Mupirocin (Bactroban Ointment) 0 gm TOP DAILY [facility] Last Admin: 04/02/16 09:12 Dose: 1 applic Oxybutynin Chloride (Ditropan Tab) 5 mg PO TID [facility] Last Admin: 04/02/16 17:49 Dose: 5 mg Phenytoin (Dilantin) 100 mg PEG TID [facility] Last Admin: 04/02/16 17:50 Dose: 100 mg - Labs Labs: 03/31/16 06:45 03/31/16 06:45 PT 10.6 SECONDS (9.7-12.2) 11/24/15 14:10 INR 1.0 11/24/15 14:10 APTT 25 SECONDS (21-34) 11/24/15 14:10 - Constitutional Appears: No Acute Distress, Chronically Ill - Head Exam Head Exam: NORMAL INSPECTION - Eye Exam Pupil Exam: PERRL - ENT Exam ENT Exam: Mucous Membranes Moist - Neck Exam Additional comments: Trach collar in place with no erythema/swelling/blood. - Respiratory Exam Respiratory Exam: Clear to Ausculation Bilateral, NORMAL BREATHING PATTERN Additional comments: pt on ventilator - GI/Abdominal Exam GI & Abdominal Exam: Distended (mildly), Soft, Normal Bowel Sounds Additional comments: PEG tube in place, covered in dressing, clean and dry, no surrounding erythema/ swelling - Extremities Exam Additional comments: heel air boots bilateral LE - Neurological Exam Additional comments: nonverbal, does not respond to tactile/verbal stimuli Assessment and Plan - Assessment and Plan (Free Text) Assessment: (1) Anoxic encephalopathy No acute change in mental status PEG tube operational, continue tube feedings @ 50cc/hr nightly Labs on Mondays and . Lab work reviewed 03/31/16 and within normal limits. PEG tube placed at bedside by Dr. Chan on 11/27/15 Pending placement (2) Respiratory Failure Trach collar in place. Monitor site for infection/inflammation. WBC 03/31/16 within normal limits. 02/12 CXR: Linear atelectasis at the bases. Cardiomegaly. ID on case - Dr. Armstrong Sputum culture 12/06 + pseudomonas: probably colonization. No antibiotics per Dr. Armstrong tracheostomy with tube change by Dr. Chan on 11/27/15 (3) UTI Chronic WBC 5/2 within normal limits, afebrile Yoo in place, no sign of leakage. Ditropan 5mg PEG TID for leakage around catheter. Continue to monitor vital signs and wbc count (4) CAD (coronary artery disease) Cardiac stents on 06/13/15. Continue Lisinopril 5mg PO daily Continue Plavix 75mg PO daily Continue ASA 325mg PO daily (5) Seizures Continue dilantin 100mg PEG TID Seizure precautions. (6) Bed sore Healed. continue wound care as needed, [facility], and [facility] Sacral ulcer Stage II 0.5cm x 1.5cm- Healed. Continue repositioning of patient q2H. dolphin mattress. Heel air boots. (7) Prophylactic measure Lovenox 40 SC daily Pepcid 20 mg PO BID [facility] <Donnell Ying M - Last Filed: 04/04/16 09:50> Objective - Vital Signs/Intake and Output Vital Signs (last 24 hours): Temp Pulse Resp BP Pulse Ox 98.2 F 70 20 118/76 100 04/04/16 08:12 04/04/16 08:12 04/04/16 08:12 04/04/16 08:12 04/04/16 08:12 Intake and Output: 04/04/16 04/04/16 06:59 18:59 Intake Total 1450 Output Total 1050 Balance 400 - Medications Medications: Current Medications Aspirin (Aspirin) 325 mg PO DAILY [facility] Last Admin: 04/04/16 09:15 Dose: 325 mg Clopidogrel Bisulfate (Plavix) 75 mg PO DAILY [facility] Stop: 05/22/16 23:59 Last Admin: 04/04/16 09:15 Dose: 75 mg Enoxaparin Sodium (Lovenox) 40 mg SC DAILY [facility] Last Admin: 04/04/16 09:16 Dose: 40 mg Famotidine (Pepcid) 20 mg PO BID [facility] Last Admin: 04/04/16 09:15 Dose: 20 mg Lisinopril (Zestril) 5 mg PO DAILY [facility] Last Admin: 04/04/16 09:15 Dose: 5 mg Mupirocin (Bactroban Ointment) 0 gm TOP DAILY [facility] Last Admin: 04/04/16 09:19 Dose: 1 applic Oxybutynin Chloride (Ditropan Tab) 5 mg PO TID [facility] Last Admin: 04/04/16 09:15 Dose: 5 mg Phenytoin (Dilantin) 100 mg PEG TID [facility] Last Admin: 04/04/16 09:15 Dose: 100 mg - Labs Labs: 04/03/16 08:12 04/03/16 08:12 PT 10.6 SECONDS (9.7-12.2) 11/24/15 14:10 INR 1.0 11/24/15 14:10 APTT 25 SECONDS (21-34) 11/24/15 14:10 Attending/Attestation - Attestation I have personally seen and examined this patient.: Yes I have fully participated in the care of the patient.: Yes I have reviewed all pertinent clinical information, including history, physical exam and plan: Yes Notes (Text): 04/04/16 09:49 Patient seen and examined at bedside with the resident. There is no change in clinical condition. Continue to turn and position every 2 hours. Continue local care of tracheostomy and PEG tube. Continue local care for decubitus ulcer which is healed
[2016-04-03 08:21] LABS: BASO % 0.2 % (0.0-2.0); EOS # 0.7 K/uL (0.0-0.7); EOS % 7.3 % (0.0-4.0); HEMOGLOBIN 12.5 g/dL (12.0-18.0); LYMPH # 1.7 K/uL (1.0-4.3); LYMPH % 18.6 % (20.0-40.0); MEAN CORPUSCULAR HEMOGLOBIN 30.5 pg (27.0-31.0); MEAN CORPUSCULAR HGB CONC 33.2 g/dL (33.0-37.0); MEAN PLATELET VOLUME 8.7 fL (7.2-11.7); MONO # 0.8 K/uL (0.0-0.8); MONO % 8.2 % (0.0-10.0); NEUT % 65.7 % (50.0-75.0); NRBC % 0.1 % (0.0-2.0); RBC 4.1 Mil/uL (4.40-5.90); RED CELL DISTRIBUTION WIDTH 14.8 % (11.5-14.5); WHITE BLOOD COUNT 9.2 K/uL (4.8-10.8)
[2016-04-03 08:38] LABS: ALBUMIN 3.5 g/dL (3.5-5.0)
[2016-04-03 08:40] LABS: AST/SGOT 26 U/L (17-59); GFR NON-AFRICAN AMERICAN > 60
[2016-04-03 08:41] LABS: ALB/GLOB RATIO 0.9 (1.0-2.1); ALT/SGPT 56 U/L (21-72); BLOOD UREA NITROGEN 19 mg/dL (9-20); CALCIUM 8.8 mg/dl (8.6-10.4)
[2016-04-03] MEDS: Enoxaparin 40 mg Syringe SC SCH (09:04)
[2016-04-03] MEDS: Phenytoin 100 mg/4 ml Oral Susp UD PEG SCH ×3 (09:04→17:10)
--- NOTE | 2016-04-04 07:54 | CP.PCM.PN ---
<Saba Ennis - Last Filed: 04/04/16 20:46> Subjective - Date & Time of Evaluation Date of Evaluation: 04/04/16 Time of Evaluation: 09:30 - Subjective Subjective: Pt seen and examined. No acute events as per nursing. No change in clinical status. Trach collar in place. Pt has been afebrile. Objective - Vital Signs/Intake and Output Vital Signs (last 24 hours): Temp Pulse Resp BP Pulse Ox 98.5 F 88 20 117/74 98 04/04/16 00:00 04/04/16 00:00 04/04/16 00:00 04/04/16 00:00 04/04/16 00:00 Intake and Output: 04/04/16 04/04/16 06:59 18:59 Intake Total 1450 Output Total 1050 Balance 400 - Medications Medications: Current Medications Aspirin (Aspirin) 325 mg PO DAILY [facility] Last Admin: 04/03/16 09:04 Dose: 325 mg Clopidogrel Bisulfate (Plavix) 75 mg PO DAILY [facility] Stop: 05/22/16 23:59 Last Admin: 04/03/16 09:04 Dose: 75 mg Enoxaparin Sodium (Lovenox) 40 mg SC DAILY [facility] Last Admin: 04/03/16 09:04 Dose: 40 mg Famotidine (Pepcid) 20 mg PO BID [facility] Last Admin: 04/03/16 17:10 Dose: 20 mg Lisinopril (Zestril) 5 mg PO DAILY [facility] Last Admin: 04/03/16 09:04 Dose: 5 mg Mupirocin (Bactroban Ointment) 0 gm TOP DAILY [facility] Last Admin: 04/03/16 09:06 Dose: 1 applic Oxybutynin Chloride (Ditropan Tab) 5 mg PO TID [facility] Last Admin: 04/03/16 17:10 Dose: 5 mg Phenytoin (Dilantin) 100 mg PEG TID [facility] Last Admin: 04/03/16 17:10 Dose: 100 mg - Labs Labs: 04/03/16 08:12 04/03/16 08:12 PT 10.6 SECONDS (9.7-12.2) 11/24/15 14:10 INR 1.0 11/24/15 14:10 APTT 25 SECONDS (21-34) 11/24/15 14:10 - Constitutional Appears: No Acute Distress, Chronically Ill - Head Exam Head Exam: NORMAL INSPECTION - Eye Exam Eye Exam: PERRL - ENT Exam ENT Exam: Mucous Membranes Moist - Neck Exam Additional comments: Trach collar in place with no erythema/swelling/blood. - Respiratory Exam Respiratory Exam: Clear to Ausculation Bilateral. absent: Respiratory Distress Additional comments: pt on ventilator - Cardiovascular Exam Cardiovascular Exam: REGULAR RHYTHM, +S1, +S2 - GI/Abdominal Exam Additional comments: PEG tube in place, covered in dressing, clean and dry, no surrounding erythema/ swelling - Back Exam Additional comments: heel air boots bilateral LE - Neurological Exam Additional comments: nonverbal, does not respond to tactile/verbal stimuli - Skin Skin Exam: Dry, Normal Color Assessment and Plan - Assessment and Plan (Free Text) Assessment: (1) Anoxic encephalopathy No acute change in mental status PEG tube operational, continue tube feedings @ 50cc/hr nightly Labs on Mondays and . Lab work reviewed 03/31/16 and within normal limits. PEG tube placed at bedside by Dr. Chan on 11/27/15 Pending placement (2) Respiratory Failure Trach collar in place. Monitor site for infection/inflammation. WBC 03/31/16 within normal limits. 02/12 CXR: Linear atelectasis at the bases. Cardiomegaly. ID on case - Dr. Armstrong Sputum culture 12/06 + pseudomonas: probably colonization. No antibiotics per Dr. Armstrong tracheostomy with tube change by Dr. Chan on 11/27/15 (3) UTI Chronic WBC 5/2 within normal limits, afebrile Yoo in place, no sign of leakage. Ditropan 5mg PEG TID for leakage around catheter. Continue to monitor vital signs and wbc count (4) CAD (coronary artery disease) Cardiac stents on 06/13/15. Continue Lisinopril 5mg PO daily Continue Plavix 75mg PO daily Continue ASA 325mg PO daily (5) Seizures Continue dilantin 100mg PEG TID Seizure precautions. (6) Bed sore Healed. continue [facility] as [facility] Sacral ulcer Stage II 0.5cm x 1.5cm- Healed. Continue repositioning of patient q2H. dolphin mattress. Heel air boots. (7) Prophylactic measure Lovenox 40 SC daily Pepcid 20 mg PO BID [facility] <Stepan,Donnell M - Last Filed: 04/05/16 07:32> Objective - Vital Signs/Intake and Output Vital Signs (last 24 hours): Temp Pulse Resp BP Pulse Ox 98.3 F 86 20 131/81 99 04/04/16 23:41 04/04/16 23:41 04/04/16 23:41 04/04/16 23:41 04/04/16 23:41 Intake and Output: 04/05/16 04/05/16 06:59 18:59 Intake Total 750 Output Total 1000 Balance -250 - Medications Medications: Current Medications Aspirin (Aspirin) 325 mg PO DAILY [facility] Last Admin: 04/04/16 09:15 Dose: 325 mg Clopidogrel Bisulfate (Plavix) 75 mg PO DAILY [facility] Stop: 05/22/16 23:59 Last Admin: 04/04/16 09:15 Dose: 75 mg Enoxaparin Sodium (Lovenox) 40 mg SC DAILY [facility] Last Admin: 04/04/16 09:16 Dose: 40 mg Famotidine (Pepcid) 20 mg PO BID [facility] Last Admin: 04/04/16 17:39 Dose: 20 mg Lisinopril (Zestril) 5 mg PO DAILY [facility] Last Admin: 04/04/16 09:15 Dose: 5 mg Mupirocin (Bactroban Ointment) 0 gm TOP DAILY [facility] Last Admin: 04/04/16 09:19 Dose: 1 applic Oxybutynin Chloride (Ditropan Tab) 5 mg PO TID [facility] Last Admin: 04/04/16 17:39 Dose: 5 mg Phenytoin (Dilantin) 100 mg PEG TID [facility] Last Admin: 04/04/16 17:39 Dose: 100 mg - Labs Labs: 04/03/16 08:12 04/03/16 08:12 PT 10.6 SECONDS (9.7-12.2) 11/24/15 14:10 INR 1.0 11/24/15 14:10 APTT 25 SECONDS (21-34) 11/24/15 14:10 Attending/Attestation - Attestation I have personally seen and examined this patient.: Yes I have fully participated in the care of the patient.: Yes I have reviewed all pertinent clinical information, including history, physical exam and plan: Yes Notes (Text): 04/05/16 07:32 Patient was seen and examined at bedside with the resident. No change in clinical condition. Turn and position every 2 hours. Continue current management.
[2016-04-04] MEDS: Phenytoin 100 mg/4 ml Oral Susp UD PEG SCH ×3 (09:15→17:39)
[2016-04-04] MEDS: Enoxaparin 40 mg Syringe SC SCH (09:16)
--- NOTE | 2016-04-05 00:48 | CP.PCM.PN ---
<Sandra Mercedes - Last Filed: 04/05/16 07:42> Subjective - Date & Time of Evaluation Date of Evaluation: 04/05/16 Time of Evaluation: 07:35 - Subjective Subjective: Medicine Note Pt seen and examined. No acute events as per nursing. Unable to ROS. Pt has baker and PEG in place. Trach collar in place. Pt is being repositioned very 2 hours. Pt opens eyes to painful stimuli. Objective - Vital Signs/Intake and Output Vital Signs (last 24 hours): Temp Pulse Resp BP Pulse Ox 98.3 F 86 20 131/81 99 04/04/16 23:41 04/04/16 23:41 04/04/16 23:41 04/04/16 23:41 04/04/16 23:41 Intake and Output: 04/04/16 04/05/16 18:59 06:59 Intake Total 700 750 Output Total 600 1000 Balance 100 -250 - Medications Medications: Current Medications Aspirin (Aspirin) 325 mg PO DAILY [facility] Last Admin: 04/04/16 09:15 Dose: 325 mg Clopidogrel Bisulfate (Plavix) 75 mg PO DAILY [facility] Stop: 05/22/16 23:59 Last Admin: 04/04/16 09:15 Dose: 75 mg Enoxaparin Sodium (Lovenox) 40 mg SC DAILY [facility] Last Admin: 04/04/16 09:16 Dose: 40 mg Famotidine (Pepcid) 20 mg PO BID [facility] Last Admin: 04/04/16 17:39 Dose: 20 mg Lisinopril (Zestril) 5 mg PO DAILY [facility] Last Admin: 04/04/16 09:15 Dose: 5 mg Mupirocin (Bactroban Ointment) 0 gm TOP DAILY [facility] Last Admin: 04/04/16 09:19 Dose: 1 applic Oxybutynin Chloride (Ditropan Tab) 5 mg PO TID [facility] Last Admin: 04/04/16 17:39 Dose: 5 mg Phenytoin (Dilantin) 100 mg PEG TID [facility] Last Admin: 04/04/16 17:39 Dose: 100 mg - Labs Labs: 04/03/16 08:12 04/03/16 08:12 PT 10.6 SECONDS (9.7-12.2) 11/24/15 14:10 INR 1.0 11/24/15 14:10 APTT 25 SECONDS (21-34) 11/24/15 14:10 - Constitutional Appears: Non-toxic, No Acute Distress, Chronically Ill - Head Exam Head Exam: NORMAL INSPECTION, NORMOCEPHALIC - Eye Exam Eye Exam: Normal appearance Pupil Exam: Fixed - ENT Exam ENT Exam: Mucous Membranes Moist Additional comments: trach collar - Respiratory Exam Respiratory Exam: Clear to Ausculation Bilateral, NORMAL BREATHING PATTERN - Cardiovascular Exam Cardiovascular Exam: REGULAR RHYTHM, +S1, +S2 - GI/Abdominal Exam GI & Abdominal Exam: Soft, Normal Bowel Sounds Additional comments: PEG tube in place - Extremities Exam Extremities Exam: Normal Inspection - Skin Skin Exam: Dry, Normal Color Assessment and Plan - Assessment and Plan (Free Text) Assessment: (1) Anoxic encephalopathy No acute change in mental status PEG tube operational, continue tube feedings @ 50cc/hr nightly Labs on Mondays and . Lab work reviewed 04/03/16 and within normal limits. PEG tube placed at bedside by Dr. Chan on 11/27/15 Pending placement (2) Respiratory Failure Trach collar in place. Monitor site for infection/inflammation. WBC 04/03/16 within normal limits. 02/12 CXR: Linear atelectasis at the bases. Cardiomegaly. ID on case - Dr. Armstrong Sputum culture 12/06 + pseudomonas: probably colonization. No antibiotics per Dr. Armstrong tracheostomy with tube change by Dr. Chan on 11/27/15 (3) UTI Chronic WBC 04/03 within normal limits, afebrile Baker in place, no sign of leakage. Ditropan 5mg PEG TID for leakage around catheter. Continue to monitor vital signs and wbc count (4) CAD (coronary artery disease) Cardiac stents on 06/13/15. Continue Lisinopril 5mg PO daily Continue Plavix 75mg PO daily Continue ASA 325mg PO daily (5) Seizures Continue dilantin 100mg PEG TID Seizure precautions. (6) Bed sore Healed. continue wound care as needed, [facility], and [facility] Sacral ulcer Stage II 0.5cm x 1.5cm- Healed. Continue repositioning of patient q2H. dolphin mattress. Heel air boots. (7) Prophylactic measure Lovenox 40 SC daily Pepcid 20 mg PO BID [facility] <Stepan,Donnell M - Last Filed: 04/05/16 17:30> Objective - Vital Signs/Intake and Output Vital Signs (last 24 hours): Temp Pulse Resp BP Pulse Ox 98.5 F 68 20 107/68 100 04/05/16 16:12 04/05/16 16:12 04/05/16 16:12 04/05/16 16:12 04/05/16 16:12 Intake and Output: 04/05/16 04/05/16 06:59 18:59 Intake Total 1450 50 Output Total 1450 1000 Balance 0 -950 - Medications Medications: Current Medications Aspirin (Aspirin) 325 mg PO DAILY [facility] Last Admin: 04/05/16 09:58 Dose: 325 mg Clopidogrel Bisulfate (Plavix) 75 mg PO DAILY [facility] Stop: 05/22/16 23:59 Last Admin: 04/05/16 09:59 Dose: 75 mg Enoxaparin Sodium (Lovenox) 40 mg SC DAILY [facility] Last Admin: 04/05/16 09:59 Dose: 40 mg Famotidine (Pepcid) 20 mg PO BID [facility] Last Admin: 04/05/16 09:59 Dose: 20 mg Lisinopril (Zestril) 5 mg PO DAILY [facility] Last Admin: 04/05/16 09:58 Dose: 5 mg Mupirocin (Bactroban Ointment) 0 gm TOP DAILY [facility] Last Admin: 04/05/16 09:59 Dose: 1 applic Oxybutynin Chloride (Ditropan Tab) 5 mg PO TID [facility] Last Admin: 04/05/16 13:41 Dose: 5 mg Phenytoin (Dilantin) 100 mg PEG TID [facility] Last Admin: 04/05/16 13:41 Dose: 100 mg - Labs Labs: 04/03/16 08:12 04/03/16 08:12 PT 10.6 SECONDS (9.7-12.2) 11/24/15 14:10 INR 1.0 11/24/15 14:10 APTT 25 SECONDS (21-34) 11/24/15 14:10 Attending/Attestation - Attestation I have personally seen and examined this patient.: Yes I have fully participated in the care of the patient.: Yes I have reviewed all pertinent clinical information, including history, physical exam and plan: Yes Notes (Text): 04/05/16 17:28 Patient seen and examined at bedside. No change in clinical condition. Continue to monitor trach and PEG sites. Turn and position every 2 hours.
[2016-04-05] MEDS: Phenytoin 100 mg/4 ml Oral Susp UD PEG SCH ×3 (09:58→17:31)
[2016-04-05] MEDS: Enoxaparin 40 mg Syringe SC SCH (09:59)
--- NOTE | 2016-04-06 02:11 | CP.PCM.PN ---
<Sandra Mercedes - Last Filed: 04/06/16 07:41> Subjective - Date & Time of Evaluation Date of Evaluation: 04/06/16 Time of Evaluation: 06:30 - Subjective Subjective: Medicine Note Pt seen and examined. Pt continues to be altered. No acute events as per nursing. Pt has a trach collar in place and PEG and baker in place. Sites are clean and dry. Pt has been afebrile. Objective - Vital Signs/Intake and Output Vital Signs (last 24 hours): Temp Pulse Resp BP Pulse Ox 98.5 F 79 20 104/67 100 04/06/16 00:00 04/06/16 00:00 04/06/16 00:00 04/06/16 00:00 04/06/16 00:00 Intake and Output: 04/05/16 04/06/16 18:59 06:59 Intake Total 50 750 Output Total 1000 400 Balance -950 350 - Medications Medications: Current Medications Aspirin (Aspirin) 325 mg PO DAILY [facility] Last Admin: 04/05/16 09:58 Dose: 325 mg Clopidogrel Bisulfate (Plavix) 75 mg PO DAILY [facility] Stop: 05/22/16 23:59 Last Admin: 04/05/16 09:59 Dose: 75 mg Enoxaparin Sodium (Lovenox) 40 mg SC DAILY [facility] Last Admin: 04/05/16 09:59 Dose: 40 mg Famotidine (Pepcid) 20 mg PO BID [facility] Last Admin: 04/05/16 17:31 Dose: 20 mg Lisinopril (Zestril) 5 mg PO DAILY [facility] Last Admin: 04/05/16 09:58 Dose: 5 mg Mupirocin (Bactroban Ointment) 0 gm TOP DAILY [facility] Last Admin: 04/05/16 09:59 Dose: 1 applic Oxybutynin Chloride (Ditropan Tab) 5 mg PO TID [facility] Last Admin: 04/05/16 17:31 Dose: 5 mg Phenytoin (Dilantin) 100 mg PEG TID [facility] Last Admin: 04/05/16 17:31 Dose: 100 mg - Labs Labs: 04/03/16 08:12 04/03/16 08:12 PT 10.6 SECONDS (9.7-12.2) 11/24/15 14:10 INR 1.0 11/24/15 14:10 APTT 25 SECONDS (21-34) 11/24/15 14:10 - Constitutional Appears: Non-toxic, Chronically Ill - Head Exam Head Exam: NORMAL INSPECTION, NORMOCEPHALIC - Eye Exam Eye Exam: EOMI Pupil Exam: PERRL - ENT Exam ENT Exam: Mucous Membranes Moist - Respiratory Exam Respiratory Exam: Clear to Ausculation Bilateral, NORMAL BREATHING PATTERN Additional comments: trach collar - Cardiovascular Exam Cardiovascular Exam: REGULAR RHYTHM, +S1, +S2 - GI/Abdominal Exam GI & Abdominal Exam: Soft, Normal Bowel Sounds Additional comments: PEG tube - Extremities Exam Extremities Exam: absent: Pedal Edema - Skin Skin Exam: Dry, Normal Color Assessment and Plan - Assessment and Plan (Free Text) Assessment: (1) Anoxic encephalopathy No acute change in mental status PEG tube operational, continue tube feedings @ 50cc/hr nightly Labs on Mondays and . Lab work reviewed 04/03/16 and within normal limits. PEG tube placed at bedside by Dr. Chan on 11/27/15 Pending placement (2) Respiratory Failure Trach collar in place. Monitor site for infection/inflammation. WBC 04/03/16 within normal limits. 02/12 CXR: Linear atelectasis at the bases. Cardiomegaly. ID on case - Dr. Armstrong Sputum culture 12/06 + pseudomonas: probably colonization. No antibiotics per Dr. Armstrong tracheostomy with tube change by Dr. Chan on 11/27/15 (3) UTI Chronic WBC 04/03 within normal limits, afebrile Baker in place, no sign of leakage. Ditropan 5mg PEG TID for leakage around catheter. Continue to monitor vital signs and wbc count (4) CAD (coronary artery disease) Cardiac stents on 06/13/15. Continue Lisinopril 5mg PO daily Continue Plavix 75mg PO daily Continue ASA 325mg PO daily (5) Seizures Continue dilantin 100mg PEG TID Seizure precautions. (6) Bed sore Healed. continue wound care as needed, [facility], and [facility] Sacral ulcer Stage II 0.5cm x 1.5cm- Healed. Continue repositioning of patient q2H. dolphin mattress. Heel air boots. (7) Prophylactic measure Lovenox 40 SC daily Pepcid 20 mg PO BID [facility] <Stepan,Donnell M - Last Filed: 04/06/16 14:04> Objective - Vital Signs/Intake and Output Vital Signs (last 24 hours): Temp Pulse Resp BP Pulse Ox 98 F 89 20 121/85 98 04/06/16 07:33 04/06/16 07:33 04/06/16 07:33 04/06/16 07:33 04/06/16 07:33 Intake and Output: 04/06/16 04/06/16 06:59 18:59 Intake Total 1450 Output Total 900 Balance 550 - Medications Medications: Current Medications Aspirin (Aspirin) 325 mg PO DAILY [facility] Last Admin: 04/06/16 09:38 Dose: 325 mg Clopidogrel Bisulfate (Plavix) 75 mg PO DAILY [facility] Stop: 05/22/16 23:59 Last Admin: 04/06/16 09:38 Dose: 75 mg Enoxaparin Sodium (Lovenox) 40 mg SC DAILY [facility] Last Admin: 04/06/16 09:39 Dose: 40 mg Famotidine (Pepcid) 20 mg PO BID [facility] Last Admin: 04/06/16 09:38 Dose: 20 mg Lisinopril (Zestril) 5 mg PO DAILY [facility] Last Admin: 04/06/16 09:38 Dose: 5 mg Mupirocin (Bactroban Ointment) 0 gm TOP DAILY [facility] Last Admin: 04/06/16 09:41 Dose: 1 applic Oxybutynin Chloride (Ditropan Tab) 5 mg PO TID [facility] Last Admin: 04/06/16 13:59 Dose: 5 mg Phenytoin (Dilantin) 100 mg PEG TID [facility] Last Admin: 04/06/16 13:56 Dose: 100 mg - Labs Labs: 04/03/16 08:12 04/03/16 08:12 PT 10.6 SECONDS (9.7-12.2) 11/24/15 14:10 INR 1.0 11/24/15 14:10 APTT 25 SECONDS (21-34) 11/24/15 14:10 Attending/Attestation - Attestation I have personally seen and examined this patient.: Yes I have fully participated in the care of the patient.: Yes I have reviewed all pertinent clinical information, including history, physical exam and plan: Yes Notes (Text): 04/06/16 14:04 Patient seen and examined at bedside. No change in clinical condition. Discussed with nursing staff . Patient would need frequent suctioning. Continue care of tracheostomy and PEG site. Continue to turn and position every 2 hours.
[2016-04-06] MEDS: Phenytoin 100 mg/4 ml Oral Susp UD PEG SCH ×3 (09:38→18:02)
[2016-04-06] MEDS: Enoxaparin 40 mg Syringe SC SCH (09:39)
[2016-04-07] MEDS: Phenytoin 100 mg/4 ml Oral Susp UD PEG SCH ×3 (10:49→17:50)
[2016-04-07] MEDS: Enoxaparin 40 mg Syringe SC SCH (10:49)
--- NOTE | 2016-04-07 14:46 | CP.PCM.PN ---
<Merrick Heck - Last Filed: 04/07/16 14:42> Subjective - Date & Time of Evaluation Date of Evaluation: 04/07/16 Time of Evaluation: 10:20 - Subjective Subjective: Medicine pgy2 note Patient seen and examined at bedside this AM. Patient lying in bed with eyes spontaneously opening - history unable to obtain [id number] to aphasia from anoxic encephalopathic injury. No acute events overnight per nursing . Objective - Vital Signs/Intake and Output Vital Signs (last 24 hours): Temp Pulse Resp BP Pulse Ox 98.2 F 86 20 116/85 98 04/07/16 08:00 04/07/16 08:00 04/07/16 08:00 04/07/16 08:00 04/07/16 08:00 Intake and Output: 04/07/16 04/07/16 06:59 18:59 Intake Total 1200 Output Total 1000 Balance 200 - Medications Medications: Current Medications Aspirin (Aspirin) 325 mg PO DAILY [facility] Last Admin: 04/07/16 10:48 Dose: 325 mg Clopidogrel Bisulfate (Plavix) 75 mg PO DAILY [facility] Stop: 05/22/16 23:59 Last Admin: 04/07/16 10:48 Dose: 75 mg Enoxaparin Sodium (Lovenox) 40 mg SC DAILY [facility] Last Admin: 04/07/16 10:49 Dose: 40 mg Famotidine (Pepcid) 20 mg PO BID [facility] Last Admin: 04/07/16 10:49 Dose: 20 mg Lisinopril (Zestril) 5 mg PO DAILY [facility] Last Admin: 04/07/16 10:49 Dose: 5 mg Mupirocin (Bactroban Ointment) 0 gm TOP DAILY [facility] Last Admin: 04/07/16 11:47 Dose: 1 applic Oxybutynin Chloride (Ditropan Tab) 5 mg PO TID [facility] Last Admin: 04/07/16 10:49 Dose: Not Given Phenytoin (Dilantin) 100 mg PEG TID [facility] Last Admin: 04/07/16 10:49 Dose: 100 mg - Labs Labs: 04/03/16 08:12 04/03/16 08:12 PT 10.6 SECONDS (9.7-12.2) 11/24/15 14:10 INR 1.0 11/24/15 14:10 APTT 25 SECONDS (21-34) 11/24/15 14:10 - Constitutional Appears: No Acute Distress, Chronically Ill - Head Exam Head Exam: NORMOCEPHALIC - Eye Exam Eye Exam: PERRL - ENT Exam ENT Exam: Mucous Membranes Moist - Neck Exam Additional comments: trach collar in place, working - Respiratory Exam Respiratory Exam: NORMAL BREATHING PATTERN. absent: Wheezes Additional comments: mild bibasilar crackles - Cardiovascular Exam Cardiovascular Exam: REGULAR RHYTHM, +S1, +S2 Assessment and Plan - Assessment and Plan (Free Text) Assessment: (1) Anoxic encephalopathy No acute change in mental status PEG tube operational, continue tube feedings @ 50cc/hr nightly Labs on Mondays and . Lab work reviewed 04/03/16 and within normal limits. PEG tube placed at bedside by Dr. Chan on 11/27/15 Pending placement (2) Respiratory Failure Trach collar in place. Monitor site for infection/inflammation. WBC 04/03/16 within normal limits. f/u repeat labs 02/12 CXR: Linear atelectasis at the bases. Cardiomegaly. ID on case - Dr. Armstrong Sputum culture 12/06 + pseudomonas: probably colonization. No antibiotics per Dr. Armstrong tracheostomy with tube change by Dr. Chan on 11/27/15 (3) UTI Chronic WBC 04/03 within normal limits, afebrile Yoo in place, no sign of leakage. Ditropan 5mg PEG TID for leakage around catheter. Continue to monitor vital signs and wbc count (4) CAD (coronary artery disease) Cardiac stents on 06/13/15. Continue Lisinopril 5mg PO daily Continue Plavix 75mg PO daily Continue ASA 325mg PO daily (5) Seizures Continue dilantin 100mg PEG TID Seizure precautions. (6) Bed sore Healed. continue wound care as needed, sensicare, and medihoney Sacral ulcer Stage II 0.5cm x 1.5cm- Healed. Continue repositioning of patient q2H. dolphin mattress. Heel air boots. (7) Prophylactic measure Lovenox 40 SC daily Pepcid 20 mg PO BID [facility] <Rashel Rodrigues - Last Filed: 04/07/16 17:51> Objective - Vital Signs/Intake and Output Vital Signs (last 24 hours): Temp Pulse Resp BP Pulse Ox 98.2 F 86 20 116/85 98 04/07/16 08:00 04/07/16 17:02 04/07/16 08:00 04/07/16 08:00 04/07/16 08:00 Intake and Output: 04/07/16 04/07/16 06:59 18:59 Intake Total 1200 650 Output Total 1000 600 Balance 200 50 - Medications Medications: Current Medications Aspirin (Aspirin) 325 mg PO DAILY [facility] Last Admin: 04/07/16 10:48 Dose: 325 mg Clopidogrel Bisulfate (Plavix) 75 mg PO DAILY [facility] Stop: 05/22/16 23:59 Last Admin: 04/07/16 10:48 Dose: 75 mg Enoxaparin Sodium (Lovenox) 40 mg SC DAILY [facility] Last Admin: 04/07/16 10:49 Dose: 40 mg Famotidine (Pepcid) 20 mg PO BID [facility] Last Admin: 04/07/16 17:49 Dose: 20 mg Lisinopril (Zestril) 5 mg PO DAILY [facility] Last Admin: 04/07/16 10:49 Dose: 5 mg Mupirocin (Bactroban Ointment) 0 gm TOP DAILY [facility] Last Admin: 04/07/16 11:47 Dose: 1 applic Oxybutynin Chloride (Ditropan Tab) 5 mg PO TID [facility] Last Admin: 04/07/16 17:50 Dose: 5 mg Phenytoin (Dilantin) 100 mg PEG TID [facility] Last Admin: 04/07/16 17:50 Dose: 100 mg - Labs Labs: 04/03/16 08:12 04/03/16 08:12 PT 10.6 SECONDS (9.7-12.2) 11/24/15 14:10 INR 1.0 11/24/15 14:10 APTT 25 SECONDS (21-34) 11/24/15 14:10 Attending/Attestation - Attestation I have personally seen and examined this patient.: Yes I have fully participated in the care of the patient.: Yes I have reviewed all pertinent clinical information, including history, physical exam and plan: Yes Notes (Text): 04/07/16 17:50 Patient was seen and examined during the round with the resident. no new events pt is awake, eyes open, no acute respo distress, cont supportive care for Peg, Trach, Yoo's no family at the bedside.
[2016-04-08 07:53] LABS: HEMOGLOBIN 12.3 g/dL (12.0-18.0); MEAN CELL VOLUME 91.6 fL (80.0-94.0); MEAN CORPUSCULAR HEMOGLOBIN 30.5 pg (27.0-31.0); MEAN CORPUSCULAR HGB CONC 33.3 g/dL (33.0-37.0); MEAN PLATELET VOLUME 8.8 fL (7.2-11.7); RBC 4.03 Mil/uL (4.40-5.90); RED CELL DISTRIBUTION WIDTH 14.8 % (11.5-14.5); WHITE BLOOD COUNT 7.5 K/uL (4.8-10.8)
[2016-04-08 08:12] LABS: BLOOD UREA NITROGEN 23 mg/dL (9-20); CALCIUM 8.7 mg/dl (8.6-10.4); GFR NON-AFRICAN AMERICAN > 60
[2016-04-08] MEDS: Enoxaparin 40 mg Syringe SC SCH (09:38)
[2016-04-08] MEDS: Phenytoin 100 mg/4 ml Oral Susp UD PEG SCH ×3 (09:38→17:19)
--- NOTE | 2016-04-08 09:46 | CP.PCM.PN ---
<Rashel Rodrigues - Last Filed: 04/08/16 13:32> Objective - Vital Signs/Intake and Output Vital Signs (last 24 hours): Temp Pulse Resp BP Pulse Ox 98.9 F 97 H 20 103/67 100 04/08/16 07:56 04/08/16 07:56 04/08/16 07:56 04/08/16 07:56 04/08/16 07:56 Intake and Output: 04/08/16 04/08/16 06:59 18:59 Intake Total 1250 Output Total 650 250 Balance 600 -250 - Medications Medications: Current Medications Aspirin (Aspirin) 325 mg PO DAILY [facility] Last Admin: 04/08/16 09:38 Dose: 325 mg Clopidogrel Bisulfate (Plavix) 75 mg PO DAILY [facility] Stop: 05/22/16 23:59 Last Admin: 04/08/16 09:38 Dose: 75 mg Enoxaparin Sodium (Lovenox) 40 mg SC DAILY [facility] Last Admin: 04/08/16 09:38 Dose: 40 mg Famotidine (Pepcid) 20 mg PO BID [facility] Last Admin: 04/08/16 09:38 Dose: 20 mg Lisinopril (Zestril) 5 mg PO DAILY [facility] Last Admin: 04/08/16 09:38 Dose: 5 mg Mupirocin (Bactroban Ointment) 0 gm TOP DAILY [facility] Last Admin: 04/08/16 09:38 Dose: 1 applic Oxybutynin Chloride (Ditropan Tab) 5 mg PO TID [facility] Last Admin: 04/08/16 09:38 Dose: 5 mg Phenytoin (Dilantin) 100 mg PEG TID [facility] Last Admin: 04/08/16 09:38 Dose: 100 mg - Labs Labs: 04/08/16 07:45 04/08/16 07:45 PT 10.6 SECONDS (9.7-12.2) 11/24/15 14:10 INR 1.0 11/24/15 14:10 APTT 25 SECONDS (21-34) 11/24/15 14:10 Attending/Attestation - Attestation I have personally seen and examined this patient.: Yes I have fully participated in the care of the patient.: Yes I have reviewed all pertinent clinical information, including history, physical exam and plan: Yes Notes (Text): 04/08/16 13:34 Patient was seen and examined during the round with the resident. no new events cont supportive mx including Trach care, Yoo's, Peg tube care, bed sore prevention, DVT prophylactics <Saba Ennis - Last Filed: 04/08/16 16:48> Subjective - Date & Time of Evaluation Date of Evaluation: 04/08/16 Time of Evaluation: 09:45 - Subjective Subjective: Patient seen and examined this morning. History and ROS unobtainable as patient is aphasic from anoxic brain injury. No acute overnight events reports per nursing. Objective - Vital Signs/Intake and Output Vital Signs (last 24 hours): Temp Pulse Resp BP Pulse Ox 98.9 F 97 H 20 103/67 100 04/08/16 07:56 04/08/16 07:56 04/08/16 07:56 04/08/16 07:56 04/08/16 07:56 Intake and Output: 04/08/16 04/08/16 06:59 18:59 Intake Total 1250 Output Total 650 250 Balance 600 -250 - Medications Medications: Current Medications Aspirin (Aspirin) 325 mg PO DAILY [facility] Last Admin: 04/08/16 09:38 Dose: 325 mg Clopidogrel Bisulfate (Plavix) 75 mg PO DAILY [facility] Stop: 05/22/16 23:59 Last Admin: 04/08/16 09:38 Dose: 75 mg Enoxaparin Sodium (Lovenox) 40 mg SC DAILY [facility] Last Admin: 04/08/16 09:38 Dose: 40 mg Famotidine (Pepcid) 20 mg PO BID [facility] Last Admin: 04/08/16 09:38 Dose: 20 mg Lisinopril (Zestril) 5 mg PO DAILY [facility] Last Admin: 04/08/16 09:38 Dose: 5 mg Mupirocin (Bactroban Ointment) 0 gm TOP DAILY [facility] Last Admin: 04/08/16 09:38 Dose: 1 applic Oxybutynin Chloride (Ditropan Tab) 5 mg PO TID [facility] Last Admin: 04/08/16 09:38 Dose: 5 mg Phenytoin (Dilantin) 100 mg PEG TID [facility] Last Admin: 04/08/16 09:38 Dose: 100 mg - Labs Labs: 04/08/16 07:45 04/08/16 07:45 PT 10.6 SECONDS (9.7-12.2) 11/24/15 14:10 INR 1.0 11/24/15 14:10 APTT 25 SECONDS (21-34) 11/24/15 14:10 - Constitutional Appears: Non-toxic, Chronically Ill - Head Exam Head Exam: NORMOCEPHALIC - Eye Exam Pupil Exam: PERRL - ENT Exam ENT Exam: Mucous Membranes Moist - Neck Exam Additional comments: trach collar with mild thick secretions, no surrounding cellulitis - Respiratory Exam Respiratory Exam: Decreased Breath Sounds, NORMAL BREATHING PATTERN. absent: Respiratory Distress - Cardiovascular Exam Cardiovascular Exam: RRR, +S1, +S2 - GI/Abdominal Exam Additional comments: PEG tube site noninfected Assessment and Plan - Assessment and Plan (Free Text) Assessment: (1) Anoxic encephalopathy No acute change in mental status PEG tube operational, continue tube feedings @ 50cc/hr nightly Labs on Mondays and . Lab work reviewed 04/03/16 and within normal limits. PEG tube placed at bedside by Dr. Chan on 11/27/15 Pending placement (2) Respiratory Failure Trach collar in place. Monitor site for infection/inflammation. Suction prn. WBC 04/03/16 within normal limits. f/u repeat labs 02/12 CXR: Linear atelectasis at the bases. Cardiomegaly. ID on case - Dr. Armstrong Sputum culture 12/06 + pseudomonas: probably colonization. No antibiotics per Dr. Armstrong tracheostomy with tube change by Dr. Chan on 11/27/15 (3) UTI Chronic WBC 04/08 within normal limits, afebrile Yoo in place, no sign of leakage. Ditropan 5mg PEG TID for leakage around catheter. Continue to monitor vital signs and wbc count (4) CAD (coronary artery disease) Cardiac stents on 06/13/15. Continue Lisinopril 5mg PO daily Continue Plavix 75mg PO daily Continue ASA 325mg PO daily (5) Seizures Continue dilantin 100mg PEG TID Seizure precautions. (6) Bed sore Healed. continue wound care as needed, sensicare, and medihoney Sacral ulcer Stage II 0.5cm x 1.5cm- Healed. Continue repositioning of patient q2H. dolphin mattress. Heel air boots. (7) Prophylactic measure Lovenox 40 SC daily Pepcid 20 mg PO BID [facility]
[2016-04-09] MEDS: Phenytoin 100 mg/4 ml Oral Susp UD PEG SCH ×3 (10:58→18:59)
--- NOTE | 2016-04-09 16:55 | CP.PCM.PN ---
<Merrick Heck - Last Filed: 04/09/16 16:53> Subjective - Date & Time of Evaluation Date of Evaluation: 04/09/16 Time of Evaluation: 10:20 - Subjective Subjective: Medicine pgy2 note Patient seen and examined at bedside this AM. No acute changes per nursing - Patient lying in bed with eyes spontaneously opening. trach collar and peg tube in place. Continue with current management. Objective - Vital Signs/Intake and Output Vital Signs (last 24 hours): Temp Pulse Resp BP Pulse Ox 98.5 F 85 20 114/80 99 04/09/16 16:33 04/09/16 16:33 04/09/16 16:33 04/09/16 16:33 04/09/16 16:33 Intake and Output: 04/09/16 04/09/16 06:59 18:59 Intake Total 750 1380 Output Total 650 1200 Balance 100 180 - Medications Medications: Current Medications Aspirin (Aspirin) 325 mg PO DAILY [facility] Last Admin: 04/09/16 10:58 Dose: 325 mg Clopidogrel Bisulfate (Plavix) 75 mg PO DAILY [facility] Stop: 05/22/16 23:59 Last Admin: 04/09/16 10:58 Dose: 75 mg Famotidine (Pepcid) 20 mg PO BID [facility] Last Admin: 04/09/16 10:58 Dose: 20 mg Lisinopril (Zestril) 5 mg PO DAILY [facility] Last Admin: 04/09/16 10:58 Dose: 5 mg Mupirocin (Bactroban Ointment) 0 gm TOP DAILY [facility] Last Admin: 04/09/16 10:59 Dose: 1 applic Oxybutynin Chloride (Ditropan Tab) 5 mg PO TID [facility] Last Admin: 04/09/16 14:46 Dose: 5 mg Phenytoin (Dilantin) 100 mg PEG TID [facility] Last Admin: 04/09/16 14:46 Dose: 100 mg - Labs Labs: 04/08/16 07:45 04/08/16 07:45 PT 10.6 SECONDS (9.7-12.2) 11/24/15 14:10 INR 1.0 11/24/15 14:10 APTT 25 SECONDS (21-34) 11/24/15 14:10 - Constitutional Appears: Chronically Ill - Eye Exam Eye Exam: Normal appearance - ENT Exam ENT Exam: Mucous Membranes Moist, Normal Oropharynx - Respiratory Exam Respiratory Exam: NORMAL BREATHING PATTERN Additional comments: on vent - Cardiovascular Exam Cardiovascular Exam: RRR, +S1, +S2 - GI/Abdominal Exam GI & Abdominal Exam: Normal Bowel Sounds (PEG tube in place) Assessment and Plan - Assessment and Plan (Free Text) Assessment: (1) Anoxic encephalopathy No acute change in mental status PEG tube operational, continue tube feedings @ 50cc/hr nightly Labs on Mondays and . Lab work reviewed 04/03/16 and within normal limits. PEG tube placed at bedside by Dr. Chan on 11/27/15 Pending placement (2) Respiratory Failure Trach collar in place. Monitor site for infection/inflammation. Suction prn. WBC 04/03/16 within normal limits. f/u repeat labs 02/12 CXR: Linear atelectasis at the bases. Cardiomegaly. ID on case - Dr. Armstrong Sputum culture 12/06 + pseudomonas: probably colonization. No antibiotics per Dr. Armstrong tracheostomy with tube change by Dr. Chan on 11/27/15 (3) UTI Chronic WBC 04/08 within normal limits, afebrile Yoo in place, no sign of leakage. Ditropan 5mg PEG TID for leakage around catheter. Continue to monitor vital signs and wbc count (4) CAD (coronary artery disease) Cardiac stents on 06/13/15. Continue Lisinopril 5mg PO daily Continue Plavix 75mg PO daily Continue ASA 325mg PO daily (5) Seizures Continue dilantin 100mg PEG TID Seizure precautions. (6) Bed sore Healed. continue wound care as needed, sensicare, and medihoney Sacral ulcer Stage II 0.5cm x 1.5cm- Healed. Continue repositioning of patient q2H. dolphin mattress. Heel air boots. (7) Prophylactic measure Lovenox 40 SC daily Pepcid 20 mg PO BID [facility] <Rashel Rodrigues - Last Filed: 04/09/16 18:52> Objective - Vital Signs/Intake and Output Vital Signs (last 24 hours): Temp Pulse Resp BP Pulse Ox 98.5 F 85 20 114/80 99 04/09/16 16:33 04/09/16 16:33 04/09/16 16:33 04/09/16 16:33 04/09/16 16:33 Intake and Output: 04/09/16 04/09/16 06:59 18:59 Intake Total 750 1380 Output Total 650 1200 Balance 100 180 - Medications Medications: Current Medications Aspirin (Aspirin) 325 mg PO DAILY [facility] Last Admin: 04/09/16 10:58 Dose: 325 mg Clopidogrel Bisulfate (Plavix) 75 mg PO DAILY [facility] Stop: 05/22/16 23:59 Last Admin: 04/09/16 10:58 Dose: 75 mg Famotidine (Pepcid) 20 mg PO BID [facility] Last Admin: 04/09/16 10:58 Dose: 20 mg Lisinopril (Zestril) 5 mg PO DAILY [facility] Last Admin: 04/09/16 10:58 Dose: 5 mg Mupirocin (Bactroban Ointment) 0 gm TOP DAILY [facility] Last Admin: 04/09/16 10:59 Dose: 1 applic Oxybutynin Chloride (Ditropan Tab) 5 mg PO TID [facility] Last Admin: 04/09/16 14:46 Dose: 5 mg Phenytoin (Dilantin) 100 mg PEG TID [facility] Last Admin: 04/09/16 14:46 Dose: 100 mg - Labs Labs: 04/08/16 07:45 04/08/16 07:45 PT 10.6 SECONDS (9.7-12.2) 11/24/15 14:10 INR 1.0 11/24/15 14:10 APTT 25 SECONDS (21-34) 11/24/15 14:10 Attending/Attestation - Attestation I have personally seen and examined this patient.: Yes I have fully participated in the care of the patient.: Yes I have reviewed all pertinent clinical information, including history, physical exam and plan: Yes
--- NOTE | 2016-04-10 09:14 | CP.PCM.PN ---
<Rashel Rodrigues - Last Filed: 04/10/16 18:05> Objective - Vital Signs/Intake and Output Vital Signs (last 24 hours): Temp Pulse Resp BP Pulse Ox 98.3 F 74 20 107/72 100 04/10/16 16:02 04/10/16 16:02 04/10/16 16:02 04/10/16 16:02 04/10/16 16:02 Intake and Output: 04/10/16 04/10/16 06:59 18:59 Intake Total 1430 780 Output Total 1000 1000 Balance 430 -220 - Medications Medications: Current Medications Aspirin (Aspirin) 325 mg PEG DAILY [facility] Last Admin: 04/10/16 11:33 Dose: 325 mg Clopidogrel Bisulfate (Plavix) 75 mg PEG DAILY [facility] Last Admin: 04/10/16 11:35 Dose: 75 mg Famotidine (Pepcid) 20 mg PEG BID [facility] Last Admin: 04/10/16 11:34 Dose: 20 mg Lisinopril (Zestril) 5 mg PEG DAILY [facility] Last Admin: 04/10/16 11:35 Dose: 5 mg Mupirocin (Bactroban Ointment) 1 gm TOP DAILY [facility] Last Admin: 04/10/16 11:33 Dose: 1 applic Oxybutynin Chloride (Ditropan Tab) 5 mg PEG TID [facility] Last Admin: 04/10/16 14:26 Dose: 5 mg Phenytoin (Dilantin) 100 mg PEG TID [facility] Last Admin: 04/10/16 14:25 Dose: 100 mg - Labs Labs: 04/08/16 07:45 04/08/16 07:45 PT 10.6 SECONDS (9.7-12.2) 11/24/15 14:10 INR 1.0 11/24/15 14:10 APTT 25 SECONDS (21-34) 11/24/15 14:10 Attending/Attestation - Attestation I have personally seen and examined this patient.: Yes I have fully participated in the care of the patient.: Yes I have reviewed all pertinent clinical information, including history, physical exam and plan: Yes <Saba Ennis - Last Filed: 04/10/16 18:23> Subjective - Date & Time of Evaluation Date of Evaluation: 04/10/16 Time of Evaluation: 07:40 - Subjective Subjective: Patient seen and examined this morning. No acute change in clinical status. No acute events reported per nursing. Trach collar and PEG tube in place. Objective - Vital Signs/Intake and Output Vital Signs (last 24 hours): Temp Pulse Resp BP Pulse Ox 99.3 F 92 H 20 110/76 98 04/10/16 08:21 04/10/16 08:21 04/10/16 08:21 04/10/16 08:21 04/10/16 08:21 Intake and Output: 04/10/16 04/10/16 06:59 18:59 Intake Total 1430 Output Total 1000 Balance 430 - Medications Medications: Current Medications Aspirin (Aspirin) 325 mg PO DAILY [facility] Last Admin: 04/09/16 10:58 Dose: 325 mg Clopidogrel Bisulfate (Plavix) 75 mg PO DAILY [facility] Stop: 05/22/16 23:59 Last Admin: 04/09/16 10:58 Dose: 75 mg Famotidine (Pepcid) 20 mg PO BID [facility] Last Admin: 04/09/16 18:59 Dose: 20 mg Lisinopril (Zestril) 5 mg PO DAILY [facility] Last Admin: 04/09/16 10:58 Dose: 5 mg Mupirocin (Bactroban Ointment) 0 gm TOP DAILY [facility] Last Admin: 04/09/16 10:59 Dose: 1 applic Oxybutynin Chloride (Ditropan Tab) 5 mg PO TID [facility] Last Admin: 04/09/16 18:59 Dose: 5 mg Phenytoin (Dilantin) 100 mg PEG TID [facility] Last Admin: 04/09/16 18:59 Dose: 100 mg - Labs Labs: 04/08/16 07:45 04/08/16 07:45 PT 10.6 SECONDS (9.7-12.2) 11/24/15 14:10 INR 1.0 11/24/15 14:10 APTT 25 SECONDS (21-34) 11/24/15 14:10 - Constitutional Appears: Chronically Ill - Head Exam Head Exam: NORMOCEPHALIC - ENT Exam ENT Exam: Mucous Membranes Dry - Neck Exam Additional comments: trach collar in place, patient on vent support - Respiratory Exam Respiratory Exam: Clear to Ausculation Bilateral, NORMAL BREATHING PATTERN - Cardiovascular Exam Cardiovascular Exam: RRR, +S1, +S2 - GI/Abdominal Exam GI & Abdominal Exam: Soft. absent: Distended, Firm, Rigid Additional comments: PEG site covered, clean and dry Assessment and Plan - Assessment and Plan (Free Text) Assessment: (1) Anoxic encephalopathy No acute change in mental status PEG tube operational, continue tube feedings @ 50cc/hr nightly Labs on Mondays and . Lab work reviewed 04/08/16 and within normal limits. PEG tube placed at bedside by Dr. Chan on 11/27/15 Pending placement (2) Respiratory Failure Trach collar in place. Monitor site for infection/inflammation. Suction prn. WBC 04/08/16 within normal limits. f/u repeat labs 02/12 CXR: Linear atelectasis at the bases. Cardiomegaly. ID on case - Dr. Armstrong Sputum culture 12/06 + pseudomonas: probably colonization. No antibiotics per Dr. Armstrong tracheostomy with tube change by Dr. Chan on 11/27/15 (3) UTI Chronic WBC 04/08 within normal limits, afebrile Yoo in place, no sign of leakage. Ditropan 5mg PEG TID for leakage around catheter. Continue to monitor vital signs and wbc count (4) CAD (coronary artery disease) Cardiac stents on 06/13/15. Continue Lisinopril 5mg PEG daily Continue Plavix 75mg PEG daily Continue ASA 325mg PEG daily (5) Seizures Continue dilantin 100mg PEG TID Seizure precautions. (6) Bed sore Healed. continue wound care as needed, sensicare, and medihoney Sacral ulcer Stage II 0.5cm x 1.5cm- Healed. Continue repositioning of patient q2H. dolphin mattress. Heel air boots. (7) Prophylactic measure Lovenox 40 SC daily Pepcid 20 mg PEG BID [facility]
[2016-04-10] MEDS: Phenytoin 100 mg/4 ml Oral Susp UD PEG SCH ×3 (11:34→21:18)
[2016-04-11] MEDS: Phenytoin 100 mg/4 ml Oral Susp UD PEG SCH ×3 (10:46→18:20)
[2016-04-11] MEDS: Enoxaparin 40 mg Syringe SC SCH (10:47)
--- NOTE | 2016-04-11 14:12 | CP.PCM.PN ---
<Merrick Heck - Last Filed: 04/11/16 14:08> Subjective - Date & Time of Evaluation Date of Evaluation: 04/11/16 Time of Evaluation: 08:35 - Subjective Subjective: Pgy2 Medicine Note Patient seen and examined at bedside this AM. No acute changes today - no events per nursing - peg and trach in place Objective - Vital Signs/Intake and Output Vital Signs (last 24 hours): Temp Pulse Resp BP Pulse Ox 98.5 F 90 20 108/71 97 04/11/16 08:00 04/11/16 08:00 04/11/16 08:00 04/11/16 08:00 04/11/16 08:00 Intake and Output: 04/11/16 04/11/16 06:59 18:59 Intake Total 1250 Output Total 750 300 Balance 500 -300 - Medications Medications: Current Medications Aspirin (Aspirin) 325 mg PEG DAILY [facility] Last Admin: 04/11/16 10:45 Dose: 325 mg Clopidogrel Bisulfate (Plavix) 75 mg PEG DAILY [facility] Last Admin: 04/11/16 10:47 Dose: 75 mg Enoxaparin Sodium (Lovenox) 40 mg SC DAILY [facility] Last Admin: 04/11/16 10:47 Dose: 40 mg Famotidine (Pepcid) 20 mg PEG BID [facility] Last Admin: 04/11/16 10:47 Dose: 20 mg Lisinopril (Zestril) 5 mg PEG DAILY [facility] Last Admin: 04/11/16 10:47 Dose: 5 mg Mupirocin (Bactroban Ointment) 1 gm TOP DAILY [facility] Last Admin: 04/11/16 10:47 Dose: 1 applic Oxybutynin Chloride (Ditropan Tab) 5 mg PEG TID [facility] Last Admin: 04/11/16 10:47 Dose: 5 mg Phenytoin (Dilantin) 100 mg PEG TID [facility] Last Admin: 04/11/16 10:46 Dose: 100 mg - Labs Labs: 04/08/16 07:45 04/08/16 07:45 PT 10.6 SECONDS (9.7-12.2) 11/24/15 14:10 INR 1.0 11/24/15 14:10 APTT 25 SECONDS (21-34) 11/24/15 14:10 - Constitutional Appears: No Acute Distress, Chronically Ill - Eye Exam Eye Exam: Normal appearance - ENT Exam ENT Exam: Mucous Membranes Moist - Respiratory Exam Respiratory Exam: NORMAL BREATHING PATTERN - Cardiovascular Exam Cardiovascular Exam: +S1, +S2 - GI/Abdominal Exam GI & Abdominal Exam: Soft, Normal Bowel Sounds Additional comments: PEG tube in place Assessment and Plan - Assessment and Plan (Free Text) Assessment: (1) Anoxic encephalopathy 04/11: No acute change in mental status PEG tube operational, continue tube feedings @ 50cc/hr nightly Labs on Mondays and . Lab work reviewed 04/08/16 and within normal limits. PEG tube placed at bedside by Dr. Chan on 11/27/15 Pending placement (2) Respiratory Failure 04/11: Trach collar in place. Monitor site for infection/inflammation. Suction prn. WBC 04/08/16 within normal limits. f/u repeat labs 02/12 CXR: Linear atelectasis at the bases. Cardiomegaly. ID on case - Dr. Armstrong Sputum culture 12/06 + pseudomonas: probably colonization. No antibiotics per Dr. Armstrong tracheostomy with tube change by Dr. Chan on 11/27/15 (3) UTI Chronic WBC 04/08 within normal limits, afebrile Yoo in place, no sign of leakage. Ditropan 5mg PEG TID for leakage around catheter. Continue to monitor vital signs and wbc count (4) CAD (coronary artery disease) Cardiac stents on 06/13/15. Continue Lisinopril 5mg PEG daily Continue Plavix 75mg PEG daily Continue ASA 325mg PEG daily (5) Seizures Continue dilantin 100mg PEG TID Seizure precautions. (6) Bed sore Healed. continue wound care as needed, [facility], and [facility] Sacral ulcer Stage II 0.5cm x 1.5cm- Healed. Continue repositioning of patient q2H. dolphin mattress. Heel air boots. (7) Prophylactic measure Lovenox 40 SC daily Pepcid 20 mg PEG BID [facility] <Rashel Rodrigues - Last Filed: 04/11/16 17:22> Objective - Vital Signs/Intake and Output Vital Signs (last 24 hours): Temp Pulse Resp BP Pulse Ox 98.4 F 87 20 116/75 100 04/11/16 16:12 04/11/16 16:12 04/11/16 16:12 04/11/16 16:12 04/11/16 16:12 Intake and Output: 04/11/16 04/11/16 06:59 18:59 Intake Total 1250 730 Output Total 750 300 Balance 500 430 - Medications Medications: Current Medications Aspirin (Aspirin) 325 mg PEG DAILY [facility] Last Admin: 04/11/16 10:45 Dose: 325 mg Clopidogrel Bisulfate (Plavix) 75 mg PEG DAILY [facility] Last Admin: 04/11/16 10:47 Dose: 75 mg Enoxaparin Sodium (Lovenox) 40 mg SC DAILY [facility] Last Admin: 04/11/16 10:47 Dose: 40 mg Famotidine (Pepcid) 20 mg PEG BID [facility] Last Admin: 04/11/16 10:47 Dose: 20 mg Lisinopril (Zestril) 5 mg PEG DAILY [facility] Last Admin: 04/11/16 10:47 Dose: 5 mg Mupirocin (Bactroban Ointment) 1 gm TOP DAILY [facility] Last Admin: 04/11/16 10:47 Dose: 1 applic Oxybutynin Chloride (Ditropan Tab) 5 mg PEG TID [facility] Last Admin: 04/11/16 14:18 Dose: 5 mg Phenytoin (Dilantin) 100 mg PEG TID [facility] Last Admin: 04/11/16 14:18 Dose: 100 mg - Labs Labs: 04/08/16 07:45 04/08/16 07:45 PT 10.6 SECONDS (9.7-12.2) 11/24/15 14:10 INR 1.0 11/24/15 14:10 APTT 25 SECONDS (21-34) 11/24/15 14:10 Attending/Attestation - Attestation I have personally seen and examined this patient.: Yes I have fully participated in the care of the patient.: Yes I have reviewed all pertinent clinical information, including history, physical exam and plan: Yes
--- NOTE | 2016-04-12 01:46 | CP.PCM.PN ---
"<Howard Lopez - Last Filed: 04/12/16 07:56> Subjective - Date & Time of Evaluation Date of Evaluation: 04/12/16 Time of Evaluation: 01:46 - Subjective Subjective: PGY1 Medicine Progress Note | Dr. Rodrigues's Service Patient seen and examined at bedside. At the time of exam, patient was lying in bed in NAD with trach collar, PEG tube, and baker in place. There is no acute change in clinical status. Patient not responding to verbal/tactile/painful stimuli. ROS unobtainable as patient is non-conversant. Objective - Vital Signs/Intake and Output Vital Signs (last 24 hours): Temp Pulse Resp BP Pulse Ox 98.5 F 79 20 93/60 L 99 04/12/16 00:00 04/12/16 00:00 04/12/16 00:00 04/12/16 00:00 04/12/16 00:00 Intake and Output: 04/11/16 04/12/16 18:59 06:59 Intake Total 730 900 Output Total 300 800 Balance 430 100 - Medications Medications: Current Medications Aspirin (Aspirin) 325 mg PEG DAILY [facility] Last Admin: 04/11/16 10:45 Dose: 325 mg Clopidogrel Bisulfate (Plavix) 75 mg PEG DAILY [facility] Last Admin: 04/11/16 10:47 Dose: 75 mg Enoxaparin Sodium (Lovenox) 40 mg SC DAILY [facility] Last Admin: 04/11/16 10:47 Dose: 40 mg Famotidine (Pepcid) 20 mg PEG BID [facility] Last Admin: 04/11/16 18:18 Dose: 20 mg Lisinopril (Zestril) 5 mg PEG DAILY [facility] Last Admin: 04/11/16 10:47 Dose: 5 mg Mupirocin (Bactroban Ointment) 1 gm TOP DAILY [facility] Last Admin: 04/11/16 10:47 Dose: 1 applic Oxybutynin Chloride (Ditropan Tab) 5 mg PEG TID [facility] Last Admin: 04/11/16 18:18 Dose: 5 mg Phenytoin (Dilantin) 100 mg PEG TID [facility] Last Admin: 04/11/16 18:20 Dose: 100 mg - Labs Labs: 04/08/16 07:45 04/08/16 07:45 PT 10.6 SECONDS (9.7-12.2) 11/24/15 14:10 INR 1.0 11/24/15 14:10 APTT 25 SECONDS (21-34) 11/24/15 14:10 - Additional Findings Additional findings: - Constitutional Appears: No Acute Distress - Head Exam Head Exam: ATRAUMATIC, NORMOCEPHALIC - Eye Exam Eye Exam: Normal appearance - ENT Exam ENT Exam: Mucous Membranes Moist - Neck Exam Additional comments: Trach collar in place, no erythema/swelling/blood appreciated. Minimal secretions. - Respiratory Exam Respiratory Exam: Clear to Auscultation Bilateral, NORMAL BREATHING PATTERN - Cardiovascular Exam Cardiovascular Exam: REGULAR RHYTHM, +S1, +S2. absent: Gallop, Rubs, Murmur - GI/Abdominal Exam GI & Abdominal Exam: Soft. absent: Distended Additional comments: PEG tube in place, no erythema/swelling appreciated. PEG tube not running during day - Extremities Exam Additional comments: heel air boots in place - Neurological Exam Neurological Exam: Altered, Awake - Skin Skin Exam: Dry, Warm Assessment and Plan - Assessment and Plan (Free Text) Assessment: (1) Anoxic encephalopathy 04/12: No acute change in mental status PEG tube operational, continue tube feedings @ 50cc/hr nightly Labs on Mondays and . Lab work reviewed 04/08/16 and within normal limits. PEG tube placed at bedside by Dr. Chan on 11/27/15 Pending placement (2) Respiratory Failure 04/12: Trach collar in place. Monitor site for infection/inflammation. Suction prn. WBC 04/08/16 within normal limits. f/u repeat labs 02/12 CXR: Linear atelectasis at the bases. Cardiomegaly. ID on case - Dr. Armstrong Sputum culture 12/06 + pseudomonas: probably colonization. No antibiotics per Dr. Armstrong tracheostomy with tube change by Dr. Chan on 11/27/15 (3) UTI Chronic WBC 04/08 within normal limits, afebrile Baker in place, no sign of leakage. Ditropan 5mg PEG TID for leakage around catheter. Continue to monitor vital signs and wbc count (4) CAD (coronary artery disease) Cardiac stents on 06/13/15. Continue Lisinopril 5mg PEG daily Continue Plavix 75mg PEG daily Continue ASA 325mg PEG daily (5) Seizures Continue dilantin 100mg PEG TID Seizure precautions. (6) Bed sore Healed. continue wound care as needed, [facility], and [facility] Sacral ulcer Stage II 0.5cm x 1.5cm- Healed. Continue repositioning of patient q2H. dolphin mattress. Heel air boots. (7) Prophylactic measure Lovenox 40 SC daily Pepcid 20 mg PEG BID [facility] <Nyunt,Rashel - Last Filed: 04/12/16 13:41> Objective - Vital Signs/Intake and Output Vital Signs (last 24 hours): Temp Pulse Resp BP Pulse Ox 98.4 F 70 20 107/74 97 04/12/16 07:54 04/12/16 07:54 04/12/16 07:54 04/12/16 07:54 04/12/16 07:54 Intake and Output: 04/12/16 04/12/16 06:59 18:59 Intake Total 1550 750 Output Total 1100 500 Balance 450 250 - Medications Medications: Current Medications Aspirin (Aspirin) 325 mg PEG DAILY [facility] Last Admin: 04/12/16 10:52 Dose: 325 mg Clopidogrel Bisulfate (Plavix) 75 mg PEG DAILY [facility] Last Admin: 04/12/16 10:49 Dose: 75 mg Enoxaparin Sodium (Lovenox) 40 mg SC DAILY [facility] Last Admin: 04/12/16 10:50 Dose: 40 mg Famotidine (Pepcid) 20 mg PEG BID [facility] Last Admin: 04/12/16 10:50 Dose: 20 mg Lisinopril (Zestril) 5 mg PEG DAILY [facility] Last Admin: 04/12/16 10:49 Dose: 5 mg Mupirocin (Bactroban Ointment) 1 gm TOP DAILY [facility] Last Admin: 04/12/16 10:51 Dose: 1 applic Oxybutynin Chloride (Ditropan Tab) 5 mg PEG TID [facility] Last Admin: 04/12/16 13:20 Dose: 5 mg Phenytoin (Dilantin) 100 mg PEG TID [facility] Last Admin: 04/12/16 13:20 Dose: 100 mg - Labs Labs: 04/12/16 08:41 04/12/16 08:41 PT 10.6 SECONDS (9.7-12.2) 11/24/15 14:10 INR 1.0 11/24/15 14:10 APTT 25 SECONDS (21-34) 11/24/15 14:10 Attending/Attestation - Attestation I have personally seen and examined this patient.: Yes I have fully participated in the care of the patient.: Yes I have reviewed all pertinent clinical information, including history, physical exam and plan: Yes"
[2016-04-12 08:52] LABS: HEMOGLOBIN 11.8 g/dL (12.0-18.0); MEAN CELL VOLUME 93.5 fL (80.0-94.0); MEAN CORPUSCULAR HEMOGLOBIN 30.7 pg (27.0-31.0); MEAN CORPUSCULAR HGB CONC 32.9 g/dL (33.0-37.0); MEAN PLATELET VOLUME 8.7 fL (7.2-11.7); RBC 3.85 Mil/uL (4.40-5.90); RED CELL DISTRIBUTION WIDTH 15.1 % (11.5-14.5)
[2016-04-12 09:22] LABS: GFR NON-AFRICAN AMERICAN > 60
[2016-04-12 09:23] LABS: BLOOD UREA NITROGEN 21 mg/dL (9-20); CALCIUM 8.6 mg/dl (8.6-10.4)
[2016-04-12] MEDS: Enoxaparin 40 mg Syringe SC SCH (10:50)
[2016-04-12] MEDS: Phenytoin 100 mg/4 ml Oral Susp UD PEG SCH ×3 (10:51→18:21)
--- NOTE | 2016-04-13 00:21 | CP.PCM.PN ---
"<Howard Lopez - Last Filed: 04/13/16 01:07> Subjective - Date & Time of Evaluation Date of Evaluation: 04/13/16 Time of Evaluation: 00:20 - Subjective Subjective: PGY1 Medicine Progress Note | Dr. Rodrigues's Service Patient seen and examined at bedside. At the time of exam, patient was asleep in bed in NAD with trach collar, PEG tube, and baker in place. There is no acute change in clinical status. Patient not rousable, no response to verbal/ tactile/painful stimuli. ROS unobtainable as patient is non-conversant. Objective - Vital Signs/Intake and Output Vital Signs (last 24 hours): Temp Pulse Resp BP Pulse Ox 99.9 F H 89 20 121/78 98 04/13/16 00:08 04/13/16 00:08 04/13/16 00:08 04/13/16 00:08 04/13/16 00:08 Intake and Output: 04/12/16 04/13/16 18:59 06:59 Intake Total 750 800 Output Total 850 575 Balance -100 225 - Medications Medications: Current Medications Aspirin (Aspirin) 325 mg PEG DAILY [facility] Last Admin: 04/12/16 10:52 Dose: 325 mg Clopidogrel Bisulfate (Plavix) 75 mg PEG DAILY [facility] Last Admin: 04/12/16 10:49 Dose: 75 mg Enoxaparin Sodium (Lovenox) 40 mg SC DAILY [facility] Last Admin: 04/12/16 10:50 Dose: 40 mg Famotidine (Pepcid) 20 mg PEG BID [facility] Last Admin: 04/12/16 18:21 Dose: 20 mg Lisinopril (Zestril) 5 mg PEG DAILY [facility] Last Admin: 04/12/16 10:49 Dose: 5 mg Mupirocin (Bactroban Ointment) 1 gm TOP DAILY [facility] Last Admin: 04/12/16 10:51 Dose: 1 applic Oxybutynin Chloride (Ditropan Tab) 5 mg PEG TID [facility] Last Admin: 04/12/16 18:22 Dose: 5 mg Phenytoin (Dilantin) 100 mg PEG TID [facility] Last Admin: 04/12/16 18:21 Dose: 100 mg - Labs Labs: 04/12/16 08:41 04/12/16 08:41 PT 10.6 SECONDS (9.7-12.2) 11/24/15 14:10 INR 1.0 11/24/15 14:10 APTT 25 SECONDS (21-34) 11/24/15 14:10 - Additional Findings Additional findings: - Constitutional Appears: No Acute Distress - Head Exam Head Exam: ATRAUMATIC, NORMOCEPHALIC - Eye Exam Eye Exam: Normal appearance - ENT Exam ENT Exam: Mucous Membranes Moist - Neck Exam Additional comments: Trach collar in place, no erythema/swelling/blood appreciated Clear mucous secretions in suction bin, no blood appreciated. - Respiratory Exam Respiratory Exam: Clear to Auscultation Bilateral, NORMAL BREATHING PATTERN - Cardiovascular Exam Cardiovascular Exam: REGULAR RHYTHM, +S1, +S2. absent: Gallop, Rubs, Murmur - GI/Abdominal Exam GI & Abdominal Exam: Soft. absent: Distended Additional comments: PEG tube in place, no erythema/swelling appreciated. PEG tube running @ 50cc/hr. - Extremities Exam Additional comments: heel air boots in place - Neurological Exam Neurological Exam: Altered, Awake - Skin Skin Exam: Dry, Warm Assessment and Plan - Assessment and Plan (Free Text) Assessment: (1) Anoxic encephalopathy 04/13: No acute change in mental status PEG tube operational, continue tube feedings @ 50cc/hr nightly with 300cc flushes Labs on Mondays and . Lab work reviewed 04/08/16 and within normal limits. PEG tube placed at bedside by Dr. Chan on 11/27/15 Pending placement (2) Respiratory Failure 04/13: Trach collar in place. Monitor site for infection/inflammation. Suction prn. WBC 04/08/16 within normal limits. f/u repeat labs 02/12 CXR: Linear atelectasis at the bases. Cardiomegaly. ID on case - Dr. Armstrong Sputum culture 12/06 + pseudomonas: probably colonization. No antibiotics per Dr. Armstrong tracheostomy with tube change by Dr. Chan on 11/27/15 (3) UTI 04/13/16: monitor VS closely. Pt. afebrile however temp mildly elevated overnight. Chronic WBC 04/08 within normal limits, afebrile Baker in place, no sign of leakage. Ditropan 5mg PEG TID for leakage around catheter. Continue to monitor vital signs and wbc count (4) CAD (coronary artery disease) Cardiac stents on 06/13/15. Continue Lisinopril 5mg PEG daily Continue Plavix 75mg PEG daily Continue ASA 325mg PEG daily (5) Seizures Continue dilantin 100mg PEG TID Seizure precautions. (6) Bed sore Healed. continue wound care as needed, [facility], and [facility] Sacral ulcer Stage II 0.5cm x 1.5cm- Healed. Continue repositioning of patient q2H. dolphin mattress. Heel air boots. (7) Prophylactic measure Lovenox 40 SC daily Pepcid 20 mg PEG BID [facility] <Rashel Rodrigues - Last Filed: 04/13/16 15:21> Objective - Vital Signs/Intake and Output Vital Signs (last 24 hours): Temp Pulse Resp BP Pulse Ox 97.9 F 76 20 109/68 100 04/13/16 07:00 04/13/16 07:00 04/13/16 07:00 04/13/16 07:00 04/13/16 07:00 Intake and Output: 04/13/16 04/13/16 06:59 18:59 Intake Total 1450 Output Total 775 Balance 675 - Medications Medications: Current Medications Aspirin (Aspirin) 325 mg PEG DAILY [facility] Last Admin: 04/13/16 09:24 Dose: 325 mg Clopidogrel Bisulfate (Plavix) 75 mg PEG DAILY [facility] Last Admin: 04/13/16 09:25 Dose: 75 mg Enoxaparin Sodium (Lovenox) 40 mg SC DAILY [facility] Last Admin: 04/13/16 09:25 Dose: 40 mg Famotidine (Pepcid) 20 mg PEG BID [facility] Last Admin: 04/13/16 09:25 Dose: 20 mg Lisinopril (Zestril) 5 mg PEG DAILY [facility] Last Admin: 04/13/16 09:25 Dose: 5 mg Mupirocin (Bactroban Ointment) 1 gm TOP DAILY [facility] Last Admin: 04/13/16 09:27 Dose: 1 applic Oxybutynin Chloride (Ditropan Tab) 5 mg PEG TID [facility] Last Admin: 04/13/16 13:47 Dose: 5 mg Phenytoin (Dilantin) 100 mg PEG TID [facility] Last Admin: 04/13/16 13:47 Dose: 100 mg - Labs Labs: 04/12/16 08:41 04/12/16 08:41 PT 10.6 SECONDS (9.7-12.2) 11/24/15 14:10 INR 1.0 11/24/15 14:10 APTT 25 SECONDS (21-34) 11/24/15 14:10 Attending/Attestation - Attestation I have personally seen and examined this patient.: Yes I have fully participated in the care of the patient.: Yes I have reviewed all pertinent clinical information, including history, physical exam and plan: Yes"
[2016-04-13] MEDS: Phenytoin 100 mg/4 ml Oral Susp UD PEG SCH ×3 (09:24→20:01)
[2016-04-13] MEDS: Enoxaparin 40 mg Syringe SC SCH (09:25)
[2016-04-14 08:22] LABS: BASO # 0.1 K/uL (0.0-0.2); EOS # 0.5 K/uL (0.0-0.7); HEMOGLOBIN 11.7 g/dL (12.0-18.0); MONO # 1.2 K/uL (0.0-0.8)
[2016-04-14 08:30] LABS: BASO % 0.3 % (0.0-2.0); EOS % 2.8 % (0.0-4.0); LYMPH # 2.1 K/uL (1.0-4.3); LYMPH % 11.6 % (20.0-40.0); MEAN CELL VOLUME 92.4 fL (80.0-94.0); MEAN CORPUSCULAR HEMOGLOBIN 30.3 pg (27.0-31.0); MEAN CORPUSCULAR HGB CONC 32.7 g/dL (33.0-37.0); MEAN PLATELET VOLUME 8.4 fL (7.2-11.7); MONO % 6.8 % (0.0-10.0); NEUT # 13.8 K/uL (1.8-7.0); NEUT % 78.5 % (50.0-75.0); RBC 3.86 Mil/uL (4.40-5.90); RED CELL DISTRIBUTION WIDTH 14.8 % (11.5-14.5)
[2016-04-14 08:31] LABS: WHITE BLOOD COUNT 17.6 K/uL (4.8-10.8)
[2016-04-14 08:37] LABS: ALBUMIN 3.3 g/dL (3.5-5.0)
[2016-04-14 08:40] LABS: ALB/GLOB RATIO 0.9 (1.0-2.1); ALT/SGPT 65 U/L (21-72); AST/SGOT 23 U/L (17-59); BLOOD UREA NITROGEN 22 mg/dL (9-20); GFR NON-AFRICAN AMERICAN > 60
[2016-04-14 08:41] LABS: CALCIUM 8.6 mg/dl (8.6-10.4)
[2016-04-14] MEDS: Enoxaparin 40 mg Syringe SC SCH (10:07)
[2016-04-14] MEDS: Phenytoin 100 mg/4 ml Oral Susp UD PEG SCH ×2 (10:07→18:21)
--- NOTE | 2016-04-14 18:43 | CP.PCM.PN ---
<Merrick Heck - Last Filed: 04/14/16 18:39> Subjective - Date & Time of Evaluation Date of Evaluation: 04/14/16 Time of Evaluation: 09:15 - Subjective Subjective: Pgy2 medicine Note Patient seen and examined at bedside this AM. No acute changes with patient on encounter - trach and peg tube in place, however baker draining cloudy urine. No acute events overnight per nursing. Will order change of baker and cultures pending AM labs. Objective - Vital Signs/Intake and Output Vital Signs (last 24 hours): Temp Pulse Resp BP Pulse Ox 98.3 F 80 20 112/77 100 04/14/16 15:57 04/14/16 15:57 04/14/16 15:57 04/14/16 15:57 04/14/16 15:57 Intake and Output: 04/14/16 04/14/16 06:59 18:59 Intake Total 1400 880 Output Total 2400 200 Balance -1000 680 - Medications Medications: Current Medications Aspirin (Aspirin) 325 mg PEG DAILY [facility] Last Admin: 04/14/16 10:07 Dose: 325 mg Clopidogrel Bisulfate (Plavix) 75 mg PEG DAILY [facility] Last Admin: 04/14/16 10:07 Dose: 75 mg Enoxaparin Sodium (Lovenox) 40 mg SC DAILY [facility] Last Admin: 04/14/16 10:07 Dose: 40 mg Famotidine (Pepcid) 20 mg PEG BID [facility] Last Admin: 04/14/16 18:20 Dose: 20 mg Ceftriaxone Sodium 1 gm/ (Sodium Chloride) 50 mls @ 100 mls/hr IVPB DAILY [facility] Lisinopril (Zestril) 5 mg PEG DAILY [facility] Last Admin: 04/14/16 10:07 Dose: 5 mg Mupirocin (Bactroban Ointment) 1 gm TOP DAILY [facility] Last Admin: 04/13/16 09:27 Dose: 1 applic Oxybutynin Chloride (Ditropan Tab) 5 mg PEG TID [facility] Last Admin: 04/14/16 10:07 Dose: 5 mg Phenytoin (Dilantin) 100 mg PEG TID [facility] Last Admin: 04/14/16 18:21 Dose: 100 mg - Labs Labs: 04/14/16 08:16 04/14/16 08:16 PT 10.6 SECONDS (9.7-12.2) 11/24/15 14:10 INR 1.0 11/24/15 14:10 APTT 25 SECONDS (21-34) 11/24/15 14:10 - Constitutional Appears: Chronically Ill - Head Exam Head Exam: NORMOCEPHALIC - ENT Exam ENT Exam: Mucous Membranes Moist, Normal Oropharynx - Respiratory Exam Respiratory Exam: Clear to Ausculation Bilateral, NORMAL BREATHING PATTERN - Cardiovascular Exam Cardiovascular Exam: RRR, +S1, +S2 - GI/Abdominal Exam GI & Abdominal Exam: Soft, Normal Bowel Sounds - Exam Additional comments: baker in place - Skin Skin Exam: Normal Color Assessment and Plan - Assessment and Plan (Free Text) Assessment: (1) Anoxic encephalopathy 04/14: No acute change in mental status PEG tube operational, continue tube feedings @ 50cc/hr nightly with 300cc flushes Labs on Mondays and . Lab work reviewed 04/08/16 and within normal limits. PEG tube placed at bedside by Dr. Chan on 11/27/15 Pending placement (2) Respiratory Failure 04/14: Trach collar in place. Monitor site for infection/inflammation. Suction prn. WBC 04/08/16 within normal limits. f/u repeat labs 02/12 CXR: Linear atelectasis at the bases. Cardiomegaly. ID on case - Dr. Armstrong Sputum culture 12/06 + pseudomonas: probably colonization. No antibiotics per Dr. Armstrong tracheostomy with tube change by Dr. Chan on 11/27/15 (3) UTI 04/14: afebrile, WBC elevated 17: order to change baker catheter and obtain blood and urine cultures: Rocephin 1gm iv daily to follow cultures 04/13/16: monitor VS closely. Pt. afebrile however temp mildly elevated overnight. Chronic WBC 04/08 within normal limits, afebrile Baker in place, no sign of leakage. Ditropan 5mg PEG TID for leakage around catheter. Continue to monitor vital signs and wbc count (4) CAD (coronary artery disease) Cardiac stents on 06/13/15. Continue Lisinopril 5mg PEG daily Continue Plavix 75mg PEG daily Continue ASA 325mg PEG daily (5) Seizures Continue dilantin 100mg PEG TID Seizure precautions. (6) Bed sore Healed. continue wound care as needed, [facility], and [facility] Sacral ulcer Stage II 0.5cm x 1.5cm- Healed. Continue repositioning of patient q2H. dolphin mattress. Heel air boots. (7) Prophylactic measure Lovenox 40 SC daily Pepcid 20 mg PEG BID [facility] <VijiPriyat - Last Filed: 05/21/16 13:07> Objective - Vital Signs/Intake and Output Vital Signs (last 24 hours): Temp Pulse Resp BP Pulse Ox 97.6 F 95 H 20 126/80 99 05/21/16 08:00 05/21/16 08:00 05/21/16 08:00 05/21/16 08:00 05/21/16 08:00 Intake and Output: 05/21/16 05/21/16 06:59 18:59 Intake Total 1350 Output Total 700 Balance 650 - Medications Medications: Current Medications Aspirin (Aspirin Chewable) 81 mg PEG DAILY [facility] Last Admin: 05/21/16 09:16 Dose: 81 mg Clopidogrel Bisulfate (Plavix) 75 mg PEG DAILY [facility] Last Admin: 05/21/16 09:16 Dose: 75 mg Enoxaparin Sodium (Lovenox) 40 mg SC DAILY [facility] Last Admin: 05/21/16 09:16 Dose: 40 mg Famotidine (Pepcid) 20 mg PEG BID [facility] Last Admin: 05/21/16 09:16 Dose: 20 mg Mupirocin (Bactroban Ointment) 0 gm TOP DAILY [facility] Last Admin: 05/20/16 10:00 Dose: 1 applic Oxybutynin Chloride (Ditropan Tab) 5 mg PEG TID [facility] Last Admin: 05/21/16 09:16 Dose: 5 mg Phenytoin (Dilantin) 100 mg PEG TID [facility] Last Admin: 05/21/16 09:16 Dose: 100 mg - Labs Labs: 05/19/16 07:29 05/19/16 07:29 PT 10.6 SECONDS (9.7-12.2) 11/24/15 14:10 INR 1.0 11/24/15 14:10 APTT 25 SECONDS (21-34) 11/24/15 14:10 Attending/Attestation - Attestation I have personally seen and examined this patient.: Yes I have fully participated in the care of the patient.: Yes I have reviewed all pertinent clinical information, including history, physical exam and plan: Yes Notes (Text): Patient seen and examined with resident agree with evaluation assessment and plan.
--- NOTE | 2016-04-15 07:42 | CP.PCM.PN ---
<Saba Ennis - Last Filed: 04/15/16 17:55> Subjective - Date & Time of Evaluation Date of Evaluation: 04/15/16 Time of Evaluation: 09:30 - Subjective Subjective: Patient seen and examined this morning. No acute changes in clinical status. Per nursing, Baker had been changed yesterday. RN reports that she has noticed thick greenish secretions from tracheostomy tube. No other acute overnight events reported. Objective - Vital Signs/Intake and Output Vital Signs (last 24 hours): Temp Pulse Resp BP Pulse Ox 98.3 F 90 20 93/60 L 93 L 04/15/16 00:27 04/15/16 00:27 04/15/16 00:27 04/15/16 00:27 04/15/16 00:27 Intake and Output: 04/15/16 04/15/16 06:59 18:59 Intake Total 800 650 Output Total 620 250 Balance 180 400 - Medications Medications: Current Medications Aspirin (Aspirin) 325 mg PEG DAILY [facility] Last Admin: 04/14/16 10:07 Dose: 325 mg Clopidogrel Bisulfate (Plavix) 75 mg PEG DAILY [facility] Last Admin: 04/14/16 10:07 Dose: 75 mg Enoxaparin Sodium (Lovenox) 40 mg SC DAILY [facility] Last Admin: 04/14/16 10:07 Dose: 40 mg Famotidine (Pepcid) 20 mg PEG BID [facility] Last Admin: 04/14/16 18:20 Dose: 20 mg Ceftriaxone Sodium 1 gm/ (Sodium Chloride) 50 mls @ 100 mls/hr IVPB DAILY [facility] Lisinopril (Zestril) 5 mg PEG DAILY [facility] Last Admin: 04/14/16 10:07 Dose: 5 mg Mupirocin (Bactroban Ointment) 1 gm TOP DAILY [facility] Last Admin: 04/13/16 09:27 Dose: 1 applic Oxybutynin Chloride (Ditropan Tab) 5 mg PEG TID [facility] Last Admin: 04/14/16 22:50 Dose: 5 mg Phenytoin (Dilantin) 100 mg PEG TID [facility] Last Admin: 04/14/16 18:21 Dose: 100 mg - Labs Labs: 04/14/16 08:16 04/14/16 08:16 PT 10.6 SECONDS (9.7-12.2) 11/24/15 14:10 INR 1.0 11/24/15 14:10 APTT 25 SECONDS (21-34) 11/24/15 14:10 - Constitutional Appears: Chronically Ill - Eye Exam Pupil Exam: PERRL - ENT Exam ENT Exam: Mucous Membranes Moist Additional comments: trach site clean, thin clear secretions noted - Respiratory Exam Respiratory Exam: Clear to Ausculation Bilateral, NORMAL BREATHING PATTERN - Cardiovascular Exam Cardiovascular Exam: REGULAR RHYTHM, +S1, +S2 - Exam Additional comments: Baker catheter with clear yellow urine output - Neurological Exam Neurological Exam: Altered Assessment and Plan - Assessment and Plan (Free Text) Assessment: (1) Anoxic encephalopathy 04/15: No acute change in mental status PEG tube operational, continue tube feedings @ 50cc/hr nightly with 300cc flushes Labs on Mondays and . Lab work reviewed 04/08/16 and within normal limits. PEG tube placed at bedside by Dr. Chan on 11/27/15 Pending placement (2) Respiratory Failure 04/15: Trach collar in place. Thin secretions noted. Per nursing, patient had thick secretions earlier which she suctioned. Sputum cultures ordered. Monitor site for infection/inflammation. Suction prn. WBC elevated on 04/14/16, patient afebrile- cultures pending 02/12 CXR: Linear atelectasis at the bases. Cardiomegaly. ID on case - Dr. Armstrong Sputum culture 12/06 + pseudomonas: probably colonization. No antibiotics per Dr. Armstrong tracheostomy with tube change by Dr. Chan on 11/27/15 (3) UTI 04/15: afebrile. continue Rocephin. Cultures pending. CBC ordered for tomorrow to trend WBC count. 04/14: afebrile, WBC elevated 17: order to change baker catheter and obtain blood and urine cultures: Rocephin 1gm iv daily to follow cultures 04/13/16: monitor VS closely. Pt. afebrile however temp mildly elevated overnight. Chronic Baker in place, no sign of leakage. Ditropan 5mg PEG TID for leakage around catheter. Continue to monitor vital signs and wbc count (4) CAD (coronary artery disease) Cardiac stents on 06/13/15. Continue Lisinopril 5mg PEG daily Continue Plavix 75mg PEG daily Continue ASA 325mg PEG daily (5) Seizures Continue dilantin 100mg PEG TID Seizure precautions. (6) Bed sore Healed. continue wound care as needed, sensicare, and medihoney Sacral ulcer Stage II 0.5cm x 1.5cm- Healed. Continue repositioning of patient q2H. dolphin mattress. Heel air boots. (7) Prophylactic measure Lovenox 40 SC daily Pepcid 20 mg PEG BID [facility] <Donavan Hallman - Last Filed: 05/22/16 14:18> Objective - Vital Signs/Intake and Output Vital Signs (last 24 hours): Temp Pulse Resp BP Pulse Ox 98.7 F 81 20 102/67 99 05/22/16 00:02 05/22/16 08:00 05/22/16 00:02 05/22/16 00:02 05/22/16 00:02 Intake and Output: 05/22/16 05/22/16 06:59 18:59 Intake Total 1250 Output Total 800 Balance 450 - Medications Medications: Current Medications Aspirin (Aspirin Chewable) 81 mg PEG DAILY [facility] Last Admin: 05/22/16 10:31 Dose: 81 mg Clopidogrel Bisulfate (Plavix) 75 mg PEG DAILY [facility] Last Admin: 05/22/16 10:32 Dose: 75 mg Enoxaparin Sodium (Lovenox) 40 mg SC DAILY [facility] Last Admin: 05/22/16 10:31 Dose: 40 mg Famotidine (Pepcid) 20 mg PEG BID [facility] Last Admin: 05/22/16 10:32 Dose: 20 mg Mupirocin (Bactroban Ointment) 0 gm TOP DAILY [facility] Last Admin: 05/22/16 10:32 Dose: 1 applic Oxybutynin Chloride (Ditropan Tab) 5 mg PEG TID [facility] Last Admin: 05/22/16 13:59 Dose: 5 mg Phenytoin (Dilantin) 100 mg PEG TID [facility] Last Admin: 05/22/16 13:59 Dose: 100 mg - Labs Labs: 05/22/16 08:18 05/22/16 08:18 PT 10.6 SECONDS (9.7-12.2) 11/24/15 14:10 INR 1.0 11/24/15 14:10 APTT 25 SECONDS (21-34) 11/24/15 14:10 Attending/Attestation - Attestation I have personally seen and examined this patient.: Yes I have fully participated in the care of the patient.: Yes I have reviewed all pertinent clinical information, including history, physical exam and plan: Yes Notes (Text): Patient seen and examined with resident. Agree with resident's evaluation, assessment and plan.
[2016-04-15] MEDS: Phenytoin 100 mg/4 ml Oral Susp UD PEG SCH ×3 (09:33→17:46)
[2016-04-15] MEDS: Enoxaparin 40 mg Syringe SC SCH (09:35)
[2016-04-16 07:52] LABS: BASO % 0.4 % (0.0-2.0); EOS # 0.6 K/uL (0.0-0.7); EOS % 7.2 % (0.0-4.0); HEMOGLOBIN 11.2 g/dL (12.0-18.0); LYMPH # 1.4 K/uL (1.0-4.3); LYMPH % 16.3 % (20.0-40.0); MEAN CELL VOLUME 93.2 fL (80.0-94.0); MEAN CORPUSCULAR HEMOGLOBIN 30.8 pg (27.0-31.0); MEAN CORPUSCULAR HGB CONC 33.1 g/dL (33.0-37.0); MEAN PLATELET VOLUME 8.4 fL (7.2-11.7); MONO # 0.8 K/uL (0.0-0.8); NEUT # 5.5 K/uL (1.8-7.0); NEUT % 66.1 % (50.0-75.0); RBC 3.62 Mil/uL (4.40-5.90); RED CELL DISTRIBUTION WIDTH 14.6 % (11.5-14.5)
[2016-04-16 07:53] LABS: WHITE BLOOD COUNT 8.4 K/uL (4.8-10.8)
[2016-04-16] MEDS: Enoxaparin 40 mg Syringe SC SCH (10:07)
[2016-04-16] MEDS: Phenytoin 100 mg/4 ml Oral Susp UD PEG SCH ×3 (10:07→17:31)
--- NOTE | 2016-04-16 11:42 | CP.PCM.PN ---
<Merrick Heck - Last Filed: 04/16/16 11:33> Subjective - Date & Time of Evaluation Date of Evaluation: 04/16/16 Time of Evaluation: 09:10 - Subjective Subjective: Pgy2 Medicine Resident Note Patient seen and examined at bedside this AM. No acute changes overnight per nursing - baker and trach in place . blood sputum and urine cx ordered 04/14 when baker bag showed cloudy urine and elevated WBC count. urine clear yellow now and no discharge or secretions seen at trach entry site. Objective - Vital Signs/Intake and Output Vital Signs (last 24 hours): Temp Pulse Resp BP Pulse Ox 97.8 F 69 20 108/66 97 04/16/16 08:00 04/16/16 08:00 04/16/16 08:00 04/16/16 08:00 04/16/16 08:00 Intake and Output: 04/16/16 04/16/16 06:59 18:59 Intake Total 600 Output Total 300 Balance 300 - Medications Medications: Current Medications Aspirin (Aspirin) 325 mg PEG DAILY [facility] Last Admin: 04/16/16 10:07 Dose: 325 mg Clopidogrel Bisulfate (Plavix) 75 mg PEG DAILY [facility] Last Admin: 04/16/16 10:07 Dose: 75 mg Enoxaparin Sodium (Lovenox) 40 mg SC DAILY [facility] Last Admin: 04/16/16 10:07 Dose: 40 mg Famotidine (Pepcid) 20 mg PEG BID [facility] Last Admin: 04/16/16 10:07 Dose: 20 mg Ceftriaxone Sodium 1 gm/ (Sodium Chloride) 50 mls @ 100 mls/hr IVPB DAILY [facility] Stop: 04/21/16 10:00 Last Admin: 04/16/16 10:07 Dose: 100 mls/hr Azithromycin 500 mg/ Sodium (Chloride) 250 mls @ 250 mls/hr IVPB DAILY [facility] Stop: 04/21/16 11:46 Lisinopril (Zestril) 5 mg PEG DAILY [facility] Last Admin: 04/16/16 10:07 Dose: 5 mg Mupirocin (Bactroban Ointment) 1 gm TOP DAILY [facility] Last Admin: 04/15/16 10:00 Dose: 1 applic Oxybutynin Chloride (Ditropan Tab) 5 mg PEG TID [facility] Last Admin: 04/16/16 10:07 Dose: 5 mg Phenytoin (Dilantin) 100 mg PEG TID [facility] Last Admin: 04/16/16 10:07 Dose: 100 mg - Labs Labs: 04/16/16 07:27 04/14/16 08:16 PT 10.6 SECONDS (9.7-12.2) 11/24/15 14:10 INR 1.0 11/24/15 14:10 APTT 25 SECONDS (21-34) 11/24/15 14:10 - Constitutional Appears: Non-toxic, No Acute Distress, Chronically Ill - Head Exam Head Exam: NORMAL INSPECTION, NORMOCEPHALIC - Eye Exam Eye Exam: PERRL - ENT Exam ENT Exam: Mucous Membranes Moist, Normal Oropharynx - Respiratory Exam Respiratory Exam: Clear to Ausculation Bilateral, NORMAL BREATHING PATTERN. absent: Wheezes - Cardiovascular Exam Cardiovascular Exam: REGULAR RHYTHM, RRR, +S1, +S2 - GI/Abdominal Exam GI & Abdominal Exam: Soft, Normal Bowel Sounds. absent: Tenderness Additional comments: peg tube in place Assessment and Plan - Assessment and Plan (Free Text) Assessment: (1) Anoxic encephalopathy 04/16: No acute change in mental status PEG tube operational, continue tube feedings @ 50cc/hr nightly with 300cc flushes Labs on Mondays and . Lab work reviewed 04/08/16 and within normal limits. PEG tube placed at bedside by Dr. Chan on 11/27/15 Pending placement (2) Respiratory Failure 04/16: Trach collar in place. no secretions noted. Per nursing, patient had thick secretions earlier which she suctioned. Sputum cultures ordered - POSITIVE for gram positive cocci Urine cultures POSITIVE for gram negative rods Rocephin 1gm IV started 04/14/16 Azithromycin 500mg iv daily started 04/16/16 Monitor site for infection/inflammation. Suction prn. WBC elevated on 04/14/16, patient afebrile-repeat WBC 8.9 and afebrile 02/12 CXR: Linear atelectasis at the bases. Cardiomegaly. ID on case - Dr. Armstrong Sputum culture 12/06 + pseudomonas: probably colonization. No antibiotics per Dr. Armstrong tracheostomy with tube change by Dr. Chan on 11/27/15 (3) UTI 04/16: afebrile, leukocytosis resolved, cultures positive gram negative rods 04/15: afebrile. continue Rocephin. Cultures pending. CBC ordered for tomorrow to trend WBC count. 04/14: afebrile, WBC elevated 17: order to change baker catheter and obtain blood and urine cultures: Rocephin 1gm iv daily to follow cultures 04/13/16: monitor VS closely. Pt. afebrile however temp mildly elevated overnight. Chronic Baker in place, no sign of leakage. Ditropan 5mg PEG TID for leakage around catheter. Continue to monitor vital signs and wbc count (4) CAD (coronary artery disease) Cardiac stents on 06/13/15. Continue Lisinopril 5mg PEG daily Continue Plavix 75mg PEG daily Continue ASA 325mg PEG daily (5) Seizures Continue dilantin 100mg PEG TID Seizure precautions. (6) Bed sore Healed. continue wound care as needed, sensicare, and medihoney Sacral ulcer Stage II 0.5cm x 1.5cm- Healed. Continue repositioning of patient q2H. dolphin mattress. Heel air boots. (7) Prophylactic measure Lovenox 40 SC daily Pepcid 20 mg PEG BID [facility] <Donavan Hallman - Last Filed: 05/22/16 14:45> Objective - Vital Signs/Intake and Output Vital Signs (last 24 hours): Temp Pulse Resp BP Pulse Ox 98.7 F 81 20 102/67 99 05/22/16 00:02 05/22/16 08:00 05/22/16 00:02 05/22/16 00:02 05/22/16 00:02 Intake and Output: 05/22/16 05/22/16 06:59 18:59 Intake Total 1250 Output Total 800 Balance 450 - Medications Medications: Current Medications Aspirin (Aspirin Chewable) 81 mg PEG DAILY [facility] Last Admin: 05/22/16 10:31 Dose: 81 mg Clopidogrel Bisulfate (Plavix) 75 mg PEG DAILY [facility] Last Admin: 05/22/16 10:32 Dose: 75 mg Enoxaparin Sodium (Lovenox) 40 mg SC DAILY [facility] Last Admin: 05/22/16 10:31 Dose: 40 mg Famotidine (Pepcid) 20 mg PEG BID [facility] Last Admin: 05/22/16 10:32 Dose: 20 mg Mupirocin (Bactroban Ointment) 0 gm TOP DAILY [facility] Last Admin: 05/22/16 10:32 Dose: 1 applic Oxybutynin Chloride (Ditropan Tab) 5 mg PEG TID [facility] Last Admin: 05/22/16 13:59 Dose: 5 mg Phenytoin (Dilantin) 100 mg PEG TID [facility] Last Admin: 05/22/16 13:59 Dose: 100 mg - Labs Labs: 05/22/16 08:18 05/22/16 08:18 PT 10.6 SECONDS (9.7-12.2) 11/24/15 14:10 INR 1.0 11/24/15 14:10 APTT 25 SECONDS (21-34) 11/24/15 14:10 Attending/Attestation - Attestation I have personally seen and examined this patient.: Yes I have fully participated in the care of the patient.: Yes I have reviewed all pertinent clinical information, including history, physical exam and plan: Yes Notes (Text): Patient seen and examined with resident. Agree with resident's evaluation, assessment and plan.
[2016-04-17 07:10] LABS: BASO # 0.1 K/uL (0.0-0.2); BASO % 0.8 % (0.0-2.0); EOS # 0.6 K/uL (0.0-0.7); EOS % 7.4 % (0.0-4.0); HEMOGLOBIN 11.2 g/dL (12.0-18.0); LYMPH # 1.7 K/uL (1.0-4.3); LYMPH % 20.1 % (20.0-40.0); MEAN CORPUSCULAR HEMOGLOBIN 30.6 pg (27.0-31.0); MEAN CORPUSCULAR HGB CONC 33.2 g/dL (33.0-37.0); MONO # 0.9 K/uL (0.0-0.8); MONO % 11.2 % (0.0-10.0); NEUT # 5.1 K/uL (1.8-7.0); NEUT % 60.5 % (50.0-75.0); NRBC % 0.1 % (0.0-2.0); RBC 3.65 Mil/uL (4.40-5.90); RED CELL DISTRIBUTION WIDTH 14.6 % (11.5-14.5); WHITE BLOOD COUNT 8.4 K/uL (4.8-10.8)
[2016-04-17 07:12] LABS: ALBUMIN 3.1 g/dL (3.5-5.0)
[2016-04-17 07:15] LABS: ALB/GLOB RATIO 0.8 (1.0-2.1); AST/SGOT 33 U/L (17-59); BLOOD UREA NITROGEN 21 mg/dL (9-20); GFR NON-AFRICAN AMERICAN > 60
[2016-04-17 07:16] LABS: ALT/SGPT 77 U/L (21-72); CALCIUM 8.6 mg/dl (8.6-10.4)
[2016-04-17] MEDS: Enoxaparin 40 mg Syringe SC SCH (09:06)
[2016-04-17] MEDS: Phenytoin 100 mg/4 ml Oral Susp UD PEG SCH ×3 (09:06→17:44)
--- NOTE | 2016-04-17 10:00 | CP.PCM.PN ---
<Saba Ennis - Last Filed: 04/17/16 18:33> Subjective - Date & Time of Evaluation Date of Evaluation: 04/17/16 Time of Evaluation: 09:45 - Subjective Subjective: Patient seen and examined this morning while he was being changed. ROS unobtainable as patient is aphasic secondary to anoxic brain injury. No acute overnight events reported per nursing. Patient currently on Rocephin and Azithromycin. Baker in place with clear pale yellow output. Trach collar in place with moderately thick secretions. Objective - Vital Signs/Intake and Output Vital Signs (last 24 hours): Temp Pulse Resp BP Pulse Ox 98.8 F 90 20 132/67 98 04/17/16 07:45 04/17/16 07:45 04/17/16 07:45 04/17/16 07:45 04/17/16 07:45 Intake and Output: 04/17/16 04/17/16 06:59 18:59 Intake Total 600 Output Total 900 Balance -300 - Medications Medications: Current Medications Aspirin (Aspirin) 325 mg PEG DAILY [facility] Last Admin: 04/17/16 09:05 Dose: 325 mg Clopidogrel Bisulfate (Plavix) 75 mg PEG DAILY [facility] Last Admin: 04/17/16 09:05 Dose: 75 mg Enoxaparin Sodium (Lovenox) 40 mg SC DAILY [facility] Last Admin: 04/17/16 09:06 Dose: 40 mg Famotidine (Pepcid) 20 mg PEG BID [facility] Last Admin: 04/16/16 17:31 Dose: 20 mg Azithromycin 500 mg/ Sodium (Chloride) 250 mls @ 250 mls/hr IVPB DAILY [facility] Stop: 04/21/16 12:01 Last Admin: 04/16/16 13:55 Dose: 250 mls/hr Lisinopril (Zestril) 5 mg PEG DAILY [facility] Last Admin: 04/17/16 09:06 Dose: 5 mg Mupirocin (Bactroban Ointment) 1 gm TOP DAILY [facility] Last Admin: 04/17/16 09:08 Dose: 1 applic Oxybutynin Chloride (Ditropan Tab) 5 mg PEG TID [facility] Last Admin: 04/17/16 09:05 Dose: 5 mg Phenytoin (Dilantin) 100 mg PEG TID [facility] Last Admin: 04/17/16 09:06 Dose: 100 mg - Labs Labs: 04/17/16 06:57 04/17/16 06:57 PT 10.6 SECONDS (9.7-12.2) 11/24/15 14:10 INR 1.0 11/24/15 14:10 APTT 25 SECONDS (21-34) 11/24/15 14:10 - Constitutional Appears: Chronically Ill - Head Exam Head Exam: NORMAL INSPECTION - Eye Exam Eye Exam: Normal appearance Pupil Exam: PERRL - ENT Exam ENT Exam: Mucous Membranes Moist Additional comments: trach site covered with gauze, no signs of bleeding. tracheostomy tube with clear thick secretions, +gurgling sounds - Respiratory Exam Respiratory Exam: NORMAL BREATHING PATTERN. absent: Accessory Muscle Use Additional comments: coarse transmitted breath sounds bilaterally - Cardiovascular Exam Cardiovascular Exam: REGULAR RHYTHM, RRR, +S1, +S2 - GI/Abdominal Exam GI & Abdominal Exam: Soft, Normal Bowel Sounds. absent: Distended, Firm, Rigid Additional comments: PEG tube site, c/d/i, no surrounding erythema, no pus drainage - Extremities Exam Additional comments: bilateral foot drop, heel air boots bilateral LE - Skin Skin Exam: Normal Color, Warm. absent: Cyanosis Assessment and Plan - Assessment and Plan (Free Text) Assessment: (1) Anoxic encephalopathy 04/17: No acute change in mental status PEG tube operational, continue tube feedings @ 50cc/hr nightly with 300cc flushes Labs on Mondays and . PEG tube placed at bedside by Dr. Chan on 11/27/15 Pending placement (2) Respiratory Failure 04/17: Nursing informed to suction at least every four hours. Spoke with ID, Dr. Armstrong. Ordered CXR for tomorrow AM. Abx adjusted as below. Sputum cultures ordered - POSITIVE for gram positive cocci Urine cultures POSITIVE Pseudomonas and E. faecalis Rocephin 1gm IV started 04/14/16- discontinued 04/17/16 Azithromycin 500mg iv daily started 04/16/16 - discontinued 04/17/16 Monitor site for infection/inflammation. WBC elevated on 04/14/16, patient afebrile-repeat WBC 8.9 and afebrile 02/12 CXR: Linear atelectasis at the bases. Cardiomegaly. ID on case - Dr. Armstrong Sputum culture 12/06 + pseudomonas: probably colonization. No antibiotics per Dr. Armstrong tracheostomy with tube change by Dr. Chan on 11/27/15 (3) UTI 04/17: afebrile, leukocytosis resolved. urine culture positive for Pseudomonas and E. faecalis. Stop Azithromycin and Rocephin. Start Cipro 400mg IV q12h. Spoke with ID, Dr. Armstrong- agrees with cipro IV. Will also start Bacid to prevent secondary GI infection. 04/16: afebrile, leukocytosis resolved, cultures positive gram negative rods 04/15: afebrile. continue Rocephin. Cultures pending. CBC ordered for tomorrow to trend WBC count. 04/14: afebrile, WBC elevated 17: order to change baker catheter and obtain blood and urine cultures: Rocephin 1gm iv daily to follow cultures 04/13/16: monitor VS closely. Pt. afebrile however temp mildly elevated overnight. Chronic Ditropan 5mg PEG TID for leakage around catheter. Continue to monitor vital signs and wbc count (4) CAD (coronary artery disease) Cardiac stents on 06/13/15. Continue Lisinopril 5mg PEG daily Continue Plavix 75mg PEG daily Continue ASA 325mg PEG daily (5) Seizures Continue dilantin 100mg PEG TID Seizure precautions. (6) Bed sore Healed. continue wound care as needed, sensicare, and medihoney Sacral ulcer Stage II 0.5cm x 1.5cm- Healed. Continue repositioning of patient q2H. dolphin mattress. Heel air boots. (7) Prophylactic measure Lovenox 40 SC daily Pepcid 20 mg PEG BID [facility] <Donavan Hallman - Last Filed: 05/24/16 15:54> Objective - Vital Signs/Intake and Output Vital Signs (last 24 hours): Temp Pulse Resp BP Pulse Ox 98.5 F 76 20 128/82 100 05/24/16 08:19 05/24/16 08:19 05/24/16 08:19 05/24/16 08:19 05/24/16 08:19 Intake and Output: 05/24/16 05/24/16 06:59 18:59 Intake Total 1350 500 Output Total 1800 400 Balance -450 100 - Medications Medications: Current Medications Aspirin (Aspirin Chewable) 81 mg PEG DAILY [facility] Last Admin: 05/24/16 09:38 Dose: 81 mg Clopidogrel Bisulfate (Plavix) 75 mg PEG DAILY [facility] Last Admin: 05/24/16 09:43 Dose: 75 mg Famotidine (Pepcid) 20 mg PEG BID [facility] Last Admin: 05/24/16 09:40 Dose: 20 mg Mupirocin (Bactroban Ointment) 0 gm TOP DAILY [facility] Last Admin: 05/24/16 09:41 Dose: 1 applic Oxybutynin Chloride (Ditropan Tab) 5 mg PEG TID [facility] Last Admin: 05/24/16 13:19 Dose: 5 mg Phenytoin (Dilantin) 100 mg PEG TID [facility] Last Admin: 05/24/16 13:18 Dose: 100 mg - Labs Labs: 05/22/16 08:18 05/22/16 08:18 PT 10.6 SECONDS (9.7-12.2) 11/24/15 14:10 INR 1.0 11/24/15 14:10 APTT 25 SECONDS (21-34) 11/24/15 14:10 Attending/Attestation - Attestation I have personally seen and examined this patient.: Yes I have fully participated in the care of the patient.: Yes I have reviewed all pertinent clinical information, including history, physical exam and plan: Yes Notes (Text): Patient seen and examined with the resident and agree with the resident's evaluation assessment and plan.
[2016-04-17] MEDS: Ciprofloxacin 400mg/200ml D5W 200 ML IVPB SCH (12:53)
[2016-04-18] MEDS: Ciprofloxacin 400mg/200ml D5W 200 ML IVPB SCH ×3 (00:31→21:52)
[2016-04-18 08:31] LABS: HEMOGLOBIN 11.4 g/dL (12.0-18.0); MEAN CELL VOLUME 93.2 fL (80.0-94.0); MEAN CORPUSCULAR HEMOGLOBIN 30.1 pg (27.0-31.0); MEAN CORPUSCULAR HGB CONC 32.3 g/dL (33.0-37.0); RBC 3.8 Mil/uL (4.40-5.90); RED CELL DISTRIBUTION WIDTH 14.9 % (11.5-14.5); WHITE BLOOD COUNT 8.2 K/uL (4.8-10.8)
[2016-04-18 08:48] LABS: ALBUMIN 3.3 g/dL (3.5-5.0)
[2016-04-18 08:50] LABS: GFR NON-AFRICAN AMERICAN > 60
[2016-04-18 08:51] LABS: ALB/GLOB RATIO 0.9 (1.0-2.1); AST/SGOT 49 U/L (17-59); BLOOD UREA NITROGEN 18 mg/dL (9-20)
[2016-04-18 08:52] LABS: ALT/SGPT 63 U/L (21-72)
[2016-04-18 08:53] LABS: CALCIUM 8.7 mg/dl (8.6-10.4)
[2016-04-18] MEDS: Enoxaparin 40 mg Syringe SC SCH (09:35)
[2016-04-18] MEDS: Phenytoin 100 mg/4 ml Oral Susp UD PEG SCH ×3 (09:36→17:15)
[2016-04-18] MEDS: Lactobacillus Acidophilus 500 MU Cap PEG SCH ×2 (09:44→17:15)
--- NOTE | 2016-04-18 10:08 | CP.PCM.PN ---
<Saba Ennis - Last Filed: 04/18/16 10:27> Subjective - Date & Time of Evaluation Date of Evaluation: 04/18/16 Time of Evaluation: 10:15 - Subjective Subjective: Patient seen and examined this morning. Patient is neurologically impaired and apashic secondary to anoxic brain injury. Patient opens eyes to sternal rub. Trach/PEG/Baker in place. Objective - Vital Signs/Intake and Output Vital Signs (last 24 hours): Temp Pulse Resp BP Pulse Ox 98.4 F 88 20 116/78 100 04/18/16 07:05 04/18/16 07:05 04/18/16 07:05 04/18/16 07:05 04/18/16 07:05 Intake and Output: 04/18/16 04/18/16 06:59 18:59 Intake Total 1600 Output Total 1001 Balance 599 - Medications Medications: Current Medications Aspirin (Aspirin) 325 mg PEG DAILY [facility] Last Admin: 04/18/16 09:36 Dose: 325 mg Clopidogrel Bisulfate (Plavix) 75 mg PEG DAILY [facility] Last Admin: 04/18/16 09:36 Dose: 75 mg Enoxaparin Sodium (Lovenox) 40 mg SC DAILY [facility] Last Admin: 04/18/16 09:35 Dose: 40 mg Famotidine (Pepcid) 20 mg PEG BID [facility] Last Admin: 04/18/16 09:36 Dose: 20 mg Ciprofloxacin (Cipro 400mg/200ml Dsw) 200 mls @ 133 mls/hr IVPB Q12H [facility] Last Admin: 04/18/16 00:31 Dose: 133 mls/hr Lactobacillus Acidophilus (Bacid Acidophilus) 1 cap PEG BID [facility] Last Admin: 04/18/16 09:44 Dose: 1 cap Lisinopril (Zestril) 5 mg PEG DAILY [facility] Last Admin: 04/18/16 09:36 Dose: 5 mg Mupirocin (Bactroban Ointment) 1 gm TOP DAILY [facility] Last Admin: 04/18/16 09:38 Dose: 1 applic Oxybutynin Chloride (Ditropan Tab) 5 mg PEG TID [facility] Last Admin: 04/18/16 09:36 Dose: 5 mg Phenytoin (Dilantin) 100 mg PEG TID [facility] Last Admin: 04/18/16 09:36 Dose: 100 mg - Labs Labs: 04/18/16 08:22 04/18/16 08:22 PT 10.6 SECONDS (9.7-12.2) 11/24/15 14:10 INR 1.0 11/24/15 14:10 APTT 25 SECONDS (21-34) 11/24/15 14:10 - Constitutional Appears: Chronically Ill - Head Exam Head Exam: NORMAL INSPECTION - Eye Exam Eye Exam: absent: Scleral icterus Pupil Exam: Mydriatic - ENT Exam ENT Exam: Mucous Membranes Dry Additional comments: Trach collar secured and covered in dressing, c/d/i. No secretions seen in trach tube. - Respiratory Exam Respiratory Exam: Decreased Breath Sounds, NORMAL BREATHING PATTERN. absent: Respiratory Distress - Cardiovascular Exam Cardiovascular Exam: RRR, +S1, +S2. absent: Tachycardia, Murmur - GI/Abdominal Exam GI & Abdominal Exam: Soft, Normal Bowel Sounds. absent: Distended, Firm, Guarding, Rigid Additional comments: PEG tube site covered in dressing, c/d/i, no bleeding or pus drainage. No feedings running at this time - Extremities Exam Extremities Exam: Normal Inspection Additional comments: bilateral foot drop- heel air boots in place - Neurological Exam Neurological Exam: Altered (anoxic brain injury) Assessment and Plan - Assessment and Plan (Free Text) Assessment: (1) Anoxic encephalopathy 04/18: No acute change in mental status PEG tube operational, continue tube feedings @ 50cc/hr nightly with 300cc flushes Labs on Mondays and . PEG tube placed at bedside by Dr. Chan on 11/27/15 Pending placement (2) Respiratory Failure 04/18: CXR shows no active disease. No leukocytosis, afebrile. Continue suction q4h. 04/17: Nursing informed to suction at least every four hours. Spoke with ID, Dr. Armstrong. Ordered CXR for tomorrow AM. Abx adjusted as below. Sputum cultures ordered - POSITIVE for Pseudomonas [Note: patients with tracheostomy tubes usually grow Pseudomonas (colonized)- no aggressive treatment necessary if febrile or no leukocytosis] Rocephin 1gm IV started 04/14/16- discontinued 04/17/16 Azithromycin 500mg iv daily started 04/16/16 - discontinued 04/17/16 Monitor site for infection/inflammation. WBC elevated on 04/14/16, patient afebrile-repeat WBC 8.9 and afebrile 02/12 CXR: Linear atelectasis at the bases. Cardiomegaly. ID on case - Dr. Armstrong Sputum culture 12/06 + pseudomonas: probably colonization. No antibiotics per Dr. Armstrong tracheostomy with tube change by Dr. Chan on 11/27/15 (3) UTI 04/18: afebrile, no leukocytosis. As per ID, continue treatment with Cipro 400mg IV q12h for total of 7 days. Discontinue on April 24 after AM dose. 04/17: afebrile, leukocytosis resolved. Urine cultures POSITIVE Pseudomonas and E. faecalis. Stop Azithromycin and Rocephin. Start Cipro 400mg IV q12h. Spoke with ID, Dr. Armstrong- agrees with cipro IV. Will also start Bacid to prevent secondary GI infection. 04/16: afebrile, leukocytosis resolved, cultures positive gram negative rods 04/15: afebrile. continue Rocephin. Cultures pending. CBC ordered for tomorrow to trend WBC count. 04/14: afebrile, WBC elevated 17: order to change baker catheter and obtain blood and urine cultures: Rocephin 1gm iv daily to follow cultures 04/13/16: monitor VS closely. Pt. afebrile however temp mildly elevated overnight. Chronic Ditropan 5mg PEG TID for leakage around catheter. Continue to monitor vital signs and wbc count (4) CAD (coronary artery disease) Cardiac stents on 06/13/15. Continue Lisinopril 5mg PEG daily Continue Plavix 75mg PEG daily Continue ASA 325mg PEG daily (5) Seizures Continue dilantin 100mg PEG TID Seizure precautions. (6) Bed sore Healed. continue wound care as needed, [facility], and [facility] Sacral ulcer Stage II 0.5cm x 1.5cm- Healed. Continue repositioning of patient q2H. dolphin mattress. Heel air boots. (7) Prophylactic measure Lovenox 40 SC daily Pepcid 20 mg PEG BID [facility] <Donavan Hallman - Last Filed: 05/24/16 16:07> Objective - Vital Signs/Intake and Output Vital Signs (last 24 hours): Intake and Output: - Medications Medications: Current Medications Aspirin (Aspirin Chewable) 81 mg PEG DAILY [facility] Last Admin: 05/24/16 09:38 Dose: 81 mg Clopidogrel Bisulfate (Plavix) 75 mg PEG DAILY [facility] Last Admin: 05/24/16 09:43 Dose: 75 mg Famotidine (Pepcid) 20 mg PEG BID [facility] Last Admin: 05/24/16 09:40 Dose: 20 mg Mupirocin (Bactroban Ointment) 0 gm TOP DAILY [facility] Last Admin: 05/24/16 09:41 Dose: 1 applic Oxybutynin Chloride (Ditropan Tab) 5 mg PEG TID [facility] Last Admin: 05/24/16 13:19 Dose: 5 mg Phenytoin (Dilantin) 100 mg PEG TID [facility] Last Admin: 05/24/16 13:18 Dose: 100 mg - Labs Labs: 05/22/16 08:18 05/22/16 08:18 Attending/Attestation - Attestation I have personally seen and examined this patient.: Yes I have fully participated in the care of the patient.: Yes I have reviewed all pertinent clinical information, including history, physical exam and plan: Yes Notes (Text): Patient seen and examined with the resident and agree with the resident's evaluation assessment and plan.
--- NOTE | 2016-04-18 10:20 | RAD ---
HISTORY: thick secretions COMPARISON: Multiple priors FINDINGS: LUNGS: No active pulmonary disease. PLEURA: No significant pleural effusion identified, no pneumothorax apparent. CARDIOVASCULAR: Normal. OSSEOUS STRUCTURES: No significant abnormalities. VISUALIZED UPPER ABDOMEN: Normal. OTHER FINDINGS: There is a tracheostomy tube. IMPRESSION: No active disease.
--- NOTE | 2016-04-19 07:42 | CP.PCM.PN ---
"<Howard Lopez - Last Filed: 04/19/16 10:47> Subjective - Date & Time of Evaluation Date of Evaluation: 04/19/16 Time of Evaluation: 07:42 - Subjective Subjective: PGY1 Medicine Progress Note | Dr. Rodrigues's Service Patient seen and examined at bedside. At the time of exam, patient was asleep in bed in NAD with trach collar, PEG tube, and baker in place. There is no acute change in clinical status. Patient not rousable, no response to verbal/ tactile/painful stimuli. ROS unobtainable as patient is non-conversant. Objective - Vital Signs/Intake and Output Vital Signs (last 24 hours): Temp Pulse Resp BP Pulse Ox 98.6 F 88 20 114/76 97 04/19/16 07:33 04/19/16 07:33 04/19/16 07:33 04/19/16 07:33 04/19/16 07:33 Intake and Output: 04/19/16 04/19/16 06:59 18:59 Intake Total 1350 Output Total 1100 Balance 250 - Medications Medications: Current Medications Aspirin (Aspirin) 325 mg PEG DAILY [facility] Last Admin: 04/18/16 09:36 Dose: 325 mg Clopidogrel Bisulfate (Plavix) 75 mg PEG DAILY [facility] Last Admin: 04/18/16 09:36 Dose: 75 mg Enoxaparin Sodium (Lovenox) 40 mg SC DAILY [facility] Last Admin: 04/18/16 09:35 Dose: 40 mg Famotidine (Pepcid) 20 mg PEG BID [facility] Last Admin: 04/18/16 17:15 Dose: 20 mg Ciprofloxacin (Cipro 400mg/200ml Dsw) 200 mls @ 133 mls/hr IVPB Q12H [facility] Stop: 04/24/16 12:31 Last Admin: 04/18/16 21:52 Dose: 133 mls/hr Lactobacillus Acidophilus (Bacid Acidophilus) 1 cap PEG BID [facility] Last Admin: 04/18/16 17:15 Dose: 1 cap Lisinopril (Zestril) 5 mg PEG DAILY [facility] Last Admin: 04/18/16 09:36 Dose: 5 mg Mupirocin (Bactroban Ointment) 1 gm TOP DAILY [facility] Last Admin: 04/18/16 09:38 Dose: 1 applic Oxybutynin Chloride (Ditropan Tab) 5 mg PEG TID [facility] Last Admin: 04/18/16 17:15 Dose: 5 mg Phenytoin (Dilantin) 100 mg PEG TID [facility] Last Admin: 04/18/16 17:15 Dose: 100 mg - Labs Labs: 04/18/16 08:22 04/18/16 08:22 PT 10.6 SECONDS (9.7-12.2) 11/24/15 14:10 INR 1.0 11/24/15 14:10 APTT 25 SECONDS (21-34) 11/24/15 14:10 - Constitutional Appears: No Acute Distress, Chronically Ill - Head Exam Head Exam: ATRAUMATIC, NORMOCEPHALIC - ENT Exam ENT Exam: Mucous Membranes Dry Additional comments: trach collar in place, no secretions/blood observed in tubing. - Respiratory Exam Respiratory Exam: Decreased Breath Sounds, NORMAL BREATHING PATTERN. absent: Rales, Rhonchi, Wheezes - Cardiovascular Exam Cardiovascular Exam: REGULAR RHYTHM, +S1, +S2. absent: Gallop, Rubs, Murmur - GI/Abdominal Exam GI & Abdominal Exam: Soft, Normal Bowel Sounds. absent: Distended, Guarding, Rebound Additional comments: PEG tube in place, no erythema, discharge appreciated. - Neurological Exam Neurological Exam: Altered - Psychiatric Exam Psychiatric exam: Normal Mood - Skin Skin Exam: Dry, Warm Assessment and Plan - Assessment and Plan (Free Text) Assessment: (1) Anoxic encephalopathy 04/19/16: No acute change in mental status PEG tube operational, continue tube feedings @ 50cc/hr nightly with 300cc flushes Labs on Mondays and . PEG tube placed at bedside by Dr. Chan on 11/27/15 Pending placement (2) Respiratory Failure 04/18: CXR shows no active disease. No leukocytosis, afebrile. Continue suction q4h. 04/17: Nursing informed to suction at least every four hours. Spoke with ID, Dr. Armstrong. Ordered CXR for tomorrow AM. Abx adjusted as below. Sputum cultures ordered - POSITIVE for Pseudomonas [Note: patients with tracheostomy tubes usually grow Pseudomonas (colonized)- no aggressive treatment necessary if febrile or no leukocytosis] Rocephin 1gm IV started 04/14/16- discontinued 04/17/16 Azithromycin 500mg iv daily started 04/16/16 - discontinued 04/17/16 Monitor site for infection/inflammation. WBC elevated on 04/14/16, patient afebrile-repeat WBC 8.9 and afebrile 02/12 CXR: Linear atelectasis at the bases. Cardiomegaly. ID on case - Dr. Armstrong Sputum culture 12/06 + pseudomonas: probably colonization. No antibiotics per Dr. Armstrong tracheostomy with tube change by Dr. Chan on 11/27/15 (3) UTI 04/18: afebrile, no leukocytosis. As per ID, continue treatment with Cipro 400mg IV q12h for total of 7 days. Discontinue on April 24 after AM dose. 04/17: afebrile, leukocytosis resolved. Urine cultures POSITIVE Pseudomonas and E. faecalis. Stop Azithromycin and Rocephin. Start Cipro 400mg IV q12h. Spoke with ID, Dr. Armstrong- agrees with cipro IV. Will also start Bacid to prevent secondary GI infection. 04/16: afebrile, leukocytosis resolved, cultures positive gram negative rods 04/15: afebrile. continue Rocephin. Cultures pending. CBC ordered for tomorrow to trend WBC count. 04/14: afebrile, WBC elevated 17: order to change baker catheter and obtain blood and urine cultures: Rocephin 1gm iv daily to follow cultures 04/13/16: monitor VS closely. Pt. afebrile however temp mildly elevated overnight. Chronic Ditropan 5mg PEG TID for leakage around catheter. Continue to monitor vital signs and wbc count (4) CAD (coronary artery disease) Cardiac stents on 06/13/15. Continue Lisinopril 5mg PEG daily Continue Plavix 75mg PEG daily Continue ASA 325mg PEG daily (5) Seizures Continue dilantin 100mg PEG TID Seizure precautions. (6) Bed sore Healed. continue wound care as needed, [facility], and [facility] Sacral ulcer Stage II 0.5cm x 1.5cm- Healed. Continue repositioning of patient q2H. dolphin mattress. Heel air boots. (7) Prophylactic measure Lovenox 40 SC daily Pepcid 20 mg PEG BID [facility] <Rashel Rodrigues - Last Filed: 04/19/16 14:47> Objective - Vital Signs/Intake and Output Vital Signs (last 24 hours): Temp Pulse Resp BP Pulse Ox 98.6 F 88 20 114/76 97 04/19/16 07:33 04/19/16 07:33 04/19/16 07:33 04/19/16 07:33 04/19/16 07:33 Intake and Output: 04/19/16 04/19/16 06:59 18:59 Intake Total 1350 1000 Output Total 1100 300 Balance 250 700 - Medications Medications: Current Medications Aspirin (Aspirin) 325 mg PEG DAILY [facility] Last Admin: 04/19/16 09:53 Dose: 325 mg Clopidogrel Bisulfate (Plavix) 75 mg PEG DAILY [facility] Last Admin: 04/19/16 09:53 Dose: 75 mg Enoxaparin Sodium (Lovenox) 40 mg SC DAILY [facility] Last Admin: 04/19/16 09:53 Dose: 40 mg Famotidine (Pepcid) 20 mg PEG BID [facility] Last Admin: 04/19/16 09:53 Dose: 20 mg Ciprofloxacin (Cipro 400mg/200ml Dsw) 200 mls @ 133 mls/hr IVPB Q12H [facility] Stop: 04/24/16 12:31 Last Admin: 04/19/16 11:02 Dose: 133 mls/hr Lactobacillus Acidophilus (Bacid Acidophilus) 1 cap PEG BID [facility] Last Admin: 04/19/16 09:53 Dose: 1 cap Lisinopril (Zestril) 5 mg PEG DAILY [facility] Last Admin: 04/19/16 09:53 Dose: 5 mg Mupirocin (Bactroban Ointment) 1 gm TOP DAILY [facility] Last Admin: 04/19/16 09:55 Dose: 1 applic Oxybutynin Chloride (Ditropan Tab) 5 mg PEG TID [facility] Last Admin: 04/19/16 13:26 Dose: 5 mg Phenytoin (Dilantin) 100 mg PEG TID [facility] Last Admin: 04/19/16 13:26 Dose: 100 mg - Labs Labs: 04/18/16 08:22 04/19/16 08:22 PT 10.6 SECONDS (9.7-12.2) 11/24/15 14:10 INR 1.0 11/24/15 14:10 APTT 25 SECONDS (21-34) 11/24/15 14:10 Attending/Attestation - Attestation I have personally seen and examined this patient.: Yes I have fully participated in the care of the patient.: Yes I have reviewed all pertinent clinical information, including history, physical exam and plan: Yes"
[2016-04-19 08:49] LABS: ALBUMIN 3.1 g/dL (3.5-5.0)
[2016-04-19 08:51] LABS: GFR NON-AFRICAN AMERICAN > 60
[2016-04-19 08:52] LABS: ALB/GLOB RATIO 0.8 (1.0-2.1); ALT/SGPT 84 U/L (21-72); AST/SGOT 34 U/L (17-59); BLOOD UREA NITROGEN 21 mg/dL (9-20)
[2016-04-19 08:53] LABS: CALCIUM 8.7 mg/dl (8.6-10.4)
[2016-04-19] MEDS: Lactobacillus Acidophilus 500 MU Cap PEG SCH ×2 (09:53→18:39)
[2016-04-19] MEDS: Enoxaparin 40 mg Syringe SC SCH (09:53)
[2016-04-19] MEDS: Phenytoin 100 mg/4 ml Oral Susp UD PEG SCH ×3 (09:53→18:39)
[2016-04-19] MEDS: Ciprofloxacin 400mg/200ml D5W 200 ML IVPB SCH ×2 (11:02→22:02)
--- NOTE | 2016-04-20 06:36 | CP.PCM.PN ---
"<Howard Lopez - Last Filed: 04/20/16 07:58> Subjective - Date & Time of Evaluation Date of Evaluation: 04/20/16 Time of Evaluation: 06:37 - Subjective Subjective: PGY1 Medicine Progress Note | Dr. Rodrigues's Service Patient seen and examined at bedside. At the time of exam, patient was asleep in bed in NAD with trach collar, PEG tube, and baker in place. No acute change in clinical status. Patient not rousable, no response to verbal/tactile/painful stimuli. ROS unobtainable as patient is non-conversant. PEG tube running at 50cc /hr. Objective - Vital Signs/Intake and Output Vital Signs (last 24 hours): Temp Pulse Resp BP Pulse Ox 98.9 F 91 H 20 110/69 94 L 04/20/16 00:01 04/20/16 00:01 04/20/16 00:01 04/20/16 00:01 04/20/16 00:01 Intake and Output: 04/19/16 04/20/16 18:59 06:59 Intake Total 1000 1600 Output Total 300 1500 Balance 700 100 - Medications Medications: Current Medications Aspirin (Aspirin) 325 mg PEG DAILY [facility] Last Admin: 04/19/16 09:53 Dose: 325 mg Clopidogrel Bisulfate (Plavix) 75 mg PEG DAILY [facility] Last Admin: 04/19/16 09:53 Dose: 75 mg Enoxaparin Sodium (Lovenox) 40 mg SC DAILY [facility] Last Admin: 04/19/16 09:53 Dose: 40 mg Famotidine (Pepcid) 20 mg PEG BID [facility] Last Admin: 04/19/16 18:39 Dose: 20 mg Ciprofloxacin (Cipro 400mg/200ml Dsw) 200 mls @ 133 mls/hr IVPB Q12H [facility] Stop: 04/24/16 12:31 Last Admin: 04/19/16 22:02 Dose: 133 mls/hr Lactobacillus Acidophilus (Bacid Acidophilus) 1 cap PEG BID [facility] Last Admin: 04/19/16 18:39 Dose: 1 cap Lisinopril (Zestril) 5 mg PEG DAILY [facility] Last Admin: 04/19/16 09:53 Dose: 5 mg Mupirocin (Bactroban Ointment) 1 gm TOP DAILY [facility] Last Admin: 04/19/16 09:55 Dose: 1 applic Oxybutynin Chloride (Ditropan Tab) 5 mg PEG TID [facility] Last Admin: 04/19/16 18:39 Dose: 5 mg Phenytoin (Dilantin) 100 mg PEG TID [facility] Last Admin: 04/19/16 18:39 Dose: 100 mg - Labs Labs: 04/18/16 08:22 04/19/16 08:22 PT 10.6 SECONDS (9.7-12.2) 11/24/15 14:10 INR 1.0 11/24/15 14:10 APTT 25 SECONDS (21-34) 11/24/15 14:10 - Additional Findings Additional findings: - Constitutional Appears: No Acute Distress, Chronically Ill - Head Exam Head Exam: ATRAUMATIC, NORMOCEPHALIC - ENT Exam ENT Exam: Mucous Membranes Dry Additional comments: trach collar in place, no secretions/blood observed in tubing. - Respiratory Exam Respiratory Exam: Decreased Breath Sounds, NORMAL BREATHING PATTERN. absent: Rales, Rhonchi, Wheezes - Cardiovascular Exam Cardiovascular Exam: REGULAR RHYTHM, +S1, +S2. absent: Gallop, Rubs, Murmur - GI/Abdominal Exam GI & Abdominal Exam: Soft, Normal Bowel Sounds. absent: Distended, Guarding, Rebound Additional comments: PEG tube in place, no erythema, discharge appreciated. Tube feed running at 50cc/hr - Neurological Exam Neurological Exam: Altered - Skin Skin Exam: Dry, Warm Assessment and Plan - Assessment and Plan (Free Text) Assessment: (1) Anoxic encephalopathy 04/20/16: No acute change in mental status PEG tube operational, continue tube feedings @ 50cc/hr nightly with 300cc flushes Labs on Mondays and . PEG tube placed at bedside by Dr. Chan on 11/27/15 Pending placement (2) Respiratory Failure 04/18: CXR shows no active disease. No leukocytosis, afebrile. Continue suction q4h. 04/17: Nursing informed to suction at least every four hours. Spoke with ID, Dr. Armstrong. Ordered CXR for tomorrow AM. Abx adjusted as below. Sputum cultures ordered - POSITIVE for Pseudomonas [Note: patients with tracheostomy tubes usually grow Pseudomonas (colonized)- no aggressive treatment necessary if febrile or no leukocytosis] Rocephin 1gm IV started 04/14/16- discontinued 04/17/16 Azithromycin 500mg iv daily started 04/16/16 - discontinued 04/17/16 Monitor site for infection/inflammation. WBC elevated on 04/14/16, patient afebrile-repeat WBC 8.9 and afebrile 02/12 CXR: Linear atelectasis at the bases. Cardiomegaly. ID on case - Dr. Armstrong Sputum culture 12/06 + pseudomonas: probably colonization. No antibiotics per Dr. Armstrong tracheostomy with tube change by Dr. Chan on 11/27/15 (3) UTI 04/18: afebrile, no leukocytosis. As per ID, continue treatment with Cipro 400mg IV q12h for total of 7 days. Discontinue on April 24 after AM dose. 04/17: afebrile, leukocytosis resolved. Urine cultures POSITIVE Pseudomonas and E. faecalis. Stop Azithromycin and Rocephin. Start Cipro 400mg IV q12h. Spoke with ID, Dr. Armstrong- agrees with cipro IV. Will also start Bacid to prevent secondary GI infection. 04/16: afebrile, leukocytosis resolved, cultures positive gram negative rods 04/15: afebrile. continue Rocephin. Cultures pending. CBC ordered for tomorrow to trend WBC count. 04/14: afebrile, WBC elevated 17: order to change baker catheter and obtain blood and urine cultures: Rocephin 1gm iv daily to follow cultures 04/13/16: monitor VS closely. Pt. afebrile however temp mildly elevated overnight. Chronic Ditropan 5mg PEG TID for leakage around catheter. Continue to monitor vital signs and wbc count (4) CAD (coronary artery disease) Cardiac stents on 06/13/15. Continue Lisinopril 5mg PEG daily Continue Plavix 75mg PEG daily Continue ASA 325mg PEG daily (5) Seizures Continue dilantin 100mg PEG TID Seizure precautions. (6) Bed sore Healed. continue wound care as needed, [facility], and [facility] Sacral ulcer Stage II 0.5cm x 1.5cm- Healed. Continue repositioning of patient q2H. dolphin mattress. Heel air boots. (7) Prophylactic measure Lovenox 40 SC daily Pepcid 20 mg PEG BID [facility] <Nyunt,Rashel - Last Filed: 04/20/16 17:09> Objective - Vital Signs/Intake and Output Vital Signs (last 24 hours): Temp Pulse Resp BP Pulse Ox 99.2 F 92 H 20 113/74 97 04/20/16 15:00 04/20/16 15:00 04/20/16 15:00 04/20/16 15:00 04/20/16 15:00 Intake and Output: 04/20/16 04/20/16 06:59 18:59 Intake Total 1600 950 Output Total 1500 800 Balance 100 150 - Medications Medications: Current Medications Aspirin (Aspirin) 325 mg PEG DAILY [facility] Last Admin: 04/20/16 09:11 Dose: 325 mg Clopidogrel Bisulfate (Plavix) 75 mg PEG DAILY [facility] Last Admin: 04/20/16 09:12 Dose: 75 mg Enoxaparin Sodium (Lovenox) 40 mg SC DAILY [facility] Last Admin: 04/20/16 09:12 Dose: 40 mg Famotidine (Pepcid) 20 mg PEG BID [facility] Last Admin: 04/20/16 09:12 Dose: 20 mg Ciprofloxacin (Cipro 400mg/200ml Dsw) 200 mls @ 133 mls/hr IVPB Q12H [facility] Stop: 04/24/16 12:31 Last Admin: 04/20/16 10:24 Dose: 133 mls/hr Lactobacillus Acidophilus (Bacid Acidophilus) 1 cap PEG BID [facility] Last Admin: 04/20/16 09:11 Dose: 1 cap Lisinopril (Zestril) 5 mg PEG DAILY [facility] Last Admin: 04/20/16 09:11 Dose: 5 mg Mupirocin (Bactroban Ointment) 1 gm TOP DAILY [facility] Last Admin: 04/20/16 10:24 Dose: 1 applic Oxybutynin Chloride (Ditropan Tab) 5 mg PEG TID [facility] Last Admin: 04/20/16 14:14 Dose: 5 mg Phenytoin (Dilantin) 100 mg PEG TID [facility] Last Admin: 04/20/16 14:14 Dose: 100 mg - Labs Labs: 04/20/16 08:42 04/20/16 08:38 PT 10.6 SECONDS (9.7-12.2) 11/24/15 14:10 INR 1.0 11/24/15 14:10 APTT 25 SECONDS (21-34) 11/24/15 14:10 Attending/Attestation - Attestation I have personally seen and examined this patient.: Yes I have fully participated in the care of the patient.: Yes I have reviewed all pertinent clinical information, including history, physical exam and plan: Yes"
[2016-04-20 08:48] LABS: BASO % 0.3 % (0.0-2.0); EOS # 0.5 K/uL (0.0-0.7); EOS % 4.8 % (0.0-4.0); LYMPH # 1.8 K/uL (1.0-4.3); LYMPH % 17.2 % (20.0-40.0); MEAN CELL VOLUME 93.1 fL (80.0-94.0); MEAN CORPUSCULAR HEMOGLOBIN 30.6 pg (27.0-31.0); MEAN CORPUSCULAR HGB CONC 32.9 g/dL (33.0-37.0); MONO # 0.9 K/uL (0.0-0.8); MONO % 8.7 % (0.0-10.0); NEUT # 7.2 K/uL (1.8-7.0); RBC 3.92 Mil/uL (4.40-5.90); RED CELL DISTRIBUTION WIDTH 14.6 % (11.5-14.5); WHITE BLOOD COUNT 10.4 K/uL (4.8-10.8)
[2016-04-20] MEDS: Phenytoin 100 mg/4 ml Oral Susp UD PEG SCH ×3 (09:10→17:58)
[2016-04-20] MEDS: Lactobacillus Acidophilus 500 MU Cap PEG SCH ×2 (09:11→17:58)
[2016-04-20] MEDS: Enoxaparin 40 mg Syringe SC SCH (09:12)
[2016-04-20 09:21] LABS: AST/SGOT 37 U/L (17-59); GFR NON-AFRICAN AMERICAN > 60
[2016-04-20 09:22] LABS: ALT/SGPT 71 U/L (21-72); BLOOD UREA NITROGEN 19 mg/dL (9-20); CALCIUM 8.4 mg/dl (8.6-10.4)
[2016-04-20 09:24] LABS: ALB/GLOB RATIO 0.8 (1.0-2.1)
[2016-04-20] MEDS: Ciprofloxacin 400mg/200ml D5W 200 ML IVPB SCH ×2 (10:24→22:06)
--- NOTE | 2016-04-21 04:37 | CP.PCM.PN ---
<Joel Lin H - Last Filed: 04/21/16 06:40> Subjective - Date & Time of Evaluation Date of Evaluation: 04/21/16 Time of Evaluation: 05:40 - Subjective Subjective: Patient seen in room. He is in bed asleep. He is non verbal. He does open his eyes spontaneously. Objective - Vital Signs/Intake and Output Vital Signs (last 24 hours): Temp Pulse Resp BP Pulse Ox 98.4 F 88 20 99/67 L 98 04/20/16 23:30 04/20/16 23:30 04/20/16 23:30 04/20/16 23:30 04/20/16 23:30 Intake and Output: 04/20/16 04/21/16 18:59 06:59 Intake Total 950 950 Output Total 800 1450 Balance 150 -500 - Medications Medications: Current Medications Aspirin (Aspirin) 325 mg PEG DAILY [facility] Last Admin: 04/20/16 09:11 Dose: 325 mg Clopidogrel Bisulfate (Plavix) 75 mg PEG DAILY [facility] Last Admin: 04/20/16 09:12 Dose: 75 mg Enoxaparin Sodium (Lovenox) 40 mg SC DAILY [facility] Last Admin: 04/20/16 09:12 Dose: 40 mg Famotidine (Pepcid) 20 mg PEG BID [facility] Last Admin: 04/20/16 17:57 Dose: 20 mg Ciprofloxacin (Cipro 400mg/200ml Dsw) 200 mls @ 133 mls/hr IVPB Q12H [facility] Stop: 04/24/16 12:31 Last Admin: 04/20/16 22:06 Dose: 133 mls/hr Lactobacillus Acidophilus (Bacid Acidophilus) 1 cap PEG BID [facility] Last Admin: 04/20/16 17:58 Dose: 1 cap Lisinopril (Zestril) 5 mg PEG DAILY [facility] Last Admin: 04/20/16 09:11 Dose: 5 mg Mupirocin (Bactroban Ointment) 1 gm TOP DAILY [facility] Last Admin: 04/20/16 10:24 Dose: 1 applic Oxybutynin Chloride (Ditropan Tab) 5 mg PEG TID [facility] Last Admin: 04/20/16 17:57 Dose: 5 mg Phenytoin (Dilantin) 100 mg PEG TID [facility] Last Admin: 04/20/16 17:58 Dose: 100 mg - Labs Labs: 04/20/16 08:42 04/20/16 08:38 PT 10.6 SECONDS (9.7-12.2) 11/24/15 14:10 INR 1.0 11/24/15 14:10 APTT 25 SECONDS (21-34) 11/24/15 14:10 - Head Exam Head Exam: ATRAUMATIC, NORMAL INSPECTION, NORMOCEPHALIC - Eye Exam Eye Exam: Normal appearance Pupil Exam: NORMAL ACCOMODATION - Respiratory Exam Respiratory Exam: Clear to Ausculation Bilateral. absent: Rales, Rhonchi, Wheezes - Cardiovascular Exam Cardiovascular Exam: REGULAR RHYTHM, RRR. absent: Rubs, +S1, +S2 - GI/Abdominal Exam GI & Abdominal Exam: Soft, Normal Bowel Sounds - Extremities Exam Extremities Exam: Normal Inspection. absent: Pedal Edema - Skin Skin Exam: Dry, Normal Color, Warm Assessment and Plan - Assessment and Plan (Free Text) Assessment: (1) Anoxic encephalopathy 04/21/2016: No acute changes in mental status 04/20/16: No acute change in mental status PEG tube operational, continue tube feedings @ 50cc/hr nightly with 300cc flushes Labs on Mondays and . PEG tube placed at bedside by Dr. Chan on 11/27/15 Pending placement (2) Respiratory Failure 04/21: breath sounds are clear, patient is afebrile, no luekocytosis. 04/18: CXR shows no active disease. No leukocytosis, afebrile. Continue suction q4h. 04/17: Nursing informed to suction at least every four hours. Spoke with ID, Dr. Armstrong. Ordered CXR for tomorrow AM. Abx adjusted as below. Sputum cultures ordered - POSITIVE for Pseudomonas [Note: patients with tracheostomy tubes usually grow Pseudomonas (colonized)- no aggressive treatment necessary if febrile or no leukocytosis] Rocephin 1gm IV started 04/14/16- discontinued 04/17/16 Azithromycin 500mg iv daily started 04/16/16 - discontinued 04/17/16 Monitor site for infection/inflammation. WBC elevated on 04/14/16, patient afebrile-repeat WBC 8.9 and afebrile 02/12 CXR: Linear atelectasis at the bases. Cardiomegaly. ID on case - Dr. Armstrong Sputum culture 1/14 + pseudomonas: probably colonization. No antibiotics per Dr. Armstrong tracheostomy with tube change by Dr. Chan on 11/27/15 (3) UTI 04/18: afebrile, no leukocytosis. As per ID, continue treatment with Cipro 400mg IV q12h for total of 7 days. Discontinue on April 24 after AM dose. 04/17: afebrile, leukocytosis resolved. Urine cultures POSITIVE Pseudomonas and E. faecalis. Stop Azithromycin and Rocephin. Start Cipro 400mg IV q12h. Spoke with ID, Dr. Armstrong- agrees with cipro IV. Will also start Bacid to prevent secondary GI infection. 04/16: afebrile, leukocytosis resolved, cultures positive gram negative rods 04/15: afebrile. continue Rocephin. Cultures pending. CBC ordered for tomorrow to trend WBC count. 04/14: afebrile, WBC elevated 17: order to change baker catheter and obtain blood and urine cultures: Rocephin 1gm iv daily to follow cultures 04/13/16: monitor VS closely. Pt. afebrile however temp mildly elevated overnight. Chronic Ditropan 5mg PEG TID for leakage around catheter. Continue to monitor vital signs and wbc count (4) CAD (coronary artery disease) Cardiac stents on 06/13/15. Continue Lisinopril 5mg PEG daily Continue Plavix 75mg PEG daily Continue ASA 325mg PEG daily (5) Seizures Continue dilantin 100mg PEG TID Seizure precautions. (6) Bed sore Healed. continue wound care as needed, [facility], and [facility] Sacral ulcer Stage II 0.5cm x 1.5cm- Healed. Continue repositioning of patient q2H. dolphin mattress. Heel air boots. (7) Prophylactic measure Lovenox 40 SC daily Pepcid 20 mg PEG BID [facility] <Rashel Rodrigues - Last Filed: 04/21/16 17:12> Objective - Vital Signs/Intake and Output Vital Signs (last 24 hours): Temp Pulse Resp BP Pulse Ox 98.8 F 92 H 20 100/63 98 04/21/16 16:10 04/21/16 16:10 04/21/16 16:10 04/21/16 16:10 04/21/16 16:10 Intake and Output: 04/21/16 04/21/16 06:59 18:59 Intake Total 1550 650 Output Total 1850 801 Balance -300 -151 - Medications Medications: Current Medications Aspirin (Aspirin) 325 mg PEG DAILY [facility] Last Admin: 04/21/16 09:57 Dose: 325 mg Clopidogrel Bisulfate (Plavix) 75 mg PEG DAILY [facility] Last Admin: 04/21/16 09:57 Dose: 75 mg Enoxaparin Sodium (Lovenox) 40 mg SC DAILY [facility] Last Admin: 04/21/16 09:58 Dose: 40 mg Famotidine (Pepcid) 20 mg PEG BID [facility] Last Admin: 04/21/16 09:57 Dose: 20 mg Ciprofloxacin (Cipro 400mg/200ml Dsw) 200 mls @ 133 mls/hr IVPB Q12H [facility] Stop: 04/24/16 12:31 Last Admin: 04/21/16 10:37 Dose: 133 mls/hr Lactobacillus Acidophilus (Bacid Acidophilus) 1 cap PEG BID [facility] Last Admin: 04/21/16 10:38 Dose: 1 cap Lisinopril (Zestril) 5 mg PEG DAILY [facility] Last Admin: 04/21/16 09:58 Dose: 5 mg Mupirocin (Bactroban Ointment) 1 gm TOP DAILY [facility] Last Admin: 04/21/16 10:38 Dose: 1 applic Oxybutynin Chloride (Ditropan Tab) 5 mg PEG TID [facility] Last Admin: 04/21/16 14:21 Dose: 5 mg Phenytoin (Dilantin) 100 mg PEG TID [facility] Last Admin: 04/21/16 14:22 Dose: 100 mg - Labs Labs: 04/21/16 08:09 04/21/16 08:09 PT 10.6 SECONDS (9.7-12.2) 11/24/15 14:10 INR 1.0 11/24/15 14:10 APTT 25 SECONDS (21-34) 11/24/15 14:10 Attending/Attestation - Attestation I have personally seen and examined this patient.: Yes I have fully participated in the care of the patient.: Yes I have reviewed all pertinent clinical information, including history, physical exam and plan: Yes
[2016-04-21 08:17] LABS: BASO % 0.2 % (0.0-2.0); EOS # 0.6 K/uL (0.0-0.7); EOS % 5.1 % (0.0-4.0); HEMOGLOBIN 11.7 g/dL (12.0-18.0); LYMPH # 2.2 K/uL (1.0-4.3); LYMPH % 17.4 % (20.0-40.0); MEAN CELL VOLUME 93.1 fL (80.0-94.0); MEAN CORPUSCULAR HEMOGLOBIN 30.2 pg (27.0-31.0); MEAN CORPUSCULAR HGB CONC 32.5 g/dL (33.0-37.0); MEAN PLATELET VOLUME 7.7 fL (7.2-11.7); MONO # 1.2 K/uL (0.0-0.8); MONO % 9.8 % (0.0-10.0); NEUT # 8.5 K/uL (1.8-7.0); NEUT % 67.5 % (50.0-75.0); RBC 3.88 Mil/uL (4.40-5.90); RED CELL DISTRIBUTION WIDTH 14.8 % (11.5-14.5); WHITE BLOOD COUNT 12.6 K/uL (4.8-10.8)
[2016-04-21 08:39] LABS: ALB/GLOB RATIO 0.8 (1.0-2.1); ALT/SGPT 65 U/L (21-72); AST/SGOT 25 U/L (17-59); BLOOD UREA NITROGEN 16 mg/dL (9-20); GFR NON-AFRICAN AMERICAN > 60
[2016-04-21 08:40] LABS: CALCIUM 8.7 mg/dl (8.6-10.4)
[2016-04-21] MEDS: Phenytoin 100 mg/4 ml Oral Susp UD PEG SCH ×3 (09:57→18:21)
[2016-04-21] MEDS: Enoxaparin 40 mg Syringe SC SCH (09:58)
[2016-04-21] MEDS: Ciprofloxacin 400mg/200ml D5W 200 ML IVPB SCH ×2 (10:37→21:54)
[2016-04-21] MEDS: Lactobacillus Acidophilus 500 MU Cap PEG SCH ×2 (10:38→18:21)
[2016-04-22 08:02] LABS: ALB/GLOB RATIO 0.8 (1.0-2.1); ALT/SGPT 57 U/L (21-72); AST/SGOT 25 U/L (17-59); BLOOD UREA NITROGEN 19 mg/dL (9-20); GFR NON-AFRICAN AMERICAN > 60
[2016-04-22 08:03] LABS: CALCIUM 8.4 mg/dl (8.6-10.4)
[2016-04-22] MEDS: Phenytoin 100 mg/4 ml Oral Susp UD PEG SCH ×3 (10:40→17:30)
[2016-04-22] MEDS: Enoxaparin 40 mg Syringe SC SCH (10:40)
[2016-04-22] MEDS: Lactobacillus Acidophilus 500 MU Cap PEG SCH ×3 (10:41→18:00)
[2016-04-22] MEDS: Ciprofloxacin 400mg/200ml D5W 200 ML IVPB SCH (10:42)
--- NOTE | 2016-04-22 12:52 | CP.PCM.PN ---
<Saba Ennis - Last Filed: 04/22/16 12:49> Subjective - Date & Time of Evaluation Date of Evaluation: 04/22/16 Time of Evaluation: 10:20 - Subjective Subjective: Patient seen and examined this morning. Patient is aphasic secondary to anoxic brain injury. Trach/PEG/Baker in place. No acute overnight events per nursing. Patient currently on antibiotics for UTI. Objective - Vital Signs/Intake and Output Vital Signs (last 24 hours): Temp Pulse Resp BP Pulse Ox 98.3 F 89 18 104/71 97 04/22/16 08:00 04/22/16 08:00 04/22/16 08:00 04/22/16 08:00 04/22/16 08:00 Intake and Output: 04/22/16 04/22/16 06:59 18:59 Intake Total 1450 Output Total 1950 Balance -500 - Medications Medications: Current Medications Aspirin (Aspirin) 325 mg PEG DAILY [facility] Last Admin: 04/22/16 10:38 Dose: 325 mg Ciprofloxacin (Cipro) 500 mg PEG BID [facility] Stop: 04/24/16 12:31 Clopidogrel Bisulfate (Plavix) 75 mg PEG DAILY [facility] Last Admin: 04/22/16 10:38 Dose: 75 mg Enoxaparin Sodium (Lovenox) 40 mg SC DAILY [facility] Last Admin: 04/22/16 10:40 Dose: 40 mg Famotidine (Pepcid) 20 mg PEG BID [facility] Last Admin: 04/22/16 10:38 Dose: 20 mg Lactobacillus Acidophilus (Bacid Acidophilus) 1 cap PEG BID [facility] Last Admin: 04/22/16 10:41 Dose: 1 cap Lisinopril (Zestril) 5 mg PEG DAILY [facility] Last Admin: 04/22/16 10:39 Dose: 5 mg Mupirocin (Bactroban Ointment) 1 gm TOP DAILY [facility] Last Admin: 04/22/16 10:44 Dose: 1 applic Oxybutynin Chloride (Ditropan Tab) 5 mg PEG TID [facility] Last Admin: 04/22/16 10:40 Dose: 5 mg Phenytoin (Dilantin) 100 mg PEG TID [facility] Last Admin: 04/22/16 10:40 Dose: 100 mg - Labs Labs: 04/21/16 08:09 04/22/16 07:30 PT 10.6 SECONDS (9.7-12.2) 11/24/15 14:10 INR 1.0 11/24/15 14:10 APTT 25 SECONDS (21-34) 11/24/15 14:10 - Constitutional Appears: Chronically Ill - Head Exam Head Exam: NORMAL INSPECTION - Eye Exam Eye Exam: absent: Scleral icterus Additional comments: pupils equal and round but not reactive to light - ENT Exam ENT Exam: Mucous Membranes Moist - Neck Exam Additional comments: trach collar in place, covered with gauze pads c/d/i - Respiratory Exam Respiratory Exam: Clear to Ausculation Bilateral, NORMAL BREATHING PATTERN. absent: Respiratory Distress - Cardiovascular Exam Cardiovascular Exam: RRR, +S1, +S2 - GI/Abdominal Exam Additional comments: PEG tube site covered and clean - Exam Additional comments: Baker catheter with 600 cc clear yellow urine output - Extremities Exam Extremities Exam: Pedal Edema Additional comments: heel air boots bilateral LE Assessment and Plan - Assessment and Plan (Free Text) Assessment: (1) Anoxic encephalopathy No acute changes in mental status PEG tube operational, continue tube feedings @ 50cc/hr nightly with 300cc flushes Labs on Mondays and . PEG tube placed at bedside by Dr. Chan on 11/27/15 Pending placement (2) Respiratory Failure 04/22: WBC count increased 8.2 -> 10.4 -> 12.6. Patient currently being treated for UTI. CXR from 04/18/16 shows no active disease. No leukocytosis, afebrile. Continue suction q4h. Sputum cultures ordered - POSITIVE for Pseudomonas [Note: patients with tracheostomy tubes usually grow Pseudomonas (colonized)- no aggressive treatment necessary if febrile or no leukocytosis] Rocephin 1gm IV started 04/14/16- discontinued 04/17/16 Azithromycin 500mg iv daily started 04/16/16 - discontinued 04/17/16 Monitor site for infection/inflammation. WBC elevated on 04/14/16, patient afebrile-repeat WBC 8.9 and afebrile 02/12 CXR: Linear atelectasis at the bases. Cardiomegaly. ID on case - Dr. Armstrong Sputum culture 12/06 + pseudomonas: probably colonization. No antibiotics per Dr. Armstrong tracheostomy with tube change by Dr. Chan on 11/27/15 (3) UTI 04/22: WBC count increased 8.2 -> 10.4 -> 12.6. Cipro IV discontinued and Cipro 500mg BID via PEG. Continue until April 24, then dc after morning dose. Will trend WBC count. If remains elevated or increases, consider repeating cultures. 04/18: afebrile, no leukocytosis. As per ID, continue treatment with Cipro 400mg IV q12h for total of 7 days. Discontinue on April 24 after AM dose. 04/17: afebrile, leukocytosis resolved. Urine cultures POSITIVE Pseudomonas and E. faecalis. Stop Azithromycin and Rocephin. Start Cipro 400mg IV q12h. Spoke with ID, Dr. Armstrong- agrees with cipro IV. Will also start Bacid to prevent secondary GI infection. 04/16: afebrile, leukocytosis resolved, cultures positive gram negative rods 04/15: afebrile. continue Rocephin. Cultures pending. CBC ordered for tomorrow to trend WBC count. 04/14: afebrile, WBC elevated 17: order to change baker catheter and obtain blood and urine cultures: Rocephin 1gm iv daily to follow cultures 04/13/16: monitor VS closely. Pt. afebrile however temp mildly elevated overnight. Chronic Ditropan 5mg PEG TID for leakage around catheter. Continue to monitor vital signs and wbc count (4) CAD (coronary artery disease) Cardiac stents on 06/13/15. Continue Lisinopril 5mg PEG daily Continue Plavix 75mg PEG daily Continue ASA 325mg PEG daily (5) Seizures Continue dilantin 100mg PEG TID Seizure precautions. (6) Bed sore Healed. continue wound care as needed, [facility], and [facility] Sacral ulcer Stage II 0.5cm x 1.5cm- Healed. Continue repositioning of patient q2H. dolphin mattress. Heel air boots. (7) Prophylactic measure Lovenox 40 SC daily Pepcid 20 mg PEG BID <Rashel Rodrigues - Last Filed: 04/22/16 18:03> Objective - Vital Signs/Intake and Output Vital Signs (last 24 hours): Temp Pulse Resp BP Pulse Ox 98.6 F 80 20 109/73 97 04/22/16 16:08 04/22/16 16:08 04/22/16 16:08 04/22/16 16:08 04/22/16 16:08 Intake and Output: 04/22/16 04/22/16 06:59 18:59 Intake Total 1450 300 Output Total 1950 600 Balance -500 -300 - Medications Medications: Current Medications Aspirin (Aspirin) 325 mg PEG DAILY [facility] Last Admin: 04/22/16 10:38 Dose: 325 mg Ciprofloxacin (Cipro) 500 mg PEG BID [facility] Stop: 04/24/16 12:31 Last Admin: 04/22/16 17:30 Dose: 500 mg Clopidogrel Bisulfate (Plavix) 75 mg PEG DAILY [facility] Last Admin: 04/22/16 10:38 Dose: 75 mg Enoxaparin Sodium (Lovenox) 40 mg SC DAILY [facility] Last Admin: 04/22/16 10:40 Dose: 40 mg Famotidine (Pepcid) 20 mg PEG BID [facility] Last Admin: 04/22/16 17:29 Dose: 20 mg Lactobacillus Acidophilus (Bacid Acidophilus) 1 cap PEG BID [facility] Last Admin: 04/22/16 17:30 Dose: 1 cap Lisinopril (Zestril) 5 mg PEG DAILY [facility] Last Admin: 04/22/16 10:39 Dose: 5 mg Mupirocin (Bactroban Ointment) 1 gm TOP DAILY [facility] Last Admin: 04/22/16 10:44 Dose: 1 applic Oxybutynin Chloride (Ditropan Tab) 5 mg PEG TID [facility] Last Admin: 04/22/16 17:29 Dose: 5 mg Phenytoin (Dilantin) 100 mg PEG TID [facility] Last Admin: 04/22/16 17:30 Dose: 100 mg - Labs Labs: 04/21/16 08:09 04/22/16 07:30 PT 10.6 SECONDS (9.7-12.2) 11/24/15 14:10 INR 1.0 11/24/15 14:10 APTT 25 SECONDS (21-34) 11/24/15 14:10 Attending/Attestation - Attestation I have personally seen and examined this patient.: Yes I have fully participated in the care of the patient.: Yes I have reviewed all pertinent clinical information, including history, physical exam and plan: Yes
[2016-04-23 07:14] LABS: BASO % 0.1 % (0.0-2.0); EOS # 0.5 K/uL (0.0-0.7); EOS % 4.9 % (0.0-4.0); HEMOGLOBIN 12.1 g/dL (12.0-18.0); LYMPH # 1.8 K/uL (1.0-4.3); LYMPH % 19.5 % (20.0-40.0); MEAN CELL VOLUME 92.7 fL (80.0-94.0); MEAN CORPUSCULAR HEMOGLOBIN 30.4 pg (27.0-31.0); MEAN CORPUSCULAR HGB CONC 32.8 g/dL (33.0-37.0); MEAN PLATELET VOLUME 8.2 fL (7.2-11.7); MONO # 0.8 K/uL (0.0-0.8); MONO % 8.3 % (0.0-10.0); NEUT # 6.1 K/uL (1.8-7.0); NEUT % 67.2 % (50.0-75.0); RBC 3.98 Mil/uL (4.40-5.90); RED CELL DISTRIBUTION WIDTH 14.6 % (11.5-14.5); WHITE BLOOD COUNT 9.1 K/uL (4.8-10.8)
[2016-04-23 07:24] LABS: ALB/GLOB RATIO 0.8 (1.0-2.1); ALT/SGPT 57 U/L (21-72); AST/SGOT 32 U/L (17-59); BLOOD UREA NITROGEN 18 mg/dL (9-20); GFR NON-AFRICAN AMERICAN > 60
[2016-04-23 07:25] LABS: CALCIUM 8.1 mg/dl (8.6-10.4)
[2016-04-23] MEDS: Enoxaparin 40 mg Syringe SC SCH (10:52)
[2016-04-23] MEDS: Phenytoin 100 mg/4 ml Oral Susp UD PEG SCH ×3 (10:53→18:00)
[2016-04-23] MEDS: Lactobacillus Acidophilus 500 MU Cap PEG SCH ×2 (10:54→17:59)
--- NOTE | 2016-04-23 10:54 | CP.PCM.PN ---
"<Howard Lopez - Last Filed: 04/23/16 12:53> Subjective - Date & Time of Evaluation Date of Evaluation: 04/23/16 Time of Evaluation: 10:54 - Subjective Subjective: PGY1 Medicine Progress Note | Dr. Rodrigues's Service Patient seen and examined at bedside during attending rounds. At the time of exam, the patient was in bed in NAD. Patient was unresponsive to verbal/tactile/ painful stimuli, ROS unobtainable. No change in clinical status. Objective - Vital Signs/Intake and Output Vital Signs (last 24 hours): Temp Pulse Resp BP Pulse Ox 98.1 F 102 H 20 108/76 100 04/23/16 07:58 04/23/16 08:12 04/23/16 07:58 04/23/16 07:58 04/23/16 07:58 Intake and Output: 04/23/16 04/23/16 06:59 18:59 Intake Total 1180 Output Total 1100 Balance 80 - Medications Medications: Current Medications Aspirin (Aspirin) 325 mg PEG DAILY [facility] Last Admin: 04/22/16 10:38 Dose: 325 mg Ciprofloxacin (Cipro) 500 mg PEG BID [facility] Stop: 04/24/16 12:31 Last Admin: 04/22/16 17:30 Dose: 500 mg Clopidogrel Bisulfate (Plavix) 75 mg PEG DAILY [facility] Last Admin: 04/22/16 10:38 Dose: 75 mg Enoxaparin Sodium (Lovenox) 40 mg SC DAILY [facility] Last Admin: 04/22/16 10:40 Dose: 40 mg Famotidine (Pepcid) 20 mg PEG BID [facility] Last Admin: 04/22/16 17:29 Dose: 20 mg Lactobacillus Acidophilus (Bacid Acidophilus) 1 cap PEG BID [facility] Last Admin: 04/22/16 17:30 Dose: 1 cap Lisinopril (Zestril) 5 mg PEG DAILY [facility] Last Admin: 04/22/16 10:39 Dose: 5 mg Mupirocin (Bactroban Ointment) 1 gm TOP DAILY [facility] Last Admin: 04/22/16 10:44 Dose: 1 applic Oxybutynin Chloride (Ditropan Tab) 5 mg PEG TID [facility] Last Admin: 04/22/16 17:29 Dose: 5 mg Phenytoin (Dilantin) 100 mg PEG TID [facility] Last Admin: 04/22/16 17:30 Dose: 100 mg - Labs Labs: 04/23/16 07:01 04/23/16 07:01 PT 10.6 SECONDS (9.7-12.2) 11/24/15 14:10 INR 1.0 11/24/15 14:10 APTT 25 SECONDS (21-34) 11/24/15 14:10 - Additional Findings Additional findings: - Constitutional Appears: No Acute Distress, Chronically Ill - Head Exam Head Exam: ATRAUMATIC, NORMOCEPHALIC - ENT Exam ENT Exam: Mucous Membranes Dry Additional comments: trach collar in place, no secretions/blood observed in tubing. - Respiratory Exam Respiratory Exam: Decreased Breath Sounds, NORMAL BREATHING PATTERN. absent: Rales, Rhonchi, Wheezes - Cardiovascular Exam Cardiovascular Exam: REGULAR RHYTHM, +S1, +S2. absent: Gallop, Rubs, Murmur - GI/Abdominal Exam GI & Abdominal Exam: Soft, Normal Bowel Sounds. absent: Distended, Guarding, Rebound Additional comments: PEG tube in place, no erythema, discharge appreciated. Tube feed running not running at the time of exam. - Neurological Exam Neurological Exam: Altered - Skin Skin Exam: Dry, Warm Assessment and Plan - Assessment and Plan (Free Text) Assessment: (1) Anoxic encephalopathy No acute changes in mental status PEG tube operational, continue tube feedings @ 50cc/hr nightly with 300cc flushes Labs on Mondays and . PEG tube placed at bedside by Dr. Chan on 11/27/15 Pending placement (2) Respiratory Failure 04/23/16: WBC improved from 12.6 to 9.1 04/22: WBC count increased 8.2 -> 10.4 -> 12.6. Patient currently being treated for UTI. CXR from 04/18/16 shows no active disease. No leukocytosis, afebrile. Continue suction q4h. Sputum cultures ordered - POSITIVE for Pseudomonas [Note: patients with tracheostomy tubes usually grow Pseudomonas (colonized)- no aggressive treatment necessary if febrile or no leukocytosis] Rocephin 1gm IV started 04/14/16- discontinued 04/17/16 Azithromycin 500mg iv daily started 04/16/16 - discontinued 04/17/16 Monitor site for infection/inflammation. WBC elevated on 04/14/16, patient afebrile-repeat WBC 8.9 and afebrile 02/12 CXR: Linear atelectasis at the bases. Cardiomegaly. ID on case - Dr. Armstrong Sputum culture 12/06 + pseudomonas: probably colonization. No antibiotics per Dr. Armstrong tracheostomy with tube change by Dr. Chan on 11/27/15 (3) UTI 04/23/16: WBC improved from 12.6 to 9.1 04/22: WBC count increased 8.2 -> 10.4 -> 12.6. Cipro IV discontinued and Cipro 500mg BID via PEG. Continue until April 24, then dc after morning dose. Will trend WBC count. If remains elevated or increases, consider repeating cultures. 04/18: afebrile, no leukocytosis. As per ID, continue treatment with Cipro 400mg IV q12h for total of 7 days. Discontinue on April 24 after AM dose. 04/17: afebrile, leukocytosis resolved. Urine cultures POSITIVE Pseudomonas and E. faecalis. Stop Azithromycin and Rocephin. Start Cipro 400mg IV q12h. Spoke with ID, Dr. Armstrong- agrees with cipro IV. Will also start Bacid to prevent secondary GI infection. 04/16: afebrile, leukocytosis resolved, cultures positive gram negative rods 04/15: afebrile. continue Rocephin. Cultures pending. CBC ordered for tomorrow to trend WBC count. 04/14: afebrile, WBC elevated 17: order to change baker catheter and obtain blood and urine cultures: Rocephin 1gm iv daily to follow cultures 04/13/16: monitor VS closely. Pt. afebrile however temp mildly elevated overnight. Chronic Ditropan 5mg PEG TID for leakage around catheter. Continue to monitor vital signs and wbc count (4) CAD (coronary artery disease) Cardiac stents on 06/13/15. Continue Lisinopril 5mg PEG daily Continue Plavix 75mg PEG daily Continue ASA 325mg PEG daily (5) Seizures Continue dilantin 100mg PEG TID Seizure precautions. (6) Bed sore Healed. continue wound care as needed, [facility], and [facility] Sacral ulcer Stage II 0.5cm x 1.5cm- Healed. Continue repositioning of patient q2H. dolphin mattress. Heel air boots. (7) Prophylactic measure Lovenox 40 SC daily Pepcid 20 mg PEG BID <Rashel Rodrigues - Last Filed: 04/23/16 15:48> Objective - Vital Signs/Intake and Output Vital Signs (last 24 hours): Temp Pulse Resp BP Pulse Ox 98.1 F 102 H 20 108/76 100 04/23/16 07:58 04/23/16 08:12 04/23/16 07:58 04/23/16 07:58 04/23/16 07:58 Intake and Output: 04/23/16 04/23/16 06:59 18:59 Intake Total 1180 Output Total 1100 500 Balance 80 -500 - Medications Medications: Current Medications Aspirin (Aspirin) 325 mg PEG DAILY [facility] Last Admin: 04/23/16 10:51 Dose: 325 mg Ciprofloxacin (Cipro) 500 mg PEG BID [facility] Stop: 04/24/16 12:31 Last Admin: 04/23/16 10:51 Dose: 500 mg Clopidogrel Bisulfate (Plavix) 75 mg PEG DAILY [facility] Last Admin: 04/23/16 10:51 Dose: 75 mg Enoxaparin Sodium (Lovenox) 40 mg SC DAILY [facility] Last Admin: 04/23/16 10:52 Dose: 40 mg Famotidine (Pepcid) 20 mg PEG BID [facility] Last Admin: 04/23/16 10:51 Dose: 20 mg Lactobacillus Acidophilus (Bacid Acidophilus) 1 cap PEG BID [facility] Last Admin: 04/23/16 10:54 Dose: 1 cap Lisinopril (Zestril) 5 mg PEG DAILY [facility] Last Admin: 04/23/16 10:51 Dose: 5 mg Mupirocin (Bactroban Ointment) 1 gm TOP DAILY [facility] Last Admin: 04/23/16 10:55 Dose: 1 applic Oxybutynin Chloride (Ditropan Tab) 5 mg PEG TID [facility] Last Admin: 04/23/16 14:49 Dose: 5 mg Phenytoin (Dilantin) 100 mg PEG TID [facility] Last Admin: 04/23/16 14:49 Dose: 100 mg - Labs Labs: 04/23/16 07:01 04/23/16 07:01 PT 10.6 SECONDS (9.7-12.2) 11/24/15 14:10 INR 1.0 11/24/15 14:10 APTT 25 SECONDS (21-34) 11/24/15 14:10 Attending/Attestation - Attestation I have personally seen and examined this patient.: Yes I have fully participated in the care of the patient.: Yes I have reviewed all pertinent clinical information, including history, physical exam and plan: Yes"
--- NOTE | 2016-04-24 07:36 | CP.PCM.PN ---
Subjective - Date & Time of Evaluation Date of Evaluation: 04/24/16 Time of Evaluation: 08:20 - Subjective Subjective: pt was seen and examine during the round no new events , pt is remains on Trach collar, tolerating peg feeding, no fever , no distress. Objective - Vital Signs/Intake and Output Vital Signs (last 24 hours): Temp Pulse Resp BP Pulse Ox 98.3 F 80 20 107/69 99 04/23/16 23:36 04/24/16 01:41 04/23/16 23:36 04/23/16 23:36 04/23/16 23:36 Intake and Output: 04/24/16 04/24/16 06:59 18:59 Intake Total 1130 Output Total 1350 Balance -220 - Medications Medications: Current Medications Aspirin (Aspirin) 325 mg PEG DAILY [facility] Last Admin: 04/23/16 10:51 Dose: 325 mg Ciprofloxacin (Cipro) 500 mg PEG BID [facility] Stop: 04/24/16 12:31 Last Admin: 04/23/16 17:59 Dose: 500 mg Clopidogrel Bisulfate (Plavix) 75 mg PEG DAILY [facility] Last Admin: 04/23/16 10:51 Dose: 75 mg Enoxaparin Sodium (Lovenox) 40 mg SC DAILY [facility] Last Admin: 04/23/16 10:52 Dose: 40 mg Famotidine (Pepcid) 20 mg PEG BID [facility] Last Admin: 04/23/16 17:59 Dose: 20 mg Lactobacillus Acidophilus (Bacid Acidophilus) 1 cap PEG BID [facility] Last Admin: 04/23/16 17:59 Dose: 1 cap Lisinopril (Zestril) 5 mg PEG DAILY [facility] Last Admin: 04/23/16 10:51 Dose: 5 mg Mupirocin (Bactroban Ointment) 1 gm TOP DAILY [facility] Last Admin: 04/23/16 10:55 Dose: 1 applic Oxybutynin Chloride (Ditropan Tab) 5 mg PEG TID [facility] Last Admin: 04/23/16 18:00 Dose: 5 mg Phenytoin (Dilantin) 100 mg PEG TID [facility] Last Admin: 04/23/16 18:00 Dose: 100 mg - Labs Labs: 04/23/16 07:01 04/23/16 07:01 PT 10.6 SECONDS (9.7-12.2) 11/24/15 14:10 INR 1.0 11/24/15 14:10 APTT 25 SECONDS (21-34) 11/24/15 14:10 - Constitutional Appears: No Acute Distress - Eye Exam Eye Exam: EOMI, PERRL Pupil Exam: PERRL - ENT Exam ENT Exam: Mucous Membranes Moist Additional comments: Trach Collar--> functioning well. - Neck Exam Neck Exam: absent: Lymphadenopathy, Thyromegaly - Respiratory Exam Respiratory Exam: Clear to Ausculation Bilateral. absent: Accessory Muscle Use , Rales, Wheezes - Cardiovascular Exam Cardiovascular Exam: REGULAR RHYTHM, RRR, +S1, +S2. absent: JVD - GI/Abdominal Exam GI & Abdominal Exam: Soft, Normal Bowel Sounds. absent: Distended, Tenderness - Extremities Exam Extremities Exam: absent: Joint Swelling, Pedal Edema - Neurological Exam Neurological Exam: Awake Additional comments: contracted, both LE and UE Uncooperative Nonverbal - Skin Skin Exam: Dry, Intact, Normal Color, Warm Assessment and Plan - Assessment and Plan (Free Text) Assessment: (1) Anoxic encephalopathy No acute changes in mental status PEG tube operational, continue tube feedings @ 50cc/hr nightly with 300cc flushes Labs on Mondays and . PEG tube placed at bedside by Dr. Chan on 11/27/15 Pending placement (2) Respiratory Failure 04/24--> cont Trach colloar, resp status stable, 04/23/16: WBC improved from 12.6 to 9.1 04/22: WBC count increased 8.2 -> 10.4 -> 12.6. Patient currently being treated for UTI. CXR from 04/18/16 shows no active disease. No leukocytosis, afebrile. Continue suction q4h. Sputum cultures ordered - POSITIVE for Pseudomonas [Note: patients with tracheostomy tubes usually grow Pseudomonas (colonized)- no aggressive treatment necessary if febrile or no leukocytosis] Rocephin 1gm IV started 04/14/16- discontinued 04/17/16 Azithromycin 500mg iv daily started 04/16/16 - discontinued 04/17/16 Monitor site for infection/inflammation. WBC elevated on 04/14/16, patient afebrile-repeat WBC 8.9 and afebrile 02/12 CXR: Linear atelectasis at the bases. Cardiomegaly. ID on case - Dr. Armstrong Sputum culture 1/14 + pseudomonas: probably colonization. No antibiotics per Dr. Armstrong tracheostomy with tube change by Dr. Chan on 11/27/15 (3) UTI 6/2--> completing Cipro today, monitor, 04/23/16: WBC improved from 12.6 to 9.1 04/22: WBC count increased 8.2 -> 10.4 -> 12.6. Cipro IV discontinued and Cipro 500mg BID via PEG. Continue until April 24, then dc after morning dose. Will trend WBC count. If remains elevated or increases, consider repeating cultures. 04/18: afebrile, no leukocytosis. As per ID, continue treatment with Cipro 400mg IV q12h for total of 7 days. Discontinue on April 24 after AM dose. 04/17: afebrile, leukocytosis resolved. Urine cultures POSITIVE Pseudomonas and E. faecalis. Stop Azithromycin and Rocephin. Start Cipro 400mg IV q12h. Spoke with ID, Dr. Armstrong- agrees with cipro IV. Will also start Bacid to prevent secondary GI infection. 04/16: afebrile, leukocytosis resolved, cultures positive gram negative rods 04/15: afebrile. continue Rocephin. Cultures pending. CBC ordered for tomorrow to trend WBC count. 04/14: afebrile, WBC elevated 17: order to change baker catheter and obtain blood and urine cultures: Rocephin 1gm iv daily to follow cultures 04/13/16: monitor VS closely. Pt. afebrile however temp mildly elevated overnight. Chronic Ditropan 5mg PEG TID for leakage around catheter. Continue to monitor vital signs and wbc count (4) CAD (coronary artery disease) Cardiac stents on 06/13/15. Continue Lisinopril 5mg PEG daily Continue Plavix 75mg PEG daily Continue ASA 325mg PEG daily (5) Seizures Continue dilantin 100mg PEG TID Seizure precautions. (6) Bed sore Healed. continue wound care as needed, [facility], and [facility] Sacral ulcer Stage II 0.5cm x 1.5cm- Healed. Continue repositioning of patient q2H. dolphin mattress. Heel air boots. (7) Prophylactic measure Lovenox 40 SC daily Pepcid 20 mg PEG BID No family at the bedside.
[2016-04-24 08:23] LABS: BASO # 0.1 K/uL (0.0-0.2); BASO % 0.7 % (0.0-2.0); EOS # 0.4 K/uL (0.0-0.7); EOS % 4.8 % (0.0-4.0); HEMOGLOBIN 12.1 g/dL (12.0-18.0); LYMPH # 1.8 K/uL (1.0-4.3); LYMPH % 19.9 % (20.0-40.0); MEAN CELL VOLUME 92.4 fL (80.0-94.0); MEAN CORPUSCULAR HEMOGLOBIN 31.1 pg (27.0-31.0); MEAN CORPUSCULAR HGB CONC 33.6 g/dL (33.0-37.0); MEAN PLATELET VOLUME 8.2 fL (7.2-11.7); MONO # 0.8 K/uL (0.0-0.8); MONO % 8.6 % (0.0-10.0); NEUT # 5.9 K/uL (1.8-7.0); NRBC % 0.1 % (0.0-2.0); RBC 3.89 Mil/uL (4.40-5.90); RED CELL DISTRIBUTION WIDTH 14.8 % (11.5-14.5)
[2016-04-24 08:53] LABS: ALBUMIN 3.1 g/dL (3.5-5.0)
[2016-04-24 08:56] LABS: ALB/GLOB RATIO 0.8 (1.0-2.1); AST/SGOT 23 U/L (17-59); GFR NON-AFRICAN AMERICAN > 60
[2016-04-24 08:57] LABS: ALT/SGPT 55 U/L (21-72); BLOOD UREA NITROGEN 20 mg/dL (9-20); CALCIUM 8.7 mg/dl (8.6-10.4)
[2016-04-24] MEDS: Enoxaparin 40 mg Syringe SC SCH (09:39)
[2016-04-24] MEDS: Lactobacillus Acidophilus 500 MU Cap PEG SCH ×2 (09:39→19:20)
[2016-04-24] MEDS: Phenytoin 100 mg/4 ml Oral Susp UD PEG SCH ×3 (09:39→19:21)
[2016-04-25 08:36] LABS: ALBUMIN 3.1 g/dL (3.5-5.0)
[2016-04-25 08:39] LABS: ALB/GLOB RATIO 0.9 (1.0-2.1); AST/SGOT 28 U/L (17-59); BLOOD UREA NITROGEN 18 mg/dL (9-20); GFR NON-AFRICAN AMERICAN > 60
[2016-04-25 08:40] LABS: ALT/SGPT 54 U/L (21-72); CALCIUM 8.8 mg/dl (8.6-10.4)
[2016-04-25] MEDS: Phenytoin 100 mg/4 ml Oral Susp UD PEG SCH ×3 (09:33→17:46)
[2016-04-25] MEDS: Lactobacillus Acidophilus 500 MU Cap PEG SCH ×2 (09:34→17:45)
--- NOTE | 2016-04-25 11:02 | CP.PCM.PN ---
Subjective - Date & Time of Evaluation Date of Evaluation: 04/25/16 Time of Evaluation: 11:02 - Subjective Subjective: pt was seen and examined during the round no new events. non verbal tolerating Peg TF stable , no resp distress on TC Objective - Vital Signs/Intake and Output Vital Signs (last 24 hours): Temp Pulse Resp BP Pulse Ox 97.4 F L 85 20 122/83 100 04/25/16 08:15 04/25/16 08:15 04/25/16 08:15 04/25/16 08:15 04/25/16 08:15 Intake and Output: 04/25/16 04/25/16 06:59 18:59 Intake Total 1650 Output Total 1000 Balance 650 - Medications Medications: Current Medications Aspirin (Aspirin) 325 mg PEG DAILY [facility] Last Admin: 04/25/16 09:34 Dose: 325 mg Clopidogrel Bisulfate (Plavix) 75 mg PEG DAILY [facility] Last Admin: 04/25/16 09:33 Dose: 75 mg Famotidine (Pepcid) 20 mg PEG BID [facility] Last Admin: 04/25/16 09:34 Dose: 20 mg Lactobacillus Acidophilus (Bacid Acidophilus) 1 cap PEG BID [facility] Last Admin: 04/25/16 09:34 Dose: 1 cap Lisinopril (Zestril) 5 mg PEG DAILY [facility] Last Admin: 04/25/16 09:34 Dose: 5 mg Mupirocin (Bactroban Ointment) 1 gm TOP DAILY [facility] Last Admin: 04/25/16 09:34 Dose: 1 applic Oxybutynin Chloride (Ditropan Tab) 5 mg PEG TID [facility] Last Admin: 04/25/16 09:34 Dose: 5 mg Phenytoin (Dilantin) 100 mg PEG TID [facility] Last Admin: 04/25/16 09:33 Dose: 100 mg - Labs Labs: 04/24/16 08:13 04/25/16 08:03 PT 10.6 SECONDS (9.7-12.2) 11/24/15 14:10 INR 1.0 11/24/15 14:10 APTT 25 SECONDS (21-34) 11/24/15 14:10 - Constitutional Appears: No Acute Distress - Eye Exam Eye Exam: Normal appearance, PERRL Pupil Exam: PERRL - ENT Exam ENT Exam: Mucous Membranes Moist - Neck Exam Neck Exam: absent: Lymphadenopathy, Thyromegaly - Respiratory Exam Respiratory Exam: Clear to Ausculation Bilateral. absent: Rales, Wheezes, Stridor - Cardiovascular Exam Cardiovascular Exam: REGULAR RHYTHM, RRR, +S1, +S2 - GI/Abdominal Exam GI & Abdominal Exam: Soft. absent: Distended, Tenderness - Neurological Exam Neurological Exam: Alert, Awake Neuro motor strength exam: Left Upper Extremity: 2/1, Right Upper Extremity: 2/1 , Left Lower Extremity: 2/1, Right Lower Extremity: 2/1 - Skin Skin Exam: Dry, Intact, Normal Color Assessment and Plan - Assessment and Plan (Free Text) Assessment: (1) Anoxic encephalopathy No acute changes in mental status PEG tube operational, continue tube feedings @ 50cc/hr nightly with 300cc flushes Labs on Mondays and . PEG tube placed at bedside by Dr. Chan on 11/27/15 Pending placement (2) Respiratory Failure 04/25--> cont Trach care 04/24--> cont Trach colloar, resp status stable, 04/23/16: WBC improved from 12.6 to 9.1 04/22: WBC count increased 8.2 -> 10.4 -> 12.6. Patient currently being treated for UTI. CXR from 04/18/16 shows no active disease. No leukocytosis, afebrile. Continue suction q4h. Sputum cultures ordered - POSITIVE for Pseudomonas [Note: patients with tracheostomy tubes usually grow Pseudomonas (colonized)- no aggressive treatment necessary if febrile or no leukocytosis] Rocephin 1gm IV started 04/14/16- discontinued 04/17/16 Azithromycin 500mg iv daily started 04/16/16 - discontinued 04/17/16 Monitor site for infection/inflammation. WBC elevated on 04/14/16, patient afebrile-repeat WBC 8.9 and afebrile 02/12 CXR: Linear atelectasis at the bases. Cardiomegaly. ID on case - Dr. Armstrong Sputum culture 12/06 + pseudomonas: probably colonization. No antibiotics per Dr. Armstrong tracheostomy with tube change by Dr. Chan on 11/27/15 (3) UTI 62--> completing Cipro today, monitor, 04/23/16: WBC improved from 12.6 to 9.1 04/22: WBC count increased 8.2 -> 10.4 -> 12.6. Cipro IV discontinued and Cipro 500mg BID via PEG. Continue until April 24, then dc after morning dose. Will trend WBC count. If remains elevated or increases, consider repeating cultures. 04/18: afebrile, no leukocytosis. As per ID, continue treatment with Cipro 400mg IV q12h for total of 7 days. Discontinue on April 24 after AM dose. 04/17: afebrile, leukocytosis resolved. Urine cultures POSITIVE Pseudomonas and E. faecalis. Stop Azithromycin and Rocephin. Start Cipro 400mg IV q12h. Spoke with ID, Dr. Armstrong- agrees with cipro IV. Will also start Bacid to prevent secondary GI infection. 04/16: afebrile, leukocytosis resolved, cultures positive gram negative rods 04/15: afebrile. continue Rocephin. Cultures pending. CBC ordered for tomorrow to trend WBC count. 04/14: afebrile, WBC elevated 17: order to change baker catheter and obtain blood and urine cultures: Rocephin 1gm iv daily to follow cultures 04/13/16: monitor VS closely. Pt. afebrile however temp mildly elevated overnight. Chronic Ditropan 5mg PEG TID for leakage around catheter. Continue to monitor vital signs and wbc count (4) CAD (coronary artery disease) Cardiac stents on 06/13/15. Continue Lisinopril 5mg PEG daily Continue Plavix 75mg PEG daily Continue ASA 325mg PEG daily (5) Seizures Continue dilantin 100mg PEG TID Seizure precautions. (6) Bed sore Healed. continue wound care as needed, [facility], and [facility] Sacral ulcer Stage II 0.5cm x 1.5cm- Healed. Continue repositioning of patient q2H. dolphin mattress. Heel air boots. (7) Prophylactic measure Lovenox 40 SC daily Pepcid 20 mg PEG BID No family at the bedside.
--- NOTE | 2016-04-26 02:49 | CP.PCM.PN ---
<Yesenia Mayer - Last Filed: 04/26/16 02:46> Subjective - Date & Time of Evaluation Date of Evaluation: 04/26/16 Time of Evaluation: 02:46 - Subjective Subjective: PGY1 medicine Note: Patient seen and examined, in bed in NAD. Patient is non verbal and ROS is unobtainable. Objective - Vital Signs/Intake and Output Vital Signs (last 24 hours): Temp Pulse Resp BP Pulse Ox 98.7 F 89 20 128/85 99 04/26/16 00:45 04/26/16 00:45 04/26/16 00:45 04/26/16 00:45 04/26/16 00:45 Intake and Output: 04/25/16 04/26/16 18:59 06:59 Intake Total 1050 450 Output Total 800 600 Balance 250 -150 - Medications Medications: Current Medications Aspirin (Aspirin) 325 mg PEG DAILY [facility] Last Admin: 04/25/16 09:34 Dose: 325 mg Clopidogrel Bisulfate (Plavix) 75 mg PEG DAILY [facility] Last Admin: 04/25/16 09:33 Dose: 75 mg Famotidine (Pepcid) 20 mg PEG BID [facility] Last Admin: 04/25/16 17:45 Dose: 20 mg Lactobacillus Acidophilus (Bacid Acidophilus) 1 cap PEG BID [facility] Last Admin: 04/25/16 17:45 Dose: 1 cap Lisinopril (Zestril) 5 mg PEG DAILY [facility] Last Admin: 04/25/16 09:34 Dose: 5 mg Mupirocin (Bactroban Ointment) 1 gm TOP DAILY [facility] Last Admin: 04/25/16 09:34 Dose: 1 applic Oxybutynin Chloride (Ditropan Tab) 5 mg PEG TID [facility] Last Admin: 04/25/16 17:47 Dose: 5 mg Phenytoin (Dilantin) 100 mg PEG TID [facility] Last Admin: 04/25/16 17:46 Dose: 100 mg - Labs Labs: 04/24/16 08:13 04/25/16 08:03 PT 10.6 SECONDS (9.7-12.2) 11/24/15 14:10 INR 1.0 11/24/15 14:10 APTT 25 SECONDS (21-34) 11/24/15 14:10 - Constitutional Appears: No Acute Distress - Head Exam Head Exam: NORMAL INSPECTION - ENT Exam ENT Exam: Mucous Membranes Dry Additional comments: Trach in place - Respiratory Exam Respiratory Exam: NORMAL BREATHING PATTERN - Cardiovascular Exam Cardiovascular Exam: REGULAR RHYTHM, +S1, +S2 - GI/Abdominal Exam GI & Abdominal Exam: Soft, Normal Bowel Sounds Additional comments: PEG in place - Extremities Exam Extremities Exam: absent: Pedal Edema Additional comments: LE contracted - Neurological Exam Neurological Exam: Altered, Awake. absent: Oriented x3 - Skin Skin Exam: Normal Color, Warm Assessment and Plan - Assessment and Plan (Free Text) Assessment: (1) Anoxic encephalopathy No acute changes in mental status PEG tube operational, continue tube feedings @ 50cc/hr nightly with 300cc flushes Labs on Mondays and . PEG tube placed at bedside by Dr. Chan on 11/27/15 Pending placement (2) Respiratory Failure 04/25--> cont Trach care 04/24--> cont Trach colloar, resp status stable, 04/23/16: WBC improved from 12.6 to 9.1 04/22: WBC count increased 8.2 -> 10.4 -> 12.6. Patient currently being treated for UTI. CXR from 04/18/16 shows no active disease. No leukocytosis, afebrile. Continue suction q4h. Sputum cultures ordered - POSITIVE for Pseudomonas [Note: patients with tracheostomy tubes usually grow Pseudomonas (colonized)- no aggressive treatment necessary if febrile or no leukocytosis] Rocephin 1gm IV started 04/14/16- discontinued 04/17/16 Azithromycin 500mg iv daily started 04/16/16 - discontinued 04/17/16 Monitor site for infection/inflammation. WBC elevated on 04/14/16, patient afebrile-repeat WBC 8.9 and afebrile 02/12 CXR: Linear atelectasis at the bases. Cardiomegaly. ID on case - Dr. Armstrong Sputum culture 12/06 + pseudomonas: probably colonization. No antibiotics per Dr. Armstrong tracheostomy with tube change by Dr. Chan on 11/27/15 (3) UTI 04/26: Afebrile, WBC WNL 04/24--> completing Cipro today, monitor, 04/23/16: WBC improved from 12.6 to 9.1 04/22: WBC count increased 8.2 -> 10.4 -> 12.6. Cipro IV discontinued and Cipro 500mg BID via PEG. Continue until April 24, then dc after morning dose. Will trend WBC count. If remains elevated or increases, consider repeating cultures. 04/18: afebrile, no leukocytosis. As per ID, continue treatment with Cipro 400mg IV q12h for total of 7 days. Discontinue on April 24 after AM dose. 04/17: afebrile, leukocytosis resolved. Urine cultures POSITIVE Pseudomonas and E. faecalis. Stop Azithromycin and Rocephin. Start Cipro 400mg IV q12h. Spoke with ID, Dr. Armstrong- agrees with cipro IV. Will also start Bacid to prevent secondary GI infection. 04/16: afebrile, leukocytosis resolved, cultures positive gram negative rods 04/15: afebrile. continue Rocephin. Cultures pending. CBC ordered for tomorrow to trend WBC count. 04/14: afebrile, WBC elevated 17: order to change baker catheter and obtain blood and urine cultures: Rocephin 1gm iv daily to follow cultures 04/13/16: monitor VS closely. Pt. afebrile however temp mildly elevated overnight. Chronic Ditropan 5mg PEG TID for leakage around catheter. Continue to monitor vital signs and wbc count (4) CAD (coronary artery disease) Cardiac stents on 06/13/15. Continue Lisinopril 5mg PEG daily Continue Plavix 75mg PEG daily Continue ASA 325mg PEG daily (5) Seizures Continue dilantin 100mg PEG TID Seizure precautions. (6) Bed sore Healed. continue wound care as needed, [facility], and [facility] Sacral ulcer Stage II 0.5cm x 1.5cm- Healed. Continue repositioning of patient q2H. dolphin mattress. Heel air boots. (7) Prophylactic measure Lovenox 40 SC daily Pepcid 20 mg PEG BID <Rashel Rodrigues - Last Filed: 04/26/16 14:24> Objective - Vital Signs/Intake and Output Vital Signs (last 24 hours): Temp Pulse Resp BP Pulse Ox 97.5 F L 79 18 119/81 99 04/26/16 08:53 04/26/16 08:53 04/26/16 08:53 04/26/16 08:53 04/26/16 08:53 Intake and Output: 04/26/16 04/26/16 06:59 18:59 Intake Total 1050 Output Total 1100 Balance -50 - Medications Medications: Current Medications Aspirin (Aspirin) 325 mg PEG DAILY [facility] Last Admin: 04/26/16 10:42 Dose: 325 mg Clopidogrel Bisulfate (Plavix) 75 mg PEG DAILY [facility] Last Admin: 04/26/16 10:42 Dose: 75 mg Famotidine (Pepcid) 20 mg PEG BID [facility] Last Admin: 04/26/16 10:42 Dose: 20 mg Lactobacillus Acidophilus (Bacid Acidophilus) 1 cap PEG BID [facility] Last Admin: 04/26/16 10:44 Dose: 1 cap Lisinopril (Zestril) 5 mg PEG DAILY [facility] Last Admin: 04/26/16 10:42 Dose: 5 mg Mupirocin (Bactroban Ointment) 1 gm TOP DAILY [facility] Last Admin: 04/26/16 10:43 Dose: 1 applic Oxybutynin Chloride (Ditropan Tab) 5 mg PEG TID [facility] Last Admin: 04/26/16 13:09 Dose: 5 mg Phenytoin (Dilantin) 100 mg PEG TID [facility] Last Admin: 04/26/16 13:09 Dose: 100 mg - Labs Labs: 04/24/16 08:13 04/26/16 07:19 PT 10.6 SECONDS (9.7-12.2) 11/24/15 14:10 INR 1.0 11/24/15 14:10 APTT 25 SECONDS (21-34) 11/24/15 14:10 Attending/Attestation - Attestation I have personally seen and examined this patient.: Yes I have fully participated in the care of the patient.: Yes I have reviewed all pertinent clinical information, including history, physical exam and plan: Yes
[2016-04-26 08:19] LABS: ALBUMIN 3.1 g/dL (3.5-5.0)
[2016-04-26 08:21] LABS: AST/SGOT 27 U/L (17-59); GFR NON-AFRICAN AMERICAN > 60
[2016-04-26 08:22] LABS: ALB/GLOB RATIO 0.9 (1.0-2.1); ALT/SGPT 55 U/L (21-72); BLOOD UREA NITROGEN 21 mg/dL (9-20); CALCIUM 8.5 mg/dl (8.6-10.4)
[2016-04-26] MEDS: Phenytoin 100 mg/4 ml Oral Susp UD PEG SCH ×3 (10:43→18:10)
[2016-04-26] MEDS: Lactobacillus Acidophilus 500 MU Cap PEG SCH ×2 (10:44→18:10)
--- NOTE | 2016-04-27 03:37 | CP.PCM.PN ---
<Yesenia Mayer - Last Filed: 04/27/16 03:33> Subjective - Date & Time of Evaluation Date of Evaluation: 04/27/16 Time of Evaluation: 03:33 - Subjective Subjective: PGY1 medicine Note: Patient seen and examined, in NAD, sleeping comfortably in bed. Patient is non verbal and ROS is unobtainable. Objective - Vital Signs/Intake and Output Vital Signs (last 24 hours): Temp Pulse Resp BP Pulse Ox 98.5 F 82 20 104/74 98 04/26/16 23:25 04/26/16 23:25 04/26/16 23:25 04/26/16 23:25 04/26/16 23:25 Intake and Output: 04/26/16 04/27/16 18:59 06:59 Intake Total 730 Output Total 1300 Balance -570 - Medications Medications: Current Medications Aspirin (Aspirin) 325 mg PEG DAILY [facility] Last Admin: 04/26/16 10:42 Dose: 325 mg Clopidogrel Bisulfate (Plavix) 75 mg PEG DAILY [facility] Last Admin: 04/26/16 10:42 Dose: 75 mg Famotidine (Pepcid) 20 mg PEG BID [facility] Last Admin: 04/26/16 18:10 Dose: 20 mg Lactobacillus Acidophilus (Bacid Acidophilus) 1 cap PEG BID [facility] Last Admin: 04/26/16 18:10 Dose: 1 cap Lisinopril (Zestril) 5 mg PEG DAILY [facility] Last Admin: 04/26/16 10:42 Dose: 5 mg Mupirocin (Bactroban Ointment) 1 gm TOP DAILY [facility] Last Admin: 04/26/16 10:43 Dose: 1 applic Oxybutynin Chloride (Ditropan Tab) 5 mg PEG TID [facility] Last Admin: 04/26/16 18:10 Dose: 5 mg Phenytoin (Dilantin) 100 mg PEG TID [facility] Last Admin: 04/26/16 18:10 Dose: 100 mg - Labs Labs: 04/24/16 08:13 04/26/16 07:19 PT 10.6 SECONDS (9.7-12.2) 11/24/15 14:10 INR 1.0 11/24/15 14:10 APTT 25 SECONDS (21-34) 11/24/15 14:10 - Constitutional Appears: No Acute Distress - Head Exam Head Exam: NORMAL INSPECTION - ENT Exam ENT Exam: Mucous Membranes Moist Additional comments: trach collar - Respiratory Exam Respiratory Exam: NORMAL BREATHING PATTERN - Cardiovascular Exam Cardiovascular Exam: REGULAR RHYTHM, +S1, +S2 - GI/Abdominal Exam GI & Abdominal Exam: Soft, Normal Bowel Sounds. absent: Tenderness Additional comments: PEG - Extremities Exam Extremities Exam: absent: Pedal Edema Additional comments: LE contracted - Neurological Exam Neurological Exam: absent: Awake - Skin Skin Exam: Normal Color, Warm Assessment and Plan - Assessment and Plan (Free Text) Assessment: (1) Anoxic encephalopathy No acute changes in mental status PEG tube operational, continue tube feedings @ 50cc/hr nightly with 300cc flushes Labs on Mondays and . PEG tube placed at bedside by Dr. Chan on 11/27/15 Pending placement (2) Respiratory Failure 04/25--> cont Trach care 04/24--> cont Trach colloar, resp status stable, 04/23/16: WBC improved from 12.6 to 9.1 04/22: WBC count increased 8.2 -> 10.4 -> 12.6. Patient currently being treated for UTI. CXR from 04/18/16 shows no active disease. No leukocytosis, afebrile. Continue suction q4h. Sputum cultures ordered - POSITIVE for Pseudomonas [Note: patients with tracheostomy tubes usually grow Pseudomonas (colonized)- no aggressive treatment necessary if febrile or no leukocytosis] Rocephin 1gm IV started 04/14/16- discontinued 04/17/16 Azithromycin 500mg iv daily started 04/16/16 - discontinued 04/17/16 Monitor site for infection/inflammation. WBC elevated on 04/14/16, patient afebrile-repeat WBC 8.9 and afebrile 02/12 CXR: Linear atelectasis at the bases. Cardiomegaly. ID on case - Dr. Armstrong Sputum culture 12/06 + pseudomonas: probably colonization. No antibiotics per Dr. Armstrong tracheostomy with tube change by Dr. Chan on 11/27/15 (3) UTI 04/26: Afebrile, WBC WNL 04/24--> completing Cipro today, monitor, 04/23/16: WBC improved from 12.6 to 9.1 04/22: WBC count increased 8.2 -> 10.4 -> 12.6. Cipro IV discontinued and Cipro 500mg BID via PEG. Continue until April 24, then dc after morning dose. Will trend WBC count. If remains elevated or increases, consider repeating cultures. 04/18: afebrile, no leukocytosis. As per ID, continue treatment with Cipro 400mg IV q12h for total of 7 days. Discontinue on April 24 after AM dose. 04/17: afebrile, leukocytosis resolved. Urine cultures POSITIVE Pseudomonas and E. faecalis. Stop Azithromycin and Rocephin. Start Cipro 400mg IV q12h. Spoke with ID, Dr. Armstrong- agrees with cipro IV. Will also start Bacid to prevent secondary GI infection. 04/16: afebrile, leukocytosis resolved, cultures positive gram negative rods 04/15: afebrile. continue Rocephin. Cultures pending. CBC ordered for tomorrow to trend WBC count. 04/14: afebrile, WBC elevated 17: order to change baker catheter and obtain blood and urine cultures: Rocephin 1gm iv daily to follow cultures 04/13/16: monitor VS closely. Pt. afebrile however temp mildly elevated overnight. Chronic Ditropan 5mg PEG TID for leakage around catheter. Continue to monitor vital signs and wbc count (4) CAD (coronary artery disease) Cardiac stents on 06/13/15. Continue Lisinopril 5mg PEG daily Continue Plavix 75mg PEG daily Continue ASA 325mg PEG daily (5) Seizures Continue dilantin 100mg PEG TID Seizure precautions. (6) Bed sore Healed. continue wound care as needed, sensicare, and medihoney Sacral ulcer Stage II 0.5cm x 1.5cm- Healed. Continue repositioning of patient q2H. dolphin mattress. Heel air boots. (7) Prophylactic measure Lovenox 40 SC daily Pepcid 20 mg PEG BID <Rashel Rodrigues - Last Filed: 04/27/16 15:00> Objective - Vital Signs/Intake and Output Vital Signs (last 24 hours): Temp Pulse Resp BP Pulse Ox 98.3 F 80 20 119/79 97 04/27/16 08:00 04/27/16 08:00 04/27/16 08:00 04/27/16 08:00 04/27/16 08:00 Intake and Output: 04/27/16 04/27/16 06:59 18:59 Intake Total 1380 Output Total 1800 800 Balance -420 -800 - Medications Medications: Current Medications Aspirin (Aspirin) 325 mg PEG DAILY [facility] Last Admin: 04/27/16 10:50 Dose: 325 mg Clopidogrel Bisulfate (Plavix) 75 mg PEG DAILY [facility] Last Admin: 04/27/16 10:50 Dose: 75 mg Famotidine (Pepcid) 20 mg PEG BID [facility] Last Admin: 04/27/16 10:50 Dose: 20 mg Lactobacillus Acidophilus (Bacid Acidophilus) 1 cap PEG BID [facility] Last Admin: 04/27/16 10:50 Dose: 1 cap Lisinopril (Zestril) 5 mg PEG DAILY [facility] Last Admin: 04/27/16 10:50 Dose: 5 mg Mupirocin (Bactroban Ointment) 1 gm TOP DAILY [facility] Last Admin: 04/27/16 14:49 Dose: 1 applic Oxybutynin Chloride (Ditropan Tab) 5 mg PEG TID [facility] Last Admin: 04/27/16 14:48 Dose: 5 mg Phenytoin (Dilantin) 100 mg PEG TID [facility] Last Admin: 04/27/16 14:48 Dose: 100 mg - Labs Labs: 04/24/16 08:13 04/27/16 08:13 PT 10.6 SECONDS (9.7-12.2) 11/24/15 14:10 INR 1.0 11/24/15 14:10 APTT 25 SECONDS (21-34) 11/24/15 14:10 Attending/Attestation - Attestation I have personally seen and examined this patient.: Yes I have fully participated in the care of the patient.: Yes I have reviewed all pertinent clinical information, including history, physical exam and plan: Yes
[2016-04-27 08:31] LABS: ALBUMIN 3.1 g/dL (3.5-5.0)
[2016-04-27 08:34] LABS: ALB/GLOB RATIO 0.8 (1.0-2.1); ALT/SGPT 57 U/L (21-72); AST/SGOT 41 U/L (17-59); BLOOD UREA NITROGEN 18 mg/dL (9-20); GFR NON-AFRICAN AMERICAN > 60
[2016-04-27 08:35] LABS: CALCIUM 8.5 mg/dl (8.6-10.4)
[2016-04-27] MEDS: Phenytoin 100 mg/4 ml Oral Susp UD PEG SCH ×3 (10:50→17:09)
[2016-04-27] MEDS: Lactobacillus Acidophilus 500 MU Cap PEG SCH ×2 (10:50→17:09)
--- NOTE | 2016-04-28 07:39 | CP.PCM.PN ---
"<Donnell Ying - Last Filed: 04/28/16 17:26> Objective - Vital Signs/Intake and Output Vital Signs (last 24 hours): Temp Pulse Resp BP Pulse Ox 97.6 F 82 20 100/69 22 L 04/28/16 16:16 04/28/16 16:16 04/28/16 16:16 04/28/16 16:16 04/28/16 16:16 Intake and Output: 04/28/16 04/28/16 06:59 18:59 Intake Total 1500 800 Output Total 1300 500 Balance 200 300 - Medications Medications: Current Medications Aspirin (Aspirin) 325 mg PEG DAILY [facility] Last Admin: 04/28/16 10:40 Dose: 325 mg Clopidogrel Bisulfate (Plavix) 75 mg PEG DAILY [facility] Last Admin: 04/28/16 10:41 Dose: 75 mg Famotidine (Pepcid) 20 mg PEG BID [facility] Last Admin: 04/28/16 10:41 Dose: 20 mg Lactobacillus Acidophilus (Bacid Acidophilus) 1 cap PEG BID [facility] Last Admin: 04/28/16 10:40 Dose: 1 cap Lisinopril (Zestril) 5 mg PEG DAILY [facility] Last Admin: 04/28/16 10:41 Dose: 5 mg Mupirocin (Bactroban Ointment) 1 gm TOP DAILY [facility] Last Admin: 04/27/16 14:49 Dose: 1 applic Oxybutynin Chloride (Ditropan Tab) 5 mg PEG TID [facility] Last Admin: 04/28/16 13:55 Dose: 5 mg Phenytoin (Dilantin) 100 mg PEG TID [facility] Last Admin: 04/28/16 13:55 Dose: 100 mg - Labs Labs: 04/28/16 08:09 04/28/16 08:09 PT 10.6 SECONDS (9.7-12.2) 11/24/15 14:10 INR 1.0 11/24/15 14:10 APTT 25 SECONDS (21-34) 11/24/15 14:10 Attending/Attestation - Attestation I have personally seen and examined this patient.: Yes I have fully participated in the care of the patient.: Yes I have reviewed all pertinent clinical information, including history, physical exam and plan: Yes Notes (Text): 04/28/16 17:27 Patient seen and examined at bedside with the resident. No change in clinical condition. Continue current management. Turn and position patient every 2 hours. <Howard Lopez - Last Filed: 04/28/16 20:45> Subjective - Date & Time of Evaluation Date of Evaluation: 04/28/16 Time of Evaluation: 10:00 - Subjective Subjective: PGY1 Medicine Progress Note | Dr. Demetrice Ying's Service Patient seen and examined at bedside during attending rounds. At the time of exam, the patient was in bed in [facility]. Patient was unresponsive to verbal/tactile/ painful stimuli, ROS unobtainable. No change in clinical status. Objective - Vital Signs/Intake and Output Vital Signs (last 24 hours): Temp Pulse Resp BP Pulse Ox 98.3 F 98 H 20 107/72 98 04/27/16 23:34 04/27/16 23:34 04/27/16 23:34 04/27/16 23:34 04/27/16 23:34 Intake and Output: 04/28/16 04/28/16 06:59 18:59 Intake Total 1500 Output Total 1300 Balance 200 - Medications Medications: Current Medications Aspirin (Aspirin) 325 mg PEG DAILY [facility] Last Admin: 04/27/16 10:50 Dose: 325 mg Clopidogrel Bisulfate (Plavix) 75 mg PEG DAILY [facility] Last Admin: 04/27/16 10:50 Dose: 75 mg Famotidine (Pepcid) 20 mg PEG BID [facility] Last Admin: 04/27/16 17:10 Dose: 20 mg Lactobacillus Acidophilus (Bacid Acidophilus) 1 cap PEG BID [facility] Last Admin: 04/27/16 17:09 Dose: 1 cap Lisinopril (Zestril) 5 mg PEG DAILY [facility] Last Admin: 04/27/16 10:50 Dose: 5 mg Mupirocin (Bactroban Ointment) 1 gm TOP DAILY [facility] Last Admin: 04/27/16 14:49 Dose: 1 applic Oxybutynin Chloride (Ditropan Tab) 5 mg PEG TID [facility] Last Admin: 04/27/16 17:10 Dose: 5 mg Phenytoin (Dilantin) 100 mg PEG TID [facility] Last Admin: 04/27/16 17:09 Dose: 100 mg - Labs Labs: 04/24/16 08:13 04/27/16 08:13 PT 10.6 SECONDS (9.7-12.2) 11/24/15 14:10 INR 1.0 11/24/15 14:10 APTT 25 SECONDS (21-34) 11/24/15 14:10 - Additional Findings Additional findings: - Constitutional Appears: No Acute Distress, Chronically Ill - Head Exam Head Exam: ATRAUMATIC, NORMOCEPHALIC - ENT Exam ENT Exam: Mucous Membranes Dry Additional comments: trach collar in place, no secretions/blood observed in tubing. - Respiratory Exam Respiratory Exam: Decreased Breath Sounds, NORMAL BREATHING PATTERN. absent: Rales, Rhonchi, Wheezes - Cardiovascular Exam Cardiovascular Exam: REGULAR RHYTHM, +S1, +S2. absent: Gallop, Rubs, Murmur - GI/Abdominal Exam GI & Abdominal Exam: Soft, Normal Bowel Sounds. absent: Distended, Guarding, Rebound Additional comments: PEG tube in place, no erythema, discharge appreciated. Tube feed running not running at the time of exam. - Neurological Exam Neurological Exam: Altered - Skin Skin Exam: Dry, Warm Assessment and Plan - Assessment and Plan (Free Text) Assessment: (1) Anoxic encephalopathy No acute changes in mental status PEG tube operational, continue tube feedings @ 50cc/hr nightly with 300cc flushes Labs on Mondays and . PEG tube placed at bedside by Dr. Chan on 11/27/15 Pending placement (2) Respiratory Failure 04/28--> cont Trach care 04/24--> cont Trach colloar, resp status stable, 04/23/16: WBC improved from 12.6 to 9.1 04/22: WBC count increased 8.2 -> 10.4 -> 12.6. Patient currently being treated for UTI. CXR from 04/18/16 shows no active disease. No leukocytosis, afebrile. Continue suction q4h. Sputum cultures ordered - POSITIVE for Pseudomonas [Note: patients with tracheostomy tubes usually grow Pseudomonas (colonized)- no aggressive treatment necessary if febrile or no leukocytosis] Rocephin 1gm IV started 04/14/16- discontinued 04/17/16 Azithromycin 500mg iv daily started 04/16/16 - discontinued 04/17/16 Monitor site for infection/inflammation. WBC elevated on 04/14/16, patient afebrile-repeat WBC 8.9 and afebrile 02/12 CXR: Linear atelectasis at the bases. Cardiomegaly. ID on case - Dr. Armstrong Sputum culture 12/06 + pseudomonas: probably colonization. No antibiotics per Dr. Armstrong tracheostomy with tube change by Dr. Chan on 11/27/15 (3) UTI 04/26: Afebrile, WBC WNL /--> completing Cipro today, monitor, 04/23/16: WBC improved from 12.6 to 9.1 04/22: WBC count increased 8.2 -> 10.4 -> 12.6. Cipro IV discontinued and Cipro 500mg BID via PEG. Continue until April 24, then dc after morning dose. Will trend WBC count. If remains elevated or increases, consider repeating cultures. 04/18: afebrile, no leukocytosis. As per ID, continue treatment with Cipro 400mg IV q12h for total of 7 days. Discontinue on April 24 after AM dose. 04/17: afebrile, leukocytosis resolved. Urine cultures POSITIVE Pseudomonas and E. faecalis. Stop Azithromycin and Rocephin. Start Cipro 400mg IV q12h. Spoke with ID, Dr. Armstrong- agrees with cipro IV. Will also start Bacid to prevent secondary GI infection. 04/16: afebrile, leukocytosis resolved, cultures positive gram negative rods 04/15: afebrile. continue Rocephin. Cultures pending. CBC ordered for tomorrow to trend WBC count. 04/14: afebrile, WBC elevated 17: order to change baker catheter and obtain blood and urine cultures: Rocephin 1gm iv daily to follow cultures 04/13/16: monitor VS closely. Pt. afebrile however temp mildly elevated overnight. Chronic Ditropan 5mg PEG TID for leakage around catheter. Continue to monitor vital signs and wbc count (4) CAD (coronary artery disease) Cardiac stents on 06/13/15. Continue Lisinopril 5mg PEG daily Continue Plavix 75mg PEG daily Continue ASA 325mg PEG daily (5) Seizures Continue dilantin 100mg PEG TID Seizure precautions. (6) Bed sore Healed. continue wound care as needed, sensicare, and mediney Sacral ulcer Stage II 0.5cm x 1.5cm- Healed. Continue repositioning of patient q2H. dolphin mattress. Heel air boots. (7) Prophylactic measure Lovenox 40 SC daily Pepcid 20 mg PEG BID"
[2016-04-28 08:20] LABS: BASO % 0.2 % (0.0-2.0); EOS # 0.4 K/uL (0.0-0.7); EOS % 4.2 % (0.0-4.0); HEMOGLOBIN 12.1 g/dL (12.0-18.0); LYMPH # 1.6 K/uL (1.0-4.3); LYMPH % 17.9 % (20.0-40.0); MEAN CELL VOLUME 93.2 fL (80.0-94.0); MEAN CORPUSCULAR HGB CONC 33.3 g/dL (33.0-37.0); MEAN PLATELET VOLUME 7.9 fL (7.2-11.7); MONO # 0.7 K/uL (0.0-0.8); MONO % 8.4 % (0.0-10.0); NEUT % 69.3 % (50.0-75.0); RBC 3.89 Mil/uL (4.40-5.90); RED CELL DISTRIBUTION WIDTH 15.3 % (11.5-14.5); WHITE BLOOD COUNT 8.7 K/uL (4.8-10.8)
[2016-04-28 08:27] LABS: ALBUMIN 3.1 g/dL (3.5-5.0)
[2016-04-28 08:30] LABS: ALB/GLOB RATIO 0.9 (1.0-2.1); AST/SGOT 31 U/L (17-59); GFR NON-AFRICAN AMERICAN > 60
[2016-04-28 08:31] LABS: ALT/SGPT 53 U/L (21-72); BLOOD UREA NITROGEN 20 mg/dL (9-20); CALCIUM 8.4 mg/dl (8.6-10.4)
[2016-04-28] MEDS: Phenytoin 100 mg/4 ml Oral Susp UD PEG SCH ×3 (10:40→18:50)
[2016-04-28] MEDS: Lactobacillus Acidophilus 500 MU Cap PEG SCH ×2 (10:40→18:50)
--- NOTE | 2016-04-29 07:13 | CP.PCM.PN ---
"<Howard Lopez - Last Filed: 04/29/16 16:41> Subjective - Date & Time of Evaluation Date of Evaluation: 04/29/16 Time of Evaluation: 08:00 - Subjective Subjective: PGY1 Medicine Progress Note | Dr. Demetrice Ying's Service Patient seen and examined at bedside getting wound care from staff. At the time of exam, the patient was in bed in NAD. Clinical status unchanged. Patient was unresponsive to verbal/tactile/painful stimuli, ROS unobtainable. Objective - Vital Signs/Intake and Output Vital Signs (last 24 hours): Temp Pulse Resp BP Pulse Ox 98.7 F 86 20 100/63 98 04/29/16 00:01 04/29/16 00:01 04/29/16 00:01 04/29/16 00:01 04/29/16 00:01 Intake and Output: 04/29/16 04/29/16 06:59 18:59 Intake Total 800 Output Total 900 Balance -100 - Medications Medications: Current Medications Aspirin (Aspirin) 325 mg PEG DAILY [facility] Last Admin: 04/28/16 10:40 Dose: 325 mg Clopidogrel Bisulfate (Plavix) 75 mg PEG DAILY [facility] Last Admin: 04/28/16 10:41 Dose: 75 mg Famotidine (Pepcid) 20 mg PEG BID [facility] Last Admin: 04/28/16 18:50 Dose: 20 mg Lactobacillus Acidophilus (Bacid Acidophilus) 1 cap PEG BID [facility] Last Admin: 04/28/16 18:50 Dose: 1 cap Lisinopril (Zestril) 5 mg PEG DAILY [facility] Last Admin: 04/28/16 10:41 Dose: 5 mg Mupirocin (Bactroban Ointment) 1 gm TOP DAILY [facility] Last Admin: 04/27/16 14:49 Dose: 1 applic Oxybutynin Chloride (Ditropan Tab) 5 mg PEG TID [facility] Last Admin: 04/28/16 18:50 Dose: 5 mg Phenytoin (Dilantin) 100 mg PEG TID [facility] Last Admin: 04/28/16 18:50 Dose: 100 mg - Labs Labs: 04/28/16 08:09 04/28/16 08:09 PT 10.6 SECONDS (9.7-12.2) 11/24/15 14:10 INR 1.0 11/24/15 14:10 APTT 25 SECONDS (21-34) 11/24/15 14:10 - Additional Findings Additional findings: - Constitutional Appears: No Acute Distress, Chronically Ill - Head Exam Head Exam: ATRAUMATIC, NORMOCEPHALIC - ENT Exam ENT Exam: Mucous Membranes Dry Additional comments: trach collar in place, no secretions/blood observed in tubing. - Respiratory Exam Respiratory Exam: Decreased Breath Sounds, NORMAL BREATHING PATTERN. absent: Rales, Rhonchi, Wheezes - Cardiovascular Exam Cardiovascular Exam: REGULAR RHYTHM, +S1, +S2. absent: Gallop, Rubs, Murmur - GI/Abdominal Exam GI & Abdominal Exam: Soft, Normal Bowel Sounds. absent: Distended, Guarding, Rebound Additional comments: PEG tube in place, no erythema, discharge appreciated. Tube feed running not running at the time of exam. - Back Exam Additional comments: no open sacral wounds appreciated. no drainage appreciated - Neurological Exam Neurological Exam: Altered - Skin Skin Exam: Dry, Warm Assessment and Plan - Assessment and Plan (Free Text) Assessment: (1) Anoxic encephalopathy No acute changes in mental status PEG tube operational, continue tube feedings @ 50cc/hr nightly with 300cc flushes Labs on Mondays and . PEG tube placed at bedside by Dr. Chan on 11/27/15 Pending placement (2) Respiratory Failure 04/29/16: cont Trach care 04/23/16: WBC improved from 12.6 to 9.1 04/22: WBC count increased 8.2 -> 10.4 -> 12.6. Patient currently being treated for UTI. CXR from 04/18/16 shows no active disease. No leukocytosis, afebrile. Continue suction q4h. Sputum cultures ordered - POSITIVE for Pseudomonas [Note: patients with tracheostomy tubes usually grow Pseudomonas (colonized)- no aggressive treatment necessary if febrile or no leukocytosis] Rocephin 1gm IV started 04/14/16- discontinued 04/17/16 Azithromycin 500mg iv daily started 04/16/16 - discontinued 04/17/16 Monitor site for infection/inflammation. WBC elevated on 04/14/16, patient afebrile-repeat WBC 8.9 and afebrile 02/12 CXR: Linear atelectasis at the bases. Cardiomegaly. ID on case - Dr. Armstrong Sputum culture 12/06 + pseudomonas: probably colonization. No antibiotics per Dr. Armstrong tracheostomy with tube change by Dr. Chan on 11/27/15 (3) UTI 04/29/16: afebrile overnight. WBC 8.7 WNL yesterday. 04/23/16: WBC improved from 12.6 to 9.1 04/22: WBC count increased 8.2 -> 10.4 -> 12.6. Cipro IV discontinued and Cipro 500mg BID via PEG. Continue until April 24, then dc after morning dose. Will trend WBC count. If remains elevated or increases, consider repeating cultures. 04/18: afebrile, no leukocytosis. As per ID, continue treatment with Cipro 400mg IV q12h for total of 7 days. Discontinue on April 24 after AM dose. 04/17: afebrile, leukocytosis resolved. Urine cultures POSITIVE Pseudomonas and E. faecalis. Stop Azithromycin and Rocephin. Start Cipro 400mg IV q12h. Spoke with ID, Dr. Armstrong- agrees with cipro IV. Will also start Bacid to prevent secondary GI infection. 04/16: afebrile, leukocytosis resolved, cultures positive gram negative rods 04/15: afebrile. continue Rocephin. Cultures pending. CBC ordered for tomorrow to trend WBC count. 04/14: afebrile, WBC elevated 17: order to change baker catheter and obtain blood and urine cultures: Rocephin 1gm iv daily to follow cultures 04/13/16: monitor VS closely. Pt. afebrile however temp mildly elevated overnight. Chronic Ditropan 5mg PEG TID for leakage around catheter. Continue to monitor vital signs and wbc count (4) CAD (coronary artery disease) Cardiac stents on 06/13/15. Continue Lisinopril 5mg PEG daily Continue Plavix 75mg PEG daily Continue ASA 325mg PEG daily (5) Seizures Continue dilantin 100mg PEG TID Seizure precautions. (6) Bed sore Healed. continue wound care as needed, sensicare, and medihoney Sacral ulcer Stage II 0.5cm x 1.5cm- Healed. Continue repositioning of patient q2H. dolphin mattress. Heel air boots. (7) Prophylactic measure Lovenox 40 SC daily Pepcid 20 mg PEG BID <Stepan,Donnell M - Last Filed: 04/29/16 16:54> Objective - Vital Signs/Intake and Output Vital Signs (last 24 hours): Temp Pulse Resp BP Pulse Ox 98.6 F 71 20 106/69 100 04/29/16 16:38 04/29/16 16:38 04/29/16 16:38 04/29/16 16:38 04/29/16 16:38 Intake and Output: 04/29/16 04/29/16 06:59 18:59 Intake Total 800 1350 Output Total 900 1550 Balance -100 -200 - Medications Medications: Current Medications Aspirin (Aspirin) 325 mg PEG DAILY [facility] Last Admin: 04/29/16 10:13 Dose: 325 mg Clopidogrel Bisulfate (Plavix) 75 mg PEG DAILY [facility] Last Admin: 04/29/16 10:13 Dose: 75 mg Famotidine (Pepcid) 20 mg PEG BID [facility] Last Admin: 04/29/16 10:13 Dose: 20 mg Lactobacillus Acidophilus (Bacid Acidophilus) 1 cap PEG BID [facility] Last Admin: 04/29/16 10:13 Dose: 1 cap Lisinopril (Zestril) 5 mg PEG DAILY [facility] Last Admin: 04/29/16 10:15 Dose: 5 mg Mupirocin (Bactroban Ointment) 1 gm TOP DAILY [facility] Last Admin: 04/29/16 10:14 Dose: 1 applic Oxybutynin Chloride (Ditropan Tab) 5 mg PEG TID [facility] Last Admin: 04/29/16 13:04 Dose: 5 mg Phenytoin (Dilantin) 100 mg PEG TID [facility] Last Admin: 04/29/16 13:04 Dose: 100 mg - Labs Labs: 04/28/16 08:09 04/29/16 07:08 PT 10.6 SECONDS (9.7-12.2) 11/24/15 14:10 INR 1.0 11/24/15 14:10 APTT 25 SECONDS (21-34) 11/24/15 14:10 Attending/Attestation - Attestation I have personally seen and examined this patient.: Yes I have fully participated in the care of the patient.: Yes I have reviewed all pertinent clinical information, including history, physical exam and plan: Yes Notes (Text): 04/29/16 16:54 Patient seen and examined at bedside with the resident. There is no change in clinical condition. Continue local wound care of the decubitus ulcer which is healing very well. Turn and position patient every 2 hours."
[2016-04-29 07:56] LABS: ALBUMIN 3.2 g/dL (3.5-5.0)
[2016-04-29 07:59] LABS: ALB/GLOB RATIO 0.9 (1.0-2.1); ALT/SGPT 52 U/L (21-72); AST/SGOT 25 U/L (17-59); BLOOD UREA NITROGEN 19 mg/dL (9-20); GFR NON-AFRICAN AMERICAN > 60
[2016-04-29 08:00] LABS: CALCIUM 8.5 mg/dl (8.6-10.4)
[2016-04-29] MEDS: Lactobacillus Acidophilus 500 MU Cap PEG SCH ×2 (10:13→17:52)
[2016-04-29] MEDS: Phenytoin 100 mg/4 ml Oral Susp UD PEG SCH ×3 (10:13→17:52)
[2016-04-30 07:16] LABS: ALBUMIN 3.2 g/dL (3.5-5.0)
[2016-04-30 07:19] LABS: ALB/GLOB RATIO 0.9 (1.0-2.1); AST/SGOT 22 U/L (17-59); BLOOD UREA NITROGEN 17 mg/dL (9-20); GFR NON-AFRICAN AMERICAN > 60
[2016-04-30 07:20] LABS: ALT/SGPT 46 U/L (21-72)
[2016-04-30] MEDS: Lactobacillus Acidophilus 500 MU Cap PEG SCH ×2 (10:24→17:46)
[2016-04-30] MEDS: Phenytoin 100 mg/4 ml Oral Susp UD PEG SCH ×3 (10:24→17:46)
--- NOTE | 2016-04-30 16:29 | CP.PCM.PN ---
Subjective - Date & Time of Evaluation Date of Evaluation: 04/30/16 Time of Evaluation: 14:00 - Subjective Subjective: patient seen and examined t bedside Chart reviewed and events noted Objective - Vital Signs/Intake and Output Vital Signs (last 24 hours): Temp Pulse Resp BP Pulse Ox 98.1 F 85 20 103/68 100 04/30/16 16:15 04/30/16 16:15 04/30/16 16:15 04/30/16 16:15 04/30/16 16:15 Intake and Output: 04/30/16 04/30/16 06:59 18:59 Intake Total 400 Output Total 1400 Balance -1000 - Medications Medications: Current Medications Aspirin (Aspirin) 325 mg PEG DAILY [facility] Last Admin: 04/30/16 10:23 Dose: 325 mg Clopidogrel Bisulfate (Plavix) 75 mg PEG DAILY [facility] Last Admin: 04/30/16 10:23 Dose: 75 mg Famotidine (Pepcid) 20 mg PEG BID [facility] Last Admin: 04/30/16 09:15 Dose: 20 mg Lactobacillus Acidophilus (Bacid Acidophilus) 1 cap PEG BID [facility] Last Admin: 04/30/16 10:24 Dose: 1 cap Lisinopril (Zestril) 5 mg PEG DAILY [facility] Last Admin: 04/30/16 10:23 Dose: 5 mg Mupirocin (Bactroban Ointment) 1 gm TOP DAILY [facility] Last Admin: 04/30/16 10:24 Dose: 1 applic Oxybutynin Chloride (Ditropan Tab) 5 mg PEG TID [facility] Last Admin: 04/30/16 13:02 Dose: 5 mg Phenytoin (Dilantin) 100 mg PEG TID [facility] Last Admin: 04/30/16 13:02 Dose: 100 mg - Labs Labs: 04/28/16 08:09 04/30/16 06:48 PT 10.6 SECONDS (9.7-12.2) 11/24/15 14:10 INR 1.0 11/24/15 14:10 APTT 25 SECONDS (21-34) 11/24/15 14:10 - Head Exam Head Exam: ATRAUMATIC, NORMOCEPHALIC - Eye Exam Eye Exam: Normal appearance - ENT Exam ENT Exam: Mucous Membranes Moist - Respiratory Exam Respiratory Exam: Accessory Muscle Use Additional comments: tracheostomy present - Cardiovascular Exam Cardiovascular Exam: REGULAR RHYTHM, +S1, +S2 - GI/Abdominal Exam GI & Abdominal Exam: Soft. absent: Tenderness Additional comments: PEG tube in place - Extremities Exam Extremities Exam: absent: Pedal Edema Assessment and Plan - Assessment and Plan (Free Text) Assessment: (1) Anoxic encephalopathy No acute changes in mental status PEG tube operational, continue tube feedings @ 50cc/hr nightly with 300cc flushes Labs on Mondays and . PEG tube placed at bedside by Dr. Chan on 11/27/15 Pending placement (2) Respiratory Failure 04/29/16: Continue local care of tracheostomy. 04/29/16: cont Trach care 04/23/16: WBC improved from 12.6 to 9.1 04/22: WBC count increased 8.2 -> 10.4 -> 12.6. Patient currently being treated for UTI. CXR from 04/18/16 shows no active disease. No leukocytosis, afebrile. Continue suction q4h. Sputum cultures ordered - POSITIVE for Pseudomonas [Note: patients with tracheostomy tubes usually grow Pseudomonas (colonized)- no aggressive treatment necessary if febrile or no leukocytosis] Rocephin 1gm IV started 04/14/16- discontinued 04/17/16 Azithromycin 500mg iv daily started 04/16/16 - discontinued 04/17/16 Monitor site for infection/inflammation. WBC elevated on 04/14/16, patient afebrile-repeat WBC 8.9 and afebrile 02/12 CXR: Linear atelectasis at the bases. Cardiomegaly. ID on case - Dr. Armstrong Sputum culture 12/06 + pseudomonas: probably colonization. No antibiotics per Dr. Armstrong tracheostomy with tube change by Dr. Chan on 11/27/15 (3) UTI 04/29/16: afebrile overnight. WBC 8.7 WNL yesterday. 04/23/16: WBC improved from 12.6 to 9.1 04/22: WBC count increased 8.2 -> 10.4 -> 12.6. Cipro IV discontinued and Cipro 500mg BID via PEG. Continue until April 24, then dc after morning dose. Will trend WBC count. If remains elevated or increases, consider repeating cultures. 04/18: afebrile, no leukocytosis. As per ID, continue treatment with Cipro 400mg IV q12h for total of 7 days. Discontinue on April 24 after AM dose. 04/17: afebrile, leukocytosis resolved. Urine cultures POSITIVE Pseudomonas and E. faecalis. Stop Azithromycin and Rocephin. Start Cipro 400mg IV q12h. Spoke with ID, Dr. Armstrong- agrees with cipro IV. Will also start Bacid to prevent secondary GI infection. 04/16: afebrile, leukocytosis resolved, cultures positive gram negative rods 04/15: afebrile. continue Rocephin. Cultures pending. CBC ordered for tomorrow to trend WBC count. 04/14: afebrile, WBC elevated 17: order to change baker catheter and obtain blood and urine cultures: Rocephin 1gm iv daily to follow cultures 04/13/16: monitor VS closely. Pt. afebrile however temp mildly elevated overnight. Chronic Ditropan 5mg PEG TID for leakage around catheter. Continue to monitor vital signs and wbc count (4) CAD (coronary artery disease) Cardiac stents on 06/13/15. Continue Lisinopril 5mg PEG daily Continue Plavix 75mg PEG daily Continue ASA 325mg PEG daily (5) Seizures Continue dilantin 100mg PEG TID Seizure precautions. (6) Bed sore Healed. continue wound care as needed, [facility], and [facility] Sacral ulcer Stage II 0.5cm x 1.5cm- Healed. Continue repositioning of patient q2H. dolphin mattress. Heel air boots. (7) Prophylactic measure Lovenox 40 SC daily Pepcid 20 mg PEG BID
[2016-05-01 07:30] LABS: BASO % 0.3 % (0.0-2.0); EOS # 0.4 K/uL (0.0-0.7); EOS % 5.9 % (0.0-4.0); HEMOGLOBIN 12.3 g/dL (12.0-18.0); LYMPH # 1.8 K/uL (1.0-4.3); LYMPH % 25.6 % (20.0-40.0); MEAN CORPUSCULAR HEMOGLOBIN 30.4 pg (27.0-31.0); MEAN CORPUSCULAR HGB CONC 32.7 g/dL (33.0-37.0); MEAN PLATELET VOLUME 8.3 fL (7.2-11.7); MONO # 0.8 K/uL (0.0-0.8); MONO % 11.9 % (0.0-10.0); NEUT # 3.9 K/uL (1.8-7.0); NEUT % 56.3 % (50.0-75.0); NRBC % 0.1 % (0.0-2.0); RBC 4.05 Mil/uL (4.40-5.90)
[2016-05-01 07:49] LABS: ALBUMIN 3.3 g/dL (3.5-5.0)
[2016-05-01 07:52] LABS: ALB/GLOB RATIO 0.9 (1.0-2.1); AST/SGOT 27 U/L (17-59); BLOOD UREA NITROGEN 19 mg/dL (9-20); GFR NON-AFRICAN AMERICAN > 60
[2016-05-01 07:53] LABS: ALT/SGPT 51 U/L (21-72); CALCIUM 8.5 mg/dl (8.6-10.4)
[2016-05-01] MEDS: Lactobacillus Acidophilus 500 MU Cap PEG SCH ×2 (09:34→17:27)
[2016-05-01] MEDS: Phenytoin 100 mg/4 ml Oral Susp UD PEG SCH ×3 (09:34→17:25)
--- NOTE | 2016-05-01 15:24 | CP.PCM.PN ---
Subjective - Date & Time of Evaluation Date of Evaluation: 05/01/16 Time of Evaluation: 14:00 - Subjective Subjective: Patient seen and examined at bedside. Chart reviewed and events noted. No acute events overnight Objective - Vital Signs/Intake and Output Vital Signs (last 24 hours): Temp Pulse Resp BP Pulse Ox 98 F 67 20 135/88 96 05/01/16 08:00 05/01/16 08:00 05/01/16 08:00 05/01/16 08:00 05/01/16 08:00 Intake and Output: 05/01/16 05/01/16 06:59 18:59 Intake Total 1400 700 Output Total 900 500 Balance 500 200 - Medications Medications: Current Medications Aspirin (Aspirin) 325 mg PEG DAILY [facility] Last Admin: 05/01/16 09:34 Dose: 325 mg Clopidogrel Bisulfate (Plavix) 75 mg PEG DAILY [facility] Last Admin: 05/01/16 09:34 Dose: 75 mg Famotidine (Pepcid) 20 mg PEG BID [facility] Last Admin: 05/01/16 09:34 Dose: 20 mg Lactobacillus Acidophilus (Bacid Acidophilus) 1 cap PEG BID [facility] Last Admin: 05/01/16 09:34 Dose: 1 cap Lisinopril (Zestril) 5 mg PEG DAILY [facility] Last Admin: 05/01/16 09:34 Dose: 5 mg Mupirocin (Bactroban Ointment) 1 gm TOP DAILY [facility] Last Admin: 05/01/16 09:33 Dose: 1 applic Oxybutynin Chloride (Ditropan Tab) 5 mg PEG TID [facility] Last Admin: 05/01/16 13:21 Dose: 5 mg Phenytoin (Dilantin) 100 mg PEG TID [facility] Last Admin: 05/01/16 13:21 Dose: 100 mg - Labs Labs: 05/01/16 07:20 05/01/16 07:20 PT 10.6 SECONDS (9.7-12.2) 11/24/15 14:10 INR 1.0 11/24/15 14:10 APTT 25 SECONDS (21-34) 11/24/15 14:10 - Head Exam Head Exam: ATRAUMATIC, NORMOCEPHALIC - Eye Exam Eye Exam: PERRL. absent: Scleral icterus - ENT Exam ENT Exam: Mucous Membranes Moist - Respiratory Exam Respiratory Exam: Clear to Ausculation Bilateral Additional comments: Tracheostomy in place. - Cardiovascular Exam Cardiovascular Exam: REGULAR RHYTHM, +S1, +S2 - GI/Abdominal Exam GI & Abdominal Exam: Soft. absent: Tenderness - Extremities Exam Extremities Exam: absent: Pedal Edema Assessment and Plan - Assessment and Plan (Free Text) Assessment: (1) Anoxic encephalopathy No acute changes in mental status PEG tube operational, continue tube feedings @ 50cc/hr nightly with 300cc flushes Labs on Mondays and . PEG tube placed at bedside by Dr. Chan on 11/27/15 Pending placement (2) Respiratory Failure 05/01/16: Continue local care of tracheostomy. 04/29/16: Continue local care of tracheostomy. 04/29/16: cont Trach care 04/23/16: WBC improved from 12.6 to 9.1 04/22: WBC count increased 8.2 -> 10.4 -> 12.6. Patient currently being treated for UTI. CXR from 04/18/16 shows no active disease. No leukocytosis, afebrile. Continue suction q4h. Sputum cultures ordered - POSITIVE for Pseudomonas [Note: patients with tracheostomy tubes usually grow Pseudomonas (colonized)- no aggressive treatment necessary if febrile or no leukocytosis] Rocephin 1gm IV started 04/14/16- discontinued 04/17/16 Azithromycin 500mg iv daily started 04/16/16 - discontinued 04/17/16 Monitor site for infection/inflammation. WBC elevated on 04/14/16, patient afebrile-repeat WBC 8.9 and afebrile 02/12 CXR: Linear atelectasis at the bases. Cardiomegaly. ID on case - Dr. Armstrong Sputum culture 12/06 + pseudomonas: probably colonization. No antibiotics per Dr. Armstrong tracheostomy with tube change by Dr. Chan on 11/27/15 (3) UTI 05/01/16: No antibiotics now. 04/29/16: afebrile overnight. WBC 8.7 WNL yesterday. 04/23/16: WBC improved from 12.6 to 9.1 04/22: WBC count increased 8.2 -> 10.4 -> 12.6. Cipro IV discontinued and Cipro 500mg BID via PEG. Continue until April 24, then dc after morning dose. Will trend WBC count. If remains elevated or increases, consider repeating cultures. 04/18: afebrile, no leukocytosis. As per ID, continue treatment with Cipro 400mg IV q12h for total of 7 days. Discontinue on April 24 after AM dose. 04/17: afebrile, leukocytosis resolved. Urine cultures POSITIVE Pseudomonas and E. faecalis. Stop Azithromycin and Rocephin. Start Cipro 400mg IV q12h. Spoke with ID, Dr. Armstrong- agrees with cipro IV. Will also start Bacid to prevent secondary GI infection. 04/16: afebrile, leukocytosis resolved, cultures positive gram negative rods 04/15: afebrile. continue Rocephin. Cultures pending. CBC ordered for tomorrow to trend WBC count. 04/14: afebrile, WBC elevated 17: order to change baker catheter and obtain blood and urine cultures: Rocephin 1gm iv daily to follow cultures 04/13/16: monitor VS closely. Pt. afebrile however temp mildly elevated overnight. Chronic Ditropan 5mg PEG TID for leakage around catheter. Continue to monitor vital signs and wbc count (4) CAD (coronary artery disease) Cardiac stents on 06/13/15. Continue Lisinopril 5mg PEG daily Continue Plavix 75mg PEG daily Continue ASA 325mg PEG daily (5) Seizures Continue dilantin 100mg PEG TID Seizure precautions. (6) Bed sore Healed. continue wound care as needed, [facility], and [facility] Sacral ulcer Stage II 0.5cm x 1.5cm- Healed. Continue repositioning of patient q2H. dolphin mattress. Heel air boots. (7) Prophylactic measure Lovenox 40 SC daily Pepcid 20 mg PEG BID
[2016-05-02 08:19] LABS: ALBUMIN 3.3 g/dL (3.5-5.0)
[2016-05-02 08:22] LABS: ALB/GLOB RATIO 0.9 (1.0-2.1); AST/SGOT 40 U/L (17-59); BLOOD UREA NITROGEN 20 mg/dL (9-20); GFR NON-AFRICAN AMERICAN > 60
[2016-05-02 08:23] LABS: ALT/SGPT 48 U/L (21-72); CALCIUM 8.8 mg/dl (8.6-10.4)
[2016-05-02] MEDS: Lactobacillus Acidophilus 500 MU Cap PEG SCH ×2 (09:40→18:36)
[2016-05-02] MEDS: Phenytoin 100 mg/4 ml Oral Susp UD PEG SCH ×3 (09:40→18:36)
[2016-05-02] MEDS: Enoxaparin 40 mg Syringe SC SCH (09:42)
--- NOTE | 2016-05-02 18:23 | CP.PCM.PN ---
Subjective - Date & Time of Evaluation Date of Evaluation: 05/02/16 Time of Evaluation: 15:30 - Subjective Subjective: Patient seen and examined at bedside. Patient appears comfortable with no acute changes overnight. Objective - Vital Signs/Intake and Output Vital Signs (last 24 hours): Temp Pulse Resp BP Pulse Ox 97.5 F L 79 22 136/82 98 05/02/16 16:00 05/02/16 16:51 05/02/16 16:00 05/02/16 16:00 05/02/16 16:00 Intake and Output: 05/02/16 05/02/16 06:59 18:59 Intake Total 1350 750 Output Total 700 550 Balance 650 200 - Medications Medications: Current Medications Aspirin (Aspirin Chewable) 81 mg PEG DAILY [facility] Last Admin: 05/02/16 09:39 Dose: 81 mg Clopidogrel Bisulfate (Plavix) 75 mg PEG DAILY [facility] Last Admin: 05/02/16 09:43 Dose: 75 mg Enoxaparin Sodium (Lovenox) 40 mg SC DAILY [facility] Last Admin: 05/02/16 09:42 Dose: 40 mg Famotidine (Pepcid) 20 mg PEG BID [facility] Last Admin: 05/02/16 09:44 Dose: 20 mg Lactobacillus Acidophilus (Bacid Acidophilus) 1 cap PEG BID [facility] Last Admin: 05/02/16 09:40 Dose: 1 cap Lisinopril (Zestril) 5 mg PEG DAILY [facility] Last Admin: 05/02/16 09:43 Dose: 5 mg Mupirocin (Bactroban Ointment) 1 gm TOP DAILY [facility] Last Admin: 05/02/16 13:17 Dose: 1 applic Oxybutynin Chloride (Ditropan Tab) 5 mg PEG TID [facility] Last Admin: 05/02/16 13:57 Dose: 5 mg Phenytoin (Dilantin) 100 mg PEG TID [facility] Last Admin: 05/02/16 13:56 Dose: 100 mg - Labs Labs: 05/01/16 07:20 05/02/16 07:00 PT 10.6 SECONDS (9.7-12.2) 11/24/15 14:10 INR 1.0 11/24/15 14:10 APTT 25 SECONDS (21-34) 11/24/15 14:10 - Head Exam Head Exam: ATRAUMATIC, NORMOCEPHALIC - Eye Exam Eye Exam: PERRL - ENT Exam ENT Exam: Mucous Membranes Moist - Respiratory Exam Respiratory Exam: Clear to Ausculation Bilateral - Cardiovascular Exam Cardiovascular Exam: REGULAR RHYTHM, +S1, +S2 - GI/Abdominal Exam GI & Abdominal Exam: Soft, Normal Bowel Sounds. absent: Tenderness Additional comments: PEG tube - Extremities Exam Extremities Exam: absent: Pedal Edema Assessment and Plan - Assessment and Plan (Free Text) Assessment: (1) Anoxic encephalopathy No acute changes in mental status PEG tube operational, continue tube feedings @ 50cc/hr nightly with 300cc flushes Labs on Mondays and . PEG tube placed at bedside by Dr. Chan on 11/27/15 Pending placement (2) Respiratory Failure 05/02/16 patient is on trach collar. 05/01/16: Continue local care of tracheostomy. 04/29/16: Continue local care of tracheostomy. 04/29/16: cont Trach care 04/23/16: WBC improved from 12.6 to 9.1 04/22: WBC count increased 8.2 -> 10.4 -> 12.6. Patient currently being treated for UTI. CXR from 04/18/16 shows no active disease. No leukocytosis, afebrile. Continue suction q4h. Sputum cultures ordered - POSITIVE for Pseudomonas [Note: patients with tracheostomy tubes usually grow Pseudomonas (colonized)- no aggressive treatment necessary if febrile or no leukocytosis] Rocephin 1gm IV started 04/14/16- discontinued 04/17/16 Azithromycin 500mg iv daily started 04/16/16 - discontinued 04/17/16 Monitor site for infection/inflammation. WBC elevated on 04/14/16, patient afebrile-repeat WBC 8.9 and afebrile 02/12 CXR: Linear atelectasis at the bases. Cardiomegaly. ID on case - Dr. Armstrong Sputum culture 12/06 + pseudomonas: probably colonization. No antibiotics per Dr. Armstrong tracheostomy with tube change by Dr. Chan on 11/27/15 (3) UTI 05/02/16: Patient is off all antibiotics. 05/01/16: No antibiotics now. 04/29/16: afebrile overnight. WBC 8.7 WNL yesterday. 04/23/16: WBC improved from 12.6 to 9.1 04/22: WBC count increased 8.2 -> 10.4 -> 12.6. Cipro IV discontinued and Cipro 500mg BID via PEG. Continue until April 24, then dc after morning dose. Will trend WBC count. If remains elevated or increases, consider repeating cultures. 04/18: afebrile, no leukocytosis. As per ID, continue treatment with Cipro 400mg IV q12h for total of 7 days. Discontinue on April 24 after AM dose. 04/17: afebrile, leukocytosis resolved. Urine cultures POSITIVE Pseudomonas and E. faecalis. Stop Azithromycin and Rocephin. Start Cipro 400mg IV q12h. Spoke with ID, Dr. Armstrong- agrees with cipro IV. Will also start Bacid to prevent secondary GI infection. 04/16: afebrile, leukocytosis resolved, cultures positive gram negative rods 04/15: afebrile. continue Rocephin. Cultures pending. CBC ordered for tomorrow to trend WBC count. 04/14: afebrile, WBC elevated 17: order to change baker catheter and obtain blood and urine cultures: Rocephin 1gm iv daily to follow cultures 04/13/16: monitor VS closely. Pt. afebrile however temp mildly elevated overnight. Chronic Ditropan 5mg PEG TID for leakage around catheter. Continue to monitor vital signs and wbc count (4) CAD (coronary artery disease) Cardiac stents on 06/13/15. Continue Lisinopril 5mg PEG daily Continue Plavix 75mg PEG daily Continue ASA 325mg PEG daily (5) Seizures Continue dilantin 100mg PEG TID Seizure precautions. (6) Bed sore Healed. [facility] Sacral ulcer Stage II 0.5cm x 1.5cm- Healed. Continue repositioning of patient q2H. dolphin mattress. Heel air boots. (7) Prophylactic measure Lovenox 40 SC daily Pepcid 20 mg PEG BID
--- NOTE | 2016-05-03 03:16 | CP.PCM.PN ---
"<Mariella Wagner - Last Filed: 05/03/16 03:10> Subjective - Date & Time of Evaluation Date of Evaluation: 05/03/16 Time of Evaluation: 03:10 - Subjective Subjective: PGY1 Medicine Progress Note | Dr. eDmetrice Mccarty Service Patient seen and examined at bedside this morning. Patient with no acute events overnight. PEG tube, Trach collar in place. Yoo in place with cherie colored urine. ROS unobtainable since patient is non verbal. No mental status changes. Objective - Vital Signs/Intake and Output Vital Signs (last 24 hours): Temp Pulse Resp BP Pulse Ox 98.3 F 74 20 109/74 98 05/02/16 23:26 05/02/16 23:26 05/02/16 23:26 05/02/16 23:26 05/02/16 23:26 Intake and Output: 05/02/16 05/03/16 18:59 06:59 Intake Total 750 Output Total 550 700 Balance 200 -700 - Medications Medications: Current Medications Aspirin (Aspirin Chewable) 81 mg PEG DAILY [facility] Last Admin: 05/02/16 09:39 Dose: 81 mg Clopidogrel Bisulfate (Plavix) 75 mg PEG DAILY [facility] Last Admin: 05/02/16 09:43 Dose: 75 mg Enoxaparin Sodium (Lovenox) 40 mg SC DAILY [facility] Last Admin: 05/02/16 09:42 Dose: 40 mg Famotidine (Pepcid) 20 mg PEG BID [facility] Last Admin: 05/02/16 18:35 Dose: 20 mg Lactobacillus Acidophilus (Bacid Acidophilus) 1 cap PEG BID [facility] Last Admin: 05/02/16 18:36 Dose: 1 cap Lisinopril (Zestril) 5 mg PEG DAILY [facility] Last Admin: 05/02/16 09:43 Dose: 5 mg Mupirocin (Bactroban Ointment) 1 gm TOP DAILY [facility] Last Admin: 05/02/16 13:17 Dose: 1 applic Oxybutynin Chloride (Ditropan Tab) 5 mg PEG TID [facility] Last Admin: 05/02/16 18:36 Dose: 5 mg Phenytoin (Dilantin) 100 mg PEG TID [facility] Last Admin: 05/02/16 18:36 Dose: 100 mg - Labs Labs: 05/01/16 07:20 05/02/16 07:00 PT 10.6 SECONDS (9.7-12.2) 11/24/15 14:10 INR 1.0 11/24/15 14:10 APTT 25 SECONDS (21-34) 11/24/15 14:10 - Constitutional Appears: No Acute Distress - Head Exam Head Exam: NORMAL INSPECTION, NORMOCEPHALIC - Eye Exam Eye Exam: Normal appearance - ENT Exam ENT Exam: Mucous Membranes Moist - Neck Exam Additional comments: +trach collar in place. - Respiratory Exam Respiratory Exam: Clear to Ausculation Bilateral, NORMAL BREATHING PATTERN - Cardiovascular Exam Cardiovascular Exam: REGULAR RHYTHM, +S1, +S2 - GI/Abdominal Exam GI & Abdominal Exam: Soft. absent: Distended - Extremities Exam Extremities Exam: Normal Inspection. absent: Pedal Edema - Neurological Exam Neurological Exam: Altered, Awake - Psychiatric Exam Psychiatric exam: Normal Affect, Normal Mood - Skin Skin Exam: Dry, Normal Color, Warm Assessment and Plan - Assessment and Plan (Free Text) Assessment: (1) Anoxic encephalopathy No acute changes in mental status PEG tube operational, continue tube feedings @ 50cc/hr nightly with 300cc flushes Labs on Mondays and . PEG tube placed at bedside by Dr. Chan on 11/27/15 Pending placement (2) Respiratory Failure Cont Trach care ID on case - Dr. Armstrong Sputum culture 12/06 + pseudomonas: probably colonization. No antibiotics per Dr. Armstrong tracheostomy with tube change by Dr. Chan on 11/27/15 (3) UTI Afebrile, leukocytosis resolved. Patient had Cipro 400mg IV q12h for total of 7 days Urine cultures POSITIVE Pseudomonas and E. faecalis. Ditropan 5mg PEG TID for leakage around catheter. Continue to monitor vital signs and wbc count (4) CAD (coronary artery disease) Cardiac stents on 06/13/15. Continue Lisinopril 5mg PEG daily Continue Plavix 75mg PEG daily Continue ASA 325mg PEG daily (5) Seizures Continue dilantin 100mg PEG TID Seizure precautions. (6) Bed sore Healed. continue wound care as needed, [facility], and [facility] Sacral ulcer Stage II 0.5cm x 1.5cm- Healed. Continue repositioning of patient q2H. dolphin mattress. Heel air boots. (7) Prophylactic measure Lovenox 40 SC daily Pepcid 20 mg PEG BID <Donnell Ying - Last Filed: 05/03/16 16:23> Objective - Vital Signs/Intake and Output Vital Signs (last 24 hours): Temp Pulse Resp BP Pulse Ox 98.3 F 70 18 114/75 100 05/03/16 08:00 05/03/16 08:00 05/03/16 08:00 05/03/16 08:00 05/03/16 08:00 Intake and Output: 05/03/16 05/03/16 06:59 18:59 Intake Total 1350 Output Total 700 1300 Balance -700 50 - Medications Medications: Current Medications Aspirin (Aspirin Chewable) 81 mg PEG DAILY [facility] Last Admin: 05/03/16 09:21 Dose: 81 mg Clopidogrel Bisulfate (Plavix) 75 mg PEG DAILY [facility] Last Admin: 05/03/16 09:21 Dose: 75 mg Enoxaparin Sodium (Lovenox) 40 mg SC DAILY [facility] Last Admin: 05/03/16 09:21 Dose: 40 mg Famotidine (Pepcid) 20 mg PEG BID [facility] Last Admin: 05/03/16 09:21 Dose: 20 mg Lactobacillus Acidophilus (Bacid Acidophilus) 1 cap PEG BID [facility] Last Admin: 05/03/16 09:44 Dose: 1 cap Lisinopril (Zestril) 5 mg PEG DAILY [facility] Last Admin: 05/03/16 09:21 Dose: 5 mg Mupirocin (Bactroban Ointment) 1 gm TOP DAILY [facility] Last Admin: 05/03/16 09:24 Dose: 1 applic Oxybutynin Chloride (Ditropan Tab) 5 mg PEG TID [facility] Last Admin: 05/03/16 13:11 Dose: 5 mg Phenytoin (Dilantin) 100 mg PEG TID [facility] Last Admin: 05/03/16 13:11 Dose: 100 mg - Labs Labs: 05/01/16 07:20 05/03/16 08:12 PT 10.6 SECONDS (9.7-12.2) 11/24/15 14:10 INR 1.0 11/24/15 14:10 APTT 25 SECONDS (21-34) 11/24/15 14:10 Attending/Attestation - Attestation I have personally seen and examined this patient.: Yes I have fully participated in the care of the patient.: Yes I have reviewed all pertinent clinical information, including history, physical exam and plan: Yes Notes (Text): 05/03/16 16:22 Patient seen and examined at bedside . No acute events noted overnight. Continue current management. Continue local care of tracheostomy and PEG tube."
[2016-05-03 08:43] LABS: ALBUMIN 3.4 g/dL (3.5-5.0)
[2016-05-03 08:46] LABS: ALB/GLOB RATIO 0.9 (1.0-2.1); ALT/SGPT 56 U/L (21-72); AST/SGOT 27 U/L (17-59); BLOOD UREA NITROGEN 17 mg/dL (9-20); GFR NON-AFRICAN AMERICAN > 60
[2016-05-03] MEDS: Enoxaparin 40 mg Syringe SC SCH (09:21)
[2016-05-03] MEDS: Phenytoin 100 mg/4 ml Oral Susp UD PEG SCH ×3 (09:22→17:23)
[2016-05-03] MEDS: Lactobacillus Acidophilus 500 MU Cap PEG SCH ×2 (09:44→17:23)
--- NOTE | 2016-05-04 00:59 | CP.PCM.PN ---
"<Mariella Wagner - Last Filed: 05/04/16 00:56> Subjective - Date & Time of Evaluation Date of Evaluation: 05/04/16 Time of Evaluation: 00:56 - Subjective Subjective: PGY1 Medicine Progress Note | Dr. Demetrice Mccarty Service Patient seen and examined at bedside this morning. Patient with no acute events overnight. ROS unobtainable since patient is non verbal. No mental status changes. PEG tube, Trach collar in place. Objective - Vital Signs/Intake and Output Vital Signs (last 24 hours): Temp Pulse Resp BP Pulse Ox 98.1 F 99 H 20 110/76 66 L 05/03/16 15:00 05/03/16 15:00 05/03/16 15:00 05/03/16 15:00 05/03/16 15:00 Intake and Output: 05/03/16 05/04/16 18:59 06:59 Intake Total 1350 750 Output Total 1300 Balance 50 750 - Medications Medications: Current Medications Aspirin (Aspirin Chewable) 81 mg PEG DAILY [facility] Last Admin: 05/03/16 09:21 Dose: 81 mg Clopidogrel Bisulfate (Plavix) 75 mg PEG DAILY [facility] Last Admin: 05/03/16 09:21 Dose: 75 mg Enoxaparin Sodium (Lovenox) 40 mg SC DAILY [facility] Last Admin: 05/03/16 09:21 Dose: 40 mg Famotidine (Pepcid) 20 mg PEG BID [facility] Last Admin: 05/03/16 17:24 Dose: 20 mg Lactobacillus Acidophilus (Bacid Acidophilus) 1 cap PEG BID [facility] Last Admin: 05/03/16 17:23 Dose: 1 cap Lisinopril (Zestril) 5 mg PEG DAILY [facility] Last Admin: 05/03/16 09:21 Dose: 5 mg Mupirocin (Bactroban Ointment) 1 gm TOP DAILY [facility] Last Admin: 05/03/16 09:24 Dose: 1 applic Oxybutynin Chloride (Ditropan Tab) 5 mg PEG TID [facility] Last Admin: 05/03/16 17:24 Dose: 5 mg Phenytoin (Dilantin) 100 mg PEG TID [facility] Last Admin: 05/03/16 17:23 Dose: 100 mg - Labs Labs: 05/01/16 07:20 05/03/16 08:12 PT 10.6 SECONDS (9.7-12.2) 11/24/15 14:10 INR 1.0 11/24/15 14:10 APTT 25 SECONDS (21-34) 11/24/15 14:10 - Constitutional Appears: No Acute Distress - Head Exam Head Exam: NORMAL INSPECTION, NORMOCEPHALIC - Eye Exam Eye Exam: Normal appearance - ENT Exam ENT Exam: Mucous Membranes Moist - Neck Exam Additional comments: +trach collar - Respiratory Exam Respiratory Exam: Clear to Ausculation Bilateral, NORMAL BREATHING PATTERN - Cardiovascular Exam Cardiovascular Exam: REGULAR RHYTHM, +S1, +S2. absent: Murmur - GI/Abdominal Exam GI & Abdominal Exam: Soft. absent: Distended, Tenderness - Extremities Exam Extremities Exam: Normal Inspection. absent: Pedal Edema - Neurological Exam Neurological Exam: Altered, Awake - Skin Skin Exam: Dry, Normal Color, Warm Assessment and Plan - Assessment and Plan (Free Text) Assessment: (1) Anoxic encephalopathy No acute changes in mental status PEG tube operational, continue tube feedings. Labs on Mondays and . PEG tube placed at bedside by Dr. Chan on 11/27/15 Pending placement (2) Respiratory Failure Cont Trach care ID on case - Dr. Armstrong Sputum culture 12/06 + pseudomonas: probably colonization. No antibiotics per Dr. Armstrong tracheostomy with tube change by Dr. Chan on 11/27/15 (3) UTI Afebrile, leukocytosis resolved. Patient had Cipro 400mg IV q12h for total of 7 days Urine cultures POSITIVE Pseudomonas and E. faecalis. Ditropan 5mg PEG TID for leakage around catheter. Continue to monitor vital signs and wbc count (4) CAD (coronary artery disease) Cardiac stents on 06/13/15. Continue Lisinopril 5mg PEG daily Continue Plavix 75mg PEG daily Continue ASA 325mg PEG daily (5) Seizures Continue Dilantin 100mg PEG TID Seizure precautions. (6) Bed sore Healed. continue wound care as needed, [facility], and [facility] Sacral ulcer Stage II 0.5cm x 1.5cm- Healed. Continue repositioning of patient q2H. dolphin mattress. Heel air boots. (7) Prophylactic measure Lovenox 40 SC daily Pepcid 20 mg PEG BID <Donnell Ying - Last Filed: 05/04/16 14:28> Objective - Vital Signs/Intake and Output Vital Signs (last 24 hours): Temp Pulse Resp BP Pulse Ox 98.5 F 82 18 101/64 100 05/04/16 09:16 05/04/16 09:16 05/04/16 09:16 05/04/16 09:16 05/04/16 09:16 Intake and Output: 05/04/16 05/04/16 06:59 18:59 Intake Total 750 700 Output Total 400 Balance 750 300 - Medications Medications: Current Medications Aspirin (Aspirin Chewable) 81 mg PEG DAILY [facility] Last Admin: 05/04/16 10:01 Dose: 81 mg Clopidogrel Bisulfate (Plavix) 75 mg PEG DAILY [facility] Last Admin: 05/04/16 10:01 Dose: 75 mg Enoxaparin Sodium (Lovenox) 40 mg SC DAILY [facility] Last Admin: 05/04/16 10:00 Dose: 40 mg Famotidine (Pepcid) 20 mg PEG BID [facility] Last Admin: 05/04/16 10:02 Dose: 20 mg Lactobacillus Acidophilus (Bacid Acidophilus) 1 cap PEG BID [facility] Last Admin: 05/04/16 10:02 Dose: 1 cap Lisinopril (Zestril) 5 mg PEG DAILY [facility] Last Admin: 05/04/16 10:02 Dose: 5 mg Mupirocin (Bactroban Ointment) 1 gm TOP DAILY [facility] Last Admin: 05/03/16 09:24 Dose: 1 applic Oxybutynin Chloride (Ditropan Tab) 5 mg PEG TID [facility] Last Admin: 05/04/16 13:36 Dose: 5 mg Phenytoin (Dilantin) 100 mg PEG TID [facility] Last Admin: 05/04/16 13:36 Dose: 100 mg - Labs Labs: 05/01/16 07:20 05/03/16 08:12 PT 10.6 SECONDS (9.7-12.2) 11/24/15 14:10 INR 1.0 11/24/15 14:10 APTT 25 SECONDS (21-34) 11/24/15 14:10 Attending/Attestation - Attestation I have personally seen and examined this patient.: Yes I have fully participated in the care of the patient.: Yes I have reviewed all pertinent clinical information, including history, physical exam and plan: Yes Notes (Text): 05/04/16 14:27 Patient seen and examined at bedside. No change in clinical condition. Continue local care of tracheostomy and PEG site. Continue local wound care of decubitus ulcer which is completely healed now."
[2016-05-04] MEDS: Enoxaparin 40 mg Syringe SC SCH (10:00)
[2016-05-04] MEDS: Phenytoin 100 mg/4 ml Oral Susp UD PEG SCH ×3 (10:01→17:55)
[2016-05-04] MEDS: Lactobacillus Acidophilus 500 MU Cap PEG SCH ×2 (10:02→17:55)
[2016-05-05 08:04] LABS: BASO % 0.3 % (0.0-2.0); EOS # 0.4 K/uL (0.0-0.7); HEMOGLOBIN 11.5 g/dL (12.0-18.0); LYMPH # 1.6 K/uL (1.0-4.3); LYMPH % 20.2 % (20.0-40.0); MEAN CELL VOLUME 92.9 fL (80.0-94.0); MEAN CORPUSCULAR HEMOGLOBIN 30.8 pg (27.0-31.0); MEAN CORPUSCULAR HGB CONC 33.2 g/dL (33.0-37.0); MEAN PLATELET VOLUME 8.5 fL (7.2-11.7); MONO # 0.9 K/uL (0.0-0.8); MONO % 11.7 % (0.0-10.0); NEUT % 62.8 % (50.0-75.0); NRBC % 0.1 % (0.0-2.0); RBC 3.73 Mil/uL (4.40-5.90); RED CELL DISTRIBUTION WIDTH 14.6 % (11.5-14.5)
[2016-05-05 08:19] LABS: ALBUMIN 3.1 g/dL (3.5-5.0)
[2016-05-05 08:21] LABS: GFR NON-AFRICAN AMERICAN > 60
[2016-05-05 08:22] LABS: ALB/GLOB RATIO 0.8 (1.0-2.1); ALT/SGPT 50 U/L (21-72); AST/SGOT 27 U/L (17-59); BLOOD UREA NITROGEN 19 mg/dL (9-20); CALCIUM 8.6 mg/dl (8.6-10.4)
[2016-05-05] MEDS: Enoxaparin 40 mg Syringe SC SCH (11:02)
[2016-05-05] MEDS: Phenytoin 100 mg/4 ml Oral Susp UD PEG SCH ×3 (11:02→18:01)
[2016-05-05] MEDS: Lactobacillus Acidophilus 500 MU Cap PEG SCH ×2 (11:02→18:00)
--- NOTE | 2016-05-05 11:26 | CP.PCM.PN ---
<Karis Antonio I - Last Filed: 05/05/16 11:22> Subjective - Date & Time of Evaluation Date of Evaluation: 05/05/16 Time of Evaluation: 07:40 - Subjective Subjective: PGY2 on Hospitalist Service Patient seen and examined at bedside. Eyes open. No acute events overnight per nursing staff. Objective - Vital Signs/Intake and Output Vital Signs (last 24 hours): Temp Pulse Resp BP Pulse Ox 98.7 F 89 20 105/80 98 05/05/16 07:35 05/05/16 07:35 05/05/16 07:35 05/05/16 07:35 05/05/16 07:35 Intake and Output: 05/05/16 05/05/16 06:59 18:59 Intake Total 1450 Output Total 1300 Balance 150 - Medications Medications: Current Medications Aspirin (Aspirin Chewable) 81 mg PEG DAILY [facility] Last Admin: 05/05/16 11:02 Dose: 81 mg Clopidogrel Bisulfate (Plavix) 75 mg PEG DAILY [facility] Last Admin: 05/05/16 11:03 Dose: 75 mg Enoxaparin Sodium (Lovenox) 40 mg SC DAILY [facility] Last Admin: 05/05/16 11:02 Dose: 40 mg Famotidine (Pepcid) 20 mg PEG BID [facility] Last Admin: 05/05/16 11:03 Dose: 20 mg Lactobacillus Acidophilus (Bacid Acidophilus) 1 cap PEG BID [facility] Last Admin: 05/05/16 11:02 Dose: 1 cap Lisinopril (Zestril) 5 mg PEG DAILY [facility] Last Admin: 05/05/16 11:03 Dose: 5 mg Mupirocin (Bactroban Ointment) 1 gm TOP DAILY [facility] Last Admin: 05/05/16 11:04 Dose: 1 applic Oxybutynin Chloride (Ditropan Tab) 5 mg PEG TID [facility] Last Admin: 05/05/16 11:03 Dose: 5 mg Phenytoin (Dilantin) 100 mg PEG TID [facility] Last Admin: 05/05/16 11:02 Dose: 100 mg - Labs Labs: 05/05/16 07:57 05/05/16 07:57 PT 10.6 SECONDS (9.7-12.2) 11/24/15 14:10 INR 1.0 11/24/15 14:10 APTT 25 SECONDS (21-34) 11/24/15 14:10 - Constitutional Appears: Non-toxic, No Acute Distress - Head Exam Head Exam: ATRAUMATIC, NORMAL INSPECTION, NORMOCEPHALIC - Eye Exam Eye Exam: Normal appearance - ENT Exam ENT Exam: Mucous Membranes Moist - Neck Exam Additional comments: trach collar in place - Respiratory Exam Respiratory Exam: Clear to Ausculation Bilateral, NORMAL BREATHING PATTERN - Cardiovascular Exam Cardiovascular Exam: REGULAR RHYTHM, RRR, +S1, +S2 - GI/Abdominal Exam GI & Abdominal Exam: Soft, Normal Bowel Sounds. absent: Tenderness - Extremities Exam Extremities Exam: Normal Inspection. absent: Pedal Edema - Neurological Exam Neurological Exam: Alert, Awake - Skin Skin Exam: Dry, Normal Color, Warm Assessment and Plan - Assessment and Plan (Free Text) Assessment: (1) Anoxic encephalopathy No acute changes in mental status PEG tube operational, continue tube feedings. Labs on Mondays and . CBC from 05/05 wnl. PEG tube placed at bedside by Dr. Chan on 11/27/15 Pending placement (2) Respiratory Failure Cont Trach care ID on case - Dr. Armstrong Sputum culture 12/06 + pseudomonas: probably colonization. No antibiotics per Dr. Armstrong tracheostomy with tube change by Dr. Chan on 11/27/15 (3) UTI Afebrile, leukocytosis resolved. Patient had Cipro 400mg IV q12h for total of 7 days Urine cultures POSITIVE Pseudomonas and E. faecalis. Ditropan 5mg PEG TID for leakage around catheter. Continue to monitor vital signs and wbc count (4) CAD (coronary artery disease) Cardiac stents on 06/13/15. Continue Lisinopril 5mg PEG daily Continue Plavix 75mg PEG daily Continue ASA 325mg PEG daily (5) Seizures Continue Dilantin 100mg PEG TID Seizure precautions. (6) Bed sore Healed. continue wound care as needed, [facility], and [facility] Sacral ulcer Stage II 0.5cm x 1.5cm- Healed. Continue repositioning of patient q2H. dolphin mattress. Heel air boots. (7) Prophylactic measure Lovenox 40 SC daily Pepcid 20 mg PEG BID <Rashel Rodrigues - Last Filed: 05/05/16 18:07> Objective - Vital Signs/Intake and Output Vital Signs (last 24 hours): Temp Pulse Resp BP Pulse Ox 98.3 F 79 20 124/84 99 05/05/16 15:54 05/05/16 15:54 05/05/16 15:54 05/05/16 15:54 05/05/16 15:54 Intake and Output: 05/05/16 05/05/16 06:59 18:59 Intake Total 1450 800 Output Total 1300 500 Balance 150 300 - Medications Medications: Current Medications Aspirin (Aspirin Chewable) 81 mg PEG DAILY [facility] Last Admin: 05/05/16 11:02 Dose: 81 mg Clopidogrel Bisulfate (Plavix) 75 mg PEG DAILY [facility] Last Admin: 05/05/16 11:03 Dose: 75 mg Enoxaparin Sodium (Lovenox) 40 mg SC DAILY [facility] Last Admin: 05/05/16 11:02 Dose: 40 mg Famotidine (Pepcid) 20 mg PEG BID [facility] Last Admin: 05/05/16 18:01 Dose: 20 mg Lactobacillus Acidophilus (Bacid Acidophilus) 1 cap PEG BID [facility] Last Admin: 05/05/16 18:00 Dose: 1 cap Lisinopril (Zestril) 5 mg PEG DAILY [facility] Last Admin: 05/05/16 11:03 Dose: 5 mg Mupirocin (Bactroban Ointment) 1 gm TOP DAILY [facility] Last Admin: 05/05/16 11:04 Dose: 1 applic Oxybutynin Chloride (Ditropan Tab) 5 mg PEG TID [facility] Last Admin: 05/05/16 18:01 Dose: 5 mg Phenytoin (Dilantin) 100 mg PEG TID [facility] Last Admin: 05/05/16 18:01 Dose: 100 mg - Labs Labs: 05/05/16 07:57 05/05/16 07:57 PT 10.6 SECONDS (9.7-12.2) 11/24/15 14:10 INR 1.0 11/24/15 14:10 APTT 25 SECONDS (21-34) 11/24/15 14:10 Attending/Attestation - Attestation I have personally seen and examined this patient.: Yes I have fully participated in the care of the patient.: Yes I have reviewed all pertinent clinical information, including history, physical exam and plan: Yes
--- NOTE | 2016-05-06 10:09 | CP.PCM.PN ---
<Karis Antonio I - Last Filed: 05/06/16 10:07> Subjective - Date & Time of Evaluation Date of Evaluation: 05/06/16 Time of Evaluation: 07:35 - Subjective Subjective: PGY2 on Hospitalist Service Patient seen and examined at bedside. No acute events overnight per nursing. Patient's eyes are open. Objective - Vital Signs/Intake and Output Vital Signs (last 24 hours): Temp Pulse Resp BP Pulse Ox 98.2 F 85 20 110/66 98 05/06/16 07:23 05/06/16 07:23 05/06/16 07:23 05/06/16 07:23 05/06/16 07:23 Intake and Output: 05/06/16 05/06/16 06:59 18:59 Intake Total 750 700 Output Total 700 400 Balance 50 300 - Medications Medications: Current Medications Aspirin (Aspirin Chewable) 81 mg PEG DAILY [facility] Last Admin: 05/05/16 11:02 Dose: 81 mg Clopidogrel Bisulfate (Plavix) 75 mg PEG DAILY [facility] Last Admin: 05/05/16 11:03 Dose: 75 mg Enoxaparin Sodium (Lovenox) 40 mg SC DAILY [facility] Last Admin: 05/05/16 11:02 Dose: 40 mg Famotidine (Pepcid) 20 mg PEG BID [facility] Last Admin: 05/05/16 18:01 Dose: 20 mg Lactobacillus Acidophilus (Bacid Acidophilus) 1 cap PEG BID [facility] Last Admin: 05/05/16 18:00 Dose: 1 cap Lisinopril (Zestril) 5 mg PEG DAILY [facility] Last Admin: 05/05/16 11:03 Dose: 5 mg Mupirocin (Bactroban Ointment) 1 gm TOP DAILY [facility] Last Admin: 05/05/16 11:04 Dose: 1 applic Oxybutynin Chloride (Ditropan Tab) 5 mg PEG TID [facility] Last Admin: 05/05/16 18:01 Dose: 5 mg Phenytoin (Dilantin) 100 mg PEG TID [facility] Last Admin: 05/05/16 18:01 Dose: 100 mg - Labs Labs: 05/05/16 07:57 05/05/16 07:57 PT 10.6 SECONDS (9.7-12.2) 11/24/15 14:10 INR 1.0 11/24/15 14:10 APTT 25 SECONDS (21-34) 11/24/15 14:10 - Constitutional Appears: No Acute Distress, Chronically Ill - Head Exam Head Exam: ATRAUMATIC, NORMAL INSPECTION, NORMOCEPHALIC - Respiratory Exam Additional comments: coarse breath sounds - Cardiovascular Exam Cardiovascular Exam: REGULAR RHYTHM, RRR, +S1, +S2 - GI/Abdominal Exam GI & Abdominal Exam: Soft, Normal Bowel Sounds. absent: Tenderness - Extremities Exam Extremities Exam: Normal Inspection. absent: Pedal Edema - Skin Skin Exam: Dry, Normal Color, Warm Assessment and Plan - Assessment and Plan (Free Text) Assessment: (1) Anoxic encephalopathy No acute changes in mental status PEG tube operational, continue tube feedings. Labs on Mondays and . CBC from 05/05 wnl. PEG tube placed at bedside by Dr. Chan on 11/27/15 Pending placement (2) Respiratory Failure Cont Trach care ID on case - Dr. Armstrong Sputum culture 12/06 + pseudomonas: probably colonization. No antibiotics per Dr. Armstrong tracheostomy with tube change by Dr. Chan on 11/27/15 (3) UTI Afebrile, leukocytosis resolved. Patient had Cipro 400mg IV q12h for total of 7 days Urine cultures POSITIVE Pseudomonas and E. faecalis. Ditropan 5mg PEG TID for leakage around catheter. Continue to monitor vital signs and wbc count (4) CAD (coronary artery disease) Cardiac stents on 06/13/15. Continue Lisinopril 5mg PEG daily Continue Plavix 75mg PEG daily Continue ASA 325mg PEG daily (5) Seizures Continue Dilantin 100mg PEG TID Seizure precautions. (6) Bed sore Healed. continue wound care as needed, [facility], and [facility] Sacral ulcer Stage II 0.5cm x 1.5cm- Healed. Continue repositioning of patient q2H. dolphin mattress. Heel air boots. (7) Prophylactic measure Lovenox 40 SC daily Pepcid 20 mg PEG BID <Rashel Rodrigues - Last Filed: 05/06/16 16:47> Objective - Vital Signs/Intake and Output Vital Signs (last 24 hours): Temp Pulse Resp BP Pulse Ox 98.4 F 82 20 116/78 100 05/06/16 16:07 05/06/16 16:07 05/06/16 16:07 05/06/16 16:07 05/06/16 16:07 Intake and Output: 05/06/16 05/06/16 06:59 18:59 Intake Total 750 1440 Output Total 700 1300 Balance 50 140 - Medications Medications: Current Medications Aspirin (Aspirin Chewable) 81 mg PEG DAILY [facility] Last Admin: 05/06/16 10:24 Dose: 81 mg Clopidogrel Bisulfate (Plavix) 75 mg PEG DAILY [facility] Last Admin: 05/06/16 10:24 Dose: 75 mg Enoxaparin Sodium (Lovenox) 40 mg SC DAILY [facility] Last Admin: 05/06/16 10:25 Dose: 40 mg Famotidine (Pepcid) 20 mg PEG BID [facility] Last Admin: 05/06/16 10:24 Dose: 20 mg Lactobacillus Acidophilus (Bacid Acidophilus) 1 cap PEG BID [facility] Last Admin: 05/06/16 10:24 Dose: 1 cap Lisinopril (Zestril) 5 mg PEG DAILY [facility] Last Admin: 05/06/16 10:24 Dose: 5 mg Mupirocin (Bactroban Ointment) 1 gm TOP DAILY [facility] Last Admin: 05/06/16 10:27 Dose: 1 applic Oxybutynin Chloride (Ditropan Tab) 5 mg PEG TID [facility] Last Admin: 05/06/16 13:35 Dose: 5 mg Phenytoin (Dilantin) 100 mg PEG TID [facility] Last Admin: 05/06/16 13:35 Dose: 100 mg - Labs Labs: 05/05/16 07:57 05/05/16 07:57 PT 10.6 SECONDS (9.7-12.2) 11/24/15 14:10 INR 1.0 11/24/15 14:10 APTT 25 SECONDS (21-34) 11/24/15 14:10 Attending/Attestation - Attestation I have personally seen and examined this patient.: Yes I have fully participated in the care of the patient.: Yes I have reviewed all pertinent clinical information, including history, physical exam and plan: Yes
[2016-05-06] MEDS: Lactobacillus Acidophilus 500 MU Cap PEG SCH ×2 (10:24→18:56)
[2016-05-06] MEDS: Phenytoin 100 mg/4 ml Oral Susp UD PEG SCH ×3 (10:24→18:56)
[2016-05-06] MEDS: Enoxaparin 40 mg Syringe SC SCH (10:25)
[2016-05-07] MEDS: Enoxaparin 40 mg Syringe SC SCH (10:43)
[2016-05-07] MEDS: Lactobacillus Acidophilus 500 MU Cap PEG SCH ×2 (10:43→17:39)
[2016-05-07] MEDS: Phenytoin 100 mg/4 ml Oral Susp UD PEG SCH ×3 (10:43→17:39)
--- NOTE | 2016-05-07 11:08 | CP.PCM.PN ---
<Joel Lin H - Last Filed: 05/07/16 14:26> Subjective - Date & Time of Evaluation Date of Evaluation: 05/07/16 Time of Evaluation: 08:40 - Subjective Subjective: Patient seen at bedside. He is non verbal with some spontaneous opening of his eyes. Objective - Vital Signs/Intake and Output Vital Signs (last 24 hours): Temp Pulse Resp BP Pulse Ox 97.8 F 88 20 125/78 96 05/07/16 08:00 05/07/16 08:00 05/07/16 08:00 05/07/16 08:00 05/07/16 08:00 Intake and Output: 05/07/16 05/07/16 06:59 18:59 Intake Total 550 650 Output Total 1000 Balance -450 650 - Medications Medications: Current Medications Aspirin (Aspirin Chewable) 81 mg PEG DAILY [facility] Last Admin: 05/07/16 10:43 Dose: 81 mg Clopidogrel Bisulfate (Plavix) 75 mg PEG DAILY [facility] Last Admin: 05/07/16 10:43 Dose: 75 mg Enoxaparin Sodium (Lovenox) 40 mg SC DAILY [facility] Last Admin: 05/07/16 10:43 Dose: 40 mg Famotidine (Pepcid) 20 mg PEG BID [facility] Last Admin: 05/07/16 10:43 Dose: 20 mg Lactobacillus Acidophilus (Bacid Acidophilus) 1 cap PEG BID [facility] Last Admin: 05/07/16 10:43 Dose: 1 cap Lisinopril (Zestril) 5 mg PEG DAILY [facility] Last Admin: 05/07/16 10:43 Dose: 5 mg Mupirocin (Bactroban Ointment) 1 gm TOP DAILY [facility] Last Admin: 05/07/16 10:44 Dose: 1 applic Oxybutynin Chloride (Ditropan Tab) 5 mg PEG TID [facility] Last Admin: 05/07/16 10:43 Dose: 5 mg Phenytoin (Dilantin) 100 mg PEG TID [facility] Last Admin: 05/07/16 10:43 Dose: 100 mg - Labs Labs: 05/05/16 07:57 05/05/16 07:57 PT 10.6 SECONDS (9.7-12.2) 11/24/15 14:10 INR 1.0 11/24/15 14:10 APTT 25 SECONDS (21-34) 11/24/15 14:10 - Constitutional Appears: Chronically Ill - Head Exam Head Exam: ATRAUMATIC, NORMAL INSPECTION, NORMOCEPHALIC - Eye Exam Eye Exam: Normal appearance, PERRL Pupil Exam: NORMAL ACCOMODATION - Respiratory Exam Respiratory Exam: Clear to Ausculation Bilateral. absent: Rhonchi, Wheezes - Cardiovascular Exam Cardiovascular Exam: REGULAR RHYTHM, RRR, +S1, +S2. absent: Gallop, Rubs - GI/Abdominal Exam GI & Abdominal Exam: Soft, Normal Bowel Sounds Assessment and Plan - Assessment and Plan (Free Text) Assessment: (1) Anoxic encephalopathy 05/07/2016 No acute changes overnight per nursing staff, peg tube in place, tolerating feedings. Previous note: No acute changes in mental status PEG tube operational, continue tube feedings. Labs on Mondays and . CBC from 05/05 wnl. PEG tube placed at bedside by Dr. Chan on 11/27/15 Pending placement (2) Respiratory Failure 05/07/2016 continue trag care, trach some white secretions noted. Previous note: Cont Trach care ID on case - Dr. Armstrong Sputum culture 12/06 + pseudomonas: probably colonization. No antibiotics per Dr. Armstrong tracheostomy with tube change by Dr. Chan on 11/27/15 (3) UTI 05/07/2016 Urine is clear in baker bag, no fever or luekocytosis noted. Previous note: Afebrile, leukocytosis resolved. Patient had Cipro 400mg IV q12h for total of 7 days Urine cultures POSITIVE Pseudomonas and E. faecalis. Ditropan 5mg PEG TID for leakage around catheter. Continue to monitor vital signs and wbc count (4) CAD (coronary artery disease) Cardiac stents on 06/13/15. Continue Lisinopril 5mg PEG daily Continue Plavix 75mg PEG daily Continue ASA 325mg PEG daily (5) Seizures Continue Dilantin 100mg PEG TID Seizure precautions. (6) Bed sore Healed. continue wound care as needed, [facility], and [facility] Sacral ulcer Stage II 0.5cm x 1.5cm- Healed. Continue repositioning of patient q2H. dolphin mattress. Heel air boots. (7) Prophylactic measure Lovenox 40 SC daily Pepcid 20 mg PEG BID <Rashel Rodrigues - Last Filed: 05/07/16 16:43> Objective - Vital Signs/Intake and Output Vital Signs (last 24 hours): Temp Pulse Resp BP Pulse Ox 98.3 F 74 22 130/77 99 05/07/16 16:07 05/07/16 16:07 05/07/16 16:07 05/07/16 16:07 05/07/16 16:07 Intake and Output: 05/07/16 05/07/16 06:59 18:59 Intake Total 550 1450 Output Total 1000 300 Balance -450 1150 - Medications Medications: Current Medications Aspirin (Aspirin Chewable) 81 mg PEG DAILY [facility] Last Admin: 05/07/16 10:43 Dose: 81 mg Clopidogrel Bisulfate (Plavix) 75 mg PEG DAILY [facility] Last Admin: 05/07/16 10:43 Dose: 75 mg Enoxaparin Sodium (Lovenox) 40 mg SC DAILY [facility] Last Admin: 05/07/16 10:43 Dose: 40 mg Famotidine (Pepcid) 20 mg PEG BID [facility] Last Admin: 05/07/16 10:43 Dose: 20 mg Lactobacillus Acidophilus (Bacid Acidophilus) 1 cap PEG BID [facility] Last Admin: 05/07/16 10:43 Dose: 1 cap Lisinopril (Zestril) 5 mg PEG DAILY [facility] Last Admin: 05/07/16 10:43 Dose: 5 mg Mupirocin (Bactroban Ointment) 1 gm TOP DAILY [facility] Last Admin: 05/07/16 10:44 Dose: 1 applic Oxybutynin Chloride (Ditropan Tab) 5 mg PEG TID [facility] Last Admin: 05/07/16 14:16 Dose: 5 mg Phenytoin (Dilantin) 100 mg PEG TID [facility] Last Admin: 05/07/16 14:16 Dose: 100 mg - Labs Labs: 05/05/16 07:57 05/05/16 07:57 PT 10.6 SECONDS (9.7-12.2) 11/24/15 14:10 INR 1.0 11/24/15 14:10 APTT 25 SECONDS (21-34) 11/24/15 14:10 Attending/Attestation - Attestation I have personally seen and examined this patient.: Yes I have fully participated in the care of the patient.: Yes I have reviewed all pertinent clinical information, including history, physical exam and plan: Yes
[2016-05-08 07:46] LABS: BASO % 0.5 % (0.0-2.0); EOS # 0.5 K/uL (0.0-0.7); EOS % 6.7 % (0.0-4.0); LYMPH # 1.9 K/uL (1.0-4.3); LYMPH % 24.5 % (20.0-40.0); MEAN CORPUSCULAR HEMOGLOBIN 31.3 pg (27.0-31.0); MEAN CORPUSCULAR HGB CONC 33.2 g/dL (33.0-37.0); MEAN PLATELET VOLUME 8.4 fL (7.2-11.7); MONO # 0.9 K/uL (0.0-0.8); MONO % 11.9 % (0.0-10.0); NEUT # 4.5 K/uL (1.8-7.0); NEUT % 56.4 % (50.0-75.0); RBC 3.84 Mil/uL (4.40-5.90); RED CELL DISTRIBUTION WIDTH 14.7 % (11.5-14.5); WHITE BLOOD COUNT 7.9 K/uL (4.8-10.8)
--- NOTE | 2016-05-08 08:22 | CP.PCM.PN ---
<Rashel Rodrigues - Last Filed: 05/08/16 16:16> Objective - Vital Signs/Intake and Output Vital Signs (last 24 hours): Temp Pulse Resp BP Pulse Ox 98.4 F 84 20 122/84 99 05/08/16 07:14 05/08/16 07:14 05/08/16 07:14 05/08/16 07:14 05/08/16 07:14 Intake and Output: 05/08/16 05/08/16 06:59 18:59 Intake Total 1450 750 Output Total 1700 750 Balance -250 0 - Medications Medications: Current Medications Aspirin (Aspirin Chewable) 81 mg PEG DAILY [facility] Last Admin: 05/08/16 11:08 Dose: 81 mg Clopidogrel Bisulfate (Plavix) 75 mg PEG DAILY [facility] Last Admin: 05/08/16 11:08 Dose: 75 mg Enoxaparin Sodium (Lovenox) 40 mg SC DAILY [facility] Last Admin: 05/08/16 11:07 Dose: 40 mg Famotidine (Pepcid) 20 mg PEG BID [facility] Last Admin: 05/08/16 11:08 Dose: 20 mg Heparin Sodium (Porcine) (Heparin) 5,000 units SC Q8 [facility] Lactobacillus Acidophilus (Bacid Acidophilus) 1 cap PEG BID [facility] Last Admin: 05/08/16 11:09 Dose: 1 cap Lisinopril (Zestril) 5 mg PEG DAILY [facility] Last Admin: 05/08/16 11:09 Dose: 5 mg Mupirocin (Bactroban Ointment) 1 gm TOP DAILY [facility] Last Admin: 05/08/16 11:10 Dose: 1 applic Oxybutynin Chloride (Ditropan Tab) 5 mg PEG TID [facility] Last Admin: 05/08/16 14:22 Dose: 5 mg Phenytoin (Dilantin) 100 mg PEG TID [facility] Last Admin: 05/08/16 14:22 Dose: 100 mg - Labs Labs: 05/08/16 07:12 05/05/16 07:57 PT 10.6 SECONDS (9.7-12.2) 11/24/15 14:10 INR 1.0 11/24/15 14:10 APTT 25 SECONDS (21-34) 11/24/15 14:10 Attending/Attestation - Attestation I have personally seen and examined this patient.: Yes I have fully participated in the care of the patient.: Yes I have reviewed all pertinent clinical information, including history, physical exam and plan: Yes Notes (Text): 05/08/16 16:17 Patient was seen and examined during the round with the resident. no new events I was called by CM in charge to attend the family meeting,including both legal team from pt side and from hospital, . Pt's and daughter were in the room. I was asked about the current condition of the pt and explained at length, answered all questions by legal team. Also told them to contact Neurologist if any further detail questions or concerns. cont current supportive management. Awaiting DC placement. <Joel Lin H - Last Filed: 05/09/16 07:43> Subjective - Date & Time of Evaluation Date of Evaluation: 05/08/16 Time of Evaluation: 09:00 - Subjective Subjective: Patient seen at bedside. He is nonverbal, opening his eyes spontaneously. No change in mental status, no acute events overnight per nursing staff. Objective - Vital Signs/Intake and Output Vital Signs (last 24 hours): Temp Pulse Resp BP Pulse Ox 98.4 F 84 20 122/84 99 05/08/16 07:14 05/08/16 07:14 05/08/16 07:14 05/08/16 07:14 05/08/16 07:14 Intake and Output: 05/08/16 05/08/16 06:59 18:59 Intake Total 1450 Output Total 1700 Balance -250 - Medications Medications: Current Medications Aspirin (Aspirin Chewable) 81 mg PEG DAILY [facility] Last Admin: 05/07/16 10:43 Dose: 81 mg Clopidogrel Bisulfate (Plavix) 75 mg PEG DAILY [facility] Last Admin: 05/07/16 10:43 Dose: 75 mg Enoxaparin Sodium (Lovenox) 40 mg SC DAILY [facility] Last Admin: 05/07/16 10:43 Dose: 40 mg Famotidine (Pepcid) 20 mg PEG BID [facility] Last Admin: 05/07/16 17:39 Dose: 20 mg Lactobacillus Acidophilus (Bacid Acidophilus) 1 cap PEG BID [facility] Last Admin: 05/07/16 17:39 Dose: 1 cap Lisinopril (Zestril) 5 mg PEG DAILY [facility] Last Admin: 05/07/16 10:43 Dose: 5 mg Mupirocin (Bactroban Ointment) 1 gm TOP DAILY [facility] Last Admin: 05/07/16 10:44 Dose: 1 applic Oxybutynin Chloride (Ditropan Tab) 5 mg PEG TID [facility] Last Admin: 05/07/16 17:39 Dose: 5 mg Phenytoin (Dilantin) 100 mg PEG TID [facility] Last Admin: 05/07/16 17:39 Dose: 100 mg - Labs Labs: 05/08/16 07:12 05/05/16 07:57 PT 10.6 SECONDS (9.7-12.2) 11/24/15 14:10 INR 1.0 11/24/15 14:10 APTT 25 SECONDS (21-34) 11/24/15 14:10 - Constitutional Appears: Other - Head Exam Head Exam: ATRAUMATIC, NORMAL INSPECTION, NORMOCEPHALIC - Eye Exam Eye Exam: Normal appearance Pupil Exam: NORMAL ACCOMODATION - ENT Exam ENT Exam: Normal Exam - Neck Exam Neck Exam: Normal Inspection - Respiratory Exam Respiratory Exam: Clear to Ausculation Bilateral. absent: Rales, Rhonchi, Wheezes - Cardiovascular Exam Cardiovascular Exam: REGULAR RHYTHM, RRR, +S1, +S2. absent: Gallop, Rubs - GI/Abdominal Exam GI & Abdominal Exam: Soft, Normal Bowel Sounds. absent: Guarding, Tenderness, Rebound - Extremities Exam Extremities Exam: Normal Inspection - Back Exam Back Exam: NORMAL INSPECTION - Skin Skin Exam: Dry, Warm Assessment and Plan - Assessment and Plan (Free Text) Assessment: (1) Anoxic encephalopathy 05/08: No acute events overnight. peg tube in place, tolerating feedings. 05/07/2016 No acute changes overnight per nursing staff, peg tube in place, tolerating feedings. Previous note: No acute changes in mental status PEG tube operational, continue tube feedings. Labs on Mondays and . CBC from 05/05 wnl. PEG tube placed at bedside by Dr. Chan on 11/27/15 Pending placement (2) Respiratory Failure 05/08: trach collar in place, some white secretions, trach care to continue 05/07/2016 continue trag care, trach some white secretions noted. Previous note: Cont Trach care ID on case - Dr. Armstrong Sputum culture 12/06 + pseudomonas: probably colonization. No antibiotics per Dr. Armstrong tracheostomy with tube change by Dr. Chan on 11/27/15 (3) UTI 05/08: Urine is clear in baker bag, no fever 05/07/2016 Urine is clear in baker bag, no fever or luekocytosis noted. Previous note: Afebrile, leukocytosis resolved. Patient had Cipro 400mg IV q12h for total of 7 days Urine cultures POSITIVE Pseudomonas and E. faecalis. Ditropan 5mg PEG TID for leakage around catheter. Continue to monitor vital signs and wbc count (4) CAD (coronary artery disease) Cardiac stents on 06/13/15. Continue Lisinopril 5mg PEG daily Continue Plavix 75mg PEG daily Continue ASA 325mg PEG daily (5) Seizures 05/08: No seizure activity, continue Dilantin 100mg via PEG tube. Continue Dilantin 100mg PEG TID Seizure precautions. (6) Bed sore 05/08: Healed, continue wound care and repositioning q2h. Previous note: Healed. continue wound care as needed, sensicare, and mediney Sacral ulcer Stage II 0.5cm x 1.5cm- Healed. Continue repositioning of patient q2H. dolphin mattress. Heel air boots. (7) Prophylactic measure Lovenox 40 SC daily Pepcid 20 mg PEG BID
[2016-05-08] MEDS: Enoxaparin 40 mg Syringe SC SCH (11:07)
[2016-05-08] MEDS: Phenytoin 100 mg/4 ml Oral Susp UD PEG SCH ×3 (11:07→17:20)
[2016-05-08] MEDS: Lactobacillus Acidophilus 500 MU Cap PEG SCH ×2 (11:09→17:21)
--- NOTE | 2016-05-09 08:16 | CP.PCM.PN ---
<Rashel Rodrigues - Last Filed: 05/09/16 17:20> Objective - Vital Signs/Intake and Output Vital Signs (last 24 hours): Temp Pulse Resp BP Pulse Ox 98.3 F 71 20 145/89 100 05/09/16 16:36 05/09/16 16:36 05/09/16 16:36 05/09/16 16:36 05/09/16 16:36 Intake and Output: 05/09/16 05/09/16 06:59 18:59 Intake Total 1350 650 Output Total 900 300 Balance 450 350 - Medications Medications: Current Medications Aspirin (Aspirin Chewable) 81 mg PEG DAILY [facility] Last Admin: 05/09/16 11:32 Dose: 81 mg Clopidogrel Bisulfate (Plavix) 75 mg PEG DAILY [facility] Last Admin: 05/09/16 11:45 Dose: 75 mg Famotidine (Pepcid) 20 mg PEG BID [facility] Last Admin: 05/09/16 11:33 Dose: 20 mg Heparin Sodium (Porcine) (Heparin) 5,000 units SC Q8 [facility] Last Admin: 05/09/16 15:10 Dose: 5,000 units Lactobacillus Acidophilus (Bacid Acidophilus) 1 cap PEG BID [facility] Last Admin: 05/09/16 11:33 Dose: 1 cap Lisinopril (Zestril) 5 mg PEG DAILY [facility] Last Admin: 05/09/16 11:33 Dose: 5 mg Mupirocin (Bactroban Ointment) 1 gm TOP DAILY [facility] Last Admin: 05/09/16 11:33 Dose: 1 applic Oxybutynin Chloride (Ditropan Tab) 5 mg PEG TID [facility] Last Admin: 05/09/16 15:12 Dose: 5 mg Phenytoin (Dilantin) 100 mg PEG TID [facility] Last Admin: 05/09/16 15:09 Dose: 100 mg - Labs Labs: 05/08/16 07:12 05/05/16 07:57 PT 10.6 SECONDS (9.7-12.2) 11/24/15 14:10 INR 1.0 11/24/15 14:10 APTT 25 SECONDS (21-34) 11/24/15 14:10 Attending/Attestation - Attestation I have personally seen and examined this patient.: Yes I have fully participated in the care of the patient.: Yes I have reviewed all pertinent clinical information, including history, physical exam and plan: Yes <Joel Lin - Last Filed: 05/09/16 18:28> Subjective - Date & Time of Evaluation Date of Evaluation: 05/09/16 Time of Evaluation: 08:00 - Subjective Subjective: Patient seen at bedside with medical attending Dr. Rodrigues. No change in mental status, he is still non verbal. No acute changes overnight per nursing staff. Family asked about a small linear abrasion on the patient's chest. Spoke to them that it is most likely from wrist bands. Objective - Vital Signs/Intake and Output Vital Signs (last 24 hours): Temp Pulse Resp BP Pulse Ox 98.1 F 78 20 107/74 98 05/08/16 23:48 05/08/16 23:48 05/08/16 23:48 05/08/16 23:48 05/08/16 23:48 Intake and Output: 05/09/16 05/09/16 06:59 18:59 Intake Total 1350 Output Total 900 Balance 450 - Medications Medications: Current Medications Aspirin (Aspirin Chewable) 81 mg PEG DAILY [facility] Last Admin: 05/08/16 11:08 Dose: 81 mg Clopidogrel Bisulfate (Plavix) 75 mg PEG DAILY [facility] Last Admin: 05/08/16 11:08 Dose: 75 mg Enoxaparin Sodium (Lovenox) 40 mg SC DAILY [facility] Last Admin: 05/08/16 11:07 Dose: 40 mg Famotidine (Pepcid) 20 mg PEG BID [facility] Last Admin: 05/08/16 17:21 Dose: 20 mg Heparin Sodium (Porcine) (Heparin) 5,000 units SC Q8 [facility] Last Admin: 05/08/16 22:14 Dose: 5,000 units Lactobacillus Acidophilus (Bacid Acidophilus) 1 cap PEG BID [facility] Last Admin: 05/08/16 17:21 Dose: 1 cap Lisinopril (Zestril) 5 mg PEG DAILY [facility] Last Admin: 05/08/16 11:09 Dose: 5 mg Mupirocin (Bactroban Ointment) 1 gm TOP DAILY [facility] Last Admin: 05/08/16 11:10 Dose: 1 applic Oxybutynin Chloride (Ditropan Tab) 5 mg PEG TID [facility] Last Admin: 05/08/16 17:21 Dose: 5 mg Phenytoin (Dilantin) 100 mg PEG TID [facility] Last Admin: 05/08/16 17:20 Dose: 100 mg - Labs Labs: 05/08/16 07:12 05/05/16 07:57 PT 10.6 SECONDS (9.7-12.2) 11/24/15 14:10 INR 1.0 11/24/15 14:10 APTT 25 SECONDS (21-34) 11/24/15 14:10 - Constitutional Appears: Chronically Ill - Head Exam Head Exam: NORMAL INSPECTION - Eye Exam Eye Exam: Normal appearance Pupil Exam: NORMAL ACCOMODATION - ENT Exam Additional comments: Trach collar in place, some secretions noted. - Respiratory Exam Respiratory Exam: Clear to Ausculation Bilateral. absent: Rales, Rhonchi, Wheezes Additional comments: small linear abrasion on the chest about 2 centimeters in lenght. - Cardiovascular Exam Cardiovascular Exam: REGULAR RHYTHM, RRR, +S1, +S2. absent: Gallop, Rubs - GI/Abdominal Exam GI & Abdominal Exam: Soft, Normal Bowel Sounds - Skin Skin Exam: Dry Assessment and Plan - Assessment and Plan (Free Text) Assessment: (1) Anoxic encephalopathy 05/09: No changes in mental status, trach collar in place, peg tube in place. 05/08: No acute events overnight. peg tube in place, tolerating feedings. 05/07/2016 No acute changes overnight per nursing staff, peg tube in place, tolerating feedings. Previous note: No acute changes in mental status PEG tube operational, continue tube feedings. Labs on Mondays and . CBC from 05/05 wnl. PEG tube placed at bedside by Dr. Chan on 11/27/15 Pending placement (2) Respiratory Failure 05/09: Trach collar in place, continue trach care. 05/08: trach collar in place, some white secretions, trach care to continue 05/07/2016 continue trag care, trach some white secretions noted. Previous note: Cont Trach care ID on case - Dr. Armstrong Sputum culture 12/06 + pseudomonas: probably colonization. No antibiotics per Dr. Armstrong tracheostomy with tube change by Dr. Chan on 11/27/15 (3) UTI 05/09: Resolved 05/08: Urine is clear in baker bag, no fever 05/07/2016 Urine is clear in baker bag, no fever or luekocytosis noted. Previous note: Afebrile, leukocytosis resolved. Patient had Cipro 400mg IV q12h for total of 7 days Urine cultures POSITIVE Pseudomonas and E. faecalis. Ditropan 5mg PEG TID for leakage around catheter. Continue to monitor vital signs and wbc count (4) CAD (coronary artery disease) Cardiac stents on 06/13/15. Continue Lisinopril 5mg PEG daily Continue Plavix 75mg PEG daily Continue ASA 325mg PEG daily (5) Seizures 05/08: No seizure activity, continue Dilantin 100mg via PEG tube. Continue Dilantin 100mg PEG TID Seizure precautions. (6) Bed sore 05/08: Healed, continue wound care and repositioning q2h. Previous note: Healed. continue wound care as needed, sensicare, and medihoney Sacral ulcer Stage II 0.5cm x 1.5cm- Healed. Continue repositioning of patient q2H. dolphin mattress. Heel air boots. (7) Prophylactic measure Lovenox 40 SC daily Pepcid 20 mg PEG BID
[2016-05-09] MEDS: Phenytoin 100 mg/4 ml Oral Susp UD PEG SCH ×3 (11:32→17:55)
[2016-05-09] MEDS: Enoxaparin 40 mg Syringe SC SCH (11:32)
[2016-05-09] MEDS: Lactobacillus Acidophilus 500 MU Cap PEG SCH ×2 (11:33→17:56)
--- NOTE | 2016-05-10 00:12 | CP.PCM.PN ---
"<JessicaHoward - Last Filed: 05/10/16 03:12> Subjective - Date & Time of Evaluation Date of Evaluation: 05/10/16 Time of Evaluation: 00:12 - Subjective Subjective: PGY1 Medicine Progress Note | Dr. Piper Rodrigues's Service Patient seen and examined at bedside this morning. At the time of exam, the patient was in bed in NAD. Clinical status unchanged. Patient was unresponsive to verbal/tactile/painful stimuli, ROS unobtainable. Notified by RN that there is a small laceration on his abdomen. Objective - Vital Signs/Intake and Output Vital Signs (last 24 hours): Temp Pulse Resp BP Pulse Ox 98.3 F 71 20 145/89 100 05/09/16 16:36 05/09/16 16:36 05/09/16 16:36 05/09/16 16:36 05/09/16 16:36 Intake and Output: 05/09/16 05/10/16 18:59 06:59 Intake Total 650 680 Output Total 300 1000 Balance 350 -320 - Medications Medications: Current Medications Aspirin (Aspirin Chewable) 81 mg PEG DAILY [facility] Last Admin: 05/09/16 11:32 Dose: 81 mg Heparin Sodium (Porcine) (Heparin) 5,000 units SC Q8 [facility] Last Admin: 05/09/16 22:11 Dose: 5,000 units Lactobacillus Acidophilus (Bacid Acidophilus) 1 cap PEG BID [facility] Last Admin: 05/09/16 17:56 Dose: 1 cap - Labs Labs: 05/08/16 07:12 05/05/16 07:57 PT 10.6 SECONDS (9.7-12.2) 11/24/15 14:10 INR 1.0 11/24/15 14:10 APTT 25 SECONDS (21-34) 11/24/15 14:10 - Additional Findings Additional findings: - Constitutional Appears: No Acute Distress, Chronically Ill - Head Exam Head Exam: ATRAUMATIC, NORMOCEPHALIC - ENT Exam ENT Exam: Mucous Membranes Dry Additional comments: trach collar in place, no secretions/blood observed in tubing. - Respiratory Exam Respiratory Exam: Decreased Breath Sounds, NORMAL BREATHING PATTERN. absent: Rales, Rhonchi, Wheezes - Cardiovascular Exam Cardiovascular Exam: REGULAR RHYTHM, +S1, +S2. absent: Gallop, Rubs, Murmur - GI/Abdominal Exam GI & Abdominal Exam: Soft, Normal Bowel Sounds. absent: Distended, Guarding, Rebound Additional comments: PEG tube in place, no erythema, discharge appreciated. Tube feed running not running at the time of exam. - Back Exam Additional comments: no open sacral wounds appreciated. no drainage appreciated - Neurological Exam Neurological Exam: Altered - Skin Skin Exam: Dry, Warm Additional comments: small 2-3cm laceration x2 on R side of abdomen with dried blood. hemostasis. Assessment and Plan - Assessment and Plan (Free Text) Assessment: (1) Anoxic encephalopathy 05/10/16: No acute changes in mental status PEG tube operational, continue tube feedings. Labs on Mondays and . CBC from 05/05 wnl. PEG tube placed at bedside by Dr. Chan on 11/27/15 Pending placement (2) Respiratory Failure Cont Trach care ID on case - Dr. Armstrong Sputum culture 12/06 + pseudomonas: probably colonization. No antibiotics per Dr. Armstrong tracheostomy with tube change by Dr. Chan on 11/27/15 (3) UTI Afebrile, leukocytosis resolved. Patient had Cipro 400mg IV q12h for total of 7 days Urine cultures POSITIVE Pseudomonas and E. faecalis. Ditropan 5mg PEG TID for leakage around catheter. Continue to monitor vital signs and wbc count (4) CAD (coronary artery disease) Cardiac stents on 06/13/15. Continue Lisinopril 5mg PEG daily Continue Plavix 75mg PEG daily Continue ASA 325mg PEG daily (5) Seizures Continue Dilantin 100mg PEG TID Seizure precautions. (6) Bed sore Healed. continue wound care as needed, sensicare, and medihoney Sacral ulcer Stage II 0.5cm x 1.5cm- Healed. Continue repositioning of patient q2H. dolphin mattress. Heel air boots. (7) Prophylactic measure Lovenox 40 SC daily Pepcid 20 mg PEG BID <Rashel Rodrigues - Last Filed: 05/10/16 11:04> Objective - Vital Signs/Intake and Output Vital Signs (last 24 hours): Temp Pulse Resp BP Pulse Ox 98.5 F 81 20 116/76 99 05/10/16 00:00 05/10/16 00:00 05/10/16 00:00 05/10/16 00:00 05/10/16 00:00 Intake and Output: 05/10/16 05/10/16 06:59 18:59 Intake Total 1230 Output Total 1600 Balance -370 - Medications Medications: Current Medications Aspirin (Aspirin Chewable) 81 mg PEG DAILY [facility] Last Admin: 05/10/16 09:44 Dose: 81 mg Clopidogrel Bisulfate (Plavix) 75 mg PEG DAILY [facility] Last Admin: 05/10/16 09:44 Dose: 75 mg Famotidine (Pepcid) 20 mg PEG BID [facility] Last Admin: 05/10/16 09:44 Dose: 20 mg Heparin Sodium (Porcine) (Heparin) 5,000 units SC Q8 [facility] Last Admin: 05/10/16 05:17 Dose: 5,000 units Lactobacillus Acidophilus (Bacid Acidophilus) 1 cap PEG BID [facility] Last Admin: 05/10/16 10:26 Dose: 1 cap Mupirocin (Bactroban Ointment) 0 gm TOP DAILY [facility] Last Admin: 05/10/16 09:59 Dose: 1 applic Oxybutynin Chloride (Ditropan Tab) 5 mg PEG TID [facility] Last Admin: 05/10/16 09:44 Dose: 5 mg Phenytoin (Dilantin) 100 mg PEG TID [facility] Last Admin: 05/10/16 09:44 Dose: 100 mg - Labs Labs: 05/08/16 07:12 05/05/16 07:57 PT 10.6 SECONDS (9.7-12.2) 11/24/15 14:10 INR 1.0 11/24/15 14:10 APTT 25 SECONDS (21-34) 11/24/15 14:10 Attending/Attestation - Attestation I have personally seen and examined this patient.: Yes I have fully participated in the care of the patient.: Yes I have reviewed all pertinent clinical information, including history, physical exam and plan: Yes"
[2016-05-10] MEDS: Phenytoin 100 mg/4 ml Oral Susp UD PEG SCH ×3 (09:44→17:44)
[2016-05-10] MEDS: Lactobacillus Acidophilus 500 MU Cap PEG SCH ×2 (10:26→17:48)
--- NOTE | 2016-05-11 00:29 | CP.PCM.PN ---
"<Howard Lopez - Last Filed: 05/11/16 03:41> Subjective - Date & Time of Evaluation Date of Evaluation: 05/11/16 Time of Evaluation: 00:29 - Subjective Subjective: PGY1 Medicine Progress Note | Dr. Piper Rodrigues's Service Patient seen and examined at bedside this morning. At the time of exam, the patient was asleep in bed in NAD. No change in clinical status. Patient was unresponsive to verbal/tactile/painful stimuli, ROS again unobtainable. Objective - Vital Signs/Intake and Output Vital Signs (last 24 hours): Temp Pulse Resp BP Pulse Ox 98.5 F 84 20 92/62 L 98 05/10/16 23:24 05/10/16 23:24 05/10/16 23:24 05/10/16 23:24 05/10/16 23:24 Intake and Output: 05/10/16 05/11/16 18:59 06:59 Intake Total 750 680 Output Total 500 2000 Balance 250 -1320 - Medications Medications: Current Medications Aspirin (Aspirin Chewable) 81 mg PEG DAILY [facility] Last Admin: 05/10/16 09:44 Dose: 81 mg Clopidogrel Bisulfate (Plavix) 75 mg PEG DAILY [facility] Last Admin: 05/10/16 09:44 Dose: 75 mg Famotidine (Pepcid) 20 mg PEG BID [facility] Last Admin: 05/10/16 17:44 Dose: 20 mg Heparin Sodium (Porcine) (Heparin) 5,000 units SC Q8 [facility] Last Admin: 05/10/16 22:35 Dose: 5,000 units Lactobacillus Acidophilus (Bacid Acidophilus) 1 cap PEG BID [facility] Last Admin: 05/10/16 17:48 Dose: 1 cap Mupirocin (Bactroban Ointment) 0 gm TOP DAILY [facility] Last Admin: 05/10/16 09:59 Dose: 1 applic Oxybutynin Chloride (Ditropan Tab) 5 mg PEG TID [facility] Last Admin: 05/10/16 17:44 Dose: 5 mg Phenytoin (Dilantin) 100 mg PEG TID [facility] Last Admin: 05/10/16 17:44 Dose: 100 mg - Labs Labs: 05/08/16 07:12 05/05/16 07:57 PT 10.6 SECONDS (9.7-12.2) 01/02/16 14:10 INR 1.0 11/24/15 14:10 APTT 25 SECONDS (21-34) 11/24/15 14:10 - Additional Findings Additional findings: - Constitutional Appears: No Acute Distress, Chronically Ill - Head Exam Head Exam: ATRAUMATIC, NORMOCEPHALIC - ENT Exam ENT Exam: Mucous Membranes Dry Additional comments: trach collar in place, no secretions/blood observed in tubing. - Respiratory Exam Respiratory Exam: Decreased Breath Sounds, NORMAL BREATHING PATTERN. absent: Rales, Rhonchi, Wheezes - Cardiovascular Exam Cardiovascular Exam: REGULAR RHYTHM, +S1, +S2. absent: Gallop, Rubs, Murmur - GI/Abdominal Exam GI & Abdominal Exam: Soft, Normal Bowel Sounds. absent: Distended, Guarding, Rebound Additional comments: PEG tube in place, no erythema, discharge appreciated. Tube feed running not running at the time of exam. - Back Exam Additional comments: no open sacral wounds appreciated. no drainage appreciated - Neurological Exam Neurological Exam: Altered - Skin Skin Exam: Dry, Warm Assessment and Plan - Assessment and Plan (Free Text) Assessment: (1) Anoxic encephalopathy 05/11/16: No acute changes in mental status PEG tube operational, continue tube feedings. Labs on Mondays and . CBC from 05/05 wnl. PEG tube placed at bedside by Dr. Chan on 11/27/15 Pending placement (2) Respiratory Failure Cont Trach care ID on case - Dr. Armstrong Sputum culture 12/06 + pseudomonas: probably colonization. No antibiotics per Dr. Armstrong tracheostomy with tube change by Dr. Chan on 11/27/15 (3) UTI Afebrile, leukocytosis resolved. Patient had Cipro 400mg IV q12h for total of 7 days Urine cultures POSITIVE Pseudomonas and E. faecalis. Ditropan 5mg PEG TID for leakage around catheter. Continue to monitor vital signs and wbc count (4) CAD (coronary artery disease) Cardiac stents on 06/13/15. Continue Lisinopril 5mg PEG daily Continue Plavix 75mg PEG daily Continue ASA 325mg PEG daily (5) Seizures Continue Dilantin 100mg PEG TID Seizure precautions. (6) Bed sore Healed. continue wound care as needed, [facility], and [facility] Sacral ulcer Stage II 0.5cm x 1.5cm- Healed. Continue repositioning of patient q2H. dolphin mattress. Heel air boots. (7) Prophylactic measure Lovenox 40 SC daily Pepcid 20 mg PEG BID <Wendi Mercedes R - Last Filed: 05/11/16 13:31> Subjective - Date & Time of Evaluation Date of Evaluation: 05/11/16 Objective - Vital Signs/Intake and Output Vital Signs (last 24 hours): Temp Pulse Resp BP Pulse Ox 98.4 F 71 20 123/84 97 05/11/16 08:00 05/11/16 08:00 05/11/16 08:00 05/11/16 08:00 05/11/16 08:00 Intake and Output: 05/11/16 05/11/16 06:59 18:59 Intake Total 680 650 Output Total 2600 Balance -1920 650 - Medications Medications: Current Medications Aspirin (Aspirin Chewable) 81 mg PEG DAILY [facility] Last Admin: 05/11/16 11:07 Dose: 81 mg Clopidogrel Bisulfate (Plavix) 75 mg PEG DAILY [facility] Last Admin: 05/11/16 11:07 Dose: 75 mg Famotidine (Pepcid) 20 mg PEG BID [facility] Last Admin: 05/11/16 11:06 Dose: 20 mg Heparin Sodium (Porcine) (Heparin) 5,000 units SC Q8 [facility] Last Admin: 05/11/16 06:07 Dose: 5,000 units Lactobacillus Acidophilus (Bacid Acidophilus) 1 cap PEG BID [facility] Last Admin: 05/11/16 11:09 Dose: 1 cap Mupirocin (Bactroban Ointment) 0 gm TOP DAILY [facility] Last Admin: 05/11/16 11:08 Dose: 1 applic Oxybutynin Chloride (Ditropan Tab) 5 mg PEG TID [facility] Last Admin: 05/11/16 11:10 Dose: 5 mg Phenytoin (Dilantin) 100 mg PEG TID [facility] Last Admin: 05/11/16 11:09 Dose: 100 mg - Labs Labs: 05/08/16 07:12 05/05/16 07:57 PT 10.6 SECONDS (9.7-12.2) 11/24/15 14:10 INR 1.0 11/24/15 14:10 APTT 25 SECONDS (21-34) 11/24/15 14:10 - Constitutional Appears: No Acute Distress - Head Exam Head Exam: ATRAUMATIC, NORMOCEPHALIC - Eye Exam Eye Exam: absent: Scleral icterus - ENT Exam ENT Exam: Mucous Membranes Moist - Neck Exam Additional comments: Trach in place - Respiratory Exam Respiratory Exam: NORMAL BREATHING PATTERN. absent: Rales, Rhonchi, Wheezes - Cardiovascular Exam Cardiovascular Exam: REGULAR RHYTHM, +S1, +S2. absent: Gallop, Rubs, Murmur - GI/Abdominal Exam GI & Abdominal Exam: Soft, Normal Bowel Sounds. absent: Distended Additional comments: PEG in place - Extremities Exam Extremities Exam: absent: Pedal Edema Additional comments: Pedal pulses intact - Neurological Exam Additional comments: Patient only opens eyes Patient does not move Patient does not follow commands Patient is a aphasic - Skin Skin Exam: Dry, Warm Assessment and Plan (1) UTI (lower urinary tract infection) Status: Acute (2) Anoxic encephalopathy Status: Acute (3) Respiratory failure Status: Acute (4) CAD (coronary artery disease) Status: Acute (5) Seizures Status: Acute (6) Bed sore Status: Acute (7) Prophylactic measure Status: Acute Attending/Attestation - Attestation I have personally seen and examined this patient.: Yes I have fully participated in the care of the patient.: Yes I have reviewed all pertinent clinical information, including history, physical exam and plan: Yes Notes (Text): Medical Attending Covering: Patient seen and examined by me. Agree with resident HPI/Exam/A&P with appropriate additions and changes. Patient opens eyes. Patient does not follow commands. Patient is nonverbal. Unable to obtain review of systems from patient. Patient is afebrile. Trach and PEG tube in place. Patient status post treatment for UTI. Continue Plavix and aspirin. Continue Dilantin. Reposition patient every 2 hours. Monitor labs and vitals. Replace electrolytes as needed."
[2016-05-11] MEDS: Phenytoin 100 mg/4 ml Oral Susp UD PEG SCH ×3 (11:09→17:23)
[2016-05-11] MEDS: Lactobacillus Acidophilus 500 MU Cap PEG SCH ×2 (11:09→17:24)
[2016-05-12 08:12] LABS: BASO # 0.1 K/uL (0.0-0.2); BASO % 0.7 % (0.0-2.0); EOS # 0.5 K/uL (0.0-0.7); EOS % 6.8 % (0.0-4.0); LYMPH # 2.2 K/uL (1.0-4.3); LYMPH % 27.3 % (20.0-40.0); MEAN CELL VOLUME 94.1 fL (80.0-94.0); MEAN CORPUSCULAR HEMOGLOBIN 31.2 pg (27.0-31.0); MEAN CORPUSCULAR HGB CONC 33.1 g/dL (33.0-37.0); MONO # 0.9 K/uL (0.0-0.8); MONO % 10.9 % (0.0-10.0); NEUT # 4.3 K/uL (1.8-7.0); NEUT % 54.3 % (50.0-75.0); NRBC % 0.1 % (0.0-2.0); RBC 3.86 Mil/uL (4.40-5.90); RED CELL DISTRIBUTION WIDTH 14.4 % (11.5-14.5); WHITE BLOOD COUNT 7.9 K/uL (4.8-10.8)
[2016-05-12] MEDS: Phenytoin 100 mg/4 ml Oral Susp UD PEG SCH ×3 (09:29→17:57)
[2016-05-12] MEDS: Lactobacillus Acidophilus 500 MU Cap PEG SCH ×2 (09:30→17:58)
--- NOTE | 2016-05-12 09:51 | CP.PCM.PN ---
<May Robles - Last Filed: 05/12/16 09:47> Subjective - Date & Time of Evaluation Date of Evaluation: 05/12/16 Time of Evaluation: 09:47 - Subjective Subjective: Patient seen at bedside. No acute events overnight. Patient s/p trach and peg. Opens eyes to touch but no purposeful response. Objective - Vital Signs/Intake and Output Vital Signs (last 24 hours): Temp Pulse Resp BP Pulse Ox 98.5 F 86 20 126/87 99 05/11/16 23:29 05/12/16 01:00 05/11/16 23:29 05/11/16 23:29 05/11/16 23:29 Intake and Output: 05/12/16 05/12/16 06:59 18:59 Intake Total 650 Output Total 1700 Balance -1050 - Medications Medications: Current Medications Aspirin (Aspirin Chewable) 81 mg PEG DAILY [facility] Last Admin: 05/12/16 09:28 Dose: 81 mg Clopidogrel Bisulfate (Plavix) 75 mg PEG DAILY [facility] Last Admin: 05/12/16 09:29 Dose: 75 mg Famotidine (Pepcid) 20 mg PEG BID [facility] Last Admin: 05/12/16 09:29 Dose: 20 mg Lactobacillus Acidophilus (Bacid Acidophilus) 1 cap PEG BID [facility] Last Admin: 05/12/16 09:30 Dose: 1 cap Mupirocin (Bactroban Ointment) 0 gm TOP DAILY [facility] Last Admin: 05/12/16 09:30 Dose: 1 applic Oxybutynin Chloride (Ditropan Tab) 5 mg PEG TID [facility] Last Admin: 05/12/16 09:29 Dose: 5 mg Phenytoin (Dilantin) 100 mg PEG TID [facility] Last Admin: 05/12/16 09:29 Dose: 100 mg - Labs Labs: 05/12/16 07:57 05/05/16 07:57 PT 10.6 SECONDS (9.7-12.2) 11/24/15 14:10 INR 1.0 11/24/15 14:10 APTT 25 SECONDS (21-34) 11/24/15 14:10 - Constitutional Appears: Chronically Ill - Head Exam Head Exam: ATRAUMATIC, NORMAL INSPECTION - Eye Exam Eye Exam: Normal appearance - ENT Exam ENT Exam: Mucous Membranes Moist - Neck Exam Additional comments: +trach collar. - Respiratory Exam Respiratory Exam: Rhonchi, NORMAL BREATHING PATTERN. absent: Accessory Muscle Use, Rales, Wheezes - Cardiovascular Exam Cardiovascular Exam: REGULAR RHYTHM. absent: Murmur - GI/Abdominal Exam GI & Abdominal Exam: Soft. absent: Tenderness Additional comments: +PEG tub insertion. - Extremities Exam Extremities Exam: absent: Pedal Edema Additional comments: Atrophy lower extremities in boot. - Neurological Exam Neurological Exam: absent: Oriented x3 - Skin Skin Exam: Dry Assessment and Plan - Assessment and Plan (Free Text) Assessment: (1) Anoxic encephalopathy 05/12: no new changes. PEG tube operational, continue tube feedings. Labs on Mondays and . CBC from 05/05 wnl. PEG tube placed at bedside by Dr. Chan on 11/27/15 Pending placement (2) Respiratory Failure Cont Trach care ID on case - Dr. Armstrong Sputum culture 12/06 + pseudomonas: probably colonization. No antibiotics per Dr. Armstrong tracheostomy with tube change by Dr. Chan on 11/27/15 (3) UTI resolved Patient had Cipro 400mg IV q12h for total of 7 days Urine cultures POSITIVE Pseudomonas and E. faecalis. Ditropan 5mg PEG TID for leakage around catheter. Continue to monitor vital signs and wbc count (4) CAD (coronary artery disease) Cardiac stents on 06/13/15. Continue Lisinopril 5mg PEG daily Continue Plavix 75mg PEG daily Continue ASA 325mg PEG daily (5) Seizures Continue Dilantin 100mg PEG TID Seizure precautions. (6) Bed sore Healed. continue wound care as needed, [facility], and [facility] Sacral ulcer Stage II 0.5cm x 1.5cm- Healed. Continue repositioning of patient q2H. dolphin mattress. Heel air boots. (7) Prophylactic measure Lovenox 40 SC daily Pepcid 20 mg PEG BID Plan: Pending placement. <Donnell Ying - Last Filed: 05/12/16 17:23> Objective - Vital Signs/Intake and Output Vital Signs (last 24 hours): Temp Pulse Resp BP Pulse Ox 98.2 F 70 20 130/84 100 05/12/16 15:42 05/12/16 16:16 05/12/16 15:42 05/12/16 15:42 05/12/16 15:42 Intake and Output: 05/12/16 05/12/16 06:59 18:59 Intake Total 650 Output Total 1700 900 Balance -1050 -900 - Medications Medications: Current Medications Aspirin (Aspirin Chewable) 81 mg PEG DAILY [facility] Last Admin: 05/12/16 09:28 Dose: 81 mg Clopidogrel Bisulfate (Plavix) 75 mg PEG DAILY [facility] Last Admin: 05/12/16 09:29 Dose: 75 mg Famotidine (Pepcid) 20 mg PEG BID [facility] Last Admin: 05/12/16 09:29 Dose: 20 mg Heparin Sodium (Porcine) (Heparin) 5,000 units SC Q8 [facility] Last Admin: 05/12/16 13:35 Dose: 5,000 units Lactobacillus Acidophilus (Bacid Acidophilus) 1 cap PEG BID [facility] Last Admin: 05/12/16 09:30 Dose: 1 cap Mupirocin (Bactroban Ointment) 0 gm TOP DAILY [facility] Last Admin: 05/12/16 09:30 Dose: 1 applic Oxybutynin Chloride (Ditropan Tab) 5 mg PEG TID [facility] Last Admin: 05/12/16 13:36 Dose: 5 mg Phenytoin (Dilantin) 100 mg PEG TID [facility] Last Admin: 05/12/16 13:36 Dose: 100 mg - Labs Labs: 05/12/16 07:57 05/12/16 11:20 PT 10.6 SECONDS (9.7-12.2) 11/24/15 14:10 INR 1.0 11/24/15 14:10 APTT 25 SECONDS (21-34) 11/24/15 14:10 Attending/Attestation - Attestation I have personally seen and examined this patient.: Yes I have fully participated in the care of the patient.: Yes I have reviewed all pertinent clinical information, including history, physical exam and plan: Yes Notes (Text): 05/12/16 17:22 Patient seen and examined at bedside No change in clinical condition. Continue local care and off for tracheostomy and PEG site. Continue local care of for healed decubitus ulcer. Awaiting placement.
[2016-05-12 11:40] LABS: ALBUMIN 3.3 g/dL (3.5-5.0)
[2016-05-12 11:42] LABS: GFR NON-AFRICAN AMERICAN > 60
[2016-05-12 11:43] LABS: ALB/GLOB RATIO 0.8 (1.0-2.1); ALT/SGPT 48 U/L (21-72); AST/SGOT 24 U/L (17-59); BLOOD UREA NITROGEN 22 mg/dL (9-20)
[2016-05-12 11:44] LABS: CALCIUM 8.9 mg/dl (8.6-10.4)
[2016-05-13] MEDS: Phenytoin 100 mg/4 ml Oral Susp UD PEG SCH ×3 (09:20→17:22)
[2016-05-13] MEDS: Lactobacillus Acidophilus 500 MU Cap PEG SCH ×2 (09:20→17:22)
--- NOTE | 2016-05-13 13:03 | CP.PCM.PN ---
<Nely Pate - Last Filed: 05/13/16 13:01> Subjective - Date & Time of Evaluation Date of Evaluation: 05/13/16 Time of Evaluation: 10:00 - Subjective Subjective: Patient seen and examined. No acute events overnight. Patient's clinical condition unchanged. ROS could not be obtained. Patient does not appear to be in acute distress. Objective - Vital Signs/Intake and Output Vital Signs (last 24 hours): Temp Pulse Resp BP Pulse Ox 98 F 77 20 136/76 98 05/13/16 07:42 05/13/16 07:42 05/13/16 07:42 05/13/16 07:42 05/13/16 07:42 Intake and Output: 05/13/16 05/13/16 06:59 18:59 Intake Total 1000 Output Total 800 Balance 200 - Medications Medications: Current Medications Aspirin (Aspirin Chewable) 81 mg PEG DAILY [facility] Last Admin: 05/13/16 09:20 Dose: 81 mg Clopidogrel Bisulfate (Plavix) 75 mg PEG DAILY [facility] Last Admin: 05/13/16 09:20 Dose: 75 mg Famotidine (Pepcid) 20 mg PEG BID [facility] Last Admin: 05/13/16 09:20 Dose: 20 mg Heparin Sodium (Porcine) (Heparin) 5,000 units SC Q8 [facility] Last Admin: 05/13/16 05:52 Dose: 5,000 units Lactobacillus Acidophilus (Bacid Acidophilus) 1 cap PEG BID [facility] Last Admin: 05/13/16 09:20 Dose: 1 cap Mupirocin (Bactroban Ointment) 0 gm TOP DAILY [facility] Last Admin: 05/13/16 09:21 Dose: 1 applic Oxybutynin Chloride (Ditropan Tab) 5 mg PEG TID [facility] Last Admin: 05/13/16 09:20 Dose: 5 mg Phenytoin (Dilantin) 100 mg PEG TID [facility] Last Admin: 05/13/16 09:20 Dose: 100 mg - Labs Labs: 05/12/16 07:57 05/12/16 11:20 PT 10.6 SECONDS (9.7-12.2) 11/24/15 14:10 INR 1.0 11/24/15 14:10 APTT 25 SECONDS (21-34) 11/24/15 14:10 - Additional Findings Additional findings: - Constitutional Appears: Chronically Ill - Head Exam Head Exam: ATRAUMATIC, NORMAL INSPECTION - Eye Exam Eye Exam: Normal appearance - ENT Exam ENT Exam: Mucous Membranes Moist - Neck Exam Additional comments: +trach collar. - Respiratory Exam Respiratory Exam: Rhonchi, NORMAL BREATHING PATTERN. absent: Accessory Muscle Use, Rales, Wheezes - Cardiovascular Exam Cardiovascular Exam: REGULAR RHYTHM. absent: Murmur - GI/Abdominal Exam GI & Abdominal Exam: Soft. absent: Tenderness Additional comments: +PEG tub insertion. - Extremities Exam Extremities Exam: absent: Pedal Edema Additional comments: Atrophy lower extremities in boot. - Neurological Exam Neurological Exam: absent: Oriented x3 - Skin Skin Exam: Dry Assessment and Plan - Assessment and Plan (Free Text) Assessment: (1) Anoxic encephalopathy 05/13: no acute change in clinical condition PEG tube operational, continue tube feedings. Labs on Mondays and . CBC from 05/12 wnl. PEG tube placed at bedside by Dr. Chan on 11/27/15 Pending placement (2) Respiratory Failure Cont Trach care ID on case - Dr. Armstrong Sputum culture 12/06 + pseudomonas: probably colonization. No antibiotics per Dr. Armstrong tracheostomy with tube change by Dr. Chan on 11/27/15 (3) UTI resolved Patient had Cipro 400mg IV q12h for total of 7 days Urine cultures POSITIVE Pseudomonas and E. faecalis. Ditropan 5mg PEG TID for leakage around catheter. Continue to monitor vital signs and wbc count (4) CAD (coronary artery disease) Cardiac stents on 06/13/15. Continue Lisinopril 5mg PEG daily Continue Plavix 75mg PEG daily Continue ASA 325mg PEG daily (5) Seizures Continue Dilantin 100mg PEG TID Seizure precautions. (6) Bed sore Healed. continue wound care as needed, [facility], and [facility] Sacral ulcer Stage II 0.5cm x 1.5cm- Healed. Continue repositioning of patient q2H. dolphin mattress. Heel air boots. (7) Prophylactic measure Lovenox 40 SC daily Pepcid 20 mg PEG BID [facility] Plan: Pending placement. <Donnell Ying - Last Filed: 05/13/16 15:09> Objective - Vital Signs/Intake and Output Vital Signs (last 24 hours): Temp Pulse Resp BP Pulse Ox 98 F 77 20 136/76 98 05/13/16 07:42 05/13/16 14:29 05/13/16 07:42 05/13/16 07:42 05/13/16 07:42 Intake and Output: 05/13/16 05/13/16 06:59 18:59 Intake Total 1000 600 Output Total 800 Balance 200 600 - Medications Medications: Current Medications Aspirin (Aspirin Chewable) 81 mg PEG DAILY [facility] Last Admin: 05/13/16 09:20 Dose: 81 mg Clopidogrel Bisulfate (Plavix) 75 mg PEG DAILY [facility] Last Admin: 05/13/16 09:20 Dose: 75 mg Famotidine (Pepcid) 20 mg PEG BID [facility] Last Admin: 05/13/16 09:20 Dose: 20 mg Heparin Sodium (Porcine) (Heparin) 5,000 units SC Q8 [facility] Last Admin: 05/13/16 13:32 Dose: 5,000 units Lactobacillus Acidophilus (Bacid Acidophilus) 1 cap PEG BID [facility] Last Admin: 05/13/16 09:20 Dose: 1 cap Mupirocin (Bactroban Ointment) 0 gm TOP DAILY [facility] Last Admin: 05/13/16 09:21 Dose: 1 applic Oxybutynin Chloride (Ditropan Tab) 5 mg PEG TID [facility] Last Admin: 05/13/16 13:30 Dose: 5 mg Phenytoin (Dilantin) 100 mg PEG TID [facility] Last Admin: 05/13/16 13:30 Dose: 100 mg - Labs Labs: 05/12/16 07:57 05/12/16 11:20 PT 10.6 SECONDS (9.7-12.2) 11/24/15 14:10 INR 1.0 11/24/15 14:10 APTT 25 SECONDS (21-34) 11/24/15 14:10 Attending/Attestation - Attestation I have personally seen and examined this patient.: Yes I have fully participated in the care of the patient.: Yes I have reviewed all pertinent clinical information, including history, physical exam and plan: Yes Notes (Text): 05/13/16 15:09 Patient seen and examined at bedside turned and sacral decubitus ulcer examined thoroughly. The decubitus ulcer is completely healed now. No skin break is visible Continue local care and off for tracheostomy and PEG site. Discussed with nursing staff.
--- NOTE | 2016-05-14 07:29 | CP.PCM.PN ---
<Nely Pate - Last Filed: 05/14/16 09:44> Subjective - Date & Time of Evaluation Date of Evaluation: 05/14/16 Time of Evaluation: 07:00 - Subjective Subjective: Medicine Progress Note Patient seen and examined. No acute changes overnight. Patient's clinical condition is unchanged. ROS could not be obtained. Objective - Vital Signs/Intake and Output Vital Signs (last 24 hours): Temp Pulse Resp BP Pulse Ox 98.5 F 73 20 131/81 100 05/14/16 00:00 05/14/16 00:00 05/14/16 00:00 05/14/16 00:00 05/14/16 00:00 Intake and Output: 05/14/16 05/14/16 06:59 18:59 Intake Total 1250 Output Total 800 Balance 450 - Medications Medications: Current Medications Aspirin (Aspirin Chewable) 81 mg PEG DAILY [facility] Last Admin: 05/13/16 09:20 Dose: 81 mg Clopidogrel Bisulfate (Plavix) 75 mg PEG DAILY [facility] Last Admin: 05/13/16 09:20 Dose: 75 mg Famotidine (Pepcid) 20 mg PEG BID [facility] Last Admin: 05/13/16 17:22 Dose: 20 mg Heparin Sodium (Porcine) (Heparin) 5,000 units SC Q8 [facility] Last Admin: 05/14/16 05:46 Dose: 5,000 units Lactobacillus Acidophilus (Bacid Acidophilus) 1 cap PEG BID [facility] Last Admin: 05/13/16 17:22 Dose: 1 cap Mupirocin (Bactroban Ointment) 0 gm TOP DAILY [facility] Last Admin: 05/13/16 09:21 Dose: 1 applic Oxybutynin Chloride (Ditropan Tab) 5 mg PEG TID [facility] Last Admin: 05/13/16 17:22 Dose: 5 mg Phenytoin (Dilantin) 100 mg PEG TID [facility] Last Admin: 05/13/16 17:22 Dose: 100 mg - Labs Labs: 05/12/16 07:57 05/12/16 11:20 PT 10.6 SECONDS (9.7-12.2) 11/24/15 14:10 INR 1.0 11/24/15 14:10 APTT 25 SECONDS (21-34) 11/24/15 14:10 - Additional Findings Additional findings: - Constitutional Appears: Chronically Ill - Head Exam Head Exam: ATRAUMATIC, NORMAL INSPECTION - Eye Exam Eye Exam: Normal appearance - ENT Exam ENT Exam: Mucous Membranes Moist - Neck Exam Additional comments: +trach collar. - Respiratory Exam Respiratory Exam: Rhonchi, NORMAL BREATHING PATTERN. absent: Accessory Muscle Use, Rales, Wheezes - Cardiovascular Exam Cardiovascular Exam: REGULAR RHYTHM. absent: Murmur - GI/Abdominal Exam GI & Abdominal Exam: Soft. absent: Tenderness Additional comments: +PEG tub insertion. - Extremities Exam Extremities Exam: absent: Pedal Edema Additional comments: Atrophy lower extremities in boot. - Neurological Exam Neurological Exam: absent: Oriented x3 - Skin Skin Exam: Dry Assessment and Plan - Assessment and Plan (Free Text) Assessment: (1) Anoxic encephalopathy 05/14: no acute change in clinical condition PEG tube operational, continue tube feedings. Labs on Mondays and . CBC from 05/12 wnl. PEG tube placed at bedside by Dr. Chan on 11/27/15 Pending placement (2) Respiratory Failure 05/14: Cont Trach care. Stable. ID on case - Dr. Armstrong Sputum culture 12/06 + pseudomonas: probably colonization. No antibiotics per Dr. Armstrong tracheostomy with tube change by Dr. Chan on 11/27/15 (3) UTI 05/14: resolved. Yoo catheter in place, draining clear yellow urine. Patient had Cipro 400mg IV q12h for total of 7 days Urine cultures POSITIVE Pseudomonas and E. faecalis. Ditropan 5mg PEG TID for leakage around catheter. Continue to monitor vital signs and wbc count (4) CAD (coronary artery disease) 05/14: Continue current management. stable. Cardiac stents on 06/13/15. Continue Lisinopril 5mg PEG daily Continue Plavix 75mg PEG daily Continue ASA 325mg PEG daily (5) Seizures 05/14: Controlled on current treatment. Continue Dilantin 100mg PEG TID Seizure precautions. (6) Bed sore 05/14: Healed. continue wound care as needed, [facility], and [facility] Sacral ulcer Stage II 0.5cm x 1.5cm- Healed. Continue repositioning of patient q2H. dolphin mattress. Heel air boots. (7) Prophylactic measure Lovenox 40 SC daily Pepcid 20 mg PEG BID Boots Plan: Pending placement. <Donnell Ying M - Last Filed: 05/14/16 14:23> Objective - Vital Signs/Intake and Output Vital Signs (last 24 hours): Temp Pulse Resp BP Pulse Ox 98.7 F 80 20 106/70 98 05/14/16 07:36 05/14/16 08:25 05/14/16 07:36 05/14/16 07:36 05/14/16 07:36 Intake and Output: 05/14/16 05/14/16 06:59 18:59 Intake Total 1250 600 Output Total 800 5 Balance 450 595 - Medications Medications: Current Medications Aspirin (Aspirin Chewable) 81 mg PEG DAILY [facility] Last Admin: 05/14/16 11:00 Dose: 81 mg Clopidogrel Bisulfate (Plavix) 75 mg PEG DAILY [facility] Last Admin: 05/14/16 11:00 Dose: 75 mg Famotidine (Pepcid) 20 mg PEG BID [facility] Last Admin: 05/14/16 10:59 Dose: 20 mg Heparin Sodium (Porcine) (Heparin) 5,000 units SC Q8 [facility] Last Admin: 05/14/16 14:21 Dose: 5,000 units Lactobacillus Acidophilus (Bacid Acidophilus) 1 cap PEG BID [facility] Last Admin: 05/14/16 11:00 Dose: 1 cap Mupirocin (Bactroban Ointment) 0 gm TOP DAILY [facility] Last Admin: 05/14/16 11:00 Dose: 1 applic Oxybutynin Chloride (Ditropan Tab) 5 mg PEG TID [facility] Last Admin: 05/14/16 14:21 Dose: 5 mg Phenytoin (Dilantin) 100 mg PEG TID [facility] Last Admin: 05/14/16 14:21 Dose: 100 mg - Labs Labs: 05/12/16 07:57 05/12/16 11:20 PT 10.6 SECONDS (9.7-12.2) 11/24/15 14:10 INR 1.0 11/24/15 14:10 APTT 25 SECONDS (21-34) 11/24/15 14:10 Attending/Attestation - Attestation I have personally seen and examined this patient.: Yes I have fully participated in the care of the patient.: Yes I have reviewed all pertinent clinical information, including history, physical exam and plan: Yes Notes (Text): 05/14/16 14:23 Patient seen and examined at bedside Chart reviewed and events noted. No acute events overnight. Continue local care and off for tracheostomy and PEG site. Decubitus ulcer is completely healed Continue current management. Awaiting placement
[2016-05-14] MEDS: Lactobacillus Acidophilus 500 MU Cap PEG SCH ×2 (11:00→17:17)
[2016-05-14] MEDS: Phenytoin 100 mg/4 ml Oral Susp UD PEG SCH ×3 (11:00→17:17)
[2016-05-15 07:57] LABS: BASO % 0.3 % (0.0-2.0); EOS # 0.5 K/uL (0.0-0.7); EOS % 4.8 % (0.0-4.0); HEMOGLOBIN 12.3 g/dL (12.0-18.0); LYMPH # 2.4 K/uL (1.0-4.3); LYMPH % 22.8 % (20.0-40.0); MEAN CELL VOLUME 93.9 fL (80.0-94.0); MEAN CORPUSCULAR HEMOGLOBIN 31.1 pg (27.0-31.0); MEAN CORPUSCULAR HGB CONC 33.1 g/dL (33.0-37.0); MEAN PLATELET VOLUME 8.7 fL (7.2-11.7); MONO # 1.1 K/uL (0.0-0.8); NEUT # 6.5 K/uL (1.8-7.0); NEUT % 62.1 % (50.0-75.0); NRBC % 0.2 % (0.0-2.0); RBC 3.97 Mil/uL (4.40-5.90); RED CELL DISTRIBUTION WIDTH 14.5 % (11.5-14.5); WHITE BLOOD COUNT 10.5 K/uL (4.8-10.8)
[2016-05-15] MEDS: Phenytoin 100 mg/4 ml Oral Susp UD PEG SCH ×3 (09:19→18:00)
[2016-05-15] MEDS: Lactobacillus Acidophilus 500 MU Cap PEG SCH ×2 (09:19→18:00)
--- NOTE | 2016-05-15 10:00 | CP.PCM.PN ---
<Mee Luciano - Last Filed: 05/15/16 12:08> Subjective - Date & Time of Evaluation Date of Evaluation: 05/15/16 Time of Evaluation: 09:56 - Subjective Subjective: 6/3 y/o male patient examined at bedside. No acute events overnight per nursing staff. ROS cannot be obtained as patient is not verbal. Patient appears comfortable. Objective - Vital Signs/Intake and Output Vital Signs (last 24 hours): Temp Pulse Resp BP Pulse Ox 98.7 F 81 20 122/84 100 05/15/16 07:14 05/15/16 07:14 05/15/16 07:14 05/15/16 07:14 05/15/16 07:14 Intake and Output: 05/15/16 05/15/16 06:59 18:59 Intake Total 650 Output Total 310 Balance 340 - Medications Medications: Current Medications Aspirin (Aspirin Chewable) 81 mg PEG DAILY [facility] Last Admin: 05/15/16 09:19 Dose: 81 mg Clopidogrel Bisulfate (Plavix) 75 mg PEG DAILY [facility] Last Admin: 05/15/16 09:19 Dose: 75 mg Famotidine (Pepcid) 20 mg PEG BID [facility] Last Admin: 05/15/16 09:22 Dose: 20 mg Heparin Sodium (Porcine) (Heparin) 5,000 units SC Q8 [facility] Last Admin: 05/15/16 05:53 Dose: 5,000 units Lactobacillus Acidophilus (Bacid Acidophilus) 1 cap PEG BID [facility] Last Admin: 05/15/16 09:19 Dose: 1 cap Mupirocin (Bactroban Ointment) 0 gm TOP DAILY [facility] Last Admin: 05/15/16 09:20 Dose: 1 applic Oxybutynin Chloride (Ditropan Tab) 5 mg PEG TID [facility] Last Admin: 05/15/16 09:19 Dose: 5 mg Phenytoin (Dilantin) 100 mg PEG TID [facility] Last Admin: 05/15/16 09:19 Dose: 100 mg - Labs Labs: 05/15/16 07:41 05/12/16 11:20 PT 10.6 SECONDS (9.7-12.2) 11/24/15 14:10 INR 1.0 11/24/15 14:10 APTT 25 SECONDS (21-34) 11/24/15 14:10 - Constitutional Appears: No Acute Distress, Chronically Ill - Head Exam Head Exam: NORMAL INSPECTION - Eye Exam Eye Exam: Normal appearance - ENT Exam Additional comments: Trach in place. - Respiratory Exam Respiratory Exam: Clear to Ausculation Bilateral - Cardiovascular Exam Cardiovascular Exam: REGULAR RHYTHM, RRR, +S1, +S2 - GI/Abdominal Exam GI & Abdominal Exam: Firm, Hypoactive Bowel Sounds - Extremities Exam Extremities Exam: Normal Inspection. absent: Pedal Edema - Skin Skin Exam: Normal Color Assessment and Plan - Assessment and Plan (Free Text) Plan: Assessment: (1) Anoxic encephalopathy 05/15: no acute changes Hypoactive bowel sounds and firm right lower quadrant abdomen noted on examination today. Portable Abdominal (flat plate) X-Ray: no obstruction and no free air noted per Dr. Ennis. Continue with PEG tube operational, tube feedings. PEG tube placed at bedside by Dr. Chan on 11/27/15. Labs on Mondays and . CBC from 05/15 wnl. Glucose 122. Pending placement (2) Respiratory Failure 05/15: Cont Trach care. Stable. ID on case - Dr. Armstrong Sputum culture 12/06 + pseudomonas: probably colonization. No antibiotics per Dr. Armstrong tracheostomy with tube change by Dr. Chan on 11/27/15 (3) UTI 05/15: resolved. Yoo catheter in place, draining clear yellow urine. Continue Ditropan 5mg PEG TID for leakage around catheter. Continue to monitor vital signs and wbc count (4) CAD (coronary artery disease) 05/15: Continue current management. stable. . Continue Lisinopril 5mg PEG daily Continue Plavix 75mg PEG daily Continue ASA 325mg PEG daily Cardiac stents on 06/13/15 (5) Seizures 05/15: Controlled on current treatment. Continue Dilantin 100mg PEG TID Seizure precautions. (6) Bed sore 05/15: Healed. continue wound care as needed, [facility], and [facility] Sacral ulcer Stage II 0.5cm x 1.5cm- Healed. Continue repositioning of patient q2H. dolphin mattress. Heel air boots. (7) Prophylactic measure Lovenox 40 SC daily Pepcid 20 mg PEG BID [facility] <Donnell Ying - Last Filed: 05/15/16 19:34> Objective - Vital Signs/Intake and Output Vital Signs (last 24 hours): Temp Pulse Resp BP Pulse Ox 98.3 F 71 20 131/88 100 05/15/16 16:16 05/15/16 16:16 05/15/16 16:16 05/15/16 16:16 05/15/16 16:16 Intake and Output: 05/15/16 05/16/16 18:59 06:59 Intake Total 400 Output Total 300 Balance 100 - Medications Medications: Current Medications Aspirin (Aspirin Chewable) 81 mg PEG DAILY [facility] Last Admin: 05/15/16 09:19 Dose: 81 mg Clopidogrel Bisulfate (Plavix) 75 mg PEG DAILY [facility] Last Admin: 05/15/16 09:19 Dose: 75 mg Enoxaparin Sodium (Lovenox) 40 mg SC DAILY [facility] Famotidine (Pepcid) 20 mg PEG BID [facility] Last Admin: 05/15/16 17:42 Dose: 20 mg Lactobacillus Acidophilus (Bacid Acidophilus) 1 cap PEG BID [facility] Last Admin: 05/15/16 09:19 Dose: 1 cap Mupirocin (Bactroban Ointment) 0 gm TOP DAILY [facility] Last Admin: 05/15/16 09:20 Dose: 1 applic Oxybutynin Chloride (Ditropan Tab) 5 mg PEG TID [facility] Last Admin: 05/15/16 17:42 Dose: 5 mg Phenytoin (Dilantin) 100 mg PEG TID [facility] Last Admin: 05/15/16 13:38 Dose: 100 mg - Labs Labs: 05/15/16 07:41 05/12/16 11:20 PT 10.6 SECONDS (9.7-12.2) 11/24/15 14:10 INR 1.0 11/24/15 14:10 APTT 25 SECONDS (21-34) 11/24/15 14:10 Attending/Attestation - Attestation I have personally seen and examined this patient.: Yes I have fully participated in the care of the patient.: Yes I have reviewed all pertinent clinical information, including history, physical exam and plan: Yes Notes (Text): 05/15/16 19:33 patient seen and examined at bedside No change in clinical condition. Patient is on aspirin and Plavix for coronary artery disease Patient is on Dilantin for seizure disorder. GI /DVT prophylaxis.
--- NOTE | 2016-05-15 10:59 | RAD ---
HISTORY: hypoactive bowel sounds COMPARISON: Multiple priors FINDINGS: BOWEL: Normal. No obstruction. No free air. BONES: Normal. OTHER FINDINGS: None. IMPRESSION: No active disease.
--- NOTE | 2016-05-16 10:35 | CP.PCM.PN ---
<Marquez Lucianoelle - Last Filed: 05/16/16 11:41> Subjective - Date & Time of Evaluation Date of Evaluation: 05/16/16 Time of Evaluation: 10:32 - Subjective Subjective: 65 y/o male patient examined at bedside. No acute events overnight per nursing staff. ROS cannot be obtained as patient is not verbal. Patient appears comfortable. Oral secretions have been thicker as per nurse. Objective - Vital Signs/Intake and Output Vital Signs (last 24 hours): Temp Pulse Resp BP Pulse Ox 98.4 F 70 18 113/74 97 05/16/16 08:00 05/16/16 08:00 05/16/16 08:00 05/16/16 08:00 05/16/16 08:00 Intake and Output: 05/16/16 05/16/16 06:59 18:59 Intake Total 600 Output Total 600 Balance 0 - Medications Medications: Current Medications Aspirin (Aspirin Chewable) 81 mg PEG DAILY [facility] Last Admin: 05/15/16 09:19 Dose: 81 mg Clopidogrel Bisulfate (Plavix) 75 mg PEG DAILY [facility] Last Admin: 05/15/16 09:19 Dose: 75 mg Enoxaparin Sodium (Lovenox) 40 mg SC DAILY [facility] Famotidine (Pepcid) 20 mg PEG BID [facility] Last Admin: 05/15/16 17:42 Dose: 20 mg Lactobacillus Acidophilus (Bacid Acidophilus) 1 cap PEG BID [facility] Last Admin: 05/15/16 18:00 Dose: 1 cap Mupirocin (Bactroban Ointment) 0 gm TOP DAILY [facility] Last Admin: 05/15/16 09:20 Dose: 1 applic Oxybutynin Chloride (Ditropan Tab) 5 mg PEG TID [facility] Last Admin: 05/15/16 17:42 Dose: 5 mg Phenytoin (Dilantin) 100 mg PEG TID [facility] Last Admin: 05/15/16 18:00 Dose: 100 mg - Labs Labs: 05/15/16 07:41 05/12/16 11:20 PT 10.6 SECONDS (9.7-12.2) 11/24/15 14:10 INR 1.0 11/24/15 14:10 APTT 25 SECONDS (21-34) 11/24/15 14:10 - Constitutional Appears: Chronically Ill - Head Exam Head Exam: NORMAL INSPECTION - Eye Exam Eye Exam: Normal appearance - ENT Exam ENT Exam: Mucous Membranes Moist Additional comments: thick, white secretions within oral cavity - Neck Exam Additional comments: trach in place - Respiratory Exam Respiratory Exam: absent: Clear to Ausculation Bilateral Additional comments: crackles b/l to auscultation. - Cardiovascular Exam Cardiovascular Exam: REGULAR RHYTHM - GI/Abdominal Exam GI & Abdominal Exam: Soft, Normal Bowel Sounds Additional comments: + PEG tube insertion - Neurological Exam Neurological Exam: Alert, Awake - Skin Skin Exam: Normal Color Assessment and Plan - Assessment and Plan (Free Text) Plan: (1) Anoxic encephalopathy 05/16: no acute changes Continue with PEG tube operational, tube feedings. PEG tube placed at bedside by Dr. Chan on 11/27/15. Labs on Mondays and . CBC from 05/15 wnl. 05/16: Glucose 120. Pending placement (2) Respiratory Failure 05/16: Oral secretions present. Cont Trach care and suctioning. Stable. ID on case - Dr. Armstrong Sputum culture 12/06 + pseudomonas: probably colonization. No antibiotics per Dr. Armstrong tracheostomy with tube change by Dr. Chan on 11/27/15 (3) UTI 05/16: resolved. Yoo catheter in place, draining clear yellow urine. Continue Ditropan 5mg PEG TID for leakage around catheter. Continue to monitor vital signs and wbc count (4) CAD (coronary artery disease) 05/16: Continue current management. stable. . Continue Lisinopril 5mg PEG daily Continue Plavix 75mg PEG daily Continue ASA 325mg PEG daily Cardiac stents on 06/13/15 (5) Seizures 05/16: Controlled on current treatment. Continue Dilantin 100mg PEG TID Seizure precautions. (6) Bed sore 05/16: Healed. [facility] Sacral ulcer Stage II 0.5cm x 1.5cm- Healed. Continue repositioning of patient q2H. dolphin mattress. Heel air boots. (7) Prophylactic measure Lovenox 40 SC daily Pepcid 20 mg PEG BID [facility] <Donnell Ying - Last Filed: 05/16/16 16:05> Objective - Vital Signs/Intake and Output Vital Signs (last 24 hours): Temp Pulse Resp BP Pulse Ox 98.3 F 72 20 132/87 99 05/16/16 15:57 05/16/16 15:57 05/16/16 15:57 05/16/16 15:57 05/16/16 15:57 Intake and Output: 05/16/16 05/16/16 06:59 18:59 Intake Total 600 600 Output Total 600 Balance 0 600 - Medications Medications: Current Medications Aspirin (Aspirin Chewable) 81 mg PEG DAILY [facility] Last Admin: 05/16/16 11:02 Dose: 81 mg Clopidogrel Bisulfate (Plavix) 75 mg PEG DAILY [facility] Last Admin: 05/16/16 11:02 Dose: 75 mg Enoxaparin Sodium (Lovenox) 40 mg SC DAILY [facility] Last Admin: 05/16/16 11:04 Dose: 40 mg Famotidine (Pepcid) 20 mg PEG BID [facility] Last Admin: 05/16/16 11:02 Dose: 20 mg Mupirocin (Bactroban Ointment) 0 gm TOP DAILY [facility] Last Admin: 05/16/16 11:42 Dose: 1 applic Oxybutynin Chloride (Ditropan Tab) 5 mg PEG TID [facility] Last Admin: 05/16/16 13:44 Dose: 5 mg Phenytoin (Dilantin) 100 mg PEG TID [facility] Last Admin: 05/16/16 13:44 Dose: 100 mg - Labs Labs: 05/15/16 07:41 05/12/16 11:20 PT 10.6 SECONDS (9.7-12.2) 11/24/15 14:10 INR 1.0 11/24/15 14:10 APTT 25 SECONDS (21-34) 11/24/15 14:10 Attending/Attestation - Attestation I have personally seen and examined this patient.: Yes I have fully participated in the care of the patient.: Yes I have reviewed all pertinent clinical information, including history, physical exam and plan: Yes Notes (Text): 05/16/16 16:04 patient was seen and examined at bedside with the resident. No acute events overnight Patient's family is present at bedside continue current management
[2016-05-16] MEDS: Phenytoin 100 mg/4 ml Oral Susp UD PEG SCH ×3 (11:02→17:53)
[2016-05-16] MEDS: Lactobacillus Acidophilus 500 MU Cap PEG SCH (11:03)
[2016-05-16] MEDS: Enoxaparin 40 mg Syringe SC SCH (11:04)
--- NOTE | 2016-05-17 01:45 | CP.PCM.PN ---
<Judith Forrester - Last Filed: 05/17/16 01:42> Subjective - Date & Time of Evaluation Date of Evaluation: 05/17/16 Time of Evaluation: 01:42 - Subjective Subjective: Pt seen at bedside. Pt nonverbal, appears to be in no acute distress. Objective - Vital Signs/Intake and Output Vital Signs (last 24 hours): Temp Pulse Resp BP Pulse Ox 98.6 F 85 20 133/87 99 05/16/16 23:22 05/16/16 23:22 05/16/16 23:22 05/16/16 23:22 05/16/16 23:22 Intake and Output: 05/16/16 05/17/16 18:59 06:59 Intake Total 600 Output Total 500 Balance 600 -500 - Medications Medications: Current Medications Aspirin (Aspirin Chewable) 81 mg PEG DAILY [facility] Last Admin: 05/16/16 11:02 Dose: 81 mg Clopidogrel Bisulfate (Plavix) 75 mg PEG DAILY [facility] Last Admin: 05/16/16 11:02 Dose: 75 mg Enoxaparin Sodium (Lovenox) 40 mg SC DAILY [facility] Last Admin: 05/16/16 11:04 Dose: 40 mg Famotidine (Pepcid) 20 mg PEG BID [facility] Last Admin: 05/16/16 17:53 Dose: 20 mg Mupirocin (Bactroban Ointment) 0 gm TOP DAILY [facility] Last Admin: 05/16/16 11:42 Dose: 1 applic Oxybutynin Chloride (Ditropan Tab) 5 mg PEG TID [facility] Last Admin: 05/16/16 17:52 Dose: 5 mg Phenytoin (Dilantin) 100 mg PEG TID [facility] Last Admin: 05/16/16 17:53 Dose: 100 mg - Labs Labs: 05/15/16 07:41 05/12/16 11:20 PT 10.6 SECONDS (9.7-12.2) 11/24/15 14:10 INR 1.0 11/24/15 14:10 APTT 25 SECONDS (21-34) 11/24/15 14:10 - Constitutional Appears: No Acute Distress, Chronically Ill - Head Exam Head Exam: NORMAL INSPECTION - ENT Exam ENT Exam: Mucous Membranes Moist Additional comments: thick oral secretions - Neck Exam Additional comments: pt with trach collar - Respiratory Exam Additional comments: b/l crackles - Cardiovascular Exam Cardiovascular Exam: REGULAR RHYTHM - GI/Abdominal Exam Additional comments: PEG tube Assessment and Plan - Assessment and Plan (Free Text) Assessment: (1) Anoxic encephalopathy 05/17: no acute changes Continue with PEG tube operational, tube feedings. PEG tube placed at bedside by Dr. Chan on 11/27/15. Labs on Mondays and . CBC from 05/15 wnl. 05/16: Glucose 120. Pending placement (2) Respiratory Failure 05/17: Oral secretions present. Cont Trach care and suctioning. Stable. ID on case - Dr. Armstrong Sputum culture 12/06 + pseudomonas: probably colonization. No antibiotics per Dr. Armstrong tracheostomy with tube change by Dr. Chan on 11/27/15 (3) UTI 05/17: resolved. Yoo catheter in place, draining clear yellow urine. Continue Ditropan 5mg PEG TID for leakage around catheter. Continue to monitor vital signs and wbc count (4) CAD (coronary artery disease) 05/17: Continue current management. stable. . Continue Lisinopril 5mg PEG daily Continue Plavix 75mg PEG daily Continue ASA 325mg PEG daily Cardiac stents on 06/13/15 (5) Seizures 05/17: Controlled on current treatment. Continue Dilantin 100mg PEG TID Seizure precautions. (6) Bed sore 05/17: Healed. continue wound care as needed, [facility], and [facility] Sacral ulcer Stage II 0.5cm x 1.5cm- Healed. Continue repositioning of patient q2H. dolphin mattress. Heel air boots. (7) Prophylactic measure Lovenox 40 SC daily Pepcid 20 mg PEG BID compression boots <Donnell Ying - Last Filed: 05/17/16 16:07> Objective - Vital Signs/Intake and Output Vital Signs (last 24 hours): Temp Pulse Resp BP Pulse Ox 98.6 F 85 20 133/87 99 05/16/16 23:22 05/16/16 23:22 05/16/16 23:22 05/16/16 23:22 05/16/16 23:22 Intake and Output: 05/17/16 05/17/16 06:59 18:59 Intake Total 650 680 Output Total 850 800 Balance -200 -120 - Medications Medications: Current Medications Aspirin (Aspirin Chewable) 81 mg PEG DAILY [facility] Last Admin: 05/17/16 10:52 Dose: 81 mg Clopidogrel Bisulfate (Plavix) 75 mg PEG DAILY [facility] Last Admin: 05/17/16 10:52 Dose: 75 mg Enoxaparin Sodium (Lovenox) 40 mg SC DAILY [facility] Last Admin: 05/17/16 10:53 Dose: 40 mg Famotidine (Pepcid) 20 mg PEG BID [facility] Last Admin: 05/17/16 10:52 Dose: 20 mg Mupirocin (Bactroban Ointment) 0 gm TOP DAILY [facility] Last Admin: 05/17/16 10:53 Dose: 1 applic Oxybutynin Chloride (Ditropan Tab) 5 mg PEG TID [facility] Last Admin: 05/17/16 14:34 Dose: 5 mg Phenytoin (Dilantin) 100 mg PEG TID [facility] Last Admin: 05/17/16 14:34 Dose: 100 mg - Labs Labs: 05/15/16 07:41 05/12/16 11:20 PT 10.6 SECONDS (9.7-12.2) 11/24/15 14:10 INR 1.0 11/24/15 14:10 APTT 25 SECONDS (21-34) 11/24/15 14:10 Attending/Attestation - Attestation I have personally seen and examined this patient.: Yes I have fully participated in the care of the patient.: Yes I have reviewed all pertinent clinical information, including history, physical exam and plan: Yes Notes (Text): 05/17/16 16:06 Patient seen and examined at bedside with the resident. No acute events overnight noted. Continue current management .
[2016-05-17] MEDS: Phenytoin 100 mg/4 ml Oral Susp UD PEG SCH ×3 (10:52→17:19)
[2016-05-17] MEDS: Enoxaparin 40 mg Syringe SC SCH (10:53)
--- NOTE | 2016-05-18 03:57 | CP.PCM.PN ---
<Judith Forrester - Last Filed: 05/18/16 03:54> Subjective - Date & Time of Evaluation Date of Evaluation: 05/18/16 Time of Evaluation: 03:54 - Subjective Subjective: Pt seen at bedside. Pt appears to be in no acute distress. Pt nonverbal Objective - Vital Signs/Intake and Output Vital Signs (last 24 hours): Temp Pulse Resp BP Pulse Ox 97.6 F 86 20 132/85 99 05/18/16 00:16 05/18/16 00:16 05/18/16 00:16 05/18/16 00:16 05/18/16 00:16 Intake and Output: 05/17/16 05/18/16 18:59 06:59 Intake Total 680 750 Output Total 800 400 Balance -120 350 - Medications Medications: Current Medications Aspirin (Aspirin Chewable) 81 mg PEG DAILY [facility] Last Admin: 05/17/16 10:52 Dose: 81 mg Clopidogrel Bisulfate (Plavix) 75 mg PEG DAILY [facility] Last Admin: 05/17/16 10:52 Dose: 75 mg Enoxaparin Sodium (Lovenox) 40 mg SC DAILY [facility] Last Admin: 05/17/16 10:53 Dose: 40 mg Famotidine (Pepcid) 20 mg PEG BID [facility] Last Admin: 05/17/16 17:20 Dose: 20 mg Mupirocin (Bactroban Ointment) 0 gm TOP DAILY [facility] Last Admin: 05/17/16 10:53 Dose: 1 applic Oxybutynin Chloride (Ditropan Tab) 5 mg PEG TID [facility] Last Admin: 05/17/16 17:19 Dose: 5 mg Phenytoin (Dilantin) 100 mg PEG TID [facility] Last Admin: 05/17/16 17:19 Dose: 100 mg - Labs Labs: 05/15/16 07:41 05/12/16 11:20 PT 10.6 SECONDS (9.7-12.2) 11/24/15 14:10 INR 1.0 11/24/15 14:10 APTT 25 SECONDS (21-34) 11/24/15 14:10 - Constitutional Appears: No Acute Distress, Chronically Ill - Head Exam Head Exam: ATRAUMATIC - ENT Exam ENT Exam: Mucous Membranes Dry - Neck Exam Additional comments: trach collar - Respiratory Exam Additional comments: crackles b/l - Cardiovascular Exam Cardiovascular Exam: REGULAR RHYTHM - GI/Abdominal Exam Additional comments: PEG tube w/ clean dressing - Extremities Exam Additional comments: SCDs Assessment and Plan - Assessment and Plan (Free Text) Assessment: (1) Anoxic encephalopathy 05/18: no acute changes Continue with PEG tube operational, tube feedings. PEG tube placed at bedside by Dr. Chan on 11/27/15. Labs on Mondays and . CBC from 05/15 wnl. 05/16: Glucose 120. Pending placement (2) Respiratory Failure Cont Trach care and suctioning. Stable. ID on case - Dr. Armstrong Sputum culture 12/06 + pseudomonas: probably colonization. No antibiotics per Dr. Armstrong tracheostomy with tube change by Dr. Chan on 11/27/15 (3) UTI 05/18: resolved. Yoo catheter in place, draining clear yellow urine. Continue Ditropan 5mg PEG TID for leakage around catheter. Continue to monitor vital signs and wbc count (4) CAD (coronary artery disease) 05/18: Continue current management. stable. . Continue Lisinopril 5mg PEG daily Continue Plavix 75mg PEG daily Continue ASA 325mg PEG daily Cardiac stents on 06/13/15 (5) Seizures 05/18: Controlled on current treatment. Continue Dilantin 100mg PEG TID Seizure precautions. (6) Bed sore 05/18: Healed. continue wound care as needed, sensicare, and medihoney Sacral ulcer Stage II 0.5cm x 1.5cm- Healed. Continue repositioning of patient q2H. dolphin mattress. Heel air boots. (7) Prophylactic measure Lovenox 40 SC daily Pepcid 20 mg PEG BID compression boots <Donnell Ying - Last Filed: 05/18/16 15:15> Objective - Vital Signs/Intake and Output Vital Signs (last 24 hours): Temp Pulse Resp BP Pulse Ox 97.6 F 72 20 127/82 100 05/18/16 08:24 05/18/16 08:24 05/18/16 08:24 05/18/16 08:24 05/18/16 08:24 Intake and Output: 05/18/16 05/18/16 06:59 18:59 Intake Total 1430 780 Output Total 640 900 Balance 790 -120 - Medications Medications: Current Medications Aspirin (Aspirin Chewable) 81 mg PEG DAILY [facility] Last Admin: 05/18/16 09:37 Dose: 81 mg Clopidogrel Bisulfate (Plavix) 75 mg PEG DAILY [facility] Last Admin: 05/18/16 09:37 Dose: 75 mg Enoxaparin Sodium (Lovenox) 40 mg SC DAILY [facility] Last Admin: 05/18/16 09:37 Dose: 40 mg Famotidine (Pepcid) 20 mg PEG BID [facility] Last Admin: 05/18/16 09:37 Dose: 20 mg Mupirocin (Bactroban Ointment) 0 gm TOP DAILY [facility] Last Admin: 05/18/16 09:41 Dose: 1 applic Oxybutynin Chloride (Ditropan Tab) 5 mg PEG TID [facility] Last Admin: 05/18/16 13:58 Dose: 5 mg Phenytoin (Dilantin) 100 mg PEG TID [facility] Last Admin: 05/18/16 13:58 Dose: 100 mg - Labs Labs: 05/15/16 07:41 05/12/16 11:20 PT 10.6 SECONDS (9.7-12.2) 11/24/15 14:10 INR 1.0 11/24/15 14:10 APTT 25 SECONDS (21-34) 11/24/15 14:10 Attending/Attestation - Attestation I have personally seen and examined this patient.: Yes I have fully participated in the care of the patient.: Yes I have reviewed all pertinent clinical information, including history, physical exam and plan: Yes Notes (Text): 05/18/16 15:14 Patient seen and examined at bedside Patient is comfortable with no acute distress at No acute events noted overnight We will continue current management Decubitus ulcer is healed Continue local care of tracheostomy and PEG site Continue feeding as bolus during the day and continuous at night GI and DVT prophylaxis.
[2016-05-18] MEDS: Enoxaparin 40 mg Syringe SC SCH (09:37)
[2016-05-18] MEDS: Phenytoin 100 mg/4 ml Oral Susp UD PEG SCH ×3 (09:37→17:02)
[2016-05-19 07:56] LABS: ALBUMIN 3.2 g/dL (3.5-5.0); BASO % 0.2 % (0.0-2.0); EOS # 0.4 K/uL (0.0-0.7); EOS % 5.2 % (0.0-4.0); HEMOGLOBIN 12.1 g/dL (12.0-18.0); LYMPH % 23.3 % (20.0-40.0); MEAN CELL VOLUME 93.4 fL (80.0-94.0); MEAN CORPUSCULAR HEMOGLOBIN 30.8 pg (27.0-31.0); MEAN CORPUSCULAR HGB CONC 32.9 g/dL (33.0-37.0); MEAN PLATELET VOLUME 8.5 fL (7.2-11.7); MONO # 0.9 K/uL (0.0-0.8); MONO % 10.3 % (0.0-10.0); NEUT # 5.3 K/uL (1.8-7.0); RBC 3.93 Mil/uL (4.40-5.90); RED CELL DISTRIBUTION WIDTH 14.3 % (11.5-14.5); WHITE BLOOD COUNT 8.7 K/uL (4.8-10.8)
[2016-05-19 07:59] LABS: ALB/GLOB RATIO 0.8 (1.0-2.1); GFR NON-AFRICAN AMERICAN > 60
[2016-05-19 08:00] LABS: ALT/SGPT 40 U/L (21-72); AST/SGOT 30 U/L (17-59); BLOOD UREA NITROGEN 26 mg/dL (9-20); CALCIUM 8.8 mg/dl (8.6-10.4)
[2016-05-19] MEDS: Phenytoin 100 mg/4 ml Oral Susp UD PEG SCH ×3 (09:00→17:31)
[2016-05-19] MEDS: Enoxaparin 40 mg Syringe SC SCH (09:03)
--- NOTE | 2016-05-19 09:20 | CP.PCM.PN ---
<Mee Luciano - Last Filed: 05/19/16 16:38> Subjective - Date & Time of Evaluation Date of Evaluation: 05/19/16 Time of Evaluation: 09:18 - Subjective Subjective: Pt examined at bedside. Patient is nonverbal. Patient is in no acute distress. Oral secretions currently being suctioned at bedside per Respiratory. Objective - Vital Signs/Intake and Output Vital Signs (last 24 hours): Temp Pulse Resp BP Pulse Ox 98.8 F 88 20 129/84 99 05/18/16 23:27 05/18/16 23:27 05/18/16 23:27 05/18/16 23:27 05/18/16 23:27 Intake and Output: 05/19/16 05/19/16 06:59 18:59 Intake Total 1150 Output Total 1400 Balance -250 - Medications Medications: Current Medications Aspirin (Aspirin Chewable) 81 mg PEG DAILY [facility] Last Admin: 05/19/16 09:02 Dose: 81 mg Clopidogrel Bisulfate (Plavix) 75 mg PEG DAILY [facility] Last Admin: 05/19/16 09:02 Dose: 75 mg Enoxaparin Sodium (Lovenox) 40 mg SC DAILY [facility] Last Admin: 05/19/16 09:03 Dose: 40 mg Famotidine (Pepcid) 20 mg PEG BID [facility] Last Admin: 05/19/16 09:03 Dose: 20 mg Mupirocin (Bactroban Ointment) 0 gm TOP DAILY [facility] Last Admin: 05/19/16 09:04 Dose: 1 applic Oxybutynin Chloride (Ditropan Tab) 5 mg PEG TID [facility] Last Admin: 05/19/16 09:03 Dose: 5 mg Phenytoin (Dilantin) 100 mg PEG TID [facility] Last Admin: 05/19/16 09:00 Dose: 100 mg - Labs Labs: 05/19/16 07:29 05/19/16 07:29 PT 10.6 SECONDS (9.7-12.2) 11/24/15 14:10 INR 1.0 11/24/15 14:10 APTT 25 SECONDS (21-34) 11/24/15 14:10 - Constitutional Appears: No Acute Distress, Chronically Ill - Head Exam Head Exam: NORMAL INSPECTION, NORMOCEPHALIC - Eye Exam Eye Exam: EOMI, Normal appearance - ENT Exam ENT Exam: Mucous Membranes Moist Additional comments: thick white oral secretions present - Neck Exam Additional comments: trach in place - Respiratory Exam Respiratory Exam: NORMAL BREATHING PATTERN Additional comments: congested b/l on auscultation - Cardiovascular Exam Cardiovascular Exam: REGULAR RHYTHM, RRR, +S1, +S2 - GI/Abdominal Exam GI & Abdominal Exam: Soft, Normal Bowel Sounds Additional comments: Picc line in place - Extremities Exam Extremities Exam: Normal Inspection - Neurological Exam Neurological Exam: Awake - Psychiatric Exam Psychiatric exam: Normal Mood - Skin Skin Exam: Normal Color Assessment and Plan - Assessment and Plan (Free Text) Plan: (1) Anoxic encephalopathy 05/19: no acute changes Continue with PEG tube operational, tube feedings. PEG tube placed at bedside by Dr. Chan on 11/27/15. Labs on Mondays and . CBC from 05/19 wnl. 05/16: Glucose 107. Pending placement (2) Respiratory Failure 05/19: Cont Trach care and suctioning. Stable. ID on case - Dr. Armstrong Sputum culture 12/06 + pseudomonas: probably colonization. No antibiotics per Dr. Armstrong tracheostomy with tube change by Dr. Chan on 11/27/15 (3) UTI 05/19: resolved. Yoo catheter in place, draining clear yellow urine. Continue Ditropan 5mg PEG TID for leakage around catheter. Continue to monitor vital signs and wbc count (4) CAD (coronary artery disease) 05/19: Continue current management. stable. . Continue Lisinopril 5mg PEG daily Continue Plavix 75mg PEG daily Continue ASA 325mg PEG daily Cardiac stents on 06/13/15 (5) Seizures 05/19: Controlled on current treatment. Continue Dilantin 100mg PEG TID Seizure precautions. (6) Bed sore 05/19: Healed. continue wound care as needed, sensicare, and mediney Sacral ulcer Stage II 0.5cm x 1.5cm- Healed. Continue repositioning of patient q2H. dolphin mattress. Heel air boots. (7) Prophylactic measure Lovenox 40 SC daily Pepcid 20 mg PEG BID compression boots <Rashel Rodrigues - Last Filed: 05/19/16 17:46> Objective - Vital Signs/Intake and Output Vital Signs (last 24 hours): Temp Pulse Resp BP Pulse Ox 98.2 F 86 20 120/82 99 05/19/16 16:10 05/19/16 16:22 05/19/16 16:10 05/19/16 16:10 05/19/16 16:10 Intake and Output: 05/19/16 05/19/16 06:59 18:59 Intake Total 1150 Output Total 1400 300 Balance -250 -300 - Medications Medications: Current Medications Aspirin (Aspirin Chewable) 81 mg PEG DAILY [facility] Last Admin: 05/19/16 09:02 Dose: 81 mg Clopidogrel Bisulfate (Plavix) 75 mg PEG DAILY [facility] Last Admin: 05/19/16 09:02 Dose: 75 mg Enoxaparin Sodium (Lovenox) 40 mg SC DAILY [facility] Last Admin: 05/19/16 09:03 Dose: 40 mg Famotidine (Pepcid) 20 mg PEG BID [facility] Last Admin: 05/19/16 17:33 Dose: 20 mg Mupirocin (Bactroban Ointment) 0 gm TOP DAILY [facility] Last Admin: 05/19/16 09:04 Dose: 1 applic Oxybutynin Chloride (Ditropan Tab) 5 mg PEG TID [facility] Last Admin: 05/19/16 17:33 Dose: 5 mg Phenytoin (Dilantin) 100 mg PEG TID [facility] Last Admin: 05/19/16 17:31 Dose: 100 mg - Labs Labs: 05/19/16 07:29 05/19/16 07:29 PT 10.6 SECONDS (9.7-12.2) 11/24/15 14:10 INR 1.0 11/24/15 14:10 APTT 25 SECONDS (21-34) 11/24/15 14:10 Attending/Attestation - Attestation I have personally seen and examined this patient.: Yes I have fully participated in the care of the patient.: Yes I have reviewed all pertinent clinical information, including history, physical exam and plan: Yes
[2016-05-20] MEDS: Phenytoin 100 mg/4 ml Oral Susp UD PEG SCH ×3 (09:51→17:36)
[2016-05-20] MEDS: Enoxaparin 40 mg Syringe SC SCH (09:51)
--- NOTE | 2016-05-20 10:03 | CP.PCM.PN ---
<Rashel Rodrigues - Last Filed: 05/20/16 17:09> Objective - Vital Signs/Intake and Output Vital Signs (last 24 hours): Temp Pulse Resp BP Pulse Ox 98.7 F 82 20 108/73 100 05/20/16 15:00 05/20/16 16:49 05/20/16 15:00 05/20/16 15:00 05/20/16 15:00 Intake and Output: 05/20/16 05/20/16 06:59 18:59 Intake Total 1350 680 Output Total 1000 650 Balance 350 30 - Medications Medications: Current Medications Aspirin (Aspirin Chewable) 81 mg PEG DAILY [facility] Last Admin: 05/20/16 09:51 Dose: 81 mg Clopidogrel Bisulfate (Plavix) 75 mg PEG DAILY [facility] Last Admin: 05/20/16 09:51 Dose: 75 mg Enoxaparin Sodium (Lovenox) 40 mg SC DAILY [facility] Last Admin: 05/20/16 09:51 Dose: 40 mg Famotidine (Pepcid) 20 mg PEG BID [facility] Last Admin: 05/20/16 09:50 Dose: 20 mg Mupirocin (Bactroban Ointment) 0 gm TOP DAILY [facility] Last Admin: 05/19/16 09:04 Dose: 1 applic Oxybutynin Chloride (Ditropan Tab) 5 mg PEG TID [facility] Last Admin: 05/20/16 13:55 Dose: 5 mg Phenytoin (Dilantin) 100 mg PEG TID [facility] Last Admin: 05/20/16 13:55 Dose: 100 mg - Labs Labs: 05/19/16 07:29 05/19/16 07:29 PT 10.6 SECONDS (9.7-12.2) 11/24/15 14:10 INR 1.0 11/24/15 14:10 APTT 25 SECONDS (21-34) 11/24/15 14:10 Attending/Attestation - Attestation I have personally seen and examined this patient.: Yes I have fully participated in the care of the patient.: Yes I have reviewed all pertinent clinical information, including history, physical exam and plan: Yes <Mee Luciano - Last Filed: 05/20/16 20:25> Subjective - Date & Time of Evaluation Date of Evaluation: 05/20/16 Time of Evaluation: 09:52 - Subjective Subjective: Patient examined at bedside. No acute events over night per nursing. Patient non verbal. Objective - Vital Signs/Intake and Output Vital Signs (last 24 hours): Temp Pulse Resp BP Pulse Ox 97.5 F L 77 20 129/79 95 05/20/16 08:09 05/20/16 08:09 05/20/16 08:09 05/20/16 08:09 05/20/16 08:09 Intake and Output: 05/20/16 05/20/16 06:59 18:59 Intake Total 1350 Output Total 1000 Balance 350 - Medications Medications: Current Medications Aspirin (Aspirin Chewable) 81 mg PEG DAILY [facility] Last Admin: 05/20/16 09:51 Dose: 81 mg Clopidogrel Bisulfate (Plavix) 75 mg PEG DAILY [facility] Last Admin: 05/20/16 09:51 Dose: 75 mg Enoxaparin Sodium (Lovenox) 40 mg SC DAILY [facility] Last Admin: 05/20/16 09:51 Dose: 40 mg Famotidine (Pepcid) 20 mg PEG BID [facility] Last Admin: 05/20/16 09:50 Dose: 20 mg Mupirocin (Bactroban Ointment) 0 gm TOP DAILY [facility] Last Admin: 05/19/16 09:04 Dose: 1 applic Oxybutynin Chloride (Ditropan Tab) 5 mg PEG TID [facility] Last Admin: 05/20/16 09:51 Dose: 5 mg Phenytoin (Dilantin) 100 mg PEG TID [facility] Last Admin: 05/20/16 09:51 Dose: 100 mg - Labs Labs: 05/19/16 07:29 05/19/16 07:29 PT 10.6 SECONDS (9.7-12.2) 11/24/15 14:10 INR 1.0 11/24/15 14:10 APTT 25 SECONDS (21-34) 11/24/15 14:10 - Constitutional Appears: No Acute Distress - Head Exam Head Exam: NORMAL INSPECTION, NORMOCEPHALIC - Eye Exam Eye Exam: Normal appearance - ENT Exam ENT Exam: Mucous Membranes Moist - Neck Exam Additional comments: trach in place - Respiratory Exam Respiratory Exam: NORMAL BREATHING PATTERN - Cardiovascular Exam Cardiovascular Exam: REGULAR RHYTHM, RRR, +S1, +S2 - GI/Abdominal Exam GI & Abdominal Exam: Soft, Normal Bowel Sounds Additional comments: PEG tube IN PLACE - Exam Additional comments: Yoo in place - Extremities Exam Extremities Exam: Normal Inspection - Skin Skin Exam: Normal Color Assessment and Plan - Assessment and Plan (Free Text) Plan: (1) Anoxic encephalopathy 05/20: no acute changes Continue with PEG tube operational, tube feedings. PEG tube placed at bedside by Dr. Chan on 11/27/15. Labs on Mondays and . CBC from 05/19 wnl. 05/16: Glucose 107. Pending placement (2) Respiratory Failure 05/20: Cont Trach care and suctioning. Stable. ID on case - Dr. Armstrong Sputum culture 12/06 + pseudomonas: probably colonization. No antibiotics per Dr. Armstrong tracheostomy with tube change by Dr. Chan on 11/27/15 (3) UTI resolved Yoo catheter in place, draining clear yellow urine. Continue Ditropan 5mg PEG TID for leakage around catheter. Continue to monitor vital signs and wbc count (4) CAD (coronary artery disease) 05/20: Continue current management. stable. . Continue Lisinopril 5mg PEG daily Continue Plavix 75mg PEG daily Continue ASA 325mg PEG daily Cardiac stents on 06/13/15 (5) Seizures 05/20: Controlled on current treatment. Continue Dilantin 100mg PEG TID Seizure precautions. (6) Bed sore 05/20: Healed. continue wound care as needed, sensicare, and mediney Sacral ulcer Stage II 0.5cm x 1.5cm- Healed. Continue repositioning of patient q2H. dolphin mattress. Heel air boots. (7) Prophylactic measure Lovenox 40 SC daily Pepcid 20 mg PEG BID compression boots
--- NOTE | 2016-05-21 07:55 | CP.PCM.PN ---
<Rashel Rodrigues - Last Filed: 05/21/16 15:18> Objective - Vital Signs/Intake and Output Vital Signs (last 24 hours): Temp Pulse Resp BP Pulse Ox 97.6 F 95 H 20 126/80 99 05/21/16 08:00 05/21/16 08:00 05/21/16 08:00 05/21/16 08:00 05/21/16 08:00 Intake and Output: 05/21/16 05/21/16 06:59 18:59 Intake Total 1350 980 Output Total 700 500 Balance 650 480 - Medications Medications: Current Medications Aspirin (Aspirin Chewable) 81 mg PEG DAILY [facility] Last Admin: 05/21/16 09:16 Dose: 81 mg Clopidogrel Bisulfate (Plavix) 75 mg PEG DAILY [facility] Last Admin: 05/21/16 09:16 Dose: 75 mg Enoxaparin Sodium (Lovenox) 40 mg SC DAILY [facility] Last Admin: 05/21/16 09:16 Dose: 40 mg Famotidine (Pepcid) 20 mg PEG BID [facility] Last Admin: 05/21/16 09:16 Dose: 20 mg Mupirocin (Bactroban Ointment) 0 gm TOP DAILY [facility] Last Admin: 05/21/16 10:00 Dose: 1 applic Oxybutynin Chloride (Ditropan Tab) 5 mg PEG TID [facility] Last Admin: 05/21/16 14:14 Dose: 5 mg Phenytoin (Dilantin) 100 mg PEG TID [facility] Last Admin: 05/21/16 14:14 Dose: 100 mg - Labs Labs: 05/19/16 07:29 05/19/16 07:29 PT 10.6 SECONDS (9.7-12.2) 11/24/15 14:10 INR 1.0 11/24/15 14:10 APTT 25 SECONDS (21-34) 11/24/15 14:10 Attending/Attestation - Attestation I have personally seen and examined this patient.: Yes I have fully participated in the care of the patient.: Yes I have reviewed all pertinent clinical information, including history, physical exam and plan: Yes <Mee Luciano - Last Filed: 05/21/16 21:25> Subjective - Date & Time of Evaluation Date of Evaluation: 05/21/16 Time of Evaluation: 07:52 - Subjective Subjective: Patient examined at bedside. Appears comfortable. Patient non-verbal. Objective - Vital Signs/Intake and Output Vital Signs (last 24 hours): Temp Pulse Resp BP Pulse Ox 98 F 87 20 109/73 99 05/20/16 23:33 05/20/16 23:33 05/20/16 23:33 05/20/16 23:33 05/20/16 23:33 Intake and Output: 05/21/16 05/21/16 06:59 18:59 Intake Total 1350 Output Total 700 Balance 650 - Medications Medications: Current Medications Aspirin (Aspirin Chewable) 81 mg PEG DAILY [facility] Last Admin: 05/20/16 09:51 Dose: 81 mg Clopidogrel Bisulfate (Plavix) 75 mg PEG DAILY [facility] Last Admin: 05/20/16 09:51 Dose: 75 mg Enoxaparin Sodium (Lovenox) 40 mg SC DAILY [facility] Last Admin: 05/20/16 09:51 Dose: 40 mg Famotidine (Pepcid) 20 mg PEG BID [facility] Last Admin: 05/20/16 17:36 Dose: 20 mg Mupirocin (Bactroban Ointment) 0 gm TOP DAILY [facility] Last Admin: 05/19/16 09:04 Dose: 1 applic Oxybutynin Chloride (Ditropan Tab) 5 mg PEG TID [facility] Last Admin: 05/20/16 17:36 Dose: 5 mg Phenytoin (Dilantin) 100 mg PEG TID [facility] Last Admin: 05/20/16 17:36 Dose: 100 mg - Labs Labs: 05/19/16 07:29 05/19/16 07:29 PT 10.6 SECONDS (9.7-12.2) 11/24/15 14:10 INR 1.0 11/24/15 14:10 APTT 25 SECONDS (21-34) 11/24/15 14:10 - Constitutional Appears: No Acute Distress - Head Exam Head Exam: NORMAL INSPECTION - Eye Exam Eye Exam: Normal appearance - ENT Exam ENT Exam: Mucous Membranes Moist Additional comments: thick white oral secretions - Neck Exam Neck Exam: Normal Inspection Additional comments: trach in place - Respiratory Exam Respiratory Exam: Clear to Ausculation Bilateral, NORMAL BREATHING PATTERN - Cardiovascular Exam Cardiovascular Exam: REGULAR RHYTHM, +S1, +S2 - GI/Abdominal Exam GI & Abdominal Exam: Soft, Normal Bowel Sounds Additional comments: PEG tube in place - Exam Exam: NORMAL INSPECTION Additional comments: baker in place - Extremities Exam Extremities Exam: Normal Inspection - Neurological Exam Neurological Exam: Awake - Psychiatric Exam Psychiatric exam: Normal Affect - Skin Skin Exam: Dry, Normal Color Assessment and Plan - Assessment and Plan (Free Text) Plan: (1) Anoxic encephalopathy 05/21: no acute changes Continue with PEG tube operational, tube feedings. PEG tube placed at bedside by Dr. Chan on 11/27/15. Labs on Mondays and . CBC from 05/19 wnl. 05/16: Glucose 107. Pending placement (2) Respiratory Failure 05/21: Cont Trach care and suctioning. Stable. ID on case - Dr. Armstrong Sputum culture 12/06 + pseudomonas: probably colonization. No antibiotics per Dr. Armstrong tracheostomy with tube change by Dr. Chan on 11/27/15 (3) UTI resolved Baker catheter in place, draining clear yellow urine. Continue Ditropan 5mg PEG TID for leakage around catheter. Continue to monitor vital signs and wbc count (4) CAD (coronary artery disease) 05/21: Continue current management. stable. . Continue Lisinopril 5mg PEG daily Continue Plavix 75mg PEG daily Continue ASA 325mg PEG daily Cardiac stents on 06/13/15 (5) Seizures 05/21: Controlled on current treatment. Continue Dilantin 100mg PEG TID Seizure precautions. (6) Bed sore 05/21: Healed. continue wound care as needed, sensicare, and mediney Sacral ulcer Stage II 0.5cm x 1.5cm- Healed. Continue repositioning of patient q2H. dolphin mattress. Heel air boots. (7) Prophylactic measure Lovenox 40 SC daily Pepcid 20 mg PEG BID compression boots
[2016-05-21] MEDS: Enoxaparin 40 mg Syringe SC SCH (09:16)
[2016-05-21] MEDS: Phenytoin 100 mg/4 ml Oral Susp UD PEG SCH ×3 (09:16→17:52)
[2016-05-22 08:36] LABS: BASO % 0.4 % (0.0-2.0); EOS # 0.4 K/uL (0.0-0.7); EOS % 5.1 % (0.0-4.0); HEMOGLOBIN 12.3 g/dL (12.0-18.0); LYMPH % 25.4 % (20.0-40.0); MEAN CELL VOLUME 92.5 fL (80.0-94.0); MEAN CORPUSCULAR HEMOGLOBIN 30.7 pg (27.0-31.0); MEAN CORPUSCULAR HGB CONC 33.2 g/dL (33.0-37.0); MEAN PLATELET VOLUME 8.5 fL (7.2-11.7); MONO # 0.9 K/uL (0.0-0.8); MONO % 11.9 % (0.0-10.0); NEUT # 4.4 K/uL (1.8-7.0); NEUT % 57.2 % (50.0-75.0); NRBC % 0.1 % (0.0-2.0); RED CELL DISTRIBUTION WIDTH 14.1 % (11.5-14.5); WHITE BLOOD COUNT 7.7 K/uL (4.8-10.8)
[2016-05-22 08:53] LABS: ALBUMIN 3.2 g/dL (3.5-5.0)
[2016-05-22 08:56] LABS: ALB/GLOB RATIO 0.8 (1.0-2.1); AST/SGOT 26 U/L (17-59); BLOOD UREA NITROGEN 21 mg/dL (9-20); GFR NON-AFRICAN AMERICAN > 60
[2016-05-22 08:57] LABS: ALT/SGPT 49 U/L (21-72); CALCIUM 8.8 mg/dl (8.6-10.4)
[2016-05-22] MEDS: Enoxaparin 40 mg Syringe SC SCH (10:31)
[2016-05-22] MEDS: Phenytoin 100 mg/4 ml Oral Susp UD PEG SCH ×3 (10:32→17:40)
--- NOTE | 2016-05-22 10:34 | CP.PCM.PN ---
<WesleyMee raoms - Last Filed: 05/22/16 10:31> Subjective - Date & Time of Evaluation Date of Evaluation: 05/22/16 Time of Evaluation: 10:31 - Subjective Subjective: Patient examined at bedside. Patient appears comfortable. Unable to perform ROS as patient is nonverbal. Objective - Vital Signs/Intake and Output Vital Signs (last 24 hours): Temp Pulse Resp BP Pulse Ox 98.7 F 81 20 102/67 99 05/22/16 00:02 05/22/16 08:00 05/22/16 00:02 05/22/16 00:02 05/22/16 00:02 Intake and Output: 05/22/16 05/22/16 06:59 18:59 Intake Total 1250 Output Total 800 Balance 450 - Medications Medications: Current Medications Aspirin (Aspirin Chewable) 81 mg PEG DAILY [facility] Last Admin: 05/21/16 09:16 Dose: 81 mg Clopidogrel Bisulfate (Plavix) 75 mg PEG DAILY [facility] Last Admin: 05/21/16 09:16 Dose: 75 mg Enoxaparin Sodium (Lovenox) 40 mg SC DAILY [facility] Last Admin: 05/21/16 09:16 Dose: 40 mg Famotidine (Pepcid) 20 mg PEG BID [facility] Last Admin: 05/21/16 17:46 Dose: 20 mg Mupirocin (Bactroban Ointment) 0 gm TOP DAILY [facility] Last Admin: 05/21/16 10:00 Dose: 1 applic Oxybutynin Chloride (Ditropan Tab) 5 mg PEG TID [facility] Last Admin: 05/21/16 17:46 Dose: 5 mg Phenytoin (Dilantin) 100 mg PEG TID [facility] Last Admin: 05/21/16 17:52 Dose: 100 mg - Labs Labs: 05/22/16 08:18 05/22/16 08:18 PT 10.6 SECONDS (9.7-12.2) 11/24/15 14:10 INR 1.0 11/24/15 14:10 APTT 25 SECONDS (21-34) 11/24/15 14:10 - Constitutional Appears: No Acute Distress - Head Exam Head Exam: NORMAL INSPECTION - Eye Exam Eye Exam: Normal appearance - ENT Exam ENT Exam: Mucous Membranes Moist Additional comments: white thick secretion of oral pharynx - Neck Exam Neck Exam: Normal Inspection Additional comments: trach in place - Respiratory Exam Respiratory Exam: Clear to Ausculation Bilateral - Cardiovascular Exam Cardiovascular Exam: REGULAR RHYTHM, +S1, +S2 - GI/Abdominal Exam GI & Abdominal Exam: Soft, Normal Bowel Sounds Additional comments: PEG in place - Exam Exam: NORMAL INSPECTION Additional comments: Yoo in place - Extremities Exam Extremities Exam: Normal Inspection - Neurological Exam Neurological Exam: Awake - Skin Skin Exam: Normal Color Assessment and Plan - Assessment and Plan (Free Text) Plan: 1) Anoxic encephalopathy 05/22: no acute changes Continue with PEG tube operational, tube feedings. PEG tube placed at bedside by Dr. Chan on 11/27/15. Labs on Mondays. CBC from 05/19 wnl. Pending placement (2) Respiratory Failure 05/22: Cont Trach care and suctioning. Stable. ID on case - Dr. Armstrong Sputum culture 12/06 + pseudomonas: probably colonization. No antibiotics per Dr. Armstrong tracheostomy with tube change by Dr. Chan on 11/27/15 (3) UTI resolved Yoo catheter in place, draining clear yellow urine. Continue Ditropan 5mg PEG TID for leakage around catheter. Continue to monitor vital signs and wbc count (4) CAD (coronary artery disease) 05/22: Continue current management. stable. . Continue Lisinopril 5mg PEG daily Continue Plavix 75mg PEG daily Continue ASA 325mg PEG daily Cardiac stents on 06/13/15 (5) Seizures 05/22: Controlled on current treatment. Continue Dilantin 100mg PEG TID Seizure precautions. (6) Bed sore 05/22: Healed. continue wound care as needed, sensicare, and medihoney Sacral ulcer Stage II 0.5cm x 1.5cm- Healed. Continue repositioning of patient q2H. dolphin mattress. Heel air boots. (7) Prophylactic measure Lovenox 40 SC daily Pepcid 20 mg PEG BID compression boots <Rashel Rodrigues - Last Filed: 05/22/16 15:05> Objective - Vital Signs/Intake and Output Vital Signs (last 24 hours): Temp Pulse Resp BP Pulse Ox 98.7 F 81 20 102/67 99 05/22/16 00:02 05/22/16 08:00 05/22/16 00:02 05/22/16 00:02 05/22/16 00:02 Intake and Output: 05/22/16 05/22/16 06:59 18:59 Intake Total 1250 Output Total 800 Balance 450 - Medications Medications: Current Medications Aspirin (Aspirin Chewable) 81 mg PEG DAILY [facility] Last Admin: 05/22/16 10:31 Dose: 81 mg Clopidogrel Bisulfate (Plavix) 75 mg PEG DAILY [facility] Last Admin: 05/22/16 10:32 Dose: 75 mg Enoxaparin Sodium (Lovenox) 40 mg SC DAILY [facility] Last Admin: 05/22/16 10:31 Dose: 40 mg Famotidine (Pepcid) 20 mg PEG BID [facility] Last Admin: 05/22/16 10:32 Dose: 20 mg Mupirocin (Bactroban Ointment) 0 gm TOP DAILY [facility] Last Admin: 05/22/16 10:32 Dose: 1 applic Oxybutynin Chloride (Ditropan Tab) 5 mg PEG TID [facility] Last Admin: 05/22/16 13:59 Dose: 5 mg Phenytoin (Dilantin) 100 mg PEG TID [facility] Last Admin: 05/22/16 13:59 Dose: 100 mg - Labs Labs: 05/22/16 08:18 05/22/16 08:18 PT 10.6 SECONDS (9.7-12.2) 11/24/15 14:10 INR 1.0 11/24/15 14:10 APTT 25 SECONDS (21-34) 11/24/15 14:10 Attending/Attestation - Attestation I have personally seen and examined this patient.: Yes I have fully participated in the care of the patient.: Yes I have reviewed all pertinent clinical information, including history, physical exam and plan: Yes
[2016-05-23] MEDS: Enoxaparin 40 mg Syringe SC SCH (10:04)
[2016-05-23] MEDS: Phenytoin 100 mg/4 ml Oral Susp UD PEG SCH ×3 (10:04→17:39)
--- NOTE | 2016-05-23 19:55 | CP.PCM.PN ---
<Mee Luciano - Last Filed: 05/23/16 19:52> Subjective - Date & Time of Evaluation Date of Evaluation: 05/23/16 Time of Evaluation: 10:00 - Subjective Subjective: Patient examined at bedside. Patient appears comfortable. Cannot obtain ROS as patient is nonverbal. Objective - Vital Signs/Intake and Output Vital Signs (last 24 hours): Temp Pulse Resp BP Pulse Ox 98.6 F 90 20 118/79 99 05/23/16 15:10 05/23/16 15:10 05/23/16 15:10 05/23/16 15:10 05/23/16 15:10 Intake and Output: 05/23/16 05/24/16 18:59 06:59 Intake Total 750 Output Total 300 Balance 450 - Medications Medications: Current Medications Aspirin (Aspirin Chewable) 81 mg PEG DAILY [facility] Last Admin: 05/23/16 10:04 Dose: 81 mg Clopidogrel Bisulfate (Plavix) 75 mg PEG DAILY [facility] Last Admin: 05/23/16 10:04 Dose: 75 mg Famotidine (Pepcid) 20 mg PEG BID [facility] Last Admin: 05/23/16 17:39 Dose: 20 mg Mupirocin (Bactroban Ointment) 0 gm TOP DAILY [facility] Last Admin: 05/23/16 10:05 Dose: 1 applic Oxybutynin Chloride (Ditropan Tab) 5 mg PEG TID [facility] Last Admin: 05/23/16 17:39 Dose: 5 mg Phenytoin (Dilantin) 100 mg PEG TID [facility] Last Admin: 05/23/16 17:39 Dose: 100 mg - Labs Labs: 05/22/16 08:18 05/22/16 08:18 PT 10.6 SECONDS (9.7-12.2) 11/24/15 14:10 INR 1.0 11/24/15 14:10 APTT 25 SECONDS (21-34) 11/24/15 14:10 - Constitutional Appears: Well, No Acute Distress - Head Exam Head Exam: NORMAL INSPECTION, NORMOCEPHALIC - Eye Exam Eye Exam: Normal appearance - ENT Exam ENT Exam: Mucous Membranes Moist Additional comments: thick white oral secretions - Neck Exam Additional comments: trach in place - Respiratory Exam Respiratory Exam: Clear to Ausculation Bilateral, NORMAL BREATHING PATTERN - Cardiovascular Exam Cardiovascular Exam: REGULAR RHYTHM, +S1, +S2 - GI/Abdominal Exam GI & Abdominal Exam: Soft, Normal Bowel Sounds - Exam Exam: NORMAL INSPECTION Additional comments: baker in place - Extremities Exam Extremities Exam: Normal Inspection - Neurological Exam Neurological Exam: Alert, Awake, Oriented x3 - Psychiatric Exam Psychiatric exam: Normal Affect, Normal Mood - Skin Skin Exam: Normal Color Assessment and Plan - Assessment and Plan (Free Text) Plan: 1) Anoxic encephalopathy 05/23/16: no acute changes Continue with PEG tube operational, tube feedings. PEG tube placed at bedside by Dr. Chan on 11/27/15. Labs on Mondays. CBC from 05/19 wnl. Pending placement (2) Respiratory Failure 05/23/16: Cont Trach care and suctioning. Stable. ID on case - Dr. Armstrong Sputum culture 12/06 + pseudomonas: probably colonization. No antibiotics per Dr. Armstrong tracheostomy with tube change by Dr. Chan on 11/27/15 (3) UTI resolved Baker catheter in place, draining clear yellow urine. Continue Ditropan 5mg PEG TID for leakage around catheter. Continue to monitor vital signs and wbc count (4) CAD (coronary artery disease) 05/23/16: Continue current management. stable. . Continue Lisinopril 5mg PEG daily Continue Plavix 75mg PEG daily Continue ASA 325mg PEG daily Cardiac stents on 06/13/15 (5) Seizures 05/23/16: Controlled on current treatment. Continue Dilantin 100mg PEG TID Seizure precautions. (6) Bed sore 05/23/16: Healed. continue wound care as needed, sensicare, and medihoney Sacral ulcer Stage II 0.5cm x 1.5cm- Healed. Continue repositioning of patient q2H. dolphin mattress. Heel air boots. (7) Prophylactic measure Lovenox 40 SC daily Pepcid 20 mg PEG BID compression boots <Donavan Hallman - Last Filed: 06/03/16 18:55> Objective - Vital Signs/Intake and Output Vital Signs (last 24 hours): Temp Pulse Resp BP Pulse Ox 98.6 F 92 H 20 119/77 98 06/03/16 15:00 06/03/16 15:59 06/03/16 15:00 06/03/16 15:00 06/03/16 15:00 Intake and Output: 06/03/16 06/03/16 06:59 18:59 Intake Total 1200 700 Output Total 1300 300 Balance -100 400 - Medications Medications: Current Medications Aspirin (Aspirin Chewable) 81 mg PEG DAILY [facility] Last Admin: 06/03/16 10:33 Dose: 81 mg Clopidogrel Bisulfate (Plavix) 75 mg PEG DAILY [facility] Last Admin: 06/03/16 10:33 Dose: 75 mg Enoxaparin Sodium (Lovenox) 40 mg SC DAILY [facility] Last Admin: 06/03/16 10:34 Dose: 40 mg Famotidine (Pepcid) 20 mg PEG BID [facility] Last Admin: 06/03/16 17:50 Dose: 20 mg Mupirocin (Bactroban Ointment) 0 gm TOP DAILY [facility] Last Admin: 06/03/16 10:35 Dose: 1 applic Oxybutynin Chloride (Ditropan Tab) 5 mg PEG TID [facility] Last Admin: 06/03/16 17:50 Dose: 5 mg Phenytoin (Dilantin) 100 mg PEG TID [facility] Last Admin: 06/03/16 17:50 Dose: 100 mg - Labs Labs: 06/02/16 07:00 06/02/16 07:00 PT 10.6 SECONDS (9.7-12.2) 11/24/15 14:10 INR 1.0 11/24/15 14:10 APTT 25 SECONDS (21-34) 11/24/15 14:10 Attending/Attestation - Attestation I have personally seen and examined this patient.: Yes I have fully participated in the care of the patient.: Yes I have reviewed all pertinent clinical information, including history, physical exam and plan: Yes Notes (Text): patient seen and examined with resident, agree with resident's evaluation, assessment and plan.
[2016-05-24] MEDS: Phenytoin 100 mg/4 ml Oral Susp UD PEG SCH ×3 (09:39→17:47)
--- NOTE | 2016-05-24 16:20 | CP.PCM.PN ---
<RioNely - Last Filed: 05/24/16 16:16> Subjective - Date & Time of Evaluation Date of Evaluation: 05/24/16 Time of Evaluation: 16:16 - Subjective Subjective: Medicine Progress Note Patient seen and examined. No acute change in clinical condition. Patient not responsive to commands. ROS could not be obtained due to clinical condition. Trach in place. Baker catheter in place draining yellow urine. PEG tube in place in anterior abdomen. Objective - Vital Signs/Intake and Output Vital Signs (last 24 hours): Temp Pulse Resp BP Pulse Ox 98.5 F 76 20 128/82 100 05/24/16 08:19 05/24/16 08:19 05/24/16 08:19 05/24/16 08:19 05/24/16 08:19 Intake and Output: 05/24/16 05/24/16 06:59 18:59 Intake Total 1350 500 Output Total 1800 400 Balance -450 100 - Medications Medications: Current Medications Aspirin (Aspirin Chewable) 81 mg PEG DAILY [facility] Last Admin: 05/24/16 09:38 Dose: 81 mg Clopidogrel Bisulfate (Plavix) 75 mg PEG DAILY [facility] Last Admin: 05/24/16 09:43 Dose: 75 mg Famotidine (Pepcid) 20 mg PEG BID [facility] Last Admin: 05/24/16 09:40 Dose: 20 mg Mupirocin (Bactroban Ointment) 0 gm TOP DAILY [facility] Last Admin: 05/24/16 09:41 Dose: 1 applic Oxybutynin Chloride (Ditropan Tab) 5 mg PEG TID [facility] Last Admin: 05/24/16 13:19 Dose: 5 mg Phenytoin (Dilantin) 100 mg PEG TID [facility] Last Admin: 05/24/16 13:18 Dose: 100 mg - Labs Labs: 05/22/16 08:18 05/22/16 08:18 PT 10.6 SECONDS (9.7-12.2) 11/24/15 14:10 INR 1.0 11/24/15 14:10 APTT 25 SECONDS (21-34) 11/24/15 14:10 - Additional Findings Additional findings: - Constitutional Appears: Well, No Acute Distress - Head Exam Head Exam: NORMAL INSPECTION, NORMOCEPHALIC - Eye Exam Eye Exam: Normal appearance - ENT Exam ENT Exam: Mucous Membranes Moist - Neck Exam Additional comments: trach in place - Respiratory Exam Respiratory Exam: Clear to Ausculation Bilateral, NORMAL BREATHING PATTERN - Cardiovascular Exam Cardiovascular Exam: REGULAR RHYTHM, +S1, +S2 - GI/Abdominal Exam GI & Abdominal Exam: Soft, Normal Bowel Sounds PEG tube in place - Exam Exam: NORMAL INSPECTION Additional comments: baker in place - Extremities Exam Extremities Exam: Normal Inspection - Neurological Exam Neurological Exam: Alert, Awake, Oriented x3 - Psychiatric Exam Psychiatric exam: Normal Affect, Normal Mood - Skin Skin Exam: Normal Color healed stage 3 sacral ulcer Assessment and Plan - Assessment and Plan (Free Text) Assessment: 1) Anoxic encephalopathy 05/24/16: no acute changes Continue with PEG tube operational, tube feedings. PEG tube placed at bedside by Dr. Chan on 11/27/15. Labs on Mondays. CBC from 05/22 within normal limits. Pending placement (2) Respiratory Failure 05/24/16: Cont Trach care and suctioning. Stable. ID on case - Dr. Armstrong Sputum culture 12/06 + pseudomonas: probably colonization. No antibiotics per Dr. Armstrong tracheostomy with tube change by Dr. Chan on 11/27/15 (3) UTI resolved Baker catheter in place, draining clear yellow urine. Continue Ditropan 5mg PEG TID for leakage around catheter. Continue to monitor vital signs and wbc count (4) CAD (coronary artery disease) 05/24/16: Continue current management. stable. Continue Lisinopril 5mg PEG daily Continue Plavix 75mg PEG daily Continue ASA 325mg PEG daily Cardiac stents on 06/13/15 (5) Seizures 05/24/16: Controlled on current treatment. Continue Dilantin 100mg PEG TID Seizure precautions. (6) Bed sore 05/24/16: Healed. continue wound care as needed, sensicare, and medihoney Sacral ulcer Stage II 0.5cm x 1.5cm- Healed. Continue repositioning of patient q2H. dolphin mattress. Heel air boots. (7) Prophylactic measure Lovenox 40 SC daily Pepcid 20 mg PEG BID compression boots <Donavan Hallman - Last Filed: 06/03/16 19:03> Objective - Vital Signs/Intake and Output Vital Signs (last 24 hours): Temp Pulse Resp BP Pulse Ox 98.6 F 92 H 20 119/77 98 07/12/16 15:00 06/03/16 15:59 06/03/16 15:00 06/03/16 15:00 06/03/16 15:00 Intake and Output: 06/03/16 06/04/16 18:59 06:59 Intake Total 700 Output Total 300 Balance 400 - Medications Medications: Current Medications Aspirin (Aspirin Chewable) 81 mg PEG DAILY [facility] Last Admin: 06/03/16 10:33 Dose: 81 mg Clopidogrel Bisulfate (Plavix) 75 mg PEG DAILY [facility] Last Admin: 06/03/16 10:33 Dose: 75 mg Enoxaparin Sodium (Lovenox) 40 mg SC DAILY [facility] Last Admin: 06/03/16 10:34 Dose: 40 mg Famotidine (Pepcid) 20 mg PEG BID [facility] Last Admin: 06/03/16 17:50 Dose: 20 mg Mupirocin (Bactroban Ointment) 0 gm TOP DAILY [facility] Last Admin: 06/03/16 10:35 Dose: 1 applic Oxybutynin Chloride (Ditropan Tab) 5 mg PEG TID [facility] Last Admin: 06/03/16 17:50 Dose: 5 mg Phenytoin (Dilantin) 100 mg PEG TID [facility] Last Admin: 06/03/16 17:50 Dose: 100 mg - Labs Labs: 06/02/16 07:00 06/02/16 07:00 PT 10.6 SECONDS (9.7-12.2) 11/24/15 14:10 INR 1.0 11/24/15 14:10 APTT 25 SECONDS (21-34) 11/24/15 14:10 Attending/Attestation - Attestation I have personally seen and examined this patient.: Yes I have fully participated in the care of the patient.: Yes I have reviewed all pertinent clinical information, including history, physical exam and plan: Yes Notes (Text): patient seen and examined with resident, agree with resident's evaluation, assessment and plan.
--- NOTE | 2016-05-25 01:45 | CP.PCM.PN ---
Subjective - Date & Time of Evaluation Date of Evaluation: 05/25/16 Time of Evaluation: 00:30 - Subjective Subjective: Patient seen and examined after midnight. Patient was very lethargic and could not follow simple commands. Objective - Vital Signs/Intake and Output Vital Signs (last 24 hours): Temp Pulse Resp BP Pulse Ox 98.5 F 85 20 118/83 98 05/24/16 23:21 05/24/16 23:21 05/24/16 23:21 05/24/16 23:21 05/24/16 23:21 Intake and Output: 05/24/16 05/25/16 18:59 06:59 Intake Total 500 700 Output Total 400 1300 Balance 100 -600 - Medications Medications: Current Medications Aspirin (Aspirin Chewable) 81 mg PEG DAILY [facility] Last Admin: 05/24/16 09:38 Dose: 81 mg Clopidogrel Bisulfate (Plavix) 75 mg PEG DAILY [facility] Last Admin: 05/24/16 09:43 Dose: 75 mg Famotidine (Pepcid) 20 mg PEG BID [facility] Last Admin: 05/24/16 17:47 Dose: 20 mg Mupirocin (Bactroban Ointment) 0 gm TOP DAILY [facility] Last Admin: 05/24/16 09:41 Dose: 1 applic Oxybutynin Chloride (Ditropan Tab) 5 mg PEG TID [facility] Last Admin: 05/24/16 17:47 Dose: 5 mg Phenytoin (Dilantin) 100 mg PEG TID [facility] Last Admin: 05/24/16 17:47 Dose: 100 mg - Labs Labs: 05/22/16 08:18 05/22/16 08:18 PT 10.6 SECONDS (9.7-12.2) 11/24/15 14:10 INR 1.0 11/24/15 14:10 APTT 25 SECONDS (21-34) 11/24/15 14:10
[2016-05-25] MEDS: Phenytoin 100 mg/4 ml Oral Susp UD PEG SCH ×3 (09:22→17:23)
--- NOTE | 2016-05-25 12:01 | CP.PCM.PN ---
Subjective - Date & Time of Evaluation Date of Evaluation: 05/25/16 Time of Evaluation: 11:53 - Subjective Subjective: Medical Attending Note: Patient seen and examined by me. Patient opens eyes. Does not follow commands. Patient is nonverbal. Does not have any purposeful movements. Patient is afebrile. Unable to obtain review of systems from patient. Objective - Vital Signs/Intake and Output Vital Signs (last 24 hours): Temp Pulse Resp BP Pulse Ox 98.8 F 66 20 136/82 100 05/25/16 07:52 05/25/16 07:52 05/25/16 07:52 05/25/16 07:52 05/25/16 07:52 Intake and Output: 05/25/16 05/25/16 06:59 18:59 Intake Total 1350 Output Total 1600 Balance -250 - Medications Medications: Current Medications Aspirin (Aspirin Chewable) 81 mg PEG DAILY [facility] Last Admin: 05/25/16 09:22 Dose: 81 mg Clopidogrel Bisulfate (Plavix) 75 mg PEG DAILY [facility] Last Admin: 05/25/16 09:22 Dose: 75 mg Famotidine (Pepcid) 20 mg PEG BID [facility] Last Admin: 05/25/16 09:22 Dose: 20 mg Mupirocin (Bactroban Ointment) 0 gm TOP DAILY [facility] Last Admin: 05/24/16 09:41 Dose: 1 applic Oxybutynin Chloride (Ditropan Tab) 5 mg PEG TID [facility] Last Admin: 05/25/16 09:22 Dose: 5 mg Phenytoin (Dilantin) 100 mg PEG TID [facility] Last Admin: 05/25/16 09:22 Dose: 100 mg - Labs Labs: 05/22/16 08:18 05/22/16 08:18 PT 10.6 SECONDS (9.7-12.2) 11/24/15 14:10 INR 1.0 11/24/15 14:10 APTT 25 SECONDS (21-34) 11/24/15 14:10 - Constitutional Appears: No Acute Distress - Head Exam Head Exam: ATRAUMATIC, NORMOCEPHALIC - Eye Exam Eye Exam: absent: Scleral icterus - ENT Exam ENT Exam: Mucous Membranes Moist - Respiratory Exam Respiratory Exam: NORMAL BREATHING PATTERN. absent: Rales, Rhonchi, Wheezes Additional comments: auscultated anteriorly patient does not follow commands and does not take in deep breaths when asked to - Cardiovascular Exam Cardiovascular Exam: REGULAR RHYTHM, +S1, +S2. absent: Gallop, Rubs - GI/Abdominal Exam GI & Abdominal Exam: Soft. absent: Distended, Guarding Additional comments: PEG tube in place with no surrounding erythema or drainage - Extremities Exam Extremities Exam: Pedal Edema (bilateral lower extremities) Additional comments: pedal pulses intact - Neurological Exam Additional comments: patient opens eyes, does not follow commands, nonverbal, no purposeful movements - Skin Skin Exam: Dry, Warm Assessment and Plan (1) Anoxic encephalopathy Assessment & Plan: No change in mental status Patient with PEG and Trach Continue with PEG feeds and suctioning Pending placement Status: Acute (2) Respiratory failure Assessment & Plan: Continue with trach care and suctioning as needed NO new changes Monitor Status: Acute (3) UTI (lower urinary tract infection) Assessment & Plan: Resolved Yoo catheter in place Continue Ditropan 5mg via PEG TID Monitor Status: Acute (4) CAD (coronary artery disease) Assessment & Plan: s/p cardiac stents on 06/13/15 Continue ASA 81mg via PEG daily Continue Plavix 75mg via PEG daily Status: Acute (5) Seizures Assessment & Plan: Continue Dilantin 100mg via PEG TID Continue seizure precautions Monitor Status: Acute (6) Bed sore Assessment & Plan: Resolved Continue to turn patient q2hrs Monitor with skin checks Status: Acute (7) Prophylactic measure Assessment & Plan: Lovenox 40mg SC daily Pepcid 20mg via PEG BID Status: Acute Attending/Attestation - Attestation I have personally seen and examined this patient.: Yes I have fully participated in the care of the patient.: Yes I have reviewed all pertinent clinical information, including history, physical exam and plan: Yes
[2016-05-25] MEDS: Enoxaparin 40 mg Syringe SC SCH (13:34)
--- NOTE | 2016-05-26 05:02 | CP.PCM.PN ---
<Joel Lin H - Last Filed: 05/26/16 06:08> Subjective - Date & Time of Evaluation Date of Evaluation: 05/26/16 Time of Evaluation: 06:30 - Subjective Subjective: Patient is seen in room, he is non verbal. He also does not obey commands and has some non purposeful movement. Objective - Vital Signs/Intake and Output Vital Signs (last 24 hours): Temp Pulse Resp BP Pulse Ox 98.7 F 83 20 121/83 98 05/25/16 23:54 05/25/16 23:54 05/25/16 23:54 05/25/16 23:54 05/25/16 23:54 Intake and Output: 05/25/16 05/26/16 18:59 06:59 Intake Total 500 750 Output Total 700 Balance 500 50 - Medications Medications: Current Medications Aspirin (Aspirin Chewable) 81 mg PEG DAILY [facility] Last Admin: 05/25/16 09:22 Dose: 81 mg Clopidogrel Bisulfate (Plavix) 75 mg PEG DAILY [facility] Last Admin: 05/25/16 09:22 Dose: 75 mg Enoxaparin Sodium (Lovenox) 40 mg SC DAILY [facility] Last Admin: 05/25/16 13:34 Dose: 40 mg Famotidine (Pepcid) 20 mg PEG BID [facility] Last Admin: 05/25/16 17:23 Dose: 20 mg Mupirocin (Bactroban Ointment) 0 gm TOP DAILY [facility] Last Admin: 05/25/16 13:48 Dose: 1 applic Oxybutynin Chloride (Ditropan Tab) 5 mg PEG TID [facility] Last Admin: 05/25/16 17:23 Dose: 5 mg Phenytoin (Dilantin) 100 mg PEG TID [facility] Last Admin: 05/25/16 17:23 Dose: 100 mg - Labs Labs: 05/22/16 08:18 05/22/16 08:18 PT 10.6 SECONDS (9.7-12.2) 11/24/15 14:10 INR 1.0 11/24/15 14:10 APTT 25 SECONDS (21-34) 11/24/15 14:10 - Head Exam Head Exam: ATRAUMATIC, NORMAL INSPECTION, NORMOCEPHALIC - Eye Exam Eye Exam: Normal appearance Pupil Exam: NORMAL ACCOMODATION - ENT Exam ENT Exam: Normal Exam - Neck Exam Neck Exam: Normal Inspection - Respiratory Exam Respiratory Exam: Clear to Ausculation Bilateral. absent: Rales, Rhonchi, Wheezes - Cardiovascular Exam Cardiovascular Exam: REGULAR RHYTHM, RRR, +S1, +S2. absent: Gallop, Rubs - GI/Abdominal Exam GI & Abdominal Exam: Soft. absent: Normal Bowel Sounds - Skin Skin Exam: Diaphoretic, Intact Assessment and Plan - Assessment and Plan (Free Text) Assessment: (1) Anoxic encephalopathy Assessment & Plan: 05/26: No change in mental status, peg and trach well tolerated. Previous note: No change in mental status Patient with PEG and Trach Continue with PEG feeds and suctioning Pending placement Status: Acute (2) Respiratory failure Assessment & Plan: 05/26: No change, continue trach care and suctioning as needed. Previous note: Continue with trach care and suctioning as needed NO new changes Monitor Status: Acute (3) UTI (lower urinary tract infection) Assessment & Plan: Resolved Yoo catheter in place Continue Ditropan 5mg via PEG TID Monitor Status: Acute (4) CAD (coronary artery disease) Assessment & Plan: s/p cardiac stents on 06/13/15 Continue ASA 81mg via PEG daily Continue Plavix 75mg via PEG daily Status: Acute (5) Seizures Assessment & Plan: Continue Dilantin 100mg via PEG TID Continue seizure precautions Monitor Status: Acute (6) Bed sore Assessment & Plan: Resolved Continue to turn patient q2hrs Monitor with skin checks Status: Acute (7) Prophylactic measure Assessment & Plan: Lovenox 40mg SC daily Pepcid 20mg via PEG BID Status: Acute <Donnell Ying M - Last Filed: 05/26/16 17:41> Objective - Vital Signs/Intake and Output Vital Signs (last 24 hours): Temp Pulse Resp BP Pulse Ox 98.5 F 91 H 19 128/85 99 05/26/16 15:00 05/26/16 16:16 05/26/16 15:00 05/26/16 15:00 05/26/16 15:00 Intake and Output: 05/26/16 05/26/16 06:59 18:59 Intake Total 1400 1000 Output Total 1050 800 Balance 350 200 - Medications Medications: Current Medications Aspirin (Aspirin Chewable) 81 mg PEG DAILY [facility] Last Admin: 05/26/16 09:31 Dose: 81 mg Clopidogrel Bisulfate (Plavix) 75 mg PEG DAILY [facility] Last Admin: 05/26/16 09:31 Dose: 75 mg Enoxaparin Sodium (Lovenox) 40 mg SC DAILY [facility] Last Admin: 05/26/16 09:32 Dose: 40 mg Famotidine (Pepcid) 20 mg PEG BID [facility] Last Admin: 05/26/16 17:19 Dose: 20 mg Mupirocin (Bactroban Ointment) 0 gm TOP DAILY [facility] Last Admin: 05/26/16 10:00 Dose: 1 applic Oxybutynin Chloride (Ditropan Tab) 5 mg PEG TID [facility] Last Admin: 05/26/16 17:19 Dose: 5 mg Phenytoin (Dilantin) 100 mg PEG TID [facility] Last Admin: 05/26/16 17:19 Dose: 100 mg - Labs Labs: 05/26/16 08:19 05/26/16 08:19 PT 10.6 SECONDS (9.7-12.2) 11/24/15 14:10 INR 1.0 11/24/15 14:10 APTT 25 SECONDS (21-34) 11/24/15 14:10 Attending/Attestation - Attestation I have personally seen and examined this patient.: Yes I have fully participated in the care of the patient.: Yes I have reviewed all pertinent clinical information, including history, physical exam and plan: Yes Notes (Text): 05/26/16 17:41 Patient was seen and examined at bedside. No change in clinical condition. Continue local care of the tracheostomy site and PEG site. Turn and position every 2 hours.
[2016-05-26 08:34] LABS: BASO % 0.3 % (0.0-2.0); EOS # 0.5 K/uL (0.0-0.7); EOS % 4.8 % (0.0-4.0); HEMOGLOBIN 12.1 g/dL (12.0-18.0); LYMPH # 2.2 K/uL (1.0-4.3); LYMPH % 21.8 % (20.0-40.0); MEAN CELL VOLUME 92.4 fL (80.0-94.0); MEAN CORPUSCULAR HEMOGLOBIN 30.8 pg (27.0-31.0); MEAN CORPUSCULAR HGB CONC 33.3 g/dL (33.0-37.0); MEAN PLATELET VOLUME 8.3 fL (7.2-11.7); MONO # 0.9 K/uL (0.0-0.8); MONO % 9.1 % (0.0-10.0); NEUT # 6.3 K/uL (1.8-7.0); NRBC % 0.1 % (0.0-2.0); RBC 3.92 Mil/uL (4.40-5.90); RED CELL DISTRIBUTION WIDTH 13.9 % (11.5-14.5); WHITE BLOOD COUNT 9.9 K/uL (4.8-10.8)
[2016-05-26 08:59] LABS: ALBUMIN 3.2 g/dL (3.5-5.0)
[2016-05-26 09:01] LABS: ALB/GLOB RATIO 0.9 (1.0-2.1); AST/SGOT 24 U/L (17-59); GFR NON-AFRICAN AMERICAN > 60
[2016-05-26 09:02] LABS: ALT/SGPT 48 U/L (21-72); BLOOD UREA NITROGEN 23 mg/dL (9-20); CALCIUM 8.8 mg/dl (8.6-10.4)
[2016-05-26] MEDS: Enoxaparin 40 mg Syringe SC SCH (09:32)
[2016-05-26] MEDS: Phenytoin 100 mg/4 ml Oral Susp UD PEG SCH ×2 (09:32→17:19)
[2016-05-27] MEDS: Enoxaparin 40 mg Syringe SC SCH (11:16)
[2016-05-27] MEDS: Phenytoin 100 mg/4 ml Oral Susp UD PEG SCH ×3 (11:17→17:16)
--- NOTE | 2016-05-27 12:41 | CP.PCM.PN ---
<Drake Alicea - Last Filed: 05/27/16 15:17> Subjective - Date & Time of Evaluation Date of Evaluation: 05/27/16 Time of Evaluation: 08:00 - Subjective Subjective: Patient was evaluated in room. He is awake but not responsive to questions or commands and lacks purposeful movements. He appears comfortable and in no distress. Objective - Vital Signs/Intake and Output Vital Signs (last 24 hours): Temp Pulse Resp BP Pulse Ox 98.2 F 77 20 133/77 98 05/27/16 08:00 05/27/16 08:00 05/27/16 08:00 05/27/16 08:00 05/27/16 08:00 Intake and Output: 05/27/16 05/27/16 06:59 18:59 Intake Total 750 600 Output Total 300 Balance 750 300 - Medications Medications: Current Medications Aspirin (Aspirin Chewable) 81 mg PEG DAILY [facility] Last Admin: 05/27/16 11:18 Dose: 81 mg Clopidogrel Bisulfate (Plavix) 75 mg PEG DAILY [facility] Last Admin: 05/27/16 11:18 Dose: 75 mg Enoxaparin Sodium (Lovenox) 40 mg SC DAILY [facility] Last Admin: 05/27/16 11:16 Dose: 40 mg Famotidine (Pepcid) 20 mg PEG BID [facility] Last Admin: 05/27/16 11:20 Dose: 20 mg Mupirocin (Bactroban Ointment) 0 gm TOP DAILY [facility] Last Admin: 05/27/16 11:19 Dose: 1 applic Oxybutynin Chloride (Ditropan Tab) 5 mg PEG TID [facility] Last Admin: 05/27/16 11:18 Dose: 5 mg Phenytoin (Dilantin) 100 mg PEG TID [facility] Last Admin: 05/27/16 11:17 Dose: 100 mg - Labs Labs: 05/26/16 08:19 05/26/16 08:19 PT 10.6 SECONDS (9.7-12.2) 11/24/15 14:10 INR 1.0 11/24/15 14:10 APTT 25 SECONDS (21-34) 11/24/15 14:10 - Constitutional Appears: No Acute Distress - Head Exam Head Exam: ATRAUMATIC - Eye Exam Eye Exam: Normal appearance Pupil Exam: Unequal (Right more sluggish than left) - ENT Exam ENT Exam: Mucous Membranes Moist - Neck Exam Neck Exam: Normal Inspection - Respiratory Exam Respiratory Exam: Clear to Ausculation Bilateral, NORMAL BREATHING PATTERN - Cardiovascular Exam Cardiovascular Exam: REGULAR RHYTHM, RRR - GI/Abdominal Exam GI & Abdominal Exam: Soft, Normal Bowel Sounds - Neurological Exam Neurological Exam: Awake - Skin Skin Exam: Normal Color, Warm Assessment and Plan - Assessment and Plan (Free Text) Assessment: 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 continue peg and trach maintenance monitor for changes pending placement 2)Respiratory failure- No change continue trach maintenance continue to monitor for changes 3)Coronary artery disease- continue ASA 81 mg via peg continue plavix 75mg via peg 4)Seizures- continue Dilatin 100mg seizure precautions monitor 5)Prophylactic Measures continue Lovenox 40mg SC contiue Pepcid 20 mg via peg BID <Donnell Ying - Last Filed: 05/27/16 18:23> Objective - Vital Signs/Intake and Output Vital Signs (last 24 hours): Temp Pulse Resp BP Pulse Ox 98.4 F 82 20 114/73 100 05/27/16 16:10 05/27/16 16:34 05/27/16 16:10 05/27/16 16:10 05/27/16 16:10 Intake and Output: 05/27/16 05/27/16 06:59 18:59 Intake Total 750 1050 Output Total 600 Balance 750 450 - Medications Medications: Current Medications Aspirin (Aspirin Chewable) 81 mg PEG DAILY [facility] Last Admin: 05/27/16 11:18 Dose: 81 mg Clopidogrel Bisulfate (Plavix) 75 mg PEG DAILY [facility] Last Admin: 05/27/16 11:18 Dose: 75 mg Enoxaparin Sodium (Lovenox) 40 mg SC DAILY [facility] Last Admin: 05/27/16 11:16 Dose: 40 mg Famotidine (Pepcid) 20 mg PEG BID [facility] Last Admin: 05/27/16 17:15 Dose: 20 mg Mupirocin (Bactroban Ointment) 0 gm TOP DAILY [facility] Last Admin: 05/27/16 11:19 Dose: 1 applic Oxybutynin Chloride (Ditropan Tab) 5 mg PEG TID [facility] Last Admin: 05/27/16 17:16 Dose: 5 mg Phenytoin (Dilantin) 100 mg PEG TID [facility] Last Admin: 05/27/16 17:16 Dose: 100 mg - Labs Labs: 05/26/16 08:19 05/26/16 08:19 PT 10.6 SECONDS (9.7-12.2) 11/24/15 14:10 INR 1.0 11/24/15 14:10 APTT 25 SECONDS (21-34) 11/24/15 14:10 Attending/Attestation - Attestation I have personally seen and examined this patient.: Yes I have fully participated in the care of the patient.: Yes I have reviewed all pertinent clinical information, including history, physical exam and plan: Yes Notes (Text): 05/27/16 18:21 Patient was seen and examined at bedside. Patient is completely anoxic. Opens eyes spontaneously but does not respond to any verbal stimuli We will continue current management. Position and turn every 2 hours Continue current management.
[2016-05-28 07:58] LABS: ALBUMIN 3.1 g/dL (3.5-5.0)
[2016-05-28 08:01] LABS: ALB/GLOB RATIO 0.8 (1.0-2.1); AST/SGOT 21 U/L (17-59); GFR NON-AFRICAN AMERICAN > 60
[2016-05-28 08:02] LABS: ALT/SGPT 43 U/L (21-72); BLOOD UREA NITROGEN 18 mg/dL (9-20); CALCIUM 8.3 mg/dl (8.6-10.4)
[2016-05-28] MEDS: Phenytoin 100 mg/4 ml Oral Susp UD PEG SCH ×3 (09:33→17:49)
[2016-05-28] MEDS: Enoxaparin 40 mg Syringe SC SCH (09:34)
--- NOTE | 2016-05-28 20:22 | CP.PCM.PN ---
Subjective - Date & Time of Evaluation Date of Evaluation: 05/28/16 Time of Evaluation: 10:00 - Subjective Subjective: patient was seen and examined at bedside no change in clinical condition. Objective - Vital Signs/Intake and Output Vital Signs (last 24 hours): Temp Pulse Resp BP Pulse Ox 98.2 F 77 20 111/76 98 05/28/16 16:19 05/28/16 16:53 05/28/16 16:19 05/28/16 16:19 05/28/16 16:19 Intake and Output: 05/28/16 05/29/16 18:59 06:59 Intake Total 750 Output Total 400 Balance 350 - Medications Medications: Current Medications Aspirin (Aspirin Chewable) 81 mg PEG DAILY [facility] Last Admin: 05/28/16 09:33 Dose: 81 mg Clopidogrel Bisulfate (Plavix) 75 mg PEG DAILY [facility] Last Admin: 05/28/16 09:33 Dose: 75 mg Enoxaparin Sodium (Lovenox) 40 mg SC DAILY [facility] Last Admin: 05/28/16 09:34 Dose: 40 mg Famotidine (Pepcid) 20 mg PEG BID [facility] Last Admin: 05/28/16 17:48 Dose: 20 mg Mupirocin (Bactroban Ointment) 0 gm TOP DAILY [facility] Last Admin: 05/28/16 09:34 Dose: 1 applic Oxybutynin Chloride (Ditropan Tab) 5 mg PEG TID [facility] Last Admin: 05/28/16 17:50 Dose: 5 mg Phenytoin (Dilantin) 100 mg PEG TID [facility] Last Admin: 05/28/16 17:49 Dose: 100 mg - Labs Labs: 05/26/16 08:19 05/28/16 07:28 PT 10.6 SECONDS (9.7-12.2) 11/24/15 14:10 INR 1.0 11/24/15 14:10 APTT 25 SECONDS (21-34) 11/24/15 14:10 - Head Exam Head Exam: ATRAUMATIC, NORMOCEPHALIC - Eye Exam Eye Exam: absent: Scleral icterus - Respiratory Exam Respiratory Exam: Clear to Ausculation Bilateral. absent: Rhonchi, Wheezes - Cardiovascular Exam Cardiovascular Exam: REGULAR RHYTHM, +S1, +S2 - GI/Abdominal Exam GI & Abdominal Exam: Soft. absent: Tenderness Additional comments: PEG in place - Extremities Exam Extremities Exam: absent: Pedal Edema - Neurological Exam Additional comments: patient is anoxic Assessment and Plan - Assessment and Plan (Free Text) Assessment: (1) Anoxic encephalopathy Assessment & Plan: 05/29: patient continues to open eyes to touch inconsistently; peg and trach well tolerated. continue with therapy and turning patient q2h Previous note: Continue with PEG feeds and suctioning of trach Pending placement Status: Acute (2) Respiratory failure Assessment & Plan: 05/28: Continue trach care and suctioning as needed. Previous note: Continue with trach care and suctioning as needed NO new changes Monitor Status: Acute (3) UTI (lower urinary tract infection) Assessment & Plan: Resolved Yoo catheter in place Continue Ditropan 5mg via PEG TID Monitor Status: Acute (4) CAD (coronary artery disease) Assessment & Plan: s/p cardiac stents on 06/13/15 Continue ASA 81mg via PEG daily Continue Plavix 75mg via PEG daily Status: Acute (5) Seizures Assessment & Plan: Continue Dilantin 100mg via PEG TID Continue seizure precautions Monitor Status: Acute (6) Bed sore Assessment & Plan: Resolved Continue to turn patient q2hrs Monitor with skin checks Status: Acute (7) Prophylactic measure Assessment & Plan: Lovenox 40mg SC daily Pepcid 20mg via PEG BID Status: Acute
[2016-05-29 08:57] LABS: BASO % 0.3 % (0.0-2.0); EOS # 0.5 K/uL (0.0-0.7); EOS % 4.6 % (0.0-4.0); HEMOGLOBIN 11.9 g/dL (12.0-18.0); LYMPH # 2.1 K/uL (1.0-4.3); LYMPH % 19.9 % (20.0-40.0); MEAN CELL VOLUME 93.2 fL (80.0-94.0); MEAN CORPUSCULAR HEMOGLOBIN 30.6 pg (27.0-31.0); MEAN CORPUSCULAR HGB CONC 32.8 g/dL (33.0-37.0); MEAN PLATELET VOLUME 8.6 fL (7.2-11.7); MONO # 1.2 K/uL (0.0-0.8); NEUT # 6.7 K/uL (1.8-7.0); NEUT % 64.2 % (50.0-75.0); RBC 3.87 Mil/uL (4.40-5.90); RED CELL DISTRIBUTION WIDTH 13.9 % (11.5-14.5); WHITE BLOOD COUNT 10.5 K/uL (4.8-10.8)
[2016-05-29] MEDS: Enoxaparin 40 mg Syringe SC SCH (09:15)
[2016-05-29] MEDS: Phenytoin 100 mg/4 ml Oral Susp UD PEG SCH ×4 (09:15→17:22)
--- NOTE | 2016-05-29 09:51 | CP.PCM.PN ---
<Merrick Heck - Last Filed: 05/29/16 15:00> Subjective - Date & Time of Evaluation Date of Evaluation: 05/29/16 Time of Evaluation: 09:15 - Subjective Subjective: PGY3 resident note Patient seen and examined at bedside this AM. No acute changes - opens eyes to touch intermittently; still aphasic. No acute events overnight per nursing. Objective - Vital Signs/Intake and Output Vital Signs (last 24 hours): Temp Pulse Resp BP Pulse Ox 98.7 F 85 20 121/70 100 05/29/16 07:29 05/29/16 07:29 05/29/16 07:29 05/29/16 07:29 05/29/16 07:29 Intake and Output: 05/29/16 05/29/16 06:59 18:59 Intake Total 1450 Output Total 900 Balance 550 - Medications Medications: Current Medications Aspirin (Aspirin Chewable) 81 mg PEG DAILY [facility] Last Admin: 05/29/16 09:15 Dose: 81 mg Clopidogrel Bisulfate (Plavix) 75 mg PEG DAILY [facility] Last Admin: 05/29/16 09:15 Dose: 75 mg Enoxaparin Sodium (Lovenox) 40 mg SC DAILY [facility] Last Admin: 05/29/16 09:15 Dose: 40 mg Famotidine (Pepcid) 20 mg PEG BID [facility] Last Admin: 05/29/16 09:15 Dose: 20 mg Mupirocin (Bactroban Ointment) 0 gm TOP DAILY [facility] Last Admin: 05/29/16 09:15 Dose: 1 applic Oxybutynin Chloride (Ditropan Tab) 5 mg PEG TID [facility] Last Admin: 05/29/16 09:15 Dose: 5 mg Phenytoin (Dilantin) 100 mg PEG TID [facility] Last Admin: 05/29/16 09:15 Dose: 100 mg - Labs Labs: 05/29/16 08:35 05/28/16 07:28 PT 10.6 SECONDS (9.7-12.2) 11/24/15 14:10 INR 1.0 11/24/15 14:10 APTT 25 SECONDS (21-34) 11/24/15 14:10 - Constitutional Appears: No Acute Distress, Chronically Ill - Eye Exam Eye Exam: PERRL - ENT Exam ENT Exam: Mucous Membranes Moist (oral mucosa moist, but lips are dry) - Respiratory Exam Respiratory Exam: Clear to Ausculation Bilateral, NORMAL BREATHING PATTERN Additional comments: trach site clean and dry - Cardiovascular Exam Cardiovascular Exam: REGULAR RHYTHM, RRR - GI/Abdominal Exam GI & Abdominal Exam: Soft, Normal Bowel Sounds Additional comments: PEG site c/d/i - Extremities Exam Additional comments: extended feet, +1 pitting edema bilaterally - Neurological Exam Neurological Exam: absent: Awake Assessment and Plan - Assessment and Plan (Free Text) Assessment: (1) Anoxic encephalopathy Assessment & Plan: 05/29: patient continues to open eyes to touch inconsistently; peg and trach well tolerated. continue with therapy and turning patient q2h Previous note: Continue with PEG feeds and suctioning of trach Pending placement Status: Acute (2) Respiratory failure Assessment & Plan: 05/29: Continue trach care and suctioning as needed. Previous note: Continue with trach care and suctioning as needed NO new changes Monitor Status: Acute (3) UTI (lower urinary tract infection) Assessment & Plan: Resolved Yoo catheter in place Continue Ditropan 5mg via PEG TID Monitor Status: Acute (4) CAD (coronary artery disease) Assessment & Plan: s/p cardiac stents on 06/13/15 Continue ASA 81mg via PEG daily Continue Plavix 75mg via PEG daily Status: Acute (5) Seizures Assessment & Plan: Continue Dilantin 100mg via PEG TID Continue seizure precautions Monitor Status: Acute (6) Bed sore Assessment & Plan: Resolved Continue to turn patient q2hrs Monitor with skin checks Status: Acute (7) Prophylactic measure Assessment & Plan: Lovenox 40mg SC daily Pepcid 20mg via PEG BID Status: Acute <Donnell Ying M - Last Filed: 05/29/16 22:03> Objective - Vital Signs/Intake and Output Vital Signs (last 24 hours): Temp Pulse Resp BP Pulse Ox 98.6 F 82 20 125/84 99 05/29/16 15:38 05/29/16 20:05 05/29/16 15:38 05/29/16 15:38 05/29/16 15:38 Intake and Output: 05/29/16 05/30/16 18:59 06:59 Intake Total 250 Balance 250 - Medications Medications: Current Medications Aspirin (Aspirin Chewable) 81 mg PEG DAILY [facility] Last Admin: 05/29/16 09:15 Dose: 81 mg Clopidogrel Bisulfate (Plavix) 75 mg PEG DAILY [facility] Last Admin: 05/29/16 09:15 Dose: 75 mg Enoxaparin Sodium (Lovenox) 40 mg SC DAILY [facility] Last Admin: 05/29/16 09:15 Dose: 40 mg Famotidine (Pepcid) 20 mg PEG BID [facility] Last Admin: 05/29/16 17:22 Dose: 20 mg Mupirocin (Bactroban Ointment) 0 gm TOP DAILY [facility] Last Admin: 05/29/16 09:15 Dose: 1 applic Oxybutynin Chloride (Ditropan Tab) 5 mg PEG TID [facility] Last Admin: 05/29/16 17:22 Dose: 5 mg Phenytoin (Dilantin) 100 mg PEG TID [facility] Last Admin: 05/29/16 17:22 Dose: 100 mg - Labs Labs: 05/29/16 08:35 05/28/16 07:28 PT 10.6 SECONDS (9.7-12.2) 11/24/15 14:10 INR 1.0 11/24/15 14:10 APTT 25 SECONDS (21-34) 11/24/15 14:10 Attending/Attestation - Attestation I have personally seen and examined this patient.: Yes I have fully participated in the care of the patient.: Yes I have reviewed all pertinent clinical information, including history, physical exam and plan: Yes Notes (Text): 05/29/16 22:02 patient seen and examined at bedside. Change in clinical condition. Continue current management. Continue local care of tracheostomy site at bedside. Turn and position the patient every 2 hours.
[2016-05-30] MEDS: Phenytoin 100 mg/4 ml Oral Susp UD PEG SCH ×3 (09:32→18:11)
[2016-05-30] MEDS: Enoxaparin 40 mg Syringe SC SCH (09:32)
--- NOTE | 2016-05-30 10:05 | CP.PCM.PN ---
<UmangMerrick Alanis - Last Filed: 05/30/16 16:47> Subjective - Date & Time of Evaluation Date of Evaluation: 05/30/16 Time of Evaluation: 11:00 - Subjective Subjective: Pgy3 Resident Note Patient seen and examined at bedside this AM. Resting comfortably in bed - opening eyes spontaneously and yawning intermittently during encounter. Patient tolerated exam and showed no signs of grimacing or distress. Trach and peg sites clean, dry and intact/patent. No acute events overnight per nursing and no changes with patient or current management. Objective - Vital Signs/Intake and Output Vital Signs (last 24 hours): Temp Pulse Resp BP Pulse Ox 98.3 F 75 20 121/78 97 05/30/16 07:45 05/30/16 08:02 05/30/16 07:45 05/30/16 07:45 05/30/16 07:45 Intake and Output: 05/30/16 05/30/16 06:59 18:59 Intake Total 1850 Output Total 1300 Balance 550 - Medications Medications: Current Medications Aspirin (Aspirin Chewable) 81 mg PEG DAILY [facility] Last Admin: 05/30/16 09:32 Dose: 81 mg Clopidogrel Bisulfate (Plavix) 75 mg PEG DAILY [facility] Last Admin: 05/30/16 09:32 Dose: 75 mg Enoxaparin Sodium (Lovenox) 40 mg SC DAILY [facility] Last Admin: 05/30/16 09:32 Dose: 40 mg Famotidine (Pepcid) 20 mg PEG BID [facility] Last Admin: 05/30/16 09:32 Dose: 20 mg Mupirocin (Bactroban Ointment) 0 gm TOP DAILY [facility] Last Admin: 05/30/16 09:37 Dose: 1 applic Oxybutynin Chloride (Ditropan Tab) 5 mg PEG TID [facility] Last Admin: 05/30/16 09:32 Dose: 5 mg Phenytoin (Dilantin) 100 mg PEG TID [facility] Last Admin: 05/30/16 09:32 Dose: 100 mg - Labs Labs: 05/29/16 08:35 05/28/16 07:28 PT 10.6 SECONDS (9.7-12.2) 11/24/15 14:10 INR 1.0 11/24/15 14:10 APTT 25 SECONDS (21-34) 11/24/15 14:10 - Constitutional Appears: Chronically Ill - Eye Exam Eye Exam: Normal appearance - ENT Exam ENT Exam: Mucous Membranes Moist (external lips dry) - Neck Exam Neck Exam: absent: Lymphadenopathy - Respiratory Exam Respiratory Exam: Clear to Ausculation Bilateral, NORMAL BREATHING PATTERN ( trach site patent - on ventilater) - Cardiovascular Exam Cardiovascular Exam: REGULAR RHYTHM, RRR - GI/Abdominal Exam GI & Abdominal Exam: Soft, Normal Bowel Sounds. absent: Tenderness Additional comments: PEG site intact, no erythematous - Extremities Exam Extremities Exam: Normal Capillary Refill Additional comments: plantar-flexed feet bilaterally, +2 DP pulse bilaterally - Neurological Exam Neurological Exam: Awake - Psychiatric Exam Psychiatric exam: Flat Affect Assessment and Plan - Assessment and Plan (Free Text) Assessment: (1) Anoxic encephalopathy Assessment & Plan: 05/30: patient opening eyes spontaneously on encounter today; PEG and trach site clean dry and intact\ - continue with therapy and turning patient q2h Previous note: Continue with PEG feeds and suctioning of trach Pending placement Status: Acute (2) Respiratory failure Assessment & Plan: 05/30: Continue trach care and suctioning as needed. Previous note: Continue with trach care and suctioning as needed NO new changes Monitor Status: Acute (3) UTI (lower urinary tract infection) Assessment & Plan: Resolved Yoo catheter in place Continue Ditropan 5mg via PEG TID Monitor Status: Acute (4) CAD (coronary artery disease) Assessment & Plan: s/p cardiac stents on 06/13/15 Continue ASA 81mg via PEG daily Continue Plavix 75mg via PEG daily Status: Acute (5) Seizures Assessment & Plan: Continue Dilantin 100mg via PEG TID Continue seizure precautions Monitor Status: Acute (6) Bed sore Assessment & Plan: Resolved Continue to turn patient q2hrs Monitor with skin checks Status: Acute (7) Prophylactic measure Assessment & Plan: Lovenox 40mg SC daily Pepcid 20mg via PEG BID Status: Acute <Donnell Ying - Last Filed: 05/31/16 09:29> Objective - Vital Signs/Intake and Output Vital Signs (last 24 hours): Temp Pulse Resp BP Pulse Ox 98.4 F 78 20 126/81 99 05/31/16 07:41 05/31/16 07:41 05/31/16 07:41 05/31/16 07:41 05/31/16 07:41 Intake and Output: 05/31/16 05/31/16 06:59 18:59 Intake Total 1300 Output Total 1450 Balance -150 - Medications Medications: Current Medications Aspirin (Aspirin Chewable) 81 mg PEG DAILY [facility] Last Admin: 05/31/16 09:25 Dose: 81 mg Clopidogrel Bisulfate (Plavix) 75 mg PEG DAILY [facility] Last Admin: 05/31/16 09:25 Dose: 75 mg Enoxaparin Sodium (Lovenox) 40 mg SC DAILY [facility] Last Admin: 05/31/16 09:25 Dose: 40 mg Famotidine (Pepcid) 20 mg PEG BID [facility] Last Admin: 05/31/16 09:25 Dose: 20 mg Mupirocin (Bactroban Ointment) 0 gm TOP DAILY [facility] Last Admin: 05/31/16 09:25 Dose: 1 applic Oxybutynin Chloride (Ditropan Tab) 5 mg PEG TID [facility] Last Admin: 05/31/16 09:25 Dose: 5 mg Phenytoin (Dilantin) 100 mg PEG TID [facility] Last Admin: 05/31/16 09:25 Dose: 100 mg - Labs Labs: 05/29/16 08:35 05/28/16 07:28 PT 10.6 SECONDS (9.7-12.2) 11/24/15 14:10 INR 1.0 11/24/15 14:10 APTT 25 SECONDS (21-34) 11/24/15 14:10 Attending/Attestation - Attestation I have personally seen and examined this patient.: Yes I have fully participated in the care of the patient.: Yes I have reviewed all pertinent clinical information, including history, physical exam and plan: Yes Notes (Text): 05/31/16 09:28 Patient was seen and examined at bedside Chart reviewed and events noted. The plan of care discussed with the resident in detail There is no change in clinical condition We will continue current management Continue to care for the PEG site and the trach site Suction the patient frequently Turn and position patient every 2 hours
[2016-05-31] MEDS: Enoxaparin 40 mg Syringe SC SCH (09:25)
[2016-05-31] MEDS: Phenytoin 100 mg/4 ml Oral Susp UD PEG SCH ×3 (09:25→18:00)
--- NOTE | 2016-05-31 18:28 | CP.PCM.PN ---
<Merrick Heck - Last Filed: 05/31/16 18:25> Subjective - Date & Time of Evaluation Date of Evaluation: 05/31/16 Time of Evaluation: 09:20 - Subjective Subjective: PGY3 [facility] Med Resident note Patient seen and examined at bedside this AM. Patient opening eyes spontaneously - does not change positions to auditory stimuli. Tolerated exam. trach and peg sites in place and clean dry and intact. No acute events overnight per nursing. Objective - Vital Signs/Intake and Output Vital Signs (last 24 hours): Temp Pulse Resp BP Pulse Ox 97.7 F 83 18 119/82 100 05/31/16 15:00 05/31/16 15:00 05/31/16 15:00 05/31/16 15:00 05/31/16 15:00 Intake and Output: 05/31/16 05/31/16 06:59 18:59 Intake Total 1300 750 Output Total 1450 400 Balance -150 350 - Medications Medications: Current Medications Aspirin (Aspirin Chewable) 81 mg PEG DAILY [facility] Last Admin: 05/31/16 09:25 Dose: 81 mg Clopidogrel Bisulfate (Plavix) 75 mg PEG DAILY [facility] Last Admin: 05/31/16 09:25 Dose: 75 mg Enoxaparin Sodium (Lovenox) 40 mg SC DAILY [facility] Last Admin: 05/31/16 09:25 Dose: 40 mg Famotidine (Pepcid) 20 mg PEG BID [facility] Last Admin: 05/31/16 09:25 Dose: 20 mg Mupirocin (Bactroban Ointment) 0 gm TOP DAILY [facility] Last Admin: 05/31/16 09:25 Dose: 1 applic Oxybutynin Chloride (Ditropan Tab) 5 mg PEG TID [facility] Last Admin: 05/31/16 13:21 Dose: 5 mg Phenytoin (Dilantin) 100 mg PEG TID [facility] Last Admin: 05/31/16 13:21 Dose: 100 mg - Labs Labs: 05/29/16 08:35 05/28/16 07:28 PT 10.6 SECONDS (9.7-12.2) 11/24/15 14:10 INR 1.0 11/24/15 14:10 APTT 25 SECONDS (21-34) 11/24/15 14:10 - Constitutional Appears: Chronically Ill - Eye Exam Eye Exam: PERRL - ENT Exam ENT Exam: Mucous Membranes Moist, Normal Oropharynx - Neck Exam Additional comments: trach site clean in place - Respiratory Exam Respiratory Exam: Clear to Ausculation Bilateral, NORMAL BREATHING PATTERN - Cardiovascular Exam Cardiovascular Exam: REGULAR RHYTHM, RRR, +S1, +S2 - GI/Abdominal Exam GI & Abdominal Exam: Soft, Normal Bowel Sounds. absent: Tenderness Additional comments: PEG site in place - Extremities Exam Additional comments: +2 dp pulse bilaterally both feet plantar flexed Assessment and Plan - Assessment and Plan (Free Text) Assessment: (1) Anoxic encephalopathy Assessment & Plan: 05/31: no acute changes: continue with q2h turning, therapy, feeds through PEG site and suctioning trach routinely Previous note: Continue with PEG feeds and suctioning of trach Pending placement Status: Acute (2) Respiratory failure Assessment & Plan: 05/31: Continue trach care and suctioning as needed. Previous note: Continue with trach care and suctioning as needed NO new changes Monitor Status: Acute (3) UTI (lower urinary tract infection) Assessment & Plan: Resolved Yoo catheter in place Continue Ditropan 5mg via PEG TID Monitor Status: Acute (4) CAD (coronary artery disease) Assessment & Plan: s/p cardiac stents on 06/13/15 Continue ASA 81mg via PEG daily Continue Plavix 75mg via PEG daily Status: Acute (5) Seizures Assessment & Plan: Continue Dilantin 100mg via PEG TID Continue seizure precautions Monitor Status: Acute (6) Bed sore Assessment & Plan: Resolved Continue to turn patient q2hrs Monitor with skin checks Status: Acute (7) Prophylactic measure Assessment & Plan: Lovenox 40mg SC daily Pepcid 20mg via PEG BID Status: Acute <Donnell Ying M - Last Filed: 06/01/16 07:32> Objective - Vital Signs/Intake and Output Vital Signs (last 24 hours): Temp Pulse Resp BP Pulse Ox 98.1 F 93 H 20 127/87 97 05/31/16 23:00 05/31/16 23:30 05/31/16 23:00 05/31/16 23:00 05/31/16 23:00 Intake and Output: 06/01/16 06/01/16 06:59 18:59 Intake Total 1850 Output Total 1300 Balance 550 - Medications Medications: Current Medications Aspirin (Aspirin Chewable) 81 mg PEG DAILY [facility] Last Admin: 05/31/16 09:25 Dose: 81 mg Clopidogrel Bisulfate (Plavix) 75 mg PEG DAILY [facility] Last Admin: 05/31/16 09:25 Dose: 75 mg Enoxaparin Sodium (Lovenox) 40 mg SC DAILY [facility] Last Admin: 05/31/16 09:25 Dose: 40 mg Famotidine (Pepcid) 20 mg PEG BID [facility] Last Admin: 05/31/16 18:00 Dose: 20 mg Mupirocin (Bactroban Ointment) 0 gm TOP DAILY [facility] Last Admin: 05/31/16 09:25 Dose: 1 applic Oxybutynin Chloride (Ditropan Tab) 5 mg PEG TID [facility] Last Admin: 05/31/16 18:00 Dose: 5 mg Phenytoin (Dilantin) 100 mg PEG TID [facility] Last Admin: 05/31/16 18:00 Dose: 100 mg - Labs Labs: 05/29/16 08:35 05/28/16 07:28 PT 10.6 SECONDS (9.7-12.2) 11/24/15 14:10 INR 1.0 11/24/15 14:10 APTT 25 SECONDS (21-34) 11/24/15 14:10 Attending/Attestation - Attestation I have personally seen and examined this patient.: Yes I have fully participated in the care of the patient.: Yes I have reviewed all pertinent clinical information, including history, physical exam and plan: Yes Notes (Text): 06/01/16 07:32 Patient was seen and examined at bedside There is no change in clinical condition Continue current management Negative with the above history and physical and assessment/plan but the resident.
[2016-06-01] MEDS: Phenytoin 100 mg/4 ml Oral Susp UD PEG SCH ×3 (10:12→17:44)
[2016-06-01] MEDS: Enoxaparin 40 mg Syringe SC SCH (10:14)
--- NOTE | 2016-06-01 13:18 | CP.PCM.PN ---
Subjective - Date & Time of Evaluation Date of Evaluation: 06/01/16 Time of Evaluation: 12:30 - Subjective Subjective: Patient was seen and examined at bedside Chart reviewed. Events noted. No acute events overnight. 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 Objective - Vital Signs/Intake and Output Vital Signs (last 24 hours): Temp Pulse Resp BP Pulse Ox 98.4 F 81 18 126/84 99 06/01/16 08:00 06/01/16 08:00 06/01/16 08:00 06/01/16 08:00 06/01/16 08:00 Intake and Output: 06/01/16 06/01/16 06:59 18:59 Intake Total 1850 Output Total 1300 Balance 550 - Medications Medications: Current Medications Aspirin (Aspirin Chewable) 81 mg PEG DAILY [facility] Last Admin: 06/01/16 10:11 Dose: 81 mg Clopidogrel Bisulfate (Plavix) 75 mg PEG DAILY [facility] Last Admin: 06/01/16 10:11 Dose: 75 mg Famotidine (Pepcid) 20 mg PEG BID [facility] Last Admin: 06/01/16 10:11 Dose: 20 mg Mupirocin (Bactroban Ointment) 0 gm TOP DAILY [facility] Last Admin: 05/31/16 09:25 Dose: 1 applic Oxybutynin Chloride (Ditropan Tab) 5 mg PEG TID [facility] Last Admin: 06/01/16 10:12 Dose: 5 mg Phenytoin (Dilantin) 100 mg PEG TID [facility] Last Admin: 06/01/16 10:12 Dose: 100 mg - Labs Labs: 05/29/16 08:35 05/28/16 07:28 PT 10.6 SECONDS (9.7-12.2) 11/24/15 14:10 INR 1.0 11/24/15 14:10 APTT 25 SECONDS (21-34) 11/24/15 14:10 - Head Exam Head Exam: ATRAUMATIC, NORMOCEPHALIC - Eye Exam Eye Exam: Normal appearance. absent: Scleral icterus - ENT Exam ENT Exam: Mucous Membranes Moist Additional comments: Tracheostomy and trach collar in place - Neck Exam Additional comments: Trach collar in place. Tracheostomy tube in place - Respiratory Exam Respiratory Exam: Clear to Ausculation Bilateral. absent: Rales, Rhonchi - Cardiovascular Exam Cardiovascular Exam: REGULAR RHYTHM, +S1, +S2 - GI/Abdominal Exam GI & Abdominal Exam: Soft, Normal Bowel Sounds. absent: Tenderness Additional comments: PEG in place - Extremities Exam Extremities Exam: Tenderness. absent: Pedal Edema - Neurological Exam Additional comments: Patient has spontaneous movements only does not respond to any verbal command is nonverbal. Patient has anoxic Assessment and Plan - Assessment and Plan (Free Text) Assessment: (1) Anoxic encephalopathy Assessment & Plan: 06/01: No acute changes noted. Continue supportive management 05/31: no acute changes: continue with q2h turning, therapy, feeds through PEG site and suctioning trach routinely Previous note: Continue with PEG feeds and suctioning of trach Pending placement Status: Acute (2) Respiratory failure Assessment & Plan: 06/01: Suctioning as needed. Continue local care of for trach 05/31: Continue trach care and suctioning as needed. Previous note: Continue with trach care and suctioning as needed NO new changes Monitor Status: Acute (3) UTI (lower urinary tract infection) Assessment & Plan: Resolved Yoo catheter in place Continue Ditropan 5mg via PEG TID Monitor Status: Acute (4) CAD (coronary artery disease) Assessment & Plan: s/p cardiac stents on 06/13/15 Continue ASA 81mg via PEG daily Continue Plavix 75mg via PEG daily Status: Acute (5) Seizures Assessment & Plan: Continue Dilantin 100mg via PEG TID Continue seizure precautions Monitor Status: Acute (6) Bed sore Assessment & Plan: Resolved Continue to turn patient q2hrs Monitor with skin checks Status: Acute (7) Prophylactic measure Assessment & Plan: Lovenox 40mg SC daily Pepcid 20mg via PEG BID Status: Acute
[2016-06-02 07:14] LABS: ALBUMIN 3.1 g/dL (3.5-5.0)
[2016-06-02 07:16] LABS: BASO # 0.1 K/uL (0.0-0.2); BASO % 0.6 % (0.0-2.0); EOS # 0.3 K/uL (0.0-0.7); EOS % 2.7 % (0.0-4.0); LYMPH # 2.1 K/uL (1.0-4.3); LYMPH % 20.4 % (20.0-40.0); MEAN CELL VOLUME 92.5 fL (80.0-94.0); MEAN CORPUSCULAR HEMOGLOBIN 30.3 pg (27.0-31.0); MEAN CORPUSCULAR HGB CONC 32.8 g/dL (33.0-37.0); MEAN PLATELET VOLUME 8.1 fL (7.2-11.7); MONO # 0.9 K/uL (0.0-0.8); MONO % 8.6 % (0.0-10.0); NEUT % 67.7 % (50.0-75.0); RBC 3.97 Mil/uL (4.40-5.90); RED CELL DISTRIBUTION WIDTH 13.9 % (11.5-14.5); WHITE BLOOD COUNT 10.3 K/uL (4.8-10.8)
[2016-06-02 07:17] LABS: ALB/GLOB RATIO 0.8 (1.0-2.1); AST/SGOT 27 U/L (17-59); GFR NON-AFRICAN AMERICAN > 60
[2016-06-02 07:18] LABS: ALT/SGPT 43 U/L (21-72); BLOOD UREA NITROGEN 21 mg/dL (9-20); CALCIUM 8.2 mg/dl (8.6-10.4)
[2016-06-02] MEDS: Phenytoin 100 mg/4 ml Oral Susp UD PEG SCH ×3 (09:21→18:09)
[2016-06-02] MEDS: Enoxaparin 40 mg Syringe SC SCH (09:22)
--- NOTE | 2016-06-02 14:46 | CP.PCM.PN ---
<Merrick Heck - Last Filed: 06/02/16 15:56> Subjective - Date & Time of Evaluation Date of Evaluation: 06/02/16 Time of Evaluation: 10:00 - Subjective Subjective: PGY3 [facility] Med resident note Patient seen and examined at bedside this AM. No acute changes. ROS unattainable. Re-evaluated patient later in afternoon with family member present who only speaks Mandarin. exam performed, PEG site c/d/i and patent , trach site c/d/i as well. No acute events overnight per nursing. Objective - Vital Signs/Intake and Output Vital Signs (last 24 hours): Temp Pulse Resp BP Pulse Ox 97.9 F 98 H 20 133/83 98 06/02/16 07:10 06/02/16 11:48 06/02/16 07:10 06/02/16 07:10 06/02/16 07:10 Intake and Output: 06/02/16 06/02/16 06:59 18:59 Intake Total 1850 70 Output Total 800 200 Balance 1050 -130 - Medications Medications: Current Medications Aspirin (Aspirin Chewable) 81 mg PEG DAILY [facility] Last Admin: 06/02/16 09:22 Dose: 81 mg Clopidogrel Bisulfate (Plavix) 75 mg PEG DAILY [facility] Last Admin: 06/02/16 09:21 Dose: 75 mg Enoxaparin Sodium (Lovenox) 40 mg SC DAILY [facility] Last Admin: 06/02/16 09:22 Dose: 40 mg Famotidine (Pepcid) 20 mg PEG BID [facility] Last Admin: 06/02/16 09:22 Dose: 20 mg Mupirocin (Bactroban Ointment) 0 gm TOP DAILY [facility] Last Admin: 06/02/16 09:23 Dose: 1 applic Oxybutynin Chloride (Ditropan Tab) 5 mg PEG TID [facility] Last Admin: 06/02/16 13:59 Dose: 5 mg Phenytoin (Dilantin) 100 mg PEG TID [facility] Last Admin: 06/02/16 13:59 Dose: 100 mg - Labs Labs: 06/02/16 07:00 06/02/16 07:00 PT 10.6 SECONDS (9.7-12.2) 11/24/15 14:10 INR 1.0 11/24/15 14:10 APTT 25 SECONDS (21-34) 11/24/15 14:10 - Constitutional Appears: Non-toxic, No Acute Distress, Chronically Ill - Eye Exam Eye Exam: Normal appearance, PERRL - ENT Exam ENT Exam: Mucous Membranes Moist, Normal Oropharynx - Respiratory Exam Respiratory Exam: Clear to Ausculation Bilateral, NORMAL BREATHING PATTERN. absent: Wheezes - Cardiovascular Exam Cardiovascular Exam: REGULAR RHYTHM, RRR, +S1, +S2 - GI/Abdominal Exam GI & Abdominal Exam: Soft, Normal Bowel Sounds. absent: Tenderness Additional comments: PEG site c/d/i - Extremities Exam Extremities Exam: Normal Capillary Refill. absent: Tenderness - Neurological Exam Neurological Exam: Awake - Psychiatric Exam Psychiatric exam: Flat Affect Assessment and Plan - Assessment and Plan (Free Text) Assessment: 1) Anoxic encephalopathy Assessment & Plan: 06/02: no acute changes: continue with q2h turning, therapy, feeds through PEG site and suctioning trach routinely CBC, CMP reviewed - no intervention at this time. continue to monitor [place] labs Previous note: Continue with PEG feeds and suctioning of trach Pending placement Status: Acute (2) Respiratory failure Assessment & Plan: 06/02: Continue trach care and suctioning as needed. Previous note: Continue with trach care and suctioning as needed NO new changes Monitor Status: Acute (3) UTI (lower urinary tract infection) Assessment & Plan: Resolved Yoo catheter in place Continue Ditropan 5mg via PEG TID Monitor Status: Acute (4) CAD (coronary artery disease) Assessment & Plan: s/p cardiac stents on 06/13/15 Continue ASA 81mg via PEG daily Continue Plavix 75mg via PEG daily Status: Acute (5) Seizures Assessment & Plan: Continue Dilantin 100mg via PEG TID Continue seizure precautions Monitor Status: Acute (6) Bed sore Assessment & Plan: Resolved Continue to turn patient q2hrs Monitor with skin checks Status: Acute (7) Prophylactic measure Assessment & Plan: Lovenox 40mg SC daily Pepcid 20mg via PEG BID Status: Acute <Donavan Hallman - Last Filed: 06/04/16 11:49> Objective - Vital Signs/Intake and Output Vital Signs (last 24 hours): Temp Pulse Resp BP Pulse Ox 98.6 F 96 H 20 136/89 98 06/04/16 07:27 06/04/16 07:45 06/04/16 07:27 06/04/16 07:27 06/04/16 07:27 Intake and Output: 06/04/16 06/04/16 06:59 18:59 Intake Total 1450 Output Total 350 Balance 1100 - Medications Medications: Current Medications Aspirin (Aspirin Chewable) 81 mg PEG DAILY [facility] Last Admin: 06/04/16 10:51 Dose: 81 mg Clopidogrel Bisulfate (Plavix) 75 mg PEG DAILY [facility] Last Admin: 06/04/16 10:51 Dose: 75 mg Enoxaparin Sodium (Lovenox) 40 mg SC DAILY [facility] Last Admin: 06/04/16 10:51 Dose: 40 mg Famotidine (Pepcid) 20 mg PEG BID [facility] Last Admin: 06/04/16 10:51 Dose: 20 mg Mupirocin (Bactroban Ointment) 0 gm TOP DAILY [facility] Last Admin: 06/04/16 10:52 Dose: 1 applic Oxybutynin Chloride (Ditropan Tab) 5 mg PEG TID [facility] Last Admin: 06/04/16 10:52 Dose: 5 mg Phenytoin (Dilantin) 100 mg PEG TID [facility] Last Admin: 06/04/16 10:51 Dose: 100 mg - Labs Labs: 06/02/16 07:00 06/04/16 07:54 PT 10.6 SECONDS (9.7-12.2) 11/24/15 14:10 INR 1.0 11/24/15 14:10 APTT 25 SECONDS (21-34) 11/24/15 14:10 Attending/Attestation - Attestation I have personally seen and examined this patient.: Yes I have fully participated in the care of the patient.: Yes I have reviewed all pertinent clinical information, including history, physical exam and plan: Yes Notes (Text): Patient seen and examined with the resident. agree with the resident's evaluation assessment and plan.
[2016-06-03] MEDS: Enoxaparin 40 mg Syringe SC SCH (10:34)
[2016-06-03] MEDS: Phenytoin 100 mg/4 ml Oral Susp UD PEG SCH ×3 (10:34→17:50)
--- NOTE | 2016-06-03 14:58 | CP.PCM.PN ---
<Merrick Heck - Last Filed: 06/03/16 14:46> Subjective - Date & Time of Evaluation Date of Evaluation: 06/03/16 Time of Evaluation: 11:15 - Subjective Subjective: PGY3 [facility] med resident note Patient seen and examined at bedside this AM. No acute changes at this time - PEG site and trach clean/dry and intact. Continue wound care. no acute events overnight per nursing. Objective - Vital Signs/Intake and Output Vital Signs (last 24 hours): Temp Pulse Resp BP Pulse Ox 98.6 F 92 H 20 110/68 97 06/03/16 08:28 06/03/16 08:28 06/03/16 08:28 06/03/16 08:28 06/03/16 08:28 Intake and Output: 06/03/16 06/03/16 06:59 18:59 Intake Total 1200 Output Total 1300 300 Balance -100 -300 - Medications Medications: Current Medications Aspirin (Aspirin Chewable) 81 mg PEG DAILY [facility] Last Admin: 06/03/16 10:33 Dose: 81 mg Clopidogrel Bisulfate (Plavix) 75 mg PEG DAILY [facility] Last Admin: 06/03/16 10:33 Dose: 75 mg Enoxaparin Sodium (Lovenox) 40 mg SC DAILY [facility] Last Admin: 06/03/16 10:34 Dose: 40 mg Famotidine (Pepcid) 20 mg PEG BID [facility] Last Admin: 06/03/16 10:34 Dose: 20 mg Mupirocin (Bactroban Ointment) 0 gm TOP DAILY [facility] Last Admin: 06/03/16 10:35 Dose: 1 applic Oxybutynin Chloride (Ditropan Tab) 5 mg PEG TID [facility] Last Admin: 06/03/16 14:42 Dose: 5 mg Phenytoin (Dilantin) 100 mg PEG TID [facility] Last Admin: 06/03/16 14:42 Dose: 100 mg - Labs Labs: 06/02/16 07:00 06/02/16 07:00 PT 10.6 SECONDS (9.7-12.2) 11/24/15 14:10 INR 1.0 11/24/15 14:10 APTT 25 SECONDS (21-34) 11/24/15 14:10 - Constitutional Appears: Non-toxic, No Acute Distress, Chronically Ill - Head Exam Head Exam: NORMAL INSPECTION, NORMOCEPHALIC - Eye Exam Eye Exam: Normal appearance, PERRL - ENT Exam ENT Exam: Mucous Membranes Moist, Normal Oropharynx - Neck Exam Additional comments: trach site clean intact - Respiratory Exam Respiratory Exam: Clear to Ausculation Bilateral, NORMAL BREATHING PATTERN. absent: Wheezes - Cardiovascular Exam Cardiovascular Exam: REGULAR RHYTHM, RRR - GI/Abdominal Exam GI & Abdominal Exam: Soft, Normal Bowel Sounds Additional comments: PEG site patent - Extremities Exam Extremities Exam: Normal Capillary Refill Assessment and Plan - Assessment and Plan (Free Text) Assessment: 1) Anoxic encephalopathy Assessment & Plan: 06/03: no acute changes: continue with q2h turning, therapy, feeds through PEG site and suctioning trach routinely continue to monitor [place] labs Previous note: Continue with PEG feeds and suctioning of trach Pending placement Status: Acute (2) Respiratory failure Assessment & Plan: 06/03: Continue trach care and suctioning as needed. Previous note: Continue with trach care and suctioning as needed NO new changes Monitor Status: Acute (3) UTI (lower urinary tract infection) Assessment & Plan: Resolved Yoo catheter in place Continue Ditropan 5mg via PEG TID Monitor Status: Acute (4) CAD (coronary artery disease) Assessment & Plan: s/p cardiac stents on 06/13/15 Continue ASA 81mg via PEG daily Continue Plavix 75mg via PEG daily Status: Acute (5) Seizures Assessment & Plan: Continue Dilantin 100mg via PEG TID Continue seizure precautions Monitor Status: Acute (6) Bed sore Assessment & Plan: Resolved Continue to turn patient q2hrs Monitor with skin checks Status: Acute (7) Prophylactic measure Assessment & Plan: Lovenox 40mg SC daily Pepcid 20mg via PEG BID Status: Acute <Donavan Hallman - Last Filed: 06/04/16 14:40> Objective - Vital Signs/Intake and Output Vital Signs (last 24 hours): Temp Pulse Resp BP Pulse Ox 98.6 F 96 H 20 136/89 98 06/04/16 07:27 06/04/16 07:45 06/04/16 07:27 06/04/16 07:27 06/04/16 07:27 Intake and Output: 06/04/16 06/04/16 06:59 18:59 Intake Total 1450 Output Total 350 Balance 1100 - Medications Medications: Current Medications Aspirin (Aspirin Chewable) 81 mg PEG DAILY [facility] Last Admin: 06/04/16 10:51 Dose: 81 mg Clopidogrel Bisulfate (Plavix) 75 mg PEG DAILY [facility] Last Admin: 06/04/16 10:51 Dose: 75 mg Enoxaparin Sodium (Lovenox) 40 mg SC DAILY [facility] Last Admin: 06/04/16 10:51 Dose: 40 mg Famotidine (Pepcid) 20 mg PEG BID [facility] Last Admin: 06/04/16 10:51 Dose: 20 mg Mupirocin (Bactroban Ointment) 0 gm TOP DAILY [facility] Last Admin: 06/04/16 10:52 Dose: 1 applic Oxybutynin Chloride (Ditropan Tab) 5 mg PEG TID [facility] Last Admin: 06/04/16 14:21 Dose: 5 mg Phenytoin (Dilantin) 100 mg PEG TID [facility] Last Admin: 06/04/16 14:21 Dose: 100 mg - Labs Labs: 06/02/16 07:00 06/04/16 07:54 PT 10.6 SECONDS (9.7-12.2) 11/24/15 14:10 INR 1.0 11/24/15 14:10 APTT 25 SECONDS (21-34) 11/24/15 14:10 Attending/Attestation - Attestation I have personally seen and examined this patient.: Yes I have fully participated in the care of the patient.: Yes I have reviewed all pertinent clinical information, including history, physical exam and plan: Yes Notes (Text): Patient seen and examined with Resident. Agree with the resident's evaluation, assessment and plan.
[2016-06-04 08:12] LABS: ALBUMIN 3.2 g/dL (3.5-5.0)
[2016-06-04 08:15] LABS: ALB/GLOB RATIO 0.8 (1.0-2.1); AST/SGOT 43 U/L (17-59); GFR NON-AFRICAN AMERICAN > 60
[2016-06-04 08:16] LABS: ALT/SGPT 40 U/L (21-72); BLOOD UREA NITROGEN 21 mg/dL (9-20); CALCIUM 8.7 mg/dl (8.6-10.4)
--- NOTE | 2016-06-04 10:09 | CP.PCM.PN ---
Addendum entered and electronically signed by Saba Ennis MD 06/04/16 16:12: RN notified to apply offloading boots to patient bilateral lower extremities for foot drop. Original Note: Subjective - Date & Time of Evaluation Date of Evaluation: 06/04/16 Time of Evaluation: 09:30 - Subjective Subjective: Patient seen and examined at bedside. Patient is non-verbal secondary to anoxic brain injury. He moves his limbs spontaneously. Trach collar, PEG, and Yoo in place. No acute overnight events reported by nursing. Objective - Vital Signs/Intake and Output Vital Signs (last 24 hours): Temp Pulse Resp BP Pulse Ox 98.6 F 96 H 20 136/89 98 06/04/16 07:27 06/04/16 07:45 06/04/16 07:27 06/04/16 07:27 06/04/16 07:27 Intake and Output: 06/04/16 06/04/16 06:59 18:59 Intake Total 1450 Output Total 350 Balance 1100 - Medications Medications: Current Medications Aspirin (Aspirin Chewable) 81 mg PEG DAILY [facility] Last Admin: 06/03/16 10:33 Dose: 81 mg Clopidogrel Bisulfate (Plavix) 75 mg PEG DAILY [facility] Last Admin: 06/03/16 10:33 Dose: 75 mg Enoxaparin Sodium (Lovenox) 40 mg SC DAILY [facility] Last Admin: 06/03/16 10:34 Dose: 40 mg Famotidine (Pepcid) 20 mg PEG BID [facility] Last Admin: 06/03/16 17:50 Dose: 20 mg Mupirocin (Bactroban Ointment) 0 gm TOP DAILY [facility] Last Admin: 06/03/16 10:35 Dose: 1 applic Oxybutynin Chloride (Ditropan Tab) 5 mg PEG TID [facility] Last Admin: 06/03/16 17:50 Dose: 5 mg Phenytoin (Dilantin) 100 mg PEG TID [facility] Last Admin: 06/03/16 17:50 Dose: 100 mg - Labs Labs: 06/02/16 07:00 06/04/16 07:54 PT 10.6 SECONDS (9.7-12.2) 11/24/15 14:10 INR 1.0 11/24/15 14:10 APTT 25 SECONDS (21-34) 11/24/15 14:10 - Constitutional Appears: Chronically Ill - Head Exam Head Exam: NORMOCEPHALIC - Eye Exam Additional comments: pupils equal and round but not reactive to light - ENT Exam ENT Exam: Mucous Membranes Dry - Neck Exam Additional comments: trach collar in place, site covered with gauze pads clean and dry, thin secretions in trach tube noted - Respiratory Exam Respiratory Exam: Clear to Ausculation Bilateral, NORMAL BREATHING PATTERN. absent: Wheezes - Cardiovascular Exam Cardiovascular Exam: REGULAR RHYTHM, +S1, +S2 - GI/Abdominal Exam GI & Abdominal Exam: Soft. absent: Distended Additional comments: PEG tube site clean, no feeds running at this time - Extremities Exam Extremities Exam: Pedal Edema Additional comments: bilateral foot drop - Neurological Exam Neurological Exam: Altered Assessment and Plan - Assessment and Plan (Free Text) Assessment: 1) Anoxic encephalopathy Assessment & Plan: 06/04: BMP unremarkable. No acute changes in management. Continue to turn patient q2h, therapy, feeds through PEG site and suctioning trach routinely Continue to monitor weekly labs Pending placement Status: Chronic (2) Respiratory failure Assessment & Plan: 06/04: No signs of respiratory distress. Patient afebrile. Continue trach care and suctioning as needed. Monitor Status: Chronic (3) UTI (lower urinary tract infection) Assessment & Plan: Resolved Yoo catheter in place with adequate urine output Continue Ditropan 5mg via PEG TID Monitor urine output Status: Resolved (4) CAD (coronary artery disease) Assessment & Plan: s/p cardiac stents on 06/13/15 Continue ASA 81mg via PEG daily Continue Plavix 75mg via PEG daily Status: Chronic (5) Seizures Assessment & Plan: Continue Dilantin 100mg via PEG TID Continue seizure precautions Monitor Status: Chronic (6) Bed sore Assessment & Plan: Resolved Continue to turn patient q2hrs Monitor with skin checks Status: Acute (7) Prophylactic measure Assessment & Plan: Lovenox 40mg SC daily Pepcid 20mg via PEG BID Status: Chronic
[2016-06-04] MEDS: Phenytoin 100 mg/4 ml Oral Susp UD PEG SCH ×3 (10:51→18:53)
[2016-06-04] MEDS: Enoxaparin 40 mg Syringe SC SCH (10:51)
[2016-06-05 06:44] LABS: BASO % 0.3 % (0.0-2.0); EOS # 0.4 K/uL (0.0-0.7); EOS % 4.5 % (0.0-4.0); HEMOGLOBIN 12.5 g/dL (12.0-18.0); LYMPH # 1.9 K/uL (1.0-4.3); LYMPH % 21.9 % (20.0-40.0); MEAN CORPUSCULAR HEMOGLOBIN 30.2 pg (27.0-31.0); MEAN CORPUSCULAR HGB CONC 33.2 g/dL (33.0-37.0); MEAN PLATELET VOLUME 8.1 fL (7.2-11.7); MONO # 1.1 K/uL (0.0-0.8); MONO % 12.7 % (0.0-10.0); NEUT # 5.4 K/uL (1.8-7.0); NEUT % 60.6 % (50.0-75.0); NRBC % 0.1 % (0.0-2.0); RBC 4.14 Mil/uL (4.40-5.90); RED CELL DISTRIBUTION WIDTH 13.7 % (11.5-14.5); WHITE BLOOD COUNT 8.9 K/uL (4.8-10.8)
[2016-06-05] MEDS: Phenytoin 100 mg/4 ml Oral Susp UD PEG SCH ×3 (10:24→18:13)
[2016-06-05] MEDS: Enoxaparin 40 mg Syringe SC SCH (10:24)
--- NOTE | 2016-06-05 13:27 | CP.PCM.PN ---
Subjective - Date & Time of Evaluation Date of Evaluation: 06/05/16 Time of Evaluation: 10:15 - Subjective Subjective: PGY3 Fam med resident note Patient seen and examined at bedside this AM. Resting comfortably in bed - eyes spontaneously opening and patient moving to touch. ROS unattainable - aphasic. No acute changes and no events overnight per nursing. Objective - Vital Signs/Intake and Output Vital Signs (last 24 hours): Temp Pulse Resp BP Pulse Ox 98.9 F 79 20 124/81 98 06/05/16 07:46 06/05/16 08:25 06/05/16 07:46 06/05/16 07:46 06/05/16 07:46 Intake and Output: 06/05/16 06/05/16 06:59 18:59 Intake Total 1450 Output Total 1100 Balance 350 - Medications Medications: Current Medications Aspirin (Aspirin Chewable) 81 mg PEG DAILY [facility] Last Admin: 06/05/16 10:24 Dose: 81 mg Clopidogrel Bisulfate (Plavix) 75 mg PEG DAILY [facility] Last Admin: 06/05/16 10:24 Dose: 75 mg Enoxaparin Sodium (Lovenox) 40 mg SC DAILY [facility] Last Admin: 06/05/16 10:24 Dose: 40 mg Famotidine (Pepcid) 20 mg PEG BID [facility] Last Admin: 06/05/16 10:24 Dose: 20 mg Mupirocin (Bactroban Ointment) 0 gm TOP DAILY [facility] Last Admin: 06/05/16 10:25 Dose: 1 applic Oxybutynin Chloride (Ditropan Tab) 5 mg PEG TID [facility] Last Admin: 06/05/16 10:24 Dose: 5 mg Phenytoin (Dilantin) 100 mg PEG TID [facility] Last Admin: 06/05/16 10:24 Dose: 100 mg - Labs Labs: 06/05/16 06:34 06/04/16 07:54 PT 10.6 SECONDS (9.7-12.2) 11/24/15 14:10 INR 1.0 11/24/15 14:10 APTT 25 SECONDS (21-34) 11/24/15 14:10 - Constitutional Appears: No Acute Distress, Chronically Ill - Head Exam Head Exam: NORMAL INSPECTION, NORMOCEPHALIC - Eye Exam Eye Exam: Normal appearance, PERRL - ENT Exam ENT Exam: Mucous Membranes Moist, Normal Oropharynx - Neck Exam Neck Exam: absent: Lymphadenopathy Additional comments: trach in place, site c/d/i - Respiratory Exam Respiratory Exam: NORMAL BREATHING PATTERN. absent: Rales, Wheezes - Cardiovascular Exam Cardiovascular Exam: REGULAR RHYTHM, RRR, +S1, +S2 - GI/Abdominal Exam GI & Abdominal Exam: Soft, Normal Bowel Sounds. absent: Tenderness Additional comments: PEG site c/d/i - patent - Extremities Exam Extremities Exam: Normal Capillary Refill Additional comments: plantar-flexed feet bilaterally - Neurological Exam Neurological Exam: Awake - Psychiatric Exam Psychiatric exam: Flat Affect Assessment and Plan - Assessment and Plan (Free Text) Assessment: 1) Anoxic encephalopathy Assessment & Plan: 06/05: no acute changes: continue with q2h turning, therapy, feeds through PEG site and suctioning trach routinely [facility] Previous note: Continue with PEG feeds and suctioning of trach Pending placement Status: Acute (2) Respiratory failure Assessment & Plan: 06/05: Continue trach care and suctioning as needed. Previous note: Continue with trach care and suctioning as needed NO new changes Monitor Status: Acute (3) UTI (lower urinary tract infection) Assessment & Plan: Resolved Yoo catheter in place Continue Ditropan 5mg via PEG TID Monitor Status: Acute (4) CAD (coronary artery disease) Assessment & Plan: s/p cardiac stents on 06/13/15 Continue ASA 81mg via PEG daily Continue Plavix 75mg via PEG daily Status: Acute (5) Seizures Assessment & Plan: Continue Dilantin 100mg via PEG TID Continue seizure precautions Monitor Status: Acute (6) Bed sore Assessment & Plan: Resolved Continue to turn patient q2hrs Monitor with skin checks Status: Acute (7) Prophylactic measure Assessment & Plan: Lovenox 40mg SC daily Pepcid 20mg via PEG BID Status: Acute
[2016-06-06] MEDS: Enoxaparin 40 mg Syringe SC SCH (10:58)
[2016-06-06] MEDS: Phenytoin 100 mg/4 ml Oral Susp UD PEG SCH ×3 (10:58→18:15)
--- NOTE | 2016-06-06 17:33 | CP.PCM.PN ---
Subjective - Date & Time of Evaluation Date of Evaluation: 06/06/16 Time of Evaluation: 09:45 - Subjective Subjective: PGY3 [facility] med resident note Patient seen and examined at bedside this AM. No acute changes in status - PEG and trach site intact. No acute events overnight per nursing. Resume current management. ROS unattainable due to anoxic encephalopathy. Objective - Vital Signs/Intake and Output Vital Signs (last 24 hours): Temp Pulse Resp BP Pulse Ox 98.8 F 75 22 124/71 99 06/06/16 17:04 06/06/16 17:04 06/06/16 17:04 06/06/16 17:04 06/06/16 17:04 Intake and Output: 06/06/16 06/06/16 06:59 18:59 Intake Total 1500 Output Total 900 Balance 600 - Medications Medications: Current Medications Aspirin (Aspirin Chewable) 81 mg PEG DAILY [facility] Last Admin: 06/06/16 11:02 Dose: 81 mg Clopidogrel Bisulfate (Plavix) 75 mg PEG DAILY [facility] Last Admin: 06/06/16 10:59 Dose: 75 mg Enoxaparin Sodium (Lovenox) 40 mg SC DAILY [facility] Last Admin: 06/06/16 10:58 Dose: 40 mg Famotidine (Pepcid) 20 mg PEG BID [facility] Last Admin: 06/06/16 10:59 Dose: 20 mg Mupirocin (Bactroban Ointment) 0 gm TOP DAILY [facility] Last Admin: 06/06/16 11:06 Dose: 1 applic Oxybutynin Chloride (Ditropan Tab) 5 mg PEG TID [facility] Last Admin: 06/06/16 13:48 Dose: 5 mg Phenytoin (Dilantin) 100 mg PEG TID [facility] Last Admin: 06/06/16 13:48 Dose: 100 mg - Labs Labs: 06/05/16 06:34 06/04/16 07:54 PT 10.6 SECONDS (9.7-12.2) 11/24/15 14:10 INR 1.0 11/24/15 14:10 APTT 25 SECONDS (21-34) 11/24/15 14:10 - Constitutional Appears: Chronically Ill - Head Exam Head Exam: NORMAL INSPECTION, NORMOCEPHALIC - Eye Exam Eye Exam: EOMI, Normal appearance, PERRL - ENT Exam ENT Exam: Mucous Membranes Moist, Normal Oropharynx - Neck Exam Additional comments: trach site intact - clean - Respiratory Exam Respiratory Exam: Clear to Ausculation Bilateral, NORMAL BREATHING PATTERN. absent: Wheezes - Cardiovascular Exam Cardiovascular Exam: REGULAR RHYTHM, RRR, +S1 - GI/Abdominal Exam GI & Abdominal Exam: Soft, Normal Bowel Sounds Additional comments: PEG site clean and intact - Extremities Exam Extremities Exam: Normal Capillary Refill - Neurological Exam Neurological Exam: Awake Assessment and Plan - Assessment and Plan (Free Text) Assessment: 1) Anoxic encephalopathy Assessment & Plan: 06/06: no acute changes: continue with q2h turning, therapy, feeds through PEG site and suctioning trach routinely continue to monitor [place] labs Previous note: Continue with PEG feeds and suctioning of trach Pending placement Status: Acute (2) Respiratory failure Assessment & Plan: 06/06: Continue trach care and suctioning as needed. Previous note: Continue with trach care and suctioning as needed NO new changes Monitor Status: Acute (3) UTI (lower urinary tract infection) Assessment & Plan: Resolved Yoo catheter in place Continue Ditropan 5mg via PEG TID Monitor Status: Acute (4) CAD (coronary artery disease) Assessment & Plan: s/p cardiac stents on 06/13/15 Continue ASA 81mg via PEG daily Continue Plavix 75mg via PEG daily Status: Acute (5) Seizures Assessment & Plan: Continue Dilantin 100mg via PEG TID Continue seizure precautions Monitor Status: Acute (6) Bed sore Assessment & Plan: Resolved Continue to turn patient q2hrs Monitor with skin checks Status: Acute (7) Prophylactic measure Assessment & Plan: Lovenox 40mg SC daily Pepcid 20mg via PEG BID Status: Acute
--- NOTE | 2016-06-07 04:05 | CP.PCM.PN ---
<AnkitaMee - Last Filed: 06/07/16 04:01> Subjective - Date & Time of Evaluation Date of Evaluation: 06/07/16 Time of Evaluation: 04:01 - Subjective Subjective: Patient examined at bedside. Patient appears comfortable. Unable to obtain ROS as patient is non verbal. No acute events per nursing. Objective - Vital Signs/Intake and Output Vital Signs (last 24 hours): Temp Pulse Resp BP Pulse Ox 99.2 F 93 H 20 118/73 98 06/06/16 23:37 06/06/16 23:37 06/06/16 23:37 06/06/16 23:37 06/06/16 23:37 Intake and Output: 06/06/16 06/07/16 18:59 06:59 Intake Total 850 800 Output Total 300 500 Balance 550 300 - Medications Medications: Current Medications Aspirin (Aspirin Chewable) 81 mg PEG DAILY [facility] Last Admin: 06/06/16 11:02 Dose: 81 mg Clopidogrel Bisulfate (Plavix) 75 mg PEG DAILY [facility] Last Admin: 06/06/16 10:59 Dose: 75 mg Enoxaparin Sodium (Lovenox) 40 mg SC DAILY [facility] Last Admin: 06/06/16 10:58 Dose: 40 mg Famotidine (Pepcid) 20 mg PEG BID [facility] Last Admin: 06/06/16 18:16 Dose: 20 mg Mupirocin (Bactroban Ointment) 0 gm TOP DAILY [facility] Last Admin: 06/06/16 11:06 Dose: 1 applic Oxybutynin Chloride (Ditropan Tab) 5 mg PEG TID [facility] Last Admin: 06/06/16 18:15 Dose: 5 mg Phenytoin (Dilantin) 100 mg PEG TID [facility] Last Admin: 06/06/16 18:15 Dose: 100 mg - Labs Labs: 06/05/16 06:34 06/04/16 07:54 PT 10.6 SECONDS (9.7-12.2) 11/24/15 14:10 INR 1.0 11/24/15 14:10 APTT 25 SECONDS (21-34) 11/24/15 14:10 - Constitutional Appears: No Acute Distress - Head Exam Head Exam: NORMAL INSPECTION, NORMOCEPHALIC - Eye Exam Eye Exam: Normal appearance - ENT Exam Additional comments: trach in place - Respiratory Exam Respiratory Exam: Clear to Ausculation Bilateral, NORMAL BREATHING PATTERN - Cardiovascular Exam Cardiovascular Exam: REGULAR RHYTHM, +S1, +S2 - GI/Abdominal Exam GI & Abdominal Exam: Soft, Normal Bowel Sounds - Neurological Exam Neurological Exam: Awake - Skin Skin Exam: Normal Color Additional comments: healing ulcers Assessment and Plan - Assessment and Plan (Free Text) Assessment: 1) Anoxic encephalopathy Assessment & Plan: 06/07: no acute changes: continue with q2h turning, therapy, feeds through PEG site and suctioning trach routinely continue to monitor [facility] labs Previous note: Continue with PEG feeds and suctioning of trach Pending placement Status: Acute (2) Respiratory failure Assessment & Plan: 06/07: Continue trach care and suctioning as needed. Previous note: Continue with trach care and suctioning as needed NO new changes Monitor Status: Acute (3) UTI (lower urinary tract infection) Assessment & Plan: Resolved Yoo catheter in place Continue Ditropan 5mg via PEG TID Monitor Status: Acute (4) CAD (coronary artery disease) Assessment & Plan: s/p cardiac stents on 06/13/15 Continue ASA 81mg via PEG daily Continue Plavix 75mg via PEG daily Status: Acute (5) Seizures Assessment & Plan: Continue Dilantin 100mg via PEG TID Continue seizure precautions Monitor Status: Acute (6) Bed sore Assessment & Plan: Resolved Continue wound care Prevalon boots in place to avoid heel ulcer development Continue to turn patient q2hrs Monitor with skin checks Status: Acute (7) Prophylactic measure Assessment & Plan: Lovenox 40mg SC daily Pepcid 20mg via PEG BID <Donnell Ying - Last Filed: 06/08/16 18:35> Objective - Vital Signs/Intake and Output Vital Signs (last 24 hours): Temp Pulse Resp BP Pulse Ox 98.8 F 97 H 20 116/69 99 06/08/16 16:00 06/08/16 16:00 06/08/16 16:00 06/08/16 16:00 06/08/16 16:00 Intake and Output: 06/08/16 06/08/16 06:59 18:59 Intake Total 600 850 Output Total 300 Balance 600 550 - Medications Medications: Current Medications Aspirin (Aspirin Chewable) 81 mg PEG DAILY [facility] Last Admin: 06/08/16 10:11 Dose: 81 mg Clopidogrel Bisulfate (Plavix) 75 mg PEG DAILY [facility] Last Admin: 06/08/16 10:10 Dose: 75 mg Enoxaparin Sodium (Lovenox) 40 mg SC DAILY [facility] Last Admin: 06/08/16 10:11 Dose: 40 mg Famotidine (Pepcid) 20 mg PEG DAILY [facility] Last Admin: 06/08/16 10:10 Dose: 20 mg Mupirocin (Bactroban Ointment) 0 gm TOP DAILY [facility] Last Admin: 06/08/16 10:12 Dose: 1 applic Oxybutynin Chloride (Ditropan Tab) 5 mg PEG TID [facility] Last Admin: 06/08/16 17:31 Dose: 5 mg Phenytoin (Dilantin) 100 mg PEG TID [facility] Last Admin: 06/08/16 17:31 Dose: 100 mg - Labs Labs: 06/05/16 06:34 06/04/16 07:54 PT 10.6 SECONDS (9.7-12.2) 11/24/15 14:10 INR 1.0 11/24/15 14:10 APTT 25 SECONDS (21-34) 11/24/15 14:10 Attending/Attestation - Attestation I have personally seen and examined this patient.: Yes I have fully participated in the care of the patient.: Yes I have reviewed all pertinent clinical information, including history, physical exam and plan: Yes Notes (Text): 06/08/16 18:35 patient was seen and examined at bedside No change in clinical condition Continue current management.
[2016-06-07] MEDS: Enoxaparin 40 mg Syringe SC SCH (11:00)
[2016-06-07] MEDS: Phenytoin 100 mg/4 ml Oral Susp UD PEG SCH ×3 (11:00→18:07)
--- NOTE | 2016-06-08 02:39 | CP.PCM.PN ---
<Mee Luciano - Last Filed: 06/08/16 08:05> Subjective - Date & Time of Evaluation Date of Evaluation: 06/08/16 Time of Evaluation: 01:00 - Subjective Subjective: Patient examined at bedside. Patient appears comfortable. ROS cannot be obtained as patient is nonverbal. Objective - Vital Signs/Intake and Output Vital Signs (last 24 hours): Temp Pulse Resp BP Pulse Ox 99.1 F 84 20 121/82 98 06/07/16 23:45 06/07/16 23:45 06/07/16 23:45 06/07/16 23:45 06/07/16 23:45 Intake and Output: 06/07/16 06/08/16 18:59 06:59 Intake Total 850 600 Output Total 300 Balance 550 600 - Medications Medications: Current Medications Aspirin (Aspirin Chewable) 81 mg PEG DAILY [facility] Last Admin: 06/07/16 11:00 Dose: 81 mg Clopidogrel Bisulfate (Plavix) 75 mg PEG DAILY [facility] Enoxaparin Sodium (Lovenox) 40 mg SC DAILY [facility] Last Admin: 06/07/16 11:00 Dose: 40 mg Famotidine (Pepcid) 20 mg PEG DAILY [facility] Mupirocin (Bactroban Ointment) 0 gm TOP DAILY [facility] Oxybutynin Chloride (Ditropan Tab) 5 mg PEG TID [facility] Last Admin: 06/07/16 18:08 Dose: 5 mg Phenytoin (Dilantin) 100 mg PEG TID [facility] Last Admin: 06/07/16 18:07 Dose: 100 mg - Labs Labs: 06/05/16 06:34 06/04/16 07:54 PT 10.6 SECONDS (9.7-12.2) 11/24/15 14:10 INR 1.0 11/24/15 14:10 APTT 25 SECONDS (21-34) 11/24/15 14:10 - Constitutional Appears: No Acute Distress - Head Exam Head Exam: NORMAL INSPECTION - Eye Exam Eye Exam: Normal appearance - ENT Exam Additional comments: trach in place - Neck Exam Neck Exam: Normal Inspection Additional comments: trach in place - Respiratory Exam Respiratory Exam: Clear to Ausculation Bilateral, NORMAL BREATHING PATTERN - Cardiovascular Exam Cardiovascular Exam: REGULAR RHYTHM, +S1, +S2 - GI/Abdominal Exam GI & Abdominal Exam: Soft, Normal Bowel Sounds. absent: Tenderness Additional comments: PEG in place, clean and intact - Neurological Exam Neurological Exam: Awake - Psychiatric Exam Psychiatric exam: Normal Mood - Skin Skin Exam: Normal Color Assessment and Plan - Assessment and Plan (Free Text) Assessment: 1) Anoxic encephalopathy Assessment & Plan: 06/08: no acute changes: continue with q2h turning, therapy, feeds through PEG site and suctioning trach routinely continue to monitor [place] labs Pending placement Status: Acute (2) Respiratory failure Assessment & Plan: 06/07: Continue trach care and suctioning as needed. Monitor Status: Acute (3) UTI (lower urinary tract infection) Assessment & Plan: Resolved Yoo catheter in place Continue Ditropan 5mg via PEG TID Monitor Status: Acute (4) CAD (coronary artery disease) Assessment & Plan: s/p cardiac stents on 06/13/15 Continue ASA 81mg via PEG daily Continue Plavix 75mg via PEG daily Status: Acute (5) Seizures Assessment & Plan: Continue Dilantin 100mg via PEG TID Continue seizure precautions Monitor Status: Acute (6) Bed sore Assessment & Plan: Resolved Continue wound care Prevalon boots in place to avoid heel ulcer development Continue to turn patient q2hrs Monitor with skin checks Status: Acute (7) Prophylactic measure Assessment & Plan: Lovenox 40mg SC daily Pepcid 20mg via PEG BID <Donavan Hallman - Last Filed: 06/08/16 08:12> Objective - Vital Signs/Intake and Output Vital Signs (last 24 hours): Temp Pulse Resp BP Pulse Ox 99.1 F 84 20 121/82 98 06/07/16 23:45 06/08/16 03:07 06/07/16 23:45 06/07/16 23:45 06/07/16 23:45 Intake and Output: 06/08/16 06/08/16 06:59 18:59 Intake Total 600 Balance 600 - Medications Medications: Current Medications Aspirin (Aspirin Chewable) 81 mg PEG DAILY [facility] Last Admin: 06/07/16 11:00 Dose: 81 mg Clopidogrel Bisulfate (Plavix) 75 mg PEG DAILY [facility] Enoxaparin Sodium (Lovenox) 40 mg SC DAILY [facility] Last Admin: 06/07/16 11:00 Dose: 40 mg Famotidine (Pepcid) 20 mg PEG DAILY [facility] Mupirocin (Bactroban Ointment) 0 gm TOP DAILY [facility] Oxybutynin Chloride (Ditropan Tab) 5 mg PEG TID [facility] Last Admin: 06/07/16 18:08 Dose: 5 mg Phenytoin (Dilantin) 100 mg PEG TID [facility] Last Admin: 06/07/16 18:07 Dose: 100 mg - Labs Labs: 06/05/16 06:34 06/04/16 07:54 PT 10.6 SECONDS (9.7-12.2) 11/24/15 14:10 INR 1.0 11/24/15 14:10 APTT 25 SECONDS (21-34) 11/24/15 14:10 Attending/Attestation - Attestation I have personally seen and examined this patient.: Yes I have fully participated in the care of the patient.: Yes I have reviewed all pertinent clinical information, including history, physical exam and plan: Yes Notes (Text): Patient seen and examined with resident. Agree with resident's evaluation, assessment and plan.
[2016-06-08] MEDS: Phenytoin 100 mg/4 ml Oral Susp UD PEG SCH ×3 (10:10→17:31)
[2016-06-08] MEDS: Enoxaparin 40 mg Syringe SC SCH (10:11)
[2016-06-09 08:28] LABS: BASO % 0.3 % (0.0-2.0); EOS # 0.5 K/uL (0.0-0.7); EOS % 4.1 % (0.0-4.0); HEMOGLOBIN 11.9 g/dL (12.0-18.0); LYMPH # 2.2 K/uL (1.0-4.3); LYMPH % 18.8 % (20.0-40.0); MEAN CELL VOLUME 92.2 fL (80.0-94.0); MEAN CORPUSCULAR HEMOGLOBIN 29.9 pg (27.0-31.0); MEAN CORPUSCULAR HGB CONC 32.5 g/dL (33.0-37.0); MEAN PLATELET VOLUME 8.6 fL (7.2-11.7); MONO # 1.2 K/uL (0.0-0.8); MONO % 9.9 % (0.0-10.0); NEUT # 7.9 K/uL (1.8-7.0); NEUT % 66.9 % (50.0-75.0); NRBC % 0.1 % (0.0-2.0); RBC 3.96 Mil/uL (4.40-5.90); RED CELL DISTRIBUTION WIDTH 14.1 % (11.5-14.5); WHITE BLOOD COUNT 11.8 K/uL (4.8-10.8)
[2016-06-09 09:17] LABS: ALB/GLOB RATIO 0.8 (1.0-2.1); ALT/SGPT 36 U/L (21-72); AST/SGOT 21 U/L (17-59); BLOOD UREA NITROGEN 22 mg/dL (9-20); GFR NON-AFRICAN AMERICAN > 60
[2016-06-09 09:18] LABS: CALCIUM 8.5 mg/dl (8.6-10.4)
[2016-06-09] MEDS: Phenytoin 100 mg/4 ml Oral Susp UD PEG SCH ×3 (10:06→18:50)
[2016-06-09] MEDS: Enoxaparin 40 mg Syringe SC SCH (10:08)
--- NOTE | 2016-06-09 18:08 | CP.PCM.PN ---
<Merrick Heck - Last Filed: 06/09/16 18:05> Subjective - Date & Time of Evaluation Date of Evaluation: 06/09/16 Time of Evaluation: 10:00 - Subjective Subjective: PGY3 medicine note Patient seen and examined at bedside this AM. No acute changes at this time - ROS unattainable due to aphasia and anoxic encephalopathy. no acute changes overnight - trach and PEG c/d/i. Objective - Vital Signs/Intake and Output Vital Signs (last 24 hours): Temp Pulse Resp BP Pulse Ox 98.7 F 75 19 125/87 100 06/09/16 15:00 06/09/16 15:00 06/09/16 15:00 06/09/16 15:00 06/09/16 15:00 Intake and Output: 06/09/16 06/09/16 06:59 18:59 Intake Total 1550 800 Output Total 800 400 Balance 750 400 - Medications Medications: Current Medications Aspirin (Aspirin Chewable) 81 mg PEG DAILY [facility] Last Admin: 06/09/16 10:07 Dose: 81 mg Clopidogrel Bisulfate (Plavix) 75 mg PEG DAILY [facility] Last Admin: 06/09/16 10:06 Dose: 75 mg Enoxaparin Sodium (Lovenox) 40 mg SC DAILY [facility] Famotidine (Pepcid) 20 mg PEG DAILY [facility] Last Admin: 06/09/16 10:06 Dose: 20 mg Mupirocin (Bactroban Ointment) 0 gm TOP DAILY [facility] Last Admin: 06/09/16 10:07 Dose: 1 applic Oxybutynin Chloride (Ditropan Tab) 5 mg PEG TID [facility] Last Admin: 06/09/16 13:32 Dose: 5 mg Phenytoin (Dilantin) 100 mg PEG TID [facility] Last Admin: 06/09/16 13:32 Dose: 100 mg Potassium Chloride (Potassium Chloride Oral Soln) 20 meq PEG ONCE ONE Stop: 06/09/16 18:31 - Labs Labs: 06/09/16 08:20 06/09/16 08:20 PT 10.6 SECONDS (9.7-12.2) 11/24/15 14:10 INR 1.0 11/24/15 14:10 APTT 25 SECONDS (21-34) 11/24/15 14:10 - Constitutional Appears: Chronically Ill - Head Exam Head Exam: NORMAL INSPECTION - Eye Exam Eye Exam: PERRL - ENT Exam ENT Exam: Mucous Membranes Moist, Normal Oropharynx - Respiratory Exam Respiratory Exam: Clear to Ausculation Bilateral, NORMAL BREATHING PATTERN. absent: Wheezes - Cardiovascular Exam Cardiovascular Exam: REGULAR RHYTHM, RRR, +S1, +S2 - GI/Abdominal Exam GI & Abdominal Exam: Normal Bowel Sounds Additional comments: PEG site c/d/i - Extremities Exam Extremities Exam: Normal Capillary Refill - Neurological Exam Neurological Exam: Awake - Psychiatric Exam Psychiatric exam: Normal Affect, Normal Mood Assessment and Plan - Assessment and Plan (Free Text) Assessment: 1) Anoxic encephalopathy Assessment & Plan: 06/09: no acute changes: continue with q2h turning, therapy, feeds through PEG site and suctioning trach routinely continue to monitor [place] labs Pending placement Status: Acute (2) Respiratory failure Assessment & Plan: 06/09: Continue trach care and suctioning as needed. Monitor Status: Acute (3) UTI (lower urinary tract infection) Assessment & Plan: Resolved Baker catheter in place Continue Ditropan 5mg via PEG TID Monitor Status: Acute (4) CAD (coronary artery disease) Assessment & Plan: s/p cardiac stents on 06/13/15 Continue ASA 81mg via PEG daily Continue Plavix 75mg via PEG daily Status: Acute (5) Seizures Assessment & Plan: Continue Dilantin 100mg via PEG TID Continue seizure precautions Monitor Status: Acute (6) Bed sore Assessment & Plan: Resolved Continue wound care Prevalon boots in place to avoid heel ulcer development Continue to turn patient q2hrs Monitor with skin checks Status: Acute (7) Electrolyte abnormality Assessment & Plan: 06/09: K 3.5 - replaced with 20meq Kcl oral soln into PEG (8) Leukocytosis Assessment & Plan: 06/09: afebrile, blood and urine cx ordered ; change baker f/u repeat CBC with diff next day AM (9) Prophylactic measure Assessment & Plan: Lovenox 40mg SC daily - renewed 06/09/16 Pepcid 20mg via PEG BID <Donavan Hallman - Last Filed: 06/12/16 18:16> Objective - Vital Signs/Intake and Output Vital Signs (last 24 hours): Temp Pulse Resp BP Pulse Ox 98.6 F 84 20 123/80 100 06/12/16 16:24 06/12/16 16:36 06/12/16 16:24 06/12/16 16:24 06/12/16 16:24 Intake and Output: 06/12/16 06/12/16 06:59 18:59 Intake Total 1450 650 Output Total 600 750 Balance 850 -100 - Medications Medications: Current Medications Aspirin (Aspirin Chewable) 81 mg PEG DAILY [facility] Last Admin: 06/12/16 10:40 Dose: 81 mg Clopidogrel Bisulfate (Plavix) 75 mg PEG DAILY [facility] Last Admin: 06/12/16 10:41 Dose: 75 mg Enoxaparin Sodium (Lovenox) 40 mg SC DAILY [facility] Last Admin: 06/12/16 10:41 Dose: 40 mg Famotidine (Pepcid) 20 mg PEG DAILY [facility] Last Admin: 06/12/16 10:41 Dose: 20 mg Mupirocin (Bactroban Ointment) 0 gm TOP DAILY [facility] Last Admin: 06/12/16 10:40 Dose: 1 applic Oxybutynin Chloride (Ditropan Tab) 5 mg PEG TID [facility] Last Admin: 06/12/16 13:35 Dose: 5 mg Phenytoin (Dilantin) 100 mg PEG TID [facility] Last Admin: 06/12/16 13:36 Dose: 100 mg - Labs Labs: 06/12/16 07:11 06/12/16 07:11 PT 10.6 SECONDS (9.7-12.2) 11/24/15 14:10 INR 1.0 11/24/15 14:10 APTT 25 SECONDS (21-34) 11/24/15 14:10 Attending/Attestation - Attestation I have personally seen and examined this patient.: Yes I have fully participated in the care of the patient.: Yes I have reviewed all pertinent clinical information, including history, physical exam and plan: Yes Notes (Text): Patient seen and examined with resident. Agree with resident's evaluation, assessment, and plan.
[2016-06-10 08:19] LABS: BASO % 0.3 % (0.0-2.0); EOS # 0.5 K/uL (0.0-0.7); EOS % 4.6 % (0.0-4.0); HEMOGLOBIN 12.5 g/dL (12.0-18.0); LYMPH % 19.6 % (20.0-40.0); MEAN CELL VOLUME 93.6 fL (80.0-94.0); MEAN CORPUSCULAR HEMOGLOBIN 30.2 pg (27.0-31.0); MEAN CORPUSCULAR HGB CONC 32.2 g/dL (33.0-37.0); MEAN PLATELET VOLUME 8.5 fL (7.2-11.7); MONO # 0.8 K/uL (0.0-0.8); MONO % 7.9 % (0.0-10.0); NEUT # 7.1 K/uL (1.8-7.0); NEUT % 67.6 % (50.0-75.0); NRBC % 0.1 % (0.0-2.0); RBC 4.14 Mil/uL (4.40-5.90); RED CELL DISTRIBUTION WIDTH 14.1 % (11.5-14.5); WHITE BLOOD COUNT 10.4 K/uL (4.8-10.8)
[2016-06-10 08:34] LABS: ALBUMIN 3.4 g/dL (3.5-5.0)
[2016-06-10 08:36] LABS: ALB/GLOB RATIO 0.9 (1.0-2.1); AST/SGOT 26 U/L (17-59); GFR NON-AFRICAN AMERICAN > 60
[2016-06-10 08:37] LABS: ALT/SGPT 39 U/L (21-72); BLOOD UREA NITROGEN 16 mg/dL (9-20); CALCIUM 8.9 mg/dl (8.6-10.4)
[2016-06-10] MEDS: Phenytoin 100 mg/4 ml Oral Susp UD PEG SCH ×3 (09:45→18:00)
[2016-06-10] MEDS: Enoxaparin 40 mg Syringe SC SCH (09:46)
--- NOTE | 2016-06-10 11:34 | CP.PCM.PN ---
<Ivnaia Bernal - Last Filed: 06/10/16 11:32> Subjective - Date & Time of Evaluation Date of Evaluation: 06/10/16 Time of Evaluation: 08:30 - Subjective Subjective: Patient seen and examined at bedside this AM. No acute changes at this time - ROS unattainable due to aphasia and anoxic encephalopathy. no acute changes overnight - trach and PEG c/d/i. Patient has a new baker placed yesterday. Patient had a elevated white count which has now come down today. Will follow up with the cultures. Objective - Vital Signs/Intake and Output Vital Signs (last 24 hours): Temp Pulse Resp BP Pulse Ox 98.8 F 82 20 143/88 97 06/10/16 09:30 06/10/16 09:30 06/10/16 09:30 06/10/16 09:30 06/10/16 09:30 Intake and Output: 06/10/16 06/10/16 06:59 18:59 Intake Total 1500 Output Total 1900 Balance -400 - Medications Medications: Current Medications Aspirin (Aspirin Chewable) 81 mg PEG DAILY [facility] Last Admin: 06/10/16 09:44 Dose: 81 mg Clopidogrel Bisulfate (Plavix) 75 mg PEG DAILY [facility] Last Admin: 06/10/16 09:43 Dose: 75 mg Enoxaparin Sodium (Lovenox) 40 mg SC DAILY [facility] Last Admin: 06/10/16 09:46 Dose: 40 mg Famotidine (Pepcid) 20 mg PEG DAILY [facility] Last Admin: 06/10/16 09:44 Dose: 20 mg Mupirocin (Bactroban Ointment) 0 gm TOP DAILY [facility] Last Admin: 06/10/16 09:45 Dose: 1 applic Oxybutynin Chloride (Ditropan Tab) 5 mg PEG TID [facility] Last Admin: 06/10/16 09:43 Dose: 5 mg Phenytoin (Dilantin) 100 mg PEG TID [facility] Last Admin: 06/10/16 09:45 Dose: 100 mg - Labs Labs: 06/10/16 07:59 06/10/16 07:59 PT 10.6 SECONDS (9.7-12.2) 11/24/15 14:10 INR 1.0 11/24/15 14:10 APTT 25 SECONDS (21-34) 11/24/15 14:10 - Constitutional Appears: Well - Head Exam Head Exam: ATRAUMATIC, NORMAL INSPECTION, NORMOCEPHALIC - Eye Exam Eye Exam: EOMI - ENT Exam ENT Exam: Mucous Membranes Moist - Respiratory Exam Respiratory Exam: Clear to Ausculation Bilateral, NORMAL BREATHING PATTERN (on trach). absent: Rales, Wheezes, Stridor - Cardiovascular Exam Cardiovascular Exam: REGULAR RHYTHM, +S1, +S2 - GI/Abdominal Exam GI & Abdominal Exam: Soft, Normal Bowel Sounds (PEG cite c/d/i). absent: Distended - Extremities Exam Extremities Exam: Normal Inspection, Pedal Edema (trace) - Neurological Exam Neurological Exam: Alert, Awake, Oriented x3 - Skin Skin Exam: Intact, Normal Color, Warm Assessment and Plan - Assessment and Plan (Free Text) Assessment: 1) Anoxic encephalopathy Assessment & Plan: 06/09: no acute changes: continue with q2h turning, therapy, feeds through PEG site and suctioning trach routinely continue to monitor weekly labs Pending placement Status: Acute (2) Respiratory failure Assessment & Plan: 06/09: Continue trach care and suctioning as needed. Monitor Status: Acute (3) UTI (lower urinary tract infection) Assessment & Plan: Resolved Baker catheter in place - new one placed yesterday Continue Ditropan 5mg via PEG TID Monitor Status: Acute (4) CAD (coronary artery disease) Assessment & Plan: s/p cardiac stents on 06/13/15 Continue ASA 81mg via PEG daily Continue Plavix 75mg via PEG daily Status: Acute (5) Seizures Assessment & Plan: Continue Dilantin 100mg via PEG TID Continue seizure precautions Monitor Status: Acute (6) Bed sore Assessment & Plan: Resolved Continue wound care Prevalon boots in place to avoid heel ulcer development Continue to turn patient q2hrs Monitor with skin checks Status: Acute (7) Electrolyte abnormality Assessment & Plan: 06/09: K 3.5 - replaced with 20meq Kcl oral soln into PEG (8) Leukocytosis Assessment & Plan: Afebrile Today WbBC trending down 10.4 from yesterday WBC 0n 06/09 = 11.8 f/u blood, urine cultures (9) Prophylactic measure Assessment & Plan: Lovenox 40mg SC daily - renewed 06/09/16 Pepcid 20mg via PEG BID Amandeep Real - Last Filed: 06/10/16 14:23> Objective - Vital Signs/Intake and Output Vital Signs (last 24 hours): Temp Pulse Resp BP Pulse Ox 98.8 F 82 20 143/88 97 06/10/16 09:30 06/10/16 09:30 06/10/16 09:30 06/10/16 09:30 06/10/16 09:30 Intake and Output: 06/10/16 06/10/16 06:59 18:59 Intake Total 1500 Output Total 1900 Balance -400 - Medications Medications: Current Medications Aspirin (Aspirin Chewable) 81 mg PEG DAILY [facility] Last Admin: 06/10/16 09:44 Dose: 81 mg Clopidogrel Bisulfate (Plavix) 75 mg PEG DAILY [facility] Last Admin: 06/10/16 09:43 Dose: 75 mg Enoxaparin Sodium (Lovenox) 40 mg SC DAILY [facility] Last Admin: 06/10/16 09:46 Dose: 40 mg Famotidine (Pepcid) 20 mg PEG DAILY [facility] Last Admin: 06/10/16 09:44 Dose: 20 mg Mupirocin (Bactroban Ointment) 0 gm TOP DAILY [facility] Last Admin: 06/10/16 09:45 Dose: 1 applic Oxybutynin Chloride (Ditropan Tab) 5 mg PEG TID [facility] Last Admin: 06/10/16 09:43 Dose: 5 mg Phenytoin (Dilantin) 100 mg PEG TID [facility] Last Admin: 06/10/16 09:45 Dose: 100 mg - Labs Labs: 06/10/16 07:59 06/10/16 07:59 PT 10.6 SECONDS (9.7-12.2) 11/24/15 14:10 INR 1.0 11/24/15 14:10 APTT 25 SECONDS (21-34) 11/24/15 14:10 Assessment and Plan (1) Respiratory failure Status: Acute (2) Anoxic encephalopathy Status: Acute (3) STEMI (ST elevation myocardial infarction) Status: Acute (4) Cardiac arrest Status: Acute (5) Seizures Status: Acute (6) Prophylactic measure Status: Acute Attending/Attestation - Attestation I have personally seen and examined this patient.: Yes I have fully participated in the care of the patient.: Yes I have reviewed all pertinent clinical information, including history, physical exam and plan: Yes Notes (Text): 06/10/16 14:22 Medical Attending: Patient was seen and examined by me. Agree with the above note. At this time no acute changes from before. Per resident patient was more responsive to commands in the morning. Currently at rest. thank you Amandeep Chavis
[2016-06-11 09:09] LABS: ALBUMIN 3.5 g/dL (3.5-5.0)
[2016-06-11 09:11] LABS: ALB/GLOB RATIO 0.8 (1.0-2.1); AST/SGOT 50 U/L (17-59); GFR NON-AFRICAN AMERICAN > 60
[2016-06-11 09:12] LABS: ALT/SGPT 36 U/L (21-72); BLOOD UREA NITROGEN 24 mg/dL (9-20); CALCIUM 9.1 mg/dl (8.6-10.4)
[2016-06-11] MEDS: Enoxaparin 40 mg Syringe SC SCH (11:11)
[2016-06-11] MEDS: Phenytoin 100 mg/4 ml Oral Susp UD PEG SCH ×3 (11:11→18:00)
--- NOTE | 2016-06-11 11:28 | CP.PCM.PN ---
<Drake Alicea - Last Filed: 06/11/16 11:24> Subjective - Date & Time of Evaluation Date of Evaluation: 06/11/16 Time of Evaluation: 07:00 - Subjective Subjective: Patient seen and examined at bedside this morning. No acute changes at this time - ROS unattainable due to aphasia and anoxic encephalopathy. No acute changes overnight - trach and PEG c are clean, dry, and intact. Patient has a baker in place. Patient appears comfortable and resting peacefully. Objective - Vital Signs/Intake and Output Vital Signs (last 24 hours): Temp Pulse Resp BP Pulse Ox 98.5 F 83 20 128/83 99 06/11/16 08:33 06/11/16 08:33 06/11/16 08:33 06/11/16 07:00 06/11/16 08:33 Intake and Output: 06/11/16 06/11/16 06:59 18:59 Intake Total 750 650 Output Total 300 400 Balance 450 250 - Medications Medications: Current Medications Aspirin (Aspirin Chewable) 81 mg PEG DAILY [facility] Last Admin: 06/11/16 11:07 Dose: 81 mg Clopidogrel Bisulfate (Plavix) 75 mg PEG DAILY [facility] Last Admin: 06/11/16 11:08 Dose: 75 mg Enoxaparin Sodium (Lovenox) 40 mg SC DAILY [facility] Last Admin: 06/11/16 11:11 Dose: 40 mg Famotidine (Pepcid) 20 mg PEG DAILY [facility] Last Admin: 06/11/16 11:08 Dose: 20 mg Mupirocin (Bactroban Ointment) 0 gm TOP DAILY [facility] Last Admin: 06/10/16 09:45 Dose: 1 applic Oxybutynin Chloride (Ditropan Tab) 5 mg PEG TID [facility] Last Admin: 06/11/16 11:09 Dose: 5 mg Phenytoin (Dilantin) 100 mg PEG TID [facility] Last Admin: 06/11/16 11:11 Dose: 100 mg - Labs Labs: 06/10/16 07:59 06/11/16 08:41 PT 10.6 SECONDS (9.7-12.2) 11/24/15 14:10 INR 1.0 11/24/15 14:10 APTT 25 SECONDS (21-34) 11/24/15 14:10 - Constitutional Appears: No Acute Distress - Head Exam Head Exam: ATRAUMATIC, NORMAL INSPECTION - Eye Exam Eye Exam: EOMI - ENT Exam ENT Exam: Mucous Membranes Moist - Respiratory Exam Respiratory Exam: Clear to Ausculation Bilateral, NORMAL BREATHING PATTERN - Cardiovascular Exam Cardiovascular Exam: REGULAR RHYTHM, +S1, +S2 - GI/Abdominal Exam GI & Abdominal Exam: Soft, Normal Bowel Sounds. absent: Tenderness - Exam Additional comments: baker in place - Extremities Exam Extremities Exam: Normal Inspection, Pedal Edema (trace) - Neurological Exam Neurological Exam: Awake - Skin Skin Exam: Dry, Normal Color, Warm Assessment and Plan - Assessment and Plan (Free Text) Assessment: Assessment: 1) Anoxic encephalopathy Assessment & Plan: 06/11: no acute changes: continue with q2h turning, therapy, feeds through PEG site and suctioning trach routinely continue to monitor weekly labs Pending placement Status: Acute (2) Respiratory failure Assessment & Plan: 06/11: Continue trach care and suctioning as needed. Monitor Status: Acute (3) UTI (lower urinary tract infection) Assessment & Plan: Resolved Baker catheter in place Continue Ditropan 5mg via PEG TID Monitor Status: Acute (4) CAD (coronary artery disease) Assessment & Plan: s/p cardiac stents on 06/13/15 Continue ASA 81mg via PEG daily Continue Plavix 75mg via PEG daily Status: Acute (5) Seizures Assessment & Plan: Continue Dilantin 100mg via PEG TID Continue seizure precautions Monitor Status: Acute (6) Bed sore Assessment & Plan: Resolved Continue wound care Prevalon boots in place to avoid heel ulcer development Continue to turn patient q2hrs Monitor with skin checks Status: Acute (7) Prophylactic measure Assessment & Plan: Lovenox 40mg SC daily Pepcid 20mg via PEG BID <Amandeep Chavis - Last Filed: 06/11/16 13:41> Objective - Vital Signs/Intake and Output Vital Signs (last 24 hours): Temp Pulse Resp BP Pulse Ox 98.5 F 83 20 128/83 99 06/11/16 08:33 06/11/16 08:33 06/11/16 08:33 06/11/16 07:00 06/11/16 08:33 Intake and Output: 06/11/16 06/11/16 06:59 18:59 Intake Total 750 650 Output Total 300 400 Balance 450 250 - Medications Medications: Current Medications Aspirin (Aspirin Chewable) 81 mg PEG DAILY [facility] Last Admin: 06/11/16 11:07 Dose: 81 mg Clopidogrel Bisulfate (Plavix) 75 mg PEG DAILY [facility] Last Admin: 06/11/16 11:08 Dose: 75 mg Enoxaparin Sodium (Lovenox) 40 mg SC DAILY [facility] Last Admin: 06/11/16 11:11 Dose: 40 mg Famotidine (Pepcid) 20 mg PEG DAILY [facility] Last Admin: 06/11/16 11:08 Dose: 20 mg Mupirocin (Bactroban Ointment) 0 gm TOP DAILY [facility] Last Admin: 06/10/16 09:45 Dose: 1 applic Oxybutynin Chloride (Ditropan Tab) 5 mg PEG TID [facility] Last Admin: 06/11/16 11:09 Dose: 5 mg Phenytoin (Dilantin) 100 mg PEG TID [facility] Last Admin: 06/11/16 11:11 Dose: 100 mg - Labs Labs: 06/10/16 07:59 06/11/16 08:41 PT 10.6 SECONDS (9.7-12.2) 11/24/15 14:10 INR 1.0 11/24/15 14:10 APTT 25 SECONDS (21-34) 11/24/15 14:10 Assessment and Plan (1) Respiratory failure Status: Acute (2) Anoxic encephalopathy Status: Acute (3) STEMI (ST elevation myocardial infarction) Status: Acute (4) Cardiac arrest Status: Acute (5) Seizures Status: Acute (6) Prophylactic measure Status: Acute Attending/Attestation - Attestation I have personally seen and examined this patient.: Yes I have fully participated in the care of the patient.: Yes I have reviewed all pertinent clinical information, including history, physical exam and plan: Yes Notes (Text): 06/11/16 13:40 Medical Attending: Agree with the above note by resident. Patient was seen and examined by me. There is no change from before. Today he seemed to open his eyes more. Resident explained that earlier in the day did appear to be moving legs. thank you Amandeep Chavis
[2016-06-12 07:18] LABS: BASO % 0.4 % (0.0-2.0); EOS # 0.4 K/uL (0.0-0.7); LYMPH # 1.7 K/uL (1.0-4.3); LYMPH % 17.8 % (20.0-40.0); MEAN CELL VOLUME 92.5 fL (80.0-94.0); MEAN CORPUSCULAR HEMOGLOBIN 29.8 pg (27.0-31.0); MEAN CORPUSCULAR HGB CONC 32.2 g/dL (33.0-37.0); MEAN PLATELET VOLUME 8.3 fL (7.2-11.7); MONO % 9.9 % (0.0-10.0); NEUT # 6.5 K/uL (1.8-7.0); NEUT % 67.9 % (50.0-75.0); NRBC % 0.1 % (0.0-2.0); RBC 4.36 Mil/uL (4.40-5.90); WHITE BLOOD COUNT 9.6 K/uL (4.8-10.8)
[2016-06-12 07:52] LABS: ALBUMIN 3.6 g/dL (3.5-5.0)
[2016-06-12 07:55] LABS: ALB/GLOB RATIO 0.8 (1.0-2.1); ALT/SGPT 46 U/L (21-72); AST/SGOT 36 U/L (17-59); BLOOD UREA NITROGEN 22 mg/dL (9-20); GFR NON-AFRICAN AMERICAN > 60
[2016-06-12 07:56] LABS: CALCIUM 8.7 mg/dl (8.6-10.4)
[2016-06-12] MEDS: Phenytoin 100 mg/4 ml Oral Susp UD PEG SCH ×3 (10:40→18:00)
[2016-06-12] MEDS: Enoxaparin 40 mg Syringe SC SCH (10:41)
--- NOTE | 2016-06-12 15:51 | CP.PCM.PN ---
<Drake Alicea - Last Filed: 06/12/16 15:48> Subjective - Date & Time of Evaluation Date of Evaluation: 06/12/16 Time of Evaluation: 07:15 - Subjective Subjective: Patient seen and examined at bedside this morning. Patient appears comfortable and resting peacefully. No acute changes at this time - ROS unattainable due to aphasia and anoxic encephalopathy. No acute changes overnight - trach and PEG c are clean, dry, and intact. Patient has a baker in place. Objective - Vital Signs/Intake and Output Vital Signs (last 24 hours): Temp Pulse Resp BP Pulse Ox 9901 F H 81 20 125/82 99 06/12/16 09:00 06/12/16 09:00 06/12/16 09:00 06/12/16 09:00 06/12/16 09:00 Intake and Output: 06/12/16 06/12/16 06:59 18:59 Intake Total 1450 650 Output Total 600 750 Balance 850 -100 - Medications Medications: Current Medications Aspirin (Aspirin Chewable) 81 mg PEG DAILY [facility] Last Admin: 06/12/16 10:40 Dose: 81 mg Clopidogrel Bisulfate (Plavix) 75 mg PEG DAILY [facility] Last Admin: 06/12/16 10:41 Dose: 75 mg Enoxaparin Sodium (Lovenox) 40 mg SC DAILY [facility] Last Admin: 06/12/16 10:41 Dose: 40 mg Famotidine (Pepcid) 20 mg PEG DAILY [facility] Last Admin: 06/12/16 10:41 Dose: 20 mg Mupirocin (Bactroban Ointment) 0 gm TOP DAILY [facility] Last Admin: 06/12/16 10:40 Dose: 1 applic Oxybutynin Chloride (Ditropan Tab) 5 mg PEG TID [facility] Last Admin: 06/12/16 13:35 Dose: 5 mg Phenytoin (Dilantin) 100 mg PEG TID [facility] Last Admin: 06/12/16 13:36 Dose: 100 mg - Labs Labs: 06/12/16 07:11 06/12/16 07:11 PT 10.6 SECONDS (9.7-12.2) 11/24/15 14:10 INR 1.0 11/24/15 14:10 APTT 25 SECONDS (21-34) 11/24/15 14:10 - Constitutional Appears: Non-toxic, No Acute Distress - Head Exam Head Exam: ATRAUMATIC, NORMAL INSPECTION - Eye Exam Eye Exam: EOMI - ENT Exam ENT Exam: Mucous Membranes Moist - Respiratory Exam Respiratory Exam: Clear to Ausculation Bilateral, NORMAL BREATHING PATTERN - Cardiovascular Exam Cardiovascular Exam: REGULAR RHYTHM, +S1, +S2 - GI/Abdominal Exam GI & Abdominal Exam: Soft, Normal Bowel Sounds - Exam Additional comments: baker in place - Extremities Exam Extremities Exam: Normal Inspection - Neurological Exam Neurological Exam: Awake - Skin Skin Exam: Dry, Intact, Normal Color, Warm Assessment and Plan - Assessment and Plan (Free Text) Assessment: 1) Anoxic encephalopathy Assessment & Plan: 06/12: no acute changes: continue with q2h turning, therapy, feeds through PEG site and suctioning trach routinely continue to monitor weekly labs Pending placement Status: Acute (2) Respiratory failure Assessment & Plan: 06/12: Continue trach care and suctioning as needed. Monitor Status: Acute (3) UTI (lower urinary tract infection) Assessment & Plan: Resolved Baker catheter in place Continue Ditropan 5mg via PEG TID Monitor Status: Acute (4) CAD (coronary artery disease) Assessment & Plan: s/p cardiac stents on 06/13/15 Continue ASA 81mg via PEG daily Continue Plavix 75mg via PEG daily Status: Acute (5) Seizures Assessment & Plan: Continue Dilantin 100mg via PEG TID Continue seizure precautions Monitor Status: Acute (6) Bed sore Assessment & Plan: Resolved Continue wound care Prevalon boots in place to avoid heel ulcer development Continue to turn patient q2hrs Monitor with skin checks Status: Acute (7) Prophylactic measure Assessment & Plan: Lovenox 40mg SC daily Pepcid 20mg via PEG BID <Donavan Hallman - Last Filed: 06/18/16 18:00> Objective - Vital Signs/Intake and Output Vital Signs (last 24 hours): Temp Pulse Resp BP Pulse Ox 98.2 F 81 20 126/80 98 06/18/16 16:29 06/18/16 16:29 06/18/16 16:29 06/18/16 16:29 06/18/16 16:29 Intake and Output: 06/18/16 06/18/16 06:59 18:59 Intake Total 1250 700 Output Total 1100 400 Balance 150 300 - Medications Medications: Current Medications Aspirin (Aspirin Chewable) 81 mg PEG DAILY [facility] Last Admin: 06/18/16 11:06 Dose: 81 mg Clopidogrel Bisulfate (Plavix) 75 mg PEG DAILY [facility] Last Admin: 06/18/16 11:07 Dose: 75 mg Enoxaparin Sodium (Lovenox) 40 mg SC DAILY [facility] Last Admin: 06/18/16 11:05 Dose: 40 mg Famotidine (Pepcid) 20 mg PEG DAILY [facility] Last Admin: 06/18/16 11:06 Dose: 20 mg Mupirocin (Bactroban Ointment) 0 gm TOP DAILY [facility] Last Admin: 06/18/16 11:10 Dose: 1 applic Oxybutynin Chloride (Ditropan Tab) 5 mg PEG TID [facility] Last Admin: 06/18/16 17:18 Dose: 5 mg Phenytoin (Dilantin) 100 mg PEG TID [facility] Last Admin: 06/18/16 17:18 Dose: 100 mg - Labs Labs: 06/16/16 08:58 06/18/16 08:20 PT 10.6 SECONDS (9.7-12.2) 11/24/15 14:10 INR 1.0 11/24/15 14:10 APTT 25 SECONDS (21-34) 11/24/15 14:10 Attending/Attestation - Attestation I have personally seen and examined this patient.: Yes I have fully participated in the care of the patient.: Yes I have reviewed all pertinent clinical information, including history, physical exam and plan: Yes Notes (Text): Patient seen and examined agree with resident's evaluation, assessment and plan.
[2016-06-13] MEDS: Enoxaparin 40 mg Syringe SC SCH (09:52)
[2016-06-13] MEDS: Phenytoin 100 mg/4 ml Oral Susp UD PEG SCH ×3 (09:53→17:41)
--- NOTE | 2016-06-13 11:27 | CP.PCM.PN ---
<Drake Alicea - Last Filed: 06/13/16 13:45> Subjective - Date & Time of Evaluation Date of Evaluation: 06/13/16 Time of Evaluation: 07:00 - Subjective Subjective: Patient seen and examined at bedside this morning. Patient appears comfortable and resting peacefully. No acute changes at this time - ROS unattainable due to aphasia and anoxic encephalopathy. No acute changes overnight - trach and PEG c are clean, dry, and intact. Patient has a baker in place. Patient appears comfortable and resting peacefully. Objective - Vital Signs/Intake and Output Vital Signs (last 24 hours): Temp Pulse Resp BP Pulse Ox 98.9 F 79 20 103/67 100 06/13/16 08:00 06/13/16 08:00 06/13/16 08:00 06/13/16 08:00 06/13/16 08:00 Intake and Output: 06/13/16 06/13/16 06:59 18:59 Intake Total 800 650 Output Total 600 400 Balance 200 250 - Medications Medications: Current Medications Aspirin (Aspirin Chewable) 81 mg PEG DAILY [facility] Last Admin: 06/13/16 09:53 Dose: 81 mg Clopidogrel Bisulfate (Plavix) 75 mg PEG DAILY [facility] Last Admin: 06/13/16 09:53 Dose: 75 mg Enoxaparin Sodium (Lovenox) 40 mg SC DAILY [facility] Last Admin: 06/13/16 09:52 Dose: 40 mg Famotidine (Pepcid) 20 mg PEG DAILY [facility] Last Admin: 06/13/16 09:53 Dose: 20 mg Mupirocin (Bactroban Ointment) 0 gm TOP DAILY [facility] Last Admin: 06/13/16 09:55 Dose: 1 applic Oxybutynin Chloride (Ditropan Tab) 5 mg PEG TID [facility] Last Admin: 06/13/16 09:53 Dose: 5 mg Phenytoin (Dilantin) 100 mg PEG TID [facility] Last Admin: 06/13/16 09:53 Dose: 100 mg - Labs Labs: 06/12/16 07:11 06/12/16 07:11 PT 10.6 SECONDS (9.7-12.2) 11/24/15 14:10 INR 1.0 11/24/15 14:10 APTT 25 SECONDS (21-34) 01/02/16 14:10 - Constitutional Appears: Non-toxic, No Acute Distress - Head Exam Head Exam: ATRAUMATIC, NORMAL INSPECTION - Eye Exam Eye Exam: EOMI - ENT Exam ENT Exam: Mucous Membranes Moist - Neck Exam Additional comments: trach in place - Respiratory Exam Respiratory Exam: Clear to Ausculation Bilateral, NORMAL BREATHING PATTERN - Cardiovascular Exam Cardiovascular Exam: REGULAR RHYTHM, +S1, +S2 - GI/Abdominal Exam GI & Abdominal Exam: Soft, Normal Bowel Sounds Additional comments: PEG tube in place - Exam Exam: NORMAL INSPECTION Additional comments: baker in place - Extremities Exam Extremities Exam: Normal Capillary Refill - Neurological Exam Neurological Exam: Awake - Skin Skin Exam: Dry, Normal Color, Warm Assessment and Plan - Assessment and Plan (Free Text) Assessment: Assessment: 1) Anoxic encephalopathy Assessment & Plan: 06/13: no acute changes: continue with q2h turning, therapy, feeds through PEG site and suctioning trach routinely continue to monitor weekly labs Pending placement Status: Acute (2) Respiratory failure Assessment & Plan: 06/13: Continue trach care and suctioning as needed. Monitor Status: Acute (3) UTI (lower urinary tract infection) Assessment & Plan: Resolved Baker catheter in place Continue Ditropan 5mg via PEG TID Monitor Status: Acute (4) CAD (coronary artery disease) Assessment & Plan: s/p cardiac stents on 06/13/15 Continue ASA 81mg via PEG daily Continue Plavix 75mg via PEG daily Status: Acute (5) Seizures Assessment & Plan: Continue Dilantin 100mg via PEG TID Continue seizure precautions Monitor Status: Acute (6) Bed sore Assessment & Plan: Resolved Continue wound care Prevalon boots in place to avoid heel ulcer development Continue to turn patient q2hrs Monitor with skin checks Status: Acute (7) Prophylactic measure Assessment & Plan: Lovenox 40mg SC daily Pepcid 20mg via PEG BID <Donavan Hallman - Last Filed: 06/19/16 17:05> Objective - Vital Signs/Intake and Output Vital Signs (last 24 hours): Temp Pulse Resp BP Pulse Ox 97.5 F L 82 20 135/93 H 20 L 06/19/16 15:00 06/19/16 15:00 06/19/16 15:00 06/19/16 15:00 06/19/16 15:00 Intake and Output: 06/19/16 06/19/16 06:59 18:59 Intake Total 800 700 Output Total 1825 500 Balance -1025 200 - Medications Medications: Current Medications Aspirin (Aspirin Chewable) 81 mg PEG DAILY [facility] Last Admin: 06/19/16 10:00 Dose: 81 mg Clopidogrel Bisulfate (Plavix) 75 mg PEG DAILY [facility] Last Admin: 06/19/16 10:40 Dose: 75 mg Enoxaparin Sodium (Lovenox) 40 mg SC DAILY [facility] Last Admin: 06/19/16 10:40 Dose: 40 mg Famotidine (Pepcid) 20 mg PEG DAILY [facility] Last Admin: 06/19/16 10:40 Dose: 20 mg Mupirocin (Bactroban Ointment) 0 gm TOP DAILY [facility] Last Admin: 06/19/16 10:00 Dose: 1 applic Oxybutynin Chloride (Ditropan Tab) 5 mg PEG TID [facility] Last Admin: 06/19/16 14:48 Dose: 5 mg Phenytoin (Dilantin) 100 mg PEG TID [facility] Last Admin: 06/19/16 14:48 Dose: 100 mg - Labs Labs: 06/19/16 08:06 06/18/16 08:20 PT 10.6 SECONDS (9.7-12.2) 11/24/15 14:10 INR 1.0 11/24/15 14:10 APTT 25 SECONDS (21-34) 11/24/15 14:10 Attending/Attestation - Attestation I have personally seen and examined this patient.: Yes I have fully participated in the care of the patient.: Yes I have reviewed all pertinent clinical information, including history, physical exam and plan: Yes Notes (Text): Patient seen and examined with resident. Agree with the resident's evaluation, assessment and plan.
--- NOTE | 2016-06-14 03:56 | CP.PCM.PN ---
<GabeIvania - Last Filed: 06/14/16 03:53> Subjective - Date & Time of Evaluation Date of Evaluation: 06/14/16 Time of Evaluation: 03:00 - Subjective Subjective: Patient seen and examined at bedside this morning. Patient appears comfortable and resting peacefully. No acute changes at this time - ROS unattainable due to aphasia and anoxic encephalopathy. No acute changes overnight - trach and PEG c are clean, dry, and intact. Patient has a baker in place. Remains afebrile. Objective - Vital Signs/Intake and Output Vital Signs (last 24 hours): Temp Pulse Resp BP Pulse Ox 98.6 F 85 20 118/80 0 L 06/14/16 01:18 06/14/16 01:18 06/14/16 01:18 06/14/16 01:18 06/14/16 01:18 Intake and Output: 06/13/16 06/14/16 18:59 06:59 Intake Total 1300 550 Output Total 600 400 Balance 700 150 - Medications Medications: Current Medications Aspirin (Aspirin Chewable) 81 mg PEG DAILY [facility] Last Admin: 06/13/16 09:53 Dose: 81 mg Clopidogrel Bisulfate (Plavix) 75 mg PEG DAILY [facility] Last Admin: 06/13/16 09:53 Dose: 75 mg Enoxaparin Sodium (Lovenox) 40 mg SC DAILY [facility] Last Admin: 06/13/16 09:52 Dose: 40 mg Famotidine (Pepcid) 20 mg PEG DAILY [facility] Last Admin: 06/13/16 09:53 Dose: 20 mg Mupirocin (Bactroban Ointment) 0 gm TOP DAILY [facility] Last Admin: 06/13/16 09:55 Dose: 1 applic Oxybutynin Chloride (Ditropan Tab) 5 mg PEG TID [facility] Last Admin: 06/13/16 17:41 Dose: 5 mg Phenytoin (Dilantin) 100 mg PEG TID [facility] Last Admin: 06/13/16 17:41 Dose: 100 mg - Labs Labs: 06/12/16 07:11 06/12/16 07:11 PT 10.6 SECONDS (9.7-12.2) 11/24/15 14:10 INR 1.0 11/24/15 14:10 APTT 25 SECONDS (21-34) 11/24/15 14:10 - Constitutional Appears: Well, Non-toxic, No Acute Distress - Head Exam Head Exam: ATRAUMATIC, NORMAL INSPECTION - Eye Exam Pupil Exam: NORMAL ACCOMODATION - ENT Exam ENT Exam: Mucous Membranes Moist - Respiratory Exam Respiratory Exam: Clear to Ausculation Bilateral, NORMAL BREATHING PATTERN. absent: Accessory Muscle Use, Rales (trach/vent support), Rhonchi, Wheezes - Cardiovascular Exam Cardiovascular Exam: REGULAR RHYTHM, +S1, +S2 - GI/Abdominal Exam GI & Abdominal Exam: Soft, Normal Bowel Sounds. absent: Tenderness Additional comments: peg in place - Exam Exam: NORMAL INSPECTION (baker in place) - Extremities Exam Extremities Exam: Normal Inspection - Neurological Exam Neurological Exam: Awake. absent: Alert, Oriented x3 - Skin Skin Exam: Dry, Normal Color, Warm Assessment and Plan - Assessment and Plan (Free Text) Assessment: 1) Anoxic encephalopathy Assessment & Plan: 06/13: no acute changes: continue with q2h turning, therapy, feeds through PEG site and suctioning trach routinely continue to monitor weekly labs Pending placement 06/09 blood cultures negative Status: Acute (2) Respiratory failure Assessment & Plan: 06/13: Continue trach care and suctioning as needed. Monitor Status: Acute (3) UTI (lower urinary tract infection) Assessment & Plan: Cultures contaminated. Resolved Baker catheter in place Continue Ditropan 5mg via PEG TID Monitor Status: Acute (4) CAD (coronary artery disease) Assessment & Plan: s/p cardiac stents on 06/13/15 Continue ASA 81mg via PEG daily Continue Plavix 75mg via PEG daily Status: Acute (5) Seizures Assessment & Plan: Continue Dilantin 100mg via PEG TID Continue seizure precautions Monitor Status: Acute (6) Bed sore Assessment & Plan: Resolved Continue wound care Prevalon boots in place to avoid heel ulcer development Continue to turn patient q2hrs Monitor with skin checks Status: Acute (7) Prophylactic measure Assessment & Plan: Lovenox 40mg SC daily Pepcid 20mg via PEG BID <Donavan Hallman - Last Filed: 06/19/16 17:58> Objective - Vital Signs/Intake and Output Vital Signs (last 24 hours): Temp Pulse Resp BP Pulse Ox 97.5 F L 82 20 135/93 H 20 L 06/19/16 15:00 06/19/16 15:00 06/19/16 15:00 06/19/16 15:00 06/19/16 15:00 Intake and Output: 06/19/16 06/19/16 06:59 18:59 Intake Total 800 700 Output Total 1825 500 Balance -1025 200 - Medications Medications: Current Medications Aspirin (Aspirin Chewable) 81 mg PEG DAILY [facility] Last Admin: 06/19/16 10:00 Dose: 81 mg Clopidogrel Bisulfate (Plavix) 75 mg PEG DAILY [facility] Last Admin: 06/19/16 10:40 Dose: 75 mg Enoxaparin Sodium (Lovenox) 40 mg SC DAILY [facility] Last Admin: 06/19/16 10:40 Dose: 40 mg Famotidine (Pepcid) 20 mg PEG DAILY [facility] Last Admin: 06/19/16 10:40 Dose: 20 mg Mupirocin (Bactroban Ointment) 0 gm TOP DAILY [facility] Last Admin: 06/19/16 10:00 Dose: 1 applic Oxybutynin Chloride (Ditropan Tab) 5 mg PEG TID [facility] Last Admin: 06/19/16 14:48 Dose: 5 mg Phenytoin (Dilantin) 100 mg PEG TID [facility] Last Admin: 06/19/16 14:48 Dose: 100 mg - Labs Labs: 06/19/16 08:06 06/18/16 08:20 PT 10.6 SECONDS (9.7-12.2) 11/24/15 14:10 INR 1.0 11/24/15 14:10 APTT 25 SECONDS (21-34) 11/24/15 14:10 Attending/Attestation - Attestation I have personally seen and examined this patient.: Yes I have fully participated in the care of the patient.: Yes I have reviewed all pertinent clinical information, including history, physical exam and plan: Yes Notes (Text): Patient seen and examined with resident. Agree with resident's evaluation, assessment and plan.
[2016-06-14] MEDS: Phenytoin 100 mg/4 ml Oral Susp UD PEG SCH ×3 (09:35→17:37)
[2016-06-14] MEDS: Enoxaparin 40 mg Syringe SC SCH (09:36)
--- NOTE | 2016-06-15 04:07 | CP.PCM.PN ---
<GabeIvania - Last Filed: 06/15/16 04:03> Subjective - Date & Time of Evaluation Date of Evaluation: 06/15/16 Time of Evaluation: 12:10 - Subjective Subjective: Patient seen and examined at bedside this morning. Patient appears comfortable and resting peacefully. No acute changes at this time - ROS unattainable due to aphasia and anoxic encephalopathy. No acute changes overnight - trach and PEG c are clean, dry, and intact. Patient has a baker in place. Remains afebrile. Blood cultures negative. Objective - Vital Signs/Intake and Output Vital Signs (last 24 hours): Temp Pulse Resp BP Pulse Ox 98.8 F 85 21 132/82 99 06/15/16 00:08 06/15/16 00:08 06/15/16 00:08 06/15/16 00:08 06/15/16 00:08 Intake and Output: 06/14/16 06/15/16 18:59 06:59 Intake Total 550 750 Output Total 400 400 Balance 150 350 - Medications Medications: Current Medications Aspirin (Aspirin Chewable) 81 mg PEG DAILY [facility] Last Admin: 06/14/16 09:35 Dose: 81 mg Clopidogrel Bisulfate (Plavix) 75 mg PEG DAILY [facility] Last Admin: 06/14/16 09:35 Dose: 75 mg Enoxaparin Sodium (Lovenox) 40 mg SC DAILY [facility] Last Admin: 06/14/16 09:36 Dose: 40 mg Famotidine (Pepcid) 20 mg PEG DAILY [facility] Last Admin: 06/14/16 09:35 Dose: 20 mg Mupirocin (Bactroban Ointment) 0 gm TOP DAILY [facility] Last Admin: 06/14/16 09:40 Dose: 1 applic Oxybutynin Chloride (Ditropan Tab) 5 mg PEG TID [facility] Last Admin: 06/14/16 17:37 Dose: 5 mg Phenytoin (Dilantin) 100 mg PEG TID [facility] Last Admin: 06/14/16 17:37 Dose: 100 mg - Labs Labs: 06/12/16 07:11 06/12/16 07:11 PT 10.6 SECONDS (9.7-12.2) 11/24/15 14:10 INR 1.0 11/24/15 14:10 APTT 25 SECONDS (21-34) 11/24/15 14:10 - Constitutional Appears: Non-toxic, No Acute Distress - Head Exam Head Exam: ATRAUMATIC, NORMAL INSPECTION - Respiratory Exam Respiratory Exam: Clear to Ausculation Bilateral, NORMAL BREATHING PATTERN. absent: Rales, Rhonchi, Wheezes, Respiratory Distress, Stridor - Cardiovascular Exam Cardiovascular Exam: REGULAR RHYTHM, +S1, +S2 - GI/Abdominal Exam GI & Abdominal Exam: Soft, Normal Bowel Sounds. absent: Distended, Firm, Tenderness - Extremities Exam Extremities Exam: Pedal Edema - Neurological Exam Neurological Exam: Awake. absent: Alert, Oriented x3 - Skin Skin Exam: Normal Color, Warm Assessment and Plan - Assessment and Plan (Free Text) Assessment: 1) Anoxic encephalopathy Assessment & Plan: 06/13: no acute changes: continue with q2h turning, therapy, feeds through PEG site and suctioning trach routinely continue to monitor weekly labs Pending placement 06/09 blood cultures negative Status: Acute (2) Respiratory failure Assessment & Plan: 06/13: Continue trach care and suctioning as needed. Monitor Status: Acute (3) UTI (lower urinary tract infection) Assessment & Plan: 06/09 urine culture negative Cultures contaminated. Resolved Baker catheter in place Continue Ditropan 5mg via PEG TID Monitor Status: Acute (4) CAD (coronary artery disease) Assessment & Plan: s/p cardiac stents on 06/13/15 Continue ASA 81mg via PEG daily Continue Plavix 75mg via PEG daily Status: Acute (5) Seizures Assessment & Plan: Continue Dilantin 100mg via PEG TID Continue seizure precautions Monitor Status: Acute (6) Bed sore Assessment & Plan: Resolved Continue wound care Prevalon boots in place to avoid heel ulcer development Continue to turn patient q2hrs Monitor with skin checks Status: Acute (7) Prophylactic measure Assessment & Plan: Lovenox 40mg SC daily Pepcid 20mg via PEG BID <Donavan Hallman - Last Filed: 06/22/16 16:28> Objective - Vital Signs/Intake and Output Vital Signs (last 24 hours): Temp Pulse Resp BP Pulse Ox 98 F 72 18 122/83 99 06/22/16 07:44 06/22/16 07:44 06/22/16 07:44 06/22/16 07:44 06/22/16 07:44 Intake and Output: 07/31/16 07/31/16 06:59 18:59 Intake Total 1550 Output Total 1400 Balance 150 - Medications Medications: Current Medications Aspirin (Aspirin Chewable) 81 mg PEG DAILY [facility] Last Admin: 06/22/16 09:06 Dose: 81 mg Clopidogrel Bisulfate (Plavix) 75 mg PEG DAILY [facility] Last Admin: 06/22/16 09:06 Dose: 75 mg Enoxaparin Sodium (Lovenox) 40 mg SC DAILY [facility] Last Admin: 06/22/16 09:06 Dose: 40 mg Famotidine (Pepcid) 20 mg PEG DAILY [facility] Last Admin: 06/22/16 09:06 Dose: 20 mg Fluconazole (Diflucan) 150 mg PO DAILY [facility] Stop: 06/27/16 11:30 Last Admin: 06/22/16 09:05 Dose: 150 mg Mupirocin (Bactroban Ointment) 0 gm TOP DAILY [facility] Last Admin: 06/22/16 10:00 Dose: 1 applic - Labs Labs: 06/19/16 08:06 06/18/16 08:20 PT 10.6 SECONDS (9.7-12.2) 11/24/15 14:10 INR 1.0 11/24/15 14:10 APTT 25 SECONDS (21-34) 11/24/15 14:10 Attending/Attestation - Attestation I have personally seen and examined this patient.: Yes I have fully participated in the care of the patient.: Yes I have reviewed all pertinent clinical information, including history, physical exam and plan: Yes Notes (Text): Patient seen and examined with resident. Agree with resident's evaluation, assessment and plan.
[2016-06-15] MEDS: Phenytoin 100 mg/4 ml Oral Susp UD PEG SCH ×3 (10:03→18:15)
[2016-06-15] MEDS: Enoxaparin 40 mg Syringe SC SCH (10:03)
[2016-06-16 09:10] LABS: BASO % 0.5 % (0.0-2.0); EOS # 0.4 K/uL (0.0-0.7); EOS % 4.2 % (0.0-4.0); HEMOGLOBIN 12.2 g/dL (12.0-18.0); LYMPH # 1.8 K/uL (1.0-4.3); MEAN CELL VOLUME 92.7 fL (80.0-94.0); MEAN CORPUSCULAR HGB CONC 32.4 g/dL (33.0-37.0); MEAN PLATELET VOLUME 8.3 fL (7.2-11.7); MONO # 0.9 K/uL (0.0-0.8); NEUT # 6.2 K/uL (1.8-7.0); NEUT % 66.3 % (50.0-75.0); RBC 4.06 Mil/uL (4.40-5.90); RED CELL DISTRIBUTION WIDTH 14.3 % (11.5-14.5); WHITE BLOOD COUNT 9.4 K/uL (4.8-10.8)
[2016-06-16 09:26] LABS: ALBUMIN 3.3 g/dL (3.5-5.0)
[2016-06-16 09:29] LABS: ALB/GLOB RATIO 0.8 (1.0-2.1); AST/SGOT 30 U/L (17-59); GFR NON-AFRICAN AMERICAN > 60
[2016-06-16 09:30] LABS: ALT/SGPT 45 U/L (21-72); BLOOD UREA NITROGEN 23 mg/dL (9-20); CALCIUM 8.9 mg/dl (8.6-10.4)
--- NOTE | 2016-06-16 10:41 | CP.PCM.PN ---
Subjective - Date & Time of Evaluation Date of Evaluation: 06/16/16 Time of Evaluation: 07:00 - Subjective Subjective: Patient seen and examined at bedside this morning. No acute changes at this time - ROS unattainable due to aphasia and anoxic encephalopathy. No acute changes overnight - trach and PEG c are clean, dry, and intact. Patient has a baker in place. Patient appears comfortable and resting peacefully. Objective - Vital Signs/Intake and Output Vital Signs (last 24 hours): Temp Pulse Resp BP Pulse Ox 98.3 F 98 H 20 117/81 100 06/16/16 08:00 06/16/16 08:00 06/16/16 08:00 06/16/16 08:00 06/16/16 08:00 Intake and Output: 06/16/16 06/16/16 06:59 18:59 Intake Total 1250 Output Total 1200 Balance 50 - Medications Medications: Current Medications Aspirin (Aspirin Chewable) 81 mg PEG DAILY [facility] Last Admin: 06/15/16 10:03 Dose: 81 mg Clopidogrel Bisulfate (Plavix) 75 mg PEG DAILY [facility] Last Admin: 06/15/16 10:03 Dose: 75 mg Enoxaparin Sodium (Lovenox) 40 mg SC DAILY [facility] Last Admin: 06/15/16 10:03 Dose: 40 mg Famotidine (Pepcid) 20 mg PEG DAILY [facility] Last Admin: 06/15/16 10:02 Dose: 20 mg Mupirocin (Bactroban Ointment) 0 gm TOP DAILY [facility] Last Admin: 06/15/16 10:03 Dose: 1 applic Oxybutynin Chloride (Ditropan Tab) 5 mg PEG TID [facility] Last Admin: 06/15/16 18:17 Dose: 5 mg Phenytoin (Dilantin) 100 mg PEG TID [facility] Last Admin: 06/15/16 18:15 Dose: 100 mg - Labs Labs: 06/16/16 08:58 06/16/16 08:58 PT 10.6 SECONDS (9.7-12.2) 11/24/15 14:10 INR 1.0 11/24/15 14:10 APTT 25 SECONDS (21-34) 11/24/15 14:10 - Constitutional Appears: Non-toxic, No Acute Distress - Head Exam Head Exam: ATRAUMATIC, NORMAL INSPECTION - Eye Exam Eye Exam: EOMI, Normal appearance, PERRL Pupil Exam: NORMAL ACCOMODATION, PERRL - ENT Exam ENT Exam: Mucous Membranes Moist, Normal Exam - Neck Exam Neck Exam: Normal Inspection - Respiratory Exam Respiratory Exam: Clear to Ausculation Bilateral, NORMAL BREATHING PATTERN - Cardiovascular Exam Cardiovascular Exam: REGULAR RHYTHM, +S1, +S2 - GI/Abdominal Exam GI & Abdominal Exam: Soft, Normal Bowel Sounds - Extremities Exam Extremities Exam: Normal Capillary Refill Additional comments: pt in heel protective boots - Back Exam Back Exam: NORMAL INSPECTION. absent: paraspinal tenderness, tenderness - Neurological Exam Neurological Exam: Awake - Psychiatric Exam Psychiatric exam: Normal Affect, Normal Mood - Skin Skin Exam: Dry, Normal Color, Warm Assessment and Plan - Assessment and Plan (Free Text) Plan: 1) Anoxic encephalopathy Assessment & Plan: 06/16: no acute changes: continue with q2h turning, therapy, feeds through PEG site and suctioning trach routinely continue to monitor weekly labs Pending placement Status: Acute (2) Respiratory failure Assessment & Plan: 06/16: Continue trach care and suctioning as needed. Monitor Status: Acute (3) UTI (lower urinary tract infection) Assessment & Plan: Resolved Baker catheter in place Continue Ditropan 5mg via PEG TID Monitor Status: Acute (4) CAD (coronary artery disease) Assessment & Plan: s/p cardiac stents on 06/13/15 Continue ASA 81mg via PEG daily Continue Plavix 75mg via PEG daily Status: Acute (5) Seizures Assessment & Plan: Continue Dilantin 100mg via PEG TID Continue seizure precautions Monitor Status: Acute (6) Bed sore Assessment & Plan: Resolved Continue wound care Prevalon boots in place to avoid heel ulcer development Continue to turn patient q2hrs Monitor with skin checks Status: Acute (7) Prophylactic measure Assessment & Plan: Lovenox 40mg SC daily Pepcid 20mg via PEG BID
[2016-06-16] MEDS: Phenytoin 100 mg/4 ml Oral Susp UD PEG SCH ×3 (11:11→18:41)
[2016-06-16] MEDS: Enoxaparin 40 mg Syringe SC SCH (11:12)
[2016-06-17] MEDS: Enoxaparin 40 mg Syringe SC SCH (11:00)
[2016-06-17] MEDS: Phenytoin 100 mg/4 ml Oral Susp UD PEG SCH ×3 (11:00→17:33)
--- NOTE | 2016-06-17 11:31 | CP.PCM.PN ---
Subjective - Date & Time of Evaluation Date of Evaluation: 06/17/16 Time of Evaluation: 07:00 - Subjective Subjective: Patient seen and examined at bedside this morning. Patient appears comfortable and resting peacefully. No acute changes at this time - ROS unattainable due to aphasia and anoxic encephalopathy. No acute changes overnight - trach and PEG c are clean, dry, and intact. Patient has a baker in place. Objective - Vital Signs/Intake and Output Vital Signs (last 24 hours): Temp Pulse Resp BP Pulse Ox 98.9 F 78 20 133/82 100 06/17/16 08:00 06/17/16 08:00 06/17/16 08:00 06/17/16 08:00 06/17/16 08:00 Intake and Output: 06/17/16 06/17/16 06:59 18:59 Intake Total 1150 Output Total 2050 Balance -900 - Medications Medications: Current Medications Aspirin (Aspirin Chewable) 81 mg PEG DAILY [facility] Last Admin: 06/17/16 11:00 Dose: 81 mg Clopidogrel Bisulfate (Plavix) 75 mg PEG DAILY [facility] Last Admin: 06/17/16 11:00 Dose: 75 mg Enoxaparin Sodium (Lovenox) 40 mg SC DAILY [facility] Last Admin: 06/17/16 11:00 Dose: 40 mg Famotidine (Pepcid) 20 mg PEG DAILY [facility] Last Admin: 06/17/16 11:00 Dose: 20 mg Mupirocin (Bactroban Ointment) 0 gm TOP DAILY [facility] Last Admin: 06/17/16 11:01 Dose: 1 applic Oxybutynin Chloride (Ditropan Tab) 5 mg PEG TID [facility] Last Admin: 06/17/16 11:01 Dose: 5 mg Phenytoin (Dilantin) 100 mg PEG TID [facility] Last Admin: 06/17/16 11:00 Dose: 100 mg - Labs Labs: 06/16/16 08:58 06/16/16 08:58 PT 10.6 SECONDS (9.7-12.2) 11/24/15 14:10 INR 1.0 11/24/15 14:10 APTT 25 SECONDS (21-34) 11/24/15 14:10 - Constitutional Appears: Non-toxic, No Acute Distress - Head Exam Head Exam: ATRAUMATIC, NORMAL INSPECTION - Eye Exam Eye Exam: EOMI - ENT Exam ENT Exam: Mucous Membranes Moist - Neck Exam Neck Exam: absent: Tenderness - Respiratory Exam Respiratory Exam: Clear to Ausculation Bilateral, NORMAL BREATHING PATTERN - Cardiovascular Exam Cardiovascular Exam: REGULAR RHYTHM, +S1, +S2 - GI/Abdominal Exam GI & Abdominal Exam: Soft, Normal Bowel Sounds - Exam Additional comments: baker in place - Extremities Exam Extremities Exam: absent: Pedal Edema, Tenderness Additional comments: wearing prevalon boots - Neurological Exam Neurological Exam: Awake - Skin Skin Exam: Dry, Intact, Warm Assessment and Plan - Assessment and Plan (Free Text) Assessment: 1) Anoxic encephalopathy Assessment & Plan: 06/17: no acute changes: continue with q2h turning, therapy, feeds through PEG site and suctioning trach routinely continue to monitor weekly labs Pending placement Status: Acute (2) Respiratory failure Assessment & Plan: 06/17: Continue trach care and suctioning as needed. Monitor Status: Acute (3) UTI (lower urinary tract infection) Assessment & Plan: Resolved Baker catheter in place Continue Ditropan 5mg via PEG TID Monitor Status: Acute (4) CAD (coronary artery disease) Assessment & Plan: s/p cardiac stents on 06/13/15 Continue ASA 81mg via PEG daily Continue Plavix 75mg via PEG daily Status: Acute (5) Seizures Assessment & Plan: Continue Dilantin 100mg via PEG TID Continue seizure precautions Monitor Status: Acute (6) Bed sore Assessment & Plan: Resolved Continue wound care Prevalon boots in place to avoid heel ulcer development Continue to turn patient q2hrs Monitor with skin checks Status: Acute (7) Prophylactic measure Assessment & Plan: Lovenox 40mg SC daily Pepcid 20mg via PEG BID
[2016-06-18 08:42] LABS: ALBUMIN 3.3 g/dL (3.5-5.0)
[2016-06-18 08:44] LABS: GFR NON-AFRICAN AMERICAN > 60
[2016-06-18 08:45] LABS: ALB/GLOB RATIO 0.8 (1.0-2.1); ALT/SGPT 47 U/L (21-72); AST/SGOT 26 U/L (17-59); BLOOD UREA NITROGEN 21 mg/dL (9-20); CALCIUM 8.8 mg/dl (8.6-10.4)
--- NOTE | 2016-06-18 09:51 | CP.PCM.PN ---
<Drake Alicea - Last Filed: 06/18/16 13:33> Subjective - Date & Time of Evaluation Date of Evaluation: 06/18/16 Time of Evaluation: 07:00 - Subjective Subjective: Patient seen and examined at bedside this morning. Patient appears comfortable and resting peacefully. No acute changes at this time - ROS unattainable due to aphasia and anoxic encephalopathy. No acute changes overnight - trach and PEG are clean, dry, and intact. Patient has a baker in place. Objective - Vital Signs/Intake and Output Vital Signs (last 24 hours): Temp Pulse Resp BP Pulse Ox 98.6 F 89 20 155/96 H 98 06/18/16 07:50 06/18/16 07:50 06/18/16 07:50 06/18/16 07:50 06/18/16 07:50 Intake and Output: 06/18/16 06/18/16 06:59 18:59 Intake Total 1250 Output Total 1100 Balance 150 - Medications Medications: Current Medications Aspirin (Aspirin Chewable) 81 mg PEG DAILY [facility] Last Admin: 06/17/16 11:00 Dose: 81 mg Clopidogrel Bisulfate (Plavix) 75 mg PEG DAILY [facility] Last Admin: 06/17/16 11:00 Dose: 75 mg Enoxaparin Sodium (Lovenox) 40 mg SC DAILY [facility] Last Admin: 06/17/16 11:00 Dose: 40 mg Famotidine (Pepcid) 20 mg PEG DAILY [facility] Last Admin: 06/17/16 11:00 Dose: 20 mg Mupirocin (Bactroban Ointment) 0 gm TOP DAILY [facility] Last Admin: 06/17/16 11:01 Dose: 1 applic Oxybutynin Chloride (Ditropan Tab) 5 mg PEG TID [facility] Last Admin: 06/17/16 17:33 Dose: 5 mg Phenytoin (Dilantin) 100 mg PEG TID [facility] Last Admin: 06/17/16 17:33 Dose: 100 mg - Labs Labs: 06/16/16 08:58 06/18/16 08:20 PT 10.6 SECONDS (9.7-12.2) 11/24/15 14:10 INR 1.0 11/24/15 14:10 APTT 25 SECONDS (21-34) 11/24/15 14:10 - Constitutional Appears: Non-toxic, No Acute Distress - Head Exam Head Exam: ATRAUMATIC, NORMAL INSPECTION - Eye Exam Eye Exam: Normal appearance, PERRL Pupil Exam: PERRL - ENT Exam ENT Exam: Mucous Membranes Moist, Normal Exam - Respiratory Exam Respiratory Exam: Clear to Ausculation Bilateral, NORMAL BREATHING PATTERN - Cardiovascular Exam Cardiovascular Exam: REGULAR RHYTHM, +S1, +S2 - GI/Abdominal Exam GI & Abdominal Exam: Soft, Normal Bowel Sounds - Extremities Exam Additional comments: prevalon boots in place - Neurological Exam Neurological Exam: Awake - Skin Skin Exam: Dry, Intact, Warm Assessment and Plan - Assessment and Plan (Free Text) Assessment: Assessment: 1) Anoxic encephalopathy Assessment & Plan: 06/18: no acute changes: continue with q2h turning, therapy, feeds through PEG site and suctioning trach routinely continue to monitor weekly labs Pending placement Status: Acute (2) Respiratory failure Assessment & Plan: 06/18: Continue trach care and suctioning as needed. Monitor Status: Acute (3) UTI (lower urinary tract infection) Assessment & Plan: Resolved Baker catheter in place Continue Ditropan 5mg via PEG TID Monitor Status: Acute (4) CAD (coronary artery disease) Assessment & Plan: s/p cardiac stents on 06/13/15 Continue ASA 81mg via PEG daily Continue Plavix 75mg via PEG daily Status: Acute (5) Seizures Assessment & Plan: Continue Dilantin 100mg via PEG TID Continue seizure precautions Monitor Status: Acute (6) Bed sore Assessment & Plan: Resolved Continue wound care Prevalon boots in place to avoid heel ulcer development Continue to turn patient q2hrs Monitor with skin checks Status: Acute (7) Prophylactic measure Assessment & Plan: Lovenox 40mg SC daily Pepcid 20mg via PEG BID <Donavan Hallman - Last Filed: 06/22/16 16:37> Objective - Vital Signs/Intake and Output Vital Signs (last 24 hours): Temp Pulse Resp BP Pulse Ox 98 F 72 18 122/83 99 06/22/16 07:44 06/22/16 07:44 06/22/16 07:44 06/22/16 07:44 06/22/16 07:44 Intake and Output: 06/22/16 06/22/16 06:59 18:59 Intake Total 1550 Output Total 1400 Balance 150 - Medications Medications: Current Medications Aspirin (Aspirin Chewable) 81 mg PEG DAILY [facility] Last Admin: 06/22/16 09:06 Dose: 81 mg Clopidogrel Bisulfate (Plavix) 75 mg PEG DAILY [facility] Last Admin: 06/22/16 09:06 Dose: 75 mg Enoxaparin Sodium (Lovenox) 40 mg SC DAILY [facility] Last Admin: 06/22/16 09:06 Dose: 40 mg Famotidine (Pepcid) 20 mg PEG DAILY [facility] Last Admin: 06/22/16 09:06 Dose: 20 mg Fluconazole (Diflucan) 150 mg PO DAILY [facility] Stop: 06/27/16 11:30 Last Admin: 06/22/16 09:05 Dose: 150 mg Mupirocin (Bactroban Ointment) 0 gm TOP DAILY [facility] Last Admin: 06/22/16 10:00 Dose: 1 applic - Labs Labs: 06/19/16 08:06 06/18/16 08:20 PT 10.6 SECONDS (9.7-12.2) 11/24/15 14:10 INR 1.0 11/24/15 14:10 APTT 25 SECONDS (21-34) 11/24/15 14:10 Attending/Attestation - Attestation I have personally seen and examined this patient.: Yes I have fully participated in the care of the patient.: Yes I have reviewed all pertinent clinical information, including history, physical exam and plan: Yes Notes (Text): Patient seen and examined with resident. Agree with resident's evaluation, assessment and plan.
[2016-06-18] MEDS: Enoxaparin 40 mg Syringe SC SCH (11:05)
[2016-06-18] MEDS: Phenytoin 100 mg/4 ml Oral Susp UD PEG SCH ×3 (11:06→17:18)
[2016-06-19 08:29] LABS: BASO % 0.3 % (0.0-2.0); EOS # 0.5 K/uL (0.0-0.7); EOS % 4.6 % (0.0-4.0); HEMOGLOBIN 12.6 g/dL (12.0-18.0); LYMPH # 2.3 K/uL (1.0-4.3); LYMPH % 21.5 % (20.0-40.0); MEAN CORPUSCULAR HGB CONC 33.1 g/dL (33.0-37.0); MEAN PLATELET VOLUME 8.2 fL (7.2-11.7); MONO % 9.7 % (0.0-10.0); NEUT # 6.7 K/uL (1.8-7.0); NEUT % 63.9 % (50.0-75.0); RBC 4.19 Mil/uL (4.40-5.90); RED CELL DISTRIBUTION WIDTH 13.8 % (11.5-14.5); WHITE BLOOD COUNT 10.4 K/uL (4.8-10.8)
[2016-06-19 08:38] LABS: MEAN CELL VOLUME 90.5 fL (80.0-94.0)
[2016-06-19] MEDS: Phenytoin 100 mg/4 ml Oral Susp UD PEG SCH ×3 (10:40→18:32)
[2016-06-19] MEDS: Enoxaparin 40 mg Syringe SC SCH (10:40)
--- NOTE | 2016-06-19 15:15 | CP.PCM.PN ---
<Drake Alicea - Last Filed: 06/19/16 15:12> Subjective - Date & Time of Evaluation Date of Evaluation: 06/19/16 Time of Evaluation: 07:00 - Subjective Subjective: Patient seen and examined at bedside this morning. Patient appears comfortable and resting peacefully. No acute changes at this time - ROS unattainable due to aphasia and anoxic encephalopathy. No acute changes overnight - trach and PEG are clean, dry, and intact. Patient has a baker in place. Objective - Vital Signs/Intake and Output Vital Signs (last 24 hours): Temp Pulse Resp BP Pulse Ox 98.6 F 85 20 128/81 98 06/19/16 08:08 06/19/16 08:08 06/19/16 08:08 06/19/16 08:08 06/19/16 08:08 Intake and Output: 06/19/16 06/19/16 06:59 18:59 Intake Total 800 700 Output Total 1825 500 Balance -1025 200 - Medications Medications: Current Medications Aspirin (Aspirin Chewable) 81 mg PEG DAILY [facility] Last Admin: 06/19/16 10:00 Dose: 81 mg Clopidogrel Bisulfate (Plavix) 75 mg PEG DAILY [facility] Last Admin: 06/19/16 10:40 Dose: 75 mg Enoxaparin Sodium (Lovenox) 40 mg SC DAILY [facility] Last Admin: 06/19/16 10:40 Dose: 40 mg Famotidine (Pepcid) 20 mg PEG DAILY [facility] Last Admin: 06/19/16 10:40 Dose: 20 mg Mupirocin (Bactroban Ointment) 0 gm TOP DAILY [facility] Last Admin: 06/19/16 10:00 Dose: 1 applic Oxybutynin Chloride (Ditropan Tab) 5 mg PEG TID [facility] Last Admin: 06/19/16 14:48 Dose: 5 mg Phenytoin (Dilantin) 100 mg PEG TID [facility] Last Admin: 06/19/16 14:48 Dose: 100 mg - Labs Labs: 06/19/16 08:06 06/18/16 08:20 PT 10.6 SECONDS (9.7-12.2) 11/24/15 14:10 INR 1.0 11/24/15 14:10 APTT 25 SECONDS (21-34) 11/24/15 14:10 - Constitutional Appears: Non-toxic, No Acute Distress - Head Exam Head Exam: ATRAUMATIC, NORMAL INSPECTION - Eye Exam Eye Exam: Normal appearance - ENT Exam ENT Exam: Mucous Membranes Moist Additional comments: white film on tongue that scrapes off - Neck Exam Neck Exam: Normal Inspection - Respiratory Exam Respiratory Exam: Clear to Ausculation Bilateral, NORMAL BREATHING PATTERN - Cardiovascular Exam Cardiovascular Exam: REGULAR RHYTHM, +S1, +S2 - GI/Abdominal Exam GI & Abdominal Exam: Soft, Normal Bowel Sounds Additional comments: PEG tube in place - Exam Additional comments: baker in place - Extremities Exam Extremities Exam: absent: Pedal Edema Additional comments: feet in prevalon boots for ulcer prevention - Neurological Exam Neurological Exam: Awake - Skin Skin Exam: Dry, Intact Assessment and Plan - Assessment and Plan (Free Text) Assessment: 1) Anoxic encephalopathy Assessment & Plan: 06/19: no acute changes: continue with q2h turning, therapy, feeds through PEG site and suctioning trach routinely continue to monitor weekly labs Pending placement Status: Acute (2) Respiratory failure Assessment & Plan: 06/19: Continue trach care and suctioning as needed. Monitor Status: Acute (3) UTI (lower urinary tract infection) Assessment & Plan: Resolved Baker catheter in place Continue Ditropan 5mg via PEG TID Monitor Status: Acute (4) CAD (coronary artery disease) Assessment & Plan: s/p cardiac stents on 06/13/15 Continue ASA 81mg via PEG daily Continue Plavix 75mg via PEG daily Status: Acute (5) Seizures Assessment & Plan: Continue Dilantin 100mg via PEG TID Continue seizure precautions Monitor Status: Acute (6) Bed sore Assessment & Plan: Resolved Continue wound care Prevalon boots in place to avoid heel ulcer development Continue to turn patient q2hrs Monitor with skin checks Status: Acute (7) Prophylactic measure Assessment & Plan: Lovenox 40mg SC daily Pepcid 20mg via PEG BID <Donavan Hallman - Last Filed: 06/22/16 17:26> Objective - Vital Signs/Intake and Output Vital Signs (last 24 hours): Temp Pulse Resp BP Pulse Ox 98 F 72 18 122/83 99 06/22/16 07:44 06/22/16 07:44 06/22/16 07:44 06/22/16 07:44 06/22/16 07:44 Intake and Output: 06/22/16 06/22/16 06:59 18:59 Intake Total 1550 Output Total 1400 Balance 150 - Medications Medications: Current Medications Aspirin (Aspirin Chewable) 81 mg PEG DAILY [facility] Last Admin: 06/22/16 09:06 Dose: 81 mg Clopidogrel Bisulfate (Plavix) 75 mg PEG DAILY [facility] Last Admin: 06/22/16 09:06 Dose: 75 mg Enoxaparin Sodium (Lovenox) 40 mg SC DAILY [facility] Last Admin: 06/22/16 09:06 Dose: 40 mg Famotidine (Pepcid) 20 mg PEG DAILY [facility] Last Admin: 06/22/16 09:06 Dose: 20 mg Fluconazole (Diflucan) 150 mg PO DAILY [facility] Stop: 06/27/16 11:30 Last Admin: 06/22/16 09:05 Dose: 150 mg Mupirocin (Bactroban Ointment) 0 gm TOP DAILY [facility] Last Admin: 06/22/16 10:00 Dose: 1 applic - Labs Labs: 06/19/16 08:06 06/18/16 08:20 PT 10.6 SECONDS (9.7-12.2) 11/24/15 14:10 INR 1.0 11/24/15 14:10 APTT 25 SECONDS (21-34) 11/24/15 14:10 Attending/Attestation - Attestation I have personally seen and examined this patient.: Yes I have fully participated in the care of the patient.: Yes I have reviewed all pertinent clinical information, including history, physical exam and plan: Yes Notes (Text): Patient seen and examined with resident. Agree with resident's evaluation, assessment and plan.
--- NOTE | 2016-06-20 07:38 | CP.PCM.PN ---
<AlysiashelleyMarcus vigil - Last Filed: 06/20/16 13:45> Subjective - Date & Time of Evaluation Date of Evaluation: 06/20/16 Time of Evaluation: 07:38 - Subjective Subjective: Patient seen and examined at bedside this morning. Patient appears comfortable and resting peacefully. No acute changes at this time - ROS unattainable due to aphasia and anoxic encephalopathy. No acute changes overnight - trach and PEG are clean, dry, and intact. Patient has a baker in place. Objective - Vital Signs/Intake and Output Vital Signs (last 24 hours): Temp Pulse Resp BP Pulse Ox 98.4 F 88 20 120/78 98 06/19/16 23:21 06/19/16 23:30 06/19/16 23:21 06/19/16 23:21 06/19/16 23:21 Intake and Output: 06/20/16 06/20/16 06:59 18:59 Intake Total 1500 Output Total 1000 Balance 500 - Medications Medications: Current Medications Aspirin (Aspirin Chewable) 81 mg PEG DAILY [facility] Last Admin: 06/19/16 10:00 Dose: 81 mg Clopidogrel Bisulfate (Plavix) 75 mg PEG DAILY [facility] Last Admin: 06/19/16 10:40 Dose: 75 mg Enoxaparin Sodium (Lovenox) 40 mg SC DAILY [facility] Last Admin: 06/19/16 10:40 Dose: 40 mg Famotidine (Pepcid) 20 mg PEG DAILY [facility] Last Admin: 06/19/16 10:40 Dose: 20 mg Mupirocin (Bactroban Ointment) 0 gm TOP DAILY [facility] Last Admin: 06/19/16 10:00 Dose: 1 applic Oxybutynin Chloride (Ditropan Tab) 5 mg PEG TID [facility] Last Admin: 06/19/16 18:32 Dose: 5 mg Phenytoin (Dilantin) 100 mg PEG TID [facility] Last Admin: 06/19/16 18:32 Dose: 100 mg - Labs Labs: 06/19/16 08:06 06/18/16 08:20 PT 10.6 SECONDS (9.7-12.2) 11/24/15 14:10 INR 1.0 11/24/15 14:10 APTT 25 SECONDS (21-34) 11/24/15 14:10 - Constitutional Appears: Non-toxic, No Acute Distress - Head Exam Head Exam: ATRAUMATIC, NORMOCEPHALIC - Eye Exam Eye Exam: Normal appearance - ENT Exam ENT Exam: Mucous Membranes Moist Additional comments: white film on tongue that scrapes off - Neck Exam Neck Exam: Normal Inspection - Respiratory Exam Respiratory Exam: Clear to Ausculation Bilateral, NORMAL BREATHING PATTERN - Cardiovascular Exam Cardiovascular Exam: REGULAR RHYTHM, +S1, +S2 - GI/Abdominal Exam GI & Abdominal Exam: Soft, Normal Bowel Sounds. absent: Tenderness Additional comments: PEG tube in place - Exam Additional comments: baker in place - Extremities Exam Extremities Exam: absent: Pedal Edema Additional comments: feet in prevalon boots for ulcer prevention - Neurological Exam Neurological Exam: Awake - Skin Skin Exam: Dry, Intact Assessment and Plan - Assessment and Plan (Free Text) Plan: 1) Anoxic encephalopathy Assessment & Plan: 06/20: no acute changes: continue with q2h turning, therapy, feeds through PEG site and suctioning trach routinely continue to monitor weekly labs Pending placement (2) Respiratory failure Assessment & Plan: 06/20: Continue trach care and suctioning as needed. Monitor (3) UTI (lower urinary tract infection) Assessment & Plan: Resolved Baker catheter in place Continue Ditropan 5mg via PEG TID Monitor (4) CAD (coronary artery disease) Assessment & Plan: s/p cardiac stents on 06/13/15 Continue ASA 81mg via PEG daily Continue Plavix 75mg via PEG daily (5) Seizures Assessment & Plan: Continue Dilantin 100mg via PEG TID Continue seizure precautions Monitor (6) Bed sore Assessment & Plan: Resolved Continue wound care Prevalon boots in place to avoid heel ulcer development Continue to turn patient q2hrs Monitor with skin checks (7) Prophylactic measure Assessment & Plan: Lovenox 40mg SC daily Pepcid 20mg via PEG BID (8) Oral Thrush Assessment & Plan: Diflucan 150 mg PO (Gtube) daily x 7 days <Donavan Hallman - Last Filed: 06/22/16 17:39> Objective - Vital Signs/Intake and Output Vital Signs (last 24 hours): Temp Pulse Resp BP Pulse Ox 98.7 F 81 20 126/88 98 06/22/16 16:00 06/22/16 16:00 06/22/16 16:00 06/22/16 16:00 06/22/16 16:00 Intake and Output: 07/31/16 07/31/16 06:59 18:59 Intake Total 1550 Output Total 1400 Balance 150 - Medications Medications: Current Medications Aspirin (Aspirin Chewable) 81 mg PEG DAILY [facility] Last Admin: 06/22/16 09:06 Dose: 81 mg Clopidogrel Bisulfate (Plavix) 75 mg PEG DAILY [facility] Last Admin: 06/22/16 09:06 Dose: 75 mg Enoxaparin Sodium (Lovenox) 40 mg SC DAILY [facility] Last Admin: 06/22/16 09:06 Dose: 40 mg Famotidine (Pepcid) 20 mg PEG DAILY [facility] Last Admin: 06/22/16 09:06 Dose: 20 mg Fluconazole (Diflucan) 150 mg PO DAILY [facility] Stop: 06/27/16 11:30 Last Admin: 06/22/16 09:05 Dose: 150 mg Mupirocin (Bactroban Ointment) 0 gm TOP DAILY [facility] Last Admin: 06/22/16 10:00 Dose: 1 applic - Labs Labs: 06/19/16 08:06 06/18/16 08:20 PT 10.6 SECONDS (9.7-12.2) 11/24/15 14:10 INR 1.0 11/24/15 14:10 APTT 25 SECONDS (21-34) 11/24/15 14:10 Attending/Attestation - Attestation I have personally seen and examined this patient.: Yes I have fully participated in the care of the patient.: Yes I have reviewed all pertinent clinical information, including history, physical exam and plan: Yes Notes (Text): Patient seen and examined with resident. Agree with the resident's evaluation, assessment and plan.
[2016-06-20] MEDS: Phenytoin 100 mg/4 ml Oral Susp UD PEG SCH ×3 (11:02→17:14)
[2016-06-20] MEDS: Enoxaparin 40 mg Syringe SC SCH (11:02)
[2016-06-21] MEDS: Enoxaparin 40 mg Syringe SC SCH (09:11)
[2016-06-21] MEDS: Phenytoin 100 mg/4 ml Oral Susp UD PEG SCH ×3 (09:12→17:34)
--- NOTE | 2016-06-21 23:31 | CP.PCM.PN ---
<Bolivar Miller - Last Filed: 06/23/16 02:43> Subjective - Date & Time of Evaluation Date of Evaluation: 06/21/16 Time of Evaluation: 03:15 - Subjective Subjective: Pt seen and examined. Pt noncommunicating secondary to anoxec encephalopathy. ROS unattainable. Objective - Vital Signs/Intake and Output Vital Signs (last 24 hours): Temp Pulse Resp BP Pulse Ox 98.6 F 83 20 130/90 100 06/21/16 16:00 06/21/16 16:00 06/21/16 16:00 06/21/16 16:00 06/21/16 16:00 Intake and Output: 06/21/16 06/22/16 18:59 06:59 Intake Total 850 Output Total 300 1000 Balance -300 -150 - Medications Medications: Current Medications Aspirin (Aspirin Chewable) 81 mg PEG DAILY [facility] Last Admin: 06/21/16 09:12 Dose: 81 mg Clopidogrel Bisulfate (Plavix) 75 mg PEG DAILY [facility] Last Admin: 06/21/16 09:12 Dose: 75 mg Enoxaparin Sodium (Lovenox) 40 mg SC DAILY [facility] Last Admin: 06/21/16 09:11 Dose: 40 mg Famotidine (Pepcid) 20 mg PEG DAILY [facility] Last Admin: 06/21/16 09:12 Dose: 20 mg Fluconazole (Diflucan) 150 mg PO DAILY [facility] Stop: 06/27/16 11:30 Last Admin: 06/21/16 09:12 Dose: 150 mg Mupirocin (Bactroban Ointment) 0 gm TOP DAILY [facility] Last Admin: 06/21/16 09:52 Dose: 1 applic Oxybutynin Chloride (Ditropan Tab) 5 mg PEG TID [facility] Last Admin: 06/21/16 17:34 Dose: 5 mg Phenytoin (Dilantin) 100 mg PEG TID [facility] Last Admin: 06/21/16 17:34 Dose: 100 mg - Labs Labs: 06/19/16 08:06 06/18/16 08:20 PT 10.6 SECONDS (9.7-12.2) 11/24/15 14:10 INR 1.0 11/24/15 14:10 APTT 25 SECONDS (21-34) 11/24/15 14:10 - Constitutional Appears: No Acute Distress - Head Exam Head Exam: ATRAUMATIC, NORMOCEPHALIC - Eye Exam Eye Exam: EOMI, PERRL Pupil Exam: PERRL - ENT Exam ENT Exam: Mucous Membranes Moist - Neck Exam Neck Exam: Full ROM. absent: Lymphadenopathy - Respiratory Exam Respiratory Exam: Rhonchi - Cardiovascular Exam Cardiovascular Exam: +S1, +S2 - GI/Abdominal Exam GI & Abdominal Exam: Soft, Hypoactive Bowel Sounds - Extremities Exam Extremities Exam: Full ROM. absent: Pedal Edema - Neurological Exam Neurological Exam: absent: Awake, Oriented x3 - Skin Skin Exam: Warm Assessment and Plan - Assessment and Plan (Free Text) Assessment: 1) Anoxic encephalopathy Assessment & Plan: 06/21: no acute changes: continue with q2h turning, therapy, feeds through PEG site and suctioning trach routinely continue to monitor weekly labs Pending placement (2) Respiratory failure Assessment & Plan: 06/21: Continue trach care and suctioning as needed. Monitor (3) UTI (lower urinary tract infection) Assessment & Plan: Resolved Yoo catheter in place Continue Ditropan 5mg via PEG TID Monitor (4) CAD (coronary artery disease) Assessment & Plan: s/p cardiac stents on 06/13/15 Continue ASA 81mg via PEG daily Continue Plavix 75mg via PEG daily (5) Seizures Assessment & Plan: Continue Dilantin 100mg via PEG TID Continue seizure precautions Monitor (6) Bed sore Assessment & Plan: Resolved Continue wound care Prevalon boots in place to avoid heel ulcer development Continue to turn patient q2hrs Monitor with skin checks (7) Prophylactic measure Assessment & Plan: Lovenox 40mg SC daily Pepcid 20mg via PEG BID (8) Oral Thrush Assessment & Plan: Diflucan 150 mg PO (Gtube) daily x 7 days <Donavan Hallman - Last Filed: 07/01/16 13:45> Objective - Vital Signs/Intake and Output Vital Signs (last 24 hours): Temp Pulse Resp BP Pulse Ox 98.1 F 81 20 135/86 96 07/01/16 08:00 07/01/16 08:00 07/01/16 08:00 07/01/16 08:00 07/01/16 08:00 Intake and Output: 07/01/16 07/01/16 06:59 18:59 Intake Total 1150 550 Output Total 1500 Balance -350 550 - Medications Medications: Current Medications Aspirin (Aspirin Chewable) 81 mg PEG DAILY [facility] Last Admin: 07/01/16 09:05 Dose: 81 mg Clopidogrel Bisulfate (Plavix) 75 mg PEG DAILY [facility] Last Admin: 07/01/16 09:05 Dose: 75 mg Enoxaparin Sodium (Lovenox) 40 mg SC DAILY [facility] Last Admin: 07/01/16 09:06 Dose: 40 mg Famotidine (Pepcid) 20 mg PEG DAILY [facility] Last Admin: 07/01/16 09:05 Dose: 20 mg Fluconazole (Diflucan) 150 mg PO DAILY [facility] Last Admin: 07/01/16 09:07 Dose: 150 mg Lactulose (Enulose) 20 gm PO QID [facility] Last Admin: 07/01/16 13:18 Dose: 20 gm Mupirocin (Bactroban Ointment) 0 gm TOP DAILY [facility] Last Admin: 07/01/16 09:08 Dose: 1 applic Oxybutynin Chloride (Ditropan Tab) 5 mg PEG TID [facility] Last Admin: 07/01/16 13:17 Dose: 5 mg Phenytoin (Dilantin) 100 mg PEG TID [facility] Last Admin: 07/01/16 13:15 Dose: 100 mg Polyethylene Glycol (Miralax) 17 gm PEG HS [facility] Last Admin: 06/30/16 21:46 Dose: 17 gm Sennosides (Senokot Tab) 8.6 mg PO Q72 [facility] - Labs Labs: 06/30/16 07:47 06/30/16 07:47 PT 10.6 SECONDS (9.7-12.2) 11/24/15 14:10 INR 1.0 11/24/15 14:10 APTT 25 SECONDS (21-34) 11/24/15 14:10 Attending/Attestation - Attestation I have personally seen and examined this patient.: Yes I have fully participated in the care of the patient.: Yes I have reviewed all pertinent clinical information, including history, physical exam and plan: Yes Notes (Text): Patient seen and examined with the resident's note. Agree with resident's evaluation, assessment and plan.
[2016-06-22] MEDS: Phenytoin 100 mg/4 ml Oral Susp UD PEG SCH ×2 (09:05→17:56)
[2016-06-22] MEDS: Enoxaparin 40 mg Syringe SC SCH (09:06)
--- NOTE | 2016-06-22 23:47 | CP.PCM.PN ---
<Bolivar Miller - Last Filed: 06/23/16 02:44> Subjective - Date & Time of Evaluation Date of Evaluation: 06/22/16 Time of Evaluation: 03:05 - Subjective Subjective: Pt seen and examined. Pt's is bedbound and noncommunicable secondary to anoxic encephalopathy. ROS unattainable. Objective - Vital Signs/Intake and Output Vital Signs (last 24 hours): Temp Pulse Resp BP Pulse Ox 98.7 F 81 20 126/88 98 06/22/16 16:00 06/22/16 16:00 06/22/16 16:00 06/22/16 16:00 06/22/16 16:00 Intake and Output: 06/22/16 06/23/16 18:59 06:59 Intake Total 800 Output Total 600 Balance 200 - Medications Medications: Current Medications Aspirin (Aspirin Chewable) 81 mg PEG DAILY [facility] Last Admin: 06/22/16 09:06 Dose: 81 mg Clopidogrel Bisulfate (Plavix) 75 mg PEG DAILY [facility] Last Admin: 06/22/16 09:06 Dose: 75 mg Enoxaparin Sodium (Lovenox) 40 mg SC DAILY [facility] Last Admin: 06/22/16 09:06 Dose: 40 mg Famotidine (Pepcid) 20 mg PEG DAILY [facility] Last Admin: 06/22/16 09:06 Dose: 20 mg Fluconazole (Diflucan) 150 mg PO DAILY [facility] Stop: 06/27/16 11:30 Last Admin: 06/22/16 09:05 Dose: 150 mg Mupirocin (Bactroban Ointment) 0 gm TOP DAILY [facility] Last Admin: 06/22/16 10:00 Dose: 1 applic Oxybutynin Chloride (Ditropan Tab) 5 mg PEG TID [facility] Last Admin: 06/22/16 17:57 Dose: 5 mg Phenytoin (Dilantin) 100 mg PEG TID [facility] Last Admin: 06/22/16 17:56 Dose: 100 mg - Labs Labs: 06/19/16 08:06 06/18/16 08:20 PT 10.6 SECONDS (9.7-12.2) 11/24/15 14:10 INR 1.0 11/24/15 14:10 APTT 25 SECONDS (21-34) 11/24/15 14:10 - Constitutional Appears: Chronically Ill - Head Exam Head Exam: ATRAUMATIC, NORMOCEPHALIC - Eye Exam Eye Exam: absent: EOMI, PERRL - ENT Exam ENT Exam: Mucous Membranes Moist - Neck Exam Neck Exam: absent: Full ROM - Respiratory Exam Respiratory Exam: Rhonchi - Cardiovascular Exam Cardiovascular Exam: +S1 - GI/Abdominal Exam GI & Abdominal Exam: Soft, Hypoactive Bowel Sounds - Extremities Exam Extremities Exam: absent: Full ROM, Pedal Edema - Neurological Exam Neurological Exam: absent: Alert, Awake, CN II-XII Intact, Oriented x3 - Skin Skin Exam: Warm Assessment and Plan - Assessment and Plan (Free Text) Assessment: 1) Anoxic encephalopathy Assessment & Plan: 06/22: no acute changes: continue with q2h turning, therapy, feeds through PEG site and suctioning trach routinely continue to monitor weekly labs Pending placement (2) Respiratory failure Assessment & Plan: 06/22: Continue trach care and suctioning as needed. Monitor (3) UTI (lower urinary tract infection) Assessment & Plan: Resolved Yoo catheter in place Continue Ditropan 5mg via PEG TID Monitor (4) CAD (coronary artery disease) Assessment & Plan: s/p cardiac stents on 06/13/15 Continue ASA 81mg via PEG daily Continue Plavix 75mg via PEG daily (5) Seizures Assessment & Plan: Continue Dilantin 100mg via PEG TID Continue seizure precautions Monitor (6) Bed sore Assessment & Plan: Resolved Continue wound care Prevalon boots in place to avoid heel ulcer development Continue to turn patient q2hrs Monitor with skin checks (7) Prophylactic measure Assessment & Plan: Lovenox 40mg SC daily Pepcid 20mg via PEG BID (8) Oral Thrush Assessment & Plan: Diflucan 150 mg PO (Gtube) daily x 7 days <Donavan Hallman - Last Filed: 07/01/16 13:49> Objective - Vital Signs/Intake and Output Vital Signs (last 24 hours): Temp Pulse Resp BP Pulse Ox 98.1 F 81 20 135/86 96 07/01/16 08:00 07/01/16 08:00 07/01/16 08:00 07/01/16 08:00 07/01/16 08:00 Intake and Output: 07/01/16 07/01/16 06:59 18:59 Intake Total 1150 550 Output Total 1500 Balance -350 550 - Medications Medications: Current Medications Aspirin (Aspirin Chewable) 81 mg PEG DAILY [facility] Last Admin: 07/01/16 09:05 Dose: 81 mg Clopidogrel Bisulfate (Plavix) 75 mg PEG DAILY [facility] Last Admin: 07/01/16 09:05 Dose: 75 mg Enoxaparin Sodium (Lovenox) 40 mg SC DAILY [facility] Last Admin: 07/01/16 09:06 Dose: 40 mg Famotidine (Pepcid) 20 mg PEG DAILY [facility] Last Admin: 07/01/16 09:05 Dose: 20 mg Fluconazole (Diflucan) 150 mg PO DAILY [facility] Last Admin: 07/01/16 09:07 Dose: 150 mg Lactulose (Enulose) 20 gm PO QID [facility] Last Admin: 07/01/16 13:18 Dose: 20 gm Mupirocin (Bactroban Ointment) 0 gm TOP DAILY [facility] Last Admin: 07/01/16 09:08 Dose: 1 applic Oxybutynin Chloride (Ditropan Tab) 5 mg PEG TID [facility] Last Admin: 07/01/16 13:17 Dose: 5 mg Phenytoin (Dilantin) 100 mg PEG TID [facility] Last Admin: 07/01/16 13:15 Dose: 100 mg Polyethylene Glycol (Miralax) 17 gm PEG HS [facility] Last Admin: 06/30/16 21:46 Dose: 17 gm Sennosides (Senokot Tab) 8.6 mg PO Q72 [facility] - Labs Labs: 06/30/16 07:47 06/30/16 07:47 PT 10.6 SECONDS (9.7-12.2) 11/24/15 14:10 INR 1.0 11/24/15 14:10 APTT 25 SECONDS (21-34) 11/24/15 14:10 Attending/Attestation - Attestation I have personally seen and examined this patient.: Yes I have fully participated in the care of the patient.: Yes I have reviewed all pertinent clinical information, including history, physical exam and plan: Yes Notes (Text): Patient seen and examined with the resident's note. Agree with resident's evaluation, assessment and plan.
[2016-06-23 09:26] LABS: BASO % 0.5 % (0.0-2.0); EOS # 0.4 K/uL (0.0-0.7); LYMPH % 24.3 % (20.0-40.0); MEAN CELL VOLUME 91.6 fL (80.0-94.0); MEAN CORPUSCULAR HEMOGLOBIN 30.4 pg (27.0-31.0); MEAN CORPUSCULAR HGB CONC 33.2 g/dL (33.0-37.0); MEAN PLATELET VOLUME 8.5 fL (7.2-11.7); MONO # 0.8 K/uL (0.0-0.8); MONO % 9.6 % (0.0-10.0); NEUT % 60.6 % (50.0-75.0); RBC 4.27 Mil/uL (4.40-5.90); WHITE BLOOD COUNT 8.2 K/uL (4.8-10.8)
[2016-06-23 09:37] LABS: ALBUMIN 3.6 g/dL (3.5-5.0)
[2016-06-23 09:40] LABS: ALB/GLOB RATIO 0.8 (1.0-2.1); ALT/SGPT 47 U/L (21-72); AST/SGOT 36 U/L (17-59); BLOOD UREA NITROGEN 18 mg/dL (9-20); CALCIUM 9.1 mg/dl (8.6-10.4); GFR NON-AFRICAN AMERICAN > 60
--- NOTE | 2016-06-23 09:57 | CP.PCM.PN ---
<Judith Baires - Last Filed: 06/23/16 09:54> Subjective - Date & Time of Evaluation Date of Evaluation: 06/23/16 Time of Evaluation: 08:45 - Subjective Subjective: PGY2 Resident Medicine Note - Dr. Hallman's service: Patient seen and evaluated at bedside this AM. Patient nonverbal and noncommunicable. Dressings around tracheostomy and peg tube intact and dry. No acute events overnight. Objective - Vital Signs/Intake and Output Vital Signs (last 24 hours): Temp Pulse Resp BP Pulse Ox 98 F 84 20 117/80 99 06/23/16 08:45 06/23/16 08:45 06/23/16 08:45 06/23/16 08:45 06/23/16 08:45 Intake and Output: 06/23/16 06/23/16 06:59 18:59 Intake Total 1500 Output Total 1100 Balance 400 - Medications Medications: Current Medications Aspirin (Aspirin Chewable) 81 mg PEG DAILY [facility] Last Admin: 06/22/16 09:06 Dose: 81 mg Clopidogrel Bisulfate (Plavix) 75 mg PEG DAILY [facility] Last Admin: 06/22/16 09:06 Dose: 75 mg Enoxaparin Sodium (Lovenox) 40 mg SC DAILY [facility] Last Admin: 06/22/16 09:06 Dose: 40 mg Famotidine (Pepcid) 20 mg PEG DAILY [facility] Last Admin: 06/22/16 09:06 Dose: 20 mg Fluconazole (Diflucan) 150 mg PO DAILY [facility] Stop: 06/27/16 11:30 Last Admin: 06/22/16 09:05 Dose: 150 mg Mupirocin (Bactroban Ointment) 0 gm TOP DAILY [facility] Last Admin: 06/22/16 10:00 Dose: 1 applic Oxybutynin Chloride (Ditropan Tab) 5 mg PEG TID [facility] Last Admin: 06/22/16 17:57 Dose: 5 mg Phenytoin (Dilantin) 100 mg PEG TID [facility] Last Admin: 06/22/16 17:56 Dose: 100 mg - Labs Labs: 06/23/16 09:10 06/23/16 09:10 PT 10.6 SECONDS (9.7-12.2) 11/24/15 14:10 INR 1.0 11/24/15 14:10 APTT 25 SECONDS (21-34) 11/24/15 14:10 - Constitutional Appears: Non-toxic, No Acute Distress, Chronically Ill - Head Exam Head Exam: NORMAL INSPECTION - Eye Exam Eye Exam: Normal appearance, PERRL - ENT Exam ENT Exam: Mucous Membranes Moist - Respiratory Exam Respiratory Exam: Clear to Ausculation Bilateral, NORMAL BREATHING PATTERN. absent: Rales, Rhonchi, Wheezes - Cardiovascular Exam Cardiovascular Exam: REGULAR RHYTHM, +S1, +S2 - GI/Abdominal Exam GI & Abdominal Exam: Soft, Normal Bowel Sounds Additional comments: PEG tube in place. dressing clean and dry - Exam Additional comments: Yoo in place - Extremities Exam Extremities Exam: absent: Pedal Edema - Neurological Exam Neurological Exam: Awake. absent: Alert, Oriented x3 - Skin Skin Exam: Normal Color, Warm Assessment and Plan - Assessment and Plan (Free Text) Assessment: 1) Anoxic encephalopathy Assessment & Plan: 06/23: no acute changes: continue with q2h turning, therapy, feeds through PEG site and suctioning trach routinely continue to monitor weekly labs Pending placement (2) Respiratory failure Assessment & Plan: 06/23: Continue trach care and suctioning as needed. Monitor (3) UTI (lower urinary tract infection) Assessment & Plan: Resolved Yoo catheter in place Continue Ditropan 5mg via PEG TID Monitor (4) CAD (coronary artery disease) Assessment & Plan: s/p cardiac stents on 06/13/15 Continue ASA 81mg via PEG daily Continue Plavix 75mg via PEG daily (5) Seizures Assessment & Plan: Continue Dilantin 100mg via PEG TID Continue seizure precautions Monitor (6) Bed sore Assessment & Plan: Resolved Continue wound care Prevalon boots in place to avoid heel ulcer development Continue to turn patient q2hrs Monitor with skin checks (7) Oral Thrush Assessment & Plan: Diflucan 150 mg PO (Gtube) daily x 7 days (started 06/20/16) (8) Prophylactic measure Assessment & Plan: Lovenox 40mg SC daily Pepcid 20mg via PEG BID <Donavan Hallman - Last Filed: 07/01/16 13:51> Objective - Vital Signs/Intake and Output Vital Signs (last 24 hours): Temp Pulse Resp BP Pulse Ox 98.1 F 81 20 135/86 96 07/01/16 08:00 07/01/16 08:00 07/01/16 08:00 07/01/16 08:00 07/01/16 08:00 Intake and Output: 07/01/16 07/01/16 06:59 18:59 Intake Total 1150 550 Output Total 1500 Balance -350 550 - Medications Medications: Current Medications Aspirin (Aspirin Chewable) 81 mg PEG DAILY [facility] Last Admin: 07/01/16 09:05 Dose: 81 mg Clopidogrel Bisulfate (Plavix) 75 mg PEG DAILY [facility] Last Admin: 07/01/16 09:05 Dose: 75 mg Enoxaparin Sodium (Lovenox) 40 mg SC DAILY [facility] Last Admin: 07/01/16 09:06 Dose: 40 mg Famotidine (Pepcid) 20 mg PEG DAILY [facility] Last Admin: 07/01/16 09:05 Dose: 20 mg Fluconazole (Diflucan) 150 mg PO DAILY [facility] Last Admin: 07/01/16 09:07 Dose: 150 mg Lactulose (Enulose) 20 gm PO QID [facility] Last Admin: 07/01/16 13:18 Dose: 20 gm Mupirocin (Bactroban Ointment) 0 gm TOP DAILY [facility] Last Admin: 07/01/16 09:08 Dose: 1 applic Oxybutynin Chloride (Ditropan Tab) 5 mg PEG TID [facility] Last Admin: 07/01/16 13:17 Dose: 5 mg Phenytoin (Dilantin) 100 mg PEG TID [facility] Last Admin: 07/01/16 13:15 Dose: 100 mg Polyethylene Glycol (Miralax) 17 gm PEG HS [facility] Last Admin: 06/30/16 21:46 Dose: 17 gm Sennosides (Senokot Tab) 8.6 mg PO Q72 [facility] - Labs Labs: 06/30/16 07:47 06/30/16 07:47 PT 10.6 SECONDS (9.7-12.2) 11/24/15 14:10 INR 1.0 11/24/15 14:10 APTT 25 SECONDS (21-34) 11/24/15 14:10 Attending/Attestation - Attestation I have personally seen and examined this patient.: Yes I have fully participated in the care of the patient.: Yes I have reviewed all pertinent clinical information, including history, physical exam and plan: Yes Notes (Text): Patient seen and examined with the resident's note. Agree with resident's evaluation, assessment and plan.
[2016-06-23] MEDS: Phenytoin 100 mg/4 ml Oral Susp UD PEG SCH ×3 (10:51→17:34)
[2016-06-23] MEDS: Enoxaparin 40 mg Syringe SC SCH (10:52)
[2016-06-24] MEDS: Enoxaparin 40 mg Syringe SC SCH (11:21)
[2016-06-24] MEDS: Phenytoin 100 mg/4 ml Oral Susp UD PEG SCH ×3 (11:23→17:22)
--- NOTE | 2016-06-24 16:03 | CP.PCM.PN ---
<aPti Naranjo AleksandraWillaDebra - Last Filed: 06/24/16 16:03> Subjective - Date & Time of Evaluation Date of Evaluation: 06/24/16 Time of Evaluation: 11:00 - Subjective Subjective: Patient seen and evaluated at bedside. Patient with anoxic encephalopathy, aphasic. Dressings around tracheostomy and peg tube intact and dry. No acute events overnight. Objective - Vital Signs/Intake and Output Vital Signs (last 24 hours): Temp Pulse Resp BP Pulse Ox 97.7 F 87 20 128/87 99 06/24/16 00:12 06/24/16 00:12 06/24/16 00:12 06/24/16 00:12 06/24/16 00:12 Intake and Output: 06/24/16 06/24/16 06:59 18:59 Intake Total 700 Output Total 900 Balance -200 - Medications Medications: Current Medications Aspirin (Aspirin Chewable) 81 mg PEG DAILY [facility] Last Admin: 06/24/16 11:23 Dose: 81 mg Clopidogrel Bisulfate (Plavix) 75 mg PEG DAILY [facility] Last Admin: 06/24/16 11:24 Dose: 75 mg Enoxaparin Sodium (Lovenox) 40 mg SC DAILY [facility] Last Admin: 06/24/16 11:21 Dose: 40 mg Famotidine (Pepcid) 20 mg PEG DAILY [facility] Last Admin: 06/24/16 11:23 Dose: 20 mg Fluconazole (Diflucan) 150 mg PO DAILY [facility] Stop: 06/27/16 11:30 Last Admin: 06/24/16 11:24 Dose: 150 mg Mupirocin (Bactroban Ointment) 0 gm TOP DAILY [facility] Last Admin: 06/24/16 11:25 Dose: 1 applic Oxybutynin Chloride (Ditropan Tab) 5 mg PEG TID [facility] Last Admin: 06/24/16 14:16 Dose: 5 mg Phenytoin (Dilantin) 100 mg PEG TID [facility] Last Admin: 06/24/16 14:16 Dose: 100 mg - Labs Labs: 06/23/16 09:10 06/23/16 09:10 PT 10.6 SECONDS (9.7-12.2) 11/24/15 14:10 INR 1.0 11/24/15 14:10 APTT 25 SECONDS (21-34) 11/24/15 14:10 - Constitutional Appears: No Acute Distress, Chronically Ill - Eye Exam Eye Exam: Normal appearance - ENT Exam ENT Exam: Mucous Membranes Moist - Respiratory Exam Respiratory Exam: Clear to Ausculation Bilateral, NORMAL BREATHING PATTERN Additional comments: Trach in place and dressing intact, no discharge noted - Cardiovascular Exam Cardiovascular Exam: REGULAR RHYTHM - GI/Abdominal Exam GI & Abdominal Exam: Normal Bowel Sounds Additional comments: PEG tube in place. dressing clean and dry - Exam Exam: NORMAL INSPECTION. absent: Scrotal Swelling Additional comments: baker in place. - Neurological Exam Neurological Exam: Awake. absent: Alert, Oriented x3 Assessment and Plan - Assessment and Plan (Free Text) Assessment: 1) Anoxic encephalopathy Assessment & Plan: 06/24: no acute changes: continue with q2h turning, therapy, feeds through PEG site and suctioning trach routinely continue to monitor weekly labs Pending placement (2) Respiratory failure Assessment & Plan: 06/24: Continue trach care and suctioning as needed. Monitor (3) UTI (lower urinary tract infection) Assessment & Plan: Resolved Baker catheter in place Continue Ditropan 5mg via PEG TID Monitor (4) CAD (coronary artery disease) Assessment & Plan: s/p cardiac stents on 06/13/15 Continue ASA 81mg via PEG daily Continue Plavix 75mg via PEG daily (5) Seizures Assessment & Plan: Continue Dilantin 100mg via PEG TID Continue seizure precautions Monitor (6) Bed sore Assessment & Plan: Resolved Continue wound care Prevalon boots in place to avoid heel ulcer development Continue to turn patient q2hrs Monitor with skin checks (7) Oral Thrush Assessment & Plan: Diflucan 150 mg PO (Gtube) daily x 7 days (started 06/20/16) (8) Prophylactic measure Assessment & Plan: Lovenox 40mg SC daily Pepcid 20mg via PEG BID <Colleen Braswell V - Last Filed: 06/25/16 00:31> Objective - Vital Signs/Intake and Output Vital Signs (last 24 hours): Temp Pulse Resp BP Pulse Ox 98.7 F 78 20 136/82 99 06/25/16 00:06 06/25/16 00:06 06/25/16 00:06 06/25/16 00:06 06/25/16 00:06 Intake and Output: 06/24/16 06/25/16 18:59 06:59 Intake Total 700 Output Total 400 700 Balance 300 -700 - Medications Medications: Current Medications Aspirin (Aspirin Chewable) 81 mg PEG DAILY [facility] Last Admin: 06/24/16 11:23 Dose: 81 mg Clopidogrel Bisulfate (Plavix) 75 mg PEG DAILY [facility] Last Admin: 06/24/16 11:24 Dose: 75 mg Enoxaparin Sodium (Lovenox) 40 mg SC DAILY [facility] Last Admin: 06/24/16 11:21 Dose: 40 mg Famotidine (Pepcid) 20 mg PEG DAILY [facility] Last Admin: 06/24/16 11:23 Dose: 20 mg Fluconazole (Diflucan) 150 mg PO DAILY [facility] Stop: 06/27/16 11:30 Last Admin: 06/24/16 11:24 Dose: 150 mg Mupirocin (Bactroban Ointment) 0 gm TOP DAILY [facility] Last Admin: 06/24/16 11:25 Dose: 1 applic Oxybutynin Chloride (Ditropan Tab) 5 mg PEG TID [facility] Last Admin: 06/24/16 17:22 Dose: 5 mg Phenytoin (Dilantin) 100 mg PEG TID [facility] Last Admin: 06/24/16 17:22 Dose: 100 mg - Labs Labs: 06/23/16 09:10 06/23/16 09:10 PT 10.6 SECONDS (9.7-12.2) 11/24/15 14:10 INR 1.0 11/24/15 14:10 APTT 25 SECONDS (21-34) 11/24/15 14:10 Attending/Attestation - Attestation I have personally seen and examined this patient.: Yes I have fully participated in the care of the patient.: Yes I have reviewed all pertinent clinical information, including history, physical exam and plan: Yes Notes (Text): 06/25/16 00:29 This is a late entry for 06/24/16. Patient seen and discussed during rounds. Agree with evaluation, physical exam, and assessment and plan. Pending placement.
[2016-06-25 08:24] LABS: ALBUMIN 3.6 g/dL (3.5-5.0)
[2016-06-25 08:26] LABS: GFR NON-AFRICAN AMERICAN > 60
[2016-06-25 08:27] LABS: ALB/GLOB RATIO 0.8 (1.0-2.1); ALT/SGPT 44 U/L (21-72); AST/SGOT 34 U/L (17-59); BLOOD UREA NITROGEN 19 mg/dL (9-20); CALCIUM 9.1 mg/dl (8.6-10.4)
--- NOTE | 2016-06-25 10:46 | CP.PCM.PN ---
<MarcellaPati Evelio - Last Filed: 06/25/16 10:42> Subjective - Date & Time of Evaluation Date of Evaluation: 06/25/16 Time of Evaluation: 10:15 - Subjective Subjective: Patient seen and examined. Patient is aphasic. Dressings around tracheostomy and peg tube intact and dry. No acute events overnight. Patient currently receiving feedings. Objective - Vital Signs/Intake and Output Vital Signs (last 24 hours): Temp Pulse Resp BP Pulse Ox 98.9 F 84 20 117/86 100 06/25/16 08:00 06/25/16 08:00 06/25/16 08:00 06/25/16 08:00 06/25/16 08:00 Intake and Output: 06/25/16 06/25/16 06:59 18:59 Intake Total 600 Output Total 1000 Balance -400 - Medications Medications: Current Medications Aspirin (Aspirin Chewable) 81 mg PEG DAILY [facility] Last Admin: 06/24/16 11:23 Dose: 81 mg Clopidogrel Bisulfate (Plavix) 75 mg PEG DAILY [facility] Last Admin: 06/24/16 11:24 Dose: 75 mg Enoxaparin Sodium (Lovenox) 40 mg SC DAILY [facility] Last Admin: 06/24/16 11:21 Dose: 40 mg Famotidine (Pepcid) 20 mg PEG DAILY [facility] Last Admin: 06/24/16 11:23 Dose: 20 mg Fluconazole (Diflucan) 150 mg PO DAILY [facility] Stop: 06/27/16 11:30 Last Admin: 06/24/16 11:24 Dose: 150 mg Mupirocin (Bactroban Ointment) 0 gm TOP DAILY [facility] Last Admin: 06/24/16 11:25 Dose: 1 applic Oxybutynin Chloride (Ditropan Tab) 5 mg PEG TID [facility] Last Admin: 06/24/16 17:22 Dose: 5 mg Phenytoin (Dilantin) 100 mg PEG TID [facility] Last Admin: 06/24/16 17:22 Dose: 100 mg - Labs Labs: 06/23/16 09:10 06/25/16 08:05 PT 10.6 SECONDS (9.7-12.2) 11/24/15 14:10 INR 1.0 11/24/15 14:10 APTT 25 SECONDS (21-34) 11/24/15 14:10 - Constitutional Appears: No Acute Distress - Eye Exam Eye Exam: Normal appearance - ENT Exam ENT Exam: Mucous Membranes Moist - Respiratory Exam Respiratory Exam: Clear to Ausculation Bilateral, NORMAL BREATHING PATTERN Additional comments: Trach in place and dressing intact, no discharge noted - Cardiovascular Exam Cardiovascular Exam: REGULAR RHYTHM - GI/Abdominal Exam GI & Abdominal Exam: Soft Additional comments: PEG tube in place. dressing clean and dry - Extremities Exam Additional comments: Boots in place - Neurological Exam Neurological Exam: Altered, Awake Assessment and Plan - Assessment and Plan (Free Text) Assessment: 1) Anoxic encephalopathy Assessment & Plan: 06/25: no acute changes: continue with q2h turning, therapy, feeds through PEG site and suctioning trach routinely continue to monitor weekly labs Pending placement (2) Respiratory failure Assessment & Plan: 06/25: Continue trach care and suctioning as needed. Monitor (3) UTI (lower urinary tract infection) Assessment & Plan: Resolved Yoo catheter in place Continue Ditropan 5mg via PEG TID Monitor (4) CAD (coronary artery disease) Assessment & Plan: s/p cardiac stents on 06/13/15 Continue ASA 81mg via PEG daily Continue Plavix 75mg via PEG daily (5) Seizures Assessment & Plan: Continue Dilantin 100mg via PEG TID Continue seizure precautions Monitor (6) Bed sore Assessment & Plan: Resolved Continue wound care Prevalon boots in place to avoid heel ulcer development Continue to turn patient q2hrs Monitor with skin checks (7) Oral Thrush Assessment & Plan: Diflucan 150 mg PO (Gtube) daily x 7 days (started 06/20/16- last day 06/26/16) (8) Prophylactic measure Assessment & Plan: Lovenox 40mg SC daily Pepcid 20mg via PEG BID <Colleen Braswell V - Last Filed: 06/26/16 00:47> Objective - Vital Signs/Intake and Output Vital Signs (last 24 hours): Temp Pulse Resp BP Pulse Ox 98.1 F 96 H 20 118/78 97 06/26/16 00:00 06/26/16 00:00 06/26/16 00:00 06/26/16 00:00 06/26/16 00:00 Intake and Output: 06/25/16 06/26/16 18:59 06:59 Intake Total 650 Output Total 1000 Balance -350 - Medications Medications: Current Medications Aspirin (Aspirin Chewable) 81 mg PEG DAILY [facility] Clopidogrel Bisulfate (Plavix) 75 mg PEG DAILY [facility] Enoxaparin Sodium (Lovenox) 40 mg SC DAILY [facility] Famotidine (Pepcid) 20 mg PEG DAILY [facility] Fluconazole (Diflucan) 150 mg PO DAILY [facility] Mupirocin (Bactroban Ointment) 0 gm TOP DAILY [facility] Oxybutynin Chloride (Ditropan Tab) 5 mg PEG TID [facility] Last Admin: 06/25/16 17:05 Dose: 5 mg Phenytoin (Dilantin) 100 mg PEG TID [facility] Last Admin: 06/25/16 17:05 Dose: 100 mg - Labs Labs: 06/23/16 09:10 06/25/16 08:05 PT 10.6 SECONDS (9.7-12.2) 11/24/15 14:10 INR 1.0 11/24/15 14:10 APTT 25 SECONDS (21-34) 11/24/15 14:10 Attending/Attestation - Attestation I have personally seen and examined this patient.: Yes I have fully participated in the care of the patient.: Yes I have reviewed all pertinent clinical information, including history, physical exam and plan: Yes Notes (Text): This is a late entry for 06/25/16. Patient seen, examined, and case discussed with resident. Agree with resident's physical exam and assessment and plain. Continue current management. Pending placement.
[2016-06-25] MEDS: Phenytoin 100 mg/4 ml Oral Susp UD PEG SCH ×3 (11:00→17:05)
[2016-06-25] MEDS: Enoxaparin 40 mg Syringe SC SCH (12:26)
[2016-06-26 08:18] LABS: BASO # 0.1 K/uL (0.0-0.2); BASO % 0.6 % (0.0-2.0); EOS # 0.3 K/uL (0.0-0.7); HEMOGLOBIN 13.5 g/dL (12.0-18.0); LYMPH # 2.2 K/uL (1.0-4.3); LYMPH % 20.6 % (20.0-40.0); MEAN CELL VOLUME 93.2 fL (80.0-94.0); MEAN CORPUSCULAR HGB CONC 32.2 g/dL (33.0-37.0); MEAN PLATELET VOLUME 8.8 fL (7.2-11.7); MONO # 0.9 K/uL (0.0-0.8); MONO % 7.9 % (0.0-10.0); NEUT # 7.3 K/uL (1.8-7.0); NEUT % 67.9 % (50.0-75.0); NRBC % 0.2 % (0.0-2.0); RBC 4.51 Mil/uL (4.40-5.90); RED CELL DISTRIBUTION WIDTH 14.3 % (11.5-14.5); WHITE BLOOD COUNT 10.8 K/uL (4.8-10.8)
[2016-06-26] MEDS: Phenytoin 100 mg/4 ml Oral Susp UD PEG SCH ×3 (11:22→17:47)
[2016-06-26] MEDS: Enoxaparin 40 mg Syringe SC SCH (11:24)
--- NOTE | 2016-06-26 15:08 | CP.PCM.PN ---
<Imani Ramon - Last Filed: 06/26/16 15:03> Subjective - Date & Time of Evaluation Date of Evaluation: 06/26/16 Time of Evaluation: 07:50 - Subjective Subjective: Patient seen and examined at bedside. Trach and peg intact/dry/nondraining. Patient is aphasic. Overnight resident was paged as family member complained that patient's abdomen seemed different. Resident went down to see patient and changed his baker. Patient had good urine output. No acute distress noted and patient was afebrile overnight. Patient receiving feedings. He is hemodynamically stable and pending placement. Objective - Vital Signs/Intake and Output Vital Signs (last 24 hours): Temp Pulse Resp BP Pulse Ox 98.9 F 86 20 119/77 99 06/26/16 08:10 06/26/16 08:10 06/26/16 08:10 06/26/16 08:10 06/26/16 08:10 Intake and Output: 06/26/16 06/26/16 06:59 18:59 Intake Total 400 Output Total 350 250 Balance 50 -250 - Medications Medications: Current Medications Aspirin (Aspirin Chewable) 81 mg PEG DAILY [facility] Last Admin: 06/26/16 11:21 Dose: 81 mg Clopidogrel Bisulfate (Plavix) 75 mg PEG DAILY [facility] Last Admin: 06/26/16 11:21 Dose: 75 mg Enoxaparin Sodium (Lovenox) 40 mg SC DAILY [facility] Last Admin: 06/26/16 11:24 Dose: 40 mg Famotidine (Pepcid) 20 mg PEG DAILY [facility] Last Admin: 06/26/16 11:21 Dose: 20 mg Fluconazole (Diflucan) 150 mg PO DAILY [facility] Last Admin: 06/26/16 11:22 Dose: 150 mg Mupirocin (Bactroban Ointment) 0 gm TOP DAILY [facility] Last Admin: 06/26/16 11:23 Dose: 1 applic Oxybutynin Chloride (Ditropan Tab) 5 mg PEG TID [facility] Last Admin: 06/26/16 14:23 Dose: 5 mg Phenytoin (Dilantin) 100 mg PEG TID [facility] Last Admin: 06/26/16 14:23 Dose: 100 mg - Labs Labs: 06/26/16 08:08 06/25/16 08:05 PT 10.6 SECONDS (9.7-12.2) 11/24/15 14:10 INR 1.0 11/24/15 14:10 APTT 25 SECONDS (21-34) 11/24/15 14:10 - Constitutional Appears: No Acute Distress - ENT Exam ENT Exam: Mucous Membranes Moist - Respiratory Exam Respiratory Exam: Clear to Ausculation Bilateral, NORMAL BREATHING PATTERN Additional comments: trach in place, dressings clean/dry/intact - Cardiovascular Exam Cardiovascular Exam: REGULAR RHYTHM, +S1, +S2. absent: Murmur - GI/Abdominal Exam GI & Abdominal Exam: Soft, Normal Bowel Sounds. absent: Distended, Firm Additional comments: PEG tube in place. dressing clean and dry - Exam Additional comments: Boots in place - Neurological Exam Neurological Exam: Awake. absent: Oriented x3 Assessment and Plan - Assessment and Plan (Free Text) Assessment: 1) Anoxic encephalopathy Assessment & Plan: 06/26: no acute changes: continue with q2h turning, therapy, feeds through PEG site and suctioning trach routinely continue to monitor weekly labs Pending placement (2) Respiratory failure Assessment & Plan: 06/26: Continue trach care and suctioning as needed. Monitor (3) UTI (lower urinary tract infection) Assessment & Plan: Resolved Baker catheter in place Continue Ditropan 5mg via PEG TID Monitor (4) CAD (coronary artery disease) Assessment & Plan: s/p cardiac stents on 06/13/15 Continue ASA 81mg via PEG daily Continue Plavix 75mg via PEG daily (5) Seizures Assessment & Plan: Continue Dilantin 100mg via PEG TID Continue seizure precautions Monitor (6) Bed sore Assessment & Plan: Resolved Continue wound care Prevalon boots in place to avoid heel ulcer development Continue to turn patient q2hrs Monitor with skin checks (7) Oral Thrush Assessment & Plan: Diflucan 150 mg PO daily x 7 days (started 06/20/16- last day 06/26/16) (8) Prophylactic measure Assessment & Plan: Lovenox 40mg SC daily Pepcid 20mg via PEG BID <Colleen Braswell V - Last Filed: 06/26/16 23:39> Objective - Vital Signs/Intake and Output Vital Signs (last 24 hours): Temp Pulse Resp BP Pulse Ox 98.1 F 76 20 131/85 99 06/26/16 16:40 06/26/16 16:40 06/26/16 16:40 06/26/16 16:40 06/26/16 16:40 Intake and Output: 06/26/16 06/27/16 18:59 06:59 Intake Total 350 Output Total 250 250 Balance -250 100 - Medications Medications: Current Medications Aspirin (Aspirin Chewable) 81 mg PEG DAILY [facility] Last Admin: 06/26/16 11:21 Dose: 81 mg Clopidogrel Bisulfate (Plavix) 75 mg PEG DAILY [facility] Last Admin: 06/26/16 11:21 Dose: 75 mg Enoxaparin Sodium (Lovenox) 40 mg SC DAILY [facility] Last Admin: 06/26/16 11:24 Dose: 40 mg Famotidine (Pepcid) 20 mg PEG DAILY [facility] Last Admin: 06/26/16 11:21 Dose: 20 mg Fluconazole (Diflucan) 150 mg PO DAILY [facility] Last Admin: 06/26/16 11:22 Dose: 150 mg Mupirocin (Bactroban Ointment) 0 gm TOP DAILY [facility] Last Admin: 06/26/16 11:23 Dose: 1 applic Oxybutynin Chloride (Ditropan Tab) 5 mg PEG TID [facility] Last Admin: 06/26/16 17:47 Dose: 5 mg Phenytoin (Dilantin) 100 mg PEG TID [facility] Last Admin: 06/26/16 17:47 Dose: 100 mg - Labs Labs: 06/26/16 08:08 06/25/16 08:05 PT 10.6 SECONDS (9.7-12.2) 11/24/15 14:10 INR 1.0 11/24/15 14:10 APTT 25 SECONDS (21-34) 11/24/15 14:10 Attending/Attestation - Attestation I have personally seen and examined this patient.: Yes I have fully participated in the care of the patient.: Yes I have reviewed all pertinent clinical information, including history, physical exam and plan: Yes Notes (Text): Patient seen, examined, and case discussed with resident. Agree with resident's physical exam and assessment and plain. Pending placement.
[2016-06-27] MEDS: Phenytoin 100 mg/4 ml Oral Susp UD PEG SCH ×3 (10:00→18:55)
[2016-06-27] MEDS: Enoxaparin 40 mg Syringe SC SCH (13:17)
--- NOTE | 2016-06-27 15:49 | CP.PCM.PN ---
<Pati Naranjo - Last Filed: 06/27/16 15:42> Subjective - Date & Time of Evaluation Date of Evaluation: 06/27/16 Time of Evaluation: 09:30 - Subjective Subjective: PGY 3 Medicine progress note Patient seen and examined. Patient is aphasic. Dressings around tracheostomy and peg tube intact and dry. No acute events overnight. Patient has had distended abdomen, will check abd ultrasound and bladder scan. Objective - Vital Signs/Intake and Output Vital Signs (last 24 hours): Temp Pulse Resp BP Pulse Ox 98.4 F 89 20 115/77 98 06/27/16 08:16 06/27/16 08:16 06/27/16 08:16 06/27/16 08:16 06/27/16 08:16 Intake and Output: 06/27/16 06/27/16 06:59 18:59 Intake Total 750 Output Total 550 Balance 200 - Medications Medications: Current Medications Aspirin (Aspirin Chewable) 81 mg PEG DAILY ON [facility] OF [facility] Last Admin: 06/27/16 13:16 Dose: 81 mg Clopidogrel Bisulfate (Plavix) 75 mg PEG DAILY [facility] Last Admin: 06/27/16 13:15 Dose: 75 mg Enoxaparin Sodium (Lovenox) 40 mg SC DAILY [facility] Last Admin: 06/27/16 13:17 Dose: 40 mg Famotidine (Pepcid) 20 mg PEG DAILY [facility] Last Admin: 06/27/16 13:16 Dose: 20 mg Fluconazole (Diflucan) 150 mg PO DAILY [facility] Last Admin: 06/27/16 13:14 Dose: 150 mg Mupirocin (Bactroban Ointment) 0 gm TOP DAILY [facility] Last Admin: 06/27/16 13:17 Dose: 1 applic Oxybutynin Chloride (Ditropan Tab) 5 mg PEG TID ON [facility] OF [facility] Last Admin: 06/27/16 13:16 Dose: 5 mg Phenytoin (Dilantin) 100 mg PEG TID ON [facility] Last Admin: 06/27/16 13:15 Dose: 100 mg - Labs Labs: 06/26/16 08:08 06/25/16 08:05 PT 10.6 SECONDS (9.7-12.2) 11/24/15 14:10 INR 1.0 11/24/15 14:10 APTT 25 SECONDS (21-34) 11/24/15 14:10 - Constitutional Appears: No Acute Distress - ENT Exam ENT Exam: Mucous Membranes Moist - Respiratory Exam Respiratory Exam: Decreased Breath Sounds - Cardiovascular Exam Cardiovascular Exam: REGULAR RHYTHM, +S1, +S2 - GI/Abdominal Exam GI & Abdominal Exam: Distended, Hypoactive Bowel Sounds. absent: Soft, Tenderness - Back Exam Back Exam: NORMAL INSPECTION - Neurological Exam Neurological Exam: Altered Assessment and Plan - Assessment and Plan (Free Text) Assessment: (1) Abdominal Distension f/u abdominal ultrasound and bladder ultrasound. baker in place (2) Anoxic encephalopathy Assessment & Plan: no acute changes: continue with q2h turning, therapy, feeds through PEG site and suctioning trach routinely continue to monitor weekly labs Pending placement (3) Respiratory failure Assessment & Plan: Continue trach care and suctioning as needed. Monitor (4) UTI (lower urinary tract infection) Assessment & Plan: Resolved Baker catheter in place Continue Ditropan 5mg via PEG TID Monitor (5) CAD (coronary artery disease) Assessment & Plan: s/p cardiac stents on 06/13/15 Continue ASA 81mg via PEG daily Continue Plavix 75mg via PEG daily (6) Seizures Assessment & Plan: Continue Dilantin 100mg via PEG TID Continue seizure precautions Monitor (7) Bed sore Assessment & Plan: Resolved Continue wound care Prevalon boots in place to avoid heel ulcer development Continue to turn patient q2hrs Monitor with skin checks (8) Oral Thrush Assessment & Plan: Resolved Completed 7 day course of Diflucan 150 mg PO (Gtube) daily (9) Prophylactic measure Assessment & Plan: Lovenox 40mg SC daily Pepcid 20mg via PEG BID <Colleen Barswell V - Last Filed: 06/27/16 19:09> Objective - Vital Signs/Intake and Output Vital Signs (last 24 hours): Temp Pulse Resp BP Pulse Ox 98.2 F 84 18 120/85 97 06/27/16 15:00 06/27/16 15:00 06/27/16 15:00 06/27/16 15:00 06/27/16 15:00 Intake and Output: 06/27/16 06/27/16 06:59 18:59 Intake Total 750 500 Output Total 550 200 Balance 200 300 - Medications Medications: Current Medications Aspirin (Aspirin Chewable) 81 mg PEG DAILY [facility] Last Admin: 06/27/16 13:16 Dose: 81 mg Clopidogrel Bisulfate (Plavix) 75 mg PEG DAILY [facility] Last Admin: 06/27/16 13:15 Dose: 75 mg Enoxaparin Sodium (Lovenox) 40 mg SC DAILY [facility] Last Admin: 06/27/16 13:17 Dose: 40 mg Famotidine (Pepcid) 20 mg PEG DAILY [facility] Last Admin: 06/27/16 13:16 Dose: 20 mg Fluconazole (Diflucan) 150 mg PO DAILY [facility] Last Admin: 06/27/16 13:14 Dose: 150 mg Mupirocin (Bactroban Ointment) 0 gm TOP DAILY [facility] Last Admin: 06/27/16 13:17 Dose: 1 applic Oxybutynin Chloride (Ditropan Tab) 5 mg PEG TID [facility] Last Admin: 06/27/16 18:55 Dose: 5 mg Phenytoin (Dilantin) 100 mg PEG TID ON [facility] Last Admin: 06/27/16 18:55 Dose: 100 mg - Labs Labs: 06/26/16 08:08 06/25/16 08:05 PT 10.6 SECONDS (9.7-12.2) 11/24/15 14:10 INR 1.0 11/24/15 14:10 APTT 25 SECONDS (21-34) 11/24/15 14:10 Attending/Attestation - Attestation I have personally seen and examined this patient.: Yes I have fully participated in the care of the patient.: Yes I have reviewed all pertinent clinical information, including history, physical exam and plan: Yes Notes (Text): Patient seen, examined and case discussed with resident. Ordered for abdominal US and bladder scan to assess abdominal distension. Continue current management
--- NOTE | 2016-06-28 03:23 | CP.PCM.PN ---
Subjective - Date & Time of Evaluation Date of Evaluation: 06/28/16 Time of Evaluation: 03:20 - Subjective Subjective: PGY1 MEDICINE NOTE Patient seen and examined at bedside. Trach and peg intact/dry/nondraining. Patient is aphasic. Patient had UO 450cc from 3pm-11pm and had a bladder scan that showed <15cc. Patient is tolertaing his feeds. No acute distress noted and patient was afebrile overnight. Patient had U/S abdomen done 06/27- results pending. He is hemodynamically stable and pending placement. Objective - Vital Signs/Intake and Output Vital Signs (last 24 hours): Temp Pulse Resp BP Pulse Ox 98.4 F 83 20 127/84 98 06/28/16 00:20 06/28/16 00:20 06/28/16 00:20 06/28/16 00:20 06/28/16 00:20 Intake and Output: 06/27/16 06/28/16 18:59 06:59 Intake Total 500 350 Output Total 200 450 Balance 300 -100 - Medications Medications: Current Medications Aspirin (Aspirin Chewable) 81 mg PEG DAILY [facility] Last Admin: 06/27/16 13:16 Dose: 81 mg Clopidogrel Bisulfate (Plavix) 75 mg PEG DAILY [facility] Last Admin: 06/27/16 13:15 Dose: 75 mg Enoxaparin Sodium (Lovenox) 40 mg SC DAILY [facility] Last Admin: 06/27/16 13:17 Dose: 40 mg Famotidine (Pepcid) 20 mg PEG DAILY [facility] Last Admin: 06/27/16 13:16 Dose: 20 mg Fluconazole (Diflucan) 150 mg PO DAILY [facility] Last Admin: 06/27/16 13:14 Dose: 150 mg Mupirocin (Bactroban Ointment) 0 gm TOP DAILY [facility] Last Admin: 06/27/16 13:17 Dose: 1 applic Oxybutynin Chloride (Ditropan Tab) 5 mg PEG TID [facility] Last Admin: 06/27/16 18:55 Dose: 5 mg Phenytoin (Dilantin) 100 mg PEG TID [facility] Last Admin: 06/27/16 18:55 Dose: 100 mg - Labs Labs: 06/26/16 08:08 06/25/16 08:05 PT 10.6 SECONDS (9.7-12.2) 11/24/15 14:10 INR 1.0 11/24/15 14:10 APTT 25 SECONDS (21-34) 11/24/15 14:10 - Constitutional Appears: No Acute Distress - Head Exam Head Exam: ATRAUMATIC, NORMAL INSPECTION, NORMOCEPHALIC - ENT Exam ENT Exam: Mucous Membranes Moist - Respiratory Exam Respiratory Exam: Decreased Breath Sounds - Cardiovascular Exam Cardiovascular Exam: REGULAR RHYTHM, +S1, +S2 - GI/Abdominal Exam GI & Abdominal Exam: Diminished Bowel Sounds, Hypoactive Bowel Sounds. absent: Tenderness - Back Exam Back Exam: NORMAL INSPECTION - Neurological Exam Neurological Exam: Altered Assessment and Plan - Assessment and Plan (Free Text) Assessment: (1) Abdominal Distension 06/27 bladder scan <15cc urine f/u abdominal ultrasound baker in place (2) Anoxic encephalopathy Assessment & Plan: 06/26: no acute changes: continue with q2h turning, therapy, feeds through PEG site and suctioning trach routinely continue to monitor weekly labs Pending placement (3) Respiratory failure Assessment & Plan: 06/28: Continue trach care and suctioning as needed. Monitor (4) UTI (lower urinary tract infection) Assessment & Plan: Resolved Baker catheter in place Continue Ditropan 5mg via PEG TID Monitor (5) CAD (coronary artery disease) Assessment & Plan: s/p cardiac stents on 06/13/15 Continue ASA 81mg via PEG daily Continue Plavix 75mg via PEG daily (6) Seizures Assessment & Plan: Continue Dilantin 100mg via PEG TID Continue seizure precautions Monitor (7) Bed sore Assessment & Plan: Resolved Continue wound care Prevalon boots in place to avoid heel ulcer development Continue to turn patient q2hrs Monitor with skin checks (8) Oral Thrush Assessment & Plan: Resolved Completed 7 day course of Diflucan 150 mg PO (Gtube) daily (9) Prophylactic measure Assessment & Plan: Lovenox 40mg SC daily Pepcid 20mg via PEG BID
[2016-06-28] MEDS: Enoxaparin 40 mg Syringe SC SCH (10:47)
[2016-06-28] MEDS: Phenytoin 100 mg/4 ml Oral Susp UD PEG SCH ×3 (10:48→17:43)
--- NOTE | 2016-06-28 18:40 | US ---
Abdominal ultrasound 06/27/2016. History: Abdominal distention. Sonographic evaluation of the abdomen limited to the right upper quadrant performed Findings: The liver exhibits normal size measuring approximately 15.2 cm in CC dimension. Liver exhibits increased echotexture suggesting fatty hepatic infiltration however other infiltrative hepatocellular disease process not excluded. Liver demonstrates smooth contour. Are at least 2 calcifications seen in the right lobe of the liver 1 measuring 0.8 x 0.4 x 0.7 cm and 2nd measuring approximately 0.6 x 0.7 x 0.86 cm ; rule out prior exposure to granulomatous disease process. Gallbladder is physiologically distended. No evidence of intraluminal gallbladder calculi, gallbladder polyps or sludge. No wall edema or sonographic Bernal sign. Common bile duct measures 2.8 mm. Pancreas not visualized on this study. Right kidney measures 10.2 x 4.1 x 4.4 cm. No evidence of shadowing calculi or hydronephrosis Impression: Findings consistent with fatty hepatic infiltration. There are 2 hepatic calcification nonspecific ; rule out prior exposure to a granulomatous disease process.
--- NOTE | 2016-06-29 03:30 | CP.PCM.PN ---
<Imani Ramon - Last Filed: 06/29/16 03:27> Subjective - Date & Time of Evaluation Date of Evaluation: 06/29/16 Time of Evaluation: 03:25 - Subjective Subjective: PGY1 MEDICINE NOTE Patient seen and examined at bedside. Trach and peg intact/dry/nondraining. Patient is aphasic. Patient had UO 700cc from 3pm-11pm and had a bladder scan that showed <15cc 06/27/16. Patient is tolertaing his feeds. No acute distress noted and patient was afebrile overnight. Patient had U/S abdomen done 06/27 showing findings consistent with fatty hepatic infiltration. 2 hepatic calcification nonspecific; rule out prior exposure to a granulomatous disease process [pls see full report]. Patient is hemodynamically stable and pending placement. Objective - Vital Signs/Intake and Output Vital Signs (last 24 hours): Temp Pulse Resp BP Pulse Ox 98.8 F 87 20 134/92 H 97 06/29/16 01:00 06/29/16 01:00 06/29/16 01:00 06/29/16 01:00 06/29/16 01:00 Intake and Output: 06/28/16 06/29/16 18:59 06:59 Intake Total 500 Output Total 300 700 Balance 200 -700 - Medications Medications: Current Medications Aspirin (Aspirin Chewable) 81 mg PEG DAILY [facility] Last Admin: 06/28/16 10:48 Dose: 81 mg Clopidogrel Bisulfate (Plavix) 75 mg PEG DAILY [facility] Last Admin: 06/28/16 10:48 Dose: 75 mg Enoxaparin Sodium (Lovenox) 40 mg SC DAILY [facility] Last Admin: 06/28/16 10:47 Dose: 40 mg Famotidine (Pepcid) 20 mg PEG DAILY [facility] Last Admin: 06/28/16 10:48 Dose: 20 mg Fluconazole (Diflucan) 150 mg PO DAILY [facility] Last Admin: 06/28/16 10:48 Dose: 150 mg Mupirocin (Bactroban Ointment) 0 gm TOP DAILY [facility] Last Admin: 06/28/16 10:47 Dose: 1 applic Oxybutynin Chloride (Ditropan Tab) 5 mg PEG TID [facility] Last Admin: 06/28/16 17:43 Dose: 5 mg Phenytoin (Dilantin) 100 mg PEG TID [facility] Last Admin: 06/28/16 17:43 Dose: 100 mg - Labs Labs: 06/26/16 08:08 06/25/16 08:05 PT 10.6 SECONDS (9.7-12.2) 11/24/15 14:10 INR 1.0 11/24/15 14:10 APTT 25 SECONDS (21-34) 11/24/15 14:10 - Constitutional Appears: No Acute Distress - Head Exam Head Exam: ATRAUMATIC, NORMAL INSPECTION, NORMOCEPHALIC - ENT Exam ENT Exam: Mucous Membranes Moist - Respiratory Exam Respiratory Exam: Decreased Breath Sounds - Cardiovascular Exam Cardiovascular Exam: REGULAR RHYTHM, +S1, +S2 - GI/Abdominal Exam GI & Abdominal Exam: Diminished Bowel Sounds, Hypoactive Bowel Sounds. absent: Rigid - Neurological Exam Neurological Exam: Altered Assessment and Plan - Assessment and Plan (Free Text) Assessment: (1) Abdominal Distension 06/27 bladder scan <15cc urine 06/28 abd u/s findings consistent with fatty hepatic infiltrtaion. There are 2 hepatic calcification nonspecific; r/o prior exposure to a granulomatous disease [pls see full report] 700cc UO 3-11pm baker in place Continue Ditropan 5mg via PEG TID (2) Anoxic encephalopathy Assessment & Plan: 06/29: no acute changes: continue with q2h turning, therapy, feeds through PEG site and suctioning trach routinely continue to monitor weekly labs Pending placement (3) Respiratory failure Assessment & Plan: 06/29: Continue trach care and suctioning as needed. Monitor (4) UTI (lower urinary tract infection) Assessment & Plan: Resolved Baker catheter in place f/u CBC on Saturday 06/30 Monitor (5) CAD (coronary artery disease) Assessment & Plan: s/p cardiac stents on 06/13/15 Continue ASA 81mg via PEG daily Continue Plavix 75mg via PEG daily (6) Seizures Assessment & Plan: Continue Dilantin 100mg via PEG TID Continue seizure precautions Monitor (7) Bed sore Assessment & Plan: Resolved Continue wound care Prevalon boots in place to avoid heel ulcer development Continue to turn patient q2hrs Monitor with skin checks (8) Oral Thrush Assessment & Plan: Diflucan 150 mg PO (Gtube) daily (9) Prophylactic measure Assessment & Plan: Lovenox 40mg SC daily Pepcid 20mg via PEG BID <Colleen Braswell V - Last Filed: 06/29/16 21:37> Subjective - Date & Time of Evaluation Date of Evaluation: 06/29/16 Objective - Vital Signs/Intake and Output Vital Signs (last 24 hours): Temp Pulse Resp BP Pulse Ox 98.7 F 79 20 132/82 97 06/29/16 16:23 06/29/16 16:23 06/29/16 16:23 06/29/16 16:23 06/29/16 16:23 Intake and Output: 06/29/16 06/30/16 18:59 06:59 Intake Total 850 Output Total 600 Balance 250 - Medications Medications: Current Medications Aspirin (Aspirin Chewable) 81 mg PEG DAILY [facility] Last Admin: 06/29/16 11:22 Dose: 81 mg Clopidogrel Bisulfate (Plavix) 75 mg PEG DAILY [facility] Last Admin: 06/29/16 11:24 Dose: 75 mg Enoxaparin Sodium (Lovenox) 40 mg SC DAILY [facility] Last Admin: 06/29/16 11:24 Dose: 40 mg Famotidine (Pepcid) 20 mg PEG DAILY [facility] Last Admin: 06/29/16 11:24 Dose: 20 mg Fluconazole (Diflucan) 150 mg PO DAILY [facility] Last Admin: 06/29/16 11:23 Dose: 150 mg Mupirocin (Bactroban Ointment) 0 gm TOP DAILY [facility] Last Admin: 06/29/16 11:22 Dose: 1 applic Oxybutynin Chloride (Ditropan Tab) 5 mg PEG TID [facility] Last Admin: 06/29/16 17:51 Dose: 5 mg Phenytoin (Dilantin) 100 mg PEG TID [facility] Last Admin: 06/29/16 17:51 Dose: 100 mg - Labs Labs: 06/26/16 08:08 06/25/16 08:05 PT 10.6 SECONDS (9.7-12.2) 11/24/15 14:10 INR 1.0 11/24/15 14:10 APTT 25 SECONDS (21-34) 11/24/15 14:10 Attending/Attestation - Attestation I have personally seen and examined this patient.: Yes I have fully participated in the care of the patient.: Yes I have reviewed all pertinent clinical information, including history, physical exam and plan: Yes Notes (Text): Patient seen, examined and case discussed with resident. Agree with assessment and plan of resident. Continue current management. Awaiting placement. Physical Examination General: No Acute Distress, Chronically Ill ENT: Mucous Membranes Moist Lungs: Clear to Ausculation Bilateral, NORMAL BREATHING PATTERN, Trach in place and dressing intact, no discharge noted Abdomen: soft, nontender, mild distension, normal bowel sounds, peg tube in place, dressing clean and dry Baker in place Neuro: Awake
[2016-06-29] MEDS: Phenytoin 100 mg/4 ml Oral Susp UD PEG SCH ×3 (11:23→17:51)
[2016-06-29] MEDS: Enoxaparin 40 mg Syringe SC SCH (11:24)
[2016-06-30 07:54] LABS: BASO # 0.1 K/uL (0.0-0.2); BASO % 0.5 % (0.0-2.0); EOS # 0.4 K/uL (0.0-0.7); EOS % 4.4 % (0.0-4.0); HEMOGLOBIN 12.3 g/dL (12.0-18.0); LYMPH # 2.1 K/uL (1.0-4.3); LYMPH % 21.4 % (20.0-40.0); MEAN CELL VOLUME 92.3 fL (80.0-94.0); MEAN CORPUSCULAR HEMOGLOBIN 29.7 pg (27.0-31.0); MEAN CORPUSCULAR HGB CONC 32.1 g/dL (33.0-37.0); MEAN PLATELET VOLUME 8.6 fL (7.2-11.7); MONO # 0.9 K/uL (0.0-0.8); MONO % 8.8 % (0.0-10.0); NEUT # 6.4 K/uL (1.8-7.0); NEUT % 64.9 % (50.0-75.0); NRBC % 0.1 % (0.0-2.0); RBC 4.15 Mil/uL (4.40-5.90); RED CELL DISTRIBUTION WIDTH 14.4 % (11.5-14.5); WHITE BLOOD COUNT 9.8 K/uL (4.8-10.8)
[2016-06-30 08:11] LABS: ALBUMIN 3.4 g/dL (3.5-5.0)
[2016-06-30 08:13] LABS: GFR NON-AFRICAN AMERICAN > 60
[2016-06-30 08:14] LABS: ALB/GLOB RATIO 0.9 (1.0-2.1); ALT/SGPT 40 U/L (21-72); AST/SGOT 30 U/L (17-59); BLOOD UREA NITROGEN 20 mg/dL (9-20); CALCIUM 8.7 mg/dl (8.6-10.4)
--- NOTE | 2016-06-30 09:36 | CP.PCM.PN ---
<Geoffrey Liu - Last Filed: 06/30/16 18:27> Subjective - Date & Time of Evaluation Date of Evaluation: 06/30/16 Time of Evaluation: 07:40 - Subjective Subjective: PGY1 Medicine Note. Dr. Hallman service. Pt seen and examined at bedside. No acute changes overnight. Trach collar intact. as per nurse, no BM over the weekend, small bm on Thursday. No fevers, no chills, no respiratory distress. As per nurse, pt is responsive to pain, non verbal. Objective - Vital Signs/Intake and Output Vital Signs (last 24 hours): Temp Pulse Resp BP Pulse Ox 98.7 F 84 20 129/72 98 06/30/16 07:00 06/30/16 07:00 06/30/16 07:00 06/30/16 07:00 06/30/16 07:00 Intake and Output: 06/30/16 06/30/16 06:59 18:59 Intake Total 1300 Output Total 1050 Balance 250 - Medications Medications: Current Medications Aspirin (Aspirin Chewable) 81 mg PEG DAILY [facility] Last Admin: 06/29/16 11:22 Dose: 81 mg Clopidogrel Bisulfate (Plavix) 75 mg PEG DAILY [facility] Last Admin: 06/29/16 11:24 Dose: 75 mg Enoxaparin Sodium (Lovenox) 40 mg SC DAILY [facility] Last Admin: 06/29/16 11:24 Dose: 40 mg Famotidine (Pepcid) 20 mg PEG DAILY [facility] Last Admin: 06/29/16 11:24 Dose: 20 mg Fluconazole (Diflucan) 150 mg PO DAILY [facility] Last Admin: 06/29/16 11:23 Dose: 150 mg Mupirocin (Bactroban Ointment) 0 gm TOP DAILY [facility] Last Admin: 06/29/16 11:22 Dose: 1 applic Oxybutynin Chloride (Ditropan Tab) 5 mg PEG TID [facility] Last Admin: 06/29/16 17:51 Dose: 5 mg Phenytoin (Dilantin) 100 mg PEG TID [facility] Last Admin: 06/29/16 17:51 Dose: 100 mg - Labs Labs: 06/30/16 07:47 06/30/16 07:47 PT 10.6 SECONDS (9.7-12.2) 11/24/15 14:10 INR 1.0 11/24/15 14:10 APTT 25 SECONDS (21-34) 11/24/15 14:10 - Constitutional Appears: No Acute Distress - Head Exam Head Exam: ATRAUMATIC, NORMAL INSPECTION, NORMOCEPHALIC - Eye Exam Eye Exam: EOMI - ENT Exam ENT Exam: Mucous Membranes Moist - Respiratory Exam Respiratory Exam: Clear to Ausculation Bilateral, NORMAL BREATHING PATTERN - Cardiovascular Exam Cardiovascular Exam: RRR, +S1, +S2. absent: Murmur - GI/Abdominal Exam GI & Abdominal Exam: Soft, Normal Bowel Sounds - Exam Exam: NORMAL INSPECTION (baker in place. ). absent: Uretheral Discharge - Neurological Exam Additional comments: PT is asleep, moves to sternal rub, not to voice. Assessment and Plan - Assessment and Plan (Free Text) Assessment: (1) Abdominal Distension 06/30 - Abd x-ray: Fecal impaction present. Consider disimpaction vs. Miralax vs Senna. Start Miralax qHS and Senna q72hrs for suspected constipation. 06/27 bladder scan <15cc urine 06/28 abd u/s findings consistent with fatty hepatic infiltrtaion. There are 2 hepatic calcification nonspecific; r/o prior exposure to a granulomatous disease [pls see full report] 700cc UO 3-11pm baker in place Continue Ditropan 5mg via PEG TID (2) Anoxic encephalopathy Assessment & Plan: 06/29: no acute changes: continue with q2h turning, therapy, feeds through PEG site and suctioning trach routinely continue to monitor weekly labs Pending placement (3) Respiratory failure Assessment & Plan: 06/29: Continue trach care and suctioning as needed. Monitor (4) UTI (lower urinary tract infection) Assessment & Plan: Resolved Baker catheter in place f/u CBC on Saturday 06/30 Monitor (5) CAD (coronary artery disease) Assessment & Plan: s/p cardiac stents on 06/13/15 Continue ASA 81mg via PEG daily Continue Plavix 75mg via PEG daily (6) Seizures Assessment & Plan: Continue Dilantin 100mg via PEG TID Continue seizure precautions Monitor (7) Bed sore Assessment & Plan: Resolved Continue wound care Prevalon boots in place to avoid heel ulcer development Continue to turn patient q2hrs Monitor with skin checks (8) Oral Thrush Assessment & Plan: Diflucan 150 mg PO (Gtube) daily (9) Prophylactic measure Assessment & Plan: Lovenox 40mg SC daily Pepcid 20mg via PEG BID <Donavan Hallman - Last Filed: 07/02/16 12:09> Objective - Vital Signs/Intake and Output Vital Signs (last 24 hours): Temp Pulse Resp BP Pulse Ox 99 F 89 20 130/81 100 07/02/16 08:00 07/02/16 08:00 07/02/16 08:00 07/02/16 08:00 07/02/16 08:00 Intake and Output: 07/02/16 07/02/16 06:59 18:59 Intake Total 1200 Output Total 1300 Balance -100 - Medications Medications: Current Medications Aspirin (Aspirin Chewable) 81 mg PEG DAILY [facility] Last Admin: 07/02/16 09:08 Dose: 81 mg Clopidogrel Bisulfate (Plavix) 75 mg PEG DAILY [facility] Last Admin: 07/02/16 09:10 Dose: 75 mg Enoxaparin Sodium (Lovenox) 40 mg SC DAILY [facility] Last Admin: 07/02/16 09:10 Dose: 40 mg Famotidine (Pepcid) 20 mg PEG DAILY [facility] Last Admin: 07/02/16 09:10 Dose: 20 mg Fluconazole (Diflucan) 150 mg PO DAILY [facility] Last Admin: 07/02/16 09:09 Dose: 150 mg Lactulose (Enulose) 20 gm PO QID [facility] Last Admin: 07/02/16 09:10 Dose: 20 gm Mupirocin (Bactroban Ointment) 0 gm TOP DAILY [facility] Last Admin: 07/02/16 09:08 Dose: 1 applic Oxybutynin Chloride (Ditropan Tab) 5 mg PEG TID [facility] Last Admin: 07/02/16 09:09 Dose: 5 mg Phenytoin (Dilantin) 100 mg PEG TID [facility] Last Admin: 07/02/16 09:09 Dose: 100 mg Polyethylene Glycol (Miralax) 17 gm PEG HS [facility] Last Admin: 07/01/16 21:31 Dose: 17 gm Sennosides (Senokot Tab) 8.6 mg PO Q72 [facility] - Labs Labs: 06/30/16 07:47 07/02/16 08:04 PT 10.6 SECONDS (9.7-12.2) 01/02/16 14:10 INR 1.0 11/24/15 14:10 APTT 25 SECONDS (21-34) 11/24/15 14:10 Attending/Attestation - Attestation I have personally seen and examined this patient.: Yes I have fully participated in the care of the patient.: Yes I have reviewed all pertinent clinical information, including history, physical exam and plan: Yes Notes (Text): Patient seen and examined with resident. Agree with resident's evaluation, assessment and plan.
[2016-06-30] MEDS: Enoxaparin 40 mg Syringe SC SCH (10:31)
[2016-06-30] MEDS: Phenytoin 100 mg/4 ml Oral Susp UD PEG SCH ×3 (10:32→17:39)
--- NOTE | 2016-06-30 16:53 | RAD ---
HISTORY: Abd distention COMPARISON: Multiple priors FINDINGS: BOWEL: There is fecal impaction present. BONES: Normal. OTHER FINDINGS: None. IMPRESSION: Fecal impaction present. Disimpaction is recommended.
[2016-06-30] MEDS: POLYETHYLENE GLYCOL 3350 17 GM/Dose PACKET PEG SCH (21:46)
[2016-07-01] MEDS: Enoxaparin 40 mg Syringe SC SCH (09:06)
[2016-07-01] MEDS: Phenytoin 100 mg/4 ml Oral Susp UD PEG SCH ×3 (09:09→18:27)
--- NOTE | 2016-07-01 11:37 | CP.PCM.PN ---
<Judith Baires H - Last Filed: 07/01/16 11:35> Subjective - Date & Time of Evaluation Date of Evaluation: 07/01/16 Time of Evaluation: 09:15 - Subjective Subjective: PGY2 Medicine Note - Dr. Beth's service: Patient seen and evaluated at bedside this AM. No acute changes overnight. Trach collar intact. No bM since small BM on Thursday. Patient received one dose of Miralax and one dose of Sennakot yesterday. Will start lactulose today. Patient has reflexes to pain. Patient does not follow commands. Patient nonverbal. ROS unable to be obtained. Objective - Vital Signs/Intake and Output Vital Signs (last 24 hours): Temp Pulse Resp BP Pulse Ox 98.1 F 81 20 135/86 96 07/01/16 08:00 07/01/16 08:00 07/01/16 08:00 07/01/16 08:00 07/01/16 08:00 Intake and Output: 07/01/16 07/01/16 06:59 18:59 Intake Total 1150 550 Output Total 1500 Balance -350 550 - Medications Medications: Current Medications Aspirin (Aspirin Chewable) 81 mg PEG DAILY [facility] Last Admin: 07/01/16 09:05 Dose: 81 mg Clopidogrel Bisulfate (Plavix) 75 mg PEG DAILY [facility] Last Admin: 07/01/16 09:05 Dose: 75 mg Enoxaparin Sodium (Lovenox) 40 mg SC DAILY [facility] Last Admin: 07/01/16 09:06 Dose: 40 mg Famotidine (Pepcid) 20 mg PEG DAILY [facility] Last Admin: 07/01/16 09:05 Dose: 20 mg Fluconazole (Diflucan) 150 mg PO DAILY [facility] Last Admin: 07/01/16 09:07 Dose: 150 mg Lactulose (Enulose) 20 gm PO QID [facility] Mupirocin (Bactroban Ointment) 0 gm TOP DAILY [facility] Last Admin: 07/01/16 09:08 Dose: 1 applic Oxybutynin Chloride (Ditropan Tab) 5 mg PEG TID [facility] Last Admin: 07/01/16 09:09 Dose: 5 mg Phenytoin (Dilantin) 100 mg PEG TID [facility] Last Admin: 07/01/16 09:09 Dose: 100 mg Polyethylene Glycol (Miralax) 17 gm PEG HS [facility] Last Admin: 06/30/16 21:46 Dose: 17 gm Sennosides (Senokot Tab) 8.6 mg PO Q72 [facility] - Labs Labs: 06/30/16 07:47 06/30/16 07:47 PT 10.6 SECONDS (9.7-12.2) 11/24/15 14:10 INR 1.0 11/24/15 14:10 APTT 25 SECONDS (21-34) 11/24/15 14:10 - Constitutional Appears: No Acute Distress, Chronically Ill - Head Exam Head Exam: ATRAUMATIC, NORMAL INSPECTION - Eye Exam Eye Exam: PERRL. absent: Scleral icterus - ENT Exam ENT Exam: Mucous Membranes Dry - Respiratory Exam Respiratory Exam: Clear to Ausculation Bilateral, NORMAL BREATHING PATTERN. absent: Rales, Rhonchi, Wheezes - Cardiovascular Exam Cardiovascular Exam: REGULAR RHYTHM, +S1, +S2. absent: Gallop, Rubs, Murmur - GI/Abdominal Exam GI & Abdominal Exam: Distended, Hypoactive Bowel Sounds - Extremities Exam Extremities Exam: Normal Capillary Refill. absent: Pedal Edema - Neurological Exam Neurological Exam: Reflexes Normal. absent: Alert, Oriented x3 - Skin Skin Exam: Normal Color, Warm Assessment and Plan - Assessment and Plan (Free Text) Assessment: (1) Abdominal Distension 07/01 - starting Lactulose QID until BM 06/30 - Abd x-ray: Fecal impaction present. Consider disimpaction vs. Miralax vs Senna. Start Miralax qHS and Senna q72hrs for suspected constipation. 06/27 bladder scan <15cc urine 06/28 abd u/s findings consistent with fatty hepatic infiltrtaion. There are 2 hepatic calcification nonspecific; r/o prior exposure to a granulomatous disease [pls see full report] 700cc UO 3-11pm baker in place Continue Ditropan 5mg via PEG TID (2) Anoxic encephalopathy Assessment & Plan: 06/29: no acute changes: continue with q2h turning, therapy, feeds through PEG site and suctioning trach routinely continue to monitor weekly labs Pending placement (3) Respiratory failure Assessment & Plan: 06/29: Continue trach care and suctioning as needed. Monitor (4) UTI (lower urinary tract infection) Assessment & Plan: Resolved Baker catheter in place WBC 9.8 on 06/30/16 Monitor (5) CAD (coronary artery disease) Assessment & Plan: s/p cardiac stents on 06/13/15 Continue ASA 81mg via PEG daily Continue Plavix 75mg via PEG daily (6) Seizures Assessment & Plan: Continue Dilantin 100mg via PEG TID Continue seizure precautions Monitor (7) Bed sore Assessment & Plan: Resolved Continue wound care Prevalon boots in place to avoid heel ulcer development Continue to turn patient q2hrs Monitor with skin checks (8) Oral Thrush Assessment & Plan: Diflucan 150 mg PO (Gtube) daily (9) Prophylactic measure Assessment & Plan: Lovenox 40mg SC daily Pepcid 20mg via PEG BID <Nathaniel Beth - Last Filed: 07/02/16 08:56> Objective - Vital Signs/Intake and Output Vital Signs (last 24 hours): Temp Pulse Resp BP Pulse Ox 99 F 89 20 130/81 100 07/02/16 08:00 07/02/16 08:00 07/02/16 08:00 07/02/16 08:00 07/02/16 08:00 Intake and Output: 07/02/16 07/02/16 06:59 18:59 Intake Total 1200 Output Total 1300 Balance -100 - Medications Medications: Current Medications Aspirin (Aspirin Chewable) 81 mg PEG DAILY [facility] Last Admin: 07/01/16 09:05 Dose: 81 mg Clopidogrel Bisulfate (Plavix) 75 mg PEG DAILY [facility] Last Admin: 07/01/16 09:05 Dose: 75 mg Enoxaparin Sodium (Lovenox) 40 mg SC DAILY [facility] Last Admin: 07/01/16 09:06 Dose: 40 mg Famotidine (Pepcid) 20 mg PEG DAILY [facility] Last Admin: 07/01/16 09:05 Dose: 20 mg Fluconazole (Diflucan) 150 mg PO DAILY [facility] Last Admin: 07/01/16 09:07 Dose: 150 mg Lactulose (Enulose) 20 gm PO QID [facility] Last Admin: 07/01/16 21:31 Dose: 20 gm Mupirocin (Bactroban Ointment) 0 gm TOP DAILY [facility] Last Admin: 07/01/16 09:08 Dose: 1 applic Oxybutynin Chloride (Ditropan Tab) 5 mg PEG TID [facility] Last Admin: 07/01/16 18:27 Dose: 5 mg Phenytoin (Dilantin) 100 mg PEG TID [facility] Last Admin: 07/01/16 18:27 Dose: 100 mg Polyethylene Glycol (Miralax) 17 gm PEG HS [facility] Last Admin: 07/01/16 21:31 Dose: 17 gm Sennosides (Senokot Tab) 8.6 mg PO Q72 JOO - Labs Labs: 06/30/16 07:47 07/02/16 08:04 PT 10.6 SECONDS (9.7-12.2) 11/24/15 14:10 INR 1.0 11/24/15 14:10 APTT 25 SECONDS (21-34) 11/24/15 14:10 Attending/Attestation - Attestation I have personally seen and examined this patient.: Yes I have fully participated in the care of the patient.: Yes I have reviewed all pertinent clinical information, including history, physical exam and plan: Yes Notes (Text): Patient seen and examined with resident; I agree with the plan as outline above; We will give trial of lactulose q4h before moving to manual disimpaction of stool. 07/02/16 08:55
[2016-07-01] MEDS: POLYETHYLENE GLYCOL 3350 17 GM/Dose PACKET PEG SCH (21:31)
[2016-07-02 08:28] LABS: ALBUMIN 3.4 g/dL (3.5-5.0)
[2016-07-02 08:31] LABS: AST/SGOT 26 U/L (17-59); GFR NON-AFRICAN AMERICAN > 60
[2016-07-02 08:32] LABS: ALB/GLOB RATIO 0.9 (1.0-2.1); ALT/SGPT 42 U/L (21-72); BLOOD UREA NITROGEN 14 mg/dL (9-20); CALCIUM 8.7 mg/dl (8.6-10.4)
[2016-07-02] MEDS: Phenytoin 100 mg/4 ml Oral Susp UD PEG SCH ×3 (09:09→17:45)
[2016-07-02] MEDS: Enoxaparin 40 mg Syringe SC SCH (09:10)
--- NOTE | 2016-07-02 14:22 | CP.PCM.PN ---
<MarcellaPati Evelio - Last Filed: 07/02/16 14:18> Subjective - Date & Time of Evaluation Date of Evaluation: 07/02/16 Time of Evaluation: 09:40 - Subjective Subjective: PGY 3 Medicine progress note Patient seen and examined. Patient is aphasic. Dressings around tracheostomy and peg tube intact and dry. No acute events overnight per RN. Patient has had 2 BM, since yesterday. Some resolution of distension appreciated. Objective - Vital Signs/Intake and Output Vital Signs (last 24 hours): Temp Pulse Resp BP Pulse Ox 99 F 89 20 130/81 100 07/02/16 08:00 07/02/16 08:00 07/02/16 08:00 07/02/16 08:00 07/02/16 08:00 Intake and Output: 07/02/16 07/02/16 06:59 18:59 Intake Total 1200 Output Total 1300 Balance -100 - Medications Medications: Current Medications Aspirin (Aspirin Chewable) 81 mg PEG DAILY [facility] Last Admin: 07/02/16 09:08 Dose: 81 mg Clopidogrel Bisulfate (Plavix) 75 mg PEG DAILY [facility] Last Admin: 07/02/16 09:10 Dose: 75 mg Enoxaparin Sodium (Lovenox) 40 mg SC DAILY [facility] Last Admin: 07/02/16 09:10 Dose: 40 mg Famotidine (Pepcid) 20 mg PEG DAILY [facility] Last Admin: 07/02/16 09:10 Dose: 20 mg Fluconazole (Diflucan) 150 mg PO DAILY [facility] Last Admin: 07/02/16 09:09 Dose: 150 mg Lactulose (Enulose) 20 gm PO QID [facility] Last Admin: 07/02/16 13:30 Dose: 20 gm Mupirocin (Bactroban Ointment) 0 gm TOP DAILY [facility] Last Admin: 07/02/16 09:08 Dose: 1 applic Oxybutynin Chloride (Ditropan Tab) 5 mg PEG TID [facility] Last Admin: 07/02/16 13:28 Dose: 5 mg Phenytoin (Dilantin) 100 mg PEG TID [facility] Last Admin: 07/02/16 13:30 Dose: 100 mg Polyethylene Glycol (Miralax) 17 gm PEG HS [facility] Last Admin: 07/01/16 21:31 Dose: 17 gm Sennosides (Senokot Tab) 8.6 mg PO Q72 [facility] - Labs Labs: 06/30/16 07:47 07/02/16 08:04 PT 10.6 SECONDS (9.7-12.2) 11/24/15 14:10 INR 1.0 11/24/15 14:10 APTT 25 SECONDS (21-34) 11/24/15 14:10 - Constitutional Appears: No Acute Distress, Chronically Ill - Eye Exam Eye Exam: Normal appearance - ENT Exam ENT Exam: Mucous Membranes Dry - Respiratory Exam Respiratory Exam: Clear to Ausculation Bilateral - Cardiovascular Exam Cardiovascular Exam: REGULAR RHYTHM - GI/Abdominal Exam GI & Abdominal Exam: Distended, Soft, Hypoactive Bowel Sounds - Extremities Exam Extremities Exam: absent: Pedal Edema - Neurological Exam Neurological Exam: Altered - Skin Skin Exam: Dry, Intact Assessment and Plan - Assessment and Plan (Free Text) Assessment: (1) Abdominal Distension 07/02 Some resolution of distension 07/01 - starting Lactulose QID until BM 06/30 - Abd x-ray: Fecal impaction present. Consider disimpaction vs. Miralax vs Senna. Start Miralax qHS and Senna q72hrs for suspected constipation. 06/27 bladder scan <15cc urine 06/28 abd u/s findings consistent with fatty hepatic infiltrtaion. There are 2 hepatic calcification nonspecific; r/o prior exposure to a granulomatous disease [pls see full report] 700cc UO 3-11pm baker in place Continue Ditropan 5mg via PEG TID 2) Anoxic encephalopathy Assessment & Plan: 07/02: no acute changes: continue with q2h turning, therapy, feeds through PEG site and suctioning trach routinely continue to monitor weekly labs Pending placement (3) Respiratory failure Assessment & Plan: 07/02: Continue trach care and suctioning as needed. Monitor (4) UTI (lower urinary tract infection) Assessment & Plan: Resolved Baker catheter in place Continue Ditropan 5mg via PEG TID Monitor (5) CAD (coronary artery disease) Assessment & Plan: s/p cardiac stents on 06/13/15 Continue ASA 81mg via PEG daily Continue Plavix 75mg via PEG daily (6) Seizures Assessment & Plan: Continue Dilantin 100mg via PEG TID Continue seizure precautions Monitor (7) Bed sore Assessment & Plan: Resolved Continue wound care Prevalon boots in place to avoid heel ulcer development Continue to turn patient q2hrs Monitor with skin checks (8) Oral Thrush Assessment & Plan: Resolved Completed 7 day course of diflucan on 06/26/16 (8) Prophylactic measure Assessment & Plan: Lovenox 40mg SC daily Pepcid 20mg via PEG BID <Nathaniel Beth - Last Filed: 07/04/16 07:54> Objective - Vital Signs/Intake and Output Vital Signs (last 24 hours): Temp Pulse Resp BP Pulse Ox 98.7 F 104 H 20 160/81 H 97 07/04/16 05:28 07/04/16 04:15 07/04/16 04:15 07/04/16 04:15 07/04/16 04:15 Intake and Output: 07/04/16 07/04/16 06:59 18:59 Intake Total 900 Output Total 1050 Balance -150 - Medications Medications: Current Medications Aspirin (Aspirin Chewable) 81 mg PEG DAILY [facility] Last Admin: 07/03/16 10:00 Dose: Not Given Clopidogrel Bisulfate (Plavix) 75 mg PEG DAILY [facility] Last Admin: 07/03/16 10:00 Dose: Not Given Piperacillin Sod/Tazobactam (Sod 3.375 gm/ Sodium Chloride) 100 mls @ 200 mls/ hr IVPB Q6H [facility] Last Admin: 07/04/16 05:30 Dose: 200 mls/hr Dextrose/Sodium Chloride (Dextrose 5%/0.9% Ns 1000 Ml) 1,000 mls @ 50 mls/hr IV .Q20H [facility] Last Admin: 07/03/16 18:00 Dose: 50 mls/hr Mupirocin (Bactroban Ointment) 0 gm TOP DAILY [facility] Last Admin: 07/03/16 10:00 Dose: 1 applic Oxybutynin Chloride (Ditropan Tab) 5 mg PEG TID [facility] Last Admin: 07/03/16 18:00 Dose: Not Given Pantoprazole Sodium (Protonix Inj) 40 mg IVP DAILY [facility] Last Admin: 07/03/16 10:59 Dose: 40 mg Phenytoin (Dilantin) 100 mg PEG TID [facility] Last Admin: 07/03/16 18:00 Dose: Not Given - Labs Labs: 07/03/16 08:41 07/03/16 08:41 PT 10.6 SECONDS (9.7-12.2) 01/02/16 14:10 INR 1.0 11/24/15 14:10 APTT 25 SECONDS (21-34) 11/24/15 14:10 Attending/Attestation - Attestation I have personally seen and examined this patient.: Yes I have fully participated in the care of the patient.: Yes I have reviewed all pertinent clinical information, including history, physical exam and plan: Yes Notes (Text): Patient seen and examined; I agree with the resident's assessment and plan as above.
--- NOTE | 2016-07-02 18:20 | CP.PCM.PN ---
<Imani Ramon - Last Filed: 07/02/16 19:25> Subjective - Date & Time of Evaluation Date of Evaluation: 07/02/16 Time of Evaluation: 18:10 - Subjective Subjective: RAPID RESPONSE NOTE House doctor was paged and went down immediately. Patient was noticed to be spitting up feeds through his trach tube. Patient vitals were BP 107/58 HR 112 RR 28 O2 92% T 99.2F Patient was given 1 dose of lasix 40mg IVP. Feeds were stopped and patient had CXR and flat plate Abdominal x-ray. STAT CBC and CMP were ordered Patient was suctioned and had 400cc of peg feeds drained after which patient seemed to be in NAD and at baseline. Repeat vitals were BP 125/84 HR 106 RR 28 O2 93% Daughter was notified at following telephone number Objective - Vital Signs/Intake and Output Vital Signs (last 24 hours): Temp Pulse Resp BP Pulse Ox 99.0 F 89 20 133/94 H 97 07/02/16 16:00 07/02/16 16:00 07/02/16 16:00 07/02/16 16:00 07/02/16 16:00 Intake and Output: 07/02/16 07/02/16 06:59 18:59 Intake Total 1200 700 Output Total 1300 480 Balance -100 220 - Medications Medications: Current Medications Aspirin (Aspirin Chewable) 81 mg PEG DAILY [facility] Last Admin: 07/02/16 09:08 Dose: 81 mg Clopidogrel Bisulfate (Plavix) 75 mg PEG DAILY [facility] Last Admin: 07/02/16 09:10 Dose: 75 mg Enoxaparin Sodium (Lovenox) 40 mg SC DAILY [facility] Last Admin: 07/02/16 09:10 Dose: 40 mg Famotidine (Pepcid) 20 mg PEG DAILY [facility] Last Admin: 07/02/16 09:10 Dose: 20 mg Furosemide (Lasix) 40 mg IVP STAT STA Stop: 07/02/16 18:18 Lactulose (Enulose) 20 gm PO QID [facility] Last Admin: 07/02/16 17:47 Dose: 20 gm Mupirocin (Bactroban Ointment) 0 gm TOP DAILY [facility] Last Admin: 07/02/16 09:08 Dose: 1 applic Oxybutynin Chloride (Ditropan Tab) 5 mg PEG TID [facility] Last Admin: 07/02/16 17:45 Dose: 5 mg Phenytoin (Dilantin) 100 mg PEG TID [facility] Last Admin: 07/02/16 17:45 Dose: 100 mg Polyethylene Glycol (Miralax) 17 gm PEG HS [facility] Last Admin: 07/01/16 21:31 Dose: 17 gm Sennosides (Senokot Tab) 8.6 mg PO Q72 [facility] - Labs Labs: 06/30/16 07:47 07/02/16 08:04 PT 10.6 SECONDS (9.7-12.2) 11/24/15 14:10 INR 1.0 11/24/15 14:10 APTT 25 SECONDS (21-34) 11/24/15 14:10 <Nathaniel Beth - Last Filed: 07/04/16 11:22> Objective - Vital Signs/Intake and Output Vital Signs (last 24 hours): Temp Pulse Resp BP Pulse Ox 98.5 F 104 H 20 153/80 H 99 07/04/16 08:00 07/04/16 08:00 07/04/16 08:00 07/04/16 08:00 07/04/16 08:00 Intake and Output: 07/04/16 07/04/16 06:59 18:59 Intake Total 900 Output Total 1050 Balance -150 - Medications Medications: Current Medications Aspirin (Aspirin Chewable) 81 mg PEG DAILY [facility] Last Admin: 07/04/16 10:53 Dose: 81 mg Clopidogrel Bisulfate (Plavix) 75 mg PEG DAILY [facility] Last Admin: 07/04/16 10:53 Dose: 75 mg Piperacillin Sod/Tazobactam (Sod 3.375 gm/ Sodium Chloride) 100 mls @ 200 mls/ hr IVPB Q6H [facility] Last Admin: 07/04/16 05:30 Dose: 200 mls/hr Dextrose/Sodium Chloride (Dextrose 5%/0.9% Ns 1000 Ml) 1,000 mls @ 50 mls/hr IV .Q20H [facility] Last Admin: 07/03/16 18:00 Dose: 50 mls/hr Mupirocin (Bactroban Ointment) 0 gm TOP DAILY [facility] Last Admin: 07/03/16 10:00 Dose: 1 applic Oxybutynin Chloride (Ditropan Tab) 5 mg PEG TID [facility] Last Admin: 07/04/16 10:53 Dose: 5 mg Pantoprazole Sodium (Protonix Inj) 40 mg IVP DAILY [facility] Last Admin: 07/04/16 10:51 Dose: 40 mg Phenytoin (Dilantin) 100 mg PEG TID [facility] Last Admin: 07/04/16 10:53 Dose: 100 mg - Labs Labs: 07/03/16 08:41 07/03/16 08:41 PT 10.6 SECONDS (9.7-12.2) 11/24/15 14:10 INR 1.0 11/24/15 14:10 APTT 25 SECONDS (21-34) 11/24/15 14:10 Attending/Attestation - Attestation I have personally seen and examined this patient.: Yes I have fully participated in the care of the patient.: Yes I have reviewed all pertinent clinical information, including history, physical exam and plan: Yes Notes (Text): Patient seen and examined at time of rapid response; he had very high residual tube feed volume coming out of PEG tube once unclamped and is the likely cause of the situation; will assess for intestinal parital obstruction;
[2016-07-02 18:36] LABS: HEMOGLOBIN 13.7 g/dL (12.0-18.0); MEAN CORPUSCULAR HEMOGLOBIN 29.2 pg (27.0-31.0); MEAN CORPUSCULAR HGB CONC 32.1 g/dL (33.0-37.0); MEAN PLATELET VOLUME 8.5 fL (7.2-11.7); RBC 4.69 Mil/uL (4.40-5.90); RED CELL DISTRIBUTION WIDTH 14.3 % (11.5-14.5); WHITE BLOOD COUNT 14.1 K/uL (4.8-10.8)
[2016-07-02 18:45] LABS: ALB/GLOB RATIO 0.9 (1.0-2.1); AST/SGOT 33 U/L (17-59); BLOOD UREA NITROGEN 18 mg/dL (9-20); GFR NON-AFRICAN AMERICAN > 60
[2016-07-02 18:46] LABS: ALT/SGPT 53 U/L (21-72)
[2016-07-02 22:33] LABS: ABG ALLEN TEST POS; ARTERIAL BLOOD GAS HCO3 22.6 mmol/L (21-28); ARTERIAL BLOOD GAS LACTATE 7.9 mmol/L (0.7-2.1); ARTERIAL BLOOD GAS O2 SAT 93.5 % (95-98); ARTERIAL BLOOD GAS PCO2 37 mm/Hg (35-45); ARTERIAL BLOOD GAS PH 7.38 (7.35-7.45); ARTERIAL BLOOD GAS PO2 62 mm/Hg (80-100)
--- NOTE | 2016-07-02 22:39 | CP.PCM.PN ---
<Alex Coyle - Last Filed: 07/03/16 03:07> Subjective - Date & Time of Evaluation Date of Evaluation: 07/02/16 Time of Evaluation: 22:01 - Subjective Subjective: BIOMEDICAL REPAIR TECHNICIAN Note Rapid response was called at 10:01 PM for patient after witnessed increased work of breathing. This is the second BIOMEDICAL REPAIR TECHNICIAN that was called today. Patient's initial vitals were as noted: HR-166, BP-130/88, Respirations-28, and O2 saturation of 90%. Oxygen was administered via bagging, and patient's saturation improved from 90% to 96%. Patient received a duoneb treatment as well. Xray was ordered and compared to previous xray imaging taken at 6:17PM. Repeat vitals were taken at 10:25PM as noted: HR- 143, BP- 130/80, Respirations- 25, and O2 saturation of 94%. Patient felt extremely warm to touch and rectal temperature was noted to be 103.8F. Urine, Sputum (trach) and Blood cultures were ordered. IVF, Zosyn and Flagyl was administered, rectal acetaminophen administered, and toradol given. VBG as noted: PCO2 37, PO2 62, HCO3 22.6, pH 7.38, ABG Total CO2 23, ABG O2 Saturation 93.5, ABG Base Excess -2.8, ABG Potasium 4.5, Lactate 7.9 [facility] alert called 10:45PM. Patient's breathing was improved following treatment. Dr. Kaplan (Critical Care) evaluated as well and did not find indications for ICU at this moment. Rather, patient will require transfer to a telemetry floor. Ventilatory support may be additionally required pending repeat ABG results at 2 :30 AM. Daughter present and informed. Will continue to monitor. Alex Coyle, PGY-1 Objective - Vital Signs/Intake and Output Vital Signs (last 24 hours): Temp Pulse Resp BP Pulse Ox 99.0 F 89 20 133/94 H 97 07/02/16 16:00 07/02/16 20:16 07/02/16 16:00 07/02/16 16:00 07/02/16 16:00 Intake and Output: 07/02/16 07/03/16 18:59 06:59 Intake Total 700 Output Total 480 Balance 220 - Medications Medications: Current Medications Acetaminophen (Tylenol 650 Mg Supp) 650 mg NC ONCE ONE Stop: 07/02/16 22:46 Aspirin (Aspirin Chewable) 81 mg PEG DAILY [facility] Last Admin: 07/02/16 09:08 Dose: 81 mg Clopidogrel Bisulfate (Plavix) 75 mg PEG DAILY [facility] Last Admin: 07/02/16 09:10 Dose: 75 mg Enoxaparin Sodium (Lovenox) 40 mg SC DAILY [facility] Last Admin: 07/02/16 09:10 Dose: 40 mg Famotidine (Pepcid) 20 mg PEG DAILY [facility] Last Admin: 07/02/16 09:10 Dose: 20 mg Mupirocin (Bactroban Ointment) 0 gm TOP DAILY [facility] Last Admin: 07/02/16 09:08 Dose: 1 applic Oxybutynin Chloride (Ditropan Tab) 5 mg PEG TID [facility] Last Admin: 07/02/16 17:45 Dose: 5 mg Phenytoin (Dilantin) 100 mg PEG TID [facility] Last Admin: 07/02/16 17:45 Dose: 100 mg Polyethylene Glycol (Miralax) 17 gm PEG HS [facility] Last Admin: 07/01/16 21:31 Dose: 17 gm Sennosides (Senokot Tab) 8.6 mg PO Q72 [facility] - Labs Labs: 07/02/16 18:32 07/02/16 18:32 PT 10.6 SECONDS (9.7-12.2) 11/24/15 14:10 INR 1.0 11/24/15 14:10 APTT 25 SECONDS (21-34) 11/24/15 14:10 <Nacho Quintero P - Last Filed: 07/03/16 08:25> Objective - Vital Signs/Intake and Output Vital Signs (last 24 hours): Temp Pulse Resp BP Pulse Ox 99.3 F 84 20 145/90 95 07/03/16 07:52 07/03/16 07:52 07/03/16 07:52 07/03/16 07:52 07/03/16 07:52 Intake and Output: 07/03/16 07/03/16 06:59 18:59 Output Total 1000 Balance -1000 - Medications Medications: Current Medications Aspirin (Aspirin Chewable) 81 mg PEG DAILY [facility] Last Admin: 07/02/16 09:08 Dose: 81 mg Clopidogrel Bisulfate (Plavix) 75 mg PEG DAILY [facility] Last Admin: 07/02/16 09:10 Dose: 75 mg Enoxaparin Sodium (Lovenox) 40 mg SC DAILY [facility] Last Admin: 07/02/16 09:10 Dose: 40 mg Famotidine (Pepcid) 20 mg PEG DAILY [facility] Last Admin: 07/02/16 09:10 Dose: 20 mg Piperacillin Sod/Tazobactam (Sod 3.375 gm/ Sodium Chloride) 100 mls @ 200 mls/ hr IVPB Q6H [facility] Last Admin: 07/03/16 05:04 Dose: 200 mls/hr Sodium Chloride (Sodium Chloride 0.9%) 1,000 mls @ 150 mls/hr IV .Q6H40M [facility] Last Admin: 07/03/16 05:40 Dose: Not Given Vancomycin/Sodium Chloride (Vancocin) 200 mls @ 166.6 mls/hr IVPB Q12H [facility] Last Admin: 07/03/16 00:15 Dose: 166.6 mls/hr Mupirocin (Bactroban Ointment) 0 gm TOP DAILY [facility] Last Admin: 07/02/16 09:08 Dose: 1 applic Oxybutynin Chloride (Ditropan Tab) 5 mg PEG TID [facility] Last Admin: 07/02/16 17:45 Dose: 5 mg Pantoprazole Sodium (Protonix Inj) 40 mg IVP DAILY [facility] Phenytoin (Dilantin) 100 mg PEG TID [facility] Last Admin: 07/02/16 17:45 Dose: 100 mg Polyethylene Glycol (Miralax) 17 gm PEG HS [facility] Last Admin: 07/02/16 22:41 Dose: Not Given Sennosides (Senokot Tab) 8.6 mg PO Q72 [facility] - Labs Labs: 07/02/16 18:32 07/02/16 18:32 PT 10.6 SECONDS (9.7-12.2) 11/24/15 14:10 INR 1.0 11/24/15 14:10 APTT 25 SECONDS (21-34) 11/24/15 14:10 Attending/Attestation - Attestation I have personally seen and examined this patient.: Yes I have fully participated in the care of the patient.: Yes I have reviewed all pertinent clinical information, including history, physical exam and plan: Yes Notes (Text): 07/03/16 08:20 Septic probable source is aspiration PNA, elevated lactic acid on repeat blood gas, maintained BP probably form increased metabolism continued with hyperthermia/fever. Patient started on vanco/zosyn, ivf, ppi,transferred to [facility] , vent can be started as needed, maintaining BP, does not need pressor support. Labs including lactate will be repeated if elevated despite fever or persistent will need CT chest/abd/pelvis/upper legs to look for PNA, bowel, decubit as source. D/w the day team/patient's nurse.
[2016-07-02] MEDS: POLYETHYLENE GLYCOL 3350 17 GM/Dose PACKET PEG SCH (22:41)
--- NOTE | 2016-07-02 22:57 | PCM.SEPTIC ---
<Alex Coyle - Last Filed: 07/03/16 02:35> Sepsis Progress Note - Reassessment Type Date of Evaluation: 07/02/16 Time of Evaluation: 10:35 Reassessment Type: Non-invasive reassessment - Non Invasive Reassessment Were the most recent vital sign reviewed: Yes Vital Sign (Latest): Temp Pulse Resp BP Pulse Ox 103.8 F H 89 20 133/94 H 97 07/02/16 22:39 07/02/16 20:16 07/02/16 16:00 07/02/16 16:00 07/02/16 16:00 Cardiovascular: Yes: Tachycardia Respiratory: Yes: Accessory Muscle Use Capillary Refill: Normal (Less than 2 sec) Pulses: Normal Radial, Normal Dorsalis Pedis, Normal Posterior Tibialis Skin: Warm, Dry <Nacho Quintero - Last Filed: 07/04/16 07:17> Sepsis Progress Note - Non Invasive Reassessment Vital Sign (Latest): Temp Pulse Resp BP Pulse Ox 98.7 F 104 H 20 160/81 H 97 07/04/16 05:28 07/04/16 04:15 07/04/16 04:15 07/04/16 04:15 07/04/16 04:15 Attending/Attestation - Attestation I have personally seen and examined this patient.: Yes I have fully participated in the care of the patient.: Yes I have reviewed all pertinent clinical information, including history, physical exam and plan: Yes
[2016-07-02] MEDS: Sodium Chloride 0.9% 1,000 ML IV SCH (23:00)
[2016-07-02] MEDS: Piperacillin/Tazobact 3.375 GM in Sodium Chloride 100 ML IVPB SCH (23:15)
[2016-07-02 23:52] LABS: URINE BACTERIA MANY (<OCC); URINE BILIRUBIN NEGATIVE (NEGATIVE); URINE BLOOD 2+ (NEGATIVE); URINE CLARITY Hazy (Clear); URINE COLOR Amber (YELLOW); URINE GLUCOSE (UA) NORMAL (Normal); URINE LEUKOCYTE ESTERASE 3+ Leu/uL (Negative)
[2016-07-02 23:53] LABS: URINE PROTEIN 3+ mg/dL (NEGATIVE)
[2016-07-03] MEDS: Vancomycin 1 gm/NS 200 ml 200 ML IVPB SCH ×2 (00:15→12:15)
--- NOTE | 2016-07-03 02:35 | PCM.SEPTIC ---
<Alex Coyle - Last Filed: 07/03/16 03:06> Sepsis Progress Note - Reassessment Type Date of Evaluation: 07/03/16 Time of Evaluation: 02:35 Reassessment Type: Non-invasive reassessment - Non Invasive Reassessment Were the most recent vital sign reviewed: Yes Vital Sign (Latest): Temp Pulse Resp BP Pulse Ox 103.8 F H 89 20 133/94 H 97 07/02/16 22:39 07/02/16 20:16 07/02/16 16:00 07/02/16 16:00 07/02/16 16:00 Cardiovascular: Yes: Regular Rate, Rhythm Respiratory: Yes: Accessory Muscle Use. No: Respiratory Distress Capillary Refill: Normal (Less than 2 sec) Pulses: Normal Radial, Normal Dorsalis Pedis, Normal Posterior Tibialis Skin: Warm, Dry Was a passive leg raise performed or was a fluid challenge performed within 6 hrs of the initial fluid bolus: No Passive Leg Raise Result: Not Applicable Fluid Challenge performed: No <Nacho Quintero - Last Filed: 07/04/16 07:18> Sepsis Progress Note - Non Invasive Reassessment Vital Sign (Latest): Temp Pulse Resp BP Pulse Ox 98.7 F 104 H 20 160/81 H 97 07/04/16 05:28 07/04/16 04:15 07/04/16 04:15 07/04/16 04:15 07/04/16 04:15
[2016-07-03 02:56] LABS: ABG ALLEN TEST POS; ARTERIAL BLOOD GAS HCO3 22.3 mmol/L (21-28); ARTERIAL BLOOD GAS O2 SAT 99.4 % (95-98); ARTERIAL BLOOD GAS PCO2 32 mm/Hg (35-45); ARTERIAL BLOOD GAS PH 7.41 (7.35-7.45); ARTERIAL BLOOD GAS PO2 99 mm/Hg (80-100); ARTERIAL BLOOD GAS TCO2 21.3 mmol/L (22-28)
[2016-07-03 03:31] LABS: VENOUS BLOOD GAS BASE EXCESS -1.5 mmol/L (0.0-2.0); VENOUS BLOOD GAS PCO2 44 mmHg (40-60); VENOUS BLOOD GAS PO2 34 mm/Hg (30-55); VENOUS BLOOD PH 7.35 (7.32-7.43)
[2016-07-03] MEDS: Piperacillin/Tazobact 3.375 GM in Sodium Chloride 100 ML IVPB SCH ×4 (05:04→22:41)
[2016-07-03] MEDS: Sodium Chloride 0.9% 1,000 ML IV SCH ×3 (05:40→12:30)
[2016-07-03 08:49] LABS: BASO # 0.1 K/uL (0.0-0.2); BASO % 0.4 % (0.0-2.0); EOS # 0.4 K/uL (0.0-0.7); EOS % 1.9 % (0.0-4.0); HEMOGLOBIN 12.3 g/dL (12.0-18.0); LYMPH # 1.8 K/uL (1.0-4.3); MEAN CELL VOLUME 91.4 fL (80.0-94.0); MEAN CORPUSCULAR HGB CONC 32.8 g/dL (33.0-37.0); MEAN PLATELET VOLUME 8.3 fL (7.2-11.7); MONO # 1.5 K/uL (0.0-0.8); MONO % 8.2 % (0.0-10.0); NEUT # 14.8 K/uL (1.8-7.0); NEUT % 79.5 % (50.0-75.0); RBC 4.11 Mil/uL (4.40-5.90); RED CELL DISTRIBUTION WIDTH 14.9 % (11.5-14.5); WHITE BLOOD COUNT 18.6 K/uL (4.8-10.8)
[2016-07-03 09:00] LABS: ALBUMIN 3.3 g/dL (3.5-5.0)
[2016-07-03 09:03] LABS: ALB/GLOB RATIO 0.8 (1.0-2.1); AST/SGOT 34 U/L (17-59); BLOOD UREA NITROGEN 24 mg/dL (9-20); GFR NON-AFRICAN AMERICAN > 60
[2016-07-03 09:04] LABS: ALT/SGPT 46 U/L (21-72)
[2016-07-03 09:27] LABS: ABG ALLEN TEST POS; ARTERIAL BLOOD GAS HCO3 27.8 mmol/L (21-28); ARTERIAL BLOOD GAS LACTATE 2.2 mmol/L (0.7-2.1); ARTERIAL BLOOD GAS O2 SAT 98.7 % (95-98); ARTERIAL BLOOD GAS PCO2 39 mm/Hg (35-45); ARTERIAL BLOOD GAS PH 7.46 (7.35-7.45); ARTERIAL BLOOD GAS PO2 88 mm/Hg (80-100); ARTERIAL BLOOD GAS TCO2 28.9 mmol/L (22-28)
[2016-07-03] MEDS: Enoxaparin 40 mg Syringe SC SCH (10:00)
[2016-07-03] MEDS: Phenytoin 100 mg/4 ml Oral Susp UD PEG SCH ×3 (10:00→18:00)
--- NOTE | 2016-07-03 10:43 | RAD ---
HISTORY: Increased work of breathing COMPARISON: Multiple priors FINDINGS: LUNGS: Atelectasis is present at the lung bases. There is a tracheostomy tube. PLEURA: No significant pleural effusion identified, no pneumothorax apparent. CARDIOVASCULAR: Normal. OSSEOUS STRUCTURES: No significant abnormalities. VISUALIZED UPPER ABDOMEN: Normal. OTHER FINDINGS: None. IMPRESSION: Atelectasis.
--- NOTE | 2016-07-03 10:58 | RAD ---
HISTORY: retention and spitting of feeds COMPARISON: No prior. FINDINGS: There is gaseous distention of the bowel. There is a a large amount of stool in the area of the rectum. IMPRESSION: Gaseous distention of the bowel of findings suggestive of fecal impaction.
--- NOTE | 2016-07-03 11:00 | RAD ---
HISTORY: feeds coming out of trach tube COMPARISON: Multiple priors FINDINGS: LUNGS: No active pulmonary disease. The patient's tracheostomy tube is seen in the midline. PLEURA: No significant pleural effusion identified, no pneumothorax apparent. CARDIOVASCULAR: Normal. OSSEOUS STRUCTURES: No significant abnormalities. VISUALIZED UPPER ABDOMEN: There is gaseous distention of the bowel in the upper abdomen. OTHER FINDINGS: None. IMPRESSION: No active disease.
--- NOTE | 2016-07-03 11:03 | CP.PCM.PN ---
<NoeGeoffrey - Last Filed: 07/03/16 18:34> Subjective - Date & Time of Evaluation Date of Evaluation: 07/03/16 Time of Evaluation: 07:40 - Subjective Subjective: PGY1 Medicine Note. Dr. Beth Service. PT seen and examined at bedside. Pt started having increased secretions through his trach yesterday. Currently patient is laying in bed, not in any acute distress. Objective - Vital Signs/Intake and Output Vital Signs (last 24 hours): Temp Pulse Resp BP Pulse Ox 99.3 F 84 20 145/90 95 07/03/16 07:52 07/03/16 07:52 07/03/16 07:52 07/03/16 07:52 07/03/16 07:52 Intake and Output: 07/03/16 07/03/16 06:59 18:59 Output Total 1000 Balance -1000 - Medications Medications: Current Medications Aspirin (Aspirin Chewable) 81 mg PEG DAILY [facility] Last Admin: 07/02/16 09:08 Dose: 81 mg Clopidogrel Bisulfate (Plavix) 75 mg PEG DAILY [facility] Last Admin: 07/02/16 09:10 Dose: 75 mg Famotidine (Pepcid) 20 mg PEG DAILY [facility] Last Admin: 07/02/16 09:10 Dose: 20 mg Piperacillin Sod/Tazobactam (Sod 3.375 gm/ Sodium Chloride) 100 mls @ 200 mls/ hr IVPB Q6H [facility] Last Admin: 07/03/16 05:04 Dose: 200 mls/hr Sodium Chloride (Sodium Chloride 0.9%) 1,000 mls @ 150 mls/hr IV .Q6H40M [facility] Last Admin: 07/03/16 10:54 Dose: 150 mls/hr Vancomycin/Sodium Chloride (Vancocin) 200 mls @ 166.6 mls/hr IVPB Q12H [facility] Last Admin: 07/03/16 00:15 Dose: 166.6 mls/hr Mupirocin (Bactroban Ointment) 0 gm TOP DAILY [facility] Last Admin: 07/02/16 09:08 Dose: 1 applic Oxybutynin Chloride (Ditropan Tab) 5 mg PEG TID [facility] Last Admin: 07/02/16 17:45 Dose: 5 mg Pantoprazole Sodium (Protonix Inj) 40 mg IVP DAILY [facility] Phenytoin (Dilantin) 100 mg PEG TID [facility] Last Admin: 07/02/16 17:45 Dose: 100 mg Polyethylene Glycol (Miralax) 17 gm PEG HS [facility] Last Admin: 07/02/16 22:41 Dose: Not Given Sennosides (Senokot Tab) 8.6 mg PO Q72 [facility] - Labs Labs: 07/03/16 08:41 07/03/16 08:41 PT 10.6 SECONDS (9.7-12.2) 11/24/15 14:10 INR 1.0 11/24/15 14:10 APTT 25 SECONDS (21-34) 11/24/15 14:10 - Constitutional Appears: Well, No Acute Distress - Head Exam Head Exam: ATRAUMATIC, NORMAL INSPECTION, NORMOCEPHALIC - Respiratory Exam Respiratory Exam: Clear to Ausculation Bilateral - Cardiovascular Exam Cardiovascular Exam: +S1, +S2. absent: Murmur - GI/Abdominal Exam GI & Abdominal Exam: Distended. absent: Guarding, Rigid - Extremities Exam Extremities Exam: Normal Inspection - Neurological Exam Additional comments: PT on trach collar, he is responsive to painful stimuli. Assessment and Plan - Assessment and Plan (Free Text) Assessment: (1) Abdominal Distension 07/03 - Tube feeds were stopped and suction started due possibility of partial obstruction. 07/02 Abd xray - fecal impaction, will order another abdominal x- ray. f/u results. Stopped Miralax, Stopped Senna, stopped pepcid. Maintenance fluid: D5/NS @50cc/hr 07/02 Some resolution of distension 07/01 - starting Lactulose QID until BM 06/30 - Abd x-ray: Fecal impaction present. Consider disimpaction vs. Miralax vs Senna. Start Miralax qHS and Senna q72hrs for suspected constipation. 06/27 bladder scan <15cc urine 06/28 abd u/s findings consistent with fatty hepatic infiltrtaion. There are 2 hepatic calcification nonspecific; r/o prior exposure to a granulomatous disease [pls see full report] baker in place Continue Ditropan 5mg via PEG TID 2) Anoxic encephalopathy Assessment & Plan: 07/02: no acute changes: continue with q2h turning, therapy, feeds through PEG site and suctioning trach routinely continue to monitor weekly labs Pending placement (3) Respiratory failure Assessment & Plan: 07/02 - CXR shows atelectasis. 07/02: Continue trach care and suctioning as needed. Monitor (4) UTI (lower urinary tract infection) Assessment & Plan: Resolved Baker catheter in place Continue Ditropan 5mg via PEG TID Monitor (5) CAD (coronary artery disease) Assessment & Plan: s/p cardiac stents on 06/13/15 Continue ASA 81mg via PEG daily Continue Plavix 75mg via PEG daily (6) Seizures Assessment & Plan: Continue Dilantin 100mg via PEG TID Continue seizure precautions Monitor (7) Bed sore Assessment & Plan: Resolved Continue wound care Prevalon boots in place to avoid heel ulcer development Continue to turn patient q2hrs Monitor with skin checks (8) Oral Thrush Assessment & Plan: Resolved Completed 7 day course of diflucan on 06/26/16 (8) Prophylactic measure Assessment & Plan: Lovenox 40mg SC daily Pepcid 20mg via PEG BID <Nathaniel Beth - Last Filed: 07/04/16 07:53> Objective - Vital Signs/Intake and Output Vital Signs (last 24 hours): Temp Pulse Resp BP Pulse Ox 98.7 F 104 H 20 160/81 H 97 07/04/16 05:28 07/04/16 04:15 07/04/16 04:15 07/04/16 04:15 07/04/16 04:15 Intake and Output: 07/04/16 07/04/16 06:59 18:59 Intake Total 900 Output Total 1050 Balance -150 - Medications Medications: Current Medications Aspirin (Aspirin Chewable) 81 mg PEG DAILY [facility] Last Admin: 07/03/16 10:00 Dose: Not Given Clopidogrel Bisulfate (Plavix) 75 mg PEG DAILY [facility] Last Admin: 07/03/16 10:00 Dose: Not Given Piperacillin Sod/Tazobactam (Sod 3.375 gm/ Sodium Chloride) 100 mls @ 200 mls/ hr IVPB Q6H [facility] Last Admin: 07/04/16 05:30 Dose: 200 mls/hr Dextrose/Sodium Chloride (Dextrose 5%/0.9% Ns 1000 Ml) 1,000 mls @ 50 mls/hr IV .Q20H [facility] Last Admin: 07/03/16 18:00 Dose: 50 mls/hr Mupirocin (Bactroban Ointment) 0 gm TOP DAILY [facility] Last Admin: 07/03/16 10:00 Dose: 1 applic Oxybutynin Chloride (Ditropan Tab) 5 mg PEG TID [facility] Last Admin: 07/03/16 18:00 Dose: Not Given Pantoprazole Sodium (Protonix Inj) 40 mg IVP DAILY [facility] Last Admin: 07/03/16 10:59 Dose: 40 mg Phenytoin (Dilantin) 100 mg PEG TID [facility] Last Admin: 07/03/16 18:00 Dose: Not Given - Labs Labs: 07/03/16 08:41 07/03/16 08:41 PT 10.6 SECONDS (9.7-12.2) 11/24/15 14:10 INR 1.0 11/24/15 14:10 APTT 25 SECONDS (21-34) 11/24/15 14:10 Attending/Attestation - Attestation I have personally seen and examined this patient.: Yes I have fully participated in the care of the patient.: Yes I have reviewed all pertinent clinical information, including history, physical exam and plan: Yes Notes (Text): Patient seen and examined; I agree with the resident's assessment and plan as above with the following additions: Rapid response was called yesterday evening after patient was found to have tube feed coming out from tracheostomy; when PEG tube clamp opened, tube feed came rushing out (~400 cc); previously, patient had been constipated so we put him on lactulose q4h with resulting frequent and loose BM. Concern now remains for partial obstruction; has normal BS on exam but abd still distended; xray findings are not very specific; if abdomen remains distended tomorrow, we will get CT with PO contrast. Patient is being covered with broad spectrum abx for aspiration pneumonitis; fevers are resolving as is high lactate level (likely due to shivering, no hypotension seen). 07/04/16 07:48
--- NOTE | 2016-07-03 16:39 | RAD ---
HISTORY: r/o obstruction. COMPARISON: Multiple priors FINDINGS: There is gaseous distention of the stomach. High density material seen in the level of the bladder which may represent contrast from prior study. There is gaseous distention of the sigmoid colon. IMPRESSION: Nonspecific bowel gas pattern. Further evaluation with a CT scan is recommended.
[2016-07-03] MEDS: Dextrose 5%/0.9% NS 1,000 ML IV SCH (18:00)
[2016-07-04] MEDS: Piperacillin/Tazobact 3.375 GM in Sodium Chloride 100 ML IVPB SCH ×4 (05:30→22:22)
--- NOTE | 2016-07-04 09:28 | CP.PCM.PN ---
<Geoffrey Liu - Last Filed: 07/04/16 21:56> Subjective - Date & Time of Evaluation Date of Evaluation: 07/04/16 Time of Evaluation: 07:30 - Subjective Subjective: PGY1 Medicine note. Dr. eBth service. PT seen and examined at bedside. PT resting. PT has not received any tube feeds. PT received meds through PEG tube, suction clamped for 30mins, then restarted. Minimal gastric output. No fever overnight. Objective - Vital Signs/Intake and Output Vital Signs (last 24 hours): Temp Pulse Resp BP Pulse Ox 98.5 F 104 H 20 153/80 H 99 07/04/16 08:00 07/04/16 08:00 07/04/16 08:00 07/04/16 08:00 07/04/16 08:00 Intake and Output: 07/04/16 07/04/16 06:59 18:59 Intake Total 900 Output Total 1050 Balance -150 - Medications Medications: Current Medications Aspirin (Aspirin Chewable) 81 mg PEG DAILY [facility] Last Admin: 07/03/16 10:00 Dose: Not Given Clopidogrel Bisulfate (Plavix) 75 mg PEG DAILY [facility] Last Admin: 07/03/16 10:00 Dose: Not Given Piperacillin Sod/Tazobactam (Sod 3.375 gm/ Sodium Chloride) 100 mls @ 200 mls/ hr IVPB Q6H [facility] Last Admin: 07/04/16 05:30 Dose: 200 mls/hr Dextrose/Sodium Chloride (Dextrose 5%/0.9% Ns 1000 Ml) 1,000 mls @ 50 mls/hr IV .Q20H [facility] Last Admin: 07/03/16 18:00 Dose: 50 mls/hr Mupirocin (Bactroban Ointment) 0 gm TOP DAILY [facility] Last Admin: 07/03/16 10:00 Dose: 1 applic Oxybutynin Chloride (Ditropan Tab) 5 mg PEG TID [facility] Last Admin: 07/03/16 18:00 Dose: Not Given Pantoprazole Sodium (Protonix Inj) 40 mg IVP DAILY [facility] Last Admin: 07/03/16 10:59 Dose: 40 mg Phenytoin (Dilantin) 100 mg PEG TID [facility] Last Admin: 07/03/16 18:00 Dose: Not Given - Labs Labs: 07/03/16 08:41 07/03/16 08:41 PT 10.6 SECONDS (9.7-12.2) 11/24/15 14:10 INR 1.0 11/24/15 14:10 APTT 25 SECONDS (21-34) 11/24/15 14:10 - Constitutional Appears: No Acute Distress - Head Exam Head Exam: ATRAUMATIC, NORMAL INSPECTION, NORMOCEPHALIC - Respiratory Exam Additional comments: Decreased breath sounds bilaterally at lung bases. - Cardiovascular Exam Cardiovascular Exam: RRR, +S1, +S2 - GI/Abdominal Exam GI & Abdominal Exam: Soft, Normal Bowel Sounds - Rectal Exam Additional comments: Small 1.5 cm vertical sacral skin tear. no active bleeding - Exam Exam: NORMAL INSPECTION. absent: Bladder Distension - Extremities Exam Extremities Exam: Normal Inspection. absent: Pedal Edema - Neurological Exam Additional comments: PT is responsive to painful stimuli. Assessment and Plan - Assessment and Plan (Free Text) Assessment: (1) Abdominal Distension 07/04 - distention improving. Repeat Abd X-ray inconclusive. 07/03 - Tube feeds were stopped and suction started due possibility of partial obstruction. 07/02 Abd xray - fecal impaction, will order another abdominal x- ray. f/u results. Stopped Miralax, Stopped Senna, stopped pepcid. Maintenance fluid: D5/NS @50cc/hr 07/02 Some resolution of distension 07/01 - starting Lactulose QID until BM 06/30 - Abd x-ray: Fecal impaction present. Consider disimpaction vs. Miralax vs Senna. Start Miralax qHS and Senna q72hrs for suspected constipation. 06/27 bladder scan <15cc urine 06/28 abd u/s findings consistent with fatty hepatic infiltrtaion. There are 2 hepatic calcification nonspecific; r/o prior exposure to a granulomatous disease [pls see full report] baker in place Continue Ditropan 5mg via PEG TID 2) Anoxic encephalopathy Assessment & Plan: 07/02: no acute changes: continue with q2h turning, therapy, feeds through PEG site and suctioning trach routinely continue to monitor weekly labs Pending placement (3) Respiratory failure Assessment & Plan: 07/02 - CXR shows atelectasis. 07/02: Continue trach care and suctioning as needed. Monitor (4) UTI (lower urinary tract infection) Assessment & Plan: Resolved Baker catheter in place Continue Ditropan 5mg via PEG TID Monitor (5) CAD (coronary artery disease) Assessment & Plan: s/p cardiac stents on 06/13/15 Continue ASA 81mg via PEG daily Continue Plavix 75mg via PEG daily (6) Seizures Assessment & Plan: Continue Dilantin 100mg via PEG TID Continue seizure precautions Monitor (7) Bed sore Assessment & Plan: Resolved Continue wound care Prevalon boots in place to avoid heel ulcer development Continue to turn patient q2hrs Monitor with skin checks (8) Oral Thrush Assessment & Plan: Resolved Completed 7 day course of diflucan on 06/26/16 (8) Prophylactic measure Assessment & Plan: Lovenox 40mg SC daily Pepcid 20mg via PEG BID <Nathaniel Beth - Last Filed: 07/06/16 07:28> Objective - Vital Signs/Intake and Output Vital Signs (last 24 hours): Temp Pulse Resp BP Pulse Ox 98.9 F 87 20 146/87 98 07/06/16 01:29 07/06/16 01:29 07/06/16 01:29 07/06/16 01:29 07/06/16 01:29 Intake and Output: 07/06/16 07/06/16 06:59 18:59 Intake Total 500 Output Total 1650 Balance -1150 - Medications Medications: Current Medications Aspirin (Aspirin Chewable) 81 mg PEG DAILY [facility] Last Admin: 07/05/16 10:28 Dose: 81 mg Clopidogrel Bisulfate (Plavix) 75 mg PEG DAILY [facility] Last Admin: 07/05/16 10:28 Dose: 75 mg Dextrose/Sodium Chloride (Dextrose 5%/0.9% Ns 1000 Ml) 1,000 mls @ 50 mls/hr IV .Q20H [facility] Last Admin: 07/05/16 08:10 Dose: Not Given Piperacillin Sod/Tazobactam Sod (Zosyn 3.375 Gm Iv Premix) 50 mls @ 100 mls/hr IVPB Q6H [facility] Mupirocin (Bactroban Ointment) 0 gm TOP DAILY [facility] Last Admin: 07/05/16 10:00 Dose: 1 applic Oxybutynin Chloride (Ditropan Tab) 5 mg PEG TID [facility] Last Admin: 07/05/16 18:49 Dose: 5 mg Pantoprazole Sodium (Protonix Inj) 40 mg IVP DAILY [facility] Last Admin: 07/05/16 10:29 Dose: 40 mg Phenytoin (Dilantin) 100 mg PEG TID [facility] Last Admin: 07/05/16 18:49 Dose: 100 mg - Labs Labs: 07/04/16 11:16 07/04/16 11:16 PT 10.6 SECONDS (9.7-12.2) 11/24/15 14:10 INR 1.0 11/24/15 14:10 APTT 25 SECONDS (21-34) 11/24/15 14:10 Attending/Attestation - Attestation I have personally seen and examined this patient.: Yes I have fully participated in the care of the patient.: Yes I have reviewed all pertinent clinical information, including history, physical exam and plan: Yes Notes (Text): Patient seen and examined; I agree with the resident's assessment and plan as above with the following additions/edits: Patient afebrile after likely aspiration on the night of 07/02; abdomen now soft ; will continue bowel rest and broad spectrum abx (zosyn) for now.
[2016-07-04] MEDS: Phenytoin 100 mg/4 ml Oral Susp UD PEG SCH ×3 (10:53→17:49)
[2016-07-04 11:08] LABS: URINE BACTERIA RARE (<OCC); URINE BILIRUBIN NEGATIVE (NEGATIVE); URINE BLOOD 3+ (NEGATIVE); URINE CLARITY Hazy (Clear); URINE COLOR Yellow (YELLOW); URINE GLUCOSE (UA) NORMAL (Normal); URINE LEUKOCYTE ESTERASE 3+ Leu/uL (Negative); URINE PROTEIN NEGATIVE (NEGATIVE); URINE UROBILINOGEN NORMAL mg/dL (0.2-1.0)
[2016-07-04 11:23] LABS: HEMOGLOBIN 12.3 g/dL (12.0-18.0); MEAN CORPUSCULAR HEMOGLOBIN 30.2 pg (27.0-31.0); RBC 4.09 Mil/uL (4.40-5.90)
[2016-07-04 11:30] LABS: MEAN CELL VOLUME 91.7 fL (80.0-94.0); MEAN CORPUSCULAR HGB CONC 32.9 g/dL (33.0-37.0); MEAN PLATELET VOLUME 8.7 fL (7.2-11.7); RED CELL DISTRIBUTION WIDTH 14.4 % (11.5-14.5); WHITE BLOOD COUNT 17.3 K/uL (4.8-10.8)
[2016-07-04 11:33] LABS: ALBUMIN 3.7 g/dL (3.5-5.0)
[2016-07-04 11:36] LABS: ALB/GLOB RATIO 0.9 (1.0-2.1); GFR NON-AFRICAN AMERICAN > 60
[2016-07-04 11:37] LABS: ALT/SGPT 41 U/L (21-72); AST/SGOT 45 U/L (17-59); BLOOD UREA NITROGEN 21 mg/dL (9-20); CALCIUM 8.5 mg/dl (8.6-10.4)
[2016-07-04] MEDS: Dextrose 5%/0.9% NS 1,000 ML IV SCH ×2 (14:54→17:49)
[2016-07-05] MEDS: Piperacillin/Tazobact 3.375 GM in Sodium Chloride 100 ML IVPB SCH ×4 (05:30→22:53)
--- NOTE | 2016-07-05 07:39 | CP.PCM.PN ---
<AlysiashelleyMarcus vigil - Last Filed: 07/05/16 09:43> Subjective - Date & Time of Evaluation Date of Evaluation: 07/05/16 Time of Evaluation: 03:30 - Subjective Subjective: PGY1 Medicine note. Dr. Beth service. Pt seen and examined at bedside. Pt resting. Pt has not received any tube feeds. Pt received meds through PEG tube, suction clamped for 30mins, then restarted. Minimal gastric output. No fever overnight. Objective - Vital Signs/Intake and Output Vital Signs (last 24 hours): Temp Pulse Resp BP Pulse Ox 99.3 F 97 H 20 133/79 96 07/04/16 23:25 07/04/16 23:30 07/04/16 23:25 07/04/16 23:25 07/04/16 23:25 Intake and Output: 07/05/16 07/05/16 06:59 18:59 Intake Total 500 Output Total 510 Balance -10 - Medications Medications: Current Medications Aspirin (Aspirin Chewable) 81 mg PEG DAILY [facility] Last Admin: 07/04/16 10:53 Dose: 81 mg Clopidogrel Bisulfate (Plavix) 75 mg PEG DAILY [facility] Last Admin: 07/04/16 10:53 Dose: 75 mg Piperacillin Sod/Tazobactam (Sod 3.375 gm/ Sodium Chloride) 100 mls @ 200 mls/ hr IVPB Q6H [facility] Last Admin: 07/05/16 05:30 Dose: 200 mls/hr Dextrose/Sodium Chloride (Dextrose 5%/0.9% Ns 1000 Ml) 1,000 mls @ 50 mls/hr IV .Q20H [facility] Last Admin: 07/04/16 17:49 Dose: 50 mls/hr Mupirocin (Bactroban Ointment) 0 gm TOP DAILY [facility] Last Admin: 07/04/16 10:55 Dose: 1 applic Oxybutynin Chloride (Ditropan Tab) 5 mg PEG TID [facility] Last Admin: 07/04/16 17:49 Dose: 5 mg Pantoprazole Sodium (Protonix Inj) 40 mg IVP DAILY [facility] Last Admin: 07/04/16 10:51 Dose: 40 mg Phenytoin (Dilantin) 100 mg PEG TID [facility] Last Admin: 07/04/16 17:49 Dose: 100 mg - Labs Labs: 07/04/16 11:16 07/04/16 11:16 PT 10.6 SECONDS (9.7-12.2) 11/24/15 14:10 INR 1.0 11/24/15 14:10 APTT 25 SECONDS (21-34) 11/24/15 14:10 - Constitutional Appears: No Acute Distress - Head Exam Head Exam: ATRAUMATIC, NORMAL INSPECTION, NORMOCEPHALIC - ENT Exam ENT Exam: Mucous Membranes Moist - Respiratory Exam Additional comments: Decreased breath sounds bilaterally at lung bases. - Cardiovascular Exam Cardiovascular Exam: REGULAR RHYTHM, +S1, +S2 Additional comments: regular rate at 87 bpm - GI/Abdominal Exam GI & Abdominal Exam: Soft, Normal Bowel Sounds - Exam Exam: NORMAL INSPECTION. absent: Bladder Distension - Extremities Exam Extremities Exam: Normal Inspection. absent: Pedal Edema - Back Exam Additional comments: Small 1.5 cm vertical sacral skin tear. no active bleeding - Neurological Exam Additional comments: responds to painful stimuli. - Skin Skin Exam: Dry, Intact, Normal Color Assessment and Plan - Assessment and Plan (Free Text) Plan: 1) Abdominal Distension 07/05: Continue current management 07/04: distention improving. Repeat Abd X-ray inconclusive. 07/03: Tube feeds were stopped and suction started due possibility of partial obstruction. 07/02 Abd xray - fecal impaction, will order another abdominal x- ray. f/u results. Stopped Miralax, Stopped Senna, stopped pepcid. Maintenance fluid: D5/NS @50cc/hr 07/02: Some resolution of distension 07/01: starting Lactulose QID until BM 06/30: Abd x-ray: Fecal impaction present. Consider disimpaction vs. Miralax vs Senna. Start Miralax qHS and Senna q72hrs for suspected constipation. 06/27: bladder scan <15cc urine 06/28: abd u/s findings consistent with fatty hepatic infiltrtaion. There are 2 hepatic calcification nonspecific; r/o prior exposure to a granulomatous disease [pls see full report] baker in place Continue Ditropan 5mg via PEG TID 2) Anoxic encephalopathy Assessment & Plan: 07/05: Continue current management 07/04: Continue current management 07/03: Continue current management 07/02: no acute changes: continue with q2h turning, therapy, feeds through PEG site and suctioning trach routinely continue to monitor weekly labs Pending placement (3) Respiratory failure Assessment & Plan: 07/05: Continue current management 07/04: Continue current management 07/03: Continue current management 07/02: CXR shows atelectasis. Continue trach care and suctioning as needed. Monitor (4) CAD (coronary artery disease) Assessment & Plan: 07/05: Continue current management 07/04: Continue current management 07/03: s/p cardiac stents on 06/13/15 Continue ASA 81mg via PEG daily Continue Plavix 75mg via PEG daily (5) Seizures Assessment & Plan: Continue Dilantin 100mg via PEG TID Continue seizure precautions Monitor (6) Bed sore Assessment & Plan: 07/05: Continue current management 07/04: New skin 1.5 cm sacral fissure continue wound care bedside monitor 07/03: Continue current management 07/02: Continue wound care Prevalon boots in place to avoid heel ulcer development Continue to turn patient q2hrs Monitor with skin checks (7) Prophylactic measure Assessment & Plan: Lovenox 40mg SC daily Pepcid 20mg via PEG BID <Nathaniel Beth - Last Filed: 07/06/16 07:22> Objective - Vital Signs/Intake and Output Vital Signs (last 24 hours): Temp Pulse Resp BP Pulse Ox 98.9 F 87 20 146/87 98 07/06/16 01:29 07/06/16 01:29 07/06/16 01:29 07/06/16 01:29 07/06/16 01:29 Intake and Output: 07/06/16 07/06/16 06:59 18:59 Intake Total 500 Output Total 1650 Balance -1150 - Medications Medications: Current Medications Aspirin (Aspirin Chewable) 81 mg PEG DAILY [facility] Last Admin: 07/05/16 10:28 Dose: 81 mg Clopidogrel Bisulfate (Plavix) 75 mg PEG DAILY [facility] Last Admin: 07/05/16 10:28 Dose: 75 mg Dextrose/Sodium Chloride (Dextrose 5%/0.9% Ns 1000 Ml) 1,000 mls @ 50 mls/hr IV .Q20H [facility] Last Admin: 07/05/16 08:10 Dose: Not Given Piperacillin Sod/Tazobactam Sod (Zosyn 3.375 Gm Iv Premix) 50 mls @ 100 mls/hr IVPB Q6H [facility] Mupirocin (Bactroban Ointment) 0 gm TOP DAILY [facility] Last Admin: 07/05/16 10:00 Dose: 1 applic Oxybutynin Chloride (Ditropan Tab) 5 mg PEG TID [facility] Last Admin: 07/05/16 18:49 Dose: 5 mg Pantoprazole Sodium (Protonix Inj) 40 mg IVP DAILY [facility] Last Admin: 07/05/16 10:29 Dose: 40 mg Phenytoin (Dilantin) 100 mg PEG TID [facility] Last Admin: 07/05/16 18:49 Dose: 100 mg - Labs Labs: 07/04/16 11:16 07/04/16 11:16 PT 10.6 SECONDS (9.7-12.2) 11/24/15 14:10 INR 1.0 11/24/15 14:10 APTT 25 SECONDS (21-34) 11/24/15 14:10 Attending/Attestation - Attestation I have personally seen and examined this patient.: Yes I have fully participated in the care of the patient.: Yes I have reviewed all pertinent clinical information, including history, physical exam and plan: Yes Notes (Text): Patient seen and examined; I agree with the resident's assessment and plan as above with the following edits: Following rapid response on the evening of 07/02/16 with finding of PEG tube feeds coming out of tracheostomy with high residual volume and concern for partial bowel obstruction, patient has stabilized; afebrile since past 2 days; WBC yesterday was still elevated (~16) but patient being covered empirically with broad spectrum abx for aspiration pneumonitis (on zosyn). Trach aspirate now positive for Pseudomonas and Klebsiella, urine Cx positive for pseudomonas; will narrow abx to cefepime and aim for total of 7-10 days of antibiotic tx. Abdomen has been soft the last 2 days; will start intermittent tube feeds at 10 cc/hr for 4 hrs at a time alternating with bowel rest for 4 hrs.
[2016-07-05] MEDS: Dextrose 5%/0.9% NS 1,000 ML IV SCH (08:10)
[2016-07-05] MEDS: Phenytoin 100 mg/4 ml Oral Susp UD PEG SCH ×3 (10:31→18:49)
[2016-07-06] MEDS: Piperacillin/Tazobact 3.375 GM in Sodium Chloride 100 ML IVPB SCH (05:46)
--- NOTE | 2016-07-06 08:52 | CP.PCM.PN ---
<AlysiashelleyMarcus vigil - Last Filed: 07/06/16 08:55> Subjective - Date & Time of Evaluation Date of Evaluation: 07/06/16 Time of Evaluation: 08:51 - Subjective Subjective: PGY1 Medicine note. Dr. Beth service. Pt seen and examined at bedside. Pt resting. Feeds will be restarted with intermittent trickle feeds (10cc/hr for 4 hours then no feeds for 4 hours). Pt received meds through PEG tube, suction clamped for 30mins, then restarted. Minimal gastric output. No fever overnight. Objective - Vital Signs/Intake and Output Vital Signs (last 24 hours): Temp Pulse Resp BP Pulse Ox 98.9 F 89 20 146/87 98 07/06/16 01:29 07/06/16 07:55 07/06/16 01:29 07/06/16 01:29 07/06/16 01:29 Intake and Output: 07/06/16 07/06/16 06:59 18:59 Intake Total 850 Output Total 1650 Balance -800 - Medications Medications: Current Medications Aspirin (Aspirin Chewable) 81 mg PEG DAILY [facility] Last Admin: 07/05/16 10:28 Dose: 81 mg Clopidogrel Bisulfate (Plavix) 75 mg PEG DAILY [facility] Last Admin: 07/05/16 10:28 Dose: 75 mg Dextrose/Sodium Chloride (Dextrose 5%/0.9% Ns 1000 Ml) 1,000 mls @ 50 mls/hr IV .Q20H [facility] Last Admin: 07/05/16 08:10 Dose: Not Given Cefepime HCl 1 gm/ Dextrose 50 mls @ 100 mls/hr IVPB Q8H [facility] Mupirocin (Bactroban Ointment) 0 gm TOP DAILY [facility] Last Admin: 07/05/16 10:00 Dose: 1 applic Oxybutynin Chloride (Ditropan Tab) 5 mg PEG TID [facility] Last Admin: 07/05/16 18:49 Dose: 5 mg Pantoprazole Sodium (Protonix Inj) 40 mg IVP DAILY [facility] Last Admin: 07/05/16 10:29 Dose: 40 mg Phenytoin (Dilantin) 100 mg PEG TID [facility] Last Admin: 07/05/16 18:49 Dose: 100 mg - Labs Labs: 07/04/16 11:16 08/12/16 11:16 PT 10.6 SECONDS (9.7-12.2) 11/24/15 14:10 INR 1.0 11/24/15 14:10 APTT 25 SECONDS (21-34) 11/24/15 14:10 - Constitutional Appears: No Acute Distress - Head Exam Head Exam: ATRAUMATIC, NORMAL INSPECTION, NORMOCEPHALIC - ENT Exam ENT Exam: Mucous Membranes Moist - Respiratory Exam Additional comments: Slightly Decreased breath sounds bilaterally at lung bases. - Cardiovascular Exam Cardiovascular Exam: REGULAR RHYTHM, +S1, +S2 Additional comments: regular rate at 89 bpm - GI/Abdominal Exam GI & Abdominal Exam: Soft, Normal Bowel Sounds - Exam Exam: NORMAL INSPECTION. absent: Bladder Distension - Extremities Exam Extremities Exam: Normal Inspection. absent: Pedal Edema - Back Exam Additional comments: Small 1.5 cm vertical sacral skin tear. no active bleeding - Neurological Exam Additional comments: responds to painful stimuli. - Skin Skin Exam: Dry. absent: Diaphoretic Additional comments: Small 1.5 cm vertical sacral skin tear. no active bleeding Assessment and Plan - Assessment and Plan (Free Text) Plan: 1) Abdominal Distension 07/06: Feeds will be resume at 10cc/hr for 4 hours then off 4 hours ( intermittent trickle feeding) 07/05: Continue current management 07/04: distention improving. Repeat Abd X-ray inconclusive. 07/03: Tube feeds were stopped and suction started due possibility of partial obstruction. 07/02 Abd xray - fecal impaction, will order another abdominal x- ray. f/u results. Stopped Miralax, Stopped Senna, stopped pepcid. Maintenance fluid: D5/NS @50cc/hr 07/02: Some resolution of distension 07/01: starting Lactulose QID until BM 06/30: Abd x-ray: Fecal impaction present. Consider disimpaction vs. Miralax vs Senna. Start Miralax qHS and Senna q72hrs for suspected constipation. 06/27: bladder scan <15cc urine 06/28: abd u/s findings consistent with fatty hepatic infiltrtaion. There are 2 hepatic calcification nonspecific; r/o prior exposure to a granulomatous disease [pls see full report] baker in place Continue Ditropan 5mg via PEG TID 2) Anoxic encephalopathy Assessment & Plan: 07/06: Continue current management 07/05: Continue current management 07/04: Continue current management 07/03: Continue current management 07/02: no acute changes: continue with q2h turning, therapy, feeds through PEG site and suctioning trach routinely continue to monitor weekly labs Pending placement (3) Respiratory failure Assessment & Plan: 07/06: Continue current management 07/05: Continue current management 07/04: Continue current management 07/03: Continue current management 07/02: CXR shows atelectasis. Continue trach care and suctioning as needed. Monitor (4) CAD (coronary artery disease) Assessment & Plan: 07/06: Continue current management 07/05: Continue current management 07/04: Continue current management 07/03: s/p cardiac stents on 06/13/15 Continue ASA 81mg via PEG daily Continue Plavix 75mg via PEG daily (5) Seizures Assessment & Plan: 07/06: Continue current management 07/05: Continue current management 07/04:Continue Dilantin 100mg via PEG TID Continue seizure precautions Monitor (6) Bed sore Assessment & Plan: 07/06: Continue current management 07/05: Continue current management 07/04: New skin 1.5 cm sacral fissure continue wound care bedside monitor 07/03: Continue current management 07/02: Continue wound care Prevalon boots in place to avoid heel ulcer development Continue to turn patient q2hrs Monitor with skin checks (7) Prophylactic measure Assessment & Plan: Lovenox 40mg SC daily Pepcid 20mg via PEG BID <Donavan Hallman - Last Filed: 07/09/16 11:50> Objective - Vital Signs/Intake and Output Vital Signs (last 24 hours): Temp Pulse Resp BP Pulse Ox 98.2 F 84 18 138/77 99 07/09/16 08:00 07/09/16 08:00 07/09/16 08:00 07/09/16 09:38 07/09/16 08:00 Intake and Output: 07/09/16 07/09/16 06:59 18:59 Intake Total 1940 Output Total 2400 Balance -460 - Medications Medications: Current Medications Aspirin (Aspirin Chewable) 81 mg PEG DAILY [facility] Last Admin: 07/07/16 11:20 Dose: Not Given Clopidogrel Bisulfate (Plavix) 75 mg PEG DAILY [facility] Last Admin: 07/07/16 11:21 Dose: Not Given Enalapril Maleate (Vasotec) 5 mg PO DAILY [facility] Last Admin: 07/09/16 09:38 Dose: 5 mg Dextrose/Sodium Chloride (Dextrose 5%/0.9% Ns 1000 Ml) 1,000 mls @ 50 mls/hr IV .Q20H [facility] Last Admin: 07/08/16 16:28 Dose: Not Given Cefepime HCl 1 gm/ Dextrose 50 mls @ 100 mls/hr IVPB Q8H [facility] Last Admin: 07/09/16 09:31 Dose: 100 mls/hr Phenytoin 100 mg/ Sodium (Chloride) 102 mls @ 204 mls/hr IVPB Q8 [facility] Last Admin: 07/09/16 05:33 Dose: 204 mls/hr Potassium Chloride/Dextrose/Sod Cl (Potassium Chl 40 Meq In D5-1/2ns) 1,000 mls @ 100 mls/hr IV .Q10H [facility] Last Admin: 07/09/16 09:48 Dose: 100 mls/hr Mupirocin (Bactroban Ointment) 0 gm TOP DAILY [facility] Last Admin: 07/09/16 09:40 Dose: 1 applic Oxybutynin Chloride (Ditropan Tab) 5 mg PEG TID [facility] Last Admin: 07/09/16 09:38 Dose: 5 mg Pantoprazole Sodium (Protonix Inj) 40 mg IVP BID [facility] Last Admin: 07/09/16 09:38 Dose: 40 mg - Labs Labs: 07/09/16 08:10 07/09/16 08:10 PT 10.6 SECONDS (9.7-12.2) 11/24/15 14:10 INR 1.0 11/24/15 14:10 APTT 25 SECONDS (21-34) 11/24/15 14:10 Attending/Attestation - Attestation I have personally seen and examined this patient.: Yes I have fully participated in the care of the patient.: Yes I have reviewed all pertinent clinical information, including history, physical exam and plan: Yes Notes (Text): Patient seen and examined with resident. Agree with the resident's evaluation, assessment and plan.
[2016-07-06] MEDS: Phenytoin 100 mg/4 ml Oral Susp UD PEG SCH ×3 (10:26→17:58)
[2016-07-07 08:30] LABS: BASO % 0.4 % (0.0-2.0); EOS # 0.5 K/uL (0.0-0.7); EOS % 5.5 % (0.0-4.0); HEMOGLOBIN 11.9 g/dL (12.0-18.0); LYMPH # 1.5 K/uL (1.0-4.3); LYMPH % 16.8 % (20.0-40.0); MEAN CELL VOLUME 91.9 fL (80.0-94.0); MEAN CORPUSCULAR HEMOGLOBIN 30.3 pg (27.0-31.0); MEAN CORPUSCULAR HGB CONC 32.9 g/dL (33.0-37.0); MEAN PLATELET VOLUME 8.1 fL (7.2-11.7); MONO % 11.3 % (0.0-10.0); NRBC % 0.1 % (0.0-2.0); RBC 3.92 Mil/uL (4.40-5.90); RED CELL DISTRIBUTION WIDTH 14.6 % (11.5-14.5); WHITE BLOOD COUNT 9.2 K/uL (4.8-10.8)
[2016-07-07 08:46] LABS: ALBUMIN 3.6 g/dL (3.5-5.0)
[2016-07-07 08:49] LABS: AST/SGOT 53 U/L (17-59); GFR NON-AFRICAN AMERICAN > 60
[2016-07-07 08:50] LABS: ALB/GLOB RATIO 0.9 (1.0-2.1); ALT/SGPT 71 U/L (21-72); BLOOD UREA NITROGEN 4 mg/dL (9-20); CALCIUM 8.5 mg/dl (8.6-10.4)
--- NOTE | 2016-07-07 09:35 | CP.PCM.PN ---
<JeromecarieMarcus - Last Filed: 07/07/16 18:58> Subjective - Date & Time of Evaluation Date of Evaluation: 07/07/16 Time of Evaluation: 09:34 - Subjective Subjective: PGY1 Medicine Note for Dr. Hallman service. Pt seen and examined at bedside. Pt resting. Per nursing, pt was having billious then coffee ground emesis coming from PEG tube. Suction was put on and coffee ground appearing material continued to come from PEG. Feeds were stopped. Meds through PEG tube were stopped and transitioned to IV. Plavix and Aspirin were held. Pt was Afebrile overnight. Objective - Vital Signs/Intake and Output Vital Signs (last 24 hours): Temp Pulse Resp BP Pulse Ox 99.6 F 88 18 167/100 H 100 07/07/16 07:53 07/07/16 07:53 07/07/16 07:53 07/07/16 07:53 07/07/16 07:53 Intake and Output: 07/07/16 07/07/16 06:59 18:59 Intake Total 800 Output Total 1300 Balance -500 - Medications Medications: Current Medications Aspirin (Aspirin Chewable) 81 mg PEG DAILY [facility] Last Admin: 07/06/16 10:25 Dose: 81 mg Clopidogrel Bisulfate (Plavix) 75 mg PEG DAILY [facility] Last Admin: 07/06/16 10:25 Dose: 75 mg Dextrose/Sodium Chloride (Dextrose 5%/0.9% Ns 1000 Ml) 1,000 mls @ 50 mls/hr IV .Q20H [facility] Last Admin: 07/07/16 00:00 Dose: Not Given Cefepime HCl 1 gm/ Dextrose 50 mls @ 100 mls/hr IVPB Q8H [facility] Last Admin: 07/07/16 00:32 Dose: 100 mls/hr Potassium Chloride (Potassium Chloride 20 Meq/100 Ml) 100 mls @ 50 mls/hr IVPB ONCE ONE Stop: 07/07/16 11:30 Potassium Chloride (Potassium Chloride 20 Meq/100 Ml) 100 mls @ 50 mls/hr IVPB ONCE STA Stop: 07/07/16 11:31 Mupirocin (Bactroban Ointment) 0 gm TOP DAILY [facility] Last Admin: 07/06/16 10:00 Dose: 1 applic Oxybutynin Chloride (Ditropan Tab) 5 mg PEG TID [facility] Last Admin: 07/06/16 17:58 Dose: 5 mg Pantoprazole Sodium (Protonix Inj) 40 mg IVP DAILY [facility] Last Admin: 07/06/16 10:26 Dose: 40 mg Phenytoin (Dilantin) 100 mg PEG TID [facility] Last Admin: 07/06/16 17:58 Dose: 100 mg - Labs Labs: 07/07/16 08:19 07/07/16 08:19 PT 10.6 SECONDS (9.7-12.2) 11/24/15 14:10 INR 1.0 11/24/15 14:10 APTT 25 SECONDS (21-34) 11/24/15 14:10 - Constitutional Appears: No Acute Distress - Head Exam Head Exam: ATRAUMATIC, NORMOCEPHALIC - ENT Exam ENT Exam: Mucous Membranes Moist - Respiratory Exam Additional comments: Slightly Decreased breath sounds bilaterally at lung bases. - Cardiovascular Exam Cardiovascular Exam: REGULAR RHYTHM, +S1, +S2 Additional comments: regular rate at 88 bpm - GI/Abdominal Exam GI & Abdominal Exam: Soft, Normal Bowel Sounds. absent: Distended - Exam Exam: NORMAL INSPECTION. absent: Bladder Distension - Extremities Exam Extremities Exam: Normal Inspection. absent: Pedal Edema - Back Exam Additional comments: Small 1.5 cm vertical sacral skin tear. no active bleeding - Neurological Exam Additional comments: responds to painful stimuli. - Skin Skin Exam: Dry, Intact, Normal Color. absent: Diaphoretic Additional comments: Small 1.5 cm vertical sacral skin tear. no active bleeding Assessment and Plan - Assessment and Plan (Free Text) Plan: 1) Upper GI bleed Assessment & Plan: 07/07: Coffee ground emesis via PEG tube, CBC stat and 6 hours later, Type & Screen Stopped feeds and change PEG medications to IV medications Held Plavix and Aspirin Consulted GI, Dr. Fermin, help much appreciated F/u H&H Protonix 40 mg IVP BID Monitor 2) Hypokalemia Assessment & Plan: 07/07: K+ 3.0, Potassium Chloride 20 mEq IVPB x2 F/u K+, Mag, Phos this PM Monitor K+ 3) Abdominal Distension Assessment & Plan: 07/07: Stopped feeds and PEG medications due to coffee ground emesis via PEG. 07/06: Feeds will be resume at 10cc/hr for 4 hours then off 4 hours ( intermittent trickle feeding) 07/05: Continue current management 07/04: distention improving. Repeat Abd X-ray inconclusive. 07/03: Tube feeds were stopped and suction started due possibility of partial obstruction. 07/02 Abd xray - fecal impaction, will order another abdominal x- ray. f/u results. Stopped Miralax, Stopped Senna, stopped pepcid. Maintenance fluid: D5/NS @50cc/hr 07/02: Some resolution of distension 07/01: starting Lactulose QID until BM 06/30: Abd x-ray: Fecal impaction present. Consider disimpaction vs. Miralax vs Senna. Start Miralax qHS and Senna q72hrs for suspected constipation. 06/27: bladder scan <15cc urine 06/28: abd u/s findings consistent with fatty hepatic infiltrtaion. There are 2 hepatic calcification nonspecific; r/o prior exposure to a granulomatous disease [pls see full report] baker in place Continue Ditropan 5mg via PEG TID 4) Anoxic encephalopathy Assessment & Plan: 07/07: Continue current management 07/06: Continue current management 07/05: Continue current management 07/04: Continue current management 07/03: Continue current management 07/02: no acute changes: continue with q2h turning, therapy, feeds through PEG site and suctioning trach routinely continue to monitor weekly labs Pending placement (5) Respiratory failure Assessment & Plan: 07/07: Continue current management 07/06: Continue current management 07/05: Continue current management 07/04: Continue current management 07/03: Continue current management 07/02: CXR shows atelectasis. Continue trach care and suctioning as needed. Monitor (6) CAD (coronary artery disease) Assessment & Plan: 07/07: Continue current management 07/06: Continue current management 07/05: Continue current management 07/04: Continue current management 07/03: s/p cardiac stents on 06/13/15 Continue ASA 81mg via PEG daily Continue Plavix 75mg via PEG daily (7) Seizures Assessment & Plan: 07/07: Changed Dilantin 100 mg PED TID to Dilantin 100 mg IVP TID 07/06: Continue current management 07/05: Continue current management 07/04:Continue Dilantin 100mg via PEG TID Continue seizure precautions Monitor (8) Bed sore Assessment & Plan: 07/07: Continue current management 07/06: Continue current management 07/05: Continue current management 07/04: New skin 1.5 cm sacral fissure continue wound care bedside monitor 07/03: Continue current management 07/02: Continue wound care Prevalon boots in place to avoid heel ulcer development Continue to turn patient q2hrs Monitor with skin checks (9) Prophylactic measure Assessment & Plan: Protonix 40 mg IVP BID <Donavan Hallman - Last Filed: 07/14/16 13:34> Objective - Vital Signs/Intake and Output Vital Signs (last 24 hours): Temp Pulse Resp BP Pulse Ox 98.1 F 70 22 129/80 100 07/14/16 07:43 07/14/16 07:43 07/14/16 07:43 07/14/16 11:57 07/14/16 07:43 Intake and Output: 07/14/16 07/14/16 06:59 18:59 Intake Total 550 Output Total 1600 Balance -1050 - Medications Medications: Current Medications Aspirin (Aspirin Chewable) 81 mg PEG DAILY [facility] Last Admin: 07/14/16 11:55 Dose: 81 mg Clopidogrel Bisulfate (Plavix) 75 mg PEG DAILY [facility] Last Admin: 07/14/16 11:55 Dose: 75 mg Enalapril Maleate (Vasotec) 5 mg PO DAILY [facility] Last Admin: 07/14/16 11:57 Dose: 5 mg Famotidine (Pepcid) 20 mg PEG BID [facility] Last Admin: 07/14/16 11:56 Dose: 20 mg Imipenem/Cilastatin Sodium 500 (mg/ Sodium Chloride) 100 mls @ 100 mls/hr IVPB Q6H [facility] Last Admin: 07/14/16 08:16 Dose: 100 mls/hr Dextrose/Sodium Chloride (Dextrose 5%/0.9% Ns 1000 Ml) 1,000 mls @ 20 mls/hr IV .Q24H [facility] Last Admin: 07/12/16 15:54 Dose: 20 mls/hr Gentamicin Sulfate/Sodium Chloride (Gentamicin 100mg/100ml Ns) 100 mls @ 100 mls/hr IVPB Q12H [facility] Last Admin: 07/14/16 03:25 Dose: 100 mls/hr Lactulose (Enulose) 20 gm PEG HS [facility] Last Admin: 07/13/16 22:00 Dose: Not Given Mupirocin (Bactroban Ointment) 0 gm TOP DAILY [facility] Last Admin: 07/14/16 11:58 Dose: 1 applic Phenytoin (Dilantin) 100 mg PEG TID [facility] Last Admin: 07/14/16 11:55 Dose: 100 mg Polyethylene Glycol (Miralax) 17 gm PO QPM [facility] Last Admin: 07/13/16 17:13 Dose: 17 gm Sennosides (Senna Syrup) 5 ml PO BID [facility] Last Admin: 07/14/16 11:56 Dose: 5 ml - Labs Labs: 07/14/16 11:03 07/14/16 11:03 PT 10.6 SECONDS (9.7-12.2) 11/24/15 14:10 INR 1.0 11/24/15 14:10 APTT 25 SECONDS (21-34) 11/24/15 14:10 Attending/Attestation - Attestation I have personally seen and examined this patient.: Yes I have fully participated in the care of the patient.: Yes I have reviewed all pertinent clinical information, including history, physical exam and plan: Yes Notes (Text): Patient seen and examined with the resident. Agree with the resident's evaluation, assessment and plan.
[2016-07-07] MEDS: Phenytoin 100 mg/4 ml Oral Susp UD PEG SCH (11:20)
--- NOTE | 2016-07-07 17:02 | CP.PCM.PN ---
Subjective - Date & Time of Evaluation Date of Evaluation: 07/07/16 Time of Evaluation: 17:00 - Subjective Subjective: CC: Asked to evaluate for coffee grounds in GTube No melena or overt rectal bleeding. Hgb stable. Has anoxic encephalopathy, on Aspirin. Tracheostomy. Gastrostomy (placed by Dr Chan) Discussed with PCP attending; treat conservatively with PPI. Monitor/observe. No need for suction to GTube. Objective - Vital Signs/Intake and Output Vital Signs (last 24 hours): Temp Pulse Resp BP Pulse Ox 97.9 F 99 H 22 162/92 H 99 07/07/16 16:47 07/07/16 16:47 07/07/16 16:47 07/07/16 16:47 07/07/16 16:47 Intake and Output: 07/07/16 07/07/16 06:59 18:59 Intake Total 800 450 Output Total 1300 600 Balance -500 -150 - Medications Medications: Current Medications Aspirin (Aspirin Chewable) 81 mg PEG DAILY [facility] Last Admin: 07/07/16 11:20 Dose: Not Given Clopidogrel Bisulfate (Plavix) 75 mg PEG DAILY [facility] Last Admin: 07/07/16 11:21 Dose: Not Given Dextrose/Sodium Chloride (Dextrose 5%/0.9% Ns 1000 Ml) 1,000 mls @ 50 mls/hr IV .Q20H [facility] Last Admin: 07/07/16 00:00 Dose: Not Given Cefepime HCl 1 gm/ Dextrose 50 mls @ 100 mls/hr IVPB Q8H [facility] Last Admin: 07/07/16 16:20 Dose: 100 mls/hr Phenytoin 100 mg/ Sodium (Chloride) 102 mls @ 204 mls/hr IVPB Q8 [facility] Mupirocin (Bactroban Ointment) 0 gm TOP DAILY [facility] Last Admin: 07/07/16 11:20 Dose: 1 applic Oxybutynin Chloride (Ditropan Tab) 5 mg PEG TID [facility] Last Admin: 07/07/16 11:21 Dose: Not Given Pantoprazole Sodium (Protonix Inj) 40 mg IVP BID [facility] - Labs Labs: 07/07/16 08:19 07/07/16 08:19 PT 10.6 SECONDS (9.7-12.2) 11/24/15 14:10 INR 1.0 11/24/15 14:10 APTT 25 SECONDS (21-34) 11/24/15 14:10 - Constitutional Appears: Chronically Ill - Cardiovascular Exam Cardiovascular Exam: REGULAR RHYTHM - GI/Abdominal Exam GI & Abdominal Exam: Distended (GTube present), Soft, Normal Bowel Sounds - Neurological Exam Additional comments: Anoxic encephalopathy Assessment and Plan (1) Anoxic encephalopathy Assessment & Plan: On vent/GTube. Supportive care Status: Acute - Assessment and Plan (Free Text) Assessment: coffee grounds- likely gastritis near gastrostomy. No evidence of major blood losses. Also on Aspirin. Rec: Hold Aspirin. Place on PPI. Obsevation.
[2016-07-07 17:07] LABS: BASO % 0.5 % (0.0-2.0); EOS # 0.4 K/uL (0.0-0.7); EOS % 4.9 % (0.0-4.0); HEMOGLOBIN 10.4 g/dL (12.0-18.0); LYMPH % 12.3 % (20.0-40.0); MEAN CELL VOLUME 90.9 fL (80.0-94.0); MEAN CORPUSCULAR HEMOGLOBIN 29.6 pg (27.0-31.0); MEAN CORPUSCULAR HGB CONC 32.6 g/dL (33.0-37.0); MEAN PLATELET VOLUME 7.8 fL (7.2-11.7); MONO # 0.8 K/uL (0.0-0.8); MONO % 10.8 % (0.0-10.0); NEUT # 5.5 K/uL (1.8-7.0); NEUT % 71.5 % (50.0-75.0); NRBC % 0.1 % (0.0-2.0); RBC 3.52 Mil/uL (4.40-5.90); RED CELL DISTRIBUTION WIDTH 14.8 % (11.5-14.5); WHITE BLOOD COUNT 7.8 K/uL (4.8-10.8)
[2016-07-07] MEDS: Dextrose 5%/0.9% NS 1,000 ML IV SCH ×3 (17:54→20:24)
[2016-07-07] MEDS: Potassium Chloride 20 mEq 100 ML IVPB SCH ×2 (18:26→20:24)
[2016-07-07] MEDS: Potassium Chl 40 mEq in D5-1/2 1,000 ML IV SCH (22:25)
[2016-07-07 23:01] LABS: HEMOGLOBIN 11.1 g/dL (12.0-18.0); MEAN CELL VOLUME 90.6 fL (80.0-94.0); MEAN CORPUSCULAR HGB CONC 32.1 g/dL (33.0-37.0); MEAN PLATELET VOLUME 7.6 fL (7.2-11.7); RBC 3.83 Mil/uL (4.40-5.90); RED CELL DISTRIBUTION WIDTH 14.4 % (11.5-14.5); WHITE BLOOD COUNT 7.3 K/uL (4.8-10.8)
[2016-07-08 08:24] LABS: BASO # 0.1 K/uL (0.0-0.2); BASO % 0.8 % (0.0-2.0); EOS # 0.6 K/uL (0.0-0.7); EOS % 7.4 % (0.0-4.0); HEMOGLOBIN 11.9 g/dL (12.0-18.0); LYMPH # 1.8 K/uL (1.0-4.3); LYMPH % 22.4 % (20.0-40.0); MEAN CELL VOLUME 92.1 fL (80.0-94.0); MEAN CORPUSCULAR HGB CONC 32.5 g/dL (33.0-37.0); MEAN PLATELET VOLUME 7.9 fL (7.2-11.7); MONO % 12.3 % (0.0-10.0); NEUT # 4.6 K/uL (1.8-7.0); NEUT % 57.1 % (50.0-75.0); RBC 3.98 Mil/uL (4.40-5.90); RED CELL DISTRIBUTION WIDTH 14.8 % (11.5-14.5); WHITE BLOOD COUNT 8.1 K/uL (4.8-10.8)
[2016-07-08 08:41] LABS: ALBUMIN 3.6 g/dL (3.5-5.0)
[2016-07-08 08:44] LABS: ALB/GLOB RATIO 0.9 (1.0-2.1); ALT/SGPT 75 U/L (21-72); AST/SGOT 49 U/L (17-59); BLOOD UREA NITROGEN 5 mg/dL (9-20); GFR NON-AFRICAN AMERICAN > 60
[2016-07-08] MEDS: Potassium Chl 40 mEq in D5-1/2 1,000 ML IV SCH ×3 (10:01→22:14)
[2016-07-08 11:10] LABS: HEMOGLOBIN 11.4 g/dL (12.0-18.0); MEAN CORPUSCULAR HEMOGLOBIN 32.1 pg (27.0-31.0); MEAN CORPUSCULAR HGB CONC 35.3 g/dL (33.0-37.0); MEAN PLATELET VOLUME 9.4 fL (7.2-11.7); RBC 3.56 Mil/uL (4.40-5.90); RED CELL DISTRIBUTION WIDTH 14.8 % (11.5-14.5); WHITE BLOOD COUNT 9.9 K/uL (4.8-10.8)
--- NOTE | 2016-07-08 12:25 | CP.PCM.PN ---
Subjective - Date & Time of Evaluation Date of Evaluation: 07/08/16 Time of Evaluation: 07:15 - Subjective Subjective: PGY1 Medicine Note. Dr. Beth Service PT seen and evaluated. No acute events overnight. PT Gtube is to suction, putting out bilious output. No fever. resting in bed. Afebrile. Objective - Vital Signs/Intake and Output Vital Signs (last 24 hours): Temp Pulse Resp BP Pulse Ox 98.8 F 85 20 171/92 H 100 07/08/16 07:00 07/08/16 07:00 07/08/16 07:00 07/08/16 07:00 07/08/16 07:00 Intake and Output: 07/08/16 07/08/16 06:59 18:59 Intake Total 1500 Output Total 2400 Balance -900 - Medications Medications: Current Medications Aspirin (Aspirin Chewable) 81 mg PEG DAILY [facility] Last Admin: 07/07/16 11:20 Dose: Not Given Clopidogrel Bisulfate (Plavix) 75 mg PEG DAILY [facility] Last Admin: 07/07/16 11:21 Dose: Not Given Dextrose/Sodium Chloride (Dextrose 5%/0.9% Ns 1000 Ml) 1,000 mls @ 50 mls/hr IV .Q20H [facility] Last Admin: 07/07/16 20:24 Dose: Not Given Cefepime HCl 1 gm/ Dextrose 50 mls @ 100 mls/hr IVPB Q8H [facility] Last Admin: 07/08/16 10:06 Dose: 100 mls/hr Phenytoin 100 mg/ Sodium (Chloride) 102 mls @ 204 mls/hr IVPB Q8 [facility] Last Admin: 07/08/16 05:39 Dose: 204 mls/hr Potassium Chloride/Dextrose/Sod Cl (Potassium Chl 40 Meq In D5-1/2ns) 1,000 mls @ 100 mls/hr IV .Q10H [facility] Last Admin: 07/08/16 10:01 Dose: 100 mls/hr Mupirocin (Bactroban Ointment) 0 gm TOP DAILY [facility] Last Admin: 07/08/16 10:07 Dose: 1 applic Oxybutynin Chloride (Ditropan Tab) 5 mg PEG TID [facility] Last Admin: 07/08/16 10:07 Dose: Not Given Pantoprazole Sodium (Protonix Inj) 40 mg IVP BID [facility] Last Admin: 07/08/16 11:13 Dose: 40 mg - Labs Labs: 07/08/16 10:59 07/08/16 08:17 PT 10.6 SECONDS (9.7-12.2) 11/24/15 14:10 INR 1.0 11/24/15 14:10 APTT 25 SECONDS (21-34) 11/24/15 14:10 - Constitutional Appears: Well, No Acute Distress - Head Exam Head Exam: ATRAUMATIC, NORMAL INSPECTION, NORMOCEPHALIC - Eye Exam Eye Exam: EOMI - ENT Exam ENT Exam: Mucous Membranes Moist - Neck Exam Neck Exam: Full ROM - Respiratory Exam Respiratory Exam: Decreased Breath Sounds (bilaterally), Clear to Ausculation Bilateral - Cardiovascular Exam Cardiovascular Exam: RRR, +S1, +S2. absent: Diastolic murmur, Murmur - GI/Abdominal Exam GI & Abdominal Exam: Soft. absent: Distended, Firm - Extremities Exam Extremities Exam: Normal Inspection. absent: Calf Tenderness, Pedal Edema - Neurological Exam Additional comments: PT is on trach. Grimaces to painful stimuli. Assessment and Plan - Assessment and Plan (Free Text) Assessment: No melena or overt rectal bleeding. Hgb stable. Has anoxic encephalopathy, on Aspirin. Tracheostomy. Gastrostomy (placed by Dr Chan) Discussed with PCP attending; treat conservatively with PPI. Monitor/observe. No need for suction to GTube. 1) Upper GI bleed Assessment & Plan: GI consulted: Dr. Fermin, Appreciate recs: No melena, or overt rectal bleeding, H/H stable. Hold Aspirin, Place on PPI, Observe Restarted feeds today Held Plavix and Aspirin H&H stable Protonix 40 mg IVP BID Monitor 2) Hypokalemia Assessment & Plan: K 3.5 today, continue to monitor 07/07: K+ 3.0, Potassium Chloride 20 mEq IVPB x2 F/u K+, Mag, Phos this PM Monitor K+ 3) Abdominal Distension Assessment & Plan: 07/07: Stopped feeds and PEG medications due to coffee ground emesis via PEG. 07/06: Feeds will be resume at 10cc/hr for 4 hours then off 4 hours ( intermittent trickle feeding) 07/05: Continue current management 07/04: distention improving. Repeat Abd X-ray inconclusive. 08/11: Tube feeds were stopped and suction started due possibility of partial obstruction. 07/02 Abd xray - fecal impaction, will order another abdominal x- ray. f/u results. Stopped Miralax, Stopped Senna, stopped pepcid. Maintenance fluid: D5/NS @50cc/hr 07/02: Some resolution of distension 07/01: starting Lactulose QID until BM 06/30: Abd x-ray: Fecal impaction present. Consider disimpaction vs. Miralax vs Senna. Start Miralax qHS and Senna q72hrs for suspected constipation. 06/27: bladder scan <15cc urine 06/28: abd u/s findings consistent with fatty hepatic infiltrtaion. There are 2 hepatic calcification nonspecific; r/o prior exposure to a granulomatous disease [pls see full report] baker in place Continue Ditropan 5mg via PEG TID 4) Anoxic encephalopathy Assessment & Plan: 07/07: Continue current management 07/06: Continue current management 07/05: Continue current management 07/04: Continue current management 07/03: Continue current management 07/02: no acute changes: continue with q2h turning, therapy, feeds through PEG site and suctioning trach routinely continue to monitor weekly labs Pending placement (5) Respiratory failure Assessment & Plan: 07/07: Continue current management 07/06: Continue current management 07/05: Continue current management 07/04: Continue current management 07/03: Continue current management 07/02: CXR shows atelectasis. Continue trach care and suctioning as needed. Monitor (6) CAD (coronary artery disease) Assessment & Plan: 07/07: Continue current management 07/06: Continue current management 07/05: Continue current management 07/04: Continue current management 07/03: s/p cardiac stents on 06/13/15 Continue ASA 81mg via PEG daily Continue Plavix 75mg via PEG daily (7) Seizures Assessment & Plan: 07/07: Changed Dilantin 100 mg PED TID to Dilantin 100 mg IVP TID 07/06: Continue current management 07/05: Continue current management 07/04:Continue Dilantin 100mg via PEG TID Continue seizure precautions Monitor (8) Bed sore Assessment & Plan: 07/07: Continue current management 07/06: Continue current management 07/05: Continue current management 08/12: New skin 1.5 cm sacral fissure continue wound care bedside monitor 07/03: Continue current management 07/02: Continue wound care Prevalon boots in place to avoid heel ulcer development Continue to turn patient q2hrs Monitor with skin checks (9) Prophylactic measure Assessment & Plan: Protonix 40 mg IVP BID
[2016-07-08] MEDS: Dextrose 5%/0.9% NS 1,000 ML IV SCH (16:28)
--- NOTE | 2016-07-09 07:21 | CP.PCM.PN ---
<Geoffrey Liu - Last Filed: 07/09/16 23:29> Subjective - Date & Time of Evaluation Date of Evaluation: 07/09/16 Time of Evaluation: 07:35 - Subjective Subjective: PGY1 Medicine Note. Dr. Beth Service. PT seen and examined at bedside. no acute events overnight. Feeding started yesterday, no new events. PT resting in bed with trach collar, no acute distress. Objective - Vital Signs/Intake and Output Vital Signs (last 24 hours): Temp Pulse Resp BP Pulse Ox 99 F 80 20 147/87 99 07/09/16 00:03 07/09/16 00:03 07/09/16 00:03 07/09/16 00:03 07/09/16 00:03 Intake and Output: 07/09/16 07/09/16 06:59 18:59 Intake Total 1940 Output Total 2400 Balance -460 - Medications Medications: Current Medications Aspirin (Aspirin Chewable) 81 mg PEG DAILY [facility] Last Admin: 07/07/16 11:20 Dose: Not Given Clopidogrel Bisulfate (Plavix) 75 mg PEG DAILY [facility] Last Admin: 07/07/16 11:21 Dose: Not Given Enalapril Maleate (Vasotec) 5 mg PO DAILY [facility] Last Admin: 07/08/16 16:30 Dose: 5 mg Dextrose/Sodium Chloride (Dextrose 5%/0.9% Ns 1000 Ml) 1,000 mls @ 50 mls/hr IV .Q20H [facility] Last Admin: 07/08/16 16:28 Dose: Not Given Cefepime HCl 1 gm/ Dextrose 50 mls @ 100 mls/hr IVPB Q8H [facility] Last Admin: 07/09/16 00:21 Dose: 100 mls/hr Phenytoin 100 mg/ Sodium (Chloride) 102 mls @ 204 mls/hr IVPB Q8 [facility] Last Admin: 07/09/16 05:33 Dose: 204 mls/hr Potassium Chloride/Dextrose/Sod Cl (Potassium Chl 40 Meq In D5-1/2ns) 1,000 mls @ 100 mls/hr IV .Q10H [facility] Last Admin: 07/08/16 22:14 Dose: 100 mls/hr Mupirocin (Bactroban Ointment) 0 gm TOP DAILY [facility] Last Admin: 07/08/16 10:07 Dose: 1 applic Oxybutynin Chloride (Ditropan Tab) 5 mg PEG TID [facility] Last Admin: 07/08/16 17:35 Dose: 5 mg Pantoprazole Sodium (Protonix Inj) 40 mg IVP BID [facility] Last Admin: 07/08/16 17:37 Dose: 40 mg - Labs Labs: 07/08/16 10:59 07/08/16 08:17 PT 10.6 SECONDS (9.7-12.2) 11/24/15 14:10 INR 1.0 11/24/15 14:10 APTT 25 SECONDS (21-34) 11/24/15 14:10 - Constitutional Appears: No Acute Distress - Head Exam Head Exam: ATRAUMATIC, NORMAL INSPECTION, NORMOCEPHALIC - ENT Exam ENT Exam: Mucous Membranes Moist - Respiratory Exam Respiratory Exam: Clear to Ausculation Bilateral, NORMAL BREATHING PATTERN - Cardiovascular Exam Cardiovascular Exam: +S1, +S2 - GI/Abdominal Exam GI & Abdominal Exam: Soft - Neurological Exam Additional comments: grimaces to painful stimuli. Assessment and Plan - Assessment and Plan (Free Text) Assessment: 1) Upper GI bleed Assessment & Plan: GI consulted: Dr. Fermin, Appreciate recs: No melena, or overt rectal bleeding, H/H stable. Hold Aspirin, Place on PPI, Observe Increased feeds to 20cc/hr Held Plavix and Aspirin H&H stable Protonix 40 mg IVP BID Monitor 2) Hypokalemia Assessment & Plan: K 3.6 today, continue to monitor F/u K+, Mag, Phos 3) Abdominal Distension Assessment & Plan: 07/09: colace tid, lactulose once at night 07/07: Stopped feeds and PEG medications due to coffee ground emesis via PEG. 07/06: Feeds will be resume at 10cc/hr for 4 hours then off 4 hours ( intermittent trickle feeding) 07/05: Continue current management 07/04: distention improving. Repeat Abd X-ray inconclusive. 07/03: Tube feeds were stopped and suction started due possibility of partial obstruction. 07/02 Abd xray - fecal impaction, will order another abdominal x- ray. f/u results. Stopped Miralax, Stopped Senna, stopped pepcid. Maintenance fluid: D5/NS @50cc/hr 07/02: Some resolution of distension 08/09: starting Lactulose QID until BM 06/30: Abd x-ray: Fecal impaction present. Consider disimpaction vs. Miralax vs Senna. Start Miralax qHS and Senna q72hrs for suspected constipation. 06/27: bladder scan <15cc urine 06/28: abd u/s findings consistent with fatty hepatic infiltrtaion. There are 2 hepatic calcification nonspecific; r/o prior exposure to a granulomatous disease [pls see full report] baker in place Continue Ditropan 5mg via PEG TID 4) Anoxic encephalopathy Assessment & Plan: no acute changes: continue with q2h turning, therapy, feeds through PEG site and suctioning trach routinely continue to monitor weekly labs Pending placement (5) Respiratory failure Assessment & Plan: Continue current management CXR shows atelectasis. Continue trach care and suctioning as needed. Monitor (6) CAD (coronary artery disease) Assessment & Plan: s/p cardiac stents on 06/13/15 Continue ASA 81mg via PEG daily Continue Plavix 75mg via PEG daily (7) Seizures Assessment & Plan: 07/07: Changed Dilantin 100 mg PED TID to Dilantin 100 mg IVP TID 07/04:Continue Dilantin 100mg via PEG TID Continue seizure precautions Monitor (8) Bed sore Assessment & Plan: 07/04: New skin 1.5 cm sacral fissure continue wound care bedside monitor 07/03: Continue current management 07/02: Continue wound care Prevalon boots in place to avoid heel ulcer development Continue to turn patient q2hrs Monitor with skin checks <Nathaniel Beth - Last Filed: 07/10/16 08:10> Objective - Vital Signs/Intake and Output Vital Signs (last 24 hours): Temp Pulse Resp BP Pulse Ox 99.3 F 74 20 116/73 97 07/10/16 00:00 07/10/16 00:00 07/10/16 00:00 07/10/16 00:00 07/10/16 00:00 Intake and Output: 07/10/16 07/10/16 06:59 18:59 Intake Total 980 1180 Output Total 1600 500 Balance -620 680 - Medications Medications: Current Medications Aspirin (Aspirin Chewable) 81 mg PEG DAILY [facility] Last Admin: 07/07/16 11:20 Dose: Not Given Clopidogrel Bisulfate (Plavix) 75 mg PEG DAILY [facility] Last Admin: 07/07/16 11:21 Dose: Not Given Docusate Sodium (Colace) 100 mg PO TID [facility] Enalapril Maleate (Vasotec) 5 mg PO DAILY [facility] Last Admin: 07/09/16 09:38 Dose: 5 mg Dextrose/Sodium Chloride (Dextrose 5%/0.9% Ns 1000 Ml) 1,000 mls @ 50 mls/hr IV .Q20H [facility] Last Admin: 07/08/16 16:28 Dose: Not Given Phenytoin 100 mg/ Sodium (Chloride) 102 mls @ 204 mls/hr IVPB Q8 [facility] Last Admin: 07/10/16 05:38 Dose: 204 mls/hr Potassium Chloride/Dextrose/Sod Cl (Potassium Chl 40 Meq In D5-1/2ns) 1,000 mls @ 100 mls/hr IV .Q10H [facility] Last Admin: 07/10/16 02:27 Dose: 100 mls/hr Imipenem/Cilastatin Sodium 500 (mg/ Sodium Chloride) 100 mls @ 100 mls/hr IVPB Q6H [facility] Last Admin: 07/10/16 02:24 Dose: 100 mls/hr Gentamicin Sulfate/Sodium Chloride (Gentamicin Iv 80 Mg Premix) 100 mls @ 100 mls/hr IVPB Q8H [facility] Last Admin: 07/10/16 02:24 Dose: 100 mls/hr Lactulose (Enulose) 20 gm PEG HS [facility] Last Admin: 07/09/16 22:20 Dose: 20 gm Mupirocin (Bactroban Ointment) 0 gm TOP DAILY [facility] Last Admin: 07/09/16 09:40 Dose: 1 applic Oxybutynin Chloride (Ditropan Tab) 5 mg PEG TID [facility] Last Admin: 07/09/16 17:22 Dose: 5 mg Pantoprazole Sodium (Protonix Inj) 40 mg IVP BID [facility] Last Admin: 07/09/16 17:22 Dose: 40 mg - Labs Labs: 07/09/16 08:10 07/09/16 08:10 PT 10.6 SECONDS (9.7-12.2) 11/24/15 14:10 INR 1.0 11/24/15 14:10 APTT 25 SECONDS (21-34) 11/24/15 14:10 Attending/Attestation - Attestation I have personally seen and examined this patient.: Yes I have fully participated in the care of the patient.: Yes I have reviewed all pertinent clinical information, including history, physical exam and plan: Yes Notes (Text): Patient seen and examined; I agree with the resident's assessment/plan as above with following additions/edits: Patient with aspiration pneumonitis last week and subsequent sputum culture growing Klebsiella pneumoniae and Psueudomonas for which patient has been on cefepime; currently afebrile with no leukocytosis; However, urine culture grew Proteus which is resistant to cefepime; no way to ascertain whether this is simply colonization due to baker; Patient also tolerating feeds, restarted at 10 cc/hr alternating for 4 hours with bowel rest; appears may again be constipated; -ID recs appreciated; will treat UTI and PNA; abx switched to Gentamicin and imipenem -Start colace tid, lactulose once daily
[2016-07-09 08:20] LABS: BASO # 0.1 K/uL (0.0-0.2); BASO % 0.6 % (0.0-2.0); EOS # 0.6 K/uL (0.0-0.7); EOS % 7.3 % (0.0-4.0); HEMOGLOBIN 11.5 g/dL (12.0-18.0); LYMPH # 1.7 K/uL (1.0-4.3); LYMPH % 21.3 % (20.0-40.0); MEAN CELL VOLUME 91.9 fL (80.0-94.0); MEAN CORPUSCULAR HEMOGLOBIN 29.9 pg (27.0-31.0); MEAN CORPUSCULAR HGB CONC 32.5 g/dL (33.0-37.0); MEAN PLATELET VOLUME 7.5 fL (7.2-11.7); MONO % 12.9 % (0.0-10.0); NEUT # 4.7 K/uL (1.8-7.0); NEUT % 57.9 % (50.0-75.0); RBC 3.84 Mil/uL (4.40-5.90); RED CELL DISTRIBUTION WIDTH 14.9 % (11.5-14.5)
[2016-07-09 08:32] LABS: ALBUMIN 3.5 g/dL (3.5-5.0)
[2016-07-09 08:35] LABS: AST/SGOT 50 U/L (17-59); GFR NON-AFRICAN AMERICAN > 60
[2016-07-09 08:36] LABS: ALB/GLOB RATIO 0.9 (1.0-2.1); ALT/SGPT 88 U/L (21-72); BLOOD UREA NITROGEN 4 mg/dL (9-20)
[2016-07-09] MEDS: Potassium Chl 40 mEq in D5-1/2 1,000 ML IV SCH (09:48)
--- NOTE | 2016-07-09 10:37 | CP.PCM.PN ---
Subjective - Date & Time of Evaluation Date of Evaluation: 07/09/16 Time of Evaluation: 10:34 - Subjective Subjective: No further coffee grounds. Tolerating feeds. Hgb stable. May change Protonix to PO and restart ASA and Plavix. Objective - Vital Signs/Intake and Output Vital Signs (last 24 hours): Temp Pulse Resp BP Pulse Ox 98.2 F 84 18 138/77 99 07/09/16 08:00 07/09/16 08:00 07/09/16 08:00 07/09/16 09:38 07/09/16 08:00 Intake and Output: 07/09/16 07/09/16 06:59 18:59 Intake Total 1940 Output Total 2400 Balance -460 - Medications Medications: Current Medications Aspirin (Aspirin Chewable) 81 mg PEG DAILY [facility] Last Admin: 07/07/16 11:20 Dose: Not Given Clopidogrel Bisulfate (Plavix) 75 mg PEG DAILY [facility] Last Admin: 07/07/16 11:21 Dose: Not Given Enalapril Maleate (Vasotec) 5 mg PO DAILY [facility] Last Admin: 07/09/16 09:38 Dose: 5 mg Dextrose/Sodium Chloride (Dextrose 5%/0.9% Ns 1000 Ml) 1,000 mls @ 50 mls/hr IV .Q20H [facility] Last Admin: 07/08/16 16:28 Dose: Not Given Cefepime HCl 1 gm/ Dextrose 50 mls @ 100 mls/hr IVPB Q8H [facility] Last Admin: 07/09/16 09:31 Dose: 100 mls/hr Phenytoin 100 mg/ Sodium (Chloride) 102 mls @ 204 mls/hr IVPB Q8 [facility] Last Admin: 07/09/16 05:33 Dose: 204 mls/hr Potassium Chloride/Dextrose/Sod Cl (Potassium Chl 40 Meq In D5-1/2ns) 1,000 mls @ 100 mls/hr IV .Q10H [facility] Last Admin: 07/09/16 09:48 Dose: 100 mls/hr Mupirocin (Bactroban Ointment) 0 gm TOP DAILY [facility] Last Admin: 07/09/16 09:40 Dose: 1 applic Oxybutynin Chloride (Ditropan Tab) 5 mg PEG TID [facility] Last Admin: 07/09/16 09:38 Dose: 5 mg Pantoprazole Sodium (Protonix Inj) 40 mg IVP BID [facility] Last Admin: 07/09/16 09:38 Dose: 40 mg - Labs Labs: 07/09/16 08:10 07/09/16 08:10 PT 10.6 SECONDS (9.7-12.2) 11/24/15 14:10 INR 1.0 11/24/15 14:10 APTT 25 SECONDS (21-34) 11/24/15 14:10 - Constitutional Appears: Chronically Ill - Neck Exam Additional comments: Tracheostomy - Cardiovascular Exam Cardiovascular Exam: REGULAR RHYTHM - GI/Abdominal Exam GI & Abdominal Exam: Soft. absent: Tenderness (GTube intact) Assessment and Plan (1) Anoxic encephalopathy Status: Acute - Assessment and Plan (Free Text) Assessment: GI bleed- stable. Not a candidate for aggressive GI endoscopic intervention. May resume Plavix and Aspirin, and change Protonix to PO Reconsult PRN.
--- NOTE | 2016-07-09 18:34 | CP.PCM.CON ---
History of Present Illness - History of Present Illness History of Present Illness: 65 yo male with hypoxic encephalopathu recently had code sepsis and cultures came back with MDRO's in urine and sputum unclear which is source- start Primaxin/ Genta for 7 days Review of Systems - Review of Systems Systems not reviewed;Unavailable: Altered Mental Status Past Patient History - Tetanus Immunizations Tetanus Immunization: Unknown - Past Medical History & Family History Past Medical History?: Yes - Past Social History Smoking Status: Never Smoked Alcohol: None Drugs: Denies - CARDIAC Hx Cardiac Disorders: Yes (unknown condition diagnosed in [place] 15 years ago) - MUSCULOSKELETAL/RHEUMATOLOGICAL Hx Falls: Yes - PSYCHIATRIC Hx Substance Use: No - ANESTHESIA Hx Anesthesia: No Hx Anesthesia Reactions: No Hx Malignant Hyperthermia: No Has any member of the family had a problem w/ anesthesia?: No Meds Allergies/Adverse Reactions: Allergies Allergy/AdvReac Type Severity Reaction Status Date / Time No Known Allergies Allergy Unverified 06/13/15 20:57 - Medications Medications: Current Medications Aspirin (Aspirin Chewable) 81 mg PEG DAILY [facility] Last Admin: 07/07/16 11:20 Dose: Not Given Clopidogrel Bisulfate (Plavix) 75 mg PEG DAILY [facility] Last Admin: 07/07/16 11:21 Dose: Not Given Enalapril Maleate (Vasotec) 5 mg PO DAILY [facility] Last Admin: 07/09/16 09:38 Dose: 5 mg Dextrose/Sodium Chloride (Dextrose 5%/0.9% Ns 1000 Ml) 1,000 mls @ 50 mls/hr IV .Q20H [facility] Last Admin: 07/08/16 16:28 Dose: Not Given Cefepime HCl 1 gm/ Dextrose 50 mls @ 100 mls/hr IVPB Q8H [facility] Last Admin: 07/09/16 16:06 Dose: 100 mls/hr Phenytoin 100 mg/ Sodium (Chloride) 102 mls @ 204 mls/hr IVPB Q8 [facility] Last Admin: 07/09/16 13:49 Dose: 204 mls/hr Potassium Chloride/Dextrose/Sod Cl (Potassium Chl 40 Meq In D5-1/2ns) 1,000 mls @ 100 mls/hr IV .Q10H [facility] Last Admin: 07/09/16 09:48 Dose: 100 mls/hr Mupirocin (Bactroban Ointment) 0 gm TOP DAILY [facility] Last Admin: 07/09/16 09:40 Dose: 1 applic Oxybutynin Chloride (Ditropan Tab) 5 mg PEG TID [facility] Last Admin: 07/09/16 17:22 Dose: 5 mg Pantoprazole Sodium (Protonix Inj) 40 mg IVP BID [facility] Last Admin: 07/09/16 17:22 Dose: 40 mg Physical Exam - Constitutional Appears: Confused - Head Exam Head Exam: NORMOCEPHALIC - Eye Exam Eye Exam: PERRL - ENT Exam ENT Exam: Mucous Membranes Dry - Neck Exam Neck exam: Negative for: Lymphadenopathy - Respiratory Exam Respiratory Exam: Decreased Breath Sounds, Rhonchi - Cardiovascular Exam Cardiovascular Exam: REGULAR RHYTHM, +S1, +S2 - GI/Abdominal Exam GI & Abdominal Exam: Diminished Bowel Sounds, Distended, Soft - Rectal Exam Rectal Exam: Deferred Results - Vital Signs Recent Vital Signs: Last Vital Signs Temp 97.7 F 07/09/16 16:16 Pulse 81 07/09/16 16:16 Resp 20 07/09/16 16:16 BP 129/75 07/09/16 16:16 Pulse Ox 98 07/09/16 16:16 - Labs Result Diagrams: 07/09/16 08:10 07/09/16 08:10 Labs: Laboratory Results - last 24 hr 07/08/16 07/09/16 07/09/16 20:52 07:30 08:10 WBC 8.0 RBC 3.84 L Hgb 11.5 L Hct 35.3 MCV 91.9 MCH 29.9 MCHC 32.5 L RDW 14.9 H Plt Count 339 D MPV 7.5 Neut % (Auto) 57.9 Lymph % (Auto) 21.3 Oliver % (Auto) 12.9 H Eos % (Auto) 7.3 H Baso % (Auto) 0.6 Neut # 4.7 Lymph # 1.7 Oliver # 1.0 H Eos # 0.6 Baso # 0.1 Sodium 140 Potassium 3.6 Chloride 100 Carbon Dioxide 31 H Anion Gap 13 BUN 4 L Creatinine 0.5 L Est GFR ( Amer) > 60 Est GFR (Non-Af Amer) > 60 POC Glucose (mg/dL) 144 H 113 H Random Glucose 112 H Calcium 9.0 Total Bilirubin 0.5 AST 50 ALT 88 H Alkaline Phosphatase 124 Total Protein 7.6 Albumin 3.5 Globulin 4.1 H Albumin/Globulin Ratio 0.9 L 07/09/16 07/09/16 11:12 16:52 WBC RBC Hgb Hct MCV MCH MCHC RDW Plt Count MPV Neut % (Auto) Lymph % (Auto) Oliver % (Auto) Eos % (Auto) Baso % (Auto) Neut # Lymph # Oliver # Eos # Baso # Sodium Potassium Chloride Carbon Dioxide Anion Gap BUN Creatinine Est GFR ( Amer) Est GFR (Non-Af Amer) POC Glucose (mg/dL) 133 H 140 H Random Glucose Calcium Total Bilirubin AST ALT Alkaline Phosphatase Total Protein Albumin Globulin Albumin/Globulin Ratio Assessment & Plan - Assessment and Plan (Free Text) Plan: start empiric rx for 7 days discussed on rounds
[2016-07-09] MEDS: Gentamicin 80 mg in 0.9% NS 100 ML IVPB SCH (19:07)
[2016-07-10] MEDS: Gentamicin 80 mg in 0.9% NS 100 ML IVPB SCH ×3 (02:24→18:47)
[2016-07-10] MEDS: Potassium Chl 40 mEq in D5-1/2 1,000 ML IV SCH ×2 (02:27→09:17)
--- NOTE | 2016-07-10 07:03 | CP.PCM.PN ---
<NoeGeoffrey - Last Filed: 07/10/16 22:37> Subjective - Date & Time of Evaluation Date of Evaluation: 07/10/16 Time of Evaluation: 07:50 - Subjective Subjective: PGY1 medicine note. Dr. Hallman service. PT seen and examined at bedside. No acute events overnight. No change from previous day. Objective - Vital Signs/Intake and Output Vital Signs (last 24 hours): Temp Pulse Resp BP Pulse Ox 99.3 F 74 20 116/73 97 07/10/16 00:00 07/10/16 00:00 07/10/16 00:00 07/10/16 00:00 07/10/16 00:00 Intake and Output: 07/10/16 07/10/16 06:59 18:59 Intake Total 980 Output Total 1600 Balance -620 - Medications Medications: Current Medications Aspirin (Aspirin Chewable) 81 mg PEG DAILY [facility] Last Admin: 07/07/16 11:20 Dose: Not Given Clopidogrel Bisulfate (Plavix) 75 mg PEG DAILY [facility] Last Admin: 07/07/16 11:21 Dose: Not Given Docusate Sodium (Colace) 100 mg PO TID [facility] Enalapril Maleate (Vasotec) 5 mg PO DAILY [facility] Last Admin: 07/09/16 09:38 Dose: 5 mg Dextrose/Sodium Chloride (Dextrose 5%/0.9% Ns 1000 Ml) 1,000 mls @ 50 mls/hr IV .Q20H [facility] Last Admin: 07/08/16 16:28 Dose: Not Given Phenytoin 100 mg/ Sodium (Chloride) 102 mls @ 204 mls/hr IVPB Q8 [facility] Last Admin: 07/10/16 05:38 Dose: 204 mls/hr Potassium Chloride/Dextrose/Sod Cl (Potassium Chl 40 Meq In D5-1/2ns) 1,000 mls @ 100 mls/hr IV .Q10H [facility] Last Admin: 07/10/16 02:27 Dose: 100 mls/hr Imipenem/Cilastatin Sodium 500 (mg/ Sodium Chloride) 100 mls @ 100 mls/hr IVPB Q6H [facility] Last Admin: 07/10/16 02:24 Dose: 100 mls/hr Gentamicin Sulfate/Sodium Chloride (Gentamicin Iv 80 Mg Premix) 100 mls @ 100 mls/hr IVPB Q8H [facility] Last Admin: 07/10/16 02:24 Dose: 100 mls/hr Lactulose (Enulose) 20 gm PEG HS [facility] Last Admin: 07/09/16 22:20 Dose: 20 gm Mupirocin (Bactroban Ointment) 0 gm TOP DAILY [facility] Last Admin: 07/09/16 09:40 Dose: 1 applic Oxybutynin Chloride (Ditropan Tab) 5 mg PEG TID [facility] Last Admin: 07/09/16 17:22 Dose: 5 mg Pantoprazole Sodium (Protonix Inj) 40 mg IVP BID [facility] Last Admin: 07/09/16 17:22 Dose: 40 mg - Labs Labs: 07/09/16 08:10 07/09/16 08:10 PT 10.6 SECONDS (9.7-12.2) 11/24/15 14:10 INR 1.0 11/24/15 14:10 APTT 25 SECONDS (21-34) 11/24/15 14:10 - Constitutional Appears: Well, No Acute Distress - Head Exam Head Exam: ATRAUMATIC, NORMAL INSPECTION, NORMOCEPHALIC - ENT Exam ENT Exam: Mucous Membranes Moist - Respiratory Exam Respiratory Exam: Clear to Ausculation Bilateral, NORMAL BREATHING PATTERN Additional comments: on trach collar - Cardiovascular Exam Cardiovascular Exam: RRR, +S1, +S2 - GI/Abdominal Exam GI & Abdominal Exam: Soft, Hypoactive Bowel Sounds - Extremities Exam Extremities Exam: Normal Inspection. absent: Pedal Edema - Neurological Exam Additional comments: grimaces to painful stimuli Assessment and Plan - Assessment and Plan (Free Text) Assessment: 1) Upper GI bleed Assessment & Plan: GI consulted: Dr. Fermin, Appreciate recs: No melena, or overt rectal bleeding, H/H stable. may restart ASA and Plavix Increased feeds to 20cc/hr H&H stable Protonix 40 mg IVP BID, consider changing to PO Monitor 2) Hypokalemia Assessment & Plan: Electrolytes stable K+4.1, Mag, Phos 3) Abdominal Distension Assessment & Plan: 07/10: Start Miralax 17g PEG qNight. Start Senna syrup 5ml PEG BID, will reduce senna regimen to every 3rd day once patient has a BM 07/09: colace tid, lactulose once at night 07/07: Stopped feeds and PEG medications due to coffee ground emesis via PEG. 07/06: Feeds will be resume at 10cc/hr for 4 hours then off 4 hours ( intermittent trickle feeding) 07/05: Continue current management 07/04: distention improving. Repeat Abd X-ray inconclusive. 07/03: Tube feeds were stopped and suction started due possibility of partial obstruction. 07/02 Abd xray - fecal impaction, will order another abdominal x- ray. f/u results. Stopped Miralax, Stopped Senna, stopped pepcid. Maintenance fluid: D5/NS @50cc/hr 07/02: Some resolution of distension 07/01: starting Lactulose QID until BM 06/30: Abd x-ray: Fecal impaction present. Consider disimpaction vs. Miralax vs Senna. Start Miralax qHS and Senna q72hrs for suspected constipation. 06/27: bladder scan <15cc urine 06/28: abd u/s findings consistent with fatty hepatic infiltrtaion. There are 2 hepatic calcification nonspecific; r/o prior exposure to a granulomatous disease [pls see full report] baker in place Continue Ditropan 5mg via PEG TID 4) Anoxic encephalopathy Assessment & Plan: no acute changes: continue with q2h turning, therapy, feeds through PEG site and suctioning trach routinely continue to monitor weekly labs Pending placement (5) Respiratory failure Assessment & Plan: Continue current management CXR shows atelectasis. Continue trach care and suctioning as needed. Monitor (6) CAD (coronary artery disease) Assessment & Plan: s/p cardiac stents on 06/13/15 Continue ASA 81mg via PEG daily Continue Plavix 75mg via PEG daily (7) Seizures Assessment & Plan: 07/07: Changed Dilantin 100 mg PED TID to Dilantin 100 mg IVP TID 07/04:Continue Dilantin 100mg via PEG TID Continue seizure precautions Monitor (8) Bed sore Assessment & Plan: 07/04: New skin 1.5 cm sacral fissure continue wound care bedside monitor 07/03: Continue current management 07/02: Continue wound care Prevalon boots in place to avoid heel ulcer development Continue to turn patient q2hrs Monitor with skin checks <Donavan Hallman - Last Filed: 07/14/16 13:54> Objective - Vital Signs/Intake and Output Vital Signs (last 24 hours): Temp Pulse Resp BP Pulse Ox 98.1 F 70 22 129/80 100 07/14/16 07:43 07/14/16 07:43 07/14/16 07:43 07/14/16 11:57 07/14/16 07:43 Intake and Output: 07/14/16 07/14/16 06:59 18:59 Intake Total 550 Output Total 1600 Balance -1050 - Medications Medications: Current Medications Aspirin (Aspirin Chewable) 81 mg PEG DAILY [facility] Last Admin: 07/14/16 11:55 Dose: 81 mg Clopidogrel Bisulfate (Plavix) 75 mg PEG DAILY [facility] Last Admin: 07/14/16 11:55 Dose: 75 mg Enalapril Maleate (Vasotec) 5 mg PO DAILY [facility] Last Admin: 07/14/16 11:57 Dose: 5 mg Famotidine (Pepcid) 20 mg PEG BID [facility] Last Admin: 07/14/16 11:56 Dose: 20 mg Imipenem/Cilastatin Sodium 500 (mg/ Sodium Chloride) 100 mls @ 100 mls/hr IVPB Q6H [facility] Last Admin: 07/14/16 08:16 Dose: 100 mls/hr Dextrose/Sodium Chloride (Dextrose 5%/0.9% Ns 1000 Ml) 1,000 mls @ 20 mls/hr IV .Q24H [facility] Last Admin: 07/12/16 15:54 Dose: 20 mls/hr Gentamicin Sulfate/Sodium Chloride (Gentamicin 100mg/100ml Ns) 100 mls @ 100 mls/hr IVPB Q12H [facility] Last Admin: 07/14/16 03:25 Dose: 100 mls/hr Lactulose (Enulose) 20 gm PEG HS [facility] Last Admin: 07/13/16 22:00 Dose: Not Given Mupirocin (Bactroban Ointment) 0 gm TOP DAILY [facility] Last Admin: 07/14/16 11:58 Dose: 1 applic Phenytoin (Dilantin) 100 mg PEG TID [facility] Last Admin: 07/14/16 11:55 Dose: 100 mg Polyethylene Glycol (Miralax) 17 gm PO QPM [facility] Last Admin: 07/13/16 17:13 Dose: 17 gm Sennosides (Senna Syrup) 5 ml PO BID [facility] Last Admin: 07/14/16 11:56 Dose: 5 ml - Labs Labs: 07/14/16 11:03 07/14/16 11:03 PT 10.6 SECONDS (9.7-12.2) 11/24/15 14:10 INR 1.0 11/24/15 14:10 APTT 25 SECONDS (21-34) 11/24/15 14:10 Attending/Attestation - Attestation I have personally seen and examined this patient.: Yes I have fully participated in the care of the patient.: Yes I have reviewed all pertinent clinical information, including history, physical exam and plan: Yes Notes (Text): Patient seen and examined with the resident. Agree with the resident's evaluation, assessment and plan.
[2016-07-10 09:37] LABS: BASO # 0.1 K/uL (0.0-0.2); BASO % 1.4 % (0.0-2.0); EOS # 0.5 K/uL (0.0-0.7); EOS % 5.8 % (0.0-4.0); HEMOGLOBIN 12.7 g/dL (12.0-18.0); LYMPH % 23.3 % (20.0-40.0); MEAN CELL VOLUME 91.9 fL (80.0-94.0); MEAN CORPUSCULAR HEMOGLOBIN 30.3 pg (27.0-31.0); MEAN CORPUSCULAR HGB CONC 32.9 g/dL (33.0-37.0); MEAN PLATELET VOLUME 7.4 fL (7.2-11.7); MONO # 1.1 K/uL (0.0-0.8); MONO % 13.1 % (0.0-10.0); NEUT # 4.9 K/uL (1.8-7.0); NEUT % 56.4 % (50.0-75.0); NRBC % 0.1 % (0.0-2.0); RBC 4.18 Mil/uL (4.40-5.90); RED CELL DISTRIBUTION WIDTH 14.8 % (11.5-14.5); WHITE BLOOD COUNT 8.7 K/uL (4.8-10.8)
[2016-07-10 10:09] LABS: ALBUMIN 3.5 g/dL (3.5-5.0)
[2016-07-10 10:12] LABS: ALB/GLOB RATIO 0.8 (1.0-2.1); AST/SGOT 59 U/L (17-59); BLOOD UREA NITROGEN 4 mg/dL (9-20); GFR NON-AFRICAN AMERICAN > 60
[2016-07-10 10:13] LABS: ALT/SGPT 98 U/L (21-72); CALCIUM 8.9 mg/dl (8.6-10.4)
[2016-07-10] MEDS: Dextrose 5%/0.9% NS 1,000 ML IV SCH (10:55)
--- NOTE | 2016-07-10 18:43 | CP.PCM.PN ---
Subjective - Date & Time of Evaluation Date of Evaluation: 07/10/16 Time of Evaluation: 10:00 - Subjective Subjective: afebrile on IV rx no change clinically Objective - Vital Signs/Intake and Output Vital Signs (last 24 hours): Temp Pulse Resp BP Pulse Ox 98.2 F 63 20 105/69 97 07/10/16 15:59 07/10/16 15:59 07/10/16 15:59 07/10/16 15:59 07/10/16 15:59 Intake and Output: 07/10/16 07/10/16 06:59 18:59 Intake Total 980 2110 Output Total 1600 1200 Balance -620 910 - Medications Medications: Current Medications Aspirin (Aspirin Chewable) 81 mg PEG DAILY [facility] Last Admin: 07/07/16 11:20 Dose: Not Given Clopidogrel Bisulfate (Plavix) 75 mg PEG DAILY [facility] Last Admin: 07/07/16 11:21 Dose: Not Given Enalapril Maleate (Vasotec) 5 mg PO DAILY [facility] Last Admin: 07/10/16 09:16 Dose: 5 mg Phenytoin 100 mg/ Sodium (Chloride) 102 mls @ 204 mls/hr IVPB Q8 [facility] Last Admin: 07/10/16 13:14 Dose: 204 mls/hr Imipenem/Cilastatin Sodium 500 (mg/ Sodium Chloride) 100 mls @ 100 mls/hr IVPB Q6H [facility] Last Admin: 07/10/16 08:34 Dose: 100 mls/hr Gentamicin Sulfate/Sodium Chloride (Gentamicin Iv 80 Mg Premix) 100 mls @ 100 mls/hr IVPB Q8H [facility] Last Admin: 07/10/16 10:50 Dose: 100 mls/hr Dextrose/Sodium Chloride (Dextrose 5%/0.9% Ns 1000 Ml) 1,000 mls @ 50 mls/hr IV .Q20H [facility] Last Admin: 07/10/16 10:55 Dose: 50 mls/hr Lactulose (Enulose) 20 gm PEG HS [facility] Last Admin: 07/09/16 22:20 Dose: 20 gm Mupirocin (Bactroban Ointment) 0 gm TOP DAILY [facility] Last Admin: 07/10/16 09:19 Dose: 1 applic Pantoprazole Sodium (Protonix Inj) 40 mg IVP BID [facility] Last Admin: 07/10/16 09:16 Dose: 40 mg Polyethylene Glycol (Miralax) 17 gm PO QPM [facility] Sennosides (Senna Syrup) 5 ml PO BID [facility] - Labs Labs: 07/10/16 09:31 07/10/16 09:31 PT 10.6 SECONDS (9.7-12.2) 11/24/15 14:10 INR 1.0 11/24/15 14:10 APTT 25 SECONDS (21-34) 11/24/15 14:10 - Constitutional Appears: Non-toxic, Chronically Ill - Head Exam Head Exam: NORMOCEPHALIC - Eye Exam Eye Exam: absent: Scleral icterus - ENT Exam ENT Exam: Mucous Membranes Dry - Neck Exam Neck Exam: absent: Lymphadenopathy - Respiratory Exam Respiratory Exam: Decreased Breath Sounds, Rhonchi - Cardiovascular Exam Cardiovascular Exam: REGULAR RHYTHM, +S1, +S2 - GI/Abdominal Exam GI & Abdominal Exam: Distended, Soft. absent: Tenderness - Rectal Exam Rectal Exam: Deferred Assessment and Plan - Assessment and Plan (Free Text) Plan: cont rx for 7 days for mdro
[2016-07-10] MEDS: [UNRECOGNIZED DRUG - OTHER] PO SCH (18:46)
[2016-07-10] MEDS: POLYETHYLENE GLYCOL 3350 17 GM/Dose PACKET PO SCH (18:46)
[2016-07-11] MEDS: Gentamicin 80 mg in 0.9% NS 100 ML IVPB SCH ×3 (02:51→18:13)
[2016-07-11] MEDS: Dextrose 5%/0.9% NS 1,000 ML IV SCH (05:34)
[2016-07-11 08:10] LABS: ALBUMIN 3.4 g/dL (3.5-5.0)
[2016-07-11 08:12] LABS: GFR NON-AFRICAN AMERICAN > 60
[2016-07-11 08:13] LABS: ALB/GLOB RATIO 0.8 (1.0-2.1); ALT/SGPT 89 U/L (21-72); AST/SGOT 55 U/L (17-59); BLOOD UREA NITROGEN 4 mg/dL (9-20); CALCIUM 8.8 mg/dl (8.6-10.4)
--- NOTE | 2016-07-11 09:52 | CP.PCM.PN ---
<Geoffrey Liu - Last Filed: 07/12/16 01:27> Subjective - Date & Time of Evaluation Date of Evaluation: 07/11/16 Time of Evaluation: 07:35 - Subjective Subjective: PGY1 Medicine Note. Dr. Hallman Service. PT seen and evaluated at bedside. As per nursing, no BM as of yet, however low rate of feeding until GI clears feeding. PT continues to be on direct contact isolation for MRDO in Urine culture. Afebrile. No acute events overnight. Objective - Vital Signs/Intake and Output Vital Signs (last 24 hours): Temp Pulse Resp BP Pulse Ox 98.7 F 76 20 118/78 99 07/11/16 08:00 07/11/16 08:00 07/11/16 08:00 07/11/16 08:00 07/11/16 08:00 Intake and Output: 07/11/16 07/11/16 06:59 18:59 Intake Total 260 880 Output Total 1000 700 Balance -740 180 - Medications Medications: Current Medications Aspirin (Aspirin Chewable) 81 mg PEG DAILY [facility] Last Admin: 07/07/16 11:20 Dose: Not Given Clopidogrel Bisulfate (Plavix) 75 mg PEG DAILY [facility] Last Admin: 07/07/16 11:21 Dose: Not Given Enalapril Maleate (Vasotec) 5 mg PO DAILY [facility] Last Admin: 07/10/16 09:16 Dose: 5 mg Phenytoin 100 mg/ Sodium (Chloride) 102 mls @ 204 mls/hr IVPB Q8 [facility] Last Admin: 07/11/16 05:31 Dose: 204 mls/hr Imipenem/Cilastatin Sodium 500 (mg/ Sodium Chloride) 100 mls @ 100 mls/hr IVPB Q6H [facility] Last Admin: 07/11/16 08:56 Dose: 100 mls/hr Gentamicin Sulfate/Sodium Chloride (Gentamicin Iv 80 Mg Premix) 100 mls @ 100 mls/hr IVPB Q8H [facility] Last Admin: 07/11/16 02:51 Dose: 100 mls/hr Dextrose/Sodium Chloride (Dextrose 5%/0.9% Ns 1000 Ml) 1,000 mls @ 50 mls/hr IV .Q20H [facility] Last Admin: 07/11/16 05:34 Dose: Not Given Lactulose (Enulose) 20 gm PEG HS [facility] Last Admin: 07/10/16 22:51 Dose: 20 gm Mupirocin (Bactroban Ointment) 0 gm TOP DAILY [facility] Last Admin: 07/10/16 09:19 Dose: 1 applic Pantoprazole Sodium (Protonix Inj) 40 mg IVP BID [facility] Last Admin: 07/10/16 18:46 Dose: 40 mg Polyethylene Glycol (Miralax) 17 gm PO QPM [facility] Last Admin: 07/10/16 18:46 Dose: 17 gm Sennosides (Senna Syrup) 5 ml PO BID [facility] Last Admin: 07/10/16 18:46 Dose: 5 ml - Labs Labs: 07/10/16 09:31 07/11/16 07:49 PT 10.6 SECONDS (9.7-12.2) 11/24/15 14:10 INR 1.0 11/24/15 14:10 APTT 25 SECONDS (21-34) 11/24/15 14:10 - Constitutional Appears: No Acute Distress - Head Exam Head Exam: ATRAUMATIC, NORMAL INSPECTION, NORMOCEPHALIC - Eye Exam Eye Exam: EOMI - ENT Exam ENT Exam: Mucous Membranes Moist - Respiratory Exam Respiratory Exam: Clear to Ausculation Bilateral, NORMAL BREATHING PATTERN - Cardiovascular Exam Cardiovascular Exam: RRR, +S1, +S2. absent: Diastolic murmur, Murmur - GI/Abdominal Exam GI & Abdominal Exam: Soft, Hypoactive Bowel Sounds - Extremities Exam Extremities Exam: Normal Inspection. absent: Calf Tenderness - Neurological Exam Additional comments: PT not responsive to voice. Assessment and Plan - Assessment and Plan (Free Text) Assessment: On 07/11, Pt's IV access infiltrated. Staff unable to start another access. Will order for PICC line. will consider switch to PO meds tomorrow. 1) Upper GI bleed Assessment & Plan: GI consulted: Dr. Fermin, Appreciate recs: No melena, or overt rectal bleeding, H/H stable. Cleared to start ASA and Plavix. Tube feeds to 20cc/hr (4 hours on, 4 hours off, repeat) awaiting GI clearance to restart previous feeding regimen. H&H stable Protonix 40 mg IVP BID, consider changing to PO Monitor 2) Hypokalemia Assessment & Plan: Electrolytes stable K 3.9, Mag, Phos 3) Abdominal Distension Assessment & Plan: Still no BM. Miralax 17g PEG qNight. Senna syrup 5ml PEG BID, will reduce senna regimen to every 3rd day once patient has a BM 07/09: colace tid, lactulose once at night 07/07: Stopped feeds and PEG medications due to coffee ground emesis via PEG. 07/06: Feeds will be resume at 10cc/hr for 4 hours then off 4 hours ( intermittent trickle feeding) 07/05: Continue current management 07/04: distention improving. Repeat Abd X-ray inconclusive. 07/03: Tube feeds were stopped and suction started due possibility of partial obstruction. 07/02 Abd xray - fecal impaction, will order another abdominal x- ray. f/u results. Stopped Miralax, Stopped Senna, stopped pepcid. Maintenance fluid: D5/NS @50cc/hr 07/02: Some resolution of distension 07/01: starting Lactulose QID until BM 06/30: Abd x-ray: Fecal impaction present. Consider disimpaction vs. Miralax vs Senna. Start Miralax qHS and Senna q72hrs for suspected constipation. 06/27: bladder scan <15cc urine 06/28: abd u/s findings consistent with fatty hepatic infiltrtaion. There are 2 hepatic calcification nonspecific; r/o prior exposure to a granulomatous disease [pls see full report] baker in place Continue Ditropan 5mg via PEG TID 4) Anoxic encephalopathy Assessment & Plan: no acute changes: continue with q2h turning, therapy, feeds through PEG site and suctioning trach routinely continue to monitor weekly labs Pending placement (5) Respiratory failure Assessment & Plan: Continue current management CXR shows atelectasis. Continue trach care and suctioning as needed. Monitor (6) CAD (coronary artery disease) Assessment & Plan: s/p cardiac stents on 06/13/15 Continue ASA 81mg via PEG daily Continue Plavix 75mg via PEG daily (7) Seizures Assessment & Plan: 07/07: Changed Dilantin 100 mg PED TID to Dilantin 100 mg IVP TID 07/04:Continue Dilantin 100mg via PEG TID Continue seizure precautions Monitor (8) Bed sore Assessment & Plan: 07/04: New skin 1.5 cm sacral fissure continue wound care bedside monitor 07/03: Continue current management 07/02: Continue wound care Prevalon boots in place to avoid heel ulcer development Continue to turn patient q2hrs Monitor with skin checks <Donavan Hallman - Last Filed: 07/14/16 14:04> Objective - Vital Signs/Intake and Output Vital Signs (last 24 hours): Temp Pulse Resp BP Pulse Ox 98.1 F 70 22 129/80 100 07/14/16 07:43 07/14/16 07:43 07/14/16 07:43 07/14/16 11:57 07/14/16 07:43 Intake and Output: 07/14/16 07/14/16 06:59 18:59 Intake Total 550 Output Total 1600 Balance -1050 - Medications Medications: Current Medications Aspirin (Aspirin Chewable) 81 mg PEG DAILY [facility] Last Admin: 07/14/16 11:55 Dose: 81 mg Clopidogrel Bisulfate (Plavix) 75 mg PEG DAILY [facility] Last Admin: 07/14/16 11:55 Dose: 75 mg Enalapril Maleate (Vasotec) 5 mg PO DAILY [facility] Last Admin: 07/14/16 11:57 Dose: 5 mg Famotidine (Pepcid) 20 mg PEG BID [facility] Last Admin: 07/14/16 11:56 Dose: 20 mg Imipenem/Cilastatin Sodium 500 (mg/ Sodium Chloride) 100 mls @ 100 mls/hr IVPB Q6H [facility] Last Admin: 07/14/16 08:16 Dose: 100 mls/hr Dextrose/Sodium Chloride (Dextrose 5%/0.9% Ns 1000 Ml) 1,000 mls @ 20 mls/hr IV .Q24H [facility] Last Admin: 07/12/16 15:54 Dose: 20 mls/hr Gentamicin Sulfate/Sodium Chloride (Gentamicin 100mg/100ml Ns) 100 mls @ 100 mls/hr IVPB Q12H [facility] Last Admin: 07/14/16 03:25 Dose: 100 mls/hr Lactulose (Enulose) 20 gm PEG HS [facility] Last Admin: 07/13/16 22:00 Dose: Not Given Mupirocin (Bactroban Ointment) 0 gm TOP DAILY [facility] Last Admin: 07/14/16 11:58 Dose: 1 applic Phenytoin (Dilantin) 100 mg PEG TID [facility] Last Admin: 07/14/16 11:55 Dose: 100 mg Polyethylene Glycol (Miralax) 17 gm PO QPM [facility] Last Admin: 07/13/16 17:13 Dose: 17 gm Sennosides (Senna Syrup) 5 ml PO BID [facility] Last Admin: 07/14/16 11:56 Dose: 5 ml - Labs Labs: 07/14/16 11:03 07/14/16 11:03 PT 10.6 SECONDS (9.7-12.2) 11/24/15 14:10 INR 1.0 11/24/15 14:10 APTT 25 SECONDS (21-34) 11/24/15 14:10 Attending/Attestation - Attestation I have personally seen and examined this patient.: Yes I have fully participated in the care of the patient.: Yes I have reviewed all pertinent clinical information, including history, physical exam and plan: Yes Notes (Text): Patient seen and examined with resident. Agree with resident's evaluation, assessment and plan.
[2016-07-11] MEDS: [UNRECOGNIZED DRUG - OTHER] PO SCH ×2 (09:53→17:47)
[2016-07-11 12:42] LABS: BASO # 0.1 K/uL (0.0-0.2); BASO % 0.9 % (0.0-2.0); EOS # 0.4 K/uL (0.0-0.7); EOS % 6.5 % (0.0-4.0); HEMOGLOBIN 12.1 g/dL (12.0-18.0); LYMPH # 1.8 K/uL (1.0-4.3); LYMPH % 26.5 % (20.0-40.0); MEAN CELL VOLUME 91.1 fL (80.0-94.0); MEAN CORPUSCULAR HEMOGLOBIN 30.3 pg (27.0-31.0); MEAN CORPUSCULAR HGB CONC 33.3 g/dL (33.0-37.0); MEAN PLATELET VOLUME 7.8 fL (7.2-11.7); MONO # 0.6 K/uL (0.0-0.8); MONO % 9.3 % (0.0-10.0); NEUT # 3.9 K/uL (1.8-7.0); NEUT % 56.8 % (50.0-75.0); NRBC % 0.1 % (0.0-2.0); RBC 3.99 Mil/uL (4.40-5.90); WHITE BLOOD COUNT 6.8 K/uL (4.8-10.8)
[2016-07-11] MEDS: POLYETHYLENE GLYCOL 3350 17 GM/Dose PACKET PO SCH (17:46)
[2016-07-12] MEDS: Dextrose 5%/0.9% NS 1,000 ML IV SCH ×2 (01:00→15:54)
[2016-07-12] MEDS: Gentamicin 80 mg in 0.9% NS 100 ML IVPB SCH ×3 (02:50→18:00)
--- NOTE | 2016-07-12 03:48 | CP.PCM.PN ---
<Waqar Camposa - Last Filed: 07/12/16 03:45> Subjective - Date & Time of Evaluation Date of Evaluation: 07/12/16 Time of Evaluation: 03:47 - Subjective Subjective: PGY-[address] Hallman Patient was seen and examined at bedside. As per nurse, no BM. Patient continues to be on direct contact isolation for MRDO found in urine culture. Patient continues to be afebrile since 07/03/16. Objective - Vital Signs/Intake and Output Vital Signs (last 24 hours): Temp Pulse Resp BP Pulse Ox 99 F 75 20 131/82 99 07/11/16 23:48 07/11/16 23:48 07/11/16 23:48 07/11/16 23:48 07/11/16 23:48 Intake and Output: 07/11/16 07/12/16 18:59 06:59 Intake Total 1660 730 Output Total 700 900 Balance 960 -170 - Medications Medications: Current Medications Aspirin (Aspirin Chewable) 81 mg PEG DAILY [facility] Last Admin: 07/11/16 14:11 Dose: Not Given Clopidogrel Bisulfate (Plavix) 75 mg PEG DAILY [facility] Last Admin: 07/11/16 14:11 Dose: Not Given Enalapril Maleate (Vasotec) 5 mg PO DAILY [facility] Last Admin: 07/11/16 09:54 Dose: 5 mg Phenytoin 100 mg/ Sodium (Chloride) 102 mls @ 204 mls/hr IVPB Q8 [facility] Last Admin: 07/11/16 21:50 Dose: 204 mls/hr Imipenem/Cilastatin Sodium 500 (mg/ Sodium Chloride) 100 mls @ 100 mls/hr IVPB Q6H [facility] Last Admin: 07/12/16 01:16 Dose: 100 mls/hr Gentamicin Sulfate/Sodium Chloride (Gentamicin Iv 80 Mg Premix) 100 mls @ 100 mls/hr IVPB Q8H [facility] Last Admin: 07/12/16 02:50 Dose: 100 mls/hr Dextrose/Sodium Chloride (Dextrose 5%/0.9% Ns 1000 Ml) 1,000 mls @ 50 mls/hr IV .Q20H [facility] Last Admin: 07/12/16 01:00 Dose: 50 mls/hr Lactulose (Enulose) 20 gm PEG HS [facility] Last Admin: 07/11/16 21:50 Dose: 20 gm Mupirocin (Bactroban Ointment) 0 gm TOP DAILY [facility] Last Admin: 07/11/16 09:52 Dose: 1 applic Pantoprazole Sodium (Protonix Inj) 40 mg IVP BID [facility] Last Admin: 07/11/16 17:44 Dose: 40 mg Polyethylene Glycol (Miralax) 17 gm PO QPM [facility] Last Admin: 07/11/16 17:46 Dose: 17 gm Sennosides (Senna Syrup) 5 ml PO BID [facility] Last Admin: 07/11/16 17:47 Dose: 5 ml - Labs Labs: 07/11/16 12:27 07/11/16 07:49 PT 10.6 SECONDS (9.7-12.2) 11/24/15 14:10 INR 1.0 11/24/15 14:10 APTT 25 SECONDS (21-34) 11/24/15 14:10 - Constitutional Appears: No Acute Distress - Head Exam Head Exam: ATRAUMATIC, NORMAL INSPECTION, NORMOCEPHALIC - Eye Exam Eye Exam: EOMI - ENT Exam ENT Exam: Mucous Membranes Moist - Respiratory Exam Respiratory Exam: Clear to Ausculation Bilateral, NORMAL BREATHING PATTERN - Cardiovascular Exam Cardiovascular Exam: REGULAR RHYTHM, RRR, +S1, +S2. absent: Diastolic murmur, Murmur - GI/Abdominal Exam GI & Abdominal Exam: Soft, Hypoactive Bowel Sounds, Normal Bowel Sounds - Extremities Exam Extremities Exam: Normal Inspection. absent: Pedal Edema - Neurological Exam Additional comments: not responsive to voice - Skin Skin Exam: Dry, Intact, Normal Color, Warm Assessment and Plan - Assessment and Plan (Free Text) Plan: On 07/11, Pt's IV access infiltrated. Staff unable to start another access. Will order for PICC line. will consider switch to PO meds tomorrow. 1) Upper GI bleed Assessment & Plan: GI consulted: Dr. Fermin, Appreciate recs: No melena, or overt rectal bleeding, H/H stable. Cleared to start ASA and Plavix. Tube feeds to 20cc/hr (4 hours on, 4 hours off, repeat) awaiting GI clearance to restart previous feeding regimen. H&H stable Protonix 40 mg IVP BID, consider changing to PO Monitor 2) Hypokalemia-resolved Assessment & Plan: Electrolytes stable K 3.9, Mag, Phos 3) Abdominal Distension Assessment & Plan: Still no BM. Miralax 17g PEG qNight. Senna syrup 5ml PEG BID, will reduce senna regimen to every 3rd day once patient has a BM 07/09: colace tid, lactulose once at night 07/07: Stopped feeds and PEG medications due to coffee ground emesis via PEG. 07/06: Feeds will be resume at 10cc/hr for 4 hours then off 4 hours ( intermittent trickle feeding) 07/05: Continue current management 07/04: distention improving. Repeat Abd X-ray inconclusive. 07/03: Tube feeds were stopped and suction started due possibility of partial obstruction. 07/02 Abd xray - fecal impaction, will order another abdominal x- ray. f/u results. Stopped Miralax, Stopped Senna, stopped pepcid. Maintenance fluid: D5/NS @50cc/hr 07/02: Some resolution of distension 07/01: starting Lactulose QID until BM 06/30: Abd x-ray: Fecal impaction present. Consider disimpaction vs. Miralax vs Senna. Start Miralax qHS and Senna q72hrs for suspected constipation. 06/27: bladder scan <15cc urine 06/28: abd u/s findings consistent with fatty hepatic infiltrtaion. There are 2 hepatic calcification nonspecific; r/o prior exposure to a granulomatous disease [pls see full report] baker in place Continue Ditropan 5mg via PEG TID 4) Anoxic encephalopathy Assessment & Plan: no acute changes: continue with q2h turning, therapy, feeds through PEG site and suctioning trach routinely continue to monitor weekly labs Pending placement (5) Respiratory failure Assessment & Plan: Continue current management CXR shows atelectasis. Continue trach care and suctioning as needed. Monitor (6) CAD (coronary artery disease) Assessment & Plan: s/p cardiac stents on 06/13/15 Continue ASA 81mg via PEG daily Continue Plavix 75mg via PEG daily (7) Seizures Assessment & Plan: 07/07: Changed Dilantin 100 mg PED TID to Dilantin 100 mg IVP TID 07/04:Continue Dilantin 100mg via PEG TID Continue seizure precautions Monitor (8) Bed sore Assessment & Plan: 07/04: New skin 1.5 cm sacral fissure continue wound care bedside monitor 07/03: Continue current management 07/02: Continue wound care Prevalon boots in place to avoid heel ulcer development Continue to turn patient q2hrs Monitor with skin checks <Amandeep Chavis H - Last Filed: 07/12/16 15:25> Objective - Vital Signs/Intake and Output Vital Signs (last 24 hours): Temp Pulse Resp BP Pulse Ox 98 F 80 20 124/86 98 07/12/16 07:53 07/12/16 07:53 07/12/16 07:53 07/12/16 10:54 07/12/16 07:53 Intake and Output: 07/12/16 07/12/16 06:59 18:59 Intake Total 1310 960 Output Total 1600 700 Balance -290 260 - Medications Medications: Current Medications Aspirin (Aspirin Chewable) 81 mg PEG DAILY [facility] Last Admin: 07/12/16 10:54 Dose: 81 mg Clopidogrel Bisulfate (Plavix) 75 mg PEG DAILY [facility] Last Admin: 07/12/16 10:54 Dose: 75 mg Enalapril Maleate (Vasotec) 5 mg PO DAILY [facility] Last Admin: 07/12/16 10:54 Dose: 5 mg Phenytoin 100 mg/ Sodium (Chloride) 102 mls @ 204 mls/hr IVPB Q8 [facility] Last Admin: 07/12/16 14:39 Dose: 204 mls/hr Imipenem/Cilastatin Sodium 500 (mg/ Sodium Chloride) 100 mls @ 100 mls/hr IVPB Q6H [facility] Last Admin: 07/12/16 14:40 Dose: 100 mls/hr Gentamicin Sulfate/Sodium Chloride (Gentamicin Iv 80 Mg Premix) 100 mls @ 100 mls/hr IVPB Q8H [facility] Last Admin: 07/12/16 11:37 Dose: 100 mls/hr Dextrose/Sodium Chloride (Dextrose 5%/0.9% Ns 1000 Ml) 1,000 mls @ 50 mls/hr IV .Q20H [facility] Last Admin: 07/12/16 01:00 Dose: 50 mls/hr Lactulose (Enulose) 20 gm PEG HS [facility] Last Admin: 07/11/16 21:50 Dose: 20 gm Mupirocin (Bactroban Ointment) 0 gm TOP DAILY [facility] Last Admin: 07/12/16 10:38 Dose: 1 applic Pantoprazole Sodium (Protonix Inj) 40 mg IVP BID [facility] Last Admin: 07/12/16 10:54 Dose: 40 mg Polyethylene Glycol (Miralax) 17 gm PO QPM [facility] Last Admin: 07/11/16 17:46 Dose: 17 gm Sennosides (Senna Syrup) 5 ml PO BID [facility] Last Admin: 07/12/16 10:54 Dose: 5 ml - Labs Labs: 07/11/16 12:27 07/11/16 07:49 PT 10.6 SECONDS (9.7-12.2) 11/24/15 14:10 INR 1.0 11/24/15 14:10 APTT 25 SECONDS (21-34) 11/24/15 14:10 Assessment and Plan (1) Respiratory failure Status: Acute (2) Anoxic encephalopathy Status: Acute (3) STEMI (ST elevation myocardial infarction) Status: Acute (4) Cardiac arrest Status: Acute (5) Seizures Status: Acute (6) Prophylactic measure Status: Acute Attending/Attestation - Attestation I have personally seen and examined this patient.: Yes I have fully participated in the care of the patient.: Yes I have reviewed all pertinent clinical information, including history, physical exam and plan: Yes Notes (Text): 07/12/16 15:23 Medical Attending: Agree with the above by resident. Family member present at bedside today. RN explained there has been a lot of difficulty with peripheral IV so will decrease IVF to 20 to KVO and also change IV Dilantin over to via PEG 100 TID. Patient was more active today, moving arms and eyes. As documented before he has had very severe anoxic brain injury. thank you Amandeep Chavis
[2016-07-12] MEDS: [UNRECOGNIZED DRUG - OTHER] PO SCH ×2 (10:54→17:55)
[2016-07-12] MEDS: Phenytoin 100 mg/4 ml Oral Susp UD PEG SCH (17:54)
[2016-07-12] MEDS: POLYETHYLENE GLYCOL 3350 17 GM/Dose PACKET PO SCH (17:54)
[2016-07-13] MEDS: Gentamicin 80 mg in 0.9% NS 100 ML IVPB SCH ×2 (02:20→11:18)
[2016-07-13] MEDS: Phenytoin 100 mg/4 ml Oral Susp UD PEG SCH ×3 (09:40→17:14)
[2016-07-13] MEDS: [UNRECOGNIZED DRUG - OTHER] PO SCH ×2 (09:43→17:16)
--- NOTE | 2016-07-13 12:35 | CP.PCM.PN ---
<Amandeep Lomas - Last Filed: 07/13/16 23:04> Subjective - Date & Time of Evaluation Date of Evaluation: 07/13/16 Time of Evaluation: 08:00 - Subjective Subjective: PGY1 Medicine Note. Dr. Chavis's Service. Patient seen and examined this am. Per nurse, patient had 2 BM yesterday, non overnight. Patient continues to be on direct contact isolation for MRDO found in his urine culture. Patient continues to be afebrile since 07/03/16. Patient cannot respond to questions, but occasionally grunts when spoken to. Trach collar clean and intact. Objective - Vital Signs/Intake and Output Vital Signs (last 24 hours): Temp Pulse Resp BP Pulse Ox 98.7 F 74 18 120/73 100 07/13/16 08:02 07/13/16 08:02 07/13/16 08:02 07/13/16 09:40 07/13/16 08:02 Intake and Output: 07/13/16 07/13/16 06:59 18:59 Intake Total 980 Output Total 1250 Balance -270 - Medications Medications: Current Medications Aspirin (Aspirin Chewable) 81 mg PEG DAILY [facility] Last Admin: 07/13/16 09:40 Dose: 81 mg Clopidogrel Bisulfate (Plavix) 75 mg PEG DAILY [facility] Last Admin: 07/13/16 09:41 Dose: 75 mg Enalapril Maleate (Vasotec) 5 mg PO DAILY [facility] Last Admin: 07/13/16 09:40 Dose: 5 mg Famotidine (Pepcid) 20 mg PEG BID [facility] Last Admin: 07/13/16 09:40 Dose: 20 mg Imipenem/Cilastatin Sodium 500 (mg/ Sodium Chloride) 100 mls @ 100 mls/hr IVPB Q6H [facility] Last Admin: 07/13/16 09:42 Dose: 100 mls/hr Gentamicin Sulfate/Sodium Chloride (Gentamicin Iv 80 Mg Premix) 100 mls @ 100 mls/hr IVPB Q8H [facility] Last Admin: 07/13/16 11:18 Dose: 100 mls/hr Dextrose/Sodium Chloride (Dextrose 5%/0.9% Ns 1000 Ml) 1,000 mls @ 20 mls/hr IV .Q24H [facility] Last Admin: 07/12/16 15:54 Dose: 20 mls/hr Lactulose (Enulose) 20 gm PEG HS [facility] Last Admin: 07/12/16 22:19 Dose: 20 gm Mupirocin (Bactroban Ointment) 0 gm TOP DAILY [facility] Last Admin: 07/13/16 09:41 Dose: 1 applic Phenytoin (Dilantin) 100 mg PEG TID [facility] Last Admin: 07/13/16 09:40 Dose: 100 mg Polyethylene Glycol (Miralax) 17 gm PO QPM [facility] Last Admin: 07/12/16 17:54 Dose: 17 gm Sennosides (Senna Syrup) 5 ml PO BID [facility] Last Admin: 07/13/16 09:43 Dose: 5 ml - Labs Labs: 07/11/16 12:27 07/11/16 07:49 PT 10.6 SECONDS (9.7-12.2) 11/24/15 14:10 INR 1.0 11/24/15 14:10 APTT 25 SECONDS (21-34) 11/24/15 14:10 - Constitutional Appears: No Acute Distress - Head Exam Head Exam: ATRAUMATIC, NORMAL INSPECTION - Eye Exam Eye Exam: EOMI - ENT Exam ENT Exam: Mucous Membranes Dry - Respiratory Exam Respiratory Exam: Clear to Ausculation Bilateral (patient on ventilator). absent: Wheezes - Cardiovascular Exam Cardiovascular Exam: REGULAR RHYTHM, +S1, +S2 - GI/Abdominal Exam GI & Abdominal Exam: Distended, Soft, Hypoactive Bowel Sounds. absent: Diminished Bowel Sounds - Rectal Exam Rectal Exam: Deferred - Extremities Exam Extremities Exam: Normal Inspection - Neurological Exam Neurological Exam: Altered (patient would reply to questioning with occasional groaning.) Neuro motor strength exam: Left Upper Extremity: 5 - Psychiatric Exam Psychiatric exam: Flat Affect Assessment and Plan - Assessment and Plan (Free Text) Assessment: 1) Upper GI bleed Assessment & Plan: 07/13: Continue current management. GI consulted: Dr. Fermin, Appreciate recs: No melena, or overt rectal bleeding, H/H stable. Cleared to start ASA and Plavix. Tube feeds to 20cc/hr (4 hours on, 4 hours off, repeat) awaiting GI clearance to restart previous feeding regimen. H&H stable Protonix 40 mg IVP BID, consider changing to PO Monitor 2) Hypokalemia-resolved Assessment & Plan: Electrolytes stable K 3.9, Mag, Phos 3) Abdominal Distension Assessment & Plan: 07/13: Abdominal distension still evident, despite nursing reporting 2 BM late . ID on case, Dr. Walden - rx in progress, adjust gentamicin Prior: Still no BM. Miralax 17g PEG qNight. Senna syrup 5ml PEG BID, will reduce senna regimen to every 3rd day once patient has a BM 07/09: colace tid, lactulose once at night 07/07: Stopped feeds and PEG medications due to coffee ground emesis via PEG. 07/06: Feeds will be resume at 10cc/hr for 4 hours then off 4 hours ( intermittent trickle feeding) 07/05: Continue current management 07/04: distention improving. Repeat Abd X-ray inconclusive. 07/03: Tube feeds were stopped and suction started due possibility of partial obstruction. 07/02 Abd xray - fecal impaction, will order another abdominal x- ray. f/u results. Stopped Miralax, Stopped Senna, stopped pepcid. Maintenance fluid: D5/NS @50cc/hr 07/02: Some resolution of distension 07/01: starting Lactulose QID until BM 06/30: Abd x-ray: Fecal impaction present. Consider disimpaction vs. Miralax vs Senna. Start Miralax qHS and Senna q72hrs for suspected constipation. 06/27: bladder scan <15cc urine 06/28: abd u/s findings consistent with fatty hepatic infiltrtaion. There are 2 hepatic calcification nonspecific; r/o prior exposure to a granulomatous disease [pls see full report] baker in place Continue Ditropan 5mg via PEG TID 4) Anoxic encephalopathy Assessment & Plan: no acute changes: continue with q2h turning, therapy, feeds through PEG site and suctioning trach routinely continue to monitor weekly labs Pending placement (5) Respiratory failure Assessment & Plan: 07/13: Continue trach care and suctioning as needed. Continue current management CXR shows atelectasis. Monitor (6) CAD (coronary artery disease) Assessment & Plan: 07/13: Continue current management. s/p cardiac stents on 06/13/15 Continue ASA 81mg via PEG daily Continue Plavix 75mg via PEG daily (7) Seizures Assessment & Plan: 07/13: Continue current management with Dilantin. 07/07: Changed Dilantin 100 mg PED TID to Dilantin 100 mg IVP TID 07/04:Continue Dilantin 100mg via PEG TID Continue seizure precautions Monitor (8) Bed sore Assessment & Plan: 07/13: Continue current management 07/04: New skin 1.5 cm sacral fissure continue wound care bedside monitor 07/03: Continue current management 07/02: Continue wound care Prevalon boots in place to avoid heel ulcer development Continue to turn patient q2hrs Monitor with skin checks <Amandeep Chavis H - Last Filed: 07/14/16 07:27> Objective - Vital Signs/Intake and Output Vital Signs (last 24 hours): Temp Pulse Resp BP Pulse Ox 98.6 F 77 22 121/84 100 07/13/16 23:40 07/13/16 23:40 07/13/16 23:40 07/13/16 23:40 07/13/16 23:40 Intake and Output: 07/14/16 07/14/16 06:59 18:59 Intake Total 550 Output Total 1600 Balance -1050 - Medications Medications: Current Medications Aspirin (Aspirin Chewable) 81 mg PEG DAILY [facility] Last Admin: 07/13/16 09:40 Dose: 81 mg Clopidogrel Bisulfate (Plavix) 75 mg PEG DAILY [facility] Last Admin: 07/13/16 09:41 Dose: 75 mg Enalapril Maleate (Vasotec) 5 mg PO DAILY [facility] Last Admin: 07/13/16 09:40 Dose: 5 mg Famotidine (Pepcid) 20 mg PEG BID [facility] Last Admin: 07/13/16 17:14 Dose: 20 mg Imipenem/Cilastatin Sodium 500 (mg/ Sodium Chloride) 100 mls @ 100 mls/hr IVPB Q6H [facility] Last Admin: 07/14/16 01:10 Dose: 100 mls/hr Dextrose/Sodium Chloride (Dextrose 5%/0.9% Ns 1000 Ml) 1,000 mls @ 20 mls/hr IV .Q24H [facility] Last Admin: 07/12/16 15:54 Dose: 20 mls/hr Gentamicin Sulfate/Sodium Chloride (Gentamicin 100mg/100ml Ns) 100 mls @ 100 mls/hr IVPB Q12H [facility] Last Admin: 07/14/16 03:25 Dose: 100 mls/hr Lactulose (Enulose) 20 gm PEG HS [facility] Last Admin: 07/13/16 22:00 Dose: Not Given Mupirocin (Bactroban Ointment) 0 gm TOP DAILY [facility] Last Admin: 07/13/16 09:41 Dose: 1 applic Phenytoin (Dilantin) 100 mg PEG TID [facility] Last Admin: 07/13/16 17:14 Dose: 100 mg Polyethylene Glycol (Miralax) 17 gm PO QPM [facility] Last Admin: 07/13/16 17:13 Dose: 17 gm Sennosides (Senna Syrup) 5 ml PO BID [facility] Last Admin: 07/13/16 17:16 Dose: 5 ml - Labs Labs: 07/11/16 12:27 07/11/16 07:49 PT 10.6 SECONDS (9.7-12.2) 11/24/15 14:10 INR 1.0 11/24/15 14:10 APTT 25 SECONDS (21-34) 11/24/15 14:10 Assessment and Plan (1) Respiratory failure Status: Acute (2) Anoxic encephalopathy Status: Acute (3) STEMI (ST elevation myocardial infarction) Status: Acute (4) Cardiac arrest Status: Acute (5) Seizures Status: Acute (6) Prophylactic measure Status: Acute Attending/Attestation - Attestation I have personally seen and examined this patient.: Yes I have fully participated in the care of the patient.: Yes I have reviewed all pertinent clinical information, including history, physical exam and plan: Yes
--- NOTE | 2016-07-13 15:57 | CP.PCM.PN ---
Subjective - Date & Time of Evaluation Date of Evaluation: 07/13/16 Time of Evaluation: 10:00 - Subjective Subjective: rx in progress adjust gentamicin Objective - Vital Signs/Intake and Output Vital Signs (last 24 hours): Temp Pulse Resp BP Pulse Ox 98.7 F 74 18 120/73 100 07/13/16 08:02 07/13/16 08:02 07/13/16 08:02 07/13/16 09:40 07/13/16 08:02 Intake and Output: 07/13/16 07/13/16 06:59 18:59 Intake Total 980 Output Total 1250 Balance -270 - Medications Medications: Current Medications Aspirin (Aspirin Chewable) 81 mg PEG DAILY [facility] Last Admin: 07/13/16 09:40 Dose: 81 mg Clopidogrel Bisulfate (Plavix) 75 mg PEG DAILY [facility] Last Admin: 07/13/16 09:41 Dose: 75 mg Enalapril Maleate (Vasotec) 5 mg PO DAILY [facility] Last Admin: 07/13/16 09:40 Dose: 5 mg Famotidine (Pepcid) 20 mg PEG BID [facility] Last Admin: 07/13/16 09:40 Dose: 20 mg Imipenem/Cilastatin Sodium 500 (mg/ Sodium Chloride) 100 mls @ 100 mls/hr IVPB Q6H [facility] Last Admin: 07/13/16 14:45 Dose: 100 mls/hr Dextrose/Sodium Chloride (Dextrose 5%/0.9% Ns 1000 Ml) 1,000 mls @ 20 mls/hr IV .Q24H [facility] Last Admin: 07/12/16 15:54 Dose: 20 mls/hr Gentamicin Sulfate 80 mg/ (Sodium Chloride) 102 mls @ 100 mls/hr IVPB Q12H [facility] Lactulose (Enulose) 20 gm PEG HS [facility] Last Admin: 07/12/16 22:19 Dose: 20 gm Mupirocin (Bactroban Ointment) 0 gm TOP DAILY [facility] Last Admin: 07/13/16 09:41 Dose: 1 applic Phenytoin (Dilantin) 100 mg PEG TID [facility] Last Admin: 07/13/16 14:47 Dose: 100 mg Polyethylene Glycol (Miralax) 17 gm PO QPM [facility] Last Admin: 07/12/16 17:54 Dose: 17 gm Sennosides (Senna Syrup) 5 ml PO BID [facility] Last Admin: 07/13/16 09:43 Dose: 5 ml - Labs Labs: 07/11/16 12:27 07/11/16 07:49 PT 10.6 SECONDS (9.7-12.2) 11/24/15 14:10 INR 1.0 11/24/15 14:10 APTT 25 SECONDS (21-34) 11/24/15 14:10
[2016-07-13] MEDS: POLYETHYLENE GLYCOL 3350 17 GM/Dose PACKET PO SCH (17:13)
[2016-07-13] MEDS: GENTAMICIN IVPB SCH (17:37)
[2016-07-13] MEDS: NS IVPB SCH (17:37)
[2016-07-14] MEDS: NS IVPB SCH (03:25)
[2016-07-14] MEDS: GENTAMICIN IVPB SCH (03:25)
[2016-07-14 11:12] LABS: BASO % 0.1 % (0.0-2.0); EOS # 0.3 K/uL (0.0-0.7); EOS % 1.4 % (0.0-4.0); HEMOGLOBIN 12.2 g/dL (12.0-18.0); LYMPH # 1.3 K/uL (1.0-4.3); LYMPH % 6.6 % (20.0-40.0); MEAN CELL VOLUME 90.8 fL (80.0-94.0); MEAN CORPUSCULAR HEMOGLOBIN 29.9 pg (27.0-31.0); MEAN CORPUSCULAR HGB CONC 32.9 g/dL (33.0-37.0); MEAN PLATELET VOLUME 7.6 fL (7.2-11.7); MONO # 0.9 K/uL (0.0-0.8); MONO % 4.3 % (0.0-10.0); NEUT # 17.2 K/uL (1.8-7.0); NEUT % 87.6 % (50.0-75.0); PLATELET COUNT 403 K/uL (130-400); RBC 4.07 Mil/uL (4.40-5.90); RED CELL DISTRIBUTION WIDTH 15.3 % (11.5-14.5)
[2016-07-14 11:16] LABS: WHITE BLOOD COUNT 19.7 K/uL (4.8-10.8)
[2016-07-14 11:27] LABS: ALBUMIN 3.6 g/dL (3.5-5.0)
[2016-07-14 11:30] LABS: ALB/GLOB RATIO 0.8 (1.0-2.1); AST/SGOT 46 U/L (17-59); BLOOD UREA NITROGEN 8 mg/dL (9-20); GFR NON-AFRICAN AMERICAN > 60
[2016-07-14 11:31] LABS: ALT/SGPT 85 U/L (21-72); CALCIUM 8.5 mg/dl (8.6-10.4)
[2016-07-14] MEDS: Phenytoin 100 mg/4 ml Oral Susp UD PEG SCH ×3 (11:55→17:19)
[2016-07-14] MEDS: [UNRECOGNIZED DRUG - OTHER] PO SCH (11:56)
[2016-07-14 12:09] LABS: EOSINOPHIL 3 % (0-4); LYMPHOCYTE 5 % (20-40); MONOCYTE 6 % (0-10); NEUTROPHIL 86 % (50-75); TOTAL CELLS COUNTED 100
[2016-07-14 12:10] LABS: ANISOCYTOSIS SLIGHT; PLATELET ESTIMATE NORMAL (NORMAL)
--- NOTE | 2016-07-14 15:18 | CP.PCM.PN ---
<Geoffrey Liu - Last Filed: 07/14/16 17:34> Subjective - Date & Time of Evaluation Date of Evaluation: 07/14/16 Time of Evaluation: 08:50 - Subjective Subjective: PGY1 Medicine note. Dr. Ignacia michelle. PT seen and evaluated at bedside. As per nursing, last BMx2 was on 07/12. No acute events overnight. No fever, no chills. Objective - Vital Signs/Intake and Output Vital Signs (last 24 hours): Temp Pulse Resp BP Pulse Ox 98.1 F 70 22 129/80 100 07/14/16 07:43 07/14/16 07:43 07/14/16 07:43 07/14/16 11:57 07/14/16 07:43 Intake and Output: 07/14/16 07/14/16 06:59 18:59 Intake Total 550 Output Total 1600 200 Balance -1050 -200 - Medications Medications: Current Medications Aspirin (Aspirin Chewable) 81 mg PEG DAILY [facility] Last Admin: 07/14/16 11:55 Dose: 81 mg Clopidogrel Bisulfate (Plavix) 75 mg PEG DAILY [facility] Last Admin: 07/14/16 11:55 Dose: 75 mg Enalapril Maleate (Vasotec) 5 mg PO DAILY [facility] Last Admin: 07/14/16 11:57 Dose: 5 mg Famotidine (Pepcid) 20 mg PEG BID [facility] Last Admin: 07/14/16 11:56 Dose: 20 mg Imipenem/Cilastatin Sodium 500 (mg/ Sodium Chloride) 100 mls @ 100 mls/hr IVPB Q6H [facility] Last Admin: 07/14/16 14:08 Dose: 100 mls/hr Dextrose/Sodium Chloride (Dextrose 5%/0.9% Ns 1000 Ml) 1,000 mls @ 20 mls/hr IV .Q24H [facility] Last Admin: 07/12/16 15:54 Dose: 20 mls/hr Gentamicin Sulfate/Sodium Chloride (Gentamicin 100mg/100ml Ns) 100 mls @ 100 mls/hr IVPB Q24H [facility] Lactulose (Enulose) 20 gm PEG HS [facility] Last Admin: 07/13/16 22:00 Dose: Not Given Mupirocin (Bactroban Ointment) 0 gm TOP DAILY [facility] Last Admin: 07/14/16 11:58 Dose: 1 applic Phenytoin (Dilantin) 100 mg PEG TID [facility] Last Admin: 07/14/16 14:10 Dose: 100 mg Polyethylene Glycol (Miralax) 17 gm PO QPM [facility] Last Admin: 07/13/16 17:13 Dose: 17 gm Sennosides (Senna Syrup) 5 ml PO BID [facility] Last Admin: 07/14/16 11:56 Dose: 5 ml - Labs Labs: 07/14/16 11:03 07/14/16 11:03 PT 10.6 SECONDS (9.7-12.2) 11/24/15 14:10 INR 1.0 11/24/15 14:10 APTT 25 SECONDS (21-34) 11/24/15 14:10 - Constitutional Appears: Well, No Acute Distress - Head Exam Head Exam: ATRAUMATIC, NORMAL INSPECTION, NORMOCEPHALIC - ENT Exam ENT Exam: Mucous Membranes Moist - Respiratory Exam Respiratory Exam: Clear to Ausculation Bilateral, NORMAL BREATHING PATTERN - Cardiovascular Exam Cardiovascular Exam: RRR, +S1, +S2. absent: Murmur - GI/Abdominal Exam GI & Abdominal Exam: Soft, Hyperactive Bowel Sounds - Extremities Exam Extremities Exam: Normal Inspection - Neurological Exam Additional comments: PT does not respond to verbal stimuli. Grimaces to painful stimuli Assessment and Plan - Assessment and Plan (Free Text) Assessment: 1) Upper GI bleed Assessment & Plan: GI consulted: Dr. Fermin, Appreciate recs: No melena, or overt rectal bleeding, H/H stable. May reconsult as necessary Cleared to start ASA and Plavix. Tube feeds increased to 30cc/hr (4 hours on, 4 hours off, repeat) H&H stable Protonix 40 mg IVP BID, consider changing to PO Monitor 2) Hypokalemia-resolved Assessment & Plan: Electrolytes stable K 3.2, 40mEq K given. 3) Abdominal Distension Assessment & Plan: Increased feeding to 30cc/hr (4hr on, 4hr off). Will differ PICC placement for now due WBC - 19.7 Today. Nursing reports 2 BMs on 07/12. Hyperactive bowel sounds. Will d/c senna. Continue Miralax and lactulose as ordered ID on case, Dr. Walden - rx in progress, adjust gentamicin to 100mg q24 Prior: Still no BM. Miralax 17g PEG qNight. Senna syrup 5ml PEG BID, will reduce senna regimen to every 3rd day once patient has a BM 07/09: colace tid, lactulose once at night 07/07: Stopped feeds and PEG medications due to coffee ground emesis via PEG. 07/06: Feeds will be resume at 10cc/hr for 4 hours then off 4 hours ( intermittent trickle feeding) 07/05: Continue current management 07/04: distention improving. Repeat Abd X-ray inconclusive. 07/03: Tube feeds were stopped and suction started due possibility of partial obstruction. 07/02 Abd xray - fecal impaction, will order another abdominal x- ray. f/u results. Stopped Miralax, Stopped Senna, stopped pepcid. Maintenance fluid: D5/NS @50cc/hr 07/02: Some resolution of distension 07/01: starting Lactulose QID until BM 06/30: Abd x-ray: Fecal impaction present. Consider disimpaction vs. Miralax vs Senna. Start Miralax qHS and Senna q72hrs for suspected constipation. 06/27: bladder scan <15cc urine 06/28: abd u/s findings consistent with fatty hepatic infiltrtaion. There are 2 hepatic calcification nonspecific; r/o prior exposure to a granulomatous disease [pls see full report] baker in place Continue Ditropan 5mg via PEG TID 4) Anoxic encephalopathy Assessment & Plan: no acute changes: continue with q2h turning, therapy, feeds through PEG site and suctioning trach routinely continue to monitor weekly labs Pending placement (5) Respiratory failure Assessment & Plan: 07/13: Continue trach care and suctioning as needed. Continue current management CXR shows atelectasis. Monitor (6) CAD (coronary artery disease) Assessment & Plan: 07/13: Continue current management. s/p cardiac stents on 06/13/15 Continue ASA 81mg via PEG daily Continue Plavix 75mg via PEG daily (7) Seizures Assessment & Plan: 07/13: Continue current management with Dilantin. 07/07: Changed Dilantin 100 mg PED TID to Dilantin 100 mg IVP TID 07/04:Continue Dilantin 100mg via PEG TID Continue seizure precautions Monitor (8) Bed sore Assessment & Plan: 07/13: Continue current management 07/04: New skin 1.5 cm sacral fissure continue wound care bedside monitor 07/03: Continue current management 07/02: Continue wound care Prevalon boots in place to avoid heel ulcer development Continue to turn patient q2hrs Monitor with skin checks <Nathaniel Beth - Last Filed: 07/14/16 22:24> Objective - Vital Signs/Intake and Output Vital Signs (last 24 hours): Temp Pulse Resp BP Pulse Ox 98.5 F 70 20 111/71 100 07/14/16 15:00 07/14/16 15:52 07/14/16 15:00 07/14/16 15:00 07/14/16 15:00 Intake and Output: 07/14/16 07/15/16 18:59 06:59 Output Total 200 Balance -200 - Medications Medications: Current Medications Aspirin (Aspirin Chewable) 81 mg PEG DAILY [facility] Last Admin: 07/14/16 11:55 Dose: 81 mg Clopidogrel Bisulfate (Plavix) 75 mg PEG DAILY [facility] Last Admin: 07/14/16 11:55 Dose: 75 mg Enalapril Maleate (Vasotec) 5 mg PO DAILY [facility] Last Admin: 07/14/16 11:57 Dose: 5 mg Famotidine (Pepcid) 20 mg PEG BID [facility] Last Admin: 07/14/16 17:19 Dose: 20 mg Imipenem/Cilastatin Sodium 500 (mg/ Sodium Chloride) 100 mls @ 100 mls/hr IVPB Q6H [facility] Last Admin: 07/14/16 19:47 Dose: 100 mls/hr Dextrose/Sodium Chloride (Dextrose 5%/0.9% Ns 1000 Ml) 1,000 mls @ 20 mls/hr IV .Q24H [facility] Last Admin: 07/12/16 15:54 Dose: 20 mls/hr Gentamicin Sulfate/Sodium Chloride (Gentamicin 100mg/100ml Ns) 100 mls @ 100 mls/hr IVPB Q24H [facility] Lactulose (Enulose) 20 gm PEG HS [facility] Last Admin: 07/14/16 21:40 Dose: 20 gm Mupirocin (Bactroban Ointment) 0 gm TOP DAILY [facility] Last Admin: 07/14/16 11:58 Dose: 1 applic Phenytoin (Dilantin) 100 mg PEG TID [facility] Last Admin: 07/14/16 17:19 Dose: 100 mg Polyethylene Glycol (Miralax) 17 gm PO QPM [facility] Last Admin: 07/14/16 19:47 Dose: 17 gm - Labs Labs: 07/14/16 11:03 07/14/16 11:03 PT 10.6 SECONDS (9.7-12.2) 11/24/15 14:10 INR 1.0 11/24/15 14:10 APTT 25 SECONDS (21-34) 11/24/15 14:10 Attending/Attestation - Attestation I have personally seen and examined this patient.: Yes I have fully participated in the care of the patient.: Yes I have reviewed all pertinent clinical information, including history, physical exam and plan: Yes Notes (Text): Patient seen and examined; I agree with the resident's assessment and plan as above with the following edits/additions: Patient being treated for UTI and pneumonia with gentamicin and imipenem respectively; ID f/u appreciated; patient with new leukocytosis of unclear etiology; was to get PICC line today due to repeated difficulty with IV access but deferred due to leukocytosis; On tube feeds at 20 cc/hr for 4 hrs alternating with 4 hrs of bowel rest; no reported BM since 2 days; on senna, miralax and lactulose; Hyperactive BS on exam; abdomen soft, non-distended; -Continue abx per ID recs -Increase tube feed to 30 cc/hr -d/c Senna 07/14/16 22:20
[2016-07-14] MEDS: POLYETHYLENE GLYCOL 3350 17 GM/Dose PACKET PO SCH (19:47)
[2016-07-15 08:28] LABS: BASO # 0.1 K/uL (0.0-0.2); BASO % 0.6 % (0.0-2.0); EOS # 0.5 K/uL (0.0-0.7); EOS % 5.1 % (0.0-4.0); HEMOGLOBIN 12.1 g/dL (12.0-18.0); LYMPH # 1.8 K/uL (1.0-4.3); LYMPH % 19.5 % (20.0-40.0); MEAN CELL VOLUME 90.7 fL (80.0-94.0); MEAN CORPUSCULAR HEMOGLOBIN 30.4 pg (27.0-31.0); MEAN CORPUSCULAR HGB CONC 33.5 g/dL (33.0-37.0); MEAN PLATELET VOLUME 7.6 fL (7.2-11.7); MONO # 0.9 K/uL (0.0-0.8); MONO % 9.4 % (0.0-10.0); NEUT % 65.4 % (50.0-75.0); NRBC % 0.2 % (0.0-2.0); RBC 3.98 Mil/uL (4.40-5.90); RED CELL DISTRIBUTION WIDTH 14.9 % (11.5-14.5)
[2016-07-15 08:29] LABS: WHITE BLOOD COUNT 9.1 K/uL (4.8-10.8)
[2016-07-15 08:43] LABS: ALBUMIN 3.6 g/dL (3.5-5.0)
[2016-07-15 08:45] LABS: GFR NON-AFRICAN AMERICAN > 60
[2016-07-15 08:46] LABS: ALB/GLOB RATIO 0.8 (1.0-2.1); ALT/SGPT 81 U/L (21-72); AST/SGOT 36 U/L (17-59); BLOOD UREA NITROGEN 9 mg/dL (9-20); CALCIUM 8.8 mg/dl (8.6-10.4)
[2016-07-15] MEDS: Phenytoin 100 mg/4 ml Oral Susp UD PEG SCH ×3 (09:32→17:22)
--- NOTE | 2016-07-15 10:09 | CP.PCM.PN ---
<Tanya Campos - Last Filed: 07/15/16 14:57> Subjective - Date & Time of Evaluation Date of Evaluation: 07/15/16 Time of Evaluation: 09:00 - Subjective Subjective: PGY-[address] Beth, Patient was seen and examined at bedside. As per nursing, multiple episodes of diarrhea after lactulose dose yesterday, currently on hold. No acute events overnight. Afebrile. Patient continues to be on direct contact isolation for MRDO found in his urine culture. Objective - Vital Signs/Intake and Output Vital Signs (last 24 hours): Temp Pulse Resp BP Pulse Ox 98 F 64 18 112/74 100 07/15/16 08:00 07/15/16 08:00 07/15/16 08:00 07/15/16 09:33 07/15/16 08:00 Intake and Output: 07/15/16 07/15/16 06:59 18:59 Intake Total 640 Output Total 250 Balance 390 - Medications Medications: Current Medications Aspirin (Aspirin Chewable) 81 mg PEG DAILY [facility] Last Admin: 07/15/16 09:31 Dose: 81 mg Clopidogrel Bisulfate (Plavix) 75 mg PEG DAILY [facility] Last Admin: 07/15/16 09:31 Dose: 75 mg Enalapril Maleate (Vasotec) 5 mg PO DAILY [facility] Last Admin: 07/15/16 09:33 Dose: 5 mg Famotidine (Pepcid) 20 mg PEG BID [facility] Last Admin: 07/15/16 09:32 Dose: 20 mg Imipenem/Cilastatin Sodium 500 (mg/ Sodium Chloride) 100 mls @ 100 mls/hr IVPB Q6H [facility] Last Admin: 07/15/16 08:17 Dose: 100 mls/hr Dextrose/Sodium Chloride (Dextrose 5%/0.9% Ns 1000 Ml) 1,000 mls @ 20 mls/hr IV .Q24H [facility] Last Admin: 07/12/16 15:54 Dose: 20 mls/hr Gentamicin Sulfate/Sodium Chloride (Gentamicin 100mg/100ml Ns) 100 mls @ 100 mls/hr IVPB Q24H [facility] Last Admin: 07/15/16 05:00 Dose: 100 mls/hr Lactulose (Enulose) 20 gm PEG HS [facility] Last Admin: 07/14/16 21:40 Dose: 20 gm Mupirocin (Bactroban Ointment) 0 gm TOP DAILY [facility] Last Admin: 07/15/16 09:38 Dose: 1 applic Phenytoin (Dilantin) 100 mg PEG TID [facility] Last Admin: 07/15/16 09:32 Dose: 100 mg Polyethylene Glycol (Miralax) 17 gm PO QPM [facility] Last Admin: 07/14/16 19:47 Dose: 17 gm - Labs Labs: 07/15/16 08:17 07/15/16 08:17 PT 10.6 SECONDS (9.7-12.2) 11/24/15 14:10 INR 1.0 11/24/15 14:10 APTT 25 SECONDS (21-34) 11/24/15 14:10 - Constitutional Appears: No Acute Distress - Head Exam Head Exam: NORMAL INSPECTION, NORMOCEPHALIC - Eye Exam Eye Exam: EOMI - ENT Exam ENT Exam: Mucous Membranes Moist - Neck Exam Additional comments: Trach in place and dressing intact, no discharge noted - Respiratory Exam Respiratory Exam: Clear to Ausculation Bilateral, NORMAL BREATHING PATTERN - Cardiovascular Exam Cardiovascular Exam: REGULAR RHYTHM, RRR - GI/Abdominal Exam GI & Abdominal Exam: Soft, Normal Bowel Sounds. absent: Tenderness - Extremities Exam Extremities Exam: Normal Inspection. absent: Pedal Edema, Tenderness - Back Exam Back Exam: NORMAL INSPECTION - Neurological Exam Additional comments: PT does not respond to verbal stimuli. Grimaces to painful stimuli - Skin Skin Exam: Dry, Intact, Normal Color, Warm Assessment and Plan - Assessment and Plan (Free Text) Plan: 1) Upper GI bleed Assessment & Plan: Tube feeds increased to 40cc/hr (4 hours on, 4 hours off, repeat) GI consulted: Dr. Fermin, Appreciate recs: No melena, or overt rectal bleeding, H/H stable. May reconsult as necessary Cleared to start ASA and Plavix. H&H stable Protonix 40 mg IVP BID, consider changing to PO Monitor 2) Hypokalemia-resolved Assessment & Plan: 3) Abdominal Distension Assessment & Plan: 07/15: Gentamicin and Primaxin were DC today. No PICC line needed. Increased feeding to 40cc/hr (4hr on, 4hr off). 07/14: Nursing reports 2 BMs on 07/12. Hyperactive bowel sounds. Will d/c senna. Lactulose was held. Continue with Miralax 17g PEG qHS ID on case, Dr. Walden - rx in progress, adjust gentamicin to 100mg q24, Primaxin IVPB Q6H Prior: Still no BM. Miralax 17g PEG qNight. Senna syrup 5ml PEG BID, will reduce senna regimen to every 3rd day once patient has a BM 07/09: colace tid, lactulose once at night 07/07: Stopped feeds and PEG medications due to coffee ground emesis via PEG. 07/06: Feeds will be resume at 10cc/hr for 4 hours then off 4 hours ( intermittent trickle feeding) 07/05: Continue current management 07/04: distention improving. Repeat Abd X-ray inconclusive. 07/03: Tube feeds were stopped and suction started due possibility of partial obstruction. 07/02 Abd xray - fecal impaction, will order another abdominal x- ray. f/u results. Stopped Miralax, Stopped Senna, stopped pepcid. Maintenance fluid: D5/NS @50cc/hr 07/02: Some resolution of distension 07/01: starting Lactulose QID until BM 06/30: Abd x-ray: Fecal impaction present. Consider disimpaction vs. Miralax vs Senna. Start Miralax qHS and Senna q72hrs for suspected constipation. 06/27: bladder scan <15cc urine 06/28: abd u/s findings consistent with fatty hepatic infiltrtaion. There are 2 hepatic calcification nonspecific; r/o prior exposure to a granulomatous disease [pls see full report] baker in place Continue Ditropan 5mg via PEG TID 4) Anoxic encephalopathy Assessment & Plan: no acute changes: continue with q2h turning, therapy, feeds through PEG site and suctioning trach routinely continue to monitor weekly labs Pending placement (5) Respiratory failure Assessment & Plan: 07/15: Continue trach care and suctioning as needed. Continue current management CXR shows atelectasis. Monitor (6) CAD (coronary artery disease) Assessment & Plan: 07/15: Continue current management. s/p cardiac stents on 06/13/15 Continue ASA 81mg via PEG daily Continue Plavix 75mg via PEG daily (7) Seizures Assessment & Plan: 07/15: Continue current management with Dilantin. 07/07: Changed Dilantin 100 mg PED TID to Dilantin 100 mg IVP TID 07/04:Continue Dilantin 100mg via PEG TID Continue seizure precautions Monitor (8) Bed sore Assessment & Plan: 07/15: Continue current management 07/04: New skin 1.5 cm sacral fissure continue wound care bedside monitor 07/03: Continue current management 07/02: Continue wound care Prevalon boots in place to avoid heel ulcer development Continue to turn patient q2hrs Monitor with skin checks DW Beth Modi DO, PGY-1 <Nathaniel Beth - Last Filed: 07/16/16 08:34> Objective - Vital Signs/Intake and Output Vital Signs (last 24 hours): Temp Pulse Resp BP Pulse Ox 97.6 F 76 20 113/77 99 07/16/16 00:58 07/16/16 00:58 07/16/16 00:58 07/16/16 00:58 07/16/16 00:58 Intake and Output: 07/16/16 07/16/16 06:59 18:59 Intake Total 780 Output Total 1200 Balance -420 - Medications Medications: Current Medications Aspirin (Aspirin Chewable) 81 mg PEG DAILY [facility] Last Admin: 07/15/16 09:31 Dose: 81 mg Clopidogrel Bisulfate (Plavix) 75 mg PEG DAILY [facility] Last Admin: 07/15/16 09:31 Dose: 75 mg Enalapril Maleate (Vasotec) 5 mg PO DAILY [facility] Last Admin: 07/15/16 09:33 Dose: 5 mg Famotidine (Pepcid) 20 mg PEG BID [facility] Last Admin: 07/15/16 17:25 Dose: 20 mg Dextrose/Sodium Chloride (Dextrose 5%/0.9% Ns 1000 Ml) 1,000 mls @ 20 mls/hr IV .Q24H [facility] Last Admin: 07/12/16 15:54 Dose: 20 mls/hr Lactulose (Enulose) 20 gm PEG HS [facility] Last Admin: 07/14/16 21:40 Dose: 20 gm Mupirocin (Bactroban Ointment) 0 gm TOP DAILY [facility] Last Admin: 07/15/16 09:38 Dose: 1 applic Phenytoin (Dilantin) 100 mg PEG TID [facility] Last Admin: 07/15/16 17:22 Dose: 100 mg Polyethylene Glycol (Miralax) 17 gm PO QPM [facility] Last Admin: 07/15/16 17:23 Dose: 17 gm Potassium Chloride (Potassium Chloride Oral Soln) 40 meq PEG ONCE ONE Stop: 07/16/16 10:01 - Labs Labs: 07/15/16 08:17 07/16/16 06:38 PT 10.6 SECONDS (9.7-12.2) 11/24/15 14:10 INR 1.0 11/24/15 14:10 APTT 25 SECONDS (21-34) 11/24/15 14:10 Attending/Attestation - Attestation I have personally seen and examined this patient.: Yes I have fully participated in the care of the patient.: Yes I have reviewed all pertinent clinical information, including history, physical exam and plan: Yes Notes (Text): Patient seen and examined; I agree with the resident's assessment and plan as above with the following additions/edits: Patient with > 1 yr hospital course, remains vent dependent, anoxic brain injury , cannot be placed at a subacute facility for now; Completed 7 days of gentamicin and imipenem today for Klebsiella and Pseudonomas PNA as well as Proteus UTI; Leukocytosis seen yesterday now resolved; 1.5 cm linear sacral ulcer with necrotic debris, otherwise not erythematous; Tolerating tube feeds at 30 cc/hr; constipation has transformed to diarrhea; will hold lactulose; continue miralax; increase tube feeds to 40 cc/hr;
[2016-07-15] MEDS: POLYETHYLENE GLYCOL 3350 17 GM/Dose PACKET PO SCH (17:23)
[2016-07-16 07:01] LABS: ALBUMIN 3.6 g/dL (3.5-5.0)
[2016-07-16 07:04] LABS: ALB/GLOB RATIO 0.8 (1.0-2.1); ALT/SGPT 72 U/L (21-72); AST/SGOT 54 U/L (17-59); BLOOD UREA NITROGEN 9 mg/dL (9-20); GFR NON-AFRICAN AMERICAN > 60
[2016-07-16 07:05] LABS: CALCIUM 8.9 mg/dl (8.6-10.4)
[2016-07-16] MEDS: Phenytoin 100 mg/4 ml Oral Susp UD PEG SCH ×3 (10:39→18:03)
--- NOTE | 2016-07-16 13:44 | CP.PCM.PN ---
Subjective - Date & Time of Evaluation Date of Evaluation: 07/16/16 Time of Evaluation: 08:00 - Subjective Subjective: PGY-[address] Beth, Patient was seen and examined at bedside. As per nursing, no bowel movements today, currently resumed Miralax. No acute events overnight. Afebrile. Patient continues to be on direct contact isolation for MRDO found in his urine culture. Objective - Vital Signs/Intake and Output Vital Signs (last 24 hours): Temp Pulse Resp BP Pulse Ox 97.6 F 76 20 116/81 99 07/16/16 00:58 07/16/16 00:58 07/16/16 00:58 07/16/16 10:39 07/16/16 00:58 Intake and Output: 07/16/16 07/16/16 06:59 18:59 Intake Total 780 Output Total 1200 Balance -420 - Medications Medications: Current Medications Aspirin (Aspirin Chewable) 81 mg PEG DAILY [facility] [place] Last Admin: 07/16/16 10:39 Dose: 81 mg Clopidogrel Bisulfate (Plavix) 75 mg PEG DAILY [facility] [place] Last Admin: 07/16/16 10:39 Dose: 75 mg Enalapril Maleate (Vasotec) 5 mg PO DAILY [facility] [place] Last Admin: 07/16/16 10:39 Dose: 5 mg Famotidine (Pepcid) 20 mg PEG BID [facility] [place] Last Admin: 07/16/16 10:40 Dose: 20 mg Dextrose/Sodium Chloride (Dextrose 5%/0.9% Ns 1000 Ml) 1,000 mls @ 20 mls/hr IV .Q24H [facility] Last Admin: 07/12/16 15:54 Dose: 20 mls/hr Lactulose (Enulose) 20 gm PEG HS [facility] Last Admin: 07/14/16 21:40 Dose: 20 gm Mupirocin (Bactroban Ointment) 0 gm TOP DAILY [facility] [place] Last Admin: 07/16/16 10:40 Dose: 1 applic Phenytoin (Dilantin) 100 mg PEG TID [facility] [place] Last Admin: 07/16/16 10:39 Dose: 100 mg Polyethylene Glycol (Miralax) 17 gm PO QPM [facility] [place] Last Admin: 07/15/16 17:23 Dose: 17 gm - Labs Labs: 07/15/16 08:17 07/16/16 06:38 PT 10.6 SECONDS (9.7-12.2) 11/24/15 14:10 INR 1.0 11/24/15 14:10 APTT 25 SECONDS (21-34) 11/24/15 14:10 - Constitutional Appears: No Acute Distress - Head Exam Head Exam: NORMAL INSPECTION, NORMOCEPHALIC - Eye Exam Eye Exam: EOMI - ENT Exam ENT Exam: Mucous Membranes Moist - Neck Exam Additional comments: Trach in place and dressing intact, no discharge noted - Respiratory Exam Respiratory Exam: Clear to Ausculation Bilateral, NORMAL BREATHING PATTERN - Cardiovascular Exam Cardiovascular Exam: REGULAR RHYTHM, RRR - GI/Abdominal Exam GI & Abdominal Exam: Soft, Normal Bowel Sounds. absent: Tenderness - Extremities Exam Extremities Exam: Normal Inspection. absent: Pedal Edema, Tenderness Additional comments: Prevalon boots in place to avoid heel ulcer development - Neurological Exam Additional comments: PT does not respond to verbal stimuli. Grimaces to painful stimuli - Skin Skin Exam: Dry, Intact, Normal Color, Warm Assessment and Plan - Assessment and Plan (Free Text) Plan: 1) Upper GI bleed Assessment & Plan: Tube feeds maintained at 40cc/hr (4 hours on, 4 hours off, repeat) GI consulted: Dr. Fermin, Appreciate recs: No melena, or overt rectal bleeding, H/H stable. May reconsult as necessary Cleared to start ASA and Plavix. H&H stable Protonix 40 mg IVP BID, consider changing to PO Monitor 2) Hypokalemia 3.5 KCL 40 MEQ solution was given. Recheck BMP Assessment & Plan: 3) Abdominal Distension Assessment & Plan: 07/16: Tube feedings resumed at 40cc/hr (4hr on, 4hr off). Continue with Miralax 17g PEG qHS 07/15: Gentamicin and Primaxin were DC today. No PICC line needed. Increased feeding to 40cc/hr (4hr on, 4hr off). 07/14: Nursing reports 2 BMs on 07/12. Hyperactive bowel sounds. Will d/c senna. Lactulose was held. Continue with Miralax 17g PEG qHS ID on case, Dr. Walden - rx in progress, adjust gentamicin to 100mg q24, Primaxin IVPB Q6H Prior: Still no BM. Miralax 17g PEG qNight. Senna syrup 5ml PEG BID, will reduce senna regimen to every 3rd day once patient has a BM 07/09: colace tid, lactulose once at night 07/07: Stopped feeds and PEG medications due to coffee ground emesis via PEG. 07/06: Feeds will be resume at 10cc/hr for 4 hours then off 4 hours ( intermittent trickle feeding) 07/05: Continue current management 07/04: distention improving. Repeat Abd X-ray inconclusive. 07/03: Tube feeds were stopped and suction started due possibility of partial obstruction. 07/02 Abd xray - fecal impaction, will order another abdominal x- ray. f/u results. Stopped Miralax, Stopped Senna, stopped pepcid. Maintenance fluid: D5/NS @50cc/hr 07/02: Some resolution of distension 07/01: starting Lactulose QID until BM 06/30: Abd x-ray: Fecal impaction present. Consider disimpaction vs. Miralax vs Senna. Start Miralax qHS and Senna q72hrs for suspected constipation. 06/27: bladder scan <15cc urine 06/28: abd u/s findings consistent with fatty hepatic infiltrtaion. There are 2 hepatic calcification nonspecific; r/o prior exposure to a granulomatous disease [pls see full report] baker in place Continue Ditropan 5mg via PEG TID 4) Anoxic encephalopathy Assessment & Plan: no acute changes: continue with q2h turning, therapy, feeds through PEG site and suctioning trach routinely continue to monitor weekly labs Pending placement (5) Respiratory failure Assessment & Plan: 07/15: Continue trach care and suctioning as needed. Continue current management CXR shows atelectasis. Monitor (6) CAD (coronary artery disease) Assessment & Plan: 07/16: Continue current management. s/p cardiac stents on 06/13/15 Continue ASA 81mg via PEG daily Continue Plavix 75mg via PEG daily (7) Seizures Assessment & Plan: 07/16: Continue current management with Dilantin. 07/07: Changed Dilantin 100 mg PED TID to Dilantin 100 mg IVP TID 07/04:Continue Dilantin 100mg via PEG TID Continue seizure precautions Monitor (8) Bed sore Assessment & Plan: 07/16: Continue current management 07/04: New skin 1.5 cm sacral fissure continue wound care bedside monitor 07/03: Continue current management 07/02: Continue wound care Prevalon boots in place to avoid heel ulcer development Continue to turn patient q2hrs Monitor with skin checks DW Beth Modi DO, PGY-1
[2016-07-16] MEDS: Dextrose 5%/0.9% NS 1,000 ML IV SCH (15:56)
--- NOTE | 2016-07-16 18:00 | CP.PCM.PN ---
Subjective - Date & Time of Evaluation Date of Evaluation: 07/16/16 Time of Evaluation: 09:00 - Subjective Subjective: iv rx completed afeb/nad no change in exam Objective - Vital Signs/Intake and Output Vital Signs (last 24 hours): Temp Pulse Resp BP Pulse Ox 97.3 F L 66 20 106/68 100 07/16/16 17:22 07/16/16 17:22 07/16/16 17:22 07/16/16 17:22 07/16/16 17:22 Intake and Output: 07/16/16 07/16/16 06:59 18:59 Intake Total 780 520 Output Total 1200 200 Balance -420 320 - Medications Medications: Current Medications Aspirin (Aspirin Chewable) 81 mg PEG DAILY [facility] Last Admin: 07/16/16 10:39 Dose: 81 mg Clopidogrel Bisulfate (Plavix) 75 mg PEG DAILY [facility] Last Admin: 07/16/16 10:39 Dose: 75 mg Enalapril Maleate (Vasotec) 5 mg PO DAILY [facility] Last Admin: 07/16/16 10:39 Dose: 5 mg Famotidine (Pepcid) 20 mg PEG BID [facility] Last Admin: 07/16/16 10:40 Dose: 20 mg Dextrose/Sodium Chloride (Dextrose 5%/0.9% Ns 1000 Ml) 1,000 mls @ 20 mls/hr IV .Q24H [facility] Last Admin: 07/16/16 15:56 Dose: 20 mls/hr Lactulose (Enulose) 20 gm PEG HS [facility] Last Admin: 07/14/16 21:40 Dose: 20 gm Mupirocin (Bactroban Ointment) 0 gm TOP DAILY [facility] Last Admin: 07/16/16 10:40 Dose: 1 applic Phenytoin (Dilantin) 100 mg PEG TID [facility] Last Admin: 07/16/16 14:25 Dose: 100 mg Polyethylene Glycol (Miralax) 17 gm PO QPM [facility] Last Admin: 07/15/16 17:23 Dose: 17 gm - Labs Labs: 07/15/16 08:17 07/16/16 06:38 PT 10.6 SECONDS (9.7-12.2) 11/24/15 14:10 INR 1.0 11/24/15 14:10 APTT 25 SECONDS (21-34) 11/24/15 14:10 - Constitutional Appears: Chronically Ill - Eye Exam Eye Exam: absent: Scleral icterus - ENT Exam ENT Exam: Mucous Membranes Dry - Neck Exam Neck Exam: absent: Lymphadenopathy - Respiratory Exam Respiratory Exam: Decreased Breath Sounds, Rhonchi - Cardiovascular Exam Cardiovascular Exam: REGULAR RHYTHM, +S1, +S2 - GI/Abdominal Exam GI & Abdominal Exam: Distended, Soft
--- NOTE | 2016-07-17 07:24 | CP.PCM.PN ---
Subjective - Date & Time of Evaluation Date of Evaluation: 07/17/16 Time of Evaluation: 08:00 - Subjective Subjective: PGY-[address] Beth, Patient was seen and examined at bedside. No acute events overnight. Afebrile. As per nursing, 2 bowel movements yesterday, resumed Miralax. Patient continues to be on direct contact isolation for MRDO found in his urine culture. Objective - Vital Signs/Intake and Output Vital Signs (last 24 hours): Temp Pulse Resp BP Pulse Ox 98.6 F 86 20 123/72 100 07/17/16 00:00 07/17/16 00:00 07/17/16 00:00 07/17/16 00:00 07/17/16 00:00 Intake and Output: 07/17/16 07/17/16 06:59 18:59 Intake Total 940 Output Total 550 Balance 390 - Medications Medications: Current Medications Aspirin (Aspirin Chewable) 81 mg PEG DAILY [facility] Last Admin: 07/16/16 10:39 Dose: 81 mg Clopidogrel Bisulfate (Plavix) 75 mg PEG DAILY [facility] Last Admin: 07/16/16 10:39 Dose: 75 mg Enalapril Maleate (Vasotec) 5 mg PO DAILY [facility] Last Admin: 07/16/16 10:39 Dose: 5 mg Famotidine (Pepcid) 20 mg PEG BID [facility] Last Admin: 07/16/16 18:03 Dose: 20 mg Dextrose/Sodium Chloride (Dextrose 5%/0.9% Ns 1000 Ml) 1,000 mls @ 20 mls/hr IV .Q24H [facility] Last Admin: 07/16/16 15:56 Dose: 20 mls/hr Lactulose (Enulose) 20 gm PEG HS [facility] Last Admin: 07/14/16 21:40 Dose: 20 gm Mupirocin (Bactroban Ointment) 0 gm TOP DAILY [facility] Last Admin: 07/16/16 10:40 Dose: 1 applic Phenytoin (Dilantin) 100 mg PEG TID [facility] Last Admin: 07/16/16 18:03 Dose: 100 mg Polyethylene Glycol (Miralax) 17 gm PO QPM [facility] Last Admin: 07/15/16 17:23 Dose: 17 gm - Labs Labs: 07/15/16 08:17 07/16/16 06:38 PT 10.6 SECONDS (9.7-12.2) 11/24/15 14:10 INR 1.0 11/24/15 14:10 APTT 25 SECONDS (21-34) 11/24/15 14:10 - Constitutional Appears: No Acute Distress - Head Exam Head Exam: NORMAL INSPECTION, NORMOCEPHALIC - Eye Exam Eye Exam: EOMI - ENT Exam ENT Exam: Mucous Membranes Moist - Respiratory Exam Respiratory Exam: Clear to Ausculation Bilateral, NORMAL BREATHING PATTERN. absent: Wheezes - Cardiovascular Exam Cardiovascular Exam: REGULAR RHYTHM, RRR, +S1, +S2. absent: Murmur - GI/Abdominal Exam GI & Abdominal Exam: Soft, Normal Bowel Sounds. absent: Tenderness - Extremities Exam Additional comments: Prevalon boots in place to avoid heel ulcer development - Neurological Exam Additional comments: PT does not respond to verbal stimuli. Grimaces to painful stimuli - Skin Skin Exam: Dry, Intact, Normal Color, Warm Assessment and Plan - Assessment and Plan (Free Text) Plan: 1) Upper GI bleed Assessment & Plan: Tube feeds maintained at 40cc/hr (4 hours on, 4 hours off, repeat), no residual GI consulted: Dr. Fermin, Appreciate recs: No melena, or overt rectal bleeding, H/H stable. May reconsult as necessary Cleared to start ASA and Plavix. H&H stable Protonix 40 mg IVP BID, consider changing to PO Monitor 2) Hypokalemia Recheck BMP Assessment & Plan: 3) Abdominal Distension Assessment & Plan: 07/17: Maintenance fluid: D5/NS @20cc/hr was DC; Continue feedings 07/16: Tube feedings resumed at 40cc/hr (4hr on, 4hr off). Continue with Miralax 17g PEG qHS 07/15: Gentamicin and Primaxin were DC today. No PICC line needed. Increased feeding to 40cc/hr (4hr on, 4hr off). 07/14: Nursing reports 2 BMs on 07/12. Hyperactive bowel sounds. Will d/c senna. Lactulose was held. Continue with Miralax 17g PEG qHS ID on case, Dr. Walden - rx in progress, adjust gentamicin to 100mg q24, Primaxin IVPB Q6H Prior: Still no BM. Miralax 17g PEG qNight. Senna syrup 5ml PEG BID, will reduce senna regimen to every 3rd day once patient has a BM 07/09: colace tid, lactulose once at night 07/07: Stopped feeds and PEG medications due to coffee ground emesis via PEG. 07/06: Feeds will be resume at 10cc/hr for 4 hours then off 4 hours ( intermittent trickle feeding) 07/05: Continue current management 07/04: distention improving. Repeat Abd X-ray inconclusive. 07/03: Tube feeds were stopped and suction started due possibility of partial obstruction. 07/02 Abd xray - fecal impaction, will order another abdominal x- ray. f/u results. Stopped Miralax, Stopped Senna, stopped pepcid. 07/02: Some resolution of distension 07/01: starting Lactulose QID until BM 06/30: Abd x-ray: Fecal impaction present. Consider disimpaction vs. Miralax vs Senna. Start Miralax qHS and Senna q72hrs for suspected constipation. 06/27: bladder scan <15cc urine 06/28: abd u/s findings consistent with fatty hepatic infiltrtaion. There are 2 hepatic calcification nonspecific; r/o prior exposure to a granulomatous disease [pls see full report] baker in place Continue Ditropan 5mg via PEG TID 4) Anoxic encephalopathy Assessment & Plan: no acute changes: continue with q2h turning, therapy, feeds through PEG site and suctioning trach routinely continue to monitor weekly labs Pending placement (5) Respiratory failure Assessment & Plan: 07/17: Trach culture grew gram negative rods- Pending Dr. Walden recommendations. Continue trach care and suctioning as needed. Continue current management CXR shows atelectasis. Monitor (6) CAD (coronary artery disease) Assessment & Plan: 07/17: Continue current management. s/p cardiac stents on 06/13/15 Continue ASA 81mg via PEG daily Continue Plavix 75mg via PEG daily (7) Seizures Assessment & Plan: 07/17: Continue current management with Dilantin. 07/07: Changed Dilantin 100 mg PED TID to Dilantin 100 mg IVP TID 07/04:Continue Dilantin 100mg via PEG TID Continue seizure precautions Monitor (8) Bed sore Assessment & Plan: 07/17: Continue current management 07/04: New skin 1.5 cm sacral fissure continue wound care bedside monitor 07/03: Continue current management 07/02: Continue wound care Prevalon boots in place to avoid heel ulcer development Continue to turn patient q2hrs Monitor with skin checks DW Beth Modi DO, PGY-1
[2016-07-17 07:46] LABS: BASO % 0.8 % (0.0-2.0); EOS # 0.4 K/uL (0.0-0.7); EOS % 6.9 % (0.0-4.0); HEMOGLOBIN 12.3 g/dL (12.0-18.0); LYMPH # 1.5 K/uL (1.0-4.3); LYMPH % 24.6 % (20.0-40.0); MEAN CELL VOLUME 90.3 fL (80.0-94.0); MEAN CORPUSCULAR HEMOGLOBIN 30.4 pg (27.0-31.0); MEAN CORPUSCULAR HGB CONC 33.7 g/dL (33.0-37.0); MEAN PLATELET VOLUME 7.8 fL (7.2-11.7); MONO # 0.7 K/uL (0.0-0.8); MONO % 11.3 % (0.0-10.0); NEUT # 3.5 K/uL (1.8-7.0); NEUT % 56.4 % (50.0-75.0); NRBC % 0.1 % (0.0-2.0); RBC 4.04 Mil/uL (4.40-5.90); RED CELL DISTRIBUTION WIDTH 14.9 % (11.5-14.5); WHITE BLOOD COUNT 6.2 K/uL (4.8-10.8)
[2016-07-17] MEDS: Phenytoin 100 mg/4 ml Oral Susp UD PEG SCH ×3 (10:23→18:05)
[2016-07-17 11:58] LABS: PHENYTOIN,FREE <0.5 mg/L (1.0-2.0)
[2016-07-17] MEDS: POLYETHYLENE GLYCOL 3350 17 GM/Dose PACKET PO SCH (18:05)
[2016-07-18] MEDS: Phenytoin 100 mg/4 ml Oral Susp UD PEG SCH ×3 (10:55→18:11)
--- NOTE | 2016-07-18 12:50 | CP.PCM.PN ---
<Tanya Campos - Last Filed: 07/18/16 12:50> Subjective - Date & Time of Evaluation Date of Evaluation: 07/18/16 Time of Evaluation: 07:00 - Subjective Subjective: PGY-[address] Beth, Patient was seen and examined at bedside. No acute events overnight. Afebrile. Baker was DC. Order was placed for [place] catheter. Patient continues to be on direct contact isolation for MRDO found in his urine culture. Objective - Vital Signs/Intake and Output Vital Signs (last 24 hours): Temp Pulse Resp BP Pulse Ox 98 F 87 20 105/71 100 07/18/16 07:00 07/18/16 07:00 07/18/16 07:00 07/18/16 10:53 07/18/16 07:00 Intake and Output: 07/18/16 07/18/16 06:59 18:59 Intake Total 570 Output Total 550 Balance 20 - Medications Medications: Current Medications Aspirin (Aspirin Chewable) 81 mg PEG DAILY [facility] Last Admin: 07/18/16 10:52 Dose: 81 mg Clopidogrel Bisulfate (Plavix) 75 mg PEG DAILY [facility] Last Admin: 07/18/16 10:53 Dose: 75 mg Enalapril Maleate (Vasotec) 5 mg PO DAILY [facility] Last Admin: 07/18/16 10:53 Dose: 5 mg Famotidine (Pepcid) 20 mg PEG BID [facility] Last Admin: 07/18/16 10:53 Dose: 20 mg Lactulose (Enulose) 20 gm PEG HS [facility] Last Admin: 07/14/16 21:40 Dose: 20 gm Mupirocin (Bactroban Ointment) 0 gm TOP DAILY [facility] Last Admin: 07/18/16 10:54 Dose: 1 applic Phenytoin (Dilantin) 100 mg PEG TID [facility] Last Admin: 07/18/16 10:55 Dose: 100 mg Polyethylene Glycol (Miralax) 17 gm PO QPM [facility] Last Admin: 07/17/16 18:05 Dose: 17 gm - Labs Labs: 07/17/16 07:37 07/16/16 06:38 PT 10.6 SECONDS (9.7-12.2) 11/24/15 14:10 INR 1.0 11/24/15 14:10 APTT 25 SECONDS (21-34) 11/24/15 14:10 - Constitutional Appears: No Acute Distress - Head Exam Head Exam: NORMAL INSPECTION, NORMOCEPHALIC - Eye Exam Eye Exam: EOMI - ENT Exam ENT Exam: Mucous Membranes Moist - Neck Exam Additional comments: Trach in place and dressing intact, no discharge noted - Respiratory Exam Respiratory Exam: Clear to Ausculation Bilateral, NORMAL BREATHING PATTERN. absent: Wheezes - Cardiovascular Exam Cardiovascular Exam: REGULAR RHYTHM, RRR, +S1, +S2. absent: Murmur - GI/Abdominal Exam GI & Abdominal Exam: Soft, Normal Bowel Sounds. absent: Distended, Tenderness - Rectal Exam Rectal Exam: Deferred - Extremities Exam Extremities Exam: Normal Inspection. absent: Pedal Edema, Tenderness Additional comments: Prevalon boots in place to avoid heel ulcer development - Neurological Exam Additional comments: PT does not respond to verbal stimuli. Grimaces to painful stimuli - Skin Skin Exam: Dry, Intact, Normal Color, Warm Assessment and Plan - Assessment and Plan (Free Text) Plan: 1) Upper GI bleed Assessment & Plan: Tube feeds maintained at 40cc/hr (4 hours on, 4 hours off, repeat), no residual F/U Trach culture GI consulted: Dr. Fermin, Appreciate recs: No melena, or overt rectal bleeding, H/H stable. May reconsult as necessary Cleared to start ASA and Plavix. H&H stable Monitor 2) Hypokalemia Recheck BMP Assessment & Plan: 3) Abdominal Distension Assessment & Plan: 07/18: Continue feedings. Continue with Miralax 17g PEG qHS 07/17: Maintenance fluid: D5/NS @20cc/hr was DC; Continue feedings 07/16: Tube feedings resumed at 40cc/hr (4hr on, 4hr off). Continue with Miralax 17g PEG qHS 07/15: Gentamicin and Primaxin were DC today. No PICC line needed. Increased feeding to 40cc/hr (4hr on, 4hr off). 07/14: Nursing reports 2 BMs on 07/12. Hyperactive bowel sounds. Will d/c senna. Lactulose was held. Continue with Miralax 17g PEG qHS ID on case, Dr. Walden - rx in progress, adjust gentamicin to 100mg q24, Primaxin IVPB Q6H Prior: Still no BM. Miralax 17g PEG qNight. Senna syrup 5ml PEG BID, will reduce senna regimen to every 3rd day once patient has a BM 07/09: colace tid, lactulose once at night 07/07: Stopped feeds and PEG medications due to coffee ground emesis via PEG. 07/06: Feeds will be resume at 10cc/hr for 4 hours then off 4 hours ( intermittent trickle feeding) 07/05: Continue current management 07/04: distention improving. Repeat Abd X-ray inconclusive. 07/03: Tube feeds were stopped and suction started due possibility of partial obstruction. 07/02 Abd xray - fecal impaction, will order another abdominal x- ray. f/u results. Stopped Miralax, Stopped Senna, stopped pepcid. 07/02: Some resolution of distension 07/01: starting Lactulose QID until BM 06/30: Abd x-ray: Fecal impaction present. Consider disimpaction vs. Miralax vs Senna. Start Miralax qHS and Senna q72hrs for suspected constipation. 06/27: bladder scan <15cc urine 06/28: abd u/s findings consistent with fatty hepatic infiltrtaion. There are 2 hepatic calcification nonspecific; r/o prior exposure to a granulomatous disease [pls see full report] baker in place Continue Ditropan 5mg via PEG TID 4) Anoxic encephalopathy Assessment & Plan: no acute changes: continue with q2h turning, therapy, feeds through PEG site and suctioning trach routinely continue to monitor weekly labs Pending placement (5) Respiratory failure Assessment & Plan: 07/17: Trach culture grew gram negative rods- Pending Dr. Walden recommendations. Continue trach care and suctioning as needed. Continue current management CXR shows atelectasis. Monitor (6) CAD (coronary artery disease) Assessment & Plan: 07/17: Continue current management. s/p cardiac stents on 06/13/15 Continue ASA 81mg via PEG daily Continue Plavix 75mg via PEG daily (7) Seizures Assessment & Plan: 07/17: Continue current management with Dilantin. 07/07: Changed Dilantin 100 mg PED TID to Dilantin 100 mg IVP TID 07/04:Continue Dilantin 100mg via PEG TID Continue seizure precautions Monitor (8) Bed sore Assessment & Plan: 07/18: bed sore looks resolved 07/17: Continue current management 07/04: New skin 1.5 cm sacral fissure continue wound care bedside monitor 07/03: Continue current management 07/02: Continue wound care Prevalon boots in place to avoid heel ulcer development Continue to turn patient q2hrs Monitor with skin checks DW Dr. Beth, Beth DE LA CRUZ, PGY-1 <Nathaniel Beth - Last Filed: 07/19/16 15:24> Objective - Vital Signs/Intake and Output Vital Signs (last 24 hours): Temp Pulse Resp BP Pulse Ox 98.8 F 71 20 116/66 100 07/19/16 08:00 07/19/16 08:00 07/19/16 08:00 07/19/16 10:38 07/19/16 08:00 Intake and Output: 07/19/16 07/19/16 06:59 18:59 Intake Total 310 Output Total 450 Balance -140 - Medications Medications: Current Medications Aspirin (Aspirin Chewable) 81 mg PEG DAILY [facility] Last Admin: 07/19/16 10:38 Dose: 81 mg Clopidogrel Bisulfate (Plavix) 75 mg PEG DAILY [facility] Last Admin: 07/19/16 10:38 Dose: 75 mg Enalapril Maleate (Vasotec) 5 mg PO DAILY [facility] Last Admin: 07/19/16 10:38 Dose: 5 mg Famotidine (Pepcid) 20 mg PEG BID [facility] Last Admin: 07/19/16 10:38 Dose: 20 mg Lactulose (Enulose) 20 gm PEG HS [facility] Last Admin: 07/14/16 21:40 Dose: 20 gm Mupirocin (Bactroban Ointment) 0 gm TOP DAILY [facility] Last Admin: 07/19/16 10:39 Dose: 1 applic Phenytoin (Dilantin) 100 mg PEG TID [facility] Last Admin: 07/19/16 15:01 Dose: 100 mg Polyethylene Glycol (Miralax) 17 gm PO QPM [facility] Last Admin: 07/18/16 18:11 Dose: 17 gm - Labs Labs: 07/19/16 08:58 07/19/16 08:58 PT 10.6 SECONDS (9.7-12.2) 11/24/15 14:10 INR 1.0 11/24/15 14:10 APTT 25 SECONDS (21-34) 11/24/15 14:10 Attending/Attestation - Attestation I have personally seen and examined this patient.: Yes I have fully participated in the care of the patient.: Yes I have reviewed all pertinent clinical information, including history, physical exam and plan: Yes Notes (Text): Patient seen and examined; I agree with the resident's assessment/plan as above with the following edits: Patient with very prolonged hospital course following anoxic brain injury (here sine 05/2015); s/p aspiration pneumonia over 2 weeks ago; s/p UTI treatment last week; No acute issues; no sacral ulcer on exam today (vertical fissure described last week not present); Patient tolerating PEG tube feeds at 40 cc/hr (for 4 hours at a time followed by 4 hour rest), no significant residual feed volumes; BP on lower side of normal after stopping IVF; will monitor. -d/c baker and change to condom catheter to avoid infection
[2016-07-18] MEDS: POLYETHYLENE GLYCOL 3350 17 GM/Dose PACKET PO SCH (18:11)
--- NOTE | 2016-07-19 05:30 | CP.PCM.PN ---
<Geoffrey Liu - Last Filed: 07/19/16 05:26> Subjective - Date & Time of Evaluation Date of Evaluation: 07/19/16 Time of Evaluation: 05:26 - Subjective Subjective: PGY1 Medicine note. Dr. Beth service. \ Pt seen and evaluated at bedside. No acute events overnight. Patient now has a condom cath placed. No vomiting. no respiratory distress. Afebrile. Contact isolation for MDRO in urine culture. Objective - Vital Signs/Intake and Output Vital Signs (last 24 hours): Temp Pulse Resp BP Pulse Ox 98.4 F 95 H 20 105/64 98 07/19/16 00:03 07/19/16 00:03 07/19/16 00:03 07/19/16 00:03 07/19/16 00:03 Intake and Output: 07/18/16 07/19/16 18:59 06:59 Intake Total 360 310 Output Total 350 450 Balance 10 -140 - Medications Medications: Current Medications Aspirin (Aspirin Chewable) 81 mg PEG DAILY [facility] Last Admin: 07/18/16 10:52 Dose: 81 mg Clopidogrel Bisulfate (Plavix) 75 mg PEG DAILY [facility] Last Admin: 07/18/16 10:53 Dose: 75 mg Enalapril Maleate (Vasotec) 5 mg PO DAILY [facility] Last Admin: 07/18/16 10:53 Dose: 5 mg Famotidine (Pepcid) 20 mg PEG BID [facility] Last Admin: 07/18/16 18:11 Dose: 20 mg Lactulose (Enulose) 20 gm PEG HS [facility] Last Admin: 07/14/16 21:40 Dose: 20 gm Mupirocin (Bactroban Ointment) 0 gm TOP DAILY [facility] Last Admin: 07/18/16 10:54 Dose: 1 applic Phenytoin (Dilantin) 100 mg PEG TID [facility] Last Admin: 07/18/16 18:11 Dose: 100 mg Polyethylene Glycol (Miralax) 17 gm PO QPM [facility] Last Admin: 07/18/16 18:11 Dose: 17 gm - Labs Labs: 07/17/16 07:37 07/16/16 06:38 PT 10.6 SECONDS (9.7-12.2) 11/24/15 14:10 INR 1.0 11/24/15 14:10 APTT 25 SECONDS (21-34) 11/24/15 14:10 - Constitutional Appears: Well, No Acute Distress - Head Exam Head Exam: ATRAUMATIC, NORMAL INSPECTION, NORMOCEPHALIC - ENT Exam ENT Exam: Mucous Membranes Moist - Respiratory Exam Respiratory Exam: Clear to Ausculation Bilateral, NORMAL BREATHING PATTERN - Cardiovascular Exam Cardiovascular Exam: RRR, +S1, +S2 - GI/Abdominal Exam GI & Abdominal Exam: Soft, Normal Bowel Sounds - Neurological Exam Additional comments: localizes to painful stimulation Assessment and Plan - Assessment and Plan (Free Text) Assessment: 1) Upper GI bleed Assessment & Plan: Tube feeds maintained at 40cc/hr (4 hours on, 4 hours off, repeat), no residual Trach culture - Gram negative patsy (prelim results) GI consulted: Dr. Fermin, Appreciate recs: No melena, or overt rectal bleeding, H/H stable. May reconsult as necessary Cleared to start ASA and Plavix. H&H stable Monitor 2) Hypokalemia Recheck BMP Assessment & Plan: 3) Abdominal Distension Assessment & Plan: 07/19: seems to be resolved. continue to monitor 07/18: Continue feedings. Continue with Miralax 17g PEG qHS 07/17: Maintenance fluid: D5/NS @20cc/hr was DC; Continue feedings 07/16: Tube feedings resumed at 40cc/hr (4hr on, 4hr off). Continue with Miralax 17g PEG qHS 07/15: Gentamicin and Primaxin were DC today. No PICC line needed. Increased feeding to 40cc/hr (4hr on, 4hr off). 07/14: Nursing reports 2 BMs on 07/12. Hyperactive bowel sounds. Will d/c senna. Lactulose was held. Continue with Miralax 17g PEG qHS ID on case, Dr. Walden - rx in progress, adjust gentamicin to 100mg q24, Primaxin IVPB Q6H Prior: Still no BM. Miralax 17g PEG qNight. Senna syrup 5ml PEG BID, will reduce senna regimen to every 3rd day once patient has a BM 07/09: colace tid, lactulose once at night 07/07: Stopped feeds and PEG medications due to coffee ground emesis via PEG. 07/06: Feeds will be resume at 10cc/hr for 4 hours then off 4 hours ( intermittent trickle feeding) 07/05: Continue current management 07/04: distention improving. Repeat Abd X-ray inconclusive. 07/03: Tube feeds were stopped and suction started due possibility of partial obstruction. 07/02 Abd xray - fecal impaction, will order another abdominal x- ray. f/u results. Stopped Miralax, Stopped Senna, stopped pepcid. 07/02: Some resolution of distension 07/01: starting Lactulose QID until BM 06/30: Abd x-ray: Fecal impaction present. Consider disimpaction vs. Miralax vs Senna. Start Miralax qHS and Senna q72hrs for suspected constipation. 06/27: bladder scan <15cc urine 06/28: abd u/s findings consistent with fatty hepatic infiltrtaion. There are 2 hepatic calcification nonspecific; r/o prior exposure to a granulomatous disease [pls see full report] baker in place Continue Ditropan 5mg via PEG TID 4) Anoxic encephalopathy Assessment & Plan: no acute changes: continue with q2h turning, therapy, feeds through PEG site and suctioning trach routinely continue to monitor weekly labs Pending placement (5) Respiratory failure Assessment & Plan: Trach culture grew gram negative rods- Pending Dr. Walden recommendations. Continue trach care and suctioning as needed. Continue current management CXR shows atelectasis. Monitor (6) CAD (coronary artery disease) Assessment & Plan: Continue current management. s/p cardiac stents on 06/13/15 Continue ASA 81mg via PEG daily Continue Plavix 75mg via PEG daily (7) Seizures Assessment & Plan: Continue current management with Dilantin. 07/07: Changed Dilantin 100 mg PED TID to Dilantin 100 mg IVP TID 07/04:Continue Dilantin 100mg via PEG TID Continue seizure precautions Monitor (8) Bed sore Assessment & Plan: bed sore looks resolved 07/17: Continue current management 07/04: New skin 1.5 cm sacral fissure continue wound care bedside monitor 07/03: Continue current management 07/02: Continue wound care Prevalon boots in place to avoid heel ulcer development Continue to turn patient q2hrs Monitor with skin checks <Nathaniel Beth - Last Filed: 07/20/16 14:45> Objective - Vital Signs/Intake and Output Vital Signs (last 24 hours): Temp Pulse Resp BP Pulse Ox 98 F 88 20 117/80 99 07/20/16 08:00 07/20/16 08:00 07/20/16 08:00 07/20/16 08:00 07/20/16 08:00 Intake and Output: 07/20/16 07/20/16 06:59 18:59 Intake Total 500 Output Total 150 Balance 350 - Medications Medications: Current Medications Aspirin (Aspirin Chewable) 81 mg PEG DAILY [facility] Last Admin: 07/20/16 11:00 Dose: 81 mg Carvedilol (Coreg) 3.125 mg PO BID [facility] Clopidogrel Bisulfate (Plavix) 75 mg PEG DAILY [facility] Last Admin: 07/20/16 11:00 Dose: 75 mg Famotidine (Pepcid) 20 mg PEG BID [facility] Last Admin: 07/20/16 11:00 Dose: 20 mg Lactulose (Enulose) 20 gm PEG HS [facility] Last Admin: 07/14/16 21:40 Dose: 20 gm Mupirocin (Bactroban Ointment) 0 gm TOP DAILY [facility] Last Admin: 07/20/16 11:00 Dose: 1 applic Polyethylene Glycol (Miralax) 17 gm PO QPM [facility] Last Admin: 07/19/16 17:46 Dose: 17 gm - Labs Labs: 07/19/16 08:58 07/19/16 08:58 PT 10.6 SECONDS (9.7-12.2) 11/24/15 14:10 INR 1.0 11/24/15 14:10 APTT 25 SECONDS (21-34) 11/24/15 14:10 Attending/Attestation - Attestation I have personally seen and examined this patient.: Yes I have fully participated in the care of the patient.: Yes I have reviewed all pertinent clinical information, including history, physical exam and plan: Yes Notes (Text): Patient seen and examined; I agree with the resident's assessment/plan as above with the following edits/additions: Patient is s/p cardiac arrest with ensuing anoxic brain injury; admitted here since over 1 year due to difficulty with placement; He is off all abx since 07/15 when he completed 7 day course of gentamicin (for pseudomonas and klebsiella in trach culture, obtained after patient with aspiration pneumonia) and imipenem for Proteus UTI; Repeat trach culture sent on 07/16 again growing Psuedomonas as well as Proteus; however, no leukocytosis and patient has been afebrile; will opt not to treat asymptomatic culture result; Patient also with mildly elevated transaminases; will hold dilantin ( particularly as level has been subtherapeutic anway); Patient tolerating PEG tube feeding well; increasing frequency to 6 hours of feeds alternating with 2 hours of rest.
[2016-07-19 09:07] LABS: HEMOGLOBIN 12.9 g/dL (12.0-18.0); MEAN CELL VOLUME 91.3 fL (80.0-94.0); MEAN CORPUSCULAR HEMOGLOBIN 30.2 pg (27.0-31.0); MEAN CORPUSCULAR HGB CONC 33.1 g/dL (33.0-37.0); MEAN PLATELET VOLUME 7.8 fL (7.2-11.7); RBC 4.28 Mil/uL (4.40-5.90); RED CELL DISTRIBUTION WIDTH 15.1 % (11.5-14.5); WHITE BLOOD COUNT 7.8 K/uL (4.8-10.8)
[2016-07-19 09:30] LABS: ALBUMIN 3.8 g/dL (3.5-5.0)
[2016-07-19 09:33] LABS: GFR NON-AFRICAN AMERICAN > 60
[2016-07-19 09:34] LABS: ALB/GLOB RATIO 0.8 (1.0-2.1); ALT/SGPT 111 U/L (21-72); AST/SGOT 91 U/L (17-59); BLOOD UREA NITROGEN 11 mg/dL (9-20)
[2016-07-19] MEDS: Phenytoin 100 mg/4 ml Oral Susp UD PEG SCH ×2 (10:38→15:01)
[2016-07-19] MEDS: POLYETHYLENE GLYCOL 3350 17 GM/Dose PACKET PO SCH (17:46)
--- NOTE | 2016-07-20 08:38 | CP.PCM.PN ---
<Geoffrey Liu - Last Filed: 07/20/16 08:34> Subjective - Date & Time of Evaluation Date of Evaluation: 07/20/16 Time of Evaluation: 08:34 - Subjective Subjective: PGY1 medicine note. Dr. Beth Service. Pt seen and evaluated at bedside. No acute events overnight. No fever, no chills. no new complaints. Dilantin stopped yesterday due increase in LFTs, will monitor today. Objective - Vital Signs/Intake and Output Vital Signs (last 24 hours): Temp Pulse Resp BP Pulse Ox 98 F 76 20 99/58 L 100 07/20/16 00:00 07/20/16 01:03 07/20/16 00:00 07/20/16 00:00 07/20/16 00:00 Intake and Output: 07/20/16 07/20/16 06:59 18:59 Intake Total 500 Output Total 150 Balance 350 - Medications Medications: Current Medications Aspirin (Aspirin Chewable) 81 mg PEG DAILY [facility] Last Admin: 07/19/16 10:38 Dose: 81 mg Clopidogrel Bisulfate (Plavix) 75 mg PEG DAILY [facility] Last Admin: 07/19/16 10:38 Dose: 75 mg Enalapril Maleate (Vasotec) 5 mg PO DAILY [facility] Last Admin: 07/19/16 10:38 Dose: 5 mg Famotidine (Pepcid) 20 mg PEG BID [facility] Last Admin: 07/19/16 17:46 Dose: 20 mg Lactulose (Enulose) 20 gm PEG HS [facility] Last Admin: 07/14/16 21:40 Dose: 20 gm Mupirocin (Bactroban Ointment) 0 gm TOP DAILY [facility] Last Admin: 07/19/16 10:39 Dose: 1 applic Polyethylene Glycol (Miralax) 17 gm PO QPM [facility] Last Admin: 07/19/16 17:46 Dose: 17 gm - Labs Labs: 07/19/16 08:58 07/19/16 08:58 PT 10.6 SECONDS (9.7-12.2) 11/24/15 14:10 INR 1.0 11/24/15 14:10 APTT 25 SECONDS (21-34) 11/24/15 14:10 Assessment and Plan - Assessment and Plan (Free Text) Assessment: 1) Upper GI bleed Assessment & Plan: Tube feeds maintained at 40cc/hr (4 hours on, 4 hours off, repeat), no residual Trach culture - Gram negative patsy (prelim results) WBC down trending. Afebrile GI consulted: Dr. Fermin, Appreciate recs: No melena, or overt rectal bleeding, H/H stable. May reconsult as necessary Cleared to start ASA and Plavix. H&H stable Monitor 2) Hypokalemia Recheck BMP Assessment & Plan: 3) Abdominal Distension Assessment & Plan: seems to be resolved. continue to monitor 07/18: Continue feedings. Continue with Miralax 17g PEG qHS 07/17: Maintenance fluid: D5/NS @20cc/hr was DC; Continue feedings 07/16: Tube feedings resumed at 40cc/hr (4hr on, 4hr off). Continue with Miralax 17g PEG qHS 07/15: Gentamicin and Primaxin were DC today. No PICC line needed. Increased feeding to 40cc/hr (4hr on, 4hr off). 07/14: Nursing reports 2 BMs on 07/12. Hyperactive bowel sounds. Will d/c senna. Lactulose was held. Continue with Miralax 17g PEG qHS ID on case, Dr. Walden - rx in progress, adjust gentamicin to 100mg q24, Primaxin IVPB Q6H Prior: Still no BM. Miralax 17g PEG qNight. Senna syrup 5ml PEG BID, will reduce senna regimen to every 3rd day once patient has a BM 07/09: colace tid, lactulose once at night 07/07: Stopped feeds and PEG medications due to coffee ground emesis via PEG. 07/06: Feeds will be resume at 10cc/hr for 4 hours then off 4 hours ( intermittent trickle feeding) 07/05: Continue current management 07/04: distention improving. Repeat Abd X-ray inconclusive. 07/03: Tube feeds were stopped and suction started due possibility of partial obstruction. 07/02 Abd xray - fecal impaction, will order another abdominal x- ray. f/u results. Stopped Miralax, Stopped Senna, stopped pepcid. 07/02: Some resolution of distension 07/01: starting Lactulose QID until BM 06/30: Abd x-ray: Fecal impaction present. Consider disimpaction vs. Miralax vs Senna. Start Miralax qHS and Senna q72hrs for suspected constipation. 06/27: bladder scan <15cc urine 06/28: abd u/s findings consistent with fatty hepatic infiltrtaion. There are 2 hepatic calcification nonspecific; r/o prior exposure to a granulomatous disease [pls see full report] baker in place Continue Ditropan 5mg via PEG TID 4) Anoxic encephalopathy Assessment & Plan: no acute changes: continue with q2h turning, therapy, feeds through PEG site and suctioning trach routinely continue to monitor weekly labs Pending placement (5) Respiratory failure Assessment & Plan: Trach culture grew gram negative rods- Pending Dr. Walden recommendations. Continue trach care and suctioning as needed. Continue current management CXR shows atelectasis. Monitor (6) CAD (coronary artery disease) Assessment & Plan: Continue current management. s/p cardiac stents on 06/13/15 Continue ASA 81mg via PEG daily Continue Plavix 75mg via PEG daily (7) Seizures Assessment & Plan: Phenytoin level low on 07/19 - 4.2. Phenytoin Held on 07/19 due to LFTs increase. Will monitor. Continue current management with Dilantin. 07/07: Changed Dilantin 100 mg PED TID to Dilantin 100 mg IVP TID 07/04:Continue Dilantin 100mg via PEG TID Continue seizure precautions Monitor (8) Bed sore Assessment & Plan: bed sore looks resolved 07/17: Continue current management 07/04: New skin 1.5 cm sacral fissure continue wound care bedside monitor 07/03: Continue current management 07/02: Continue wound care Prevalon boots in place to avoid heel ulcer development Continue to turn patient q2hrs Monitor with skin checks <Nathaniel Beth - Last Filed: 07/21/16 06:34> Objective - Vital Signs/Intake and Output Vital Signs (last 24 hours): Temp Pulse Resp BP Pulse Ox 98.5 F 85 20 127/85 99 07/20/16 23:41 07/21/16 01:11 07/20/16 23:41 07/20/16 23:41 07/20/16 23:41 Intake and Output: 07/20/16 07/21/16 18:59 06:59 Intake Total 440 34 Balance 440 34 - Medications Medications: Current Medications Aspirin (Aspirin Chewable) 81 mg PEG DAILY [facility] Last Admin: 07/20/16 11:00 Dose: 81 mg Carvedilol (Coreg) 3.125 mg PO BID [facility] Last Admin: 07/20/16 17:09 Dose: 3.125 mg Clopidogrel Bisulfate (Plavix) 75 mg PEG DAILY [facility] Last Admin: 07/20/16 11:00 Dose: 75 mg Famotidine (Pepcid) 20 mg PEG BID [facility] Last Admin: 07/20/16 17:09 Dose: 20 mg Lactulose (Enulose) 20 gm PEG HS [facility] Last Admin: 07/14/16 21:40 Dose: 20 gm Mupirocin (Bactroban Ointment) 0 gm TOP DAILY [facility] Last Admin: 07/20/16 11:00 Dose: 1 applic Polyethylene Glycol (Miralax) 17 gm PO QPM [facility] Last Admin: 07/20/16 17:09 Dose: 17 gm - Labs Labs: 07/19/16 08:58 07/19/16 08:58 PT 10.6 SECONDS (9.7-12.2) 11/24/15 14:10 INR 1.0 11/24/15 14:10 APTT 25 SECONDS (21-34) 11/24/15 14:10 Attending/Attestation - Attestation I have personally seen and examined this patient.: Yes I have fully participated in the care of the patient.: Yes I have reviewed all pertinent clinical information, including history, physical exam and plan: Yes Notes (Text): Patient seen and examined; I agree with the resident's A/P as above with the following edits/additions: Patient being managed s/p cardiac arrest w/ anoxic brain injury, prolonged admission (>1 year) due to placement issues: BP low normal with patient on enalapril 5 mg daily; will d/c and start coreg 3.125 mg bid; Otherwise, abdomen soft, non-distended; tolerating 6 hours (increased yesterday ) of tube feeds at 40 cc/hr alternating with 2 hours of bowel rest, zero residual noted; Dilantin held yesterday after level found sub-therapeutic and transaminases mildly elevated; will look for improvement in transaminases.
[2016-07-20] MEDS: POLYETHYLENE GLYCOL 3350 17 GM/Dose PACKET PO SCH (17:09)
--- NOTE | 2016-07-21 11:21 | CP.PCM.PN ---
<Alex Coyle - Last Filed: 07/21/16 17:37> Subjective - Date & Time of Evaluation Date of Evaluation: 07/21/16 Time of Evaluation: 09:15 - Subjective Subjective: PGY-[address] Ying's service Pt seen and evaluated at bedside. No acute events overnight. No fever, no chills noted. Contact isolation for MDRO in urine culture. Patient minimally responsive to tactile stimuli; however nonresponsive to verbal stimuli secondary to anoxic brain injury. Objective - Vital Signs/Intake and Output Vital Signs (last 24 hours): Temp Pulse Resp BP Pulse Ox 98.2 F 85 20 122/76 99 07/21/16 08:00 07/21/16 08:00 07/21/16 08:00 07/21/16 08:00 07/21/16 08:00 Intake and Output: 07/21/16 07/21/16 06:59 18:59 Intake Total 34 340 Output Total 550 Balance 34 -210 - Medications Medications: Current Medications Aspirin (Aspirin Chewable) 81 mg PEG DAILY [facility] Last Admin: 07/21/16 09:26 Dose: 81 mg Carvedilol (Coreg) 3.125 mg PO BID [facility] Last Admin: 07/21/16 09:27 Dose: 3.125 mg Clopidogrel Bisulfate (Plavix) 75 mg PEG DAILY [facility] Last Admin: 07/21/16 09:26 Dose: 75 mg Famotidine (Pepcid) 20 mg PEG BID [facility] Last Admin: 07/21/16 09:27 Dose: 20 mg Lactulose (Enulose) 20 gm PEG HS [facility] Last Admin: 07/14/16 21:40 Dose: 20 gm Mupirocin (Bactroban Ointment) 0 gm TOP DAILY [facility] Last Admin: 07/21/16 09:28 Dose: 1 applic Polyethylene Glycol (Miralax) 17 gm PO QPM [facility] Last Admin: 07/20/16 17:09 Dose: 17 gm - Labs Labs: 07/19/16 08:58 07/19/16 08:58 PT 10.6 SECONDS (9.7-12.2) 11/24/15 14:10 INR 1.0 11/24/15 14:10 APTT 25 SECONDS (21-34) 11/24/15 14:10 - Constitutional Appears: No Acute Distress - Head Exam Head Exam: NORMAL INSPECTION - Eye Exam Eye Exam: EOMI - ENT Exam ENT Exam: Mucous Membranes Moist - Neck Exam Additional comments: Trach in place with dressing intact, no discharge - Respiratory Exam Respiratory Exam: Clear to Ausculation Bilateral. absent: Wheezes - Cardiovascular Exam Cardiovascular Exam: +S1, +S2 - GI/Abdominal Exam GI & Abdominal Exam: Soft. absent: Rigid, Tenderness - Extremities Exam Extremities Exam: absent: Pedal Edema Additional comments: Boots in place to prevent heel ulceration - Neurological Exam Neurological Exam: Awake Additional comments: Patient non-responsive to verbal stimuli, but can grimace to painful stimuli - Psychiatric Exam Additional comments: unable to assess due to anoxic brain injury - Skin Skin Exam: Dry, Intact, Normal Color, Warm Assessment and Plan - Assessment and Plan (Free Text) Assessment: 1) Upper GI bleed Assessment & Plan: Tube feeds maintained at 40cc/hr (with 2 hours of bowel rest), no residual Trach culture - Gram negative patsy (prelim results) WBC down trending. Afebrile GI consulted: Dr. Fermin, Appreciate recs: No melena, or overt rectal bleeding, H/H stable. May reconsult as necessary Cleared to start ASA and Plavix. H&H stable Monitor 2) Hypokalemia Assessment & Plan: Resolved, continue to monitor. 3) Abdominal Distension Assessment & Plan: seems to be resolved. continue to monitor 07/18: Continue feedings. Continue with Miralax 17g PEG qHS 07/17: Maintenance fluid: D5/NS @20cc/hr was DC; Continue feedings 07/16: Tube feedings resumed at 40cc/hr (4hr on, 4hr off). Continue with Miralax 17g PEG qHS 07/15: Gentamicin and Primaxin were DC today. No PICC line needed. Increased feeding to 40cc/hr (4hr on, 4hr off). 07/14: Nursing reports 2 BMs on 07/12. Hyperactive bowel sounds. Will d/c senna. Lactulose was held. Continue with Miralax 17g PEG qHS ID on case, Dr. Walden - rx in progress, adjust gentamicin to 100mg q24, Primaxin IVPB Q6H Prior: Still no BM. Miralax 17g PEG qNight. Senna syrup 5ml PEG BID, will reduce senna regimen to every 3rd day once patient has a BM 07/09: colace tid, lactulose once at night 07/07: Stopped feeds and PEG medications due to coffee ground emesis via PEG. 07/06: Feeds will be resume at 10cc/hr for 4 hours then off 4 hours ( intermittent trickle feeding) 07/05: Continue current management 07/04: distention improving. Repeat Abd X-ray inconclusive. 07/03: Tube feeds were stopped and suction started due possibility of partial obstruction. 07/02 Abd xray - fecal impaction, will order another abdominal x- ray. f/u results. Stopped Miralax, Stopped Senna, stopped pepcid. 07/02: Some resolution of distension 07/01: starting Lactulose QID until BM 06/30: Abd x-ray: Fecal impaction present. Consider disimpaction vs. Miralax vs Senna. Start Miralax qHS and Senna q72hrs for suspected constipation. 06/27: bladder scan <15cc urine 06/28: abd u/s findings consistent with fatty hepatic infiltrtaion. There are 2 hepatic calcification nonspecific; r/o prior exposure to a granulomatous disease [pls see full report] baker in place Continue Ditropan 5mg via PEG TID 4) Anoxic encephalopathy Assessment & Plan: Chronic No acute changes: continue with q2h turning, therapy, feeds through PEG site and suctioning trach routinely continue to monitor weekly labs Pending placement (5) Respiratory failure Assessment & Plan: Trach culture grew gram negative rods -Pending Dr. Walden recommendations. Continue trach care and suctioning as needed. Continue current management CXR shows atelectasis. Monitor (6) CAD (coronary artery disease) Assessment & Plan: Continue current management. s/p cardiac stents on 06/13/15 Continue ASA 81mg via PEG daily Continue Plavix 75mg via PEG daily (7) Seizures Assessment & Plan: Phenytoin held due to LFTs increase. Will recheck labs today and restart if resolved. Will consider another anti-epileptic agent if unresolved. Phenytoin level low on 07/19 - 4.2. 07/07: Changed Dilantin 100 mg PED TID to Dilantin 100 mg IVP TID 07/04:Continue Dilantin 100mg via PEG TID Continue seizure precautions Monitor (8) Bed sore Assessment & Plan: bed sore looks resolved 07/17: Continue current management 07/04: New skin 1.5 cm sacral fissure continue wound care bedside monitor 07/03: Continue current management 07/02: Continue wound care Prevalon boots in place to avoid heel ulcer development Continue to turn patient q2hrs Monitor with skin checks -Norbert, PGY-1 <StepanSolangeDonnell M - Last Filed: 07/21/16 18:27> Objective - Vital Signs/Intake and Output Vital Signs (last 24 hours): Temp Pulse Resp BP Pulse Ox 97.6 F 77 22 132/90 99 07/21/16 16:52 07/21/16 16:52 07/21/16 16:52 07/21/16 16:52 07/21/16 16:52 Intake and Output: 07/21/16 07/21/16 06:59 18:59 Intake Total 34 680 Output Total 850 Balance 34 -170 - Medications Medications: Current Medications Aspirin (Aspirin Chewable) 81 mg PEG DAILY [facility] Last Admin: 07/21/16 09:26 Dose: 81 mg Carvedilol (Coreg) 3.125 mg PO BID [facility] Last Admin: 07/21/16 09:27 Dose: 3.125 mg Clopidogrel Bisulfate (Plavix) 75 mg PEG DAILY [facility] Last Admin: 07/21/16 09:26 Dose: 75 mg Famotidine (Pepcid) 20 mg PEG BID [facility] Last Admin: 07/21/16 09:27 Dose: 20 mg Lactulose (Enulose) 20 gm PEG HS [facility] Last Admin: 07/14/16 21:40 Dose: 20 gm Mupirocin (Bactroban Ointment) 0 gm TOP DAILY [facility] Last Admin: 07/21/16 09:28 Dose: 1 applic Polyethylene Glycol (Miralax) 17 gm PO QPM [facility] Last Admin: 07/20/16 17:09 Dose: 17 gm - Labs Labs: 07/21/16 18:16 07/19/16 08:58 PT 10.6 SECONDS (9.7-12.2) 11/24/15 14:10 INR 1.0 11/24/15 14:10 APTT 25 SECONDS (21-34) 11/24/15 14:10 Attending/Attestation - Attestation I have personally seen and examined this patient.: Yes I have fully participated in the care of the patient.: Yes I have reviewed all pertinent clinical information, including history, physical exam and plan: Yes Notes (Text): 07/21/16 18:27 Patient seen and examined at bedside with the resident No change in clinical condition. Monitor for decubitus ulcer. Turn and position every 2 hours. I agree with the above history and physical and assessment/plan by the resident.
[2016-07-21 18:22] LABS: MEAN CORPUSCULAR HEMOGLOBIN 30.5 pg (27.0-31.0); MEAN CORPUSCULAR HGB CONC 33.9 g/dL (33.0-37.0); RBC 4.27 Mil/uL (4.40-5.90); RED CELL DISTRIBUTION WIDTH 15.1 % (11.5-14.5); WHITE BLOOD COUNT 6.9 K/uL (4.8-10.8)
[2016-07-21 18:31] LABS: ALBUMIN 3.8 g/dL (3.5-5.0)
[2016-07-21 18:34] LABS: ALB/GLOB RATIO 0.8 (1.0-2.1); ALT/SGPT 197 U/L (21-72); AST/SGOT 84 U/L (17-59); BLOOD UREA NITROGEN 17 mg/dL (9-20); GFR NON-AFRICAN AMERICAN > 60
[2016-07-21 18:35] LABS: CALCIUM 8.9 mg/dl (8.6-10.4)
[2016-07-21] MEDS: POLYETHYLENE GLYCOL 3350 17 GM/Dose PACKET PO SCH (19:03)
--- NOTE | 2016-07-22 07:45 | CP.PCM.PN ---
<Alex Coyle - Last Filed: 07/22/16 19:49> Subjective - Date & Time of Evaluation Date of Evaluation: 07/22/16 Time of Evaluation: 07:55 - Subjective Subjective: PGY-[address] Ying's service Pt seen and evaluated at bedside. No acute events overnight. No fever, no chills noted. Contact isolation for MDRO in urine culture. Patient is minimally responsive to tactile stimuli and nonresponsive to verbal stimuli secondary to anoxic brain injury. Patient is turned every 2 hours per nursing team to prevent bed sores. Objective - Vital Signs/Intake and Output Vital Signs (last 24 hours): Temp Pulse Resp BP Pulse Ox 98.8 F 66 20 103/69 98 07/21/16 23:18 07/21/16 23:30 07/21/16 23:18 07/21/16 23:18 07/21/16 23:18 Intake and Output: 07/22/16 07/22/16 06:59 18:59 Intake Total 720 Balance 720 - Medications Medications: Current Medications Aspirin (Aspirin Chewable) 81 mg PEG DAILY [facility] Last Admin: 07/21/16 09:26 Dose: 81 mg Carvedilol (Coreg) 3.125 mg PO BID [facility] Last Admin: 07/21/16 19:02 Dose: 3.125 mg Clopidogrel Bisulfate (Plavix) 75 mg PEG DAILY [facility] Last Admin: 07/21/16 09:26 Dose: 75 mg Famotidine (Pepcid) 20 mg PEG BID [facility] Last Admin: 07/21/16 19:02 Dose: 20 mg Lactulose (Enulose) 20 gm PEG HS [facility] Last Admin: 07/14/16 21:40 Dose: 20 gm Mupirocin (Bactroban Ointment) 0 gm TOP DAILY [facility] Last Admin: 07/21/16 09:28 Dose: 1 applic Polyethylene Glycol (Miralax) 17 gm PO QPM [facility] Last Admin: 07/21/16 19:03 Dose: 17 gm - Labs Labs: 07/21/16 18:16 07/21/16 18:16 PT 10.6 SECONDS (9.7-12.2) 11/24/15 14:10 INR 1.0 11/24/15 14:10 APTT 25 SECONDS (21-34) 11/24/15 14:10 - Constitutional Appears: Non-toxic, No Acute Distress - Head Exam Head Exam: NORMAL INSPECTION - Eye Exam Eye Exam: EOMI. absent: Conjunctival injection - ENT Exam ENT Exam: Mucous Membranes Moist - Neck Exam Additional comments: trach in place with dressing intact- minimal secretions at present - Respiratory Exam Respiratory Exam: absent: Rales, Wheezes - Cardiovascular Exam Cardiovascular Exam: +S1, +S2. absent: Murmur - GI/Abdominal Exam GI & Abdominal Exam: Soft. absent: Rigid, Tenderness - Rectal Exam Rectal Exam: Deferred - Extremities Exam Extremities Exam: absent: Pedal Edema Additional comments: Boots in place to prevent heel ulceration - Neurological Exam Neurological Exam: Awake Additional comments: Patient non-responsive to verbal stimuli, but can grimace to painful stimuli - Psychiatric Exam Psychiatric exam: Normal Affect, Normal Mood - Skin Skin Exam: Dry, Intact, Normal Color Additional comments: sacral abrasion, skin intact Assessment and Plan - Assessment and Plan (Free Text) Assessment: 1) Upper GI bleed Assessment & Plan: Tube feeds maintained at 40cc/hr (with 2 hours of bowel rest), no residual Trach culture - Gram negative patsy (prelim results) WBC down trending. Afebrile GI consulted: Dr. Fermin, Appreciate recs: No melena, or overt rectal bleeding, H/H stable. May reconsult as necessary Cleared to start ASA and Plavix. H&H stable Continue to monitor 2) Hypokalemia Assessment & Plan: Resolved, continue to monitor. 3) Abdominal Distension Assessment & Plan: Resolved. continue to monitor 07/18: Continue feedings. Continue with Miralax 17g PEG qHS 07/17: Maintenance fluid: D5/NS @20cc/hr was DC; Continue feedings 07/16: Tube feedings resumed at 40cc/hr (4hr on, 4hr off). Continue with Miralax 17g PEG qHS 07/15: Gentamicin and Primaxin were DC today. No PICC line needed. Increased feeding to 40cc/hr (4hr on, 4hr off). 07/14: Nursing reports 2 BMs on 07/12. Hyperactive bowel sounds. Will d/c senna. Lactulose was held. Continue with Miralax 17g PEG qHS ID on case, Dr. Walden - rx in progress, adjust gentamicin to 100mg q24, Primaxin IVPB Q6H Prior: Still no BM. Miralax 17g PEG qNight. Senna syrup 5ml PEG BID, will reduce senna regimen to every 3rd day once patient has a BM 07/09: colace tid, lactulose once at night 07/07: Stopped feeds and PEG medications due to coffee ground emesis via PEG. 07/06: Feeds will be resume at 10cc/hr for 4 hours then off 4 hours ( intermittent trickle feeding) 07/05: Continue current management 07/04: distention improving. Repeat Abd X-ray inconclusive. 07/03: Tube feeds were stopped and suction started due possibility of partial obstruction. 07/02 Abd xray - fecal impaction, will order another abdominal x- ray. f/u results. Stopped Miralax, Stopped Senna, stopped pepcid. 07/02: Some resolution of distension 07/01: starting Lactulose QID until BM 06/30: Abd x-ray: Fecal impaction present. Consider disimpaction vs. Miralax vs Senna. Start Miralax qHS and Senna q72hrs for suspected constipation. 06/27: bladder scan <15cc urine 06/28: abd u/s findings consistent with fatty hepatic infiltration. There are 2 hepatic calcification nonspecific; r/o prior exposure to a granulomatous disease [pls see full report] baker in place 4) Anoxic encephalopathy Assessment & Plan: Chronic No acute changes: continue with q2h turning, therapy, feeds through PEG site and suctioning trach routinely continue to monitor weekly labs Pending placement (5) Respiratory failure Assessment & Plan: Trach culture grew gram negative rods -Pending Dr. Walden recommendations. Continue trach care and suctioning as needed. Continue current management CXR shows atelectasis. Monitor (6) CAD (coronary artery disease) Assessment & Plan: Continue current management. s/p cardiac stents on 06/13/15 Continue ASA 81mg via PEG daily Carvedilol 3.125mg PO BID Continue Plavix 75mg via PEG daily (7) Seizures Assessment & Plan: 07/22/16: Begin Keppra 500mg PEG BID, Phenytoin d/c due to continued inc in LFT' s 07/21/16: Phenytoin held due to LFTs increase. LFT's still elevated- switch to Keppra. Phenytoin level low on 07/19 - 4.2. Continue seizure precautions Monitor (8) Bed sore Assessment & Plan: Resolved, Continue current management Continue to turn patient q2hrs Monitor with skin checks (9) Prophylactic measure Assessment & Plan: Pepcid 20 mg PEG BID SCDs Boots in place -Norbert, PGY-1 <StepanDonnell M - Last Filed: 07/22/16 22:12> Objective - Vital Signs/Intake and Output Vital Signs (last 24 hours): Temp Pulse Resp BP Pulse Ox 97.4 F L 84 20 150/76 98 07/22/16 16:00 07/22/16 20:18 07/22/16 16:00 07/22/16 16:00 07/22/16 16:00 Intake and Output: 07/22/16 07/23/16 18:59 06:59 Intake Total 580 Output Total 100 Balance 480 - Medications Medications: Current Medications Aspirin (Aspirin Chewable) 81 mg PEG DAILY [facility] Last Admin: 07/22/16 10:39 Dose: 81 mg Carvedilol (Coreg) 3.125 mg PO BID [facility] Last Admin: 07/22/16 17:46 Dose: 3.125 mg Clopidogrel Bisulfate (Plavix) 75 mg PEG DAILY [facility] Last Admin: 07/22/16 10:39 Dose: 75 mg Famotidine (Pepcid) 20 mg PEG BID [facility] Last Admin: 07/22/16 17:46 Dose: 20 mg Lactulose (Enulose) 20 gm PEG HS [facility] Last Admin: 07/14/16 21:40 Dose: 20 gm Levetiracetam (Keppra) 500 mg PEG BID [facility] Mupirocin (Bactroban Ointment) 0 gm TOP DAILY [facility] Last Admin: 07/22/16 10:52 Dose: 1 applic Polyethylene Glycol (Miralax) 17 gm PO QPM [facility] Last Admin: 07/22/16 17:46 Dose: 17 gm - Labs Labs: 07/21/16 18:16 07/21/16 18:16 PT 10.6 SECONDS (9.7-12.2) 11/24/15 14:10 INR 1.0 11/24/15 14:10 APTT 25 SECONDS (21-34) 11/24/15 14:10 Attending/Attestation - Attestation I have personally seen and examined this patient.: Yes I have fully participated in the care of the patient.: Yes I have reviewed all pertinent clinical information, including history, physical exam and plan: Yes Notes (Text): 07/22/16 22:09 patient was seen and examined at bedside with the resident no change in Clinical condition Continue current management Turn and position every 2 hours to prevent decubitus ulcers Continue local care of tracheostomy and PEG tube
[2016-07-22] MEDS: POLYETHYLENE GLYCOL 3350 17 GM/Dose PACKET PO SCH (17:46)
[2016-07-22] MEDS: levETIRAcetam 100 mg/ml (5ml) Oral Syringe PEG SCH (18:00)
--- NOTE | 2016-07-23 06:28 | CP.PCM.PN ---
<Alex Coyle - Last Filed: 07/23/16 22:45> Subjective - Date & Time of Evaluation Date of Evaluation: 07/23/16 Time of Evaluation: 06:05 - Subjective Subjective: PGY-[address] Ying's service Pt seen and evaluated at bedside. No acute events overnight. Contact isolation for MDRO in urine culture. Patient is minimally responsive to tactile stimuli and nonresponsive to verbal stimuli secondary to anoxic brain injury. Feeding scheduled clarified with nursing. Patient turned every 2 hours per nursing team to prevent bed sores. Patient unable to respond to ROS secondary to brain injury. Objective - Vital Signs/Intake and Output Vital Signs (last 24 hours): Temp Pulse Resp BP Pulse Ox 97.4 F L 64 20 122/80 100 07/23/16 00:00 07/23/16 00:00 07/23/16 00:00 07/23/16 00:00 07/23/16 00:00 Intake and Output: 07/22/16 07/23/16 18:59 06:59 Intake Total 580 440 Output Total 100 800 Balance 480 -360 - Medications Medications: Current Medications Aspirin (Aspirin Chewable) 81 mg PEG DAILY [facility] Last Admin: 07/22/16 10:39 Dose: 81 mg Carvedilol (Coreg) 3.125 mg PO BID [facility] Last Admin: 07/22/16 17:46 Dose: 3.125 mg Clopidogrel Bisulfate (Plavix) 75 mg PEG DAILY [facility] Last Admin: 07/22/16 10:39 Dose: 75 mg Famotidine (Pepcid) 20 mg PEG BID [facility] Last Admin: 07/22/16 17:46 Dose: 20 mg Lactulose (Enulose) 20 gm PEG HS [facility] Last Admin: 07/14/16 21:40 Dose: 20 gm Levetiracetam (Keppra) 500 mg PEG BID [facility] Last Admin: 07/22/16 18:00 Dose: 500 mg Mupirocin (Bactroban Ointment) 0 gm TOP DAILY [facility] Last Admin: 07/22/16 10:52 Dose: 1 applic Polyethylene Glycol (Miralax) 17 gm PO QPM [facility] Last Admin: 07/22/16 17:46 Dose: 17 gm - Labs Labs: 07/21/16 18:16 07/21/16 18:16 PT 10.6 SECONDS (9.7-12.2) 11/24/15 14:10 INR 1.0 11/24/15 14:10 APTT 25 SECONDS (21-34) 11/24/15 14:10 - Constitutional Appears: Non-toxic, No Acute Distress - Head Exam Head Exam: NORMAL INSPECTION - Eye Exam Eye Exam: EOMI. absent: Conjunctival injection - ENT Exam ENT Exam: Mucous Membranes Moist - Neck Exam Neck Exam: absent: Lymphadenopathy Additional comments: trach in place with dressing intact- minimal secretions - Respiratory Exam Respiratory Exam: absent: Rales, Wheezes - Cardiovascular Exam Cardiovascular Exam: +S1, +S2. absent: Murmur - GI/Abdominal Exam GI & Abdominal Exam: Soft, Normal Bowel Sounds. absent: Rigid, Tenderness - Rectal Exam Rectal Exam: absent: Fecal Impaction - Extremities Exam Extremities Exam: Normal Capillary Refill. absent: Full ROM, Joint Swelling Additional comments: Boots in place to prevent heel ulceration - Back Exam Back Exam: absent: Full ROM - Neurological Exam Neurological Exam: Awake. absent: Alert, Normal Gait, Oriented x3 Additional comments: Patient non-responsive to verbal stimuli, but can grimace to painful stimuli - Psychiatric Exam Psychiatric exam: Flat Affect - Skin Skin Exam: Dry, Intact, Normal Color, Warm (cool upper extremities, warmer lower exremities). absent: Cyanosis Assessment and Plan - Assessment and Plan (Free Text) Assessment: Assessment: 1) Upper GI bleed Assessment & Plan: Tube feeds maintained at 40cc/hr (6 hours on with 2 hours of bowel rest), no residual Trach culture - Gram negative patsy (prelim results) WBC down trending. Afebrile GI consulted: Dr. Fermin, Appreciate recs: No melena, or overt rectal bleeding, H/H stable. May reconsult as necessary Cleared to start ASA and Plavix. H&H stable Continue to monitor 2) Hypokalemia Assessment & Plan: Resolved, continue to monitor. 3) Abdominal Distension Assessment & Plan: Resolved. continue to monitor 07/23: Feeds are 6 hours off and 2 hours off. Acknowledgment of note per JANET Balderas. These current feeding recommendations were set because patient was having significant residuals with a more sustained feeding schedule hourly. Miralax and Lactulose held at this point. Will attempt daily weights. Pre Albumin and routine labs ordered- Considerations appreciated 8/26: Continue feedings. Continue with Miralax 17g PEG qHS 07/17: Maintenance fluid: D5/NS @20cc/hr was DC; Continue feedings 07/16: Tube feedings resumed at 40cc/hr (4hr on, 4hr off). Continue with Miralax 17g PEG qHS 07/15: Gentamicin and Primaxin were DC today. No PICC line needed. Increased feeding to 40cc/hr (4hr on, 4hr off). 07/14: Nursing reports 2 BMs on 07/12. Hyperactive bowel sounds. Will d/c senna. Lactulose was held. Continue with Miralax 17g PEG qHS ID on case, Dr. Walden - rx in progress, adjust gentamicin to 100mg q24, Primaxin IVPB Q6H Prior: Still no BM. Miralax 17g PEG qNight. Senna syrup 5ml PEG BID, will reduce senna regimen to every 3rd day once patient has a BM 07/09: colace tid, lactulose once at night 07/07: Stopped feeds and PEG medications due to coffee ground emesis via PEG. 07/06: Feeds will be resume at 10cc/hr for 4 hours then off 4 hours ( intermittent trickle feeding) 07/05: Continue current management 07/04: distention improving. Repeat Abd X-ray inconclusive. 07/03: Tube feeds were stopped and suction started due possibility of partial obstruction. 07/02 Abd xray - fecal impaction, will order another abdominal x- ray. f/u results. Stopped Miralax, Stopped Senna, stopped pepcid. 07/02: Some resolution of distension 07/01: starting Lactulose QID until BM 06/30: Abd x-ray: Fecal impaction present. Consider disimpaction vs. Miralax vs Senna. Start Miralax qHS and Senna q72hrs for suspected constipation. 06/27: bladder scan <15cc urine 06/28: abd u/s findings consistent with fatty hepatic infiltration. There are 2 hepatic calcification nonspecific; r/o prior exposure to a granulomatous disease [pls see full report] baker in place 4) Anoxic encephalopathy Assessment & Plan: Chronic No acute changes: continue with q2h turning, therapy, feeds through PEG site and suctioning trach routinely continue to monitor weekly labs Pending placement (5) Respiratory failure Assessment & Plan: Trach culture grew gram negative rods -ID, Dr. Walden recommendations. Continue trach care and suctioning as needed. Continue current management CXR shows atelectasis. Monitor (6) CAD (coronary artery disease) Assessment & Plan: Continue current management. s/p cardiac stents on 06/13/15 Continue ASA 81mg via PEG daily Carvedilol 3.125mg PO BID Continue Plavix 75mg via PEG daily (7) Seizures Assessment & Plan: Continue Keppra 500mg PEG BID, Phenytoin d/c due to continued inc in LFT's 07/21/16: Phenytoin held due to LFTs increase. LFT's still elevated- switch to Keppra. Phenytoin level low on 07/19 - 4.2. Continue seizure precautions Monitor (8) Bed sore Assessment & Plan: Resolved, Continue current management Continue to turn patient q2hrs Monitor with skin checks (9) Prophylactic measure Assessment & Plan: Pepcid 20 mg PEG BID SCDs Boots in place -RITO ToussaintY-1 <Donnell Ying - Last Filed: 07/24/16 15:30> Objective - Vital Signs/Intake and Output Vital Signs (last 24 hours): Temp Pulse Resp BP Pulse Ox 97.3 F L 66 18 135/81 100 07/24/16 07:00 07/24/16 07:00 07/24/16 07:00 07/24/16 07:00 07/24/16 07:00 Intake and Output: 07/24/16 07/24/16 06:59 18:59 Intake Total 440 420 Output Total 200 Balance 240 420 - Medications Medications: Current Medications Aspirin (Aspirin Chewable) 81 mg PEG DAILY [facility] Last Admin: 07/24/16 10:24 Dose: 81 mg Carvedilol (Coreg) 3.125 mg PO BID [facility] Last Admin: 07/24/16 10:24 Dose: 3.125 mg Clopidogrel Bisulfate (Plavix) 75 mg PEG DAILY [facility] Last Admin: 07/24/16 10:24 Dose: 75 mg Famotidine (Pepcid) 20 mg PEG BID [facility] Last Admin: 07/24/16 10:24 Dose: 20 mg Lactulose (Enulose) 20 gm PEG HS [facility] Last Admin: 07/14/16 21:40 Dose: 20 gm Levetiracetam (Keppra) 500 mg PEG BID [facility] Last Admin: 07/24/16 10:28 Dose: 500 mg Mupirocin (Bactroban Ointment) 0 gm TOP DAILY [facility] Last Admin: 07/24/16 10:25 Dose: 1 applic Polyethylene Glycol (Miralax) 17 gm PO QPM [facility] Last Admin: 07/22/16 17:46 Dose: 17 gm - Labs Labs: 07/24/16 07:40 07/24/16 07:45 PT 10.6 SECONDS (9.7-12.2) 11/24/15 14:10 INR 1.0 11/24/15 14:10 APTT 25 SECONDS (21-34) 11/24/15 14:10 Attending/Attestation - Attestation I have personally seen and examined this patient.: Yes I have fully participated in the care of the patient.: Yes I have reviewed all pertinent clinical information, including history, physical exam and plan: Yes Notes (Text): 07/24/16 15:30 Patient was seen and examined at bedside with the resident I agree with the above history and physical and assessment/plan by the resident No change in clinical condition Continue current management
[2016-07-23] MEDS: levETIRAcetam 100 mg/ml (5ml) Oral Syringe PEG SCH ×2 (10:35→18:12)
--- NOTE | 2016-07-23 14:51 | CP.PCM.PN ---
Subjective - Date & Time of Evaluation Date of Evaluation: 07/23/16 Time of Evaluation: 09:00 - Subjective Subjective: has MDRO sputum/ urine- likely colonized cont present management Objective - Vital Signs/Intake and Output Vital Signs (last 24 hours): Temp Pulse Resp BP Pulse Ox 98.8 F 60 20 107/71 100 07/23/16 07:55 07/23/16 07:55 07/23/16 07:55 07/23/16 07:55 07/23/16 07:55 Intake and Output: 07/23/16 07/23/16 06:59 18:59 Intake Total 780 340 Output Total 800 Balance -20 340 - Medications Medications: Current Medications Aspirin (Aspirin Chewable) 81 mg PEG DAILY [facility] Last Admin: 07/23/16 10:35 Dose: 81 mg Carvedilol (Coreg) 3.125 mg PO BID [facility] Last Admin: 07/23/16 10:35 Dose: 3.125 mg Clopidogrel Bisulfate (Plavix) 75 mg PEG DAILY [facility] Last Admin: 07/23/16 10:35 Dose: 75 mg Famotidine (Pepcid) 20 mg PEG BID [facility] Last Admin: 07/23/16 10:35 Dose: 20 mg Lactulose (Enulose) 20 gm PEG HS [facility] Last Admin: 07/14/16 21:40 Dose: 20 gm Levetiracetam (Keppra) 500 mg PEG BID [facility] Last Admin: 07/23/16 10:35 Dose: 500 mg Mupirocin (Bactroban Ointment) 0 gm TOP DAILY [facility] Last Admin: 07/23/16 10:40 Dose: 1 applic Polyethylene Glycol (Miralax) 17 gm PO QPM [facility] Last Admin: 07/22/16 17:46 Dose: 17 gm - Labs Labs: 07/21/16 18:16 07/21/16 18:16 PT 10.6 SECONDS (9.7-12.2) 11/24/15 14:10 INR 1.0 11/24/15 14:10 APTT 25 SECONDS (21-34) 11/24/15 14:10 - Constitutional Appears: Confused - Eye Exam Eye Exam: absent: Scleral icterus - ENT Exam ENT Exam: Mucous Membranes Dry - Neck Exam Neck Exam: absent: Lymphadenopathy - Respiratory Exam Respiratory Exam: Decreased Breath Sounds - Cardiovascular Exam Cardiovascular Exam: REGULAR RHYTHM - GI/Abdominal Exam GI & Abdominal Exam: Distended, Soft - Rectal Exam Rectal Exam: Deferred
[2016-07-24 08:01] LABS: BASO # 0.1 K/uL (0.0-0.2); BASO % 0.9 % (0.0-2.0); EOS # 0.4 K/uL (0.0-0.7); EOS % 4.7 % (0.0-4.0); HEMOGLOBIN 12.3 g/dL (12.0-18.0); LYMPH # 2.1 K/uL (1.0-4.3); LYMPH % 26.7 % (20.0-40.0); MEAN CELL VOLUME 90.3 fL (80.0-94.0); MEAN CORPUSCULAR HEMOGLOBIN 29.8 pg (27.0-31.0); MEAN CORPUSCULAR HGB CONC 32.9 g/dL (33.0-37.0); MEAN PLATELET VOLUME 8.3 fL (7.2-11.7); MONO # 0.7 K/uL (0.0-0.8); MONO % 9.2 % (0.0-10.0); NEUT # 4.6 K/uL (1.8-7.0); NEUT % 58.5 % (50.0-75.0); NRBC % 0.1 % (0.0-2.0); RBC 4.14 Mil/uL (4.40-5.90); RED CELL DISTRIBUTION WIDTH 14.6 % (11.5-14.5); WHITE BLOOD COUNT 7.8 K/uL (4.8-10.8)
[2016-07-24 08:10] LABS: ALBUMIN 3.8 g/dL (3.5-5.0)
[2016-07-24 08:12] LABS: GFR NON-AFRICAN AMERICAN > 60
[2016-07-24 08:13] LABS: ALT/SGPT 125 U/L (21-72); AST/SGOT 50 U/L (17-59); BLOOD UREA NITROGEN 17 mg/dL (9-20)
[2016-07-24 08:14] LABS: CALCIUM 8.7 mg/dl (8.6-10.4)
[2016-07-24 08:16] LABS: ALB/GLOB RATIO 0.8 (1.0-2.1)
[2016-07-24] MEDS: levETIRAcetam 100 mg/ml (5ml) Oral Syringe PEG SCH ×2 (10:28→17:50)
--- NOTE | 2016-07-24 14:28 | CP.PCM.PN ---
<JonnaCarolannkevin - Last Filed: 07/24/16 14:29> Subjective - Date & Time of Evaluation Date of Evaluation: 07/24/16 Time of Evaluation: 07:05 - Subjective Subjective: PGY-[address] Ying's service Pt seen and evaluated at bedside. No acute events overnight. No changes in presentation. Contact isolation remains in place for MDRO in urine culture. Patient is minimally responsive to tactile stimuli and nonresponsive to verbal stimuli secondary to anoxic brain injury. Patient turned Q2H per nursing team to prevent bed sores. No ROS obtained at this time due to anoxic brain injury. Objective - Vital Signs/Intake and Output Vital Signs (last 24 hours): Temp Pulse Resp BP Pulse Ox 97.3 F L 66 18 135/81 100 07/24/16 07:00 07/24/16 07:00 07/24/16 07:00 07/24/16 07:00 07/24/16 07:00 Intake and Output: 07/24/16 07/24/16 06:59 18:59 Intake Total 440 Output Total 200 Balance 240 - Medications Medications: Current Medications Aspirin (Aspirin Chewable) 81 mg PEG DAILY [facility] Last Admin: 07/24/16 10:24 Dose: 81 mg Carvedilol (Coreg) 3.125 mg PO BID [facility] Last Admin: 07/24/16 10:24 Dose: 3.125 mg Clopidogrel Bisulfate (Plavix) 75 mg PEG DAILY [facility] Last Admin: 07/24/16 10:24 Dose: 75 mg Famotidine (Pepcid) 20 mg PEG BID [facility] Last Admin: 07/24/16 10:24 Dose: 20 mg Lactulose (Enulose) 20 gm PEG HS [facility] Last Admin: 07/14/16 21:40 Dose: 20 gm Levetiracetam (Keppra) 500 mg PEG BID [facility] Last Admin: 07/24/16 10:28 Dose: 500 mg Mupirocin (Bactroban Ointment) 0 gm TOP DAILY [facility] Last Admin: 07/24/16 10:25 Dose: 1 applic Polyethylene Glycol (Miralax) 17 gm PO QPM [facility] Last Admin: 07/22/16 17:46 Dose: 17 gm - Labs Labs: 07/24/16 07:40 07/24/16 07:45 PT 10.6 SECONDS (9.7-12.2) 11/24/15 14:10 INR 1.0 11/24/15 14:10 APTT 25 SECONDS (21-34) 11/24/15 14:10 - Constitutional Appears: Non-toxic, No Acute Distress, Older Than Stated Age - Head Exam Head Exam: NORMAL INSPECTION - Eye Exam Eye Exam: EOMI - ENT Exam ENT Exam: Mucous Membranes Moist - Neck Exam Neck Exam: absent: Lymphadenopathy Additional comments: Trach in place with dressing intact- little secretions at this time - Respiratory Exam Respiratory Exam: NORMAL BREATHING PATTERN. absent: Decreased Breath Sounds - Cardiovascular Exam Cardiovascular Exam: +S1, +S2. absent: Tachycardia, Murmur - GI/Abdominal Exam GI & Abdominal Exam: Soft. absent: Guarding, Rigid, Tenderness - Rectal Exam Rectal Exam: absent: Fecal Impaction - Extremities Exam Extremities Exam: Normal Capillary Refill. absent: Full ROM, Joint Swelling Additional comments: Boots in place to prevent heel ulceration - Back Exam Back Exam: absent: Full ROM - Neurological Exam Neurological Exam: Alert, Awake, Normal Gait, Oriented x3 Additional comments: Patient non-responsive to verbal stimuli, but can grimace to painful stimuli - Psychiatric Exam Psychiatric exam: Flat Affect - Skin Skin Exam: Dry, Warm Additional comments: Warm (UE and LE B/L ). Assessment and Plan - Assessment and Plan (Free Text) Assessment: 1) Upper GI bleed Assessment & Plan: Stable at this time Tube feeds maintained at 40cc/hr (6 hours on with 2 hours of bowel rest), no residual Trach culture - Gram negative patsy (prelim results) WBC down trending. Afebrile GI consulted: Dr. Fermin, Appreciate recs: No melena, or overt rectal bleeding, H/H stable. May reconsult as necessary Cleared to start ASA and Plavix. H&H stable Continue to monitor 2) Hypokalemia Assessment & Plan: Resolved, continue to monitor. 3) Abdominal Distension Assessment & Plan: Resolved. continue to monitor 07/23: Feeds are 6 hours off and 2 hours off. Acknowledgment of note per JANET Balderas. These current feeding recommendations were set because patient was having significant residuals with a more sustained feeding schedule hourly. Miralax and Lactulose held at this point. Will attempt daily weights. Pre Albumin and routine labs ordered- Considerations appreciated 07/18: Continue feedings. Continue with Miralax 17g PEG qHS 07/17: Maintenance fluid: D5/NS @20cc/hr was DC; Continue feedings 07/16: Tube feedings resumed at 40cc/hr (4hr on, 4hr off). Continue with Miralax 17g PEG qHS 07/15: Gentamicin and Primaxin were DC today. No PICC line needed. Increased feeding to 40cc/hr (4hr on, 4hr off). 07/14: Nursing reports 2 BMs on 07/12. Hyperactive bowel sounds. Will d/c senna. Lactulose was held. Continue with Miralax 17g PEG qHS ID on case, Dr. Walden - rx in progress, adjust gentamicin to 100mg q24, Primaxin IVPB Q6H Prior: Still no BM. Miralax 17g PEG qNight. Senna syrup 5ml PEG BID, will reduce senna regimen to every 3rd day once patient has a BM 07/09: colace tid, lactulose once at night 07/07: Stopped feeds and PEG medications due to coffee ground emesis via PEG. 07/06: Feeds will be resume at 10cc/hr for 4 hours then off 4 hours ( intermittent trickle feeding) 07/05: Continue current management 07/04: distention improving. Repeat Abd X-ray inconclusive. 07/03: Tube feeds were stopped and suction started due possibility of partial obstruction. 07/02 Abd xray - fecal impaction, will order another abdominal x- ray. f/u results. Stopped Miralax, Stopped Senna, stopped pepcid. 07/02: Some resolution of distension 07/01: starting Lactulose QID until BM 06/30: Abd x-ray: Fecal impaction present. Consider disimpaction vs. Miralax vs Senna. Start Miralax qHS and Senna q72hrs for suspected constipation. 06/27: bladder scan <15cc urine 06/28: abd u/s findings consistent with fatty hepatic infiltration. There are 2 hepatic calcification nonspecific; r/o prior exposure to a granulomatous disease [pls see full report] baker in place 4) Anoxic encephalopathy Assessment & Plan: Chronic No acute changes: continue with q2h turning, therapy, feeds through PEG site and suctioning trach routinely continue to monitor weekly labs Pending placement (5) Respiratory failure Assessment & Plan: Trach culture grew gram negative rods -ID, Dr. Walden recommendations. Continue trach care and suctioning as needed. Continue current management CXR shows atelectasis. Monitor (6) CAD (coronary artery disease) Assessment & Plan: Continue current management. s/p cardiac stents on 06/13/15 Continue ASA 81mg via PEG daily Carvedilol 3.125mg PO BID Continue Plavix 75mg via PEG daily (7) Seizures Assessment & Plan: Stable at this time Continue Keppra 500mg PEG BID for seizure prophylaxis Phenytoin d/c due to continued inc in LFT's Continue to monitor (8) Bed sore Assessment & Plan: Resolved, Continue current management Continue to turn patient q2hrs Monitor with skin checks (9) Prophylactic measure Assessment & Plan: Pepcid 20 mg PEG BID SCDs Boots in place -RITO ToussaintY-1 <Donnell Ying - Last Filed: 07/24/16 17:16> Objective - Vital Signs/Intake and Output Vital Signs (last 24 hours): Temp Pulse Resp BP Pulse Ox 97.7 F 62 20 115/73 99 07/24/16 15:59 07/24/16 16:56 07/24/16 15:59 07/24/16 15:59 07/24/16 15:59 Intake and Output: 07/24/16 07/24/16 06:59 18:59 Intake Total 440 420 Output Total 200 Balance 240 420 - Medications Medications: Current Medications Aspirin (Aspirin Chewable) 81 mg PEG DAILY [facility] Last Admin: 07/24/16 10:24 Dose: 81 mg Carvedilol (Coreg) 3.125 mg PO BID [facility] Last Admin: 07/24/16 10:24 Dose: 3.125 mg Clopidogrel Bisulfate (Plavix) 75 mg PEG DAILY [facility] Last Admin: 07/24/16 10:24 Dose: 75 mg Famotidine (Pepcid) 20 mg PEG BID [facility] Last Admin: 07/24/16 10:24 Dose: 20 mg Lactulose (Enulose) 20 gm PEG HS [facility] Last Admin: 07/14/16 21:40 Dose: 20 gm Levetiracetam (Keppra) 500 mg PEG BID [facility] Last Admin: 07/24/16 10:28 Dose: 500 mg Mupirocin (Bactroban Ointment) 0 gm TOP DAILY [facility] Last Admin: 07/24/16 10:25 Dose: 1 applic Polyethylene Glycol (Miralax) 17 gm PO QPM [facility] Last Admin: 07/22/16 17:46 Dose: 17 gm - Labs Labs: 07/24/16 07:40 07/24/16 07:45 PT 10.6 SECONDS (9.7-12.2) 11/24/15 14:10 INR 1.0 11/24/15 14:10 APTT 25 SECONDS (21-34) 11/24/15 14:10 Attending/Attestation - Attestation I have personally seen and examined this patient.: Yes I have fully participated in the care of the patient.: Yes I have reviewed all pertinent clinical information, including history, physical exam and plan: Yes Notes (Text): 07/24/16 17:16 Patient was seen and examined at bedside with the resident I agree with the above history and physical and assessment/plan but the resident No change in clinical condition Continue current management
--- NOTE | 2016-07-25 07:24 | CP.PCM.PN ---
<JonnaCarolannkevin - Last Filed: 07/25/16 19:37> Subjective - Date & Time of Evaluation Date of Evaluation: 07/25/16 Time of Evaluation: 05:47 - Subjective Subjective: PGY-[address] Ying's service Pt seen and evaluated at bedside. No acute events overnight. No changes in presentation. Contact isolation remains in place for MDRO in urine culture. Patient is minimally responsive to touch and nonresponsive to verbal stimuli secondary to anoxic brain injury. Patient turned Q2H per nursing team to prevent bed sores. No review of symptoms obtained at this time due to anoxic brain injury. Objective - Vital Signs/Intake and Output Vital Signs (last 24 hours): Temp Pulse Resp BP Pulse Ox 98.5 F 68 20 108/71 99 07/24/16 23:49 07/24/16 23:49 07/24/16 23:49 07/24/16 23:49 07/24/16 23:49 Intake and Output: 07/25/16 07/25/16 06:59 18:59 Intake Total 54 Balance 54 - Medications Medications: Current Medications Aspirin (Aspirin Chewable) 81 mg PEG DAILY [facility] Last Admin: 07/24/16 10:24 Dose: 81 mg Carvedilol (Coreg) 3.125 mg PO BID [facility] Last Admin: 07/24/16 17:51 Dose: 3.125 mg Clopidogrel Bisulfate (Plavix) 75 mg PEG DAILY [facility] Last Admin: 07/24/16 10:24 Dose: 75 mg Famotidine (Pepcid) 20 mg PEG BID [facility] Last Admin: 07/24/16 17:51 Dose: 20 mg Lactulose (Enulose) 20 gm PEG HS [facility] Last Admin: 07/14/16 21:40 Dose: 20 gm Levetiracetam (Keppra) 500 mg PEG BID [facility] Last Admin: 07/24/16 17:50 Dose: 500 mg Mupirocin (Bactroban Ointment) 0 gm TOP DAILY [facility] Last Admin: 07/24/16 10:25 Dose: 1 applic Polyethylene Glycol (Miralax) 17 gm PO QPM [facility] Last Admin: 07/22/16 17:46 Dose: 17 gm - Labs Labs: 07/24/16 07:40 07/24/16 07:45 PT 10.6 SECONDS (9.7-12.2) 11/24/15 14:10 INR 1.0 11/24/15 14:10 APTT 25 SECONDS (21-34) 11/24/15 14:10 - Constitutional Appears: No Acute Distress - Head Exam Head Exam: NORMAL INSPECTION - Eye Exam Eye Exam: EOMI, PERRL - ENT Exam ENT Exam: Mucous Membranes Moist - Neck Exam Neck Exam: absent: Lymphadenopathy Additional comments: Trach in place with dressing intact- there are minimal secretions at this time - Respiratory Exam Respiratory Exam: NORMAL BREATHING PATTERN. absent: Decreased Breath Sounds, Wheezes - Cardiovascular Exam Cardiovascular Exam: +S1, +S2. absent: Tachycardia, Murmur - GI/Abdominal Exam GI & Abdominal Exam: Soft, Normal Bowel Sounds. absent: Guarding, Rigid - Rectal Exam Rectal Exam: absent: Black Stool, Bloody Stool - Extremities Exam Extremities Exam: Full ROM, Joint Swelling, Normal Capillary Refill Additional comments: boots in place on feet bilaterally to prevent ulceration - Back Exam Back Exam: absent: Full ROM - Neurological Exam Neurological Exam: Awake. absent: Normal Gait Additional comments: Patient non-responsive to verbal stimuli, but can grimace to painful stimuli - Psychiatric Exam Psychiatric exam: Flat Affect Additional comments: Warm LE B/L, cool hands b/l. - Skin Skin Exam: Dry, Normal Color Assessment and Plan - Assessment and Plan (Free Text) Assessment: 1) Upper GI bleed Assessment & Plan: Stable at this time Tube feeds maintained at 40cc/hr (6 hours on with 2 hours of bowel rest), no residual Trach culture - Gram negative patsy (prelim results) WBC down trending. Afebrile GI consulted: Dr. Fermin, Appreciate recs: No melena, or overt rectal bleeding, H/H stable. May reconsult as necessary Cleared to start ASA and Plavix. H&H stable Continue to monitor 2) Abdominal Distension Assessment & Plan: Resolved. continue to monitor 07/23: Feeds are 6 hours off and 2 hours off. Acknowledgment of note per JANET Balderas. These current feeding recommendations were set because patient was having significant residuals with a more sustained feeding schedule hourly. Miralax and Lactulose held at this point. Will attempt daily weights. Pre Albumin and routine labs ordered- Considerations appreciated 07/18: Continue feedings. Continue with Miralax 17g PEG qHS 07/17: Maintenance fluid: D5/NS @20cc/hr was DC; Continue feedings 07/16: Tube feedings resumed at 40cc/hr (4hr on, 4hr off). Continue with Miralax 17g PEG qHS 07/15: Gentamicin and Primaxin were DC today. No PICC line needed. Increased feeding to 40cc/hr (4hr on, 4hr off). 07/14: Nursing reports 2 BMs on 07/12. Hyperactive bowel sounds. Will d/c senna. Lactulose was held. Continue with Miralax 17g PEG qHS ID on case, Dr. Walden - rx in progress, adjust gentamicin to 100mg q24, Primaxin IVPB Q6H Prior: Still no BM. Miralax 17g PEG qNight. Senna syrup 5ml PEG BID, will reduce senna regimen to every 3rd day once patient has a BM 07/09: colace tid, lactulose once at night 07/07: Stopped feeds and PEG medications due to coffee ground emesis via PEG. 07/06: Feeds will be resume at 10cc/hr for 4 hours then off 4 hours ( intermittent trickle feeding) 07/05: Continue current management 07/04: distention improving. Repeat Abd X-ray inconclusive. 07/03: Tube feeds were stopped and suction started due possibility of partial obstruction. 07/02 Abd xray - fecal impaction, will order another abdominal x- ray. f/u results. Stopped Miralax, Stopped Senna, stopped pepcid. 07/02: Some resolution of distension 07/01: starting Lactulose QID until BM 06/30: Abd x-ray: Fecal impaction present. Consider disimpaction vs. Miralax vs Senna. Start Miralax qHS and Senna q72hrs for suspected constipation. 06/27: bladder scan <15cc urine 06/28: abd u/s findings consistent with fatty hepatic infiltration. There are 2 hepatic calcification nonspecific; r/o prior exposure to a granulomatous disease [pls see full report] baker in place 3) Anoxic encephalopathy Assessment & Plan: Chronic No acute changes: continue with q2h turning, therapy, feeds through PEG site and suctioning trach routinely continue to monitor weekly labs Pending placement (4) Respiratory failure Assessment & Plan: Trach culture grew gram negative rods -ID, Dr. Walden recommendations. Continue trach care and suctioning as needed. Continue current management CXR shows atelectasis. Monitor (5) CAD (coronary artery disease) Assessment & Plan: Continue current management. s/p cardiac stents on 06/13/15 Continue ASA 81mg via PEG daily Carvedilol 3.125mg PO BID Continue Plavix 75mg via PEG daily (6) Seizures Assessment & Plan: Stable at this time Continue Keppra 500mg PEG BID for seizure prophylaxis Phenytoin d/c due to continued inc in LFT's Continue to monitor (7) Bed sore Assessment & Plan: Resolved, Continue current management Continue to turn patient q2hrs Monitor with skin checks (8) Prophylactic measure Assessment & Plan: Pepcid 20 mg PEG BID SCDs Boots in place -Demetrice Coyle PGY-1 <Donnell Ying - Last Filed: 07/26/16 08:32> Objective - Vital Signs/Intake and Output Vital Signs (last 24 hours): Temp Pulse Resp BP Pulse Ox 99.0 F 63 20 129/68 99 07/26/16 07:52 07/26/16 07:52 07/26/16 07:52 07/26/16 07:52 07/26/16 07:52 - Medications Medications: Current Medications Aspirin (Aspirin Chewable) 81 mg PEG DAILY [facility] Last Admin: 07/25/16 10:02 Dose: 81 mg Carvedilol (Coreg) 3.125 mg PO BID [facility] Last Admin: 07/25/16 17:13 Dose: 3.125 mg Clopidogrel Bisulfate (Plavix) 75 mg PEG DAILY [facility] Last Admin: 07/25/16 10:02 Dose: 75 mg Famotidine (Pepcid) 20 mg PEG BID [facility] Last Admin: 07/25/16 17:13 Dose: 20 mg Lactulose (Enulose) 20 gm PEG HS [facility] Last Admin: 07/14/16 21:40 Dose: 20 gm Levetiracetam (Keppra) 500 mg PEG BID [facility] Last Admin: 07/25/16 17:13 Dose: 500 mg Mupirocin (Bactroban Ointment) 0 gm TOP DAILY [facility] Last Admin: 07/25/16 10:03 Dose: 1 applic Polyethylene Glycol (Miralax) 17 gm PO QPM [facility] Last Admin: 07/22/16 17:46 Dose: 17 gm - Labs Labs: 07/26/16 07:09 07/26/16 07:09 PT 10.6 SECONDS (9.7-12.2) 11/24/15 14:10 INR 1.0 11/24/15 14:10 APTT 25 SECONDS (21-34) 11/24/15 14:10 Attending/Attestation - Attestation I have personally seen and examined this patient.: Yes I have fully participated in the care of the patient.: Yes I have reviewed all pertinent clinical information, including history, physical exam and plan: Yes Notes (Text): 07/26/16 08:32 Patient was seen and examined at bedside with the resident No change in clinical condition ID evaluation noted Continue current management Turn and position every 2 hours to prevent decubitus ulcers
[2016-07-25 07:43] LABS: BASO # 0.1 K/uL (0.0-0.2); BASO % 0.7 % (0.0-2.0); EOS # 0.4 K/uL (0.0-0.7); EOS % 3.7 % (0.0-4.0); HEMOGLOBIN 12.5 g/dL (12.0-18.0); LYMPH # 1.8 K/uL (1.0-4.3); LYMPH % 16.7 % (20.0-40.0); MEAN CELL VOLUME 90.7 fL (80.0-94.0); MEAN CORPUSCULAR HEMOGLOBIN 30.2 pg (27.0-31.0); MEAN CORPUSCULAR HGB CONC 33.3 g/dL (33.0-37.0); MEAN PLATELET VOLUME 8.6 fL (7.2-11.7); MONO # 0.8 K/uL (0.0-0.8); MONO % 6.9 % (0.0-10.0); NEUT # 7.9 K/uL (1.8-7.0); NRBC % 0.1 % (0.0-2.0); RBC 4.15 Mil/uL (4.40-5.90); RED CELL DISTRIBUTION WIDTH 14.9 % (11.5-14.5)
[2016-07-25 08:05] LABS: ALBUMIN 3.7 g/dL (3.5-5.0)
[2016-07-25 08:07] LABS: GFR NON-AFRICAN AMERICAN > 60
[2016-07-25 08:08] LABS: ALB/GLOB RATIO 0.8 (1.0-2.1); ALT/SGPT 118 U/L (21-72); AST/SGOT 53 U/L (17-59); BLOOD UREA NITROGEN 16 mg/dL (9-20); CALCIUM 8.6 mg/dl (8.6-10.4)
[2016-07-25] MEDS: levETIRAcetam 100 mg/ml (5ml) Oral Syringe PEG SCH ×2 (10:13→17:13)
--- NOTE | 2016-07-25 15:48 | CP.PCM.PN ---
Subjective - Date & Time of Evaluation Date of Evaluation: 07/25/16 Time of Evaluation: 10:00 - Subjective Subjective: has MDRO sputum/ urine- likely colonized cont present management Objective - Vital Signs/Intake and Output Vital Signs (last 24 hours): Temp Pulse Resp BP Pulse Ox 98.8 F 75 20 105/69 100 07/25/16 08:27 07/25/16 08:27 07/25/16 08:27 07/25/16 08:27 07/25/16 08:27 Intake and Output: 07/25/16 07/25/16 06:59 18:59 Intake Total 54 Balance 54 - Medications Medications: Current Medications Aspirin (Aspirin Chewable) 81 mg PEG DAILY [facility] Last Admin: 07/25/16 10:02 Dose: 81 mg Carvedilol (Coreg) 3.125 mg PO BID [facility] Last Admin: 07/25/16 10:02 Dose: 3.125 mg Clopidogrel Bisulfate (Plavix) 75 mg PEG DAILY [facility] Last Admin: 07/25/16 10:02 Dose: 75 mg Famotidine (Pepcid) 20 mg PEG BID [facility] Last Admin: 07/25/16 10:02 Dose: 20 mg Lactulose (Enulose) 20 gm PEG HS [facility] Last Admin: 07/14/16 21:40 Dose: 20 gm Levetiracetam (Keppra) 500 mg PEG BID [facility] Last Admin: 07/25/16 10:13 Dose: 500 mg Mupirocin (Bactroban Ointment) 0 gm TOP DAILY [facility] Last Admin: 07/25/16 10:03 Dose: 1 applic Polyethylene Glycol (Miralax) 17 gm PO QPM [facility] Last Admin: 07/22/16 17:46 Dose: 17 gm - Labs Labs: 07/25/16 07:19 07/25/16 07:19 PT 10.6 SECONDS (9.7-12.2) 11/24/15 14:10 INR 1.0 11/24/15 14:10 APTT 25 SECONDS (21-34) 11/24/15 14:10 - Constitutional Appears: Confused, Chronically Ill - Eye Exam Eye Exam: absent: Scleral icterus - ENT Exam ENT Exam: Mucous Membranes Dry - Neck Exam Neck Exam: absent: Lymphadenopathy - Respiratory Exam Respiratory Exam: Decreased Breath Sounds, Rhonchi - Cardiovascular Exam Cardiovascular Exam: REGULAR RHYTHM, +S1, +S2 - GI/Abdominal Exam GI & Abdominal Exam: Distended, Soft Assessment and Plan - Assessment and Plan (Free Text) Plan: cont rx reculture for fever
[2016-07-26 07:48] LABS: BASO # 0.1 K/uL (0.0-0.2); BASO % 0.6 % (0.0-2.0); EOS # 0.4 K/uL (0.0-0.7); EOS % 4.8 % (0.0-4.0); HEMOGLOBIN 12.4 g/dL (12.0-18.0); LYMPH # 2.3 K/uL (1.0-4.3); LYMPH % 28.6 % (20.0-40.0); MEAN CELL VOLUME 90.5 fL (80.0-94.0); MEAN CORPUSCULAR HEMOGLOBIN 29.4 pg (27.0-31.0); MEAN CORPUSCULAR HGB CONC 32.4 g/dL (33.0-37.0); MEAN PLATELET VOLUME 8.9 fL (7.2-11.7); MONO # 0.9 K/uL (0.0-0.8); MONO % 10.8 % (0.0-10.0); NEUT # 4.5 K/uL (1.8-7.0); NEUT % 55.2 % (50.0-75.0); NRBC % 0.1 % (0.0-2.0); RBC 4.2 Mil/uL (4.40-5.90); RED CELL DISTRIBUTION WIDTH 14.7 % (11.5-14.5); WHITE BLOOD COUNT 8.1 K/uL (4.8-10.8)
[2016-07-26 08:00] LABS: ALBUMIN 3.8 g/dL (3.5-5.0)
[2016-07-26 08:02] LABS: GFR NON-AFRICAN AMERICAN > 60
[2016-07-26 08:03] LABS: ALB/GLOB RATIO 0.8 (1.0-2.1); ALT/SGPT 110 U/L (21-72); AST/SGOT 44 U/L (17-59); BLOOD UREA NITROGEN 16 mg/dL (9-20); CALCIUM 8.8 mg/dl (8.6-10.4)
[2016-07-26] MEDS: levETIRAcetam 100 mg/ml (5ml) Oral Syringe PEG SCH ×2 (10:16→18:00)
--- NOTE | 2016-07-26 13:36 | CP.PCM.PN ---
<May Robles - Last Filed: 07/26/16 13:32> Subjective - Date & Time of Evaluation Date of Evaluation: 07/26/16 Time of Evaluation: 11:15 - Subjective Subjective: PGY3 Medicine progress note: Dr Ying Patient seen at bedside. No overnight events. Patient not oriented and not responsive to command. Tube feeding in place. Objective - Vital Signs/Intake and Output Vital Signs (last 24 hours): Temp Pulse Resp BP Pulse Ox 99.0 F 63 20 129/68 99 07/26/16 07:52 07/26/16 07:52 07/26/16 07:52 07/26/16 07:52 07/26/16 07:52 - Medications Medications: Current Medications Aspirin (Aspirin Chewable) 81 mg PEG DAILY [facility] Last Admin: 07/26/16 10:16 Dose: 81 mg Carvedilol (Coreg) 3.125 mg PO BID [facility] Last Admin: 07/26/16 10:16 Dose: 3.125 mg Clopidogrel Bisulfate (Plavix) 75 mg PEG DAILY [facility] Last Admin: 07/26/16 10:16 Dose: 75 mg Famotidine (Pepcid) 20 mg PEG BID [facility] Last Admin: 07/26/16 10:16 Dose: 20 mg Lactulose (Enulose) 20 gm PEG HS [facility] Last Admin: 07/14/16 21:40 Dose: 20 gm Levetiracetam (Keppra) 500 mg PEG BID [facility] Last Admin: 07/26/16 10:16 Dose: 500 mg Mupirocin (Bactroban Ointment) 0 gm TOP DAILY [facility] Last Admin: 07/26/16 10:26 Dose: 1 applic Polyethylene Glycol (Miralax) 17 gm PO QPM [facility] Last Admin: 07/22/16 17:46 Dose: 17 gm - Labs Labs: 07/26/16 07:09 07/26/16 07:09 PT 10.6 SECONDS (9.7-12.2) 11/24/15 14:10 INR 1.0 11/24/15 14:10 APTT 25 SECONDS (21-34) 11/24/15 14:10 - Constitutional Appears: Chronically Ill - Head Exam Head Exam: NORMAL INSPECTION, NORMOCEPHALIC - Eye Exam Eye Exam: Normal appearance - ENT Exam ENT Exam: Mucous Membranes Dry - Neck Exam Additional comments: +trach - Respiratory Exam Respiratory Exam: Rhonchi, NORMAL BREATHING PATTERN. absent: Rales, Wheezes - Cardiovascular Exam Cardiovascular Exam: REGULAR RHYTHM. absent: Murmur - GI/Abdominal Exam GI & Abdominal Exam: Soft. absent: Distended, Guarding, Tenderness Additional comments: + PEG tube - Extremities Exam Additional comments: Boots in place. - Neurological Exam Neurological Exam: absent: Alert, Oriented x3 - Skin Skin Exam: Dry, Warm Assessment and Plan - Assessment and Plan (Free Text) Assessment: 1) Upper GI bleed Assessment & Plan: No new episodes of bleed Tube feeds maintained at 40cc/hr (6 hours on with 2 hours of bowel rest), no residual Trach culture - Gram negative patsy (prelim results) Afebrile GI consulted: Dr. Fermin, signed off, will reconsult if needed. Cleared to start ASA and Plavix. H&H stable Continue to monitor 2) Abdominal Distension Assessment & Plan: Resolved. continue to monitor 07/23: Feeds are 6 hours off and 2 hours off. Acknowledgment of note per JANET Balderas. These current feeding recommendations were set because patient was having significant residuals with a more sustained feeding schedule hourly. Miralax and Lactulose held at this point. Will attempt daily weights. Pre Albumin and routine labs ordered- Considerations appreciated 07/18: Continue feedings. Continue with Miralax 17g PEG qHS 3) Anoxic encephalopathy Assessment & Plan: unchanged. No acute changes: continue with q2h turning, therapy, feeds through PEG site and suctioning trach routinely continue to monitor weekly labs Pending placement (4) Respiratory failure Assessment & Plan: Trach culture grew gram negative rods -ID, Dr. Walden recommendations. Continue trach care and suctioning as needed. Continue current management CXR shows atelectasis. Monitor (5) CAD (coronary artery disease) Assessment & Plan: Continue current management. s/p cardiac stents on 06/13/15 Continue ASA 81mg via PEG daily Carvedilol 3.125mg PO BID Continue Plavix 75mg via PEG daily (6) Seizures Assessment & Plan: Stable at this time Continue Keppra 500mg PEG BID for seizure prophylaxis Phenytoin d/c due to continued inc in LFT's Continue to monitor (7) Bed sore Assessment & Plan: Resolved, Continue current management Continue to turn patient q2hrs Monitor with skin checks (8) Prophylactic measure Assessment & Plan: Pepcid 20 mg PEG BID SCDs Boots in place <Donnell Ying - Last Filed: 07/26/16 15:23> Objective - Vital Signs/Intake and Output Vital Signs (last 24 hours): Temp Pulse Resp BP Pulse Ox 99.0 F 63 20 129/68 99 07/26/16 07:52 07/26/16 07:52 07/26/16 07:52 07/26/16 07:52 07/26/16 07:52 Intake and Output: 07/26/16 07/26/16 06:59 18:59 Intake Total 350 Balance 350 - Medications Medications: Current Medications Aspirin (Aspirin Chewable) 81 mg PEG DAILY [facility] Last Admin: 07/26/16 10:16 Dose: 81 mg Carvedilol (Coreg) 3.125 mg PO BID [facility] Last Admin: 07/26/16 10:16 Dose: 3.125 mg Clopidogrel Bisulfate (Plavix) 75 mg PEG DAILY [facility] Last Admin: 07/26/16 10:16 Dose: 75 mg Famotidine (Pepcid) 20 mg PEG BID [facility] Last Admin: 07/26/16 10:16 Dose: 20 mg Lactulose (Enulose) 20 gm PEG HS [facility] Last Admin: 07/14/16 21:40 Dose: 20 gm Levetiracetam (Keppra) 500 mg PEG BID [facility] Last Admin: 07/26/16 10:16 Dose: 500 mg Mupirocin (Bactroban Ointment) 0 gm TOP DAILY [facility] Last Admin: 07/26/16 10:26 Dose: 1 applic Polyethylene Glycol (Miralax) 17 gm PO QPM [facility] Last Admin: 07/22/16 17:46 Dose: 17 gm - Labs Labs: 07/26/16 07:09 07/26/16 07:09 PT 10.6 SECONDS (9.7-12.2) 11/24/15 14:10 INR 1.0 11/24/15 14:10 APTT 25 SECONDS (21-34) 11/24/15 14:10 Attending/Attestation - Attestation I have personally seen and examined this patient.: Yes I have fully participated in the care of the patient.: Yes I have reviewed all pertinent clinical information, including history, physical exam and plan: Yes Notes (Text): 07/26/16 15:22 Patient seen and examined at bedside No change in clinical condition Continue current management Turn and position every 2 hours to prevent decubitus ulcers
[2016-07-27 08:07] LABS: ALBUMIN 3.5 g/dL (3.5-5.0)
[2016-07-27 08:09] LABS: GFR NON-AFRICAN AMERICAN > 60
[2016-07-27 08:10] LABS: ALB/GLOB RATIO 0.8 (1.0-2.1); ALT/SGPT 92 U/L (21-72); AST/SGOT 47 U/L (17-59); BLOOD UREA NITROGEN 19 mg/dL (9-20)
[2016-07-27 08:10] LABS: BASO # 0.1 K/uL (0.0-0.2); BASO % 0.6 % (0.0-2.0); EOS # 0.4 K/uL (0.0-0.7); EOS % 3.4 % (0.0-4.0); HEMOGLOBIN 12.6 g/dL (12.0-18.0); LYMPH # 1.7 K/uL (1.0-4.3); LYMPH % 14.6 % (20.0-40.0); MEAN CELL VOLUME 89.8 fL (80.0-94.0); MEAN CORPUSCULAR HEMOGLOBIN 30.1 pg (27.0-31.0); MEAN CORPUSCULAR HGB CONC 33.5 g/dL (33.0-37.0); MEAN PLATELET VOLUME 8.8 fL (7.2-11.7); MONO # 0.8 K/uL (0.0-0.8); NEUT # 8.6 K/uL (1.8-7.0); NEUT % 74.4 % (50.0-75.0); RBC 4.2 Mil/uL (4.40-5.90); RED CELL DISTRIBUTION WIDTH 14.7 % (11.5-14.5); WHITE BLOOD COUNT 11.5 K/uL (4.8-10.8)
[2016-07-27 08:11] LABS: CALCIUM 8.6 mg/dl (8.6-10.4)
--- NOTE | 2016-07-27 09:39 | CP.PCM.PN ---
<May Robles - Last Filed: 07/27/16 09:36> Subjective - Date & Time of Evaluation Date of Evaluation: 07/27/16 Time of Evaluation: 09:36 - Subjective Subjective: PGY3 Medicine note: Dr Ying's service. Patient seen at bedside. Unchanged from prior. Still not responding to command. Tube feeding in progress. No acute overnight events. Objective - Vital Signs/Intake and Output Vital Signs (last 24 hours): Temp Pulse Resp BP Pulse Ox 97.7 F 86 20 129/81 100 07/27/16 07:00 07/27/16 07:00 07/27/16 07:00 07/27/16 07:00 07/27/16 07:00 Intake and Output: 07/27/16 07/27/16 06:59 18:59 Intake Total 860 Balance 860 - Medications Medications: Current Medications Aspirin (Aspirin Chewable) 81 mg PEG DAILY [facility] Last Admin: 07/26/16 10:16 Dose: 81 mg Carvedilol (Coreg) 3.125 mg PO BID [facility] Last Admin: 07/26/16 18:00 Dose: 3.125 mg Clopidogrel Bisulfate (Plavix) 75 mg PEG DAILY [facility] Last Admin: 07/26/16 10:16 Dose: 75 mg Famotidine (Pepcid) 20 mg PEG BID [facility] Last Admin: 07/26/16 18:00 Dose: 20 mg Lactulose (Enulose) 20 gm PEG HS [facility] Last Admin: 07/14/16 21:40 Dose: 20 gm Levetiracetam (Keppra) 500 mg PEG BID [facility] Last Admin: 07/26/16 18:00 Dose: 500 mg Mupirocin (Bactroban Ointment) 0 gm TOP DAILY [facility] Last Admin: 07/26/16 10:26 Dose: 1 applic Polyethylene Glycol (Miralax) 17 gm PO QPM [facility] Last Admin: 07/22/16 17:46 Dose: 17 gm - Labs Labs: 07/27/16 07:51 07/27/16 07:48 PT 10.6 SECONDS (9.7-12.2) 11/24/15 14:10 INR 1.0 11/24/15 14:10 APTT 25 SECONDS (21-34) 11/24/15 14:10 - Constitutional Appears: Chronically Ill - Head Exam Head Exam: NORMAL INSPECTION, NORMOCEPHALIC - Eye Exam Eye Exam: Normal appearance - ENT Exam ENT Exam: Mucous Membranes Dry - Neck Exam Additional comments: Trach - Respiratory Exam Respiratory Exam: Rales, Rhonchi, NORMAL BREATHING PATTERN. absent: Clear to Ausculation Bilateral, Wheezes - Cardiovascular Exam Cardiovascular Exam: REGULAR RHYTHM - GI/Abdominal Exam GI & Abdominal Exam: Soft. absent: Guarding Additional comments: PEG tube in place. No drainage. - Extremities Exam Extremities Exam: absent: Pedal Edema - Neurological Exam Neurological Exam: absent: Oriented x3 Assessment and Plan - Assessment and Plan (Free Text) Assessment: 1) Upper GI bleed Assessment & Plan: No new episodes of bleed Tube feeds maintained at 40cc/hr (6 hours on with 2 hours of bowel rest), no residual Trach culture - Gram negative patsy (prelim results) Afebrile GI consulted: Dr. Fermin, signed off, will reconsult if needed. Cleared to start ASA and Plavix. H&H stable Continue to monitor 2) Abdominal Distension Assessment & Plan: Resolved. continue to monitor 07/23: Feeds are 6 hours off and 2 hours off. Acknowledgment of note per JANET Balderas. These current feeding recommendations were set because patient was having significant residuals with a more sustained feeding schedule hourly. Miralax and Lactulose held at this point. Will attempt daily weights. Pre Albumin and routine labs ordered- Considerations appreciated 07/18: Continue feedings. Continue with Miralax 17g PEG qHS 3) Anoxic encephalopathy Assessment & Plan: unchanged. No acute changes: continue with q2h turning, therapy, feeds through PEG site and suctioning trach routinely continue to monitor weekly labs Pending placement (4) Respiratory failure Assessment & Plan: Trach culture grew gram negative rods -ID, Dr. Walden Continue trach care and suctioning as needed. s/p trach Monitor (5) CAD (coronary artery disease) Assessment & Plan: Continue current management. s/p cardiac stents on 06/13/15 Continue ASA 81mg via PEG daily Carvedilol 3.125mg PO BID Continue Plavix 75mg via PEG daily (6) Seizures Assessment & Plan: Stable at this time Continue Keppra 500mg PEG BID for seizure prophylaxis Phenytoin d/c due to continued inc in LFT's Continue to monitor (7) Bed sore Assessment & Plan: Resolved, Continue current management Continue to turn patient q2hrs Monitor with skin checks (8) Prophylactic measure Assessment & Plan: Pepcid 20 mg PEG BID SCDs Boots in place <Donnell Ying - Last Filed: 07/27/16 15:08> Objective - Vital Signs/Intake and Output Vital Signs (last 24 hours): Temp Pulse Resp BP Pulse Ox 97.7 F 86 20 129/81 100 07/27/16 07:00 07/27/16 07:00 07/27/16 07:00 07/27/16 07:00 07/27/16 07:00 Intake and Output: 07/27/16 07/27/16 06:59 18:59 Intake Total 860 420 Balance 860 420 - Medications Medications: Current Medications Aspirin (Aspirin Chewable) 81 mg PEG DAILY [facility] Last Admin: 07/27/16 11:03 Dose: 81 mg Carvedilol (Coreg) 3.125 mg PO BID [facility] Last Admin: 07/27/16 11:03 Dose: 3.125 mg Clopidogrel Bisulfate (Plavix) 75 mg PEG DAILY [facility] Last Admin: 07/27/16 11:03 Dose: 75 mg Famotidine (Pepcid) 20 mg PEG BID [facility] Last Admin: 07/27/16 11:03 Dose: 20 mg Lactulose (Enulose) 20 gm PEG HS [facility] Last Admin: 07/14/16 21:40 Dose: 20 gm Levetiracetam (Keppra) 500 mg PEG BID [facility] Last Admin: 07/27/16 11:03 Dose: 500 mg Mupirocin (Bactroban Ointment) 0 gm TOP DAILY [facility] Last Admin: 07/27/16 11:04 Dose: 1 applic Polyethylene Glycol (Miralax) 17 gm PO QPM [facility] Last Admin: 07/22/16 17:46 Dose: 17 gm - Labs Labs: 07/27/16 07:51 07/27/16 07:48 PT 10.6 SECONDS (9.7-12.2) 11/24/15 14:10 INR 1.0 11/24/15 14:10 APTT 25 SECONDS (21-34) 11/24/15 14:10 Attending/Attestation - Attestation I have personally seen and examined this patient.: Yes I have fully participated in the care of the patient.: Yes I have reviewed all pertinent clinical information, including history, physical exam and plan: Yes Notes (Text): 07/27/16 15:07 Patient was seen and examined at bedside No change in clinical condition and continue current management Position every 2 hours to prevent decubitus ulcer Continue local care and off for tracheostomy and PEG tube
[2016-07-27] MEDS: levETIRAcetam 100 mg/ml (5ml) Oral Syringe PEG SCH ×2 (11:03→18:00)
--- NOTE | 2016-07-27 15:23 | CP.PCM.PN ---
Subjective - Date & Time of Evaluation Date of Evaluation: 07/27/16 Time of Evaluation: 10:00 - Subjective Subjective: AFEB 'CONT SAME RX Objective - Vital Signs/Intake and Output Vital Signs (last 24 hours): Temp Pulse Resp BP Pulse Ox 97.7 F 86 20 129/81 100 07/27/16 07:00 07/27/16 07:00 07/27/16 07:00 07/27/16 07:00 07/27/16 07:00 Intake and Output: 07/27/16 07/27/16 06:59 18:59 Intake Total 860 420 Balance 860 420 - Medications Medications: Current Medications Aspirin (Aspirin Chewable) 81 mg PEG DAILY [facility] Last Admin: 07/27/16 11:03 Dose: 81 mg Carvedilol (Coreg) 3.125 mg PO BID [facility] Last Admin: 07/27/16 11:03 Dose: 3.125 mg Clopidogrel Bisulfate (Plavix) 75 mg PEG DAILY [facility] Last Admin: 07/27/16 11:03 Dose: 75 mg Famotidine (Pepcid) 20 mg PEG BID [facility] Last Admin: 07/27/16 11:03 Dose: 20 mg Lactulose (Enulose) 20 gm PEG HS [facility] Last Admin: 07/14/16 21:40 Dose: 20 gm Levetiracetam (Keppra) 500 mg PEG BID [facility] Last Admin: 07/27/16 11:03 Dose: 500 mg Mupirocin (Bactroban Ointment) 0 gm TOP DAILY [facility] Last Admin: 07/27/16 11:04 Dose: 1 applic Polyethylene Glycol (Miralax) 17 gm PO QPM [facility] Last Admin: 07/22/16 17:46 Dose: 17 gm - Labs Labs: 07/27/16 07:51 07/27/16 07:48 PT 10.6 SECONDS (9.7-12.2) 11/24/15 14:10 INR 1.0 11/24/15 14:10 APTT 25 SECONDS (21-34) 11/24/15 14:10
--- NOTE | 2016-07-28 00:18 | CP.PCM.PN ---
<Amandeep Lomas - Last Filed: 07/28/16 04:42> Subjective - Date & Time of Evaluation Date of Evaluation: 07/28/16 Time of Evaluation: 00:35 - Subjective Subjective: PGY1 Medicine Note. Patient seen and examined at bedside. Patient continue to remain at baseline, unchanged from prior assessments. Still not responding to command, but seems to open his eyes and observe television. Tube feeding continues. No acute events overnight. Objective - Vital Signs/Intake and Output Vital Signs (last 24 hours): Temp Pulse Resp BP Pulse Ox 97.8 F 69 20 115/79 99 07/27/16 23:33 07/27/16 23:33 07/27/16 23:33 07/27/16 23:33 07/27/16 23:33 Intake and Output: 07/27/16 07/28/16 18:59 06:59 Intake Total 420 520 Output Total 100 Balance 420 420 - Medications Medications: Current Medications Aspirin (Aspirin Chewable) 81 mg PEG DAILY [facility] Last Admin: 07/27/16 11:03 Dose: 81 mg Carvedilol (Coreg) 3.125 mg PO BID [facility] Last Admin: 07/27/16 18:00 Dose: 3.125 mg Clopidogrel Bisulfate (Plavix) 75 mg PEG DAILY [facility] Last Admin: 07/27/16 11:03 Dose: 75 mg Famotidine (Pepcid) 20 mg PEG BID [facility] Last Admin: 07/27/16 18:00 Dose: 20 mg Lactulose (Enulose) 20 gm PEG HS [facility] Last Admin: 07/14/16 21:40 Dose: 20 gm Levetiracetam (Keppra) 500 mg PEG BID [facility] Last Admin: 07/27/16 18:00 Dose: 500 mg Mupirocin (Bactroban Ointment) 0 gm TOP DAILY [facility] Last Admin: 07/27/16 11:04 Dose: 1 applic Polyethylene Glycol (Miralax) 17 gm PO QPM [facility] Last Admin: 07/22/16 17:46 Dose: 17 gm - Labs Labs: 07/27/16 07:51 07/27/16 07:48 PT 10.6 SECONDS (9.7-12.2) 11/24/15 14:10 INR 1.0 11/24/15 14:10 APTT 25 SECONDS (21-34) 01/02/16 14:10 - Constitutional Appears: No Acute Distress, Chronically Ill - Head Exam Head Exam: ATRAUMATIC, NORMAL INSPECTION - Eye Exam Eye Exam: Normal appearance - ENT Exam ENT Exam: Mucous Membranes Dry - Neck Exam Additional comments: trach tube in place. Minor mucous discharge. dressing in tact. - Respiratory Exam Respiratory Exam: Rales, Rhonchi, NORMAL BREATHING PATTERN. absent: Wheezes - Cardiovascular Exam Cardiovascular Exam: REGULAR RHYTHM, +S1, +S2 - GI/Abdominal Exam GI & Abdominal Exam: Soft. absent: Guarding Additional comments: PEG tube in place, in tact, currently no drainage - Rectal Exam Rectal Exam: Deferred - Neurological Exam Neurological Exam: Awake. absent: Alert, Oriented x3 - Skin Skin Exam: Dry, Intact Assessment and Plan - Assessment and Plan (Free Text) Plan: 1) Upper GI bleed Assessment & Plan: No new episodes of bleed. Patient stable. Continue to monitor. Tube feeds maintained at 40cc/hr (6 hours on with 2 hours of bowel rest), no residual Trach culture - Gram negative patsy (prelim results) Afebrile GI consulted: Dr. Fermin, signed off, will reconsult if needed. Cleared to start ASA and Plavix. H&H stable 2) Abdominal Distension Assessment & Plan: Resolved. continue to monitor. Peg tube clean, in place. 07/23: Feeds are 6 hours off and 2 hours off. Acknowledgment of note per JANET Balderas. These current feeding recommendations were set because patient was having significant residuals with a more sustained feeding schedule hourly. Miralax and Lactulose held at this point. Will attempt daily weights. Pre Albumin and routine labs ordered- Considerations appreciated 07/18: Continue feedings. Continue with Miralax 17g PEG qHS 3) Anoxic encephalopathy Assessment & Plan: Unchanged. Continue to monitor weekly labs No acute changes: continue with q2h turning, therapy, feeds through PEG site and suctioning trach routinely Pending placement (4) Respiratory failure Assessment & Plan: Continue trach care and suctioning as needed. Trach culture grew gram negative rods -ID, Dr. Walden s/p trach Monitor (5) CAD (coronary artery disease) Assessment & Plan: Continue current management. s/p cardiac stents on 06/13/15 Continue ASA 81mg via PEG daily Carvedilol 3.125mg PO BID Continue Plavix 75mg via PEG daily (6) Seizures Assessment & Plan: Stable at this time. Position every 2 hours to prevent decubitus ulcer. Continue to monitor Continue Keppra 500mg PEG BID for seizure prophylaxis Phenytoin d/c due to continued inc in LFT's (7) Bed sore Assessment & Plan: Resolved, Continue current management Continue to turn patient q2hrs Monitor with skin checks (8) Prophylactic measure Assessment & Plan: Pepcid 20 mg PEG BID [facility] Boots in place <Nathaniel Beth - Last Filed: 07/28/16 18:03> Objective - Vital Signs/Intake and Output Vital Signs (last 24 hours): Temp Pulse Resp BP Pulse Ox 97.6 F 67 20 139/79 98 07/28/16 15:00 07/28/16 15:00 07/28/16 15:00 07/28/16 15:00 07/28/16 15:00 Intake and Output: 07/28/16 07/28/16 06:59 18:59 Intake Total 760 280 Output Total 400 5 Balance 360 275 - Medications Medications: Current Medications Aspirin (Aspirin Chewable) 81 mg PEG DAILY [facility] Last Admin: 07/28/16 10:16 Dose: 81 mg Carvedilol (Coreg) 3.125 mg PO BID [facility] Last Admin: 07/28/16 17:17 Dose: 3.125 mg Clopidogrel Bisulfate (Plavix) 75 mg PEG DAILY [facility] Last Admin: 07/28/16 10:16 Dose: 75 mg Famotidine (Pepcid) 20 mg PEG BID [facility] Last Admin: 07/28/16 17:17 Dose: 20 mg Lactulose (Enulose) 20 gm PEG HS [facility] Last Admin: 07/14/16 21:40 Dose: 20 gm Levetiracetam (Keppra) 500 mg PEG BID [facility] Last Admin: 07/28/16 17:17 Dose: 500 mg Mupirocin (Bactroban Ointment) 0 gm TOP DAILY [facility] Last Admin: 07/28/16 10:17 Dose: 1 applic Polyethylene Glycol (Miralax) 17 gm PO QPM [facility] Last Admin: 07/22/16 17:46 Dose: 17 gm - Labs Labs: 07/27/16 07:51 07/27/16 07:48 PT 10.6 SECONDS (9.7-12.2) 11/24/15 14:10 INR 1.0 11/24/15 14:10 APTT 25 SECONDS (21-34) 11/24/15 14:10 Attending/Attestation - Attestation I have personally seen and examined this patient.: Yes I have fully participated in the care of the patient.: Yes I have reviewed all pertinent clinical information, including history, physical exam and plan: Yes Notes (Text): Patient seen and examined; I agree with the resident's assessment/plan as above with the following additions/edits: Patient with anoxic encephalopathy following cardiac arrest, with prolonged hospital course (>1 year) due to placement issues; Medically stable; still with mild elevation in trasaminases but stable; viral hepatitis panel negative; phenytoin was held to assess for improvement but transaminases actually increased thereafter only to improve spontaneously; Now on keppra for seizure prophylaxis; Minimal excoriation on sacrum, no overt ulceration; BP stable on low dose coreg (3.125 mg bid for decreased systolic function); Mild hypernatremia; ~1 L free water deficit; no diarrhea or polyuria; will start free water via PEG tube, 100 cc during periods of bowel rest; 07/28/16 17:56
[2016-07-28] MEDS: levETIRAcetam 100 mg/ml (5ml) Oral Syringe PEG SCH ×2 (10:22→17:17)
--- NOTE | 2016-07-29 07:33 | CP.PCM.PN ---
<Alex Coyle - Last Filed: 07/29/16 21:37> Subjective - Date & Time of Evaluation Date of Evaluation: 07/29/16 Time of Evaluation: 06:23 - Subjective Subjective: PGY [address] Beth's service Pt seen and examined in no acute distress. Patient has no changes in baseline at this time. No acute events overnight. No fever, no chills noted. Contact isolation for MDRO in urine culture. Patient is minimally responsive to tactile stimuli and nonresponsive to verbal stimuli secondary to anoxic brain injury. Patient is turned every 2 hours per nursing team to prevent bed sores. Objective - Vital Signs/Intake and Output Vital Signs (last 24 hours): Temp Pulse Resp BP Pulse Ox 97.7 F 85 20 121/70 99 07/29/16 00:04 07/29/16 00:04 07/29/16 00:04 07/29/16 00:04 07/29/16 00:04 Intake and Output: 07/29/16 07/29/16 06:59 18:59 Intake Total 440 Output Total 700 Balance -260 - Medications Medications: Current Medications Aspirin (Aspirin Chewable) 81 mg PEG DAILY [facility] Last Admin: 07/28/16 10:16 Dose: 81 mg Carvedilol (Coreg) 3.125 mg PO BID [facility] Last Admin: 07/28/16 17:17 Dose: 3.125 mg Clopidogrel Bisulfate (Plavix) 75 mg PEG DAILY [facility] Last Admin: 07/28/16 10:16 Dose: 75 mg Famotidine (Pepcid) 20 mg PEG BID [facility] Last Admin: 07/28/16 17:17 Dose: 20 mg Lactulose (Enulose) 20 gm PEG HS [facility] Last Admin: 07/14/16 21:40 Dose: 20 gm Levetiracetam (Keppra) 500 mg PEG BID [facility] Last Admin: 07/28/16 17:17 Dose: 500 mg Mupirocin (Bactroban Ointment) 0 gm TOP DAILY [facility] Last Admin: 07/28/16 10:17 Dose: 1 applic Polyethylene Glycol (Miralax) 17 gm PO QPM [facility] Last Admin: 07/22/16 17:46 Dose: 17 gm - Labs Labs: 07/27/16 07:51 07/27/16 07:48 PT 10.6 SECONDS (9.7-12.2) 11/24/15 14:10 INR 1.0 11/24/15 14:10 APTT 25 SECONDS (21-34) 11/24/15 14:10 - Constitutional Appears: No Acute Distress - Head Exam Head Exam: NORMAL INSPECTION - Eye Exam Eye Exam: PERRL Pupil Exam: absent: Fixed - ENT Exam ENT Exam: Mucous Membranes Moist - Neck Exam Neck Exam: absent: Lymphadenopathy Additional comments: Trach in place with dressing intact- there are minimal secretions at this time - Respiratory Exam Respiratory Exam: NORMAL BREATHING PATTERN. absent: Wheezes - Cardiovascular Exam Cardiovascular Exam: +S1, +S2. absent: Tachycardia, Murmur - GI/Abdominal Exam GI & Abdominal Exam: Soft, Normal Bowel Sounds. absent: Guarding - Rectal Exam Rectal Exam: absent: Black Stool, Bloody Stool - Extremities Exam Extremities Exam: Normal Capillary Refill. absent: Joint Swelling Additional comments: boots in place on feet b/l to prevent ulceration - Back Exam Back Exam: absent: Full ROM - Neurological Exam Neurological Exam: Altered Additional comments: Patient non-responsive to verbal stimuli, but can grimace to painful stimuli - Psychiatric Exam Psychiatric exam: Flat Affect - Skin Skin Exam: Normal Color, Warm Additional comments: Warm UE and LE B/L Assessment and Plan - Assessment and Plan (Free Text) Assessment: 1) Upper GI bleed Assessment & Plan: No new episodes of bleed. Patient stable. Continue to monitor. Tube feeds increased to at 60cc/hr (6 hours on with 2 hours of bowel rest), no residual. Pt to begin 100cc of free water via PEG in between feeds Trach culture - Gram negative patsy (prelim results) Afebrile GI consulted: Dr. Fermin, signed off, will reconsult if needed. Cleared to start ASA and Plavix. H&H stable 2) Abdominal Distension Assessment & Plan: Resolved. continue to monitor. Peg tube clean, in place. 07/23: Feeds are 6 hours off and 2 hours off. Acknowledgment of note per JANET Garcia. These current feeding recommendations were set because patient was having significant residuals with a more sustained feeding schedule hourly. Tube feeds increased to at 60cc/hr (6 hours on with 2 hours of bowel rest), no residual. Pt to begin 100cc of free water via PEG in between feeds 07/18: Continue feedings. Continue with Miralax 17g PEG qHS 3) Anoxic encephalopathy Assessment & Plan: Unchanged. Continue to monitor weekly labs No acute changes: continue with q2h turning, therapy, feeds through PEG site and suctioning trach routinely Pending placement (4) Respiratory failure Assessment & Plan: Continue trach care and suctioning as needed. Trach culture grew gram negative rods -ID, Dr. Walden s/p trach Monitor (5) CAD (coronary artery disease) Assessment & Plan: Continue current management. s/p cardiac stents on 06/13/15 Continue ASA 81mg via PEG daily Carvedilol 3.125mg PO BID Continue Plavix 75mg via PEG daily (6) Seizures Assessment & Plan: Stable at this time. Position every 2 hours to prevent decubitus ulcer. Continue to monitor Continue Keppra 500mg PEG BID for seizure prophylaxis Phenytoin d/c due to continued inc in LFT's (7) Bed sore Assessment & Plan: Resolved, Continue current management Continue to turn patient q2hrs Monitor with skin checks (8) Prophylactic measure Assessment & Plan: Pepcid 20 mg PEG BID SCD[facility] Boots in place -Jonna, PGY 1 <Nathaniel Beth - Last Filed: 07/30/16 08:16> Objective - Vital Signs/Intake and Output Vital Signs (last 24 hours): Temp Pulse Resp BP Pulse Ox 98 F 84 20 118/75 99 07/30/16 07:00 07/30/16 07:00 07/30/16 07:00 07/30/16 07:00 07/30/16 07:00 - Medications Medications: Current Medications Aspirin (Aspirin Chewable) 81 mg PEG DAILY [facility] Last Admin: 07/29/16 10:51 Dose: 81 mg Carvedilol (Coreg) 3.125 mg PO BID [facility] Last Admin: 07/29/16 17:02 Dose: 3.125 mg Clopidogrel Bisulfate (Plavix) 75 mg PEG DAILY [facility] Last Admin: 07/29/16 10:51 Dose: 75 mg Famotidine (Pepcid) 20 mg PEG BID [facility] Last Admin: 07/29/16 17:02 Dose: 20 mg Lactulose (Enulose) 20 gm PEG HS [facility] Last Admin: 07/14/16 21:40 Dose: 20 gm Levetiracetam (Keppra) 500 mg PEG BID [facility] Last Admin: 07/29/16 17:03 Dose: 500 mg Mupirocin (Bactroban Ointment) 0 gm TOP DAILY [facility] Last Admin: 07/29/16 10:52 Dose: 1 applic Polyethylene Glycol (Miralax) 17 gm PO QPM [facility] Last Admin: 07/22/16 17:46 Dose: 17 gm - Labs Labs: 07/29/16 08:35 07/29/16 08:35 PT 10.6 SECONDS (9.7-12.2) 11/24/15 14:10 INR 1.0 11/24/15 14:10 APTT 25 SECONDS (21-34) 11/24/15 14:10 Attending/Attestation - Attestation I have personally seen and examined this patient.: Yes I have fully participated in the care of the patient.: Yes I have reviewed all pertinent clinical information, including history, physical exam and plan: Yes Notes (Text): Patient seen and examined; I agree with the resident's assessment/plan as above with the following edits/additions: Patient admitted following cardiac arrest, underwent PCI/stent placement; with subsequent anoxic encephalopathy; prolonged hospital course (>1 year) due to placement issues; Active issues: Hypernatremia - Mild, ~1 L free water deficit; started 100 cc water flushes via PEG tube during periods of bowel rest; -increase tube feeds to 60 cc/hr (keeping same schedule of 6h feeds alternating with 2h bowel rest) -increase free water flushes to 200 cc during periods of bowel rest Transaminitis - Improved but still persists with mild elevation; unclear etiology; previous ultrasound before transaminitis was consistent with fatty liver; -continue to monitor, will repeat lipid panel CAD - s/p stent; on ASA/Plavix; low dose coreg for decreased systolic function; -continue same
[2016-07-29 08:42] LABS: HEMOGLOBIN 12.4 g/dL (12.0-18.0); MEAN CELL VOLUME 90.4 fL (80.0-94.0); MEAN CORPUSCULAR HEMOGLOBIN 30.1 pg (27.0-31.0); MEAN CORPUSCULAR HGB CONC 33.3 g/dL (33.0-37.0); MEAN PLATELET VOLUME 9.2 fL (7.2-11.7); RBC 4.13 Mil/uL (4.40-5.90); RED CELL DISTRIBUTION WIDTH 14.6 % (11.5-14.5); WHITE BLOOD COUNT 7.4 K/uL (4.8-10.8)
[2016-07-29 09:03] LABS: BLOOD UREA NITROGEN 15 mg/dL (9-20); GFR NON-AFRICAN AMERICAN > 60
[2016-07-29 09:04] LABS: CALCIUM 8.9 mg/dl (8.6-10.4)
[2016-07-29] MEDS: levETIRAcetam 100 mg/ml (5ml) Oral Syringe PEG SCH ×2 (10:51→17:03)
--- NOTE | 2016-07-30 09:29 | CP.PCM.PN ---
Subjective - Date & Time of Evaluation Date of Evaluation: 07/30/16 Time of Evaluation: 07:55 - Subjective Subjective: PGY [address] Beth's service Pt seen and examined in no acute distress. Patient remains at baseline. Patient was bladder scanned indicative of urinary retention. No abdominal distension noted by nursing team. No fever, no chills noted. Contact isolation for MDRO in urine culture. Patient is minimally responsive to tactile stimuli and nonresponsive to verbal stimuli secondary to anoxic brain injury. Patient turned every 2 hours per nursing team to prevent bed sores. Objective - Vital Signs/Intake and Output Vital Signs (last 24 hours): Temp Pulse Resp BP Pulse Ox 98 F 84 20 118/75 99 07/30/16 07:00 07/30/16 07:00 07/30/16 07:00 07/30/16 07:00 07/30/16 07:00 Intake and Output: 07/30/16 07/30/16 06:59 18:59 Intake Total 360 Output Total 0 Balance 360 - Medications Medications: Current Medications Aspirin (Aspirin Chewable) 81 mg PEG DAILY [facility] Last Admin: 07/29/16 10:51 Dose: 81 mg Carvedilol (Coreg) 3.125 mg PO BID [facility] Last Admin: 07/29/16 17:02 Dose: 3.125 mg Clopidogrel Bisulfate (Plavix) 75 mg PEG DAILY [facility] Last Admin: 07/29/16 10:51 Dose: 75 mg Famotidine (Pepcid) 20 mg PEG BID [facility] Last Admin: 07/29/16 17:02 Dose: 20 mg Lactulose (Enulose) 20 gm PEG HS [facility] Last Admin: 07/14/16 21:40 Dose: 20 gm Levetiracetam (Keppra) 500 mg PEG BID [facility] Last Admin: 07/29/16 17:03 Dose: 500 mg Mupirocin (Bactroban Ointment) 0 gm TOP DAILY [facility] Last Admin: 07/29/16 10:52 Dose: 1 applic Polyethylene Glycol (Miralax) 17 gm PO QPM [facility] Last Admin: 07/22/16 17:46 Dose: 17 gm - Labs Labs: 07/29/16 08:35 07/29/16 08:35 PT 10.6 SECONDS (9.7-12.2) 11/24/15 14:10 INR 1.0 11/24/15 14:10 APTT 25 SECONDS (21-34) 11/24/15 14:10 - Constitutional Appears: No Acute Distress - Head Exam Head Exam: NORMAL INSPECTION - Eye Exam Eye Exam: PERRL - ENT Exam ENT Exam: Mucous Membranes Moist - Neck Exam Neck Exam: absent: Lymphadenopathy Additional comments: Trach in place with dressing intact- there are no secretions at this time - Respiratory Exam Respiratory Exam: NORMAL BREATHING PATTERN. absent: Wheezes - Cardiovascular Exam Cardiovascular Exam: +S1, +S2. absent: Tachycardia - GI/Abdominal Exam GI & Abdominal Exam: Soft, Normal Bowel Sounds. absent: Tenderness - Extremities Exam Extremities Exam: Normal Capillary Refill. absent: Joint Swelling Additional comments: boots in place on feet b/l to prevent ulceration - Back Exam Back Exam: absent: Full ROM - Neurological Exam Neurological Exam: Altered - Psychiatric Exam Psychiatric exam: Flat Affect - Skin Skin Exam: Normal Color, Warm Additional comments: Warm UE and LE B/L Assessment and Plan - Assessment and Plan (Free Text) Assessment: 1) Hypernatremia Assessment & Plan: Mild hypernatremia Tube feeds increased to at 60cc/hr (6 hours on with 2 hours of bowel rest), no residual. Pt water flushes increased to 200cc of free water via PEG in between feeds Continue to monitor 2) Urinary Retention Bladder scan- 249 mls retention overnight Bladder scan- 290 mls retention during the day- Pt was straight catheterized Flomax started 0.4mg PO daily 3) Abdominal Distension Assessment & Plan: Resolved. continue to monitor. Peg tube clean, in place. 07/23: Feeds are 6 hours off and 2 hours off. Acknowledgment of note per JANET Garcia. These current feeding recommendations were set because patient was having significant residuals with a more sustained feeding schedule hourly. Tube feeds increased to at 60cc/hr (6 hours on with 2 hours of bowel rest), no residual. Pt to begin 100cc of free water via PEG in between feeds 07/18: Continue feedings. Continue with Miralax 17g PEG qHS 4) Anoxic encephalopathy Assessment & Plan: Unchanged. Continue to monitor weekly labs No acute changes: continue with q2h turning, therapy, feeds through PEG site and suctioning trach routinely Pending placement 5) Respiratory failure Assessment & Plan: Continue trach care and suctioning as needed. Trach culture grew gram negative rods -ID, Dr. Walden s/p trach Monitor 6) CAD (coronary artery disease) Assessment & Plan: Continue current management. s/p cardiac stents on 06/13/15 Continue ASA 81mg via PEG daily Carvedilol 3.125mg PO BID Continue Plavix 75mg via PEG daily 7) Seizures Assessment & Plan: Stable at this time. Position every 2 hours to prevent decubitus ulcer. Continue to monitor Continue Keppra 500mg PEG BID for seizure prophylaxis Phenytoin d/c due to continued inc in LFT's 8) Bed sore Assessment & Plan: Resolved, Continue current management Continue to turn patient q2hrs Monitor with skin checks 9) Prophylactic measure Assessment & Plan: Pepcid 20 mg PEG BID SCDs Boots in place -Jonna, PGY 1
[2016-07-30] MEDS: levETIRAcetam 100 mg/ml (5ml) Oral Syringe PEG SCH ×2 (10:27→18:00)
--- NOTE | 2016-07-31 07:57 | CP.PCM.PN ---
Subjective - Date & Time of Evaluation Date of Evaluation: 07/31/16 Time of Evaluation: 07:35 - Subjective Subjective: PGY [address] Beth's service Pt seen and examined in no acute distress. Patient baseline remains the same. No fever, no chills noted. Contact isolation for MDRO in urine culture. Patient is minimally responsive to tactile stimuli and nonresponsive to verbal stimuli secondary to anoxic brain injury. Patient turned every 2 hours per nursing team to prevent bed sores. Objective - Vital Signs/Intake and Output Vital Signs (last 24 hours): Temp Pulse Resp BP Pulse Ox 97.8 F 77 20 120/78 99 07/30/16 23:44 07/30/16 23:44 07/30/16 23:44 07/30/16 23:44 07/30/16 23:44 Intake and Output: 07/31/16 07/31/16 06:59 18:59 Intake Total 1000 Output Total 550 Balance 450 - Medications Medications: Current Medications Aspirin (Aspirin Chewable) 81 mg PEG DAILY [facility] Last Admin: 07/30/16 10:27 Dose: 81 mg Carvedilol (Coreg) 3.125 mg PO BID [facility] Last Admin: 07/30/16 18:00 Dose: 3.125 mg Clopidogrel Bisulfate (Plavix) 75 mg PEG DAILY [facility] Last Admin: 07/30/16 10:27 Dose: 75 mg Famotidine (Pepcid) 20 mg PEG BID [facility] Last Admin: 07/30/16 18:00 Dose: 20 mg Lactulose (Enulose) 20 gm PEG HS [facility] Last Admin: 07/14/16 21:40 Dose: 20 gm Levetiracetam (Keppra) 500 mg PEG BID [facility] Last Admin: 07/30/16 18:00 Dose: 500 mg Mupirocin (Bactroban Ointment) 0 gm TOP DAILY [facility] Last Admin: 07/30/16 10:29 Dose: 1 applic Polyethylene Glycol (Miralax) 17 gm PO QPM [facility] Last Admin: 07/22/16 17:46 Dose: 17 gm Tamsulosin HCl (Flomax) 0.4 mg PO DAILY [facility] Last Admin: 07/30/16 16:00 Dose: 0.4 mg - Labs Labs: 07/29/16 08:35 07/29/16 08:35 PT 10.6 SECONDS (9.7-12.2) 01/02/16 14:10 INR 1.0 11/24/15 14:10 APTT 25 SECONDS (21-34) 11/24/15 14:10 - Constitutional Appears: No Acute Distress - Head Exam Head Exam: NORMAL INSPECTION - Eye Exam Eye Exam: PERRL - ENT Exam ENT Exam: Mucous Membranes Moist Additional comments: Trach in place with dressing intact- there are minimal secretions at this time - Neck Exam Neck Exam: absent: Lymphadenopathy - Respiratory Exam Respiratory Exam: NORMAL BREATHING PATTERN. absent: Wheezes - Cardiovascular Exam Cardiovascular Exam: REGULAR RHYTHM, +S1, +S2. absent: Tachycardia - GI/Abdominal Exam GI & Abdominal Exam: Soft, Normal Bowel Sounds - Extremities Exam Extremities Exam: Normal Capillary Refill Additional comments: boots in place on feet b/l to prevent ulceration - Back Exam Back Exam: Full ROM - Neurological Exam Neurological Exam: Altered - Psychiatric Exam Psychiatric exam: Flat Affect - Skin Skin Exam: Normal Color, Warm Additional comments: Warm UE and legs B/L; cool feet b/l Assessment and Plan - Assessment and Plan (Free Text) Assessment: 1) Hypernatremia Assessment & Plan: Mild hypernatremia trending downwards Tube feeds increased to at 60cc/hr (6 hours on with 2 hours of bowel rest), no residual. Pt water flushes increased to 200cc of free water via PEG in between feeds Continue to monitor 2) Urinary Retention Flomax started 0.4mg PO daily Finasteride 5 mg PO daily Continue to monitor 3) Abdominal Distension Assessment & Plan: Resolved. continue to monitor. Peg tube clean, in place. 07/23: Feeds are 6 hours off and 2 hours off. Acknowledgment of note per JANET Garcia. These current feeding recommendations were set because patient was having significant residuals with a more sustained feeding schedule hourly. Tube feeds increased to at 60cc/hr (6 hours on with 2 hours of bowel rest), no residual. Pt to begin 100cc of free water via PEG in between feeds 07/18: Continue feedings. Continue with Miralax 17g PEG qHS 4) Anoxic encephalopathy Assessment & Plan: Unchanged. Continue to monitor weekly labs No acute changes: continue with q2h turning, therapy, feeds through PEG site and suctioning trach routinely Pending placement 5) Respiratory failure Assessment & Plan: Continue trach care and suctioning as needed. Trach culture grew gram negative rods -ID, Dr. Walden s/p trach Monitor 6) CAD (coronary artery disease) Assessment & Plan: Continue current management. s/p cardiac stents on 06/13/15 Continue ASA 81mg via PEG daily Carvedilol 3.125mg PO BID Continue Plavix 75mg via PEG daily 7) Seizures Assessment & Plan: Stable at this time. Position every 2 hours to prevent decubitus ulcer. Continue to monitor Continue Keppra 500mg PEG BID for seizure prophylaxis Phenytoin d/c due to continued inc in LFT's 8) Bed sore Assessment & Plan: Resolved, Continue current management Continue to turn patient q2hrs Monitor with skin checks 9) Prophylactic measure Assessment & Plan: Pepcid 20 mg PEG BID SCDs Boots in place -Jonna, PGY 1
[2016-07-31 08:46] LABS: BASO % 0.3 % (0.0-2.0); EOS # 0.3 K/uL (0.0-0.7); EOS % 2.5 % (0.0-4.0); HEMOGLOBIN 12.4 g/dL (12.0-18.0); LYMPH # 1.8 K/uL (1.0-4.3); LYMPH % 14.4 % (20.0-40.0); MEAN CELL VOLUME 90.1 fL (80.0-94.0); MEAN CORPUSCULAR HGB CONC 33.3 g/dL (33.0-37.0); MEAN PLATELET VOLUME 9.5 fL (7.2-11.7); MONO # 0.9 K/uL (0.0-0.8); MONO % 6.9 % (0.0-10.0); NEUT # 9.7 K/uL (1.8-7.0); NEUT % 75.9 % (50.0-75.0); RBC 4.13 Mil/uL (4.40-5.90); RED CELL DISTRIBUTION WIDTH 14.8 % (11.5-14.5); WHITE BLOOD COUNT 12.7 K/uL (4.8-10.8)
[2016-07-31 08:51] LABS: ALBUMIN 3.7 g/dL (3.5-5.0)
[2016-07-31 08:54] LABS: ALB/GLOB RATIO 0.8 (1.0-2.1); ALT/SGPT 57 U/L (21-72); AST/SGOT 31 U/L (17-59); BLOOD UREA NITROGEN 18 mg/dL (9-20); GFR NON-AFRICAN AMERICAN > 60
[2016-07-31 08:55] LABS: CALCIUM 8.7 mg/dl (8.6-10.4)
[2016-07-31] MEDS: levETIRAcetam 100 mg/ml (5ml) Oral Syringe PEG SCH ×2 (09:12→18:00)
[2016-07-31 21:34] LABS: SQUAMOUS EPITHIAL 1 /hpf (0-5); URINE BACTERIA FEW (<OCC); URINE BILIRUBIN NEGATIVE (NEGATIVE); URINE BLOOD NEGATIVE (NEGATIVE); URINE CLARITY Turbid (Clear); URINE COLOR Amber (YELLOW); URINE GLUCOSE (UA) NORMAL (Normal); URINE LEUKOCYTE ESTERASE 3+ Leu/uL (Negative); URINE PROTEIN 2+ mg/dL (NEGATIVE); URINE UROBILINOGEN NORMAL mg/dL (0.2-1.0)
[2016-08-01] MEDS: levETIRAcetam 100 mg/ml (5ml) Oral Syringe PEG SCH ×2 (09:34→17:05)
--- NOTE | 2016-08-01 14:47 | CP.PCM.PN ---
<Alex Coyle - Last Filed: 08/01/16 20:18> Subjective - Date & Time of Evaluation Date of Evaluation: 08/01/16 Time of Evaluation: 07:50 - Subjective Subjective: PGY [address] Beth's service Pt seen and examined in no acute distress. Patient remains unchanged. No fever or chills noted. Contact isolation for MDRO in urine culture. Patient is minimally responsive to tactile stimuli and nonresponsive to verbal stimuli secondary to anoxic brain injury. Patient turned Q2H per nursing team to prevent bed sores. Objective - Vital Signs/Intake and Output Vital Signs (last 24 hours): Temp Pulse Resp BP Pulse Ox 98.3 F 75 20 106/64 99 07/31/16 23:46 08/01/16 07:49 07/31/16 23:46 07/31/16 23:46 07/31/16 23:46 Intake and Output: 08/01/16 08/01/16 06:59 18:59 Intake Total 1000 580 Output Total 700 800 Balance 300 -220 - Medications Medications: Current Medications Aspirin (Aspirin Chewable) 81 mg PEG DAILY [facility] Last Admin: 08/01/16 09:34 Dose: 81 mg Carvedilol (Coreg) 3.125 mg PO BID [facility] Last Admin: 08/01/16 09:34 Dose: 3.125 mg Clopidogrel Bisulfate (Plavix) 75 mg PEG DAILY [facility] Last Admin: 08/01/16 09:34 Dose: 75 mg Famotidine (Pepcid) 20 mg PEG BID [facility] Last Admin: 08/01/16 09:34 Dose: 20 mg Finasteride (Proscar) 5 mg PO DAILY [facility] Last Admin: 08/01/16 09:34 Dose: 5 mg Levetiracetam (Keppra) 500 mg PEG BID [facility] Last Admin: 08/01/16 09:34 Dose: 500 mg Mupirocin (Bactroban Ointment) 0 gm TOP DAILY [facility] Last Admin: 07/31/16 09:12 Dose: 1 applic Polyethylene Glycol (Miralax) 17 gm PO QPM [facility] Last Admin: 07/22/16 17:46 Dose: 17 gm Tamsulosin HCl (Flomax) 0.4 mg PO DAILY [facility] Last Admin: 08/01/16 09:34 Dose: 0.4 mg - Labs Labs: 07/31/16 08:31 07/31/16 08:31 PT 10.6 SECONDS (9.7-12.2) 11/24/15 14:10 INR 1.0 11/24/15 14:10 APTT 25 SECONDS (21-34) 11/24/15 14:10 - Constitutional Appears: No Acute Distress - Head Exam Head Exam: NORMAL INSPECTION - Eye Exam Eye Exam: PERRL - ENT Exam ENT Exam: Mucous Membranes Moist Additional comments: Trach in place with dressing intact- there are minimal secretions at this time - Neck Exam Neck Exam: absent: Lymphadenopathy - Respiratory Exam Respiratory Exam: NORMAL BREATHING PATTERN. absent: Wheezes - Cardiovascular Exam Cardiovascular Exam: REGULAR RHYTHM, +S1, +S2 - GI/Abdominal Exam GI & Abdominal Exam: Soft, Normal Bowel Sounds. absent: Guarding, Rigid, Tenderness - Rectal Exam Rectal Exam: Deferred - Extremities Exam Additional comments: boots in place on feet b/l to prevent ulceration - Back Exam Back Exam: Full ROM - Neurological Exam Neurological Exam: Altered - Psychiatric Exam Psychiatric exam: Flat Affect - Skin Skin Exam: Normal Color, Warm Additional comments: Warm UE and legs B/L; cool feet b/l Assessment and Plan - Assessment and Plan (Free Text) Assessment: 1) Hypernatremia Assessment & Plan: Mild hypernatremia trending downwards Tube feeds increased to 60cc/hr (6 hours on with 2 hours of bowel rest), no residual. Pt water flushes increased to 200cc of free water via PEG in between feeds Continue to monitor 2) Urinary Retention Flomax started 0.4mg PO daily Finasteride 5 mg PO daily UA positive for UTI- F/U UC, Urine protein and urine creatinine Continue to monitor 3) Abdominal Distension Assessment & Plan: Resolved. continue to monitor. Peg tube clean, in place. 07/23: Feeds are 6 hours off and 2 hours off. Acknowledgment of note per JANET Garcia. These current feeding recommendations were set because patient was having significant residuals with a more sustained feeding schedule hourly. Tube feeds increased to at 60cc/hr (6 hours on with 2 hours of bowel rest), no residual. Pt to begin 100cc of free water via PEG in between feeds 07/18: Continue feedings. Continue with Miralax 17g PEG qHS 4) Anoxic encephalopathy Assessment & Plan: Unchanged. Continue to monitor weekly labs No acute changes: continue with q2h turning, therapy, feeds through PEG site and suctioning trach routinely Pending placement 5) Respiratory failure Assessment & Plan: Continue trach care and suctioning as needed. Trach culture grew gram negative rods -ID, Dr. Walden s/p trach Monitor 6) CAD (coronary artery disease) Assessment & Plan: Continue current management. s/p cardiac stents on 06/13/15 Continue ASA 81mg via PEG daily Carvedilol 3.125mg PO BID Continue Plavix 75mg via PEG daily 7) Seizures Assessment & Plan: Stable at this time. Position every 2 hours to prevent decubitus ulcer. Continue to monitor Continue Keppra 500mg PEG BID for seizure prophylaxis Phenytoin d/c due to continued inc in LFT's 8) Bed sore Assessment & Plan: Resolved, Continue current management Continue to turn patient q2hrs Monitor with skin checks 9) Prophylactic measure Assessment & Plan: Pepcid 20 mg PEG BID SCDs Boots in place <Nathaniel Beth - Last Filed: 08/02/16 09:32> Objective - Vital Signs/Intake and Output Vital Signs (last 24 hours): Temp Pulse Resp BP Pulse Ox 98.2 F 86 20 114/74 99 08/01/16 23:51 08/01/16 23:51 08/01/16 23:51 08/01/16 23:51 08/01/16 23:51 Intake and Output: 08/02/16 08/02/16 06:59 18:59 Intake Total 1120 Output Total 800 Balance 320 - Medications Medications: Current Medications Aspirin (Aspirin Chewable) 81 mg PEG DAILY [facility] Last Admin: 08/01/16 09:34 Dose: 81 mg Carvedilol (Coreg) 3.125 mg PO BID [facility] Last Admin: 08/01/16 17:05 Dose: 3.125 mg Clopidogrel Bisulfate (Plavix) 75 mg PEG DAILY [facility] Last Admin: 08/01/16 09:34 Dose: 75 mg Famotidine (Pepcid) 20 mg PEG BID [facility] Last Admin: 08/01/16 17:05 Dose: 20 mg Finasteride (Proscar) 5 mg PO DAILY [facility] Last Admin: 08/01/16 09:34 Dose: 5 mg Levetiracetam (Keppra) 500 mg PEG BID [facility] Last Admin: 08/01/16 17:05 Dose: 500 mg Mupirocin (Bactroban Ointment) 0 gm TOP DAILY [facility] Last Admin: 07/31/16 09:12 Dose: 1 applic Polyethylene Glycol (Miralax) 17 gm PO QPM [facility] Last Admin: 07/22/16 17:46 Dose: 17 gm Tamsulosin HCl (Flomax) 0.4 mg PO DAILY [facility] Last Admin: 08/01/16 09:34 Dose: 0.4 mg - Labs Labs: 07/31/16 08:31 07/31/16 08:31 PT 10.6 SECONDS (9.7-12.2) 11/24/15 14:10 INR 1.0 11/24/15 14:10 APTT 25 SECONDS (21-34) 11/24/15 14:10 Attending/Attestation - Attestation I have personally seen and examined this patient.: Yes I have fully participated in the care of the patient.: Yes I have reviewed all pertinent clinical information, including history, physical exam and plan: Yes Notes (Text): Patient seen and examined; I agree with the resident's assessment/plan as above with the following additions/edits: Patient admitted s/p cardiac arrest, subsequent anoxic encephalopathy; s/p trach /PEG; prolonged hospital course (>1 year) due to placement issues; Patient found to have urinary retention yesterday; baker placed; started on flomax and finasteride; UA indicative of UTI; no way to assess for symptoms in our patient; mild leukocytosis present; Also with proteinuria on UA; can be seen with UTI; Transaminase elevation improved; will monitor -continue flomax and finasteride; will give voiding trial in 1 week -check urine culture -check random urine protein/creat -continue ASA/plavix, coreg for CAD, decreased EF -continue keppra for seizure prophylaxis
[2016-08-01 14:55] LABS: CREATININE, RANDOM URINE 162.2 mg/dL
--- NOTE | 2016-08-02 00:03 | CP.PCM.PN ---
Subjective - Date & Time of Evaluation Date of Evaluation: 08/02/16 Time of Evaluation: 00:15 - Subjective Subjective: Pt seen and examined. Pt unresponsive to verbal stimuli due to anoxic brain injury. Pt on contact isolation for MDRO in urine culture. Patient turned Q2H per nursing team to prevent bed sores. Objective - Vital Signs/Intake and Output Vital Signs (last 24 hours): Temp Pulse Resp BP Pulse Ox 98.2 F 86 20 114/74 99 08/01/16 23:51 08/01/16 23:51 08/01/16 23:51 08/01/16 23:51 08/01/16 23:51 Intake and Output: 08/01/16 08/02/16 18:59 06:59 Intake Total 580 560 Output Total 800 200 Balance -220 360 - Medications Medications: Current Medications Aspirin (Aspirin Chewable) 81 mg PEG DAILY [facility] Last Admin: 08/01/16 09:34 Dose: 81 mg Carvedilol (Coreg) 3.125 mg PO BID [facility] Last Admin: 08/01/16 17:05 Dose: 3.125 mg Clopidogrel Bisulfate (Plavix) 75 mg PEG DAILY [facility] Last Admin: 08/01/16 09:34 Dose: 75 mg Famotidine (Pepcid) 20 mg PEG BID [facility] Last Admin: 08/01/16 17:05 Dose: 20 mg Finasteride (Proscar) 5 mg PO DAILY [facility] Last Admin: 08/01/16 09:34 Dose: 5 mg Levetiracetam (Keppra) 500 mg PEG BID [facility] Last Admin: 08/01/16 17:05 Dose: 500 mg Mupirocin (Bactroban Ointment) 0 gm TOP DAILY [facility] Last Admin: 07/31/16 09:12 Dose: 1 applic Polyethylene Glycol (Miralax) 17 gm PO QPM [facility] Last Admin: 07/22/16 17:46 Dose: 17 gm Tamsulosin HCl (Flomax) 0.4 mg PO DAILY [facility] Last Admin: 08/01/16 09:34 Dose: 0.4 mg - Labs Labs: 07/31/16 08:31 07/31/16 08:31 PT 10.6 SECONDS (9.7-12.2) 11/24/15 14:10 INR 1.0 11/24/15 14:10 APTT 25 SECONDS (21-34) 11/24/15 14:10 - Constitutional Appears: Non-toxic, No Acute Distress, Chronically Ill - Head Exam Head Exam: ATRAUMATIC, NORMOCEPHALIC - Eye Exam Eye Exam: absent: PERRL Pupil Exam: Fixed - ENT Exam ENT Exam: Mucous Membranes Moist. absent: Mucous Membranes Dry - Neck Exam Neck Exam: absent: Lymphadenopathy, Thyromegaly - Respiratory Exam Respiratory Exam: Rhonchi - Cardiovascular Exam Cardiovascular Exam: +S1, +S2 Additional comments: Soft heart sounds - GI/Abdominal Exam GI & Abdominal Exam: Soft, Normal Bowel Sounds. absent: Distended - Extremities Exam Extremities Exam: absent: Pedal Edema - Neurological Exam Neurological Exam: absent: Alert, Awake, Normal Gait, Oriented x3 - Psychiatric Exam Psychiatric exam: absent: Normal Affect - Skin Skin Exam: Normal Color, Warm Assessment and Plan - Assessment and Plan (Free Text) Assessment: Assessment & Plan: 1) Hypernatremia Resolved: continue to monitor Mild hypernatremia trending downwards Tube feeds increased to 60cc/hr (6 hours on with 2 hours of bowel rest), no residual. Pt water flushes increased to 200cc of free water via PEG in between feeds 2) Urinary Retention Flomax 0.4mg PO daily Finasteride 5 mg PO daily UA positive for UTI- F/U UC, Urine protein and urine creatinine Continue to monitor 3) Abdominal Distension Assessment & Plan: Resolved. continue to monitor. Peg tube clean, in place. 07/23: Feeds are 6 hours off and 2 hours off. Acknowledgment of note per JANET Garcia. These current feeding recommendations were set because patient was having significant residuals with a more sustained feeding schedule hourly. Tube feeds increased to at 60cc/hr (6 hours on with 2 hours of bowel rest), no residual. Pt to begin 100cc of free water via PEG in between feeds 07/18: Continue feedings. Continue with Miralax 17g PEG qHS 4) Anoxic encephalopathy Assessment & Plan: Unchanged. Continue to monitor weekly labs No acute changes: continue with q2h turning, therapy, feeds through PEG site and suctioning trach routinely Pending placement 5) Respiratory failure Assessment & Plan: Continue trach care and suctioning as needed. Trach culture grew gram negative rods -ID, Dr. Walden s/p trach Monitor 6) CAD (coronary artery disease) Assessment & Plan: Continue current management. s/p cardiac stents on 06/13/15 Continue ASA 81mg via PEG daily Carvedilol 3.125mg PO BID Continue Plavix 75mg via PEG daily 7) Seizures Assessment & Plan: Stable at this time. Position every 2 hours to prevent decubitus ulcer. Continue to monitor Continue Keppra 500mg PEG BID for seizure prophylaxis Phenytoin d/c due to continued inc in LFT's 8) Bed sore Assessment & Plan: Resolved, Continue current management Continue to turn patient q2hrs Monitor with skin checks 9) Prophylactic measure Assessment & Plan: Pepcid 20 mg PEG BID SCDs Boots in place
[2016-08-02 07:29] LABS: CREATININE, RANDOM URINE 20.3 mg/dL
[2016-08-02] MEDS: levETIRAcetam 100 mg/ml (5ml) Oral Syringe PEG SCH ×2 (10:04→17:39)
--- NOTE | 2016-08-03 04:49 | CP.PCM.PN ---
Subjective - Date & Time of Evaluation Date of Evaluation: 08/03/16 Time of Evaluation: 00:00 - Subjective Subjective: Pt seen and examined. Pt unresponsive due to anoxic brain injury. Pt on contact isolation for MDRO in urine culture. Pt remains unchanged. Objective - Vital Signs/Intake and Output Vital Signs (last 24 hours): Temp Pulse Resp BP Pulse Ox 98 F 71 20 116/76 99 08/03/16 00:12 08/03/16 00:12 08/03/16 00:12 08/03/16 00:12 08/03/16 00:12 Intake and Output: 08/02/16 08/03/16 18:59 06:59 Intake Total 510 680 Output Total 200 300 Balance 310 380 - Medications Medications: Current Medications Aspirin (Aspirin Chewable) 81 mg PEG DAILY [facility] Last Admin: 08/02/16 10:05 Dose: 81 mg Carvedilol (Coreg) 3.125 mg PO BID [facility] Last Admin: 08/02/16 17:39 Dose: 3.125 mg Clopidogrel Bisulfate (Plavix) 75 mg PEG DAILY [facility] Last Admin: 08/02/16 10:04 Dose: 75 mg Famotidine (Pepcid) 20 mg PEG BID [facility] Last Admin: 08/02/16 17:39 Dose: 20 mg Finasteride (Proscar) 5 mg PO DAILY [facility] Last Admin: 08/02/16 10:04 Dose: 5 mg Levetiracetam (Keppra) 500 mg PEG BID [facility] Last Admin: 08/02/16 17:39 Dose: 500 mg Mupirocin (Bactroban Ointment) 0 gm TOP DAILY [facility] Last Admin: 08/02/16 10:14 Dose: 1 applic Polyethylene Glycol (Miralax) 17 gm PO QPM [facility] Last Admin: 07/22/16 17:46 Dose: 17 gm Tamsulosin HCl (Flomax) 0.4 mg PO DAILY [facility] Last Admin: 08/02/16 10:04 Dose: 0.4 mg - Labs Labs: 07/31/16 08:31 07/31/16 08:31 PT 10.6 SECONDS (9.7-12.2) 11/24/15 14:10 INR 1.0 11/24/15 14:10 APTT 25 SECONDS (21-34) 11/24/15 14:10 - Constitutional Appears: Toxic, No Acute Distress, Chronically Ill - Head Exam Head Exam: ATRAUMATIC, NORMOCEPHALIC - Eye Exam Eye Exam: EOMI, PERRL Pupil Exam: Fixed - ENT Exam ENT Exam: Mucous Membranes Moist - Neck Exam Neck Exam: Full ROM. absent: Tenderness - Respiratory Exam Respiratory Exam: Rhonchi - Cardiovascular Exam Cardiovascular Exam: +S1, +S2. absent: Gallop, Rubs, Murmur - GI/Abdominal Exam GI & Abdominal Exam: Soft - Extremities Exam Extremities Exam: absent: Pedal Edema - Skin Skin Exam: Normal Color, Warm Assessment and Plan - Assessment and Plan (Free Text) Assessment: Assessment & Plan: 1) Hypernatremia Resolved: continue to monitor Mild hypernatremia trending downwards Tube feeds increased to 60cc/hr (6 hours on with 2 hours of bowel rest), no residual. Pt water flushes increased to 200cc of free water via PEG in between feeds 2) Urinary Retention Flomax 0.4mg PO daily Finasteride 5 mg PO daily UA positive for UTI- F/U UC, Urine protein and urine creatinine Continue to monitor 3) Abdominal Distension Assessment & Plan: Resolved. continue to monitor. Peg tube clean, in place. 07/23: Feeds are 6 hours off and 2 hours off. Acknowledgment of note per JANET Garcia. These current feeding recommendations were set because patient was having significant residuals with a more sustained feeding schedule hourly. Tube feeds increased to at 60cc/hr (6 hours on with 2 hours of bowel rest), no residual. Pt to begin 100cc of free water via PEG in between feeds 07/18: Continue feedings. Continue with Miralax 17g PEG qHS 4) Anoxic encephalopathy Assessment & Plan: Unchanged. Continue to monitor weekly labs No acute changes: continue with q2h turning, therapy, feeds through PEG site and suctioning trach routinely Pending placement 5) Respiratory failure Assessment & Plan: Continue trach care and suctioning as needed. Trach culture grew gram negative rods -ID, Dr. Walden s/p trach Monitor 6) CAD (coronary artery disease) Assessment & Plan: Continue current management. s/p cardiac stents on 06/13/15 Continue ASA 81mg via PEG daily Carvedilol 3.125mg PO BID Continue Plavix 75mg via PEG daily 7) Seizures Assessment & Plan: Stable at this time. Position every 2 hours to prevent decubitus ulcer. Continue to monitor Continue Keppra 500mg PEG BID for seizure prophylaxis Phenytoin d/c due to continued inc in LFT's 8) Bed sore Assessment & Plan: Resolved, Continue current management Continue to turn patient q2hrs Monitor with skin checks 9) Prophylactic measure Assessment & Plan: Pepcid 20 mg PEG BID SCDs Boots in place
[2016-08-03 08:56] LABS: BASO % 0.4 % (0.0-2.0); EOS # 0.4 K/uL (0.0-0.7); HEMOGLOBIN 12.1 g/dL (12.0-18.0); LYMPH # 1.7 K/uL (1.0-4.3); MEAN CELL VOLUME 89.6 fL (80.0-94.0); MEAN CORPUSCULAR HEMOGLOBIN 29.8 pg (27.0-31.0); MEAN CORPUSCULAR HGB CONC 33.2 g/dL (33.0-37.0); MEAN PLATELET VOLUME 9.4 fL (7.2-11.7); MONO # 0.8 K/uL (0.0-0.8); MONO % 8.2 % (0.0-10.0); NEUT # 7.1 K/uL (1.8-7.0); NEUT % 70.4 % (50.0-75.0); RBC 4.07 Mil/uL (4.40-5.90); RED CELL DISTRIBUTION WIDTH 14.5 % (11.5-14.5); WHITE BLOOD COUNT 10.1 K/uL (4.8-10.8)
[2016-08-03 09:36] LABS: ALBUMIN 3.6 g/dL (3.5-5.0)
[2016-08-03 09:38] LABS: GFR NON-AFRICAN AMERICAN > 60
[2016-08-03 09:39] LABS: ALB/GLOB RATIO 0.8 (1.0-2.1); ALT/SGPT 51 U/L (21-72); AST/SGOT 24 U/L (17-59); BLOOD UREA NITROGEN 15 mg/dL (9-20); CALCIUM 8.6 mg/dl (8.6-10.4)
[2016-08-03] MEDS: levETIRAcetam 100 mg/ml (5ml) Oral Syringe PEG SCH ×2 (10:13→17:05)
[2016-08-04] MEDS: levETIRAcetam 100 mg/ml (5ml) Oral Syringe PEG SCH ×2 (09:57→17:25)
[2016-08-04 20:38] LABS: URINE AMORPHOUS SEDIMENT OCC /ul (<OCC); URINE BACTERIA MOD (<OCC); URINE TRIPLE PHOSPHATE CRYSTAL MANY /hpf (<OCC)
[2016-08-04 20:43] LABS: PH,URINE 8.5 (5.0-8.0); URINE BILIRUBIN NEGATIVE (NEGATIVE); URINE BLOOD TRACE-INTACT (NEGATIVE); URINE CLARITY CLOUDY (Clear); URINE COLOR YELLOW (YELLOW); URINE GLUCOSE (UA) NEGATIVE (Normal); URINE LEUKOCYTE ESTERASE LARGE Leu/uL (Negative); URINE PROTEIN 100 mg/dL (NEGATIVE)
--- NOTE | 2016-08-05 01:23 | CP.PCM.PN ---
Addendum entered and electronically signed by Bolivar Miller DO 08/05/16 01: 31: PLEASE BE AWARE THAT THIS NOTE IS BASED ON ENCOUNTER WITH PATIENT ON 08/04/16 Original Note: <Bolivar Miller - Last Filed: 08/05/16 01:27> Subjective - Date & Time of Evaluation Date of Evaluation: 08/04/16 Time of Evaluation: 10:45 - Subjective Subjective: Pt seen and examined. Pt noncommunicating and unresponsive to verbal stimuli due to anoxic brain injury. Pt remains unchanged. Pt on contact isolation for MDRO in urine culture. Patient turned Q2H per nursing team to prevent bed sores Objective - Vital Signs/Intake and Output Vital Signs (last 24 hours): Temp Pulse Resp BP Pulse Ox 97.8 F 76 20 119/76 99 08/04/16 23:51 08/04/16 23:51 08/04/16 23:51 08/04/16 23:51 08/04/16 23:51 Intake and Output: 08/04/16 08/05/16 18:59 06:59 Intake Total 240 480 Output Total 500 200 Balance -260 280 - Medications Medications: Current Medications Aspirin (Aspirin Chewable) 81 mg PEG DAILY [facility] Last Admin: 08/04/16 09:57 Dose: 81 mg Clopidogrel Bisulfate (Plavix) 75 mg PEG DAILY [facility] Last Admin: 08/04/16 09:57 Dose: 75 mg Famotidine (Pepcid) 20 mg PEG BID [facility] Last Admin: 08/04/16 17:25 Dose: 20 mg Finasteride (Proscar) 5 mg PO DAILY [facility] Last Admin: 08/04/16 09:57 Dose: 5 mg Levetiracetam (Keppra) 500 mg PEG BID [facility] Last Admin: 08/04/16 17:25 Dose: 500 mg Mupirocin (Bactroban Ointment) 0 gm TOP DAILY [facility] Last Admin: 08/04/16 10:04 Dose: 1 applic Polyethylene Glycol (Miralax) 17 gm PO QPM [facility] Last Admin: 07/22/16 17:46 Dose: 17 gm Tamsulosin HCl (Flomax) 0.4 mg PO DAILY [facility] Last Admin: 08/04/16 09:56 Dose: 0.4 mg - Labs Labs: 08/03/16 08:35 08/03/16 08:35 PT 10.6 SECONDS (9.7-12.2) 11/24/15 14:10 INR 1.0 11/24/15 14:10 APTT 25 SECONDS (21-34) 11/24/15 14:10 - Constitutional Appears: Toxic, No Acute Distress, Chronically Ill - Head Exam Head Exam: ATRAUMATIC, NORMOCEPHALIC Additional comments: Appears gaunt - Eye Exam Eye Exam: EOMI, PERRL Pupil Exam: PERRL - ENT Exam ENT Exam: Mucous Membranes Moist - Neck Exam Neck Exam: absent: Full ROM - Respiratory Exam Respiratory Exam: Decreased Breath Sounds - Cardiovascular Exam Cardiovascular Exam: +S1, +S2. absent: Gallop, Rubs - GI/Abdominal Exam GI & Abdominal Exam: Soft, Hypoactive Bowel Sounds. absent: Distended, Organomegaly - Extremities Exam Extremities Exam: Full ROM - Neurological Exam Neurological Exam: absent: Alert, Awake, Oriented x3 - Skin Skin Exam: Normal Color, Warm Assessment and Plan - Assessment and Plan (Free Text) Assessment: Assessment & Plan: 1) Hypernatremia Resolved: continue to monitor Mild hypernatremia trending downwards Tube feeds increased to 60cc/hr (6 hours on with 2 hours of bowel rest), no residual. Pt water flushes increased to 200cc of free water via PEG in between feeds 2) Urinary Retention Flomax 0.4mg PO daily Finasteride 5 mg PO daily UA positive for UTI- F/U UC, Urine protein and urine creatinine Continue to monitor 3) Abdominal Distension Assessment & Plan: Resolved. continue to monitor. Peg tube clean, in place. 07/23: Feeds are 6 hours off and 2 hours off. Acknowledgment of note per JANET Garcia. These current feeding recommendations were set because patient was having significant residuals with a more sustained feeding schedule hourly. Tube feeds increased to at 60cc/hr (6 hours on with 2 hours of bowel rest), no residual. Pt to begin 100cc of free water via PEG in between feeds 07/18: Continue feedings. Continue with Miralax 17g PEG qHS 4) Anoxic encephalopathy Assessment & Plan: Unchanged. Continue to monitor weekly labs No acute changes: continue with q2h turning, therapy, feeds through PEG site and suctioning trach routinely Pending placement 5) Respiratory failure Assessment & Plan: Continue trach care and suctioning as needed. Trach culture grew gram negative rods -ID, Dr. Walden s/p trach Monitor 6) CAD (coronary artery disease) Assessment & Plan: Continue current management. s/p cardiac stents on 06/13/15 Continue ASA 81mg via PEG daily Carvedilol 3.125mg PO BID Continue Plavix 75mg via PEG daily 7) Seizures Assessment & Plan: Stable at this time. Position every 2 hours to prevent decubitus ulcer. Continue to monitor Continue Keppra 500mg PEG BID for seizure prophylaxis Phenytoin d/c due to continued inc in LFT's 8) Bed sore Assessment & Plan: Resolved, Continue current management Continue to turn patient q2hrs Monitor with skin checks 9) Prophylactic measure Assessment & Plan: Pepcid 20 mg PEG BID SCDs Boots in place <Donnell Ying - Last Filed: 08/05/16 09:26> Objective - Vital Signs/Intake and Output Vital Signs (last 24 hours): Temp Pulse Resp BP Pulse Ox 98.0 F 80 20 118/77 100 08/05/16 08:31 08/05/16 08:31 08/05/16 08:31 08/05/16 08:31 08/05/16 08:31 Intake and Output: 08/05/16 08/05/16 06:59 18:59 Intake Total 940 Output Total 500 Balance 440 - Medications Medications: Current Medications Aspirin (Aspirin Chewable) 81 mg PEG DAILY [facility] Last Admin: 08/05/16 09:22 Dose: 81 mg Clopidogrel Bisulfate (Plavix) 75 mg PEG DAILY [facility] Last Admin: 08/05/16 09:22 Dose: 75 mg Famotidine (Pepcid) 20 mg PEG BID [facility] Last Admin: 08/05/16 09:22 Dose: 20 mg Finasteride (Proscar) 5 mg PO DAILY [facility] Last Admin: 08/05/16 09:22 Dose: 5 mg Levetiracetam (Keppra) 500 mg PEG BID [facility] Last Admin: 08/05/16 09:22 Dose: 500 mg Mupirocin (Bactroban Ointment) 0 gm TOP DAILY [facility] Last Admin: 08/05/16 09:25 Dose: 1 applic Polyethylene Glycol (Miralax) 17 gm PO QPM [facility] Last Admin: 07/22/16 17:46 Dose: 17 gm Tamsulosin HCl (Flomax) 0.4 mg PO DAILY [facility] Last Admin: 08/05/16 09:22 Dose: 0.4 mg - Labs Labs: 08/03/16 08:35 08/03/16 08:35 PT 10.6 SECONDS (9.7-12.2) 11/24/15 14:10 INR 1.0 11/24/15 14:10 APTT 25 SECONDS (21-34) 11/24/15 14:10 Attending/Attestation - Attestation I have personally seen and examined this patient.: Yes I have fully participated in the care of the patient.: Yes I have reviewed all pertinent clinical information, including history, physical exam and plan: Yes Notes (Text): 08/05/16 09:25 Patient was seen and examined at bedside No change in clinical condition Follow his catheter is in place We will request ID evaluation for the UTI.
[2016-08-05] MEDS: levETIRAcetam 100 mg/ml (5ml) Oral Syringe PEG SCH ×2 (09:22→18:12)
--- NOTE | 2016-08-05 23:15 | CP.PCM.PN ---
<Bolivar Miller - Last Filed: 08/05/16 23:12> Subjective - Date & Time of Evaluation Date of Evaluation: 08/05/16 Time of Evaluation: 08:30 - Subjective Subjective: Pt seen and examined. Pt unresponsive to verbal stimuli due to anoxix salazar injury. Pt looks more gaunt. Pt on contact isolation due to MDRO in urine. Pt on trach collar. ROS unattainable. Objective - Vital Signs/Intake and Output Vital Signs (last 24 hours): Temp Pulse Resp BP Pulse Ox 98.7 F 90 20 122/77 96 08/05/16 16:00 08/05/16 16:00 08/05/16 16:00 08/05/16 16:00 08/05/16 16:00 Intake and Output: 08/05/16 08/06/16 18:59 06:59 Output Total 0 Balance 0 - Medications Medications: Current Medications Aspirin (Aspirin Chewable) 81 mg PEG DAILY [facility] Last Admin: 08/05/16 09:22 Dose: 81 mg Carvedilol (Coreg) 3.125 mg PO BID [facility] Last Admin: 08/05/16 18:13 Dose: 3.125 mg Clopidogrel Bisulfate (Plavix) 75 mg PEG DAILY [facility] Last Admin: 08/05/16 09:22 Dose: 75 mg Famotidine (Pepcid) 20 mg PEG BID [facility] Last Admin: 08/05/16 18:13 Dose: 20 mg Finasteride (Proscar) 5 mg PO DAILY [facility] Last Admin: 08/05/16 09:22 Dose: 5 mg Levetiracetam (Keppra) 500 mg PEG BID [facility] Last Admin: 08/05/16 18:12 Dose: 500 mg Mupirocin (Bactroban Ointment) 0 gm TOP DAILY [facility] Last Admin: 08/05/16 09:25 Dose: 1 applic Polyethylene Glycol (Miralax) 17 gm PO QPM [facility] Last Admin: 07/22/16 17:46 Dose: 17 gm Tamsulosin HCl (Flomax) 0.4 mg PO DAILY [facility] Last Admin: 08/05/16 09:22 Dose: 0.4 mg - Labs Labs: 08/03/16 08:35 08/03/16 08:35 PT 10.6 SECONDS (9.7-12.2) 01/02/16 14:10 INR 1.0 11/24/15 14:10 APTT 25 SECONDS (21-34) 11/24/15 14:10 - Constitutional Appears: Toxic, No Acute Distress, Cachectic - Head Exam Head Exam: ATRAUMATIC, NORMOCEPHALIC - Eye Exam Eye Exam: EOMI, PERRL - ENT Exam ENT Exam: Mucous Membranes Moist - Neck Exam Neck Exam: Full ROM. absent: Lymphadenopathy - Respiratory Exam Respiratory Exam: Decreased Breath Sounds. absent: Rales, Rhonchi - Cardiovascular Exam Cardiovascular Exam: +S1, +S2. absent: Gallop, Murmur - GI/Abdominal Exam GI & Abdominal Exam: Soft, Tenderness, Hypoactive Bowel Sounds. absent: Mass - Extremities Exam Extremities Exam: absent: Pedal Edema - Neurological Exam Neurological Exam: absent: Alert, Awake, Oriented x3 - Psychiatric Exam Psychiatric exam: absent: Normal Affect - Skin Skin Exam: Normal Color, Warm Assessment and Plan - Assessment and Plan (Free Text) Assessment: 1) Hypernatremia Resolved: continue to monitor Tube feeds increased to 60cc/hr (6 hours on with 2 hours of bowel rest), no residual. Pt water flushes increased to 200cc of free water via PEG in between feeds 2) Urinary Retention Flomax 0.4mg PO daily Finasteride 5 mg PO daily UA positive for UTI- [place] Culture positive for proteus Urine protein and urine creatinine Continue to monitor 3) Abdominal Distension Assessment & Plan: Resolved. continue to monitor. Peg tube clean, in place. 08/05: f/u with dietitian regarding increasing rate of feeding 07/23: Feeds are 6 hours off and 2 hours off. Acknowledgment of note per JANET Garcia. These current feeding recommendations were set because patient was having significant residuals with a more sustained feeding schedule hourly. Tube feeds increased to at 60cc/hr (6 hours on with 2 hours of bowel rest), no residual. Pt to begin 100cc of free water via PEG in between feeds 07/18: Continue feedings. Continue with Miralax 17g PEG qHS 4) Anoxic encephalopathy Assessment & Plan: Unchanged. Continue to monitor weekly labs No acute changes: continue with q2h turning, therapy, feeds through PEG site and suctioning trach routinely Pending placement 5) Respiratory failure Assessment & Plan: Continue trach care and suctioning as needed. Trach culture grew gram negative rods -ID, Dr. Walden s/p trach Monitor 6) CAD (coronary artery disease) Assessment & Plan: Continue current management. s/p cardiac stents on 06/13/15 Continue ASA 81mg via PEG daily Carvedilol 3.125mg PO BID Continue Plavix 75mg via PEG daily 7) Seizures Assessment & Plan: Stable at this time. Position every 2 hours to prevent decubitus ulcer. Continue to monitor Continue Keppra 500mg PEG BID for seizure prophylaxis Phenytoin d/c due to continued inc in LFT's 8) Bed sore Assessment & Plan: Resolved, Continue current management Continue to turn patient q2hrs Monitor with skin checks 9) Prophylactic measure Assessment & Plan: Pepcid 20 mg PEG BID SCDs Boots in place <Donnell Ying M - Last Filed: 08/06/16 09:03> Objective - Vital Signs/Intake and Output Vital Signs (last 24 hours): Temp Pulse Resp BP Pulse Ox 98.6 F 101 H 20 102/67 98 08/06/16 07:32 08/06/16 07:32 08/06/16 07:32 08/06/16 07:32 08/06/16 07:32 Intake and Output: 08/06/16 08/06/16 06:59 18:59 Intake Total 360 460 Output Total 600 350 Balance -240 110 - Medications Medications: Current Medications Aspirin (Aspirin Chewable) 81 mg PEG DAILY [facility] Last Admin: 08/05/16 09:22 Dose: 81 mg Carvedilol (Coreg) 3.125 mg PO BID [facility] Last Admin: 08/05/16 18:13 Dose: 3.125 mg Clopidogrel Bisulfate (Plavix) 75 mg PEG DAILY [facility] Last Admin: 08/05/16 09:22 Dose: 75 mg Famotidine (Pepcid) 20 mg PEG BID [facility] Last Admin: 08/05/16 18:13 Dose: 20 mg Finasteride (Proscar) 5 mg PO DAILY [facility] Last Admin: 08/05/16 09:22 Dose: 5 mg Levetiracetam (Keppra) 500 mg PEG BID [facility] Last Admin: 08/05/16 18:12 Dose: 500 mg Mupirocin (Bactroban Ointment) 0 gm TOP DAILY [facility] Last Admin: 08/05/16 09:25 Dose: 1 applic Polyethylene Glycol (Miralax) 17 gm PO QPM [facility] Last Admin: 07/22/16 17:46 Dose: 17 gm Tamsulosin HCl (Flomax) 0.4 mg PO DAILY [facility] Last Admin: 08/05/16 09:22 Dose: 0.4 mg - Labs Labs: 08/03/16 08:35 08/03/16 08:35 PT 10.6 SECONDS (9.7-12.2) 11/24/15 14:10 INR 1.0 11/24/15 14:10 APTT 25 SECONDS (21-34) 11/24/15 14:10 Attending/Attestation - Attestation I have personally seen and examined this patient.: Yes I have fully participated in the care of the patient.: Yes I have reviewed all pertinent clinical information, including history, physical exam and plan: Yes Notes (Text): 08/06/16 09:02 Patient seen and examined at bedside with the resident This a late computer entry Monitor weight. May need to change to continuous bleeding.
[2016-08-06] MEDS: levETIRAcetam 100 mg/ml (5ml) Oral Syringe PEG SCH ×2 (09:49→17:34)
--- NOTE | 2016-08-06 16:18 | CP.PCM.PN ---
<Bolivar Miller - Last Filed: 08/06/16 16:15> Subjective - Date & Time of Evaluation Date of Evaluation: 08/06/16 Time of Evaluation: 10:30 - Subjective Subjective: Pt seen and examined. Pt unresponsive to verbal stimuli due to anoxic brain injury. Pt saturating at 100% O2 on trach collar. ROS unattainable. Objective - Vital Signs/Intake and Output Vital Signs (last 24 hours): Temp Pulse Resp BP Pulse Ox 98.6 F 101 H 20 102/67 98 08/06/16 07:32 08/06/16 07:32 08/06/16 07:32 08/06/16 07:32 08/06/16 07:32 Intake and Output: 08/06/16 08/06/16 06:59 18:59 Intake Total 360 1020 Output Total 600 750 Balance -240 270 - Medications Medications: Current Medications Aspirin (Aspirin Chewable) 81 mg PEG DAILY [facility] Last Admin: 08/06/16 09:49 Dose: 81 mg Carvedilol (Coreg) 3.125 mg PO BID [facility] Last Admin: 08/06/16 09:49 Dose: 3.125 mg Clopidogrel Bisulfate (Plavix) 75 mg PEG DAILY [facility] Last Admin: 08/06/16 09:49 Dose: 75 mg Famotidine (Pepcid) 20 mg PEG BID [facility] Last Admin: 08/06/16 09:49 Dose: 20 mg Finasteride (Proscar) 5 mg PO DAILY [facility] Last Admin: 08/06/16 09:49 Dose: 5 mg Imipenem/Cilastatin Sodium 500 (mg/ Sodium Chloride) 100 mls @ 100 mls/hr IVPB Q6H [facility] Levetiracetam (Keppra) 500 mg PEG BID [facility] Last Admin: 08/06/16 09:49 Dose: 500 mg Mupirocin (Bactroban Ointment) 0 gm TOP DAILY [facility] Last Admin: 08/06/16 09:50 Dose: 1 applic Polyethylene Glycol (Miralax) 17 gm PO QPM [facility] Last Admin: 07/22/16 17:46 Dose: 17 gm Tamsulosin HCl (Flomax) 0.4 mg PO DAILY [facility] Last Admin: 08/06/16 09:49 Dose: 0.4 mg - Labs Labs: 08/03/16 08:35 08/03/16 08:35 PT 10.6 SECONDS (9.7-12.2) 11/24/15 14:10 INR 1.0 11/24/15 14:10 APTT 25 SECONDS (21-34) 11/24/15 14:10 - Constitutional Appears: Toxic, No Acute Distress, Chronically Ill - Head Exam Head Exam: ATRAUMATIC, NORMOCEPHALIC - Eye Exam Eye Exam: absent: EOMI, PERRL - ENT Exam ENT Exam: Mucous Membranes Moist - Neck Exam Neck Exam: absent: Full ROM - Respiratory Exam Respiratory Exam: Decreased Breath Sounds. absent: Clear to Ausculation Bilateral - Cardiovascular Exam Cardiovascular Exam: +S1, +S2. absent: Gallop, Rubs, Murmur - GI/Abdominal Exam GI & Abdominal Exam: Soft, Hypoactive Bowel Sounds. absent: Rigid, Mass - Extremities Exam Extremities Exam: absent: Pedal Edema - Neurological Exam Neurological Exam: absent: Alert, Awake, Normal Gait, Oriented x3 - Skin Skin Exam: Normal Color, Warm Assessment and Plan - Assessment and Plan (Free Text) Assessment: 1) Urinary Retention 08/06: -As per ID, Dr. Armstrong, pt started on primaxin 500 mg IV Q6H (based on proteus sensitivity) -labs ordered, f/u cmp, cbc Flomax 0.4mg PO daily Finasteride 5 mg PO daily UA positive for UTI- Urine Culture positive for proteus Urine protein and urine creatinine Continue to monitor 2) Abdominal Distension Assessment & Plan: Resolved. continue to monitor. Peg tube clean, in place. 08/05: f/u with dietitian regarding increasing rate of feeding 07/23: Feeds are 6 hours off and 2 hours off. Acknowledgment of note per JANET Garcia. These current feeding recommendations were set because patient was having significant residuals with a more sustained feeding schedule hourly. Tube feeds increased to at 60cc/hr (6 hours on with 2 hours of bowel rest), no residual. Pt to begin 100cc of free water via PEG in between feeds 07/18: Continue feedings. Continue with Miralax 17g PEG qHS 3) Hypernatremia Resolved: continue to monitor Tube feeds increased to 60cc/hr (6 hours on with 2 hours of bowel rest), no residual. Pt water flushes increased to 200cc of free water via PEG in between feeds 4) Anoxic encephalopathy Assessment & Plan: Unchanged. Continue to monitor weekly labs No acute changes: continue with q2h turning, therapy, feeds through PEG site and suctioning trach routinely Pending placement 5) Respiratory failure Assessment & Plan: Continue trach care and suctioning as needed. Trach culture grew gram negative rods -ID, Dr. Walden s/p trach Monitor 6) CAD (coronary artery disease) Assessment & Plan: Continue current management. s/p cardiac stents on 06/13/15 Continue ASA 81mg via PEG daily Carvedilol 3.125mg PO BID Continue Plavix 75mg via PEG daily 7) Seizures Assessment & Plan: Stable at this time. Position every 2 hours to prevent decubitus ulcer. Continue to monitor Continue Keppra 500mg PEG BID for seizure prophylaxis Phenytoin d/c due to continued inc in LFT's 8) Bed sore Assessment & Plan: Resolved, Continue current management Continue to turn patient q2hrs Monitor with skin checks 9) Prophylactic measure Assessment & Plan: Pepcid 20 mg PEG BID SCDs Boots in place <Donnell Ying M - Last Filed: 08/06/16 18:41> Objective - Vital Signs/Intake and Output Vital Signs (last 24 hours): Temp Pulse Resp BP Pulse Ox 98.7 F 85 20 91/59 L 100 08/06/16 16:00 08/06/16 16:00 08/06/16 16:00 08/06/16 16:00 08/06/16 16:00 Intake and Output: 08/06/16 08/06/16 06:59 18:59 Intake Total 360 1020 Output Total 600 750 Balance -240 270 - Medications Medications: Current Medications Aspirin (Aspirin Chewable) 81 mg PEG DAILY [facility] Last Admin: 08/06/16 09:49 Dose: 81 mg Carvedilol (Coreg) 3.125 mg PO BID [facility] Last Admin: 08/06/16 17:34 Dose: 3.125 mg Clopidogrel Bisulfate (Plavix) 75 mg PEG DAILY [facility] Last Admin: 08/06/16 09:49 Dose: 75 mg Famotidine (Pepcid) 20 mg PEG BID [facility] Last Admin: 08/06/16 17:34 Dose: 20 mg Finasteride (Proscar) 5 mg PO DAILY [facility] Last Admin: 08/06/16 09:49 Dose: 5 mg Imipenem/Cilastatin Sodium 500 (mg/ Sodium Chloride) 100 mls @ 100 mls/hr IVPB Q6H [facility] Last Admin: 08/06/16 16:34 Dose: 100 mls/hr Levetiracetam (Keppra) 500 mg PEG BID [facility] Last Admin: 08/06/16 17:34 Dose: 500 mg Mupirocin (Bactroban Ointment) 0 gm TOP DAILY [facility] Last Admin: 08/06/16 09:50 Dose: 1 applic Polyethylene Glycol (Miralax) 17 gm PO QPM [facility] Last Admin: 07/22/16 17:46 Dose: 17 gm Tamsulosin HCl (Flomax) 0.4 mg PO DAILY [facility] Last Admin: 08/06/16 09:49 Dose: 0.4 mg - Labs Labs: 08/03/16 08:35 08/03/16 08:35 PT 10.6 SECONDS (9.7-12.2) 11/24/15 14:10 INR 1.0 11/24/15 14:10 APTT 25 SECONDS (21-34) 11/24/15 14:10 Attending/Attestation - Attestation I have personally seen and examined this patient.: Yes I have fully participated in the care of the patient.: Yes I have reviewed all pertinent clinical information, including history, physical exam and plan: Yes Notes (Text): 08/06/16 18:40 Patient was seen and examined at bedside with the resident Repeat urine cultures noted. Discussed with ID. Patient started on Primaxin for 7 days We will remove the Yoo's catheter after treatment for UTI. Continue management Turn and position every 2 hours to prevent decubitus ulcers
[2016-08-07 08:24] LABS: BASO % 0.5 % (0.0-2.0); EOS # 0.4 K/uL (0.0-0.7); HEMOGLOBIN 11.5 g/dL (12.0-18.0); LYMPH # 1.6 K/uL (1.0-4.3); LYMPH % 18.9 % (20.0-40.0); MEAN CELL VOLUME 90.1 fL (80.0-94.0); MEAN CORPUSCULAR HEMOGLOBIN 29.7 pg (27.0-31.0); MEAN CORPUSCULAR HGB CONC 32.9 g/dL (33.0-37.0); MEAN PLATELET VOLUME 9.4 fL (7.2-11.7); MONO # 0.9 K/uL (0.0-0.8); MONO % 10.7 % (0.0-10.0); NEUT # 5.6 K/uL (1.8-7.0); NEUT % 64.9 % (50.0-75.0); RBC 3.86 Mil/uL (4.40-5.90); RED CELL DISTRIBUTION WIDTH 14.9 % (11.5-14.5); WHITE BLOOD COUNT 8.7 K/uL (4.8-10.8)
[2016-08-07 08:42] LABS: ALBUMIN 3.5 g/dL (3.5-5.0)
[2016-08-07 08:45] LABS: GFR NON-AFRICAN AMERICAN > 60
[2016-08-07 08:46] LABS: ALB/GLOB RATIO 0.8 (1.0-2.1); ALT/SGPT 44 U/L (21-72); AST/SGOT 34 U/L (17-59); BLOOD UREA NITROGEN 25 mg/dL (9-20); CALCIUM 8.6 mg/dl (8.6-10.4)
[2016-08-07] MEDS: levETIRAcetam 100 mg/ml (5ml) Oral Syringe PEG SCH ×2 (09:35→17:12)
--- NOTE | 2016-08-07 09:46 | CP.PCM.PN ---
<Nely Pate - Last Filed: 08/07/16 09:43> Subjective - Date & Time of Evaluation Date of Evaluation: 08/07/16 Time of Evaluation: 09:44 - Subjective Subjective: Medicine Progress Note Patient seen and examined. Patient's clinical status remains unchanged. Patient not responsive to verbal or physical stimulation. Yoo catheter in place draining clear yellow urine. PEG tube in place, no drainage or erythema around insertion site. Trach collar in place, no sputum noted. ROS could not be obtained. Objective - Vital Signs/Intake and Output Vital Signs (last 24 hours): Temp Pulse Resp BP Pulse Ox 98.7 F 66 20 105/71 99 08/07/16 07:50 08/07/16 07:50 08/07/16 07:50 08/07/16 07:50 08/07/16 07:50 Intake and Output: 08/07/16 08/07/16 06:59 18:59 Intake Total 1220 Output Total 350 Balance 870 - Medications Medications: Current Medications Aspirin (Aspirin Chewable) 81 mg PEG DAILY [facility] Last Admin: 08/07/16 09:35 Dose: 81 mg Carvedilol (Coreg) 3.125 mg PO BID [facility] Last Admin: 08/07/16 09:35 Dose: 3.125 mg Clopidogrel Bisulfate (Plavix) 75 mg PEG DAILY [facility] Last Admin: 08/07/16 09:36 Dose: 75 mg Famotidine (Pepcid) 20 mg PEG BID [facility] Last Admin: 08/07/16 09:35 Dose: 20 mg Finasteride (Proscar) 5 mg PO DAILY [facility] Last Admin: 08/07/16 09:35 Dose: 5 mg Imipenem/Cilastatin Sodium 500 (mg/ Sodium Chloride) 100 mls @ 100 mls/hr IVPB Q6H [facility] Last Admin: 08/07/16 09:39 Dose: 100 mls/hr Levetiracetam (Keppra) 500 mg PEG BID [facility] Last Admin: 08/07/16 09:35 Dose: 500 mg Mupirocin (Bactroban Ointment) 0 gm TOP DAILY [facility] Last Admin: 08/07/16 09:36 Dose: 1 applic Polyethylene Glycol (Miralax) 17 gm PO QPM [facility] Last Admin: 07/22/16 17:46 Dose: 17 gm Tamsulosin HCl (Flomax) 0.4 mg PO DAILY [facility] Last Admin: 08/07/16 09:35 Dose: 0.4 mg - Labs Labs: 08/07/16 08:14 08/07/16 08:14 PT 10.6 SECONDS (9.7-12.2) 11/24/15 14:10 INR 1.0 11/24/15 14:10 APTT 25 SECONDS (21-34) 11/24/15 14:10 - Constitutional Appears: No Acute Distress, Chronically Ill - Head Exam Head Exam: ATRAUMATIC, NORMOCEPHALIC - Eye Exam Eye Exam: Normal appearance - ENT Exam ENT Exam: Mucous Membranes Dry - Neck Exam Additional comments: Trach collar midline, no sputum noted - Respiratory Exam Respiratory Exam: Clear to Ausculation Bilateral, NORMAL BREATHING PATTERN. absent: Rales, Rhonchi, Wheezes, Respiratory Distress - Cardiovascular Exam Cardiovascular Exam: REGULAR RHYTHM, +S1, +S2. absent: Tachycardia, Irregular Rhythm - GI/Abdominal Exam GI & Abdominal Exam: Soft, Normal Bowel Sounds. absent: Rigid, Tenderness Additional comments: PEG tube in place, no drainage from insertion site, area clean and dry - Extremities Exam Extremities Exam: absent: Pedal Edema Additional comments: muscle wasting of LE, boots in place - Back Exam Additional comments: stage 3 healed sacral ulcer - Neurological Exam Neurological Exam: Alert, Awake, Oriented x3 - Psychiatric Exam Psychiatric exam: absent: Normal Affect, Normal Mood - Skin Skin Exam: Dry, Intact, Warm Assessment and Plan - Assessment and Plan (Free Text) Assessment: (1) Urinary Retention 08/07: Stable. Yoo catheter in place, draining clear yellow urine 1100cc in past 24 hours Continue to monitor I/Os, continue current medical treatment 08/06: As per CASEY, Dr. Armstrong, pt started on primaxin 500 mg IV Q6H (based on proteus sensitivity) Flomax 0.4mg PO daily Finasteride 5 mg PO daily Urine Culture positive for proteus Urine protein and urine creatinine (2) Abdominal Distension 08/07: Resolved. Tube feeds 60cc/hr (6 hours on with 2 hours of bowel rest), no residual. Pt water flushes increased to 200cc of free water via PEG in between feeds 07/23: Feeds are 6 hours off and 2 hours off. Acknowledgment of note per JANET Garcia. These current feeding recommendations were set because patient was having significant residuals with a more sustained feeding schedule hourly. Tube feeds increased to at 60cc/hr (6 hours on with 2 hours of bowel rest), no residual. Pt to begin 100cc of free water via PEG in between feeds 07/18: Continue feedings. Continue with Miralax 17g PEG qHS (3) Failure to thrive 08/07: Continue Tube feeds 60cc/hr (6 hours on with 2 hours of bowel rest), no residual. Pt water flushes increased to 200cc of free water via PEG in between feeds 08/05: weight 63kg Measure weight weekly. (4) Anoxic encephalopathy 08/07: Unchanged. Continue to monitor weekly labs, continue with q2h turning, therapy, feeds through PEG site and suctioning trach routinely Pending placement (5) Respiratory failure 08/07: Continue trach care and suctioning as needed. Continue Primaxin 500mg IV q6h, started on 08/06/16. Trach culture grew gram negative rods on 07/16-ID, Dr. Walden s/p trach Monitor (6) CAD (coronary artery disease) 08/07: Continue current management. s/p cardiac stents on 06/13/15 Continue ASA 81mg via PEG daily Carvedilol 3.125mg PO BID Continue Plavix 75mg via PEG daily (7) Seizures 08/07: Stable at this time. Continue Keppra 500mg PEG BID for seizure prophylaxis Phenytoin d/c due to continued inc in LFT's on 07/21/16. LFTs now stable. (8) Bed sore 08/07: Stage 3 healed sacral ulcer. Continue to turn patient q2hrs Monitor with skin checks (9) Prophylactic measure Pepcid 20 mg PEG BID Heparin 5000u SC q8h SCDs Boots in place <Donnell Ying - Last Filed: 08/07/16 17:00> Objective - Vital Signs/Intake and Output Vital Signs (last 24 hours): Temp Pulse Resp BP Pulse Ox 98.2 F 77 20 119/81 99 08/07/16 16:00 08/07/16 16:00 08/07/16 16:00 08/07/16 16:00 08/07/16 16:00 Intake and Output: 08/07/16 08/07/16 06:59 18:59 Intake Total 1220 660 Output Total 350 300 Balance 870 360 - Medications Medications: Current Medications Aspirin (Aspirin Chewable) 81 mg PEG DAILY [facility] Last Admin: 08/07/16 09:35 Dose: 81 mg Carvedilol (Coreg) 3.125 mg PO BID [facility] Last Admin: 08/07/16 09:35 Dose: 3.125 mg Clopidogrel Bisulfate (Plavix) 75 mg PEG DAILY [facility] Last Admin: 08/07/16 09:36 Dose: 75 mg Famotidine (Pepcid) 20 mg PEG BID [facility] Last Admin: 08/07/16 09:35 Dose: 20 mg Finasteride (Proscar) 5 mg PO DAILY [facility] Last Admin: 08/07/16 09:35 Dose: 5 mg Heparin Sodium (Porcine) (Heparin) 5,000 units SC Q8 [facility] Last Admin: 08/07/16 13:51 Dose: 5,000 units Imipenem/Cilastatin Sodium 500 (mg/ Sodium Chloride) 100 mls @ 100 mls/hr IVPB Q6H [facility] Last Admin: 08/07/16 09:39 Dose: 100 mls/hr Levetiracetam (Keppra) 500 mg PEG BID [facility] Last Admin: 08/07/16 09:35 Dose: 500 mg Mupirocin (Bactroban Ointment) 0 gm TOP DAILY [facility] Last Admin: 08/07/16 09:36 Dose: 1 applic Polyethylene Glycol (Miralax) 17 gm PO QPM [facility] Last Admin: 07/22/16 17:46 Dose: 17 gm Tamsulosin HCl (Flomax) 0.4 mg PO DAILY [facility] Last Admin: 08/07/16 09:35 Dose: 0.4 mg - Labs Labs: 08/07/16 08:14 08/07/16 08:14 PT 10.6 SECONDS (9.7-12.2) 11/24/15 14:10 INR 1.0 11/24/15 14:10 APTT 25 SECONDS (21-34) 11/24/15 14:10 Attending/Attestation - Attestation I have personally seen and examined this patient.: Yes I have fully participated in the care of the patient.: Yes I have reviewed all pertinent clinical information, including history, physical exam and plan: Yes Notes (Text): 08/07/16 16:59 Patient seen and examined at bedside No change in clinical condition We will continue antibiotics for UTI Remove the Yoo's after antibiotic course is completed Turn and position every 2 hours to prevent sacral decubitus Discussed with dietitian. We will increase the feeding to 50 mL/h as continuous feed
--- NOTE | 2016-08-08 07:16 | CP.PCM.PN ---
<Nely Pate - Last Filed: 08/08/16 09:41> Subjective - Date & Time of Evaluation Date of Evaluation: 08/08/16 Time of Evaluation: 09:41 - Subjective Subjective: Medicine Progress Note Patient seen and examined. Patient's clinical status remains unchanged. Yoo catheter in place draining clear yellow urine. PEG tube in place, no drainage or erythema around insertion site. Trach collar in place, no sputum noted. ROS could not be obtained. Objective - Vital Signs/Intake and Output Vital Signs (last 24 hours): Temp Pulse Resp BP Pulse Ox 98.3 F 85 20 113/76 98 08/07/16 23:59 08/07/16 23:59 08/07/16 23:59 08/07/16 23:59 08/07/16 23:59 Intake and Output: 08/08/16 08/08/16 06:59 18:59 Intake Total 660 Balance 660 - Medications Medications: Current Medications Aspirin (Aspirin Chewable) 81 mg PEG DAILY [facility] Last Admin: 08/07/16 09:35 Dose: 81 mg Carvedilol (Coreg) 3.125 mg PO BID [facility] Last Admin: 08/07/16 17:12 Dose: 3.125 mg Clopidogrel Bisulfate (Plavix) 75 mg PEG DAILY [facility] Last Admin: 08/07/16 09:36 Dose: 75 mg Famotidine (Pepcid) 20 mg PEG BID [facility] Last Admin: 08/07/16 17:12 Dose: 20 mg Finasteride (Proscar) 5 mg PO DAILY [facility] Last Admin: 08/07/16 09:35 Dose: 5 mg Heparin Sodium (Porcine) (Heparin) 5,000 units SC Q8 [facility] Last Admin: 08/08/16 05:20 Dose: 5,000 units Imipenem/Cilastatin Sodium 500 (mg/ Sodium Chloride) 100 mls @ 100 mls/hr IVPB Q6H [facility] Last Admin: 08/08/16 03:49 Dose: 100 mls/hr Levetiracetam (Keppra) 500 mg PEG BID [facility] Last Admin: 08/07/16 17:12 Dose: 500 mg Mupirocin (Bactroban Ointment) 0 gm TOP DAILY [facility] Last Admin: 08/07/16 09:36 Dose: 1 applic Polyethylene Glycol (Miralax) 17 gm PO QPM [facility] Last Admin: 07/22/16 17:46 Dose: 17 gm Tamsulosin HCl (Flomax) 0.4 mg PO DAILY [facility] Last Admin: 08/07/16 09:35 Dose: 0.4 mg - Labs Labs: 08/07/16 08:14 08/07/16 08:14 PT 10.6 SECONDS (9.7-12.2) 11/24/15 14:10 INR 1.0 11/24/15 14:10 APTT 25 SECONDS (21-34) 11/24/15 14:10 - Additional Findings Additional findings: - Constitutional Appears: No Acute Distress, Chronically Ill - Head Exam Head Exam: ATRAUMATIC, NORMOCEPHALIC - Eye Exam Eye Exam: Normal appearance - ENT Exam ENT Exam: Mucous Membranes Dry - Neck Exam Additional comments: Trach collar midline, no sputum noted - Respiratory Exam Respiratory Exam: Clear to Ausculation Bilateral, NORMAL BREATHING PATTERN. absent: Rales, Rhonchi, Wheezes, Respiratory Distress - Cardiovascular Exam Cardiovascular Exam: REGULAR RHYTHM, +S1, +S2. absent: Tachycardia, Irregular Rhythm - GI/Abdominal Exam GI & Abdominal Exam: Soft, Normal Bowel Sounds. absent: Rigid, Tenderness Additional comments: PEG tube in place, no drainage from insertion site, area clean and dry - Extremities Exam Extremities Exam: absent: Pedal Edema Additional comments: muscle wasting of LE, boots in place - Back Exam Additional comments: stage 3 healed sacral ulcer - Neurological Exam Neurological Exam: Alert, Awake, Oriented x3 - Psychiatric Exam Psychiatric exam: absent: Normal Affect, Normal Mood - Skin Skin Exam: Dry, Intact, Warm Assessment and Plan - Assessment and Plan (Free Text) Assessment: (1) Urinary Retention 08/08: Stable. Yoo catheter in place, draining clear yellow urine 1020cc in past 24 hours Continue to monitor I/Os, continue current medical treatment 08/06: As per ID, Dr. Armstrong, pt started on primaxin 500 mg IV Q6H (based on proteus sensitivity) Flomax 0.4mg PO daily Finasteride 5 mg PO daily Urine Culture positive for proteus Urine protein and urine creatinine (2) Abdominal Distension 08/08: Resolved. Tube feeds 60cc/hr (6 hours on with 2 hours of bowel rest), no residual. Pt water flushes increased to 200cc of free water via PEG in between feeds 8/31: Feeds are 6 hours off and 2 hours off. Acknowledgment of note per JANET Garcia. These current feeding recommendations were set because patient was having significant residuals with a more sustained feeding schedule hourly. Tube feeds increased to at 60cc/hr (6 hours on with 2 hours of bowel rest), no residual. Pt to begin 100cc of free water via PEG in between feeds 07/18: Continue feedings. Continue with Miralax 17g PEG qHS (3) Failure to thrive 08/08: Continue Tube feeds 60cc/hr (6 hours on with 2 hours of bowel rest), no residual. Pt water flushes increased to 200cc of free water via PEG in between feeds 08/05: weight 63kg Measure weight weekly. (4) Anoxic encephalopathy 08/08: Unchanged. Continue to monitor weekly labs, continue with q2h turning, therapy, feeds through PEG site and suctioning trach routinely Pending placement (5) Respiratory failure 08/08: Continue trach care and suctioning as needed. Continue Primaxin 500mg IV q6h, started on 08/06/16. Trach culture grew gram negative rods on 07/16-ID, Dr. Walden s/p trach Monitor (6) CAD (coronary artery disease) 08/08: Continue current management. s/p cardiac stents on 06/13/15 Continue ASA 81mg via PEG daily Carvedilol 3.125mg PO BID Continue Plavix 75mg via PEG daily (7) Seizures 08/08: Stable at this time. Continue Keppra 500mg PEG BID for seizure prophylaxis Phenytoin d/c due to continued inc in LFT's on 07/21/16. LFTs now stable. (8) Bed sore 08/08: Stage 3 healed sacral ulcer. Continue to turn patient q2hrs Monitor with skin checks (9) Prophylactic measure Pepcid 20 mg PEG BID Heparin 5000u SC q8h S[facility]s Boots in place <Donnell Ying - Last Filed: 08/09/16 08:41> Objective - Vital Signs/Intake and Output Vital Signs (last 24 hours): Temp Pulse Resp BP Pulse Ox 98.6 F 76 20 122/79 98 08/09/16 08:17 08/09/16 08:17 08/09/16 08:17 08/09/16 08:17 08/09/16 08:17 Intake and Output: 09/17/16 09/17/16 06:59 18:59 Intake Total 1420 Output Total 1000 Balance 420 - Medications Medications: Current Medications Aspirin (Aspirin Chewable) 81 mg PEG DAILY [facility] Last Admin: 08/08/16 10:19 Dose: 81 mg Carvedilol (Coreg) 3.125 mg PO BID [facility] Last Admin: 08/08/16 17:02 Dose: 3.125 mg Clopidogrel Bisulfate (Plavix) 75 mg PEG DAILY [facility] Last Admin: 08/08/16 10:19 Dose: 75 mg Famotidine (Pepcid) 20 mg PEG BID [facility] Last Admin: 08/08/16 17:02 Dose: 20 mg Finasteride (Proscar) 5 mg PO DAILY [facility] Last Admin: 08/08/16 10:19 Dose: 5 mg Heparin Sodium (Porcine) (Heparin) 5,000 units SC Q8 [facility] Last Admin: 08/09/16 06:14 Dose: 5,000 units Imipenem/Cilastatin Sodium 500 (mg/ Sodium Chloride) 100 mls @ 100 mls/hr IVPB Q6H [facility] Last Admin: 08/09/16 03:15 Dose: 100 mls/hr Levetiracetam (Keppra) 500 mg PEG BID [facility] Last Admin: 08/08/16 17:02 Dose: 500 mg Mupirocin (Bactroban Ointment) 0 gm TOP DAILY [facility] Last Admin: 08/08/16 14:05 Dose: 1 applic Polyethylene Glycol (Miralax) 17 gm PO QPM [facility] Last Admin: 07/22/16 17:46 Dose: 17 gm Tamsulosin HCl (Flomax) 0.4 mg PO DAILY [facility] Last Admin: 08/08/16 10:19 Dose: 0.4 mg - Labs Labs: 08/07/16 08:14 08/07/16 08:14 PT 10.6 SECONDS (9.7-12.2) 11/24/15 14:10 INR 1.0 11/24/15 14:10 APTT 25 SECONDS (21-34) 11/24/15 14:10 Attending/Attestation - Attestation I have personally seen and examined this patient.: Yes I have fully participated in the care of the patient.: Yes I have reviewed all pertinent clinical information, including history, physical exam and plan: Yes Notes (Text): 08/09/16 08:40 Patient was seen and examined at bedside with the resident No change in clinical condition Continue antibiotics for UTI We will change the diet to continues feeding and monitor weight We will turn and position the patient every 2 hours to prevent decubitus ulcers
[2016-08-08] MEDS: levETIRAcetam 100 mg/ml (5ml) Oral Syringe PEG SCH ×2 (10:19→17:02)
--- NOTE | 2016-08-09 02:03 | CP.PCM.PN ---
<Rossi Gonzáles - Last Filed: 08/09/16 01:57> Subjective - Date & Time of Evaluation Date of Evaluation: 08/09/16 Time of Evaluation: 02:03 - Subjective Subjective: Patient seen and examined at bedside. Patient's clinical status remains unchanged. Patient not responsive to verbal or physical stimulation. Yoo, PEG tube and tracheostomy collar in place, no skin irritation or infection appreciated. Unobtainable ROS. Objective - Vital Signs/Intake and Output Vital Signs (last 24 hours): Temp Pulse Resp BP Pulse Ox 98.1 F 72 20 105/60 99 08/08/16 23:48 08/09/16 01:42 08/08/16 23:48 08/08/16 23:48 08/08/16 23:48 Intake and Output: 08/08/16 08/09/16 18:59 06:59 Intake Total 1170 760 Output Total 1300 300 Balance -130 460 - Medications Medications: Current Medications Aspirin (Aspirin Chewable) 81 mg PEG DAILY [facility] Last Admin: 08/08/16 10:19 Dose: 81 mg Carvedilol (Coreg) 3.125 mg PO BID [facility] Last Admin: 08/08/16 17:02 Dose: 3.125 mg Clopidogrel Bisulfate (Plavix) 75 mg PEG DAILY [facility] Last Admin: 08/08/16 10:19 Dose: 75 mg Famotidine (Pepcid) 20 mg PEG BID [facility] Last Admin: 08/08/16 17:02 Dose: 20 mg Finasteride (Proscar) 5 mg PO DAILY [facility] Last Admin: 08/08/16 10:19 Dose: 5 mg Heparin Sodium (Porcine) (Heparin) 5,000 units SC Q8 [facility] Last Admin: 08/08/16 21:45 Dose: 5,000 units Imipenem/Cilastatin Sodium 500 (mg/ Sodium Chloride) 100 mls @ 100 mls/hr IVPB Q6H [facility] Last Admin: 08/08/16 21:44 Dose: 100 mls/hr Levetiracetam (Keppra) 500 mg PEG BID [facility] Last Admin: 08/08/16 17:02 Dose: 500 mg Mupirocin (Bactroban Ointment) 0 gm TOP DAILY [facility] Last Admin: 08/08/16 14:05 Dose: 1 applic Polyethylene Glycol (Miralax) 17 gm PO QPM [facility] Last Admin: 07/22/16 17:46 Dose: 17 gm Tamsulosin HCl (Flomax) 0.4 mg PO DAILY [facility] Last Admin: 08/08/16 10:19 Dose: 0.4 mg - Labs Labs: 08/07/16 08:14 08/07/16 08:14 PT 10.6 SECONDS (9.7-12.2) 11/24/15 14:10 INR 1.0 11/24/15 14:10 APTT 25 SECONDS (21-34) 11/24/15 14:10 - Constitutional Appears: No Acute Distress, Chronically Ill - Head Exam Head Exam: NORMAL INSPECTION - Eye Exam Eye Exam: Normal appearance - ENT Exam ENT Exam: Mucous Membranes Dry - Neck Exam Additional comments: Tracheostomy collar in place - Respiratory Exam Respiratory Exam: Clear to Ausculation Bilateral, NORMAL BREATHING PATTERN - Cardiovascular Exam Cardiovascular Exam: REGULAR RHYTHM, +S1, +S2. absent: Irregular Rhythm - GI/Abdominal Exam GI & Abdominal Exam: Soft, Normal Bowel Sounds. absent: Bruit, Tenderness, Hernia, Mass - Extremities Exam Extremities Exam: Normal Capillary Refill - Psychiatric Exam Psychiatric exam: absent: Normal Affect, Normal Mood - Skin Skin Exam: Dry, Intact, Warm Assessment and Plan - Assessment and Plan (Free Text) Assessment: (1) Urinary Retention 08/09: Stable. Yoo catheter in place, draining clear yellow urine 1600cc in past 24 hours Continue to monitor I/Os, continue current medical treatment 08/06: As per ID, Dr. Armstrong, pt started on primaxin 500 mg IV Q6H (based on proteus sensitivity) Flomax 0.4mg PO daily Finasteride 5 mg PO daily Urine Culture positive for proteus Urine protein and urine creatinine (2) Abdominal Distension 08/09: Resolved. Tube feeds 60cc/hr (6 hours on with 2 hours of bowel rest), no residual. Pt water flushes increased to 200cc of free water via PEG in between feeds 07/23: Feeds are 6 hours off and 2 hours off. Acknowledgment of note per JANET Garcia. These current feeding recommendations were set because patient was having significant residuals with a more sustained feeding schedule hourly. Tube feeds increased to at 60cc/hr (6 hours on with 2 hours of bowel rest), no residual. Pt to begin 100cc of free water via PEG in between feeds 07/18: Continue feedings. Continue with Miralax 17g PEG qHS (3) Failure to thrive 08/09: Continue Tube feeds 60cc/hr (6 hours on with 2 hours of bowel rest), no residual. Pt water flushes increased to 200cc of free water via PEG in between feeds 08/05: weight 63kg Measure weight weekly. (4) Anoxic encephalopathy 08/09: Unchanged. Continue to monitor weekly labs, continue with q2h turning, therapy, feeds through PEG site and suctioning trach routinely Pending placement (5) Respiratory failure 08/09: Continue trach care and suctioning as needed. Continue Primaxin 500mg IV q6h, started on 08/06/16. Trach culture grew gram negative rods on 07/16-ID, Dr. Walden s/p trach Monitor (6) CAD (coronary artery disease) 08/09: Continue current management. s/p cardiac stents on 06/13/15 Continue ASA 81mg via PEG daily Carvedilol 3.125mg PO BID Continue Plavix 75mg via PEG daily (7) Seizures 08/09: Stable at this time. Continue Keppra 500mg PEG BID for seizure prophylaxis Phenytoin d/c due to continued inc in LFT's on 07/21/16. LFTs now stable. (8) Bed sore 08/09: Stage 3 healed sacral ulcer. Continue to turn patient q2hrs Monitor with skin checks (9) Prophylactic measure Pepcid 20 mg PEG BID Heparin 5000u SC q8h SCDs Boots in place <Donnell Ying - Last Filed: 08/09/16 15:28> Objective - Vital Signs/Intake and Output Vital Signs (last 24 hours): Temp Pulse Resp BP Pulse Ox 98.6 F 76 20 122/79 98 08/09/16 08:17 08/09/16 08:17 08/09/16 08:17 08/09/16 08:17 08/09/16 08:17 Intake and Output: 08/09/16 08/09/16 06:59 18:59 Intake Total 1420 660 Output Total 1000 480 Balance 420 180 - Medications Medications: Current Medications Aspirin (Aspirin Chewable) 81 mg PEG DAILY [facility] Last Admin: 08/09/16 10:23 Dose: 81 mg Carvedilol (Coreg) 3.125 mg PO BID [facility] Last Admin: 08/09/16 10:23 Dose: 3.125 mg Clopidogrel Bisulfate (Plavix) 75 mg PEG DAILY [facility] Last Admin: 08/09/16 10:23 Dose: 75 mg Famotidine (Pepcid) 20 mg PEG BID [facility] Last Admin: 08/09/16 10:23 Dose: 20 mg Finasteride (Proscar) 5 mg PO DAILY [facility] Last Admin: 08/09/16 10:23 Dose: 5 mg Heparin Sodium (Porcine) (Heparin) 5,000 units SC Q8 [facility] Last Admin: 08/09/16 13:58 Dose: 5,000 units Imipenem/Cilastatin Sodium 500 (mg/ Sodium Chloride) 100 mls @ 100 mls/hr IVPB Q6H [facility] Last Admin: 08/09/16 10:23 Dose: 100 mls/hr Levetiracetam (Keppra) 500 mg PEG BID [facility] Last Admin: 08/09/16 10:00 Dose: 500 mg Mupirocin (Bactroban Ointment) 0 gm TOP DAILY [facility] Last Admin: 08/09/16 13:58 Dose: 1 applic Polyethylene Glycol (Miralax) 17 gm PO QPM [facility] Last Admin: 07/22/16 17:46 Dose: 17 gm Tamsulosin HCl (Flomax) 0.4 mg PO DAILY [facility] Last Admin: 08/09/16 10:00 Dose: 0.4 mg - Labs Labs: 08/07/16 08:14 08/07/16 08:14 PT 10.6 SECONDS (9.7-12.2) 11/24/15 14:10 INR 1.0 11/24/15 14:10 APTT 25 SECONDS (21-34) 11/24/15 14:10 Attending/Attestation - Attestation I have personally seen and examined this patient.: Yes I have fully participated in the care of the patient.: Yes I have reviewed all pertinent clinical information, including history, physical exam and plan: Yes Notes (Text): 08/09/16 15:28 Patient was seen and examined at bedside There is no change in clinical condition and continue current management Turn and position every 2 hours for prevention of decubitus ulcers
[2016-08-09] MEDS: levETIRAcetam 100 mg/ml (5ml) Oral Syringe PEG SCH ×2 (10:00→18:45)
--- NOTE | 2016-08-10 06:03 | CP.PCM.PN ---
<Rossi Gonzáles - Last Filed: 08/10/16 06:00> Subjective - Date & Time of Evaluation Date of Evaluation: 08/10/16 Time of Evaluation: 06:00 - Subjective Subjective: Patient seen and examined at bedside. Patient's clinical status remains the same. Patient was awake at the time of exam, but not responsive to verbal or physical stimulation. Yoo, PEG tube and tracheostomy collar in place, no skin irritation or infection noted. Unobtainable ROS. Objective - Vital Signs/Intake and Output Vital Signs (last 24 hours): Temp Pulse Resp BP Pulse Ox 97.6 F 84 20 125/77 100 08/10/16 00:00 08/10/16 00:00 08/10/16 00:00 08/10/16 00:00 08/10/16 00:00 Intake and Output: 08/09/16 08/10/16 18:59 06:59 Intake Total 660 660 Output Total 480 450 Balance 180 210 - Medications Medications: Current Medications Aspirin (Aspirin Chewable) 81 mg PEG DAILY [facility] Last Admin: 08/09/16 10:23 Dose: 81 mg Carvedilol (Coreg) 3.125 mg PO BID [facility] Last Admin: 08/09/16 18:45 Dose: 3.125 mg Clopidogrel Bisulfate (Plavix) 75 mg PEG DAILY [facility] Last Admin: 08/09/16 10:23 Dose: 75 mg Famotidine (Pepcid) 20 mg PEG BID [facility] Last Admin: 08/09/16 18:45 Dose: 20 mg Finasteride (Proscar) 5 mg PO DAILY [facility] Last Admin: 08/09/16 10:23 Dose: 5 mg Heparin Sodium (Porcine) (Heparin) 5,000 units SC Q8 [facility] Last Admin: 08/10/16 05:29 Dose: 5,000 units Imipenem/Cilastatin Sodium 500 (mg/ Sodium Chloride) 100 mls @ 100 mls/hr IVPB Q6H [facility] Last Admin: 08/10/16 04:10 Dose: 100 mls/hr Levetiracetam (Keppra) 500 mg PEG BID [facility] Last Admin: 08/09/16 18:45 Dose: 500 mg Mupirocin (Bactroban Ointment) 0 gm TOP DAILY [facility] Last Admin: 08/09/16 13:58 Dose: 1 applic Polyethylene Glycol (Miralax) 17 gm PO QPM [facility] Last Admin: 07/22/16 17:46 Dose: 17 gm Tamsulosin HCl (Flomax) 0.4 mg PO DAILY [facility] Last Admin: 08/09/16 10:00 Dose: 0.4 mg - Labs Labs: 08/07/16 08:14 08/07/16 08:14 PT 10.6 SECONDS (9.7-12.2) 11/24/15 14:10 INR 1.0 11/24/15 14:10 APTT 25 SECONDS (21-34) 11/24/15 14:10 - Constitutional Appears: No Acute Distress, Chronically Ill - Head Exam Head Exam: ATRAUMATIC, NORMAL INSPECTION - Eye Exam Eye Exam: Normal appearance - ENT Exam ENT Exam: Mucous Membranes Moist - Neck Exam Additional comments: Tracheostomy collar in place, no signs of infection or irritation. - Respiratory Exam Respiratory Exam: Clear to Ausculation Bilateral, NORMAL BREATHING PATTERN. absent: Respiratory Distress - Cardiovascular Exam Cardiovascular Exam: REGULAR RHYTHM, +S1, +S2. absent: Murmur - GI/Abdominal Exam GI & Abdominal Exam: Soft, Normal Bowel Sounds. absent: Tenderness, Hernia, Mass Additional comments: PEG tube in place, no signs of infection or irritation - Extremities Exam Extremities Exam: Normal Capillary Refill. absent: Pedal Edema - Neurological Exam Neurological Exam: Awake - Psychiatric Exam Psychiatric exam: absent: Normal Affect, Normal Mood - Skin Skin Exam: Dry, Intact, Normal Color, Warm Assessment and Plan - Assessment and Plan (Free Text) Assessment: (1) Urinary Retention 08/10: Stable. Yoo catheter in place, draining clear yellow urine 930cc in past 24 hours Continue to monitor I/Os, continue current medical treatment. No change in clinical condition. 08/06: As per ID, Dr. Armstrong, pt started on primaxin 500 mg IV Q6H (based on proteus sensitivity) Flomax 0.4mg PO daily Finasteride 5 mg PO daily Urine Culture positive for proteus Urine protein and urine creatinine (2) Abdominal Distension 08/10: Resolved. Tube feeds 60cc/hr (6 hours on with 2 hours of bowel rest), no residual. Pt water flushes increased to 200cc of free water via PEG in between feeds 07/23: Feeds are 6 hours off and 2 hours off. Acknowledgment of note per JANET Garcia. These current feeding recommendations were set because patient was having significant residuals with a more sustained feeding schedule hourly. Tube feeds increased to at 60cc/hr (6 hours on with 2 hours of bowel rest), no residual. Pt to begin 100cc of free water via PEG in between feeds 07/18: Continue feedings. Continue with Miralax 17g PEG qHS (3) Failure to thrive 08/10: Continue Tube feeds 60cc/hr (6 hours on with 2 hours of bowel rest), no residual. Pt water flushes increased to 200cc of free water via PEG in between feeds 08/05: weight 63kg Measure weight weekly. (4) Anoxic encephalopathy 08/10: Unchanged. Continue to monitor weekly labs, continue with q2h turning, therapy, feeds through PEG site and suctioning trach routinely Pending placement (5) Respiratory failure 08/10: Continue trach care and suctioning as needed. Continue Primaxin 500mg IV q6h, started on 08/06/16. Trach culture grew gram negative rods on 07/16-ID, Dr. Walden s/p trach Monitor (6) CAD (coronary artery disease) 08/10: Continue current management. s/p cardiac stents on 06/13/15 Continue ASA 81mg via PEG daily Carvedilol 3.125mg PO BID Continue Plavix 75mg via PEG daily (7) Seizures 08/10: Stable at this time. Continue Keppra 500mg PEG BID for seizure prophylaxis Phenytoin d/c due to continued inc in LFT's on 07/21/16. LFTs now stable. (8) Bed sore 08/10: Stage 3 healed sacral ulcer. Continue to turn patient q2hrs Monitor with skin checks (9) Prophylactic measure Pepcid 20 mg PEG BID Heparin 5000u SC q8h SCDs Boots in place <Donnell Ying - Last Filed: 08/10/16 12:17> Objective - Vital Signs/Intake and Output Vital Signs (last 24 hours): Temp Pulse Resp BP Pulse Ox 98.4 F 66 20 111/71 100 08/10/16 08:00 08/10/16 08:00 08/10/16 08:00 08/10/16 08:00 08/10/16 08:00 Intake and Output: 08/10/16 08/10/16 06:59 18:59 Intake Total 660 460 Output Total 450 700 Balance 210 -240 - Medications Medications: Current Medications Aspirin (Aspirin Chewable) 81 mg PEG DAILY [facility] Last Admin: 08/10/16 10:58 Dose: 81 mg Carvedilol (Coreg) 3.125 mg PO BID [facility] Last Admin: 08/10/16 10:59 Dose: Not Given Clopidogrel Bisulfate (Plavix) 75 mg PEG DAILY [facility] Last Admin: 08/10/16 10:58 Dose: 75 mg Famotidine (Pepcid) 20 mg PEG BID [facility] Last Admin: 08/10/16 10:58 Dose: 20 mg Finasteride (Proscar) 5 mg PO DAILY [facility] Last Admin: 08/10/16 10:58 Dose: 5 mg Heparin Sodium (Porcine) (Heparin) 5,000 units SC Q8 [facility] Last Admin: 08/10/16 05:29 Dose: 5,000 units Imipenem/Cilastatin Sodium 500 (mg/ Sodium Chloride) 100 mls @ 100 mls/hr IVPB Q6H [facility] Last Admin: 08/10/16 10:59 Dose: 100 mls/hr Levetiracetam (Keppra) 500 mg PEG BID [facility] Last Admin: 08/10/16 10:59 Dose: 500 mg Mupirocin (Bactroban Ointment) 0 gm TOP DAILY [facility] Last Admin: 08/10/16 10:59 Dose: 1 applic Polyethylene Glycol (Miralax) 17 gm PO QPM [facility] Last Admin: 07/22/16 17:46 Dose: 17 gm Tamsulosin HCl (Flomax) 0.4 mg PO DAILY [facility] Last Admin: 08/10/16 10:58 Dose: 0.4 mg - Labs Labs: 08/10/16 08:13 08/10/16 08:13 PT 10.6 SECONDS (9.7-12.2) 11/24/15 14:10 INR 1.0 11/24/15 14:10 APTT 25 SECONDS (21-34) 11/24/15 14:10 Attending/Attestation - Attestation I have personally seen and examined this patient.: Yes I have fully participated in the care of the patient.: Yes I have reviewed all pertinent clinical information, including history, physical exam and plan: Yes Notes (Text): 08/10/16 12:15 Patient seen and examined at bedside No change in clinical condition Patient is on antibiotics for multidrug-resistant UTI Last date of antibiotic is a 08/12/2016 when he will complete 7 days of antibiotics Patient's Yoo's catheter will be removed at that time Patient's feeding has been changed to continuous feeding at 50 mL/h We will monitor for any abdominal distention or regurgitation Continue to turn and position every 2 hours to prevent decubitus ulcers I agree with the above history and physical and assessment/plan but the resident with the nurse. Amendments
[2016-08-10 08:30] LABS: BASO % 0.5 % (0.0-2.0); EOS # 0.3 K/uL (0.0-0.7); EOS % 3.9 % (0.0-4.0); HEMOGLOBIN 11.7 g/dL (12.0-18.0); LYMPH # 1.5 K/uL (1.0-4.3); LYMPH % 19.2 % (20.0-40.0); MEAN CELL VOLUME 89.5 fL (80.0-94.0); MEAN CORPUSCULAR HGB CONC 33.6 g/dL (33.0-37.0); MEAN PLATELET VOLUME 8.9 fL (7.2-11.7); MONO # 0.5 K/uL (0.0-0.8); MONO % 6.9 % (0.0-10.0); NEUT # 5.3 K/uL (1.8-7.0); NEUT % 69.5 % (50.0-75.0); RBC 3.89 Mil/uL (4.40-5.90); RED CELL DISTRIBUTION WIDTH 14.7 % (11.5-14.5); WHITE BLOOD COUNT 7.6 K/uL (4.8-10.8)
[2016-08-10 09:20] LABS: ALBUMIN 3.5 g/dL (3.5-5.0)
[2016-08-10 09:23] LABS: ALB/GLOB RATIO 0.8 (1.0-2.1); AST/SGOT 25 U/L (17-59); BLOOD UREA NITROGEN 14 mg/dL (9-20); GFR NON-AFRICAN AMERICAN > 60
[2016-08-10 09:24] LABS: ALT/SGPT 42 U/L (21-72); CALCIUM 8.7 mg/dl (8.6-10.4)
[2016-08-10] MEDS: levETIRAcetam 100 mg/ml (5ml) Oral Syringe PEG SCH ×2 (10:59→17:26)
[2016-08-11] MEDS: levETIRAcetam 100 mg/ml (5ml) Oral Syringe PEG SCH ×2 (11:59→18:01)
--- NOTE | 2016-08-11 17:19 | CP.PCM.PN ---
<Bolivar Miller - Last Filed: 08/11/16 18:11> Subjective - Date & Time of Evaluation Date of Evaluation: 08/11/16 Time of Evaluation: 07:45 - Subjective Subjective: Pt seen and examined. Pt unresponsive to verbal stimuli due to anoxic brain injury. No acute events overnight reported. Pt remained stable. ROS unattainable. Objective - Vital Signs/Intake and Output Vital Signs (last 24 hours): Temp Pulse Resp BP Pulse Ox 98.9 F 85 20 120/84 100 08/11/16 16:00 08/11/16 16:00 08/11/16 16:00 08/11/16 16:00 08/11/16 16:00 Intake and Output: 08/11/16 08/11/16 06:59 18:59 Intake Total 760 1120 Output Total 250 1000 Balance 510 120 - Medications Medications: Current Medications Aspirin (Aspirin Chewable) 81 mg PEG DAILY [facility] Last Admin: 08/11/16 11:59 Dose: 81 mg Carvedilol (Coreg) 3.125 mg PO BID [facility] Last Admin: 08/11/16 11:59 Dose: 3.125 mg Clopidogrel Bisulfate (Plavix) 75 mg PEG DAILY [facility] Last Admin: 08/11/16 11:59 Dose: 75 mg Famotidine (Pepcid) 20 mg PEG BID [facility] Last Admin: 08/11/16 11:59 Dose: 20 mg Finasteride (Proscar) 5 mg PO DAILY [facility] Last Admin: 08/11/16 10:00 Dose: 5 mg Heparin Sodium (Porcine) (Heparin) 5,000 units SC Q8 [facility] Last Admin: 08/11/16 14:33 Dose: 5,000 units Imipenem/Cilastatin Sodium 500 (mg/ Sodium Chloride) 100 mls @ 100 mls/hr IVPB Q6H [facility] Last Admin: 08/11/16 11:57 Dose: 100 mls/hr Levetiracetam (Keppra) 500 mg PEG BID [facility] Last Admin: 08/11/16 11:59 Dose: 500 mg Mupirocin (Bactroban Ointment) 0 gm TOP DAILY [facility] Last Admin: 08/11/16 12:00 Dose: 1 applic Polyethylene Glycol (Miralax) 17 gm PO QPM [facility] Last Admin: 07/22/16 17:46 Dose: 17 gm Tamsulosin HCl (Flomax) 0.4 mg PO DAILY [facility] Last Admin: 08/11/16 11:59 Dose: 0.4 mg - Labs Labs: 08/10/16 08:13 08/10/16 08:13 PT 10.6 SECONDS (9.7-12.2) 11/24/15 14:10 INR 1.0 11/24/15 14:10 APTT 25 SECONDS (21-34) 11/24/15 14:10 - Constitutional Appears: Toxic, Cachectic, Chronically Ill - Head Exam Head Exam: ATRAUMATIC, NORMOCEPHALIC - Eye Exam Eye Exam: EOMI, PERRL - ENT Exam ENT Exam: Mucous Membranes Moist. absent: Mucous Membranes Dry - Neck Exam Neck Exam: Full ROM. absent: Lymphadenopathy - Respiratory Exam Respiratory Exam: Rhonchi - Cardiovascular Exam Cardiovascular Exam: +S1. absent: Gallop, Rubs, Murmur - GI/Abdominal Exam GI & Abdominal Exam: Soft, Tenderness, Normal Bowel Sounds - Extremities Exam Extremities Exam: absent: Pedal Edema - Neurological Exam Neurological Exam: absent: Alert, Awake, Oriented x3 - Skin Skin Exam: Normal Color, Warm Assessment and Plan - Assessment and Plan (Free Text) Assessment: Assessment: (1) Urinary Retention 08/10: Stable. Baker catheter in place, draining clear yellow urine 930cc in past 24 hours Continue to monitor I/Os, continue current medical treatment. No change in clinical condition. 08/06: As per ID, Dr. Armstrong, pt started on primaxin 500 mg IV Q6H (based on proteus sensitivity) Flomax 0.4mg PO daily Finasteride 5 mg PO daily Urine Culture positive for proteus Urine protein and urine creatinine (2) Abdominal Distension 08/11: Pt's PEG tube was displaced. Surgery was notified and was replaced. As per surgery, X-ray showed contrast going into the stomach and through the duodenum. Patient could be started back on feeds. Pt started on D5 40 cc/hr. Tube feeds adjusted to 60 cc/hr. 08/10: Resolved. Tube feeds 60cc/hr (6 hours on with 2 hours of bowel rest), no residual. Pt water flushes increased to 200cc of free water via PEG in between feeds 07/23: Feeds are 6 hours off and 2 hours off. Acknowledgment of note per JANET Garcia. These current feeding recommendations were set because patient was having significant residuals with a more sustained feeding schedule hourly. Tube feeds increased to at 60cc/hr (6 hours on with 2 hours of bowel rest), no residual. Pt to begin 100cc of free water via PEG in between feeds 07/18: Continue feedings. Continue with Miralax 17g PEG qHS (3) Failure to thrive 08/10: Continue Tube feeds 60cc/hr (6 hours on with 2 hours of bowel rest), no residual. Pt water flushes increased to 200cc of free water via PEG in between feeds 08/05: weight 63kg Measure weight weekly. (4) Anoxic encephalopathy 08/10: Unchanged. Continue to monitor weekly labs, continue with q2h turning, therapy, feeds through PEG site and suctioning trach routinely Pending placement (5) Respiratory failure 08/10: Continue trach care and suctioning as needed. Continue Primaxin 500mg IV q6h, started on 08/06/16. Trach culture grew gram negative rods on 07/16-ID, Dr. Walden s/p trach Monitor (6) CAD (coronary artery disease) 08/10: Continue current management. s/p cardiac stents on 06/13/15 Continue ASA 81mg via PEG daily Carvedilol 3.125mg PO BID Continue Plavix 75mg via PEG daily (7) Seizures 08/10: Stable at this time. Continue Keppra 500mg PEG BID for seizure prophylaxis Phenytoin d/c due to continued inc in LFT's on 07/21/16. LFTs now stable. (8) Bed sore 08/10: Stage 3 healed sacral ulcer. Continue to turn patient q2hrs Monitor with skin checks (9) Prophylactic measure Pepcid 20 mg PEG BID Heparin 5000u SC q8h SCDs Boots in place <Nathaniel Beth - Last Filed: 08/11/16 19:09> Objective - Vital Signs/Intake and Output Vital Signs (last 24 hours): Temp Pulse Resp BP Pulse Ox 98.9 F 85 20 120/84 100 08/11/16 16:00 08/11/16 16:00 08/11/16 16:00 08/11/16 16:00 08/11/16 16:00 Intake and Output: 08/11/16 08/12/16 18:59 06:59 Intake Total 1120 Output Total 1000 Balance 120 - Medications Medications: Current Medications Aspirin (Aspirin Chewable) 81 mg PEG DAILY [facility] Last Admin: 08/11/16 11:59 Dose: 81 mg Carvedilol (Coreg) 3.125 mg PO BID [facility] Last Admin: 08/11/16 18:01 Dose: 3.125 mg Clopidogrel Bisulfate (Plavix) 75 mg PEG DAILY [facility] Last Admin: 08/11/16 11:59 Dose: 75 mg Famotidine (Pepcid) 20 mg PEG BID [facility] Last Admin: 08/11/16 18:01 Dose: 20 mg Finasteride (Proscar) 5 mg PO DAILY [facility] Last Admin: 08/11/16 10:00 Dose: 5 mg Heparin Sodium (Porcine) (Heparin) 5,000 units SC Q8 [facility] Last Admin: 08/11/16 14:33 Dose: 5,000 units Imipenem/Cilastatin Sodium 500 (mg/ Sodium Chloride) 100 mls @ 100 mls/hr IVPB Q6H [facility] Last Admin: 08/11/16 18:01 Dose: 100 mls/hr Dextrose (Dextrose 5% In Water 1000 Ml) 1,000 mls @ 40 mls/hr IV .Q24H [facility] Levetiracetam (Keppra) 500 mg PEG BID [facility] Last Admin: 08/11/16 18:01 Dose: 500 mg Mupirocin (Bactroban Ointment) 0 gm TOP DAILY [facility] Last Admin: 08/11/16 12:00 Dose: 1 applic Polyethylene Glycol (Miralax) 17 gm PO QPM [facility] Last Admin: 07/22/16 17:46 Dose: 17 gm Tamsulosin HCl (Flomax) 0.4 mg PO DAILY [facility] Last Admin: 08/11/16 11:59 Dose: 0.4 mg - Labs Labs: 08/10/16 08:13 08/10/16 08:13 PT 10.6 SECONDS (9.7-12.2) 11/24/15 14:10 INR 1.0 11/24/15 14:10 APTT 25 SECONDS (21-34) 11/24/15 14:10 Attending/Attestation - Attestation I have personally seen and examined this patient.: Yes I have fully participated in the care of the patient.: Yes I have reviewed all pertinent clinical information, including history, physical exam and plan: Yes Notes (Text): Patient seen and examined; I agree with the resident's assessment/plan as above with the following additions: Patient with prolonged hospital course s/p cardiac arrest and subsequent anoxic encephalopathy; Active issues are urinary retention for which baker was re-placed; on imipenem for complicated UTI day 6; Also, today, G-tube was noted to be dislodged; sugery consult service appreciated; new tube placed back with abd xray showing Gastrograffin in stomach /duodenum per surgery; Borderline hypernatremia; tube feeds changed to continuous yesterday at 50 cc/hr ; will need to check for residuals; on free water 250 cc q8h; No heel or sacral ulcers seen today on my exam; -Repeat CMP in 2 days to monitor Na -voiding trial after abx completed (in 2 days) 08/11/16 19:03
--- NOTE | 2016-08-11 17:20 | RAD ---
HISTORY: s/p peg tube insertion bedside COMPARISON: No prior. FINDINGS: BOWEL: Normal. No obstruction. No free air. BONES: Normal. OTHER FINDINGS: There is a peg tube present. IMPRESSION: No active disease.
--- NOTE | 2016-08-11 17:35 | CP.PCM.PN ---
Subjective - Date & Time of Evaluation Date of Evaluation: 08/11/16 Time of Evaluation: 04:30 - Subjective Subjective: PROCEDURE NOTE FOR DR. VALLEJO PROCEDURE: Bedside PEG tube placement Original PEG tube came out. New tube was inserted through the same incision that was made for his original PEG tube approximately one year ago. The tube entered the stomach with ease and the balloon was inflated with 20cc of Normal saline fluid. Tube was pulled back to make sure it was secure. Maneuver proved tube to be in place. X-ray with grastrograffin was ordered and done. X-ray showed contrast going into the stomach and through the duodenum. Patient can be started back on feeds. Miguel Bauer, PGY1 Objective - Vital Signs/Intake and Output Vital Signs (last 24 hours): Temp Pulse Resp BP Pulse Ox 98.9 F 85 20 120/84 100 08/11/16 16:00 08/11/16 16:00 08/11/16 16:00 08/11/16 16:00 08/11/16 16:00 Intake and Output: 08/11/16 08/11/16 06:59 18:59 Intake Total 760 1120 Output Total 250 1000 Balance 510 120 - Medications Medications: Current Medications Aspirin (Aspirin Chewable) 81 mg PEG DAILY [facility] Last Admin: 08/11/16 11:59 Dose: 81 mg Carvedilol (Coreg) 3.125 mg PO BID [facility] Last Admin: 08/11/16 11:59 Dose: 3.125 mg Clopidogrel Bisulfate (Plavix) 75 mg PEG DAILY [facility] Last Admin: 08/11/16 11:59 Dose: 75 mg Famotidine (Pepcid) 20 mg PEG BID [facility] Last Admin: 08/11/16 11:59 Dose: 20 mg Finasteride (Proscar) 5 mg PO DAILY [facility] Last Admin: 08/11/16 10:00 Dose: 5 mg Heparin Sodium (Porcine) (Heparin) 5,000 units SC Q8 [facility] Last Admin: 08/11/16 14:33 Dose: 5,000 units Imipenem/Cilastatin Sodium 500 (mg/ Sodium Chloride) 100 mls @ 100 mls/hr IVPB Q6H [facility] Last Admin: 08/11/16 11:57 Dose: 100 mls/hr Levetiracetam (Keppra) 500 mg PEG BID [facility] Last Admin: 08/11/16 11:59 Dose: 500 mg Mupirocin (Bactroban Ointment) 0 gm TOP DAILY [facility] Last Admin: 08/11/16 12:00 Dose: 1 applic Polyethylene Glycol (Miralax) 17 gm PO QPM [facility] Last Admin: 07/22/16 17:46 Dose: 17 gm Tamsulosin HCl (Flomax) 0.4 mg PO DAILY [facility] Last Admin: 08/11/16 11:59 Dose: 0.4 mg - Labs Labs: 08/10/16 08:13 08/10/16 08:13 PT 10.6 SECONDS (9.7-12.2) 11/24/15 14:10 INR 1.0 11/24/15 14:10 APTT 25 SECONDS (21-34) 11/24/15 14:10
--- NOTE | 2016-08-12 10:14 | CP.PCM.PN ---
<Bolivar Miller - Last Filed: 08/12/16 18:35> Subjective - Date & Time of Evaluation Date of Evaluation: 08/11/16 Time of Evaluation: 07:15 - Subjective Subjective: Pt seen and examined. Pt unresponsive due to anoxic brain injury. Pt on continuous feed 60 cc/hr. ROS unattainable. Objective - Vital Signs/Intake and Output Vital Signs (last 24 hours): Temp Pulse Resp BP Pulse Ox 97.5 F L 84 20 116/80 98 08/12/16 08:40 08/12/16 08:40 08/12/16 08:40 08/12/16 08:40 08/12/16 08:40 Intake and Output: 08/12/16 08/12/16 06:59 18:59 Intake Total 1740 Output Total 1000 Balance 740 - Medications Medications: Current Medications Aspirin (Aspirin Chewable) 81 mg PEG DAILY [facility] Last Admin: 08/11/16 11:59 Dose: 81 mg Carvedilol (Coreg) 3.125 mg PO BID [facility] Last Admin: 08/11/16 18:01 Dose: 3.125 mg Clopidogrel Bisulfate (Plavix) 75 mg PEG DAILY [facility] Last Admin: 08/11/16 11:59 Dose: 75 mg Famotidine (Pepcid) 20 mg PEG BID [facility] Last Admin: 08/11/16 18:01 Dose: 20 mg Finasteride (Proscar) 5 mg PO DAILY [facility] Last Admin: 08/11/16 10:00 Dose: 5 mg Heparin Sodium (Porcine) (Heparin) 5,000 units SC Q8 [facility] Last Admin: 08/12/16 07:35 Dose: 5,000 units Imipenem/Cilastatin Sodium 500 (mg/ Sodium Chloride) 100 mls @ 100 mls/hr IVPB Q6H [facility] Last Admin: 08/12/16 03:52 Dose: 100 mls/hr Dextrose (Dextrose 5% In Water 1000 Ml) 1,000 mls @ 40 mls/hr IV .Q24H [facility] Last Admin: 08/11/16 20:24 Dose: 40 mls/hr Influenza Virus Vaccine (Afluria) 45 mcg IM .ONCE ONE Stop: 08/13/16 10:00 Levetiracetam (Keppra) 500 mg PEG BID [facility] Last Admin: 08/11/16 18:01 Dose: 500 mg Mupirocin (Bactroban Ointment) 0 gm TOP DAILY [facility] Last Admin: 08/11/16 12:00 Dose: 1 applic Polyethylene Glycol (Miralax) 17 gm PO QPM [facility] Last Admin: 07/22/16 17:46 Dose: 17 gm Tamsulosin HCl (Flomax) 0.4 mg PO DAILY [facility] Last Admin: 08/11/16 11:59 Dose: 0.4 mg - Labs Labs: 08/10/16 08:13 08/10/16 08:13 PT 10.6 SECONDS (9.7-12.2) 11/24/15 14:10 INR 1.0 11/24/15 14:10 APTT 25 SECONDS (21-34) 11/24/15 14:10 - Constitutional Appears: Toxic, Chronically Ill - Head Exam Head Exam: ATRAUMATIC, NORMOCEPHALIC - Eye Exam Eye Exam: absent: EOMI Pupil Exam: Fixed - ENT Exam ENT Exam: Mucous Membranes Moist - Neck Exam Neck Exam: Full ROM, Thyromegaly. absent: Lymphadenopathy - Cardiovascular Exam Cardiovascular Exam: +S1, +S2. absent: Gallop, Rubs - GI/Abdominal Exam GI & Abdominal Exam: Soft. absent: Tenderness - Extremities Exam Extremities Exam: Full ROM. absent: Pedal Edema - Neurological Exam Neurological Exam: absent: Alert, Awake, Oriented x3 - Skin Skin Exam: Normal Color, Warm Assessment and Plan - Assessment and Plan (Free Text) Assessment: (1) Urinary Retention 08/12: f/u voiding trial cristy 08/10: Stable. Baker catheter in place, draining clear yellow urine 930cc in past 24 hours Continue to monitor I/Os, continue current medical treatment. No change in clinical condition. 08/06: As per ID, Dr. Armstrong, pt started on primaxin 500 mg IV Q6H (based on proteus sensitivity) Flomax 0.4mg PO daily Finasteride 5 mg PO daily Urine Culture positive for proteus Urine protein and urine creatinine (2) Abdominal Distension 08/11: Pt's PEG tube was displaced. Surgery was notified and was replaced. As per surgery, X-ray showed contrast going into the stomach and through the duodenum. Patient could be started back on feeds. Pt started on D5 40 cc/hr. Tube feeds adjusted to 60 cc/hr. 08/10: Resolved. Tube feeds 60cc/hr (6 hours on with 2 hours of bowel rest), no residual. Pt water flushes increased to 200cc of free water via PEG in between feeds 07/23: Feeds are 6 hours off and 2 hours off. Acknowledgment of note per JANET Garcia. These current feeding recommendations were set because patient was having significant residuals with a more sustained feeding schedule hourly. Tube feeds increased to at 60cc/hr (6 hours on with 2 hours of bowel rest), no residual. Pt to begin 100cc of free water via PEG in between feeds 07/18: Continue feedings. Continue with Miralax 17g PEG qHS (3) Failure to thrive 08/10: Continue Tube feeds 60cc/hr (6 hours on with 2 hours of bowel rest), no residual. Pt water flushes increased to 200cc of free water via PEG in between feeds 08/05: weight 63kg Measure weight weekly. (4) Anoxic encephalopathy 08/10: Unchanged. Continue to monitor weekly labs, continue with q2h turning, therapy, feeds through PEG site and suctioning trach routinely Pending placement (5) Respiratory failure 08/10: Continue trach care and suctioning as needed. Continue Primaxin 500mg IV q6h, started on 08/06/16. Trach culture grew gram negative rods on 07/16-ID, Dr. Walden s/p trach Monitor (6) CAD (coronary artery disease) 08/10: Continue current management. s/p cardiac stents on 06/13/15 Continue ASA 81mg via PEG daily Carvedilol 3.125mg PO BID Continue Plavix 75mg via PEG daily (7) Seizures 08/10: Stable at this time. Continue Keppra 500mg PEG BID for seizure prophylaxis Phenytoin d/c due to continued inc in LFT's on 07/21/16. LFTs now stable. (8) Bed sore 08/10: Stage 3 healed sacral ulcer. Continue to turn patient q2hrs Monitor with skin checks (9) Prophylactic measure Pepcid 20 mg PEG BID Heparin 5000u SC q8h [facility] Boots in place <Nathaniel Beth - Last Filed: 08/13/16 09:57> Objective - Vital Signs/Intake and Output Vital Signs (last 24 hours): Temp Pulse Resp BP Pulse Ox 97.8 F 76 20 116/76 100 09/21/16 08:00 08/13/16 08:00 08/13/16 08:00 08/13/16 08:00 08/13/16 08:00 Intake and Output: 08/13/16 08/13/16 06:59 18:59 Intake Total 780 Output Total 600 Balance 180 - Medications Medications: Current Medications Aspirin (Aspirin Chewable) 81 mg PEG DAILY [facility] Last Admin: 08/12/16 10:32 Dose: 81 mg Carvedilol (Coreg) 3.125 mg PO BID [facility] Last Admin: 08/12/16 18:00 Dose: 3.125 mg Clopidogrel Bisulfate (Plavix) 75 mg PEG DAILY [facility] Last Admin: 08/12/16 10:32 Dose: 75 mg Famotidine (Pepcid) 20 mg PEG BID [facility] Last Admin: 08/12/16 18:00 Dose: 20 mg Finasteride (Proscar) 5 mg PO DAILY [facility] Last Admin: 08/12/16 10:33 Dose: 5 mg Imipenem/Cilastatin Sodium 500 (mg/ Sodium Chloride) 100 mls @ 100 mls/hr IVPB Q6H [facility] Last Admin: 08/13/16 03:46 Dose: 100 mls/hr Influenza Virus Vaccine (Afluria) 45 mcg IM .ONCE ONE Stop: 08/13/16 10:00 Levetiracetam (Keppra) 500 mg PEG BID [facility] Last Admin: 08/12/16 18:00 Dose: 500 mg Mupirocin (Bactroban Ointment) 0 gm TOP DAILY [facility] Last Admin: 08/12/16 10:00 Dose: 1 applic Polyethylene Glycol (Miralax) 17 gm PO QPM [facility] Last Admin: 07/22/16 17:46 Dose: 17 gm Tamsulosin HCl (Flomax) 0.4 mg PO DAILY [facility] Last Admin: 08/12/16 10:32 Dose: 0.4 mg - Labs Labs: 08/10/16 08:13 08/10/16 08:13 PT 10.6 SECONDS (9.7-12.2) 11/24/15 14:10 INR 1.0 11/24/15 14:10 APTT 25 SECONDS (21-34) 11/24/15 14:10 Attending/Attestation - Attestation I have personally seen and examined this patient.: Yes I have fully participated in the care of the patient.: Yes I have reviewed all pertinent clinical information, including history, physical exam and plan: Yes Notes (Text): Patient seen and examined; I agree with the resident's a/p as above with the following additions/edits: Being treated for recurrent UTI; on day 7/7 of imipenem; also with urinary retention, baker in place; Mild hyponatremia, being treated with free H20 flushes; -complete imipenem course (last dose tomorrow morning) -voiding trial tomorrow -continue flomax and finasteride -Feeds changed to continous at 50 cc/hr (no more resting intervals); need to assess residuals -continue free H20 flushes; bmp later this week
[2016-08-12] MEDS: levETIRAcetam 100 mg/ml (5ml) Oral Syringe PEG SCH ×2 (10:33→18:00)
--- NOTE | 2016-08-13 09:53 | CP.PCM.PN ---
<Nathaniel Beth - Last Filed: 08/13/16 18:40> Objective - Vital Signs/Intake and Output Vital Signs (last 24 hours): Temp Pulse Resp BP Pulse Ox 98.5 F 64 20 112/77 100 08/13/16 16:00 08/13/16 16:00 08/13/16 16:00 08/13/16 16:00 08/13/16 16:00 Intake and Output: 08/13/16 08/13/16 06:59 18:59 Intake Total 780 720 Output Total 600 800 Balance 180 -80 - Medications Medications: Current Medications Aspirin (Aspirin Chewable) 81 mg PEG DAILY [facility] Last Admin: 08/13/16 11:12 Dose: 81 mg Carvedilol (Coreg) 3.125 mg PO BID [facility] Last Admin: 08/13/16 11:11 Dose: 3.125 mg Clopidogrel Bisulfate (Plavix) 75 mg PEG DAILY [facility] Last Admin: 08/13/16 11:11 Dose: 75 mg Famotidine (Pepcid) 20 mg PEG BID [facility] Last Admin: 08/13/16 11:11 Dose: 20 mg Finasteride (Proscar) 5 mg PO DAILY [facility] Last Admin: 08/13/16 11:25 Dose: 5 mg Imipenem/Cilastatin Sodium 500 (mg/ Sodium Chloride) 100 mls @ 100 mls/hr IVPB Q6H [facility] Last Admin: 08/13/16 11:24 Dose: 100 mls/hr Levetiracetam (Keppra) 500 mg PEG BID [facility] Last Admin: 08/13/16 11:11 Dose: 500 mg Mupirocin (Bactroban Ointment) 0 gm TOP DAILY [facility] Last Admin: 08/13/16 11:11 Dose: 1 applic Polyethylene Glycol (Miralax) 17 gm PO QPM [facility] Last Admin: 07/22/16 17:46 Dose: 17 gm Tamsulosin HCl (Flomax) 0.4 mg PO DAILY [facility] Last Admin: 08/13/16 11:25 Dose: 0.4 mg - Labs Labs: 08/10/16 08:13 08/10/16 08:13 PT 10.6 SECONDS (9.7-12.2) 11/24/15 14:10 INR 1.0 11/24/15 14:10 APTT 25 SECONDS (21-34) 11/24/15 14:10 Attending/Attestation - Attestation I have personally seen and examined this patient.: Yes I have fully participated in the care of the patient.: Yes I have reviewed all pertinent clinical information, including history, physical exam and plan: Yes Notes (Text): Patient seen and examined; Prolonged hospital course s/p cardiac arrest with severe anoxic encephalopathy, unable to be placed into longterm facility; Active issues: Recurrent UTI - Completed 7 days of imipenem; Urinary retention - Has had baker in place for past week; on flomax; baker discontinued today for voiding trial; will need to assess post void residual using bladder scan/catheter; Hypernatremia - Mild; on continuous feeds now at 50 cc/hr with 250 cc free H20 flushes q8h; will check bmp tomorrow. 08/13/16 18:40 <Bolivar Miller - Last Filed: 08/13/16 19:24> Subjective - Date & Time of Evaluation Date of Evaluation: 08/13/16 Time of Evaluation: 07:15 - Subjective Subjective: Pt seen and examined. Pt unresponsive to verbal stimuli due to anoxic encephalopathy. ROS unnattainable. Objective - Vital Signs/Intake and Output Vital Signs (last 24 hours): Temp Pulse Resp BP Pulse Ox 97.8 F 76 20 116/76 100 08/13/16 08:00 08/13/16 08:00 08/13/16 08:00 08/13/16 08:00 08/13/16 08:00 Intake and Output: 08/13/16 08/13/16 06:59 18:59 Intake Total 780 Output Total 600 Balance 180 - Medications Medications: Current Medications Aspirin (Aspirin Chewable) 81 mg PEG DAILY [facility] Last Admin: 08/12/16 10:32 Dose: 81 mg Carvedilol (Coreg) 3.125 mg PO BID [facility] Last Admin: 08/12/16 18:00 Dose: 3.125 mg Clopidogrel Bisulfate (Plavix) 75 mg PEG DAILY [facility] Last Admin: 08/12/16 10:32 Dose: 75 mg Famotidine (Pepcid) 20 mg PEG BID [facility] Last Admin: 08/12/16 18:00 Dose: 20 mg Finasteride (Proscar) 5 mg PO DAILY [facility] Last Admin: 08/12/16 10:33 Dose: 5 mg Imipenem/Cilastatin Sodium 500 (mg/ Sodium Chloride) 100 mls @ 100 mls/hr IVPB Q6H [facility] Last Admin: 08/13/16 03:46 Dose: 100 mls/hr Influenza Virus Vaccine (Afluria) 45 mcg IM .ONCE ONE Stop: 08/13/16 10:00 Levetiracetam (Keppra) 500 mg PEG BID [facility] Last Admin: 08/12/16 18:00 Dose: 500 mg Mupirocin (Bactroban Ointment) 0 gm TOP DAILY [facility] Last Admin: 08/12/16 10:00 Dose: 1 applic Polyethylene Glycol (Miralax) 17 gm PO QPM [facility] Last Admin: 07/22/16 17:46 Dose: 17 gm Tamsulosin HCl (Flomax) 0.4 mg PO DAILY [facility] Last Admin: 08/12/16 10:32 Dose: 0.4 mg - Labs Labs: 08/10/16 08:13 08/10/16 08:13 PT 10.6 SECONDS (9.7-12.2) 11/24/15 14:10 INR 1.0 11/24/15 14:10 APTT 25 SECONDS (21-34) 11/24/15 14:10 - Constitutional Appears: Cachectic, Chronically Ill - Head Exam Head Exam: ATRAUMATIC, NORMOCEPHALIC - Eye Exam Eye Exam: absent: EOMI, PERRL Pupil Exam: absent: PERRL - ENT Exam ENT Exam: Mucous Membranes Moist. absent: Mucous Membranes Dry - Neck Exam Neck Exam: absent: Lymphadenopathy - Respiratory Exam Respiratory Exam: Decreased Breath Sounds. absent: Rhonchi, Wheezes - Cardiovascular Exam Cardiovascular Exam: +S1, +S2. absent: Gallop, Rubs, Murmur - GI/Abdominal Exam GI & Abdominal Exam: Soft, Tenderness, Hypoactive Bowel Sounds - Extremities Exam Extremities Exam: absent: Pedal Edema - Neurological Exam Additional comments: PT unresponsive to verbal stimuli due to anoxic brain injury Assessment and Plan - Assessment and Plan (Free Text) Assessment: (1) Urinary Retention 08/13: Baker d/c'd, pt had urinal placed by nurse, even though specifically instructed to put on condom cap pt had 200+ ml of urine and there was a leak so actual amount could not be asertained Nurse instructed to strictly have condom cap placed on f/u BMP 08/12: f/u voiding trial cristy 08/10: Stable. Baker catheter in place, draining clear yellow urine 930cc in past 24 hours Continue to monitor I/Os, continue current medical treatment. No change in clinical condition. 08/06: As per ID, Dr. Armstrong, pt started on primaxin 500 mg IV Q6H (based on proteus sensitivity) Flomax 0.4mg PO daily Finasteride 5 mg PO daily Urine Culture positive for proteus Urine protein and urine creatinine (2) Abdominal Distension 08/11: Pt's PEG tube was displaced. Surgery was notified and was replaced. As per surgery, X-ray showed contrast going into the stomach and through the duodenum. Patient could be started back on feeds. Pt started on D5 40 cc/hr. Tube feeds adjusted to 60 cc/hr. 08/10: Resolved. Tube feeds 60cc/hr (6 hours on with 2 hours of bowel rest), no residual. Pt water flushes increased to 200cc of free water via PEG in between feeds 07/23: Feeds are 6 hours off and 2 hours off. Acknowledgment of note per JANET Garcia. These current feeding recommendations were set because patient was having significant residuals with a more sustained feeding schedule hourly. Tube feeds increased to at 60cc/hr (6 hours on with 2 hours of bowel rest), no residual. Pt to begin 100cc of free water via PEG in between feeds 07/18: Continue feedings. Continue with Miralax 17g PEG qHS (3) Failure to thrive 08/10: Continue Tube feeds 60cc/hr (6 hours on with 2 hours of bowel rest), no residual. Pt water flushes increased to 200cc of free water via PEG in between feeds 08/05: weight 63kg Measure weight weekly. (4) Anoxic encephalopathy 08/10: Unchanged. Continue to monitor weekly labs, continue with q2h turning, therapy, feeds through PEG site and suctioning trach routinely Pending placement (5) Respiratory failure 08/10: Continue trach care and suctioning as needed. Continue Primaxin 500mg IV q6h, started on 08/06/16. Trach culture grew gram negative rods on 07/16-ID, Dr. Walden s/p trach Monitor (6) CAD (coronary artery disease) 08/10: Continue current management. s/p cardiac stents on 06/13/15 Continue ASA 81mg via PEG daily Carvedilol 3.125mg PO BID Continue Plavix 75mg via PEG daily (7) Seizures 08/10: Stable at this time. Continue Keppra 500mg PEG BID for seizure prophylaxis Phenytoin d/c due to continued inc in LFT's on 07/21/16. LFTs now stable. (8) Bed sore 08/10: Stage 3 healed sacral ulcer. Continue to turn patient q2hrs Monitor with skin checks (9) Prophylactic measure Pepcid 20 mg PEG BID Heparin 5000u SC q8h S[facility]s Boots in place
[2016-08-13] MEDS: levETIRAcetam 100 mg/ml (5ml) Oral Syringe PEG SCH ×2 (11:11→18:00)
[2016-08-14 07:56] LABS: ALBUMIN 3.6 g/dL (3.5-5.0)
[2016-08-14 08:00] LABS: GFR NON-AFRICAN AMERICAN > 60
[2016-08-14 08:01] LABS: ALB/GLOB RATIO 0.8 (1.0-2.1); ALT/SGPT 44 U/L (21-72); AST/SGOT 37 U/L (17-59); BLOOD UREA NITROGEN 15 mg/dL (9-20); CALCIUM 8.9 mg/dl (8.6-10.4)
[2016-08-14] MEDS: levETIRAcetam 100 mg/ml (5ml) Oral Syringe PEG SCH ×2 (11:17→18:00)
--- NOTE | 2016-08-14 16:39 | CP.PCM.PN ---
<Bolivar Miller - Last Filed: 08/14/16 16:35> Subjective - Date & Time of Evaluation Date of Evaluation: 08/14/16 Time of Evaluation: 07:15 - Subjective Subjective: Pt seen and examined. Pt unresponsive to verbal stimuli due to anoxic brain injury. ROS unattainable. Objective - Vital Signs/Intake and Output Vital Signs (last 24 hours): Temp Pulse Resp BP Pulse Ox 98.7 F 114 H 20 116/78 96 08/14/16 07:52 08/14/16 07:52 08/14/16 07:52 08/14/16 07:52 08/14/16 07:52 Intake and Output: 08/14/16 08/14/16 06:59 18:59 Intake Total 1560 680 Output Total 450 300 Balance 1110 380 - Medications Medications: Current Medications Aspirin (Aspirin Chewable) 81 mg PEG DAILY [facility] Last Admin: 08/14/16 11:17 Dose: 81 mg Carvedilol (Coreg) 3.125 mg PO BID [facility] Last Admin: 08/14/16 11:17 Dose: 3.125 mg Clopidogrel Bisulfate (Plavix) 75 mg PEG DAILY [facility] Last Admin: 08/14/16 11:17 Dose: 75 mg Famotidine (Pepcid) 20 mg PEG BID [facility] Last Admin: 08/14/16 11:17 Dose: 20 mg Finasteride (Proscar) 5 mg PO DAILY [facility] Last Admin: 08/14/16 11:21 Dose: 5 mg Heparin Sodium (Porcine) (Heparin) 5,000 units SC Q12 [facility] Levetiracetam (Keppra) 500 mg PEG BID [facility] Last Admin: 08/14/16 11:17 Dose: 500 mg Mupirocin (Bactroban Ointment) 0 gm TOP DAILY [facility] Last Admin: 08/14/16 11:18 Dose: 1 applic Polyethylene Glycol (Miralax) 17 gm PO QPM [facility] Last Admin: 07/22/16 17:46 Dose: 17 gm Tamsulosin HCl (Flomax) 0.4 mg PO DAILY [facility] Last Admin: 08/14/16 11:17 Dose: 0.4 mg - Labs Labs: 08/10/16 08:13 08/14/16 07:33 PT 10.6 SECONDS (9.7-12.2) 01/02/16 14:10 INR 1.0 11/24/15 14:10 APTT 25 SECONDS (21-34) 11/24/15 14:10 - Constitutional Appears: Chronically Ill - Head Exam Head Exam: ATRAUMATIC, NORMOCEPHALIC - Eye Exam Eye Exam: absent: EOMI, PERRL - ENT Exam ENT Exam: Mucous Membranes Moist - Neck Exam Neck Exam: Full ROM. absent: Lymphadenopathy - Respiratory Exam Respiratory Exam: Decreased Breath Sounds - Cardiovascular Exam Cardiovascular Exam: +S1, +S2. absent: Gallop, Rubs, Murmur - GI/Abdominal Exam GI & Abdominal Exam: Soft, Hypoactive Bowel Sounds - Extremities Exam Extremities Exam: Normal Capillary Refill ( ). absent: Pedal Edema - Neurological Exam Neurological Exam: absent: Alert, Awake, Oriented x3 Additional comments: Pt unresponsive - Psychiatric Exam Psychiatric exam: absent: Normal Affect, Normal Mood - Skin Skin Exam: Normal Color, Warm Assessment and Plan - Assessment and Plan (Free Text) Assessment: Assessment: (1) Urinary Retention 08/14: Bladder scan f/u results and check for residual urine 08/13: Baker d/c'd, pt had urinal placed by nurse, even though specifically instructed to put on condom cap pt had 200+ ml of urine and there was a leak so actual amount could not be asertained Nurse instructed to strictly have condom cap placed on f/u BMP 08/12: f/u voiding trial cristy 08/10: Stable. Baker catheter in place, draining clear yellow urine 930cc in past 24 hours Continue to monitor I/Os, continue current medical treatment. No change in clinical condition. 08/06: As per ID, Dr. Armstrong, pt started on primaxin 500 mg IV Q6H (based on proteus sensitivity) Flomax 0.4mg PO daily Finasteride 5 mg PO daily Urine Culture positive for proteus Urine protein and urine creatinine (2) Abdominal Distension 08/11: Pt's PEG tube was displaced. Surgery was notified and was replaced. As per surgery, X-ray showed contrast going into the stomach and through the duodenum. Patient could be started back on feeds. Pt started on D5 40 cc/hr. Tube feeds adjusted to 60 cc/hr. 08/10: Resolved. Tube feeds 60cc/hr (6 hours on with 2 hours of bowel rest), no residual. Pt water flushes increased to 200cc of free water via PEG in between feeds 07/23: Feeds are 6 hours off and 2 hours off. Acknowledgment of note per JANET Garcia. These current feeding recommendations were set because patient was having significant residuals with a more sustained feeding schedule hourly. Tube feeds increased to at 60cc/hr (6 hours on with 2 hours of bowel rest), no residual. Pt to begin 100cc of free water via PEG in between feeds 07/18: Continue feedings. Continue with Miralax 17g PEG qHS (3) Failure to thrive 08/10: Continue Tube feeds 60cc/hr (6 hours on with 2 hours of bowel rest), no residual. Pt water flushes increased to 200cc of free water via PEG in between feeds 08/05: weight 63kg Measure weight weekly. (4) Anoxic encephalopathy 08/10: Unchanged. Continue to monitor weekly labs, continue with q2h turning, therapy, feeds through PEG site and suctioning trach routinely Pending placement (5) Respiratory failure 08/10: Continue trach care and suctioning as needed. Continue Primaxin 500mg IV q6h, started on 08/06/16. Trach culture grew gram negative rods on 07/16-ID, Dr. Walden s/p trach Monitor (6) CAD (coronary artery disease) 08/10: Continue current management. s/p cardiac stents on 06/13/15 Continue ASA 81mg via PEG daily Carvedilol 3.125mg PO BID Continue Plavix 75mg via PEG daily (7) Seizures 08/10: Stable at this time. Continue Keppra 500mg PEG BID for seizure prophylaxis Phenytoin d/c due to continued inc in LFT's on 07/21/16. LFTs now stable. (8) Bed sore 08/10: Stage 3 healed sacral ulcer. Continue to turn patient q2hrs Monitor with skin checks (9) Prophylactic measure Pepcid 20 mg PEG BID Heparin 5000u SC q8h SCDs Boots in place <Nathaniel Beth - Last Filed: 08/15/16 07:55> Objective - Vital Signs/Intake and Output Vital Signs (last 24 hours): Temp Pulse Resp BP Pulse Ox 98.2 F 84 20 123/79 99 08/15/16 00:05 08/15/16 00:05 08/15/16 00:05 08/15/16 00:05 08/15/16 00:05 Intake and Output: 08/15/16 08/15/16 06:59 18:59 Intake Total 680 Output Total 350 Balance 330 - Medications Medications: Current Medications Aspirin (Aspirin Chewable) 81 mg PEG DAILY [facility] Last Admin: 08/14/16 11:17 Dose: 81 mg Carvedilol (Coreg) 3.125 mg PO BID [facility] Last Admin: 08/14/16 18:00 Dose: 3.125 mg Clopidogrel Bisulfate (Plavix) 75 mg PEG DAILY [facility] Last Admin: 08/14/16 11:17 Dose: 75 mg Famotidine (Pepcid) 20 mg PEG BID [facility] Last Admin: 08/14/16 18:00 Dose: 20 mg Finasteride (Proscar) 5 mg PO DAILY [facility] Last Admin: 08/14/16 11:21 Dose: 5 mg Heparin Sodium (Porcine) (Heparin) 5,000 units SC Q12 [facility] Last Admin: 08/14/16 22:09 Dose: 5,000 units Levetiracetam (Keppra) 500 mg PEG BID [facility] Last Admin: 08/14/16 18:00 Dose: 500 mg Mupirocin (Bactroban Ointment) 0 gm TOP DAILY [facility] Last Admin: 08/14/16 11:18 Dose: 1 applic Polyethylene Glycol (Miralax) 17 gm PO QPM [facility] Last Admin: 07/22/16 17:46 Dose: 17 gm Tamsulosin HCl (Flomax) 0.4 mg PO DAILY [facility] Last Admin: 08/14/16 11:17 Dose: 0.4 mg - Labs Labs: 08/10/16 08:13 08/14/16 07:33 PT 10.6 SECONDS (9.7-12.2) 11/24/15 14:10 INR 1.0 11/24/15 14:10 APTT 25 SECONDS (21-34) 11/24/15 14:10 Attending/Attestation - Attestation I have personally seen and examined this patient.: Yes I have reviewed all pertinent clinical information, including history, physical exam and plan: Yes Notes (Text): Patient seen and examined; I agree with the resident's A/P as above with the following additions/edits: Patient with prolonged hospital course due to inability to find penitentiary placement following anoxic encephalopathy s/p cardiac arrest; Active issues: s/p UTI tx, last abx dose yesterday; monitor weekly WBC count; Urinary retention; baker discontinued yesterday; passing urine; need to check bladder scan for PVR; Hyponatremia, mild; resolved; continue weekly cmp; Feeds changed to continous this week; check periodic residual feed volume; No sacral/heel ulcers per my exam today;
[2016-08-15] MEDS: levETIRAcetam 100 mg/ml (5ml) Oral Syringe PEG SCH ×2 (09:55→18:00)
--- NOTE | 2016-08-15 10:27 | CP.PCM.PN ---
<May Robles - Last Filed: 08/15/16 10:22> Subjective - Date & Time of Evaluation Date of Evaluation: 08/15/16 Time of Evaluation: 10:22 - Subjective Subjective: Medicine note: Dr Noriega Patient seen at bedside. Not responsive to command. trach collar present with mild yellowish sputum. Afebrile. PEG tube in place. No feedings running at this time. No acute overnight events per staff. Objective - Vital Signs/Intake and Output Vital Signs (last 24 hours): Temp Pulse Resp BP Pulse Ox 98.6 F 76 20 107/62 100 08/15/16 07:00 08/15/16 07:00 08/15/16 07:00 08/15/16 07:00 08/15/16 07:00 Intake and Output: 08/15/16 08/15/16 06:59 18:59 Intake Total 1360 Output Total 650 Balance 710 - Medications Medications: Current Medications Aspirin (Aspirin Chewable) 81 mg PEG DAILY [facility] Last Admin: 08/15/16 09:55 Dose: 81 mg Carvedilol (Coreg) 3.125 mg PO BID [facility] Last Admin: 08/15/16 09:56 Dose: 3.125 mg Clopidogrel Bisulfate (Plavix) 75 mg PEG DAILY [facility] Last Admin: 08/15/16 09:56 Dose: 75 mg Famotidine (Pepcid) 20 mg PEG BID [facility] Last Admin: 08/15/16 09:56 Dose: 20 mg Finasteride (Proscar) 5 mg PO DAILY [facility] Last Admin: 08/15/16 09:57 Dose: 5 mg Heparin Sodium (Porcine) (Heparin) 5,000 units SC Q12 [facility] Last Admin: 08/15/16 09:55 Dose: 5,000 units Levetiracetam (Keppra) 500 mg PEG BID [facility] Last Admin: 08/15/16 09:55 Dose: 500 mg Mupirocin (Bactroban Ointment) 0 gm TOP DAILY [facility] Last Admin: 08/15/16 09:57 Dose: 1 applic Polyethylene Glycol (Miralax) 17 gm PO QPM [facility] Last Admin: 07/22/16 17:46 Dose: 17 gm Tamsulosin HCl (Flomax) 0.4 mg PO DAILY [facility] Last Admin: 08/15/16 09:57 Dose: 0.4 mg - Labs Labs: 08/10/16 08:13 08/14/16 07:33 PT 10.6 SECONDS (9.7-12.2) 11/24/15 14:10 INR 1.0 11/24/15 14:10 APTT 25 SECONDS (21-34) 11/24/15 14:10 - Constitutional Appears: Chronically Ill - Head Exam Head Exam: ATRAUMATIC, NORMAL INSPECTION, NORMOCEPHALIC - Eye Exam Eye Exam: EOMI, Normal appearance - ENT Exam ENT Exam: Mucous Membranes Moist - Neck Exam Additional comments: + trach collar - Respiratory Exam Respiratory Exam: Rales, Rhonchi. absent: Chest Wall Tenderness, Wheezes - Cardiovascular Exam Cardiovascular Exam: REGULAR RHYTHM. absent: Murmur - GI/Abdominal Exam GI & Abdominal Exam: Soft. absent: Distended, Guarding, Tenderness Additional comments: + PEG tube. No drainage. - Extremities Exam Extremities Exam: Pedal Edema (trace) Assessment and Plan - Assessment and Plan (Free Text) Assessment: 1) Urinary Retention Completed last dose of IV antibiotics. No baker inserted at this time. (2) Abdominal Distension Tube feeds restarted. Surgery on consult. PEG tube intact. (3) Failure to thrive Continue Tube feeds 60cc/hr (6 hours on with 2 hours of bowel rest), no residual. Pt water flushes increased to 200cc of free water via PEG in between feeds Measure weight weekly. (4) Anoxic encephalopathy Unchanged. Continue to monitor weekly labs, continue with q2h turning, therapy, feeds through PEG site and suctioning trach routinely Pending placement (5) Respiratory failure Continue trach care and suctioning as needed. Continue Primaxin 500mg IV q6h, started on 08/06/16. Trach culture grew gram negative rods on 07/16-ID, Dr. Walden s/p trach Monitor (6) CAD (coronary artery disease) Continue current management. s/p cardiac stents on 06/13/15 Continue ASA 81mg via PEG daily Carvedilol 3.125mg PO BID Continue Plavix 75mg via PEG daily (7) Seizures Stable at this time. Continue Keppra 500mg PEG BID for seizure prophylaxis Phenytoin d/c due to continued inc in LFT's on 07/21/16. (8) Bed sore Stage 3 sacral ulcer. Continue to turn patient q2hrs Monitor with skin checks (9) Prophylactic measure Pepcid 20 mg PEG BID Heparin 5000u SC q8h SCDs Boots in place <Colleen Braswell V - Last Filed: 08/15/16 18:42> Objective - Vital Signs/Intake and Output Vital Signs (last 24 hours): Temp Pulse Resp BP Pulse Ox 98.4 F 76 20 106/70 96 08/15/16 16:00 08/15/16 16:40 08/15/16 16:00 08/15/16 16:00 08/15/16 16:00 Intake and Output: 08/15/16 08/15/16 06:59 18:59 Intake Total 1360 680 Output Total 650 301 Balance 710 379 - Medications Medications: Current Medications Aspirin (Aspirin Chewable) 81 mg PEG DAILY [facility] Last Admin: 08/15/16 09:55 Dose: 81 mg Carvedilol (Coreg) 3.125 mg PO BID [facility] Last Admin: 08/15/16 09:56 Dose: 3.125 mg Clopidogrel Bisulfate (Plavix) 75 mg PEG DAILY [facility] Last Admin: 08/15/16 09:56 Dose: 75 mg Famotidine (Pepcid) 20 mg PEG BID [facility] Last Admin: 08/15/16 09:56 Dose: 20 mg Finasteride (Proscar) 5 mg PO DAILY [facility] Last Admin: 08/15/16 09:57 Dose: 5 mg Heparin Sodium (Porcine) (Heparin) 5,000 units SC Q12 [facility] Last Admin: 08/15/16 09:55 Dose: 5,000 units Levetiracetam (Keppra) 500 mg PEG BID [facility] Last Admin: 08/15/16 09:55 Dose: 500 mg Mupirocin (Bactroban Ointment) 0 gm TOP DAILY [facility] Last Admin: 08/15/16 09:57 Dose: 1 applic Polyethylene Glycol (Miralax) 17 gm PO QPM [facility] Last Admin: 07/22/16 17:46 Dose: 17 gm Tamsulosin HCl (Flomax) 0.4 mg PO DAILY [facility] Last Admin: 08/15/16 09:57 Dose: 0.4 mg - Labs Labs: 08/10/16 08:13 08/14/16 07:33 PT 10.6 SECONDS (9.7-12.2) 11/24/15 14:10 INR 1.0 11/24/15 14:10 APTT 25 SECONDS (21-34) 11/24/15 14:10 Attending/Attestation - Attestation I have personally seen and examined this patient.: Yes I have fully participated in the care of the patient.: Yes I have reviewed all pertinent clinical information, including history, physical exam and plan: Yes Notes (Text): Patient seen, examined, and case discussed with resident. Patient with prolonged hospital course due to inability to find intermodal customer service placement following anoxic encephalopathy s/p cardiac arrest Active problems: 1) Urinary retention -Completed Abx therapy yesterday, monitor WBC weekly and vital signs -Bladder scan showed 197 cc urine. 2) Abdominal distension -Peg site-working; no residual noted as per discussion with nursing staff -Patient is on continuous feeds as of 3 days ago; confirmed with nursing staff. 3) Sacral wound -healed
--- NOTE | 2016-08-16 00:38 | CP.PCM.PN ---
<JonnaCarolannkevin - Last Filed: 08/16/16 00:36> Subjective - Date & Time of Evaluation Date of Evaluation: 08/16/16 Time of Evaluation: 12:16 - Subjective Subjective: PGY 1 Medicine note: Dr Beth's service Pt seen and examined in no acute distress. Patient status remains unchanged. No fever or chills noted. Patient is minimally responsive to tactile stimuli and nonresponsive to verbal stimuli secondary to anoxic brain injury. Patient turned Q2H per nursing team to prevent bed sores. Patient currently laying on his side. Objective - Vital Signs/Intake and Output Vital Signs (last 24 hours): Temp Pulse Resp BP Pulse Ox 97.7 F 87 20 137/81 98 08/16/16 00:03 08/16/16 00:03 08/16/16 00:03 08/16/16 00:03 08/16/16 00:03 Intake and Output: 08/15/16 08/16/16 18:59 06:59 Intake Total 680 680 Output Total 301 400 Balance 379 280 - Medications Medications: Current Medications Aspirin (Aspirin Chewable) 81 mg PEG DAILY [facility] Last Admin: 08/15/16 09:55 Dose: 81 mg Carvedilol (Coreg) 3.125 mg PO BID [facility] Last Admin: 08/15/16 18:00 Dose: 3.125 mg Clopidogrel Bisulfate (Plavix) 75 mg PEG DAILY [facility] Last Admin: 08/15/16 09:56 Dose: 75 mg Famotidine (Pepcid) 20 mg PEG BID [facility] Last Admin: 08/15/16 18:00 Dose: 20 mg Finasteride (Proscar) 5 mg PO DAILY [facility] Last Admin: 08/15/16 09:57 Dose: 5 mg Heparin Sodium (Porcine) (Heparin) 5,000 units SC Q12 [facility] Last Admin: 08/15/16 21:53 Dose: 5,000 units Levetiracetam (Keppra) 500 mg PEG BID [facility] Last Admin: 08/15/16 18:00 Dose: 500 mg Mupirocin (Bactroban Ointment) 0 gm TOP DAILY [facility] Last Admin: 08/15/16 09:57 Dose: 1 applic Polyethylene Glycol (Miralax) 17 gm PO QPM [facility] Last Admin: 07/22/16 17:46 Dose: 17 gm Tamsulosin HCl (Flomax) 0.4 mg PO DAILY [facility] Last Admin: 08/15/16 09:57 Dose: 0.4 mg - Labs Labs: 08/10/16 08:13 08/14/16 07:33 PT 10.6 SECONDS (9.7-12.2) 11/24/15 14:10 INR 1.0 11/24/15 14:10 APTT 25 SECONDS (21-34) 11/24/15 14:10 - Constitutional Appears: No Acute Distress, Chronically Ill - Head Exam Head Exam: NORMAL INSPECTION, NORMOCEPHALIC - Eye Exam Eye Exam: Normal appearance, PERRL Pupil Exam: PERRL - ENT Exam ENT Exam: Mucous Membranes Moist - Neck Exam Additional comments: trach collar in plce with minimal secretions - Respiratory Exam Respiratory Exam: absent: Wheezes, Respiratory Distress - Cardiovascular Exam Cardiovascular Exam: +S1, +S2. absent: Murmur - GI/Abdominal Exam GI & Abdominal Exam: Soft, Normal Bowel Sounds Additional comments: PEG tube in place - Rectal Exam Rectal Exam: Deferred - Extremities Exam Extremities Exam: Normal Capillary Refill. absent: Tenderness Additional comments: boots in place on feet b/l to prevent ulceration - Neurological Exam Neurological Exam: Altered. absent: Awake - Psychiatric Exam Psychiatric exam: Flat Affect - Skin Skin Exam: Dry, Intact, Normal Color, Warm Assessment and Plan - Assessment and Plan (Free Text) Assessment: 1) Urinary Retention Completed last dose of IV antibiotics. No baker inserted at this time. Continue weekly labs Continue monitoring vitals (2) Abdominal Distension Tube feeds restarted. Surgery on consult. PEG tube intact and functioning Continue to monitor (3) Failure to thrive Continue Tube feeds 60cc/hr (6 hours on with 2 hours of bowel rest), no residual. Pt water flushes increased to 200cc of free water via PEG in between feeds Measure weight weekly. (4) Anoxic encephalopathy Unchanged. 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 Continue Primaxin 500mg IV q6h, started on 08/06/16. Trach culture grew gram negative rods on 07/16-ID, Dr. Walden s/p trach Monitor (6) CAD (coronary artery disease) Continue current management. s/p cardiac stents on 06/13/15 Continue ASA 81mg via PEG daily Carvedilol 3.125mg PO BID Continue Plavix 75mg via PEG daily (7) Seizures Stable at this time. Continue Keppra 500mg PEG BID for seizure prophylaxis Phenytoin d/c due to continued inc in LFT's on 07/21/16. (8) Sacral Ulcers Resolved Continue to turn patient q2hrs Monitor with skin checks (9) Prophylactic measure Pepcid 20 mg PEG BID Heparin 5000u SC q8h SCDs Boots in place <Nathaniel Beth - Last Filed: 08/17/16 08:21> Objective - Vital Signs/Intake and Output Vital Signs (last 24 hours): Temp Pulse Resp BP Pulse Ox 98.2 F 83 20 97/67 L 90 L 08/17/16 08:05 08/17/16 08:05 08/17/16 08:05 08/17/16 08:05 08/17/16 08:05 Intake and Output: 08/17/16 08/17/16 06:59 18:59 Intake Total 1160 Output Total 700 Balance 460 - Medications Medications: Current Medications Aspirin (Aspirin Chewable) 81 mg PEG DAILY [facility] Last Admin: 08/16/16 10:06 Dose: 81 mg Carvedilol (Coreg) 3.125 mg PO BID [facility] Last Admin: 08/16/16 17:49 Dose: 3.125 mg Clopidogrel Bisulfate (Plavix) 75 mg PEG DAILY [facility] Last Admin: 08/16/16 10:05 Dose: 75 mg Famotidine (Pepcid) 20 mg PEG BID [facility] Last Admin: 08/16/16 17:49 Dose: 20 mg Finasteride (Proscar) 5 mg PO DAILY [facility] Last Admin: 08/16/16 10:07 Dose: 5 mg Heparin Sodium (Porcine) (Heparin) 5,000 units SC Q12 [facility] Last Admin: 08/16/16 21:36 Dose: 5,000 units Levetiracetam (Keppra) 500 mg PEG BID [facility] Last Admin: 08/16/16 18:45 Dose: 500 mg Mupirocin (Bactroban Ointment) 0 gm TOP DAILY [facility] Last Admin: 08/16/16 10:09 Dose: 1 applic Polyethylene Glycol (Miralax) 17 gm PO QPM [facility] Last Admin: 07/22/16 17:46 Dose: 17 gm Tamsulosin HCl (Flomax) 0.4 mg PO DAILY [facility] Last Admin: 08/16/16 10:06 Dose: 0.4 mg - Labs Labs: 08/10/16 08:13 08/14/16 07:33 PT 10.6 SECONDS (9.7-12.2) 11/24/15 14:10 INR 1.0 11/24/15 14:10 APTT 25 SECONDS (21-34) 11/24/15 14:10 Attending/Attestation - Attestation I have personally seen and examined this patient.: Yes I have fully participated in the care of the patient.: Yes I have reviewed all pertinent clinical information, including history, physical exam and plan: Yes Notes (Text): Patient seen and examined; I agree with the resident's A/P as above with the following edits/additions: Patient admitted with cardiac arrest and ensuing enoxic encephalopathy, with prolonged hospital course due to inability to find 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
[2016-08-16] MEDS: levETIRAcetam 100 mg/ml (5ml) Oral Syringe PEG SCH ×2 (10:07→18:45)
--- NOTE | 2016-08-17 01:49 | CP.PCM.PN ---
<JonnaCarolannkevin - Last Filed: 08/17/16 01:46> Subjective - Date & Time of Evaluation Date of Evaluation: 08/17/16 Time of Evaluation: 00:46 - Subjective Subjective: PGY 1 Medicine note: Dr Beth's service Pt seen and examined in no acute distress. Patient status remains unchanged. No fever or chills noted. Patient is minimally responsive to tactile stimuli and nonresponsive to verbal stimuli secondary to anoxic brain injury. Patient's face is turned towards the TV monitor where [place] Wars Episode V is airing. Patient turned Q2H per nursing team to prevent bed sores. Patient currently laying supine. Objective - Vital Signs/Intake and Output Vital Signs (last 24 hours): Temp Pulse Resp BP Pulse Ox 9898 F H 76 20 108/70 99 08/16/16 23:55 08/16/16 23:55 08/16/16 23:55 08/16/16 23:55 08/16/16 23:55 Intake and Output: 08/16/16 08/17/16 18:59 06:59 Intake Total 680 480 Output Total 900 400 Balance -220 80 - Medications Medications: Current Medications Aspirin (Aspirin Chewable) 81 mg PEG DAILY [facility] Last Admin: 08/16/16 10:06 Dose: 81 mg Carvedilol (Coreg) 3.125 mg PO BID [facility] Last Admin: 08/16/16 17:49 Dose: 3.125 mg Clopidogrel Bisulfate (Plavix) 75 mg PEG DAILY [facility] Last Admin: 08/16/16 10:05 Dose: 75 mg Famotidine (Pepcid) 20 mg PEG BID [facility] Last Admin: 08/16/16 17:49 Dose: 20 mg Finasteride (Proscar) 5 mg PO DAILY [facility] Last Admin: 08/16/16 10:07 Dose: 5 mg Heparin Sodium (Porcine) (Heparin) 5,000 units SC Q12 [facility] Last Admin: 08/16/16 21:36 Dose: 5,000 units Levetiracetam (Keppra) 500 mg PEG BID [facility] Last Admin: 08/16/16 18:45 Dose: 500 mg Mupirocin (Bactroban Ointment) 0 gm TOP DAILY [facility] Last Admin: 08/16/16 10:09 Dose: 1 applic Polyethylene Glycol (Miralax) 17 gm PO QPM [facility] Last Admin: 07/22/16 17:46 Dose: 17 gm Tamsulosin HCl (Flomax) 0.4 mg PO DAILY [facility] Last Admin: 08/16/16 10:06 Dose: 0.4 mg - Labs Labs: 08/10/16 08:13 08/14/16 07:33 PT 10.6 SECONDS (9.7-12.2) 11/24/15 14:10 INR 1.0 11/24/15 14:10 APTT 25 SECONDS (21-34) 11/24/15 14:10 - Constitutional Appears: No Acute Distress, Chronically Ill - Head Exam Head Exam: NORMAL INSPECTION, NORMOCEPHALIC - Eye Exam Eye Exam: Normal appearance, PERRL Pupil Exam: PERRL - ENT Exam ENT Exam: Mucous Membranes Moist - Neck Exam Additional comments: trach collar in place with minimal secretions - Respiratory Exam Respiratory Exam: absent: Wheezes, Respiratory Distress - Cardiovascular Exam Cardiovascular Exam: +S1, +S2. absent: Murmur - GI/Abdominal Exam GI & Abdominal Exam: Soft, Normal Bowel Sounds. absent: Guarding, Rigid, Tenderness Additional comments: PEG tube in place - Rectal Exam Rectal Exam: Deferred - Extremities Exam Extremities Exam: Normal Capillary Refill. absent: Full ROM Additional comments: boots in place on feet b/l to prevent ulceration - Neurological Exam Neurological Exam: Altered. absent: Oriented x3 - Psychiatric Exam Psychiatric exam: Flat Affect - Skin Skin Exam: Dry, Intact, Normal Color, Warm Assessment and Plan - Assessment and Plan (Free Text) Assessment: 1) Urinary Retention Resolved Continue weekly labs Continue monitoring patient and vitals (2) Abdominal Distension Tube feeds restarted. PEG tube intact and functioning Continue to monitor (3) Failure to thrive Continue Tube feeds 60cc/hr (6 hours on with 2 hours of bowel rest), no residual. Pt water flushes increased to 200cc of free water via PEG in between feeds Measure weight weekly. (4) Anoxic encephalopathy Unchanged. 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 Continue Primaxin 500mg IV q6h, started on 08/06/16. Trach culture grew gram negative rods on 07/16-ID, Dr. Walden s/p trach Monitor (6) CAD (coronary artery disease) Continue current management. s/p cardiac stents on 06/13/15 Continue ASA 81mg via PEG daily Carvedilol 3.125mg PO BID Continue Plavix 75mg via PEG daily (7) Seizures Stable at this time. Continue Keppra 500mg PEG BID for seizure prophylaxis Phenytoin d/c due to continued inc in LFT's on 07/21/16. (8) Sacral Ulcers Resolved Continue to turn patient q2hrs Monitor with skin checks (9) Prophylactic measure Pepcid 20 mg PEG BID Heparin 5000u SC q8h SCDs Boots in place <Nathaniel Beth - Last Filed: 08/17/16 23:34> Objective - Vital Signs/Intake and Output Vital Signs (last 24 hours): Temp Pulse Resp BP Pulse Ox 98.6 F 72 20 114/74 100 08/17/16 15:00 08/17/16 15:00 08/17/16 15:00 08/17/16 15:00 08/17/16 15:00 Intake and Output: 08/17/16 08/18/16 18:59 06:59 Intake Total 730 Output Total 400 Balance 330 - Medications Medications: Current Medications Aspirin (Aspirin Chewable) 81 mg PEG DAILY [facility] Last Admin: 08/17/16 09:41 Dose: 81 mg Carvedilol (Coreg) 3.125 mg PO BID [facility] Last Admin: 08/17/16 18:04 Dose: 3.125 mg Clopidogrel Bisulfate (Plavix) 75 mg PEG DAILY [facility] Last Admin: 08/17/16 09:41 Dose: 75 mg Famotidine (Pepcid) 20 mg PEG BID [facility] Last Admin: 08/17/16 18:04 Dose: 20 mg Finasteride (Proscar) 5 mg PO DAILY [facility] Last Admin: 08/17/16 09:41 Dose: 5 mg Levetiracetam (Keppra) 500 mg PEG BID [facility] Last Admin: 08/17/16 18:04 Dose: 500 mg Mupirocin (Bactroban Ointment) 0 gm TOP DAILY [facility] Last Admin: 08/17/16 09:56 Dose: 1 applic Polyethylene Glycol (Miralax) 17 gm PO QPM [facility] Last Admin: 07/22/16 17:46 Dose: 17 gm Tamsulosin HCl (Flomax) 0.4 mg PO DAILY [facility] Last Admin: 08/17/16 09:40 Dose: 0.4 mg - Labs Labs: 08/17/16 08:37 08/17/16 08:37 PT 10.6 SECONDS (9.7-12.2) 11/24/15 14:10 INR 1.0 11/24/15 14:10 APTT 25 SECONDS (21-34) 11/24/15 14:10 Attending/Attestation - Attestation I have personally seen and examined this patient.: Yes I have fully participated in the care of the patient.: Yes I have reviewed all pertinent clinical information, including history, physical exam and plan: Yes Notes (Text): Patient seen and examined; I agree with the resident's A/P as above with the following edits/additions: Patient admitted s/p cardiac arrest with ensuing anoxic enscephalopathy; prolonged hospital course due to inability to find placement; Active issues: s/p UTI treatment, completed last week; Urinary retention; appears improved but have not been able to check post-void residual volumes adequately (ie. would have to check soon after patient urinates ); Hypernatremia; serum Na again mildly elevated; on tube feeds continuous at 60 cc /hr; not consistently getting free H20 flushes (250 cc q8h) as ordered due to order not readily appearing for nursing staff; discussed will nurse today and will start doing as ordered; BP stable on low dose coreg.
[2016-08-17 08:52] LABS: BASO % 0.4 % (0.0-2.0); EOS # 0.3 K/uL (0.0-0.7); EOS % 3.5 % (0.0-4.0); HEMOGLOBIN 13.2 g/dL (12.0-18.0); LYMPH # 2.2 K/uL (1.0-4.3); LYMPH % 22.5 % (20.0-40.0); MEAN CELL VOLUME 88.3 fL (80.0-94.0); MEAN CORPUSCULAR HEMOGLOBIN 29.8 pg (27.0-31.0); MEAN CORPUSCULAR HGB CONC 33.8 g/dL (33.0-37.0); MEAN PLATELET VOLUME 9.1 fL (7.2-11.7); MONO # 0.7 K/uL (0.0-0.8); MONO % 6.7 % (0.0-10.0); NEUT # 6.6 K/uL (1.8-7.0); NEUT % 66.9 % (50.0-75.0); RBC 4.42 Mil/uL (4.40-5.90); RED CELL DISTRIBUTION WIDTH 14.7 % (11.5-14.5); WHITE BLOOD COUNT 9.8 K/uL (4.8-10.8)
[2016-08-17 09:21] LABS: ALBUMIN 3.7 g/dL (3.5-5.0)
[2016-08-17 09:23] LABS: AST/SGOT 26 U/L (17-59); GFR NON-AFRICAN AMERICAN > 60
[2016-08-17 09:24] LABS: ALT/SGPT 42 U/L (21-72); BLOOD UREA NITROGEN 20 mg/dL (9-20); CALCIUM 8.9 mg/dl (8.6-10.4)
[2016-08-17 09:29] LABS: ALB/GLOB RATIO 0.8 (1.0-2.1)
[2016-08-17] MEDS: levETIRAcetam 100 mg/ml (5ml) Oral Syringe PEG SCH ×2 (09:42→18:04)
--- NOTE | 2016-08-18 08:37 | CP.PCM.PN ---
<AlysiashelleyMarcus vigil - Last Filed: 08/18/16 15:52> Subjective - Date & Time of Evaluation Date of Evaluation: 08/18/16 Time of Evaluation: 08:37 - Subjective Subjective: PGY1 Medicine Progress Note Dr. Ying's Service Pt seen and examined at bedside. Patient status remains unchanged. No fever or chills noted. Patient is minimally responsive to tactile stimuli and nonresponsive to verbal stimuli secondary to anoxic brain injury. Patient turned Q2H per nursing team to prevent bed sores. Patient currently laying supine. Objective - Vital Signs/Intake and Output Vital Signs (last 24 hours): Temp Pulse Resp BP Pulse Ox 97.5 F L 80 20 136/89 100 08/18/16 00:00 08/18/16 00:00 08/18/16 00:00 08/18/16 00:00 08/18/16 00:00 Intake and Output: 08/18/16 08/18/16 06:59 18:59 Intake Total 1460 Output Total 450 Balance 1010 - Medications Medications: Current Medications Aspirin (Aspirin Chewable) 81 mg PEG DAILY [facility] Last Admin: 08/17/16 09:41 Dose: 81 mg Carvedilol (Coreg) 3.125 mg PO BID [facility] Last Admin: 08/17/16 18:04 Dose: 3.125 mg Clopidogrel Bisulfate (Plavix) 75 mg PEG DAILY [facility] Last Admin: 08/17/16 09:41 Dose: 75 mg Famotidine (Pepcid) 20 mg PEG BID [facility] Last Admin: 08/17/16 18:04 Dose: 20 mg Finasteride (Proscar) 5 mg PO DAILY [facility] Last Admin: 08/17/16 09:41 Dose: 5 mg Levetiracetam (Keppra) 500 mg PEG BID [facility] Last Admin: 08/17/16 18:04 Dose: 500 mg Mupirocin (Bactroban Ointment) 0 gm TOP DAILY [facility] Last Admin: 08/17/16 09:56 Dose: 1 applic Polyethylene Glycol (Miralax) 17 gm PO QPM [facility] Last Admin: 07/22/16 17:46 Dose: 17 gm Tamsulosin HCl (Flomax) 0.4 mg PO DAILY [facility] Last Admin: 08/17/16 09:40 Dose: 0.4 mg - Labs Labs: 08/17/16 08:37 08/17/16 08:37 PT 10.6 SECONDS (9.7-12.2) 11/24/15 14:10 INR 1.0 11/24/15 14:10 APTT 25 SECONDS (21-34) 11/24/15 14:10 - Constitutional Appears: No Acute Distress, Chronically Ill - Head Exam Head Exam: ATRAUMATIC, NORMOCEPHALIC - Eye Exam Eye Exam: Normal appearance - Neck Exam Additional comments: trach collar in place with minimal secretions - Respiratory Exam Respiratory Exam: absent: Wheezes, Respiratory Distress Additional comments: trach collar - Cardiovascular Exam Cardiovascular Exam: RRR, +S1, +S2 - GI/Abdominal Exam GI & Abdominal Exam: Soft, Normal Bowel Sounds. absent: Distended, Firm, Guarding, Rigid, Rebound Additional comments: PEG tube in place - Extremities Exam Extremities Exam: Normal Capillary Refill Additional comments: boots in place on feet b/l to prevent ulceration - Neurological Exam Neurological Exam: Altered. absent: Oriented x3 - Psychiatric Exam Psychiatric exam: Flat Affect - Skin Skin Exam: Dry, Intact, Normal Color, Warm Assessment and Plan - Assessment and Plan (Free Text) Plan: 1) Urinary Retention I's & O's will consider removing Yoo and do voiding trial Continue weekly labs Continue monitoring patient and vitals (2) Abdominal Distension Tube feeds restarted. 60cc/hr continuously PEG tube intact and functioning Continue to monitor (3) Failure to thrive Continuous Tube feeds 60cc/hr. 200cc of free water flush q8H Measure weight weekly. (4) Anoxic encephalopathy Unchanged. Continue to monitor weekly labs, continue with q2h turning, therapy, feeds through PEG site and suctioning trach routinely Pending alf facility placement (5) Respiratory failure Continue trach care and suctioning as needed IV Primaxin completed s/p trach Monitor (6) CAD (coronary artery disease) Continue current management. s/p cardiac stents on 06/13/15 Continue ASA 81mg via PEG daily Carvedilol 3.125mg PO BID Continue Plavix 75mg via PEG daily (7) Seizures Stable at this time. Continue Keppra 500mg PEG BID for seizure prophylaxis Phenytoin d/c due to continued inc in LFT's on 07/21/16. (8) Sacral Ulcers Resolved Continue to turn patient q2hrs Monitor with skin checks (9) Prophylactic measure Pepcid 20 mg PEG BID Heparin 5000u SC q8h SCDs Boots in place <Donnell Ying - Last Filed: 08/18/16 17:52> Objective - Vital Signs/Intake and Output Vital Signs (last 24 hours): Temp Pulse Resp BP Pulse Ox 98.6 F 96 H 20 134/90 100 08/18/16 16:22 08/18/16 16:22 08/18/16 16:22 08/18/16 16:22 08/18/16 16:22 Intake and Output: 08/18/16 08/18/16 06:59 18:59 Intake Total 1460 300 Output Total 450 300 Balance 1010 0 - Medications Medications: Current Medications Aspirin (Aspirin Chewable) 81 mg PEG DAILY [facility] Last Admin: 08/18/16 11:05 Dose: 81 mg Carvedilol (Coreg) 3.125 mg PO BID [facility] Last Admin: 08/18/16 11:05 Dose: 3.125 mg Clopidogrel Bisulfate (Plavix) 75 mg PEG DAILY [facility] Last Admin: 08/18/16 11:05 Dose: 75 mg Famotidine (Pepcid) 20 mg PEG BID [facility] Last Admin: 08/18/16 11:05 Dose: 20 mg Finasteride (Proscar) 5 mg PO DAILY [facility] Last Admin: 08/18/16 11:05 Dose: 5 mg Levetiracetam (Keppra) 500 mg PEG BID [facility] Last Admin: 08/18/16 11:05 Dose: 500 mg Mupirocin (Bactroban Ointment) 0 gm TOP DAILY [facility] Last Admin: 08/18/16 11:06 Dose: 1 applic Polyethylene Glycol (Miralax) 17 gm PO QPM [facility] Last Admin: 07/22/16 17:46 Dose: 17 gm Tamsulosin HCl (Flomax) 0.4 mg PO DAILY [facility] Last Admin: 08/18/16 11:05 Dose: 0.4 mg - Labs Labs: 08/17/16 08:37 08/17/16 08:37 PT 10.6 SECONDS (9.7-12.2) 11/24/15 14:10 INR 1.0 11/24/15 14:10 APTT 25 SECONDS (21-34) 11/24/15 14:10 Attending/Attestation - Attestation I have personally seen and examined this patient.: Yes I have fully participated in the care of the patient.: Yes I have reviewed all pertinent clinical information, including history, physical exam and plan: Yes Notes (Text): 08/18/16 17:51 Patient was seen and examined at bedside with the resident Patient is off antibiotics We will consider discontinuation of Yoo's catheter Turn and position patient every 2 hours Local care of PEG and trach
[2016-08-18] MEDS: levETIRAcetam 100 mg/ml (5ml) Oral Syringe PEG SCH ×2 (11:05→18:29)
--- NOTE | 2016-08-19 07:14 | CP.PCM.PN ---
<Robert Yipy - Last Filed: 08/19/16 14:34> Subjective - Date & Time of Evaluation Date of Evaluation: 08/19/16 Time of Evaluation: 07:14 - Subjective Subjective: PGY1 Medicine Progress Note Dr. Ying's Service Pt seen and examined at bedside. Patient status remains unchanged. Patient is minimally responsive to tactile stimuli and nonresponsive to verbal stimuli secondary to anoxic brain injury. Patient resting comfortably with the TV on. Objective - Vital Signs/Intake and Output Vital Signs (last 24 hours): Temp Pulse Resp BP Pulse Ox 98.3 F 96 H 20 123/76 99 08/19/16 00:00 08/19/16 00:00 08/19/16 00:00 08/19/16 00:00 08/19/16 00:00 Intake and Output: 08/19/16 08/19/16 06:59 18:59 Intake Total 980 Output Total 350 Balance 630 - Medications Medications: Current Medications Aspirin (Aspirin Chewable) 81 mg PEG DAILY [facility] Last Admin: 08/18/16 11:05 Dose: 81 mg Carvedilol (Coreg) 3.125 mg PO BID [facility] Last Admin: 08/18/16 18:29 Dose: 3.125 mg Clopidogrel Bisulfate (Plavix) 75 mg PEG DAILY [facility] Last Admin: 08/18/16 11:05 Dose: 75 mg Famotidine (Pepcid) 20 mg PEG BID [facility] Last Admin: 08/18/16 18:30 Dose: 20 mg Finasteride (Proscar) 5 mg PO DAILY [facility] Last Admin: 08/18/16 11:05 Dose: 5 mg Levetiracetam (Keppra) 500 mg PEG BID [facility] Last Admin: 08/18/16 18:29 Dose: 500 mg Mupirocin (Bactroban Ointment) 0 gm TOP DAILY [facility] Last Admin: 08/18/16 11:06 Dose: 1 applic Polyethylene Glycol (Miralax) 17 gm PO QPM [facility] Last Admin: 07/22/16 17:46 Dose: 17 gm Tamsulosin HCl (Flomax) 0.4 mg PO DAILY [facility] Last Admin: 08/18/16 11:05 Dose: 0.4 mg - Labs Labs: 08/17/16 08:37 08/17/16 08:37 PT 10.6 SECONDS (9.7-12.2) 11/24/15 14:10 INR 1.0 11/24/15 14:10 APTT 25 SECONDS (21-34) 11/24/15 14:10 - Constitutional Appears: No Acute Distress, Chronically Ill - Head Exam Head Exam: ATRAUMATIC, NORMOCEPHALIC - Eye Exam Eye Exam: Normal appearance - ENT Exam ENT Exam: Mucous Membranes Moist - Neck Exam Additional comments: trach collar in place with minimal secretions - Respiratory Exam Respiratory Exam: absent: Wheezes, Respiratory Distress - Cardiovascular Exam Cardiovascular Exam: RRR, +S1, +S2 - GI/Abdominal Exam GI & Abdominal Exam: Soft, Normal Bowel Sounds. absent: Distended Additional comments: PEG tube in place - Extremities Exam Extremities Exam: Normal Capillary Refill Additional comments: boots in place on feet b/l to prevent ulceration - Neurological Exam Neurological Exam: Altered. absent: Oriented x3 - Psychiatric Exam Psychiatric exam: Flat Affect - Skin Skin Exam: Dry, Intact, Normal Color, Warm Assessment and Plan - Assessment and Plan (Free Text) Plan: 1) Urinary Retention 08/19: Continue Current management 08/18: I's & O's will consider removing Yoo and do voiding trial Continue weekly labs Continue monitoring patient and vitals (2) Abdominal Distension 08/19: Continue Current management 08/18: Tube feeds 60cc/hr continuously PEG tube intact and functioning Continue to monitor (3) Failure to thrive 08/19: Continue Current management 08/18: Continuous Tube feeds 60cc/hr. 250cc of free water flush q8H Measure weight weekly. (4) Anoxic encephalopathy 08/19: Continue Current management 08/18: Unchanged. 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 s/p cardiac stents on 06/13/15 Continue ASA 81mg via PEG daily Carvedilol 3.125mg PO BID Continue Plavix 75mg via PEG daily (7) Seizures 08/19: Continue Current management 08/18: Stable at this time. Continue Keppra 500mg PEG BID for seizure prophylaxis Phenytoin d/c due to continued inc in LFT's on 07/21/16. (8) Sacral Ulcers Resolved Continue to turn patient q2hrs Monitor with skin checks (9) Prophylactic measure Pepcid 20 mg PEG BID Heparin 5000u SC q8h SCDs Boots in place <Donnell Ying - Last Filed: 08/19/16 17:05> Objective - Vital Signs/Intake and Output Vital Signs (last 24 hours): Temp Pulse Resp BP Pulse Ox 98 F 89 18 103/71 100 08/19/16 08:04 08/19/16 08:04 08/19/16 08:04 08/19/16 08:04 08/19/16 08:04 Intake and Output: 08/19/16 08/19/16 06:59 18:59 Intake Total 980 680 Output Total 350 200 Balance 630 480 - Medications Medications: Current Medications Aspirin (Aspirin Chewable) 81 mg PEG DAILY [facility] Last Admin: 08/19/16 11:09 Dose: 81 mg Carvedilol (Coreg) 3.125 mg PO BID [facility] Last Admin: 08/19/16 11:10 Dose: 3.125 mg Clopidogrel Bisulfate (Plavix) 75 mg PEG DAILY [facility] Last Admin: 08/19/16 11:09 Dose: 75 mg Famotidine (Pepcid) 20 mg PEG BID [facility] Last Admin: 08/19/16 11:10 Dose: 20 mg Finasteride (Proscar) 5 mg PO DAILY [facility] Last Admin: 08/19/16 11:10 Dose: 5 mg Levetiracetam (Keppra) 500 mg PEG BID [facility] Last Admin: 08/19/16 11:09 Dose: 500 mg Mupirocin (Bactroban Ointment) 0 gm TOP DAILY [facility] Last Admin: 08/19/16 11:10 Dose: 1 applic Polyethylene Glycol (Miralax) 17 gm PO QPM [facility] Last Admin: 07/22/16 17:46 Dose: 17 gm Tamsulosin HCl (Flomax) 0.4 mg PO DAILY [facility] Last Admin: 08/19/16 11:10 Dose: 0.4 mg - Labs Labs: 08/17/16 08:37 08/17/16 08:37 PT 10.6 SECONDS (9.7-12.2) 11/24/15 14:10 INR 1.0 11/24/15 14:10 APTT 25 SECONDS (21-34) 11/24/15 14:10 Attending/Attestation - Attestation I have personally seen and examined this patient.: Yes I have fully participated in the care of the patient.: Yes I have reviewed all pertinent clinical information, including history, physical exam and plan: Yes Notes (Text): 08/19/16 17:04 Patient was seen and examined at bedside with the resident No acute events overnight Turn position every 2 hours Continue current management Discussed with the resident and agree with the above history and physical and assessment/plan with the resident
[2016-08-19] MEDS: levETIRAcetam 100 mg/ml (5ml) Oral Syringe PEG SCH ×2 (11:09→17:56)
--- NOTE | 2016-08-20 07:45 | CP.PCM.PN ---
<AlysiashelleyMarcus vigil - Last Filed: 08/20/16 16:31> Subjective - Date & Time of Evaluation Date of Evaluation: 08/20/16 Time of Evaluation: 07:45 - Subjective Subjective: PGY1 Medicine Progress Note Dr. Ying's Service Pt seen and examined at bedside. Patient status remains unchanged. Patient is minimally responsive to tactile stimuli and nonresponsive to verbal stimuli secondary to anoxic brain injury. Patient resting comfortably in bed with trach collar and PEG tube intact and functioning properly. Pt still has [place] catheter. Objective - Vital Signs/Intake and Output Vital Signs (last 24 hours): Temp Pulse Resp BP Pulse Ox 97.6 F 70 20 109/71 77 L 08/20/16 00:00 08/20/16 00:00 08/20/16 00:00 08/20/16 00:00 08/20/16 00:00 Intake and Output: 08/20/16 08/20/16 06:59 18:59 Intake Total 580 680 Output Total 240 500 Balance 340 180 - Medications Medications: Current Medications Aspirin (Aspirin Chewable) 81 mg PEG DAILY [facility] Last Admin: 08/19/16 11:09 Dose: 81 mg Carvedilol (Coreg) 3.125 mg PO BID [facility] Last Admin: 08/19/16 17:55 Dose: 3.125 mg Clopidogrel Bisulfate (Plavix) 75 mg PEG DAILY [facility] Last Admin: 08/19/16 11:09 Dose: 75 mg Famotidine (Pepcid) 20 mg PEG BID [facility] Last Admin: 08/19/16 17:56 Dose: 20 mg Finasteride (Proscar) 5 mg PO DAILY [facility] Last Admin: 08/19/16 11:10 Dose: 5 mg Levetiracetam (Keppra) 500 mg PEG BID [facility] Last Admin: 08/19/16 17:56 Dose: 500 mg Mupirocin (Bactroban Ointment) 0 gm TOP DAILY [facility] Last Admin: 08/19/16 11:10 Dose: 1 applic Polyethylene Glycol (Miralax) 17 gm PO QPM [facility] Last Admin: 07/22/16 17:46 Dose: 17 gm Tamsulosin HCl (Flomax) 0.4 mg PO DAILY [facility] Last Admin: 08/19/16 11:10 Dose: 0.4 mg - Labs Labs: 08/17/16 08:37 08/17/16 08:37 PT 10.6 SECONDS (9.7-12.2) 11/24/15 14:10 INR 1.0 11/24/15 14:10 APTT 25 SECONDS (21-34) 11/24/15 14:10 - Constitutional Appears: Non-toxic, No Acute Distress - Head Exam Head Exam: ATRAUMATIC, NORMOCEPHALIC - Eye Exam Eye Exam: Normal appearance - ENT Exam ENT Exam: Mucous Membranes Moist - Neck Exam Additional comments: trach collar in place with minimal secretions - Respiratory Exam Respiratory Exam: absent: Accessory Muscle Use, Wheezes, Respiratory Distress - Cardiovascular Exam Cardiovascular Exam: RRR, +S1, +S2 - GI/Abdominal Exam GI & Abdominal Exam: Soft, Tenderness, Normal Bowel Sounds. absent: Distended Additional comments: PEG tube in place - Extremities Exam Extremities Exam: Normal Capillary Refill Additional comments: heel boots in place for ulcer prevention - Back Exam Additional comments: Sacral area with small 1 mm abrasion. with monitor to prevent further progression - Neurological Exam Neurological Exam: Altered. absent: Oriented x3 - Psychiatric Exam Psychiatric exam: Flat Affect. absent: Normal Affect, Normal Mood - Skin Skin Exam: Dry, Intact, Normal Color, Warm Assessment and Plan - Assessment and Plan (Free Text) Plan: 1) Urinary Retention 08/20: Continue Current management 08/18: I's & O's will consider removing urinary catheter and do voiding trial Continue weekly labs Continue monitoring patient and vitals (2) Abdominal Distension 08/20: Continue Current management 08/18: Resolved. Tube feeds 60cc/hr continuously PEG tube intact and functioning Continue to monitor (3) Failure to thrive 08/20: Continue Current management 08/18: Continuous Tube feeds 60cc/hr. 250cc of free water flush q8H Measure weight weekly. (4) Anoxic encephalopathy 08/20: Continue Current management 08/18: Unchanged. Continue to monitor weekly labs, continue with q2h turning, therapy, feeds through PEG site and suctioning trach routinely Pending prison facility placement (5) Respiratory failure 08/20: Continue Current management 08/18: Continue trach care and suctioning as needed IV Primaxin completed s/p trach Monitor (6) CAD (coronary artery disease) 08/20: Continue Current management 08/18: Continue current management. s/p cardiac stents on 7/22/15 Continue ASA 81mg via PEG daily Carvedilol 3.125mg PO BID Continue Plavix 75mg via PEG daily (7) Seizures 08/20: Continue Current management 08/18: Stable at this time. Continue Keppra 500mg PEG BID for seizure prophylaxis Phenytoin d/c due to continued inc in LFT's on 07/21/16. (8) Sacral Ulcers 08/20: Small 1 mm abrasion in sacral area. Informed nursing and instructed them to turn him intermittently. Nursing to use barrier to prevent further progression of abrasion 08/19:Resolved Continue to turn patient q2hrs Monitor with skin checks (9) Prophylactic measure Pepcid 20 mg PEG BID Heparin 5000 units SQ q8h SCDs Heel Boots in place <Donnell Ying - Last Filed: 08/20/16 17:32> Objective - Vital Signs/Intake and Output Vital Signs (last 24 hours): Temp Pulse Resp BP Pulse Ox 98.6 F 85 20 118/79 100 08/20/16 16:24 08/20/16 16:24 08/20/16 16:24 08/20/16 16:24 08/20/16 16:24 Intake and Output: 08/20/16 08/20/16 06:59 18:59 Intake Total 580 1260 Output Total 240 950 Balance 340 310 - Medications Medications: Current Medications Aspirin (Aspirin Chewable) 81 mg PEG DAILY [facility] Last Admin: 08/20/16 11:21 Dose: 81 mg Clopidogrel Bisulfate (Plavix) 75 mg PEG DAILY [facility] Last Admin: 08/20/16 11:22 Dose: 75 mg Famotidine (Pepcid) 20 mg PEG BID [facility] Last Admin: 08/20/16 11:21 Dose: 20 mg Finasteride (Proscar) 5 mg PO DAILY [facility] Last Admin: 08/20/16 11:22 Dose: 5 mg Polyethylene Glycol (Miralax) 17 gm PO QPM [facility] Last Admin: 07/22/16 17:46 Dose: 17 gm Tamsulosin HCl (Flomax) 0.4 mg PO DAILY [facility] Last Admin: 08/20/16 11:21 Dose: 0.4 mg - Labs Labs: 08/17/16 08:37 08/17/16 08:37 PT 10.6 SECONDS (9.7-12.2) 11/24/15 14:10 INR 1.0 11/24/15 14:10 APTT 25 SECONDS (21-34) 11/24/15 14:10 Attending/Attestation - Attestation I have personally seen and examined this patient.: Yes I have fully participated in the care of the patient.: Yes I have reviewed all pertinent clinical information, including history, physical exam and plan: Yes Notes (Text): 08/20/16 17:32 Patient was seen and examined at bedside with the resident In the current management No change in clinical condition I agree with the above H&P and assessment/plan by the resident
[2016-08-20] MEDS: levETIRAcetam 100 mg/ml (5ml) Oral Syringe PEG SCH (11:21)
--- NOTE | 2016-08-21 07:21 | CP.PCM.PN ---
<Marcus Yip - Last Filed: 08/21/16 11:26> Subjective - Date & Time of Evaluation Date of Evaluation: 08/21/16 Time of Evaluation: 07:21 - Subjective Subjective: PGY1 Medicine Progress Note Dr. Ying's Service Pt seen and examined at bedside. Patient status remains unchanged. Patient is minimally responsive to tactile stimuli and nonresponsive to verbal stimuli secondary to anoxic brain injury. Patient resting comfortably in bed with trach collar and PEG tube intact and functioning properly. Pt still has [place] catheter, 0 cc of output in bag. Objective - Vital Signs/Intake and Output Vital Signs (last 24 hours): Temp Pulse Resp BP Pulse Ox 97.9 F 74 20 107/70 100 08/21/16 00:38 08/21/16 00:38 08/21/16 00:38 08/21/16 00:38 08/21/16 00:38 Intake and Output: 08/21/16 08/21/16 06:59 18:59 Intake Total 680 Output Total 200 Balance 480 - Medications Medications: Current Medications Aspirin (Aspirin Chewable) 81 mg PEG DAILY [facility] Last Admin: 08/20/16 11:21 Dose: 81 mg Carvedilol (Coreg) 3.125 mg PEG BID [facility] Last Admin: 08/20/16 21:48 Dose: 3.125 mg Clopidogrel Bisulfate (Plavix) 75 mg PEG DAILY [facility] Last Admin: 08/20/16 11:22 Dose: 75 mg Famotidine (Pepcid) 20 mg PEG BID [facility] Last Admin: 08/20/16 18:15 Dose: 20 mg Finasteride (Proscar) 5 mg PO DAILY [facility] Last Admin: 08/20/16 11:22 Dose: 5 mg Levetiracetam (Keppra) 500 mg PO BID [facility] Last Admin: 08/20/16 21:48 Dose: 500 mg Polyethylene Glycol (Miralax) 17 gm PO QPM [facility] Last Admin: 07/22/16 17:46 Dose: 17 gm Tamsulosin HCl (Flomax) 0.4 mg PO DAILY [facility] Last Admin: 08/20/16 11:21 Dose: 0.4 mg - Labs Labs: 08/17/16 08:37 08/17/16 08:37 PT 10.6 SECONDS (9.7-12.2) 11/24/15 14:10 INR 1.0 11/24/15 14:10 APTT 25 SECONDS (21-34) 11/24/15 14:10 - Constitutional Appears: Non-toxic, No Acute Distress - Head Exam Head Exam: ATRAUMATIC, NORMOCEPHALIC - Eye Exam Eye Exam: Normal appearance - ENT Exam ENT Exam: Mucous Membranes Moist - Neck Exam Additional comments: trach collar in place with minimal secretions - Respiratory Exam Respiratory Exam: absent: Accessory Muscle Use, Wheezes, Respiratory Distress - Cardiovascular Exam Cardiovascular Exam: RRR, +S1, +S2 - GI/Abdominal Exam GI & Abdominal Exam: Soft, Normal Bowel Sounds. absent: Distended, Firm, Guarding, Rigid, Rebound Additional comments: PEG tube in place, site clean and dry - Extremities Exam Extremities Exam: Normal Capillary Refill Additional comments: heel boots in place for ulcer prevention - Back Exam Additional comments: Sacral area with small 1 mm abrasion - Neurological Exam Neurological Exam: Altered. absent: Oriented x3 - Psychiatric Exam Psychiatric exam: Flat Affect - Skin Skin Exam: Dry, Intact, Normal Color, Warm Assessment and Plan - Assessment and Plan (Free Text) Plan: 1) Urinary Retention 08/21: Continue Current management 08/18: I's & O's will consider removing urinary catheter and do voiding trial Continue weekly labs Continue monitoring patient and vitals (2) Abdominal Distension 08/21: Continue Current management 08/18: Resolved. Tube feeds 60cc/hr continuously PEG tube intact and functioning Continue to monitor (3) Failure to thrive 08/21: Continue Current management 08/18: Continuous Tube feeds 60cc/hr. 250cc of free water flush q8H Measure weight weekly. (4) Anoxic encephalopathy 08/21: Continue Current management 08/18: Unchanged. 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 s/p cardiac stents on 06/13/15 Continue ASA 81mg via PEG daily Carvedilol 3.125mg PO BID Continue Plavix 75mg via PEG daily (7) Seizures 08/21: Continue Current management 08/18: Stable at this time. Continue Keppra 500mg PEG BID for seizure prophylaxis Phenytoin d/c due to continued inc in LFT's on 07/21/16. (8) Sacral Ulcers 08/21: Continue Current management 08/20: Small 1 mm abrasion in sacral area. Informed nursing and instructed them to turn him intermittently. Nursing to use barrier to prevent further progression of abrasion 08/19:Resolved Continue to turn patient q2hrs Monitor with skin checks (9) Prophylactic measure Pepcid 20 mg PEG BID Heparin 5000 units SQ q8h SCDs Heel Boots in place <Donnell Ying - Last Filed: 08/21/16 15:01> Objective - Vital Signs/Intake and Output Vital Signs (last 24 hours): Temp Pulse Resp BP Pulse Ox 98 F 74 18 110/75 100 08/21/16 07:00 08/21/16 07:00 08/21/16 07:00 08/21/16 07:00 08/21/16 07:00 Intake and Output: 08/21/16 08/21/16 06:59 18:59 Intake Total 680 920 Output Total 200 200 Balance 480 720 - Medications Medications: Current Medications Aspirin (Aspirin Chewable) 81 mg PEG DAILY [facility] Last Admin: 08/21/16 11:11 Dose: 81 mg Carvedilol (Coreg) 3.125 mg PEG BID [facility] Last Admin: 08/21/16 11:11 Dose: 3.125 mg Clopidogrel Bisulfate (Plavix) 75 mg PEG DAILY [facility] Last Admin: 08/21/16 11:11 Dose: 75 mg Famotidine (Pepcid) 20 mg PEG BID [facility] Last Admin: 08/21/16 11:11 Dose: 20 mg Finasteride (Proscar) 5 mg PO DAILY [facility] Last Admin: 08/21/16 11:11 Dose: 5 mg Levetiracetam (Keppra) 500 mg PO BID [facility] Last Admin: 08/21/16 11:11 Dose: 500 mg Polyethylene Glycol (Miralax) 17 gm PO QPM [facility] Last Admin: 07/22/16 17:46 Dose: 17 gm Tamsulosin HCl (Flomax) 0.4 mg PO DAILY [facility] Last Admin: 08/21/16 11:11 Dose: 0.4 mg - Labs Labs: 08/17/16 08:37 08/17/16 08:37 PT 10.6 SECONDS (9.7-12.2) 11/24/15 14:10 INR 1.0 11/24/15 14:10 APTT 25 SECONDS (21-34) 11/24/15 14:10 Attending/Attestation - Attestation I have personally seen and examined this patient.: Yes I have fully participated in the care of the patient.: Yes I have reviewed all pertinent clinical information, including history, physical exam and plan: Yes Notes (Text): 08/21/16 15:01 Patient was seen and examined at bedside No change in clinical condition Continue current management Turn and position every 2 hours Discussed the plan of care with the resident
--- NOTE | 2016-08-22 07:47 | CP.PCM.PN ---
<TheodoraMarcus - Last Filed: 08/22/16 10:20> Subjective - Date & Time of Evaluation Date of Evaluation: 08/22/16 Time of Evaluation: 07:46 - Subjective Subjective: PGY1 Medicine Progress Note Dr. Ying's Service Pt seen and examined at bedside. No acute event overnight. Patient status remains unchanged. Patient is minimally responsive to tactile stimuli and nonresponsive to verbal stimuli secondary to anoxic brain injury. Patient resting comfortably in bed with TV on [employer]. Trach collar and PEG tube intact and functioning properly. [place] catheter in place. Objective - Vital Signs/Intake and Output Vital Signs (last 24 hours): Temp Pulse Resp BP Pulse Ox 98 F 89 16 129/76 98 08/22/16 00:00 08/22/16 00:00 08/22/16 00:00 08/22/16 00:00 08/22/16 00:00 Intake and Output: 08/22/16 08/22/16 06:59 18:59 Intake Total 750 Output Total 250 Balance 500 - Medications Medications: Current Medications Aspirin (Aspirin Chewable) 81 mg PEG DAILY [facility] Last Admin: 08/21/16 11:11 Dose: 81 mg Carvedilol (Coreg) 3.125 mg PEG BID [facility] Last Admin: 08/21/16 17:34 Dose: 3.125 mg Clopidogrel Bisulfate (Plavix) 75 mg PEG DAILY [facility] Last Admin: 08/21/16 11:11 Dose: 75 mg Famotidine (Pepcid) 20 mg PEG BID [facility] Last Admin: 08/21/16 17:34 Dose: 20 mg Finasteride (Proscar) 5 mg PO DAILY [facility] Last Admin: 08/21/16 11:11 Dose: 5 mg Levetiracetam (Keppra) 500 mg PO BID [facility] Last Admin: 08/21/16 17:33 Dose: 500 mg Polyethylene Glycol (Miralax) 17 gm PO QPM [facility] Last Admin: 07/22/16 17:46 Dose: 17 gm Tamsulosin HCl (Flomax) 0.4 mg PO DAILY [facility] Last Admin: 08/21/16 11:11 Dose: 0.4 mg - Labs Labs: 08/17/16 08:37 08/17/16 08:37 PT 10.6 SECONDS (9.7-12.2) 11/24/15 14:10 INR 1.0 11/24/15 14:10 APTT 25 SECONDS (21-34) 11/24/15 14:10 - Constitutional Appears: Non-toxic, No Acute Distress - Head Exam Head Exam: ATRAUMATIC, NORMOCEPHALIC - Eye Exam Eye Exam: Normal appearance - ENT Exam ENT Exam: Mucous Membranes Moist - Neck Exam Additional comments: trach collar in place with minimal secretions - Respiratory Exam Respiratory Exam: Clear to Ausculation Bilateral, NORMAL BREATHING PATTERN - Cardiovascular Exam Cardiovascular Exam: REGULAR RHYTHM, +S1, +S2 - GI/Abdominal Exam GI & Abdominal Exam: Soft, Normal Bowel Sounds. absent: Distended Additional comments: PEG tube in place, site clean and dry - Extremities Exam Extremities Exam: Normal Capillary Refill Additional comments: heel boots in place for ulcer prevention - Back Exam Additional comments: Sacral area with small 10 mm abrasion - Neurological Exam Neurological Exam: Altered. absent: Oriented x3 - Psychiatric Exam Psychiatric exam: Flat Affect - Skin Skin Exam: Dry, Intact, Normal Color, Warm Additional comments: 10 mm abrasion in sacral area Assessment and Plan - Assessment and Plan (Free Text) Plan: 1) Urinary Retention 08/22: Continue Current management 08/18: I's & O's will consider removing urinary catheter and do voiding trial Continue weekly labs Continue monitoring patient and vitals (2) Abdominal Distension 08/18: Resolved. Tube feeds 60cc/hr continuously PEG tube intact and functioning Continue to monitor (3) Failure to thrive 08/22: Continue Current management 08/18: Continuous Tube feeds 60cc/hr. 250cc of free water flush q8H Measure weight weekly. (4) Anoxic encephalopathy 08/22: Continue Current management 08/18: Unchanged. 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 s/p cardiac stents on 06/13/15 Continue ASA 81mg via PEG daily Carvedilol 3.125mg PO BID Continue Plavix 75mg via PEG daily (7) Seizures 08/22: Continue Current management 08/18: Stable at this time. Continue Keppra 500mg PEG BID for seizure prophylaxis Phenytoin d/c due to continued inc in LFT's on 07/21/16. (8) Sacral Ulcers 08/22: Abrasion is now ~ 10 mm, turning the pt Q2H was stressed to nursing staff to prevent ulceration 08/20: Small 1 mm abrasion in sacral area. Informed nursing and instructed them to turn him intermittently. Nursing to use barrier to prevent further progression of abrasion 08/19:Resolved Continue to turn patient q2hrs Monitor with skin checks (9) Prophylactic measure Pepcid 20 mg PEG BID Heparin 5000 units SQ q8h SCDs Heel Boots in place <Donnell Ying M - Last Filed: 08/22/16 15:31> Objective - Vital Signs/Intake and Output Vital Signs (last 24 hours): Temp Pulse Resp BP Pulse Ox 98.3 F 82 20 115/69 96 08/22/16 07:00 08/22/16 07:00 08/22/16 07:00 08/22/16 07:00 08/22/16 07:00 Intake and Output: 08/22/16 08/22/16 06:59 18:59 Intake Total 750 980 Output Total 250 200 Balance 500 780 - Medications Medications: Current Medications Aspirin (Aspirin Chewable) 81 mg PEG DAILY [facility] Last Admin: 08/22/16 10:43 Dose: 81 mg Carvedilol (Coreg) 3.125 mg PEG BID [facility] Last Admin: 08/22/16 10:43 Dose: 3.125 mg Clopidogrel Bisulfate (Plavix) 75 mg PEG DAILY [facility] Last Admin: 08/22/16 10:43 Dose: 75 mg Famotidine (Pepcid) 20 mg PEG BID [facility] Last Admin: 08/22/16 10:43 Dose: 20 mg Finasteride (Proscar) 5 mg PO DAILY [facility] Last Admin: 08/22/16 10:43 Dose: 5 mg Levetiracetam (Keppra) 500 mg PO BID [facility] Last Admin: 08/22/16 10:43 Dose: 500 mg Polyethylene Glycol (Miralax) 17 gm PO QPM [facility] Last Admin: 07/22/16 17:46 Dose: 17 gm Tamsulosin HCl (Flomax) 0.4 mg PO DAILY [facility] Last Admin: 08/22/16 10:43 Dose: 0.4 mg - Labs Labs: 08/17/16 08:37 08/17/16 08:37 PT 10.6 SECONDS (9.7-12.2) 11/24/15 14:10 INR 1.0 11/24/15 14:10 APTT 25 SECONDS (21-34) 11/24/15 14:10 Attending/Attestation - Attestation I have personally seen and examined this patient.: Yes I have fully participated in the care of the patient.: Yes I have reviewed all pertinent clinical information, including history, physical exam and plan: Yes Notes (Text): 08/22/16 15:26 Patient was seen and examined at bedside Continue current management No change in clinical condition Patient is tolerating PEG feeding Continue to turn and position every 2 hours Discussed the plan of care with the resident
--- NOTE | 2016-08-23 00:01 | CP.PCM.PN ---
<Ivania Bernal - Last Filed: 08/23/16 00:02> Subjective - Date & Time of Evaluation Date of Evaluation: 08/23/16 Time of Evaluation: 00:05 - Subjective Subjective: Medicine Progress Note Dr. Ying's Service: Patient seen and examined at bedside. No acute event overnight. Patient status remains unchanged. Patient is responsive to painful stimuli and nonresponsive to verbal stimuli. Patient resting comfortably in bed with TV on [employer]. Trach collar and PEG tube intact and functioning properly. [place] catheter in place. Objective - Vital Signs/Intake and Output Vital Signs (last 24 hours): Temp Pulse Resp BP Pulse Ox 98.8 F 90 20 138/85 97 08/22/16 16:06 08/22/16 16:06 08/22/16 16:06 08/22/16 16:06 08/22/16 16:06 Intake and Output: 08/22/16 08/23/16 18:59 06:59 Intake Total 980 750 Output Total 200 325 Balance 780 425 - Medications Medications: Current Medications Aspirin (Aspirin Chewable) 81 mg PEG DAILY [facility] Last Admin: 08/22/16 10:43 Dose: 81 mg Carvedilol (Coreg) 3.125 mg PEG BID [facility] Last Admin: 08/22/16 17:34 Dose: 3.125 mg Clopidogrel Bisulfate (Plavix) 75 mg PEG DAILY [facility] Last Admin: 08/22/16 10:43 Dose: 75 mg Famotidine (Pepcid) 20 mg PEG BID [facility] Last Admin: 08/22/16 17:33 Dose: 20 mg Finasteride (Proscar) 5 mg PO DAILY [facility] Last Admin: 08/22/16 10:43 Dose: 5 mg Levetiracetam (Keppra) 500 mg PO BID [facility] Last Admin: 08/22/16 17:33 Dose: 500 mg Polyethylene Glycol (Miralax) 17 gm PO QPM [facility] Last Admin: 07/22/16 17:46 Dose: 17 gm Tamsulosin HCl (Flomax) 0.4 mg PO DAILY [facility] Last Admin: 08/22/16 10:43 Dose: 0.4 mg - Labs Labs: 08/17/16 08:37 08/17/16 08:37 PT 10.6 SECONDS (9.7-12.2) 11/24/15 14:10 INR 1.0 11/24/15 14:10 APTT 25 SECONDS (21-34) 11/24/15 14:10 - Constitutional Appears: Non-toxic, No Acute Distress - Head Exam Head Exam: ATRAUMATIC - Eye Exam Eye Exam: EOMI - ENT Exam ENT Exam: Mucous Membranes Moist - Respiratory Exam Respiratory Exam: Clear to Ausculation Bilateral, NORMAL BREATHING PATTERN. absent: Rhonchi, Wheezes, Respiratory Distress Additional comments: trach collar in place with minimal secretions - Cardiovascular Exam Cardiovascular Exam: REGULAR RHYTHM, +S1, +S2 - GI/Abdominal Exam GI & Abdominal Exam: Soft, Normal Bowel Sounds. absent: Distended, Firm, Tenderness Additional comments: PEG tube in place, site clean and dry - Extremities Exam Extremities Exam: Normal Inspection Additional comments: heel boots in place for ulcer prevention - Back Exam Additional comments: Sacral area with small 10 mm abrasion - Neurological Exam Neurological Exam: Awake. absent: Alert, Oriented x3 - Psychiatric Exam Psychiatric exam: Normal Affect, Normal Mood - Skin Skin Exam: Dry, Normal Color, Warm Additional comments: 10 mm abrasion in sacral area Assessment and Plan - Assessment and Plan (Free Text) Assessment: 1) Urinary Retention Resolved - Condom cath in place consider 08/23: Continue Current management 08/18: I's & O's will consider removing urinary catheter and do voiding trial Continue weekly labs Continue monitoring patient and vitals (2) Abdominal Distension 08/18: Resolved. Tube feeds 60cc/hr continuously PEG tube intact and functioning Continue to monitor (3) Failure to thrive 08/23: Continue Current management 08/18: Continuous Tube feeds 60cc/hr. 250cc of free water flush q8H Measure weight weekly. (4) Anoxic encephalopathy 08/23: Continue Current management 08/18: Unchanged. 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 s/p cardiac stents on 06/13/15 Continue ASA 81mg via PEG daily Carvedilol 3.125mg PO BID Continue Plavix 75mg via PEG daily (7) Seizures 08/23: Continue Current management 08/18: Stable at this time. Continue Keppra 500mg PEG BID for seizure prophylaxis Phenytoin d/c due to continued inc in LFT's on 07/21/16. (8) Sacral Ulcers 08/23: Abrasion is now ~ 10 mm, turning the pt Q2H was stressed to nursing staff to prevent ulceration 08/20: Small 1 mm abrasion in sacral area. Informed nursing and instructed them to turn him intermittently. Nursing to use barrier to prevent further progression of abrasion 08/19:Resolved Continue to turn patient q2hrs Monitor with skin checks (9) Prophylactic measure Pepcid 20 mg PEG BID Heparin 5000 units SQ q8h SCDs Heel Boots in place <Donnell Ying - Last Filed: 08/23/16 13:58> Objective - Vital Signs/Intake and Output Vital Signs (last 24 hours): Temp Pulse Resp BP Pulse Ox 97.9 F 82 20 116/77 97 08/23/16 08:13 08/23/16 08:13 08/23/16 08:13 08/23/16 08:13 08/23/16 08:13 Intake and Output: 08/23/16 08/23/16 06:59 18:59 Intake Total 1480 Output Total 625 Balance 855 - Medications Medications: Current Medications Aspirin (Aspirin Chewable) 81 mg PEG DAILY [facility] Last Admin: 08/23/16 10:39 Dose: 81 mg Carvedilol (Coreg) 3.125 mg PEG BID [facility] Last Admin: 08/23/16 10:39 Dose: 3.125 mg Clopidogrel Bisulfate (Plavix) 75 mg PEG DAILY [facility] Last Admin: 08/23/16 10:39 Dose: 75 mg Famotidine (Pepcid) 20 mg PEG BID [facility] Last Admin: 08/23/16 10:39 Dose: 20 mg Finasteride (Proscar) 5 mg PO DAILY [facility] Last Admin: 08/23/16 10:39 Dose: 5 mg Levetiracetam (Keppra) 500 mg PO BID [facility] Last Admin: 08/23/16 10:39 Dose: 500 mg Polyethylene Glycol (Miralax) 17 gm PO QPM [facility] Last Admin: 07/22/16 17:46 Dose: 17 gm Tamsulosin HCl (Flomax) 0.4 mg PO DAILY [facility] Last Admin: 08/23/16 10:39 Dose: 0.4 mg - Labs Labs: 08/17/16 08:37 08/17/16 08:37 PT 10.6 SECONDS (9.7-12.2) 11/24/15 14:10 INR 1.0 11/24/15 14:10 APTT 25 SECONDS (21-34) 11/24/15 14:10 Attending/Attestation - Attestation I have personally seen and examined this patient.: Yes I have fully participated in the care of the patient.: Yes I have reviewed all pertinent clinical information, including history, physical exam and plan: Yes Notes (Text): 08/23/16 13:57 Patient was seen and examined at bedside No change in clinical condition Yoo's has been reinserted to prevent soiling of the skin We will maintain the Yoo's catheter and change it periodically I agree with the above history and physical and assessment/plan by the resident
--- NOTE | 2016-08-24 01:50 | CP.PCM.PN ---
<Ivania Bernal - Last Filed: 08/24/16 01:50> Subjective - Date & Time of Evaluation Date of Evaluation: 08/24/16 Time of Evaluation: 00:20 - Subjective Subjective: Medicine Progress Note Dr. Ying's Service: Patient seen and examined at bedside. Patient status remains unchanged. Patient is responsive to painful stimuli and nonresponsive to verbal stimuli. Patient resting comfortably in bed with TV on [employer]. Trach collar and PEG tube intact and functioning properly. Yoo cath placed. Objective - Vital Signs/Intake and Output Vital Signs (last 24 hours): Temp Pulse Resp BP Pulse Ox 97.5 F L 75 20 104/70 99 08/24/16 00:00 08/24/16 00:00 08/24/16 00:00 08/24/16 00:00 08/24/16 00:00 Intake and Output: 08/23/16 08/24/16 18:59 06:59 Intake Total 1790 Output Total 600 300 Balance 1190 -300 - Medications Medications: Current Medications Aspirin (Aspirin Chewable) 81 mg PEG DAILY [facility] Last Admin: 08/23/16 10:39 Dose: 81 mg Carvedilol (Coreg) 3.125 mg PEG BID [facility] Last Admin: 08/23/16 17:37 Dose: 3.125 mg Clopidogrel Bisulfate (Plavix) 75 mg PEG DAILY [facility] Last Admin: 08/23/16 10:39 Dose: 75 mg Famotidine (Pepcid) 20 mg PEG BID [facility] Last Admin: 08/23/16 17:37 Dose: 20 mg Finasteride (Proscar) 5 mg PO DAILY [facility] Last Admin: 08/23/16 10:39 Dose: 5 mg Levetiracetam (Keppra) 500 mg PO BID [facility] Last Admin: 08/23/16 17:37 Dose: 500 mg Polyethylene Glycol (Miralax) 17 gm PO QPM [facility] Last Admin: 07/22/16 17:46 Dose: 17 gm Tamsulosin HCl (Flomax) 0.4 mg PO DAILY [facility] Last Admin: 08/23/16 10:39 Dose: 0.4 mg - Labs Labs: 08/17/16 08:37 08/17/16 08:37 PT 10.6 SECONDS (9.7-12.2) 11/24/15 14:10 INR 1.0 11/24/15 14:10 APTT 25 SECONDS (21-34) 11/24/15 14:10 - Constitutional Appears: Non-toxic, No Acute Distress - Head Exam Head Exam: ATRAUMATIC, NORMAL INSPECTION - Eye Exam Eye Exam: EOMI - ENT Exam ENT Exam: Mucous Membranes Moist - Neck Exam Neck Exam: Normal Inspection Additional comments: trach collar in place with minimal secretions - Respiratory Exam Respiratory Exam: NORMAL BREATHING PATTERN. absent: Respiratory Distress Additional comments: tach/vent support - Cardiovascular Exam Cardiovascular Exam: REGULAR RHYTHM, +S1, +S2 - GI/Abdominal Exam GI & Abdominal Exam: Soft, Normal Bowel Sounds. absent: Tenderness Additional comments: PEG tube in place, site clean and dry - Extremities Exam Extremities Exam: Pedal Edema Additional comments: heel boots in place for ulcer prevention - Back Exam Additional comments: Sacral area with small 10 mm abrasion - Neurological Exam Neurological Exam: absent: Alert, Awake, Oriented x3 - Psychiatric Exam Psychiatric exam: absent: Normal Affect, Normal Mood - Skin Skin Exam: Dry, Normal Color, Warm Assessment and Plan - Assessment and Plan (Free Text) Assessment: (1) Anoxic encephalopathy 08/24: Continue Current management 08/18: Unchanged. 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 Tube feeds 60cc/hr continuously PEG tube intact and functioning Continue to monitor (4) Failure to thrive 08/24: Continue Current management 08/18: Continuous Tube feeds 60cc/hr. 250cc of free water flush q8H Measure weight weekly. (5) Respiratory failure 08/24:Continue Current management 08/18: Continue trach care and suctioning as needed IV Primaxin completed s/p trach Monitor (6) CAD (coronary artery disease) 08/24: Continue Current management 08/18: Continue current management. s/p cardiac stents on 06/13/15 Continue ASA 81mg via PEG daily Carvedilol 3.125mg PO BID Continue Plavix 75mg via PEG daily (7) Seizures 08/24: Continue Current management 08/18: Stable at this time. Continue Keppra 500mg PEG BID for seizure prophylaxis Phenytoin d/c due to continued inc in LFT's on 07/21/16. (8) Sacral Ulcers 08/24: Abrasion is now ~ 10 mm, turning the pt Q2H was stressed to nursing staff to prevent ulceration 08/20: Small 1 mm abrasion in sacral area. Informed nursing and instructed them to turn him intermittently. Nursing to use barrier to prevent further progression of abrasion 08/19:Resolved Continue to turn patient q2hrs Monitor with skin checks (9) Prophylactic measure Pepcid 20 mg PEG BID Heparin 5000 units SQ q8h SCDs Heel Boots in place <Donnell Ying - Last Filed: 08/24/16 13:15> Objective - Vital Signs/Intake and Output Vital Signs (last 24 hours): Temp Pulse Resp BP Pulse Ox 98.0 F 76 20 114/76 99 08/24/16 07:42 08/24/16 07:42 08/24/16 07:42 08/24/16 07:42 08/24/16 07:42 Intake and Output: 08/24/16 08/24/16 06:59 18:59 Intake Total 810 Output Total 700 Balance 110 - Medications Medications: Current Medications Aspirin (Aspirin Chewable) 81 mg PEG DAILY [facility] Last Admin: 08/24/16 10:37 Dose: 81 mg Carvedilol (Coreg) 3.125 mg PEG BID [facility] Last Admin: 08/24/16 10:38 Dose: Not Given Clopidogrel Bisulfate (Plavix) 75 mg PEG DAILY [facility] Last Admin: 08/24/16 10:38 Dose: 75 mg Famotidine (Pepcid) 20 mg PEG BID [facility] Last Admin: 08/24/16 10:38 Dose: 20 mg Finasteride (Proscar) 5 mg PO DAILY [facility] Last Admin: 08/24/16 10:38 Dose: 5 mg Levetiracetam (Keppra) 500 mg PO BID [facility] Last Admin: 08/24/16 10:38 Dose: 500 mg Polyethylene Glycol (Miralax) 17 gm PO QPM [facility] Last Admin: 07/22/16 17:46 Dose: 17 gm Tamsulosin HCl (Flomax) 0.4 mg PO DAILY [facility] Last Admin: 08/24/16 10:38 Dose: 0.4 mg - Labs Labs: 08/24/16 08:25 08/24/16 08:25 PT 10.6 SECONDS (9.7-12.2) 11/24/15 14:10 INR 1.0 11/24/15 14:10 APTT 25 SECONDS (21-34) 11/24/15 14:10 Attending/Attestation - Attestation I have personally seen and examined this patient.: Yes I have fully participated in the care of the patient.: Yes I have reviewed all pertinent clinical information, including history, physical exam and plan: Yes Notes (Text): 08/24/16 13:14 Patient was seen and examined at bedside No change in clinical condition Yoo's catheter was inserted yesterday for skin care We will continue to maintain the Yoo's catheter for now Antibiotics completed for UTI Plan of care discussed with the resident and agree with the above history and physical and assessment/plan but the resident
[2016-08-24 08:32] LABS: BASO % 0.3 % (0.0-2.0); EOS # 0.3 K/uL (0.0-0.7); EOS % 3.4 % (0.0-4.0); HEMOGLOBIN 11.9 g/dL (12.0-18.0); LYMPH # 1.5 K/uL (1.0-4.3); LYMPH % 15.1 % (20.0-40.0); MEAN CELL VOLUME 88.4 fL (80.0-94.0); MEAN PLATELET VOLUME 9.2 fL (7.2-11.7); MONO # 0.8 K/uL (0.0-0.8); MONO % 7.9 % (0.0-10.0); NEUT # 7.2 K/uL (1.8-7.0); NEUT % 73.3 % (50.0-75.0); RBC 3.95 Mil/uL (4.40-5.90); RED CELL DISTRIBUTION WIDTH 14.6 % (11.5-14.5); WHITE BLOOD COUNT 9.8 K/uL (4.8-10.8)
[2016-08-24 08:44] LABS: ALBUMIN 3.5 g/dL (3.5-5.0)
[2016-08-24 08:46] LABS: GFR NON-AFRICAN AMERICAN > 60
[2016-08-24 08:47] LABS: ALB/GLOB RATIO 0.8 (1.0-2.1); ALT/SGPT 42 U/L (21-72); AST/SGOT 23 U/L (17-59); BLOOD UREA NITROGEN 17 mg/dL (9-20)
[2016-08-24 08:48] LABS: CALCIUM 8.7 mg/dl (8.6-10.4)
[2016-08-25] MEDS: Enoxaparin 30 mg Syringe SC SCH (09:41)
--- NOTE | 2016-08-25 10:57 | CP.PCM.PN ---
<Marcus Yip - Last Filed: 08/25/16 14:51> Subjective - Date & Time of Evaluation Date of Evaluation: 08/25/16 Time of Evaluation: 07:15 - Subjective Subjective: PGY1 Medicine Progress Note Dr. Beth's Service: Patient seen and examined at bedside. Patient status remains unchanged. Patient is responsive to painful stimuli and nonresponsive to verbal stimuli. Patient resting comfortably in bed with TV on [employer]. Trach collar and PEG tube intact and functioning properly. Baker catheter was placed on Thursday, 1000 cc/24hrs. Objective - Vital Signs/Intake and Output Vital Signs (last 24 hours): Temp Pulse Resp BP Pulse Ox 98.1 F 89 18 105/69 98 08/25/16 08:21 08/25/16 08:21 08/25/16 08:21 08/25/16 08:21 08/25/16 08:21 Intake and Output: 08/25/16 08/25/16 06:59 18:59 Intake Total 1460 Output Total 800 Balance 660 - Medications Medications: Current Medications Aspirin (Aspirin Chewable) 81 mg PEG DAILY [facility] Last Admin: 08/25/16 09:41 Dose: 81 mg Carvedilol (Coreg) 3.125 mg PEG BID [facility] Last Admin: 08/25/16 09:41 Dose: 3.125 mg Clopidogrel Bisulfate (Plavix) 75 mg PEG DAILY [facility] Last Admin: 08/25/16 09:41 Dose: 75 mg Enoxaparin Sodium (Lovenox) 30 mg SC DAILY [facility] Last Admin: 08/25/16 09:41 Dose: 30 mg Famotidine (Pepcid) 20 mg PEG BID [facility] Last Admin: 08/25/16 09:41 Dose: 20 mg Finasteride (Proscar) 5 mg PO DAILY [facility] Last Admin: 08/25/16 09:41 Dose: 5 mg Levetiracetam (Keppra) 500 mg PO BID [facility] Last Admin: 08/25/16 09:41 Dose: 500 mg Polyethylene Glycol (Miralax) 17 gm PO QPM [facility] Last Admin: 07/22/16 17:46 Dose: 17 gm Tamsulosin HCl (Flomax) 0.4 mg PO DAILY [facility] Last Admin: 08/25/16 09:41 Dose: 0.4 mg - Labs Labs: 08/24/16 08:25 08/24/16 08:25 PT 10.6 SECONDS (9.7-12.2) 11/24/15 14:10 INR 1.0 11/24/15 14:10 APTT 25 SECONDS (21-34) 11/24/15 14:10 - Constitutional Appears: Non-toxic, No Acute Distress - Head Exam Head Exam: ATRAUMATIC, NORMOCEPHALIC - Eye Exam Eye Exam: Normal appearance - ENT Exam ENT Exam: Mucous Membranes Moist - Neck Exam Additional comments: trach collar in place with minimal secretions - Respiratory Exam Respiratory Exam: absent: Accessory Muscle Use, Respiratory Distress - Cardiovascular Exam Cardiovascular Exam: REGULAR RHYTHM, +S1, +S2 - GI/Abdominal Exam GI & Abdominal Exam: Soft, Normal Bowel Sounds. absent: Distended Additional comments: PEG tube in place, site clean and dry - Extremities Exam Extremities Exam: Normal Capillary Refill. absent: Pedal Edema Additional comments: heel boots in place for ulcer prevention - Back Exam Additional comments: Sacral area with 15 mm abrasion - Neurological Exam Neurological Exam: Altered. absent: Oriented x3 - Psychiatric Exam Psychiatric exam: Flat Affect - Skin Skin Exam: Dry, Intact, Normal Color, Warm Assessment and Plan - Assessment and Plan (Free Text) Plan: (1) Anoxic encephalopathy 08/25: Continue Current management 08/18: Unchanged. 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 Tube feeds 60cc/hr continuously PEG tube intact and functioning Continue to monitor (4) Failure to thrive 08/25: Continue Current management 08/18: Continuous Tube feeds 60cc/hr. 250cc of free water flush q8H Measure weight weekly. (5) Respiratory failure 08/25:Continue Current management 08/18: Continue trach care and suctioning as needed IV Primaxin completed s/p trach Monitor (6) CAD (coronary artery disease) 08/25: Continue Current management 08/18: Continue current management. s/p cardiac stents on 06/13/15 Continue ASA 81mg via PEG daily Carvedilol 3.125mg PO BID Continue Plavix 75mg via PEG daily (7) Seizures 08/25: Continue Current management 08/18: Stable at this time. Continue Keppra 500mg PEG BID for seizure prophylaxis Phenytoin d/c due to continued inc in LFT's on 07/21/16. (8) Sacral Ulcers 08/25: Abrasion now 15mm, will speak to wound care for recommendations, Again pt turning Q2H was stressed to nursing staff 08/24: Abrasion is now ~ 10 mm, turning the pt Q2H was stressed to nursing staff to prevent ulceration 08/20: Small 1 mm abrasion in sacral area. Informed nursing and instructed them to turn him intermittently. Nursing to use barrier to prevent further progression of abrasion 08/19:Resolved Continue to turn patient q2hrs Monitor with skin checks (9) Prophylactic measure Pepcid 20 mg PEG BID Heparin 5000 units SQ q8h SCDs Heel Boots in place <Nathaniel Beth - Last Filed: 08/25/16 17:12> Objective - Vital Signs/Intake and Output Vital Signs (last 24 hours): Temp Pulse Resp BP Pulse Ox 98.4 F 84 20 114/78 100 08/25/16 16:00 08/25/16 16:00 08/25/16 16:00 08/25/16 16:00 08/25/16 16:00 Intake and Output: 08/25/16 08/25/16 06:59 18:59 Intake Total 1460 730 Output Total 800 300 Balance 660 430 - Medications Medications: Current Medications Aspirin (Aspirin Chewable) 81 mg PEG DAILY [facility] Last Admin: 08/25/16 09:41 Dose: 81 mg Carvedilol (Coreg) 3.125 mg PEG BID [facility] Last Admin: 08/25/16 09:41 Dose: 3.125 mg Clopidogrel Bisulfate (Plavix) 75 mg PEG DAILY [facility] Last Admin: 08/25/16 09:41 Dose: 75 mg Enoxaparin Sodium (Lovenox) 30 mg SC DAILY [facility] Last Admin: 08/25/16 09:41 Dose: 30 mg Famotidine (Pepcid) 20 mg PEG BID [facility] Last Admin: 08/25/16 09:41 Dose: 20 mg Finasteride (Proscar) 5 mg PO DAILY [facility] Last Admin: 08/25/16 09:41 Dose: 5 mg Levetiracetam (Keppra) 500 mg PO BID [facility] Last Admin: 08/25/16 09:41 Dose: 500 mg Polyethylene Glycol (Miralax) 17 gm PO QPM [facility] Last Admin: 07/22/16 17:46 Dose: 17 gm Tamsulosin HCl (Flomax) 0.4 mg PO DAILY [facility] Last Admin: 08/25/16 09:41 Dose: 0.4 mg - Labs Labs: 08/24/16 08:25 08/24/16 08:25 PT 10.6 SECONDS (9.7-12.2) 11/24/15 14:10 INR 1.0 11/24/15 14:10 APTT 25 SECONDS (21-34) 11/24/15 14:10 Attending/Attestation - Attestation I have personally seen and examined this patient.: Yes I have fully participated in the care of the patient.: Yes I have reviewed all pertinent clinical information, including history, physical exam and plan: Yes Notes (Text): Patient seen and examined; I agree with the resident's assessment/plan as above with the following edits/additions: Patient admitted s/p cardiac arrest, ensuing anoxic encephalopathy; prolonged hospital course due to placement issues; active issues are: Sacral Ulcer - New since past ~ 1 week; 1.5 cm fissure; not draining; not erythematous; no sign of infection; will apply medi-honey and get wound care nurse input; Urinary retention - appears to have resolved; baker placed back on 08/23 due to conerns about soiling his ulcer; -continue flomax and finasteride; -monitor for signs of sepsis; Hyponatremia - Resolved; appears to be on a stable free water regimen with tube feeds at 60 cc/hr (continuous) and H20 flushes 250 cc q8h; 08/25/16 17:07
--- NOTE | 2016-08-26 07:34 | CP.PCM.PN ---
<Marcus Yip - Last Filed: 08/26/16 16:03> Subjective - Date & Time of Evaluation Date of Evaluation: 08/26/16 Time of Evaluation: 07:34 - Subjective Subjective: PGY1 Medicine Progress Note Dr. Beth's Service: Patient seen and examined at bedside. Patient status remains unchanged. Patient is responsive to painful stimuli and nonresponsive to verbal stimuli. Patient resting comfortably in bed with TV continuously on. Trach collar and PEG tube intact and functioning properly. Baker catheter still in place, 900 cc/24hrs. Will change back to [place] catheter and do voiding trial. Objective - Vital Signs/Intake and Output Vital Signs (last 24 hours): Temp Pulse Resp BP Pulse Ox 97.6 F 84 20 116/80 98 08/25/16 23:54 08/25/16 23:54 08/25/16 23:54 08/25/16 23:54 08/25/16 23:54 Intake and Output: 08/26/16 08/26/16 06:59 18:59 Intake Total 1460 Output Total 600 Balance 860 - Medications Medications: Current Medications Aspirin (Aspirin Chewable) 81 mg PEG DAILY [facility] Last Admin: 08/25/16 09:41 Dose: 81 mg Carvedilol (Coreg) 3.125 mg PEG BID [facility] Last Admin: 08/25/16 17:25 Dose: 3.125 mg Clopidogrel Bisulfate (Plavix) 75 mg PEG DAILY [facility] Last Admin: 08/25/16 09:41 Dose: 75 mg Enoxaparin Sodium (Lovenox) 30 mg SC DAILY [facility] Last Admin: 08/25/16 09:41 Dose: 30 mg Famotidine (Pepcid) 20 mg PEG BID [facility] Last Admin: 08/25/16 17:25 Dose: 20 mg Finasteride (Proscar) 5 mg PO DAILY [facility] Last Admin: 08/25/16 09:41 Dose: 5 mg Levetiracetam (Keppra) 500 mg PO BID [facility] Last Admin: 08/25/16 17:25 Dose: 500 mg Polyethylene Glycol (Miralax) 17 gm PO QPM [facility] Last Admin: 07/22/16 17:46 Dose: 17 gm Tamsulosin HCl (Flomax) 0.4 mg PO DAILY [facility] Last Admin: 08/25/16 09:41 Dose: 0.4 mg - Labs Labs: 08/24/16 08:25 08/24/16 08:25 PT 10.6 SECONDS (9.7-12.2) 11/24/15 14:10 INR 1.0 11/24/15 14:10 APTT 25 SECONDS (21-34) 11/24/15 14:10 - Constitutional Appears: Non-toxic, No Acute Distress - Head Exam Head Exam: ATRAUMATIC, NORMOCEPHALIC - Eye Exam Eye Exam: Normal appearance - ENT Exam ENT Exam: Mucous Membranes Moist - Neck Exam Additional comments: trach collar in place with minimal secretions - Respiratory Exam Respiratory Exam: NORMAL BREATHING PATTERN. absent: Accessory Muscle Use, Wheezes, Respiratory Distress - Cardiovascular Exam Cardiovascular Exam: REGULAR RHYTHM, +S1, +S2 - GI/Abdominal Exam GI & Abdominal Exam: Soft, Normal Bowel Sounds. absent: Distended, Firm, Rigid Additional comments: PEG tube in place, site clean and dry - Exam Additional comments: baker in place with <100cc of urine in bag - Extremities Exam Extremities Exam: Normal Capillary Refill. absent: Pedal Edema Additional comments: heel boots in place for ulcer prevention - Back Exam Additional comments: Sacral area with ~ 1.5 cm abrasion - Neurological Exam Neurological Exam: Altered. absent: Oriented x3 - Psychiatric Exam Psychiatric exam: Flat Affect - Skin Skin Exam: Dry, Intact, Warm Assessment and Plan - Assessment and Plan (Free Text) Plan: (1) Anoxic encephalopathy 08/26: Continue Current management 08/18: Unchanged. Continue to monitor weekly labs, continue with q2h turning, therapy, feeds through PEG site and suctioning trach routinely Pending jail facility placement Baker has been reinserted to prevent soiling of the skin 2) Urinary Retention 08/26: Changing baker back to [place] catheter, voiding trial and serial bladder scans (150 cc and 89 cc - no retention) 08/25: Continue Current management 08/23: Resolved - Baker has been reinserted to prevent soiling of the skin 08/18: I's & O's will consider removing urinary catheter and do voiding trial Continue weekly labs Continue monitoring patient and vitals (3) Abdominal Distension 08/18: Resolved. Tube feeds 60cc/hr continuously PEG tube intact and functioning Continue to monitor (4) Failure to thrive 08/26: Continue Current management 08/18: Continuous Tube feeds 60cc/hr. 250cc of free water flush q8H Measure weight weekly. (5) Respiratory failure 08/26:Continue Current management 08/18: Continue trach care and suctioning as needed IV Primaxin completed s/p trach Monitor (6) CAD (coronary artery disease) 08/26: Continue Current management 08/18: Continue current management. s/p cardiac stents on 06/13/15 Continue ASA 81mg via PEG daily Carvedilol 3.125mg PO BID Continue Plavix 75mg via PEG daily (7) Seizures 08/26: Continue Current management 08/18: Stable at this time. Continue Keppra 500mg PEG BID for seizure prophylaxis Phenytoin d/c due to continued inc in LFT's on 07/21/16. (8) Sacral Ulcers 08/26: ~1.5 cm abrasion in sacral region, Wound Care Nurse asked to see pt, He said "he will take care of it" 08/25: Abrasion now 15mm, will speak to wound care for recommendations, Again pt turning Q2H was stressed to nursing staff 08/24: Abrasion is now ~ 10 mm, turning the pt Q2H was stressed to nursing staff to prevent ulceration 08/20: Small 1 mm abrasion in sacral area. Informed nursing and instructed them to turn him intermittently. Nursing to use barrier to prevent further progression of abrasion 08/19:Resolved Continue to turn patient q2hrs Monitor with skin checks (9) Prophylactic measure Pepcid 20 mg PEG BID Heparin 5000 units SQ q8h SCDs Heel Boots in place <Nathaniel Beth - Last Filed: 08/26/16 20:11> Objective - Vital Signs/Intake and Output Vital Signs (last 24 hours): Temp Pulse Resp BP Pulse Ox 98.0 F 76 20 133/82 99 08/26/16 16:58 08/26/16 16:58 08/26/16 16:58 08/26/16 16:58 08/26/16 16:58 Intake and Output: 08/26/16 08/27/16 18:59 06:59 Output Total 450 Balance -450 - Medications Medications: Current Medications Aspirin (Aspirin Chewable) 81 mg PEG DAILY [facility] Last Admin: 08/26/16 10:51 Dose: 81 mg Carvedilol (Coreg) 3.125 mg PEG BID [facility] Last Admin: 08/26/16 18:12 Dose: 3.125 mg Clopidogrel Bisulfate (Plavix) 75 mg PEG DAILY [facility] Last Admin: 08/26/16 10:51 Dose: 75 mg Enoxaparin Sodium (Lovenox) 30 mg SC DAILY [facility] Last Admin: 08/26/16 10:52 Dose: 30 mg Famotidine (Pepcid) 20 mg PEG BID [facility] Last Admin: 08/26/16 18:13 Dose: 20 mg Finasteride (Proscar) 5 mg PO DAILY [facility] Last Admin: 08/26/16 10:52 Dose: 5 mg Levetiracetam (Keppra) 500 mg PO BID [facility] Last Admin: 08/26/16 18:13 Dose: 500 mg Polyethylene Glycol (Miralax) 17 gm PO QPM [facility] Last Admin: 07/22/16 17:46 Dose: 17 gm Tamsulosin HCl (Flomax) 0.4 mg PO DAILY [facility] Last Admin: 08/26/16 10:51 Dose: 0.4 mg - Labs Labs: 08/24/16 08:25 08/24/16 08:25 PT 10.6 SECONDS (9.7-12.2) 11/24/15 14:10 INR 1.0 11/24/15 14:10 APTT 25 SECONDS (21-34) 11/24/15 14:10 Attending/Attestation - Attestation I have personally seen and examined this patient.: Yes I have fully participated in the care of the patient.: Yes I have reviewed all pertinent clinical information, including history, physical exam and plan: Yes Notes (Text): Patient seen and examined; I agree with the resident's note as above with the following additions/edits: Patient admitted after cardiac arrest, subsequent anoxic encephalopathy; prolonged hospital course due to inability to find placement; Active issues are: Sacral ulcer; ~1.5 cm linear fissure, non-draining, no erythema; wound care nurse informed today for further recs; otherwise, q2h turning; Urinary retention; appears resolved; on flomax and finasteride; baker removed today to avoid catheter related infection (placed 3 days ago due to concern about soiling his sacral ulcer); bladder scan done today showing no retention ( 89 cc measured); will continue flomax 0.4 mg daily and finasteride; Hyponatremia; resolved; continue tube feeds continuously at 60 cc/hr and free H20 flushes 250 cc q8h CAD; continue ASA and plavix (stent last year); coreg 3.125 mg bid for systolic dysfunction. 08/26/16 20:04
[2016-08-26] MEDS: Enoxaparin 30 mg Syringe SC SCH (10:52)
--- NOTE | 2016-08-27 07:15 | CP.PCM.PN ---
<Marcus Yip - Last Filed: 08/27/16 17:52> Subjective - Date & Time of Evaluation Date of Evaluation: 08/27/16 Time of Evaluation: 07:14 - Subjective Subjective: PGY1 Medicine Progress Note Dr. Beth's Service: Patient seen and examined at bedside. Patient status remains unchanged. Patient is responsive to painful stimuli and nonresponsive to verbal stimuli. Patient resting comfortably in bed with TV continuously on. Trach collar and PEG tube intact and functioning properly. [place] catheter in place. Objective - Vital Signs/Intake and Output Vital Signs (last 24 hours): Temp Pulse Resp BP Pulse Ox 98.4 F 69 20 100/61 98 08/26/16 23:46 08/26/16 23:46 08/26/16 23:46 08/26/16 23:46 08/26/16 23:46 Intake and Output: 08/27/16 08/27/16 06:59 18:59 Intake Total 730 Output Total 700 Balance 30 - Medications Medications: Current Medications Aspirin (Aspirin Chewable) 81 mg PEG DAILY [facility] Last Admin: 08/26/16 10:51 Dose: 81 mg Carvedilol (Coreg) 3.125 mg PEG BID [facility] Last Admin: 08/26/16 18:12 Dose: 3.125 mg Clopidogrel Bisulfate (Plavix) 75 mg PEG DAILY [facility] Last Admin: 08/26/16 10:51 Dose: 75 mg Enoxaparin Sodium (Lovenox) 30 mg SC DAILY [facility] Last Admin: 08/26/16 10:52 Dose: 30 mg Famotidine (Pepcid) 20 mg PEG BID [facility] Last Admin: 08/26/16 18:13 Dose: 20 mg Finasteride (Proscar) 5 mg PO DAILY [facility] Last Admin: 08/26/16 10:52 Dose: 5 mg Levetiracetam (Keppra) 500 mg PO BID [facility] Last Admin: 08/26/16 18:13 Dose: 500 mg Polyethylene Glycol (Miralax) 17 gm PO QPM [facility] Last Admin: 07/22/16 17:46 Dose: 17 gm Tamsulosin HCl (Flomax) 0.4 mg PO DAILY [facility] Last Admin: 08/26/16 10:51 Dose: 0.4 mg - Labs Labs: 08/24/16 08:25 08/24/16 08:25 PT 10.6 SECONDS (9.7-12.2) 11/24/15 14:10 INR 1.0 11/24/15 14:10 APTT 25 SECONDS (21-34) 11/24/15 14:10 - Constitutional Appears: Non-toxic, No Acute Distress - Head Exam Head Exam: ATRAUMATIC, NORMOCEPHALIC - Eye Exam Eye Exam: Normal appearance - ENT Exam ENT Exam: Mucous Membranes Moist - Neck Exam Additional comments: trach collar in place with minimal secretions - Respiratory Exam Respiratory Exam: absent: Accessory Muscle Use, Respiratory Distress - Cardiovascular Exam Cardiovascular Exam: REGULAR RHYTHM, +S1, +S2 - GI/Abdominal Exam GI & Abdominal Exam: Soft, Normal Bowel Sounds. absent: Distended Additional comments: PEG tube in place, site clean and dry - Exam Additional comments: [place] catheter in place with ~10 cc of urine in bag - Extremities Exam Extremities Exam: Normal Capillary Refill Additional comments: heel boots in place - Back Exam Additional comments: Small stage 2 sacral ulcer. 3 x 0.2 cm, sensicare protective ointment 3x/day and frequent repositioning - Neurological Exam Neurological Exam: Altered. absent: Oriented x3 - Psychiatric Exam Psychiatric exam: Flat Affect - Skin Skin Exam: Dry, Intact, Normal Color, Warm Assessment and Plan - Assessment and Plan (Free Text) Plan: (1) Anoxic encephalopathy 08/27: Continue Current management 08/18: Unchanged. 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 Tube feeds 60cc/hr continuously PEG tube intact and functioning Continue to monitor (4) Failure to thrive 08/27: Continue Current management 08/18: Continuous Tube feeds 60cc/hr. 250cc of free water flush q8H Measure weight weekly. (5) Respiratory failure 08/27: Continue Current management 08/18: Continue trach care and suctioning as needed IV Primaxin completed s/p trach Monitor (6) CAD (coronary artery disease) 08/27: Continue Current management 08/18: Continue current management. s/p cardiac stents on 06/13/15 Continue ASA 81mg via PEG daily Carvedilol 3.125mg PO BID Continue Plavix 75mg via PEG daily (7) Seizures 08/27: Continue Current management 08/18: Stable at this time. Continue Keppra 500mg PEG BID for seizure prophylaxis Phenytoin d/c due to continued inc in LFT's on 07/21/16. (8) Sacral Ulcers 08/27: Small stage 2 sacral ulcer. 3 x 0.2 cm, sensicare protective ointment 3x/ day and frequent repositioning 08/26: ~1.5 cm abrasion in sacral region, Wound Care Nurse asked to see pt, He said "he will take care of it" 08/25: Abrasion now 15mm, will speak to wound care for recommendations, Again pt turning Q2H was stressed to nursing staff 08/24: Abrasion is now ~ 10 mm, turning the pt Q2H was stressed to nursing staff to prevent ulceration 08/20: Small 1 mm abrasion in sacral area. Informed nursing and instructed them to turn him intermittently. Nursing to use barrier to prevent further progression of abrasion 08/19:Resolved Continue to turn patient q2hrs Monitor with skin checks (9) Prophylactic measure Pepcid 20 mg PEG BID Heparin 5000 units SQ q8h SCDs Heel Boots in place <Nathaniel Beth - Last Filed: 08/27/16 18:47> Objective - Vital Signs/Intake and Output Vital Signs (last 24 hours): Temp Pulse Resp BP Pulse Ox 97.6 F 102 H 20 108/70 100 08/27/16 15:56 08/27/16 16:19 08/27/16 15:56 08/27/16 15:56 08/27/16 15:56 Intake and Output: 08/27/16 08/27/16 06:59 18:59 Intake Total 730 Output Total 700 Balance 30 - Medications Medications: Current Medications Aspirin (Aspirin Chewable) 81 mg PEG DAILY [facility] Last Admin: 08/27/16 10:04 Dose: 81 mg Carvedilol (Coreg) 3.125 mg PEG BID [facility] Last Admin: 08/27/16 17:30 Dose: 3.125 mg Clopidogrel Bisulfate (Plavix) 75 mg PEG DAILY [facility] Last Admin: 08/27/16 10:03 Dose: 75 mg Enoxaparin Sodium (Lovenox) 30 mg SC DAILY [facility] Last Admin: 08/27/16 10:04 Dose: 30 mg Famotidine (Pepcid) 20 mg PEG BID [facility] Last Admin: 08/27/16 17:30 Dose: 20 mg Finasteride (Proscar) 5 mg PO DAILY [facility] Last Admin: 08/27/16 10:06 Dose: 5 mg Levetiracetam (Keppra) 500 mg PO BID [facility] Last Admin: 08/27/16 17:30 Dose: 500 mg Polyethylene Glycol (Miralax) 17 gm PO QPM [facility] Last Admin: 07/22/16 17:46 Dose: 17 gm Tamsulosin HCl (Flomax) 0.4 mg PO DAILY [facility] Last Admin: 08/27/16 10:03 Dose: 0.4 mg - Labs Labs: 08/24/16 08:25 08/24/16 08:25 PT 10.6 SECONDS (9.7-12.2) 11/24/15 14:10 INR 1.0 11/24/15 14:10 APTT 25 SECONDS (21-34) 11/24/15 14:10 Attending/Attestation - Attestation I have personally seen and examined this patient.: Yes I have fully participated in the care of the patient.: Yes I have reviewed all pertinent clinical information, including history, physical exam and plan: Yes Notes (Text): Patient seen and examined; I agree with the resident's note as above with the following additions/edits: Patient admitted with cardiac arrest, subsequent anoxic encephalopathy; prolonged hospital course (>1 year) due to inability to find placement; Active issues: Sacral ulceration - Stage 2 ulceration, 3 cm fissure; seen by wound care nurse today; recommended protective ointment; Urinary retention - Resolved; baker discontinued yesterday; bladder scan showed patient not having urinary retention; will repeat periodic bladder scans; continue flomax and finasteride; CAD s/p stent - On ASA/plavix; on coreg for systolic dysfunction; continue same ; BP controlled; Hyponatremia - Resolved; on stable free H20 fluid intake with 60 cc/hr continuous tube feed and 250 cc q8h free H20 flushes; will monitor with weekly CMP; 08/27/16 18:41
[2016-08-27] MEDS: Enoxaparin 30 mg Syringe SC SCH (10:04)
[2016-08-28] MEDS: Enoxaparin 30 mg Syringe SC SCH (11:14)
--- NOTE | 2016-08-28 12:10 | CP.PCM.PN ---
<Drake Alicea - Last Filed: 08/28/16 13:27> Subjective - Date & Time of Evaluation Date of Evaluation: 08/28/16 Time of Evaluation: 07:00 - Subjective Subjective: Dr. Alicea PGY-1 Hospitalist Note Patient seen and evaluated at bedside. Patient not responsive to voice or physical stimulation. Patient resting comfortably with [place] cath, trach, and PEG in place. No adverse events over night per nursing. Objective - Vital Signs/Intake and Output Vital Signs (last 24 hours): Temp Pulse Resp BP Pulse Ox 98.6 F 73 20 100/68 98 08/28/16 07:53 08/28/16 08:38 08/28/16 07:53 08/28/16 07:53 08/28/16 07:53 Intake and Output: 08/28/16 08/28/16 06:59 18:59 Intake Total 1210 Output Total 700 Balance 510 - Medications Medications: Current Medications Aspirin (Aspirin Chewable) 81 mg PEG DAILY [facility] Last Admin: 08/28/16 11:13 Dose: 81 mg Carvedilol (Coreg) 3.125 mg PEG BID [facility] Last Admin: 08/28/16 11:13 Dose: 3.125 mg Clopidogrel Bisulfate (Plavix) 75 mg PEG DAILY [facility] Last Admin: 08/28/16 11:13 Dose: 75 mg Enoxaparin Sodium (Lovenox) 30 mg SC DAILY [facility] Last Admin: 08/28/16 11:14 Dose: 30 mg Famotidine (Pepcid) 20 mg PEG BID [facility] Last Admin: 08/28/16 11:13 Dose: 20 mg Finasteride (Proscar) 5 mg PO DAILY [facility] Last Admin: 08/28/16 11:14 Dose: 5 mg Levetiracetam (Keppra) 500 mg PO BID [facility] Last Admin: 08/28/16 11:13 Dose: 500 mg Polyethylene Glycol (Miralax) 17 gm PO QPM [facility] Last Admin: 07/22/16 17:46 Dose: 17 gm Tamsulosin HCl (Flomax) 0.4 mg PO DAILY [facility] Last Admin: 08/28/16 11:14 Dose: 0.4 mg - Labs Labs: 08/24/16 08:25 08/24/16 08:25 PT 10.6 SECONDS (9.7-12.2) 11/24/15 14:10 INR 1.0 11/24/15 14:10 APTT 25 SECONDS (21-34) 11/24/15 14:10 - Constitutional Appears: Non-toxic, No Acute Distress - Head Exam Head Exam: ATRAUMATIC, NORMAL INSPECTION - Eye Exam Eye Exam: EOMI, Normal appearance Pupil Exam: NORMAL ACCOMODATION, PERRL - ENT Exam ENT Exam: Mucous Membranes Moist, Normal Exam - Neck Exam Neck Exam: Normal Inspection - Respiratory Exam Respiratory Exam: Clear to Ausculation Bilateral, NORMAL BREATHING PATTERN. absent: Rales, Rhonchi, Wheezes - Cardiovascular Exam Cardiovascular Exam: REGULAR RHYTHM, +S1, +S2 - GI/Abdominal Exam GI & Abdominal Exam: Soft, Normal Bowel Sounds. absent: Tenderness - Exam Exam: NORMAL INSPECTION - Extremities Exam Additional comments: SCD's in place Compression boots in place - Back Exam Additional comments: healing ulcer with medihoney dressing - Neurological Exam Neurological Exam: Awake - Skin Skin Exam: Dry, Normal Color, Warm Assessment and Plan - Assessment and Plan (Free Text) Assessment: (1) Anoxic encephalopathy 08/28: Continue Current management 08/18: Unchanged. Continue to monitor weekly labs, continue with q2h turning, therapy, feeds through PEG site and suctioning trach routinely Pending terminologist facility placement Baker has been reinserted to prevent soiling of the skin 2) Urinary Retention 08/28: Pt not retaining, [place] catheter in place 08/26: Changing baker back to [place] catheter, voiding trial and serial bladder scans (150 cc and 89 cc - no retention) 08/25: Continue Current management 08/23: Resolved - Baker has been reinserted to prevent soiling of the skin 08/18: I's & O's will consider removing urinary catheter and do voiding trial Continue weekly labs Continue monitoring patient and vitals (3) Abdominal Distension 08/18: Resolved. Tube feeds 60cc/hr continuously PEG tube intact and functioning Continue to monitor (4) Failure to thrive 08/28: Continue Current management 08/18: Continuous Tube feeds 60cc/hr. 250cc of free water flush q8H Measure weight weekly. (5) Respiratory failure 08/28: Continue Current management 08/18: Continue trach care and suctioning as needed IV Primaxin completed s/p trach Monitor (6) CAD (coronary artery disease) 08/28: Continue Current management 08/18: Continue current management. s/p cardiac stents on 06/13/15 Continue ASA 81mg via PEG daily Carvedilol 3.125mg PO BID Continue Plavix 75mg via PEG daily (7) Seizures 08/28: Continue Current management 08/18: Stable at this time. Continue Keppra 500mg PEG BID for seizure prophylaxis Phenytoin d/c due to continued inc in LFT's on 07/21/16. (8) Sacral Ulcers 08/28: Small stage 2 sacral ulcer. 3 x 0.2 cm, sensicare protective ointment 3x/ day and frequent repositioning 08/26: ~1.5 cm abrasion in sacral region, Wound Care Nurse asked to see pt, He said "he will take care of it" 08/25: Abrasion now 15mm, will speak to wound care for recommendations, Again pt turning Q2H was stressed to nursing staff 08/24: Abrasion is now ~ 10 mm, turning the pt Q2H was stressed to nursing staff to prevent ulceration 08/20: Small 1 mm abrasion in sacral area. Informed nursing and instructed them to turn him intermittently. Nursing to use barrier to prevent further progression of abrasion 08/19:Resolved Continue to turn patient q2hrs Monitor with skin checks (9) Prophylactic measure Pepcid 20 mg PEG BID Heparin 5000 units SQ q8h SCDs Heel Boots in place <Nathaniel Beth - Last Filed: 08/31/16 08:30> Objective - Vital Signs/Intake and Output Vital Signs (last 24 hours): Temp Pulse Resp BP Pulse Ox 98.7 F 92 H 20 124/83 100 08/31/16 07:41 08/31/16 07:41 08/31/16 07:41 08/31/16 07:41 08/31/16 07:41 Intake and Output: 08/31/16 08/31/16 06:59 18:59 Intake Total 1210 Balance 1210 - Medications Medications: Current Medications Aspirin (Aspirin Chewable) 81 mg PEG DAILY [facility] Last Admin: 08/30/16 10:58 Dose: 81 mg Carvedilol (Coreg) 3.125 mg PEG BID [facility] Last Admin: 08/30/16 18:17 Dose: 3.125 mg Clopidogrel Bisulfate (Plavix) 75 mg PEG DAILY [facility] Last Admin: 08/30/16 10:57 Dose: 75 mg Enoxaparin Sodium (Lovenox) 30 mg SC DAILY [facility] Last Admin: 08/30/16 10:58 Dose: 30 mg Famotidine (Pepcid) 20 mg PEG BID [facility] Last Admin: 08/30/16 18:17 Dose: 20 mg Finasteride (Proscar) 5 mg PO DAILY [facility] Last Admin: 08/30/16 10:58 Dose: 5 mg Levetiracetam (Keppra) 500 mg PO BID [facility] Last Admin: 08/30/16 18:17 Dose: 500 mg Polyethylene Glycol (Miralax) 17 gm PO QPM [facility] Last Admin: 07/22/16 17:46 Dose: 17 gm Tamsulosin HCl (Flomax) 0.4 mg PO DAILY [facility] Last Admin: 08/30/16 10:58 Dose: 0.4 mg - Labs Labs: 08/24/16 08:25 08/24/16 08:25 PT 10.6 SECONDS (9.7-12.2) 11/24/15 14:10 INR 1.0 11/24/15 14:10 APTT 25 SECONDS (21-34) 11/24/15 14:10 Attending/Attestation - Attestation I have personally seen and examined this patient.: Yes I have fully participated in the care of the patient.: Yes I have reviewed all pertinent clinical information, including history, physical exam and plan: Yes Notes (Text): Patient seen and examined; I agree with the resident"s note as above with the following additions/edits: Patient admitted with cardiac arrest, subsequent anoxic encephalopathy, with prolonged hospital course (>1 year) due to inability to find placement; Active issues are: Sacral decubitus ulcer - 3 cm fissure; clean, no sign of infection; no heel ulcers on my exam; -apply sensicare; frequent re-positioning Hyponatremia - Resolved but need to assess with weekly lab draw; -continue current regmen of tube feeds at 60 cc/hr and free H20 flushes 250 cc q8h Urinary Retention - Resolved; should assess with periodic bladder scans; -Continue flomax and finasteride Recurrent UTI - Resolved; -avoid baker catheter -monitor WBC on weekly labs
[2016-08-29] MEDS: Enoxaparin 30 mg Syringe SC SCH (10:19)
--- NOTE | 2016-08-29 14:15 | CP.PCM.PN ---
<Drake Alicea - Last Filed: 08/29/16 14:12> Subjective - Date & Time of Evaluation Date of Evaluation: 08/29/16 Time of Evaluation: 07:00 - Subjective Subjective: Dr. Alicea Hospitalist Note Patient seen and evaluated at bedside. Patient's PEG and trach in place. He is resting comfortably in bed. No adverse events over night per nursing. Objective - Vital Signs/Intake and Output Vital Signs (last 24 hours): Temp Pulse Resp BP Pulse Ox 98 F 81 20 111/71 98 08/29/16 08:11 08/29/16 09:51 08/29/16 08:11 08/29/16 08:11 08/29/16 08:11 Intake and Output: 08/29/16 08/29/16 06:59 18:59 Intake Total 1460 Output Total 635 400 Balance 825 -400 - Medications Medications: Current Medications Aspirin (Aspirin Chewable) 81 mg PEG DAILY [facility] Last Admin: 08/29/16 10:19 Dose: 81 mg Carvedilol (Coreg) 3.125 mg PEG BID [facility] Last Admin: 08/29/16 10:18 Dose: 3.125 mg Clopidogrel Bisulfate (Plavix) 75 mg PEG DAILY [facility] Last Admin: 08/29/16 10:19 Dose: 75 mg Enoxaparin Sodium (Lovenox) 30 mg SC DAILY [facility] Last Admin: 08/29/16 10:19 Dose: 30 mg Famotidine (Pepcid) 20 mg PEG BID [facility] Last Admin: 08/29/16 10:19 Dose: 20 mg Finasteride (Proscar) 5 mg PO DAILY [facility] Last Admin: 08/29/16 10:20 Dose: 5 mg Levetiracetam (Keppra) 500 mg PO BID [facility] Last Admin: 08/29/16 10:19 Dose: 500 mg Polyethylene Glycol (Miralax) 17 gm PO QPM [facility] Last Admin: 07/22/16 17:46 Dose: 17 gm Tamsulosin HCl (Flomax) 0.4 mg PO DAILY [facility] Last Admin: 08/29/16 10:19 Dose: 0.4 mg - Labs Labs: 08/24/16 08:25 08/24/16 08:25 PT 10.6 SECONDS (9.7-12.2) 11/24/15 14:10 INR 1.0 11/24/15 14:10 APTT 25 SECONDS (21-34) 11/24/15 14:10 - Constitutional Appears: Non-toxic, No Acute Distress - Head Exam Head Exam: ATRAUMATIC, NORMAL INSPECTION - Eye Exam Eye Exam: EOMI, Normal appearance, PERRL Pupil Exam: NORMAL ACCOMODATION, PERRL - ENT Exam ENT Exam: Mucous Membranes Moist - Neck Exam Neck Exam: Normal Inspection Additional comments: trach in place - Respiratory Exam Respiratory Exam: Clear to Ausculation Bilateral, NORMAL BREATHING PATTERN. absent: Rales, Rhonchi, Wheezes - Cardiovascular Exam Cardiovascular Exam: REGULAR RHYTHM, +S1, +S2. absent: Gallop, Rubs, Murmur - GI/Abdominal Exam GI & Abdominal Exam: Soft, Normal Bowel Sounds. absent: Tenderness Additional comments: PEG in place - Extremities Exam Extremities Exam: Full ROM, Normal Inspection Additional comments: heel protector boots in place - Back Exam Additional comments: sacral decubitus ulcer treated with medihoney - Neurological Exam Neurological Exam: Awake - Skin Skin Exam: Dry, Intact, Warm Assessment and Plan - Assessment and Plan (Free Text) Assessment: Assessment: (1) Anoxic encephalopathy 08/29: Continue Current management 08/18: Unchanged. 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 Tube feeds 60cc/hr continuously PEG tube intact and functioning Continue to monitor (4) Failure to thrive 08/29: Continue Current management 08/18: Continuous Tube feeds 60cc/hr. 250cc of free water flush q8H Measure weight weekly. (5) Respiratory failure 08/29: Continue Current management 08/18: Continue trach care and suctioning as needed IV Primaxin completed s/p trach Monitor (6) CAD (coronary artery disease) 08/29: Continue Current management 08/18: Continue current management. s/p cardiac stents on 06/13/15 Continue ASA 81mg via PEG daily Carvedilol 3.125mg PO BID Continue Plavix 75mg via PEG daily (7) Seizures 08/29: Continue Current management 08/18: Stable at this time. Continue Keppra 500mg PEG BID for seizure prophylaxis Phenytoin d/c due to continued inc in LFT's on 07/21/16. (8) Sacral Ulcers 08/29: Small stage 2 sacral ulcer. 3 x 0.2 cm, sensicare protective ointment 3x/ day and frequent repositioning 08/26: ~1.5 cm abrasion in sacral region, Wound Care Nurse asked to see pt, He said "he will take care of it" 08/25: Abrasion now 15mm, will speak to wound care for recommendations, Again pt turning Q2H was stressed to nursing staff 08/24: Abrasion is now ~ 10 mm, turning the pt Q2H was stressed to nursing staff to prevent ulceration 08/20: Small 1 mm abrasion in sacral area. Informed nursing and instructed them to turn him intermittently. Nursing to use barrier to prevent further progression of abrasion 08/19:Resolved Continue to turn patient q2hrs Monitor with skin checks (9) Prophylactic measure Pepcid 20 mg PEG BID Heparin 5000 units SQ q8h SCDs Heel Boots in place <Nathaniel Beth - Last Filed: 08/31/16 08:30> Objective - Vital Signs/Intake and Output Vital Signs (last 24 hours): Temp Pulse Resp BP Pulse Ox 98.7 F 92 H 20 124/83 100 08/31/16 07:41 08/31/16 07:41 08/31/16 07:41 08/31/16 07:41 08/31/16 07:41 Intake and Output: 08/31/16 08/31/16 06:59 18:59 Intake Total 1210 Balance 1210 - Medications Medications: Current Medications Aspirin (Aspirin Chewable) 81 mg PEG DAILY [facility] Last Admin: 08/30/16 10:58 Dose: 81 mg Carvedilol (Coreg) 3.125 mg PEG BID [facility] Last Admin: 08/30/16 18:17 Dose: 3.125 mg Clopidogrel Bisulfate (Plavix) 75 mg PEG DAILY [facility] Last Admin: 08/30/16 10:57 Dose: 75 mg Enoxaparin Sodium (Lovenox) 30 mg SC DAILY [facility] Last Admin: 08/30/16 10:58 Dose: 30 mg Famotidine (Pepcid) 20 mg PEG BID [facility] Last Admin: 08/30/16 18:17 Dose: 20 mg Finasteride (Proscar) 5 mg PO DAILY [facility] Last Admin: 08/30/16 10:58 Dose: 5 mg Levetiracetam (Keppra) 500 mg PO BID [facility] Last Admin: 08/30/16 18:17 Dose: 500 mg Polyethylene Glycol (Miralax) 17 gm PO QPM [facility] Last Admin: 07/22/16 17:46 Dose: 17 gm Tamsulosin HCl (Flomax) 0.4 mg PO DAILY [facility] Last Admin: 08/30/16 10:58 Dose: 0.4 mg - Labs Labs: 08/24/16 08:25 08/24/16 08:25 PT 10.6 SECONDS (9.7-12.2) 11/24/15 14:10 INR 1.0 11/24/15 14:10 APTT 25 SECONDS (21-34) 11/24/15 14:10 Attending/Attestation - Attestation I have personally seen and examined this patient.: Yes I have fully participated in the care of the patient.: Yes I have reviewed all pertinent clinical information, including history, physical exam and plan: Yes Notes (Text): Patient seen and examined; I agree with the resident"s note as above with the following additions/edits: Patient admitted with cardiac arrest, subsequent anoxic encephalopathy, with prolonged hospital course (>1 year) due to inability to find placement; Active issues are: Sacral decubitus ulcer - 3 cm fissure; clean, no sign of infection; no heel ulcers on my exam; -apply sensicare; frequent re-positioning Hyponatremia - Resolved but need to assess with weekly lab draw; -continue current regmen of tube feeds at 60 cc/hr and free H20 flushes 250 cc q8h Urinary Retention - Resolved; should assess with periodic bladder scans; -Continue flomax and finasteride Recurrent UTI - Resolved; -avoid baker catheter -monitor WBC on weekly labs
--- NOTE | 2016-08-30 02:48 | CP.PCM.PN ---
<Tanya Campos - Last Filed: 08/30/16 02:46> Subjective - Date & Time of Evaluation Date of Evaluation: 08/30/16 Time of Evaluation: 02:46 - Subjective Subjective: PGY-[address] Beth, Patient seen and evaluated at bedside. PEG and trach are in place. He is resting comfortably in bed. As per nurse, no acute events throughout the night. Objective - Vital Signs/Intake and Output Vital Signs (last 24 hours): Temp Pulse Resp BP Pulse Ox 98.3 F 89 18 123/78 98 08/29/16 23:50 08/29/16 23:50 08/29/16 23:50 08/29/16 23:50 08/29/16 23:50 Intake and Output: 08/29/16 08/30/16 18:59 06:59 Intake Total 730 Output Total 400 400 Balance -400 330 - Medications Medications: Current Medications Aspirin (Aspirin Chewable) 81 mg PEG DAILY [facility] Last Admin: 08/29/16 10:19 Dose: 81 mg Carvedilol (Coreg) 3.125 mg PEG BID [facility] Last Admin: 08/29/16 18:00 Dose: 3.125 mg Clopidogrel Bisulfate (Plavix) 75 mg PEG DAILY [facility] Last Admin: 08/29/16 10:19 Dose: 75 mg Enoxaparin Sodium (Lovenox) 30 mg SC DAILY [facility] Last Admin: 08/29/16 10:19 Dose: 30 mg Famotidine (Pepcid) 20 mg PEG BID [facility] Last Admin: 08/29/16 21:45 Dose: 20 mg Finasteride (Proscar) 5 mg PO DAILY [facility] Last Admin: 08/29/16 10:20 Dose: 5 mg Levetiracetam (Keppra) 500 mg PO BID [facility] Last Admin: 08/29/16 18:00 Dose: 500 mg Polyethylene Glycol (Miralax) 17 gm PO QPM [facility] Last Admin: 07/22/16 17:46 Dose: 17 gm Tamsulosin HCl (Flomax) 0.4 mg PO DAILY [facility] Last Admin: 08/29/16 10:19 Dose: 0.4 mg - Labs Labs: 08/24/16 08:25 08/24/16 08:25 PT 10.6 SECONDS (9.7-12.2) 11/24/15 14:10 INR 1.0 11/24/15 14:10 APTT 25 SECONDS (21-34) 11/24/15 14:10 - Constitutional Appears: No Acute Distress - Head Exam Head Exam: NORMAL INSPECTION - Eye Exam Eye Exam: Normal appearance Pupil Exam: NORMAL ACCOMODATION - ENT Exam ENT Exam: Mucous Membranes Moist - Neck Exam Neck Exam: Normal Inspection Additional comments: trach in place - Respiratory Exam Respiratory Exam: Clear to Ausculation Bilateral, NORMAL BREATHING PATTERN. absent: Rales, Rhonchi, Wheezes - Cardiovascular Exam Cardiovascular Exam: REGULAR RHYTHM, RRR, +S1, +S2. absent: Diastolic murmur, Murmur - GI/Abdominal Exam GI & Abdominal Exam: Soft, Normal Bowel Sounds. absent: Distended, Tenderness Additional comments: PEG in place - Extremities Exam Additional comments: heel protector boots in place - Back Exam Additional comments: sacral decubitus ulcer treated with medihoney - Neurological Exam Neurological Exam: Awake - Skin Skin Exam: Dry, Intact, Warm Assessment and Plan - Assessment and Plan (Free Text) Plan: (1) Anoxic encephalopathy 08/30: Continue Current management 08/18: Unchanged. 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 Tube feeds 60cc/hr continuously PEG tube intact and functioning Continue to monitor (4) Failure to thrive 08/30: Continue Current management 08/18: Continuous Tube feeds 60cc/hr. 250cc of free water flush q8H Measure weight weekly. (5) Respiratory failure 08/30: Continue Current management 08/18: Continue trach care and suctioning as needed IV Primaxin completed s/p trach Monitor (6) CAD (coronary artery disease) 08/30: Continue Current management 08/18: Continue current management. s/p cardiac stents on 06/13/15 Continue ASA 81mg via PEG daily Carvedilol 3.125mg PO BID Continue Plavix 75mg via PEG daily (7) Seizures 08/30: Continue Current management 08/18: Stable at this time. Continue Keppra 500mg PEG BID for seizure prophylaxis Phenytoin d/c due to continued inc in LFT's on 07/21/16. (8) Sacral Ulcers 08/30: Small stage 2 sacral ulcer. 3 x 0.2 cm, sensicare protective ointment 3x/ day and frequent repositioning 08/26: ~1.5 cm abrasion in sacral region, Wound Care Nurse asked to see pt, He said "he will take care of it" 08/25: Abrasion now 15mm, will speak to wound care for recommendations, Again pt turning Q2H was stressed to nursing staff 08/24: Abrasion is now ~ 10 mm, turning the pt Q2H was stressed to nursing staff to prevent ulceration 08/20: Small 1 mm abrasion in sacral area. Informed nursing and instructed them to turn him intermittently. Nursing to use barrier to prevent further progression of abrasion 08/19:Resolved Continue to turn patient q2hrs Monitor with skin checks (9) Prophylactic measure Pepcid 20 mg PEG BID Heparin 5000 units SQ q8h SCDs Heel Boots in place <Nathaniel Beth - Last Filed: 08/31/16 08:29> Objective - Vital Signs/Intake and Output Vital Signs (last 24 hours): Temp Pulse Resp BP Pulse Ox 98.7 F 92 H 20 124/83 100 08/31/16 07:41 08/31/16 07:41 08/31/16 07:41 08/31/16 07:41 08/31/16 07:41 Intake and Output: 08/31/16 08/31/16 06:59 18:59 Intake Total 1210 Balance 1210 - Medications Medications: Current Medications Aspirin (Aspirin Chewable) 81 mg PEG DAILY [facility] Last Admin: 08/30/16 10:58 Dose: 81 mg Carvedilol (Coreg) 3.125 mg PEG BID [facility] Last Admin: 08/30/16 18:17 Dose: 3.125 mg Clopidogrel Bisulfate (Plavix) 75 mg PEG DAILY [facility] Last Admin: 08/30/16 10:57 Dose: 75 mg Enoxaparin Sodium (Lovenox) 30 mg SC DAILY [facility] Last Admin: 08/30/16 10:58 Dose: 30 mg Famotidine (Pepcid) 20 mg PEG BID [facility] Last Admin: 08/30/16 18:17 Dose: 20 mg Finasteride (Proscar) 5 mg PO DAILY [facility] Last Admin: 08/30/16 10:58 Dose: 5 mg Levetiracetam (Keppra) 500 mg PO BID [facility] Last Admin: 08/30/16 18:17 Dose: 500 mg Polyethylene Glycol (Miralax) 17 gm PO QPM [facility] Last Admin: 07/22/16 17:46 Dose: 17 gm Tamsulosin HCl (Flomax) 0.4 mg PO DAILY [facility] Last Admin: 08/30/16 10:58 Dose: 0.4 mg - Labs Labs: 08/24/16 08:25 08/24/16 08:25 PT 10.6 SECONDS (9.7-12.2) 11/24/15 14:10 INR 1.0 11/24/15 14:10 APTT 25 SECONDS (21-34) 11/24/15 14:10 Attending/Attestation - Attestation I have personally seen and examined this patient.: Yes I have fully participated in the care of the patient.: Yes I have reviewed all pertinent clinical information, including history, physical exam and plan: Yes Notes (Text): Patient seen and examined; I agree with the resident"s note as above with the following additions/edits: Patient admitted with cardiac arrest, subsequent anoxic encephalopathy, with prolonged hospital course (>1 year) due to inability to find placement; Active issues are: Sacral decubitus ulcer - 3 cm fissure; clean, no sign of infection; no heel ulcers on my exam; -apply sensicare; frequent re-positioning Hyponatremia - Resolved but need to assess with weekly lab draw; -continue current regmen of tube feeds at 60 cc/hr and free H20 flushes 250 cc q8h Urinary Retention - Resolved; should assess with periodic bladder scans; -Continue flomax and finasteride Recurrent UTI - Resolved; -avoid baker catheter -monitor WBC on weekly labs
[2016-08-30] MEDS: Enoxaparin 30 mg Syringe SC SCH (10:58)
--- NOTE | 2016-08-30 21:24 | CP.PCM.PN ---
Subjective - Date & Time of Evaluation Date of Evaluation: 08/31/16 Time of Evaluation: 12:00 - Subjective Subjective: PGY-[address] Beth, Patient seen and evaluated at bedside. PEG and trach are in place. He is resting comfortably in bed. As per nurse, no acute events throughout the night. Objective - Vital Signs/Intake and Output Vital Signs (last 24 hours): Temp Pulse Resp BP Pulse Ox 98.6 F 90 20 126/81 100 08/30/16 16:00 08/30/16 16:00 08/30/16 16:00 08/30/16 16:00 08/30/16 16:00 Intake and Output: 08/30/16 08/31/16 18:59 06:59 Intake Total 680 Balance 680 - Medications Medications: Current Medications Aspirin (Aspirin Chewable) 81 mg PEG DAILY [facility] Last Admin: 08/30/16 10:58 Dose: 81 mg Carvedilol (Coreg) 3.125 mg PEG BID [facility] Last Admin: 08/30/16 18:17 Dose: 3.125 mg Clopidogrel Bisulfate (Plavix) 75 mg PEG DAILY [facility] Last Admin: 08/30/16 10:57 Dose: 75 mg Enoxaparin Sodium (Lovenox) 30 mg SC DAILY [facility] Last Admin: 08/30/16 10:58 Dose: 30 mg Famotidine (Pepcid) 20 mg PEG BID [facility] Last Admin: 08/30/16 18:17 Dose: 20 mg Finasteride (Proscar) 5 mg PO DAILY [facility] Last Admin: 08/30/16 10:58 Dose: 5 mg Levetiracetam (Keppra) 500 mg PO BID [facility] Last Admin: 08/30/16 18:17 Dose: 500 mg Polyethylene Glycol (Miralax) 17 gm PO QPM [facility] Last Admin: 07/22/16 17:46 Dose: 17 gm Tamsulosin HCl (Flomax) 0.4 mg PO DAILY [facility] Last Admin: 08/30/16 10:58 Dose: 0.4 mg - Labs Labs: 08/24/16 08:25 08/24/16 08:25 PT 10.6 SECONDS (9.7-12.2) 11/24/15 14:10 INR 1.0 11/24/15 14:10 APTT 25 SECONDS (21-34) 11/24/15 14:10 - Constitutional Appears: No Acute Distress - Head Exam Head Exam: NORMAL INSPECTION, NORMOCEPHALIC - Eye Exam Eye Exam: Normal appearance Pupil Exam: NORMAL ACCOMODATION - ENT Exam ENT Exam: Normal Exam - Neck Exam Additional comments: trach in place - Respiratory Exam Respiratory Exam: Clear to Ausculation Bilateral, NORMAL BREATHING PATTERN - Cardiovascular Exam Cardiovascular Exam: REGULAR RHYTHM, RRR, +S1, +S2 - GI/Abdominal Exam GI & Abdominal Exam: Soft, Normal Bowel Sounds. absent: Distended Additional comments: PEG in place - Extremities Exam Additional comments: heel protector boots in place - Back Exam Additional comments: sacral decubitus ulcer treated with medihoney - Neurological Exam Neurological Exam: Awake - Skin Skin Exam: Dry, Intact, Warm Assessment and Plan - Assessment and Plan (Free Text) Plan: (1) Anoxic encephalopathy 08/31: Continue Current management 08/18: Unchanged. Continue to monitor weekly labs, continue with q2h turning, therapy, feeds through PEG site and suctioning trach routinely Pending assisted facility placement Baker has been reinserted to prevent soiling of the skin 2) Urinary Retention 08/31: Pt not retaining, [place] catheter in place 08/26: Changing baker back to [place] catheter, voiding trial and serial bladder scans (150 cc and 89 cc - no retention) 08/25: Continue Current management 08/23: Resolved - Baker has been reinserted to prevent soiling of the skin 08/18: I's & O's will consider removing urinary catheter and do voiding trial Continue weekly labs Continue monitoring patient and vitals (3) Abdominal Distension 08/18: Resolved. Tube feeds 60cc/hr continuously PEG tube intact and functioning Continue to monitor (4) Failure to thrive 08/31: Continue Current management 08/18: Continuous Tube feeds 60cc/hr. 250cc of free water flush q8H Measure weight weekly. (5) Respiratory failure 08/31: Continue Current management 08/18: Continue trach care and suctioning as needed IV Primaxin completed s/p trach Monitor (6) CAD (coronary artery disease) 08/31: Continue Current management 08/18: Continue current management. s/p cardiac stents on 06/13/15 Continue ASA 81mg via PEG daily Carvedilol 3.125mg PO BID Continue Plavix 75mg via PEG daily (7) Seizures 08/31: Continue Current management 08/18: Stable at this time. Continue Keppra 500mg PEG BID for seizure prophylaxis Phenytoin d/c due to continued inc in LFT's on 07/21/16. (8) Sacral Ulcers 08/31: Small stage 2 sacral ulcer. 3 x 0.2 cm, sensicare protective ointment 3x/ day and frequent repositioning 08/26: ~1.5 cm abrasion in sacral region, Wound Care Nurse asked to see pt, He said "he will take care of it" 08/25: Abrasion now 15mm, will speak to wound care for recommendations, Again pt turning Q2H was stressed to nursing staff 08/24: Abrasion is now ~ 10 mm, turning the pt Q2H was stressed to nursing staff to prevent ulceration 08/20: Small 1 mm abrasion in sacral area. Informed nursing and instructed them to turn him intermittently. Nursing to use barrier to prevent further progression of abrasion 08/19:Resolved Continue to turn patient q2hrs Monitor with skin checks (9) Prophylactic measure Pepcid 20 mg PEG BID Heparin 5000 units SQ q8h SCDs Heel Boots in place
[2016-08-31] MEDS: Enoxaparin 30 mg Syringe SC SCH (11:00)
[2016-08-31 17:33] LABS: BASO % 0.5 % (0.0-2.0); EOS # 0.4 K/uL (0.0-0.7); EOS % 4.2 % (0.0-4.0); LYMPH % 22.7 % (20.0-40.0); MEAN CELL VOLUME 88.9 fL (80.0-94.0); MEAN CORPUSCULAR HEMOGLOBIN 29.1 pg (27.0-31.0); MEAN CORPUSCULAR HGB CONC 32.8 g/dL (33.0-37.0); MEAN PLATELET VOLUME 9.5 fL (7.2-11.7); MONO # 0.9 K/uL (0.0-0.8); MONO % 9.9 % (0.0-10.0); NEUT # 5.5 K/uL (1.8-7.0); NEUT % 62.7 % (50.0-75.0); RBC 4.13 Mil/uL (4.40-5.90); RED CELL DISTRIBUTION WIDTH 14.8 % (11.5-14.5); WHITE BLOOD COUNT 8.8 K/uL (4.8-10.8)
[2016-08-31 17:49] LABS: ALBUMIN 3.7 g/dL (3.5-5.0)
[2016-08-31 17:52] LABS: ALB/GLOB RATIO 0.8 (1.0-2.1); AST/SGOT 25 U/L (17-59); BLOOD UREA NITROGEN 16 mg/dL (9-20); GFR NON-AFRICAN AMERICAN > 60
[2016-08-31 17:53] LABS: ALT/SGPT 43 U/L (21-72); CALCIUM 8.8 mg/dl (8.6-10.4)
[2016-09-01 08:36] LABS: ALBUMIN 3.5 g/dL (3.5-5.0)
[2016-09-01 08:39] LABS: ALB/GLOB RATIO 0.8 (1.0-2.1); AST/SGOT 22 U/L (17-59); BLOOD UREA NITROGEN 18 mg/dL (9-20); GFR NON-AFRICAN AMERICAN > 60
[2016-09-01 08:40] LABS: ALT/SGPT 29 U/L (21-72); CALCIUM 8.5 mg/dl (8.6-10.4)
[2016-09-01] MEDS: Enoxaparin 30 mg Syringe SC SCH (10:29)
--- NOTE | 2016-09-01 13:50 | CP.PCM.PN ---
<Judith Forrester - Last Filed: 09/01/16 13:42> Subjective - Date & Time of Evaluation Date of Evaluation: 09/01/16 Time of Evaluation: 09:15 - Subjective Subjective: Patient seen and examined this morning. Patient does not appear to be in any acute distress, no acute events overnight. Objective - Vital Signs/Intake and Output Vital Signs (last 24 hours): Temp Pulse Resp BP Pulse Ox 97.9 F 73 20 130/76 97 09/01/16 08:00 09/01/16 08:00 09/01/16 08:00 09/01/16 08:00 09/01/16 08:00 Intake and Output: 09/01/16 09/01/16 06:59 18:59 Intake Total 730 Output Total 250 400 Balance -250 330 - Medications Medications: Current Medications Aspirin (Aspirin Chewable) 81 mg PEG DAILY [facility] Last Admin: 09/01/16 10:27 Dose: 81 mg Carvedilol (Coreg) 3.125 mg PEG BID [facility] Last Admin: 09/01/16 10:28 Dose: 3.125 mg Clopidogrel Bisulfate (Plavix) 75 mg PEG DAILY [facility] Last Admin: 09/01/16 10:27 Dose: 75 mg Enoxaparin Sodium (Lovenox) 30 mg SC DAILY [facility] Last Admin: 09/01/16 10:29 Dose: 30 mg Famotidine (Pepcid) 20 mg PEG BID [facility] Last Admin: 09/01/16 10:29 Dose: 20 mg Finasteride (Proscar) 5 mg PO DAILY [facility] Last Admin: 09/01/16 10:30 Dose: 5 mg Levetiracetam (Keppra) 500 mg PO BID [facility] Last Admin: 09/01/16 10:28 Dose: 500 mg Polyethylene Glycol (Miralax) 17 gm PO QPM [facility] Last Admin: 07/22/16 17:46 Dose: 17 gm Tamsulosin HCl (Flomax) 0.4 mg PO DAILY [facility] Last Admin: 09/01/16 10:27 Dose: 0.4 mg - Labs Labs: 08/31/16 17:24 09/01/16 08:04 PT 10.6 SECONDS (9.7-12.2) 11/24/15 14:10 INR 1.0 11/24/15 14:10 APTT 25 SECONDS (21-34) 11/24/15 14:10 - Constitutional Appears: No Acute Distress - Head Exam Head Exam: ATRAUMATIC, NORMOCEPHALIC - Eye Exam Eye Exam: EOMI (patient does not make eye contact on exam) - ENT Exam ENT Exam: Mucous Membranes Moist - Neck Exam Additional comments: trach in place - Respiratory Exam Respiratory Exam: Clear to Ausculation Bilateral Additional comments: patient with copious secretions, coarse breath sounds from upper airway - Cardiovascular Exam Cardiovascular Exam: +S1, +S2 - GI/Abdominal Exam GI & Abdominal Exam: Normal Bowel Sounds Additional comments: PEG in place, no leaking noted - Extremities Exam Additional comments: mild edema of bilateral lower extremities, patient with pressure off-loading boots - Back Exam Additional comments: sacral ulcer - Neurological Exam Neurological Exam: Awake - Skin Skin Exam: Dry, Warm Assessment and Plan - Assessment and Plan (Free Text) Assessment: (1) Anoxic encephalopathy 09/01: Continue Current management 08/18: Unchanged. 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 (2) Bilateral Lower Extremity Edema 09/01: one time dose of Lasix 20mg IV (3) Urinary Retention 09/01: Pt not retaining, [place] catheter in place, post void residual last night zero 08/26: Changing baker back to [place] catheter, voiding trial and serial bladder scans (150 cc and 89 cc - no retention) 08/25: Continue Current management 08/23: Resolved - Baker has been reinserted to prevent soiling of the skin 08/18: I's & O's will consider removing urinary catheter and do voiding trial Continue weekly labs Continue monitoring patient and vitals (4) Abdominal Distension 09/01: continue current management PEG tube intact and functioning Continue to monitor 08/18: Resolved. Tube feeds 60cc/hr continuously (5) Failure to thrive 09/01: Continue Current management 08/18: Continuous Tube feeds 60cc/hr. 250cc of free water flush q8H Measure weight weekly. (6) Respiratory failure 09/01: Continue Current management of trach collar and secretions 08/18: Continue trach care and suctioning as needed IV Primaxin completed s/p trach Monitor (7) CAD (coronary artery disease) 09/01: Continue Current management 08/18: Continue current management. s/p cardiac stents on 06/13/15 Continue ASA 81mg via PEG daily Carvedilol 3.125mg PO BID Continue Plavix 75mg via PEG daily (8) Seizures 09/01: Continue Current management 08/18: Stable at this time. Continue Keppra 500mg PEG BID for seizure prophylaxis Phenytoin d/c due to continued inc in LFT's on 07/21/16. (9) Sacral Ulcers 09/01: small sacral ulcer- continue with local wound care and repositioning 08/31: Small stage 2 sacral ulcer. 3 x 0.2 cm, sensicare protective ointment 3x/ day and frequent repositioning 08/26: ~1.5 cm abrasion in sacral region, Wound Care Nurse asked to see pt, He said "he will take care of it" 08/25: Abrasion now 15mm, will speak to wound care for recommendations, Again pt turning Q2H was stressed to nursing staff 08/24: Abrasion is now ~ 10 mm, turning the pt Q2H was stressed to nursing staff to prevent ulceration 08/20: Small 1 mm abrasion in sacral area. Informed nursing and instructed them to turn him intermittently. Nursing to use barrier to prevent further progression of abrasion 08/19:Resolved Continue to turn patient q2hrs Monitor with skin checks (10) Prophylactic measure Pepcid 20 mg PEG BID lovenox 30mg SC daily SCDs Pressure offloading Heel Boots in place <Donnell Ying - Last Filed: 09/01/16 15:19> Objective - Vital Signs/Intake and Output Vital Signs (last 24 hours): Temp Pulse Resp BP Pulse Ox 97.9 F 73 20 130/76 97 09/01/16 08:00 09/01/16 08:00 09/01/16 08:00 09/01/16 13:00 09/01/16 08:00 Intake and Output: 09/01/16 09/01/16 06:59 18:59 Intake Total 970 Output Total 250 500 Balance -250 470 - Medications Medications: Current Medications Aspirin (Aspirin Chewable) 81 mg PEG DAILY [facility] Last Admin: 09/01/16 10:27 Dose: 81 mg Carvedilol (Coreg) 3.125 mg PEG BID [facility] Last Admin: 09/01/16 10:28 Dose: 3.125 mg Clopidogrel Bisulfate (Plavix) 75 mg PEG DAILY [facility] Last Admin: 10/10/16 10:27 Dose: 75 mg Enoxaparin Sodium (Lovenox) 30 mg SC DAILY [facility] Last Admin: 09/01/16 10:29 Dose: 30 mg Famotidine (Pepcid) 20 mg PEG BID [facility] Last Admin: 09/01/16 10:29 Dose: 20 mg Finasteride (Proscar) 5 mg PO DAILY [facility] Last Admin: 09/01/16 10:30 Dose: 5 mg Levetiracetam (Keppra) 500 mg PO BID [facility] Last Admin: 09/01/16 10:28 Dose: 500 mg Polyethylene Glycol (Miralax) 17 gm PO QPM [facility] Last Admin: 07/22/16 17:46 Dose: 17 gm Tamsulosin HCl (Flomax) 0.4 mg PO DAILY [facility] Last Admin: 09/01/16 10:27 Dose: 0.4 mg - Labs Labs: 08/31/16 17:24 09/01/16 08:04 PT 10.6 SECONDS (9.7-12.2) 11/24/15 14:10 INR 1.0 11/24/15 14:10 APTT 25 SECONDS (21-34) 11/24/15 14:10 Attending/Attestation - Attestation I have personally seen and examined this patient.: Yes I have fully participated in the care of the patient.: Yes I have reviewed all pertinent clinical information, including history, physical exam and plan: Yes Notes (Text): 09/01/16 15:18 Patient was seen and examined at bedside Continue current management Turn and position every 2 hours Discussed with the resident and agree with the above history and physical and assessment/plan by the resident
--- NOTE | 2016-09-02 10:23 | CP.PCM.PN ---
<Judith Forrester - Last Filed: 09/02/16 10:16> Subjective - Date & Time of Evaluation Date of Evaluation: 09/02/16 Time of Evaluation: 07:40 - Subjective Subjective: Patient seen and examined this morning. Per nursing, no events overnight. Patient found to have loose [place] catheter, nursing aware and patient was cleaned. Objective - Vital Signs/Intake and Output Vital Signs (last 24 hours): Temp Pulse Resp BP Pulse Ox 98.8 F 82 20 106/73 97 09/02/16 07:31 09/02/16 07:31 09/02/16 07:31 09/02/16 07:31 09/02/16 07:31 Intake and Output: 09/02/16 09/02/16 06:59 18:59 Intake Total 480 200 Output Total 350 100 Balance 130 100 - Medications Medications: Current Medications Aspirin (Aspirin Chewable) 81 mg PEG DAILY [facility] Last Admin: 09/01/16 10:27 Dose: 81 mg Carvedilol (Coreg) 3.125 mg PEG BID [facility] Last Admin: 09/01/16 18:32 Dose: 3.125 mg Clopidogrel Bisulfate (Plavix) 75 mg PEG DAILY [facility] Last Admin: 09/01/16 10:27 Dose: 75 mg Enoxaparin Sodium (Lovenox) 30 mg SC DAILY [facility] Last Admin: 09/01/16 10:29 Dose: 30 mg Famotidine (Pepcid) 20 mg PEG BID [facility] Last Admin: 09/01/16 18:32 Dose: 20 mg Finasteride (Proscar) 5 mg PO DAILY [facility] Last Admin: 09/01/16 10:30 Dose: 5 mg Levetiracetam (Keppra) 500 mg PO BID [facility] Last Admin: 09/01/16 18:32 Dose: 500 mg Polyethylene Glycol (Miralax) 17 gm PO QPM [facility] Last Admin: 07/22/16 17:46 Dose: 17 gm Tamsulosin HCl (Flomax) 0.4 mg PO DAILY [facility] Last Admin: 09/01/16 10:27 Dose: 0.4 mg - Labs Labs: 08/31/16 17:24 09/01/16 08:04 PT 10.6 SECONDS (9.7-12.2) 11/24/15 14:10 INR 1.0 11/24/15 14:10 APTT 25 SECONDS (21-34) 11/24/15 14:10 - Constitutional Appears: No Acute Distress - Head Exam Head Exam: ATRAUMATIC, NORMOCEPHALIC - Eye Exam Eye Exam: EOMI, Normal appearance - ENT Exam ENT Exam: Mucous Membranes Moist - Neck Exam Additional comments: patient with trach collar - Respiratory Exam Respiratory Exam: Clear to Ausculation Bilateral Additional comments: upper airway secretions - Cardiovascular Exam Cardiovascular Exam: +S1, +S2 - GI/Abdominal Exam GI & Abdominal Exam: Soft, Normal Bowel Sounds Additional comments: PEG tube in place, no leaking seen - Extremities Exam Extremities Exam: absent: Pedal Edema Additional comments: pressure off-loading boots present - Back Exam Additional comments: pink base sacral ulcer - Neurological Exam Neurological Exam: Awake - Skin Skin Exam: Dry, Warm Assessment and Plan - Assessment and Plan (Free Text) Assessment: Assessment: (1) Anoxic encephalopathy 09/02: Continue Current management Continue to monitor weekly labs on Sundays, continue with q2h turning, therapy, feeds through PEG site and suctioning trach routinely Pending senior living facility placement (2) Bilateral Lower Extremity Edema 09/02: resolved 09/01: one time dose of Lasix 20mg IV (3) Urinary Retention 09/02: Pt not retaining, [place] catheter was loose on early inspection in the morning, corrected on re-examination 08/26: Changing baker back to [place] catheter, voiding trial and serial bladder scans (150 cc and 89 cc - no retention) 08/25: Continue Current management 08/23: Resolved - Baker has been reinserted to prevent soiling of the skin 08/18: I's & O's will consider removing urinary catheter and do voiding trial Continue weekly labs Continue monitoring patient and vitals (4) Abdominal Distension 09/02: continue current management PEG tube intact and functioning Continue to monitor 08/18: Resolved. Tube feeds 60cc/hr continuously (5) Failure to thrive 09/02: Continue Current management- Continuous Tube feeds 60cc/hr. 250cc of free water flush q8H Measure weight weekly. (6) Respiratory failure 09/02: Continue Current management of trach collar and secretions- continue to suction IV Primaxin completed s/p trach Monitor (7) CAD (coronary artery disease) 09/02: Continue Current management s/p cardiac stents on 06/13/15 Continue ASA 81mg via PEG daily Carvedilol 3.125mg PO BID Continue Plavix 75mg via PEG daily (8) Seizures 09/02: Continue Current management Continue Keppra 500mg PEG BID for seizure prophylaxis Phenytoin d/c due to continued inc in LFT's on 07/21/16. (9) Sacral Ulcers 09/02: small sacral ulcer- continue with local wound care and repositioning, pink wound base 08/31: Small stage 2 sacral ulcer. 3 x 0.2 cm, sensicare protective ointment 3x/ day and frequent repositioning 08/26: ~1.5 cm abrasion in sacral region, Wound Care Nurse asked to see pt, He said "he will take care of it" 08/25: Abrasion now 15mm, will speak to wound care for recommendations, Again pt turning Q2H was stressed to nursing staff 08/24: Abrasion is now ~ 10 mm, turning the pt Q2H was stressed to nursing staff to prevent ulceration 08/20: Small 1 mm abrasion in sacral area. Informed nursing and instructed them to turn him intermittently. Nursing to use barrier to prevent further progression of abrasion 08/19:Resolved Continue to turn patient q2hrs Monitor with skin checks (10) Prophylactic measure Pepcid 20 mg PEG BID lovenox 30mg SC daily SCDs Pressure offloading Heel Boots in place <Donnell Ying - Last Filed: 09/02/16 18:44> Objective - Vital Signs/Intake and Output Vital Signs (last 24 hours): Temp Pulse Resp BP Pulse Ox 98.5 F 79 20 108/73 100 09/02/16 16:36 09/02/16 16:36 09/02/16 16:36 09/02/16 16:36 09/02/16 16:36 Intake and Output: 09/02/16 09/02/16 06:59 18:59 Intake Total 480 880 Output Total 350 150 Balance 130 730 - Medications Medications: Current Medications Aspirin (Aspirin Chewable) 81 mg PEG DAILY [facility] Last Admin: 09/02/16 11:15 Dose: 81 mg Carvedilol (Coreg) 3.125 mg PEG BID [facility] Last Admin: 09/02/16 17:28 Dose: 3.125 mg Clopidogrel Bisulfate (Plavix) 75 mg PEG DAILY [facility] Last Admin: 09/02/16 11:15 Dose: 75 mg Enoxaparin Sodium (Lovenox) 30 mg SC DAILY [facility] Last Admin: 09/02/16 11:15 Dose: 30 mg Famotidine (Pepcid) 20 mg PEG BID [facility] Last Admin: 09/02/16 17:28 Dose: 20 mg Finasteride (Proscar) 5 mg PO DAILY [facility] Last Admin: 09/02/16 11:14 Dose: 5 mg Levetiracetam (Keppra) 500 mg PO BID [facility] Last Admin: 09/02/16 17:28 Dose: 500 mg Polyethylene Glycol (Miralax) 17 gm PO QPM [facility] Last Admin: 07/22/16 17:46 Dose: 17 gm Tamsulosin HCl (Flomax) 0.4 mg PO DAILY [facility] Last Admin: 09/02/16 11:15 Dose: 0.4 mg - Labs Labs: 08/31/16 17:24 09/01/16 08:04 PT 10.6 SECONDS (9.7-12.2) 11/24/15 14:10 INR 1.0 11/24/15 14:10 APTT 25 SECONDS (21-34) 11/24/15 14:10 Attending/Attestation - Attestation I have personally seen and examined this patient.: Yes I have fully participated in the care of the patient.: Yes I have reviewed all pertinent clinical information, including history, physical exam and plan: Yes Notes (Text): 09/02/16 18:43 Patient was seen and examined at bedside with the resident neck and patient to has no change in clinical condition Continue current management Turn and position every 2 hours to prevent decubitus ulcers Discussed the plan of care with the resident
[2016-09-02] MEDS: Enoxaparin 30 mg Syringe SC SCH (11:15)
--- NOTE | 2016-09-03 07:37 | CP.PCM.PN ---
<Judith Forrester - Last Filed: 09/03/16 10:35> Subjective - Date & Time of Evaluation Date of Evaluation: 09/03/16 Time of Evaluation: 07:35 - Subjective Subjective: Patient seen and examined this morning at bedside. Patient sleeping, in no acute distress. No events overnight. Objective - Vital Signs/Intake and Output Vital Signs (last 24 hours): Temp Pulse Resp BP Pulse Ox 97.8 F 89 20 98/64 L 98 09/03/16 00:00 09/03/16 00:00 09/03/16 00:00 09/03/16 00:00 09/03/16 00:00 Intake and Output: 09/03/16 09/03/16 06:59 18:59 Intake Total 680 Output Total 300 100 Balance -300 580 - Medications Medications: Current Medications Aspirin (Aspirin Chewable) 81 mg PEG DAILY [facility] Last Admin: 09/02/16 11:15 Dose: 81 mg Carvedilol (Coreg) 3.125 mg PEG BID [facility] Last Admin: 09/02/16 17:28 Dose: 3.125 mg Clopidogrel Bisulfate (Plavix) 75 mg PEG DAILY [facility] Last Admin: 09/02/16 11:15 Dose: 75 mg Enoxaparin Sodium (Lovenox) 30 mg SC DAILY [facility] Last Admin: 09/02/16 11:15 Dose: 30 mg Famotidine (Pepcid) 20 mg PEG BID [facility] Last Admin: 09/02/16 17:28 Dose: 20 mg Finasteride (Proscar) 5 mg PO DAILY [facility] Last Admin: 09/02/16 11:14 Dose: 5 mg Levetiracetam (Keppra) 500 mg PO BID [facility] Last Admin: 09/02/16 17:28 Dose: 500 mg Polyethylene Glycol (Miralax) 17 gm PO QPM [facility] Last Admin: 07/22/16 17:46 Dose: 17 gm Tamsulosin HCl (Flomax) 0.4 mg PO DAILY [facility] Last Admin: 09/02/16 11:15 Dose: 0.4 mg - Labs Labs: 08/31/16 17:24 09/01/16 08:04 PT 10.6 SECONDS (9.7-12.2) 11/24/15 14:10 INR 1.0 11/24/15 14:10 APTT 25 SECONDS (21-34) 11/24/15 14:10 - Constitutional Appears: No Acute Distress - Head Exam Head Exam: ATRAUMATIC, NORMOCEPHALIC - Eye Exam Additional comments: Patient sleeping but arousable - ENT Exam ENT Exam: Mucous Membranes Moist - Respiratory Exam Respiratory Exam: Clear to Ausculation Bilateral Additional comments: coarse breath sounds from upper airway secretions - GI/Abdominal Exam GI & Abdominal Exam: Soft, Normal Bowel Sounds. 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 (2) Bilateral Lower Extremity Edema 09/03: resolved 09/01: one time dose of Lasix 20mg IV (3) Urinary Retention 09/03: [employer] catheter in place, urine draining 09/02: Pt not retaining, [employer] catheter was loose on early inspection in the morning, corrected on re-examination 08/26: Changing baker back to [place] catheter, voiding trial and serial bladder scans (150 cc and 89 cc - no retention) 08/25: Continue Current management 08/23: Resolved - Baker has been reinserted to prevent soiling of the skin 08/18: I's & O's will consider removing urinary catheter and do voiding trial Continue weekly labs Continue monitoring patient and vitals (4) Abdominal Distension 09/03: continue current management PEG tube intact and functioning Continue to monitor 08/18: Resolved. Tube feeds 60cc/hr continuously (5) Failure to thrive 09/03: Continue Current management- Continuous Tube feeds 60cc/hr. 250cc of free water flush q8H Measure weight weekly. (6) Respiratory failure 09/03: Continue Current management of trach collar and secretions- continue to suction IV Primaxin completed s/p trach Monitor (7) CAD (coronary artery disease) 09/03: Continue Current management s/p cardiac stents on 06/13/15 Continue ASA 81mg via PEG daily Carvedilol 3.125mg PO BID Continue Plavix 75mg via PEG daily (8) Seizures 09/03: Continue Current management Continue Keppra 500mg PEG BID for seizure prophylaxis Phenytoin d/c due to continued inc in LFT's on 07/21/16. (9) Sacral Ulcers 09/03: small sacral ulcer- continue with local wound care and repositioning, pink wound base 08/31: Small stage 2 sacral ulcer. 3 x 0.2 cm, sensicare protective ointment 3x/ day and frequent repositioning 08/26: ~1.5 cm abrasion in sacral region, Wound Care Nurse asked to see pt, He said "he will take care of it" 08/25: Abrasion now 15mm, will speak to wound care for recommendations, Again pt turning Q2H was stressed to nursing staff 08/24: Abrasion is now ~ 10 mm, turning the pt Q2H was stressed to nursing staff to prevent ulceration 08/20: Small 1 mm abrasion in sacral area. Informed nursing and instructed them to turn him intermittently. Nursing to use barrier to prevent further progression of abrasion 08/19:Resolved Continue to turn patient q2hrs Monitor with skin checks (10) Prophylactic measure Pepcid 20 mg PEG BID lovenox 30mg SC daily SCDs Pressure offloading Heel Boots in place <Donnell Ying - Last Filed: 09/04/16 08:24> Objective - Vital Signs/Intake and Output Vital Signs (last 24 hours): Temp Pulse Resp BP Pulse Ox 97.9 F 72 20 131/81 99 09/03/16 23:59 09/03/16 23:59 09/03/16 23:59 09/03/16 23:59 09/03/16 23:59 Intake and Output: 09/04/16 09/04/16 06:59 18:59 Intake Total 680 Output Total 600 Balance 80 - Medications Medications: Current Medications Aspirin (Aspirin Chewable) 81 mg PEG DAILY [facility] Last Admin: 09/03/16 10:13 Dose: 81 mg Carvedilol (Coreg) 3.125 mg PEG BID [facility] Last Admin: 09/03/16 17:55 Dose: 3.125 mg Clopidogrel Bisulfate (Plavix) 75 mg PEG DAILY [facility] Last Admin: 09/03/16 10:14 Dose: 75 mg Enoxaparin Sodium (Lovenox) 30 mg SC DAILY [facility] Last Admin: 09/03/16 10:14 Dose: 30 mg Famotidine (Pepcid) 20 mg PEG BID [facility] Last Admin: 09/03/16 17:55 Dose: 20 mg Finasteride (Proscar) 5 mg PO DAILY [facility] Last Admin: 09/03/16 10:13 Dose: 5 mg Levetiracetam (Keppra) 500 mg PO BID [facility] Last Admin: 09/03/16 17:55 Dose: 500 mg Polyethylene Glycol (Miralax) 17 gm PO QPM [facility] Last Admin: 07/22/16 17:46 Dose: 17 gm Tamsulosin HCl (Flomax) 0.4 mg PO DAILY [facility] Last Admin: 09/03/16 10:14 Dose: 0.4 mg - Labs Labs: 08/31/16 17:24 09/01/16 08:04 PT 10.6 SECONDS (9.7-12.2) 11/24/15 14:10 INR 1.0 11/24/15 14:10 APTT 25 SECONDS (21-34) 11/24/15 14:10 Attending/Attestation - Attestation I have personally seen and examined this patient.: Yes I have fully participated in the care of the patient.: Yes I have reviewed all pertinent clinical information, including history, physical exam and plan: Yes Notes (Text): 09/04/16 08:23 Patient was seen and examined at bedside with the resident No change in clinical condition Continue current management Turn and position the patient every 2 hours to prevent decubitus ulcers Continue local care of the PEG tube site and the tracheostomy site
[2016-09-03] MEDS: Enoxaparin 30 mg Syringe SC SCH (10:14)
--- NOTE | 2016-09-04 07:51 | CP.PCM.PN ---
<Tanya Campos - Last Filed: 09/04/16 12:11> Subjective - Date & Time of Evaluation Date of Evaluation: 09/04/16 Time of Evaluation: 07:49 - Subjective Subjective: PGY-[address] Ying, Patient seen and evaluated at bedside. PEG and trach are in place. He is resting comfortably in bed. As per nurse, no acute events throughout the night. Objective - Vital Signs/Intake and Output Vital Signs (last 24 hours): Temp Pulse Resp BP Pulse Ox 97.9 F 72 20 131/81 99 09/03/16 23:59 09/03/16 23:59 09/03/16 23:59 09/03/16 23:59 09/03/16 23:59 Intake and Output: 09/04/16 09/04/16 06:59 18:59 Intake Total 680 Output Total 600 Balance 80 - Medications Medications: Current Medications Aspirin (Aspirin Chewable) 81 mg PEG DAILY [facility] Last Admin: 09/03/16 10:13 Dose: 81 mg Carvedilol (Coreg) 3.125 mg PEG BID [facility] Last Admin: 09/03/16 17:55 Dose: 3.125 mg Clopidogrel Bisulfate (Plavix) 75 mg PEG DAILY [facility] Last Admin: 09/03/16 10:14 Dose: 75 mg Enoxaparin Sodium (Lovenox) 30 mg SC DAILY [facility] Last Admin: 09/03/16 10:14 Dose: 30 mg Famotidine (Pepcid) 20 mg PEG BID [facility] Last Admin: 09/03/16 17:55 Dose: 20 mg Finasteride (Proscar) 5 mg PO DAILY [facility] Last Admin: 09/03/16 10:13 Dose: 5 mg Levetiracetam (Keppra) 500 mg PO BID [facility] Last Admin: 09/03/16 17:55 Dose: 500 mg Polyethylene Glycol (Miralax) 17 gm PO QPM [facility] Last Admin: 07/22/16 17:46 Dose: 17 gm Tamsulosin HCl (Flomax) 0.4 mg PO DAILY [facility] Last Admin: 09/03/16 10:14 Dose: 0.4 mg - Labs Labs: 08/31/16 17:24 09/01/16 08:04 PT 10.6 SECONDS (9.7-12.2) 11/24/15 14:10 INR 1.0 11/24/15 14:10 APTT 25 SECONDS (21-34) 11/24/15 14:10 - Constitutional Appears: No Acute Distress - Head Exam Head Exam: NORMAL INSPECTION, NORMOCEPHALIC - Eye Exam Eye Exam: Normal appearance - ENT Exam ENT Exam: Mucous Membranes Moist - Neck Exam Additional comments: trach in place - Respiratory Exam Additional comments: coarse breath sounds from upper airway secretions - Cardiovascular Exam Cardiovascular Exam: REGULAR RHYTHM, RRR, +S1, +S2 - GI/Abdominal Exam GI & Abdominal Exam: Soft, Normal Bowel Sounds. absent: Tenderness Additional comments: PEG in place - Exam Exam: NORMAL INSPECTION ([place] catheter in place) - Extremities Exam Additional comments: pressure offloading boots present - Back Exam Additional comments: sacral decubitus ulcer treated with medihoney - Neurological Exam Neurological Exam: Awake - Skin Skin Exam: Dry, Intact, Normal Color, Warm Assessment and Plan - Assessment and Plan (Free Text) Plan: (1) Anoxic encephalopathy 09/04: Continue Current management Continue to monitor weekly labs on Sundays, continue with q2h turning, therapy, feeds through PEG site and suctioning trach routinely Pending correction facility placement (2) Bilateral Lower Extremity Edema- resolved 09/01: one time dose of Lasix 20mg IV (3) Urinary Retention 09/04: [place] catheter in place, urine draining 09/02: Pt not retaining, [place] catheter was loose on early inspection in the morning, corrected on re-examination 08/26: Changing baker back to [place] catheter, voiding trial and serial bladder scans (150 cc and 89 cc - no retention) 08/25: Continue Current management 08/23: Resolved - [place] has been reinserted to prevent soiling of the skin 08/18: I's & O's will consider removing urinary catheter and do voiding trial Continue weekly labs Continue monitoring patient and vitals (4) Abdominal Distension 09/04: continue current management PEG tube intact and functioning Continue to monitor 08/18: Resolved. Tube feeds 60cc/hr continuously (5) Failure to thrive 09/04: Continue Current management- Continuous Tube feeds 50cc/hr. 250cc of free water flush q8H Measure weight weekly. (6) Respiratory failure 09/04: Continue Current management of trach collar and secretions- continue to suction IV Primaxin completed s/p trach Monitor (7) CAD (coronary artery disease) 09/04: Continue Current management s/p cardiac stents on 06/13/15 Continue ASA 81mg via PEG daily Carvedilol 3.125mg PO BID Continue Plavix 75mg via PEG daily (8) Seizures 09/04: Continue Current management Continue Keppra 500mg PEG BID for seizure prophylaxis Phenytoin d/c due to continued inc in LFT's on 07/21/16. (9) Sacral Ulcers 09/04: small sacral ulcer- continue with local wound care and repositioning, pink wound base 08/31: Small stage 2 sacral ulcer. 3 x 0.2 cm, sensicare protective ointment 3x/ day and frequent repositioning 08/26: ~1.5 cm abrasion in sacral region, Wound Care Nurse asked to see pt, He said "he will take care of it" 08/25: Abrasion now 15mm, will speak to wound care for recommendations, Again pt turning Q2H was stressed to nursing staff 08/24: Abrasion is now ~ 10 mm, turning the pt Q2H was stressed to nursing staff to prevent ulceration 08/20: Small 1 mm abrasion in sacral area. Informed nursing and instructed them to turn him intermittently. Nursing to use barrier to prevent further progression of abrasion 08/19:Resolved Continue to turn patient q2hrs Monitor with skin checks (10) Prophylactic measure Pepcid 20 mg PEG BID lovenox 30mg SC daily SCDs Pressure offloading Heel Boots in place DW Beth Ruiz DO, PGY-1 <Donnell Ying M - Last Filed: 09/04/16 15:42> Objective - Vital Signs/Intake and Output Vital Signs (last 24 hours): Temp Pulse Resp BP Pulse Ox 97.6 F 90 20 120/82 100 09/04/16 08:00 09/04/16 08:00 09/04/16 08:00 09/04/16 08:00 09/04/16 08:00 Intake and Output: 09/04/16 09/04/16 06:59 18:59 Intake Total 1360 660 Output Total 900 301 Balance 460 359 - Medications Medications: Current Medications Aspirin (Aspirin Chewable) 81 mg PEG DAILY [facility] Last Admin: 09/04/16 09:54 Dose: 81 mg Carvedilol (Coreg) 3.125 mg PEG BID [facility] Last Admin: 09/04/16 09:54 Dose: 3.125 mg Clopidogrel Bisulfate (Plavix) 75 mg PEG DAILY [facility] Last Admin: 09/04/16 09:54 Dose: 75 mg Enoxaparin Sodium (Lovenox) 30 mg SC DAILY [facility] Last Admin: 09/04/16 09:54 Dose: 30 mg Famotidine (Pepcid) 20 mg PEG BID [facility] Last Admin: 09/04/16 09:54 Dose: 20 mg Finasteride (Proscar) 5 mg PO DAILY [facility] Last Admin: 09/04/16 09:54 Dose: 5 mg Levetiracetam (Keppra) 500 mg PO BID [facility] Last Admin: 09/04/16 09:54 Dose: 500 mg Polyethylene Glycol (Miralax) 17 gm PO QPM [facility] Last Admin: 07/22/16 17:46 Dose: 17 gm Tamsulosin HCl (Flomax) 0.4 mg PO DAILY [facility] Last Admin: 09/04/16 09:54 Dose: 0.4 mg - Labs Labs: 08/31/16 17:24 09/01/16 08:04 PT 10.6 SECONDS (9.7-12.2) 11/24/15 14:10 INR 1.0 11/24/15 14:10 APTT 25 SECONDS (21-34) 11/24/15 14:10 Attending/Attestation - Attestation I have personally seen and examined this patient.: Yes I have fully participated in the care of the patient.: Yes I have reviewed all pertinent clinical information, including history, physical exam and plan: Yes Notes (Text): 09/04/16 15:42 Patient seen and examined at bedside with the resident No change in clinical condition Continue current management Plan of care discussed with the resident in detail and agree with the above history and physical and assessment/plan by the resident
[2016-09-04] MEDS: Enoxaparin 30 mg Syringe SC SCH (09:54)
[2016-09-05] MEDS: Enoxaparin 30 mg Syringe SC SCH (10:29)
--- NOTE | 2016-09-05 13:37 | CP.PCM.PN ---
<Judith Forrester - Last Filed: 09/05/16 13:34> Subjective - Date & Time of Evaluation Date of Evaluation: 09/05/16 Time of Evaluation: 07:40 - Subjective Subjective: Patient seen and examined. Patient resting comfortably in bed. No events overnight per nursing and no further difficulties with feedings via PEG. Objective - Vital Signs/Intake and Output Vital Signs (last 24 hours): Temp Pulse Resp BP Pulse Ox 98.4 F 83 20 107/72 100 09/04/16 23:39 09/04/16 23:39 09/04/16 23:39 09/05/16 10:13 09/04/16 23:39 Intake and Output: 09/05/16 09/05/16 06:59 18:59 Intake Total 1360 Output Total 820 Balance 540 - Medications Medications: Current Medications Aspirin (Aspirin Chewable) 81 mg PEG DAILY [facility] Last Admin: 09/05/16 10:29 Dose: 81 mg Carvedilol (Coreg) 3.125 mg PEG BID [facility] Last Admin: 09/05/16 10:29 Dose: 3.125 mg Clopidogrel Bisulfate (Plavix) 75 mg PEG DAILY [facility] Last Admin: 09/05/16 10:29 Dose: 75 mg Enoxaparin Sodium (Lovenox) 30 mg SC DAILY [facility] Last Admin: 09/05/16 10:29 Dose: 30 mg Famotidine (Pepcid) 20 mg PEG BID [facility] Last Admin: 09/05/16 10:29 Dose: 20 mg Finasteride (Proscar) 5 mg PO DAILY [facility] Last Admin: 09/05/16 10:29 Dose: 5 mg Levetiracetam (Keppra) 500 mg PO BID [facility] Last Admin: 09/05/16 10:29 Dose: 500 mg Polyethylene Glycol (Miralax) 17 gm PO QPM [facility] Last Admin: 07/22/16 17:46 Dose: 17 gm Tamsulosin HCl (Flomax) 0.4 mg PO DAILY [facility] Last Admin: 09/05/16 10:29 Dose: 0.4 mg - Labs Labs: 08/31/16 17:24 09/01/16 08:04 PT 10.6 SECONDS (9.7-12.2) 11/24/15 14:10 INR 1.0 11/24/15 14:10 APTT 25 SECONDS (21-34) 11/24/15 14:10 - Constitutional Appears: No Acute Distress - Head Exam Head Exam: ATRAUMATIC, NORMOCEPHALIC - ENT Exam ENT Exam: Mucous Membranes Moist - Neck Exam Additional comments: trach collar - Respiratory Exam Respiratory Exam: Clear to Ausculation Bilateral Additional comments: coarse breath sounds from upper airway secretions - Cardiovascular Exam Cardiovascular Exam: +S1, +S2 - GI/Abdominal Exam GI & Abdominal Exam: Soft, Normal Bowel Sounds. absent: Tenderness Additional comments: PEG site clean, no leakage - Exam Additional comments: [place] catheter in place - Extremities Exam Extremities Exam: absent: Pedal Edema Additional comments: pressure offloading boots on b/l lower extremities - Back Exam Additional comments: sacral decubitus ulcer- pink base - Neurological Exam Neurological Exam: Awake - Skin Skin Exam: Dry, Warm Assessment and Plan - Assessment and Plan (Free Text) Assessment: (1) Anoxic encephalopathy 09/05: Continue Current management Continue to monitor weekly labs on Sundays, continue with q2h turning, therapy, feeds through PEG site and suctioning trach routinely 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 (2) Bilateral Lower Extremity Edema- resolved 09/01: one time dose of Lasix 20mg IV (3) Urinary Retention 09/05: [place] catheter in place, urine draining 09/02: Pt not retaining, [place] catheter was loose on early inspection in the morning, corrected on re-examination 08/26: Changing baker back to [place] catheter, voiding trial and serial bladder scans (150 cc and 89 cc - no retention) 08/25: Continue Current management 08/23: Resolved - Baker has been reinserted to prevent soiling of the skin 08/18: I's & O's will consider removing urinary catheter and do voiding trial Continue weekly labs Continue monitoring patient and vitals (4) Abdominal Distension 09/05: continue current management PEG tube intact and functioning Continue to monitor 08/18: Resolved. Tube feeds 50cc/hr continuously- reduced from 60cc/h due to overflow on 09/04/16 (5) Failure to thrive 09/05: Continue Current management- Continuous Tube feeds 50cc/hr. 250cc of free water flush q8H Measure weight weekly. (6) Respiratory failure 09/05: Continue Current management of trach collar and secretions- continue to suction IV Primaxin completed s/p trach Monitor (7) CAD (coronary artery disease) 09/05: Continue Current management s/p cardiac stents on 06/13/15 Continue ASA 81mg via PEG daily Carvedilol 3.125mg PO BID Continue Plavix 75mg via PEG daily (8) Seizures 09/05: Continue Current management Continue Keppra 500mg PEG BID for seizure prophylaxis Phenytoin d/c due to continued inc in LFT's on 07/21/16. (9) Sacral Ulcers 09/05: small sacral ulcer- continue with local wound care and repositioning, pink wound base 08/31: Small stage 2 sacral ulcer. 3 x 0.2 cm, sensicare protective ointment 3x/ day and frequent repositioning 08/26: ~1.5 cm abrasion in sacral region, Wound Care Nurse asked to see pt, He said "he will take care of it" 08/25: Abrasion now 15mm, will speak to wound care for recommendations, Again pt turning Q2H was stressed to nursing staff 08/24: Abrasion is now ~ 10 mm, turning the pt Q2H was stressed to nursing staff to prevent ulceration 08/20: Small 1 mm abrasion in sacral area. Informed nursing and instructed them to turn him intermittently. Nursing to use barrier to prevent further progression of abrasion 08/19:Resolved Continue to turn patient q2hrs Monitor with skin checks (10) Prophylactic measure Pepcid 20 mg PEG BID lovenox 30mg SC daily SCDs Pressure offloading Heel Boots in place <Donnell Ying - Last Filed: 09/05/16 15:01> Objective - Vital Signs/Intake and Output Vital Signs (last 24 hours): Temp Pulse Resp BP Pulse Ox 98.4 F 83 20 107/72 100 09/04/16 23:39 09/04/16 23:39 09/04/16 23:39 09/05/16 10:13 09/04/16 23:39 Intake and Output: 09/05/16 09/05/16 06:59 18:59 Intake Total 1360 Output Total 820 Balance 540 - Medications Medications: Current Medications Aspirin (Aspirin Chewable) 81 mg PEG DAILY [facility] Last Admin: 09/05/16 10:29 Dose: 81 mg Carvedilol (Coreg) 3.125 mg PEG BID [facility] Last Admin: 09/05/16 10:29 Dose: 3.125 mg Clopidogrel Bisulfate (Plavix) 75 mg PEG DAILY [facility] Last Admin: 09/05/16 10:29 Dose: 75 mg Enoxaparin Sodium (Lovenox) 30 mg SC DAILY [facility] Last Admin: 09/05/16 10:29 Dose: 30 mg Famotidine (Pepcid) 20 mg PEG BID [facility] Last Admin: 09/05/16 10:29 Dose: 20 mg Finasteride (Proscar) 5 mg PO DAILY [facility] Last Admin: 09/05/16 10:29 Dose: 5 mg Levetiracetam (Keppra) 500 mg PO BID [facility] Last Admin: 09/05/16 10:29 Dose: 500 mg Polyethylene Glycol (Miralax) 17 gm PO QPM [facility] Last Admin: 07/22/16 17:46 Dose: 17 gm Tamsulosin HCl (Flomax) 0.4 mg PO DAILY [facility] Last Admin: 09/05/16 10:29 Dose: 0.4 mg - Labs Labs: 08/31/16 17:24 09/01/16 08:04 PT 10.6 SECONDS (9.7-12.2) 11/24/15 14:10 INR 1.0 11/24/15 14:10 APTT 25 SECONDS (21-34) 11/24/15 14:10 Attending/Attestation - Attestation I have personally seen and examined this patient.: Yes I have fully participated in the care of the patient.: Yes I have reviewed all pertinent clinical information, including history, physical exam and plan: Yes Notes (Text): 09/05/16 15:01 Patient seen and examined at bedside No change in clinical condition Continue current management
--- NOTE | 2016-09-06 01:18 | CP.PCM.PN ---
<Marcus Yip - Last Filed: 09/06/16 01:18> Subjective - Date & Time of Evaluation Date of Evaluation: 09/06/16 Time of Evaluation: 01:18 - Subjective Subjective: PGY1 Medicine Progress Note for Dr. Ying's Service: Patient seen and examined. Patient resting comfortably in bed. No events overnight per nursing and no further difficulties with feedings via PEG. Objective - Vital Signs/Intake and Output Vital Signs (last 24 hours): Temp Pulse Resp BP Pulse Ox 98.4 F 75 20 112/70 99 09/05/16 23:32 09/06/16 00:41 09/05/16 23:32 09/05/16 23:32 09/05/16 23:32 Intake and Output: 09/05/16 09/06/16 18:59 06:59 Intake Total 680 Output Total 400 250 Balance 280 -250 - Medications Medications: Current Medications Aspirin (Aspirin Chewable) 81 mg PEG DAILY [facility] Last Admin: 09/05/16 10:29 Dose: 81 mg Carvedilol (Coreg) 3.125 mg PEG BID [facility] Last Admin: 09/05/16 17:54 Dose: 3.125 mg Clopidogrel Bisulfate (Plavix) 75 mg PEG DAILY [facility] Last Admin: 09/05/16 10:29 Dose: 75 mg Enoxaparin Sodium (Lovenox) 30 mg SC DAILY [facility] Last Admin: 09/05/16 10:29 Dose: 30 mg Famotidine (Pepcid) 20 mg PEG BID [facility] Last Admin: 09/05/16 17:53 Dose: 20 mg Finasteride (Proscar) 5 mg PO DAILY [facility] Last Admin: 09/05/16 10:29 Dose: 5 mg Levetiracetam (Keppra) 500 mg PO BID [facility] Last Admin: 09/05/16 17:54 Dose: 500 mg Polyethylene Glycol (Miralax) 17 gm PO QPM [facility] Last Admin: 07/22/16 17:46 Dose: 17 gm Tamsulosin HCl (Flomax) 0.4 mg PO DAILY [facility] Last Admin: 09/05/16 10:29 Dose: 0.4 mg - Labs Labs: 08/31/16 17:24 09/01/16 08:04 PT 10.6 SECONDS (9.7-12.2) 11/24/15 14:10 INR 1.0 11/24/15 14:10 APTT 25 SECONDS (21-34) 11/24/15 14:10 - Constitutional Appears: No Acute Distress - Head Exam Head Exam: ATRAUMATIC, NORMOCEPHALIC - Eye Exam Eye Exam: EOMI, Normal appearance - ENT Exam ENT Exam: Mucous Membranes Moist - Neck Exam Additional comments: trach collar - Respiratory Exam Respiratory Exam: Clear to Ausculation Bilateral Additional comments: coarse breath sounds from upper airway secretions - Cardiovascular Exam Cardiovascular Exam: REGULAR RHYTHM, +S1, +S2 - GI/Abdominal Exam GI & Abdominal Exam: Soft, Normal Bowel Sounds. absent: Distended Additional comments: PEG site clean, no leakage - Exam Additional comments: [place] catheter in place - Extremities Exam Extremities Exam: Normal Capillary Refill. absent: Pedal Edema Additional comments: pressure offloading boots on b/l lower extremities - Back Exam Additional comments: sacral decubitus ulcer- pink base - Neurological Exam Neurological Exam: Awake - Psychiatric Exam Psychiatric exam: Flat Affect - Skin Skin Exam: Dry, Warm Assessment and Plan - Assessment and Plan (Free Text) Plan: (1) Anoxic encephalopathy 09/05: Continue Current management Continue to monitor weekly labs on Sundays, continue with q2h turning, therapy, feeds through PEG site and suctioning trach routinely Pending half-way facility placement (2) Bilateral Lower Extremity Edema- resolved 09/01: one time dose of Lasix 20mg IV (3) Urinary Retention 09/05: [place] catheter in place, urine draining 09/02: Pt not retaining, [place] catheter was loose on early inspection in the morning, corrected on re-examination 08/26: Changing baker back to [place] catheter, voiding trial and serial bladder scans (150 cc and 89 cc - no retention) 08/25: Continue Current management 08/23: Resolved - Baker has been reinserted to prevent soiling of the skin 08/18: I's & O's will consider removing urinary catheter and do voiding trial Continue weekly labs Continue monitoring patient and vitals (4) Abdominal Distension 09/05: continue current management PEG tube intact and functioning Continue to monitor 08/18: Resolved. Tube feeds 50cc/hr continuously- reduced from 60cc/h due to overflow on 09/04/16 (5) Failure to thrive 09/05: Continue Current management- Continuous Tube feeds 50cc/hr. 250cc of free water flush q8H Measure weight weekly. (6) Respiratory failure 09/05: Continue Current management of trach collar and secretions- continue to suction IV Primaxin completed s/p trach Monitor (7) CAD (coronary artery disease) 09/05: Continue Current management s/p cardiac stents on 06/13/15 Continue ASA 81mg via PEG daily Carvedilol 3.125mg PO BID Continue Plavix 75mg via PEG daily (8) Seizures 09/05: Continue Current management Continue Keppra 500mg PEG BID for seizure prophylaxis Phenytoin d/c due to continued inc in LFT's on 07/21/16. (9) Sacral Ulcers 09/05: small sacral ulcer- continue with local wound care and repositioning, pink wound base 08/31: Small stage 2 sacral ulcer. 3 x 0.2 cm, sensicare protective ointment 3x/ day and frequent repositioning 08/26: ~1.5 cm abrasion in sacral region, Wound Care Nurse asked to see pt, He said "he will take care of it" 08/25: Abrasion now 15mm, will speak to wound care for recommendations, Again pt turning Q2H was stressed to nursing staff 08/24: Abrasion is now ~ 10 mm, turning the pt Q2H was stressed to nursing staff to prevent ulceration 08/20: Small 1 mm abrasion in sacral area. Informed nursing and instructed them to turn him intermittently. Nursing to use barrier to prevent further progression of abrasion 08/19:Resolved Continue to turn patient q2hrs Monitor with skin checks (10) Prophylactic measure Pepcid 20 mg PEG BID lovenox 30mg SC daily SCDs Pressure offloading Heel Boots in place <Donnell Ying - Last Filed: 09/06/16 15:19> Objective - Vital Signs/Intake and Output Vital Signs (last 24 hours): Temp Pulse Resp BP Pulse Ox 98.1 F 83 18 94/58 L 96 09/06/16 08:00 09/06/16 08:00 09/06/16 08:00 09/06/16 08:00 09/06/16 08:00 Intake and Output: 09/06/16 09/06/16 06:59 18:59 Output Total 250 Balance -250 - Medications Medications: Current Medications Aspirin (Aspirin Chewable) 81 mg PEG DAILY [facility] Last Admin: 09/06/16 12:52 Dose: 81 mg Carvedilol (Coreg) 3.125 mg PEG BID [facility] Last Admin: 09/06/16 12:52 Dose: 3.125 mg Clopidogrel Bisulfate (Plavix) 75 mg PEG DAILY [facility] Last Admin: 09/06/16 12:52 Dose: 75 mg Enoxaparin Sodium (Lovenox) 30 mg SC DAILY [facility] Last Admin: 09/06/16 12:52 Dose: 30 mg Famotidine (Pepcid) 20 mg PEG BID [facility] Last Admin: 09/06/16 12:52 Dose: 20 mg Finasteride (Proscar) 5 mg PO DAILY [facility] Last Admin: 09/06/16 12:52 Dose: 5 mg Levetiracetam (Keppra) 500 mg PO BID [facility] Last Admin: 09/06/16 12:51 Dose: 500 mg Polyethylene Glycol (Miralax) 17 gm PO QPM [facility] Last Admin: 07/22/16 17:46 Dose: 17 gm Tamsulosin HCl (Flomax) 0.4 mg PO DAILY [facility] Last Admin: 09/06/16 12:52 Dose: 0.4 mg - Labs Labs: 08/31/16 17:24 09/01/16 08:04 PT 10.6 SECONDS (9.7-12.2) 11/24/15 14:10 INR 1.0 11/24/15 14:10 APTT 25 SECONDS (21-34) 11/24/15 14:10 Attending/Attestation - Attestation I have personally seen and examined this patient.: Yes I have fully participated in the care of the patient.: Yes I have reviewed all pertinent clinical information, including history, physical exam and plan: Yes Notes (Text): 09/06/16 15:19 Patient was seen and examined at bedside There is no change in clinical condition Continue current management
[2016-09-06] MEDS: Enoxaparin 30 mg Syringe SC SCH (12:52)
--- NOTE | 2016-09-07 00:30 | CP.PCM.PN ---
<Marcus Yip - Last Filed: 09/07/16 00:27> Subjective - Date & Time of Evaluation Date of Evaluation: 09/07/16 Time of Evaluation: 00:27 - Subjective Subjective: PGY1 Medicine Progress Note for Dr. Ying's Service: Patient seen and examined. Patient resting comfortably in bed. No events overnight per nursing and no further difficulties with feedings via PEG. Pt has [place] catheter in place. Objective - Vital Signs/Intake and Output Vital Signs (last 24 hours): Temp Pulse Resp BP Pulse Ox 97.9 F 98 H 20 103/66 99 09/06/16 23:58 09/06/16 23:58 09/06/16 23:58 09/06/16 23:58 09/06/16 23:58 Intake and Output: 09/06/16 09/07/16 18:59 06:59 Intake Total 680 680 Output Total 200 300 Balance 480 380 - Medications Medications: Current Medications Aspirin (Aspirin Chewable) 81 mg PEG DAILY [facility] Last Admin: 09/06/16 12:52 Dose: 81 mg Carvedilol (Coreg) 3.125 mg PEG BID [facility] Last Admin: 09/06/16 18:34 Dose: 3.125 mg Clopidogrel Bisulfate (Plavix) 75 mg PEG DAILY [facility] Last Admin: 09/06/16 12:52 Dose: 75 mg Enoxaparin Sodium (Lovenox) 30 mg SC DAILY [facility] Last Admin: 09/06/16 12:52 Dose: 30 mg Famotidine (Pepcid) 20 mg PEG BID [facility] Last Admin: 09/06/16 18:33 Dose: 20 mg Finasteride (Proscar) 5 mg PO DAILY [facility] Last Admin: 09/06/16 12:52 Dose: 5 mg Levetiracetam (Keppra) 500 mg PO BID [facility] Last Admin: 09/06/16 18:34 Dose: 500 mg Polyethylene Glycol (Miralax) 17 gm PO QPM [facility] Last Admin: 07/22/16 17:46 Dose: 17 gm Tamsulosin HCl (Flomax) 0.4 mg PO DAILY [facility] Last Admin: 09/06/16 12:52 Dose: 0.4 mg - Labs Labs: 08/31/16 17:24 09/01/16 08:04 PT 10.6 SECONDS (9.7-12.2) 11/24/15 14:10 INR 1.0 11/24/15 14:10 APTT 25 SECONDS (21-34) 11/24/15 14:10 - Constitutional Appears: No Acute Distress - Head Exam Head Exam: ATRAUMATIC, NORMOCEPHALIC - Eye Exam Eye Exam: EOMI, Normal appearance - ENT Exam ENT Exam: Mucous Membranes Moist - Neck Exam Additional comments: trach collar in place, minimal secretions - Respiratory Exam Respiratory Exam: Clear to Ausculation Bilateral Additional comments: coarse breath sounds from upper airway secretions - Cardiovascular Exam Cardiovascular Exam: REGULAR RHYTHM, +S1, +S2 - GI/Abdominal Exam GI & Abdominal Exam: Soft, Normal Bowel Sounds. absent: Distended Additional comments: PEG site clean, no leakage - Exam Additional comments: [place] catheter in place, draining urine - Extremities Exam Extremities Exam: Normal Capillary Refill. absent: Pedal Edema Additional comments: pressure offloading boots on b/l lower extremities - Back Exam Additional comments: sacral decubitus ulcer- pink base - Neurological Exam Neurological Exam: Awake - Psychiatric Exam Psychiatric exam: Flat Affect - Skin Skin Exam: Dry, Warm Assessment and Plan - Assessment and Plan (Free Text) Plan: (1) Anoxic encephalopathy 09/06: Continue Current management Continue to monitor weekly labs on Sundays, continue with q2h turning, therapy, feeds through PEG site and suctioning trach routinely Pending halfway facility placement (2) Bilateral Lower Extremity Edema- resolved 09/01: one time dose of Lasix 20mg IV (3) Urinary Retention 09/06: [place] catheter in place, urine draining 09/02: Pt not retaining, [place] catheter was loose on early inspection in the morning, corrected on re-examination 08/26: Changing baker back to [place] catheter, voiding trial and serial bladder scans (150 cc and 89 cc - no retention) 08/25: Continue Current management 08/23: Resolved - Baker has been reinserted to prevent soiling of the skin 08/18: I's & O's will consider removing urinary catheter and do voiding trial Continue weekly labs Continue monitoring patient and vitals (4) Abdominal Distension 09/06: continue current management PEG tube intact and functioning Continue to monitor 08/18: Resolved. Tube feeds 50cc/hr continuously- reduced from 60cc/h due to overflow on 09/04/16 (5) Failure to thrive 09/06: Continue Current management- Continuous Tube feeds 50cc/hr. 250cc of free water flush q8H Measure weight weekly. (6) Respiratory failure 09/06: Continue Current management of trach collar and secretions- continue to suction IV Primaxin completed s/p trach Monitor (7) CAD (coronary artery disease) 09/06: Continue Current management s/p cardiac stents on 06/13/15 Continue ASA 81mg via PEG daily Carvedilol 3.125mg PO BID Continue Plavix 75mg via PEG daily (8) Seizures 09/06: Continue Current management Continue Keppra 500mg PEG BID for seizure prophylaxis Phenytoin d/c due to continued inc in LFT's on 07/21/16. (9) Sacral Ulcers 09/06: small sacral ulcer- continue with local wound care and repositioning, pink wound base 08/31: Small stage 2 sacral ulcer. 3 x 0.2 cm, sensicare protective ointment 3x/ day and frequent repositioning 08/26: ~1.5 cm abrasion in sacral region, Wound Care Nurse asked to see pt, He said "he will take care of it" 08/25: Abrasion now 15mm, will speak to wound care for recommendations, Again pt turning Q2H was stressed to nursing staff 08/24: Abrasion is now ~ 10 mm, turning the pt Q2H was stressed to nursing staff to prevent ulceration 08/20: Small 1 mm abrasion in sacral area. Informed nursing and instructed them to turn him intermittently. Nursing to use barrier to prevent further progression of abrasion 08/19:Resolved Continue to turn patient q2hrs Monitor with skin checks (10) Prophylactic measure Pepcid 20 mg PEG BID lovenox 30mg SC daily SCDs Pressure offloading Heel Boots in place <Donnell Ying - Last Filed: 09/07/16 12:19> Objective - Vital Signs/Intake and Output Vital Signs (last 24 hours): Temp Pulse Resp BP Pulse Ox 98.3 F 71 20 96/56 L 100 09/07/16 08:19 09/07/16 08:19 09/07/16 08:19 09/07/16 08:19 09/07/16 08:19 Intake and Output: 09/07/16 09/07/16 06:59 18:59 Intake Total 680 Output Total 300 Balance 380 - Medications Medications: Current Medications Aspirin (Aspirin Chewable) 81 mg PEG DAILY [facility] Last Admin: 09/07/16 09:56 Dose: 81 mg Carvedilol (Coreg) 3.125 mg PEG BID [facility] Last Admin: 09/07/16 09:57 Dose: Not Given Clopidogrel Bisulfate (Plavix) 75 mg PEG DAILY [facility] Last Admin: 09/07/16 09:56 Dose: 75 mg Enoxaparin Sodium (Lovenox) 30 mg SC DAILY [facility] Last Admin: 09/07/16 09:57 Dose: 30 mg Famotidine (Pepcid) 20 mg PEG BID [facility] Last Admin: 09/07/16 09:57 Dose: 20 mg Finasteride (Proscar) 5 mg PO DAILY [facility] Last Admin: 09/07/16 09:56 Dose: 5 mg Levetiracetam (Keppra) 500 mg PO BID [facility] Last Admin: 09/07/16 09:56 Dose: 500 mg Polyethylene Glycol (Miralax) 17 gm PO QPM [facility] Last Admin: 07/22/16 17:46 Dose: 17 gm Tamsulosin HCl (Flomax) 0.4 mg PO DAILY [facility] Last Admin: 09/07/16 09:57 Dose: 0.4 mg - Labs Labs: 09/07/16 08:26 09/07/16 08:26 PT 10.6 SECONDS (9.7-12.2) 11/24/15 14:10 INR 1.0 11/24/15 14:10 APTT 25 SECONDS (21-34) 11/24/15 14:10 Attending/Attestation - Attestation I have personally seen and examined this patient.: Yes I have fully participated in the care of the patient.: Yes I have reviewed all pertinent clinical information, including history, physical exam and plan: Yes Notes (Text): 09/07/16 12:18 Patient was seen and examined at bedside with the resident Chart reviewed and events noted. No new complaints overnight We'll continue current management Continue local care of tracheostomy and PEG site Continue to turn and position every 2 hours
[2016-09-07 08:36] LABS: BASO % 0.4 % (0.0-2.0); EOS # 0.3 K/uL (0.0-0.7); EOS % 2.6 % (0.0-4.0); HEMOGLOBIN 11.4 g/dL (12.0-18.0); LYMPH # 2.2 K/uL (1.0-4.3); LYMPH % 19.1 % (20.0-40.0); MEAN CELL VOLUME 87.9 fL (80.0-94.0); MEAN CORPUSCULAR HEMOGLOBIN 29.2 pg (27.0-31.0); MEAN CORPUSCULAR HGB CONC 33.2 g/dL (33.0-37.0); MEAN PLATELET VOLUME 9.1 fL (7.2-11.7); MONO # 0.9 K/uL (0.0-0.8); MONO % 7.6 % (0.0-10.0); NEUT % 70.3 % (50.0-75.0); RBC 3.91 Mil/uL (4.40-5.90); RED CELL DISTRIBUTION WIDTH 14.8 % (11.5-14.5); WHITE BLOOD COUNT 11.4 K/uL (4.8-10.8)
[2016-09-07 08:56] LABS: ALBUMIN 3.3 g/dL (3.5-5.0)
[2016-09-07 08:59] LABS: ALB/GLOB RATIO 0.8 (1.0-2.1); AST/SGOT 21 U/L (17-59); BLOOD UREA NITROGEN 20 mg/dL (9-20); GFR NON-AFRICAN AMERICAN > 60
[2016-09-07 09:00] LABS: ALT/SGPT 42 U/L (21-72); CALCIUM 8.4 mg/dl (8.6-10.4)
[2016-09-07] MEDS: Enoxaparin 30 mg Syringe SC SCH (09:57)
--- NOTE | 2016-09-08 09:26 | CP.PCM.PN ---
<Saurabh Carmichael - Last Filed: 09/08/16 14:41> Subjective - Date & Time of Evaluation Date of Evaluation: 09/08/16 Time of Evaluation: 07:00 - Subjective Subjective: PGY1 Medicine Progress Note for Dr. Beth's Service: Patient seen and examined at bedside. Patient resting comfortably in bed. No events overnight per nursing. No reported difficulties with feedings via PEG. [place] catheter in place. Objective - Vital Signs/Intake and Output Vital Signs (last 24 hours): Temp Pulse Resp BP Pulse Ox 97.7 F 85 18 117/75 100 09/08/16 08:00 09/08/16 08:00 09/08/16 08:00 09/08/16 08:00 09/08/16 08:00 Intake and Output: 09/08/16 09/08/16 06:59 18:59 Intake Total 680 Balance 680 - Medications Medications: Current Medications Aspirin (Aspirin Chewable) 81 mg PEG DAILY [facility] Last Admin: 09/07/16 09:56 Dose: 81 mg Carvedilol (Coreg) 3.125 mg PEG BID [facility] Last Admin: 09/07/16 18:11 Dose: 3.125 mg Clopidogrel Bisulfate (Plavix) 75 mg PEG DAILY [facility] Last Admin: 09/07/16 09:56 Dose: 75 mg Enoxaparin Sodium (Lovenox) 30 mg SC DAILY [facility] Last Admin: 09/07/16 09:57 Dose: 30 mg Famotidine (Pepcid) 20 mg PEG BID [facility] Last Admin: 09/07/16 18:11 Dose: 20 mg Finasteride (Proscar) 5 mg PO DAILY [facility] Last Admin: 09/07/16 09:56 Dose: 5 mg Levetiracetam (Keppra) 500 mg PO BID [facility] Last Admin: 09/07/16 18:11 Dose: 500 mg Polyethylene Glycol (Miralax) 17 gm PO QPM [facility] Last Admin: 07/22/16 17:46 Dose: 17 gm Tamsulosin HCl (Flomax) 0.4 mg PO DAILY [facility] Last Admin: 09/07/16 09:57 Dose: 0.4 mg - Labs Labs: 09/07/16 08:26 09/07/16 08:26 PT 10.6 SECONDS (9.7-12.2) 11/24/15 14:10 INR 1.0 11/24/15 14:10 APTT 25 SECONDS (21-34) 11/24/15 14:10 - Constitutional Appears: No Acute Distress - Head Exam Head Exam: ATRAUMATIC, NORMOCEPHALIC - Eye Exam Eye Exam: EOMI, Normal appearance - ENT Exam ENT Exam: Mucous Membranes Moist - Neck Exam Additional comments: trach collar in place, secretions minimal - Respiratory Exam Respiratory Exam: Clear to Ausculation Bilateral Additional comments: upper airway secretions creating course lung sounds - Cardiovascular Exam Cardiovascular Exam: REGULAR RHYTHM, +S1, +S2 - GI/Abdominal Exam GI & Abdominal Exam: Soft, Normal Bowel Sounds. absent: Distended Additional comments: PEG site clean - Exam Additional comments: [place] catheter in place, draining urine - Extremities Exam Extremities Exam: Normal Capillary Refill. absent: Pedal Edema Additional comments: SCDs on B/L lower extemities - Back Exam Additional comments: Sacral decubitis ulcer - Neurological Exam Neurological Exam: Awake - Skin Skin Exam: Dry, Warm Assessment and Plan - Assessment and Plan (Free Text) Assessment: (1) Anoxic encephalopathy 09/08: 11.4 WBC yesterday; will do f/u CBC on 09/09 Continue to monitor weekly labs on Sundays, continue with q2h turning, therapy, feeds through PEG site and suctioning trach routinely Pending correction facility placement (2) Bilateral Lower Extremity Edema- resolved 09/01: one time dose of Lasix 20mg IV (3) Urinary Retention 09/08: [place] catheter in place, urine draining 09/02: Pt not retaining, [place] catheter was loose on early inspection in the morning, corrected on re-examination 08/26: Changing baker back to [place] catheter, voiding trial and serial bladder scans (150 cc and 89 cc - no retention) 08/25: Continue Current management 08/23: Resolved - [place] has been reinserted to prevent soiling of the skin 08/18: I's & O's will consider removing urinary catheter and do voiding trial Continue weekly labs Continue monitoring patient and vitals (4) Abdominal Distension PEG tube intact and functioning Continue to monitor 08/18: Resolved. Tube feeds 50cc/hr continuously- reduced from 60cc/h due to overflow on 09/04/16 (5) Failure to thrive 09/06: Continue Current management- Continuous Tube feeds 50cc/hr. 250cc of free water flush q8H Measure weight weekly. (6) Respiratory failure 09/06: Continue Current management of trach collar and secretions- continue to suction IV Primaxin completed s/p trach Monitor (7) CAD (coronary artery disease) 09/06: Continue Current management s/p cardiac stents on 06/13/15 Continue ASA 81mg via PEG daily Carvedilol 3.125mg PO BID Continue Plavix 75mg via PEG daily (8) Seizures 09/06: Continue Current management Continue Keppra 500mg PEG BID for seizure prophylaxis Phenytoin d/c due to continued inc in LFT's on 07/21/16. (9) Sacral Ulcers 09/06: small sacral ulcer- continue with local wound care and repositioning, pink wound base 08/31: Small stage 2 sacral ulcer. 3 x 0.2 cm, sensicare protective ointment 3x/ day and frequent repositioning 08/26: ~1.5 cm abrasion in sacral region, Wound Care Nurse asked to see pt, He said "he will take care of it" 08/25: Abrasion now 15mm, will speak to wound care for recommendations, Again pt turning Q2H was stressed to nursing staff 08/24: Abrasion is now ~ 10 mm, turning the pt Q2H was stressed to nursing staff to prevent ulceration 08/20: Small 1 mm abrasion in sacral area. Informed nursing and instructed them to turn him intermittently. Nursing to use barrier to prevent further progression of abrasion 08/19:Resolved Continue to turn patient q2hrs Monitor with skin checks (10) Prophylactic measure Pepcid 20 mg PEG BID lovenox 30mg SC daily SCDs Pressure offloading Heel Boots in place <Nathaniel Beth - Last Filed: 09/08/16 17:57> Objective - Vital Signs/Intake and Output Vital Signs (last 24 hours): Temp Pulse Resp BP Pulse Ox 98.4 F 84 20 116/76 100 09/08/16 16:54 09/08/16 16:54 09/08/16 16:54 09/08/16 16:54 09/08/16 16:54 Intake and Output: 09/08/16 09/08/16 06:59 18:59 Intake Total 680 680 Balance 680 680 - Medications Medications: Current Medications Aspirin (Aspirin Chewable) 81 mg PEG DAILY [facility] Last Admin: 09/08/16 09:48 Dose: 81 mg Carvedilol (Coreg) 3.125 mg PEG BID [facility] Last Admin: 09/08/16 09:48 Dose: 3.125 mg Clopidogrel Bisulfate (Plavix) 75 mg PEG DAILY [facility] Last Admin: 09/08/16 09:48 Dose: 75 mg Enoxaparin Sodium (Lovenox) 30 mg SC DAILY [facility] Last Admin: 09/08/16 09:48 Dose: 30 mg Famotidine (Pepcid) 20 mg PEG BID [facility] Last Admin: 09/08/16 09:50 Dose: 20 mg Finasteride (Proscar) 5 mg PO DAILY [facility] Last Admin: 09/08/16 09:48 Dose: 5 mg Levetiracetam (Keppra) 500 mg PO BID [facility] Last Admin: 09/08/16 09:48 Dose: 500 mg Polyethylene Glycol (Miralax) 17 gm PO QPM [facility] Last Admin: 07/22/16 17:46 Dose: 17 gm Tamsulosin HCl (Flomax) 0.4 mg PO DAILY [facility] Last Admin: 09/08/16 09:48 Dose: 0.4 mg - Labs Labs: 09/07/16 08:26 09/07/16 08:26 PT 10.6 SECONDS (9.7-12.2) 11/24/15 14:10 INR 1.0 11/24/15 14:10 APTT 25 SECONDS (21-34) 11/24/15 14:10 Attending/Attestation - Attestation I have personally seen and examined this patient.: Yes I have fully participated in the care of the patient.: Yes I have reviewed all pertinent clinical information, including history, physical exam and plan: Yes Notes (Text): Patient seen and examined; I agree with the resident's note with the following additions/edits: Patient admitted s/p cardiac arrest, with ensuing anoxic encephalopathy; prolonged hospital course (>1 year) due to inability to find placement; Active issues: Hypoalbuminemia - Downward trending on weekly labs (3.7 -> 3.5 -> 3.3); likely due to protein calorie malnutrition; on idealsource 1.5 tube feeds at 60 cc/hr; will get nutitional re-consult for further recs; Sacral Decubitus Ulcer - Stage 2 fissure, ~3 cm, healing well; continue applying protective ointment and frequent turning; no heel ulcers on my exam today; Recurrent UTI - Mild leukocytosis; last UTI treatment completed last month; now with foul smelling urine; has condom catheter; will get UA and culture; CAD - Stable; BP controlled; continue ASA/plavix and coreg 3.125 bid; 09/08/16 17:36
[2016-09-08] MEDS: Enoxaparin 30 mg Syringe SC SCH (09:48)
--- NOTE | 2016-09-09 07:34 | CP.PCM.PN ---
<Saurabh Carmichael - Last Filed: 09/09/16 16:00> Subjective - Date & Time of Evaluation Date of Evaluation: 09/09/16 Time of Evaluation: 07:10 - Subjective Subjective: PGY1 Medicine Progress Note for Dr. Beth's Service: Patient seen and examined at bedside. Patient resting comfortably in bed. No events overnight per nursing. No reported difficulties with feedings via PEG. [place] catheter in place. Objective - Vital Signs/Intake and Output Vital Signs (last 24 hours): Temp Pulse Resp BP Pulse Ox 98 F 83 20 118/76 99 09/08/16 23:50 09/08/16 23:50 09/08/16 23:50 09/08/16 23:50 09/08/16 23:50 Intake and Output: 09/09/16 09/09/16 06:59 18:59 Intake Total 730 Output Total 500 Balance 230 - Medications Medications: Current Medications Aspirin (Aspirin Chewable) 81 mg PEG DAILY [facility] Last Admin: 09/08/16 09:48 Dose: 81 mg Carvedilol (Coreg) 3.125 mg PEG BID [facility] Last Admin: 09/08/16 18:03 Dose: 3.125 mg Clopidogrel Bisulfate (Plavix) 75 mg PEG DAILY [facility] Last Admin: 09/08/16 09:48 Dose: 75 mg Enoxaparin Sodium (Lovenox) 30 mg SC DAILY [facility] Last Admin: 09/08/16 09:48 Dose: 30 mg Famotidine (Pepcid) 20 mg PEG BID [facility] Last Admin: 09/08/16 18:03 Dose: 20 mg Finasteride (Proscar) 5 mg PO DAILY [facility] Last Admin: 09/08/16 09:48 Dose: 5 mg Levetiracetam (Keppra) 500 mg PO BID [facility] Last Admin: 09/08/16 18:03 Dose: 500 mg Polyethylene Glycol (Miralax) 17 gm PO QPM [facility] Last Admin: 07/22/16 17:46 Dose: 17 gm Tamsulosin HCl (Flomax) 0.4 mg PO DAILY [facility] Last Admin: 09/08/16 09:48 Dose: 0.4 mg - Labs Labs: 09/07/16 08:26 09/07/16 08:26 PT 10.6 SECONDS (9.7-12.2) 01/02/16 14:10 INR 1.0 11/24/15 14:10 APTT 25 SECONDS (21-34) 11/24/15 14:10 - Constitutional Appears: No Acute Distress - Head Exam Head Exam: ATRAUMATIC, NORMOCEPHALIC - Eye Exam Eye Exam: EOMI, Normal appearance - ENT Exam ENT Exam: Mucous Membranes Moist - Neck Exam Additional comments: trach collar in place, secretions are minimal - Respiratory Exam Respiratory Exam: Clear to Ausculation Bilateral Additional comments: upper airway secretions creating course lung sounds - Cardiovascular Exam Cardiovascular Exam: REGULAR RHYTHM, +S1, +S2 - GI/Abdominal Exam GI & Abdominal Exam: Soft, Normal Bowel Sounds. absent: Distended, Firm Additional comments: PEG site clean - Exam Additional comments: [place] catheter in place, draining urine - Extremities Exam Extremities Exam: Normal Capillary Refill. absent: Pedal Edema - Back Exam Additional comments: Sacral decubitis ulcer, pink base - Neurological Exam Neurological Exam: Awake - Skin Skin Exam: Dry, Intact, Normal Color, Warm Assessment and Plan - Assessment and Plan (Free Text) Assessment: Assessment: Anoxic encephalopathy 09/09: 8.4 WBC; leukocytosis resolved Continue to monitor weekly labs on Sundays, continue with q2h turning, therapy, feeds through PEG site and suctioning trach routinely Pending [facility] facility placement Hypoalbuminemia Downtrending over course of weekly labs; (3.3 on 09-07, 3.7 on 08/24) - Dietary recommended 30ml Prostat as dietary supplement Sacral Ulcers 09/08: Stage 2 fissure, ~3 cm; continue ointment and frequent turning 09/06: small sacral ulcer- continue with local wound care and repositioning, pink wound base 08/31: Small stage 2 sacral ulcer. 3 x 0.2 cm, sensicare protective ointment 3x/ day and frequent repositioning 08/26: ~1.5 cm abrasion in sacral region, Wound Care Nurse asked to see pt, He said "he will take care of it" 08/25: Abrasion now 15mm, will speak to wound care for recommendations, Again pt turning Q2H was stressed to nursing staff 08/24: Abrasion is now ~ 10 mm, turning the pt Q2H was stressed to nursing staff to prevent ulceration 08/20: Small 1 mm abrasion in sacral area. Informed nursing and instructed them to turn him intermittently. Nursing to use barrier to prevent further progression of abrasion 08/19:Resolved Continue to turn patient q2hrs Monitor with skin checks Bilateral Lower Extremity Edema- resolved 09/01: one time dose of Lasix 20mg IV Urinary Retention 09/08: [place] catheter in place, foul smelling urine draining; condom catheter, - f/u UA and culture 09/02: Pt not retaining, [place] catheter was loose on early inspection in the morning, corrected on re-examination 08/26: Changing baker back to [place] catheter, voiding trial and serial bladder scans (150 cc and 89 cc - no retention) 08/25: Continue Current management 08/23: Resolved - [place] has been reinserted to prevent soiling of the skin 08/18: I's & O's will consider removing urinary catheter and do voiding trial Continue weekly labs Continue monitoring patient and vitals Abdominal Distension PEG tube intact and functioning Continue to monitor 08/18: Resolved. Tube feeds 50cc/hr continuously- reduced from 60cc/h due to overflow on 09/04/16 Failure to thrive 09/06: Continue Current management- Continuous Tube feeds 50cc/hr. 250cc of free water flush q8H Measure weight weekly. Respiratory failure 09/06: Continue Current management of trach collar and secretions- continue to suction IV Primaxin completed s/p trach Monitor CAD (coronary artery disease) 09/06: Continue Current management s/p cardiac stents on 06/13/15 Continue ASA 81mg via PEG daily Carvedilol 3.125mg PO BID Continue Plavix 75mg via PEG daily Seizures 09/06: Continue Current management Continue Keppra 500mg PEG BID for seizure prophylaxis Phenytoin d/c due to continued inc in LFT's on 07/21/16. Prophylactic measure Pepcid 20 mg PEG BID lovenox 30mg SC daily SCDs Pressure offloading Heel Boots in place <Nathaniel Beth - Last Filed: 09/09/16 19:27> Objective - Vital Signs/Intake and Output Vital Signs (last 24 hours): Temp Pulse Resp BP Pulse Ox 98.3 F 60 18 119/75 100 09/09/16 15:00 09/09/16 15:00 09/09/16 15:00 09/09/16 15:00 09/09/16 15:00 Intake and Output: 09/09/16 09/10/16 18:59 06:59 Intake Total 1360 Output Total 1100 Balance 260 - Medications Medications: Current Medications Aspirin (Aspirin Chewable) 81 mg PEG DAILY [facility] Last Admin: 09/09/16 11:03 Dose: 81 mg Carvedilol (Coreg) 3.125 mg PEG BID [facility] Last Admin: 09/09/16 19:01 Dose: 3.125 mg Clopidogrel Bisulfate (Plavix) 75 mg PEG DAILY [facility] Last Admin: 09/09/16 11:03 Dose: 75 mg Enoxaparin Sodium (Lovenox) 30 mg SC DAILY [facility] Last Admin: 09/09/16 11:03 Dose: 30 mg Famotidine (Pepcid) 20 mg PEG BID [facility] Last Admin: 09/09/16 19:01 Dose: 20 mg Finasteride (Proscar) 5 mg PO DAILY [facility] Last Admin: 09/09/16 11:03 Dose: 5 mg Levetiracetam (Keppra) 500 mg PO BID [facility] Last Admin: 09/09/16 19:01 Dose: 500 mg Polyethylene Glycol (Miralax) 17 gm PO QPM [facility] Last Admin: 07/22/16 17:46 Dose: 17 gm Tamsulosin HCl (Flomax) 0.4 mg PO DAILY [facility] Last Admin: 09/09/16 11:03 Dose: 0.4 mg - Labs Labs: 09/09/16 08:13 09/07/16 08:26 PT 10.6 SECONDS (9.7-12.2) 11/24/15 14:10 INR 1.0 11/24/15 14:10 APTT 25 SECONDS (21-34) 11/24/15 14:10 Attending/Attestation - Attestation I have personally seen and examined this patient.: Yes I have fully participated in the care of the patient.: Yes I have reviewed all pertinent clinical information, including history, physical exam and plan: Yes Notes (Text): Patient seen and examined; I agree with the resident's note as above with the following additions/edits: Patient admitted s/p cardiac arrest with ensuing anoxic encephalopathy; prolonged hospital course due to placement issues; Active issues include: Hypernatremia - Resolved with tube feeds at 60 cc/hr and free H20 flushes 250 cc q8h; Leukocytosis - Resolved on today's cbc; but will check UA/culture due to foul smelling urine; Hypoalbuminemia - Progressive over past few weeks; dietary consult appreciated; starting prostat once daily from today; Sacral decubitus ulcer - 3 cm fissure, healing well with protective ointment, frequent turning; continue; CAD - Continue ASA, plavix, coreg 3.125 bid. 09/09/16 19:14
[2016-09-09 08:32] LABS: BASO % 0.2 % (0.0-2.0); EOS # 0.3 K/uL (0.0-0.7); HEMOGLOBIN 11.6 g/dL (12.0-18.0); LYMPH # 1.7 K/uL (1.0-4.3); LYMPH % 20.6 % (20.0-40.0); MEAN CELL VOLUME 88.5 fL (80.0-94.0); MEAN CORPUSCULAR HEMOGLOBIN 28.9 pg (27.0-31.0); MEAN CORPUSCULAR HGB CONC 32.7 g/dL (33.0-37.0); MEAN PLATELET VOLUME 9.4 fL (7.2-11.7); MONO # 0.9 K/uL (0.0-0.8); MONO % 10.3 % (0.0-10.0); NEUT # 5.5 K/uL (1.8-7.0); NEUT % 64.9 % (50.0-75.0); RBC 4.01 Mil/uL (4.40-5.90); RED CELL DISTRIBUTION WIDTH 14.3 % (11.5-14.5); WHITE BLOOD COUNT 8.5 K/uL (4.8-10.8)
[2016-09-09] MEDS: Enoxaparin 30 mg Syringe SC SCH (11:03)
[2016-09-10 01:12] LABS: URINE BACTERIA RARE (<OCC); URINE BILIRUBIN NEGATIVE (NEGATIVE); URINE BLOOD NEGATIVE (NEGATIVE); URINE CLARITY Clear (Clear); URINE COLOR Yellow (YELLOW); URINE GLUCOSE (UA) NORMAL (Normal); URINE LEUKOCYTE ESTERASE NEG Leu/uL (Negative); URINE PROTEIN NEGATIVE (NEGATIVE); URINE UROBILINOGEN NORMAL mg/dL (0.2-1.0)
--- NOTE | 2016-09-10 07:43 | CP.PCM.PN ---
<Saurabh Carmichael - Last Filed: 09/10/16 14:48> Subjective - Date & Time of Evaluation Date of Evaluation: 09/10/16 Time of Evaluation: 07:00 - Subjective Subjective: Pt seen and examined at bedside. Pt found resting comfortably in bed. Nursing reports no acute events overnight. PEG feedings supplemented with protein per dietary. Tracheal secretions thick, but minimal. Objective - Vital Signs/Intake and Output Vital Signs (last 24 hours): Temp Pulse Resp BP Pulse Ox 98.2 F 83 20 121/80 99 09/09/16 23:32 09/09/16 23:32 09/09/16 23:32 09/09/16 23:32 09/09/16 23:32 Intake and Output: 09/10/16 09/10/16 06:59 18:59 Intake Total 1160 Output Total 750 Balance 410 - Medications Medications: Current Medications Aspirin (Aspirin Chewable) 81 mg PEG DAILY [facility] Last Admin: 09/09/16 11:03 Dose: 81 mg Carvedilol (Coreg) 3.125 mg PEG BID [facility] Last Admin: 09/09/16 19:01 Dose: 3.125 mg Clopidogrel Bisulfate (Plavix) 75 mg PEG DAILY [facility] Last Admin: 09/09/16 11:03 Dose: 75 mg Enoxaparin Sodium (Lovenox) 30 mg SC DAILY [facility] Last Admin: 09/09/16 11:03 Dose: 30 mg Famotidine (Pepcid) 20 mg PEG BID [facility] Last Admin: 09/09/16 19:01 Dose: 20 mg Finasteride (Proscar) 5 mg PO DAILY [facility] Last Admin: 09/09/16 11:03 Dose: 5 mg Levetiracetam (Keppra) 500 mg PO BID [facility] Last Admin: 09/09/16 19:01 Dose: 500 mg Polyethylene Glycol (Miralax) 17 gm PO QPM [facility] Last Admin: 07/22/16 17:46 Dose: 17 gm Tamsulosin HCl (Flomax) 0.4 mg PO DAILY [facility] Last Admin: 09/09/16 11:03 Dose: 0.4 mg - Labs Labs: 09/09/16 08:13 09/07/16 08:26 PT 10.6 SECONDS (9.7-12.2) 11/24/15 14:10 INR 1.0 11/24/15 14:10 APTT 25 SECONDS (21-34) 11/24/15 14:10 - Constitutional Appears: No Acute Distress - Head Exam Head Exam: ATRAUMATIC, NORMOCEPHALIC - Eye Exam Eye Exam: EOMI, Normal appearance - ENT Exam ENT Exam: Mucous Membranes Moist - Neck Exam Additional comments: trach collar in place, secretions are thick, but minimal - Respiratory Exam Respiratory Exam: Clear to Ausculation Bilateral. absent: Rales, Rhonchi, Wheezes - Cardiovascular Exam Cardiovascular Exam: REGULAR RHYTHM, +S1, +S2 - GI/Abdominal Exam GI & Abdominal Exam: Soft, Normal Bowel Sounds Additional comments: PEG site clean; no signs of infection - Exam Additional comments: [place] catheter in place, draining urine - Extremities Exam Extremities Exam: Normal Capillary Refill. 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 3 x 0.2 cm, sensicare protective ointment 3x/ day and frequent repositioning 08/26: ~1.5 cm abrasion in sacral region, Wound Care Nurse asked to see pt, He said "he will take care of it" 08/25: Abrasion now 15mm, will speak to wound care for recommendations, Again pt turning Q2H was stressed to nursing staff 08/24: Abrasion is now ~ 10 mm, turning the pt Q2H was stressed to nursing staff to prevent ulceration 08/20: Small 1 mm abrasion in sacral area. Informed nursing and instructed them to turn him intermittently. Nursing to use barrier to prevent further progression of abrasion 08/19:Resolved Continue to turn patient q2hrs Monitor with skin checks Bilateral Lower Extremity Edema- resolved 09/01: one time dose of Lasix 20mg IV Urinary Retention 09/08: [place] catheter in place, foul smelling urine draining; condom catheter, - 09/10: UA clean - f/u culture 09/02: Pt not retaining, [place] catheter was loose on early inspection in the morning, corrected on re-examination 08/26: Changing baker back to [place] catheter, voiding trial and serial bladder scans (150 cc and 89 cc - no retention) 08/25: Continue Current management 08/23: Resolved - Baker has been reinserted to prevent soiling of the skin 08/18: I's & O's will consider removing urinary catheter and do voiding trial Continue weekly labs Continue monitoring patient and vitals Abdominal Distension PEG tube intact and functioning 09/09: Pt getting tube feeds at 60cc/hr; free H20 flushes 250 cc Q8H Continue to monitor Failure to thrive 09/06: Continue Current management- Continuous Tube feeds 50cc/hr. 250cc of free water flush q8H Measure weight weekly. Respiratory failure 09/06: Continue Current management of trach collar and secretions- continue to suction IV Primaxin completed s/p trach Monitor CAD (coronary artery disease) 09/06: Continue Current management s/p cardiac stents on 06/13/15 Continue ASA 81mg via PEG daily Carvedilol 3.125mg PO BID Continue Plavix 75mg via PEG daily Seizures 09/06: Continue Current management Continue Keppra 500mg PEG BID for seizure prophylaxis Phenytoin d/c due to continued inc in LFT's on 07/21/16. Prophylactic measure Pepcid 20 mg PEG BID lovenox 30mg SC daily SCDs Pressure offloading Heel Boots in place <Nathaniel Beth - Last Filed: 09/10/16 18:37> Objective - Vital Signs/Intake and Output Vital Signs (last 24 hours): Temp Pulse Resp BP Pulse Ox 99.0 F 89 20 115/78 97 09/10/16 15:53 09/10/16 15:53 09/10/16 15:53 09/10/16 15:53 09/10/16 15:53 Intake and Output: 10/19/16 10/19/16 06:59 18:59 Intake Total 1160 730 Output Total 750 800 Balance 410 -70 - Medications Medications: Current Medications Aspirin (Aspirin Chewable) 81 mg PEG DAILY [facility] Last Admin: 09/10/16 10:28 Dose: 81 mg Carvedilol (Coreg) 3.125 mg PEG BID [facility] Last Admin: 09/10/16 17:45 Dose: 3.125 mg Clopidogrel Bisulfate (Plavix) 75 mg PEG DAILY [facility] Last Admin: 09/10/16 10:28 Dose: 75 mg Enoxaparin Sodium (Lovenox) 30 mg SC DAILY [facility] Last Admin: 09/10/16 10:28 Dose: 30 mg Famotidine (Pepcid) 20 mg PEG BID [facility] Last Admin: 09/10/16 17:45 Dose: 20 mg Finasteride (Proscar) 5 mg PO DAILY [facility] Last Admin: 09/10/16 10:28 Dose: 5 mg Levetiracetam (Keppra) 500 mg PO BID [facility] Last Admin: 09/10/16 17:45 Dose: 500 mg Polyethylene Glycol (Miralax) 17 gm PO QPM [facility] Last Admin: 07/22/16 17:46 Dose: 17 gm Tamsulosin HCl (Flomax) 0.4 mg PO DAILY [facility] Last Admin: 09/10/16 10:28 Dose: 0.4 mg - Labs Labs: 09/09/16 08:13 09/07/16 08:26 PT 10.6 SECONDS (9.7-12.2) 11/24/15 14:10 INR 1.0 11/24/15 14:10 APTT 25 SECONDS (21-34) 11/24/15 14:10 Attending/Attestation - Attestation I have personally seen and examined this patient.: Yes I have fully participated in the care of the patient.: Yes I have reviewed all pertinent clinical information, including history, physical exam and plan: Yes Notes (Text): Patient seen and examined; I agree with the resident's note as above with the following additions/edits: Patient admitted s/p cardiac arrest with ensuing anoxic encephalopathy; prolonged hospital course due to placement issues; Active issues include: Hypernatremia - Resolved with tube feeds at 60 cc/hr and free H20 flushes 250 cc q8h; Leukocytosis - Resolved on yesterday's cbc; UA negative for infection; Hypoalbuminemia - Progressive over past few weeks; dietary consult appreciated; started prostat once daily; Sacral decubitus ulcer - 3 cm fissure, healing well with protective ointment, frequent turning; continue; CAD - Continue ASA, plavix, coreg 3.125 bid. 09/10/16 18:33
[2016-09-10] MEDS: Enoxaparin 30 mg Syringe SC SCH (10:28)
--- NOTE | 2016-09-11 09:12 | CP.PCM.PN ---
Subjective - Date & Time of Evaluation Date of Evaluation: 09/11/16 Time of Evaluation: 07:00 - Subjective Subjective: Pt seen and examined at bedside. He was resting comfortably in bed. Nursing reports no acute events overnight. PEG tube site clean. Tracheal secretions are thinner than yesterday, still minimal. Objective - Vital Signs/Intake and Output Vital Signs (last 24 hours): Temp Pulse Resp BP Pulse Ox 97.3 F L 75 20 109/65 100 09/11/16 08:00 09/11/16 08:00 09/11/16 08:00 09/11/16 08:00 09/11/16 08:00 Intake and Output: 09/11/16 09/11/16 06:59 18:59 Intake Total 1280 Output Total 400 Balance 880 - Medications Medications: Current Medications Aspirin (Aspirin Chewable) 81 mg PEG DAILY [facility] Last Admin: 09/10/16 10:28 Dose: 81 mg Carvedilol (Coreg) 3.125 mg PEG BID [facility] Last Admin: 09/10/16 17:45 Dose: 3.125 mg Clopidogrel Bisulfate (Plavix) 75 mg PEG DAILY [facility] Last Admin: 09/10/16 10:28 Dose: 75 mg Enoxaparin Sodium (Lovenox) 30 mg SC DAILY [facility] Last Admin: 09/10/16 10:28 Dose: 30 mg Famotidine (Pepcid) 20 mg PEG BID [facility] Last Admin: 09/10/16 17:45 Dose: 20 mg Finasteride (Proscar) 5 mg PO DAILY [facility] Last Admin: 09/10/16 10:28 Dose: 5 mg Levetiracetam (Keppra) 500 mg PO BID [facility] Last Admin: 09/10/16 17:45 Dose: 500 mg Polyethylene Glycol (Miralax) 17 gm PO QPM [facility] Last Admin: 07/22/16 17:46 Dose: 17 gm Tamsulosin HCl (Flomax) 0.4 mg PO DAILY [facility] Last Admin: 09/10/16 10:28 Dose: 0.4 mg - Labs Labs: 09/09/16 08:13 09/07/16 08:26 PT 10.6 SECONDS (9.7-12.2) 11/24/15 14:10 INR 1.0 11/24/15 14:10 APTT 25 SECONDS (21-34) 11/24/15 14:10 - Head Exam Head Exam: ATRAUMATIC, NORMOCEPHALIC - Eye Exam Eye Exam: EOMI, Normal appearance - ENT Exam ENT Exam: Mucous Membranes Moist - Neck Exam Additional comments: trach collar in place, secretions are thick, but minimal - Respiratory Exam Respiratory Exam: Clear to Ausculation Bilateral. absent: Rales, Rhonchi, Wheezes - Cardiovascular Exam Cardiovascular Exam: REGULAR RHYTHM, +S1, +S2 - GI/Abdominal Exam GI & Abdominal Exam: Soft, Normal Bowel Sounds Additional comments: PEG site clean; no signs of infection - Exam Additional comments: [place] catheter in place, draining urine - Extremities Exam Extremities Exam: Normal Capillary Refill. 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 3 x 0.2 cm, sensicare protective ointment 3x/ day and frequent repositioning 08/26: ~1.5 cm abrasion in sacral region, Wound Care Nurse asked to see pt, He said "he will take care of it" 08/25: Abrasion now 15mm, will speak to wound care for recommendations, Again pt turning Q2H was stressed to nursing staff 08/24: Abrasion is now ~ 10 mm, turning the pt Q2H was stressed to nursing staff to prevent ulceration 08/20: Small 1 mm abrasion in sacral area. Informed nursing and instructed them to turn him intermittently. Nursing to use barrier to prevent further progression of abrasion 08/19:Resolved Continue to turn patient q2hrs Monitor with skin checks Bilateral Lower Extremity Edema- resolved 09/01: one time dose of Lasix 20mg IV Urinary Retention 09/08: [place] catheter in place, foul smelling urine draining; condom catheter, - 09/10: UA clean - 09/11: Urinalysis shows Gram Neg Lyle 09/02: Pt not retaining, [place] catheter was loose on early inspection in the morning, corrected on re-examination 08/26: Changing baker back to [place] catheter, voiding trial and serial bladder scans (150 cc and 89 cc - no retention) 08/25: Continue Current management 08/23: Resolved - Baker has been reinserted to prevent soiling of the skin 08/18: I's & O's will consider removing urinary catheter and do voiding trial Continue weekly labs Continue monitoring patient and vitals Abdominal Distension PEG tube intact and functioning 09/09: Pt getting tube feeds at 60cc/hr; free H20 flushes 250 cc Q8H Continue to monitor Failure to thrive 09/06: Continue Current management- Continuous Tube feeds 50cc/hr. 250cc of free water flush q8H Measure weight weekly. Respiratory failure 09/06: Continue Current management of trach collar and secretions- continue to suction IV Primaxin completed s/p trach Monitor CAD (coronary artery disease) 09/06: Continue Current management s/p cardiac stents on 06/13/15 Continue ASA 81mg via PEG daily Carvedilol 3.125mg PO BID Continue Plavix 75mg via PEG daily Seizures 09/06: Continue Current management Continue Keppra 500mg PEG BID for seizure prophylaxis Phenytoin d/c due to continued inc in LFT's on 07/21/16. Prophylactic measure Pepcid 20 mg PEG BID lovenox 30mg SC daily SCDs Pressure offloading Heel Boots in place
[2016-09-11] MEDS: Enoxaparin 30 mg Syringe SC SCH (10:09)
[2016-09-12] MEDS: Enoxaparin 30 mg Syringe SC SCH (10:00)
--- NOTE | 2016-09-12 15:58 | CP.PCM.PN ---
<Saurabh Carmichael - Last Filed: 09/12/16 15:57> Subjective - Date & Time of Evaluation Date of Evaluation: 09/12/16 Time of Evaluation: 07:30 - Subjective Subjective: Pt seen and examined at bedside. Pt found resting comfortably. Nursing reports no acute events overnight. [place] catheter still in place, draining yellow clear urine. Objective - Vital Signs/Intake and Output Vital Signs (last 24 hours): Temp Pulse Resp BP Pulse Ox 98.1 F 79 18 91/61 L 98 09/12/16 08:00 09/12/16 08:00 09/12/16 08:00 09/12/16 08:00 09/12/16 08:00 Intake and Output: 09/12/16 09/12/16 06:59 18:59 Intake Total 580 730 Output Total 1000 200 Balance -420 530 - Medications Medications: Current Medications Enoxaparin Sodium (Lovenox) 30 mg SC DAILY [facility] Last Admin: 09/12/16 10:00 Dose: 30 mg Polyethylene Glycol (Miralax) 17 gm PO QPM [facility] Last Admin: 07/22/16 17:46 Dose: 17 gm - Labs Labs: 09/09/16 08:13 09/07/16 08:26 PT 10.6 SECONDS (9.7-12.2) 11/24/15 14:10 INR 1.0 11/24/15 14:10 APTT 25 SECONDS (21-34) 11/24/15 14:10 <Nathaniel Beth - Last Filed: 09/12/16 18:44> Objective - Vital Signs/Intake and Output Vital Signs (last 24 hours): Temp Pulse Resp BP Pulse Ox 98.2 F 72 20 118/76 100 09/12/16 16:00 09/12/16 16:00 09/12/16 16:00 09/12/16 16:00 09/12/16 16:00 Intake and Output: 09/12/16 09/12/16 06:59 18:59 Intake Total 580 1460 Output Total 1000 200 Balance -420 1260 - Medications Medications: Current Medications Enoxaparin Sodium (Lovenox) 30 mg SC DAILY [facility] Last Admin: 09/12/16 10:00 Dose: 30 mg Polyethylene Glycol (Miralax) 17 gm PO QPM [facility] Last Admin: 07/22/16 17:46 Dose: 17 gm - Labs Labs: 09/09/16 08:13 09/07/16 08:26 PT 10.6 SECONDS (9.7-12.2) 11/24/15 14:10 INR 1.0 11/24/15 14:10 APTT 25 SECONDS (21-34) 11/24/15 14:10 Attending/Attestation - Attestation I have personally seen and examined this patient.: Yes I have fully participated in the care of the patient.: Yes I have reviewed all pertinent clinical information, including history, physical exam and plan: Yes Notes (Text): Patient seen and examined; I agree with the resident's note as above with the following additions/edits: Patient admitted s/p cardiac arrest with ensuing anoxic encephalopathy; prolonged hospital course due to placement issues; Active issues include: Hypernatremia - Resolved with tube feeds at 60 cc/hr and free H20 flushes 250 cc q8h; however, need to monitor closely with weekly chem panel; Leukocytosis - Resolved on latest cbc; UA negative for infection, urine culture with <10,000 CFU organism; Hypoalbuminemia - Progressive over past few weeks; dietary consult appreciated; started prostat once daily; Sacral decubitus ulcer - 3 cm fissure, healing well with protective ointment, frequent turning; continue; CAD - Continue ASA, plavix, coreg 3.125 bid. 09/12/16 18:43
--- NOTE | 2016-09-13 06:36 | CP.PCM.PN ---
Subjective - Date & Time of Evaluation Date of Evaluation: 09/13/16 Time of Evaluation: 06:00 - Subjective Subjective: Hospitalist Note: Dr. Beth's service Patient seen and evaluated at bedside. Patient resting comfortably. PEG tube and [place] catheter in place. No adverse events over night per nursing. Objective - Vital Signs/Intake and Output Vital Signs (last 24 hours): Temp Pulse Resp BP Pulse Ox 98.6 F 72 20 116/78 100 09/13/16 00:00 09/13/16 00:38 09/13/16 00:00 09/13/16 00:00 09/13/16 00:00 Intake and Output: 09/12/16 09/13/16 18:59 06:59 Intake Total 1460 Output Total 200 Balance 1260 - Medications Medications: Current Medications Enoxaparin Sodium (Lovenox) 30 mg SC DAILY [facility] Last Admin: 09/12/16 10:00 Dose: 30 mg Polyethylene Glycol (Miralax) 17 gm PO QPM [facility] Last Admin: 07/22/16 17:46 Dose: 17 gm - Labs Labs: 09/09/16 08:13 09/07/16 08:26 PT 10.6 SECONDS (9.7-12.2) 11/24/15 14:10 INR 1.0 11/24/15 14:10 APTT 25 SECONDS (21-34) 11/24/15 14:10 - Constitutional Appears: Non-toxic, No Acute Distress - Head Exam Head Exam: ATRAUMATIC, NORMAL INSPECTION - Eye Exam Eye Exam: Normal appearance, PERRL Pupil Exam: PERRL - ENT Exam ENT Exam: Mucous Membranes Moist - Respiratory Exam Respiratory Exam: Rhonchi (scant), NORMAL BREATHING PATTERN. absent: Rales, Wheezes - Cardiovascular Exam Cardiovascular Exam: REGULAR RHYTHM, +S1, +S2 - GI/Abdominal Exam GI & Abdominal Exam: Soft, Normal Bowel Sounds. 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 3 x 0.2 cm, sensicare protective ointment 3x/ day and frequent repositioning 08/26: ~1.5 cm abrasion in sacral region, Wound Care Nurse asked to see pt, He said "he will take care of it" 08/25: Abrasion now 15mm, will speak to wound care for recommendations, Again pt turning Q2H was stressed to nursing staff 08/24: Abrasion is now ~ 10 mm, turning the pt Q2H was stressed to nursing staff to prevent ulceration 08/20: Small 1 mm abrasion in sacral area. Informed nursing and instructed them to turn him intermittently. Nursing to use barrier to prevent further progression of abrasion 08/19:Resolved Continue to turn patient q2hrs Monitor with skin checks Bilateral Lower Extremity Edema- resolved 09/01: one time dose of Lasix 20mg IV Urinary Retention 09/08: [place] catheter in place, foul smelling urine draining; condom catheter, - 09/10: UA clean - 09/11: Urinalysis shows Gram Neg Lyle 09/02: Pt not retaining, [place] catheter was loose on early inspection in the morning, corrected on re-examination 08/26: Changing baker back to [place] catheter, voiding trial and serial bladder scans (150 cc and 89 cc - no retention) 08/25: Continue Current management 08/23: Resolved - [place] has been reinserted to prevent soiling of the skin 08/18: I's & O's will consider removing urinary catheter and do voiding trial Continue weekly labs Continue monitoring patient and vitals Abdominal Distension PEG tube intact and functioning 09/09: Pt getting tube feeds at 60cc/hr; free H20 flushes 250 cc Q8H Continue to monitor Failure to thrive 09/06: Continue Current management- Continuous Tube feeds 50cc/hr. 250cc of free water flush q8H Measure weight weekly. Respiratory failure 09/06: Continue Current management of trach collar and secretions- continue to suction IV Primaxin completed s/p trach Monitor CAD (coronary artery disease) 09/06: Continue Current management s/p cardiac stents on 06/13/15 Continue ASA 81mg via PEG daily Carvedilol 3.125mg PO BID Continue Plavix 75mg via PEG daily Seizures 09/06: Continue Current management Continue Keppra 500mg PEG BID for seizure prophylaxis Phenytoin d/c due to continued inc in LFT's on 07/21/16. Prophylactic measure Pepcid 20 mg PEG BID lovenox 30mg SC daily [facility] Pressure offloading Heel Boots in place
[2016-09-13] MEDS: Enoxaparin 30 mg Syringe SC SCH (10:56)
[2016-09-13] MEDS: levETIRAcetam 100 mg/ml (5ml) Oral Syringe PEG SCH ×2 (11:00→17:26)
--- NOTE | 2016-09-14 00:18 | CP.PCM.PN ---
<Drake Alicea - Last Filed: 09/14/16 06:48> Subjective - Date & Time of Evaluation Date of Evaluation: 09/14/16 Time of Evaluation: 06:00 - Subjective Subjective: Hospitalist Note: Dr. Beth's service Patient seen and evaluated at bedside. Patient is resting comfortably with PEG tube and catheter in place. Offloading boots secure. No adverse events over night per nursing. Objective - Vital Signs/Intake and Output Vital Signs (last 24 hours): Temp Pulse Resp BP Pulse Ox 98.1 F 70 18 122/77 100 09/13/16 16:00 09/13/16 16:00 09/13/16 16:00 09/13/16 16:00 09/13/16 16:00 Intake and Output: 09/13/16 09/14/16 18:59 06:59 Intake Total 730 730 Output Total 300 650 Balance 430 80 - Medications Medications: Current Medications Aspirin (Aspirin) 325 mg PEG DAILY [facility] Last Admin: 09/13/16 10:56 Dose: 325 mg Carvedilol (Coreg) 3.125 mg PEG BID [facility] Last Admin: 09/13/16 17:26 Dose: 3.125 mg Clopidogrel Bisulfate (Plavix) 75 mg PEG DAILY [facility] Last Admin: 09/13/16 10:56 Dose: 75 mg Enoxaparin Sodium (Lovenox) 30 mg SC DAILY [facility] Last Admin: 09/13/16 10:56 Dose: 30 mg Famotidine (Pepcid) 20 mg PEG DAILY [facility] Last Admin: 09/13/16 10:58 Dose: 20 mg Finasteride (Proscar) 5 mg PO DAILY [facility] Last Admin: 09/13/16 10:56 Dose: 5 mg Levetiracetam (Keppra) 500 mg PEG BID [facility] Last Admin: 09/13/16 17:26 Dose: 500 mg Polyethylene Glycol (Miralax) 17 gm PO QPM [facility] Last Admin: 07/22/16 17:46 Dose: 17 gm Tamsulosin HCl (Flomax) 0.4 mg PO DAILY [facility] Last Admin: 09/13/16 10:56 Dose: 0.4 mg - Labs Labs: 09/09/16 08:13 09/07/16 08:26 PT 10.6 SECONDS (9.7-12.2) 11/24/15 14:10 INR 1.0 01/02/16 14:10 APTT 25 SECONDS (21-34) 11/24/15 14:10 - Constitutional Appears: Non-toxic, No Acute Distress - Head Exam Head Exam: ATRAUMATIC, NORMAL INSPECTION - Eye Exam Eye Exam: Normal appearance, PERRL Pupil Exam: PERRL - ENT Exam ENT Exam: Mucous Membranes Moist - Neck Exam Neck Exam: Normal Inspection Additional comments: trach in place - Respiratory Exam Respiratory Exam: Rhonchi (scant), NORMAL BREATHING PATTERN. absent: Rales, Wheezes - Cardiovascular Exam Cardiovascular Exam: REGULAR RHYTHM, +S1, +S2 - GI/Abdominal Exam GI & Abdominal Exam: Soft, Normal Bowel Sounds. absent: Tenderness Additional comments: PEG in place - Exam Exam: NORMAL INSPECTION ([place] cath in place) - Extremities Exam Extremities Exam: Normal Capillary Refill, Normal Inspection - Neurological Exam Neurological Exam: Awake - Skin Skin Exam: Dry, Intact, Warm Assessment and Plan - Assessment and Plan (Free Text) Assessment: Anoxic encephalopathy * Continue to monitor weekly labs on Sundays * continue with q2h turning, * therapy * feeds through PEG site at 60cc/hr * suctioning trach routinely * Pending fdc facility placement Hypoalbuminemia * Downtrending over course of weekly labs; (3.3 on 09-07, 3.7 on 08/24) * Dietary recommended 30ml Prostat as dietary supplement Sacral Ulcers * 09/14: Stage 2 ulcer, still ~3cm; continue oitment and frequent turning. * 09/08: Stage 2 fissure, ~3 cm; continue ointment and frequent turning * 09/06: small sacral ulcer- continue with local wound care and repositioning, pink wound base * 08/31: Small stage 2 sacral ulcer. 3 x 0.2 cm, sensicare protective ointment 3x /day and frequent repositioning * 08/26: ~1.5 cm abrasion in sacral region, Wound Care Nurse asked to see pt, He said "he will take care of it" * 08/25: Abrasion now 15mm, will speak to wound care for recommendations, Again pt turning Q2H was stressed to nursing staff * 08/24: Abrasion is now ~ 10 mm, turning the pt Q2H was stressed to nursing staff to prevent ulceration * 08/20: Small 1 mm abrasion in sacral area. Informed nursing and instructed them to turn him intermittently. * Nursing to use barrier to prevent further progression of abrasion * Continue to turn patient q2hrs * Monitor with skin checks Urinary Retention * [place] cath in place with good output * Good output * UA on 09/10 clean * pt on flomax 0.4 mg PO daily * Proscar 5mg PO daily * monitor I's and O's * Continue monitoring patient and vitals Failure to thrive * 09/14 Continue Current management- * Continuous Tube feeds 60cc/hr. 250cc of free water flush q8H * Measure weight weekly. Respiratory failure * 09/14: Continue Current management of trach collar and secretions- continue to suction * s/p trach * Monitor CAD (coronary artery disease) * 09/14: Continue Current management * s/p cardiac stents on 06/13/15 * Continue ASA 81mg via PEG daily * Carvedilol 3.125mg PO BID * Continue Plavix 75mg via PEG daily Seizures * 09/14: Continue Current management * Continue Keppra 500mg PEG BID for seizure prophylaxis * Phenytoin d/c due to continued inc in LFT's on 07/21/16. Prophylactic measure * Pepcid 20 mg PEG daily * lovenox 30mg SC daily * SCDs * Pressure offloading Heel Boots in place <Nathaniel Beth - Last Filed: 09/14/16 22:05> Objective - Vital Signs/Intake and Output Vital Signs (last 24 hours): Temp Pulse Resp BP Pulse Ox 97.6 F 67 18 113/79 98 09/14/16 15:00 09/14/16 15:00 09/14/16 15:00 09/14/16 15:00 09/14/16 15:00 Intake and Output: 09/14/16 09/15/16 18:59 06:59 Intake Total 730 Output Total 400 Balance 330 - Medications Medications: Current Medications Aspirin (Aspirin) 325 mg PEG DAILY [facility] Last Admin: 09/14/16 11:00 Dose: 325 mg Carvedilol (Coreg) 3.125 mg PEG BID [facility] Last Admin: 09/14/16 17:27 Dose: 3.125 mg Clopidogrel Bisulfate (Plavix) 75 mg PEG DAILY [facility] Last Admin: 09/14/16 11:00 Dose: 75 mg Enoxaparin Sodium (Lovenox) 30 mg SC DAILY [facility] Last Admin: 09/14/16 11:00 Dose: 30 mg Famotidine (Pepcid) 20 mg PEG DAILY [facility] Last Admin: 09/14/16 11:00 Dose: 20 mg Finasteride (Proscar) 5 mg PO DAILY [facility] Last Admin: 09/14/16 11:00 Dose: 5 mg Levetiracetam (Keppra) 500 mg PEG BID [facility] Last Admin: 09/14/16 17:27 Dose: 500 mg Nystatin (Nystatin Oral Susp) 5 ml PO QID [facility] Stop: 09/21/16 22:01 Polyethylene Glycol (Miralax) 17 gm PO QPM [facility] Last Admin: 07/22/16 17:46 Dose: 17 gm Tamsulosin HCl (Flomax) 0.4 mg PO DAILY [facility] Last Admin: 09/14/16 11:00 Dose: 0.4 mg - Labs Labs: 09/14/16 08:07 09/14/16 08:07 PT 10.6 SECONDS (9.7-12.2) 11/24/15 14:10 INR 1.0 11/24/15 14:10 APTT 25 SECONDS (21-34) 11/24/15 14:10 Attending/Attestation - Attestation I have personally seen and examined this patient.: Yes I have fully participated in the care of the patient.: Yes I have reviewed all pertinent clinical information, including history, physical exam and plan: Yes Notes (Text): Patient seen and examined; I agree with the resident's note as above with the following additions: Patient admitted after cardiac arrest, subsequent hypoxic encephalopathy; prolonged hospital course due to inability to find placement; Active issues: Sacral decubitis ulcer - Stage 2; 3 cm fissure, healing well with protective ointment and frequent turning; Hypernatremia - Na 143 today; on tube feeds as 60/hr and free H2O flushes 250 cc q8h; will increase feeds to 65 cc/hr, flushes to 300 cc q8h; Oral Thrush - Start nystatin swab; CAD s/p stent - Continue coreg, ASA, plavix; 09/14/16 22:00
[2016-09-14 08:23] LABS: BASO % 0.4 % (0.0-2.0); EOS # 0.3 K/uL (0.0-0.7); EOS % 3.7 % (0.0-4.0); HEMOGLOBIN 12.5 g/dL (12.0-18.0); LYMPH # 1.9 K/uL (1.0-4.3); LYMPH % 20.6 % (20.0-40.0); MEAN CELL VOLUME 88.1 fL (80.0-94.0); MEAN CORPUSCULAR HEMOGLOBIN 29.4 pg (27.0-31.0); MEAN CORPUSCULAR HGB CONC 33.4 g/dL (33.0-37.0); MEAN PLATELET VOLUME 9.2 fL (7.2-11.7); MONO # 1.1 K/uL (0.0-0.8); MONO % 11.4 % (0.0-10.0); NEUT % 63.9 % (50.0-75.0); RBC 4.25 Mil/uL (4.40-5.90); RED CELL DISTRIBUTION WIDTH 14.5 % (11.5-14.5); WHITE BLOOD COUNT 9.3 K/uL (4.8-10.8)
[2016-09-14 08:37] LABS: ALBUMIN 3.6 g/dL (3.5-5.0)
[2016-09-14 08:40] LABS: ALB/GLOB RATIO 0.8 (1.0-2.1); ALT/SGPT 42 U/L (21-72); AST/SGOT 28 U/L (17-59); BLOOD UREA NITROGEN 21 mg/dL (9-20); GFR NON-AFRICAN AMERICAN > 60
[2016-09-14 08:41] LABS: CALCIUM 8.6 mg/dl (8.6-10.4)
[2016-09-14] MEDS: levETIRAcetam 100 mg/ml (5ml) Oral Syringe PEG SCH ×2 (11:00→17:27)
[2016-09-14] MEDS: Enoxaparin 30 mg Syringe SC SCH (11:00)
[2016-09-14] MEDS: Nystatin 100,000 Units/ml Oral Susp 5 ml UD PO SCH (23:08)
[2016-09-15] MEDS: Enoxaparin 30 mg Syringe SC SCH (10:39)
[2016-09-15] MEDS: Nystatin 100,000 Units/ml Oral Susp 5 ml UD PO SCH ×4 (10:39→21:36)
[2016-09-15] MEDS: levETIRAcetam 100 mg/ml (5ml) Oral Syringe PEG SCH ×2 (10:40→17:54)
--- NOTE | 2016-09-15 13:08 | CP.PCM.PN ---
<Imani Ramon - Last Filed: 09/15/16 13:48> Subjective - Date & Time of Evaluation Date of Evaluation: 09/15/16 Time of Evaluation: 09:00 - Subjective Subjective: PGY1 MEDICINE NOTE FOR DR. YING Patient seen and evaluated at bedside. Patient is resting comfortably with PEG tube and catheter in place. Offloading boots secure. No adverse events over night per nursing. Patient tolerating feeds Isosource @ 60cc/hr. Objective - Vital Signs/Intake and Output Vital Signs (last 24 hours): Temp Pulse Resp BP Pulse Ox 97.9 F 80 20 102/60 98 09/15/16 08:11 09/15/16 08:11 09/15/16 08:11 09/15/16 08:11 09/15/16 08:11 Intake and Output: 09/15/16 09/15/16 06:59 18:59 Intake Total 1460 Output Total 680 100 Balance 780 -100 - Medications Medications: Current Medications Aspirin (Aspirin) 325 mg PEG DAILY [facility] Last Admin: 09/15/16 10:39 Dose: 325 mg Carvedilol (Coreg) 3.125 mg PEG BID [facility] Last Admin: 09/15/16 10:39 Dose: 3.125 mg Clopidogrel Bisulfate (Plavix) 75 mg PEG DAILY [facility] Last Admin: 09/15/16 10:39 Dose: 75 mg Enoxaparin Sodium (Lovenox) 30 mg SC DAILY [facility] Last Admin: 09/15/16 10:39 Dose: 30 mg Famotidine (Pepcid) 20 mg PEG DAILY [facility] Last Admin: 09/15/16 10:39 Dose: 20 mg Finasteride (Proscar) 5 mg PO DAILY [facility] Last Admin: 09/15/16 10:39 Dose: 5 mg Levetiracetam (Keppra) 500 mg PEG BID [facility] Last Admin: 09/15/16 10:40 Dose: 500 mg Nystatin (Nystatin Oral Susp) 5 ml PO QID [facility] Stop: 09/21/16 22:01 Last Admin: 09/15/16 10:39 Dose: 5 ml Polyethylene Glycol (Miralax) 17 gm PO QPM [facility] Last Admin: 07/22/16 17:46 Dose: 17 gm Tamsulosin HCl (Flomax) 0.4 mg PO DAILY [facility] Last Admin: 09/15/16 10:39 Dose: 0.4 mg - Labs Labs: 09/14/16 08:07 09/14/16 08:07 PT 10.6 SECONDS (9.7-12.2) 11/24/15 14:10 INR 1.0 11/24/15 14:10 APTT 25 SECONDS (21-34) 11/24/15 14:10 - Head Exam Head Exam: ATRAUMATIC, NORMAL INSPECTION, NORMOCEPHALIC - Eye Exam Eye Exam: Normal appearance. absent: Conjunctival injection, Scleral icterus - ENT Exam ENT Exam: Mucous Membranes Moist - Neck Exam Additional comments: trach collar in place- secretions thick but minimal - Respiratory Exam Respiratory Exam: Clear to Ausculation Bilateral, NORMAL BREATHING PATTERN. absent: Rales, Rhonchi, Wheezes - Cardiovascular Exam Cardiovascular Exam: REGULAR RHYTHM, +S1, +S2 - GI/Abdominal Exam GI & Abdominal Exam: Soft, Normal Bowel Sounds Additional comments: PEG site clean; no signs of infection - Extremities Exam Extremities Exam: Normal Capillary Refill. absent: Joint Swelling, Pedal Edema - Back Exam Additional comments: sacral decubitis ulcer present, pink base - Neurological Exam Neurological Exam: Awake - Skin Skin Exam: Dry, Intact, Normal Color, Warm Assessment and Plan - Assessment and Plan (Free Text) Assessment: Anoxic encephalopathy * Continue to monitor weekly labs on Sundays * continue with q2h turning, * therapy * feeds through PEG site at 60cc/hr * suctioning trach routinely * Pending assisted facility placement Hypoalbuminemia * Downtrending over course of weekly labs; (3.6 09/14) * Dietary recommended 30ml Prostat as dietary supplement Sacral Ulcers * 09/14: Stage 2 ulcer, still ~3cm; continue oitment and frequent turning. * 09/08: Stage 2 fissure, ~3 cm; continue ointment and frequent turning * 09/06: small sacral ulcer- continue with local wound care and repositioning, pink wound base * 08/31: Small stage 2 sacral ulcer. 3 x 0.2 cm, sensicare protective ointment 3x /day and frequent repositioning * 08/26: ~1.5 cm abrasion in sacral region, Wound Care Nurse asked to see pt, He said "he will take care of it" * 08/25: Abrasion now 15mm, will speak to wound care for recommendations, Again pt turning Q2H was stressed to nursing staff * 08/24: Abrasion is now ~ 10 mm, turning the pt Q2H was stressed to nursing staff to prevent ulceration * 08/20: Small 1 mm abrasion in sacral area. Informed nursing and instructed them to turn him intermittently. * Nursing to use barrier to prevent further progression of abrasion * Continue to turn patient q2hrs * Monitor with skin checks Urinary Retention * Good output- noncloudy * pt on flomax 0.4 mg PO daily * Proscar 5mg PO daily * monitor I's and O's * Continue monitoring patient and vitals Failure to thrive * Continue Current management- * Continuous Tube feeds 60cc/hr. 250cc of free water flush q8H * Measure weight weekly. Respiratory failure * Continue Current management of trach collar and secretions- continue to suction * s/p trach * Monitor CAD (coronary artery disease) * Continue Current management * s/p cardiac stents on 06/13/15 * Continue ASA 81mg via PEG daily * Carvedilol 3.125mg PO BID * Continue Plavix 75mg via PEG daily Seizures * Continue Current management * Continue Keppra 500mg PEG BID for seizure prophylaxis * Phenytoin d/c due to continued inc in LFT's on 07/21/16. Prophylactic measure * Pepcid 20 mg PEG daily * lovenox 30mg SC daily * Miralax 17gm PO QPM * SCDs * Pressure offloading Heel Boots in place <Donnell Ying M - Last Filed: 09/15/16 16:23> Objective - Vital Signs/Intake and Output Vital Signs (last 24 hours): Temp Pulse Resp BP Pulse Ox 97.9 F 80 20 102/60 98 09/15/16 08:11 09/15/16 08:11 09/15/16 08:11 09/15/16 08:11 09/15/16 08:11 Intake and Output: 09/15/16 09/15/16 06:59 18:59 Intake Total 1460 Output Total 680 100 Balance 780 -100 - Medications Medications: Current Medications Aspirin (Aspirin) 325 mg PEG DAILY [facility] Last Admin: 09/15/16 10:39 Dose: 325 mg Carvedilol (Coreg) 3.125 mg PEG BID [facility] Last Admin: 09/15/16 10:39 Dose: 3.125 mg Clopidogrel Bisulfate (Plavix) 75 mg PEG DAILY [facility] Last Admin: 09/15/16 10:39 Dose: 75 mg Enoxaparin Sodium (Lovenox) 30 mg SC DAILY [facility] Last Admin: 09/15/16 10:39 Dose: 30 mg Famotidine (Pepcid) 20 mg PEG DAILY [facility] Last Admin: 09/15/16 10:39 Dose: 20 mg Finasteride (Proscar) 5 mg PO DAILY [facility] Last Admin: 09/15/16 10:39 Dose: 5 mg Levetiracetam (Keppra) 500 mg PEG BID [facility] Last Admin: 09/15/16 10:40 Dose: 500 mg Nystatin (Nystatin Oral Susp) 5 ml PO QID [facility] Stop: 09/21/16 22:01 Last Admin: 09/15/16 14:01 Dose: 5 ml Polyethylene Glycol (Miralax) 17 gm PO QPM [facility] Last Admin: 07/22/16 17:46 Dose: 17 gm Tamsulosin HCl (Flomax) 0.4 mg PO DAILY [facility] Last Admin: 09/15/16 10:39 Dose: 0.4 mg - Labs Labs: 09/14/16 08:07 09/14/16 08:07 PT 10.6 SECONDS (9.7-12.2) 11/24/15 14:10 INR 1.0 11/24/15 14:10 APTT 25 SECONDS (21-34) 11/24/15 14:10 Attending/Attestation - Attestation I have personally seen and examined this patient.: Yes I have fully participated in the care of the patient.: Yes I have reviewed all pertinent clinical information, including history, physical exam and plan: Yes Notes (Text): 09/15/16 16:22 Patient was seen and examined at bedside with the resident This is no change in clinical condition Continue local care of the tracheostomy site and the PEG tube site Continue to turn and position every 2 hours to prevent decubitus ulcers Monitor for any signs of infection in view of positive urinalysis Likely secondary to colonization Patient is afebrile and white count cell is normal We will observe without antibiotics
--- NOTE | 2016-09-16 07:40 | CP.PCM.PN ---
<Imani Ramon - Last Filed: 09/16/16 14:40> Subjective - Date & Time of Evaluation Date of Evaluation: 09/16/16 Time of Evaluation: 07:30 - Subjective Subjective: PGY1 MEDICINE NOTE FOR DR. YING Patient seen and evaluated at bedside resting comfortably. PEG tube in place- patient tolerating Isosource @ 60cc/hr [place] catheter in place. Offloading boots secure. No adverse events over night per nursing. Objective - Vital Signs/Intake and Output Vital Signs (last 24 hours): Temp Pulse Resp BP Pulse Ox 99.1 F 83 20 122/78 98 09/15/16 23:49 09/15/16 23:49 09/15/16 23:49 09/15/16 23:49 09/15/16 23:49 Intake and Output: 09/16/16 09/16/16 06:59 18:59 Intake Total 1460 Output Total 600 Balance 860 - Medications Medications: Current Medications Aspirin (Aspirin) 325 mg PEG DAILY [facility] Last Admin: 09/15/16 10:39 Dose: 325 mg Carvedilol (Coreg) 3.125 mg PEG BID [facility] Last Admin: 09/15/16 17:54 Dose: 3.125 mg Clopidogrel Bisulfate (Plavix) 75 mg PEG DAILY [facility] Last Admin: 09/15/16 10:39 Dose: 75 mg Enoxaparin Sodium (Lovenox) 30 mg SC DAILY [facility] Last Admin: 09/15/16 10:39 Dose: 30 mg Famotidine (Pepcid) 20 mg PEG DAILY [facility] Last Admin: 09/15/16 10:39 Dose: 20 mg Finasteride (Proscar) 5 mg PO DAILY [facility] Last Admin: 09/15/16 10:39 Dose: 5 mg Levetiracetam (Keppra) 500 mg PEG BID [facility] Last Admin: 09/15/16 17:54 Dose: 500 mg Nystatin (Nystatin Oral Susp) 5 ml PO QID [facility] Stop: 09/21/16 22:01 Last Admin: 09/15/16 21:36 Dose: 5 ml Polyethylene Glycol (Miralax) 17 gm PO QPM [facility] Last Admin: 07/22/16 17:46 Dose: 17 gm Tamsulosin HCl (Flomax) 0.4 mg PO DAILY [facility] Last Admin: 09/15/16 10:39 Dose: 0.4 mg - Labs Labs: 09/14/16 08:07 09/14/16 08:07 PT 10.6 SECONDS (9.7-12.2) 11/24/15 14:10 INR 1.0 11/24/15 14:10 APTT 25 SECONDS (21-34) 11/24/15 14:10 - Head Exam Head Exam: ATRAUMATIC, NORMOCEPHALIC - Eye Exam Eye Exam: Normal appearance. absent: Conjunctival injection, Scleral icterus - ENT Exam ENT Exam: Mucous Membranes Moist - Neck Exam Neck Exam: absent: Lymphadenopathy, Thyromegaly Additional comments: trach collar in place- secretions minimal - Respiratory Exam Respiratory Exam: Clear to Ausculation Bilateral, NORMAL BREATHING PATTERN. absent: Rales, Rhonchi, Wheezes - Cardiovascular Exam Cardiovascular Exam: REGULAR RHYTHM, +S1, +S2 - GI/Abdominal Exam GI & Abdominal Exam: Soft, Normal Bowel Sounds Additional comments: PEG site clean; no signs of infection - Extremities Exam Extremities Exam: Normal Capillary Refill. 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 3 x 0.2 cm, sensicare protective ointment 3x /day and frequent repositioning * 08/26: ~1.5 cm abrasion in sacral region, Wound Care Nurse asked to see pt, He said "he will take care of it" * 08/25: Abrasion now 15mm, will speak to wound care for recommendations, Again pt turning Q2H was stressed to nursing staff * 08/24: Abrasion is now ~ 10 mm, turning the pt Q2H was stressed to nursing staff to prevent ulceration * 08/20: Small 1 mm abrasion in sacral area. Informed nursing and instructed them to turn him intermittently. * Nursing to use barrier to prevent further progression of abrasion * Monitor with skin checks Urinary Retention * Good output- noncloudy * Flomax 0.4 mg PO daily * Proscar 5mg PO daily * monitor I's and O's * Continue monitoring patient and vitals Failure to thrive * Continue Current management- * Continuous Tube feeds 60cc/hr. 250cc of free water flush q8H * Measure weight weekly. Respiratory failure * Continue Current management of trach collar and secretions- continue to suction * Monitor CAD (coronary artery disease) * Continue Current management * s/p cardiac stents on 06/13/15 * Continue ASA 325mg via PEG daily * Carvedilol 3.125mg PO BID * Continue Plavix 75mg via PEG daily Seizures * Continue Current management * Keppra 500mg PEG BID for seizure prophylaxis * Phenytoin d/c due to continued inc in LFT's on 07/21/16. Prophylactic measure * Pepcid 20 mg PEG daily * lovenox 30mg SC daily * Miralax 17gm PO QPM * SCDs * Pressure offloading Heel Boots in place <Donnell Ying - Last Filed: 09/16/16 17:47> Objective - Vital Signs/Intake and Output Vital Signs (last 24 hours): Temp Pulse Resp BP Pulse Ox 97.4 F L 71 20 99/68 L 100 09/16/16 16:27 09/16/16 16:27 09/16/16 16:27 09/16/16 16:27 09/16/16 16:27 Intake and Output: 09/16/16 09/16/16 06:59 18:59 Intake Total 1460 680 Output Total 600 300 Balance 860 380 - Medications Medications: Current Medications Aspirin (Aspirin) 325 mg PEG DAILY [facility] Last Admin: 09/16/16 10:48 Dose: 325 mg Carvedilol (Coreg) 3.125 mg PEG BID [facility] Last Admin: 09/16/16 17:05 Dose: 3.125 mg Clopidogrel Bisulfate (Plavix) 75 mg PEG DAILY [facility] Last Admin: 09/16/16 10:48 Dose: 75 mg Enoxaparin Sodium (Lovenox) 30 mg SC DAILY [facility] Last Admin: 09/16/16 10:47 Dose: 30 mg Famotidine (Pepcid) 20 mg PEG DAILY [facility] Last Admin: 09/16/16 10:48 Dose: 20 mg Finasteride (Proscar) 5 mg PO DAILY [facility] Last Admin: 09/16/16 10:48 Dose: 5 mg Levetiracetam (Keppra) 500 mg PEG BID [facility] Last Admin: 09/16/16 17:05 Dose: 500 mg Nystatin (Nystatin Oral Susp) 5 ml PO QID [facility] Stop: 09/21/16 22:01 Last Admin: 09/16/16 17:05 Dose: 5 ml Polyethylene Glycol (Miralax) 17 gm PO QPM [facility] Last Admin: 07/22/16 17:46 Dose: 17 gm Tamsulosin HCl (Flomax) 0.4 mg PO DAILY [facility] Last Admin: 09/16/16 10:48 Dose: 0.4 mg - Labs Labs: 09/14/16 08:07 09/14/16 08:07 PT 10.6 SECONDS (9.7-12.2) 11/24/15 14:10 INR 1.0 11/24/15 14:10 APTT 25 SECONDS (21-34) 11/24/15 14:10 Attending/Attestation - Attestation I have personally seen and examined this patient.: Yes I have fully participated in the care of the patient.: Yes I have reviewed all pertinent clinical information, including history, physical exam and plan: Yes Notes (Text): 09/16/16 17:46 Patient was seen and examined at bedside with the resident No change in clinical condition Continue current management Turn and position every 2 hours for prevention of decubitus ulcers Plan of care discussed with the resident
[2016-09-16] MEDS: levETIRAcetam 100 mg/ml (5ml) Oral Syringe PEG SCH ×2 (10:47→17:05)
[2016-09-16] MEDS: Enoxaparin 30 mg Syringe SC SCH (10:47)
[2016-09-16] MEDS: Nystatin 100,000 Units/ml Oral Susp 5 ml UD PO SCH ×4 (10:48→21:05)
--- NOTE | 2016-09-17 08:55 | CP.PCM.PN ---
<Imani Ramon - Last Filed: 09/17/16 13:48> Subjective - Date & Time of Evaluation Date of Evaluation: 09/17/16 Time of Evaluation: 10:00 - Subjective Subjective: PGY1 MEDICINE NOTE FOR DR. YING Patient seen and evaluated at bedside resting comfortably. PEG tube in place- patient tolerating Isosource @ 60cc/hr [place] catheter in place- UO 400cc 1 soft BM Trach collar at 40% satting at 100% Offloading boots secure. No adverse events over night per nursing. ROS unobtainable. Objective - Vital Signs/Intake and Output Vital Signs (last 24 hours): Temp Pulse Resp BP Pulse Ox 98.3 F 69 20 125/80 99 09/17/16 07:34 09/17/16 07:34 09/17/16 07:34 09/17/16 07:34 09/17/16 07:34 Intake and Output: 09/17/16 09/17/16 06:59 18:59 Intake Total 730 Output Total 750 Balance -20 - Medications Medications: Current Medications Aspirin (Aspirin) 325 mg PEG DAILY [facility] Last Admin: 09/16/16 10:48 Dose: 325 mg Carvedilol (Coreg) 3.125 mg PEG BID [facility] Last Admin: 09/16/16 17:05 Dose: 3.125 mg Clopidogrel Bisulfate (Plavix) 75 mg PEG DAILY [facility] Last Admin: 09/16/16 10:48 Dose: 75 mg Enoxaparin Sodium (Lovenox) 30 mg SC DAILY [facility] Last Admin: 09/16/16 10:47 Dose: 30 mg Famotidine (Pepcid) 20 mg PEG DAILY [facility] Last Admin: 09/16/16 10:48 Dose: 20 mg Finasteride (Proscar) 5 mg PO DAILY [facility] Last Admin: 09/16/16 10:48 Dose: 5 mg Levetiracetam (Keppra) 500 mg PEG BID [facility] Last Admin: 09/16/16 17:05 Dose: 500 mg Nystatin (Nystatin Oral Susp) 5 ml PO QID [facility] Stop: 09/21/16 22:01 Last Admin: 09/16/16 21:05 Dose: 5 ml Polyethylene Glycol (Miralax) 17 gm PO QPM [facility] Last Admin: 07/22/16 17:46 Dose: 17 gm Tamsulosin HCl (Flomax) 0.4 mg PO DAILY [facility] Last Admin: 09/16/16 10:48 Dose: 0.4 mg - Labs Labs: 09/14/16 08:07 09/14/16 08:07 PT 10.6 SECONDS (9.7-12.2) 11/24/15 14:10 INR 1.0 11/24/15 14:10 APTT 25 SECONDS (21-34) 11/24/15 14:10 - Head Exam Head Exam: ATRAUMATIC, NORMOCEPHALIC - Eye Exam Eye Exam: Normal appearance. absent: Conjunctival injection, Scleral icterus - ENT Exam ENT Exam: Mucous Membranes Moist - Neck Exam Neck Exam: absent: Lymphadenopathy, Thyromegaly Additional comments: trach collar in place - Respiratory Exam Respiratory Exam: Clear to Ausculation Bilateral, NORMAL BREATHING PATTERN. absent: Rales, Rhonchi, Wheezes - Cardiovascular Exam Cardiovascular Exam: REGULAR RHYTHM, +S1, +S2 - GI/Abdominal Exam GI & Abdominal Exam: Soft, Normal Bowel Sounds Additional comments: PEG site clean; no signs of infection - Extremities Exam Extremities Exam: Normal Capillary Refill. 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 3 x 0.2 cm, sensicare protective ointment 3x /day and frequent repositioning * 08/26: ~1.5 cm abrasion in sacral region, Wound Care Nurse asked to see pt, He said "he will take care of it" * 08/25: Abrasion now 15mm, will speak to wound care for recommendations, Again pt turning Q2H was stressed to nursing staff * 08/24: Abrasion is now ~ 10 mm, turning the pt Q2H was stressed to nursing staff to prevent ulceration * 08/20: Small 1 mm abrasion in sacral area. Informed nursing and instructed them to turn him intermittently. * Nursing to use barrier to prevent further progression of abrasion * Monitor with skin checks Urinary Retention * Good output- noncloudy * Flomax 0.4 mg PO daily * Proscar 5mg PO daily * monitor I's and O's * Continue monitoring patient and vitals Failure to thrive * Continue Current management * Continuous Tube feeds 60cc/hr. 250cc of free water flush q8H * Measure weight weekly. Respiratory failure * Continue Current management of trach collar and secretions- continue to suction * Monitor CAD (coronary artery disease) * Continue Current management * s/p cardiac stents on 06/13/15 * Continue ASA 325mg via PEG daily * Carvedilol 3.125mg PO BID * Continue Plavix 75mg via PEG daily Seizures * Continue Current management * Keppra 500mg PEG BID for seizure prophylaxis * Phenytoin d/c due to continued inc in LFT's on 07/21/16. Prophylactic measure * Pepcid 20 mg PEG daily * lovenox 30mg SC daily * SCDs * Pressure offloading Heel Boots in place <Donnell Ying M - Last Filed: 09/17/16 17:26> Objective - Vital Signs/Intake and Output Vital Signs (last 24 hours): Temp Pulse Resp BP Pulse Ox 97.9 F 75 20 116/62 100 09/17/16 16:29 09/17/16 16:29 09/17/16 16:29 09/17/16 16:29 09/17/16 16:29 Intake and Output: 09/17/16 09/17/16 06:59 18:59 Intake Total 730 730 Output Total 750 550 Balance -20 180 - Medications Medications: Current Medications Aspirin (Aspirin) 325 mg PEG DAILY [facility] Last Admin: 09/17/16 11:01 Dose: 325 mg Carvedilol (Coreg) 3.125 mg PEG BID [facility] Last Admin: 09/17/16 17:04 Dose: 3.125 mg Clopidogrel Bisulfate (Plavix) 75 mg PEG DAILY [facility] Last Admin: 09/17/16 11:01 Dose: 75 mg Enoxaparin Sodium (Lovenox) 30 mg SC DAILY [facility] Famotidine (Pepcid) 20 mg PEG DAILY [facility] Last Admin: 09/17/16 11:01 Dose: 20 mg Finasteride (Proscar) 5 mg PO DAILY [facility] Last Admin: 09/17/16 11:02 Dose: 5 mg Levetiracetam (Keppra) 500 mg PEG BID [facility] Last Admin: 09/17/16 17:04 Dose: 500 mg Nystatin (Nystatin Oral Susp) 5 ml PO QID [facility] Stop: 09/21/16 22:01 Last Admin: 09/17/16 17:03 Dose: 5 ml Tamsulosin HCl (Flomax) 0.4 mg PO DAILY [facility] Last Admin: 09/17/16 11:01 Dose: 0.4 mg - Labs Labs: 09/14/16 08:07 09/14/16 08:07 PT 10.6 SECONDS (9.7-12.2) 11/24/15 14:10 INR 1.0 11/24/15 14:10 APTT 25 SECONDS (21-34) 11/24/15 14:10 Attending/Attestation - Attestation I have personally seen and examined this patient.: Yes I have fully participated in the care of the patient.: Yes I have reviewed all pertinent clinical information, including history, physical exam and plan: Yes Notes (Text): 09/17/16 17:25 Patient seen and examined at bedside Blisters noted on the right thigh We will continue to observe - no signs of infection Continue to turn and position every 2 hours Continue local care of tracheostomy and PEG site The plan of care discussed with the resident
[2016-09-17] MEDS: Nystatin 100,000 Units/ml Oral Susp 5 ml UD PO SCH ×4 (11:01→21:46)
[2016-09-17] MEDS: levETIRAcetam 100 mg/ml (5ml) Oral Syringe PEG SCH ×2 (11:02→17:04)
[2016-09-17] MEDS: Enoxaparin 30 mg Syringe SC SCH (11:03)
[2016-09-18] MEDS: levETIRAcetam 100 mg/ml (5ml) Oral Syringe PEG SCH ×2 (09:54→17:18)
[2016-09-18] MEDS: Enoxaparin 30 mg Syringe SC SCH (09:55)
[2016-09-18] MEDS: Nystatin 100,000 Units/ml Oral Susp 5 ml UD PO SCH ×4 (09:55→21:55)
--- NOTE | 2016-09-18 16:07 | CP.PCM.PN ---
<Imani Ramon - Last Filed: 09/18/16 18:03> Subjective - Date & Time of Evaluation Date of Evaluation: 09/18/16 Time of Evaluation: 07:15 - Subjective Subjective: PGY1 MEDICINE NOTE FOR DR. YING Patient seen and evaluated at bedside resting comfortably. PEG tube in place- patient tolerating Isosource @ 60cc/hr [place] catheter in place Trach collar at 40% satting at 100% Offloading boots secure. No adverse events over night per nursing. ROS unobtainable. Objective - Vital Signs/Intake and Output Vital Signs (last 24 hours): Temp Pulse Resp BP Pulse Ox 97.3 F L 76 20 104/69 100 09/18/16 08:00 09/18/16 08:00 09/18/16 08:00 09/18/16 08:00 09/18/16 08:00 Intake and Output: 09/18/16 09/18/16 06:59 18:59 Intake Total 680 680 Output Total 1200 100 Balance -520 580 - Medications Medications: Current Medications Aspirin (Aspirin) 325 mg PEG DAILY [facility] Last Admin: 09/18/16 09:54 Dose: 325 mg Carvedilol (Coreg) 3.125 mg PEG BID [facility] Last Admin: 09/18/16 09:54 Dose: 3.125 mg Clopidogrel Bisulfate (Plavix) 75 mg PEG DAILY [facility] Last Admin: 09/18/16 09:56 Dose: 75 mg Enoxaparin Sodium (Lovenox) 30 mg SC DAILY [facility] Last Admin: 09/18/16 09:55 Dose: 30 mg Famotidine (Pepcid) 20 mg PEG DAILY [facility] Last Admin: 09/18/16 09:55 Dose: 20 mg Finasteride (Proscar) 5 mg PO DAILY [facility] Last Admin: 09/18/16 09:56 Dose: 5 mg Levetiracetam (Keppra) 500 mg PEG BID [facility] Last Admin: 09/18/16 09:54 Dose: 500 mg Nystatin (Nystatin Oral Susp) 5 ml PO QID [facility] Stop: 09/21/16 22:01 Last Admin: 09/18/16 13:56 Dose: 5 ml Tamsulosin HCl (Flomax) 0.4 mg PO DAILY [facility] Last Admin: 09/18/16 09:54 Dose: 0.4 mg - Labs Labs: 09/14/16 08:07 10/23/16 08:07 PT 10.6 SECONDS (9.7-12.2) 11/24/15 14:10 INR 1.0 11/24/15 14:10 APTT 25 SECONDS (21-34) 11/24/15 14:10 - Head Exam Head Exam: ATRAUMATIC, NORMOCEPHALIC - Eye Exam Eye Exam: Normal appearance. absent: Conjunctival injection, Scleral icterus Pupil Exam: NORMAL ACCOMODATION - ENT Exam ENT Exam: Mucous Membranes Moist - Neck Exam Neck Exam: absent: Lymphadenopathy, Thyromegaly Additional comments: trach collar in place - Respiratory Exam Respiratory Exam: Clear to Ausculation Bilateral, NORMAL BREATHING PATTERN. absent: Rales, Rhonchi, Wheezes - Cardiovascular Exam Cardiovascular Exam: REGULAR RHYTHM, +S1, +S2 - GI/Abdominal Exam GI & Abdominal Exam: Soft, Normal Bowel Sounds Additional comments: PEG site clean; no signs of infection - Extremities Exam Extremities Exam: Normal Capillary Refill. 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 3 x 0.2 cm, sensicare protective ointment 3x /day and frequent repositioning * 08/26: ~1.5 cm abrasion in sacral region, Wound Care Nurse asked to see pt, He said "he will take care of it" * 08/25: Abrasion now 15mm, will speak to wound care for recommendations, Again pt turning Q2H was stressed to nursing staff * 08/24: Abrasion is now ~ 10 mm, turning the pt Q2H was stressed to nursing staff to prevent ulceration * 08/20: Small 1 mm abrasion in sacral area. Informed nursing and instructed them to turn him intermittently. * Nursing to use barrier to prevent further progression of abrasion * Monitor with skin checks Urinary Retention * Good output- noncloudy * Flomax 0.4 mg PO daily * Proscar 5mg PO daily * monitor I's and O's * Continue monitoring patient and vitals Failure to thrive * Continue Current management * Continuous Tube feeds 60cc/hr. 250cc of free water flush q8H * Measure weight weekly. Respiratory failure * Continue Current management of trach collar and secretions- continue to suction * Monitor CAD (coronary artery disease) * Continue Current management * s/p cardiac stents on 06/13/15 * Continue ASA 325mg via PEG daily * Carvedilol 3.125mg PO BID * Continue Plavix 75mg via PEG daily Seizures * Continue Current management * Keppra 500mg PEG BID for seizure prophylaxis * Phenytoin d/c due to continued inc in LFT's on 07/21/16. Prophylactic measure * Pepcid 20 mg PEG daily * lovenox 30mg SC daily * SCDs * Pressure offloading Heel Boots in place <Donnell Ying - Last Filed: 09/18/16 18:11> Objective - Vital Signs/Intake and Output Vital Signs (last 24 hours): Temp Pulse Resp BP Pulse Ox 98.2 F 64 20 116/75 100 09/18/16 16:00 09/18/16 17:40 09/18/16 16:00 09/18/16 16:00 09/18/16 16:00 Intake and Output: 09/18/16 09/18/16 06:59 18:59 Intake Total 680 680 Output Total 1200 100 Balance -520 580 - Medications Medications: Current Medications Aspirin (Aspirin) 325 mg PEG DAILY [facility] Last Admin: 09/18/16 09:54 Dose: 325 mg Carvedilol (Coreg) 3.125 mg PEG BID [facility] Last Admin: 09/18/16 17:18 Dose: 3.125 mg Clopidogrel Bisulfate (Plavix) 75 mg PEG DAILY [facility] Last Admin: 09/18/16 09:56 Dose: 75 mg Enoxaparin Sodium (Lovenox) 30 mg SC DAILY [facility] Last Admin: 09/18/16 09:55 Dose: 30 mg Famotidine (Pepcid) 20 mg PEG DAILY [facility] Last Admin: 09/18/16 09:55 Dose: 20 mg Finasteride (Proscar) 5 mg PO DAILY [facility] Last Admin: 09/18/16 09:56 Dose: 5 mg Levetiracetam (Keppra) 500 mg PEG BID [facility] Last Admin: 09/18/16 17:18 Dose: 500 mg Nystatin (Nystatin Oral Susp) 5 ml PO QID [facility] Stop: 09/21/16 22:01 Last Admin: 09/18/16 17:18 Dose: 5 ml Tamsulosin HCl (Flomax) 0.4 mg PO DAILY [facility] Last Admin: 09/18/16 09:54 Dose: 0.4 mg - Labs Labs: 09/14/16 08:07 09/14/16 08:07 PT 10.6 SECONDS (9.7-12.2) 11/24/15 14:10 INR 1.0 11/24/15 14:10 APTT 25 SECONDS (21-34) 11/24/15 14:10 Attending/Attestation - Attestation I have personally seen and examined this patient.: Yes I have fully participated in the care of the patient.: Yes I have reviewed all pertinent clinical information, including history, physical exam and plan: Yes Notes (Text): 09/18/16 18:11 Patient was seen and examined at bedside There is no change in clinical condition Continue current management Continue to turn and position every 2 hours to prevent decubitus ulcers We will continue local care of the tracheostomy site and the PEG tube site
[2016-09-19] MEDS: levETIRAcetam 100 mg/ml (5ml) Oral Syringe PEG SCH ×2 (10:24→17:26)
[2016-09-19] MEDS: Enoxaparin 30 mg Syringe SC SCH (10:24)
[2016-09-19] MEDS: Nystatin 100,000 Units/ml Oral Susp 5 ml UD PO SCH ×4 (10:25→21:39)
--- NOTE | 2016-09-19 14:29 | CP.PCM.PN ---
<Imani Ramon - Last Filed: 09/19/16 14:35> Subjective - Date & Time of Evaluation Date of Evaluation: 09/19/16 Time of Evaluation: 10:30 - Subjective Subjective: PGY1 MEDICINE NOTE FOR DR. YING Patient seen and evaluated at bedside resting comfortably. PEG tube in place- nonerythematous around site. Isosource @ 60cc/hr being tolerated [place] catheter in place Trach collar at 40% satting at 100% Offloading boots secure. No adverse events over night per nursing. ROS unobtainable. Objective - Vital Signs/Intake and Output Vital Signs (last 24 hours): Temp Pulse Resp BP Pulse Ox 98.5 F 80 20 123/83 99 09/19/16 08:55 09/19/16 08:55 09/19/16 08:55 09/19/16 08:55 09/19/16 08:55 Intake and Output: 09/19/16 09/19/16 06:59 18:59 Intake Total 580 680 Output Total 300 180 Balance 280 500 - Medications Medications: Current Medications Aspirin (Aspirin) 325 mg PEG DAILY [facility] Last Admin: 09/19/16 10:24 Dose: 325 mg Carvedilol (Coreg) 3.125 mg PEG BID [facility] Last Admin: 09/19/16 10:25 Dose: 3.125 mg Clopidogrel Bisulfate (Plavix) 75 mg PEG DAILY [facility] Last Admin: 09/19/16 10:24 Dose: 75 mg Enoxaparin Sodium (Lovenox) 30 mg SC DAILY [facility] Last Admin: 09/19/16 10:24 Dose: 30 mg Famotidine (Pepcid) 20 mg PEG DAILY [facility] Last Admin: 09/19/16 10:24 Dose: 20 mg Finasteride (Proscar) 5 mg PO DAILY [facility] Last Admin: 09/19/16 10:24 Dose: 5 mg Levetiracetam (Keppra) 500 mg PEG BID [facility] Last Admin: 09/19/16 10:24 Dose: 500 mg Nystatin (Nystatin Oral Susp) 5 ml PO QID [facility] Stop: 09/21/16 22:01 Last Admin: 09/19/16 13:40 Dose: 5 ml Tamsulosin HCl (Flomax) 0.4 mg PO DAILY [facility] Last Admin: 09/19/16 10:24 Dose: 0.4 mg - Labs Labs: 09/14/16 08:07 09/14/16 08:07 PT 10.6 SECONDS (9.7-12.2) 11/24/15 14:10 INR 1.0 11/24/15 14:10 APTT 25 SECONDS (21-34) 11/24/15 14:10 - Head Exam Head Exam: ATRAUMATIC, NORMOCEPHALIC - Eye Exam Eye Exam: Normal appearance. absent: Conjunctival injection, Scleral icterus Pupil Exam: NORMAL ACCOMODATION - ENT Exam ENT Exam: Mucous Membranes Moist - Neck Exam Neck Exam: absent: Lymphadenopathy, Thyromegaly Additional comments: trach collar in place - Respiratory Exam Respiratory Exam: Clear to Ausculation Bilateral, NORMAL BREATHING PATTERN. absent: Rales, Rhonchi, Wheezes - Cardiovascular Exam Cardiovascular Exam: REGULAR RHYTHM, +S1, +S2 - GI/Abdominal Exam GI & Abdominal Exam: Soft, Normal Bowel Sounds. absent: Tenderness Additional comments: PEG site clean; no signs of infection - Extremities Exam Extremities Exam: Normal Inspection. absent: Pedal Edema Additional comments: 2 small blisters upper thigh - Back Exam Additional comments: sacral decubitus stage II ulcer- pink base. - Neurological Exam Neurological Exam: Awake. 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 3 x 0.2 cm, sensicare protective ointment 3x /day and frequent repositioning * 08/26: ~1.5 cm abrasion in sacral region, Wound Care Nurse asked to see pt, He said "he will take care of it" * 10/3: Abrasion now 15mm, will speak to wound care for recommendations, Again pt turning Q2H was stressed to nursing staff * 08/24: Abrasion is now ~ 10 mm, turning the pt Q2H was stressed to nursing staff to prevent ulceration * 08/20: Small 1 mm abrasion in sacral area. Informed nursing and instructed them to turn him intermittently. * Nursing to use barrier to prevent further progression of abrasion * Monitor with skin checks Urinary Retention * Good output- noncloudy * Flomax 0.4 mg PO daily * Proscar 5mg PO daily * monitor I's and O's * Continue monitoring patient and vitals Failure to thrive * Continue Current management * Continuous Tube feeds 60cc/hr. 250cc of free water flush q8H * Measure weight weekly. Respiratory failure * Continue Current management of trach collar and secretions- continue to suction * Monitor CAD (coronary artery disease) * Continue Current management * s/p cardiac stents on 06/13/15 * Continue ASA 325mg via PEG daily * Carvedilol 3.125mg PO BID * Continue Plavix 75mg via PEG daily Seizures * Continue Current management * Keppra 500mg PEG BID for seizure prophylaxis * Phenytoin d/c due to continued inc in LFT's on 07/21/16. Prophylactic measure * Pepcid 20 mg PEG daily * lovenox 30mg SC daily * SCDs * Pressure offloading Heel Boots in place <Donnell Ying - Last Filed: 09/19/16 14:53> Objective - Vital Signs/Intake and Output Vital Signs (last 24 hours): Temp Pulse Resp BP Pulse Ox 98.5 F 80 20 123/83 99 09/19/16 08:55 09/19/16 08:55 09/19/16 08:55 09/19/16 08:55 09/19/16 08:55 Intake and Output: 09/19/16 09/19/16 06:59 18:59 Intake Total 580 680 Output Total 300 180 Balance 280 500 - Medications Medications: Current Medications Aspirin (Aspirin) 325 mg PEG DAILY [facility] Last Admin: 09/19/16 10:24 Dose: 325 mg Carvedilol (Coreg) 3.125 mg PEG BID [facility] Last Admin: 09/19/16 10:25 Dose: 3.125 mg Clopidogrel Bisulfate (Plavix) 75 mg PEG DAILY [facility] Last Admin: 09/19/16 10:24 Dose: 75 mg Enoxaparin Sodium (Lovenox) 30 mg SC DAILY [facility] Last Admin: 09/19/16 10:24 Dose: 30 mg Famotidine (Pepcid) 20 mg PEG DAILY [facility] Last Admin: 09/19/16 10:24 Dose: 20 mg Finasteride (Proscar) 5 mg PO DAILY [facility] Last Admin: 09/19/16 10:24 Dose: 5 mg Levetiracetam (Keppra) 500 mg PEG BID [facility] Last Admin: 09/19/16 10:24 Dose: 500 mg Nystatin (Nystatin Oral Susp) 5 ml PO QID [facility] Stop: 09/21/16 22:01 Last Admin: 09/19/16 13:40 Dose: 5 ml Tamsulosin HCl (Flomax) 0.4 mg PO DAILY [facility] Last Admin: 09/19/16 10:24 Dose: 0.4 mg - Labs Labs: 09/14/16 08:07 09/14/16 08:07 PT 10.6 SECONDS (9.7-12.2) 11/24/15 14:10 INR 1.0 11/24/15 14:10 APTT 25 SECONDS (21-34) 11/24/15 14:10 Attending/Attestation - Attestation I have personally seen and examined this patient.: Yes I have fully participated in the care of the patient.: Yes I have reviewed all pertinent clinical information, including history, physical exam and plan: Yes Notes (Text): 09/19/16 14:52 Patient seen and examined at bedside with the resident Continue current management Patient that turned and the back wound and examined We will continue local wound care to prevent any decubitus ulcers Continue local care of tracheostomy and PEG site
--- NOTE | 2016-09-20 06:11 | CP.PCM.PN ---
Addendum entered and electronically signed by Mee Luciano MDS 09/20/16 06 :14: A&P Anoxic encephalopathy * Continue to monitor weekly labs on Sundays * Continue with q2h turning * therapy * feeds through PEG site at 60cc/hr * suctioning trach routinely * Pending care home facility placement Hypoalbuminemia * Downtrending over course of weekly labs; (3.6 09/14) * Dietary recommended 30ml Prostat as dietary supplement Sacral Ulcers * Stage 2 ulcer, still ~3cm; continue ointment and frequent turning Q2H * 09/08: Stage 2 fissure, ~3 cm; continue ointment and frequent turning * 09/06: small sacral ulcer- continue with local wound care and repositioning, pink wound base * 08/31: Small stage 2 sacral ulcer. 3 x 0.2 cm, sensicare protective ointment 3x /day and frequent repositioning * 08/26: ~1.5 cm abrasion in sacral region, Wound Care Nurse asked to see pt, He said "he will take care of it" * 08/25: Abrasion now 15mm, will speak to wound care for recommendations, Again pt turning Q2H was stressed to nursing staff * 08/24: Abrasion is now ~ 10 mm, turning the pt Q2H was stressed to nursing staff to prevent ulceration * 08/20: Small 1 mm abrasion in sacral area. Informed nursing and instructed them to turn him intermittently. * Nursing to use barrier to prevent further progression of abrasion * Monitor with skin checks Urinary Retention * Good output- noncloudy * Flomax 0.4 mg PO daily * Proscar 5mg PO daily * monitor I's and O's * Continue monitoring patient and vitals Failure to thrive * Continue Current management * Continuous Tube feeds 60cc/hr. 250cc of free water flush q8H * Measure weight weekly. Respiratory failure * Continue Current management of trach collar and secretions- continue to suction * Monitor CAD (coronary artery disease) * Continue Current management * s/p cardiac stents on 06/13/15 * Continue ASA 325mg via PEG daily * Carvedilol 3.125mg PO BID * Continue Plavix 75mg via PEG daily Seizures * Continue Current management * Keppra 500mg PEG BID for seizure prophylaxis * Phenytoin d/c due to continued inc in LFT's on 07/21/16. Prophylactic measure * Pepcid 20 mg PEG daily * lovenox 30mg SC daily * SCDs * Pressure offloading Heel Boots in place Original Note: <WesleyMee ramos - Last Filed: 09/20/16 06:09> Subjective - Date & Time of Evaluation Date of Evaluation: 09/20/16 Time of Evaluation: 06:09 - Subjective Subjective: Pt seen at bedside. ROS cannot be obtained. PEG tube , [place] catheter in place. Feed being tolerated. No adverse events per nursing. Objective - Vital Signs/Intake and Output Vital Signs (last 24 hours): Temp Pulse Resp BP Pulse Ox 97.8 F 83 83 H 113/78 99 09/19/16 23:28 09/19/16 23:30 09/19/16 23:28 09/19/16 23:28 09/19/16 23:28 Intake and Output: 09/19/16 09/20/16 18:59 06:59 Intake Total 680 580 Output Total 180 250 Balance 500 330 - Medications Medications: Current Medications Aspirin (Aspirin) 325 mg PEG DAILY [facility] Last Admin: 09/19/16 10:24 Dose: 325 mg Carvedilol (Coreg) 3.125 mg PEG BID [facility] Last Admin: 09/19/16 17:26 Dose: 3.125 mg Clopidogrel Bisulfate (Plavix) 75 mg PEG DAILY [facility] Last Admin: 09/19/16 10:24 Dose: 75 mg Enoxaparin Sodium (Lovenox) 30 mg SC DAILY [facility] Last Admin: 09/19/16 10:24 Dose: 30 mg Famotidine (Pepcid) 20 mg PEG DAILY [facility] Last Admin: 09/19/16 10:24 Dose: 20 mg Finasteride (Proscar) 5 mg PO DAILY [facility] Last Admin: 09/19/16 10:24 Dose: 5 mg Levetiracetam (Keppra) 500 mg PEG BID [facility] Last Admin: 09/19/16 17:26 Dose: 500 mg Tamsulosin HCl (Flomax) 0.4 mg PO DAILY [facility] Last Admin: 09/19/16 10:24 Dose: 0.4 mg - Labs Labs: 09/14/16 08:07 09/14/16 08:07 PT 10.6 SECONDS (9.7-12.2) 11/24/15 14:10 INR 1.0 11/24/15 14:10 APTT 25 SECONDS (21-34) 11/24/15 14:10 - Constitutional Appears: No Acute Distress - Head Exam Head Exam: ATRAUMATIC, NORMAL INSPECTION - Eye Exam Eye Exam: Normal appearance - ENT Exam ENT Exam: Mucous Membranes Moist Additional comments: trach collar noted - Respiratory Exam Respiratory Exam: NORMAL BREATHING PATTERN. absent: Respiratory Distress - Cardiovascular Exam Cardiovascular Exam: REGULAR RHYTHM, +S1, +S2 - GI/Abdominal Exam GI & Abdominal Exam: Soft, Normal Bowel Sounds Additional comments: PEG in place , no erythema - Exam Additional comments: [place] cath in place - Extremities Exam Additional comments: ecchymosis to left hand - Neurological Exam Neurological Exam: Awake. absent: Alert, Oriented x3 - Skin Skin Exam: Normal Color, Warm <Donnell Ying - Last Filed: 09/20/16 12:53> Objective - Vital Signs/Intake and Output Vital Signs (last 24 hours): Temp Pulse Resp BP Pulse Ox 98.6 F 75 20 112/71 100 09/20/16 08:00 09/20/16 08:00 09/20/16 08:00 09/20/16 08:00 09/20/16 08:00 Intake and Output: 09/20/16 09/20/16 06:59 18:59 Intake Total 1260 Output Total 500 Balance 760 - Medications Medications: Current Medications Aspirin (Aspirin) 325 mg PEG DAILY [facility] Last Admin: 09/20/16 11:14 Dose: 325 mg Carvedilol (Coreg) 3.125 mg PEG BID [facility] Last Admin: 09/20/16 11:14 Dose: 3.125 mg Clopidogrel Bisulfate (Plavix) 75 mg PEG DAILY [facility] Last Admin: 09/20/16 11:15 Dose: 75 mg Enoxaparin Sodium (Lovenox) 30 mg SC DAILY [facility] Last Admin: 09/20/16 11:15 Dose: 30 mg Famotidine (Pepcid) 20 mg PEG DAILY [facility] Last Admin: 09/20/16 11:14 Dose: 20 mg Finasteride (Proscar) 5 mg PO DAILY [facility] Last Admin: 09/20/16 11:22 Dose: 5 mg Levetiracetam (Keppra) 500 mg PEG BID [facility] Last Admin: 09/20/16 11:14 Dose: 500 mg Tamsulosin HCl (Flomax) 0.4 mg PO DAILY [facility] Last Admin: 09/20/16 11:15 Dose: 0.4 mg - Labs Labs: 09/14/16 08:07 09/14/16 08:07 PT 10.6 SECONDS (9.7-12.2) 11/24/15 14:10 INR 1.0 11/24/15 14:10 APTT 25 SECONDS (21-34) 11/24/15 14:10 Attending/Attestation - Attestation I have personally seen and examined this patient.: Yes I have fully participated in the care of the patient.: Yes I have reviewed all pertinent clinical information, including history, physical exam and plan: Yes Notes (Text): 09/20/16 12:52 Patient was seen and examined at bedside with the resident No change in clinical condition The 2 blisters on the right thigh are regressing. Continue to turn and position the patient every 2 hours to prevent decubitus ulcers The plan of care discussed with the resident
[2016-09-20] MEDS: levETIRAcetam 100 mg/ml (5ml) Oral Syringe PEG SCH ×2 (11:14→18:14)
[2016-09-20] MEDS: Enoxaparin 30 mg Syringe SC SCH (11:15)
--- NOTE | 2016-09-21 03:00 | CP.PCM.PN ---
<AnkitaMee - Last Filed: 09/21/16 02:57> Subjective - Date & Time of Evaluation Date of Evaluation: 09/21/16 Time of Evaluation: 02:57 - Subjective Subjective: Pt seen at bedside. ROS cannot be obtained. PEG tube , [place] catheter in place. Feed being tolerated. No adverse events per nursing. Objective - Vital Signs/Intake and Output Vital Signs (last 24 hours): Temp Pulse Resp BP Pulse Ox 97.4 F L 77 20 118/78 100 09/20/16 23:45 09/20/16 23:45 09/20/16 23:45 09/20/16 23:45 09/20/16 23:45 Intake and Output: 09/20/16 09/21/16 18:59 06:59 Intake Total 680 680 Output Total 250 850 Balance 430 -170 - Medications Medications: Current Medications Aspirin (Aspirin) 325 mg PEG DAILY [facility] Last Admin: 09/20/16 11:14 Dose: 325 mg Carvedilol (Coreg) 3.125 mg PEG BID [facility] Last Admin: 09/20/16 18:14 Dose: 3.125 mg Clopidogrel Bisulfate (Plavix) 75 mg PEG DAILY [facility] Last Admin: 09/20/16 11:15 Dose: 75 mg Enoxaparin Sodium (Lovenox) 30 mg SC DAILY [facility] Last Admin: 09/20/16 11:15 Dose: 30 mg Famotidine (Pepcid) 20 mg PEG DAILY [facility] Last Admin: 09/20/16 11:14 Dose: 20 mg Finasteride (Proscar) 5 mg PO DAILY [facility] Last Admin: 09/20/16 11:22 Dose: 5 mg Levetiracetam (Keppra) 500 mg PEG BID [facility] Last Admin: 09/20/16 18:14 Dose: 500 mg Tamsulosin HCl (Flomax) 0.4 mg PO DAILY [facility] Last Admin: 09/20/16 11:15 Dose: 0.4 mg - Labs Labs: 09/14/16 08:07 09/14/16 08:07 PT 10.6 SECONDS (9.7-12.2) 11/24/15 14:10 INR 1.0 11/24/15 14:10 APTT 25 SECONDS (21-34) 11/24/15 14:10 - Constitutional Appears: No Acute Distress - Head Exam Head Exam: ATRAUMATIC, NORMAL INSPECTION, NORMOCEPHALIC - ENT Exam Additional comments: thick oral secretions noted - Neck Exam Additional comments: trach in place - Respiratory Exam Respiratory Exam: NORMAL BREATHING PATTERN - Cardiovascular Exam Cardiovascular Exam: REGULAR RHYTHM, +S1, +S2 - GI/Abdominal Exam GI & Abdominal Exam: Soft, Normal Bowel Sounds Additional comments: PEG noted, no erythema - Exam Additional comments: [place] catheter in place - Extremities Exam Extremities Exam: Normal Inspection - Neurological Exam Neurological Exam: Awake. absent: Alert, Oriented x3 - Skin Skin Exam: Normal Color, Warm Assessment and Plan - Assessment and Plan (Free Text) Assessment: Anoxic encephalopathy * Continue to monitor weekly labs on Sundays * Continue with q2h turning * therapy * feeds through PEG site at 60cc/hr * suctioning trach routinely * Pending [facility] facility placement Hypoalbuminemia * Downtrending over course of weekly labs; (3.6 09/14) * Dietary recommended 30ml Prostat as dietary supplement Sacral Ulcers * Stage 2 ulcer, still ~3cm; continue ointment and frequent turning Q2H * 09/08: Stage 2 fissure, ~3 cm; continue ointment and frequent turning * 09/06: small sacral ulcer- continue with local wound care and repositioning, pink wound base * 08/31: Small stage 2 sacral ulcer. 3 x 0.2 cm, sensicare protective ointment 3x /day and frequent repositioning * 08/26: ~1.5 cm abrasion in sacral region, Wound Care Nurse asked to see pt, He said "he will take care of it" * 08/25: Abrasion now 15mm, will speak to wound care for recommendations, Again pt turning Q2H was stressed to nursing staff * 08/24: Abrasion is now ~ 10 mm, turning the pt Q2H was stressed to nursing staff to prevent ulceration * 08/20: Small 1 mm abrasion in sacral area. Informed nursing and instructed them to turn him intermittently. * Nursing to use barrier to prevent further progression of abrasion * Monitor with skin checks Urinary Retention * Good output- noncloudy * Flomax 0.4 mg PO daily * Proscar 5mg PO daily * monitor I's and O's * Continue monitoring patient and vitals Failure to thrive * Continue Current management * Continuous Tube feeds 60cc/hr. 250cc of free water flush q8H * Measure weight weekly. Respiratory failure * Continue Current management of trach collar and secretions- continue to suction * Monitor CAD (coronary artery disease) * Continue Current management * s/p cardiac stents on 06/13/15 * Continue ASA 325mg via PEG daily * Carvedilol 3.125mg PO BID * Continue Plavix 75mg via PEG daily Seizures * Continue Current management * Keppra 500mg PEG BID for seizure prophylaxis * Phenytoin d/c due to continued inc in LFT's on 07/21/16. Prophylactic measure * Pepcid 20 mg PEG daily * lovenox 30mg SC daily * SCDs * Pressure offloading Heel Boots in place <StepanDonnell M - Last Filed: 09/22/16 21:19> Objective - Vital Signs/Intake and Output Vital Signs (last 24 hours): Temp Pulse Resp BP Pulse Ox 98.0 F 80 20 112/68 100 09/22/16 17:43 09/22/16 17:43 09/22/16 17:43 09/22/16 17:43 09/22/16 17:43 Intake and Output: 09/22/16 09/23/16 18:59 06:59 Intake Total 680 Output Total 500 Balance 180 - Medications Medications: Current Medications Aspirin (Aspirin) 325 mg PEG DAILY [facility] Last Admin: 09/22/16 10:03 Dose: 325 mg Carvedilol (Coreg) 3.125 mg PEG BID [facility] Last Admin: 09/22/16 17:57 Dose: 3.125 mg Clopidogrel Bisulfate (Plavix) 75 mg PEG DAILY [facility] Last Admin: 09/22/16 10:03 Dose: 75 mg Enoxaparin Sodium (Lovenox) 30 mg SC DAILY [facility] Last Admin: 09/22/16 10:04 Dose: 30 mg Famotidine (Pepcid) 20 mg PEG DAILY [facility] Last Admin: 09/22/16 10:03 Dose: 20 mg Finasteride (Proscar) 5 mg PO DAILY [facility] Last Admin: 09/22/16 10:13 Dose: 5 mg Levetiracetam (Keppra) 500 mg PEG BID [facility] Last Admin: 09/22/16 17:56 Dose: 500 mg Tamsulosin HCl (Flomax) 0.4 mg PO DAILY [facility] Last Admin: 09/22/16 10:03 Dose: 0.4 mg - Labs Labs: 09/22/16 07:12 09/22/16 07:12 PT 10.6 SECONDS (9.7-12.2) 11/24/15 14:10 INR 1.0 11/24/15 14:10 APTT 25 SECONDS (21-34) 11/24/15 14:10 Attending/Attestation - Attestation I have personally seen and examined this patient.: Yes I have fully participated in the care of the patient.: Yes I have reviewed all pertinent clinical information, including history, physical exam and plan: Yes Notes (Text): 09/22/16 21:19 patient was seen and examined at bedside with the resident Continue current management No change in clinical condition Continue to turn and position every 2 hours prevent decubitus ulcers
[2016-09-21] MEDS: levETIRAcetam 100 mg/ml (5ml) Oral Syringe PEG SCH ×2 (11:00→17:37)
[2016-09-21] MEDS: Enoxaparin 30 mg Syringe SC SCH (11:05)
[2016-09-22 07:19] LABS: BASO % 0.4 % (0.0-2.0); EOS # 0.4 K/uL (0.0-0.7); EOS % 5.3 % (0.0-4.0); LYMPH % 24.9 % (20.0-40.0); MEAN CELL VOLUME 88.1 fL (80.0-94.0); MEAN CORPUSCULAR HEMOGLOBIN 28.9 pg (27.0-31.0); MEAN CORPUSCULAR HGB CONC 32.8 g/dL (33.0-37.0); MONO # 0.8 K/uL (0.0-0.8); MONO % 10.2 % (0.0-10.0); NEUT # 4.8 K/uL (1.8-7.0); NEUT % 59.2 % (50.0-75.0); RBC 4.15 Mil/uL (4.40-5.90); RED CELL DISTRIBUTION WIDTH 14.5 % (11.5-14.5)
--- NOTE | 2016-09-22 07:43 | CP.PCM.PN ---
<Imani Ramon - Last Filed: 09/22/16 15:38> Subjective - Date & Time of Evaluation Date of Evaluation: 09/22/16 Time of Evaluation: 07:45 - Subjective Subjective: PGY1 MEDICINE NOTE FOR DR. BETH Patient seen and evaluated at bedside resting comfortably. PEG tube in place- nonerythematous around site. Isosource @ 60cc/hr being tolerated [place] catheter in place Trach collar at 40% satting at 100% Offloading boots secure. No adverse events over night per nursing. ROS unobtainable. Objective - Vital Signs/Intake and Output Vital Signs (last 24 hours): Temp Pulse Resp BP Pulse Ox 98.5 F 75 20 104/72 100 09/22/16 00:00 09/22/16 00:00 09/22/16 00:00 09/22/16 00:00 09/22/16 00:00 Intake and Output: 09/22/16 09/22/16 06:59 18:59 Intake Total 1410 Output Total 1100 Balance 310 - Medications Medications: Current Medications Aspirin (Aspirin) 325 mg PEG DAILY [facility] Last Admin: 09/21/16 11:01 Dose: 325 mg Carvedilol (Coreg) 3.125 mg PEG BID [facility] Last Admin: 09/21/16 17:37 Dose: 3.125 mg Clopidogrel Bisulfate (Plavix) 75 mg PEG DAILY [facility] Last Admin: 09/21/16 11:05 Dose: 75 mg Enoxaparin Sodium (Lovenox) 30 mg SC DAILY [facility] Last Admin: 09/21/16 11:05 Dose: 30 mg Famotidine (Pepcid) 20 mg PEG DAILY [facility] Last Admin: 09/21/16 11:05 Dose: 20 mg Finasteride (Proscar) 5 mg PO DAILY [facility] Last Admin: 09/21/16 11:00 Dose: 5 mg Levetiracetam (Keppra) 500 mg PEG BID [facility] Last Admin: 09/21/16 17:37 Dose: 500 mg Tamsulosin HCl (Flomax) 0.4 mg PO DAILY [facility] Last Admin: 09/21/16 11:01 Dose: 0.4 mg - Labs Labs: 09/22/16 07:12 09/14/16 08:07 PT 10.6 SECONDS (9.7-12.2) 11/24/15 14:10 INR 1.0 01/02/16 14:10 APTT 25 SECONDS (21-34) 11/24/15 14:10 - Constitutional Appears: No Acute Distress - Head Exam Head Exam: ATRAUMATIC, NORMAL INSPECTION, NORMOCEPHALIC - Eye Exam Eye Exam: Normal appearance. absent: Conjunctival injection, Scleral icterus - ENT Exam ENT Exam: Mucous Membranes Moist - Neck Exam Additional comments: trach in place - Respiratory Exam Respiratory Exam: NORMAL BREATHING PATTERN - Cardiovascular Exam Cardiovascular Exam: REGULAR RHYTHM, RRR, +S1, +S2 - GI/Abdominal Exam GI & Abdominal Exam: Soft, Normal Bowel Sounds. absent: Tenderness Additional comments: PEG noted, no erythema - Exam Additional comments: [place] cath in place - Extremities Exam Extremities Exam: Normal Capillary Refill. absent: Pedal Edema Additional comments: 2 small blisters upper thigh - Back Exam Back Exam: NORMAL INSPECTION. absent: tenderness, vertebral tenderness Additional comments: sacral decubitus stage II ulcer- pink base. 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 3 x 0.2 cm, sensicare protective ointment 3x /day and frequent repositioning * 08/26: ~1.5 cm abrasion in sacral region, Wound Care Nurse asked to see pt, He said "he will take care of it" * 08/25: Abrasion now 15mm, will speak to wound care for recommendations, Again pt turning Q2H was stressed to nursing staff * 08/24: Abrasion is now ~ 10 mm, turning the pt Q2H was stressed to nursing staff to prevent ulceration * 08/20: Small 1 mm abrasion in sacral area. Informed nursing and instructed them to turn him intermittently. * Nursing to use barrier to prevent further progression of abrasion * Monitor with skin checks Urinary Retention * Good output- noncloudy * Flomax 0.4 mg PO daily * Proscar 5mg PO daily * monitor I's and O's * Continue monitoring patient and vitals Failure to thrive * Continue Current management * Continuous Tube feeds 60cc/hr. 250cc of free water flush q8H * Measure weight weekly. Respiratory failure * Continue Current management of trach collar and secretions- continue to suction * Monitor CAD (coronary artery disease) * Continue Current management * s/p cardiac stents on 06/13/15 * Continue ASA 325mg via PEG daily * Carvedilol 3.125mg PO BID * Continue Plavix 75mg via PEG daily Seizures * Continue Current management * Keppra 500mg PEG BID for seizure prophylaxis * Phenytoin d/c due to continued inc in LFT's on 07/21/16. Prophylactic measure * Pepcid 20 mg PEG daily * lovenox 30mg SC daily * SCDs * Pressure offloading Heel Boots in place <Nathaniel Beth - Last Filed: 09/22/16 19:32> Objective - Vital Signs/Intake and Output Vital Signs (last 24 hours): Temp Pulse Resp BP Pulse Ox 98.0 F 80 20 112/68 100 09/22/16 17:43 09/22/16 17:43 09/22/16 17:43 09/22/16 17:43 09/22/16 17:43 Intake and Output: 09/22/16 09/23/16 18:59 06:59 Intake Total 680 Output Total 500 Balance 180 - Medications Medications: Current Medications Aspirin (Aspirin) 325 mg PEG DAILY [facility] Last Admin: 09/22/16 10:03 Dose: 325 mg Carvedilol (Coreg) 3.125 mg PEG BID [facility] Last Admin: 09/22/16 17:57 Dose: 3.125 mg Clopidogrel Bisulfate (Plavix) 75 mg PEG DAILY [facility] Last Admin: 09/22/16 10:03 Dose: 75 mg Enoxaparin Sodium (Lovenox) 30 mg SC DAILY [facility] Last Admin: 09/22/16 10:04 Dose: 30 mg Famotidine (Pepcid) 20 mg PEG DAILY [facility] Last Admin: 09/22/16 10:03 Dose: 20 mg Finasteride (Proscar) 5 mg PO DAILY [facility] Last Admin: 09/22/16 10:13 Dose: 5 mg Levetiracetam (Keppra) 500 mg PEG BID [facility] Last Admin: 09/22/16 17:56 Dose: 500 mg Tamsulosin HCl (Flomax) 0.4 mg PO DAILY [facility] Last Admin: 09/22/16 10:03 Dose: 0.4 mg - Labs Labs: 09/22/16 07:12 09/22/16 07:12 PT 10.6 SECONDS (9.7-12.2) 11/24/15 14:10 INR 1.0 11/24/15 14:10 APTT 25 SECONDS (21-34) 11/24/15 14:10 Attending/Attestation - Attestation I have personally seen and examined this patient.: Yes I have fully participated in the care of the patient.: Yes I have reviewed all pertinent clinical information, including history, physical exam and plan: Yes Notes (Text): Patient admitted s/p cardiac arrest, subsequent anoxic encephalopathy; with prolonged hospital course due to inability to find placement; Active issues: Sacral decubitus ulcer - Linear 3 cm fissure appears healed; however, appears to be developing new ulcer with 3 cm area of erythema superior to previous ulcer ; getting protective ointment and frequent turning; no heal ulcers; will continue same treatment; Hypernatremia - Improved; serum Na 143 -> 139; continue tube feeds and free H20 flushes; CAD s/p WILLIE - Stable BP and volume status; on coreg 3.125 mg bid, ASA and plavix ; continue same. Hypoalbuminemia - Serum albumin 3.6 -> 3.4; started on once daily prostat over a week ago; will increase to tid. 09/22/16 19:27
[2016-09-22 08:03] LABS: ALBUMIN 3.4 g/dL (3.5-5.0)
[2016-09-22 08:06] LABS: AST/SGOT 25 U/L (17-59); GFR NON-AFRICAN AMERICAN > 60
[2016-09-22 08:07] LABS: ALT/SGPT 37 U/L (21-72); BLOOD UREA NITROGEN 21 mg/dL (9-20); CALCIUM 8.7 mg/dl (8.6-10.4)
[2016-09-22 08:08] LABS: ALB/GLOB RATIO 0.8 (1.0-2.1)
[2016-09-22] MEDS: Enoxaparin 30 mg Syringe SC SCH (10:04)
[2016-09-22] MEDS: levETIRAcetam 100 mg/ml (5ml) Oral Syringe PEG SCH ×2 (10:12→17:56)
--- NOTE | 2016-09-23 07:29 | CP.PCM.PN ---
Subjective - Date & Time of Evaluation Date of Evaluation: 09/23/16 Time of Evaluation: 07:30 - Subjective Subjective: PGY1 MEDICINE NOTE FOR DR. NORIEGA Patient seen and evaluated at bedside PEG tube in place. Isosource @ 60cc/hr being tolerated [place] catheter in place- no change in UO Trach collar at 40% satting at 100% Offloading boots secure. No adverse events overnight per as nursing. ROS unobtainable. Objective - Vital Signs/Intake and Output Vital Signs (last 24 hours): Temp Pulse Resp BP Pulse Ox 98 F 83 20 111/65 100 09/23/16 00:15 09/23/16 00:15 09/23/16 00:15 09/23/16 00:15 09/22/16 17:43 Intake and Output: 09/23/16 09/23/16 06:59 18:59 Output Total 950 Balance -950 - Medications Medications: Current Medications Aspirin (Aspirin) 325 mg PEG DAILY [facility] Last Admin: 09/22/16 10:03 Dose: 325 mg Carvedilol (Coreg) 3.125 mg PEG BID [facility] Last Admin: 09/22/16 17:57 Dose: 3.125 mg Clopidogrel Bisulfate (Plavix) 75 mg PEG DAILY [facility] Last Admin: 09/22/16 10:03 Dose: 75 mg Enoxaparin Sodium (Lovenox) 30 mg SC DAILY [facility] Last Admin: 09/22/16 10:04 Dose: 30 mg Famotidine (Pepcid) 20 mg PEG DAILY [facility] Last Admin: 09/22/16 10:03 Dose: 20 mg Finasteride (Proscar) 5 mg PO DAILY [facility] Last Admin: 09/22/16 10:13 Dose: 5 mg Levetiracetam (Keppra) 500 mg PEG BID [facility] Last Admin: 09/22/16 17:56 Dose: 500 mg Tamsulosin HCl (Flomax) 0.4 mg PO DAILY [facility] Last Admin: 09/22/16 10:03 Dose: 0.4 mg - Labs Labs: 09/22/16 07:12 09/22/16 07:12 PT 10.6 SECONDS (9.7-12.2) 11/24/15 14:10 INR 1.0 11/24/15 14:10 APTT 25 SECONDS (21-34) 11/24/15 14:10 - Constitutional Appears: No Acute Distress - Head Exam Head Exam: ATRAUMATIC, NORMAL INSPECTION, NORMOCEPHALIC - Eye Exam Eye Exam: Normal appearance. absent: Conjunctival injection, Scleral icterus Pupil Exam: NORMAL ACCOMODATION - ENT Exam ENT Exam: Mucous Membranes Moist - Neck Exam Additional comments: trach in place - Respiratory Exam Respiratory Exam: NORMAL BREATHING PATTERN - Cardiovascular Exam Cardiovascular Exam: REGULAR RHYTHM, +S1, +S2 - GI/Abdominal Exam GI & Abdominal Exam: Soft, Normal Bowel Sounds. absent: Tenderness Additional comments: PEG noted, no erythema - Exam Additional comments: [place] cath in place - Extremities Exam Extremities Exam: Normal Capillary Refill. absent: Pedal Edema Additional comments: 2 small clear blisters upper R thigh - Back Exam Back Exam: absent: muscle spasm, rash noted Additional comments: sacral decubitus stage II ulcer- pink base. - Neurological Exam Neurological Exam: Awake - Skin Skin Exam: Dry, Intact, Warm Assessment and Plan - Assessment and Plan (Free Text) Assessment: Anoxic encephalopathy * Monitor weekly labs on Sundays * Q2h turning * therapy * feeds through PEG site at 60cc/hr * suctioning trach routinely * [facility]ending [place] Hypoalbuminemia * Prostat 3x / day * Dietary recommended 30ml Prostat as dietary supplement Sacral Ulcers * Stage 2 ulcer, still ~3cm; continue ointment and frequent turning Q2H * 09/08: Stage 2 fissure, ~3 cm; continue ointment and frequent turning * 09/06: small sacral ulcer- continue with local wound care and repositioning, pink wound base * 08/31: Small stage 2 sacral ulcer. 3 x 0.2 cm, sensicare protective ointment 3x /day and frequent repositioning * 08/26: ~1.5 cm abrasion in sacral region, Wound Care Nurse asked to see pt, He said "he will take care of it" * 08/25: Abrasion now 15mm, will speak to wound care for recommendations, Again pt turning Q2H was stressed to nursing staff * 08/24: Abrasion is now ~ 10 mm, turning the pt Q2H was stressed to nursing staff to prevent ulceration * 08/20: Small 1 mm abrasion in sacral area. Informed nursing and instructed them to turn him intermittently. * Nursing to use barrier to prevent further progression of abrasion * Monitor with skin checks Urinary Retention * Good output- noncloudy * Flomax 0.4 mg PO daily * Proscar 5mg PO daily * monitor I's and O's * Continue monitoring patient and vitals Failure to thrive * Continue Current management * Continuous Tube feeds 60cc/hr. 250cc of free water flush q8H * Measure weight weekly. Respiratory failure * Continue Current management of trach collar and secretions- continue to suction * Monitor CAD (coronary artery disease) * Continue Current management * s/p cardiac stents on 06/13/15 * Continue ASA 325mg via PEG daily * Carvedilol 3.125mg PO BID * Continue Plavix 75mg via PEG daily Seizures * Continue Current management * Keppra 500mg PEG BID for seizure prophylaxis * Phenytoin d/c due to continued inc in LFT's on 07/21/16. Prophylactic measure * Pepcid 20 mg PEG daily * lovenox 30mg SC daily * SCDs * Pressure offloading Heel Boots in place
[2016-09-23] MEDS: Enoxaparin 30 mg Syringe SC SCH (11:04)
[2016-09-23] MEDS: levETIRAcetam 100 mg/ml (5ml) Oral Syringe PEG SCH ×2 (11:06→17:33)
[2016-09-24] MEDS: Enoxaparin 30 mg Syringe SC SCH (10:00)
[2016-09-24] MEDS: levETIRAcetam 100 mg/ml (5ml) Oral Syringe PEG SCH ×2 (10:00→17:52)
--- NOTE | 2016-09-24 10:24 | CP.PCM.PN ---
Subjective - Date & Time of Evaluation Date of Evaluation: 09/24/16 Time of Evaluation: 09:00 - Subjective Subjective: PGY1 MEDICINE NOTE FOR DR. NORIEGA Patient seen and evaluated at bedside PEG tube in place. Isosource @ 60cc/hr being tolerated. Advance to 65cc/hr with free water flush 300cc Q8H [place] catheter in place- no change in UO Trach collar at 40% satting at 100% Offloading boots secure. No adverse events overnight per as nursing. ROS unobtainable. Objective - Vital Signs/Intake and Output Vital Signs (last 24 hours): Temp Pulse Resp BP Pulse Ox 98.1 F 88 18 100/63 98 09/24/16 08:00 09/24/16 08:19 09/24/16 08:00 09/24/16 08:00 09/24/16 08:00 Intake and Output: 09/24/16 09/24/16 06:59 18:59 Intake Total 1510 Output Total 1150 Balance 360 - Medications Medications: Current Medications Aspirin (Aspirin) 325 mg PEG DAILY [facility] Last Admin: 09/24/16 10:00 Dose: 325 mg Carvedilol (Coreg) 3.125 mg PEG BID [facility] Last Admin: 09/24/16 10:00 Dose: 3.125 mg Clopidogrel Bisulfate (Plavix) 75 mg PEG DAILY [facility] Last Admin: 09/24/16 10:00 Dose: 75 mg Enoxaparin Sodium (Lovenox) 30 mg SC DAILY [facility] Last Admin: 09/24/16 10:00 Dose: 30 mg Famotidine (Pepcid) 20 mg PEG DAILY [facility] Last Admin: 09/24/16 10:00 Dose: 20 mg Finasteride (Proscar) 5 mg PO DAILY [facility] Last Admin: 09/24/16 10:00 Dose: 5 mg Levetiracetam (Keppra) 500 mg PEG BID [facility] Last Admin: 09/24/16 10:00 Dose: 500 mg Tamsulosin HCl (Flomax) 0.4 mg PO DAILY [facility] Last Admin: 09/24/16 10:00 Dose: 0.4 mg - Labs Labs: 09/22/16 07:12 09/22/16 07:12 PT 10.6 SECONDS (9.7-12.2) 11/24/15 14:10 INR 1.0 11/24/15 14:10 APTT 25 SECONDS (21-34) 11/24/15 14:10 - Constitutional Appears: No Acute Distress - Head Exam Head Exam: ATRAUMATIC, NORMAL INSPECTION, NORMOCEPHALIC - Eye Exam Eye Exam: Normal appearance. absent: Conjunctival injection, Scleral icterus - ENT Exam ENT Exam: Mucous Membranes Moist - Neck Exam Additional comments: trach collar in place - Respiratory Exam Respiratory Exam: Clear to Ausculation Bilateral, NORMAL BREATHING PATTERN. absent: Rales, Rhonchi, Wheezes - Cardiovascular Exam Cardiovascular Exam: REGULAR RHYTHM, RRR, +S1, +S2 - GI/Abdominal Exam GI & Abdominal Exam: Soft, Normal Bowel Sounds Additional comments: PEG noted, no erythema - Exam Additional comments: [place] cath in place - Back Exam Back Exam: absent: NORMAL INSPECTION, rash noted Additional comments: 5cm fissure with pink base noted - Neurological Exam Neurological Exam: Awake - Skin Skin Exam: Dry, Intact Assessment and Plan - Assessment and Plan (Free Text) Assessment: Anoxic encephalopathy * Monitor weekly labs on Sundays * Q2h turning * therapy * feeds through PEG site at 60cc/hr * suctioning trach routinely * Pending [facility] placement Hypoalbuminemia * Prostat 3x / day * Dietary recommended 30ml Prostat as dietary supplement Sacral Ulcers * Linear 5 cm fissure with area of erythema superior to previous ulcer * Nursing to use barrier to prevent further progression of abrasion * Monitor with skin checks Urinary Retention * Good output- noncloudy * Flomax 0.4 mg PO daily * Proscar 5mg PO daily * monitor I's and O's Failure to thrive * Continuous Tube feeds 65cc/hr goal with 300cc of free water flush q8H * Measure weight weekly. Respiratory failure * Continue Current management of trach collar and secretions- continue to suction CAD (coronary artery disease) * s/p cardiac stents on 06/13/15 * ASA 325mg via PEG daily * Carvedilol 3.125mg PO BID * Plavix 75mg via PEG daily Seizures * Keppra 500mg PEG BID for seizure prophylaxis Prophylactic measure * Pepcid 20 mg PEG daily * lovenox 30mg SC daily * SCDs * Pressure offloading Heel Boots in place
--- NOTE | 2016-09-25 07:10 | CP.PCM.PN ---
Subjective - Date & Time of Evaluation Date of Evaluation: 09/25/16 Time of Evaluation: 10:00 - Subjective Subjective: PGY1 MEDICINE NOTE FOR DR. NORIEGA Patient seen and evaluated at bedside PEG tube in place. Isosource @ 65cc/hr being tolerated with free water flush 300cc Q8H [place] catheter in place Trach collar at 40% satting at 100% Offloading boots secure. No adverse events overnight per as nursing. ROS unobtainable. Objective - Vital Signs/Intake and Output Vital Signs (last 24 hours): Temp Pulse Resp BP Pulse Ox 98.2 F 76 20 127/78 99 09/24/16 23:32 09/24/16 23:40 09/24/16 23:32 09/24/16 23:32 09/24/16 23:32 Intake and Output: 09/25/16 09/25/16 06:59 18:59 Intake Total 1640 Output Total 1000 Balance 640 - Medications Medications: Current Medications Aspirin (Aspirin) 325 mg PEG DAILY [facility] Last Admin: 09/24/16 10:00 Dose: 325 mg Carvedilol (Coreg) 3.125 mg PEG BID [facility] Last Admin: 09/24/16 17:52 Dose: 3.125 mg Clopidogrel Bisulfate (Plavix) 75 mg PEG DAILY [facility] Last Admin: 09/24/16 10:00 Dose: 75 mg Enoxaparin Sodium (Lovenox) 30 mg SC DAILY [facility] Last Admin: 09/24/16 10:00 Dose: 30 mg Famotidine (Pepcid) 20 mg PEG DAILY [facility] Last Admin: 09/24/16 10:00 Dose: 20 mg Finasteride (Proscar) 5 mg PO DAILY [facility] Last Admin: 09/24/16 10:00 Dose: 5 mg Levetiracetam (Keppra) 500 mg PEG BID [facility] Last Admin: 09/24/16 17:52 Dose: 500 mg Tamsulosin HCl (Flomax) 0.4 mg PO DAILY [facility] Last Admin: 09/24/16 10:00 Dose: 0.4 mg - Labs Labs: 09/22/16 07:12 09/22/16 07:12 PT 10.6 SECONDS (9.7-12.2) 11/24/15 14:10 INR 1.0 11/24/15 14:10 APTT 25 SECONDS (21-34) 11/24/15 14:10 - Constitutional Appears: No Acute Distress - Head Exam Head Exam: ATRAUMATIC, NORMAL INSPECTION, NORMOCEPHALIC - Eye Exam Eye Exam: Normal appearance - ENT Exam ENT Exam: Mucous Membranes Moist - Neck Exam Additional comments: trach collar in place - Respiratory Exam Respiratory Exam: NORMAL BREATHING PATTERN. absent: Rales, Rhonchi, Wheezes - Cardiovascular Exam Cardiovascular Exam: REGULAR RHYTHM, RRR, +S1, +S2 - GI/Abdominal Exam GI & Abdominal Exam: Soft, Normal Bowel Sounds Additional comments: PEG noted no erythema - Exam Additional comments: [place] cath in place - Back Exam Additional comments: 5cm fissure with pink base noted - Neurological Exam Neurological Exam: Awake Additional comments: responds to painful stimuli - Skin Skin Exam: Dry, Intact Assessment and Plan - Assessment and Plan (Free Text) Assessment: Anoxic encephalopathy * Monitor weekly labs on Sundays * Q2h turning * feeds through PEG site at 65cc/hr * suctioning trach routinely * Pending [facility] for [facility] [employer] facility placement Hypoalbuminemia * Prostat 30mL 3x / day Sacral Ulcers * Linear 5 cm fissure with area of erythema superior to previous ulcer * Nursing to use barrier to prevent further progression of abrasion * Monitor with skin checks and Q2H turning Urinary Retention * Good output- noncloudy * Flomax 0.4 mg PO daily * Proscar 5mg PO daily * monitor I's and O's Failure to thrive * Continuous Tube feeds 65cc/hr goal with 300cc of free water flush q8H * Measure weight weekly. Respiratory failure * Continue Current management of trach collar and secretions- continue to suction CAD (coronary artery disease) * s/p cardiac stents on 06/13/15 * ASA 325mg via PEG daily * Carvedilol 3.125mg PO BID * Plavix 75mg via PEG daily Seizures * Keppra 500mg PEG BID for seizure prophylaxis Prophylactic measure * Pepcid 20 mg PEG daily * lovenox 30mg SC daily * SCDs * Pressure offloading Heel Boots in place
[2016-09-25] MEDS: Enoxaparin 30 mg Syringe SC SCH (11:13)
[2016-09-25] MEDS: levETIRAcetam 100 mg/ml (5ml) Oral Syringe PEG SCH ×2 (11:14→16:59)
[2016-09-26] MEDS: Enoxaparin 30 mg Syringe SC SCH (10:31)
[2016-09-26] MEDS: levETIRAcetam 100 mg/ml (5ml) Oral Syringe PEG SCH ×2 (10:31→17:17)
--- NOTE | 2016-09-26 11:20 | CP.PCM.PN ---
<Leslie Coylemeerakevin - Last Filed: 09/26/16 16:11> Subjective - Date & Time of Evaluation Date of Evaluation: 09/26/16 Time of Evaluation: 10:00 - Subjective Subjective: PGY 1 Medicine note: Dr Beth's service-(Dr. Braswell covering) Pt seen and examined in no acute distress. Patient status remains the same. No fever or chills noted. Patient is minimally responsive to tactile stimuli and nonresponsive to verbal stimuli secondary to anoxic brain injury. Patient turned Q2H per nursing team to prevent bed sores. Patient is currently laying on his side. A ROS could not be obtained at this time. Objective - Vital Signs/Intake and Output Vital Signs (last 24 hours): Temp Pulse Resp BP Pulse Ox 97.6 F 62 20 127/85 99 09/26/16 08:25 09/26/16 08:25 09/26/16 08:25 09/26/16 08:25 09/26/16 08:25 Intake and Output: 09/26/16 09/26/16 06:59 18:59 Intake Total 1340 Output Total 700 Balance 640 - Medications Medications: Current Medications Aspirin (Aspirin) 325 mg PEG DAILY [facility] Last Admin: 09/26/16 10:31 Dose: 325 mg Carvedilol (Coreg) 3.125 mg PEG BID [facility] Last Admin: 09/26/16 10:31 Dose: 3.125 mg Clopidogrel Bisulfate (Plavix) 75 mg PEG DAILY [facility] Last Admin: 09/26/16 10:31 Dose: 75 mg Enoxaparin Sodium (Lovenox) 30 mg SC DAILY [facility] Last Admin: 09/26/16 10:31 Dose: 30 mg Famotidine (Pepcid) 20 mg PEG DAILY [facility] Last Admin: 09/26/16 10:31 Dose: 20 mg Finasteride (Proscar) 5 mg PO DAILY [facility] Last Admin: 09/26/16 10:31 Dose: 5 mg Levetiracetam (Keppra) 500 mg PEG BID [facility] Last Admin: 09/26/16 10:31 Dose: 500 mg Tamsulosin HCl (Flomax) 0.4 mg PO DAILY [facility] Last Admin: 09/26/16 10:31 Dose: 0.4 mg - Labs Labs: 09/22/16 07:12 09/22/16 07:12 PT 10.6 SECONDS (9.7-12.2) 11/24/15 14:10 INR 1.0 11/24/15 14:10 APTT 25 SECONDS (21-34) 11/24/15 14:10 - Constitutional Appears: No Acute Distress, Chronically Ill - Head Exam Head Exam: NORMAL INSPECTION, NORMOCEPHALIC - Eye Exam Eye Exam: PERRL Pupil Exam: PERRL - ENT Exam ENT Exam: Mucous Membranes Moist - Neck Exam Additional comments: trach collar in plce with minimal secretions - Respiratory Exam Respiratory Exam: absent: Wheezes, Respiratory Distress - Cardiovascular Exam Cardiovascular Exam: +S1, +S2. absent: Murmur - GI/Abdominal Exam GI & Abdominal Exam: Soft. absent: Distended, Firm, Guarding, Rigid, Tenderness Additional comments: PEG tube in place - Exam Additional comments: b[place] catheter in place - Extremities Exam Extremities Exam: Normal Capillary Refill. absent: Joint Swelling, Pedal Edema - Back Exam Additional comments: 5cm fissure with pink base noted - Neurological Exam Neurological Exam: Altered - Psychiatric Exam Psychiatric exam: Flat Affect - Skin Skin Exam: Dry, Intact, Normal Color, Warm Assessment and Plan - Assessment and Plan (Free Text) Assessment: Anoxic encephalopathy * Monitor weekly labs on Sundays * Q2h turns * feeds through PEG site at 65cc/hr * suctioning trach routinely * Pending group home facility placement Hypoalbuminemia * Prostat 30mL 3x / day Sacral Ulcers * Linear 5 cm fissure with area of erythema superior to previous ulcer * Nursing to use barrier to prevent further progression of abrasion * Continue to monitor with skin checks and Q2H turning Urinary Retention * Good output- noncloudy ( Approx 90 cc output in baker) * Flomax 0.4 mg PO daily * Proscar 5mg PO daily * monitor I's and O's Failure to thrive * Continuous Tube feeds 65cc/hr goal with 300cc of free water flush q8H * Measure weight weekly. Respiratory failure * Continue Current management of trach collar and secretions- continue to suction CAD (coronary artery disease) * s/p cardiac stents on 06/13/15 * ASA 325mg via PEG daily * Carvedilol 3.125mg PO BID * Plavix 75mg via PEG daily Seizures * Keppra 500mg PEG BID for seizure prophylaxis Prophylactic measure * Pepcid 20 mg PEG daily * lovenox 30mg SC daily * SCDs * Pressure offloading Heel Boots in place <Colleen Braswell V - Last Filed: 09/26/16 22:51> Objective - Vital Signs/Intake and Output Vital Signs (last 24 hours): Temp Pulse Resp BP Pulse Ox 98.4 F 62 20 109/73 100 09/26/16 16:00 09/26/16 16:02 09/26/16 16:00 09/26/16 16:00 09/26/16 16:00 Intake and Output: 09/26/16 09/27/16 18:59 06:59 Intake Total 860 Output Total 200 400 Balance 660 -400 - Medications Medications: Current Medications Aspirin (Aspirin) 325 mg PEG DAILY [facility] Last Admin: 09/26/16 10:31 Dose: 325 mg Carvedilol (Coreg) 3.125 mg PEG BID [facility] Last Admin: 09/26/16 17:17 Dose: 3.125 mg Clopidogrel Bisulfate (Plavix) 75 mg PEG DAILY [facility] Last Admin: 09/26/16 10:31 Dose: 75 mg Enoxaparin Sodium (Lovenox) 30 mg SC DAILY [facility] Last Admin: 09/26/16 10:31 Dose: 30 mg Famotidine (Pepcid) 20 mg PEG DAILY [facility] Last Admin: 09/26/16 10:31 Dose: 20 mg Finasteride (Proscar) 5 mg PO DAILY [facility] Last Admin: 09/26/16 10:31 Dose: 5 mg Levetiracetam (Keppra) 500 mg PEG BID [facility] Last Admin: 09/26/16 17:17 Dose: 500 mg Tamsulosin HCl (Flomax) 0.4 mg PO DAILY [facility] Last Admin: 09/26/16 10:31 Dose: 0.4 mg - Labs Labs: 09/22/16 07:12 09/22/16 07:12 PT 10.6 SECONDS (9.7-12.2) 11/24/15 14:10 INR 1.0 11/24/15 14:10 APTT 25 SECONDS (21-34) 11/24/15 14:10 Attending/Attestation - Attestation I have personally seen and examined this patient.: Yes I have fully participated in the care of the patient.: Yes I have reviewed all pertinent clinical information, including history, physical exam and plan: Yes
--- NOTE | 2016-09-27 02:13 | CP.PCM.PN ---
Addendum entered and electronically signed by Imani Ramon 09/27/16 03:10: please note time of note is incorrect. patient was seen at 2:05am 09/27 Original Note: <Imani Ramon - Last Filed: 09/27/16 02:10> Subjective - Date & Time of Evaluation Date of Evaluation: 09/27/16 Time of Evaluation: 14:05 - Subjective Subjective: PGY1 MEDICINE NOTE FOR DR. MAYNARD Patient seen and evaluated at bedside PEG tube in place. Isosource @ 65cc/hr being tolerated with free water flush 300cc Q8H Yoo catheter output 300cc dark noncloudy urine from 11pm-2am Trach collar at 40% satting at 100% Offloading boots secure. No adverse events overnight per as nursing. Responsive to painful tactile stimuli. Unresponsive to verbal stimuli. Patient lying on R side. ROS unobtainable. Objective - Vital Signs/Intake and Output Vital Signs (last 24 hours): Temp Pulse Resp BP Pulse Ox 98.2 F 88 18 106/68 98 09/26/16 23:39 09/26/16 23:39 09/26/16 23:39 09/26/16 23:39 09/26/16 23:39 Intake and Output: 09/26/16 09/27/16 18:59 06:59 Intake Total 860 820 Output Total 200 400 Balance 660 420 - Medications Medications: Current Medications Aspirin (Aspirin) 325 mg PEG DAILY [facility] Last Admin: 09/26/16 10:31 Dose: 325 mg Carvedilol (Coreg) 3.125 mg PEG BID [facility] Last Admin: 09/26/16 17:17 Dose: 3.125 mg Clopidogrel Bisulfate (Plavix) 75 mg PEG DAILY [facility] Last Admin: 09/26/16 10:31 Dose: 75 mg Enoxaparin Sodium (Lovenox) 30 mg SC DAILY [facility] Last Admin: 09/26/16 10:31 Dose: 30 mg Famotidine (Pepcid) 20 mg PEG DAILY [facility] Last Admin: 09/26/16 10:31 Dose: 20 mg Finasteride (Proscar) 5 mg PO DAILY [facility] Last Admin: 09/26/16 10:31 Dose: 5 mg Levetiracetam (Keppra) 500 mg PEG BID [facility] Last Admin: 09/26/16 17:17 Dose: 500 mg Tamsulosin HCl (Flomax) 0.4 mg PO DAILY [facility] Last Admin: 09/26/16 10:31 Dose: 0.4 mg - Labs Labs: 09/22/16 07:12 09/22/16 07:12 PT 10.6 SECONDS (9.7-12.2) 11/24/15 14:10 INR 1.0 11/24/15 14:10 APTT 25 SECONDS (21-34) 11/24/15 14:10 - Constitutional Appears: No Acute Distress - Head Exam Head Exam: ATRAUMATIC, NORMAL INSPECTION, NORMOCEPHALIC - Eye Exam Eye Exam: Normal appearance - ENT Exam ENT Exam: Mucous Membranes Moist - Neck Exam Additional comments: trach collar in place- minimal secretions - Respiratory Exam Respiratory Exam: absent: Rales, Rhonchi, Wheezes, Respiratory Distress - Cardiovascular Exam Cardiovascular Exam: +S1, +S2. 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 Respiratory failure * Continue Current management of trach collar and secretions- continue to suction CAD (coronary artery disease) * s/p cardiac stents on 06/13/15 * ASA 325mg via PEG daily * Carvedilol 3.125mg PO BID * Plavix 75mg via PEG daily Seizures * Keppra 500mg PEG BID for seizure prophylaxis Prophylactic measure * Pepcid 20 mg PEG daily * lovenox 30mg SC daily * SCDs * Pressure offloading Heel Boots in place <Colleen Maynard V - Last Filed: 09/27/16 13:51> Objective - Vital Signs/Intake and Output Vital Signs (last 24 hours): Temp Pulse Resp BP Pulse Ox 97.5 F L 72 18 110/67 95 09/27/16 08:16 09/27/16 08:16 09/27/16 08:16 09/27/16 08:16 09/27/16 08:16 Intake and Output: 09/27/16 09/27/16 06:59 18:59 Intake Total 1640 Output Total 800 Balance 840 - Medications Medications: Current Medications Aspirin (Aspirin) 325 mg PEG DAILY [facility] Last Admin: 09/27/16 10:25 Dose: 325 mg Carvedilol (Coreg) 3.125 mg PEG BID [facility] Last Admin: 09/27/16 10:25 Dose: 3.125 mg Clopidogrel Bisulfate (Plavix) 75 mg PEG DAILY [facility] Last Admin: 09/27/16 10:25 Dose: 75 mg Enoxaparin Sodium (Lovenox) 30 mg SC DAILY [facility] Last Admin: 09/27/16 10:26 Dose: 30 mg Famotidine (Pepcid) 20 mg PEG DAILY [facility] Last Admin: 09/27/16 10:26 Dose: 20 mg Finasteride (Proscar) 5 mg PO DAILY [facility] Last Admin: 09/27/16 10:25 Dose: 5 mg Levetiracetam (Keppra) 500 mg PEG BID [facility] Last Admin: 09/27/16 10:25 Dose: 500 mg Tamsulosin HCl (Flomax) 0.4 mg PO DAILY [facility] Last Admin: 09/27/16 10:25 Dose: 0.4 mg - Labs Labs: 09/22/16 07:12 09/22/16 07:12 PT 10.6 SECONDS (9.7-12.2) 11/24/15 14:10 INR 1.0 11/24/15 14:10 APTT 25 SECONDS (21-34) 11/24/15 14:10 Attending/Attestation - Attestation I have personally seen and examined this patient.: Yes I have fully participated in the care of the patient.: Yes I have reviewed all pertinent clinical information, including history, physical exam and plan: Yes
[2016-09-27] MEDS: levETIRAcetam 100 mg/ml (5ml) Oral Syringe PEG SCH ×2 (10:25→18:41)
[2016-09-27] MEDS: Enoxaparin 30 mg Syringe SC SCH (10:26)
--- NOTE | 2016-09-28 00:02 | CP.PCM.PN ---
Objective - Vital Signs/Intake and Output Vital Signs (last 24 hours): Temp Pulse Resp BP Pulse Ox 98.3 F 81 20 105/66 99 09/27/16 23:51 09/27/16 23:51 09/27/16 23:51 09/27/16 23:51 09/27/16 23:51 Intake and Output: 09/27/16 09/28/16 18:59 05:59 Intake Total 820 Output Total 450 650 Balance -450 170 - Medications Medications: Current Medications Aspirin (Aspirin) 325 mg PEG DAILY [facility] Last Admin: 09/27/16 10:25 Dose: 325 mg Carvedilol (Coreg) 3.125 mg PEG BID [facility] Last Admin: 09/27/16 18:40 Dose: 3.125 mg Clopidogrel Bisulfate (Plavix) 75 mg PEG DAILY [facility] Last Admin: 09/27/16 10:25 Dose: 75 mg Enoxaparin Sodium (Lovenox) 30 mg SC DAILY [facility] Last Admin: 09/27/16 10:26 Dose: 30 mg Famotidine (Pepcid) 20 mg PEG DAILY [facility] Last Admin: 09/27/16 10:26 Dose: 20 mg Finasteride (Proscar) 5 mg PO DAILY [facility] Last Admin: 09/27/16 10:25 Dose: 5 mg Levetiracetam (Keppra) 500 mg PEG BID [facility] Last Admin: 09/27/16 18:41 Dose: 500 mg Tamsulosin HCl (Flomax) 0.4 mg PO DAILY [facility] Last Admin: 09/27/16 10:25 Dose: 0.4 mg - Labs Labs: 09/22/16 07:12 09/22/16 07:12 PT 10.6 SECONDS (9.7-12.2) 11/24/15 14:10 INR 1.0 11/24/15 14:10 APTT 25 SECONDS (21-34) 11/24/15 14:10
--- NOTE | 2016-09-28 00:03 | CP.PCM.PN ---
<Imani Ramon - Last Filed: 09/28/16 00:35> Subjective - Date & Time of Evaluation Date of Evaluation: 09/28/16 Time of Evaluation: 12:05 - Subjective Subjective: PGY1 MEDICINE NOTE FOR DR. MAYNARD Patient seen and evaluated at bedside PEG tube in place. Isosource @ 65cc/hr being tolerated with free water flush 300cc Q8H Yoo catheter good UO Trach collar at 40% satting at 100% Offloading boots secure. No adverse events per nursing. Responsive to painful tactile stimuli. Unresponsive to verbal stimuli. ROS unobtainable. Objective - Vital Signs/Intake and Output Vital Signs (last 24 hours): Temp Pulse Resp BP Pulse Ox 98.3 F 81 20 105/66 99 09/27/16 23:51 09/27/16 23:51 09/27/16 23:51 09/27/16 23:51 09/27/16 23:51 Intake and Output: 09/27/16 09/28/16 18:59 05:59 Intake Total 820 Output Total 450 650 Balance -450 170 - Medications Medications: Current Medications Aspirin (Aspirin) 325 mg PEG DAILY [facility] Last Admin: 09/27/16 10:25 Dose: 325 mg Carvedilol (Coreg) 3.125 mg PEG BID [facility] Last Admin: 09/27/16 18:40 Dose: 3.125 mg Clopidogrel Bisulfate (Plavix) 75 mg PEG DAILY [facility] Last Admin: 09/27/16 10:25 Dose: 75 mg Enoxaparin Sodium (Lovenox) 30 mg SC DAILY [facility] Last Admin: 09/27/16 10:26 Dose: 30 mg Famotidine (Pepcid) 20 mg PEG DAILY [facility] Last Admin: 09/27/16 10:26 Dose: 20 mg Finasteride (Proscar) 5 mg PO DAILY [facility] Last Admin: 09/27/16 10:25 Dose: 5 mg Levetiracetam (Keppra) 500 mg PEG BID [facility] Last Admin: 09/27/16 18:41 Dose: 500 mg Tamsulosin HCl (Flomax) 0.4 mg PO DAILY [facility] Last Admin: 09/27/16 10:25 Dose: 0.4 mg - Labs Labs: 09/22/16 07:12 09/22/16 07:12 PT 10.6 SECONDS (9.7-12.2) 11/24/15 14:10 INR 1.0 11/24/15 14:10 APTT 25 SECONDS (21-34) 11/24/15 14:10 - Constitutional Appears: No Acute Distress - Head Exam Head Exam: ATRAUMATIC, NORMOCEPHALIC - Eye Exam Eye Exam: Normal appearance - ENT Exam ENT Exam: Mucous Membranes Moist - Neck Exam Additional comments: trach collar in place- minimal secretions - Respiratory Exam Respiratory Exam: NORMAL BREATHING PATTERN. absent: Rales, Rhonchi, Wheezes, Respiratory Distress - Cardiovascular Exam Cardiovascular Exam: RRR, +S1, +S2 - GI/Abdominal Exam GI & Abdominal Exam: Soft, Normal Bowel Sounds Additional comments: PEG in place- feeds tolerated @ 65cc/hr - Extremities Exam Extremities Exam: Normal Inspection Additional comments: offloading boots in place - Back Exam Additional comments: 5cm fissure with pink base - Neurological Exam Neurological Exam: Altered, Awake - Skin Skin Exam: Dry, Intact, Normal Color, Warm Assessment and Plan - Assessment and Plan (Free Text) Assessment: Anoxic encephalopathy * Monitor weekly labs on Mondays * Q2h turns * feeds through PEG @ 65cc/hr * suctioning trach routinely * 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 Respiratory failure * Continue Current management of trach collar and secretions- continue to suction CAD (coronary artery disease) * s/p cardiac stents on 06/13/15 * ASA 325mg via PEG daily * Carvedilol 3.125mg PO BID * Plavix 75mg via PEG daily Seizures * Keppra 500mg PEG BID for seizure prophylaxis Prophylactic measure * Pepcid 20 mg PEG daily * lovenox 30mg SC daily * SCDs * Pressure offloading Heel Boots in place <Colleen Maynard V - Last Filed: 09/28/16 15:44> Objective - Vital Signs/Intake and Output Vital Signs (last 24 hours): Temp Pulse Resp BP Pulse Ox 98.9 F 87 20 104/70 98 09/28/16 08:20 09/28/16 14:50 09/28/16 08:20 09/28/16 08:20 09/28/16 08:20 Intake and Output: 09/28/16 09/28/16 06:59 18:59 Intake Total Output Total 200 Balance -200 - Medications Medications: Current Medications Aspirin (Aspirin) 325 mg PEG DAILY [facility] Last Admin: 09/28/16 10:55 Dose: 325 mg Carvedilol (Coreg) 3.125 mg PEG BID [facility] Last Admin: 09/28/16 10:55 Dose: 3.125 mg Clopidogrel Bisulfate (Plavix) 75 mg PEG DAILY [facility] Last Admin: 09/28/16 10:55 Dose: 75 mg Enoxaparin Sodium (Lovenox) 30 mg SC DAILY [facility] Last Admin: 09/28/16 10:55 Dose: 30 mg Famotidine (Pepcid) 20 mg PEG DAILY [facility] Last Admin: 09/28/16 10:55 Dose: 20 mg Finasteride (Proscar) 5 mg PO DAILY [facility] Last Admin: 09/28/16 10:55 Dose: 5 mg Levetiracetam (Keppra) 500 mg PEG BID [facility] Last Admin: 09/28/16 10:55 Dose: 500 mg Tamsulosin HCl (Flomax) 0.4 mg PO DAILY [facility] Last Admin: 09/28/16 10:55 Dose: 0.4 mg - Labs Labs: 09/22/16 07:12 09/22/16 07:12 PT 10.6 SECONDS (9.7-12.2) 11/24/15 14:10 INR 1.0 11/24/15 14:10 APTT 25 SECONDS (21-34) 11/24/15 14:10 Attending/Attestation - Attestation I have personally seen and examined this patient.: Yes I have fully participated in the care of the patient.: Yes I have reviewed all pertinent clinical information, including history, physical exam and plan: Yes Notes (Text): Patient seen, examined and case discussed with day time resident. Agree with note by resident. Continue current management. Patient pending placement.
[2016-09-28] MEDS: Enoxaparin 30 mg Syringe SC SCH (10:55)
[2016-09-28] MEDS: levETIRAcetam 100 mg/ml (5ml) Oral Syringe PEG SCH ×2 (10:55→17:51)
--- NOTE | 2016-09-29 07:34 | CP.PCM.PN ---
<Imani Ramon - Last Filed: 09/29/16 17:23> Subjective - Date & Time of Evaluation Date of Evaluation: 09/29/16 Time of Evaluation: 07:00 - Subjective Subjective: PGY1 MEDICINE NOTE FOR DR. YING Patient seen and examined at bedside. Patient is clinically unchanged and had no acute events overnight. PEG tube in place. Isosource @ 65cc/hr being tolerated with free water flush 300cc Q8H Yoo catheter good UO Trach collar at 40% satting at 100% Offloading boots secure. Responsive to painful tactile stimuli. Unresponsive to verbal stimuli. ROS unobtainable. Objective - Vital Signs/Intake and Output Vital Signs (last 24 hours): Temp Pulse Resp BP Pulse Ox 98.3 F 82 20 113/75 99 09/28/16 23:36 09/29/16 04:10 09/28/16 23:36 09/28/16 23:36 09/28/16 23:36 Intake and Output: 09/29/16 09/29/16 06:59 18:59 Intake Total 1640 Output Total 500 Balance 1140 - Medications Medications: Current Medications Aspirin (Aspirin) 325 mg PEG DAILY [facility] Last Admin: 09/28/16 10:55 Dose: 325 mg Carvedilol (Coreg) 3.125 mg PEG BID [facility] Last Admin: 09/28/16 17:51 Dose: 3.125 mg Clopidogrel Bisulfate (Plavix) 75 mg PEG DAILY [facility] Last Admin: 09/28/16 10:55 Dose: 75 mg Enoxaparin Sodium (Lovenox) 30 mg SC DAILY [facility] Last Admin: 09/28/16 10:55 Dose: 30 mg Famotidine (Pepcid) 20 mg PEG DAILY [facility] Last Admin: 09/28/16 10:55 Dose: 20 mg Finasteride (Proscar) 5 mg PO DAILY [facility] Last Admin: 09/28/16 10:55 Dose: 5 mg Levetiracetam (Keppra) 500 mg PEG BID [facility] Last Admin: 09/28/16 17:51 Dose: 500 mg Tamsulosin HCl (Flomax) 0.4 mg PO DAILY [facility] Last Admin: 09/28/16 10:55 Dose: 0.4 mg - Labs Labs: 09/22/16 07:12 09/22/16 07:12 PT 10.6 SECONDS (9.7-12.2) 11/24/15 14:10 INR 1.0 11/24/15 14:10 APTT 25 SECONDS (21-34) 11/24/15 14:10 - Constitutional Appears: Non-toxic, No Acute Distress - Head Exam Head Exam: ATRAUMATIC, NORMOCEPHALIC - Eye Exam Eye Exam: Normal appearance - ENT Exam ENT Exam: Mucous Membranes Moist - Neck Exam Additional comments: trach collar in place- minimal secretions - Respiratory Exam Respiratory Exam: NORMAL BREATHING PATTERN. absent: Rales, Rhonchi, Wheezes, Respiratory Distress - Cardiovascular Exam Cardiovascular Exam: RRR, +S1, +S2 - GI/Abdominal Exam GI & Abdominal Exam: Soft, Normal Bowel Sounds Additional comments: PEG in place - Extremities Exam Additional comments: boots in place - Neurological Exam Neurological Exam: Awake - Skin Skin Exam: Dry, Intact, Warm Assessment and Plan - Assessment and Plan (Free Text) Assessment: Anoxic encephalopathy * Monitor weekly labs on Mondays * Q2h turns * feeds through PEG @ 65cc/hr * suctioning trach routinely * Pending longterm facility placement Hypoalbuminemia * Prostat 30mL 3x / day Sacral Ulcers * Linear 5 cm fissure with area of erythema superior to previous ulcer * Nursing to use barrier to prevent further progression of abrasion * Continue to monitor with skin checks and Q2H turning Urinary Retention * Yoo in place- monitor output * Flomax 0.4 mg PO daily * Proscar 5mg PO daily * monitor I's and O's Failure to thrive * Continuous Tube feeds 65cc/hr goal with 300cc of free water flush q8H * Measure weight weekly. Respiratory failure * Continue Current management of trach collar and secretions- continue to suction CAD (coronary artery disease) * s/p cardiac stents on 06/13/15 * ASA 325mg via PEG daily * Carvedilol 3.125mg PO BID * Plavix 75mg via PEG daily Seizures * Keppra 500mg PEG BID for seizure prophylaxis Prophylactic measure * Pepcid 20 mg PEG daily * lovenox 30mg SC daily * SCDs * Pressure offloading Heel Boots in place <Donnell Ying - Last Filed: 09/29/16 17:59> Objective - Vital Signs/Intake and Output Vital Signs (last 24 hours): Temp Pulse Resp BP Pulse Ox 97.5 F L 78 20 110/68 98 09/29/16 17:06 09/29/16 17:06 09/29/16 17:06 09/29/16 17:06 09/29/16 17:06 Intake and Output: 09/29/16 09/29/16 06:59 18:59 Intake Total 1640 955 Output Total 500 200 Balance 1140 755 - Medications Medications: Current Medications Aspirin (Aspirin) 325 mg PEG DAILY [facility] Last Admin: 09/29/16 10:31 Dose: 325 mg Carvedilol (Coreg) 3.125 mg PEG BID [facility] Last Admin: 09/29/16 17:26 Dose: 3.125 mg Clopidogrel Bisulfate (Plavix) 75 mg PEG DAILY [facility] Last Admin: 09/29/16 10:31 Dose: 75 mg Enoxaparin Sodium (Lovenox) 30 mg SC DAILY [facility] Last Admin: 09/29/16 10:31 Dose: 30 mg Famotidine (Pepcid) 20 mg PEG DAILY [facility] Last Admin: 09/29/16 10:31 Dose: 20 mg Finasteride (Proscar) 5 mg PO DAILY [facility] Last Admin: 09/29/16 10:30 Dose: 5 mg Levetiracetam (Keppra) 500 mg PEG BID [facility] Last Admin: 09/29/16 17:27 Dose: 500 mg Tamsulosin HCl (Flomax) 0.4 mg PO DAILY [facility] Last Admin: 09/29/16 10:31 Dose: 0.4 mg - Labs Labs: 09/29/16 09:00 09/29/16 09:00 PT 10.6 SECONDS (9.7-12.2) 11/24/15 14:10 INR 1.0 11/24/15 14:10 APTT 25 SECONDS (21-34) 11/24/15 14:10 Attending/Attestation - Attestation I have personally seen and examined this patient.: Yes I have fully participated in the care of the patient.: Yes I have reviewed all pertinent clinical information, including history, physical exam and plan: Yes Notes (Text): 09/29/16 17:59 Patient seen and examined at bedside with the resident No change in clinical condition Continue current management Turn and position the patient every 2 hours
[2016-09-29 09:33] LABS: BASO # 0.1 K/uL (0.0-0.2); BASO % 0.5 % (0.0-2.0); EOS # 0.4 K/uL (0.0-0.7); EOS % 3.6 % (0.0-4.0); HEMOGLOBIN 11.9 g/dL (12.0-18.0); LYMPH # 1.9 K/uL (1.0-4.3); LYMPH % 19.7 % (20.0-40.0); MEAN CELL VOLUME 87.5 fL (80.0-94.0); MEAN CORPUSCULAR HGB CONC 33.2 g/dL (33.0-37.0); MEAN PLATELET VOLUME 9.6 fL (7.2-11.7); MONO # 0.9 K/uL (0.0-0.8); MONO % 9.4 % (0.0-10.0); NEUT # 6.6 K/uL (1.8-7.0); NEUT % 66.8 % (50.0-75.0); RBC 4.08 Mil/uL (4.40-5.90); RED CELL DISTRIBUTION WIDTH 14.6 % (11.5-14.5); WHITE BLOOD COUNT 9.9 K/uL (4.8-10.8)
[2016-09-29 09:44] LABS: ALBUMIN 3.3 g/dL (3.5-5.0)
[2016-09-29 09:47] LABS: ALB/GLOB RATIO 0.7 (1.0-2.1); AST/SGOT 20 U/L (17-59); GFR NON-AFRICAN AMERICAN > 60
[2016-09-29 09:48] LABS: ALT/SGPT 35 U/L (21-72); BLOOD UREA NITROGEN 26 mg/dL (9-20); CALCIUM 8.5 mg/dl (8.6-10.4)
[2016-09-29] MEDS: Enoxaparin 30 mg Syringe SC SCH (10:31)
[2016-09-29] MEDS: levETIRAcetam 100 mg/ml (5ml) Oral Syringe PEG SCH ×2 (10:31→17:27)
--- NOTE | 2016-09-30 09:57 | CP.PCM.PN ---
Addendum entered and electronically signed by Imain Ramon 09/30/16 13:52: Feeds changed to Isosource @ 60cc/hr and Prostat once daily Original Note: <Imani Ramon - Last Filed: 09/30/16 10:23> Subjective - Date & Time of Evaluation Date of Evaluation: 09/30/16 Time of Evaluation: 10:15 - Subjective Subjective: PGY1 MEDICINE NOTE FOR DR. YING Patient seen and examined at bedside while nursing was cleaning him Patient had BM this morning Clinically unchanged No acute events overnight as per nursing Continues to respond to to painful tactile stimuli Continuous PEG feeds @ 65cc/hr tolerated with free water flush 300cc Q8H Yoo catheter ~80cc dark cherie Trach collar 30% satting 98% Offloading boots secure Sacral fissure closed- pink base ROS unobtainable Objective - Vital Signs/Intake and Output Vital Signs (last 24 hours): Temp Pulse Resp BP Pulse Ox 98.6 F 78 20 117/69 98 09/30/16 07:45 09/30/16 07:45 09/30/16 07:45 09/30/16 07:45 09/30/16 07:45 Intake and Output: 09/30/16 09/30/16 06:59 18:59 Intake Total 1640 Output Total 800 Balance 840 - Medications Medications: Current Medications Aspirin (Aspirin) 325 mg PEG DAILY [facility] Last Admin: 09/29/16 10:31 Dose: 325 mg Carvedilol (Coreg) 3.125 mg PEG BID [facility] Last Admin: 09/29/16 17:26 Dose: 3.125 mg Clopidogrel Bisulfate (Plavix) 75 mg PEG DAILY [facility] Last Admin: 09/29/16 10:31 Dose: 75 mg Enoxaparin Sodium (Lovenox) 30 mg SC DAILY [facility] Last Admin: 09/29/16 10:31 Dose: 30 mg Famotidine (Pepcid) 20 mg PEG DAILY [facility] Last Admin: 09/29/16 10:31 Dose: 20 mg Finasteride (Proscar) 5 mg PO DAILY [facility] Last Admin: 09/29/16 10:30 Dose: 5 mg Levetiracetam (Keppra) 500 mg PEG BID [facility] Last Admin: 09/29/16 17:27 Dose: 500 mg Tamsulosin HCl (Flomax) 0.4 mg PO DAILY [facility] Last Admin: 09/29/16 10:31 Dose: 0.4 mg - Labs Labs: 09/29/16 09:00 09/29/16 09:00 PT 10.6 SECONDS (9.7-12.2) 11/24/15 14:10 INR 1.0 11/24/15 14:10 APTT 25 SECONDS (21-34) 11/24/15 14:10 - Constitutional Appears: No Acute Distress, Chronically Ill - Head Exam Head Exam: ATRAUMATIC, NORMOCEPHALIC - Eye Exam Eye Exam: Normal appearance. absent: Conjunctival injection, Scleral icterus - ENT Exam ENT Exam: Mucous Membranes Moist - Neck Exam Additional comments: trach collar in place - Respiratory Exam Respiratory Exam: NORMAL BREATHING PATTERN. absent: Rales, Rhonchi, Wheezes, Respiratory Distress - Cardiovascular Exam Cardiovascular Exam: RRR, +S1, +S2. absent: Murmur - GI/Abdominal Exam GI & Abdominal Exam: Soft. absent: Tenderness Additional comments: PEG in place - Extremities Exam Additional comments: boots secure - Back Exam Additional comments: healing fissure- pink base noted - Neurological Exam Neurological Exam: Awake - Skin Skin Exam: Dry, Intact Assessment and Plan - Assessment and Plan (Free Text) Assessment: Anoxic encephalopathy * Monitor weekly labs on Mondays * Q2h turns * feeds through PEG @ 65cc/hr * suctioning trach routinely * Pending [facility] facility placement Hypoalbuminemia * Prostat 30mL 3x / day Sacral Ulcers * Healing linear 5 cm fissure with area of erythema superior to previous ulcer * Nursing to use barrier to prevent further progression of abrasion * Continue to monitor with skin checks and Q2H turning Urinary Retention * Yoo in place- monitor output * Flomax 0.4 mg PO daily * Proscar 5mg PO daily * monitor I's and O's Failure to thrive * Continuous Tube feeds 65cc/hr goal with 300cc of free water flush q8H * Measure weight weekly. Respiratory failure * Continue Current management of trach collar and secretions- continue to suction CAD (coronary artery disease) * s/p cardiac stents on 06/13/15 * ASA 325mg via PEG daily * Carvedilol 3.125mg PO BID * Plavix 75mg via PEG daily Seizures * Keppra 500mg PEG BID for seizure prophylaxis Prophylactic measure * Pepcid 20 mg PEG daily * lovenox 30mg SC daily * SCDs * Pressure offloading Heel Boots in place <Donnell Ying - Last Filed: 10/01/16 14:48> Objective - Vital Signs/Intake and Output Vital Signs (last 24 hours): Temp Pulse Resp BP Pulse Ox 97.8 F 66 20 110/77 99 10/01/16 09:30 10/01/16 09:30 10/01/16 09:30 10/01/16 09:30 10/01/16 09:30 Intake and Output: 10/01/16 10/01/16 06:59 18:59 Intake Total 1540 Output Total 1350 300 Balance 190 -300 - Medications Medications: Current Medications Aspirin (Aspirin) 325 mg PEG DAILY [facility] Last Admin: 10/01/16 10:41 Dose: 325 mg Carvedilol (Coreg) 3.125 mg PEG BID [facility] Last Admin: 10/01/16 10:41 Dose: 3.125 mg Clopidogrel Bisulfate (Plavix) 75 mg PEG DAILY [facility] Last Admin: 10/01/16 10:42 Dose: 75 mg Enoxaparin Sodium (Lovenox) 30 mg SC DAILY [facility] Last Admin: 10/01/16 10:42 Dose: 30 mg Famotidine (Pepcid) 20 mg PEG DAILY [facility] Last Admin: 10/01/16 10:42 Dose: 20 mg Finasteride (Proscar) 5 mg PO DAILY [facility] Last Admin: 10/01/16 10:42 Dose: 5 mg Levetiracetam (Keppra) 500 mg PEG BID [facility] Last Admin: 10/01/16 10:42 Dose: 500 mg Tamsulosin HCl (Flomax) 0.4 mg PO DAILY [facility] Last Admin: 10/01/16 10:42 Dose: 0.4 mg - Labs Labs: 09/29/16 09:00 09/29/16 09:00 PT 10.6 SECONDS (9.7-12.2) 11/24/15 14:10 INR 1.0 11/24/15 14:10 APTT 25 SECONDS (21-34) 11/24/15 14:10 Attending/Attestation - Attestation I have personally seen and examined this patient.: Yes I have fully participated in the care of the patient.: Yes I have reviewed all pertinent clinical information, including history, physical exam and plan: Yes Notes (Text): 10/01/16 14:47 Patient was seen and examined at bedside No change in clinical condition Continue current management
[2016-09-30] MEDS: Enoxaparin 30 mg Syringe SC SCH (10:25)
[2016-09-30] MEDS: levETIRAcetam 100 mg/ml (5ml) Oral Syringe PEG SCH ×2 (10:25→17:13)
--- NOTE | 2016-10-01 07:23 | CP.PCM.PN ---
<Imani Ramon - Last Filed: 10/01/16 13:51> Subjective - Date & Time of Evaluation Date of Evaluation: 10/01/16 Time of Evaluation: 08:45 - Subjective Subjective: PGY1 MEDICINE NOTE FOR DR. YING Patient seen and examined at bedside this morning Clinically unchanged No acute events overnight as per nursing Continues to respond to to painful tactile stimuli Continuous PEG feeds @ 60cc/hr tolerated with free water flush 300cc Q8H Prostat 1 daily as per dietary reccs Yoo catheter ~600cc overnight Trach collar 30% satting 98% Offloading boots secure Sacral fissure closed- pink base ROS unobtainable Objective - Vital Signs/Intake and Output Vital Signs (last 24 hours): Temp Pulse Resp BP Pulse Ox 98.1 F 64 18 111/69 100 10/01/16 00:00 10/01/16 00:00 10/01/16 00:00 10/01/16 00:00 10/01/16 00:00 Intake and Output: 10/01/16 10/01/16 06:59 18:59 Intake Total 1540 Output Total 1350 Balance 190 - Medications Medications: Current Medications Aspirin (Aspirin) 325 mg PEG DAILY [facility] Last Admin: 09/30/16 10:25 Dose: 325 mg Carvedilol (Coreg) 3.125 mg PEG BID [facility] Last Admin: 09/30/16 17:12 Dose: 3.125 mg Clopidogrel Bisulfate (Plavix) 75 mg PEG DAILY [facility] Last Admin: 09/30/16 10:25 Dose: 75 mg Enoxaparin Sodium (Lovenox) 30 mg SC DAILY [facility] Last Admin: 09/30/16 10:25 Dose: 30 mg Famotidine (Pepcid) 20 mg PEG DAILY [facility] Last Admin: 09/30/16 10:25 Dose: 20 mg Finasteride (Proscar) 5 mg PO DAILY [facility] Last Admin: 09/30/16 10:25 Dose: 5 mg Levetiracetam (Keppra) 500 mg PEG BID [facility] Last Admin: 09/30/16 17:13 Dose: 500 mg Tamsulosin HCl (Flomax) 0.4 mg PO DAILY [facility] Last Admin: 09/30/16 10:25 Dose: 0.4 mg - Labs Labs: 09/29/16 09:00 09/29/16 09:00 PT 10.6 SECONDS (9.7-12.2) 11/24/15 14:10 INR 1.0 11/24/15 14:10 APTT 25 SECONDS (21-34) 11/24/15 14:10 - Constitutional Appears: No Acute Distress, Chronically Ill - Head Exam Head Exam: ATRAUMATIC, NORMOCEPHALIC - Eye Exam Eye Exam: Normal appearance. absent: Conjunctival injection, Scleral icterus - ENT Exam ENT Exam: Mucous Membranes Moist - Neck Exam Additional comments: trach collar in place - Respiratory Exam Respiratory Exam: NORMAL BREATHING PATTERN. absent: Rales, Rhonchi, Wheezes, Respiratory Distress - Cardiovascular Exam Cardiovascular Exam: RRR, +S1, +S2. absent: Murmur - GI/Abdominal Exam GI & Abdominal Exam: Soft. 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 Respiratory failure * Continue Current management of trach collar and secretions- continue to suction CAD (coronary artery disease) * s/p cardiac stents on 06/13/15 * ASA 325mg via PEG daily * Carvedilol 3.125mg PO BID * Plavix 75mg via PEG daily Seizures * Keppra 500mg PEG BID for seizure prophylaxis Prophylactic measure * Pepcid 20 mg PEG daily * lovenox 30mg SC daily * SCDs * Pressure offloading Heel Boots in place <Donnell Ying - Last Filed: 10/01/16 17:15> Objective - Vital Signs/Intake and Output Vital Signs (last 24 hours): Temp Pulse Resp BP Pulse Ox 98.2 F 70 20 109/70 98 10/01/16 16:32 10/01/16 16:32 10/01/16 16:32 10/01/16 16:32 10/01/16 16:32 Intake and Output: 10/01/16 10/01/16 06:59 18:59 Intake Total 1540 1080 Output Total 1350 300 Balance 190 780 - Medications Medications: Current Medications Aspirin (Aspirin) 325 mg PEG DAILY [facility] Last Admin: 10/01/16 10:41 Dose: 325 mg Carvedilol (Coreg) 3.125 mg PEG BID [facility] Last Admin: 10/01/16 10:41 Dose: 3.125 mg Clopidogrel Bisulfate (Plavix) 75 mg PEG DAILY [facility] Last Admin: 10/01/16 10:42 Dose: 75 mg Enoxaparin Sodium (Lovenox) 30 mg SC DAILY [facility] Last Admin: 10/01/16 10:42 Dose: 30 mg Famotidine (Pepcid) 20 mg PEG DAILY [facility] Last Admin: 10/01/16 10:42 Dose: 20 mg Finasteride (Proscar) 5 mg PO DAILY [facility] Last Admin: 10/01/16 10:42 Dose: 5 mg Levetiracetam (Keppra) 500 mg PEG BID [facility] Last Admin: 10/01/16 10:42 Dose: 500 mg Tamsulosin HCl (Flomax) 0.4 mg PO DAILY [facility] Last Admin: 10/01/16 10:42 Dose: 0.4 mg - Labs Labs: 09/29/16 09:00 09/29/16 09:00 PT 10.6 SECONDS (9.7-12.2) 11/24/15 14:10 INR 1.0 11/24/15 14:10 APTT 25 SECONDS (21-34) 11/24/15 14:10 Attending/Attestation - Attestation I have personally seen and examined this patient.: Yes I have fully participated in the care of the patient.: Yes I have reviewed all pertinent clinical information, including history, physical exam and plan: Yes Notes (Text): 10/01/16 17:15 Patient was seen and examined at bedside with the resident No change in clinical condition and continue current management Agree with the above history and physical and assessment/plan by the resident
[2016-10-01] MEDS: levETIRAcetam 100 mg/ml (5ml) Oral Syringe PEG SCH ×2 (10:42→18:00)
[2016-10-01] MEDS: Enoxaparin 30 mg Syringe SC SCH (10:42)
--- NOTE | 2016-10-02 07:29 | CP.PCM.PN ---
<Imani Ramon - Last Filed: 10/02/16 16:00> Subjective - Date & Time of Evaluation Date of Evaluation: 10/02/16 Time of Evaluation: 07:15 - Subjective Subjective: PGY1 MEDICINE NOTE FOR DR. YING Patient seen and examined at bedside this morning Clinically unchanged No acute events overnight as per nursing Continues to respond to to painful tactile stimuli Continuous PEG feeds @ 60cc/hr tolerated with free water flush 300cc Q8H Prostat 1 daily as per dietary reccs Trach collar 30% satting 100% VSS Offloading boots secure ROS unobtainable Objective - Vital Signs/Intake and Output Vital Signs (last 24 hours): Temp Pulse Resp BP Pulse Ox 97.5 F L 60 20 116/73 99 10/01/16 23:53 10/01/16 23:53 10/01/16 23:53 10/01/16 23:53 10/01/16 23:53 Intake and Output: 10/02/16 10/02/16 06:59 18:59 Intake Total 1550 Output Total 1400 Balance 150 - Medications Medications: Current Medications Aspirin (Aspirin) 325 mg PEG DAILY [facility] Last Admin: 10/01/16 10:41 Dose: 325 mg Carvedilol (Coreg) 3.125 mg PEG BID [facility] Last Admin: 10/01/16 18:00 Dose: 3.125 mg Clopidogrel Bisulfate (Plavix) 75 mg PEG DAILY [facility] Last Admin: 10/01/16 10:42 Dose: 75 mg Enoxaparin Sodium (Lovenox) 30 mg SC DAILY [facility] Last Admin: 10/01/16 10:42 Dose: 30 mg Famotidine (Pepcid) 20 mg PEG DAILY [facility] Last Admin: 10/01/16 10:42 Dose: 20 mg Finasteride (Proscar) 5 mg PO DAILY [facility] Last Admin: 10/01/16 10:42 Dose: 5 mg Levetiracetam (Keppra) 500 mg PEG BID [facility] Last Admin: 10/01/16 18:00 Dose: 500 mg Tamsulosin HCl (Flomax) 0.4 mg PO DAILY [facility] Last Admin: 10/01/16 10:42 Dose: 0.4 mg - Labs Labs: 09/29/16 09:00 09/29/16 09:00 PT 10.6 SECONDS (9.7-12.2) 11/24/15 14:10 INR 1.0 11/24/15 14:10 APTT 25 SECONDS (21-34) 11/24/15 14:10 - Constitutional Appears: No Acute Distress, Chronically Ill - Head Exam Head Exam: ATRAUMATIC, NORMOCEPHALIC - Eye Exam Eye Exam: Normal appearance. absent: Conjunctival injection, Scleral icterus - ENT Exam ENT Exam: Mucous Membranes Moist - Neck Exam Additional comments: trach collar in place - Respiratory Exam Respiratory Exam: NORMAL BREATHING PATTERN. absent: Rales, Rhonchi, Wheezes - Cardiovascular Exam Cardiovascular Exam: REGULAR RHYTHM, RRR, +S1, +S2 - GI/Abdominal Exam GI & Abdominal Exam: Soft. 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 Respiratory failure * Continue Current management of trach collar and secretions- continue to suction CAD (coronary artery disease) * s/p cardiac stents on 06/13/15 * ASA 325mg via PEG daily * Carvedilol 3.125mg PO BID * Plavix 75mg via PEG daily Seizures * Keppra 500mg PEG BID for seizure prophylaxis Prophylactic measure * Pepcid 20 mg PEG daily * Lovenox 30mg SC daily * SCDs * Pressure offloading Heel Boots in place <Donnell Ying - Last Filed: 10/03/16 10:26> Objective - Vital Signs/Intake and Output Vital Signs (last 24 hours): Temp Pulse Resp BP Pulse Ox 98.4 F 101 H 20 138/83 95 10/03/16 08:10 10/03/16 08:10 10/03/16 08:10 10/03/16 08:10 10/03/16 08:10 Intake and Output: 10/03/16 10/03/16 06:59 18:59 Intake Total 1550 Output Total 1300 Balance 250 - Medications Medications: Current Medications Aspirin (Aspirin) 325 mg PEG DAILY [facility] Last Admin: 10/02/16 11:00 Dose: 325 mg Carvedilol (Coreg) 3.125 mg PEG BID [facility] Last Admin: 10/02/16 18:18 Dose: 3.125 mg Clopidogrel Bisulfate (Plavix) 75 mg PEG DAILY [facility] Last Admin: 10/02/16 11:00 Dose: 75 mg Enoxaparin Sodium (Lovenox) 30 mg SC DAILY [facility] Last Admin: 10/02/16 11:00 Dose: 30 mg Famotidine (Pepcid) 20 mg PEG DAILY [facility] Last Admin: 10/02/16 11:00 Dose: 20 mg Finasteride (Proscar) 5 mg PO DAILY [facility] Last Admin: 10/02/16 11:00 Dose: 5 mg Levetiracetam (Keppra) 500 mg PEG BID [facility] Last Admin: 10/02/16 18:16 Dose: 500 mg Tamsulosin HCl (Flomax) 0.4 mg PO DAILY [facility] Last Admin: 10/02/16 11:00 Dose: 0.4 mg - Labs Labs: 09/29/16 09:00 09/29/16 09:00 PT 10.6 SECONDS (9.7-12.2) 11/24/15 14:10 INR 1.0 11/24/15 14:10 APTT 25 SECONDS (21-34) 11/24/15 14:10 Attending/Attestation - Attestation I have personally seen and examined this patient.: Yes I have fully participated in the care of the patient.: Yes I have reviewed all pertinent clinical information, including history, physical exam and plan: Yes Notes (Text): 10/03/16 10:25 Patient is seen and examined at bedside with the resident No change in clinical condition Continue current management The plan after discussion with the resident
[2016-10-02] MEDS: Enoxaparin 30 mg Syringe SC SCH (11:00)
[2016-10-02] MEDS: levETIRAcetam 100 mg/ml (5ml) Oral Syringe PEG SCH ×2 (11:00→18:16)
[2016-10-03] MEDS: Enoxaparin 30 mg Syringe SC SCH (11:13)
[2016-10-03] MEDS: levETIRAcetam 100 mg/ml (5ml) Oral Syringe PEG SCH ×2 (11:14→17:52)
--- NOTE | 2016-10-03 15:08 | CP.PCM.PN ---
<Imani Ramon - Last Filed: 10/03/16 15:14> Subjective - Date & Time of Evaluation Date of Evaluation: 10/03/16 Time of Evaluation: 07:00 - Subjective Subjective: PGY1 MEDICINE NOTE FOR DR. YING Patient seen and examined at bedside this morning Clinically unchanged Patient UO 1300ml in 24hr- dark and slightly cloudy Patient afebrile overnight No acute events overnight as per nursing R hand and arm slightly swollen Continues to respond to to painful tactile stimuli Continuous PEG feeds @ 60cc/hr tolerated with free water flush 300cc Q8H Prostat 1 daily as per dietary reccs Trach collar 30% satting 95% VSS Offloading boots secure ROS unobtainable Objective - Vital Signs/Intake and Output Vital Signs (last 24 hours): Temp Pulse Resp BP Pulse Ox 98.4 F 101 H 20 138/83 95 10/03/16 08:10 10/03/16 08:10 10/03/16 08:10 10/03/16 08:10 10/03/16 08:10 Intake and Output: 10/03/16 10/03/16 06:59 18:59 Intake Total 1550 Output Total 1300 Balance 250 - Medications Medications: Current Medications Aspirin (Aspirin) 325 mg PEG DAILY [facility] Last Admin: 10/03/16 11:13 Dose: 325 mg Carvedilol (Coreg) 3.125 mg PEG BID [facility] Last Admin: 10/03/16 11:13 Dose: 3.125 mg Clopidogrel Bisulfate (Plavix) 75 mg PEG DAILY [facility] Last Admin: 10/03/16 11:13 Dose: 75 mg Enoxaparin Sodium (Lovenox) 30 mg SC DAILY [facility] Last Admin: 10/03/16 11:13 Dose: 30 mg Famotidine (Pepcid) 20 mg PEG DAILY [facility] Last Admin: 10/03/16 11:13 Dose: Not Given Finasteride (Proscar) 5 mg PO DAILY [facility] Last Admin: 10/03/16 11:18 Dose: 5 mg Levetiracetam (Keppra) 500 mg PEG BID [facility] Last Admin: 10/03/16 11:14 Dose: 500 mg Tamsulosin HCl (Flomax) 0.4 mg PO DAILY [facility] Last Admin: 10/03/16 11:13 Dose: 0.4 mg - Labs Labs: 09/29/16 09:00 09/29/16 09:00 PT 10.6 SECONDS (9.7-12.2) 11/24/15 14:10 INR 1.0 11/24/15 14:10 APTT 25 SECONDS (21-34) 11/24/15 14:10 - Constitutional Appears: No Acute Distress, Chronically Ill - Head Exam Head Exam: ATRAUMATIC, NORMOCEPHALIC - Eye Exam Eye Exam: Normal appearance. absent: Conjunctival injection, Scleral icterus - ENT Exam ENT Exam: Mucous Membranes Moist - Neck Exam Additional comments: trach collar in place- minimal secretions - Respiratory Exam Respiratory Exam: NORMAL BREATHING PATTERN. absent: Rales, Rhonchi, Wheezes - Cardiovascular Exam Cardiovascular Exam: REGULAR RHYTHM, RRR, +S1, +S2 - GI/Abdominal Exam GI & Abdominal Exam: Soft. 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 Respiratory failure * Continue Current management of trach collar and secretions- continue to suction CAD (coronary artery disease) * s/p cardiac stents on 06/13/15 * ASA 325mg via PEG daily * Carvedilol 3.125mg PO BID * Plavix 75mg via PEG daily Seizures * Keppra 500mg PEG BID for seizure prophylaxis Prophylactic measure * Pepcid 20 mg PEG daily * Lovenox 30mg SC daily * SCDs * Pressure offloading Heel Boots in place <Donnell Ying - Last Filed: 10/03/16 18:29> Objective - Vital Signs/Intake and Output Vital Signs (last 24 hours): Temp Pulse Resp BP Pulse Ox 97.7 F 101 H 20 125/82 100 10/03/16 16:00 10/03/16 16:10 10/03/16 16:00 10/03/16 16:00 10/03/16 16:00 Intake and Output: 10/03/16 10/03/16 06:59 18:59 Intake Total 1550 480 Output Total 1300 Balance 250 480 - Medications Medications: Current Medications Aspirin (Aspirin) 325 mg PEG DAILY [facility] Last Admin: 10/03/16 11:13 Dose: 325 mg Carvedilol (Coreg) 3.125 mg PEG BID [facility] Last Admin: 10/03/16 17:52 Dose: 3.125 mg Clopidogrel Bisulfate (Plavix) 75 mg PEG DAILY [facility] Last Admin: 10/03/16 11:13 Dose: 75 mg Enoxaparin Sodium (Lovenox) 30 mg SC DAILY [facility] Last Admin: 10/03/16 11:13 Dose: 30 mg Famotidine (Pepcid) 20 mg PEG DAILY [facility] Last Admin: 10/03/16 12:00 Dose: 20 mg Finasteride (Proscar) 5 mg PO DAILY [facility] Last Admin: 10/03/16 11:18 Dose: 5 mg Levetiracetam (Keppra) 500 mg PEG BID [facility] Last Admin: 10/03/16 17:52 Dose: 500 mg Tamsulosin HCl (Flomax) 0.4 mg PO DAILY [facility] Last Admin: 10/03/16 11:13 Dose: 0.4 mg - Labs Labs: 09/29/16 09:00 09/29/16 09:00 PT 10.6 SECONDS (9.7-12.2) 11/24/15 14:10 INR 1.0 11/24/15 14:10 APTT 25 SECONDS (21-34) 11/24/15 14:10 Attending/Attestation - Attestation I have personally seen and examined this patient.: Yes I have fully participated in the care of the patient.: Yes I have reviewed all pertinent clinical information, including history, physical exam and plan: Yes Notes (Text): 10/03/16 18:28 Patient was seen and examined at bedside with the resident Urine appears cloudy We will send the urine for urinalysis and urine culture Continue current management Agree with the above history and physical and assessment/plan but the resident
[2016-10-03 19:48] LABS: SQUAMOUS EPITHIAL 1 /hpf (0-5); URINE AMORPHOUS SEDIMENT OCC /ul (<OCC); URINE BACTERIA MANY (<OCC); URINE BILIRUBIN NEGATIVE (NEGATIVE); URINE BLOOD 2+ (NEGATIVE); URINE CLARITY Turbid (Clear); URINE GLUCOSE (UA) NORMAL (Normal); URINE LEUKOCYTE ESTERASE 3+ Leu/uL (Negative); URINE PROTEIN 2+ mg/dL (NEGATIVE); URINE TRIPLE PHOSPHATE CRYSTAL MANY /hpf (<OCC); URINE UROBILINOGEN NORMAL mg/dL (0.2-1.0)
[2016-10-03 20:03] LABS: URINE COLOR YELLOW (YELLOW)
--- NOTE | 2016-10-04 03:22 | CP.PCM.PN ---
Subjective - Date & Time of Evaluation Date of Evaluation: 10/04/16 Time of Evaluation: 03:20 - Subjective Subjective: Patient seen and examined at bedside this morning Clinically unchanged Patient UO 1300ml in 24hr- dark and slightly cloudy Patient afebrile overnight No acute events overnight as per nursing R hand and arm slightly swollen Continues to respond to to painful tactile stimuli Continuous PEG feeds @ 60cc/hr tolerated with free water flush 300cc Q8H Prostat 1 daily as per dietary reccs Trach collar 30% satting 95% VSS Offloading boots secure ROS unobtainable Objective - Vital Signs/Intake and Output Vital Signs (last 24 hours): Temp Pulse Resp BP Pulse Ox 97.8 F 87 20 99/65 L 77 L 10/03/16 23:43 10/03/16 23:43 10/03/16 23:43 10/03/16 23:43 10/03/16 23:43 Intake and Output: 10/03/16 10/04/16 18:59 06:59 Intake Total 480 Balance 480 - Medications Medications: Current Medications Aspirin (Aspirin) 325 mg PEG DAILY [facility] Last Admin: 10/03/16 11:13 Dose: 325 mg Carvedilol (Coreg) 3.125 mg PEG BID [facility] Last Admin: 10/03/16 17:52 Dose: 3.125 mg Clopidogrel Bisulfate (Plavix) 75 mg PEG DAILY [facility] Last Admin: 10/03/16 11:13 Dose: 75 mg Enoxaparin Sodium (Lovenox) 30 mg SC DAILY [facility] Last Admin: 10/03/16 11:13 Dose: 30 mg Famotidine (Pepcid) 20 mg PEG DAILY [facility] Last Admin: 10/03/16 12:00 Dose: 20 mg Finasteride (Proscar) 5 mg PO DAILY [facility] Last Admin: 10/03/16 11:18 Dose: 5 mg Levetiracetam (Keppra) 500 mg PEG BID [facility] Last Admin: 10/03/16 17:52 Dose: 500 mg Tamsulosin HCl (Flomax) 0.4 mg PO DAILY [facility] Last Admin: 10/03/16 11:13 Dose: 0.4 mg - Labs Labs: 09/29/16 09:00 09/29/16 09:00 PT 10.6 SECONDS (9.7-12.2) 11/24/15 14:10 INR 1.0 11/24/15 14:10 APTT 25 SECONDS (21-34) 11/24/15 14:10 - Constitutional Appears: Non-toxic, No Acute Distress, Chronically Ill - Head Exam Head Exam: ATRAUMATIC, NORMAL INSPECTION - Eye Exam Eye Exam: EOMI - Respiratory Exam Respiratory Exam: Clear to Ausculation Bilateral, NORMAL BREATHING PATTERN. absent: Respiratory Distress Additional comments: Trach in place - Cardiovascular Exam Cardiovascular Exam: REGULAR RHYTHM, +S1, +S2 - GI/Abdominal Exam GI & Abdominal Exam: Soft, Normal Bowel Sounds. absent: Distended, Firm, Guarding, Tenderness Additional comments: PEG in place- no erythema noted around PEG site - Exam Additional comments: Yoo in place - Neurological Exam Neurological Exam: Awake. 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 Respiratory failure * Continue Current management of trach collar and secretions- continue to suction CAD (coronary artery disease) * s/p cardiac stents on 06/13/15 * ASA 325mg via PEG daily * Carvedilol 3.125mg PO BID * Plavix 75mg via PEG daily Seizures * Keppra 500mg PEG BID for seizure prophylaxis Prophylactic measure * Pepcid 20 mg PEG daily * Lovenox 30mg SC daily * SCDs * Pressure offloading Heel Boots in place
[2016-10-04] MEDS: Enoxaparin 30 mg Syringe SC SCH (10:53)
[2016-10-04] MEDS: levETIRAcetam 100 mg/ml (5ml) Oral Syringe PEG SCH ×2 (10:55→17:59)
--- NOTE | 2016-10-05 00:43 | CP.PCM.PN ---
<Ivania Bernal - Last Filed: 10/05/16 00:41> Subjective - Date & Time of Evaluation Date of Evaluation: 10/05/16 Time of Evaluation: 00:10 - Subjective Subjective: Patient seen and examined at bedside this morning Clinically unchanged Patient afebrile overnight No acute events overnight as per nursing R hand and arm slightly swollen Continues to respond to to painful tactile stimuli Continuous PEG feeds @ 60cc/hr tolerated with free water flush 300cc Q8H Prostat 1 daily as per dietary reccs Trach collar 30% satting 95% VSS Offloading boots secure ROS unobtainable Objective - Vital Signs/Intake and Output Vital Signs (last 24 hours): Temp Pulse Resp BP Pulse Ox 98.4 F 80 20 129/82 98 10/04/16 16:00 10/04/16 19:34 10/04/16 16:00 10/04/16 16:00 10/04/16 16:00 Intake and Output: 10/04/16 10/05/16 18:59 06:59 Intake Total 1800 730 Output Total 275 400 Balance 1525 330 - Medications Medications: Current Medications Aspirin (Aspirin) 325 mg PEG DAILY [facility] Last Admin: 10/04/16 10:52 Dose: 325 mg Carvedilol (Coreg) 3.125 mg PEG BID [facility] Last Admin: 10/04/16 17:59 Dose: 3.125 mg Clopidogrel Bisulfate (Plavix) 75 mg PEG DAILY [facility] Last Admin: 10/04/16 10:52 Dose: 75 mg Enoxaparin Sodium (Lovenox) 30 mg SC DAILY [facility] Last Admin: 10/04/16 10:53 Dose: 30 mg Famotidine (Pepcid) 20 mg PEG DAILY [facility] Last Admin: 10/04/16 10:52 Dose: 20 mg Finasteride (Proscar) 5 mg PO DAILY [facility] Last Admin: 10/04/16 10:53 Dose: 5 mg Levetiracetam (Keppra) 500 mg PEG BID [facility] Last Admin: 10/04/16 17:59 Dose: 500 mg Tamsulosin HCl (Flomax) 0.4 mg PO DAILY [facility] Last Admin: 10/04/16 10:52 Dose: 0.4 mg - Labs Labs: 09/29/16 09:00 09/29/16 09:00 PT 10.6 SECONDS (9.7-12.2) 11/24/15 14:10 INR 1.0 11/24/15 14:10 APTT 25 SECONDS (21-34) 11/24/15 14:10 - Constitutional Appears: Non-toxic, No Acute Distress, Chronically Ill, Other (non responsive to verbal stimuli) - Head Exam Head Exam: ATRAUMATIC, NORMAL INSPECTION - Eye Exam Eye Exam: EOMI - ENT Exam ENT Exam: Mucous Membranes Moist - Neck Exam Additional comments: Trach in place - Respiratory Exam Respiratory Exam: Clear to Ausculation Bilateral, NORMAL BREATHING PATTERN. absent: Respiratory Distress - Cardiovascular Exam Cardiovascular Exam: REGULAR RHYTHM, +S1, +S2 - GI/Abdominal Exam GI & Abdominal Exam: Soft, Normal Bowel Sounds. absent: Distended, Firm, Guarding, Tenderness Additional comments: PEG in place - Back Exam Back Exam: NORMAL INSPECTION - Neurological Exam Neurological Exam: Awake. 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 Respiratory failure * Continue Current management of trach collar and secretions- continue to suction CAD (coronary artery disease) * s/p cardiac stents on 06/13/15 * ASA 325mg via PEG daily * Carvedilol 3.125mg PO BID * Plavix 75mg via PEG daily Seizures * Keppra 500mg PEG BID for seizure prophylaxis Prophylactic measure * Pepcid 20 mg PEG daily * Lovenox 30mg SC daily * SCDs * Pressure offloading Heel Boots in place <Donnell Ying - Last Filed: 10/05/16 14:47> Objective - Vital Signs/Intake and Output Vital Signs (last 24 hours): Temp Pulse Resp BP Pulse Ox 99.5 F 104 H 20 119/82 99 10/05/16 08:19 10/05/16 08:19 10/05/16 08:19 10/05/16 08:19 10/05/16 08:19 Intake and Output: 10/05/16 10/05/16 06:59 18:59 Intake Total 1550 Output Total 600 Balance 950 - Medications Medications: Current Medications Aspirin (Aspirin Chewable) 81 mg PEG DAILY [facility] Carvedilol (Coreg) 3.125 mg PEG BID [facility] Last Admin: 10/05/16 09:28 Dose: 3.125 mg Clopidogrel Bisulfate (Plavix) 75 mg PEG DAILY [facility] Last Admin: 10/05/16 09:28 Dose: 75 mg Enoxaparin Sodium (Lovenox) 30 mg SC DAILY [facility] Last Admin: 10/05/16 09:28 Dose: 30 mg Famotidine (Pepcid) 20 mg PEG DAILY [facility] Last Admin: 10/05/16 09:28 Dose: 20 mg Finasteride (Proscar) 5 mg PO DAILY [facility] Last Admin: 10/05/16 09:28 Dose: 5 mg Imipenem/Cilastatin Sodium 500 (mg/ Sodium Chloride) 100 mls @ 100 mls/hr IVPB Q6H [facility] Levetiracetam (Keppra) 500 mg PEG BID [facility] Last Admin: 10/05/16 09:28 Dose: 500 mg Tamsulosin HCl (Flomax) 0.4 mg PO DAILY [facility] Last Admin: 10/05/16 09:28 Dose: 0.4 mg - Labs Labs: 09/29/16 09:00 09/29/16 09:00 PT 10.6 SECONDS (9.7-12.2) 11/24/15 14:10 INR 1.0 11/24/15 14:10 APTT 25 SECONDS (21-34) 11/24/15 14:10 Attending/Attestation - Attestation I have personally seen and examined this patient.: Yes I have fully participated in the care of the patient.: Yes I have reviewed all pertinent clinical information, including history, physical exam and plan: Yes Notes (Text): 10/05/16 14:46 Patient seen and examined at bedside Not in any acute distress Urine cultures noted Positive for Pseudomonas and it is sensitive to imipenem We will start the patient on imipenem Continue to turn and position every 2 hours Continue local care of PEG and tracheostomy site
[2016-10-05] MEDS: levETIRAcetam 100 mg/ml (5ml) Oral Syringe PEG SCH ×2 (09:28→17:31)
[2016-10-05] MEDS: Enoxaparin 30 mg Syringe SC SCH (09:28)
[2016-10-06 06:03] LABS: EOS # 0.3 K/uL (0.0-0.7); EOS % 1.7 % (0.0-4.0); LYMPH # 2.2 K/uL (1.0-4.3); RBC 4.07 Mil/uL (4.40-5.90)
[2016-10-06 06:12] LABS: ALBUMIN 3.2 g/dL (3.5-5.0)
[2016-10-06 06:14] LABS: GFR NON-AFRICAN AMERICAN > 60
[2016-10-06 06:15] LABS: ALB/GLOB RATIO 0.8 (1.0-2.1); ALT/SGPT 35 U/L (21-72); AST/SGOT 20 U/L (17-59); BLOOD UREA NITROGEN 29 mg/dL (9-20); CALCIUM 8.4 mg/dl (8.6-10.4)
[2016-10-06 06:47] LABS: BASO % 0.2 % (0.0-2.0); HEMOGLOBIN 11.5 g/dL (12.0-18.0); LYMPH % 13.1 % (20.0-40.0); MEAN CELL VOLUME 87.8 fL (80.0-94.0); MEAN CORPUSCULAR HEMOGLOBIN 28.3 pg (27.0-31.0); MEAN CORPUSCULAR HGB CONC 32.2 g/dL (33.0-37.0); MEAN PLATELET VOLUME 9.5 fL (7.2-11.7); MONO # 1.3 K/uL (0.0-0.8); MONO % 7.7 % (0.0-10.0); NEUT # 13.1 K/uL (1.8-7.0); NEUT % 77.3 % (50.0-75.0); NRBC % 0.1 % (0.0-2.0); RED CELL DISTRIBUTION WIDTH 15.4 % (11.5-14.5)
--- NOTE | 2016-10-06 07:41 | CP.PCM.PN ---
Subjective - Date & Time of Evaluation Date of Evaluation: 10/06/16 Time of Evaluation: 08:00 - Subjective Subjective: PGY1 medicine note for Dr. Beth Patient seen and examined at bedside this morning Patient Tmax 100.5F last night Continues to respond to to painful tactile stimuli Continuous PEG feeds @ 65cc/hr tolerated with free water flush 300cc Q8H Prostat 1 daily as per dietary reccs Trach collar 30% satting 95% VSS UO 400cc/hr Patient on Primaxin @ 100cc/hr Q6H Offloading boots secure ROS unobtainable Objective - Vital Signs/Intake and Output Vital Signs (last 24 hours): Temp Pulse Resp BP Pulse Ox 99 F 90 20 116/68 99 10/06/16 06:00 10/06/16 06:00 10/06/16 06:00 10/06/16 06:00 10/06/16 06:00 Intake and Output: 10/06/16 10/06/16 06:59 18:59 Intake Total 1740 Output Total 1000 Balance 740 - Medications Medications: Current Medications Aspirin (Aspirin Chewable) 81 mg PEG DAILY [facility] Carvedilol (Coreg) 3.125 mg PEG BID [facility] Last Admin: 10/05/16 17:30 Dose: 3.125 mg Clopidogrel Bisulfate (Plavix) 75 mg PEG DAILY [facility] Last Admin: 10/05/16 09:28 Dose: 75 mg Enoxaparin Sodium (Lovenox) 30 mg SC DAILY [facility] Last Admin: 10/05/16 09:28 Dose: 30 mg Famotidine (Pepcid) 20 mg PEG DAILY [facility] Last Admin: 10/05/16 09:28 Dose: 20 mg Finasteride (Proscar) 5 mg PO DAILY [facility] Last Admin: 10/05/16 09:28 Dose: 5 mg Imipenem/Cilastatin Sodium 500 (mg/ Sodium Chloride) 100 mls @ 100 mls/hr IVPB Q6H [facility] Last Admin: 10/06/16 03:11 Dose: 100 mls/hr Levetiracetam (Keppra) 500 mg PEG BID [facility] Last Admin: 10/05/16 17:31 Dose: 500 mg Tamsulosin HCl (Flomax) 0.4 mg PO DAILY [facility] Last Admin: 10/05/16 09:28 Dose: 0.4 mg - Labs Labs: 10/06/16 05:44 10/06/16 05:44 PT 10.6 SECONDS (9.7-12.2) 11/24/15 14:10 INR 1.0 11/24/15 14:10 APTT 25 SECONDS (21-34) 11/24/15 14:10 - Constitutional Appears: Non-toxic, No Acute Distress - Head Exam Head Exam: ATRAUMATIC, NORMAL INSPECTION, NORMOCEPHALIC - Eye Exam Eye Exam: Normal appearance - ENT Exam ENT Exam: Mucous Membranes Moist - Neck Exam Additional comments: trach in place - Respiratory Exam Respiratory Exam: Clear to Ausculation Bilateral, NORMAL BREATHING PATTERN. absent: Rales, Rhonchi, Wheezes - Cardiovascular Exam Cardiovascular Exam: REGULAR RHYTHM, +S1, +S2 - GI/Abdominal Exam GI & Abdominal Exam: Soft, Normal Bowel Sounds Additional comments: PEG in place - Extremities Exam Extremities Exam: Normal Inspection. absent: Pedal Edema Additional comments: boots secure - Back Exam Additional comments: healing fissure- pink base noted - Neurological Exam Neurological Exam: Alert, Awake. 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 Hypoalbuminemia * Prostat 30mL 1x / day Sacral Ulcers * Healing linear 5 cm fissure with area of erythema * Nursing to use barrier to prevent further progression of abrasion * Continue to monitor with skin checks and Q2H turning Urinary Retention * Yoo in place * Flomax 0.8 mg PO daily * Proscar 5mg PO daily * monitor I's and O's UTI * UA: 3+ maty est, 55 WBC 2+ blood, 2+ protein * urine culture: Proteus Mirabilis * Patient on primaxin 100 IVPB Q6 * Dr Armstrong ID on board- help appreciated Failure to thrive * Continuous Tube feeds 65cc/hr goal with 300cc of free water flush q8H * Measure weight weekly. Respiratory failure * Continue Current management of trach collar and secretions- continue to suction CAD (coronary artery disease) * s/p cardiac stents on 06/13/15 * ASA 325mg via PEG daily * Carvedilol 3.125mg PO BID * Plavix 75mg via PEG daily Seizures * Keppra 500mg PEG BID for seizure prophylaxis Prophylactic measure * Pepcid 20 mg PEG daily * Lovenox 30mg SC daily * SCDs * Pressure offloading Heel Boots in place Case discussed with Dr. Ignacia Ramon PGY1
[2016-10-06] MEDS: levETIRAcetam 100 mg/ml (5ml) Oral Syringe PEG SCH ×2 (11:22→18:41)
[2016-10-06] MEDS: Enoxaparin 30 mg Syringe SC SCH (11:22)
[2016-10-06] MEDS: Sodium Chloride 0.9% 1,000 ML IV SCH (14:57)
[2016-10-07] MEDS: Sodium Chloride 0.9% 1,000 ML IV SCH ×2 (01:56→15:10)
[2016-10-07] MEDS: levETIRAcetam 100 mg/ml (5ml) Oral Syringe PEG SCH ×2 (10:34→17:39)
[2016-10-07] MEDS: Enoxaparin 30 mg Syringe SC SCH (10:34)
--- NOTE | 2016-10-07 10:37 | CP.PCM.PN ---
<Imani Ramon - Last Filed: 10/07/16 15:46> Subjective - Date & Time of Evaluation Date of Evaluation: 10/07/16 Time of Evaluation: 07:10 - Subjective Subjective: PGY1 medicine note for Dr. Beth Patient seen and examined at bedside this morning Patient Tmax 101.8F Continues to respond to to painful tactile stimuli Continuous PEG feeds @ 65cc/hr tolerated with free water flush 300cc Q8H Prostat 1 daily as per dietary reccs Trach collar 30% satting 99% VSS Patient on Primaxin @ 100cc/hr Q6H Offloading boots secure ROS unobtainable Objective - Vital Signs/Intake and Output Vital Signs (last 24 hours): Temp Pulse Resp BP Pulse Ox 101.8 F H 95 H 20 104/66 99 10/07/16 08:00 10/07/16 08:00 10/07/16 08:00 10/07/16 08:00 10/07/16 08:00 Intake and Output: 10/07/16 10/07/16 06:59 18:59 Intake Total 1475 1445 Output Total 350 550 Balance 1125 895 - Medications Medications: Current Medications Aspirin (Aspirin Chewable) 81 mg PEG DAILY [facility] Last Admin: 10/07/16 10:33 Dose: 81 mg Carvedilol (Coreg) 3.125 mg PEG BID [facility] Last Admin: 10/07/16 10:34 Dose: Not Given Clopidogrel Bisulfate (Plavix) 75 mg PEG DAILY [facility] Last Admin: 10/07/16 10:34 Dose: 75 mg Enoxaparin Sodium (Lovenox) 30 mg SC DAILY [facility] Last Admin: 10/07/16 10:34 Dose: 30 mg Famotidine (Pepcid) 20 mg PEG DAILY [facility] Last Admin: 10/07/16 10:33 Dose: 20 mg Finasteride (Proscar) 5 mg PO DAILY [facility] Last Admin: 10/07/16 10:33 Dose: 5 mg Imipenem/Cilastatin Sodium 500 (mg/ Sodium Chloride) 100 mls @ 100 mls/hr IVPB Q6H [facility] Last Admin: 10/07/16 10:19 Dose: 100 mls/hr Sodium Chloride (Sodium Chloride 0.9%) 1,000 mls @ 75 mls/hr IV .[id number] [facility] Last Admin: 10/07/16 01:56 Dose: Not Given Levetiracetam (Keppra) 500 mg PEG BID [facility] Last Admin: 10/07/16 10:34 Dose: 500 mg Tamsulosin HCl (Flomax) 0.8 mg PO DAILY [facility] Last Admin: 10/07/16 10:33 Dose: 0.8 mg - Labs Labs: 10/06/16 05:44 10/06/16 05:44 PT 10.6 SECONDS (9.7-12.2) 11/24/15 14:10 INR 1.0 11/24/15 14:10 APTT 25 SECONDS (21-34) 11/24/15 14:10 - Constitutional Appears: Non-toxic, No Acute Distress - Head Exam Head Exam: ATRAUMATIC, NORMAL INSPECTION, NORMOCEPHALIC - Eye Exam Eye Exam: Normal appearance. absent: Conjunctival injection, Scleral icterus - ENT Exam ENT Exam: Mucous Membranes Moist - Neck Exam Additional comments: trach in place - Respiratory Exam Respiratory Exam: Clear to Ausculation Bilateral, NORMAL BREATHING PATTERN. absent: Rales, Rhonchi, Wheezes - Cardiovascular Exam Cardiovascular Exam: REGULAR RHYTHM, +S1, +S2 - GI/Abdominal Exam GI & Abdominal Exam: Soft, Normal Bowel Sounds Additional comments: PEG in place - Extremities Exam Extremities Exam: Normal Inspection. 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 Hypoalbuminemia * Prostat 30mL 1x / day Sacral Ulcers * Healing linear 5 cm fissure with area of erythema * Nursing to use barrier to prevent further progression of abrasion * Continue to monitor with skin checks and Q2H turning Urinary Retention * Yoo in place * Flomax 0.8 mg PO daily * Proscar 5mg PO daily * monitor I's and O's UTI * f/u AM labs * f/u blood culture * UA: 3+ maty est, 55 WBC 2+ blood, 2+ protein * urine culture: Proteus Mirabilis * Patient on primaxin 100 IVPB Q6 * Dr Armstrong ID on board- help appreciated Failure to thrive * Continuous Tube feeds 65cc/hr goal with 300cc of free water flush q8H * Measure weight weekly. Respiratory failure * Continue Current management of trach collar and secretions- continue to suction CAD (coronary artery disease) * s/p cardiac stents on 06/13/15 * ASA 81mg via PEG daily * Carvedilol 3.125mg PO BID * Plavix 75mg via PEG daily Seizures * Keppra 500mg PEG BID for seizure prophylaxis Prophylactic measure * Pepcid 20 mg PEG daily * Lovenox 30mg SC daily * SCDs * Pressure offloading Heel Boots in place Case discussed with Dr. Ignacia Ramon PGY1 <Nathaniel Beth - Last Filed: 10/08/16 09:43> Objective - Vital Signs/Intake and Output Vital Signs (last 24 hours): Temp Pulse Resp BP Pulse Ox 98.4 F 84 20 109/69 100 10/08/16 08:00 10/08/16 08:00 10/08/16 08:00 10/08/16 08:00 10/08/16 08:00 Intake and Output: 10/08/16 10/08/16 06:59 18:59 Intake Total 1390 1443 Output Total 900 600 Balance 490 843 - Medications Medications: Current Medications Acetaminophen (Tylenol 325mg Tab) 650 mg PO Q6 PRN PRN Reason: Fever >100.4 F Aspirin (Aspirin Chewable) 81 mg PEG DAILY [facility] Last Admin: 10/07/16 10:33 Dose: 81 mg Carvedilol (Coreg) 3.125 mg PEG BID [facility] Last Admin: 10/07/16 17:39 Dose: 3.125 mg Clopidogrel Bisulfate (Plavix) 75 mg PEG DAILY [facility] Last Admin: 10/07/16 10:34 Dose: 75 mg Enoxaparin Sodium (Lovenox) 30 mg SC DAILY [facility] Last Admin: 10/07/16 10:34 Dose: 30 mg Famotidine (Pepcid) 20 mg PEG DAILY [facility] Last Admin: 10/07/16 10:33 Dose: 20 mg Finasteride (Proscar) 5 mg PO DAILY [facility] Last Admin: 10/07/16 10:33 Dose: 5 mg Imipenem/Cilastatin Sodium 500 (mg/ Sodium Chloride) 100 mls @ 100 mls/hr IVPB Q6H [facility] Last Admin: 10/08/16 09:19 Dose: 100 mls/hr Sodium Chloride (Sodium Chloride 0.9%) 1,000 mls @ 75 mls/hr IV .[id number] [facility] Last Admin: 10/08/16 04:00 Dose: Not Given Levetiracetam (Keppra) 500 mg PEG BID [facility] Last Admin: 10/07/16 17:39 Dose: 500 mg Tamsulosin HCl (Flomax) 0.8 mg PO DAILY [facility] Last Admin: 10/07/16 10:33 Dose: 0.8 mg - Labs Labs: 10/08/16 07:13 10/08/16 07:13 PT 10.6 SECONDS (9.7-12.2) 11/24/15 14:10 INR 1.0 11/24/15 14:10 APTT 25 SECONDS (21-34) 11/24/15 14:10 Attending/Attestation - Attestation I have personally seen and examined this patient.: Yes I have fully participated in the care of the patient.: Yes I have reviewed all pertinent clinical information, including history, physical exam and plan: Yes Notes (Text): Patient with recurrent UTI; now with Proteus and started on imipenem; should complete 7 days per ID; Spiked fever despite being on antibiotics; will get blood cultures, xray;
--- NOTE | 2016-10-07 17:54 | RAD ---
HISTORY: Spiking temp. Technique: Single view portable semi erect @ 15:45. COMPARISON: Multiple serial examinations preceding the most recent study: 07/02/2016. FINDINGS: LUNGS: No active pulmonary disease. PLEURA: No significant pleural effusion identified, no pneumothorax apparent. CARDIOVASCULAR: Cardiomegaly. No radiographic findings to suggest acute or significant cardiovascular disease. OSSEOUS STRUCTURES: No significant abnormalities. VISUALIZED UPPER ABDOMEN: Normal. OTHER FINDINGS: Stable and satisfactory position of tracheostomy device. IMPRESSION: No active disease. No significant interval change compared to the prior examination(s).
[2016-10-08] MEDS: Sodium Chloride 0.9% 1,000 ML IV SCH ×2 (04:00→22:00)
[2016-10-08 07:29] LABS: EOS # 0.1 K/uL (0.0-0.7); HEMOGLOBIN 10.6 g/dL (12.0-18.0); LYMPH # 1.5 K/uL (1.0-4.3); MEAN PLATELET VOLUME 8.9 fL (7.2-11.7)
[2016-10-08 07:46] LABS: BASO % 0.4 % (0.0-2.0); EOS % 1.6 % (0.0-4.0); LYMPH % 20.3 % (20.0-40.0); MEAN CELL VOLUME 86.9 fL (80.0-94.0); MEAN CORPUSCULAR HEMOGLOBIN 28.9 pg (27.0-31.0); MEAN CORPUSCULAR HGB CONC 33.3 g/dL (33.0-37.0); MONO # 0.9 K/uL (0.0-0.8); MONO % 11.7 % (0.0-10.0); NEUT # 4.9 K/uL (1.8-7.0); NRBC % 0.1 % (0.0-2.0); RBC 3.66 Mil/uL (4.40-5.90); RED CELL DISTRIBUTION WIDTH 14.7 % (11.5-14.5)
[2016-10-08 07:50] LABS: WHITE BLOOD COUNT 7.4 K/uL (4.8-10.8)
[2016-10-08 08:04] LABS: ALBUMIN 3.1 g/dL (3.5-5.0)
[2016-10-08 08:07] LABS: ALB/GLOB RATIO 0.7 (1.0-2.1); ALT/SGPT 33 U/L (21-72); AST/SGOT 20 U/L (17-59); BLOOD UREA NITROGEN 15 mg/dL (9-20); GFR NON-AFRICAN AMERICAN > 60
[2016-10-08 08:08] LABS: CALCIUM 8.1 mg/dl (8.6-10.4)
[2016-10-08] MEDS: Enoxaparin 30 mg Syringe SC SCH (10:13)
[2016-10-08] MEDS: levETIRAcetam 100 mg/ml (5ml) Oral Syringe PEG SCH ×2 (10:15→18:00)
--- NOTE | 2016-10-08 18:44 | CP.PCM.PN ---
<Imani Ramon - Last Filed: 10/08/16 18:42> Subjective - Date & Time of Evaluation Date of Evaluation: 10/08/16 Time of Evaluation: 08:00 - Subjective Subjective: PGY1 Medicine note for Dr. Beth Patient seen and examined at bedside this morning Continues to respond to to painful tactile stimuli Continuous PEG feeds @ 50cc/hr tolerated with free water flush 300cc Q8H Patient on NS @ 60cc/hr Prostat 1 daily as per dietary reccs VSS Patient on Primaxin @ 100cc/hr Q6H Offloading boots secure ROS unobtainable Objective - Vital Signs/Intake and Output Vital Signs (last 24 hours): Temp Pulse Resp BP Pulse Ox 97.4 F L 74 20 122/78 98 10/08/16 15:10 10/08/16 15:10 10/08/16 15:10 10/08/16 15:10 10/08/16 15:10 Intake and Output: 10/08/16 10/08/16 06:59 18:59 Intake Total 1390 2918 Output Total 900 1200 Balance 490 1718 - Medications Medications: Current Medications Acetaminophen (Tylenol 325mg Tab) 650 mg PO Q6 PRN PRN Reason: Fever >100.4 F Last Admin: 10/08/16 10:12 Dose: 650 mg Aspirin (Aspirin Chewable) 81 mg PEG DAILY [facility] Last Admin: 10/08/16 10:12 Dose: 81 mg Carvedilol (Coreg) 3.125 mg PEG BID [facility] Last Admin: 10/08/16 10:13 Dose: 3.125 mg Clopidogrel Bisulfate (Plavix) 75 mg PEG DAILY [facility] Last Admin: 10/08/16 10:12 Dose: 75 mg Enoxaparin Sodium (Lovenox) 30 mg SC DAILY [facility] Last Admin: 10/08/16 10:13 Dose: 30 mg Famotidine (Pepcid) 20 mg PEG DAILY [facility] Last Admin: 10/08/16 10:12 Dose: 20 mg Finasteride (Proscar) 5 mg PO DAILY [facility] Last Admin: 10/08/16 10:12 Dose: 5 mg Imipenem/Cilastatin Sodium 500 (mg/ Sodium Chloride) 100 mls @ 100 mls/hr IVPB Q6H [facility] Last Admin: 10/08/16 09:19 Dose: 100 mls/hr Sodium Chloride (Sodium Chloride 0.9%) 1,000 mls @ 60 mls/hr IV .[id number] [facility] Levetiracetam (Keppra) 500 mg PEG BID [facility] Last Admin: 10/08/16 10:15 Dose: 500 mg Tamsulosin HCl (Flomax) 0.8 mg PO DAILY [facility] Last Admin: 10/08/16 10:13 Dose: 0.8 mg - Labs Labs: 10/08/16 07:13 10/08/16 07:13 PT 10.6 SECONDS (9.7-12.2) 11/24/15 14:10 INR 1.0 11/24/15 14:10 APTT 25 SECONDS (21-34) 11/24/15 14:10 - Constitutional Appears: Non-toxic, No Acute Distress, Chronically Ill - Head Exam Head Exam: ATRAUMATIC, NORMAL INSPECTION, NORMOCEPHALIC - Eye Exam Eye Exam: Normal appearance. absent: Conjunctival injection, Scleral icterus - ENT Exam ENT Exam: Mucous Membranes Moist - Neck Exam Neck Exam: Normal Inspection. absent: Tenderness Additional comments: trach collar in place - Respiratory Exam Respiratory Exam: NORMAL BREATHING PATTERN. absent: Rales, Rhonchi, Wheezes - Cardiovascular Exam Cardiovascular Exam: REGULAR RHYTHM, +S1, +S2 - GI/Abdominal Exam GI & Abdominal Exam: Soft, Normal Bowel Sounds. absent: Tenderness Additional comments: PEG site in place - Extremities Exam Extremities Exam: absent: Pedal Edema Additional comments: offloading boots secure - Back Exam Back Exam: NORMAL INSPECTION. absent: rash noted - Neurological Exam Neurological Exam: Awake. absent: Alert, Oriented x3 - Skin Skin Exam: Dry, Intact, Normal Color, Warm Assessment and Plan - Assessment and Plan (Free Text) Assessment: 64 yo M with unknown pmhx who was found unresponsive in driveway s/p cardiac arrest and anoxic encephalopathy Anoxic encephalopathy * Monitor weekly labs on Mondays * Q2h turns * feeds through PEG @ 50cc/hr * suctioning trach routinely * Pending [facility] facility placement Hypoalbuminemia * Prostat 30mL 1x / day Sacral Ulcers * Healing linear 5 cm fissure with area of erythema * Nursing to use barrier to prevent further progression of abrasion * Continue to monitor with skin checks and Q2H turning Urinary Retention * Yoo in place * Flomax 0.8 mg PO daily * Proscar 5mg PO daily * monitor I's and O's UTI * f/u AM labs * f/u blood culture * UA: 3+ maty est, 55 WBC 2+ blood, 2+ protein * urine culture: Proteus Mirabilis * Patient on primaxin 100 IVPB Q6 * Dr Armstrong ID on board- help appreciated Failure to thrive * Continuous Tube feeds 50cc/hr goal with 300cc of free water flush q8H * Measure weight weekly. Respiratory failure * Continue Current management of trach collar and secretions- continue to suction CAD (coronary artery disease) * s/p cardiac stents on 06/13/15 * ASA 81mg via PEG daily * Carvedilol 3.125mg PO BID * Plavix 75mg via PEG daily Seizures * Keppra 500mg PEG BID for seizure prophylaxis Prophylactic measure * Pepcid 20 mg PEG daily * Lovenox 30mg SC daily * SCDs * Pressure offloading Heel Boots in place Case discussed with Dr. Ignacia Ramon PGY1 <Nathaniel Beth - Last Filed: 10/09/16 09:01> Objective - Vital Signs/Intake and Output Vital Signs (last 24 hours): Temp Pulse Resp BP Pulse Ox 99.1 F 84 20 110/72 100 10/09/16 08:00 10/09/16 08:00 10/09/16 08:00 10/09/16 08:00 10/09/16 08:00 Intake and Output: 10/09/16 10/09/16 06:59 18:59 Intake Total 2595 Output Total 650 Balance 1945 - Medications Medications: Current Medications Acetaminophen (Tylenol 325mg Tab) 650 mg PO Q6 PRN PRN Reason: Fever >100.4 F Last Admin: 10/08/16 10:12 Dose: 650 mg Aspirin (Aspirin Chewable) 81 mg PEG DAILY [facility] Last Admin: 10/08/16 10:12 Dose: 81 mg Carvedilol (Coreg) 3.125 mg PEG BID [facility] Last Admin: 10/08/16 18:00 Dose: 3.125 mg Clopidogrel Bisulfate (Plavix) 75 mg PEG DAILY [facility] Last Admin: 10/08/16 10:12 Dose: 75 mg Enoxaparin Sodium (Lovenox) 30 mg SC DAILY [facility] Last Admin: 10/08/16 10:13 Dose: 30 mg Famotidine (Pepcid) 20 mg PEG DAILY [facility] Last Admin: 10/08/16 10:12 Dose: 20 mg Finasteride (Proscar) 5 mg PO DAILY [facility] Last Admin: 10/08/16 10:12 Dose: 5 mg Imipenem/Cilastatin Sodium 500 (mg/ Sodium Chloride) 100 mls @ 100 mls/hr IVPB Q6H [facility] Last Admin: 10/09/16 02:23 Dose: 100 mls/hr Sodium Chloride (Sodium Chloride 0.9%) 1,000 mls @ 60 mls/hr IV .[id number] [facility] Last Admin: 10/08/16 22:00 Dose: 60 mls/hr Levetiracetam (Keppra) 500 mg PEG BID [facility] Last Admin: 10/08/16 18:00 Dose: 500 mg Tamsulosin HCl (Flomax) 0.8 mg PO DAILY [facility] Last Admin: 10/08/16 10:13 Dose: 0.8 mg - Labs Labs: 10/09/16 07:32 10/09/16 07:32 PT 10.6 SECONDS (9.7-12.2) 11/24/15 14:10 INR 1.0 11/24/15 14:10 APTT 25 SECONDS (21-34) 11/24/15 14:10 Attending/Attestation - Attestation I have personally seen and examined this patient.: Yes I have fully participated in the care of the patient.: Yes I have reviewed all pertinent clinical information, including history, physical exam and plan: Yes Notes (Text): Patient admitted s/p cardiac arrest, subsequent anoxic encephalopathy, prolonged hospital course due to inability to find placement; Again with recurrent UTI; urine culture growing Proteus; on imipenem day #4 of 7 ; spiked fever yesterday; blood cultures sent; chest xray unremarkable; no other source of infection identified; Hypernatremia resolved on current tube feed and PO flush regimen; Sacral ulcer just a 3 cm fissure, appears healed; -continue imipenem -NS at 60 cc/hr -continue ASA/plavix (CAD s/p WILLIE) -continue coreg (CHF w/ systolic dysfunction, stable)
[2016-10-09] MEDS: Sodium Chloride 0.9% 1,000 ML IV SCH ×3 (03:45→22:24)
[2016-10-09 07:46] LABS: BASO % 0.5 % (0.0-2.0); EOS # 0.3 K/uL (0.0-0.7); EOS % 4.5 % (0.0-4.0); HEMOGLOBIN 10.9 g/dL (12.0-18.0); LYMPH # 1.6 K/uL (1.0-4.3); LYMPH % 22.6 % (20.0-40.0); MEAN CELL VOLUME 87.9 fL (80.0-94.0); MEAN CORPUSCULAR HEMOGLOBIN 28.9 pg (27.0-31.0); MEAN CORPUSCULAR HGB CONC 32.9 g/dL (33.0-37.0); MEAN PLATELET VOLUME 8.8 fL (7.2-11.7); NEUT # 4.2 K/uL (1.8-7.0); NEUT % 58.4 % (50.0-75.0); RBC 3.77 Mil/uL (4.40-5.90); RED CELL DISTRIBUTION WIDTH 14.7 % (11.5-14.5); WHITE BLOOD COUNT 7.2 K/uL (4.8-10.8)
[2016-10-09 08:04] LABS: ALBUMIN 3.1 g/dL (3.5-5.0)
[2016-10-09 08:07] LABS: ALB/GLOB RATIO 0.7 (1.0-2.1); ALT/SGPT 37 U/L (21-72); AST/SGOT 24 U/L (17-59); BLOOD UREA NITROGEN 14 mg/dL (9-20); GFR NON-AFRICAN AMERICAN > 60
[2016-10-09 08:08] LABS: CALCIUM 8.4 mg/dl (8.6-10.4)
--- NOTE | 2016-10-09 09:14 | CP.PCM.PN ---
Subjective - Date & Time of Evaluation Date of Evaluation: 10/09/16 Time of Evaluation: 07:15 - Subjective Subjective: PGY1 Medicine note for Dr. Beth Patient seen and examined at bedside this morning Patient afebrile overnight Continues to respond to to painful stimuli PEG feeds @ 50cc/hr tolerated with free water flush 300cc Q8H NS @ 60cc/hr Prostat 1 daily as per dietary reccs VSS Patient on Primaxin @ 100cc/hr Q6H - last day 10/11 Offloading boots secure ROS unobtainable Objective - Vital Signs/Intake and Output Vital Signs (last 24 hours): Temp Pulse Resp BP Pulse Ox 99.1 F 84 20 110/72 100 10/09/16 08:00 10/09/16 08:00 10/09/16 08:00 10/09/16 08:00 10/09/16 08:00 Intake and Output: 10/09/16 10/09/16 06:59 18:59 Intake Total 2595 Output Total 650 Balance 1945 - Medications Medications: Current Medications Acetaminophen (Tylenol 325mg Tab) 650 mg PO Q6 PRN PRN Reason: Fever >100.4 F Last Admin: 10/08/16 10:12 Dose: 650 mg Aspirin (Aspirin Chewable) 81 mg PEG DAILY [facility] Last Admin: 10/08/16 10:12 Dose: 81 mg Carvedilol (Coreg) 3.125 mg PEG BID [facility] Last Admin: 10/08/16 18:00 Dose: 3.125 mg Clopidogrel Bisulfate (Plavix) 75 mg PEG DAILY [facility] Last Admin: 10/08/16 10:12 Dose: 75 mg Enoxaparin Sodium (Lovenox) 30 mg SC DAILY [facility] Last Admin: 10/08/16 10:13 Dose: 30 mg Famotidine (Pepcid) 20 mg PEG DAILY [facility] Last Admin: 10/08/16 10:12 Dose: 20 mg Finasteride (Proscar) 5 mg PO DAILY [facility] Last Admin: 10/08/16 10:12 Dose: 5 mg Imipenem/Cilastatin Sodium 500 (mg/ Sodium Chloride) 100 mls @ 100 mls/hr IVPB Q6H [facility] Last Admin: 10/09/16 02:23 Dose: 100 mls/hr Sodium Chloride (Sodium Chloride 0.9%) 1,000 mls @ 60 mls/hr IV .[id number] [facility] Last Admin: 10/08/16 22:00 Dose: 60 mls/hr Levetiracetam (Keppra) 500 mg PEG BID [facility] Last Admin: 10/08/16 18:00 Dose: 500 mg Tamsulosin HCl (Flomax) 0.8 mg PO DAILY [facility] Last Admin: 10/08/16 10:13 Dose: 0.8 mg - Labs Labs: 10/09/16 07:32 10/09/16 07:32 PT 10.6 SECONDS (9.7-12.2) 11/24/15 14:10 INR 1.0 11/24/15 14:10 APTT 25 SECONDS (21-34) 11/24/15 14:10 - Constitutional Appears: Non-toxic, No Acute Distress - Head Exam Head Exam: ATRAUMATIC, NORMAL INSPECTION, NORMOCEPHALIC - Eye Exam Eye Exam: Normal appearance. absent: Conjunctival injection, Scleral icterus Pupil Exam: NORMAL ACCOMODATION - ENT Exam ENT Exam: Mucous Membranes Moist - Neck Exam Neck Exam: Normal Inspection Additional comments: trach collar in place - Respiratory Exam Respiratory Exam: Clear to Ausculation Bilateral, NORMAL BREATHING PATTERN. absent: Rales, Rhonchi, Wheezes, Respiratory Distress - Cardiovascular Exam Cardiovascular Exam: REGULAR RHYTHM, RRR, +S1, +S2 - GI/Abdominal Exam GI & Abdominal Exam: Soft, Normal Bowel Sounds. absent: Tenderness Additional comments: PEG in place - Extremities Exam Extremities Exam: Normal Inspection. absent: Pedal Edema Additional comments: boots in place - Neurological Exam Neurological Exam: Awake. absent: Alert, Oriented x3 - Skin Skin Exam: Dry, Intact, Normal Color, Warm Assessment and Plan - Assessment and Plan (Free Text) Assessment: 64 yo M with unknown pmhx who was found unresponsive in driveway s/p cardiac arrest and anoxic encephalopathy Anoxic encephalopathy * Monitor weekly labs on Mondays * Q2h turns * feeds through PEG @ 50cc/hr * suctioning trach routinely * Pending senior care facility placement Hypoalbuminemia * Prostat 30mL 1x / day Sacral Ulcers * Healing linear 5 cm fissure with area of erythema * Nursing to use barrier to prevent further progression of abrasion * Continue to monitor with skin checks and Q2H turning Urinary Retention * Yoo in place- to be d/c 10/12 * Flomax 0.8 mg PO daily * Proscar 5mg PO daily * monitor I's and O's UTI * blood culture: gram+ cocci prelim; S. aureus and coat neg Staph PNA FISH * UA: 3+ leuk est, 55 WBC 2+ blood, 2+ protein * urine culture: Proteus Mirabilis * Patient on primaxin 100 IVPB Q6 last day 10/11 * Dr Armstrong ID on board- help appreciated Failure to thrive * Continuous Tube feeds 50cc/hr goal with 300cc of free water flush q8H * Measure weight weekly. Respiratory failure * Continue Current management of trach collar and secretions- continue to suction CAD (coronary artery disease) * s/p cardiac stents on 06/13/15 * ASA 81mg via PEG daily * Carvedilol 3.125mg PO BID * Plavix 75mg via PEG daily Seizures * Keppra 500mg PEG BID for seizure prophylaxis Prophylactic measure * Pepcid 20 mg PEG daily * Lovenox 30mg SC daily * SCDs * Pressure offloading Heel Boots in place Case discussed with Dr. Ignacia Ramon PGY1
[2016-10-09] MEDS: levETIRAcetam 100 mg/ml (5ml) Oral Syringe PEG SCH ×2 (10:56→18:00)
[2016-10-09] MEDS: Enoxaparin 30 mg Syringe SC SCH (10:56)
[2016-10-10 07:28] LABS: ALBUMIN 3.3 g/dL (3.5-5.0)
[2016-10-10 07:31] LABS: ALB/GLOB RATIO 0.7 (1.0-2.1); ALT/SGPT 40 U/L (21-72); AST/SGOT 34 U/L (17-59); BLOOD UREA NITROGEN 12 mg/dL (9-20); GFR NON-AFRICAN AMERICAN > 60
[2016-10-10 07:32] LABS: CALCIUM 8.7 mg/dl (8.6-10.4)
[2016-10-10 07:34] LABS: BASO # 0.1 K/uL (0.0-0.2); BASO % 1.3 % (0.0-2.0); EOS # 0.4 K/uL (0.0-0.7); EOS % 5.7 % (0.0-4.0); HEMOGLOBIN 10.9 g/dL (12.0-18.0); LYMPH # 1.6 K/uL (1.0-4.3); LYMPH % 24.8 % (20.0-40.0); MEAN CELL VOLUME 87.1 fL (80.0-94.0); MEAN CORPUSCULAR HEMOGLOBIN 29.1 pg (27.0-31.0); MEAN CORPUSCULAR HGB CONC 33.4 g/dL (33.0-37.0); MEAN PLATELET VOLUME 8.7 fL (7.2-11.7); MONO # 0.7 K/uL (0.0-0.8); MONO % 10.1 % (0.0-10.0); NEUT # 3.8 K/uL (1.8-7.0); NEUT % 58.1 % (50.0-75.0); NRBC % 0.1 % (0.0-2.0); RBC 3.75 Mil/uL (4.40-5.90); RED CELL DISTRIBUTION WIDTH 14.7 % (11.5-14.5); WHITE BLOOD COUNT 6.5 K/uL (4.8-10.8)
--- NOTE | 2016-10-10 09:46 | CP.PCM.PN ---
Subjective - Date & Time of Evaluation Date of Evaluation: 10/10/16 Time of Evaluation: 07:30 - Subjective Subjective: PGY1 Medicine note for Dr. Beth Patient seen and examined at bedside this morning Patient afebrile overnight Continues to respond to to painful stimuli PEG feeds @ 50cc/hr tolerated with free water flush 300cc Q8H will increase to 65cc/hr NS @ 60cc/hr- will d/c today Prostat 1 daily as per dietary reccs VSS Patient on Primaxin @ 100cc/hr Q6H - last day 10/[address]- will d/c 10/12 Offloading boots secure ROS unobtainable Objective - Vital Signs/Intake and Output Vital Signs (last 24 hours): Temp Pulse Resp BP Pulse Ox 98.5 F 85 20 130/85 96 10/10/16 08:18 10/10/16 08:18 10/10/16 08:18 10/10/16 08:18 10/10/16 08:18 Intake and Output: 10/10/16 10/10/16 06:59 18:59 Intake Total 1180 Output Total 1900 Balance -720 - Medications Medications: Current Medications Acetaminophen (Tylenol 325mg Tab) 650 mg PO Q6 PRN PRN Reason: Fever >100.4 F Last Admin: 10/08/16 10:12 Dose: 650 mg Aspirin (Aspirin Chewable) 81 mg PEG DAILY [facility] Last Admin: 10/09/16 10:55 Dose: 81 mg Carvedilol (Coreg) 3.125 mg PEG BID [facility] Last Admin: 10/09/16 18:00 Dose: 3.125 mg Clopidogrel Bisulfate (Plavix) 75 mg PEG DAILY [facility] Last Admin: 10/09/16 10:55 Dose: 75 mg Enoxaparin Sodium (Lovenox) 30 mg SC DAILY [facility] Last Admin: 10/09/16 10:56 Dose: 30 mg Famotidine (Pepcid) 20 mg PEG DAILY [facility] Last Admin: 10/09/16 10:55 Dose: 20 mg Finasteride (Proscar) 5 mg PO DAILY [facility] Last Admin: 10/09/16 10:55 Dose: 5 mg Imipenem/Cilastatin Sodium 500 (mg/ Sodium Chloride) 100 mls @ 100 mls/hr IVPB Q6H [facility] Last Admin: 10/10/16 08:48 Dose: 100 mls/hr Sodium Chloride (Sodium Chloride 0.9%) 1,000 mls @ 60 mls/hr IV .[id number] [facility] Last Admin: 10/09/16 20:20 Dose: 60 mls/hr Levetiracetam (Keppra) 500 mg PEG BID [facility] Last Admin: 10/09/16 18:00 Dose: 500 mg Tamsulosin HCl (Flomax) 0.8 mg PO DAILY [facility] Last Admin: 10/09/16 10:55 Dose: 0.8 mg - Labs Labs: 10/10/16 06:54 10/10/16 06:54 PT 10.6 SECONDS (9.7-12.2) 11/24/15 14:10 INR 1.0 11/24/15 14:10 APTT 25 SECONDS (21-34) 11/24/15 14:10 - Constitutional Appears: Well, Non-toxic, No Acute Distress - Head Exam Head Exam: ATRAUMATIC, NORMAL INSPECTION, NORMOCEPHALIC - Eye Exam Eye Exam: Normal appearance. absent: Conjunctival injection, Scleral icterus - ENT Exam ENT Exam: Mucous Membranes Moist - Neck Exam Neck Exam: Normal Inspection. absent: Tenderness Additional comments: trach collar in place - Respiratory Exam Respiratory Exam: Clear to Ausculation Bilateral, NORMAL BREATHING PATTERN. absent: Rales, Rhonchi, Wheezes - Cardiovascular Exam Cardiovascular Exam: REGULAR RHYTHM, RRR, +S1, +S2 - GI/Abdominal Exam GI & Abdominal Exam: Soft, Normal Bowel Sounds. absent: Tenderness Additional comments: PEG in place - Exam Additional comments: baker cath in place - Extremities Exam Extremities Exam: Normal Capillary Refill, Normal Inspection. absent: Pedal Edema, Tenderness Additional comments: offloading boots secure - Back Exam Additional comments: Stage I decubitus ulcer - Neurological Exam Neurological Exam: Awake. absent: Alert, Oriented x3 - Skin Skin Exam: Dry, Intact, Normal Color, Warm Assessment and Plan - Assessment and Plan (Free Text) Assessment: 64 yo M with unknown pmhx who was found unresponsive in driveway s/p cardiac arrest and anoxic encephalopathy Anoxic encephalopathy * Monitor weekly labs on Mondays * Q2h turns * feeds through PEG @ 65cc/hr * suctioning trach routinely * Pending nursing home facility placement Hypoalbuminemia * Prostat 30mL 1x / day Sacral Ulcers * Healing linear 5 cm fissure with area of erythema * Nursing to use barrier to prevent further progression of abrasion * Continue to monitor with skin checks and Q2H turning Urinary Retention * Baker in place- to be d/c 10/12 * Flomax 0.8 mg PO daily * Proscar 5mg PO daily * monitor I's and O's UTI * patient afebrile overnight- Tylenol PRN for temp > 100.4F * blood culture: gram+ cocci prelim; S. aureus and coat neg Staph PNA FISH * f/u repeat blood culture * UA: 3+ leuk est, 55 WBC, 2+ blood, 2+ protein * urine culture: Proteus Mirabilis * Patient on Primaxin 100 IVPB Q6 last day 10/11 * baker to be d/c 10/12 * Dr Armstrong ID on board- help appreciated Failure to thrive * Continuous Tube feeds 65cc/hr goal with 300cc of free water flush q8H * Measure weight weekly. Respiratory failure * Continue Current management of trach collar and secretions- continue to suction CAD (coronary artery disease) * s/p cardiac stents on 06/13/15 * ASA 81mg via PEG daily * Coreg 3.125mg PEG BID * Plavix 75mg via PEG daily Seizures * Keppra 500mg PEG BID for seizure prophylaxis Prophylactic measure * Pepcid 20 mg PEG daily * Lovenox 30mg SC daily * SCDs * Pressure offloading Heel Boots in place Case discussed with Dr. Ignacia Ramon PGY1
[2016-10-10] MEDS: Enoxaparin 30 mg Syringe SC SCH (11:22)
[2016-10-10] MEDS: levETIRAcetam 100 mg/ml (5ml) Oral Syringe PEG SCH ×2 (11:24→18:26)
--- NOTE | 2016-10-11 03:04 | CP.PCM.PN ---
<Leslie Coylemeerakevin - Last Filed: 10/11/16 03:01> Subjective - Date & Time of Evaluation Date of Evaluation: 10/11/16 Time of Evaluation: 00:20 - Subjective Subjective: PGY 1 medicine note- Dr. Beth's service Pt seen and examined in no acute distress. Patient remains the same. No fever or chills noted. Patient is minimally responsive to tactile stimuli and nonresponsive to verbal stimuli secondary to anoxic brain injury. Patient's eyes were open but he could follow commands. Patient turned Q2H per nursing team to prevent bed sores. Patient is currently supine. A ROS could not be obtained at this time. Objective - Vital Signs/Intake and Output Vital Signs (last 24 hours): Temp Pulse Resp BP Pulse Ox 98.1 F 71 20 118/75 100 10/11/16 00:00 10/11/16 00:00 10/11/16 00:00 10/11/16 00:00 10/11/16 00:00 Intake and Output: 10/10/16 10/11/16 18:59 06:59 Intake Total 890 Output Total 600 1000 Balance 290 -1000 - Medications Medications: Current Medications Acetaminophen (Tylenol 325mg Tab) 650 mg PO Q6 PRN PRN Reason: Fever >100.4 F Last Admin: 10/08/16 10:12 Dose: 650 mg Aspirin (Aspirin Chewable) 81 mg PEG DAILY [facility] Last Admin: 10/10/16 11:25 Dose: 81 mg Carvedilol (Coreg) 3.125 mg PEG BID [facility] Last Admin: 10/10/16 18:26 Dose: 3.125 mg Clopidogrel Bisulfate (Plavix) 75 mg PEG DAILY [facility] Last Admin: 10/10/16 11:25 Dose: 75 mg Enoxaparin Sodium (Lovenox) 30 mg SC DAILY [facility] Last Admin: 10/10/16 11:22 Dose: 30 mg Famotidine (Pepcid) 20 mg PEG DAILY [facility] Last Admin: 10/10/16 11:25 Dose: 20 mg Finasteride (Proscar) 5 mg PO DAILY [facility] Last Admin: 10/10/16 11:25 Dose: 5 mg Imipenem/Cilastatin Sodium 500 (mg/ Sodium Chloride) 100 mls @ 100 mls/hr IVPB Q6H [facility] Last Admin: 11/19/16 02:19 Dose: 100 mls/hr Levetiracetam (Keppra) 500 mg PEG BID [facility] Last Admin: 10/10/16 18:26 Dose: 500 mg Tamsulosin HCl (Flomax) 0.8 mg PO DAILY [facility] Last Admin: 10/10/16 11:24 Dose: 0.8 mg - Labs Labs: 10/10/16 06:54 10/10/16 06:54 PT 10.6 SECONDS (9.7-12.2) 11/24/15 14:10 INR 1.0 11/24/15 14:10 APTT 25 SECONDS (21-34) 11/24/15 14:10 - Constitutional Appears: No Acute Distress, Chronically Ill - Head Exam Head Exam: NORMAL INSPECTION, NORMOCEPHALIC - Eye Exam Eye Exam: PERRL Pupil Exam: PERRL - ENT Exam ENT Exam: Mucous Membranes Moist - Neck Exam Neck Exam: absent: Lymphadenopathy Additional comments: trach collar in place with minimal secretions - Respiratory Exam Respiratory Exam: absent: Wheezes, Respiratory Distress - Cardiovascular Exam Cardiovascular Exam: REGULAR RHYTHM, +S1, +S2 - GI/Abdominal Exam GI & Abdominal Exam: Soft. absent: Firm, Rigid - Exam Additional comments: baker catheter in place - Extremities Exam Extremities Exam: absent: Full ROM - Back Exam Back Exam: absent: Full ROM - Neurological Exam Neurological Exam: Altered, Awake. absent: Oriented x3 - Psychiatric Exam Psychiatric exam: Flat Affect - Skin Skin Exam: Normal Color, Warm Assessment and Plan - Assessment and Plan (Free Text) Assessment: Anoxic encephalopathy * Monitor weekly labs on Mondays * Turn Q2 hours- Continue to monitor * feeds through PEG @ 65cc/hr * suctioning trach routinely * Pending [facility] facility placement Hypoalbuminemia * Prostat 30mL 1x / day Sacral Ulcers * Healing linear 5 cm fissure with area of erythema * Nursing to use barrier to prevent further progression of abrasion * Continue to monitor with skin checks and Q2H turning Urinary Retention * Baker in place- to be d/c 10/12 * Flomax 0.8 mg PO daily * Proscar 5mg PO daily * monitor I's and O's UTI * Patient afebrile overnight- Tylenol PRN for fevers * Blood culture: 10/07 Coagulase negative staph; S. aureus and coat neg Staph PNA FISH * f/u repeat blood culture * UA: 3+ leuk est, 55 WBC, 2+ blood, 2+ protein * Urine culture: Proteus Mirabilis * Patient on Primaxin 500 mg in ns IVPB Q6 last day today 10/11 * baker to be d/c 10/12 * Dr Armstrong ID on board- help appreciated * Acetaminophen PRN Failure to thrive * Continuous Tube feeds increased to 65cc/hr goal with 300cc of free water flush q8H * Measure weight weekly. * Continue to monitor Respiratory failure * Continue Current management of trach collar and secretions- continue to suction as needed CAD (coronary artery disease) * s/p cardiac stents on 06/13/15 * ASA 81mg via PEG daily * Coreg 3.125mg PEG BID * Plavix 75mg via PEG daily Seizures * Keppra 500mg PEG BID for seizure prophylaxis Prophylactic measure * Pepcid 20 mg PEG daily * Lovenox 30mg SC daily * SCDs * Pressure offloading Heel Boots in place <Nathaniel Beth - Last Filed: 10/12/16 09:17> Objective - Vital Signs/Intake and Output Vital Signs (last 24 hours): Temp Pulse Resp BP Pulse Ox 97.7 F 81 20 102/63 99 10/12/16 00:01 10/12/16 00:01 10/12/16 00:01 10/12/16 00:01 10/12/16 00:01 Intake and Output: 10/12/16 10/12/16 06:59 18:59 Intake Total 920 Output Total 450 Balance 470 - Medications Medications: Current Medications Acetaminophen (Tylenol 325mg Tab) 650 mg PO Q6 PRN PRN Reason: Fever >100.4 F Last Admin: 10/08/16 10:12 Dose: 650 mg Aspirin (Aspirin Chewable) 81 mg PEG DAILY [facility] Last Admin: 10/11/16 11:13 Dose: 81 mg Carvedilol (Coreg) 3.125 mg PEG BID [facility] Last Admin: 10/11/16 17:38 Dose: 3.125 mg Clopidogrel Bisulfate (Plavix) 75 mg PEG DAILY [facility] Last Admin: 10/11/16 11:12 Dose: 75 mg Enoxaparin Sodium (Lovenox) 30 mg SC DAILY [facility] Last Admin: 10/11/16 11:19 Dose: 30 mg Famotidine (Pepcid) 20 mg PEG DAILY [facility] Last Admin: 10/11/16 11:14 Dose: 20 mg Finasteride (Proscar) 5 mg PO DAILY [facility] Last Admin: 10/11/16 11:13 Dose: 5 mg Imipenem/Cilastatin Sodium 500 (mg/ Sodium Chloride) 100 mls @ 100 mls/hr IVPB Q6H [facility] Last Admin: 10/12/16 02:47 Dose: 100 mls/hr Levetiracetam (Keppra) 500 mg PEG BID [facility] Last Admin: 10/11/16 17:38 Dose: 500 mg Tamsulosin HCl (Flomax) 0.8 mg PO DAILY [facility] Last Admin: 10/11/16 11:13 Dose: 0.8 mg - Labs Labs: 10/12/16 07:37 10/12/16 07:37 PT 10.6 SECONDS (9.7-12.2) 11/24/15 14:10 INR 1.0 11/24/15 14:10 APTT 25 SECONDS (21-34) 11/24/15 14:10 Attending/Attestation - Attestation I have personally seen and examined this patient.: Yes I have fully participated in the care of the patient.: Yes I have reviewed all pertinent clinical information, including history, physical exam and plan: Yes Notes (Text): Patient admitted s/p cardiac arrest, subsequent anoxic encephalopathy; prolonged hospital course due to inability to find placement; Patient being treated for Proteus UTI, on imipenem; 7 day course to be completed tomorrow morning; will d/c baker subsequently (placed due to urinary retention); Still with hypoalbuminemia (3.5); on prostat once daily; will increase to twice daily; Sacral decubitus ulcer stage I, ~1 cm, just above area of previous fissure ( healed); continue protective ointment, frequent turning; Hyponatremia resolved but need to monitor; on free H20 flushes 300 cc q8h; tube feeds at 65 cc/hr; CAD s/p WILLIE; continue ASA/plavix; coreg 3.125 mg bid for systolic failure (no current signs of CHF);
[2016-10-11 08:37] LABS: BASO # 0.1 K/uL (0.0-0.2); EOS # 0.4 K/uL (0.0-0.7); EOS % 6.3 % (0.0-4.0); HEMOGLOBIN 11.7 g/dL (12.0-18.0); LYMPH # 1.5 K/uL (1.0-4.3); LYMPH % 25.1 % (20.0-40.0); MEAN CELL VOLUME 87.1 fL (80.0-94.0); MEAN CORPUSCULAR HEMOGLOBIN 28.7 pg (27.0-31.0); MEAN CORPUSCULAR HGB CONC 32.9 g/dL (33.0-37.0); MEAN PLATELET VOLUME 8.7 fL (7.2-11.7); MONO # 0.8 K/uL (0.0-0.8); MONO % 12.5 % (0.0-10.0); NEUT # 3.3 K/uL (1.8-7.0); NEUT % 55.1 % (50.0-75.0); NRBC % 0.1 % (0.0-2.0); RBC 4.07 Mil/uL (4.40-5.90); RED CELL DISTRIBUTION WIDTH 14.7 % (11.5-14.5)
[2016-10-11 08:49] LABS: ALBUMIN 3.5 g/dL (3.5-5.0)
[2016-10-11 08:52] LABS: ALB/GLOB RATIO 0.7 (1.0-2.1); AST/SGOT 24 U/L (17-59); BLOOD UREA NITROGEN 15 mg/dL (9-20); GFR NON-AFRICAN AMERICAN > 60
[2016-10-11 08:53] LABS: ALT/SGPT 44 U/L (21-72); CALCIUM 8.8 mg/dl (8.6-10.4)
[2016-10-11] MEDS: levETIRAcetam 100 mg/ml (5ml) Oral Syringe PEG SCH ×2 (11:13→17:38)
[2016-10-11] MEDS: Enoxaparin 30 mg Syringe SC SCH (11:19)
--- NOTE | 2016-10-12 00:37 | CP.PCM.PN ---
<Pedro Luis Coylecristelakevin - Last Filed: 10/12/16 00:34> Subjective - Date & Time of Evaluation Date of Evaluation: 10/12/16 Time of Evaluation: 00:34 - Subjective Subjective: PGY 1 medicine note- Dr. Beth's service Pt seen and examined in no acute distress. Patient remains the same clinically. No apparent fever or chills noted. Patient is minimally responsive to tactile stimuli and nonresponsive to verbal stimuli secondary to anoxic brain injury. Patient readjusted on evaluation. Patient turned Q2H per nursing team to prevent bed sores. A ROS could not be obtained at this time due to presentation. Objective - Vital Signs/Intake and Output Vital Signs (last 24 hours): Temp Pulse Resp BP Pulse Ox 97.7 F 81 20 102/63 99 10/12/16 00:01 10/12/16 00:01 10/12/16 00:01 10/12/16 00:01 10/12/16 00:01 Intake and Output: 10/11/16 10/12/16 18:59 06:59 Output Total 400 Balance -400 - Medications Medications: Current Medications Acetaminophen (Tylenol 325mg Tab) 650 mg PO Q6 PRN PRN Reason: Fever >100.4 F Last Admin: 10/08/16 10:12 Dose: 650 mg Aspirin (Aspirin Chewable) 81 mg PEG DAILY [facility] Last Admin: 10/11/16 11:13 Dose: 81 mg Carvedilol (Coreg) 3.125 mg PEG BID [facility] Last Admin: 10/11/16 17:38 Dose: 3.125 mg Clopidogrel Bisulfate (Plavix) 75 mg PEG DAILY [facility] Last Admin: 10/11/16 11:12 Dose: 75 mg Enoxaparin Sodium (Lovenox) 30 mg SC DAILY [facility] Last Admin: 10/11/16 11:19 Dose: 30 mg Famotidine (Pepcid) 20 mg PEG DAILY [facility] Last Admin: 10/11/16 11:14 Dose: 20 mg Finasteride (Proscar) 5 mg PO DAILY [facility] Last Admin: 10/11/16 11:13 Dose: 5 mg Imipenem/Cilastatin Sodium 500 (mg/ Sodium Chloride) 100 mls @ 100 mls/hr IVPB Q6H [facility] Last Admin: 10/11/16 20:39 Dose: 100 mls/hr Levetiracetam (Keppra) 500 mg PEG BID [facility] Last Admin: 10/11/16 17:38 Dose: 500 mg Tamsulosin HCl (Flomax) 0.8 mg PO DAILY [facility] Last Admin: 10/11/16 11:13 Dose: 0.8 mg - Labs Labs: 10/11/16 08:28 10/11/16 08:28 PT 10.6 SECONDS (9.7-12.2) 11/24/15 14:10 INR 1.0 11/24/15 14:10 APTT 25 SECONDS (21-34) 11/24/15 14:10 - Constitutional Appears: No Acute Distress, Chronically Ill - Head Exam Head Exam: NORMAL INSPECTION, NORMOCEPHALIC - Eye Exam Eye Exam: PERRL Pupil Exam: PERRL - ENT Exam ENT Exam: Mucous Membranes Moist - Neck Exam Neck Exam: absent: Lymphadenopathy Additional comments: trach collar in place with minimal secretions - Respiratory Exam Respiratory Exam: absent: Wheezes, Respiratory Distress - Cardiovascular Exam Cardiovascular Exam: +S1, +S2 - GI/Abdominal Exam GI & Abdominal Exam: Soft, Normal Bowel Sounds - Exam Additional comments: baker in place currently. ( will be removed today) - Extremities Exam Extremities Exam: Normal Capillary Refill. absent: Full ROM, Joint Swelling - Back Exam Back Exam: absent: Full ROM - Neurological Exam Neurological Exam: Altered - Psychiatric Exam Psychiatric exam: Flat Affect - Skin Skin Exam: Dry, Normal Color, Warm Assessment and Plan - Assessment and Plan (Free Text) Assessment: Anoxic encephalopathy F/U labs Turn Q2 hours- Continue to monitor feeds through PEG @ 65cc/hr suctioning trach routinely Pending [facility] facility placement Hypoalbuminemia Prostat 30mL 1x / day Sacral Ulcers Healing linear 5 cm fissure with area of erythema Nursing to use barrier to prevent further progression of abrasion Continue to monitor with skin checks and Q2H turning Repositioned on examination Urinary Retention Baker in place- D/C today Flomax 0.8 mg PO daily Proscar 5mg PO daily monitor I's and O's UTI Patient afebrile overnight- Tylenol PRN for fevers Blood culture: 10/07 Coagulase negative staph; S. aureus and coat neg Staph PNA FISH f/u repeat blood culture UA: 3+ leuk est, 55 WBC, 2+ blood, 2+ protein Urine culture: Proteus Mirabilis Patient on Primaxin 500 mg in ns IVPB Q6 last day today 10/11 baker to be d/c 10/12 Dr Armstrong ID on board- help appreciated Acetaminophen PRN Failure to thrive Continuous Tube feeds increased to 65cc/hr goal with 300cc of free water flush q8H Measure weight weekly. Continue to monitor Respiratory failure Continue Current management of trach collar and secretions- continue to suction as needed CAD (coronary artery disease) s/p cardiac stents on 06/13/15 ASA 81mg via PEG daily Coreg 3.125mg PEG BID Plavix 75mg via PEG daily Seizures Keppra 500mg PEG BID for seizure prophylaxis Prophylactic measure Pepcid 20 mg PEG daily Lovenox 30mg SC daily [facility] <Donnell Ying - Last Filed: 10/14/16 15:21> Objective - Vital Signs/Intake and Output Vital Signs (last 24 hours): Temp Pulse Resp BP Pulse Ox 98.6 F 66 18 114/72 100 10/14/16 08:01 10/14/16 08:01 10/14/16 08:01 10/14/16 08:01 10/14/16 08:01 Intake and Output: 10/14/16 10/14/16 06:59 18:59 Intake Total 1970 888 Balance 1970 888 - Medications Medications: Current Medications Acetaminophen (Tylenol 325mg Tab) 650 mg PO Q6 PRN PRN Reason: Fever >100.4 F Last Admin: 10/08/16 10:12 Dose: 650 mg Aspirin (Aspirin Chewable) 81 mg PEG DAILY [facility] Last Admin: 10/14/16 11:12 Dose: 81 mg Carvedilol (Coreg) 3.125 mg PEG BID [facility] Last Admin: 10/14/16 11:14 Dose: Not Given Clopidogrel Bisulfate (Plavix) 75 mg PEG DAILY [facility] Last Admin: 10/14/16 11:12 Dose: 75 mg Enoxaparin Sodium (Lovenox) 30 mg SC DAILY [facility] Last Admin: 10/14/16 11:14 Dose: 30 mg Famotidine (Pepcid) 20 mg PEG DAILY [facility] Last Admin: 10/14/16 11:13 Dose: 20 mg Finasteride (Proscar) 5 mg PO DAILY [facility] Last Admin: 10/14/16 11:15 Dose: 5 mg Levetiracetam (Keppra) 500 mg PEG BID [facility] Last Admin: 10/14/16 11:15 Dose: 500 mg Tamsulosin HCl (Flomax) 0.8 mg PO DAILY [facility] Last Admin: 10/14/16 11:13 Dose: 0.8 mg - Labs Labs: 10/13/16 07:08 10/13/16 07:08 PT 10.6 SECONDS (9.7-12.2) 11/24/15 14:10 INR 1.0 11/24/15 14:10 APTT 25 SECONDS (21-34) 11/24/15 14:10 Attending/Attestation - Attestation I have personally seen and examined this patient.: Yes I have fully participated in the care of the patient.: Yes I have reviewed all pertinent clinical information, including history, physical exam and plan: Yes Notes (Text): 10/14/16 15:21 Patient was seen and examined at bedside No change in clinical condition Continue current management
[2016-10-12 07:52] LABS: BASO # 0.1 K/uL (0.0-0.2); BASO % 0.9 % (0.0-2.0); EOS # 0.5 K/uL (0.0-0.7); EOS % 6.3 % (0.0-4.0); HEMOGLOBIN 12.1 g/dL (12.0-18.0); LYMPH # 1.9 K/uL (1.0-4.3); LYMPH % 26.5 % (20.0-40.0); MEAN CELL VOLUME 88.1 fL (80.0-94.0); MEAN CORPUSCULAR HEMOGLOBIN 28.9 pg (27.0-31.0); MEAN CORPUSCULAR HGB CONC 32.8 g/dL (33.0-37.0); MEAN PLATELET VOLUME 8.4 fL (7.2-11.7); MONO # 0.8 K/uL (0.0-0.8); MONO % 11.1 % (0.0-10.0); NEUT # 4.1 K/uL (1.8-7.0); NEUT % 55.2 % (50.0-75.0); RBC 4.19 Mil/uL (4.40-5.90); RED CELL DISTRIBUTION WIDTH 14.8 % (11.5-14.5); WHITE BLOOD COUNT 7.3 K/uL (4.8-10.8)
[2016-10-12 08:04] LABS: ALBUMIN 3.5 g/dL (3.5-5.0)
[2016-10-12 08:07] LABS: ALB/GLOB RATIO 0.8 (1.0-2.1); AST/SGOT 31 U/L (17-59); BLOOD UREA NITROGEN 17 mg/dL (9-20); GFR NON-AFRICAN AMERICAN > 60
[2016-10-12 08:08] LABS: ALT/SGPT 46 U/L (21-72); CALCIUM 8.7 mg/dl (8.6-10.4)
[2016-10-12] MEDS: Enoxaparin 30 mg Syringe SC SCH (11:33)
[2016-10-12] MEDS: levETIRAcetam 100 mg/ml (5ml) Oral Syringe PEG SCH ×2 (11:34→17:15)
[2016-10-13 07:30] LABS: BASO # 0.1 K/uL (0.0-0.2); BASO % 0.9 % (0.0-2.0); EOS # 0.4 K/uL (0.0-0.7); EOS % 5.5 % (0.0-4.0); HEMOGLOBIN 12.6 g/dL (12.0-18.0); LYMPH % 25.4 % (20.0-40.0); MEAN CELL VOLUME 87.7 fL (80.0-94.0); MEAN CORPUSCULAR HEMOGLOBIN 28.8 pg (27.0-31.0); MEAN CORPUSCULAR HGB CONC 32.9 g/dL (33.0-37.0); MEAN PLATELET VOLUME 8.5 fL (7.2-11.7); MONO # 0.7 K/uL (0.0-0.8); MONO % 8.7 % (0.0-10.0); NEUT # 4.8 K/uL (1.8-7.0); NEUT % 59.5 % (50.0-75.0); NRBC % 0.2 % (0.0-2.0); RBC 4.37 Mil/uL (4.40-5.90); RED CELL DISTRIBUTION WIDTH 14.9 % (11.5-14.5)
[2016-10-13 07:32] LABS: ALBUMIN 3.7 g/dL (3.5-5.0)
[2016-10-13 07:35] LABS: ALB/GLOB RATIO 0.8 (1.0-2.1); AST/SGOT 48 U/L (17-59); BLOOD UREA NITROGEN 18 mg/dL (9-20); GFR NON-AFRICAN AMERICAN > 60
[2016-10-13 07:36] LABS: ALT/SGPT 44 U/L (21-72); CALCIUM 8.9 mg/dl (8.6-10.4)
[2016-10-13] MEDS: levETIRAcetam 100 mg/ml (5ml) Oral Syringe PEG SCH ×2 (09:03→18:00)
[2016-10-13] MEDS: Enoxaparin 30 mg Syringe SC SCH (09:04)
--- NOTE | 2016-10-13 17:15 | CP.PCM.PN ---
<Merrick Heck - Last Filed: 10/13/16 16:52> Subjective - Date & Time of Evaluation Date of Evaluation: 10/13/16 Time of Evaluation: 10:00 - Subjective Subjective: PGY3 Resident Note - hospitalist service Patient seen and examined at bedside this AM. Resting in bed ; no acute events overnight per nursing. Trach, peg and condom catheter all in place. Objective - Vital Signs/Intake and Output Vital Signs (last 24 hours): Temp Pulse Resp BP Pulse Ox 97.7 F 83 18 102/68 100 10/13/16 08:00 10/13/16 10:36 10/13/16 08:00 10/13/16 08:00 10/13/16 08:00 Intake and Output: 10/13/16 10/13/16 06:59 18:59 Intake Total 620 Output Total 0 Balance 620 - Medications Medications: Current Medications Acetaminophen (Tylenol 325mg Tab) 650 mg PO Q6 PRN PRN Reason: Fever >100.4 F Last Admin: 10/08/16 10:12 Dose: 650 mg Aspirin (Aspirin Chewable) 81 mg PEG DAILY [facility] Last Admin: 10/13/16 09:03 Dose: 81 mg Carvedilol (Coreg) 3.125 mg PEG BID [facility] Last Admin: 10/13/16 09:03 Dose: 3.125 mg Clopidogrel Bisulfate (Plavix) 75 mg PEG DAILY [facility] Last Admin: 10/13/16 09:03 Dose: 75 mg Enoxaparin Sodium (Lovenox) 30 mg SC DAILY [facility] Last Admin: 10/13/16 09:04 Dose: 30 mg Famotidine (Pepcid) 20 mg PEG DAILY [facility] Last Admin: 10/13/16 09:03 Dose: 20 mg Finasteride (Proscar) 5 mg PO DAILY [facility] Last Admin: 10/13/16 09:03 Dose: 5 mg Imipenem/Cilastatin Sodium 500 (mg/ Sodium Chloride) 100 mls @ 100 mls/hr IVPB Q6H [facility] Last Admin: 10/13/16 14:17 Dose: 100 mls/hr Levetiracetam (Keppra) 500 mg PEG BID [facility] Last Admin: 10/13/16 09:03 Dose: 500 mg Tamsulosin HCl (Flomax) 0.8 mg PO DAILY [facility] Last Admin: 10/13/16 09:02 Dose: 0.8 mg - Labs Labs: 10/13/16 07:08 10/13/16 07:08 PT 10.6 SECONDS (9.7-12.2) 11/24/15 14:10 INR 1.0 11/24/15 14:10 APTT 25 SECONDS (21-34) 11/24/15 14:10 - Constitutional Appears: No Acute Distress, Chronically Ill - Head Exam Head Exam: NORMOCEPHALIC - Eye Exam Eye Exam: PERRL. absent: EOMI Pupil Exam: NORMAL ACCOMODATION - ENT Exam ENT Exam: Mucous Membranes Moist, Normal Oropharynx - Respiratory Exam Respiratory Exam: NORMAL BREATHING PATTERN. absent: Accessory Muscle Use, Rhonchi, Wheezes, Respiratory Distress Additional comments: trach in place on ventilator - Cardiovascular Exam Cardiovascular Exam: REGULAR RHYTHM, RRR, +S1, +S2 - GI/Abdominal Exam GI & Abdominal Exam: Soft, Normal Bowel Sounds Additional comments: Peg tube in place; c/d/i - Extremities Exam Additional comments: plantar flexed ankles; in unna boots - Neurological Exam Neurological Exam: Awake. absent: Alert, Oriented x3 Assessment and Plan - Assessment and Plan (Free Text) Assessment: Anoxic encephalopathy F/U labs Turn Q2 hours- Continue to monitor feeds through PEG @ 65cc/hr suctioning trach routinely Pending group home facility placement Hypoalbuminemia Prostat 30mL 1x / day Sacral Ulcers Healing linear 5 cm fissure with area of erythema Nursing to use barrier to prevent further progression of abrasion Continue to monitor with skin checks and Q2H turning Repositioned on examination Urinary Retention Yoo DCed 10/12 - Condom cath in place now Flomax 0.8 mg PO daily Proscar 5mg PO daily monitor I's and O's UTI Patient afebrile overnight- Tylenol PRN for fevers Blood culture: 10/09 Coagulase negative staph positive x 1 (second culture negative) UA: 3+ leuk est, 55 WBC, 2+ blood, 2+ protein Dr Armstrong ID on board- help appreciated Acetaminophen PRN Failure to thrive Continuous Tube feeds increased to 65cc/hr goal with 300cc of free water flush q8H Measure weight weekly. Continue to monitor Respiratory failure Continue Current management of trach collar and secretions- continue to suction as needed CAD (coronary artery disease) s/p cardiac stents on 06/13/15 ASA 81mg via PEG daily Coreg 3.125mg PEG BID Plavix 75mg via PEG daily Seizures Keppra 500mg PEG BID for seizure prophylaxis Prophylactic measure Pepcid 20 mg PEG daily Lovenox 30mg SC daily [facility] <Donnell Ying M - Last Filed: 10/13/16 17:28> Objective - Vital Signs/Intake and Output Vital Signs (last 24 hours): Temp Pulse Resp BP Pulse Ox 97.7 F 83 18 102/68 100 10/13/16 08:00 10/13/16 16:55 10/13/16 08:00 10/13/16 08:00 10/13/16 08:00 Intake and Output: 10/13/16 10/13/16 06:59 18:59 Intake Total 620 Output Total 0 Balance 620 - Medications Medications: Current Medications Acetaminophen (Tylenol 325mg Tab) 650 mg PO Q6 PRN PRN Reason: Fever >100.4 F Last Admin: 10/08/16 10:12 Dose: 650 mg Aspirin (Aspirin Chewable) 81 mg PEG DAILY [facility] Last Admin: 10/13/16 09:03 Dose: 81 mg Carvedilol (Coreg) 3.125 mg PEG BID [facility] Last Admin: 10/13/16 09:03 Dose: 3.125 mg Clopidogrel Bisulfate (Plavix) 75 mg PEG DAILY [facility] Last Admin: 10/13/16 09:03 Dose: 75 mg Enoxaparin Sodium (Lovenox) 30 mg SC DAILY [facility] Last Admin: 10/13/16 09:04 Dose: 30 mg Famotidine (Pepcid) 20 mg PEG DAILY [facility] Last Admin: 10/13/16 09:03 Dose: 20 mg Finasteride (Proscar) 5 mg PO DAILY [facility] Last Admin: 10/13/16 09:03 Dose: 5 mg Imipenem/Cilastatin Sodium 500 (mg/ Sodium Chloride) 100 mls @ 100 mls/hr IVPB Q6H [facility] Last Admin: 10/13/16 14:17 Dose: 100 mls/hr Levetiracetam (Keppra) 500 mg PEG BID [facility] Last Admin: 10/13/16 09:03 Dose: 500 mg Tamsulosin HCl (Flomax) 0.8 mg PO DAILY [facility] Last Admin: 10/13/16 09:02 Dose: 0.8 mg - Labs Labs: 10/13/16 07:08 10/13/16 07:08 PT 10.6 SECONDS (9.7-12.2) 11/24/15 14:10 INR 1.0 11/24/15 14:10 APTT 25 SECONDS (21-34) 11/24/15 14:10 Attending/Attestation - Attestation I have personally seen and examined this patient.: Yes I have fully participated in the care of the patient.: Yes I have reviewed all pertinent clinical information, including history, physical exam and plan: Yes Notes (Text): 10/13/16 17:28 Patient was seen and examined at bedside No change in clinical condition Antibiotics completed for UTI Continue current management Discussed the plan of care with the resident
[2016-10-14] MEDS: Enoxaparin 30 mg Syringe SC SCH (11:14)
[2016-10-14] MEDS: levETIRAcetam 100 mg/ml (5ml) Oral Syringe PEG SCH ×2 (11:15→18:00)
--- NOTE | 2016-10-14 13:38 | CP.PCM.PN ---
<Merrick Heck - Last Filed: 10/14/16 15:27> Subjective - Date & Time of Evaluation Date of Evaluation: 10/14/16 Time of Evaluation: 14:00 - Subjective Subjective: PGY3 Resident - hospitalist service Patient seen and examined at bedside this AM. No acute events overnight per nursing - discussed that IV Primaxin was to be discontinued and orders placed and reviewed with nurse Estrella. No changes otherwise, trach, PEG and condom catheter in place. ROS unattainable secondary to anoxic brain encephalopathy. Objective - Vital Signs/Intake and Output Vital Signs (last 24 hours): Temp Pulse Resp BP Pulse Ox 98.6 F 66 18 114/72 100 10/14/16 08:01 10/14/16 08:01 10/14/16 08:01 10/14/16 08:01 10/14/16 08:01 Intake and Output: 10/14/16 10/14/16 06:59 18:59 Intake Total 1970 Balance 1970 - Medications Medications: Current Medications Acetaminophen (Tylenol 325mg Tab) 650 mg PO Q6 PRN PRN Reason: Fever >100.4 F Last Admin: 10/08/16 10:12 Dose: 650 mg Aspirin (Aspirin Chewable) 81 mg PEG DAILY [facility] Last Admin: 10/14/16 11:12 Dose: 81 mg Carvedilol (Coreg) 3.125 mg PEG BID [facility] Last Admin: 10/14/16 11:14 Dose: Not Given Clopidogrel Bisulfate (Plavix) 75 mg PEG DAILY [facility] Last Admin: 10/14/16 11:12 Dose: 75 mg Enoxaparin Sodium (Lovenox) 30 mg SC DAILY [facility] Last Admin: 10/14/16 11:14 Dose: 30 mg Famotidine (Pepcid) 20 mg PEG DAILY [facility] Last Admin: 10/14/16 11:13 Dose: 20 mg Finasteride (Proscar) 5 mg PO DAILY [facility] Last Admin: 10/14/16 11:15 Dose: 5 mg Imipenem/Cilastatin Sodium 500 (mg/ Sodium Chloride) 100 mls @ 100 mls/hr IVPB Q6H [facility] Last Admin: 10/14/16 09:00 Dose: 100 mls/hr Levetiracetam (Keppra) 500 mg PEG BID [facility] Last Admin: 10/14/16 11:15 Dose: 500 mg Tamsulosin HCl (Flomax) 0.8 mg PO DAILY [facility] Last Admin: 10/14/16 11:13 Dose: 0.8 mg - Labs Labs: 10/13/16 07:08 10/13/16 07:08 PT 10.6 SECONDS (9.7-12.2) 11/24/15 14:10 INR 1.0 11/24/15 14:10 APTT 25 SECONDS (21-34) 11/24/15 14:10 - Constitutional Appears: No Acute Distress, Chronically Ill - Head Exam Head Exam: NORMAL INSPECTION, NORMOCEPHALIC - Eye Exam Eye Exam: Normal appearance, PERRL - ENT Exam ENT Exam: Mucous Membranes Moist, Normal Oropharynx - Respiratory Exam Respiratory Exam: Clear to Ausculation Bilateral, NORMAL BREATHING PATTERN - Cardiovascular Exam Cardiovascular Exam: REGULAR RHYTHM, +S1, +S2 - GI/Abdominal Exam GI & Abdominal Exam: Soft, Normal Bowel Sounds Additional comments: peg site c/d/i - Extremities Exam Extremities Exam: Normal Capillary Refill Additional comments: feet/ankles in cushioned boots for ulcer prophylaxis, plantarflexed bilaterally - Neurological Exam Neurological Exam: Awake. 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 Hypoalbuminemia Prostat 30mL 1x / day Sacral Ulcers Healing linear 5 cm fissure with area of erythema Nursing to use barrier to prevent further progression of abrasion Continue to monitor with skin checks and Q2H turning Repositioned on examination Urinary Retention Yoo DCed 10/12 - Condom cath in place now Flomax 0.8 mg PO daily Proscar 5mg PO daily monitor I's and O's UTI Patient afebrile overnight- Tylenol PRN for fevers Completed course of IV Primaxin - to be discontinued Blood culture: 10/09 Coagulase negative staph positive x 1 (second culture negative) UA: 3+ leuk est, 55 WBC, 2+ blood, 2+ protein Dr Armstrong ID on board- help appreciated Acetaminophen PRN Failure to thrive Continuous Tube feeds increased to 65cc/hr goal with 300cc of free water flush q8H Measure weight weekly. Continue to monitor Respiratory failure Continue Current management of trach collar and secretions- continue to suction as needed CAD (coronary artery disease) s/p cardiac stents on 06/13/15 ASA 81mg via PEG daily Coreg 3.125mg PEG BID Plavix 75mg via PEG daily Seizures Keppra 500mg PEG BID for seizure prophylaxis Prophylactic measure Pepcid 20 mg PEG daily Lovenox 30mg SC daily SCD[facility] <Donnell Ying M - Last Filed: 10/15/16 09:29> Objective - Vital Signs/Intake and Output Vital Signs (last 24 hours): Temp Pulse Resp BP Pulse Ox 98.8 F 83 20 109/74 98 10/15/16 07:52 10/15/16 08:42 10/15/16 07:52 10/15/16 07:52 10/15/16 07:52 Intake and Output: 10/15/16 10/15/16 06:59 18:59 Intake Total 1230 Output Total 350 Balance 880 - Medications Medications: Current Medications Acetaminophen (Tylenol 325mg Tab) 650 mg PO Q6 PRN PRN Reason: Fever >100.4 F Last Admin: 10/08/16 10:12 Dose: 650 mg Aspirin (Aspirin Chewable) 81 mg PEG DAILY [facility] Last Admin: 10/14/16 11:12 Dose: 81 mg Carvedilol (Coreg) 3.125 mg PEG BID [facility] Last Admin: 10/14/16 18:00 Dose: 3.125 mg Clopidogrel Bisulfate (Plavix) 75 mg PEG DAILY [facility] Last Admin: 10/14/16 11:12 Dose: 75 mg Enoxaparin Sodium (Lovenox) 30 mg SC DAILY [facility] Last Admin: 10/14/16 11:14 Dose: 30 mg Famotidine (Pepcid) 20 mg PEG DAILY [facility] Last Admin: 10/14/16 11:13 Dose: 20 mg Finasteride (Proscar) 5 mg PO DAILY [facility] Last Admin: 10/14/16 11:15 Dose: 5 mg Levetiracetam (Keppra) 500 mg PEG BID [facility] Last Admin: 10/14/16 18:00 Dose: 500 mg Tamsulosin HCl (Flomax) 0.8 mg PO DAILY [facility] Last Admin: 10/14/16 11:13 Dose: 0.8 mg - Labs Labs: 10/13/16 07:08 10/13/16 07:08 PT 10.6 SECONDS (9.7-12.2) 11/24/15 14:10 INR 1.0 11/24/15 14:10 APTT 25 SECONDS (21-34) 11/24/15 14:10 Attending/Attestation - Attestation I have personally seen and examined this patient.: Yes I have fully participated in the care of the patient.: Yes I have reviewed all pertinent clinical information, including history, physical exam and plan: Yes Notes (Text): 10/15/16 09:29 Patient was seen and examined at bedside No change in clinical condition Continue current management Turn and position the patient every 2 hours to prevent decubitus ulcers
[2016-10-15] MEDS: Enoxaparin 30 mg Syringe SC SCH (10:35)
[2016-10-15] MEDS: levETIRAcetam 100 mg/ml (5ml) Oral Syringe PEG SCH ×2 (10:56→18:00)
--- NOTE | 2016-10-15 11:44 | CP.PCM.PN ---
<Judith Forrester - Last Filed: 10/15/16 12:21> Subjective - Date & Time of Evaluation Date of Evaluation: 10/15/16 Time of Evaluation: 09:15 - Subjective Subjective: PGY-1 Note- Dr. Ying's service Patient seen and examined at bedside. No acute events overnight per report. Patient with trach, PEG, condom catheter. Objective - Vital Signs/Intake and Output Vital Signs (last 24 hours): Temp Pulse Resp BP Pulse Ox 98.8 F 83 20 109/74 98 10/15/16 07:52 10/15/16 08:42 10/15/16 07:52 10/15/16 07:52 10/15/16 07:52 Intake and Output: 10/15/16 10/15/16 06:59 18:59 Intake Total 1230 Output Total 350 Balance 880 - Medications Medications: Current Medications Acetaminophen (Tylenol 325mg Tab) 650 mg PO Q6 PRN PRN Reason: Fever >100.4 F Last Admin: 10/08/16 10:12 Dose: 650 mg Aspirin (Aspirin Chewable) 81 mg PEG DAILY [facility] Last Admin: 10/15/16 10:35 Dose: 81 mg Carvedilol (Coreg) 3.125 mg PEG BID [facility] Last Admin: 10/15/16 10:35 Dose: 3.125 mg Clopidogrel Bisulfate (Plavix) 75 mg PEG DAILY [facility] Last Admin: 10/15/16 10:35 Dose: 75 mg Enoxaparin Sodium (Lovenox) 30 mg SC DAILY [facility] Last Admin: 10/15/16 10:35 Dose: 30 mg Famotidine (Pepcid) 20 mg PEG DAILY [facility] Last Admin: 10/15/16 10:35 Dose: 20 mg Finasteride (Proscar) 5 mg PO DAILY [facility] Last Admin: 10/15/16 10:35 Dose: 5 mg Levetiracetam (Keppra) 500 mg PEG BID [facility] Last Admin: 10/15/16 10:56 Dose: 500 mg Tamsulosin HCl (Flomax) 0.8 mg PO DAILY [facility] Last Admin: 10/15/16 10:35 Dose: 0.8 mg - Labs Labs: 10/13/16 07:08 10/13/16 07:08 PT 10.6 SECONDS (9.7-12.2) 11/24/15 14:10 INR 1.0 11/24/15 14:10 APTT 25 SECONDS (21-34) 11/24/15 14:10 - Constitutional Appears: No Acute Distress, Chronically Ill - Eye Exam Eye Exam: Normal appearance Pupil Exam: PERRL - ENT Exam ENT Exam: Mucous Membranes Moist - Neck Exam Additional comments: trach - Respiratory Exam Respiratory Exam: Clear to Ausculation Bilateral, NORMAL BREATHING PATTERN Additional comments: coarse upper airway sounds - Cardiovascular Exam Cardiovascular Exam: +S1, +S2 - GI/Abdominal Exam GI & Abdominal Exam: Soft, Normal Bowel Sounds Additional comments: PEG site clean, dressed, no leakage appreciated - Exam Additional comments: condom catheter present - Extremities Exam Additional comments: 1+ bilateral pitting edema of lower extremities SCDs present - Neurological Exam Neurological Exam: Awake. absent: Alert - Skin Skin Exam: Dry, Warm Additional comments: darkened skin on back of hips/ thighs Assessment and Plan - Assessment and Plan (Free Text) Assessment: Anoxic encephalopathy F/U labs every Thursday Turn Q2 hours- Continue to monitor feeds through PEG @ reduced rate 60cc/hr per Nutrition recommendations suctioning trach routinely Pending [facility] facility placement Hypoalbuminemia Prostat 30mL 1x / day Sacral Ulcers Healing linear 5 cm fissure with area of erythema Nursing to use barrier to prevent further progression of abrasion Continue to monitor with skin checks and Q2H turning Urinary Retention Yoo DCed 10/12 - Condom cath in place now Flomax 0.8 mg PO daily Proscar 5mg PO daily monitor I's and O's UTI Patient afebrile overnight- Tylenol PRN for fevers Patient completed course of Primaxin from 10/05- 10/14. Blood culture: 10/09 Coagulase negative staph positive x 1 (second culture negative) will repeat blood culture today 10/15 UA: 3+ leuk est, 55 WBC, 2+ blood, 2+ protein Dr Armstrong ID on board- help appreciated Acetaminophen PRN Failure to thrive Continuous Tube feeds at 60cc/hr goal per nutrition recommendations with 300cc of free water flush q8H Measure weight weekly. Continue to monitor Respiratory failure Continue Current management of trach collar and secretions- continue to suction as needed CAD (coronary artery disease) s/p cardiac stents on 06/13/15 ASA 81mg via PEG daily Coreg 3.125mg PEG BID Plavix 75mg via PEG daily Seizures Keppra 500mg PEG BID for seizure prophylaxis Lower extremity edema giving one dose lasix 40mg via PEG today Prophylactic measure Pepcid 20 mg PEG daily Lovenox 30mg SC daily [facility] <Donnell Ying - Last Filed: 10/15/16 16:11> Objective - Vital Signs/Intake and Output Vital Signs (last 24 hours): Temp Pulse Resp BP Pulse Ox 98.8 F 83 20 106/73 98 10/15/16 07:52 10/15/16 08:42 10/15/16 07:52 10/15/16 12:24 10/15/16 07:52 Intake and Output: 10/15/16 10/15/16 06:59 18:59 Intake Total 1230 Output Total 350 250 Balance 880 -250 - Medications Medications: Current Medications Acetaminophen (Tylenol 325mg Tab) 650 mg PO Q6 PRN PRN Reason: Fever >100.4 F Last Admin: 10/08/16 10:12 Dose: 650 mg Aspirin (Aspirin Chewable) 81 mg PEG DAILY [facility] Last Admin: 10/15/16 10:35 Dose: 81 mg Carvedilol (Coreg) 3.125 mg PEG BID [facility] Last Admin: 10/15/16 10:35 Dose: 3.125 mg Clopidogrel Bisulfate (Plavix) 75 mg PEG DAILY [facility] Last Admin: 10/15/16 10:35 Dose: 75 mg Enoxaparin Sodium (Lovenox) 30 mg SC DAILY [facility] Last Admin: 10/15/16 10:35 Dose: 30 mg Famotidine (Pepcid) 20 mg PEG DAILY [facility] Last Admin: 10/15/16 10:35 Dose: 20 mg Finasteride (Proscar) 5 mg PO DAILY [facility] Last Admin: 10/15/16 10:35 Dose: 5 mg Levetiracetam (Keppra) 500 mg PEG BID [facility] Last Admin: 10/15/16 10:56 Dose: 500 mg Tamsulosin HCl (Flomax) 0.8 mg PO DAILY [facility] Last Admin: 10/15/16 10:35 Dose: 0.8 mg - Labs Labs: 10/13/16 07:08 10/13/16 07:08 PT 10.6 SECONDS (9.7-12.2) 11/24/15 14:10 INR 1.0 11/24/15 14:10 APTT 25 SECONDS (21-34) 11/24/15 14:10 Attending/Attestation - Attestation I have personally seen and examined this patient.: Yes I have fully participated in the care of the patient.: Yes I have reviewed all pertinent clinical information, including history, physical exam and plan: Yes Notes (Text): 10/15/16 16:10 Patient was seen and examined at bedside Patient appears to be edematous We will give 1 dose of Lasix today Continue to turn and position every 2 hours to prevent decubitus ulcers
--- NOTE | 2016-10-16 03:00 | CP.PCM.PN ---
<Drake Alicea - Last Filed: 10/16/16 02:57> Subjective - Date & Time of Evaluation Date of Evaluation: 10/16/16 Time of Evaluation: 02:57 - Subjective Subjective: PGY-1 Note- Dr. Ying's service Patient seen and examined at bedside. Patient is resting comfortably. No acute events overnight per report. Patient with trach, PEG, condom catheter. Objective - Vital Signs/Intake and Output Vital Signs (last 24 hours): Temp Pulse Resp BP Pulse Ox 98.1 F 80 20 105/72 99 10/15/16 23:50 10/15/16 23:50 10/15/16 23:50 10/15/16 23:50 10/15/16 23:50 Intake and Output: 10/15/16 10/16/16 18:59 06:59 Intake Total 820 Output Total 250 Balance -250 820 - Medications Medications: Current Medications Acetaminophen (Tylenol 325mg Tab) 650 mg PO Q6 PRN PRN Reason: Fever >100.4 F Last Admin: 10/08/16 10:12 Dose: 650 mg Aspirin (Aspirin Chewable) 81 mg PEG DAILY [facility] Last Admin: 10/15/16 10:35 Dose: 81 mg Carvedilol (Coreg) 3.125 mg PEG BID [facility] Last Admin: 10/15/16 18:00 Dose: 3.125 mg Clopidogrel Bisulfate (Plavix) 75 mg PEG DAILY [facility] Last Admin: 10/15/16 10:35 Dose: 75 mg Enoxaparin Sodium (Lovenox) 30 mg SC DAILY [facility] Last Admin: 10/15/16 10:35 Dose: 30 mg Famotidine (Pepcid) 20 mg PEG DAILY [facility] Last Admin: 10/15/16 10:35 Dose: 20 mg Finasteride (Proscar) 5 mg PO DAILY [facility] Last Admin: 10/15/16 10:35 Dose: 5 mg Levetiracetam (Keppra) 500 mg PEG BID [facility] Last Admin: 10/15/16 18:00 Dose: 500 mg Tamsulosin HCl (Flomax) 0.8 mg PO DAILY [facility] Last Admin: 10/15/16 10:35 Dose: 0.8 mg - Labs Labs: 10/13/16 07:08 10/13/16 07:08 PT 10.6 SECONDS (9.7-12.2) 11/24/15 14:10 INR 1.0 11/24/15 14:10 APTT 25 SECONDS (21-34) 11/24/15 14:10 - Constitutional Appears: No Acute Distress, Chronically Ill - Head Exam Head Exam: ATRAUMATIC, NORMOCEPHALIC - Eye Exam Eye Exam: Normal appearance Pupil Exam: NORMAL ACCOMODATION - ENT Exam ENT Exam: Mucous Membranes Moist - Neck Exam Neck Exam: Normal Inspection - Respiratory Exam Respiratory Exam: Clear to Ausculation Bilateral, NORMAL BREATHING PATTERN. absent: Rales, Rhonchi, Wheezes - Cardiovascular Exam Cardiovascular Exam: REGULAR RHYTHM, +S1, +S2. absent: Gallop, Rubs, Murmur - GI/Abdominal Exam GI & Abdominal Exam: Soft, Normal Bowel Sounds. 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 Blood culture: 10/09 Coagulase negative staph positive x 1 (second culture negative) F/U repeat blood culture done 10/15 UA: 3+ leuk est, 55 WBC, 2+ blood, 2+ protein Dr Armstrong ID on board- help appreciated Acetaminophen PRN Failure to thrive Continuous Tube feeds at 60cc/hr goal per nutrition recommendations with 300cc of free water flush q8H Measure weight weekly. Continue to monitor Respiratory failure Continue Current management of trach collar and secretions- continue to suction as needed CAD (coronary artery disease) s/p cardiac stents on 06/13/15 ASA 81mg via PEG daily Coreg 3.125mg PEG BID Plavix 75mg via PEG daily Seizures Keppra 500mg PEG BID for seizure prophylaxis Lower extremity edema giving one dose lasix 40mg via PEG today Prophylactic measure Pepcid 20 mg PEG daily Lovenox 30mg SC daily SCD[facility] <Donnell Ying M - Last Filed: 10/16/16 12:20> Objective - Vital Signs/Intake and Output Vital Signs (last 24 hours): Temp Pulse Resp BP Pulse Ox 98.1 F 80 20 105/72 99 10/15/16 23:50 10/15/16 23:50 10/15/16 23:50 10/15/16 23:50 10/15/16 23:50 Intake and Output: 10/16/16 10/16/16 06:59 18:59 Intake Total 1640 Output Total 200 Balance 1440 - Medications Medications: Current Medications Acetaminophen (Tylenol 325mg Tab) 650 mg PO Q6 PRN PRN Reason: Fever >100.4 F Last Admin: 10/08/16 10:12 Dose: 650 mg Aspirin (Aspirin Chewable) 81 mg PEG DAILY [facility] Last Admin: 10/16/16 10:59 Dose: 81 mg Carvedilol (Coreg) 3.125 mg PEG BID [facility] Last Admin: 10/16/16 10:58 Dose: 3.125 mg Clopidogrel Bisulfate (Plavix) 75 mg PEG DAILY [facility] Last Admin: 10/16/16 10:59 Dose: 75 mg Enoxaparin Sodium (Lovenox) 30 mg SC DAILY [facility] Last Admin: 10/16/16 10:59 Dose: 30 mg Famotidine (Pepcid) 20 mg PEG DAILY [facility] Last Admin: 10/16/16 10:59 Dose: 20 mg Finasteride (Proscar) 5 mg PO DAILY [facility] Last Admin: 10/16/16 10:59 Dose: 5 mg Levetiracetam (Keppra) 500 mg PEG BID [facility] Last Admin: 10/16/16 11:45 Dose: 500 mg Tamsulosin HCl (Flomax) 0.8 mg PO DAILY [facility] Last Admin: 10/16/16 10:58 Dose: 0.8 mg - Labs Labs: 10/13/16 07:08 10/13/16 07:08 PT 10.6 SECONDS (9.7-12.2) 11/24/15 14:10 INR 1.0 11/24/15 14:10 APTT 25 SECONDS (21-34) 11/24/15 14:10 Attending/Attestation - Attestation I have personally seen and examined this patient.: Yes I have fully participated in the care of the patient.: Yes I have reviewed all pertinent clinical information, including history, physical exam and plan: Yes Notes (Text): 10/16/16 12:19 Patient was seen and examined at bedside independently Continue care of for tracheostomy and PEG tube Turn and position the patient every 2 hours to prevent decubitus ulcers Reduce the feeding to 60 mL/h Discussed with the nursing staff I agree with the above history and physical and assessment/plan by the resident
[2016-10-16] MEDS: Enoxaparin 30 mg Syringe SC SCH (10:59)
[2016-10-16] MEDS: levETIRAcetam 100 mg/ml (5ml) Oral Syringe PEG SCH ×2 (11:45→18:24)
[2016-10-17] MEDS: Enoxaparin 30 mg Syringe SC SCH (09:29)
--- NOTE | 2016-10-17 10:31 | CP.PCM.PN ---
<Merrick Heck - Last Filed: 10/17/16 14:07> Subjective - Date & Time of Evaluation Date of Evaluation: 10/17/16 Time of Evaluation: 09:00 - Subjective Subjective: [email or web address] Resident - Hospitalist Service Patient seen and examined at bedside this AM. No acute changes overnight - PEG tube and trach in place, c/d/i. Condom catheter to be changed. Objective - Vital Signs/Intake and Output Vital Signs (last 24 hours): Temp Pulse Resp BP Pulse Ox 98.5 F 85 20 95/61 L 99 10/17/16 08:00 10/17/16 08:00 10/17/16 08:00 10/17/16 08:00 10/17/16 08:00 Intake and Output: 10/17/16 10/17/16 06:59 18:59 Intake Total 1560 Balance 1560 - Medications Medications: Current Medications Acetaminophen (Tylenol 325mg Tab) 650 mg PO Q6 PRN PRN Reason: Fever >100.4 F Last Admin: 10/08/16 10:12 Dose: 650 mg Aspirin (Aspirin Chewable) 81 mg PEG DAILY [facility] Last Admin: 10/17/16 09:29 Dose: 81 mg Carvedilol (Coreg) 3.125 mg PEG BID [facility] Last Admin: 10/17/16 09:29 Dose: 3.125 mg Clopidogrel Bisulfate (Plavix) 75 mg PEG DAILY [facility] Last Admin: 10/17/16 09:29 Dose: 75 mg Enoxaparin Sodium (Lovenox) 30 mg SC DAILY [facility] Last Admin: 10/17/16 09:29 Dose: 30 mg Famotidine (Pepcid) 20 mg PEG DAILY [facility] Last Admin: 10/17/16 09:29 Dose: 20 mg Finasteride (Proscar) 5 mg PO DAILY [facility] Last Admin: 10/17/16 09:29 Dose: 5 mg Levetiracetam (Keppra) 500 mg PEG BID [facility] Last Admin: 10/16/16 18:24 Dose: 500 mg Tamsulosin HCl (Flomax) 0.8 mg PO DAILY [facility] Last Admin: 10/17/16 09:29 Dose: 0.8 mg - Labs Labs: 10/13/16 07:08 10/13/16 07:08 PT 10.6 SECONDS (9.7-12.2) 11/24/15 14:10 INR 1.0 11/24/15 14:10 APTT 25 SECONDS (21-34) 11/24/15 14:10 - Constitutional Appears: Chronically Ill - Eye Exam Eye Exam: Normal appearance, PERRL - ENT Exam ENT Exam: Mucous Membranes Moist - Respiratory Exam Respiratory Exam: Clear to Ausculation Bilateral, NORMAL BREATHING PATTERN. 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 Blood culture: 10/09 Coagulase negative staph positive x 1 (second culture negative) F/U repeat blood culture done 10/15 UA: 3+ leuk est, 55 WBC, 2+ blood, 2+ protein Dr Armstrong ID on board- help appreciated Acetaminophen PRN Failure to thrive Continuous Tube feeds at 60cc/hr goal per nutrition recommendations with 300cc of free water flush q8H Measure weight weekly. Continue to monitor Respiratory failure Continue Current management of trach collar and secretions- continue to suction as needed CAD (coronary artery disease) s/p cardiac stents on 06/13/15 ASA 81mg via PEG daily Coreg 3.125mg PEG BID Plavix 75mg via PEG daily Seizures Keppra 500mg PEG BID for seizure prophylaxis Lower extremity edema giving one dose lasix 40mg via PEG today Prophylactic measure Pepcid 20 mg PEG daily Lovenox 30mg SC daily [facility] <Donnell Ying - Last Filed: 10/17/16 15:22> Objective - Vital Signs/Intake and Output Vital Signs (last 24 hours): Temp Pulse Resp BP Pulse Ox 98.5 F 85 20 95/61 L 99 10/17/16 08:00 10/17/16 08:00 10/17/16 08:00 10/17/16 08:00 10/17/16 08:00 Intake and Output: 10/17/16 10/17/16 06:59 18:59 Intake Total 1560 Balance 1560 - Medications Medications: Current Medications Acetaminophen (Tylenol 325mg Tab) 650 mg PO Q6 PRN PRN Reason: Fever >100.4 F Last Admin: 10/08/16 10:12 Dose: 650 mg Aspirin (Aspirin Chewable) 81 mg PEG DAILY [facility] Last Admin: 10/17/16 09:29 Dose: 81 mg Carvedilol (Coreg) 3.125 mg PEG BID [facility] Last Admin: 10/17/16 09:29 Dose: 3.125 mg Clopidogrel Bisulfate (Plavix) 75 mg PEG DAILY [facility] Last Admin: 10/17/16 09:29 Dose: 75 mg Enoxaparin Sodium (Lovenox) 30 mg SC DAILY [facility] Last Admin: 10/17/16 09:29 Dose: 30 mg Famotidine (Pepcid) 20 mg PEG DAILY [facility] Last Admin: 10/17/16 09:29 Dose: 20 mg Finasteride (Proscar) 5 mg PO DAILY [facility] Last Admin: 10/17/16 09:29 Dose: 5 mg Levetiracetam (Keppra) 500 mg PEG BID [facility] Last Admin: 10/17/16 10:56 Dose: 500 mg Tamsulosin HCl (Flomax) 0.8 mg PO DAILY [facility] Last Admin: 10/17/16 09:29 Dose: 0.8 mg - Labs Labs: 10/13/16 07:08 10/13/16 07:08 PT 10.6 SECONDS (9.7-12.2) 11/24/15 14:10 INR 1.0 11/24/15 14:10 APTT 25 SECONDS (21-34) 11/24/15 14:10 Attending/Attestation - Attestation I have personally seen and examined this patient.: Yes I have fully participated in the care of the patient.: Yes I have reviewed all pertinent clinical information, including history, physical exam and plan: Yes Notes (Text): 10/17/16 15:21 Patient was seen and examined at bedside Continue current medical management Agree with the above history and physical and assessment/plan by the resident
[2016-10-17] MEDS: levETIRAcetam 100 mg/ml (5ml) Oral Syringe PEG SCH ×2 (10:56→17:29)
--- NOTE | 2016-10-18 01:42 | CP.PCM.PN ---
<Karim,Iram - Last Filed: 10/18/16 02:35> Subjective - Date & Time of Evaluation Date of Evaluation: 10/18/16 Time of Evaluation: 01:39 - Subjective Subjective: Patient seen and examined. No new events overnight. PEG, trach and catheter are in place. ROS are unattainable due to anoxic brain encephalopathy. Objective - Vital Signs/Intake and Output Vital Signs (last 24 hours): Temp Pulse Resp BP Pulse Ox 97.3 F L 78 20 100/70 99 10/17/16 23:54 10/17/16 23:54 10/17/16 23:54 10/17/16 23:54 10/17/16 23:54 Intake and Output: 10/17/16 10/18/16 18:59 06:59 Intake Total 780 780 Output Total 1 0 Balance 779 780 - Medications Medications: Current Medications Acetaminophen (Tylenol 325mg Tab) 650 mg PO Q6 PRN PRN Reason: Fever >100.4 F Last Admin: 10/08/16 10:12 Dose: 650 mg Aspirin (Aspirin Chewable) 81 mg PEG DAILY [facility] Last Admin: 10/17/16 09:29 Dose: 81 mg Carvedilol (Coreg) 3.125 mg PEG BID [facility] Last Admin: 10/17/16 17:29 Dose: 3.125 mg Clopidogrel Bisulfate (Plavix) 75 mg PEG DAILY [facility] Last Admin: 10/17/16 09:29 Dose: 75 mg Enoxaparin Sodium (Lovenox) 30 mg SC DAILY [facility] Last Admin: 10/17/16 09:29 Dose: 30 mg Famotidine (Pepcid) 20 mg PEG DAILY [facility] Last Admin: 10/17/16 09:29 Dose: 20 mg Finasteride (Proscar) 5 mg PO DAILY [facility] Last Admin: 10/17/16 09:29 Dose: 5 mg Levetiracetam (Keppra) 500 mg PEG BID [facility] Last Admin: 10/17/16 17:29 Dose: 500 mg Tamsulosin HCl (Flomax) 0.8 mg PO DAILY [facility] Last Admin: 10/17/16 09:29 Dose: 0.8 mg - Labs Labs: 10/13/16 07:08 10/13/16 07:08 PT 10.6 SECONDS (9.7-12.2) 01/02/16 14:10 INR 1.0 11/24/15 14:10 APTT 25 SECONDS (21-34) 11/24/15 14:10 - Constitutional Appears: Non-toxic, No Acute Distress - Eye Exam Pupil Exam: PERRL - Respiratory Exam Respiratory Exam: Rhonchi. absent: Accessory Muscle Use, Wheezes, Stridor - Cardiovascular Exam Cardiovascular Exam: REGULAR RHYTHM, +S1, +S2. absent: Gallop, Rubs, Murmur - GI/Abdominal Exam GI & Abdominal Exam: Soft, Normal Bowel Sounds. absent: Distended, Firm, Rigid , Organomegaly - Neurological Exam Additional comments: does not retract to pain in all four extremities - Skin Skin Exam: Dry, Normal Color, Warm Assessment and Plan - Assessment and Plan (Free Text) Assessment: Anoxic encephalopathy F/U labs every Thursday Turn Q2 hours- Continue to monitor feeds through PEG @ reduced rate 60cc/hr per Nutrition recommendations suctioning trach routinely Pending detention facility placement Hypoalbuminemia Prostat 30mL 1x / day Sacral Ulcers Healing linear 5 cm fissure with area of erythema Nursing to use barrier to prevent further progression of abrasion Continue to monitor with skin checks and Q2H turning Urinary Retention Yoo DCed 10/12 - Condom cath in place Flomax 0.8 mg PO daily Proscar 5mg PO daily monitor I's and O's UTI Patient afebrile overnight- Tylenol PRN for fevers Patient completed course of Primaxin from 10/05- 10/14. Blood culture: 10/09 Coagulase negative staph positive x 1 (second culture negative) Repeat blood culture done 10/15: negative UA: 3+ leuk est, 55 WBC, 2+ blood, 2+ protein Dr Armstrong ID on board- help appreciated Acetaminophen PRN Failure to thrive Continuous Tube feeds at 60cc/hr goal per nutrition recommendations with 300cc of free water flush q8H Measure weight weekly. Continue to monitor Respiratory failure Continue Current management of trach collar and secretions- continue to suction as needed CAD (coronary artery disease) s/p cardiac stents on 06/13/15 ASA 81mg via PEG daily Coreg 3.125mg PEG BID Plavix 75mg via PEG daily Seizures Keppra 500mg PEG BID for seizure prophylaxis Lower extremity edema giving one dose lasix 40mg via PEG today Prophylactic measure Pepcid 20 mg PEG daily Lovenox 30mg SC daily SCD[facility] <Stepan,Donnell M - Last Filed: 10/18/16 17:16> Objective - Vital Signs/Intake and Output Vital Signs (last 24 hours): Temp Pulse Resp BP Pulse Ox 97.6 F 67 20 109/71 96 10/18/16 16:42 10/18/16 16:42 10/18/16 16:42 10/18/16 16:42 10/18/16 16:42 Intake and Output: 10/18/16 10/18/16 06:59 18:59 Intake Total 780 820 Output Total 0 Balance 780 820 - Medications Medications: Current Medications Acetaminophen (Tylenol 325mg Tab) 650 mg PO Q6 PRN PRN Reason: Fever >100.4 F Last Admin: 10/08/16 10:12 Dose: 650 mg Aspirin (Aspirin Chewable) 81 mg PEG DAILY [facility] Last Admin: 10/18/16 10:36 Dose: 81 mg Carvedilol (Coreg) 3.125 mg PEG BID [facility] Last Admin: 10/18/16 10:37 Dose: 3.125 mg Clopidogrel Bisulfate (Plavix) 75 mg PEG DAILY [facility] Last Admin: 10/18/16 10:36 Dose: 75 mg Enoxaparin Sodium (Lovenox) 30 mg SC DAILY [facility] Last Admin: 10/18/16 10:37 Dose: 30 mg Famotidine (Pepcid) 20 mg PEG DAILY [facility] Last Admin: 10/18/16 10:36 Dose: 20 mg Finasteride (Proscar) 5 mg PO DAILY [facility] Last Admin: 10/18/16 10:37 Dose: 5 mg Levetiracetam (Keppra) 500 mg PEG BID [facility] Last Admin: 10/18/16 10:37 Dose: 500 mg Tamsulosin HCl (Flomax) 0.8 mg PO DAILY [facility] Last Admin: 10/18/16 10:36 Dose: 0.8 mg - Labs Labs: 10/13/16 07:08 10/13/16 07:08 PT 10.6 SECONDS (9.7-12.2) 11/24/15 14:10 INR 1.0 11/24/15 14:10 APTT 25 SECONDS (21-34) 11/24/15 14:10 Attending/Attestation - Attestation I have personally seen and examined this patient.: Yes I have fully participated in the care of the patient.: Yes I have reviewed all pertinent clinical information, including history, physical exam and plan: Yes Notes (Text): 10/18/16 17:14 Patient seen and examined at bedside Discussed with nursing staff Continue current medical management GI and DVT prophylaxis I agree with above H & P and assessment/plan by the resident
[2016-10-18] MEDS: levETIRAcetam 100 mg/ml (5ml) Oral Syringe PEG SCH ×2 (10:37→18:15)
[2016-10-18] MEDS: Enoxaparin 30 mg Syringe SC SCH (10:37)
--- NOTE | 2016-10-19 04:13 | CP.PCM.PN ---
<Iram Chawla - Last Filed: 10/19/16 04:10> Subjective - Date & Time of Evaluation Date of Evaluation: 10/19/16 Time of Evaluation: 04:10 - Subjective Subjective: Patient is seen and examined at bedside. PEG tube, trach and condom catheter are in place. Increased secretions from trach site. No acute events overnight. ROS are unattainable due to anoxic brain encephalopathy. Objective - Vital Signs/Intake and Output Vital Signs (last 24 hours): Temp Pulse Resp BP Pulse Ox 97.5 F L 76 20 116/76 99 10/19/16 00:26 10/19/16 00:26 10/19/16 00:26 10/19/16 00:26 10/19/16 00:26 Intake and Output: 10/18/16 10/19/16 18:59 06:59 Intake Total 820 Output Total 300 Balance 820 -300 - Medications Medications: Current Medications Acetaminophen (Tylenol 325mg Tab) 650 mg PO Q6 PRN PRN Reason: Fever >100.4 F Last Admin: 10/08/16 10:12 Dose: 650 mg Aspirin (Aspirin Chewable) 81 mg PEG DAILY [facility] Last Admin: 10/18/16 10:36 Dose: 81 mg Carvedilol (Coreg) 3.125 mg PEG BID [facility] Last Admin: 10/18/16 18:15 Dose: 3.125 mg Clopidogrel Bisulfate (Plavix) 75 mg PEG DAILY [facility] Last Admin: 10/18/16 10:36 Dose: 75 mg Enoxaparin Sodium (Lovenox) 30 mg SC DAILY [facility] Last Admin: 10/18/16 10:37 Dose: 30 mg Famotidine (Pepcid) 20 mg PEG DAILY [facility] Last Admin: 10/18/16 10:36 Dose: 20 mg Finasteride (Proscar) 5 mg PO DAILY [facility] Last Admin: 10/18/16 10:37 Dose: 5 mg Levetiracetam (Keppra) 500 mg PEG BID [facility] Last Admin: 10/18/16 18:15 Dose: 500 mg Tamsulosin HCl (Flomax) 0.8 mg PO DAILY [facility] Last Admin: 10/18/16 10:36 Dose: 0.8 mg - Labs Labs: 10/13/16 07:08 10/13/16 07:08 PT 10.6 SECONDS (9.7-12.2) 11/24/15 14:10 INR 1.0 11/24/15 14:10 APTT 25 SECONDS (21-34) 11/24/15 14:10 - Constitutional Appears: No Acute Distress - Eye Exam Pupil Exam: PERRL - Respiratory Exam Respiratory Exam: Rales (B/L ) - Cardiovascular Exam Cardiovascular Exam: REGULAR RHYTHM, RRR, +S1, +S2 - GI/Abdominal Exam GI & Abdominal Exam: Soft. 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 Blood culture: 10/09 Coagulase negative staph positive x 1 (second culture negative) Repeat blood culture done 10/15: negative UA: 3+ leuk est, 55 WBC, 2+ blood, 2+ protein Dr Armstrong ID on board- help appreciated Acetaminophen PRN Failure to thrive Continuous Tube feeds at 60cc/hr goal per nutrition recommendations with 300cc of free water flush q8H Measure weight weekly. Continue to monitor Respiratory failure Continue Current management of trach collar and secretions- continue to suction as needed CAD (coronary artery disease) s/p cardiac stents on 06/13/15 ASA 81mg via PEG daily Coreg 3.125mg PEG BID Plavix 75mg via PEG daily Seizures Keppra 500mg PEG BID for seizure prophylaxis Lower extremity edema giving one dose lasix 40mg via PEG today Prophylactic measure Pepcid 20 mg PEG daily Lovenox 30mg SC daily [facility] <Donnell Ying M - Last Filed: 10/19/16 15:03> Objective - Vital Signs/Intake and Output Vital Signs (last 24 hours): Temp Pulse Resp BP Pulse Ox 97.9 F 68 19 106/70 100 10/19/16 08:01 10/19/16 08:01 10/19/16 08:01 10/19/16 08:01 10/19/16 08:01 Intake and Output: 10/19/16 10/19/16 06:59 18:59 Intake Total 780 720 Output Total 900 200 Balance -120 520 - Medications Medications: Current Medications Acetaminophen (Tylenol 325mg Tab) 650 mg PO Q6 PRN PRN Reason: Fever >100.4 F Last Admin: 10/08/16 10:12 Dose: 650 mg Aspirin (Aspirin Chewable) 81 mg PEG DAILY [facility] Last Admin: 10/19/16 11:38 Dose: 81 mg Carvedilol (Coreg) 3.125 mg PEG BID [facility] Last Admin: 10/19/16 11:38 Dose: 3.125 mg Clopidogrel Bisulfate (Plavix) 75 mg PEG DAILY [facility] Last Admin: 10/19/16 11:38 Dose: 75 mg Enoxaparin Sodium (Lovenox) 30 mg SC DAILY [facility] Last Admin: 10/19/16 11:37 Dose: 30 mg Famotidine (Pepcid) 20 mg PEG DAILY [facility] Last Admin: 10/19/16 11:38 Dose: 20 mg Finasteride (Proscar) 5 mg PO DAILY [facility] Last Admin: 10/19/16 11:38 Dose: 5 mg Levetiracetam (Keppra) 500 mg PEG BID [facility] Last Admin: 10/19/16 11:39 Dose: 500 mg Tamsulosin HCl (Flomax) 0.8 mg PO DAILY [facility] Last Admin: 10/19/16 11:38 Dose: 0.8 mg - Labs Labs: 10/19/16 07:21 10/19/16 07:21 PT 10.6 SECONDS (9.7-12.2) 11/24/15 14:10 INR 1.0 11/24/15 14:10 APTT 25 SECONDS (21-34) 11/24/15 14:10 Attending/Attestation - Attestation I have personally seen and examined this patient.: Yes I have fully participated in the care of the patient.: Yes I have reviewed all pertinent clinical information, including history, physical exam and plan: Yes Notes (Text): 10/19/16 15:02 Patient was seen and examined at bedside There is no change in clinical condition Continue to turn and position every 2 hours to prevent decubitus ulcers Repeat blood cultures noted and there are negative Patient is completed the course of antibiotics for UTI and bacteremia Patient has a condom catheter now and will continue the same Agree with the above history and physical and assessment/plan by the resident
[2016-10-19 07:31] LABS: BASO % 0.2 % (0.0-2.0); EOS # 0.2 K/uL (0.0-0.7); EOS % 2.4 % (0.0-4.0); HEMOGLOBIN 12.2 g/dL (12.0-18.0); LYMPH # 2.4 K/uL (1.0-4.3); LYMPH % 26.3 % (20.0-40.0); MEAN CELL VOLUME 87.4 fL (80.0-94.0); MEAN CORPUSCULAR HEMOGLOBIN 29.1 pg (27.0-31.0); MEAN CORPUSCULAR HGB CONC 33.3 g/dL (33.0-37.0); MEAN PLATELET VOLUME 8.8 fL (7.2-11.7); MONO # 0.7 K/uL (0.0-0.8); MONO % 8.1 % (0.0-10.0); NEUT # 5.7 K/uL (1.8-7.0); NRBC % 0.1 % (0.0-2.0); RBC 4.19 Mil/uL (4.40-5.90); RED CELL DISTRIBUTION WIDTH 15.2 % (11.5-14.5)
[2016-10-19 07:59] LABS: ALBUMIN 3.5 g/dL (3.5-5.0)
[2016-10-19 08:01] LABS: GFR NON-AFRICAN AMERICAN > 60
[2016-10-19 08:02] LABS: ALB/GLOB RATIO 0.8 (1.0-2.1); ALT/SGPT 53 U/L (21-72); AST/SGOT 48 U/L (17-59); BLOOD UREA NITROGEN 19 mg/dL (9-20); CALCIUM 8.4 mg/dl (8.6-10.4)
[2016-10-19] MEDS: Enoxaparin 30 mg Syringe SC SCH (11:37)
[2016-10-19] MEDS: levETIRAcetam 100 mg/ml (5ml) Oral Syringe PEG SCH ×2 (11:39→18:42)
[2016-10-20] MEDS: levETIRAcetam 100 mg/ml (5ml) Oral Syringe PEG SCH ×2 (10:45→17:12)
[2016-10-20] MEDS: Enoxaparin 30 mg Syringe SC SCH (10:45)
--- NOTE | 2016-10-20 14:10 | CP.PCM.PN ---
Subjective - Date & Time of Evaluation Date of Evaluation: 10/20/16 Time of Evaluation: 10:00 - Subjective Subjective: [email or web address] Resident on Hospitalist service Patient is seen and examined at bedside this AM. No acute changes overnight per nursing - resting in bed with trach and Peg tube in place. Condom catheter is on. ROS unobtainable secondary to anoxic encephalopathy. Objective - Vital Signs/Intake and Output Vital Signs (last 24 hours): Temp Pulse Resp BP Pulse Ox 97.9 F 71 20 102/67 97 10/20/16 08:00 10/20/16 08:00 10/20/16 08:00 10/20/16 08:00 10/20/16 08:00 Intake and Output: 10/20/16 10/20/16 06:59 18:59 Intake Total 1560 Output Total 800 Balance 760 - Medications Medications: Current Medications Acetaminophen (Tylenol 325mg Tab) 650 mg PO Q6 PRN PRN Reason: Fever >100.4 F Last Admin: 10/08/16 10:12 Dose: 650 mg Aspirin (Aspirin Chewable) 81 mg PEG DAILY [facility] Last Admin: 10/20/16 10:44 Dose: 81 mg Carvedilol (Coreg) 3.125 mg PEG BID [facility] Last Admin: 10/20/16 10:44 Dose: 3.125 mg Clopidogrel Bisulfate (Plavix) 75 mg PEG DAILY [facility] Last Admin: 10/20/16 10:45 Dose: 75 mg Enoxaparin Sodium (Lovenox) 30 mg SC DAILY [facility] Last Admin: 10/20/16 10:45 Dose: 30 mg Famotidine (Pepcid) 20 mg PEG DAILY [facility] Last Admin: 10/20/16 10:45 Dose: 20 mg Finasteride (Proscar) 5 mg PO DAILY [facility] Last Admin: 10/20/16 10:45 Dose: 5 mg Levetiracetam (Keppra) 500 mg PEG BID [facility] Last Admin: 10/20/16 10:45 Dose: 500 mg Tamsulosin HCl (Flomax) 0.8 mg PO DAILY [facility] Last Admin: 10/20/16 10:44 Dose: 0.8 mg - Labs Labs: 10/19/16 07:21 10/19/16 07:21 PT 10.6 SECONDS (9.7-12.2) 11/24/15 14:10 INR 1.0 11/24/15 14:10 APTT 25 SECONDS (21-34) 11/24/15 14:10 - Constitutional Appears: Chronically Ill - Head Exam Head Exam: NORMAL INSPECTION, NORMOCEPHALIC - Eye Exam Eye Exam: PERRL - ENT Exam ENT Exam: Mucous Membranes Moist, Normal Oropharynx - Neck Exam Additional comments: trach collar in place, c/d/i - Respiratory Exam Respiratory Exam: NORMAL BREATHING PATTERN. absent: Wheezes - Cardiovascular Exam Cardiovascular Exam: +S1, +S2 - GI/Abdominal Exam GI & Abdominal Exam: Soft, Normal Bowel Sounds Additional comments: PEG site c/d/i - Exam Additional comments: condom catheter in place - Neurological Exam Neurological Exam: absent: Awake - Skin Skin Exam: Normal Color Assessment and Plan - Assessment and Plan (Free Text) Assessment: Anoxic encephalopathy F/U labs every Thursday Turn Q2 hours- Continue to monitor feeds through PEG @ reduced rate 60cc/hr per Nutrition recommendations suctioning trach routinely Pending assisted facility placement Hypoalbuminemia Prostat 30mL 1x / day Sacral Ulcers Healing linear 5 cm fissure with area of erythema Nursing to use barrier to prevent further progression of abrasion Continue to monitor with skin checks and Q2H turning Urinary Retention Yoo DCed 10/12 - Condom cath now being used Flomax 0.8 mg PO daily Proscar 5mg PO daily monitor I's and O's UTI Patient afebrile overnight- Tylenol PRN for fevers Patient completed course of Primaxin from 10/05- 10/14. Blood culture: 10/09 Coagulase negative staph positive x 1 (second culture negative) F/U repeat blood culture negative 10/15 UA: 3+ leuk est, 55 WBC, 2+ blood, 2+ protein Dr Armstrong ID on board- help appreciated Acetaminophen PRN Failure to thrive Continuous Tube feeds at 60cc/hr goal per nutrition recommendations with 300cc of free water flush q8H Measure weight weekly. Continue to monitor Respiratory failure Continue Current management of trach collar and secretions- continue to suction as needed CAD (coronary artery disease) s/p cardiac stents on 06/13/15 ASA 81mg via PEG daily - renewed 10/20 Coreg 3.125mg PEG BID Plavix 75mg via PEG daily Seizures Keppra 500mg PEG BID for seizure prophylaxis Lower extremity edema giving one dose lasix 40mg via PEG today Prophylactic measure Pepcid 20 mg PEG daily Lovenox 30mg SC daily SCDs
[2016-10-21] MEDS: Enoxaparin 30 mg Syringe SC SCH (10:30)
[2016-10-21] MEDS: levETIRAcetam 100 mg/ml (5ml) Oral Syringe PEG SCH ×2 (10:30→17:47)
--- NOTE | 2016-10-21 11:44 | CP.PCM.PN ---
<Merrick Heck - Last Filed: 10/21/16 11:41> Subjective - Date & Time of Evaluation Date of Evaluation: 10/21/16 Time of Evaluation: 09:00 - Subjective Subjective: Pgy[facility] resident on hospitalist service Patient seen and examined at bedside this AM. Resting comfortably in bed - PEG, Trach and Baker in place. No acute events overnight per nursing. Objective - Vital Signs/Intake and Output Vital Signs (last 24 hours): Temp Pulse Resp BP Pulse Ox 98.1 F 88 20 112/76 97 10/21/16 08:00 10/21/16 08:02 10/21/16 08:00 10/21/16 08:00 10/21/16 08:00 Intake and Output: 10/21/16 10/21/16 06:59 18:59 Intake Total 1560 Output Total 1050 Balance 510 - Medications Medications: Current Medications Acetaminophen (Tylenol 325mg Tab) 650 mg PO Q6 PRN PRN Reason: Fever >100.4 F Last Admin: 10/08/16 10:12 Dose: 650 mg Aspirin (Aspirin Chewable) 81 mg PEG DAILY [facility] Last Admin: 10/21/16 10:32 Dose: 81 mg Bethanechol Chloride (Urecholine) 10 mg PO TID [facility] Last Admin: 10/21/16 10:30 Dose: 10 mg Carvedilol (Coreg) 3.125 mg PEG BID [facility] Last Admin: 10/21/16 10:30 Dose: 3.125 mg Clopidogrel Bisulfate (Plavix) 75 mg PEG DAILY [facility] Last Admin: 10/21/16 10:29 Dose: 75 mg Enoxaparin Sodium (Lovenox) 30 mg SC DAILY [facility] Last Admin: 10/21/16 10:30 Dose: 30 mg Famotidine (Pepcid) 20 mg PEG DAILY [facility] Last Admin: 10/21/16 10:29 Dose: 20 mg Finasteride (Proscar) 5 mg PO DAILY [facility] Last Admin: 10/21/16 10:30 Dose: 5 mg Levetiracetam (Keppra) 500 mg PEG BID [facility] Last Admin: 10/21/16 10:30 Dose: 500 mg Tamsulosin HCl (Flomax) 0.8 mg PO DAILY [facility] Last Admin: 10/21/16 10:30 Dose: 0.8 mg - Labs Labs: 10/19/16 07:21 10/19/16 07:21 PT 10.6 SECONDS (9.7-12.2) 11/24/15 14:10 INR 1.0 11/24/15 14:10 APTT 25 SECONDS (21-34) 11/24/15 14:10 - Constitutional Appears: Non-toxic, No Acute Distress, Chronically Ill - Eye Exam Eye Exam: Normal appearance, PERRL - ENT Exam ENT Exam: Mucous Membranes Moist, Normal Oropharynx - Respiratory Exam Respiratory Exam: Clear to Ausculation Bilateral, NORMAL BREATHING PATTERN. absent: Wheezes - Cardiovascular Exam Cardiovascular Exam: REGULAR RHYTHM, +S1, +S2 - GI/Abdominal Exam GI & Abdominal Exam: Soft, Normal Bowel Sounds. absent: Distended Additional comments: PEG site c/d/i - Extremities Exam Extremities Exam: Normal Capillary Refill - Neurological Exam Neurological Exam: Alert, Awake, Oriented x3 - Psychiatric Exam Psychiatric exam: Normal Affect, Normal Mood - Skin Skin Exam: Normal Color Assessment and Plan - Assessment and Plan (Free Text) Assessment: Anoxic encephalopathy F/U labs every Thursday Turn Q2 hours- Continue to monitor feeds through PEG @ reduced rate 60cc/hr per Nutrition recommendations suctioning trach routinely Pending long-term facility placement Hypoalbuminemia Prostat 30mL 1x / day Sacral Ulcers Healing linear 5 cm fissure with area of erythema Nursing to use barrier to prevent further progression of abrasion Continue to monitor with skin checks and Q2H turning Urinary Retention 577cc urine retained 10/20 Baker placed 10/20, will attempt bladder training and removal in 24 hours Flomax 0.8 mg PO daily Proscar 5mg PO daily monitor I's and O's Failure to thrive Continuous Tube feeds at 60cc/hr goal per nutrition recommendations with 300cc of free water flush q8H Measure weight weekly. Continue to monitor Respiratory failure Continue Current management of trach collar and secretions- continue to suction as needed CAD (coronary artery disease) s/p cardiac stents on 06/13/15 ASA 81mg via PEG daily - renewed 10/20 Coreg 3.125mg PEG BID Plavix 75mg via PEG daily Seizures Keppra 500mg PEG BID for seizure prophylaxis Lower extremity edema giving one dose lasix 40mg via PEG today Prophylactic measure Pepcid 20 mg PEG daily Lovenox 30mg SC daily [facility] <Nathaniel Beth - Last Filed: 10/21/16 21:20> Objective - Vital Signs/Intake and Output Vital Signs (last 24 hours): Temp Pulse Resp BP Pulse Ox 98.1 F 66 20 122/83 98 10/21/16 16:00 10/21/16 16:00 10/21/16 16:00 10/21/16 16:00 10/21/16 16:00 Intake and Output: 10/21/16 10/22/16 18:59 06:59 Intake Total 780 Output Total 225 Balance 555 - Medications Medications: Current Medications Acetaminophen (Tylenol 325mg Tab) 650 mg PO Q6 PRN PRN Reason: Fever >100.4 F Last Admin: 10/08/16 10:12 Dose: 650 mg Aspirin (Aspirin Chewable) 81 mg PEG DAILY [facility] Last Admin: 10/21/16 10:32 Dose: 81 mg Bethanechol Chloride (Urecholine) 10 mg PO TID [facility] Last Admin: 10/21/16 17:47 Dose: 10 mg Carvedilol (Coreg) 3.125 mg PEG BID [facility] Last Admin: 10/21/16 17:47 Dose: 3.125 mg Clopidogrel Bisulfate (Plavix) 75 mg PEG DAILY [facility] Last Admin: 10/21/16 10:29 Dose: 75 mg Enoxaparin Sodium (Lovenox) 30 mg SC DAILY [facility] Last Admin: 10/21/16 10:30 Dose: 30 mg Famotidine (Pepcid) 20 mg PEG DAILY [facility] Last Admin: 10/21/16 10:29 Dose: 20 mg Finasteride (Proscar) 5 mg PO DAILY [facility] Last Admin: 10/21/16 10:30 Dose: 5 mg Levetiracetam (Keppra) 500 mg PEG BID [facility] Last Admin: 10/21/16 17:47 Dose: 500 mg Tamsulosin HCl (Flomax) 0.8 mg PO DAILY [facility] Last Admin: 10/21/16 10:30 Dose: 0.8 mg - Labs Labs: 10/19/16 07:21 10/19/16 07:21 PT 10.6 SECONDS (9.7-12.2) 11/24/15 14:10 INR 1.0 11/24/15 14:10 APTT 25 SECONDS (21-34) 11/24/15 14:10 Attending/Attestation - Attestation I have personally seen and examined this patient.: Yes I have fully participated in the care of the patient.: Yes I have reviewed all pertinent clinical information, including history, physical exam and plan: Yes Notes (Text): Patient admitted s/p cardiac arrest, anoxic encephalopathy, prolonged hospital stay due to inability to find placement; Again with urinary retention yesterday despite being on flomax and finasteride; possible detrusor muscle inactivity; baker re-inserted and started on bethanecol ; will try bladder training tomorrow before voiding trial; Sacral decubitus ulcer resolved per my exam; should continue protective ointment and frequent repositioning; Hypoalbuminemia mildly improved on prostat supplement bid; continue; Hypernatremia resolved; patient on free H20 flushes 300 cc q8h; Continue coreg, ASA, plavix for CAD, systolic dysfunction; 10/21/16 21:15
--- NOTE | 2016-10-22 09:13 | CP.PCM.PN ---
Subjective - Date & Time of Evaluation Date of Evaluation: 10/22/16 Time of Evaluation: 09:30 - Subjective Subjective: Dr. Beth's progress note: Patient seen and evaluated at bedside. He is resting in bed opening his eyes. He does not look at me but does move his eyes around. No acute events overnight per nursing staff. Objective - Vital Signs/Intake and Output Vital Signs (last 24 hours): Temp Pulse Resp BP Pulse Ox 98.8 F 77 20 104/62 100 10/22/16 08:44 10/22/16 08:44 10/22/16 08:44 10/22/16 08:44 10/22/16 08:44 Intake and Output: 10/22/16 10/22/16 06:59 18:59 Intake Total 780 Output Total 700 Balance 80 - Medications Medications: Current Medications Acetaminophen (Tylenol 325mg Tab) 650 mg PO Q6 PRN PRN Reason: Fever >100.4 F Last Admin: 10/08/16 10:12 Dose: 650 mg Aspirin (Aspirin Chewable) 81 mg PEG DAILY [facility] Last Admin: 10/21/16 10:32 Dose: 81 mg Bethanechol Chloride (Urecholine) 10 mg PO TID [facility] Last Admin: 10/21/16 17:47 Dose: 10 mg Carvedilol (Coreg) 3.125 mg PEG BID [facility] Last Admin: 10/21/16 17:47 Dose: 3.125 mg Clopidogrel Bisulfate (Plavix) 75 mg PEG DAILY [facility] Last Admin: 10/21/16 10:29 Dose: 75 mg Enoxaparin Sodium (Lovenox) 30 mg SC DAILY [facility] Last Admin: 10/21/16 10:30 Dose: 30 mg Famotidine (Pepcid) 20 mg PEG DAILY [facility] Last Admin: 10/21/16 10:29 Dose: 20 mg Finasteride (Proscar) 5 mg PO DAILY [facility] Last Admin: 10/21/16 10:30 Dose: 5 mg Levetiracetam (Keppra) 500 mg PEG BID [facility] Last Admin: 10/21/16 17:47 Dose: 500 mg Tamsulosin HCl (Flomax) 0.8 mg PO DAILY [facility] Last Admin: 10/21/16 10:30 Dose: 0.8 mg - Labs Labs: 10/19/16 07:21 10/19/16 07:21 PT 10.6 SECONDS (9.7-12.2) 11/24/15 14:10 INR 1.0 11/24/15 14:10 APTT 25 SECONDS (21-34) 11/24/15 14:10 - Constitutional Appears: Chronically Ill - Head Exam Head Exam: NORMOCEPHALIC - Eye Exam Eye Exam: Normal appearance - ENT Exam Additional comments: Trach noted with redness, purulent discharge or signs of infection - Neck Exam Additional comments: Trach collar in place - Respiratory Exam Respiratory Exam: Clear to Ausculation Bilateral. absent: Rales, Rhonchi, Wheezes - Cardiovascular Exam Cardiovascular Exam: REGULAR RHYTHM, RRR, +S1, +S2. absent: Gallop, Rubs - GI/Abdominal Exam GI & Abdominal Exam: Normal Bowel Sounds. absent: Soft Additional comments: Baker bag is in place, urine is clear - Extremities Exam Extremities Exam: Normal Inspection. absent: Pedal Edema - Skin Skin Exam: Diaphoretic Assessment and Plan - Assessment and Plan (Free Text) Assessment: Anoxic encephalopathy 10/22:NO acute events overnight, no signs of seizures, continue with current management. Previous note: F/U labs every Thursday Turn Q2 hours- Continue to monitor feeds through PEG @ reduced rate 60cc/hr per Nutrition recommendations suctioning trach routinely Pending [facility] facility placement Hypoalbuminemia Prostat 30mL 1x / day Sacral Ulcers 10/22: Previous note: Healing linear 5 cm fissure with area of erythema Nursing to use barrier to prevent further progression of abrasion Continue to monitor with skin checks and Q2H turning Urinary Retention 10/22 Had the nurse clamp the baker for some bladder training today, will try to remove the baker cather tomorrow. Previous note 577cc urine retained 10/20 Baker placed 10/20, will attempt bladder training and removal in 24 hours Flomax 0.8 mg PO daily Proscar 5mg PO daily monitor I's and O's Failure to thrive 10/[address], will continue with current management Previous note: Continuous Tube feeds at 60cc/hr goal per nutrition recommendations with 300cc of free water flush q8H Measure weight weekly. Continue to monitor Respiratory failure 10/22: Trach collar in place, with some secretions, will suction when needed, continue with current management. Previous note Continue Current management of trach collar and secretions- continue to suction as needed CAD (coronary artery disease) s/p cardiac stents on 06/13/15 ASA 81mg via PEG daily - renewed 10/20 Coreg 3.125mg PEG BID Plavix 75mg via PEG daily Seizures Keppra 500mg PEG BID for seizure prophylaxis Lower extremity edema giving one dose lasix 40mg via PEG today Prophylactic measure Pepcid 20 mg PEG daily Lovenox 30mg SC daily [facility]
[2016-10-22] MEDS: Enoxaparin 30 mg Syringe SC SCH (10:47)
[2016-10-22] MEDS: levETIRAcetam 100 mg/ml (5ml) Oral Syringe PEG SCH ×2 (10:48→17:01)
[2016-10-23] MEDS: Enoxaparin 30 mg Syringe SC SCH (10:37)
[2016-10-23] MEDS: levETIRAcetam 100 mg/ml (5ml) Oral Syringe PEG SCH ×2 (10:38→17:26)
--- NOTE | 2016-10-23 11:54 | CP.PCM.PN ---
<Joel Lin H - Last Filed: 10/23/16 19:27> Subjective - Date & Time of Evaluation Date of Evaluation: 10/23/16 Time of Evaluation: 09:35 - Subjective Subjective: Dr. [place] service, progress note: Patient seen and evaluted in room. Patient is non verbal, resting comfortably in bed. Objective - Vital Signs/Intake and Output Vital Signs (last 24 hours): Temp Pulse Resp BP Pulse Ox 98.9 F 93 H 18 143/89 100 10/23/16 08:00 10/23/16 09:00 10/23/16 08:00 10/23/16 08:00 10/23/16 08:00 Intake and Output: 10/23/16 10/23/16 06:59 18:59 Intake Total 780 Output Total 900 Balance -120 - Medications Medications: Current Medications Acetaminophen (Tylenol 325mg Tab) 650 mg PO Q6 PRN PRN Reason: Fever >100.4 F Last Admin: 10/08/16 10:12 Dose: 650 mg Aspirin (Aspirin Chewable) 81 mg PEG DAILY [facility] Last Admin: 10/23/16 10:34 Dose: 81 mg Bethanechol Chloride (Urecholine) 10 mg PO TID [facility] Last Admin: 10/23/16 10:34 Dose: 10 mg Carvedilol (Coreg) 3.125 mg PEG BID [facility] Last Admin: 10/23/16 10:34 Dose: 3.125 mg Clopidogrel Bisulfate (Plavix) 75 mg PEG DAILY [facility] Last Admin: 10/23/16 10:34 Dose: 75 mg Enoxaparin Sodium (Lovenox) 30 mg SC DAILY [facility] Last Admin: 10/23/16 10:37 Dose: 30 mg Famotidine (Pepcid) 20 mg PEG DAILY [facility] Last Admin: 10/23/16 10:34 Dose: 20 mg Finasteride (Proscar) 5 mg PO DAILY [facility] Last Admin: 10/23/16 10:34 Dose: 5 mg Levetiracetam (Keppra) 500 mg PEG BID [facility] Last Admin: 10/23/16 10:38 Dose: 500 mg Tamsulosin HCl (Flomax) 0.8 mg PO DAILY [facility] Last Admin: 10/23/16 10:34 Dose: 0.8 mg - Labs Labs: 10/19/16 07:21 10/19/16 07:21 PT 10.6 SECONDS (9.7-12.2) 11/24/15 14:10 INR 1.0 11/24/15 14:10 APTT 25 SECONDS (21-34) 11/24/15 14:10 - Constitutional Appears: Non-toxic, No Acute Distress, Chronically Ill - Head Exam Head Exam: ATRAUMATIC, NORMAL INSPECTION - Eye Exam Eye Exam: Normal appearance, PERRL - ENT Exam ENT Exam: Normal Exam - Neck Exam Additional comments: Trach collar in place with some secretions, no signs of infection, no reddness, purulent discharge. - Respiratory Exam Respiratory Exam: Clear to Ausculation Bilateral. absent: Rales, Rhonchi, Wheezes - Cardiovascular Exam Cardiovascular Exam: REGULAR RHYTHM, RRR, +S1, +S2. absent: Gallop, Rubs - GI/Abdominal Exam GI & Abdominal Exam: Soft, Normal Bowel Sounds. absent: Distended, Guarding, Tenderness - Extremities Exam Extremities Exam: Normal Inspection - Back Exam Back Exam: NORMAL INSPECTION - Neurological Exam Neurological Exam: Alert - Psychiatric Exam Psychiatric exam: Normal Affect, Normal Mood - Skin Skin Exam: Normal Color, Warm Assessment and Plan - Assessment and Plan (Free Text) Assessment: Assessment: Anoxic encephalopathy 10/23: No acute events overnight, no active seizures, continue with current management. 10/22:NO acute events overnight, no signs of seizures, continue with current management. Previous note: F/U labs every Thursday Turn Q2 hours- Continue to monitor feeds through PEG @ reduced rate 60cc/hr per Nutrition recommendations suctioning trach routinely Pending terminal block [facility] facility placement Hypoalbuminemia Prostat 30mL 1x / day Sacral Ulcers 10/22: Previous note: Healing linear 5 cm fissure with area of erythema Nursing to use barrier to prevent further progression of abrasion Continue to monitor with skin checks and Q2H turning Urinary Retention 10/23: Will attempt to remove baker tomorrow. 10/22 Had the nurse clamp the baker for some bladder training today, will try to remove the baker cather tomorrow. Previous note 577cc urine retained 10/20 Baker placed 10/20, will attempt bladder training and removal in 24 hours Flomax 0.8 mg PO daily Proscar 5mg PO daily monitor I's and O's Failure to thrive 10/[address], will continue with current management Previous note: Continuous Tube feeds at 60cc/hr goal per nutrition recommendations with 300cc of free water flush q8H Measure weight weekly. Continue to monitor Respiratory failure 10/22: Trach collar in place, with some secretions, will suction when needed, continue with current management. Previous note Continue Current management of trach collar and secretions- continue to suction as needed CAD (coronary artery disease) s/p cardiac stents on 06/13/15 ASA 81mg via PEG daily - renewed 10/20 Coreg 3.125mg PEG BID Plavix 75mg via PEG daily Seizures Keppra 500mg PEG BID for seizure prophylaxis Lower extremity edema giving one dose lasix 40mg via PEG today Prophylactic measure Pepcid 20 mg PEG daily Lovenox 30mg SC daily [facility] <Nathaniel Beth - Last Filed: 10/24/16 08:51> Objective - Vital Signs/Intake and Output Vital Signs (last 24 hours): Temp Pulse Resp BP Pulse Ox 98.3 F 86 20 116/80 99 10/24/16 08:01 10/24/16 08:01 10/24/16 08:01 10/24/16 08:01 10/24/16 08:01 Intake and Output: 10/24/16 10/24/16 06:59 18:59 Intake Total 1560 Output Total 500 Balance 1060 - Medications Medications: Current Medications Acetaminophen (Tylenol 325mg Tab) 650 mg PO Q6 PRN PRN Reason: Fever >100.4 F Last Admin: 10/08/16 10:12 Dose: 650 mg Aspirin (Aspirin Chewable) 81 mg PEG DAILY [facility] Last Admin: 10/23/16 10:34 Dose: 81 mg Bethanechol Chloride (Urecholine) 10 mg PO TID [facility] Last Admin: 10/23/16 17:26 Dose: 10 mg Carvedilol (Coreg) 3.125 mg PEG BID [facility] Last Admin: 10/23/16 17:26 Dose: 3.125 mg Clopidogrel Bisulfate (Plavix) 75 mg PEG DAILY [facility] Last Admin: 10/23/16 10:34 Dose: 75 mg Enoxaparin Sodium (Lovenox) 30 mg SC DAILY [facility] Last Admin: 10/23/16 10:37 Dose: 30 mg Famotidine (Pepcid) 20 mg PEG DAILY [facility] Last Admin: 10/23/16 10:34 Dose: 20 mg Finasteride (Proscar) 5 mg PO DAILY [facility] Last Admin: 10/23/16 10:34 Dose: 5 mg Levetiracetam (Keppra) 500 mg PEG BID [facility] Last Admin: 10/23/16 17:26 Dose: 500 mg Tamsulosin HCl (Flomax) 0.8 mg PO DAILY [facility] Last Admin: 10/23/16 10:34 Dose: 0.8 mg - Labs Labs: 10/19/16 07:21 10/19/16 07:21 PT 10.6 SECONDS (9.7-12.2) 11/24/15 14:10 INR 1.0 11/24/15 14:10 APTT 25 SECONDS (21-34) 11/24/15 14:10 Attending/Attestation - Attestation I have personally seen and examined this patient.: Yes I have fully participated in the care of the patient.: Yes I have reviewed all pertinent clinical information, including history, physical exam and plan: Yes Notes (Text): Patient admitted s/p cardiac arrest, ensuing anoxic encephalopathy, s/p trach/ PEG, prolonged hospital course due to inability to find placement; Active issues are urinary retention; had already been on flomax 0.8 mg daily and finasteride; bethanecol started for possible neurogenic bladder; will again attempt voiding trial tomorrow; Hypernatremia resolved; Sacral decubitus ulcer healed; Hypoalbuminemia persists; on prostat supplement; CAD s/p WILLIE; on coreg, ASA/plavix, continue.
[2016-10-24] MEDS: Enoxaparin 30 mg Syringe SC SCH (10:38)
[2016-10-24] MEDS: levETIRAcetam 100 mg/ml (5ml) Oral Syringe PEG SCH ×2 (10:38→17:00)
--- NOTE | 2016-10-24 18:45 | CP.PCM.PN ---
<UmangMerrick Alanis - Last Filed: 10/24/16 18:39> Subjective - Date & Time of Evaluation Date of Evaluation: 10/24/16 Time of Evaluation: 10:15 - Subjective Subjective: Pgy3 resident on hospitalist service Patient seen and examined at bedside this AM. Baker still in place at time of exam. Per nursing, overnight family member mentioned hardened abdomen. On exam, abdomen soft with normal bowel sounds. Per clinical partner he had a bowel movement this AM . PEG and trach in place and clean. Baker to be removed today. No other events at this time. Objective - Vital Signs/Intake and Output Vital Signs (last 24 hours): Temp Pulse Resp BP Pulse Ox 98.0 F 70 20 107/78 96 10/24/16 16:33 10/24/16 16:33 10/24/16 16:33 10/24/16 16:33 10/24/16 16:33 Intake and Output: 10/24/16 10/24/16 06:59 18:59 Intake Total 1560 780 Output Total 500 675 Balance 1060 105 - Medications Medications: Current Medications Acetaminophen (Tylenol 325mg Tab) 650 mg PO Q6 PRN PRN Reason: Fever >100.4 F Last Admin: 10/08/16 10:12 Dose: 650 mg Aspirin (Aspirin Chewable) 81 mg PEG DAILY [facility] Last Admin: 10/24/16 10:38 Dose: 81 mg Bethanechol Chloride (Urecholine) 10 mg PO TID [facility] Last Admin: 10/24/16 17:00 Dose: 10 mg Carvedilol (Coreg) 3.125 mg PEG BID [facility] Last Admin: 10/24/16 17:00 Dose: 3.125 mg Clopidogrel Bisulfate (Plavix) 75 mg PEG DAILY [facility] Last Admin: 10/24/16 10:38 Dose: 75 mg Enoxaparin Sodium (Lovenox) 30 mg SC DAILY [facility] Last Admin: 10/24/16 10:38 Dose: 30 mg Famotidine (Pepcid) 20 mg PEG DAILY [facility] Last Admin: 10/24/16 10:38 Dose: 20 mg Finasteride (Proscar) 5 mg PO DAILY [facility] Last Admin: 10/24/16 10:40 Dose: 5 mg Levetiracetam (Keppra) 500 mg PEG BID [facility] Last Admin: 10/24/16 17:00 Dose: 500 mg Tamsulosin HCl (Flomax) 0.8 mg PO DAILY [facility] Last Admin: 10/24/16 10:38 Dose: 0.8 mg - Labs Labs: 10/19/16 07:21 10/19/16 07:21 PT 10.6 SECONDS (9.7-12.2) 11/24/15 14:10 INR 1.0 11/24/15 14:10 APTT 25 SECONDS (21-34) 11/24/15 14:10 - Constitutional Appears: Chronically Ill - Head Exam Head Exam: NORMAL INSPECTION, NORMOCEPHALIC - Eye Exam Eye Exam: Normal appearance, PERRL - ENT Exam ENT Exam: Mucous Membranes Moist - Respiratory Exam Respiratory Exam: Clear to Ausculation Bilateral, NORMAL BREATHING PATTERN - Cardiovascular Exam Cardiovascular Exam: +S1, +S2 - GI/Abdominal Exam GI & Abdominal Exam: Soft, Normal Bowel Sounds Additional comments: PEG site c/d/i - Neurological Exam Neurological Exam: Awake - Skin Skin Exam: Dry, Warm Assessment and Plan - Assessment and Plan (Free Text) Assessment: Anoxic encephalopathy 10/24: no acute events overnight - continue with current management Previous note: F/U labs every Thursday Turn Q2 hours- Continue to monitor feeds through PEG @ reduced rate 60cc/hr per Nutrition recommendations suctioning trach routinely Pending carpet inspector facility placement Hypoalbuminemia Prostat 30mL 1x / day Sacral Ulcers Previous note: Healing linear 5 cm fissure with area of erythema Nursing to use barrier to prevent further progression of abrasion Continue to monitor with skin checks and Q2H turning Urinary Retention 10/24: baker removed today - continue to monitor for urinary retention Previous note 577cc urine retained 10/20 Baker placed 10/20, will attempt bladder training and removal in 24 hours Flomax 0.8 mg PO daily Proscar 5mg PO daily monitor I's and O's Failure to thrive 10/24: Tube feedings in place, will continue with current management Previous note: Continuous Tube feeds at 60cc/hr goal per nutrition recommendations with 300cc of free water flush q8H Measure weight weekly. Continue to monitor Respiratory failure 10/24: Trach collar in place, with some secretions, will suction when needed, continue with current management. Previous note Continue Current management of trach collar and secretions- continue to suction as needed CAD (coronary artery disease) s/p cardiac stents on 06/13/15 ASA 81mg via PEG daily - renewed 10/20 Coreg 3.125mg PEG BID Plavix 75mg via PEG daily Seizures Keppra 500mg PEG BID for seizure prophylaxis Lower extremity edema giving one dose lasix 40mg via PEG today Prophylactic measure Pepcid 20 mg PEG daily Lovenox 30mg SC daily [facility] <Nathaniel Beth - Last Filed: 10/25/16 09:51> Objective - Vital Signs/Intake and Output Vital Signs (last 24 hours): Temp Pulse Resp BP Pulse Ox 98.9 F 88 20 122/77 100 10/25/16 08:09 10/25/16 08:09 10/25/16 08:09 10/25/16 08:09 10/25/16 08:09 Intake and Output: 10/25/16 10/25/16 06:59 18:59 Intake Total 780 Output Total 1050 Balance -270 - Medications Medications: Current Medications Acetaminophen (Tylenol 325mg Tab) 650 mg PO Q6 PRN PRN Reason: Fever >100.4 F Last Admin: 10/08/16 10:12 Dose: 650 mg Aspirin (Aspirin Chewable) 81 mg PEG DAILY [facility] Last Admin: 10/25/16 09:10 Dose: 81 mg Bethanechol Chloride (Urecholine) 10 mg PO TID [facility] Last Admin: 10/25/16 09:10 Dose: 10 mg Carvedilol (Coreg) 3.125 mg PEG BID [facility] Last Admin: 10/25/16 09:10 Dose: 3.125 mg Clopidogrel Bisulfate (Plavix) 75 mg PEG DAILY [facility] Last Admin: 10/25/16 09:10 Dose: 75 mg Enoxaparin Sodium (Lovenox) 30 mg SC DAILY [facility] Last Admin: 10/24/16 10:38 Dose: 30 mg Famotidine (Pepcid) 20 mg PEG DAILY [facility] Last Admin: 10/25/16 09:10 Dose: 20 mg Finasteride (Proscar) 5 mg PO DAILY [facility] Last Admin: 10/25/16 09:10 Dose: 5 mg Levetiracetam (Keppra) 500 mg PEG BID [facility] Last Admin: 10/25/16 09:10 Dose: 500 mg Tamsulosin HCl (Flomax) 0.8 mg PO DAILY [facility] Last Admin: 10/25/16 09:10 Dose: 0.8 mg - Labs Labs: 10/19/16 07:21 10/19/16 07:21 PT 10.6 SECONDS (9.7-12.2) 11/24/15 14:10 INR 1.0 11/24/15 14:10 APTT 25 SECONDS (21-34) 11/24/15 14:10 Attending/Attestation - Attestation I have personally seen and examined this patient.: Yes I have fully participated in the care of the patient.: Yes I have reviewed all pertinent clinical information, including history, physical exam and plan: Yes Notes (Text): Patient admitted with cardiac arrest, ensuing anoxic encephalopathy, prolonged hospital course due to inability to find placement; Active issues: Urinary retention (with recurrent UTI, last treated with abx finishing on 10/14) ; patient started on bethanecol earlier this week (already on flomax and finasteride) for possible neurogenic bladder; Baker removed today; bladder scan after ~2.5 hrs showing 192 cc; will repeat and re-assess need for baker; Hypernatremia resolved, currently on adequate level of hydration; Sacral decubitus ulcer resolved, continuing with protective ointment and frequent re-positioning; -continue coreg, ASA/plavix for systolic dysfunction, CAD s/p WILLIE
--- NOTE | 2016-10-25 04:24 | CP.PCM.PN ---
<Michel Ferris - Last Filed: 10/25/16 06:30> Subjective - Date & Time of Evaluation Date of Evaluation: 10/25/16 Time of Evaluation: 04:22 - Subjective Subjective: PGY - 1 note for Hospitalist service Pt seen and examined at bedside. Pt is non-verbal, resting in bed comfortable. Baker out, condom catheter on, voiding well. Objective - Vital Signs/Intake and Output Vital Signs (last 24 hours): Temp Pulse Resp BP Pulse Ox 97.6 F 79 20 123/83 98 10/24/16 23:40 10/25/16 01:07 10/24/16 23:40 10/24/16 23:40 10/24/16 23:40 Intake and Output: 10/24/16 10/25/16 18:59 06:59 Intake Total 780 Output Total 675 500 Balance 105 -500 - Medications Medications: Current Medications Acetaminophen (Tylenol 325mg Tab) 650 mg PO Q6 PRN PRN Reason: Fever >100.4 F Last Admin: 10/08/16 10:12 Dose: 650 mg Aspirin (Aspirin Chewable) 81 mg PEG DAILY [facility] Last Admin: 10/24/16 10:38 Dose: 81 mg Bethanechol Chloride (Urecholine) 10 mg PO TID [facility] Last Admin: 10/24/16 17:00 Dose: 10 mg Carvedilol (Coreg) 3.125 mg PEG BID [facility] Last Admin: 10/24/16 17:00 Dose: 3.125 mg Clopidogrel Bisulfate (Plavix) 75 mg PEG DAILY [facility] Last Admin: 10/24/16 10:38 Dose: 75 mg Enoxaparin Sodium (Lovenox) 30 mg SC DAILY [facility] Last Admin: 10/24/16 10:38 Dose: 30 mg Famotidine (Pepcid) 20 mg PEG DAILY [facility] Last Admin: 10/24/16 10:38 Dose: 20 mg Finasteride (Proscar) 5 mg PO DAILY [facility] Last Admin: 10/24/16 10:40 Dose: 5 mg Levetiracetam (Keppra) 500 mg PEG BID [facility] Last Admin: 10/24/16 17:00 Dose: 500 mg Tamsulosin HCl (Flomax) 0.8 mg PO DAILY [facility] Last Admin: 10/24/16 10:38 Dose: 0.8 mg - Labs Labs: 10/19/16 07:21 11/27/16 07:21 PT 10.6 SECONDS (9.7-12.2) 11/24/15 14:10 INR 1.0 11/24/15 14:10 APTT 25 SECONDS (21-34) 11/24/15 14:10 - Constitutional Appears: Non-toxic, No Acute Distress, Chronically Ill - Head Exam Head Exam: ATRAUMATIC, NORMOCEPHALIC - Eye Exam Eye Exam: Normal appearance Pupil Exam: PERRL - ENT Exam ENT Exam: Mucous Membranes Moist - Neck Exam Additional comments: trach collar in place with some secretions, no signs of infection, no redness, purulent discharge. - Respiratory Exam Respiratory Exam: Clear to Ausculation Bilateral, NORMAL BREATHING PATTERN - Cardiovascular Exam Cardiovascular Exam: REGULAR RHYTHM, +S1, +S2 - GI/Abdominal Exam GI & Abdominal Exam: Soft, Normal Bowel Sounds - Skin Skin Exam: Dry, Warm Assessment and Plan - Assessment and Plan (Free Text) Assessment: Anoxic encephalopathy 10/25: no acute events overnight - continue with current management Previous note: F/U labs every Thursday Turn Q2 hours- Continue to monitor feeds through PEG @ reduced rate 60cc/hr per Nutrition recommendations suctioning trach routinely Pending assisted facility placement Hypoalbuminemia Prostat 30mL 1x / day Sacral Ulcers Previous note: Healing linear 5 cm fissure with area of erythema Nursing to use barrier to prevent further progression of abrasion Continue to monitor with skin checks and Q2H turning Urinary Retention 10/24: baker removed - continue to monitor for urinary retention Previous note 577cc urine retained 10/20 Baker placed 10/20, will attempt bladder training and removal in 24 hours Flomax 0.8 mg PO daily Proscar 5mg PO daily monitor I's and O's Failure to thrive 10/24: Tube feedings in place, will continue with current management Previous note: Continuous Tube feeds at 60cc/hr goal per nutrition recommendations with 300cc of free water flush q8H Measure weight weekly. Continue to monitor Respiratory failure 10/24: Trach collar in place, with some secretions, will suction when needed, continue with current management. Previous note Continue Current management of trach collar and secretions- continue to suction as needed CAD (coronary artery disease) s/p cardiac stents on 06/13/15 ASA 81mg via PEG daily - renewed 11/28 Coreg 3.125mg PEG BID Plavix 75mg via PEG daily Seizures Keppra 500mg PEG BID for seizure prophylaxis Lower extremity edema giving one dose lasix 40mg via PEG today Prophylactic measure Pepcid 20 mg PEG daily Lovenox 30mg SC daily [facility] <Nathaniel Beth - Last Filed: 10/26/16 09:30> Objective - Vital Signs/Intake and Output Vital Signs (last 24 hours): Temp Pulse Resp BP Pulse Ox 99.9 F H 84 20 106/69 100 10/26/16 08:25 10/26/16 08:25 10/26/16 08:25 10/26/16 08:25 10/26/16 08:25 Intake and Output: 10/26/16 10/26/16 06:59 18:59 Intake Total 1260 Output Total 700 Balance 560 - Medications Medications: Current Medications Acetaminophen (Tylenol 325mg Tab) 650 mg PO Q6 PRN PRN Reason: Fever >100.4 F Last Admin: 10/08/16 10:12 Dose: 650 mg Aspirin (Aspirin Chewable) 81 mg PEG DAILY [facility] Last Admin: 10/26/16 09:20 Dose: 81 mg Bethanechol Chloride (Urecholine) 10 mg PO TID [facility] Last Admin: 10/26/16 09:20 Dose: 10 mg Tamsulosin HCl (Flomax) 0.8 mg PO DAILY [facility] Last Admin: 10/26/16 09:20 Dose: 0.8 mg - Labs Labs: 10/26/16 08:15 10/26/16 08:15 PT 10.6 SECONDS (9.7-12.2) 11/24/15 14:10 INR 1.0 11/24/15 14:10 APTT 25 SECONDS (21-34) 11/24/15 14:10 Attending/Attestation - Attestation I have personally seen and examined this patient.: Yes I have fully participated in the care of the patient.: Yes I have reviewed all pertinent clinical information, including history, physical exam and plan: Yes Notes (Text): Patient admitted s/p cardiac arrest, ensuing anoxic encephalopathy; prolonged hospital course due to inability to find placement; Active issues: Urinary retention - Baker discontinued yesterday; had already been on flomax and finasteride prior to most recent incidence of urinary retention that prompted baker re-insertion and subsequently another UTI; started on bethanecol this week for possible neurogenic bladder; no significant residual on bladder scan today; -periodic bladder scan (will repeat again tomorrow) -continue bethanecol, may need to increase dose as needed Sacral decubitus ulcer - Again with stage I ulcer on exam today, ~1 cm diameter , blanching lesion; no heel ulcers; -nursing staff instructed to again apply protective ointment -frequent repositioning CAD s/p stent - continue ASA/plavix; coreg for systolic dysfunction (euvolemic on exam); Hypernatremia - Resolved; follow weekly labs to assess for change in free water administration.
[2016-10-25] MEDS: levETIRAcetam 100 mg/ml (5ml) Oral Syringe PEG SCH ×2 (09:10→18:22)
[2016-10-25] MEDS: Enoxaparin 30 mg Syringe SC SCH (10:40)
--- NOTE | 2016-10-26 03:05 | CP.PCM.PN ---
Subjective - Date & Time of Evaluation Date of Evaluation: 10/26/16 Time of Evaluation: 03:03 - Subjective Subjective: PGY-1 note for hospitalist service Pt seen and examined at bedside. According to nursing staff he developed course rales throughout all long carter. After some respiratory therapy the rales cleared. He did no appear to be in any respiratory distress. Objective - Vital Signs/Intake and Output Vital Signs (last 24 hours): Temp Pulse Resp BP Pulse Ox 97.7 F 109 H 20 105/69 99 10/25/16 23:42 10/25/16 23:42 10/25/16 23:42 10/25/16 23:42 10/25/16 23:42 Intake and Output: 10/25/16 10/26/16 18:59 06:59 Intake Total 780 480 Output Total 1 300 Balance 779 180 - Medications Medications: Current Medications Acetaminophen (Tylenol 325mg Tab) 650 mg PO Q6 PRN PRN Reason: Fever >100.4 F Last Admin: 10/08/16 10:12 Dose: 650 mg Aspirin (Aspirin Chewable) 81 mg PEG DAILY [facility] Last Admin: 10/25/16 09:10 Dose: 81 mg Bethanechol Chloride (Urecholine) 10 mg PO TID [facility] Last Admin: 10/25/16 18:22 Dose: 10 mg Carvedilol (Coreg) 3.125 mg PEG BID [facility] Last Admin: 10/25/16 18:22 Dose: 3.125 mg Clopidogrel Bisulfate (Plavix) 75 mg PEG DAILY [facility] Last Admin: 10/25/16 09:10 Dose: 75 mg Famotidine (Pepcid) 20 mg PEG DAILY [facility] Last Admin: 10/25/16 09:10 Dose: 20 mg Finasteride (Proscar) 5 mg PO DAILY [facility] Last Admin: 10/25/16 09:10 Dose: 5 mg Levetiracetam (Keppra) 500 mg PEG BID [facility] Last Admin: 10/25/16 18:22 Dose: 500 mg Tamsulosin HCl (Flomax) 0.8 mg PO DAILY [facility] Last Admin: 10/25/16 09:10 Dose: 0.8 mg - Labs Labs: 10/19/16 07:21 10/19/16 07:21 PT 10.6 SECONDS (9.7-12.2) 11/24/15 14:10 INR 1.0 11/24/15 14:10 APTT 25 SECONDS (21-34) 11/24/15 14:10 - Constitutional Appears: No Acute Distress, Chronically Ill - Head Exam Head Exam: ATRAUMATIC, NORMOCEPHALIC - Eye Exam Eye Exam: Normal appearance - ENT Exam ENT Exam: Mucous Membranes Moist - Respiratory Exam Respiratory Exam: Clear to Ausculation Bilateral, NORMAL BREATHING PATTERN. absent: Rales, Wheezes Additional comments: on vent - Cardiovascular Exam Cardiovascular Exam: REGULAR RHYTHM, +S1, +S2 - GI/Abdominal Exam GI & Abdominal Exam: Soft, Normal Bowel Sounds - Neurological Exam Neurological Exam: Alert, Awake - Psychiatric Exam Psychiatric exam: Normal Affect, Normal Mood Assessment and Plan - Assessment and Plan (Free Text) Assessment: Anoxic encephalopathy 10/25: no acute events overnight - continue with current management Previous note: F/U labs every Thursday Turn Q2 hours- Continue to monitor feeds through PEG @ reduced rate 60cc/hr per Nutrition recommendations suctioning trach routinely Pending residential facility placement Hypoalbuminemia Prostat 30mL 1x / day Sacral Ulcers Previous note: Healing linear 5 cm fissure with area of erythema Nursing to use barrier to prevent further progression of abrasion Continue to monitor with skin checks and Q2H turning Urinary Retention 10/24: baker removed - continue to monitor for urinary retention Previous note 577cc urine retained 10/20 Baker placed 10/20, will attempt bladder training and removal in 24 hours Flomax 0.8 mg PO daily Proscar 5mg PO daily monitor I's and O's Failure to thrive 10/24: Tube feedings in place, will continue with current management Previous note: Continuous Tube feeds at 60cc/hr goal per nutrition recommendations with 300cc of free water flush q8H Measure weight weekly. Continue to monitor Respiratory failure 10/24: Trach collar in place, with some secretions, will suction when needed, continue with current management. Previous note Continue Current management of trach collar and secretions- continue to suction as needed CAD (coronary artery disease) s/p cardiac stents on 06/13/15 ASA 81mg via PEG daily - renewed 10/20 Coreg 3.125mg PEG BID Plavix 75mg via PEG daily Seizures Keppra 500mg PEG BID for seizure prophylaxis Lower extremity edema giving one dose lasix 40mg via PEG today Prophylactic measure Pepcid 20 mg PEG daily Lovenox 30mg SC daily [facility]
[2016-10-26 08:37] LABS: HEMOGLOBIN 11.6 g/dL (12.0-18.0); MEAN CELL VOLUME 87.9 fL (80.0-94.0); MEAN CORPUSCULAR HEMOGLOBIN 28.7 pg (27.0-31.0); MEAN CORPUSCULAR HGB CONC 32.7 g/dL (33.0-37.0); MEAN PLATELET VOLUME 9.4 fL (7.2-11.7); RBC 4.03 Mil/uL (4.40-5.90); RED CELL DISTRIBUTION WIDTH 15.4 % (11.5-14.5); WHITE BLOOD COUNT 8.4 K/uL (4.8-10.8)
[2016-10-26 08:49] LABS: ALBUMIN 3.6 g/dL (3.5-5.0)
[2016-10-26 08:52] LABS: ALB/GLOB RATIO 0.9 (1.0-2.1); AST/SGOT 25 U/L (17-59); BLOOD UREA NITROGEN 16 mg/dL (9-20); GFR NON-AFRICAN AMERICAN > 60
[2016-10-26 08:53] LABS: ALT/SGPT 49 U/L (21-72); CALCIUM 8.3 mg/dl (8.6-10.4)
[2016-10-26] MEDS: levETIRAcetam 100 mg/ml (5ml) Oral Syringe PEG SCH (17:45)
[2016-10-27] MEDS: levETIRAcetam 100 mg/ml (5ml) Oral Syringe PEG SCH ×2 (10:13→18:57)
[2016-10-27] MEDS: Enoxaparin 40 mg Syringe SC SCH (10:15)
--- NOTE | 2016-10-27 10:36 | CP.PCM.PN ---
<Saurabh Carmichael - Last Filed: 10/27/16 16:00> Subjective - Date & Time of Evaluation Date of Evaluation: 10/27/16 Time of Evaluation: 07:00 - Subjective Subjective: PGY-[address] Ying's service: Pt seen and examined at bedside. Nursing reports no acute events overnight. Last week pt was retaining urine so baker catheter was placed, as well as Flomax , Proscar started. Pt had baker removed on Thursday, 10/24 and condom catheter reinserted. According to nursing, pt has been urinating well, and straw colored urine is visible in catheter bag. Pt with no change in baseline mental status. Continues to respond to to painful stimuli PEG feeds @ 60cc/hr tolerated with free water flush 300cc Q8H Prostat 1 daily as per dietary reccs VSS Patient on Bethanecol 10mg TID for neurogenic bladder Offloading boots secure ROS unobtainable Objective - Vital Signs/Intake and Output Vital Signs (last 24 hours): Temp Pulse Resp BP Pulse Ox 98.1 F 89 20 112/74 97 10/27/16 07:46 10/27/16 07:46 10/27/16 07:46 10/27/16 07:46 10/27/16 07:46 Intake and Output: 10/27/16 10/27/16 06:59 18:59 Intake Total 780 780 Output Total 300 1000 Balance 480 -220 - Medications Medications: Current Medications Acetaminophen (Tylenol 325mg Tab) 650 mg PO Q6 PRN PRN Reason: Fever >100.4 F Last Admin: 10/08/16 10:12 Dose: 650 mg Aspirin (Aspirin Chewable) 81 mg PEG DAILY [facility] Last Admin: 10/27/16 10:14 Dose: 81 mg Bethanechol Chloride (Urecholine) 10 mg PO TID [facility] Last Admin: 10/27/16 10:14 Dose: 10 mg Carvedilol (Coreg) 3.125 mg PEG BID [facility] Last Admin: 10/27/16 10:14 Dose: 3.125 mg Clopidogrel Bisulfate (Plavix) 75 mg PEG DAILY [facility] Last Admin: 10/27/16 10:14 Dose: 75 mg Enoxaparin Sodium (Lovenox) 40 mg SC DAILY [facility] Last Admin: 10/27/16 10:15 Dose: 40 mg Famotidine (Pepcid) 20 mg PEG BID [facility] Last Admin: 10/27/16 10:13 Dose: 20 mg Finasteride (Proscar) 5 mg PEG DAILY [facility] Last Admin: 10/27/16 10:14 Dose: 5 mg Levetiracetam (Keppra) 500 mg PEG BID [facility] Last Admin: 10/27/16 10:13 Dose: 500 mg Tamsulosin HCl (Flomax) 0.8 mg PO DAILY [facility] Last Admin: 10/27/16 10:13 Dose: 0.8 mg - Labs Labs: 10/26/16 08:15 10/26/16 08:15 PT 10.6 SECONDS (9.7-12.2) 11/24/15 14:10 INR 1.0 11/24/15 14:10 APTT 25 SECONDS (21-34) 11/24/15 14:10 - Constitutional Appears: No Acute Distress, Chronically Ill - Head Exam Head Exam: ATRAUMATIC, NORMOCEPHALIC - Eye Exam Eye Exam: Normal appearance - ENT Exam ENT Exam: Mucous Membranes Moist - Neck Exam Neck Exam: Normal Inspection - Respiratory Exam Respiratory Exam: Clear to Ausculation Bilateral, NORMAL BREATHING PATTERN. absent: Rhonchi, Wheezes Additional comments: trach collar in place - Cardiovascular Exam Cardiovascular Exam: REGULAR RHYTHM, +S1, +S2 - GI/Abdominal Exam GI & Abdominal Exam: Soft, Normal Bowel Sounds - Neurological Exam Neurological Exam: Alert, Awake. absent: CN II-XII Intact, Oriented x3 - Skin Skin Exam: Normal Color, Warm Additional comments: Sacral ulcer - Healing linear 5 cm fissure with area of erythema Nursing to use barrier to prevent further progression of abrasion Continue to monitor with skin checks and Q2H turning Assessment and Plan - Assessment and Plan (Free Text) Assessment: Anoxic encephalopathy 10/27: Pt afebrile; non-tachy F/U labs every Thursday Turn Q2 hours- Continue to monitor feeds through PEG @ reduced rate 60cc/hr per Nutrition recommendations suctioning trach routinely Pending usp facility placement Hypoalbuminemia Prostat 30mL 1x / day Sacral Ulcers 10/27: Healing linear 5 cm fissure with area of erythema Nursing to use barrier to prevent further progression of abrasion Continue to monitor with skin checks and Q2H turning Urinary Retention 10/27: Adequate urinary production 10/24: baker removed - continue to monitor for urinary retention 577cc urine retained 10/20 Baker placed 10/20, will attempt bladder training and removal in 24 hours Flomax 0.8 mg PO daily Proscar 5mg PO daily Bethanecol 10 mg PO TID monitor I's and O's Failure to thrive 10/27: Tube feedings in place, will continue with current management Previous note: Continuous Tube feeds at 60cc/hr goal per nutrition recommendations with 300cc of free water flush q8H Measure weight weekly. Continue to monitor Respiratory failure 10/27: No rales noted on exam Trach collar in place, with some secretions, will suction when needed, continue with current management. Previous note Continue Current management of trach collar and secretions- continue to suction as needed CAD (coronary artery disease) s/p cardiac stents on 06/13/15 ASA 81mg via PEG daily - renewed 10/20 Coreg 3.125mg PEG BID Plavix 75mg via PEG daily Seizures Keppra 500mg PEG BID for seizure prophylaxis Lower extremity edema giving one dose lasix 40mg via PEG today Prophylactic measure Pepcid 20 mg PEG daily Lovenox 30mg SC daily [facility] <Donnell Ying M - Last Filed: 10/27/16 17:47> Objective - Vital Signs/Intake and Output Vital Signs (last 24 hours): Temp Pulse Resp BP Pulse Ox 97.9 F 71 20 105/66 97 10/27/16 16:42 10/27/16 16:42 10/27/16 16:42 10/27/16 16:42 10/27/16 16:42 Intake and Output: 10/27/16 10/27/16 06:59 18:59 Intake Total 780 780 Output Total 300 2000 Balance 480 -1220 - Medications Medications: Current Medications Acetaminophen (Tylenol 325mg Tab) 650 mg PO Q6 PRN PRN Reason: Fever >100.4 F Last Admin: 10/08/16 10:12 Dose: 650 mg Aspirin (Aspirin Chewable) 81 mg PEG DAILY [facility] Last Admin: 10/27/16 10:14 Dose: 81 mg Bethanechol Chloride (Urecholine) 10 mg PO TID [facility] Last Admin: 10/27/16 10:14 Dose: 10 mg Carvedilol (Coreg) 3.125 mg PEG BID [facility] Last Admin: 10/27/16 10:14 Dose: 3.125 mg Clopidogrel Bisulfate (Plavix) 75 mg PEG DAILY [facility] Last Admin: 10/27/16 10:14 Dose: 75 mg Enoxaparin Sodium (Lovenox) 40 mg SC DAILY [facility] Last Admin: 10/27/16 10:15 Dose: 40 mg Famotidine (Pepcid) 20 mg PEG BID [facility] Last Admin: 10/27/16 10:13 Dose: 20 mg Finasteride (Proscar) 5 mg PEG DAILY [facility] Last Admin: 10/27/16 10:14 Dose: 5 mg Levetiracetam (Keppra) 500 mg PEG BID [facility] Last Admin: 10/27/16 10:13 Dose: 500 mg Tamsulosin HCl (Flomax) 0.8 mg PO DAILY [facility] Last Admin: 10/27/16 10:13 Dose: 0.8 mg - Labs Labs: 10/26/16 08:15 10/26/16 08:15 PT 10.6 SECONDS (9.7-12.2) 11/24/15 14:10 INR 1.0 11/24/15 14:10 APTT 25 SECONDS (21-34) 11/24/15 14:10 Attending/Attestation - Attestation I have personally seen and examined this patient.: Yes I have fully participated in the care of the patient.: Yes I have reviewed all pertinent clinical information, including history, physical exam and plan: Yes Notes (Text): 10/27/16 17:47 Patient was seen and examined at bedside with the resident No change in clinical condition Patient is urine output noted Patient has adequate urine output at this time Continue current management
[2016-10-28] MEDS: levETIRAcetam 100 mg/ml (5ml) Oral Syringe PEG SCH ×2 (10:49→18:50)
[2016-10-28] MEDS: Enoxaparin 40 mg Syringe SC SCH (10:59)
--- NOTE | 2016-10-28 15:22 | CP.PCM.PN ---
<JosemanuelIram cage - Last Filed: 10/28/16 15:49> Subjective - Date & Time of Evaluation Date of Evaluation: 10/28/16 Time of Evaluation: 15:20 - Subjective Subjective: Patient is seen and examined at bedside. There were no acute events overnight. Trach collar, peg tube and condom catheter are in place. Patient has secretions audible in trach site. There is no change from baseline mental status and ROS are unattainable due to anoxic encephalopathy. Objective - Vital Signs/Intake and Output Vital Signs (last 24 hours): Temp Pulse Resp BP Pulse Ox 97.9 F 81 20 127/82 98 10/28/16 07:28 10/28/16 07:28 10/28/16 07:28 10/28/16 07:28 10/28/16 07:28 Intake and Output: 10/28/16 10/28/16 06:59 18:59 Intake Total 1300 830 Output Total 600 400 Balance 700 430 - Medications Medications: Current Medications Acetaminophen (Tylenol 325mg Tab) 650 mg PO Q6 PRN PRN Reason: Fever >100.4 F Last Admin: 10/08/16 10:12 Dose: 650 mg Aspirin (Aspirin Chewable) 81 mg PEG DAILY [facility] Last Admin: 10/28/16 10:30 Dose: 81 mg Bethanechol Chloride (Urecholine) 10 mg PO TID [facility] Last Admin: 10/28/16 13:15 Dose: 10 mg Carvedilol (Coreg) 3.125 mg PEG BID [facility] Last Admin: 10/28/16 10:38 Dose: 3.125 mg Clopidogrel Bisulfate (Plavix) 75 mg PEG DAILY [facility] Last Admin: 10/28/16 10:39 Dose: 75 mg Enoxaparin Sodium (Lovenox) 40 mg SC DAILY [facility] Last Admin: 10/28/16 10:59 Dose: 40 mg Famotidine (Pepcid) 20 mg PEG BID [facility] Last Admin: 10/28/16 10:42 Dose: 20 mg Finasteride (Proscar) 5 mg PEG DAILY [facility] Last Admin: 10/28/16 10:47 Dose: 5 mg Levetiracetam (Keppra) 500 mg PEG BID [facility] Last Admin: 10/28/16 10:49 Dose: 500 mg Tamsulosin HCl (Flomax) 0.8 mg PO DAILY [facility] Last Admin: 10/28/16 10:49 Dose: 0.8 mg - Labs Labs: 10/26/16 08:15 10/26/16 08:15 PT 10.6 SECONDS (9.7-12.2) 11/24/15 14:10 INR 1.0 11/24/15 14:10 APTT 25 SECONDS (21-34) 11/24/15 14:10 - Constitutional Appears: No Acute Distress - Eye Exam Pupil Exam: PERRL - Respiratory Exam Respiratory Exam: Clear to Ausculation Bilateral. absent: Rales, Rhonchi, Wheezes - Cardiovascular Exam Cardiovascular Exam: RRR, +S1, +S2. absent: Gallop, Rubs, Murmur - GI/Abdominal Exam GI & Abdominal Exam: Soft, Normal Bowel Sounds. 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 10/24: baker removed - continue to monitor for urinary retention 577cc urine retained 10/20 Baker placed 10/20, will attempt bladder training and removal in 24 hours Flomax 0.8 mg PO daily Proscar 5mg PO daily Bethanecol 10 mg PO TID monitor I's and O's Failure to thrive 10/28: Tube feedings in place, will continue with current management Previous note: Continuous Tube feeds at 65cc/hr goal per nutrition recommendations with 300cc of free water flush q8H Measure weight weekly. Continue to monitor Respiratory failure 10/28: No rales noted on exam Trach collar in place, with some secretions, will suction when needed, continue with current management. Previous note Continue Current management of trach collar and secretions- continue to suction as needed CAD (coronary artery disease) s/p cardiac stents on 06/13/15 ASA 81mg via PEG daily - renewed 10/20 Coreg 3.125mg PEG BID Plavix 75mg via PEG daily Seizures Keppra 500mg PEG BID for seizure prophylaxis Lower extremity edema giving one dose lasix 40mg via PEG today Prophylactic measure Pepcid 20 mg PEG daily Lovenox 30mg SC daily [facility] <Donnell Ying - Last Filed: 10/29/16 16:00> Objective - Vital Signs/Intake and Output Vital Signs (last 24 hours): Temp Pulse Resp BP Pulse Ox 98 F 76 20 104/68 97 10/29/16 07:28 10/29/16 07:28 10/29/16 07:28 10/29/16 07:28 10/29/16 07:28 Intake and Output: 10/29/16 10/29/16 06:59 18:59 Intake Total 1580 830 Output Total 1100 400 Balance 480 430 - Medications Medications: Current Medications Acetaminophen (Tylenol 325mg Tab) 650 mg PO Q6 PRN PRN Reason: Fever >100.4 F Last Admin: 10/08/16 10:12 Dose: 650 mg Aspirin (Aspirin Chewable) 81 mg PEG DAILY [facility] Last Admin: 10/29/16 10:43 Dose: 81 mg Bethanechol Chloride (Urecholine) 10 mg PO TID [facility] Last Admin: 10/29/16 14:33 Dose: 10 mg Carvedilol (Coreg) 3.125 mg PEG BID [facility] Last Admin: 10/29/16 10:42 Dose: 3.125 mg Clopidogrel Bisulfate (Plavix) 75 mg PEG DAILY [facility] Last Admin: 10/29/16 10:43 Dose: 75 mg Enoxaparin Sodium (Lovenox) 40 mg SC DAILY [facility] Last Admin: 10/29/16 10:44 Dose: 40 mg Famotidine (Pepcid) 20 mg PEG BID [facility] Last Admin: 10/29/16 10:42 Dose: 20 mg Finasteride (Proscar) 5 mg PEG DAILY [facility] Last Admin: 10/29/16 10:42 Dose: 5 mg Levetiracetam (Keppra) 500 mg PEG BID [facility] Last Admin: 10/29/16 10:44 Dose: 500 mg Tamsulosin HCl (Flomax) 0.8 mg PO DAILY [facility] Last Admin: 10/29/16 10:43 Dose: 0.8 mg - Labs Labs: 10/26/16 08:15 10/26/16 08:15 PT 10.6 SECONDS (9.7-12.2) 11/24/15 14:10 INR 1.0 11/24/15 14:10 APTT 25 SECONDS (21-34) 11/24/15 14:10 Attending/Attestation - Attestation I have personally seen and examined this patient.: Yes I have fully participated in the care of the patient.: Yes I have reviewed all pertinent clinical information, including history, physical exam and plan: Yes Notes (Text): 10/29/16 16:00 Patient seen and examined at bedside with the resident Skin exam in bed appears to be discussed ulcer at this time we'll continue the current management Turn and position every 2 hours
[2016-10-29] MEDS: levETIRAcetam 100 mg/ml (5ml) Oral Syringe PEG SCH ×2 (10:44→17:51)
[2016-10-29] MEDS: Enoxaparin 40 mg Syringe SC SCH (10:44)
--- NOTE | 2016-10-29 19:01 | CP.PCM.PN ---
<Merrcik Heck - Last Filed: 10/29/16 18:58> Subjective - Date & Time of Evaluation Date of Evaluation: 10/29/16 Time of Evaluation: 09:30 - Subjective Subjective: PGY3 resident on hospitalist service Patient seen and examined at bedside this AM. No acute changes or events overnight - [place] catheter in place - good urine output today. PEG and trach collar in place and functioning well. Resting comfortably in bed at this time. Objective - Vital Signs/Intake and Output Vital Signs (last 24 hours): Temp Pulse Resp BP Pulse Ox 98.0 F 76 20 132/90 100 10/29/16 15:00 10/29/16 17:51 10/29/16 15:00 10/29/16 17:51 10/29/16 15:00 Intake and Output: 10/29/16 10/29/16 06:59 18:59 Intake Total 1580 830 Output Total 1100 400 Balance 480 430 - Medications Medications: Current Medications Acetaminophen (Tylenol 325mg Tab) 650 mg PO Q6 PRN PRN Reason: Fever >100.4 F Last Admin: 10/08/16 10:12 Dose: 650 mg Aspirin (Aspirin Chewable) 81 mg PEG DAILY [facility] Last Admin: 10/29/16 10:43 Dose: 81 mg Bethanechol Chloride (Urecholine) 10 mg PO TID [facility] Last Admin: 10/29/16 17:55 Dose: 10 mg Carvedilol (Coreg) 3.125 mg PEG BID [facility] Last Admin: 10/29/16 17:52 Dose: 3.125 mg Clopidogrel Bisulfate (Plavix) 75 mg PEG DAILY [facility] Last Admin: 10/29/16 10:43 Dose: 75 mg Enoxaparin Sodium (Lovenox) 40 mg SC DAILY [facility] Last Admin: 10/29/16 10:44 Dose: 40 mg Famotidine (Pepcid) 20 mg PEG BID [facility] Last Admin: 10/29/16 17:52 Dose: 20 mg Finasteride (Proscar) 5 mg PEG DAILY [facility] Last Admin: 10/29/16 10:42 Dose: 5 mg Levetiracetam (Keppra) 500 mg PEG BID [facility] Last Admin: 10/29/16 17:51 Dose: 500 mg Tamsulosin HCl (Flomax) 0.8 mg PO DAILY [facility] Last Admin: 10/29/16 10:43 Dose: 0.8 mg - Labs Labs: 10/26/16 08:15 10/26/16 08:15 PT 10.6 SECONDS (9.7-12.2) 11/24/15 14:10 INR 1.0 11/24/15 14:10 APTT 25 SECONDS (21-34) 11/24/15 14:10 - Constitutional Appears: Non-toxic, No Acute Distress, Chronically Ill - Head Exam Head Exam: NORMAL INSPECTION, NORMOCEPHALIC - Eye Exam Eye Exam: Normal appearance, PERRL - ENT Exam ENT Exam: Mucous Membranes Moist, Normal Oropharynx - Neck Exam Neck Exam: Normal Inspection. absent: Lymphadenopathy Additional comments: trach collar in place - Respiratory Exam Respiratory Exam: NORMAL BREATHING PATTERN. absent: Wheezes - Cardiovascular Exam Cardiovascular Exam: REGULAR RHYTHM, +S1, +S2 - GI/Abdominal Exam GI & Abdominal Exam: Soft, Normal Bowel Sounds - Extremities Exam Extremities Exam: Normal Capillary Refill Additional comments: bilateral plantar flexed feet/ankles - Neurological Exam Neurological Exam: Awake. 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 10/24: baker removed - continue to monitor for urinary retention 577cc urine retained 10/20 Baker placed 10/20, will attempt bladder training and removal in 24 hours Flomax 0.8 mg PO daily Proscar 5mg PO daily Bethanecol 10 mg PO TID monitor I's and O's Failure to thrive 10/29: Tube feedings in place, will continue with current management Previous note: Continuous Tube feeds at 65cc/hr goal per nutrition recommendations with 300cc of free water flush q8H Measure weight weekly. Continue to monitor Respiratory failure 10/29: No rales noted on exam Trach collar in place, with some secretions, will suction when needed, continue with current management. Previous note Continue Current management of trach collar and secretions- continue to suction as needed CAD (coronary artery disease) s/p cardiac stents on 06/13/15 ASA 81mg via PEG daily - renewed 10/20 Coreg 3.125mg PEG BID Plavix 75mg via PEG daily Seizures Keppra 500mg PEG BID for seizure prophylaxis Lower extremity edema giving one dose lasix 40mg via PEG today Prophylactic measure Pepcid 20 mg PEG daily Lovenox 30mg SC daily [facility] <Carlos A Yingn M - Last Filed: 10/30/16 10:09> Objective - Vital Signs/Intake and Output Vital Signs (last 24 hours): Temp Pulse Resp BP Pulse Ox 97.9 F 74 20 122/82 97 10/30/16 07:45 10/30/16 07:45 10/30/16 07:45 10/30/16 07:45 10/30/16 07:45 Intake and Output: 10/30/16 10/30/16 06:59 18:59 Intake Total 1600 Output Total 1000 Balance 600 - Medications Medications: Current Medications Acetaminophen (Tylenol 325mg Tab) 650 mg PO Q6 PRN PRN Reason: Fever >100.4 F Last Admin: 10/08/16 10:12 Dose: 650 mg Aspirin (Aspirin Chewable) 81 mg PEG DAILY [facility] Last Admin: 10/29/16 10:43 Dose: 81 mg Bethanechol Chloride (Urecholine) 10 mg PO TID [facility] Last Admin: 10/29/16 17:55 Dose: 10 mg Carvedilol (Coreg) 3.125 mg PEG BID [facility] Last Admin: 10/29/16 17:52 Dose: 3.125 mg Clopidogrel Bisulfate (Plavix) 75 mg PEG DAILY [facility] Last Admin: 10/29/16 10:43 Dose: 75 mg Enoxaparin Sodium (Lovenox) 40 mg SC DAILY [facility] Last Admin: 10/29/16 10:44 Dose: 40 mg Famotidine (Pepcid) 20 mg PEG BID [facility] Last Admin: 10/29/16 17:52 Dose: 20 mg Finasteride (Proscar) 5 mg PEG DAILY [facility] Last Admin: 10/29/16 10:42 Dose: 5 mg Levetiracetam (Keppra) 500 mg PEG BID [facility] Last Admin: 10/29/16 17:51 Dose: 500 mg Tamsulosin HCl (Flomax) 0.8 mg PO DAILY [facility] Last Admin: 10/29/16 10:43 Dose: 0.8 mg - Labs Labs: 10/26/16 08:15 10/26/16 08:15 PT 10.6 SECONDS (9.7-12.2) 11/24/15 14:10 INR 1.0 11/24/15 14:10 APTT 25 SECONDS (21-34) 11/24/15 14:10 Attending/Attestation - Attestation I have personally seen and examined this patient.: Yes I have fully participated in the care of the patient.: Yes I have reviewed all pertinent clinical information, including history, physical exam and plan: Yes Notes (Text): 10/30/16 10:09 Patient was seen and examined at bedside No change in clinical condition Continue current management
[2016-10-30] MEDS: Enoxaparin 40 mg Syringe SC SCH (10:13)
[2016-10-30] MEDS: levETIRAcetam 100 mg/ml (5ml) Oral Syringe PEG SCH ×2 (10:14→18:28)
--- NOTE | 2016-10-30 15:17 | CP.PCM.PN ---
<Joel Lin H - Last Filed: 10/30/16 17:34> Subjective - Date & Time of Evaluation Date of Evaluation: 10/30/16 Time of Evaluation: 11:30 - Subjective Subjective: Dr. Ying Service: Patient examined in room. Unable to obtain ROS due to patient's condition, no acute events overnight per nursing staff. patient is resting comfortably in bed with his eyes open with spontaneous non purposeful movement. Objective - Vital Signs/Intake and Output Vital Signs (last 24 hours): Temp Pulse Resp BP Pulse Ox 97.9 F 74 20 122/82 97 10/30/16 07:45 10/30/16 07:45 10/30/16 07:45 10/30/16 07:45 10/30/16 07:45 Intake and Output: 10/30/16 10/30/16 06:59 18:59 Intake Total 1600 830 Output Total 1000 500 Balance 600 330 - Medications Medications: Current Medications Acetaminophen (Tylenol 325mg Tab) 650 mg PO Q6 PRN PRN Reason: Fever >100.4 F Last Admin: 10/08/16 10:12 Dose: 650 mg Aspirin (Aspirin Chewable) 81 mg PEG DAILY [facility] Last Admin: 10/30/16 10:15 Dose: 81 mg Bethanechol Chloride (Urecholine) 10 mg PO TID [facility] Last Admin: 10/30/16 13:51 Dose: 10 mg Carvedilol (Coreg) 3.125 mg PEG BID [facility] Last Admin: 10/30/16 10:15 Dose: 3.125 mg Clopidogrel Bisulfate (Plavix) 75 mg PEG DAILY [facility] Last Admin: 10/30/16 10:14 Dose: 75 mg Enoxaparin Sodium (Lovenox) 40 mg SC DAILY [facility] Last Admin: 10/30/16 10:13 Dose: 40 mg Famotidine (Pepcid) 20 mg PEG BID [facility] Last Admin: 10/30/16 10:14 Dose: 20 mg Finasteride (Proscar) 5 mg PEG DAILY [facility] Last Admin: 10/30/16 10:14 Dose: 5 mg Levetiracetam (Keppra) 500 mg PEG BID [facility] Last Admin: 10/30/16 10:14 Dose: 500 mg Tamsulosin HCl (Flomax) 0.8 mg PO DAILY [facility] Last Admin: 12/08/16 10:14 Dose: 0.8 mg - Labs Labs: 10/26/16 08:15 10/26/16 08:15 PT 10.6 SECONDS (9.7-12.2) 11/24/15 14:10 INR 1.0 11/24/15 14:10 APTT 25 SECONDS (21-34) 11/24/15 14:10 - Constitutional Appears: Chronically Ill - Head Exam Head Exam: ATRAUMATIC, NORMAL INSPECTION, NORMOCEPHALIC - Eye Exam Eye Exam: Normal appearance - Respiratory Exam Respiratory Exam: Clear to Ausculation Bilateral. absent: Rales, Rhonchi, Wheezes - Cardiovascular Exam Cardiovascular Exam: REGULAR RHYTHM, RRR, +S1, +S2. absent: Gallop, Rubs - GI/Abdominal Exam GI & Abdominal Exam: Soft - Extremities Exam Extremities Exam: absent: Pedal Edema - Skin Skin Exam: Normal Color, Warm Assessment and Plan - Assessment and Plan (Free Text) Assessment: Anoxic encephalopathy 10/30: Patient is afebrile, no active seizures. continue current management. 10/29: Pt afebrile; non-tachy F/U labs every Thursday Turn Q2 hours- Continue to monitor feeds through PEG @ reduced rate 65cc/hr per Nutrition recommendations suctioning trach routinely Pending [facility] facility placement Hypoalbuminemia Prostat 30mL 1x / day Sacral Ulcers 10/30: No acute changes, healing linear 5 cm fissure, continue to turn patient Q2H. 10/29: Healing linear 5 cm fissure with area of erythema Nursing to use barrier to prevent further progression of abrasion Continue to monitor with skin checks and Q2H turning Urinary Retention 10/30: Condom catheter in place, with straw color urine, no acute changes from yesterday. 10/29: condom catheter in place draining straw colored urine; no changes from 10/27: Adequate urinary production. 10/24: baker removed - continue to monitor for urinary retention 577cc urine retained 10/20 Baker placed 10/20, will attempt bladder training and removal in 24 hours Flomax 0.8 mg PO daily Proscar 5mg PO daily Bethanecol 10 mg PO TID monitor I's and O's Failure to thrive 10/30: continue current tube feedings 10/29: Tube feedings in place, will continue with current management Previous note: Continuous Tube feeds at 65cc/hr goal per nutrition recommendations with 300cc of free water flush q8H Measure weight weekly. Continue to monitor Respiratory failure 10/30: breath sounds were clear 10/29: No rales noted on exam Trach collar in place, with some secretions, will suction when needed, continue with current management. Previous note Continue Current management of trach collar and secretions- continue to suction as needed CAD (coronary artery disease) s/p cardiac stents on 06/13/15 ASA 81mg via PEG daily - renewed 10/20 Coreg 3.125mg PEG BID Plavix 75mg via PEG daily Seizures Keppra 500mg PEG BID for seizure prophylaxis Lower extremity edema giving one dose lasix 40mg via PEG today Prophylactic measure Pepcid 20 mg PEG daily Lovenox 30mg SC daily [facility] <Donnell Ying - Last Filed: 10/30/16 17:59> Objective - Vital Signs/Intake and Output Vital Signs (last 24 hours): Temp Pulse Resp BP Pulse Ox 97.7 F 76 20 114/71 100 10/30/16 16:00 10/30/16 16:00 10/30/16 16:00 10/30/16 16:00 10/30/16 16:00 Intake and Output: 10/30/16 10/30/16 06:59 18:59 Intake Total 1600 830 Output Total 1000 500 Balance 600 330 - Medications Medications: Current Medications Acetaminophen (Tylenol 325mg Tab) 650 mg PO Q6 PRN PRN Reason: Fever >100.4 F Last Admin: 10/08/16 10:12 Dose: 650 mg Aspirin (Aspirin Chewable) 81 mg PEG DAILY [facility] Last Admin: 10/30/16 10:15 Dose: 81 mg Bethanechol Chloride (Urecholine) 10 mg PO TID [facility] Last Admin: 10/30/16 13:51 Dose: 10 mg Carvedilol (Coreg) 3.125 mg PEG BID [facility] Last Admin: 10/30/16 10:15 Dose: 3.125 mg Clopidogrel Bisulfate (Plavix) 75 mg PEG DAILY [facility] Last Admin: 10/30/16 10:14 Dose: 75 mg Enoxaparin Sodium (Lovenox) 40 mg SC DAILY [facility] Last Admin: 10/30/16 10:13 Dose: 40 mg Famotidine (Pepcid) 20 mg PEG BID [facility] Last Admin: 10/30/16 10:14 Dose: 20 mg Finasteride (Proscar) 5 mg PEG DAILY [facility] Last Admin: 10/30/16 10:14 Dose: 5 mg Levetiracetam (Keppra) 500 mg PEG BID [facility] Last Admin: 10/30/16 10:14 Dose: 500 mg Tamsulosin HCl (Flomax) 0.8 mg PO DAILY [facility] Last Admin: 10/30/16 10:14 Dose: 0.8 mg - Labs Labs: 10/26/16 08:15 10/26/16 08:15 PT 10.6 SECONDS (9.7-12.2) 11/24/15 14:10 INR 1.0 11/24/15 14:10 APTT 25 SECONDS (21-34) 11/24/15 14:10 Attending/Attestation - Attestation I have personally seen and examined this patient.: Yes I have fully participated in the care of the patient.: Yes I have reviewed all pertinent clinical information, including history, physical exam and plan: Yes Notes (Text): 10/30/16 17:59 Patient was seen and examined at bedside with the resident No change in clinical condition excellent continue current management Turn and position every 2 hours I agree with the above history and physical and assessment/plan by the resident
[2016-10-31] MEDS: Enoxaparin 40 mg Syringe SC SCH (11:14)
[2016-10-31] MEDS: levETIRAcetam 100 mg/ml (5ml) Oral Syringe PEG SCH ×2 (11:15→17:55)
--- NOTE | 2016-10-31 15:36 | CP.PCM.PN ---
<Merrick Heck - Last Filed: 10/31/16 15:32> Subjective - Date & Time of Evaluation Date of Evaluation: 10/31/16 Time of Evaluation: 09:45 - Subjective Subjective: Pgy3 resident on hospitalist service Patient seen and examined at bedside this AM with family member present. No acute events overnight per nursing or questions from family member. Trach collar and PEG in place and functioning. Condom catheter in place and has good urine output. Objective - Vital Signs/Intake and Output Vital Signs (last 24 hours): Temp Pulse Resp BP Pulse Ox 98.4 F 98 H 20 126/76 99 10/31/16 08:00 10/31/16 08:00 10/31/16 08:00 10/31/16 08:00 10/31/16 08:00 Intake and Output: 10/31/16 10/31/16 06:59 18:59 Intake Total 1650 Output Total 1100 Balance 550 - Medications Medications: Current Medications Acetaminophen (Tylenol 325mg Tab) 650 mg PO Q6 PRN PRN Reason: Fever >100.4 F Last Admin: 10/08/16 10:12 Dose: 650 mg Aspirin (Aspirin Chewable) 81 mg PEG [facility]ILY [facility] Last Admin: 10/31/16 11:15 Dose: 81 mg Bethanechol Chloride (Urecholine) 10 mg PO TID [facility] Last Admin: 10/31/16 14:06 Dose: 10 mg Carvedilol (Coreg) 3.125 mg PEG BID [facility] Last Admin: 10/31/16 11:16 Dose: 3.125 mg Clopidogrel Bisulfate (Plavix) 75 mg PEG DAILY [facility] Last Admin: 10/31/16 11:15 Dose: 75 mg Enoxaparin Sodium (Lovenox) 40 mg SC DAILY [facility] Last Admin: 10/31/16 11:14 Dose: 40 mg Famotidine (Pepcid) 20 mg PEG BID [facility] Last Admin: 10/31/16 11:16 Dose: 20 mg Finasteride (Proscar) 5 mg PEG DAILY [facility] Last Admin: 10/31/16 11:16 Dose: 5 mg Levetiracetam (Keppra) 500 mg PEG BID [facility] Last Admin: 10/31/16 11:15 Dose: 500 mg Tamsulosin HCl (Flomax) 0.8 mg PO DAILY [facility] Last Admin: 10/31/16 11:16 Dose: 0.8 mg - Labs Labs: 10/26/16 08:15 10/26/16 08:15 PT 10.6 SECONDS (9.7-12.2) 11/24/15 14:10 INR 1.0 11/24/15 14:10 APTT 25 SECONDS (21-34) 11/24/15 14:10 - Constitutional Appears: Chronically Ill - Head Exam Head Exam: NORMOCEPHALIC - Eye Exam Eye Exam: PERRL - ENT Exam ENT Exam: Mucous Membranes Moist, Normal Oropharynx - Respiratory Exam Respiratory Exam: NORMAL BREATHING PATTERN. absent: Wheezes - Cardiovascular Exam Cardiovascular Exam: +S1, +S2 - GI/Abdominal Exam GI & Abdominal Exam: Soft, Normal Bowel Sounds Additional comments: PEG site c/d/i - Extremities Exam Extremities Exam: Normal Capillary Refill - Neurological Exam Neurological Exam: Awake - Psychiatric Exam Psychiatric exam: Flat Affect Assessment and Plan - Assessment and Plan (Free Text) Assessment: Anoxic encephalopathy 10/30: Patient is afebrile, no active seizures. continue current management. 10/29: Pt afebrile; non-tachy F/U labs every Thursday Turn Q2 hours- Continue to monitor feeds through PEG @ reduced rate 65cc/hr per Nutrition recommendations suctioning trach routinely Pending [facility] facility placement Hypoalbuminemia Prostat 30mL 1x / day Sacral Ulcers 10/30: No acute changes, healing linear 5 cm fissure, continue to turn patient Q2H. 10/29: Healing linear 5 cm fissure with area of erythema Nursing to use barrier to prevent further progression of abrasion Continue to monitor with skin checks and Q2H turning Urinary Retention 10/31: no retention today - [place] catheter functioning with 1600c output today 10/29: condom catheter in place draining straw colored urine; no changes from 10/27: Adequate urinary production. 10/24: baker removed - continue to monitor for urinary retention 577cc urine retained 10/20 Baker placed 10/20, will attempt bladder training and removal in 24 hours Flomax 0.8 mg PO daily Proscar 5mg PO daily Bethanecol 10 mg PO TID monitor I's and O's Failure to thrive 10/31: continue current tube feedings 10/29: Tube feedings in place, will continue with current management Previous note: Continuous Tube feeds at 65cc/hr goal per nutrition recommendations with 300cc of free water flush q8H Measure weight weekly. Continue to monitor Respiratory failure 10/31: on trach - respiratory. normal breathing pattern 10/30: breath sounds were clear 10/29: No rales noted on exam Trach collar in place, with some secretions, will suction when needed, continue with current management. Previous note Continue Current management of trach collar and secretions- continue to suction as needed CAD (coronary artery disease) s/p cardiac stents on 06/13/15 ASA 81mg via PEG daily - renewed 10/20 Coreg 3.125mg PEG BID Plavix 75mg via PEG daily Seizures Keppra 500mg PEG BID for seizure prophylaxis Lower extremity edema giving one dose lasix 40mg via PEG today Prophylactic measure Pepcid 20 mg PEG daily Lovenox 30mg SC daily [facility] <Donnell Ying - Last Filed: 10/31/16 17:50> Objective - Vital Signs/Intake and Output Vital Signs (last 24 hours): Temp Pulse Resp BP Pulse Ox 98.9 F 81 18 104/73 97 10/31/16 15:00 10/31/16 15:00 10/31/16 15:00 10/31/16 15:00 10/31/16 15:00 Intake and Output: 10/31/16 10/31/16 06:59 18:59 Intake Total 1650 830 Output Total 1100 500 Balance 550 330 - Medications Medications: Current Medications Acetaminophen (Tylenol 325mg Tab) 650 mg PO Q6 PRN PRN Reason: Fever >100.4 F Last Admin: 10/08/16 10:12 Dose: 650 mg Aspirin (Aspirin Chewable) 81 mg PEG DAILY [facility] Last Admin: 10/31/16 11:15 Dose: 81 mg Bethanechol Chloride (Urecholine) 10 mg PO TID [facility] Last Admin: 10/31/16 14:06 Dose: 10 mg Carvedilol (Coreg) 3.125 mg PEG BID [facility] Last Admin: 10/31/16 11:16 Dose: 3.125 mg Clopidogrel Bisulfate (Plavix) 75 mg PEG DAILY [facility] Last Admin: 10/31/16 11:15 Dose: 75 mg Enoxaparin Sodium (Lovenox) 40 mg SC DAILY [facility] Last Admin: 10/31/16 11:14 Dose: 40 mg Famotidine (Pepcid) 20 mg PEG BID [facility] Last Admin: 10/31/16 11:16 Dose: 20 mg Finasteride (Proscar) 5 mg PEG DAILY [facility] Last Admin: 10/31/16 11:16 Dose: 5 mg Levetiracetam (Keppra) 500 mg PEG BID [facility] Last Admin: 10/31/16 11:15 Dose: 500 mg Tamsulosin HCl (Flomax) 0.8 mg PO DAILY [facility] Last Admin: 10/31/16 11:16 Dose: 0.8 mg - Labs Labs: 10/26/16 08:15 10/26/16 08:15 PT 10.6 SECONDS (9.7-12.2) 11/24/15 14:10 INR 1.0 11/24/15 14:10 APTT 25 SECONDS (21-34) 11/24/15 14:10 Attending/Attestation - Attestation I have personally seen and examined this patient.: Yes I have fully participated in the care of the patient.: Yes I have reviewed all pertinent clinical information, including history, physical exam and plan: Yes Notes (Text): 10/31/16 17:50 Patient was seen and examined at bedside with the resident No change in clinical condition and continue current management
--- NOTE | 2016-11-01 04:08 | CP.PCM.PN ---
<Mee Luciano - Last Filed: 11/01/16 05:25> Subjective - Date & Time of Evaluation Date of Evaluation: 11/01/16 Time of Evaluation: 04:08 - Subjective Subjective: Patient examined at bedside. No acute events per nursing. Trach collar and PEG in place, functioning. Condom catheter in place. Good urine output. Objective - Vital Signs/Intake and Output Vital Signs (last 24 hours): Temp Pulse Resp BP Pulse Ox 98.6 F 72 20 128/77 98 11/01/16 00:24 11/01/16 00:24 11/01/16 00:24 11/01/16 00:24 11/01/16 00:24 Intake and Output: 10/31/16 11/01/16 18:59 06:59 Intake Total 830 870 Output Total 500 Balance 330 870 - Medications Medications: Current Medications Acetaminophen (Tylenol 325mg Tab) 650 mg PO Q6 PRN PRN Reason: Fever >100.4 F Last Admin: 10/08/16 10:12 Dose: 650 mg Aspirin (Aspirin Chewable) 81 mg PEG DAILY [facility] Last Admin: 10/31/16 11:15 Dose: 81 mg Bethanechol Chloride (Urecholine) 10 mg PO TID [facility] Last Admin: 10/31/16 17:55 Dose: 10 mg Carvedilol (Coreg) 3.125 mg PEG BID [facility] Last Admin: 10/31/16 17:55 Dose: 3.125 mg Clopidogrel Bisulfate (Plavix) 75 mg PEG DAILY [facility] Last Admin: 10/31/16 11:15 Dose: 75 mg Enoxaparin Sodium (Lovenox) 40 mg SC DAILY [facility] Last Admin: 10/31/16 11:14 Dose: 40 mg Famotidine (Pepcid) 20 mg PEG BID [facility] Last Admin: 10/31/16 17:55 Dose: 20 mg Finasteride (Proscar) 5 mg PEG DAILY [facility] Last Admin: 10/31/16 11:16 Dose: 5 mg Levetiracetam (Keppra) 500 mg PEG BID [facility] Last Admin: 10/31/16 17:55 Dose: 500 mg Tamsulosin HCl (Flomax) 0.8 mg PO DAILY [facility] Last Admin: 10/31/16 11:16 Dose: 0.8 mg - Labs Labs: 10/26/16 08:15 10/26/16 08:15 PT 10.6 SECONDS (9.7-12.2) 11/24/15 14:10 INR 1.0 11/24/15 14:10 APTT 25 SECONDS (21-34) 11/24/15 14:10 - Constitutional Appears: Chronically Ill - Head Exam Head Exam: NORMOCEPHALIC - Eye Exam Eye Exam: PERRL - ENT Exam ENT Exam: Mucous Membranes Moist - Respiratory Exam Respiratory Exam: NORMAL BREATHING PATTERN. absent: Wheezes - Cardiovascular Exam Cardiovascular Exam: +S1, +S2 - GI/Abdominal Exam GI & Abdominal Exam: Soft Additional comments: PEG site clean, dri, intact - Extremities Exam Extremities Exam: Normal Capillary Refill - Neurological Exam Neurological Exam: Awake - Psychiatric Exam Psychiatric exam: Flat Affect Assessment and Plan - Assessment and Plan (Free Text) Assessment: 11/01: Patient is afebrile, continue current management. 10/30: Patient is afebrile, no active seizures. continue current management. 10/29: Pt afebrile; non-tachy F/U labs every Thursday Turn Q2 hours- Continue to monitor feeds through PEG @ reduced rate 65cc/hr per Nutrition recommendations suctioning trach routinely Pending senior care facility placement Hypoalbuminemia Prostat 30mL 1x / day Sacral Ulcers 10/30: No acute changes, healing linear 5 cm fissure, continue to turn patient Q2H. 10/29: Healing linear 5 cm fissure with area of erythema Nursing to use barrier to prevent further progression of abrasion Continue to monitor with skin checks and Q2H turning Urinary Retention 10/31: no retention today - [place] catheter functioning with 1600c output today 10/29: condom catheter in place draining straw colored urine; no changes from 10/27: Adequate urinary production. 10/24: baker removed - continue to monitor for urinary retention 577cc urine retained 10/20 Baker placed 10/20, will attempt bladder training and removal in 24 hours Flomax 0.8 mg PO daily Proscar 5mg PO daily Bethanecol 10 mg PO TID monitor I's and O's Failure to thrive 10/31: continue current tube feedings 10/29: Tube feedings in place, will continue with current management Previous note: Continuous Tube feeds at 65cc/hr goal per nutrition recommendations with 300cc of free water flush q8H Measure weight weekly. Continue to monitor Respiratory failure 10/31: on trach - respiratory. normal breathing pattern 10/30: breath sounds were clear 10/29: No rales noted on exam Trach collar in place, with some secretions, will suction when needed, continue with current management. Previous note Continue Current management of trach collar and secretions- continue to suction as needed CAD (coronary artery disease) s/p cardiac stents on 06/13/15 ASA 81mg via PEG daily - renewed 10/20 Coreg 3.125mg PEG BID Plavix 75mg via PEG daily Seizures Keppra 500mg PEG BID for seizure prophylaxis Lower extremity edema giving one dose lasix 40mg via PEG today Prophylactic measure Pepcid 20 mg PEG daily Lovenox 30mg SC daily [facility] <Donnell Ying M - Last Filed: 11/01/16 16:43> Objective - Vital Signs/Intake and Output Vital Signs (last 24 hours): Temp Pulse Resp BP Pulse Ox 98 F 80 20 114/75 97 11/01/16 07:46 11/01/16 09:58 11/01/16 07:46 11/01/16 07:46 11/01/16 07:46 Intake and Output: 11/01/16 11/01/16 06:59 18:59 Intake Total 1690 Balance 1690 - Medications Medications: Current Medications Acetaminophen (Tylenol 325mg Tab) 650 mg PO Q6 PRN PRN Reason: Fever >100.4 F Last Admin: 10/08/16 10:12 Dose: 650 mg Aspirin (Aspirin Chewable) 81 mg PEG DAILY [facility] Last Admin: 11/01/16 10:00 Dose: 81 mg Bethanechol Chloride (Urecholine) 10 mg PO TID [facility] Last Admin: 11/01/16 14:00 Dose: 10 mg Carvedilol (Coreg) 3.125 mg PEG BID [facility] Last Admin: 11/01/16 10:05 Dose: 3.125 mg Clopidogrel Bisulfate (Plavix) 75 mg PEG DAILY [facility] Last Admin: 11/01/16 10:00 Dose: 75 mg Enoxaparin Sodium (Lovenox) 40 mg SC DAILY [facility] Last Admin: 11/01/16 10:00 Dose: 40 mg Famotidine (Pepcid) 20 mg PEG BID [facility] Last Admin: 11/01/16 10:00 Dose: 20 mg Finasteride (Proscar) 5 mg PEG DAILY [facility] Last Admin: 11/01/16 10:00 Dose: 5 mg Levetiracetam (Keppra) 500 mg PEG BID [facility] Last Admin: 11/01/16 10:00 Dose: 500 mg Tamsulosin HCl (Flomax) 0.8 mg PO DAILY [facility] Last Admin: 11/01/16 10:00 Dose: 0.8 mg - Labs Labs: 10/26/16 08:15 10/26/16 08:15 PT 10.6 SECONDS (9.7-12.2) 11/24/15 14:10 INR 1.0 11/24/15 14:10 APTT 25 SECONDS (21-34) 11/24/15 14:10 Attending/Attestation - Attestation I have personally seen and examined this patient.: Yes I have fully participated in the care of the patient.: Yes I have reviewed all pertinent clinical information, including history, physical exam and plan: Yes Notes (Text): 11/01/16 16:42 Patient was seen and examined at bedside There is no change in clinical condition Continue current management Turn and position every 2 hours
[2016-11-01] MEDS: levETIRAcetam 100 mg/ml (5ml) Oral Syringe PEG SCH ×2 (10:00→18:31)
[2016-11-01] MEDS: Enoxaparin 40 mg Syringe SC SCH (10:00)
--- NOTE | 2016-11-02 01:38 | CP.PCM.PN ---
<AnkitaMee - Last Filed: 11/02/16 01:36> Subjective - Date & Time of Evaluation Date of Evaluation: 11/02/16 Time of Evaluation: 01:36 - Subjective Subjective: Patient examined at bedside. No acute events per nursing. Trach collar and PEG in place, functioning. Condom catheter in place. Good urine output. Objective - Vital Signs/Intake and Output Vital Signs (last 24 hours): Temp Pulse Resp BP Pulse Ox 97.5 F L 81 20 111/73 100 11/02/16 00:00 11/02/16 00:00 11/02/16 00:00 11/02/16 00:00 11/02/16 00:00 Intake and Output: 11/01/16 11/02/16 18:59 06:59 Intake Total 900 900 Balance 900 900 - Medications Medications: Current Medications Acetaminophen (Tylenol 325mg Tab) 650 mg PO Q6 PRN PRN Reason: Fever >100.4 F Last Admin: 10/08/16 10:12 Dose: 650 mg Aspirin (Aspirin Chewable) 81 mg PEG DAILY [facility] Last Admin: 11/01/16 10:00 Dose: 81 mg Bethanechol Chloride (Urecholine) 10 mg PO TID [facility] Last Admin: 11/01/16 18:33 Dose: 10 mg Carvedilol (Coreg) 3.125 mg PEG BID [facility] Last Admin: 11/01/16 18:31 Dose: Not Given Clopidogrel Bisulfate (Plavix) 75 mg PEG DAILY [facility] Last Admin: 11/01/16 10:00 Dose: 75 mg Enoxaparin Sodium (Lovenox) 40 mg SC DAILY [facility] Last Admin: 11/01/16 10:00 Dose: 40 mg Famotidine (Pepcid) 20 mg PEG BID [facility] Last Admin: 11/01/16 18:32 Dose: 20 mg Finasteride (Proscar) 5 mg PEG DAILY [facility] Last Admin: 11/01/16 10:00 Dose: 5 mg Levetiracetam (Keppra) 500 mg PEG BID [facility] Last Admin: 11/01/16 18:31 Dose: 500 mg Tamsulosin HCl (Flomax) 0.8 mg PO DAILY [facility] Last Admin: 11/01/16 10:00 Dose: 0.8 mg - Labs Labs: 10/26/16 08:15 10/26/16 08:15 PT 10.6 SECONDS (9.7-12.2) 11/24/15 14:10 INR 1.0 11/24/15 14:10 APTT 25 SECONDS (21-34) 11/24/15 14:10 - Constitutional Appears: Chronically Ill - Head Exam Head Exam: NORMOCEPHALIC - Eye Exam Eye Exam: PERRL - ENT Exam ENT Exam: Mucous Membranes Moist - Respiratory Exam Respiratory Exam: NORMAL BREATHING PATTERN - Cardiovascular Exam Cardiovascular Exam: +S1, +S2 - GI/Abdominal Exam GI & Abdominal Exam: Soft, Normal Bowel Sounds Additional comments: PEG site c/d/i - Extremities Exam Extremities Exam: Normal Capillary Refill - Neurological Exam Neurological Exam: Awake - Psychiatric Exam Psychiatric exam: Flat Affect - Skin Skin Exam: Normal Color Assessment and Plan - Assessment and Plan (Free Text) Assessment: 11/02: Continue current management. Afebrile. 11/01: Patient is afebrile, continue current management. 10/30: Patient is afebrile, no active seizures. continue current management. 10/29: Pt afebrile; non-tachy F/U labs every Thursday Turn Q2 hours- Continue to monitor feeds through PEG @ reduced rate 65cc/hr per Nutrition recommendations suctioning trach routinely Pending long-term facility placement Hypoalbuminemia Prostat 30mL 1x / day Sacral Ulcers 10/30: No acute changes, healing linear 5 cm fissure, continue to turn patient Q2H. 10/29: Healing linear 5 cm fissure with area of erythema Nursing to use barrier to prevent further progression of abrasion Continue to monitor with skin checks and Q2H turning Urinary Retention 10/31: no retention today - [place] catheter functioning with 1600c output today 10/29: condom catheter in place draining straw colored urine; no changes from 10/27: Adequate urinary production. 10/24: baker removed - continue to monitor for urinary retention 577cc urine retained 10/20 Baker placed 10/20, will attempt bladder training and removal in 24 hours Flomax 0.8 mg PO daily Proscar 5mg PO daily Bethanecol 10 mg PO TID monitor I's and O's Failure to thrive 10/31: continue current tube feedings 10/29: Tube feedings in place, will continue with current management Previous note: Continuous Tube feeds at 65cc/hr goal per nutrition recommendations with 300cc of free water flush q8H Measure weight weekly. Continue to monitor Respiratory failure 10/31: on trach - respiratory. normal breathing pattern 10/30: breath sounds were clear 10/29: No rales noted on exam Trach collar in place, with some secretions, will suction when needed, continue with current management. Previous note Continue Current management of trach collar and secretions- continue to suction as needed CAD (coronary artery disease) s/p cardiac stents on 06/13/15 ASA 81mg via PEG daily - renewed 10/20 Coreg 3.125mg PEG BID Plavix 75mg via PEG daily Seizures Keppra 500mg PEG BID for seizure prophylaxis Lower extremity edema giving one dose lasix 40mg via PEG today Prophylactic measure Pepcid 20 mg PEG daily Lovenox 30mg SC daily [facility] <Donnell Ying - Last Filed: 11/02/16 15:07> Objective - Vital Signs/Intake and Output Vital Signs (last 24 hours): Temp Pulse Resp BP Pulse Ox 97.9 F 96 H 20 123/84 96 11/02/16 07:53 11/02/16 07:53 11/02/16 07:53 11/02/16 07:53 11/02/16 07:53 Intake and Output: 11/02/16 11/02/16 06:59 18:59 Intake Total 900 770 Output Total 200 Balance 900 570 - Medications Medications: Current Medications Acetaminophen (Tylenol 325mg Tab) 650 mg PO Q6 PRN PRN Reason: Fever >100.4 F Last Admin: 10/08/16 10:12 Dose: 650 mg Aspirin (Aspirin Chewable) 81 mg PEG DAILY [facility] Last Admin: 11/02/16 10:09 Dose: 81 mg Bethanechol Chloride (Urecholine) 10 mg PO TID [facility] Last Admin: 11/02/16 13:34 Dose: 10 mg Carvedilol (Coreg) 3.125 mg PEG BID [facility] Last Admin: 11/02/16 10:10 Dose: 3.125 mg Clopidogrel Bisulfate (Plavix) 75 mg PEG DAILY [facility] Last Admin: 11/02/16 10:10 Dose: 75 mg Enoxaparin Sodium (Lovenox) 40 mg SC DAILY [facility] Last Admin: 11/02/16 10:08 Dose: 40 mg Famotidine (Pepcid) 20 mg PEG BID [facility] Last Admin: 11/02/16 10:10 Dose: 20 mg Finasteride (Proscar) 5 mg PEG DAILY [facility] Last Admin: 11/02/16 10:10 Dose: 5 mg Levetiracetam (Keppra) 500 mg PEG BID [facility] Last Admin: 11/02/16 10:10 Dose: 500 mg Tamsulosin HCl (Flomax) 0.8 mg PO DAILY [facility] Last Admin: 11/02/16 10:10 Dose: 0.8 mg - Labs Labs: 10/26/16 08:15 10/26/16 08:15 PT 10.6 SECONDS (9.7-12.2) 11/24/15 14:10 INR 1.0 11/24/15 14:10 APTT 25 SECONDS (21-34) 11/24/15 14:10 Attending/Attestation - Attestation I have personally seen and examined this patient.: Yes I have fully participated in the care of the patient.: Yes I have reviewed all pertinent clinical information, including history, physical exam and plan: Yes Notes (Text): 11/02/16 15:06 Patient was seen and examined at bedside There is no change in clinical condition Continue current management Turn and position the patient every 2 hours to prevent decubitus ulcers Discussed with nursing staff
[2016-11-02] MEDS: Enoxaparin 40 mg Syringe SC SCH (10:08)
[2016-11-02] MEDS: levETIRAcetam 100 mg/ml (5ml) Oral Syringe PEG SCH ×2 (10:10→17:38)
[2016-11-03] MEDS: levETIRAcetam 100 mg/ml (5ml) Oral Syringe PEG SCH ×2 (10:54→19:01)
[2016-11-03] MEDS: Enoxaparin 40 mg Syringe SC SCH (10:55)
--- NOTE | 2016-11-03 11:07 | CP.PCM.PN ---
Subjective - Date & Time of Evaluation Date of Evaluation: 11/03/16 Time of Evaluation: 09:00 - Subjective Subjective: Pgy[facility] resident on hospitalist service Patient seen and examined at bedside this AM. No acute changes overnight per nursing. Medications renewed - PEG, trach and [place] catheter all in place and functioning. Objective - Vital Signs/Intake and Output Vital Signs (last 24 hours): Temp Pulse Resp BP Pulse Ox 98.3 F 76 20 103/67 100 11/03/16 08:41 11/03/16 08:41 11/03/16 08:41 11/03/16 08:41 11/03/16 08:41 Intake and Output: 11/03/16 11/03/16 06:59 18:59 Intake Total 820 790 Output Total 250 200 Balance 570 590 - Medications Medications: Current Medications Acetaminophen (Tylenol 325mg Tab) 650 mg PO Q6 PRN PRN Reason: Fever >100.4 F Last Admin: 10/08/16 10:12 Dose: 650 mg Aspirin (Aspirin Chewable) 81 mg PEG DAILY [facility] Last Admin: 11/03/16 10:55 Dose: 81 mg Bethanechol Chloride (Urecholine) 10 mg PO TID [facility] Last Admin: 11/03/16 10:54 Dose: 10 mg Carvedilol (Coreg) 3.125 mg PEG BID [facility] Last Admin: 11/03/16 10:54 Dose: 3.125 mg Clopidogrel Bisulfate (Plavix) 75 mg PEG DAILY [facility] Last Admin: 11/03/16 10:55 Dose: 75 mg Enoxaparin Sodium (Lovenox) 40 mg SC DAILY [facility] Famotidine (Pepcid) 20 mg PEG BID [facility] Last Admin: 11/03/16 10:55 Dose: 20 mg Finasteride (Proscar) 5 mg PEG DAILY [facility] Last Admin: 11/03/16 10:55 Dose: 5 mg Levetiracetam (Keppra) 500 mg PEG BID [facility] Last Admin: 11/03/16 10:54 Dose: 500 mg Tamsulosin HCl (Flomax) 0.8 mg PO DAILY [facility] Last Admin: 11/03/16 10:54 Dose: 0.8 mg - Labs Labs: 10/26/16 08:15 10/26/16 08:15 PT 10.6 SECONDS (9.7-12.2) 11/24/15 14:10 INR 1.0 11/24/15 14:10 APTT 25 SECONDS (21-34) 11/24/15 14:10 - Constitutional Appears: No Acute Distress, Chronically Ill - Head Exam Head Exam: NORMOCEPHALIC - Eye Exam Eye Exam: PERRL - ENT Exam ENT Exam: Mucous Membranes Moist, Normal Oropharynx - Respiratory Exam Respiratory Exam: NORMAL BREATHING PATTERN - Cardiovascular Exam Cardiovascular Exam: +S1, +S2 - GI/Abdominal Exam GI & Abdominal Exam: Soft, Normal Bowel Sounds. absent: Tenderness Additional comments: PEG site c/d/i - Exam Exam: NORMAL INSPECTION Additional comments: condom catheter in place / functioning - Extremities Exam Extremities Exam: Normal Capillary Refill - Neurological Exam Neurological Exam: Awake - Psychiatric Exam Psychiatric exam: Flat Affect - Skin Skin Exam: Dry Assessment and Plan - Assessment and Plan (Free Text) Assessment: Anoxic encephalopathy 11/03: weekly labs - f/u CBC and CMP from today 10/30: Patient is afebrile, no active seizures. continue current management. 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 10/29: Healing linear 5 cm fissure with area of erythema Nursing to use barrier to prevent further progression of abrasion Continue to monitor with skin checks and Q2H turning Urinary Retention 11/03: no urinary retention, condom catheter still functional; flomax and bethanechol renewed today 10/31: no retention today - [place] catheter functioning with 1600c output today 10/29: condom catheter in place draining straw colored urine; no changes from 10/27: Adequate urinary production. 10/24: baker removed - continue to monitor for urinary retention 577cc urine retained 10/20 Baker placed 10/20, will attempt bladder training and removal in 24 hours Flomax 0.8 mg PO daily Proscar 5mg PO daily Bethanecol 10 mg PO TID monitor I's and O's Failure to thrive 11/03: c/w PEG tube feeds 10/31: continue current tube feedings 10/29: Tube feedings in place, will continue with current management Previous note: Continuous Tube feeds at 65cc/hr goal per nutrition recommendations with 300cc of free water flush q8H Measure weight weekly. Continue to monitor Respiratory failure 11/03: no changes, trach collar in place - nml pattern 10/31: on trach - respiratory. normal breathing pattern 10/30: breath sounds were clear 10/29: No rales noted on exam Trach collar in place, with some secretions, will suction when needed, continue with current management. Previous note Continue Current management of trach collar and secretions- continue to suction as needed CAD (coronary artery disease) s/p cardiac stents on 06/13/15 ASA 81mg via PEG daily - renewed 11/03 Coreg 3.125mg PEG BID Plavix 75mg via PEG daily Seizures Keppra 500mg PEG BID for seizure prophylaxis Lower extremity edema giving one dose lasix 40mg via PEG today Prophylactic measure Pepcid 20 mg PEG daily Lovenox 40mg SC daily - renewed 11/03 SCDs
[2016-11-03 14:12] LABS: BASO # 0.1 K/uL (0.0-0.2); BASO % 0.8 % (0.0-2.0); EOS # 0.4 K/uL (0.0-0.7); EOS % 5.3 % (0.0-4.0); HEMOGLOBIN 12.3 g/dL (12.0-18.0); LYMPH # 2.4 K/uL (1.0-4.3); LYMPH % 28.2 % (20.0-40.0); MEAN CELL VOLUME 88.2 fL (80.0-94.0); MEAN CORPUSCULAR HEMOGLOBIN 28.3 pg (27.0-31.0); MEAN PLATELET VOLUME 8.8 fL (7.2-11.7); MONO # 0.9 K/uL (0.0-0.8); MONO % 10.2 % (0.0-10.0); NEUT # 4.6 K/uL (1.8-7.0); NEUT % 55.5 % (50.0-75.0); NRBC % 0.1 % (0.0-2.0); RBC 4.34 Mil/uL (4.40-5.90); RED CELL DISTRIBUTION WIDTH 15.4 % (11.5-14.5); WHITE BLOOD COUNT 8.3 K/uL (4.8-10.8)
[2016-11-03 14:21] LABS: ALBUMIN 3.7 g/dL (3.5-5.0)
[2016-11-03 14:23] LABS: GFR NON-AFRICAN AMERICAN > 60
[2016-11-03 14:24] LABS: ALB/GLOB RATIO 0.8 (1.0-2.1); ALT/SGPT 52 U/L (21-72); AST/SGOT 25 U/L (17-59); BLOOD UREA NITROGEN 21 mg/dL (9-20); CALCIUM 8.4 mg/dl (8.6-10.4)
--- NOTE | 2016-11-04 09:49 | CP.PCM.PN ---
Subjective - Date & Time of Evaluation Date of Evaluation: 11/04/16 Time of Evaluation: 09:00 - Subjective Subjective: Dr. Beth's service, progress note: Patient seen and evaluated in room. He has his eyes closed but is resting comfortably on the bed. Unable to obtain history or ROS at this time due to patient's condition. No acute events overnight per nursing staff. Objective - Vital Signs/Intake and Output Vital Signs (last 24 hours): Temp Pulse Resp BP Pulse Ox 98.6 F 84 20 114/70 100 11/04/16 07:58 11/04/16 07:58 11/04/16 07:58 11/04/16 07:58 11/04/16 07:58 Intake and Output: 11/04/16 11/04/16 06:59 18:59 Intake Total 780 780 Output Total 300 300 Balance 480 480 - Medications Medications: Current Medications Acetaminophen (Tylenol 325mg Tab) 650 mg PO Q6 PRN PRN Reason: Fever >100.4 F Last Admin: 10/08/16 10:12 Dose: 650 mg Aspirin (Aspirin Chewable) 81 mg PEG DAILY [facility] Last Admin: 11/03/16 10:55 Dose: 81 mg Bethanechol Chloride (Urecholine) 10 mg PO TID [facility] Last Admin: 11/03/16 19:01 Dose: 10 mg Carvedilol (Coreg) 3.125 mg PEG BID [facility] Last Admin: 11/03/16 19:01 Dose: 3.125 mg Clopidogrel Bisulfate (Plavix) 75 mg PEG DAILY [facility] Last Admin: 11/03/16 10:55 Dose: 75 mg Enoxaparin Sodium (Lovenox) 40 mg SC DAILY [facility] Famotidine (Pepcid) 20 mg PEG BID [facility] Last Admin: 11/03/16 19:02 Dose: 20 mg Finasteride (Proscar) 5 mg PEG DAILY [facility] Last Admin: 11/03/16 10:55 Dose: 5 mg Levetiracetam (Keppra) 500 mg PEG BID [facility] Last Admin: 11/03/16 19:01 Dose: 500 mg Tamsulosin HCl (Flomax) 0.8 mg PO DAILY [facility] Last Admin: 11/03/16 10:54 Dose: 0.8 mg - Labs Labs: 11/03/16 14:03 11/03/16 14:03 PT 10.6 SECONDS (9.7-12.2) 11/24/15 14:10 INR 1.0 11/24/15 14:10 APTT 25 SECONDS (21-34) 11/24/15 14:10 - Constitutional Appears: Chronically Ill - Head Exam Head Exam: ATRAUMATIC, NORMAL INSPECTION, NORMOCEPHALIC - Eye Exam Eye Exam: Normal appearance, PERRL Pupil Exam: NORMAL ACCOMODATION, PERRL - Neck Exam Additional comments: Trach collar in the place with some secretion, no noticeable signs of infection. - Respiratory Exam Respiratory Exam: Clear to Ausculation Bilateral. absent: Rales, Rhonchi, Wheezes - Cardiovascular Exam Cardiovascular Exam: REGULAR RHYTHM, RRR, +S1, +S2. absent: Gallop, Rubs - GI/Abdominal Exam GI & Abdominal Exam: Soft - Skin Skin Exam: Normal Color Assessment and Plan - Assessment and Plan (Free Text) Assessment: Assessment: Anoxic encephalopathy 11/04: labs from yesterday were unremarkable. 11/03: weekly labs - f/u CBC and CMP from today 10/30: Patient is afebrile, no active seizures. continue current management. 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 10/29: Healing linear 5 cm fissure with area of erythema Nursing to use barrier to prevent further progression of abrasion Continue to monitor with skin checks and Q2H turning Urinary Retention 11/04: continue current management, condom cath in place, fucntional, continue medical mangement 11/03: no urinary retention, condom catheter still functional; flomax and bethanechol renewed today 10/31: no retention today - [place] catheter functioning with 1600c output today 10/29: condom catheter in place draining straw colored urine; no changes from 10/27: Adequate urinary production. 10/24: baker removed - continue to monitor for urinary retention 577cc urine retained 10/20 Baker placed 11/28, will attempt bladder training and removal in 24 hours Flomax 0.8 mg PO daily Proscar 5mg PO daily Bethanecol 10 mg PO TID monitor I's and O's Failure to thrive 11/04: continue with PEG feedings 11/03: c/w PEG tube feeds 10/31: continue current tube feedings 10/29: Tube feedings in place, will continue with current management Previous note: Continuous Tube feeds at 65cc/hr goal per nutrition recommendations with 300cc of free water flush q8H Measure weight weekly. Continue to monitor Respiratory failure 11/04: no changes, trach collar in place, 11/03: no changes, trach collar in place - nml pattern 10/31: on trach - respiratory. normal breathing pattern 10/30: breath sounds were clear 10/29: No rales noted on exam Trach collar in place, with some secretions, will suction when needed, continue with current management. Previous note Continue Current management of trach collar and secretions- continue to suction as needed CAD (coronary artery disease) s/p cardiac stents on 06/13/15 ASA 81mg via PEG daily - renewed 11/03 Coreg 3.125mg PEG BID Plavix 75mg via PEG daily Seizures Keppra 500mg PEG BID for seizure prophylaxis Lower extremity edema giving one dose lasix 40mg via PEG today Prophylactic measure Pepcid 20 mg PEG daily Lovenox 40mg SC daily - renewed 11/03 SCDs
[2016-11-04] MEDS: Enoxaparin 40 mg Syringe SC SCH (10:53)
[2016-11-04] MEDS: levETIRAcetam 100 mg/ml (5ml) Oral Syringe PEG SCH ×2 (10:53→18:03)
[2016-11-05] MEDS: levETIRAcetam 100 mg/ml (5ml) Oral Syringe PEG SCH ×2 (10:58→18:22)
[2016-11-05] MEDS: Enoxaparin 40 mg Syringe SC SCH (10:58)
--- NOTE | 2016-11-05 15:11 | CP.PCM.PN ---
Subjective - Date & Time of Evaluation Date of Evaluation: 11/05/16 Time of Evaluation: 09:15 - Subjective Subjective: [facility] resident on hospitalist service Patient seen and examined at bedside this AM - no acute changes overnight or this morning. PEG, trach collar and condom catheter all in place. no acute distress during exam. Objective - Vital Signs/Intake and Output Vital Signs (last 24 hours): Temp Pulse Resp BP Pulse Ox 98.4 F 87 18 111/69 98 11/05/16 08:00 11/05/16 08:00 11/05/16 08:00 11/05/16 08:00 11/05/16 08:00 Intake and Output: 11/05/16 11/05/16 06:59 18:59 Intake Total 1560 Output Total 850 Balance 710 - Medications Medications: Current Medications Aspirin (Aspirin Chewable) 81 mg PEG DAILY [facility] Last Admin: 11/05/16 10:57 Dose: 81 mg Bethanechol Chloride (Urecholine) 10 mg PO TID [facility] Last Admin: 11/05/16 14:46 Dose: 10 mg Carvedilol (Coreg) 3.125 mg PEG BID [facility] Last Admin: 11/05/16 10:57 Dose: 3.125 mg Clopidogrel Bisulfate (Plavix) 75 mg PEG DAILY [facility] Last Admin: 11/05/16 10:57 Dose: 75 mg Enoxaparin Sodium (Lovenox) 40 mg SC DAILY [facility] Last Admin: 11/05/16 10:58 Dose: 40 mg Famotidine (Pepcid) 20 mg PEG BID [facility] Last Admin: 11/05/16 10:57 Dose: 20 mg Finasteride (Proscar) 5 mg PEG DAILY [facility] Last Admin: 11/05/16 10:58 Dose: 5 mg Levetiracetam (Keppra) 500 mg PEG BID [facility] Last Admin: 11/05/16 10:58 Dose: 500 mg Tamsulosin HCl (Flomax) 0.8 mg PO DAILY [facility] Last Admin: 11/05/16 10:58 Dose: 0.8 mg - Labs Labs: 11/03/16 14:03 11/03/16 14:03 PT 10.6 SECONDS (9.7-12.2) 11/24/15 14:10 INR 1.0 11/24/15 14:10 APTT 25 SECONDS (21-34) 11/24/15 14:10 - Constitutional Appears: No Acute Distress, Chronically Ill - Eye Exam Eye Exam: Normal appearance, PERRL - ENT Exam ENT Exam: Mucous Membranes Moist - Respiratory Exam Respiratory Exam: NORMAL BREATHING PATTERN - Cardiovascular Exam Cardiovascular Exam: +S1, +S2 - GI/Abdominal Exam GI & Abdominal Exam: Soft, Normal Bowel Sounds. absent: Tenderness Additional comments: PEG site c/d/i - Neurological Exam Neurological Exam: Awake - Psychiatric Exam Psychiatric exam: Flat Affect - Skin Skin Exam: Dry Assessment and Plan - Assessment and Plan (Free Text) Assessment: Anoxic encephalopathy 11/05: no acute changes at this time 11/04: labs from yesterday were unremarkable. 11/03: weekly labs - f/u CBC and CMP from today 10/30: Patient is afebrile, no active seizures. continue current management. 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 10/29: Healing linear 5 cm fissure with area of erythema Nursing to use barrier to prevent further progression of abrasion Continue to monitor with skin checks and Q2H turning Urinary Retention 11/05: no retention at this time - c/w condom catheter and urine output monitoring 11/04: continue current management, condom cath in place, fucntional, continue medical mangement 11/03: no urinary retention, condom catheter still functional; flomax and bethanechol renewed today 10/31: no retention today - [place] catheter functioning with 1600c output today 10/29: condom catheter in place draining straw colored urine; no changes from 10/27: Adequate urinary production. 10/24: baker removed - continue to monitor for urinary retention 577cc urine retained 10/20 Baker placed 10/20, will attempt bladder training and removal in 24 hours Flomax 0.8 mg PO daily Proscar 5mg PO daily Bethanecol 10 mg PO TID monitor I's and O's Failure to thrive 11/04: continue with PEG feedings 11/03: c/w PEG tube feeds 10/31: continue current tube feedings 10/29: Tube feedings in place, will continue with current management Previous note: Continuous Tube feeds at 65cc/hr goal per nutrition recommendations with 300cc of free water flush q8H Measure weight weekly. Continue to monitor Respiratory failure 11/05: no changes, trach collar in place, 11/03: no changes, trach collar in place - nml pattern 10/31: on trach - respiratory. normal breathing pattern 10/30: breath sounds were clear 10/29: No rales noted on exam Trach collar in place, with some secretions, will suction when needed, continue with current management. Previous note Continue Current management of trach collar and secretions- continue to suction as needed CAD (coronary artery disease) s/p cardiac stents on 06/13/15 ASA 81mg via PEG daily - renewed 11/03 Coreg 3.125mg PEG BID Plavix 75mg via PEG daily Seizures Keppra 500mg PEG BID for seizure prophylaxis Lower extremity edema giving one dose lasix 40mg via PEG today Prophylactic measure Pepcid 20 mg PEG daily Lovenox 40mg SC daily - renewed 11/03 SCDs
--- NOTE | 2016-11-06 09:26 | CP.PCM.PN ---
Subjective - Date & Time of Evaluation Date of Evaluation: 11/06/16 Time of Evaluation: 13:00 - Subjective Subjective: Dr. Beth service, progress note: Patient seen and evaluated in room. He is lieing in bed with his eyes open. Unable to obtain ROS or history from patient due to his condition. Objective - Vital Signs/Intake and Output Vital Signs (last 24 hours): Temp Pulse Resp BP Pulse Ox 98.2 F 89 20 109/69 98 11/06/16 08:00 11/06/16 08:00 11/06/16 08:00 11/06/16 08:00 11/06/16 08:00 Intake and Output: 11/06/16 11/06/16 06:59 18:59 Intake Total 1560 Output Total 100 Balance 1460 - Medications Medications: Current Medications Aspirin (Aspirin Chewable) 81 mg PEG DAILY [facility] Last Admin: 11/05/16 10:57 Dose: 81 mg Bethanechol Chloride (Urecholine) 10 mg PO TID [facility] Last Admin: 11/05/16 18:22 Dose: 10 mg Carvedilol (Coreg) 3.125 mg PEG BID [facility] Last Admin: 11/05/16 18:20 Dose: 3.125 mg Clopidogrel Bisulfate (Plavix) 75 mg PEG DAILY [facility] Last Admin: 11/05/16 10:57 Dose: 75 mg Enoxaparin Sodium (Lovenox) 40 mg SC DAILY [facility] Last Admin: 11/05/16 10:58 Dose: 40 mg Famotidine (Pepcid) 20 mg PEG BID [facility] Last Admin: 11/05/16 18:20 Dose: 20 mg Finasteride (Proscar) 5 mg PEG DAILY [facility] Last Admin: 11/05/16 10:58 Dose: 5 mg Levetiracetam (Keppra) 500 mg PEG BID [facility] Last Admin: 11/05/16 18:22 Dose: 500 mg Tamsulosin HCl (Flomax) 0.8 mg PO DAILY [facility] Last Admin: 11/05/16 10:58 Dose: 0.8 mg - Labs Labs: 11/03/16 14:03 11/03/16 14:03 PT 10.6 SECONDS (9.7-12.2) 11/24/15 14:10 INR 1.0 11/24/15 14:10 APTT 25 SECONDS (21-34) 11/24/15 14:10 - Constitutional Appears: Non-toxic, No Acute Distress - Head Exam Head Exam: ATRAUMATIC, NORMAL INSPECTION - Eye Exam Eye Exam: Normal appearance, PERRL Pupil Exam: NORMAL ACCOMODATION - ENT Exam Additional comments: trach collar in place, functional, thick secretions. - Respiratory Exam Respiratory Exam: Clear to Ausculation Bilateral. absent: Rales, Rhonchi, Wheezes - Cardiovascular Exam Cardiovascular Exam: REGULAR RHYTHM, RRR, +S1, +S2. absent: Gallop, Rubs - GI/Abdominal Exam GI & Abdominal Exam: Soft, Normal Bowel Sounds Additional comments: PEG tube in place, functional. condom catheter in place, draining straw colored urine. - Extremities Exam Extremities Exam: Normal Inspection. absent: Pedal Edema - Skin Skin Exam: Normal Color, Warm Assessment and Plan - Assessment and Plan (Free Text) Assessment: Anoxic encephalopathy 11/06: No acute changes 11/05: no acute changes at this time 11/04: labs from yesterday were unremarkable. 11/03: weekly labs - f/u CBC and CMP from today 10/30: Patient is afebrile, no active seizures. continue current management. 10/29: Pt afebrile; non-tachy F/U labs every Thursday Turn Q2 hours- Continue to monitor feeds through PEG @ reduced rate 65cc/hr per Nutrition recommendations suctioning trach routinely Pending escort blind facility placement Hypoalbuminemia Prostat 30mL 1x / day Sacral Ulcers 11/06: No changes, c/w wound care 11/05; c/w wound care management 11/03: no changes, c/w wound care 10/30: No acute changes, healing linear 5 cm fissure, continue to turn patient Q2H. 10/29: Healing linear 5 cm fissure with area of erythema Nursing to use barrier to prevent further progression of abrasion Continue to monitor with skin checks and Q2H turning Urinary Retention 11/06: No retention noted, c/w condom catheter 11/05: no retention at this time - c/w condom catheter and urine output monitoring 11/04: continue current management, condom cath in place, fucntional, continue medical mangement 11/03: no urinary retention, condom catheter still functional; flomax and bethanechol renewed today 10/31: no retention today - [place] catheter functioning with 1600c output today 10/29: condom catheter in place draining straw colored urine; no changes from 10/27: Adequate urinary production. 10/24: baker removed - continue to monitor for urinary retention 577cc urine retained 10/20 Baker placed 10/20, will attempt bladder training and removal in 24 hours Flomax 0.8 mg PO daily Proscar 5mg PO daily Bethanecol 10 mg PO TID monitor I's and O's Failure to thrive 11/04: continue with PEG feedings 11/03: c/w PEG tube feeds 10/31: continue current tube feedings 10/29: Tube feedings in place, will continue with current management Previous note: Continuous Tube feeds at 65cc/hr goal per nutrition recommendations with 300cc of free water flush q8H Measure weight weekly. Continue to monitor Respiratory failure 11/05: no changes, trach collar in place, 11/03: no changes, trach collar in place - nml pattern 10/31: on trach - respiratory. normal breathing pattern 10/30: breath sounds were clear 10/29: No rales noted on exam Trach collar in place, with some secretions, will suction when needed, continue with current management. Previous note Continue Current management of trach collar and secretions- continue to suction as needed CAD (coronary artery disease) s/p cardiac stents on 06/13/15 ASA 81mg via PEG daily - renewed 11/03 Coreg 3.125mg PEG BID Plavix 75mg via PEG daily Seizures Keppra 500mg PEG BID for seizure prophylaxis Lower extremity edema giving one dose lasix 40mg via PEG today Prophylactic measure Pepcid 20 mg PEG daily Lovenox 40mg SC daily - renewed 11/03 SCDs
[2016-11-06] MEDS: Enoxaparin 40 mg Syringe SC SCH (11:00)
[2016-11-06] MEDS: levETIRAcetam 100 mg/ml (5ml) Oral Syringe PEG SCH ×2 (11:12→18:37)
[2016-11-07] MEDS: levETIRAcetam 100 mg/ml (5ml) Oral Syringe PEG SCH ×2 (10:41→18:16)
[2016-11-07] MEDS: Enoxaparin 40 mg Syringe SC SCH (10:41)
--- NOTE | 2016-11-07 15:47 | CP.PCM.PN ---
Subjective - Date & Time of Evaluation Date of Evaluation: 11/07/16 Time of Evaluation: 09:30 - Subjective Subjective: PGY3 resident on hospitalist service Patient seen and examined at bedside this AM. No acute changes over night per nursing. Seen at bedside, lying comfortably in bed with trach collar, peg tube and condom catheter all c/d/i and functioning. Objective - Vital Signs/Intake and Output Vital Signs (last 24 hours): Temp Pulse Resp BP Pulse Ox 98.5 F 75 20 126/86 100 11/07/16 07:58 11/07/16 07:58 11/07/16 07:58 11/07/16 07:58 11/07/16 07:58 Intake and Output: 11/07/16 11/07/16 06:59 18:59 Intake Total 1760 Output Total 750 500 Balance 1010 -500 - Medications Medications: Current Medications Aspirin (Aspirin Chewable) 81 mg PEG DAILY [facility] Last Admin: 11/07/16 10:41 Dose: 81 mg Bethanechol Chloride (Urecholine) 10 mg PO TID [facility] Last Admin: 11/07/16 14:56 Dose: 10 mg Carvedilol (Coreg) 3.125 mg PEG BID [facility] Last Admin: 11/07/16 10:42 Dose: 3.125 mg Clopidogrel Bisulfate (Plavix) 75 mg PEG DAILY [facility] Last Admin: 11/07/16 10:42 Dose: 75 mg Enoxaparin Sodium (Lovenox) 40 mg SC DAILY [facility] Last Admin: 11/07/16 10:41 Dose: 40 mg Famotidine (Pepcid) 20 mg PEG BID [facility] Last Admin: 11/07/16 10:42 Dose: 20 mg Finasteride (Proscar) 5 mg PEG DAILY [facility] Last Admin: 11/07/16 10:43 Dose: 5 mg Levetiracetam (Keppra) 500 mg PEG BID [facility] Last Admin: 11/07/16 10:41 Dose: 500 mg Tamsulosin HCl (Flomax) 0.8 mg PO DAILY [facility] Last Admin: 11/07/16 10:42 Dose: 0.8 mg - Labs Labs: 11/03/16 14:03 11/03/16 14:03 PT 10.6 SECONDS (9.7-12.2) 11/24/15 14:10 INR 1.0 11/24/15 14:10 APTT 25 SECONDS (21-34) 11/24/15 14:10 - Constitutional Appears: No Acute Distress, Chronically Ill - Head Exam Head Exam: NORMOCEPHALIC - Eye Exam Eye Exam: Normal appearance, PERRL - ENT Exam ENT Exam: Mucous Membranes Moist - Respiratory Exam Respiratory Exam: NORMAL BREATHING PATTERN - Cardiovascular Exam Cardiovascular Exam: REGULAR RHYTHM, +S1, +S2 - GI/Abdominal Exam GI & Abdominal Exam: Soft, Normal Bowel Sounds - Neurological Exam Neurological Exam: Awake - Psychiatric Exam Psychiatric exam: Flat Affect Assessment and Plan - Assessment and Plan (Free Text) Assessment: Anoxic encephalopathy 11/07: No acute changes, weekly labs on mondays: no acute changes at this time 11/04: labs from yesterday were unremarkable. 11/03: weekly labs - f/u CBC and CMP from today 10/30: Patient is afebrile, no active seizures. continue current management. 10/29: Pt afebrile; non-tachy F/U labs every Thursday Turn Q2 hours- Continue to monitor feeds through PEG @ reduced rate 65cc/hr per Nutrition recommendations suctioning trach routinely Pending [facility] facility placement Hypoalbuminemia Prostat 30mL 1x / day Sacral Ulcers 11/07: c/w wound care 11/05; c/w wound care management 11/03: no changes, c/w wound care 10/30: No acute changes, healing linear 5 cm fissure, continue to turn patient Q2H. 10/29: Healing linear 5 cm fissure with area of erythema Nursing to use barrier to prevent further progression of abrasion Continue to monitor with skin checks and Q2H turning Urinary Retention 11/07: c/w condom catheter - 500ml today, continue to monitor 11/05: no retention at this time - c/w condom catheter and urine output monitoring 11/04: continue current management, condom cath in place, fucntional, continue medical mangement 11/03: no urinary retention, condom catheter still functional; flomax and bethanechol renewed today 10/31: no retention today - [place] catheter functioning with 1600c output today 10/29: condom catheter in place draining straw colored urine; no changes from 10/27: Adequate urinary production. 10/24: baker removed - continue to monitor for urinary retention 577cc urine retained 10/20 Baker placed 10/20, will attempt bladder training and removal in 24 hours Flomax 0.8 mg PO daily Proscar 5mg PO daily Bethanecol 10 mg PO TID monitor I's and O's Failure to thrive 11/07: tube feeds as scheduled 11/04: continue with PEG feedings 11/03: c/w PEG tube feeds 10/31: continue current tube feedings 10/29: Tube feedings in place, will continue with current management Previous note: Continuous Tube feeds at 65cc/hr goal per nutrition recommendations with 300cc of free water flush q8H Measure weight weekly. Continue to monitor Respiratory failure 11/07: trach collar in place - normal resp pattern 11/05: no changes, trach collar in place, 11/03: no changes, trach collar in place - nml pattern 10/31: on trach - respiratory. normal breathing pattern 10/30: breath sounds were clear 10/29: No rales noted on exam Trach collar in place, with some secretions, will suction when needed, continue with current management. Previous note Continue Current management of trach collar and secretions- continue to suction as needed CAD (coronary artery disease) s/p cardiac stents on 06/13/15 ASA 81mg via PEG daily - renewed 11/03 Coreg 3.125mg PEG BID Plavix 75mg via PEG daily Seizures Keppra 500mg PEG BID for seizure prophylaxis Lower extremity edema giving one dose lasix 40mg via PEG today Prophylactic measure Pepcid 20 mg PEG daily Lovenox 40mg SC daily - renewed 11/03 SCDs
--- NOTE | 2016-11-08 04:15 | CP.PCM.PN ---
<Judith Forrester - Last Filed: 11/08/16 04:09> Subjective - Date & Time of Evaluation Date of Evaluation: 11/08/16 Time of Evaluation: 04:15 - Subjective Subjective: Patient seen and examined. Patient in no acute distress, resting comfortably. Patient tolerating trach collar well. Objective - Vital Signs/Intake and Output Vital Signs (last 24 hours): Temp Pulse Resp BP Pulse Ox 98.2 F 80 20 111/66 100 11/08/16 00:00 11/08/16 00:00 11/08/16 00:00 11/08/16 00:00 11/08/16 00:00 Intake and Output: 11/07/16 11/08/16 18:59 06:59 Intake Total 780 780 Output Total 500 200 Balance 280 580 - Medications Medications: Current Medications Aspirin (Aspirin Chewable) 81 mg PEG DAILY [facility] Last Admin: 11/07/16 10:41 Dose: 81 mg Bethanechol Chloride (Urecholine) 10 mg PO TID [facility] Last Admin: 11/07/16 18:16 Dose: 10 mg Carvedilol (Coreg) 3.125 mg PEG BID [facility] Last Admin: 11/07/16 18:19 Dose: 3.125 mg Clopidogrel Bisulfate (Plavix) 75 mg PEG DAILY [facility] Last Admin: 11/07/16 10:42 Dose: 75 mg Enoxaparin Sodium (Lovenox) 40 mg SC DAILY [facility] Last Admin: 11/07/16 10:41 Dose: 40 mg Famotidine (Pepcid) 20 mg PEG BID [facility] Last Admin: 11/07/16 18:16 Dose: 20 mg Finasteride (Proscar) 5 mg PEG DAILY [facility] Last Admin: 11/07/16 10:43 Dose: 5 mg Levetiracetam (Keppra) 500 mg PEG BID [facility] Last Admin: 11/07/16 18:16 Dose: 500 mg Tamsulosin HCl (Flomax) 0.8 mg PO DAILY [facility] Last Admin: 11/07/16 10:42 Dose: 0.8 mg - Labs Labs: 11/03/16 14:03 11/03/16 14:03 PT 10.6 SECONDS (9.7-12.2) 11/24/15 14:10 INR 1.0 11/24/15 14:10 APTT 25 SECONDS (21-34) 11/24/15 14:10 - Constitutional Appears: No Acute Distress, Chronically Ill - Head Exam Head Exam: ATRAUMATIC - Eye Exam Eye Exam: EOMI, Normal appearance - ENT Exam ENT Exam: Mucous Membranes Moist - Neck Exam Additional comments: trach - Respiratory Exam Respiratory Exam: NORMAL BREATHING PATTERN - Cardiovascular Exam Cardiovascular Exam: +S1, +S2 - GI/Abdominal Exam GI & Abdominal Exam: Normal Bowel Sounds Additional comments: PEG - Exam Additional comments: condom catheter - Neurological Exam Neurological Exam: Awake - Skin Skin Exam: Normal Color, Warm Assessment and Plan - Assessment and Plan (Free Text) Assessment: Anoxic encephalopathy 11/08: No acute changes, weekly labs on mondays Turn Q2 hours- Continue to monitor feeds through PEG @ reduced rate 65cc/hr per Nutrition recommendations suctioning trach routinely 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 10/29: Healing linear 5 cm fissure with area of erythema Nursing to use barrier to prevent further progression of abrasion Continue to monitor with skin checks and Q2H turning Urinary Retention 11/08: c/w condom catheter - 700ml today, continue to monitor 11/05: no retention at this time - c/w condom catheter and urine output monitoring 11/04: continue current management, condom cath in place, fucntional, continue medical mangement 11/03: no urinary retention, condom catheter still functional; flomax and bethanechol renewed today 10/31: no retention today - [place] catheter functioning with 1600c output today 10/29: condom catheter in place draining straw colored urine; no changes from 10/27: Adequate urinary production. 10/24: baker removed - continue to monitor for urinary retention 577cc urine retained 10/20 Baker placed 10/20, will attempt bladder training and removal in 24 hours Flomax 0.8 mg PO daily Proscar 5mg PO daily Bethanecol 10 mg PO TID monitor I's and O's Failure to thrive 11/08: tube feeds as scheduled Previous note: Continuous Tube feeds at 65cc/hr goal per nutrition recommendations with 300cc of free water flush q8H Measure weight weekly. Continue to monitor Respiratory failure 11/08: trach collar in place - normal resp pattern Trach collar in place, with some secretions, will suction when needed, continue with current management. Previous note Continue Current management of trach collar and secretions- continue to suction as needed CAD (coronary artery disease) s/p cardiac stents on 06/13/15 ASA 81mg via PEG daily - renewed 11/03 Coreg 3.125mg PEG BID Plavix 75mg via PEG daily Seizures Keppra 500mg PEG BID for seizure prophylaxis Lower extremity edema will give lasix via PEG as needed Prophylactic measure Pepcid 20 mg PEG daily Lovenox 40mg SC daily - renewed 11/03 SCDs <Colleen Braswell V - Last Filed: 11/09/16 23:18> Objective - Vital Signs/Intake and Output Vital Signs (last 24 hours): Temp Pulse Resp BP Pulse Ox 98.4 F 86 20 146/95 H 96 11/09/16 16:00 11/09/16 16:00 11/09/16 16:00 11/09/16 16:00 11/09/16 16:00 Intake and Output: 11/09/16 11/10/16 18:59 06:59 Output Total 200 Balance -200 - Medications Medications: Current Medications Aspirin (Aspirin Chewable) 81 mg PEG DAILY [facility] Last Admin: 11/09/16 11:02 Dose: 81 mg Bethanechol Chloride (Urecholine) 10 mg PO TID [facility] Last Admin: 11/09/16 19:52 Dose: 10 mg Carvedilol (Coreg) 3.125 mg PEG BID [facility] Last Admin: 11/09/16 18:11 Dose: 3.125 mg Clopidogrel Bisulfate (Plavix) 75 mg PEG DAILY [facility] Last Admin: 11/09/16 11:02 Dose: 75 mg Enoxaparin Sodium (Lovenox) 40 mg SC DAILY [facility] Last Admin: 11/09/16 11:03 Dose: 40 mg Famotidine (Pepcid) 20 mg PEG BID [facility] Last Admin: 11/09/16 18:11 Dose: 20 mg Finasteride (Proscar) 5 mg PEG DAILY [facility] Last Admin: 11/09/16 11:04 Dose: 5 mg Levetiracetam (Keppra) 500 mg PEG BID [facility] Last Admin: 11/09/16 18:11 Dose: 500 mg Tamsulosin HCl (Flomax) 0.8 mg PO DAILY [facility] Last Admin: 12/18/16 11:02 Dose: 0.8 mg - Labs Labs: 11/03/16 14:03 11/03/16 14:03 PT 10.6 SECONDS (9.7-12.2) 11/24/15 14:10 INR 1.0 11/24/15 14:10 APTT 25 SECONDS (21-34) 11/24/15 14:10 Attending/Attestation - Attestation I have personally seen and examined this patient.: Yes I have fully participated in the care of the patient.: Yes I have reviewed all pertinent clinical information, including history, physical exam and plan: Yes Notes (Text): This is a late computer entry for 11/08/16-->error in [employer] preventing me to sign note (updates in progress) instructed resident to leave message with helpdesk to rectify. Patient seen, examined, and case discussed with resident. Will continue current management. Agree with assessment and plan by resident. Addendum on Physical Exam: patient has blister medial aspect of left thigh likely due to pressure given proximity to condom catheter. Monitor.
[2016-11-08] MEDS: levETIRAcetam 100 mg/ml (5ml) Oral Syringe PEG SCH ×2 (10:50→18:27)
[2016-11-08] MEDS: Enoxaparin 40 mg Syringe SC SCH (10:51)
--- NOTE | 2016-11-09 00:21 | CP.PCM.PN ---
<Juidth Forrester - Last Filed: 11/09/16 06:13> Subjective - Date & Time of Evaluation Date of Evaluation: 11/09/16 Time of Evaluation: 06:05 - Subjective Subjective: Patient seen and examined. Patient resting comfortably on trach collar. Patient will occasionally open his eyes. No acute events over night. Objective - Vital Signs/Intake and Output Vital Signs (last 24 hours): Temp Pulse Resp BP Pulse Ox 97.6 F 80 20 109/79 99 11/09/16 00:03 11/09/16 00:03 11/09/16 00:03 11/09/16 00:03 11/09/16 00:03 Intake and Output: 11/08/16 11/09/16 18:59 06:59 Intake Total 780 780 Output Total 450 300 Balance 330 480 - Medications Medications: Current Medications Aspirin (Aspirin Chewable) 81 mg PEG DAILY [facility] Last Admin: 11/08/16 10:50 Dose: 81 mg Bethanechol Chloride (Urecholine) 10 mg PO TID [facility] Last Admin: 11/08/16 18:27 Dose: 10 mg Carvedilol (Coreg) 3.125 mg PEG BID [facility] Last Admin: 11/08/16 18:27 Dose: 3.125 mg Clopidogrel Bisulfate (Plavix) 75 mg PEG DAILY [facility] Last Admin: 11/08/16 10:50 Dose: 75 mg Enoxaparin Sodium (Lovenox) 40 mg SC DAILY [facility] Last Admin: 11/08/16 10:51 Dose: 40 mg Famotidine (Pepcid) 20 mg PEG BID [facility] Last Admin: 11/08/16 18:27 Dose: 20 mg Finasteride (Proscar) 5 mg PEG DAILY [facility] Last Admin: 11/08/16 10:50 Dose: 5 mg Levetiracetam (Keppra) 500 mg PEG BID [facility] Last Admin: 11/08/16 18:27 Dose: 500 mg Tamsulosin HCl (Flomax) 0.8 mg PO DAILY [facility] Last Admin: 11/08/16 10:50 Dose: 0.8 mg - Labs Labs: 11/03/16 14:03 11/03/16 14:03 PT 10.6 SECONDS (9.7-12.2) 11/24/15 14:10 INR 1.0 11/24/15 14:10 APTT 25 SECONDS (21-34) 11/24/15 14:10 - Constitutional Appears: No Acute Distress - Head Exam Head Exam: ATRAUMATIC - Eye Exam Eye Exam: EOMI, Normal appearance - ENT Exam ENT Exam: Mucous Membranes Moist - Neck Exam Additional comments: trach collar with minimal secretions - Respiratory Exam Respiratory Exam: NORMAL BREATHING PATTERN - Cardiovascular Exam Cardiovascular Exam: +S1, +S2 - GI/Abdominal Exam GI & Abdominal Exam: Normal Bowel Sounds Additional comments: PEG tube in place - Exam Additional comments: condom catheter with skin blister/ irritation - Extremities Exam Extremities Exam: absent: Pedal Edema - Neurological Exam Neurological Exam: Awake - Skin Skin Exam: Dry, Warm Assessment and Plan - Assessment and Plan (Free Text) Assessment: Anoxic encephalopathy No acute changes, weekly labs on mondays- next set 11/10 Turn Q2 hours- Continue to monitor Isosource feeds through PEG @ reduced rate 60cc/hr per Nutrition recommendations suctioning trach routinely 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 10/29: Healing linear 5 cm fissure with area of erythema Nursing to use barrier to prevent further progression of abrasion Continue to monitor with skin checks and Q2H turning Urinary Retention 11/09: c/w condom catheter - 750ml today, continue to monitor 11/05: no retention at this time - c/w condom catheter and urine output monitoring 11/04: continue current management, condom cath in place, fucntional, continue medical mangement 11/03: no urinary retention, condom catheter still functional; flomax and bethanechol renewed today 10/31: no retention today - [place] catheter functioning with 1600c output today 10/29: condom catheter in place draining straw colored urine; no changes from 10/27: Adequate urinary production. 10/24: baker removed - continue to monitor for urinary retention 577cc urine retained 10/20 Baker placed 10/20, will attempt bladder training and removal in 24 hours Flomax 0.8 mg PO daily Proscar 5mg PO daily Bethanecol 10 mg PO TID monitor I's and O's Failure to thrive 11/09: tube feeds as scheduled Previous note: Continuous Tube feeds at 65cc/hr goal per nutrition recommendations with 300cc of free water flush q8H Measure weight weekly. Continue to monitor Respiratory failure 11/09: trach collar in place - normal resp pattern Trach collar in place, with some secretions, will suction when needed, continue with current management. Previous note Continue Current management of trach collar and secretions- continue to suction as needed CAD (coronary artery disease) s/p cardiac stents on 06/13/15 ASA 81mg via PEG daily - renewed 11/03 Coreg 3.125mg PEG BID Plavix 75mg via PEG daily Seizures Keppra 500mg PEG BID for seizure prophylaxis Lower extremity edema will give lasix via PEG as needed Prophylactic measure Pepcid 20 mg PEG BID Lovenox 40mg SC daily - renewed 11/03 SCDs <Colleen Braswell V - Last Filed: 11/09/16 23:19> Objective - Vital Signs/Intake and Output Vital Signs (last 24 hours): Temp Pulse Resp BP Pulse Ox 98.4 F 86 20 146/95 H 96 11/09/16 16:00 11/09/16 16:00 11/09/16 16:00 11/09/16 16:00 11/09/16 16:00 Intake and Output: 11/09/16 11/10/16 18:59 06:59 Output Total 200 Balance -200 - Medications Medications: Current Medications Aspirin (Aspirin Chewable) 81 mg PEG DAILY [facility] Last Admin: 11/09/16 11:02 Dose: 81 mg Bethanechol Chloride (Urecholine) 10 mg PO TID [facility] Last Admin: 11/09/16 19:52 Dose: 10 mg Carvedilol (Coreg) 3.125 mg PEG BID [facility] Last Admin: 11/09/16 18:11 Dose: 3.125 mg Clopidogrel Bisulfate (Plavix) 75 mg PEG DAILY [facility] Last Admin: 11/09/16 11:02 Dose: 75 mg Enoxaparin Sodium (Lovenox) 40 mg SC DAILY [facility] Last Admin: 11/09/16 11:03 Dose: 40 mg Famotidine (Pepcid) 20 mg PEG BID [facility] Last Admin: 11/09/16 18:11 Dose: 20 mg Finasteride (Proscar) 5 mg PEG DAILY [facility] Last Admin: 11/09/16 11:04 Dose: 5 mg Levetiracetam (Keppra) 500 mg PEG BID [facility] Last Admin: 11/09/16 18:11 Dose: 500 mg Tamsulosin HCl (Flomax) 0.8 mg PO DAILY [facility] Last Admin: 11/09/16 11:02 Dose: 0.8 mg - Labs Labs: 11/03/16 14:03 11/03/16 14:03 PT 10.6 SECONDS (9.7-12.2) 11/24/15 14:10 INR 1.0 11/24/15 14:10 APTT 25 SECONDS (21-34) 11/24/15 14:10 Attending/Attestation - Attestation I have personally seen and examined this patient.: Yes I have fully participated in the care of the patient.: Yes I have reviewed all pertinent clinical information, including history, physical exam and plan: Yes Notes (Text): [employer] preventing me to sign note (updates in progress) instructed resident to leave message with helpdesk to rectify. Patient seen, examined, and case discussed with resident. Will continue current management. Agree with assessment and plan by resident. Addendum on Physical Exam: patient has blister medial aspect of left thigh likely due to pressure given proximity to condom catheter. Monitor.
[2016-11-09] MEDS: Enoxaparin 40 mg Syringe SC SCH (11:03)
[2016-11-09] MEDS: levETIRAcetam 100 mg/ml (5ml) Oral Syringe PEG SCH ×2 (11:03→18:11)
[2016-11-10 06:39] LABS: BASO % 0.3 % (0.0-2.0); EOS # 0.3 K/uL (0.0-0.7); EOS % 3.8 % (0.0-4.0); LYMPH # 1.9 K/uL (1.0-4.3); LYMPH % 21.7 % (20.0-40.0); MEAN CELL VOLUME 88.2 fL (80.0-94.0); MEAN CORPUSCULAR HEMOGLOBIN 28.6 pg (27.0-31.0); MEAN CORPUSCULAR HGB CONC 32.4 g/dL (33.0-37.0); MONO # 0.8 K/uL (0.0-0.8); MONO % 9.1 % (0.0-10.0); NEUT # 5.7 K/uL (1.8-7.0); NEUT % 65.1 % (50.0-75.0); NRBC % 0.1 % (0.0-2.0); RBC 4.55 Mil/uL (4.40-5.90); RED CELL DISTRIBUTION WIDTH 15.4 % (11.5-14.5); WHITE BLOOD COUNT 8.8 K/uL (4.8-10.8)
[2016-11-10 07:22] LABS: ALBUMIN 3.8 g/dL (3.5-5.0)
[2016-11-10 07:25] LABS: ALB/GLOB RATIO 0.9 (1.0-2.1); AST/SGOT 30 U/L (17-59); BLOOD UREA NITROGEN 17 mg/dL (9-20); GFR NON-AFRICAN AMERICAN > 60
[2016-11-10 07:26] LABS: ALT/SGPT 52 U/L (21-72); CALCIUM 8.8 mg/dl (8.6-10.4)
--- NOTE | 2016-11-10 08:04 | CP.PCM.PN ---
<Mee Luciano - Last Filed: 11/11/16 07:15> Subjective - Date & Time of Evaluation Date of Evaluation: 11/10/16 Time of Evaluation: 08:01 - Subjective Subjective: Patient examined at bedside. Patient spontaneously opening his eyes. No acute events overnight per nursing. Objective - Vital Signs/Intake and Output Vital Signs (last 24 hours): Temp Pulse Resp BP Pulse Ox 97.6 F 71 20 117/78 99 11/09/16 23:50 11/09/16 23:50 11/09/16 23:50 11/09/16 23:50 11/09/16 23:50 Intake and Output: 11/10/16 11/10/16 06:59 18:59 Output Total 200 Balance -200 - Medications Medications: Current Medications Aspirin (Aspirin Chewable) 81 mg PEG DAILY [facility] Last Admin: 11/09/16 11:02 Dose: 81 mg Bethanechol Chloride (Urecholine) 10 mg PO TID [facility] Last Admin: 11/09/16 19:52 Dose: 10 mg Carvedilol (Coreg) 3.125 mg PEG BID [facility] Last Admin: 11/09/16 18:11 Dose: 3.125 mg Clopidogrel Bisulfate (Plavix) 75 mg PEG DAILY [facility] Last Admin: 11/09/16 11:02 Dose: 75 mg Enoxaparin Sodium (Lovenox) 40 mg SC DAILY [facility] Last Admin: 11/09/16 11:03 Dose: 40 mg Famotidine (Pepcid) 20 mg PEG BID [facility] Last Admin: 11/09/16 18:11 Dose: 20 mg Finasteride (Proscar) 5 mg PEG DAILY [facility] Last Admin: 11/09/16 11:04 Dose: 5 mg Levetiracetam (Keppra) 500 mg PEG BID [facility] Last Admin: 11/09/16 18:11 Dose: 500 mg Tamsulosin HCl (Flomax) 0.8 mg PO DAILY [facility] Last Admin: 11/09/16 11:02 Dose: 0.8 mg - Labs Labs: 11/10/16 06:35 11/10/16 06:35 PT 10.6 SECONDS (9.7-12.2) 11/24/15 14:10 INR 1.0 11/24/15 14:10 APTT 25 SECONDS (21-34) 01/02/16 14:10 - Constitutional Appears: No Acute Distress, Chronically Ill - Head Exam Head Exam: ATRAUMATIC, NORMAL INSPECTION, NORMOCEPHALIC - Eye Exam Eye Exam: Normal appearance - ENT Exam ENT Exam: Mucous Membranes Moist - Neck Exam Additional comments: trach in position, no surrounding erythema - Respiratory Exam Respiratory Exam: NORMAL BREATHING PATTERN - Cardiovascular Exam Cardiovascular Exam: +S1, +S2. absent: Tachycardia, Murmur - GI/Abdominal Exam GI & Abdominal Exam: Soft, Normal Bowel Sounds Additional comments: no surrounding erythema or drainage to PEG site - Exam Additional comments: [place] condom catheter in place - Extremities Exam Extremities Exam: Normal Inspection. absent: Pedal Edema Additional comments: Prevalon boot in place - Neurological Exam Neurological Exam: Awake. absent: Alert - Psychiatric Exam Psychiatric exam: Flat Affect - Skin Skin Exam: Normal Color, Warm Assessment and Plan - Assessment and Plan (Free Text) Assessment: Anoxic encephalopathy No acute changes, continue weekly labs on mondays Turn Q2 hours- Continue to monitor Isosource feeds through PEG @ reduced rate 60cc/hr per Nutrition recommendations suctioning trach routinely Pending residential facility placement Hypoalbuminemia Prostat 30mL 1x / day Sacral Ulcers 11/10: c/w wound care 11/09: c/w wound care 10/30: No acute changes, healing linear 5 cm fissure, continue to turn patient Q2H. 10/29: Healing linear 5 cm fissure with area of erythema Nursing to use barrier to prevent further progression of abrasion Continue to monitor with skin checks and Q2H turning Urinary Retention 11/10: c/w condom catheter - 780 ml Intake, 400 ml Output, continue to monitor 11/09: c/w condom catheter - 750ml today, continue to monitor 11/05: no retention at this time - c/w condom catheter and urine output monitoring 11/04: continue current management, condom cath in place, fucntional, continue medical mangement 11/03: no urinary retention, condom catheter still functional; flomax and bethanechol renewed today 10/31: no retention today - [place] catheter functioning with 1600c output today 10/29: condom catheter in place draining straw colored urine; no changes from 10/27: Adequate urinary production. 10/24: baker removed - continue to monitor for urinary retention 577cc urine retained 10/20 Baker placed 10/20, will attempt bladder training and removal in 24 hours Flomax 0.8 mg PO daily Proscar 5mg PO daily Bethanecol 10 mg PO TID monitor I's and O's Failure to thrive 11/10: tube feeds as scheduled Previous note: Continuous Tube feeds at 65cc/hr goal per nutrition recommendations with 300cc of free water flush q8H Measure weight weekly. Continue to monitor Respiratory failure 11/10: trach collar in place - normal resp pattern Trach collar in place, with some secretions, will suction when needed, continue with current management. Previous note Continue Current management of trach collar and secretions- continue to suction as needed CAD (coronary artery disease) s/p cardiac stents on 06/13/15 ASA 81mg via PEG daily - renewed 11/03 Coreg 3.125mg PEG BID Plavix 75mg via PEG daily Seizures Keppra 500mg PEG BID for seizure prophylaxis Lower extremity edema will give lasix via PEG as needed Prophylactic measure Pepcid 20 mg PEG BID Lovenox 40mg SC daily - renewed 11/03 SCDs <Donnell Ying - Last Filed: 11/11/16 09:18> Objective - Vital Signs/Intake and Output Vital Signs (last 24 hours): Temp Pulse Resp BP Pulse Ox 98 F 89 20 110/64 98 11/11/16 07:51 11/11/16 07:51 11/11/16 07:51 11/11/16 07:51 11/11/16 07:51 Intake and Output: 11/11/16 11/11/16 06:59 18:59 Intake Total 1560 Output Total 351 Balance 1209 - Medications Medications: Current Medications Aspirin (Aspirin Chewable) 81 mg PEG DAILY [facility] Last Admin: 11/10/16 11:13 Dose: 81 mg Bethanechol Chloride (Urecholine) 10 mg PO TID [facility] Last Admin: 11/10/16 18:06 Dose: 10 mg Clopidogrel Bisulfate (Plavix) 75 mg PEG DAILY [facility] Last Admin: 11/10/16 11:13 Dose: 75 mg Enoxaparin Sodium (Lovenox) 40 mg SC DAILY [facility] Last Admin: 11/10/16 11:07 Dose: 40 mg Finasteride (Proscar) 5 mg PEG DAILY [facility] Last Admin: 11/10/16 11:08 Dose: 5 mg Tamsulosin HCl (Flomax) 0.8 mg PO DAILY [facility] Last Admin: 11/10/16 11:08 Dose: 0.8 mg - Labs Labs: 11/10/16 06:35 11/10/16 06:35 PT 10.6 SECONDS (9.7-12.2) 11/24/15 14:10 INR 1.0 11/24/15 14:10 APTT 25 SECONDS (21-34) 11/24/15 14:10 Attending/Attestation - Attestation I have personally seen and examined this patient.: Yes I have fully participated in the care of the patient.: Yes I have reviewed all pertinent clinical information, including history, physical exam and plan: Yes Notes (Text): 11/11/16 09:18 Patient was seen and examined at bedside with the resident There is no change in clinical condition Continue current management
[2016-11-10] MEDS: Enoxaparin 40 mg Syringe SC SCH (11:07)
[2016-11-10] MEDS: levETIRAcetam 100 mg/ml (5ml) Oral Syringe PEG SCH ×2 (11:08→18:05)
--- NOTE | 2016-11-11 07:18 | CP.PCM.PN ---
<Mee Luciano - Last Filed: 11/11/16 13:25> Subjective - Date & Time of Evaluation Date of Evaluation: 11/11/16 Time of Evaluation: 07:17 - Subjective Subjective: Patient examined at bedside. Patient opens eyes spontaneously. No acute events per nursing. Objective - Vital Signs/Intake and Output Vital Signs (last 24 hours): Temp Pulse Resp BP Pulse Ox 97.7 F 67 20 100/72 99 11/10/16 23:33 11/10/16 23:33 11/10/16 23:33 11/10/16 23:33 11/10/16 23:33 Intake and Output: 11/11/16 11/11/16 06:59 18:59 Intake Total 1560 Output Total 351 Balance 1209 - Medications Medications: Current Medications Aspirin (Aspirin Chewable) 81 mg PEG DAILY [facility] Last Admin: 11/10/16 11:13 Dose: 81 mg Bethanechol Chloride (Urecholine) 10 mg PO TID [facility] Last Admin: 11/10/16 18:06 Dose: 10 mg Clopidogrel Bisulfate (Plavix) 75 mg PEG DAILY [facility] Last Admin: 11/10/16 11:13 Dose: 75 mg Enoxaparin Sodium (Lovenox) 40 mg SC DAILY [facility] Last Admin: 11/10/16 11:07 Dose: 40 mg Finasteride (Proscar) 5 mg PEG DAILY [facility] Last Admin: 11/10/16 11:08 Dose: 5 mg Tamsulosin HCl (Flomax) 0.8 mg PO DAILY [facility] Last Admin: 11/10/16 11:08 Dose: 0.8 mg - Labs Labs: 11/10/16 06:35 11/10/16 06:35 PT 10.6 SECONDS (9.7-12.2) 11/24/15 14:10 INR 1.0 11/24/15 14:10 APTT 25 SECONDS (21-34) 11/24/15 14:10 - Constitutional Appears: No Acute Distress, Chronically Ill - Head Exam Head Exam: ATRAUMATIC, NORMAL INSPECTION, NORMOCEPHALIC - Eye Exam Eye Exam: Normal appearance - ENT Exam ENT Exam: Mucous Membranes Moist Additional comments: thick oral secretions - Neck Exam Neck Exam: Normal Inspection Additional comments: trach in place, no surrounding erythema - Respiratory Exam Respiratory Exam: Clear to Ausculation Bilateral, NORMAL BREATHING PATTERN - Cardiovascular Exam Cardiovascular Exam: +S1, +S2. absent: Murmur - GI/Abdominal Exam GI & Abdominal Exam: Soft, Normal Bowel Sounds Additional comments: PEG in place - Extremities Exam Additional comments: Prevalon boots. Mild abrasion to bilateral upper extremities. - Neurological Exam Neurological Exam: Awake - Psychiatric Exam Psychiatric exam: Flat Affect - Skin Skin Exam: Normal Color, Warm Assessment and Plan - Assessment and Plan (Free Text) Assessment: Anoxic encephalopathy No acute changes, continue weekly labs on mondays Turn Q2 hours- Continue to monitor Continue Isosource feeds through PEG @ reduced rate 60cc/hr per Nutrition recommendations suctioning trach routinely Pending long-term facility placement Hypoalbuminemia Prostat 30mL 1x / day Sacral Ulcers 11/11: c/w wound care 11/10: c/w wound care 11/09: c/w wound care 10/30: No acute changes, healing linear 5 cm fissure, continue to turn patient Q2H. 10/29: Healing linear 5 cm fissure with area of erythema Nursing to use barrier to prevent further progression of abrasion Continue to monitor with skin checks and Q2H turning Urinary Retention 11/11: c/w condom catheter - 2660 ml Intake, 751 ml Output, continue to monitor 11/10: c/w condom catheter - 780 ml Intake, 400 ml Output, continue to monitor 11/09: c/w condom catheter - 750ml today, continue to monitor 11/05: no retention at this time - c/w condom catheter and urine output monitoring 11/04: continue current management, condom cath in place, fucntional, continue medical mangement 11/03: no urinary retention, condom catheter still functional; flomax and bethanechol renewed today 10/31: no retention today - [place] catheter functioning with 1600c output today 10/29: condom catheter in place draining straw colored urine; no changes from 10/27: Adequate urinary production. 10/24: baker removed - continue to monitor for urinary retention 577cc urine retained 10/20 Baker placed 10/20, will attempt bladder training and removal in 24 hours Flomax 0.8 mg PO daily Proscar 5mg PO daily Bethanecol 10 mg PO TID monitor I's and O's Failure to thrive 11/11: tube feeds as scheduled Previous note: Continuous Tube feeds at 65cc/hr goal per nutrition recommendations with 300cc of free water flush q8H Measure weight weekly. Continue to monitor Respiratory failure 11/11: trach collar in place - normal resp pattern Trach collar in place, with some secretions, will suction when needed, continue with current management. Previous note Continue Current management of trach collar and secretions- continue to suction as needed CAD (coronary artery disease) s/p cardiac stents on 06/13/15 ASA 81mg via PEG daily - renewed 11/03 Coreg 3.125mg PEG BID - renewed 11/11 Plavix 75mg via PEG daily - renewed 11/11 Seizures Keppra 500mg PEG BID for seizure prophylaxis - renewed 11/11 Lower extremity edema will give lasix via PEG as needed Prophylactic measure Pepcid 20 mg PEG BID Lovenox 40mg SC daily - renewed 11/03 SCDs <Donnell Ying - Last Filed: 11/11/16 15:30> Objective - Vital Signs/Intake and Output Vital Signs (last 24 hours): Temp Pulse Resp BP Pulse Ox 98 F 89 20 110/64 98 11/11/16 07:51 11/11/16 15:16 11/11/16 07:51 11/11/16 07:51 11/11/16 07:51 Intake and Output: 11/11/16 11/11/16 06:59 18:59 Intake Total 1560 Output Total 351 400 Balance 1209 -400 - Medications Medications: Current Medications Aspirin (Aspirin Chewable) 81 mg PEG DAILY [facility] Last Admin: 11/11/16 11:09 Dose: 81 mg Bethanechol Chloride (Urecholine) 10 mg PO TID [facility] Last Admin: 11/11/16 14:10 Dose: 10 mg Carvedilol (Coreg) 3.125 mg PEG BID [facility] Clopidogrel Bisulfate (Plavix) 75 mg PEG DAILY [facility] Enoxaparin Sodium (Lovenox) 40 mg SC DAILY [facility] Famotidine (Pepcid) 20 mg PEG BID [facility] Finasteride (Proscar) 5 mg PEG DAILY [facility] Levetiracetam (Keppra) 500 mg PO BID [facility] Tamsulosin HCl (Flomax) 0.8 mg PO DAILY [facility] Last Admin: 11/11/16 11:09 Dose: 0.8 mg - Labs Labs: 11/10/16 06:35 11/10/16 06:35 PT 10.6 SECONDS (9.7-12.2) 01/02/16 14:10 INR 1.0 11/24/15 14:10 APTT 25 SECONDS (21-34) 11/24/15 14:10 Attending/Attestation - Attestation I have personally seen and examined this patient.: Yes I have fully participated in the care of the patient.: Yes I have reviewed all pertinent clinical information, including history, physical exam and plan: Yes Notes (Text): 11/11/16 15:29 Patient was seen and examined at bedside with the resident No change in clinical condition Continue current management
[2016-11-11] MEDS: Enoxaparin 40 mg Syringe SC SCH (11:09)
--- NOTE | 2016-11-12 07:38 | CP.PCM.PN ---
<Alex Coyle - Last Filed: 11/12/16 10:27> Subjective - Date & Time of Evaluation Date of Evaluation: 11/12/16 Time of Evaluation: 07:55 - Subjective Subjective: PGY 1 medicine note- Dr. Carrasco's service Pt seen and examined in no acute distress. Patient clinically presents the same. No apparent fever or chills noted. Patient is minimally responsive to tactile stimuli and nonresponsive to verbal stimuli secondary to anoxic brain injury. Patient turned Q2H per nursing team to prevent bed sores. A ROS could not be obtained at this time due to presentation. Objective - Vital Signs/Intake and Output Vital Signs (last 24 hours): Temp Pulse Resp BP Pulse Ox 98.1 F 98 H 20 125/81 99 11/12/16 01:00 11/12/16 01:00 11/12/16 01:00 11/12/16 01:00 11/12/16 01:00 Intake and Output: 11/12/16 11/12/16 06:59 18:59 Intake Total 1560 Output Total 400 Balance 1160 - Medications Medications: Current Medications Aspirin (Aspirin Chewable) 81 mg PEG DAILY [facility] Last Admin: 11/11/16 11:09 Dose: 81 mg Bethanechol Chloride (Urecholine) 10 mg PO TID [facility] Last Admin: 11/11/16 18:10 Dose: 10 mg Carvedilol (Coreg) 3.125 mg PEG BID [facility] Last Admin: 11/11/16 18:10 Dose: 3.125 mg Clopidogrel Bisulfate (Plavix) 75 mg PEG DAILY [facility] Enoxaparin Sodium (Lovenox) 40 mg SC DAILY [facility] Famotidine (Pepcid) 20 mg PEG BID [facility] Last Admin: 11/11/16 18:10 Dose: 20 mg Finasteride (Proscar) 5 mg PEG DAILY [facility] Levetiracetam (Keppra) 500 mg PO BID [facility] Last Admin: 11/11/16 18:10 Dose: 500 mg Tamsulosin HCl (Flomax) 0.8 mg PO DAILY [facility] Last Admin: 11/11/16 11:09 Dose: 0.8 mg - Labs Labs: 11/10/16 06:35 11/10/16 06:35 PT 10.6 SECONDS (9.7-12.2) 11/24/15 14:10 INR 1.0 11/24/15 14:10 APTT 25 SECONDS (21-34) 11/24/15 14:10 - Constitutional Appears: No Acute Distress, Chronically Ill - Head Exam Head Exam: ATRAUMATIC - Eye Exam Eye Exam: EOMI - ENT Exam ENT Exam: Mucous Membranes Moist - Neck Exam Neck Exam: absent: Lymphadenopathy Additional comments: trach collar in place c/d with minimal secretions - Respiratory Exam Respiratory Exam: NORMAL BREATHING PATTERN. absent: Wheezes, Respiratory Distress - Cardiovascular Exam Cardiovascular Exam: +S1, +S2 - GI/Abdominal Exam GI & Abdominal Exam: Soft, Normal Bowel Sounds. absent: Firm, Guarding, Rigid, Tenderness Additional comments: PEG tube in place - Exam Additional comments: condom catheter in place - Extremities Exam Extremities Exam: Normal Capillary Refill. absent: Full ROM - Back Exam Back Exam: absent: Full ROM - Neurological Exam Neurological Exam: Alert, Awake, CN II-XII Intact - Psychiatric Exam Psychiatric exam: Flat Affect - Skin Skin Exam: Abrasion, Dry, Normal Color, Warm Additional comments: right medial thigh Assessment and Plan - Assessment and Plan (Free Text) Assessment: Anoxic encephalopathy No acute changes, continue weekly labs on mondays Turn Q2 hours- Continue to monitor Continue Isosource feeds through PEG @ reduced rate 60cc/hr per Nutrition recommendations Continue trach suctioning as needed Pending half-way facility placement Hypoalbuminemia Prostat 30mL 1x / day Sacral Ulcers 11/12: c/w wound care 11/11: c/w wound care 11/10: c/w wound care 11/09: c/w wound care 10/30: No acute changes, healing linear 5 cm fissure, continue to turn patient Q2H. 10/29: Healing linear 5 cm fissure with area of erythema Nursing to use barrier to prevent further progression of abrasion Continue to monitor with skin checks and Q2H turning Urinary Retention 11/12: c/w condom catheter - 1560 ml Intake, 800 ml Output, continue to monitor to ensure that catheter is properly placed 11/11: c/w condom catheter - 2660 ml Intake, 751 ml Output, continue to monitor 11/10: c/w condom catheter - 780 ml Intake, 400 ml Output, continue to monitor 11/09: c/w condom catheter - 750ml today, continue to monitor 11/05: no retention at this time - c/w condom catheter and urine output monitoring 11/04: continue current management, condom cath in place, fucntional, continue medical mangement 11/03: no urinary retention, condom catheter still functional; flomax and bethanechol renewed today 10/31: no retention today - [place] catheter functioning with 1600c output today 10/29: condom catheter in place draining straw colored urine; no changes from 10/27: Adequate urinary production. 10/24: baker removed - continue to monitor for urinary retention 577cc urine retained 10/20 Baker placed 10/20, will attempt bladder training and removal in 24 hours Flomax 0.8 mg PO daily Proscar 5mg PO daily Bethanecol 10 mg PO TID monitor I's and O's Failure to thrive 11/12: Continue feeds Previous note: Continuous Tube feeds at 65cc/hr goal per nutrition recommendations with 300cc of free water flush q8H Measure weight weekly. Continue to monitor Respiratory failure 11/11: trach collar in place - normal resp pattern Trach collar in place, with some secretions, will suction when needed, continue with current management. Previous note Continue Current management of trach collar and secretions- continue to suction as needed CAD (coronary artery disease) s/p cardiac stents on 06/13/15 ASA 81mg via PEG daily Coreg 3.125mg PEG BID Plavix 75mg via PEG daily Seizures Keppra 500mg PEG BID for seizure prophylaxis Lower extremity edema Lasix via PEG as needed Prophylactic measure Pepcid 20 mg PEG BID Lovenox 40mg SC daily - renewed 11/03 SCDs Continue to monitor medication administrations and clinical presentation <Donnell Ying - Last Filed: 11/12/16 14:44> Objective - Vital Signs/Intake and Output Vital Signs (last 24 hours): Temp Pulse Resp BP Pulse Ox 98.2 F 73 20 114/72 99 11/12/16 07:45 11/12/16 08:34 11/12/16 07:45 11/12/16 07:45 11/12/16 07:45 Intake and Output: 11/12/16 11/12/16 06:59 18:59 Intake Total 1560 Output Total 400 400 Balance 1160 -400 - Medications Medications: Current Medications Aspirin (Aspirin Chewable) 81 mg PEG DAILY [facility] Last Admin: 11/12/16 10:31 Dose: 81 mg Bethanechol Chloride (Urecholine) 10 mg PO TID [facility] Last Admin: 11/12/16 13:42 Dose: 10 mg Carvedilol (Coreg) 3.125 mg PEG BID [facility] Last Admin: 11/12/16 10:31 Dose: 3.125 mg Clopidogrel Bisulfate (Plavix) 75 mg PEG DAILY [facility] Last Admin: 11/12/16 10:35 Dose: 75 mg Enoxaparin Sodium (Lovenox) 40 mg SC DAILY [facility] Last Admin: 11/12/16 10:35 Dose: 40 mg Famotidine (Pepcid) 20 mg PEG BID [facility] Last Admin: 11/12/16 10:32 Dose: 20 mg Finasteride (Proscar) 5 mg PEG DAILY [facility] Last Admin: 11/12/16 10:31 Dose: 5 mg Levetiracetam (Keppra) 500 mg PO BID [facility] Last Admin: 11/12/16 10:31 Dose: 500 mg Tamsulosin HCl (Flomax) 0.8 mg PO DAILY [facility] Last Admin: 11/12/16 10:31 Dose: 0.8 mg - Labs Labs: 11/10/16 06:35 11/10/16 06:35 PT 10.6 SECONDS (9.7-12.2) 11/24/15 14:10 INR 1.0 11/24/15 14:10 APTT 25 SECONDS (21-34) 11/24/15 14:10 Attending/Attestation - Attestation I have personally seen and examined this patient.: Yes I have fully participated in the care of the patient.: Yes I have reviewed all pertinent clinical information, including history, physical exam and plan: Yes Notes (Text): 11/12/16 14:44 Patient was seen and examined at bedside with the resident No change in clinical condition and continue current management Awaiting placement
[2016-11-12] MEDS: Enoxaparin 40 mg Syringe SC SCH (10:35)
[2016-11-13] MEDS: Enoxaparin 40 mg Syringe SC SCH (10:38)
--- NOTE | 2016-11-13 11:23 | CP.PCM.PN ---
<Maren Araya - Last Filed: 11/13/16 11:55> Subjective - Date & Time of Evaluation Date of Evaluation: 11/13/16 Time of Evaluation: 07:30 - Subjective Subjective: Pt seen and observed at the bedside. Pt blinks eyes spontaneously. No acute events as per nursing. Objective - Vital Signs/Intake and Output Vital Signs (last 24 hours): Temp Pulse Resp BP Pulse Ox 98.1 F 81 20 110/70 100 11/13/16 07:12 11/13/16 08:58 11/13/16 07:12 11/13/16 07:12 11/13/16 07:12 Intake and Output: 11/13/16 11/13/16 06:59 18:59 Intake Total 1560 Output Total 250 Balance 1310 - Medications Medications: Current Medications Aspirin (Aspirin Chewable) 81 mg PEG DAILY [facility] Last Admin: 11/13/16 10:37 Dose: 81 mg Bacitracin (Bacitracin) 1 ea TOP DAILY [facility] Bethanechol Chloride (Urecholine) 10 mg PO TID [facility] Last Admin: 11/13/16 10:38 Dose: 10 mg Carvedilol (Coreg) 3.125 mg PEG BID [facility] Last Admin: 11/13/16 10:38 Dose: 3.125 mg Clopidogrel Bisulfate (Plavix) 75 mg PEG DAILY [facility] Last Admin: 11/13/16 10:38 Dose: 75 mg Enoxaparin Sodium (Lovenox) 40 mg SC DAILY [facility] Last Admin: 11/13/16 10:38 Dose: 40 mg Famotidine (Pepcid) 20 mg PEG BID [facility] Last Admin: 11/13/16 10:37 Dose: 20 mg Finasteride (Proscar) 5 mg PEG DAILY [facility] Last Admin: 11/13/16 10:38 Dose: 5 mg Levetiracetam (Keppra) 500 mg PO BID [facility] Last Admin: 11/13/16 10:38 Dose: 500 mg Tamsulosin HCl (Flomax) 0.8 mg PO DAILY [facility] Last Admin: 11/13/16 10:37 Dose: 0.8 mg - Labs Labs: 11/10/16 06:35 11/10/16 06:35 PT 10.6 SECONDS (9.7-12.2) 11/24/15 14:10 INR 1.0 11/24/15 14:10 APTT 25 SECONDS (21-34) 11/24/15 14:10 - Constitutional Appears: Non-toxic, No Acute Distress - Head Exam Head Exam: ATRAUMATIC, NORMOCEPHALIC - Eye Exam Eye Exam: PERRL. absent: Conjunctival injection - ENT Exam ENT Exam: Mucous Membranes Moist, Normal Exam - Respiratory Exam Respiratory Exam: Rhonchi. absent: Accessory Muscle Use - Cardiovascular Exam Cardiovascular Exam: +S1, +S2. absent: Tachycardia - GI/Abdominal Exam GI & Abdominal Exam: Soft. absent: Tenderness - Exam External exam: absent: Ecchymosis, Erythema - Extremities Exam Extremities Exam: absent: Pedal Edema, Tenderness - Skin Skin Exam: Normal Color, Warm Additional comments: R medial thigh lesion 2 x 2.5 cm approximately Assessment and Plan - Assessment and Plan (Free Text) Plan: Anoxic encephalopathy No acute changes, continue weekly labs on mondays Turn Q2 hours- Continue to monitor Continue Isosource feeds through PEG @ reduced rate 60cc/hr per Nutrition recommendations Continue trach suctioning as needed Pending longterm facility placement Hypoalbuminemia Prostat 30mL 1x / day Sacral Ulcers 11/12: c/w wound care 11/11: c/w wound care 11/10: c/w wound care 11/09: c/w wound care 10/30: No acute changes, healing linear 5 cm fissure, continue to turn patient Q2H. 10/29: Healing linear 5 cm fissure with area of erythema Nursing to use barrier to prevent further progression of abrasion Continue to monitor with skin checks and Q2H turning Urinary Retention 11/13: c/w condom catheter, 1560 ml intake, 650 ml output, continue to monitor correct placement of condom catheter. 11/12: c/w condom catheter - 1560 ml Intake, 800 ml Output, continue to monitor to ensure that catheter is properly placed 11/11: c/w condom catheter - 2660 ml Intake, 751 ml Output, continue to monitor 11/10: c/w condom catheter - 780 ml Intake, 400 ml Output, continue to monitor 11/09: c/w condom catheter - 750ml today, continue to monitor 11/05: no retention at this time - c/w condom catheter and urine output monitoring 11/04: continue current management, condom cath in place, fucntional, continue medical mangement 11/03: no urinary retention, condom catheter still functional; flomax and bethanechol renewed today 10/31: no retention today - [place] catheter functioning with 1600c output today 10/29: condom catheter in place draining straw colored urine; no changes from 10/27: Adequate urinary production. 10/24: baker removed - continue to monitor for urinary retention 577cc urine retained 10/20 Baker placed 10/20, will attempt bladder training and removal in 24 hours Flomax 0.8 mg PO daily Proscar 5mg PO daily Bethanecol 10 mg PO TID monitor I's and O's Failure to thrive 11/12: Continue feeds Previous note: Continuous Tube feeds at 65cc/hr goal per nutrition recommendations with 300cc of free water flush q8H Measure weight weekly. Continue to monitor Respiratory failure 11/11: trach collar in place - normal resp pattern Trach collar in place, with some secretions, will suction when needed, continue with current management. Previous note Continue Current management of trach collar and secretions- continue to suction as needed CAD (coronary artery disease) s/p cardiac stents on 06/13/15 ASA 81mg via PEG daily Coreg 3.125mg PEG BID Plavix 75mg via PEG daily Seizures Keppra 500mg PEG BID for seizure prophylaxis Lower extremity edema Lasix via PEG as needed Prophylactic measure Pepcid 20 mg PEG BID Lovenox 40mg SC daily - renewed 11/03 SCDs Continue to monitor medication administrations and clinical presentation <Donnell Ying - Last Filed: 11/13/16 14:41> Objective - Vital Signs/Intake and Output Vital Signs (last 24 hours): Temp Pulse Resp BP Pulse Ox 98.1 F 81 20 110/70 100 11/13/16 07:12 11/13/16 08:58 11/13/16 07:12 11/13/16 07:12 11/13/16 07:12 Intake and Output: 11/13/16 11/13/16 06:59 18:59 Intake Total 1560 Output Total 250 Balance 1310 - Medications Medications: Current Medications Aspirin (Aspirin Chewable) 81 mg PEG DAILY [facility] Last Admin: 11/13/16 10:37 Dose: 81 mg Bacitracin (Bacitracin) 1 ea TOP DAILY [facility] Last Admin: 11/13/16 13:56 Dose: 1 ea Bethanechol Chloride (Urecholine) 10 mg PO TID [facility] Last Admin: 11/13/16 13:53 Dose: 10 mg Carvedilol (Coreg) 3.125 mg PEG BID [facility] Last Admin: 11/13/16 10:38 Dose: 3.125 mg Clopidogrel Bisulfate (Plavix) 75 mg PEG DAILY [facility] Last Admin: 11/13/16 10:38 Dose: 75 mg Enoxaparin Sodium (Lovenox) 40 mg SC DAILY [facility] Last Admin: 11/13/16 10:38 Dose: 40 mg Famotidine (Pepcid) 20 mg PEG BID [facility] Last Admin: 11/13/16 10:37 Dose: 20 mg Finasteride (Proscar) 5 mg PEG DAILY [facility] Last Admin: 11/13/16 10:38 Dose: 5 mg Levetiracetam (Keppra) 500 mg PO BID [facility] Last Admin: 11/13/16 10:38 Dose: 500 mg Tamsulosin HCl (Flomax) 0.8 mg PO DAILY [facility] Last Admin: 11/13/16 10:37 Dose: 0.8 mg - Labs Labs: 11/10/16 06:35 11/10/16 06:35 PT 10.6 SECONDS (9.7-12.2) 11/24/15 14:10 INR 1.0 11/24/15 14:10 APTT 25 SECONDS (21-34) 11/24/15 14:10 Attending/Attestation - Attestation I have personally seen and examined this patient.: Yes I have fully participated in the care of the patient.: Yes I have reviewed all pertinent clinical information, including history, physical exam and plan: Yes Notes (Text): 11/13/16 14:41 Patient seen and examined at bedside No change in clinical condition Continue current management
[2016-11-13] MEDS: Bacitracin 500 Units/gm Oint Foilpak UD TOP SCH (13:56)
[2016-11-14] MEDS: Enoxaparin 40 mg Syringe SC SCH (09:12)
[2016-11-14] MEDS: Bacitracin 500 Units/gm Oint Foilpak UD TOP SCH (09:13)
--- NOTE | 2016-11-14 09:14 | CP.PCM.PN ---
<Alex Coyle - Last Filed: 11/14/16 20:15> Subjective - Date & Time of Evaluation Date of Evaluation: 11/14/16 Time of Evaluation: 09:09 - Subjective Subjective: PGY 1 medicine note- Dr. Ying's service Pt seen and examined in no acute distress. Patient is clinically the same. No apparent fever or chills noted. Patient is minimally responsive to tactile stimuli and nonresponsive to verbal stimuli secondary to anoxic brain injury. Patient turned every two hours per nursing team to prevent sacral ulcers. ROS could not be obtained at this time due to presentation. Objective - Vital Signs/Intake and Output Vital Signs (last 24 hours): Temp Pulse Resp BP Pulse Ox 98.7 F 74 18 109/76 100 11/14/16 08:00 11/14/16 08:00 11/14/16 08:00 11/14/16 08:00 11/14/16 08:00 Intake and Output: 11/14/16 11/14/16 06:59 18:59 Intake Total 960 Output Total 401 Balance 559 - Medications Medications: Current Medications Aspirin (Aspirin Chewable) 81 mg PEG DAILY [facility] Last Admin: 11/14/16 09:12 Dose: 81 mg Bacitracin (Bacitracin) 1 ea TOP DAILY [facility] Last Admin: 11/14/16 09:13 Dose: 1 ea Bethanechol Chloride (Urecholine) 10 mg PO TID [facility] Last Admin: 11/14/16 09:12 Dose: 10 mg Carvedilol (Coreg) 3.125 mg PEG BID [facility] Last Admin: 11/14/16 09:12 Dose: 3.125 mg Clopidogrel Bisulfate (Plavix) 75 mg PEG DAILY [facility] Last Admin: 11/14/16 09:12 Dose: 75 mg Enoxaparin Sodium (Lovenox) 40 mg SC DAILY [facility] Last Admin: 11/14/16 09:12 Dose: 40 mg Famotidine (Pepcid) 20 mg PEG BID [facility] Last Admin: 11/14/16 09:12 Dose: 20 mg Finasteride (Proscar) 5 mg PEG DAILY [facility] Last Admin: 11/14/16 09:12 Dose: 5 mg Levetiracetam (Keppra) 500 mg PO BID [facility] Last Admin: 11/14/16 09:12 Dose: 500 mg Tamsulosin HCl (Flomax) 0.8 mg PO DAILY [facility] Last Admin: 11/14/16 09:12 Dose: 0.8 mg - Labs Labs: 11/10/16 06:35 11/10/16 06:35 PT 10.6 SECONDS (9.7-12.2) 11/24/15 14:10 INR 1.0 11/24/15 14:10 APTT 25 SECONDS (21-34) 11/24/15 14:10 - Constitutional Appears: No Acute Distress, Chronically Ill - Head Exam Head Exam: ATRAUMATIC - Eye Exam Eye Exam: EOMI - ENT Exam ENT Exam: Mucous Membranes Moist - Neck Exam Neck Exam: absent: Lymphadenopathy Additional comments: trach collar in place c/d/intact with minimal secretions - Respiratory Exam Respiratory Exam: NORMAL BREATHING PATTERN - Cardiovascular Exam Cardiovascular Exam: +S1, +S2 - GI/Abdominal Exam GI & Abdominal Exam: Soft, Normal Bowel Sounds. absent: Tenderness Additional comments: PEG tube in place - Exam Additional comments: condom catheter in place - Extremities Exam Extremities Exam: Normal Capillary Refill Additional comments: warm - Back Exam Back Exam: absent: Full ROM - Neurological Exam Neurological Exam: Awake Additional comments: could not assess - Psychiatric Exam Psychiatric exam: Flat Affect - Skin Skin Exam: Abrasion, Normal Color, Warm Additional comments: right anteromedial thigh abrasion Assessment and Plan - Assessment and Plan (Free Text) Assessment: Anoxic encephalopathy No acute changes, continue weekly labs on Mondays Turn Q2 hours- Continue to monitor- no sacral ulcers noted Continue Isosource feeds through PEG @ reduced rate 60cc/hr per Nutrition recommendations Continue trach suctioning as needed 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 10/29: Healing linear 5 cm fissure with area of erythema Nursing to use barrier to prevent further progression of abrasion Continue to monitor with skin checks and Q2H turning Urinary Retention 11/13: c/w condom catheter - 960 ml Intake, 401 ml Output, continue to monitor to ensure that catheter is properly placed 11/12: c/w condom catheter - 1560 ml Intake, 800 ml Output, continue to monitor to ensure that catheter is properly placed 11/11: c/w condom catheter - 2660 ml Intake, 751 ml Output, continue to monitor 11/10: c/w condom catheter - 780 ml Intake, 400 ml Output, continue to monitor 11/09: c/w condom catheter - 750ml today, continue to monitor 11/05: no retention at this time - c/w condom catheter and urine output monitoring 11/04: continue current management, condom cath in place, fucntional, continue medical mangement 11/03: no urinary retention, condom catheter still functional; flomax and bethanechol renewed today 10/31: no retention today - [place] catheter functioning with 1600c output today 10/29: condom catheter in place draining straw colored urine; no changes from 10/27: Adequate urinary production. 10/24: baker removed - continue to monitor for urinary retention 577cc urine retained 10/20 Baker placed 10/20, will attempt bladder training and removal in 24 hours Flomax 0.8 mg PO daily Proscar 5mg PO daily Bethanecol 10 mg PO TID monitor I's and O's Failure to thrive 11/13: Continue feeds Previous note: Continuous Tube feeds at 65cc/hr goal per nutrition recommendations with 300cc of free water flush q8H Measure weight weekly. Continue to monitor Respiratory failure 11/13: trach collar in place - normal resp pattern, minimal secretions Trach collar in place, with some secretions, will suction when needed, continue with current management. Previous note Continue Current management of trach collar and secretions- continue to suction as needed CAD (coronary artery disease) s/p cardiac stents on 06/13/15 ASA 81mg via PEG daily Coreg 3.125mg PEG BID Plavix 75mg via PEG daily Seizures Keppra 500mg PEG BID for seizure prophylaxis Lower extremity edema Lasix via PEG as needed Prophylactic measure Pepcid 20 mg PEG BID Lovenox 40mg SC daily - renewed 11/03 SCDs Continue to monitor medication administrations and clinical presentation <Donnell Ying - Last Filed: 11/15/16 09:44> Objective - Vital Signs/Intake and Output Vital Signs (last 24 hours): Temp Pulse Resp BP Pulse Ox 98.4 F 66 20 101/66 100 11/15/16 08:05 11/15/16 08:05 11/15/16 08:05 11/15/16 08:05 11/15/16 08:05 Intake and Output: 11/15/16 11/15/16 06:59 18:59 Intake Total 480 680 Output Total 200 1 Balance 280 679 - Medications Medications: Current Medications Aspirin (Aspirin Chewable) 81 mg PEG DAILY [facility] Last Admin: 11/14/16 09:12 Dose: 81 mg Bacitracin (Bacitracin) 1 ea TOP DAILY [facility] Last Admin: 11/14/16 09:13 Dose: 1 ea Bethanechol Chloride (Urecholine) 10 mg PO TID [facility] Last Admin: 11/14/16 18:35 Dose: 10 mg Carvedilol (Coreg) 3.125 mg PEG BID [facility] Last Admin: 11/14/16 18:35 Dose: 3.125 mg Clopidogrel Bisulfate (Plavix) 75 mg PEG DAILY [facility] Last Admin: 11/14/16 09:12 Dose: 75 mg Enoxaparin Sodium (Lovenox) 40 mg SC DAILY [facility] Last Admin: 11/14/16 09:12 Dose: 40 mg Famotidine (Pepcid) 20 mg PEG BID [facility] Last Admin: 11/14/16 18:35 Dose: 20 mg Finasteride (Proscar) 5 mg PEG DAILY [facility] Last Admin: 11/14/16 09:12 Dose: 5 mg Levetiracetam (Keppra) 500 mg PO BID [facility] Last Admin: 11/14/16 18:35 Dose: 500 mg Tamsulosin HCl (Flomax) 0.8 mg PO DAILY [facility] Last Admin: 11/14/16 09:12 Dose: 0.8 mg - Labs Labs: 11/10/16 06:35 11/10/16 06:35 PT 10.6 SECONDS (9.7-12.2) 11/24/15 14:10 INR 1.0 11/24/15 14:10 APTT 25 SECONDS (21-34) 11/24/15 14:10 Attending/Attestation - Attestation I have personally seen and examined this patient.: Yes I have fully participated in the care of the patient.: Yes I have reviewed all pertinent clinical information, including history, physical exam and plan: Yes Notes (Text): 11/15/16 09:43 Patient was seen and examined at bedside with the resident No change in clinical condition Continue current management Continue condom catheter Avoid Baker's catheter due to risk of infection Continue local care of the blisters on the right eye Discussed the plan of care with the resident and with the nursing staff Agree with the above history and physical and assessment/plan by the resident
--- NOTE | 2016-11-15 01:40 | CP.PCM.PN ---
<WesleyMee ramos - Last Filed: 11/15/16 01:37> Subjective - Date & Time of Evaluation Date of Evaluation: 11/15/16 Time of Evaluation: 01:37 - Subjective Subjective: Pt seen and examined in no acute distress. Patient is clinically the same. Patient is minimally responsive to tactile stimuli and nonresponsive to verbal stimuli secondary to anoxic brain injury. Patient turned every two hours per nursing team to prevent sacral ulcers. ROS could not be obtained due to presentation. Objective - Vital Signs/Intake and Output Vital Signs (last 24 hours): Temp Pulse Resp BP Pulse Ox 97.5 F L 76 20 119/79 96 11/14/16 23:48 11/14/16 23:48 11/14/16 23:48 11/14/16 23:48 11/14/16 23:48 Intake and Output: 11/14/16 11/15/16 18:59 06:59 Intake Total 268 480 Output Total 200 Balance 268 280 - Medications Medications: Current Medications Aspirin (Aspirin Chewable) 81 mg PEG DAILY [facility] Last Admin: 11/14/16 09:12 Dose: 81 mg Bacitracin (Bacitracin) 1 ea TOP DAILY [facility] Last Admin: 11/14/16 09:13 Dose: 1 ea Bethanechol Chloride (Urecholine) 10 mg PO TID [facility] Last Admin: 11/14/16 18:35 Dose: 10 mg Carvedilol (Coreg) 3.125 mg PEG BID [facility] Last Admin: 11/14/16 18:35 Dose: 3.125 mg Clopidogrel Bisulfate (Plavix) 75 mg PEG DAILY [facility] Last Admin: 11/14/16 09:12 Dose: 75 mg Enoxaparin Sodium (Lovenox) 40 mg SC DAILY [facility] Last Admin: 11/14/16 09:12 Dose: 40 mg Famotidine (Pepcid) 20 mg PEG BID [facility] Last Admin: 11/14/16 18:35 Dose: 20 mg Finasteride (Proscar) 5 mg PEG DAILY [facility] Last Admin: 11/14/16 09:12 Dose: 5 mg Levetiracetam (Keppra) 500 mg PO BID [facility] Last Admin: 11/14/16 18:35 Dose: 500 mg Tamsulosin HCl (Flomax) 0.8 mg PO DAILY [facility] Last Admin: 11/14/16 09:12 Dose: 0.8 mg - Labs Labs: 12/19/16 06:35 11/10/16 06:35 PT 10.6 SECONDS (9.7-12.2) 11/24/15 14:10 INR 1.0 11/24/15 14:10 APTT 25 SECONDS (21-34) 11/24/15 14:10 - Constitutional Appears: No Acute Distress, Chronically Ill - Head Exam Head Exam: ATRAUMATIC, NORMAL INSPECTION, NORMOCEPHALIC - Eye Exam Eye Exam: Normal appearance, PERRL - ENT Exam ENT Exam: Mucous Membranes Moist - Neck Exam Neck Exam: absent: Lymphadenopathy Additional comments: trach collar in place, minimal secretions - Respiratory Exam Respiratory Exam: NORMAL BREATHING PATTERN - Cardiovascular Exam Cardiovascular Exam: +S1, +S2 - GI/Abdominal Exam GI & Abdominal Exam: Soft, Normal Bowel Sounds. absent: Tenderness - Exam Additional comments: condom catheter in place - Extremities Exam Extremities Exam: Normal Capillary Refill Additional comments: prevalon boots - Neurological Exam Neurological Exam: Awake - Psychiatric Exam Psychiatric exam: Flat Affect - Skin Skin Exam: Normal Color Assessment and Plan - Assessment and Plan (Free Text) Assessment: 1. Anoxic encephalopathy No acute changes, continue weekly labs on Mondays Turn Q2 hours- Continue to monitor- no sacral ulcers noted Continue Isosource feeds through PEG @ reduced rate 60cc/hr per Nutrition recommendations Continue trach suctioning as needed Pending emt intermediate facility placement 2. Hypoalbuminemia Prostat 30mL 1x / day 3. Sacral Ulcers Resolved 11/13: c/w wound care management and turn Q2 10/30: No acute changes, healing linear 5 cm fissure, continue to turn patient Q2H. 10/29: Healing linear 5 cm fissure with area of erythema Nursing to use barrier to prevent further progression of abrasion Continue to monitor with skin checks and Q2H turning 4. Urinary Retention 11/13: c/w condom catheter - 960 ml Intake, 401 ml Output, continue to monitor to ensure that catheter is properly placed 11/12: c/w condom catheter - 1560 ml Intake, 800 ml Output, continue to monitor to ensure that catheter is properly placed 11/11: c/w condom catheter - 2660 ml Intake, 751 ml Output, continue to monitor 11/10: c/w condom catheter - 780 ml Intake, 400 ml Output, continue to monitor 11/09: c/w condom catheter - 750ml today, continue to monitor 11/05: no retention at this time - c/w condom catheter and urine output monitoring 11/04: continue current management, condom cath in place, fucntional, continue medical mangement 11/03: no urinary retention, condom catheter still functional; flomax and bethanechol renewed today 10/31: no retention today - [place] catheter functioning with 1600c output today 10/29: condom catheter in place draining straw colored urine; no changes from 10/27: Adequate urinary production. 10/24: baker removed - continue to monitor for urinary retention 577cc urine retained 10/20 Baker placed 10/20, will attempt bladder training and removal in 24 hours Flomax 0.8 mg PO daily Proscar 5mg PO daily Bethanecol 10 mg PO TID monitor I's and O's 5. Failure to thrive 11/13: Continue feeds Previous note: Continuous Tube feeds at 65cc/hr goal per nutrition recommendations with 300cc of free water flush q8H Measure weight weekly. Continue to monitor 6. Respiratory failure 11/13: trach collar in place - normal resp pattern, minimal secretions Trach collar in place, with some secretions, will suction when needed, continue with current management. Previous note Continue Current management of trach collar and secretions- continue to suction as needed 7. CAD (coronary artery disease) s/p cardiac stents on 06/13/15 ASA 81mg via PEG daily Coreg 3.125mg PEG BID Plavix 75mg via PEG daily 8. Seizures Keppra 500mg PEG BID for seizure prophylaxis 9. Lower extremity edema Lasix via PEG as needed 10. Prophylactic measure Pepcid 20 mg PEG BID Lovenox 40mg SC daily - renewed 11/03 SCDs Continue to monitor medication administrations and clinical presentation <Donnell Ying - Last Filed: 11/15/16 14:46> Objective - Vital Signs/Intake and Output Vital Signs (last 24 hours): Temp Pulse Resp BP Pulse Ox 98.4 F 66 20 101/66 100 11/15/16 08:05 11/15/16 08:05 11/15/16 08:05 11/15/16 08:05 11/15/16 08:05 Intake and Output: 11/15/16 11/15/16 06:59 18:59 Intake Total 480 680 Output Total 200 1 Balance 280 679 - Medications Medications: Current Medications Aspirin (Aspirin Chewable) 81 mg PEG DAILY [facility] Last Admin: 11/15/16 10:49 Dose: 81 mg Bacitracin (Bacitracin) 1 ea TOP DAILY [facility] Last Admin: 11/15/16 10:49 Dose: 1 ea Bethanechol Chloride (Urecholine) 10 mg PO TID [facility] Last Admin: 11/15/16 13:21 Dose: 10 mg Carvedilol (Coreg) 3.125 mg PEG BID [facility] Last Admin: 11/15/16 10:49 Dose: 3.125 mg Clopidogrel Bisulfate (Plavix) 75 mg PEG DAILY [facility] Last Admin: 11/15/16 10:49 Dose: 75 mg Enoxaparin Sodium (Lovenox) 40 mg SC DAILY [facility] Last Admin: 11/15/16 10:50 Dose: 40 mg Famotidine (Pepcid) 20 mg PEG BID [facility] Last Admin: 11/15/16 10:49 Dose: 20 mg Finasteride (Proscar) 5 mg PEG DAILY [facility] Last Admin: 11/15/16 10:49 Dose: 5 mg Levetiracetam (Keppra) 500 mg PO BID [facility] Last Admin: 11/15/16 10:49 Dose: 500 mg Tamsulosin HCl (Flomax) 0.8 mg PO DAILY [facility] Last Admin: 11/15/16 10:49 Dose: 0.8 mg - Labs Labs: 11/10/16 06:35 11/10/16 06:35 PT 10.6 SECONDS (9.7-12.2) 11/24/15 14:10 INR 1.0 11/24/15 14:10 APTT 25 SECONDS (21-34) 11/24/15 14:10 Attending/Attestation - Attestation I have personally seen and examined this patient.: Yes I have fully participated in the care of the patient.: Yes I have reviewed all pertinent clinical information, including history, physical exam and plan: Yes Notes (Text): 11/15/16 14:46 Patient was seen and examined at bedside No change in clinical condition Continue current management
[2016-11-15] MEDS: Bacitracin 500 Units/gm Oint Foilpak UD TOP SCH (10:49)
[2016-11-15] MEDS: Enoxaparin 40 mg Syringe SC SCH (10:50)
--- NOTE | 2016-11-16 00:46 | CP.PCM.PN ---
<AnkitaMee - Last Filed: 11/16/16 00:43> Subjective - Date & Time of Evaluation Date of Evaluation: 11/16/16 Time of Evaluation: 00:46 - Subjective Subjective: Pt seen and examined in no acute distress. Patient is clinically the same. Patient is minimally responsive to tactile stimuli and nonresponsive to verbal stimuli secondary to anoxic brain injury. Patient turned every two hours per nursing team to prevent sacral ulcers. ROS could not be obtained due to presentation. Objective - Vital Signs/Intake and Output Vital Signs (last 24 hours): Temp Pulse Resp BP Pulse Ox 97.3 F L 69 20 109/71 96 11/15/16 15:05 11/16/16 00:29 11/15/16 15:05 11/15/16 15:05 11/15/16 15:05 Intake and Output: 11/15/16 11/16/16 18:59 06:59 Intake Total 1460 780 Output Total 3 150 Balance 1457 630 - Medications Medications: Current Medications Aspirin (Aspirin Chewable) 81 mg PEG DAILY [facility] Last Admin: 11/15/16 10:49 Dose: 81 mg Bacitracin (Bacitracin) 1 ea TOP DAILY [facility] Last Admin: 11/15/16 10:49 Dose: 1 ea Bethanechol Chloride (Urecholine) 10 mg PO TID [facility] Last Admin: 11/15/16 17:19 Dose: 10 mg Carvedilol (Coreg) 3.125 mg PEG BID [facility] Last Admin: 11/15/16 17:19 Dose: 3.125 mg Clopidogrel Bisulfate (Plavix) 75 mg PEG DAILY [facility] Last Admin: 11/15/16 10:49 Dose: 75 mg Enoxaparin Sodium (Lovenox) 40 mg SC DAILY [facility] Last Admin: 11/15/16 10:50 Dose: 40 mg Famotidine (Pepcid) 20 mg PEG BID [facility] Last Admin: 11/15/16 17:19 Dose: 20 mg Finasteride (Proscar) 5 mg PEG DAILY [facility] Last Admin: 11/15/16 10:49 Dose: 5 mg Levetiracetam (Keppra) 500 mg PO BID [facility] Last Admin: 11/15/16 17:19 Dose: 500 mg Tamsulosin HCl (Flomax) 0.8 mg PO DAILY [facility] Last Admin: 11/15/16 10:49 Dose: 0.8 mg - Labs Labs: 11/10/16 06:35 11/10/16 06:35 PT 10.6 SECONDS (9.7-12.2) 11/24/15 14:10 INR 1.0 11/24/15 14:10 APTT 25 SECONDS (21-34) 11/24/15 14:10 - Constitutional Appears: No Acute Distress, Chronically Ill - Head Exam Head Exam: ATRAUMATIC, NORMAL INSPECTION, NORMOCEPHALIC - Eye Exam Eye Exam: Normal appearance, PERRL - ENT Exam ENT Exam: Mucous Membranes Moist - Neck Exam Additional comments: trach collar in place - Respiratory Exam Respiratory Exam: Clear to Ausculation Bilateral, NORMAL BREATHING PATTERN - Cardiovascular Exam Cardiovascular Exam: +S1, +S2 - GI/Abdominal Exam GI & Abdominal Exam: Soft, Normal Bowel Sounds Additional comments: PEG in place - Exam Additional comments: [place] condom catheter in place - Extremities Exam Extremities Exam: Normal Inspection Additional comments: prevalon boots on - Neurological Exam Neurological Exam: Awake - Psychiatric Exam Psychiatric exam: Flat Affect - Skin Skin Exam: Normal Color Assessment and Plan - Assessment and Plan (Free Text) Assessment: 1. Anoxic encephalopathy No acute changes, continue weekly labs on Mondays Turn Q2 hours- Continue to monitor- no sacral ulcers noted Continue Isosource feeds through PEG @ reduced rate 60cc/hr per Nutrition recommendations Continue trach suctioning as needed Pending correction facility placement 2. Hypoalbuminemia Prostat 30mL 1x / day 3. Sacral Ulcers Resolved 11/16: c/w wound care management and turn Q2 10/30: No acute changes, healing linear 5 cm fissure, continue to turn patient Q2H. 10/29: Healing linear 5 cm fissure with area of erythema Nursing to use barrier to prevent further progression of abrasion Continue to monitor with skin checks and Q2H turning 4. Urinary Retention 11/16: c/w condom catheter - 748 ml Intake, 200 ml Output, continue to monitor to ensure that catheter is properly placed 11/13: c/w condom catheter - 960 ml Intake, 401 ml Output, continue to monitor to ensure that catheter is properly placed 11/12: c/w condom catheter - 1560 ml Intake, 800 ml Output, continue to monitor to ensure that catheter is properly placed 577cc urine retained 10/20 Yoo placed 10/20, will attempt bladder training and removal in 24 hours Flomax 0.8 mg PO daily Proscar 5mg PO daily Bethanecol 10 mg PO TID monitor I's and O's 5. Failure to thrive 11/16: Continue feeds Previous note: Continuous Tube feeds at 65cc/hr goal per nutrition recommendations with 300cc of free water flush q8H Measure weight weekly. Continue to monitor 6. Respiratory failure 11/16: trach collar in place - normal resp pattern, minimal secretions Trach collar in place, with some secretions, will suction when needed, continue with current management. Previous note Continue Current management of trach collar and secretions- continue to suction as needed 7. CAD (coronary artery disease) s/p cardiac stents on 06/13/15 ASA 81mg via PEG daily Coreg 3.125mg PEG BID Plavix 75mg via PEG daily 8. Seizures Keppra 500mg PEG BID for seizure prophylaxis 9. Lower extremity edema Lasix via PEG as needed 10. Prophylactic measure Pepcid 20 mg PEG BID Lovenox 40mg SC daily - renewed 11/03 SCDs Continue to monitor medication administrations and clinical presentation <Donnell Ying - Last Filed: 11/16/16 16:42> Objective - Vital Signs/Intake and Output Vital Signs (last 24 hours): Temp Pulse Resp BP Pulse Ox 98.5 F 96 H 20 110/71 97 11/16/16 08:10 11/16/16 08:10 11/16/16 08:10 11/16/16 08:10 11/16/16 08:10 Intake and Output: 11/16/16 11/16/16 06:59 18:59 Intake Total 1560 780 Output Total 550 1 Balance 1010 779 - Medications Medications: Current Medications Aspirin (Aspirin Chewable) 81 mg PEG DAILY [facility] Last Admin: 11/16/16 09:31 Dose: 81 mg Bacitracin (Bacitracin) 1 ea TOP DAILY [facility] Last Admin: 11/16/16 09:35 Dose: 1 ea Bethanechol Chloride (Urecholine) 10 mg PO TID [facility] Last Admin: 11/16/16 13:02 Dose: 10 mg Carvedilol (Coreg) 3.125 mg PEG BID [facility] Last Admin: 11/16/16 09:32 Dose: 3.125 mg Clopidogrel Bisulfate (Plavix) 75 mg PEG DAILY [facility] Last Admin: 11/16/16 09:31 Dose: 75 mg Enoxaparin Sodium (Lovenox) 40 mg SC DAILY [facility] Last Admin: 11/16/16 09:32 Dose: 40 mg Famotidine (Pepcid) 20 mg PEG BID [facility] Last Admin: 11/16/16 09:32 Dose: 20 mg Finasteride (Proscar) 5 mg PEG DAILY [facility] Last Admin: 11/16/16 09:32 Dose: 5 mg Levetiracetam (Keppra) 500 mg PO BID [facility] Last Admin: 11/16/16 09:31 Dose: 500 mg Tamsulosin HCl (Flomax) 0.8 mg PO DAILY [facility] Last Admin: 11/16/16 09:31 Dose: 0.8 mg - Labs Labs: 11/10/16 06:35 11/10/16 06:35 PT 10.6 SECONDS (9.7-12.2) 11/24/15 14:10 INR 1.0 11/24/15 14:10 APTT 25 SECONDS (21-34) 11/24/15 14:10 Attending/Attestation - Attestation I have personally seen and examined this patient.: Yes I have fully participated in the care of the patient.: Yes I have reviewed all pertinent clinical information, including history, physical exam and plan: Yes Notes (Text): 11/16/16 16:42 Patient was seen and examined at bedside No change in clinical condition Continue current management Center and position every 2 hours to prevent decubitus ulcers Continue GI and due to prophylaxis Discussed with nursing staff
[2016-11-16] MEDS: Enoxaparin 40 mg Syringe SC SCH (09:32)
[2016-11-16] MEDS: Bacitracin 500 Units/gm Oint Foilpak UD TOP SCH (09:35)
--- NOTE | 2016-11-17 00:09 | CP.PCM.PN ---
<Ivania Bernal - Last Filed: 11/17/16 00:06> Subjective - Date & Time of Evaluation Date of Evaluation: 11/17/16 Time of Evaluation: 12:10 - Subjective Subjective: Pt seen and examined in no acute distress. Patient is clinically the same. Patient is minimally responsive to tactile stimuli and nonresponsive to verbal stimuli secondary to anoxic brain injury. Patient turned every two hours per nursing team to prevent sacral ulcers. ROS could not be obtained due to presentation. Objective - Vital Signs/Intake and Output Vital Signs (last 24 hours): Temp Pulse Resp BP Pulse Ox 98.2 F 76 20 123/73 100 11/16/16 15:00 11/16/16 15:00 11/16/16 15:00 11/16/16 15:00 11/16/16 15:00 Intake and Output: 11/16/16 11/17/16 18:59 06:59 Intake Total 780 780 Output Total 1 400 Balance 779 380 - Medications Medications: Current Medications Aspirin (Aspirin Chewable) 81 mg PEG DAILY [facility] Last Admin: 11/16/16 09:31 Dose: 81 mg Bacitracin (Bacitracin) 1 ea TOP DAILY [facility] Last Admin: 11/16/16 09:35 Dose: 1 ea Bethanechol Chloride (Urecholine) 10 mg PO TID [facility] Last Admin: 11/16/16 17:12 Dose: 10 mg Carvedilol (Coreg) 3.125 mg PEG BID [facility] Last Admin: 11/16/16 17:12 Dose: 3.125 mg Clopidogrel Bisulfate (Plavix) 75 mg PEG DAILY [facility] Last Admin: 11/16/16 09:31 Dose: 75 mg Enoxaparin Sodium (Lovenox) 40 mg SC DAILY [facility] Last Admin: 11/16/16 09:32 Dose: 40 mg Famotidine (Pepcid) 20 mg PEG BID [facility] Last Admin: 11/16/16 17:12 Dose: 20 mg Finasteride (Proscar) 5 mg PEG DAILY [facility] Last Admin: 11/16/16 09:32 Dose: 5 mg Levetiracetam (Keppra) 500 mg PO BID [facility] Last Admin: 11/16/16 17:12 Dose: 500 mg Tamsulosin HCl (Flomax) 0.8 mg PO DAILY [facility] Last Admin: 11/16/16 09:31 Dose: 0.8 mg - Labs Labs: 11/10/16 06:35 11/10/16 06:35 PT 10.6 SECONDS (9.7-12.2) 11/24/15 14:10 INR 1.0 11/24/15 14:10 APTT 25 SECONDS (21-34) 11/24/15 14:10 - Constitutional Appears: Non-toxic, No Acute Distress, Chronically Ill - Head Exam Head Exam: ATRAUMATIC, NORMOCEPHALIC - Eye Exam Eye Exam: EOMI, PERRL - ENT Exam ENT Exam: Mucous Membranes Moist - Neck Exam Additional comments: trach collar in place - Respiratory Exam Respiratory Exam: Clear to Ausculation Bilateral, NORMAL BREATHING PATTERN. absent: Respiratory Distress - Cardiovascular Exam Cardiovascular Exam: REGULAR RHYTHM, +S1, +S2 - GI/Abdominal Exam GI & Abdominal Exam: Soft, Normal Bowel Sounds. absent: Distended, Firm, Guarding, Tenderness Additional comments: PEG in place - Exam Additional comments: [place] condom catheter in place - Extremities Exam Additional comments: prevalon boots on - Back Exam Back Exam: absent: NORMAL INSPECTION Additional comments: sacral ulcers - Neurological Exam Neurological Exam: Awake. absent: Alert, CN II-XII Intact, Oriented x3 - Psychiatric Exam Psychiatric exam: Flat Affect - Skin Skin Exam: Dry, Normal Color, Warm. absent: Intact Assessment and Plan - Assessment and Plan (Free Text) Assessment: 1. Anoxic encephalopathy No acute changes, continue weekly labs on Mondays Turn Q2 hours- Continue to monitor- no sacral ulcers noted Continue Isosource feeds through PEG @ reduced rate 60cc/hr per Nutrition recommendations Continue trach suctioning as needed Pending intermediate manager facility placement 2. Hypoalbuminemia Prostat 30mL 1x / day 3. Sacral Ulcers Resolved 11/16: c/w wound care management and turn Q2 10/30: No acute changes, healing linear 5 cm fissure, continue to turn patient Q2H. 10/29: Healing linear 5 cm fissure with area of erythema Nursing to use barrier to prevent further progression of abrasion Continue to monitor with skin checks and Q2H turning 4. Urinary Retention 11/16: c/w condom catheter - 748 ml Intake, 200 ml Output, continue to monitor to ensure that catheter is properly placed 11/13: c/w condom catheter - 960 ml Intake, 401 ml Output, continue to monitor to ensure that catheter is properly placed 11/12: c/w condom catheter - 1560 ml Intake, 800 ml Output, continue to monitor to ensure that catheter is properly placed 577cc urine retained 10/20 Yoo placed 10/20, will attempt bladder training and removal in 24 hours Flomax 0.8 mg PO daily Proscar 5mg PO daily Bethanecol 10 mg PO TID monitor I's and O's 5. Failure to thrive 11/16: Continue feeds Previous note: Continuous Tube feeds at 65cc/hr goal per nutrition recommendations with 300cc of free water flush q8H Measure weight weekly. Continue to monitor 6. Respiratory failure 11/16: trach collar in place - normal resp pattern, minimal secretions Trach collar in place, with some secretions, will suction when needed, continue with current management. Previous note Continue Current management of trach collar and secretions- continue to suction as needed 7. CAD (coronary artery disease) s/p cardiac stents on 06/13/15 ASA 81mg via PEG daily Coreg 3.125mg PEG BID Plavix 75mg via PEG daily 8. Seizures Keppra 500mg PEG BID for seizure prophylaxis 9. Lower extremity edema Lasix via PEG as needed 10. Prophylactic measure Pepcid 20 mg PEG BID Lovenox 40mg SC daily - renewed 11/03 SCDs Continue to monitor medication administrations and clinical presentation <Nathaniel Beth - Last Filed: 11/17/16 22:29> Objective - Vital Signs/Intake and Output Vital Signs (last 24 hours): Temp Pulse Resp BP Pulse Ox 98.0 F 85 20 114/75 100 11/17/16 15:00 11/17/16 15:00 11/17/16 15:00 11/17/16 15:00 11/17/16 15:00 Intake and Output: 11/17/16 11/18/16 18:59 06:59 Intake Total 480 780 Output Total 100 Balance 380 780 - Medications Medications: Current Medications Aspirin (Aspirin Chewable) 81 mg PEG DAILY [facility] Last Admin: 11/17/16 10:50 Dose: 81 mg Bacitracin (Bacitracin) 1 ea TOP DAILY [facility] Last Admin: 11/16/16 09:35 Dose: 1 ea Bethanechol Chloride (Urecholine) 10 mg PO TID [facility] Last Admin: 11/17/16 17:49 Dose: 10 mg Carvedilol (Coreg) 3.125 mg PEG BID [facility] Last Admin: 11/17/16 17:49 Dose: 3.125 mg Clopidogrel Bisulfate (Plavix) 75 mg PEG DAILY [facility] Last Admin: 11/17/16 10:52 Dose: 75 mg Enoxaparin Sodium (Lovenox) 40 mg SC DAILY [facility] Last Admin: 11/17/16 10:50 Dose: 40 mg Famotidine (Pepcid) 20 mg PEG BID [facility] Last Admin: 11/17/16 17:49 Dose: 20 mg Finasteride (Proscar) 5 mg PEG DAILY [facility] Last Admin: 11/17/16 10:51 Dose: 5 mg Levetiracetam (Keppra) 500 mg PO BID [facility] Last Admin: 11/17/16 17:49 Dose: 500 mg Tamsulosin HCl (Flomax) 0.8 mg PO DAILY [facility] Last Admin: 11/17/16 10:50 Dose: 0.8 mg - Labs Labs: 11/17/16 07:22 11/17/16 07:22 PT 10.6 SECONDS (9.7-12.2) 11/24/15 14:10 INR 1.0 11/24/15 14:10 APTT 25 SECONDS (21-34) 11/24/15 14:10 Attending/Attestation - Attestation I have personally seen and examined this patient.: Yes I have fully participated in the care of the patient.: Yes I have reviewed all pertinent clinical information, including history, physical exam and plan: Yes Notes (Text): Patient admitted s/p cardiac arrest, with ensuing anoxic encephalopathy; prolonged hospital course due to inability to place patient; Active issues include: Hypernatremia; relatively stable although serum Na increased mildly to 143; will ensure 100 cc free H20 flushes q8h; Hypoalbuminiemia; resolved; serum albumin 3.6; continue prostat; increase tube feeds to 65 cc/hr; CAD s/p WILLIE; continue ASA/plavix; Sacral Ulcer; stage I; improved; minute areas of blanching erythema; continue protective ointment and frequent re-positioning; Urinary retention; resolved; seems to have responded well to bethanechol; continue; periodic bladder scans (every 2-3 days). 11/17/16 22:24
[2016-11-17 07:39] LABS: BASO % 0.4 % (0.0-2.0); EOS # 0.3 K/uL (0.0-0.7); EOS % 2.9 % (0.0-4.0); HEMOGLOBIN 12.5 g/dL (12.0-18.0); LYMPH % 19.7 % (20.0-40.0); MEAN CELL VOLUME 88.3 fL (80.0-94.0); MEAN CORPUSCULAR HEMOGLOBIN 28.5 pg (27.0-31.0); MEAN CORPUSCULAR HGB CONC 32.3 g/dL (33.0-37.0); MEAN PLATELET VOLUME 9.5 fL (7.2-11.7); MONO # 1.1 K/uL (0.0-0.8); MONO % 11.3 % (0.0-10.0); NEUT # 6.5 K/uL (1.8-7.0); NEUT % 65.7 % (50.0-75.0); NRBC % 0.1 % (0.0-2.0); RBC 4.37 Mil/uL (4.40-5.90); RED CELL DISTRIBUTION WIDTH 15.9 % (11.5-14.5)
[2016-11-17 07:59] LABS: ALBUMIN 3.6 g/dL (3.5-5.0)
[2016-11-17 08:01] LABS: GFR NON-AFRICAN AMERICAN > 60
[2016-11-17 08:02] LABS: ALB/GLOB RATIO 0.9 (1.0-2.1); ALT/SGPT 49 U/L (21-72); AST/SGOT 24 U/L (17-59); BLOOD UREA NITROGEN 26 mg/dL (9-20); CALCIUM 8.4 mg/dl (8.6-10.4)
[2016-11-17] MEDS: Enoxaparin 40 mg Syringe SC SCH (10:50)
--- NOTE | 2016-11-18 09:45 | CP.PCM.PN ---
<JonnaLesliemeerakevin - Last Filed: 11/18/16 20:12> Subjective - Date & Time of Evaluation Date of Evaluation: 11/18/16 Time of Evaluation: 09:05 - Subjective Subjective: PGY 1 medicine note- 's service Pt seen and examined in no acute distress. Patient clinically presents the same. No apparent fever or chills noted per nursing. Patient is minimally responsive to tactile stimuli and nonresponsive to verbal stimuli secondary to anoxic brain injury which occurred over a year ago. Patient is turned Q2H per nursing team to prevent bed sores. A ROS could not be obtained at this time due to presentation. Objective - Vital Signs/Intake and Output Vital Signs (last 24 hours): Temp Pulse Resp BP Pulse Ox 98.9 F 84 20 98/62 L 99 11/18/16 07:46 11/18/16 09:01 11/18/16 07:46 11/18/16 07:46 11/18/16 07:46 Intake and Output: 11/18/16 11/18/16 06:59 18:59 Intake Total 780 780 Output Total 250 Balance 780 530 - Medications Medications: Current Medications Aspirin (Aspirin Chewable) 81 mg PEG DAILY [facility] Last Admin: 11/17/16 10:50 Dose: 81 mg Bacitracin (Bacitracin) 1 ea TOP DAILY [facility] Last Admin: 11/16/16 09:35 Dose: 1 ea Bethanechol Chloride (Urecholine) 10 mg PO TID [facility] Last Admin: 11/17/16 17:49 Dose: 10 mg Carvedilol (Coreg) 3.125 mg PEG BID [facility] Last Admin: 11/17/16 17:49 Dose: 3.125 mg Clopidogrel Bisulfate (Plavix) 75 mg PEG DAILY [facility] Last Admin: 11/17/16 10:52 Dose: 75 mg Enoxaparin Sodium (Lovenox) 40 mg SC DAILY [facility] Last Admin: 11/17/16 10:50 Dose: 40 mg Famotidine (Pepcid) 20 mg PEG BID [facility] Last Admin: 11/17/16 17:49 Dose: 20 mg Finasteride (Proscar) 5 mg PEG DAILY [facility] Last Admin: 11/17/16 10:51 Dose: 5 mg Levetiracetam (Keppra) 500 mg PO BID [facility] Last Admin: 11/17/16 17:49 Dose: 500 mg Tamsulosin HCl (Flomax) 0.8 mg PO DAILY [facility] Last Admin: 11/17/16 10:50 Dose: 0.8 mg - Labs Labs: 11/17/16 07:22 11/17/16 07:22 PT 10.6 SECONDS (9.7-12.2) 11/24/15 14:10 INR 1.0 11/24/15 14:10 APTT 25 SECONDS (21-34) 11/24/15 14:10 - Constitutional Appears: No Acute Distress, Chronically Ill - Head Exam Head Exam: ATRAUMATIC - Eye Exam Eye Exam: EOMI - ENT Exam ENT Exam: Mucous Membranes Moist - Neck Exam Neck Exam: absent: Lymphadenopathy Additional comments: trach collar in place c/d/i with minimal secretions - Respiratory Exam Respiratory Exam: NORMAL BREATHING PATTERN - Cardiovascular Exam Cardiovascular Exam: +S1, +S2 - GI/Abdominal Exam GI & Abdominal Exam: Soft, Normal Bowel Sounds. absent: Guarding Additional comments: PEG tube in place with dressing intact - Exam Additional comments: condom catheter in place - Extremities Exam Extremities Exam: absent: Full ROM Additional comments: warm with boots in place to prevent ulceration of the heels - Neurological Exam Neurological Exam: Altered. absent: Oriented x3 - Psychiatric Exam Psychiatric exam: Flat Affect - Skin Skin Exam: Dry, Intact, Warm Assessment and Plan - Assessment and Plan (Free Text) Assessment: Anoxic encephalopathy No acute changes, continue weekly labs on Mondays Turn Q2 hours- Continue to monitor- no sacral ulcers noted Continue Isosource feeds through PEG @ reduced rate 60cc/hr per Nutrition recommendations Continue trach suctioning as needed Pending prison facility placement Hypoalbuminemia Resolved Prostat 30mL 1x / day Sacral Ulcers Resolved 11/18: Stage 1 ulcer- healed. Apply ointment daily to sacral area to prevent ulceration 11/16: c/w wound care management and turn Q2 10/30: No acute changes, healing linear 5 cm fissure, continue to turn patient Q2H. 10/29: Healing linear 5 cm fissure with area of erythema Nursing to use barrier to prevent further progression of abrasion Continue to monitor with skin checks and Q2H turning Urinary Retention 11/18:c/w condom catheter - 1260 ml Intake, 100 ml Output, continue to monitor to ensure that catheter is properly placed; Bladder scans every 2 days; nursing communication placed 11/16: c/w condom catheter - 748 ml Intake, 200 ml Output, continue to monitor to ensure that catheter is properly placed 11/13: c/w condom catheter - 960 ml Intake, 401 ml Output, continue to monitor to ensure that catheter is properly placed 11/12: c/w condom catheter - 1560 ml Intake, 800 ml Output, continue to monitor to ensure that catheter is properly placed 577cc urine retained 10/20 Proscar 5mg PO daily Bethanecol 10 mg PO TID monitor I's and O's Hypernatremia 143 on 11/18 Stable Continue free water flushes of 100 cc Q8h Continue to monitor weekly labs Failure to thrive 11/18: Continue feeds Previous note: Continuous Tube feeds at 65cc/hr goal per nutrition recommendations with 100cc of free water flush q8H Measure weight weekly. Continue to monitor Respiratory failure 11/18: trach collar in place - normal resp pattern, minimal secretions Trach collar in place, with some secretions, will suction when needed, continue with current management. Previous note Continue Current management of trach collar and secretions- continue to suction as needed CAD (coronary artery disease) s/p cardiac stents on 06/13/15 ASA 81mg via PEG daily Coreg 3.125mg PEG BID Plavix 75mg- Discontinued as it has been over 1 year. Seizures Keppra 500mg PEG BID for seizure prophylaxis Lower extremity edema Lasix via PEG as needed Prophylactic measure Pepcid 20 mg PEG BID Lovenox 40mg SC daily - renewed 11/03 SCDs Continue to monitor medication administrations and clinical presentation <Nathaniel Beth - Last Filed: 11/19/16 07:53> Objective - Vital Signs/Intake and Output Vital Signs (last 24 hours): Temp Pulse Resp BP Pulse Ox 97.9 F 87 20 109/72 99 11/19/16 07:14 11/19/16 07:14 11/19/16 07:14 11/19/16 07:14 11/19/16 07:14 Intake and Output: 11/19/16 11/19/16 06:59 18:59 Intake Total 1340 Output Total 700 Balance 640 - Medications Medications: Current Medications Bacitracin (Bacitracin) 1 ea TOP DAILY [facility] Last Admin: 11/16/16 09:35 Dose: 1 ea Bethanechol Chloride (Urecholine) 10 mg PEG TID [facility] Carvedilol (Coreg) 3.125 mg PEG BID [facility] Last Admin: 11/18/16 17:38 Dose: 3.125 mg Enoxaparin Sodium (Lovenox) 40 mg SC DAILY [facility] Last Admin: 11/18/16 11:02 Dose: 40 mg Famotidine (Pepcid) 20 mg PEG BID [facility] Last Admin: 11/18/16 17:39 Dose: 20 mg Finasteride (Proscar) 5 mg PEG DAILY [facility] Last Admin: 11/18/16 11:05 Dose: 5 mg Levetiracetam (Keppra) 500 mg PO BID [facility] Last Admin: 11/18/16 17:39 Dose: 500 mg - Labs Labs: 11/17/16 07:22 11/17/16 07:22 PT 10.6 SECONDS (9.7-12.2) 11/24/15 14:10 INR 1.0 11/24/15 14:10 APTT 25 SECONDS (21-34) 11/24/15 14:10 Attending/Attestation - Attestation I have personally seen and examined this patient.: Yes I have fully participated in the care of the patient.: Yes I have reviewed all pertinent clinical information, including history, physical exam and plan: Yes Notes (Text): Patient admitted s/p cardiac arrest, with ensuing anoxic encephalopathy; prolonged hospital course due to inability to place patient; Active issues include: Hypernatremia; relatively stable although serum Na increased mildly to 143; nursing communication placed to reinforce 100 cc free H20 flushes q8h; Hypoalbuminiemia; resolved; serum albumin 3.6; continue prostat; tube feeds increased to 65 cc/hr; CAD s/p WILLIE; continue ASA/plavix; Sacral Ulcer; stage I; improved; minute areas of blanching erythema; continue protective ointment and frequent re-positioning; Urinary retention; resolved; seems to have responded well to bethanechol; continue; periodic bladder scans (every 2-3 days).
[2016-11-18] MEDS: Enoxaparin 40 mg Syringe SC SCH (11:02)
--- NOTE | 2016-11-19 07:21 | CP.PCM.PN ---
<Alex Coyle - Last Filed: 11/19/16 15:49> Subjective - Date & Time of Evaluation Date of Evaluation: 11/19/16 Time of Evaluation: 06:04 - Subjective Subjective: PGY 1 medicine note- 's service Pt seen and examined in no acute distress. Patient's clinical presentation is unchanged. No apparent fever or chills noted per nursing or clinical partners. Patient is minimally responsive to tactile stimuli and nonresponsive to verbal stimuli secondary to anoxic brain injury which occurred over a year ago. Patient is turned Q2H per nursing team to prevent sacral ulcer formation. A ROS could not be obtained at this time due to presentation. Objective - Vital Signs/Intake and Output Vital Signs (last 24 hours): Temp Pulse Resp BP Pulse Ox 97.9 F 87 20 109/72 99 11/19/16 07:14 11/19/16 07:14 11/19/16 07:14 11/19/16 07:14 11/19/16 07:14 Intake and Output: 11/19/16 11/19/16 06:59 18:59 Intake Total 1340 Output Total 700 Balance 640 - Medications Medications: Current Medications Bacitracin (Bacitracin) 1 ea TOP DAILY [facility] Last Admin: 11/16/16 09:35 Dose: 1 ea Bethanechol Chloride (Urecholine) 10 mg PEG TID [facility] Carvedilol (Coreg) 3.125 mg PEG BID [facility] Last Admin: 11/18/16 17:38 Dose: 3.125 mg Enoxaparin Sodium (Lovenox) 40 mg SC DAILY [facility] Last Admin: 11/18/16 11:02 Dose: 40 mg Famotidine (Pepcid) 20 mg PEG BID [facility] Last Admin: 11/18/16 17:39 Dose: 20 mg Finasteride (Proscar) 5 mg PEG DAILY [facility] Last Admin: 11/18/16 11:05 Dose: 5 mg Levetiracetam (Keppra) 500 mg PO BID [facility] Last Admin: 11/18/16 17:39 Dose: 500 mg - Labs Labs: 11/17/16 07:22 11/17/16 07:22 PT 10.6 SECONDS (9.7-12.2) 11/24/15 14:10 INR 1.0 11/24/15 14:10 APTT 25 SECONDS (21-34) 11/24/15 14:10 - Constitutional Appears: No Acute Distress, Chronically Ill - Head Exam Head Exam: ATRAUMATIC - Eye Exam Eye Exam: EOMI - ENT Exam ENT Exam: Mucous Membranes Moist - Neck Exam Neck Exam: absent: Lymphadenopathy Additional comments: trach collar in place c/d/i with minimal secretions - Respiratory Exam Respiratory Exam: NORMAL BREATHING PATTERN - GI/Abdominal Exam GI & Abdominal Exam: Soft, Normal Bowel Sounds Additional comments: PEG tube in place with dressing intact - Exam Additional comments: condom catheter in place - Extremities Exam Extremities Exam: absent: Full ROM Additional comments: extremities warm with boots in place to prevent ulceration of the heels - Neurological Exam Neurological Exam: Altered. absent: Oriented x3 - Psychiatric Exam Psychiatric exam: Flat Affect - Skin Skin Exam: Dry, Intact, Warm Assessment and Plan - Assessment and Plan (Free Text) Assessment: Anoxic encephalopathy No acute changes, continue weekly labs on Mondays Turn Q2 hours- Continue to monitor- no sacral ulcers noted Continue Isosource feeds through PEG @ reduced rate 60cc/hr per Nutrition recommendations Continue trach suctioning as needed Pending alf facility placement Hypoalbuminemia Resolved Prostat 30mL 1x / day Sacral Ulcers Resolved 11/19: Apply ointment daily to sacral area to prevent ulceration 11/18: Stage 1 ulcer- healed. Apply ointment daily to sacral area to prevent ulceration 11/16: c/w wound care management and turn Q2 10/30: No acute changes, healing linear 5 cm fissure, continue to turn patient Q2H. 10/29: Healing linear 5 cm fissure with area of erythema Nursing to use barrier to prevent further progression of abrasion Continue to monitor with skin checks and Q2H turning Urinary Retention 11/19:c/w condom catheter - 2940 ml Intake, 1350 ml Output, continue to monitor to ensure that catheter is properly placed; Bladder scans every 2 days;nursing communication placed 11/18:c/w condom catheter - 1260 ml Intake, 100 ml Output, continue to monitor to ensure that catheter is properly placed; Bladder scans every 2 days; 11/16: c/w condom catheter - 748 ml Intake, 200 ml Output, continue to monitor to ensure that catheter is properly placed 11/13: c/w condom catheter - 960 ml Intake, 401 ml Output, continue to monitor to ensure that catheter is properly placed 11/12: c/w condom catheter - 1560 ml Intake, 800 ml Output, continue to monitor to ensure that catheter is properly placed 577cc urine retained 10/20 Proscar 5mg PO daily Bethanecol 10 mg PO TID monitor I's and O's Hypernatremia 143 on 11/18 Stable Continue free water flushes of 100 cc Q8h Continue to monitor weekly labs Failure to thrive 11/18: Continue feeds Previous note: Continuous Tube feeds at 65cc/hr goal per nutrition recommendations with 100cc of free water flush q8H Measure weight weekly. Continue to monitor Respiratory failure 11/19: trach collar in place - normal resp pattern, minimal clear secretions Trach collar in place, with some secretions, will suction when needed, continue with current management. Previous note Continue Current management of trach collar and secretions- continue to suction as needed CAD (coronary artery disease) s/p cardiac stents on 06/13/15 ASA 81mg via PEG daily Coreg 3.125mg PEG BID Plavix 75mg- Discontinued as it has been over 1 year. Seizures Keppra 500mg PEG BID for seizure prophylaxis Lower extremity edema Lasix via PEG as needed Prophylactic measure Pepcid 20 mg PEG BID Lovenox 40mg SC daily SCDs Continue to monitor medication administrations and clinical presentation <Nathaniel Beth - Last Filed: 11/20/16 08:52> Objective - Vital Signs/Intake and Output Vital Signs (last 24 hours): Temp Pulse Resp BP Pulse Ox 98.6 F 89 20 100/61 98 11/20/16 08:09 11/20/16 08:09 11/20/16 08:09 11/20/16 08:09 11/20/16 08:09 Intake and Output: 11/20/16 11/20/16 06:59 18:59 Intake Total 1640 Output Total 1550 Balance 90 - Medications Medications: Current Medications Bacitracin (Bacitracin) 1 ea TOP DAILY [facility] Last Admin: 11/19/16 10:05 Dose: 1 ea Bethanechol Chloride (Urecholine) 10 mg PEG TID [facility] Last Admin: 11/19/16 17:49 Dose: 10 mg Carvedilol (Coreg) 3.125 mg PEG BID [facility] Last Admin: 11/19/16 17:48 Dose: 3.125 mg Enoxaparin Sodium (Lovenox) 40 mg SC DAILY [facility] Last Admin: 11/19/16 10:05 Dose: 40 mg Famotidine (Pepcid) 20 mg PEG BID [facility] Last Admin: 11/19/16 17:48 Dose: 20 mg Finasteride (Proscar) 5 mg PEG DAILY [facility] Last Admin: 11/19/16 10:05 Dose: 5 mg Levetiracetam (Keppra) 500 mg PO BID [facility] Last Admin: 11/19/16 17:48 Dose: 500 mg - Labs Labs: 11/17/16 07:22 11/17/16 07:22 PT 10.6 SECONDS (9.7-12.2) 11/24/15 14:10 INR 1.0 11/24/15 14:10 APTT 25 SECONDS (21-34) 11/24/15 14:10 Attending/Attestation - Attestation I have personally seen and examined this patient.: Yes I have fully participated in the care of the patient.: Yes I have reviewed all pertinent clinical information, including history, physical exam and plan: Yes Notes (Text): Patient admitted s/p cardiac arrest, with ensuing anoxic encephalopathy; prolonged hospital course due to inability to place patient; Active issues include: Hypernatremia; relatively stable although serum Na increased mildly to 143; nursing communication placed to reinforce 100 cc free H20 flushes q8h; Hypoalbuminiemia; resolved; serum albumin 3.6; continue prostat; tube feeds increased to 65 cc/hr this week; CAD s/p WILLIE; continue ASA/plavix; Sacral Ulcer; stage I; improved; minute areas of blanching erythema; continue protective ointment and frequent re-positioning; Urinary retention; resolved; seems to have responded well to bethanechol; continue; periodic bladder scans (~160 cc seen today, unclear how long after patient voided; should re-check tomorrow).
[2016-11-19] MEDS: Enoxaparin 40 mg Syringe SC SCH (10:05)
[2016-11-19] MEDS: Bacitracin 500 Units/gm Oint Foilpak UD TOP SCH (10:05)
[2016-11-20] MEDS: Enoxaparin 40 mg Syringe SC SCH (11:26)
[2016-11-20] MEDS: Bacitracin 500 Units/gm Oint Foilpak UD TOP SCH (11:27)
--- NOTE | 2016-11-20 21:03 | CP.PCM.PN ---
<Alex Coyle - Last Filed: 11/20/16 21:07> Subjective - Date & Time of Evaluation Date of Evaluation: 11/20/16 Time of Evaluation: 10:26 - Subjective Subjective: PGY 1 medicine note- 's service Pt seen and examined in no acute distress. Patient's clinical presentation is unchanged. No apparent fever or chills noted per nursing team. Patient is minimally responsive to tactile stimuli and nonresponsive to verbal stimuli due to anoxic brain injury which occurred over a year ago. Patient is turned every two hours per nursing team to prevent sacral ulcer formation. A ROS could not be obtained at this time due to patient's clinical presentation. Objective - Vital Signs/Intake and Output Vital Signs (last 24 hours): Temp Pulse Resp BP Pulse Ox 97.9 F 69 20 112/70 100 11/20/16 17:17 11/20/16 17:17 11/20/16 17:17 11/20/16 17:17 11/20/16 17:17 Intake and Output: 11/20/16 11/21/16 18:59 06:59 Intake Total 900 Balance 900 - Medications Medications: Current Medications Bacitracin (Bacitracin) 1 ea TOP DAILY [facility] Last Admin: 11/20/16 11:27 Dose: 1 ea Bethanechol Chloride (Urecholine) 10 mg PEG TID [facility] Last Admin: 11/20/16 17:29 Dose: 10 mg Carvedilol (Coreg) 3.125 mg PEG BID [facility] Last Admin: 11/20/16 17:28 Dose: 3.125 mg Enoxaparin Sodium (Lovenox) 40 mg SC DAILY [facility] Last Admin: 11/20/16 11:26 Dose: 40 mg Famotidine (Pepcid) 20 mg PEG BID [facility] Last Admin: 11/20/16 17:28 Dose: 20 mg Finasteride (Proscar) 5 mg PEG DAILY [facility] Last Admin: 11/20/16 11:27 Dose: 5 mg Levetiracetam (Keppra) 500 mg PO BID [facility] Last Admin: 11/20/16 17:28 Dose: 500 mg - Labs Labs: 11/17/16 07:22 11/17/16 07:22 PT 10.6 SECONDS (9.7-12.2) 11/24/15 14:10 INR 1.0 11/24/15 14:10 APTT 25 SECONDS (21-34) 11/24/15 14:10 - Constitutional Appears: No Acute Distress, Chronically Ill - Head Exam Head Exam: ATRAUMATIC - Eye Exam Eye Exam: EOMI - ENT Exam ENT Exam: Mucous Membranes Moist - Neck Exam Neck Exam: absent: Lymphadenopathy Additional comments: trach collar in place c/d/i with minimal secretions - Respiratory Exam Respiratory Exam: NORMAL BREATHING PATTERN. absent: Wheezes - Cardiovascular Exam Cardiovascular Exam: +S1, +S2 - GI/Abdominal Exam GI & Abdominal Exam: Soft, Normal Bowel Sounds Additional comments: PEG tube noted with dressing c/d/i - Exam Additional comments: condom catheter in place - Extremities Exam Extremities Exam: absent: Full ROM Additional comments: warm extremities b/l; with boots in place to prevent ulceration of the heels - Back Exam Back Exam: absent: Full ROM - Neurological Exam Neurological Exam: Altered. absent: Awake - Psychiatric Exam Psychiatric exam: Flat Affect - Skin Skin Exam: Dry, Intact, Warm Additional comments: healed sacral base Assessment and Plan - Assessment and Plan (Free Text) Assessment: Anoxic encephalopathy No acute changes, continue weekly labs on Mondays Turn Q2 hours- Continue to monitor- no sacral ulcers noted Continue Isosource feeds through PEG @ reduced rate 60cc/hr per Nutrition recommendations Continue trach suctioning as needed Pending snf facility placement Hypoalbuminemia Resolved Prostat 30mL 1x / day Sacral Ulcers Resolved 11/20: Apply ointment daily to sacral area to prevent ulceration 11/18: Stage 1 ulcer- healed. Apply ointment daily to sacral area to prevent ulceration 11/16: c/w wound care management and turn Q2 10/30: No acute changes, healing linear 5 cm fissure, continue to turn patient Q2H. 10/29: Healing linear 5 cm fissure with area of erythema Nursing to use barrier to prevent further progression of abrasion Continue to monitor with skin checks and Q2H turning Urinary Retention 11/20:c/w condom catheter - 1640 ml Intake, 1550 ml Output, continue to monitor to ensure that catheter is properly placed; Bladder scans every 2 days;nursing communication placed. Postvoid residual to be monitored. 11/19:c/w condom catheter - 2940 ml Intake, 1350 ml Output, continue to monitor to ensure that catheter is properly placed; Bladder scans every 2 days;nursing communication placed 11/18:c/w condom catheter - 1260 ml Intake, 100 ml Output, continue to monitor to ensure that catheter is properly placed; Bladder scans every 2 days; 11/16: c/w condom catheter - 748 ml Intake, 200 ml Output, continue to monitor to ensure that catheter is properly placed 11/13: c/w condom catheter - 960 ml Intake, 401 ml Output, continue to monitor to ensure that catheter is properly placed 11/12: c/w condom catheter - 1560 ml Intake, 800 ml Output, continue to monitor to ensure that catheter is properly placed 577cc urine retained 10/20 Proscar 5mg PO daily Bethanecol 10 mg PO TID monitor I's and O's Hypernatremia 143 on 11/18 Stable Continue free water flushes of 100 cc Q8h Continue to monitor weekly labs Failure to thrive 11/20: Continue feeds Previous note: Continuous Tube feeds at 65cc/hr goal per nutrition recommendations with 100cc of free water flush q8H Measure weight weekly. Continue to monitor Respiratory failure 11/20: trach collar in place - normal resp pattern, minimal clear secretions Trach collar in place, with some secretions, will suction when needed, continue with current management. Previous note Continue Current management of trach collar and secretions- continue to suction as needed CAD (coronary artery disease) s/p cardiac stents on 06/13/15 ASA 81mg via PEG daily Coreg 3.125mg PEG BID Plavix 75mg- Discontinued as it has been over 1 year. Seizures Keppra 500mg PEG BID for seizure prophylaxis Lower extremity edema Lasix via PEG as needed Prophylactic measure Pepcid 20 mg PEG BID Lovenox 40mg SC daily [facility] Continue to monitor medication administrations and clinical presentation <Nathaniel Beth - Last Filed: 12/26/16 09:54> Objective - Vital Signs/Intake and Output Vital Signs (last 24 hours): Temp Pulse Resp BP Pulse Ox 98.5 F 78 20 110/76 98 12/26/16 07:58 12/26/16 07:58 12/26/16 07:58 12/26/16 07:58 12/26/16 07:58 Intake and Output: 12/26/16 12/26/16 06:59 18:59 Intake Total 780 680 Output Total 750 650 Balance 30 30 - Medications Medications: Current Medications Aspirin (Aspirin Chewable) 81 mg PEG DAILY [facility] Last Admin: 12/25/16 11:00 Dose: 81 mg Bethanechol Chloride (Urecholine) 20 mg PEG TID [facility] Last Admin: 12/25/16 18:52 Dose: 20 mg Carvedilol (Coreg) 3.125 mg PEG BID [facility] Last Admin: 12/25/16 18:52 Dose: 3.125 mg Clopidogrel Bisulfate (Plavix) 75 mg PO DAILY [facility] Last Admin: 12/25/16 11:01 Dose: 75 mg Enoxaparin Sodium (Lovenox) 40 mg SC DAILY [facility] Last Admin: 12/25/16 11:01 Dose: 40 mg Famotidine (Pepcid) 20 mg PEG BID [facility] Last Admin: 12/25/16 18:52 Dose: 20 mg Finasteride (Proscar) 5 mg PEG DAILY [facility] Last Admin: 12/25/16 11:01 Dose: 5 mg Levetiracetam (Keppra) 500 mg PEG BID [facility] Last Admin: 12/25/16 18:53 Dose: 500 mg Tamsulosin HCl (Flomax) 0.8 mg PEG DAILY [facility] Last Admin: 12/25/16 11:00 Dose: 0.8 mg - Labs Labs: 12/21/16 07:39 12/21/16 07:39 PT 10.6 SECONDS (9.7-12.2) 11/24/15 14:10 INR 1.0 11/24/15 14:10 APTT 25 SECONDS (21-34) 11/24/15 14:10 Attending/Attestation - Attestation I have personally seen and examined this patient.: Yes I have fully participated in the care of the patient.: Yes I have reviewed all pertinent clinical information, including history, physical exam and plan: Yes Notes (Text): Patient with anoxic enephalopathy; active issues are hypernatremia, intermittent urinary retention (and associated UTI) and sacral decubitus ulcer ( stage I-II); -Continue free water flushes -Intermittent bladder scan -frequent re-positioning, protective ointment
[2016-11-21] MEDS: Bacitracin 500 Units/gm Oint Foilpak UD TOP SCH (10:28)
[2016-11-21] MEDS: Enoxaparin 40 mg Syringe SC SCH (10:28)
--- NOTE | 2016-11-21 18:05 | CP.PCM.PN ---
<JonnaCarolannkevin - Last Filed: 11/21/16 21:04> Subjective - Date & Time of Evaluation Date of Evaluation: 11/21/16 Time of Evaluation: 06:14 - Subjective Subjective: PGY 1 medicine note- 's service Pt seen and examined in no acute distress. Patient's clinical presentation is unchanged. A ROS could not be obtained at this time due to patient's clinical presentation. Objective - Vital Signs/Intake and Output Vital Signs (last 24 hours): Temp Pulse Resp BP Pulse Ox 98.2 F 82 20 111/79 100 11/21/16 07:08 11/21/16 07:08 11/21/16 07:08 11/21/16 07:08 11/21/16 07:08 Intake and Output: 11/21/16 11/21/16 06:59 18:59 Intake Total 1640 705 Output Total 450 400 Balance 1190 305 - Medications Medications: Current Medications Bacitracin (Bacitracin) 1 ea TOP DAILY [facility] Last Admin: 11/21/16 10:28 Dose: 1 ea Bethanechol Chloride (Urecholine) 10 mg PEG TID [facility] Last Admin: 11/21/16 10:29 Dose: 10 mg Carvedilol (Coreg) 3.125 mg PEG BID [facility] Last Admin: 11/21/16 10:27 Dose: Not Given Enoxaparin Sodium (Lovenox) 40 mg SC DAILY [facility] Last Admin: 11/21/16 10:28 Dose: 40 mg Famotidine (Pepcid) 20 mg PEG BID [facility] Last Admin: 11/21/16 10:29 Dose: 20 mg Finasteride (Proscar) 5 mg PEG DAILY [facility] Last Admin: 11/21/16 10:28 Dose: 5 mg Levetiracetam (Keppra) 500 mg PO BID [facility] Last Admin: 11/21/16 10:28 Dose: 500 mg - Labs Labs: 11/17/16 07:22 11/17/16 07:22 PT 10.6 SECONDS (9.7-12.2) 11/24/15 14:10 INR 1.0 11/24/15 14:10 APTT 25 SECONDS (21-34) 11/24/15 14:10 - Constitutional Appears: No Acute Distress, Chronically Ill - Head Exam Head Exam: ATRAUMATIC - Eye Exam Eye Exam: EOMI - ENT Exam ENT Exam: Mucous Membranes Moist - Neck Exam Neck Exam: absent: Lymphadenopathy Additional comments: trach collar in place c/d/i with minimal secretions - Respiratory Exam Respiratory Exam: NORMAL BREATHING PATTERN. absent: Wheezes - Cardiovascular Exam Cardiovascular Exam: +S1, +S2 - GI/Abdominal Exam GI & Abdominal Exam: Soft, Normal Bowel Sounds Additional comments: PEG tube noted with dressing c/d/i - Rectal Exam Additional comments: condom catheter securely in place - Extremities Exam Extremities Exam: absent: Full ROM Additional comments: warm extremities b/l; soft boots in place to prevent ulceration of the heels - Back Exam Back Exam: absent: Full ROM - Neurological Exam Neurological Exam: Altered - Psychiatric Exam Psychiatric exam: Flat Affect - Skin Skin Exam: Dry, Normal Color, Warm Assessment and Plan - Assessment and Plan (Free Text) Assessment: Anoxic encephalopathy No acute changes, continue weekly labs on Mondays Turn Q2 hours- Continue to monitor- no sacral ulcers noted Continue Isosource feeds through PEG @ reduced rate 60cc/hr per Nutrition recommendations Continue trach suctioning as needed Pending intermodal customer service facility placement Hypoalbuminemia Resolved Prostat 30mL 1x / day Sacral Ulcers Resolved 11/21: Apply ointment daily to sacral area to prevent ulceration 11/18: Stage 1 ulcer- healed. Apply ointment daily to sacral area to prevent ulceration 11/16: c/w wound care management and turn Q2 10/30: No acute changes, healing linear 5 cm fissure, continue to turn patient Q2H. 10/29: Healing linear 5 cm fissure with area of erythema Nursing to use barrier to prevent further progression of abrasion Continue to monitor with skin checks and Q2H turning Urinary Retention 11/21:c/w condom catheter - 2540 ml Intake, 450 ml Output, continue to monitor to ensure that catheter is properly placed; Bladder scans every 2 days;nursing communication placed. Postvoid residual to be monitored in light of prior hx of retention 11/19:c/w condom catheter - 2940 ml Intake, 1350 ml Output, continue to monitor to ensure that catheter is properly placed; Bladder scans every 2 days;nursing communication placed 11/18:c/w condom catheter - 1260 ml Intake, 100 ml Output, continue to monitor to ensure that catheter is properly placed; Bladder scans every 2 days; 11/16: c/w condom catheter - 748 ml Intake, 200 ml Output, continue to monitor to ensure that catheter is properly placed 11/13: c/w condom catheter - 960 ml Intake, 401 ml Output, continue to monitor to ensure that catheter is properly placed 11/12: c/w condom catheter - 1560 ml Intake, 800 ml Output, continue to monitor to ensure that catheter is properly placed 577cc urine retained 10/20 Proscar 5mg PO daily Bethanecol 10 mg PO TID monitor I's and O's Hypernatremia 143 on 11/18 Stable Continue free water flushes of 100 cc Q8h Continue to monitor weekly labs Failure to thrive 11/21: Continue feeds Previous note: Continuous Tube feeds at 65cc/hr goal per nutrition recommendations with 100cc of free water flush q8H Measure weight weekly. Continue to monitor Respiratory failure 11/21: trach collar in place - normal resp pattern, some clear secretions Trach collar in place, with some secretions, will suction when needed, continue with current management. Previous note Continue Current management of trach collar and secretions- continue to suction as needed CAD (coronary artery disease) s/p cardiac stents on 06/13/15 ASA 81mg via PEG daily Coreg 3.125mg PEG BID Plavix 75mg- Discontinued as it has been over 1 year. Seizures Keppra 500mg PEG BID for seizure prophylaxis Lower extremity edema Lasix via PEG as needed Prophylactic measure Pepcid 20 mg PEG BID Lovenox 40mg SC daily SCDs Continue to monitor medication administrations and clinical presentation <Nathaniel Beth - Last Filed: 12/26/16 10:15> Objective - Vital Signs/Intake and Output Vital Signs (last 24 hours): Temp Pulse Resp BP Pulse Ox 98.5 F 78 20 110/76 98 12/26/16 07:58 12/26/16 07:58 12/26/16 07:58 12/26/16 07:58 12/26/16 07:58 Intake and Output: 12/26/16 12/26/16 06:59 18:59 Intake Total 780 680 Output Total 750 650 Balance 30 30 - Medications Medications: Current Medications Aspirin (Aspirin Chewable) 81 mg PEG DAILY [facility] Last Admin: 12/25/16 11:00 Dose: 81 mg Bethanechol Chloride (Urecholine) 20 mg PEG TID [facility] Last Admin: 12/25/16 18:52 Dose: 20 mg Carvedilol (Coreg) 3.125 mg PEG BID [facility] Last Admin: 12/25/16 18:52 Dose: 3.125 mg Clopidogrel Bisulfate (Plavix) 75 mg PO DAILY [facility] Last Admin: 12/25/16 11:01 Dose: 75 mg Enoxaparin Sodium (Lovenox) 40 mg SC DAILY [facility] Last Admin: 12/25/16 11:01 Dose: 40 mg Famotidine (Pepcid) 20 mg PEG BID [facility] Last Admin: 12/25/16 18:52 Dose: 20 mg Finasteride (Proscar) 5 mg PEG DAILY [facility] Last Admin: 12/25/16 11:01 Dose: 5 mg Levetiracetam (Keppra) 500 mg PEG BID [facility] Last Admin: 12/25/16 18:53 Dose: 500 mg Tamsulosin HCl (Flomax) 0.8 mg PEG DAILY [facility] Last Admin: 12/25/16 11:00 Dose: 0.8 mg - Labs Labs: 12/21/16 07:39 12/21/16 07:39 PT 10.6 SECONDS (9.7-12.2) 11/24/15 14:10 INR 1.0 11/24/15 14:10 APTT 25 SECONDS (21-34) 11/24/15 14:10 Attending/Attestation - Attestation I have personally seen and examined this patient.: Yes I have fully participated in the care of the patient.: Yes I have reviewed all pertinent clinical information, including history, physical exam and plan: Yes Notes (Text): Patient with anoxic enephalopathy; active issues are hypernatremia, intermittent urinary retention (and associated UTI) and sacral decubitus ulcer ( stage I-II); -Continue free water flushes -Intermittent bladder scan -frequent re-positioning, protective ointment
--- NOTE | 2016-11-22 06:21 | CP.PCM.PN ---
<EnmanuelSaurabh hernandez - Last Filed: 11/22/16 06:18> Subjective - Date & Time of Evaluation Date of Evaluation: 11/22/16 Time of Evaluation: 12:45 - Subjective Subjective: PGY 1 medicine note- 's service Pt seen and examined at bedside. Pt found lying comfortably in bed in no apparent distress. Patient's clinical presentation is unchanged. A ROS could not be obtained at this time due to patient's clinical presentation. Objective - Vital Signs/Intake and Output Vital Signs (last 24 hours): Temp Pulse Resp BP Pulse Ox 97.8 F 84 20 125/86 100 11/22/16 00:00 11/22/16 00:00 11/22/16 00:00 11/22/16 00:00 11/22/16 00:00 Intake and Output: 11/21/16 11/22/16 18:59 06:59 Intake Total 705 820 Output Total 400 350 Balance 305 470 - Medications Medications: Current Medications Bacitracin (Bacitracin) 1 ea TOP DAILY [facility] Last Admin: 11/21/16 10:28 Dose: 1 ea Bethanechol Chloride (Urecholine) 10 mg PEG TID [facility] Last Admin: 11/21/16 18:05 Dose: 10 mg Carvedilol (Coreg) 3.125 mg PEG BID [facility] Last Admin: 11/21/16 18:06 Dose: 3.125 mg Enoxaparin Sodium (Lovenox) 40 mg SC DAILY [facility] Last Admin: 11/21/16 10:28 Dose: 40 mg Famotidine (Pepcid) 20 mg PEG BID [facility] Last Admin: 11/21/16 18:05 Dose: 20 mg Finasteride (Proscar) 5 mg PEG DAILY [facility] Last Admin: 11/21/16 10:28 Dose: 5 mg Levetiracetam (Keppra) 500 mg PO BID [facility] Last Admin: 11/21/16 18:06 Dose: 500 mg - Labs Labs: 11/17/16 07:22 11/17/16 07:22 PT 10.6 SECONDS (9.7-12.2) 11/24/15 14:10 INR 1.0 11/24/15 14:10 APTT 25 SECONDS (21-34) 11/24/15 14:10 - Constitutional Appears: No Acute Distress, Chronically Ill - Head Exam Head Exam: ATRAUMATIC - Eye Exam Eye Exam: Normal appearance - ENT Exam ENT Exam: Mucous Membranes Moist - Neck Exam Additional comments: trach collar in place c/d/i with minimal secretions - Respiratory Exam Respiratory Exam: NORMAL BREATHING PATTERN. absent: Wheezes - Cardiovascular Exam Cardiovascular Exam: REGULAR RHYTHM, +S1, +S2 - GI/Abdominal Exam GI & Abdominal Exam: Soft, Normal Bowel Sounds. absent: Tenderness Additional comments: PEG tube noted with dressing c/d/i - Exam Additional comments: condom catheter securely in place - Extremities Exam Additional comments: heel ulcer boots in place for protection - Neurological Exam Neurological Exam: Alert, Altered - Skin Skin Exam: Dry, Normal Color, Warm Assessment and Plan - Assessment and Plan (Free Text) Assessment: Anoxic encephalopathy No acute changes, continue weekly labs on Mondays Turn Q2 hours- Continue to monitor- no sacral ulcers noted Continue Isosource feeds through PEG @ reduced rate 60cc/hr per Nutrition recommendations Continue trach suctioning as needed 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 Apply ointment daily to sacral area to prevent ulceration 11/16: c/w wound care management and turn Q2 10/30: No acute changes, healing linear 5 cm fissure, continue to turn patient Q2H. 10/29: Healing linear 5 cm fissure with area of erythema Nursing to use barrier to prevent further progression of abrasion Continue to monitor with skin checks and Q2H turning Urinary Retention 11/21:c/w condom catheter - 2540 ml Intake, 450 ml Output, continue to monitor to ensure that catheter is properly placed; Bladder scans every 2 days;nursing communication placed. Postvoid residual to be monitored in light of prior hx of retention 11/19:c/w condom catheter - 2940 ml Intake, 1350 ml Output, continue to monitor to ensure that catheter is properly placed; Bladder scans every 2 days;nursing communication placed 11/18:c/w condom catheter - 1260 ml Intake, 100 ml Output, continue to monitor to ensure that catheter is properly placed; Bladder scans every 2 days; 11/16: c/w condom catheter - 748 ml Intake, 200 ml Output, continue to monitor to ensure that catheter is properly placed 11/13: c/w condom catheter - 960 ml Intake, 401 ml Output, continue to monitor to ensure that catheter is properly placed 11/12: c/w condom catheter - 1560 ml Intake, 800 ml Output, continue to monitor to ensure that catheter is properly placed 577cc urine retained 10/20 Proscar 5mg PO daily Bethanecol 10 mg PO TID monitor I's and O's Hypernatremia 143 on 11/18 Stable Continue free water flushes of 100 cc Q8h Continue to monitor weekly labs Failure to thrive 11/21: Continue feeds Previous note: Continuous Tube feeds at 65cc/hr goal per nutrition recommendations with 100cc of free water flush q8H Measure weight weekly. Continue to monitor Respiratory failure 11/21: trach collar in place - normal resp pattern, some clear secretions Trach collar in place, with some secretions, will suction when needed, continue with current management. Previous note Continue Current management of trach collar and secretions- continue to suction as needed CAD (coronary artery disease) s/p cardiac stents on 06/13/15 ASA 81mg via PEG daily Coreg 3.125mg PEG BID Plavix 75mg- Discontinued as it has been over 1 year. Seizures Keppra 500mg PEG BID for seizure prophylaxis Lower extremity edema Lasix via PEG as needed Prophylactic measure Pepcid 20 mg PEG BID Lovenox 40mg SC daily SCDs Continue to monitor medication administrations and clinical presentation <Nathaniel Beth - Last Filed: 12/26/16 10:55> Objective - Vital Signs/Intake and Output Vital Signs (last 24 hours): Temp Pulse Resp BP Pulse Ox 98.5 F 78 20 110/76 98 12/26/16 07:58 12/26/16 07:58 12/26/16 07:58 12/26/16 07:58 12/26/16 07:58 Intake and Output: 12/26/16 12/26/16 06:59 18:59 Intake Total 780 680 Output Total 750 650 Balance 30 30 - Medications Medications: Current Medications Aspirin (Aspirin Chewable) 81 mg PEG DAILY [facility] Last Admin: 12/25/16 11:00 Dose: 81 mg Bethanechol Chloride (Urecholine) 20 mg PEG TID [facility] Last Admin: 12/25/16 18:52 Dose: 20 mg Carvedilol (Coreg) 3.125 mg PEG BID [facility] Last Admin: 12/25/16 18:52 Dose: 3.125 mg Clopidogrel Bisulfate (Plavix) 75 mg PO DAILY [facility] Last Admin: 12/25/16 11:01 Dose: 75 mg Enoxaparin Sodium (Lovenox) 40 mg SC DAILY [facility] Last Admin: 12/25/16 11:01 Dose: 40 mg Famotidine (Pepcid) 20 mg PEG BID [facility] Last Admin: 12/25/16 18:52 Dose: 20 mg Finasteride (Proscar) 5 mg PEG DAILY [facility] Last Admin: 12/25/16 11:01 Dose: 5 mg Levetiracetam (Keppra) 500 mg PEG BID [facility] Last Admin: 12/25/16 18:53 Dose: 500 mg Tamsulosin HCl (Flomax) 0.8 mg PEG DAILY [facility] Last Admin: 12/25/16 11:00 Dose: 0.8 mg - Labs Labs: 12/21/16 07:39 12/21/16 07:39 PT 10.6 SECONDS (9.7-12.2) 11/24/15 14:10 INR 1.0 11/24/15 14:10 APTT 25 SECONDS (21-34) 11/24/15 14:10 Attending/Attestation - Attestation I have personally seen and examined this patient.: Yes I have fully participated in the care of the patient.: Yes I have reviewed all pertinent clinical information, including history, physical exam and plan: Yes Notes (Text): Patient with anoxic enephalopathy; active issues are hypernatremia, intermittent urinary retention (and associated UTI) and sacral decubitus ulcer ( stage I); -Continue free water flushes -Intermittent bladder scan -frequent re-positioning, protective ointment
[2016-11-22] MEDS: Bacitracin 500 Units/gm Oint Foilpak UD TOP SCH (10:45)
[2016-11-22] MEDS: Enoxaparin 40 mg Syringe SC SCH (10:45)
--- NOTE | 2016-11-23 04:51 | CP.PCM.PN ---
<Saurabh Carmichael - Last Filed: 11/23/16 04:48> Subjective - Date & Time of Evaluation Date of Evaluation: 11/23/16 Time of Evaluation: 04:00 - Subjective Subjective: PGY 1 medicine note- 's service Pt seen and examined at bedside. Nursing reports no acute events overnight. Pt found lying comfortably in bed in no apparent distress. Patient's clinical presentation is unchanged. A ROS could not be obtained at this time due to patient's clinical presentation. Objective - Vital Signs/Intake and Output Vital Signs (last 24 hours): Temp Pulse Resp BP Pulse Ox 98.5 F 87 20 119/72 99 11/22/16 23:42 11/22/16 23:42 11/22/16 23:42 11/22/16 23:42 11/22/16 23:42 Intake and Output: 11/22/16 11/23/16 18:59 06:59 Intake Total 1590 820 Output Total 1450 Balance 140 820 - Medications Medications: Current Medications Bacitracin (Bacitracin) 1 ea TOP DAILY [facility] Last Admin: 11/22/16 10:45 Dose: 1 ea Bethanechol Chloride (Urecholine) 10 mg PEG TID [facility] Last Admin: 11/22/16 17:53 Dose: 10 mg Carvedilol (Coreg) 3.125 mg PEG BID [facility] Last Admin: 11/22/16 17:53 Dose: 3.125 mg Enoxaparin Sodium (Lovenox) 40 mg SC DAILY [facility] Last Admin: 11/22/16 10:45 Dose: 40 mg Famotidine (Pepcid) 20 mg PEG BID [facility] Last Admin: 11/22/16 17:53 Dose: 20 mg Finasteride (Proscar) 5 mg PEG DAILY [facility] Last Admin: 11/22/16 10:45 Dose: 5 mg Levetiracetam (Keppra) 500 mg PO BID [facility] Last Admin: 11/22/16 17:53 Dose: 500 mg - Labs Labs: 11/17/16 07:22 11/17/16 07:22 PT 10.6 SECONDS (9.7-12.2) 11/24/15 14:10 INR 1.0 11/24/15 14:10 APTT 25 SECONDS (21-34) 11/24/15 14:10 - Constitutional Appears: No Acute Distress, Chronically Ill - Head Exam Head Exam: ATRAUMATIC - Eye Exam Eye Exam: Normal appearance - ENT Exam ENT Exam: Mucous Membranes Moist - Neck Exam Additional comments: trach collar in place c/d/i with minimal secretions - Respiratory Exam Respiratory Exam: Clear to Ausculation Bilateral, NORMAL BREATHING PATTERN. absent: Rales, Rhonchi, Wheezes - Cardiovascular Exam Cardiovascular Exam: REGULAR RHYTHM, +S1, +S2 - GI/Abdominal Exam GI & Abdominal Exam: Soft, Normal Bowel Sounds Additional comments: PEG tube noted with dressing c/d/i - Exam Additional comments: condom catheter securely in place - Extremities Exam Additional comments: heel ulcer boots in place for protection - Back Exam Back Exam: absent: CVA tenderness (L), CVA tenderness (R) - Neurological Exam Neurological Exam: Alert, Awake - Psychiatric Exam Psychiatric exam: Normal Affect, Normal Mood - Skin Skin Exam: Normal Color, Warm Assessment and Plan - Assessment and Plan (Free Text) Assessment: Anoxic encephalopathy No acute changes, continue weekly labs on Mondays Turn Q2 hours- Continue to monitor- no sacral ulcers noted Continue Isosource feeds through PEG @ reduced rate 60cc/hr per Nutrition recommendations Continue trach suctioning as needed 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 Apply ointment daily to sacral area to prevent ulceration 11/16: c/w wound care management and turn Q2 10/30: No acute changes, healing linear 5 cm fissure, continue to turn patient Q2H. 10/29: Healing linear 5 cm fissure with area of erythema Nursing to use barrier to prevent further progression of abrasion Continue to monitor with skin checks and Q2H turning Urinary Retention 11/21:c/w condom catheter - 2540 ml Intake, 450 ml Output, continue to monitor to ensure that catheter is properly placed; Bladder scans every 2 days;nursing communication placed. Postvoid residual to be monitored in light of prior hx of retention 11/19:c/w condom catheter - 2940 ml Intake, 1350 ml Output, continue to monitor to ensure that catheter is properly placed; Bladder scans every 2 days;nursing communication placed 11/18:c/w condom catheter - 1260 ml Intake, 100 ml Output, continue to monitor to ensure that catheter is properly placed; Bladder scans every 2 days; 11/16: c/w condom catheter - 748 ml Intake, 200 ml Output, continue to monitor to ensure that catheter is properly placed 11/13: c/w condom catheter - 960 ml Intake, 401 ml Output, continue to monitor to ensure that catheter is properly placed 11/12: c/w condom catheter - 1560 ml Intake, 800 ml Output, continue to monitor to ensure that catheter is properly placed 577cc urine retained 10/20 Proscar 5mg PO daily Bethanecol 10 mg PO TID monitor I's and O's Hypernatremia 143 on 11/18 Stable Continue free water flushes of 100 cc Q8h Continue to monitor weekly labs Failure to thrive 11/21: Continue feeds Previous note: Continuous Tube feeds at 65cc/hr goal per nutrition recommendations with 100cc of free water flush q8H Measure weight weekly. Continue to monitor Respiratory failure 11/21: trach collar in place - normal resp pattern, some clear secretions Trach collar in place, with some secretions, will suction when needed, continue with current management. Previous note Continue Current management of trach collar and secretions- continue to suction as needed CAD (coronary artery disease) s/p cardiac stents on 06/13/15 ASA 81mg via PEG daily Coreg 3.125mg PEG BID Plavix 75mg- Discontinued as it has been over 1 year. Seizures Keppra 500mg PEG BID for seizure prophylaxis Lower extremity edema Lasix via PEG as needed Prophylactic measure Pepcid 20 mg PEG BID Lovenox 40mg SC daily SCDs Continue to monitor medication administrations and clinical presentation <Nathaniel Beth - Last Filed: 12/29/16 07:59> Objective - Vital Signs/Intake and Output Vital Signs (last 24 hours): Temp Pulse Resp BP Pulse Ox 98.6 F 77 20 121/81 98 12/28/16 23:50 12/28/16 23:50 12/28/16 23:50 12/28/16 23:50 12/28/16 23:50 Intake and Output: 12/29/16 12/29/16 06:59 18:59 Intake Total 1360 Output Total 1701 Balance -341 - Medications Medications: Current Medications Aspirin (Aspirin Chewable) 81 mg PEG DAILY [facility] Last Admin: 12/28/16 10:25 Dose: 81 mg Bethanechol Chloride (Urecholine) 20 mg PEG TID [facility] Last Admin: 12/28/16 18:19 Dose: 20 mg Carvedilol (Coreg) 3.125 mg PEG BID [facility] Last Admin: 12/28/16 18:18 Dose: 3.125 mg Clopidogrel Bisulfate (Plavix) 75 mg PO DAILY [facility] Last Admin: 12/28/16 10:25 Dose: 75 mg Enoxaparin Sodium (Lovenox) 40 mg SC DAILY [facility] Famotidine (Pepcid) 20 mg PEG BID [facility] Last Admin: 12/28/16 18:18 Dose: 20 mg Finasteride (Proscar) 5 mg PEG DAILY [facility] Last Admin: 12/28/16 11:23 Dose: Not Given Levetiracetam (Keppra) 500 mg PEG BID [facility] Tamsulosin HCl (Flomax) 0.8 mg PEG DAILY [facility] Last Admin: 12/28/16 10:25 Dose: 0.8 mg - Labs Labs: 12/21/16 07:39 12/21/16 07:39 PT 10.6 SECONDS (9.7-12.2) 11/24/15 14:10 INR 1.0 11/24/15 14:10 APTT 25 SECONDS (21-34) 11/24/15 14:10 Attending/Attestation - Attestation I have personally seen and examined this patient.: Yes I have fully participated in the care of the patient.: Yes I have reviewed all pertinent clinical information, including history, physical exam and plan: Yes Notes (Text): Patient with anoxic encephalopathy, prolonged hospital course due to inability to find placement; No change in clinical condition; Active issues include intermittent urinary retention, on bethanacol; getting intermittent bladder scans; Hypernatremia; patient on regular free H20 flushes; Stage I-II sacral decubitus ulcer; getting frequent re-positioning and protective ointment.
[2016-11-23] MEDS: Enoxaparin 40 mg Syringe SC SCH (11:09)
[2016-11-23] MEDS: Bacitracin 500 Units/gm Oint Foilpak UD TOP SCH (11:13)
--- NOTE | 2016-11-24 03:31 | CP.PCM.PN ---
<Judith Baires - Last Filed: 11/24/16 03:29> Subjective - Date & Time of Evaluation Date of Evaluation: 11/24/16 Time of Evaluation: 02:35 - Subjective Subjective: PGY 2 medicine note- 's service Pt seen and examined at bedside. Nursing reports no acute events overnight. Pt found lying comfortably in bed in no apparent distress. Patient's clinical presentation is unchanged. A ROS could not be obtained at this time due to patient's clinical presentation. Objective - Vital Signs/Intake and Output Vital Signs (last 24 hours): Temp Pulse Resp BP Pulse Ox 98.4 F 75 20 97/60 L 98 11/24/16 00:20 11/24/16 00:20 11/24/16 00:20 11/24/16 00:20 11/24/16 00:20 Intake and Output: 11/23/16 11/24/16 18:59 06:59 Intake Total 820 Output Total 1400 350 Balance -1400 470 - Medications Medications: Current Medications Bacitracin (Bacitracin) 1 ea TOP DAILY [facility] Last Admin: 11/23/16 11:13 Dose: 1 ea Bethanechol Chloride (Urecholine) 10 mg PEG TID COUNT [facility]CLUD[facility] Last Admin: 11/23/16 17:09 Dose: 10 mg Carvedilol (Coreg) 3.125 mg PEG BID [facility] Last Admin: 11/23/16 17:09 Dose: 3.125 mg Enoxaparin Sodium (Lovenox) 40 mg SC DAILY [facility] Last Admin: 11/23/16 11:09 Dose: 40 mg Famotidine (Pepcid) 20 mg PEG BID [facility] Last Admin: 11/23/16 17:09 Dose: 20 mg Finasteride (Proscar) 5 mg PEG DAILY [facility] Last Admin: 11/23/16 11:09 Dose: 5 mg Levetiracetam (Keppra) 500 mg PO BID [facility] Last Admin: 11/23/16 17:09 Dose: 500 mg - Labs Labs: 11/17/16 07:22 11/17/16 07:22 PT 10.6 SECONDS (9.7-12.2) 11/24/15 14:10 INR 1.0 11/24/15 14:10 APTT 25 SECONDS (21-34) 11/24/15 14:10 - Constitutional Appears: Chronically Ill - Head Exam Head Exam: NORMAL INSPECTION - Eye Exam Eye Exam: Normal appearance - ENT Exam ENT Exam: Mucous Membranes Moist - Respiratory Exam Respiratory Exam: Clear to Ausculation Bilateral, NORMAL BREATHING PATTERN. absent: Rhonchi, Wheezes Additional comments: trach collar in place c/d/i with minimal secretions - Cardiovascular Exam Cardiovascular Exam: REGULAR RHYTHM, +S1, +S2 - GI/Abdominal Exam GI & Abdominal Exam: Soft, Normal Bowel Sounds. absent: Distended, Firm, Tenderness Additional comments: PEG tube noted with dressing c/d/i - Extremities Exam Additional comments: heel ulcer boots in place for protection - Skin Skin Exam: Normal Color, Warm Assessment and Plan - Assessment and Plan (Free Text) Assessment: Anoxic encephalopathy No acute changes, continue weekly labs on Mondays Turn Q2 hours- Continue to monitor- no sacral ulcers noted Continue Isosource feeds through PEG @ reduced rate 60cc/hr per Nutrition recommendations Continue trach suctioning as needed Pending custodial facility placement Hypoalbuminemia Resolved Prostat 30mL 1x / day Sacral Ulcers Resolved 11/21: Apply ointment daily to sacral area to prevent ulceration 11/18: Stage 1 ulcer- healed. Apply ointment daily to sacral area to prevent ulceration 11/16: c/w wound care management and turn Q2 10/30: No acute changes, healing linear 5 cm fissure, continue to turn patient Q2H. 10/29: Healing linear 5 cm fissure with area of erythema Nursing to use barrier to prevent further progression of abrasion Continue to monitor with skin checks and Q2H turning Urinary Retention 11/24: 820 in, 1750 output. 11/21:c/w condom catheter - 2540 ml Intake, 450 ml Output, continue to monitor to ensure that catheter is properly placed; Bladder scans every 2 days;nursing communication placed. Postvoid residual to be monitored in light of prior hx of retention 11/19:c/w condom catheter - 2940 ml Intake, 1350 ml Output, continue to monitor to ensure that catheter is properly placed; Bladder scans every 2 days;nursing communication placed 11/18:c/w condom catheter - 1260 ml Intake, 100 ml Output, continue to monitor to ensure that catheter is properly placed; Bladder scans every 2 days; 11/16: c/w condom catheter - 748 ml Intake, 200 ml Output, continue to monitor to ensure that catheter is properly placed 11/13: c/w condom catheter - 960 ml Intake, 401 ml Output, continue to monitor to ensure that catheter is properly placed 11/12: c/w condom catheter - 1560 ml Intake, 800 ml Output, continue to monitor to ensure that catheter is properly placed 577cc urine retained 10/20 Proscar 5mg PO daily Bethanecol 10 mg PO TID monitor I's and O's Hypernatremia 143 on 11/18 F/U labs in AM Stable Continue free water flushes of 100 cc Q8h Continue to monitor weekly labs Failure to thrive 1/2: Continue feeds Previous note: Continuous Tube feeds at 65cc/hr goal per nutrition recommendations with 100cc of free water flush q8H Measure weight weekly. Continue to monitor Respiratory failure 1/2: trach collar in place - normal resp pattern, some clear secretions Trach collar in place, with some secretions, will suction when needed, continue with current management. Previous note Continue Current management of trach collar and secretions- continue to suction as needed CAD (coronary artery disease) s/p cardiac stents on 06/13/15 ASA 81mg via PEG daily Coreg 3.125mg PEG BID Plavix 75mg- Discontinued as it has been over 1 year. Seizures Keppra 500mg PEG BID for seizure prophylaxis Lower extremity edema Lasix via PEG as needed Prophylactic measure Pepcid 20 mg PEG BID Lovenox 40mg SC daily SCDs Continue to monitor medication administrations and clinical presentation <Donnell Ying - Last Filed: 11/24/16 16:48> Objective - Vital Signs/Intake and Output Vital Signs (last 24 hours): Temp Pulse Resp BP Pulse Ox 98.4 F 72 20 114/71 97 11/24/16 08:49 11/24/16 08:49 11/24/16 08:49 11/24/16 08:49 11/24/16 08:49 Intake and Output: 11/24/16 11/24/16 06:59 18:59 Intake Total 820 1640 Output Total 450 700 Balance 370 940 - Medications Medications: Current Medications Bacitracin (Bacitracin) 1 ea TOP DAILY [facility] Last Admin: 11/24/16 10:56 Dose: 1 ea Bethanechol Chloride (Urecholine) 10 mg PEG TID [facility] Last Admin: 11/24/16 13:34 Dose: 10 mg Carvedilol (Coreg) 3.125 mg PEG BID COUNT [facility] Last Admin: 11/24/16 09:42 Dose: 3.125 mg Enoxaparin Sodium (Lovenox) 40 mg SC DAILY COUNT [facility] Last Admin: 11/24/16 09:42 Dose: 40 mg Famotidine (Pepcid) 20 mg PEG BID COUNT [facility] Last Admin: 11/24/16 09:43 Dose: 20 mg Finasteride (Proscar) 5 mg PEG DAILY [facility] Last Admin: 11/24/16 09:42 Dose: 5 mg Levetiracetam (Keppra) 500 mg PO BID COUNT [facility] Last Admin: 11/24/16 09:42 Dose: 500 mg - Labs Labs: 11/24/16 07:17 11/24/16 07:17 PT 10.6 SECONDS (9.7-12.2) 11/24/15 14:10 INR 1.0 11/24/15 14:10 APTT 25 SECONDS (21-34) 11/24/15 14:10 Attending/Attestation - Attestation I have personally seen and examined this patient.: Yes I have fully participated in the care of the patient.: Yes I have reviewed all pertinent clinical information, including history, physical exam and plan: Yes Notes (Text): 11/24/16 16:46 Patient seen and examined at bedside Abdominal distension noted No BM today as per nursing staff Hold feeding and obtain Abdominal X ray Will start bowel regimen if no obstruction
[2016-11-24 07:30] LABS: BASO % 0.5 % (0.0-2.0); EOS # 0.4 K/uL (0.0-0.7); EOS % 4.7 % (0.0-4.0); HEMOGLOBIN 12.3 g/dL (12.0-18.0); LYMPH # 2.2 K/uL (1.0-4.3); LYMPH % 27.8 % (20.0-40.0); MEAN CELL VOLUME 87.7 fL (80.0-94.0); MEAN CORPUSCULAR HEMOGLOBIN 28.6 pg (27.0-31.0); MEAN CORPUSCULAR HGB CONC 32.6 g/dL (33.0-37.0); MEAN PLATELET VOLUME 9.3 fL (7.2-11.7); MONO # 0.9 K/uL (0.0-0.8); MONO % 11.9 % (0.0-10.0); NEUT # 4.3 K/uL (1.8-7.0); NEUT % 55.1 % (50.0-75.0); NRBC % 0.1 % (0.0-2.0); RBC 4.31 Mil/uL (4.40-5.90); WHITE BLOOD COUNT 7.7 K/uL (4.8-10.8)
[2016-11-24 08:02] LABS: ALBUMIN 3.4 g/dL (3.5-5.0)
[2016-11-24 08:05] LABS: ALB/GLOB RATIO 0.8 (1.0-2.1); AST/SGOT 22 U/L (17-59); BLOOD UREA NITROGEN 20 mg/dL (9-20); GFR NON-AFRICAN AMERICAN > 60
[2016-11-24 08:06] LABS: ALT/SGPT 56 U/L (21-72); CALCIUM 8.2 mg/dl (8.6-10.4)
[2016-11-24] MEDS: Enoxaparin 40 mg Syringe SC SCH (09:42)
[2016-11-24] MEDS: Bacitracin 500 Units/gm Oint Foilpak UD TOP SCH (10:56)
--- NOTE | 2016-11-25 09:46 | RAD ---
HISTORY: Distension COMPARISON: 08/11/2016 FINDINGS: BOWEL: Normal. No obstruction. No free air. BONES: Normal. OTHER FINDINGS: The PEG tube remains in satisfactory position IMPRESSION: No active disease.
--- NOTE | 2016-11-25 10:00 | CP.PCM.PN ---
<Mee Luciano - Last Filed: 11/25/16 14:45> Subjective - Date & Time of Evaluation Date of Evaluation: 11/25/16 Time of Evaluation: 09:56 - Subjective Subjective: Pt seen and examined at bedside. Nursing reports patient's abdomen distended yesterday and pt did not have daily BM. Per nursing patient is also quite dry with thick secretions that are not suctioning well. Pt lying comfortably in bed , no apparent distress. A ROS could not be obtained as patient non verbal. Objective - Vital Signs/Intake and Output Vital Signs (last 24 hours): Temp Pulse Resp BP Pulse Ox 98.0 F 60 20 136/78 100 11/25/16 07:35 11/25/16 07:35 11/25/16 07:35 11/25/16 07:35 11/25/16 07:35 Intake and Output: 11/25/16 11/25/16 06:59 18:59 Output Total 250 Balance -250 - Medications Medications: Current Medications Bacitracin (Bacitracin) 1 ea TOP DAILY [facility] Last Admin: 11/24/16 10:56 Dose: 1 ea Bethanechol Chloride (Urecholine) 10 mg PEG TID [facility] Last Admin: 11/24/16 17:30 Dose: 10 mg Carvedilol (Coreg) 3.125 mg PEG BID [facility] Last Admin: 11/24/16 17:30 Dose: 3.125 mg Enoxaparin Sodium (Lovenox) 40 mg SC DAILY [facility] Last Admin: 11/24/16 09:42 Dose: 40 mg Famotidine (Pepcid) 20 mg PEG BID [facility] Last Admin: 11/24/16 17:29 Dose: 20 mg Finasteride (Proscar) 5 mg PEG DAILY [facility] Last Admin: 11/24/16 09:42 Dose: 5 mg Levetiracetam (Keppra) 500 mg PO BID [facility] Last Admin: 11/24/16 17:29 Dose: 500 mg - Labs Labs: 11/24/16 07:17 11/24/16 07:17 PT 10.6 SECONDS (9.7-12.2) 11/24/15 14:10 INR 1.0 11/24/15 14:10 APTT 25 SECONDS (21-34) 11/24/15 14:10 - Constitutional Appears: No Acute Distress, Chronically Ill - Head Exam Head Exam: ATRAUMATIC, NORMAL INSPECTION, NORMOCEPHALIC - Eye Exam Eye Exam: Normal appearance, PERRL - ENT Exam ENT Exam: Mucous Membranes Moist Additional comments: Trach site intact thin secretions present - Neck Exam Neck Exam: Normal Inspection - Respiratory Exam Respiratory Exam: Clear to Ausculation Bilateral, NORMAL BREATHING PATTERN - Cardiovascular Exam Cardiovascular Exam: +S1, +S2. absent: Murmur - GI/Abdominal Exam GI & Abdominal Exam: Distended, Soft, Normal Bowel Sounds - Exam Additional comments: condom catheter in place - Extremities Exam Extremities Exam: Normal Inspection Additional comments: prevalon boots in place - Neurological Exam Neurological Exam: Alert, Awake - Psychiatric Exam Psychiatric exam: Flat Affect - Skin Skin Exam: Normal Color Assessment and Plan - Assessment and Plan (Free Text) Assessment: Anoxic encephalopathy No acute changes, continue weekly labs on Mondays Turn Q2 hours- Continue to monitor- no sacral ulcers noted Restart Isosource feeds through PEG @ reduced rate 60cc/hr per Nutrition recommendations Continue trach suctioning as needed Pending [place] [facility] facility placement Abdominal Distention Restart Feeds. Goal rate of 60 cc/hr Abdomen X-RAY: Normal. No obstruction. No free air. PEG tube remains in satisfactory position. Lactulose 20 gm PEG once Hypoalbuminemia Resolved Prostat 30mL 1x / day Sacral Ulcers Resolved 11/21: Apply ointment daily to sacral area to prevent ulceration 11/18: Stage 1 ulcer- healed. Apply ointment daily to sacral area to prevent ulceration 11/16: c/w wound care management and turn Q2 10/30: No acute changes, healing linear 5 cm fissure, continue to turn patient Q2H. 10/29: Healing linear 5 cm fissure with area of erythema Nursing to use barrier to prevent further progression of abrasion Continue to monitor with skin checks and Q2H turning Urinary Retention 11/25: 1640 in, 950 output 11/24: 820 in, 1750 output. 11/21:c/w condom catheter - 2540 ml Intake, 450 ml Output, continue to monitor to ensure that catheter is properly placed; Bladder scans every 2 days;nursing communication placed. Postvoid residual to be monitored in light of prior hx of retention 11/19:c/w condom catheter - 2940 ml Intake, 1350 ml Output, continue to monitor to ensure that catheter is properly placed; Bladder scans every 2 days;nursing communication placed 11/18:c/w condom catheter - 1260 ml Intake, 100 ml Output, continue to monitor to ensure that catheter is properly placed; Bladder scans every 2 days; 11/16: c/w condom catheter - 748 ml Intake, 200 ml Output, continue to monitor to ensure that catheter is properly placed 11/13: c/w condom catheter - 960 ml Intake, 401 ml Output, continue to monitor to ensure that catheter is properly placed 11/12: c/w condom catheter - 1560 ml Intake, 800 ml Output, continue to monitor to ensure that catheter is properly placed 577cc urine retained 10/20 Proscar 5mg PO daily Bethanecol 10 mg PO TID monitor I's and O's Hypernatremia F/U on scheduled labs 143 on 11/18 F/U labs in AM Stable Continue free water flushes of 100 cc Q8h Continue to monitor weekly labs Failure to thrive 1/3: Continue feeds Previous note: Continuous Tube feeds at 65cc/hr goal per nutrition recommendations with 100cc of free water flush q8H Measure weight weekly. Continue to monitor Respiratory failure 1/3: trach collar in place - normal resp pattern, thick secretions Trach collar in place, with some secretions, will suction when needed, continue with current management. Previous note Continue Current management of trach collar and secretions- continue to suction as needed CAD (coronary artery disease) s/p cardiac stents on 06/13/15 ASA 81mg via PEG daily Coreg 3.125mg PEG BID Plavix 75mg- Discontinued as it has been over 1 year. Seizures Keppra 500mg PEG BID for seizure prophylaxis Lower extremity edema Lasix via PEG as needed Prophylactic measure Pepcid 20 mg PEG BID Lovenox 40mg SC daily SCDs Continue to monitor medication administrations and clinical presentation <Donnell Ying - Last Filed: 11/25/16 20:33> Objective - Vital Signs/Intake and Output Vital Signs (last 24 hours): Temp Pulse Resp BP Pulse Ox 97.7 F 82 19 85/54 L 100 11/25/16 15:00 11/25/16 15:00 11/25/16 15:00 11/25/16 15:00 11/25/16 15:00 - Medications Medications: Current Medications Aspirin (Aspirin Chewable) 81 mg PEG DAILY [facility] Bacitracin (Bacitracin) 1 ea TOP DAILY [facility] Last Admin: 11/25/16 14:44 Dose: 1 ea Bethanechol Chloride (Urecholine) 10 mg PEG TID [facility] Last Admin: 11/25/16 17:19 Dose: 10 mg Carvedilol (Coreg) 3.125 mg PEG BID [facility] Last Admin: 11/25/16 17:19 Dose: 3.125 mg Enoxaparin Sodium (Lovenox) 40 mg SC DAILY [facility] Last Admin: 11/25/16 10:57 Dose: 40 mg Famotidine (Pepcid) 20 mg PEG BID [facility] Last Admin: 11/25/16 17:20 Dose: 20 mg Finasteride (Proscar) 5 mg PEG DAILY [facility] Last Admin: 11/25/16 10:57 Dose: 5 mg Levetiracetam (Keppra) 500 mg PO BID [facility] Last Admin: 11/25/16 17:19 Dose: 500 mg - Labs Labs: 11/24/16 07:17 11/24/16 07:17 PT 10.6 SECONDS (9.7-12.2) 11/24/15 14:10 INR 1.0 11/24/15 14:10 APTT 25 SECONDS (21-34) 11/24/15 14:10 Attending/Attestation - Attestation I have personally seen and examined this patient.: Yes I have fully participated in the care of the patient.: Yes I have reviewed all pertinent clinical information, including history, physical exam and plan: Yes Notes (Text): 11/25/16 20:33 patient was seen and examined at bedside with the resident No change in clinical condition Abdominal x-ray report reviewed We will restart the feeding
[2016-11-25] MEDS: Enoxaparin 40 mg Syringe SC SCH (10:57)
[2016-11-25] MEDS: Bacitracin 500 Units/gm Oint Foilpak UD TOP SCH (14:44)
--- NOTE | 2016-11-26 07:15 | CP.PCM.PN ---
<AnkitaMee - Last Filed: 11/26/16 15:47> Subjective - Date & Time of Evaluation Date of Evaluation: 11/26/16 Time of Evaluation: 07:13 - Subjective Subjective: Pt examined at bedside. Per nursing, no events overnight. Pt lying comfortably in bed, no apparent distress. A ROS could not be obtained as patient non verbal. Objective - Vital Signs/Intake and Output Vital Signs (last 24 hours): Temp Pulse Resp BP Pulse Ox 97.3 F L 70 20 102/69 100 11/26/16 00:05 11/26/16 00:05 11/26/16 00:05 11/26/16 00:05 11/26/16 00:05 Intake and Output: 11/26/16 11/26/16 06:59 18:59 Intake Total 450 Output Total 1 Balance 449 - Medications Medications: Current Medications Aspirin (Aspirin Chewable) 81 mg PEG DAILY [facility] Bacitracin (Bacitracin) 1 ea TOP DAILY [facility] Last Admin: 11/25/16 14:44 Dose: 1 ea Bethanechol Chloride (Urecholine) 10 mg PEG TID [facility] Last Admin: 11/25/16 17:19 Dose: 10 mg Carvedilol (Coreg) 3.125 mg PEG BID [facility] Last Admin: 11/25/16 17:19 Dose: 3.125 mg Enoxaparin Sodium (Lovenox) 40 mg SC DAILY [facility] Last Admin: 11/25/16 10:57 Dose: 40 mg Famotidine (Pepcid) 20 mg PEG BID [facility] Last Admin: 11/25/16 17:20 Dose: 20 mg Finasteride (Proscar) 5 mg PEG DAILY [facility] Last Admin: 11/25/16 10:57 Dose: 5 mg Levetiracetam (Keppra) 500 mg PO BID [facility] Last Admin: 11/25/16 17:19 Dose: 500 mg - Labs Labs: 11/24/16 07:17 11/24/16 07:17 PT 10.6 SECONDS (9.7-12.2) 11/24/15 14:10 INR 1.0 11/24/15 14:10 APTT 25 SECONDS (21-34) 11/24/15 14:10 - Constitutional Appears: No Acute Distress, Chronically Ill - Head Exam Head Exam: ATRAUMATIC, NORMAL INSPECTION, NORMOCEPHALIC - Eye Exam Eye Exam: Normal appearance, PERRL - ENT Exam ENT Exam: Mucous Membranes Moist Additional comments: thick secretions noted - Respiratory Exam Respiratory Exam: Clear to Ausculation Bilateral, NORMAL BREATHING PATTERN - Cardiovascular Exam Cardiovascular Exam: +S1, +S2. absent: Murmur - GI/Abdominal Exam GI & Abdominal Exam: Distended, Soft, Normal Bowel Sounds Additional comments: mildly distended abdomen. PEG site in place, no surrounding erythema - Extremities Exam Additional comments: Prevalon boots in place - Neurological Exam Neurological Exam: Alert, Awake - Psychiatric Exam Psychiatric exam: Flat Affect - Skin Additional comments: small blisters scattered to thighs Assessment and Plan - Assessment and Plan (Free Text) Assessment: 11/26: Continue current managment Anoxic encephalopathy No acute changes, continue weekly labs on Mondays Turn Q2 hours- Continue to monitor- no sacral ulcers noted Restart Isosource feeds through PEG @ reduced rate 60cc/hr per Nutrition recommendations Continue trach suctioning as needed Pending [facility] facility placement Abdominal Distention Restart Feeds. Goal rate of 60 cc/hr Abdomen X-RAY: Normal. No obstruction. No free air. PEG tube remains in satisfactory position. Lactulose 20 gm PEG once Hypoalbuminemia Resolved Prostat 30mL 1x / day Sacral Ulcers Resolved 11/21: Apply ointment daily to sacral area to prevent ulceration 11/18: Stage 1 ulcer- healed. Apply ointment daily to sacral area to prevent ulceration 11/16: c/w wound care management and turn Q2 10/30: No acute changes, healing linear 5 cm fissure, continue to turn patient Q2H. 10/29: Healing linear 5 cm fissure with area of erythema Nursing to use barrier to prevent further progression of abrasion Continue to monitor with skin checks and Q2H turning Urinary Retention 11/26: condom catheter discontinued as per family's wishes 11/25: 1640 in, 950 output 11/24: 820 in, 1750 output. 11/21:c/w condom catheter - 2540 ml Intake, 450 ml Output, continue to monitor to ensure that catheter is properly placed; Bladder scans every 2 days;nursing communication placed. Postvoid residual to be monitored in light of prior hx of retention 11/19:c/w condom catheter - 2940 ml Intake, 1350 ml Output, continue to monitor to ensure that catheter is properly placed; Bladder scans every 2 days;nursing communication placed 11/18:c/w condom catheter - 1260 ml Intake, 100 ml Output, continue to monitor to ensure that catheter is properly placed; Bladder scans every 2 days; 11/16: c/w condom catheter - 748 ml Intake, 200 ml Output, continue to monitor to ensure that catheter is properly placed 11/13: c/w condom catheter - 960 ml Intake, 401 ml Output, continue to monitor to ensure that catheter is properly placed 11/12: c/w condom catheter - 1560 ml Intake, 800 ml Output, continue to monitor to ensure that catheter is properly placed 577cc urine retained 10/20 Proscar 5mg PO daily Bethanecol 10 mg PO TID monitor I's and O's Hypernatremia F/U on scheduled labs 143 on 11/18 F/U labs in AM Stable Continue free water flushes of 100 cc Q8h Continue to monitor weekly labs Failure to thrive 1/3: Continue feeds. Advance to 30cc Previous note: Continuous Tube feeds at 65cc/hr goal per nutrition recommendations with 100cc of free water flush q8H Measure weight weekly. Continue to monitor Respiratory failure /: trach collar in place - normal resp pattern, thick secretions Trach collar in place, with some secretions, will suction when needed, continue with current management. Previous note Continue Current management of trach collar and secretions- continue to suction as needed CAD (coronary artery disease) s/p cardiac stents on 06/13/15 ASA 81mg via PEG daily Coreg 3.125mg PEG BID Plavix 75mg- Discontinued as it has been over 1 year. Seizures Keppra 500mg PEG BID for seizure prophylaxis Lower extremity edema Lasix via PEG as needed Prophylactic measure Pepcid 20 mg PEG BID Lovenox 40mg SC daily SCDs Continue to monitor medication administrations and clinical presentation <Donnell Ying - Last Filed: 11/26/16 22:12> Objective - Vital Signs/Intake and Output Vital Signs (last 24 hours): Temp Pulse Resp BP Pulse Ox 98.3 F 72 20 106/71 97 11/26/16 08:45 11/26/16 08:45 11/26/16 08:45 11/26/16 08:45 11/26/16 08:45 - Medications Medications: Current Medications Aspirin (Aspirin Chewable) 81 mg PEG DAILY [facility] Last Admin: 11/26/16 10:14 Dose: 81 mg Bacitracin (Bacitracin) 1 ea TOP DAILY [facility] Last Admin: 11/26/16 10:16 Dose: 1 ea Bethanechol Chloride (Urecholine) 10 mg PEG TID [facility] Last Admin: 11/26/16 18:00 Dose: 10 mg Carvedilol (Coreg) 3.125 mg PEG BID [facility] Last Admin: 11/26/16 18:00 Dose: 3.125 mg Enoxaparin Sodium (Lovenox) 40 mg SC DAILY [facility] Last Admin: 11/26/16 10:15 Dose: 40 mg Famotidine (Pepcid) 20 mg PEG BID [facility] Last Admin: 11/26/16 18:00 Dose: 20 mg Finasteride (Proscar) 5 mg PEG DAILY [facility] Last Admin: 11/26/16 10:14 Dose: 5 mg Levetiracetam (Keppra) 500 mg PO BID [facility] Last Admin: 11/26/16 18:00 Dose: 500 mg Tamsulosin HCl (Flomax) 0.8 mg PO DAILY [facility] - Labs Labs: 11/24/16 07:17 11/24/16 07:17 PT 10.6 SECONDS (9.7-12.2) 11/24/15 14:10 INR 1.0 11/24/15 14:10 APTT 25 SECONDS (21-34) 11/24/15 14:10 Attending/Attestation - Attestation I have personally seen and examined this patient.: Yes I have fully participated in the care of the patient.: Yes I have reviewed all pertinent clinical information, including history, physical exam and plan: Yes Notes (Text): 11/26/16 22:11 patient was seen and examined at bedside with the resident There is no change in clinical condition we will continue current management
[2016-11-26] MEDS: Enoxaparin 40 mg Syringe SC SCH (10:15)
[2016-11-26] MEDS: Bacitracin 500 Units/gm Oint Foilpak UD TOP SCH (10:16)
--- NOTE | 2016-11-27 07:10 | CP.PCM.PN ---
<AnkitaMee - Last Filed: 11/27/16 15:35> Subjective - Date & Time of Evaluation Date of Evaluation: 11/27/16 Time of Evaluation: 07:10 - Subjective Subjective: Pt examined at bedside. Per nursing, no events overnight. Nursing notes pt has not had a bowel movement. Abdomen is mildly distended. Pt lying comfortably in bed, no apparent distress. A ROS could not be obtained as patient non verbal. Objective - Vital Signs/Intake and Output Vital Signs (last 24 hours): Temp Pulse Resp BP Pulse Ox 98.3 F 73 20 104/75 99 11/27/16 00:00 11/27/16 00:00 11/27/16 00:00 11/27/16 00:00 11/27/16 00:00 Intake and Output: 11/27/16 11/27/16 06:59 18:59 Intake Total 570 Output Total 0 Balance 570 - Medications Medications: Current Medications Aspirin (Aspirin Chewable) 81 mg PEG DAILY [facility] Last Admin: 11/26/16 10:14 Dose: 81 mg Bacitracin (Bacitracin) 1 ea TOP DAILY [facility] Last Admin: 11/26/16 10:16 Dose: 1 ea Bethanechol Chloride (Urecholine) 10 mg PEG TID [facility] Last Admin: 11/26/16 18:00 Dose: 10 mg Carvedilol (Coreg) 3.125 mg PEG BID [facility] Last Admin: 11/26/16 18:00 Dose: 3.125 mg Enoxaparin Sodium (Lovenox) 40 mg SC DAILY [facility] Last Admin: 11/26/16 10:15 Dose: 40 mg Famotidine (Pepcid) 20 mg PEG BID [facility] Last Admin: 11/26/16 18:00 Dose: 20 mg Finasteride (Proscar) 5 mg PEG DAILY [facility] Last Admin: 11/26/16 10:14 Dose: 5 mg Levetiracetam (Keppra) 500 mg PO BID [facility] Last Admin: 11/26/16 18:00 Dose: 500 mg Tamsulosin HCl (Flomax) 0.8 mg PO DAILY [facility] - Labs Labs: 11/24/16 07:17 11/24/16 07:17 PT 10.6 SECONDS (9.7-12.2) 11/24/15 14:10 INR 1.0 11/24/15 14:10 APTT 25 SECONDS (21-34) 11/24/15 14:10 - Constitutional Appears: No Acute Distress, Chronically Ill - Head Exam Head Exam: ATRAUMATIC, NORMAL INSPECTION, NORMOCEPHALIC - Eye Exam Eye Exam: Normal appearance, PERRL - ENT Exam ENT Exam: Mucous Membranes Moist Additional comments: thick white oral secretions - Neck Exam Additional comments: trach in place - Respiratory Exam Respiratory Exam: Clear to Ausculation Bilateral, NORMAL BREATHING PATTERN - Cardiovascular Exam Cardiovascular Exam: +S1, +S2. absent: Tachycardia, Murmur - GI/Abdominal Exam GI & Abdominal Exam: Distended, Soft, Normal Bowel Sounds - Extremities Exam Extremities Exam: Normal Inspection Additional comments: prevalon boots in place - Neurological Exam Neurological Exam: Awake - Psychiatric Exam Psychiatric exam: Flat Affect - Skin Skin Exam: Normal Color Assessment and Plan - Assessment and Plan (Free Text) Assessment: 11/27: Continue current managment Anoxic encephalopathy No acute changes, continue weekly labs on Mondays Turn Q2 hours- Continue to monitor- no sacral ulcers noted Restart Isosource feeds through PEG @ reduced rate 60cc/hr per Nutrition recommendations Continue trach suctioning as needed Pending half-way facility placement Abdominal Distention Restart Feeds. Goal rate of 60 cc/hr. Currently at 40 cc Start Senna Syrup 5mL PEG daily Start Lactulose PEG HS Abdomen X-RAY: Normal. No obstruction. No free air. PEG tube remains in satisfactory position. Lactulose 20 gm PEG once Hypoalbuminemia Resolved Prostat 30mL 1x / day Sacral Ulcers Resolved 11/21: Apply ointment daily to sacral area to prevent ulceration 11/18: Stage 1 ulcer- healed. Apply ointment daily to sacral area to prevent ulceration 11/16: c/w wound care management and turn Q2 10/30: No acute changes, healing linear 5 cm fissure, continue to turn patient Q2H. 10/29: Healing linear 5 cm fissure with area of erythema Nursing to use barrier to prevent further progression of abrasion Continue to monitor with skin checks and Q2H turning Urinary Retention 11/26: condom catheter discontinued as per family's wishes 11/25: 1640 in, 950 output 11/24: 820 in, 1750 output. 11/21:c/w condom catheter - 2540 ml Intake, 450 ml Output, continue to monitor to ensure that catheter is properly placed; Bladder scans every 2 days;nursing communication placed. Postvoid residual to be monitored in light of prior hx of retention 11/19:c/w condom catheter - 2940 ml Intake, 1350 ml Output, continue to monitor to ensure that catheter is properly placed; Bladder scans every 2 days;nursing communication placed 11/18:c/w condom catheter - 1260 ml Intake, 100 ml Output, continue to monitor to ensure that catheter is properly placed; Bladder scans every 2 days; 11/16: c/w condom catheter - 748 ml Intake, 200 ml Output, continue to monitor to ensure that catheter is properly placed 11/13: c/w condom catheter - 960 ml Intake, 401 ml Output, continue to monitor to ensure that catheter is properly placed 11/12: c/w condom catheter - 1560 ml Intake, 800 ml Output, continue to monitor to ensure that catheter is properly placed 577cc urine retained 10/20 Proscar 5mg PO daily Bethanecol 10 mg PO TID monitor I's and O's Hypernatremia F/U on scheduled labs 143 on 11/18 F/U labs in AM Stable Continue free water flushes of 100 cc Q8h Continue to monitor weekly labs Failure to thrive 1/3: Continue feeds. Advance to 30cc Previous note: Continuous Tube feeds at 65cc/hr goal per nutrition recommendations with 100cc of free water flush q8H Measure weight weekly. Continue to monitor Respiratory failure /: trach collar in place - normal resp pattern, thick secretions Trach collar in place, with some secretions, will suction when needed, continue with current management. Previous note Continue Current management of trach collar and secretions- continue to suction as needed CAD (coronary artery disease) s/p cardiac stents on 06/13/15 ASA 81mg via PEG daily Coreg 3.125mg PEG BID Plavix 75mg- Discontinued as it has been over 1 year. Seizures Keppra 500mg PEG BID for seizure prophylaxis Lower extremity edema Lasix via PEG as needed Prophylactic measure Pepcid 20 mg PEG BID Lovenox 40mg SC daily [facility]CD[facility] Continue to monitor medication administrations and clinical presentation <Donnell Ying - Last Filed: 11/27/16 21:51> Objective - Vital Signs/Intake and Output Vital Signs (last 24 hours): Temp Pulse Resp BP Pulse Ox 98.6 F 70 20 119/82 100 11/27/16 16:00 11/27/16 16:00 11/27/16 16:00 11/27/16 16:00 11/27/16 16:00 Intake and Output: 11/27/16 11/28/16 18:59 06:59 Intake Total 470 Balance 470 - Medications Medications: Current Medications Aspirin (Aspirin Chewable) 81 mg PEG DAILY [facility] Last Admin: 11/27/16 09:48 Dose: 81 mg Bacitracin (Bacitracin) 1 ea TOP DAILY [facility] Last Admin: 11/27/16 09:49 Dose: 1 ea Bethanechol Chloride (Urecholine) 10 mg PEG TID [facility] Last Admin: 11/27/16 18:13 Dose: 10 mg Carvedilol (Coreg) 3.125 mg PEG BID [facility] Last Admin: 11/27/16 18:13 Dose: 3.125 mg Enoxaparin Sodium (Lovenox) 40 mg SC DAILY [facility] Last Admin: 11/27/16 09:49 Dose: 40 mg Famotidine (Pepcid) 20 mg PEG BID [facility] Last Admin: 11/27/16 18:13 Dose: 20 mg Finasteride (Proscar) 5 mg PEG DAILY [facility] Last Admin: 11/27/16 09:48 Dose: 5 mg Lactulose (Enulose) 20 gm PEG HS [facility] Last Admin: 11/27/16 21:45 Dose: 20 gm Levetiracetam (Keppra) 500 mg PO BID [facility] Sennosides (Senokot Tab) 8.6 mg PO DAILY [facility] Last Admin: 11/27/16 18:32 Dose: 8.6 mg Tamsulosin HCl (Flomax) 0.8 mg PO DAILY [facility] Last Admin: 11/27/16 09:48 Dose: 0.8 mg - Labs Labs: 11/24/16 07:17 11/24/16 07:17 PT 10.6 SECONDS (9.7-12.2) 11/24/15 14:10 INR 1.0 11/24/15 14:10 APTT 25 SECONDS (21-34) 11/24/15 14:10 Attending/Attestation - Attestation I have personally seen and examined this patient.: Yes I have fully participated in the care of the patient.: Yes I have reviewed all pertinent clinical information, including history, physical exam and plan: Yes Notes (Text): 11/27/16 21:50 patient was seen and examined at bedside with the resident Plan no change in clinical condition Continue current management Monitor for bowel movements
[2016-11-27] MEDS: Bacitracin 500 Units/gm Oint Foilpak UD TOP SCH (09:49)
[2016-11-27] MEDS: Enoxaparin 40 mg Syringe SC SCH (09:49)
--- NOTE | 2016-11-28 07:08 | CP.PCM.PN ---
<Mee Luciano - Last Filed: 11/28/16 16:57> Subjective - Date & Time of Evaluation Date of Evaluation: 11/28/16 Time of Evaluation: 07:06 - Subjective Subjective: Pt examined at bedside. Per nursing, no events overnight. Nursing notes pt had bowel movements. Abdomen is mildly distended. Pt also appears a little edematous. Pt lying comfortably in bed, no apparent distress. A ROS could not be obtained as patient non verbal. Objective - Vital Signs/Intake and Output Vital Signs (last 24 hours): Temp Pulse Resp BP Pulse Ox 98 F 73 20 123/82 98 11/28/16 00:00 11/28/16 00:00 11/28/16 00:00 11/28/16 00:00 11/28/16 00:00 Intake and Output: 11/28/16 11/28/16 06:59 18:59 Intake Total 365 Balance 365 - Medications Medications: Current Medications Aspirin (Aspirin Chewable) 81 mg PEG DAILY [facility] Last Admin: 11/27/16 09:48 Dose: 81 mg Bacitracin (Bacitracin) 1 ea TOP DAILY [facility] Last Admin: 11/27/16 09:49 Dose: 1 ea Bethanechol Chloride (Urecholine) 10 mg PEG TID [facility] Last Admin: 11/27/16 18:13 Dose: 10 mg Carvedilol (Coreg) 3.125 mg PEG BID [facility] Last Admin: 11/27/16 18:13 Dose: 3.125 mg Enoxaparin Sodium (Lovenox) 40 mg SC DAILY [facility] Last Admin: 11/27/16 09:49 Dose: 40 mg Famotidine (Pepcid) 20 mg PEG BID [facility] Last Admin: 11/27/16 18:13 Dose: 20 mg Finasteride (Proscar) 5 mg PEG DAILY [facility] Last Admin: 11/27/16 09:48 Dose: 5 mg Lactulose (Enulose) 20 gm PEG HS [facility] Last Admin: 11/27/16 21:45 Dose: 20 gm Levetiracetam (Keppra) 500 mg PO BID [facility] Sennosides (Senokot Tab) 8.6 mg PO DAILY [facility] Last Admin: 11/27/16 18:32 Dose: 8.6 mg Tamsulosin HCl (Flomax) 0.8 mg PO DAILY [facility] Last Admin: 11/27/16 09:48 Dose: 0.8 mg - Labs Labs: 11/24/16 07:17 11/24/16 07:17 PT 10.6 SECONDS (9.7-12.2) 11/24/15 14:10 INR 1.0 11/24/15 14:10 APTT 25 SECONDS (21-34) 11/24/15 14:10 - Constitutional Appears: No Acute Distress, Chronically Ill - Head Exam Head Exam: ATRAUMATIC, NORMAL INSPECTION, NORMOCEPHALIC - Eye Exam Eye Exam: Normal appearance, PERRL - ENT Exam ENT Exam: Mucous Membranes Moist - Neck Exam Additional comments: trach in place - Respiratory Exam Respiratory Exam: Clear to Ausculation Bilateral, NORMAL BREATHING PATTERN - Cardiovascular Exam Cardiovascular Exam: +S1, +S2. absent: Murmur - GI/Abdominal Exam GI & Abdominal Exam: Distended, Soft, Normal Bowel Sounds. absent: Tenderness Additional comments: PEG in place - Extremities Exam Extremities Exam: Normal Inspection. absent: Pedal Edema, Tenderness - Neurological Exam Neurological Exam: Alert, Awake - Psychiatric Exam Psychiatric exam: Flat Affect - Skin Skin Exam: Normal Color Assessment and Plan - Assessment and Plan (Free Text) Assessment: 11/28: Continue current managment Lasix 20 mg IV once as pt appears edematous Anoxic encephalopathy No acute changes, continue weekly labs on Mondays Turn Q2 hours- Continue to monitor- no sacral ulcers noted Restart Isosource feeds through PEG @ reduced rate 60cc/hr per Nutrition recommendations Continue trach suctioning as needed Pending correction facility placement Abdominal Distention Restart Feeds. Goal rate of 60 cc/hr. Currently at 55 cc Start Senna Syrup 5mL PEG daily Start Lactulose PEG HS Abdomen X-RAY: Normal. No obstruction. No free air. PEG tube remains in satisfactory position. Lactulose 20 gm PEG once Hypoalbuminemia Resolved Prostat 30mL 1x / day Sacral Ulcers Resolved 11/21: Apply ointment daily to sacral area to prevent ulceration 11/18: Stage 1 ulcer- healed. Apply ointment daily to sacral area to prevent ulceration 11/16: c/w wound care management and turn Q2 10/30: No acute changes, healing linear 5 cm fissure, continue to turn patient Q2H. 10/29: Healing linear 5 cm fissure with area of erythema Nursing to use barrier to prevent further progression of abrasion Continue to monitor with skin checks and Q2H turning Urinary Retention 11/26: condom catheter discontinued as per family's wishes 11/25: 1640 in, 950 output 11/24: 820 in, 1750 output. 11/21:c/w condom catheter - 2540 ml Intake, 450 ml Output, continue to monitor to ensure that catheter is properly placed; Bladder scans every 2 days;nursing communication placed. Postvoid residual to be monitored in light of prior hx of retention 11/19:c/w condom catheter - 2940 ml Intake, 1350 ml Output, continue to monitor to ensure that catheter is properly placed; Bladder scans every 2 days;nursing communication placed 11/18:c/w condom catheter - 1260 ml Intake, 100 ml Output, continue to monitor to ensure that catheter is properly placed; Bladder scans every 2 days; 11/16: c/w condom catheter - 748 ml Intake, 200 ml Output, continue to monitor to ensure that catheter is properly placed 11/13: c/w condom catheter - 960 ml Intake, 401 ml Output, continue to monitor to ensure that catheter is properly placed 11/12: c/w condom catheter - 1560 ml Intake, 800 ml Output, continue to monitor to ensure that catheter is properly placed 577cc urine retained 10/20 Proscar 5mg PO daily Bethanecol 10 mg PO TID monitor I's and O's Hypernatremia F/U on scheduled labs 143 on 11/18 F/U labs in AM Stable Continue free water flushes of 100 cc Q8h Continue to monitor weekly labs Failure to thrive 11/25: Continue feeds. Advance to 30cc Previous note: Continuous Tube feeds at 65cc/hr goal per nutrition recommendations with 100cc of free water flush q8H Measure weight weekly. Continue to monitor Respiratory failure 11/28: trach collar in place - normal resp pattern, thick secretions Trach collar in place, with some secretions, will suction when needed, continue with current management. Previous note Continue Current management of trach collar and secretions- continue to suction as needed CAD (coronary artery disease) s/p cardiac stents on 06/13/15 ASA 81mg via PEG daily Coreg 3.125mg PEG BID Plavix 75mg- Discontinued as it has been over 1 year. Seizures Keppra 500mg PEG BID for seizure prophylaxis Lower extremity edema Lasix via PEG as needed. Administered. Prophylactic measure Pepcid 20 mg PEG BID Lovenox 40mg SC daily [facility]CDs Continue to monitor medication administrations and clinical presentation <StepanSolangeDonnell M - Last Filed: 11/28/16 22:20> Objective - Vital Signs/Intake and Output Vital Signs (last 24 hours): Temp Pulse Resp BP Pulse Ox 98.1 F 74 20 115/84 100 11/28/16 15:00 11/28/16 15:00 11/28/16 15:00 11/28/16 18:23 11/28/16 15:00 Intake and Output: 11/28/16 11/29/16 18:59 06:59 Intake Total 1360 Balance 1360 - Medications Medications: Current Medications Aspirin (Aspirin Chewable) 81 mg PEG DAILY [facility] Last Admin: 11/28/16 10:37 Dose: 81 mg Bethanechol Chloride (Urecholine) 10 mg PEG TID [facility] Last Admin: 11/28/16 18:22 Dose: 10 mg Carvedilol (Coreg) 3.125 mg PEG BID [facility] Last Admin: 11/28/16 18:22 Dose: 3.125 mg Enoxaparin Sodium (Lovenox) 40 mg SC DAILY [facility] Last Admin: 11/28/16 10:37 Dose: 40 mg Famotidine (Pepcid) 20 mg PEG BID [facility] Last Admin: 11/28/16 18:22 Dose: 20 mg Finasteride (Proscar) 5 mg PEG DAILY [facility] Last Admin: 11/28/16 10:36 Dose: 5 mg Lactulose (Enulose) 20 gm PEG HS [facility] Last Admin: 11/28/16 21:22 Dose: 20 gm Levetiracetam (Keppra) 500 mg PEG BID [facility] Last Admin: 11/28/16 18:21 Dose: 500 mg Sennosides (Senokot Tab) 8.6 mg PEG DAILY [facility] Last Admin: 11/28/16 10:36 Dose: 8.6 mg Tamsulosin HCl (Flomax) 0.8 mg PEG DAILY [facility] Last Admin: 11/28/16 10:37 Dose: 0.8 mg - Labs Labs: 11/24/16 07:17 11/24/16 07:17 PT 10.6 SECONDS (9.7-12.2) 11/24/15 14:10 INR 1.0 11/24/15 14:10 APTT 25 SECONDS (21-34) 11/24/15 14:10 Attending/Attestation - Attestation I have personally seen and examined this patient.: Yes I have fully participated in the care of the patient.: Yes I have reviewed all pertinent clinical information, including history, physical exam and plan: Yes Notes (Text): 11/28/16 22:19 patient is seen and examined at bedside No change in clinical condition Continue present management Turn and position every 2 hours to prevent decubitus ulcers
[2016-11-28] MEDS: Enoxaparin 40 mg Syringe SC SCH (10:37)
[2016-11-28] MEDS: levETIRAcetam 100 mg/ml (5ml) Oral Syringe PEG SCH ×2 (10:37→18:21)
[2016-11-28] MEDS: Bacitracin 500 Units/gm Oint Foilpak UD TOP SCH (10:37)
--- NOTE | 2016-11-29 02:35 | CP.PCM.PN ---
<Imani Ramon - Last Filed: 11/29/16 02:32> Subjective - Date & Time of Evaluation Date of Evaluation: 11/29/16 Time of Evaluation: 02:30 - Subjective Subjective: PGY1 Medicine Note for Dr. Ying Patient seen and examined at bedside. No acute events noted. Patient lying in bed in no acute distress. ROS unobtainable. Objective - Vital Signs/Intake and Output Vital Signs (last 24 hours): Temp Pulse Resp BP Pulse Ox 98.6 F 78 20 113/73 100 11/28/16 23:20 11/28/16 23:20 11/28/16 23:20 11/28/16 23:20 11/28/16 23:20 Intake and Output: 11/28/16 11/29/16 18:59 06:59 Intake Total 1360 480 Balance 1360 480 - Medications Medications: Current Medications Aspirin (Aspirin Chewable) 81 mg PEG DAILY [facility] Last Admin: 11/28/16 10:37 Dose: 81 mg Bethanechol Chloride (Urecholine) 10 mg PEG TID [facility] Last Admin: 11/28/16 18:22 Dose: 10 mg Carvedilol (Coreg) 3.125 mg PEG BID [facility] Last Admin: 11/28/16 18:22 Dose: 3.125 mg Enoxaparin Sodium (Lovenox) 40 mg SC DAILY [facility] Last Admin: 11/28/16 10:37 Dose: 40 mg Famotidine (Pepcid) 20 mg PEG BID [facility] Last Admin: 11/28/16 18:22 Dose: 20 mg Finasteride (Proscar) 5 mg PEG DAILY [facility] Last Admin: 11/28/16 10:36 Dose: 5 mg Lactulose (Enulose) 20 gm PEG HS [facility] Last Admin: 11/28/16 21:22 Dose: 20 gm Levetiracetam (Keppra) 500 mg PEG BID [facility] Last Admin: 11/28/16 18:21 Dose: 500 mg Sennosides (Senokot Tab) 8.6 mg PEG DAILY [facility] Last Admin: 11/28/16 10:36 Dose: 8.6 mg Tamsulosin HCl (Flomax) 0.8 mg PEG DAILY [facility] Last Admin: 11/28/16 10:37 Dose: 0.8 mg - Labs Labs: 11/24/16 07:17 11/24/16 07:17 PT 10.6 SECONDS (9.7-12.2) 11/24/15 14:10 INR 1.0 11/24/15 14:10 APTT 25 SECONDS (21-34) 11/24/15 14:10 - Constitutional Appears: No Acute Distress - Head Exam Head Exam: ATRAUMATIC, NORMAL INSPECTION, NORMOCEPHALIC - Eye Exam Eye Exam: Normal appearance - ENT Exam ENT Exam: Mucous Membranes Moist - Neck Exam Additional comments: trach in place - Respiratory Exam Respiratory Exam: Clear to Ausculation Bilateral, NORMAL BREATHING PATTERN. absent: Accessory Muscle Use, Rales, Rhonchi, Wheezes - Cardiovascular Exam Cardiovascular Exam: REGULAR RHYTHM, +S1, +S2. absent: Murmur - GI/Abdominal Exam GI & Abdominal Exam: Distended, Soft Additional comments: PEG in place - Extremities Exam Extremities Exam: Normal Inspection - Neurological Exam Neurological Exam: Alert, Awake - Skin Skin Exam: Normal Color Assessment and Plan - Assessment and Plan (Free Text) Assessment: 64 yo M with unknown pmhx who was found unresponsive in driveway s/p cardiac arrest and anoxic encephalopathy Plan: Lasix 20 mg IV once as pt appears edematous 11/28 Anoxic encephalopathy No acute changes, continue weekly labs on Mondays Turn Q2 hours- Continue to monitor- no sacral ulcers noted Restart Isosource feeds through PEG @ reduced rate 60cc/hr per Nutrition recommendations Continue trach suctioning as needed Pending long term care social worker facility placement Abdominal Distention Restart Feeds. Goal rate of 60 cc/hr. Currently at 55 cc Start Senna Syrup 5mL PEG daily Start Lactulose PEG HS Abdomen X-RAY: Normal. No obstruction. No free air. PEG tube remains in satisfactory position. Lactulose 20 gm PEG once Hypoalbuminemia Resolved Prostat 30mL 1x / day Sacral Ulcers Resolved 11/21: Apply ointment daily to sacral area to prevent ulceration 11/18: Stage 1 ulcer- healed. Apply ointment daily to sacral area to prevent ulceration 11/16: c/w wound care management and turn Q2 10/30: No acute changes, healing linear 5 cm fissure, continue to turn patient Q2H. 10/29: Healing linear 5 cm fissure with area of erythema Nursing to use barrier to prevent further progression of abrasion Continue to monitor with skin checks and Q2H turning Urinary Retention 11/26: condom catheter discontinued as per family's wishes 11/25: 1640 in, 950 output 11/24: 820 in, 1750 output. 11/21:c/w condom catheter - 2540 ml Intake, 450 ml Output, continue to monitor to ensure that catheter is properly placed; Bladder scans every 2 days;nursing communication placed. Postvoid residual to be monitored in light of prior hx of retention 11/19:c/w condom catheter - 2940 ml Intake, 1350 ml Output, continue to monitor to ensure that catheter is properly placed; Bladder scans every 2 days;nursing communication placed 11/18:c/w condom catheter - 1260 ml Intake, 100 ml Output, continue to monitor to ensure that catheter is properly placed; Bladder scans every 2 days; 11/16: c/w condom catheter - 748 ml Intake, 200 ml Output, continue to monitor to ensure that catheter is properly placed 11/13: c/w condom catheter - 960 ml Intake, 401 ml Output, continue to monitor to ensure that catheter is properly placed 11/12: c/w condom catheter - 1560 ml Intake, 800 ml Output, continue to monitor to ensure that catheter is properly placed 577cc urine retained 10/20 Proscar 5mg PO daily Bethanecol 10 mg PO TID monitor I's and O's Hypernatremia F/U on scheduled labs 143 on 11/18 F/U labs in AM Stable Continue free water flushes of 100 cc Q8h Continue to monitor weekly labs Failure to thrive 11/25: Continue feeds. Advance to 30cc Previous note: Continuous Tube feeds at 65cc/hr goal per nutrition recommendations with 100cc of free water flush q8H Measure weight weekly. Continue to monitor Respiratory failure 11/28: trach collar in place - normal resp pattern, thick secretions Trach collar in place, with some secretions, will suction when needed, continue with current management. Previous note Continue Current management of trach collar and secretions- continue to suction as needed CAD (coronary artery disease) s/p cardiac stents on 06/13/15 ASA 81mg via PEG daily Coreg 3.125mg PEG BID Plavix 75mg- Discontinued as it has been over 1 year. Seizures Keppra 500mg PEG BID for seizure prophylaxis Lower extremity edema Lasix via PEG as needed. Administered. Prophylactic measure Pepcid 20 mg PEG BID Lovenox 40mg SC daily SCDs Continue to monitor medication administrations and clinical presentation Will discuss case with Dr. Stepan Ramon PGY1 <Donnell Ying - Last Filed: 11/29/16 14:24> Objective - Vital Signs/Intake and Output Vital Signs (last 24 hours): Temp Pulse Resp BP Pulse Ox 98.7 F 73 20 122/78 99 11/29/16 07:55 11/29/16 07:55 11/29/16 07:55 11/29/16 07:55 11/29/16 07:55 Intake and Output: 11/29/16 11/29/16 06:59 18:59 Intake Total 1210 Output Total 350 100 Balance 860 -100 - Medications Medications: Current Medications Aspirin (Aspirin Chewable) 81 mg PEG DAILY [facility] Last Admin: 11/29/16 11:20 Dose: 81 mg Bethanechol Chloride (Urecholine) 10 mg PEG TID [facility] Last Admin: 11/29/16 13:54 Dose: Not Given Carvedilol (Coreg) 3.125 mg PEG BID [facility] Last Admin: 11/29/16 11:20 Dose: 3.125 mg Enoxaparin Sodium (Lovenox) 40 mg SC DAILY [facility] Last Admin: 11/29/16 11:20 Dose: 40 mg Famotidine (Pepcid) 20 mg PEG BID [facility] Last Admin: 11/29/16 11:19 Dose: 20 mg Finasteride (Proscar) 5 mg PEG DAILY [facility] Last Admin: 11/29/16 11:19 Dose: 5 mg Lactulose (Enulose) 20 gm PEG HS [facility] Last Admin: 11/28/16 21:22 Dose: 20 gm Levetiracetam (Keppra) 500 mg PEG BID [facility] Last Admin: 11/29/16 11:19 Dose: 500 mg Sennosides (Senokot Tab) 8.6 mg PEG DAILY [facility] Last Admin: 11/29/16 11:19 Dose: 8.6 mg Tamsulosin HCl (Flomax) 0.8 mg PEG DAILY [facility] Last Admin: 11/29/16 11:20 Dose: 0.8 mg - Labs Labs: 11/24/16 07:17 11/24/16 07:17 PT 10.6 SECONDS (9.7-12.2) 11/24/15 14:10 INR 1.0 11/24/15 14:10 APTT 25 SECONDS (21-34) 11/24/15 14:10 Attending/Attestation - Attestation I have personally seen and examined this patient.: Yes I have fully participated in the care of the patient.: Yes I have reviewed all pertinent clinical information, including history, physical exam and plan: Yes Notes (Text): 11/29/16 14:23 Patent was seen and examined No change in clinical condition Continue current management Turn and reposition every two hours
[2016-11-29] MEDS: levETIRAcetam 100 mg/ml (5ml) Oral Syringe PEG SCH ×2 (11:19→17:53)
[2016-11-29] MEDS: Enoxaparin 40 mg Syringe SC SCH (11:20)
--- NOTE | 2016-11-30 01:25 | CP.PCM.PN ---
<Imani Ramon - Last Filed: 11/30/16 02:33> Subjective - Date & Time of Evaluation Date of Evaluation: 11/30/16 Time of Evaluation: 02:33 - Subjective Subjective: PGY1 Medicine Note for Dr. Ying Patient seen and examined at bedside. No acute events noted. Patient lying in bed in no acute distress. Tolertaing feeds @ 60cc/hr. [place] cath in place. ROS unobtainable. Objective - Vital Signs/Intake and Output Vital Signs (last 24 hours): Temp Pulse Resp BP Pulse Ox 98 F 86 20 144/83 100 11/30/16 00:00 11/30/16 00:00 11/30/16 00:00 11/30/16 00:00 11/30/16 00:00 Intake and Output: 11/29/16 11/30/16 18:59 06:59 Intake Total 620 780 Output Total 100 450 Balance 520 330 - Medications Medications: Current Medications Aspirin (Aspirin Chewable) 81 mg PEG DAILY [facility] Last Admin: 11/29/16 11:20 Dose: 81 mg Bethanechol Chloride (Urecholine) 10 mg PEG TID [facility] Last Admin: 11/29/16 17:43 Dose: 10 mg Carvedilol (Coreg) 3.125 mg PEG BID [facility] Last Admin: 11/29/16 17:42 Dose: 3.125 mg Enoxaparin Sodium (Lovenox) 40 mg SC DAILY [facility] Last Admin: 11/29/16 11:20 Dose: 40 mg Famotidine (Pepcid) 20 mg PEG BID [facility] Last Admin: 11/29/16 17:43 Dose: 20 mg Finasteride (Proscar) 5 mg PEG DAILY [facility] Last Admin: 11/29/16 11:19 Dose: 5 mg Lactulose (Enulose) 20 gm PEG HS [facility] Last Admin: 11/29/16 21:38 Dose: 20 gm Levetiracetam (Keppra) 500 mg PEG BID [facility] Last Admin: 11/29/16 17:53 Dose: 500 mg Sennosides (Senokot Tab) 8.6 mg PEG DAILY [facility] Last Admin: 11/29/16 11:19 Dose: 8.6 mg Tamsulosin HCl (Flomax) 0.8 mg PEG DAILY [facility] Last Admin: 11/29/16 11:20 Dose: 0.8 mg - Labs Labs: 11/24/16 07:17 11/24/16 07:17 PT 10.6 SECONDS (9.7-12.2) 11/24/15 14:10 INR 1.0 11/24/15 14:10 APTT 25 SECONDS (21-34) 11/24/15 14:10 - Constitutional Appears: No Acute Distress - Head Exam Head Exam: ATRAUMATIC, NORMAL INSPECTION, NORMOCEPHALIC - Eye Exam Eye Exam: Normal appearance. absent: Conjunctival injection, Scleral icterus - ENT Exam ENT Exam: Mucous Membranes Moist - Neck Exam Additional comments: trach collar in place - Respiratory Exam Respiratory Exam: Clear to Ausculation Bilateral, NORMAL BREATHING PATTERN. absent: Accessory Muscle Use, Rales, Rhonchi, Wheezes, Respiratory Distress - Cardiovascular Exam Cardiovascular Exam: REGULAR RHYTHM, RRR, +S1, +S2 - GI/Abdominal Exam GI & Abdominal Exam: Distended, Soft Additional comments: PEG in place - Extremities Exam Extremities Exam: Normal Inspection - Neurological Exam Neurological Exam: Awake - Skin Skin Exam: Dry, Intact, Normal Color, Warm Assessment and Plan - Assessment and Plan (Free Text) Assessment: 64 yo M with unknown pmhx who was found unresponsive in driveway s/p cardiac arrest and anoxic encephalopathy Plan: Anoxic encephalopathy No acute changes, continue weekly labs on Mondays Turn Q2 hours- Continue to monitor- no sacral ulcers noted Restart Isosource feeds through PEG @ reduced rate 60cc/hr per Nutrition recommendations Continue trach suctioning as needed Pending technician terminal and repeater facility placement Abdominal Distention Restart Feeds. At goal rate 60cc/hr Start Senna Syrup 5mL PEG daily Start Lactulose PEG HS Abdomen X-RAY: Normal. No obstruction. No free air. PEG tube remains in satisfactory position. Lactulose 20 gm PEG once Hypoalbuminemia Resolved Prostat 30mL 1x / day Sacral Ulcers Resolved 11/21: Apply ointment daily to sacral area to prevent ulceration 11/18: Stage 1 ulcer- healed. Apply ointment daily to sacral area to prevent ulceration 11/16: c/w wound care management and turn Q2 10/30: No acute changes, healing linear 5 cm fissure, continue to turn patient Q2H. 10/29: Healing linear 5 cm fissure with area of erythema Nursing to use barrier to prevent further progression of abrasion Continue to monitor with skin checks and Q2H turning Urinary Retention 11/30: [place] cath in place 11/25: 1640 in, 950 output 11/24: 820 in, 1750 output. 11/21:c/w condom catheter - 2540 ml Intake, 450 ml Output, continue to monitor to ensure that catheter is properly placed; Bladder scans every 2 days;nursing communication placed. Postvoid residual to be monitored in light of prior hx of retention 11/19:c/w condom catheter - 2940 ml Intake, 1350 ml Output, continue to monitor to ensure that catheter is properly placed; Bladder scans every 2 days;nursing communication placed 11/18:c/w condom catheter - 1260 ml Intake, 100 ml Output, continue to monitor to ensure that catheter is properly placed; Bladder scans every 2 days; 11/16: c/w condom catheter - 748 ml Intake, 200 ml Output, continue to monitor to ensure that catheter is properly placed 11/13: c/w condom catheter - 960 ml Intake, 401 ml Output, continue to monitor to ensure that catheter is properly placed 11/12: c/w condom catheter - 1560 ml Intake, 800 ml Output, continue to monitor to ensure that catheter is properly placed 577cc urine retained 10/20 Proscar 5mg PO daily Bethanecol 10 mg PO TID monitor I's and O's Hypernatremia F/U on scheduled labs 143 on 11/18 F/U labs in AM Stable Continue free water flushes of 100 cc Q8h Continue to monitor weekly labs Failure to thrive 11/25: Continue feeds. Advance to 30cc Previous note: Continuous Tube feeds at 65cc/hr goal per nutrition recommendations with 100cc of free water flush q8H Measure weight weekly. Continue to monitor Respiratory failure 11/28: trach collar in place - normal resp pattern, thick secretions Trach collar in place, with some secretions, will suction when needed, continue with current management. Previous note Continue Current management of trach collar and secretions- continue to suction as needed CAD (coronary artery disease) s/p cardiac stents on 06/13/15 ASA 81mg via PEG daily Coreg 3.125mg PEG BID Plavix 75mg- Discontinued as it has been over 1 year. Seizures Keppra 500mg PEG BID for seizure prophylaxis Lower extremity edema Lasix via PEG as needed. Administered. Prophylactic measure Pepcid 20 mg PEG BID Lovenox 40mg SC daily SCDs Continue to monitor medication administrations and clinical presentation Will discuss case with Dr. Stepan Ramon PGY1 <Donnell Ying - Last Filed: 11/30/16 14:18> Objective - Vital Signs/Intake and Output Vital Signs (last 24 hours): Temp Pulse Resp BP Pulse Ox 97.7 F 70 20 119/80 100 11/30/16 08:11 11/30/16 08:11 11/30/16 08:11 11/30/16 08:11 11/30/16 08:11 Intake and Output: 11/30/16 11/30/16 06:59 18:59 Intake Total 780 680 Output Total 450 800 Balance 330 -120 - Medications Medications: Current Medications Aspirin (Aspirin Chewable) 81 mg PEG DAILY [facility] Last Admin: 11/30/16 11:19 Dose: 81 mg Bethanechol Chloride (Urecholine) 10 mg PEG TID [facility] Last Admin: 11/30/16 14:04 Dose: 10 mg Carvedilol (Coreg) 3.125 mg PEG BID [facility] Last Admin: 11/30/16 11:19 Dose: 3.125 mg Enoxaparin Sodium (Lovenox) 40 mg SC DAILY [facility] Last Admin: 11/30/16 11:18 Dose: 40 mg Famotidine (Pepcid) 20 mg PEG BID [facility] Last Admin: 11/30/16 11:19 Dose: 20 mg Finasteride (Proscar) 5 mg PEG DAILY [facility] Last Admin: 11/30/16 11:19 Dose: 5 mg Lactulose (Enulose) 20 gm PEG HS [facility] Last Admin: 11/29/16 21:38 Dose: 20 gm Levetiracetam (Keppra) 500 mg PEG BID [facility] Last Admin: 11/30/16 11:18 Dose: 500 mg Sennosides (Senokot Tab) 8.6 mg PEG DAILY [facility] Last Admin: 11/30/16 11:19 Dose: 8.6 mg Tamsulosin HCl (Flomax) 0.8 mg PEG DAILY [facility] Last Admin: 11/30/16 11:18 Dose: 0.8 mg - Labs Labs: 11/24/16 07:17 11/24/16 07:17 PT 10.6 SECONDS (9.7-12.2) 11/24/15 14:10 INR 1.0 11/24/15 14:10 APTT 25 SECONDS (21-34) 11/24/15 14:10 Attending/Attestation - Attestation I have personally seen and examined this patient.: Yes I have fully participated in the care of the patient.: Yes I have reviewed all pertinent clinical information, including history, physical exam and plan: Yes Notes (Text): 11/30/16 14:17 Patient seen and examined at bedside No change in clinical condition Continue current management [place] catheter is in place Continue to turn and position every 2 hours I agree with the above history and physical and assessment/plan by the resident
[2016-11-30] MEDS: levETIRAcetam 100 mg/ml (5ml) Oral Syringe PEG SCH ×2 (11:18→18:04)
[2016-11-30] MEDS: Enoxaparin 40 mg Syringe SC SCH (11:18)
--- NOTE | 2016-12-01 07:53 | CP.PCM.PN ---
<Imani Ramon - Last Filed: 12/01/16 18:37> Subjective - Date & Time of Evaluation Date of Evaluation: 12/01/16 Time of Evaluation: 07:15 - Subjective Subjective: PGY1 Medicine Note for Dr. Beth Patient seen and examined at bedside. No acute events noted. Patient lying in bed in no acute distress. Tolertaing feeds @ 60cc/hr. [place] cath in place. Patient's sacral ulcers healing. ROS unobtainable. Objective - Vital Signs/Intake and Output Vital Signs (last 24 hours): Temp Pulse Resp BP Pulse Ox 98.4 F 86 20 128/73 98 12/01/16 00:00 12/01/16 00:00 12/01/16 00:00 12/01/16 00:00 12/01/16 00:00 Intake and Output: 12/01/16 12/01/16 06:59 18:59 Intake Total 1560 Output Total 950 Balance 610 - Medications Medications: Current Medications Aspirin (Aspirin Chewable) 81 mg PEG DAILY [facility] Last Admin: 11/30/16 11:19 Dose: 81 mg Bethanechol Chloride (Urecholine) 10 mg PEG TID [facility] Last Admin: 11/30/16 18:05 Dose: 10 mg Carvedilol (Coreg) 3.125 mg PEG BID [facility] Last Admin: 11/30/16 18:04 Dose: 3.125 mg Enoxaparin Sodium (Lovenox) 40 mg SC DAILY [facility] Last Admin: 11/30/16 11:18 Dose: 40 mg Famotidine (Pepcid) 20 mg PEG BID [facility] Last Admin: 11/30/16 18:05 Dose: 20 mg Finasteride (Proscar) 5 mg PEG DAILY [facility] Last Admin: 11/30/16 11:19 Dose: 5 mg Lactulose (Enulose) 20 gm PEG HS [facility] Last Admin: 11/30/16 21:49 Dose: 20 gm Levetiracetam (Keppra) 500 mg PEG BID [facility] Last Admin: 11/30/16 18:04 Dose: 500 mg Sennosides (Senokot Tab) 8.6 mg PEG DAILY [facility] Last Admin: 11/30/16 11:19 Dose: 8.6 mg Tamsulosin HCl (Flomax) 0.8 mg PEG DAILY [facility] Last Admin: 11/30/16 11:18 Dose: 0.8 mg - Labs Labs: 11/24/16 07:17 11/24/16 07:17 PT 10.6 SECONDS (9.7-12.2) 11/24/15 14:10 INR 1.0 11/24/15 14:10 APTT 25 SECONDS (21-34) 11/24/15 14:10 - Constitutional Appears: No Acute Distress - Head Exam Head Exam: ATRAUMATIC, NORMAL INSPECTION, NORMOCEPHALIC - Eye Exam Eye Exam: Normal appearance. absent: Conjunctival injection, Scleral icterus - ENT Exam ENT Exam: Mucous Membranes Moist - Neck Exam Additional comments: trach collar in place - Respiratory Exam Respiratory Exam: Clear to Ausculation Bilateral, NORMAL BREATHING PATTERN. absent: Accessory Muscle Use, Rales, Rhonchi, Wheezes, Respiratory Distress - Cardiovascular Exam Cardiovascular Exam: REGULAR RHYTHM, RRR, +S1, +S2 - GI/Abdominal Exam GI & Abdominal Exam: Distended, Soft Additional comments: PEG in place - Extremities Exam Extremities Exam: Normal Inspection Additional comments: UE bilateral slightly swollen - Back Exam Additional comments: sacral ulcers healed- pink base - Neurological Exam Neurological Exam: Awake - Psychiatric Exam Psychiatric exam: Normal Affect, Normal Mood - Skin Skin Exam: Dry, Intact, Normal Color, Warm Assessment and Plan - Assessment and Plan (Free Text) Assessment: 64 yo M with unknown pmhx who was found unresponsive in driveway s/p cardiac arrest and anoxic encephalopathy Plan: Anoxic encephalopathy No acute changes, continue weekly labs on Mondays Turn Q2 hours- Continue to monitor- no sacral ulcers noted Restart Isosource feeds through PEG @ reduced rate 60cc/hr per Nutrition recommendations Continue trach suctioning as needed Pending snf facility placement Abdominal Distention Restart Feeds. At goal rate 60cc/hr Start Senna Syrup 5mL PEG daily Start Lactulose PEG HS Abdomen X-RAY: Normal. No obstruction. No free air. PEG tube remains in satisfactory position. Lactulose 20 gm PEG once Hypoalbuminemia Resolved Prostat 30mL 1x / day Sacral Ulcers Resolved 11/21: Apply ointment daily to sacral area to prevent ulceration 11/18: Stage 1 ulcer- healed. Apply ointment daily to sacral area to prevent ulceration 11/16: c/w wound care management and turn Q2 10/30: No acute changes, healing linear 5 cm fissure, continue to turn patient Q2H. 10/29: Healing linear 5 cm fissure with area of erythema Nursing to use barrier to prevent further progression of abrasion Continue to monitor with skin checks and Q2H turning Urinary Retention 12/01: [place] cath in place. Bladder scans every 2 days and straight cath as needed. 11/25: 1640 in, 950 output 11/24: 820 in, 1750 output. 11/21:c/w condom catheter - 2540 ml Intake, 450 ml Output, continue to monitor to ensure that catheter is properly placed; Bladder scans every 2 days;nursing communication placed. Postvoid residual to be monitored in light of prior hx of retention 11/19:c/w condom catheter - 2940 ml Intake, 1350 ml Output, continue to monitor to ensure that catheter is properly placed; Bladder scans every 2 days;nursing communication placed 11/18:c/w condom catheter - 1260 ml Intake, 100 ml Output, continue to monitor to ensure that catheter is properly placed; Bladder scans every 2 days; 11/16: c/w condom catheter - 748 ml Intake, 200 ml Output, continue to monitor to ensure that catheter is properly placed 11/13: c/w condom catheter - 960 ml Intake, 401 ml Output, continue to monitor to ensure that catheter is properly placed 11/12: c/w condom catheter - 1560 ml Intake, 800 ml Output, continue to monitor to ensure that catheter is properly placed 577cc urine retained 10/20 Proscar 5mg PO daily Bethanecol 10 mg PO TID monitor I's and O's Hypernatremia 144 on 12/01 Stable Continue free water flushes of 100 cc Q8h Continue to monitor weekly labs Failure to thrive 12/01: Continue feeds Previous note: Continuous Tube feeds at 65cc/hr goal per nutrition recommendations with 100cc of free water flush q8H Measure weight weekly. Continue to monitor Respiratory failure 12/01: trach collar in place - normal resp pattern, thick secretions Trach collar in place, with some secretions, will suction when needed, continue with current management. Previous note Continue Current management of trach collar and secretions- continue to suction as needed CAD (coronary artery disease) s/p cardiac stents on 06/13/15 ASA 81mg via PEG daily Coreg 3.125mg PEG BID Plavix 75mg- Discontinued as it has been over 1 year. Seizures Keppra 500mg PEG BID for seizure prophylaxis Lower extremity edema Lasix via PEG as needed. Administered. Prophylactic measure Pepcid 20 mg PEG BID Lovenox 40mg SC daily SCDs Continue to monitor medication administrations and clinical presentation Case Discussed with Dr. Ignacia Ramon PGY1 <Nathaniel Beth - Last Filed: 12/24/16 12:10> Objective - Vital Signs/Intake and Output Vital Signs (last 24 hours): Temp Pulse Resp BP Pulse Ox 98.6 F 92 H 20 126/93 H 97 12/24/16 07:50 12/24/16 07:50 12/24/16 07:50 12/24/16 07:50 12/24/16 07:50 Intake and Output: 12/24/16 12/24/16 06:59 18:59 Intake Total 1660 Output Total 1500 Balance 160 - Medications Medications: Current Medications Aspirin (Aspirin Chewable) 81 mg PEG DAILY [facility] Last Admin: 12/24/16 11:02 Dose: 81 mg Bethanechol Chloride (Urecholine) 20 mg PEG TID [facility] Last Admin: 12/24/16 11:03 Dose: 20 mg Carvedilol (Coreg) 3.125 mg PEG BID [facility] Last Admin: 12/24/16 11:02 Dose: 3.125 mg Clopidogrel Bisulfate (Plavix) 75 mg PO DAILY [facility] Last Admin: 12/24/16 11:02 Dose: 75 mg Enoxaparin Sodium (Lovenox) 40 mg SC DAILY [facility] Last Admin: 12/24/16 11:03 Dose: 40 mg Famotidine (Pepcid) 20 mg PEG BID [facility] Last Admin: 12/24/16 11:03 Dose: 20 mg Finasteride (Proscar) 5 mg PEG DAILY [facility] Last Admin: 12/24/16 11:02 Dose: 5 mg Levetiracetam (Keppra) 500 mg PEG BID [facility] Last Admin: 12/24/16 11:02 Dose: 500 mg Tamsulosin HCl (Flomax) 0.8 mg PEG DAILY [facility] Last Admin: 12/24/16 11:02 Dose: 0.8 mg - Labs Labs: 12/21/16 07:39 12/21/16 07:39 PT 10.6 SECONDS (9.7-12.2) 11/24/15 14:10 INR 1.0 11/24/15 14:10 APTT 25 SECONDS (21-34) 11/24/15 14:10 Attending/Attestation - Attestation I have personally seen and examined this patient.: Yes I have fully participated in the care of the patient.: Yes I have reviewed all pertinent clinical information, including history, physical exam and plan: Yes Notes (Text): Anoxic encephalopathy - Chronic, at baseline, no improvement; CAD s/p stent - continue ASA and plavix; coreg; Urinary retention - On bethanecol; periodic bladder scans; Sacral decubitus ulcer stage I - continue frequent repositioning and protective ointment;
[2016-12-01 08:33] LABS: BASO # 0.1 K/uL (0.0-0.2); BASO % 0.6 % (0.0-2.0); EOS # 0.3 K/uL (0.0-0.7); EOS % 3.7 % (0.0-4.0); LYMPH # 2.5 K/uL (1.0-4.3); LYMPH % 27.6 % (20.0-40.0); MEAN CELL VOLUME 88.3 fL (80.0-94.0); MEAN CORPUSCULAR HEMOGLOBIN 28.4 pg (27.0-31.0); MEAN CORPUSCULAR HGB CONC 32.2 g/dL (33.0-37.0); MEAN PLATELET VOLUME 9.5 fL (7.2-11.7); MONO # 0.9 K/uL (0.0-0.8); MONO % 9.7 % (0.0-10.0); NEUT # 5.4 K/uL (1.8-7.0); NEUT % 58.4 % (50.0-75.0); NRBC % 0.1 % (0.0-2.0); RBC 4.58 Mil/uL (4.40-5.90); WHITE BLOOD COUNT 9.2 K/uL (4.8-10.8)
[2016-12-01 08:44] LABS: ALBUMIN 3.5 g/dL (3.5-5.0)
[2016-12-01 08:47] LABS: ALB/GLOB RATIO 0.9 (1.0-2.1); AST/SGOT 25 U/L (17-59); GFR NON-AFRICAN AMERICAN > 60
[2016-12-01 08:48] LABS: ALT/SGPT 64 U/L (21-72); BLOOD UREA NITROGEN 20 mg/dL (9-20); CALCIUM 8.6 mg/dl (8.6-10.4)
[2016-12-01] MEDS: levETIRAcetam 100 mg/ml (5ml) Oral Syringe PEG SCH ×2 (11:02→17:49)
[2016-12-01] MEDS: Enoxaparin 40 mg Syringe SC SCH (11:02)
--- NOTE | 2016-12-02 07:04 | CP.PCM.PN ---
<Imani Ramon - Last Filed: 12/02/16 14:55> Subjective - Date & Time of Evaluation Date of Evaluation: 12/02/16 Time of Evaluation: 10:00 - Subjective Subjective: PGY1 Medicine Note for Dr. Beth Patient seen and examined at bedside. Patient had no acute events overnight. Patient lying in bed in no acute distress. Patient tolerating diet. Sacral ulcers healing Patient had bladder scan overnight that showed 218cc ROS unobtainable Objective - Vital Signs/Intake and Output Vital Signs (last 24 hours): Temp Pulse Resp BP Pulse Ox 98.1 F 76 20 122/78 99 12/01/16 23:51 12/01/16 23:51 12/01/16 23:51 12/01/16 23:51 12/01/16 23:51 Intake and Output: 12/02/16 12/02/16 06:59 18:59 Intake Total 780 Output Total 350 Balance 430 - Medications Medications: Current Medications Aspirin (Aspirin Chewable) 81 mg PEG DAILY [facility] Last Admin: 12/01/16 11:01 Dose: 81 mg Bethanechol Chloride (Urecholine) 10 mg PEG TID [facility] Last Admin: 12/01/16 17:49 Dose: 10 mg Carvedilol (Coreg) 3.125 mg PEG BID [facility] Last Admin: 12/01/16 17:49 Dose: 3.125 mg Enoxaparin Sodium (Lovenox) 40 mg SC DAILY [facility] Last Admin: 12/01/16 11:02 Dose: 40 mg Famotidine (Pepcid) 20 mg PEG BID [facility] Last Admin: 12/01/16 17:49 Dose: 20 mg Finasteride (Proscar) 5 mg PEG DAILY [facility] Last Admin: 12/01/16 11:03 Dose: 5 mg Lactulose (Enulose) 20 gm PEG HS [facility] Last Admin: 12/01/16 21:53 Dose: 20 gm Levetiracetam (Keppra) 500 mg PEG BID [facility] Last Admin: 12/01/16 17:49 Dose: 500 mg Sennosides (Senokot Tab) 8.6 mg PEG DAILY [facility] Last Admin: 12/01/16 11:03 Dose: 8.6 mg Tamsulosin HCl (Flomax) 0.8 mg PEG DAILY [facility] Last Admin: 12/01/16 11:01 Dose: 0.8 mg - Labs Labs: 12/01/16 08:25 12/01/16 08:25 PT 10.6 SECONDS (9.7-12.2) 11/24/15 14:10 INR 1.0 11/24/15 14:10 APTT 25 SECONDS (21-34) 11/24/15 14:10 - Constitutional Appears: Chronically Ill - Head Exam Head Exam: NORMAL INSPECTION - Eye Exam Eye Exam: Normal appearance. absent: Conjunctival injection, Scleral icterus - ENT Exam ENT Exam: Mucous Membranes Dry - Neck Exam Additional comments: trach collar in place - Respiratory Exam Respiratory Exam: Clear to Ausculation Bilateral, NORMAL BREATHING PATTERN. absent: Accessory Muscle Use, Respiratory Distress - Cardiovascular Exam Cardiovascular Exam: REGULAR RHYTHM, RRR, +S1, +S2 - GI/Abdominal Exam GI & Abdominal Exam: Distended, Soft Additional comments: PEG in place - Extremities Exam Extremities Exam: Normal Inspection. absent: Pedal Edema - Back Exam Additional comments: healed sacral ulcers- pink base - Neurological Exam Neurological Exam: Awake - Psychiatric Exam Psychiatric exam: Normal Affect, Normal Mood - Skin Skin Exam: Dry, Intact, Normal Color, Warm Assessment and Plan - Assessment and Plan (Free Text) Assessment: 64 yo M with unknown pmhx who was found unresponsive in driveway s/p cardiac arrest and anoxic encephalopathy Plan: Anoxic encephalopathy No acute changes, continue weekly labs on Mondays Turn Q2 hours- Continue to monitor Restart Isosource feeds through PEG @ reduced rate 60cc/hr per Nutrition recommendations Continue trach suctioning as needed Pending technician terminal and repeater facility placement Abdominal Distention Restart Feeds. At goal rate 60cc/hr Start Senna Syrup 5mL PEG daily Start Lactulose PEG HS Bladder scan every 2 days Abdomen X-RAY: Normal. No obstruction. No free air. PEG tube remains in satisfactory position. Lactulose 20 gm PEG once Hypoalbuminemia Resolved Prostat 30mL 1x / day Sacral Ulcers Resolved 11/21: Apply ointment daily to sacral area to prevent ulceration 11/18: Stage 1 ulcer- healed. Apply ointment daily to sacral area to prevent ulceration 11/16: c/w wound care management and turn Q2 10/30: No acute changes, healing linear 5 cm fissure, continue to turn patient Q2H. 10/29: Healing linear 5 cm fissure with area of erythema Nursing to use barrier to prevent further progression of abrasion Continue to monitor with skin checks and Q2H turning Urinary Retention [place] cath in place. Bladder scans every 2 days and straight cath as needed. Flomax 0.8mg PEG daily Proscar 5mg PO daily Bethanecol 10 mg PO TID monitor I's and O's Hypernatremia 144 on 12/01 Stable Continue free water flushes of 100 cc Q8h Continue to monitor weekly labs Failure to thrive Continue feeds 100cc of free water flush q8H Measure weight weekly. Continue to monitor Respiratory failure trach collar in place - normal resp pattern, thick secretions CAD (coronary artery disease) s/p cardiac stents on 06/13/15 ASA 81mg via PEG daily Coreg 3.125mg PEG BID Seizures Keppra 500mg PEG BID for seizure prophylaxis Lower extremity edema Lasix via PEG as needed. Administered. Prophylactic measure Pepcid 20 mg PEG BID Lovenox 40mg SC daily Sennosides 8.6mg PEG daily SCDs and offloading boots Continue to monitor medication administrations and clinical presentation Case Discussed with Dr. Ignacia Ramon PGY1 <Nathaniel Beth - Last Filed: 12/24/16 12:12> Objective - Vital Signs/Intake and Output Vital Signs (last 24 hours): Temp Pulse Resp BP Pulse Ox 98.6 F 92 H 20 126/93 H 97 12/24/16 07:50 12/24/16 07:50 12/24/16 07:50 12/24/16 07:50 12/24/16 07:50 Intake and Output: 12/24/16 12/24/16 06:59 18:59 Intake Total 1660 Output Total 1500 Balance 160 - Medications Medications: Current Medications Aspirin (Aspirin Chewable) 81 mg PEG DAILY [facility] Last Admin: 12/24/16 11:02 Dose: 81 mg Bethanechol Chloride (Urecholine) 20 mg PEG TID [facility] Last Admin: 12/24/16 11:03 Dose: 20 mg Carvedilol (Coreg) 3.125 mg PEG BID [facility] Last Admin: 12/24/16 11:02 Dose: 3.125 mg Clopidogrel Bisulfate (Plavix) 75 mg PO DAILY [facility] Last Admin: 12/24/16 11:02 Dose: 75 mg Enoxaparin Sodium (Lovenox) 40 mg SC DAILY [facility] Last Admin: 12/24/16 11:03 Dose: 40 mg Famotidine (Pepcid) 20 mg PEG BID [facility] Last Admin: 12/24/16 11:03 Dose: 20 mg Finasteride (Proscar) 5 mg PEG DAILY [facility] Last Admin: 12/24/16 11:02 Dose: 5 mg Levetiracetam (Keppra) 500 mg PEG BID [facility] Last Admin: 12/24/16 11:02 Dose: 500 mg Tamsulosin HCl (Flomax) 0.8 mg PEG DAILY [facility] Last Admin: 12/24/16 11:02 Dose: 0.8 mg - Labs Labs: 12/21/16 07:39 12/21/16 07:39 PT 10.6 SECONDS (9.7-12.2) 11/24/15 14:10 INR 1.0 11/24/15 14:10 APTT 25 SECONDS (21-34) 11/24/15 14:10 Attending/Attestation - Attestation I have personally seen and examined this patient.: Yes I have fully participated in the care of the patient.: Yes I have reviewed all pertinent clinical information, including history, physical exam and plan: Yes Notes (Text): Anoxic encephalopathy - Chronic, at baseline, no improvement; CAD s/p stent - continue ASA and plavix; coreg; Urinary retention - On bethanecol; bladder scan showed 218 cc volume, but unclear whether this is post-void residual (difficult to get scan right after patient voids); will repeat scans periodically; Sacral decubitus ulcer stage I - continue frequent repositioning and protective ointment;
[2016-12-02] MEDS: Enoxaparin 40 mg Syringe SC SCH (10:35)
[2016-12-02] MEDS: levETIRAcetam 100 mg/ml (5ml) Oral Syringe PEG SCH ×2 (10:37→19:02)
--- NOTE | 2016-12-03 06:21 | CP.PCM.PN ---
<Imani Ramon - Last Filed: 12/03/16 15:54> Subjective - Date & Time of Evaluation Date of Evaluation: 12/03/16 Time of Evaluation: 10:00 - Subjective Subjective: PGY1 Medicine Note for Dr. Beth Patient seen and examined at bedside. Overnight patient was noticed to have some abdominal distention- tube feeds were stopped. Patient's bladder scan was > 250cc and a baker was inserted. Patient lying in bed in no acute distress this AM Sacral ulcers healing ROS unobtainable Objective - Vital Signs/Intake and Output Vital Signs (last 24 hours): Temp Pulse Resp BP Pulse Ox 97.4 F L 77 20 109/73 99 12/03/16 00:00 12/03/16 00:00 12/03/16 00:00 12/03/16 00:00 12/03/16 00:00 Intake and Output: 12/02/16 12/03/16 18:59 06:59 Intake Total 1460 500 Output Total 700 600 Balance 760 -100 - Medications Medications: Current Medications Aspirin (Aspirin Chewable) 81 mg PEG DAILY [facility] Last Admin: 12/02/16 10:36 Dose: 81 mg Bethanechol Chloride (Urecholine) 10 mg PEG TID [facility] Last Admin: 12/02/16 19:04 Dose: 10 mg Carvedilol (Coreg) 3.125 mg PEG BID [facility] Last Admin: 12/02/16 19:02 Dose: 3.125 mg Enoxaparin Sodium (Lovenox) 40 mg SC DAILY [facility] Last Admin: 12/02/16 10:35 Dose: 40 mg Famotidine (Pepcid) 20 mg PEG BID [facility] Last Admin: 12/02/16 19:02 Dose: 20 mg Finasteride (Proscar) 5 mg PEG DAILY [facility] Last Admin: 12/02/16 10:36 Dose: 5 mg Lactulose (Enulose) 20 gm PEG HS [facility] Last Admin: 12/02/16 21:41 Dose: 20 gm Levetiracetam (Keppra) 500 mg PEG BID [facility] Last Admin: 12/02/16 19:02 Dose: 500 mg Sennosides (Senokot Tab) 8.6 mg PEG DAILY [facility] Last Admin: 12/02/16 10:36 Dose: 8.6 mg Tamsulosin HCl (Flomax) 0.8 mg PEG DAILY [facility] Last Admin: 12/02/16 10:36 Dose: 0.8 mg - Labs Labs: 12/01/16 08:25 12/01/16 08:25 PT 10.6 SECONDS (9.7-12.2) 11/24/15 14:10 INR 1.0 11/24/15 14:10 APTT 25 SECONDS (21-34) 11/24/15 14:10 - Constitutional Appears: Chronically Ill - Head Exam Head Exam: NORMAL INSPECTION - Eye Exam Eye Exam: Normal appearance. absent: Conjunctival injection, Scleral icterus - ENT Exam ENT Exam: Mucous Membranes Dry - Neck Exam Additional comments: trach collar in place - Respiratory Exam Respiratory Exam: Clear to Ausculation Bilateral, NORMAL BREATHING PATTERN. absent: Accessory Muscle Use, Rales, Rhonchi, Wheezes, Respiratory Distress - Cardiovascular Exam Cardiovascular Exam: REGULAR RHYTHM, RRR, +S1, +S2 - GI/Abdominal Exam GI & Abdominal Exam: Distended, Soft Additional comments: PEG in place - Extremities Exam Extremities Exam: Normal Inspection. absent: Pedal Edema, Tenderness - Back Exam Back Exam: absent: rash noted Additional comments: healed sacral ulcers- pink base - Neurological Exam Neurological Exam: Awake - Psychiatric Exam Psychiatric exam: Normal Affect, Normal Mood - Skin Skin Exam: Dry, Intact Assessment and Plan - Assessment and Plan (Free Text) Assessment: 64 yo M with unknown pmhx who was found unresponsive in driveway s/p cardiac arrest and anoxic encephalopathy Plan: Anoxic encephalopathy No acute changes, continue weekly labs on Mondays Turn Q2 hours- Continue to monitor Restart Isosource feeds through PEG @ reduced rate 60cc/hr per Nutrition recommendations Continue trach suctioning as needed 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 No obstruction. No free air. PEG tube remains in satisfactory position. Lactulose 20 gm PEG once Hypoalbuminemia Resolved Prostat 30mL 1x / day Sacral Ulcers Resolved 11/21: Apply ointment daily to sacral area to prevent ulceration 11/18: Stage 1 ulcer- healed. Apply ointment daily to sacral area to prevent ulceration 11/16: c/w wound care management and turn Q2 10/30: No acute changes, healing linear 5 cm fissure, continue to turn patient Q2H. 10/29: Healing linear 5 cm fissure with area of erythema Nursing to use barrier to prevent further progression of abrasion Continue to monitor with skin checks and Q2H turning Urinary Retention f/u repeat urine C&S baker d/c Bladder scans every 2 days and straight cath as needed. Flomax 0.8mg PEG daily Proscar 5mg PO daily Bethanecol 20 mg PO TID monitor I's and O's Hypernatremia 144 on 12/01 Stable Continue free water flushes of 100 cc Q8h Continue to monitor weekly labs Failure to thrive feeds on hold 100cc of free water flush q8H Measure weight weekly. Continue to monitor Respiratory failure trach collar in place - normal resp pattern, thick secretions CAD (coronary artery disease) s/p cardiac stents on 06/13/15 ASA 81mg via PEG daily Coreg 3.125mg PEG BID Seizures Keppra 500mg PEG BID for seizure prophylaxis Lower extremity edema Lasix via PEG as needed. Administered. Prophylactic measure Pepcid 20 mg PEG BID Lovenox 40mg SC daily Sennosides 8.6mg PEG daily SCDs and offloading boots Continue to monitor medication administrations and clinical presentation Case Discussed with Dr. Ignacia Ramon PGY1 <Nathaniel Beth - Last Filed: 12/24/16 12:13> Objective - Vital Signs/Intake and Output Vital Signs (last 24 hours): Temp Pulse Resp BP Pulse Ox 98.6 F 92 H 20 126/93 H 97 12/24/16 07:50 12/24/16 07:50 12/24/16 07:50 12/24/16 07:50 12/24/16 07:50 Intake and Output: 12/24/16 12/24/16 06:59 18:59 Intake Total 1660 Output Total 1500 Balance 160 - Medications Medications: Current Medications Aspirin (Aspirin Chewable) 81 mg PEG DAILY [facility] Last Admin: 12/24/16 11:02 Dose: 81 mg Bethanechol Chloride (Urecholine) 20 mg PEG TID [facility] Last Admin: 12/24/16 11:03 Dose: 20 mg Carvedilol (Coreg) 3.125 mg PEG BID [facility] Last Admin: 12/24/16 11:02 Dose: 3.125 mg Clopidogrel Bisulfate (Plavix) 75 mg PO DAILY [facility] Last Admin: 12/24/16 11:02 Dose: 75 mg Enoxaparin Sodium (Lovenox) 40 mg SC DAILY [facility] Last Admin: 12/24/16 11:03 Dose: 40 mg Famotidine (Pepcid) 20 mg PEG BID [facility] Last Admin: 12/24/16 11:03 Dose: 20 mg Finasteride (Proscar) 5 mg PEG DAILY [facility] Last Admin: 12/24/16 11:02 Dose: 5 mg Levetiracetam (Keppra) 500 mg PEG BID [facility] Last Admin: 12/24/16 11:02 Dose: 500 mg Tamsulosin HCl (Flomax) 0.8 mg PEG DAILY [facility] Last Admin: 12/24/16 11:02 Dose: 0.8 mg - Labs Labs: 12/21/16 07:39 12/21/16 07:39 PT 10.6 SECONDS (9.7-12.2) 11/24/15 14:10 INR 1.0 11/24/15 14:10 APTT 25 SECONDS (21-34) 11/24/15 14:10 Attending/Attestation - Attestation I have personally seen and examined this patient.: Yes I have fully participated in the care of the patient.: Yes I have reviewed all pertinent clinical information, including history, physical exam and plan: Yes Notes (Text): Anoxic encephalopathy - Chronic, at baseline, no improvement; CAD s/p stent - continue ASA and plavix; coreg; Urinary retention - On bethanecol; baker inserted after bladder scan showed 250 cc; will d/c baker and re-assess; Sacral decubitus ulcer stage I - continue frequent repositioning and protective ointment;
[2016-12-03] MEDS: Enoxaparin 40 mg Syringe SC SCH (11:20)
[2016-12-03] MEDS: levETIRAcetam 100 mg/ml (5ml) Oral Syringe PEG SCH ×2 (11:21→21:42)
--- NOTE | 2016-12-03 12:10 | RAD ---
HISTORY: abdominal distension COMPARISON: 11/24/2016 FINDINGS: BOWEL: Unremarkable abdominal bowel gas pattern. PEG balloon positioned centrally over upper abdomen. The associated catheter is not visualized on this examination. Please correlate. Unchanged. BONES: Normal. OTHER FINDINGS: None. IMPRESSION: No evidence of bowel obstruction. PEG balloon identified without evidence of associated catheter. Please correlate. .
--- NOTE | 2016-12-04 09:59 | CP.PCM.PN ---
<Al Khalil - Last Filed: 12/04/16 14:52> Subjective - Date & Time of Evaluation Date of Evaluation: 12/04/16 Time of Evaluation: 09:59 - Subjective Subjective: Internal Medicine Progress Note Dr. Beth Patient seen adn examined at bedside. No acute distress. No acute events overnight. Nursing staff reports no issues. Patient appears at baseline. Abdominal distension has resolved. No interval change from prior examination. Objective - Vital Signs/Intake and Output Vital Signs (last 24 hours): Temp Pulse Resp BP Pulse Ox 98.7 F 81 18 105/60 96 12/04/16 08:00 12/04/16 08:00 12/04/16 08:00 12/04/16 08:00 12/04/16 08:00 Intake and Output: 12/04/16 12/04/16 06:59 18:59 Intake Total 1300 Output Total 675 Balance 625 - Medications Medications: Current Medications Aspirin (Aspirin Chewable) 81 mg PEG DAILY [facility] Last Admin: 12/03/16 11:19 Dose: 81 mg Bethanechol Chloride (Urecholine) 20 mg PEG TID [facility] Last Admin: 12/03/16 18:00 Dose: 20 mg Carvedilol (Coreg) 3.125 mg PEG BID [facility] Last Admin: 12/03/16 18:00 Dose: 3.125 mg Enoxaparin Sodium (Lovenox) 40 mg SC DAILY [facility] Last Admin: 12/03/16 11:20 Dose: 40 mg Famotidine (Pepcid) 20 mg PEG BID [facility] Last Admin: 12/03/16 18:00 Dose: 20 mg Finasteride (Proscar) 5 mg PEG DAILY [facility] Last Admin: 12/03/16 10:00 Dose: 5 mg Lactulose (Enulose) 20 gm PEG HS [facility] Last Admin: 12/03/16 21:44 Dose: 20 gm Levetiracetam (Keppra) 500 mg PEG BID [facility] Last Admin: 12/03/16 21:42 Dose: 500 mg Sennosides (Senokot Tab) 8.6 mg PEG DAILY [facility] Last Admin: 12/03/16 10:00 Dose: 8.6 mg Tamsulosin HCl (Flomax) 0.8 mg PEG DAILY [facility] Last Admin: 12/03/16 11:20 Dose: 0.8 mg - Labs Labs: 12/01/16 08:25 12/01/16 08:25 PT 10.6 SECONDS (9.7-12.2) 11/24/15 14:10 INR 1.0 11/24/15 14:10 APTT 25 SECONDS (21-34) 11/24/15 14:10 - Constitutional Appears: Non-toxic, Chronically Ill - Head Exam Head Exam: ATRAUMATIC, NORMAL INSPECTION, NORMOCEPHALIC - Eye Exam Eye Exam: EOMI - ENT Exam Additional comments: trach collar in place. no erythema no exudate - Respiratory Exam Respiratory Exam: Clear to Ausculation Bilateral, NORMAL BREATHING PATTERN. absent: Accessory Muscle Use, Rales, Rhonchi, Wheezes, Respiratory Distress, Stridor - Cardiovascular Exam Cardiovascular Exam: REGULAR RHYTHM, RRR, +S1, +S2. absent: Diastolic murmur, Murmur - GI/Abdominal Exam GI & Abdominal Exam: Soft, Normal Bowel Sounds. absent: Distended, Firm, Guarding, Rigid, Tenderness - Extremities Exam Extremities Exam: Normal Capillary Refill, Normal Inspection. absent: Joint Swelling, Pedal Edema - Skin Skin Exam: Dry, Intact, Normal Color, Warm Assessment and Plan - Assessment and Plan (Free Text) Assessment: 64 yo M with unknown pmhx who was found unresponsive in driveway s/p cardiac arrest and anoxic encephalopathy Plan: Anoxic encephalopathy No acute changes, continue weekly labs on Mondays Turn Q2 hours- Continue to monitor Restart Isosource feeds through PEG @ reduced rate 60cc/hr per Nutrition recommendations Continue trach suctioning as needed Pending fdc facility placement UTI 12/03/16 Urine Culture- Positive for gram negative rods (speciation pending) CBM/CMP ordered for tomorrow holding treatment at this time Abdominal Distention- resolved Abdominal x-ray 12/03/16: no evidence of bowel obstruction resume feeds Start Senna Syrup 5mL PEG daily Start Lactulose PEG HS Bladder scan every 2 days starting 12/01/16 Abdomen X-RAY: Normal. No obstruction. No free air. PEG tube remains in satisfactory position. Lactulose 20 gm PEG once Hypoalbuminemia Resolved Prostat 30mL 1x / day Sacral Ulcers Resolved 11/21: Apply ointment daily to sacral area to prevent ulceration 11/18: Stage 1 ulcer- healed. Apply ointment daily to sacral area to prevent ulceration 11/16: c/w wound care management and turn Q2 10/30: No acute changes, healing linear 5 cm fissure, continue to turn patient Q2H. 10/29: Healing linear 5 cm fissure with area of erythema Nursing to use barrier to prevent further progression of abrasion Continue to monitor with skin checks and Q2H turning Urinary Retention f/u repeat urine C&S baker d/c Bladder scans every 2 days and straight cath as needed. Flomax 0.8mg PEG daily Proscar 5mg PO daily Bethanecol 20 mg PO TID monitor I's and O's Hypernatremia 144 on 12/01 Stable Continue free water flushes of 100 cc Q8h Continue to monitor weekly labs Failure to thrive feeds on hold 100cc of free water flush q8H Measure weight weekly. Continue to monitor Respiratory failure trach collar in place - normal resp pattern, thick secretions CAD (coronary artery disease) s/p cardiac stents on 06/13/15 ASA 81mg via PEG daily Coreg 3.125mg PEG BID Seizures Keppra 500mg PEG BID for seizure prophylaxis Lower extremity edema Lasix via PEG as needed. Administered. Prophylactic measure Pepcid 20 mg PEG BID Lovenox 40mg SC daily Sennosides 8.6mg PEG daily SCDs and offloading boots Continue to monitor medication administrations and clinical presentation Jeb Khalil PGY1 [id number] <Nathaniel Beth - Last Filed: 12/24/16 12:09> Objective - Vital Signs/Intake and Output Vital Signs (last 24 hours): Temp Pulse Resp BP Pulse Ox 98.6 F 92 H 20 126/93 H 97 12/24/16 07:50 12/24/16 07:50 12/24/16 07:50 12/24/16 07:50 12/24/16 07:50 Intake and Output: 12/24/16 12/24/16 06:59 18:59 Intake Total 1660 Output Total 1500 Balance 160 - Medications Medications: Current Medications Aspirin (Aspirin Chewable) 81 mg PEG DAILY [facility] Last Admin: 12/24/16 11:02 Dose: 81 mg Bethanechol Chloride (Urecholine) 20 mg PEG TID [facility] Last Admin: 12/24/16 11:03 Dose: 20 mg Carvedilol (Coreg) 3.125 mg PEG BID [facility] Last Admin: 12/24/16 11:02 Dose: 3.125 mg Clopidogrel Bisulfate (Plavix) 75 mg PO DAILY [facility] Last Admin: 12/24/16 11:02 Dose: 75 mg Enoxaparin Sodium (Lovenox) 40 mg SC DAILY [facility] Last Admin: 12/24/16 11:03 Dose: 40 mg Famotidine (Pepcid) 20 mg PEG BID [facility] Last Admin: 12/24/16 11:03 Dose: 20 mg Finasteride (Proscar) 5 mg PEG DAILY [facility] Last Admin: 12/24/16 11:02 Dose: 5 mg Levetiracetam (Keppra) 500 mg PEG BID [facility] Last Admin: 12/24/16 11:02 Dose: 500 mg Tamsulosin HCl (Flomax) 0.8 mg PEG DAILY [facility] Last Admin: 12/24/16 11:02 Dose: 0.8 mg - Labs Labs: 12/21/16 07:39 12/21/16 07:39 PT 10.6 SECONDS (9.7-12.2) 11/24/15 14:10 INR 1.0 11/24/15 14:10 APTT 25 SECONDS (21-34) 11/24/15 14:10 Attending/Attestation - Attestation I have personally seen and examined this patient.: Yes I have fully participated in the care of the patient.: Yes I have reviewed all pertinent clinical information, including history, physical exam and plan: Yes Notes (Text): Anoxic encephalopathy - Chronic, at baseline, no improvement; CAD s/p stent - continue ASA and plavix; coreg; Urinary retention - On bethanecol; f/u urine culture; Sacral decubitus ulcer stage I - continue frequent repositioning and protective ointment;
[2016-12-04] MEDS: Enoxaparin 40 mg Syringe SC SCH (11:39)
[2016-12-04] MEDS: levETIRAcetam 100 mg/ml (5ml) Oral Syringe PEG SCH ×2 (11:39→18:44)
--- NOTE | 2016-12-05 07:44 | CP.PCM.PN ---
Addendum entered and electronically signed by Mee Luciano MDS 12/05/16 14 :07: Urine Culture positive for Klebsiella pneumonia. Start Ciprofloxacin 400 mg IVPB Q12H x 7 days Original Note: <Mee Luciano - Last Filed: 12/05/16 07:41> Subjective - Date & Time of Evaluation Date of Evaluation: 12/05/16 Time of Evaluation: 07:41 - Subjective Subjective: Patient examined at bedside. No acute distress. No acute events overnight. Nursing staff reports no issues. Patient appears at baseline. Abdominal distension has resolved. No interval change from prior examination. Objective - Vital Signs/Intake and Output Vital Signs (last 24 hours): Temp Pulse Resp BP Pulse Ox 98.5 F 70 20 129/74 99 12/05/16 00:00 12/05/16 00:00 12/05/16 00:00 12/05/16 00:00 12/05/16 00:00 Intake and Output: 12/05/16 12/05/16 06:59 18:59 Intake Total 580 Output Total 250 Balance 330 - Medications Medications: Current Medications Aspirin (Aspirin Chewable) 81 mg PEG DAILY [facility] Last Admin: 12/04/16 11:38 Dose: 81 mg Bethanechol Chloride (Urecholine) 20 mg PEG TID [facility] Last Admin: 12/04/16 18:39 Dose: 20 mg Carvedilol (Coreg) 3.125 mg PEG BID [facility] Last Admin: 12/04/16 18:40 Dose: 3.125 mg Enoxaparin Sodium (Lovenox) 40 mg SC DAILY [facility] Last Admin: 12/04/16 11:39 Dose: 40 mg Famotidine (Pepcid) 20 mg PEG BID [facility] Last Admin: 12/04/16 18:40 Dose: 20 mg Finasteride (Proscar) 5 mg PEG DAILY [facility] Last Admin: 12/04/16 11:40 Dose: 5 mg Lactulose (Enulose) 20 gm PEG HS [facility] Last Admin: 12/04/16 22:00 Dose: 20 gm Levetiracetam (Keppra) 500 mg PEG BID [facility] Last Admin: 12/04/16 18:44 Dose: 500 mg Sennosides (Senokot Tab) 8.6 mg PEG DAILY [facility] Last Admin: 12/04/16 11:39 Dose: 8.6 mg Tamsulosin HCl (Flomax) 0.8 mg PEG DAILY [facility] Last Admin: 12/04/16 11:42 Dose: 0.8 mg - Labs Labs: 12/01/16 08:25 12/01/16 08:25 PT 10.6 SECONDS (9.7-12.2) 11/24/15 14:10 INR 1.0 11/24/15 14:10 APTT 25 SECONDS (21-34) 11/24/15 14:10 - Constitutional Appears: Non-toxic, Chronically Ill - Head Exam Head Exam: ATRAUMATIC, NORMAL INSPECTION, NORMOCEPHALIC - Eye Exam Eye Exam: PERRL - Neck Exam Additional comments: trach collar in place. no erythema no exudate - Respiratory Exam Respiratory Exam: Clear to Ausculation Bilateral, NORMAL BREATHING PATTERN. absent: Rhonchi, Wheezes, Stridor - Cardiovascular Exam Cardiovascular Exam: +S1, +S2. absent: Murmur - GI/Abdominal Exam GI & Abdominal Exam: Soft, Normal Bowel Sounds. absent: Distended - Extremities Exam Extremities Exam: Normal Capillary Refill - Neurological Exam Neurological Exam: Awake - Psychiatric Exam Psychiatric exam: Flat Affect - Skin Skin Exam: Intact, Normal Color, Warm Assessment and Plan - Assessment and Plan (Free Text) Assessment: Continue current management and follow-up weekly labs. Anoxic encephalopathy No acute changes, continue weekly labs on Mondays Turn Q2 hours- Continue to monitor Restart Isosource feeds through PEG @ reduced rate 60cc/hr per Nutrition recommendations Continue trach suctioning as needed Pending prison facility placement UTI 12/03/16 Urine Culture- Positive for gram negative rods (speciation pending) CBM/CMP ordered for tomorrow holding treatment at this time Abdominal Distention- resolved Abdominal x-ray 12/03/16: no evidence of bowel obstruction resume feeds Start Senna Syrup 5mL PEG daily Start Lactulose PEG HS Bladder scan every 2 days starting 12/01/16 Abdomen X-RAY: Normal. No obstruction. No free air. PEG tube remains in satisfactory position. Lactulose 20 gm PEG once Hypoalbuminemia Resolved Prostat 30mL 1x / day Sacral Ulcers Resolved 11/21: Apply ointment daily to sacral area to prevent ulceration 11/18: Stage 1 ulcer- healed. Apply ointment daily to sacral area to prevent ulceration 11/16: c/w wound care management and turn Q2 10/30: No acute changes, healing linear 5 cm fissure, continue to turn patient Q2H. 10/29: Healing linear 5 cm fissure with area of erythema Nursing to use barrier to prevent further progression of abrasion Continue to monitor with skin checks and Q2H turning Urinary Retention f/u repeat urine C&S baker d/c Bladder scans every 2 days and straight cath as needed. Flomax 0.8mg PEG daily Proscar 5mg PO daily Bethanecol 20 mg PO TID monitor I's and O's Hypernatremia 144 on 12/01 Stable Continue free water flushes of 100 cc Q8h Continue to monitor weekly labs Failure to thrive feeds on hold 100cc of free water flush q8H Measure weight weekly. Continue to monitor Respiratory failure trach collar in place - normal resp pattern, thick secretions CAD (coronary artery disease) s/p cardiac stents on 06/13/15 ASA 81mg via PEG daily Coreg 3.125mg PEG BID Seizures Keppra 500mg PEG BID for seizure prophylaxis Lower extremity edema Lasix via PEG as needed. Administered. Prophylactic measure Pepcid 20 mg PEG BID Lovenox 40mg SC daily Sennosides 8.6mg PEG daily SCDs and offloading boots Continue to monitor medication administrations and clinical presentation <Nathaniel Beth - Last Filed: 12/24/16 12:07> Objective - Vital Signs/Intake and Output Vital Signs (last 24 hours): Temp Pulse Resp BP Pulse Ox 98.6 F 92 H 20 126/93 H 97 12/24/16 07:50 12/24/16 07:50 12/24/16 07:50 12/24/16 07:50 12/24/16 07:50 Intake and Output: 12/24/16 12/24/16 06:59 18:59 Intake Total 1660 Output Total 1500 Balance 160 - Medications Medications: Current Medications Aspirin (Aspirin Chewable) 81 mg PEG DAILY [facility] Last Admin: 12/24/16 11:02 Dose: 81 mg Bethanechol Chloride (Urecholine) 20 mg PEG TID [facility] Last Admin: 12/24/16 11:03 Dose: 20 mg Carvedilol (Coreg) 3.125 mg PEG BID [facility] Last Admin: 12/24/16 11:02 Dose: 3.125 mg Clopidogrel Bisulfate (Plavix) 75 mg PO DAILY [facility] Last Admin: 12/24/16 11:02 Dose: 75 mg Enoxaparin Sodium (Lovenox) 40 mg SC DAILY [facility] Last Admin: 12/24/16 11:03 Dose: 40 mg Famotidine (Pepcid) 20 mg PEG BID [facility] Last Admin: 12/24/16 11:03 Dose: 20 mg Finasteride (Proscar) 5 mg PEG DAILY [facility] Last Admin: 12/24/16 11:02 Dose: 5 mg Levetiracetam (Keppra) 500 mg PEG BID [facility] Last Admin: 12/24/16 11:02 Dose: 500 mg Tamsulosin HCl (Flomax) 0.8 mg PEG DAILY [facility] Last Admin: 12/24/16 11:02 Dose: 0.8 mg - Labs Labs: 12/21/16 07:39 12/21/16 07:39 PT 10.6 SECONDS (9.7-12.2) 11/24/15 14:10 INR 1.0 11/24/15 14:10 APTT 25 SECONDS (21-34) 11/24/15 14:10 Attending/Attestation - Attestation I have personally seen and examined this patient.: Yes I have fully participated in the care of the patient.: Yes I have reviewed all pertinent clinical information, including history, physical exam and plan: Yes Notes (Text): Urine culture obtained after urinary retention; growing Klebsiella, being started on cipro;
[2016-12-05 08:15] LABS: BASO % 0.4 % (0.0-2.0); EOS # 0.3 K/uL (0.0-0.7); EOS % 4.5 % (0.0-4.0); HEMOGLOBIN 12.1 g/dL (12.0-18.0); LYMPH # 1.9 K/uL (1.0-4.3); LYMPH % 26.5 % (20.0-40.0); MEAN CELL VOLUME 87.8 fL (80.0-94.0); MEAN CORPUSCULAR HEMOGLOBIN 28.6 pg (27.0-31.0); MEAN CORPUSCULAR HGB CONC 32.5 g/dL (33.0-37.0); MEAN PLATELET VOLUME 9.3 fL (7.2-11.7); MONO # 0.9 K/uL (0.0-0.8); MONO % 12.3 % (0.0-10.0); NEUT % 56.3 % (50.0-75.0); NRBC % 0.1 % (0.0-2.0); RBC 4.22 Mil/uL (4.40-5.90); RED CELL DISTRIBUTION WIDTH 15.7 % (11.5-14.5); WHITE BLOOD COUNT 7.1 K/uL (4.8-10.8)
[2016-12-05 08:21] LABS: ALBUMIN 3.3 g/dL (3.5-5.0)
[2016-12-05 08:23] LABS: GFR NON-AFRICAN AMERICAN > 60
[2016-12-05 08:24] LABS: ALB/GLOB RATIO 0.8 (1.0-2.1); ALT/SGPT 57 U/L (21-72); AST/SGOT 25 U/L (17-59); BLOOD UREA NITROGEN 19 mg/dL (9-20); CALCIUM 8.4 mg/dl (8.6-10.4)
[2016-12-05] MEDS: Enoxaparin 40 mg Syringe SC SCH (11:47)
[2016-12-05] MEDS: levETIRAcetam 100 mg/ml (5ml) Oral Syringe PEG SCH ×2 (11:48→17:31)
--- NOTE | 2016-12-06 00:29 | CP.PCM.PN ---
<Al Khalil - Last Filed: 12/06/16 00:26> Subjective - Date & Time of Evaluation Date of Evaluation: 12/06/16 Time of Evaluation: 00:27 - Subjective Subjective: Internal Medicine Progress Note Dr. Beth Patient seen adn examined at bedside. No acute distress. Nursing staff reports no issues. Patient appears at baseline. Abdominal distension has resolved. No interval change from prior examination. Objective - Vital Signs/Intake and Output Vital Signs (last 24 hours): Temp Pulse Resp BP Pulse Ox 98.3 F 66 20 123/79 100 12/05/16 15:00 12/05/16 15:00 12/05/16 15:00 12/05/16 15:00 12/05/16 15:00 Intake and Output: 12/05/16 12/06/16 18:59 06:59 Intake Total 1660 Output Total 850 Balance 810 - Medications Medications: Current Medications Aspirin (Aspirin Chewable) 81 mg PEG DAILY [facility] Last Admin: 12/05/16 11:47 Dose: 81 mg Bethanechol Chloride (Urecholine) 20 mg PEG TID [facility] Last Admin: 12/05/16 17:31 Dose: 20 mg Carvedilol (Coreg) 3.125 mg PEG BID [facility] Last Admin: 12/05/16 17:31 Dose: 3.125 mg Ciprofloxacin (Cipro) 250 mg PEG BID [facility] Stop: 12/12/16 18:00 Last Admin: 12/05/16 20:00 Dose: 250 mg Enoxaparin Sodium (Lovenox) 40 mg SC DAILY [facility] Last Admin: 12/05/16 11:47 Dose: 40 mg Famotidine (Pepcid) 20 mg PEG BID [facility] Last Admin: 12/05/16 17:31 Dose: 20 mg Finasteride (Proscar) 5 mg PEG DAILY [facility] Last Admin: 12/05/16 11:48 Dose: 5 mg Lactulose (Enulose) 20 gm PEG HS [facility] Last Admin: 12/05/16 21:33 Dose: 20 gm Levetiracetam (Keppra) 500 mg PEG BID [facility] Last Admin: 12/05/16 17:31 Dose: 500 mg Sennosides (Senokot Tab) 8.6 mg PEG DAILY [facility] Last Admin: 12/05/16 12:05 Dose: 8.6 mg Tamsulosin HCl (Flomax) 0.8 mg PEG DAILY [facility] Last Admin: 12/05/16 11:48 Dose: 0.8 mg - Labs Labs: 12/05/16 07:58 12/05/16 07:58 PT 10.6 SECONDS (9.7-12.2) 11/24/15 14:10 INR 1.0 11/24/15 14:10 APTT 25 SECONDS (21-34) 11/24/15 14:10 - Constitutional Appears: Well, No Acute Distress - Head Exam Head Exam: ATRAUMATIC, NORMAL INSPECTION, NORMOCEPHALIC Additional comments: trach collar in place - Neck Exam Additional comments: trach collar in place - Respiratory Exam Respiratory Exam: NORMAL BREATHING PATTERN. absent: Rales, Wheezes, Respiratory Distress, Stridor - Cardiovascular Exam Cardiovascular Exam: REGULAR RHYTHM, RRR, +S1, +S2. absent: Diastolic murmur, Murmur - GI/Abdominal Exam GI & Abdominal Exam: Soft, Normal Bowel Sounds. absent: Distended, Tenderness - Extremities Exam Extremities Exam: Normal Capillary Refill. absent: Joint Swelling, Pedal Edema - Neurological Exam Neurological Exam: Awake - Skin Skin Exam: Dry, Intact, Normal Color, Warm Assessment and Plan - Assessment and Plan (Free Text) Plan: Continue current management and follow-up weekly labs. Anoxic encephalopathy No acute changes, continue weekly labs on Mondays Turn Q2 hours- Continue to monitor Restart Isosource feeds through PEG @ reduced rate 60cc/hr per Nutrition recommendations Continue trach suctioning as needed Pending longterm facility placement UTI 12/03/16 Urine Culture- Positive for gram negative rods (speciation pending) SIRS 0/4 ciprofloxacin 250mg PEG BID Abdominal Distention- resolved Abdominal x-ray 12/03/16: no evidence of bowel obstruction resume feeds Start Senna Syrup 5mL PEG daily Start Lactulose PEG HS Bladder scan every 2 days starting 12/01/16 Abdomen X-RAY: Normal. No obstruction. No free air. PEG tube remains in satisfactory position. Lactulose 20 gm PEG once Hypoalbuminemia Resolved Prostat 30mL 1x / day Sacral Ulcers Resolved 11/21: Apply ointment daily to sacral area to prevent ulceration 11/18: Stage 1 ulcer- healed. Apply ointment daily to sacral area to prevent ulceration 11/16: c/w wound care management and turn Q2 10/30: No acute changes, healing linear 5 cm fissure, continue to turn patient Q2H. 10/29: Healing linear 5 cm fissure with area of erythema Nursing to use barrier to prevent further progression of abrasion Continue to monitor with skin checks and Q2H turning Urinary Retention f/u repeat urine C&S baker d/c Bladder scans every 2 days and straight cath as needed. Flomax 0.8mg PEG daily Proscar 5mg PO daily Bethanecol 20 mg PO TID monitor I's and O's Hypernatremia 144 on 12/01 Stable Continue free water flushes of 100 cc Q8h Continue to monitor weekly labs Failure to thrive feeds on hold 100cc of free water flush q8H Measure weight weekly. Continue to monitor Respiratory failure trach collar in place - normal resp pattern, thick secretions CAD (coronary artery disease) s/p cardiac stents on 06/13/15 ASA 81mg via PEG daily Coreg 3.125mg PEG BID Seizures Keppra 500mg PEG BID for seizure prophylaxis Lower extremity edema Lasix via PEG as needed. Administered. Prophylactic measure Pepcid 20 mg PEG BID Lovenox 40mg SC daily Sennosides 8.6mg PEG daily SCDs and offloading boots Continue to monitor medication administrations and clinical presentation Jeb Khalil PGY1 <Nathaniel Beth - Last Filed: 12/07/16 10:26> Objective - Vital Signs/Intake and Output Vital Signs (last 24 hours): Temp Pulse Resp BP Pulse Ox 98.0 F 73 20 115/75 97 12/07/16 08:32 12/07/16 08:32 12/07/16 08:32 12/07/16 08:32 12/07/16 08:32 Intake and Output: 12/07/16 12/07/16 06:59 18:59 Intake Total 480 880 Output Total 400 200 Balance 80 680 - Medications Medications: Current Medications Aspirin (Aspirin Chewable) 81 mg PEG DAILY [facility] Last Admin: 12/06/16 11:52 Dose: 81 mg Bethanechol Chloride (Urecholine) 20 mg PEG TID [facility] Last Admin: 12/06/16 18:41 Dose: 20 mg Carvedilol (Coreg) 3.125 mg PEG BID [facility] Last Admin: 12/06/16 18:41 Dose: 3.125 mg Enoxaparin Sodium (Lovenox) 40 mg SC DAILY [facility] Last Admin: 12/06/16 11:54 Dose: 40 mg Famotidine (Pepcid) 20 mg PEG BID [facility] Last Admin: 12/06/16 18:41 Dose: 20 mg Finasteride (Proscar) 5 mg PEG DAILY [facility] Last Admin: 12/06/16 11:54 Dose: 5 mg Ciprofloxacin (Cipro 400mg/200ml Dsw) 200 mls @ 133 mls/hr IVPB Q12H [facility] Levetiracetam (Keppra) 500 mg PEG BID [facility] Last Admin: 12/06/16 18:41 Dose: 500 mg Tamsulosin HCl (Flomax) 0.8 mg PEG DAILY [facility] Last Admin: 12/06/16 11:52 Dose: 0.8 mg - Labs Labs: 12/05/16 07:58 12/05/16 07:58 PT 10.6 SECONDS (9.7-12.2) 11/24/15 14:10 INR 1.0 11/24/15 14:10 APTT 25 SECONDS (21-34) 11/24/15 14:10 Attending/Attestation - Attestation I have personally seen and examined this patient.: Yes I have fully participated in the care of the patient.: Yes I have reviewed all pertinent clinical information, including history, physical exam and plan: Yes Notes (Text): Patient admitted one and a half years ago s/p cardiac arrest, with ensuing anoxic encephalopathy, s/p trach and PEG; unable to be placed in longterm facility due to lack of insurance; Active issues are: UTI - Recurrent; presented after finding urinary retention; culture growing Kleb pneumo, sensitive to cipro; will give IV cipro 400 mg q12h to complete 7 days; voiding trial thereafter; Urinary retention - On flomax and finasteride; bethanacol was started after persistent retention (before current UTI) and found to be effective; continue same; CAD s/p WILLIE - On ASA, plavix and coreg 3.125 mg bid; continue; Sacral decutitus ulcer - Stage I ulcer present, about 2 cm in length at upper sacral crease; area frequently alternates between Stage I and healed ulcer; continue frequent turning, protective ointment; Hypernatremia - Resolved; on free water flushes q8h. Constipation - Resolved; lactulose and senna discontinued for now.
[2016-12-06] MEDS: levETIRAcetam 100 mg/ml (5ml) Oral Syringe PEG SCH ×2 (11:53→18:41)
[2016-12-06] MEDS: Enoxaparin 40 mg Syringe SC SCH (11:54)
--- NOTE | 2016-12-07 03:05 | CP.PCM.PN ---
<Al Khalil - Last Filed: 12/07/16 03:02> Subjective - Date & Time of Evaluation Date of Evaluation: 12/07/16 Time of Evaluation: 03:02 - Subjective Subjective: Internal Medicine Progress Note Dr. Beth Patient seen adn examined at bedside. No acute distress. Nursing staff reports no issues. Patient appears at baseline. Abdominal distension resolved. No interval change from prior examinations. Objective - Vital Signs/Intake and Output Vital Signs (last 24 hours): Temp Pulse Resp BP Pulse Ox 98.8 F 76 20 125/80 99 12/07/16 00:00 12/07/16 00:00 12/07/16 00:00 12/07/16 00:00 12/07/16 00:00 Intake and Output: 12/06/16 12/07/16 18:59 06:59 Intake Total 680 480 Output Total 850 400 Balance -170 80 - Medications Medications: Current Medications Aspirin (Aspirin Chewable) 81 mg PEG DAILY [facility] Last Admin: 12/06/16 11:52 Dose: 81 mg Bethanechol Chloride (Urecholine) 20 mg PEG TID [facility] Last Admin: 12/06/16 18:41 Dose: 20 mg Carvedilol (Coreg) 3.125 mg PEG BID [facility] Last Admin: 12/06/16 18:41 Dose: 3.125 mg Ciprofloxacin (Cipro) 500 mg PEG Q12 [facility] Stop: 12/12/16 18:00 Last Admin: 12/06/16 22:48 Dose: 500 mg Enoxaparin Sodium (Lovenox) 40 mg SC DAILY [facility] Last Admin: 12/06/16 11:54 Dose: 40 mg Famotidine (Pepcid) 20 mg PEG BID [facility] Last Admin: 12/06/16 18:41 Dose: 20 mg Finasteride (Proscar) 5 mg PEG DAILY [facility] Last Admin: 12/06/16 11:54 Dose: 5 mg Levetiracetam (Keppra) 500 mg PEG BID [facility] Last Admin: 12/06/16 18:41 Dose: 500 mg Tamsulosin HCl (Flomax) 0.8 mg PEG DAILY [facility] Last Admin: 12/06/16 11:52 Dose: 0.8 mg - Labs Labs: 12/05/16 07:58 12/05/16 07:58 PT 10.6 SECONDS (9.7-12.2) 11/24/15 14:10 INR 1.0 11/24/15 14:10 APTT 25 SECONDS (21-34) 11/24/15 14:10 - Additional Findings Additional findings: - Constitutional Appears: Well, No Acute Distress - Head Exam Head Exam: ATRAUMATIC, NORMAL INSPECTION, NORMOCEPHALIC Additional comments: trach collar in place - Neck Exam Additional comments: trach collar in place - Respiratory Exam Respiratory Exam: NORMAL BREATHING PATTERN. absent: Rales, Wheezes, Respiratory Distress, Stridor - Cardiovascular Exam Cardiovascular Exam: REGULAR RHYTHM, RRR, +S1, +S2. absent: Diastolic murmur, Murmur - GI/Abdominal Exam GI & Abdominal Exam: Soft, Normal Bowel Sounds. absent: Distended, Tenderness - Extremities Exam Extremities Exam: Normal Capillary Refill. absent: Joint Swelling, Pedal Edema - Neurological Exam Neurological Exam: Awake - Skin Skin Exam: Dry, Intact, Normal Color, Warm Assessment and Plan - Assessment and Plan (Free Text) Plan: Plan: Continue current management and follow-up weekly labs. Anoxic encephalopathy No acute changes, continue weekly labs on Mondays Turn Q2 hours- Continue to monitor Restart Isosource feeds through PEG @ reduced rate 60cc/hr per Nutrition recommendations Continue trach suctioning as needed Pending skilled nursing facility placement UTI 12/03/16 Urine Culture- Positive for gram negative rods (speciation pending) SIRS 0/ ciprofloxacin 250mg PEG BID Abdominal Distention- resolved Abdominal x-ray 12/03/16: no evidence of bowel obstruction resume feeds Start Senna Syrup 5mL PEG daily Start Lactulose PEG HS Bladder scan every 2 days starting 12/01/16 Abdomen X-RAY: Normal. No obstruction. No free air. PEG tube remains in satisfactory position. Lactulose 20 gm PEG once (11/27/16) Hypoalbuminemia Resolved Prostat 30mL 1x / day Sacral Ulcers Resolved 11/21: Apply ointment daily to sacral area to prevent ulceration 11/18: Stage 1 ulcer- healed. Apply ointment daily to sacral area to prevent ulceration 11/16: c/w wound care management and turn Q2 10/30: No acute changes, healing linear 5 cm fissure, continue to turn patient Q2H. 10/29: Healing linear 5 cm fissure with area of erythema Nursing to use barrier to prevent further progression of abrasion Continue to monitor with skin checks and Q2H turning Urinary Retention f/u repeat urine C&S baker d/c Bladder scans every 2 days and straight cath as needed. Flomax 0.8mg PEG daily Proscar 5mg PO daily Bethanecol 20 mg PO TID monitor I's and O's Hypernatremia 144 on 12/01 Stable Continue free water flushes of 100 cc Q8h Continue to monitor weekly labs Failure to thrive feeds on hold 100cc of free water flush q8H Measure weight weekly. Continue to monitor Respiratory failure trach collar in place - normal resp pattern, thick secretions CAD (coronary artery disease) s/p cardiac stents on 06/13/15 ASA 81mg via PEG daily Coreg 3.125mg PEG BID Seizures Keppra 500mg PEG BID for seizure prophylaxis Lower extremity edema Lasix via PEG as needed. Administered. Prophylactic measure Pepcid 20 mg PEG BID Lovenox 40mg SC daily Sennosides 8.6mg PEG daily SCDs and offloading boots Continue to monitor medication administrations and clinical presentation Jeb Khalil PGY1 <Nathaniel Beth - Last Filed: 12/07/16 21:21> Objective - Vital Signs/Intake and Output Vital Signs (last 24 hours): Temp Pulse Resp BP Pulse Ox 98.5 F 73 20 118/75 100 12/07/16 14:00 12/07/16 14:00 12/07/16 14:00 12/07/16 14:00 12/07/16 14:00 Intake and Output: 12/07/16 12/08/16 18:59 06:59 Intake Total 1360 Output Total 500 Balance 860 - Medications Medications: Current Medications Aspirin (Aspirin Chewable) 81 mg PEG DAILY [facility] Last Admin: 12/07/16 11:03 Dose: 81 mg Bethanechol Chloride (Urecholine) 20 mg PEG TID [facility] Last Admin: 12/07/16 18:41 Dose: 20 mg Carvedilol (Coreg) 3.125 mg PEG BID [facility] Last Admin: 12/07/16 18:40 Dose: 3.125 mg Ciprofloxacin (Cipro) 500 mg PEG Q12H [facility] Enoxaparin Sodium (Lovenox) 40 mg SC DAILY [facility] Last Admin: 12/07/16 11:04 Dose: 40 mg Famotidine (Pepcid) 20 mg PEG BID [facility] Last Admin: 12/07/16 18:40 Dose: 20 mg Finasteride (Proscar) 5 mg PEG DAILY [facility] Last Admin: 12/07/16 11:05 Dose: 5 mg Levetiracetam (Keppra) 500 mg PEG BID [facility] Last Admin: 12/07/16 18:41 Dose: 500 mg Tamsulosin HCl (Flomax) 0.8 mg PEG DAILY [facility] Last Admin: 12/07/16 11:03 Dose: 0.8 mg - Labs Labs: 12/05/16 07:58 12/05/16 07:58 PT 10.6 SECONDS (9.7-12.2) 11/24/15 14:10 INR 1.0 11/24/15 14:10 APTT 25 SECONDS (21-34) 11/24/15 14:10 Attending/Attestation - Attestation I have personally seen and examined this patient.: Yes I have fully participated in the care of the patient.: Yes I have reviewed all pertinent clinical information, including history, physical exam and plan: Yes Notes (Text): Patient admitted one and a half years ago s/p cardiac arrest, with ensuing anoxic encephalopathy, s/p trach and PEG; unable to be placed in skilled nursing facility due to lack of insurance; Active issues are: UTI - Recurrent; presented after finding urinary retention; culture growing Kleb pneumo, sensitive to cipro; started on PO cipro 500 mg q12h to complete 7 days (PO due to difficulty maintaining peripheral IV line); voiding trial thereafter; Urinary retention - On flomax and finasteride; bethanacol was started after persistent retention (before current UTI) and found to be effective; continue same; CAD s/p WILLIE - On ASA, plavix and coreg 3.125 mg bid; continue; Sacral decutitus ulcer - Stage I ulcer present, about 2 cm in length at upper sacral crease; area frequently alternates between Stage I and healed ulcer; continue frequent turning, protective ointment; Hypernatremia - Resolved; on free water flushes q8h. Constipation - Resolved; lactulose and senna discontinued for now. 12/07/16 21:18
[2016-12-07] MEDS: levETIRAcetam 100 mg/ml (5ml) Oral Syringe PEG SCH ×2 (11:04→18:41)
[2016-12-07] MEDS: Enoxaparin 40 mg Syringe SC SCH (11:04)
[2016-12-08 07:42] LABS: BASO % 0.5 % (0.0-2.0); EOS # 0.4 K/uL (0.0-0.7); EOS % 4.4 % (0.0-4.0); LYMPH # 2.3 K/uL (1.0-4.3); LYMPH % 25.1 % (20.0-40.0); MEAN CELL VOLUME 86.9 fL (80.0-94.0); MEAN CORPUSCULAR HEMOGLOBIN 28.6 pg (27.0-31.0); MEAN CORPUSCULAR HGB CONC 32.9 g/dL (33.0-37.0); MEAN PLATELET VOLUME 9.3 fL (7.2-11.7); MONO # 0.9 K/uL (0.0-0.8); NEUT # 5.4 K/uL (1.8-7.0); NRBC % 0.1 % (0.0-2.0); RBC 4.21 Mil/uL (4.40-5.90); RED CELL DISTRIBUTION WIDTH 15.5 % (11.5-14.5)
[2016-12-08 07:49] LABS: ALBUMIN 3.3 g/dL (3.5-5.0)
[2016-12-08 07:51] LABS: GFR NON-AFRICAN AMERICAN > 60
[2016-12-08 07:52] LABS: ALB/GLOB RATIO 0.8 (1.0-2.1); ALT/SGPT 55 U/L (21-72); AST/SGOT 20 U/L (17-59); BLOOD UREA NITROGEN 18 mg/dL (9-20); CALCIUM 8.6 mg/dl (8.6-10.4)
[2016-12-08] MEDS: Enoxaparin 40 mg Syringe SC SCH (10:43)
[2016-12-08] MEDS: levETIRAcetam 100 mg/ml (5ml) Oral Syringe PEG SCH ×2 (10:44→17:00)
--- NOTE | 2016-12-08 14:06 | CP.PCM.PN ---
<Mariella Wagner - Last Filed: 12/08/16 14:03> Subjective - Date & Time of Evaluation Date of Evaluation: 12/08/16 Time of Evaluation: 08:20 - Subjective Subjective: PGY 2- Medicine Progress Note- Dr. Ying's service: Patient seen and examined at bedside. Patient's trach tube in place and being cleaned. Baker in place as well. No acute events overnight as per nursing. Patient is in no acute distress. Objective - Vital Signs/Intake and Output Vital Signs (last 24 hours): Temp Pulse Resp BP Pulse Ox 97.9 F 87 20 114/76 97 12/08/16 08:28 12/08/16 11:40 12/08/16 08:28 12/08/16 08:28 12/08/16 08:28 Intake and Output: 12/08/16 12/08/16 06:59 18:59 Intake Total 480 880 Output Total 325 300 Balance 155 580 - Medications Medications: Current Medications Aspirin (Aspirin Chewable) 81 mg PEG DAILY [facility] Last Admin: 12/08/16 10:44 Dose: 81 mg Bethanechol Chloride (Urecholine) 20 mg PEG TID [facility] Last Admin: 12/08/16 13:51 Dose: 20 mg Carvedilol (Coreg) 3.125 mg PEG BID [facility] Last Admin: 12/08/16 10:44 Dose: 3.125 mg Ciprofloxacin (Cipro) 500 mg PEG Q12H [facility] Last Admin: 12/08/16 10:47 Dose: 500 mg Enoxaparin Sodium (Lovenox) 40 mg SC DAILY [facility] Last Admin: 12/08/16 10:43 Dose: 40 mg Famotidine (Pepcid) 20 mg PEG BID [facility] Last Admin: 12/08/16 10:44 Dose: 20 mg Finasteride (Proscar) 5 mg PEG DAILY [facility] Last Admin: 12/08/16 10:44 Dose: 5 mg Levetiracetam (Keppra) 500 mg PEG BID [facility] Last Admin: 12/08/16 10:44 Dose: 500 mg Tamsulosin HCl (Flomax) 0.8 mg PEG DAILY [facility] Last Admin: 12/08/16 10:44 Dose: 0.8 mg - Labs Labs: 12/08/16 07:27 12/08/16 07:27 PT 10.6 SECONDS (9.7-12.2) 11/24/15 14:10 INR 1.0 11/24/15 14:10 APTT 25 SECONDS (21-34) 11/24/15 14:10 - Constitutional Appears: No Acute Distress - Head Exam Head Exam: NORMAL INSPECTION, NORMOCEPHALIC - Eye Exam Eye Exam: Normal appearance - ENT Exam ENT Exam: Mucous Membranes Moist - Neck Exam Additional comments: +trach tube in place - Respiratory Exam Respiratory Exam: Clear to Ausculation Bilateral, NORMAL BREATHING PATTERN - Cardiovascular Exam Cardiovascular Exam: REGULAR RHYTHM, +S1, +S2 - GI/Abdominal Exam GI & Abdominal Exam: Soft, Normal Bowel Sounds. absent: Distended, Tenderness - Exam Additional comments: +baker in place - Extremities Exam Extremities Exam: Normal Inspection. 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 No obstruction. No free air. PEG tube remains in satisfactory position. Lactulose 20 gm PEG once (11/27/16) Hypoalbuminemia Resolved Prostat 30mL 1x / day Sacral Ulcers Stage I ulcer present, about 2 cm in length at upper sacral crease; area frequently alternates between Stage I and healed ulcer. Continue frequent turning, protective ointment and skin checks. 11/21: Apply ointment daily to sacral area to prevent ulceration 11/18: Stage 1 ulcer- healed. Apply ointment daily to sacral area to prevent ulceration 11/16: c/w wound care management and turn Q2 10/30: No acute changes, healing linear 5 cm fissure, continue to turn patient Q2H. 10/29:Healing linear 5 cm fissure with area of erythema Urinary Retention f/u repeat urine C&S Baker in place Flomax 0.8mg PEG daily Proscar 5mg PO daily Bethanecol 20 mg PO TID- started after persistent retention (before current UTI ) and found to be effective. monitor I's and O's Hypernatremia 139 on 12/08/16 Stable Continue free water flushes of 100 cc Q8h Continue to monitor weekly labs Failure to thrive feeds on hold 100cc of free water flush q8H Measure weight weekly. Continue to monitor Respiratory failure trach collar in place - normal resp pattern, thick secretions CAD (coronary artery disease) s/p cardiac stents on 06/13/15 ASA 81mg via PEG daily Coreg 3.125mg PEG BID Seizures Keppra 500mg PEG BID for seizure prophylaxis Lower extremity edema Lasix via PEG as needed. Administered. Prophylactic measure Pepcid 20 mg PEG BID Lovenox 40mg SC daily Sennosides 8.6mg PEG daily SCDs and offloading boots Continue to monitor medication administrations and clinical presentation <Donnell Ying - Last Filed: 12/08/16 21:56> Objective - Vital Signs/Intake and Output Vital Signs (last 24 hours): Temp Pulse Resp BP Pulse Ox 98.6 F 68 20 96/63 L 98 12/08/16 16:00 12/08/16 16:00 12/08/16 16:00 12/08/16 16:00 12/08/16 16:00 Intake and Output: 12/08/16 12/09/16 18:59 06:59 Intake Total 1360 Output Total 600 Balance 760 - Medications Medications: Current Medications Aspirin (Aspirin Chewable) 81 mg PEG DAILY [facility] Last Admin: 12/08/16 10:44 Dose: 81 mg Bethanechol Chloride (Urecholine) 20 mg PEG TID [facility] Last Admin: 12/08/16 17:00 Dose: 20 mg Carvedilol (Coreg) 3.125 mg PEG BID [facility] Last Admin: 12/08/16 16:59 Dose: 3.125 mg Ciprofloxacin (Cipro) 500 mg PEG Q12H [facility] Last Admin: 12/08/16 21:34 Dose: 500 mg Clopidogrel Bisulfate (Plavix) 75 mg PO DAILY [facility] Last Admin: 12/08/16 16:59 Dose: 75 mg Famotidine (Pepcid) 20 mg PEG BID [facility] Last Admin: 12/08/16 16:59 Dose: 20 mg Finasteride (Proscar) 5 mg PEG DAILY [facility] Last Admin: 12/08/16 10:44 Dose: 5 mg Levetiracetam (Keppra) 500 mg PEG BID [facility] Last Admin: 12/08/16 17:00 Dose: 500 mg Tamsulosin HCl (Flomax) 0.8 mg PEG DAILY [facility] Last Admin: 12/08/16 10:44 Dose: 0.8 mg - Labs Labs: 12/08/16 07:27 12/08/16 07:27 PT 10.6 SECONDS (9.7-12.2) 11/24/15 14:10 INR 1.0 11/24/15 14:10 APTT 25 SECONDS (21-34) 11/24/15 14:10 Attending/Attestation - Attestation I have personally seen and examined this patient.: Yes I have fully participated in the care of the patient.: Yes I have reviewed all pertinent clinical information, including history, physical exam and plan: Yes Notes (Text): 12/08/16 21:55 patient was seen and examined at bedside with the resident we will continue current management Foleys catheter is in place Continue antibiotics for UTI
[2016-12-09] MEDS: levETIRAcetam 100 mg/ml (5ml) Oral Syringe PEG SCH ×2 (10:56→17:35)
--- NOTE | 2016-12-09 11:06 | CP.PCM.PN ---
Subjective - Date & Time of Evaluation Date of Evaluation: 12/09/16 Time of Evaluation: 09:30 Objective - Vital Signs/Intake and Output Vital Signs (last 24 hours): Temp Pulse Resp BP Pulse Ox 97.8 F 80 20 116/76 97 12/09/16 07:35 12/09/16 07:35 12/09/16 07:35 12/09/16 07:35 12/09/16 07:35 Intake and Output: 12/09/16 12/09/16 06:59 18:59 Intake Total 480 680 Output Total 700 300 Balance -220 380 - Medications Medications: Current Medications Aspirin (Aspirin Chewable) 81 mg PEG DAILY [facility] Last Admin: 12/09/16 10:56 Dose: 81 mg Bethanechol Chloride (Urecholine) 20 mg PEG TID [facility] Last Admin: 12/09/16 10:56 Dose: 20 mg Carvedilol (Coreg) 3.125 mg PEG BID [facility] Last Admin: 12/09/16 10:56 Dose: 3.125 mg Ciprofloxacin (Cipro) 500 mg PEG Q12H [facility] Last Admin: 12/09/16 10:55 Dose: 500 mg Clopidogrel Bisulfate (Plavix) 75 mg PO DAILY [facility] Last Admin: 12/09/16 10:56 Dose: 75 mg Famotidine (Pepcid) 20 mg PEG BID [facility] Last Admin: 12/09/16 10:56 Dose: 20 mg Finasteride (Proscar) 5 mg PEG DAILY [facility] Last Admin: 12/09/16 10:56 Dose: 5 mg Levetiracetam (Keppra) 500 mg PEG BID [facility] Last Admin: 12/09/16 10:56 Dose: 500 mg Tamsulosin HCl (Flomax) 0.8 mg PEG DAILY [facility] Last Admin: 12/09/16 10:56 Dose: 0.8 mg - Labs Labs: 12/08/16 07:27 12/08/16 07:27 PT 10.6 SECONDS (9.7-12.2) 11/24/15 14:10 INR 1.0 11/24/15 14:10 APTT 25 SECONDS (21-34) 11/24/15 14:10 - Constitutional Appears: Non-toxic (unresponsive), Other - Head Exam Head Exam: ATRAUMATIC, NORMOCEPHALIC - Eye Exam Eye Exam: PERRL. absent: EOMI - Neck Exam Neck Exam: absent: Lymphadenopathy, Thyromegaly
--- NOTE | 2016-12-09 14:23 | CP.PCM.PN ---
<Carlos Dumont - Last Filed: 12/09/16 17:36> Subjective - Date & Time of Evaluation Date of Evaluation: 12/09/16 Time of Evaluation: 10:45 - Subjective Subjective: 66M with pmh of anoxic brain injury. Patient's trach tube in place and being cleaned. Yoo in place as well. no erythema/swelling around trachea site or peg tube. No acute events overnight as per nursing. Patient is in no acute distress. Objective - Vital Signs/Intake and Output Vital Signs (last 24 hours): Temp Pulse Resp BP Pulse Ox 97.8 F 80 20 116/76 97 12/09/16 07:35 12/09/16 12:23 12/09/16 07:35 12/09/16 07:35 12/09/16 07:35 Intake and Output: 12/09/16 12/09/16 06:59 18:59 Intake Total 480 680 Output Total 700 300 Balance -220 380 - Medications Medications: Current Medications Aspirin (Aspirin Chewable) 81 mg PEG DAILY [facility] Last Admin: 12/09/16 10:56 Dose: 81 mg Bethanechol Chloride (Urecholine) 20 mg PEG TID [facility] Last Admin: 12/09/16 13:43 Dose: 20 mg Carvedilol (Coreg) 3.125 mg PEG BID [facility] Last Admin: 12/09/16 10:56 Dose: 3.125 mg Ciprofloxacin (Cipro) 500 mg PEG Q12H [facility] Last Admin: 12/09/16 10:55 Dose: 500 mg Clopidogrel Bisulfate (Plavix) 75 mg PO DAILY [facility] Last Admin: 12/09/16 10:56 Dose: 75 mg Famotidine (Pepcid) 20 mg PEG BID [facility] Last Admin: 12/09/16 10:56 Dose: 20 mg Finasteride (Proscar) 5 mg PEG DAILY [facility] Last Admin: 12/09/16 10:56 Dose: 5 mg Levetiracetam (Keppra) 500 mg PEG BID [facility] Last Admin: 12/09/16 10:56 Dose: 500 mg Tamsulosin HCl (Flomax) 0.8 mg PEG DAILY [facility] Last Admin: 12/09/16 10:56 Dose: 0.8 mg - Labs Labs: 12/08/16 07:27 12/08/16 07:27 PT 10.6 SECONDS (9.7-12.2) 11/24/15 14:10 INR 1.0 11/24/15 14:10 APTT 25 SECONDS (21-34) 11/24/15 14:10 - Constitutional Appears: Non-toxic, Other (Pt. suffering from anoxic brain injury and it not responsive) - Head Exam Head Exam: ATRAUMATIC, NORMOCEPHALIC - Eye Exam Eye Exam: absent: EOMI Pupil Exam: NORMAL ACCOMODATION, PERRL - ENT Exam ENT Exam: Mucous Membranes Moist - Neck Exam Neck Exam: absent: Full ROM - Respiratory Exam Respiratory Exam: Clear to Ausculation Bilateral, NORMAL BREATHING PATTERN - Cardiovascular Exam Cardiovascular Exam: REGULAR RHYTHM, +S1, +S2. absent: JVD - GI/Abdominal Exam GI & Abdominal Exam: Soft - Extremities Exam Extremities Exam: absent: Joint Swelling, Pedal Edema - Skin Skin Exam: Dry, Intact, Normal Color, Warm Assessment and Plan - Assessment and Plan (Free Text) Plan: No acute changes, continue weekly labs on Mondays Turn Q2 hours- Continue to monitor Isosource feeds through PEG @ reduced rate 60cc/hr per Nutrition recommendations Continue trach suctioning as needed Pending fdc facility placement UTI Urine Culture 12/03/16 - Positive Kleb pneumo, sensitive to cipro PO cipro 500 mg q12h to complete 7 days (Started 12/07/16- Day 2) Abdominal Distention- resolved Abdominal x-ray 12/03/16: no evidence of bowel obstruction Abdomen X-RAY: Normal. No obstruction. No free air. PEG tube remains in satisfactory position. Hypoalbuminemia -resolved Sacral Ulcers Stage I ulcer present, about 2 cm in length at upper sacral crease; area frequently alternates between Stage I and healed ulcer. Continue frequent turning, protective ointment and skin checks. 11/21: Apply ointment daily to sacral area to prevent ulceration Urinary Retention f/u repeat urine C&S Yoo in place Flomax 0.8mg PEG daily Proscar 5mg PO daily Bethanecol 20 mg PO TID- started after persistent retention (before current UTI ) and found to be effective. monitor I's and O's Hypernatremia 139 on 12/08/16 Stable Continue free water flushes of 100 cc Q8h Continue to monitor weekly labs Failure to thrive feeds on hold 100cc of free water flush q8H Measure weight weekly. Continue to monitor Respiratory failure trach collar in place - normal resp pattern, thick secretions CAD (coronary artery disease) s/p cardiac stents on 06/13/15 ASA 81mg via PEG daily Coreg 3.125mg PEG BID Seizures Keppra 500mg PEG BID for seizure prophylaxis Lower extremity edema Lasix via PEG as needed. Administered. Prophylactic measure Pepcid 20 mg PEG BID Lovenox 40mg SC daily Sennosides 8.6mg PEG daily SCDs and offloading boots Continue to monitor medication administrations and clinical presentation <Donnell Ying - Last Filed: 12/09/16 21:35> Objective - Vital Signs/Intake and Output Vital Signs (last 24 hours): Temp Pulse Resp BP Pulse Ox 98.2 F 90 20 108/73 98 12/09/16 15:05 12/09/16 18:19 12/09/16 15:05 12/09/16 15:05 12/09/16 15:05 Intake and Output: 12/09/16 12/10/16 18:59 06:59 Intake Total 1160 Output Total 600 Balance 560 - Medications Medications: Current Medications Aspirin (Aspirin Chewable) 81 mg PEG DAILY [facility] Last Admin: 12/09/16 10:56 Dose: 81 mg Bethanechol Chloride (Urecholine) 20 mg PEG TID [facility] Last Admin: 12/09/16 17:37 Dose: 20 mg Carvedilol (Coreg) 3.125 mg PEG BID [facility] Last Admin: 12/09/16 17:27 Dose: 3.125 mg Ciprofloxacin (Cipro) 500 mg PEG Q12H [facility] Last Admin: 12/09/16 10:55 Dose: 500 mg Clopidogrel Bisulfate (Plavix) 75 mg PO DAILY [facility] Last Admin: 12/09/16 10:56 Dose: 75 mg Famotidine (Pepcid) 20 mg PEG BID [facility] Last Admin: 12/09/16 17:39 Dose: 20 mg Finasteride (Proscar) 5 mg PEG DAILY [facility] Last Admin: 12/09/16 10:56 Dose: 5 mg Levetiracetam (Keppra) 500 mg PEG BID [facility] Last Admin: 12/09/16 17:35 Dose: 500 mg Tamsulosin HCl (Flomax) 0.8 mg PEG DAILY [facility] Last Admin: 12/09/16 10:56 Dose: 0.8 mg - Labs Labs: 12/08/16 07:27 12/08/16 07:27 PT 10.6 SECONDS (9.7-12.2) 11/24/15 14:10 INR 1.0 11/24/15 14:10 APTT 25 SECONDS (21-34) 11/24/15 14:10 Attending/Attestation - Attestation I have personally seen and examined this patient.: Yes I have fully participated in the care of the patient.: Yes I have reviewed all pertinent clinical information, including history, physical exam and plan: Yes Notes (Text): 12/09/16 21:34 patient was seen and examined at bedside with the resident no change in clinical condition Continue antibiotics for UTI
[2016-12-10] MEDS: levETIRAcetam 100 mg/ml (5ml) Oral Syringe PEG SCH ×2 (11:10→18:11)
--- NOTE | 2016-12-10 23:12 | CP.PCM.PN ---
<DumontCarlos - Last Filed: 12/11/16 00:47> Subjective - Date & Time of Evaluation Date of Evaluation: 12/10/16 Time of Evaluation: 09:30 - Subjective Subjective: 66M with pmh of anoxic brain injury. Patient's trach tube in place and being cleaned. Yoo in place as well. no erythema/swelling around trachea site or peg tube. No acute events overnight as per nursing. Patient is in no acute distress. Objective - Vital Signs/Intake and Output Vital Signs (last 24 hours): Temp Pulse Resp BP Pulse Ox 97.6 F 66 20 133/84 100 12/10/16 16:07 12/10/16 16:53 12/10/16 16:07 12/10/16 16:07 12/10/16 16:07 Intake and Output: 12/10/16 12/11/16 18:59 06:59 Intake Total 1160 680 Output Total 500 600 Balance 660 80 - Medications Medications: Current Medications Aspirin (Aspirin Chewable) 81 mg PEG DAILY [facility] Last Admin: 12/10/16 09:43 Dose: 81 mg Bethanechol Chloride (Urecholine) 20 mg PEG TID [facility] Last Admin: 12/10/16 18:08 Dose: 20 mg Carvedilol (Coreg) 3.125 mg PEG BID [facility] Last Admin: 12/10/16 18:09 Dose: 3.125 mg Ciprofloxacin (Cipro) 500 mg PEG Q12H [facility] Last Admin: 12/10/16 21:12 Dose: 500 mg Clopidogrel Bisulfate (Plavix) 75 mg PO DAILY [facility] Last Admin: 12/10/16 09:44 Dose: 75 mg Famotidine (Pepcid) 20 mg PEG BID [facility] Last Admin: 12/10/16 18:09 Dose: 20 mg Finasteride (Proscar) 5 mg PEG DAILY [facility] Last Admin: 12/10/16 11:10 Dose: 5 mg Levetiracetam (Keppra) 500 mg PEG BID [facility] Last Admin: 12/10/16 18:11 Dose: 500 mg Tamsulosin HCl (Flomax) 0.8 mg PEG DAILY [facility] Last Admin: 12/10/16 09:44 Dose: 0.8 mg - Labs Labs: 12/08/16 07:27 12/08/16 07:27 PT 10.6 SECONDS (9.7-12.2) 11/24/15 14:10 INR 1.0 11/24/15 14:10 APTT 25 SECONDS (21-34) 11/24/15 14:10 - Constitutional Appears: No Acute Distress - Head Exam Head Exam: ATRAUMATIC, NORMOCEPHALIC - Respiratory Exam Respiratory Exam: Clear to Ausculation Bilateral Additional comments: breathes through tracheostomy tube - Cardiovascular Exam Cardiovascular Exam: REGULAR RHYTHM, RRR. absent: JVD - GI/Abdominal Exam GI & Abdominal Exam: Soft - Psychiatric Exam Additional comments: Anoxic Brain Injury, not able to communicate - Skin Skin Exam: Dry, Intact, Normal Color, Warm Additional comments: no bed sores on back or sacrum Assessment and Plan - Assessment and Plan (Free Text) Plan: No acute changes, continue weekly labs on Mondays Turn Q2 hours- Continue to monitor Isosource feeds through PEG @ reduced rate 60cc/hr per Nutrition recommendations Continue trach suctioning as needed Pending trader facility placement UTI Urine Culture 12/03/16 - Positive Kleb pneumo, sensitive to cipro PO cipro 500 mg q12h to complete 7 days (Started 12/07/16- Day 2) Abdominal Distention- resolved Abdominal x-ray 12/03/16: no evidence of bowel obstruction Abdomen X-RAY: Normal. No obstruction. No free air. PEG tube remains in satisfactory position. Hypoalbuminemia -resolved Sacral Ulcers Stage I ulcer present, about 2 cm in length at upper sacral crease; area frequently alternates between Stage I and healed ulcer. Continue frequent turning, protective ointment and skin checks. 11/21: Apply ointment daily to sacral area to prevent ulceration Urinary Retention f/u repeat urine C&S Yoo in place Flomax 0.8mg PEG daily Proscar 5mg PO daily renewed Bethanecol 20 mg PO TID- started after persistent retention (before current UTI ) and found to be effective. monitor I's and O's Hypernatremia 139 on 12/08/16 Stable Continue free water flushes of 100 cc Q8h Continue to monitor weekly labs Failure to thrive feeds on hold 100cc of free water flush q8H Measure weight weekly. Continue to monitor Respiratory failure trach collar in place - normal resp pattern, thick secretions CAD (coronary artery disease) s/p cardiac stents on 06/13/15 ASA 81mg via PEG daily Coreg 3.125mg PEG BID renewed Seizures Keppra 500mg PEG BID for seizure prophylaxis Lower extremity edema Lasix via PEG as needed. Administered. Prophylactic measure Pepcid 20 mg PEG BID renewed Lovenox 40mg SC daily Sennosides 8.6mg PEG daily SCDs and offloading boots Continue to monitor medication administrations and clinical presentation <Donnell Ying - Last Filed: 12/11/16 09:33> Objective - Vital Signs/Intake and Output Vital Signs (last 24 hours): Temp Pulse Resp BP Pulse Ox 98.9 F 66 20 115/72 95 12/11/16 08:13 12/11/16 08:33 12/11/16 08:13 12/11/16 08:13 12/11/16 08:13 Intake and Output: 12/11/16 12/11/16 06:59 18:59 Intake Total 1360 Output Total 900 Balance 460 - Medications Medications: Current Medications Aspirin (Aspirin Chewable) 81 mg PEG DAILY [facility] Last Admin: 12/10/16 09:43 Dose: 81 mg Bethanechol Chloride (Urecholine) 20 mg PEG TID [facility] Last Admin: 12/10/16 18:08 Dose: 20 mg Carvedilol (Coreg) 3.125 mg PEG BID [facility] Last Admin: 12/10/16 18:09 Dose: 3.125 mg Ciprofloxacin (Cipro) 500 mg PEG Q12H [facility] Last Admin: 12/10/16 21:12 Dose: 500 mg Clopidogrel Bisulfate (Plavix) 75 mg PO DAILY [facility] Last Admin: 12/10/16 09:44 Dose: 75 mg Famotidine (Pepcid) 20 mg PEG BID [facility] Last Admin: 12/10/16 18:09 Dose: 20 mg Finasteride (Proscar) 5 mg PEG DAILY [facility] Last Admin: 12/10/16 11:10 Dose: 5 mg Levetiracetam (Keppra) 500 mg PEG BID [facility] Last Admin: 12/10/16 18:11 Dose: 500 mg Tamsulosin HCl (Flomax) 0.8 mg PEG DAILY [facility] Last Admin: 12/10/16 09:44 Dose: 0.8 mg - Labs Labs: 12/08/16 07:27 12/08/16 07:27 PT 10.6 SECONDS (9.7-12.2) 11/24/15 14:10 INR 1.0 11/24/15 14:10 APTT 25 SECONDS (21-34) 11/24/15 14:10 Attending/Attestation - Attestation I have personally seen and examined this patient.: Yes I have fully participated in the care of the patient.: Yes I have reviewed all pertinent clinical information, including history, physical exam and plan: Yes Notes (Text): 12/11/16 09:31 Patient seen and examined at bedside No change in clinical condition Continue current management Awaiting placement
[2016-12-11] MEDS: levETIRAcetam 100 mg/ml (5ml) Oral Syringe PEG SCH ×2 (10:48→18:33)
--- NOTE | 2016-12-11 18:29 | CP.PCM.PN ---
<Carlso Dumont - Last Filed: 12/11/16 18:57> Subjective - Date & Time of Evaluation Date of Evaluation: 12/11/16 Time of Evaluation: 07:50 - Subjective Subjective: 66M with pmh of anoxic brain injury. Patient's trach tube in place and being cleaned, no erythema/swelling around trachea site or peg tube. No acute events overnight as per nursing. Yoo in place as well with small amount of reddish/ pink fluid outside of the tube next to the urethral opening. Objective - Vital Signs/Intake and Output Vital Signs (last 24 hours): Temp Pulse Resp BP Pulse Ox 98.1 F 79 20 119/83 99 12/11/16 16:00 12/11/16 16:00 12/11/16 16:00 12/11/16 16:00 12/11/16 16:00 Intake and Output: 12/11/16 12/11/16 06:59 18:59 Intake Total 1360 680 Output Total 900 300 Balance 460 380 - Medications Medications: Current Medications Aspirin (Aspirin Chewable) 81 mg PEG DAILY [facility] Last Admin: 12/11/16 10:48 Dose: 81 mg Bethanechol Chloride (Urecholine) 20 mg PEG TID [facility] Last Admin: 12/11/16 13:30 Dose: 20 mg Carvedilol (Coreg) 3.125 mg PEG BID [facility] Last Admin: 12/11/16 10:49 Dose: 3.125 mg Ciprofloxacin (Cipro) 500 mg PEG Q12H [facility] Last Admin: 12/11/16 10:49 Dose: 500 mg Clopidogrel Bisulfate (Plavix) 75 mg PO DAILY [facility] Last Admin: 12/11/16 10:49 Dose: 75 mg Famotidine (Pepcid) 20 mg PEG BID [facility] Last Admin: 12/11/16 10:49 Dose: 20 mg Finasteride (Proscar) 5 mg PEG DAILY [facility] Last Admin: 12/11/16 10:49 Dose: 5 mg Levetiracetam (Keppra) 500 mg PEG BID [facility] Last Admin: 12/11/16 10:48 Dose: 500 mg Tamsulosin HCl (Flomax) 0.8 mg PEG DAILY [facility] Last Admin: 12/11/16 10:49 Dose: 0.8 mg - Labs Labs: 12/08/16 07:27 12/08/16 07:27 PT 10.6 SECONDS (9.7-12.2) 11/24/15 14:10 INR 1.0 11/24/15 14:10 APTT 25 SECONDS (21-34) 11/24/15 14:10 - Constitutional Appears: Non-toxic, Chronically Ill - Head Exam Head Exam: ATRAUMATIC - Eye Exam Eye Exam: absent: EOMI - Respiratory Exam Respiratory Exam: Clear to Ausculation Bilateral, NORMAL BREATHING PATTERN Additional comments: breathes through tracheostomy tube - Cardiovascular Exam Cardiovascular Exam: REGULAR RHYTHM, RRR, +S1, +S2. absent: JVD - GI/Abdominal Exam GI & Abdominal Exam: Soft, Normal Bowel Sounds. absent: Tenderness - Extremities Exam Extremities Exam: Joint Swelling. absent: Pedal Edema - Neurological Exam Neurological Exam: Altered - Psychiatric Exam Additional comments: Anoxic Brain Injury, not able to communicate - Skin Skin Exam: Dry, Intact Additional comments: back side did not have any lesions. Assessment and Plan - Assessment and Plan (Free Text) Plan: No acute changes, continue weekly labs on Mondays Turn Q2 hours- Continue to monitor Isosource feeds through PEG @ reduced rate 60cc/hr per Nutrition recommendations Continue trach suctioning as needed Pending nursing home facility placement UTI Urine Culture 12/03/16 - Positive Kleb pneumo, sensitive to cipro PO cipro 500 mg q12h to complete 7 days (Started 12/07/16- Day 2) ordered Urine Culture, UA, CBC, CMP for reddish fluid around the urethra Sacral Ulcers Stage I ulcer present, about 2 cm in length at upper sacral crease; area frequently alternates between Stage I and healed ulcer. Continue frequent turning, protective ointment and skin checks. 11/21: Apply ointment daily to sacral area to prevent ulceration Urinary Retention f/u repeat urine C&S Yoo in place Flomax 0.8mg PEG daily Proscar 5mg PO daily Bethanecol 20 mg PO TID- started after persistent retention (before current UTI ) and found to be effective. monitor I's and O's Failure to thrive feeds on hold 100cc of free water flush q8H Measure weight weekly. Continue to monitor Respiratory failure trach collar in place - normal resp pattern, thick secretions CAD (coronary artery disease) s/p cardiac stents on 06/13/15 ASA 81mg via PEG daily Coreg 3.125mg PEG BID renewed Seizures Keppra 500mg PEG BID for seizure prophylaxis Lower extremity edema Lasix via PEG as needed. Administered. Prophylactic measure Pepcid 20 mg PEG BID renewed Lovenox 40mg SC daily Sennosides 8.6mg PEG daily SCDs and offloading boots Continue to monitor medication administrations and clinical presentation <Donnell Ying - Last Filed: 12/11/16 21:34> Objective - Vital Signs/Intake and Output Vital Signs (last 24 hours): Temp Pulse Resp BP Pulse Ox 98.1 F 79 20 119/83 99 12/11/16 16:00 12/11/16 21:02 12/11/16 16:00 12/11/16 16:00 12/11/16 16:00 Intake and Output: 12/11/16 12/12/16 18:59 06:59 Intake Total 680 Output Total 300 Balance 380 - Medications Medications: Current Medications Aspirin (Aspirin Chewable) 81 mg PEG DAILY [facility] Last Admin: 12/11/16 10:48 Dose: 81 mg Bethanechol Chloride (Urecholine) 20 mg PEG TID [facility] Last Admin: 12/11/16 18:34 Dose: 20 mg Carvedilol (Coreg) 3.125 mg PEG BID [facility] Last Admin: 12/11/16 18:34 Dose: 3.125 mg Ciprofloxacin (Cipro) 500 mg PEG Q12H [facility] Last Admin: 12/11/16 10:49 Dose: 500 mg Clopidogrel Bisulfate (Plavix) 75 mg PO DAILY [facility] Last Admin: 12/11/16 10:49 Dose: 75 mg Famotidine (Pepcid) 20 mg PEG BID [facility] Last Admin: 12/11/16 18:34 Dose: 20 mg Finasteride (Proscar) 5 mg PEG DAILY [facility] Last Admin: 12/11/16 10:49 Dose: 5 mg Levetiracetam (Keppra) 500 mg PEG BID [facility] Last Admin: 12/11/16 18:33 Dose: 500 mg Tamsulosin HCl (Flomax) 0.8 mg PEG DAILY [facility] Last Admin: 12/11/16 10:49 Dose: 0.8 mg - Labs Labs: 12/08/16 07:27 12/08/16 07:27 PT 10.6 SECONDS (9.7-12.2) 11/24/15 14:10 INR 1.0 11/24/15 14:10 APTT 25 SECONDS (21-34) 11/24/15 14:10 Attending/Attestation - Attestation I have personally seen and examined this patient.: Yes I have fully participated in the care of the patient.: Yes I have reviewed all pertinent clinical information, including history, physical exam and plan: Yes Notes (Text): 12/11/16 21:34 patient is seen and examined at bedside discussed the plan of care with the resident follow-up labs in the morning
[2016-12-12 08:53] LABS: BASO % 0.4 % (0.0-2.0); EOS # 0.4 K/uL (0.0-0.7); EOS % 4.3 % (0.0-4.0); LYMPH # 2.1 K/uL (1.0-4.3); LYMPH % 26.1 % (20.0-40.0); MEAN CORPUSCULAR HEMOGLOBIN 28.3 pg (27.0-31.0); MEAN CORPUSCULAR HGB CONC 32.5 g/dL (33.0-37.0); MEAN PLATELET VOLUME 9.3 fL (7.2-11.7); MONO # 0.9 K/uL (0.0-0.8); MONO % 11.5 % (0.0-10.0); NEUT # 4.7 K/uL (1.8-7.0); NEUT % 57.7 % (50.0-75.0); NRBC % 0.1 % (0.0-2.0); RBC 4.24 Mil/uL (4.40-5.90); RED CELL DISTRIBUTION WIDTH 15.2 % (11.5-14.5); WHITE BLOOD COUNT 8.2 K/uL (4.8-10.8)
[2016-12-12 09:27] LABS: ALBUMIN 3.5 g/dL (3.5-5.0)
[2016-12-12 09:29] LABS: GFR NON-AFRICAN AMERICAN > 60
[2016-12-12 09:30] LABS: ALB/GLOB RATIO 0.9 (1.0-2.1); ALT/SGPT 67 U/L (21-72); AST/SGOT 27 U/L (17-59); BLOOD UREA NITROGEN 18 mg/dL (9-20)
[2016-12-12 09:31] LABS: CALCIUM 8.5 mg/dl (8.6-10.4)
[2016-12-12] MEDS: levETIRAcetam 100 mg/ml (5ml) Oral Syringe PEG SCH ×2 (11:44→20:03)
--- NOTE | 2016-12-12 13:52 | CP.PCM.PN ---
Subjective - Date & Time of Evaluation Date of Evaluation: 12/12/16 Time of Evaluation: 13:00 - Subjective Subjective: Patient seen and examined at bedside Patient is a unresponsive No change in clinical condition Objective - Vital Signs/Intake and Output Vital Signs (last 24 hours): Temp Pulse Resp BP Pulse Ox 98.1 F 77 18 102/70 95 12/12/16 09:30 12/12/16 09:30 12/12/16 09:30 12/12/16 09:30 12/12/16 09:30 Intake and Output: 12/12/16 12/12/16 06:59 18:59 Intake Total 1360 Output Total 800 Balance 560 - Medications Medications: Current Medications Aspirin (Aspirin Chewable) 81 mg PEG DAILY [facility] Last Admin: 12/12/16 11:45 Dose: 81 mg Bethanechol Chloride (Urecholine) 20 mg PEG TID [facility] Last Admin: 12/12/16 11:45 Dose: 20 mg Carvedilol (Coreg) 3.125 mg PEG BID [facility] Last Admin: 12/12/16 11:49 Dose: Not Given Ciprofloxacin (Cipro) 500 mg PEG Q12H [facility] Last Admin: 12/12/16 11:45 Dose: 500 mg Clopidogrel Bisulfate (Plavix) 75 mg PO DAILY [facility] Last Admin: 12/12/16 11:45 Dose: 75 mg Famotidine (Pepcid) 20 mg PEG BID [facility] Last Admin: 12/12/16 11:53 Dose: 20 mg Finasteride (Proscar) 5 mg PEG DAILY [facility] Last Admin: 12/12/16 11:46 Dose: 5 mg Levetiracetam (Keppra) 500 mg PEG BID [facility] Last Admin: 12/12/16 11:44 Dose: 500 mg Tamsulosin HCl (Flomax) 0.8 mg PEG DAILY [facility] Last Admin: 12/12/16 11:44 Dose: 0.8 mg - Labs Labs: 12/12/16 08:33 12/12/16 08:33 PT 10.6 SECONDS (9.7-12.2) 11/24/15 14:10 INR 1.0 11/24/15 14:10 APTT 25 SECONDS (21-34) 11/24/15 14:10 - Head Exam Head Exam: ATRAUMATIC, NORMOCEPHALIC - Eye Exam Eye Exam: absent: Scleral icterus - ENT Exam ENT Exam: Mucous Membranes Moist - Neck Exam Additional comments: Tracheostomy present. - Respiratory Exam Respiratory Exam: Clear to Ausculation Bilateral - Cardiovascular Exam Cardiovascular Exam: REGULAR RHYTHM, +S1, +S2 - GI/Abdominal Exam GI & Abdominal Exam: Soft Additional comments: PEG tube present. Site is clean - Extremities Exam Extremities Exam: absent: Pedal Edema - Neurological Exam Additional comments: Patient is anoxic and response to tactile stimuli - Psychiatric Exam Psychiatric exam: Normal Affect, Normal Mood Assessment and Plan - Assessment and Plan (Free Text) Plan: No acute changes, continue weekly labs on Mondays Turn Q2 hours- Continue to monitor Isosource feeds through PEG @ reduced rate 60cc/hr per Nutrition recommendations Continue trach suctioning as needed Pending prepleater facility placement UTI 12/12/2016: UTI is resolved. Completed antibiotics Urine Culture 12/03/16 - Positive Kleb pneumo, sensitive to cipro PO cipro 500 mg q12h to complete 7 days (Started 12/07/16- Day 2) ordered Urine Culture, UA, CBC, CMP for reddish fluid around the urethra Sacral Ulcers 12/12/2016: Sacral ulcer is healed Stage I ulcer present, about 2 cm in length at upper sacral crease; area frequently alternates between Stage I and healed ulcer. Continue frequent turning, protective ointment and skin checks. 11/21: Apply ointment daily to sacral area to prevent ulceration Urinary Retention 12/12/2016: Patient has a Yoo's catheter. f/u repeat urine C&S Yoo in place Flomax 0.8mg PEG daily Proscar 5mg PO daily Bethanecol 20 mg PO TID- started after persistent retention (before current UTI ) and found to be effective. monitor I's and O's Failure to thrive 12/12/2016: Continue feeding. Patient is tolerating the feeds feeds on hold 100cc of free water flush q8H Measure weight weekly. Continue to monitor Respiratory failure trach collar in place - normal resp pattern, thick secretions CAD (coronary artery disease) s/p cardiac stents on 06/13/15 ASA 81mg via PEG daily Coreg 3.125mg PEG BID Seizures Keppra 500mg PEG BID for seizure prophylaxis Lower extremity edema Lasix via PEG as needed. Administered. Prophylactic measure Pepcid 20 mg PEG BID renewed Lovenox 40mg SC daily Sennosides 8.6mg PEG daily SCDs and offloading boots Continue to monitor medication administrations and clinical presentation
--- NOTE | 2016-12-13 03:02 | CP.PCM.PN ---
<Amandeep Lomas - Last Filed: 12/13/16 10:59> Subjective - Date & Time of Evaluation Date of Evaluation: 12/13/16 Time of Evaluation: 01:00 - Subjective Subjective: PGY1 Note - Hospitalist service Patient seen and examined at bedside. No acute overnight events. Patient continues to be unresponsive. Currently no change in clinical condition. Prognosis poor. Objective - Vital Signs/Intake and Output Vital Signs (last 24 hours): Temp Pulse Resp BP Pulse Ox 97.4 F L 75 20 116/72 99 12/12/16 23:59 12/12/16 23:59 12/12/16 23:59 12/12/16 23:59 12/12/16 23:59 Intake and Output: 12/12/16 12/13/16 18:59 06:59 Output Total 750 Balance -750 - Medications Medications: Current Medications Aspirin (Aspirin Chewable) 81 mg PEG DAILY [facility] Last Admin: 12/12/16 11:45 Dose: 81 mg Bethanechol Chloride (Urecholine) 20 mg PEG TID [facility] Last Admin: 12/12/16 20:04 Dose: 20 mg Carvedilol (Coreg) 3.125 mg PEG BID [facility] Last Admin: 12/12/16 20:03 Dose: 3.125 mg Ciprofloxacin (Cipro) 500 mg PEG Q12H [facility] Last Admin: 12/12/16 22:48 Dose: 500 mg Clopidogrel Bisulfate (Plavix) 75 mg PO DAILY [facility] Last Admin: 12/12/16 11:45 Dose: 75 mg Enoxaparin Sodium (Lovenox) 40 mg SC DAILY [facility] Famotidine (Pepcid) 20 mg PEG BID [facility] Last Admin: 12/12/16 20:03 Dose: 20 mg Finasteride (Proscar) 5 mg PEG DAILY [facility] Last Admin: 12/12/16 11:46 Dose: 5 mg Levetiracetam (Keppra) 500 mg PEG BID [facility] Last Admin: 12/12/16 20:03 Dose: 500 mg Tamsulosin HCl (Flomax) 0.8 mg PEG DAILY [facility] Last Admin: 12/12/16 11:44 Dose: 0.8 mg - Labs Labs: 12/12/16 08:33 12/12/16 08:33 PT 10.6 SECONDS (9.7-12.2) 11/24/15 14:10 INR 1.0 11/24/15 14:10 APTT 25 SECONDS (21-34) 11/24/15 14:10 - Head Exam Head Exam: ATRAUMATIC, NORMAL INSPECTION - Eye Exam Eye Exam: absent: Scleral icterus - ENT Exam ENT Exam: Mucous Membranes Moist - Neck Exam Additional comments: Tracheostomy - Respiratory Exam Respiratory Exam: Clear to Ausculation Bilateral - Cardiovascular Exam Cardiovascular Exam: REGULAR RHYTHM, +S1, +S2 - GI/Abdominal Exam GI & Abdominal Exam: Soft Additional comments: PEG tube present, Site CDI - Extremities Exam Extremities Exam: absent: Pedal Edema - Neurological Exam Additional comments: Pt with anoxic injury - responds to tactile stimuli - Psychiatric Exam Psychiatric exam: Normal Affect, Normal Mood Assessment and Plan - Assessment and Plan (Free Text) Plan: Anoxic encephalopathy Continue weekly labs on Mondays. Prognosis poor. Pending [place] [facility] facility placement Turn Q2 hours- Continue to monitor Isosource feeds through PEG @ reduced rate 60cc/hr per Nutrition recommendations Continue trach suctioning as needed UTI 12/12/2016: UTI is resolved. Completed antibiotics Urine Culture 12/03/16 - Positive Kleb pneumo, sensitive to cipro PO cipro 500 mg q12h to complete 7 days (Started 12/07/16) f/u UC + UA for reddish fluid around the urethra Sacral Ulcers 12/12/2016: Sacral ulcer is healed Continue frequent turning, protective ointment and skin checks. Stage I ulcer present, about 2 cm in length at upper sacral crease; area frequently alternates between Stage I and healed ulcer. 11/21: Apply ointment daily to sacral area to prevent ulceration Urinary Retention Patient has a Yoo's catheter. f/u repeat urine C&S Stopped Flomax 0.8mg PEG daily Proscar 5mg PO daily Bethanecol 20 mg PO TID- started after persistent retention (before current UTI ) and found to be effective. monitor I's and O's Failure to thrive Continue feeding. Patient is tolerating the feeds 100cc of free water flush q8H Measure weight weekly. Continue to monitor Respiratory failure trach collar in place - normal resp pattern, thick secretions CAD (coronary artery disease) s/p cardiac stents on 06/13/15 ASA 81mg via PEG daily Coreg 3.125mg PEG BID Seizures Keppra 500mg PEG BID for seizure prophylaxis Lower extremity edema Lasix via PEG as needed. Administered. Prophylactic measure Pepcid 20 mg PEG BID renewed Lovenox 40mg SC daily SCDs and offloading boots <Donnell Ying - Last Filed: 12/13/16 15:47> Objective - Vital Signs/Intake and Output Vital Signs (last 24 hours): Temp Pulse Resp BP Pulse Ox 98.6 F 83 20 111/72 98 12/13/16 07:47 12/13/16 07:47 12/13/16 07:47 12/13/16 07:47 12/13/16 07:47 Intake and Output: 12/13/16 12/13/16 06:59 18:59 Intake Total 680 Output Total 1050 Balance -370 - Medications Medications: Current Medications Aspirin (Aspirin Chewable) 81 mg PEG DAILY [facility] Last Admin: 12/13/16 11:01 Dose: 81 mg Bethanechol Chloride (Urecholine) 20 mg PEG TID [facility] Last Admin: 12/13/16 14:33 Dose: 20 mg Carvedilol (Coreg) 3.125 mg PEG BID [facility] Last Admin: 12/13/16 11:01 Dose: 3.125 mg Ciprofloxacin (Cipro) 500 mg PEG Q12H [facility] Last Admin: 12/13/16 10:30 Dose: 500 mg Clopidogrel Bisulfate (Plavix) 75 mg PO DAILY [facility] Last Admin: 12/13/16 11:01 Dose: 75 mg Enoxaparin Sodium (Lovenox) 40 mg SC DAILY [facility] Last Admin: 12/13/16 11:00 Dose: 40 mg Famotidine (Pepcid) 20 mg PEG BID [facility] Last Admin: 12/13/16 11:01 Dose: 20 mg Finasteride (Proscar) 5 mg PEG DAILY [facility] Last Admin: 12/13/16 11:06 Dose: 5 mg - Labs Labs: 12/12/16 08:33 12/12/16 08:33 PT 10.6 SECONDS (9.7-12.2) 11/24/15 14:10 INR 1.0 11/24/15 14:10 APTT 25 SECONDS (21-34) 11/24/15 14:10 Attending/Attestation - Attestation I have personally seen and examined this patient.: Yes I have fully participated in the care of the patient.: Yes I have reviewed all pertinent clinical information, including history, physical exam and plan: Yes Notes (Text): 12/13/16 15:47 Patient was seen and examined at bedside Patient is anoxic and unresponsive Continue current management Agree with the above history and physical and assessment/plan by the resident
[2016-12-13] MEDS: Enoxaparin 40 mg Syringe SC SCH (11:00)
[2016-12-13] MEDS: levETIRAcetam 100 mg/ml (5ml) Oral Syringe PEG SCH ×2 (11:02→17:36)
[2016-12-13 12:00] LABS: SQUAMOUS EPITHIAL 10 /hpf (0-5); URINE AMORPHOUS SEDIMENT RARE /ul (<OCC); URINE BACTERIA MANY (<OCC); URINE BILIRUBIN NEGATIVE (NEGATIVE); URINE BLOOD NEGATIVE (NEGATIVE); URINE CLARITY Turbid (Clear); URINE COLOR Amber (YELLOW); URINE GLUCOSE (UA) NORMAL (Normal); URINE LEUKOCYTE ESTERASE 2+ Leu/uL (Negative); URINE PROTEIN 1+ mg/dL (NEGATIVE); URINE TRIPLE PHOSPHATE CRYSTAL FEW /hpf (<OCC); URINE UROBILINOGEN NORMAL mg/dL (0.2-1.0)
--- NOTE | 2016-12-14 03:06 | CP.PCM.PN ---
<Amandeep Lomas - Last Filed: 12/14/16 05:35> Subjective - Date & Time of Evaluation Date of Evaluation: 12/14/16 Time of Evaluation: 12:30 - Subjective Subjective: PGY1 Note - Hospitalist service Patient seen and examined at bedside. No acute overnight events per nursing. Patient continues to be generally unresponsive. Tracheostomy tube, baker catheter, and PEG tube are all in place. Again no change in clinical condition. Prognosis is poor. Objective - Vital Signs/Intake and Output Vital Signs (last 24 hours): Temp Pulse Resp BP Pulse Ox 99 F 83 20 140/90 97 12/14/16 00:00 12/14/16 00:44 12/14/16 00:00 12/14/16 00:00 12/14/16 00:00 Intake and Output: 12/13/16 12/14/16 18:59 06:59 Intake Total 680 200 Output Total 200 240 Balance 480 -40 - Medications Medications: Current Medications Aspirin (Aspirin Chewable) 81 mg PEG DAILY [facility] Last Admin: 12/13/16 11:01 Dose: 81 mg Bethanechol Chloride (Urecholine) 20 mg PEG TID [facility] Last Admin: 12/13/16 17:36 Dose: 20 mg Carvedilol (Coreg) 3.125 mg PEG BID [facility] Last Admin: 12/13/16 17:36 Dose: 3.125 mg Ciprofloxacin (Cipro) 500 mg PEG Q12H [facility] Last Admin: 12/13/16 10:30 Dose: 500 mg Clopidogrel Bisulfate (Plavix) 75 mg PO DAILY [facility] Last Admin: 12/13/16 11:01 Dose: 75 mg Enoxaparin Sodium (Lovenox) 40 mg SC DAILY [facility] Last Admin: 12/13/16 11:00 Dose: 40 mg Famotidine (Pepcid) 20 mg PEG BID [facility] Last Admin: 12/13/16 17:35 Dose: 20 mg Finasteride (Proscar) 5 mg PEG DAILY [facility] Last Admin: 12/13/16 11:06 Dose: 5 mg Levetiracetam (Keppra) 500 mg PEG BID [facility] Last Admin: 12/13/16 17:36 Dose: 500 mg Tamsulosin HCl (Flomax) 0.8 mg PEG DAILY [facility] - Labs Labs: 12/12/16 08:33 12/12/16 08:33 PT 10.6 SECONDS (9.7-12.2) 11/24/15 14:10 INR 1.0 11/24/15 14:10 APTT 25 SECONDS (21-34) 11/24/15 14:10 - Head Exam Head Exam: ATRAUMATIC, NORMAL INSPECTION - Eye Exam Eye Exam: absent: Scleral icterus - ENT Exam ENT Exam: Mucous Membranes Moist - Neck Exam Additional comments: Tracheostomy site CDI - Respiratory Exam Respiratory Exam: Clear to Ausculation Bilateral - Cardiovascular Exam Cardiovascular Exam: REGULAR RHYTHM, +S1, +S2 - GI/Abdominal Exam GI & Abdominal Exam: Soft Additional comments: PEG tube present, Site CDI - Neurological Exam Neurological Exam: Altered (Pt with anoxic injury - responds to tactile stimuli) - Psychiatric Exam Psychiatric exam: Normal Affect, Normal Mood Assessment and Plan - Assessment and Plan (Free Text) Plan: Anoxic encephalopathy Continue weekly labs on Mondays. Prognosis poor. 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 Completed antibiotics Urine Culture 12/03/16 - Positive Kleb pneumo, sensitive to cipro PO cipro 500 mg q12h to complete 7 days (Started 12/07/16) prior - reddish fluid around the urethra -UA 12/13: 2+ leuk esterase, urine bacteria(+) ; however, 10 squamous epith cells (possibly contaminated) -f/u repeat urine C&S (received) Urinary Retention Patient has a Baker's catheter. f/u repeat urine C&S Restart Flomax 0.8mg PEG daily Proscar 5mg PO daily Bethanecol 20 mg PO TID- started after persistent retention (before current UTI ) and found to be effective. monitor I's and O's Failure to thrive Continue feeding. Patient is tolerating the feeds 100cc of free water flush q8H Measure weight weekly. Continue to monitor Respiratory failure trach collar in place - normal resp pattern, thick secretions CAD (coronary artery disease) s/p cardiac stents on 06/13/15 ASA 81mg via PEG daily Coreg 3.125mg PEG BID Plavix 75mg PO Daily Seizures Keppra 500mg PEG BID for seizure prophylaxis Lower extremity edema Lasix via PEG as needed. Administered. Sacral Ulcers 12/12/2016: Sacral ulcer is healed Continue frequent turning, protective ointment and skin checks. Stage I ulcer present, about 2 cm in length at upper sacral crease; area frequently alternates between Stage I and healed ulcer. 11/21: Apply ointment daily to sacral area to prevent ulceration Prophylactic measure Pepcid 20 mg PEG BID renewed Lovenox 40mg SC daily SCDs and offloading boots <StepanCarlos Akevin Romero - Last Filed: 12/14/16 14:17> Objective - Vital Signs/Intake and Output Vital Signs (last 24 hours): Temp Pulse Resp BP Pulse Ox 98 F 91 H 20 104/70 97 12/14/16 10:04 12/14/16 10:04 12/14/16 10:04 12/14/16 10:04 12/14/16 10:04 Intake and Output: 12/14/16 12/14/16 06:59 18:59 Intake Total 880 Output Total 440 Balance 440 - Medications Medications: Current Medications Aspirin (Aspirin Chewable) 81 mg PEG DAILY [facility] Last Admin: 12/14/16 10:51 Dose: 81 mg Bethanechol Chloride (Urecholine) 20 mg PEG TID [facility] Last Admin: 12/14/16 13:27 Dose: 20 mg Carvedilol (Coreg) 3.125 mg PEG BID [facility] Last Admin: 12/14/16 11:40 Dose: Not Given Ciprofloxacin (Cipro) 500 mg PEG Q12H [facility] Last Admin: 12/14/16 10:52 Dose: 500 mg Clopidogrel Bisulfate (Plavix) 75 mg PO DAILY [facility] Last Admin: 12/14/16 10:51 Dose: 75 mg Enoxaparin Sodium (Lovenox) 40 mg SC DAILY [facility] Last Admin: 12/14/16 10:51 Dose: 40 mg Famotidine (Pepcid) 20 mg PEG BID [facility] Last Admin: 12/14/16 10:51 Dose: 20 mg Finasteride (Proscar) 5 mg PEG DAILY [facility] Last Admin: 12/14/16 10:51 Dose: 5 mg Levetiracetam (Keppra) 500 mg PEG BID [facility] Last Admin: 12/14/16 11:15 Dose: 500 mg Tamsulosin HCl (Flomax) 0.8 mg PEG DAILY [facility] Last Admin: 12/14/16 10:51 Dose: 0.8 mg - Labs Labs: 12/14/16 10:01 12/14/16 10:01 PT 10.6 SECONDS (9.7-12.2) 11/24/15 14:10 INR 1.0 11/24/15 14:10 APTT 25 SECONDS (21-34) 11/24/15 14:10 Attending/Attestation - Attestation I have personally seen and examined this patient.: Yes I have fully participated in the care of the patient.: Yes I have reviewed all pertinent clinical information, including history, physical exam and plan: Yes Notes (Text): 12/14/16 14:17 Patient seen and examined at bedside There is no change in clinical condition Continue current management Awaiting placement
[2016-12-14 10:05] LABS: BASO # 0.1 K/uL (0.0-0.2); BASO % 0.5 % (0.0-2.0); EOS # 0.3 K/uL (0.0-0.7); EOS % 2.5 % (0.0-4.0); HEMOGLOBIN 12.4 g/dL (12.0-18.0); LYMPH # 2.2 K/uL (1.0-4.3); LYMPH % 20.6 % (20.0-40.0); MEAN CORPUSCULAR HEMOGLOBIN 28.2 pg (27.0-31.0); MEAN CORPUSCULAR HGB CONC 32.4 g/dL (33.0-37.0); MEAN PLATELET VOLUME 8.7 fL (7.2-11.7); MONO # 1.1 K/uL (0.0-0.8); MONO % 9.7 % (0.0-10.0); NEUT # 7.2 K/uL (1.8-7.0); NEUT % 66.7 % (50.0-75.0); RBC 4.41 Mil/uL (4.40-5.90); RED CELL DISTRIBUTION WIDTH 15.5 % (11.5-14.5); WHITE BLOOD COUNT 10.8 K/uL (4.8-10.8)
[2016-12-14 10:20] LABS: ALBUMIN 3.6 g/dL (3.5-5.0)
[2016-12-14 10:23] LABS: ALB/GLOB RATIO 0.9 (1.0-2.1); AST/SGOT 27 U/L (17-59); BLOOD UREA NITROGEN 23 mg/dL (9-20); GFR NON-AFRICAN AMERICAN > 60
[2016-12-14 10:24] LABS: ALT/SGPT 71 U/L (21-72); CALCIUM 8.7 mg/dl (8.6-10.4)
[2016-12-14] MEDS: Enoxaparin 40 mg Syringe SC SCH (10:51)
[2016-12-14] MEDS: levETIRAcetam 100 mg/ml (5ml) Oral Syringe PEG SCH ×2 (11:15→17:24)
[2016-12-15] MEDS: Enoxaparin 40 mg Syringe SC SCH (10:45)
[2016-12-15] MEDS: levETIRAcetam 100 mg/ml (5ml) Oral Syringe PEG SCH ×2 (10:55→17:20)
--- NOTE | 2016-12-15 16:57 | CP.PCM.PN ---
<May Robles - Last Filed: 12/15/16 16:54> Subjective - Date & Time of Evaluation Date of Evaluation: 12/15/16 Time of Evaluation: 16:54 - Subjective Subjective: Medicine progress note Patient seen at bedside. Nonverbal. Currently being treated for GNR in the urine. No acute overnight events. Objective - Vital Signs/Intake and Output Vital Signs (last 24 hours): Temp Pulse Resp BP Pulse Ox 98.2 F 88 20 102/70 98 12/15/16 08:03 12/15/16 08:03 12/15/16 08:03 12/15/16 08:03 12/15/16 08:03 Intake and Output: 12/15/16 12/15/16 06:59 18:59 Intake Total 580 880 Output Total 200 300 Balance 380 580 - Medications Medications: Current Medications Aspirin (Aspirin Chewable) 81 mg PEG DAILY [facility] Last Admin: 12/15/16 10:55 Dose: 81 mg Bethanechol Chloride (Urecholine) 20 mg PEG TID [facility] Last Admin: 12/15/16 10:45 Dose: 20 mg Carvedilol (Coreg) 3.125 mg PEG BID [facility] Last Admin: 12/15/16 10:45 Dose: 3.125 mg Ciprofloxacin (Cipro) 500 mg PEG Q12H [facility] Last Admin: 12/14/16 21:29 Dose: 500 mg Clopidogrel Bisulfate (Plavix) 75 mg PO DAILY [facility] Last Admin: 12/15/16 10:50 Dose: 75 mg Enoxaparin Sodium (Lovenox) 40 mg SC DAILY [facility] Last Admin: 12/15/16 10:45 Dose: 40 mg Famotidine (Pepcid) 20 mg PEG BID [facility] Last Admin: 12/15/16 10:50 Dose: 20 mg Finasteride (Proscar) 5 mg PEG DAILY [facility] Last Admin: 12/15/16 10:50 Dose: 5 mg Levetiracetam (Keppra) 500 mg PEG BID [facility] Last Admin: 12/15/16 10:55 Dose: 500 mg Tamsulosin HCl (Flomax) 0.8 mg PEG DAILY [facility] Last Admin: 12/15/16 10:55 Dose: 0.8 mg - Labs Labs: 12/14/16 10:01 12/14/16 10:01 PT 10.6 SECONDS (9.7-12.2) 11/24/15 14:10 INR 1.0 11/24/15 14:10 APTT 25 SECONDS (21-34) 11/24/15 14:10 - Constitutional Appears: Chronically Ill - Head Exam Head Exam: NORMAL INSPECTION, NORMOCEPHALIC - Eye Exam Eye Exam: EOMI, Normal appearance - Neck Exam Additional comments: +trach collar - Respiratory Exam Respiratory Exam: Rhonchi. absent: Rales, Wheezes - Cardiovascular Exam Cardiovascular Exam: REGULAR RHYTHM. absent: Murmur - GI/Abdominal Exam GI & Abdominal Exam: Soft Additional comments: +PEG - Extremities Exam Extremities Exam: Normal Inspection. absent: Pedal Edema - Back Exam Additional comments: Small 1 cm stage 1 pressure ulcer. - Neurological Exam Neurological Exam: Alert, Oriented x3 - Psychiatric Exam Psychiatric exam: Normal Affect, Normal Mood - Skin Skin Exam: Dry, Warm Assessment and Plan - Assessment and Plan (Free Text) Assessment: Anoxic encephalopathy Continue weekly labs on Mondays. Prognosis poor. 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 Currently being treated with cipro. Waiting one sensitivities. 12/12/2016: UTI is resolved. Completed antibiotics Urine Culture 12/03/16 - Positive Kleb pneumo, sensitive to cipro PO cipro 500 mg q12h to complete 7 days (Started 12/07/16) prior - reddish fluid around the urethra Urinary Retention Patient has a Yoo's catheter. f/u repeat urine C&S Restart Flomax 0.8mg PEG daily Proscar 5mg PO daily Bethanecol 20 mg PO TID- started after persistent retention (before current UTI ) and found to be effective. monitor I's and O's Failure to thrive Continue feeding. Patient is tolerating the feeds 100cc of free water flush q8H Measure weight weekly. Continue to monitor Respiratory failure trach collar in place - normal resp pattern, thick secretions CAD (coronary artery disease) s/p cardiac stents on 06/13/15 ASA 81mg via PEG daily Coreg 3.125mg PEG BID Plavix 75mg PO Daily Seizures Keppra 500mg PEG BID for seizure prophylaxis Lower extremity edema Lasix via PEG as needed. Administered. Sacral Ulcers 12/12/2016: Sacral ulcer is healed Continue frequent turning, protective ointment and skin checks. Stage I ulcer present, about 2 cm in length at upper sacral crease; area frequently alternates between Stage I and healed ulcer. 11/21: Apply ointment daily to sacral area to prevent ulceration Prophylactic measure Pepcid 20 mg PEG BID renewed Lovenox 40mg SC daily SCDs and offloading boots <Nathaniel Beth - Last Filed: 12/24/16 11:59> Objective - Vital Signs/Intake and Output Vital Signs (last 24 hours): Temp Pulse Resp BP Pulse Ox 98.6 F 92 H 20 126/93 H 97 12/24/16 07:50 12/24/16 07:50 12/24/16 07:50 12/24/16 07:50 12/24/16 07:50 Intake and Output: 12/24/16 12/24/16 06:59 18:59 Intake Total 1660 Output Total 1500 Balance 160 - Medications Medications: Current Medications Aspirin (Aspirin Chewable) 81 mg PEG DAILY [facility] Last Admin: 12/24/16 11:02 Dose: 81 mg Bethanechol Chloride (Urecholine) 20 mg PEG TID [facility] Last Admin: 12/24/16 11:03 Dose: 20 mg Carvedilol (Coreg) 3.125 mg PEG BID [facility] Last Admin: 12/24/16 11:02 Dose: 3.125 mg Clopidogrel Bisulfate (Plavix) 75 mg PO DAILY [facility] Last Admin: 12/24/16 11:02 Dose: 75 mg Enoxaparin Sodium (Lovenox) 40 mg SC DAILY [facility] Last Admin: 12/24/16 11:03 Dose: 40 mg Famotidine (Pepcid) 20 mg PEG BID [facility] Last Admin: 12/24/16 11:03 Dose: 20 mg Finasteride (Proscar) 5 mg PEG DAILY [facility] Last Admin: 12/24/16 11:02 Dose: 5 mg Levetiracetam (Keppra) 500 mg PEG BID [facility] Last Admin: 12/24/16 11:02 Dose: 500 mg Tamsulosin HCl (Flomax) 0.8 mg PEG DAILY [facility] Last Admin: 12/24/16 11:02 Dose: 0.8 mg - Labs Labs: 12/21/16 07:39 12/21/16 07:39 PT 10.6 SECONDS (9.7-12.2) 11/24/15 14:10 INR 1.0 11/24/15 14:10 APTT 25 SECONDS (21-34) 11/24/15 14:10 Attending/Attestation - Attestation I have personally seen and examined this patient.: Yes I have fully participated in the care of the patient.: Yes I have reviewed all pertinent clinical information, including history, physical exam and plan: Yes Notes (Text): Anoxic encephalopathy - Chronic, at baseline, no improvement; CAD s/p stent - continue ASA and plavix; coreg; Recurrent UTI - on cipro for klebsiella uti (7 days course already complete); repeat UCx showing gram neg patsy, awaiting sensitivities; Sacral decubitus ulcer stage I - continue frequent repositioning and protective ointment;
[2016-12-16] MEDS: levETIRAcetam 100 mg/ml (5ml) Oral Syringe PEG SCH ×2 (10:28→17:53)
[2016-12-16] MEDS: Enoxaparin 40 mg Syringe SC SCH (10:38)
--- NOTE | 2016-12-16 14:41 | CP.PCM.PN ---
<May Robles - Last Filed: 12/16/16 14:37> Subjective - Date & Time of Evaluation Date of Evaluation: 12/16/16 Time of Evaluation: 14:37 - Subjective Subjective: Medicine progress note Patient seen at bedside. No acute changes. Urine culture positive with Proteus. Reviewed sensitivities. Will consult ID. Objective - Vital Signs/Intake and Output Vital Signs (last 24 hours): Temp Pulse Resp BP Pulse Ox 98.2 F 80 19 106/71 100 12/16/16 08:05 12/16/16 08:05 12/16/16 08:05 12/16/16 08:05 12/16/16 08:05 Intake and Output: 12/16/16 12/16/16 06:59 18:59 Intake Total 1510 Output Total 650 150 Balance 860 -150 - Medications Medications: Current Medications Aspirin (Aspirin Chewable) 81 mg PEG DAILY [facility] Last Admin: 12/16/16 10:28 Dose: 81 mg Bethanechol Chloride (Urecholine) 20 mg PEG TID [facility] Last Admin: 12/16/16 14:35 Dose: 20 mg Carvedilol (Coreg) 3.125 mg PEG BID [facility] Last Admin: 12/16/16 10:29 Dose: 3.125 mg Ciprofloxacin (Cipro) 500 mg PEG Q12H [facility] Last Admin: 12/16/16 10:38 Dose: 500 mg Clopidogrel Bisulfate (Plavix) 75 mg PO DAILY [facility] Last Admin: 12/16/16 10:29 Dose: 75 mg Enoxaparin Sodium (Lovenox) 40 mg SC DAILY [facility] Last Admin: 12/16/16 10:38 Dose: 40 mg Famotidine (Pepcid) 20 mg PEG BID [facility] Last Admin: 12/16/16 10:29 Dose: 20 mg Finasteride (Proscar) 5 mg PEG DAILY [facility] Last Admin: 12/16/16 10:29 Dose: 5 mg Levetiracetam (Keppra) 500 mg PEG BID [facility] Last Admin: 12/16/16 10:28 Dose: 500 mg Tamsulosin HCl (Flomax) 0.8 mg PEG DAILY [facility] Last Admin: 12/16/16 10:29 Dose: 0.8 mg - Labs Labs: 12/14/16 10:01 12/14/16 10:01 PT 10.6 SECONDS (9.7-12.2) 11/24/15 14:10 INR 1.0 11/24/15 14:10 APTT 25 SECONDS (21-34) 11/24/15 14:10 - Constitutional Appears: Chronically Ill - Head Exam Head Exam: NORMAL INSPECTION, NORMOCEPHALIC - Eye Exam Eye Exam: Normal appearance - ENT Exam ENT Exam: Mucous Membranes Moist Additional comments: + trach collar, no secretions noted - Respiratory Exam Respiratory Exam: Rales, Rhonchi - Cardiovascular Exam Cardiovascular Exam: REGULAR RHYTHM - GI/Abdominal Exam GI & Abdominal Exam: Soft. absent: Tenderness Additional comments: + PEG, no drainage. - Exam Additional comments: + baker - Extremities Exam Additional comments: atrophic lower extremities. Assessment and Plan - Assessment and Plan (Free Text) Assessment: Anoxic encephalopathy Continue weekly labs on Mondays. Prognosis poor. 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 Resistant to many antibiotics. Will reconsult ID: Dr Walden for recommendations. 12/12/2016: UTI is resolved. Completed antibiotics previous Urine Culture 12/03/16 - Positive Kleb pneumo, sensitive to cipro, completed course Urinary Retention Patient has a Baker's catheter Restart Flomax 0.8mg PEG daily Proscar 5mg PO daily Bethanecol 20 mg PO TID- started after persistent retention monitor I's and O's Failure to thrive Continue feeding. Patient is tolerating the feeds 100cc of free water flush q8H Measure weight weekly. Continue to monitor Respiratory failure trach collar in place - normal resp pattern, thick secretions CAD (coronary artery disease) s/p cardiac stents on 06/13/15 ASA 81mg via PEG daily Coreg 3.125mg PEG BID Plavix 75mg PO Daily Seizures Keppra 500mg PEG BID for seizure prophylaxis Lower extremity edema Lasix via PEG as needed. Administered. Sacral Ulcers 12/12/2016: Sacral ulcer is healed Continue frequent turning, protective ointment and skin checks. Stage I ulcer present, about 2 cm in length at upper sacral crease; area frequently alternates between Stage I and healed ulcer. 11/21: Apply ointment daily to sacral area to prevent ulceration Prophylactic measure Pepcid 20 mg PEG BID renewed Lovenox 40mg SC daily SCDs and offloading boots <Nathaniel Beth - Last Filed: 12/24/16 12:01> Objective - Vital Signs/Intake and Output Vital Signs (last 24 hours): Temp Pulse Resp BP Pulse Ox 98.6 F 92 H 20 126/93 H 97 12/24/16 07:50 12/24/16 07:50 12/24/16 07:50 12/24/16 07:50 12/24/16 07:50 Intake and Output: 12/24/16 12/24/16 06:59 18:59 Intake Total 1660 Output Total 1500 Balance 160 - Medications Medications: Current Medications Aspirin (Aspirin Chewable) 81 mg PEG DAILY [facility] Last Admin: 12/24/16 11:02 Dose: 81 mg Bethanechol Chloride (Urecholine) 20 mg PEG TID [facility] Last Admin: 12/24/16 11:03 Dose: 20 mg Carvedilol (Coreg) 3.125 mg PEG BID [facility] Last Admin: 12/24/16 11:02 Dose: 3.125 mg Clopidogrel Bisulfate (Plavix) 75 mg PO DAILY [facility] Last Admin: 12/24/16 11:02 Dose: 75 mg Enoxaparin Sodium (Lovenox) 40 mg SC DAILY [facility] Last Admin: 12/24/16 11:03 Dose: 40 mg Famotidine (Pepcid) 20 mg PEG BID [facility] Last Admin: 12/24/16 11:03 Dose: 20 mg Finasteride (Proscar) 5 mg PEG DAILY [facility] Last Admin: 12/24/16 11:02 Dose: 5 mg Levetiracetam (Keppra) 500 mg PEG BID [facility] Last Admin: 12/24/16 11:02 Dose: 500 mg Tamsulosin HCl (Flomax) 0.8 mg PEG DAILY [facility] Last Admin: 12/24/16 11:02 Dose: 0.8 mg - Labs Labs: 12/21/16 07:39 12/21/16 07:39 PT 10.6 SECONDS (9.7-12.2) 11/24/15 14:10 INR 1.0 11/24/15 14:10 APTT 25 SECONDS (21-34) 11/24/15 14:10 Attending/Attestation - Attestation I have personally seen and examined this patient.: Yes I have fully participated in the care of the patient.: Yes I have reviewed all pertinent clinical information, including history, physical exam and plan: Yes Notes (Text): Anoxic encephalopathy - Chronic, at baseline, no improvement; CAD s/p stent - continue ASA and plavix; coreg; Recurrent UTI - Repeat culture showing proteus, sensitive only to aminoglycosides, will get ID f/u; Sacral decubitus ulcer stage I - continue frequent repositioning and protective ointment;
[2016-12-17] MEDS: Enoxaparin 40 mg Syringe SC SCH (10:36)
[2016-12-17] MEDS: levETIRAcetam 100 mg/ml (5ml) Oral Syringe PEG SCH ×2 (10:39→18:12)
--- NOTE | 2016-12-17 13:46 | CP.PCM.PN ---
<May Robles - Last Filed: 12/17/16 13:50> Subjective - Date & Time of Evaluation Date of Evaluation: 12/17/16 Time of Evaluation: 13:45 - Subjective Subjective: Medicine progress note Patient seen at bedside. No acute overnight events per nursing. Urine culture positive for proteus, reconsulted ID. No fevers overnight. Objective - Vital Signs/Intake and Output Vital Signs (last 24 hours): Temp Pulse Resp BP Pulse Ox 97.4 F L 83 18 131/81 100 12/17/16 08:00 12/17/16 08:00 12/17/16 08:00 12/17/16 08:00 12/17/16 08:00 Intake and Output: 12/17/16 12/17/16 06:59 18:59 Intake Total 680 Output Total 700 Balance -20 - Medications Medications: Current Medications Aspirin (Aspirin Chewable) 81 mg PEG DAILY [facility] Last Admin: 12/17/16 10:37 Dose: 81 mg Bethanechol Chloride (Urecholine) 20 mg PEG TID [facility] Last Admin: 12/17/16 10:37 Dose: 20 mg Carvedilol (Coreg) 3.125 mg PEG BID [facility] Last Admin: 12/17/16 10:39 Dose: 3.125 mg Ciprofloxacin (Cipro) 500 mg PEG Q12H [facility] Last Admin: 12/17/16 10:38 Dose: 500 mg Clopidogrel Bisulfate (Plavix) 75 mg PO DAILY [facility] Last Admin: 12/17/16 10:37 Dose: 75 mg Enoxaparin Sodium (Lovenox) 40 mg SC DAILY [facility] Last Admin: 12/17/16 10:36 Dose: 40 mg Famotidine (Pepcid) 20 mg PEG BID [facility] Last Admin: 12/17/16 10:37 Dose: 20 mg Finasteride (Proscar) 5 mg PEG DAILY [facility] Last Admin: 12/17/16 10:37 Dose: 5 mg Levetiracetam (Keppra) 500 mg PEG BID [facility] Last Admin: 12/17/16 10:39 Dose: 500 mg Tamsulosin HCl (Flomax) 0.8 mg PEG DAILY [facility] Last Admin: 12/17/16 10:37 Dose: 0.8 mg - Labs Labs: 12/14/16 10:01 12/14/16 10:01 PT 10.6 SECONDS (9.7-12.2) 11/24/15 14:10 INR 1.0 11/24/15 14:10 APTT 25 SECONDS (21-34) 11/24/15 14:10 - Constitutional Appears: Well, No Acute Distress, Chronically Ill - Head Exam Head Exam: NORMAL INSPECTION, NORMOCEPHALIC - Neck Exam Additional comments: trach collar appears well - Respiratory Exam Respiratory Exam: Rhonchi, NORMAL BREATHING PATTERN. absent: Rales, Wheezes - Cardiovascular Exam Cardiovascular Exam: REGULAR RHYTHM - GI/Abdominal Exam GI & Abdominal Exam: Soft. absent: Tenderness Additional comments: PEG tube site looks well, no drainage. - Extremities Exam Extremities Exam: absent: Pedal Edema Additional comments: atrophic lower extremities. - Neurological Exam Neurological Exam: absent: Alert, Oriented x3 - Skin Skin Exam: absent: Dry Assessment and Plan - Assessment and Plan (Free Text) Assessment: UTI Urine culture: + Proteus. Resistant to many antibiotics. Will reconsult ID: Dr Walden for recommendations. 12/12/2016: UTI is resolved. Completed antibiotics previous Urine Culture 12/03/16 - Positive Kleb pneumo, sensitive to cipro, completed course Anoxic encephalopathy Continue weekly labs on Mondays. Prognosis poor. 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 Patient is tolerating the feeds 100cc of free water flush q8H Measure weight weekly. Continue to monitor Respiratory failure trach collar in place - normal resp pattern, thick secretions CAD (coronary artery disease) s/p cardiac stents on 06/13/15 ASA 81mg via PEG daily Coreg 3.125mg PEG BID Plavix 75mg PO Daily Seizures Keppra 500mg PEG BID for seizure prophylaxis Lower extremity edema Lasix via PEG as needed. Administered. Sacral Ulcers 12/12/2016: Sacral ulcer is healed Continue frequent turning, protective ointment and skin checks. Stage I ulcer present, about 2 cm in length at upper sacral crease; area frequently alternates between Stage I and healed ulcer. 11/21: Apply ointment daily to sacral area to prevent ulceration Prophylactic measure Pepcid 20 mg PEG BID renewed Lovenox 40mg SC daily SCDs and offloading boots Plan: Pending ID farhan. <Nathaniel Beth - Last Filed: 12/24/16 12:02> Objective - Vital Signs/Intake and Output Vital Signs (last 24 hours): Temp Pulse Resp BP Pulse Ox 98.6 F 92 H 20 126/93 H 97 12/24/16 07:50 12/24/16 07:50 12/24/16 07:50 12/24/16 07:50 12/24/16 07:50 Intake and Output: 12/24/16 12/24/16 06:59 18:59 Intake Total 1660 Output Total 1500 Balance 160 - Medications Medications: Current Medications Aspirin (Aspirin Chewable) 81 mg PEG DAILY [facility] Last Admin: 12/24/16 11:02 Dose: 81 mg Bethanechol Chloride (Urecholine) 20 mg PEG TID [facility] Last Admin: 12/24/16 11:03 Dose: 20 mg Carvedilol (Coreg) 3.125 mg PEG BID [facility] Last Admin: 12/24/16 11:02 Dose: 3.125 mg Clopidogrel Bisulfate (Plavix) 75 mg PO DAILY [facility] Last Admin: 12/24/16 11:02 Dose: 75 mg Enoxaparin Sodium (Lovenox) 40 mg SC DAILY [facility] Last Admin: 12/24/16 11:03 Dose: 40 mg Famotidine (Pepcid) 20 mg PEG BID [facility] Last Admin: 12/24/16 11:03 Dose: 20 mg Finasteride (Proscar) 5 mg PEG DAILY [facility] Last Admin: 12/24/16 11:02 Dose: 5 mg Levetiracetam (Keppra) 500 mg PEG BID [facility] Last Admin: 12/24/16 11:02 Dose: 500 mg Tamsulosin HCl (Flomax) 0.8 mg PEG DAILY [facility] Last Admin: 12/24/16 11:02 Dose: 0.8 mg - Labs Labs: 12/21/16 07:39 12/21/16 07:39 PT 10.6 SECONDS (9.7-12.2) 11/24/15 14:10 INR 1.0 11/24/15 14:10 APTT 25 SECONDS (21-34) 11/24/15 14:10 Attending/Attestation - Attestation I have personally seen and examined this patient.: Yes I have fully participated in the care of the patient.: Yes I have reviewed all pertinent clinical information, including history, physical exam and plan: Yes Notes (Text): Anoxic encephalopathy - Chronic, at baseline, no improvement; CAD s/p stent - continue ASA and plavix; coreg; Recurrent UTI - to start on continuous bladder irrigation for 3 weeks per ID; will not treat with abx; Sacral decubitus ulcer stage I - continue frequent repositioning and protective ointment;
--- NOTE | 2016-12-17 18:08 | CP.PCM.CON ---
History of Present Illness - History of Present Illness History of Present Illness: 66 yo male with Hypoxic encephalopathy referred for ID eval - recurrent UTI Multiple MDRO in past Review of Systems - Review of Systems Systems not reviewed;Unavailable: Altered Mental Status Past Patient History - Tetanus Immunizations Tetanus Immunization: Unknown - Past Medical History & Family History Past Medical History?: Yes - Past Social History Smoking Status: Never Smoked Alcohol: None Drugs: Denies - CARDIAC Hx Cardiac Disorders: Yes (unknown condition diagnosed in [place] 15 years ago) - MUSCULOSKELETAL/RHEUMATOLOGICAL Hx Falls: Yes - PSYCHIATRIC Hx Substance Use: No - ANESTHESIA Hx Anesthesia: No Hx Anesthesia Reactions: No Hx Malignant Hyperthermia: No Has any member of the family had a problem w/ anesthesia?: No Meds Allergies/Adverse Reactions: Allergies Allergy/AdvReac Type Severity Reaction Status Date / Time No Known Allergies Allergy Unverified 06/13/15 20:57 - Medications Medications: Current Medications Aspirin (Aspirin Chewable) 81 mg PEG DAILY [facility] Last Admin: 12/17/16 10:37 Dose: 81 mg Bethanechol Chloride (Urecholine) 20 mg PEG TID [facility] Last Admin: 12/17/16 14:19 Dose: 20 mg Carvedilol (Coreg) 3.125 mg PEG BID [facility] Last Admin: 12/17/16 10:39 Dose: 3.125 mg Ciprofloxacin (Cipro) 500 mg PEG Q12H [facility] Last Admin: 12/17/16 10:38 Dose: 500 mg Clopidogrel Bisulfate (Plavix) 75 mg PO DAILY [facility] Last Admin: 12/17/16 10:37 Dose: 75 mg Enoxaparin Sodium (Lovenox) 40 mg SC DAILY [facility] Last Admin: 12/17/16 10:36 Dose: 40 mg Famotidine (Pepcid) 20 mg PEG BID [facility] Last Admin: 12/17/16 10:37 Dose: 20 mg Finasteride (Proscar) 5 mg PEG DAILY [facility] Last Admin: 12/17/16 10:37 Dose: 5 mg Levetiracetam (Keppra) 500 mg PEG BID [facility] Last Admin: 12/17/16 10:39 Dose: 500 mg Tamsulosin HCl (Flomax) 0.8 mg PEG DAILY [facility] Last Admin: 12/17/16 10:37 Dose: 0.8 mg Physical Exam - Constitutional Appears: Chronically Ill - Head Exam Head Exam: NORMAL INSPECTION - Eye Exam Eye Exam: PERRL. absent: Scleral icterus - ENT Exam ENT Exam: Mucous Membranes Dry - Neck Exam Neck exam: Negative for: Lymphadenopathy - Respiratory Exam Respiratory Exam: Decreased Breath Sounds - Cardiovascular Exam Cardiovascular Exam: REGULAR RHYTHM, +S1, +S2 - GI/Abdominal Exam GI & Abdominal Exam: Diminished Bowel Sounds, Soft. absent: Tenderness - Rectal Exam Rectal Exam: Deferred - Exam Exam: NORMAL INSPECTION Additional comments: suprapubic - Extremities Exam Extremities exam: Negative for: pedal edema - Back Exam Back exam: absent: CVA tenderness (L), CVA tenderness (R) - Neurological Exam Neurological exam: Altered - Psychiatric Exam Psychiatric exam: Depressed Results - Vital Signs Recent Vital Signs: Last Vital Signs Temp 98.1 F 12/17/16 16:00 Pulse 77 12/17/16 16:46 Resp 20 12/17/16 16:00 BP 92/62 L 12/17/16 16:00 Pulse Ox 99 12/17/16 16:00 - Labs Result Diagrams: 12/14/16 10:01 12/14/16 10:01 Labs: Laboratory Results - last 24 hr 12/16/16 12/17/16 12/17/16 21:30 07:25 11:09 POC Glucose (mg/dL) 135 H 107 112 H 12/17/16 16:07 POC Glucose (mg/dL) 139 H Assessment & Plan - Assessment and Plan (Free Text) Assessment: consider 3 way baker with bladder irrigation for 3 weeks Plan: recc eval
--- NOTE | 2016-12-18 10:19 | CP.PCM.PN ---
Subjective - Date & Time of Evaluation Date of Evaluation: 12/18/16 Time of Evaluation: 10:16 - Subjective Subjective: Discussed with hospatilist, pt with recurrent uti who has anoxic brain damage, and in coma for two years, See no reason for urological intervention,since the pt has no chance for recovery. pt may be treated for + culture by [email or web address] transfering pt to hospice. Johnna Objective - Vital Signs/Intake and Output Vital Signs (last 24 hours): Temp Pulse Resp BP Pulse Ox 98.5 F 88 18 105/71 96 12/18/16 08:00 12/18/16 08:55 12/18/16 08:00 12/18/16 08:00 12/18/16 08:00 Intake and Output: 12/18/16 12/18/16 06:59 18:59 Intake Total 1510 Output Total 1900 Balance -390 - Medications Medications: Current Medications Aspirin (Aspirin Chewable) 81 mg PEG DAILY [facility] Last Admin: 12/17/16 10:37 Dose: 81 mg Bethanechol Chloride (Urecholine) 20 mg PEG TID [facility] Last Admin: 12/17/16 18:14 Dose: 20 mg Carvedilol (Coreg) 3.125 mg PEG BID [facility] Last Admin: 12/17/16 18:12 Dose: 3.125 mg Clopidogrel Bisulfate (Plavix) 75 mg PO DAILY [facility] Last Admin: 12/17/16 10:37 Dose: 75 mg Enoxaparin Sodium (Lovenox) 40 mg SC DAILY [facility] Last Admin: 12/17/16 10:36 Dose: 40 mg Famotidine (Pepcid) 20 mg PEG BID [facility] Last Admin: 12/17/16 18:12 Dose: 20 mg Finasteride (Proscar) 5 mg PEG DAILY [facility] Last Admin: 12/17/16 10:37 Dose: 5 mg Levetiracetam (Keppra) 500 mg PEG BID [facility] Last Admin: 12/17/16 18:12 Dose: 500 mg Tamsulosin HCl (Flomax) 0.8 mg PEG DAILY [facility] Last Admin: 12/17/16 10:37 Dose: 0.8 mg - Labs Labs: 12/14/16 10:01 12/14/16 10:01 PT 10.6 SECONDS (9.7-12.2) 11/24/15 14:10 INR 1.0 11/24/15 14:10 APTT 25 SECONDS (21-34) 11/24/15 14:10
[2016-12-18] MEDS: levETIRAcetam 100 mg/ml (5ml) Oral Syringe PEG SCH ×2 (12:38→18:36)
[2016-12-18] MEDS: Enoxaparin 40 mg Syringe SC SCH (12:39)
--- NOTE | 2016-12-18 17:22 | CP.PCM.PN ---
Subjective - Date & Time of Evaluation Date of Evaluation: 12/18/16 Time of Evaluation: 17:21 - Subjective Subjective: Patient with purposeless movements; Objective - Vital Signs/Intake and Output Vital Signs (last 24 hours): Temp Pulse Resp BP Pulse Ox 98.1 F 92 H 20 106/69 97 12/18/16 16:05 12/18/16 16:05 12/18/16 16:05 12/18/16 16:05 12/18/16 16:05 Intake and Output: 12/18/16 12/18/16 06:59 18:59 Intake Total 1510 Output Total 1900 Balance -390 - Medications Medications: Current Medications Aspirin (Aspirin Chewable) 81 mg PEG DAILY [facility] Last Admin: 12/18/16 12:37 Dose: 81 mg Bethanechol Chloride (Urecholine) 20 mg PEG TID [facility] Last Admin: 12/18/16 13:24 Dose: 20 mg Carvedilol (Coreg) 3.125 mg PEG BID [facility] Last Admin: 12/18/16 10:00 Dose: Not Given Clopidogrel Bisulfate (Plavix) 75 mg PO DAILY [facility] Last Admin: 12/18/16 12:38 Dose: 75 mg Enoxaparin Sodium (Lovenox) 40 mg SC DAILY [facility] Last Admin: 12/18/16 12:39 Dose: 40 mg Famotidine (Pepcid) 20 mg PEG BID [facility] Last Admin: 12/18/16 12:39 Dose: 20 mg Finasteride (Proscar) 5 mg PEG DAILY [facility] Last Admin: 12/18/16 12:39 Dose: 5 mg Levetiracetam (Keppra) 500 mg PEG BID [facility] Last Admin: 12/18/16 12:38 Dose: 500 mg Tamsulosin HCl (Flomax) 0.8 mg PEG DAILY [facility] Last Admin: 12/18/16 12:38 Dose: 0.8 mg - Labs Labs: 12/14/16 10:01 12/14/16 10:01 PT 10.6 SECONDS (9.7-12.2) 11/24/15 14:10 INR 1.0 11/24/15 14:10 APTT 25 SECONDS (21-34) 11/24/15 14:10 - Constitutional Appears: Non-toxic, No Acute Distress - Head Exam Head Exam: NORMAL INSPECTION - Eye Exam Eye Exam: Normal appearance - ENT Exam ENT Exam: Mucous Membranes Moist - Neck Exam Neck Exam: Normal Inspection Additional comments: s/p tracheostomy; - Respiratory Exam Respiratory Exam: Clear to Ausculation Bilateral, NORMAL BREATHING PATTERN - Cardiovascular Exam Cardiovascular Exam: REGULAR RHYTHM, +S1, +S2 - GI/Abdominal Exam GI & Abdominal Exam: Soft. absent: Distended - Extremities Exam Extremities Exam: absent: Pedal Edema - Neurological Exam Neurological Exam: Awake. absent: Alert - Skin Skin Exam: Warm. absent: Cyanosis Assessment and Plan - Assessment and Plan (Free Text) Assessment: Anoxic encephalopathy - Chronic, at baseline, no improvement; CAD s/p stent - continue ASA and plavix; coreg; Recurrent UTI - started on continuous bladder irrigation for 3 weeks per ID; not on abx; Sacral decubitus ulcer stage I - continue frequent repositioning and protective ointment;
--- NOTE | 2016-12-18 19:18 | CP.PCM.PN ---
Subjective - Date & Time of Evaluation Date of Evaluation: 12/18/16 Time of Evaluation: 09:00 - Subjective Subjective: intended to insert 3 way baker to treat UTI topically and avoid systemic antibiotics this is a palliative measure and not invasive pt is a full code as of now Objective - Vital Signs/Intake and Output Vital Signs (last 24 hours): Temp Pulse Resp BP Pulse Ox 98.1 F 92 H 20 106/69 97 12/18/16 16:05 12/18/16 16:05 12/18/16 16:05 12/18/16 16:05 12/18/16 16:05 - Medications Medications: Current Medications Aspirin (Aspirin Chewable) 81 mg PEG DAILY [facility] Last Admin: 12/18/16 12:37 Dose: 81 mg Bethanechol Chloride (Urecholine) 20 mg PEG TID [facility] Last Admin: 12/18/16 18:36 Dose: 20 mg Carvedilol (Coreg) 3.125 mg PEG BID [facility] Last Admin: 12/18/16 18:36 Dose: 3.125 mg Clopidogrel Bisulfate (Plavix) 75 mg PO DAILY [facility] Last Admin: 12/18/16 12:38 Dose: 75 mg Enoxaparin Sodium (Lovenox) 40 mg SC DAILY [facility] Last Admin: 12/18/16 12:39 Dose: 40 mg Famotidine (Pepcid) 20 mg PEG BID [facility] Last Admin: 12/18/16 18:36 Dose: 20 mg Finasteride (Proscar) 5 mg PEG DAILY [facility] Last Admin: 12/18/16 12:39 Dose: 5 mg Levetiracetam (Keppra) 500 mg PEG BID [facility] Last Admin: 12/18/16 18:36 Dose: 500 mg Tamsulosin HCl (Flomax) 0.8 mg PEG DAILY [facility] Last Admin: 12/18/16 12:38 Dose: 0.8 mg - Labs Labs: 12/14/16 10:01 12/14/16 10:01 PT 10.6 SECONDS (9.7-12.2) 11/24/15 14:10 INR 1.0 11/24/15 14:10 APTT 25 SECONDS (21-34) 11/24/15 14:10 - Constitutional Appears: Non-toxic, Chronically Ill - Head Exam Head Exam: NORMOCEPHALIC - Eye Exam Eye Exam: absent: Scleral icterus - ENT Exam ENT Exam: Mucous Membranes Dry - Neck Exam Neck Exam: absent: Lymphadenopathy - Respiratory Exam Respiratory Exam: Decreased Breath Sounds, Clear to Ausculation Bilateral - Cardiovascular Exam Cardiovascular Exam: REGULAR RHYTHM, +S1, +S2 - GI/Abdominal Exam GI & Abdominal Exam: Distended, Soft
--- NOTE | 2016-12-19 10:17 | CP.PCM.PN ---
<Mariella Wagner - Last Filed: 12/19/16 15:58> Subjective - Date & Time of Evaluation Date of Evaluation: 12/19/16 Time of Evaluation: 09:00 - Subjective Subjective: Medicine Progress Note: Patient seen and examined at bedside this morning. Patient is in no acute distress. As per Dr. Walden, patient with 3 way baker to treat UTI topically and avoid systemic antibiotics. Objective - Vital Signs/Intake and Output Vital Signs (last 24 hours): Temp Pulse Resp BP Pulse Ox 99.1 F 83 20 114/74 96 12/19/16 07:57 12/19/16 07:57 12/19/16 07:57 12/19/16 07:57 12/19/16 07:57 Intake and Output: 12/19/16 12/19/16 06:59 18:59 Intake Total 1560 Output Total 1800 Balance -240 - Medications Medications: Current Medications Aspirin (Aspirin Chewable) 81 mg PEG DAILY [facility] Last Admin: 12/18/16 12:37 Dose: 81 mg Bethanechol Chloride (Urecholine) 20 mg PEG TID [facility] Last Admin: 12/18/16 18:36 Dose: 20 mg Carvedilol (Coreg) 3.125 mg PEG BID [facility] Last Admin: 12/18/16 18:36 Dose: 3.125 mg Clopidogrel Bisulfate (Plavix) 75 mg PO DAILY [facility] Last Admin: 12/18/16 12:38 Dose: 75 mg Enoxaparin Sodium (Lovenox) 40 mg SC DAILY [facility] Last Admin: 12/18/16 12:39 Dose: 40 mg Famotidine (Pepcid) 20 mg PEG BID [facility] Last Admin: 12/18/16 18:36 Dose: 20 mg Finasteride (Proscar) 5 mg PEG DAILY [facility] Last Admin: 12/18/16 12:39 Dose: 5 mg Levetiracetam (Keppra) 500 mg PEG BID [facility] Last Admin: 12/18/16 18:36 Dose: 500 mg Tamsulosin HCl (Flomax) 0.8 mg PEG DAILY [facility] Last Admin: 12/18/16 12:38 Dose: 0.8 mg - Labs Labs: 12/14/16 10:01 12/14/16 10:01 PT 10.6 SECONDS (9.7-12.2) 01/02/16 14:10 INR 1.0 11/24/15 14:10 APTT 25 SECONDS (21-34) 11/24/15 14:10 - Constitutional Appears: No Acute Distress - Head Exam Head Exam: NORMAL INSPECTION, NORMOCEPHALIC - Eye Exam Eye Exam: EOMI, Normal appearance - ENT Exam ENT Exam: Mucous Membranes Moist - Neck Exam Neck Exam: Normal Inspection Additional comments: +trach tube in place - Respiratory Exam Respiratory Exam: Clear to Ausculation Bilateral, NORMAL BREATHING PATTERN - Cardiovascular Exam Cardiovascular Exam: REGULAR RHYTHM, +S1, +S2 - GI/Abdominal Exam GI & Abdominal Exam: Soft. absent: Distended - Extremities Exam Additional comments: +air boots on - Neurological Exam Neurological Exam: Alert, Altered - Psychiatric Exam Psychiatric exam: Flat Affect - Skin Skin Exam: Dry, Normal Color, Warm Assessment and Plan - Assessment and Plan (Free Text) Assessment: 1. UTI Urine culture: + Proteus. Resistant to many antibiotics. Will reconsult ID: Dr Walden for recommendations. As per Dr. Walden, 3 way baker to treat UTI topically and avoid systemic antibiotics, this is a palliative measure and not invasive. 12/12/2016: UTI is resolved. Completed antibiotics previous Urine Culture 12/03/16 - Positive Kleb pneumo, sensitive to cipro, completed course 2. Anoxic encephalopathy Continue weekly labs on Mondays. Pending half-way facility placement Turn Q2 hours- Continue to monitor Isosource feeds through PEG @ reduced rate 60cc/hr per Nutrition recommendations Continue trach suctioning as needed 3. Urinary Retention Patient has a Baker catheter Flomax 0.8mg PEG daily Proscar 5mg PO daily Bethanecol 20 mg PO TID- started after persistent retention monitor I's and O's 4. Failure to thrive Continue feeding. Patient is tolerating the feeds 100cc of free water flush q8H Measure weight weekly. Continue to monitor Respiratory failure trach collar in place - normal resp pattern, thick secretions CAD (coronary artery disease) s/p cardiac stents on 06/13/15 ASA 81mg via PEG daily Coreg 3.125mg PEG BID Plavix 75mg PO Daily Seizures Keppra 500mg PEG BID for seizure prophylaxis Lower extremity edema Lasix via PEG as needed. Administered. Sacral Ulcers 12/12/2016: Sacral ulcer is healed Continue frequent turning, protective ointment and skin checks. Stage I ulcer present, about 2 cm in length at upper sacral crease; area frequently alternates between Stage I and healed ulcer. 11/21: Apply ointment daily to sacral area to prevent ulceration Prophylactic measure Pepcid 20 mg PEG BID renewed Lovenox 40mg SC daily SCDs and offloading boots <Nathaniel Beth - Last Filed: 12/24/16 12:03> Objective - Vital Signs/Intake and Output Vital Signs (last 24 hours): Temp Pulse Resp BP Pulse Ox 98.6 F 92 H 20 126/93 H 97 12/24/16 07:50 12/24/16 07:50 12/24/16 07:50 12/24/16 07:50 12/24/16 07:50 Intake and Output: 12/24/16 12/24/16 06:59 18:59 Intake Total 1660 Output Total 1500 Balance 160 - Medications Medications: Current Medications Aspirin (Aspirin Chewable) 81 mg PEG DAILY [facility] Last Admin: 12/24/16 11:02 Dose: 81 mg Bethanechol Chloride (Urecholine) 20 mg PEG TID [facility] Last Admin: 12/24/16 11:03 Dose: 20 mg Carvedilol (Coreg) 3.125 mg PEG BID [facility] Last Admin: 12/24/16 11:02 Dose: 3.125 mg Clopidogrel Bisulfate (Plavix) 75 mg PO DAILY [facility] Last Admin: 12/24/16 11:02 Dose: 75 mg Enoxaparin Sodium (Lovenox) 40 mg SC DAILY [facility] Last Admin: 12/24/16 11:03 Dose: 40 mg Famotidine (Pepcid) 20 mg PEG BID [facility] Last Admin: 12/24/16 11:03 Dose: 20 mg Finasteride (Proscar) 5 mg PEG DAILY [facility] Last Admin: 12/24/16 11:02 Dose: 5 mg Levetiracetam (Keppra) 500 mg PEG BID [facility] Last Admin: 12/24/16 11:02 Dose: 500 mg Tamsulosin HCl (Flomax) 0.8 mg PEG DAILY [facility] Last Admin: 12/24/16 11:02 Dose: 0.8 mg - Labs Labs: 12/21/16 07:39 12/21/16 07:39 PT 10.6 SECONDS (9.7-12.2) 11/24/15 14:10 INR 1.0 11/24/15 14:10 APTT 25 SECONDS (21-34) 11/24/15 14:10 Attending/Attestation - Attestation I have personally seen and examined this patient.: Yes I have fully participated in the care of the patient.: Yes I have reviewed all pertinent clinical information, including history, physical exam and plan: Yes Notes (Text): Anoxic encephalopathy - Chronic, at baseline, no improvement; CAD s/p stent - continue ASA and plavix; coreg; Recurrent UTI - started on continuous bladder irrigation for 3 weeks per ID; will not treat with abx; Sacral decubitus ulcer stage I - continue frequent repositioning and protective ointment;
[2016-12-19] MEDS: levETIRAcetam 100 mg/ml (5ml) Oral Syringe PEG SCH ×2 (11:40→18:36)
[2016-12-19] MEDS: Enoxaparin 40 mg Syringe SC SCH (11:40)
--- NOTE | 2016-12-20 01:41 | CP.PCM.PN ---
<Waqar Camposa - Last Filed: 12/20/16 01:39> Subjective - Date & Time of Evaluation Date of Evaluation: 12/20/16 Time of Evaluation: 01:40 - Subjective Subjective: PGY-[address] Beth Patient was seen and examined at bedside. Patient resting comfortably. Patient is in no acute distress. As per Dr. Walden, patient with 3 way baker to treat UTI topically and avoid systemic antibiotics. Objective - Vital Signs/Intake and Output Vital Signs (last 24 hours): Temp Pulse Resp BP Pulse Ox 97.8 F 78 20 116/77 98 12/20/16 00:00 12/20/16 00:00 12/20/16 00:00 12/20/16 00:00 12/20/16 00:00 Intake and Output: 12/19/16 12/20/16 18:59 06:59 Intake Total 780 Output Total 500 Balance 280 - Medications Medications: Current Medications Aspirin (Aspirin Chewable) 81 mg PEG DAILY [facility] Last Admin: 12/19/16 11:40 Dose: 81 mg Bethanechol Chloride (Urecholine) 20 mg PEG TID [facility] Last Admin: 12/19/16 20:17 Dose: 20 mg Carvedilol (Coreg) 3.125 mg PEG BID [facility] Last Admin: 12/19/16 18:36 Dose: 3.125 mg Clopidogrel Bisulfate (Plavix) 75 mg PO DAILY [facility] Last Admin: 12/19/16 11:39 Dose: 75 mg Enoxaparin Sodium (Lovenox) 40 mg SC DAILY [facility] Last Admin: 12/19/16 11:40 Dose: 40 mg Famotidine (Pepcid) 20 mg PEG BID [facility] Last Admin: 12/19/16 18:36 Dose: 20 mg Finasteride (Proscar) 5 mg PEG DAILY [facility] Last Admin: 12/19/16 11:40 Dose: 5 mg Levetiracetam (Keppra) 500 mg PEG BID [facility] Last Admin: 12/19/16 18:36 Dose: 500 mg Tamsulosin HCl (Flomax) 0.8 mg PEG DAILY [facility] Last Admin: 12/19/16 11:40 Dose: 0.8 mg - Labs Labs: 12/14/16 10:01 12/14/16 10:01 PT 10.6 SECONDS (9.7-12.2) 11/24/15 14:10 INR 1.0 11/24/15 14:10 APTT 25 SECONDS (21-34) 11/24/15 14:10 - Constitutional Appears: No Acute Distress - Head Exam Head Exam: NORMAL INSPECTION, NORMOCEPHALIC - Neck Exam Additional comments: +trach tube in place - Respiratory Exam Respiratory Exam: Clear to Ausculation Bilateral, NORMAL BREATHING PATTERN. absent: Decreased Breath Sounds, Wheezes - Cardiovascular Exam Cardiovascular Exam: REGULAR RHYTHM, RRR, +S1, +S2 - GI/Abdominal Exam GI & Abdominal Exam: Soft, Normal Bowel Sounds. absent: Distended, Tenderness - Extremities Exam Extremities Exam: Normal Inspection. absent: Pedal Edema, Tenderness - Neurological Exam Neurological Exam: Alert, Altered - Skin Skin Exam: Dry, Intact, Normal Color, Warm Assessment and Plan - Assessment and Plan (Free Text) Plan: 1. UTI Urine culture: + Proteus. Resistant to many antibiotics. Will reconsult ID: Dr Walden for recommendations. As per Dr. Walden, 3 way baker to treat UTI topically and avoid systemic antibiotics, this is a palliative measure and not invasive. 12/12/2016: UTI is resolved. Completed antibiotics previous Urine Culture 12/03/16 - Positive Kleb pneumo, sensitive to cipro, completed course 2. Anoxic encephalopathy Continue weekly labs on Mondays. Pending intermediate project manager facility placement Turn Q2 hours- Continue to monitor Isosource feeds through PEG @ reduced rate 60cc/hr per Nutrition recommendations Continue trach suctioning as needed 3. Urinary Retention Patient has a Baker catheter Flomax 0.8mg PEG daily Proscar 5mg PO daily Bethanecol 20 mg PO TID- started after persistent retention monitor I's and O's 4. Failure to thrive Continue feeding. Patient is tolerating the feeds 100cc of free water flush q8H Measure weight weekly. Continue to monitor Respiratory failure trach collar in place - normal resp pattern, thick secretions CAD (coronary artery disease) s/p cardiac stents on 06/13/15 ASA 81mg via PEG daily Coreg 3.125mg PEG BID Plavix 75mg PO Daily Seizures Keppra 500mg PEG BID for seizure prophylaxis Lower extremity edema Lasix via PEG as needed. Administered. Sacral Ulcers 12/12/2016: Sacral ulcer is healed Continue frequent turning, protective ointment and skin checks. Stage I ulcer present, about 2 cm in length at upper sacral crease; area frequently alternates between Stage I and healed ulcer. 11/21: Apply ointment daily to sacral area to prevent ulceration Prophylactic measure Pepcid 20 mg PEG BID renewed Lovenox 40mg SC daily SCDs and offloading boots DW Beth Modi DO, PGY-1 <Nathaniel Beth - Last Filed: 12/24/16 12:04> Objective - Vital Signs/Intake and Output Vital Signs (last 24 hours): Temp Pulse Resp BP Pulse Ox 98.6 F 92 H 20 126/93 H 97 12/24/16 07:50 12/24/16 07:50 12/24/16 07:50 12/24/16 07:50 12/24/16 07:50 Intake and Output: 12/24/16 12/24/16 06:59 18:59 Intake Total 1660 Output Total 1500 Balance 160 - Medications Medications: Current Medications Aspirin (Aspirin Chewable) 81 mg PEG DAILY [facility] Last Admin: 12/24/16 11:02 Dose: 81 mg Bethanechol Chloride (Urecholine) 20 mg PEG TID [facility] Last Admin: 12/24/16 11:03 Dose: 20 mg Carvedilol (Coreg) 3.125 mg PEG BID [facility] Last Admin: 12/24/16 11:02 Dose: 3.125 mg Clopidogrel Bisulfate (Plavix) 75 mg PO DAILY [facility] Last Admin: 12/24/16 11:02 Dose: 75 mg Enoxaparin Sodium (Lovenox) 40 mg SC DAILY [facility] Last Admin: 12/24/16 11:03 Dose: 40 mg Famotidine (Pepcid) 20 mg PEG BID [facility] Last Admin: 12/24/16 11:03 Dose: 20 mg Finasteride (Proscar) 5 mg PEG DAILY [facility] Last Admin: 12/24/16 11:02 Dose: 5 mg Levetiracetam (Keppra) 500 mg PEG BID [facility] Last Admin: 12/24/16 11:02 Dose: 500 mg Tamsulosin HCl (Flomax) 0.8 mg PEG DAILY [facility] Last Admin: 12/24/16 11:02 Dose: 0.8 mg - Labs Labs: 12/21/16 07:39 12/21/16 07:39 PT 10.6 SECONDS (9.7-12.2) 11/24/15 14:10 INR 1.0 11/24/15 14:10 APTT 25 SECONDS (21-34) 11/24/15 14:10 Attending/Attestation - Attestation I have personally seen and examined this patient.: Yes I have fully participated in the care of the patient.: Yes I have reviewed all pertinent clinical information, including history, physical exam and plan: Yes Notes (Text): Anoxic encephalopathy - Chronic, at baseline, no improvement; CAD s/p stent - continue ASA and plavix; coreg; Recurrent UTI - started on continuous bladder irrigation for 3 weeks per ID; will not treat with abx; Sacral decubitus ulcer stage I - continue frequent repositioning and protective ointment;
[2016-12-20] MEDS: levETIRAcetam 100 mg/ml (5ml) Oral Syringe PEG SCH ×2 (12:38→18:12)
[2016-12-20] MEDS: Enoxaparin 40 mg Syringe SC SCH (12:45)
--- NOTE | 2016-12-20 23:49 | CP.PCM.PN ---
<Waqar Camposa - Last Filed: 12/21/16 00:24> Subjective - Date & Time of Evaluation Date of Evaluation: 12/21/16 Time of Evaluation: 00:30 - Subjective Subjective: PGY-[address] Beth Patient was seen and examined at bedside. Patient resting comfortably. Patient is in no acute distress. As per Dr. Walden, patient with 3 way baker to treat UTI topically and avoid systemic antibiotics. Objective - Vital Signs/Intake and Output Vital Signs (last 24 hours): Temp Pulse Resp BP Pulse Ox 98.3 F 81 20 108/73 97 12/20/16 16:00 12/20/16 16:00 12/20/16 16:00 12/20/16 16:00 12/20/16 16:00 Intake and Output: 12/20/16 12/21/16 18:59 06:59 Intake Total 1560 Output Total 1350 Balance 210 - Medications Medications: Current Medications Aspirin (Aspirin Chewable) 81 mg PEG DAILY [facility] Last Admin: 12/20/16 12:45 Dose: 81 mg Bethanechol Chloride (Urecholine) 20 mg PEG TID [facility] Last Admin: 12/20/16 18:12 Dose: 20 mg Carvedilol (Coreg) 3.125 mg PEG BID [facility] Last Admin: 12/20/16 18:12 Dose: 3.125 mg Clopidogrel Bisulfate (Plavix) 75 mg PO DAILY [facility] Last Admin: 12/20/16 12:44 Dose: 75 mg Enoxaparin Sodium (Lovenox) 40 mg SC DAILY [facility] Last Admin: 12/20/16 12:45 Dose: 40 mg Famotidine (Pepcid) 20 mg PEG BID [facility] Last Admin: 12/20/16 18:12 Dose: 20 mg Finasteride (Proscar) 5 mg PEG DAILY [facility] Last Admin: 12/20/16 12:39 Dose: 5 mg Levetiracetam (Keppra) 500 mg PEG BID [facility] Last Admin: 12/20/16 18:12 Dose: 500 mg Tamsulosin HCl (Flomax) 0.8 mg PEG DAILY [facility] Last Admin: 12/20/16 12:56 Dose: 0.8 mg - Labs Labs: 12/14/16 10:01 12/14/16 10:01 PT 10.6 SECONDS (9.7-12.2) 11/24/15 14:10 INR 1.0 11/24/15 14:10 APTT 25 SECONDS (21-34) 11/24/15 14:10 - Constitutional Appears: No Acute Distress - Head Exam Head Exam: NORMAL INSPECTION, NORMOCEPHALIC - Neck Exam Additional comments: +trach tube in place - Respiratory Exam Respiratory Exam: Clear to Ausculation Bilateral, NORMAL BREATHING PATTERN. absent: Wheezes - Cardiovascular Exam Cardiovascular Exam: REGULAR RHYTHM, RRR - GI/Abdominal Exam GI & Abdominal Exam: Soft, Normal Bowel Sounds. absent: Tenderness - Extremities Exam Extremities Exam: Normal Inspection. absent: Pedal Edema, Tenderness - Neurological Exam Neurological Exam: Alert, Awake, Oriented x3 - Skin Skin Exam: Dry, Intact, Normal Color, Warm Assessment and Plan - Assessment and Plan (Free Text) Plan: 1. UTI Urine culture: + Proteus. Resistant to many antibiotics. Will reconsult ID: Dr Walden for recommendations. As per Dr. Walden, 3 [address] baker to treat UTI topically and avoid systemic antibiotics, this is a palliative measure and not invasive. 12/12/2016: UTI is resolved. Completed antibiotics previous Urine Culture 12/03/16 - Positive Kleb pneumo, sensitive to cipro, completed course 2. Anoxic encephalopathy Continue weekly labs on Mondays. Pending senior care facility placement Turn Q2 hours- Continue to monitor Isosource feeds through PEG @ reduced rate 60cc/hr per Nutrition recommendations Continue trach suctioning as needed 3. Urinary Retention Patient has a Baker catheter Flomax 0.8mg PEG daily Proscar 5mg PO daily Bethanecol 20 mg PO TID- started after persistent retention monitor I's and O's 4. Failure to thrive Continue feeding. Patient is tolerating the feeds 100cc of free water flush q8H Measure weight weekly. Continue to monitor Respiratory failure trach collar in place - normal resp pattern, thick secretions CAD (coronary artery disease) s/p cardiac stents on 06/13/15 ASA 81mg via PEG daily Coreg 3.125mg PEG BID Plavix 75mg PO Daily Seizures Keppra 500mg PEG BID for seizure prophylaxis Lower extremity edema Lasix via PEG as needed. Administered. Sacral Ulcers 12/12/2016: Sacral ulcer is healed Continue frequent turning, protective ointment and skin checks. Stage I ulcer present, about 2 cm in length at upper sacral crease; area frequently alternates between Stage I and healed ulcer. 11/21: Apply ointment daily to sacral area to prevent ulceration Prophylactic measure Pepcid 20 mg PEG BID renewed Lovenox 40mg SC daily SCDs and offloading boots DW Beth Modi DO, PGY-1 <Nathaniel Beth - Last Filed: 12/24/16 12:05> Objective - Vital Signs/Intake and Output Vital Signs (last 24 hours): Temp Pulse Resp BP Pulse Ox 98.6 F 92 H 20 126/93 H 97 12/24/16 07:50 12/24/16 07:50 12/24/16 07:50 12/24/16 07:50 12/24/16 07:50 Intake and Output: 12/24/16 12/24/16 06:59 18:59 Intake Total 1660 Output Total 1500 Balance 160 - Medications Medications: Current Medications Aspirin (Aspirin Chewable) 81 mg PEG DAILY [facility] Last Admin: 12/24/16 11:02 Dose: 81 mg Bethanechol Chloride (Urecholine) 20 mg PEG TID [facility] Last Admin: 12/24/16 11:03 Dose: 20 mg Carvedilol (Coreg) 3.125 mg PEG BID [facility] Last Admin: 12/24/16 11:02 Dose: 3.125 mg Clopidogrel Bisulfate (Plavix) 75 mg PO DAILY [facility] Last Admin: 12/24/16 11:02 Dose: 75 mg Enoxaparin Sodium (Lovenox) 40 mg SC DAILY [facility] Last Admin: 12/24/16 11:03 Dose: 40 mg Famotidine (Pepcid) 20 mg PEG BID [facility] Last Admin: 12/24/16 11:03 Dose: 20 mg Finasteride (Proscar) 5 mg PEG DAILY [facility] Last Admin: 12/24/16 11:02 Dose: 5 mg Levetiracetam (Keppra) 500 mg PEG BID [facility] Last Admin: 12/24/16 11:02 Dose: 500 mg Tamsulosin HCl (Flomax) 0.8 mg PEG DAILY [facility] Last Admin: 12/24/16 11:02 Dose: 0.8 mg - Labs Labs: 12/21/16 07:39 12/21/16 07:39 PT 10.6 SECONDS (9.7-12.2) 11/24/15 14:10 INR 1.0 11/24/15 14:10 APTT 25 SECONDS (21-34) 11/24/15 14:10 Attending/Attestation - Attestation I have personally seen and examined this patient.: Yes I have fully participated in the care of the patient.: Yes I have reviewed all pertinent clinical information, including history, physical exam and plan: Yes Notes (Text): Anoxic encephalopathy - Chronic, at baseline, no improvement; CAD s/p stent - continue ASA and plavix; coreg; Recurrent UTI - started on continuous bladder irrigation for 3 weeks per ID; will not treat with abx; Sacral decubitus ulcer stage I - continue frequent repositioning and protective ointment; Hypernatremia - Per nursing staff, patient receiving 300 cc H20 flushes q8h; will reassess with labs tomorrow;
[2016-12-21 07:57] LABS: BASO % 0.4 % (0.0-2.0); EOS # 0.4 K/uL (0.0-0.7); EOS % 5.3 % (0.0-4.0); HEMOGLOBIN 12.2 g/dL (12.0-18.0); LYMPH % 25.4 % (20.0-40.0); MEAN CELL VOLUME 86.4 fL (80.0-94.0); MEAN CORPUSCULAR HEMOGLOBIN 28.3 pg (27.0-31.0); MEAN CORPUSCULAR HGB CONC 32.7 g/dL (33.0-37.0); MEAN PLATELET VOLUME 9.3 fL (7.2-11.7); MONO # 0.8 K/uL (0.0-0.8); NEUT # 4.7 K/uL (1.8-7.0); NEUT % 58.9 % (50.0-75.0); RBC 4.32 Mil/uL (4.40-5.90); RED CELL DISTRIBUTION WIDTH 15.5 % (11.5-14.5)
[2016-12-21 08:13] LABS: ALBUMIN 3.3 g/dL (3.5-5.0)
[2016-12-21 08:15] LABS: GFR NON-AFRICAN AMERICAN > 60
[2016-12-21 08:16] LABS: ALB/GLOB RATIO 0.8 (1.0-2.1); ALT/SGPT 50 U/L (21-72); AST/SGOT 28 U/L (17-59); BLOOD UREA NITROGEN 20 mg/dL (9-20)
[2016-12-21 08:17] LABS: CALCIUM 8.4 mg/dl (8.6-10.4)
[2016-12-21] MEDS: levETIRAcetam 100 mg/ml (5ml) Oral Syringe PEG SCH ×2 (12:47→17:40)
[2016-12-21] MEDS: Enoxaparin 40 mg Syringe SC SCH (12:47)
--- NOTE | 2016-12-21 16:12 | CP.PCM.PN ---
Subjective - Date & Time of Evaluation Date of Evaluation: 12/21/16 Time of Evaluation: 09:00 - Subjective Subjective: RX IN PROGRESS CONSIDER ADDING 1 AMP NEOSPORIN TO EACH 3 L OF BLADDER IRRIGATION Objective - Vital Signs/Intake and Output Vital Signs (last 24 hours): Temp Pulse Resp BP Pulse Ox 98.5 F 90 20 116/75 95 12/21/16 08:29 12/21/16 08:29 12/21/16 08:29 12/21/16 08:29 12/21/16 08:29 Intake and Output: 12/21/16 12/21/16 06:59 18:59 Intake Total 1730 780 Output Total 1900 1000 Balance -170 -220 - Medications Medications: Current Medications Aspirin (Aspirin Chewable) 81 mg PEG DAILY [facility] Last Admin: 12/21/16 12:48 Dose: 81 mg Bethanechol Chloride (Urecholine) 20 mg PEG TID [facility] Last Admin: 12/21/16 14:56 Dose: 20 mg Carvedilol (Coreg) 3.125 mg PEG BID [facility] Last Admin: 12/21/16 10:00 Dose: 3.125 mg Clopidogrel Bisulfate (Plavix) 75 mg PO DAILY [facility] Last Admin: 12/21/16 12:48 Dose: 75 mg Enoxaparin Sodium (Lovenox) 40 mg SC DAILY [facility] Last Admin: 12/21/16 12:47 Dose: 40 mg Famotidine (Pepcid) 20 mg PEG BID [facility] Last Admin: 12/21/16 12:48 Dose: 20 mg Finasteride (Proscar) 5 mg PEG DAILY [facility] Last Admin: 12/21/16 12:49 Dose: 5 mg Levetiracetam (Keppra) 500 mg PEG BID [facility] Last Admin: 12/21/16 12:47 Dose: 500 mg Tamsulosin HCl (Flomax) 0.8 mg PEG DAILY [facility] Last Admin: 12/21/16 12:47 Dose: 0.8 mg - Labs Labs: 12/21/16 07:39 12/21/16 07:39 PT 10.6 SECONDS (9.7-12.2) 11/24/15 14:10 INR 1.0 11/24/15 14:10 APTT 25 SECONDS (21-34) 11/24/15 14:10
[2016-12-22] MEDS: Enoxaparin 40 mg Syringe SC SCH (11:19)
[2016-12-22] MEDS: levETIRAcetam 100 mg/ml (5ml) Oral Syringe PEG SCH ×2 (11:19→17:26)
--- NOTE | 2016-12-22 13:40 | CP.PCM.PN ---
Subjective - Date & Time of Evaluation Date of Evaluation: 12/22/16 Time of Evaluation: 09:00 - Subjective Subjective: cbi renewed consider adding neosporin Objective - Vital Signs/Intake and Output Vital Signs (last 24 hours): Temp Pulse Resp BP Pulse Ox 98.1 F 83 20 96/50 L 98 12/22/16 07:00 12/22/16 07:00 12/22/16 07:00 12/22/16 07:00 12/22/16 07:00 Intake and Output: 12/22/16 12/22/16 06:59 18:59 Intake Total 1560 Output Total 950 1000 Balance 610 -1000 - Medications Medications: Current Medications Aspirin (Aspirin Chewable) 81 mg PEG DAILY [facility] Last Admin: 12/22/16 11:27 Dose: 81 mg Bethanechol Chloride (Urecholine) 20 mg PEG TID [facility] Last Admin: 12/22/16 11:18 Dose: 20 mg Carvedilol (Coreg) 3.125 mg PEG BID [facility] Last Admin: 12/22/16 11:18 Dose: 3.125 mg Clopidogrel Bisulfate (Plavix) 75 mg PO DAILY [facility] Last Admin: 12/22/16 11:18 Dose: 75 mg Enoxaparin Sodium (Lovenox) 40 mg SC DAILY [facility] Last Admin: 12/22/16 11:19 Dose: 40 mg Famotidine (Pepcid) 20 mg PEG BID [facility] Last Admin: 12/22/16 11:18 Dose: 20 mg Finasteride (Proscar) 5 mg PEG DAILY [facility] Last Admin: 12/22/16 11:18 Dose: 5 mg Levetiracetam (Keppra) 500 mg PEG BID [facility] Last Admin: 12/22/16 11:19 Dose: 500 mg Tamsulosin HCl (Flomax) 0.8 mg PEG DAILY [facility] Last Admin: 12/22/16 11:24 Dose: 0.8 mg - Labs Labs: 12/21/16 07:39 12/21/16 07:39 PT 10.6 SECONDS (9.7-12.2) 11/24/15 14:10 INR 1.0 11/24/15 14:10 APTT 25 SECONDS (21-34) 11/24/15 14:10 - Constitutional Appears: Non-toxic - Head Exam Head Exam: NORMOCEPHALIC - Eye Exam Eye Exam: absent: Scleral icterus - ENT Exam ENT Exam: Mucous Membranes Dry - Neck Exam Neck Exam: absent: Lymphadenopathy - Respiratory Exam Respiratory Exam: Decreased Breath Sounds - Cardiovascular Exam Cardiovascular Exam: REGULAR RHYTHM
--- NOTE | 2016-12-22 18:01 | CP.PCM.PN ---
<Carlos Dumont - Last Filed: 12/22/16 21:40> Subjective - Date & Time of Evaluation Date of Evaluation: 12/22/16 Time of Evaluation: 09:20 - Subjective Subjective: 66M with pmh of anoxic brain injury. Patient's trach tube in place, no erythema/ swelling around trachea site or peg tube. No acute events overnight as per nursing. Baker in place, draining clear yellow fluid. Patient was seen and examined at bedside. Patient resting comfortably. Patient is in no acute distress. As per Dr. Walden, patient with 3 way baker to treat UTI topically and avoid systemic antibiotics. Objective - Vital Signs/Intake and Output Vital Signs (last 24 hours): Temp Pulse Resp BP Pulse Ox 98.1 F 76 20 105/62 98 12/22/16 15:00 12/22/16 17:54 12/22/16 15:00 12/22/16 15:00 12/22/16 15:00 Intake and Output: 12/22/16 12/22/16 06:59 18:59 Intake Total 1560 Output Total 950 2000 Balance 610 -2000 - Medications Medications: Current Medications Aspirin (Aspirin Chewable) 81 mg PEG DAILY [facility] Last Admin: 12/22/16 11:27 Dose: 81 mg Bethanechol Chloride (Urecholine) 20 mg PEG TID [facility] Last Admin: 12/22/16 17:26 Dose: 20 mg Carvedilol (Coreg) 3.125 mg PEG BID [facility] Last Admin: 12/22/16 17:32 Dose: Not Given Clopidogrel Bisulfate (Plavix) 75 mg PO DAILY [facility] Last Admin: 12/22/16 11:18 Dose: 75 mg Enoxaparin Sodium (Lovenox) 40 mg SC DAILY [facility] Last Admin: 12/22/16 11:19 Dose: 40 mg Famotidine (Pepcid) 20 mg PEG BID [facility] Last Admin: 12/22/16 17:26 Dose: 20 mg Finasteride (Proscar) 5 mg PEG DAILY [facility] Last Admin: 12/22/16 11:18 Dose: 5 mg Levetiracetam (Keppra) 500 mg PEG BID [facility] Last Admin: 12/22/16 17:26 Dose: 500 mg Tamsulosin HCl (Flomax) 0.8 mg PEG DAILY [facility] Last Admin: 12/22/16 11:24 Dose: 0.8 mg - Labs Labs: 12/21/16 07:39 12/21/16 07:39 PT 10.6 SECONDS (9.7-12.2) 11/24/15 14:10 INR 1.0 11/24/15 14:10 APTT 25 SECONDS (21-34) 11/24/15 14:10 - Constitutional Appears: Chronically Ill - Head Exam Head Exam: ATRAUMATIC - Respiratory Exam Respiratory Exam: Clear to Ausculation Bilateral, NORMAL BREATHING PATTERN - Cardiovascular Exam Cardiovascular Exam: REGULAR RHYTHM, RRR, +S1, +S2. absent: JVD - GI/Abdominal Exam GI & Abdominal Exam: Soft Assessment and Plan - Assessment and Plan (Free Text) Plan: No acute changes, continue weekly labs on Mondays Turn Q2 hours- Continue to monitor Isosource feeds through PEG @ reduced rate 60cc/hr per Nutrition recommendations Continue trach suctioning as needed Pending halfway facility placement UTI Urine Culture 12/03/16 - Positive Kleb pneumo, sensitive to cipro - resolved Sacral Ulcers Stage I ulcer present, about 2 cm in length at upper sacral crease; area frequently alternates between Stage I and healed ulcer. Continue frequent turning, protective ointment and skin checks. 11/21: Apply ointment daily to sacral area to prevent ulceration Urinary Retention f/u repeat urine C&S Triple lumen Baker in place for irrigation Flomax 0.8mg PEG daily Proscar 5mg PO daily Bethanecol 20 mg PO TID- started after persistent retention (before current UTI ) and found to be effective. monitor I's and O's Respiratory failure trach collar in place - normal resp pattern, thick secretions CAD (coronary artery disease) s/p cardiac stents on 06/13/15 ASA 81mg via PEG daily Coreg 3.125mg PEG BID renewed Seizures Keppra 500mg PEG BID for seizure prophylaxis Lower extremity edema Lasix via PEG as needed. Administered. Prophylactic measure Pepcid 20 mg PEG BID renewed Lovenox 40mg SC daily Sennosides 8.6mg PEG daily SCDs and offloading boots Continue to monitor medication administrations and clinical presentation <Donnlel Ying - Last Filed: 12/22/16 21:56> Objective - Vital Signs/Intake and Output Vital Signs (last 24 hours): Temp Pulse Resp BP Pulse Ox 98.1 F 76 20 105/62 98 01/30/17 15:00 12/22/16 17:54 12/22/16 15:00 12/22/16 15:00 12/22/16 15:00 Intake and Output: 12/22/16 12/23/16 18:59 06:59 Output Total 1999 Balance -2000 - Medications Medications: Current Medications Aspirin (Aspirin Chewable) 81 mg PEG DAILY [facility] Last Admin: 12/22/16 11:27 Dose: 81 mg Bethanechol Chloride (Urecholine) 20 mg PEG TID [facility] Last Admin: 12/22/16 17:26 Dose: 20 mg Carvedilol (Coreg) 3.125 mg PEG BID [facility] Last Admin: 12/22/16 17:32 Dose: Not Given Clopidogrel Bisulfate (Plavix) 75 mg PO DAILY [facility] Last Admin: 12/22/16 11:18 Dose: 75 mg Enoxaparin Sodium (Lovenox) 40 mg SC DAILY [facility] Last Admin: 12/22/16 11:19 Dose: 40 mg Famotidine (Pepcid) 20 mg PEG BID [facility] Last Admin: 12/22/16 17:26 Dose: 20 mg Finasteride (Proscar) 5 mg PEG DAILY [facility] Last Admin: 12/22/16 11:18 Dose: 5 mg Levetiracetam (Keppra) 500 mg PEG BID [facility] Last Admin: 12/22/16 17:26 Dose: 500 mg Tamsulosin HCl (Flomax) 0.8 mg PEG DAILY [facility] Last Admin: 12/22/16 11:24 Dose: 0.8 mg - Labs Labs: 12/21/16 07:39 12/21/16 07:39 PT 10.6 SECONDS (9.7-12.2) 11/24/15 14:10 INR 1.0 11/24/15 14:10 APTT 25 SECONDS (21-34) 11/24/15 14:10 Attending/Attestation - Attestation I have personally seen and examined this patient.: Yes I have fully participated in the care of the patient.: Yes I have reviewed all pertinent clinical information, including history, physical exam and plan: Yes Notes (Text): 12/22/16 21:55 patient was seen and examined at bedside with the resident's CBI is in place continue current management Discussed the plan of care with the resident
[2016-12-23] MEDS: Enoxaparin 40 mg Syringe SC SCH (13:00)
[2016-12-23] MEDS: levETIRAcetam 100 mg/ml (5ml) Oral Syringe PEG SCH ×2 (13:00→17:55)
--- NOTE | 2016-12-23 15:31 | CP.PCM.PN ---
<Carlos Dumont - Last Filed: 12/23/16 23:23> Subjective - Date & Time of Evaluation Date of Evaluation: 12/23/16 Time of Evaluation: 08:15 - Subjective Subjective: 66M with pmh of anoxic brain injury. Patient's trach tube in place, no erythema/ swelling around trachea site or peg tube. No acute events overnight as per nursing. Yoo in place, draining clear yellow fluid. Patient was seen and examined at bedside. Patient resting comfortably. Objective - Vital Signs/Intake and Output Vital Signs (last 24 hours): Temp Pulse Resp BP Pulse Ox 98.0 F 66 18 121/81 99 12/23/16 07:00 12/23/16 07:00 12/23/16 07:00 12/23/16 07:00 12/23/16 07:00 Intake and Output: 12/23/16 12/23/16 06:59 18:59 Intake Total 480 780 Output Total 2350 1000 Balance -1870 -220 - Medications Medications: Current Medications Aspirin (Aspirin Chewable) 81 mg PEG DAILY [facility] Last Admin: 12/23/16 13:01 Dose: 81 mg Bethanechol Chloride (Urecholine) 20 mg PEG TID [facility] Last Admin: 12/23/16 15:00 Dose: 20 mg Carvedilol (Coreg) 3.125 mg PEG BID [facility] Last Admin: 12/23/16 12:57 Dose: 3.125 mg Clopidogrel Bisulfate (Plavix) 75 mg PO DAILY [facility] Last Admin: 12/23/16 12:58 Dose: 75 mg Enoxaparin Sodium (Lovenox) 40 mg SC DAILY [facility] Last Admin: 12/23/16 13:00 Dose: 40 mg Famotidine (Pepcid) 20 mg PEG BID [facility] Last Admin: 12/23/16 13:00 Dose: 20 mg Finasteride (Proscar) 5 mg PEG DAILY [facility] Last Admin: 12/23/16 12:59 Dose: 5 mg Levetiracetam (Keppra) 500 mg PEG BID [facility] Last Admin: 12/23/16 13:00 Dose: 500 mg Tamsulosin HCl (Flomax) 0.8 mg PEG DAILY [facility] Last Admin: 12/23/16 12:58 Dose: 0.8 mg - Labs Labs: 12/21/16 07:39 12/21/16 07:39 PT 10.6 SECONDS (9.7-12.2) 11/24/15 14:10 INR 1.0 11/24/15 14:10 APTT 25 SECONDS (21-34) 11/24/15 14:10 - Constitutional Appears: Non-toxic - Head Exam Head Exam: ATRAUMATIC - ENT Exam ENT Exam: Mucous Membranes Moist - Respiratory Exam Respiratory Exam: Clear to Ausculation Bilateral, NORMAL BREATHING PATTERN Additional comments: breathing with tracheostomy tube in place - Cardiovascular Exam Cardiovascular Exam: REGULAR RHYTHM, RRR, +S1, +S2 - GI/Abdominal Exam GI & Abdominal Exam: Soft, Normal Bowel Sounds Additional comments: PEG tube dressing changed yesterday. Skin is warm and dry with no erythema. - Exam Exam: absent: Uretheral Discharge Assessment and Plan - Assessment and Plan (Free Text) Plan: No acute changes, continue weekly labs on Mondays Turn Q2 hours- Continue to monitor Isosource feeds through PEG @ reduced rate 60cc/hr per Nutrition recommendations Continue trach suctioning as needed Pending longterm facility placement UTI Urine Culture 12/03/16 - Positive Kleb pneumo, sensitive to cipro - resolved Sacral Ulcers Stage I ulcer present, about 2 cm in length at upper sacral crease; area frequently alternates between Stage I and healed ulcer. Continue frequent turning, protective ointment and skin checks. 11/21: Apply ointment daily to sacral area to prevent ulceration Urinary Retention Triple lumen Yoo in place for irrigation Flomax 0.8mg PEG daily Proscar 5mg PO daily renewed Bethanecol 20 mg PO TID- started after persistent retention (before current UTI ) and found to be effective. monitor I's and O's Respiratory failure trach collar in place - normal resp pattern, thick secretions CAD (coronary artery disease) s/p cardiac stents on 06/13/15 ASA 81mg via PEG daily renewed Coreg 3.125mg PEG BID Seizures Keppra 500mg PEG BID for seizure prophylaxis Lower extremity edema Lasix via PEG as needed. Administered. Prophylactic measure Pepcid 20 mg PEG BID Lovenox 40mg SC daily Sennosides 8.6mg PEG daily SCDs and offloading boots Continue to monitor medication administrations and clinical presentation <Donnell Ying - Last Filed: 12/24/16 08:33> Objective - Vital Signs/Intake and Output Vital Signs (last 24 hours): Temp Pulse Resp BP Pulse Ox 98.6 F 92 H 20 126/93 H 97 12/24/16 07:50 12/24/16 07:50 12/24/16 07:50 12/24/16 07:50 12/24/16 07:50 Intake and Output: 12/24/16 12/24/16 06:59 18:59 Intake Total 1660 Output Total 1500 Balance 160 - Medications Medications: Current Medications Aspirin (Aspirin Chewable) 81 mg PEG DAILY [facility] Last Admin: 12/23/16 13:01 Dose: 81 mg Bethanechol Chloride (Urecholine) 20 mg PEG TID [facility] Last Admin: 12/23/16 17:56 Dose: 20 mg Carvedilol (Coreg) 3.125 mg PEG BID [facility] Last Admin: 12/23/16 17:55 Dose: 3.125 mg Clopidogrel Bisulfate (Plavix) 75 mg PO DAILY [facility] Last Admin: 12/23/16 12:58 Dose: 75 mg Enoxaparin Sodium (Lovenox) 40 mg SC DAILY [facility] Last Admin: 12/23/16 13:00 Dose: 40 mg Famotidine (Pepcid) 20 mg PEG BID [facility] Last Admin: 12/23/16 17:55 Dose: 20 mg Finasteride (Proscar) 5 mg PEG DAILY [facility] Last Admin: 12/23/16 12:59 Dose: 5 mg Levetiracetam (Keppra) 500 mg PEG BID [facility] Last Admin: 12/23/16 17:55 Dose: 500 mg Tamsulosin HCl (Flomax) 0.8 mg PEG DAILY [facility] Last Admin: 12/23/16 12:58 Dose: 0.8 mg - Labs Labs: 12/21/16 07:39 12/21/16 07:39 PT 10.6 SECONDS (9.7-12.2) 11/24/15 14:10 INR 1.0 11/24/15 14:10 APTT 25 SECONDS (21-34) 11/24/15 14:10 Attending/Attestation - Attestation I have personally seen and examined this patient.: Yes I have fully participated in the care of the patient.: Yes I have reviewed all pertinent clinical information, including history, physical exam and plan: Yes Notes (Text): 12/24/16 08:33 Patient was seen and examined at bedside with the resident Patient is on continuous bladder irrigation Continue current management Discussed the plan of care with the resident
[2016-12-24] MEDS: levETIRAcetam 100 mg/ml (5ml) Oral Syringe PEG SCH ×2 (11:02→18:11)
[2016-12-24] MEDS: Enoxaparin 40 mg Syringe SC SCH (11:03)
--- NOTE | 2016-12-24 12:51 | CP.PCM.PN ---
<MarcellaPati - Last Filed: 12/24/16 12:44> Subjective - Date & Time of Evaluation Date of Evaluation: 12/24/16 Time of Evaluation: 09:25 - Subjective Subjective: Medicine Note Patient seen and examined. No acute events overnight. ID on board for + proteus mirablis in Urine. Afebrile Objective - Vital Signs/Intake and Output Vital Signs (last 24 hours): Temp Pulse Resp BP Pulse Ox 98.6 F 92 H 20 126/93 H 97 12/24/16 07:50 12/24/16 07:50 12/24/16 07:50 12/24/16 07:50 12/24/16 07:50 Intake and Output: 12/24/16 12/24/16 06:59 18:59 Intake Total 1660 Output Total 1500 Balance 160 - Medications Medications: Current Medications Aspirin (Aspirin Chewable) 81 mg PEG DAILY [facility] Last Admin: 12/24/16 11:02 Dose: 81 mg Bethanechol Chloride (Urecholine) 20 mg PEG TID [facility] Last Admin: 12/24/16 11:03 Dose: 20 mg Carvedilol (Coreg) 3.125 mg PEG BID [facility] Last Admin: 12/24/16 11:02 Dose: 3.125 mg Clopidogrel Bisulfate (Plavix) 75 mg PO DAILY [facility] Last Admin: 12/24/16 11:02 Dose: 75 mg Enoxaparin Sodium (Lovenox) 40 mg SC DAILY [facility] Last Admin: 12/24/16 11:03 Dose: 40 mg Famotidine (Pepcid) 20 mg PEG BID [facility] Last Admin: 12/24/16 11:03 Dose: 20 mg Finasteride (Proscar) 5 mg PEG DAILY [facility] Last Admin: 12/24/16 11:02 Dose: 5 mg Levetiracetam (Keppra) 500 mg PEG BID [facility] Last Admin: 12/24/16 11:02 Dose: 500 mg Tamsulosin HCl (Flomax) 0.8 mg PEG DAILY [facility] Last Admin: 12/24/16 11:02 Dose: 0.8 mg - Labs Labs: 12/21/16 07:39 12/21/16 07:39 PT 10.6 SECONDS (9.7-12.2) 11/24/15 14:10 INR 1.0 01/02/16 14:10 APTT 25 SECONDS (21-34) 11/24/15 14:10 - Constitutional Appears: No Acute Distress, Chronically Ill - Neck Exam Additional comments: Trach collar in place - GI/Abdominal Exam GI & Abdominal Exam: Soft. absent: Tenderness Additional comments: PEG tube site looks well, no drainage. - Extremities Exam Additional comments: atrophic lower extremities Assessment and Plan - Assessment and Plan (Free Text) Assessment: Plan: No acute changes, continue weekly labs on Mondays Turn Q2 hours- Continue to monitor Isosource feeds through PEG @ reduced rate 60cc/hr per Nutrition recommendations Continue trach suctioning as needed Pending custodial facility placement UTI Urine Culture 12/03/16 - Positive Kleb pneumo, sensitive to cipro - resolved Sacral Ulcers Stage I ulcer present, about 2 cm in length at upper sacral crease; area frequently alternates between Stage I and healed ulcer. Continue frequent turning, protective ointment and skin checks. 11/21: Apply ointment daily to sacral area to prevent ulceration Urinary Retention Triple lumen Yoo in place for irrigation Flomax 0.8mg PEG daily Proscar 5mg PO daily Bethanecol 20 mg PO TID- started after persistent retention (before current UTI ) and found to be effective. monitor I's and O's Respiratory failure trach collar in place - normal resp pattern, thick secretions CAD (coronary artery disease) s/p cardiac stents on 06/13/15 ASA 81mg via PEG daily Coreg 3.125mg PEG BID Seizures Keppra 500mg PEG BID for seizure prophylaxis Lower extremity edema Lasix via PEG as needed. Administered. Prophylactic measure Pepcid 20 mg PEG BID Lovenox 40mg SC daily Sennosides 8.6mg PEG daily SCDs and offloading boots Continue to monitor medication administrations and clinical presentation <Donnell Ying - Last Filed: 12/24/16 18:53> Objective - Vital Signs/Intake and Output Vital Signs (last 24 hours): Temp Pulse Resp BP Pulse Ox 98.6 F 92 H 20 126/93 H 97 12/24/16 07:50 12/24/16 07:50 12/24/16 07:50 12/24/16 07:50 12/24/16 07:50 Intake and Output: 12/24/16 12/24/16 06:59 18:59 Intake Total 1660 780 Output Total 1500 500 Balance 160 280 - Medications Medications: Current Medications Aspirin (Aspirin Chewable) 81 mg PEG DAILY [facility] Last Admin: 12/24/16 11:02 Dose: 81 mg Bethanechol Chloride (Urecholine) 20 mg PEG TID [facility] Last Admin: 12/24/16 18:12 Dose: 20 mg Carvedilol (Coreg) 3.125 mg PEG BID [facility] Last Admin: 12/24/16 18:11 Dose: 3.125 mg Clopidogrel Bisulfate (Plavix) 75 mg PO DAILY [facility] Last Admin: 12/24/16 11:02 Dose: 75 mg Enoxaparin Sodium (Lovenox) 40 mg SC DAILY [facility] Last Admin: 12/24/16 11:03 Dose: 40 mg Famotidine (Pepcid) 20 mg PEG BID [facility] Last Admin: 12/24/16 18:11 Dose: 20 mg Finasteride (Proscar) 5 mg PEG DAILY [facility] Last Admin: 12/24/16 11:02 Dose: 5 mg Levetiracetam (Keppra) 500 mg PEG BID [facility] Last Admin: 12/24/16 18:11 Dose: 500 mg Tamsulosin HCl (Flomax) 0.8 mg PEG DAILY [facility] Last Admin: 12/24/16 11:02 Dose: 0.8 mg - Labs Labs: 12/21/16 07:39 12/21/16 07:39 PT 10.6 SECONDS (9.7-12.2) 11/24/15 14:10 INR 1.0 11/24/15 14:10 APTT 25 SECONDS (21-34) 11/24/15 14:10 Attending/Attestation - Attestation I have personally seen and examined this patient.: Yes I have fully participated in the care of the patient.: Yes I have reviewed all pertinent clinical information, including history, physical exam and plan: Yes Notes (Text): 12/24/16 18:53 Patient was seen and examined at bedside CBI is in place Continue current management Turn and position every 2 hours
[2016-12-25] MEDS: levETIRAcetam 100 mg/ml (5ml) Oral Syringe PEG SCH ×2 (11:00→18:53)
[2016-12-25] MEDS: Enoxaparin 40 mg Syringe SC SCH (11:01)
--- NOTE | 2016-12-25 14:08 | CP.PCM.PN ---
Subjective - Date & Time of Evaluation Date of Evaluation: 12/25/16 Time of Evaluation: 14:00 - Subjective Subjective: patient was seen and examined at bedside Discussed with the nursing staff Objective - Vital Signs/Intake and Output Vital Signs (last 24 hours): Temp Pulse Resp BP Pulse Ox 97.9 F 79 19 101/68 99 12/25/16 07:53 12/25/16 07:53 12/25/16 07:53 12/25/16 07:53 12/25/16 07:53 Intake and Output: 12/25/16 12/25/16 06:59 18:59 Intake Total 1460 Output Total 800 Balance 660 - Medications Medications: Current Medications Aspirin (Aspirin Chewable) 81 mg PEG DAILY [facility] Last Admin: 12/25/16 11:00 Dose: 81 mg Bethanechol Chloride (Urecholine) 20 mg PEG TID [facility] Last Admin: 12/25/16 11:01 Dose: 20 mg Carvedilol (Coreg) 3.125 mg PEG BID [facility] Last Admin: 12/25/16 11:01 Dose: 3.125 mg Clopidogrel Bisulfate (Plavix) 75 mg PO DAILY [facility] Last Admin: 12/25/16 11:01 Dose: 75 mg Enoxaparin Sodium (Lovenox) 40 mg SC DAILY [facility] Last Admin: 12/25/16 11:01 Dose: 40 mg Famotidine (Pepcid) 20 mg PEG BID [facility] Last Admin: 12/25/16 11:01 Dose: 20 mg Finasteride (Proscar) 5 mg PEG DAILY [facility] Last Admin: 12/25/16 11:01 Dose: 5 mg Levetiracetam (Keppra) 500 mg PEG BID [facility] Last Admin: 12/25/16 11:00 Dose: 500 mg Tamsulosin HCl (Flomax) 0.8 mg PEG DAILY [facility] Last Admin: 12/25/16 11:00 Dose: 0.8 mg - Labs Labs: 12/21/16 07:39 12/21/16 07:39 PT 10.6 SECONDS (9.7-12.2) 11/24/15 14:10 INR 1.0 11/24/15 14:10 APTT 25 SECONDS (21-34) 11/24/15 14:10 - Head Exam Head Exam: ATRAUMATIC, NORMOCEPHALIC - Eye Exam Eye Exam: absent: Scleral icterus - Respiratory Exam Additional comments: tracheostomy site clean - Cardiovascular Exam Cardiovascular Exam: REGULAR RHYTHM, +S1, +S2 - GI/Abdominal Exam GI & Abdominal Exam: Soft Additional comments: PEG tube present - Extremities Exam Extremities Exam: absent: Pedal Edema Assessment and Plan - Assessment and Plan (Free Text) Plan: No acute changes, continue weekly labs on Mondays Turn Q2 hours- Continue to monitor Isosource feeds through PEG @ 60cc/hr per Nutrition recommendations Continue trach suctioning as needed Pending custodial facility placement UTI Urine Culture 12/03/16 - Positive Kleb pneumo, sensitive to cipro - resolved patient is on CBI Sacral Ulcers Stage I ulcer present, about 2 cm in length at upper sacral crease; area frequently alternates between Stage I and healed ulcer. Continue frequent turning, protective ointment and skin checks. 11/21: Apply ointment daily to sacral area to prevent ulceration Urinary Retention Triple lumen Yoo in place for irrigation Flomax 0.8mg PEG daily Proscar 5mg PO daily Bethanecol 20 mg PO TID- started after persistent retention (before current UTI ) and found to be effective. monitor I's and O's Respiratory failure trach collar in place - normal resp pattern, thick secretions CAD (coronary artery disease) s/p cardiac stents on 06/13/15 ASA 81mg via PEG daily Coreg 3.125mg PEG BID Seizures Keppra 500mg PEG BID for seizure prophylaxis Lower extremity edema Lasix via PEG as needed. Administered. Prophylactic measure Pepcid 20 mg PEG BID Lovenox 40mg SC daily Sennosides 8.6mg PEG daily SCDs and offloading boots Continue to monitor medication administrations and clinical presentation
--- NOTE | 2016-12-26 10:17 | CP.PCM.PN ---
Subjective - Date & Time of Evaluation Date of Evaluation: 12/26/16 Time of Evaluation: 11:00 - Subjective Subjective: Patient was seen and examined at bedside No change in clinical condition Objective - Vital Signs/Intake and Output Vital Signs (last 24 hours): Temp Pulse Resp BP Pulse Ox 98.5 F 78 20 110/76 98 12/26/16 07:58 12/26/16 07:58 12/26/16 07:58 12/26/16 07:58 12/26/16 07:58 Intake and Output: 12/26/16 12/26/16 06:59 18:59 Intake Total 780 680 Output Total 750 650 Balance 30 30 - Medications Medications: Current Medications Aspirin (Aspirin Chewable) 81 mg PEG DAILY [facility] Last Admin: 12/25/16 11:00 Dose: 81 mg Bethanechol Chloride (Urecholine) 20 mg PEG TID [facility] Last Admin: 12/25/16 18:52 Dose: 20 mg Carvedilol (Coreg) 3.125 mg PEG BID [facility] Last Admin: 12/25/16 18:52 Dose: 3.125 mg Clopidogrel Bisulfate (Plavix) 75 mg PO DAILY [facility] Last Admin: 12/25/16 11:01 Dose: 75 mg Enoxaparin Sodium (Lovenox) 40 mg SC DAILY [facility] Last Admin: 12/25/16 11:01 Dose: 40 mg Famotidine (Pepcid) 20 mg PEG BID [facility] Last Admin: 12/25/16 18:52 Dose: 20 mg Finasteride (Proscar) 5 mg PEG DAILY [facility] Last Admin: 12/25/16 11:01 Dose: 5 mg Levetiracetam (Keppra) 500 mg PEG BID [facility] Last Admin: 12/25/16 18:53 Dose: 500 mg Tamsulosin HCl (Flomax) 0.8 mg PEG DAILY [facility] Last Admin: 12/25/16 11:00 Dose: 0.8 mg - Labs Labs: 12/21/16 07:39 12/21/16 07:39 PT 10.6 SECONDS (9.7-12.2) 11/24/15 14:10 INR 1.0 11/24/15 14:10 APTT 25 SECONDS (21-34) 11/24/15 14:10 - Head Exam Head Exam: ATRAUMATIC, NORMOCEPHALIC - Eye Exam Eye Exam: Normal appearance. absent: Scleral icterus - ENT Exam ENT Exam: Mucous Membranes Moist - Neck Exam Additional comments: Tracheostomy present - Respiratory Exam Additional comments: No wheezing and no rhonchi - Cardiovascular Exam Cardiovascular Exam: REGULAR RHYTHM, +S1, +S2 - GI/Abdominal Exam GI & Abdominal Exam: Soft Additional comments: PEG present - Extremities Exam Extremities Exam: absent: Pedal Edema Assessment and Plan - Assessment and Plan (Free Text) Plan: No acute changes, continue weekly labs on Mondays Turn Q2 hours- Continue to monitor Isosource feeds through PEG @ 60cc/hr per Nutrition recommendations Continue trach suctioning as needed Pending long-term facility placement UTI Triple lumen Yoo in place for irrigation Urine Culture 12/03/16 - Positive Kleb pneumo, sensitive to cipro - resolved. Off antibiotics now patient is on CBI Sacral Ulcers Stage I ulcer present, about 2 cm in length at upper sacral crease; area frequently alternates between Stage I and healed ulcer. Continue frequent turning, protective ointment and skin checks. Urinary Retention Flomax 0.8mg PEG daily Proscar 5mg PO daily Bethanecol 20 mg PO TID- started after persistent retention (before current UTI ) and found to be effective. monitor I's and O's Respiratory failure trach collar in place - normal resp pattern, thick secretions CAD (coronary artery disease) s/p cardiac stents on 06/13/15 ASA 81mg via PEG daily Coreg 3.125mg PEG BID Seizures Keppra 500mg PEG BID for seizure prophylaxis Lower extremity edema Lasix via PEG as needed. Prophylactic measure Pepcid 20 mg PEG BID Lovenox 40mg SC daily Sennosides 8.6mg PEG daily SCDs and offloading boots Continue to monitor medication administrations and clinical presentation
[2016-12-26] MEDS: levETIRAcetam 100 mg/ml (5ml) Oral Syringe PEG SCH ×2 (11:58→19:05)
[2016-12-26] MEDS: Enoxaparin 40 mg Syringe SC SCH (11:58)
--- NOTE | 2016-12-27 02:12 | CP.PCM.PN ---
<Saurabh Carmichael - Last Filed: 12/27/16 02:12> Subjective - Date & Time of Evaluation Date of Evaluation: 12/27/16 Time of Evaluation: 12:20 - Subjective Subjective: PGY-[address] Ying's service: Patient seen and examined at bedside. Patient resting comfortably, in no acute distress. Nursing reports no acute events overnight. CBI in progress draining clear yellow output. Objective - Vital Signs/Intake and Output Vital Signs (last 24 hours): Temp Pulse Resp BP Pulse Ox 98.2 F 88 20 97/60 L 98 12/27/16 00:03 12/27/16 00:03 12/27/16 00:03 12/27/16 00:03 12/27/16 00:03 Intake and Output: 12/26/16 12/27/16 18:59 06:59 Intake Total 2080 480 Output Total 3850 825 Balance -1770 -345 - Medications Medications: Current Medications Aspirin (Aspirin Chewable) 81 mg PEG DAILY [facility] Last Admin: 12/26/16 11:57 Dose: 81 mg Bethanechol Chloride (Urecholine) 20 mg PEG TID [facility] Last Admin: 12/26/16 19:05 Dose: 20 mg Carvedilol (Coreg) 3.125 mg PEG BID [facility] Last Admin: 12/26/16 19:05 Dose: 3.125 mg Clopidogrel Bisulfate (Plavix) 75 mg PO DAILY [facility] Last Admin: 12/26/16 11:58 Dose: 75 mg Famotidine (Pepcid) 20 mg PEG BID [facility] Last Admin: 12/26/16 19:05 Dose: 20 mg Finasteride (Proscar) 5 mg PEG DAILY [facility] Last Admin: 12/26/16 11:59 Dose: 5 mg Levetiracetam (Keppra) 500 mg PEG BID [facility] Last Admin: 12/26/16 19:05 Dose: 500 mg Tamsulosin HCl (Flomax) 0.8 mg PEG DAILY [facility] Last Admin: 12/26/16 11:57 Dose: 0.8 mg - Labs Labs: 12/21/16 07:39 12/21/16 07:39 PT 10.6 SECONDS (9.7-12.2) 11/24/15 14:10 INR 1.0 11/24/15 14:10 APTT 25 SECONDS (21-34) 11/24/15 14:10 - Constitutional Appears: No Acute Distress, Chronically Ill - Head Exam Head Exam: ATRAUMATIC, NORMOCEPHALIC - Neck Exam Additional comments: trach collar in place - Respiratory Exam Respiratory Exam: Clear to Ausculation Bilateral. absent: Rhonchi, Wheezes - Cardiovascular Exam Cardiovascular Exam: REGULAR RHYTHM, +S1, +S2 - GI/Abdominal Exam GI & Abdominal Exam: Soft, Normal Bowel Sounds. absent: Distended Additional comments: PEG tube in place - Extremities Exam Extremities Exam: absent: Pedal Edema - Back Exam Back Exam: absent: CVA tenderness (L), CVA tenderness (R) - Skin Skin Exam: Normal Color, Warm Assessment and Plan - Assessment and Plan (Free Text) Assessment: No acute changes, continue weekly labs on Mondays Turn Q2 hours- Continue to monitor Isosource feeds through PEG @ 60cc/hr per Nutrition recommendations Continue trach suctioning as needed Pending fdc facility placement UTI Triple lumen Yoo in place for irrigation Urine Culture 12/03/16 - Positive Kleb pneumo, sensitive to cipro - resolved. Off antibiotics now patient is on CBI Sacral Ulcers Stage I ulcer present, about 2 cm in length at upper sacral crease; area frequently alternates between Stage I and healed ulcer. Continue frequent turning, protective ointment and skin checks. Urinary Retention Flomax 0.8mg PEG daily Proscar 5mg PO daily Bethanecol 20 mg PO TID- started after persistent retention (before current UTI ) and found to be effective. monitor I's and O's Respiratory failure trach collar in place - normal resp pattern, thick secretions CAD (coronary artery disease) s/p cardiac stents on 06/13/15 ASA 81mg via PEG daily Coreg 3.125mg PEG BID Seizures Keppra 500mg PEG BID for seizure prophylaxis Lower extremity edema Lasix via PEG as needed. Prophylactic measure Pepcid 20 mg PEG BID Lovenox 40mg SC daily Sennosides 8.6mg PEG daily SCDs and offloading boots Continue to monitor medication administrations and clinical presentation <Donnell Ying - Last Filed: 12/28/16 08:43> Objective - Vital Signs/Intake and Output Vital Signs (last 24 hours): Temp Pulse Resp BP Pulse Ox 97.8 F 72 20 119/77 98 12/28/16 07:49 12/28/16 07:49 12/28/16 07:49 12/28/16 07:49 12/28/16 07:49 Intake and Output: 12/28/16 12/28/16 06:59 18:59 Intake Total 680 Output Total 500 Balance 180 - Medications Medications: Current Medications Aspirin (Aspirin Chewable) 81 mg PEG DAILY [facility] Last Admin: 12/27/16 09:15 Dose: 81 mg Bethanechol Chloride (Urecholine) 20 mg PEG TID [facility] Last Admin: 12/27/16 18:17 Dose: 20 mg Carvedilol (Coreg) 3.125 mg PEG BID [facility] Last Admin: 12/27/16 18:16 Dose: 3.125 mg Clopidogrel Bisulfate (Plavix) 75 mg PO DAILY [facility] Last Admin: 12/27/16 09:16 Dose: 75 mg Famotidine (Pepcid) 20 mg PEG BID [facility] Last Admin: 12/27/16 18:17 Dose: 20 mg Finasteride (Proscar) 5 mg PEG DAILY [facility] Last Admin: 12/27/16 09:16 Dose: 5 mg Levetiracetam (Keppra) 500 mg PEG BID [facility] Last Admin: 12/27/16 18:14 Dose: 500 mg Tamsulosin HCl (Flomax) 0.8 mg PEG DAILY [facility] Last Admin: 12/27/16 09:16 Dose: 0.8 mg - Labs Labs: 12/21/16 07:39 12/21/16 07:39 PT 10.6 SECONDS (9.7-12.2) 11/24/15 14:10 INR 1.0 11/24/15 14:10 APTT 25 SECONDS (21-34) 11/24/15 14:10 Attending/Attestation - Attestation I have personally seen and examined this patient.: Yes I have fully participated in the care of the patient.: Yes I have reviewed all pertinent clinical information, including history, physical exam and plan: Yes Notes (Text): 12/28/16 08:43 Patient was seen and examined at bedside No change in clinical condition Continue current management Turn and position every 2 hours
[2016-12-27] MEDS: levETIRAcetam 100 mg/ml (5ml) Oral Syringe PEG SCH ×2 (09:16→18:14)
--- NOTE | 2016-12-28 00:04 | CP.PCM.PN ---
<Saurabh Carmichael - Last Filed: 12/28/16 00:01> Subjective - Date & Time of Evaluation Date of Evaluation: 12/28/16 Time of Evaluation: 12:00 - Subjective Subjective: PGY-[address] Ying's service: Patient seen and examined at bedside. Patient resting comfortably, in no acute distress. Nursing reports no acute events overnight. CBI in progress draining clear yellow output. Objective - Vital Signs/Intake and Output Vital Signs (last 24 hours): Temp Pulse Resp BP Pulse Ox 97.6 F 74 18 120/73 98 12/27/16 15:00 12/27/16 15:00 12/27/16 15:00 12/27/16 15:00 12/27/16 15:00 Intake and Output: 12/27/16 12/28/16 18:59 06:59 Intake Total 2160 Output Total 1650 Balance 510 - Medications Medications: Current Medications Aspirin (Aspirin Chewable) 81 mg PEG DAILY [facility] Last Admin: 12/27/16 09:15 Dose: 81 mg Bethanechol Chloride (Urecholine) 20 mg PEG TID [facility] Last Admin: 12/27/16 18:17 Dose: 20 mg Carvedilol (Coreg) 3.125 mg PEG BID [facility] Last Admin: 12/27/16 18:16 Dose: 3.125 mg Clopidogrel Bisulfate (Plavix) 75 mg PO DAILY [facility] Last Admin: 12/27/16 09:16 Dose: 75 mg Famotidine (Pepcid) 20 mg PEG BID [facility] Last Admin: 12/27/16 18:17 Dose: 20 mg Finasteride (Proscar) 5 mg PEG DAILY [facility] Last Admin: 12/27/16 09:16 Dose: 5 mg Levetiracetam (Keppra) 500 mg PEG BID [facility] Last Admin: 12/27/16 18:14 Dose: 500 mg Tamsulosin HCl (Flomax) 0.8 mg PEG DAILY [facility] Last Admin: 12/27/16 09:16 Dose: 0.8 mg - Labs Labs: 12/21/16 07:39 12/21/16 07:39 PT 10.6 SECONDS (9.7-12.2) 11/24/15 14:10 INR 1.0 11/24/15 14:10 APTT 25 SECONDS (21-34) 11/24/15 14:10 - Constitutional Appears: No Acute Distress, Chronically Ill - Head Exam Head Exam: ATRAUMATIC, NORMOCEPHALIC - Neck Exam Additional comments: trach collar in place - thin clear secretions noted - Respiratory Exam Respiratory Exam: Clear to Ausculation Bilateral. absent: Rhonchi, Wheezes - Cardiovascular Exam Cardiovascular Exam: REGULAR RHYTHM, +S1, +S2 - GI/Abdominal Exam GI & Abdominal Exam: Soft, Normal Bowel Sounds. absent: Distended Additional comments: PEG tube in place - Extremities Exam Extremities Exam: absent: Pedal Edema - Neurological Exam Neurological Exam: Alert. 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 Off antibiotics now patient is on CBI Sacral Ulcers Stage I ulcer present, about 2 cm in length at upper sacral crease; area frequently alternates between Stage I and healed ulcer. Continue frequent turning, protective ointment and skin checks. Urinary Retention Flomax 0.8mg PEG daily Proscar 5mg PO daily Bethanecol 20 mg PO TID- started after persistent retention (before current UTI ) and found to be effective. monitor I's and O's Respiratory failure trach collar in place - normal resp pattern, thick secretions CAD (coronary artery disease) s/p cardiac stents on 06/13/15 ASA 81mg via PEG daily Coreg 3.125mg PEG BID Seizures Keppra 500mg PEG BID for seizure prophylaxis Lower extremity edema Lasix via PEG as needed. Prophylactic measure Pepcid 20 mg PEG BID Lovenox 40mg SC daily Sennosides 8.6mg PEG daily SCDs and offloading boots Continue to monitor medication administrations and clinical presentation <Donnell Ying - Last Filed: 12/28/16 15:38> Objective - Vital Signs/Intake and Output Vital Signs (last 24 hours): Temp Pulse Resp BP Pulse Ox 97.8 F 72 20 119/77 98 12/28/16 07:49 12/28/16 07:49 12/28/16 07:49 12/28/16 07:49 12/28/16 07:49 Intake and Output: 12/28/16 12/28/16 06:59 18:59 Intake Total 680 Output Total 500 Balance 180 - Medications Medications: Current Medications Aspirin (Aspirin Chewable) 81 mg PEG DAILY [facility] Last Admin: 12/28/16 10:25 Dose: 81 mg Bethanechol Chloride (Urecholine) 20 mg PEG TID [facility] Last Admin: 12/28/16 15:06 Dose: 20 mg Carvedilol (Coreg) 3.125 mg PEG BID [facility] Last Admin: 12/28/16 10:29 Dose: 3.125 mg Clopidogrel Bisulfate (Plavix) 75 mg PO DAILY [facility] Last Admin: 12/28/16 10:25 Dose: 75 mg Famotidine (Pepcid) 20 mg PEG BID [facility] Last Admin: 12/28/16 10:25 Dose: 20 mg Finasteride (Proscar) 5 mg PEG DAILY [facility] Last Admin: 12/28/16 11:23 Dose: Not Given Levetiracetam (Keppra) 500 mg PEG BID [facility] Last Admin: 12/28/16 10:25 Dose: 500 mg Tamsulosin HCl (Flomax) 0.8 mg PEG DAILY [facility] Last Admin: 12/28/16 10:25 Dose: 0.8 mg - Labs Labs: 12/21/16 07:39 12/21/16 07:39 PT 10.6 SECONDS (9.7-12.2) 11/24/15 14:10 INR 1.0 11/24/15 14:10 APTT 25 SECONDS (21-34) 11/24/15 14:10 Attending/Attestation - Attestation I have personally seen and examined this patient.: Yes I have fully participated in the care of the patient.: Yes I have reviewed all pertinent clinical information, including history, physical exam and plan: Yes Notes (Text): 12/28/16 15:37 Patient was seen and examined at bedside There is no change in clinical condition Continue current management Turn and position every 2 hours Awaiting placement
[2016-12-28] MEDS: levETIRAcetam 100 mg/ml (5ml) Oral Syringe PEG SCH ×2 (10:25→18:18)
--- NOTE | 2016-12-28 18:22 | CP.PCM.PN ---
Subjective - Date & Time of Evaluation Date of Evaluation: 12/28/16 Time of Evaluation: 09:00 - Subjective Subjective: Patient resting comfortably, in no acute distress. cbi in progress consider adding neosporin one amp to each 3 l bag of infusate Objective - Vital Signs/Intake and Output Vital Signs (last 24 hours): Temp Pulse Resp BP Pulse Ox 98.6 F 88 20 95/60 L 95 12/28/16 16:07 12/28/16 16:07 12/28/16 16:07 12/28/16 16:07 12/28/16 16:07 Intake and Output: 12/28/16 12/28/16 06:59 18:59 Intake Total 680 680 Output Total 500 Balance 180 680 - Medications Medications: Current Medications Aspirin (Aspirin Chewable) 81 mg PEG DAILY [facility] Last Admin: 12/28/16 10:25 Dose: 81 mg Bethanechol Chloride (Urecholine) 20 mg PEG TID [facility] Last Admin: 12/28/16 15:06 Dose: 20 mg Carvedilol (Coreg) 3.125 mg PEG BID [facility] Last Admin: 12/28/16 10:29 Dose: 3.125 mg Clopidogrel Bisulfate (Plavix) 75 mg PO DAILY [facility] Last Admin: 12/28/16 10:25 Dose: 75 mg Enoxaparin Sodium (Lovenox) 40 mg SC DAILY [facility] Famotidine (Pepcid) 20 mg PEG BID [facility] Last Admin: 12/28/16 10:25 Dose: 20 mg Finasteride (Proscar) 5 mg PEG DAILY [facility] Last Admin: 12/28/16 11:23 Dose: Not Given Levetiracetam (Keppra) 500 mg PEG BID [facility] Tamsulosin HCl (Flomax) 0.8 mg PEG DAILY [facility] Last Admin: 12/28/16 10:25 Dose: 0.8 mg - Labs Labs: 12/21/16 07:39 12/21/16 07:39 PT 10.6 SECONDS (9.7-12.2) 11/24/15 14:10 INR 1.0 11/24/15 14:10 APTT 25 SECONDS (21-34) 11/24/15 14:10 - Constitutional Appears: Confused, Chronically Ill - Head Exam Head Exam: NORMOCEPHALIC - Eye Exam Eye Exam: absent: Scleral icterus - ENT Exam ENT Exam: Mucous Membranes Dry - Neck Exam Neck Exam: absent: Lymphadenopathy, Thyromegaly - Respiratory Exam Respiratory Exam: Decreased Breath Sounds - Cardiovascular Exam Cardiovascular Exam: REGULAR RHYTHM
[2016-12-29 08:47] LABS: BASO # 0.1 K/uL (0.0-0.2); BASO % 0.5 % (0.0-2.0); EOS # 0.4 K/uL (0.0-0.7); EOS % 3.3 % (0.0-4.0); HEMOGLOBIN 12.6 g/dL (12.0-18.0); LYMPH # 2.6 K/uL (1.0-4.3); LYMPH % 22.2 % (20.0-40.0); MEAN CELL VOLUME 87.3 fL (80.0-94.0); MEAN CORPUSCULAR HEMOGLOBIN 28.7 pg (27.0-31.0); MEAN CORPUSCULAR HGB CONC 32.8 g/dL (33.0-37.0); MEAN PLATELET VOLUME 9.4 fL (7.2-11.7); MONO # 1.2 K/uL (0.0-0.8); MONO % 9.8 % (0.0-10.0); NEUT # 7.6 K/uL (1.8-7.0); NEUT % 64.2 % (50.0-75.0); NRBC % 0.1 % (0.0-2.0); RBC 4.4 Mil/uL (4.40-5.90); RED CELL DISTRIBUTION WIDTH 16.1 % (11.5-14.5); WHITE BLOOD COUNT 11.9 K/uL (4.8-10.8)
[2016-12-29 08:48] LABS: ALBUMIN 3.7 g/dL (3.5-5.0)
[2016-12-29 08:51] LABS: ALB/GLOB RATIO 0.8 (1.0-2.1); ALT/SGPT 51 U/L (21-72); AST/SGOT 32 U/L (17-59); BLOOD UREA NITROGEN 23 mg/dL (9-20); GFR NON-AFRICAN AMERICAN > 60
[2016-12-29 08:52] LABS: CALCIUM 8.5 mg/dl (8.6-10.4)
[2016-12-29] MEDS: Enoxaparin 40 mg Syringe SC SCH (11:11)
[2016-12-29] MEDS: levETIRAcetam 100 mg/ml (5ml) Oral Syringe PEG SCH ×2 (11:12→18:25)
--- NOTE | 2016-12-29 15:12 | CP.PCM.PN ---
<Carlos Dumont - Last Filed: 12/29/16 22:09> Subjective - Date & Time of Evaluation Date of Evaluation: 12/29/16 Time of Evaluation: 09:35 - Subjective Subjective: Patient seen and examined at bedside. Patient resting comfortably, in no acute distress. Nursing reports no acute events overnight. CBI in progress draining clear yellow output. Stage one ulcer around sacral area. Objective - Vital Signs/Intake and Output Vital Signs (last 24 hours): Temp Pulse Resp BP Pulse Ox 98 F 86 20 110/77 98 12/29/16 08:02 12/29/16 08:02 12/29/16 08:02 12/29/16 08:02 12/29/16 08:02 Intake and Output: 12/29/16 12/29/16 06:59 18:59 Intake Total 1360 Output Total 1701 900 Balance -341 -900 - Medications Medications: Current Medications Aspirin (Aspirin Chewable) 81 mg PEG DAILY [facility] Last Admin: 12/29/16 11:12 Dose: 81 mg Bethanechol Chloride (Urecholine) 20 mg PEG TID [facility] Last Admin: 12/29/16 13:54 Dose: 20 mg Carvedilol (Coreg) 3.125 mg PEG BID [facility] Last Admin: 12/29/16 11:11 Dose: 3.125 mg Clopidogrel Bisulfate (Plavix) 75 mg PO DAILY [facility] Last Admin: 12/29/16 11:12 Dose: 75 mg Enoxaparin Sodium (Lovenox) 40 mg SC DAILY [facility] Last Admin: 12/29/16 11:11 Dose: 40 mg Famotidine (Pepcid) 20 mg PEG BID [facility] Last Admin: 12/29/16 11:11 Dose: 20 mg Finasteride (Proscar) 5 mg PEG DAILY [facility] Last Admin: 12/29/16 11:22 Dose: 5 mg Levetiracetam (Keppra) 500 mg PEG BID [facility] Last Admin: 12/29/16 11:12 Dose: 500 mg - Labs Labs: 12/29/16 08:24 12/29/16 08:24 PT 10.6 SECONDS (9.7-12.2) 11/24/15 14:10 INR 1.0 11/24/15 14:10 APTT 25 SECONDS (21-34) 11/24/15 14:10 - Constitutional Appears: No Acute Distress, Chronically Ill - Head Exam Head Exam: ATRAUMATIC - ENT Exam ENT Exam: Mucous Membranes Moist - Respiratory Exam Respiratory Exam: Clear to Ausculation Bilateral, NORMAL BREATHING PATTERN - Cardiovascular Exam Cardiovascular Exam: REGULAR RHYTHM, RRR, +S1, +S2. absent: JVD - GI/Abdominal Exam GI & Abdominal Exam: Soft, Tenderness, Normal Bowel Sounds - Back Exam Additional comments: stage one sacral ulcer - Skin Skin Exam: Dry, Intact, Normal Color, Warm Assessment and Plan - Assessment and Plan (Free Text) Assessment: No acute changes, continue weekly labs on Mondays Turn Q2 hours- Continue to monitor Isosource feeds through PEG @ 60cc/hr per Nutrition recommendations Continue trach suctioning as needed Pending longterm facility placement Plan: UTI Triple lumen Yoo in place for irrigation, add neosporin to CBI Urine Culture 12/03/16 - Positive Kleb pneumo, sensitive to cipro - resolved. Off antibiotics now Sacral Ulcers Stage I ulcer present, about 2 cm in length at upper sacral crease; area frequently alternates between Stage I and healed ulcer. Continue frequent turning, protective ointment and skin checks. Urinary Retention Flomax 0.8mg PEG daily Proscar 5mg PO daily Bethanecol 20 mg PO TID- started after persistent retention (before current UTI ) and found to be effective. monitor I's and O's Respiratory failure trach collar in place - normal resp pattern, thick secretions CAD (coronary artery disease) s/p cardiac stents on 06/13/15 ASA 81mg via PEG daily Coreg 3.125mg PEG BID Seizures Keppra 500mg PEG BID for seizure prophylaxis Lower extremity edema Lasix via PEG as needed. 2/6 no edema Possible Hypernatremia increased free water flushes from 300q8 to 300q6 Prophylactic measure Pepcid 20 mg PEG BID Lovenox 40mg SC daily Sennosides 8.6mg PEG daily SCDs and offloading boots Continue to monitor medication administrations and clinical presentation <Nathaniel Beth - Last Filed: 03/02/17 08:19> Objective - Vital Signs/Intake and Output Vital Signs (last 24 hours): Temp Pulse Resp BP Pulse Ox 99.7 F H 86 20 119/52 L 97 12/29/16 16:00 12/29/16 16:40 12/29/16 16:00 12/29/16 16:00 12/29/16 16:00 Intake and Output: 12/29/16 12/30/16 18:59 06:59 Intake Total 480 Output Total 2100 Balance -1620 - Medications Medications: Current Medications Aspirin (Aspirin Chewable) 81 mg PEG DAILY [facility] Last Admin: 12/29/16 11:12 Dose: 81 mg Bethanechol Chloride (Urecholine) 20 mg PEG TID [facility] Last Admin: 12/29/16 18:26 Dose: 20 mg Carvedilol (Coreg) 3.125 mg PEG BID [facility] Last Admin: 12/29/16 18:27 Dose: 3.125 mg Clopidogrel Bisulfate (Plavix) 75 mg PO DAILY [facility] Last Admin: 12/29/16 11:12 Dose: 75 mg Enoxaparin Sodium (Lovenox) 40 mg SC DAILY [facility] Last Admin: 12/29/16 11:11 Dose: 40 mg Famotidine (Pepcid) 20 mg PEG BID [facility] Last Admin: 12/29/16 18:27 Dose: 20 mg Finasteride (Proscar) 5 mg PEG DAILY [facility] Last Admin: 12/29/16 11:22 Dose: 5 mg Levetiracetam (Keppra) 500 mg PEG BID [facility] Last Admin: 12/29/16 18:25 Dose: 500 mg - Labs Labs: 12/29/16 08:24 12/29/16 08:24 PT 10.6 SECONDS (9.7-12.2) 11/24/15 14:10 INR 1.0 11/24/15 14:10 APTT 25 SECONDS (21-34) 11/24/15 14:10 Attending/Attestation - Attestation I have personally seen and examined this patient.: Yes I have fully participated in the care of the patient.: Yes I have reviewed all pertinent clinical information, including history, physical exam and plan: Yes Notes (Text): Patient with anoxic encephalopathy following cardiac arrest; prolonged hospital course due to inability to find placement; Active issues are: Hypernatremia - Persists despite 300 cc free H20 flushes q8h; will increase to q6h; Sacral decubitus ulcer stage I - Less than 1 cm area; need to continue protective ointment and frequent re-positioning; no heel ulcers on our exam today; Recurrent UTI - Currently off all abx; on continuous bladder irrigation since , to continue till 01/07 (3 weeks per ID); ID also recommending neosporin to be mixed in CBI bag, will discuss with pharmacy; Urinary Retention - On bethanecol; continue. 12/29/16 21:24
[2016-12-30] MEDS: levETIRAcetam 100 mg/ml (5ml) Oral Syringe PEG SCH ×2 (09:08→18:09)
[2016-12-30] MEDS: Enoxaparin 40 mg Syringe SC SCH (09:08)
[2016-12-31] MEDS: Enoxaparin 40 mg Syringe SC SCH (09:51)
[2016-12-31] MEDS: levETIRAcetam 100 mg/ml (5ml) Oral Syringe PEG SCH ×2 (09:52→18:01)
--- NOTE | 2016-12-31 21:38 | CP.PCM.PN ---
<Carlos Dumont - Last Filed: 12/31/16 21:35> Subjective - Date & Time of Evaluation Date of Evaluation: 12/31/16 Time of Evaluation: 08:00 - Subjective Subjective: Patient seen and examined at bedside. Patient resting comfortably, in no acute distress. Nursing reports no acute events overnight. CBI in progress draining clear yellow output and has neosporin added. Will monitor Na and HgbA1c tomorrow morning. Objective - Vital Signs/Intake and Output Vital Signs (last 24 hours): Temp Pulse Resp BP Pulse Ox 98.4 F 68 20 118/76 97 12/31/16 17:00 12/31/16 17:00 12/31/16 17:00 12/31/16 17:00 12/31/16 17:00 Intake and Output: 12/31/16 01/01/17 18:59 06:59 Intake Total 1080 Output Total 1030 Balance 50 - Medications Medications: Current Medications Aspirin (Aspirin Chewable) 81 mg PEG DAILY [facility] Last Admin: 12/31/16 09:52 Dose: 81 mg Bethanechol Chloride (Urecholine) 20 mg PEG TID [facility] Last Admin: 12/31/16 18:01 Dose: 20 mg Carvedilol (Coreg) 3.125 mg PEG BID [facility] Last Admin: 12/31/16 18:02 Dose: 3.125 mg Clopidogrel Bisulfate (Plavix) 75 mg PO DAILY [facility] Last Admin: 12/31/16 09:52 Dose: 75 mg Enoxaparin Sodium (Lovenox) 40 mg SC DAILY [facility] Last Admin: 12/31/16 09:51 Dose: 40 mg Famotidine (Pepcid) 20 mg PEG BID [facility] Last Admin: 12/31/16 18:01 Dose: 20 mg Finasteride (Proscar) 5 mg PEG DAILY [facility] Last Admin: 12/31/16 09:51 Dose: 5 mg Levetiracetam (Keppra) 500 mg PEG BID [facility] Last Admin: 12/31/16 18:01 Dose: 500 mg - Labs Labs: 12/29/16 08:24 12/29/16 08:24 PT 10.6 SECONDS (9.7-12.2) 11/24/15 14:10 INR 1.0 11/24/15 14:10 APTT 25 SECONDS (21-34) 11/24/15 14:10 - Constitutional Appears: Non-toxic, Chronically Ill - ENT Exam ENT Exam: Mucous Membranes Moist - Respiratory Exam Respiratory Exam: Clear to Ausculation Bilateral, NORMAL BREATHING PATTERN - Cardiovascular Exam Cardiovascular Exam: REGULAR RHYTHM, RRR, +S1, +S2. absent: JVD - GI/Abdominal Exam GI & Abdominal Exam: Soft, Normal Bowel Sounds - Extremities Exam Extremities Exam: Pedal Edema. 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 Off antibiotics now Sacral Ulcers Stage I ulcer present, about 2 cm in length at upper sacral crease; area frequently alternates between Stage I and healed ulcer. Continue frequent turning, protective ointment and skin checks. Urinary Retention Flomax 0.8mg PEG daily Proscar 5mg PO daily Bethanecol 20 mg PO TID- started after persistent retention (before current UTI ) and found to be effective. monitor I's and O's Respiratory failure trach collar in place - normal resp pattern, thick secretions CAD (coronary artery disease) s/p cardiac stents on 06/13/15 ASA 81mg via PEG daily Coreg 3.125mg PEG BID Seizures Keppra 500mg PEG BID for seizure prophylaxis Lower extremity edema Lasix via PEG as needed. 2/6 no edema 2/8 mild edema Possible Hypernatremia increased free water flushes from 300q8 to 300q6 redraw labs 01/01 Prophylactic measure Pepcid 20 mg PEG BID Lovenox 40mg SC daily Sennosides 8.6mg PEG daily SCDs and offloading boots Continue to monitor medication administrations and clinical presentation <Nathaniel Beth - Last Filed: 03/03/17 07:59> Objective - Vital Signs/Intake and Output Vital Signs (last 24 hours): Temp Pulse Resp BP Pulse Ox 98.7 F 80 20 115/79 97 03/03/17 07:40 03/03/17 07:40 03/03/17 07:40 03/03/17 07:40 03/03/17 07:40 Intake and Output: 03/03/17 03/03/17 06:59 18:59 Intake Total 1760 Output Total 900 Balance 860 - Medications Medications: Current Medications Aspirin (Aspirin Chewable) 81 mg PEG DAILY [facility] Last Admin: 03/02/17 09:26 Dose: 81 mg Bethanechol Chloride (Urecholine) 50 mg PEG TID [facility] Last Admin: 03/02/17 18:41 Dose: 50 mg Bisacodyl (Dulcolax) 5 mg PO Q72H PRN PRN Reason: Constipation Carvedilol (Coreg) 3.125 mg PEG BID [facility] Last Admin: 03/02/17 18:40 Dose: 3.125 mg Clopidogrel Bisulfate (Plavix) 75 mg PEG DAILY [facility] Last Admin: 03/02/17 09:26 Dose: 75 mg Emollient Ointment (Vaseline Oint) 5 gm TOP BID PRN PRN Reason: Dry skin Enoxaparin Sodium (Lovenox) 40 mg SC DAILY [facility] Last Admin: 03/02/17 09:27 Dose: 40 mg Famotidine (Pepcid) 20 mg PEG BID [facility] Last Admin: 03/02/17 18:40 Dose: 20 mg Finasteride (Proscar) 5 mg PEG DAILY [facility] Last Admin: 03/02/17 09:26 Dose: 5 mg Levetiracetam (Keppra) 500 mg PEG BID [facility] Last Admin: 03/02/17 18:40 Dose: 500 mg Tamsulosin HCl (Flomax) 0.4 mg PEG DAILY [facility] Last Admin: 03/02/17 09:27 Dose: 0.4 mg - Labs Labs: 03/02/17 06:03 03/02/17 06:03 PT 10.6 SECONDS (9.7-12.2) 11/24/15 14:10 INR 1.0 11/24/15 14:10 APTT 25 SECONDS (21-34) 11/24/15 14:10 Attending/Attestation - Attestation I have personally seen and examined this patient.: Yes I have fully participated in the care of the patient.: Yes I have reviewed all pertinent clinical information, including history, physical exam and plan: Yes
--- NOTE | 2017-01-01 05:51 | CP.PCM.PN ---
<Carlos Dumont - Last Filed: 01/01/17 20:08> Subjective - Date & Time of Evaluation Date of Evaluation: 01/01/17 Time of Evaluation: 08:50 - Subjective Subjective: Patient seen and examined at bedside. Patient resting comfortably, in no acute distress. Nursing reports no acute events overnight. CBI in progress draining clear yellow output. Na came back at 144, will continue free water flushes 300q6 and HgbA1c was 5.8. Objective - Vital Signs/Intake and Output Vital Signs (last 24 hours): Temp Pulse Resp BP Pulse Ox 97.8 F 96 H 20 105/69 98 01/01/17 00:42 01/01/17 00:42 01/01/17 00:42 01/01/17 00:42 01/01/17 00:42 Intake and Output: 12/31/16 01/01/17 18:59 06:59 Intake Total 1080 780 Output Total 1030 550 Balance 50 230 - Medications Medications: Current Medications Aspirin (Aspirin Chewable) 81 mg PEG DAILY [facility] Last Admin: 12/31/16 09:52 Dose: 81 mg Bethanechol Chloride (Urecholine) 20 mg PEG TID [facility] Last Admin: 12/31/16 18:01 Dose: 20 mg Carvedilol (Coreg) 3.125 mg PEG BID [facility] Last Admin: 12/31/16 18:02 Dose: 3.125 mg Clopidogrel Bisulfate (Plavix) 75 mg PO DAILY [facility] Last Admin: 12/31/16 09:52 Dose: 75 mg Enoxaparin Sodium (Lovenox) 40 mg SC DAILY [facility] Last Admin: 12/31/16 09:51 Dose: 40 mg Famotidine (Pepcid) 20 mg PEG BID [facility] Last Admin: 12/31/16 18:01 Dose: 20 mg Finasteride (Proscar) 5 mg PEG DAILY [facility] Last Admin: 12/31/16 09:51 Dose: 5 mg Levetiracetam (Keppra) 500 mg PEG BID [facility] Last Admin: 12/31/16 18:01 Dose: 500 mg - Labs Labs: 12/29/16 08:24 12/29/16 08:24 PT 10.6 SECONDS (9.7-12.2) 11/24/15 14:10 INR 1.0 11/24/15 14:10 APTT 25 SECONDS (21-34) 11/24/15 14:10 - Constitutional Appears: Chronically Ill - Head Exam Head Exam: ATRAUMATIC, NORMOCEPHALIC - ENT Exam ENT Exam: Mucous Membranes Moist - Neck Exam Neck Exam: absent: Lymphadenopathy - Respiratory Exam Respiratory Exam: Clear to Ausculation Bilateral, NORMAL BREATHING PATTERN - Cardiovascular Exam Cardiovascular Exam: REGULAR RHYTHM - GI/Abdominal Exam GI & Abdominal Exam: Soft, Normal Bowel Sounds - Psychiatric Exam Additional comments: anoxic brain injury - Skin Skin Exam: Dry, Intact, Pallor Assessment and Plan - Assessment and Plan (Free Text) Assessment: No acute changes, continue weekly labs on Mondays Turn Q2 hours- Continue to monitor Isosource feeds through PEG @ 60cc/hr per Nutrition recommendations Continue trach suctioning as needed 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 Off antibiotics now Sacral Ulcers Stage I ulcer present, about 2 cm in length at upper sacral crease; area frequently alternates between Stage I and healed ulcer. Continue frequent turning, protective ointment and skin checks. Urinary Retention Flomax 0.8mg PEG daily Proscar 5mg PO daily Bethanecol 20 mg PO TID- started after persistent retention (before current UTI ) and found to be effective. monitor I's and O's Respiratory failure trach collar in place - normal resp pattern, thick secretions CAD (coronary artery disease) s/p cardiac stents on 06/13/15 ASA 81mg via PEG daily Coreg 3.125mg PEG BID Seizures Keppra 500mg PEG BID for seizure prophylaxis Lower extremity edema Lasix via PEG as needed. 2/6 no edema 2/8 mild edema Possible Hypernatremia increased free water flushes from 300q8 to 300q6 labs 01/01 Na of 144, will keep 300q6 free water flushes Prophylactic measure Pepcid 20 mg PEG BID Lovenox 40mg SC daily Sennosides 8.6mg PEG daily SCDs and offloading boots Continue to monitor medication administrations and clinical presentation <Nathaniel Beth - Last Filed: 03/03/17 08:04> Objective - Vital Signs/Intake and Output Vital Signs (last 24 hours): Temp Pulse Resp BP Pulse Ox 98.7 F 80 20 115/79 97 03/03/17 07:40 03/03/17 07:59 03/03/17 07:40 03/03/17 07:40 03/03/17 07:40 Intake and Output: 03/03/17 03/03/17 06:59 18:59 Intake Total 1760 Output Total 900 Balance 860 - Medications Medications: Current Medications Aspirin (Aspirin Chewable) 81 mg PEG DAILY [facility] Last Admin: 03/02/17 09:26 Dose: 81 mg Bethanechol Chloride (Urecholine) 50 mg PEG TID [facility] Last Admin: 03/02/17 18:41 Dose: 50 mg Bisacodyl (Dulcolax) 5 mg PO Q72H PRN PRN Reason: Constipation Carvedilol (Coreg) 3.125 mg PEG BID [facility] Last Admin: 03/02/17 18:40 Dose: 3.125 mg Clopidogrel Bisulfate (Plavix) 75 mg PEG DAILY [facility] Last Admin: 03/02/17 09:26 Dose: 75 mg Emollient Ointment (Vaseline Oint) 5 gm TOP BID PRN PRN Reason: Dry skin Enoxaparin Sodium (Lovenox) 40 mg SC DAILY [facility] Last Admin: 03/02/17 09:27 Dose: 40 mg Famotidine (Pepcid) 20 mg PEG BID [facility] Last Admin: 03/02/17 18:40 Dose: 20 mg Finasteride (Proscar) 5 mg PEG DAILY [facility] Last Admin: 03/02/17 09:26 Dose: 5 mg Levetiracetam (Keppra) 500 mg PEG BID [facility] Last Admin: 03/02/17 18:40 Dose: 500 mg Tamsulosin HCl (Flomax) 0.4 mg PEG DAILY [facility] Last Admin: 03/02/17 09:27 Dose: 0.4 mg - Labs Labs: 03/02/17 06:03 03/02/17 06:03 PT 10.6 SECONDS (9.7-12.2) 11/24/15 14:10 INR 1.0 11/24/15 14:10 APTT 25 SECONDS (21-34) 11/24/15 14:10 Attending/Attestation - Attestation I have personally seen and examined this patient.: Yes I have fully participated in the care of the patient.: Yes I have reviewed all pertinent clinical information, including history, physical exam and plan: Yes
[2017-01-01 09:03] LABS: BLOOD UREA NITROGEN 21 mg/dL (9-20); GFR NON-AFRICAN AMERICAN > 60
[2017-01-01 09:04] LABS: CALCIUM 8.5 mg/dl (8.6-10.4)
[2017-01-01] MEDS: Enoxaparin 40 mg Syringe SC SCH (11:01)
[2017-01-01] MEDS: levETIRAcetam 100 mg/ml (5ml) Oral Syringe PEG SCH ×2 (11:01→18:42)
--- NOTE | 2017-01-01 20:05 | CP.PCM.PN ---
<Carlos Dumont - Last Filed: 01/01/17 20:02> Subjective - Date & Time of Evaluation Date of Evaluation: 12/30/16 Time of Evaluation: 06:55 - Subjective Subjective: Patient seen and examined at bedside. Patient resting comfortably, in no acute distress. Nursing reports no acute events overnight. CBI in progress draining clear yellow output. Stage one ulcer around sacral area. Objective - Vital Signs/Intake and Output Vital Signs (last 24 hours): Temp Pulse Resp BP Pulse Ox 98.4 F 96 H 20 130/77 98 01/01/17 16:00 01/01/17 16:00 01/01/17 16:00 01/01/17 16:00 01/01/17 16:00 Intake and Output: 01/01/17 01/02/17 18:59 06:59 Intake Total 480 Output Total 550 Balance -70 - Medications Medications: Current Medications Aspirin (Aspirin Chewable) 81 mg PEG DAILY [facility] Last Admin: 01/01/17 11:01 Dose: 81 mg Bethanechol Chloride (Urecholine) 20 mg PEG TID [facility] Last Admin: 01/01/17 18:42 Dose: 20 mg Carvedilol (Coreg) 3.125 mg PEG BID [facility] Last Admin: 01/01/17 18:41 Dose: 3.125 mg Clopidogrel Bisulfate (Plavix) 75 mg PO DAILY [facility] Last Admin: 01/01/17 11:01 Dose: 75 mg Enoxaparin Sodium (Lovenox) 40 mg SC DAILY [facility] Last Admin: 01/01/17 11:01 Dose: 40 mg Famotidine (Pepcid) 20 mg PEG BID [facility] Last Admin: 01/01/17 18:42 Dose: 20 mg Finasteride (Proscar) 5 mg PEG DAILY [facility] Last Admin: 01/01/17 11:02 Dose: 5 mg Levetiracetam (Keppra) 500 mg PEG BID [facility] Last Admin: 01/01/17 18:42 Dose: 500 mg - Labs Labs: 12/29/16 08:24 01/01/17 08:14 PT 10.6 SECONDS (9.7-12.2) 11/24/15 14:10 INR 1.0 11/24/15 14:10 APTT 25 SECONDS (21-34) 11/24/15 14:10 - Constitutional Appears: No Acute Distress, Chronically Ill - Head Exam Head Exam: ATRAUMATIC, NORMOCEPHALIC - ENT Exam ENT Exam: Mucous Membranes Moist - Respiratory Exam Respiratory Exam: Clear to Ausculation Bilateral, NORMAL BREATHING PATTERN - Cardiovascular Exam Cardiovascular Exam: REGULAR RHYTHM, RRR, +S1, +S2 - GI/Abdominal Exam GI & Abdominal Exam: Soft, Normal Bowel Sounds - Extremities Exam Extremities Exam: absent: Joint Swelling, Pedal Edema - Skin Additional comments: stage one sacral ulcer Assessment and Plan - Assessment and Plan (Free Text) Assessment: No acute changes, continue weekly labs on Mondays Turn Q2 hours- Continue to monitor Isosource feeds through PEG @ 60cc/hr per Nutrition recommendations Continue trach suctioning as needed Pending longterm facility placement Plan: UTI Triple lumen Yoo in place for irrigation, will add neosporin to CBI per ID recs Urine Culture 12/03/16 - Positive Kleb pneumo, sensitive to cipro - resolved. Off antibiotics now Sacral Ulcers Stage I ulcer present, about 2 cm in length at upper sacral crease; area frequently alternates between Stage I and healed ulcer. Continue frequent turning, protective ointment and skin checks. Urinary Retention Flomax 0.8mg PEG daily Proscar 5mg PO daily Bethanecol 20 mg PO TID- started after persistent retention (before current UTI ) and found to be effective. monitor I's and O's Respiratory failure trach collar in place - normal resp pattern, thick secretions CAD (coronary artery disease) s/p cardiac stents on 06/13/15 ASA 81mg via PEG daily Coreg 3.125mg PEG BID Seizures Keppra 500mg PEG BID for seizure prophylaxis Lower extremity edema Lasix via PEG as needed. 12/29 no edema Possible Hypernatremia increased free water flushes from 300q8 to 300q6 f/u BMP on 01/01 Prophylactic measure Pepcid 20 mg PEG BID Lovenox 40mg SC daily Sennosides 8.6mg PEG daily SCDs and offloading boots Continue to monitor medication administrations and clinical presentation <Nathaniel Beth - Last Filed: 03/03/17 08:04> Objective - Vital Signs/Intake and Output Vital Signs (last 24 hours): Temp Pulse Resp BP Pulse Ox 98.7 F 80 20 115/79 97 03/03/17 07:40 03/03/17 07:59 03/03/17 07:40 03/03/17 07:40 03/03/17 07:40 Intake and Output: 03/03/17 03/03/17 06:59 18:59 Intake Total 1760 Output Total 900 Balance 860 - Medications Medications: Current Medications Aspirin (Aspirin Chewable) 81 mg PEG DAILY [facility] Last Admin: 03/02/17 09:26 Dose: 81 mg Bethanechol Chloride (Urecholine) 50 mg PEG TID [facility] Last Admin: 03/02/17 18:41 Dose: 50 mg Bisacodyl (Dulcolax) 5 mg PO Q72H PRN PRN Reason: Constipation Carvedilol (Coreg) 3.125 mg PEG BID [facility] Last Admin: 03/02/17 18:40 Dose: 3.125 mg Clopidogrel Bisulfate (Plavix) 75 mg PEG DAILY [facility] Last Admin: 03/02/17 09:26 Dose: 75 mg Emollient Ointment (Vaseline Oint) 5 gm TOP BID PRN PRN Reason: Dry skin Enoxaparin Sodium (Lovenox) 40 mg SC DAILY [facility] Last Admin: 03/02/17 09:27 Dose: 40 mg Famotidine (Pepcid) 20 mg PEG BID [facility] Last Admin: 03/02/17 18:40 Dose: 20 mg Finasteride (Proscar) 5 mg PEG DAILY [facility] Last Admin: 03/02/17 09:26 Dose: 5 mg Levetiracetam (Keppra) 500 mg PEG BID [facility] Last Admin: 03/02/17 18:40 Dose: 500 mg Tamsulosin HCl (Flomax) 0.4 mg PEG DAILY [facility] Last Admin: 03/02/17 09:27 Dose: 0.4 mg - Labs Labs: 03/02/17 06:03 03/02/17 06:03 PT 10.6 SECONDS (9.7-12.2) 11/24/15 14:10 INR 1.0 11/24/15 14:10 APTT 25 SECONDS (21-34) 11/24/15 14:10 Attending/Attestation - Attestation I have personally seen and examined this patient.: Yes I have fully participated in the care of the patient.: Yes I have reviewed all pertinent clinical information, including history, physical exam and plan: Yes
[2017-01-02] MEDS: Enoxaparin 40 mg Syringe SC SCH (09:50)
[2017-01-02] MEDS: levETIRAcetam 100 mg/ml (5ml) Oral Syringe PEG SCH ×2 (09:51→18:11)
--- NOTE | 2017-01-02 14:52 | CP.PCM.PN ---
<Mariella Wagner - Last Filed: 01/02/17 15:15> Subjective - Date & Time of Evaluation Date of Evaluation: 01/02/17 Time of Evaluation: 08:00 - Subjective Subjective: Medicine Progress Note- Dr. Beth's service: Patient seen and examined at bedside this AM. No acute events overnight. ID on board for proteus mirablis in Urine 12/13/16. CBI in progress draining clear yellow output. Objective - Vital Signs/Intake and Output Vital Signs (last 24 hours): Temp Pulse Resp BP Pulse Ox 98.8 F 77 20 122/81 98 01/02/17 08:00 01/02/17 08:00 01/02/17 08:00 01/02/17 08:00 01/02/17 08:00 Intake and Output: 01/02/17 01/02/17 06:59 18:59 Intake Total 1560 Output Total 1650 Balance -90 - Medications Medications: Current Medications Aspirin (Aspirin Chewable) 81 mg PEG DAILY [facility] Last Admin: 01/02/17 09:51 Dose: 81 mg Bethanechol Chloride (Urecholine) 20 mg PEG TID [facility] Last Admin: 01/02/17 09:51 Dose: 20 mg Carvedilol (Coreg) 3.125 mg PEG BID [facility] Last Admin: 01/02/17 09:51 Dose: 3.125 mg Clopidogrel Bisulfate (Plavix) 75 mg PO DAILY [facility] Last Admin: 01/02/17 09:51 Dose: 75 mg Enoxaparin Sodium (Lovenox) 40 mg SC DAILY [facility] Last Admin: 01/02/17 09:50 Dose: 40 mg Famotidine (Pepcid) 20 mg PEG BID [facility] Last Admin: 01/02/17 09:51 Dose: 20 mg Finasteride (Proscar) 5 mg PEG DAILY [facility] Last Admin: 01/02/17 09:51 Dose: 5 mg Levetiracetam (Keppra) 500 mg PEG BID [facility] Last Admin: 01/02/17 09:51 Dose: 500 mg - Labs Labs: 12/29/16 08:24 01/01/17 08:14 PT 10.6 SECONDS (9.7-12.2) 11/24/15 14:10 INR 1.0 11/24/15 14:10 APTT 25 SECONDS (21-34) 11/24/15 14:10 - Constitutional Appears: No Acute Distress - Head Exam Head Exam: NORMAL INSPECTION, NORMOCEPHALIC - ENT Exam ENT Exam: Mucous Membranes Moist - Respiratory Exam Respiratory Exam: Clear to Ausculation Bilateral, NORMAL BREATHING PATTERN Additional comments: Trach tube in place - Cardiovascular Exam Cardiovascular Exam: REGULAR RHYTHM, +S1, +S2 - GI/Abdominal Exam GI & Abdominal Exam: Soft. absent: Distended, Tenderness - Extremities Exam Extremities Exam: Normal Inspection Additional comments: +air lift boots in place and SCDs - Neurological Exam Neurological Exam: Altered, Awake - Psychiatric Exam Psychiatric exam: Flat Affect - Skin Skin Exam: Normal Color, Warm Assessment and Plan - Assessment and Plan (Free Text) Assessment: 1. UTI Urine culture: + Proteus. Resistant to many antibiotics. ID: Dr Walden following As per Dr. Walden, 3 way baker to treat UTI topically and avoid systemic antibiotics, this is a palliative measure and not invasive. 12/12/2016: UTI is resolved. Completed antibiotics previous Urine Culture 12/03/16 - Positive Kleb pneumo, sensitive to cipro, completed course 2. Anoxic encephalopathy Continue weekly labs on Mondays. Pending snf facility placement Turn Q2 hours- Continue to monitor Isosource feeds through PEG @ reduced rate 60cc/hr per Nutrition recommendations Continue trach suctioning as needed 3. Failure to thrive Continue feeding. Patient is tolerating the feeds 100cc of free water flush q8H Measure weight weekly. Continue to monitor 4. Pressure Ulcers 01/02/17: Right lower buttock ulcer present. Continue wound care as needed, [facility], and [facility]. Reconsult wound care for new right sided gluteal wound. Turn patient Q2H 5. Urinary Retention Patient has a Baker catheter Flomax 0.8mg PEG daily Proscar 5mg PO daily Bethanecol 20 mg PO TID- started after persistent retention monitor I's and O's 6. Respiratory failure trach collar in place - normal resp pattern, thick secretions 7. CAD (coronary artery disease) s/p cardiac stents on 06/13/15 ASA 81mg via PEG daily Coreg 3.125mg PEG BID Plavix 75mg PO Daily 8. Seizures Keppra 500mg PEG BID for seizure prophylaxis 9. Lower extremity edema Lasix via PEG as needed. Administered. 10. Prophylactic measure Pepcid 20 mg PEG BID renewed Lovenox 40mg SC daily SCDs and offloading boots <Nathaniel Beth - Last Filed: 01/03/17 09:49> Objective - Vital Signs/Intake and Output Vital Signs (last 24 hours): Temp Pulse Resp BP Pulse Ox 98.2 F 80 20 116/75 95 01/03/17 08:00 01/03/17 08:00 01/03/17 08:00 01/03/17 08:00 01/03/17 08:00 Intake and Output: 01/03/17 01/03/17 06:59 18:59 Intake Total 1560 Output Total 2000 Balance -440 - Medications Medications: Current Medications Aspirin (Aspirin Chewable) 81 mg PEG DAILY [facility] Last Admin: 01/02/17 09:51 Dose: 81 mg Bethanechol Chloride (Urecholine) 20 mg PEG TID [facility] Last Admin: 01/02/17 18:12 Dose: 20 mg Carvedilol (Coreg) 3.125 mg PEG BID [facility] Last Admin: 01/02/17 18:12 Dose: 3.125 mg Clopidogrel Bisulfate (Plavix) 75 mg PO DAILY [facility] Last Admin: 01/02/17 09:51 Dose: 75 mg Enoxaparin Sodium (Lovenox) 40 mg SC DAILY [facility] Last Admin: 01/02/17 09:50 Dose: 40 mg Famotidine (Pepcid) 20 mg PEG BID [facility] Last Admin: 01/02/17 18:12 Dose: 20 mg Finasteride (Proscar) 5 mg PEG DAILY [facility] Last Admin: 01/02/17 09:51 Dose: 5 mg Levetiracetam (Keppra) 500 mg PEG BID [facility] Last Admin: 01/02/17 18:11 Dose: 500 mg - Labs Labs: 12/29/16 08:24 01/01/17 08:14 PT 10.6 SECONDS (9.7-12.2) 11/24/15 14:10 INR 1.0 11/24/15 14:10 APTT 25 SECONDS (21-34) 11/24/15 14:10 Attending/Attestation - Attestation I have personally seen and examined this patient.: Yes I have fully participated in the care of the patient.: Yes I have reviewed all pertinent clinical information, including history, physical exam and plan: Yes Notes (Text): Patient admitted s/p cardiac arrest, with ensuing severe anoxic encephalopathy; prolonged hospital course due to inability to place patient; Active issues: Hypernatremia - Improving; free water flushes increased from 300 cc q8h to q6h; Sacral decubitus ulcer - 1.5 cm stage I on medial R buttock; new skin breakdown seen yesterday on lower R medial buttock; nursing instructed to place protective ointment; continue frequent re-positioning; Recurrent UTI - Latest urine culture showed multi-drug resistant proteus; not on abx; on continuous bladder irrigation till 01/07 (3 weeks) per ID with neosporin in CBI fluid; Urinary retention - Baker in place; on bethanecol, will increase dose; will give voiding trial after CBI stopped; CAD s/p WILLIE - On ASA, plavix, coreg; continue;
--- NOTE | 2017-01-03 03:30 | CP.PCM.PN ---
<Carlos Dumont - Last Filed: 01/03/17 06:26> Subjective - Date & Time of Evaluation Date of Evaluation: 01/03/17 Time of Evaluation: 00:40 - Subjective Subjective: Patient seen and examined at bedside. Patient resting comfortably, in no acute distress. Nursing reports no acute events overnight. CBI in progress draining clear yellow output. Objective - Vital Signs/Intake and Output Vital Signs (last 24 hours): Temp Pulse Resp BP Pulse Ox 97.6 F 85 20 114/77 99 01/03/17 00:44 01/03/17 00:44 01/03/17 00:44 01/03/17 00:44 01/03/17 00:44 Intake and Output: 01/02/17 01/03/17 18:59 06:59 Intake Total 780 780 Output Total 650 1300 Balance 130 -520 - Medications Medications: Current Medications Aspirin (Aspirin Chewable) 81 mg PEG DAILY [facility] Last Admin: 01/02/17 09:51 Dose: 81 mg Bethanechol Chloride (Urecholine) 20 mg PEG TID [facility] Last Admin: 01/02/17 18:12 Dose: 20 mg Carvedilol (Coreg) 3.125 mg PEG BID [facility] Last Admin: 01/02/17 18:12 Dose: 3.125 mg Clopidogrel Bisulfate (Plavix) 75 mg PO DAILY [facility] Last Admin: 01/02/17 09:51 Dose: 75 mg Enoxaparin Sodium (Lovenox) 40 mg SC DAILY [facility] Last Admin: 01/02/17 09:50 Dose: 40 mg Famotidine (Pepcid) 20 mg PEG BID [facility] Last Admin: 01/02/17 18:12 Dose: 20 mg Finasteride (Proscar) 5 mg PEG DAILY [facility] Last Admin: 01/02/17 09:51 Dose: 5 mg Levetiracetam (Keppra) 500 mg PEG BID [facility] Last Admin: 01/02/17 18:11 Dose: 500 mg - Labs Labs: 12/29/16 08:24 01/01/17 08:14 PT 10.6 SECONDS (9.7-12.2) 11/24/15 14:10 INR 1.0 11/24/15 14:10 APTT 25 SECONDS (21-34) 11/24/15 14:10 - Constitutional Appears: Chronically Ill - Head Exam Head Exam: ATRAUMATIC, NORMOCEPHALIC - ENT Exam ENT Exam: Mucous Membranes Moist - Neck Exam Neck Exam: absent: Lymphadenopathy - Respiratory Exam Respiratory Exam: Clear to Ausculation Bilateral, NORMAL BREATHING PATTERN. absent: Wheezes - Cardiovascular Exam Cardiovascular Exam: REGULAR RHYTHM, RRR, +S1, +S2 - GI/Abdominal Exam GI & Abdominal Exam: Soft, Normal Bowel Sounds - Neurological Exam Neurological Exam: Altered - Skin Skin Exam: Dry, Intact, Pallor, Warm Assessment and Plan - Assessment and Plan (Free Text) Plan: UTI Triple lumen Yoo in place for irrigation, added neosporin to CBI 12/30 Urine Culture 12/03/16 - Positive Kleb pneumo, sensitive to cipro - resolved. Off antibiotics now Sacral Ulcers Stage I ulcer present, about 2 cm in length at upper sacral crease; area frequently alternates between Stage I and healed ulcer. Continue frequent turning, protective ointment and skin checks. Urinary Retention Flomax 0.8mg PEG daily Proscar 5mg PO daily Bethanecol 20 mg PO TID- started after persistent retention (before current UTI ) and found to be effective. monitor I's and O's Respiratory failure trach collar in place - normal resp pattern, thick secretions CAD (coronary artery disease) s/p cardiac stents on 06/13/15 ASA 81mg via PEG daily Coreg 3.125mg PEG BID Seizures Keppra 500mg PEG BID for seizure prophylaxis Lower extremity edema Lasix via PEG as needed. 2 no edema 2/8 mild edema Possible Hypernatremia increased free water flushes from 300q8 to 300q6 labs 01/01 Na of 144, will keep 300q6 free water flushes Prophylactic measure Pepcid 20 mg PEG BID Lovenox 40mg SC daily Sennosides 8.6mg PEG daily SCDs and offloading boots Continue to monitor medication administrations and clinical presentation <Nathaniel Beth - Last Filed: 03/03/17 08:11> Objective - Vital Signs/Intake and Output Vital Signs (last 24 hours): Temp Pulse Resp BP Pulse Ox 98.7 F 80 20 115/79 97 03/03/17 07:40 03/03/17 07:59 03/03/17 07:40 03/03/17 07:40 03/03/17 07:40 Intake and Output: 03/03/17 03/03/17 06:59 18:59 Intake Total 1760 Output Total 900 Balance 860 - Medications Medications: Current Medications Aspirin (Aspirin Chewable) 81 mg PEG DAILY [facility] Last Admin: 03/02/17 09:26 Dose: 81 mg Bethanechol Chloride (Urecholine) 50 mg PEG TID [facility] Last Admin: 03/02/17 18:41 Dose: 50 mg Bisacodyl (Dulcolax) 5 mg PO Q72H PRN PRN Reason: Constipation Carvedilol (Coreg) 3.125 mg PEG BID [facility] Last Admin: 03/02/17 18:40 Dose: 3.125 mg Clopidogrel Bisulfate (Plavix) 75 mg PEG DAILY [facility] Last Admin: 03/02/17 09:26 Dose: 75 mg Emollient Ointment (Vaseline Oint) 5 gm TOP BID PRN PRN Reason: Dry skin Enoxaparin Sodium (Lovenox) 40 mg SC DAILY [facility] Last Admin: 03/02/17 09:27 Dose: 40 mg Famotidine (Pepcid) 20 mg PEG BID [facility] Last Admin: 03/02/17 18:40 Dose: 20 mg Finasteride (Proscar) 5 mg PEG DAILY [facility] Last Admin: 03/02/17 09:26 Dose: 5 mg Levetiracetam (Keppra) 500 mg PEG BID [facility] Last Admin: 03/02/17 18:40 Dose: 500 mg Tamsulosin HCl (Flomax) 0.4 mg PEG DAILY [facility] Last Admin: 03/02/17 09:27 Dose: 0.4 mg - Labs Labs: 03/02/17 06:03 03/02/17 06:03 PT 10.6 SECONDS (9.7-12.2) 11/24/15 14:10 INR 1.0 11/24/15 14:10 APTT 25 SECONDS (21-34) 11/24/15 14:10 Attending/Attestation - Attestation I have personally seen and examined this patient.: Yes I have fully participated in the care of the patient.: Yes I have reviewed all pertinent clinical information, including history, physical exam and plan: Yes
[2017-01-03] MEDS: Enoxaparin 40 mg Syringe SC SCH (11:00)
[2017-01-03] MEDS: levETIRAcetam 100 mg/ml (5ml) Oral Syringe PEG SCH ×2 (11:52→18:21)
--- NOTE | 2017-01-04 06:27 | CP.PCM.PN ---
<Carlos Dumotn - Last Filed: 01/04/17 06:24> Subjective - Date & Time of Evaluation Date of Evaluation: 01/04/17 Time of Evaluation: 06:20 - Subjective Subjective: Patient seen and examined at bedside. Patient resting comfortably, in no acute distress. Nursing reports no acute events overnight. CBI in progress draining clear yellow output. PEG tube site looked nonerythematous and dressing was clean. Objective - Vital Signs/Intake and Output Vital Signs (last 24 hours): Temp Pulse Resp BP Pulse Ox 97.3 F L 84 20 100/61 96 01/03/17 23:39 01/03/17 23:39 01/03/17 23:39 01/03/17 23:39 01/03/17 23:39 Intake and Output: 01/03/17 01/04/17 18:59 06:59 Intake Total 780 1080 Output Total 700 Balance 80 1080 - Medications Medications: Current Medications Aspirin (Aspirin Chewable) 81 mg PEG DAILY [facility] Last Admin: 01/03/17 11:00 Dose: 81 mg Bethanechol Chloride (Urecholine) 30 mg PEG TID [facility] Last Admin: 01/03/17 18:21 Dose: 30 mg Carvedilol (Coreg) 3.125 mg PEG BID [facility] Last Admin: 01/03/17 18:21 Dose: 3.125 mg Clopidogrel Bisulfate (Plavix) 75 mg PO DAILY [facility] Last Admin: 01/03/17 11:00 Dose: 75 mg Enoxaparin Sodium (Lovenox) 40 mg SC DAILY [facility] Last Admin: 01/03/17 11:00 Dose: 40 mg Famotidine (Pepcid) 20 mg PEG BID [facility] Last Admin: 01/03/17 18:21 Dose: 20 mg Finasteride (Proscar) 5 mg PEG DAILY [facility] Last Admin: 01/03/17 11:53 Dose: 5 mg Levetiracetam (Keppra) 500 mg PEG BID [facility] Last Admin: 01/03/17 18:21 Dose: 500 mg - Labs Labs: 12/29/16 08:24 01/01/17 08:14 PT 10.6 SECONDS (9.7-12.2) 11/24/15 14:10 INR 1.0 11/24/15 14:10 APTT 25 SECONDS (21-34) 11/24/15 14:10 - Constitutional Appears: No Acute Distress - Head Exam Head Exam: ATRAUMATIC, NORMOCEPHALIC - ENT Exam ENT Exam: Mucous Membranes Moist - Respiratory Exam Respiratory Exam: Clear to Ausculation Bilateral, NORMAL BREATHING PATTERN. absent: Wheezes - Cardiovascular Exam Cardiovascular Exam: REGULAR RHYTHM, RRR, +S1, +S2 - GI/Abdominal Exam GI & Abdominal Exam: Soft, Normal Bowel Sounds - Neurological Exam Neurological Exam: Altered - Skin Skin Exam: Dry, Intact, Pallor, Warm Assessment and Plan - Assessment and Plan (Free Text) Plan: UTI Triple lumen Yoo in place for irrigation, added neosporin to CBI 12/30 Urine Culture 12/03/16 - Positive Kleb pneumo, sensitive to cipro - resolved. Off antibiotics now Sacral Ulcers Stage I ulcer present, about 2 cm in length at upper sacral crease; area frequently alternates between Stage I and healed ulcer. Continue frequent turning, protective ointment and skin checks. Urinary Retention Flomax 0.8mg PEG daily Proscar 5mg PO daily Bethanecol 20 mg PO TID- started after persistent retention (before current UTI ) and found to be effective. monitor I's and O's Respiratory failure trach collar in place - normal resp pattern, thick secretions CAD (coronary artery disease) s/p cardiac stents on 06/13/15 ASA 81mg via PEG daily Coreg 3.125mg PEG BID Seizures Keppra 500mg PEG BID for seizure prophylaxis Lower extremity edema Lasix via PEG as needed. 12/29 no edema 2/8 mild edema Possible Hypernatremia increased free water flushes from 300q8 to 300q6 labs 01/01 Na of 144, will keep 300q6 free water flushes Prophylactic measure Pepcid 20 mg PEG BID Lovenox 40mg SC daily Sennosides 8.6mg PEG daily SCDs and offloading boots Continue to monitor medication administrations and clinical presentation <Nathaniel Beth - Last Filed: 03/03/17 08:17> Objective - Vital Signs/Intake and Output Vital Signs (last 24 hours): Temp Pulse Resp BP Pulse Ox 98.7 F 80 20 115/79 97 03/03/17 07:40 03/03/17 07:59 03/03/17 07:40 03/03/17 07:40 03/03/17 07:40 Intake and Output: 03/03/17 03/03/17 06:59 18:59 Intake Total 1760 Output Total 900 Balance 860 - Medications Medications: Current Medications Aspirin (Aspirin Chewable) 81 mg PEG DAILY [facility] Last Admin: 03/02/17 09:26 Dose: 81 mg Bethanechol Chloride (Urecholine) 50 mg PEG TID [facility] Last Admin: 03/02/17 18:41 Dose: 50 mg Bisacodyl (Dulcolax) 5 mg PO Q72H PRN PRN Reason: Constipation Carvedilol (Coreg) 3.125 mg PEG BID [facility] Last Admin: 03/02/17 18:40 Dose: 3.125 mg Clopidogrel Bisulfate (Plavix) 75 mg PEG DAILY [facility] Last Admin: 03/02/17 09:26 Dose: 75 mg Emollient Ointment (Vaseline Oint) 5 gm TOP BID PRN PRN Reason: Dry skin Enoxaparin Sodium (Lovenox) 40 mg SC DAILY [facility] Last Admin: 03/02/17 09:27 Dose: 40 mg Famotidine (Pepcid) 20 mg PEG BID [facility] Last Admin: 03/02/17 18:40 Dose: 20 mg Finasteride (Proscar) 5 mg PEG DAILY [facility] Last Admin: 03/02/17 09:26 Dose: 5 mg Levetiracetam (Keppra) 500 mg PEG BID [facility] Last Admin: 03/02/17 18:40 Dose: 500 mg Tamsulosin HCl (Flomax) 0.4 mg PEG DAILY [facility] Last Admin: 03/02/17 09:27 Dose: 0.4 mg - Labs Labs: 03/02/17 06:03 03/02/17 06:03 PT 10.6 SECONDS (9.7-12.2) 11/24/15 14:10 INR 1.0 11/24/15 14:10 APTT 25 SECONDS (21-34) 11/24/15 14:10 Attending/Attestation - Attestation I have personally seen and examined this patient.: Yes I have fully participated in the care of the patient.: Yes I have reviewed all pertinent clinical information, including history, physical exam and plan: Yes
[2017-01-04] MEDS: Enoxaparin 40 mg Syringe SC SCH (10:25)
[2017-01-04] MEDS: levETIRAcetam 100 mg/ml (5ml) Oral Syringe PEG SCH ×2 (10:27→18:43)
--- NOTE | 2017-01-04 18:38 | CP.PCM.PN ---
Subjective - Date & Time of Evaluation Date of Evaluation: 01/04/17 Time of Evaluation: 08:00 - Subjective Subjective: remains afeb Objective - Vital Signs/Intake and Output Vital Signs (last 24 hours): Temp Pulse Resp BP Pulse Ox 97.5 F L 77 20 109/72 99 01/04/17 16:00 01/04/17 16:00 01/04/17 16:00 01/04/17 16:00 01/04/17 16:00 Intake and Output: 01/04/17 01/04/17 06:59 18:59 Intake Total 1860 780 Output Total 4100 Balance 1860 -3320 - Medications Medications: Current Medications Aspirin (Aspirin Chewable) 81 mg PEG DAILY [facility] Last Admin: 01/04/17 10:25 Dose: 81 mg Bethanechol Chloride (Urecholine) 30 mg PEG TID [facility] Last Admin: 01/04/17 13:41 Dose: 30 mg Carvedilol (Coreg) 3.125 mg PEG BID [facility] Last Admin: 01/04/17 10:26 Dose: 3.125 mg Clopidogrel Bisulfate (Plavix) 75 mg PO DAILY [facility] Last Admin: 01/04/17 10:25 Dose: 75 mg Enoxaparin Sodium (Lovenox) 40 mg SC DAILY [facility] Last Admin: 01/04/17 10:25 Dose: 40 mg Famotidine (Pepcid) 20 mg PEG BID [facility] Last Admin: 01/04/17 10:25 Dose: 20 mg Finasteride (Proscar) 5 mg PEG DAILY [facility] Last Admin: 01/04/17 10:27 Dose: 5 mg Levetiracetam (Keppra) 500 mg PEG BID [facility] Last Admin: 01/04/17 10:27 Dose: 500 mg - Labs Labs: 12/29/16 08:24 01/01/17 08:14 PT 10.6 SECONDS (9.7-12.2) 11/24/15 14:10 INR 1.0 11/24/15 14:10 APTT 25 SECONDS (21-34) 11/24/15 14:10 - Constitutional Appears: Confused, Cachectic, Chronically Ill - Head Exam Head Exam: NORMOCEPHALIC - Eye Exam Eye Exam: absent: Scleral icterus - ENT Exam ENT Exam: Mucous Membranes Dry - Neck Exam Neck Exam: absent: Lymphadenopathy - Respiratory Exam Respiratory Exam: Decreased Breath Sounds, Rhonchi - Cardiovascular Exam Cardiovascular Exam: REGULAR RHYTHM - GI/Abdominal Exam GI & Abdominal Exam: Distended, Soft - Rectal Exam Rectal Exam: Deferred - Extremities Exam Extremities Exam: absent: Pedal Edema - Back Exam Back Exam: absent: CVA tenderness (L), CVA tenderness (R) Assessment and Plan - Assessment and Plan (Free Text) Plan: supportive care
[2017-01-05 07:36] LABS: BASO # 0.1 K/uL (0.0-0.2); BASO % 0.7 % (0.0-2.0); EOS # 0.3 K/uL (0.0-0.7); EOS % 3.6 % (0.0-4.0); HEMOGLOBIN 12.3 g/dL (12.0-18.0); LYMPH % 22.6 % (20.0-40.0); MEAN CELL VOLUME 86.9 fL (80.0-94.0); MEAN CORPUSCULAR HEMOGLOBIN 28.3 pg (27.0-31.0); MEAN CORPUSCULAR HGB CONC 32.5 g/dL (33.0-37.0); MEAN PLATELET VOLUME 8.7 fL (7.2-11.7); MONO # 0.9 K/uL (0.0-0.8); MONO % 10.5 % (0.0-10.0); NEUT # 5.5 K/uL (1.8-7.0); NEUT % 62.6 % (50.0-75.0); RBC 4.36 Mil/uL (4.40-5.90); RED CELL DISTRIBUTION WIDTH 15.5 % (11.5-14.5); WHITE BLOOD COUNT 8.8 K/uL (4.8-10.8)
[2017-01-05 07:45] LABS: ALBUMIN 3.8 g/dL (3.5-5.0)
[2017-01-05 07:48] LABS: ALT/SGPT 39 U/L (21-72); AST/SGOT 22 U/L (17-59); BLOOD UREA NITROGEN 21 mg/dL (9-20); GFR NON-AFRICAN AMERICAN > 60
[2017-01-05 07:49] LABS: CALCIUM 8.8 mg/dl (8.6-10.4)
[2017-01-05] MEDS: levETIRAcetam 100 mg/ml (5ml) Oral Syringe PEG SCH ×2 (11:17→18:50)
[2017-01-05] MEDS: Enoxaparin 40 mg Syringe SC SCH (11:18)
--- NOTE | 2017-01-05 12:58 | CP.PCM.PN ---
<Judith Forrester - Last Filed: 01/05/17 13:07> Subjective - Date & Time of Evaluation Date of Evaluation: 01/05/17 Time of Evaluation: 09:30 - Subjective Subjective: PGY1 on Dr. Ying's Service: Patient seen and examined. Patient with eyes open, looking around room. Patient appears to be resting comfortably, no acute distress. Objective - Vital Signs/Intake and Output Vital Signs (last 24 hours): Temp Pulse Resp BP Pulse Ox 97.4 F L 72 20 120/85 100 01/05/17 08:12 01/05/17 08:12 01/05/17 08:12 01/05/17 11:25 01/05/17 08:12 Intake and Output: 01/05/17 01/05/17 06:59 18:59 Intake Total 1560 Output Total 2175 Balance -615 - Medications Medications: Current Medications Aspirin (Aspirin Chewable) 81 mg PEG DAILY [facility] Last Admin: 01/05/17 11:15 Dose: 81 mg Bethanechol Chloride (Urecholine) 30 mg PEG TID [facility] Last Admin: 01/05/17 11:16 Dose: 30 mg Carvedilol (Coreg) 3.125 mg PEG BID [facility] Last Admin: 01/05/17 11:15 Dose: 3.125 mg Clopidogrel Bisulfate (Plavix) 75 mg PO DAILY [facility] Last Admin: 01/05/17 11:19 Dose: 75 mg Enoxaparin Sodium (Lovenox) 40 mg SC DAILY [facility] Last Admin: 01/05/17 11:18 Dose: 40 mg Famotidine (Pepcid) 20 mg PEG BID [facility] Last Admin: 01/05/17 11:15 Dose: 20 mg Finasteride (Proscar) 5 mg PEG DAILY [facility] Last Admin: 01/05/17 11:16 Dose: 5 mg Levetiracetam (Keppra) 500 mg PEG BID [facility] Last Admin: 01/05/17 11:17 Dose: 500 mg Tamsulosin HCl (Flomax) 0.4 mg PO DAILY [facility] Last Admin: 01/05/17 11:15 Dose: 0.4 mg - Labs Labs: 01/05/17 07:15 01/05/17 07:15 PT 10.6 SECONDS (9.7-12.2) 11/24/15 14:10 INR 1.0 11/24/15 14:10 APTT 25 SECONDS (21-34) 11/24/15 14:10 - Constitutional Appears: No Acute Distress - Head Exam Head Exam: ATRAUMATIC - Eye Exam Eye Exam: EOMI - ENT Exam ENT Exam: Mucous Membranes Moist - Neck Exam Additional comments: trach collar in place with thick white/ yellow secretions - Respiratory Exam Respiratory Exam: Clear to Ausculation Bilateral - Cardiovascular Exam Cardiovascular Exam: +S1, +S2 - GI/Abdominal Exam GI & Abdominal Exam: Soft, Normal Bowel Sounds Additional comments: PEG site dressed, clean, dry - Extremities Exam Additional comments: mild edema bilateral lower extremities, SCDs and heel protectors in place - Neurological Exam Neurological Exam: Awake - Skin Skin Exam: Dry, Warm Assessment and Plan - Assessment and Plan (Free Text) Assessment: UTI Triple lumen Yoo in place for irrigation, added neosporin to CBI 12/30 Urine Culture 12/03/16 - Positive Kleb pneumo, sensitive to cipro - resolved. Off antibiotics now Sacral Ulcers Stage I ulcer present, about 2 cm in length at upper sacral crease; area frequently alternates between Stage I and healed ulcer. Continue frequent turning, protective ointment and skin checks. Urinary Retention Flomax 0.4mg PEG daily Proscar 5mg PEG daily Bethanecol 30mg PEG TID- started after persistent retention (before current UTI ) and found to be effective. monitor I's and O's Respiratory failure trach collar in place - normal resp pattern, thick secretions CAD (coronary artery disease) s/p cardiac stents on 06/13/15 ASA 81mg via PEG daily Coreg 3.125mg PEG BID plavix 75mg PO daily Seizures Keppra 500mg PEG BID for seizure prophylaxis Lower extremity edema Lasix via PEG as needed. 01/05 mild edema- give 40mg via PEG Hypernatremia- resolved increased free water flushes from 300q8 to 300q6 labs 01/05 Na of 145, will keep 300q6 free water flushes Prophylactic measure Pepcid 20 mg PEG BID Lovenox 40mg SC daily SCDs and offloading boots continue to turn and reposition q2h Continue to monitor medication administrations and clinical presentation <Donnell Ying - Last Filed: 01/05/17 17:24> Objective - Vital Signs/Intake and Output Vital Signs (last 24 hours): Temp Pulse Resp BP Pulse Ox 98.3 F 82 20 92/61 L 99 01/05/17 16:00 01/05/17 16:00 01/05/17 16:00 01/05/17 16:00 01/05/17 16:00 Intake and Output: 01/05/17 01/05/17 06:59 18:59 Intake Total 1560 780 Output Total 2175 8780 Balance -615 -1670 - Medications Medications: Current Medications Aspirin (Aspirin Chewable) 81 mg PEG DAILY [facility] Last Admin: 01/05/17 11:15 Dose: 81 mg Bethanechol Chloride (Urecholine) 30 mg PEG TID [facility] Last Admin: 01/05/17 11:16 Dose: 30 mg Carvedilol (Coreg) 3.125 mg PEG BID [facility] Last Admin: 01/05/17 11:15 Dose: 3.125 mg Clopidogrel Bisulfate (Plavix) 75 mg PO DAILY [facility] Last Admin: 01/05/17 11:19 Dose: 75 mg Enoxaparin Sodium (Lovenox) 40 mg SC DAILY [facility] Last Admin: 01/05/17 11:18 Dose: 40 mg Famotidine (Pepcid) 20 mg PEG BID [facility] Last Admin: 01/05/17 11:15 Dose: 20 mg Finasteride (Proscar) 5 mg PEG DAILY [facility] Last Admin: 01/05/17 11:16 Dose: 5 mg Levetiracetam (Keppra) 500 mg PEG BID [facility] Last Admin: 01/05/17 11:17 Dose: 500 mg Tamsulosin HCl (Flomax) 0.4 mg PO DAILY [facility] Last Admin: 01/05/17 11:15 Dose: 0.4 mg - Labs Labs: 01/05/17 07:15 01/05/17 07:15 PT 10.6 SECONDS (9.7-12.2) 11/24/15 14:10 INR 1.0 11/24/15 14:10 APTT 25 SECONDS (21-34) 11/24/15 14:10 Attending/Attestation - Attestation I have personally seen and examined this patient.: Yes I have fully participated in the care of the patient.: Yes I have reviewed all pertinent clinical information, including history, physical exam and plan: Yes Notes (Text): 01/05/17 17:23 Patient was seen and examined at bedside Continue current management CBI is in place Discussed the plan of care with the resident
--- NOTE | 2017-01-06 10:32 | RAD ---
HISTORY: NG tube placement COMPARISON: 10/07/2016 FINDINGS: LUNGS: NG tube appears kinked in the stomach with the distal tip extending superiorly into the mid esophagus. Repositioning recommended. Mild venous congestion. Minimal left basilar atelectasis. PLEURA: No significant pleural effusion identified, no pneumothorax apparent. CARDIOVASCULAR: Cardiomegaly. OSSEOUS STRUCTURES: No significant abnormalities. VISUALIZED UPPER ABDOMEN: Normal. OTHER FINDINGS: None. IMPRESSION: NG tube appears kinked in the stomach with the distal tip extending superiorly into the mid esophagus. Repositioning recommended. Mild venous congestion. Minimal left basilar atelectasis. These findings were discussed with Dr. Ying at 10:26 a.m. on 01/06/2017.
[2017-01-06] MEDS: levETIRAcetam 100 mg/ml (5ml) Oral Syringe PEG SCH ×2 (11:20→18:26)
[2017-01-06] MEDS: Enoxaparin 40 mg Syringe SC SCH (11:23)
--- NOTE | 2017-01-06 14:16 | CP.PCM.PN ---
<Donnell Ying - Last Filed: 01/06/17 16:27> Objective - Vital Signs/Intake and Output Vital Signs (last 24 hours): Temp Pulse Resp BP Pulse Ox 98.4 F 64 16 129/76 100 01/06/17 07:00 01/06/17 07:00 01/06/17 07:00 01/06/17 07:00 01/06/17 07:00 Intake and Output: 01/06/17 01/06/17 06:59 18:59 Intake Total 1560 Output Total 2450 Balance -890 - Medications Medications: Current Medications Aspirin (Aspirin Chewable) 81 mg PEG DAILY [facility] Last Admin: 01/06/17 11:19 Dose: Not Given Bethanechol Chloride (Urecholine) 30 mg PEG TID [facility] Last Admin: 01/06/17 11:21 Dose: Not Given Carvedilol (Coreg) 3.125 mg PEG BID [facility] Last Admin: 01/06/17 11:19 Dose: Not Given Clopidogrel Bisulfate (Plavix) 75 mg PO DAILY [facility] Last Admin: 01/06/17 11:21 Dose: Not Given Enoxaparin Sodium (Lovenox) 40 mg SC DAILY [facility] Last Admin: 01/06/17 11:23 Dose: 40 mg Famotidine (Pepcid) 20 mg PEG BID [facility] Last Admin: 01/06/17 11:20 Dose: Not Given Finasteride (Proscar) 5 mg PEG DAILY [facility] Last Admin: 01/06/17 11:21 Dose: Not Given Levetiracetam (Keppra) 500 mg PEG BID [facility] Last Admin: 01/06/17 11:20 Dose: Not Given Tamsulosin HCl (Flomax) 0.4 mg PO DAILY [facility] Last Admin: 01/06/17 11:20 Dose: Not Given - Labs Labs: 01/05/17 07:15 01/05/17 07:15 PT 10.6 SECONDS (9.7-12.2) 11/24/15 14:10 INR 1.0 11/24/15 14:10 APTT 25 SECONDS (21-34) 11/24/15 14:10 Attending/Attestation - Attestation I have personally seen and examined this patient.: Yes I have fully participated in the care of the patient.: Yes I have reviewed all pertinent clinical information, including history, physical exam and plan: Yes Notes (Text): 01/06/17 16:28 Patient was seen and examined at bedside with the resident Patient's PEG tube fell out last night Stoma present but unable to insert any Baker's catheter ordered to bedside PEG tube by surgery Interventional radiology to place the PEG tube as per surgery We will restart patient's medication once the PEG tube is in place <Judith Forrester - Last Filed: 01/06/17 16:56> Subjective - Date & Time of Evaluation Date of Evaluation: 01/06/17 Time of Evaluation: 08:05 - Subjective Subjective: PGY1 on Dr Ying's service: Patient seen and examined. Patient's PEG tube fell out early this morning. Attempts were made to place baker catheter in PEG site but were unsuccessful. Objective - Vital Signs/Intake and Output Vital Signs (last 24 hours): Temp Pulse Resp BP Pulse Ox 98.4 F 64 16 129/76 100 01/06/17 07:00 01/06/17 07:00 01/06/17 07:00 01/06/17 07:00 01/06/17 07:00 Intake and Output: 01/06/17 01/06/17 06:59 18:59 Intake Total 1560 Output Total 2450 Balance -890 - Medications Medications: Current Medications Aspirin (Aspirin Chewable) 81 mg PEG DAILY [facility] Last Admin: 01/06/17 11:19 Dose: Not Given Bethanechol Chloride (Urecholine) 30 mg PEG TID [facility] Last Admin: 01/06/17 11:21 Dose: Not Given Carvedilol (Coreg) 3.125 mg PEG BID [facility] Last Admin: 01/06/17 11:19 Dose: Not Given Clopidogrel Bisulfate (Plavix) 75 mg PO DAILY [facility] Last Admin: 01/06/17 11:21 Dose: Not Given Enoxaparin Sodium (Lovenox) 40 mg SC DAILY [facility] Last Admin: 01/06/17 11:23 Dose: 40 mg Famotidine (Pepcid) 20 mg PEG BID [facility] Last Admin: 01/06/17 11:20 Dose: Not Given Finasteride (Proscar) 5 mg PEG DAILY [facility] Last Admin: 01/06/17 11:21 Dose: Not Given Levetiracetam (Keppra) 500 mg PEG BID [facility] Last Admin: 01/06/17 11:20 Dose: Not Given Tamsulosin HCl (Flomax) 0.4 mg PO DAILY [facility] Last Admin: 01/06/17 11:20 Dose: Not Given - Labs Labs: 01/05/17 07:15 01/05/17 07:15 PT 10.6 SECONDS (9.7-12.2) 11/24/15 14:10 INR 1.0 11/24/15 14:10 APTT 25 SECONDS (21-34) 11/24/15 14:10 - Constitutional Appears: No Acute Distress - Head Exam Head Exam: ATRAUMATIC - Eye Exam Eye Exam: EOMI - ENT Exam ENT Exam: Mucous Membranes Moist - Neck Exam Additional comments: trach collar in place, thick yellow tinged secretions present - Respiratory Exam Respiratory Exam: Clear to Ausculation Bilateral - Cardiovascular Exam Cardiovascular Exam: +S1, +S2 - GI/Abdominal Exam GI & Abdominal Exam: Soft Additional comments: PEG site closed, dressed cleanly - Extremities Exam Additional comments: SCDs and heel protectors in place, no edema present - Neurological Exam Neurological Exam: Awake - Skin Skin Exam: Dry, Warm Assessment and Plan - Assessment and Plan (Free Text) Assessment: PEG tube dysfunction PEG tube fell out morning of 01/06/17 NG attempted- first placement appeared coiled into esophagus IR placed new PEG this afternoon UTI Triple lumen Baker in place for irrigation, added neosporin to CBI 12/30, to be continued until 01/07/17 Urine Culture 12/03/16 - Positive Kleb pneumo, sensitive to cipro - resolved. Off antibiotics now Sacral Ulcers Stage I ulcer present, about 2 cm in length at upper sacral crease; area frequently alternates between Stage I and healed ulcer. Continue frequent turning, protective ointment and skin checks. Urinary Retention Flomax 0.4mg PEG daily Proscar 5mg PEG daily Bethanecol 30mg PEG TID- started after persistent retention (before current UTI ) and found to be effective. monitor I's and O's Respiratory failure trach collar in place - normal resp pattern, thick secretions CAD (coronary artery disease) s/p cardiac stents on 06/13/15 ASA 81mg via PEG daily Coreg 3.125mg PEG BID plavix 75mg PO daily Seizures Keppra 500mg PEG BID for seizure prophylaxis Lower extremity edema Lasix via PEG as needed. 01/05 mild edema- give 40mg via PEG Hypernatremia- resolved increased free water flushes from 300q8 to 300q6 labs 01/05 Na of 145, will keep 300q6 free water flushes Prophylactic measure Pepcid 20 mg PEG BID Lovenox 40mg SC daily SCDs and offloading boots continue to turn and reposition q2h Continue to monitor medication administrations and clinical presentation weekly labs
--- NOTE | 2017-01-06 16:20 | PCM.SURG1 ---
Surgeon's Initial Post Op Note - Surgeon's Notes Surgeon: Barrington Schroeder MD Fire Investigator: NONE Type of Anesthesia: Local Pre-Operative Diagnosis: Anoxic brain injury, PEG tube pulled out. Operative Findings: PEG tube pulled out. Stoma patent. Post-Operative Diagnosis: Anoxic brain injury Operation Performed: Replacement of 18 Fr G tube. Specimen/Specimens Removed: NONE Estimated Blood Loss: EBL {In ML}: 1 Blood Products Given: N/A Drains Used: No Drains Post-Op Condition: Poor Date of Surgery/Procedure: 01/06/17 Time of Surgery/Procedure: 16:15
--- NOTE | 2017-01-06 17:48 | RAD ---
HISTORY: NG tube placement COMPARISON: 01/06/2017 at 9:47 a.m. FINDINGS: There is stable position of the tracheostomy tube. The nasogastric tube is coiled in the hypopharynx. LUNGS: The lungs are clear. There is bibasilar discoid atelectasis. PLEURA: No significant pleural effusion identified, no pneumothorax apparent. CARDIOVASCULAR: There is mild cardiomegaly. OSSEOUS STRUCTURES: No significant abnormalities. VISUALIZED UPPER ABDOMEN: Normal. OTHER FINDINGS: None. IMPRESSION: 1. The nasogastric tube is coiled in the hypopharynx. 2. Mild cardiomegaly. Bibasilar atelectasis.
--- NOTE | 2017-01-06 19:45 | CP.PCM.CON ---
History of Present Illness - History of Present Illness History of Present Illness: Surgery consult note for Dr. 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 Early this AM nurses were cleaning patient and his gastrostomy tube was dislodged completely. Dr. Ying and the medicine resident attempted to reinsert a gastrostomy tube shortly after, but were unable to do so. Patient is stable, with no other acute distress or complications. Review of Systems - Review of Systems Systems not reviewed;Unavailable: Altered Mental Status Past Patient History - Tetanus Immunizations Tetanus Immunization: Unknown - Past Medical History & Family History Past Medical History?: Yes - Past Social History Smoking Status: Never Smoked Alcohol: None Drugs: Denies - CARDIAC Hx Cardiac Disorders: Yes (unknown condition diagnosed in [place] 15 years ago) - MUSCULOSKELETAL/RHEUMATOLOGICAL Hx Falls: Yes - PSYCHIATRIC Hx Substance Use: No - ANESTHESIA Hx Anesthesia: No Hx Anesthesia Reactions: No Hx Malignant Hyperthermia: No Has any member of the family had a problem w/ anesthesia?: No Meds Allergies/Adverse Reactions: Allergies Allergy/AdvReac Type Severity Reaction Status Date / Time No Known Allergies Allergy Unverified 06/13/15 20:57 - Medications Medications: Current Medications Aspirin (Aspirin Chewable) 81 mg PEG DAILY [facility] Last Admin: 01/06/17 11:19 Dose: Not Given Bethanechol Chloride (Urecholine) 30 mg PEG TID [facility] Last Admin: 01/06/17 18:27 Dose: 30 mg Carvedilol (Coreg) 3.125 mg PEG BID [facility] Last Admin: 01/06/17 11:19 Dose: Not Given Clopidogrel Bisulfate (Plavix) 75 mg PO DAILY [facility] Last Admin: 01/06/17 11:21 Dose: Not Given Enoxaparin Sodium (Lovenox) 40 mg SC DAILY [facility] Last Admin: 01/06/17 11:23 Dose: 40 mg Famotidine (Pepcid) 20 mg PEG BID [facility] Last Admin: 01/06/17 18:26 Dose: 20 mg Finasteride (Proscar) 5 mg PEG DAILY [facility] Last Admin: 01/06/17 11:21 Dose: Not Given Levetiracetam (Keppra) 500 mg PEG BID [facility] Last Admin: 01/06/17 18:26 Dose: 500 mg Tamsulosin HCl (Flomax) 0.4 mg PO DAILY [facility] Last Admin: 01/06/17 11:20 Dose: Not Given Physical Exam - Constitutional Appears: Non-toxic, No Acute Distress - Head Exam Head Exam: ATRAUMATIC, NORMOCEPHALIC - Eye Exam Eye Exam: Normal appearance - ENT Exam ENT Exam: Mucous Membranes Moist - Neck Exam Additional comments: tracheostomy in place with no sign of bleeding or inflammation - Respiratory Exam Respiratory Exam: NORMAL BREATHING PATTERN. absent: Accessory Muscle Use, Respiratory Distress - GI/Abdominal Exam GI & Abdominal Exam: Soft. absent: Distended, Tenderness Additional comments: Former gastrostomy site approximately 1cm in diameter with minimal sero- sanguinous drainage, patency indeterminable - Neurological Exam Neurological exam: Altered - Psychiatric Exam Psychiatric exam: Flat Affect - Skin Skin Exam: Dry, Normal Color, Warm Results - Vital Signs Recent Vital Signs: Last Vital Signs Temp 97.4 F L 01/06/17 14:00 Pulse 77 01/06/17 14:00 Resp 20 01/06/17 14:00 BP 115/80 01/06/17 14:00 Pulse Ox 99 01/06/17 14:00 - Labs Result Diagrams: 01/05/17 07:15 01/05/17 07:15 Labs: Laboratory Results - last 24 hr 01/05/17 01/06/17 01/06/17 21:18 07:12 11:55 POC Glucose (mg/dL) 156 H 83 109 01/06/17 16:40 POC Glucose (mg/dL) 124 H Assessment & Plan - Assessment and Plan (Free Text) Assessment: 66M with 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 Schroeder, IR for image guided gastrostomy tube re-insertion Thank you for this consult Patient discussed and examine with Dr. Rocio Walton, PGY1
[2017-01-07] MEDS: levETIRAcetam 100 mg/ml (5ml) Oral Syringe PEG SCH ×2 (10:51→17:34)
[2017-01-07] MEDS: Enoxaparin 40 mg Syringe SC SCH (10:51)
--- NOTE | 2017-01-07 18:15 | CP.PCM.PN ---
<Judith Forrester - Last Filed: 01/07/17 18:11> Subjective - Date & Time of Evaluation Date of Evaluation: 01/07/17 Time of Evaluation: 07:25 - Subjective Subjective: PGY1 on Dr Ying's service: Patient seen and examined. Patient in no acute distress, resting comfortably in bed. Patient received new PEG with IR yesterday and has resumed tube feeds and medications. Objective - Vital Signs/Intake and Output Vital Signs (last 24 hours): Temp Pulse Resp BP Pulse Ox 98.1 F 69 20 90/65 L 97 01/07/17 17:23 01/07/17 17:23 01/07/17 17:23 01/07/17 17:23 01/07/17 17:23 Intake and Output: 01/07/17 01/07/17 06:59 18:59 Intake Total 1893 680 Output Total 1800 Balance 93 680 - Medications Medications: Current Medications Aspirin (Aspirin Chewable) 81 mg PEG DAILY [facility] Last Admin: 01/07/17 10:51 Dose: 81 mg Bethanechol Chloride (Urecholine) 30 mg PEG TID [facility] Last Admin: 01/07/17 17:35 Dose: 30 mg Carvedilol (Coreg) 3.125 mg PEG BID [facility] Last Admin: 01/07/17 17:25 Dose: Not Given Clopidogrel Bisulfate (Plavix) 75 mg PO DAILY [facility] Last Admin: 01/07/17 10:51 Dose: 75 mg Enoxaparin Sodium (Lovenox) 40 mg SC DAILY [facility] Last Admin: 01/07/17 10:51 Dose: 40 mg Famotidine (Pepcid) 20 mg PEG BID [facility] Last Admin: 01/07/17 17:34 Dose: 20 mg Finasteride (Proscar) 5 mg PEG DAILY [facility] Last Admin: 01/07/17 10:51 Dose: 5 mg Levetiracetam (Keppra) 500 mg PEG BID [facility] Last Admin: 01/07/17 17:34 Dose: 500 mg Tamsulosin HCl (Flomax) 0.4 mg PO DAILY [facility] Last Admin: 01/07/17 10:51 Dose: 0.4 mg - Labs Labs: 01/05/17 07:15 01/05/17 07:15 PT 10.6 SECONDS (9.7-12.2) 11/24/15 14:10 INR 1.0 11/24/15 14:10 APTT 25 SECONDS (21-34) 11/24/15 14:10 - Constitutional Appears: No Acute Distress - Head Exam Head Exam: ATRAUMATIC - Eye Exam Eye Exam: EOMI - ENT Exam ENT Exam: Mucous Membranes Moist - Neck Exam Additional comments: trach collar with thick secretions - Respiratory Exam Respiratory Exam: Clear to Ausculation Bilateral - Cardiovascular Exam Cardiovascular Exam: +S1, +S2 - GI/Abdominal Exam GI & Abdominal Exam: Soft, Normal Bowel Sounds Additional comments: PEG tube in place - Extremities Exam Extremities Exam: absent: Pedal Edema Additional comments: SCDs and heel protectors in place - Back Exam Additional comments: stage I sacral ulcer noted - Neurological Exam Neurological Exam: Awake - Skin Skin Exam: Dry, Warm Assessment and Plan - Assessment and Plan (Free Text) Assessment: PEG tube dysfunction IR placed new PEG 01/06, functioning appropriately UTI Triple lumen Yoo in place for irrigation, added neosporin to CBI 12/30, to be continued until 01/07/17 Urine Culture 12/03/16 - Positive Kleb pneumo, sensitive to cipro - resolved. Off antibiotics now Sacral Ulcers Stage I ulcer present, about 2 cm in length at upper sacral crease; area frequently alternates between Stage I and healed ulcer. Continue frequent turning, protective ointment and skin checks. wound care saw patient today, air mattress adjusted and protective ointment applied to sacrum Urinary Retention Flomax 0.4mg PEG daily Proscar 5mg PEG daily Bethanecol 30mg PEG TID- started after persistent retention (before current UTI ) and found to be effective. monitor I's and O's Respiratory failure trach collar in place - normal resp pattern, thick secretions CAD (coronary artery disease) s/p cardiac stents on 06/13/15 ASA 81mg via PEG daily Coreg 3.125mg PEG BID plavix 75mg PO daily Seizures Keppra 500mg PEG BID for seizure prophylaxis Lower extremity edema Lasix via PEG as needed. 01/05 mild edema- given 40mg via PEG Hypernatremia- resolved increased free water flushes from 300q8 to 300q6 labs 01/05 Na of 145, will keep 300q6 free water flushes Prophylactic measure Pepcid 20 mg PEG BID Lovenox 40mg SC daily SCDs and offloading boots continue to turn and reposition q2h Continue to monitor medication administrations and clinical presentation weekly labs <Donnell Ying M - Last Filed: 01/08/17 07:49> Objective - Vital Signs/Intake and Output Vital Signs (last 24 hours): Temp Pulse Resp BP Pulse Ox 98.5 F 84 20 120/82 98 01/08/17 00:00 01/08/17 00:00 01/08/17 00:00 01/08/17 00:00 01/08/17 00:00 Intake and Output: 01/08/17 01/08/17 06:59 18:59 Intake Total 2860 Output Total 2700 Balance 160 - Medications Medications: Current Medications Aspirin (Aspirin Chewable) 81 mg PEG DAILY [facility] Last Admin: 01/07/17 10:51 Dose: 81 mg Bethanechol Chloride (Urecholine) 30 mg PEG TID [facility] Last Admin: 01/07/17 17:35 Dose: 30 mg Carvedilol (Coreg) 3.125 mg PEG BID [facility] Last Admin: 01/07/17 17:25 Dose: Not Given Clopidogrel Bisulfate (Plavix) 75 mg PO DAILY [facility] Last Admin: 01/07/17 10:51 Dose: 75 mg Enoxaparin Sodium (Lovenox) 40 mg SC DAILY [facility] Last Admin: 01/07/17 10:51 Dose: 40 mg Famotidine (Pepcid) 20 mg PEG BID [facility] Last Admin: 01/07/17 17:34 Dose: 20 mg Finasteride (Proscar) 5 mg PEG DAILY [facility] Last Admin: 01/07/17 10:51 Dose: 5 mg Levetiracetam (Keppra) 500 mg PEG BID [facility] Last Admin: 01/07/17 17:34 Dose: 500 mg Tamsulosin HCl (Flomax) 0.4 mg PO DAILY [facility] Last Admin: 01/07/17 10:51 Dose: 0.4 mg - Labs Labs: 01/05/17 07:15 01/05/17 07:15 PT 10.6 SECONDS (9.7-12.2) 11/24/15 14:10 INR 1.0 11/24/15 14:10 APTT 25 SECONDS (21-34) 11/24/15 14:10 Attending/Attestation - Attestation I have personally seen and examined this patient.: Yes I have fully participated in the care of the patient.: Yes I have reviewed all pertinent clinical information, including history, physical exam and plan: Yes Notes (Text): 01/08/17 07:48 Patient was seen and examined at bedside with the resident Status post PEG tube placement PEG tube is functioning now Continue medication as ordered Continue turn and position every 2 hours to prevent decubitus ulcers Awaiting placement
[2017-01-08] MEDS: levETIRAcetam 100 mg/ml (5ml) Oral Syringe PEG SCH ×2 (10:51→18:22)
[2017-01-08] MEDS: Enoxaparin 40 mg Syringe SC SCH (10:51)
--- NOTE | 2017-01-08 16:59 | CP.PCM.PN ---
<Judith Forrester - Last Filed: 01/08/17 16:56> Subjective - Date & Time of Evaluation Date of Evaluation: 01/08/17 Time of Evaluation: 09:20 - Subjective Subjective: PGY1 on Dr Ying's service Patient seen and examined. Patient without acute events overnight, resting comfortably in bed. Patient occasionally moves eyes. Objective - Vital Signs/Intake and Output Vital Signs (last 24 hours): Temp Pulse Resp BP Pulse Ox 98.2 F 77 20 109/70 100 01/08/17 08:37 01/08/17 08:37 01/08/17 08:37 01/08/17 08:37 01/08/17 08:37 Intake and Output: 01/08/17 01/08/17 06:59 18:59 Intake Total 2860 680 Output Total 2700 2500 Balance 160 -1820 - Medications Medications: Current Medications Aspirin (Aspirin Chewable) 81 mg PEG DAILY [facility] Last Admin: 01/08/17 10:52 Dose: 81 mg Bethanechol Chloride (Urecholine) 30 mg PEG TID [facility] Last Admin: 01/08/17 14:46 Dose: 30 mg Carvedilol (Coreg) 3.125 mg PEG BID [facility] Last Admin: 01/08/17 10:52 Dose: 3.125 mg Clopidogrel Bisulfate (Plavix) 75 mg PO DAILY [facility] Last Admin: 01/08/17 10:52 Dose: 75 mg Enoxaparin Sodium (Lovenox) 40 mg SC DAILY [facility] Last Admin: 01/08/17 10:51 Dose: 40 mg Famotidine (Pepcid) 20 mg PEG BID [facility] Last Admin: 01/08/17 10:52 Dose: 20 mg Finasteride (Proscar) 5 mg PEG DAILY [facility] Last Admin: 01/08/17 10:52 Dose: 5 mg Levetiracetam (Keppra) 500 mg PEG BID [facility] Last Admin: 01/08/17 10:51 Dose: 500 mg Tamsulosin HCl (Flomax) 0.4 mg PO DAILY [facility] Last Admin: 01/08/17 10:52 Dose: 0.4 mg - Labs Labs: 01/05/17 07:15 01/05/17 07:15 PT 10.6 SECONDS (9.7-12.2) 11/24/15 14:10 INR 1.0 11/24/15 14:10 APTT 25 SECONDS (21-34) 11/24/15 14:10 - Constitutional Appears: No Acute Distress - Head Exam Head Exam: ATRAUMATIC - Eye Exam Eye Exam: EOMI - ENT Exam ENT Exam: Mucous Membranes Moist - Neck Exam Additional comments: trach collar with thick secretions present - Respiratory Exam Respiratory Exam: Clear to Ausculation Bilateral, NORMAL BREATHING PATTERN - Cardiovascular Exam Cardiovascular Exam: +S1, +S2 - GI/Abdominal Exam GI & Abdominal Exam: Soft, Normal Bowel Sounds Additional comments: PEG in place, area around PEG clean and dry - Extremities Exam Extremities Exam: absent: Pedal Edema Additional comments: SCDs and heel protectors in place - Back Exam Additional comments: stage I pressure ulcer on sacrum noted, no appreciable skin breaks - Neurological Exam Neurological Exam: Awake - Skin Skin Exam: Dry, Warm Assessment and Plan - Assessment and Plan (Free Text) Assessment: PEG tube dysfunction IR placed new PEG 01/06, functioning appropriately UTI CBI discontinued 01/08, baker catheter removed, patient with condom catheter Triple lumen Baker in place for irrigation, added neosporin to CBI 12/30 Urine Culture 12/03/16 - Positive Kleb pneumo, sensitive to cipro - resolved. Off antibiotics now Sacral Ulcers Stage I ulcer present on sacrum; area frequently alternates between Stage I and healed ulcer. Continue frequent turning, protective ointment and skin checks. 01/07- wound care saw patient, air mattress adjusted and protective ointment applied to sacrum Urinary Retention Flomax 0.4mg PEG daily Proscar 5mg PEG daily Bethanecol 30mg PEG TID- started after persistent retention (before current UTI ) and found to be effective. monitor I's and O's Respiratory failure trach collar in place - normal resp pattern, thick secretions CAD (coronary artery disease) s/p cardiac stents on 06/13/15 ASA 81mg via PEG daily Coreg 3.125mg PEG BID plavix 75mg PO daily Seizures Keppra 500mg PEG BID for seizure prophylaxis Lower extremity edema Lasix via PEG as needed. 01/05 mild edema- given 40mg via PEG Hypernatremia- resolved free water flushes 300q6 labs 01/05 Na of 145, will keep 300q6 free water flushes Prophylactic measure Pepcid 20 mg PEG BID Lovenox 40mg SC daily SCDs and offloading boots continue to turn and reposition q2h Continue to monitor medication administrations and clinical presentation weekly labs <StepanSolangeDonnell M - Last Filed: 01/08/17 17:16> Objective - Vital Signs/Intake and Output Vital Signs (last 24 hours): Temp Pulse Resp BP Pulse Ox 98.2 F 77 20 109/70 100 01/08/17 08:37 01/08/17 08:37 01/08/17 08:37 01/08/17 08:37 01/08/17 08:37 Intake and Output: 01/08/17 01/08/17 06:59 18:59 Intake Total 2860 680 Output Total 2700 2500 Balance 160 -1820 - Medications Medications: Current Medications Aspirin (Aspirin Chewable) 81 mg PEG DAILY [facility] Last Admin: 01/08/17 10:52 Dose: 81 mg Bethanechol Chloride (Urecholine) 30 mg PEG TID [facility] Last Admin: 01/08/17 14:46 Dose: 30 mg Carvedilol (Coreg) 3.125 mg PEG BID [facility] Last Admin: 01/08/17 10:52 Dose: 3.125 mg Clopidogrel Bisulfate (Plavix) 75 mg PO DAILY [facility] Last Admin: 01/08/17 10:52 Dose: 75 mg Enoxaparin Sodium (Lovenox) 40 mg SC DAILY [facility] Last Admin: 01/08/17 10:51 Dose: 40 mg Famotidine (Pepcid) 20 mg PEG BID [facility] Last Admin: 01/08/17 10:52 Dose: 20 mg Finasteride (Proscar) 5 mg PEG DAILY [facility] Last Admin: 01/08/17 10:52 Dose: 5 mg Levetiracetam (Keppra) 500 mg PEG BID [facility] Last Admin: 01/08/17 10:51 Dose: 500 mg Tamsulosin HCl (Flomax) 0.4 mg PO DAILY [facility] Last Admin: 01/08/17 10:52 Dose: 0.4 mg - Labs Labs: 01/05/17 07:15 01/05/17 07:15 PT 10.6 SECONDS (9.7-12.2) 11/24/15 14:10 INR 1.0 11/24/15 14:10 APTT 25 SECONDS (21-34) 11/24/15 14:10 Attending/Attestation - Attestation I have personally seen and examined this patient.: Yes I have fully participated in the care of the patient.: Yes I have reviewed all pertinent clinical information, including history, physical exam and plan: Yes Notes (Text): 01/08/17 17:15 Patient was seen and examined at bedside with the resident Patient turned and decubitus ulcers examined Continue local wound care Continue turn and position every 2 hours We will remove the CBI today and monitor for urine output
[2017-01-09] MEDS: Enoxaparin 40 mg Syringe SC SCH (11:01)
[2017-01-09] MEDS: levETIRAcetam 100 mg/ml (5ml) Oral Syringe PEG SCH ×2 (11:02→17:58)
--- NOTE | 2017-01-09 13:53 | CP.PCM.PN ---
Subjective - Date & Time of Evaluation Date of Evaluation: 01/09/17 Time of Evaluation: 07:45 - Subjective Subjective: PGY1 on Dr. Ying's service: Patient in no acute distress with no events overnight. Patient voiding s/p removal baker catheter. Objective - Vital Signs/Intake and Output Vital Signs (last 24 hours): Temp Pulse Resp BP Pulse Ox 98.1 F 69 20 118/78 100 01/09/17 08:33 01/09/17 08:33 01/09/17 08:33 01/09/17 08:33 01/09/17 09:00 Intake and Output: 01/09/17 01/09/17 06:59 18:59 Intake Total 1260 Balance 1260 - Medications Medications: Current Medications Aspirin (Aspirin Chewable) 81 mg PEG DAILY [facility] Last Admin: 01/09/17 11:03 Dose: 81 mg Bethanechol Chloride (Urecholine) 30 mg PEG TID [facility] Last Admin: 01/09/17 13:35 Dose: 30 mg Carvedilol (Coreg) 3.125 mg PEG BID [facility] Last Admin: 01/09/17 11:03 Dose: 3.125 mg Clopidogrel Bisulfate (Plavix) 75 mg PO DAILY [facility] Last Admin: 01/09/17 11:05 Dose: 75 mg Enoxaparin Sodium (Lovenox) 40 mg SC DAILY [facility] Last Admin: 01/09/17 11:01 Dose: 40 mg Famotidine (Pepcid) 20 mg PEG BID [facility] Last Admin: 01/09/17 11:04 Dose: 20 mg Finasteride (Proscar) 5 mg PEG DAILY [facility] Last Admin: 01/09/17 11:05 Dose: 5 mg Levetiracetam (Keppra) 500 mg PEG BID [facility] Last Admin: 01/09/17 11:02 Dose: 500 mg Tamsulosin HCl (Flomax) 0.4 mg PO DAILY [facility] Last Admin: 01/09/17 11:04 Dose: 0.4 mg - Labs Labs: 01/05/17 07:15 01/05/17 07:15 PT 10.6 SECONDS (9.7-12.2) 11/24/15 14:10 INR 1.0 11/24/15 14:10 APTT 25 SECONDS (21-34) 11/24/15 14:10 - Constitutional Appears: No Acute Distress - Head Exam Head Exam: ATRAUMATIC - Eye Exam Eye Exam: EOMI - ENT Exam ENT Exam: Mucous Membranes Moist - Neck Exam Additional comments: trach collar with thick secretions present - Respiratory Exam Respiratory Exam: Clear to Ausculation Bilateral, NORMAL BREATHING PATTERN - Cardiovascular Exam Cardiovascular Exam: +S1, +S2 - GI/Abdominal Exam GI & Abdominal Exam: Soft, Normal Bowel Sounds Additional comments: PEG site clean and dry, tube feeding active - Exam Additional comments: condom catheter present, draining dark colored urine - Extremities Exam Additional comments: no edema lower extremities SCDs and heel protectors in place - Neurological Exam Neurological Exam: Awake - Skin Skin Exam: Dry, Warm Assessment and Plan - Assessment and Plan (Free Text) Assessment: PEG tube dysfunction IR placed new PEG 01/06, functioning appropriately UTI CBI discontinued 01/08, baker catheter removed, patient with condom catheter, voiding dark urine Triple lumen Baker in place for irrigation, added neosporin to CBI 12/30 Urine Culture 12/03/16 - Positive Kleb pneumo, sensitive to cipro - resolved. Off antibiotics now Sacral Ulcers Stage I ulcer present on sacrum; area frequently alternates between Stage I and healed ulcer. Continue frequent turning, protective ointment and skin checks. 01/07- wound care saw patient, air mattress adjusted and protective ointment applied to sacrum Urinary Retention Flomax 0.4mg PEG daily Proscar 5mg PEG daily Bethanecol 30mg PEG TID- started after persistent retention (before current UTI ) and found to be effective. monitor I's and O's Respiratory failure trach collar in place - normal resp pattern, thick secretions CAD (coronary artery disease) s/p cardiac stents on 06/13/15 ASA 81mg via PEG daily Coreg 3.125mg PEG BID plavix 75mg PO daily Seizures Keppra 500mg PEG BID for seizure prophylaxis Lower extremity edema Lasix via PEG as needed. 01/05 mild edema- given 40mg via PEG Hypernatremia- resolved free water flushes 300q8 labs 01/05 Na of 145, will keep 300q6 free water flushes Prophylactic measure Pepcid 20 mg PEG BID Lovenox 40mg SC daily SCDs and offloading boots continue to turn and reposition q2h Continue to monitor medication administrations and clinical presentation weekly labs
--- NOTE | 2017-01-10 03:58 | CP.PCM.PN ---
<Al Khalil - Last Filed: 01/10/17 03:55> Subjective - Date & Time of Evaluation Date of Evaluation: 01/10/17 Time of Evaluation: 03:56 - Subjective Subjective: Internal Medicine Progress Note Dr. Ying Patient seen adn examined at bedside. No acute distress. Nursing staff reports no issues. Patient appears at baseline. Abdominal distension resolved. No interval change from prior examinations. Objective - Vital Signs/Intake and Output Vital Signs (last 24 hours): Temp Pulse Resp BP Pulse Ox 98.5 F 77 20 111/75 97 01/10/17 00:00 01/10/17 00:00 01/10/17 00:00 01/10/17 00:00 01/10/17 00:00 Intake and Output: 01/09/17 01/10/17 18:59 06:59 Intake Total 780 580 Output Total 580 Balance 200 580 - Medications Medications: Current Medications Aspirin (Aspirin Chewable) 81 mg PEG DAILY [facility] Last Admin: 01/09/17 11:03 Dose: 81 mg Bethanechol Chloride (Urecholine) 30 mg PEG TID [facility] Last Admin: 01/09/17 18:00 Dose: 30 mg Carvedilol (Coreg) 3.125 mg PEG BID [facility] Last Admin: 01/09/17 17:58 Dose: 3.125 mg Clopidogrel Bisulfate (Plavix) 75 mg PO DAILY [facility] Last Admin: 01/09/17 11:05 Dose: 75 mg Enoxaparin Sodium (Lovenox) 40 mg SC DAILY [facility] Last Admin: 01/09/17 11:01 Dose: 40 mg Famotidine (Pepcid) 20 mg PEG BID [facility] Last Admin: 01/09/17 17:59 Dose: 20 mg Finasteride (Proscar) 5 mg PEG DAILY [facility] Last Admin: 01/09/17 11:05 Dose: 5 mg Levetiracetam (Keppra) 500 mg PEG BID [facility] Last Admin: 01/09/17 17:58 Dose: 500 mg Tamsulosin HCl (Flomax) 0.4 mg PO DAILY [facility] Last Admin: 01/09/17 11:04 Dose: 0.4 mg - Labs Labs: 01/05/17 07:15 01/05/17 07:15 PT 10.6 SECONDS (9.7-12.2) 01/02/16 14:10 INR 1.0 11/24/15 14:10 APTT 25 SECONDS (21-34) 11/24/15 14:10 - Additional Findings Additional findings: - Constitutional Appears: Well, No Acute Distress - Head Exam Head Exam: ATRAUMATIC, NORMAL INSPECTION, NORMOCEPHALIC Additional comments: trach collar in place - Neck Exam Additional comments: trach collar in place - Respiratory Exam Respiratory Exam: NORMAL BREATHING PATTERN. absent: Rales, Wheezes, Respiratory Distress, Stridor - Cardiovascular Exam Cardiovascular Exam: REGULAR RHYTHM, RRR, +S1, +S2. absent: Diastolic murmur, Murmur - GI/Abdominal Exam GI & Abdominal Exam: Soft, Normal Bowel Sounds. absent: Distended, Tenderness - Extremities Exam Extremities Exam: Normal Capillary Refill. absent: Joint Swelling, Pedal Edema - Neurological Exam Neurological Exam: Awake - Skin Skin Exam: Dry, Intact, Normal Color, Warm Assessment and Plan - Assessment and Plan (Free Text) Plan: PEG tube dysfunction IR placed new PEG 01/06, functioning appropriately UTI CBI discontinued 01/08, baker catheter removed, patient with condom catheter, voiding dark urine Triple lumen Baker in place for irrigation, added neosporin to CBI 12/30 Urine Culture 12/03/16 - Positive Kleb pneumo, sensitive to cipro - resolved. Off antibiotics now Sacral Ulcers Stage I ulcer present on sacrum; area frequently alternates between Stage I and healed ulcer. Continue frequent turning, protective ointment and skin checks. 01/07- wound care saw patient, air mattress adjusted and protective ointment applied to sacrum Urinary Retention Flomax 0.4mg PEG daily Proscar 5mg PEG daily Bethanecol 30mg PEG TID- started after persistent retention (before current UTI ) and found to be effective. monitor I's and O's Respiratory failure trach collar in place - normal resp pattern, thick secretions CAD (coronary artery disease) s/p cardiac stents on 06/13/15 ASA 81mg via PEG daily Coreg 3.125mg PEG BID plavix 75mg PO daily Seizures Keppra 500mg PEG BID for seizure prophylaxis Lower extremity edema Lasix via PEG as needed. 01/05 mild edema- given 40mg via PEG Hypernatremia- resolved free water flushes 300q8 labs 01/05 Na of 145, will keep 300q6 free water flushes Prophylactic measure Pepcid 20 mg PEG BID Lovenox 40mg SC daily SCDs and offloading boots continue to turn and reposition q2h Continue to monitor medication administrations and clinical presentation weekly labs <Donnell Ying - Last Filed: 01/10/17 16:01> Objective - Vital Signs/Intake and Output Vital Signs (last 24 hours): Temp Pulse Resp BP Pulse Ox 97.4 F L 89 20 112/78 98 01/10/17 08:11 01/10/17 08:11 01/10/17 08:11 01/10/17 08:11 01/10/17 08:11 Intake and Output: 01/10/17 01/10/17 06:59 18:59 Intake Total 1360 Output Total 200 300 Balance 1160 -300 - Medications Medications: Current Medications Aspirin (Aspirin Chewable) 81 mg PEG DAILY [facility] Last Admin: 01/10/17 10:52 Dose: 81 mg Bethanechol Chloride (Urecholine) 30 mg PEG TID [facility] Last Admin: 01/10/17 14:04 Dose: 30 mg Carvedilol (Coreg) 3.125 mg PEG BID [facility] Last Admin: 01/10/17 10:52 Dose: 3.125 mg Clopidogrel Bisulfate (Plavix) 75 mg PO DAILY [facility] Last Admin: 01/10/17 10:52 Dose: 75 mg Enoxaparin Sodium (Lovenox) 40 mg SC DAILY [facility] Last Admin: 01/10/17 10:52 Dose: 40 mg Famotidine (Pepcid) 20 mg PEG BID [facility] Last Admin: 01/10/17 10:52 Dose: 20 mg Finasteride (Proscar) 5 mg PEG DAILY [facility] Last Admin: 01/10/17 10:53 Dose: 5 mg Levetiracetam (Keppra) 500 mg PEG BID [facility] Last Admin: 01/10/17 10:52 Dose: 500 mg Tamsulosin HCl (Flomax) 0.4 mg PO DAILY [facility] Last Admin: 01/10/17 10:52 Dose: 0.4 mg - Labs Labs: 01/05/17 07:15 01/05/17 07:15 PT 10.6 SECONDS (9.7-12.2) 11/24/15 14:10 INR 1.0 11/24/15 14:10 APTT 25 SECONDS (21-34) 11/24/15 14:10 Attending/Attestation - Attestation I have personally seen and examined this patient.: Yes I have fully participated in the care of the patient.: Yes I have reviewed all pertinent clinical information, including history, physical exam and plan: Yes Notes (Text): 01/10/17 16:01 Patient was seen and examined at bedside No change in clinical condition Continue current management Turn and position every 2 hours
[2017-01-10] MEDS: levETIRAcetam 100 mg/ml (5ml) Oral Syringe PEG SCH ×2 (10:52→18:26)
[2017-01-10] MEDS: Enoxaparin 40 mg Syringe SC SCH (10:52)
--- NOTE | 2017-01-11 02:44 | CP.PCM.PN ---
<Al Khalil - Last Filed: 01/11/17 02:42> Subjective - Date & Time of Evaluation Date of Evaluation: 01/11/17 Time of Evaluation: 02:42 - Subjective Subjective: Internal Medicine Progress Note Dr. Ying Patient seen and examined at bedside. No acute distress. Nursing staff reports no issues. Patient appears at baseline. No interval change from prior examinations. Objective - Vital Signs/Intake and Output Vital Signs (last 24 hours): Temp Pulse Resp BP Pulse Ox 98.0 F 76 18 110/73 97 01/11/17 01:57 01/11/17 01:57 01/11/17 01:57 01/11/17 01:57 01/11/17 01:57 Intake and Output: 01/10/17 01/11/17 18:59 06:59 Intake Total 780 Output Total 300 100 Balance -300 680 - Medications Medications: Current Medications Aspirin (Aspirin Chewable) 81 mg PEG DAILY [facility] Last Admin: 01/10/17 10:52 Dose: 81 mg Bethanechol Chloride (Urecholine) 30 mg PEG TID [facility] Last Admin: 01/10/17 18:27 Dose: 30 mg Carvedilol (Coreg) 3.125 mg PEG BID [facility] Last Admin: 01/10/17 18:26 Dose: 3.125 mg Clopidogrel Bisulfate (Plavix) 75 mg PO DAILY [facility] Last Admin: 01/10/17 10:52 Dose: 75 mg Enoxaparin Sodium (Lovenox) 40 mg SC DAILY [facility] Last Admin: 01/10/17 10:52 Dose: 40 mg Famotidine (Pepcid) 20 mg PEG BID [facility] Last Admin: 01/10/17 18:27 Dose: 20 mg Finasteride (Proscar) 5 mg PEG DAILY [facility] Last Admin: 01/10/17 10:53 Dose: 5 mg Levetiracetam (Keppra) 500 mg PEG BID [facility] Last Admin: 01/10/17 18:26 Dose: 500 mg Tamsulosin HCl (Flomax) 0.4 mg PO DAILY [facility] Last Admin: 01/10/17 10:52 Dose: 0.4 mg - Labs Labs: 01/05/17 07:15 01/05/17 07:15 PT 10.6 SECONDS (9.7-12.2) 11/24/15 14:10 INR 1.0 11/24/15 14:10 APTT 25 SECONDS (21-34) 11/24/15 14:10 - Additional Findings Additional findings: - Constitutional Appears: Well, No Acute Distress - Head Exam Head Exam: ATRAUMATIC, NORMAL INSPECTION, NORMOCEPHALIC Additional comments: trach collar in place - Neck Exam Additional comments: trach collar in place - Respiratory Exam Respiratory Exam: NORMAL BREATHING PATTERN. absent: Rales, Wheezes, Respiratory Distress, Stridor - Cardiovascular Exam Cardiovascular Exam: REGULAR RHYTHM, RRR, +S1, +S2. absent: Diastolic murmur, Murmur - GI/Abdominal Exam GI & Abdominal Exam: Soft, Normal Bowel Sounds. absent: Distended, Tenderness - Extremities Exam Extremities Exam: Normal Capillary Refill. absent: Joint Swelling, Pedal Edema - Neurological Exam Neurological Exam: Awake - Skin Skin Exam: Dry, Intact, Normal Color, Warm Assessment and Plan - Assessment and Plan (Free Text) Plan: PEG tube dysfunction IR placed new PEG 01/06, functioning appropriately UTI CBI discontinued 01/08, baker catheter removed, patient with condom catheter, voiding dark urine Triple lumen Baker in place for irrigation, added neosporin to CBI 12/30 Urine Culture 12/03/16 - Positive Kleb pneumo, sensitive to cipro - resolved. Off antibiotics now Sacral Ulcers Stage I ulcer present on sacrum; area frequently alternates between Stage I and healed ulcer. Continue frequent turning, protective ointment and skin checks. 01/07- wound care saw patient, air mattress adjusted and protective ointment applied to sacrum Urinary Retention Flomax 0.4mg PEG daily Proscar 5mg PEG daily Bethanecol 30mg PEG TID- started after persistent retention (before current UTI ) and found to be effective. monitor I's and O's Respiratory failure trach collar in place - normal resp pattern, thick secretions CAD (coronary artery disease) s/p cardiac stents on 06/13/15 ASA 81mg via PEG daily Coreg 3.125mg PEG BID plavix 75mg PO daily Seizures Keppra 500mg PEG BID for seizure prophylaxis Lower extremity edema Lasix via PEG as needed. 01/05 mild edema- given 40mg via PEG Hypernatremia- resolved free water flushes 300q8 labs 01/05 Na of 145, will keep 300q6 free water flushes Prophylactic measure Pepcid 20 mg PEG BID Lovenox 40mg SC daily SCDs and offloading boots continue to turn and reposition q2h Continue to monitor medication administrations and clinical presentation weekly labs <StepanCarlos A davidkevin Romero - Last Filed: 01/11/17 14:20> Objective - Vital Signs/Intake and Output Vital Signs (last 24 hours): Temp Pulse Resp BP Pulse Ox 98.0 F 76 18 110/73 97 01/11/17 01:57 01/11/17 08:59 01/11/17 01:57 01/11/17 01:57 01/11/17 01:57 Intake and Output: 01/11/17 01/11/17 06:59 18:59 Intake Total 780 780 Output Total 100 400 Balance 680 380 - Medications Medications: Current Medications Aspirin (Aspirin Chewable) 81 mg PEG DAILY [facility] Last Admin: 01/11/17 10:44 Dose: 81 mg Bethanechol Chloride (Urecholine) 30 mg PEG TID [facility] Last Admin: 01/11/17 10:45 Dose: 30 mg Carvedilol (Coreg) 3.125 mg PEG BID [facility] Last Admin: 01/11/17 10:44 Dose: 3.125 mg Clopidogrel Bisulfate (Plavix) 75 mg PO DAILY [facility] Last Admin: 01/11/17 10:44 Dose: 75 mg Enoxaparin Sodium (Lovenox) 40 mg SC DAILY [facility] Last Admin: 01/11/17 10:44 Dose: 40 mg Famotidine (Pepcid) 20 mg PEG BID [facility] Last Admin: 01/11/17 10:49 Dose: 20 mg Finasteride (Proscar) 5 mg PEG DAILY [facility] Last Admin: 01/11/17 10:45 Dose: 5 mg Levetiracetam (Keppra) 500 mg PEG BID [facility] Last Admin: 01/11/17 10:45 Dose: 500 mg Tamsulosin HCl (Flomax) 0.4 mg PO DAILY [facility] Last Admin: 01/11/17 10:44 Dose: 0.4 mg - Labs Labs: 01/11/17 08:49 01/11/17 08:49 PT 10.6 SECONDS (9.7-12.2) 11/24/15 14:10 INR 1.0 11/24/15 14:10 APTT 25 SECONDS (21-34) 11/24/15 14:10 Attending/Attestation - Attestation I have personally seen and examined this patient.: Yes I have fully participated in the care of the patient.: Yes I have reviewed all pertinent clinical information, including history, physical exam and plan: Yes Notes (Text): 01/11/17 14:19 Patient was seen and examined at bedside Clinical condition unchanged Urine output noted Urine is clear now Continue current management Awaiting placement
[2017-01-11 08:59] LABS: BASO # 0.1 K/uL (0.0-0.2); BASO % 0.6 % (0.0-2.0); EOS # 0.4 K/uL (0.0-0.7); EOS % 4.1 % (0.0-4.0); HEMOGLOBIN 12.5 g/dL (12.0-18.0); LYMPH # 2.3 K/uL (1.0-4.3); LYMPH % 26.7 % (20.0-40.0); MEAN CELL VOLUME 86.4 fL (80.0-94.0); MEAN CORPUSCULAR HEMOGLOBIN 28.3 pg (27.0-31.0); MEAN CORPUSCULAR HGB CONC 32.8 g/dL (33.0-37.0); MEAN PLATELET VOLUME 8.6 fL (7.2-11.7); MONO # 0.9 K/uL (0.0-0.8); MONO % 10.6 % (0.0-10.0); RBC 4.41 Mil/uL (4.40-5.90); RED CELL DISTRIBUTION WIDTH 15.5 % (11.5-14.5); WHITE BLOOD COUNT 8.7 K/uL (4.8-10.8)
[2017-01-11 09:36] LABS: ALBUMIN 3.8 g/dL (3.5-5.0)
[2017-01-11 09:39] LABS: ALB/GLOB RATIO 0.9 (1.0-2.1); ALT/SGPT 54 U/L (21-72); AST/SGOT 26 U/L (17-59); BLOOD UREA NITROGEN 18 mg/dL (9-20); GFR NON-AFRICAN AMERICAN > 60
[2017-01-11 09:40] LABS: CALCIUM 8.6 mg/dl (8.6-10.4)
[2017-01-11] MEDS: Enoxaparin 40 mg Syringe SC SCH (10:44)
[2017-01-11] MEDS: levETIRAcetam 100 mg/ml (5ml) Oral Syringe PEG SCH ×2 (10:45→16:59)
[2017-01-12] MEDS: Enoxaparin 40 mg Syringe SC SCH (10:43)
[2017-01-12] MEDS: levETIRAcetam 100 mg/ml (5ml) Oral Syringe PEG SCH ×2 (10:44→18:10)
[2017-01-12] MEDS: guaiFENesin 200 mg/10 ml Syrup UD PO PRN (14:47)
--- NOTE | 2017-01-12 17:18 | CP.PCM.PN ---
<Judith Forrester DO - Last Filed: 01/12/17 17:15> Subjective - Date & Time of Evaluation Date of Evaluation: 01/12/17 Time of Evaluation: 07:40 - Subjective Subjective: PGY1 On Dr Hallman's Service Patient seen and examined. Patient in no acute distress. Patient still with thick secretions per trach. Objective - Vital Signs/Intake and Output Vital Signs (last 24 hours): Temp Pulse Resp BP Pulse Ox 98.5 F 73 20 119/82 100 01/12/17 08:00 01/12/17 09:05 01/12/17 08:00 01/12/17 08:00 01/12/17 08:00 Intake and Output: 01/12/17 01/12/17 06:59 18:59 Intake Total 1560 780 Output Total 1400 Balance 160 780 - Medications Medications: Current Medications Aspirin (Aspirin Chewable) 81 mg PEG DAILY [facility] Last Admin: 01/12/17 10:43 Dose: 81 mg Bethanechol Chloride (Urecholine) 30 mg PEG TID [facility] Last Admin: 01/12/17 14:46 Dose: 30 mg Carvedilol (Coreg) 3.125 mg PEG BID [facility] Last Admin: 01/12/17 10:43 Dose: 3.125 mg Clopidogrel Bisulfate (Plavix) 75 mg PO DAILY [facility] Last Admin: 01/12/17 10:43 Dose: 75 mg Enoxaparin Sodium (Lovenox) 40 mg SC DAILY [facility] Last Admin: 01/12/17 10:43 Dose: 40 mg Famotidine (Pepcid) 20 mg PEG BID [facility] Last Admin: 01/12/17 10:43 Dose: 20 mg Finasteride (Proscar) 5 mg PEG DAILY [facility] Last Admin: 01/12/17 10:44 Dose: 5 mg Guaifenesin (Robitussin) 200 mg PO Q4H PRN PRN Reason: Cough and congestion Last Admin: 01/12/17 14:47 Dose: 200 mg Levetiracetam (Keppra) 500 mg PEG BID [facility] Last Admin: 01/12/17 10:44 Dose: 500 mg Tamsulosin HCl (Flomax) 0.4 mg PO DAILY [facility] Last Admin: 01/12/17 10:43 Dose: 0.4 mg - Labs Labs: 01/11/17 08:49 01/11/17 08:49 PT 10.6 SECONDS (9.7-12.2) 11/24/15 14:10 INR 1.0 11/24/15 14:10 APTT 25 SECONDS (21-34) 11/24/15 14:10 - Constitutional Appears: Non-toxic, No Acute Distress - Head Exam Head Exam: ATRAUMATIC - Eye Exam Eye Exam: EOMI - ENT Exam ENT Exam: Mucous Membranes Moist - Neck Exam Additional comments: trach with thick secretions - Respiratory Exam Respiratory Exam: Clear to Ausculation Bilateral - Cardiovascular Exam Cardiovascular Exam: +S1, +S2 - GI/Abdominal Exam GI & Abdominal Exam: Soft, Normal Bowel Sounds Additional comments: PEG tube functioning, no leaks noted - Exam Additional comments: condom catheter present- clear yellow urine present - Extremities Exam Extremities Exam: absent: Pedal Edema Additional comments: SCDs/ heel protectors in place - Neurological Exam Neurological Exam: Awake - Skin Skin Exam: Dry, Warm Assessment and Plan - Assessment and Plan (Free Text) Assessment: PEG tube dysfunction- resolved IR placed new PEG 01/06, functioning appropriately UTI- resolved CBI discontinued 01/08, baker catheter removed, patient with condom catheter, voiding dark urine Triple lumen Baker in place for irrigation, added neosporin to CBI 12/30 Urine Culture 12/03/16 - Positive Kleb pneumo, sensitive to cipro - resolved. Off antibiotics now Sacral Ulcers Stage I ulcer present on sacrum; area frequently alternates between Stage I and healed ulcer. Continue frequent turning, protective ointment and skin checks. 01/07- wound care saw patient, air mattress adjusted and protective ointment applied to sacrum Urinary Retention Flomax 0.4mg PEG daily Proscar 5mg PEG daily Bethanecol 30mg PEG TID- started after persistent retention (before current UTI ) and found to be effective. monitor I's and O's Respiratory failure trach collar in place - normal resp pattern, thick secretions 01/12- starting mucinex for secretions CAD (coronary artery disease) s/p cardiac stents on 06/13/15 ASA 81mg via PEG daily Coreg 3.125mg PEG BID plavix 75mg PO daily Seizures Keppra 500mg PEG BID for seizure prophylaxis Lower extremity edema Lasix via PEG as needed. 01/05 mild edema- given 40mg via PEG Hypernatremia- resolved free water flushes 300q8 labs 01/11 Na of 145, will keep 300q8 free water flushes Prophylactic measure Pepcid 20 mg PEG BID Lovenox 40mg SC daily SCDs and offloading boots continue to turn and reposition q2h Continue to monitor medication administrations and clinical presentation weekly labs <Donavan Hallman - Last Filed: 02/04/17 16:27> Objective - Vital Signs/Intake and Output Vital Signs (last 24 hours): Temp Pulse Resp BP Pulse Ox 98.2 F 72 19 127/78 100 02/04/17 07:55 02/04/17 07:55 02/04/17 07:55 02/04/17 07:55 02/04/17 07:55 Intake and Output: 02/04/17 02/04/17 06:59 18:59 Intake Total 1730 Output Total 700 600 Balance 1030 -600 - Medications Medications: Current Medications Aspirin (Aspirin Chewable) 81 mg PEG DAILY [facility] Last Admin: 02/04/17 13:09 Dose: 81 mg Bethanechol Chloride (Urecholine) 50 mg PEG TID [facility] Last Admin: 02/04/17 13:09 Dose: 50 mg Carvedilol (Coreg) 3.125 mg PEG BID [facility] Last Admin: 02/04/17 09:21 Dose: 3.125 mg Clopidogrel Bisulfate (Plavix) 75 mg PEG DAILY [facility] Last Admin: 02/04/17 09:21 Dose: 75 mg Emollient Ointment (Vaseline Oint) 5 gm TOP BID PRN PRN Reason: Dry skin Last Admin: 01/31/17 11:27 Dose: 5 gm Enoxaparin Sodium (Lovenox) 40 mg SC DAILY [facility] Last Admin: 02/04/17 09:22 Dose: 40 mg Famotidine (Pepcid) 20 mg PEG BID [facility] Last Admin: 02/04/17 09:21 Dose: 20 mg Finasteride (Proscar) 5 mg PEG DAILY [facility] Last Admin: 02/04/17 09:21 Dose: 5 mg Guaifenesin (Robitussin) 200 mg PO Q4H PRN PRN Reason: Cough and congestion Last Admin: 02/02/17 11:40 Dose: 200 mg Levetiracetam (Keppra) 500 mg PEG BID [facility] Last Admin: 02/04/17 09:22 Dose: 500 mg Tamsulosin HCl (Flomax) 0.4 mg PEG DAILY [facility] Last Admin: 02/04/17 16:05 Dose: 0.4 mg - Labs Labs: 02/02/17 07:26 02/02/17 07:26 PT 10.6 SECONDS (9.7-12.2) 11/24/15 14:10 INR 1.0 11/24/15 14:10 APTT 25 SECONDS (21-34) 11/24/15 14:10 Attending/Attestation - Attestation I have personally seen and examined this patient.: Yes I have fully participated in the care of the patient.: Yes I have reviewed all pertinent clinical information, including history, physical exam and plan: Yes Notes (Text): Patient seen and examined with the resident. Agree with the residents evaluation, assessment and plan. Cont current care.
[2017-01-13] MEDS: Enoxaparin 40 mg Syringe SC SCH (10:35)
[2017-01-13] MEDS: levETIRAcetam 100 mg/ml (5ml) Oral Syringe PEG SCH ×2 (10:36→17:37)
[2017-01-13] MEDS: guaiFENesin 200 mg/10 ml Syrup UD PO PRN (10:36)
--- NOTE | 2017-01-13 14:54 | CP.PCM.PN ---
<Judith Forrester DO - Last Filed: 01/13/17 14:51> Subjective - Date & Time of Evaluation Date of Evaluation: 01/13/17 Time of Evaluation: 07:35 - Subjective Subjective: PGY1 on Dr Hallman's service: Patient seen and examined. Patient without acute events overnight. Patient resting comfortably. Objective - Vital Signs/Intake and Output Vital Signs (last 24 hours): Temp Pulse Resp BP Pulse Ox 98.4 F 82 20 119/76 98 01/13/17 07:15 01/13/17 09:23 01/13/17 07:15 01/13/17 07:15 01/13/17 07:15 Intake and Output: 01/13/17 01/13/17 06:59 18:59 Intake Total 1560 Output Total 200 750 Balance 1360 -750 - Medications Medications: Current Medications Aspirin (Aspirin Chewable) 81 mg PEG DAILY [facility] Last Admin: 01/13/17 10:36 Dose: 81 mg Bethanechol Chloride (Urecholine) 30 mg PEG TID [facility] Last Admin: 01/13/17 14:22 Dose: 30 mg Carvedilol (Coreg) 3.125 mg PEG BID [facility] Last Admin: 01/13/17 10:36 Dose: 3.125 mg Clopidogrel Bisulfate (Plavix) 75 mg PO DAILY [facility] Last Admin: 01/13/17 10:36 Dose: 75 mg Emollient Ointment (Vaseline Oint) 5 gm TOP BID PRN PRN Reason: Dry skin Enoxaparin Sodium (Lovenox) 40 mg SC DAILY [facility] Last Admin: 01/13/17 10:35 Dose: 40 mg Famotidine (Pepcid) 20 mg PEG BID [facility] Last Admin: 01/13/17 10:36 Dose: 20 mg Finasteride (Proscar) 5 mg PEG DAILY [facility] Last Admin: 01/13/17 10:36 Dose: 5 mg Guaifenesin (Robitussin) 200 mg PO Q4H PRN PRN Reason: Cough and congestion Last Admin: 01/13/17 10:36 Dose: 200 mg Levetiracetam (Keppra) 500 mg PEG BID [facility] Last Admin: 01/13/17 10:36 Dose: 500 mg Tamsulosin HCl (Flomax) 0.4 mg PO DAILY [facility] Last Admin: 01/13/17 10:36 Dose: 0.4 mg - Labs Labs: 01/11/17 08:49 01/11/17 08:49 PT 10.6 SECONDS (9.7-12.2) 11/24/15 14:10 INR 1.0 11/24/15 14:10 APTT 25 SECONDS (21-34) 11/24/15 14:10 - Constitutional Appears: No Acute Distress - Head Exam Head Exam: ATRAUMATIC, NORMOCEPHALIC - Eye Exam Eye Exam: EOMI - ENT Exam ENT Exam: Mucous Membranes Moist Additional comments: dry cracked lips - Neck Exam Additional comments: trach collar with thick white secretions - Respiratory Exam Respiratory Exam: Clear to Ausculation Bilateral, NORMAL BREATHING PATTERN - Cardiovascular Exam Cardiovascular Exam: +S1, +S2 - GI/Abdominal Exam GI & Abdominal Exam: Soft, Normal Bowel Sounds Additional comments: PEG tube with clean and dry dressing - Exam Additional comments: condom catheter in place - Extremities Exam Extremities Exam: absent: Pedal Edema Additional comments: SCDs and heel protectors in place - Neurological Exam Neurological Exam: Awake - Skin Skin Exam: Dry, Warm Assessment and Plan - Assessment and Plan (Free Text) Assessment: PEG tube dysfunction- resolved IR placed new PEG 01/06, functioning appropriately UTI- resolved CBI discontinued 01/08, baker catheter removed, patient with condom catheter, voiding yellow/ clear urine Triple lumen Baker in place for irrigation, added neosporin to CBI 12/30 Urine Culture 12/03/16 - Positive Kleb pneumo, sensitive to cipro - resolved. Off antibiotics now Sacral Ulcers Stage I ulcer present on sacrum; area frequently alternates between Stage I and healed ulcer. Continue frequent turning, protective ointment and skin checks. 01/07- wound care saw patient, air mattress adjusted and protective ointment applied to sacrum Urinary Retention Flomax 0.4mg PEG daily Proscar 5mg PEG daily Bethanecol 30mg PEG TID- started after persistent retention (before current UTI ) and found to be effective. monitor I's and O's Respiratory failure trach collar in place - normal resp pattern, thick secretions 01/12- starting mucinex for secretions CAD (coronary artery disease) s/p cardiac stents on 06/13/15 ASA 81mg via PEG daily Coreg 3.125mg PEG BID plavix 75mg PO daily Seizures Keppra 500mg PEG BID for seizure prophylaxis Lower extremity edema Lasix via PEG as needed. 01/05 mild edema- given 40mg via PEG Hypernatremia- resolved free water flushes 300q8 labs 01/11 Na of 145, will keep 300q8 free water flushes Prophylactic measure Pepcid 20 mg PEG BID Lovenox 40mg SC daily SCDs and offloading boots continue to turn and reposition q2h Continue to monitor medication administrations and clinical presentation weekly labs <Donavan Hallman - Last Filed: 02/10/17 11:37> Objective - Vital Signs/Intake and Output Vital Signs (last 24 hours): Temp Pulse Resp BP Pulse Ox 98.4 F 72 20 118/82 98 02/10/17 07:38 02/10/17 07:38 02/10/17 07:38 02/10/17 07:38 02/10/17 07:38 Intake and Output: 02/10/17 02/10/17 06:59 18:59 Intake Total 1850 Output Total 900 Balance 950 - Medications Medications: Current Medications Aspirin (Aspirin Chewable) 81 mg PEG DAILY [facility] Last Admin: 02/10/17 10:45 Dose: 81 mg Bethanechol Chloride (Urecholine) 50 mg PEG TID [facility] Last Admin: 02/10/17 10:47 Dose: 50 mg Carvedilol (Coreg) 3.125 mg PEG BID [facility] Last Admin: 02/10/17 10:45 Dose: 3.125 mg Clopidogrel Bisulfate (Plavix) 75 mg PEG DAILY [facility] Last Admin: 02/10/17 10:45 Dose: 75 mg Emollient Ointment (Vaseline Oint) 5 gm TOP BID PRN PRN Reason: Dry skin Last Admin: 01/31/17 11:27 Dose: 5 gm Enoxaparin Sodium (Lovenox) 40 mg SC DAILY [facility] Last Admin: 02/10/17 10:46 Dose: 40 mg Famotidine (Pepcid) 20 mg PEG BID [facility] Last Admin: 02/10/17 10:45 Dose: 20 mg Finasteride (Proscar) 5 mg PEG DAILY [facility] Last Admin: 02/10/17 10:47 Dose: 5 mg Tamsulosin HCl (Flomax) 0.4 mg PEG DAILY [facility] Last Admin: 02/10/17 10:45 Dose: 0.4 mg - Labs Labs: 02/09/17 08:30 02/09/17 08:30 PT 10.6 SECONDS (9.7-12.2) 11/24/15 14:10 INR 1.0 11/24/15 14:10 APTT 25 SECONDS (21-34) 11/24/15 14:10 Attending/Attestation - Attestation I have personally seen and examined this patient.: Yes I have fully participated in the care of the patient.: Yes I have reviewed all pertinent clinical information, including history, physical exam and plan: Yes Notes (Text): Patient seen and examined with the resident. Agree with the residents evaluation, assessment and plan. PEG tube dysfunction- resolved IR placed new PEG 01/06, functioning appropriately UTI- resolved CBI discontinued 01/08, baker catheter removed, patient with condom catheter, voiding yellow/ clear urine Triple lumen Baker in place for irrigation, added neosporin to CBI 12/30 Urine Culture 12/03/16 - Positive Kleb pneumo, sensitive to cipro - resolved. Off antibiotics now Sacral Ulcers Stage I ulcer present on sacrum; area frequently alternates between Stage I and healed ulcer. Continue frequent turning, protective ointment and skin checks. 01/07- wound care saw patient, air mattress adjusted and protective ointment applied to sacrum Urinary Retention Flomax 0.4mg PEG daily Proscar 5mg PEG daily Bethanecol 30mg PEG TID- started after persistent retention (before current UTI ) and found to be effective. monitor I's and O's Respiratory failure trach collar in place - normal resp pattern, thick secretions 01/12- starting mucinex for secretions CAD (coronary artery disease) s/p cardiac stents on 06/13/15 ASA 81mg via PEG daily Coreg 3.125mg PEG BID plavix 75mg PO daily
[2017-01-14] MEDS: guaiFENesin 200 mg/10 ml Syrup UD PO PRN (10:40)
[2017-01-14] MEDS: Enoxaparin 40 mg Syringe SC SCH (10:41)
[2017-01-14] MEDS: levETIRAcetam 100 mg/ml (5ml) Oral Syringe PEG SCH ×2 (10:42→17:25)
--- NOTE | 2017-01-14 17:31 | CP.PCM.PN ---
<Judith Forrester - Last Filed: 01/14/17 18:11> Subjective - Date & Time of Evaluation Date of Evaluation: 01/14/17 Time of Evaluation: 07:50 - Subjective Subjective: PGY1 on Dr Beth's service: Patient seen and examined. No acute events overnight per nursing. Patient resting comfortably. Objective - Vital Signs/Intake and Output Vital Signs (last 24 hours): Temp Pulse Resp BP Pulse Ox 98.4 F 77 20 118/81 98 01/14/17 16:00 01/14/17 16:00 01/14/17 16:00 01/14/17 16:00 01/14/17 16:00 Intake and Output: 01/14/17 01/14/17 06:59 18:59 Intake Total 1560 880 Output Total 400 Balance 1160 880 - Medications Medications: Current Medications Aspirin (Aspirin Chewable) 81 mg PEG DAILY [facility] [place] Last Admin: 01/14/17 10:41 Dose: 81 mg Bethanechol Chloride (Urecholine) 30 mg PEG TID [facility] [place] Last Admin: 01/14/17 17:24 Dose: 30 mg Carvedilol (Coreg) 3.125 mg PEG BID [facility] [place] Last Admin: 01/14/17 17:25 Dose: 3.125 mg Clopidogrel Bisulfate (Plavix) 75 mg PO DAILY [facility] [place] Last Admin: 01/14/17 10:41 Dose: 75 mg Emollient Ointment (Vaseline Oint) 5 gm TOP BID PRN PRN Reason: Dry skin Enoxaparin Sodium (Lovenox) 40 mg SC DAILY [facility] [place] Last Admin: 01/14/17 10:41 Dose: 40 mg Famotidine (Pepcid) 20 mg PEG BID [facility] [place] Last Admin: 01/14/17 17:25 Dose: 20 mg Finasteride (Proscar) 5 mg PEG DAILY [facility] [place] Last Admin: 01/14/17 10:42 Dose: 5 mg Guaifenesin (Robitussin) 200 mg PO Q4H PRN PRN Reason: Cough and congestion Last Admin: 01/14/17 10:40 Dose: 200 mg Levetiracetam (Keppra) 500 mg PEG BID [facility] [place] Last Admin: 01/14/17 17:25 Dose: 500 mg Tamsulosin HCl (Flomax) 0.4 mg PO DAILY [facility] [place] Last Admin: 01/14/17 10:41 Dose: 0.4 mg - Labs Labs: 01/11/17 08:49 01/11/17 08:49 PT 10.6 SECONDS (9.7-12.2) 11/24/15 14:10 INR 1.0 11/24/15 14:10 APTT 25 SECONDS (21-34) 11/24/15 14:10 - Constitutional Appears: Non-toxic, No Acute Distress - Head Exam Head Exam: ATRAUMATIC, NORMOCEPHALIC - Eye Exam Eye Exam: EOMI - ENT Exam Additional comments: dry cracked lips - Neck Exam Additional comments: trach collar - Respiratory Exam Respiratory Exam: Clear to Ausculation Bilateral. absent: Rales, Rhonchi, Wheezes - Cardiovascular Exam Cardiovascular Exam: +S1, +S2 - GI/Abdominal Exam GI & Abdominal Exam: Soft, Normal Bowel Sounds Additional comments: PEG tube in place - Exam Additional comments: condom catheter in place - Extremities Exam Extremities Exam: absent: Pedal Edema Additional comments: SCDs and heel protectors in place - Neurological Exam Neurological Exam: Awake - Skin Skin Exam: Dry, Warm Assessment and Plan - Assessment and Plan (Free Text) Assessment: PEG tube dysfunction- resolved IR placed new PEG 01/06, functioning appropriately UTI- resolved CBI discontinued 01/08, baker catheter removed, patient with condom catheter, voiding yellow/ clear urine Triple lumen Baker in place for irrigation, added neosporin to CBI 12/30 Urine Culture 12/03/16 - Positive Kleb pneumo, sensitive to cipro - resolved. Off antibiotics now Sacral Ulcers Stage I ulcer present on sacrum; area frequently alternates between Stage I and healed ulcer. Continue frequent turning, protective ointment and skin checks. 01/07- wound care saw patient, air mattress adjusted and protective ointment applied to sacrum Urinary Retention Flomax 0.4mg PEG daily Proscar 5mg PEG daily Bethanecol 30mg PEG TID- started after persistent retention (before current UTI ) and found to be effective. monitor I's and O's Respiratory failure trach collar in place - normal resp pattern, thick secretions 01/12- starting mucinex for secretions CAD (coronary artery disease) s/p cardiac stents on 06/13/15 ASA 81mg via PEG daily Coreg 3.125mg PEG BID plavix 75mg PO daily Seizures Keppra 500mg PEG BID for seizure prophylaxis Lower extremity edema Lasix via PEG as needed. 01/05 mild edema- given 40mg via PEG Hypernatremia- resolved increase free water flushes to 400cc q8h labs 01/11 Na of 145 Prophylactic measure Pepcid 20 mg PEG BID Lovenox 40mg SC daily SCDs and offloading boots continue to turn and reposition q2h Continue to monitor medication administrations and clinical presentation weekly labs <Nathaniel Beth - Last Filed: 01/14/17 19:08> Objective - Vital Signs/Intake and Output Vital Signs (last 24 hours): Temp Pulse Resp BP Pulse Ox 98.4 F 77 20 118/81 98 01/14/17 16:00 01/14/17 16:00 01/14/17 16:00 01/14/17 16:00 01/14/17 16:00 Intake and Output: 01/14/17 01/15/17 18:59 06:59 Intake Total 880 Balance 880 - Medications Medications: Current Medications Aspirin (Aspirin Chewable) 81 mg PEG DAILY [facility] [place] Last Admin: 01/14/17 10:41 Dose: 81 mg Bethanechol Chloride (Urecholine) 30 mg PEG TID [facility] [place] Last Admin: 01/14/17 17:24 Dose: 30 mg Carvedilol (Coreg) 3.125 mg PEG BID [facility] [place] Last Admin: 01/14/17 17:25 Dose: 3.125 mg Clopidogrel Bisulfate (Plavix) 75 mg PO DAILY [facility] [place] Last Admin: 01/14/17 10:41 Dose: 75 mg Emollient Ointment (Vaseline Oint) 5 gm TOP BID PRN PRN Reason: Dry skin Enoxaparin Sodium (Lovenox) 40 mg SC DAILY [facility] [place] Last Admin: 01/14/17 10:41 Dose: 40 mg Famotidine (Pepcid) 20 mg PEG BID [facility] [place] Last Admin: 01/14/17 17:25 Dose: 20 mg Finasteride (Proscar) 5 mg PEG DAILY [facility] [place] Last Admin: 01/14/17 10:42 Dose: 5 mg Guaifenesin (Robitussin) 200 mg PO Q4H PRN PRN Reason: Cough and congestion Last Admin: 01/14/17 10:40 Dose: 200 mg Levetiracetam (Keppra) 500 mg PEG BID [facility] [place] Last Admin: 01/14/17 17:25 Dose: 500 mg Tamsulosin HCl (Flomax) 0.4 mg PO DAILY [facility] [place] Last Admin: 01/14/17 10:41 Dose: 0.4 mg - Labs Labs: 01/11/17 08:49 01/11/17 08:49 PT 10.6 SECONDS (9.7-12.2) 11/24/15 14:10 INR 1.0 11/24/15 14:10 APTT 25 SECONDS (21-34) 11/24/15 14:10 Attending/Attestation - Attestation I have personally seen and examined this patient.: Yes I have fully participated in the care of the patient.: Yes I have reviewed all pertinent clinical information, including history, physical exam and plan: Yes Notes (Text): Patient admitted s/p cardiac arrest with ensuing anoxic encephalopathy; prolonged hospital stay due to inability to find placement; Active issues: Recurrent UTI - Now s/p 3 weeks of CBI (completed 01/07) after last urine culture showed multi-drug resistant organism; urine still cloudy; will not repeat culture unless patient shows signs of sepsis or develops urinary retention (currently on bethanecol, continue); Hypernatremia - Currently borderline; will increase free H2O flushes from 300 to 400 cc q8h; CAD s/p WILLIE - on ASA/plavix, continue; continue low dose coreg for systolic dysfunction (no signs of CHF); Sacral Decubitus Ulcer - 2 cm stage I ulcer at R upper sacral crease; apply protective ointment after each BM cleaning, frequent re-positioning. 01/14/17 19:02
[2017-01-15] MEDS: guaiFENesin 200 mg/10 ml Syrup UD PO PRN (11:03)
[2017-01-15] MEDS: levETIRAcetam 100 mg/ml (5ml) Oral Syringe PEG SCH ×2 (11:03→17:27)
[2017-01-15] MEDS: Petrolatum Oint Foilpak (5 gm) TOP PRN (11:04)
[2017-01-15] MEDS: Enoxaparin 40 mg Syringe SC SCH (11:06)
--- NOTE | 2017-01-15 16:21 | CP.PCM.PN ---
<Judith Forrester DO - Last Filed: 01/15/17 16:18> Subjective - Date & Time of Evaluation Date of Evaluation: 01/15/17 Time of Evaluation: 09:05 - Subjective Subjective: PGY1 on Dr Beth's service Patient seen and examined. Patient without acute events overnight. Patient resting comfortably on trach collar. Objective - Vital Signs/Intake and Output Vital Signs (last 24 hours): Temp Pulse Resp BP Pulse Ox 98.3 F 79 20 101/69 99 01/15/17 07:41 01/15/17 07:41 01/15/17 07:41 01/15/17 07:41 01/15/17 07:41 Intake and Output: 01/15/17 01/15/17 06:59 18:59 Intake Total 1760 880 Output Total 900 600 Balance 860 280 - Medications Medications: Current Medications Aspirin (Aspirin Chewable) 81 mg PEG DAILY [facility] Last Admin: 01/15/17 11:03 Dose: 81 mg Bethanechol Chloride (Urecholine) 30 mg PEG TID [facility] Last Admin: 01/15/17 14:24 Dose: 30 mg Carvedilol (Coreg) 3.125 mg PEG BID [facility] Last Admin: 01/15/17 11:04 Dose: 3.125 mg Clopidogrel Bisulfate (Plavix) 75 mg PO DAILY [facility] Last Admin: 01/15/17 11:03 Dose: 75 mg Emollient Ointment (Vaseline Oint) 5 gm TOP BID PRN PRN Reason: Dry skin Last Admin: 01/15/17 11:04 Dose: 5 gm Enoxaparin Sodium (Lovenox) 40 mg SC DAILY [facility] Last Admin: 01/15/17 11:06 Dose: 40 mg Famotidine (Pepcid) 20 mg PEG BID [facility] Last Admin: 01/15/17 11:04 Dose: 20 mg Finasteride (Proscar) 5 mg PEG DAILY [facility] Last Admin: 01/15/17 11:04 Dose: 5 mg Guaifenesin (Robitussin) 200 mg PO Q4H PRN PRN Reason: Cough and congestion Last Admin: 01/15/17 11:03 Dose: 200 mg Levetiracetam (Keppra) 500 mg PEG BID [facility] Last Admin: 01/15/17 11:03 Dose: 500 mg Tamsulosin HCl (Flomax) 0.4 mg PO DAILY [facility] Last Admin: 01/15/17 11:04 Dose: 0.4 mg - Labs Labs: 01/11/17 08:49 01/11/17 08:49 PT 10.6 SECONDS (9.7-12.2) 11/24/15 14:10 INR 1.0 11/24/15 14:10 APTT 25 SECONDS (21-34) 11/24/15 14:10 - Constitutional Appears: Non-toxic, No Acute Distress - Head Exam Head Exam: ATRAUMATIC, NORMOCEPHALIC - Eye Exam Eye Exam: EOMI - ENT Exam ENT Exam: Mucous Membranes Moist - Neck Exam Additional comments: trach collar with thick secretions - Respiratory Exam Respiratory Exam: Clear to Ausculation Bilateral, NORMAL BREATHING PATTERN - Cardiovascular Exam Cardiovascular Exam: +S1, +S2 - GI/Abdominal Exam GI & Abdominal Exam: Soft, Normal Bowel Sounds Additional comments: PEG in place - Exam Additional comments: condom catheter on patient noted to void more urine with direct pressure over bladder - Extremities Exam Extremities Exam: absent: Pedal Edema Additional comments: SCDs and heel protectors in place - Back Exam Additional comments: stage I sacral ulcer noted - Neurological Exam Neurological Exam: Awake - Skin Skin Exam: Dry, Warm Assessment and Plan - Assessment and Plan (Free Text) Assessment: PEG tube dysfunction- resolved IR placed new PEG 01/06, functioning appropriately UTI- resolved CBI discontinued 01/08, baker catheter removed, patient with condom catheter- voiding yellow/ slightly cloudy urine, will continue to monitor Triple lumen Baker in place for irrigation, added neosporin to CBI 12/30 Urine Culture 12/03/16 - Positive Kleb pneumo, sensitive to cipro - resolved. Off antibiotics now Sacral Ulcers Stage I ulcer present on sacrum; area frequently alternates between Stage I and healed ulcer. Continue frequent turning, protective ointment and skin checks. 01/07- wound care saw patient, air mattress adjusted and protective ointment applied to sacrum Urinary Retention Flomax 0.4mg PEG daily Proscar 5mg PEG daily increase Bethanecol 50mg PEG TID- started after persistent retention (before current UTI) and found to be effective. monitor I's and O's check bladder scan for residual urine Respiratory failure trach collar in place - normal resp pattern, thick secretions 01/12- starting mucinex for secretions CAD (coronary artery disease) s/p cardiac stents on 06/13/15 ASA 81mg via PEG daily Coreg 3.125mg PEG BID plavix 75mg PO daily Seizures Keppra 500mg PEG BID for seizure prophylaxis Lower extremity edema Lasix via PEG as needed. 01/05 mild edema- given 40mg via PEG Hypernatremia- resolved increase free water flushes to 400cc q8h labs 01/11 Na of 145 Prophylactic measure Pepcid 20 mg PEG BID Lovenox 40mg SC daily SCDs and offloading boots continue to turn and reposition q2h Continue to monitor medication administrations and clinical presentation weekly labs <Nathaniel Beth - Last Filed: 03/03/17 08:29> Objective - Vital Signs/Intake and Output Vital Signs (last 24 hours): Temp Pulse Resp BP Pulse Ox 98.7 F 80 20 115/79 97 03/03/17 07:40 03/03/17 07:59 03/03/17 07:40 03/03/17 07:40 03/03/17 07:40 Intake and Output: 03/03/17 03/03/17 06:59 18:59 Intake Total 1760 Output Total 900 Balance 860 - Medications Medications: Current Medications Aspirin (Aspirin Chewable) 81 mg PEG DAILY [facility] Last Admin: 03/02/17 09:26 Dose: 81 mg Bethanechol Chloride (Urecholine) 50 mg PEG TID [facility] Last Admin: 03/02/17 18:41 Dose: 50 mg Bisacodyl (Dulcolax) 5 mg PO Q72H PRN PRN Reason: Constipation Carvedilol (Coreg) 3.125 mg PEG BID [facility] Last Admin: 03/02/17 18:40 Dose: 3.125 mg Clopidogrel Bisulfate (Plavix) 75 mg PEG DAILY [facility] Last Admin: 03/02/17 09:26 Dose: 75 mg Emollient Ointment (Vaseline Oint) 5 gm TOP BID PRN PRN Reason: Dry skin Enoxaparin Sodium (Lovenox) 40 mg SC DAILY [facility] Last Admin: 03/02/17 09:27 Dose: 40 mg Famotidine (Pepcid) 20 mg PEG BID [facility] Last Admin: 03/02/17 18:40 Dose: 20 mg Finasteride (Proscar) 5 mg PEG DAILY [facility] Last Admin: 03/02/17 09:26 Dose: 5 mg Levetiracetam (Keppra) 500 mg PEG BID [facility] Last Admin: 03/02/17 18:40 Dose: 500 mg Tamsulosin HCl (Flomax) 0.4 mg PEG DAILY [facility] Last Admin: 03/02/17 09:27 Dose: 0.4 mg - Labs Labs: 03/02/17 06:03 03/02/17 06:03 PT 10.6 SECONDS (9.7-12.2) 11/24/15 14:10 INR 1.0 11/24/15 14:10 APTT 25 SECONDS (21-34) 11/24/15 14:10 Attending/Attestation - Attestation I have personally seen and examined this patient.: Yes I have fully participated in the care of the patient.: Yes I have reviewed all pertinent clinical information, including history, physical exam and plan: Yes
--- NOTE | 2017-01-16 07:13 | CP.PCM.PN ---
<Imani Ramon - Last Filed: 01/16/17 11:20> Subjective - Date & Time of Evaluation Date of Evaluation: 01/16/17 Time of Evaluation: 07:00 - Subjective Subjective: PGY1 Medicine Note for Dr. Beth Patient seen and examined at bedside. Clinically unchanged. Patient had 650cc output overnight. Afebrile with VSS Patient has not had a BM PEG feeds @ 60cc/hr and patient tolerating. Offloading boots secure Patient lying in bed in no acute distress this AM ROS unobtainable Objective - Vital Signs/Intake and Output Vital Signs (last 24 hours): Temp Pulse Resp BP Pulse Ox 98.2 F 80 20 114/73 99 01/15/17 23:58 01/15/17 23:58 01/15/17 23:58 01/15/17 23:58 01/15/17 23:58 Intake and Output: 01/16/17 01/16/17 06:59 18:59 Intake Total 1740 Output Total 850 Balance 890 - Medications Medications: Current Medications Aspirin (Aspirin Chewable) 81 mg PEG DAILY [facility] Last Admin: 01/15/17 11:03 Dose: 81 mg Bethanechol Chloride (Urecholine) 50 mg PEG TID [facility] Last Admin: 01/15/17 18:00 Dose: 50 mg Carvedilol (Coreg) 3.125 mg PEG BID [facility] Last Admin: 01/15/17 17:28 Dose: 3.125 mg Clopidogrel Bisulfate (Plavix) 75 mg PO DAILY [facility] Last Admin: 01/15/17 11:03 Dose: 75 mg Emollient Ointment (Vaseline Oint) 5 gm TOP BID PRN PRN Reason: Dry skin Last Admin: 01/15/17 11:04 Dose: 5 gm Enoxaparin Sodium (Lovenox) 40 mg SC DAILY [facility] Last Admin: 01/15/17 11:06 Dose: 40 mg Famotidine (Pepcid) 20 mg PEG BID [facility] Last Admin: 01/15/17 17:28 Dose: 20 mg Finasteride (Proscar) 5 mg PEG DAILY [facility] Last Admin: 01/15/17 11:04 Dose: 5 mg Guaifenesin (Robitussin) 200 mg PO Q4H PRN PRN Reason: Cough and congestion Last Admin: 01/15/17 11:03 Dose: 200 mg Levetiracetam (Keppra) 500 mg PEG BID [facility] Last Admin: 01/15/17 17:27 Dose: 500 mg Tamsulosin HCl (Flomax) 0.4 mg PO DAILY [facility] Last Admin: 01/15/17 11:04 Dose: 0.4 mg - Labs Labs: 01/11/17 08:49 01/11/17 08:49 PT 10.6 SECONDS (9.7-12.2) 11/24/15 14:10 INR 1.0 11/24/15 14:10 APTT 25 SECONDS (21-34) 11/24/15 14:10 - Constitutional Appears: Non-toxic, No Acute Distress - Head Exam Head Exam: ATRAUMATIC, NORMOCEPHALIC - Eye Exam Eye Exam: Normal appearance. absent: Conjunctival injection, Scleral icterus - ENT Exam ENT Exam: Mucous Membranes Moist - Neck Exam Additional comments: trach collar with thick secretions - Respiratory Exam Respiratory Exam: Clear to Ausculation Bilateral, NORMAL BREATHING PATTERN. absent: Accessory Muscle Use, Rales, Rhonchi, Wheezes, Respiratory Distress - Cardiovascular Exam Cardiovascular Exam: +S1, +S2 - GI/Abdominal Exam GI & Abdominal Exam: Soft, Normal Bowel Sounds Additional comments: PEG in place- tolerating feeds - Exam Additional comments: condom cath in place - Extremities Exam Extremities Exam: absent: Pedal Edema Additional comments: SCD and heel protector in place - Neurological Exam Neurological Exam: Awake - Skin Skin Exam: Dry, Warm Assessment and Plan - Assessment and Plan (Free Text) Assessment: 64 yo M with unknown pmhx who was found unresponsive in driveway s/p cardiac arrest and anoxic encephalopathy Plan: PEG tube dysfunction- resolved IR placed new PEG 01/06, functioning appropriately UTI- resolved CBI discontinued 01/08, baker catheter removed, patient with condom catheter- voiding yellow/ slightly cloudy urine, will continue to monitor Triple lumen Baker in place for irrigation, added neosporin to CBI 12/30 Urine Culture 12/03/16 - Positive Kleb pneumo, sensitive to cipro - resolved. Off antibiotics now Sacral Ulcers Stage I ulcer present on sacrum; area frequently alternates between Stage I and healed ulcer. Continue frequent turning, protective ointment and skin checks. 01/07- wound care saw patient, air mattress adjusted and protective ointment applied to sacrum Urinary Retention Flomax 0.4mg PEG daily Proscar 5mg PEG daily increase Bethanecol 50mg PEG TID- started after persistent retention (before current UTI) and found to be effective. monitor I's and O's check bladder scan for residual urine Respiratory failure trach collar in place - normal resp pattern, thick secretions 01/12- starting mucinex for secretions CAD (coronary artery disease) s/p cardiac stents on 06/13/15 ASA 81mg via PEG daily Coreg 3.125mg PEG BID plavix 75mg PO daily Seizures Keppra 500mg PEG BID for seizure prophylaxis Lower extremity edema Lasix via PEG as needed. 01/05 mild edema- given 40mg via PEG Hypernatremia- resolved increase free water flushes to 400cc q8h labs 01/11 Na of 145 Prophylactic measure Pepcid 20 mg PEG BID Lovenox 40mg SC daily SCDs and offloading boots continue to turn and reposition q2h Continue to monitor medication administrations and clinical presentation weekly labs Plan discussed with Dr. Ignacia Ramon PGY1 <Nathaniel Beth - Last Filed: 01/17/17 10:15> Objective - Vital Signs/Intake and Output Vital Signs (last 24 hours): Temp Pulse Resp BP Pulse Ox 97.8 F 89 20 105/72 98 01/17/17 08:00 01/17/17 08:00 01/17/17 08:00 01/17/17 08:00 01/17/17 08:00 Intake and Output: 01/17/17 01/17/17 06:59 18:59 Output Total 300 Balance -300 - Medications Medications: Current Medications Aspirin (Aspirin Chewable) 81 mg PEG DAILY [facility] Last Admin: 01/16/17 09:43 Dose: 81 mg Bethanechol Chloride (Urecholine) 50 mg PEG TID [facility] Last Admin: 01/16/17 17:37 Dose: 50 mg Carvedilol (Coreg) 3.125 mg PEG BID [facility] Last Admin: 01/16/17 17:37 Dose: 3.125 mg Clopidogrel Bisulfate (Plavix) 75 mg PO DAILY [facility] Last Admin: 01/16/17 09:44 Dose: 75 mg Emollient Ointment (Vaseline Oint) 5 gm TOP BID PRN PRN Reason: Dry skin Last Admin: 01/15/17 11:04 Dose: 5 gm Enoxaparin Sodium (Lovenox) 40 mg SC DAILY [facility] Last Admin: 01/16/17 09:45 Dose: 40 mg Famotidine (Pepcid) 20 mg PEG BID [facility] Last Admin: 01/16/17 17:37 Dose: 20 mg Finasteride (Proscar) 5 mg PEG DAILY [facility] Last Admin: 01/16/17 09:44 Dose: 5 mg Guaifenesin (Robitussin) 200 mg PO Q4H PRN PRN Reason: Cough and congestion Last Admin: 01/15/17 11:03 Dose: 200 mg Levetiracetam (Keppra) 500 mg PEG BID [facility] Last Admin: 01/16/17 17:37 Dose: 500 mg Tamsulosin HCl (Flomax) 0.4 mg PO DAILY [facility] Last Admin: 01/16/17 09:44 Dose: 0.4 mg - Labs Labs: 01/11/17 08:49 01/11/17 08:49 PT 10.6 SECONDS (9.7-12.2) 11/24/15 14:10 INR 1.0 11/24/15 14:10 APTT 25 SECONDS (21-34) 11/24/15 14:10 Attending/Attestation - Attestation I have personally seen and examined this patient.: Yes I have fully participated in the care of the patient.: Yes I have reviewed all pertinent clinical information, including history, physical exam and plan: Yes Notes (Text): Patient admitted s/p cardiac arrest with ensuing anoxic encephalopathy; prolonged hospital stay due to inability to find placement; Active issues: Recurrent UTI - Now s/p 3 weeks of CBI (completed 01/07) after last urine culture showed multi-drug resistant organism; urine still cloudy; will not repeat culture unless patient shows signs of sepsis or develops urinary retention (currently on bethanecol, dose increased this week to 50 mg tid, continue); intermittent bladder scans twice weekly; Hypernatremia - Currently borderline; free H2O flushes increased this week from 300 to 400 cc q8h; CAD s/p WILLIE - on ASA/plavix, continue; continue low dose coreg for systolic dysfunction (no signs of CHF); Sacral Decubitus Ulcer - 2 cm stage I ulcer at R upper sacral crease; apply protective ointment after each BM cleaning, frequent re-positioning.
[2017-01-16] MEDS: Enoxaparin 40 mg Syringe SC SCH (09:45)
[2017-01-16] MEDS: levETIRAcetam 100 mg/ml (5ml) Oral Syringe PEG SCH ×2 (09:45→17:37)
--- NOTE | 2017-01-17 02:48 | CP.PCM.PN ---
<Judith Forrester - Last Filed: 01/17/17 02:41> Subjective - Date & Time of Evaluation Date of Evaluation: 01/17/17 Time of Evaluation: 02:52 - Subjective Subjective: Patient seen and examined. Patient awake and in no acute distress. Will continue to monitor urine output Objective - Vital Signs/Intake and Output Vital Signs (last 24 hours): Temp Pulse Resp BP Pulse Ox 97.6 F 84 20 122/73 99 01/16/17 23:33 01/16/17 23:33 01/16/17 23:33 01/16/17 23:33 01/16/17 23:33 Intake and Output: 01/16/17 01/17/17 18:59 06:59 Output Total 400 300 Balance -400 -300 - Medications Medications: Current Medications Aspirin (Aspirin Chewable) 81 mg PEG DAILY [facility] Last Admin: 01/16/17 09:43 Dose: 81 mg Bethanechol Chloride (Urecholine) 50 mg PEG TID [facility] Last Admin: 01/16/17 17:37 Dose: 50 mg Carvedilol (Coreg) 3.125 mg PEG BID [facility] Last Admin: 01/16/17 17:37 Dose: 3.125 mg Clopidogrel Bisulfate (Plavix) 75 mg PO DAILY [facility] Last Admin: 01/16/17 09:44 Dose: 75 mg Emollient Ointment (Vaseline Oint) 5 gm TOP BID PRN PRN Reason: Dry skin Last Admin: 01/15/17 11:04 Dose: 5 gm Enoxaparin Sodium (Lovenox) 40 mg SC DAILY [facility] Last Admin: 01/16/17 09:45 Dose: 40 mg Famotidine (Pepcid) 20 mg PEG BID [facility] Last Admin: 01/16/17 17:37 Dose: 20 mg Finasteride (Proscar) 5 mg PEG DAILY [facility] Last Admin: 01/16/17 09:44 Dose: 5 mg Guaifenesin (Robitussin) 200 mg PO Q4H PRN PRN Reason: Cough and congestion Last Admin: 01/15/17 11:03 Dose: 200 mg Levetiracetam (Keppra) 500 mg PEG BID [facility] Last Admin: 01/16/17 17:37 Dose: 500 mg Tamsulosin HCl (Flomax) 0.4 mg PO DAILY [facility] Last Admin: 01/16/17 09:44 Dose: 0.4 mg - Labs Labs: 01/11/17 08:49 01/11/17 08:49 PT 10.6 SECONDS (9.7-12.2) 11/24/15 14:10 INR 1.0 11/24/15 14:10 APTT 25 SECONDS (21-34) 11/24/15 14:10 - Constitutional Appears: No Acute Distress - Head Exam Head Exam: ATRAUMATIC - Eye Exam Eye Exam: EOMI - ENT Exam ENT Exam: Mucous Membranes Moist - Neck Exam Additional comments: trach collar with thick white secretions - Respiratory Exam Respiratory Exam: Clear to Ausculation Bilateral - Cardiovascular Exam Cardiovascular Exam: +S1, +S2 - GI/Abdominal Exam GI & Abdominal Exam: Soft, Normal Bowel Sounds Additional comments: PEG in place, tube feeds running - Exam Additional comments: condom catheter - Extremities Exam Additional comments: SCDs and heel protectors in place Assessment and Plan - Assessment and Plan (Free Text) Assessment: PEG tube dysfunction- resolved IR placed new PEG 01/06, functioning appropriately UTI- resolved CBI discontinued 01/08, baker catheter removed, patient with condom catheter- voiding yellow/ slightly cloudy urine, will continue to monitor Triple lumen Baker in place for irrigation, added neosporin to CBI 12/30 Urine Culture 12/03/16 - Positive Kleb pneumo, sensitive to cipro - resolved. Off antibiotics now Sacral Ulcers Stage I ulcer present on sacrum; area frequently alternates between Stage I and healed ulcer. Continue frequent turning, protective ointment and skin checks. 01/07- wound care saw patient, air mattress adjusted and protective ointment applied to sacrum Urinary Retention Flomax 0.4mg PEG daily Proscar 5mg PEG daily continue Bethanecol 50mg PEG TID- started after persistent retention and found to be effective. monitor I's and O's check bladder scan for residual urine three times weekly Respiratory failure trach collar in place - normal resp pattern, thick secretions 01/12- starting mucinex for secretions CAD (coronary artery disease) s/p cardiac stents on 06/13/15 ASA 81mg via PEG daily Coreg 3.125mg PEG BID plavix 75mg PO daily Seizures Keppra 500mg PEG BID for seizure prophylaxis Lower extremity edema Lasix via PEG as needed. 01/05 mild edema- given 40mg via PEG Hypernatremia- resolved increase free water flushes to 400cc q8h labs 01/11 Na of 145 Prophylactic measure Pepcid 20 mg PEG BID Lovenox 40mg SC daily SCDs and offloading boots continue to turn and reposition q2h Continue to monitor medication administrations and clinical presentation weekly labs <Nathaniel Beth - Last Filed: 01/18/17 10:10> Objective - Vital Signs/Intake and Output Vital Signs (last 24 hours): Temp Pulse Resp BP Pulse Ox 98.5 F 76 20 152/82 H 96 01/18/17 08:31 01/18/17 08:31 01/18/17 08:31 01/18/17 08:31 01/18/17 08:31 Intake and Output: 01/18/17 01/18/17 06:59 18:59 Intake Total 880 Output Total 800 Balance 80 - Medications Medications: Current Medications Aspirin (Aspirin Chewable) 81 mg PEG DAILY [facility] Last Admin: 01/17/17 18:29 Dose: 81 mg Bethanechol Chloride (Urecholine) 50 mg PEG TID [facility] Last Admin: 01/17/17 18:29 Dose: 50 mg Carvedilol (Coreg) 3.125 mg PEG BID [facility] Last Admin: 01/17/17 18:29 Dose: 3.125 mg Clopidogrel Bisulfate (Plavix) 75 mg PO DAILY [facility] Last Admin: 01/17/17 11:20 Dose: 75 mg Emollient Ointment (Vaseline Oint) 5 gm TOP BID PRN PRN Reason: Dry skin Last Admin: 01/15/17 11:04 Dose: 5 gm Enoxaparin Sodium (Lovenox) 40 mg SC DAILY [facility] Last Admin: 01/17/17 11:20 Dose: 40 mg Famotidine (Pepcid) 20 mg PEG BID [facility] Last Admin: 01/17/17 18:29 Dose: 20 mg Finasteride (Proscar) 5 mg PEG DAILY [facility] Last Admin: 01/17/17 11:21 Dose: 5 mg Guaifenesin (Robitussin) 200 mg PO Q4H PRN PRN Reason: Cough and congestion Last Admin: 01/15/17 11:03 Dose: 200 mg Levetiracetam (Keppra) 500 mg PEG BID [facility] Last Admin: 01/17/17 18:30 Dose: 500 mg Tamsulosin HCl (Flomax) 0.4 mg PO DAILY [facility] Last Admin: 01/17/17 11:19 Dose: 0.4 mg - Labs Labs: 01/11/17 08:49 01/11/17 08:49 PT 10.6 SECONDS (9.7-12.2) 11/24/15 14:10 INR 1.0 11/24/15 14:10 APTT 25 SECONDS (21-34) 11/24/15 14:10 Attending/Attestation - Attestation I have personally seen and examined this patient.: Yes I have fully participated in the care of the patient.: Yes I have reviewed all pertinent clinical information, including history, physical exam and plan: Yes Notes (Text): Patient admitted s/p cardiac arrest with ensuing anoxic encephalopathy; prolonged hospital stay due to inability to find placement; Condition discussed with daughter over phone today in the presence of patient's ; explained that there is no change in mental status which will not improve; Active issues: Recurrent UTI - Now s/p 3 weeks of CBI (completed 01/07) after last urine culture showed multi-drug resistant organism; urine still cloudy; will not repeat culture unless patient shows signs of sepsis or develops urinary retention (currently on bethanecol, dose increased this week to 50 mg tid, continue); intermittent bladder scans twice weekly; Hypernatremia - Currently borderline; free H2O flushes increased this week from 300 to 400 cc q8h; CAD s/p WILLIE - on ASA/plavix, continue; continue low dose coreg for systolic dysfunction (no signs of CHF); Sacral Decubitus Ulcer - 2 cm stage I ulcer at R upper sacral crease; apply protective ointment after each BM cleaning, frequent re-positioning.
[2017-01-17] MEDS: Enoxaparin 40 mg Syringe SC SCH (11:20)
[2017-01-17] MEDS: levETIRAcetam 100 mg/ml (5ml) Oral Syringe PEG SCH ×2 (11:21→18:30)
--- NOTE | 2017-01-18 05:25 | CP.PCM.PN ---
<Judith Forrester - Last Filed: 01/18/17 05:22> Subjective - Date & Time of Evaluation Date of Evaluation: 01/18/17 Time of Evaluation: 05:22 - Subjective Subjective: Patient seen and examined. Patient in no acute distress. No events overnight. Objective - Vital Signs/Intake and Output Vital Signs (last 24 hours): Temp Pulse Resp BP Pulse Ox 98 F 78 20 112/78 97 01/18/17 00:00 01/18/17 00:00 01/18/17 00:00 01/18/17 00:00 01/18/17 00:00 Intake and Output: 01/17/17 01/18/17 18:59 06:59 Intake Total 880 880 Output Total 600 500 Balance 280 380 - Medications Medications: Current Medications Aspirin (Aspirin Chewable) 81 mg PEG DAILY [facility] Last Admin: 01/17/17 18:29 Dose: 81 mg Bethanechol Chloride (Urecholine) 50 mg PEG TID [facility] Last Admin: 01/17/17 18:29 Dose: 50 mg Carvedilol (Coreg) 3.125 mg PEG BID [facility] Last Admin: 01/17/17 18:29 Dose: 3.125 mg Clopidogrel Bisulfate (Plavix) 75 mg PO DAILY [facility] Last Admin: 01/17/17 11:20 Dose: 75 mg Emollient Ointment (Vaseline Oint) 5 gm TOP BID PRN PRN Reason: Dry skin Last Admin: 01/15/17 11:04 Dose: 5 gm Enoxaparin Sodium (Lovenox) 40 mg SC DAILY [facility] Last Admin: 01/17/17 11:20 Dose: 40 mg Famotidine (Pepcid) 20 mg PEG BID [facility] Last Admin: 01/17/17 18:29 Dose: 20 mg Finasteride (Proscar) 5 mg PEG DAILY [facility] Last Admin: 01/17/17 11:21 Dose: 5 mg Guaifenesin (Robitussin) 200 mg PO Q4H PRN PRN Reason: Cough and congestion Last Admin: 01/15/17 11:03 Dose: 200 mg Levetiracetam (Keppra) 500 mg PEG BID [facility] Last Admin: 01/17/17 18:30 Dose: 500 mg Tamsulosin HCl (Flomax) 0.4 mg PO DAILY [facility] Last Admin: 01/17/17 11:19 Dose: 0.4 mg - Labs Labs: 01/11/17 08:49 01/11/17 08:49 PT 10.6 SECONDS (9.7-12.2) 11/24/15 14:10 INR 1.0 11/24/15 14:10 APTT 25 SECONDS (21-34) 11/24/15 14:10 - Constitutional Appears: No Acute Distress, Chronically Ill - Head Exam Head Exam: ATRAUMATIC - Eye Exam Eye Exam: EOMI - ENT Exam Additional comments: trach collar with thick secretions - Respiratory Exam Respiratory Exam: Clear to Ausculation Bilateral - Cardiovascular Exam Cardiovascular Exam: +S1, +S2 - GI/Abdominal Exam GI & Abdominal Exam: Soft, Normal Bowel Sounds Additional comments: PEG in place with tube feeds running - Exam Additional comments: condom catheter in place - Extremities Exam Extremities Exam: absent: Pedal Edema Additional comments: SCDs and heel protectors in place - Neurological Exam Neurological Exam: Awake - Skin Skin Exam: Dry, Warm Assessment and Plan - Assessment and Plan (Free Text) Assessment: PEG tube dysfunction- resolved IR placed new PEG 01/06, functioning appropriately UTI- resolved CBI discontinued 01/08, baker catheter removed, patient with condom catheter- voiding yellow/ slightly cloudy urine, will continue to monitor Triple lumen Baker in place for irrigation, added neosporin to CBI 12/30 Urine Culture 12/03/16 - Positive Kleb pneumo, sensitive to cipro - resolved. Off antibiotics now Sacral Ulcers Stage I ulcer present on sacrum; area frequently alternates between Stage I and healed ulcer. Continue frequent turning, protective ointment and skin checks. 01/07- wound care saw patient, air mattress adjusted and protective ointment applied to sacrum Urinary Retention Flomax 0.4mg PEG daily Proscar 5mg PEG daily continue Bethanecol 50mg PEG TID- started after persistent retention and found to be effective. monitor I's and O's check bladder scan for residual urine three times weekly Respiratory failure trach collar in place - normal resp pattern, thick secretions 01/12- starting mucinex for secretions CAD (coronary artery disease) s/p cardiac stents on 06/13/15 ASA 81mg via PEG daily Coreg 3.125mg PEG BID plavix 75mg PO daily Seizures Keppra 500mg PEG BID for seizure prophylaxis Lower extremity edema Lasix via PEG as needed. 01/05 mild edema- given 40mg via PEG Hypernatremia- resolved increase free water flushes to 400cc q8h labs 01/11 Na of 145 Prophylactic measure Pepcid 20 mg PEG BID Lovenox 40mg SC daily SCDs and offloading boots continue to turn and reposition q2h Continue to monitor medication administrations and clinical presentation weekly labs- will be drawn 01/19 <Nathaniel Beth - Last Filed: 01/18/17 18:35> Objective - Vital Signs/Intake and Output Vital Signs (last 24 hours): Temp Pulse Resp BP Pulse Ox 97.9 F 79 20 120/82 100 01/18/17 15:00 01/18/17 15:00 01/18/17 15:00 01/18/17 15:00 01/18/17 15:00 Intake and Output: 01/18/17 01/18/17 06:59 18:59 Intake Total 880 Output Total 800 300 Balance 80 -300 - Medications Medications: Current Medications Aspirin (Aspirin Chewable) 81 mg PEG DAILY [facility] Last Admin: 01/18/17 10:00 Dose: 81 mg Bethanechol Chloride (Urecholine) 50 mg PEG TID [facility] Last Admin: 01/18/17 13:51 Dose: 50 mg Carvedilol (Coreg) 3.125 mg PEG BID [facility] Last Admin: 01/18/17 10:00 Dose: 3.125 mg Clopidogrel Bisulfate (Plavix) 75 mg PO DAILY [facility] Last Admin: 01/18/17 10:00 Dose: 75 mg Emollient Ointment (Vaseline Oint) 5 gm TOP BID PRN PRN Reason: Dry skin Last Admin: 01/15/17 11:04 Dose: 5 gm Enoxaparin Sodium (Lovenox) 40 mg SC DAILY [facility] Last Admin: 01/18/17 10:00 Dose: 40 mg Famotidine (Pepcid) 20 mg PEG BID [facility] Last Admin: 01/18/17 10:00 Dose: 20 mg Finasteride (Proscar) 5 mg PEG DAILY [facility] Last Admin: 01/18/17 10:00 Dose: 5 mg Guaifenesin (Robitussin) 200 mg PO Q4H PRN PRN Reason: Cough and congestion Last Admin: 01/18/17 11:30 Dose: 200 mg Levetiracetam (Keppra) 500 mg PEG BID [facility] Last Admin: 01/18/17 10:00 Dose: 500 mg Tamsulosin HCl (Flomax) 0.4 mg PO DAILY [facility] Last Admin: 01/18/17 10:00 Dose: 0.4 mg - Labs Labs: 01/11/17 08:49 01/11/17 08:49 PT 10.6 SECONDS (9.7-12.2) 11/24/15 14:10 INR 1.0 11/24/15 14:10 APTT 25 SECONDS (21-34) 11/24/15 14:10 Attending/Attestation - Attestation I have personally seen and examined this patient.: Yes I have fully participated in the care of the patient.: Yes I have reviewed all pertinent clinical information, including history, physical exam and plan: Yes Notes (Text): Patient admitted s/p cardiac arrest with ensuing anoxic encephalopathy; prolonged hospital stay due to inability to find placement; Active issues: Recurrent UTI - Now s/p 3 weeks of CBI (completed 01/07) after last urine culture showed multi-drug resistant organism; will not repeat culture unless patient shows signs of sepsis or re-develops urinary retention (currently on bethanecol, dose increased last week to 50 mg tid, continue); intermittent bladder scans twice weekly (50 cc on scan today); Hypernatremia - Borderline on last bmp; free H2O flushes increased last week from 300 to 400 cc q8h; CAD s/p WILLIE - on ASA/plavix, continue; continue low dose coreg for systolic dysfunction (no signs of CHF); Sacral Decubitus Ulcer - 2 cm stage I ulcer at R upper sacral crease, appears to be extending inferiorly; apply protective ointment after each BM cleaning, frequent re-positioning. 01/18/17 18:29
[2017-01-18] MEDS: Enoxaparin 40 mg Syringe SC SCH (10:00)
[2017-01-18] MEDS: levETIRAcetam 100 mg/ml (5ml) Oral Syringe PEG SCH ×2 (10:00→19:02)
[2017-01-18] MEDS: guaiFENesin 200 mg/10 ml Syrup UD PO PRN (11:30)
[2017-01-19 07:25] LABS: BASO # 0.1 K/uL (0.0-0.2); BASO % 0.6 % (0.0-2.0); EOS # 0.3 K/uL (0.0-0.7); EOS % 3.6 % (0.0-4.0); HEMOGLOBIN 12.3 g/dL (12.0-18.0); LYMPH # 2.1 K/uL (1.0-4.3); LYMPH % 23.1 % (20.0-40.0); MEAN CELL VOLUME 86.6 fL (80.0-94.0); MEAN CORPUSCULAR HEMOGLOBIN 28.9 pg (27.0-31.0); MEAN CORPUSCULAR HGB CONC 33.4 g/dL (33.0-37.0); MEAN PLATELET VOLUME 9.2 fL (7.2-11.7); MONO # 0.8 K/uL (0.0-0.8); MONO % 8.7 % (0.0-10.0); NEUT # 5.8 K/uL (1.8-7.0); NRBC % 0.1 % (0.0-2.0); RBC 4.24 Mil/uL (4.40-5.90); RED CELL DISTRIBUTION WIDTH 15.3 % (11.5-14.5); WHITE BLOOD COUNT 9.1 K/uL (4.8-10.8)
[2017-01-19 07:54] LABS: ALBUMIN 3.6 g/dL (3.5-5.0)
[2017-01-19 07:57] LABS: AST/SGOT 28 U/L (17-59); GFR NON-AFRICAN AMERICAN > 60
[2017-01-19 07:58] LABS: ALB/GLOB RATIO 0.8 (1.0-2.1); ALT/SGPT 57 U/L (21-72); BLOOD UREA NITROGEN 18 mg/dL (9-20); CALCIUM 8.4 mg/dl (8.6-10.4)
[2017-01-19] MEDS: Enoxaparin 40 mg Syringe SC SCH (10:38)
[2017-01-19] MEDS: levETIRAcetam 100 mg/ml (5ml) Oral Syringe PEG SCH ×2 (10:40→18:00)
--- NOTE | 2017-01-19 14:00 | SPECPROC ---
PROCEDURE: < Date of procedure: 01/06/2017 Procedure: 1. Replacement of gastrostomy tube under fluoroscopic guidance, CPT 28893 Medications: The patient received IV sedation administered by the anesthesiologist HISTORY: Dysphagia, displaced Gastrostomy tube TECHNIQUE: Following informed consent, the patient placed supine on the interventional table gastrostomy site was prepped and draped in the usual sterile fashion. An angled catheter was advanced through the stoma and into bowel. The position was confirmed with contrast. A guidewire was advanced through the catheter which was then exchanged for a new 18 Croatian gastrostomy tube. The gastrostomy tube balloon was inflated with sterile water a small amount of contrast. Positioned gastrostomy tube was confirmed with contrast injection. Tube was secured to the patient and a dressing applied. IMPRESSION: Replacement of 18 Croatian gastrostomy tube.
--- NOTE | 2017-01-19 17:38 | CP.PCM.PN ---
<Judith Forrester - Last Filed: 01/19/17 17:35> Subjective - Date & Time of Evaluation Date of Evaluation: 01/19/17 Time of Evaluation: 09:20 - Subjective Subjective: PGY1 on Dr Ying's service: Patient seen and examined. Patient in no acute distress, no events overnight per nursing. Objective - Vital Signs/Intake and Output Vital Signs (last 24 hours): Temp Pulse Resp BP Pulse Ox 98 F 60 20 111/72 98 01/19/17 07:57 01/19/17 07:57 01/19/17 07:57 01/19/17 07:57 01/19/17 07:57 Intake and Output: 01/19/17 01/19/17 06:59 18:59 Intake Total 580 1760 Output Total 400 1100 Balance 180 660 - Medications Medications: Current Medications Aspirin (Aspirin Chewable) 81 mg PEG DAILY [facility] Last Admin: 01/19/17 10:39 Dose: 81 mg Bethanechol Chloride (Urecholine) 50 mg PEG TID [facility] Last Admin: 01/19/17 14:23 Dose: 50 mg Carvedilol (Coreg) 3.125 mg PEG BID [facility] Last Admin: 01/19/17 10:39 Dose: 3.125 mg Clopidogrel Bisulfate (Plavix) 75 mg PO DAILY [facility] Last Admin: 01/19/17 10:39 Dose: 75 mg Emollient Ointment (Vaseline Oint) 5 gm TOP BID PRN PRN Reason: Dry skin Last Admin: 01/15/17 11:04 Dose: 5 gm Enoxaparin Sodium (Lovenox) 40 mg SC DAILY [facility] Last Admin: 01/19/17 10:38 Dose: 40 mg Famotidine (Pepcid) 20 mg PEG BID [facility] Last Admin: 01/19/17 10:39 Dose: 20 mg Finasteride (Proscar) 5 mg PEG DAILY [facility] Last Admin: 01/19/17 10:40 Dose: 5 mg Guaifenesin (Robitussin) 200 mg PO Q4H PRN PRN Reason: Cough and congestion Last Admin: 01/18/17 11:30 Dose: 200 mg Levetiracetam (Keppra) 500 mg PEG BID [facility] Last Admin: 01/19/17 10:40 Dose: 500 mg Tamsulosin HCl (Flomax) 0.4 mg PO DAILY [facility] Last Admin: 01/19/17 10:39 Dose: 0.4 mg - Labs Labs: 01/19/17 07:00 01/19/17 07:00 PT 10.6 SECONDS (9.7-12.2) 11/24/15 14:10 INR 1.0 11/24/15 14:10 APTT 25 SECONDS (21-34) 11/24/15 14:10 - Constitutional Appears: No Acute Distress, Chronically Ill - Head Exam Head Exam: ATRAUMATIC, NORMOCEPHALIC - Eye Exam Eye Exam: EOMI - ENT Exam ENT Exam: Mucous Membranes Moist - Neck Exam Additional comments: trach collar in place - Respiratory Exam Respiratory Exam: Clear to Ausculation Bilateral - Cardiovascular Exam Cardiovascular Exam: +S1, +S2 - GI/Abdominal Exam GI & Abdominal Exam: Soft, Normal Bowel Sounds Additional comments: PEG in place, tube feeds running - Exam Additional comments: condom catheter in place - Extremities Exam Extremities Exam: absent: Pedal Edema Additional comments: SCDs and heel protectors in place - Neurological Exam Neurological Exam: Awake - Skin Skin Exam: Dry, Warm Assessment and Plan - Assessment and Plan (Free Text) Assessment: PEG tube dysfunction- resolved IR placed new PEG 01/06, functioning appropriately UTI- resolved CBI discontinued 01/08, baker catheter removed, patient with condom catheter- voiding yellow/ slightly cloudy urine, will continue to monitor 12/30- Triple lumen Baker in place for irrigation, added neosporin to CBI Urine Culture 12/03/16 - Positive Kleb pneumo, sensitive to cipro - resolved. Off antibiotics now Sacral Ulcers Stage I ulcer present on sacrum; area frequently alternates between Stage I and healed ulcer. Continue frequent turning, protective ointment and skin checks. 01/07- wound care saw patient, air mattress adjusted and protective ointment applied to sacrum Urinary Retention Flomax 0.4mg PEG daily Proscar 5mg PEG daily continue Bethanecol 50mg PEG TID- started after persistent retention and found to be effective. monitor I's and O's check bladder scan for residual urine three times weekly Respiratory failure trach collar in place - normal resp pattern, thick secretions 01/12- starting mucinex for secretions CAD (coronary artery disease) s/p cardiac stents on 06/13/15 ASA 81mg via PEG daily Coreg 3.125mg PEG BID plavix 75mg PO daily Seizures Keppra 500mg PEG BID for seizure prophylaxis Lower extremity edema Lasix via PEG as needed. 01/05 mild edema- given 40mg via PEG Hypernatremia- resolved increase free water flushes to 400cc q8h labs 01/11 Na of 145 labs 01/19 sodium 142 Prophylactic measure Pepcid 20 mg PEG BID Lovenox 40mg SC daily SCDs and offloading boots continue to turn and reposition q2h Continue to monitor medication administrations and clinical presentation weekly labs- will be drawn 01/19 <Donnell Ying - Last Filed: 01/19/17 18:03> Objective - Vital Signs/Intake and Output Vital Signs (last 24 hours): Temp Pulse Resp BP Pulse Ox 98 F 60 20 111/72 98 01/19/17 07:57 01/19/17 07:57 01/19/17 07:57 01/19/17 07:57 01/19/17 07:57 Intake and Output: 01/19/17 01/19/17 06:59 18:59 Intake Total 580 1760 Output Total 400 1100 Balance 180 660 - Medications Medications: Current Medications Aspirin (Aspirin Chewable) 81 mg PEG DAILY [facility] Last Admin: 01/19/17 10:39 Dose: 81 mg Bethanechol Chloride (Urecholine) 50 mg PEG TID [facility] Last Admin: 01/19/17 18:00 Dose: 50 mg Carvedilol (Coreg) 3.125 mg PEG BID [facility] Last Admin: 01/19/17 18:01 Dose: 3.125 mg Clopidogrel Bisulfate (Plavix) 75 mg PO DAILY [facility] Last Admin: 01/19/17 10:39 Dose: 75 mg Emollient Ointment (Vaseline Oint) 5 gm TOP BID PRN PRN Reason: Dry skin Last Admin: 01/15/17 11:04 Dose: 5 gm Enoxaparin Sodium (Lovenox) 40 mg SC DAILY [facility] Last Admin: 01/19/17 10:38 Dose: 40 mg Famotidine (Pepcid) 20 mg PEG BID [facility] Last Admin: 01/19/17 18:00 Dose: 20 mg Finasteride (Proscar) 5 mg PEG DAILY [facility] Last Admin: 01/19/17 10:40 Dose: 5 mg Guaifenesin (Robitussin) 200 mg PO Q4H PRN PRN Reason: Cough and congestion Last Admin: 01/18/17 11:30 Dose: 200 mg Levetiracetam (Keppra) 500 mg PEG BID [facility] Last Admin: 01/19/17 18:00 Dose: 500 mg Tamsulosin HCl (Flomax) 0.4 mg PO DAILY [facility] Last Admin: 01/19/17 10:39 Dose: 0.4 mg - Labs Labs: 01/19/17 07:00 01/19/17 07:00 PT 10.6 SECONDS (9.7-12.2) 11/24/15 14:10 INR 1.0 11/24/15 14:10 APTT 25 SECONDS (21-34) 11/24/15 14:10 Attending/Attestation - Attestation I have personally seen and examined this patient.: Yes I have fully participated in the care of the patient.: Yes I have reviewed all pertinent clinical information, including history, physical exam and plan: Yes Notes (Text): 01/19/17 18:03 Patient was seen and examined at bedside with the resident No change in clinical condition Continue current management Awaiting placement
[2017-01-20] MEDS: Enoxaparin 40 mg Syringe SC SCH (10:46)
[2017-01-20] MEDS: levETIRAcetam 100 mg/ml (5ml) Oral Syringe PEG SCH ×2 (10:47→23:34)
--- NOTE | 2017-01-20 13:50 | CP.PCM.PN ---
<Judith Forrester - Last Filed: 01/20/17 13:44> Subjective - Date & Time of Evaluation Date of Evaluation: 01/20/17 Time of Evaluation: 07:55 - Subjective Subjective: PGY1 on Dr Ying's service: Patient seen and examined. Patient resting comfortably, in no acute distress. Patient 1650ml urine output. Objective - Vital Signs/Intake and Output Vital Signs (last 24 hours): Temp Pulse Resp BP Pulse Ox 98.6 F 63 20 104/67 98 01/20/17 08:32 01/20/17 08:32 01/20/17 08:32 01/20/17 08:32 01/20/17 08:32 Intake and Output: 01/20/17 01/20/17 06:59 18:59 Intake Total 1760 Output Total 550 Balance 1210 - Medications Medications: Current Medications Aspirin (Aspirin Chewable) 81 mg PEG DAILY [facility] Last Admin: 01/20/17 10:46 Dose: 81 mg Bethanechol Chloride (Urecholine) 50 mg PEG TID [facility] Last Admin: 01/20/17 13:32 Dose: 50 mg Carvedilol (Coreg) 3.125 mg PEG BID [facility] Last Admin: 01/20/17 10:47 Dose: 3.125 mg Clopidogrel Bisulfate (Plavix) 75 mg PO DAILY [facility] Last Admin: 01/20/17 10:46 Dose: 75 mg Emollient Ointment (Vaseline Oint) 5 gm TOP BID PRN PRN Reason: Dry skin Last Admin: 01/15/17 11:04 Dose: 5 gm Enoxaparin Sodium (Lovenox) 40 mg SC DAILY [facility] Last Admin: 01/20/17 10:46 Dose: 40 mg Famotidine (Pepcid) 20 mg PEG BID [facility] Last Admin: 01/20/17 10:47 Dose: 20 mg Finasteride (Proscar) 5 mg PEG DAILY [facility] Last Admin: 01/20/17 10:47 Dose: 5 mg Guaifenesin (Robitussin) 200 mg PO Q4H PRN PRN Reason: Cough and congestion Last Admin: 01/18/17 11:30 Dose: 200 mg Levetiracetam (Keppra) 500 mg PEG BID [facility] Last Admin: 01/20/17 10:47 Dose: 500 mg Tamsulosin HCl (Flomax) 0.4 mg PO DAILY [facility] Last Admin: 01/20/17 10:46 Dose: 0.4 mg - Labs Labs: 01/19/17 07:00 01/19/17 07:00 PT 10.6 SECONDS (9.7-12.2) 11/24/15 14:10 INR 1.0 11/24/15 14:10 APTT 25 SECONDS (21-34) 11/24/15 14:10 - Constitutional Appears: Non-toxic, No Acute Distress, Chronically Ill - Head Exam Head Exam: ATRAUMATIC - Eye Exam Eye Exam: EOMI - ENT Exam ENT Exam: Mucous Membranes Moist - Neck Exam Additional comments: trach collar in place - Respiratory Exam Respiratory Exam: Clear to Ausculation Bilateral - Cardiovascular Exam Cardiovascular Exam: +S1, +S2 - GI/Abdominal Exam GI & Abdominal Exam: Soft, Normal Bowel Sounds Additional comments: PEG in place with tube feeds running - Exam Additional comments: condom catheter in place with yellow urine, slightly cloudy - Extremities Exam Extremities Exam: absent: Pedal Edema Additional comments: SCDs and heel protectors in place - Neurological Exam Neurological Exam: Awake - Skin Skin Exam: Dry, Warm Assessment and Plan - Assessment and Plan (Free Text) Assessment: PEG tube dysfunction- resolved IR placed new PEG 01/06, functioning appropriately UTI- resolved CBI discontinued 01/08, baker catheter removed, patient with condom catheter- voiding yellow/ slightly cloudy urine, will continue to monitor 12/30- Triple lumen Baker in place for irrigation, added neosporin to CBI Urine Culture 12/03/16 - Positive Kleb pneumo, sensitive to cipro - resolved. Off antibiotics now Sacral Ulcers Stage I ulcer present on sacrum; area frequently alternates between Stage I and healed ulcer. Continue frequent turning, protective ointment and skin checks. 01/07- wound care saw patient, air mattress adjusted and protective ointment applied to sacrum Urinary Retention Flomax 0.4mg PEG daily Proscar 5mg PEG daily continue Bethanecol 50mg PEG TID- started after persistent retention and found to be effective. monitor I's and O's check bladder scan for residual urine three times weekly last bladder scan done 01/18 with 50cc residual Respiratory failure trach collar in place - normal resp pattern, thick secretions 01/12- starting mucinex for secretions CAD (coronary artery disease) s/p cardiac stents on 06/13/15 ASA 81mg via PEG daily Coreg 3.125mg PEG BID plavix 75mg PO daily Seizures Keppra 500mg PEG BID for seizure prophylaxis Lower extremity edema Lasix via PEG as needed. 01/05 mild edema- given 40mg via PEG Hypernatremia- resolved increase free water flushes to 400cc q8h labs 01/11 Na of 145 labs 01/19 sodium 142 Prophylactic measure Pepcid 20 mg PEG BID Lovenox 40mg SC daily SCDs and offloading boots continue to turn and reposition q2h Continue to monitor medication administrations and clinical presentation weekly labs- will be drawn 01/19 <Donnell Ying - Last Filed: 01/20/17 14:52> Objective - Vital Signs/Intake and Output Vital Signs (last 24 hours): Temp Pulse Resp BP Pulse Ox 98.6 F 63 20 104/67 98 01/20/17 08:32 01/20/17 08:32 01/20/17 08:32 01/20/17 08:32 01/20/17 08:32 Intake and Output: 01/20/17 01/20/17 06:59 18:59 Intake Total 1760 880 Output Total 550 300 Balance 1210 580 - Medications Medications: Current Medications Aspirin (Aspirin Chewable) 81 mg PEG DAILY [facility] Last Admin: 01/20/17 10:46 Dose: 81 mg Bethanechol Chloride (Urecholine) 50 mg PEG TID [facility] Last Admin: 01/20/17 13:32 Dose: 50 mg Carvedilol (Coreg) 3.125 mg PEG BID [facility] Last Admin: 01/20/17 10:47 Dose: 3.125 mg Clopidogrel Bisulfate (Plavix) 75 mg PO DAILY [facility] Last Admin: 01/20/17 10:46 Dose: 75 mg Emollient Ointment (Vaseline Oint) 5 gm TOP BID PRN PRN Reason: Dry skin Last Admin: 01/15/17 11:04 Dose: 5 gm Enoxaparin Sodium (Lovenox) 40 mg SC DAILY [facility] Last Admin: 01/20/17 10:46 Dose: 40 mg Famotidine (Pepcid) 20 mg PEG BID [facility] Last Admin: 01/20/17 10:47 Dose: 20 mg Finasteride (Proscar) 5 mg PEG DAILY [facility] Last Admin: 01/20/17 10:47 Dose: 5 mg Guaifenesin (Robitussin) 200 mg PO Q4H PRN PRN Reason: Cough and congestion Last Admin: 01/18/17 11:30 Dose: 200 mg Levetiracetam (Keppra) 500 mg PEG BID [facility] Last Admin: 01/20/17 10:47 Dose: 500 mg Tamsulosin HCl (Flomax) 0.4 mg PO DAILY [facility] Last Admin: 01/20/17 10:46 Dose: 0.4 mg - Labs Labs: 01/19/17 07:00 01/19/17 07:00 PT 10.6 SECONDS (9.7-12.2) 11/24/15 14:10 INR 1.0 11/24/15 14:10 APTT 25 SECONDS (21-34) 11/24/15 14:10 Attending/Attestation - Attestation I have personally seen and examined this patient.: Yes I have fully participated in the care of the patient.: Yes I have reviewed all pertinent clinical information, including history, physical exam and plan: Yes Notes (Text): 01/20/17 14:51 Patient was seen and examined at bedside with the resident There is no change in clinical condition We will continue current medication and current management
[2017-01-21] MEDS: Enoxaparin 40 mg Syringe SC SCH (11:17)
[2017-01-21] MEDS: levETIRAcetam 100 mg/ml (5ml) Oral Syringe PEG SCH ×2 (11:18→17:43)
--- NOTE | 2017-01-21 11:59 | CP.PCM.PN ---
<Judith Forrester - Last Filed: 01/21/17 12:29> Subjective - Date & Time of Evaluation Date of Evaluation: 01/21/17 Time of Evaluation: 07:20 - Subjective Subjective: PGY1 on Dr. Ying's service: Patient seen and examined. Patient resting comfortably, no acute distress. Patient with mild edema noted in right upper extremity and lower extremities- will give lasix today. Objective - Vital Signs/Intake and Output Vital Signs (last 24 hours): Temp Pulse Resp BP Pulse Ox 98.3 F 68 19 121/81 100 01/21/17 08:07 01/21/17 08:07 01/21/17 08:07 01/21/17 08:07 01/21/17 08:07 Intake and Output: 01/21/17 01/21/17 06:59 18:59 Intake Total 1760 Output Total 1400 Balance 360 - Medications Medications: Current Medications Aspirin (Aspirin Chewable) 81 mg PEG DAILY [facility] Last Admin: 01/21/17 11:18 Dose: 81 mg Bethanechol Chloride (Urecholine) 50 mg PEG TID [facility] Last Admin: 01/21/17 11:18 Dose: 50 mg Carvedilol (Coreg) 3.125 mg PEG BID [facility] Last Admin: 01/21/17 11:18 Dose: 3.125 mg Clopidogrel Bisulfate (Plavix) 75 mg PO DAILY [facility] Last Admin: 01/21/17 11:18 Dose: 75 mg Emollient Ointment (Vaseline Oint) 5 gm TOP BID PRN PRN Reason: Dry skin Last Admin: 01/15/17 11:04 Dose: 5 gm Enoxaparin Sodium (Lovenox) 40 mg SC DAILY [facility] Last Admin: 01/21/17 11:17 Dose: 40 mg Famotidine (Pepcid) 20 mg PEG BID [facility] Last Admin: 01/21/17 11:18 Dose: 20 mg Finasteride (Proscar) 5 mg PEG DAILY [facility] Last Admin: 01/21/17 11:18 Dose: 5 mg Guaifenesin (Robitussin) 200 mg PO Q4H PRN PRN Reason: Cough and congestion Last Admin: 01/18/17 11:30 Dose: 200 mg Levetiracetam (Keppra) 500 mg PEG BID [facility] Last Admin: 01/21/17 11:18 Dose: 500 mg Tamsulosin HCl (Flomax) 0.4 mg PO DAILY [facility] Last Admin: 01/21/17 11:18 Dose: 0.4 mg - Labs Labs: 01/19/17 07:00 01/19/17 07:00 PT 10.6 SECONDS (9.7-12.2) 11/24/15 14:10 INR 1.0 11/24/15 14:10 APTT 25 SECONDS (21-34) 11/24/15 14:10 - Constitutional Appears: No Acute Distress, Chronically Ill - Head Exam Head Exam: ATRAUMATIC - Eye Exam Eye Exam: EOMI - ENT Exam Additional comments: trach collar in place with thick secretions - Respiratory Exam Respiratory Exam: Clear to Ausculation Bilateral - Cardiovascular Exam Cardiovascular Exam: +S1, +S2 - GI/Abdominal Exam GI & Abdominal Exam: Soft, Normal Bowel Sounds Additional comments: PEG in place with tube feeds running - Exam Additional comments: condom catheter on - Extremities Exam Additional comments: mild edema in right upper and bilateral lower extremities - Neurological Exam Neurological Exam: Awake - Skin Skin Exam: Dry, Warm Assessment and Plan - Assessment and Plan (Free Text) Assessment: Assessment: PEG tube dysfunction- resolved IR placed new PEG 01/06, functioning appropriately UTI- resolved CBI discontinued 01/08, baker catheter removed, patient with condom catheter- voiding yellow/ slightly cloudy urine, will continue to monitor 12/30- Triple lumen Baker in place for irrigation, added neosporin to CBI Urine Culture 12/03/16 - Positive Kleb pneumo, sensitive to cipro - resolved. Off antibiotics now Sacral Ulcers Stage I ulcer present on sacrum; area frequently alternates between Stage I and healed ulcer. Continue frequent turning, protective ointment and skin checks. 01/07- wound care saw patient, air mattress adjusted and protective ointment applied to sacrum Urinary Retention Flomax 0.4mg PEG daily Proscar 5mg PEG daily continue Bethanecol 50mg PEG TID- started after persistent retention and found to be effective. monitor I's and O's check bladder scan for residual urine three times weekly last bladder scan done 01/18 with 50cc residual Respiratory failure trach collar in place - normal resp pattern, thick secretions 01/12- starting mucinex for secretions CAD (coronary artery disease) s/p cardiac stents on 06/13/15 ASA 81mg via PEG daily Coreg 3.125mg PEG BID plavix 75mg PO daily Seizures Keppra 500mg PEG BID for seizure prophylaxis Lower extremity edema Lasix via PEG as needed. 01/21- mild edema- giving 40mg via PEG 01/05 mild edema- given 40mg via PEG Hypernatremia- resolved increase free water flushes to 400cc q8h labs 01/11 Na of 145 labs 01/19 sodium 142 Prophylactic measure Pepcid 20 mg PEG BID Lovenox 40mg SC daily SCDs and offloading boots continue to turn and reposition q2h Continue to monitor medication administrations and clinical presentation weekly labs- last drawn 01/19 <Donnell Ying - Last Filed: 01/21/17 15:21> Objective - Vital Signs/Intake and Output Vital Signs (last 24 hours): Temp Pulse Resp BP Pulse Ox 98.3 F 68 19 120/80 100 01/21/17 08:07 01/21/17 08:07 01/21/17 08:07 01/21/17 11:54 01/21/17 08:07 Intake and Output: 01/21/17 01/21/17 06:59 18:59 Intake Total 1760 Output Total 1400 600 Balance 360 -600 - Medications Medications: Current Medications Aspirin (Aspirin Chewable) 81 mg PEG DAILY [facility] Last Admin: 01/21/17 11:18 Dose: 81 mg Bethanechol Chloride (Urecholine) 50 mg PEG TID [facility] Last Admin: 01/21/17 14:50 Dose: 50 mg Carvedilol (Coreg) 3.125 mg PEG BID [facility] Last Admin: 01/21/17 11:18 Dose: 3.125 mg Clopidogrel Bisulfate (Plavix) 75 mg PO DAILY [facility] Last Admin: 01/21/17 11:18 Dose: 75 mg Emollient Ointment (Vaseline Oint) 5 gm TOP BID PRN PRN Reason: Dry skin Last Admin: 01/15/17 11:04 Dose: 5 gm Enoxaparin Sodium (Lovenox) 40 mg SC DAILY [facility] Last Admin: 01/21/17 11:17 Dose: 40 mg Famotidine (Pepcid) 20 mg PEG BID [facility] Last Admin: 01/21/17 11:18 Dose: 20 mg Finasteride (Proscar) 5 mg PEG DAILY [facility] Last Admin: 01/21/17 11:18 Dose: 5 mg Guaifenesin (Robitussin) 200 mg PO Q4H PRN PRN Reason: Cough and congestion Last Admin: 01/18/17 11:30 Dose: 200 mg Levetiracetam (Keppra) 500 mg PEG BID [facility] Last Admin: 01/21/17 11:18 Dose: 500 mg Tamsulosin HCl (Flomax) 0.4 mg PO DAILY [facility] Last Admin: 01/21/17 11:18 Dose: 0.4 mg - Labs Labs: 01/19/17 07:00 01/19/17 07:00 PT 10.6 SECONDS (9.7-12.2) 11/24/15 14:10 INR 1.0 11/24/15 14:10 APTT 25 SECONDS (21-34) 11/24/15 14:10 Attending/Attestation - Attestation I have personally seen and examined this patient.: Yes I have fully participated in the care of the patient.: Yes I have reviewed all pertinent clinical information, including history, physical exam and plan: Yes Notes (Text): 01/21/17 15:20 Patient was seen and examined at bedside There is no change in clinical condition Continue current management Discussed with the resident and I agree with the above history and physical and assessment/plan by the resident
[2017-01-22] MEDS: Enoxaparin 40 mg Syringe SC SCH (10:02)
[2017-01-22] MEDS: levETIRAcetam 100 mg/ml (5ml) Oral Syringe PEG SCH ×2 (10:03→18:29)
--- NOTE | 2017-01-22 13:49 | CP.PCM.PN ---
<Judith Forrester - Last Filed: 01/22/17 13:45> Subjective - Date & Time of Evaluation Date of Evaluation: 01/22/17 Time of Evaluation: 08:55 - Subjective Subjective: PGY1 on Dr Ying's service: Patient seen and examined. Patient in no acute distress, no events overnight per nursing. Patient noted to not have much urine collecting in bag- on examination patient noted to have catheter slipped off. Objective - Vital Signs/Intake and Output Vital Signs (last 24 hours): Temp Pulse Resp BP Pulse Ox 98.4 F 84 20 118/72 99 01/22/17 07:42 01/22/17 07:42 01/22/17 07:42 01/22/17 07:42 01/22/17 07:42 Intake and Output: 01/22/17 01/22/17 06:59 18:59 Intake Total 920 Output Total 2 Balance 918 - Medications Medications: Current Medications Aspirin (Aspirin Chewable) 81 mg PEG DAILY [facility] Last Admin: 01/22/17 10:02 Dose: 81 mg Bethanechol Chloride (Urecholine) 50 mg PEG TID [facility] Last Admin: 01/22/17 13:09 Dose: 50 mg Carvedilol (Coreg) 3.125 mg PEG BID [facility] Last Admin: 01/22/17 10:02 Dose: 3.125 mg Clopidogrel Bisulfate (Plavix) 75 mg PO DAILY [facility] Last Admin: 01/22/17 10:02 Dose: 75 mg Emollient Ointment (Vaseline Oint) 5 gm TOP BID PRN PRN Reason: Dry skin Last Admin: 01/15/17 11:04 Dose: 5 gm Enoxaparin Sodium (Lovenox) 40 mg SC DAILY [facility] Last Admin: 01/22/17 10:02 Dose: 40 mg Famotidine (Pepcid) 20 mg PEG BID [facility] Last Admin: 01/22/17 10:02 Dose: 20 mg Finasteride (Proscar) 5 mg PEG DAILY [facility] Last Admin: 01/22/17 10:03 Dose: 5 mg Guaifenesin (Robitussin) 200 mg PO Q4H PRN PRN Reason: Cough and congestion Last Admin: 01/18/17 11:30 Dose: 200 mg Levetiracetam (Keppra) 500 mg PEG BID [facility] Last Admin: 01/22/17 10:03 Dose: 500 mg Tamsulosin HCl (Flomax) 0.4 mg PO DAILY [facility] Last Admin: 01/22/17 10:02 Dose: 0.4 mg - Labs Labs: 01/19/17 07:00 01/19/17 07:00 PT 10.6 SECONDS (9.7-12.2) 11/24/15 14:10 INR 1.0 11/24/15 14:10 APTT 25 SECONDS (21-34) 11/24/15 14:10 - Constitutional Appears: No Acute Distress, Chronically Ill - Head Exam Head Exam: ATRAUMATIC - Eye Exam Eye Exam: EOMI - Neck Exam Additional comments: trach collar in place - Respiratory Exam Respiratory Exam: Clear to Ausculation Bilateral. absent: Rales, Rhonchi, Wheezes - Cardiovascular Exam Cardiovascular Exam: +S1, +S2 - GI/Abdominal Exam GI & Abdominal Exam: Soft, Normal Bowel Sounds Additional comments: PEG tube in place, tube feedings running - Exam Additional comments: condom catheter not in place - Extremities Exam Extremities Exam: absent: Pedal Edema Additional comments: SCDs, heel protectors in place - Neurological Exam Neurological Exam: Awake - Skin Skin Exam: Dry, Warm Assessment and Plan - Assessment and Plan (Free Text) Assessment: Anoxic brain injury s/p cardiac arrest in 05/2015 no acute changes, continue current management PEG tube dysfunction- resolved IR placed new PEG 01/06, functioning appropriately UTI- resolved CBI discontinued 01/08, baker catheter removed, patient with condom catheter- voiding yellow/ slightly cloudy urine, will continue to monitor 12/30- Triple lumen Baker in place for irrigation, added neosporin to CBI Urine Culture 12/03/16 - Positive Kleb pneumo, sensitive to cipro - resolved. Off antibiotics now Sacral Ulcers Stage I ulcer present on sacrum; area frequently alternates between Stage I and healed ulcer. Continue frequent turning, protective ointment and skin checks. 01/07- wound care saw patient, air mattress adjusted and protective ointment applied to sacrum Urinary Retention Flomax 0.4mg PEG daily Proscar 5mg PEG daily continue Bethanecol 50mg PEG TID- started after persistent retention and found to be effective. monitor I's and O's check bladder scan for residual urine three times weekly last bladder scan done 01/18 with 50cc residual Respiratory failure trach collar in place - normal resp pattern, thick secretions 01/12- starting mucinex for secretions CAD (coronary artery disease) s/p cardiac stents on 06/13/15 ASA 81mg via PEG daily Coreg 3.125mg PEG BID plavix 75mg PO daily Seizures Keppra 500mg PEG BID for seizure prophylaxis Lower extremity edema Lasix via PEG as needed. 01/22- edema resolved 01/21- mild edema- giving 40mg via PEG 01/05 mild edema- given 40mg via PEG Hypernatremia- resolved increase free water flushes to 400cc q8h labs 01/11 Na of 145 labs 01/19 sodium 142 Prophylactic measure Pepcid 20 mg PEG BID Lovenox 40mg SC daily SCDs and offloading boots continue to turn and reposition q2h Continue to monitor medication administrations and clinical presentation weekly labs- last drawn 01/19 <Donnell Ying - Last Filed: 01/22/17 14:38> Objective - Vital Signs/Intake and Output Vital Signs (last 24 hours): Temp Pulse Resp BP Pulse Ox 98.4 F 84 20 118/72 99 01/22/17 07:42 01/22/17 07:42 01/22/17 07:42 01/22/17 07:42 01/22/17 07:42 Intake and Output: 01/22/17 01/22/17 06:59 18:59 Intake Total 920 880 Output Total 2 Balance 918 880 - Medications Medications: Current Medications Aspirin (Aspirin Chewable) 81 mg PEG DAILY [facility] Last Admin: 01/22/17 10:02 Dose: 81 mg Bethanechol Chloride (Urecholine) 50 mg PEG TID [facility] Last Admin: 01/22/17 13:09 Dose: 50 mg Carvedilol (Coreg) 3.125 mg PEG BID [facility] Last Admin: 01/22/17 10:02 Dose: 3.125 mg Clopidogrel Bisulfate (Plavix) 75 mg PO DAILY [facility] Last Admin: 01/22/17 10:02 Dose: 75 mg Emollient Ointment (Vaseline Oint) 5 gm TOP BID PRN PRN Reason: Dry skin Last Admin: 01/15/17 11:04 Dose: 5 gm Enoxaparin Sodium (Lovenox) 40 mg SC DAILY [facility] Last Admin: 01/22/17 10:02 Dose: 40 mg Famotidine (Pepcid) 20 mg PEG BID [facility] Last Admin: 01/22/17 10:02 Dose: 20 mg Finasteride (Proscar) 5 mg PEG DAILY [facility] Last Admin: 01/22/17 10:03 Dose: 5 mg Guaifenesin (Robitussin) 200 mg PO Q4H PRN PRN Reason: Cough and congestion Last Admin: 01/18/17 11:30 Dose: 200 mg Levetiracetam (Keppra) 500 mg PEG BID [facility] Last Admin: 01/22/17 10:03 Dose: 500 mg Tamsulosin HCl (Flomax) 0.4 mg PO DAILY [facility] Last Admin: 01/22/17 10:02 Dose: 0.4 mg - Labs Labs: 01/19/17 07:00 01/19/17 07:00 PT 10.6 SECONDS (9.7-12.2) 11/24/15 14:10 INR 1.0 11/24/15 14:10 APTT 25 SECONDS (21-34) 11/24/15 14:10 Attending/Attestation - Attestation I have personally seen and examined this patient.: Yes I have fully participated in the care of the patient.: Yes I have reviewed all pertinent clinical information, including history, physical exam and plan: Yes Notes (Text): 01/22/17 14:37 Patient was seen and examined at bedside with the resident This note change in clinical condition Continue current management
[2017-01-23] MEDS: levETIRAcetam 100 mg/ml (5ml) Oral Syringe PEG SCH ×2 (09:49→17:44)
[2017-01-23] MEDS: Petrolatum Oint Foilpak (5 gm) TOP PRN (09:50)
[2017-01-23] MEDS: Enoxaparin 40 mg Syringe SC SCH (09:50)
--- NOTE | 2017-01-23 18:04 | CP.PCM.PN ---
Addendum entered and electronically signed by Mariella Wagner DO 01/23/17 18: 15: Last bladder scan done 01/22/17 last night with 138 cc of residual urine. Original Note: <Mariella Wagner - Last Filed: 01/23/17 18:02> Subjective - Date & Time of Evaluation Date of Evaluation: 01/23/17 Time of Evaluation: 07:40 - Subjective Subjective: Medicine Progress Note- Dr. Ying's Service: Patient seen and examined at bedside this morning. Patient was resting in bed with wedge under left pelvis to offload pressure. Patient unable to provide ROS due to anoxic encephalopathy. No acute events overnight. Objective - Vital Signs/Intake and Output Vital Signs (last 24 hours): Temp Pulse Resp BP Pulse Ox 98.0 F 88 20 134/84 100 01/23/17 14:00 01/23/17 17:33 01/23/17 14:00 01/23/17 14:00 01/23/17 14:00 Intake and Output: 01/23/17 01/23/17 06:59 18:59 Intake Total 580 1180 Output Total 800 Balance 580 380 - Medications Medications: Current Medications Aspirin (Aspirin Chewable) 81 mg PEG DAILY [facility] Last Admin: 01/23/17 09:50 Dose: 81 mg Bethanechol Chloride (Urecholine) 50 mg PEG TID [facility] Last Admin: 01/23/17 17:45 Dose: 50 mg Carvedilol (Coreg) 3.125 mg PEG BID [facility] Last Admin: 01/23/17 17:45 Dose: 3.125 mg Clopidogrel Bisulfate (Plavix) 75 mg PO DAILY [facility] Last Admin: 01/23/17 09:50 Dose: 75 mg Emollient Ointment (Vaseline Oint) 5 gm TOP BID PRN PRN Reason: Dry skin Last Admin: 01/23/17 09:50 Dose: 5 gm Enoxaparin Sodium (Lovenox) 40 mg SC DAILY [facility] Last Admin: 01/23/17 09:50 Dose: 40 mg Famotidine (Pepcid) 20 mg PEG BID [facility] Last Admin: 01/23/17 17:45 Dose: 20 mg Finasteride (Proscar) 5 mg PEG DAILY [facility] Last Admin: 01/23/17 09:50 Dose: 5 mg Guaifenesin (Robitussin) 200 mg PO Q4H PRN PRN Reason: Cough and congestion Last Admin: 01/18/17 11:30 Dose: 200 mg Levetiracetam (Keppra) 500 mg PEG BID [facility] Last Admin: 01/23/17 17:44 Dose: 500 mg Tamsulosin HCl (Flomax) 0.4 mg PO DAILY [facility] Last Admin: 01/23/17 09:50 Dose: 0.4 mg - Labs Labs: 01/19/17 07:00 01/19/17 07:00 PT 10.6 SECONDS (9.7-12.2) 11/24/15 14:10 INR 1.0 11/24/15 14:10 APTT 25 SECONDS (21-34) 11/24/15 14:10 - Constitutional Appears: No Acute Distress - Head Exam Head Exam: ATRAUMATIC, NORMAL INSPECTION - ENT Exam ENT Exam: Mucous Membranes Moist - Neck Exam Neck Exam: Normal Inspection Additional comments: +trach collar in place - Respiratory Exam Respiratory Exam: NORMAL BREATHING PATTERN. absent: Accessory Muscle Use, Rales , Wheezes - Cardiovascular Exam Cardiovascular Exam: REGULAR RHYTHM, +S1, +S2 - GI/Abdominal Exam GI & Abdominal Exam: Soft Additional comments: PEG tube in place - Extremities Exam Extremities Exam: Normal Inspection Additional comments: Air boots and SCDs in place - Neurological Exam Neurological Exam: Altered, Awake - Skin Skin Exam: Dry, Normal Color, Warm Assessment and Plan - Assessment and Plan (Free Text) Assessment: Anoxic brain injury s/p cardiac arrest in 05/2015 no acute changes, continue current management PEG tube dysfunction- resolved IR placed new PEG 01/06, functioning appropriately UTI- resolved CBI discontinued 01/08, yoo catheter removed, patient with condom catheter- voiding yellow/ slightly cloudy urine, will continue to monitor 12/30- Triple lumen Yoo in place for irrigation, added neosporin to CBI Urine Culture 12/03/16 - Positive Kleb pneumo, sensitive to cipro - resolved. Off antibiotics now Sacral Ulcers Stage I ulcer present on sacrum; area frequently alternates between Stage I and healed ulcer. Continue frequent turning, protective ointment and skin checks. 01/07- wound care saw patient, air mattress adjusted and protective ointment applied to sacrum Urinary Retention Flomax 0.4mg PEG daily Proscar 5mg PEG daily continue Bethanecol 50mg PEG TID- started after persistent retention and found to be effective. monitor I's and O's check bladder scan for residual urine three times weekly Last bladder scan done 01/18 with 50cc residual Respiratory failure trach collar in place - normal resp pattern, thick secretions 01/12- starting mucinex for secretions CAD (coronary artery disease) s/p cardiac stents on 06/13/15 ASA 81mg via PEG daily Coreg 3.125mg PEG BID Plavix 75mg PO daily Seizures Keppra 500mg PEG BID for seizure prophylaxis Lower extremity edema Lasix via PEG as needed. 01/22- edema resolved 01/21- mild edema- giving 40mg via PEG 01/05 mild edema- given 40mg via PEG Hypernatremia- resolved increase free water flushes to 400cc q8h labs 01/11 Na of 145 labs 01/19 sodium 142 f/u labs 01/26/17 Prophylactic measure Pepcid 20 mg PEG BID Lovenox 40mg SC daily SCDs and offloading boots continue to turn and reposition q2h Continue to monitor medication administrations and clinical presentation weekly labs- last drawn 01/19 <Donnell Ying - Last Filed: 01/23/17 18:45> Objective - Vital Signs/Intake and Output Vital Signs (last 24 hours): Temp Pulse Resp BP Pulse Ox 98.0 F 88 20 134/84 100 01/23/17 14:00 01/23/17 17:33 01/23/17 14:00 01/23/17 14:00 01/23/17 14:00 Intake and Output: 01/23/17 01/23/17 06:59 18:59 Intake Total 580 1180 Output Total 800 Balance 580 380 - Medications Medications: Current Medications Aspirin (Aspirin Chewable) 81 mg PEG DAILY [facility] Last Admin: 01/23/17 09:50 Dose: 81 mg Bethanechol Chloride (Urecholine) 50 mg PEG TID [facility] Last Admin: 01/23/17 17:45 Dose: 50 mg Carvedilol (Coreg) 3.125 mg PEG BID [facility] Last Admin: 01/23/17 17:45 Dose: 3.125 mg Clopidogrel Bisulfate (Plavix) 75 mg PO DAILY [facility] Last Admin: 01/23/17 09:50 Dose: 75 mg Emollient Ointment (Vaseline Oint) 5 gm TOP BID PRN PRN Reason: Dry skin Last Admin: 01/23/17 09:50 Dose: 5 gm Enoxaparin Sodium (Lovenox) 40 mg SC DAILY [facility] Last Admin: 01/23/17 09:50 Dose: 40 mg Famotidine (Pepcid) 20 mg PEG BID [facility] Last Admin: 01/23/17 17:45 Dose: 20 mg Finasteride (Proscar) 5 mg PEG DAILY [facility] Last Admin: 01/23/17 09:50 Dose: 5 mg Guaifenesin (Robitussin) 200 mg PO Q4H PRN PRN Reason: Cough and congestion Last Admin: 01/18/17 11:30 Dose: 200 mg Levetiracetam (Keppra) 500 mg PEG BID [facility] Last Admin: 01/23/17 17:44 Dose: 500 mg Tamsulosin HCl (Flomax) 0.4 mg PO DAILY [facility] Last Admin: 01/23/17 09:50 Dose: 0.4 mg - Labs Labs: 01/19/17 07:00 01/19/17 07:00 PT 10.6 SECONDS (9.7-12.2) 11/24/15 14:10 INR 1.0 11/24/15 14:10 APTT 25 SECONDS (21-34) 11/24/15 14:10 Attending/Attestation - Attestation I have personally seen and examined this patient.: Yes I have fully participated in the care of the patient.: Yes I have reviewed all pertinent clinical information, including history, physical exam and plan: Yes Notes (Text): 01/23/17 18:45 Patient was seen and examined at bedside with the resident There's no change in clinical condition Continue current management
--- NOTE | 2017-01-24 06:46 | CP.PCM.PN ---
<Thomas Aden - Last Filed: 01/24/17 06:44> Subjective - Date & Time of Evaluation Date of Evaluation: 01/24/17 Time of Evaluation: 06:45 - Subjective Subjective: Patient is unable to participate in the subjective history taking portion of exam Objective - Vital Signs/Intake and Output Vital Signs (last 24 hours): Temp Pulse Resp BP Pulse Ox 97.6 F 80 20 120/77 99 01/23/17 23:30 01/23/17 23:30 01/23/17 23:30 01/23/17 23:30 01/23/17 23:30 Intake and Output: 01/23/17 01/24/17 18:59 06:59 Intake Total 1180 1460 Output Total 800 450 Balance 380 1010 - Medications Medications: Current Medications Aspirin (Aspirin Chewable) 81 mg PEG DAILY [facility] Last Admin: 01/23/17 09:50 Dose: 81 mg Bethanechol Chloride (Urecholine) 50 mg PEG TID [facility] Last Admin: 01/23/17 17:45 Dose: 50 mg Carvedilol (Coreg) 3.125 mg PEG BID [facility] Last Admin: 01/23/17 17:45 Dose: 3.125 mg Clopidogrel Bisulfate (Plavix) 75 mg PO DAILY [facility] Last Admin: 01/23/17 09:50 Dose: 75 mg Emollient Ointment (Vaseline Oint) 5 gm TOP BID PRN PRN Reason: Dry skin Last Admin: 01/23/17 09:50 Dose: 5 gm Enoxaparin Sodium (Lovenox) 40 mg SC DAILY [facility] Last Admin: 01/23/17 09:50 Dose: 40 mg Famotidine (Pepcid) 20 mg PEG BID [facility] Last Admin: 01/23/17 17:45 Dose: 20 mg Finasteride (Proscar) 5 mg PEG DAILY [facility] Last Admin: 01/23/17 09:50 Dose: 5 mg Guaifenesin (Robitussin) 200 mg PO Q4H PRN PRN Reason: Cough and congestion Last Admin: 01/18/17 11:30 Dose: 200 mg Levetiracetam (Keppra) 500 mg PEG BID [facility] Last Admin: 01/23/17 17:44 Dose: 500 mg Tamsulosin HCl (Flomax) 0.4 mg PO DAILY [facility] Last Admin: 01/23/17 09:50 Dose: 0.4 mg - Labs Labs: 01/19/17 07:00 01/19/17 07:00 PT 10.6 SECONDS (9.7-12.2) 11/24/15 14:10 INR 1.0 11/24/15 14:10 APTT 25 SECONDS (21-34) 11/24/15 14:10 Assessment and Plan - Assessment and Plan (Free Text) Assessment: - Constitutional Appears: No Acute Distress - Head Exam Head Exam: ATRAUMATIC, NORMAL INSPECTION - ENT Exam ENT Exam: Mucous Membranes Moist - Neck Exam Neck Exam: Normal Inspection Additional comments: +trach collar in place - Respiratory Exam Respiratory Exam: NORMAL BREATHING PATTERN. absent: Accessory Muscle Use, Rales , Wheezes - Cardiovascular Exam Cardiovascular Exam: REGULAR RHYTHM, +S1, +S2 - GI/Abdominal Exam GI & Abdominal Exam: Soft Additional comments: PEG tube in place - Extremities Exam Extremities Exam: Normal Inspection Additional comments: Air boots and SCDs in place - Neurological Exam Neurological Exam: Altered, Awake - Skin Skin Exam: Dry, Normal Color, Warm Assessment and Plan - Assessment and Plan (Free Text) Assessment: Anoxic brain injury s/p cardiac arrest in 05/2015 no acute changes, continue current management PEG tube dysfunction- resolved IR placed new PEG 01/06, functioning appropriately UTI- resolved CBI discontinued 01/08, baker catheter removed, patient with condom catheter- voiding yellow/ slightly cloudy urine, will continue to monitor 12/30- Triple lumen Baker in place for irrigation, added neosporin to CBI Urine Culture 12/03/16 - Positive Kleb pneumo, sensitive to cipro - resolved. Off antibiotics now Sacral Ulcers Stage I ulcer present on sacrum; area frequently alternates between Stage I and healed ulcer. Continue frequent turning, protective ointment and skin checks. 01/07- wound care saw patient, air mattress adjusted and protective ointment applied to sacrum Urinary Retention Flomax 0.4mg PEG daily Proscar 5mg PEG daily continue Bethanecol 50mg PEG TID- started after persistent retention and found to be effective. monitor I's and O's check bladder scan for residual urine three times weekly Last bladder scan done 01/18 with 50cc residual Respiratory failure trach collar in place - normal resp pattern, thick secretions 01/12- starting mucinex for secretions CAD (coronary artery disease) s/p cardiac stents on 06/13/15 ASA 81mg via PEG daily Coreg 3.125mg PEG BID Plavix 75mg PO daily Seizures Keppra 500mg PEG BID for seizure prophylaxis Lower extremity edema Lasix via PEG as needed. 01/22- edema resolved 01/21- mild edema- giving 40mg via PEG 01/05 mild edema- given 40mg via PEG Hypernatremia- resolved increase free water flushes to 400cc q8h labs 01/11 Na of 145 labs 01/19 sodium 142 f/u labs 01/26/17 Prophylactic measure Pepcid 20 mg PEG BID Lovenox 40mg SC daily SCDs and offloading boots continue to turn and reposition q2h Continue to monitor medication administrations and clinical presentation weekly labs- last drawn 01/19 <Donnell Ying - Last Filed: 01/24/17 15:21> Objective - Vital Signs/Intake and Output Vital Signs (last 24 hours): Temp Pulse Resp BP Pulse Ox 98 F 75 20 129/76 98 01/24/17 07:36 01/24/17 07:36 01/24/17 07:36 01/24/17 07:36 01/24/17 07:36 Intake and Output: 01/24/17 01/24/17 06:59 18:59 Intake Total 1460 880 Output Total 450 300 Balance 1010 580 - Medications Medications: Current Medications Aspirin (Aspirin Chewable) 81 mg PEG DAILY [facility] Last Admin: 01/24/17 10:25 Dose: 81 mg Bethanechol Chloride (Urecholine) 50 mg PEG TID [facility] Last Admin: 01/24/17 13:34 Dose: 50 mg Carvedilol (Coreg) 3.125 mg PEG BID [facility] Last Admin: 01/24/17 10:25 Dose: 3.125 mg Clopidogrel Bisulfate (Plavix) 75 mg PO DAILY [facility] Last Admin: 01/24/17 10:25 Dose: 75 mg Emollient Ointment (Vaseline Oint) 5 gm TOP BID PRN PRN Reason: Dry skin Last Admin: 01/23/17 09:50 Dose: 5 gm Enoxaparin Sodium (Lovenox) 40 mg SC DAILY [facility] Last Admin: 01/24/17 10:26 Dose: 40 mg Famotidine (Pepcid) 20 mg PEG BID [facility] Last Admin: 01/24/17 10:26 Dose: 20 mg Finasteride (Proscar) 5 mg PEG DAILY [facility] Last Admin: 01/24/17 10:26 Dose: 5 mg Guaifenesin (Robitussin) 200 mg PO Q4H PRN PRN Reason: Cough and congestion Last Admin: 01/18/17 11:30 Dose: 200 mg Levetiracetam (Keppra) 500 mg PEG BID [facility] Last Admin: 01/24/17 10:25 Dose: 500 mg Tamsulosin HCl (Flomax) 0.4 mg PO DAILY [facility] Last Admin: 01/24/17 10:25 Dose: 0.4 mg - Labs Labs: 01/19/17 07:00 01/19/17 07:00 PT 10.6 SECONDS (9.7-12.2) 11/24/15 14:10 INR 1.0 11/24/15 14:10 APTT 25 SECONDS (21-34) 11/24/15 14:10 Attending/Attestation - Attestation I have personally seen and examined this patient.: Yes I have fully participated in the care of the patient.: Yes I have reviewed all pertinent clinical information, including history, physical exam and plan: Yes Notes (Text): 01/24/17 15:21 Patient was seen and examined at bedside No change in clinical condition Continue current management
[2017-01-24] MEDS: levETIRAcetam 100 mg/ml (5ml) Oral Syringe PEG SCH ×2 (10:25→17:35)
[2017-01-24] MEDS: Enoxaparin 40 mg Syringe SC SCH (10:26)
--- NOTE | 2017-01-25 00:41 | CP.PCM.PN ---
<Thomas Aden - Last Filed: 01/25/17 00:41> Subjective - Date & Time of Evaluation Date of Evaluation: 01/25/17 Time of Evaluation: 03:50 - Subjective Subjective: Patient seen and examined at bedside; patient is unable to perform in subjective history taking portion of exam due to GCS4 Objective - Vital Signs/Intake and Output Vital Signs (last 24 hours): Temp Pulse Resp BP Pulse Ox 98.3 F 75 20 133/83 100 01/24/17 17:00 01/24/17 17:00 01/24/17 17:00 01/24/17 17:00 01/24/17 17:00 Intake and Output: 01/24/17 01/25/17 18:59 06:59 Intake Total 880 880 Output Total 300 600 Balance 580 280 - Medications Medications: Current Medications Aspirin (Aspirin Chewable) 81 mg PEG DAILY [facility] Last Admin: 01/24/17 10:25 Dose: 81 mg Bethanechol Chloride (Urecholine) 50 mg PEG TID [facility] Last Admin: 01/24/17 17:36 Dose: 50 mg Carvedilol (Coreg) 3.125 mg PEG BID [facility] Last Admin: 01/24/17 17:35 Dose: 3.125 mg Clopidogrel Bisulfate (Plavix) 75 mg PO DAILY [facility] Last Admin: 01/24/17 10:25 Dose: 75 mg Emollient Ointment (Vaseline Oint) 5 gm TOP BID PRN PRN Reason: Dry skin Last Admin: 01/23/17 09:50 Dose: 5 gm Enoxaparin Sodium (Lovenox) 40 mg SC DAILY [facility] Last Admin: 01/24/17 10:26 Dose: 40 mg Famotidine (Pepcid) 20 mg PEG BID [facility] Last Admin: 01/24/17 17:36 Dose: 20 mg Finasteride (Proscar) 5 mg PEG DAILY [facility] Last Admin: 01/24/17 10:26 Dose: 5 mg Guaifenesin (Robitussin) 200 mg PO Q4H PRN PRN Reason: Cough and congestion Last Admin: 01/18/17 11:30 Dose: 200 mg Levetiracetam (Keppra) 500 mg PEG BID [facility] Last Admin: 01/24/17 17:35 Dose: 500 mg Tamsulosin HCl (Flomax) 0.4 mg PO DAILY [facility] Last Admin: 03/04/17 10:25 Dose: 0.4 mg - Labs Labs: 01/19/17 07:00 01/19/17 07:00 PT 10.6 SECONDS (9.7-12.2) 11/24/15 14:10 INR 1.0 11/24/15 14:10 APTT 25 SECONDS (21-34) 11/24/15 14:10 - Head Exam Additional comments: Assessment: - Constitutional Appears: No Acute Distress - Head Exam Head Exam: ATRAUMATIC, NORMAL INSPECTION - ENT Exam ENT Exam: Mucous Membranes Moist - Neck Exam Neck Exam: Normal Inspection Additional comments: +trach collar in place - Respiratory Exam Respiratory Exam: NORMAL BREATHING PATTERN. absent: Accessory Muscle Use, Rales , Wheezes - Cardiovascular Exam Cardiovascular Exam: REGULAR RHYTHM, +S1, +S2 - GI/Abdominal Exam GI & Abdominal Exam: Soft Additional comments: PEG tube in place - Extremities Exam Extremities Exam: Normal Inspection Additional comments: Air boots and SCDs in place - Neurological Exam Neurological Exam: Altered, Awake - Skin Skin Exam: Dry, Normal Color, Warm Assessment and Plan - Assessment and Plan (Free Text) Assessment: Anoxic brain injury s/p cardiac arrest in 05/2015 no acute changes, continue current management PEG tube dysfunction- resolved IR placed new PEG 01/06, functioning appropriately UTI- resolved CBI discontinued 01/08, baker catheter removed, patient with condom catheter- voiding yellow/ slightly cloudy urine, will continue to monitor 12/30- Triple lumen Baker in place for irrigation, added neosporin to CBI Urine Culture 12/03/16 - Positive Kleb pneumo, sensitive to cipro - resolved. Off antibiotics now Sacral Ulcers Stage I ulcer present on sacrum; area frequently alternates between Stage I and healed ulcer. Continue frequent turning, protective ointment and skin checks. 01/07- wound care saw patient, air mattress adjusted and protective ointment applied to sacrum Urinary Retention Flomax 0.4mg PEG daily Proscar 5mg PEG daily continue Bethanecol 50mg PEG TID- started after persistent retention and found to be effective. monitor I's and O's check bladder scan for residual urine three times weekly Last bladder scan done 01/18 with 50cc residual Respiratory failure trach collar in place - normal resp pattern, thick secretions 01/12- starting mucinex for secretions CAD (coronary artery disease) s/p cardiac stents on 06/13/15 ASA 81mg via PEG daily Coreg 3.125mg PEG BID Plavix 75mg PO daily Seizures Keppra 500mg PEG BID for seizure prophylaxis Lower extremity edema Lasix via PEG as needed. 01/22- edema resolved 01/21- mild edema- giving 40mg via PEG 01/05 mild edema- given 40mg via PEG Hypernatremia- resolved increase free water flushes to 400cc q8h labs 01/11 Na of 145 labs 01/19 sodium 142 f/u labs 01/26/17 Prophylactic measure Pepcid 20 mg PEG BID Lovenox 40mg SC daily SCDs and offloading boots continue to turn and reposition q2h Continue to monitor medication administrations and clinical presentation weekly labs- last drawn 01/19 <Donnell Ying - Last Filed: 01/25/17 13:15> Objective - Vital Signs/Intake and Output Vital Signs (last 24 hours): Temp Pulse Resp BP Pulse Ox 98.4 F 88 20 127/87 100 01/25/17 08:23 01/25/17 11:21 01/25/17 08:23 01/25/17 08:23 01/25/17 08:23 Intake and Output: 01/25/17 01/25/17 06:59 18:59 Intake Total 1760 Output Total 1000 Balance 760 - Medications Medications: Current Medications Aspirin (Aspirin Chewable) 81 mg PEG DAILY [facility] Last Admin: 01/25/17 09:58 Dose: 81 mg Bethanechol Chloride (Urecholine) 50 mg PEG TID [facility] Last Admin: 01/25/17 09:58 Dose: 50 mg Carvedilol (Coreg) 3.125 mg PEG BID [facility] Last Admin: 01/25/17 10:00 Dose: 3.125 mg Clopidogrel Bisulfate (Plavix) 75 mg PO DAILY [facility] Last Admin: 01/25/17 09:57 Dose: 75 mg Emollient Ointment (Vaseline Oint) 5 gm TOP BID PRN PRN Reason: Dry skin Last Admin: 01/23/17 09:50 Dose: 5 gm Famotidine (Pepcid) 20 mg PEG BID [facility] Last Admin: 01/25/17 09:58 Dose: 20 mg Finasteride (Proscar) 5 mg PEG DAILY [facility] Last Admin: 01/25/17 09:58 Dose: 5 mg Guaifenesin (Robitussin) 200 mg PO Q4H PRN PRN Reason: Cough and congestion Last Admin: 01/25/17 09:58 Dose: 200 mg Levetiracetam (Keppra) 500 mg PEG BID [facility] Last Admin: 01/25/17 09:58 Dose: 500 mg Tamsulosin HCl (Flomax) 0.4 mg PO DAILY [facility] Last Admin: 01/25/17 09:58 Dose: 0.4 mg - Labs Labs: 01/19/17 07:00 01/19/17 07:00 PT 10.6 SECONDS (9.7-12.2) 11/24/15 14:10 INR 1.0 11/24/15 14:10 APTT 25 SECONDS (21-34) 11/24/15 14:10 Attending/Attestation - Attestation I have personally seen and examined this patient.: Yes I have fully participated in the care of the patient.: Yes I have reviewed all pertinent clinical information, including history, physical exam and plan: Yes Notes (Text): 01/25/17 13:14 Patient was seen and examined at bedside No change in clinical condition No skin breaks noted Good urine out put Follow up labs in AM
[2017-01-25] MEDS: levETIRAcetam 100 mg/ml (5ml) Oral Syringe PEG SCH ×2 (09:58→17:10)
[2017-01-25] MEDS: guaiFENesin 200 mg/10 ml Syrup UD PO PRN (09:58)
[2017-01-26 07:32] LABS: BASO # 0.1 K/uL (0.0-0.2); BASO % 0.6 % (0.0-2.0); EOS # 0.2 K/uL (0.0-0.7); EOS % 2.5 % (0.0-4.0); HEMOGLOBIN 11.5 g/dL (12.0-18.0); LYMPH # 1.7 K/uL (1.0-4.3); LYMPH % 18.4 % (20.0-40.0); MEAN CELL VOLUME 86.1 fL (80.0-94.0); MEAN CORPUSCULAR HEMOGLOBIN 28.4 pg (27.0-31.0); MEAN PLATELET VOLUME 9.2 fL (7.2-11.7); MONO % 11.4 % (0.0-10.0); NEUT # 6.1 K/uL (1.8-7.0); NEUT % 67.1 % (50.0-75.0); NRBC % 0.1 % (0.0-2.0); RBC 4.04 Mil/uL (4.40-5.90); RED CELL DISTRIBUTION WIDTH 15.7 % (11.5-14.5); WHITE BLOOD COUNT 9.2 K/uL (4.8-10.8)
[2017-01-26 07:51] LABS: ALBUMIN 3.5 g/dL (3.5-5.0)
[2017-01-26 07:54] LABS: ALB/GLOB RATIO 0.9 (1.0-2.1); ALT/SGPT 52 U/L (21-72); AST/SGOT 25 U/L (17-59); BLOOD UREA NITROGEN 20 mg/dL (9-20); GFR NON-AFRICAN AMERICAN > 60
[2017-01-26 07:55] LABS: CALCIUM 8.2 mg/dl (8.6-10.4)
--- NOTE | 2017-01-26 09:56 | CP.PCM.PN ---
<Judith Forrester - Last Filed: 01/26/17 09:53> Subjective - Date & Time of Evaluation Date of Evaluation: 01/26/17 Time of Evaluation: 09:53 - Subjective Subjective: PGY1 on Dr. Braswell's Service: Patient seen and examined. No acute events overnight, patient in no acute distress. Patient's condom catheter displaced. Discussed with nursing, bladder distended on exam- will order straight cath once, then condom catheter to be placed back on afterwards. Objective - Vital Signs/Intake and Output Vital Signs (last 24 hours): Temp Pulse Resp BP Pulse Ox 99 F 88 20 128/85 99 01/26/17 07:00 01/26/17 07:00 01/26/17 07:00 01/26/17 07:00 01/26/17 07:00 Intake and Output: 01/26/17 01/26/17 06:59 18:59 Intake Total 1760 Output Total 400 Balance 1360 - Medications Medications: Current Medications Aspirin (Aspirin Chewable) 81 mg PEG DAILY [facility] Last Admin: 01/25/17 09:58 Dose: 81 mg Bethanechol Chloride (Urecholine) 50 mg PEG TID [facility] Last Admin: 01/25/17 17:10 Dose: 50 mg Carvedilol (Coreg) 3.125 mg PEG BID [facility] Last Admin: 01/25/17 17:10 Dose: 3.125 mg Clopidogrel Bisulfate (Plavix) 75 mg PO DAILY [facility] Last Admin: 01/25/17 09:57 Dose: 75 mg Emollient Ointment (Vaseline Oint) 5 gm TOP BID PRN PRN Reason: Dry skin Last Admin: 01/23/17 09:50 Dose: 5 gm Famotidine (Pepcid) 20 mg PEG BID [facility] Last Admin: 01/25/17 17:10 Dose: 20 mg Finasteride (Proscar) 5 mg PEG DAILY [facility] Last Admin: 01/25/17 09:58 Dose: 5 mg Guaifenesin (Robitussin) 200 mg PO Q4H PRN PRN Reason: Cough and congestion Last Admin: 01/25/17 09:58 Dose: 200 mg Levetiracetam (Keppra) 500 mg PEG BID [facility] Last Admin: 01/25/17 17:10 Dose: 500 mg Tamsulosin HCl (Flomax) 0.4 mg PO DAILY [facility] Last Admin: 01/25/17 09:58 Dose: 0.4 mg - Labs Labs: 01/26/17 07:13 01/26/17 07:13 PT 10.6 SECONDS (9.7-12.2) 11/24/15 14:10 INR 1.0 11/24/15 14:10 APTT 25 SECONDS (21-34) 11/24/15 14:10 - Constitutional Appears: No Acute Distress, Chronically Ill - Head Exam Head Exam: ATRAUMATIC - Eye Exam Eye Exam: EOMI - ENT Exam Additional comments: trach collar - Respiratory Exam Respiratory Exam: Clear to Ausculation Bilateral - Cardiovascular Exam Cardiovascular Exam: +S1, +S2 - GI/Abdominal Exam GI & Abdominal Exam: Normal Bowel Sounds Additional comments: PEG in place with tube feeds running - Exam Additional comments: condom catheter not in place bladder distended on palpation - Extremities Exam Extremities Exam: absent: Pedal Edema Additional comments: SCDs and heel protectors in place - Back Exam Additional comments: stage I sacral ulcer small area stage II in upper gluteal cleft - Neurological Exam Neurological Exam: Awake - Skin Skin Exam: Warm Assessment and Plan - Assessment and Plan (Free Text) Assessment: Anoxic brain injury s/p cardiac arrest in 05/2015 no acute changes, continue current management PEG tube dysfunction- resolved IR placed new PEG 01/06, functioning appropriately UTI- resolved CBI discontinued 01/08, baker catheter removed, patient with condom catheter- voiding yellow/ slightly cloudy urine, will continue to monitor 12/30- Triple lumen Baker in place for irrigation, added neosporin to CBI Urine Culture 12/03/16 - Positive Kleb pneumo, sensitive to cipro - resolved. Off antibiotics now Sacral Ulcers Small area stage II in upper gluteal cleft- pink base Stage I ulcer present on sacrum; area frequently alternates between Stage I and healed ulcer. Continue frequent turning, protective ointment and skin checks. 01/07- wound care saw patient, air mattress adjusted and protective ointment applied to sacrum Urinary Retention bladder distended on exam- to be straight cathed today Flomax 0.4mg PEG daily Proscar 5mg PEG daily continue Bethanecol 50mg PEG TID- started after persistent retention and found to be effective. monitor I's and O's check bladder scan for residual urine three times weekly Last bladder scan done 01/18 with 50cc residual Respiratory failure trach collar in place - normal resp pattern, thick secretions 01/12- starting mucinex for secretions CAD (coronary artery disease) s/p cardiac stents on 06/13/15 ASA 81mg via PEG daily Coreg 3.125mg PEG BID Plavix 75mg PO daily Seizures Keppra 500mg PEG BID for seizure prophylaxis Lower extremity edema Lasix via PEG as needed. 01/22- edema resolved 01/21- mild edema- giving 40mg via PEG 01/05 mild edema- given 40mg via PEG Hypernatremia- resolved increase free water flushes to 400cc q8h 01/26/17: Na of 139 labs 01/11 Na of 145 labs 01/19 sodium 142 f/u labs 01/26/17 Prophylactic measure Pepcid 20 mg PEG BID Lovenox 40mg SC daily SCDs and offloading boots continue to turn and reposition q2h Continue to monitor medication administrations and clinical presentation weekly labs- last drawn 01/26/17 <Colleen Braswell V - Last Filed: 01/26/17 18:03> Objective - Vital Signs/Intake and Output Vital Signs (last 24 hours): Temp Pulse Resp BP Pulse Ox 99.5 F 83 20 120/81 98 01/26/17 15:00 01/26/17 15:00 01/26/17 15:00 01/26/17 15:00 01/26/17 15:00 Intake and Output: 01/26/17 01/26/17 06:59 18:59 Intake Total 1760 880 Output Total 400 600 Balance 1360 280 - Medications Medications: Current Medications Aspirin (Aspirin Chewable) 81 mg PEG DAILY [facility] Last Admin: 01/26/17 10:36 Dose: 81 mg Bethanechol Chloride (Urecholine) 50 mg PEG TID [facility] Last Admin: 01/26/17 17:49 Dose: 50 mg Carvedilol (Coreg) 3.125 mg PEG BID [facility] Last Admin: 01/26/17 17:49 Dose: 3.125 mg Clopidogrel Bisulfate (Plavix) 75 mg PO DAILY [facility] Last Admin: 01/26/17 10:36 Dose: 75 mg Emollient Ointment (Vaseline Oint) 5 gm TOP BID PRN PRN Reason: Dry skin Last Admin: 01/26/17 11:46 Dose: 5 gm Famotidine (Pepcid) 20 mg PEG BID [facility] Last Admin: 01/26/17 10:36 Dose: 20 mg Finasteride (Proscar) 5 mg PEG DAILY [facility] Last Admin: 01/26/17 10:38 Dose: 5 mg Guaifenesin (Robitussin) 200 mg PO Q4H PRN PRN Reason: Cough and congestion Last Admin: 01/26/17 10:37 Dose: 200 mg Levetiracetam (Keppra) 500 mg PEG BID [facility] Last Admin: 01/26/17 17:48 Dose: 500 mg Tamsulosin HCl (Flomax) 0.4 mg PO DAILY [facility] Last Admin: 01/26/17 10:36 Dose: 0.4 mg - Labs Labs: 01/26/17 07:13 01/26/17 07:13 PT 10.6 SECONDS (9.7-12.2) 11/24/15 14:10 INR 1.0 11/24/15 14:10 APTT 25 SECONDS (21-34) 11/24/15 14:10 Attending/Attestation - Attestation I have personally seen and examined this patient.: Yes I have fully participated in the care of the patient.: Yes I have reviewed all pertinent clinical information, including history, physical exam and plan: Yes Notes (Text): Patient seen, examined, and case discussed with day-time resident. Agree with the assessment/plan as indicated by the resident. Patient's condom catheter not in place during rounds. Bladder scan showing minimal urine and urine straight cath as well. Sacarl decubitus about stage 2. Closed. No drainage/ Patient actively having a bowel movement at bedside.
[2017-01-26] MEDS: guaiFENesin 200 mg/10 ml Syrup UD PO PRN (10:37)
[2017-01-26] MEDS: levETIRAcetam 100 mg/ml (5ml) Oral Syringe PEG SCH ×2 (10:38→17:48)
[2017-01-26] MEDS: Petrolatum Oint Foilpak (5 gm) TOP PRN (11:46)
[2017-01-27] MEDS: levETIRAcetam 100 mg/ml (5ml) Oral Syringe PEG SCH ×2 (10:36→17:48)
--- NOTE | 2017-01-27 10:50 | CP.PCM.PN ---
<Judith Forrester DO - Last Filed: 01/27/17 12:34> Subjective - Date & Time of Evaluation Date of Evaluation: 01/27/17 Time of Evaluation: 07:35 - Subjective Subjective: PGY1 on Dr. Beth's service: Patient seen and examined. Patient resting comfortable, in no acute distress. Per report, patient was bladder scanned last night and had 14cc urine in bladder. Will continue to monitor urine output. Condom catheter frequently becomes displaced. Objective - Vital Signs/Intake and Output Vital Signs (last 24 hours): Temp Pulse Resp BP Pulse Ox 98.8 F 85 20 107/63 97 01/27/17 08:12 01/27/17 08:12 01/27/17 08:12 01/27/17 08:12 01/27/17 08:12 Intake and Output: 01/27/17 01/27/17 06:59 18:59 Intake Total 1660 Output Total 700 Balance 960 - Medications Medications: Current Medications Aspirin (Aspirin Chewable) 81 mg PEG DAILY [facility] Last Admin: 01/27/17 10:36 Dose: 81 mg Bethanechol Chloride (Urecholine) 50 mg PEG TID [facility] Last Admin: 01/27/17 10:36 Dose: 50 mg Carvedilol (Coreg) 3.125 mg PEG BID [facility] Last Admin: 01/27/17 10:36 Dose: 3.125 mg Clopidogrel Bisulfate (Plavix) 75 mg PO DAILY [facility] Last Admin: 01/27/17 10:35 Dose: 75 mg Emollient Ointment (Vaseline Oint) 5 gm TOP BID PRN PRN Reason: Dry skin Last Admin: 01/26/17 11:46 Dose: 5 gm Famotidine (Pepcid) 20 mg PEG BID [facility] Last Admin: 01/27/17 10:36 Dose: 20 mg Finasteride (Proscar) 5 mg PEG DAILY [facility] Last Admin: 01/27/17 10:37 Dose: 5 mg Guaifenesin (Robitussin) 200 mg PO Q4H PRN PRN Reason: Cough and congestion Last Admin: 01/26/17 10:37 Dose: 200 mg Levetiracetam (Keppra) 500 mg PEG BID [facility] Last Admin: 01/27/17 10:36 Dose: 500 mg Tamsulosin HCl (Flomax) 0.4 mg PO DAILY [facility] Last Admin: 01/27/17 10:36 Dose: 0.4 mg - Labs Labs: 01/26/17 07:13 01/26/17 07:13 PT 10.6 SECONDS (9.7-12.2) 11/24/15 14:10 INR 1.0 11/24/15 14:10 APTT 25 SECONDS (21-34) 11/24/15 14:10 - Constitutional Appears: No Acute Distress, Chronically Ill - Head Exam Head Exam: ATRAUMATIC, NORMOCEPHALIC - Eye Exam Eye Exam: EOMI - ENT Exam ENT Exam: Mucous Membranes Moist - Neck Exam Additional comments: trach collar in place - Respiratory Exam Respiratory Exam: Clear to Ausculation Bilateral - Cardiovascular Exam Cardiovascular Exam: +S1, +S2 - GI/Abdominal Exam GI & Abdominal Exam: Soft, Normal Bowel Sounds Additional comments: PEG in place with tube feeds running - Exam Additional comments: condom catheter in place - Extremities Exam Extremities Exam: absent: Pedal Edema Additional comments: SCDs and heel protectors in place - Back Exam Additional comments: majority of sacrum is stage I ulcer top of gluteal cleft is small stage II- pink base with no exudate. barrier cream applied. patient having BM at time of exam - Neurological Exam Neurological Exam: Awake - Skin Skin Exam: Warm Assessment and Plan - Assessment and Plan (Free Text) Assessment: Assessment: Anoxic brain injury s/p cardiac arrest in 05/2015 no acute changes, continue current management PEG tube dysfunction- resolved IR placed new PEG 01/06, functioning appropriately UTI- resolved CBI discontinued 01/08, baker catheter removed, patient with condom catheter- voiding yellow/ slightly cloudy urine, will continue to monitor 12/30- Triple lumen Baker in place for irrigation, added neosporin to CBI Urine Culture 12/03/16 - Positive Kleb pneumo, sensitive to cipro - resolved. Off antibiotics now Urinary Retention 01/27: yesterday was straight cath'd with 60cc clear cherie urine. bladder scan done twice with minimal residual urine seen. Flomax 0.4mg PEG daily Proscar 5mg PEG daily continue Bethanecol 50mg PEG TID- started after persistent retention and found to be effective. monitor I's and O's check bladder scan for residual urine three times weekly Last bladder scan done 01/18 with 50cc residual Sacral Ulcers Small area stage II in upper gluteal cleft- pink base Stage I ulcer present on sacrum; area frequently alternates between Stage I and healed ulcer. Continue frequent turning, protective ointment and skin checks. 01/07- wound care saw patient, air mattress adjusted and protective ointment applied to sacrum Respiratory failure trach collar in place - normal resp pattern, thick secretions 01/12- starting mucinex for secretions CAD (coronary artery disease) s/p cardiac stents on 06/13/15 ASA 81mg via PEG daily Coreg 3.125mg PEG BID Plavix 75mg PO daily Seizures Keppra 500mg PEG BID for seizure prophylaxis Lower extremity edema Lasix via PEG as needed. 01/22- edema resolved 01/21- mild edema- giving 40mg via PEG 01/05 mild edema- given 40mg via PEG Hypernatremia- resolved increase free water flushes to 400cc q8h 01/26/17: Na of 139 labs 01/11 Na of 145 labs 01/19 sodium 142 f/u labs 01/26/17 Prophylactic measure Pepcid 20 mg PEG BID Lovenox 40mg SC daily SCDs and offloading boots continue to turn and reposition q2h Continue to monitor medication administrations and clinical presentation weekly labs- last drawn 01/26/17 <Nathaniel Beth - Last Filed: 01/28/17 09:15> Objective - Vital Signs/Intake and Output Vital Signs (last 24 hours): Temp Pulse Resp BP Pulse Ox 97.5 F L 77 20 128/83 100 01/28/17 08:00 01/28/17 08:00 01/28/17 08:00 01/28/17 08:00 01/28/17 08:00 Intake and Output: 01/28/17 01/28/17 06:59 18:59 Intake Total 1760 Output Total 800 Balance 960 - Medications Medications: Current Medications Aspirin (Aspirin Chewable) 81 mg PEG DAILY [facility] Last Admin: 01/27/17 10:36 Dose: 81 mg Bethanechol Chloride (Urecholine) 50 mg PEG TID [facility] Last Admin: 01/27/17 17:49 Dose: 50 mg Carvedilol (Coreg) 3.125 mg PEG BID [facility] Last Admin: 01/27/17 17:48 Dose: 3.125 mg Clopidogrel Bisulfate (Plavix) 75 mg PO DAILY [facility] Last Admin: 01/27/17 10:35 Dose: 75 mg Emollient Ointment (Vaseline Oint) 5 gm TOP BID PRN PRN Reason: Dry skin Last Admin: 01/26/17 11:46 Dose: 5 gm Enoxaparin Sodium (Lovenox) 40 mg SC DAILY [facility] Last Admin: 01/27/17 12:31 Dose: 40 mg Famotidine (Pepcid) 20 mg PEG BID [facility] Last Admin: 01/27/17 17:49 Dose: 20 mg Finasteride (Proscar) 5 mg PEG DAILY [facility] Last Admin: 01/27/17 10:37 Dose: 5 mg Guaifenesin (Robitussin) 200 mg PO Q4H PRN PRN Reason: Cough and congestion Last Admin: 01/26/17 10:37 Dose: 200 mg Levetiracetam (Keppra) 500 mg PEG BID [facility] Last Admin: 01/27/17 17:48 Dose: 500 mg Tamsulosin HCl (Flomax) 0.4 mg PO DAILY [facility] Last Admin: 01/27/17 10:36 Dose: 0.4 mg - Labs Labs: 01/26/17 07:13 01/26/17 07:13 PT 10.6 SECONDS (9.7-12.2) 11/24/15 14:10 INR 1.0 11/24/15 14:10 APTT 25 SECONDS (21-34) 11/24/15 14:10 Attending/Attestation - Attestation I have personally seen and examined this patient.: Yes I have fully participated in the care of the patient.: Yes I have reviewed all pertinent clinical information, including history, physical exam and plan: Yes Notes (Text): Patient admitted s/p cardiac arrest with ensuing anoxic encephalopathy; prolonged hospital course due to inability to find placement; Active issues: Stage I and II sacral decubitus ulcers - 2 cm stage II ulcer on top of sacrum is new; nursing staff instructed to put protective ointment and continue frequent turning; Urinary Retention - Intermittent but not lately; bladder scan normal yesterday; continue bethanecol 50 mg tid; Hypernatremia - Resolved with increased free H20 flushes; monitor weekly; CAD s/p WILLIE - continue ASA, plavix and coreg.
[2017-01-27] MEDS: Enoxaparin 40 mg Syringe SC SCH (12:31)
[2017-01-28] MEDS: Enoxaparin 40 mg Syringe SC SCH (10:20)
[2017-01-28] MEDS: levETIRAcetam 100 mg/ml (5ml) Oral Syringe PEG SCH ×2 (10:20→17:14)
--- NOTE | 2017-01-28 12:22 | CP.PCM.PN ---
<Judith Forrester DO - Last Filed: 01/28/17 12:17> Subjective - Date & Time of Evaluation Date of Evaluation: 01/28/17 Time of Evaluation: 07:25 - Subjective Subjective: PGY1 on Dr. Beth's service: Patient seen and examined. Patient resting comfortably, no acute events overnight. Discussed with nursing need for frequent turning in bed as well as checking condom catheter. Objective - Vital Signs/Intake and Output Vital Signs (last 24 hours): Temp Pulse Resp BP Pulse Ox 97.5 F L 77 20 128/83 100 01/28/17 08:00 01/28/17 11:31 01/28/17 08:00 01/28/17 08:00 01/28/17 08:00 Intake and Output: 01/28/17 01/28/17 06:59 18:59 Intake Total 1760 Output Total 800 Balance 960 - Medications Medications: Current Medications Aspirin (Aspirin Chewable) 81 mg PEG DAILY [facility] Last Admin: 01/28/17 10:20 Dose: 81 mg Bethanechol Chloride (Urecholine) 50 mg PEG TID [facility] Last Admin: 01/28/17 10:21 Dose: 50 mg Carvedilol (Coreg) 3.125 mg PEG BID [facility] Last Admin: 01/28/17 10:23 Dose: 3.125 mg Clopidogrel Bisulfate (Plavix) 75 mg PO DAILY [facility] Last Admin: 01/28/17 10:23 Dose: 75 mg Emollient Ointment (Vaseline Oint) 5 gm TOP BID PRN PRN Reason: Dry skin Last Admin: 01/26/17 11:46 Dose: 5 gm Enoxaparin Sodium (Lovenox) 40 mg SC DAILY [facility] Last Admin: 01/28/17 10:20 Dose: 40 mg Famotidine (Pepcid) 20 mg PEG BID [facility] Last Admin: 01/28/17 10:20 Dose: 20 mg Finasteride (Proscar) 5 mg PEG DAILY [facility] Last Admin: 01/28/17 10:20 Dose: 5 mg Guaifenesin (Robitussin) 200 mg PO Q4H PRN PRN Reason: Cough and congestion Last Admin: 01/26/17 10:37 Dose: 200 mg Levetiracetam (Keppra) 500 mg PEG BID [facility] Last Admin: 01/28/17 10:20 Dose: 500 mg Tamsulosin HCl (Flomax) 0.4 mg PO DAILY [facility] Last Admin: 01/28/17 10:20 Dose: 0.4 mg - Labs Labs: 01/26/17 07:13 01/26/17 07:13 PT 10.6 SECONDS (9.7-12.2) 11/24/15 14:10 INR 1.0 11/24/15 14:10 APTT 25 SECONDS (21-34) 11/24/15 14:10 - Constitutional Appears: Non-toxic, No Acute Distress, Chronically Ill - Head Exam Head Exam: ATRAUMATIC - Eye Exam Eye Exam: EOMI - ENT Exam ENT Exam: Mucous Membranes Moist - Neck Exam Additional comments: trach collar in place, thick secretions noted - Respiratory Exam Respiratory Exam: Clear to Ausculation Bilateral - Cardiovascular Exam Cardiovascular Exam: +S1, +S2 - GI/Abdominal Exam GI & Abdominal Exam: Normal Bowel Sounds Additional comments: PEG in place with tube feeds running - Exam Additional comments: condom catheter displaced - Extremities Exam Extremities Exam: absent: Pedal Edema Additional comments: SCDs and heel protectors in place - Neurological Exam Neurological Exam: Awake - Skin Skin Exam: Warm Assessment and Plan - Assessment and Plan (Free Text) Assessment: Anoxic brain injury s/p cardiac arrest in 05/2015 no acute changes, continue current management PEG tube dysfunction- resolved IR placed new PEG 01/06, functioning appropriately UTI- resolved CBI discontinued 01/08, baker catheter removed, patient with condom catheter- voiding yellow/ slightly cloudy urine, will continue to monitor 12/30- Triple lumen Baker in place for irrigation, added neosporin to CBI Urine Culture 12/03/16 - Positive Kleb pneumo, sensitive to cipro - resolved. Off antibiotics now Urinary Retention 01/28: condom catheter displaced, so difficult to measure accurate output, but patient not retaining urine 01/27: yesterday was straight cath'd with 60cc clear cherie urine. bladder scan done twice with minimal residual urine seen. Flomax 0.4mg PEG daily Proscar 5mg PEG daily continue Bethanecol 50mg PEG TID- started after persistent retention and found to be effective. monitor I's and O's check bladder scan for residual urine three times weekly Last bladder scan done 01/18 with 50cc residual Sacral Ulcers Small area stage II in upper gluteal cleft- pink base Stage I ulcer present on sacrum; area frequently alternates between Stage I and healed ulcer. Continue frequent turning, protective ointment and skin checks. 01/07- wound care saw patient, air mattress adjusted and protective ointment applied to sacrum Respiratory failure trach collar in place - normal resp pattern, thick secretions 01/12- starting mucinex for secretions CAD (coronary artery disease) s/p cardiac stents on 06/13/15 ASA 81mg via PEG daily Coreg 3.125mg PEG BID Plavix 75mg PO daily Seizures Keppra 500mg PEG BID for seizure prophylaxis Lower extremity edema Lasix via PEG as needed. 01/22- edema resolved 01/21- mild edema- giving 40mg via PEG 01/05 mild edema- given 40mg via PEG Hypernatremia- resolved increase free water flushes to 400cc q8h 01/26/17: Na of 139 labs 01/11 Na of 145 labs 01/19 sodium 142 f/u labs 01/26/17 Prophylactic measure Pepcid 20 mg PEG BID Lovenox 40mg SC daily SCDs and offloading boots continue to turn and reposition q2h Continue to monitor medication administrations and clinical presentation weekly labs- last drawn 01/26/17 <Nathaniel Beth - Last Filed: 03/03/17 21:51> Objective - Vital Signs/Intake and Output Vital Signs (last 24 hours): Temp Pulse Resp BP Pulse Ox 98.5 F 79 18 112/68 98 03/03/17 16:00 03/03/17 16:00 03/03/17 16:00 03/03/17 16:00 03/03/17 16:00 Intake and Output: 03/03/17 03/04/17 18:59 06:59 Intake Total 880 Output Total 200 Balance 680 - Medications Medications: Current Medications Aspirin (Aspirin Chewable) 81 mg PEG DAILY [facility] Last Admin: 03/03/17 09:12 Dose: 81 mg Bethanechol Chloride (Urecholine) 50 mg PEG TID [facility] Last Admin: 03/03/17 13:56 Dose: 50 mg Bisacodyl (Dulcolax) 5 mg PO Q72H PRN PRN Reason: Constipation Carvedilol (Coreg) 3.125 mg PEG BID [facility] Last Admin: 03/03/17 09:12 Dose: 3.125 mg Clopidogrel Bisulfate (Plavix) 75 mg PEG DAILY [facility] Last Admin: 03/03/17 09:12 Dose: 75 mg Emollient Ointment (Vaseline Oint) 5 gm TOP BID PRN PRN Reason: Dry skin Enoxaparin Sodium (Lovenox) 40 mg SC DAILY [facility] Last Admin: 03/03/17 09:12 Dose: 40 mg Famotidine (Pepcid) 20 mg PEG BID [facility] Last Admin: 03/03/17 09:12 Dose: 20 mg Finasteride (Proscar) 5 mg PEG DAILY [facility] Last Admin: 03/03/17 09:12 Dose: 5 mg Levetiracetam (Keppra) 500 mg PEG BID [facility] Last Admin: 03/03/17 09:11 Dose: 500 mg Tamsulosin HCl (Flomax) 0.4 mg PEG DAILY [facility] Last Admin: 03/03/17 09:12 Dose: 0.4 mg - Labs Labs: 03/02/17 06:03 03/02/17 06:03 PT 10.6 SECONDS (9.7-12.2) 11/24/15 14:10 INR 1.0 11/24/15 14:10 APTT 25 SECONDS (21-34) 11/24/15 14:10 Attending/Attestation - Attestation I have personally seen and examined this patient.: Yes I have fully participated in the care of the patient.: Yes I have reviewed all pertinent clinical information, including history, physical exam and plan: Yes
[2017-01-29] MEDS: Enoxaparin 40 mg Syringe SC SCH (13:07)
[2017-01-29] MEDS: levETIRAcetam 100 mg/ml (5ml) Oral Syringe PEG SCH ×2 (13:10→17:53)
--- NOTE | 2017-01-29 17:21 | CP.PCM.PN ---
<BarringtonMichel - Last Filed: 01/29/17 17:18> Subjective - Date & Time of Evaluation Date of Evaluation: 01/29/17 Time of Evaluation: 17:18 - Subjective Subjective: PGY-1 note for medicine service Pt seen and examined at bedside. No acute events overnight. Resting comfortably in bed. Objective - Vital Signs/Intake and Output Vital Signs (last 24 hours): Temp Pulse Resp BP Pulse Ox 98.1 F 88 20 115/85 99 01/29/17 16:00 01/29/17 16:00 01/29/17 16:00 01/29/17 16:00 01/29/17 16:00 Intake and Output: 01/29/17 01/29/17 06:59 18:59 Intake Total 1660 880 Output Total 300 1050 Balance 1360 -170 - Medications Medications: Current Medications Aspirin (Aspirin Chewable) 81 mg PEG DAILY [facility] Last Admin: 01/29/17 13:10 Dose: 81 mg Bethanechol Chloride (Urecholine) 50 mg PEG TID [facility] Last Admin: 01/29/17 15:55 Dose: 50 mg Carvedilol (Coreg) 3.125 mg PEG BID [facility] Last Admin: 01/29/17 13:10 Dose: 3.125 mg Clopidogrel Bisulfate (Plavix) 75 mg PO DAILY [facility] Last Admin: 01/29/17 13:10 Dose: 75 mg Emollient Ointment (Vaseline Oint) 5 gm TOP BID PRN PRN Reason: Dry skin Last Admin: 01/26/17 11:46 Dose: 5 gm Enoxaparin Sodium (Lovenox) 40 mg SC DAILY [facility] Last Admin: 01/29/17 13:07 Dose: 40 mg Famotidine (Pepcid) 20 mg PEG BID [facility] Last Admin: 01/29/17 13:10 Dose: 20 mg Finasteride (Proscar) 5 mg PEG DAILY [facility] Last Admin: 01/29/17 13:11 Dose: 5 mg Guaifenesin (Robitussin) 200 mg PO Q4H PRN PRN Reason: Cough and congestion Last Admin: 01/26/17 10:37 Dose: 200 mg Levetiracetam (Keppra) 500 mg PEG BID [facility] Last Admin: 01/29/17 13:10 Dose: 500 mg Tamsulosin HCl (Flomax) 0.4 mg PO DAILY [facility] Last Admin: 01/29/17 13:10 Dose: 0.4 mg - Labs Labs: 01/26/17 07:13 01/26/17 07:13 PT 10.6 SECONDS (9.7-12.2) 11/24/15 14:10 INR 1.0 11/24/15 14:10 APTT 25 SECONDS (21-34) 11/24/15 14:10 - Constitutional Appears: Chronically Ill - Head Exam Head Exam: ATRAUMATIC, NORMOCEPHALIC - Neck Exam Additional comments: Trach in place, thick secretions noted - Respiratory Exam Respiratory Exam: Clear to Ausculation Bilateral Additional comments: On vent - Cardiovascular Exam Cardiovascular Exam: +S1, +S2 - GI/Abdominal Exam GI & Abdominal Exam: Soft, Normal Bowel Sounds Additional comments: PEG in place, Tube feeds on - Extremities Exam Extremities Exam: Pedal Edema - Skin Skin Exam: Dry, Warm Assessment and Plan - Assessment and Plan (Free Text) Assessment: Anoxic brain injury s/p cardiac arrest in 05/2015 no acute changes, continue current management PEG tube dysfunction- resolved IR placed new PEG 01/06, functioning appropriately UTI- resolved CBI discontinued 01/08, baker catheter removed, patient with condom catheter- voiding yellow/ slightly cloudy urine, will continue to monitor 12/30- Triple lumen Baker in place for irrigation, added neosporin to CBI Urine Culture 12/03/16 - Positive Kleb pneumo, sensitive to cipro - resolved. Off antibiotics now Urinary Retention 01/29: condom cath in place 01/28: condom catheter displaced, so difficult to measure accurate output, but patient not retaining urine 01/27: yesterday was straight cath'd with 60cc clear cherie urine. bladder scan done twice with minimal residual urine seen. Flomax 0.4mg PEG daily Proscar 5mg PEG daily continue Bethanecol 50mg PEG TID- started after persistent retention and found to be effective. monitor I's and O's check bladder scan for residual urine three times weekly Last bladder scan done 01/18 with 50cc residual Sacral Ulcers Small area stage II in upper gluteal cleft- pink base Stage I ulcer present on sacrum; area frequently alternates between Stage I and healed ulcer. Continue frequent turning, protective ointment and skin checks. 01/07- wound care saw patient, air mattress adjusted and protective ointment applied to sacrum Respiratory failure trach collar in place - normal resp pattern, thick secretions 01/12- starting mucinex for secretions CAD (coronary artery disease) s/p cardiac stents on 06/13/15 ASA 81mg via PEG daily Coreg 3.125mg PEG BID Plavix 75mg PO daily Seizures Keppra 500mg PEG BID for seizure prophylaxis Lower extremity edema Lasix via PEG as needed. 01/22- edema resolved 01/21- mild edema- giving 40mg via PEG 01/05 mild edema- given 40mg via PEG Hypernatremia- resolved increase free water flushes to 400cc q8h 01/26/17: Na of 139 labs 01/11 Na of 145 labs 01/19 sodium 142 f/u labs 01/26/17 Prophylactic measure Pepcid 20 mg PEG BID Lovenox 40mg SC daily SCDs and offloading boots continue to turn and reposition q2h Continue to monitor medication administrations and clinical presentation weekly labs- last drawn 01/26/17 <Nathaniel Beth - Last Filed: 03/03/17 21:57> Objective - Vital Signs/Intake and Output Vital Signs (last 24 hours): Temp Pulse Resp BP Pulse Ox 98.5 F 79 18 112/68 98 03/03/17 16:00 03/03/17 16:00 03/03/17 16:00 03/03/17 16:00 03/03/17 16:00 Intake and Output: 03/03/17 03/04/17 18:59 06:59 Intake Total 880 Output Total 200 Balance 680 - Medications Medications: Current Medications Aspirin (Aspirin Chewable) 81 mg PEG DAILY [facility] Last Admin: 03/03/17 09:12 Dose: 81 mg Bethanechol Chloride (Urecholine) 50 mg PEG TID [facility] Last Admin: 03/03/17 13:56 Dose: 50 mg Bisacodyl (Dulcolax) 5 mg PO Q72H PRN PRN Reason: Constipation Carvedilol (Coreg) 3.125 mg PEG BID [facility] Last Admin: 03/03/17 09:12 Dose: 3.125 mg Clopidogrel Bisulfate (Plavix) 75 mg PEG DAILY [facility] Last Admin: 03/03/17 09:12 Dose: 75 mg Emollient Ointment (Vaseline Oint) 5 gm TOP BID PRN PRN Reason: Dry skin Enoxaparin Sodium (Lovenox) 40 mg SC DAILY [facility] Last Admin: 03/03/17 09:12 Dose: 40 mg Famotidine (Pepcid) 20 mg PEG BID [facility] Last Admin: 03/03/17 09:12 Dose: 20 mg Finasteride (Proscar) 5 mg PEG DAILY [facility] Last Admin: 03/03/17 09:12 Dose: 5 mg Levetiracetam (Keppra) 500 mg PEG BID [facility] Last Admin: 03/03/17 09:11 Dose: 500 mg Tamsulosin HCl (Flomax) 0.4 mg PEG DAILY [facility] Last Admin: 03/03/17 09:12 Dose: 0.4 mg - Labs Labs: 03/02/17 06:03 03/02/17 06:03 PT 10.6 SECONDS (9.7-12.2) 11/24/15 14:10 INR 1.0 11/24/15 14:10 APTT 25 SECONDS (21-34) 11/24/15 14:10 Attending/Attestation - Attestation I have personally seen and examined this patient.: Yes I have fully participated in the care of the patient.: Yes I have reviewed all pertinent clinical information, including history, physical exam and plan: Yes
[2017-01-30] MEDS: levETIRAcetam 100 mg/ml (5ml) Oral Syringe PEG SCH ×2 (10:19→17:57)
[2017-01-30] MEDS: Enoxaparin 40 mg Syringe SC SCH (10:20)
--- NOTE | 2017-01-30 15:43 | CP.PCM.PN ---
<Thomas Aden - Last Filed: 01/30/17 15:45> Subjective - Date & Time of Evaluation Date of Evaluation: 01/30/17 Time of Evaluation: 14:10 - Subjective Subjective: Patient seen and examined at bedside and is unable to provide and ROS due to anoxic brain injury Objective - Vital Signs/Intake and Output Vital Signs (last 24 hours): Temp Pulse Resp BP Pulse Ox 98.5 F 84 20 112/73 100 01/30/17 08:28 01/30/17 08:28 01/30/17 08:28 01/30/17 08:28 01/30/17 08:28 Intake and Output: 01/30/17 01/30/17 06:59 18:59 Intake Total 780 Output Total 400 Balance 380 - Medications Medications: Current Medications Aspirin (Aspirin Chewable) 81 mg PEG DAILY [facility] Last Admin: 01/30/17 10:18 Dose: 81 mg Bethanechol Chloride (Urecholine) 50 mg PEG TID [facility] Last Admin: 01/30/17 13:40 Dose: 50 mg Carvedilol (Coreg) 3.125 mg PEG BID [facility] Last Admin: 01/30/17 10:18 Dose: 3.125 mg Clopidogrel Bisulfate (Plavix) 75 mg PO DAILY [facility] Last Admin: 01/30/17 10:19 Dose: 75 mg Emollient Ointment (Vaseline Oint) 5 gm TOP BID PRN PRN Reason: Dry skin Last Admin: 01/26/17 11:46 Dose: 5 gm Enoxaparin Sodium (Lovenox) 40 mg SC DAILY [facility] Last Admin: 01/30/17 10:20 Dose: 40 mg Famotidine (Pepcid) 20 mg PEG BID [facility] Last Admin: 01/30/17 10:23 Dose: 20 mg Finasteride (Proscar) 5 mg PEG DAILY [facility] Last Admin: 01/30/17 10:19 Dose: 5 mg Guaifenesin (Robitussin) 200 mg PO Q4H PRN PRN Reason: Cough and congestion Last Admin: 01/26/17 10:37 Dose: 200 mg Levetiracetam (Keppra) 500 mg PEG BID [facility] Last Admin: 01/30/17 10:19 Dose: 500 mg Tamsulosin HCl (Flomax) 0.4 mg PO DAILY [facility] Last Admin: 01/30/17 10:19 Dose: 0.4 mg - Labs Labs: 01/26/17 07:13 01/26/17 07:13 PT 10.6 SECONDS (9.7-12.2) 11/24/15 14:10 INR 1.0 11/24/15 14:10 APTT 25 SECONDS (21-34) 11/24/15 14:10 Assessment and Plan - Assessment and Plan (Free Text) Assessment: - Constitutional Appears: Chronically Ill - Head Exam Head Exam: ATRAUMATIC, NORMOCEPHALIC - Neck Exam Additional comments: Trach in place, thick secretions noted - Respiratory Exam Respiratory Exam: Clear to Ausculation Bilateral Additional comments: On vent - Cardiovascular Exam Cardiovascular Exam: +S1, +S2 - GI/Abdominal Exam GI & Abdominal Exam: Soft, Normal Bowel Sounds Additional comments: PEG in place, Tube feeds on - Extremities Exam Extremities Exam: Pedal Edema - Skin Skin Exam: Dry, Warm Assessment and Plan - Assessment and Plan (Free Text) Assessment: Anoxic brain injury s/p cardiac arrest in 05/2015 no acute changes, continue current management PEG tube dysfunction- resolved IR placed new PEG 01/06, functioning appropriately UTI- resolved CBI discontinued 01/08, baker catheter removed, patient with condom catheter- voiding yellow/ slightly cloudy urine, will continue to monitor 12/30- Triple lumen Baker in place for irrigation, added neosporin to CBI Urine Culture 12/03/16 - Positive Kleb pneumo, sensitive to cipro - resolved. Off antibiotics now Urinary Retention 01/29: condom cath in place 01/28: condom catheter displaced, so difficult to measure accurate output, but patient not retaining urine 01/27: yesterday was straight cath'd with 60cc clear cherie urine. bladder scan done twice with minimal residual urine seen. Flomax 0.4mg PEG daily Proscar 5mg PEG daily continue Bethanecol 50mg PEG TID- started after persistent retention and found to be effective. monitor I's and O's check bladder scan for residual urine three times weekly Last bladder scan done 01/18 with 50cc residual Sacral Ulcers Small area stage II in upper gluteal cleft- pink base Stage I ulcer present on sacrum; area frequently alternates between Stage I and healed ulcer. Continue frequent turning, protective ointment and skin checks. 01/07- wound care saw patient, air mattress adjusted and protective ointment applied to sacrum Respiratory failure trach collar in place - normal resp pattern, thick secretions 01/12- starting mucinex for secretions CAD (coronary artery disease) s/p cardiac stents on 06/13/15 ASA 81mg via PEG daily Coreg 3.125mg PEG BID Plavix 75mg PO daily Seizures Keppra 500mg PEG BID for seizure prophylaxis Lower extremity edema Lasix via PEG as needed. 01/22- edema resolved 01/21- mild edema- giving 40mg via PEG 01/05 mild edema- given 40mg via PEG Hypernatremia- resolved increase free water flushes to 400cc q8h 01/26/17: Na of 139 labs 01/11 Na of 145 labs 01/19 sodium 142 f/u labs 01/26/17 Prophylactic measure Pepcid 20 mg PEG BID Lovenox 40mg SC daily SCDs and offloading boots continue to turn and reposition q2h Continue to monitor medication administrations and clinical presentation weekly labs- last drawn 01/26/17 <Nathaniel Beth - Last Filed: 03/03/17 21:59> Objective - Vital Signs/Intake and Output Vital Signs (last 24 hours): Temp Pulse Resp BP Pulse Ox 98.5 F 79 18 112/68 98 03/03/17 16:00 03/03/17 16:00 03/03/17 16:00 03/03/17 16:00 03/03/17 16:00 Intake and Output: 03/03/17 03/04/17 18:59 06:59 Intake Total 880 Output Total 200 Balance 680 - Medications Medications: Current Medications Aspirin (Aspirin Chewable) 81 mg PEG DAILY [facility] Last Admin: 03/03/17 09:12 Dose: 81 mg Bethanechol Chloride (Urecholine) 50 mg PEG TID [facility] Last Admin: 03/03/17 13:56 Dose: 50 mg Bisacodyl (Dulcolax) 5 mg PO Q72H PRN PRN Reason: Constipation Carvedilol (Coreg) 3.125 mg PEG BID [facility] Last Admin: 03/03/17 09:12 Dose: 3.125 mg Clopidogrel Bisulfate (Plavix) 75 mg PEG DAILY [facility] Last Admin: 03/03/17 09:12 Dose: 75 mg Emollient Ointment (Vaseline Oint) 5 gm TOP BID PRN PRN Reason: Dry skin Enoxaparin Sodium (Lovenox) 40 mg SC DAILY [facility] Last Admin: 03/03/17 09:12 Dose: 40 mg Famotidine (Pepcid) 20 mg PEG BID [facility] Last Admin: 03/03/17 09:12 Dose: 20 mg Finasteride (Proscar) 5 mg PEG DAILY [facility] Last Admin: 03/03/17 09:12 Dose: 5 mg Levetiracetam (Keppra) 500 mg PEG BID [facility] Last Admin: 03/03/17 09:11 Dose: 500 mg Tamsulosin HCl (Flomax) 0.4 mg PEG DAILY [facility] Last Admin: 03/03/17 09:12 Dose: 0.4 mg - Labs Labs: 03/02/17 06:03 03/02/17 06:03 PT 10.6 SECONDS (9.7-12.2) 11/24/15 14:10 INR 1.0 11/24/15 14:10 APTT 25 SECONDS (21-34) 11/24/15 14:10 Attending/Attestation - Attestation I have personally seen and examined this patient.: Yes I have fully participated in the care of the patient.: Yes I have reviewed all pertinent clinical information, including history, physical exam and plan: Yes
--- NOTE | 2017-01-31 00:30 | CP.PCM.PN ---
<BarringtonMichel - Last Filed: 01/31/17 00:28> Subjective - Date & Time of Evaluation Date of Evaluation: 01/31/17 Time of Evaluation: 00:28 - Subjective Subjective: PGY-1 note for medicine service Pt seen and examined at bedside. Observed to be resting comfortably in bed. Objective - Vital Signs/Intake and Output Vital Signs (last 24 hours): Temp Pulse Resp BP Pulse Ox 98.5 F 84 20 112/73 100 01/30/17 08:28 01/30/17 08:28 01/30/17 08:28 01/30/17 08:28 01/30/17 08:28 Intake and Output: 01/30/17 01/31/17 18:59 06:59 Intake Total 880 880 Output Total 750 400 Balance 130 480 - Medications Medications: Current Medications Aspirin (Aspirin Chewable) 81 mg PEG DAILY [facility] Last Admin: 01/30/17 10:18 Dose: 81 mg Bethanechol Chloride (Urecholine) 50 mg PEG TID [facility] Last Admin: 01/30/17 17:57 Dose: 50 mg Carvedilol (Coreg) 3.125 mg PEG BID [facility] Last Admin: 01/30/17 17:57 Dose: 3.125 mg Clopidogrel Bisulfate (Plavix) 75 mg PO DAILY [facility] Last Admin: 01/30/17 10:19 Dose: 75 mg Emollient Ointment (Vaseline Oint) 5 gm TOP BID PRN PRN Reason: Dry skin Last Admin: 01/26/17 11:46 Dose: 5 gm Enoxaparin Sodium (Lovenox) 40 mg SC DAILY [facility] Last Admin: 01/30/17 10:20 Dose: 40 mg Famotidine (Pepcid) 20 mg PEG BID [facility] Last Admin: 01/30/17 17:57 Dose: 20 mg Finasteride (Proscar) 5 mg PEG DAILY [facility] Last Admin: 01/30/17 10:19 Dose: 5 mg Guaifenesin (Robitussin) 200 mg PO Q4H PRN PRN Reason: Cough and congestion Last Admin: 01/26/17 10:37 Dose: 200 mg Levetiracetam (Keppra) 500 mg PEG BID [facility] Last Admin: 01/30/17 17:57 Dose: 500 mg Tamsulosin HCl (Flomax) 0.4 mg PO DAILY [facility] Last Admin: 01/30/17 10:19 Dose: 0.4 mg - Labs Labs: 01/26/17 07:13 01/26/17 07:13 PT 10.6 SECONDS (9.7-12.2) 11/24/15 14:10 INR 1.0 11/24/15 14:10 APTT 25 SECONDS (21-34) 11/24/15 14:10 - Constitutional Appears: Chronically Ill - Head Exam Head Exam: ATRAUMATIC, NORMOCEPHALIC - Eye Exam Eye Exam: Normal appearance Pupil Exam: PERRL - Neck Exam Additional comments: Trach in place. Secretions noted - Respiratory Exam Respiratory Exam: Clear to Ausculation Bilateral, NORMAL BREATHING PATTERN - Cardiovascular Exam Cardiovascular Exam: +S1, +S2 - GI/Abdominal Exam GI & Abdominal Exam: Soft, Normal Bowel Sounds - Skin Skin Exam: Dry, Warm Assessment and Plan - Assessment and Plan (Free Text) Assessment: Anoxic brain injury s/p cardiac arrest in 05/2015 no acute changes, continue current management PEG tube dysfunction- resolved IR placed new PEG 01/06, functioning appropriately UTI- resolved CBI discontinued 01/08, baker catheter removed, patient with condom catheter- voiding yellow/ slightly cloudy urine, will continue to monitor 12/30- Triple lumen Baker in place for irrigation, added neosporin to CBI Urine Culture 12/03/16 - Positive Kleb pneumo, sensitive to cipro - resolved. Off antibiotics now Urinary Retention 01/29: condom cath in place 01/28: condom catheter displaced, so difficult to measure accurate output, but patient not retaining urine 01/27: yesterday was straight cath'd with 60cc clear cherie urine. bladder scan done twice with minimal residual urine seen. Flomax 0.4mg PEG daily Proscar 5mg PEG daily continue Bethanecol 50mg PEG TID- started after persistent retention and found to be effective. monitor I's and O's check bladder scan for residual urine three times weekly Last bladder scan done 01/18 with 50cc residual Sacral Ulcers Small area stage II in upper gluteal cleft- pink base Stage I ulcer present on sacrum; area frequently alternates between Stage I and healed ulcer. Continue frequent turning, protective ointment and skin checks. 01/07- wound care saw patient, air mattress adjusted and protective ointment applied to sacrum Respiratory failure trach collar in place - normal resp pattern, thick secretions 01/12- starting mucinex for secretions CAD (coronary artery disease) s/p cardiac stents on 06/13/15 ASA 81mg via PEG daily Coreg 3.125mg PEG BID Plavix 75mg PO daily Seizures Keppra 500mg PEG BID for seizure prophylaxis Lower extremity edema Lasix via PEG as needed. 01/22- edema resolved 01/21- mild edema- giving 40mg via PEG 01/05 mild edema- given 40mg via PEG Hypernatremia- resolved increase free water flushes to 400cc q8h 01/26/17: Na of 139 labs 01/11 Na of 145 labs 01/19 sodium 142 f/u labs 01/26/17 Prophylactic measure Pepcid 20 mg PEG BID Lovenox 40mg SC daily SCDs and offloading boots continue to turn and reposition q2h Continue to monitor medication administrations and clinical presentation weekly labs- last drawn 01/26/17 <Colleen Braswell V - Last Filed: 02/05/17 10:50> Objective - Vital Signs/Intake and Output Vital Signs (last 24 hours): Temp Pulse Resp BP Pulse Ox 97.8 F 77 20 122/66 97 02/05/17 08:00 02/05/17 08:00 02/05/17 08:00 02/05/17 08:00 02/05/17 08:00 Intake and Output: 02/05/17 02/05/17 06:59 18:59 Intake Total 1740 Output Total 700 Balance 1040 - Medications Medications: Current Medications Aspirin (Aspirin Chewable) 81 mg PEG DAILY [facility] Last Admin: 02/04/17 13:09 Dose: 81 mg Bethanechol Chloride (Urecholine) 50 mg PEG TID [facility] Last Admin: 02/04/17 18:27 Dose: 50 mg Carvedilol (Coreg) 3.125 mg PEG BID [facility] Last Admin: 02/04/17 18:27 Dose: 3.125 mg Clopidogrel Bisulfate (Plavix) 75 mg PEG DAILY [facility] Last Admin: 02/04/17 09:21 Dose: 75 mg Emollient Ointment (Vaseline Oint) 5 gm TOP BID PRN PRN Reason: Dry skin Last Admin: 01/31/17 11:27 Dose: 5 gm Enoxaparin Sodium (Lovenox) 40 mg SC DAILY [facility] Last Admin: 02/04/17 09:22 Dose: 40 mg Famotidine (Pepcid) 20 mg PEG BID [facility] Last Admin: 02/04/17 18:27 Dose: 20 mg Finasteride (Proscar) 5 mg PEG DAILY [facility] Last Admin: 02/04/17 09:21 Dose: 5 mg Guaifenesin (Robitussin) 200 mg PO Q4H PRN PRN Reason: Cough and congestion Last Admin: 02/02/17 11:40 Dose: 200 mg Levetiracetam (Keppra) 500 mg PEG BID [facility] Last Admin: 02/04/17 18:26 Dose: 500 mg Tamsulosin HCl (Flomax) 0.4 mg PEG DAILY [facility] Last Admin: 02/04/17 16:05 Dose: 0.4 mg - Labs Labs: 02/02/17 07:26 02/02/17 07:26 PT 10.6 SECONDS (9.7-12.2) 11/24/15 14:10 INR 1.0 11/24/15 14:10 APTT 25 SECONDS (21-34) 11/24/15 14:10 Attending/Attestation - Attestation I have personally seen and examined this patient.: Yes I have fully participated in the care of the patient.: Yes I have reviewed all pertinent clinical information, including history, physical exam and plan: Yes
[2017-01-31] MEDS: Enoxaparin 40 mg Syringe SC SCH (11:24)
[2017-01-31] MEDS: levETIRAcetam 100 mg/ml (5ml) Oral Syringe PEG SCH ×2 (11:25→18:26)
[2017-01-31] MEDS: guaiFENesin 200 mg/10 ml Syrup UD PO PRN (11:25)
[2017-01-31] MEDS: Petrolatum Oint Foilpak (5 gm) TOP PRN (11:27)
--- NOTE | 2017-02-01 00:39 | CP.PCM.PN ---
<Michel Ferris - Last Filed: 02/01/17 00:37> Subjective - Date & Time of Evaluation Date of Evaluation: 02/01/17 Time of Evaluation: 00:37 - Subjective Subjective: PGY-1 note for medicine service Pt seen and examined at bedside. Pt observed to be resting comfortably. Per nurse, no acute events. Objective - Vital Signs/Intake and Output Vital Signs (last 24 hours): Temp Pulse Resp BP Pulse Ox 97.5 F L 73 20 126/83 99 01/31/17 23:53 01/31/17 23:53 01/31/17 23:53 01/31/17 23:53 01/31/17 23:53 Intake and Output: 01/31/17 02/01/17 18:59 07:59 Intake Total 880 780 Output Total 850 275 Balance 30 505 - Medications Medications: Current Medications Aspirin (Aspirin Chewable) 81 mg PEG DAILY [facility] Last Admin: 01/31/17 11:25 Dose: 81 mg Bethanechol Chloride (Urecholine) 50 mg PEG TID [facility] Last Admin: 01/31/17 18:27 Dose: 50 mg Carvedilol (Coreg) 3.125 mg PEG BID [facility] Last Admin: 01/31/17 18:27 Dose: 3.125 mg Clopidogrel Bisulfate (Plavix) 75 mg PO DAILY [facility] Last Admin: 01/31/17 11:25 Dose: 75 mg Emollient Ointment (Vaseline Oint) 5 gm TOP BID PRN PRN Reason: Dry skin Last Admin: 01/31/17 11:27 Dose: 5 gm Enoxaparin Sodium (Lovenox) 40 mg SC DAILY [facility] Last Admin: 01/31/17 11:24 Dose: 40 mg Famotidine (Pepcid) 20 mg PEG BID [facility] Last Admin: 01/31/17 18:26 Dose: 20 mg Finasteride (Proscar) 5 mg PEG DAILY [facility] Last Admin: 01/31/17 11:26 Dose: 5 mg Guaifenesin (Robitussin) 200 mg PO Q4H PRN PRN Reason: Cough and congestion Last Admin: 01/31/17 11:25 Dose: 200 mg Levetiracetam (Keppra) 500 mg PEG BID [facility] Last Admin: 01/31/17 18:26 Dose: 500 mg Tamsulosin HCl (Flomax) 0.4 mg PO DAILY [facility] Last Admin: 01/31/17 11:25 Dose: 0.4 mg - Labs Labs: 01/26/17 07:13 01/26/17 07:13 PT 10.6 SECONDS (9.7-12.2) 11/24/15 14:10 INR 1.0 11/24/15 14:10 APTT 25 SECONDS (21-34) 11/24/15 14:10 - Constitutional Appears: Chronically Ill - Head Exam Head Exam: ATRAUMATIC, NORMOCEPHALIC - Neck Exam Additional comments: trach in place. Thick secretions noted - Respiratory Exam Respiratory Exam: Rales Additional comments: On vent - Cardiovascular Exam Cardiovascular Exam: +S1, +S2 - GI/Abdominal Exam GI & Abdominal Exam: Soft, Normal Bowel Sounds - Exam Additional comments: Condom catheter in place. Yellow colored urine in bag - Skin Skin Exam: Dry, Warm Assessment and Plan - Assessment and Plan (Free Text) Assessment: Anoxic brain injury s/p cardiac arrest in 05/2015 no acute changes, continue current management PEG tube dysfunction- resolved IR placed new PEG 01/06, functioning appropriately UTI- resolved CBI discontinued 01/08, baker catheter removed, patient with condom catheter- voiding yellow/ slightly cloudy urine, will continue to monitor 12/30- Triple lumen Baker in place for irrigation, added neosporin to CBI Urine Culture 12/03/16 - Positive Kleb pneumo, sensitive to cipro - resolved. Off antibiotics now Urinary Retention 01/29: condom cath in place 01/28: condom catheter displaced, so difficult to measure accurate output, but patient not retaining urine 01/27: yesterday was straight cath'd with 60cc clear cherie urine. bladder scan done twice with minimal residual urine seen. Flomax 0.4mg PEG daily Proscar 5mg PEG daily continue Bethanecol 50mg PEG TID- started after persistent retention and found to be effective. monitor I's and O's check bladder scan for residual urine three times weekly Last bladder scan done 01/18 with 50cc residual Sacral Ulcers Small area stage II in upper gluteal cleft- pink base Stage I ulcer present on sacrum; area frequently alternates between Stage I and healed ulcer. Continue frequent turning, protective ointment and skin checks. 01/07- wound care saw patient, air mattress adjusted and protective ointment applied to sacrum Respiratory failure trach collar in place - normal resp pattern, thick secretions 01/12- starting mucinex for secretions CAD (coronary artery disease) s/p cardiac stents on 06/13/15 ASA 81mg via PEG daily Coreg 3.125mg PEG BID Plavix 75mg PO daily Seizures Keppra 500mg PEG BID for seizure prophylaxis Lower extremity edema Lasix via PEG as needed. 01/22- edema resolved 01/21- mild edema- giving 40mg via PEG 01/05 mild edema- given 40mg via PEG Hypernatremia- resolved increase free water flushes to 400cc q8h 01/26/17: Na of 139 labs 01/11 Na of 145 labs 01/19 sodium 142 f/u labs 01/26/17 Prophylactic measure Pepcid 20 mg PEG BID Lovenox 40mg SC daily SCDs and offloading boots continue to turn and reposition q2h Continue to monitor medication administrations and clinical presentation weekly labs- last drawn 01/26/17 <Nathaniel Beth - Last Filed: 02/01/17 17:19> Objective - Vital Signs/Intake and Output Vital Signs (last 24 hours): Temp Pulse Resp BP Pulse Ox 98.1 F 83 20 115/78 99 02/01/17 15:27 02/01/17 15:27 02/01/17 15:27 02/01/17 15:27 02/01/17 15:27 Intake and Output: 02/01/17 02/01/17 06:59 18:59 Intake Total 880 Output Total 700 Balance 180 - Medications Medications: Current Medications Aspirin (Aspirin Chewable) 81 mg PEG DAILY [facility] Last Admin: 02/01/17 09:46 Dose: 81 mg Bethanechol Chloride (Urecholine) 50 mg PEG TID [facility] Last Admin: 02/01/17 14:20 Dose: 50 mg Carvedilol (Coreg) 3.125 mg PEG BID [facility] Last Admin: 02/01/17 09:46 Dose: 3.125 mg Clopidogrel Bisulfate (Plavix) 75 mg PO DAILY [facility] Last Admin: 02/01/17 09:46 Dose: 75 mg Emollient Ointment (Vaseline Oint) 5 gm TOP BID PRN PRN Reason: Dry skin Last Admin: 01/31/17 11:27 Dose: 5 gm Enoxaparin Sodium (Lovenox) 40 mg SC DAILY [facility] Last Admin: 02/01/17 14:20 Dose: 40 mg Famotidine (Pepcid) 20 mg PEG BID [facility] Last Admin: 02/01/17 09:46 Dose: 20 mg Finasteride (Proscar) 5 mg PEG DAILY [facility] Last Admin: 02/01/17 09:53 Dose: 5 mg Guaifenesin (Robitussin) 200 mg PO Q4H PRN PRN Reason: Cough and congestion Last Admin: 02/01/17 09:46 Dose: 200 mg Levetiracetam (Keppra) 500 mg PEG BID [facility] Last Admin: 02/01/17 09:53 Dose: 500 mg Tamsulosin HCl (Flomax) 0.4 mg PO DAILY [facility] Last Admin: 02/01/17 09:46 Dose: 0.4 mg - Labs Labs: 01/26/17 07:13 01/26/17 07:13 PT 10.6 SECONDS (9.7-12.2) 11/24/15 14:10 INR 1.0 11/24/15 14:10 APTT 25 SECONDS (21-34) 11/24/15 14:10 Attending/Attestation - Attestation I have personally seen and examined this patient.: Yes I have fully participated in the care of the patient.: Yes I have reviewed all pertinent clinical information, including history, physical exam and plan: Yes Notes (Text): Patient admitted after cardiac arrest, with ensuing anoxic encephalopathy; prolonged hospital course due to inability to find placement; Active issues: Stage I-II sacral decubitus ulcer - At top of sacral crease; today looks improved since last week; continue frequent re-positioning and protective ointment; Hypernatremia - Resolved per labs last week; continue 400 cc free water flushes q8h; CAD s/p WILLIE - continue ASA/plavix, coreg and crestor; Urinary retention - Intermittent, currently resolved; on bethanacol, continue. Recurrent UTI - s/p bladder irrigation; no baker currently; monitor for signs of sepsis/infection/ 02/01/17 17:19
[2017-02-01] MEDS: guaiFENesin 200 mg/10 ml Syrup UD PO PRN (09:46)
[2017-02-01] MEDS: levETIRAcetam 100 mg/ml (5ml) Oral Syringe PEG SCH ×2 (09:53→17:51)
[2017-02-01] MEDS: Enoxaparin 40 mg Syringe SC SCH (14:20)
[2017-02-02 08:05] LABS: ALBUMIN 3.3 g/dL (3.5-5.0)
[2017-02-02 08:08] LABS: ALB/GLOB RATIO 0.7 (1.0-2.1); ALT/SGPT 64 U/L (21-72); AST/SGOT 32 U/L (17-59); BLOOD UREA NITROGEN 19 mg/dL (9-20); GFR NON-AFRICAN AMERICAN > 60
[2017-02-02 08:09] LABS: BASO % 0.4 % (0.0-2.0); CALCIUM 8.6 mg/dl (8.6-10.4); EOS # 0.4 K/uL (0.0-0.7); EOS % 4.3 % (0.0-4.0); HEMOGLOBIN 11.7 g/dL (12.0-18.0); LYMPH # 1.9 K/uL (1.0-4.3); LYMPH % 21.9 % (20.0-40.0); MEAN CELL VOLUME 87.3 fL (80.0-94.0); MEAN CORPUSCULAR HEMOGLOBIN 29.2 pg (27.0-31.0); MEAN CORPUSCULAR HGB CONC 33.5 g/dL (33.0-37.0); MEAN PLATELET VOLUME 9.1 fL (7.2-11.7); MONO # 1.1 K/uL (0.0-0.8); MONO % 12.1 % (0.0-10.0); NEUT # 5.3 K/uL (1.8-7.0); NEUT % 61.3 % (50.0-75.0); RBC 4.01 Mil/uL (4.40-5.90); RED CELL DISTRIBUTION WIDTH 15.7 % (11.5-14.5); WHITE BLOOD COUNT 8.7 K/uL (4.8-10.8)
[2017-02-02] MEDS: levETIRAcetam 100 mg/ml (5ml) Oral Syringe PEG SCH ×2 (11:40→17:37)
[2017-02-02] MEDS: guaiFENesin 200 mg/10 ml Syrup UD PO PRN (11:40)
[2017-02-02] MEDS: Enoxaparin 40 mg Syringe SC SCH (11:41)
--- NOTE | 2017-02-02 17:54 | CP.PCM.PN ---
<BarringtonMichel - Last Filed: 02/02/17 17:51> Subjective - Date & Time of Evaluation Date of Evaluation: 02/02/17 Time of Evaluation: 17:52 - Subjective Subjective: PGY-1 note for medicine service Pt seen and examined at bedside. No acute events per nursing staff Objective - Vital Signs/Intake and Output Vital Signs (last 24 hours): Temp Pulse Resp BP Pulse Ox 98 F 74 20 127/76 99 02/02/17 16:00 02/02/17 16:00 02/02/17 16:00 02/02/17 16:00 02/02/17 16:00 Intake and Output: 02/02/17 02/02/17 06:59 18:59 Intake Total 1360 480 Output Total 500 400 Balance 860 80 - Medications Medications: Current Medications Aspirin (Aspirin Chewable) 81 mg PEG DAILY [facility] Last Admin: 02/02/17 11:41 Dose: 81 mg Bethanechol Chloride (Urecholine) 50 mg PEG TID [facility] Last Admin: 02/02/17 17:36 Dose: 50 mg Carvedilol (Coreg) 3.125 mg PEG BID [facility] Last Admin: 02/02/17 17:37 Dose: 3.125 mg Clopidogrel Bisulfate (Plavix) 75 mg PO DAILY [facility] Last Admin: 02/02/17 11:40 Dose: 75 mg Emollient Ointment (Vaseline Oint) 5 gm TOP BID PRN PRN Reason: Dry skin Last Admin: 01/31/17 11:27 Dose: 5 gm Enoxaparin Sodium (Lovenox) 40 mg SC DAILY [facility] Last Admin: 02/02/17 11:41 Dose: 40 mg Famotidine (Pepcid) 20 mg PEG BID [facility] Last Admin: 02/02/17 17:37 Dose: 20 mg Finasteride (Proscar) 5 mg PEG DAILY [facility] Last Admin: 02/02/17 11:40 Dose: 5 mg Guaifenesin (Robitussin) 200 mg PO Q4H PRN PRN Reason: Cough and congestion Last Admin: 02/02/17 11:40 Dose: 200 mg Levetiracetam (Keppra) 500 mg PEG BID [facility] Last Admin: 02/02/17 17:37 Dose: 500 mg Tamsulosin HCl (Flomax) 0.4 mg PO DAILY [facility] Last Admin: 02/02/17 11:41 Dose: 0.4 mg - Labs Labs: 02/02/17 07:26 02/02/17 07:26 PT 10.6 SECONDS (9.7-12.2) 11/24/15 14:10 INR 1.0 11/24/15 14:10 APTT 25 SECONDS (21-34) 11/24/15 14:10 - Constitutional Appears: Chronically Ill - Head Exam Head Exam: ATRAUMATIC, NORMOCEPHALIC - ENT Exam ENT Exam: Mucous Membranes Moist - Respiratory Exam Respiratory Exam: Rhonchi, NORMAL BREATHING PATTERN Additional comments: On vent - Cardiovascular Exam Cardiovascular Exam: +S1, +S2 - GI/Abdominal Exam GI & Abdominal Exam: Soft, Normal Bowel Sounds - Exam Additional comments: Condom cath on and draining - Extremities Exam Extremities Exam: Full ROM, Normal Inspection - Skin Skin Exam: Dry, Warm Assessment and Plan - Assessment and Plan (Free Text) Assessment: Anoxic brain injury s/p cardiac arrest in 05/2015 no acute changes, continue current management PEG tube dysfunction- resolved IR placed new PEG 01/06, functioning appropriately UTI- resolved CBI discontinued 01/08, baker catheter removed, patient with condom catheter- voiding yellow/ slightly cloudy urine, will continue to monitor 12/30- Triple lumen Baker in place for irrigation, added neosporin to CBI Urine Culture 12/03/16 - Positive Kleb pneumo, sensitive to cipro - resolved. Off antibiotics now Urinary Retention 01/29: condom cath in place 01/28: condom catheter displaced, so difficult to measure accurate output, but patient not retaining urine 01/27: yesterday was straight cath'd with 60cc clear cherie urine. bladder scan done twice with minimal residual urine seen. Flomax 0.4mg PEG daily Proscar 5mg PEG daily continue Bethanecol 50mg PEG TID- started after persistent retention and found to be effective. monitor I's and O's check bladder scan for residual urine three times weekly Last bladder scan done 01/18 with 50cc residual Sacral Ulcers Small area stage II in upper gluteal cleft- pink base Stage I ulcer present on sacrum; area frequently alternates between Stage I and healed ulcer. Continue frequent turning, protective ointment and skin checks. 01/07- wound care saw patient, air mattress adjusted and protective ointment applied to sacrum Respiratory failure trach collar in place - normal resp pattern, thick secretions 01/12- starting mucinex for secretions CAD (coronary artery disease) s/p cardiac stents on 06/13/15 ASA 81mg via PEG daily Coreg 3.125mg PEG BID Plavix 75mg PO daily Seizures Keppra 500mg PEG BID for seizure prophylaxis Lower extremity edema Lasix via PEG as needed. 01/22- edema resolved 01/21- mild edema- giving 40mg via PEG 01/05 mild edema- given 40mg via PEG Hypernatremia- resolved increase free water flushes to 400cc q8h 01/26/17: Na of 139 labs 01/11 Na of 145 labs 01/19 sodium 142 f/u labs 01/26/17 Prophylactic measure Pepcid 20 mg PEG BID Lovenox 40mg SC daily SCDs and offloading boots continue to turn and reposition q2h Continue to monitor medication administrations and clinical presentation weekly labs- last drawn 02/02/17 <Colleen Braswell V - Last Filed: 02/02/17 19:51> Objective - Vital Signs/Intake and Output Vital Signs (last 24 hours): Temp Pulse Resp BP Pulse Ox 98 F 74 20 127/76 99 02/02/17 16:00 02/02/17 16:00 02/02/17 16:00 02/02/17 16:00 02/02/17 16:00 Intake and Output: 02/02/17 02/03/17 18:59 06:59 Intake Total 480 Output Total 400 Balance 80 - Medications Medications: Current Medications Aspirin (Aspirin Chewable) 81 mg PEG DAILY [facility] Last Admin: 02/02/17 11:41 Dose: 81 mg Bethanechol Chloride (Urecholine) 50 mg PEG TID [facility] Last Admin: 02/02/17 17:36 Dose: 50 mg Carvedilol (Coreg) 3.125 mg PEG BID [facility] Last Admin: 02/02/17 17:37 Dose: 3.125 mg Clopidogrel Bisulfate (Plavix) 75 mg PO DAILY [facility] Last Admin: 02/02/17 11:40 Dose: 75 mg Emollient Ointment (Vaseline Oint) 5 gm TOP BID PRN PRN Reason: Dry skin Last Admin: 01/31/17 11:27 Dose: 5 gm Enoxaparin Sodium (Lovenox) 40 mg SC DAILY [facility] Last Admin: 02/02/17 11:41 Dose: 40 mg Famotidine (Pepcid) 20 mg PEG BID [facility] Last Admin: 02/02/17 17:37 Dose: 20 mg Finasteride (Proscar) 5 mg PEG DAILY [facility] Last Admin: 02/02/17 11:40 Dose: 5 mg Guaifenesin (Robitussin) 200 mg PO Q4H PRN PRN Reason: Cough and congestion Last Admin: 02/02/17 11:40 Dose: 200 mg Levetiracetam (Keppra) 500 mg PEG BID [facility] Last Admin: 02/02/17 17:37 Dose: 500 mg Tamsulosin HCl (Flomax) 0.4 mg PO DAILY [facility] Last Admin: 02/02/17 11:41 Dose: 0.4 mg - Labs Labs: 02/02/17 07:26 02/02/17 07:26 PT 10.6 SECONDS (9.7-12.2) 11/24/15 14:10 INR 1.0 11/24/15 14:10 APTT 25 SECONDS (21-34) 11/24/15 14:10 Attending/Attestation - Attestation I have personally seen and examined this patient.: Yes I have fully participated in the care of the patient.: Yes I have reviewed all pertinent clinical information, including history, physical exam and plan: Yes
[2017-02-03] MEDS: levETIRAcetam 100 mg/ml (5ml) Oral Syringe PEG SCH ×2 (09:49→20:00)
[2017-02-03] MEDS: Enoxaparin 40 mg Syringe SC SCH (09:49)
--- NOTE | 2017-02-03 13:59 | CP.PCM.PN ---
<Michel Ferris - Last Filed: 02/03/17 13:56> Subjective - Date & Time of Evaluation Date of Evaluation: 02/03/17 Time of Evaluation: 13:56 - Subjective Subjective: PGY-1 note for medicine service Pt seen and examined at bedside. Observed to be resting comfortably on vent. Objective - Vital Signs/Intake and Output Vital Signs (last 24 hours): Temp Pulse Resp BP Pulse Ox 98.7 F 86 20 115/76 97 02/03/17 08:00 02/03/17 08:41 02/03/17 08:00 02/03/17 08:00 02/03/17 08:00 Intake and Output: 02/03/17 02/03/17 06:59 18:59 Intake Total 1730 880 Output Total 800 Balance 930 880 - Medications Medications: Current Medications Bethanechol Chloride (Urecholine) 50 mg PEG TID [facility] Last Admin: 02/03/17 13:08 Dose: 50 mg Emollient Ointment (Vaseline Oint) 5 gm TOP BID PRN PRN Reason: Dry skin Last Admin: 01/31/17 11:27 Dose: 5 gm Guaifenesin (Robitussin) 200 mg PO Q4H PRN PRN Reason: Cough and congestion Last Admin: 02/02/17 11:40 Dose: 200 mg Levetiracetam (Keppra) 500 mg PEG BID [facility] Last Admin: 02/03/17 09:49 Dose: 500 mg - Labs Labs: 02/02/17 07:26 02/02/17 07:26 PT 10.6 SECONDS (9.7-12.2) 11/24/15 14:10 INR 1.0 11/24/15 14:10 APTT 25 SECONDS (21-34) 11/24/15 14:10 - Constitutional Appears: Chronically Ill - Head Exam Head Exam: ATRAUMATIC, NORMOCEPHALIC - Eye Exam Eye Exam: Normal appearance - ENT Exam ENT Exam: Mucous Membranes Moist - Neck Exam Additional comments: Trach in place - Respiratory Exam Additional comments: On vent. Respiratory suctioned pt this morning. Less secretions now today - Cardiovascular Exam Cardiovascular Exam: +S1, +S2 - GI/Abdominal Exam GI & Abdominal Exam: Soft, Normal Bowel Sounds - Exam Additional comments: Condom cath in place - Extremities Exam Extremities Exam: Normal Capillary Refill - Neurological Exam Neurological Exam: Alert, Awake - Skin Skin Exam: Dry, Warm Assessment and Plan - Assessment and Plan (Free Text) Assessment: Anoxic brain injury s/p cardiac arrest in 05/2015 no acute changes, continue current management PEG tube dysfunction- resolved IR placed new PEG 01/06, functioning appropriately UTI- resolved CBI discontinued 01/08, baker catheter removed, patient with condom catheter- voiding yellow/ slightly cloudy urine, will continue to monitor 12/30- Triple lumen Baker in place for irrigation, added neosporin to CBI Urine Culture 12/03/16 - Positive Kleb pneumo, sensitive to cipro - resolved. Off antibiotics now Urinary Retention 01/29: condom cath in place 01/28: condom catheter displaced, so difficult to measure accurate output, but patient not retaining urine 01/27: yesterday was straight cath'd with 60cc clear cherie urine. bladder scan done twice with minimal residual urine seen. Flomax 0.4mg PEG daily Proscar 5mg PEG daily continue Bethanecol 50mg PEG TID- started after persistent retention and found to be effective. monitor I's and O's check bladder scan for residual urine three times weekly Last bladder scan done 01/18 with 50cc residual Sacral Ulcers Small area stage II in upper gluteal cleft- pink base Stage I ulcer present on sacrum; area frequently alternates between Stage I and healed ulcer. Continue frequent turning, protective ointment and skin checks. 01/07- wound care saw patient, air mattress adjusted and protective ointment applied to sacrum Respiratory failure trach collar in place - normal resp pattern, respiratory suctioned pt, improved 01/12- starting mucinex for secretions CAD (coronary artery disease) s/p cardiac stents on 06/13/15 ASA 81mg via PEG daily Coreg 3.125mg PEG BID Plavix 75mg PO daily Seizures Keppra 500mg PEG BID for seizure prophylaxis Lower extremity edema Lasix via PEG as needed. Hypernatremia- resolved increase free water flushes to 400cc q8h 01/26/17: Na of 139 labs 01/11 Na of 145 labs 01/19 sodium 142 f/u labs 01/26/17 Prophylactic measure Pepcid 20 mg PEG BID Lovenox 40mg SC daily SCDs and offloading boots continue to turn and reposition q2h Continue to monitor medication administrations and clinical presentation weekly labs- last drawn 02/02/17 <Colleen Braswell V - Last Filed: 02/03/17 18:53> Objective - Vital Signs/Intake and Output Vital Signs (last 24 hours): Temp Pulse Resp BP Pulse Ox 98.5 F 85 19 118/75 98 02/03/17 15:00 02/03/17 15:00 02/03/17 15:00 02/03/17 15:00 02/03/17 15:00 Intake and Output: 02/03/17 02/03/17 06:59 18:59 Intake Total 1730 880 Output Total 800 550 Balance 930 330 - Medications Medications: Current Medications Aspirin (Aspirin Chewable) 81 mg PEG DAILY [facility] Bethanechol Chloride (Urecholine) 50 mg PEG TID [facility] Last Admin: 02/03/17 13:08 Dose: 50 mg Carvedilol (Coreg) 3.125 mg PEG BID [facility] Clopidogrel Bisulfate (Plavix) 75 mg PEG DAILY [facility] Emollient Ointment (Vaseline Oint) 5 gm TOP BID PRN PRN Reason: Dry skin Last Admin: 01/31/17 11:27 Dose: 5 gm Enoxaparin Sodium (Lovenox) 40 mg SC DAILY [facility] Famotidine (Pepcid) 20 mg PEG BID [facility] Finasteride (Proscar) 5 mg PEG DAILY [facility] Guaifenesin (Robitussin) 200 mg PO Q4H PRN PRN Reason: Cough and congestion Last Admin: 02/02/17 11:40 Dose: 200 mg Levetiracetam (Keppra) 500 mg PEG BID [facility] Last Admin: 02/03/17 09:49 Dose: 500 mg Tamsulosin HCl (Flomax) 0.4 mg PEG DAILY [facility] - Labs Labs: 02/02/17 07:26 02/02/17 07:26 PT 10.6 SECONDS (9.7-12.2) 11/24/15 14:10 INR 1.0 11/24/15 14:10 APTT 25 SECONDS (21-34) 11/24/15 14:10 Attending/Attestation - Attestation I have personally seen and examined this patient.: Yes I have fully participated in the care of the patient.: Yes I have reviewed all pertinent clinical information, including history, physical exam and plan: Yes Notes (Text): patient seen, examined and case discussed with day-time resident. Patient admitted after cardiac arrest, with ensuing anoxic encephalopathy; prolonged hospital course due to inability to find placement; Active issues: Stage I-II sacral decubitus ulcer - At top of sacral crease; continue frequent re-positioning and protective ointment; Hypernatremia - Resolved per labs last week; continue 400 cc free water flushes q8h; CAD s/p WILLIE - continue ASA/plavix, coreg and crestor; Urinary retention - Intermittent, currently resolved; on bethanacol, continue; patient is urinating; has baker and Bladder PRN Recurrent UTI - s/p bladder irrigation; no baker currently; monitor for signs of sepsis/infection/
[2017-02-04] MEDS: levETIRAcetam 100 mg/ml (5ml) Oral Syringe PEG SCH ×2 (09:22→18:26)
[2017-02-04] MEDS: Enoxaparin 40 mg Syringe SC SCH (09:22)
--- NOTE | 2017-02-04 10:58 | CP.PCM.PN ---
<Michel Ferris - Last Filed: 02/04/17 10:52> Subjective - Date & Time of Evaluation Date of Evaluation: 02/04/17 Time of Evaluation: 10:53 - Subjective Subjective: PGY-1 note for medicine service Pt seen and examined at bedside. Discussed with nursing staff need for weekly bladder scan and repositioning for sacral ulcer care. No acute events overnight , baker draining. Objective - Vital Signs/Intake and Output Vital Signs (last 24 hours): Temp Pulse Resp BP Pulse Ox 98.2 F 72 19 127/78 100 02/04/17 07:55 02/04/17 07:55 02/04/17 07:55 02/04/17 07:55 02/04/17 07:55 Intake and Output: 02/04/17 02/04/17 06:59 18:59 Intake Total 1730 Output Total 700 Balance 1030 - Medications Medications: Current Medications Aspirin (Aspirin Chewable) 81 mg PEG DAILY [facility] Bethanechol Chloride (Urecholine) 50 mg PEG TID [facility] Last Admin: 02/04/17 09:22 Dose: 50 mg Carvedilol (Coreg) 3.125 mg PEG BID [facility] Last Admin: 02/04/17 09:21 Dose: 3.125 mg Clopidogrel Bisulfate (Plavix) 75 mg PEG DAILY [facility] Last Admin: 02/04/17 09:21 Dose: 75 mg Emollient Ointment (Vaseline Oint) 5 gm TOP BID PRN PRN Reason: Dry skin Last Admin: 01/31/17 11:27 Dose: 5 gm Enoxaparin Sodium (Lovenox) 40 mg SC DAILY [facility] Last Admin: 02/04/17 09:22 Dose: 40 mg Famotidine (Pepcid) 20 mg PEG BID [facility] Last Admin: 02/04/17 09:21 Dose: 20 mg Finasteride (Proscar) 5 mg PEG DAILY [facility] Last Admin: 02/04/17 09:21 Dose: 5 mg Guaifenesin (Robitussin) 200 mg PO Q4H PRN PRN Reason: Cough and congestion Last Admin: 02/02/17 11:40 Dose: 200 mg Levetiracetam (Keppra) 500 mg PEG BID [facility] Last Admin: 02/04/17 09:22 Dose: 500 mg Tamsulosin HCl (Flomax) 0.4 mg PEG DAILY [facility] - Labs Labs: 02/02/17 07:26 02/02/17 07:26 PT 10.6 SECONDS (9.7-12.2) 11/24/15 14:10 INR 1.0 11/24/15 14:10 APTT 25 SECONDS (21-34) 11/24/15 14:10 - Constitutional Appears: Chronically Ill - Head Exam Head Exam: ATRAUMATIC, NORMOCEPHALIC - Eye Exam Eye Exam: Normal appearance Pupil Exam: PERRL - ENT Exam ENT Exam: Mucous Membranes Moist - Neck Exam Additional comments: Trach in place, no secretions noted - Respiratory Exam Additional comments: On vent, secretions less. Clear to auscultation - Cardiovascular Exam Cardiovascular Exam: +S1, +S2 - GI/Abdominal Exam GI & Abdominal Exam: Soft, Normal Bowel Sounds - Back Exam Additional comments: Sacral ulcer healing - Skin Skin Exam: Dry, Warm Assessment and Plan - Assessment and Plan (Free Text) Assessment: Anoxic brain injury s/p cardiac arrest in 05/2015 no acute changes, continue current management PEG tube dysfunction- resolved IR placed new PEG 01/06, functioning appropriately UTI- resolved CBI discontinued 01/08, baker catheter removed, patient with condom catheter- voiding yellow/ slightly cloudy urine, will continue to monitor 12/30- Triple lumen Baker in place for irrigation, added neosporin to CBI Urine Culture 12/03/16 - Positive Kleb pneumo, sensitive to cipro - resolved. Off antibiotics now Urinary Retention 02/04: bladder scan today, f/u results 01/29: condom cath in place 01/28: condom catheter displaced, so difficult to measure accurate output, but patient not retaining urine 01/27: yesterday was straight cath'd with 60cc clear cherie urine. bladder scan done twice with minimal residual urine seen. Flomax 0.4mg PEG daily Proscar 5mg PEG daily continue Bethanecol 50mg PEG TID- started after persistent retention and found to be effective. monitor I's and O's check bladder scan for residual urine three times weekly Last bladder scan done 01/18 with 50cc residual Sacral Ulcers Small area stage II in upper gluteal cleft- pink base Stage I ulcer present on sacrum; area frequently alternates between Stage I and healed ulcer. Continue frequent turning, protective ointment and skin checks. 01/07- wound care saw patient, air mattress adjusted and protective ointment applied to sacrum Respiratory failure trach collar in place - normal resp pattern, respiratory suctioned pt, improved 01/12- starting mucinex for secretions CAD (coronary artery disease) s/p cardiac stents on 06/13/15 ASA 81mg via PEG daily Coreg 3.125mg PEG BID Plavix 75mg PO daily Seizures Keppra 500mg PEG BID for seizure prophylaxis Lower extremity edema Lasix via PEG as needed. Hypernatremia- resolved increase free water flushes to 400cc q8h 01/26/17: Na of 139 labs 01/11 Na of 145 labs 01/19 sodium 142 f/u labs 01/26/17 Prophylactic measure Pepcid 20 mg PEG BID Lovenox 40mg SC daily SCDs and offloading boots continue to turn and reposition q2h Continue to monitor medication administrations and clinical presentation weekly labs- last drawn 02/02/17 <Colleen Braswell V - Last Filed: 02/05/17 10:49> Objective - Vital Signs/Intake and Output Vital Signs (last 24 hours): Temp Pulse Resp BP Pulse Ox 97.8 F 77 20 122/66 97 02/05/17 08:00 02/05/17 08:00 02/05/17 08:00 02/05/17 08:00 02/05/17 08:00 Intake and Output: 02/05/17 02/05/17 06:59 18:59 Intake Total 1740 Output Total 700 Balance 1040 - Medications Medications: Current Medications Aspirin (Aspirin Chewable) 81 mg PEG DAILY [facility] Last Admin: 02/04/17 13:09 Dose: 81 mg Bethanechol Chloride (Urecholine) 50 mg PEG TID [facility] Last Admin: 02/04/17 18:27 Dose: 50 mg Carvedilol (Coreg) 3.125 mg PEG BID [facility] Last Admin: 02/04/17 18:27 Dose: 3.125 mg Clopidogrel Bisulfate (Plavix) 75 mg PEG DAILY [facility] Last Admin: 02/04/17 09:21 Dose: 75 mg Emollient Ointment (Vaseline Oint) 5 gm TOP BID PRN PRN Reason: Dry skin Last Admin: 01/31/17 11:27 Dose: 5 gm Enoxaparin Sodium (Lovenox) 40 mg SC DAILY [facility] Last Admin: 02/04/17 09:22 Dose: 40 mg Famotidine (Pepcid) 20 mg PEG BID [facility] Last Admin: 02/04/17 18:27 Dose: 20 mg Finasteride (Proscar) 5 mg PEG DAILY [facility] Last Admin: 02/04/17 09:21 Dose: 5 mg Guaifenesin (Robitussin) 200 mg PO Q4H PRN PRN Reason: Cough and congestion Last Admin: 02/02/17 11:40 Dose: 200 mg Levetiracetam (Keppra) 500 mg PEG BID [facility] Last Admin: 02/04/17 18:26 Dose: 500 mg Tamsulosin HCl (Flomax) 0.4 mg PEG DAILY [facility] Last Admin: 02/04/17 16:05 Dose: 0.4 mg - Labs Labs: 02/02/17 07:26 02/02/17 07:26 PT 10.6 SECONDS (9.7-12.2) 11/24/15 14:10 INR 1.0 11/24/15 14:10 APTT 25 SECONDS (21-34) 11/24/15 14:10 Attending/Attestation - Attestation I have personally seen and examined this patient.: Yes I have fully participated in the care of the patient.: Yes I have reviewed all pertinent clinical information, including history, physical exam and plan: Yes Notes (Text): This is late computer entry for 02/04/17. Patient seen, examined, and case discussed with day-time resident. Patient admitted after cardiac arrest, with ensuing anoxic encephalopathy; prolonged hospital course due to inability to find placement; Active issues: Stage I-II sacral decubitus ulcer - At top of sacral crease; continue frequent re-positioning and protective ointment; appears to be improving Hypernatremia - Resolved per labs last week; continue 400 cc free water flushes q8h; CAD s/p WILLIE - continue ASA/plavix, coreg and crestor; Urinary retention - Intermittent, currently resolved; on bethanacol, continue; patient is urinating; has baker and Bladder PRN; Bladder scan today showed 50cc and baker in place Recurrent UTI - s/p bladder irrigation; baker currently; monitor for signs of sepsis/infection/
--- NOTE | 2017-02-05 09:55 | CP.PCM.PN ---
<Michel Ferris - Last Filed: 02/05/17 13:13> Subjective - Date & Time of Evaluation Date of Evaluation: 02/05/17 Time of Evaluation: 09:52 - Subjective Subjective: PGY-1 note for medicine service Pt seen and examined at bedside. Pt wet due to feeding tube being disconnected. It was reattached. No acute events overnight. Pt did not have bladder scan yesterday, discussed with nurse and she will do it today. Objective - Vital Signs/Intake and Output Vital Signs (last 24 hours): Temp Pulse Resp BP Pulse Ox 97.8 F 77 20 122/66 97 02/05/17 08:00 02/05/17 08:00 02/05/17 08:00 02/05/17 08:00 02/05/17 08:00 Intake and Output: 02/05/17 02/05/17 06:59 18:59 Intake Total 1740 Output Total 700 Balance 1040 - Medications Medications: Current Medications Aspirin (Aspirin Chewable) 81 mg PEG DAILY [facility] Last Admin: 02/04/17 13:09 Dose: 81 mg Bethanechol Chloride (Urecholine) 50 mg PEG TID [facility] Last Admin: 02/04/17 18:27 Dose: 50 mg Carvedilol (Coreg) 3.125 mg PEG BID [facility] Last Admin: 02/04/17 18:27 Dose: 3.125 mg Clopidogrel Bisulfate (Plavix) 75 mg PEG DAILY [facility] Last Admin: 02/04/17 09:21 Dose: 75 mg Emollient Ointment (Vaseline Oint) 5 gm TOP BID PRN PRN Reason: Dry skin Last Admin: 01/31/17 11:27 Dose: 5 gm Enoxaparin Sodium (Lovenox) 40 mg SC DAILY [facility] Last Admin: 02/04/17 09:22 Dose: 40 mg Famotidine (Pepcid) 20 mg PEG BID [facility] Last Admin: 02/04/17 18:27 Dose: 20 mg Finasteride (Proscar) 5 mg PEG DAILY [facility] Last Admin: 02/04/17 09:21 Dose: 5 mg Guaifenesin (Robitussin) 200 mg PO Q4H PRN PRN Reason: Cough and congestion Last Admin: 02/02/17 11:40 Dose: 200 mg Levetiracetam (Keppra) 500 mg PEG BID [facility] Last Admin: 02/04/17 18:26 Dose: 500 mg Tamsulosin HCl (Flomax) 0.4 mg PEG DAILY [facility] Last Admin: 02/04/17 16:05 Dose: 0.4 mg - Labs Labs: 02/02/17 07:26 02/02/17 07:26 PT 10.6 SECONDS (9.7-12.2) 11/24/15 14:10 INR 1.0 11/24/15 14:10 APTT 25 SECONDS (21-34) 11/24/15 14:10 - Constitutional Appears: Chronically Ill - Head Exam Head Exam: ATRAUMATIC, NORMOCEPHALIC - ENT Exam ENT Exam: Mucous Membranes Moist - Neck Exam Additional comments: trach in place - Respiratory Exam Respiratory Exam: Clear to Ausculation Bilateral Additional comments: no secretions noted, on vent - Cardiovascular Exam Cardiovascular Exam: +S1, +S2 - GI/Abdominal Exam GI & Abdominal Exam: Soft, Normal Bowel Sounds - Exam Additional comments: condom catheter in place - Neurological Exam Neurological Exam: Alert, Awake - Skin Skin Exam: Dry, Warm Assessment and Plan - Assessment and Plan (Free Text) Assessment: Anoxic brain injury s/p cardiac arrest in 05/2015 no acute changes, continue current management PEG tube dysfunction- resolved IR placed new PEG 01/06, functioning appropriately UTI- resolved CBI discontinued 01/08, baker catheter removed, patient with condom catheter- voiding yellow/ slightly cloudy urine, will continue to monitor 12/30- Triple lumen Baker in place for irrigation, added neosporin to CBI Urine Culture 12/03/16 - Positive Kleb pneumo, sensitive to cipro - resolved. Off antibiotics now Urinary Retention 02/04: bladder scan today, 50cc 01/29: condom cath in place 01/28: condom catheter displaced, so difficult to measure accurate output, but patient not retaining urine 01/27: yesterday was straight cath'd with 60cc clear cherie urine. bladder scan done twice with minimal residual urine seen. Flomax 0.4mg PEG daily Proscar 5mg PEG daily continue Bethanecol 50mg PEG TID- started after persistent retention and found to be effective. monitor I's and O's check bladder scan for residual urine three times weekly Last bladder scan done 01/18 with 50cc residual Sacral Ulcers Small area stage II in upper gluteal cleft- pink base Stage I ulcer present on sacrum; area frequently alternates between Stage I and healed ulcer. Continue frequent turning, protective ointment and skin checks. 01/07- wound care saw patient, air mattress adjusted and protective ointment applied to sacrum Respiratory failure trach collar in place - normal resp pattern, respiratory suctioned pt, improved 01/12- starting mucinex for secretions CAD (coronary artery disease) s/p cardiac stents on 06/13/15 ASA 81mg via PEG daily Coreg 3.125mg PEG BID Plavix 75mg PO daily Seizures Keppra 500mg PEG BID for seizure prophylaxis Lower extremity edema Lasix via PEG as needed. Hypernatremia- resolved increase free water flushes to 400cc q8h 01/26/17: Na of 139 labs 01/11 Na of 145 labs 01/19 sodium 142 f/u labs 01/26/17 Prophylactic measure Pepcid 20 mg PEG BID Lovenox 40mg SC daily SCDs and offloading boots continue to turn and reposition q2h Continue to monitor medication administrations and clinical presentation weekly labs- last drawn 02/02/17 <Nathaniel Beth - Last Filed: 03/03/17 22:04> Objective - Vital Signs/Intake and Output Vital Signs (last 24 hours): Temp Pulse Resp BP Pulse Ox 98.5 F 79 18 112/68 98 03/03/17 16:00 03/03/17 16:00 03/03/17 16:00 03/03/17 16:00 03/03/17 16:00 Intake and Output: 03/03/17 03/04/17 18:59 06:59 Intake Total 880 Output Total 200 Balance 680 - Medications Medications: Current Medications Aspirin (Aspirin Chewable) 81 mg PEG DAILY [facility] Last Admin: 03/03/17 09:12 Dose: 81 mg Bethanechol Chloride (Urecholine) 50 mg PEG TID [facility] Last Admin: 03/03/17 13:56 Dose: 50 mg Bisacodyl (Dulcolax) 5 mg PO Q72H PRN PRN Reason: Constipation Carvedilol (Coreg) 3.125 mg PEG BID [facility] Last Admin: 03/03/17 09:12 Dose: 3.125 mg Clopidogrel Bisulfate (Plavix) 75 mg PEG DAILY [facility] Last Admin: 03/03/17 09:12 Dose: 75 mg Emollient Ointment (Vaseline Oint) 5 gm TOP BID PRN PRN Reason: Dry skin Enoxaparin Sodium (Lovenox) 40 mg SC DAILY [facility] Last Admin: 03/03/17 09:12 Dose: 40 mg Famotidine (Pepcid) 20 mg PEG BID [facility] Last Admin: 03/03/17 09:12 Dose: 20 mg Finasteride (Proscar) 5 mg PEG DAILY [facility] Last Admin: 03/03/17 09:12 Dose: 5 mg Levetiracetam (Keppra) 500 mg PEG BID [facility] Last Admin: 03/03/17 09:11 Dose: 500 mg Tamsulosin HCl (Flomax) 0.4 mg PEG DAILY [facility] Last Admin: 03/03/17 09:12 Dose: 0.4 mg - Labs Labs: 03/02/17 06:03 03/02/17 06:03 PT 10.6 SECONDS (9.7-12.2) 11/24/15 14:10 INR 1.0 11/24/15 14:10 APTT 25 SECONDS (21-34) 11/24/15 14:10 Attending/Attestation - Attestation I have personally seen and examined this patient.: Yes I have fully participated in the care of the patient.: Yes I have reviewed all pertinent clinical information, including history, physical exam and plan: Yes
[2017-02-05] MEDS: levETIRAcetam 100 mg/ml (5ml) Oral Syringe PEG SCH ×2 (11:02→18:39)
[2017-02-05] MEDS: Enoxaparin 40 mg Syringe SC SCH (11:03)
[2017-02-06] MEDS: Enoxaparin 40 mg Syringe SC SCH (11:54)
[2017-02-06] MEDS: levETIRAcetam 100 mg/ml (5ml) Oral Syringe PEG SCH ×2 (11:58→22:08)
--- NOTE | 2017-02-06 17:28 | CP.PCM.PN ---
<Michel Ferris - Last Filed: 02/06/17 17:26> Subjective - Date & Time of Evaluation Date of Evaluation: 02/06/17 Time of Evaluation: 17:26 - Subjective Subjective: PGY-1 note for medicine service Pt seen and examined at bedside. Nurse did bladder scan since she thought he felt distended - no retention noted. Objective - Vital Signs/Intake and Output Vital Signs (last 24 hours): Temp Pulse Resp BP Pulse Ox 97.2 F L 74 20 107/72 96 02/06/17 17:00 02/06/17 17:00 02/06/17 17:00 02/06/17 17:00 02/06/17 17:00 Intake and Output: 02/06/17 02/06/17 06:59 18:59 Intake Total 1760 880 Output Total 1300 300 Balance 460 580 - Medications Medications: Current Medications Aspirin (Aspirin Chewable) [address] [facility] Last Admin: 02/06/17 11:57 Dose: 81 mg Bethanechol Chloride (Urecholine) [address] [facility] Last Admin: 02/06/17 14:42 Dose: 50 mg Carvedilol (Coreg) 3.[address] [facility] Last Admin: 02/06/17 11:57 Dose: 3.125 mg Clopidogrel Bisulfate (Plavix) [address] [facility] Last Admin: 02/06/17 11:57 Dose: 75 mg Emollient Ointment (Vaseline Oint) 5 gm TOP BID PRN PRN Reason: Dry skin Last Admin: 01/31/17 11:27 Dose: 5 gm Enoxaparin Sodium (Lovenox) [address] [facility] Last Admin: 02/06/17 11:54 Dose: 40 mg Famotidine (Pepcid) [address] [facility] Last Admin: 02/06/17 11:57 Dose: 20 mg Finasteride (Proscar) [address] [facility] Last Admin: 02/06/17 11:58 Dose: 5 mg Guaifenesin (Robitussin) 200 mg PO Q4H PRN PRN Reason: Cough and congestion Last Admin: 02/02/17 11:40 Dose: 200 mg Levetiracetam (Keppra) [address] [facility] Last Admin: 02/06/17 11:58 Dose: 500 mg Tamsulosin HCl (Flomax) 0.[address] [facility] Last Admin: 02/06/17 11:57 Dose: 0.4 mg - Labs Labs: 02/02/17 07:26 02/02/17 07:26 PT 10.6 SECONDS (9.7-12.2) 11/24/15 14:10 INR 1.0 11/24/15 14:10 APTT 25 SECONDS (21-34) 11/24/15 14:10 - Constitutional Appears: Chronically Ill - Head Exam Head Exam: ATRAUMATIC, NORMOCEPHALIC - ENT Exam ENT Exam: Mucous Membranes Moist - Respiratory Exam Respiratory Exam: Clear to Ausculation Bilateral Additional comments: On vent - Cardiovascular Exam Cardiovascular Exam: +S1, +S2 - GI/Abdominal Exam GI & Abdominal Exam: Soft, Normal Bowel Sounds - Skin Skin Exam: Dry, Warm Assessment and Plan - Assessment and Plan (Free Text) Assessment: Anoxic brain injury s/p cardiac arrest in 05/2015 no acute changes, continue current management PEG tube dysfunction- resolved IR placed new PEG 01/06, functioning appropriately UTI- resolved CBI discontinued 01/08, baker catheter removed, patient with condom catheter- voiding yellow/ slightly cloudy urine, will continue to monitor 12/30- Triple lumen Baker in place for irrigation, added neosporin to CBI Urine Culture 12/03/16 - Positive Kleb pneumo, sensitive to cipro - resolved. Off antibiotics now Urinary Retention 02/04: bladder scan today, 50cc 01/29: condom cath in place 01/28: condom catheter displaced, so difficult to measure accurate output, but patient not retaining urine 01/27: yesterday was straight cath'd with 60cc clear cherie urine. bladder scan done twice with minimal residual urine seen. Flomax 0.4mg PEG daily Proscar 5mg PEG daily continue Bethanecol 50mg PEG TID- started after persistent retention and found to be effective. monitor I's and O's check bladder scan for residual urine three times weekly Last bladder scan done 01/18 with 50cc residual Sacral Ulcers Small area stage II in upper gluteal cleft- pink base Stage I ulcer present on sacrum; area frequently alternates between Stage I and healed ulcer. Continue frequent turning, protective ointment and skin checks. 01/07- wound care saw patient, air mattress adjusted and protective ointment applied to sacrum Respiratory failure trach collar in place - normal resp pattern, respiratory suctioned pt, improved 01/12- starting mucinex for secretions CAD (coronary artery disease) s/p cardiac stents on 06/13/15 ASA 81mg via PEG daily Coreg 3.125mg PEG BID Plavix 75mg PO daily Seizures Keppra 500mg PEG BID for seizure prophylaxis Lower extremity edema Lasix via PEG as needed. Hypernatremia- resolved increase free water flushes to 400cc q8h 01/26/17: Na of 139 labs 01/11 Na of 145 labs 01/19 sodium 142 f/u labs 01/26/17 Prophylactic measure Pepcid 20 mg PEG BID Lovenox 40mg SC daily SCDs and offloading boots continue to turn and reposition q2h Continue to monitor medication administrations and clinical presentation weekly labs- last drawn 02/02/17 <Nathaniel Beth - Last Filed: 02/07/17 11:39> Objective - Vital Signs/Intake and Output Vital Signs (last 24 hours): Temp Pulse Resp BP Pulse Ox 97.9 F 74 20 113/74 99 02/07/17 08:30 02/07/17 08:30 02/07/17 08:30 02/07/17 08:30 02/07/17 08:30 Intake and Output: 02/07/17 02/07/17 06:59 18:59 Intake Total 1760 Output Total 600 Balance 1160 - Medications Medications: Current Medications Aspirin (Aspirin Chewable) [address] [facility] Last Admin: 02/07/17 11:15 Dose: 81 mg Bethanechol Chloride (Urecholine) [address] [facility] Last Admin: 02/07/17 11:16 Dose: 50 mg Carvedilol (Coreg) 3.[address] [facility] Last Admin: 02/07/17 11:15 Dose: 3.125 mg Clopidogrel Bisulfate (Plavix) [address] [facility] Last Admin: 02/07/17 11:15 Dose: 75 mg Emollient Ointment (Vaseline Oint) 5 gm TOP BID PRN PRN Reason: Dry skin Last Admin: 01/31/17 11:27 Dose: 5 gm Enoxaparin Sodium (Lovenox) [address] [facility] Last Admin: 02/07/17 11:15 Dose: 40 mg Famotidine (Pepcid) [address] [facility] Last Admin: 02/07/17 11:19 Dose: 20 mg Finasteride (Proscar) [address] [facility] Last Admin: 02/07/17 11:18 Dose: 5 mg Guaifenesin (Robitussin) 200 mg PO Q4H PRN PRN Reason: Cough and congestion Last Admin: 02/07/17 11:18 Dose: 200 mg Levetiracetam (Keppra) [address] [facility] Last Admin: 02/07/17 11:16 Dose: 500 mg Tamsulosin HCl (Flomax) 0.[address] [facility] Last Admin: 02/07/17 11:15 Dose: 0.4 mg - Labs Labs: 02/02/17 07:26 02/02/17 07:26 PT 10.6 SECONDS (9.7-12.2) 11/24/15 14:10 INR 1.0 11/24/15 14:10 APTT 25 SECONDS (21-34) 11/24/15 14:10 Attending/Attestation - Attestation I have personally seen and examined this patient.: Yes I have fully participated in the care of the patient.: Yes I have reviewed all pertinent clinical information, including history, physical exam and plan: Yes Notes (Text): Patient with anoxic encephalopathy following cardiac arrest; No change in clinical status; Monitoring sacral decubitus ulcer which appears to be stage I currently; Weekly labs, monitoring for hypernatremia; Intermittent urinary retention, bladder scan today reassuring, continue bethanecol; Continue ASA, plavix, coreg for CAD s/p WILLIE.
--- NOTE | 2017-02-07 08:35 | CP.PCM.PN ---
<Farrah Doan - Last Filed: 02/07/17 10:25> Subjective - Date & Time of Evaluation Date of Evaluation: 02/07/17 Time of Evaluation: 10:25 - Subjective Subjective: Internal medicine progress note for Dr. Beth-Farrah Doan, PGY-1 Pt S & E at bedside. Per nursing, pt at baseline. Only deviation is secretions have increased and are thicker- instructed nursing to give guanifesin. Pt responding to toxic stimuli, no verbal or auditory stimuli response. Eyes open, but pt not tracking. Objective - Vital Signs/Intake and Output Vital Signs (last 24 hours): Temp Pulse Resp BP Pulse Ox 97.3 F L 73 20 123/83 96 02/06/17 22:58 02/07/17 01:07 02/06/17 22:58 02/06/17 22:58 02/06/17 22:58 Intake and Output: 02/07/17 02/07/17 06:59 18:59 Intake Total 1760 Output Total 600 Balance 1160 - Medications Medications: Current Medications Aspirin (Aspirin Chewable) 81 mg PEG DAILY [facility] Last Admin: 02/06/17 11:57 Dose: 81 mg Bethanechol Chloride (Urecholine) 50 mg PEG TID [facility] Last Admin: 02/06/17 22:08 Dose: 50 mg Carvedilol (Coreg) 3.125 mg PEG BID [facility] Last Admin: 02/06/17 22:08 Dose: 3.125 mg Clopidogrel Bisulfate (Plavix) 75 mg PEG DAILY [facility] Last Admin: 02/06/17 11:57 Dose: 75 mg Emollient Ointment (Vaseline Oint) 5 gm TOP BID PRN PRN Reason: Dry skin Last Admin: 01/31/17 11:27 Dose: 5 gm Enoxaparin Sodium (Lovenox) 40 mg SC DAILY [facility] Last Admin: 02/06/17 11:54 Dose: 40 mg Famotidine (Pepcid) 20 mg PEG BID [facility] Last Admin: 02/06/17 22:08 Dose: 20 mg Finasteride (Proscar) 5 mg PEG DAILY [facility] Last Admin: 02/06/17 11:58 Dose: 5 mg Guaifenesin (Robitussin) 200 mg PO Q4H PRN PRN Reason: Cough and congestion Last Admin: 02/02/17 11:40 Dose: 200 mg Levetiracetam (Keppra) 500 mg PEG BID [facility] Last Admin: 02/06/17 22:08 Dose: 500 mg Tamsulosin HCl (Flomax) 0.4 mg PEG DAILY [facility] Last Admin: 02/06/17 11:57 Dose: 0.4 mg - Labs Labs: 02/02/17 07:26 02/02/17 07:26 PT 10.6 SECONDS (9.7-12.2) 11/24/15 14:10 INR 1.0 11/24/15 14:10 APTT 25 SECONDS (21-34) 11/24/15 14:10 - Constitutional Appears: Non-toxic, No Acute Distress, Other (trach collar in place) - Head Exam Head Exam: ATRAUMATIC, NORMAL INSPECTION, NORMOCEPHALIC - Eye Exam Eye Exam: EOMI, Normal appearance Pupil Exam: NORMAL ACCOMODATION, PERRL - ENT Exam ENT Exam: Mucous Membranes Moist, Normal Exam - Neck Exam Additional comments: Trach collar in place, no drainage noted. - Respiratory Exam Respiratory Exam: Clear to Ausculation Bilateral, NORMAL BREATHING PATTERN. absent: Rales, Rhonchi, Wheezes, Respiratory Distress - Cardiovascular Exam Cardiovascular Exam: REGULAR RHYTHM, +S1, +S2 - GI/Abdominal Exam GI & Abdominal Exam: Soft, Normal Bowel Sounds. absent: Distended, Tenderness Additional comments: G tube in place in RUQ, dressing covering- C/D/I - Extremities Exam Extremities Exam: Pedal Edema Additional comments: Airboots in place, unable to visualize feet - Neurological Exam Neurological Exam: Awake. absent: Alert, Oriented x3 - Psychiatric Exam Psychiatric exam: Normal Affect, Normal Mood - Skin Skin Exam: Dry, Intact, Normal Color, Warm Assessment and Plan - Assessment and Plan (Free Text) Assessment: Anoxic brain injury s/p cardiac arrest in 05/2015 no acute changes Awake, not alert, not sedated continue current management Urinary Retention 02/04: bladder scan today, 50cc 01/29: condom cath in place 01/28: condom catheter displaced, so difficult to measure accurate output, but patient not retaining urine 01/27: yesterday was straight cath'd with 60cc clear cherie urine. bladder scan done twice with minimal residual urine seen. Flomax 0.4mg PEG daily Proscar 5mg PEG daily continue Bethanecol 50mg PEG TID- started after persistent retention and found to be effective. monitor I's and O's check bladder scan for residual urine three times weekly Last bladder scan done 01/18 with 50cc residual Sacral Ulcers Small area stage II in upper gluteal cleft- pink base Stage I ulcer present on sacrum; area frequently alternates between Stage I and healed ulcer. Continue frequent turning, protective ointment and skin checks. 01/07- wound care saw patient, air mattress adjusted and protective ointment applied to sacrum Respiratory failure trach collar in place - normal resp pattern, respiratory suctioned pt, improved 01/12- starting mucinex for secretions CAD (coronary artery disease) s/p cardiac stents on 06/13/15 ASA 81mg via PEG daily Coreg 3.125mg PEG BID Plavix 75mg PO daily Seizures Keppra 500mg PEG BID for seizure prophylaxis Lower extremity edema Lasix via PEG as needed. Hypernatremia- resolved Free water flushes of 100cc during each bowel rest 02/02/17: Na of 142 01/26/17: Na of 139 labs 01/11 Na of 145 labs 01/19 sodium 142 f/u labs 01/26/17 PEG tube dysfunction- resolved IR placed new PEG 01/06, functioning appropriately UTI- resolved CBI discontinued 01/08, baker catheter removed, patient with condom catheter- voiding yellow/ slightly cloudy urine, will continue to monitor 12/30- Triple lumen Baker in place for irrigation, added neosporin to CBI Urine Culture 12/03/16 - Positive Kleb pneumo, sensitive to cipro - resolved. Off antibiotics now Prophylactic measure Pepcid 20 mg PEG BID Lovenox 40mg SC daily SCDs and offloading boots continue to turn and reposition q2h Continue to monitor medication administrations and clinical presentation weekly labs- last drawn 02/02/17 <Nathaniel Beth - Last Filed: 02/08/17 09:40> Objective - Vital Signs/Intake and Output Vital Signs (last 24 hours): Temp Pulse Resp BP Pulse Ox 97.4 F L 76 20 114/75 99 02/08/17 07:55 02/08/17 07:55 02/08/17 07:55 02/08/17 07:55 02/08/17 07:55 Intake and Output: 02/08/17 02/08/17 06:59 18:59 Intake Total 1610 Output Total 900 Balance 710 - Medications Medications: Current Medications Aspirin (Aspirin Chewable) 81 mg PEG DAILY [facility] Last Admin: 02/07/17 11:15 Dose: 81 mg Bethanechol Chloride (Urecholine) 50 mg PEG TID [facility] Last Admin: 02/07/17 18:09 Dose: 50 mg Carvedilol (Coreg) 3.125 mg PEG BID [facility] Last Admin: 02/07/17 18:08 Dose: 3.125 mg Clopidogrel Bisulfate (Plavix) 75 mg PEG DAILY [facility] Last Admin: 02/07/17 11:15 Dose: 75 mg Emollient Ointment (Vaseline Oint) 5 gm TOP BID PRN PRN Reason: Dry skin Last Admin: 01/31/17 11:27 Dose: 5 gm Enoxaparin Sodium (Lovenox) 40 mg SC DAILY [facility] Last Admin: 02/07/17 11:15 Dose: 40 mg Famotidine (Pepcid) 20 mg PEG BID [facility] Last Admin: 02/07/17 18:09 Dose: 20 mg Finasteride (Proscar) 5 mg PEG DAILY [facility] Last Admin: 02/07/17 11:18 Dose: 5 mg Guaifenesin (Robitussin) 200 mg PO Q4H PRN PRN Reason: Cough and congestion Last Admin: 02/07/17 18:10 Dose: 200 mg Levetiracetam (Keppra) 500 mg PEG BID [facility] Last Admin: 02/07/17 18:09 Dose: 500 mg Tamsulosin HCl (Flomax) 0.4 mg PEG DAILY [facility] Last Admin: 02/07/17 11:15 Dose: 0.4 mg - Labs Labs: 02/02/17 07:26 02/02/17 07:26 PT 10.6 SECONDS (9.7-12.2) 11/24/15 14:10 INR 1.0 11/24/15 14:10 APTT 25 SECONDS (21-34) 11/24/15 14:10 Attending/Attestation - Attestation I have personally seen and examined this patient.: Yes I have fully participated in the care of the patient.: Yes I have reviewed all pertinent clinical information, including history, physical exam and plan: Yes Notes (Text): Patient with anoxic encephalopathy following cardiac arrest; No change in clinical status other than guifanessin being started for thick secretions from trach (occurs intermittently); Monitoring sacral decubitus ulcer which appears to be stage I currently; Weekly labs, monitoring for hypernatremia; Intermittent urinary retention, continue bethanecol; no distention on exam today , will get intermittent bladder scans; Continue ASA, plavix, coreg for CAD s/p WILLIE.
[2017-02-07] MEDS: Enoxaparin 40 mg Syringe SC SCH (11:15)
[2017-02-07] MEDS: levETIRAcetam 100 mg/ml (5ml) Oral Syringe PEG SCH ×2 (11:16→18:09)
[2017-02-07] MEDS: guaiFENesin 200 mg/10 ml Syrup UD PO PRN ×2 (11:18→18:10)
--- NOTE | 2017-02-08 01:46 | CP.PCM.PN ---
<Farrah Doan - Last Filed: 02/08/17 01:43> Subjective - Date & Time of Evaluation Date of Evaluation: 02/08/17 Time of Evaluation: 01:43 - Subjective Subjective: Internal medicine progress note for Dr. Clary Doan PGY-1 Pt S & E at bedside. Pt at baseline. Pt opening eyes to toxic stimuli, verbal and auditory stimuli. Does not follow simple commands. Eyes open, but pt not tracking. Stable Objective - Vital Signs/Intake and Output Vital Signs (last 24 hours): Temp Pulse Resp BP Pulse Ox 98.4 F 74 20 100/70 99 02/08/17 00:00 02/08/17 00:00 02/08/17 00:00 02/08/17 00:00 02/08/17 00:00 Intake and Output: 02/07/17 02/08/17 18:59 06:59 Intake Total 580 880 Output Total 400 600 Balance 180 280 - Medications Medications: Current Medications Aspirin (Aspirin Chewable) 81 mg PEG DAILY [facility] Last Admin: 02/07/17 11:15 Dose: 81 mg Bethanechol Chloride (Urecholine) 50 mg PEG TID [facility] Last Admin: 02/07/17 18:09 Dose: 50 mg Carvedilol (Coreg) 3.125 mg PEG BID [facility] Last Admin: 02/07/17 18:08 Dose: 3.125 mg Clopidogrel Bisulfate (Plavix) 75 mg PEG DAILY [facility] Last Admin: 02/07/17 11:15 Dose: 75 mg Emollient Ointment (Vaseline Oint) 5 gm TOP BID PRN PRN Reason: Dry skin Last Admin: 01/31/17 11:27 Dose: 5 gm Enoxaparin Sodium (Lovenox) 40 mg SC DAILY [facility] Last Admin: 02/07/17 11:15 Dose: 40 mg Famotidine (Pepcid) 20 mg PEG BID [facility] Last Admin: 02/07/17 18:09 Dose: 20 mg Finasteride (Proscar) 5 mg PEG DAILY [facility] Last Admin: 02/07/17 11:18 Dose: 5 mg Guaifenesin (Robitussin) 200 mg PO Q4H PRN PRN Reason: Cough and congestion Last Admin: 02/07/17 18:10 Dose: 200 mg Levetiracetam (Keppra) 500 mg PEG BID [facility] Last Admin: 02/07/17 18:09 Dose: 500 mg Tamsulosin HCl (Flomax) 0.4 mg PEG DAILY [facility] Last Admin: 02/07/17 11:15 Dose: 0.4 mg - Labs Labs: 02/02/17 07:26 02/02/17 07:26 PT 10.6 SECONDS (9.7-12.2) 11/24/15 14:10 INR 1.0 11/24/15 14:10 APTT 25 SECONDS (21-34) 11/24/15 14:10 - Constitutional Appears: Non-toxic, No Acute Distress - Head Exam Head Exam: ATRAUMATIC, NORMAL INSPECTION, NORMOCEPHALIC Additional comments: Trach collar in place - Eye Exam Eye Exam: EOMI, Normal appearance - ENT Exam ENT Exam: Mucous Membranes Moist, Normal Exam - Neck Exam Additional comments: Trach collar in place- no drainage or blood visible - Respiratory Exam Respiratory Exam: Clear to Ausculation Bilateral, NORMAL BREATHING PATTERN. absent: Accessory Muscle Use, Rales, Rhonchi, Wheezes - Cardiovascular Exam Cardiovascular Exam: REGULAR RHYTHM, +S1, +S2 - GI/Abdominal Exam GI & Abdominal Exam: Soft, Normal Bowel Sounds. absent: Distended, Tenderness - Extremities Exam Extremities Exam: Pedal Edema Additional comments: airboots in place - Neurological Exam Neurological Exam: Awake. absent: Alert Additional comments: arousable to verbal, tactile, and toxic stimuli, does not follow simple commands , does not track with eyes - Psychiatric Exam Additional comments: unable to assess- pt non verbal - Skin Skin Exam: Dry, Intact, Normal Color, Warm Assessment and Plan - Assessment and Plan (Free Text) Assessment: Anoxic brain injury s/p cardiac arrest in 05/2015 no acute changes Awake, not alert, not sedated continue current management Stable Urinary Retention Flomax 0.4mg PEG daily Proscar 5mg PEG daily continue Bethanecol 50mg PEG TID- started after persistent retention and found to be effective. monitor I's and O's check bladder scan for residual urine three times weekly 02/04: bladder scan today, 50cc 01/29: condom cath in place 01/28: condom catheter displaced, so difficult to measure accurate output, but patient not retaining urine 01/27: yesterday was straight cath'd with 60cc clear cherie urine. bladder scan done twice with minimal residual urine seen. 01/18: 50 cc residual Sacral Ulcers Small area stage II in upper gluteal cleft- pink base Stage I ulcer present on sacrum; area frequently alternates between Stage I and healed ulcer. Continue frequent turning, protective ointment and skin checks. 01/07- wound care saw patient, air mattress adjusted and protective ointment applied to sacrum Continue wound care Respiratory failure trach collar in place - normal resp pattern, respiratory suctioned pt, improved 02/07: instructed nursing to give guanifesin for thickened secretions 01/12- starting mucinex for secretions CAD (coronary artery disease) s/p cardiac stents on 06/13/15 ASA 81mg via PEG daily Coreg 3.125mg PEG BID Plavix 75mg PO daily Seizures Keppra 500mg PEG BID for seizure prophylaxis Monitor Lower extremity edema Lasix via PEG as needed. Monitor Hypernatremia- resolved Free water flushes of 100cc during each bowel rest 02/02/17: Na of 142 01/26/17: Na of 139 01/11 Na of 145 01/19 sodium 142 PEG tube dysfunction- resolved IR placed new PEG 01/06, functioning appropriately Cont tube feeding UTI- resolved CBI discontinued 01/08, baker catheter removed, Condom catheter- voiding yellow/ slightly cloudy urine Monitor 12/30- Triple lumen Baker in place for irrigation, added neosporin to CBI Urine Culture 12/03/16 - Positive Kleb pneumo, sensitive to cipro - resolved. Off antibiotics now Prophylactic measure Pepcid 20 mg PEG BID Lovenox 40mg SC daily SCDs and offloading boots continue to turn and reposition q2h Continue to monitor medication administrations and clinical presentation weekly labs- last drawn 02/02/17 <Nathaniel Beth - Last Filed: 03/03/17 22:21> Objective - Vital Signs/Intake and Output Vital Signs (last 24 hours): Temp Pulse Resp BP Pulse Ox 98.5 F 79 18 112/68 98 03/03/17 16:00 03/03/17 16:00 03/03/17 16:00 03/03/17 16:00 03/03/17 16:00 Intake and Output: 03/03/17 03/04/17 18:59 06:59 Intake Total 880 Output Total 200 Balance 680 - Medications Medications: Current Medications Aspirin (Aspirin Chewable) 81 mg PEG DAILY [facility] Last Admin: 03/03/17 09:12 Dose: 81 mg Bethanechol Chloride (Urecholine) 50 mg PEG TID [facility] Last Admin: 03/03/17 13:56 Dose: 50 mg Bisacodyl (Dulcolax) 5 mg PO Q72H PRN PRN Reason: Constipation Carvedilol (Coreg) 3.125 mg PEG BID [facility] Last Admin: 03/03/17 09:12 Dose: 3.125 mg Clopidogrel Bisulfate (Plavix) 75 mg PEG DAILY [facility] Last Admin: 03/03/17 09:12 Dose: 75 mg Emollient Ointment (Vaseline Oint) 5 gm TOP BID PRN PRN Reason: Dry skin Enoxaparin Sodium (Lovenox) 40 mg SC DAILY [facility] Last Admin: 03/03/17 09:12 Dose: 40 mg Famotidine (Pepcid) 20 mg PEG BID [facility] Last Admin: 03/03/17 09:12 Dose: 20 mg Finasteride (Proscar) 5 mg PEG DAILY [facility] Last Admin: 03/03/17 09:12 Dose: 5 mg Levetiracetam (Keppra) 500 mg PEG BID [facility] Last Admin: 03/03/17 09:11 Dose: 500 mg Tamsulosin HCl (Flomax) 0.4 mg PEG DAILY [facility] Last Admin: 03/03/17 09:12 Dose: 0.4 mg - Labs Labs: 03/02/17 06:03 03/02/17 06:03 PT 10.6 SECONDS (9.7-12.2) 11/24/15 14:10 INR 1.0 11/24/15 14:10 APTT 25 SECONDS (21-34) 11/24/15 14:10 Attending/Attestation - Attestation I have personally seen and examined this patient.: Yes I have fully participated in the care of the patient.: Yes I have reviewed all pertinent clinical information, including history, physical exam and plan: Yes
[2017-02-08] MEDS: Enoxaparin 40 mg Syringe SC SCH (11:20)
[2017-02-08] MEDS: guaiFENesin 200 mg/10 ml Syrup UD PO PRN (11:20)
[2017-02-08] MEDS: levETIRAcetam 100 mg/ml (5ml) Oral Syringe PEG SCH ×2 (11:21→17:47)
[2017-02-09 08:42] LABS: BASO % 0.4 % (0.0-2.0); EOS # 0.4 K/uL (0.0-0.7); HEMOGLOBIN 11.6 g/dL (12.0-18.0); LYMPH # 2.2 K/uL (1.0-4.3); LYMPH % 23.3 % (20.0-40.0); MEAN CELL VOLUME 87.5 fL (80.0-94.0); MEAN CORPUSCULAR HEMOGLOBIN 28.3 pg (27.0-31.0); MEAN CORPUSCULAR HGB CONC 32.3 g/dL (33.0-37.0); MEAN PLATELET VOLUME 9.2 fL (7.2-11.7); MONO # 1.1 K/uL (0.0-0.8); MONO % 11.3 % (0.0-10.0); NEUT # 5.8 K/uL (1.8-7.0); NRBC % 0.1 % (0.0-2.0); RBC 4.1 Mil/uL (4.40-5.90); RED CELL DISTRIBUTION WIDTH 15.5 % (11.5-14.5); WHITE BLOOD COUNT 9.4 K/uL (4.8-10.8)
[2017-02-09 09:00] LABS: ALBUMIN 3.4 g/dL (3.5-5.0)
[2017-02-09 09:03] LABS: AST/SGOT 27 U/L (17-59); GFR NON-AFRICAN AMERICAN > 60
[2017-02-09 09:04] LABS: ALB/GLOB RATIO 0.8 (1.0-2.1); ALT/SGPT 54 U/L (21-72); BLOOD UREA NITROGEN 20 mg/dL (9-20); CALCIUM 8.3 mg/dl (8.6-10.4)
[2017-02-09] MEDS: levETIRAcetam 100 mg/ml (5ml) Oral Syringe PEG SCH ×2 (11:15→18:55)
[2017-02-09] MEDS: Enoxaparin 40 mg Syringe SC SCH (11:16)
--- NOTE | 2017-02-09 12:43 | CP.PCM.PN ---
<Michel Ferris - Last Filed: 02/09/17 12:40> Subjective - Date & Time of Evaluation Date of Evaluation: 02/09/17 Time of Evaluation: 12:40 - Subjective Subjective: PGY-1 note for medicine service Pt seen and examined at bedside. No acute events per nursing staff. Reiterated need to rotate pt as his sacral ulcers getting worse. Objective - Vital Signs/Intake and Output Vital Signs (last 24 hours): Temp Pulse Resp BP Pulse Ox 98.5 F 70 20 99/62 L 100 02/09/17 08:12 02/09/17 08:12 02/09/17 08:12 02/09/17 08:12 02/09/17 08:12 Intake and Output: 02/09/17 02/09/17 06:59 18:59 Intake Total 1410 Output Total 600 Balance 810 - Medications Medications: Current Medications Aspirin (Aspirin Chewable) 81 mg PEG DAILY [facility] Last Admin: 02/09/17 11:17 Dose: 81 mg Bethanechol Chloride (Urecholine) 50 mg PEG TID [facility] Last Admin: 02/09/17 11:16 Dose: 50 mg Carvedilol (Coreg) 3.125 mg PEG BID [facility] Last Admin: 02/09/17 11:16 Dose: 3.125 mg Clopidogrel Bisulfate (Plavix) 75 mg PEG DAILY [facility] Last Admin: 02/09/17 11:17 Dose: 75 mg Emollient Ointment (Vaseline Oint) 5 gm TOP BID PRN PRN Reason: Dry skin Last Admin: 01/31/17 11:27 Dose: 5 gm Enoxaparin Sodium (Lovenox) 40 mg SC DAILY [facility] Last Admin: 02/09/17 11:16 Dose: 40 mg Famotidine (Pepcid) 20 mg PEG BID [facility] Last Admin: 02/09/17 11:17 Dose: 20 mg Finasteride (Proscar) 5 mg PEG DAILY [facility] Last Admin: 02/09/17 11:16 Dose: 5 mg Guaifenesin (Robitussin) 200 mg PO Q4H PRN PRN Reason: Cough and congestion Last Admin: 02/08/17 11:20 Dose: 200 mg Levetiracetam (Keppra) 500 mg PEG BID [facility] Last Admin: 02/09/17 11:15 Dose: 500 mg Tamsulosin HCl (Flomax) 0.4 mg PEG DAILY [facility] Last Admin: 02/09/17 11:17 Dose: 0.4 mg - Labs Labs: 02/09/17 08:30 02/09/17 08:30 PT 10.6 SECONDS (9.7-12.2) 11/24/15 14:10 INR 1.0 11/24/15 14:10 APTT 25 SECONDS (21-34) 11/24/15 14:10 - Constitutional Appears: Chronically Ill - Head Exam Head Exam: ATRAUMATIC, NORMOCEPHALIC - ENT Exam ENT Exam: Mucous Membranes Moist - Respiratory Exam Respiratory Exam: Clear to Ausculation Bilateral Additional comments: On vent. Secretions noted - Cardiovascular Exam Cardiovascular Exam: +S1, +S2 - GI/Abdominal Exam GI & Abdominal Exam: Soft, Normal Bowel Sounds - Back Exam Additional comments: B/L sacral ulcers, left slightly larger than the right. - Skin Skin Exam: Dry, Warm Assessment and Plan - Assessment and Plan (Free Text) Assessment: Anoxic brain injury s/p cardiac arrest in 05/2015 no acute changes Awake, not alert, not sedated continue current management Stable Urinary Retention Flomax 0.4mg PEG daily Proscar 5mg PEG daily continue Bethanecol 50mg PEG TID- started after persistent retention and found to be effective. monitor I's and O's check bladder scan for residual urine three times weekly 02/04: bladder scan today, 50cc 01/29: condom cath in place 01/28: condom catheter displaced, so difficult to measure accurate output, but patient not retaining urine 01/27: yesterday was straight cath'd with 60cc clear cherie urine. bladder scan done twice with minimal residual urine seen. 01/18: 50 cc residual Sacral Ulcers Small area stage II in upper gluteal cleft- pink base Stage II ulcer present on sacrum Continue frequent turning, protective ointment and skin checks. 01/07- wound care saw patient, air mattress adjusted and protective ointment applied to sacrum Continue wound care Respiratory failure trach collar in place - normal resp pattern, respiratory suctioned pt, improved 02/07: instructed nursing to give guanifesin for thickened secretions 01/12- starting mucinex for secretions CAD (coronary artery disease) s/p cardiac stents on 06/13/15 ASA 81mg via PEG daily Coreg 3.125mg PEG BID Plavix 75mg PO daily Seizures Keppra 500mg PEG BID for seizure prophylaxis Monitor Lower extremity edema Lasix via PEG as needed. Monitor Hypernatremia- resolved Free water flushes of 100cc during each bowel rest 02/02/17: Na of 142 01/26/17: Na of 139 01/11 Na of 145 01/19 sodium 142 PEG tube dysfunction- resolved IR placed new PEG 01/06, functioning appropriately Cont tube feeding UTI- resolved CBI discontinued 01/08, baker catheter removed, Condom catheter- voiding yellow/ slightly cloudy urine Monitor 12/30- Triple lumen Baker in place for irrigation, added neosporin to CBI Urine Culture 12/03/16 - Positive Kleb pneumo, sensitive to cipro - resolved. Off antibiotics now Prophylactic measure Pepcid 20 mg PEG BID Lovenox 40mg SC daily SCDs and offloading boots continue to turn and reposition q2h Continue to monitor medication administrations and clinical presentation weekly labs- last drawn 02/09/17 <Nathaniel Beth - Last Filed: 02/09/17 19:33> Objective - Vital Signs/Intake and Output Vital Signs (last 24 hours): Temp Pulse Resp BP Pulse Ox 97.8 F 82 22 114/77 98 02/09/17 15:00 02/09/17 15:00 02/09/17 15:00 02/09/17 15:00 02/09/17 15:00 Intake and Output: 02/09/17 02/10/17 18:59 06:59 Intake Total 880 Output Total 200 Balance 680 - Medications Medications: Current Medications Aspirin (Aspirin Chewable) 81 mg PEG DAILY [facility] Last Admin: 02/09/17 11:17 Dose: 81 mg Bethanechol Chloride (Urecholine) 50 mg PEG TID [facility] Last Admin: 02/09/17 18:56 Dose: 50 mg Carvedilol (Coreg) 3.125 mg PEG BID [facility] Last Admin: 02/09/17 18:56 Dose: 3.125 mg Clopidogrel Bisulfate (Plavix) 75 mg PEG DAILY [facility] Last Admin: 02/09/17 11:17 Dose: 75 mg Emollient Ointment (Vaseline Oint) 5 gm TOP BID PRN PRN Reason: Dry skin Last Admin: 01/31/17 11:27 Dose: 5 gm Enoxaparin Sodium (Lovenox) 40 mg SC DAILY [facility] Last Admin: 02/09/17 11:16 Dose: 40 mg Famotidine (Pepcid) 20 mg PEG BID [facility] Last Admin: 02/09/17 18:56 Dose: 20 mg Finasteride (Proscar) 5 mg PEG DAILY [facility] Last Admin: 02/09/17 11:16 Dose: 5 mg Guaifenesin (Robitussin) 200 mg PO Q4H PRN PRN Reason: Cough and congestion Last Admin: 02/08/17 11:20 Dose: 200 mg Levetiracetam (Keppra) 500 mg PEG BID [facility] Last Admin: 02/09/17 18:55 Dose: 500 mg Tamsulosin HCl (Flomax) 0.4 mg PEG DAILY [facility] Last Admin: 02/09/17 11:17 Dose: 0.4 mg - Labs Labs: 02/09/17 08:30 02/09/17 08:30 PT 10.6 SECONDS (9.7-12.2) 11/24/15 14:10 INR 1.0 11/24/15 14:10 APTT 25 SECONDS (21-34) 11/24/15 14:10 Attending/Attestation - Attestation I have personally seen and examined this patient.: Yes I have fully participated in the care of the patient.: Yes I have reviewed all pertinent clinical information, including history, physical exam and plan: Yes Notes (Text): Patient with anoxic encephalopath s/p cardiac arrest; prolonged hospital course due to inability to find placement; Active issues: Stage I-II sacral decubitus ulcer - 2 stage II ulcers seen on either side of superior sacral crease, 1 x 1 cm and 2 x 1 cm in size; will re-emphasize need for frequent repositioning and application of protective ointment; Hypernatremia, resolved; Urinary retention - Currently resolved but will get periodic bladder scans; CAD s/p WILLIE - On ASA/plavix and coreg, continue. 02/09/17 19:29
[2017-02-10] MEDS: Enoxaparin 40 mg Syringe SC SCH (10:46)
--- NOTE | 2017-02-10 15:54 | CP.PCM.PN ---
<Michel Ferris - Last Filed: 02/10/17 15:51> Subjective - Date & Time of Evaluation Date of Evaluation: 02/10/17 Time of Evaluation: 15:52 - Subjective Subjective: PGY-1 note for medicine service Pt seen and examined at bedside. No overnight events. Objective - Vital Signs/Intake and Output Vital Signs (last 24 hours): Temp Pulse Resp BP Pulse Ox 98.4 F 72 20 118/82 98 02/10/17 07:38 02/10/17 13:07 02/10/17 07:38 02/10/17 07:38 02/10/17 07:38 Intake and Output: 02/10/17 02/10/17 06:59 18:59 Intake Total 1850 880 Output Total 900 300 Balance 950 580 - Medications Medications: Current Medications Aspirin (Aspirin Chewable) 81 mg PEG DAILY [facility] Last Admin: 02/10/17 10:45 Dose: 81 mg Bethanechol Chloride (Urecholine) 50 mg PEG TID [facility] Last Admin: 02/10/17 14:31 Dose: 50 mg Carvedilol (Coreg) 3.125 mg PEG BID [facility] Last Admin: 02/10/17 10:45 Dose: 3.125 mg Clopidogrel Bisulfate (Plavix) 75 mg PEG DAILY [facility] Last Admin: 02/10/17 10:45 Dose: 75 mg Emollient Ointment (Vaseline Oint) 5 gm TOP BID PRN PRN Reason: Dry skin Last Admin: 01/31/17 11:27 Dose: 5 gm Enoxaparin Sodium (Lovenox) 40 mg SC DAILY [facility] Last Admin: 02/10/17 10:46 Dose: 40 mg Famotidine (Pepcid) 20 mg PEG BID [facility] Last Admin: 02/10/17 10:45 Dose: 20 mg Finasteride (Proscar) 5 mg PEG DAILY [facility] Last Admin: 02/10/17 10:47 Dose: 5 mg Tamsulosin HCl (Flomax) 0.4 mg PEG DAILY [facility] Last Admin: 02/10/17 10:45 Dose: 0.4 mg - Labs Labs: 02/09/17 08:30 02/09/17 08:30 PT 10.6 SECONDS (9.7-12.2) 11/24/15 14:10 INR 1.0 11/24/15 14:10 APTT 25 SECONDS (21-34) 11/24/15 14:10 - Constitutional Appears: Chronically Ill - Head Exam Head Exam: ATRAUMATIC, NORMOCEPHALIC - ENT Exam ENT Exam: Mucous Membranes Moist - Respiratory Exam Respiratory Exam: NORMAL BREATHING PATTERN Additional comments: breathing through trach - Cardiovascular Exam Cardiovascular Exam: +S1, +S2 - GI/Abdominal Exam GI & Abdominal Exam: Soft, Normal Bowel Sounds - Skin Skin Exam: Dry, Warm Assessment and Plan - Assessment and Plan (Free Text) Assessment: Anoxic brain injury s/p cardiac arrest in 05/2015 no acute changes Awake, not alert, not sedated continue current management Stable Urinary Retention Flomax 0.4mg PEG daily Proscar 5mg PEG daily continue Bethanecol 50mg PEG TID- started after persistent retention and found to be effective. monitor I's and O's check bladder scan for residual urine three times weekly 02/04: bladder scan today, 50cc 01/29: condom cath in place 01/28: condom catheter displaced, so difficult to measure accurate output, but patient not retaining urine 01/27: yesterday was straight cath'd with 60cc clear cherie urine. bladder scan done twice with minimal residual urine seen. 01/18: 50 cc residual Sacral Ulcers Small area stage II in upper gluteal cleft- pink base Stage II ulcer present on sacrum Continue frequent turning, protective ointment and skin checks. 01/07- wound care saw patient, air mattress adjusted and protective ointment applied to sacrum Continue wound care Respiratory failure trach collar in place - normal resp pattern, respiratory suctioned pt, improved 02/07: instructed nursing to give guanifesin for thickened secretions 01/12- starting mucinex for secretions CAD (coronary artery disease) s/p cardiac stents on 06/13/15 ASA 81mg via PEG daily Coreg 3.125mg PEG BID Plavix 75mg PO daily Seizures Keppra 500mg PEG BID for seizure prophylaxis Monitor Lower extremity edema Lasix via PEG as needed. Monitor Hypernatremia- resolved Free water flushes of 100cc during each bowel rest 02/02/17: Na of 142 01/26/17: Na of 139 01/11 Na of 145 01/19 sodium 142 PEG tube dysfunction- resolved IR placed new PEG 01/06, functioning appropriately Cont tube feeding UTI- resolved CBI discontinued 01/08, baker catheter removed, Condom catheter- voiding yellow/ slightly cloudy urine Monitor 12/30- Triple lumen Baker in place for irrigation, added neosporin to CBI Urine Culture 12/03/16 - Positive Kleb pneumo, sensitive to cipro - resolved. Off antibiotics now Prophylactic measure Pepcid 20 mg PEG BID Lovenox 40mg SC daily SCDs and offloading boots continue to turn and reposition q2h Continue to monitor medication administrations and clinical presentation weekly labs- last drawn 02/09/17 <Nathaniel Beth - Last Filed: 03/03/17 22:34> Objective - Vital Signs/Intake and Output Vital Signs (last 24 hours): Temp Pulse Resp BP Pulse Ox 98.5 F 79 18 112/68 98 03/03/17 16:00 03/03/17 16:00 03/03/17 16:00 03/03/17 16:00 03/03/17 16:00 Intake and Output: 03/03/17 03/04/17 18:59 06:59 Intake Total 880 Output Total 200 Balance 680 - Medications Medications: Current Medications Aspirin (Aspirin Chewable) 81 mg PEG DAILY [facility] Last Admin: 03/03/17 09:12 Dose: 81 mg Bethanechol Chloride (Urecholine) 50 mg PEG TID [facility] Last Admin: 03/03/17 13:56 Dose: 50 mg Bisacodyl (Dulcolax) 5 mg PO Q72H PRN PRN Reason: Constipation Carvedilol (Coreg) 3.125 mg PEG BID [facility] Last Admin: 03/03/17 09:12 Dose: 3.125 mg Clopidogrel Bisulfate (Plavix) 75 mg PEG DAILY [facility] Last Admin: 03/03/17 09:12 Dose: 75 mg Emollient Ointment (Vaseline Oint) 5 gm TOP BID PRN PRN Reason: Dry skin Enoxaparin Sodium (Lovenox) 40 mg SC DAILY [facility] Last Admin: 03/03/17 09:12 Dose: 40 mg Famotidine (Pepcid) 20 mg PEG BID [facility] Last Admin: 03/03/17 09:12 Dose: 20 mg Finasteride (Proscar) 5 mg PEG DAILY [facility] Last Admin: 03/03/17 09:12 Dose: 5 mg Levetiracetam (Keppra) 500 mg PEG BID [facility] Last Admin: 03/03/17 09:11 Dose: 500 mg Tamsulosin HCl (Flomax) 0.4 mg PEG DAILY [facility] Last Admin: 03/03/17 09:12 Dose: 0.4 mg - Labs Labs: 03/02/17 06:03 03/02/17 06:03 PT 10.6 SECONDS (9.7-12.2) 11/24/15 14:10 INR 1.0 11/24/15 14:10 APTT 25 SECONDS (21-34) 11/24/15 14:10 Attending/Attestation - Attestation I have personally seen and examined this patient.: Yes I have fully participated in the care of the patient.: Yes I have reviewed all pertinent clinical information, including history, physical exam and plan: Yes
[2017-02-11] MEDS: Enoxaparin 40 mg Syringe SC SCH (09:08)
--- NOTE | 2017-02-11 16:36 | CP.PCM.PN ---
<Michel Ferris - Last Filed: 02/11/17 16:33> Subjective - Date & Time of Evaluation Date of Evaluation: 02/11/17 Time of Evaluation: 16:33 - Subjective Subjective: PGY-1 note for medicine service Pt seen and examined at bedside. Per staff, pt had some blood at trach site. Respiratory came and saw the pt, suctioned and saw that the blood was just around the trach site and not down in the trachea. No more blood observed after suctioning. No other events Objective - Vital Signs/Intake and Output Vital Signs (last 24 hours): Temp Pulse Resp BP Pulse Ox 97.9 F 68 20 112/75 96 02/11/17 07:36 02/11/17 11:48 02/11/17 07:36 02/11/17 07:36 02/11/17 07:36 Intake and Output: 02/11/17 02/11/17 06:59 18:59 Intake Total 1760 Output Total 800 400 Balance 960 -400 - Medications Medications: Current Medications Aspirin (Aspirin Chewable) 81 mg PEG DAILY [facility] Last Admin: 02/11/17 09:08 Dose: 81 mg Bethanechol Chloride (Urecholine) 50 mg PEG TID [facility] Last Admin: 02/11/17 13:53 Dose: 50 mg Carvedilol (Coreg) 3.125 mg PEG BID [facility] Last Admin: 02/11/17 09:08 Dose: 3.125 mg Clopidogrel Bisulfate (Plavix) 75 mg PEG DAILY [facility] Last Admin: 02/11/17 09:08 Dose: 75 mg Emollient Ointment (Vaseline Oint) 5 gm TOP BID PRN PRN Reason: Dry skin Last Admin: 01/31/17 11:27 Dose: 5 gm Enoxaparin Sodium (Lovenox) 40 mg SC DAILY [facility] Last Admin: 02/11/17 09:08 Dose: 40 mg Famotidine (Pepcid) 20 mg PEG BID [facility] Last Admin: 02/11/17 09:08 Dose: 20 mg Finasteride (Proscar) 5 mg PEG DAILY [facility] Last Admin: 02/11/17 09:09 Dose: 5 mg Tamsulosin HCl (Flomax) 0.4 mg PEG DAILY [facility] Last Admin: 02/11/17 09:08 Dose: 0.4 mg - Labs Labs: 02/09/17 08:30 02/09/17 08:30 PT 10.6 SECONDS (9.7-12.2) 11/24/15 14:10 INR 1.0 11/24/15 14:10 APTT 25 SECONDS (21-34) 11/24/15 14:10 - Constitutional Appears: Chronically Ill - Head Exam Head Exam: ATRAUMATIC, NORMOCEPHALIC - ENT Exam ENT Exam: Mucous Membranes Moist - Neck Exam Additional comments: trach in place - Respiratory Exam Respiratory Exam: Clear to Ausculation Bilateral, NORMAL BREATHING PATTERN - Cardiovascular Exam Cardiovascular Exam: +S1, +S2 - GI/Abdominal Exam GI & Abdominal Exam: Soft, Normal Bowel Sounds - Skin Skin Exam: Dry, Warm Assessment and Plan - Assessment and Plan (Free Text) Assessment: Anoxic brain injury s/p cardiac arrest in 05/2015 no acute changes Awake, not alert, not sedated continue current management Stable Urinary Retention Flomax 0.4mg PEG daily Proscar 5mg PEG daily continue Bethanecol 50mg PEG TID- started after persistent retention and found to be effective. monitor I's and O's check bladder scan for residual urine three times weekly 02/04: bladder scan today, 50cc 01/29: condom cath in place 01/28: condom catheter displaced, so difficult to measure accurate output, but patient not retaining urine 01/27: yesterday was straight cath'd with 60cc clear cherie urine. bladder scan done twice with minimal residual urine seen. 01/18: 50 cc residual Sacral Ulcers Small area stage II in upper gluteal cleft- pink base Stage II ulcer present on sacrum Continue frequent turning, protective ointment and skin checks. 01/07- wound care saw patient, air mattress adjusted and protective ointment applied to sacrum Continue wound care Respiratory failure trach collar in place - normal resp pattern, respiratory suctioned pt, improved 02/07: instructed nursing to give guanifesin for thickened secretions 01/12- starting mucinex for secretions CAD (coronary artery disease) s/p cardiac stents on 06/13/15 ASA 81mg via PEG daily Coreg 3.125mg PEG BID Plavix 75mg PO daily Seizures Keppra 500mg PEG BID for seizure prophylaxis Monitor Lower extremity edema Lasix via PEG as needed. Monitor Hypernatremia- resolved Free water flushes of 100cc during each bowel rest 02/02/17: Na of 142 01/26/17: Na of 139 01/11 Na of 145 01/19 sodium 142 PEG tube dysfunction- resolved IR placed new PEG 01/06, functioning appropriately Cont tube feeding UTI- resolved CBI discontinued 01/08, baker catheter removed, Condom catheter- voiding yellow/ slightly cloudy urine Monitor 12/30- Triple lumen Baker in place for irrigation, added neosporin to CBI Urine Culture 12/03/16 - Positive Kleb pneumo, sensitive to cipro - resolved. Off antibiotics now Prophylactic measure Pepcid 20 mg PEG BID Lovenox 40mg SC daily SCDs and offloading boots continue to turn and reposition q2h Continue to monitor medication administrations and clinical presentation weekly labs- last drawn 02/09/17 <Nathaniel Beth - Last Filed: 03/03/17 22:41> Objective - Vital Signs/Intake and Output Vital Signs (last 24 hours): Temp Pulse Resp BP Pulse Ox 98.5 F 79 18 112/68 98 03/03/17 16:00 03/03/17 16:00 03/03/17 16:00 03/03/17 16:00 03/03/17 16:00 Intake and Output: 03/03/17 03/04/17 18:59 06:59 Intake Total 880 Output Total 200 Balance 680 - Medications Medications: Current Medications Aspirin (Aspirin Chewable) 81 mg PEG DAILY [facility] Last Admin: 03/03/17 09:12 Dose: 81 mg Bethanechol Chloride (Urecholine) 50 mg PEG TID [facility] Last Admin: 03/03/17 13:56 Dose: 50 mg Bisacodyl (Dulcolax) 5 mg PO Q72H PRN PRN Reason: Constipation Carvedilol (Coreg) 3.125 mg PEG BID [facility] Last Admin: 03/03/17 09:12 Dose: 3.125 mg Clopidogrel Bisulfate (Plavix) 75 mg PEG DAILY [facility] Last Admin: 03/03/17 09:12 Dose: 75 mg Emollient Ointment (Vaseline Oint) 5 gm TOP BID PRN PRN Reason: Dry skin Enoxaparin Sodium (Lovenox) 40 mg SC DAILY [facility] Last Admin: 03/03/17 09:12 Dose: 40 mg Famotidine (Pepcid) 20 mg PEG BID [facility] Last Admin: 03/03/17 09:12 Dose: 20 mg Finasteride (Proscar) 5 mg PEG DAILY [facility] Last Admin: 03/03/17 09:12 Dose: 5 mg Levetiracetam (Keppra) 500 mg PEG BID [facility] Last Admin: 03/03/17 09:11 Dose: 500 mg Tamsulosin HCl (Flomax) 0.4 mg PEG DAILY [facility] Last Admin: 03/03/17 09:12 Dose: 0.4 mg - Labs Labs: 03/02/17 06:03 03/02/17 06:03 PT 10.6 SECONDS (9.7-12.2) 11/24/15 14:10 INR 1.0 11/24/15 14:10 APTT 25 SECONDS (21-34) 11/24/15 14:10 Attending/Attestation - Attestation I have personally seen and examined this patient.: Yes I have fully participated in the care of the patient.: Yes I have reviewed all pertinent clinical information, including history, physical exam and plan: Yes
[2017-02-12] MEDS: Enoxaparin 40 mg Syringe SC SCH (09:22)
[2017-02-12] MEDS: Petrolatum Oint Foilpak (5 gm) TOP PRN (09:23)
--- NOTE | 2017-02-12 10:32 | CP.PCM.PN ---
<BarringtonMichel - Last Filed: 02/12/17 14:27> Subjective - Date & Time of Evaluation Date of Evaluation: 02/12/17 Time of Evaluation: 10:28 - Subjective Subjective: PGY-1 note for medicine service Pt seen and examined at bedside. No overnight events. Will have trach replaced. No more blood observed at opening Objective - Vital Signs/Intake and Output Vital Signs (last 24 hours): Temp Pulse Resp BP Pulse Ox 98.2 F 74 20 125/77 100 02/12/17 07:33 02/12/17 07:33 02/12/17 07:33 02/12/17 07:33 02/12/17 07:33 Intake and Output: 02/12/17 02/12/17 06:59 18:59 Intake Total 880 880 Output Total 850 300 Balance 30 580 - Medications Medications: Current Medications Aspirin (Aspirin Chewable) 81 mg PEG DAILY [facility] Last Admin: 02/12/17 09:22 Dose: 81 mg Bethanechol Chloride (Urecholine) 50 mg PEG TID [facility] Last Admin: 02/12/17 09:23 Dose: 50 mg Carvedilol (Coreg) 3.125 mg PEG BID [facility] Last Admin: 02/12/17 09:23 Dose: 3.125 mg Clopidogrel Bisulfate (Plavix) 75 mg PEG DAILY [facility] Last Admin: 02/12/17 09:23 Dose: 75 mg Emollient Ointment (Vaseline Oint) 5 gm TOP BID PRN PRN Reason: Dry skin Last Admin: 02/12/17 09:23 Dose: 5 gm Enoxaparin Sodium (Lovenox) 40 mg SC DAILY [facility] Last Admin: 02/12/17 09:22 Dose: 40 mg Famotidine (Pepcid) 20 mg PEG BID [facility] Last Admin: 02/12/17 09:22 Dose: 20 mg Finasteride (Proscar) 5 mg PEG DAILY [facility] Last Admin: 02/12/17 09:22 Dose: 5 mg Tamsulosin HCl (Flomax) 0.4 mg PEG DAILY [facility] Last Admin: 02/12/17 09:23 Dose: 0.4 mg - Labs Labs: 02/09/17 08:30 02/09/17 08:30 PT 10.6 SECONDS (9.7-12.2) 11/24/15 14:10 INR 1.0 11/24/15 14:10 APTT 25 SECONDS (21-34) 11/24/15 14:10 - Constitutional Appears: Chronically Ill - Head Exam Head Exam: ATRAUMATIC, NORMOCEPHALIC - ENT Exam ENT Exam: Mucous Membranes Moist - Neck Exam Additional comments: Trach in place with no blood. Secretions noted - Respiratory Exam Respiratory Exam: Clear to Ausculation Bilateral, NORMAL BREATHING PATTERN - Cardiovascular Exam Cardiovascular Exam: +S1, +S2 - GI/Abdominal Exam GI & Abdominal Exam: Soft, Normal Bowel Sounds - Skin Skin Exam: Dry, Warm Assessment and Plan - Assessment and Plan (Free Text) Assessment: Anoxic brain injury s/p cardiac arrest in 05/2015 no acute changes Awake, not alert, not sedated continue current management Stable Blood at trach site resolved Will change out trach 02/11 blood at tracheostomy site suctioned, no blood noted deeper than opening Urinary Retention Flomax 0.4mg PEG daily Proscar 5mg PEG daily continue Bethanecol 50mg PEG TID- started after persistent retention and found to be effective. monitor I's and O's check bladder scan for residual urine three times weekly 02/04: bladder scan today, 50cc 01/29: condom cath in place 01/28: condom catheter displaced, so difficult to measure accurate output, but patient not retaining urine 01/27: yesterday was straight cath'd with 60cc clear cherie urine. bladder scan done twice with minimal residual urine seen. 01/18: 50 cc residual Sacral Ulcers Small area stage II in upper gluteal cleft- pink base Stage II ulcer present on sacrum Continue frequent turning, protective ointment and skin checks. 01/07- wound care saw patient, air mattress adjusted and protective ointment applied to sacrum Continue wound care Respiratory failure trach collar in place - normal resp pattern, respiratory suctioned pt, improved 02/07: instructed nursing to give guanifesin for thickened secretions 01/12- starting mucinex for secretions CAD (coronary artery disease) s/p cardiac stents on 06/13/15 ASA 81mg via PEG daily Coreg 3.125mg PEG BID Plavix 75mg PO daily Seizures Keppra 500mg PEG BID for seizure prophylaxis Monitor Lower extremity edema Lasix via PEG as needed. Monitor Hypernatremia- resolved Free water flushes of 100cc during each bowel rest 02/02/17: Na of 142 01/26/17: Na of 139 01/11 Na of 145 01/19 sodium 142 PEG tube dysfunction- resolved IR placed new PEG 01/06, functioning appropriately Cont tube feeding UTI- resolved CBI discontinued 01/08, baker catheter removed, Condom catheter- voiding yellow/ slightly cloudy urine Monitor 12/30- Triple lumen Baker in place for irrigation, added neosporin to CBI Urine Culture 12/03/16 - Positive Kleb pneumo, sensitive to cipro - resolved. Off antibiotics now Prophylactic measure Pepcid 20 mg PEG BID Lovenox 40mg SC daily SCDs and offloading boots continue to turn and reposition q2h Continue to monitor medication administrations and clinical presentation weekly labs- last drawn 02/09/17 <Donnell Ying - Last Filed: 02/12/17 18:21> Objective - Vital Signs/Intake and Output Vital Signs (last 24 hours): Temp Pulse Resp BP Pulse Ox 98.3 F 63 20 130/71 100 02/12/17 15:41 02/12/17 16:26 02/12/17 15:41 02/12/17 15:41 02/12/17 15:41 Intake and Output: 02/12/17 02/12/17 06:59 18:59 Intake Total 880 1760 Output Total 850 500 Balance 30 1260 - Medications Medications: Current Medications Aspirin (Aspirin Chewable) 81 mg PEG DAILY [facility] Last Admin: 02/12/17 09:22 Dose: 81 mg Bethanechol Chloride (Urecholine) 50 mg PEG TID [facility] Last Admin: 02/12/17 13:06 Dose: 50 mg Carvedilol (Coreg) 3.125 mg PEG BID [facility] Last Admin: 02/12/17 09:23 Dose: 3.125 mg Clopidogrel Bisulfate (Plavix) 75 mg PEG DAILY [facility] Last Admin: 02/12/17 09:23 Dose: 75 mg Emollient Ointment (Vaseline Oint) 5 gm TOP BID PRN PRN Reason: Dry skin Last Admin: 02/12/17 09:23 Dose: 5 gm Enoxaparin Sodium (Lovenox) 40 mg SC DAILY [facility] Last Admin: 02/12/17 09:22 Dose: 40 mg Famotidine (Pepcid) 20 mg PEG BID [facility] Last Admin: 02/12/17 09:22 Dose: 20 mg Finasteride (Proscar) 5 mg PEG DAILY [facility] Last Admin: 02/12/17 09:22 Dose: 5 mg Tamsulosin HCl (Flomax) 0.4 mg PEG DAILY [facility] Last Admin: 02/12/17 09:23 Dose: 0.4 mg - Labs Labs: 02/09/17 08:30 02/09/17 08:30 PT 10.6 SECONDS (9.7-12.2) 11/24/15 14:10 INR 1.0 11/24/15 14:10 APTT 25 SECONDS (21-34) 11/24/15 14:10 Attending/Attestation - Attestation I have personally seen and examined this patient.: Yes I have fully participated in the care of the patient.: Yes I have reviewed all pertinent clinical information, including history, physical exam and plan: Yes Notes (Text): 02/12/17 18:21 patient was seen and examined at bedside with the resident There is no change in clinical condition next week at the current management Awaiting placement
--- NOTE | 2017-02-13 10:20 | CP.PCM.PN ---
<Michel Ferris - Last Filed: 02/13/17 12:37> Subjective - Date & Time of Evaluation Date of Evaluation: 02/13/17 Time of Evaluation: 10:17 - Subjective Subjective: PGY-1 note for medicine service Pt seen and examined at bedside. No overnight events. Surgery to possibly change out trach today Objective - Vital Signs/Intake and Output Vital Signs (last 24 hours): Temp Pulse Resp BP Pulse Ox 98.2 F 83 20 109/60 98 02/13/17 07:28 02/13/17 07:28 02/13/17 07:28 02/13/17 07:28 02/13/17 07:28 Intake and Output: 02/13/17 02/13/17 06:59 18:59 Intake Total 1560 Output Total 600 Balance 960 - Medications Medications: Current Medications Aspirin (Aspirin Chewable) 81 mg PEG DAILY [facility] Last Admin: 02/12/17 09:22 Dose: 81 mg Carvedilol (Coreg) 3.125 mg PEG BID [facility] Last Admin: 02/12/17 18:00 Dose: 3.125 mg Clopidogrel Bisulfate (Plavix) 75 mg PEG DAILY [facility] Last Admin: 02/12/17 09:23 Dose: 75 mg Emollient Ointment (Vaseline Oint) 5 gm TOP BID PRN PRN Reason: Dry skin Last Admin: 02/12/17 09:23 Dose: 5 gm Enoxaparin Sodium (Lovenox) 40 mg SC DAILY [facility] Last Admin: 02/12/17 09:22 Dose: 40 mg Famotidine (Pepcid) 20 mg PEG BID [facility] Last Admin: 02/12/17 18:00 Dose: 20 mg Finasteride (Proscar) 5 mg PEG DAILY [facility] Last Admin: 02/12/17 09:22 Dose: 5 mg Tamsulosin HCl (Flomax) 0.4 mg PEG DAILY [facility] Last Admin: 02/12/17 09:23 Dose: 0.4 mg - Labs Labs: 02/09/17 08:30 02/09/17 08:30 PT 10.6 SECONDS (9.7-12.2) 11/24/15 14:10 INR 1.0 11/24/15 14:10 APTT 25 SECONDS (21-34) 11/24/15 14:10 - Constitutional Appears: Chronically Ill - Head Exam Head Exam: ATRAUMATIC, NORMOCEPHALIC - Neck Exam Additional comments: Trach in place, no blood, secretions noted - Respiratory Exam Respiratory Exam: Clear to Ausculation Bilateral, NORMAL BREATHING PATTERN - Cardiovascular Exam Cardiovascular Exam: +S1, +S2 - GI/Abdominal Exam GI & Abdominal Exam: Soft, Normal Bowel Sounds - Exam Additional comments: Condom catheter on and draining - Neurological Exam Neurological Exam: Alert, Awake - Skin Skin Exam: Dry, Warm Assessment and Plan - Assessment and Plan (Free Text) Assessment: Anoxic brain injury s/p cardiac arrest in 05/2015 no acute changes Awake, not alert, not sedated continue current management Stable Blood at trach site resolved Will change out trach 02/13/1702/11 blood at tracheostomy site suctioned, no blood noted deeper than opening Urinary Retention Flomax 0.4mg PEG daily Proscar 5mg PEG daily continue Bethanecol 50mg PEG TID- started after persistent retention and found to be effective. monitor I's and O's check bladder scan for residual urine three times weekly 02/04: bladder scan today, 50cc 01/29: condom cath in place 01/28: condom catheter displaced, so difficult to measure accurate output, but patient not retaining urine 01/27: yesterday was straight cath'd with 60cc clear cherie urine. bladder scan done twice with minimal residual urine seen. 01/18: 50 cc residual Sacral Ulcers Small area stage II in upper gluteal cleft- pink base Stage II ulcer present on sacrum Continue frequent turning, protective ointment and skin checks. 01/07- wound care saw patient, air mattress adjusted and protective ointment applied to sacrum Continue wound care Respiratory failure trach collar in place - normal resp pattern, respiratory suctioned pt, improved 02/07: instructed nursing to give guanifesin for thickened secretions 01/12- starting mucinex for secretions CAD (coronary artery disease) s/p cardiac stents on 06/13/15 ASA 81mg via PEG daily Coreg 3.125mg PEG BID Plavix 75mg PO daily Seizures Keppra 500mg PEG BID for seizure prophylaxis Monitor Lower extremity edema Lasix via PEG as needed. Monitor Hypernatremia- resolved Free water flushes of 100cc during each bowel rest 02/02/17: Na of 142 01/26/17: Na of 139 01/11 Na of 145 2/27 sodium 142 PEG tube dysfunction- resolved IR placed new PEG 01/06, functioning appropriately Cont tube feeding UTI- resolved CBI discontinued 01/08, baker catheter removed, Condom catheter- voiding yellow/ slightly cloudy urine Monitor 12/30- Triple lumen Baker in place for irrigation, added neosporin to CBI Urine Culture 12/03/16 - Positive Kleb pneumo, sensitive to cipro - resolved. Off antibiotics now Prophylactic measure Pepcid 20 mg PEG BID Lovenox 40mg SC daily SCDs and offloading boots continue to turn and reposition q2h Continue to monitor medication administrations and clinical presentation weekly labs- last drawn 02/09/17 <Donnell Ying - Last Filed: 02/16/17 15:34> Objective - Vital Signs/Intake and Output Vital Signs (last 24 hours): Temp Pulse Resp BP Pulse Ox 98.0 F 64 20 126/77 98 02/16/17 08:00 02/16/17 08:00 02/16/17 08:00 02/16/17 08:00 02/16/17 08:00 Intake and Output: 02/16/17 02/16/17 06:59 18:59 Intake Total 480 780 Output Total 400 550 Balance 80 230 - Medications Medications: Current Medications Aspirin (Aspirin Chewable) 81 mg PEG DAILY [facility] Last Admin: 02/16/17 10:49 Dose: 81 mg Bethanechol Chloride (Urecholine) 50 mg PEG TID [facility] Last Admin: 02/16/17 14:19 Dose: 50 mg Carvedilol (Coreg) 3.125 mg PEG BID [facility] Last Admin: 02/16/17 10:50 Dose: 3.125 mg Clopidogrel Bisulfate (Plavix) 75 mg PEG DAILY [facility] Last Admin: 02/16/17 10:50 Dose: 75 mg Emollient Ointment (Vaseline Oint) 5 gm TOP BID PRN PRN Reason: Dry skin Last Admin: 02/12/17 09:23 Dose: 5 gm Enoxaparin Sodium (Lovenox) 40 mg SC DAILY [facility] Last Admin: 02/16/17 10:50 Dose: 40 mg Famotidine (Pepcid) 20 mg PEG BID [facility] Last Admin: 02/16/17 10:50 Dose: 20 mg Finasteride (Proscar) 5 mg PEG DAILY [facility] Last Admin: 02/16/17 10:51 Dose: 5 mg Levetiracetam (Keppra) 500 mg PEG BID [facility] Last Admin: 02/16/17 10:50 Dose: 500 mg Tamsulosin HCl (Flomax) 0.4 mg PEG DAILY [facility] Last Admin: 02/16/17 10:49 Dose: 0.4 mg - Labs Labs: 02/16/17 07:14 02/16/17 07:14 PT 10.6 SECONDS (9.7-12.2) 11/24/15 14:10 INR 1.0 11/24/15 14:10 APTT 25 SECONDS (21-34) 11/24/15 14:10 Attending/Attestation - Attestation I have personally seen and examined this patient.: Yes I have fully participated in the care of the patient.: Yes I have reviewed all pertinent clinical information, including history, physical exam and plan: Yes Notes (Text): 02/16/17 15:34 Patient was seen and examined at bedside with the resident No change in clinical condition Continue current management Awaiting placement
[2017-02-13] MEDS: Enoxaparin 40 mg Syringe SC SCH (11:11)
[2017-02-13] MEDS: levETIRAcetam 100 mg/ml (5ml) Oral Syringe PEG SCH ×2 (13:13→18:27)
[2017-02-14] MEDS: Enoxaparin 40 mg Syringe SC SCH (10:41)
[2017-02-14] MEDS: levETIRAcetam 100 mg/ml (5ml) Oral Syringe PEG SCH ×2 (10:53→18:40)
--- NOTE | 2017-02-14 17:39 | CP.PCM.PN ---
<Michel Ferris - Last Filed: 02/14/17 17:37> Subjective - Date & Time of Evaluation Date of Evaluation: 02/14/17 Time of Evaluation: 17:37 - Subjective Subjective: PGY-1 note for medicine service Pt seen and examined at bedside. No overnight events. Observed to be resting comfortably Objective - Vital Signs/Intake and Output Vital Signs (last 24 hours): Temp Pulse Resp BP Pulse Ox 98.2 F 74 20 113/81 100 02/14/17 16:00 02/14/17 16:00 02/14/17 16:00 02/14/17 16:00 02/14/17 16:00 Intake and Output: 02/14/17 02/14/17 06:59 18:59 Intake Total 1760 780 Output Total 1400 500 Balance 360 280 - Medications Medications: Current Medications Aspirin (Aspirin Chewable) 81 mg PEG DAILY [facility] [place] Last Admin: 02/14/17 10:40 Dose: 81 mg Bethanechol Chloride (Urecholine) 50 mg PEG TID [facility] Last Admin: 02/14/17 14:21 Dose: 50 mg Carvedilol (Coreg) 3.125 mg PEG BID [facility] [place] Last Admin: 02/14/17 10:41 Dose: 3.125 mg Clopidogrel Bisulfate (Plavix) 75 mg PEG DAILY [facility] [place] Last Admin: 02/14/17 10:40 Dose: 75 mg Emollient Ointment (Vaseline Oint) 5 gm TOP BID PRN PRN Reason: Dry skin Last Admin: 02/12/17 09:23 Dose: 5 gm Enoxaparin Sodium (Lovenox) 40 mg SC DAILY [facility] Last Admin: 02/14/17 10:41 Dose: 40 mg Famotidine (Pepcid) 20 mg PEG BID [facility] Last Admin: 02/14/17 10:40 Dose: 20 mg Finasteride (Proscar) 5 mg PEG DAILY [facility] Last Admin: 02/14/17 10:53 Dose: 5 mg Levetiracetam (Keppra) 500 mg PEG BID [facility] [place] Last Admin: 02/14/17 10:53 Dose: 500 mg Tamsulosin HCl (Flomax) 0.4 mg PEG DAILY [facility] [facility] Last Admin: 02/14/17 10:41 Dose: 0.4 mg - Labs Labs: 02/09/17 08:30 02/09/17 08:30 PT 10.6 SECONDS (9.7-12.2) 11/24/15 14:10 INR 1.0 11/24/15 14:10 APTT 25 SECONDS (21-34) 11/24/15 14:10 - Constitutional Appears: Chronically Ill - Head Exam Head Exam: ATRAUMATIC, NORMOCEPHALIC - ENT Exam ENT Exam: Mucous Membranes Moist - Neck Exam Additional comments: trach noted - Respiratory Exam Respiratory Exam: Clear to Ausculation Bilateral, NORMAL BREATHING PATTERN - Cardiovascular Exam Cardiovascular Exam: +S1, +S2 - GI/Abdominal Exam GI & Abdominal Exam: Soft, Normal Bowel Sounds - Exam Additional comments: Condom cath in place - Skin Skin Exam: Dry, Warm Assessment and Plan - Assessment and Plan (Free Text) Assessment: Anoxic brain injury s/p cardiac arrest in 05/2015 no acute changes Awake, not alert, not sedated continue current management Stable Blood at trach site resolved Will change out trach 02/13/1702/11 blood at tracheostomy site suctioned, no blood noted deeper than opening Urinary Retention Flomax 0.4mg PEG daily Proscar 5mg PEG daily continue Bethanecol 50mg PEG TID- started after persistent retention and found to be effective. monitor I's and O's check bladder scan for residual urine three times weekly 02/04: bladder scan today, 50cc 01/29: condom cath in place 01/28: condom catheter displaced, so difficult to measure accurate output, but patient not retaining urine 01/27: yesterday was straight cath'd with 60cc clear cherie urine. bladder scan done twice with minimal residual urine seen. 01/18: 50 cc residual Sacral Ulcers Small area stage II in upper gluteal cleft- pink base Stage II ulcer present on sacrum Continue frequent turning, protective ointment and skin checks. 01/07- wound care saw patient, air mattress adjusted and protective ointment applied to sacrum Continue wound care Respiratory failure trach collar in place - normal resp pattern, respiratory suctioned pt, improved 02/07: instructed nursing to give guanifesin for thickened secretions 01/12- starting mucinex for secretions CAD (coronary artery disease) s/p cardiac stents on 06/13/15 ASA 81mg via PEG daily Coreg 3.125mg PEG BID Plavix 75mg PO daily Seizures Keppra 500mg PEG BID for seizure prophylaxis Monitor Lower extremity edema Lasix via PEG as needed. Monitor Hypernatremia- resolved Free water flushes of 100cc during each bowel rest 02/02/17: Na of 142 01/26/17: Na of 139 01/11 Na of 145 01/19 sodium 142 PEG tube dysfunction- resolved IR placed new PEG 01/06, functioning appropriately Cont tube feeding UTI- resolved CBI discontinued 01/08, baker catheter removed, Condom catheter- voiding yellow/ slightly cloudy urine Monitor 12/30- Triple lumen Baker in place for irrigation, added neosporin to CBI Urine Culture 12/03/16 - Positive Kleb pneumo, sensitive to cipro - resolved. Off antibiotics now Prophylactic measure Pepcid 20 mg PEG BID Lovenox 40mg SC daily SCDs and offloading boots continue to turn and reposition q2h Continue to monitor medication administrations and clinical presentation weekly labs- last drawn 02/09/17 <Nathaniel Beth - Last Filed: 03/03/17 22:46> Objective - Vital Signs/Intake and Output Vital Signs (last 24 hours): Temp Pulse Resp BP Pulse Ox 98.5 F 79 18 112/68 98 03/03/17 16:00 03/03/17 16:00 03/03/17 16:00 03/03/17 16:00 03/03/17 16:00 Intake and Output: 03/03/17 03/04/17 18:59 06:59 Intake Total 880 Output Total 200 Balance 680 - Medications Medications: Current Medications Aspirin (Aspirin Chewable) 81 mg PEG DAILY [facility] [place] Last Admin: 03/03/17 09:12 Dose: 81 mg Bethanechol Chloride (Urecholine) 50 mg PEG TID [facility] [place] Last Admin: 03/03/17 13:56 Dose: 50 mg Bisacodyl (Dulcolax) 5 mg PO Q72H PRN PRN Reason: Constipation Carvedilol (Coreg) 3.125 mg PEG BID [facility] [place] Last Admin: 03/03/17 09:12 Dose: 3.125 mg Clopidogrel Bisulfate (Plavix) 75 mg PEG DAILY [facility] [place] Last Admin: 03/03/17 09:12 Dose: 75 mg Emollient Ointment (Vaseline Oint) 5 gm TOP BID PRN PRN Reason: Dry skin Enoxaparin Sodium (Lovenox) 40 mg SC DAILY [facility] [place] Last Admin: 03/03/17 09:12 Dose: 40 mg Famotidine (Pepcid) 20 mg PEG BID [facility] Last Admin: 03/03/17 09:12 Dose: 20 mg Finasteride (Proscar) 5 mg PEG DAILY [facility] Last Admin: 03/03/17 09:12 Dose: 5 mg Levetiracetam (Keppra) 500 mg PEG BID [facility] [place] Last Admin: 03/03/17 09:11 Dose: 500 mg Tamsulosin HCl (Flomax) 0.4 mg PEG DAILY [facility] [place] Last Admin: 03/03/17 09:12 Dose: 0.4 mg - Labs Labs: 03/02/17 06:03 03/02/17 06:03 PT 10.6 SECONDS (9.7-12.2) 11/24/15 14:10 INR 1.0 11/24/15 14:10 APTT 25 SECONDS (21-34) 11/24/15 14:10 Attending/Attestation - Attestation I have personally seen and examined this patient.: Yes I have fully participated in the care of the patient.: Yes I have reviewed all pertinent clinical information, including history, physical exam and plan: Yes
[2017-02-15] MEDS: levETIRAcetam 100 mg/ml (5ml) Oral Syringe PEG SCH ×2 (12:03→18:24)
[2017-02-15] MEDS: Enoxaparin 40 mg Syringe SC SCH (12:04)
--- NOTE | 2017-02-15 16:54 | CP.PCM.PN ---
<Michel Ferris - Last Filed: 02/15/17 16:51> Subjective - Date & Time of Evaluation Date of Evaluation: 02/15/17 Time of Evaluation: 16:51 - Subjective Subjective: PGY-1 note for medicine service Pt seen and examined at bedside. No overnight events. Objective - Vital Signs/Intake and Output Vital Signs (last 24 hours): Temp Pulse Resp BP Pulse Ox 98.1 F 76 20 110/68 97 02/15/17 08:00 02/15/17 13:35 02/15/17 08:00 02/15/17 08:00 02/15/17 08:00 Intake and Output: 02/15/17 02/15/17 06:59 18:59 Intake Total 780 1660 Output Total 400 1000 Balance 380 660 - Medications Medications: Current Medications Aspirin (Aspirin Chewable) 81 mg PEG DAILY [facility] Last Admin: 02/15/17 12:03 Dose: 81 mg Bethanechol Chloride (Urecholine) 50 mg PEG TID [facility] Last Admin: 02/15/17 14:00 Dose: 50 mg Carvedilol (Coreg) 3.125 mg PEG BID [facility] Last Admin: 02/15/17 12:04 Dose: 3.125 mg Clopidogrel Bisulfate (Plavix) 75 mg PEG DAILY [facility] Last Admin: 02/15/17 12:04 Dose: 75 mg Emollient Ointment (Vaseline Oint) 5 gm TOP BID PRN PRN Reason: Dry skin Last Admin: 02/12/17 09:23 Dose: 5 gm Enoxaparin Sodium (Lovenox) 40 mg SC DAILY [facility] Last Admin: 02/15/17 12:04 Dose: 40 mg Famotidine (Pepcid) 20 mg PEG BID [facility] Last Admin: 02/15/17 12:04 Dose: 20 mg Finasteride (Proscar) 5 mg PEG DAILY [facility] Last Admin: 02/15/17 12:04 Dose: 5 mg Levetiracetam (Keppra) 500 mg PEG BID [facility] Last Admin: 02/15/17 12:03 Dose: 500 mg Tamsulosin HCl (Flomax) 0.4 mg PEG DAILY [facility] Last Admin: 02/15/17 12:04 Dose: 0.4 mg - Labs Labs: 02/09/17 08:30 02/09/17 08:30 PT 10.6 SECONDS (9.7-12.2) 11/24/15 14:10 INR 1.0 11/24/15 14:10 APTT 25 SECONDS (21-34) 11/24/15 14:10 - Constitutional Appears: Chronically Ill - Head Exam Head Exam: ATRAUMATIC, NORMOCEPHALIC - ENT Exam ENT Exam: Mucous Membranes Moist - Neck Exam Additional comments: trach noted - Respiratory Exam Respiratory Exam: Clear to Ausculation Bilateral, NORMAL BREATHING PATTERN - Cardiovascular Exam Cardiovascular Exam: +S1, +S2 - GI/Abdominal Exam GI & Abdominal Exam: Soft, Normal Bowel Sounds - Skin Skin Exam: Dry, Warm Assessment and Plan - Assessment and Plan (Free Text) Assessment: Anoxic brain injury s/p cardiac arrest in 05/2015 no acute changes Awake, not alert, not sedated continue current management Stable Blood at trach site resolved Will change out trach 02/13/1702/11 blood at tracheostomy site suctioned, no blood noted deeper than opening Urinary Retention Flomax 0.4mg PEG daily Proscar 5mg PEG daily continue Bethanecol 50mg PEG TID- started after persistent retention and found to be effective. monitor I's and O's check bladder scan for residual urine three times weekly 02/04: bladder scan today, 50cc 01/29: condom cath in place 01/28: condom catheter displaced, so difficult to measure accurate output, but patient not retaining urine 01/27: yesterday was straight cath'd with 60cc clear cherie urine. bladder scan done twice with minimal residual urine seen. 01/18: 50 cc residual Sacral Ulcers Small area stage II in upper gluteal cleft- pink base Stage II ulcer present on sacrum Continue frequent turning, protective ointment and skin checks. 01/07- wound care saw patient, air mattress adjusted and protective ointment applied to sacrum Continue wound care Respiratory failure trach collar in place - normal resp pattern, respiratory suctioned pt, improved 02/07: instructed nursing to give guanifesin for thickened secretions 01/12- starting mucinex for secretions CAD (coronary artery disease) s/p cardiac stents on 06/13/15 ASA 81mg via PEG daily Coreg 3.125mg PEG BID Plavix 75mg PO daily Seizures Keppra 500mg PEG BID for seizure prophylaxis Monitor Lower extremity edema Lasix via PEG as needed. Monitor Hypernatremia- resolved Free water flushes of 100cc during each bowel rest 02/02/17: Na of 142 01/26/17: Na of 139 01/11 Na of 145 01/19 sodium 142 PEG tube dysfunction- resolved IR placed new PEG 01/06, functioning appropriately Cont tube feeding UTI- resolved CBI discontinued 01/08, baker catheter removed, Condom catheter- voiding yellow/ slightly cloudy urine Monitor 12/30- Triple lumen Baker in place for irrigation, added neosporin to CBI Urine Culture 12/03/16 - Positive Kleb pneumo, sensitive to cipro - resolved. Off antibiotics now Prophylactic measure Pepcid 20 mg PEG BID Lovenox 40mg SC daily SCDs and offloading boots continue to turn and reposition q2h Continue to monitor medication administrations and clinical presentation weekly labs- last drawn 02/09/17 <Nathaniel Beth - Last Filed: 02/16/17 09:32> Objective - Vital Signs/Intake and Output Vital Signs (last 24 hours): Temp Pulse Resp BP Pulse Ox 97.9 F 83 20 115/75 99 02/15/17 23:56 02/15/17 23:56 02/15/17 23:56 02/15/17 23:56 02/15/17 23:56 Intake and Output: 02/16/17 02/16/17 06:59 18:59 Intake Total 480 780 Output Total 400 550 Balance 80 230 - Medications Medications: Current Medications Aspirin (Aspirin Chewable) 81 mg PEG DAILY [facility] Last Admin: 02/15/17 12:03 Dose: 81 mg Bethanechol Chloride (Urecholine) 50 mg PEG TID [facility] Last Admin: 02/15/17 18:24 Dose: 50 mg Carvedilol (Coreg) 3.125 mg PEG BID [facility] Last Admin: 02/15/17 18:24 Dose: 3.125 mg Clopidogrel Bisulfate (Plavix) 75 mg PEG DAILY [facility] Last Admin: 02/15/17 12:04 Dose: 75 mg Emollient Ointment (Vaseline Oint) 5 gm TOP BID PRN PRN Reason: Dry skin Last Admin: 02/12/17 09:23 Dose: 5 gm Enoxaparin Sodium (Lovenox) 40 mg SC DAILY [facility] Last Admin: 02/15/17 12:04 Dose: 40 mg Famotidine (Pepcid) 20 mg PEG BID [facility] Last Admin: 02/15/17 18:25 Dose: 20 mg Finasteride (Proscar) 5 mg PEG DAILY [facility] Last Admin: 02/15/17 12:04 Dose: 5 mg Levetiracetam (Keppra) 500 mg PEG BID [facility] Last Admin: 02/15/17 18:24 Dose: 500 mg Tamsulosin HCl (Flomax) 0.4 mg PEG DAILY [facility] Last Admin: 02/15/17 12:04 Dose: 0.4 mg - Labs Labs: 02/16/17 07:14 02/16/17 07:14 PT 10.6 SECONDS (9.7-12.2) 11/24/15 14:10 INR 1.0 11/24/15 14:10 APTT 25 SECONDS (21-34) 11/24/15 14:10 Attending/Attestation - Attestation I have personally seen and examined this patient.: Yes I have fully participated in the care of the patient.: Yes I have reviewed all pertinent clinical information, including history, physical exam and plan: Yes Notes (Text): Patient with anoxic encephlopathy s/p cardiac arrest, prolonged hospital stay due to inability to find placement; Active issues: Stage I sacral decubitus ulcer - Appears improved; was previously stage II; continue frequent repositioning and protective ointment; Hypernatremia - Resolved; monitor, continue free water flushes 400 cc q8h; Urinary retention - Resolved; continue bethanecol; Recurrent UTI - Likely colonized; s/p bladder irrigation last month; will only treat if signs of sepsis; CAD s/p stent - continue ASA, plavix and coreg.
[2017-02-16 07:33] LABS: ALBUMIN 3.6 g/dL (3.5-5.0)
[2017-02-16 07:36] LABS: ALB/GLOB RATIO 0.9 (1.0-2.1); AST/SGOT 27 U/L (17-59); BLOOD UREA NITROGEN 15 mg/dL (9-20); GFR NON-AFRICAN AMERICAN > 60
[2017-02-16 07:37] LABS: ALT/SGPT 60 U/L (21-72); BASO % 0.5 % (0.0-2.0); CALCIUM 8.4 mg/dl (8.6-10.4); EOS # 0.4 K/uL (0.0-0.7); EOS % 4.2 % (0.0-4.0); LYMPH # 2.4 K/uL (1.0-4.3); LYMPH % 26.6 % (20.0-40.0); MEAN CORPUSCULAR HEMOGLOBIN 28.4 pg (27.0-31.0); MEAN CORPUSCULAR HGB CONC 32.3 g/dL (33.0-37.0); MEAN PLATELET VOLUME 9.4 fL (7.2-11.7); MONO % 11.1 % (0.0-10.0); NEUT # 5.3 K/uL (1.8-7.0); NEUT % 57.6 % (50.0-75.0); RBC 4.21 Mil/uL (4.40-5.90); RED CELL DISTRIBUTION WIDTH 15.5 % (11.5-14.5); WHITE BLOOD COUNT 9.1 K/uL (4.8-10.8)
--- NOTE | 2017-02-16 10:22 | CP.PCM.PN ---
<Ivania Bernal - Last Filed: 02/16/17 10:17> Subjective - Date & Time of Evaluation Date of Evaluation: 02/16/17 Time of Evaluation: 07:30 - Subjective Subjective: PGY-[address] Ying: Patient seen and examined at bedside. No overnight events. Trach collar and condom cath in place, bag draining urine. Patient in no acute distress. Objective - Vital Signs/Intake and Output Vital Signs (last 24 hours): Temp Pulse Resp BP Pulse Ox 97.9 F 83 20 115/75 99 02/15/17 23:56 02/15/17 23:56 02/15/17 23:56 02/15/17 23:56 02/15/17 23:56 Intake and Output: 02/16/17 02/16/17 06:59 18:59 Intake Total 480 780 Output Total 400 550 Balance 80 230 - Medications Medications: Current Medications Aspirin (Aspirin Chewable) 81 mg PEG DAILY [facility] Last Admin: 02/15/17 12:03 Dose: 81 mg Bethanechol Chloride (Urecholine) 50 mg PEG TID [facility] Last Admin: 02/15/17 18:24 Dose: 50 mg Carvedilol (Coreg) 3.125 mg PEG BID [facility] Last Admin: 02/15/17 18:24 Dose: 3.125 mg Clopidogrel Bisulfate (Plavix) 75 mg PEG DAILY [facility] Last Admin: 02/15/17 12:04 Dose: 75 mg Emollient Ointment (Vaseline Oint) 5 gm TOP BID PRN PRN Reason: Dry skin Last Admin: 02/12/17 09:23 Dose: 5 gm Enoxaparin Sodium (Lovenox) 40 mg SC DAILY [facility] Last Admin: 02/15/17 12:04 Dose: 40 mg Famotidine (Pepcid) 20 mg PEG BID [facility] Last Admin: 02/15/17 18:25 Dose: 20 mg Finasteride (Proscar) 5 mg PEG DAILY [facility] Last Admin: 02/15/17 12:04 Dose: 5 mg Levetiracetam (Keppra) 500 mg PEG BID [facility] Last Admin: 02/15/17 18:24 Dose: 500 mg Tamsulosin HCl (Flomax) 0.4 mg PEG DAILY [facility] Last Admin: 02/15/17 12:04 Dose: 0.4 mg - Labs Labs: 02/16/17 07:14 03/27/17 07:14 PT 10.6 SECONDS (9.7-12.2) 11/24/15 14:10 INR 1.0 11/24/15 14:10 APTT 25 SECONDS (21-34) 11/24/15 14:10 - Constitutional Appears: Non-toxic, No Acute Distress, Chronically Ill - Head Exam Head Exam: ATRAUMATIC, NORMAL INSPECTION - Eye Exam Eye Exam: Normal appearance, PERRL - ENT Exam ENT Exam: Mucous Membranes Moist - Respiratory Exam Respiratory Exam: Clear to Ausculation Bilateral, NORMAL BREATHING PATTERN. absent: Respiratory Distress Additional comments: Trach collar in place, no discharge noted - Cardiovascular Exam Cardiovascular Exam: REGULAR RHYTHM, +S1, +S2 - GI/Abdominal Exam GI & Abdominal Exam: Soft, Normal Bowel Sounds. absent: Distended, Firm, Guarding, Tenderness - Extremities Exam Extremities Exam: Normal Inspection. absent: Calf Tenderness, Pedal Edema - Back Exam Back Exam: NORMAL INSPECTION. absent: CVA tenderness (L), CVA tenderness (R), paraspinal tenderness - Neurological Exam Neurological Exam: Awake. absent: Alert, Oriented x3 - Skin Skin Exam: Dry, Intact, Normal Color, Warm Additional comments: Small area stage II in upper gluteal cleft- pink base Assessment and Plan - Assessment and Plan (Free Text) Assessment: Anoxic brain injury s/p cardiac arrest in 05/2015 no acute changes Awake, not alert, not sedated continue current management Stable Blood at trach site resolved Will talk to respiratory/surg about changing the trach if needed 02/11 blood at tracheostomy site suctioned, no blood noted deeper than opening Urinary Retention Flomax 0.4mg PEG daily Proscar 5mg PEG daily continue Bethanecol 50mg PEG TID- started after persistent retention and found to be effective. monitor I's and O's check bladder scan for residual urine three times weekly 02/04: bladder scan today, 50cc 01/29: condom cath in place 01/28: condom catheter displaced, so difficult to measure accurate output, but patient not retaining urine 01/27: yesterday was straight cath'd with 60cc clear cherie urine. bladder scan done twice with minimal residual urine seen. 01/18: 50 cc residual Sacral Ulcers Small area stage II in upper gluteal cleft- pink base Stage II ulcer present on sacrum Continue frequent turning, protective ointment and skin checks. 01/07- wound care saw patient, air mattress adjusted and protective ointment applied to sacrum Continue wound care Respiratory failure trach collar in place - normal resp pattern, respiratory suctioned pt, improved 02/07: instructed nursing to give guanifesin for thickened secretions 01/12- starting mucinex for secretions CAD (coronary artery disease) s/p cardiac stents on 06/13/15 ASA 81mg via PEG daily Coreg 3.125mg PEG BID Plavix 75mg PO daily Seizures Keppra 500mg PEG BID for seizure prophylaxis Monitor Lower extremity edema Lasix via PEG as needed. Improving Monitor PEG tube dysfunction- resolved IR placed new PEG 01/06, functioning appropriately Cont tube feeding UTI- resolved CBI discontinued 01/08, baker catheter removed, Condom catheter- voiding yellow/ slightly cloudy urine Monitor 12/30- Triple lumen Baker in place for irrigation, added neosporin to CBI Urine Culture 12/03/16 - Positive Kleb pneumo, sensitive to cipro - resolved. Off antibiotics now Prophylactic measure Pepcid 20 mg PEG BID Lovenox 40mg SC daily SCDs and offloading boots continue to turn and reposition q2h Continue to monitor medication administrations and clinical presentation weekly labs- last drawn 02/09/17 <Donnell Ying - Last Filed: 02/17/17 13:44> Objective - Vital Signs/Intake and Output Vital Signs (last 24 hours): Temp Pulse Resp BP Pulse Ox 98.7 F 64 20 116/77 97 02/17/17 07:00 02/17/17 07:00 02/17/17 07:00 02/17/17 07:00 02/17/17 07:00 Intake and Output: 02/17/17 02/17/17 06:59 18:59 Intake Total 880 Output Total 250 Balance 630 - Medications Medications: Current Medications Aspirin (Aspirin Chewable) 81 mg PEG DAILY [facility] Last Admin: 02/17/17 09:16 Dose: 81 mg Bethanechol Chloride (Urecholine) 50 mg PEG TID [facility] Last Admin: 02/17/17 09:16 Dose: 50 mg Carvedilol (Coreg) 3.125 mg PEG BID [facility] Last Admin: 02/17/17 09:16 Dose: 3.125 mg Clopidogrel Bisulfate (Plavix) 75 mg PEG DAILY [facility] Last Admin: 02/17/17 09:16 Dose: 75 mg Emollient Ointment (Vaseline Oint) 5 gm TOP BID PRN PRN Reason: Dry skin Last Admin: 02/12/17 09:23 Dose: 5 gm Enoxaparin Sodium (Lovenox) 40 mg SC DAILY [facility] Last Admin: 02/17/17 09:15 Dose: 40 mg Famotidine (Pepcid) 20 mg PEG BID [facility] Last Admin: 02/17/17 09:16 Dose: 20 mg Finasteride (Proscar) 5 mg PEG DAILY [facility] Last Admin: 02/17/17 09:16 Dose: 5 mg Levetiracetam (Keppra) 500 mg PEG BID [facility] Last Admin: 02/17/17 09:15 Dose: 500 mg Tamsulosin HCl (Flomax) 0.4 mg PEG DAILY [facility] Last Admin: 02/17/17 09:16 Dose: 0.4 mg - Labs Labs: 02/16/17 07:14 02/16/17 07:14 PT 10.6 SECONDS (9.7-12.2) 11/24/15 14:10 INR 1.0 11/24/15 14:10 APTT 25 SECONDS (21-34) 11/24/15 14:10 Attending/Attestation - Attestation I have personally seen and examined this patient.: Yes I have fully participated in the care of the patient.: Yes I have reviewed all pertinent clinical information, including history, physical exam and plan: Yes Notes (Text): 02/17/17 13:44 Patient was seen and examined at bedside with the resident This is no change in clinical condition We will check for urinary retention with bladder scan periodically Continue current management
[2017-02-16] MEDS: Enoxaparin 40 mg Syringe SC SCH (10:50)
[2017-02-16] MEDS: levETIRAcetam 100 mg/ml (5ml) Oral Syringe PEG SCH ×2 (10:50→17:00)
--- NOTE | 2017-02-17 07:42 | CP.PCM.PN ---
<Ivania Bernal - Last Filed: 02/17/17 11:58> Subjective - Date & Time of Evaluation Date of Evaluation: 02/17/17 Time of Evaluation: 07:00 - Subjective Subjective: PGY-[address] Ying: Patient seen and examined at bedside. No overnight events. Trach collar and condom cath in place, bag draining urine. Patient in no acute distress. Objective - Vital Signs/Intake and Output Vital Signs (last 24 hours): Temp Pulse Resp BP Pulse Ox 97.6 F 78 20 118/80 97 02/17/17 00:00 02/17/17 00:00 02/17/17 00:00 02/17/17 00:00 02/17/17 00:00 - Medications Medications: Current Medications Aspirin (Aspirin Chewable) 81 mg PEG DAILY [facility] Last Admin: 02/16/17 10:49 Dose: 81 mg Bethanechol Chloride (Urecholine) 50 mg PEG TID [facility] Last Admin: 02/16/17 17:00 Dose: 50 mg Carvedilol (Coreg) 3.125 mg PEG BID [facility] Last Admin: 02/16/17 17:00 Dose: 3.125 mg Clopidogrel Bisulfate (Plavix) 75 mg PEG DAILY [facility] Last Admin: 02/16/17 10:50 Dose: 75 mg Emollient Ointment (Vaseline Oint) 5 gm TOP BID PRN PRN Reason: Dry skin Last Admin: 02/12/17 09:23 Dose: 5 gm Enoxaparin Sodium (Lovenox) 40 mg SC DAILY [facility] Last Admin: 02/16/17 10:50 Dose: 40 mg Famotidine (Pepcid) 20 mg PEG BID [facility] Last Admin: 02/16/17 17:00 Dose: 20 mg Finasteride (Proscar) 5 mg PEG DAILY [facility] Last Admin: 02/16/17 10:51 Dose: 5 mg Levetiracetam (Keppra) 500 mg PEG BID [facility] Last Admin: 02/16/17 17:00 Dose: 500 mg Tamsulosin HCl (Flomax) 0.4 mg PEG DAILY [facility] Last Admin: 02/16/17 10:49 Dose: 0.4 mg - Labs Labs: 02/16/17 07:14 02/16/17 07:14 PT 10.6 SECONDS (9.7-12.2) 11/24/15 14:10 INR 1.0 11/24/15 14:10 APTT 25 SECONDS (21-34) 11/24/15 14:10 - Constitutional Appears: Non-toxic, No Acute Distress, Chronically Ill - Head Exam Head Exam: ATRAUMATIC, NORMAL INSPECTION - Eye Exam Eye Exam: EOMI, PERRL Pupil Exam: NORMAL ACCOMODATION - ENT Exam ENT Exam: Mucous Membranes Moist - Respiratory Exam Respiratory Exam: Clear to Ausculation Bilateral, NORMAL BREATHING PATTERN. absent: Accessory Muscle Use, Prolonged Expiratory Phase, Respiratory Distress Additional comments: Trach collar in place - Cardiovascular Exam Cardiovascular Exam: REGULAR RHYTHM, +S1, +S2 - GI/Abdominal Exam GI & Abdominal Exam: Distended, Soft, Normal Bowel Sounds. absent: Firm, Guarding, Tenderness - Extremities Exam Extremities Exam: Calf Tenderness, Normal Inspection. absent: Pedal Edema Additional comments: mild b/l edema - Back Exam Back Exam: NORMAL INSPECTION. absent: CVA tenderness (L), CVA tenderness (R), paraspinal tenderness Additional comments: sacral ulcer - Neurological Exam Neurological Exam: Awake, CN II-XII Intact. absent: Alert - Skin Skin Exam: Dry, Intact, Normal Color, Warm Assessment and Plan - Assessment and Plan (Free Text) Assessment: Anoxic brain injury s/p cardiac arrest in 05/2015 no acute changes Awake, not alert, not sedated continue current management Stable Blood at trach site resolved Will talk to respiratory/surg about changing the trach if needed 02/11 blood at tracheostomy site suctioned, no blood noted deeper than opening Urinary Retention 02/17 Bladder scan <100 cc Flomax 0.4mg PEG daily Proscar 5mg PEG daily continue Bethanecol 50mg PEG TID- started after persistent retention and found to be effective. monitor I's and O's check bladder scan for residual urine three times weekly 02/04: bladder scan today, 50cc 01/29: condom cath in place 01/28: condom catheter displaced, so difficult to measure accurate output, but patient not retaining urine 01/27: yesterday was straight cath'd with 60cc clear cherie urine. bladder scan done twice with minimal residual urine seen. 01/18: 50 cc residual Sacral Ulcers Small area stage II in upper gluteal cleft- pink base Stage II ulcer present on sacrum Continue frequent turning, protective ointment and skin checks. 01/07- wound care saw patient, air mattress adjusted and protective ointment applied to sacrum Continue wound care Respiratory failure trach collar in place - normal resp pattern, respiratory suctioned pt, improved 02/07: instructed nursing to give guanifesin for thickened secretions 01/12- starting mucinex for secretions CAD (coronary artery disease) s/p cardiac stents on 06/13/15 ASA 81mg via PEG daily Coreg 3.125mg PEG BID Plavix 75mg PO daily Seizures Keppra 500mg PEG BID for seizure prophylaxis Monitor Lower extremity edema Lasix via PEG as needed. Improving Monitor PEG tube dysfunction- resolved IR placed new PEG 01/06, functioning appropriately Cont tube feeding UTI- resolved CBI discontinued 01/08, baker catheter removed, Condom catheter- voiding yellow/ slightly cloudy urine Monitor 12/30- Triple lumen Baker in place for irrigation, added neosporin to CBI Urine Culture 12/03/16 - Positive Kleb pneumo, sensitive to cipro - resolved. Off antibiotics now Prophylactic measure Pepcid 20 mg PEG BID Lovenox 40mg SC daily SCDs and offloading boots continue to turn and reposition q2h Continue to monitor medication administrations and clinical presentation weekly labs- last drawn 02/09/17 <Donnell Ying M - Last Filed: 02/17/17 18:11> Objective - Vital Signs/Intake and Output Vital Signs (last 24 hours): Temp Pulse Resp BP Pulse Ox 98.0 F 91 H 20 92/60 L 99 02/17/17 16:00 02/17/17 16:00 02/17/17 16:00 02/17/17 16:00 02/17/17 16:00 Intake and Output: 02/17/17 02/17/17 06:59 18:59 Intake Total 880 Output Total 250 400 Balance 630 -400 - Medications Medications: Current Medications Aspirin (Aspirin Chewable) 81 mg PEG DAILY [facility] Last Admin: 02/17/17 09:16 Dose: 81 mg Bethanechol Chloride (Urecholine) 50 mg PEG TID [facility] Last Admin: 02/17/17 13:50 Dose: 50 mg Carvedilol (Coreg) 3.125 mg PEG BID [facility] Last Admin: 02/17/17 09:16 Dose: 3.125 mg Clopidogrel Bisulfate (Plavix) 75 mg PEG DAILY [facility] Last Admin: 02/17/17 09:16 Dose: 75 mg Emollient Ointment (Vaseline Oint) 5 gm TOP BID PRN PRN Reason: Dry skin Last Admin: 02/12/17 09:23 Dose: 5 gm Famotidine (Pepcid) 20 mg PEG BID [facility] Last Admin: 02/17/17 09:16 Dose: 20 mg Finasteride (Proscar) 5 mg PEG DAILY [facility] Last Admin: 02/17/17 09:16 Dose: 5 mg Levetiracetam (Keppra) 500 mg PEG BID [facility] Last Admin: 02/17/17 09:15 Dose: 500 mg Tamsulosin HCl (Flomax) 0.4 mg PEG DAILY [facility] Last Admin: 02/17/17 09:16 Dose: 0.4 mg - Labs Labs: 02/16/17 07:14 02/16/17 07:14 PT 10.6 SECONDS (9.7-12.2) 11/24/15 14:10 INR 1.0 11/24/15 14:10 APTT 25 SECONDS (21-34) 11/24/15 14:10 Attending/Attestation - Attestation I have personally seen and examined this patient.: Yes I have fully participated in the care of the patient.: Yes I have reviewed all pertinent clinical information, including history, physical exam and plan: Yes Notes (Text): 02/17/17 18:10 Patient was seen and examined at bedside with the resident Patient's abdomen appears distended We will obtain a bladder scan to see if the patient is any urinary retention We will also request dietitian reevaluation because patient appears to be gaining weight. I discussed the plan of care with the resident. We will continue current management.
[2017-02-17] MEDS: Enoxaparin 40 mg Syringe SC SCH (09:15)
[2017-02-17] MEDS: levETIRAcetam 100 mg/ml (5ml) Oral Syringe PEG SCH ×2 (09:15→21:39)
[2017-02-18] MEDS: Petrolatum Oint Foilpak (5 gm) TOP PRN (06:20)
--- NOTE | 2017-02-18 10:21 | CP.PCM.PN ---
<Ivania Bernal - Last Filed: 02/18/17 10:17> Subjective - Date & Time of Evaluation Date of Evaluation: 02/18/17 Time of Evaluation: 07:05 - Subjective Subjective: PGY-[address] Ying: Patient seen and examined at bedside. No overnight events. Trach collar and condom cath in place, bag draining urine. Patient in no acute distress. Objective - Vital Signs/Intake and Output Vital Signs (last 24 hours): Temp Pulse Resp BP Pulse Ox 98.4 F 78 20 105/74 100 02/18/17 08:05 02/18/17 08:05 02/18/17 08:05 02/18/17 08:05 02/18/17 08:05 Intake and Output: 02/18/17 02/18/17 06:59 18:59 Intake Total 1760 Output Total 1800 Balance -40 - Medications Medications: Current Medications Aspirin (Aspirin Chewable) 81 mg PEG DAILY [facility] Last Admin: 02/17/17 09:16 Dose: 81 mg Bethanechol Chloride (Urecholine) 50 mg PEG TID [facility] Last Admin: 02/17/17 21:41 Dose: 50 mg Carvedilol (Coreg) 3.125 mg PEG BID [facility] Last Admin: 02/17/17 21:42 Dose: 3.125 mg Clopidogrel Bisulfate (Plavix) 75 mg PEG DAILY [facility] Last Admin: 02/17/17 09:16 Dose: 75 mg Emollient Ointment (Vaseline Oint) 5 gm TOP BID PRN PRN Reason: Dry skin Last Admin: 02/18/17 06:20 Dose: 5 gm Famotidine (Pepcid) 20 mg PEG BID [facility] Last Admin: 02/17/17 21:41 Dose: 20 mg Finasteride (Proscar) 5 mg PEG DAILY [facility] Last Admin: 02/17/17 09:16 Dose: 5 mg Levetiracetam (Keppra) 500 mg PEG BID [facility] Last Admin: 02/17/17 21:39 Dose: 500 mg Tamsulosin HCl (Flomax) 0.4 mg PEG DAILY [facility] Last Admin: 02/17/17 09:16 Dose: 0.4 mg - Labs Labs: 02/16/17 07:14 02/16/17 07:14 PT 10.6 SECONDS (9.7-12.2) 11/24/15 14:10 INR 1.0 11/24/15 14:10 APTT 25 SECONDS (21-34) 11/24/15 14:10 - Constitutional Appears: Non-toxic, No Acute Distress - Head Exam Head Exam: NORMAL INSPECTION - Eye Exam Eye Exam: EOMI, Normal appearance, PERRL Pupil Exam: NORMAL ACCOMODATION - ENT Exam ENT Exam: Mucous Membranes Moist - Respiratory Exam Respiratory Exam: Clear to Ausculation Bilateral, NORMAL BREATHING PATTERN. absent: Respiratory Distress Additional comments: Trach collar in place - Cardiovascular Exam Cardiovascular Exam: REGULAR RHYTHM, +S1, +S2 - GI/Abdominal Exam GI & Abdominal Exam: Soft, Normal Bowel Sounds. absent: Distended, Firm, Guarding, Tenderness - Extremities Exam Extremities Exam: Pedal Edema - Back Exam Back Exam: NORMAL INSPECTION Additional comments: sacral ulcer low stage and improving. - Neurological Exam Neurological Exam: Alert, Awake, Oriented x3 - Psychiatric Exam Psychiatric exam: Normal Affect, Normal Mood - Skin Skin Exam: Dry, Intact, Normal Color, Warm Assessment and Plan - Assessment and Plan (Free Text) Assessment: Anoxic brain injury s/p cardiac arrest in 05/2015 no acute changes Awake, not alert, not sedated continue current management Stable Blood at trach site resolved Will talk to respiratory/surg about changing the trach if needed 02/11 blood at tracheostomy site suctioned, no blood noted deeper than opening Urinary Retention 02/17 Bladder scan <100 cc Flomax 0.4mg PEG daily Proscar 5mg PEG daily continue Bethanecol 50mg PEG TID- started after persistent retention and found to be effective. monitor I's and O's check bladder scan for residual urine three times weekly 02/04: bladder scan today, 50cc 01/29: condom cath in place 01/28: condom catheter displaced, so difficult to measure accurate output, but patient not retaining urine 01/27: yesterday was straight cath'd with 60cc clear cherie urine. bladder scan done twice with minimal residual urine seen. 01/18: 50 cc residual Sacral Ulcers Small area stage II in upper gluteal cleft- pink base Stage II ulcer present on sacrum Continue frequent turning, protective ointment and skin checks. 01/07- wound care saw patient, air mattress adjusted and protective ointment applied to sacrum Continue wound care Respiratory failure trach collar in place - normal resp pattern, respiratory suctioned pt, improved 02/07: instructed nursing to give guanifesin for thickened secretions 01/12- starting mucinex for secretions CAD (coronary artery disease) s/p cardiac stents on 06/13/15 ASA 81mg via PEG daily Coreg 3.125mg PEG BID Plavix 75mg PO daily Seizures Keppra 500mg PEG BID for seizure prophylaxis Monitor Lower extremity edema Lasix via PEG as needed. Improving Monitor PEG tube dysfunction- resolved IR placed new PEG 01/06, functioning appropriately Cont tube feeding UTI- resolved CBI discontinued 01/08, baker catheter removed, Condom catheter- voiding yellow/ slightly cloudy urine Monitor 12/30- Triple lumen Bakre in place for irrigation, added neosporin to CBI Urine Culture 12/03/16 - Positive Kleb pneumo, sensitive to cipro - resolved. Off antibiotics now Prophylactic measure Pepcid 20 mg PEG BID Lovenox 40mg SC daily SCDs and offloading boots continue to turn and reposition q2h Continue to monitor medication administrations and clinical presentation weekly labs- last drawn 02/09/17 Per dietary will continue tube feeds at the same rate due to nutritional needs <Donnell Ying - Last Filed: 02/18/17 17:45> Objective - Vital Signs/Intake and Output Vital Signs (last 24 hours): Temp Pulse Resp BP Pulse Ox 97.5 F L 75 20 122/80 99 02/18/17 16:01 02/18/17 16:30 02/18/17 16:01 02/18/17 16:01 02/18/17 16:01 Intake and Output: 02/18/17 02/18/17 06:59 18:59 Intake Total 1760 400 Output Total 1800 Balance -40 400 - Medications Medications: Current Medications Aspirin (Aspirin Chewable) 81 mg PEG DAILY [facility] Last Admin: 02/18/17 10:22 Dose: 81 mg Bethanechol Chloride (Urecholine) 50 mg PEG TID [facility] Last Admin: 02/18/17 14:13 Dose: 50 mg Carvedilol (Coreg) 3.125 mg PEG BID [facility] Last Admin: 02/18/17 10:22 Dose: 3.125 mg Clopidogrel Bisulfate (Plavix) 75 mg PEG DAILY [facility] Last Admin: 02/18/17 10:22 Dose: 75 mg Emollient Ointment (Vaseline Oint) 5 gm TOP BID PRN PRN Reason: Dry skin Last Admin: 02/18/17 06:20 Dose: 5 gm Famotidine (Pepcid) 20 mg PEG BID [facility] Last Admin: 02/18/17 10:22 Dose: 20 mg Finasteride (Proscar) 5 mg PEG DAILY [facility] Last Admin: 02/18/17 10:22 Dose: 5 mg Levetiracetam (Keppra) 500 mg PEG BID [facility] Last Admin: 02/18/17 12:28 Dose: 500 mg Tamsulosin HCl (Flomax) 0.4 mg PEG DAILY [facility] Last Admin: 02/18/17 10:22 Dose: 0.4 mg - Labs Labs: 02/16/17 07:14 02/16/17 07:14 PT 10.6 SECONDS (9.7-12.2) 11/24/15 14:10 INR 1.0 11/24/15 14:10 APTT 25 SECONDS (21-34) 11/24/15 14:10 Attending/Attestation - Attestation I have personally seen and examined this patient.: Yes I have fully participated in the care of the patient.: Yes I have reviewed all pertinent clinical information, including history, physical exam and plan: Yes Notes (Text): 02/18/17 17:44 Patient was seen and examined at bedside with the resident Skin examined and there is no skin break We'll continue current management
[2017-02-18] MEDS: levETIRAcetam 100 mg/ml (5ml) Oral Syringe PEG SCH ×3 (10:29→19:00)
[2017-02-19] MEDS: levETIRAcetam 100 mg/ml (5ml) Oral Syringe PEG SCH ×2 (12:09→17:10)
[2017-02-19] MEDS: Bacitracin 500 Units/gm Oint Foilpak UD TOP SCH (12:29)
--- NOTE | 2017-02-19 15:32 | CP.PCM.PN ---
<Michel Ferris - Last Filed: 02/19/17 15:28> Subjective - Date & Time of Evaluation Date of Evaluation: 02/19/17 Time of Evaluation: 15:29 - Subjective Subjective: PGY-1 note for medicine service Pt seen and examined at bedside. No overnight events per nursing, however, they do report pt having minor scratch on left forearm. Objective - Vital Signs/Intake and Output Vital Signs (last 24 hours): Temp Pulse Resp BP Pulse Ox 97.5 F L 81 20 126/80 97 02/19/17 08:00 02/19/17 08:00 02/19/17 08:00 02/19/17 08:00 02/19/17 08:00 Intake and Output: 02/19/17 02/19/17 06:59 18:59 Intake Total 880 880 Output Total 600 800 Balance 280 80 - Medications Medications: Current Medications Aspirin (Aspirin Chewable) 81 mg PEG DAILY [facility] Last Admin: 02/19/17 12:08 Dose: 81 mg Bacitracin (Bacitracin) 1 ea TOP DAILY [facility] Stop: 02/21/17 10:00 Last Admin: 02/19/17 12:29 Dose: 1 ea Bethanechol Chloride (Urecholine) 50 mg PEG TID [facility] Last Admin: 02/19/17 14:29 Dose: 50 mg Carvedilol (Coreg) 3.125 mg PEG BID [facility] Last Admin: 02/19/17 12:27 Dose: 3.125 mg Clopidogrel Bisulfate (Plavix) 75 mg PEG DAILY [facility] Last Admin: 02/19/17 12:09 Dose: 75 mg Emollient Ointment (Vaseline Oint) 5 gm TOP BID PRN PRN Reason: Dry skin Last Admin: 02/18/17 06:20 Dose: 5 gm Famotidine (Pepcid) 20 mg PEG BID [facility] Last Admin: 02/19/17 12:09 Dose: 20 mg Finasteride (Proscar) 5 mg PEG DAILY [facility] Last Admin: 02/19/17 12:27 Dose: 5 mg Levetiracetam (Keppra) 500 mg PEG BID [facility] Last Admin: 02/19/17 12:09 Dose: 500 mg Tamsulosin HCl (Flomax) 0.4 mg PEG DAILY [facility] Last Admin: 02/19/17 12:09 Dose: 0.4 mg - Labs Labs: 02/16/17 07:14 02/16/17 07:14 PT 10.6 SECONDS (9.7-12.2) 11/24/15 14:10 INR 1.0 11/24/15 14:10 APTT 25 SECONDS (21-34) 11/24/15 14:10 - Constitutional Appears: Chronically Ill - Head Exam Head Exam: ATRAUMATIC, NORMOCEPHALIC - ENT Exam ENT Exam: Mucous Membranes Moist - Neck Exam Additional comments: trach noted - Respiratory Exam Respiratory Exam: Clear to Ausculation Bilateral, NORMAL BREATHING PATTERN - Cardiovascular Exam Cardiovascular Exam: +S1, +S2 - GI/Abdominal Exam GI & Abdominal Exam: Soft, Normal Bowel Sounds - Extremities Exam Additional comments: 6 cm superficial abrasion to left forearm. - Skin Skin Exam: Dry, Warm Assessment and Plan - Assessment and Plan (Free Text) Assessment: Anoxic brain injury s/p cardiac arrest in 05/2015 no acute changes Awake, not alert, not sedated continue current management Stable Blood at trach site resolved Will talk to respiratory/surg about changing the trach if needed 02/11 blood at tracheostomy site suctioned, no blood noted deeper than opening Urinary Retention 02/17 Bladder scan <100 cc Flomax 0.4mg PEG daily Proscar 5mg PEG daily continue Bethanecol 50mg PEG TID- started after persistent retention and found to be effective. monitor I's and O's check bladder scan for residual urine three times weekly 02/04: bladder scan today, 50cc 01/29: condom cath in place 01/28: condom catheter displaced, so difficult to measure accurate output, but patient not retaining urine 01/27: yesterday was straight cath'd with 60cc clear cherie urine. bladder scan done twice with minimal residual urine seen. 01/18: 50 cc residual Sacral Ulcers Small area stage II in upper gluteal cleft- pink base Stage II ulcer present on sacrum Continue frequent turning, protective ointment and skin checks. 01/07- wound care saw patient, air mattress adjusted and protective ointment applied to sacrum Continue wound care Respiratory failure trach collar in place - normal resp pattern, respiratory suctioned pt, improved 02/07: instructed nursing to give guanifesin for thickened secretions 01/12- starting mucinex for secretions CAD (coronary artery disease) s/p cardiac stents on 06/13/15 ASA 81mg via PEG daily Coreg 3.125mg PEG BID Plavix 75mg PO daily Seizures Keppra 500mg PEG BID for seizure prophylaxis Monitor Lower extremity edema Lasix via PEG as needed. Improving Monitor PEG tube dysfunction- resolved IR placed new PEG 01/06, functioning appropriately Cont tube feeding UTI- resolved CBI discontinued 01/08, baker catheter removed, Condom catheter- voiding yellow/ slightly cloudy urine Monitor 12/30- Triple lumen Baker in place for irrigation, added neosporin to CBI Urine Culture 12/03/16 - Positive Kleb pneumo, sensitive to cipro - resolved. Off antibiotics now Prophylactic measure Pepcid 20 mg PEG BID Lovenox 40mg SC daily SCDs and offloading boots continue to turn and reposition q2h Continue to monitor medication administrations and clinical presentation weekly labs- last drawn 02/09/17 Per dietary will continue tube feeds at the same rate due to nutritional needs <Donnell Ying - Last Filed: 02/19/17 16:45> Objective - Vital Signs/Intake and Output Vital Signs (last 24 hours): Temp Pulse Resp BP Pulse Ox 98.1 F 80 20 100/67 100 02/19/17 15:56 02/19/17 15:56 02/19/17 15:56 02/19/17 15:56 02/19/17 15:56 Intake and Output: 02/19/17 02/19/17 06:59 18:59 Intake Total 880 880 Output Total 600 800 Balance 280 80 - Medications Medications: Current Medications Aspirin (Aspirin Chewable) 81 mg PEG DAILY [facility] Last Admin: 02/19/17 12:08 Dose: 81 mg Bacitracin (Bacitracin) 1 ea TOP DAILY [facility] Stop: 02/21/17 10:00 Last Admin: 02/19/17 12:29 Dose: 1 ea Bethanechol Chloride (Urecholine) 50 mg PEG TID [facility] Last Admin: 02/19/17 14:29 Dose: 50 mg Carvedilol (Coreg) 3.125 mg PEG BID [facility] Last Admin: 02/19/17 12:27 Dose: 3.125 mg Clopidogrel Bisulfate (Plavix) 75 mg PEG DAILY [facility] Last Admin: 02/19/17 12:09 Dose: 75 mg Emollient Ointment (Vaseline Oint) 5 gm TOP BID PRN PRN Reason: Dry skin Last Admin: 02/18/17 06:20 Dose: 5 gm Famotidine (Pepcid) 20 mg PEG BID [facility] Last Admin: 02/19/17 12:09 Dose: 20 mg Finasteride (Proscar) 5 mg PEG DAILY [facility] Last Admin: 02/19/17 12:27 Dose: 5 mg Levetiracetam (Keppra) 500 mg PEG BID [facility] Last Admin: 02/19/17 12:09 Dose: 500 mg Tamsulosin HCl (Flomax) 0.4 mg PEG DAILY [facility] Last Admin: 02/19/17 12:09 Dose: 0.4 mg - Labs Labs: 02/16/17 07:14 02/16/17 07:14 PT 10.6 SECONDS (9.7-12.2) 11/24/15 14:10 INR 1.0 11/24/15 14:10 APTT 25 SECONDS (21-34) 11/24/15 14:10 Attending/Attestation - Attestation I have personally seen and examined this patient.: Yes I have fully participated in the care of the patient.: Yes I have reviewed all pertinent clinical information, including history, physical exam and plan: Yes Notes (Text): 02/19/17 16:45 Patient was seen and examined at bedside There is no change in clinical condition and continue current management Discussed the plan of care with the resident and agree with the above assessment and plan by the resident
--- NOTE | 2017-02-20 07:39 | CP.PCM.PN ---
<Joel Lin - Last Filed: 02/20/17 19:47> Subjective - Date & Time of Evaluation Date of Evaluation: 02/20/17 Time of Evaluation: 10:00 - Subjective Subjective: Patient is seen and examined in room. He is resting comfortbly in room. Objective - Vital Signs/Intake and Output Vital Signs (last 24 hours): Temp Pulse Resp BP Pulse Ox 98.4 F 84 20 113/72 100 02/19/17 23:38 02/19/17 23:38 02/19/17 23:38 02/19/17 23:38 02/19/17 23:38 Intake and Output: 02/20/17 02/20/17 06:59 18:59 Intake Total 880 Output Total 300 400 Balance -300 480 - Medications Medications: Current Medications Aspirin (Aspirin Chewable) 81 mg PEG DAILY [facility] Last Admin: 02/19/17 12:08 Dose: 81 mg Bacitracin (Bacitracin) 1 ea TOP DAILY [facility] Stop: 02/21/17 10:00 Last Admin: 02/19/17 12:29 Dose: 1 ea Bethanechol Chloride (Urecholine) 50 mg PEG TID [facility] Last Admin: 02/19/17 17:10 Dose: 50 mg Carvedilol (Coreg) 3.125 mg PEG BID [facility] Last Admin: 02/19/17 17:34 Dose: Not Given Clopidogrel Bisulfate (Plavix) 75 mg PEG DAILY [facility] Last Admin: 02/19/17 12:09 Dose: 75 mg Emollient Ointment (Vaseline Oint) 5 gm TOP BID PRN PRN Reason: Dry skin Last Admin: 02/18/17 06:20 Dose: 5 gm Famotidine (Pepcid) 20 mg PEG BID [facility] Last Admin: 02/19/17 17:10 Dose: 20 mg Finasteride (Proscar) 5 mg PEG DAILY [facility] Last Admin: 02/19/17 12:27 Dose: 5 mg Levetiracetam (Keppra) 500 mg PEG BID [facility] Last Admin: 02/19/17 17:10 Dose: 500 mg Tamsulosin HCl (Flomax) 0.4 mg PEG DAILY [facility] Last Admin: 02/19/17 12:09 Dose: 0.4 mg - Labs Labs: 02/16/17 07:14 03/27/17 07:14 PT 10.6 SECONDS (9.7-12.2) 11/24/15 14:10 INR 1.0 11/24/15 14:10 APTT 25 SECONDS (21-34) 11/24/15 14:10 - Constitutional Appears: Chronically Ill - Head Exam Head Exam: ATRAUMATIC, NORMAL INSPECTION, NORMOCEPHALIC - Eye Exam Eye Exam: Normal appearance Pupil Exam: NORMAL ACCOMODATION - Respiratory Exam Respiratory Exam: Clear to Ausculation Bilateral. absent: Rhonchi, Wheezes - Cardiovascular Exam Cardiovascular Exam: REGULAR RHYTHM, RRR, +S1, +S2. absent: Gallop, Rubs - GI/Abdominal Exam GI & Abdominal Exam: Soft. absent: Tenderness - Extremities Exam Extremities Exam: Normal Inspection. absent: Pedal Edema Additional comments: small scratch noted on arm - Back Exam Back Exam: NORMAL INSPECTION - Psychiatric Exam Psychiatric exam: Normal Affect, Normal Mood - Skin Skin Exam: Normal Color, Warm Assessment and Plan - Assessment and Plan (Free Text) Assessment: Assessment: Anoxic brain injury 02/20: No changes, trach in place no signs of infection s/p cardiac arrest in 05/2015 no acute changes Awake, not alert, not sedated continue current management Stable Blood at trach site resolved Will talk to respiratory/surg about changing the trach if needed 02/11 blood at tracheostomy site suctioned, no blood noted deeper than opening Urinary Retention 02/20: condom cath in place 02/17 Bladder scan <100 cc Flomax 0.4mg PEG daily Proscar 5mg PEG daily continue Bethanecol 50mg PEG TID- started after persistent retention and found to be effective. monitor I's and O's check bladder scan for residual urine three times weekly 02/04: bladder scan today, 50cc 01/29: condom cath in place 01/28: condom catheter displaced, so difficult to measure accurate output, but patient not retaining urine 01/27: yesterday was straight cath'd with 60cc clear cherie urine. bladder scan done twice with minimal residual urine seen. 01/18: 50 cc residual Sacral Ulcers Small area stage II in upper gluteal cleft- pink base Stage II ulcer present on sacrum Continue frequent turning, protective ointment and skin checks. 01/07- wound care saw patient, air mattress adjusted and protective ointment applied to sacrum Continue wound care Respiratory failure trach collar in place - normal resp pattern, respiratory suctioned pt, improved 02/07: instructed nursing to give guanifesin for thickened secretions 01/12- starting mucinex for secretions CAD (coronary artery disease) s/p cardiac stents on 06/13/15 ASA 81mg via PEG daily Coreg 3.125mg PEG BID Plavix 75mg PO daily Seizures Keppra 500mg PEG BID for seizure prophylaxis Monitor Lower extremity edema Lasix via PEG as needed. Improving Monitor PEG tube dysfunction- resolved IR placed new PEG 01/06, functioning appropriately Cont tube feeding UTI- resolved CBI discontinued 01/08, baker catheter removed, Condom catheter- voiding yellow/ slightly cloudy urine Monitor 12/30- Triple lumen Baker in place for irrigation, added neosporin to CBI Urine Culture 12/03/16 - Positive Kleb pneumo, sensitive to cipro - resolved. Off antibiotics now Prophylactic measure Pepcid 20 mg PEG BID Lovenox 40mg SC daily SCDs and offloading boots continue to turn and reposition q2h Continue to monitor medication administrations and clinical presentation weekly labs- last drawn 02/09/17 Per dietary will continue tube feeds at the same rate due to nutritional needs <Donnell Ying - Last Filed: 02/21/17 17:28> Objective - Vital Signs/Intake and Output Vital Signs (last 24 hours): Temp Pulse Resp BP Pulse Ox 97.2 F L 69 20 114/73 98 02/21/17 16:00 02/21/17 16:00 02/21/17 16:00 02/21/17 16:00 02/21/17 16:00 Intake and Output: 02/21/17 02/21/17 06:59 18:59 Intake Total 1760 Output Total 600 400 Balance 1160 -400 - Medications Medications: Current Medications Aspirin (Aspirin Chewable) 81 mg PEG DAILY [facility] Last Admin: 02/21/17 10:00 Dose: 81 mg Bethanechol Chloride (Urecholine) 50 mg PEG TID [facility] Last Admin: 02/21/17 14:00 Dose: 50 mg Carvedilol (Coreg) 3.125 mg PEG BID [facility] Last Admin: 02/21/17 10:00 Dose: 3.125 mg Clopidogrel Bisulfate (Plavix) 75 mg PEG DAILY [facility] Last Admin: 02/21/17 10:00 Dose: 75 mg Emollient Ointment (Vaseline Oint) 5 gm TOP BID PRN PRN Reason: Dry skin Last Admin: 02/21/17 11:49 Dose: 5 gm Famotidine (Pepcid) 20 mg PEG BID [facility] Last Admin: 02/21/17 10:00 Dose: 20 mg Finasteride (Proscar) 5 mg PEG DAILY [facility] Last Admin: 02/21/17 10:00 Dose: 5 mg Levetiracetam (Keppra) 500 mg PEG BID [facility] Last Admin: 02/21/17 10:00 Dose: 500 mg Tamsulosin HCl (Flomax) 0.4 mg PEG DAILY [facility] Last Admin: 02/21/17 10:00 Dose: 0.4 mg - Labs Labs: 02/16/17 07:14 02/16/17 07:14 PT 10.6 SECONDS (9.7-12.2) 11/24/15 14:10 INR 1.0 11/24/15 14:10 APTT 25 SECONDS (21-34) 11/24/15 14:10 Attending/Attestation - Attestation I have personally seen and examined this patient.: Yes I have fully participated in the care of the patient.: Yes I have reviewed all pertinent clinical information, including history, physical exam and plan: Yes Notes (Text): 02/21/17 17:27 Patient was seen and examined at bedside with the resident Is no change in clinical condition Continue current management
[2017-02-20] MEDS: levETIRAcetam 100 mg/ml (5ml) Oral Syringe PEG SCH ×2 (10:40→17:07)
[2017-02-20] MEDS: Petrolatum Oint Foilpak (5 gm) TOP PRN (10:41)
[2017-02-20] MEDS: Bacitracin 500 Units/gm Oint Foilpak UD TOP SCH (10:41)
--- NOTE | 2017-02-21 00:23 | CP.PCM.PN ---
<Ivania Bernal - Last Filed: 02/21/17 00:21> Subjective - Date & Time of Evaluation Date of Evaluation: 02/21/17 Time of Evaluation: 00:15 - Subjective Subjective: PGY-[address] Ying: Patient seen and examined at bedside. No overnight events. Trach collar and condom cath in place, bag draining urine. Patient in no acute distress. Objective - Vital Signs/Intake and Output Vital Signs (last 24 hours): Temp Pulse Resp BP Pulse Ox 98.6 F 73 20 125/77 99 02/20/17 23:25 02/20/17 23:25 02/20/17 23:25 02/20/17 23:25 02/20/17 23:25 Intake and Output: 02/20/17 02/21/17 18:59 06:59 Intake Total 1660 880 Output Total 890 300 Balance 770 580 - Medications Medications: Current Medications Aspirin (Aspirin Chewable) 81 mg PEG DAILY [facility] Last Admin: 02/20/17 10:40 Dose: 81 mg Bacitracin (Bacitracin) 1 ea TOP DAILY [facility] Stop: 02/21/17 10:00 Last Admin: 02/20/17 10:41 Dose: 1 ea Bethanechol Chloride (Urecholine) 50 mg PEG TID [facility] Last Admin: 02/20/17 17:07 Dose: 50 mg Carvedilol (Coreg) 3.125 mg PEG BID [facility] Last Admin: 02/20/17 17:09 Dose: Not Given Clopidogrel Bisulfate (Plavix) 75 mg PEG DAILY [facility] Last Admin: 02/20/17 10:40 Dose: 75 mg Emollient Ointment (Vaseline Oint) 5 gm TOP BID PRN PRN Reason: Dry skin Last Admin: 02/20/17 10:41 Dose: 5 gm Famotidine (Pepcid) 20 mg PEG BID [facility] Last Admin: 02/20/17 17:07 Dose: 20 mg Finasteride (Proscar) 5 mg PEG DAILY [facility] Last Admin: 02/20/17 10:40 Dose: 5 mg Levetiracetam (Keppra) 500 mg PEG BID [facility] Last Admin: 02/20/17 17:07 Dose: 500 mg Tamsulosin HCl (Flomax) 0.4 mg PEG DAILY [facility] Last Admin: 02/20/17 10:40 Dose: 0.4 mg - Labs Labs: 02/16/17 07:14 02/16/17 07:14 PT 10.6 SECONDS (9.7-12.2) 11/24/15 14:10 INR 1.0 11/24/15 14:10 APTT 25 SECONDS (21-34) 11/24/15 14:10 - Constitutional Appears: Non-toxic, No Acute Distress, Chronically Ill, Other (Trach and Peg in place) - Head Exam Head Exam: ATRAUMATIC, NORMAL INSPECTION - Eye Exam Eye Exam: Normal appearance Pupil Exam: NORMAL ACCOMODATION - ENT Exam ENT Exam: Mucous Membranes Moist - Respiratory Exam Respiratory Exam: Clear to Ausculation Bilateral, NORMAL BREATHING PATTERN. absent: Respiratory Distress Additional comments: Trach in place - Cardiovascular Exam Cardiovascular Exam: REGULAR RHYTHM, +S1, +S2 - GI/Abdominal Exam GI & Abdominal Exam: Soft, Normal Bowel Sounds (PEG in place). absent: Distended, Firm, Guarding, Tenderness - Extremities Exam Extremities Exam: Normal Inspection - Back Exam Back Exam: NORMAL INSPECTION - Neurological Exam Neurological Exam: absent: Alert, Awake, Oriented x3 - Skin Skin Exam: Dry, Intact, Normal Color, Warm Assessment and Plan - Assessment and Plan (Free Text) Assessment: Anoxic brain injury s/p cardiac arrest in 05/2015 no acute changes Awake, not alert, not sedated continue current management Stable Blood at trach site resolved Will talk to respiratory/surg about changing the trach if needed 02/11 blood at tracheostomy site suctioned, no blood noted deeper than opening Urinary Retention 02/17 Bladder scan <100 cc Flomax 0.4mg PEG daily Proscar 5mg PEG daily continue Bethanecol 50mg PEG TID- started after persistent retention and found to be effective. monitor I's and O's check bladder scan for residual urine three times weekly 02/04: bladder scan today, 50cc 01/29: condom cath in place 01/28: condom catheter displaced, so difficult to measure accurate output, but patient not retaining urine 01/27: yesterday was straight cath'd with 60cc clear cherie urine. bladder scan done twice with minimal residual urine seen. 01/18: 50 cc residual Sacral Ulcers Small area stage II in upper gluteal cleft- pink base Stage II ulcer present on sacrum Continue frequent turning, protective ointment and skin checks. 01/07- wound care saw patient, air mattress adjusted and protective ointment applied to sacrum Continue wound care Respiratory failure trach collar in place - normal resp pattern, respiratory suctioned pt, improved 02/07: instructed nursing to give guanifesin for thickened secretions 01/12- starting mucinex for secretions CAD (coronary artery disease) s/p cardiac stents on 06/13/15 ASA 81mg via PEG daily Coreg 3.125mg PEG BID Plavix 75mg PO daily Seizures Keppra 500mg PEG BID for seizure prophylaxis Monitor Lower extremity edema Lasix via PEG as needed. Improving Monitor PEG tube dysfunction- resolved IR placed new PEG 01/06, functioning appropriately Cont tube feeding UTI- resolved CBI discontinued 01/08, baker catheter removed, Condom catheter- voiding yellow/ slightly cloudy urine Monitor 12/30- Triple lumen Baker in place for irrigation, added neosporin to CBI Urine Culture 12/03/16 - Positive Kleb pneumo, sensitive to cipro - resolved. Off antibiotics now Prophylactic measure Pepcid 20 mg PEG BID Lovenox 40mg SC daily SCDs and offloading boots continue to turn and reposition q2h Continue to monitor medication administrations and clinical presentation weekly labs- last drawn 02/09/17 Per dietary will continue tube feeds at the same rate due to nutritional needs <Donnell Ying - Last Filed: 02/21/17 17:56> Objective - Vital Signs/Intake and Output Vital Signs (last 24 hours): Temp Pulse Resp BP Pulse Ox 97.2 F L 69 20 114/73 98 02/21/17 16:00 02/21/17 16:00 02/21/17 16:00 02/21/17 16:00 02/21/17 16:00 Intake and Output: 02/21/17 02/21/17 06:59 18:59 Intake Total 1760 Output Total 600 400 Balance 1160 -400 - Medications Medications: Current Medications Aspirin (Aspirin Chewable) 81 mg PEG DAILY [facility] Last Admin: 02/21/17 10:00 Dose: 81 mg Bethanechol Chloride (Urecholine) 50 mg PEG TID [facility] Last Admin: 02/21/17 14:00 Dose: 50 mg Carvedilol (Coreg) 3.125 mg PEG BID [facility] Last Admin: 02/21/17 10:00 Dose: 3.125 mg Clopidogrel Bisulfate (Plavix) 75 mg PEG DAILY [facility] Last Admin: 02/21/17 10:00 Dose: 75 mg Emollient Ointment (Vaseline Oint) 5 gm TOP BID PRN PRN Reason: Dry skin Last Admin: 02/21/17 11:49 Dose: 5 gm Famotidine (Pepcid) 20 mg PEG BID [facility] Last Admin: 02/21/17 10:00 Dose: 20 mg Finasteride (Proscar) 5 mg PEG DAILY [facility] Last Admin: 02/21/17 10:00 Dose: 5 mg Levetiracetam (Keppra) 500 mg PEG BID [facility] Last Admin: 02/21/17 10:00 Dose: 500 mg Tamsulosin HCl (Flomax) 0.4 mg PEG DAILY [facility] Last Admin: 02/21/17 10:00 Dose: 0.4 mg - Labs Labs: 02/16/17 07:14 02/16/17 07:14 PT 10.6 SECONDS (9.7-12.2) 11/24/15 14:10 INR 1.0 11/24/15 14:10 APTT 25 SECONDS (21-34) 11/24/15 14:10 Attending/Attestation - Attestation I have personally seen and examined this patient.: Yes I have fully participated in the care of the patient.: Yes I have reviewed all pertinent clinical information, including history, physical exam and plan: Yes Notes (Text): 02/21/17 17:55 Patient was seen and examined at bedside with the resident today No change in clinical condition We will continue current management Turn and position every 2 hours to prevent decubitus ulcers Condoms catheter in place. Discussed with the nursing. I agree with the above history and physical and assessment/plan by the resident
[2017-02-21] MEDS: Bacitracin 500 Units/gm Oint Foilpak UD TOP SCH (10:00)
[2017-02-21] MEDS: levETIRAcetam 100 mg/ml (5ml) Oral Syringe PEG SCH ×2 (10:00→18:02)
[2017-02-21] MEDS: Petrolatum Oint Foilpak (5 gm) TOP PRN (11:49)
--- NOTE | 2017-02-22 01:15 | CP.PCM.PN ---
<Michel Ferris - Last Filed: 02/22/17 01:13> Subjective - Date & Time of Evaluation Date of Evaluation: 02/22/17 Time of Evaluation: 01:13 - Subjective Subjective: PGY-1 note for medicine service Pt seen and examined at bedside. No acute events per nursing staff. No other ROS obtainable. Objective - Vital Signs/Intake and Output Vital Signs (last 24 hours): Temp Pulse Resp BP Pulse Ox 97.2 F L 69 20 114/73 98 02/21/17 16:00 02/21/17 23:19 02/21/17 16:00 02/21/17 16:00 02/21/17 16:00 Intake and Output: 02/21/17 02/22/17 18:59 06:59 Intake Total 880 1180 Output Total 800 900 Balance 80 280 - Medications Medications: Current Medications Aspirin (Aspirin Chewable) 81 mg PEG DAILY [facility] Last Admin: 02/21/17 10:00 Dose: 81 mg Bethanechol Chloride (Urecholine) 50 mg PEG TID [facility] Last Admin: 02/21/17 18:02 Dose: 50 mg Carvedilol (Coreg) 3.125 mg PEG BID [facility] Last Admin: 02/21/17 18:02 Dose: 3.125 mg Clopidogrel Bisulfate (Plavix) 75 mg PEG DAILY [facility] Last Admin: 02/21/17 10:00 Dose: 75 mg Emollient Ointment (Vaseline Oint) 5 gm TOP BID PRN PRN Reason: Dry skin Last Admin: 02/21/17 11:49 Dose: 5 gm Famotidine (Pepcid) 20 mg PEG BID [facility] Last Admin: 02/21/17 18:02 Dose: 20 mg Finasteride (Proscar) 5 mg PEG DAILY [facility] Last Admin: 02/21/17 10:00 Dose: 5 mg Levetiracetam (Keppra) 500 mg PEG BID [facility] Last Admin: 02/21/17 18:02 Dose: 500 mg Tamsulosin HCl (Flomax) 0.4 mg PEG DAILY [facility] Last Admin: 02/21/17 10:00 Dose: 0.4 mg - Labs Labs: 02/16/17 07:14 02/16/17 07:14 PT 10.6 SECONDS (9.7-12.2) 11/24/15 14:10 INR 1.0 11/24/15 14:10 APTT 25 SECONDS (21-34) 11/24/15 14:10 - Constitutional Appears: Chronically Ill - Head Exam Head Exam: ATRAUMATIC, NORMOCEPHALIC - Eye Exam Eye Exam: Normal appearance - Neck Exam Additional comments: Trach and secretions noted - Respiratory Exam Respiratory Exam: Clear to Ausculation Bilateral, NORMAL BREATHING PATTERN - Cardiovascular Exam Cardiovascular Exam: +S1, +S2 - GI/Abdominal Exam GI & Abdominal Exam: Soft, Normal Bowel Sounds - Skin Skin Exam: Dry, Warm Assessment and Plan - Assessment and Plan (Free Text) Assessment: Anoxic brain injury s/p cardiac arrest in 05/2015 no acute changes Awake, not alert, not sedated continue current management Stable Blood at trach site resolved Will talk to respiratory/surg about changing the trach if needed 02/11 blood at tracheostomy site suctioned, no blood noted deeper than opening Urinary Retention 02/17 Bladder scan <100 cc Flomax 0.4mg PEG daily Proscar 5mg PEG daily continue Bethanecol 50mg PEG TID- started after persistent retention and found to be effective. monitor I's and O's check bladder scan for residual urine three times weekly 02/04: bladder scan today, 50cc 01/29: condom cath in place 01/28: condom catheter displaced, so difficult to measure accurate output, but patient not retaining urine 01/27: yesterday was straight cath'd with 60cc clear cherie urine. bladder scan done twice with minimal residual urine seen. 01/18: 50 cc residual Sacral Ulcers Small area stage II in upper gluteal cleft- pink base Stage II ulcer present on sacrum Continue frequent turning, protective ointment and skin checks. 01/07- wound care saw patient, air mattress adjusted and protective ointment applied to sacrum Continue wound care Respiratory failure trach collar in place - normal resp pattern, respiratory suctioned pt, improved 02/07: instructed nursing to give guanifesin for thickened secretions 01/12- starting mucinex for secretions CAD (coronary artery disease) s/p cardiac stents on 06/13/15 ASA 81mg via PEG daily Coreg 3.125mg PEG BID Plavix 75mg PO daily Seizures Keppra 500mg PEG BID for seizure prophylaxis Monitor Lower extremity edema Lasix via PEG as needed. Improving Monitor PEG tube dysfunction- resolved IR placed new PEG 01/06, functioning appropriately Cont tube feeding UTI- resolved CBI discontinued 01/08, baker catheter removed, Condom catheter- voiding yellow/ slightly cloudy urine Monitor 12/30- Triple lumen Baker in place for irrigation, added neosporin to CBI Urine Culture 12/03/16 - Positive Kleb pneumo, sensitive to cipro - resolved. Off antibiotics now Prophylactic measure Pepcid 20 mg PEG BID Lovenox 40mg SC daily SCDs and offloading boots continue to turn and reposition q2h Continue to monitor medication administrations and clinical presentation weekly labs- last drawn 02/09/17 Per dietary will continue tube feeds at the same rate due to nutritional needs <Donnell Ying - Last Filed: 02/22/17 14:27> Objective - Vital Signs/Intake and Output Vital Signs (last 24 hours): Temp Pulse Resp BP Pulse Ox 98.3 F 74 20 125/83 96 02/22/17 08:00 02/22/17 08:00 02/22/17 08:00 02/22/17 08:00 02/22/17 08:00 Intake and Output: 02/22/17 02/22/17 06:59 18:59 Intake Total 2060 Output Total 1200 Balance 860 - Medications Medications: Current Medications Aspirin (Aspirin Chewable) 81 mg PEG DAILY [facility] Last Admin: 02/22/17 11:46 Dose: 81 mg Bethanechol Chloride (Urecholine) 50 mg PEG TID [facility] Last Admin: 02/22/17 11:47 Dose: 50 mg Carvedilol (Coreg) 3.125 mg PEG BID [facility] Last Admin: 02/22/17 11:46 Dose: 3.125 mg Clopidogrel Bisulfate (Plavix) 75 mg PEG DAILY [facility] Last Admin: 02/22/17 11:46 Dose: 75 mg Emollient Ointment (Vaseline Oint) 5 gm TOP BID PRN PRN Reason: Dry skin Last Admin: 02/21/17 11:49 Dose: 5 gm Famotidine (Pepcid) 20 mg PEG BID [facility] Last Admin: 02/22/17 11:46 Dose: 20 mg Finasteride (Proscar) 5 mg PEG DAILY [facility] Last Admin: 02/22/17 11:47 Dose: 5 mg Levetiracetam (Keppra) 500 mg PEG BID [facility] Last Admin: 02/22/17 11:47 Dose: 500 mg Tamsulosin HCl (Flomax) 0.4 mg PEG DAILY [facility] Last Admin: 02/22/17 11:50 Dose: 0.4 mg - Labs Labs: 02/16/17 07:14 02/16/17 07:14 PT 10.6 SECONDS (9.7-12.2) 11/24/15 14:10 INR 1.0 11/24/15 14:10 APTT 25 SECONDS (21-34) 11/24/15 14:10 Attending/Attestation - Attestation I have personally seen and examined this patient.: Yes I have fully participated in the care of the patient.: Yes I have reviewed all pertinent clinical information, including history, physical exam and plan: Yes Notes (Text): 02/22/17 14:25 Patient was seen and examined at bedside There is no change in clinical condition Continue current management I agree with the above history and physical and assessment/plan by the resident.
[2017-02-22] MEDS: levETIRAcetam 100 mg/ml (5ml) Oral Syringe PEG SCH ×2 (11:47→18:00)
--- NOTE | 2017-02-23 07:47 | CP.PCM.PN ---
<Ivania Bernal - Last Filed: 02/23/17 13:49> Subjective - Date & Time of Evaluation Date of Evaluation: 02/23/17 Time of Evaluation: 07:05 - Subjective Subjective: PGY-1 note for medicine service Pt seen and examined at bedside. No acute events per nursing staff. No other ROS obtainable. Objective - Vital Signs/Intake and Output Vital Signs (last 24 hours): Temp Pulse Resp BP Pulse Ox 97.6 F 72 20 98/65 L 98 02/23/17 00:00 02/23/17 01:15 02/23/17 00:00 02/23/17 00:00 02/23/17 00:00 Intake and Output: 02/23/17 02/23/17 06:59 18:59 Intake Total 880 Output Total 380 Balance 500 - Medications Medications: Current Medications Aspirin (Aspirin Chewable) 81 mg PEG DAILY [facility] Last Admin: 02/22/17 11:46 Dose: 81 mg Bethanechol Chloride (Urecholine) 50 mg PEG TID [facility] Last Admin: 02/22/17 18:05 Dose: 50 mg Carvedilol (Coreg) 3.125 mg PEG BID [facility] Last Admin: 02/22/17 18:00 Dose: 3.125 mg Clopidogrel Bisulfate (Plavix) 75 mg PEG DAILY [facility] Last Admin: 02/22/17 11:46 Dose: 75 mg Emollient Ointment (Vaseline Oint) 5 gm TOP BID PRN PRN Reason: Dry skin Last Admin: 02/21/17 11:49 Dose: 5 gm Enoxaparin Sodium (Lovenox) 40 mg SC DAILY [facility] Famotidine (Pepcid) 20 mg PEG BID [facility] Last Admin: 02/22/17 18:05 Dose: 20 mg Finasteride (Proscar) 5 mg PEG DAILY [facility] Last Admin: 02/22/17 11:47 Dose: 5 mg Levetiracetam (Keppra) 500 mg PEG BID [facility] Last Admin: 02/22/17 18:00 Dose: 500 mg Tamsulosin HCl (Flomax) 0.4 mg PEG DAILY [facility] Last Admin: 02/22/17 11:50 Dose: 0.4 mg - Labs Labs: 02/16/17 07:14 02/16/17 07:14 PT 10.6 SECONDS (9.7-12.2) 11/24/15 14:10 INR 1.0 11/24/15 14:10 APTT 25 SECONDS (21-34) 11/24/15 14:10 - Constitutional Appears: Non-toxic, No Acute Distress, Chronically Ill - Eye Exam Eye Exam: EOMI, Normal appearance, PERRL Pupil Exam: NORMAL ACCOMODATION - ENT Exam ENT Exam: Mucous Membranes Moist - Respiratory Exam Respiratory Exam: Clear to Ausculation Bilateral, NORMAL BREATHING PATTERN. absent: Respiratory Distress Additional comments: Trach collar in place - Cardiovascular Exam Cardiovascular Exam: REGULAR RHYTHM, +S1, +S2 - GI/Abdominal Exam Additional comments: PEg in place - Extremities Exam Extremities Exam: Pedal Edema - Back Exam Back Exam: NORMAL INSPECTION. absent: CVA tenderness (L), CVA tenderness (R), paraspinal tenderness Additional comments: stage 2 ulcer - Neurological Exam Neurological Exam: Awake. absent: Alert, Oriented x3 - Skin Additional comments: minor scratches L arm Assessment and Plan - Assessment and Plan (Free Text) Assessment: Anoxic brain injury s/p cardiac arrest in 05/2015 no acute changes Awake, not alert, not sedated continue current management Stable Blood at trach site resolved Will talk to respiratory/surg about changing the trach if needed 02/11 blood at tracheostomy site suctioned, no blood noted deeper than opening Urinary Retention 02/17 Bladder scan <100 cc Flomax 0.4mg PEG daily Proscar 5mg PEG daily continue Bethanecol 50mg PEG TID- started after persistent retention and found to be effective. monitor I's and O's check bladder scan for residual urine three times weekly 02/04: bladder scan today, 50cc 01/29: condom cath in place 01/28: condom catheter displaced, so difficult to measure accurate output, but patient not retaining urine 01/27: yesterday was straight cath'd with 60cc clear cherie urine. bladder scan done twice with minimal residual urine seen. 01/18: 50 cc residual Sacral Ulcers Small area stage II in upper gluteal cleft- pink base Stage II ulcer present on sacrum Continue frequent turning, protective ointment and skin checks. 01/07- wound care saw patient, air mattress adjusted and protective ointment applied to sacrum Continue wound care Respiratory failure trach collar in place - normal resp pattern, respiratory suctioned pt, improved 02/07: instructed nursing to give guanifesin for thickened secretions 01/12- starting mucinex for secretions CAD (coronary artery disease) s/p cardiac stents on 06/13/15 ASA 81mg via PEG daily Coreg 3.125mg PEG BID Plavix 75mg PO daily Seizures Keppra 500mg PEG BID for seizure prophylaxis Monitor Lower extremity edema Lasix via PEG as needed. Improving Monitor PEG tube dysfunction- resolved IR placed new PEG 01/06, functioning appropriately Cont tube feeding - Isosource 1.5 @ 60 ml/hour Weights weekly UTI- resolved CBI discontinued 01/08, baker catheter removed, Condom catheter- voiding yellow/ slightly cloudy urine Monitor 12/30- Triple lumen Baker in place for irrigation, added neosporin to CBI Urine Culture 12/03/16 - Positive Kleb pneumo, sensitive to cipro - resolved. Off antibiotics now Prophylactic measure Pepcid 20 mg PEG BID Lovenox 40mg SC daily SCDs and offloading boots continue to turn and reposition q2h Continue to monitor medication administrations and clinical presentation weekly labs- last drawn 02/09/17 Per dietary will continue tube feeds at the same rate due to nutritional needs <Donavan Hallman - Last Filed: 03/25/17 12:00> Objective - Vital Signs/Intake and Output Vital Signs (last 24 hours): Temp Pulse Resp BP Pulse Ox 98.7 F 86 20 115/77 98 03/25/17 08:04 03/25/17 08:04 03/25/17 08:04 03/25/17 08:04 03/25/17 08:04 Intake and Output: 03/25/17 03/25/17 06:59 18:59 Intake Total 1610 Output Total 400 Balance 1210 - Medications Medications: Current Medications Aspirin (Aspirin Chewable) 81 mg PEG DAILY [facility] Last Admin: 03/25/17 10:10 Dose: 81 mg Bethanechol Chloride (Urecholine) 50 mg PEG TID [facility] Last Admin: 03/24/17 18:05 Dose: 50 mg Bisacodyl (Dulcolax) 5 mg PO Q72H PRN PRN Reason: Constipation Last Admin: 03/20/17 10:57 Dose: 5 mg Carvedilol (Coreg) 3.125 mg PEG BID [facility] Last Admin: 03/25/17 10:11 Dose: 3.125 mg Clopidogrel Bisulfate (Plavix) 75 mg PEG DAILY [facility] Last Admin: 03/25/17 10:11 Dose: 75 mg Emollient Ointment (Vaseline Oint) 5 gm TOP BID PRN PRN Reason: Dry skin Last Admin: 03/20/17 13:41 Dose: 5 gm Enoxaparin Sodium (Lovenox) 40 mg SC DAILY [facility] Last Admin: 03/25/17 10:10 Dose: 40 mg Famotidine (Pepcid) 20 mg PEG BID [facility] Last Admin: 03/25/17 10:10 Dose: 20 mg Finasteride (Proscar) 5 mg PEG DAILY [facility] Last Admin: 03/25/17 10:11 Dose: 5 mg Meropenem 1 gm/ Sodium (Chloride) 100 mls @ 200 mls/hr IVPB Q8H [facility] Last Admin: 03/25/17 10:11 Dose: 200 mls/hr Levetiracetam (Keppra) 500 mg PEG BID [facility] Last Admin: 03/24/17 18:05 Dose: 500 mg Tamsulosin HCl (Flomax) 0.4 mg PEG DAILY [facility] Last Admin: 03/25/17 10:10 Dose: 0.4 mg - Labs Labs: 03/16/17 11:22 03/16/17 11:22 PT 10.6 SECONDS (9.7-12.2) 11/24/15 14:10 INR 1.0 11/24/15 14:10 APTT 25 SECONDS (21-34) 11/24/15 14:10 Attending/Attestation - Attestation I have personally seen and examined this patient.: Yes I have fully participated in the care of the patient.: Yes I have reviewed all pertinent clinical information, including history, physical exam and plan: Yes Notes (Text): Patient seen and examined with the resident. Agree with the resident's evaluation, assessment and plan. Anoxic brain injury s/p cardiac arrest in 05/2015 no acute changes Awake, not alert, not sedated continue current management Stable Blood at trach site resolved Will talk to respiratory/surg about changing the trach if needed 02/11 blood at tracheostomy site suctioned, no blood noted deeper than opening Urinary Retention 02/17 Bladder scan <100 cc Flomax 0.4mg PEG daily Proscar 5mg PEG daily continue Bethanecol 50mg PEG TID- started after persistent retention and found to be effective. monitor I's and O's check bladder scan for residual urine three times weekly 02/04: bladder scan today, 50cc 01/29: condom cath in place 01/28: condom catheter displaced, so difficult to measure accurate output, but patient not retaining urine 01/27: yesterday was straight cath'd with 60cc clear cherie urine. bladder scan done twice with minimal residual urine seen. 01/18: 50 cc residual
[2017-02-23] MEDS: levETIRAcetam 100 mg/ml (5ml) Oral Syringe PEG SCH ×2 (10:43→17:46)
[2017-02-23] MEDS: Enoxaparin 40 mg Syringe SC SCH (10:43)
[2017-02-23 11:35] LABS: BASO % 0.3 % (0.0-2.0); EOS # 0.4 K/uL (0.0-0.7); EOS % 3.7 % (0.0-4.0); LYMPH # 2.5 K/uL (1.0-4.3); LYMPH % 25.9 % (20.0-40.0); MEAN CELL VOLUME 88.2 fL (80.0-94.0); MEAN CORPUSCULAR HEMOGLOBIN 28.1 pg (27.0-31.0); MEAN CORPUSCULAR HGB CONC 31.8 g/dL (33.0-37.0); MEAN PLATELET VOLUME 9.2 fL (7.2-11.7); NEUT # 5.8 K/uL (1.8-7.0); NEUT % 60.1 % (50.0-75.0); NRBC % 0.1 % (0.0-2.0); RBC 4.27 Mil/uL (4.40-5.90); RED CELL DISTRIBUTION WIDTH 15.8 % (11.5-14.5); WHITE BLOOD COUNT 9.7 K/uL (4.8-10.8)
[2017-02-23 11:38] LABS: ALBUMIN 3.6 g/dL (3.5-5.0)
[2017-02-23 11:40] LABS: GFR NON-AFRICAN AMERICAN > 60
[2017-02-23 11:41] LABS: ALB/GLOB RATIO 0.9 (1.0-2.1); ALT/SGPT 75 U/L (21-72); AST/SGOT 39 U/L (17-59); BLOOD UREA NITROGEN 20 mg/dL (9-20); CALCIUM 8.3 mg/dl (8.6-10.4)
--- NOTE | 2017-02-24 10:08 | CP.PCM.PN ---
<Ivania Bernal - Last Filed: 02/24/17 17:29> Subjective - Date & Time of Evaluation Date of Evaluation: 02/24/17 Time of Evaluation: 07:00 - Subjective Subjective: PGY-1 note for medicine service Pt seen and examined at bedside. No acute events per nursing staff. No other ROS obtainable. Objective - Vital Signs/Intake and Output Vital Signs (last 24 hours): Temp Pulse Resp BP Pulse Ox 97.5 F L 75 20 131/88 100 02/24/17 08:00 02/24/17 08:00 02/24/17 08:00 02/24/17 08:00 02/24/17 08:00 Intake and Output: 02/24/17 02/24/17 06:59 18:59 Intake Total 1560 Output Total 650 Balance 910 - Medications Medications: Current Medications Aspirin (Aspirin Chewable) 81 mg PEG DAILY [facility] Last Admin: 02/23/17 10:43 Dose: 81 mg Bethanechol Chloride (Urecholine) 50 mg PEG TID [facility] Last Admin: 02/23/17 17:46 Dose: 50 mg Carvedilol (Coreg) 3.125 mg PEG BID [facility] Last Admin: 02/23/17 17:46 Dose: 3.125 mg Clopidogrel Bisulfate (Plavix) 75 mg PEG DAILY [facility] Last Admin: 02/23/17 10:42 Dose: 75 mg Emollient Ointment (Vaseline Oint) 5 gm TOP BID PRN PRN Reason: Dry skin Last Admin: 02/21/17 11:49 Dose: 5 gm Enoxaparin Sodium (Lovenox) 40 mg SC DAILY [facility] Last Admin: 02/23/17 10:43 Dose: 40 mg Famotidine (Pepcid) 20 mg PEG BID [facility] Last Admin: 02/23/17 17:46 Dose: 20 mg Finasteride (Proscar) 5 mg PEG DAILY [facility] Last Admin: 02/23/17 10:44 Dose: 5 mg Levetiracetam (Keppra) 500 mg PEG BID [facility] Last Admin: 02/23/17 17:46 Dose: 500 mg Tamsulosin HCl (Flomax) 0.4 mg PEG DAILY [facility] Last Admin: 02/23/17 10:42 Dose: 0.4 mg - Labs Labs: 02/23/17 11:19 02/23/17 11:19 PT 10.6 SECONDS (9.7-12.2) 11/24/15 14:10 INR 1.0 11/24/15 14:10 APTT 25 SECONDS (21-34) 11/24/15 14:10 - Constitutional Appears: Non-toxic, No Acute Distress - Head Exam Head Exam: ATRAUMATIC, NORMAL INSPECTION - Eye Exam Eye Exam: EOMI, PERRL Pupil Exam: NORMAL ACCOMODATION - ENT Exam ENT Exam: Mucous Membranes Moist - Respiratory Exam Respiratory Exam: Clear to Ausculation Bilateral, NORMAL BREATHING PATTERN. absent: Respiratory Distress Additional comments: Trach - Cardiovascular Exam Cardiovascular Exam: REGULAR RHYTHM, +S1, +S2 - GI/Abdominal Exam GI & Abdominal Exam: Soft, Normal Bowel Sounds. absent: Distended, Firm, Guarding, Tenderness Additional comments: peg in place - Extremities Exam Extremities Exam: Pedal Edema. absent: Calf Tenderness - Back Exam Back Exam: NORMAL INSPECTION Additional comments: stage 2 scaral ulcer , pink base - Neurological Exam Neurological Exam: Awake. absent: Alert, Oriented x3 - Skin Skin Exam: Dry, Intact, Normal Color, Warm Assessment and Plan - Assessment and Plan (Free Text) Assessment: Anoxic brain injury s/p cardiac arrest in 05/2015 no acute changes Awake, not alert, not sedated continue current management Stable Constipation Nursing to record bowel movements Dulcolax 5mg PO Q72 hours prn constipation/no bowel movement Blood at trach site resolved Will talk to respiratory/surg about changing the trach if needed 02/11 blood at tracheostomy site suctioned, no blood noted deeper than opening Urinary Retention 02/17 Bladder scan <100 cc Flomax 0.4mg PEG daily Proscar 5mg PEG daily continue Bethanecol 50mg PEG TID- started after persistent retention and found to be effective. monitor I's and O's check bladder scan for residual urine three times weekly 02/04: bladder scan today, 50cc 01/29: condom cath in place 01/28: condom catheter displaced, so difficult to measure accurate output, but patient not retaining urine 01/27: yesterday was straight cath'd with 60cc clear cherie urine. bladder scan done twice with minimal residual urine seen. 01/18: 50 cc residual Sacral Ulcers Small area stage II in upper gluteal cleft- pink base Stage II ulcer present on sacrum Continue frequent turning, protective ointment and skin checks. 01/07- wound care saw patient, air mattress adjusted and protective ointment applied to sacrum Continue wound care Respiratory failure trach collar in place - normal resp pattern, respiratory suctioned pt, improved 02/07: instructed nursing to give guanifesin for thickened secretions 01/12- starting mucinex for secretions CAD (coronary artery disease) s/p cardiac stents on 06/13/15 ASA 81mg via PEG daily Coreg 3.125mg PEG BID Plavix 75mg PO daily Seizures Keppra 500mg PEG BID for seizure prophylaxis Monitor Lower extremity edema Lasix via PEG as needed. Improving Monitor PEG tube dysfunction- resolved IR placed new PEG 01/06, functioning appropriately Cont tube feeding - Isosource 1.5 @ 60 ml/hour Weights weekly UTI- resolved CBI discontinued 01/08, baker catheter removed, Condom catheter- voiding yellow/ slightly cloudy urine Monitor 12/30- Triple lumen Baker in place for irrigation, added neosporin to CBI Urine Culture 12/03/16 - Positive Kleb pneumo, sensitive to cipro - resolved. Off antibiotics now Prophylactic measure Pepcid 20 mg PEG BID Lovenox 40mg SC daily SCDs and offloading boots continue to turn and reposition q2h Continue to monitor medication administrations and clinical presentation weekly labs- last drawn 02/09/17 Per dietary will continue tube feeds at the same rate due to nutritional needs <Donavan Hallman - Last Filed: 03/25/17 12:02> Objective - Vital Signs/Intake and Output Vital Signs (last 24 hours): Temp Pulse Resp BP Pulse Ox 98.7 F 86 20 115/77 98 03/25/17 08:04 03/25/17 08:04 03/25/17 08:04 03/25/17 08:04 03/25/17 08:04 Intake and Output: 03/25/17 03/25/17 06:59 18:59 Intake Total 1610 Output Total 400 Balance 1210 - Medications Medications: Current Medications Aspirin (Aspirin Chewable) 81 mg PEG DAILY [facility] Last Admin: 03/25/17 10:10 Dose: 81 mg Bethanechol Chloride (Urecholine) 50 mg PEG TID [facility] Last Admin: 03/24/17 18:05 Dose: 50 mg Bisacodyl (Dulcolax) 5 mg PO Q72H PRN PRN Reason: Constipation Last Admin: 03/20/17 10:57 Dose: 5 mg Carvedilol (Coreg) 3.125 mg PEG BID [facility] Last Admin: 03/25/17 10:11 Dose: 3.125 mg Clopidogrel Bisulfate (Plavix) 75 mg PEG DAILY [facility] Last Admin: 03/25/17 10:11 Dose: 75 mg Emollient Ointment (Vaseline Oint) 5 gm TOP BID PRN PRN Reason: Dry skin Last Admin: 03/20/17 13:41 Dose: 5 gm Enoxaparin Sodium (Lovenox) 40 mg SC DAILY [facility] Last Admin: 03/25/17 10:10 Dose: 40 mg Famotidine (Pepcid) 20 mg PEG BID [facility] Last Admin: 03/25/17 10:10 Dose: 20 mg Finasteride (Proscar) 5 mg PEG DAILY [facility] Last Admin: 03/25/17 10:11 Dose: 5 mg Meropenem 1 gm/ Sodium (Chloride) 100 mls @ 200 mls/hr IVPB Q8H [facility] Last Admin: 03/25/17 10:11 Dose: 200 mls/hr Levetiracetam (Keppra) 500 mg PEG BID [facility] Last Admin: 03/24/17 18:05 Dose: 500 mg Tamsulosin HCl (Flomax) 0.4 mg PEG DAILY [facility] Last Admin: 03/25/17 10:10 Dose: 0.4 mg - Labs Labs: 03/16/17 11:22 03/16/17 11:22 PT 10.6 SECONDS (9.7-12.2) 11/24/15 14:10 INR 1.0 11/24/15 14:10 APTT 25 SECONDS (21-34) 11/24/15 14:10 Attending/Attestation - Attestation I have personally seen and examined this patient.: Yes I have fully participated in the care of the patient.: Yes I have reviewed all pertinent clinical information, including history, physical exam and plan: Yes Notes (Text): Patient seen and examined with the resident. Agree with the resident's evaluation, assessment and plan. Anoxic brain injury
[2017-02-24] MEDS: levETIRAcetam 100 mg/ml (5ml) Oral Syringe PEG SCH ×2 (10:41→21:14)
[2017-02-24] MEDS: Enoxaparin 40 mg Syringe SC SCH (14:45)
--- NOTE | 2017-02-25 07:13 | CP.PCM.PN ---
<Ivania Bernal - Last Filed: 02/25/17 14:14> Subjective - Date & Time of Evaluation Date of Evaluation: 02/25/17 Time of Evaluation: 07:20 - Subjective Subjective: PGY-1 note for medicine service Pt seen and examined at bedside. No acute events per nursing staff. No other ROS obtainable. Objective - Vital Signs/Intake and Output Vital Signs (last 24 hours): Temp Pulse Resp BP Pulse Ox 98.2 F 79 20 118/73 98 02/25/17 00:31 02/25/17 00:31 02/25/17 00:31 02/25/17 00:31 02/25/17 00:31 Intake and Output: 02/25/17 02/25/17 06:59 18:59 Intake Total 880 Output Total 300 Balance 580 - Medications Medications: Current Medications Aspirin (Aspirin Chewable) 81 mg PEG DAILY [facility] Last Admin: 02/24/17 10:41 Dose: 81 mg Bethanechol Chloride (Urecholine) 50 mg PEG TID [facility] Last Admin: 02/24/17 21:14 Dose: 50 mg Bisacodyl (Dulcolax) 5 mg PO Q72H PRN PRN Reason: Constipation Carvedilol (Coreg) 3.125 mg PEG BID [facility] Last Admin: 02/24/17 21:14 Dose: 3.125 mg Clopidogrel Bisulfate (Plavix) 75 mg PEG DAILY [facility] Last Admin: 02/24/17 10:41 Dose: 75 mg Emollient Ointment (Vaseline Oint) 5 gm TOP BID PRN PRN Reason: Dry skin Last Admin: 02/21/17 11:49 Dose: 5 gm Enoxaparin Sodium (Lovenox) 40 mg SC DAILY [facility] Last Admin: 02/24/17 14:45 Dose: 40 mg Famotidine (Pepcid) 20 mg PEG BID [facility] Last Admin: 02/24/17 21:14 Dose: 20 mg Finasteride (Proscar) 5 mg PEG DAILY [facility] Last Admin: 02/24/17 10:41 Dose: 5 mg Levetiracetam (Keppra) 500 mg PEG BID [facility] Last Admin: 02/24/17 21:14 Dose: 500 mg Tamsulosin HCl (Flomax) 0.4 mg PEG DAILY [facility] Last Admin: 02/24/17 14:44 Dose: 0.4 mg - Labs Labs: 02/23/17 11:19 02/23/17 11:19 PT 10.6 SECONDS (9.7-12.2) 11/24/15 14:10 INR 1.0 11/24/15 14:10 APTT 25 SECONDS (21-34) 11/24/15 14:10 - Constitutional Appears: Non-toxic, No Acute Distress - Head Exam Head Exam: ATRAUMATIC, NORMAL INSPECTION - Eye Exam Eye Exam: EOMI, Normal appearance, PERRL Pupil Exam: NORMAL ACCOMODATION - ENT Exam ENT Exam: Mucous Membranes Moist - Respiratory Exam Respiratory Exam: Clear to Ausculation Bilateral, NORMAL BREATHING PATTERN. absent: Accessory Muscle Use, Chest Wall Tenderness, Rales, Wheezes, Respiratory Distress Additional comments: Trach in place - Cardiovascular Exam Cardiovascular Exam: REGULAR RHYTHM, +S1, +S2 - GI/Abdominal Exam GI & Abdominal Exam: Soft, Normal Bowel Sounds. absent: Distended, Guarding, Tenderness Additional comments: PEG in place - Extremities Exam Extremities Exam: Pedal Edema - Back Exam Back Exam: absent: CVA tenderness (L), CVA tenderness (R), paraspinal tenderness Additional comments: stage 2 ulcer - Neurological Exam Neurological Exam: Awake. absent: Alert - Psychiatric Exam Psychiatric exam: absent: Normal Affect, Normal Mood - Skin Skin Exam: Dry, Intact, Normal Color, Warm Assessment and Plan - Assessment and Plan (Free Text) Assessment: Anoxic brain injury s/p cardiac arrest in 05/2015 no acute changes Awake, not alert, not sedated continue current management Stable Constipation Had BM in the PM of 02/24 Nursing to record bowel movements Dulcolax 5mg PO Q72 hours prn constipation/no bowel movement Blood at trach site resolved Will talk to respiratory/surg about changing the trach if needed 02/11 blood at tracheostomy site suctioned, no blood noted deeper than opening Urinary Retention 02/17 Bladder scan <100 cc Flomax 0.4mg PEG daily Proscar 5mg PEG daily continue Bethanecol 50mg PEG TID- started after persistent retention and found to be effective. monitor I's and O's check bladder scan for residual urine three times weekly 02/04: bladder scan today, 50cc 01/29: condom cath in place 01/28: condom catheter displaced, so difficult to measure accurate output, but patient not retaining urine 01/27: yesterday was straight cath'd with 60cc clear cherie urine. bladder scan done twice with minimal residual urine seen. 01/18: 50 cc residual Sacral Ulcers Small area stage II in upper gluteal cleft- pink base Stage II ulcer present on sacrum Continue frequent turning, protective ointment and skin checks. 01/07- wound care saw patient, air mattress adjusted and protective ointment applied to sacrum Continue wound care Respiratory failure trach collar in place - normal resp pattern, respiratory suctioned pt, improved 02/07: instructed nursing to give guanifesin for thickened secretions 01/12- starting mucinex for secretions CAD (coronary artery disease) s/p cardiac stents on 06/13/15 ASA 81mg via PEG daily Coreg 3.125mg PEG BID Plavix 75mg PO daily Seizures Keppra 500mg PEG BID for seizure prophylaxis Monitor Lower extremity edema Lasix via PEG as needed. Improving Monitor PEG tube dysfunction- resolved IR placed new PEG 01/06, functioning appropriately Cont tube feeding - Isosource 1.5 @ 60 ml/hour Weights weekly UTI- resolved CBI discontinued 01/08, baker catheter removed, Condom catheter- voiding yellow/ slightly cloudy urine Monitor 12/30- Triple lumen Baker in place for irrigation, added neosporin to CBI Urine Culture 12/03/16 - Positive Kleb pneumo, sensitive to cipro - resolved. Off antibiotics now Prophylactic measure Pepcid 20 mg PEG BID Lovenox 40mg SC daily SCDs and offloading boots continue to turn and reposition q2h Continue to monitor medication administrations and clinical presentation weekly labs- last drawn 02/09/17 Per dietary will continue tube feeds at the same rate due to nutritional needs <Donavan Hallman - Last Filed: 03/25/17 12:02> Objective - Vital Signs/Intake and Output Vital Signs (last 24 hours): Temp Pulse Resp BP Pulse Ox 98.7 F 86 20 115/77 98 03/25/17 08:04 03/25/17 08:04 03/25/17 08:04 03/25/17 08:04 03/25/17 08:04 Intake and Output: 03/25/17 03/25/17 06:59 18:59 Intake Total 1610 Output Total 400 Balance 1210 - Medications Medications: Current Medications Aspirin (Aspirin Chewable) 81 mg PEG DAILY [facility] Last Admin: 03/25/17 10:10 Dose: 81 mg Bethanechol Chloride (Urecholine) 50 mg PEG TID [facility] Last Admin: 03/24/17 18:05 Dose: 50 mg Bisacodyl (Dulcolax) 5 mg PO Q72H PRN PRN Reason: Constipation Last Admin: 03/20/17 10:57 Dose: 5 mg Carvedilol (Coreg) 3.125 mg PEG BID [facility] Last Admin: 03/25/17 10:11 Dose: 3.125 mg Clopidogrel Bisulfate (Plavix) 75 mg PEG DAILY [facility] Last Admin: 03/25/17 10:11 Dose: 75 mg Emollient Ointment (Vaseline Oint) 5 gm TOP BID PRN PRN Reason: Dry skin Last Admin: 03/20/17 13:41 Dose: 5 gm Enoxaparin Sodium (Lovenox) 40 mg SC DAILY [facility] Last Admin: 03/25/17 10:10 Dose: 40 mg Famotidine (Pepcid) 20 mg PEG BID [facility] Last Admin: 03/25/17 10:10 Dose: 20 mg Finasteride (Proscar) 5 mg PEG DAILY [facility] Last Admin: 03/25/17 10:11 Dose: 5 mg Meropenem 1 gm/ Sodium (Chloride) 100 mls @ 200 mls/hr IVPB Q8H [facility] Last Admin: 03/25/17 10:11 Dose: 200 mls/hr Levetiracetam (Keppra) 500 mg PEG BID [facility] Last Admin: 03/24/17 18:05 Dose: 500 mg Tamsulosin HCl (Flomax) 0.4 mg PEG DAILY [facility] Last Admin: 03/25/17 10:10 Dose: 0.4 mg - Labs Labs: 03/16/17 11:22 03/16/17 11:22 PT 10.6 SECONDS (9.7-12.2) 11/24/15 14:10 INR 1.0 11/24/15 14:10 APTT 25 SECONDS (21-34) 11/24/15 14:10 Attending/Attestation - Attestation I have personally seen and examined this patient.: Yes I have fully participated in the care of the patient.: Yes I have reviewed all pertinent clinical information, including history, physical exam and plan: Yes Notes (Text): Patient seen and examined with the resident. Agree with the resident's evaluation, assessment and plan. Anoxic brain injury
[2017-02-25] MEDS: Enoxaparin 40 mg Syringe SC SCH (10:35)
[2017-02-25] MEDS: levETIRAcetam 100 mg/ml (5ml) Oral Syringe PEG SCH ×2 (10:39→18:41)
--- NOTE | 2017-02-26 07:33 | CP.PCM.PN ---
<Ivania Bernal - Last Filed: 02/26/17 12:46> Subjective - Date & Time of Evaluation Date of Evaluation: 02/26/17 Time of Evaluation: 07:00 - Subjective Subjective: PGY-1 note for medicine service Pt seen and examined at bedside. No acute events per nursing staff. No other ROS obtainable. Repsonds to painful stimuli but not verbal commands. Objective - Vital Signs/Intake and Output Vital Signs (last 24 hours): Temp Pulse Resp BP Pulse Ox 97.6 F 87 20 125/75 99 02/26/17 02:00 02/26/17 02:00 02/26/17 02:00 02/26/17 02:00 02/26/17 02:00 Intake and Output: 02/26/17 02/26/17 06:59 18:59 Intake Total 880 Output Total 400 Balance 480 - Medications Medications: Current Medications Aspirin (Aspirin Chewable) 81 mg PEG DAILY [facility] Last Admin: 02/25/17 10:39 Dose: 81 mg Bethanechol Chloride (Urecholine) 50 mg PEG TID [facility] Last Admin: 02/25/17 18:41 Dose: 50 mg Bisacodyl (Dulcolax) 5 mg PO Q72H PRN PRN Reason: Constipation Last Admin: 02/25/17 10:39 Dose: 5 mg Carvedilol (Coreg) 3.125 mg PEG BID [facility] Last Admin: 02/25/17 18:42 Dose: 3.125 mg Clopidogrel Bisulfate (Plavix) 75 mg PEG DAILY [facility] Last Admin: 02/25/17 10:39 Dose: 75 mg Emollient Ointment (Vaseline Oint) 5 gm TOP BID PRN PRN Reason: Dry skin Last Admin: 02/21/17 11:49 Dose: 5 gm Enoxaparin Sodium (Lovenox) 40 mg SC DAILY [facility] Last Admin: 02/25/17 10:35 Dose: 40 mg Famotidine (Pepcid) 20 mg PEG BID [facility] Last Admin: 02/25/17 18:42 Dose: 20 mg Finasteride (Proscar) 5 mg PEG DAILY [facility] Last Admin: 02/25/17 10:40 Dose: 5 mg Levetiracetam (Keppra) 500 mg PEG BID [facility] Last Admin: 02/25/17 18:41 Dose: 500 mg Tamsulosin HCl (Flomax) 0.4 mg PEG DAILY [facility] Last Admin: 02/25/17 10:39 Dose: 0.4 mg - Labs Labs: 02/23/17 11:19 02/23/17 11:19 PT 10.6 SECONDS (9.7-12.2) 11/24/15 14:10 INR 1.0 11/24/15 14:10 APTT 25 SECONDS (21-34) 11/24/15 14:10 - Constitutional Appears: Non-toxic, No Acute Distress - Head Exam Head Exam: ATRAUMATIC, NORMAL INSPECTION - Eye Exam Eye Exam: PERRL Pupil Exam: NORMAL ACCOMODATION - ENT Exam ENT Exam: Mucous Membranes Moist - Neck Exam Additional comments: Trach collar in place - Respiratory Exam Respiratory Exam: Clear to Ausculation Bilateral, NORMAL BREATHING PATTERN. absent: Respiratory Distress - Cardiovascular Exam Cardiovascular Exam: REGULAR RHYTHM, +S1, +S2 - GI/Abdominal Exam GI & Abdominal Exam: Soft, Normal Bowel Sounds. absent: Distended, Firm, Guarding, Tenderness Additional comments: PEG in place - Extremities Exam Extremities Exam: Pedal Edema Additional comments: boots in place - Back Exam Back Exam: NORMAL INSPECTION. absent: CVA tenderness (L), CVA tenderness (R), paraspinal tenderness Additional comments: scral decub stage 2 - Neurological Exam Neurological Exam: Awake. absent: Alert, Oriented x3 - Skin Skin Exam: Dry, Intact, Normal Color, Warm Additional comments: minor scratches on left forearm dorsal aspect Assessment and Plan - Assessment and Plan (Free Text) Assessment: Anoxic brain injury s/p cardiac arrest in 05/2015 no acute changes Awake, not alert, not sedated continue current management Stable Constipation No BM yesterday Had BM in the PM of 02/24 Nursing to record bowel movements Dulcolax 5mg PO Q72 hours prn constipation/no bowel movement Blood at trach site resolved Will talk to respiratory/surg about changing the trach if needed 02/11 blood at tracheostomy site suctioned, no blood noted deeper than opening Urinary Retention 02/17 Bladder scan <100 cc Flomax 0.4mg PEG daily Proscar 5mg PEG daily continue Bethanecol 50mg PEG TID- started after persistent retention and found to be effective. monitor I's and O's check bladder scan for residual urine three times weekly 02/04: bladder scan today, 50cc 01/29: condom cath in place 01/28: condom catheter displaced, so difficult to measure accurate output, but patient not retaining urine 01/27: yesterday was straight cath'd with 60cc clear cherie urine. bladder scan done twice with minimal residual urine seen. 01/18: 50 cc residual Sacral Ulcers Small area stage II in upper gluteal cleft- pink base Stage II ulcer present on sacrum Continue frequent turning, protective ointment and skin checks. 01/07- wound care saw patient, air mattress adjusted and protective ointment applied to sacrum Continue wound care Respiratory failure trach collar in place - normal resp pattern, respiratory suctioned pt, improved 02/07: instructed nursing to give guanifesin for thickened secretions 01/12- starting mucinex for secretions CAD (coronary artery disease) s/p cardiac stents on 06/13/15 ASA 81mg via PEG daily Coreg 3.125mg PEG BID Plavix 75mg PO daily Seizures Keppra 500mg PEG BID for seizure prophylaxis Monitor Lower extremity edema Lasix via PEG as needed. Improving Monitor PEG tube dysfunction- resolved IR placed new PEG 01/06, functioning appropriately Cont tube feeding - Isosource 1.5 @ 60 ml/hour Weights weekly UTI- resolved CBI discontinued 01/08, baker catheter removed, Condom catheter- voiding yellow/ slightly cloudy urine Monitor 12/30- Triple lumen Baker in place for irrigation, added neosporin to CBI Urine Culture 12/03/16 - Positive Kleb pneumo, sensitive to cipro - resolved. Off antibiotics now Prophylactic measure Pepcid 20 mg PEG BID Lovenox 40mg SC daily SCDs and offloading boots continue to turn and reposition q2h Continue to monitor medication administrations and clinical presentation weekly labs- last drawn 02/09/17 Per dietary will continue tube feeds at the same rate due to nutritional needs <Donnell Ying - Last Filed: 02/26/17 15:52> Objective - Vital Signs/Intake and Output Vital Signs (last 24 hours): Temp Pulse Resp BP Pulse Ox 98.8 F 80 20 136/91 H 98 02/26/17 07:00 02/26/17 15:49 02/26/17 07:00 02/26/17 07:00 02/26/17 07:00 Intake and Output: 02/26/17 02/26/17 06:59 18:59 Intake Total 880 Output Total 400 Balance 480 - Medications Medications: Current Medications Aspirin (Aspirin Chewable) 81 mg PEG DAILY [facility] Last Admin: 02/26/17 11:53 Dose: 81 mg Bethanechol Chloride (Urecholine) 50 mg PEG TID [facility] Last Admin: 02/26/17 14:34 Dose: 50 mg Bisacodyl (Dulcolax) 5 mg PO Q72H PRN PRN Reason: Constipation Carvedilol (Coreg) 3.125 mg PEG BID [facility] Last Admin: 02/26/17 11:53 Dose: 3.125 mg Clopidogrel Bisulfate (Plavix) 75 mg PEG DAILY [facility] Last Admin: 02/26/17 11:53 Dose: 75 mg Emollient Ointment (Vaseline Oint) 5 gm TOP BID PRN PRN Reason: Dry skin Enoxaparin Sodium (Lovenox) 40 mg SC DAILY [facility] Last Admin: 02/26/17 11:53 Dose: 40 mg Famotidine (Pepcid) 20 mg PEG BID [facility] Last Admin: 02/26/17 11:57 Dose: 20 mg Finasteride (Proscar) 5 mg PEG DAILY [facility] Last Admin: 02/26/17 11:54 Dose: 5 mg Levetiracetam (Keppra) 500 mg PEG BID [facility] Last Admin: 02/26/17 11:53 Dose: 500 mg Tamsulosin HCl (Flomax) 0.4 mg PEG DAILY [facility] Last Admin: 02/26/17 11:57 Dose: 0.4 mg - Labs Labs: 02/23/17 11:19 02/23/17 11:19 PT 10.6 SECONDS (9.7-12.2) 11/24/15 14:10 INR 1.0 11/24/15 14:10 APTT 25 SECONDS (21-34) 11/24/15 14:10 Attending/Attestation - Attestation I have personally seen and examined this patient.: Yes I have fully participated in the care of the patient.: Yes I have reviewed all pertinent clinical information, including history, physical exam and plan: Yes Notes (Text): 02/26/17 15:51 Patient was seen and examined at bedside with the resident Patient's skin examined and there is no decubitus ulcer present Continue current management Turn and position every 2 hours Continue local care of the tracheostomy and the PEG tube site Discussed the plan of care the resident and agree with the above history and physical and assessment/plan by the resident
[2017-02-26] MEDS: Enoxaparin 40 mg Syringe SC SCH (11:53)
[2017-02-26] MEDS: levETIRAcetam 100 mg/ml (5ml) Oral Syringe PEG SCH ×2 (11:53→18:10)
--- NOTE | 2017-02-27 08:25 | CP.PCM.PN ---
<Ivania Bernal - Last Filed: 02/27/17 09:46> Subjective - Date & Time of Evaluation Date of Evaluation: 02/27/17 Time of Evaluation: 07:00 - Subjective Subjective: PGY-1 note for medicine service Pt seen and examined at bedside. No acute events per nursing staff. No other ROS obtainable. Repsonds to painful stimuli but not verbal commands. Objective - Vital Signs/Intake and Output Vital Signs (last 24 hours): Temp Pulse Resp BP Pulse Ox 98.3 F 77 20 109/76 99 02/26/17 23:46 02/26/17 23:46 02/26/17 23:46 02/26/17 23:46 02/26/17 23:46 Intake and Output: 02/27/17 02/27/17 06:59 18:59 Intake Total 880 Output Total 500 Balance 380 - Medications Medications: Current Medications Aspirin (Aspirin Chewable) 81 mg PEG DAILY [facility] Last Admin: 02/26/17 11:53 Dose: 81 mg Bethanechol Chloride (Urecholine) 50 mg PEG TID [facility] Last Admin: 02/26/17 18:10 Dose: 50 mg Bisacodyl (Dulcolax) 5 mg PO Q72H PRN PRN Reason: Constipation Carvedilol (Coreg) 3.125 mg PEG BID [facility] Last Admin: 02/26/17 18:10 Dose: 3.125 mg Clopidogrel Bisulfate (Plavix) 75 mg PEG DAILY [facility] Last Admin: 02/26/17 11:53 Dose: 75 mg Emollient Ointment (Vaseline Oint) 5 gm TOP BID PRN PRN Reason: Dry skin Enoxaparin Sodium (Lovenox) 40 mg SC DAILY [facility] Last Admin: 02/26/17 11:53 Dose: 40 mg Famotidine (Pepcid) 20 mg PEG BID [facility] Last Admin: 02/26/17 18:10 Dose: 20 mg Finasteride (Proscar) 5 mg PEG DAILY [facility] Last Admin: 02/26/17 11:54 Dose: 5 mg Levetiracetam (Keppra) 500 mg PEG BID [facility] Last Admin: 02/26/17 18:10 Dose: 500 mg Tamsulosin HCl (Flomax) 0.4 mg PEG DAILY [facility] Last Admin: 02/26/17 11:57 Dose: 0.4 mg - Labs Labs: 02/23/17 11:19 02/23/17 11:19 PT 10.6 SECONDS (9.7-12.2) 11/24/15 14:10 INR 1.0 11/24/15 14:10 APTT 25 SECONDS (21-34) 11/24/15 14:10 - Constitutional Appears: Non-toxic, No Acute Distress - Head Exam Head Exam: ATRAUMATIC, NORMAL INSPECTION - Eye Exam Eye Exam: EOMI, Normal appearance, PERRL Pupil Exam: NORMAL ACCOMODATION - ENT Exam ENT Exam: Mucous Membranes Moist - Respiratory Exam Respiratory Exam: Clear to Ausculation Bilateral, NORMAL BREATHING PATTERN. absent: Respiratory Distress Additional comments: Trach in place - Cardiovascular Exam Cardiovascular Exam: REGULAR RHYTHM, +S1, +S2 - GI/Abdominal Exam GI & Abdominal Exam: Soft, Normal Bowel Sounds. absent: Distended, Firm, Guarding, Tenderness Additional comments: peg in place - Extremities Exam Extremities Exam: Normal Inspection. absent: Calf Tenderness, Pedal Edema - Back Exam Back Exam: NORMAL INSPECTION. absent: CVA tenderness (L), CVA tenderness (R), paraspinal tenderness - Neurological Exam Neurological Exam: Awake. absent: Alert, CN II-XII Intact, Oriented x3 Neuro motor strength exam: Left Upper Extremity: 5, Right Upper Extremity: 5, Left Lower Extremity: 5, Right Lower Extremity: 5 - Psychiatric Exam Psychiatric exam: Normal Mood - Skin Skin Exam: Dry, Intact, Normal Color, Warm Assessment and Plan - Assessment and Plan (Free Text) Assessment: Anoxic brain injury s/p cardiac arrest in 05/2015 no acute changes Awake, not alert, not sedated continue current management Stable Constipation No BM yesterday Had BM in the PM of 02/24 Nursing to record bowel movements Dulcolax 5mg PO Q72 hours prn constipation/no bowel movement Blood at trach site resolved Will talk to respiratory/surg about changing the trach if needed 02/11 blood at tracheostomy site suctioned, no blood noted deeper than opening Urinary Retention 02/17 Bladder scan <100 cc Flomax 0.4mg PEG daily Proscar 5mg PEG daily continue Bethanecol 50mg PEG TID- started after persistent retention and found to be effective. monitor I's and O's check bladder scan for residual urine three times weekly 02/04: bladder scan today, 50cc 01/29: condom cath in place 01/28: condom catheter displaced, so difficult to measure accurate output, but patient not retaining urine 01/27: yesterday was straight cath'd with 60cc clear cherie urine. bladder scan done twice with minimal residual urine seen. 01/18: 50 cc residual Sacral Ulcers Small area stage II in upper gluteal cleft- pink base Stage II ulcer present on sacrum Continue frequent turning, protective ointment and skin checks. 01/07- wound care saw patient, air mattress adjusted and protective ointment applied to sacrum Continue wound care Respiratory failure trach collar in place - normal resp pattern, respiratory suctioned pt, improved 02/07: instructed nursing to give guanifesin for thickened secretions 01/12- starting mucinex for secretions CAD (coronary artery disease) s/p cardiac stents on 06/13/15 ASA 81mg via PEG daily Coreg 3.125mg PEG BID Plavix 75mg PO daily Seizures Keppra 500mg PEG BID for seizure prophylaxis Monitor Lower extremity edema Lasix via PEG as needed. Improving Monitor PEG tube dysfunction- resolved IR placed new PEG 01/06, functioning appropriately Cont tube feeding - Isosource 1.5 @ 60 ml/hour Weights weekly UTI- resolved CBI discontinued 01/08, baker catheter removed, Condom catheter- voiding yellow/ slightly cloudy urine Monitor 12/30- Triple lumen Baker in place for irrigation, added neosporin to CBI Urine Culture 12/03/16 - Positive Kleb pneumo, sensitive to cipro - resolved. Off antibiotics now Prophylactic measure Pepcid 20 mg PEG BID Lovenox 40mg SC daily SCDs and offloading boots continue to turn and reposition q2h Continue to monitor medication administrations and clinical presentation weekly labs- last drawn 02/09/17 Per dietary will continue tube feeds at the same rate due to nutritional needs <Amandeep Chavis H - Last Filed: 02/27/17 12:56> Objective - Vital Signs/Intake and Output Vital Signs (last 24 hours): Temp Pulse Resp BP Pulse Ox 98.6 F 81 20 106/68 97 02/27/17 07:00 02/27/17 07:00 02/27/17 07:00 02/27/17 07:00 02/27/17 07:00 Intake and Output: 02/27/17 02/27/17 06:59 18:59 Intake Total 880 Output Total 500 Balance 380 - Medications Medications: Current Medications Aspirin (Aspirin Chewable) 81 mg PEG DAILY [facility] Last Admin: 02/27/17 11:15 Dose: 81 mg Bethanechol Chloride (Urecholine) 50 mg PEG TID [facility] Last Admin: 02/27/17 11:17 Dose: 50 mg Bisacodyl (Dulcolax) 5 mg PO Q72H PRN PRN Reason: Constipation Carvedilol (Coreg) 3.125 mg PEG BID [facility] Last Admin: 02/27/17 11:16 Dose: 3.125 mg Clopidogrel Bisulfate (Plavix) 75 mg PEG DAILY [facility] Last Admin: 02/27/17 11:16 Dose: 75 mg Emollient Ointment (Vaseline Oint) 5 gm TOP BID PRN PRN Reason: Dry skin Enoxaparin Sodium (Lovenox) 40 mg SC DAILY [facility] Last Admin: 02/27/17 11:16 Dose: 40 mg Famotidine (Pepcid) 20 mg PEG BID [facility] Last Admin: 02/27/17 11:16 Dose: 20 mg Finasteride (Proscar) 5 mg PEG DAILY [facility] Last Admin: 02/27/17 11:17 Dose: 5 mg Levetiracetam (Keppra) 500 mg PEG BID [facility] Last Admin: 02/27/17 11:16 Dose: 500 mg Tamsulosin HCl (Flomax) 0.4 mg PEG DAILY [facility] Last Admin: 02/27/17 11:16 Dose: 0.4 mg - Labs Labs: 02/23/17 11:19 02/23/17 11:19 PT 10.6 SECONDS (9.7-12.2) 11/24/15 14:10 INR 1.0 11/24/15 14:10 APTT 25 SECONDS (21-34) 11/24/15 14:10 Assessment and Plan (1) Respiratory failure Status: Acute (2) Anoxic encephalopathy Status: Acute (3) STEMI (ST elevation myocardial infarction) Status: Acute (4) Cardiac arrest Status: Acute (5) Seizures Status: Acute (6) Prophylactic measure Status: Acute Attending/Attestation - Attestation I have personally seen and examined this patient.: Yes I have fully participated in the care of the patient.: Yes I have reviewed all pertinent clinical information, including history, physical exam and plan: Yes
[2017-02-27] MEDS: Enoxaparin 40 mg Syringe SC SCH (11:16)
[2017-02-27] MEDS: levETIRAcetam 100 mg/ml (5ml) Oral Syringe PEG SCH ×2 (11:16→18:15)
--- NOTE | 2017-02-28 07:57 | CP.PCM.PN ---
<BarringtonMichel - Last Filed: 02/28/17 07:56> Subjective - Date & Time of Evaluation Date of Evaluation: 02/28/17 Time of Evaluation: 07:56 - Subjective Subjective: PGY-1 note for hospitalist service. Pt seen and examined at bedside. No overnight events per nursing staff. ROS unobtainable. Objective - Vital Signs/Intake and Output Vital Signs (last 24 hours): Temp Pulse Resp BP Pulse Ox 97.5 F L 70 20 118/78 100 02/28/17 00:00 02/28/17 00:00 02/28/17 00:00 02/28/17 00:00 02/28/17 00:00 Intake and Output: 02/28/17 02/28/17 06:59 18:59 Intake Total 1760 Output Total 800 Balance 960 - Medications Medications: Current Medications Aspirin (Aspirin Chewable) 81 mg PEG DAILY [facility] Last Admin: 02/27/17 11:15 Dose: 81 mg Bethanechol Chloride (Urecholine) 50 mg PEG TID [facility] Last Admin: 02/27/17 18:15 Dose: 50 mg Bisacodyl (Dulcolax) 5 mg PO Q72H PRN PRN Reason: Constipation Carvedilol (Coreg) 3.125 mg PEG BID [facility] Last Admin: 02/27/17 18:15 Dose: 3.125 mg Clopidogrel Bisulfate (Plavix) 75 mg PEG DAILY [facility] Last Admin: 02/27/17 11:16 Dose: 75 mg Emollient Ointment (Vaseline Oint) 5 gm TOP BID PRN PRN Reason: Dry skin Enoxaparin Sodium (Lovenox) 40 mg SC DAILY [facility] Last Admin: 02/27/17 11:16 Dose: 40 mg Famotidine (Pepcid) 20 mg PEG BID [facility] Last Admin: 02/27/17 18:15 Dose: 20 mg Finasteride (Proscar) 5 mg PEG DAILY [facility] Last Admin: 02/27/17 11:17 Dose: 5 mg Levetiracetam (Keppra) 500 mg PEG BID [facility] Last Admin: 02/27/17 18:15 Dose: 500 mg Tamsulosin HCl (Flomax) 0.4 mg PEG DAILY [facility] Last Admin: 02/27/17 11:16 Dose: 0.4 mg - Labs Labs: 02/23/17 11:19 02/23/17 11:19 PT 10.6 SECONDS (9.7-12.2) 11/24/15 14:10 INR 1.0 11/24/15 14:10 APTT 25 SECONDS (21-34) 11/24/15 14:10 - Constitutional Appears: No Acute Distress, Chronically Ill - Head Exam Head Exam: ATRAUMATIC, NORMOCEPHALIC - ENT Exam ENT Exam: Mucous Membranes Moist - Respiratory Exam Respiratory Exam: Clear to Ausculation Bilateral, NORMAL BREATHING PATTERN - Cardiovascular Exam Cardiovascular Exam: +S1, +S2 - GI/Abdominal Exam GI & Abdominal Exam: Soft, Normal Bowel Sounds - Neurological Exam Neurological Exam: Alert, Awake - Skin Skin Exam: Dry, Warm Assessment and Plan - Assessment and Plan (Free Text) Assessment: Anoxic brain injury s/p cardiac arrest in 05/2015 no acute changes Awake, not alert, not sedated continue current management Stable Constipation No BM yesterday Had BM in the PM of 02/24 Nursing to record bowel movements Dulcolax 5mg PO Q72 hours prn constipation/no bowel movement Blood at trach site resolved Will talk to respiratory/surg about changing the trach if needed 02/11 blood at tracheostomy site suctioned, no blood noted deeper than opening Urinary Retention 02/17 Bladder scan <100 cc Flomax 0.4mg PEG daily Proscar 5mg PEG daily continue Bethanecol 50mg PEG TID- started after persistent retention and found to be effective. monitor I's and O's check bladder scan for residual urine three times weekly 02/04: bladder scan today, 50cc 01/29: condom cath in place 01/28: condom catheter displaced, so difficult to measure accurate output, but patient not retaining urine 01/27: yesterday was straight cath'd with 60cc clear cherie urine. bladder scan done twice with minimal residual urine seen. 01/18: 50 cc residual Sacral Ulcers Small area stage II in upper gluteal cleft- pink base Stage II ulcer present on sacrum Continue frequent turning, protective ointment and skin checks. 01/07- wound care saw patient, air mattress adjusted and protective ointment applied to sacrum Continue wound care Respiratory failure trach collar in place - normal resp pattern, respiratory suctioned pt, improved 02/07: instructed nursing to give guanifesin for thickened secretions 01/12- starting mucinex for secretions CAD (coronary artery disease) s/p cardiac stents on 06/13/15 ASA 81mg via PEG daily Coreg 3.125mg PEG BID Plavix 75mg PO daily Seizures Keppra 500mg PEG BID for seizure prophylaxis Monitor Lower extremity edema Lasix via PEG as needed. Improving Monitor PEG tube dysfunction- resolved IR placed new PEG 01/06, functioning appropriately Cont tube feeding - Isosource 1.5 @ 60 ml/hour Weights weekly UTI- resolved CBI discontinued 01/08, baker catheter removed, Condom catheter- voiding yellow/ slightly cloudy urine Monitor 12/30- Triple lumen Baker in place for irrigation, added neosporin to CBI Urine Culture 12/03/16 - Positive Kleb pneumo, sensitive to cipro - resolved. Off antibiotics now Prophylactic measure Pepcid 20 mg PEG BID Lovenox 40mg SC daily SCDs and offloading boots continue to turn and reposition q2h Continue to monitor medication administrations and clinical presentation weekly labs- last drawn 02/09/17 Per dietary will continue tube feeds at the same rate due to nutritional needs <Donavan Hallman - Last Filed: 03/25/17 12:03> Objective - Vital Signs/Intake and Output Vital Signs (last 24 hours): Temp Pulse Resp BP Pulse Ox 98.7 F 86 20 115/77 98 03/25/17 08:04 03/25/17 08:04 03/25/17 08:04 03/25/17 08:04 03/25/17 08:04 Intake and Output: 03/25/17 03/25/17 06:59 18:59 Intake Total 1610 Output Total 400 Balance 1210 - Medications Medications: Current Medications Aspirin (Aspirin Chewable) 81 mg PEG DAILY [facility] Last Admin: 03/25/17 10:10 Dose: 81 mg Bethanechol Chloride (Urecholine) 50 mg PEG TID [facility] Last Admin: 03/24/17 18:05 Dose: 50 mg Bisacodyl (Dulcolax) 5 mg PO Q72H PRN PRN Reason: Constipation Last Admin: 03/20/17 10:57 Dose: 5 mg Carvedilol (Coreg) 3.125 mg PEG BID [facility] Last Admin: 03/25/17 10:11 Dose: 3.125 mg Clopidogrel Bisulfate (Plavix) 75 mg PEG DAILY [facility] Last Admin: 03/25/17 10:11 Dose: 75 mg Emollient Ointment (Vaseline Oint) 5 gm TOP BID PRN PRN Reason: Dry skin Last Admin: 03/20/17 13:41 Dose: 5 gm Enoxaparin Sodium (Lovenox) 40 mg SC DAILY [facility] Last Admin: 03/25/17 10:10 Dose: 40 mg Famotidine (Pepcid) 20 mg PEG BID [facility] Last Admin: 03/25/17 10:10 Dose: 20 mg Finasteride (Proscar) 5 mg PEG DAILY [facility] Last Admin: 03/25/17 10:11 Dose: 5 mg Meropenem 1 gm/ Sodium (Chloride) 100 mls @ 200 mls/hr IVPB Q8H [facility] Last Admin: 03/25/17 10:11 Dose: 200 mls/hr Levetiracetam (Keppra) 500 mg PEG BID [facility] Last Admin: 03/24/17 18:05 Dose: 500 mg Tamsulosin HCl (Flomax) 0.4 mg PEG DAILY [facility] Last Admin: 03/25/17 10:10 Dose: 0.4 mg - Labs Labs: 03/16/17 11:22 03/16/17 11:22 PT 10.6 SECONDS (9.7-12.2) 11/24/15 14:10 INR 1.0 11/24/15 14:10 APTT 25 SECONDS (21-34) 11/24/15 14:10 Attending/Attestation - Attestation I have personally seen and examined this patient.: Yes I have fully participated in the care of the patient.: Yes I have reviewed all pertinent clinical information, including history, physical exam and plan: Yes Notes (Text): Patient seen and examined with the resident. Agree with the resident's evaluation, assessment and plan. Anoxic brain injury
[2017-02-28] MEDS: Enoxaparin 40 mg Syringe SC SCH (09:04)
[2017-02-28] MEDS: levETIRAcetam 100 mg/ml (5ml) Oral Syringe PEG SCH ×2 (09:05→20:58)
--- NOTE | 2017-03-01 00:21 | CP.PCM.PN ---
<Ivania Bernal - Last Filed: 03/01/17 07:08> Subjective - Date & Time of Evaluation Date of Evaluation: 03/01/17 Time of Evaluation: 00:15 - Subjective Subjective: PGY-1 note for medicine service Patient seen and examined at bedside. No acute events per nursing staff. Repsonds to painful stimuli but not verbal commands. ROS unattainable. Objective - Vital Signs/Intake and Output Vital Signs (last 24 hours): Temp Pulse Resp BP Pulse Ox 98.5 F 76 20 127/77 97 02/28/17 16:00 02/28/17 16:00 02/28/17 16:00 02/28/17 16:00 02/28/17 16:00 Intake and Output: 02/28/17 03/01/17 18:59 06:59 Intake Total 880 880 Output Total 400 300 Balance 480 580 - Medications Medications: Current Medications Aspirin (Aspirin Chewable) 81 mg PEG DAILY [facility] Last Admin: 02/28/17 09:04 Dose: 81 mg Bethanechol Chloride (Urecholine) 50 mg PEG TID [facility] Last Admin: 02/28/17 20:58 Dose: 50 mg Bisacodyl (Dulcolax) 5 mg PO Q72H PRN PRN Reason: Constipation Carvedilol (Coreg) 3.125 mg PEG BID [facility] Last Admin: 02/28/17 20:58 Dose: 3.125 mg Clopidogrel Bisulfate (Plavix) 75 mg PEG DAILY [facility] Last Admin: 02/28/17 09:04 Dose: 75 mg Emollient Ointment (Vaseline Oint) 5 gm TOP BID PRN PRN Reason: Dry skin Enoxaparin Sodium (Lovenox) 40 mg SC DAILY [facility] Last Admin: 02/28/17 09:04 Dose: 40 mg Famotidine (Pepcid) 20 mg PEG BID [facility] Last Admin: 02/28/17 20:58 Dose: 20 mg Finasteride (Proscar) 5 mg PEG DAILY [facility] Last Admin: 02/28/17 09:04 Dose: 5 mg Levetiracetam (Keppra) 500 mg PEG BID [facility] Last Admin: 02/28/17 20:58 Dose: 500 mg Tamsulosin HCl (Flomax) 0.4 mg PEG DAILY [facility] Last Admin: 02/28/17 09:04 Dose: 0.4 mg - Labs Labs: 02/23/17 11:19 02/23/17 11:19 PT 10.6 SECONDS (9.7-12.2) 11/24/15 14:10 INR 1.0 11/24/15 14:10 APTT 25 SECONDS (21-34) 11/24/15 14:10 - Constitutional Appears: Non-toxic, No Acute Distress - Head Exam Head Exam: ATRAUMATIC, NORMAL INSPECTION - Eye Exam Eye Exam: EOMI, Normal appearance, PERRL Pupil Exam: NORMAL ACCOMODATION - ENT Exam ENT Exam: Mucous Membranes Moist - Respiratory Exam Respiratory Exam: Clear to Ausculation Bilateral, NORMAL BREATHING PATTERN. absent: Respiratory Distress - Cardiovascular Exam Cardiovascular Exam: REGULAR RHYTHM, +S1, +S2 - GI/Abdominal Exam GI & Abdominal Exam: Soft, Normal Bowel Sounds. absent: Distended, Firm, Guarding, Tenderness Additional comments: peg in place - Extremities Exam Extremities Exam: Normal Inspection. absent: Calf Tenderness, Pedal Edema, Tenderness - Back Exam Back Exam: NORMAL INSPECTION. absent: CVA tenderness (L), paraspinal tenderness - Neurological Exam Neurological Exam: Awake. absent: Alert, CN II-XII Intact, Oriented x3 Neuro motor strength exam: Left Upper Extremity: 5, Right Upper Extremity: 5, Left Lower Extremity: 5, Right Lower Extremity: 5 - Psychiatric Exam Psychiatric exam: Normal Affect - Skin Skin Exam: Dry, Intact, Normal Color, Warm Assessment and Plan - Assessment and Plan (Free Text) Assessment: Anoxic brain injury s/p cardiac arrest in 05/2015 no acute changes Awake, not alert, not sedated continue current management Stable Constipation 03/01 Per nursing pt is having adequate bowel movements Had BM in the PM of 02/24 Nursing to record bowel movements Dulcolax 5mg PO Q72 hours prn constipation/no bowel movement Blood at trach site resolved Will talk to respiratory/surg about changing the trach if needed 02/11 blood at tracheostomy site suctioned, no blood noted deeper than opening Urinary Retention 02/17 Bladder scan <100 cc Flomax 0.4mg PEG daily Proscar 5mg PEG daily continue Bethanecol 50mg PEG TID- started after persistent retention and found to be effective. monitor I's and O's check bladder scan for residual urine three times weekly 02/04: bladder scan today, 50cc 01/29: condom cath in place 01/28: condom catheter displaced, so difficult to measure accurate output, but patient not retaining urine 01/27: yesterday was straight cath'd with 60cc clear cherie urine. bladder scan done twice with minimal residual urine seen. 01/18: 50 cc residual Sacral Ulcers Small area stage II in upper gluteal cleft- pink base Stage II ulcer present on sacrum Continue frequent turning, protective ointment and skin checks. 01/07- wound care saw patient, air mattress adjusted and protective ointment applied to sacrum Continue wound care Respiratory failure trach collar in place - normal resp pattern, respiratory suctioned pt, improved 02/07: instructed nursing to give guanifesin for thickened secretions 01/12- starting mucinex for secretions CAD (coronary artery disease) s/p cardiac stents on 06/13/15 ASA 81mg via PEG daily Coreg 3.125mg PEG BID Plavix 75mg PO daily Seizures Keppra 500mg PEG BID for seizure prophylaxis Monitor Lower extremity edema Lasix via PEG as needed. Improving Monitor PEG tube dysfunction- resolved IR placed new PEG 01/06, functioning appropriately Cont tube feeding - Isosource 1.5 @ 60 ml/hour Weights weekly UTI- resolved CBI discontinued 01/08, baker catheter removed, Condom catheter- voiding yellow/ slightly cloudy urine Monitor 12/30- Triple lumen Baker in place for irrigation, added neosporin to CBI Urine Culture 12/03/16 - Positive Kleb pneumo, sensitive to cipro - resolved. Off antibiotics now Prophylactic measure Pepcid 20 mg PEG BID Lovenox 40mg SC daily SCDs and offloading boots continue to turn and reposition q2h Continue to monitor medication administrations and clinical presentation weekly labs- last drawn 02/09/17 Per dietary will continue tube feeds at the same rate due to nutritional needs <Donavan Hallman - Last Filed: 03/25/17 12:16> Objective - Vital Signs/Intake and Output Vital Signs (last 24 hours): Temp Pulse Resp BP Pulse Ox 98.7 F 86 20 115/77 98 03/25/17 08:04 03/25/17 08:04 03/25/17 08:04 03/25/17 08:04 03/25/17 08:04 Intake and Output: 03/25/17 03/25/17 06:59 18:59 Intake Total 1610 Output Total 400 Balance 1210 - Medications Medications: Current Medications Aspirin (Aspirin Chewable) 81 mg PEG DAILY [facility] Last Admin: 03/25/17 10:10 Dose: 81 mg Bethanechol Chloride (Urecholine) 50 mg PEG TID [facility] Last Admin: 03/24/17 18:05 Dose: 50 mg Bisacodyl (Dulcolax) 5 mg PO Q72H PRN PRN Reason: Constipation Last Admin: 03/20/17 10:57 Dose: 5 mg Carvedilol (Coreg) 3.125 mg PEG BID [facility] Last Admin: 03/25/17 10:11 Dose: 3.125 mg Clopidogrel Bisulfate (Plavix) 75 mg PEG DAILY [facility] Last Admin: 03/25/17 10:11 Dose: 75 mg Emollient Ointment (Vaseline Oint) 5 gm TOP BID PRN PRN Reason: Dry skin Last Admin: 03/20/17 13:41 Dose: 5 gm Enoxaparin Sodium (Lovenox) 40 mg SC DAILY [facility] Last Admin: 03/25/17 10:10 Dose: 40 mg Famotidine (Pepcid) 20 mg PEG BID [facility] Last Admin: 03/25/17 10:10 Dose: 20 mg Finasteride (Proscar) 5 mg PEG DAILY [facility] Last Admin: 03/25/17 10:11 Dose: 5 mg Meropenem 1 gm/ Sodium (Chloride) 100 mls @ 200 mls/hr IVPB Q8H [facility] Last Admin: 03/25/17 10:11 Dose: 200 mls/hr Levetiracetam (Keppra) 500 mg PEG BID [facility] Last Admin: 03/25/17 12:12 Dose: 500 mg Tamsulosin HCl (Flomax) 0.4 mg PEG DAILY [facility] Last Admin: 03/25/17 10:10 Dose: 0.4 mg - Labs Labs: 03/16/17 11:22 03/16/17 11:22 PT 10.6 SECONDS (9.7-12.2) 11/24/15 14:10 INR 1.0 11/24/15 14:10 APTT 25 SECONDS (21-34) 11/24/15 14:10 Attending/Attestation - Attestation I have personally seen and examined this patient.: Yes I have fully participated in the care of the patient.: Yes I have reviewed all pertinent clinical information, including history, physical exam and plan: Yes Notes (Text): Patient seen and examined with the resident. Agree with the resident's evaluation, assessment and plan. Anoxic brain injury
[2017-03-01] MEDS: levETIRAcetam 100 mg/ml (5ml) Oral Syringe PEG SCH ×2 (10:46→17:34)
[2017-03-01] MEDS: Enoxaparin 40 mg Syringe SC SCH (10:46)
[2017-03-02 06:18] LABS: BASO % 0.3 % (0.0-2.0); EOS # 0.3 K/uL (0.0-0.7); EOS % 3.5 % (0.0-4.0); HEMOGLOBIN 12.3 g/dL (12.0-18.0); LYMPH # 2.4 K/uL (1.0-4.3); LYMPH % 25.9 % (20.0-40.0); MEAN CELL VOLUME 87.7 fL (80.0-94.0); MEAN CORPUSCULAR HEMOGLOBIN 28.5 pg (27.0-31.0); MEAN CORPUSCULAR HGB CONC 32.5 g/dL (33.0-37.0); MEAN PLATELET VOLUME 9.2 fL (7.2-11.7); MONO # 0.9 K/uL (0.0-0.8); MONO % 9.4 % (0.0-10.0); NEUT # 5.6 K/uL (1.8-7.0); NEUT % 60.9 % (50.0-75.0); RBC 4.31 Mil/uL (4.40-5.90); RED CELL DISTRIBUTION WIDTH 15.5 % (11.5-14.5); WHITE BLOOD COUNT 9.2 K/uL (4.8-10.8)
[2017-03-02 06:25] LABS: ALBUMIN 3.6 g/dL (3.5-5.0)
[2017-03-02 06:28] LABS: ALB/GLOB RATIO 0.9 (1.0-2.1); ALT/SGPT 66 U/L (21-72); AST/SGOT 30 U/L (17-59); BLOOD UREA NITROGEN 18 mg/dL (9-20); GFR NON-AFRICAN AMERICAN > 60
[2017-03-02 06:29] LABS: CALCIUM 8.2 mg/dl (8.6-10.4)
[2017-03-02] MEDS: levETIRAcetam 100 mg/ml (5ml) Oral Syringe PEG SCH ×2 (09:27→18:40)
[2017-03-02] MEDS: Enoxaparin 40 mg Syringe SC SCH (09:27)
--- NOTE | 2017-03-02 16:12 | CP.PCM.PN ---
<Bolivar Miller - Last Filed: 03/02/17 16:09> Subjective - Date & Time of Evaluation Date of Evaluation: 03/02/17 Time of Evaluation: 08:54 - Subjective Subjective: Pt seen and examined. Pt not in distress. ROS unattainable due to pt's clinical condition s/p anoix brain injury. Objective - Vital Signs/Intake and Output Vital Signs (last 24 hours): Temp Pulse Resp BP Pulse Ox 97.9 F 72 20 108/73 98 03/02/17 08:00 03/02/17 11:13 03/02/17 08:00 03/02/17 08:00 03/02/17 08:00 Intake and Output: 03/02/17 03/02/17 06:59 18:59 Intake Total 1560 880 Output Total 1000 300 Balance 560 580 - Medications Medications: Current Medications Aspirin (Aspirin Chewable) 81 mg PEG DAILY [facility] Last Admin: 03/02/17 09:26 Dose: 81 mg Bethanechol Chloride (Urecholine) 50 mg PEG TID [facility] Last Admin: 03/02/17 13:39 Dose: 50 mg Bisacodyl (Dulcolax) 5 mg PO Q72H PRN PRN Reason: Constipation Carvedilol (Coreg) 3.125 mg PEG BID [facility] Last Admin: 03/02/17 09:26 Dose: 3.125 mg Clopidogrel Bisulfate (Plavix) 75 mg PEG DAILY [facility] Last Admin: 03/02/17 09:26 Dose: 75 mg Emollient Ointment (Vaseline Oint) 5 gm TOP BID PRN PRN Reason: Dry skin Enoxaparin Sodium (Lovenox) 40 mg SC DAILY [facility] Last Admin: 03/02/17 09:27 Dose: 40 mg Famotidine (Pepcid) 20 mg PEG BID [facility] Last Admin: 03/02/17 09:26 Dose: 20 mg Finasteride (Proscar) 5 mg PEG DAILY [facility] Last Admin: 03/02/17 09:26 Dose: 5 mg Levetiracetam (Keppra) 500 mg PEG BID [facility] Last Admin: 03/02/17 09:27 Dose: 500 mg Tamsulosin HCl (Flomax) 0.4 mg PEG DAILY [facility] Last Admin: 03/02/17 09:27 Dose: 0.4 mg - Labs Labs: 03/02/17 06:03 03/02/17 06:03 PT 10.6 SECONDS (9.7-12.2) 11/24/15 14:10 INR 1.0 11/24/15 14:10 APTT 25 SECONDS (21-34) 11/24/15 14:10 - Constitutional Appears: No Acute Distress, Chronically Ill - Head Exam Head Exam: ATRAUMATIC, NORMOCEPHALIC - Eye Exam Eye Exam: absent: EOMI, PERRL - ENT Exam ENT Exam: Mucous Membranes Dry. absent: Mucous Membranes Moist - Respiratory Exam Respiratory Exam: NORMAL BREATHING PATTERN - Cardiovascular Exam Cardiovascular Exam: +S1, +S2 - GI/Abdominal Exam GI & Abdominal Exam: Soft. absent: Tenderness - Extremities Exam Extremities Exam: Full ROM. absent: Pedal Edema - Neurological Exam Neurological Exam: absent: Alert, Awake, Oriented x3 - Skin Skin Exam: Normal Color, Warm Assessment and Plan - Assessment and Plan (Free Text) Assessment: Anoxic brain injury s/p cardiac arrest in 05/2015 no acute changes Awake, not alert, not sedated continue current management Stable Constipation 03/01 Per nursing pt is having adequate bowel movements Had BM in the PM of 02/24 Nursing to record bowel movements Dulcolax 5mg PO Q72 hours prn constipation/no bowel movement Blood at trach site resolved Will talk to respiratory/surg about changing the trach if needed 02/11 blood at tracheostomy site suctioned, no blood noted deeper than opening Urinary Retention 02/17 Bladder scan <100 cc Flomax 0.4mg PEG daily Proscar 5mg PEG daily continue Bethanecol 50mg PEG TID- started after persistent retention and found to be effective. monitor I's and O's check bladder scan for residual urine three times weekly 02/04: bladder scan today, 50cc 01/29: condom cath in place 01/28: condom catheter displaced, so difficult to measure accurate output, but patient not retaining urine 01/27: yesterday was straight cath'd with 60cc clear cherie urine. bladder scan done twice with minimal residual urine seen. 01/18: 50 cc residual Sacral Ulcers Small area stage II in upper gluteal cleft- pink base Stage II ulcer present on sacrum Continue frequent turning, protective ointment and skin checks. 01/07- wound care saw patient, air mattress adjusted and protective ointment applied to sacrum Continue wound care Respiratory failure trach collar in place - normal resp pattern, respiratory suctioned pt, improved 02/07: instructed nursing to give guanifesin for thickened secretions 01/12- starting mucinex for secretions CAD (coronary artery disease) s/p cardiac stents on 06/13/15 ASA 81mg via PEG daily Coreg 3.125mg PEG BID Plavix 75mg PO daily Seizures Keppra 500mg PEG BID for seizure prophylaxis Monitor Lower extremity edema Lasix via PEG as needed. Improving Monitor PEG tube dysfunction- resolved IR placed new PEG 01/06, functioning appropriately Cont tube feeding - Isosource 1.5 @ 60 ml/hour Weights weekly UTI- resolved CBI discontinued 01/08, baker catheter removed, Condom catheter- voiding yellow/ slightly cloudy urine Monitor 12/30- Triple lumen Baker in place for irrigation, added neosporin to CBI Urine Culture 12/03/16 - Positive Kleb pneumo, sensitive to cipro - resolved. Off antibiotics now Prophylactic measure Pepcid 20 mg PEG BID Lovenox 40mg SC daily SCDs and offloading boots continue to turn and reposition q2h Continue to monitor medication administrations and clinical presentation weekly labs- last drawn 02/09/17 Per dietary will continue tube feeds at the same rate due to nutritional needs <Donnell Ying - Last Filed: 03/02/17 16:31> Objective - Vital Signs/Intake and Output Vital Signs (last 24 hours): Temp Pulse Resp BP Pulse Ox 97.9 F 72 20 108/73 98 03/02/17 08:00 03/02/17 11:13 03/02/17 08:00 03/02/17 08:00 03/02/17 08:00 Intake and Output: 03/02/17 03/02/17 06:59 18:59 Intake Total 1560 880 Output Total 1000 300 Balance 560 580 - Medications Medications: Current Medications Aspirin (Aspirin Chewable) 81 mg PEG DAILY [facility] Last Admin: 03/02/17 09:26 Dose: 81 mg Bethanechol Chloride (Urecholine) 50 mg PEG TID [facility] Last Admin: 03/02/17 13:39 Dose: 50 mg Bisacodyl (Dulcolax) 5 mg PO Q72H PRN PRN Reason: Constipation Carvedilol (Coreg) 3.125 mg PEG BID [facility] Last Admin: 03/02/17 09:26 Dose: 3.125 mg Clopidogrel Bisulfate (Plavix) 75 mg PEG DAILY [facility] Last Admin: 03/02/17 09:26 Dose: 75 mg Emollient Ointment (Vaseline Oint) 5 gm TOP BID PRN PRN Reason: Dry skin Enoxaparin Sodium (Lovenox) 40 mg SC DAILY [facility] Last Admin: 03/02/17 09:27 Dose: 40 mg Famotidine (Pepcid) 20 mg PEG BID [facility] Last Admin: 03/02/17 09:26 Dose: 20 mg Finasteride (Proscar) 5 mg PEG DAILY [facility] Last Admin: 03/02/17 09:26 Dose: 5 mg Levetiracetam (Keppra) 500 mg PEG BID [facility] Last Admin: 03/02/17 09:27 Dose: 500 mg Tamsulosin HCl (Flomax) 0.4 mg PEG DAILY [facility] Last Admin: 03/02/17 09:27 Dose: 0.4 mg - Labs Labs: 03/02/17 06:03 03/02/17 06:03 PT 10.6 SECONDS (9.7-12.2) 11/24/15 14:10 INR 1.0 11/24/15 14:10 APTT 25 SECONDS (21-34) 11/24/15 14:10 Attending/Attestation - Attestation I have personally seen and examined this patient.: Yes I have fully participated in the care of the patient.: Yes I have reviewed all pertinent clinical information, including history, physical exam and plan: Yes Notes (Text): 03/02/17 16:30 Patient was seen and examined at bedside with the resident Continue current medical management No change in clinical condition I agree with the above history and physical and assessment/plan by the resident.
[2017-03-03] MEDS: levETIRAcetam 100 mg/ml (5ml) Oral Syringe PEG SCH (09:11)
[2017-03-03] MEDS: Enoxaparin 40 mg Syringe SC SCH (09:12)
--- NOTE | 2017-03-03 09:32 | CP.PCM.PN ---
<Mee Luciano - Last Filed: 03/03/17 14:04> Subjective - Date & Time of Evaluation Date of Evaluation: 03/03/17 Time of Evaluation: 09:32 - Subjective Subjective: Patient seen and examined at bedside. In no acute distress. Per nursing, no events overnight. Unable to obtain history due to clinical state secondary to anoxic brain injury. Objective - Vital Signs/Intake and Output Vital Signs (last 24 hours): Temp Pulse Resp BP Pulse Ox 98.7 F 80 20 115/79 97 03/03/17 07:40 03/03/17 07:59 03/03/17 07:40 03/03/17 07:40 03/03/17 07:40 Intake and Output: 03/03/17 03/03/17 06:59 18:59 Intake Total 1760 Output Total 900 Balance 860 - Medications Medications: Current Medications Aspirin (Aspirin Chewable) 81 mg PEG DAILY [facility] Last Admin: 03/03/17 09:12 Dose: 81 mg Bethanechol Chloride (Urecholine) 50 mg PEG TID [facility] Last Admin: 03/03/17 09:11 Dose: 50 mg Bisacodyl (Dulcolax) 5 mg PO Q72H PRN PRN Reason: Constipation Carvedilol (Coreg) 3.125 mg PEG BID [facility] Last Admin: 03/03/17 09:12 Dose: 3.125 mg Clopidogrel Bisulfate (Plavix) 75 mg PEG DAILY [facility] Last Admin: 03/03/17 09:12 Dose: 75 mg Emollient Ointment (Vaseline Oint) 5 gm TOP BID PRN PRN Reason: Dry skin Enoxaparin Sodium (Lovenox) 40 mg SC DAILY [facility] Last Admin: 03/03/17 09:12 Dose: 40 mg Famotidine (Pepcid) 20 mg PEG BID [facility] Last Admin: 03/03/17 09:12 Dose: 20 mg Finasteride (Proscar) 5 mg PEG DAILY [facility] Last Admin: 03/03/17 09:12 Dose: 5 mg Levetiracetam (Keppra) 500 mg PEG BID [facility] Last Admin: 03/03/17 09:11 Dose: 500 mg Tamsulosin HCl (Flomax) 0.4 mg PEG DAILY [facility] Last Admin: 03/03/17 09:12 Dose: 0.4 mg - Labs Labs: 03/02/17 06:03 03/02/17 06:03 PT 10.6 SECONDS (9.7-12.2) 11/24/15 14:10 INR 1.0 11/24/15 14:10 APTT 25 SECONDS (21-34) 11/24/15 14:10 - Constitutional Appears: Non-toxic, No Acute Distress - Head Exam Head Exam: ATRAUMATIC, NORMAL INSPECTION, NORMOCEPHALIC - Eye Exam Eye Exam: PERRL - ENT Exam ENT Exam: Mucous Membranes Moist - Neck Exam Additional comments: trach site in tact, no surrounding erythema - Respiratory Exam Respiratory Exam: Clear to Ausculation Bilateral, NORMAL BREATHING PATTERN - Cardiovascular Exam Cardiovascular Exam: +S1, +S2. absent: Tachycardia, Murmur - GI/Abdominal Exam GI & Abdominal Exam: Distended, Firm, Normal Bowel Sounds Additional comments: PEG site examined, no surrounding erythema. Mild distention of abdomen, firm to palpation. - Exam Additional comments: condom catheter in place - Extremities Exam Additional comments: Prevalon boots and SCDs in place. - Neurological Exam Neurological Exam: Alert - Psychiatric Exam Psychiatric exam: Flat Affect - Skin Additional comments: stage II sacral ulcer to upper gluteal cleft Assessment and Plan - Assessment and Plan (Free Text) Assessment: Anoxic brain injury s/p cardiac arrest in 05/2015 no acute changes Awake, not alert, not sedated continue current management Stable Constipation 03/02 Will follow up with nurse regarding bowel movements as patient's abdomen is slightly distended and firm. Had BM on 03/01 Nursing to record bowel movements Dulcolax 5mg PO Q72 hours prn constipation/no bowel movement Blood at trach site resolved Will talk to respiratory/surg about changing the trach if needed 02/11 blood at tracheostomy site suctioned, no blood noted deeper than opening Urinary Retention 02/17 Bladder scan <100 cc Flomax 0.4mg PEG daily Proscar 5mg PEG daily continue Bethanecol 50mg PEG TID- started after persistent retention and found to be effective. monitor I's and O's check bladder scan for residual urine three times weekly 02/04: bladder scan today, 50cc 01/29: condom cath in place 01/28: condom catheter displaced, so difficult to measure accurate output, but patient not retaining urine 01/27: yesterday was straight cath'd with 60cc clear cherie urine. bladder scan done twice with minimal residual urine seen. 01/18: 50 cc residual Sacral Ulcers Small area stage II in upper gluteal cleft- pink base Stage II ulcer present on sacrum Continue frequent turning, protective ointment and skin checks. 01/07- wound care saw patient, air mattress adjusted and protective ointment applied to sacrum Continue wound care Respiratory failure trach collar in place - normal resp pattern, respiratory suctioned pt, improved 02/07: instructed nursing to give guanifesin for thickened secretions 01/12- starting mucinex for secretions CAD (coronary artery disease) s/p cardiac stents on 06/13/15 ASA 81mg via PEG daily Coreg 3.125mg PEG BID Plavix 75mg PO daily Seizures Keppra 500mg PEG BID for seizure prophylaxis Monitor Lower extremity edema Stat dose of Lasix 20 mg via PEG given Lasix via PEG as needed. Improving Monitor PEG tube dysfunction resolved IR placed new PEG 01/06, functioning appropriately Cont tube feeding - Isosource 1.5 @ 60 ml/hour Weights weekly UTI resolved CBI discontinued 01/08, baker catheter removed, Condom catheter- voiding yellow/ slightly cloudy urine Monitor 12/30- Triple lumen Baker in place for irrigation, added neosporin to CBI Urine Culture 12/03/16 - Positive Kleb pneumo, sensitive to cipro - resolved. Off antibiotics now Prophylactic measure Pepcid 20 mg PEG BID Lovenox 40mg SC daily SCDs and offloading boots continue to turn and reposition q2h Continue to monitor medication administrations and clinical presentation weekly labs- last drawn 02/09/17 Per dietary will continue tube feeds at the same rate due to nutritional needs <Donnell Ying - Last Filed: 03/04/17 09:11> Objective - Vital Signs/Intake and Output Vital Signs (last 24 hours): Temp Pulse Resp BP Pulse Ox 98.7 F 85 20 129/75 99 03/04/17 07:19 03/04/17 07:19 03/04/17 07:19 03/04/17 07:19 03/04/17 07:19 Intake and Output: 03/04/17 03/04/17 06:59 18:59 Intake Total 1760 Output Total 700 Balance 1060 - Medications Medications: Current Medications Aspirin (Aspirin Chewable) 81 mg PEG DAILY [facility] Last Admin: 03/03/17 09:12 Dose: 81 mg Bethanechol Chloride (Urecholine) 50 mg PEG TID [facility] Last Admin: 03/03/17 13:56 Dose: 50 mg Bisacodyl (Dulcolax) 5 mg PO Q72H PRN PRN Reason: Constipation Carvedilol (Coreg) 3.125 mg PEG BID [facility] Last Admin: 03/03/17 09:12 Dose: 3.125 mg Clopidogrel Bisulfate (Plavix) 75 mg PEG DAILY [facility] Last Admin: 03/03/17 09:12 Dose: 75 mg Emollient Ointment (Vaseline Oint) 5 gm TOP BID PRN PRN Reason: Dry skin Enoxaparin Sodium (Lovenox) 40 mg SC DAILY [facility] Last Admin: 03/03/17 09:12 Dose: 40 mg Famotidine (Pepcid) 20 mg PEG BID [facility] Last Admin: 03/03/17 09:12 Dose: 20 mg Finasteride (Proscar) 5 mg PEG DAILY [facility] Last Admin: 03/03/17 09:12 Dose: 5 mg Levetiracetam (Keppra) 500 mg PEG BID [facility] Last Admin: 03/03/17 09:11 Dose: 500 mg Tamsulosin HCl (Flomax) 0.4 mg PEG DAILY [facility] Last Admin: 03/03/17 09:12 Dose: 0.4 mg - Labs Labs: 03/02/17 06:03 03/02/17 06:03 PT 10.6 SECONDS (9.7-12.2) 11/24/15 14:10 INR 1.0 11/24/15 14:10 APTT 25 SECONDS (21-34) 11/24/15 14:10 Attending/Attestation - Attestation I have personally seen and examined this patient.: Yes I have fully participated in the care of the patient.: Yes I have reviewed all pertinent clinical information, including history, physical exam and plan: Yes Notes (Text): 03/04/17 09:11 Patient was seen and examined at bedside. Patient's abdomen appears to be slightly distended Monitor for bowel movements 1 dose of for Lasix via PEG for mild swelling noted. I discussed the plan of care with the resident and agree with the above history and physical and assessment/plan.
[2017-03-04] MEDS: Enoxaparin 40 mg Syringe SC SCH (10:46)
[2017-03-04] MEDS: levETIRAcetam 100 mg/ml (5ml) Oral Syringe PEG SCH ×2 (10:48→17:44)
--- NOTE | 2017-03-04 12:51 | CP.PCM.PN ---
<Mee Luciano - Last Filed: 03/04/17 12:48> Subjective - Date & Time of Evaluation Date of Evaluation: 03/04/17 Time of Evaluation: 12:48 - Subjective Subjective: Patient seen and examined at bedside. In no acute distress. Per nursing, no events overnight. Unable to obtain history due to clinical state secondary to anoxic brain injury. Objective - Vital Signs/Intake and Output Vital Signs (last 24 hours): Temp Pulse Resp BP Pulse Ox 98.7 F 85 20 129/75 99 03/04/17 07:19 03/04/17 07:19 03/04/17 07:19 03/04/17 07:19 03/04/17 07:19 Intake and Output: 03/04/17 03/04/17 06:59 18:59 Intake Total 1760 Output Total 700 Balance 1060 - Medications Medications: Current Medications Aspirin (Aspirin Chewable) 81 mg PEG DAILY [facility] Last Admin: 03/04/17 10:44 Dose: 81 mg Bethanechol Chloride (Urecholine) 50 mg PEG TID [facility] Last Admin: 03/04/17 10:46 Dose: 50 mg Bisacodyl (Dulcolax) 5 mg PO Q72H PRN PRN Reason: Constipation Carvedilol (Coreg) 3.125 mg PEG BID [facility] Last Admin: 03/04/17 10:48 Dose: 3.125 mg Clopidogrel Bisulfate (Plavix) 75 mg PEG DAILY [facility] Last Admin: 03/04/17 10:49 Dose: 75 mg Emollient Ointment (Vaseline Oint) 5 gm TOP BID PRN PRN Reason: Dry skin Enoxaparin Sodium (Lovenox) 40 mg SC DAILY [facility] Last Admin: 03/04/17 10:46 Dose: 40 mg Famotidine (Pepcid) 20 mg PEG BID [facility] Last Admin: 03/04/17 10:45 Dose: 20 mg Finasteride (Proscar) 5 mg PEG DAILY [facility] Last Admin: 03/04/17 10:47 Dose: 5 mg Levetiracetam (Keppra) 500 mg PEG BID [facility] Last Admin: 03/04/17 10:48 Dose: 500 mg Tamsulosin HCl (Flomax) 0.4 mg PEG DAILY [facility] Last Admin: 03/04/17 10:47 Dose: 0.4 mg - Labs Labs: 03/02/17 06:03 03/02/17 06:03 PT 10.6 SECONDS (9.7-12.2) 11/24/15 14:10 INR 1.0 11/24/15 14:10 APTT 25 SECONDS (21-34) 11/24/15 14:10 - Constitutional Appears: Non-toxic, No Acute Distress - Head Exam Head Exam: ATRAUMATIC, NORMAL INSPECTION, NORMOCEPHALIC - Eye Exam Eye Exam: Normal appearance, PERRL - ENT Exam ENT Exam: Mucous Membranes Moist Additional comments: trach in place - Respiratory Exam Respiratory Exam: NORMAL BREATHING PATTERN. absent: Rales, Rhonchi, Wheezes - Cardiovascular Exam Cardiovascular Exam: +S1, +S2. absent: Diastolic murmur, Murmur - GI/Abdominal Exam GI & Abdominal Exam: Firm, Normal Bowel Sounds. absent: Distended Additional comments: Peg site clean and intact - Exam Additional comments: condom catheter in place - Extremities Exam Additional comments: Prevalon boots and SCDs in place. - Neurological Exam Neurological Exam: Alert, Awake - Psychiatric Exam Psychiatric exam: Flat Affect - Skin Additional comments: healing sacral ulcer Assessment and Plan - Assessment and Plan (Free Text) Assessment: Anoxic brain injury s/p cardiac arrest in 05/2015 no acute changes Awake, not alert, not sedated continue current management Stable Constipation 03/04: Nurse notes patient had bowel movement. 03/02 Will follow up with nurse regarding bowel movements as patient's abdomen is slightly distended and firm. Had BM on 03/01 Nursing to record bowel movements Dulcolax 5mg PO Q72 hours prn constipation/no bowel movement Blood at trach site resolved Will talk to respiratory/surg about changing the trach if needed 02/11 blood at tracheostomy site suctioned, no blood noted deeper than opening Urinary Retention 02/17 Bladder scan <100 cc Flomax 0.4mg PEG daily Proscar 5mg PEG daily continue Bethanecol 50mg PEG TID- started after persistent retention and found to be effective. monitor I's and O's check bladder scan for residual urine three times weekly 02/04: bladder scan today, 50cc 01/29: condom cath in place 01/28: condom catheter displaced, so difficult to measure accurate output, but patient not retaining urine 01/27: yesterday was straight cath'd with 60cc clear cherie urine. bladder scan done twice with minimal residual urine seen. 01/18: 50 cc residual Sacral Ulcers Small area stage II in upper gluteal cleft- pink base Stage II ulcer present on sacrum Continue frequent turning, protective ointment and skin checks. 01/07- wound care saw patient, air mattress adjusted and protective ointment applied to sacrum Continue wound care Respiratory failure trach collar in place - normal resp pattern, respiratory suctioned pt, improved 02/07: instructed nursing to give guanifesin for thickened secretions 01/12- starting mucinex for secretions CAD (coronary artery disease) s/p cardiac stents on 06/13/15 ASA 81mg via PEG daily Coreg 3.125mg PEG BID Plavix 75mg PO daily Seizures Keppra 500mg PEG BID for seizure prophylaxis Monitor Lower extremity edema Stat dose of Lasix 20 mg via PEG given Lasix via PEG as needed. Improving Monitor PEG tube dysfunction resolved IR placed new PEG 01/06, functioning appropriately Cont tube feeding - Isosource 1.5 @ 60 ml/hour Weights weekly UTI resolved CBI discontinued 01/08, baker catheter removed, Condom catheter- voiding yellow/ slightly cloudy urine Monitor 12/30- Triple lumen Baker in place for irrigation, added neosporin to CBI Urine Culture 12/03/16 - Positive Kleb pneumo, sensitive to cipro - resolved. Off antibiotics now Prophylactic measure Pepcid 20 mg PEG BID Lovenox 40mg SC daily SCDs and offloading boots continue to turn and reposition q2h Continue to monitor medication administrations and clinical presentation weekly labs- last drawn 02/09/17 Per dietary will continue tube feeds at the same rate due to nutritional needs <Donnell Ying - Last Filed: 03/04/17 17:13> Objective - Vital Signs/Intake and Output Vital Signs (last 24 hours): Temp Pulse Resp BP Pulse Ox 98.2 F 76 20 101/71 99 03/04/17 15:00 03/04/17 15:00 03/04/17 15:00 03/04/17 15:00 03/04/17 15:00 Intake and Output: 03/04/17 03/04/17 06:59 18:59 Intake Total 1760 880 Output Total 700 550 Balance 1060 330 - Medications Medications: Current Medications Aspirin (Aspirin Chewable) 81 mg PEG DAILY [facility] Last Admin: 03/04/17 10:44 Dose: 81 mg Bethanechol Chloride (Urecholine) 50 mg PEG TID [facility] Last Admin: 03/04/17 14:50 Dose: 50 mg Bisacodyl (Dulcolax) 5 mg PO Q72H PRN PRN Reason: Constipation Carvedilol (Coreg) 3.125 mg PEG BID [facility] Last Admin: 03/04/17 10:48 Dose: 3.125 mg Clopidogrel Bisulfate (Plavix) 75 mg PEG DAILY [facility] Last Admin: 03/04/17 10:49 Dose: 75 mg Emollient Ointment (Vaseline Oint) 5 gm TOP BID PRN PRN Reason: Dry skin Enoxaparin Sodium (Lovenox) 40 mg SC DAILY [facility] Last Admin: 03/04/17 10:46 Dose: 40 mg Famotidine (Pepcid) 20 mg PEG BID [facility] Last Admin: 03/04/17 10:45 Dose: 20 mg Finasteride (Proscar) 5 mg PEG DAILY [facility] Last Admin: 03/04/17 10:47 Dose: 5 mg Levetiracetam (Keppra) 500 mg PEG BID [facility] Last Admin: 03/04/17 10:48 Dose: 500 mg Tamsulosin HCl (Flomax) 0.4 mg PEG DAILY [facility] Last Admin: 03/04/17 10:47 Dose: 0.4 mg - Labs Labs: 03/02/17 06:03 03/02/17 06:03 PT 10.6 SECONDS (9.7-12.2) 11/24/15 14:10 INR 1.0 11/24/15 14:10 APTT 25 SECONDS (21-34) 11/24/15 14:10 Attending/Attestation - Attestation I have personally seen and examined this patient.: Yes I have fully participated in the care of the patient.: Yes I have reviewed all pertinent clinical information, including history, physical exam and plan: Yes Notes (Text): 03/04/17 17:08 Patient was seen and examined at bedside with the resident No current management No change in clinical condition
[2017-03-05] MEDS: Enoxaparin 40 mg Syringe SC SCH ×2 (09:32→18:31)
[2017-03-05] MEDS: levETIRAcetam 100 mg/ml (5ml) Oral Syringe PEG SCH ×2 (09:33→18:27)
--- NOTE | 2017-03-05 13:21 | CP.PCM.PN ---
<Mee Luciano - Last Filed: 03/05/17 13:18> Subjective - Date & Time of Evaluation Date of Evaluation: 03/05/17 Time of Evaluation: 13:18 - Subjective Subjective: Patient seen and examined at bedside. In no acute distress. Per nursing, no events overnight. Unable to obtain history due to clinical state secondary to anoxic brain injury. Objective - Vital Signs/Intake and Output Vital Signs (last 24 hours): Temp Pulse Resp BP Pulse Ox 99.0 F 84 18 119/80 100 03/05/17 07:00 03/05/17 07:00 03/05/17 07:00 03/05/17 07:00 03/05/17 07:00 Intake and Output: 03/05/17 03/05/17 06:59 18:59 Intake Total 1760 Output Total 700 Balance 1060 - Medications Medications: Current Medications Aspirin (Aspirin Chewable) 81 mg PEG DAILY [facility] Last Admin: 03/05/17 09:31 Dose: 81 mg Bethanechol Chloride (Urecholine) 50 mg PEG TID [facility] Last Admin: 03/05/17 09:31 Dose: 50 mg Bisacodyl (Dulcolax) 5 mg PO Q72H PRN PRN Reason: Constipation Carvedilol (Coreg) 3.125 mg PEG BID [facility] Last Admin: 03/05/17 09:32 Dose: 3.125 mg Clopidogrel Bisulfate (Plavix) 75 mg PEG DAILY [facility] Last Admin: 03/05/17 09:31 Dose: 75 mg Emollient Ointment (Vaseline Oint) 5 gm TOP BID PRN PRN Reason: Dry skin Famotidine (Pepcid) 20 mg PEG BID [facility] Last Admin: 03/05/17 09:32 Dose: 20 mg Finasteride (Proscar) 5 mg PEG DAILY [facility] Last Admin: 03/05/17 09:31 Dose: 5 mg Levetiracetam (Keppra) 500 mg PEG BID [facility] Last Admin: 03/05/17 09:33 Dose: 500 mg Tamsulosin HCl (Flomax) 0.4 mg PEG DAILY [facility] Last Admin: 03/05/17 09:32 Dose: 0.4 mg - Labs Labs: 03/02/17 06:03 03/02/17 06:03 PT 10.6 SECONDS (9.7-12.2) 11/24/15 14:10 INR 1.0 11/24/15 14:10 APTT 25 SECONDS (21-34) 11/24/15 14:10 - Constitutional Appears: Non-toxic, No Acute Distress - Head Exam Head Exam: ATRAUMATIC, NORMAL INSPECTION, NORMOCEPHALIC - Eye Exam Eye Exam: Normal appearance, PERRL - ENT Exam ENT Exam: Mucous Membranes Moist - Neck Exam Additional comments: trach in place , no blood clots seen - Respiratory Exam Respiratory Exam: Clear to Ausculation Bilateral, NORMAL BREATHING PATTERN. absent: Rales, Rhonchi, Wheezes - Cardiovascular Exam Cardiovascular Exam: +S1, +S2. absent: Tachycardia - GI/Abdominal Exam GI & Abdominal Exam: Soft, Normal Bowel Sounds. absent: Distended - Extremities Exam Additional comments: Prevalon boots and SCDs in place - Neurological Exam Neurological Exam: Awake - Psychiatric Exam Psychiatric exam: Flat Affect - Skin Additional comments: sacral ulcer healing Assessment and Plan - Assessment and Plan (Free Text) Assessment: Anoxic brain injury s/p cardiac arrest in 05/2015 no acute changes Awake, not alert, not sedated continue current management Stable Constipation 03/05: Per nursing, patient having daily bowel movements 03/04: Nurse notes patient had bowel movement. 03/02 Will follow up with nurse regarding bowel movements as patient's abdomen is slightly distended and firm. Had BM on 03/01 Nursing to record bowel movements Dulcolax 5mg PO Q72 hours prn constipation/no bowel movement Blood at trach site resolved Will talk to respiratory/surg about changing the trach if needed 02/11 blood at tracheostomy site suctioned, no blood noted deeper than opening Urinary Retention 02/17 Bladder scan <100 cc Flomax 0.4mg PEG daily Proscar 5mg PEG daily continue Bethanecol 50mg PEG TID- started after persistent retention and found to be effective. monitor I's and O's check bladder scan for residual urine three times weekly 02/04: bladder scan today, 50cc 01/29: condom cath in place 01/28: condom catheter displaced, so difficult to measure accurate output, but patient not retaining urine 01/27: yesterday was straight cath'd with 60cc clear cherie urine. bladder scan done twice with minimal residual urine seen. 01/18: 50 cc residual Sacral Ulcers Small area stage II in upper gluteal cleft- pink base Stage II ulcer present on sacrum Continue frequent turning, protective ointment and skin checks. 01/07- wound care saw patient, air mattress adjusted and protective ointment applied to sacrum Continue wound care Respiratory failure trach collar in place - normal resp pattern, respiratory suctioned pt, improved 02/07: instructed nursing to give guanifesin for thickened secretions 01/12- starting mucinex for secretions CAD (coronary artery disease) s/p cardiac stents on 06/13/15 ASA 81mg via PEG daily Coreg 3.125mg PEG BID Plavix 75mg PO daily Seizures Keppra 500mg PEG BID for seizure prophylaxis Monitor Lower extremity edema Stat dose of Lasix 20 mg via PEG given Lasix via PEG as needed. Improving Monitor PEG tube dysfunction resolved IR placed new PEG 01/06, functioning appropriately Cont tube feeding - Isosource 1.5 @ 60 ml/hour Weights weekly UTI resolved CBI discontinued 01/08, baker catheter removed, Condom catheter- voiding yellow/ slightly cloudy urine Monitor 12/30- Triple lumen Baker in place for irrigation, added neosporin to CBI Urine Culture 12/03/16 - Positive Kleb pneumo, sensitive to cipro - resolved. Off antibiotics now Prophylactic measure Pepcid 20 mg PEG BID Lovenox 40mg SC daily SCDs and offloading boots continue to turn and reposition q2h Continue to monitor medication administrations and clinical presentation weekly labs- last drawn 02/09/17 Per dietary will continue tube feeds at the same rate due to nutritional needs <Donnell Ying - Last Filed: 03/05/17 15:57> Objective - Vital Signs/Intake and Output Vital Signs (last 24 hours): Temp Pulse Resp BP Pulse Ox 99.0 F 84 18 119/80 100 03/05/17 07:00 03/05/17 07:00 03/05/17 07:00 03/05/17 07:00 03/05/17 07:00 Intake and Output: 03/05/17 03/05/17 06:59 18:59 Intake Total 1760 Output Total 700 Balance 1060 - Medications Medications: Current Medications Aspirin (Aspirin Chewable) 81 mg PEG DAILY [facility] Last Admin: 03/05/17 09:31 Dose: 81 mg Bethanechol Chloride (Urecholine) 50 mg PEG TID [facility] Last Admin: 03/05/17 14:47 Dose: 50 mg Bisacodyl (Dulcolax) 5 mg PO Q72H PRN PRN Reason: Constipation Carvedilol (Coreg) 3.125 mg PEG BID [facility] Last Admin: 03/05/17 09:32 Dose: 3.125 mg Clopidogrel Bisulfate (Plavix) 75 mg PEG DAILY [facility] Last Admin: 03/05/17 09:31 Dose: 75 mg Emollient Ointment (Vaseline Oint) 5 gm TOP BID PRN PRN Reason: Dry skin Enoxaparin Sodium (Lovenox) 40 mg SC DAILY [facility] Famotidine (Pepcid) 20 mg PEG BID [facility] Last Admin: 03/05/17 09:32 Dose: 20 mg Finasteride (Proscar) 5 mg PEG DAILY [facility] Last Admin: 03/05/17 09:31 Dose: 5 mg Levetiracetam (Keppra) 500 mg PEG BID [facility] Last Admin: 03/05/17 09:33 Dose: 500 mg Tamsulosin HCl (Flomax) 0.4 mg PEG DAILY [facility] Last Admin: 03/05/17 09:32 Dose: 0.4 mg - Labs Labs: 03/02/17 06:03 03/02/17 06:03 PT 10.6 SECONDS (9.7-12.2) 11/24/15 14:10 INR 1.0 11/24/15 14:10 APTT 25 SECONDS (21-34) 11/24/15 14:10 Attending/Attestation - Attestation I have personally seen and examined this patient.: Yes I have fully participated in the care of the patient.: Yes I have reviewed all pertinent clinical information, including history, physical exam and plan: Yes Notes (Text): 03/05/17 15:55 Patient was seen and examined at bedside with the resident today Status post cardiac arrest with anoxic brain injury. Patient on trach collar. PEG tube in place Patient is no change in clinical condition We will continue current management Turn and position every 2 hours to avoid decubitus ulcers.
--- NOTE | 2017-03-06 07:22 | CP.PCM.PN ---
<Marcus Yip - Last Filed: 03/06/17 14:54> Subjective - Date & Time of Evaluation Date of Evaluation: 03/06/17 Time of Evaluation: 07:22 - Subjective Subjective: PGY-1 Medicine Progress Note for Dr. Ying Patient seen and examined at bedside. No acute event overnight. Patient resting comfortably in bed and is in no acute distress. Unable to obtain history due to clinical state secondary to anoxic brain injury. Objective - Vital Signs/Intake and Output Vital Signs (last 24 hours): Temp Pulse Resp BP Pulse Ox 98.7 F 68 20 126/87 97 03/06/17 00:00 03/06/17 00:00 03/06/17 00:00 03/06/17 00:00 03/06/17 00:00 Intake and Output: 03/06/17 03/06/17 06:59 18:59 Intake Total 880 880 Output Total 400 300 Balance 480 580 - Medications Medications: Current Medications Aspirin (Aspirin Chewable) 81 mg PEG DAILY [facility] Last Admin: 03/05/17 09:31 Dose: 81 mg Bethanechol Chloride (Urecholine) 50 mg PEG TID [facility] Last Admin: 03/05/17 18:27 Dose: 50 mg Bisacodyl (Dulcolax) 5 mg PO Q72H PRN PRN Reason: Constipation Carvedilol (Coreg) 3.125 mg PEG BID [facility] Last Admin: 03/05/17 18:27 Dose: 3.125 mg Clopidogrel Bisulfate (Plavix) 75 mg PEG DAILY [facility] Last Admin: 03/05/17 09:31 Dose: 75 mg Emollient Ointment (Vaseline Oint) 5 gm TOP BID PRN PRN Reason: Dry skin Enoxaparin Sodium (Lovenox) 40 mg SC DAILY [facility] Last Admin: 03/05/17 18:31 Dose: Not Given Famotidine (Pepcid) 20 mg PEG BID [facility] Last Admin: 03/05/17 18:30 Dose: 20 mg Finasteride (Proscar) 5 mg PEG DAILY [facility] Last Admin: 03/05/17 09:31 Dose: 5 mg Levetiracetam (Keppra) 500 mg PEG BID [facility] Last Admin: 03/05/17 18:27 Dose: 500 mg Tamsulosin HCl (Flomax) 0.4 mg PEG DAILY [facility] Last Admin: 03/05/17 09:32 Dose: 0.4 mg - Labs Labs: 03/02/17 06:03 03/02/17 06:03 PT 10.6 SECONDS (9.7-12.2) 11/24/15 14:10 INR 1.0 11/24/15 14:10 APTT 25 SECONDS (21-34) 11/24/15 14:10 - Constitutional Appears: No Acute Distress - Head Exam Head Exam: ATRAUMATIC, NORMOCEPHALIC - Eye Exam Eye Exam: Normal appearance Pupil Exam: PERRL - ENT Exam ENT Exam: Mucous Membranes Moist - Neck Exam Additional comments: trach in place , no blood clots seen - Respiratory Exam Respiratory Exam: Clear to Ausculation Bilateral, NORMAL BREATHING PATTERN - Cardiovascular Exam Cardiovascular Exam: +S1, +S2. absent: Tachycardia - GI/Abdominal Exam GI & Abdominal Exam: Soft, Normal Bowel Sounds. absent: Tenderness Additional comments: peg tube in place - Extremities Exam Additional comments: Prevalon boots and SCDs in place - Neurological Exam Neurological Exam: absent: Alert, Awake, Normal Gait, Oriented x3 Additional comments: responds to tactile stimuli due to autonomic reflex - Psychiatric Exam Psychiatric exam: Flat Affect - Skin Skin Exam: Dry, Warm Additional comments: sacral ulcer healing appropriately Assessment and Plan - Assessment and Plan (Free Text) Plan: 1. Anoxic brain injury s/p cardiac arrest in 05/2015 no acute changes Awake, not alert, not sedated continue current management Stable 2. Constipation 03/05: Per nursing, patient having daily bowel movements 03/04: Nurse notes patient had bowel movement. 03/02 Will follow up with nurse regarding bowel movements as patient's abdomen is slightly distended and firm. Had BM on 03/01 Nursing to record bowel movements Dulcolax 5mg PO Q72 hours prn constipation/no bowel movement 3. Blood at trach site resolved Will talk to respiratory/surg about changing the trach if needed 02/11 blood at tracheostomy site suctioned, no blood noted deeper than opening 4. Urinary Retention 02/17 Bladder scan <100 cc Flomax 0.4mg PEG daily Proscar 5mg PEG daily continue Bethanecol 50mg PEG TID- started after persistent retention and found to be effective. monitor I's and O's check bladder scan for residual urine three times weekly 02/04: bladder scan today, 50cc 01/29: condom cath in place 01/28: condom catheter displaced, so difficult to measure accurate output, but patient not retaining urine 01/27: yesterday was straight cath'd with 60cc clear cherie urine. bladder scan done twice with minimal residual urine seen. 01/18: 50 cc residual 5. Sacral Ulcers Small area stage II in upper gluteal cleft- pink base Stage II ulcer present on sacrum Continue frequent turning, protective ointment and skin checks. 01/07- wound care saw patient, air mattress adjusted and protective ointment applied to sacrum Continue wound care 6. Respiratory failure trach collar in place - normal resp pattern, respiratory suctioned pt, improved 02/07: instructed nursing to give guanifesin for thickened secretions 01/12- starting mucinex for secretions 7. CAD (coronary artery disease) s/p cardiac stents on 06/13/15 ASA 81mg via PEG daily Coreg 3.125mg PEG BID Plavix 75mg PO daily 8. Seizures Keppra 500mg PEG BID for seizure prophylaxis Monitor 9. Lower extremity edema Stat dose of Lasix 20 mg via PEG given Lasix via PEG as needed. Improving Monitor 10. PEG tube dysfunction resolved IR placed new PEG 01/06, functioning appropriately Cont tube feeding - Isosource 1.5 @ 60 ml/hour Weights weekly 11. UTI resolved CBI discontinued 01/08, baker catheter removed, Condom catheter- voiding yellow/ slightly cloudy urine Monitor 12/30- Triple lumen Baker in place for irrigation, added neosporin to CBI Urine Culture 12/03/16 - Positive Kleb pneumo, sensitive to cipro - resolved. Off antibiotics now 12. Prophylactic measure Pepcid 20 mg PEG BID Lovenox 40mg SC daily SCDs and offloading boots continue to turn and reposition q2h Continue to monitor medication administrations and clinical presentation weekly labs- last drawn 02/09/17 Per dietary will continue tube feeds at the same rate due to nutritional needs <Donnell Ying - Last Filed: 03/07/17 14:19> Objective - Vital Signs/Intake and Output Vital Signs (last 24 hours): Temp Pulse Resp BP Pulse Ox 98.8 F 88 20 127/79 100 03/07/17 07:43 03/07/17 07:43 03/07/17 07:43 03/07/17 07:43 03/07/17 07:43 Intake and Output: 03/07/17 03/07/17 06:59 18:59 Intake Total 1760 Output Total 1250 500 Balance 510 -500 - Medications Medications: Current Medications Aspirin (Aspirin Chewable) 81 mg PEG DAILY [facility] Last Admin: 03/07/17 09:38 Dose: 81 mg Bethanechol Chloride (Urecholine) 50 mg PEG TID [facility] Last Admin: 03/07/17 09:39 Dose: 50 mg Bisacodyl (Dulcolax) 5 mg PO Q72H PRN PRN Reason: Constipation Carvedilol (Coreg) 3.125 mg PEG BID [facility] Last Admin: 03/07/17 09:38 Dose: 3.125 mg Clopidogrel Bisulfate (Plavix) 75 mg PEG DAILY [facility] Last Admin: 03/07/17 09:38 Dose: 75 mg Emollient Ointment (Vaseline Oint) 5 gm TOP BID PRN PRN Reason: Dry skin Enoxaparin Sodium (Lovenox) 40 mg SC DAILY [facility] Last Admin: 03/07/17 09:39 Dose: 40 mg Famotidine (Pepcid) 20 mg PEG BID [facility] Last Admin: 03/07/17 09:38 Dose: 20 mg Finasteride (Proscar) 5 mg PEG DAILY [facility] Last Admin: 03/07/17 09:39 Dose: 5 mg Levetiracetam (Keppra) 500 mg PEG BID [facility] Last Admin: 03/07/17 09:39 Dose: 500 mg Tamsulosin HCl (Flomax) 0.4 mg PEG DAILY [facility] Last Admin: 03/07/17 09:38 Dose: 0.4 mg - Labs Labs: 03/02/17 06:03 03/02/17 06:03 PT 10.6 SECONDS (9.7-12.2) 11/24/15 14:10 INR 1.0 11/24/15 14:10 APTT 25 SECONDS (21-34) 11/24/15 14:10 Attending/Attestation - Attestation I have personally seen and examined this patient.: Yes I have fully participated in the care of the patient.: Yes I have reviewed all pertinent clinical information, including history, physical exam and plan: Yes Notes (Text): 03/07/17 14:19 Patient was seen and examined at bedside with the resident This is no change in clinical condition Patient is unresponsive with anoxic brain injury We will continue current management Turn and position every 2 hours Continue local care of for PEG and trach site
[2017-03-06] MEDS: Enoxaparin 40 mg Syringe SC SCH (10:34)
[2017-03-06] MEDS: levETIRAcetam 100 mg/ml (5ml) Oral Syringe PEG SCH ×2 (10:40→18:32)
--- NOTE | 2017-03-06 22:50 | CP.PCM.PN ---
<Mee Luciano - Last Filed: 03/07/17 00:37> Subjective - Date & Time of Evaluation Date of Evaluation: 03/07/17 Time of Evaluation: 00:05 - Subjective Subjective: Patient seen and examined at bedside. No acute event overnight. Patient resting comfortably in bed and is in no acute distress. Unable to obtain history due to clinical state secondary to anoxic brain injury. Objective - Vital Signs/Intake and Output Vital Signs (last 24 hours): Temp Pulse Resp BP Pulse Ox 98.2 F 76 20 111/75 99 03/06/17 15:00 03/06/17 15:00 03/06/17 15:00 03/06/17 15:00 03/06/17 15:00 Intake and Output: 03/06/17 03/07/17 18:59 06:59 Intake Total 880 Output Total 300 Balance 580 - Medications Medications: Current Medications Aspirin (Aspirin Chewable) 81 mg PEG DAILY [facility] Last Admin: 03/06/17 10:34 Dose: 81 mg Bethanechol Chloride (Urecholine) 50 mg PEG TID [facility] Last Admin: 03/06/17 18:32 Dose: 50 mg Bisacodyl (Dulcolax) 5 mg PO Q72H PRN PRN Reason: Constipation Carvedilol (Coreg) 3.125 mg PEG BID [facility] Last Admin: 03/06/17 18:32 Dose: 3.125 mg Clopidogrel Bisulfate (Plavix) 75 mg PEG DAILY [facility] Last Admin: 03/06/17 10:34 Dose: 75 mg Emollient Ointment (Vaseline Oint) 5 gm TOP BID PRN PRN Reason: Dry skin Enoxaparin Sodium (Lovenox) 40 mg SC DAILY [facility] Last Admin: 03/06/17 10:34 Dose: 40 mg Famotidine (Pepcid) 20 mg PEG BID [facility] Last Admin: 03/06/17 18:32 Dose: 20 mg Finasteride (Proscar) 5 mg PEG DAILY [facility] Last Admin: 03/06/17 10:40 Dose: 5 mg Levetiracetam (Keppra) 500 mg PEG BID [facility] Last Admin: 03/06/17 18:32 Dose: 500 mg Tamsulosin HCl (Flomax) 0.4 mg PEG DAILY [facility] Last Admin: 03/06/17 10:34 Dose: 0.4 mg - Labs Labs: 03/02/17 06:03 03/02/17 06:03 PT 10.6 SECONDS (9.7-12.2) 11/24/15 14:10 INR 1.0 11/24/15 14:10 APTT 25 SECONDS (21-34) 11/24/15 14:10 - Constitutional Appears: Non-toxic, No Acute Distress - Head Exam Head Exam: ATRAUMATIC, NORMAL INSPECTION, NORMOCEPHALIC - Eye Exam Eye Exam: PERRL - ENT Exam ENT Exam: Mucous Membranes Moist - Neck Exam Additional comments: trach site intact , no blood clots seen - Respiratory Exam Respiratory Exam: Clear to Ausculation Bilateral, NORMAL BREATHING PATTERN. absent: Rales, Rhonchi, Wheezes - Cardiovascular Exam Cardiovascular Exam: +S1, +S2. absent: Tachycardia - GI/Abdominal Exam GI & Abdominal Exam: Soft, Normal Bowel Sounds. absent: Firm, Tenderness Additional comments: PEG tube in place, no surrounding erythema - Extremities Exam Additional comments: prevalon boots and SCDs in place - Neurological Exam Neurological Exam: Awake - Psychiatric Exam Psychiatric exam: Flat Affect - Skin Additional comments: healing sacral ulcer Assessment and Plan - Assessment and Plan (Free Text) Assessment: 1. Anoxic brain injury s/p cardiac arrest in 05/2015 no acute changes Awake, not alert, not sedated continue current management Stable 2. Constipation 03/05: Per nursing, patient having daily bowel movements 03/04: Nurse notes patient had bowel movement. 03/02 Will follow up with nurse regarding bowel movements as patient's abdomen is slightly distended and firm. Had BM on 03/01 Nursing to record bowel movements Dulcolax 5mg PO Q72 hours prn constipation/no bowel movement 3. Blood at trach site resolved Will talk to respiratory/surg about changing the trach if needed 02/11 blood at tracheostomy site suctioned, no blood noted deeper than opening 4. Urinary Retention 02/17 Bladder scan <100 cc Flomax 0.4mg PEG daily Proscar 5mg PEG daily continue Bethanecol 50mg PEG TID- started after persistent retention and found to be effective. monitor I's and O's check bladder scan for residual urine three times weekly 02/04: bladder scan today, 50cc 01/29: condom cath in place 01/28: condom catheter displaced, so difficult to measure accurate output, but patient not retaining urine 01/27: yesterday was straight cath'd with 60cc clear cherie urine. bladder scan done twice with minimal residual urine seen. 01/18: 50 cc residual 5. Sacral Ulcers Small area stage II in upper gluteal cleft- pink base Stage II ulcer present on sacrum Continue frequent turning, protective ointment and skin checks. 01/07- wound care saw patient, air mattress adjusted and protective ointment applied to sacrum Continue wound care 6. Respiratory failure trach collar in place - normal resp pattern, respiratory suctioned pt, improved 02/07: instructed nursing to give guanifesin for thickened secretions 01/12- starting mucinex for secretions 7. CAD (coronary artery disease) s/p cardiac stents on 06/13/15 ASA 81mg via PEG daily Coreg 3.125mg PEG BID Plavix 75mg PO daily 8. Seizures Keppra 500mg PEG BID for seizure prophylaxis Monitor 9. Lower extremity edema Stat dose of Lasix 20 mg via PEG given Lasix via PEG as needed. Improving Monitor 10. PEG tube dysfunction resolved IR placed new PEG 01/06, functioning appropriately Cont tube feeding - Isosource 1.5 @ 60 ml/hour Weights weekly 11. UTI resolved CBI discontinued 01/08, baker catheter removed, Condom catheter- voiding yellow/ slightly cloudy urine Monitor 12/30- Triple lumen Baker in place for irrigation, added neosporin to CBI Urine Culture 12/03/16 - Positive Kleb pneumo, sensitive to cipro - resolved. Off antibiotics now 12. Prophylactic measure Pepcid 20 mg PEG BID Lovenox 40mg SC daily SCDs and offloading boots continue to turn and reposition q2h Continue to monitor medication administrations and clinical presentation weekly labs- last drawn 02/09/17 Per dietary will continue tube feeds at the same rate due to nutritional needs <Donnell Ying - Last Filed: 03/07/17 14:49> Objective - Vital Signs/Intake and Output Vital Signs (last 24 hours): Temp Pulse Resp BP Pulse Ox 98.8 F 88 20 127/79 100 03/07/17 07:43 03/07/17 07:43 03/07/17 07:43 03/07/17 07:43 03/07/17 07:43 Intake and Output: 03/07/17 03/07/17 06:59 18:59 Intake Total 1760 Output Total 1250 500 Balance 510 -500 - Medications Medications: Current Medications Aspirin (Aspirin Chewable) 81 mg PEG DAILY [facility] Last Admin: 03/07/17 09:38 Dose: 81 mg Bethanechol Chloride (Urecholine) 50 mg PEG TID [facility] Last Admin: 03/07/17 14:25 Dose: 50 mg Bisacodyl (Dulcolax) 5 mg PO Q72H PRN PRN Reason: Constipation Carvedilol (Coreg) 3.125 mg PEG BID [facility] Last Admin: 03/07/17 09:38 Dose: 3.125 mg Clopidogrel Bisulfate (Plavix) 75 mg PEG DAILY [facility] Last Admin: 03/07/17 09:38 Dose: 75 mg Emollient Ointment (Vaseline Oint) 5 gm TOP BID PRN PRN Reason: Dry skin Enoxaparin Sodium (Lovenox) 40 mg SC DAILY [facility] Last Admin: 03/07/17 09:39 Dose: 40 mg Famotidine (Pepcid) 20 mg PEG BID [facility] Last Admin: 03/07/17 09:38 Dose: 20 mg Finasteride (Proscar) 5 mg PEG DAILY [facility] Last Admin: 03/07/17 09:39 Dose: 5 mg Levetiracetam (Keppra) 500 mg PEG BID [facility] Last Admin: 03/07/17 09:39 Dose: 500 mg Tamsulosin HCl (Flomax) 0.4 mg PEG DAILY [facility] Last Admin: 03/07/17 09:38 Dose: 0.4 mg - Labs Labs: 03/02/17 06:03 03/02/17 06:03 PT 10.6 SECONDS (9.7-12.2) 11/24/15 14:10 INR 1.0 11/24/15 14:10 APTT 25 SECONDS (21-34) 11/24/15 14:10 Attending/Attestation - Attestation I have personally seen and examined this patient.: Yes I have fully participated in the care of the patient.: Yes I have reviewed all pertinent clinical information, including history, physical exam and plan: Yes Notes (Text): 03/07/17 14:48 Patient was seen and examined at bedside There is no change in clinical condition Continue current management Discussed with the nursing staff. I agree with the above history and physical and assessment/plan by the resident.
[2017-03-07] MEDS: levETIRAcetam 100 mg/ml (5ml) Oral Syringe PEG SCH ×2 (09:39→17:31)
[2017-03-07] MEDS: Enoxaparin 40 mg Syringe SC SCH (09:39)
--- NOTE | 2017-03-07 21:04 | CP.PCM.PN ---
<Mee Luciano - Last Filed: 03/08/17 00:10> Subjective - Date & Time of Evaluation Date of Evaluation: 03/08/17 Time of Evaluation: 00:05 - Subjective Subjective: Patient seen and examined at bedside. In no acute distress. Per nursing, no events overnight. Unable to obtain history due to clinical state secondary to anoxic brain injury. Objective - Vital Signs/Intake and Output Vital Signs (last 24 hours): Temp Pulse Resp BP Pulse Ox 98.2 F 85 20 101/71 99 03/07/17 16:00 03/07/17 16:00 03/07/17 16:00 03/07/17 16:00 03/07/17 16:00 Intake and Output: 03/07/17 03/08/17 18:59 06:59 Intake Total 880 Output Total 500 Balance 380 - Medications Medications: Current Medications Aspirin (Aspirin Chewable) 81 mg PEG DAILY [facility] Last Admin: 03/07/17 09:38 Dose: 81 mg Bethanechol Chloride (Urecholine) 50 mg PEG TID [facility] Last Admin: 03/07/17 17:31 Dose: 50 mg Bisacodyl (Dulcolax) 5 mg PO Q72H PRN PRN Reason: Constipation Carvedilol (Coreg) 3.125 mg PEG BID [facility] Last Admin: 03/07/17 17:30 Dose: 3.125 mg Clopidogrel Bisulfate (Plavix) 75 mg PEG DAILY [facility] Last Admin: 03/07/17 09:38 Dose: 75 mg Emollient Ointment (Vaseline Oint) 5 gm TOP BID PRN PRN Reason: Dry skin Enoxaparin Sodium (Lovenox) 40 mg SC DAILY [facility] Last Admin: 03/07/17 09:39 Dose: 40 mg Famotidine (Pepcid) 20 mg PEG BID [facility] Last Admin: 03/07/17 17:31 Dose: 20 mg Finasteride (Proscar) 5 mg PEG DAILY [facility] Last Admin: 03/07/17 09:39 Dose: 5 mg Levetiracetam (Keppra) 500 mg PEG BID [facility] Last Admin: 03/07/17 17:31 Dose: 500 mg Tamsulosin HCl (Flomax) 0.4 mg PEG DAILY [facility] Last Admin: 03/07/17 09:38 Dose: 0.4 mg - Labs Labs: 03/02/17 06:03 03/02/17 06:03 PT 10.6 SECONDS (9.7-12.2) 11/24/15 14:10 INR 1.0 11/24/15 14:10 APTT 25 SECONDS (21-34) 11/24/15 14:10 - Constitutional Appears: Non-toxic, No Acute Distress - Head Exam Head Exam: ATRAUMATIC, NORMAL INSPECTION - Eye Exam Eye Exam: PERRL - ENT Exam ENT Exam: Mucous Membranes Moist - Neck Exam Additional comments: trach in place , no blood clots seen - Respiratory Exam Respiratory Exam: Clear to Ausculation Bilateral, NORMAL BREATHING PATTERN - Cardiovascular Exam Cardiovascular Exam: +S1, +S2. absent: Tachycardia - GI/Abdominal Exam GI & Abdominal Exam: Soft, Normal Bowel Sounds. absent: Tenderness Additional comments: PEG site clean, no surrounding erythema or signs of infection - Exam Additional comments: condom catheter in place - Extremities Exam Additional comments: Prevalon boots and SCDs in place - Neurological Exam Neurological Exam: Awake - Psychiatric Exam Psychiatric exam: Flat Affect Assessment and Plan - Assessment and Plan (Free Text) Assessment: 1. Anoxic brain injury s/p cardiac arrest in 05/2015 no acute changes Awake, not alert, not sedated continue current management Stable 2. Constipation 03/08: continue to monitor for bowel movements 03/05: Per nursing, patient having daily bowel movements 03/04: Nurse notes patient had bowel movement. 03/02 Will follow up with nurse regarding bowel movements as patient's abdomen is slightly distended and firm. Had BM on 03/01 Nursing to record bowel movements Dulcolax 5mg PO Q72 hours prn constipation/no bowel movement 3. Blood at trach site resolved Will talk to respiratory/surg about changing the trach if needed 02/11 blood at tracheostomy site suctioned, no blood noted deeper than opening 4. Urinary Retention 02/17 Bladder scan <100 cc Flomax 0.4mg PEG daily Proscar 5mg PEG daily continue Bethanecol 50mg PEG TID- started after persistent retention and found to be effective. monitor I's and O's check bladder scan for residual urine three times weekly 02/04: bladder scan today, 50cc 01/29: condom cath in place 01/28: condom catheter displaced, so difficult to measure accurate output, but patient not retaining urine 01/27: yesterday was straight cath'd with 60cc clear cherie urine. bladder scan done twice with minimal residual urine seen. 01/18: 50 cc residual 5. Sacral Ulcers 03/08: continue wound management Small area stage II in upper gluteal cleft- pink base Stage II ulcer present on sacrum Continue frequent turning, protective ointment and skin checks. 01/07- wound care saw patient, air mattress adjusted and protective ointment applied to sacrum Continue wound care 6. Respiratory failure trach collar in place - normal resp pattern, respiratory suctioned pt, improved 02/07: instructed nursing to give guanifesin for thickened secretions 01/12- starting mucinex for secretions 7. CAD (coronary artery disease) s/p cardiac stents on 06/13/15 ASA 81mg via PEG daily Coreg 3.125mg PEG BID Plavix 75mg PO daily 8. Seizures Keppra 500mg PEG BID for seizure prophylaxis Monitor 9. Lower extremity edema Stat dose of Lasix 20 mg via PEG given Lasix via PEG as needed. Improving Monitor 10. PEG tube dysfunction resolved IR placed new PEG 01/06, functioning appropriately Cont tube feeding - Isosource 1.5 @ 60 ml/hour Weights weekly 11. UTI resolved CBI discontinued 01/08, baker catheter removed, Condom catheter- voiding yellow/ slightly cloudy urine Monitor 12/30- Triple lumen Baker in place for irrigation, added neosporin to CBI Urine Culture 12/03/16 - Positive Kleb pneumo, sensitive to cipro - resolved. Off antibiotics now 12. Prophylactic measure Pepcid 20 mg PEG BID Lovenox 40mg SC daily SCDs and offloading boots continue to turn and reposition q2h Continue to monitor medication administrations and clinical presentation weekly labs- last drawn 02/09/17 Per dietary will continue tube feeds at the same rate due to nutritional needs <Donnell Ying - Last Filed: 03/08/17 12:09> Objective - Vital Signs/Intake and Output Vital Signs (last 24 hours): Temp Pulse Resp BP Pulse Ox 98.3 F 75 20 111/74 100 03/08/17 07:25 03/08/17 07:25 03/08/17 07:25 03/08/17 07:25 03/08/17 07:25 Intake and Output: 03/08/17 03/08/17 06:59 18:59 Intake Total 1760 Output Total 500 Balance 1260 - Medications Medications: Current Medications Aspirin (Aspirin Chewable) 81 mg PEG DAILY [facility] Last Admin: 03/08/17 09:42 Dose: 81 mg Bethanechol Chloride (Urecholine) 50 mg PEG TID [facility] Last Admin: 03/08/17 09:43 Dose: 50 mg Bisacodyl (Dulcolax) 5 mg PO Q72H PRN PRN Reason: Constipation Carvedilol (Coreg) 3.125 mg PEG BID [facility] Last Admin: 03/08/17 09:42 Dose: 3.125 mg Clopidogrel Bisulfate (Plavix) 75 mg PEG DAILY [facility] Last Admin: 03/08/17 09:42 Dose: 75 mg Emollient Ointment (Vaseline Oint) 5 gm TOP BID PRN PRN Reason: Dry skin Enoxaparin Sodium (Lovenox) 40 mg SC DAILY [facility] Last Admin: 03/08/17 09:43 Dose: 40 mg Famotidine (Pepcid) 20 mg PEG BID [facility] Last Admin: 03/08/17 09:42 Dose: 20 mg Finasteride (Proscar) 5 mg PEG DAILY [facility] Last Admin: 03/08/17 09:43 Dose: 5 mg Levetiracetam (Keppra) 500 mg PEG BID [facility] Last Admin: 03/08/17 09:42 Dose: 500 mg Tamsulosin HCl (Flomax) 0.4 mg PEG DAILY [facility] Last Admin: 03/08/17 09:42 Dose: 0.4 mg - Labs Labs: 03/02/17 06:03 03/02/17 06:03 PT 10.6 SECONDS (9.7-12.2) 11/24/15 14:10 INR 1.0 11/24/15 14:10 APTT 25 SECONDS (21-34) 11/24/15 14:10 Attending/Attestation - Attestation I have personally seen and examined this patient.: Yes I have fully participated in the care of the patient.: Yes I have reviewed all pertinent clinical information, including history, physical exam and plan: Yes Notes (Text): 03/08/17 12:06 Patient was seen and examined at bedside Status post cardiac arrest with the anoxic encephalopathy No change in clinical condition Continue local care of tracheostomy and PEG site No signs of infection Decubitus ulcer has healed Continue to turn and position every 2 hours I agree with above physical exam and assessment/plan as stated above by he resident.
[2017-03-08] MEDS: levETIRAcetam 100 mg/ml (5ml) Oral Syringe PEG SCH ×2 (09:42→17:35)
[2017-03-08] MEDS: Enoxaparin 40 mg Syringe SC SCH (09:43)
[2017-03-09] MEDS: levETIRAcetam 100 mg/ml (5ml) Oral Syringe PEG SCH ×2 (10:41→18:01)
[2017-03-09] MEDS: Enoxaparin 40 mg Syringe SC SCH (10:43)
--- NOTE | 2017-03-09 13:13 | CP.PCM.PN ---
<Mee Luciano - Last Filed: 03/09/17 13:09> Subjective - Date & Time of Evaluation Date of Evaluation: 03/09/17 Time of Evaluation: 13:09 - Subjective Subjective: Patient seen and examined at bedside. In no acute distress. Per nursing, no events overnight. Unable to obtain history due to clinical state secondary to anoxic brain injury. Objective - Vital Signs/Intake and Output Vital Signs (last 24 hours): Temp Pulse Resp BP Pulse Ox 98.7 F 91 H 20 127/82 98 03/09/17 08:00 03/09/17 08:00 03/09/17 08:00 03/09/17 10:42 03/09/17 08:00 Intake and Output: 03/09/17 03/09/17 06:59 18:59 Intake Total 1760 Output Total 950 Balance 810 - Medications Medications: Current Medications Aspirin (Aspirin Chewable) 81 mg PEG DAILY [facility] Last Admin: 03/09/17 10:43 Dose: 81 mg Bethanechol Chloride (Urecholine) 50 mg PEG TID [facility] Last Admin: 03/09/17 10:46 Dose: 50 mg Bisacodyl (Dulcolax) 5 mg PO Q72H PRN PRN Reason: Constipation Carvedilol (Coreg) 3.125 mg PEG BID [facility] Last Admin: 03/09/17 10:43 Dose: 3.125 mg Clopidogrel Bisulfate (Plavix) 75 mg PEG DAILY [facility] Last Admin: 03/09/17 10:43 Dose: 75 mg Emollient Ointment (Vaseline Oint) 5 gm TOP BID PRN PRN Reason: Dry skin Enoxaparin Sodium (Lovenox) 40 mg SC DAILY [facility] Last Admin: 03/09/17 10:43 Dose: 40 mg Famotidine (Pepcid) 20 mg PEG BID [facility] Last Admin: 03/09/17 10:42 Dose: 20 mg Finasteride (Proscar) 5 mg PEG DAILY [facility] Last Admin: 03/09/17 10:46 Dose: 5 mg Levetiracetam (Keppra) 500 mg PEG BID [facility] Last Admin: 03/09/17 10:41 Dose: 500 mg Tamsulosin HCl (Flomax) 0.4 mg PEG DAILY [facility] Last Admin: 03/09/17 10:47 Dose: 0.4 mg - Labs Labs: 03/02/17 06:03 03/02/17 06:03 PT 10.6 SECONDS (9.7-12.2) 11/24/15 14:10 INR 1.0 11/24/15 14:10 APTT 25 SECONDS (21-34) 11/24/15 14:10 - Constitutional Appears: Non-toxic, No Acute Distress - Head Exam Head Exam: ATRAUMATIC, NORMAL INSPECTION, NORMOCEPHALIC - Eye Exam Eye Exam: PERRL - Neck Exam Additional comments: trach site - blood clot seen, nurse aware - Respiratory Exam Respiratory Exam: Clear to Ausculation Bilateral, NORMAL BREATHING PATTERN - Cardiovascular Exam Cardiovascular Exam: +S1, +S2 - GI/Abdominal Exam GI & Abdominal Exam: Distended, Firm, Normal Bowel Sounds Additional comments: PEG site in place, no surrounding erythema - Extremities Exam Additional comments: prevalon boots and SCD in place - Neurological Exam Neurological Exam: Awake - Psychiatric Exam Psychiatric exam: Flat Affect - Skin Additional comments: healing sacral decubitus ulcer Assessment and Plan - Assessment and Plan (Free Text) Assessment: 1. Anoxic brain injury s/p cardiac arrest in 05/2015 no acute changes Awake, not alert, not sedated continue current management Stable 2. Constipation 03/09: Distended and firm abdomen. No bowel movement yesterday. Lactulose given via PEG once 03/08: continue to monitor for bowel movements 03/05: Per nursing, patient having daily bowel movements 03/04: Nurse notes patient had bowel movement. 03/02 Will follow up with nurse regarding bowel movements as patient's abdomen is slightly distended and firm. Had BM on 03/01 Nursing to record bowel movements Dulcolax 5mg PO Q72 hours prn constipation/no bowel movement 3. Blood at trach site 03/09: Blood present today at trach site. Nursing instructed to suction gently. Will monitor. Will talk to respiratory/surg about changing the trach if needed 02/11 blood at tracheostomy site suctioned, no blood noted deeper than opening 4. Urinary Retention 02/17 Bladder scan <100 cc Flomax 0.4mg PEG daily Proscar 5mg PEG daily continue Bethanecol 50mg PEG TID- started after persistent retention and found to be effective. monitor I's and O's check bladder scan for residual urine three times weekly 02/04: bladder scan today, 50cc 01/29: condom cath in place 01/28: condom catheter displaced, so difficult to measure accurate output, but patient not retaining urine 01/27: yesterday was straight cath'd with 60cc clear cherie urine. bladder scan done twice with minimal residual urine seen. 01/18: 50 cc residual 5. Sacral Ulcers 03/08: continue wound management Small area stage II in upper gluteal cleft- pink base Stage II ulcer present on sacrum Continue frequent turning, protective ointment and skin checks. 01/07- wound care saw patient, air mattress adjusted and protective ointment applied to sacrum Continue wound care 6. Respiratory failure trach collar in place - normal resp pattern, respiratory suctioned pt, improved 02/07: instructed nursing to give guanifesin for thickened secretions 01/12- starting mucinex for secretions 7. CAD (coronary artery disease) s/p cardiac stents on 06/13/15 ASA 81mg via PEG daily Coreg 3.125mg PEG BID Plavix 75mg PO daily 8. Seizures Keppra 500mg PEG BID for seizure prophylaxis Monitor 9. Lower extremity edema Stat dose of Lasix 20 mg via PEG given Lasix via PEG as needed. Improving Monitor 10. PEG tube dysfunction resolved IR placed new PEG 01/06, functioning appropriately Cont tube feeding - Isosource 1.5 @ 60 ml/hour Weights weekly 11. UTI resolved CBI discontinued 01/08, baker catheter removed, Condom catheter- voiding yellow/ slightly cloudy urine Monitor 12/30- Triple lumen Baker in place for irrigation, added neosporin to CBI Urine Culture 12/03/16 - Positive Kleb pneumo, sensitive to cipro - resolved. Off antibiotics now 12. Prophylactic measure Pepcid 20 mg PEG BID Lovenox 40mg SC daily SCDs and offloading boots continue to turn and reposition q2h Continue to monitor medication administrations and clinical presentation weekly labs- last drawn 02/09/17 Per dietary will continue tube feeds at the same rate due to nutritional needs <Donavan Hallman - Last Filed: 03/25/17 12:17> Objective - Vital Signs/Intake and Output Vital Signs (last 24 hours): Temp Pulse Resp BP Pulse Ox 98.7 F 86 20 115/77 98 03/25/17 08:04 03/25/17 08:04 03/25/17 08:04 03/25/17 08:04 03/25/17 08:04 Intake and Output: 03/25/17 03/25/17 06:59 18:59 Intake Total 1610 Output Total 400 Balance 1210 - Medications Medications: Current Medications Aspirin (Aspirin Chewable) 81 mg PEG DAILY [facility] Last Admin: 03/25/17 10:10 Dose: 81 mg Bethanechol Chloride (Urecholine) 50 mg PEG TID [facility] Last Admin: 03/24/17 18:05 Dose: 50 mg Bisacodyl (Dulcolax) 5 mg PO Q72H PRN PRN Reason: Constipation Last Admin: 03/20/17 10:57 Dose: 5 mg Carvedilol (Coreg) 3.125 mg PEG BID [facility] Last Admin: 03/25/17 10:11 Dose: 3.125 mg Clopidogrel Bisulfate (Plavix) 75 mg PEG DAILY [facility] Last Admin: 03/25/17 10:11 Dose: 75 mg Emollient Ointment (Vaseline Oint) 5 gm TOP BID PRN PRN Reason: Dry skin Last Admin: 03/20/17 13:41 Dose: 5 gm Enoxaparin Sodium (Lovenox) 40 mg SC DAILY [facility] Last Admin: 03/25/17 10:10 Dose: 40 mg Famotidine (Pepcid) 20 mg PEG BID [facility] Last Admin: 03/25/17 10:10 Dose: 20 mg Finasteride (Proscar) 5 mg PEG DAILY [facility] Last Admin: 03/25/17 10:11 Dose: 5 mg Meropenem 1 gm/ Sodium (Chloride) 100 mls @ 200 mls/hr IVPB Q8H [facility] Last Admin: 03/25/17 10:11 Dose: 200 mls/hr Levetiracetam (Keppra) 500 mg PEG BID [facility] Last Admin: 03/25/17 12:12 Dose: 500 mg Tamsulosin HCl (Flomax) 0.4 mg PEG DAILY [facility] Last Admin: 03/25/17 10:10 Dose: 0.4 mg - Labs Labs: 03/16/17 11:22 03/16/17 11:22 PT 10.6 SECONDS (9.7-12.2) 11/24/15 14:10 INR 1.0 11/24/15 14:10 APTT 25 SECONDS (21-34) 11/24/15 14:10 Attending/Attestation - Attestation I have personally seen and examined this patient.: Yes I have fully participated in the care of the patient.: Yes I have reviewed all pertinent clinical information, including history, physical exam and plan: Yes Notes (Text): Patient seen and examined with the resident. Agree with the resident's evaluation, assessment and plan. Anoxic brain injury
[2017-03-09 14:45] LABS: BASO % 0.4 % (0.0-2.0); EOS # 0.4 K/uL (0.0-0.7); EOS % 4.2 % (0.0-4.0); HEMOGLOBIN 12.4 g/dL (12.0-18.0); LYMPH # 2.6 K/uL (1.0-4.3); LYMPH % 28.3 % (20.0-40.0); MEAN CELL VOLUME 88.5 fL (80.0-94.0); MEAN CORPUSCULAR HEMOGLOBIN 29.1 pg (27.0-31.0); MEAN CORPUSCULAR HGB CONC 32.9 g/dL (33.0-37.0); MEAN PLATELET VOLUME 9.3 fL (7.2-11.7); MONO # 1.1 K/uL (0.0-0.8); MONO % 11.9 % (0.0-10.0); NEUT % 55.2 % (50.0-75.0); NRBC % 0.1 % (0.0-2.0); RBC 4.28 Mil/uL (4.40-5.90); RED CELL DISTRIBUTION WIDTH 15.5 % (11.5-14.5); WHITE BLOOD COUNT 9.1 K/uL (4.8-10.8)
[2017-03-09 15:08] LABS: ALBUMIN 3.6 g/dL (3.5-5.0)
[2017-03-09 15:11] LABS: ALB/GLOB RATIO 0.9 (1.0-2.1); AST/SGOT 28 U/L (17-59); BLOOD UREA NITROGEN 18 mg/dL (9-20); GFR NON-AFRICAN AMERICAN > 60
[2017-03-09 15:12] LABS: ALT/SGPT 64 U/L (21-72); CALCIUM 8.6 mg/dl (8.6-10.4)
[2017-03-10] MEDS: Petrolatum Oint Foilpak (5 gm) TOP PRN (09:27)
[2017-03-10] MEDS: Enoxaparin 40 mg Syringe SC SCH (09:28)
[2017-03-10] MEDS: levETIRAcetam 100 mg/ml (5ml) Oral Syringe PEG SCH ×2 (09:28→18:00)
--- NOTE | 2017-03-10 17:54 | CP.PCM.PN ---
<Mee Luciano - Last Filed: 03/10/17 17:50> Subjective - Date & Time of Evaluation Date of Evaluation: 03/10/17 Time of Evaluation: 17:50 - Subjective Subjective: Patient seen and examined at bedside. In no acute distress. Per nursing, no events overnight. Unable to obtain history due to clinical state secondary to anoxic brain injury. Blood clot per trach resolving. Objective - Vital Signs/Intake and Output Vital Signs (last 24 hours): Temp Pulse Resp BP Pulse Ox 98.7 F 100 H 20 124/79 97 03/10/17 16:00 03/10/17 16:31 03/10/17 16:00 03/10/17 16:00 03/10/17 16:00 Intake and Output: 03/10/17 03/10/17 06:59 18:59 Intake Total 1760 880 Output Total 1350 600 Balance 410 280 - Medications Medications: Current Medications Aspirin (Aspirin Chewable) 81 mg PEG DAILY [facility] Last Admin: 03/10/17 09:25 Dose: 81 mg Bethanechol Chloride (Urecholine) 50 mg PEG TID [facility] Last Admin: 03/10/17 13:41 Dose: 50 mg Bisacodyl (Dulcolax) 5 mg PO Q72H PRN PRN Reason: Constipation Carvedilol (Coreg) 3.125 mg PEG BID [facility] Last Admin: 03/10/17 09:25 Dose: 3.125 mg Clopidogrel Bisulfate (Plavix) 75 mg PEG DAILY [facility] Last Admin: 03/10/17 09:26 Dose: 75 mg Emollient Ointment (Vaseline Oint) 5 gm TOP BID PRN PRN Reason: Dry skin Last Admin: 03/10/17 09:27 Dose: 5 gm Enoxaparin Sodium (Lovenox) 40 mg SC DAILY [facility] Last Admin: 03/10/17 09:28 Dose: 40 mg Famotidine (Pepcid) 20 mg PEG BID [facility] Last Admin: 03/10/17 09:26 Dose: 20 mg Finasteride (Proscar) 5 mg PEG DAILY [facility] Last Admin: 03/10/17 09:26 Dose: 5 mg Levetiracetam (Keppra) 500 mg PEG BID [facility] Last Admin: 03/10/17 09:28 Dose: 500 mg Tamsulosin HCl (Flomax) 0.4 mg PEG DAILY [facility] Last Admin: 03/10/17 10:30 Dose: 0.4 mg - Labs Labs: 03/09/17 14:29 03/09/17 14:29 PT 10.6 SECONDS (9.7-12.2) 11/24/15 14:10 INR 1.0 11/24/15 14:10 APTT 25 SECONDS (21-34) 11/24/15 14:10 - Constitutional Appears: Non-toxic, No Acute Distress, Chronically Ill - Head Exam Head Exam: ATRAUMATIC, NORMAL INSPECTION, NORMOCEPHALIC - Eye Exam Eye Exam: PERRL - ENT Exam ENT Exam: Mucous Membranes Moist - Neck Exam Additional comments: trach in place - Respiratory Exam Respiratory Exam: Rhonchi, NORMAL BREATHING PATTERN - Cardiovascular Exam Cardiovascular Exam: +S1, +S2. absent: Tachycardia - GI/Abdominal Exam GI & Abdominal Exam: Soft, Normal Bowel Sounds. absent: Distended, Tenderness Additional comments: PEG in place - Extremities Exam Extremities Exam: Normal Inspection Additional comments: prevalon boots and SCDs in place - Psychiatric Exam Psychiatric exam: Flat Affect - Skin Additional comments: healing sacral ulcer Assessment and Plan - Assessment and Plan (Free Text) Assessment: 1. Anoxic brain injury s/p cardiac arrest in 05/2015 no acute changes Awake, not alert, not sedated continue current management Stable 2. Constipation 03/10: resolved 03/09: Distended and firm abdomen. No bowel movement yesterday. Lactulose given via PEG once 03/08: continue to monitor for bowel movements 03/05: Per nursing, patient having daily bowel movements 03/04: Nurse notes patient had bowel movement. 03/02 Will follow up with nurse regarding bowel movements as patient's abdomen is slightly distended and firm. Had BM on 03/01 Nursing to record bowel movements Dulcolax 5mg PO Q72 hours prn constipation/no bowel movement 3. Blood at trach site 03/10 instructed to resume aggressive suctioning as patient congested 03/09: Blood present today at trach site. Nursing instructed to suction gently. Will monitor. Will talk to respiratory/surg about changing the trach if needed 02/11 blood at tracheostomy site suctioned, no blood noted deeper than opening 4. Urinary Retention 02/17 Bladder scan <100 cc Flomax 0.4mg PEG daily Proscar 5mg PEG daily continue Bethanecol 50mg PEG TID- started after persistent retention and found to be effective. monitor I's and O's check bladder scan for residual urine three times weekly 02/04: bladder scan today, 50cc 01/29: condom cath in place 01/28: condom catheter displaced, so difficult to measure accurate output, but patient not retaining urine 01/27: yesterday was straight cath'd with 60cc clear cherie urine. bladder scan done twice with minimal residual urine seen. 01/18: 50 cc residual 5. Sacral Ulcers 03/08: continue wound management Small area stage II in upper gluteal cleft- pink base Stage II ulcer present on sacrum Continue frequent turning, protective ointment and skin checks. 01/07- wound care saw patient, air mattress adjusted and protective ointment applied to sacrum Continue wound care 6. Respiratory failure trach collar in place - normal resp pattern. Instructed nursing to resume aggressive suctioning. 02/07: instructed nursing to give guanifesin for thickened secretions 01/12- starting mucinex for secretions 7. CAD (coronary artery disease) s/p cardiac stents on 06/13/15 ASA 81mg via PEG daily Coreg 3.125mg PEG BID Plavix 75mg PO daily 8. Seizures Keppra 500mg PEG BID for seizure prophylaxis Monitor 9. Lower extremity edema Stat dose of Lasix 20 mg via PEG given Lasix via PEG as needed. Improving Monitor 10. PEG tube dysfunction resolved IR placed new PEG 01/06, functioning appropriately Cont tube feeding - Isosource 1.5 @ 60 ml/hour Weights weekly 11. UTI resolved CBI discontinued 01/08, baker catheter removed, Condom catheter- voiding yellow/ slightly cloudy urine Monitor 12/30- Triple lumen Baker in place for irrigation, added neosporin to CBI Urine Culture 12/03/16 - Positive Kleb pneumo, sensitive to cipro - resolved. Off antibiotics now 12. Prophylactic measure Pepcid 20 mg PEG BID Lovenox 40mg SC daily SCDs and offloading boots continue to turn and reposition q2h Continue to monitor medication administrations and clinical presentation weekly labs- last drawn 02/09/17 Per dietary will continue tube feeds at the same rate due to nutritional needs <Donavan Hallman - Last Filed: 03/25/17 12:17> Objective - Vital Signs/Intake and Output Vital Signs (last 24 hours): Temp Pulse Resp BP Pulse Ox 98.7 F 86 20 115/77 98 03/25/17 08:04 03/25/17 08:04 03/25/17 08:04 03/25/17 08:04 03/25/17 08:04 Intake and Output: 03/25/17 03/25/17 06:59 18:59 Intake Total 1610 Output Total 400 Balance 1210 - Medications Medications: Current Medications Aspirin (Aspirin Chewable) 81 mg PEG DAILY [facility] Last Admin: 03/25/17 10:10 Dose: 81 mg Bethanechol Chloride (Urecholine) 50 mg PEG TID [facility] Last Admin: 03/24/17 18:05 Dose: 50 mg Bisacodyl (Dulcolax) 5 mg PO Q72H PRN PRN Reason: Constipation Last Admin: 03/20/17 10:57 Dose: 5 mg Carvedilol (Coreg) 3.125 mg PEG BID [facility] Last Admin: 03/25/17 10:11 Dose: 3.125 mg Clopidogrel Bisulfate (Plavix) 75 mg PEG DAILY [facility] Last Admin: 03/25/17 10:11 Dose: 75 mg Emollient Ointment (Vaseline Oint) 5 gm TOP BID PRN PRN Reason: Dry skin Last Admin: 03/20/17 13:41 Dose: 5 gm Enoxaparin Sodium (Lovenox) 40 mg SC DAILY [facility] Last Admin: 03/25/17 10:10 Dose: 40 mg Famotidine (Pepcid) 20 mg PEG BID [facility] Last Admin: 03/25/17 10:10 Dose: 20 mg Finasteride (Proscar) 5 mg PEG DAILY [facility] Last Admin: 03/25/17 10:11 Dose: 5 mg Meropenem 1 gm/ Sodium (Chloride) 100 mls @ 200 mls/hr IVPB Q8H [facility] Last Admin: 03/25/17 10:11 Dose: 200 mls/hr Levetiracetam (Keppra) 500 mg PEG BID [facility] Last Admin: 03/25/17 12:12 Dose: 500 mg Tamsulosin HCl (Flomax) 0.4 mg PEG DAILY [facility] Last Admin: 03/25/17 10:10 Dose: 0.4 mg - Labs Labs: 03/16/17 11:22 03/16/17 11:22 PT 10.6 SECONDS (9.7-12.2) 11/24/15 14:10 INR 1.0 11/24/15 14:10 APTT 25 SECONDS (21-34) 11/24/15 14:10 Attending/Attestation - Attestation I have personally seen and examined this patient.: Yes I have fully participated in the care of the patient.: Yes I have reviewed all pertinent clinical information, including history, physical exam and plan: Yes Notes (Text): Patient seen and examined with the resident. Agree with the resident's evaluation, assessment and plan. Anoxic brain injury
--- NOTE | 2017-03-11 07:31 | CP.PCM.PN ---
<Mee Luciano - Last Filed: 03/11/17 13:11> Subjective - Date & Time of Evaluation Date of Evaluation: 03/11/17 Time of Evaluation: 07:30 - Subjective Subjective: Patient seen and examined at bedside. In no acute distress. Per nursing, no events overnight. Patient received aggressive suctioning by respiratory. No bleeding or blood clots noted. Patient appears mildly diaphoretic. Will monitor vitals. Unable to obtain history due to clinical state secondary to anoxic brain injury. Objective - Vital Signs/Intake and Output Vital Signs (last 24 hours): Temp Pulse Resp BP Pulse Ox 98.6 F 76 20 125/85 98 03/10/17 23:54 03/10/17 23:54 03/10/17 23:54 03/10/17 23:54 03/10/17 23:54 Intake and Output: 03/11/17 03/11/17 06:59 18:59 Intake Total 1760 Output Total 680 Balance 1080 - Medications Medications: Current Medications Aspirin (Aspirin Chewable) 81 mg PEG DAILY [facility] Last Admin: 03/10/17 09:25 Dose: 81 mg Bethanechol Chloride (Urecholine) 50 mg PEG TID [facility] Last Admin: 03/10/17 18:00 Dose: 50 mg Bisacodyl (Dulcolax) 5 mg PO Q72H PRN PRN Reason: Constipation Carvedilol (Coreg) 3.125 mg PEG BID [facility] Last Admin: 03/10/17 18:00 Dose: 3.125 mg Clopidogrel Bisulfate (Plavix) 75 mg PEG DAILY [facility] Last Admin: 03/10/17 09:26 Dose: 75 mg Emollient Ointment (Vaseline Oint) 5 gm TOP BID PRN PRN Reason: Dry skin Last Admin: 03/10/17 09:27 Dose: 5 gm Enoxaparin Sodium (Lovenox) 40 mg SC DAILY [facility] Last Admin: 03/10/17 09:28 Dose: 40 mg Famotidine (Pepcid) 20 mg PEG BID [facility] Last Admin: 03/10/17 18:00 Dose: 20 mg Finasteride (Proscar) 5 mg PEG DAILY [facility] Last Admin: 03/10/17 09:26 Dose: 5 mg Levetiracetam (Keppra) 500 mg PEG BID [facility] Last Admin: 03/10/17 18:00 Dose: 500 mg Tamsulosin HCl (Flomax) 0.4 mg PEG DAILY [facility] Last Admin: 03/10/17 10:30 Dose: 0.4 mg - Labs Labs: 03/09/17 14:29 03/09/17 14:29 PT 10.6 SECONDS (9.7-12.2) 11/24/15 14:10 INR 1.0 11/24/15 14:10 APTT 25 SECONDS (21-34) 11/24/15 14:10 - Constitutional Appears: Non-toxic, No Acute Distress - Head Exam Head Exam: ATRAUMATIC, NORMAL INSPECTION, NORMOCEPHALIC - Eye Exam Eye Exam: EOMI, Normal appearance - ENT Exam ENT Exam: Mucous Membranes Moist - Respiratory Exam Respiratory Exam: Rhonchi Additional comments: trach site in place, thick secretions present - Cardiovascular Exam Cardiovascular Exam: +S1, +S2. absent: Tachycardia - GI/Abdominal Exam GI & Abdominal Exam: Soft, Normal Bowel Sounds. absent: Tenderness - Extremities Exam Extremities Exam: Normal Inspection. absent: Pedal Edema, Tenderness Additional comments: prevalon boots in place - Psychiatric Exam Psychiatric exam: Flat Affect - Skin Additional comments: sacral ulcer healing Assessment and Plan - Assessment and Plan (Free Text) Assessment: 1. Anoxic brain injury s/p cardiac arrest in 05/2015 no acute changes Awake, not alert, not sedated continue current management Stable 2. Constipation 03/10: resolved 03/09: Distended and firm abdomen. No bowel movement yesterday. Lactulose given via PEG once 03/08: continue to monitor for bowel movements 03/05: Per nursing, patient having daily bowel movements 03/04: Nurse notes patient had bowel movement. 03/02 Will follow up with nurse regarding bowel movements as patient's abdomen is slightly distended and firm. Had BM on 03/01 Nursing to record bowel movements Dulcolax 5mg PO Q72 hours prn constipation/no bowel movement 3. Blood at trach site 03/11: Resolved 03/10 instructed to resume aggressive suctioning as patient congested 03/09: Blood present today at trach site. Nursing instructed to suction gently. Will monitor. Will talk to respiratory/surg about changing the trach if needed 02/11 blood at tracheostomy site suctioned, no blood noted deeper than opening 4. Urinary Retention 02/17 Bladder scan <100 cc Flomax 0.4mg PEG daily Proscar 5mg PEG daily continue Bethanecol 50mg PEG TID- started after persistent retention and found to be effective. monitor I's and O's check bladder scan for residual urine three times weekly 02/04: bladder scan today, 50cc 01/29: condom cath in place 01/28: condom catheter displaced, so difficult to measure accurate output, but patient not retaining urine 01/27: yesterday was straight cath'd with 60cc clear cherie urine. bladder scan done twice with minimal residual urine seen. 01/18: 50 cc residual 5. Sacral Ulcers 03/11: Foam donut support to be placed under sacral ulcer. 03/08: continue wound management Small area stage II in upper gluteal cleft- pink base Stage II ulcer present on sacrum Continue frequent turning, protective ointment and skin checks. 01/07- wound care saw patient, air mattress adjusted and protective ointment applied to sacrum Continue wound care 6. Respiratory failure 03/11: Continue aggressive suctioning. Monitor vitals. trach collar in place - normal resp pattern. Instructed nursing to resume aggressive suctioning. 02/07: instructed nursing to give guanifesin for thickened secretions 01/12- starting mucinex for secretions 7. CAD (coronary artery disease) s/p cardiac stents on 06/13/15 ASA 81mg via PEG daily Coreg 3.125mg PEG BID Plavix 75mg PO daily 8. Seizures Keppra 500mg PEG BID for seizure prophylaxis Monitor 9. Lower extremity edema Stat dose of Lasix 20 mg via PEG given Lasix via PEG as needed. Improving Monitor 10. PEG tube dysfunction resolved IR placed new PEG 01/06, functioning appropriately Cont tube feeding - Isosource 1.5 @ 60 ml/hour Weights weekly 11. UTI resolved CBI discontinued 01/08, baker catheter removed, Condom catheter- voiding yellow/ slightly cloudy urine Monitor 12/30- Triple lumen Baker in place for irrigation, added neosporin to CBI Urine Culture 12/03/16 - Positive Kleb pneumo, sensitive to cipro - resolved. Off antibiotics now 12. Prophylactic measure Pepcid 20 mg PEG BID Lovenox 40mg SC daily SCDs and offloading boots continue to turn and reposition q2h Continue to monitor medication administrations and clinical presentation weekly labs- last drawn 02/09/17 Per dietary will continue tube feeds at the same rate due to nutritional needs <Donavan Hallman - Last Filed: 03/25/17 12:19> Objective - Vital Signs/Intake and Output Vital Signs (last 24 hours): Temp Pulse Resp BP Pulse Ox 98.7 F 86 20 115/77 98 03/25/17 08:04 03/25/17 08:04 03/25/17 08:04 03/25/17 08:04 03/25/17 08:04 Intake and Output: 03/25/17 03/25/17 06:59 18:59 Intake Total 1610 Output Total 400 Balance 1210 - Medications Medications: Current Medications Aspirin (Aspirin Chewable) 81 mg PEG DAILY [facility] Last Admin: 03/25/17 10:10 Dose: 81 mg Bethanechol Chloride (Urecholine) 50 mg PEG TID [facility] Last Admin: 03/24/17 18:05 Dose: 50 mg Bisacodyl (Dulcolax) 5 mg PO Q72H PRN PRN Reason: Constipation Last Admin: 03/20/17 10:57 Dose: 5 mg Carvedilol (Coreg) 3.125 mg PEG BID [facility] Last Admin: 03/25/17 10:11 Dose: 3.125 mg Clopidogrel Bisulfate (Plavix) 75 mg PEG DAILY [facility] Last Admin: 03/25/17 10:11 Dose: 75 mg Emollient Ointment (Vaseline Oint) 5 gm TOP BID PRN PRN Reason: Dry skin Last Admin: 03/20/17 13:41 Dose: 5 gm Enoxaparin Sodium (Lovenox) 40 mg SC DAILY [facility] Last Admin: 03/25/17 10:10 Dose: 40 mg Famotidine (Pepcid) 20 mg PEG BID [facility] Last Admin: 03/25/17 10:10 Dose: 20 mg Finasteride (Proscar) 5 mg PEG DAILY [facility] Last Admin: 03/25/17 10:11 Dose: 5 mg Meropenem 1 gm/ Sodium (Chloride) 100 mls @ 200 mls/hr IVPB Q8H [facility] Last Admin: 03/25/17 10:11 Dose: 200 mls/hr Levetiracetam (Keppra) 500 mg PEG BID [facility] Last Admin: 03/25/17 12:12 Dose: 500 mg Tamsulosin HCl (Flomax) 0.4 mg PEG DAILY [facility] Last Admin: 03/25/17 10:10 Dose: 0.4 mg - Labs Labs: 03/16/17 11:22 03/16/17 11:22 PT 10.6 SECONDS (9.7-12.2) 11/24/15 14:10 INR 1.0 11/24/15 14:10 APTT 25 SECONDS (21-34) 11/24/15 14:10 Attending/Attestation - Attestation I have personally seen and examined this patient.: Yes I have fully participated in the care of the patient.: Yes I have reviewed all pertinent clinical information, including history, physical exam and plan: Yes Notes (Text): Patient seen and examined with the resident. Agree with the resident's evaluation, assessment and plan. Anoxic brain injury
[2017-03-11] MEDS: levETIRAcetam 100 mg/ml (5ml) Oral Syringe PEG SCH ×2 (09:56→21:48)
[2017-03-11] MEDS: Enoxaparin 40 mg Syringe SC SCH (09:58)
[2017-03-12] MEDS: Enoxaparin 40 mg Syringe SC SCH (11:26)
[2017-03-12] MEDS: levETIRAcetam 100 mg/ml (5ml) Oral Syringe PEG SCH ×2 (11:26→18:00)
--- NOTE | 2017-03-12 13:12 | CP.PCM.PN ---
<Mee Luciano - Last Filed: 03/12/17 13:09> Subjective - Date & Time of Evaluation Date of Evaluation: 03/12/17 Time of Evaluation: 13:09 - Subjective Subjective: Patient seen and examined at bedside. In no acute distress. Per nursing, no events overnight. Patient continues to receive aggressive suctioning. No bleeding or blood clots noted. Patient afebrile. Unable to obtain history due to clinical state secondary to anoxic brain injury. Objective - Vital Signs/Intake and Output Vital Signs (last 24 hours): Temp Pulse Resp BP Pulse Ox 98.4 F 70 20 115/77 100 03/12/17 07:16 03/12/17 07:16 03/12/17 07:16 03/12/17 07:16 03/12/17 07:16 Intake and Output: 03/12/17 03/12/17 06:59 18:59 Intake Total 1760 Output Total 850 Balance 910 - Medications Medications: Current Medications Aspirin (Aspirin Chewable) 81 mg PEG DAILY [facility] Last Admin: 03/12/17 11:26 Dose: 81 mg Bethanechol Chloride (Urecholine) 50 mg PEG TID [facility] Last Admin: 03/12/17 11:27 Dose: 50 mg Bisacodyl (Dulcolax) 5 mg PO Q72H PRN PRN Reason: Constipation Carvedilol (Coreg) 3.125 mg PEG BID [facility] Last Admin: 03/12/17 11:26 Dose: 3.125 mg Clopidogrel Bisulfate (Plavix) 75 mg PEG DAILY [facility] Last Admin: 03/12/17 11:27 Dose: 75 mg Emollient Ointment (Vaseline Oint) 5 gm TOP BID PRN PRN Reason: Dry skin Last Admin: 03/10/17 09:27 Dose: 5 gm Enoxaparin Sodium (Lovenox) 40 mg SC DAILY [facility] Last Admin: 03/12/17 11:26 Dose: 40 mg Famotidine (Pepcid) 20 mg PEG BID [facility] Last Admin: 03/12/17 11:26 Dose: 20 mg Finasteride (Proscar) 5 mg PEG DAILY [facility] Last Admin: 03/12/17 11:26 Dose: 5 mg Levetiracetam (Keppra) 500 mg PEG BID [facility] Last Admin: 03/12/17 11:26 Dose: 500 mg Tamsulosin HCl (Flomax) 0.4 mg PEG DAILY [facility] Last Admin: 03/12/17 11:26 Dose: 0.4 mg - Labs Labs: 03/09/17 14:29 03/09/17 14:29 PT 10.6 SECONDS (9.7-12.2) 11/24/15 14:10 INR 1.0 11/24/15 14:10 APTT 25 SECONDS (21-34) 11/24/15 14:10 - Constitutional Appears: Non-toxic, No Acute Distress - Head Exam Head Exam: ATRAUMATIC, NORMAL INSPECTION, NORMOCEPHALIC - Eye Exam Eye Exam: Normal appearance, PERRL - ENT Exam ENT Exam: Mucous Membranes Moist - Neck Exam Additional comments: trach in place, no blood clots present - Respiratory Exam Respiratory Exam: Rhonchi - Cardiovascular Exam Cardiovascular Exam: +S1, +S2. absent: Tachycardia - GI/Abdominal Exam GI & Abdominal Exam: Soft, Normal Bowel Sounds Additional comments: PEG in place - Extremities Exam Additional comments: prevalon boots and SCDs in place - Neurological Exam Neurological Exam: Alert, Awake - Psychiatric Exam Psychiatric exam: Flat Affect - Skin Additional comments: healing sacral ulcer Assessment and Plan - Assessment and Plan (Free Text) Assessment: 1. Anoxic brain injury s/p cardiac arrest in 05/2015 no acute changes Awake, not alert, not sedated continue current management Stable 2. Constipation 03/10: resolved 03/09: Distended and firm abdomen. No bowel movement yesterday. Lactulose given via PEG once 03/08: continue to monitor for bowel movements 03/05: Per nursing, patient having daily bowel movements 03/04: Nurse notes patient had bowel movement. 03/02 Will follow up with nurse regarding bowel movements as patient's abdomen is slightly distended and firm. Had BM on 03/01 Nursing to record bowel movements Dulcolax 5mg PO Q72 hours prn constipation/no bowel movement 3. Blood at trach site 03/11: Resolved 03/10 instructed to resume aggressive suctioning as patient congested 03/09: Blood present today at trach site. Nursing instructed to suction gently. Will monitor. Will talk to respiratory/surg about changing the trach if needed 02/11 blood at tracheostomy site suctioned, no blood noted deeper than opening 4. Urinary Retention 02/17 Bladder scan <100 cc Flomax 0.4mg PEG daily Proscar 5mg PEG daily continue Bethanecol 50mg PEG TID- started after persistent retention and found to be effective. monitor I's and O's check bladder scan for residual urine three times weekly 02/04: bladder scan today, 50cc 01/29: condom cath in place 01/28: condom catheter displaced, so difficult to measure accurate output, but patient not retaining urine 01/27: yesterday was straight cath'd with 60cc clear cherie urine. bladder scan done twice with minimal residual urine seen. 01/18: 50 cc residual 5. Sacral Ulcers 03/12: Continue foam donut support to sacral ulcer. 03/08: continue wound management Small area stage II in upper gluteal cleft- pink base Stage II ulcer present on sacrum Continue frequent turning, protective ointment and skin checks. 01/07- wound care saw patient, air mattress adjusted and protective ointment applied to sacrum Continue wound care 6. Respiratory failure 03/12: Continue aggressive suctioning. Monitor vitals. trach collar in place - normal resp pattern. Instructed nursing to resume aggressive suctioning. 02/07: instructed nursing to give guanifesin for thickened secretions 01/12- starting mucinex for secretions 7. CAD (coronary artery disease) s/p cardiac stents on 06/13/15 ASA 81mg via PEG daily Coreg 3.125mg PEG BID Plavix 75mg PO daily 8. Seizures Keppra 500mg PEG BID for seizure prophylaxis Monitor 9. Lower extremity edema Stat dose of Lasix 20 mg via PEG given Lasix via PEG as needed. Improving Monitor 10. PEG tube dysfunction resolved IR placed new PEG 01/06, functioning appropriately Cont tube feeding - Isosource 1.5 @ 60 ml/hour Weights weekly 11. UTI resolved CBI discontinued 01/08, baker catheter removed, Condom catheter- voiding yellow/ slightly cloudy urine Monitor 12/30- Triple lumen Baker in place for irrigation, added neosporin to CBI Urine Culture 12/03/16 - Positive Kleb pneumo, sensitive to cipro - resolved. Off antibiotics now 12. Prophylactic measure Pepcid 20 mg PEG BID Lovenox 40mg SC daily SCDs and offloading boots continue to turn and reposition q2h Continue to monitor medication administrations and clinical presentation weekly labs- last drawn 02/09/17 Per dietary will continue tube feeds at the same rate due to nutritional needs <Donavan Hallman - Last Filed: 03/25/17 12:20> Objective - Vital Signs/Intake and Output Vital Signs (last 24 hours): Temp Pulse Resp BP Pulse Ox 98.7 F 86 20 115/77 98 03/25/17 08:04 03/25/17 08:04 03/25/17 08:04 03/25/17 08:04 03/25/17 08:04 Intake and Output: 03/25/17 03/25/17 06:59 18:59 Intake Total 1610 Output Total 400 Balance 1210 - Medications Medications: Current Medications Aspirin (Aspirin Chewable) 81 mg PEG DAILY [facility] Last Admin: 03/25/17 10:10 Dose: 81 mg Bethanechol Chloride (Urecholine) 50 mg PEG TID [facility] Last Admin: 03/24/17 18:05 Dose: 50 mg Bisacodyl (Dulcolax) 5 mg PO Q72H PRN PRN Reason: Constipation Last Admin: 03/20/17 10:57 Dose: 5 mg Carvedilol (Coreg) 3.125 mg PEG BID [facility] Last Admin: 03/25/17 10:11 Dose: 3.125 mg Clopidogrel Bisulfate (Plavix) 75 mg PEG DAILY [facility] Last Admin: 03/25/17 10:11 Dose: 75 mg Emollient Ointment (Vaseline Oint) 5 gm TOP BID PRN PRN Reason: Dry skin Last Admin: 03/20/17 13:41 Dose: 5 gm Enoxaparin Sodium (Lovenox) 40 mg SC DAILY [facility] Last Admin: 03/25/17 10:10 Dose: 40 mg Famotidine (Pepcid) 20 mg PEG BID [facility] Last Admin: 03/25/17 10:10 Dose: 20 mg Finasteride (Proscar) 5 mg PEG DAILY [facility] Last Admin: 03/25/17 10:11 Dose: 5 mg Meropenem 1 gm/ Sodium (Chloride) 100 mls @ 200 mls/hr IVPB Q8H [facility] Last Admin: 03/25/17 10:11 Dose: 200 mls/hr Levetiracetam (Keppra) 500 mg PEG BID [facility] Last Admin: 03/25/17 12:12 Dose: 500 mg Tamsulosin HCl (Flomax) 0.4 mg PEG DAILY [facility] Last Admin: 03/25/17 10:10 Dose: 0.4 mg - Labs Labs: 03/16/17 11:22 03/16/17 11:22 PT 10.6 SECONDS (9.7-12.2) 11/24/15 14:10 INR 1.0 11/24/15 14:10 APTT 25 SECONDS (21-34) 11/24/15 14:10 Attending/Attestation - Attestation I have personally seen and examined this patient.: Yes I have fully participated in the care of the patient.: Yes I have reviewed all pertinent clinical information, including history, physical exam and plan: Yes Notes (Text): Patient seen and examined with the resident. Agree with the resident's evaluation, assessment and plan. Anoxic brain injury
--- NOTE | 2017-03-13 07:44 | CP.PCM.PN ---
<Mee Luciano - Last Filed: 03/13/17 14:05> Subjective - Date & Time of Evaluation Date of Evaluation: 03/13/17 Time of Evaluation: 07:44 - Subjective Subjective: Patient seen and examined at bedside. In no acute distress. Per nursing, no events overnight. Patient continues to receive aggressive suctioning. No bleeding or blood clots noted. Patient afebrile. Unable to obtain history due to clinical state secondary to anoxic brain injury. Objective - Vital Signs/Intake and Output Vital Signs (last 24 hours): Temp Pulse Resp BP Pulse Ox 98 F 64 20 109/74 98 03/12/17 23:46 03/12/17 23:46 03/12/17 23:46 03/12/17 23:46 03/12/17 23:46 Intake and Output: 03/13/17 03/13/17 06:59 18:59 Intake Total 1760 Output Total 750 Balance 1010 - Medications Medications: Current Medications Aspirin (Aspirin Chewable) 81 mg PEG DAILY [facility] Last Admin: 03/12/17 11:26 Dose: 81 mg Bethanechol Chloride (Urecholine) 50 mg PEG TID [facility] Last Admin: 03/12/17 18:00 Dose: 50 mg Bisacodyl (Dulcolax) 5 mg PO Q72H PRN PRN Reason: Constipation Carvedilol (Coreg) 3.125 mg PEG BID [facility] Last Admin: 03/12/17 18:00 Dose: 3.125 mg Clopidogrel Bisulfate (Plavix) 75 mg PEG DAILY [facility] Last Admin: 03/12/17 11:27 Dose: 75 mg Emollient Ointment (Vaseline Oint) 5 gm TOP BID PRN PRN Reason: Dry skin Last Admin: 03/10/17 09:27 Dose: 5 gm Enoxaparin Sodium (Lovenox) 40 mg SC DAILY [facility] Last Admin: 03/12/17 11:26 Dose: 40 mg Famotidine (Pepcid) 20 mg PEG BID [facility] Last Admin: 03/12/17 18:00 Dose: 20 mg Finasteride (Proscar) 5 mg PEG DAILY [facility] Last Admin: 03/12/17 11:26 Dose: 5 mg Levetiracetam (Keppra) 500 mg PEG BID [facility] Last Admin: 03/12/17 18:00 Dose: 500 mg Tamsulosin HCl (Flomax) 0.4 mg PEG DAILY [facility] Last Admin: 03/12/17 11:26 Dose: 0.4 mg - Labs Labs: 03/09/17 14:29 03/09/17 14:29 PT 10.6 SECONDS (9.7-12.2) 11/24/15 14:10 INR 1.0 11/24/15 14:10 APTT 25 SECONDS (21-34) 11/24/15 14:10 - Constitutional Appears: Non-toxic, No Acute Distress, Chronically Ill - Head Exam Head Exam: ATRAUMATIC, NORMAL INSPECTION, NORMOCEPHALIC - Eye Exam Eye Exam: Normal appearance Pupil Exam: PERRL - ENT Exam ENT Exam: Mucous Membranes Moist - Neck Exam Additional comments: trach in place , thick secretions noted - Respiratory Exam Respiratory Exam: Clear to Ausculation Bilateral, NORMAL BREATHING PATTERN - Cardiovascular Exam Cardiovascular Exam: +S1, +S2. absent: Tachycardia - GI/Abdominal Exam GI & Abdominal Exam: Soft, Normal Bowel Sounds Additional comments: PEG tube in place - Exam Additional comments: condom catheter in place - Extremities Exam Additional comments: Prevalon boots and SCDs in place - Neurological Exam Neurological Exam: Awake - Psychiatric Exam Psychiatric exam: Flat Affect - Skin Additional comments: foam support for sacral ulcer in place Assessment and Plan - Assessment and Plan (Free Text) Assessment: 1. Anoxic brain injury s/p cardiac arrest in 05/2015 no acute changes Awake, not alert, not sedated continue current management Stable 2. Constipation 03/13: Continues to have normal bowel movements 03/10: resolved 03/09: Distended and firm abdomen. No bowel movement yesterday. Lactulose given via PEG once 03/08: continue to monitor for bowel movements 03/05: Per nursing, patient having daily bowel movements 03/04: Nurse notes patient had bowel movement. 03/02 Will follow up with nurse regarding bowel movements as patient's abdomen is slightly distended and firm. Had BM on 03/01 Nursing to record bowel movements Dulcolax 5mg PO Q72 hours prn constipation/no bowel movement 3. Blood at trach site 03/11: Resolved 03/10 instructed to resume aggressive suctioning as patient congested 03/09: Blood present today at trach site. Nursing instructed to suction gently. Will monitor. Will talk to respiratory/surg about changing the trach if needed 02/11 blood at tracheostomy site suctioned, no blood noted deeper than opening 4. Urinary Retention 02/17 Bladder scan <100 cc Flomax 0.4mg PEG daily Proscar 5mg PEG daily continue Bethanecol 50mg PEG TID- started after persistent retention and found to be effective. monitor I's and O's check bladder scan for residual urine three times weekly 02/04: bladder scan today, 50cc 01/29: condom cath in place 01/28: condom catheter displaced, so difficult to measure accurate output, but patient not retaining urine 01/27: yesterday was straight cath'd with 60cc clear cherie urine. bladder scan done twice with minimal residual urine seen. 01/18: 50 cc residual 5. Sacral Ulcers 03/13: Continue foam donut support to sacral ulcer. 03/08: continue wound management Small area stage II in upper gluteal cleft- pink base Stage II ulcer present on sacrum Continue frequent turning, protective ointment and skin checks. 01/07- wound care saw patient, air mattress adjusted and protective ointment applied to sacrum Continue wound care 6. Respiratory failure 03/13: Continue aggressive suctioning. Monitor vitals. Afebrile trach collar in place - normal resp pattern. Instructed nursing to resume aggressive suctioning. 02/07: instructed nursing to give guanifesin for thickened secretions 01/12- starting mucinex for secretions 7. CAD (coronary artery disease) s/p cardiac stents on 06/13/15 ASA 81mg via PEG daily Coreg 3.125mg PEG BID Plavix 75mg PO daily 8. Seizures Keppra 500mg PEG BID for seizure prophylaxis Monitor 9. Lower extremity edema Stat dose of Lasix 20 mg via PEG given Lasix via PEG as needed. Improving Monitor 10. PEG tube dysfunction resolved IR placed new PEG 01/06, functioning appropriately Cont tube feeding - Isosource 1.5 @ 60 ml/hour Weights weekly 11. UTI resolved CBI discontinued 01/08, baker catheter removed, Condom catheter- voiding yellow/ slightly cloudy urine Monitor 12/30- Triple lumen Baker in place for irrigation, added neosporin to CBI Urine Culture 12/03/16 - Positive Kleb pneumo, sensitive to cipro - resolved. Off antibiotics now 12. Prophylactic measure Pepcid 20 mg PEG BID Lovenox 40mg SC daily SCDs and offloading boots continue to turn and reposition q2h Continue to monitor medication administrations and clinical presentation weekly labs- last drawn 02/09/17 Per dietary will continue tube feeds at the same rate due to nutritional needs <Donnell Ying - Last Filed: 03/14/17 12:18> Objective - Vital Signs/Intake and Output Vital Signs (last 24 hours): Temp Pulse Resp BP Pulse Ox 97.7 F 97 H 18 142/89 97 03/14/17 08:00 03/14/17 08:00 03/14/17 08:00 03/14/17 08:00 03/14/17 08:00 Intake and Output: 03/14/17 03/14/17 06:59 18:59 Intake Total 1760 Output Total 600 Balance 1160 - Medications Medications: Current Medications Aspirin (Aspirin Chewable) 81 mg PEG DAILY [facility] Last Admin: 03/14/17 10:45 Dose: 81 mg Bethanechol Chloride (Urecholine) 50 mg PEG TID [facility] Last Admin: 03/14/17 10:47 Dose: 50 mg Bisacodyl (Dulcolax) 5 mg PO Q72H PRN PRN Reason: Constipation Carvedilol (Coreg) 3.125 mg PEG BID [facility] Last Admin: 03/14/17 10:46 Dose: 3.125 mg Clopidogrel Bisulfate (Plavix) 75 mg PEG DAILY [facility] Last Admin: 03/14/17 10:45 Dose: 75 mg Emollient Ointment (Vaseline Oint) 5 gm TOP BID PRN PRN Reason: Dry skin Last Admin: 03/10/17 09:27 Dose: 5 gm Enoxaparin Sodium (Lovenox) 40 mg SC DAILY [facility] Last Admin: 03/14/17 10:46 Dose: 40 mg Famotidine (Pepcid) 20 mg PEG BID [facility] Last Admin: 03/14/17 10:46 Dose: 20 mg Finasteride (Proscar) 5 mg PEG DAILY [facility] Last Admin: 03/14/17 10:46 Dose: 5 mg Levetiracetam (Keppra) 500 mg PEG BID [facility] Last Admin: 03/14/17 10:46 Dose: 500 mg Tamsulosin HCl (Flomax) 0.4 mg PEG DAILY [facility] Last Admin: 03/14/17 10:46 Dose: 0.4 mg - Labs Labs: 03/09/17 14:29 03/09/17 14:29 PT 10.6 SECONDS (9.7-12.2) 11/24/15 14:10 INR 1.0 11/24/15 14:10 APTT 25 SECONDS (21-34) 11/24/15 14:10 Attending/Attestation - Attestation I have personally seen and examined this patient.: Yes I have fully participated in the care of the patient.: Yes I have reviewed all pertinent clinical information, including history, physical exam and plan: Yes Notes (Text): 03/14/17 12:16 patient was seen and examined at bedside with the resident there is no change in clinical condition. Continue local care of the tracheostomy and the PEG site. Continue to turn and position every 2 hours. Offloading of the heels. I agree with the above history and physical and assessment/plan by the resident.
[2017-03-13] MEDS: Enoxaparin 40 mg Syringe SC SCH (10:13)
[2017-03-13] MEDS: levETIRAcetam 100 mg/ml (5ml) Oral Syringe PEG SCH ×2 (10:14→17:57)
--- NOTE | 2017-03-14 00:39 | CP.PCM.PN ---
<Farrah Doan - Last Filed: 03/14/17 00:43> Subjective - Date & Time of Evaluation Date of Evaluation: 03/14/17 Time of Evaluation: 00:35 - Subjective Subjective: Internal medicine progress note for Hospitalist service- Farrah Doan, PGY-1 Pt S & E at bedside. Per nursing - pt with increased wheezing, secretions that require aggressive/ frequent suctioning. Pt NAD. Unresponsive to verbal or tactile stimuli. Does not follow simple commands. Objective - Vital Signs/Intake and Output Vital Signs (last 24 hours): Temp Pulse Resp BP Pulse Ox 97.9 F 68 20 118/75 98 03/13/17 16:00 03/13/17 16:06 03/13/17 16:00 03/13/17 16:00 03/13/17 16:00 Intake and Output: 03/13/17 03/14/17 18:59 06:59 Intake Total 880 880 Output Total 650 300 Balance 230 580 - Medications Medications: Current Medications Aspirin (Aspirin Chewable) 81 mg PEG DAILY [facility] Last Admin: 03/13/17 10:13 Dose: 81 mg Bethanechol Chloride (Urecholine) 50 mg PEG TID [facility] Last Admin: 03/13/17 17:56 Dose: 50 mg Bisacodyl (Dulcolax) 5 mg PO Q72H PRN PRN Reason: Constipation Carvedilol (Coreg) 3.125 mg PEG BID [facility] Last Admin: 03/13/17 17:56 Dose: 3.125 mg Clopidogrel Bisulfate (Plavix) 75 mg PEG DAILY [facility] Last Admin: 03/13/17 10:13 Dose: 75 mg Emollient Ointment (Vaseline Oint) 5 gm TOP BID PRN PRN Reason: Dry skin Last Admin: 03/10/17 09:27 Dose: 5 gm Enoxaparin Sodium (Lovenox) 40 mg SC DAILY [facility] Last Admin: 03/13/17 10:13 Dose: 40 mg Famotidine (Pepcid) 20 mg PEG BID [facility] Last Admin: 03/13/17 17:56 Dose: 20 mg Finasteride (Proscar) 5 mg PEG DAILY [facility] Last Admin: 03/13/17 10:14 Dose: 5 mg Levetiracetam (Keppra) 500 mg PEG BID [facility] Last Admin: 03/13/17 17:57 Dose: 500 mg Tamsulosin HCl (Flomax) 0.4 mg PEG DAILY [facility] Last Admin: 03/13/17 10:13 Dose: 0.4 mg - Labs Labs: 03/09/17 14:29 03/09/17 14:29 PT 10.6 SECONDS (9.7-12.2) 11/24/15 14:10 INR 1.0 11/24/15 14:10 APTT 25 SECONDS (21-34) 11/24/15 14:10 - Additional Findings Additional findings: - Constitutional Appears: Non-toxic, No Acute Distress, Chronically Ill - Head Exam Head Exam: ATRAUMATIC, NORMAL INSPECTION, NORMOCEPHALIC - Eye Exam Eye Exam: Normal appearance Pupil Exam: PERRL - ENT Exam ENT Exam: Mucous Membranes Moist - Neck Exam Additional comments: trach in place, no blood noted - Respiratory Exam Respiratory Exam: Mild Wheezing B/L, NORMAL BREATHING PATTERN - Cardiovascular Exam Cardiovascular Exam: +S1, +S2. absent: Tachycardia - GI/Abdominal Exam GI & Abdominal Exam: Soft, Normal Bowel Sounds Additional comments: PEG tube in place - Exam Additional comments: condom catheter in place - Extremities Exam Additional comments: Prevalon boots and SCDs in place - Neurological Exam Neurological Exam: Awake, does not follow simple commands or track with eyes, not alert - Psychiatric Exam Psychiatric exam: Non verbal - Skin Additional comments: foam support for sacral ulcer in place Assessment and Plan - Assessment and Plan (Free Text) Assessment: 1. Anoxic brain injury s/p cardiac arrest in 05/2015 no acute changes Pt awake, not alert, no sedation continue current management Stable 2. Respiratory failure 03/14: Wheezing overnight, no respiratory distress, SaO2 98% on Trach collar, ordered Duonebs x 1, cont aggressive suctioning, monitor 03/13: Continue aggressive suctioning. Monitor vitals. Afebrile trach collar in place - normal resp pattern. Instructed nursing to resume aggressive suctioning. 02/07: instructed nursing to give guanifesin for thickened secretions 01/12- starting mucinex for secretions 3. Blood at trach site 03/14: No blood noted at trach site 03/11: Resolved 03/10 instructed to resume aggressive suctioning as patient congested 03/09: Blood present today at trach site. Nursing instructed to suction gently. Will monitor. Will talk to respiratory/surg about changing the trach if needed 02/11 blood at tracheostomy site suctioned, no blood noted deeper than opening 4. Urinary Retention 03/14: [place] catheter in place, no reports of current urinary retention 02/17 Bladder scan <100 cc Flomax 0.4mg PEG daily Proscar 5mg PEG daily continue Bethanecol 50mg PEG TID- started after persistent retention and found to be effective. monitor I's and O's check bladder scan for residual urine three times weekly 02/04: bladder scan today, 50cc 01/29: condom cath in place 01/28: condom catheter displaced, so difficult to measure accurate output, but patient not retaining urine 01/27: yesterday was straight cath'd with 60cc clear cherie urine. bladder scan done twice with minimal residual urine seen. 01/18: 50 cc residual 5. Sacral Ulcers 03/14: Cont whole body care, turning pt, offloading pressure sites 03/13: Continue foam donut support to sacral ulcer. 03/08: continue wound management Small area stage II in upper gluteal cleft- pink base Stage II ulcer present on sacrum Continue frequent turning, protective ointment and skin checks. 01/07- wound care saw patient, air mattress adjusted and protective ointment applied to sacrum Continue wound care 6. Constipation 03/14: No constipation as per nursing 03/13: Continues to have normal bowel movements 03/10: resolved 03/09: Distended and firm abdomen. No bowel movement yesterday. Lactulose given via PEG once 03/08: continue to monitor for bowel movements 03/05: Per nursing, patient having daily bowel movements 03/04: Nurse notes patient had bowel movement. 03/02 Will follow up with nurse regarding bowel movements as patient's abdomen is slightly distended and firm. Had BM on 03/01 Nursing to record bowel movements Dulcolax 5mg PO Q72 hours prn constipation/no bowel movement 7. CAD (coronary artery disease) s/p cardiac stents on 06/13/15 Cont ASA 81mg via PEG daily Cont Coreg 3.125mg PEG BID Cont Plavix 75mg PO daily 8. Seizures Cont Keppra 500mg PEG BID for seizure prophylaxis Monitor 9. Lower extremity edema Stat dose of Lasix 20 mg via PEG given Cont Lasix via PEG as needed. Improving Monitor 10. PEG tube dysfunction resolved IR placed new PEG 2/14, functioning appropriately Cont tube feeding - Isosource 1.5 @ 60 ml/hour Weights weekly 11. UTI- resolved [place] catheter in place CBI discontinued 01/08, baker catheter removed, Condom catheter- voiding yellow/ slightly cloudy urine Monitor 12/30- Triple lumen Baker in place for irrigation, added neosporin to CBI Urine Culture 12/03/16 - Positive Kleb pneumo, sensitive to cipro - resolved. Off antibiotics now 12. Prophylactic measure Pepcid 20 mg PEG BID Lovenox 40mg SC daily SCDs and offloading boots continue to turn and reposition q2h Continue to monitor medication administrations and clinical presentation weekly labs- last drawn 02/09/17 Per dietary will continue tube feeds at the same rate due to nutritional needs <Donavan Hallman - Last Filed: 03/25/17 12:21> Objective - Vital Signs/Intake and Output Vital Signs (last 24 hours): Temp Pulse Resp BP Pulse Ox 98.7 F 86 20 115/77 98 03/25/17 08:04 03/25/17 08:04 03/25/17 08:04 03/25/17 08:04 03/25/17 08:04 Intake and Output: 03/25/17 03/25/17 06:59 18:59 Intake Total 1610 Output Total 400 Balance 1210 - Medications Medications: Current Medications Aspirin (Aspirin Chewable) 81 mg PEG DAILY [facility] Last Admin: 03/25/17 10:10 Dose: 81 mg Bethanechol Chloride (Urecholine) 50 mg PEG TID [facility] Last Admin: 03/24/17 18:05 Dose: 50 mg Bisacodyl (Dulcolax) 5 mg PO Q72H PRN PRN Reason: Constipation Last Admin: 03/20/17 10:57 Dose: 5 mg Carvedilol (Coreg) 3.125 mg PEG BID [facility] Last Admin: 03/25/17 10:11 Dose: 3.125 mg Clopidogrel Bisulfate (Plavix) 75 mg PEG DAILY [facility] Last Admin: 03/25/17 10:11 Dose: 75 mg Emollient Ointment (Vaseline Oint) 5 gm TOP BID PRN PRN Reason: Dry skin Last Admin: 03/20/17 13:41 Dose: 5 gm Enoxaparin Sodium (Lovenox) 40 mg SC DAILY [facility] Last Admin: 03/25/17 10:10 Dose: 40 mg Famotidine (Pepcid) 20 mg PEG BID [facility] Last Admin: 03/25/17 10:10 Dose: 20 mg Finasteride (Proscar) 5 mg PEG DAILY [facility] Last Admin: 03/25/17 10:11 Dose: 5 mg Meropenem 1 gm/ Sodium (Chloride) 100 mls @ 200 mls/hr IVPB Q8H [facility] Last Admin: 03/25/17 10:11 Dose: 200 mls/hr Levetiracetam (Keppra) 500 mg PEG BID [facility] Last Admin: 03/25/17 12:12 Dose: 500 mg Tamsulosin HCl (Flomax) 0.4 mg PEG DAILY [facility] Last Admin: 03/25/17 10:10 Dose: 0.4 mg - Labs Labs: 03/16/17 11:22 03/16/17 11:22 PT 10.6 SECONDS (9.7-12.2) 11/24/15 14:10 INR 1.0 11/24/15 14:10 APTT 25 SECONDS (21-34) 11/24/15 14:10 Attending/Attestation - Attestation I have personally seen and examined this patient.: Yes I have fully participated in the care of the patient.: Yes I have reviewed all pertinent clinical information, including history, physical exam and plan: Yes Notes (Text): Patient seen and examined with the resident. Agree with the resident's evaluation, assessment and plan. Anoxic brain injury
[2017-03-14] MEDS: Enoxaparin 40 mg Syringe SC SCH (10:46)
[2017-03-14] MEDS: levETIRAcetam 100 mg/ml (5ml) Oral Syringe PEG SCH ×2 (10:46→18:07)
--- NOTE | 2017-03-15 00:50 | CP.PCM.PN ---
<Farrah Doan - Last Filed: 03/15/17 00:48> Subjective - Date & Time of Evaluation Date of Evaluation: 03/15/17 Time of Evaluation: 00:48 - Subjective Subjective: Internal medicine progress note for Hospitalist service- Farrah Doan, PGY-1 Pt S & E at bedside Pt resting comfortably in bed, no changes, no events as per nursing. Pt does not respond to verbal stimuli, withdraws to toxic stimuli. Pt stable. Objective - Vital Signs/Intake and Output Vital Signs (last 24 hours): Temp Pulse Resp BP Pulse Ox 97.6 F 86 20 112/77 99 03/14/17 23:37 03/14/17 23:37 03/14/17 23:37 03/14/17 23:37 03/14/17 23:37 Intake and Output: 03/14/17 03/15/17 18:59 06:59 Intake Total 880 650 Output Total 650 Balance 230 650 - Medications Medications: Current Medications Aspirin (Aspirin Chewable) 81 mg PEG DAILY [facility] Last Admin: 03/14/17 10:45 Dose: 81 mg Bethanechol Chloride (Urecholine) 50 mg PEG TID [facility] Last Admin: 03/14/17 18:07 Dose: 50 mg Bisacodyl (Dulcolax) 5 mg PO Q72H PRN PRN Reason: Constipation Carvedilol (Coreg) 3.125 mg PEG BID [facility] Last Admin: 03/14/17 18:07 Dose: 3.125 mg Clopidogrel Bisulfate (Plavix) 75 mg PEG DAILY [facility] Last Admin: 03/14/17 10:45 Dose: 75 mg Emollient Ointment (Vaseline Oint) 5 gm TOP BID PRN PRN Reason: Dry skin Last Admin: 03/10/17 09:27 Dose: 5 gm Enoxaparin Sodium (Lovenox) 40 mg SC DAILY [facility] Last Admin: 03/14/17 10:46 Dose: 40 mg Famotidine (Pepcid) 20 mg PEG BID [facility] Last Admin: 03/14/17 18:07 Dose: 20 mg Finasteride (Proscar) 5 mg PEG DAILY [facility] Last Admin: 03/14/17 10:46 Dose: 5 mg Levetiracetam (Keppra) 500 mg PEG BID [facility] Last Admin: 03/14/17 18:07 Dose: 500 mg Tamsulosin HCl (Flomax) 0.4 mg PEG DAILY [facility] Last Admin: 03/14/17 10:46 Dose: 0.4 mg - Labs Labs: 03/09/17 14:29 03/09/17 14:29 PT 10.6 SECONDS (9.7-12.2) 11/24/15 14:10 INR 1.0 11/24/15 14:10 APTT 25 SECONDS (21-34) 11/24/15 14:10 - Constitutional Appears: No Acute Distress, Chronically Ill - Head Exam Head Exam: ATRAUMATIC, NORMAL INSPECTION, NORMOCEPHALIC - Eye Exam Eye Exam: EOMI, Normal appearance - ENT Exam ENT Exam: Mucous Membranes Dry, Normal Exam - Neck Exam Neck Exam: Normal Inspection. absent: Full ROM Additional comments: tracheostomy in place- no blood noted - Respiratory Exam Respiratory Exam: Clear to Ausculation Bilateral, NORMAL BREATHING PATTERN. absent: Rales, Rhonchi, Wheezes, Respiratory Distress - Cardiovascular Exam Cardiovascular Exam: REGULAR RHYTHM, +S1, +S2. absent: Murmur - GI/Abdominal Exam GI & Abdominal Exam: Soft, Normal Bowel Sounds. absent: Distended Additional comments: Peg tube in place - Extremities Exam Extremities Exam: absent: Full ROM Additional comments: extremities firm - Neurological Exam Neurological Exam: Awake. absent: Alert, Oriented x3 Additional comments: Non responsive to verbal stimuli, withdraws to toxic stimuli - Psychiatric Exam Additional comments: non verbal, unresponsive - Skin Skin Exam: Dry, Intact, Normal Color, Warm Additional comments: few small superficial abrasions on lateral aspect of left forearm- healing Assessment and Plan - Assessment and Plan (Free Text) Assessment: 1. Anoxic brain injury s/p cardiac arrest in 05/2015 no acute changes Pt awake, not alert, no sedation continue current management Stable 2. Respiratory failure 03/15: No respiratory distress, no wheezing noted 03/14: Wheezing overnight, no respiratory distress, SaO2 98% on Trach collar, ordered Duonebs x 1, cont aggressive suctioning, monitor 03/13: Continue aggressive suctioning. Monitor vitals. Afebrile trach collar in place - normal resp pattern. Instructed nursing to resume aggressive suctioning. 02/07: instructed nursing to give guanifesin for thickened secretions 01/12- starting mucinex for secretions 3. Blood at trach site 03/15: Trach in place, no drainage/blood 03/14: No blood noted at trach site 03/11: Resolved 03/10 instructed to resume aggressive suctioning as patient congested 03/09: Blood present today at trach site. Nursing instructed to suction gently. Will monitor. Will talk to respiratory/surg about changing the trach if needed 02/11 blood at tracheostomy site suctioned, no blood noted deeper than opening 4. Urinary Retention 03/15: No reports of urinary retention 03/14: [place] catheter in place, no reports of current urinary retention 02/17 Bladder scan <100 cc Flomax 0.4mg PEG daily Proscar 5mg PEG daily continue Bethanecol 50mg PEG TID- started after persistent retention and found to be effective. monitor I's and O's check bladder scan for residual urine three times weekly 02/04: bladder scan today, 50cc 01/29: condom cath in place 01/28: condom catheter displaced, so difficult to measure accurate output, but patient not retaining urine 01/27: yesterday was straight cath'd with 60cc clear cherie urine. bladder scan done twice with minimal residual urine seen. 01/18: 50 cc residual 5. Sacral Ulcers 03/15: Cont pt care with offloading/cushioning/turning 03/14: Cont whole body care, turning pt, offloading pressure sites 03/13: Continue foam donut support to sacral ulcer. 03/08: continue wound management Small area stage II in upper gluteal cleft- pink base Stage II ulcer present on sacrum Continue frequent turning, protective ointment and skin checks. 01/07- wound care saw patient, air mattress adjusted and protective ointment applied to sacrum Continue wound care 6. Constipation 03/15: No constipation as per nursing 03/14: No constipation as per nursing 03/13: Continues to have normal bowel movements 03/10: resolved 03/09: Distended and firm abdomen. No bowel movement yesterday. Lactulose given via PEG once 03/08: continue to monitor for bowel movements 03/05: Per nursing, patient having daily bowel movements 03/04: Nurse notes patient had bowel movement. 03/02 Will follow up with nurse regarding bowel movements as patient's abdomen is slightly distended and firm. Had BM on 03/01 Nursing to record bowel movements Dulcolax 5mg PO Q72 hours prn constipation/no bowel movement 7. CAD (coronary artery disease) s/p cardiac stents on 06/13/15 Cont ASA 81mg via PEG daily Cont Coreg 3.125mg PEG BID Cont Plavix 75mg PO daily 8. Seizures Cont Keppra 500mg PEG BID for seizure prophylaxis Monitor 9. Lower extremity edema Stat dose of Lasix 20 mg via PEG given Cont Lasix via PEG as needed. Improving Monitor 10. PEG tube dysfunction resolved IR placed new PEG 01/06, functioning appropriately Cont tube feeding - Isosource 1.5 @ 60 ml/hour Weights weekly 11. UTI- resolved [place] catheter in place- urine cloudy in tubing CBI discontinued 01/08, baker catheter removed, Condom catheter- voiding yellow/ slightly cloudy urine Monitor 12/30- Triple lumen Baker in place for irrigation, added neosporin to CBI Urine Culture 12/03/16 - Positive Kleb pneumo, sensitive to cipro - resolved. Off antibiotics now 12. Prophylactic measure Pepcid 20 mg PEG BID Lovenox 40mg SC daily SCDs and offloading boots continue to turn and reposition q2h Continue to monitor medication administrations and clinical presentation weekly labs- last drawn 02/09/17 Per dietary will continue tube feeds at the same rate due to nutritional needs Dispo Cont current mgmt Pt stable <Colleen Braswell V - Last Filed: 03/15/17 12:21> Objective - Vital Signs/Intake and Output Vital Signs (last 24 hours): Temp Pulse Resp BP Pulse Ox 98.7 F 85 20 124/86 95 03/15/17 08:19 03/15/17 08:19 03/15/17 08:19 03/15/17 08:19 03/15/17 08:19 Intake and Output: 03/15/17 03/15/17 06:59 18:59 Intake Total 650 Balance 650 - Medications Medications: Current Medications Aspirin (Aspirin Chewable) 81 mg PEG DAILY [facility] Last Admin: 03/15/17 11:01 Dose: 81 mg Bethanechol Chloride (Urecholine) 50 mg PEG TID [facility] Last Admin: 03/15/17 10:57 Dose: 50 mg Bisacodyl (Dulcolax) 5 mg PO Q72H PRN PRN Reason: Constipation Carvedilol (Coreg) 3.125 mg PEG BID [facility] Last Admin: 03/15/17 10:58 Dose: 3.125 mg Clopidogrel Bisulfate (Plavix) 75 mg PEG DAILY [facility] Last Admin: 03/15/17 10:58 Dose: 75 mg Emollient Ointment (Vaseline Oint) 5 gm TOP BID PRN PRN Reason: Dry skin Last Admin: 03/10/17 09:27 Dose: 5 gm Enoxaparin Sodium (Lovenox) 40 mg SC DAILY [facility] Last Admin: 03/15/17 10:58 Dose: 40 mg Famotidine (Pepcid) 20 mg PEG BID [facility] Last Admin: 03/15/17 10:58 Dose: 20 mg Finasteride (Proscar) 5 mg PEG DAILY [facility] Last Admin: 03/15/17 10:58 Dose: 5 mg Levetiracetam (Keppra) 500 mg PEG BID [facility] Last Admin: 03/15/17 10:58 Dose: 500 mg Tamsulosin HCl (Flomax) 0.4 mg PEG DAILY [facility] Last Admin: 03/15/17 10:58 Dose: 0.4 mg - Labs Labs: 03/09/17 14:29 03/09/17 14:29 PT 10.6 SECONDS (9.7-12.2) 11/24/15 14:10 INR 1.0 11/24/15 14:10 APTT 25 SECONDS (21-34) 11/24/15 14:10 Attending/Attestation - Attestation I have personally seen and examined this patient.: Yes I have fully participated in the care of the patient.: Yes I have reviewed all pertinent clinical information, including history, physical exam and plan: Yes Notes (Text): Patient was seen and examined at bedside with the resident There is no change in clinical condition. Continue local care of the tracheostomy and the PEG site. Continue to turn and position every 2 hours. Offloading of the heels.
[2017-03-15] MEDS: Enoxaparin 40 mg Syringe SC SCH (10:58)
[2017-03-15] MEDS: levETIRAcetam 100 mg/ml (5ml) Oral Syringe PEG SCH ×2 (10:58→18:40)
--- NOTE | 2017-03-16 09:20 | CP.PCM.PN ---
<Mee Luciano - Last Filed: 03/16/17 13:22> Subjective - Date & Time of Evaluation Date of Evaluation: 03/16/17 Time of Evaluation: 09:20 - Subjective Subjective: Patient seen and examined at bedside. No acute events per nursing. Review of systems limited secondary to anoxic brain injury. Appears comfortable, however, thick secretions present requiring suctioning. Objective - Vital Signs/Intake and Output Vital Signs (last 24 hours): Temp Pulse Resp BP Pulse Ox 97.6 F 88 20 121/80 98 03/16/17 07:47 03/16/17 07:47 03/16/17 07:47 03/16/17 07:47 03/16/17 07:47 Intake and Output: 03/16/17 03/16/17 06:59 18:59 Intake Total 1360 Output Total 400 Balance 960 - Medications Medications: Current Medications Aspirin (Aspirin Chewable) 81 mg PEG DAILY [facility] Last Admin: 03/15/17 11:01 Dose: 81 mg Bethanechol Chloride (Urecholine) 50 mg PEG TID [facility] Last Admin: 03/15/17 18:40 Dose: 50 mg Bisacodyl (Dulcolax) 5 mg PO Q72H PRN PRN Reason: Constipation Carvedilol (Coreg) 3.125 mg PEG BID [facility] Last Admin: 03/15/17 18:40 Dose: 3.125 mg Clopidogrel Bisulfate (Plavix) 75 mg PEG DAILY [facility] Last Admin: 03/15/17 10:58 Dose: 75 mg Emollient Ointment (Vaseline Oint) 5 gm TOP BID PRN PRN Reason: Dry skin Last Admin: 03/10/17 09:27 Dose: 5 gm Enoxaparin Sodium (Lovenox) 40 mg SC DAILY [facility] Last Admin: 03/15/17 10:58 Dose: 40 mg Famotidine (Pepcid) 20 mg PEG BID [facility] Last Admin: 03/15/17 18:40 Dose: 20 mg Finasteride (Proscar) 5 mg PEG DAILY [facility] Last Admin: 03/15/17 10:58 Dose: 5 mg Levetiracetam (Keppra) 500 mg PEG BID [facility] Last Admin: 03/15/17 18:40 Dose: 500 mg Tamsulosin HCl (Flomax) 0.4 mg PEG DAILY [facility] Last Admin: 03/15/17 10:58 Dose: 0.4 mg - Labs Labs: 03/09/17 14:29 03/09/17 14:29 PT 10.6 SECONDS (9.7-12.2) 11/24/15 14:10 INR 1.0 11/24/15 14:10 APTT 25 SECONDS (21-34) 11/24/15 14:10 - Constitutional Appears: Non-toxic, No Acute Distress, Chronically Ill - Head Exam Head Exam: ATRAUMATIC, NORMAL INSPECTION, NORMOCEPHALIC - Eye Exam Eye Exam: PERRL - ENT Exam ENT Exam: Mucous Membranes Moist - Neck Exam Additional comments: trach in place, thick secretions present - Respiratory Exam Respiratory Exam: Wheezes - Cardiovascular Exam Cardiovascular Exam: +S1, +S2. absent: Tachycardia - GI/Abdominal Exam GI & Abdominal Exam: Soft, Normal Bowel Sounds Additional comments: PEG in place - Extremities Exam Additional comments: prevalon boots and SCDs in place - Neurological Exam Neurological Exam: Awake - Psychiatric Exam Psychiatric exam: Flat Affect - Skin Additional comments: healing sacral ulcer Assessment and Plan - Assessment and Plan (Free Text) Assessment: 1. Anoxic brain injury s/p cardiac arrest in 05/2015 no acute changes Pt awake, not alert, no sedation continue current management Stable 2. Respiratory failure 03/16: Wheezing, continue aggressive suctioning 03/15: No respiratory distress, no wheezing noted 03/14: Wheezing overnight, no respiratory distress, SaO2 98% on Trach collar, ordered Duonebs x 1, cont aggressive suctioning, monitor 03/13: Continue aggressive suctioning. Monitor vitals. Afebrile trach collar in place - normal resp pattern. Instructed nursing to resume aggressive suctioning. 02/07: instructed nursing to give guanifesin for thickened secretions 01/12- starting mucinex for secretions 3. Blood at trach site 03/16: Resolved 03/15: Trach in place, no drainage/blood 03/14: No blood noted at trach site 03/11: Resolved 03/10 instructed to resume aggressive suctioning as patient congested 03/09: Blood present today at trach site. Nursing instructed to suction gently. Will monitor. Will talk to respiratory/surg about changing the trach if needed 02/11 blood at tracheostomy site suctioned, no blood noted deeper than opening 4. Urinary Retention 03/16: Resolved 03/15: No reports of urinary retention 03/14: [place] catheter in place, no reports of current urinary retention 02/17 Bladder scan <100 cc Flomax 0.4mg PEG daily Proscar 5mg PEG daily continue Bethanecol 50mg PEG TID- started after persistent retention and found to be effective. monitor I's and O's check bladder scan for residual urine three times weekly 02/04: bladder scan today, 50cc 01/29: condom cath in place 01/28: condom catheter displaced, so difficult to measure accurate output, but patient not retaining urine 01/27: yesterday was straight cath'd with 60cc clear cherie urine. bladder scan done twice with minimal residual urine seen. 01/18: 50 cc residual 5. Sacral Ulcers 03/16: Cont pt care with offloading/cushioning/turning 03/14: Cont whole body care, turning pt, offloading pressure sites 03/13: Continue foam donut support to sacral ulcer. 03/08: continue wound management Small area stage II in upper gluteal cleft- pink base Stage II ulcer present on sacrum Continue frequent turning, protective ointment and skin checks. 01/07- wound care saw patient, air mattress adjusted and protective ointment applied to sacrum Continue wound care 6. Constipation 03/16: resolved 03/15: No constipation as per nursing 03/14: No constipation as per nursing 03/13: Continues to have normal bowel movements 03/10: resolved 03/09: Distended and firm abdomen. No bowel movement yesterday. Lactulose given via PEG once 03/08: continue to monitor for bowel movements 03/05: Per nursing, patient having daily bowel movements 03/04: Nurse notes patient had bowel movement. 03/02 Will follow up with nurse regarding bowel movements as patient's abdomen is slightly distended and firm. Had BM on 03/01 Nursing to record bowel movements Dulcolax 5mg PO Q72 hours prn constipation/no bowel movement 7. CAD (coronary artery disease) s/p cardiac stents on 06/13/15 Cont ASA 81mg via PEG daily Cont Coreg 3.125mg PEG BID Cont Plavix 75mg PO daily 8. Seizures Cont Keppra 500mg PEG BID for seizure prophylaxis Monitor 9. Lower extremity edema Cont Lasix via PEG as needed. Improving Monitor 10. PEG tube dysfunction resolved IR placed new PEG 01/06, functioning appropriately Cont tube feeding - Isosource 1.5 @ 60 ml/hour Weights weekly 11. UTI- resolved [place] catheter in place CBI discontinued 01/08, baker catheter removed, Condom catheter- voiding yellow/ slightly cloudy urine Monitor 12/30- Triple lumen Baker in place for irrigation, added neosporin to CBI Urine Culture 12/03/16 - Positive Kleb pneumo, sensitive to cipro - resolved. Off antibiotics now 12. Prophylactic measure Pepcid 20 mg PEG BID Lovenox 40mg SC daily SCDs and offloading boots continue to turn and reposition q2h Continue to monitor medication administrations and clinical presentation weekly labs- last drawn 02/09/17 Per dietary will continue tube feeds at the same rate due to nutritional needs Dispo Cont current mgmt Pt stable <Donnell Ying - Last Filed: 03/16/17 16:00> Objective - Vital Signs/Intake and Output Vital Signs (last 24 hours): Temp Pulse Resp BP Pulse Ox 97.6 F 88 20 121/80 98 03/16/17 07:47 03/16/17 07:47 03/16/17 07:47 03/16/17 07:47 03/16/17 07:47 Intake and Output: 03/16/17 03/16/17 06:59 18:59 Intake Total 1360 680 Output Total 400 600 Balance 960 80 - Medications Medications: Current Medications Aspirin (Aspirin Chewable) 81 mg PEG DAILY [facility] Last Admin: 03/16/17 11:02 Dose: 81 mg Bethanechol Chloride (Urecholine) 50 mg PEG TID [facility] Last Admin: 03/16/17 14:19 Dose: 50 mg Bisacodyl (Dulcolax) 5 mg PO Q72H PRN PRN Reason: Constipation Carvedilol (Coreg) 3.125 mg PEG BID [facility] Last Admin: 03/16/17 11:02 Dose: 3.125 mg Clopidogrel Bisulfate (Plavix) 75 mg PEG DAILY [facility] Last Admin: 03/16/17 11:02 Dose: 75 mg Emollient Ointment (Vaseline Oint) 5 gm TOP BID PRN PRN Reason: Dry skin Last Admin: 03/10/17 09:27 Dose: 5 gm Enoxaparin Sodium (Lovenox) 40 mg SC DAILY [facility] Last Admin: 03/16/17 11:01 Dose: 40 mg Famotidine (Pepcid) 20 mg PEG BID [facility] Last Admin: 03/16/17 11:02 Dose: 20 mg Finasteride (Proscar) 5 mg PEG DAILY [facility] Last Admin: 03/16/17 11:03 Dose: 5 mg Levetiracetam (Keppra) 500 mg PEG BID [facility] Last Admin: 03/16/17 11:02 Dose: 500 mg Tamsulosin HCl (Flomax) 0.4 mg PEG DAILY [facility] Last Admin: 03/16/17 11:01 Dose: 0.4 mg - Labs Labs: 03/16/17 11:22 03/16/17 11:22 PT 10.6 SECONDS (9.7-12.2) 11/24/15 14:10 INR 1.0 11/24/15 14:10 APTT 25 SECONDS (21-34) 11/24/15 14:10 Attending/Attestation - Attestation I have personally seen and examined this patient.: Yes I have fully participated in the care of the patient.: Yes I have reviewed all pertinent clinical information, including history, physical exam and plan: Yes Notes (Text): 03/16/17 16:00 Patient was seen and examined at bedside with the resident Continue current medical management Discussed the plan of care with the resident and agree with the above history and physical and assessment/plan but the resident.
[2017-03-16] MEDS: Enoxaparin 40 mg Syringe SC SCH (11:01)
[2017-03-16] MEDS: levETIRAcetam 100 mg/ml (5ml) Oral Syringe PEG SCH ×2 (11:02→17:30)
[2017-03-16 11:29] LABS: BASO % 0.4 % (0.0-2.0); EOS # 0.3 K/uL (0.0-0.7); EOS % 3.9 % (0.0-4.0); HEMOGLOBIN 11.8 g/dL (12.0-18.0); MEAN CELL VOLUME 87.8 fL (80.0-94.0); MEAN CORPUSCULAR HEMOGLOBIN 28.4 pg (27.0-31.0); MEAN CORPUSCULAR HGB CONC 32.3 g/dL (33.0-37.0); MEAN PLATELET VOLUME 8.8 fL (7.2-11.7); MONO # 0.8 K/uL (0.0-0.8); MONO % 9.7 % (0.0-10.0); NEUT # 4.9 K/uL (1.8-7.0); RBC 4.16 Mil/uL (4.40-5.90); RED CELL DISTRIBUTION WIDTH 15.4 % (11.5-14.5); WHITE BLOOD COUNT 8.1 K/uL (4.8-10.8)
[2017-03-16 11:35] LABS: ALBUMIN 3.7 g/dL (3.5-5.0)
[2017-03-16 11:38] LABS: ALB/GLOB RATIO 0.9 (1.0-2.1); AST/SGOT 32 U/L (17-59); BLOOD UREA NITROGEN 17 mg/dL (9-20); GFR NON-AFRICAN AMERICAN > 60
[2017-03-16 11:39] LABS: ALT/SGPT 69 U/L (21-72); CALCIUM 8.4 mg/dl (8.6-10.4)
[2017-03-17] MEDS: Enoxaparin 40 mg Syringe SC SCH (10:45)
[2017-03-17] MEDS: levETIRAcetam 100 mg/ml (5ml) Oral Syringe PEG SCH ×2 (10:45→18:45)
--- NOTE | 2017-03-17 13:32 | CP.PCM.PN ---
Addendum entered and electronically signed by Mee Luciano DO 03/17/17 21: 01: Lasix 20 mg via PEG given . Original Note: <Mee Luciano - Last Filed: 03/17/17 13:28> Subjective - Date & Time of Evaluation Date of Evaluation: 03/17/17 Time of Evaluation: 13:28 - Subjective Subjective: Patient seen and examined at bedside. No acute events per nursing. Review of systems unable to be obtained due to anoxic brain injury. Objective - Vital Signs/Intake and Output Vital Signs (last 24 hours): Temp Pulse Resp BP Pulse Ox 97.9 F 87 20 111/74 98 03/17/17 07:57 03/17/17 07:57 03/17/17 07:57 03/17/17 07:57 03/17/17 07:57 Intake and Output: 03/17/17 03/17/17 06:59 18:59 Intake Total 680 1360 Output Total 500 Balance 680 860 - Medications Medications: Current Medications Aspirin (Aspirin Chewable) 81 mg PEG DAILY [facility] Last Admin: 03/17/17 10:45 Dose: 81 mg Bethanechol Chloride (Urecholine) 50 mg PEG TID [facility] Last Admin: 03/17/17 10:46 Dose: 50 mg Bisacodyl (Dulcolax) 5 mg PO Q72H PRN PRN Reason: Constipation Carvedilol (Coreg) 3.125 mg PEG BID [facility] Last Admin: 03/17/17 10:45 Dose: 3.125 mg Clopidogrel Bisulfate (Plavix) 75 mg PEG DAILY [facility] Last Admin: 03/17/17 10:46 Dose: 75 mg Emollient Ointment (Vaseline Oint) 5 gm TOP BID PRN PRN Reason: Dry skin Last Admin: 03/10/17 09:27 Dose: 5 gm Enoxaparin Sodium (Lovenox) 40 mg SC DAILY [facility] Last Admin: 03/17/17 10:45 Dose: 40 mg Famotidine (Pepcid) 20 mg PEG BID [facility] Last Admin: 03/17/17 10:57 Dose: 20 mg Finasteride (Proscar) 5 mg PEG DAILY [facility] Last Admin: 03/17/17 10:46 Dose: 5 mg Levetiracetam (Keppra) 500 mg PEG BID [facility] Last Admin: 03/17/17 10:45 Dose: 500 mg Tamsulosin HCl (Flomax) 0.4 mg PEG DAILY [facility] Last Admin: 03/17/17 10:45 Dose: 0.4 mg - Labs Labs: 03/16/17 11:22 03/16/17 11:22 PT 10.6 SECONDS (9.7-12.2) 11/24/15 14:10 INR 1.0 11/24/15 14:10 APTT 25 SECONDS (21-34) 11/24/15 14:10 - Constitutional Appears: Non-toxic, No Acute Distress, Chronically Ill - Head Exam Head Exam: ATRAUMATIC, NORMAL INSPECTION, NORMOCEPHALIC - Eye Exam Eye Exam: PERRL - ENT Exam ENT Exam: Mucous Membranes Moist - Neck Exam Additional comments: trach in place. no surrounding erythema. Thick secretions noted - Respiratory Exam Respiratory Exam: Wheezes. absent: Rales, Rhonchi - Cardiovascular Exam Cardiovascular Exam: +S1, +S2. absent: Tachycardia - GI/Abdominal Exam GI & Abdominal Exam: Soft, Normal Bowel Sounds. absent: Firm, Guarding, Tenderness Additional comments: PEG tube in place. No discharge noted. - Extremities Exam Extremities Exam: Normal Inspection Additional comments: prevalon boots and SCDs in place - Neurological Exam Neurological Exam: Awake - Psychiatric Exam Psychiatric exam: Flat Affect - Skin Skin Exam: Intact, Normal Color Assessment and Plan - Assessment and Plan (Free Text) Assessment: 1. Anoxic brain injury s/p cardiac arrest in 05/2015 no acute changes Pt awake, not alert, no sedation continue current management Stable 2. Respiratory failure 03/17: Continue current management 03/16: Wheezing, continue aggressive suctioning 03/15: No respiratory distress, no wheezing noted 03/14: Wheezing overnight, no respiratory distress, SaO2 98% on Trach collar, ordered Duonebs x 1, cont aggressive suctioning, monitor 03/13: Continue aggressive suctioning. Monitor vitals. Afebrile trach collar in place - normal resp pattern. Instructed nursing to resume aggressive suctioning. 02/07: instructed nursing to give guanifesin for thickened secretions 01/12- starting mucinex for secretions 3. Blood at trach site 03/16: Resolved 03/15: Trach in place, no drainage/blood 03/14: No blood noted at trach site 03/11: Resolved 03/10 instructed to resume aggressive suctioning as patient congested 03/09: Blood present today at trach site. Nursing instructed to suction gently. Will monitor. Will talk to respiratory/surg about changing the trach if needed 02/11 blood at tracheostomy site suctioned, no blood noted deeper than opening 4. Urinary Retention 03/16: Resolved 03/15: No reports of urinary retention 03/14: [place] catheter in place, no reports of current urinary retention 02/17 Bladder scan <100 cc Flomax 0.4mg PEG daily Proscar 5mg PEG daily continue Bethanecol 50mg PEG TID- started after persistent retention and found to be effective. monitor I's and O's check bladder scan for residual urine three times weekly 02/04: bladder scan today, 50cc 01/29: condom cath in place 01/28: condom catheter displaced, so difficult to measure accurate output, but patient not retaining urine 01/27: yesterday was straight cath'd with 60cc clear cherie urine. bladder scan done twice with minimal residual urine seen. 01/18: 50 cc residual 5. Sacral Ulcers 03/16: Cont pt care with offloading/cushioning/turning 03/14: Cont whole body care, turning pt, offloading pressure sites 03/13: Continue foam donut support to sacral ulcer. 03/08: continue wound management Small area stage II in upper gluteal cleft- pink base Stage II ulcer present on sacrum Continue frequent turning, protective ointment and skin checks. 01/07- wound care saw patient, air mattress adjusted and protective ointment applied to sacrum Continue wound care 6. Constipation 03/16: resolved 03/15: No constipation as per nursing 03/14: No constipation as per nursing 03/13: Continues to have normal bowel movements 03/10: resolved 03/09: Distended and firm abdomen. No bowel movement yesterday. Lactulose given via PEG once 03/08: continue to monitor for bowel movements 03/05: Per nursing, patient having daily bowel movements 03/04: Nurse notes patient had bowel movement. 03/02 Will follow up with nurse regarding bowel movements as patient's abdomen is slightly distended and firm. Had BM on 03/01 Nursing to record bowel movements Dulcolax 5mg PO Q72 hours prn constipation/no bowel movement 7. CAD (coronary artery disease) s/p cardiac stents on 06/13/15 Cont ASA 81mg via PEG daily Cont Coreg 3.125mg PEG BID Cont Plavix 75mg PO daily 8. Seizures Cont Keppra 500mg PEG BID for seizure prophylaxis Monitor 9. Lower extremity edema Cont Lasix via PEG as needed. Improving Monitor 10. PEG tube dysfunction resolved IR placed new PEG 01/06, functioning appropriately Cont tube feeding - Isosource 1.5 @ 60 ml/hour Weights weekly 11. UTI- resolved [place] catheter in place CBI discontinued 01/08, baker catheter removed, Condom catheter- voiding yellow/ slightly cloudy urine Monitor 12/30- Triple lumen Baker in place for irrigation, added neosporin to CBI Urine Culture 12/03/16 - Positive Kleb pneumo, sensitive to cipro - resolved. Off antibiotics now 12. Prophylactic measure Pepcid 20 mg PEG BID Lovenox 40mg SC daily SCDs and offloading boots continue to turn and reposition q2h Continue to monitor medication administrations and clinical presentation weekly labs- last drawn 02/09/17 Per dietary will continue tube feeds at the same rate due to nutritional needs Dispo Cont current mgmt Pt stable <Donnell Ying M - Last Filed: 03/18/17 17:05> Objective - Vital Signs/Intake and Output Vital Signs (last 24 hours): Temp Pulse Resp BP Pulse Ox 98.2 F 81 20 126/80 100 03/18/17 15:00 03/18/17 15:00 03/18/17 15:00 03/18/17 15:00 03/18/17 15:00 Intake and Output: 03/18/17 03/18/17 06:59 18:59 Intake Total 880 880 Output Total 300 500 Balance 580 380 - Medications Medications: Current Medications Aspirin (Aspirin Chewable) 81 mg PEG DAILY [facility] Last Admin: 03/18/17 09:50 Dose: 81 mg Bethanechol Chloride (Urecholine) 50 mg PEG TID [facility] Last Admin: 03/18/17 13:52 Dose: 50 mg Bisacodyl (Dulcolax) 5 mg PO Q72H PRN PRN Reason: Constipation Carvedilol (Coreg) 3.125 mg PEG BID [facility] Last Admin: 03/18/17 09:50 Dose: 3.125 mg Ciprofloxacin (Cipro) 250 mg PO BID [facility] Clopidogrel Bisulfate (Plavix) 75 mg PEG DAILY [facility] Last Admin: 03/18/17 09:50 Dose: 75 mg Emollient Ointment (Vaseline Oint) 5 gm TOP BID PRN PRN Reason: Dry skin Last Admin: 03/10/17 09:27 Dose: 5 gm Enoxaparin Sodium (Lovenox) 40 mg SC DAILY [facility] Last Admin: 03/18/17 09:50 Dose: 40 mg Famotidine (Pepcid) 20 mg PEG BID [facility] Last Admin: 03/18/17 09:50 Dose: 20 mg Finasteride (Proscar) 5 mg PEG DAILY [facility] Last Admin: 03/18/17 09:51 Dose: 5 mg Levetiracetam (Keppra) 500 mg PEG BID [facility] Last Admin: 03/18/17 09:50 Dose: 500 mg Tamsulosin HCl (Flomax) 0.4 mg PEG DAILY [facility] Last Admin: 03/18/17 09:50 Dose: 0.4 mg - Labs Labs: 03/16/17 11:22 03/16/17 11:22 PT 10.6 SECONDS (9.7-12.2) 11/24/15 14:10 INR 1.0 11/24/15 14:10 APTT 25 SECONDS (21-34) 11/24/15 14:10 Attending/Attestation - Attestation I have personally seen and examined this patient.: Yes I have fully participated in the care of the patient.: Yes I have reviewed all pertinent clinical information, including history, physical exam and plan: Yes Notes (Text): 03/18/17 17:05 Patient was seen and examined at bedside with the resident I discussed the plan of care with the resident and agree with the above history and physical and assessment/plan by the resident.
[2017-03-17 23:51] LABS: SQUAMOUS EPITHIAL 3 /hpf (0-5); URINE BACTERIA MANY (<OCC); URINE BILIRUBIN NEGATIVE (NEGATIVE); URINE CLARITY Turbid (Clear); URINE COLOR Amber (YELLOW); URINE GLUCOSE (UA) NORMAL (Normal); URINE LEUKOCYTE ESTERASE 3+ Leu/uL (Negative); URINE PROTEIN 2+ mg/dL (NEGATIVE); URINE TRIPLE PHOSPHATE CRYSTAL OCC /hpf (<OCC); URINE UROBILINOGEN NORMAL mg/dL (0.2-1.0)
[2017-03-17 23:52] LABS: URINE BLOOD 1+ (NEGATIVE)
[2017-03-18] MEDS: levETIRAcetam 100 mg/ml (5ml) Oral Syringe PEG SCH ×2 (09:50→18:11)
[2017-03-18] MEDS: Enoxaparin 40 mg Syringe SC SCH (09:50)
--- NOTE | 2017-03-18 10:22 | CP.PCM.PN ---
<Mee Luciano - Last Filed: 03/18/17 14:26> Subjective - Date & Time of Evaluation Date of Evaluation: 03/18/17 Time of Evaluation: 10:20 - Subjective Subjective: Patient seen and examined at bedside. Per nursing, no acute events overnight. Patient appears more edematous and wheezing appreciated on exam. Urinalysis is significant for positive leukocyte esterase and positive triple phosphate crystals. Currently awaiting culture. Objective - Vital Signs/Intake and Output Vital Signs (last 24 hours): Temp Pulse Resp BP Pulse Ox 98.7 F 81 20 117/82 100 03/18/17 07:58 03/18/17 07:58 03/18/17 07:58 03/18/17 07:58 03/18/17 07:58 Intake and Output: 03/18/17 03/18/17 06:59 18:59 Intake Total 880 Output Total 300 Balance 580 - Medications Medications: Current Medications Aspirin (Aspirin Chewable) 81 mg PEG DAILY [facility] Last Admin: 03/18/17 09:50 Dose: 81 mg Bethanechol Chloride (Urecholine) 50 mg PEG TID [facility] Last Admin: 03/18/17 09:51 Dose: 50 mg Bisacodyl (Dulcolax) 5 mg PO Q72H PRN PRN Reason: Constipation Carvedilol (Coreg) 3.125 mg PEG BID [facility] Last Admin: 03/18/17 09:50 Dose: 3.125 mg Clopidogrel Bisulfate (Plavix) 75 mg PEG DAILY [facility] Last Admin: 03/18/17 09:50 Dose: 75 mg Emollient Ointment (Vaseline Oint) 5 gm TOP BID PRN PRN Reason: Dry skin Last Admin: 03/10/17 09:27 Dose: 5 gm Enoxaparin Sodium (Lovenox) 40 mg SC DAILY [facility] Last Admin: 03/18/17 09:50 Dose: 40 mg Famotidine (Pepcid) 20 mg PEG BID [facility] Last Admin: 03/18/17 09:50 Dose: 20 mg Finasteride (Proscar) 5 mg PEG DAILY [facility] Last Admin: 03/18/17 09:51 Dose: 5 mg Levetiracetam (Keppra) 500 mg PEG BID [facility] Last Admin: 03/18/17 09:50 Dose: 500 mg Tamsulosin HCl (Flomax) 0.4 mg PEG DAILY [facility] Last Admin: 03/18/17 09:50 Dose: 0.4 mg - Labs Labs: 03/16/17 11:22 03/16/17 11:22 PT 10.6 SECONDS (9.7-12.2) 11/24/15 14:10 INR 1.0 11/24/15 14:10 APTT 25 SECONDS (21-34) 11/24/15 14:10 - Constitutional Appears: Non-toxic, No Acute Distress, Chronically Ill - Head Exam Head Exam: ATRAUMATIC, NORMAL INSPECTION - Eye Exam Eye Exam: PERRL - ENT Exam ENT Exam: Mucous Membranes Moist - Neck Exam Additional comments: trach in place, no blood noted - Respiratory Exam Respiratory Exam: Rhonchi, Wheezes - Cardiovascular Exam Cardiovascular Exam: +S1, +S2. absent: Tachycardia - GI/Abdominal Exam GI & Abdominal Exam: Firm, Normal Bowel Sounds Additional comments: PEG in place - Extremities Exam Extremities Exam: Pedal Edema. absent: Tenderness Additional comments: prevalon boots and SCDs noted - Psychiatric Exam Psychiatric exam: Flat Affect Assessment and Plan - Assessment and Plan (Free Text) Assessment: 1. Anoxic brain injury s/p cardiac arrest in 05/2015 no acute changes Pt awake, not alert, no sedation continue current management Stable 2. Respiratory failure 03/18: Duonebs x1 and continue aggressive suctioning for wheezing. Trach collar in place. 03/14: Wheezing overnight, no respiratory distress, SaO2 98% on Trach collar, ordered Duonebs x 1, cont aggressive suctioning, monitor 03/13: Continue aggressive suctioning. Monitor vitals. Afebrile trach collar in place - normal resp pattern. Instructed nursing to resume aggressive suctioning. 02/07: instructed nursing to give guanifesin for thickened secretions 01/12- starting mucinex for secretions 3. Blood at trach site 03/18: Resolved suctioned, no blood noted deeper than opening 4. Urinary Retention Per nursing, not retaining urine Flomax 0.4mg PEG daily Proscar 5mg PEG daily continue Bethanecol 50mg PEG TID- started after persistent retention and found to be effective. monitor I's and O's check bladder scan for residual urine three times weekly Will plan to change condom catheter 5. Sacral Ulcers 03/18: Cont pt care with offloading/cushioning/turning Small area stage II in upper gluteal cleft- pink base Stage II ulcer present on sacrum Continue frequent turning, protective ointment and skin checks. 01/07- wound care saw patient, air mattress adjusted and protective ointment applied to sacrum Continue wound care 6. Constipation 03/18: Per nursing, patient have bowel movements Nursing to record bowel movements Dulcolax 5mg PO Q72 hours prn constipation/no bowel movement 7. CAD (coronary artery disease) s/p cardiac stents on 06/13/15 Cont ASA 81mg via PEG daily Cont Coreg 3.125mg PEG BID Cont Plavix 75mg PO daily 8. Seizures Cont Keppra 500mg PEG BID for seizure prophylaxis Monitor 9. Lower extremity edema 03/18: Lasix given yesterday for edema Cont Lasix via PEG as needed. Improving Monitor 10. UTI WIll plan to change [place] catheter. Patient afebrile Will follow-up urine culture. Started on Ciprofloxacin 250 mg po BID. 03/18: UA: Color Evelia, clarity turbid, protein 2+, blood 1+, Leukocyte Esterase 3+, WBC 22, RBC 7, Triple Phos Crystals high, bacteria many [place] catheter in place CBI discontinued 01/08, baker catheter removed, Condom catheter- voiding yellow/ slightly cloudy urine Monitor 12/30- Triple lumen Baker in place for irrigation, added neosporin to CBI Urine Culture 12/03/16 - Positive Kleb pneumo, sensitive to cipro - resolved. Off antibiotics now 11. Prophylactic measure Pepcid 20 mg PEG BID Lovenox 40mg SC daily SCDs and offloading boots continue to turn and reposition q2h Continue to monitor medication administrations and clinical presentation weekly labs- last drawn 02/09/17 Per dietary will continue tube feeds at the same rate due to nutritional needs Dispo Cont current mgmt Pt stable <Donnell Ying - Last Filed: 03/18/17 18:11> Objective - Vital Signs/Intake and Output Vital Signs (last 24 hours): Temp Pulse Resp BP Pulse Ox 98.2 F 81 20 126/80 100 03/18/17 15:00 03/18/17 15:00 03/18/17 15:00 03/18/17 15:00 03/18/17 15:00 Intake and Output: 03/18/17 03/18/17 06:59 18:59 Intake Total 880 880 Output Total 300 500 Balance 580 380 - Medications Medications: Current Medications Aspirin (Aspirin Chewable) 81 mg PEG DAILY [facility] Last Admin: 03/18/17 09:50 Dose: 81 mg Bethanechol Chloride (Urecholine) 50 mg PEG TID [facility] Last Admin: 03/18/17 13:52 Dose: 50 mg Bisacodyl (Dulcolax) 5 mg PO Q72H PRN PRN Reason: Constipation Carvedilol (Coreg) 3.125 mg PEG BID [facility] Last Admin: 03/18/17 09:50 Dose: 3.125 mg Ciprofloxacin (Cipro) 250 mg PO BID [facility] Clopidogrel Bisulfate (Plavix) 75 mg PEG DAILY [facility] Last Admin: 03/18/17 09:50 Dose: 75 mg Emollient Ointment (Vaseline Oint) 5 gm TOP BID PRN PRN Reason: Dry skin Last Admin: 03/10/17 09:27 Dose: 5 gm Enoxaparin Sodium (Lovenox) 40 mg SC DAILY [facility] Last Admin: 03/18/17 09:50 Dose: 40 mg Famotidine (Pepcid) 20 mg PEG BID [facility] Last Admin: 03/18/17 09:50 Dose: 20 mg Finasteride (Proscar) 5 mg PEG DAILY [facility] Last Admin: 03/18/17 09:51 Dose: 5 mg Levetiracetam (Keppra) 500 mg PEG BID [facility] Last Admin: 03/18/17 09:50 Dose: 500 mg Tamsulosin HCl (Flomax) 0.4 mg PEG DAILY [facility] Last Admin: 03/18/17 09:50 Dose: 0.4 mg - Labs Labs: 03/16/17 11:22 03/16/17 11:22 PT 10.6 SECONDS (9.7-12.2) 11/24/15 14:10 INR 1.0 11/24/15 14:10 APTT 25 SECONDS (21-34) 11/24/15 14:10 Attending/Attestation - Attestation I have personally seen and examined this patient.: Yes I have fully participated in the care of the patient.: Yes I have reviewed all pertinent clinical information, including history, physical exam and plan: Yes Notes (Text): 03/18/17 18:10 Patient was seen and examined at bedside with the resident Continue current management Started on antibiotic for UTI I discussed the plan of care with the resident and I agree with the above history and physical and assessment/plan but the resident.
[2017-03-19] MEDS: levETIRAcetam 100 mg/ml (5ml) Oral Syringe PEG SCH ×2 (09:34→17:46)
[2017-03-19] MEDS: Enoxaparin 40 mg Syringe SC SCH (11:35)
--- NOTE | 2017-03-19 15:09 | CP.PCM.PN ---
<Mee Luciano - Last Filed: 03/19/17 15:02> Subjective - Date & Time of Evaluation Date of Evaluation: 03/19/17 Time of Evaluation: 15:03 - Subjective Subjective: Patient seen and examined at bedside. No acute events per nursing. Patient sounds less congested today. Abdomen appears more distended than yesterday. Continue to await urine culture sensitivity. Objective - Vital Signs/Intake and Output Vital Signs (last 24 hours): Temp Pulse Resp BP Pulse Ox 97.9 F 84 20 117/83 98 03/19/17 08:10 03/19/17 08:10 03/19/17 08:10 03/19/17 08:10 03/19/17 08:10 Intake and Output: 03/19/17 03/19/17 06:59 18:59 Intake Total 1210 480 Output Total 300 300 Balance 910 180 - Medications Medications: Current Medications Aspirin (Aspirin Chewable) 81 mg PEG DAILY [facility] Last Admin: 03/19/17 09:34 Dose: 81 mg Bethanechol Chloride (Urecholine) 50 mg PEG TID [facility] Last Admin: 03/19/17 14:08 Dose: 50 mg Bisacodyl (Dulcolax) 5 mg PO Q72H PRN PRN Reason: Constipation Carvedilol (Coreg) 3.125 mg PEG BID [facility] Last Admin: 03/19/17 09:34 Dose: 3.125 mg Ciprofloxacin (Cipro) 500 mg GT BID [facility] Last Admin: 03/19/17 12:18 Dose: Not Given Clopidogrel Bisulfate (Plavix) 75 mg PEG DAILY [facility] Last Admin: 03/19/17 11:35 Dose: 75 mg Emollient Ointment (Vaseline Oint) 5 gm TOP BID PRN PRN Reason: Dry skin Last Admin: 03/10/17 09:27 Dose: 5 gm Famotidine (Pepcid) 20 mg PEG BID [facility] Last Admin: 03/19/17 09:34 Dose: 20 mg Finasteride (Proscar) 5 mg PEG DAILY [facility] Last Admin: 03/19/17 09:33 Dose: 5 mg Levetiracetam (Keppra) 500 mg PEG BID [facility] Last Admin: 03/19/17 09:34 Dose: 500 mg Tamsulosin HCl (Flomax) 0.4 mg PEG DAILY [facility] Last Admin: 03/19/17 09:33 Dose: 0.4 mg - Labs Labs: 03/16/17 11:22 03/16/17 11:22 PT 10.6 SECONDS (9.7-12.2) 11/24/15 14:10 INR 1.0 11/24/15 14:10 APTT 25 SECONDS (21-34) 11/24/15 14:10 - Constitutional Appears: Non-toxic, No Acute Distress, Chronically Ill - Head Exam Head Exam: ATRAUMATIC, NORMAL INSPECTION, NORMOCEPHALIC - Eye Exam Eye Exam: PERRL - ENT Exam ENT Exam: Mucous Membranes Moist - Neck Exam Additional comments: trach in place, thick secretions present - Respiratory Exam Respiratory Exam: Clear to Ausculation Bilateral, Wheezes. absent: Rales, Rhonchi - Cardiovascular Exam Cardiovascular Exam: +S1, +S2. absent: Tachycardia - GI/Abdominal Exam GI & Abdominal Exam: Distended, Firm, Normal Bowel Sounds. absent: Tenderness Additional comments: PEG in place - Extremities Exam Extremities Exam: Normal Inspection. absent: Tenderness Additional comments: prevalon boots and SCDs in place - Psychiatric Exam Psychiatric exam: Flat Affect Assessment and Plan - Assessment and Plan (Free Text) Assessment: 1. Anoxic brain injury s/p cardiac arrest in 05/2015 no acute changes Pt awake, not alert, no sedation continue current management Stable 2. Respiratory failure 4.: Less congested on exam today. Continue suctioning. 03/18: Duonebs x1 and continue aggressive suctioning for wheezing. Trach collar in place. 03/14: Wheezing overnight, no respiratory distress, SaO2 98% on Trach collar, ordered Duonebs x 1, cont aggressive suctioning, monitor 03/13: Continue aggressive suctioning. Monitor vitals. Afebrile trach collar in place - normal resp pattern. Instructed nursing to resume aggressive suctioning. 02/07: instructed nursing to give guanifesin for thickened secretions 01/12- starting mucinex for secretions 3. Blood at trach site 03/18: Resolved suctioned, no blood noted deeper than opening 4. Urinary Retention Per nursing, not retaining urine Flomax 0.4mg PEG daily Proscar 5mg PEG daily continue Bethanecol 50mg PEG TID- started after persistent retention and found to be effective. monitor I's and O's check bladder scan for residual urine three times weekly Will plan to change condom catheter 5. Sacral Ulcers 03/19: Cont pt care with offloading/cushioning/turning Small area stage II in upper gluteal cleft- pink base Stage II ulcer present on sacrum Continue frequent turning, protective ointment and skin checks. 01/07- wound care saw patient, air mattress adjusted and protective ointment applied to sacrum Continue wound care 6. Constipation 03/19: More distended today today. Per nursing, patient have bowel movements Nursing to record bowel movements Dulcolax 5mg PO Q72 hours prn constipation/no bowel movement 7. CAD (coronary artery disease) s/p cardiac stents on 06/13/15 Cont ASA 81mg via PEG daily Cont Coreg 3.125mg PEG BID Cont Plavix 75mg PO daily 8. Seizures Cont Keppra 500mg PEG BID for seizure prophylaxis Monitor 9. Lower extremity edema Cont Lasix via PEG as needed. Improving Monitor 10. UTI Urine culture: gram negative [place]. Change [place] catheter. Patient afebrile Started on Ciprofloxacin 500 mg po BID. 03/18: UA: Color Evelia, clarity turbid, protein 2+, blood 1+, Leukocyte Esterase 3+, WBC 22, RBC 7, Triple Phos Crystals high, bacteria many [place] catheter in place CBI discontinued 01/08, baker catheter removed, Condom catheter- voiding yellow/ slightly cloudy urine Monitor 12/30- Triple lumen Baker in place for irrigation, added neosporin to CBI Urine Culture 12/03/16 - Positive Kleb pneumo, sensitive to cipro - resolved. Off antibiotics now 11. Prophylactic measure Pepcid 20 mg PEG BID Lovenox 40mg SC daily SCDs and offloading boots continue to turn and reposition q2h Continue to monitor medication administrations and clinical presentation weekly labs- last drawn 02/09/17 Per dietary will continue tube feeds at the same rate due to nutritional needs Dispo Cont current mgmt Pt stable <Donnell Ying - Last Filed: 03/19/17 16:19> Objective - Vital Signs/Intake and Output Vital Signs (last 24 hours): Temp Pulse Resp BP Pulse Ox 97.9 F 84 20 117/83 98 03/19/17 08:10 03/19/17 08:10 03/19/17 08:10 03/19/17 08:10 03/19/17 08:10 Intake and Output: 03/19/17 03/19/17 06:59 18:59 Intake Total 1210 480 Output Total 300 300 Balance 910 180 - Medications Medications: Current Medications Aspirin (Aspirin Chewable) 81 mg PEG DAILY [facility] Last Admin: 03/19/17 09:34 Dose: 81 mg Bethanechol Chloride (Urecholine) 50 mg PEG TID [facility] Last Admin: 03/19/17 14:08 Dose: 50 mg Bisacodyl (Dulcolax) 5 mg PO Q72H PRN PRN Reason: Constipation Carvedilol (Coreg) 3.125 mg PEG BID [facility] Last Admin: 03/19/17 09:34 Dose: 3.125 mg Ciprofloxacin (Cipro) 500 mg GT BID [facility] Last Admin: 03/19/17 12:18 Dose: Not Given Clopidogrel Bisulfate (Plavix) 75 mg PEG DAILY [facility] Last Admin: 03/19/17 11:35 Dose: 75 mg Emollient Ointment (Vaseline Oint) 5 gm TOP BID PRN PRN Reason: Dry skin Last Admin: 03/10/17 09:27 Dose: 5 gm Famotidine (Pepcid) 20 mg PEG BID [facility] Last Admin: 03/19/17 09:34 Dose: 20 mg Finasteride (Proscar) 5 mg PEG DAILY [facility] Last Admin: 03/19/17 09:33 Dose: 5 mg Levetiracetam (Keppra) 500 mg PEG BID [facility] Last Admin: 03/19/17 09:34 Dose: 500 mg Tamsulosin HCl (Flomax) 0.4 mg PEG DAILY [facility] Last Admin: 03/19/17 09:33 Dose: 0.4 mg - Labs Labs: 03/16/17 11:22 03/16/17 11:22 PT 10.6 SECONDS (9.7-12.2) 11/24/15 14:10 INR 1.0 11/24/15 14:10 APTT 25 SECONDS (21-34) 11/24/15 14:10 Attending/Attestation - Attestation I have personally seen and examined this patient.: Yes I have fully participated in the care of the patient.: Yes I have reviewed all pertinent clinical information, including history, physical exam and plan: Yes Notes (Text): 03/19/17 16:17 Patient was seen nad examined at bedside Patient started on abx for UTI Follow up culture result. Continue to turn and position every 2 hours. Local care of trach and PEG site. I discussed the plan of care with the resident and I agree with above history and physical and assessment/plan by the resident.
--- NOTE | 2017-03-20 07:06 | CP.PCM.PN ---
Addendum entered and electronically signed by Mee Luciano DO 03/20/17 14: 12: Urine grew proteus. Original Note: <Mee Luciano - Last Filed: 03/20/17 14:07> Subjective - Date & Time of Evaluation Date of Evaluation: 03/20/17 Time of Evaluation: 07:03 - Subjective Subjective: Patient seen and examined at bedside. Abdomen more distended on exam today. Per nursing, no bowel movement on her shift. Plan to give dose of Lactulose via PEG tube. Patient otherwise appears comfortable. Will continue aggressive suctioning. Objective - Vital Signs/Intake and Output Vital Signs (last 24 hours): Temp Pulse Resp BP Pulse Ox 98 F 70 20 111/75 99 03/20/17 00:06 03/20/17 00:06 03/20/17 00:06 03/20/17 00:06 03/20/17 00:06 Intake and Output: 03/20/17 03/20/17 06:59 18:59 Intake Total 730 Output Total 300 Balance 430 - Medications Medications: Current Medications Aspirin (Aspirin Chewable) 81 mg PEG DAILY [facility] Last Admin: 03/19/17 09:34 Dose: 81 mg Bethanechol Chloride (Urecholine) 50 mg PEG TID [facility] Last Admin: 03/19/17 17:47 Dose: 50 mg Bisacodyl (Dulcolax) 5 mg PO Q72H PRN PRN Reason: Constipation Carvedilol (Coreg) 3.125 mg PEG BID [facility] Last Admin: 03/19/17 17:47 Dose: 3.125 mg Ciprofloxacin (Cipro) 500 mg GT BID [facility] Last Admin: 03/19/17 17:46 Dose: 500 mg Clopidogrel Bisulfate (Plavix) 75 mg PEG DAILY [facility] Last Admin: 03/19/17 11:35 Dose: 75 mg Emollient Ointment (Vaseline Oint) 5 gm TOP BID PRN PRN Reason: Dry skin Last Admin: 03/10/17 09:27 Dose: 5 gm Famotidine (Pepcid) 20 mg PEG BID [facility] Last Admin: 03/19/17 17:46 Dose: 20 mg Finasteride (Proscar) 5 mg PEG DAILY [facility] Last Admin: 03/19/17 09:33 Dose: 5 mg Levetiracetam (Keppra) 500 mg PEG BID [facility] Last Admin: 03/19/17 17:46 Dose: 500 mg Tamsulosin HCl (Flomax) 0.4 mg PEG DAILY [facility] Last Admin: 03/19/17 09:33 Dose: 0.4 mg - Labs Labs: 03/16/17 11:22 03/16/17 11:22 PT 10.6 SECONDS (9.7-12.2) 11/24/15 14:10 INR 1.0 11/24/15 14:10 APTT 25 SECONDS (21-34) 11/24/15 14:10 - Constitutional Appears: Non-toxic, No Acute Distress - Head Exam Head Exam: ATRAUMATIC, NORMAL INSPECTION - Eye Exam Eye Exam: PERRL - ENT Exam ENT Exam: Mucous Membranes Moist Additional comments: thick secretions present - Neck Exam Neck Exam: Normal Inspection Additional comments: trach in place - Respiratory Exam Respiratory Exam: Wheezes - Cardiovascular Exam Cardiovascular Exam: +S1, +S2. absent: Tachycardia - GI/Abdominal Exam GI & Abdominal Exam: Distended, Firm, Normal Bowel Sounds. absent: Guarding, Rigid Additional comments: PEG in place, no discharge or surrounding erythema - Extremities Exam Extremities Exam: Normal Inspection Additional comments: prevalon boots and SCDs in place - Psychiatric Exam Psychiatric exam: Flat Affect - Skin Additional comments: healing sacral ulcer Assessment and Plan - Assessment and Plan (Free Text) Assessment: 1. Anoxic brain injury s/p cardiac arrest in 05/2015 no acute changes Pt awake, not alert, no sedation continue current management Stable 2. Respiratory failure 03/20: Continue with suctioning 03/19: Less congested on exam today. Continue suctioning. 03/18: Duonebs x1 and continue aggressive suctioning for wheezing. Trach collar in place. 03/14: Wheezing overnight, no respiratory distress, SaO2 98% on Trach collar, ordered Duonebs x 1, cont aggressive suctioning, monitor 03/13: Continue aggressive suctioning. Monitor vitals. Afebrile trach collar in place - normal resp pattern. Instructed nursing to resume aggressive suctioning. 02/07: instructed nursing to give guanifesin for thickened secretions 01/12- starting mucinex for secretions 3. Urinary Retention Per nursing, not retaining urine Flomax 0.4mg PEG daily Proscar 5mg PEG daily continue Bethanecol 50mg PEG TID- started after persistent retention and found to be effective. monitor I's and O's check bladder scan for residual urine three times weekly Will plan to change condom catheter 4. Sacral Ulcers 03/20: Cont pt care with offloading/cushioning/turning Small area stage II in upper gluteal cleft- pink base Stage II ulcer present on sacrum Continue frequent turning, protective ointment and skin checks. 01/07- wound care saw patient, air mattress adjusted and protective ointment applied to sacrum Continue wound care 5. Constipation 03/20: More distended on exam and no BM per nurse. Lactulose given once. Nursing to record bowel movements Dulcolax 5mg PO Q72 hours prn constipation/no bowel movement 6. CAD (coronary artery disease) s/p cardiac stents on 06/13/15 Cont ASA 81mg via PEG daily Cont Coreg 3.125mg PEG BID Cont Plavix 75mg PO daily 7. Seizures Cont Keppra 500mg PEG BID for seizure prophylaxis Monitor 8. Lower extremity edema Cont Lasix via PEG as needed. Improving Monitor 9. UTI Urine culture: gram negative patsy. Awaiting sensitivities Change [place] catheter. Patient afebrile Started on Ciprofloxacin 500 mg po BID. 03/18: UA: Color Evelia, clarity turbid, protein 2+, blood 1+, Leukocyte Esterase 3+, WBC 22, RBC 7, Triple Phos Crystals high, bacteria many [place] catheter in place CBI discontinued 01/08, baker catheter removed, Condom catheter- voiding yellow/ slightly cloudy urine Monitor 12/30- Triple lumen Baker in place for irrigation, added neosporin to CBI Urine Culture 12/03/16 - Positive Kleb pneumo, sensitive to cipro - resolved. Off antibiotics now 10. Prophylactic measure Pepcid 20 mg PEG BID Lovenox 40mg SC daily SCDs and offloading boots continue to turn and reposition q2h Continue to monitor medication administrations and clinical presentation weekly labs- last drawn 02/09/17 Per dietary will continue tube feeds at the same rate due to nutritional needs Dispo Cont current mgmt Pt stable <Donnell Ying - Last Filed: 03/20/17 16:33> Objective - Vital Signs/Intake and Output Vital Signs (last 24 hours): Temp Pulse Resp BP Pulse Ox 98.6 F 89 20 108/65 100 03/20/17 07:40 03/20/17 07:40 03/20/17 07:40 03/20/17 07:40 03/20/17 07:40 Intake and Output: 03/20/17 03/20/17 06:59 18:59 Intake Total 730 1160 Output Total 300 700 Balance 430 460 - Medications Medications: Current Medications Aspirin (Aspirin Chewable) 81 mg PEG DAILY [facility] Last Admin: 03/20/17 10:50 Dose: 81 mg Bethanechol Chloride (Urecholine) 50 mg PEG TID [facility] Last Admin: 03/20/17 13:41 Dose: 50 mg Bisacodyl (Dulcolax) 5 mg PO Q72H PRN PRN Reason: Constipation Last Admin: 03/20/17 10:57 Dose: 5 mg Carvedilol (Coreg) 3.125 mg PEG BID [facility] Last Admin: 03/20/17 10:51 Dose: 3.125 mg Ciprofloxacin (Cipro) 500 mg GT BID [facility] Last Admin: 03/20/17 10:52 Dose: 500 mg Clopidogrel Bisulfate (Plavix) 75 mg PEG DAILY [facility] Last Admin: 03/20/17 10:51 Dose: 75 mg Emollient Ointment (Vaseline Oint) 5 gm TOP BID PRN PRN Reason: Dry skin Last Admin: 03/20/17 13:41 Dose: 5 gm Famotidine (Pepcid) 20 mg PEG BID [facility] Last Admin: 03/20/17 10:51 Dose: 20 mg Finasteride (Proscar) 5 mg PEG DAILY [facility] Last Admin: 03/20/17 10:51 Dose: 5 mg Levetiracetam (Keppra) 500 mg PEG BID [facility] Last Admin: 03/20/17 10:50 Dose: 500 mg Tamsulosin HCl (Flomax) 0.4 mg PEG DAILY [facility] Last Admin: 03/20/17 10:51 Dose: 0.4 mg - Labs Labs: 03/16/17 11:22 03/16/17 11:22 PT 10.6 SECONDS (9.7-12.2) 11/24/15 14:10 INR 1.0 11/24/15 14:10 APTT 25 SECONDS (21-34) 11/24/15 14:10 Attending/Attestation - Attestation I have personally seen and examined this patient.: Yes I have fully participated in the care of the patient.: Yes I have reviewed all pertinent clinical information, including history, physical exam and plan: Yes Notes (Text): 03/20/17 16:33 Patient was seen and examined at bedside with the resident Start antibiotic for UTI I discussed the plan of care with the resident and agree with the above history and physical and assessment/plan by the resident
[2017-03-20] MEDS: levETIRAcetam 100 mg/ml (5ml) Oral Syringe PEG SCH ×2 (10:50→18:31)
[2017-03-20] MEDS: Petrolatum Oint Foilpak (5 gm) TOP PRN (13:41)
[2017-03-20] MEDS: Meropenem 1 GM in Sodium Chloride 0.9% 100 ML IVPB SCH (19:29)
[2017-03-21] MEDS: Meropenem 1 GM in Sodium Chloride 0.9% 100 ML IVPB SCH ×3 (03:23→18:04)
--- NOTE | 2017-03-21 08:49 | CP.PCM.PN ---
<AnkitaMee - Last Filed: 03/21/17 09:48> Subjective - Date & Time of Evaluation Date of Evaluation: 03/21/17 Time of Evaluation: 08:46 - Subjective Subjective: Patient seen and examined at bedside. Per nursing, patient had bowel movement yesterday. Urine culture resulted positive for Proteus Mirabilis and patient started on Meropenem. Currently afebrile. Full review of system unable to be obtained due to anoxic brain injury. Objective - Vital Signs/Intake and Output Vital Signs (last 24 hours): Temp Pulse Resp BP Pulse Ox 98.8 F 83 20 128/89 100 03/21/17 07:48 03/21/17 07:48 03/21/17 07:48 03/21/17 07:48 03/21/17 07:48 Intake and Output: 03/21/17 03/21/17 06:59 18:59 Intake Total 1760 Output Total 550 Balance 1210 - Medications Medications: Current Medications Aspirin (Aspirin Chewable) 81 mg PEG DAILY [facility] Last Admin: 03/20/17 10:50 Dose: 81 mg Bethanechol Chloride (Urecholine) 50 mg PEG TID [facility] Last Admin: 03/20/17 18:31 Dose: 50 mg Bisacodyl (Dulcolax) 5 mg PO Q72H PRN PRN Reason: Constipation Last Admin: 03/20/17 10:57 Dose: 5 mg Carvedilol (Coreg) 3.125 mg PEG BID [facility] Last Admin: 03/20/17 18:32 Dose: 3.125 mg Ciprofloxacin (Cipro) 500 mg GT BID [facility] Last Admin: 03/20/17 18:32 Dose: 500 mg Clopidogrel Bisulfate (Plavix) 75 mg PEG DAILY [facility] Last Admin: 03/20/17 10:51 Dose: 75 mg Emollient Ointment (Vaseline Oint) 5 gm TOP BID PRN PRN Reason: Dry skin Last Admin: 03/20/17 13:41 Dose: 5 gm Famotidine (Pepcid) 20 mg PEG BID [facility] Last Admin: 03/20/17 18:32 Dose: 20 mg Finasteride (Proscar) 5 mg PEG DAILY [facility] Last Admin: 03/20/17 10:51 Dose: 5 mg Meropenem 1 gm/ Sodium (Chloride) 100 mls @ 200 mls/hr IVPB Q8H [facility] Last Admin: 03/21/17 03:23 Dose: 200 mls/hr Levetiracetam (Keppra) 500 mg PEG BID [facility] Last Admin: 03/20/17 18:31 Dose: 500 mg Tamsulosin HCl (Flomax) 0.4 mg PEG DAILY [facility] Last Admin: 03/20/17 10:51 Dose: 0.4 mg - Labs Labs: 03/16/17 11:22 03/16/17 11:22 PT 10.6 SECONDS (9.7-12.2) 11/24/15 14:10 INR 1.0 11/24/15 14:10 APTT 25 SECONDS (21-34) 11/24/15 14:10 - Constitutional Appears: Non-toxic, No Acute Distress - Head Exam Head Exam: ATRAUMATIC, NORMAL INSPECTION, NORMOCEPHALIC - Eye Exam Eye Exam: Normal appearance - ENT Exam ENT Exam: Mucous Membranes Moist - Neck Exam Additional comments: trach in place - Respiratory Exam Respiratory Exam: Clear to Ausculation Bilateral, NORMAL BREATHING PATTERN - Cardiovascular Exam Cardiovascular Exam: +S1, +S2. absent: Tachycardia - GI/Abdominal Exam GI & Abdominal Exam: Soft, Normal Bowel Sounds Additional comments: PEG in place - Extremities Exam Extremities Exam: absent: Tenderness Additional comments: prevalon boots and SCDs in place - Neurological Exam Additional comments: anoxic brain injury - Psychiatric Exam Psychiatric exam: Flat Affect Assessment and Plan - Assessment and Plan (Free Text) Assessment: 1. Anoxic brain injury s/p cardiac arrest in 05/2015 no acute changes Pt awake, not alert, no sedation continue current management Stable 2. Respiratory failure 03/21: Continue with suctioning 03/19: Less congested on exam today. Continue suctioning. 03/18: Duonebs x1 and continue aggressive suctioning for wheezing. Trach collar in place. 03/14: Wheezing overnight, no respiratory distress, SaO2 98% on Trach collar, ordered Duonebs x 1, cont aggressive suctioning, monitor 03/13: Continue aggressive suctioning. Monitor vitals. Afebrile trach collar in place - normal resp pattern. Instructed nursing to resume aggressive suctioning. 02/07: instructed nursing to give guanifesin for thickened secretions 01/12- starting mucinex for secretions 3. Urinary Retention Per nursing, not retaining urine Flomax 0.4mg PEG daily Proscar 5mg PEG daily continue Bethanecol 50mg PEG TID- started after persistent retention and found to be effective. monitor I's and O's check bladder scan for residual urine three times weekly Will plan to change condom catheter 4. Sacral Ulcers 03/21: Cont pt care with offloading/cushioning/turning Small area stage II in upper gluteal cleft- pink base Stage II ulcer present on sacrum Continue frequent turning, protective ointment and skin checks. 01/07- wound care saw patient, air mattress adjusted and protective ointment applied to sacrum Continue wound care 5. Constipation 03/21: Per nursing, patient had bowel movement yesterday. 03/20: More distended on exam and no BM per nurse. Lactulose given once. Nursing to record bowel movements Dulcolax 5mg PO Q72 hours prn constipation/no bowel movement 6. CAD (coronary artery disease) s/p cardiac stents on 06/13/15 Cont ASA 81mg via PEG daily Cont Coreg 3.125mg PEG BID Cont Plavix 75mg PO daily 7. Seizures Cont Keppra 500mg PEG BID for seizure prophylaxis Monitor 8. Lower extremity edema Cont Lasix via PEG as needed. Improving Monitor 9. UTI Urine culture: positive for Proteus Mirabilis. Results discussed with ID, Dr. Armsrtong. Started on Meropenem 1 gm IVPB Q8H. Patient afebrile. Change [place] catheter. Patient afebrile Started on Ciprofloxacin 500 mg po BID. 03/18: UA: Color Evelia, clarity turbid, protein 2+, blood 1+, Leukocyte Esterase 3+, WBC 22, RBC 7, Triple Phos Crystals high, bacteria many [place] catheter in place CBI discontinued 01/08, baker catheter removed, Condom catheter- voiding yellow/ slightly cloudy urine Monitor 12/30- Triple lumen Baker in place for irrigation, added neosporin to CBI Urine Culture 12/03/16 - Positive Kleb pneumo, sensitive to cipro - resolved. Off antibiotics now 10. Prophylactic measure Pepcid 20 mg PEG BID Lovenox 40mg SC daily SCDs and offloading boots continue to turn and reposition q2h Continue to monitor medication administrations and clinical presentation weekly labs- last drawn 02/09/17 Per dietary will continue tube feeds at the same rate due to nutritional needs Dispo Cont current mgmt Pt stable <Stepan,Donnell M - Last Filed: 03/21/17 15:23> Objective - Vital Signs/Intake and Output Vital Signs (last 24 hours): Temp Pulse Resp BP Pulse Ox 98.8 F 83 20 128/89 100 03/21/17 07:48 03/21/17 07:48 03/21/17 07:48 03/21/17 07:48 03/21/17 07:48 Intake and Output: 03/21/17 03/21/17 06:59 18:59 Intake Total 1760 Output Total 550 200 Balance 1210 -200 - Medications Medications: Current Medications Aspirin (Aspirin Chewable) 81 mg PEG DAILY [facility] Last Admin: 03/21/17 10:23 Dose: 81 mg Bethanechol Chloride (Urecholine) 50 mg PEG TID [facility] Last Admin: 03/21/17 14:24 Dose: 50 mg Bisacodyl (Dulcolax) 5 mg PO Q72H PRN PRN Reason: Constipation Last Admin: 03/20/17 10:57 Dose: 5 mg Carvedilol (Coreg) 3.125 mg PEG BID [facility] Last Admin: 03/21/17 10:24 Dose: 3.125 mg Ciprofloxacin (Cipro) 500 mg GT BID [facility] Last Admin: 03/21/17 10:23 Dose: 500 mg Clopidogrel Bisulfate (Plavix) 75 mg PEG DAILY [facility] Last Admin: 03/21/17 10:24 Dose: 75 mg Emollient Ointment (Vaseline Oint) 5 gm TOP BID PRN PRN Reason: Dry skin Last Admin: 03/20/17 13:41 Dose: 5 gm Famotidine (Pepcid) 20 mg PEG BID [facility] Last Admin: 03/21/17 10:24 Dose: 20 mg Finasteride (Proscar) 5 mg PEG DAILY [facility] Last Admin: 03/21/17 10:23 Dose: 5 mg Meropenem 1 gm/ Sodium (Chloride) 100 mls @ 200 mls/hr IVPB Q8H [facility] Last Admin: 03/21/17 10:39 Dose: 200 mls/hr Levetiracetam (Keppra) 500 mg PEG BID [facility] Last Admin: 03/21/17 10:24 Dose: 500 mg Tamsulosin HCl (Flomax) 0.4 mg PEG DAILY [facility] Last Admin: 03/21/17 10:23 Dose: 0.4 mg - Labs Labs: 03/16/17 11:22 03/16/17 11:22 PT 10.6 SECONDS (9.7-12.2) 11/24/15 14:10 INR 1.0 11/24/15 14:10 APTT 25 SECONDS (21-34) 11/24/15 14:10 Attending/Attestation - Attestation I have personally seen and examined this patient.: Yes I have fully participated in the care of the patient.: Yes I have reviewed all pertinent clinical information, including history, physical exam and plan: Yes Notes (Text): 03/21/17 15:22 Patient was seen and examined at bedside. There is no change in clinical condition. Continue current management. Turn and position every 2 hours to prevent decubitus ulcers. Continue local care of tracheostomy and PEG site. I discussed the plan of care with the resident and agree with the above history and physical and assessment/plan.
[2017-03-21] MEDS: levETIRAcetam 100 mg/ml (5ml) Oral Syringe PEG SCH ×2 (10:24→18:05)
[2017-03-22] MEDS: Meropenem 1 GM in Sodium Chloride 0.9% 100 ML IVPB SCH ×3 (02:18→18:02)
--- NOTE | 2017-03-22 02:58 | CP.PCM.PN ---
<Marcus Yip - Last Filed: 03/22/17 02:43> Subjective - Date & Time of Evaluation Date of Evaluation: 03/22/17 Time of Evaluation: 02:43 - Subjective Subjective: PGY-1 Medicine Progress Note for Dr. Ying Patient seen and examined at bedside. Noacute event overnight. Urine culture resulted positive for Proteus Mirabilis. Blood culture came back negative. Patient is on Meropenem for UTI. ROS unable to be obtained due to anoxic brain injury. Objective - Vital Signs/Intake and Output Vital Signs (last 24 hours): Temp Pulse Resp BP Pulse Ox 98 F 77 20 115/70 99 03/21/17 23:54 03/21/17 23:54 03/21/17 23:54 03/21/17 23:54 03/21/17 23:54 Intake and Output: 03/21/17 03/22/17 18:59 06:59 Intake Total 980 780 Output Total 200 200 Balance 780 580 - Medications Medications: Current Medications Aspirin (Aspirin Chewable) 81 mg PEG DAILY [facility] Last Admin: 03/21/17 10:23 Dose: 81 mg Bethanechol Chloride (Urecholine) 50 mg PEG TID [facility] Last Admin: 03/21/17 18:05 Dose: 50 mg Bisacodyl (Dulcolax) 5 mg PO Q72H PRN PRN Reason: Constipation Last Admin: 03/20/17 10:57 Dose: 5 mg Carvedilol (Coreg) 3.125 mg PEG BID [facility] Last Admin: 03/21/17 18:05 Dose: 3.125 mg Ciprofloxacin (Cipro) 500 mg GT BID [facility] Last Admin: 03/21/17 18:05 Dose: 500 mg Clopidogrel Bisulfate (Plavix) 75 mg PEG DAILY [facility] Last Admin: 03/21/17 10:24 Dose: 75 mg Emollient Ointment (Vaseline Oint) 5 gm TOP BID PRN PRN Reason: Dry skin Last Admin: 03/20/17 13:41 Dose: 5 gm Famotidine (Pepcid) 20 mg PEG BID [facility] Last Admin: 03/21/17 18:06 Dose: 20 mg Finasteride (Proscar) 5 mg PEG DAILY [facility] Last Admin: 03/21/17 10:23 Dose: 5 mg Meropenem 1 gm/ Sodium (Chloride) 100 mls @ 200 mls/hr IVPB Q8H [facility] Last Admin: 03/22/17 02:18 Dose: 200 mls/hr Levetiracetam (Keppra) 500 mg PEG BID [facility] Last Admin: 03/21/17 18:05 Dose: 500 mg Tamsulosin HCl (Flomax) 0.4 mg PEG DAILY [facility] Last Admin: 03/21/17 10:23 Dose: 0.4 mg - Labs Labs: 03/16/17 11:22 03/16/17 11:22 PT 10.6 SECONDS (9.7-12.2) 11/24/15 14:10 INR 1.0 11/24/15 14:10 APTT 25 SECONDS (21-34) 11/24/15 14:10 - Constitutional Appears: No Acute Distress - Head Exam Head Exam: ATRAUMATIC, NORMOCEPHALIC - Eye Exam Eye Exam: Normal appearance - ENT Exam ENT Exam: Mucous Membranes Moist - Neck Exam Additional comments: trach in place - Respiratory Exam Respiratory Exam: Clear to Ausculation Bilateral, NORMAL BREATHING PATTERN - Cardiovascular Exam Cardiovascular Exam: +S1, +S2. absent: Tachycardia - GI/Abdominal Exam GI & Abdominal Exam: Soft, Normal Bowel Sounds Additional comments: PEG tube in place and functioning properly - Extremities Exam Additional comments: prevalon boots and SCDs in place - Neurological Exam Neurological Exam: absent: Alert, Awake, Oriented x3 Additional comments: anoxic brain injury - Psychiatric Exam Psychiatric exam: Flat Affect - Skin Skin Exam: Dry, Normal Color Assessment and Plan - Assessment and Plan (Free Text) Plan: 1. UTI Urine culture: positive for Proteus Mirabilis. Results discussed with ID, Dr. Armstrong. Started on Meropenem 1 gm IVPB Q8H. Patient afebrile. Change [place] catheter. Started on Ciprofloxacin 500 mg po BID. 03/18: UA: Color Evelia, clarity turbid, protein 2+, blood 1+, Leukocyte Esterase 3+, WBC 22, RBC 7, Triple Phos Crystals high, bacteria many [place] catheter in place CBI discontinued 01/08, baker catheter removed, Condom catheter- voiding yellow/ slightly cloudy urine Monitor 12/30- Triple lumen Baker in place for irrigation, added neosporin to CBI Urine Culture 12/03/16 - Positive Kleb pneumo, sensitive to cipro - resolved. Off antibiotics now 2. Anoxic brain injury s/p cardiac arrest in 05/2015 no acute changes Pt awake, not alert, no sedation continue current management Stable 3. Respiratory failure 03/22: Continue with suctioning 03/19: Less congested on exam today. Continue suctioning. 03/18: Duonebs x1 and continue aggressive suctioning for wheezing. Trach collar in place. 03/14: Wheezing overnight, no respiratory distress, SaO2 98% on Trach collar, ordered Duonebs x 1, cont aggressive suctioning, monitor 03/13: Continue aggressive suctioning. Monitor vitals. Afebrile trach collar in place - normal resp pattern. Instructed nursing to resume aggressive suctioning. 02/07: instructed nursing to give guanifesin for thickened secretions 01/12- starting mucinex for secretions 4. Urinary Retention Per nursing, not retaining urine Flomax 0.4mg PEG daily Proscar 5mg PEG daily continue Bethanecol 50mg PEG TID- started after persistent retention and found to be effective. monitor I's and O's check bladder scan for residual urine three times weekly Will plan to change condom catheter 5. Sacral Ulcers 03/22: Cont pt care with offloading/cushioning/turning Small area stage II in upper gluteal cleft- pink base Stage II ulcer present on sacrum Continue frequent turning, protective ointment and skin checks. 01/07- wound care saw patient, air mattress adjusted and protective ointment applied to sacrum Continue wound care 6. Constipation 03/21: Per nursing, patient had bowel movement yesterday. 03/20: More distended on exam and no BM per nurse. Lactulose given once. Nursing to record bowel movements Dulcolax 5mg PO Q72 hours prn constipation/no bowel movement 7. CAD (coronary artery disease) s/p cardiac stents on 06/13/15 Cont ASA 81mg via PEG daily Cont Coreg 3.125mg PEG BID Cont Plavix 75mg PO daily 8. Seizures Cont Keppra 500mg PEG BID for seizure prophylaxis Monitor 9. Lower extremity edema Cont Lasix via PEG as needed. Improving Monitor 10. Prophylactic measure Pepcid 20 mg PEG BID Lovenox 40mg SC daily SCDs and offloading boots continue to turn and reposition q2h Continue to monitor medication administrations and clinical presentation weekly labs- last drawn 02/09/17 Per dietary will continue tube feeds at the same rate due to nutritional need <Donnell Ying - Last Filed: 03/22/17 15:27> Objective - Vital Signs/Intake and Output Vital Signs (last 24 hours): Temp Pulse Resp BP Pulse Ox 97.9 F 82 20 110/69 97 03/22/17 09:04 03/22/17 09:04 03/22/17 09:04 03/22/17 09:04 03/22/17 09:04 Intake and Output: 03/22/17 03/22/17 06:59 18:59 Intake Total 780 780 Output Total 200 800 Balance 580 -20 - Medications Medications: Current Medications Aspirin (Aspirin Chewable) 81 mg PEG DAILY [facility] Last Admin: 03/22/17 10:00 Dose: 81 mg Bethanechol Chloride (Urecholine) 50 mg PEG TID [facility] Last Admin: 03/22/17 14:41 Dose: 50 mg Bisacodyl (Dulcolax) 5 mg PO Q72H PRN PRN Reason: Constipation Last Admin: 03/20/17 10:57 Dose: 5 mg Carvedilol (Coreg) 3.125 mg PEG BID [facility] Last Admin: 03/22/17 10:02 Dose: 3.125 mg Clopidogrel Bisulfate (Plavix) 75 mg PEG DAILY [facility] Last Admin: 03/22/17 10:01 Dose: 75 mg Emollient Ointment (Vaseline Oint) 5 gm TOP BID PRN PRN Reason: Dry skin Last Admin: 03/20/17 13:41 Dose: 5 gm Enoxaparin Sodium (Lovenox) 40 mg SC DAILY [facility] Last Admin: 03/22/17 11:51 Dose: 40 mg Famotidine (Pepcid) 20 mg PEG BID [facility] Last Admin: 03/22/17 10:02 Dose: 20 mg Finasteride (Proscar) 5 mg PEG DAILY [facility] Last Admin: 03/22/17 10:01 Dose: 5 mg Meropenem 1 gm/ Sodium (Chloride) 100 mls @ 200 mls/hr IVPB Q8H [facility] Last Admin: 03/22/17 10:09 Dose: 200 mls/hr Levetiracetam (Keppra) 500 mg PEG BID [facility] Last Admin: 03/22/17 10:00 Dose: 500 mg Tamsulosin HCl (Flomax) 0.4 mg PEG DAILY [facility] Last Admin: 03/22/17 10:00 Dose: 0.4 mg - Labs Labs: 03/16/17 11:22 03/16/17 11:22 PT 10.6 SECONDS (9.7-12.2) 11/24/15 14:10 INR 1.0 11/24/15 14:10 APTT 25 SECONDS (21-34) 11/24/15 14:10 Attending/Attestation - Attestation I have personally seen and examined this patient.: Yes I have fully participated in the care of the patient.: Yes I have reviewed all pertinent clinical information, including history, physical exam and plan: Yes Notes (Text): 03/22/17 15:27 Patient was seen and examined at bedside Urine cultures noted. Patient started on Primaxin ID evaluation seen in appreciated Continue current medical management Turn and position patient every 2 hours to prevent decubitus ulcers Continue local care of the tracheostomy site and the PEG site Discussed with the nursing staff I agree with the above history and physical and assessment/plan by the resident.
[2017-03-22] MEDS: levETIRAcetam 100 mg/ml (5ml) Oral Syringe PEG SCH ×2 (10:00→18:02)
[2017-03-22] MEDS: Enoxaparin 40 mg Syringe SC SCH (11:51)
[2017-03-23] MEDS: Meropenem 1 GM in Sodium Chloride 0.9% 100 ML IVPB SCH ×3 (03:36→19:00)
[2017-03-23] MEDS: levETIRAcetam 100 mg/ml (5ml) Oral Syringe PEG SCH ×2 (10:46→17:51)
[2017-03-23] MEDS: Enoxaparin 40 mg Syringe SC SCH (11:02)
--- NOTE | 2017-03-23 11:51 | CP.PCM.PN ---
<AnkitaMee - Last Filed: 03/23/17 16:31> Subjective - Date & Time of Evaluation Date of Evaluation: 03/23/17 Time of Evaluation: 11:51 - Subjective Subjective: Patient seen and examined at bedside. No acute events overnight. Patient continues on Meropenem for Proteus in urine. Currently afebrile. Review of systems unable to be obtained due to anoxic brain injury. Objective - Vital Signs/Intake and Output Vital Signs (last 24 hours): Temp Pulse Resp BP Pulse Ox 97.7 F 100 H 20 102/69 100 03/23/17 08:01 03/23/17 08:01 03/23/17 08:01 03/23/17 08:01 03/23/17 08:01 Intake and Output: 03/23/17 03/23/17 06:59 18:59 Intake Total 980 Output Total 300 Balance 680 - Medications Medications: Current Medications Aspirin (Aspirin Chewable) 81 mg PEG DAILY [facility] Last Admin: 03/23/17 10:54 Dose: 81 mg Bethanechol Chloride (Urecholine) 50 mg PEG TID [facility] Last Admin: 03/23/17 10:54 Dose: 50 mg Bisacodyl (Dulcolax) 5 mg PO Q72H PRN PRN Reason: Constipation Last Admin: 03/20/17 10:57 Dose: 5 mg Carvedilol (Coreg) 3.125 mg PEG BID [facility] Last Admin: 03/23/17 10:54 Dose: 3.125 mg Clopidogrel Bisulfate (Plavix) 75 mg PEG DAILY [facility] Last Admin: 03/23/17 10:54 Dose: 75 mg Emollient Ointment (Vaseline Oint) 5 gm TOP BID PRN PRN Reason: Dry skin Last Admin: 03/20/17 13:41 Dose: 5 gm Enoxaparin Sodium (Lovenox) 40 mg SC DAILY [facility] Last Admin: 03/23/17 11:02 Dose: 40 mg Famotidine (Pepcid) 20 mg PEG BID [facility] Last Admin: 03/23/17 11:01 Dose: 20 mg Finasteride (Proscar) 5 mg PEG DAILY [facility] Last Admin: 03/23/17 10:54 Dose: 5 mg Meropenem 1 gm/ Sodium (Chloride) 100 mls @ 200 mls/hr IVPB Q8H [facility] Last Admin: 03/23/17 11:14 Dose: 200 mls/hr Levetiracetam (Keppra) 500 mg PEG BID [facility] Last Admin: 03/23/17 10:46 Dose: 500 mg Tamsulosin HCl (Flomax) 0.4 mg PEG DAILY [facility] Last Admin: 03/23/17 11:01 Dose: 0.4 mg - Labs Labs: 03/16/17 11:22 03/16/17 11:22 PT 10.6 SECONDS (9.7-12.2) 11/24/15 14:10 INR 1.0 11/24/15 14:10 APTT 25 SECONDS (21-34) 11/24/15 14:10 - Constitutional Appears: No Acute Distress, Chronically Ill - Head Exam Head Exam: ATRAUMATIC, NORMAL INSPECTION, NORMOCEPHALIC - Eye Exam Eye Exam: PERRL - ENT Exam ENT Exam: Mucous Membranes Moist - Neck Exam Additional comments: trach in place - Respiratory Exam Respiratory Exam: Clear to Ausculation Bilateral, NORMAL BREATHING PATTERN. absent: Rales, Rhonchi, Wheezes - Cardiovascular Exam Cardiovascular Exam: +S1, +S2. absent: Tachycardia - GI/Abdominal Exam GI & Abdominal Exam: Soft, Normal Bowel Sounds. absent: Tenderness Additional comments: PEG in place - Extremities Exam Extremities Exam: Normal Inspection. absent: Pedal Edema, Tenderness - Neurological Exam Additional comments: anoxic brain injury - not responsive to voice , does not track with his eyes - Psychiatric Exam Psychiatric exam: Flat Affect - Skin Skin Exam: Normal Color, Warm Assessment and Plan - Assessment and Plan (Free Text) Assessment: 1. UTI 03/23: Continue Meropenem 1 gm IVPB Q8H. Blood culture preliminary negative for growth. Urine culture: positive for Proteus Mirabilis. Results discussed with ID, Dr. Armstrong. Started on Meropenem 1 gm IVPB Q8H. Patient afebrile. Change [place] catheter. Started on Ciprofloxacin 500 mg po BID. 03/18: UA: Color Evelia, clarity turbid, protein 2+, blood 1+, Leukocyte Esterase 3+, WBC 22, RBC 7, Triple Phos Crystals high, bacteria many [place] catheter in place CBI discontinued 01/08, baker catheter removed, Condom catheter- voiding yellow/ slightly cloudy urine Monitor 12/30- Triple lumen Baker in place for irrigation, added neosporin to CBI Urine Culture 12/03/16 - Positive Kleb pneumo, sensitive to cipro - resolved. Off antibiotics now 2. Anoxic brain injury s/p cardiac arrest in 05/2015 no acute changes Pt awake, not alert, no sedation continue current management Stable 3. Respiratory failure 03/23: Continue with aggressive suctioning. 03/22: Continue with suctioning 03/19: Less congested on exam today. Continue suctioning. 03/18: Duonebs x1 and continue aggressive suctioning for wheezing. Trach collar in place. 03/14: Wheezing overnight, no respiratory distress, SaO2 98% on Trach collar, ordered Duonebs x 1, cont aggressive suctioning, monitor 03/13: Continue aggressive suctioning. Monitor vitals. Afebrile trach collar in place - normal resp pattern. Instructed nursing to resume aggressive suctioning. 02/07: instructed nursing to give guanifesin for thickened secretions 01/12- starting mucinex for secretions 4. Urinary Retention Per nursing, not retaining urine Flomax 0.4mg PEG daily Proscar 5mg PEG daily continue Bethanecol 50mg PEG TID- started after persistent retention and found to be effective. monitor I's and O's check bladder scan for residual urine three times weekly Will plan to change condom catheter 5. Sacral Ulcers 03/23: Cont pt care with offloading/cushioning/turning Small area stage II in upper gluteal cleft- pink base Stage II ulcer present on sacrum Continue frequent turning, protective ointment and skin checks. 01/07- wound care saw patient, air mattress adjusted and protective ointment applied to sacrum Continue wound care 6. Constipation 03/23: Monitor for constipation 03/21: Per nursing, patient had bowel movement yesterday. 03/20: More distended on exam and no BM per nurse. Lactulose given once. Nursing to record bowel movements Dulcolax 5mg PO Q72 hours prn constipation/no bowel movement 7. CAD (coronary artery disease) s/p cardiac stents on 06/13/15 Cont ASA 81mg via PEG daily Cont Coreg 3.125mg PEG BID Cont Plavix 75mg PO daily 8. Seizures Cont Keppra 500mg PEG BID for seizure prophylaxis Monitor 9. Lower extremity edema Cont Lasix via PEG as needed. Improving Monitor 10. Prophylactic measure Pepcid 20 mg PEG BID Lovenox 40mg SC daily SCDs and offloading boots continue to turn and reposition q2h Continue to monitor medication administrations and clinical presentation weekly labs- last drawn 02/09/17 Per dietary will continue tube feeds at the same rate due to nutritional need <Amandeep Chavis H - Last Filed: 03/23/17 16:59> Objective - Vital Signs/Intake and Output Vital Signs (last 24 hours): Temp Pulse Resp BP Pulse Ox 98.9 F 73 20 127/76 100 03/23/17 15:00 03/23/17 15:00 03/23/17 15:00 03/23/17 15:00 03/23/17 15:00 Intake and Output: 03/23/17 03/23/17 06:59 18:59 Intake Total 980 680 Output Total 300 380 Balance 680 300 - Medications Medications: Current Medications Aspirin (Aspirin Chewable) 81 mg PEG DAILY [facility] Last Admin: 03/23/17 10:54 Dose: 81 mg Bethanechol Chloride (Urecholine) 50 mg PEG TID [facility] Last Admin: 03/23/17 14:58 Dose: 50 mg Bisacodyl (Dulcolax) 5 mg PO Q72H PRN PRN Reason: Constipation Last Admin: 03/20/17 10:57 Dose: 5 mg Carvedilol (Coreg) 3.125 mg PEG BID [facility] Last Admin: 03/23/17 10:54 Dose: 3.125 mg Clopidogrel Bisulfate (Plavix) 75 mg PEG DAILY [facility] Last Admin: 03/23/17 10:54 Dose: 75 mg Emollient Ointment (Vaseline Oint) 5 gm TOP BID PRN PRN Reason: Dry skin Last Admin: 03/20/17 13:41 Dose: 5 gm Enoxaparin Sodium (Lovenox) 40 mg SC DAILY [facility] Last Admin: 03/23/17 11:02 Dose: 40 mg Famotidine (Pepcid) 20 mg PEG BID [facility] Last Admin: 03/23/17 11:01 Dose: 20 mg Finasteride (Proscar) 5 mg PEG DAILY [facility] Last Admin: 03/23/17 10:54 Dose: 5 mg Meropenem 1 gm/ Sodium (Chloride) 100 mls @ 200 mls/hr IVPB Q8H [facility] Last Admin: 03/23/17 11:14 Dose: 200 mls/hr Levetiracetam (Keppra) 500 mg PEG BID [facility] Last Admin: 03/23/17 10:46 Dose: 500 mg Tamsulosin HCl (Flomax) 0.4 mg PEG DAILY [facility] Last Admin: 03/23/17 11:01 Dose: 0.4 mg - Labs Labs: 03/16/17 11:22 03/16/17 11:22 PT 10.6 SECONDS (9.7-12.2) 11/24/15 14:10 INR 1.0 11/24/15 14:10 APTT 25 SECONDS (21-34) 11/24/15 14:10 Assessment and Plan (1) Prophylactic measure Status: Acute (2) Anoxic encephalopathy Status: Acute (3) STEMI (ST elevation myocardial infarction) Status: Acute (4) Cardiac arrest Status: Acute (5) Seizures Status: Acute (6) Respiratory failure Status: Acute Attending/Attestation - Attestation I have personally seen and examined this patient.: Yes I have fully participated in the care of the patient.: Yes I have reviewed all pertinent clinical information, including history, physical exam and plan: Yes Notes (Text): 03/23/17 16:58 Medical Attending: Patient was seen and examined by me with the medical record retrieval specialist. Situation is not changed from before. Amandeep Chavis
[2017-03-24] MEDS: Meropenem 1 GM in Sodium Chloride 0.9% 100 ML IVPB SCH ×2 (02:29→12:40)
--- NOTE | 2017-03-24 09:25 | CP.PCM.PN ---
<Mee Luciano - Last Filed: 03/24/17 13:58> Subjective - Date & Time of Evaluation Date of Evaluation: 03/24/17 Time of Evaluation: 09:25 - Subjective Subjective: Patient seen and examined at bedside. No acute events per nursing. Patient resting comfortably. Plan to reach out to ID, Dr. Armstrong, in regards to discontinuing IV antibiotic for Proteus urinary tract infection as likely patient is colonized. Review of system cannot be obtained secondary to anoxic brain injury. Objective - Vital Signs/Intake and Output Vital Signs (last 24 hours): Temp Pulse Resp BP Pulse Ox 98.5 F 69 20 143/88 97 03/24/17 08:00 03/24/17 08:00 03/24/17 08:00 03/24/17 08:00 03/24/17 08:00 Intake and Output: 03/24/17 03/24/17 06:59 18:59 Intake Total 1610 Output Total 1250 Balance 360 - Medications Medications: Current Medications Aspirin (Aspirin Chewable) 81 mg PEG DAILY [facility] Last Admin: 03/23/17 10:54 Dose: 81 mg Bethanechol Chloride (Urecholine) 50 mg PEG TID [facility] Last Admin: 03/23/17 17:51 Dose: 50 mg Bisacodyl (Dulcolax) 5 mg PO Q72H PRN PRN Reason: Constipation Last Admin: 03/20/17 10:57 Dose: 5 mg Carvedilol (Coreg) 3.125 mg PEG BID [facility] Last Admin: 03/23/17 17:50 Dose: 3.125 mg Clopidogrel Bisulfate (Plavix) 75 mg PEG DAILY [facility] Last Admin: 03/23/17 10:54 Dose: 75 mg Emollient Ointment (Vaseline Oint) 5 gm TOP BID PRN PRN Reason: Dry skin Last Admin: 03/20/17 13:41 Dose: 5 gm Enoxaparin Sodium (Lovenox) 40 mg SC DAILY [facility] Last Admin: 03/23/17 11:02 Dose: 40 mg Famotidine (Pepcid) 20 mg PEG BID [facility] Last Admin: 03/23/17 17:53 Dose: 20 mg Finasteride (Proscar) 5 mg PEG DAILY [facility] Last Admin: 03/23/17 10:54 Dose: 5 mg Meropenem 1 gm/ Sodium (Chloride) 100 mls @ 200 mls/hr IVPB Q8H [facility] Last Admin: 03/24/17 02:29 Dose: 200 mls/hr Levetiracetam (Keppra) 500 mg PEG BID [facility] Last Admin: 03/23/17 17:51 Dose: 500 mg Tamsulosin HCl (Flomax) 0.4 mg PEG DAILY [facility] Last Admin: 03/23/17 11:01 Dose: 0.4 mg - Labs Labs: 03/16/17 11:22 03/16/17 11:22 PT 10.6 SECONDS (9.7-12.2) 11/24/15 14:10 INR 1.0 11/24/15 14:10 APTT 25 SECONDS (21-34) 11/24/15 14:10 - Constitutional Appears: Non-toxic, No Acute Distress - Head Exam Head Exam: ATRAUMATIC, NORMAL INSPECTION, NORMOCEPHALIC - Eye Exam Eye Exam: Normal appearance - ENT Exam ENT Exam: Mucous Membranes Moist Additional comments: thick secretions - Neck Exam Additional comments: trach in place - Respiratory Exam Respiratory Exam: Clear to Ausculation Bilateral, NORMAL BREATHING PATTERN. absent: Rales, Rhonchi, Wheezes - Cardiovascular Exam Cardiovascular Exam: +S1, +S2. absent: Tachycardia - GI/Abdominal Exam GI & Abdominal Exam: Soft, Normal Bowel Sounds. absent: Distended, Firm, Guarding Additional comments: PEG in place - Extremities Exam Extremities Exam: Pedal Edema Additional comments: prevalon boots in place - Neurological Exam Neurological Exam: absent: Awake, Oriented x3 - Psychiatric Exam Psychiatric exam: Flat Affect - Skin Additional comments: healing sacral ulcer Assessment and Plan - Assessment and Plan (Free Text) Assessment: 1. UTI 03/24: Discussed with Dr. Armstrong. Colonization is likely. Will discontinue Meropenem tomorrow. 03/23: Continue Meropenem 1 gm IVPB Q8H. Blood culture preliminary negative for growth. Urine culture: positive for Proteus Mirabilis. Results discussed with ID, Dr. Armstrong. Started on Meropenem 1 gm IVPB Q8H. Patient afebrile. Change [place] catheter. Started on Ciprofloxacin 500 mg po BID. 03/18: UA: Color Evelia, clarity turbid, protein 2+, blood 1+, Leukocyte Esterase 3+, WBC 22, RBC 7, Triple Phos Crystals high, bacteria many [place] catheter in place CBI discontinued 01/08, baker catheter removed, Condom catheter- voiding yellow/ slightly cloudy urine Monitor 12/30- Triple lumen Baker in place for irrigation, added neosporin to CBI Urine Culture 12/03/16 - Positive Kleb pneumo, sensitive to cipro - resolved. Off antibiotics now 2. Anoxic brain injury s/p cardiac arrest in 05/2015 no acute changes Pt awake, not alert, no sedation continue current management Stable 3. Respiratory failure 03/24: Continue with current management. 03/23: Continue with aggressive suctioning. 03/22: Continue with suctioning 03/19: Less congested on exam today. Continue suctioning. 03/18: Duonebs x1 and continue aggressive suctioning for wheezing. Trach collar in place. 03/14: Wheezing overnight, no respiratory distress, SaO2 98% on Trach collar, ordered Duonebs x 1, cont aggressive suctioning, monitor 03/13: Continue aggressive suctioning. Monitor vitals. Afebrile trach collar in place - normal resp pattern. Instructed nursing to resume aggressive suctioning. 02/07: instructed nursing to give guanifesin for thickened secretions 01/12- starting mucinex for secretions 4. Urinary Retention Per nursing, not retaining urine Flomax 0.4mg PEG daily Proscar 5mg PEG daily continue Bethanecol 50mg PEG TID- started after persistent retention and found to be effective. monitor I's and O's check bladder scan for residual urine three times weekly Will plan to change condom catheter 5. Sacral Ulcers 03/24: Cont pt care with offloading/cushioning/turning Small area stage II in upper gluteal cleft- pink base Stage II ulcer present on sacrum Continue frequent turning, protective ointment and skin checks. 01/07- wound care saw patient, air mattress adjusted and protective ointment applied to sacrum Continue wound care 6. Constipation 03/24: Per nurse, patient having BMs 03/23: Monitor for constipation 03/21: Per nursing, patient had bowel movement yesterday. 03/20: More distended on exam and no BM per nurse. Lactulose given once. Nursing to record bowel movements Dulcolax 5mg PO Q72 hours prn constipation/no bowel movement 7. CAD (coronary artery disease) s/p cardiac stents on 06/13/15 Cont ASA 81mg via PEG daily Cont Coreg 3.125mg PEG BID Cont Plavix 75mg PO daily 8. Seizures Cont Keppra 500mg PEG BID for seizure prophylaxis Monitor 9. Lower extremity edema Cont Lasix via PEG as needed. Improving Monitor 10. Prophylactic measure Pepcid 20 mg PEG BID Lovenox 40mg SC daily SCDs and offloading boots continue to turn and reposition q2h Continue to monitor medication administrations and clinical presentation weekly labs- last drawn 02/09/17 Per dietary will continue tube feeds at the same rate due to nutritional need <Donavan Hallman - Last Filed: 03/25/17 12:21> Objective - Vital Signs/Intake and Output Vital Signs (last 24 hours): Temp Pulse Resp BP Pulse Ox 98.7 F 86 20 115/77 98 03/25/17 08:04 03/25/17 08:04 03/25/17 08:04 03/25/17 08:04 03/25/17 08:04 Intake and Output: 03/25/17 03/25/17 06:59 18:59 Intake Total 1610 Output Total 400 Balance 1210 - Medications Medications: Current Medications Aspirin (Aspirin Chewable) 81 mg PEG DAILY [facility] Last Admin: 03/25/17 10:10 Dose: 81 mg Bethanechol Chloride (Urecholine) 50 mg PEG TID [facility] Last Admin: 03/24/17 18:05 Dose: 50 mg Bisacodyl (Dulcolax) 5 mg PO Q72H PRN PRN Reason: Constipation Last Admin: 03/20/17 10:57 Dose: 5 mg Carvedilol (Coreg) 3.125 mg PEG BID [facility] Last Admin: 03/25/17 10:11 Dose: 3.125 mg Clopidogrel Bisulfate (Plavix) 75 mg PEG DAILY [facility] Last Admin: 03/25/17 10:11 Dose: 75 mg Emollient Ointment (Vaseline Oint) 5 gm TOP BID PRN PRN Reason: Dry skin Last Admin: 03/20/17 13:41 Dose: 5 gm Enoxaparin Sodium (Lovenox) 40 mg SC DAILY [facility] Last Admin: 03/25/17 10:10 Dose: 40 mg Famotidine (Pepcid) 20 mg PEG BID [facility] Last Admin: 03/25/17 10:10 Dose: 20 mg Finasteride (Proscar) 5 mg PEG DAILY [facility] Last Admin: 03/25/17 10:11 Dose: 5 mg Meropenem 1 gm/ Sodium (Chloride) 100 mls @ 200 mls/hr IVPB Q8H [facility] Last Admin: 03/25/17 10:11 Dose: 200 mls/hr Levetiracetam (Keppra) 500 mg PEG BID [facility] Last Admin: 03/25/17 12:12 Dose: 500 mg Tamsulosin HCl (Flomax) 0.4 mg PEG DAILY [facility] Last Admin: 03/25/17 10:10 Dose: 0.4 mg - Labs Labs: 03/16/17 11:22 03/16/17 11:22 PT 10.6 SECONDS (9.7-12.2) 11/24/15 14:10 INR 1.0 11/24/15 14:10 APTT 25 SECONDS (21-34) 11/24/15 14:10 Attending/Attestation - Attestation I have personally seen and examined this patient.: Yes I have fully participated in the care of the patient.: Yes I have reviewed all pertinent clinical information, including history, physical exam and plan: Yes Notes (Text): Patient seen and examined with the resident. Agree with the resident's evaluation, assessment and plan. Anoxic brain injury
[2017-03-24] MEDS: levETIRAcetam 100 mg/ml (5ml) Oral Syringe PEG SCH ×2 (11:03→18:05)
[2017-03-24] MEDS: Enoxaparin 40 mg Syringe SC SCH (11:04)
[2017-03-25] MEDS: Meropenem 1 GM in Sodium Chloride 0.9% 100 ML IVPB SCH ×3 (02:40→18:03)
--- NOTE | 2017-03-25 07:28 | CP.PCM.PN ---
<Mee Luciano - Last Filed: 03/25/17 07:25> Subjective - Date & Time of Evaluation Date of Evaluation: 03/25/17 Time of Evaluation: 07:25 - Subjective Subjective: Patient seen and examined at bedside. No acute events overnight. Patient is afebrile and resting comfortably. Will discharge Meropenem after fifth dose today as patient likely colonized. Review of systems cannot be obtained due to patient's clinical condition secondary to anoxic brain injury. Objective - Vital Signs/Intake and Output Vital Signs (last 24 hours): Temp Pulse Resp BP Pulse Ox 98.2 F 73 20 119/75 100 03/24/17 23:46 03/24/17 23:46 03/24/17 23:46 03/24/17 23:46 03/24/17 23:46 Intake and Output: 03/25/17 03/25/17 06:59 18:59 Intake Total 1610 Output Total 400 Balance 1210 - Medications Medications: Current Medications Aspirin (Aspirin Chewable) 81 mg PEG DAILY [facility] Last Admin: 03/24/17 11:03 Dose: 81 mg Bethanechol Chloride (Urecholine) 50 mg PEG TID [facility] Last Admin: 03/24/17 18:05 Dose: 50 mg Bisacodyl (Dulcolax) 5 mg PO Q72H PRN PRN Reason: Constipation Last Admin: 03/20/17 10:57 Dose: 5 mg Carvedilol (Coreg) 3.125 mg PEG BID [facility] Last Admin: 03/24/17 18:05 Dose: 3.125 mg Clopidogrel Bisulfate (Plavix) 75 mg PEG DAILY [facility] Last Admin: 03/24/17 11:03 Dose: 75 mg Emollient Ointment (Vaseline Oint) 5 gm TOP BID PRN PRN Reason: Dry skin Last Admin: 03/20/17 13:41 Dose: 5 gm Enoxaparin Sodium (Lovenox) 40 mg SC DAILY [facility] Last Admin: 03/24/17 11:04 Dose: 40 mg Famotidine (Pepcid) 20 mg PEG BID [facility] Last Admin: 03/24/17 18:05 Dose: 20 mg Finasteride (Proscar) 5 mg PEG DAILY [facility] Last Admin: 03/24/17 11:04 Dose: 5 mg Meropenem 1 gm/ Sodium (Chloride) 100 mls @ 200 mls/hr IVPB Q8H [facility] Last Admin: 03/25/17 02:40 Dose: 200 mls/hr Levetiracetam (Keppra) 500 mg PEG BID [facility] Last Admin: 03/24/17 18:05 Dose: 500 mg Tamsulosin HCl (Flomax) 0.4 mg PEG DAILY [facility] Last Admin: 03/24/17 11:04 Dose: 0.4 mg - Labs Labs: 03/16/17 11:22 03/16/17 11:22 PT 10.6 SECONDS (9.7-12.2) 11/24/15 14:10 INR 1.0 11/24/15 14:10 APTT 25 SECONDS (21-34) 11/24/15 14:10 - Constitutional Appears: No Acute Distress - Head Exam Head Exam: ATRAUMATIC, NORMAL INSPECTION, NORMOCEPHALIC - Eye Exam Eye Exam: Normal appearance - ENT Exam ENT Exam: Mucous Membranes Moist - Neck Exam Additional comments: trach in place. thick secretions - Respiratory Exam Respiratory Exam: Clear to Ausculation Bilateral, NORMAL BREATHING PATTERN. absent: Rales, Rhonchi, Wheezes - Cardiovascular Exam Cardiovascular Exam: +S1, +S2. absent: Tachycardia - GI/Abdominal Exam GI & Abdominal Exam: Soft, Normal Bowel Sounds. absent: Firm Additional comments: PEG in place. No surrounding erythema or discharge. - Exam Additional comments: condom catheter in place - Extremities Exam Extremities Exam: absent: Pedal Edema, Tenderness Additional comments: edematous - Back Exam Back Exam: NORMAL INSPECTION - Neurological Exam Neurological Exam: absent: Alert, Awake - Psychiatric Exam Psychiatric exam: Flat Affect - Skin Additional comments: healing sacral ulcer Assessment and Plan - Assessment and Plan (Free Text) Assessment: 1. UTI 03/25: Discontinue Meropenem. Patient afebrile and asymptomatic. 03/24: Discussed with Dr. Armstrong. Colonization is likely. Will discontinue Meropenem tomorrow. 03/23: Continue Meropenem 1 gm IVPB Q8H. Blood culture preliminary negative for growth. Urine culture: positive for Proteus Mirabilis. Results discussed with ID, Dr. Armstrong. Started on Meropenem 1 gm IVPB Q8H. Patient afebrile. Change [place] catheter. Started on Ciprofloxacin 500 mg po BID. 03/18: UA: Color Evelia, clarity turbid, protein 2+, blood 1+, Leukocyte Esterase 3+, WBC 22, RBC 7, Triple Phos Crystals high, bacteria many [place] catheter in place CBI discontinued 01/08, baker catheter removed, Condom catheter- voiding yellow/ slightly cloudy urine Monitor 12/30- Triple lumen Baker in place for irrigation, added neosporin to CBI Urine Culture 12/03/16 - Positive Kleb pneumo, sensitive to cipro - resolved. Off antibiotics now 2. Anoxic brain injury s/p cardiac arrest in 05/2015 no acute changes Pt awake, not alert, no sedation continue current management Stable 3. Respiratory failure 03/25: Continue with current management. 03/23: Continue with aggressive suctioning. 03/22: Continue with suctioning 03/19: Less congested on exam today. Continue suctioning. 03/18: Duonebs x1 and continue aggressive suctioning for wheezing. Trach collar in place. 03/14: Wheezing overnight, no respiratory distress, SaO2 98% on Trach collar, ordered Duonebs x 1, cont aggressive suctioning, monitor 03/13: Continue aggressive suctioning. Monitor vitals. Afebrile trach collar in place - normal resp pattern. Instructed nursing to resume aggressive suctioning. 02/07: instructed nursing to give guanifesin for thickened secretions 01/12- starting mucinex for secretions 4. Urinary Retention 03/25: Monitor for urinary retention Flomax 0.4mg PEG daily Proscar 5mg PEG daily continue Bethanecol 50mg PEG TID- started after persistent retention and found to be effective. monitor I's and O's check bladder scan for residual urine three times weekly Will plan to change condom catheter 5. Sacral Ulcers 5: Cont pt care with offloading/cushioning/turning Small area stage II in upper gluteal cleft- pink base Stage II ulcer present on sacrum Continue frequent turning, protective ointment and skin checks. 01/07- wound care saw patient, air mattress adjusted and protective ointment applied to sacrum Continue wound care 6. Constipation 5/: Monitor with nurse that patient having normal BMs 03/24: Per nurse, patient having BMs 03/23: Monitor for constipation 03/21: Per nursing, patient had bowel movement yesterday. 03/20: More distended on exam and no BM per nurse. Lactulose given once. Nursing to record bowel movements Dulcolax 5mg PO Q72 hours prn constipation/no bowel movement 7. CAD (coronary artery disease) s/p cardiac stents on 06/13/15 Cont ASA 81mg via PEG daily Cont Coreg 3.125mg PEG BID Cont Plavix 75mg PO daily 8. Seizures Cont Keppra 500mg PEG BID for seizure prophylaxis Monitor 9. Lower extremity edema Cont Lasix via PEG as needed. Improving Monitor 10. Prophylactic measure Pepcid 20 mg PEG BID Lovenox 40mg SC daily SCDs and offloading boots continue to turn and reposition q2h Continue to monitor medication administrations and clinical presentation weekly labs- last drawn 02/09/17 Per dietary will continue tube feeds at the same rate due to nutritional need <Donavan Hallman - Last Filed: 03/25/17 12:22> Objective - Vital Signs/Intake and Output Vital Signs (last 24 hours): Temp Pulse Resp BP Pulse Ox 98.7 F 86 20 115/77 98 03/25/17 08:04 03/25/17 08:04 03/25/17 08:04 03/25/17 08:04 03/25/17 08:04 Intake and Output: 03/25/17 03/25/17 06:59 18:59 Intake Total 1610 Output Total 400 Balance 1210 - Medications Medications: Current Medications Aspirin (Aspirin Chewable) 81 mg PEG DAILY [facility] Last Admin: 03/25/17 10:10 Dose: 81 mg Bethanechol Chloride (Urecholine) 50 mg PEG TID [facility] Last Admin: 03/25/17 12:21 Dose: Not Given Bisacodyl (Dulcolax) 5 mg PO Q72H PRN PRN Reason: Constipation Last Admin: 03/20/17 10:57 Dose: 5 mg Carvedilol (Coreg) 3.125 mg PEG BID [facility] Last Admin: 03/25/17 10:11 Dose: 3.125 mg Clopidogrel Bisulfate (Plavix) 75 mg PEG DAILY [facility] Last Admin: 03/25/17 10:11 Dose: 75 mg Emollient Ointment (Vaseline Oint) 5 gm TOP BID PRN PRN Reason: Dry skin Last Admin: 03/20/17 13:41 Dose: 5 gm Enoxaparin Sodium (Lovenox) 40 mg SC DAILY [facility] Last Admin: 03/25/17 10:10 Dose: 40 mg Famotidine (Pepcid) 20 mg PEG BID [facility] Last Admin: 03/25/17 10:10 Dose: 20 mg Finasteride (Proscar) 5 mg PEG DAILY [facility] Last Admin: 03/25/17 10:11 Dose: 5 mg Meropenem 1 gm/ Sodium (Chloride) 100 mls @ 200 mls/hr IVPB Q8H [facility] Last Admin: 03/25/17 10:11 Dose: 200 mls/hr Levetiracetam (Keppra) 500 mg PEG BID [facility] Last Admin: 03/25/17 12:12 Dose: 500 mg Tamsulosin HCl (Flomax) 0.4 mg PEG DAILY [facility] Last Admin: 03/25/17 10:10 Dose: 0.4 mg - Labs Labs: 03/16/17 11:22 03/16/17 11:22 PT 10.6 SECONDS (9.7-12.2) 11/24/15 14:10 INR 1.0 11/24/15 14:10 APTT 25 SECONDS (21-34) 11/24/15 14:10 Attending/Attestation - Attestation I have personally seen and examined this patient.: Yes I have fully participated in the care of the patient.: Yes I have reviewed all pertinent clinical information, including history, physical exam and plan: Yes Notes (Text): Patient seen and examined with the resident. Agree with the resident's evaluation, assessment and plan. Anoxic brain injury
[2017-03-25] MEDS: Enoxaparin 40 mg Syringe SC SCH (10:10)
[2017-03-25] MEDS: levETIRAcetam 100 mg/ml (5ml) Oral Syringe PEG SCH ×2 (12:12→18:02)
[2017-03-26] MEDS: Meropenem 1 GM in Sodium Chloride 0.9% 100 ML IVPB SCH (03:30)
--- NOTE | 2017-03-26 07:29 | CP.PCM.PN ---
Addendum entered and electronically signed by Mee Luciano DO 03/26/17 18: 45: Isosource feeding rate decreased to 30 cc/hr. Start Florastor 250 mg po TID via PEG until April 25, 2017. Turn patient q2h Original Note: <Mee Luciano - Last Filed: 03/26/17 12:52> Subjective - Date & Time of Evaluation Date of Evaluation: 03/26/17 Time of Evaluation: 07:26 - Subjective Subjective: Patient seen and examined at bedside. No acute events per nursing. Instructed nursing to provide aggressive suctioning yesterday. Firmness of abdomen noticed on exam. Per discussion with nurse, patient has been having diarrhea. Will have dietary come to assess tube feeding rates of Isosource 1.5 as patient has been on 60 cc/hr continuous Review of systems cannot be obtained as patient has anoxic brain injury. Objective - Vital Signs/Intake and Output Vital Signs (last 24 hours): Temp Pulse Resp BP Pulse Ox 98.4 F 86 20 119/77 99 03/25/17 23:38 03/25/17 23:38 03/25/17 23:38 03/25/17 23:38 03/25/17 23:38 Intake and Output: 03/26/17 03/26/17 06:59 18:59 Intake Total 980 Output Total 400 Balance 580 - Medications Medications: Current Medications Aspirin (Aspirin Chewable) 81 mg PEG DAILY [facility] Last Admin: 03/25/17 10:10 Dose: 81 mg Bethanechol Chloride (Urecholine) 50 mg PEG TID [facility] Last Admin: 03/25/17 18:03 Dose: 50 mg Bisacodyl (Dulcolax) 5 mg PO Q72H PRN PRN Reason: Constipation Last Admin: 03/20/17 10:57 Dose: 5 mg Carvedilol (Coreg) 3.125 mg PEG BID [facility] Last Admin: 03/25/17 18:02 Dose: 3.125 mg Clopidogrel Bisulfate (Plavix) 75 mg PEG DAILY [facility] Last Admin: 03/25/17 10:11 Dose: 75 mg Emollient Ointment (Vaseline Oint) 5 gm TOP BID PRN PRN Reason: Dry skin Last Admin: 03/20/17 13:41 Dose: 5 gm Enoxaparin Sodium (Lovenox) 40 mg SC DAILY [facility] Last Admin: 03/25/17 10:10 Dose: 40 mg Famotidine (Pepcid) 20 mg PEG BID [facility] Last Admin: 03/25/17 18:03 Dose: 20 mg Finasteride (Proscar) 5 mg PEG DAILY [facility] Last Admin: 03/25/17 10:11 Dose: 5 mg Levetiracetam (Keppra) 500 mg PEG BID [facility] Last Admin: 03/25/17 18:02 Dose: 500 mg Tamsulosin HCl (Flomax) 0.4 mg PEG DAILY [facility] Last Admin: 03/25/17 10:10 Dose: 0.4 mg - Labs Labs: 03/16/17 11:22 03/16/17 11:22 PT 10.6 SECONDS (9.7-12.2) 11/24/15 14:10 INR 1.0 11/24/15 14:10 APTT 25 SECONDS (21-34) 11/24/15 14:10 - Constitutional Appears: Non-toxic, No Acute Distress, Chronically Ill - Head Exam Head Exam: ATRAUMATIC, NORMAL INSPECTION, NORMOCEPHALIC - Eye Exam Eye Exam: Normal appearance Additional comments: patient does not track eyes - ENT Exam ENT Exam: Mucous Membranes Moist - Neck Exam Additional comments: trach in place, no surrounding erythema - Respiratory Exam Respiratory Exam: Clear to Ausculation Bilateral, NORMAL BREATHING PATTERN. absent: Rales, Rhonchi, Wheezes - Cardiovascular Exam Cardiovascular Exam: +S1, +S2. absent: Tachycardia - GI/Abdominal Exam GI & Abdominal Exam: Distended, Firm, Hypoactive Bowel Sounds Additional comments: PEG in place, no surrounding erythema. No discharge - Extremities Exam Extremities Exam: absent: Pedal Edema, Tenderness Additional comments: Prevalon boots and SCDs in place - Back Exam Additional comments: sacral ulcer healing - Neurological Exam Neurological Exam: absent: Alert, Awake, Oriented x3 - Psychiatric Exam Psychiatric exam: Flat Affect - Skin Additional comments: sacral ulcer healing Assessment and Plan - Assessment and Plan (Free Text) Assessment: 1. UTI 5/4: Completed Meropenem x 5 days 53: Discontinue Meropenem. Patient afebrile and asymptomatic. 2: Discussed with Dr. Armstrong. Colonization is likely. Will discontinue Meropenem tomorrow. 03/23: Continue Meropenem 1 gm IVPB Q8H. Blood culture preliminary negative for growth. Urine culture: positive for Proteus Mirabilis. Results discussed with ID, Dr. Armstrong. Started on Meropenem 1 gm IVPB Q8H. Patient afebrile. Change [place] catheter. Started on Ciprofloxacin 500 mg po BID. 03/18: UA: Color Evelia, clarity turbid, protein 2+, blood 1+, Leukocyte Esterase 3+, WBC 22, RBC 7, Triple Phos Crystals high, bacteria many [place] catheter in place CBI discontinued 01/08, baker catheter removed, Condom catheter- voiding yellow/ slightly cloudy urine Monitor 12/30- Triple lumen Baker in place for irrigation, added neosporin to CBI Urine Culture 12/03/16 - Positive Kleb pneumo, sensitive to cipro - resolved. Off antibiotics now 2. Anoxic brain injury s/p cardiac arrest in 05/2015 no acute changes Pt not alert, no sedation. Does not track with his eyes. continue current management Stable 3. Respiratory failure 03/26: Pt less congested today. Spoke with respiratory therapist and secretions were noted in upper airways. Continue with aggressive suctioning multiple times a day. 03/25: Continue with current management. 03/23: Continue with aggressive suctioning. 03/22: Continue with suctioning 03/19: Less congested on exam today. Continue suctioning. 03/18: Duonebs x1 and continue aggressive suctioning for wheezing. Trach collar in place. 03/14: Wheezing overnight, no respiratory distress, SaO2 98% on Trach collar, ordered Duonebs x 1, cont aggressive suctioning, monitor 03/13: Continue aggressive suctioning. Monitor vitals. Afebrile trach collar in place - normal resp pattern. Instructed nursing to resume aggressive suctioning. 02/07: instructed nursing to give guanifesin for thickened secretions 01/12- starting mucinex for secretions 4. Urinary Retention 03/26: Per nursing, patient not retaining urine. Good urinary output. Flomax 0.4mg PEG daily Proscar 5mg PEG daily continue Bethanecol 50mg PEG TID- started after persistent retention and found to be effective. monitor I's and O's check bladder scan for residual urine three times weekly Will plan to change condom catheter 5. Sacral Ulcers 03/26: Cont pt care with offloading/cushioning/turning Small area stage II in upper gluteal cleft- pink base Stage II ulcer present on sacrum Continue frequent turning, protective ointment and skin checks. 01/07- wound care saw patient, air mattress adjusted and protective ointment applied to sacrum Continue wound care 6. Constipation 03/26: Per nurse, patient had episode of diarrhea. Abdomen distended and firm. Will have dietary assess tube feeding rate. 03/24: Per nurse, patient having BMs 03/23: Monitor for constipation 03/21: Per nursing, patient had bowel movement yesterday. 03/20: More distended on exam and no BM per nurse. Lactulose given once. Nursing to record bowel movements Dulcolax 5mg PO Q72 hours prn constipation/no bowel movement 7. CAD (coronary artery disease) s/p cardiac stents on 06/13/15 Cont ASA 81mg via PEG daily Cont Coreg 3.125mg PEG BID Cont Plavix 75mg PO daily 8. Seizures Cont Keppra 500mg PEG BID for seizure prophylaxis Monitor 9. Lower extremity edema Cont Lasix via PEG as needed. Improving Monitor 10. Prophylactic measure Pepcid 20 mg PEG BID Lovenox 40mg SC daily SCDs and offloading boots continue to turn and reposition q2h Continue to monitor medication administrations and clinical presentation weekly labs- last drawn 02/09/17 Per dietary will continue tube feeds at the same rate due to nutritional need <Caden Mercedes - Last Filed: 03/27/17 09:45> Objective - Vital Signs/Intake and Output Vital Signs (last 24 hours): Temp Pulse Resp BP Pulse Ox 98.5 F 76 20 119/75 95 03/27/17 08:56 03/27/17 08:56 03/27/17 08:56 03/27/17 08:56 03/27/17 08:56 Intake and Output: 03/27/17 03/27/17 06:59 18:59 Intake Total 500 340 Output Total 200 750 Balance 300 -410 - Medications Medications: Current Medications Aspirin (Aspirin Chewable) 81 mg PEG DAILY [facility] Last Admin: 03/26/17 10:29 Dose: 81 mg Bethanechol Chloride (Urecholine) 50 mg PEG TID [facility] Last Admin: 03/26/17 18:41 Dose: 50 mg Bisacodyl (Dulcolax) 5 mg PO Q72H PRN PRN Reason: Constipation Last Admin: 03/20/17 10:57 Dose: 5 mg Carvedilol (Coreg) 3.125 mg PEG BID [facility] Last Admin: 03/26/17 18:41 Dose: 3.125 mg Clopidogrel Bisulfate (Plavix) 75 mg PEG DAILY [facility] Last Admin: 03/26/17 10:29 Dose: 75 mg Emollient Ointment (Vaseline Oint) 5 gm TOP BID PRN PRN Reason: Dry skin Last Admin: 03/20/17 13:41 Dose: 5 gm Enoxaparin Sodium (Lovenox) 40 mg SC DAILY [facility] Last Admin: 03/26/17 10:27 Dose: 40 mg Famotidine (Pepcid) 20 mg PEG BID [facility] Last Admin: 03/26/17 18:40 Dose: 20 mg Finasteride (Proscar) 5 mg PEG DAILY [facility] Last Admin: 03/26/17 11:43 Dose: 5 mg Levetiracetam (Keppra) 500 mg PEG BID [facility] Last Admin: 03/26/17 18:41 Dose: 500 mg Saccharomyces Boulardii (Florastor) 250 mg PO TID [facility] Tamsulosin HCl (Flomax) 0.4 mg PEG DAILY [facility] Last Admin: 03/26/17 10:28 Dose: 0.4 mg - Labs Labs: 03/16/17 11:22 03/16/17 11:22 PT 10.6 SECONDS (9.7-12.2) 11/24/15 14:10 INR 1.0 11/24/15 14:10 APTT 25 SECONDS (21-34) 11/24/15 14:10 Attending/Attestation - Attestation I have personally seen and examined this patient.: Yes I have fully participated in the care of the patient.: Yes I have reviewed all pertinent clinical information, including history, physical exam and plan: Yes Notes (Text): 03/27/17 09:44 This patient was seen and examined at 11:40 AM 03/26/17 History, Physical, and Assessment and Plan were thoroughly gone over with the Trust Advisor. Caden Mercedes D.O.
[2017-03-26] MEDS: Enoxaparin 40 mg Syringe SC SCH (10:27)
[2017-03-26] MEDS: levETIRAcetam 100 mg/ml (5ml) Oral Syringe PEG SCH ×2 (10:28→18:41)
[2017-03-26 21:51] LABS: SQUAMOUS EPITHIAL < 1 /hpf (0-5); URINE BACTERIA RARE (<OCC); URINE BILIRUBIN NEGATIVE (NEGATIVE); URINE CLARITY Clear (Clear); URINE COLOR Yellow (YELLOW); URINE GLUCOSE (UA) NORMAL (Normal); URINE LEUKOCYTE ESTERASE NEG Leu/uL (Negative); URINE PROTEIN NEGATIVE (NEGATIVE)
[2017-03-26 21:52] LABS: URINE BLOOD 1+ (NEGATIVE)
[2017-03-27] MEDS: levETIRAcetam 100 mg/ml (5ml) Oral Syringe PEG SCH ×2 (10:23→17:44)
[2017-03-27] MEDS: Enoxaparin 40 mg Syringe SC SCH (10:23)
[2017-03-27] MEDS: Saccharomyces Boulardi 250 mg Cap PO SCH ×3 (10:23→17:44)
--- NOTE | 2017-03-27 13:56 | CP.PCM.PN ---
<Nely Pate - Last Filed: 03/27/17 14:50> Subjective - Date & Time of Evaluation Date of Evaluation: 03/27/17 Time of Evaluation: 13:56 - Subjective Subjective: Medicine Progress Note Patient seen and examined. The patient remains clinically stable with no acute events overnight. Yoo catheter is in place draining yellow clear urine. Trach is in place with no visible secretions. Patient does not appear to be in acute distress. ROS could not be obtained due to clinical condition. Objective - Vital Signs/Intake and Output Vital Signs (last 24 hours): Temp Pulse Resp BP Pulse Ox 98.5 F 76 20 119/75 95 03/27/17 08:56 03/27/17 08:56 03/27/17 08:56 03/27/17 08:56 03/27/17 08:56 Intake and Output: 03/27/17 03/27/17 06:59 18:59 Intake Total 500 340 Output Total 200 750 Balance 300 -410 - Medications Medications: Current Medications Aspirin (Aspirin Chewable) 81 mg PEG DAILY [facility] Last Admin: 03/27/17 10:48 Dose: 81 mg Bethanechol Chloride (Urecholine) 50 mg PEG TID [facility] Last Admin: 03/27/17 10:23 Dose: 50 mg Bisacodyl (Dulcolax) 5 mg PO Q72H PRN PRN Reason: Constipation Last Admin: 03/20/17 10:57 Dose: 5 mg Carvedilol (Coreg) 3.125 mg PEG BID [facility] Last Admin: 03/27/17 10:22 Dose: 3.125 mg Clopidogrel Bisulfate (Plavix) 75 mg PEG DAILY [facility] Last Admin: 03/27/17 10:23 Dose: 75 mg Emollient Ointment (Vaseline Oint) 5 gm TOP BID PRN PRN Reason: Dry skin Last Admin: 03/20/17 13:41 Dose: 5 gm Enoxaparin Sodium (Lovenox) 40 mg SC DAILY [facility] Last Admin: 03/27/17 10:23 Dose: 40 mg Famotidine (Pepcid) 20 mg PEG BID [facility] Last Admin: 03/27/17 10:23 Dose: 20 mg Finasteride (Proscar) 5 mg PEG DAILY [facility] Last Admin: 03/27/17 10:23 Dose: 5 mg Levetiracetam (Keppra) 500 mg PEG BID [facility] Last Admin: 03/27/17 10:23 Dose: 500 mg Saccharomyces Boulardii (Florastor) 250 mg PO TID [facility] Last Admin: 03/27/17 10:23 Dose: 250 mg Tamsulosin HCl (Flomax) 0.4 mg PEG DAILY [facility] Last Admin: 03/27/17 10:23 Dose: 0.4 mg - Labs Labs: 03/16/17 11:22 03/16/17 11:22 PT 10.6 SECONDS (9.7-12.2) 11/24/15 14:10 INR 1.0 11/24/15 14:10 APTT 25 SECONDS (21-34) 11/24/15 14:10 - Constitutional Appears: No Acute Distress, Chronically Ill - Head Exam Head Exam: ATRAUMATIC, NORMOCEPHALIC - Eye Exam Eye Exam: absent: EOMI - ENT Exam ENT Exam: Mucous Membranes Dry - Neck Exam Additional comments: midline trach in place, dry with no secretions - Respiratory Exam Respiratory Exam: NORMAL BREATHING PATTERN. absent: Accessory Muscle Use, Rhonchi, Wheezes, Respiratory Distress - Cardiovascular Exam Cardiovascular Exam: REGULAR RHYTHM, +S1, +S2 - GI/Abdominal Exam GI & Abdominal Exam: Distended, Soft, Diminished Bowel Sounds. absent: Firm, Guarding, Rigid Additional comments: PEG in place, no surrounding erythema. No discharge - Extremities Exam Additional comments: Prevalon boots and SCDs in place - Neurological Exam Neurological Exam: absent: Alert, Awake - Psychiatric Exam Psychiatric exam: absent: Normal Affect - Skin Skin Exam: Dry, Normal Color, Warm Assessment and Plan - Assessment and Plan (Free Text) Assessment: 1. UTI Resolved 03/17/17 urinalysis was positive: Color Evelia, clarity turbid, protein 2+, blood 1+, Leukocyte Esterase 3+, WBC 22, RBC 7, Triple Phos Crystals high, bacteria many. The urine culture was positive for Proteus Mirabilis. Patient has a history of UTIs. His catheter was changed and the patient was started on Meropenem 1 gm IVPB Q8H for 5 days and was completed on 03/25. On 03/26/17 the repeat UA showed 1+ blood, 11 RBCs. [place] catheter in place CBI discontinued 01/08 Monitor 2. Anoxic brain injury s/p cardiac arrest in 05/2015 no acute changes Pt not alert, no sedation. Does not track with his eyes. continue current management. Continue tube feeds- feeds decreased to 30cc/hr on 03/26/17 due to abdominal distention and diarrhea. No residuals noted. Start Florastor 250 mg po TID via PEG until April 25, 2017 for diarrhea. If diarrhea does not resolve, will order stool studies. 3. Respiratory failure Trach in place, continue daily monitory for secretions. No change in management at this time. Continue with aggressive suctioning multiple times a day per respiratory therapist. 4. Urinary Retention Resolved, Good urinary output. Flomax 0.4mg PEG daily Proscar 5mg PEG daily continue Bethanecol 50mg PEG TID- started after persistent retention and found to be effective. monitor I's and O's check bladder scan for residual urine three times weekly 5. Sacral Ulcers Cont with offloading/cushioning/turning Small area stage II in upper gluteal cleft- pink base Stage II ulcer present on sacrum Continue frequent turning, protective ointment and skin checks. Continue wound care 6. Constipation Resolved, patient currently has diarrhea. Nursing to record bowel movements Dulcolax 5mg PO Q72 hours prn constipation/no bowel movement 7. CAD (coronary artery disease) s/p cardiac stents on 06/13/15 Cont ASA 81mg via PEG daily Cont Coreg 3.125mg PEG BID Cont Plavix 75mg PO daily 8. Seizures Cont Keppra 500mg PEG BID for seizure prophylaxis Monitor 9. Lower extremity edema Cont Lasix via PEG as needed. Improving Monitor 10. Prophylactic measure Pepcid 20 mg PEG BID Lovenox 40mg SC daily SCDs and offloading boots continue to turn and reposition q2h Continue to monitor medication administrations and clinical presentation weekly labs <Donavan Hallman - Last Filed: 04/23/17 12:16> Objective - Vital Signs/Intake and Output Vital Signs (last 24 hours): Temp Pulse Resp BP Pulse Ox 98.8 F 89 18 101/64 99 04/23/17 07:00 04/23/17 07:00 04/23/17 07:00 04/23/17 07:00 04/23/17 07:00 Intake and Output: 04/23/17 04/23/17 06:59 18:59 Intake Total 1040 Output Total 750 Balance 290 - Medications Medications: Current Medications Acetaminophen (Tylenol 650mg/20.3ml Solution Ud) 650 mg PEG Q6 PRN PRN Reason: Fever >100.4 F Last Admin: 04/07/17 02:45 Dose: 650 mg Acetylcysteine (Acetylcysteine 20%) 4 ml INH RQ6 [facility] Last Admin: 04/23/17 08:08 Dose: 4 ml Albuterol/Ipratropium (Duoneb 3 Mg/0.5 Mg (3 Ml) Ud) 3 ml INH RQ6 [facility] Last Admin: 04/23/17 08:08 Dose: 3 ml Aspirin (Aspirin Chewable) 81 mg PO DAILY [facility] Last Admin: 04/23/17 09:08 Dose: 81 mg Bethanechol Chloride (Urecholine) 50 mg PO TID [facility] Last Admin: 04/23/17 09:08 Dose: 50 mg Carvedilol (Coreg) 3.125 mg PEG BID [facility] Last Admin: 04/23/17 09:11 Dose: Not Given Clopidogrel Bisulfate (Plavix) 75 mg PO DAILY [facility] Last Admin: 04/23/17 09:08 Dose: 75 mg Famotidine (Pepcid) 20 mg PEG BID [facility] Last Admin: 04/23/17 09:09 Dose: 20 mg Finasteride (Proscar) 5 mg PO DAILY [facility] Last Admin: 04/23/17 09:08 Dose: 5 mg Levetiracetam (Keppra) 500 mg PO BID [facility] Last Admin: 04/23/17 09:09 Dose: 500 mg Methylprednisolone (Solu-Medrol) 20 mg IVP DAILY [facility] Stop: 04/24/17 10:01 Last Admin: 04/23/17 09:10 Dose: 20 mg Saccharomyces Boulardii (Florastor) 250 mg PO TID [facility] Last Admin: 04/23/17 09:07 Dose: 250 mg Tamsulosin HCl (Flomax) 0.4 mg PO DAILY [facility] Last Admin: 04/23/17 09:09 Dose: 0.4 mg - Labs Labs: 04/20/17 07:11 04/20/17 07:11 PT 10.6 SECONDS (9.7-12.2) 11/24/15 14:10 INR 1.0 11/24/15 14:10 APTT 25 SECONDS (21-34) 11/24/15 14:10 Attending/Attestation - Attestation I have personally seen and examined this patient.: Yes I have fully participated in the care of the patient.: Yes I have reviewed all pertinent clinical information, including history, physical exam and plan: Yes Notes (Text): Patient seen and examined with the resident. Agree with the resident's evaluation, assessment and plan. UTI, Anoxic brain Injury, Cardiac arrest, respiratory failure now with trach collar
--- NOTE | 2017-03-28 03:10 | CP.PCM.PN ---
<Alex Coyle - Last Filed: 03/28/17 03:18> Subjective - Date & Time of Evaluation Date of Evaluation: 03/28/17 Time of Evaluation: 02:55 - Subjective Subjective: Medicine Progress Note Pt seen and examined in no apparent acute distress. Nursing team noted the change in administration of patient's PEG tube feeds. Patient's clinical presentation is unchanged. A ROS could not be obtained at this time due to patient's clinical presentation. Objective - Vital Signs/Intake and Output Vital Signs (last 24 hours): Temp Pulse Resp BP Pulse Ox 97.4 F L 63 20 111/71 96 03/28/17 00:00 03/28/17 00:00 03/28/17 00:00 03/28/17 00:00 03/28/17 00:00 Intake and Output: 03/27/17 03/28/17 18:59 06:59 Intake Total 680 440 Output Total 1150 150 Balance -470 290 - Medications Medications: Current Medications Aspirin (Aspirin Chewable) 81 mg PEG DAILY [facility] Last Admin: 03/27/17 10:48 Dose: 81 mg Bethanechol Chloride (Urecholine) 50 mg PEG TID [facility] Last Admin: 03/27/17 17:44 Dose: 50 mg Bisacodyl (Dulcolax) 5 mg PO Q72H PRN PRN Reason: Constipation Last Admin: 03/20/17 10:57 Dose: 5 mg Carvedilol (Coreg) 3.125 mg PEG BID [facility] Last Admin: 03/27/17 17:44 Dose: 3.125 mg Clopidogrel Bisulfate (Plavix) 75 mg PEG DAILY [facility] Last Admin: 03/27/17 10:23 Dose: 75 mg Emollient Ointment (Vaseline Oint) 5 gm TOP BID PRN PRN Reason: Dry skin Last Admin: 03/20/17 13:41 Dose: 5 gm Enoxaparin Sodium (Lovenox) 40 mg SC DAILY [facility] Last Admin: 03/27/17 10:23 Dose: 40 mg Famotidine (Pepcid) 20 mg PEG BID [facility] Last Admin: 03/27/17 17:44 Dose: 20 mg Finasteride (Proscar) 5 mg PEG DAILY [facility] Last Admin: 03/27/17 10:23 Dose: 5 mg Levetiracetam (Keppra) 500 mg PEG BID [facility] Last Admin: 03/27/17 17:44 Dose: 500 mg Saccharomyces Boulardii (Florastor) 250 mg PO TID [facility] Last Admin: 03/27/17 17:44 Dose: 250 mg Tamsulosin HCl (Flomax) 0.4 mg PEG DAILY [facility] Last Admin: 03/27/17 10:23 Dose: 0.4 mg - Labs Labs: 03/16/17 11:22 03/16/17 11:22 PT 10.6 SECONDS (9.7-12.2) 11/24/15 14:10 INR 1.0 11/24/15 14:10 APTT 25 SECONDS (21-34) 11/24/15 14:10 - Constitutional Appears: No Acute Distress, Chronically Ill - Head Exam Head Exam: ATRAUMATIC - Eye Exam Eye Exam: Normal appearance - ENT Exam ENT Exam: Mucous Membranes Moist Additional comments: midline trach in place, dry with minimal secretions - Respiratory Exam Respiratory Exam: NORMAL BREATHING PATTERN. absent: Wheezes - Cardiovascular Exam Cardiovascular Exam: +S1, +S2 - GI/Abdominal Exam GI & Abdominal Exam: Soft. absent: Distended, Guarding Additional comments: PEG in place, no surrounding erythema. No discharge - Extremities Exam Extremities Exam: absent: Full ROM Additional comments: SCDs in place - Back Exam Back Exam: absent: Full ROM - Neurological Exam Neurological Exam: absent: Alert, Awake, Oriented x3 - Psychiatric Exam Psychiatric exam: Flat Affect - Skin Skin Exam: Dry, Normal Color, Warm Assessment and Plan - Assessment and Plan (Free Text) Assessment: 1. UTI Resolved 03/17/17 urinalysis was positive: Color Evelia, clarity turbid, protein 2+, blood 1+, Leukocyte Esterase 3+, WBC 22, RBC 7, Triple Phos Crystals high, bacteria many. The urine culture was positive for Proteus Mirabilis. Patient has a history of UTIs. His catheter was changed and the patient was started on Meropenem 1 gm IVPB Q8H for 5 days and was completed on 03/25. On 03/26/17 the repeat UA showed 1+ blood, 11 RBCs. [place] catheter in place CBI discontinued 01/08 Monitor 2. Anoxic brain injury s/p cardiac arrest in 05/2015 no acute changes Pt not alert, no sedation. Does not track with his eyes. continue current management. Continue tube feeds- feeds decreased to 30cc/hr on 03/26/17 due to abdominal distention and diarrhea. No residuals noted. Start Florastor 250 mg po TID via PEG until April 25, 2017 for diarrhea. If diarrhea does not resolve, will order stool studies. 3. Respiratory failure Trach in place, continue daily monitory for secretions. No change in management at this time. Continue with aggressive suctioning multiple times a day per respiratory therapist. Minimal secretions noted 4. Urinary Retention Resolved, Good urinary output. Flomax 0.4mg PEG daily Proscar 5mg PEG daily continue Bethanecol 50mg PEG TID- started after persistent retention and found to be effective. monitor I's and O's check bladder scan for residual urine three times weekly 5. Sacral Ulcers Cont with offloading/cushioning/turning Small area stage II in upper gluteal cleft- pink base Stage II ulcer present on sacrum Continue frequent turning, protective ointment and skin checks. Continue wound care 6. Constipation Resolved, patient currently has diarrhea. Nursing to record bowel movements Dulcolax 5mg PO Q72 hours prn constipation/no bowel movement 7. CAD (coronary artery disease) s/p cardiac stents on 06/13/15 Cont ASA 81mg via PEG daily Cont Coreg 3.125mg PEG BID Cont Plavix 75mg PO daily 8. Seizures Cont Keppra 500mg PEG BID for seizure prophylaxis Monitor 9. Lower extremity edema Cont Lasix via PEG as needed. Improving Monitor 10. Prophylactic measure Pepcid 20 mg PEG BID Lovenox 40mg SC daily SCDs and offloading boots continue to turn and reposition q2h Continue to monitor medication administrations and clinical presentation weekly labs <Donavan Hallman - Last Filed: 04/23/17 12:16> Objective - Vital Signs/Intake and Output Vital Signs (last 24 hours): Temp Pulse Resp BP Pulse Ox 98.8 F 89 18 101/64 99 04/23/17 07:00 04/23/17 07:00 04/23/17 07:00 04/23/17 07:00 04/23/17 07:00 Intake and Output: 04/23/17 04/23/17 06:59 18:59 Intake Total 1040 Output Total 750 Balance 290 - Medications Medications: Current Medications Acetaminophen (Tylenol 650mg/20.3ml Solution Ud) 650 mg PEG Q6 PRN PRN Reason: Fever >100.4 F Last Admin: 04/07/17 02:45 Dose: 650 mg Acetylcysteine (Acetylcysteine 20%) 4 ml INH RQ6 [facility] Last Admin: 04/23/17 08:08 Dose: 4 ml Albuterol/Ipratropium (Duoneb 3 Mg/0.5 Mg (3 Ml) Ud) 3 ml INH RQ6 [facility] Last Admin: 04/23/17 08:08 Dose: 3 ml Aspirin (Aspirin Chewable) 81 mg PO DAILY [facility] Last Admin: 04/23/17 09:08 Dose: 81 mg Bethanechol Chloride (Urecholine) 50 mg PO TID [facility] Last Admin: 04/23/17 09:08 Dose: 50 mg Carvedilol (Coreg) 3.125 mg PEG BID [facility] Last Admin: 04/23/17 09:11 Dose: Not Given Clopidogrel Bisulfate (Plavix) 75 mg PO DAILY [facility] Last Admin: 04/23/17 09:08 Dose: 75 mg Famotidine (Pepcid) 20 mg PEG BID [facility] Last Admin: 04/23/17 09:09 Dose: 20 mg Finasteride (Proscar) 5 mg PO DAILY [facility] Last Admin: 04/23/17 09:08 Dose: 5 mg Levetiracetam (Keppra) 500 mg PO BID [facility] Last Admin: 04/23/17 09:09 Dose: 500 mg Methylprednisolone (Solu-Medrol) 20 mg IVP DAILY [facility] Stop: 04/24/17 10:01 Last Admin: 04/23/17 09:10 Dose: 20 mg Saccharomyces Boulardii (Florastor) 250 mg PO TID [facility] Last Admin: 04/23/17 09:07 Dose: 250 mg Tamsulosin HCl (Flomax) 0.4 mg PO DAILY [facility] Last Admin: 04/23/17 09:09 Dose: 0.4 mg - Labs Labs: 04/20/17 07:11 04/20/17 07:11 PT 10.6 SECONDS (9.7-12.2) 11/24/15 14:10 INR 1.0 11/24/15 14:10 APTT 25 SECONDS (21-34) 11/24/15 14:10 Attending/Attestation - Attestation I have personally seen and examined this patient.: Yes I have fully participated in the care of the patient.: Yes I have reviewed all pertinent clinical information, including history, physical exam and plan: Yes Notes (Text): Patient seen and examined with the resident. Agree with the resident's evaluation, assessment and plan. UTI, Anoxic brain Injury, Cardiac arrest, respiratory failure now with trach collar
[2017-03-28] MEDS: levETIRAcetam 100 mg/ml (5ml) Oral Syringe PEG SCH ×2 (10:25→18:18)
[2017-03-28] MEDS: Saccharomyces Boulardi 250 mg Cap PO SCH ×3 (10:25→18:18)
[2017-03-28] MEDS: Enoxaparin 40 mg Syringe SC SCH (10:25)
--- NOTE | 2017-03-29 00:49 | CP.PCM.PN ---
<Alex Coyle - Last Filed: 03/29/17 00:46> Subjective - Date & Time of Evaluation Date of Evaluation: 03/29/17 Time of Evaluation: 00:46 - Subjective Subjective: Medicine Progress Note Pt seen and examined in no apparent acute distress. Patient remains clinically same. Patient has nonspontaneous, non directed movements. An ROS could not be obtained at this time due to patient's presentation. Objective - Vital Signs/Intake and Output Vital Signs (last 24 hours): Temp Pulse Resp BP Pulse Ox 98.4 F 81 20 111/78 98 03/28/17 16:00 03/28/17 16:00 03/28/17 16:00 03/28/17 16:00 03/28/17 16:00 Intake and Output: 03/28/17 03/29/17 18:59 06:59 Intake Total 680 238 Output Total 1100 Balance -420 238 - Medications Medications: Current Medications Aspirin (Aspirin Chewable) 81 mg PEG DAILY [facility] Last Admin: 03/28/17 10:25 Dose: 81 mg Bethanechol Chloride (Urecholine) 50 mg PEG TID [facility] Last Admin: 03/28/17 18:18 Dose: 50 mg Bisacodyl (Dulcolax) 5 mg PO Q72H PRN PRN Reason: Constipation Last Admin: 03/20/17 10:57 Dose: 5 mg Carvedilol (Coreg) 3.125 mg PEG BID [facility] Last Admin: 03/28/17 18:18 Dose: 3.125 mg Clopidogrel Bisulfate (Plavix) 75 mg PEG DAILY [facility] Last Admin: 03/28/17 10:25 Dose: 75 mg Emollient Ointment (Vaseline Oint) 5 gm TOP BID PRN PRN Reason: Dry skin Last Admin: 03/20/17 13:41 Dose: 5 gm Enoxaparin Sodium (Lovenox) 40 mg SC DAILY [facility] Last Admin: 03/28/17 10:25 Dose: 40 mg Famotidine (Pepcid) 20 mg PEG BID [facility] Last Admin: 03/28/17 18:18 Dose: 20 mg Finasteride (Proscar) 5 mg PEG DAILY [facility] Last Admin: 03/28/17 10:25 Dose: 5 mg Levetiracetam (Keppra) 500 mg PEG BID [facility] Last Admin: 03/28/17 18:18 Dose: 500 mg Saccharomyces Boulardii (Florastor) 250 mg PO TID [facility] Last Admin: 03/28/17 18:18 Dose: 250 mg Tamsulosin HCl (Flomax) 0.4 mg PEG DAILY [facility] Last Admin: 03/28/17 10:25 Dose: 0.4 mg - Labs Labs: 03/16/17 11:22 03/16/17 11:22 PT 10.6 SECONDS (9.7-12.2) 11/24/15 14:10 INR 1.0 11/24/15 14:10 APTT 25 SECONDS (21-34) 11/24/15 14:10 - Constitutional Appears: No Acute Distress, Chronically Ill - Head Exam Head Exam: ATRAUMATIC - Eye Exam Eye Exam: Normal appearance - ENT Exam ENT Exam: Mucous Membranes Moist - Neck Exam Additional comments: midline trach in place, dry with minimal secretions - Respiratory Exam Respiratory Exam: NORMAL BREATHING PATTERN. absent: Wheezes - Cardiovascular Exam Cardiovascular Exam: REGULAR RHYTHM, +S1, +S2 - GI/Abdominal Exam GI & Abdominal Exam: Soft, Normal Bowel Sounds. absent: Tenderness Additional comments: PEG in place, - Extremities Exam Extremities Exam: Normal Capillary Refill, Normal Inspection Additional comments: SCDs in place - Back Exam Back Exam: absent: Full ROM - Neurological Exam Neurological Exam: absent: Alert, Awake - Psychiatric Exam Psychiatric exam: Flat Affect - Skin Skin Exam: Normal Color, Warm Assessment and Plan - Assessment and Plan (Free Text) Assessment: 1. UTI Resolved 03/17/17 urinalysis was positive: Color Evelia, clarity turbid, protein 2+, blood 1+, Leukocyte Esterase 3+, WBC 22, RBC 7, Triple Phos Crystals high, bacteria many. The urine culture was positive for Proteus Mirabilis. Patient has a history of UTIs. His catheter was changed and the patient was started on Meropenem 1 gm IVPB Q8H for 5 days and was completed on 03/25. On 03/26/17 the repeat UA showed 1+ blood, 11 RBCs. [place] catheter in place CBI discontinued 01/08 Monitor 2. Anoxic brain injury s/p cardiac arrest in 05/2015 no acute changes Pt has non spontaneous movements. continue current management. Continue tube feeds- feeds decreased to 30cc/hr on 03/26/17 due to abdominal distention and diarrhea. No residuals noted. Start Florastor 250 mg po TID via PEG until April 25, 2017 for diarrhea. If diarrhea does not resolve, will order stool studies. 3. Respiratory failure Trach in place, continue daily monitory for secretions. No change in management at this time. Continue with aggressive suctioning multiple times a day per respiratory therapist. Minimal secretions noted Continue to monitor 4. Urinary Retention Resolved, Good urinary output. Flomax 0.4mg PEG daily Proscar 5mg PEG daily continue Bethanecol 50mg PEG TID- started after persistent retention and found to be effective. monitor I's and O's check bladder scan for residual urine three times weekly 5. Sacral Ulcers Cont with offloading/cushioning/turning Small area stage II in upper gluteal cleft- pink base Stage II ulcer present on sacrum Continue frequent turning, protective ointment and skin checks. Continue wound care 6. Constipation Resolved, patient currently has diarrhea. Nursing to record bowel movements Dulcolax 5mg PO Q72 hours prn constipation/no bowel movement 7. CAD (coronary artery disease) s/p cardiac stents on 06/13/15 Cont ASA 81mg via PEG daily Cont Coreg 3.125mg PEG BID Cont Plavix 75mg PO daily 8. Seizures Cont Keppra 500mg PEG BID for seizure prophylaxis Monitor for activity 9. Lower extremity edema Cont Lasix via PEG as needed. Improving Monitor 10. Prophylactic measure Pepcid 20 mg PEG BID Lovenox 40mg SC daily SCDs and offloading boots continue to turn and reposition q2h Continue to monitor medication administrations and clinical presentation weekly labs <Donavan Hallman - Last Filed: 04/23/17 12:17> Objective - Vital Signs/Intake and Output Vital Signs (last 24 hours): Temp Pulse Resp BP Pulse Ox 98.8 F 89 18 101/64 99 04/23/17 07:00 04/23/17 07:00 04/23/17 07:00 04/23/17 07:00 04/23/17 07:00 Intake and Output: 04/23/17 04/23/17 06:59 18:59 Intake Total 1040 Output Total 750 Balance 290 - Medications Medications: Current Medications Acetaminophen (Tylenol 650mg/20.3ml Solution Ud) 650 mg PEG Q6 PRN PRN Reason: Fever >100.4 F Last Admin: 04/07/17 02:45 Dose: 650 mg Acetylcysteine (Acetylcysteine 20%) 4 ml INH RQ6 [facility] Last Admin: 04/23/17 08:08 Dose: 4 ml Albuterol/Ipratropium (Duoneb 3 Mg/0.5 Mg (3 Ml) Ud) 3 ml INH RQ6 [facility] Last Admin: 04/23/17 08:08 Dose: 3 ml Aspirin (Aspirin Chewable) 81 mg PO DAILY [facility] Last Admin: 04/23/17 09:08 Dose: 81 mg Bethanechol Chloride (Urecholine) 50 mg PO TID [facility] Last Admin: 04/23/17 09:08 Dose: 50 mg Carvedilol (Coreg) 3.125 mg PEG BID [facility] Last Admin: 04/23/17 09:11 Dose: Not Given Clopidogrel Bisulfate (Plavix) 75 mg PO DAILY [facility] Last Admin: 04/23/17 09:08 Dose: 75 mg Famotidine (Pepcid) 20 mg PEG BID [facility] Last Admin: 04/23/17 09:09 Dose: 20 mg Finasteride (Proscar) 5 mg PO DAILY [facility] Last Admin: 04/23/17 09:08 Dose: 5 mg Levetiracetam (Keppra) 500 mg PO BID [facility] Last Admin: 04/23/17 09:09 Dose: 500 mg Methylprednisolone (Solu-Medrol) 20 mg IVP DAILY [facility] Stop: 04/24/17 10:01 Last Admin: 04/23/17 09:10 Dose: 20 mg Saccharomyces Boulardii (Florastor) 250 mg PO TID [facility] Last Admin: 04/23/17 09:07 Dose: 250 mg Tamsulosin HCl (Flomax) 0.4 mg PO DAILY [facility] Last Admin: 04/23/17 09:09 Dose: 0.4 mg - Labs Labs: 04/20/17 07:11 04/20/17 07:11 PT 10.6 SECONDS (9.7-12.2) 11/24/15 14:10 INR 1.0 11/24/15 14:10 APTT 25 SECONDS (21-34) 11/24/15 14:10 Attending/Attestation - Attestation I have personally seen and examined this patient.: Yes I have fully participated in the care of the patient.: Yes I have reviewed all pertinent clinical information, including history, physical exam and plan: Yes Notes (Text): Patient seen and examined with the resident. Agree with the resident's evaluation, assessment and plan. UTI, Anoxic brain Injury, Cardiac arrest, respiratory failure now with trach collar
[2017-03-29] MEDS: Enoxaparin 40 mg Syringe SC SCH (09:24)
[2017-03-29] MEDS: levETIRAcetam 100 mg/ml (5ml) Oral Syringe PEG SCH ×2 (09:24→19:30)
[2017-03-29] MEDS: Petrolatum Oint Foilpak (5 gm) TOP PRN (09:27)
[2017-03-29] MEDS: Saccharomyces Boulardi 250 mg Cap PO SCH ×3 (10:58→19:28)
--- NOTE | 2017-03-30 07:42 | CP.PCM.PN ---
<Imani Ramon - Last Filed: 03/30/17 15:24> Subjective - Date & Time of Evaluation Date of Evaluation: 03/30/17 Time of Evaluation: 07:45 - Subjective Subjective: PGY1 Medicine note for Dr. Ying Patient seen and examined at bedside. Clinically unchanged. Afebrile with VSS Patient had 1BM and has good UO PEG feeds @ 30cc/hr and patient tolerating. Patient lying in bed in no acute distress this AM Patient has nonspontaneous, non directed movements ROS unobtainable Objective - Vital Signs/Intake and Output Vital Signs (last 24 hours): Temp Pulse Resp BP Pulse Ox 97.5 F L 87 20 129/85 98 03/30/17 00:02 03/30/17 00:02 03/30/17 00:02 03/30/17 00:02 03/30/17 00:02 Intake and Output: 03/30/17 03/30/17 06:59 18:59 Intake Total 230 Balance 230 - Medications Medications: Current Medications Aspirin (Aspirin Chewable) 81 mg PEG DAILY [facility] Last Admin: 03/29/17 09:25 Dose: 81 mg Bethanechol Chloride (Urecholine) 50 mg PEG TID [facility] Last Admin: 03/29/17 19:28 Dose: 50 mg Bisacodyl (Dulcolax) 5 mg PO Q72H PRN PRN Reason: Constipation Last Admin: 03/20/17 10:57 Dose: 5 mg Carvedilol (Coreg) 3.125 mg PEG BID [facility] Last Admin: 03/29/17 19:28 Dose: 3.125 mg Clopidogrel Bisulfate (Plavix) 75 mg PEG DAILY [facility] Last Admin: 03/29/17 09:25 Dose: 75 mg Emollient Ointment (Vaseline Oint) 5 gm TOP BID PRN PRN Reason: Dry skin Last Admin: 03/29/17 09:27 Dose: 5 gm Famotidine (Pepcid) 20 mg PEG BID [facility] Last Admin: 03/29/17 19:30 Dose: 20 mg Finasteride (Proscar) 5 mg PEG DAILY [facility] Last Admin: 03/29/17 09:24 Dose: 5 mg Levetiracetam (Keppra) 500 mg PEG BID [facility] Last Admin: 03/29/17 19:30 Dose: 500 mg Saccharomyces Boulardii (Florastor) 250 mg PO TID [facility] Last Admin: 03/29/17 19:28 Dose: 250 mg Tamsulosin HCl (Flomax) 0.4 mg PEG DAILY [facility] Last Admin: 03/29/17 09:25 Dose: 0.4 mg - Labs Labs: 03/16/17 11:22 03/16/17 11:22 PT 10.6 SECONDS (9.7-12.2) 11/24/15 14:10 INR 1.0 11/24/15 14:10 APTT 25 SECONDS (21-34) 11/24/15 14:10 - Constitutional Appears: No Acute Distress, Chronically Ill - Head Exam Head Exam: NORMAL INSPECTION - Eye Exam Eye Exam: Normal appearance. absent: Conjunctival injection, Scleral icterus - ENT Exam ENT Exam: Mucous Membranes Dry - Neck Exam Additional comments: midline trach in place with thick secretions - Respiratory Exam Respiratory Exam: NORMAL BREATHING PATTERN. absent: Accessory Muscle Use, Decreased Breath Sounds, Rhonchi, Wheezes, Respiratory Distress - Cardiovascular Exam Cardiovascular Exam: REGULAR RHYTHM, +S1, +S2. absent: Bradycardia, Tachycardia - GI/Abdominal Exam GI & Abdominal Exam: Soft, Normal Bowel Sounds Additional comments: PEG in place - Extremities Exam Extremities Exam: Normal Capillary Refill, Normal Inspection. absent: Pedal Edema Additional comments: SCDs in place - Neurological Exam Neurological Exam: Awake - Skin Skin Exam: Dry, Intact, Normal Color, Warm Assessment and Plan - Assessment and Plan (Free Text) Assessment: 66 yo M with unknown pmhx who was found unresponsive in driveway s/p cardiac arrest and anoxic encephalopathy Plan: 1. UTI Resolved 03/17/17 urinalysis was positive: Color Evelia, clarity turbid, protein 2+, blood 1+, Leukocyte Esterase 3+, WBC 22, RBC 7, Triple Phos Crystals high, bacteria many. The urine culture was positive for Proteus Mirabilis. Patient has a history of UTIs. His catheter was changed and the patient was started on Meropenem 1 gm IVPB Q8H for 5 days and was completed on 03/25. On 03/26/17 the repeat UA showed 1+ blood, 11 RBCs. [place] catheter in place CBI discontinued 01/08 Monitor 2. Anoxic brain injury s/p cardiac arrest in 05/2015 no acute changes Pt has non spontaneous movements. continue current management. Continue tube feeds- feeds decreased to 30cc/hr Florastor 250mg PO TID via PEG 3. Respiratory failure Trach in place, continue daily monitory for secretions. No change in management at this time. Continue with aggressive suctioning multiple times a day per respiratory therapist. Thick secretions Duoneb 3ml INH Q8 and Mucomist 4ml INH Q8 Continue to monitor 4. Urinary Retention Resolved, Good urinary output. Flomax 0.4mg PEG daily Proscar 5mg PEG daily continue Bethanecol 50mg PEG TID- started after persistent retention and found to be effective. monitor I's and O's check bladder scan for residual urine three times weekly 5. Sacral Ulcers Cont with offloading/cushioning/turning Small area stage II in upper gluteal cleft- pink base Stage II ulcer present on sacrum- pink base healing Continue frequent turning, protective ointment and skin checks. Continue wound care 6. Constipation Resolved, patient currently has diarrhea. Nursing to record bowel movements Dulcolax 5mg PO Q72 hours prn constipation/no bowel movement 7. CAD (coronary artery disease) s/p cardiac stents on 06/13/15 Cont ASA 81mg via PEG daily Cont Coreg 3.125mg PEG BID Cont Plavix 75mg PO daily 8. Seizures Cont Keppra 500mg PEG BID for seizure prophylaxis Monitor for activity 9. Lower extremity edema Cont Lasix via PEG as needed. Improving Monitor 10. Prophylactic measure Pepcid 20 mg PEG BID Lovenox 40mg SC daily SCDs and offloading boots continue to turn and reposition q2h Continue to monitor medication administrations and clinical presentation weekly labs Plan discussed with Dr. Stepan Ramon PGY1 <Donnell Ying - Last Filed: 03/30/17 16:59> Objective - Vital Signs/Intake and Output Vital Signs (last 24 hours): Temp Pulse Resp BP Pulse Ox 98.9 F 76 20 111/74 98 03/30/17 15:00 03/30/17 15:00 03/30/17 15:00 03/30/17 15:00 03/30/17 15:00 Intake and Output: 03/30/17 03/30/17 06:59 18:59 Intake Total 230 1030 Output Total 1000 Balance 230 30 - Medications Medications: Current Medications Acetylcysteine (Acetylcysteine 20%) 4 ml INH RQ8 [facility] Last Admin: 03/30/17 15:47 Dose: Not Given Albuterol/Ipratropium (Duoneb 3 Mg/0.5 Mg (3 Ml) Ud) 3 ml INH RQ8 [facility] Last Admin: 03/30/17 15:47 Dose: 3 ml Aspirin (Aspirin Chewable) 81 mg PEG DAILY [facility] Last Admin: 03/30/17 11:36 Dose: 81 mg Bethanechol Chloride (Urecholine) 50 mg PEG TID [facility] Last Admin: 03/30/17 13:41 Dose: 50 mg Bisacodyl (Dulcolax) 5 mg PO Q72H PRN PRN Reason: Constipation Last Admin: 03/20/17 10:57 Dose: 5 mg Carvedilol (Coreg) 3.125 mg PEG BID [facility] Last Admin: 03/30/17 11:34 Dose: 3.125 mg Clopidogrel Bisulfate (Plavix) 75 mg PEG DAILY [facility] Last Admin: 03/30/17 11:34 Dose: 75 mg Emollient Ointment (Vaseline Oint) 5 gm TOP BID PRN PRN Reason: Dry skin Last Admin: 03/29/17 09:27 Dose: 5 gm Enoxaparin Sodium (Lovenox) 40 mg SC DAILY [facility] Last Admin: 03/30/17 11:36 Dose: 40 mg Famotidine (Pepcid) 20 mg PEG BID [facility] Last Admin: 03/30/17 11:35 Dose: 20 mg Finasteride (Proscar) 5 mg PEG DAILY [facility] Last Admin: 03/30/17 11:36 Dose: 5 mg Levetiracetam (Keppra) 500 mg PEG BID [facility] Last Admin: 03/30/17 11:36 Dose: 500 mg Saccharomyces Boulardii (Florastor) 250 mg PO TID [facility] Last Admin: 03/30/17 13:41 Dose: 250 mg Tamsulosin HCl (Flomax) 0.4 mg PEG DAILY [facility] Last Admin: 03/30/17 11:35 Dose: 0.4 mg - Labs Labs: 03/30/17 07:25 03/30/17 07:25 PT 10.6 SECONDS (9.7-12.2) 11/24/15 14:10 INR 1.0 11/24/15 14:10 APTT 25 SECONDS (21-34) 11/24/15 14:10 Attending/Attestation - Attestation I have personally seen and examined this patient.: Yes I have fully participated in the care of the patient.: Yes I have reviewed all pertinent clinical information, including history, physical exam and plan: Yes Notes (Text): 03/30/17 16:59 Patient was seen and examined at bedside with the resident I discussed the plan of care with the resident I reviewed patient's chart, medical records, labs, imaging studies and I agree with the history and physical and assessment/plan by the resident.
[2017-03-30 07:44] LABS: ALBUMIN 3.8 g/dL (3.5-5.0)
[2017-03-30 07:46] LABS: BASO % 0.3 % (0.0-2.0); EOS % 3.4 % (0.0-4.0); GFR NON-AFRICAN AMERICAN > 60; HEMOGLOBIN 12.9 g/dL (12.0-18.0); LYMPH % 19.8 % (20.0-40.0); MEAN CELL VOLUME 89.2 fL (80.0-94.0); MEAN CORPUSCULAR HEMOGLOBIN 28.6 pg (27.0-31.0); MEAN PLATELET VOLUME 9.5 fL (7.2-11.7); MONO % 8.6 % (0.0-10.0); NEUT % 67.9 % (50.0-75.0); RBC 4.51 Mil/uL (4.40-5.90); RED CELL DISTRIBUTION WIDTH 15.4 % (11.5-14.5); WHITE BLOOD COUNT 9.2 K/uL (4.8-10.8)
[2017-03-30 07:47] LABS: ALB/GLOB RATIO 0.9 (1.0-2.1); ALT/SGPT 108 U/L (21-72); AST/SGOT 64 U/L (17-59); BLOOD UREA NITROGEN 24 mg/dL (9-20); EOS # 0.3 K/uL (0.0-0.7); LYMPH # 1.8 K/uL (1.0-4.3); MONO # 0.8 K/uL (0.0-0.8); NEUT # 6.2 K/uL (1.8-7.0)
[2017-03-30 07:48] LABS: CALCIUM 8.7 mg/dl (8.6-10.4)
[2017-03-30] MEDS: Saccharomyces Boulardi 250 mg Cap PO SCH ×3 (11:34→17:27)
[2017-03-30] MEDS: Enoxaparin 40 mg Syringe SC SCH (11:36)
[2017-03-30] MEDS: levETIRAcetam 100 mg/ml (5ml) Oral Syringe PEG SCH ×2 (11:36→17:27)
[2017-03-30] MEDS: Albuterol-Ipratrop 3 mg / 0.5 (3 ml) UD INH SCH ×2 (14:18→15:47)
[2017-03-30] MEDS: Acetylcysteine 20% Inhal Soln (4ml) INH SCH ×2 (14:19→15:47)
[2017-03-31] MEDS: Albuterol-Ipratrop 3 mg / 0.5 (3 ml) UD INH SCH ×3 (00:31→16:58)
[2017-03-31] MEDS: Acetylcysteine 20% Inhal Soln (4ml) INH SCH ×3 (00:31→16:58)
--- NOTE | 2017-03-31 07:09 | CP.PCM.PN ---
<Imani Ramon - Last Filed: 03/31/17 13:23> Subjective - Date & Time of Evaluation Date of Evaluation: 03/31/17 Time of Evaluation: 09:15 - Subjective Subjective: PGY1 Medicine note for Dr. Ying Patient seen and examined at bedside. Clinically unchanged. Afebrile with VSS PEG feeds @ 30cc/hr and patient tolerating. Patient lying in bed in no acute distress this AM Patient has nonspontaneous, non directed movements ROS unobtainable Objective - Vital Signs/Intake and Output Vital Signs (last 24 hours): Temp Pulse Resp BP Pulse Ox 97.7 F 80 20 107/61 99 03/30/17 23:51 03/30/17 23:51 03/30/17 23:51 03/30/17 23:51 03/30/17 23:51 Intake and Output: 03/31/17 03/31/17 06:59 18:59 Intake Total 640 Output Total 200 Balance 440 - Medications Medications: Current Medications Acetylcysteine (Acetylcysteine 20%) 4 ml INH RQ8 [facility] Last Admin: 03/31/17 00:31 Dose: 4 ml Albuterol/Ipratropium (Duoneb 3 Mg/0.5 Mg (3 Ml) Ud) 3 ml INH RQ8 [facility] Last Admin: 03/31/17 00:31 Dose: 3 ml Aspirin (Aspirin Chewable) 81 mg PEG DAILY [facility] Last Admin: 03/30/17 11:36 Dose: 81 mg Bethanechol Chloride (Urecholine) 50 mg PEG TID [facility] Last Admin: 03/30/17 17:27 Dose: 50 mg Bisacodyl (Dulcolax) 5 mg PO Q72H PRN PRN Reason: Constipation Last Admin: 03/20/17 10:57 Dose: 5 mg Carvedilol (Coreg) 3.125 mg PEG BID [facility] Last Admin: 03/30/17 17:27 Dose: 3.125 mg Clopidogrel Bisulfate (Plavix) 75 mg PEG DAILY [facility] Last Admin: 03/30/17 11:34 Dose: 75 mg Emollient Ointment (Vaseline Oint) 5 gm TOP BID PRN PRN Reason: Dry skin Last Admin: 03/29/17 09:27 Dose: 5 gm Enoxaparin Sodium (Lovenox) 40 mg SC DAILY [facility] Last Admin: 03/30/17 11:36 Dose: 40 mg Famotidine (Pepcid) 20 mg PEG BID [facility] Last Admin: 03/30/17 17:27 Dose: 20 mg Finasteride (Proscar) 5 mg PEG DAILY [facility] Last Admin: 03/30/17 11:36 Dose: 5 mg Levetiracetam (Keppra) 500 mg PEG BID [facility] Last Admin: 03/30/17 17:27 Dose: 500 mg Saccharomyces Boulardii (Florastor) 250 mg PO TID [facility] Last Admin: 03/30/17 17:27 Dose: 250 mg Tamsulosin HCl (Flomax) 0.4 mg PEG DAILY [facility] Last Admin: 03/30/17 11:35 Dose: 0.4 mg - Labs Labs: 03/30/17 07:25 03/30/17 07:25 PT 10.6 SECONDS (9.7-12.2) 11/24/15 14:10 INR 1.0 11/24/15 14:10 APTT 25 SECONDS (21-34) 11/24/15 14:10 - Constitutional Appears: No Acute Distress, Chronically Ill - Head Exam Head Exam: NORMAL INSPECTION - Eye Exam Eye Exam: Normal appearance - ENT Exam ENT Exam: Mucous Membranes Dry - Neck Exam Additional comments: midline trach in place with thick secretions - Respiratory Exam Respiratory Exam: NORMAL BREATHING PATTERN. absent: Accessory Muscle Use, Rales , Rhonchi, Wheezes, Respiratory Distress - Cardiovascular Exam Cardiovascular Exam: REGULAR RHYTHM, +S1, +S2. absent: Murmur - GI/Abdominal Exam GI & Abdominal Exam: Soft, Normal Bowel Sounds Additional comments: PEG in place - Extremities Exam Extremities Exam: Normal Inspection. absent: Pedal Edema Additional comments: SCDs in place offloading boots secure - Neurological Exam Neurological Exam: Awake - Skin Skin Exam: Dry, Intact, Normal Color, Warm Assessment and Plan - Assessment and Plan (Free Text) Assessment: 66 yo M with unknown pmhx who was found unresponsive in driveway s/p cardiac arrest and anoxic encephalopathy Plan: 1. UTI Resolved 03/17/17 urinalysis was positive: Color Evelia, clarity turbid, protein 2+, blood 1+, Leukocyte Esterase 3+, WBC 22, RBC 7, Triple Phos Crystals high, bacteria many. The urine culture was positive for Proteus Mirabilis. Patient has a history of UTIs. His catheter was changed and the patient was started on Meropenem 1 gm IVPB Q8H for 5 days and was completed on 03/25. On 03/26/17 the repeat UA showed 1+ blood, 11 RBCs. [place] catheter in place CBI discontinued 01/08 Monitor 2. Anoxic brain injury s/p cardiac arrest in 05/2015 no acute changes Pt has non spontaneous movements. continue current management. Continue tube feeds- feeds decreased to 30cc/hr Florastor 250mg PO TID via PEG 3. Respiratory failure Trach in place, continue daily monitory for secretions. No change in management at this time. Continue with aggressive suctioning multiple times a day per respiratory therapist. Thick secretions Duoneb 3ml INH Q8 and Mucomist 4ml INH Q8 Continue to monitor 4. Urinary Retention Resolved, Good urinary output. Flomax 0.4mg PEG daily Proscar 5mg PEG daily continue Bethanecol 50mg PEG TID- started after persistent retention and found to be effective. monitor I's and O's check bladder scan for residual urine three times weekly 5. Sacral Ulcers Cont with offloading/cushioning/turning Small area stage II in upper gluteal cleft- pink base Stage II ulcer present on sacrum- pink base healing Continue frequent turning, protective ointment and skin checks. Continue wound care 6. Constipation Resolved, patient currently has diarrhea. Nursing to record bowel movements Dulcolax 5mg PO Q72 hours prn constipation/no bowel movement 7. CAD (coronary artery disease) s/p cardiac stents on 06/13/15 Cont ASA 81mg via PEG daily Cont Coreg 3.125mg PEG BID Cont Plavix 75mg PO daily 8. Seizures Cont Keppra 500mg PEG BID for seizure prophylaxis Monitor for activity 9. Lower extremity edema Cont Lasix via PEG as needed. Improving Monitor 10. Prophylactic measure Pepcid 20 mg PEG BID Lovenox 40mg SC daily SCDs and offloading boots continue to turn and reposition q2h Continue to monitor medication administrations and clinical presentation weekly labs Plan discussed with Dr. Stepan Ramon PGY1 <Donnell Ying - Last Filed: 03/31/17 18:13> Objective - Vital Signs/Intake and Output Vital Signs (last 24 hours): Temp Pulse Resp BP Pulse Ox 97.9 F 72 20 128/73 98 03/31/17 15:00 05/09/17 15:00 03/31/17 15:00 03/31/17 15:00 03/31/17 15:00 Intake and Output: 03/31/17 03/31/17 06:59 18:59 Intake Total 1080 440 Output Total 400 400 Balance 680 40 - Medications Medications: Current Medications Acetylcysteine (Acetylcysteine 20%) 4 ml INH RQ8 [facility] Last Admin: 03/31/17 16:58 Dose: 4 ml Albuterol/Ipratropium (Duoneb 3 Mg/0.5 Mg (3 Ml) Ud) 3 ml INH RQ8 [facility] Last Admin: 03/31/17 16:58 Dose: 3 ml Aspirin (Aspirin Chewable) 81 mg PEG DAILY [facility] Last Admin: 03/31/17 09:14 Dose: 81 mg Bethanechol Chloride (Urecholine) 50 mg PEG TID [facility] Last Admin: 03/31/17 17:10 Dose: 50 mg Bisacodyl (Dulcolax) 5 mg PO Q72H PRN PRN Reason: Constipation Last Admin: 03/20/17 10:57 Dose: 5 mg Carvedilol (Coreg) 3.125 mg PEG BID [facility] Last Admin: 03/31/17 17:10 Dose: 3.125 mg Clopidogrel Bisulfate (Plavix) 75 mg PEG DAILY [facility] Last Admin: 03/31/17 09:14 Dose: 75 mg Emollient Ointment (Vaseline Oint) 5 gm TOP BID PRN PRN Reason: Dry skin Last Admin: 03/29/17 09:27 Dose: 5 gm Enoxaparin Sodium (Lovenox) 40 mg SC DAILY [facility] Last Admin: 03/31/17 09:13 Dose: 40 mg Famotidine (Pepcid) 20 mg PEG BID [facility] Last Admin: 03/31/17 17:10 Dose: 20 mg Finasteride (Proscar) 5 mg PEG DAILY [facility] Last Admin: 03/31/17 09:14 Dose: 5 mg Levetiracetam (Keppra) 500 mg PEG BID [facility] Last Admin: 03/31/17 17:09 Dose: 500 mg Saccharomyces Boulardii (Florastor) 250 mg PO TID [facility] Last Admin: 03/31/17 17:09 Dose: 250 mg Tamsulosin HCl (Flomax) 0.4 mg PEG DAILY [facility] Last Admin: 03/31/17 09:14 Dose: 0.4 mg - Labs Labs: 03/30/17 07:25 03/30/17 07:25 PT 10.6 SECONDS (9.7-12.2) 11/24/15 14:10 INR 1.0 11/24/15 14:10 APTT 25 SECONDS (21-34) 11/24/15 14:10 Attending/Attestation - Attestation I have personally seen and examined this patient.: Yes I have fully participated in the care of the patient.: Yes I have reviewed all pertinent clinical information, including history, physical exam and plan: Yes Notes (Text): 03/31/17 18:13 Patient was seen and examined at bedside Continue current management Discussed the plan of care with the resident and agree with the above history and physical and assessment/plan but the resident.
[2017-03-31] MEDS: Enoxaparin 40 mg Syringe SC SCH (09:13)
[2017-03-31] MEDS: Saccharomyces Boulardi 250 mg Cap PO SCH ×3 (09:13→17:09)
[2017-03-31] MEDS: levETIRAcetam 100 mg/ml (5ml) Oral Syringe PEG SCH ×2 (09:14→17:09)
[2017-04-01] MEDS: Albuterol-Ipratrop 3 mg / 0.5 (3 ml) UD INH SCH ×3 (01:31→15:58)
[2017-04-01] MEDS: Acetylcysteine 20% Inhal Soln (4ml) INH SCH ×3 (01:31→15:58)
--- NOTE | 2017-04-01 07:18 | CP.PCM.PN ---
<Imani Ramon - Last Filed: 04/01/17 10:48> Subjective - Date & Time of Evaluation Date of Evaluation: 04/01/17 Time of Evaluation: 07:45 - Subjective Subjective: PGY1 Medicine note for Dr. Ying Patient seen and examined at bedside. Clinically unchanged. Afebrile 97.9F with VSS: BP 111/79 HR 85 O2 97% on trach collar at Fi)@ 30% PEG feeds @ 30cc/hr and patient tolerating. Patient lying in bed in no acute distress this AM Patient has good UO with [place] cath and had 3 BM yesterday- none this morning Patient has nonspontaneous, non directed movements ROS unobtainable Objective - Vital Signs/Intake and Output Vital Signs (last 24 hours): Temp Pulse Resp BP Pulse Ox 98.3 F 86 18 125/75 98 04/01/17 00:00 04/01/17 00:00 04/01/17 00:00 04/01/17 00:00 04/01/17 00:00 Intake and Output: 04/01/17 04/01/17 06:59 18:59 Intake Total 440 Output Total 100 Balance 340 - Medications Medications: Current Medications Acetylcysteine (Acetylcysteine 20%) 4 ml INH RQ8 [facility] Last Admin: 04/01/17 01:31 Dose: 4 ml Albuterol/Ipratropium (Duoneb 3 Mg/0.5 Mg (3 Ml) Ud) 3 ml INH RQ8 [facility] Last Admin: 04/01/17 01:31 Dose: 3 ml Aspirin (Aspirin Chewable) 81 mg PEG DAILY [facility] Last Admin: 03/31/17 09:14 Dose: 81 mg Bethanechol Chloride (Urecholine) 50 mg PEG TID [facility] Last Admin: 03/31/17 17:10 Dose: 50 mg Bisacodyl (Dulcolax) 5 mg PO Q72H PRN PRN Reason: Constipation Last Admin: 03/20/17 10:57 Dose: 5 mg Carvedilol (Coreg) 3.125 mg PEG BID [facility] Last Admin: 03/31/17 17:10 Dose: 3.125 mg Clopidogrel Bisulfate (Plavix) 75 mg PEG DAILY [facility] Last Admin: 03/31/17 09:14 Dose: 75 mg Emollient Ointment (Vaseline Oint) 5 gm TOP BID PRN PRN Reason: Dry skin Last Admin: 03/29/17 09:27 Dose: 5 gm Enoxaparin Sodium (Lovenox) 40 mg SC DAILY [facility] Last Admin: 03/31/17 09:13 Dose: 40 mg Famotidine (Pepcid) 20 mg PEG BID [facility] Last Admin: 03/31/17 17:10 Dose: 20 mg Finasteride (Proscar) 5 mg PEG DAILY [facility] Last Admin: 03/31/17 09:14 Dose: 5 mg Levetiracetam (Keppra) 500 mg PEG BID [facility] Last Admin: 03/31/17 17:09 Dose: 500 mg Saccharomyces Boulardii (Florastor) 250 mg PO TID [facility] Last Admin: 03/31/17 17:09 Dose: 250 mg Tamsulosin HCl (Flomax) 0.4 mg PEG DAILY [facility] Last Admin: 03/31/17 09:14 Dose: 0.4 mg - Labs Labs: 03/30/17 07:25 03/30/17 07:25 PT 10.6 SECONDS (9.7-12.2) 11/24/15 14:10 INR 1.0 11/24/15 14:10 APTT 25 SECONDS (21-34) 11/24/15 14:10 - Constitutional Appears: No Acute Distress, Chronically Ill - Head Exam Head Exam: NORMAL INSPECTION - Eye Exam Eye Exam: Normal appearance. absent: Conjunctival injection, Scleral icterus - ENT Exam ENT Exam: Mucous Membranes Dry - Neck Exam Additional comments: trach collar in place- secretions improved - Respiratory Exam Respiratory Exam: Clear to Ausculation Bilateral, NORMAL BREATHING PATTERN. absent: Accessory Muscle Use, Rales, Rhonchi, Wheezes, Respiratory Distress - Cardiovascular Exam Cardiovascular Exam: REGULAR RHYTHM, +S1, +S2. absent: Murmur - GI/Abdominal Exam GI & Abdominal Exam: Soft, Normal Bowel Sounds. absent: Firm, Guarding, Rigid Additional comments: PEG in place - Rectal Exam Rectal Exam: Deferred - Extremities Exam Extremities Exam: absent: Pedal Edema Additional comments: SCDs in place offloading boots secure - Back Exam Additional comments: healing sacral ulcer with pink base - Neurological Exam Neurological Exam: Awake - Skin Skin Exam: Dry, Intact, Normal Color Assessment and Plan - Assessment and Plan (Free Text) Assessment: 66 yo M with unknown pmhx who was found unresponsive in driveway s/p cardiac arrest and anoxic encephalopathy Plan: 1. UTI Resolved repeat UA 03/26: clear. lek esterase negative and urine bacteria rare 03/17/17 urinalysis was positive: Color Evelia, clarity turbid, protein 2+, blood 1+, Leukocyte Esterase 3+, WBC 22, RBC 7, Triple Phos Crystals high, bacteria many. The urine culture was positive for Proteus Mirabilis. Patient has a history of UTIs. His catheter was changed and the patient was started on Meropenem 1 gm IVPB Q8H for 5 days and was completed on 03/25. On 03/26/17 the repeat UA showed 1+ blood, 11 RBCs. [place] catheter in place CBI discontinued 01/08 Monitor 2. Anoxic brain injury s/p cardiac arrest in 05/2015 no acute changes Pt has non spontaneous movements. continue current management. Continue tube feeds- feeds decreased to 30cc/hr Florastor 250mg PO TID via PEG 3. Respiratory failure Trach in place, continue daily monitory for secretions. No change in management at this time. Continue with aggressive suctioning multiple times a day per respiratory therapist. Thick secretions Duoneb 3ml INH Q8 and Mucomist 4ml INH Q8 Continue to monitor 4. Urinary Retention Resolved, Good urinary output. Flomax 0.4mg PEG daily Proscar 5mg PEG daily continue Bethanecol 50mg PEG TID- started after persistent retention and found to be effective. monitor I's and O's check bladder scan for residual urine three times weekly 5. Sacral Ulcers Cont with offloading/cushioning/turning Small area stage II in upper gluteal cleft- pink base Stage II ulcer present on sacrum- pink base healing Continue frequent turning, protective ointment and skin checks. Continue wound care 6. Constipation Resolved, patient currently has diarrhea. Nursing to record bowel movements Dulcolax 5mg PO Q72 hours prn constipation/no bowel movement 7. CAD (coronary artery disease) s/p cardiac stents on 06/13/15 Cont ASA 81mg via PEG daily Cont Coreg 3.125mg PEG BID Cont Plavix 75mg PO daily 8. Seizures Cont Keppra 500mg PEG BID for seizure prophylaxis Monitor for activity 9. Lower extremity edema Improved Monitor 10. Prophylactic measure Pepcid 20 mg PEG BID Lovenox 40mg SC daily SCDs and offloading boots continue to turn and reposition q2h Continue to monitor medication administrations and clinical presentation weekly labs Plan discussed with Dr. Stepan Ramon PGY1 <Donnell Ying - Last Filed: 04/01/17 17:35> Objective - Vital Signs/Intake and Output Vital Signs (last 24 hours): Temp Pulse Resp BP Pulse Ox 97.9 F 85 20 111/79 97 04/01/17 08:46 04/01/17 08:46 04/01/17 08:46 04/01/17 08:46 04/01/17 08:46 Intake and Output: 04/01/17 04/01/17 06:59 18:59 Intake Total 440 680 Output Total 100 600 Balance 340 80 - Medications Medications: Current Medications Acetylcysteine (Acetylcysteine 20%) 4 ml INH RQ8 [facility] Last Admin: 04/01/17 15:58 Dose: 4 ml Albuterol/Ipratropium (Duoneb 3 Mg/0.5 Mg (3 Ml) Ud) 3 ml INH RQ8 [facility] Last Admin: 04/01/17 15:58 Dose: 3 ml Aspirin (Aspirin Chewable) 81 mg PEG DAILY [facility] Last Admin: 04/01/17 10:40 Dose: 81 mg Bethanechol Chloride (Urecholine) 50 mg PEG TID [facility] Last Admin: 04/01/17 17:32 Dose: 50 mg Bisacodyl (Dulcolax) 5 mg PO Q72H PRN PRN Reason: Constipation Last Admin: 03/20/17 10:57 Dose: 5 mg Carvedilol (Coreg) 3.125 mg PEG BID [facility] Last Admin: 04/01/17 17:32 Dose: 3.125 mg Clopidogrel Bisulfate (Plavix) 75 mg PEG DAILY [facility] Last Admin: 04/01/17 10:40 Dose: 75 mg Emollient Ointment (Vaseline Oint) 5 gm TOP BID PRN PRN Reason: Dry skin Last Admin: 03/29/17 09:27 Dose: 5 gm Enoxaparin Sodium (Lovenox) 40 mg SC DAILY [facility] Last Admin: 04/01/17 10:40 Dose: 40 mg Famotidine (Pepcid) 20 mg PEG BID [facility] Last Admin: 04/01/17 17:32 Dose: 20 mg Finasteride (Proscar) 5 mg PEG DAILY [facility] Last Admin: 04/01/17 10:43 Dose: 5 mg Levetiracetam (Keppra) 500 mg PEG BID [facility] Last Admin: 04/01/17 17:32 Dose: 500 mg Saccharomyces Boulardii (Florastor) 250 mg PO TID [facility] Last Admin: 04/01/17 17:32 Dose: 250 mg Tamsulosin HCl (Flomax) 0.4 mg PEG DAILY [facility] Last Admin: 04/01/17 10:40 Dose: 0.4 mg - Labs Labs: 03/30/17 07:25 03/30/17 07:25 PT 10.6 SECONDS (9.7-12.2) 11/24/15 14:10 INR 1.0 11/24/15 14:10 APTT 25 SECONDS (21-34) 11/24/15 14:10 Attending/Attestation - Attestation I have personally seen and examined this patient.: Yes I have fully participated in the care of the patient.: Yes I have reviewed all pertinent clinical information, including history, physical exam and plan: Yes Notes (Text): 04/01/17 17:35 Patient was seen and examined at bedside with the resident Patient's clinical condition is unchanged We will continue current management Discussed the plan of care with the resident and agree with the above history and physical and assessment/plan by the resident
[2017-04-01] MEDS: Enoxaparin 40 mg Syringe SC SCH (10:40)
[2017-04-01] MEDS: levETIRAcetam 100 mg/ml (5ml) Oral Syringe PEG SCH ×2 (10:41→17:32)
[2017-04-01] MEDS: Saccharomyces Boulardi 250 mg Cap PO SCH ×2 (10:41→17:32)
[2017-04-02] MEDS: Acetylcysteine 20% Inhal Soln (4ml) INH SCH ×4 (01:23→23:47)
[2017-04-02] MEDS: Albuterol-Ipratrop 3 mg / 0.5 (3 ml) UD INH SCH ×4 (01:23→23:47)
[2017-04-02] MEDS: Saccharomyces Boulardi 250 mg Cap PO SCH ×3 (10:50→17:25)
[2017-04-02] MEDS: Enoxaparin 40 mg Syringe SC SCH (10:54)
[2017-04-02] MEDS: levETIRAcetam 100 mg/ml (5ml) Oral Syringe PEG SCH ×2 (10:58→17:35)
--- NOTE | 2017-04-02 11:43 | CP.PCM.PN ---
<Imani Ramon - Last Filed: 04/02/17 18:48> Subjective - Date & Time of Evaluation Date of Evaluation: 04/02/17 Time of Evaluation: 09:00 - Subjective Subjective: PGY1 Medicine note for Dr. Ying Patient seen and examined at bedside. Clinically unchanged. Afebrile 98.4F with VSS: BP 120/85 HR 72 O2 100% on trach collar at FiO2 @ 30% PEG feeds @ 30cc/hr and patient tolerating - changed to 40cc/hr Patient lying in bed in no acute distress this AM Patient has good UO with [place] cath and good BM Patient has nonspontaneous, non directed movements ROS unobtainable Objective - Vital Signs/Intake and Output Vital Signs (last 24 hours): Temp Pulse Resp BP Pulse Ox 98.8 F 80 20 102/58 L 100 04/02/17 08:28 04/02/17 08:28 04/02/17 08:28 04/02/17 08:28 04/02/17 08:28 Intake and Output: 04/02/17 04/02/17 06:59 18:59 Intake Total 880 Output Total 600 Balance 280 - Medications Medications: Current Medications Acetylcysteine (Acetylcysteine 20%) 4 ml INH RQ8 [facility] Last Admin: 04/02/17 08:40 Dose: 4 ml Albuterol/Ipratropium (Duoneb 3 Mg/0.5 Mg (3 Ml) Ud) 3 ml INH RQ8 [facility] Last Admin: 04/02/17 08:40 Dose: 3 ml Aspirin (Aspirin Chewable) 81 mg PEG DAILY [facility] Last Admin: 04/02/17 10:49 Dose: 81 mg Bethanechol Chloride (Urecholine) 50 mg PEG TID [facility] Last Admin: 04/01/17 17:32 Dose: 50 mg Bisacodyl (Dulcolax) 5 mg PO Q72H PRN PRN Reason: Constipation Last Admin: 03/20/17 10:57 Dose: 5 mg Carvedilol (Coreg) 3.125 mg PEG BID [facility] Last Admin: 04/02/17 10:49 Dose: 3.125 mg Clopidogrel Bisulfate (Plavix) 75 mg PEG DAILY [facility] Last Admin: 04/02/17 10:49 Dose: 75 mg Emollient Ointment (Vaseline Oint) 5 gm TOP BID PRN PRN Reason: Dry skin Last Admin: 03/29/17 09:27 Dose: 5 gm Enoxaparin Sodium (Lovenox) 40 mg SC DAILY [facility] Last Admin: 04/02/17 10:54 Dose: 40 mg Famotidine (Pepcid) 20 mg PEG BID [facility] Last Admin: 04/02/17 10:50 Dose: 20 mg Finasteride (Proscar) 5 mg PEG DAILY [facility] Last Admin: 04/02/17 10:59 Dose: 5 mg Levetiracetam (Keppra) 500 mg PEG BID [facility] Last Admin: 04/02/17 10:58 Dose: 500 mg Saccharomyces Boulardii (Florastor) 250 mg PO TID [facility] Last Admin: 04/02/17 10:56 Dose: 250 mg Tamsulosin HCl (Flomax) 0.4 mg PEG DAILY [facility] Last Admin: 04/02/17 10:49 Dose: 0.4 mg - Labs Labs: 03/30/17 07:25 03/30/17 07:25 PT 10.6 SECONDS (9.7-12.2) 11/24/15 14:10 INR 1.0 11/24/15 14:10 APTT 25 SECONDS (21-34) 11/24/15 14:10 - Constitutional Appears: No Acute Distress, Chronically Ill - Head Exam Head Exam: NORMAL INSPECTION - Eye Exam Eye Exam: Normal appearance. absent: Conjunctival injection, Scleral icterus - ENT Exam ENT Exam: Mucous Membranes Dry - Neck Exam Additional comments: trach collar in place - Respiratory Exam Respiratory Exam: Clear to Ausculation Bilateral, NORMAL BREATHING PATTERN. absent: Accessory Muscle Use, Rales, Rhonchi, Wheezes, Respiratory Distress - Cardiovascular Exam Cardiovascular Exam: REGULAR RHYTHM, +S1, +S2. absent: Murmur - GI/Abdominal Exam GI & Abdominal Exam: Soft, Normal Bowel Sounds Additional comments: PEG in place - Extremities Exam Extremities Exam: absent: Pedal Edema Additional comments: SCDs in place offloading boots secure - Back Exam Additional comments: healing sacral ulcer with pink base - Neurological Exam Neurological Exam: Awake - Skin Skin Exam: Dry, Intact, Normal Color, Warm Assessment and Plan - Assessment and Plan (Free Text) Assessment: 66 yo M with unknown pmhx who was found unresponsive in driveway s/p cardiac arrest and anoxic encephalopathy Plan: 1. UTI Resolved repeat UA 03/26: clear. lek esterase negative and urine bacteria rare 03/17/17 urinalysis was positive: Color Evelia, clarity turbid, protein 2+, blood 1+, Leukocyte Esterase 3+, WBC 22, RBC 7, Triple Phos Crystals high, bacteria many. The urine culture was positive for Proteus Mirabilis. Patient has a history of UTIs. His catheter was changed and the patient was started on Meropenem 1 gm IVPB Q8H for 5 days and was completed on 03/25. On 03/26/17 the repeat UA showed 1+ blood, 11 RBCs. [place] catheter in place CBI discontinued 01/08 Monitor 2. Anoxic brain injury s/p cardiac arrest in 05/2015 no acute changes Pt has non spontaneous movements. continue current management. Continue tube feeds- feeds decreased to 30cc/hr Florastor 250mg PO TID via PEG 3. Respiratory failure Trach in place, continue daily monitory for secretions. No change in management at this time. Continue with aggressive suctioning multiple times a day per respiratory therapist. Thick secretions Duoneb 3ml INH Q8 and Mucomist 4ml INH Q8 Continue to monitor 4. Urinary Retention Resolved, Good urinary output. Flomax 0.4mg PEG daily Proscar 5mg PEG daily continue Bethanecol 50mg PEG TID- started after persistent retention and found to be effective. monitor I's and O's check bladder scan for residual urine three times weekly 5. Sacral Ulcers Cont with offloading/cushioning/turning Small area stage II in upper gluteal cleft- pink base Stage II ulcer present on sacrum- pink base healing Continue frequent turning, protective ointment and skin checks. Continue wound care 6. Constipation Resolved, patient currently has diarrhea. Nursing to record bowel movements Dulcolax 5mg PO Q72 hours prn constipation/no bowel movement 7. CAD (coronary artery disease) s/p cardiac stents on 06/13/15 Cont ASA 81mg via PEG daily Cont Coreg 3.125mg PEG BID Cont Plavix 75mg PO daily 8. Seizures Cont Keppra 500mg PEG BID for seizure prophylaxis Monitor for activity 9. Lower extremity edema Improved Monitor 10. Prophylactic measure Pepcid 20 mg PEG BID Lovenox 40mg SC daily SCDs and offloading boots continue to turn and reposition q2h Feeds @ 40cc/hr Continue to monitor medication administrations and clinical presentation weekly labs Plan discussed with Dr. Stepan Ramon PGY1 <Donnell Ying - Last Filed: 04/03/17 15:37> Objective - Vital Signs/Intake and Output Vital Signs (last 24 hours): Temp Pulse Resp BP Pulse Ox 98.8 F 73 20 119/78 99 04/03/17 08:25 04/03/17 08:25 04/03/17 08:25 04/03/17 08:25 04/03/17 08:25 Intake and Output: 04/03/17 04/03/17 06:59 18:59 Intake Total 840 520 Output Total 750 450 Balance 90 70 - Medications Medications: Current Medications Acetylcysteine (Acetylcysteine 20%) 4 ml INH RQ8 [facility] Last Admin: 04/03/17 07:44 Dose: 4 ml Albuterol/Ipratropium (Duoneb 3 Mg/0.5 Mg (3 Ml) Ud) 3 ml INH RQ8 [facility] Last Admin: 04/03/17 07:43 Dose: 3 ml Aspirin (Aspirin Chewable) 81 mg PEG DAILY [facility] Last Admin: 04/03/17 10:44 Dose: 81 mg Bethanechol Chloride (Urecholine) 50 mg PEG TID [facility] Last Admin: 04/03/17 13:55 Dose: 50 mg Bisacodyl (Dulcolax) 5 mg PO Q72H PRN PRN Reason: Constipation Last Admin: 03/20/17 10:57 Dose: 5 mg Carvedilol (Coreg) 3.125 mg PEG BID [facility] Last Admin: 04/03/17 10:44 Dose: 3.125 mg Clopidogrel Bisulfate (Plavix) 75 mg PEG DAILY [facility] Last Admin: 04/03/17 10:44 Dose: 75 mg Emollient Ointment (Vaseline Oint) 5 gm TOP BID PRN PRN Reason: Dry skin Last Admin: 03/29/17 09:27 Dose: 5 gm Enoxaparin Sodium (Lovenox) 40 mg SC DAILY [facility] Last Admin: 04/03/17 10:44 Dose: 40 mg Famotidine (Pepcid) 20 mg PEG BID [facility] Last Admin: 04/03/17 10:44 Dose: 20 mg Finasteride (Proscar) 5 mg PEG DAILY [facility] Last Admin: 05/12/17 10:45 Dose: 5 mg Levetiracetam (Keppra) 500 mg PEG BID [facility] Last Admin: 04/03/17 10:45 Dose: 500 mg Saccharomyces Boulardii (Florastor) 250 mg PO TID [facility] Last Admin: 04/03/17 10:44 Dose: 250 mg Tamsulosin HCl (Flomax) 0.4 mg PEG DAILY [facility] Last Admin: 04/03/17 10:44 Dose: 0.4 mg - Labs Labs: 03/30/17 07:25 03/30/17 07:25 PT 10.6 SECONDS (9.7-12.2) 11/24/15 14:10 INR 1.0 11/24/15 14:10 APTT 25 SECONDS (21-34) 11/24/15 14:10 Attending/Attestation - Attestation I have personally seen and examined this patient.: Yes I have fully participated in the care of the patient.: Yes I have reviewed all pertinent clinical information, including history, physical exam and plan: Yes Notes (Text): 04/03/17 15:36 Patient was seen and examined at bedside with the resident No change in clinical condition Continue current management Awaiting placement.
[2017-04-03] MEDS: Albuterol-Ipratrop 3 mg / 0.5 (3 ml) UD INH SCH ×2 (07:43→16:40)
[2017-04-03] MEDS: Acetylcysteine 20% Inhal Soln (4ml) INH SCH ×2 (07:44→16:40)
[2017-04-03] MEDS: Enoxaparin 40 mg Syringe SC SCH (10:44)
[2017-04-03] MEDS: Saccharomyces Boulardi 250 mg Cap PO SCH ×3 (10:44→17:12)
[2017-04-03] MEDS: levETIRAcetam 100 mg/ml (5ml) Oral Syringe PEG SCH ×2 (10:45→17:12)
--- NOTE | 2017-04-03 11:21 | CP.PCM.PN ---
Addendum entered and electronically signed by Lauri Araya DO 04/03/17 11:21: - Constitutional Appears: No Acute Distress, Chronically Ill - Head Exam Head Exam: NORMAL INSPECTION - Eye Exam Eye Exam: Normal appearance. absent: Conjunctival injection, Scleral icterus - ENT Exam ENT Exam: Mucous Membranes Dry - Neck Exam Additional comments: trach collar in place - Respiratory Exam Respiratory Exam: Clear to Ausculation Bilateral, NORMAL BREATHING PATTERN. absent: Accessory Muscle Use, Rales, Rhonchi, Wheezes, Respiratory Distress - Cardiovascular Exam Cardiovascular Exam: REGULAR RHYTHM, +S1, +S2. absent: Murmur - GI/Abdominal Exam GI & Abdominal Exam: Soft, Normal Bowel Sounds Additional comments: PEG in place - Extremities Exam Extremities Exam: absent: Pedal Edema Additional comments: SCDs in place offloading boots secure - Back Exam Additional comments: healing sacral ulcer with pink base - Neurological Exam Neurological Exam: Awake - Skin Skin Exam: Dry, Intact, Normal Color, Warm Original Note: <Lauri Araya - Last Filed: 04/03/17 11:19> Subjective - Date & Time of Evaluation Date of Evaluation: 04/03/17 Time of Evaluation: 07:40 - Subjective Subjective: Medicine note- Hospitalist Service Patient was seen and examined at bedside. Patient is awake, not alert. Unable to obtain ROS due to clinical status. No events overnight, per nursing. Objective - Vital Signs/Intake and Output Vital Signs (last 24 hours): Temp Pulse Resp BP Pulse Ox 98.8 F 73 20 119/78 99 04/03/17 08:25 04/03/17 08:25 04/03/17 08:25 04/03/17 08:25 04/03/17 08:25 Intake and Output: 04/03/17 04/03/17 06:59 18:59 Intake Total 840 Output Total 750 Balance 90 - Medications Medications: Current Medications Acetylcysteine (Acetylcysteine 20%) 4 ml INH RQ8 [facility] Last Admin: 04/03/17 07:44 Dose: 4 ml Albuterol/Ipratropium (Duoneb 3 Mg/0.5 Mg (3 Ml) Ud) 3 ml INH RQ8 [facility] Last Admin: 04/03/17 07:43 Dose: 3 ml Aspirin (Aspirin Chewable) 81 mg PEG DAILY [facility] Last Admin: 04/03/17 10:44 Dose: 81 mg Bethanechol Chloride (Urecholine) 50 mg PEG TID [facility] Last Admin: 04/03/17 10:44 Dose: 50 mg Bisacodyl (Dulcolax) 5 mg PO Q72H PRN PRN Reason: Constipation Last Admin: 03/20/17 10:57 Dose: 5 mg Carvedilol (Coreg) 3.125 mg PEG BID [facility] Last Admin: 04/03/17 10:44 Dose: 3.125 mg Clopidogrel Bisulfate (Plavix) 75 mg PEG DAILY [facility] Last Admin: 04/03/17 10:44 Dose: 75 mg Emollient Ointment (Vaseline Oint) 5 gm TOP BID PRN PRN Reason: Dry skin Last Admin: 03/29/17 09:27 Dose: 5 gm Enoxaparin Sodium (Lovenox) 40 mg SC DAILY [facility] Last Admin: 04/03/17 10:44 Dose: 40 mg Famotidine (Pepcid) 20 mg PEG BID [facility] Last Admin: 04/03/17 10:44 Dose: 20 mg Finasteride (Proscar) 5 mg PEG DAILY [facility] Last Admin: 04/03/17 10:45 Dose: 5 mg Levetiracetam (Keppra) 500 mg PEG BID [facility] Last Admin: 04/03/17 10:45 Dose: 500 mg Saccharomyces Boulardii (Florastor) 250 mg PO TID [facility] Last Admin: 04/03/17 10:44 Dose: 250 mg Tamsulosin HCl (Flomax) 0.4 mg PEG DAILY [facility] Last Admin: 04/03/17 10:44 Dose: 0.4 mg - Labs Labs: 03/30/17 07:25 03/30/17 07:25 PT 10.6 SECONDS (9.7-12.2) 11/24/15 14:10 INR 1.0 11/24/15 14:10 APTT 25 SECONDS (21-34) 11/24/15 14:10 Assessment and Plan (1) Prophylactic measure Status: Acute (2) Anoxic encephalopathy Status: Acute (3) STEMI (ST elevation myocardial infarction) Status: Acute (4) Cardiac arrest Status: Acute (5) Seizures Status: Acute (6) Respiratory failure Status: Acute (7) Transaminitis Status: Acute (8) UTI (lower urinary tract infection) Status: Acute (9) Edema of upper extremity Status: Acute (10) Thrombophlebitis of superficial veins of upper extremities Status: Acute (11) Chest congestion Status: Acute (12) Bed sore Status: Acute - Assessment and Plan (Free Text) Assessment: 1. UTI Resolved repeat UA 03/26: clear. lek esterase negative and urine bacteria rare 03/17/17 urinalysis was positive: Color Evelia, clarity turbid, protein 2+, blood 1+, Leukocyte Esterase 3+, WBC 22, RBC 7, Triple Phos Crystals high, bacteria many. The urine culture was positive for Proteus Mirabilis. Patient has a history of UTIs. His catheter was changed and the patient was started on Meropenem 1 gm IVPB Q8H for 5 days and was completed on 03/25. On 03/26/17 the repeat UA showed 1+ blood, 11 RBCs. [place] catheter in place CBI discontinued 01/08 Monitor 2. Anoxic brain injury s/p cardiac arrest in 05/2015 no acute changes Pt has non spontaneous movements. continue current management. Continue tube feeds- feeds decreased to 30cc/hr Florastor 250mg PO TID via PEG 3. Respiratory failure Trach in place, continue daily monitory for secretions. No change in management at this time. Continue with aggressive suctioning multiple times a day per respiratory therapist. Thick secretions Duoneb 3ml INH Q8 and Mucomist 4ml INH Q8 Continue to monitor 4. Urinary Retention Resolved, Good urinary output. Flomax 0.4mg PEG daily Proscar 5mg PEG daily continue Bethanecol 50mg PEG TID- started after persistent retention and found to be effective. monitor I's and O's check bladder scan for residual urine three times weekly 5. Sacral Ulcers Cont with offloading/cushioning/turning Small area stage II in upper gluteal cleft- pink base Stage II ulcer present on sacrum- pink base healing Continue frequent turning, protective ointment and skin checks. Continue wound care 6. Constipation Resolved, patient currently has diarrhea. Nursing to record bowel movements Dulcolax 5mg PO Q72 hours prn constipation/no bowel movement 7. CAD (coronary artery disease) s/p cardiac stents on 06/13/15 Cont ASA 81mg via PEG daily Cont Coreg 3.125mg PEG BID Cont Plavix 75mg PO daily 8. Seizures Cont Keppra 500mg PEG BID for seizure prophylaxis Monitor for activity 9. Lower extremity edema Improved Monitor 10. Prophylactic measure Pepcid 20 mg PEG BID Lovenox 40mg SC daily SCDs and offloading boots continue to turn and reposition q2h Feeds @ 40cc/hr Continue to monitor medication administrations and clinical presentation weekly labs Plan discussed with Dr. Stepan Ramon PGY1 <Donnell Ying M - Last Filed: 04/04/17 15:51> Objective - Vital Signs/Intake and Output Vital Signs (last 24 hours): Temp Pulse Resp BP Pulse Ox 98.6 F 72 20 108/74 100 04/04/17 08:00 04/04/17 08:00 04/04/17 08:00 04/04/17 08:00 04/04/17 08:00 Intake and Output: 04/04/17 04/04/17 06:59 18:59 Intake Total 520 520 Output Total 200 300 Balance 320 220 - Medications Medications: Current Medications Acetylcysteine (Acetylcysteine 20%) 4 ml INH RQ8 [facility] Last Admin: 04/04/17 08:17 Dose: 4 ml Albuterol/Ipratropium (Duoneb 3 Mg/0.5 Mg (3 Ml) Ud) 3 ml INH RQ8 [facility] Last Admin: 04/04/17 08:17 Dose: 3 ml Aspirin (Aspirin Chewable) 81 mg PEG DAILY [facility] Last Admin: 04/04/17 10:55 Dose: 81 mg Bethanechol Chloride (Urecholine) 50 mg PEG TID [facility] Last Admin: 04/04/17 13:27 Dose: 50 mg Bisacodyl (Dulcolax) 5 mg PO Q72H PRN PRN Reason: Constipation Last Admin: 03/20/17 10:57 Dose: 5 mg Carvedilol (Coreg) 3.125 mg PEG BID [facility] Last Admin: 04/04/17 10:55 Dose: 3.125 mg Clopidogrel Bisulfate (Plavix) 75 mg PEG DAILY [facility] Last Admin: 04/04/17 10:55 Dose: 75 mg Emollient Ointment (Vaseline Oint) 5 gm TOP BID PRN PRN Reason: Dry skin Last Admin: 03/29/17 09:27 Dose: 5 gm Enoxaparin Sodium (Lovenox) 40 mg SC DAILY [facility] Last Admin: 04/04/17 10:55 Dose: 40 mg Famotidine (Pepcid) 20 mg PEG BID [facility] Last Admin: 04/04/17 10:55 Dose: 20 mg Finasteride (Proscar) 5 mg PEG DAILY [facility] Last Admin: 04/04/17 10:56 Dose: 5 mg Levetiracetam (Keppra) 500 mg PEG BID [facility] Last Admin: 04/04/17 10:56 Dose: 500 mg Saccharomyces Boulardii (Florastor) 250 mg PO TID [facility] Last Admin: 04/04/17 13:27 Dose: 250 mg Tamsulosin HCl (Flomax) 0.4 mg PEG DAILY [facility] Last Admin: 04/04/17 10:55 Dose: 0.4 mg - Labs Labs: 03/30/17 07:25 03/30/17 07:25 PT 10.6 SECONDS (9.7-12.2) 11/24/15 14:10 INR 1.0 11/24/15 14:10 APTT 25 SECONDS (21-34) 11/24/15 14:10 Attending/Attestation - Attestation I have personally seen and examined this patient.: Yes I have fully participated in the care of the patient.: Yes I have reviewed all pertinent clinical information, including history, physical exam and plan: Yes Notes (Text): 04/04/17 15:50 Patient was seen and examined at bedside with the resident Continue current medical management I agree with the above history and physical and assessment/plan by the resident.
[2017-04-04] MEDS: Acetylcysteine 20% Inhal Soln (4ml) INH SCH ×3 (00:56→15:50)
[2017-04-04] MEDS: Albuterol-Ipratrop 3 mg / 0.5 (3 ml) UD INH SCH ×3 (00:56→15:50)
--- NOTE | 2017-04-04 02:19 | CP.PCM.PN ---
<Imani Ramon - Last Filed: 04/04/17 02:17> Subjective - Date & Time of Evaluation Date of Evaluation: 04/04/17 Time of Evaluation: 02:17 - Subjective Subjective: PGY1 Medicine note for Dr. Ying Patient seen and examined at bedside. Clinically unchanged. VSS on trach collar PEG feeds @ 40cc/hr and patient tolerating Patient lying in bed in no acute distress Patient has nonspontaneous, non directed movements ROS unobtainable due to clinical condition Objective - Vital Signs/Intake and Output Vital Signs (last 24 hours): Temp Pulse Resp BP Pulse Ox 97.7 F 69 20 123/76 99 04/03/17 23:18 04/03/17 23:18 04/03/17 23:18 04/03/17 23:18 04/03/17 23:18 Intake and Output: 04/03/17 04/04/17 18:59 06:59 Intake Total 520 520 Output Total 450 200 Balance 70 320 - Medications Medications: Current Medications Acetylcysteine (Acetylcysteine 20%) 4 ml INH RQ8 [facility] Last Admin: 04/04/17 00:56 Dose: 4 ml Albuterol/Ipratropium (Duoneb 3 Mg/0.5 Mg (3 Ml) Ud) 3 ml INH RQ8 [facility] Last Admin: 04/04/17 00:56 Dose: 3 ml Aspirin (Aspirin Chewable) 81 mg PEG DAILY [facility] Last Admin: 04/03/17 10:44 Dose: 81 mg Bethanechol Chloride (Urecholine) 50 mg PEG TID [facility] Last Admin: 04/03/17 17:12 Dose: 50 mg Bisacodyl (Dulcolax) 5 mg PO Q72H PRN PRN Reason: Constipation Last Admin: 03/20/17 10:57 Dose: 5 mg Carvedilol (Coreg) 3.125 mg PEG BID [facility] Last Admin: 04/03/17 17:12 Dose: 3.125 mg Clopidogrel Bisulfate (Plavix) 75 mg PEG DAILY [facility] Last Admin: 04/03/17 10:44 Dose: 75 mg Emollient Ointment (Vaseline Oint) 5 gm TOP BID PRN PRN Reason: Dry skin Last Admin: 03/29/17 09:27 Dose: 5 gm Enoxaparin Sodium (Lovenox) 40 mg SC DAILY [facility] Last Admin: 04/03/17 10:44 Dose: 40 mg Famotidine (Pepcid) 20 mg PEG BID [facility] Last Admin: 04/03/17 17:12 Dose: 20 mg Finasteride (Proscar) 5 mg PEG DAILY [facility] Last Admin: 04/03/17 10:45 Dose: 5 mg Levetiracetam (Keppra) 500 mg PEG BID [facility] Last Admin: 04/03/17 17:12 Dose: 500 mg Saccharomyces Boulardii (Florastor) 250 mg PO TID [facility] Last Admin: 04/03/17 17:12 Dose: 250 mg Tamsulosin HCl (Flomax) 0.4 mg PEG DAILY [facility] Last Admin: 04/03/17 10:44 Dose: 0.4 mg - Labs Labs: 03/30/17 07:25 03/30/17 07:25 PT 10.6 SECONDS (9.7-12.2) 11/24/15 14:10 INR 1.0 11/24/15 14:10 APTT 25 SECONDS (21-34) 11/24/15 14:10 - Constitutional Appears: Non-toxic, No Acute Distress - Head Exam Head Exam: NORMAL INSPECTION - Eye Exam Eye Exam: Normal appearance - ENT Exam ENT Exam: Mucous Membranes Dry - Neck Exam Additional comments: trach collar in place - Respiratory Exam Respiratory Exam: Clear to Ausculation Bilateral, NORMAL BREATHING PATTERN. absent: Accessory Muscle Use, Respiratory Distress - Cardiovascular Exam Cardiovascular Exam: REGULAR RHYTHM, +S1, +S2 - GI/Abdominal Exam GI & Abdominal Exam: Soft, Normal Bowel Sounds Additional comments: PEG IN PLACE - Extremities Exam Additional comments: offloading boots secure - Neurological Exam Neurological Exam: Awake - Skin Skin Exam: Dry, Intact, Normal Color, Warm Assessment and Plan - Assessment and Plan (Free Text) Assessment: 66 yo M with unknown pmhx who was found unresponsive in driveway s/p cardiac arrest and anoxic encephalopathy Plan: 1. UTI Resolved repeat UA 03/26: clear. lek esterase negative and urine bacteria rare 03/17/17 urinalysis was positive: Color Evelia, clarity turbid, protein 2+, blood 1+, Leukocyte Esterase 3+, WBC 22, RBC 7, Triple Phos Crystals high, bacteria many. The urine culture was positive for Proteus Mirabilis. Patient has a history of UTIs. His catheter was changed and the patient was started on Meropenem 1 gm IVPB Q8H for 5 days and was completed on 03/25. On 03/26/17 the repeat UA showed 1+ blood, 11 RBCs. [place] catheter in place CBI discontinued 01/08 Monitor 2. Anoxic brain injury s/p cardiac arrest in 05/2015 no acute changes Pt has non spontaneous movements. continue current management. Continue tube feeds- feeds decreased to 30cc/hr Florastor 250mg PO TID via PEG 3. Respiratory failure Trach in place, continue daily monitory for secretions. No change in management at this time. Continue with aggressive suctioning multiple times a day per respiratory therapist. Thick secretions Duoneb 3ml INH Q8 and Mucomist 4ml INH Q8 Continue to monitor 4. Urinary Retention Resolved, Good urinary output. Flomax 0.4mg PEG daily Proscar 5mg PEG daily continue Bethanecol 50mg PEG TID- started after persistent retention and found to be effective. monitor I's and O's check bladder scan for residual urine three times weekly 5. Sacral Ulcers Cont with offloading/cushioning/turning Small area stage II in upper gluteal cleft- pink base Stage II ulcer present on sacrum- pink base healing Continue frequent turning, protective ointment and skin checks. Continue wound care 6. Constipation Resolved, patient currently has diarrhea. Nursing to record bowel movements Dulcolax 5mg PO Q72 hours prn constipation/no bowel movement 7. CAD (coronary artery disease) s/p cardiac stents on 06/13/15 Cont ASA 81mg via PEG daily Cont Coreg 3.125mg PEG BID Cont Plavix 75mg PO daily 8. Seizures Cont Keppra 500mg PEG BID for seizure prophylaxis Monitor for activity 9. Lower extremity edema Improved Monitor 10. Prophylactic measure Pepcid 20 mg PEG BID Lovenox 40mg SC daily SCDs and offloading boots continue to turn and reposition q2h Feeds @ 40cc/hr Continue to monitor medication administrations and clinical presentation weekly labs Will discuss with Dr. Stepan Ramon PGY1 <Donnell Ying - Last Filed: 04/04/17 16:41> Objective - Vital Signs/Intake and Output Vital Signs (last 24 hours): Temp Pulse Resp BP Pulse Ox 98.6 F 72 20 108/74 100 04/04/17 08:00 04/04/17 08:00 04/04/17 08:00 04/04/17 08:00 04/04/17 08:00 Intake and Output: 04/04/17 04/04/17 06:59 18:59 Intake Total 520 1040 Output Total 200 500 Balance 320 540 - Medications Medications: Current Medications Acetylcysteine (Acetylcysteine 20%) 4 ml INH RQ8 [facility] Last Admin: 04/04/17 15:50 Dose: 4 ml Albuterol/Ipratropium (Duoneb 3 Mg/0.5 Mg (3 Ml) Ud) 3 ml INH RQ8 [facility] Last Admin: 04/04/17 15:50 Dose: 3 ml Aspirin (Aspirin Chewable) 81 mg PEG DAILY [facility] Last Admin: 04/04/17 10:55 Dose: 81 mg Bethanechol Chloride (Urecholine) 50 mg PEG TID [facility] Last Admin: 04/04/17 13:27 Dose: 50 mg Bisacodyl (Dulcolax) 5 mg PO Q72H PRN PRN Reason: Constipation Last Admin: 03/20/17 10:57 Dose: 5 mg Carvedilol (Coreg) 3.125 mg PEG BID [facility] Last Admin: 04/04/17 10:55 Dose: 3.125 mg Clopidogrel Bisulfate (Plavix) 75 mg PEG DAILY [facility] Last Admin: 04/04/17 10:55 Dose: 75 mg Emollient Ointment (Vaseline Oint) 5 gm TOP BID PRN PRN Reason: Dry skin Last Admin: 03/29/17 09:27 Dose: 5 gm Enoxaparin Sodium (Lovenox) 40 mg SC DAILY [facility] Last Admin: 04/04/17 10:55 Dose: 40 mg Famotidine (Pepcid) 20 mg PEG BID [facility] Last Admin: 04/04/17 10:55 Dose: 20 mg Finasteride (Proscar) 5 mg PEG DAILY [facility] Last Admin: 04/04/17 10:56 Dose: 5 mg Levetiracetam (Keppra) 500 mg PEG BID [facility] Last Admin: 04/04/17 10:56 Dose: 500 mg Saccharomyces Boulardii (Florastor) 250 mg PO TID [facility] Last Admin: 04/04/17 13:27 Dose: 250 mg Tamsulosin HCl (Flomax) 0.4 mg PEG DAILY [facility] Last Admin: 04/04/17 10:55 Dose: 0.4 mg - Labs Labs: 03/30/17 07:25 03/30/17 07:25 PT 10.6 SECONDS (9.7-12.2) 11/24/15 14:10 INR 1.0 11/24/15 14:10 APTT 25 SECONDS (21-34) 11/24/15 14:10 Attending/Attestation - Attestation I have personally seen and examined this patient.: Yes I have fully participated in the care of the patient.: Yes I have reviewed all pertinent clinical information, including history, physical exam and plan: Yes Notes (Text): 04/04/17 16:41 Patient was seen and examined at bedside No change in clinical condition and continue current management I agree with the above history and physical and assessment/plan by the resident.
[2017-04-04] MEDS: Enoxaparin 40 mg Syringe SC SCH (10:55)
[2017-04-04] MEDS: Saccharomyces Boulardi 250 mg Cap PO SCH ×3 (10:55→18:21)
[2017-04-04] MEDS: levETIRAcetam 100 mg/ml (5ml) Oral Syringe PEG SCH ×2 (10:56→18:24)
[2017-04-05] MEDS: Acetylcysteine 20% Inhal Soln (4ml) INH SCH ×3 (00:12→15:47)
[2017-04-05] MEDS: Albuterol-Ipratrop 3 mg / 0.5 (3 ml) UD INH SCH ×3 (00:12→15:47)
--- NOTE | 2017-04-05 01:00 | CP.PCM.PN ---
<Imani Ramon - Last Filed: 04/05/17 01:02> Subjective - Date & Time of Evaluation Date of Evaluation: 04/05/17 Time of Evaluation: 01:02 - Subjective Subjective: PGY1 Medicine note for Dr. Ying Patient seen and examined at bedside. Clinically unchanged. VSS on trach collar Tolerating PEG feeds @ 40cc/hr PEG site clean/dry/intact Patient lying in bed comfortably in no acute distress Patient has nonspontaneous, non directed movements ROS unobtainable due to clinical condition Objective - Vital Signs/Intake and Output Vital Signs (last 24 hours): Temp Pulse Resp BP Pulse Ox 98.3 F 75 20 106/67 99 04/04/17 23:42 04/04/17 23:42 04/04/17 23:42 04/04/17 23:42 04/04/17 23:42 Intake and Output: 04/04/17 04/05/17 18:59 06:59 Intake Total 1040 520 Output Total 500 400 Balance 540 120 - Medications Medications: Current Medications Acetylcysteine (Acetylcysteine 20%) 4 ml INH RQ8 [facility] Last Admin: 04/05/17 00:12 Dose: 4 ml Albuterol/Ipratropium (Duoneb 3 Mg/0.5 Mg (3 Ml) Ud) 3 ml INH RQ8 [facility] Last Admin: 04/05/17 00:12 Dose: 3 ml Aspirin (Aspirin Chewable) 81 mg PEG DAILY [facility] Last Admin: 04/04/17 10:55 Dose: 81 mg Bethanechol Chloride (Urecholine) 50 mg PEG TID [facility] Last Admin: 04/04/17 18:23 Dose: 50 mg Bisacodyl (Dulcolax) 5 mg PO Q72H PRN PRN Reason: Constipation Last Admin: 03/20/17 10:57 Dose: 5 mg Carvedilol (Coreg) 3.125 mg PEG BID [facility] Last Admin: 04/04/17 18:21 Dose: 3.125 mg Clopidogrel Bisulfate (Plavix) 75 mg PEG DAILY [facility] Last Admin: 04/04/17 10:55 Dose: 75 mg Emollient Ointment (Vaseline Oint) 5 gm TOP BID PRN PRN Reason: Dry skin Last Admin: 03/29/17 09:27 Dose: 5 gm Enoxaparin Sodium (Lovenox) 40 mg SC DAILY [facility] Last Admin: 04/04/17 10:55 Dose: 40 mg Famotidine (Pepcid) 20 mg PEG BID [facility] Last Admin: 04/04/17 18:22 Dose: 20 mg Finasteride (Proscar) 5 mg PEG DAILY [facility] Last Admin: 04/04/17 10:56 Dose: 5 mg Levetiracetam (Keppra) 500 mg PEG BID [facility] Last Admin: 04/04/17 18:24 Dose: 500 mg Saccharomyces Boulardii (Florastor) 250 mg PO TID [facility] Last Admin: 04/04/17 18:21 Dose: 250 mg Tamsulosin HCl (Flomax) 0.4 mg PEG DAILY [facility] Last Admin: 04/04/17 10:55 Dose: 0.4 mg - Labs Labs: 03/30/17 07:25 03/30/17 07:25 PT 10.6 SECONDS (9.7-12.2) 11/24/15 14:10 INR 1.0 11/24/15 14:10 APTT 25 SECONDS (21-34) 11/24/15 14:10 - Constitutional Appears: Non-toxic, No Acute Distress - Head Exam Head Exam: NORMAL INSPECTION - Eye Exam Eye Exam: Normal appearance - ENT Exam ENT Exam: Mucous Membranes Dry - Neck Exam Additional comments: trach collar in place - Respiratory Exam Respiratory Exam: Clear to Ausculation Bilateral, NORMAL BREATHING PATTERN. absent: Accessory Muscle Use, Rales, Rhonchi, Wheezes - Cardiovascular Exam Cardiovascular Exam: REGULAR RHYTHM, RRR, +S1, +S2 - GI/Abdominal Exam GI & Abdominal Exam: Soft, Normal Bowel Sounds Additional comments: PEG in place - Rectal Exam Rectal Exam: Deferred - Extremities Exam Additional comments: offloading boots secure - Neurological Exam Neurological Exam: Awake - Skin Skin Exam: Dry, Intact, Normal Color, Warm Assessment and Plan - Assessment and Plan (Free Text) Assessment: 66 yo M with unknown pmhx who was found unresponsive in driveway s/p cardiac arrest and anoxic encephalopathy Plan: 1. Anoxic brain injury s/p cardiac arrest in 05/2015 no acute changes Pt has non spontaneous movements. continue current management. Continue tube feeds- feeds decreased to 30cc/hr Florastor 250mg PO TID via PEG 2. Respiratory failure Trach in place, continue daily monitory for secretions. No change in management at this time. Continue with aggressive suctioning multiple times a day per respiratory therapist. Thick secretions Duoneb 3ml INH Q8 and Mucomist 4ml INH Q8 Continue to monitor 3. UTI Resolved repeat UA 03/26: clear. lek esterase negative and urine bacteria rare 03/17/17 urinalysis was positive: Color Evelia, clarity turbid, protein 2+, blood 1+, Leukocyte Esterase 3+, WBC 22, RBC 7, Triple Phos Crystals high, bacteria many. The urine culture was positive for Proteus Mirabilis. Patient has a history of UTIs. His catheter was changed and the patient was started on Meropenem 1 gm IVPB Q8H for 5 days and was completed on 03/25. On 03/26/17 the repeat UA showed 1+ blood, 11 RBCs. [place] catheter in place CBI discontinued 01/08 Monitor 4. Urinary Retention Resolved, Good urinary output. Flomax 0.4mg PEG daily Proscar 5mg PEG daily continue Bethanecol 50mg PEG TID- started after persistent retention and found to be effective. monitor I's and O's check bladder scan for residual urine three times weekly 5. Sacral Ulcers Cont with offloading/cushioning/turning Small area stage II in upper gluteal cleft- pink base Stage II ulcer present on sacrum- pink base healing Continue frequent turning, protective ointment and skin checks. Continue wound care 6. Constipation Resolved, patient currently has diarrhea. Nursing to record bowel movements Dulcolax 5mg PO Q72 hours prn constipation/no bowel movement 7. CAD (coronary artery disease) s/p cardiac stents on 06/13/15 Cont ASA 81mg via PEG daily Cont Coreg 3.125mg PEG BID Cont Plavix 75mg PO daily 8. Seizures Cont Keppra 500mg PEG BID for seizure prophylaxis Monitor for activity 9. Lower extremity edema Improved Monitor 10. Prophylactic measure Pepcid 20 mg PEG BID Lovenox 40mg SC daily SCDs and offloading boots continue to turn and reposition q2h Feeds @ 40cc/hr Continue to monitor medication administrations and clinical presentation weekly labs Will discuss with Dr. Stepan Ramon PGY1 <Donnell Ying - Last Filed: 04/05/17 12:19> Objective - Vital Signs/Intake and Output Vital Signs (last 24 hours): Temp Pulse Resp BP Pulse Ox 98.6 F 80 20 114/76 100 04/05/17 08:00 04/05/17 08:00 04/05/17 08:00 04/05/17 08:00 04/05/17 08:00 Intake and Output: 04/05/17 04/05/17 06:59 18:59 Intake Total 1040 Output Total 700 Balance 340 - Medications Medications: Current Medications Acetylcysteine (Acetylcysteine 20%) 4 ml INH RQ8 [facility] Last Admin: 04/05/17 08:46 Dose: 4 ml Albuterol/Ipratropium (Duoneb 3 Mg/0.5 Mg (3 Ml) Ud) 3 ml INH RQ8 [facility] Last Admin: 04/05/17 08:46 Dose: 3 ml Aspirin (Aspirin Chewable) 81 mg PEG DAILY [facility] Last Admin: 04/05/17 09:41 Dose: 81 mg Bethanechol Chloride (Urecholine) 50 mg PEG TID [facility] Last Admin: 04/05/17 09:41 Dose: 50 mg Bisacodyl (Dulcolax) 5 mg PO Q72H PRN PRN Reason: Constipation Last Admin: 03/20/17 10:57 Dose: 5 mg Carvedilol (Coreg) 3.125 mg PEG BID [facility] Last Admin: 04/05/17 09:41 Dose: 3.125 mg Clopidogrel Bisulfate (Plavix) 75 mg PEG DAILY [facility] Last Admin: 04/05/17 09:41 Dose: 75 mg Emollient Ointment (Vaseline Oint) 5 gm TOP BID PRN PRN Reason: Dry skin Last Admin: 03/29/17 09:27 Dose: 5 gm Enoxaparin Sodium (Lovenox) 40 mg SC DAILY [facility] Last Admin: 04/05/17 09:41 Dose: 40 mg Famotidine (Pepcid) 20 mg PEG BID [facility] Last Admin: 04/05/17 09:41 Dose: 20 mg Finasteride (Proscar) 5 mg PEG DAILY [facility] Last Admin: 04/05/17 09:41 Dose: 5 mg Levetiracetam (Keppra) 500 mg PEG BID [facility] Last Admin: 04/05/17 09:41 Dose: 500 mg Saccharomyces Boulardii (Florastor) 250 mg PO TID [facility] Last Admin: 04/05/17 09:41 Dose: 250 mg Tamsulosin HCl (Flomax) 0.4 mg PEG DAILY [facility] Last Admin: 04/05/17 09:41 Dose: 0.4 mg - Labs Labs: 03/30/17 07:25 03/30/17 07:25 PT 10.6 SECONDS (9.7-12.2) 11/24/15 14:10 INR 1.0 11/24/15 14:10 APTT 25 SECONDS (21-34) 11/24/15 14:10 Attending/Attestation - Attestation I have personally seen and examined this patient.: Yes I have fully participated in the care of the patient.: Yes I have reviewed all pertinent clinical information, including history, physical exam and plan: Yes Notes (Text): 04/05/17 12:18 Patient was seen and examined at bedside today. There is no change in clinical condition. Continue current management. Follow-up routine labs tomorrow. I agree with the above history and physical and assessment/plan by the resident.
[2017-04-05] MEDS: levETIRAcetam 100 mg/ml (5ml) Oral Syringe PEG SCH ×2 (09:41→17:32)
[2017-04-05] MEDS: Saccharomyces Boulardi 250 mg Cap PO SCH ×5 (09:41→17:32)
[2017-04-05] MEDS: Enoxaparin 40 mg Syringe SC SCH (09:41)
[2017-04-06] MEDS: Albuterol-Ipratrop 3 mg / 0.5 (3 ml) UD INH SCH ×3 (00:09→16:12)
[2017-04-06] MEDS: Acetylcysteine 20% Inhal Soln (4ml) INH SCH ×3 (00:09→16:12)
--- NOTE | 2017-04-06 07:08 | CP.PCM.PN ---
<Imani Ramon - Last Filed: 04/06/17 10:53> Subjective - Date & Time of Evaluation Date of Evaluation: 04/06/17 Time of Evaluation: 07:08 - Subjective Subjective: PGY1 Medicine note for Dr. Ying Patient seen and examined at bedside. Clinically unchanged. Patient spiked temp 101.7F this AM Patient has white count of 15.3 up from 9.2 last 03/30. CXR, blood cultures, urine culture ordered UO 1300cc with condom cath - cherie colored non cloudy Tolerating PEG feeds @ 40cc/hr PEG site clean/dry/intact Patient lying in bed comfortably in no acute distress Patient has nonspontaneous, non directed movements ROS unobtainable due to clinical condition Objective - Vital Signs/Intake and Output Vital Signs (last 24 hours): Temp Pulse Resp BP Pulse Ox 98.3 F 91 H 20 114/74 98 04/05/17 23:42 04/05/17 23:42 04/05/17 23:42 04/05/17 23:42 04/05/17 23:42 Intake and Output: 04/06/17 04/06/17 06:59 18:59 Intake Total 1090 Output Total 1000 Balance 90 - Medications Medications: Current Medications Acetylcysteine (Acetylcysteine 20%) 4 ml INH RQ8 [facility] Last Admin: 04/06/17 00:09 Dose: 4 ml Albuterol/Ipratropium (Duoneb 3 Mg/0.5 Mg (3 Ml) Ud) 3 ml INH RQ8 [facility] Last Admin: 04/06/17 00:09 Dose: 3 ml Aspirin (Aspirin Chewable) 81 mg PEG DAILY [facility] Last Admin: 04/05/17 09:41 Dose: 81 mg Bethanechol Chloride (Urecholine) 50 mg PEG TID [facility] Last Admin: 04/05/17 17:33 Dose: 50 mg Bisacodyl (Dulcolax) 5 mg PO Q72H PRN PRN Reason: Constipation Last Admin: 03/20/17 10:57 Dose: 5 mg Carvedilol (Coreg) 3.125 mg PEG BID [facility] Last Admin: 04/05/17 17:32 Dose: 3.125 mg Clopidogrel Bisulfate (Plavix) 75 mg PEG DAILY [facility] Last Admin: 04/05/17 09:41 Dose: 75 mg Emollient Ointment (Vaseline Oint) 5 gm TOP BID PRN PRN Reason: Dry skin Last Admin: 03/29/17 09:27 Dose: 5 gm Enoxaparin Sodium (Lovenox) 40 mg SC DAILY [facility] Last Admin: 04/05/17 09:41 Dose: 40 mg Famotidine (Pepcid) 20 mg PEG BID [facility] Last Admin: 04/05/17 17:33 Dose: 20 mg Finasteride (Proscar) 5 mg PEG DAILY [facility] Last Admin: 04/05/17 09:41 Dose: 5 mg Levetiracetam (Keppra) 500 mg PEG BID [facility] Last Admin: 04/05/17 17:32 Dose: 500 mg Saccharomyces Boulardii (Florastor) 250 mg PO TID [facility] Last Admin: 04/05/17 17:32 Dose: 250 mg Tamsulosin HCl (Flomax) 0.4 mg PEG DAILY [facility] Last Admin: 04/05/17 09:41 Dose: 0.4 mg - Labs Labs: 03/30/17 07:25 03/30/17 07:25 PT 10.6 SECONDS (9.7-12.2) 11/24/15 14:10 INR 1.0 11/24/15 14:10 APTT 25 SECONDS (21-34) 11/24/15 14:10 - Constitutional Appears: Non-toxic, No Acute Distress - Head Exam Head Exam: NORMAL INSPECTION - Eye Exam Eye Exam: Normal appearance. absent: Conjunctival injection, Scleral icterus - ENT Exam ENT Exam: Mucous Membranes Dry - Neck Exam Additional comments: trach collar in place - Respiratory Exam Respiratory Exam: Clear to Ausculation Bilateral, NORMAL BREATHING PATTERN. absent: Accessory Muscle Use, Rales, Rhonchi, Wheezes, Respiratory Distress - Cardiovascular Exam Cardiovascular Exam: REGULAR RHYTHM, RRR, +S1, +S2 - GI/Abdominal Exam GI & Abdominal Exam: Soft, Normal Bowel Sounds Additional comments: PEG site c/d/i - Rectal Exam Rectal Exam: Deferred - Extremities Exam Extremities Exam: absent: Pedal Edema Additional comments: offloading boots secure no edema in all extremities b/l - Neurological Exam Neurological Exam: Awake. absent: Alert - Skin Skin Exam: Dry, Intact, Normal Color, Warm Assessment and Plan - Assessment and Plan (Free Text) Assessment: 66 yo M with unknown pmhx who was found unresponsive in driveway s/p cardiac arrest and anoxic encephalopathy Plan: Anoxic brain injury s/p cardiac arrest in 05/2015 no acute changes Pt has non spontaneous movements. continue current management. Continue tube feeds- feeds decreased to 30cc/hr Florastor 250mg PO TID via PEG Respiratory failure Trach in place, continue daily monitory for secretions. No change in management at this time. Continue with aggressive suctioning multiple times a day per respiratory therapist. Thick secretions Duoneb 3ml INH Q8 and Mucomist 4ml INH Q8 Continue to monitor UTI Patient had temp 101.7 this morning 04/06 WBC 15.3 this AM 04/06 f/u repeat urine culture 04/06 f/u blood culture repeat UA 03/26: clear. lek esterase negative and urine bacteria rare 03/17/17 urinalysis was positive: Color Cherie, clarity turbid, protein 2+, blood 1+, Leukocyte Esterase 3+, WBC 22, RBC 7, Triple Phos Crystals high, bacteria many. The urine culture was positive for Proteus Mirabilis. Patient has a history of UTIs. His catheter was changed and the patient was started on Meropenem 1 gm IVPB Q8H for 5 days and was completed on 03/25. On 03/26/17 the repeat UA showed 1+ blood, 11 RBCs. [place] catheter in place CBI discontinued 01/08 Monitor Urinary Retention Resolved, Good urinary output. Flomax 0.4mg PEG daily Proscar 5mg PEG daily continue Bethanecol 50mg PEG TID- started after persistent retention and found to be effective. monitor I's and O's check bladder scan for residual urine three times weekly Sacral Ulcers Cont with offloading/cushioning/turning Small area stage II in upper gluteal cleft- pink base Stage II ulcer present on sacrum- pink base healing Continue frequent turning, protective ointment and skin checks. Continue wound care Constipation Resolved, patient currently has diarrhea. Nursing to record bowel movements Dulcolax 5mg PO Q72 hours prn constipation/no bowel movement CAD (coronary artery disease) s/p cardiac stents on 06/13/15 Cont ASA 81mg via PEG daily Cont Coreg 3.125mg PEG BID Cont Plavix 75mg PO daily Seizures Cont Keppra 500mg PEG BID for seizure prophylaxis Monitor for activity Lower extremity edema Improved Monitor Prophylactic measure Pepcid 20 mg PEG BID Lovenox 40mg SC daily SCDs and offloading boots continue to turn and reposition q2h Feeds @ 40cc/hr Continue to monitor medication administrations and clinical presentation weekly labs Will discuss with Dr. Viji Ramon PGY1 <Donavan Hallman - Last Filed: 04/23/17 12:18> Objective - Vital Signs/Intake and Output Vital Signs (last 24 hours): Temp Pulse Resp BP Pulse Ox 98.8 F 89 18 101/64 99 04/23/17 07:00 04/23/17 07:00 04/23/17 07:00 04/23/17 07:00 04/23/17 07:00 Intake and Output: 04/23/17 04/23/17 06:59 18:59 Intake Total 1040 Output Total 750 Balance 290 - Medications Medications: Current Medications Acetaminophen (Tylenol 650mg/20.3ml Solution Ud) 650 mg PEG Q6 PRN PRN Reason: Fever >100.4 F Last Admin: 04/07/17 02:45 Dose: 650 mg Acetylcysteine (Acetylcysteine 20%) 4 ml INH RQ6 [facility] Last Admin: 04/23/17 08:08 Dose: 4 ml Albuterol/Ipratropium (Duoneb 3 Mg/0.5 Mg (3 Ml) Ud) 3 ml INH RQ6 [facility] Last Admin: 04/23/17 08:08 Dose: 3 ml Aspirin (Aspirin Chewable) 81 mg PO DAILY [facility] Last Admin: 04/23/17 09:08 Dose: 81 mg Bethanechol Chloride (Urecholine) 50 mg PO TID [facility] Last Admin: 04/23/17 09:08 Dose: 50 mg Carvedilol (Coreg) 3.125 mg PEG BID [facility] Last Admin: 04/23/17 09:11 Dose: Not Given Clopidogrel Bisulfate (Plavix) 75 mg PO DAILY [facility] Last Admin: 04/23/17 09:08 Dose: 75 mg Famotidine (Pepcid) 20 mg PEG BID [facility] Last Admin: 04/23/17 09:09 Dose: 20 mg Finasteride (Proscar) 5 mg PO DAILY [facility] Last Admin: 04/23/17 09:08 Dose: 5 mg Levetiracetam (Keppra) 500 mg PO BID [facility] Last Admin: 04/23/17 09:09 Dose: 500 mg Methylprednisolone (Solu-Medrol) 20 mg IVP DAILY [facility] Stop: 04/24/17 10:01 Last Admin: 04/23/17 09:10 Dose: 20 mg Saccharomyces Boulardii (Florastor) 250 mg PO TID [facility] Last Admin: 04/23/17 09:07 Dose: 250 mg Tamsulosin HCl (Flomax) 0.4 mg PO DAILY [facility] Last Admin: 04/23/17 09:09 Dose: 0.4 mg - Labs Labs: 04/20/17 07:11 04/20/17 07:11 PT 10.6 SECONDS (9.7-12.2) 11/24/15 14:10 INR 1.0 11/24/15 14:10 APTT 25 SECONDS (21-34) 11/24/15 14:10 Attending/Attestation - Attestation I have personally seen and examined this patient.: Yes I have fully participated in the care of the patient.: Yes I have reviewed all pertinent clinical information, including history, physical exam and plan: Yes Notes (Text): Patient seen and examined with the resident. Agree with the resident's evaluation, assessment and plan. UTI, Anoxic brain Injury, Cardiac arrest, respiratory failure now with trach collar mucus plug - pulm toilet
[2017-04-06 08:34] LABS: BASO % 0.2 % (0.0-2.0); EOS # 0.3 K/uL (0.0-0.7); EOS % 1.7 % (0.0-4.0); HEMOGLOBIN 12.4 g/dL (12.0-18.0); LYMPH # 1.8 K/uL (1.0-4.3); LYMPH % 12.1 % (20.0-40.0); MEAN CELL VOLUME 88.5 fL (80.0-94.0); MEAN CORPUSCULAR HEMOGLOBIN 28.2 pg (27.0-31.0); MEAN CORPUSCULAR HGB CONC 31.8 g/dL (33.0-37.0); MEAN PLATELET VOLUME 9.3 fL (7.2-11.7); MONO # 1.3 K/uL (0.0-0.8); MONO % 8.6 % (0.0-10.0); NEUT # 11.8 K/uL (1.8-7.0); NEUT % 77.4 % (50.0-75.0); NRBC % 0.1 % (0.0-2.0); RBC 4.39 Mil/uL (4.40-5.90); RED CELL DISTRIBUTION WIDTH 15.4 % (11.5-14.5)
[2017-04-06 08:35] LABS: WHITE BLOOD COUNT 15.3 K/uL (4.8-10.8)
[2017-04-06 08:45] LABS: ALBUMIN 3.5 g/dL (3.5-5.0)
[2017-04-06 08:47] LABS: GFR NON-AFRICAN AMERICAN > 60
[2017-04-06 08:48] LABS: ALB/GLOB RATIO 0.9 (1.0-2.1); AST/SGOT 30 U/L (17-59); BLOOD UREA NITROGEN 17 mg/dL (9-20)
[2017-04-06 08:49] LABS: ALT/SGPT 77 U/L (21-72); CALCIUM 8.2 mg/dl (8.6-10.4)
--- NOTE | 2017-04-06 09:32 | RAD ---
HISTORY: elevated temp COMPARISON: 01/06/2017 FINDINGS: LUNGS: No active pulmonary disease. PLEURA: No significant pleural effusion identified, no pneumothorax apparent. CARDIOVASCULAR: Normal heart size. Tracheostomy noted. OSSEOUS STRUCTURES: No significant abnormalities. VISUALIZED UPPER ABDOMEN: Normal. OTHER FINDINGS: None. IMPRESSION: No active disease.
[2017-04-06] MEDS: Saccharomyces Boulardi 250 mg Cap PO SCH ×4 (11:35→17:03)
[2017-04-06] MEDS: Enoxaparin 40 mg Syringe SC SCH (11:37)
[2017-04-06] MEDS: levETIRAcetam 100 mg/ml (5ml) Oral Syringe PEG SCH ×2 (11:37→17:06)
[2017-04-06] MEDS: Acetaminophen 650mg/20.3ml solution UD PEG PRN (17:51)
[2017-04-07] MEDS: Albuterol-Ipratrop 3 mg / 0.5 (3 ml) UD INH SCH ×3 (01:28→15:48)
[2017-04-07] MEDS: Acetylcysteine 20% Inhal Soln (4ml) INH SCH ×3 (01:28→15:48)
[2017-04-07] MEDS: Acetaminophen 650mg/20.3ml solution UD PEG PRN (02:45)
[2017-04-07 07:40] LABS: BASO % 0.2 % (0.0-2.0); EOS # 0.6 K/uL (0.0-0.7); EOS % 3.4 % (0.0-4.0); HEMOGLOBIN 11.4 g/dL (12.0-18.0); LYMPH # 1.8 K/uL (1.0-4.3); LYMPH % 10.8 % (20.0-40.0); MEAN CELL VOLUME 88.9 fL (80.0-94.0); MEAN CORPUSCULAR HEMOGLOBIN 28.4 pg (27.0-31.0); MEAN PLATELET VOLUME 9.5 fL (7.2-11.7); MONO # 1.6 K/uL (0.0-0.8); MONO % 9.4 % (0.0-10.0); NEUT % 76.2 % (50.0-75.0); RBC 4.02 Mil/uL (4.40-5.90); RED CELL DISTRIBUTION WIDTH 14.8 % (11.5-14.5); WHITE BLOOD COUNT 17.1 K/uL (4.8-10.8)
[2017-04-07 08:03] LABS: ALBUMIN 3.3 g/dL (3.5-5.0)
[2017-04-07 08:06] LABS: ALB/GLOB RATIO 0.8 (1.0-2.1); AST/SGOT 24 U/L (17-59); BLOOD UREA NITROGEN 16 mg/dL (9-20); GFR NON-AFRICAN AMERICAN > 60
[2017-04-07 08:07] LABS: ALT/SGPT 59 U/L (21-72)
[2017-04-07] MEDS: levETIRAcetam 100 mg/ml (5ml) Oral Syringe PEG SCH ×2 (11:00→17:15)
[2017-04-07] MEDS: Saccharomyces Boulardi 250 mg Cap PO SCH ×3 (11:00→17:15)
[2017-04-07] MEDS: Sodium Chloride 0.9% 1,000 ML IV SCH ×2 (11:37→22:34)
--- NOTE | 2017-04-07 13:56 | CP.PCM.PN ---
<Imani Ramon - Last Filed: 04/07/17 14:44> Subjective - Date & Time of Evaluation Date of Evaluation: 04/07/17 Time of Evaluation: 07:45 - Subjective Subjective: PGY1 Medicine note for Dr. Hallman Patient seen and examined at bedside. Patient spiked temp overnight 100.8F and 102.8F Patient has white count of 17.1 up from 15.3 on 04/06 CXR no active disease blood cultures prelim no growth x 2 urine culture prelim Gram negative patsy ID Dr. Armstrong aware and started patient on Cefepime 1gm Q12 UO decreased Bladder scan was done overnight that showed ~80cc Tolerating PEG feeds @ 40cc/hr PEG site clean/dry/intact Patient has nonspontaneous, non directed movements ROS unobtainable due to clinical condition Objective - Vital Signs/Intake and Output Vital Signs (last 24 hours): Temp Pulse Resp BP Pulse Ox 97.7 F 86 20 97/60 L 97 04/07/17 07:33 04/07/17 07:33 04/07/17 07:33 04/07/17 07:33 04/07/17 07:33 Intake and Output: 04/07/17 04/07/17 06:59 18:59 Intake Total 1290 Output Total 300 Balance 990 - Medications Medications: Current Medications Acetaminophen (Tylenol 650mg/20.3ml Solution Ud) 650 mg PEG Q6 PRN PRN Reason: Fever >100.4 F Last Admin: 04/07/17 02:45 Dose: 650 mg Acetylcysteine (Acetylcysteine 20%) 4 ml INH RQ8 [facility] Last Admin: 04/07/17 09:08 Dose: 4 ml Albuterol/Ipratropium (Duoneb 3 Mg/0.5 Mg (3 Ml) Ud) 3 ml INH RQ8 [facility] Last Admin: 04/07/17 09:09 Dose: 3 ml Aspirin (Aspirin Chewable) 81 mg PEG DAILY [facility] Last Admin: 04/07/17 11:00 Dose: 81 mg Bethanechol Chloride (Urecholine) 50 mg PEG TID [facility] Last Admin: 04/07/17 11:00 Dose: 50 mg Bisacodyl (Dulcolax) 5 mg PO Q72H PRN PRN Reason: Constipation Last Admin: 03/20/17 10:57 Dose: 5 mg Carvedilol (Coreg) 3.125 mg PEG BID [facility] Last Admin: 04/07/17 11:00 Dose: 3.125 mg Clopidogrel Bisulfate (Plavix) 75 mg PEG DAILY [facility] Last Admin: 04/07/17 11:00 Dose: 75 mg Emollient Ointment (Vaseline Oint) 5 gm TOP BID PRN PRN Reason: Dry skin Last Admin: 03/29/17 09:27 Dose: 5 gm Famotidine (Pepcid) 20 mg PEG BID [facility] Last Admin: 04/07/17 11:00 Dose: 20 mg Finasteride (Proscar) 5 mg PEG DAILY [facility] Last Admin: 04/07/17 11:00 Dose: 5 mg Cefepime HCl 1 gm/ Dextrose 50 mls @ 100 mls/hr IVPB Q12H [facility] Last Admin: 04/07/17 09:36 Dose: 100 mls/hr Sodium Chloride (Sodium Chloride 0.9%) 1,000 mls @ 100 mls/hr IV .Q10H [facility] Last Admin: 04/07/17 11:37 Dose: 100 mls/hr Levetiracetam (Keppra) 500 mg PEG BID [facility] Last Admin: 04/07/17 11:00 Dose: 500 mg Saccharomyces Boulardii (Florastor) 250 mg PO TID [facility] Last Admin: 04/07/17 11:00 Dose: 250 mg Tamsulosin HCl (Flomax) 0.4 mg PEG DAILY [facility] Last Admin: 04/07/17 11:00 Dose: 0.4 mg - Labs Labs: 04/07/17 07:17 04/07/17 07:17 PT 10.6 SECONDS (9.7-12.2) 11/24/15 14:10 INR 1.0 11/24/15 14:10 APTT 25 SECONDS (21-34) 11/24/15 14:10 - Constitutional Appears: Non-toxic, No Acute Distress - Head Exam Head Exam: NORMAL INSPECTION - Eye Exam Eye Exam: Normal appearance. absent: Conjunctival injection, Scleral icterus - ENT Exam ENT Exam: Mucous Membranes Dry - Neck Exam Additional comments: trach collar in place - Respiratory Exam Respiratory Exam: Rhonchi, NORMAL BREATHING PATTERN. absent: Accessory Muscle Use, Rales, Wheezes, Respiratory Distress - Cardiovascular Exam Cardiovascular Exam: REGULAR RHYTHM, RRR, +S1, +S2. absent: Murmur - GI/Abdominal Exam GI & Abdominal Exam: Soft, Normal Bowel Sounds Additional comments: PEG site c/d/i - Rectal Exam Rectal Exam: Deferred - Extremities Exam Additional comments: offloading boots secure - Neurological Exam Neurological Exam: Awake - Skin Skin Exam: Dry, Intact, Normal Color, Warm Assessment and Plan - Assessment and Plan (Free Text) Assessment: 66 yo M with unknown pmhx who was found unresponsive in driveway s/p cardiac arrest and anoxic encephalopathy Plan: UTI Patient spiked temp overnight 04/06-04/07 100.8F and 102.8F Patient has white count of 17.1 up from 15.3 on 04/06 CXR no active disease blood cultures prelim no growth x 2 urine culture prelim Gram negative patsy Patient given 1gm 1 dose vancomycin 04/[address] Armstrong aware and started patient on Cefepime 1gm Q12 [place] catheter in place NS @ 100cc/hr Tylenol 650mg po q6 PEG for fever temp > 100.4F Urinary Retention Flomax 0.4mg PEG daily Proscar 5mg PEG daily continue Bethanecol 50mg PEG TID- started after persistent retention and found to be effective. monitor I's and O's check bladder scan for residual urine three times weekly NS @ 100cc/hr Anoxic brain injury s/p cardiac arrest in 05/2015 no acute changes Pt has non spontaneous movements. continue current management. Continue tube feeds- feeds decreased to 30cc/hr Florastor 250mg PO TID via PEG Respiratory failure Trach in place, continue daily monitory for secretions. No change in management at this time. Continue with aggressive suctioning multiple times a day per respiratory therapist. Thick secretions Duoneb 3ml INH Q8 and Mucomist 4ml INH Q8 Continue to monitor Sacral Ulcers Cont with offloading/cushioning/turning Small area stage II in upper gluteal cleft- pink base Stage II ulcer present on sacrum- pink base healing Continue frequent turning, protective ointment and skin checks. Continue wound care Constipation Resolved, patient currently has diarrhea. Nursing to record bowel movements Dulcolax 5mg PO Q72 hours prn constipation/no bowel movement CAD (coronary artery disease) s/p cardiac stents on 06/13/15 Cont ASA 81mg via PEG daily Cont Coreg 3.125mg PEG BID Cont Plavix 75mg PO daily Seizures Cont Keppra 500mg PEG BID for seizure prophylaxis Monitor for activity Lower extremity edema Improved Monitor Prophylactic measure Pepcid 20 mg PEG BID Lovenox 40mg SC daily SCDs and offloading boots continue to turn and reposition q2h Feeds @ 40cc/hr NS @ 100cc/hr Continue to monitor medication administrations and clinical presentation weekly labs Case discussed with Dr. Viji Ramon PGY1 <Donavan Hallman - Last Filed: 04/23/17 12:19> Objective - Vital Signs/Intake and Output Vital Signs (last 24 hours): Temp Pulse Resp BP Pulse Ox 98.8 F 89 18 101/64 99 04/23/17 07:00 04/23/17 07:00 04/23/17 07:00 04/23/17 07:00 04/23/17 07:00 Intake and Output: 04/23/17 04/23/17 06:59 18:59 Intake Total 1040 Output Total 750 Balance 290 - Medications Medications: Current Medications Acetaminophen (Tylenol 650mg/20.3ml Solution Ud) 650 mg PEG Q6 PRN PRN Reason: Fever >100.4 F Last Admin: 04/07/17 02:45 Dose: 650 mg Acetylcysteine (Acetylcysteine 20%) 4 ml INH RQ6 [facility] Last Admin: 04/23/17 08:08 Dose: 4 ml Albuterol/Ipratropium (Duoneb 3 Mg/0.5 Mg (3 Ml) Ud) 3 ml INH RQ6 [facility] Last Admin: 04/23/17 08:08 Dose: 3 ml Aspirin (Aspirin Chewable) 81 mg PO DAILY [facility] Last Admin: 04/23/17 09:08 Dose: 81 mg Bethanechol Chloride (Urecholine) 50 mg PO TID [facility] Last Admin: 04/23/17 09:08 Dose: 50 mg Carvedilol (Coreg) 3.125 mg PEG BID [facility] Last Admin: 04/23/17 09:11 Dose: Not Given Clopidogrel Bisulfate (Plavix) 75 mg PO DAILY [facility] Last Admin: 04/23/17 09:08 Dose: 75 mg Famotidine (Pepcid) 20 mg PEG BID [facility] Last Admin: 04/23/17 09:09 Dose: 20 mg Finasteride (Proscar) 5 mg PO DAILY [facility] Last Admin: 04/23/17 09:08 Dose: 5 mg Levetiracetam (Keppra) 500 mg PO BID [facility] Last Admin: 04/23/17 09:09 Dose: 500 mg Methylprednisolone (Solu-Medrol) 20 mg IVP DAILY [facility] Stop: 04/24/17 10:01 Last Admin: 04/23/17 09:10 Dose: 20 mg Saccharomyces Boulardii (Florastor) 250 mg PO TID [facility] Last Admin: 04/23/17 09:07 Dose: 250 mg Tamsulosin HCl (Flomax) 0.4 mg PO DAILY [facility] Last Admin: 04/23/17 09:09 Dose: 0.4 mg - Labs Labs: 04/20/17 07:11 04/20/17 07:11 PT 10.6 SECONDS (9.7-12.2) 11/24/15 14:10 INR 1.0 11/24/15 14:10 APTT 25 SECONDS (21-34) 11/24/15 14:10 Attending/Attestation - Attestation I have personally seen and examined this patient.: Yes I have fully participated in the care of the patient.: Yes I have reviewed all pertinent clinical information, including history, physical exam and plan: Yes Notes (Text): Patient seen and examined with the resident. Agree with the resident's evaluation, assessment and plan. recurrent UTI's, Anoxic brain Injury, Cardiac arrest, respiratory failure now with trach collar
[2017-04-08] MEDS: Albuterol-Ipratrop 3 mg / 0.5 (3 ml) UD INH SCH ×3 (03:32→19:42)
[2017-04-08] MEDS: Acetylcysteine 20% Inhal Soln (4ml) INH SCH ×3 (03:32→19:43)
--- NOTE | 2017-04-08 07:10 | CP.PCM.PN ---
<Imani Ramon - Last Filed: 04/08/17 17:09> Subjective - Date & Time of Evaluation Date of Evaluation: 04/08/17 Time of Evaluation: 10:00 - Subjective Subjective: PGY1 Medicine note for Dr. Mercedes Patient seen and examined at bedside. Patient did not spike temp overnight Patient has white count of 11.6 this AM CXR no active disease blood cultures prelim no growth x 2 urine culture +Proteus Patient has good UO Tolerating PEG feeds @ 40cc/hr PEG site clean/dry/intact Patient has nonspontaneous, non directed movements ROS unobtainable due to clinical condition Objective - Vital Signs/Intake and Output Vital Signs (last 24 hours): Temp Pulse Resp BP Pulse Ox 98.7 F 76 20 111/70 98 04/07/17 23:19 04/07/17 23:19 04/07/17 23:19 04/07/17 23:19 04/07/17 23:19 Intake and Output: 04/08/17 04/08/17 06:59 18:59 Intake Total 1890 Output Total 1000 Balance 890 - Medications Medications: Current Medications Acetaminophen (Tylenol 650mg/20.3ml Solution Ud) 650 mg PEG Q6 PRN PRN Reason: Fever >100.4 F Last Admin: 04/07/17 02:45 Dose: 650 mg Acetylcysteine (Acetylcysteine 20%) 4 ml INH RQ8 [facility] Last Admin: 04/08/17 03:32 Dose: 4 ml Albuterol/Ipratropium (Duoneb 3 Mg/0.5 Mg (3 Ml) Ud) 3 ml INH RQ8 [facility] Last Admin: 04/08/17 03:32 Dose: 3 ml Aspirin (Aspirin Chewable) 81 mg PEG DAILY [facility] Last Admin: 04/07/17 11:00 Dose: 81 mg Bethanechol Chloride (Urecholine) 50 mg PEG TID [facility] Last Admin: 04/07/17 17:38 Dose: 50 mg Bisacodyl (Dulcolax) 5 mg PO Q72H PRN PRN Reason: Constipation Last Admin: 03/20/17 10:57 Dose: 5 mg Carvedilol (Coreg) 3.125 mg PEG BID [facility] Last Admin: 04/07/17 17:15 Dose: 3.125 mg Clopidogrel Bisulfate (Plavix) 75 mg PEG DAILY [facility] Last Admin: 04/07/17 11:00 Dose: 75 mg Emollient Ointment (Vaseline Oint) 5 gm TOP BID PRN PRN Reason: Dry skin Last Admin: 03/29/17 09:27 Dose: 5 gm Famotidine (Pepcid) 20 mg PEG BID [facility] Last Admin: 04/07/17 17:15 Dose: 20 mg Finasteride (Proscar) 5 mg PEG DAILY [facility] Last Admin: 04/07/17 11:00 Dose: 5 mg Cefepime HCl 1 gm/ Dextrose 50 mls @ 100 mls/hr IVPB Q12H [facility] Last Admin: 04/08/17 06:23 Dose: 100 mls/hr Levetiracetam (Keppra) 500 mg PEG BID [facility] Last Admin: 04/07/17 17:15 Dose: 500 mg Saccharomyces Boulardii (Florastor) 250 mg PO TID [facility] Last Admin: 04/07/17 17:15 Dose: 250 mg Tamsulosin HCl (Flomax) 0.4 mg PEG DAILY [facility] Last Admin: 04/07/17 11:00 Dose: 0.4 mg - Labs Labs: 04/07/17 07:17 04/07/17 07:17 PT 10.6 SECONDS (9.7-12.2) 11/24/15 14:10 INR 1.0 11/24/15 14:10 APTT 25 SECONDS (21-34) 11/24/15 14:10 - Constitutional Appears: No Acute Distress - Head Exam Head Exam: NORMAL INSPECTION - Eye Exam Eye Exam: Normal appearance. absent: Conjunctival injection, Scleral icterus - ENT Exam ENT Exam: Mucous Membranes Dry - Neck Exam Additional comments: trach in place - Respiratory Exam Respiratory Exam: NORMAL BREATHING PATTERN. absent: Accessory Muscle Use, Rales , Rhonchi, Wheezes, Respiratory Distress - Cardiovascular Exam Cardiovascular Exam: REGULAR RHYTHM, +S2 - GI/Abdominal Exam GI & Abdominal Exam: Soft, Normal Bowel Sounds. absent: Firm, Guarding, Rigid - Rectal Exam Rectal Exam: Deferred - Extremities Exam Additional comments: offloading boots secure - Back Exam Back Exam: NORMAL INSPECTION. absent: rash noted - Neurological Exam Neurological Exam: Awake - Skin Skin Exam: Dry, Intact, Normal Color, Warm Assessment and Plan - Assessment and Plan (Free Text) Assessment: 66 yo M with unknown pmhx who was found unresponsive in driveway s/p cardiac arrest and anoxic encephalopathy Plan: UTI + Proteus Mirabilis Amikacin 250mg IV Q12 blood cultures prelim no growth x 2 urine culture prelim Gram negative patsy Patient given 1gm 1 dose vancomycin 04/[address] [place] [address] Tylenol 650mg po q6 PEG for fever temp > 100.4F Urinary Retention Take note condom cath not always securely in place so Is and Os are approximates as patient wets bed Flomax 0.4mg PEG daily Proscar 5mg PEG daily continue Bethanecol 50mg PEG TID- started after persistent retention and found to be effective. monitor I's and O's check bladder scan for residual urine three times weekly Anoxic brain injury s/p cardiac arrest in 05/2015 no acute changes Pt has non spontaneous movements. continue current management. Continue tube feeds- feeds decreased to 30cc/hr Florastor 250mg PO TID via PEG Respiratory failure Trach in place, continue daily monitory for secretions. No change in management at this time. Continue with aggressive suctioning multiple times a day per respiratory therapist. Thick secretions Duoneb 3ml INH Q8 and Mucomist 4ml INH Q8 Continue to monitor Sacral Ulcers Healed Cont with offloading/cushioning/turning Continue frequent turning, protective ointment and skin checks. Continue wound care Constipation Resolved, patient currently has diarrhea. Nursing to record bowel movements Dulcolax 5mg PO Q72 hours prn constipation/no bowel movement CAD (coronary artery disease) s/p cardiac stents on 06/13/15 Cont ASA 81mg via PEG daily Cont Coreg 3.125mg PEG BID Cont Plavix 75mg PO daily Seizures Cont Keppra 500mg PEG BID for seizure prophylaxis Monitor for activity Lower extremity edema Improved Monitor Prophylactic measure Pepcid 20 mg PEG BID Lovenox 40mg SC daily SCDs and offloading boots continue to turn and reposition q2h Feeds @ 40cc/hr Continue to monitor medication administrations and clinical presentation weekly labs Case discussed with Dr. Daren Ramon PGY1 <Caden Mercedes - Last Filed: 04/12/17 17:42> Objective - Vital Signs/Intake and Output Vital Signs (last 24 hours): Temp Pulse Resp BP Pulse Ox 97.9 F 98 H 20 110/67 97 04/12/17 08:00 04/12/17 08:00 04/12/17 08:00 04/12/17 08:00 04/12/17 08:00 Intake and Output: 04/12/17 04/12/17 06:59 18:59 Intake Total 1040 420 Output Total 900 300 Balance 140 120 - Medications Medications: Current Medications Acetaminophen (Tylenol 650mg/20.3ml Solution Ud) 650 mg PEG Q6 PRN PRN Reason: Fever >100.4 F Last Admin: 04/07/17 02:45 Dose: 650 mg Acetylcysteine (Acetylcysteine 20%) 4 ml INH RQ6 [facility] Last Admin: 04/12/17 13:37 Dose: 4 ml Albuterol/Ipratropium (Duoneb 3 Mg/0.5 Mg (3 Ml) Ud) 3 ml INH RQ6 [facility] Last Admin: 04/12/17 13:37 Dose: 3 ml Aspirin (Aspirin Chewable) 81 mg PO DAILY [facility] Last Admin: 04/12/17 11:06 Dose: 81 mg Bethanechol Chloride (Urecholine) 50 mg PO TID [facility] Last Admin: 04/12/17 13:14 Dose: 50 mg Carvedilol (Coreg) 3.125 mg PEG BID [facility] Last Admin: 04/12/17 11:05 Dose: 3.125 mg Clopidogrel Bisulfate (Plavix) 75 mg PO DAILY [facility] Last Admin: 04/12/17 11:03 Dose: 75 mg Famotidine (Pepcid) 20 mg PEG BID [facility] Last Admin: 04/12/17 11:04 Dose: 20 mg Finasteride (Proscar) 5 mg PO DAILY [facility] Last Admin: 04/12/17 11:04 Dose: 5 mg Amikacin Sulfate 250 mg/ (Sodium Chloride) 101 mls @ 100 mls/hr IV Q12 [facility] Last Admin: 04/12/17 11:05 Dose: 100 mls/hr Levetiracetam (Keppra) 500 mg PO BID [facility] Last Admin: 04/12/17 11:06 Dose: 500 mg Methylprednisolone (Solu-Medrol) 40 mg IV Q8 [facility] Last Admin: 04/12/17 13:15 Dose: 40 mg Saccharomyces Boulardii (Florastor) 250 mg PO TID [facility] Last Admin: 04/12/17 13:15 Dose: 250 mg Tamsulosin HCl (Flomax) 0.4 mg PO DAILY [facility] Last Admin: 04/12/17 11:04 Dose: 0.4 mg - Labs Labs: 04/11/17 08:30 04/11/17 08:30 PT 10.6 SECONDS (9.7-12.2) 11/24/15 14:10 INR 1.0 11/24/15 14:10 APTT 25 SECONDS (21-34) 11/24/15 14:10 Attending/Attestation - Attestation I have personally seen and examined this patient.: Yes I have fully participated in the care of the patient.: Yes I have reviewed all pertinent clinical information, including history, physical exam and plan: Yes Notes (Text): 04/12/17 17:37 This patient was seen and examined at 10:30 AM 04/08/17 History, Exam, Assessment and Plan were thoroughly gone over with the resident Urine Culture from 04/06/17 was positive for Proteus and patient started on Amikacin 250 mg IV Q12H (Meropenem was not used as patient was already treated with this upon last positive Urine Culture) Medicine Team please also be aware that the amount of urine produced based upon the amount of urine in the catheter bag is likely not accurate as Nurse Orozco has explained to me that there have been many times where the urine condom catheter has slipped off and patient has wet the bed instead. As per Nurse Orozco, the last Bladder Scan (which is being performed 3x/week) was done on 04/06/17 and there was 80 mL of urine in the bladder. Course breath sounds during my exam. Likely secondary to thick mucous secretions therefore Bilingual Secretary instilled small of amount of sterile saline into trach and then suctioned and thick mucous plug was removed. Breath sounds improved afterwards. Humidifier for the Trach should be changed when only 25% of fluid left. Caden Mercedes D.O.
[2017-04-08 08:14] LABS: BASO % 0.3 % (0.0-2.0); EOS # 0.4 K/uL (0.0-0.7); EOS % 3.3 % (0.0-4.0); HEMOGLOBIN 11.9 g/dL (12.0-18.0); LYMPH # 2.4 K/uL (1.0-4.3); LYMPH % 20.8 % (20.0-40.0); MEAN CORPUSCULAR HEMOGLOBIN 28.9 pg (27.0-31.0); MEAN CORPUSCULAR HGB CONC 31.8 g/dL (33.0-37.0); MEAN PLATELET VOLUME 9.7 fL (7.2-11.7); MONO # 0.6 K/uL (0.0-0.8); MONO % 5.5 % (0.0-10.0); NEUT # 8.1 K/uL (1.8-7.0); NEUT % 70.1 % (50.0-75.0); RBC 4.13 Mil/uL (4.40-5.90); RED CELL DISTRIBUTION WIDTH 15.3 % (11.5-14.5); WHITE BLOOD COUNT 11.6 K/uL (4.8-10.8)
--- NOTE | 2017-04-08 08:35 | RAD ---
HISTORY: wheezing, COMPARISON: 04/06/2017 FINDINGS: LUNGS: Mild venous congestion. Linear atelectatic changes in the right midlung zone and left lung base. Tracheostomy tube projects over the right lung apex, likely related to patient rotation. Clinical correlation. PLEURA: As above. CARDIOVASCULAR: Cardiomegaly. Enlarged ectatic aorta. OSSEOUS STRUCTURES: No significant abnormalities. VISUALIZED UPPER ABDOMEN: Normal. OTHER FINDINGS: None. IMPRESSION: Mild venous congestion. Linear atelectatic changes in the right midlung zone and left lung base. Tracheostomy tube projects over the right lung apex, likely related to patient rotation. Clinical correlation.
[2017-04-08 08:37] LABS: ALBUMIN 3.4 g/dL (3.5-5.0)
[2017-04-08 08:40] LABS: ALT/SGPT 43 U/L (21-72); AST/SGOT 25 U/L (17-59); BLOOD UREA NITROGEN 15 mg/dL (9-20); GFR NON-AFRICAN AMERICAN > 60
[2017-04-08 08:41] LABS: CALCIUM 7.8 mg/dl (8.6-10.4)
[2017-04-08 08:43] LABS: ALB/GLOB RATIO 0.9 (1.0-2.1)
[2017-04-08] MEDS: levETIRAcetam 100 mg/ml (5ml) Oral Syringe PEG SCH ×2 (09:40→18:16)
[2017-04-08] MEDS: Saccharomyces Boulardi 250 mg Cap PO SCH ×3 (09:40→18:16)
[2017-04-09] MEDS: Albuterol-Ipratrop 3 mg / 0.5 (3 ml) UD INH SCH ×3 (01:10→18:20)
[2017-04-09] MEDS: Acetylcysteine 20% Inhal Soln (4ml) INH SCH ×3 (01:10→18:20)
[2017-04-09 07:41] LABS: ALBUMIN 3.2 g/dL (3.5-5.0)
[2017-04-09 07:43] LABS: ALB/GLOB RATIO 0.8 (1.0-2.1); AST/SGOT 33 U/L (17-59); BLOOD UREA NITROGEN 15 mg/dL (9-20); GFR NON-AFRICAN AMERICAN > 60
[2017-04-09 07:44] LABS: ALT/SGPT 38 U/L (21-72)
[2017-04-09 07:45] LABS: CALCIUM 8.1 mg/dl (8.6-10.4)
[2017-04-09 07:59] LABS: BASO % 0.3 % (0.0-2.0); EOS # 0.6 K/uL (0.0-0.7); EOS % 6.2 % (0.0-4.0); HEMOGLOBIN 11.3 g/dL (12.0-18.0); LYMPH # 1.5 K/uL (1.0-4.3); LYMPH % 15.1 % (20.0-40.0); MEAN CELL VOLUME 88.4 fL (80.0-94.0); MEAN CORPUSCULAR HEMOGLOBIN 28.9 pg (27.0-31.0); MEAN CORPUSCULAR HGB CONC 32.8 g/dL (33.0-37.0); MEAN PLATELET VOLUME 9.4 fL (7.2-11.7); MONO # 1.3 K/uL (0.0-0.8); MONO % 12.8 % (0.0-10.0); NEUT # 6.6 K/uL (1.8-7.0); NEUT % 65.6 % (50.0-75.0); RBC 3.9 Mil/uL (4.40-5.90); RED CELL DISTRIBUTION WIDTH 14.7 % (11.5-14.5); WHITE BLOOD COUNT 10.1 K/uL (4.8-10.8)
--- NOTE | 2017-04-09 20:22 | CP.PCM.PCO ---
Physician Communication Note - Physician Communication Note Physician Communication Note: written progress note in chart secondary to [employer] outage
[2017-04-10] MEDS: Acetylcysteine 20% Inhal Soln (4ml) INH SCH ×4 (01:23→19:09)
[2017-04-10] MEDS: Albuterol-Ipratrop 3 mg / 0.5 (3 ml) UD INH SCH ×4 (01:23→19:09)
--- NOTE | 2017-04-10 08:04 | CP.PCM.PN ---
<Imani Ramon - Last Filed: 04/10/17 17:16> Subjective - Date & Time of Evaluation Date of Evaluation: 04/10/17 Time of Evaluation: 09:15 - Subjective Subjective: PGY1 Medicine note for Dr. Hallman Patient seen and examined at bedside. Patient did not spike temp overnight Patient has white count of 10.3 this AM blood cultures prelim no growth x 2 urine culture +Proteus Patient has good UO Tolerating PEG feeds @ 40cc/hr PEG site clean/dry/intact Patient has nonspontaneous, non directed movements ROS unobtainable due to clinical condition Objective - Vital Signs/Intake and Output Vital Signs (last 24 hours): Temp Pulse Resp BP Pulse Ox 98.2 F 80 20 119/80 99 04/10/17 00:37 04/10/17 00:37 04/10/17 00:37 04/10/17 00:37 04/10/17 00:37 Intake and Output: 04/10/17 04/10/17 06:59 18:59 Intake Total 840 Output Total 650 Balance 190 - Medications Medications: Current Medications Acetaminophen (Tylenol 650mg/20.3ml Solution Ud) 650 mg PEG Q6 PRN PRN Reason: Fever >100.4 F Last Admin: 04/07/17 02:45 Dose: 650 mg Acetylcysteine (Acetylcysteine 20%) 4 ml INH RQ6 [facility] Last Admin: 04/10/17 07:49 Dose: 4 ml Albuterol/Ipratropium (Duoneb 3 Mg/0.5 Mg (3 Ml) Ud) 3 ml INH RQ6 [facility] Last Admin: 04/10/17 07:58 Dose: 3 ml Aspirin (Aspirin Chewable) 81 mg PEG DAILY [facility] Last Admin: 04/08/17 09:40 Dose: 81 mg Bethanechol Chloride (Urecholine) 50 mg PEG TID [facility] Last Admin: 04/08/17 18:16 Dose: 50 mg Bisacodyl (Dulcolax) 5 mg PO Q72H PRN PRN Reason: Constipation Last Admin: 03/20/17 10:57 Dose: 5 mg Carvedilol (Coreg) 3.125 mg PEG BID [facility] Last Admin: 04/08/17 18:16 Dose: 3.125 mg Clopidogrel Bisulfate (Plavix) 75 mg PEG DAILY [facility] Last Admin: 04/08/17 09:41 Dose: 75 mg Emollient Ointment (Vaseline Oint) 5 gm TOP BID PRN PRN Reason: Dry skin Last Admin: 03/29/17 09:27 Dose: 5 gm Famotidine (Pepcid) 20 mg PEG BID [facility] Last Admin: 04/08/17 18:16 Dose: 20 mg Finasteride (Proscar) 5 mg PEG DAILY [facility] Last Admin: 04/08/17 09:41 Dose: 5 mg Amikacin Sulfate 250 mg/ (Sodium Chloride) 101 mls @ 100 mls/hr IV Q12 [facility] Last Admin: 04/09/17 23:49 Dose: 100 mls/hr Levetiracetam (Keppra) 500 mg PEG BID [facility] Last Admin: 04/08/17 18:16 Dose: 500 mg Saccharomyces Boulardii (Florastor) 250 mg PO TID [facility] Last Admin: 04/08/17 18:16 Dose: 250 mg Tamsulosin HCl (Flomax) 0.4 mg PEG DAILY [facility] Last Admin: 04/08/17 09:41 Dose: 0.4 mg - Labs Labs: 04/09/17 04:00 04/09/17 19:00 PT 10.6 SECONDS (9.7-12.2) 11/24/15 14:10 INR 1.0 11/24/15 14:10 APTT 25 SECONDS (21-34) 11/24/15 14:10 - Constitutional Appears: No Acute Distress - Head Exam Head Exam: NORMAL INSPECTION - Eye Exam Eye Exam: Normal appearance. absent: Conjunctival injection, Scleral icterus - ENT Exam ENT Exam: Mucous Membranes Dry - Neck Exam Additional comments: trach collar in place - Respiratory Exam Respiratory Exam: Rhonchi, NORMAL BREATHING PATTERN. absent: Accessory Muscle Use, Rales, Wheezes, Respiratory Distress - Cardiovascular Exam Cardiovascular Exam: REGULAR RHYTHM, RRR, +S1, +S2 - GI/Abdominal Exam GI & Abdominal Exam: Soft, Normal Bowel Sounds - Extremities Exam Extremities Exam: absent: Pedal Edema - Back Exam Back Exam: NORMAL INSPECTION. absent: rash noted, tenderness - Neurological Exam Neurological Exam: Awake - Skin Skin Exam: Dry, Intact, Normal Color, Warm Assessment and Plan - Assessment and Plan (Free Text) Assessment: 66 yo M with unknown pmhx who was found unresponsive in driveway s/p cardiac arrest and anoxic encephalopathy Plan: UTI + Proteus Mirabilis Amikacin 250mg IV Q12 blood cultures prelim no growth x 2 urine culture prelim Gram negative patsy Patient given 1gm 1 dose vancomycin 04/[address] [place] [address] Tylenol 650mg po q6 PEG for fever temp > 100.4F Urinary Retention Take note condom cath not always securely in place so Is and Os are approximates as patient wets bed Flomax 0.4mg PEG daily Proscar 5mg PEG daily continue Bethanecol 50mg PEG TID- started after persistent retention and found to be effective. monitor I's and O's check bladder scan for residual urine three times weekly Anoxic brain injury s/p cardiac arrest in 05/2015 no acute changes Pt has non spontaneous movements. continue current management. Continue tube feeds- feeds decreased to 30cc/hr Florastor 250mg PO TID via PEG Respiratory failure f/u CXR Trach in place, continue daily monitory for secretions. No change in management at this time. Continue with aggressive suctioning multiple times a day per respiratory therapist. Thick secretions Duoneb 3ml INH Q8 and Mucomist [address]ml [address]H Q8 [address]. Salgado reconsulted for possible mucous plug Sacral Ulcers Healed Cont with offloading/cushioning/turning Continue frequent turning, protective ointment and skin checks. Continue wound care Constipation Resolved, patient currently has diarrhea. Nursing to record bowel movements Dulcolax 5mg PO Q72 hours prn constipation/no bowel movement CAD (coronary artery disease) s/p cardiac stents on 06/13/15 Cont ASA 81mg via PEG daily Cont Coreg 3.125mg PEG BID Cont Plavix 75mg PO daily Seizures Cont Keppra 500mg PEG BID for seizure prophylaxis Monitor for activity Lower extremity edema Improved Monitor Prophylactic measure Pepcid 20 mg PEG BID Lovenox 40mg SC daily SCDs and offloading boots continue to turn and reposition q2h Feeds @ 40cc/hr Continue to monitor medication administrations and clinical presentation weekly labs Case discussed with Dr. Daren Ramon PGY1 <Donavan Hallman - Last Filed: 04/23/17 12:19> Objective - Vital Signs/Intake and Output Vital Signs (last 24 hours): Temp Pulse Resp BP Pulse Ox 98.8 F 89 18 101/64 99 04/23/17 07:00 04/23/17 07:00 04/23/17 07:00 04/23/17 07:00 04/23/17 07:00 Intake and Output: 04/23/17 04/23/17 06:59 18:59 Intake Total 1040 Output Total 750 Balance 290 - Medications Medications: Current Medications Acetaminophen (Tylenol 650mg/20.3ml Solution Ud) 650 mg PEG Q6 PRN PRN Reason: Fever >100.4 F Last Admin: 04/07/17 02:45 Dose: 650 mg Acetylcysteine (Acetylcysteine 20%) 4 ml INH RQ6 [facility] Last Admin: 04/23/17 08:08 Dose: 4 ml Albuterol/Ipratropium (Duoneb 3 Mg/0.5 Mg (3 Ml) Ud) 3 ml INH RQ6 [facility] Last Admin: 04/23/17 08:08 Dose: 3 ml Aspirin (Aspirin Chewable) 81 mg PO DAILY [facility] Last Admin: 04/23/17 09:08 Dose: 81 mg Bethanechol Chloride (Urecholine) 50 mg PO TID [facility] Last Admin: 04/23/17 09:08 Dose: 50 mg Carvedilol (Coreg) 3.125 mg PEG BID [facility] Last Admin: 04/23/17 09:11 Dose: Not Given Clopidogrel Bisulfate (Plavix) 75 mg PO DAILY [facility] Last Admin: 04/23/17 09:08 Dose: 75 mg Famotidine (Pepcid) 20 mg PEG BID [facility] Last Admin: 04/23/17 09:09 Dose: 20 mg Finasteride (Proscar) 5 mg PO DAILY [facility] Last Admin: 04/23/17 09:08 Dose: 5 mg Levetiracetam (Keppra) 500 mg PO BID [facility] Last Admin: 04/23/17 09:09 Dose: 500 mg Methylprednisolone (Solu-Medrol) 20 mg IVP DAILY [facility] Stop: 04/24/17 10:01 Last Admin: 04/23/17 09:10 Dose: 20 mg Saccharomyces Boulardii (Florastor) 250 mg PO TID [facility] Last Admin: 04/23/17 09:07 Dose: 250 mg Tamsulosin HCl (Flomax) 0.4 mg PO DAILY [facility] Last Admin: 04/23/17 09:09 Dose: 0.4 mg - Labs Labs: 04/20/17 07:11 04/20/17 07:11 PT 10.6 SECONDS (9.7-12.2) 11/24/15 14:10 INR 1.0 11/24/15 14:10 APTT 25 SECONDS (21-34) 11/24/15 14:10 Attending/Attestation - Attestation I have personally seen and examined this patient.: Yes I have fully participated in the care of the patient.: Yes I have reviewed all pertinent clinical information, including history, physical exam and plan: Yes Notes (Text): Patient seen and examined with the resident. Agree with the resident's evaluation, assessment and plan. recurrent UTI's, Anoxic brain Injury, Cardiac arrest, respiratory failure now with trach collar
[2017-04-10] MEDS: Saccharomyces Boulardi 250 mg Cap PO SCH ×3 (10:54→17:23)
[2017-04-10] MEDS: levETIRAcetam 100 mg/ml (5ml) Oral Syringe PEG SCH (10:54)
[2017-04-10 12:57] LABS: ALBUMIN 3.4 g/dL (3.5-5.0)
[2017-04-10 13:00] LABS: AST/SGOT 37 U/L (17-59); GFR NON-AFRICAN AMERICAN > 60
[2017-04-10 13:01] LABS: ALB/GLOB RATIO 0.8 (1.0-2.1); ALT/SGPT 42 U/L (21-72); BLOOD UREA NITROGEN 15 mg/dL (9-20); CALCIUM 8.3 mg/dl (8.6-10.4)
[2017-04-10 14:46] LABS: BASO % 0.4 % (0.0-2.0); EOS # 0.5 K/uL (0.0-0.7); EOS % 5.1 % (0.0-4.0); HEMOGLOBIN 11.7 g/dL (12.0-18.0); LYMPH # 2.2 K/uL (1.0-4.3); LYMPH % 21.4 % (20.0-40.0); MEAN CELL VOLUME 88.6 fL (80.0-94.0); MEAN CORPUSCULAR HEMOGLOBIN 28.4 pg (27.0-31.0); MEAN CORPUSCULAR HGB CONC 32.1 g/dL (33.0-37.0); MONO # 1.3 K/uL (0.0-0.8); NEUT # 6.2 K/uL (1.8-7.0); NEUT % 60.1 % (50.0-75.0); RBC 4.1 Mil/uL (4.40-5.90); RED CELL DISTRIBUTION WIDTH 14.9 % (11.5-14.5); WHITE BLOOD COUNT 10.3 K/uL (4.8-10.8)
--- NOTE | 2017-04-10 14:49 | RAD ---
HISTORY: change in breathing COMPARISON: 04/07/2017 FINDINGS: LUNGS: Tracheostomy tube projects over the right lung apex, likely related to patient positioning. Clinical correlation. Mild venous congestion. Patchy consolidative changes at the right lung base. Linear atelectasis at both lung bases. PLEURA: As above. CARDIOVASCULAR: Cardiomegaly. OSSEOUS STRUCTURES: No significant abnormalities. VISUALIZED UPPER ABDOMEN: Normal. OTHER FINDINGS: None. IMPRESSION: Tracheostomy tube projects over the right lung apex, likely related to patient positioning. Clinical correlation. Mild venous congestion. Patchy consolidative changes at the right lung base. Linear atelectasis at both lung bases.
[2017-04-10] MEDS: levETIRAcetam 100 mg/ml (5ml) Oral Syringe PO SCH (17:22)
[2017-04-11] MEDS: Albuterol-Ipratrop 3 mg / 0.5 (3 ml) UD INH SCH ×4 (02:27→20:37)
[2017-04-11] MEDS: Acetylcysteine 20% Inhal Soln (4ml) INH SCH ×4 (02:27→20:39)
--- NOTE | 2017-04-11 07:50 | CP.PCM.PN ---
<DeanneDrake - Last Filed: 04/11/17 07:48> Subjective - Date & Time of Evaluation Date of Evaluation: 04/11/17 Time of Evaluation: 07:30 - Subjective Subjective: PGY1 Medicine note for Dr. Hallman Patient seen and examined at bedside. Patient afebrile Patient suctioned this AM blood cultures prelim no growth x 2 urine culture +Proteus Patient has good UO Tolerating PEG feeds @ 40cc/hr PEG site clean/dry/intact Patient has nonspontaneous, non directed movements ROS unobtainable due to clinical condition Objective - Vital Signs/Intake and Output Vital Signs (last 24 hours): Temp Pulse Resp BP Pulse Ox 98.1 F 77 20 115/73 99 04/11/17 00:40 04/11/17 00:40 04/11/17 00:40 04/11/17 00:40 04/11/17 00:40 Intake and Output: 04/11/17 04/11/17 06:59 18:59 Intake Total 940 Output Total 601 Balance 339 - Medications Medications: Current Medications Acetaminophen (Tylenol 650mg/20.3ml Solution Ud) 650 mg PEG Q6 PRN PRN Reason: Fever >100.4 F Last Admin: 04/07/17 02:45 Dose: 650 mg Acetylcysteine (Acetylcysteine 20%) 4 ml INH RQ6 [facility] Last Admin: 04/11/17 02:27 Dose: 4 ml Albuterol/Ipratropium (Duoneb 3 Mg/0.5 Mg (3 Ml) Ud) 3 ml INH RQ6 [facility] Last Admin: 04/11/17 02:27 Dose: 3 ml Aspirin (Aspirin Chewable) 81 mg PO DAILY [facility] Last Admin: 04/10/17 21:32 Dose: Not Given Bethanechol Chloride (Urecholine) 50 mg PO TID [facility] Last Admin: 04/10/17 17:23 Dose: 50 mg Carvedilol (Coreg) 3.125 mg PEG BID [facility] Last Admin: 04/10/17 17:23 Dose: 3.125 mg Famotidine (Pepcid) 20 mg PEG BID [facility] Last Admin: 04/10/17 17:23 Dose: 20 mg Finasteride (Proscar) 5 mg PO DAILY [facility] Amikacin Sulfate 250 mg/ (Sodium Chloride) 101 mls @ 100 mls/hr IV Q12 [facility] Last Admin: 04/10/17 21:42 Dose: 100 mls/hr Levetiracetam (Keppra) 500 mg PO BID [facility] Last Admin: 04/10/17 17:22 Dose: 500 mg Saccharomyces Boulardii (Florastor) 250 mg PO TID [facility] Last Admin: 04/10/17 17:23 Dose: 250 mg Tamsulosin HCl (Flomax) 0.4 mg PO DAILY [facility] - Labs Labs: 04/10/17 14:35 04/10/17 12:00 PT 10.6 SECONDS (9.7-12.2) 11/24/15 14:10 INR 1.0 11/24/15 14:10 APTT 25 SECONDS (21-34) 11/24/15 14:10 - Constitutional Appears: Non-toxic, No Acute Distress - Head Exam Head Exam: NORMAL INSPECTION - Eye Exam Eye Exam: Normal appearance. absent: Conjunctival injection, Scleral icterus - ENT Exam ENT Exam: Mucous Membranes Moist Additional comments: trach collar in place - Neck Exam Additional comments: trach collar in place - Respiratory Exam Respiratory Exam: Clear to Ausculation Bilateral, NORMAL BREATHING PATTERN. absent: Rales, Rhonchi, Wheezes - Cardiovascular Exam Cardiovascular Exam: REGULAR RHYTHM, +S1, +S2 - GI/Abdominal Exam GI & Abdominal Exam: absent: Tenderness - Neurological Exam Neurological Exam: Awake - Skin Skin Exam: Dry, Intact, Normal Color, Warm Assessment and Plan - Assessment and Plan (Free Text) Assessment: 66 yo M with unknown pmhx who was found unresponsive in driveway s/p cardiac arrest and anoxic encephalopathy Plan: UTI + Proteus Mirabilis Amikacin 250mg IV Q12 blood cultures prelim no growth x 2 urine culture prelim Gram negative patsy Patient given 1gm 1 dose vancomycin 04/[address] [place] [address] Tylenol 650mg po q6 PEG for fever temp > 100.4F Urinary Retention Take note condom cath not always securely in place so Is and Os are approximates as patient wets bed Flomax 0.4mg PEG daily Proscar 5mg PEG daily continue Bethanecol 50mg PEG TID- started after persistent retention and found to be effective. monitor I's and O's check bladder scan for residual urine three times weekly Anoxic brain injury s/p cardiac arrest in 05/2015 no acute changes Pt has non spontaneous movements. continue current management. Continue tube feeds- 40cc/hr Florastor 250mg PO TID via PEG Respiratory failure f/u CXR Trach in place, continue daily monitory for secretions. No change in management at this time. Continue with aggressive suctioning multiple times a day per respiratory therapist. Thick secretions Duoneb 3ml INH Q8 and Mucomist [address] Salgado reconsulted for possible mucous plug Sacral Ulcers Healed Cont with offloading/cushioning/turning Continue frequent turning, protective ointment and skin checks. Continue wound care Constipation Resolved, patient currently has diarrhea. Nursing to record bowel movements Dulcolax 5mg PO Q72 hours prn constipation/no bowel movement CAD (coronary artery disease) s/p cardiac stents on 06/13/15 Cont ASA 81mg via PEG daily Cont Coreg 3.125mg PEG BID Cont Plavix 75mg PO daily Seizures Cont Keppra 500mg PEG BID for seizure prophylaxis Monitor for activity Lower extremity edema Improved Monitor Prophylactic measure Pepcid 20 mg PEG BID Lovenox 40mg SC daily SCDs and offloading boots continue to turn and reposition q2h Feeds @ 40cc/hr Continue to monitor medication administrations and clinical presentation weekly labs <Donavan Hallman - Last Filed: 04/23/17 12:20> Objective - Vital Signs/Intake and Output Vital Signs (last 24 hours): Temp Pulse Resp BP Pulse Ox 98.8 F 89 18 101/64 99 04/23/17 07:00 04/23/17 07:00 04/23/17 07:00 04/23/17 07:00 04/23/17 07:00 Intake and Output: 04/23/17 04/23/17 06:59 18:59 Intake Total 1040 Output Total 750 Balance 290 - Medications Medications: Current Medications Acetaminophen (Tylenol 650mg/20.3ml Solution Ud) 650 mg PEG Q6 PRN PRN Reason: Fever >100.4 F Last Admin: 04/07/17 02:45 Dose: 650 mg Acetylcysteine (Acetylcysteine 20%) 4 ml INH RQ6 [facility] Last Admin: 04/23/17 08:08 Dose: 4 ml Albuterol/Ipratropium (Duoneb 3 Mg/0.5 Mg (3 Ml) Ud) 3 ml INH RQ6 [facility] Last Admin: 04/23/17 08:08 Dose: 3 ml Aspirin (Aspirin Chewable) 81 mg PO DAILY [facility] Last Admin: 04/23/17 09:08 Dose: 81 mg Bethanechol Chloride (Urecholine) 50 mg PO TID [facility] Last Admin: 04/23/17 09:08 Dose: 50 mg Carvedilol (Coreg) 3.125 mg PEG BID [facility] Last Admin: 04/23/17 09:11 Dose: Not Given Clopidogrel Bisulfate (Plavix) 75 mg PO DAILY [facility] Last Admin: 04/23/17 09:08 Dose: 75 mg Famotidine (Pepcid) 20 mg PEG BID [facility] Last Admin: 04/23/17 09:09 Dose: 20 mg Finasteride (Proscar) 5 mg PO DAILY [facility] Last Admin: 04/23/17 09:08 Dose: 5 mg Levetiracetam (Keppra) 500 mg PO BID [facility] Last Admin: 04/23/17 09:09 Dose: 500 mg Methylprednisolone (Solu-Medrol) 20 mg IVP DAILY [facility] Stop: 04/24/17 10:01 Last Admin: 04/23/17 09:10 Dose: 20 mg Saccharomyces Boulardii (Florastor) 250 mg PO TID [facility] Last Admin: 04/23/17 09:07 Dose: 250 mg Tamsulosin HCl (Flomax) 0.4 mg PO DAILY [facility] Last Admin: 04/23/17 09:09 Dose: 0.4 mg - Labs Labs: 04/20/17 07:11 04/20/17 07:11 PT 10.6 SECONDS (9.7-12.2) 11/24/15 14:10 INR 1.0 11/24/15 14:10 APTT 25 SECONDS (21-34) 11/24/15 14:10 Attending/Attestation - Attestation I have personally seen and examined this patient.: Yes I have fully participated in the care of the patient.: Yes I have reviewed all pertinent clinical information, including history, physical exam and plan: Yes Notes (Text): Patient seen and examined with the resident. Agree with the resident's evaluation, assessment and plan. recurrent UTI's, Anoxic brain Injury, Cardiac arrest, respiratory failure now with trach collar
[2017-04-11 08:40] LABS: BASO % 0.3 % (0.0-2.0); EOS # 0.5 K/uL (0.0-0.7); HEMOGLOBIN 11.7 g/dL (12.0-18.0); LYMPH # 1.8 K/uL (1.0-4.3); LYMPH % 17.4 % (20.0-40.0); MEAN CELL VOLUME 88.5 fL (80.0-94.0); MEAN CORPUSCULAR HEMOGLOBIN 29.1 pg (27.0-31.0); MEAN CORPUSCULAR HGB CONC 32.8 g/dL (33.0-37.0); MEAN PLATELET VOLUME 9.1 fL (7.2-11.7); MONO # 1.1 K/uL (0.0-0.8); MONO % 10.9 % (0.0-10.0); NEUT # 6.7 K/uL (1.8-7.0); NEUT % 66.4 % (50.0-75.0); RBC 4.04 Mil/uL (4.40-5.90); RED CELL DISTRIBUTION WIDTH 14.8 % (11.5-14.5); WHITE BLOOD COUNT 10.1 K/uL (4.8-10.8)
[2017-04-11 08:47] LABS: ALBUMIN 3.6 g/dL (3.5-5.0)
[2017-04-11 08:50] LABS: GFR NON-AFRICAN AMERICAN > 60
[2017-04-11 08:51] LABS: ALB/GLOB RATIO 0.8 (1.0-2.1); ALT/SGPT 37 U/L (21-72); AST/SGOT 24 U/L (17-59); BLOOD UREA NITROGEN 16 mg/dL (9-20); CALCIUM 8.7 mg/dl (8.6-10.4)
[2017-04-11] MEDS: levETIRAcetam 100 mg/ml (5ml) Oral Syringe PO SCH ×2 (11:00→18:00)
[2017-04-11] MEDS: Saccharomyces Boulardi 250 mg Cap PO SCH ×3 (11:00→18:00)
[2017-04-11] MEDS: MethylPREDNISolone 40 mg Vial IV SCH ×2 (14:56→21:34)
--- NOTE | 2017-04-11 19:40 | CP.PCM.PN ---
Subjective - Date & Time of Evaluation Date of Evaluation: 04/11/17 Time of Evaluation: 12:15 - Subjective Subjective: Asked to reevaluate patient for mucous plug Patient seen and examined Secretions noted from endotracheal tube Chest x-ray consistent with right lung infiltrate Saturating well Positive wheezing Objective - Vital Signs/Intake and Output Vital Signs (last 24 hours): Temp Pulse Resp BP Pulse Ox 98.2 F 79 20 101/59 L 100 04/11/17 16:00 04/11/17 16:00 04/11/17 16:00 04/11/17 16:00 04/11/17 16:00 Intake and Output: 04/11/17 04/12/17 18:59 06:59 Intake Total 620 Output Total 400 Balance 220 - Medications Medications: Current Medications Acetaminophen (Tylenol 650mg/20.3ml Solution Ud) 650 mg PEG Q6 PRN PRN Reason: Fever >100.4 F Last Admin: 04/07/17 02:45 Dose: 650 mg Acetylcysteine (Acetylcysteine 20%) 4 ml INH RQ6 [facility] Last Admin: 04/11/17 13:30 Dose: 4 ml Albuterol/Ipratropium (Duoneb 3 Mg/0.5 Mg (3 Ml) Ud) 3 ml INH RQ6 [facility] Last Admin: 04/11/17 13:30 Dose: 3 ml Aspirin (Aspirin Chewable) 81 mg PO DAILY [facility] Last Admin: 04/11/17 11:00 Dose: 81 mg Bethanechol Chloride (Urecholine) 50 mg PO TID [facility] Last Admin: 04/11/17 19:02 Dose: 50 mg Carvedilol (Coreg) 3.125 mg PEG BID [facility] Last Admin: 04/11/17 18:00 Dose: 3.125 mg Clopidogrel Bisulfate (Plavix) 75 mg PO DAILY [facility] Last Admin: 04/11/17 13:02 Dose: 75 mg Famotidine (Pepcid) 20 mg PEG BID [facility] Last Admin: 04/11/17 18:00 Dose: 20 mg Finasteride (Proscar) 5 mg PO DAILY [facility] Last Admin: 04/11/17 11:00 Dose: 5 mg Amikacin Sulfate 250 mg/ (Sodium Chloride) 101 mls @ 100 mls/hr IV Q12 [facility] Last Admin: 04/11/17 11:00 Dose: 100 mls/hr Levetiracetam (Keppra) 500 mg PO BID [facility] Last Admin: 04/11/17 18:00 Dose: 500 mg Methylprednisolone (Solu-Medrol) 40 mg IV Q8 [facility] Last Admin: 04/11/17 14:56 Dose: 40 mg Saccharomyces Boulardii (Florastor) 250 mg PO TID [facility] Last Admin: 04/11/17 18:00 Dose: 250 mg Tamsulosin HCl (Flomax) 0.4 mg PO DAILY [facility] Last Admin: 04/11/17 11:00 Dose: 0.4 mg - Labs Labs: 04/11/17 08:30 04/11/17 08:30 PT 10.6 SECONDS (9.7-12.2) 11/24/15 14:10 INR 1.0 11/24/15 14:10 APTT 25 SECONDS (21-34) 11/24/15 14:10 - Head Exam Head Exam: ATRAUMATIC, NORMOCEPHALIC - ENT Exam ENT Exam: Mucous Membranes Moist - Respiratory Exam Respiratory Exam: Rhonchi - Cardiovascular Exam Cardiovascular Exam: REGULAR RHYTHM Assessment and Plan (1) Respiratory failure Assessment & Plan: Status post cardiac arrest/anoxic encephalopathy Status post tracheostomy Started on IV steroids And continued on nebulizer treatment Tracheal aspirate for culture and sensitivity Check procalcitonin level Status: Acute (2) Anoxic encephalopathy Status: Acute (3) STEMI (ST elevation myocardial infarction) Status: Acute (4) Cardiac arrest Status: Acute (5) Bronchopneumonia Status: Acute
[2017-04-12] MEDS: Acetylcysteine 20% Inhal Soln (4ml) INH SCH ×4 (03:12→20:08)
[2017-04-12] MEDS: Albuterol-Ipratrop 3 mg / 0.5 (3 ml) UD INH SCH ×4 (03:13→20:08)
--- NOTE | 2017-04-12 04:19 | CP.PCM.PN ---
<Drake Alicea - Last Filed: 04/12/17 06:49> Subjective - Date & Time of Evaluation Date of Evaluation: 04/12/17 Time of Evaluation: 06:30 - Subjective Subjective: PGY1 Medicine note for Dr. Hallman Patient seen and examined at bedside. Patient afebrile Patient suctioned this AM blood cultures prelim no growth x 2 urine culture +Proteus Patient has good UO Tolerating PEG feeds @ 40cc/hr PEG site clean/dry/intact Patient has nonspontaneous, non directed movements ROS unobtainable due to clinical condition Objective - Vital Signs/Intake and Output Vital Signs (last 24 hours): Temp Pulse Resp BP Pulse Ox 97.7 F 97 H 16 95/66 L 98 04/11/17 23:00 04/11/17 23:00 04/11/17 23:00 04/11/17 23:00 04/11/17 23:00 Intake and Output: 04/11/17 04/12/17 18:59 06:59 Intake Total 620 520 Output Total 400 900 Balance 220 -380 - Medications Medications: Current Medications Acetaminophen (Tylenol 650mg/20.3ml Solution Ud) 650 mg PEG Q6 PRN PRN Reason: Fever >100.4 F Last Admin: 04/07/17 02:45 Dose: 650 mg Acetylcysteine (Acetylcysteine 20%) 4 ml INH RQ6 [facility] Last Admin: 04/12/17 03:12 Dose: 4 ml Albuterol/Ipratropium (Duoneb 3 Mg/0.5 Mg (3 Ml) Ud) 3 ml INH RQ6 [facility] Last Admin: 04/12/17 03:13 Dose: 3 ml Aspirin (Aspirin Chewable) 81 mg PO DAILY [facility] Last Admin: 04/11/17 11:00 Dose: 81 mg Bethanechol Chloride (Urecholine) 50 mg PO TID [facility] Last Admin: 04/11/17 19:02 Dose: 50 mg Carvedilol (Coreg) 3.125 mg PEG BID [facility] Last Admin: 04/11/17 18:00 Dose: 3.125 mg Clopidogrel Bisulfate (Plavix) 75 mg PO DAILY [facility] Last Admin: 04/11/17 13:02 Dose: 75 mg Famotidine (Pepcid) 20 mg PEG BID [facility] Last Admin: 04/11/17 18:00 Dose: 20 mg Finasteride (Proscar) 5 mg PO DAILY [facility] Last Admin: 04/11/17 11:00 Dose: 5 mg Amikacin Sulfate 250 mg/ (Sodium Chloride) 101 mls @ 100 mls/hr IV Q12 [facility] Last Admin: 04/11/17 21:35 Dose: 100 mls/hr Levetiracetam (Keppra) 500 mg PO BID [facility] Last Admin: 04/11/17 18:00 Dose: 500 mg Methylprednisolone (Solu-Medrol) 40 mg IV Q8 [facility] Last Admin: 04/11/17 21:34 Dose: 40 mg Saccharomyces Boulardii (Florastor) 250 mg PO TID [facility] Last Admin: 04/11/17 18:00 Dose: 250 mg Tamsulosin HCl (Flomax) 0.4 mg PO DAILY [facility] Last Admin: 04/11/17 11:00 Dose: 0.4 mg - Labs Labs: 04/11/17 08:30 04/11/17 08:30 PT 10.6 SECONDS (9.7-12.2) 11/24/15 14:10 INR 1.0 11/24/15 14:10 APTT 25 SECONDS (21-34) 11/24/15 14:10 - Constitutional Appears: Non-toxic, No Acute Distress - Head Exam Head Exam: NORMAL INSPECTION - Eye Exam Eye Exam: Normal appearance - ENT Exam ENT Exam: Mucous Membranes Moist, Normal Oropharynx - Neck Exam Additional comments: trach collar in place - Respiratory Exam Respiratory Exam: Clear to Ausculation Bilateral. absent: Rales, Rhonchi, Wheezes - Cardiovascular Exam Cardiovascular Exam: REGULAR RHYTHM, +S1, +S2 - GI/Abdominal Exam GI & Abdominal Exam: absent: Tenderness - Neurological Exam Neurological Exam: Awake - Skin Skin Exam: Dry, Intact, Warm Assessment and Plan - Assessment and Plan (Free Text) Assessment: 66 yo M with unknown pmhx who was found unresponsive in driveway s/p cardiac arrest and anoxic encephalopathy Plan: UTI + Proteus Mirabilis Amikacin 250mg IV Q12 blood cultures prelim no growth x 2 urine culture prelim Gram negative patsy Patient given 1gm 1 dose vancomycin 04/[address] [place] [address] Tylenol 650mg po q6 PEG for fever temp > 100.4F Urinary Retention Take note condom cath not always securely in place so Is and Os are approximates as patient wets bed Flomax 0.4mg PEG daily Proscar 5mg PEG daily continue Bethanecol 50mg PEG TID- started after persistent retention and found to be effective. monitor I's and O's check bladder scan for residual urine three times weekly Anoxic brain injury s/p cardiac arrest in 05/2015 no acute changes Pt has non spontaneous movements. continue current management. Continue tube feeds- 40cc/hr Florastor 250mg PO TID via PEG Respiratory failure Trach in place, continue daily monitory for secretions. No change in management at this time. Continue with aggressive suctioning multiple times a day per respiratory therapist. Thick secretions Duoneb 3ml INH Q8 and Mucomist [address]ml [address] Q8 [address]. Salgado reconsulted for possible mucous plug Started on Solumedrol 40mg IV Q8H Sacral Ulcers Healed Cont with offloading/cushioning/turning Continue frequent turning, protective ointment and skin checks. Continue wound care Constipation Resolved, patient currently has diarrhea. Nursing to record bowel movements Dulcolax 5mg PO Q72 hours prn constipation/no bowel movement CAD (coronary artery disease) s/p cardiac stents on 06/13/15 Cont ASA 81mg via PEG daily Cont Coreg 3.125mg PEG BID Cont Plavix 75mg PO daily Seizures Cont Keppra 500mg PEG BID for seizure prophylaxis Monitor for activity Lower extremity edema Improved Monitor Prophylactic measure Pepcid 20 mg PEG BID Lovenox 40mg SC daily SCDs and offloading boots continue to turn and reposition q2h Feeds @ 40cc/hr Continue to monitor medication administrations and clinical presentation weekly labs <Donavan Hallman - Last Filed: 04/23/17 12:21> Objective - Vital Signs/Intake and Output Vital Signs (last 24 hours): Temp Pulse Resp BP Pulse Ox 98.8 F 89 18 101/64 99 04/23/17 07:00 04/23/17 07:00 04/23/17 07:00 04/23/17 07:00 04/23/17 07:00 Intake and Output: 04/23/17 04/23/17 06:59 18:59 Intake Total 1040 Output Total 750 Balance 290 - Medications Medications: Current Medications Acetaminophen (Tylenol 650mg/20.3ml Solution Ud) 650 mg PEG Q6 PRN PRN Reason: Fever >100.4 F Last Admin: 04/07/17 02:45 Dose: 650 mg Acetylcysteine (Acetylcysteine 20%) 4 ml INH RQ6 [facility] Last Admin: 04/23/17 08:08 Dose: 4 ml Albuterol/Ipratropium (Duoneb 3 Mg/0.5 Mg (3 Ml) Ud) 3 ml INH RQ6 [facility] Last Admin: 04/23/17 08:08 Dose: 3 ml Aspirin (Aspirin Chewable) 81 mg PO DAILY [facility] Last Admin: 04/23/17 09:08 Dose: 81 mg Bethanechol Chloride (Urecholine) 50 mg PO TID [facility] Last Admin: 04/23/17 09:08 Dose: 50 mg Carvedilol (Coreg) 3.125 mg PEG BID [facility] Last Admin: 04/23/17 09:11 Dose: Not Given Clopidogrel Bisulfate (Plavix) 75 mg PO DAILY [facility] Last Admin: 04/23/17 09:08 Dose: 75 mg Famotidine (Pepcid) 20 mg PEG BID [facility] Last Admin: 04/23/17 09:09 Dose: 20 mg Finasteride (Proscar) 5 mg PO DAILY [facility] Last Admin: 04/23/17 09:08 Dose: 5 mg Levetiracetam (Keppra) 500 mg PO BID [facility] Last Admin: 04/23/17 09:09 Dose: 500 mg Methylprednisolone (Solu-Medrol) 20 mg IVP DAILY [facility] Stop: 04/24/17 10:01 Last Admin: 04/23/17 09:10 Dose: 20 mg Saccharomyces Boulardii (Florastor) 250 mg PO TID [facility] Last Admin: 04/23/17 09:07 Dose: 250 mg Tamsulosin HCl (Flomax) 0.4 mg PO DAILY [facility] Last Admin: 04/23/17 09:09 Dose: 0.4 mg - Labs Labs: 04/20/17 07:11 04/20/17 07:11 PT 10.6 SECONDS (9.7-12.2) 11/24/15 14:10 INR 1.0 11/24/15 14:10 APTT 25 SECONDS (21-34) 11/24/15 14:10 Attending/Attestation - Attestation I have personally seen and examined this patient.: Yes I have fully participated in the care of the patient.: Yes I have reviewed all pertinent clinical information, including history, physical exam and plan: Yes Notes (Text): Patient seen and examined with the resident. Agree with the resident's evaluation, assessment and plan. recurrent UTI's, Anoxic brain Injury, Cardiac arrest, respiratory failure now with trach collar
[2017-04-12] MEDS: MethylPREDNISolone 40 mg Vial IV SCH ×3 (07:00→21:01)
[2017-04-12] MEDS: levETIRAcetam 100 mg/ml (5ml) Oral Syringe PO SCH ×2 (11:06→18:27)
[2017-04-12] MEDS: Saccharomyces Boulardi 250 mg Cap PO SCH ×3 (11:06→18:27)
[2017-04-13] MEDS: Albuterol-Ipratrop 3 mg / 0.5 (3 ml) UD INH SCH ×4 (01:29→19:25)
[2017-04-13] MEDS: Acetylcysteine 20% Inhal Soln (4ml) INH SCH ×4 (01:29→19:25)
[2017-04-13] MEDS: MethylPREDNISolone 40 mg Vial IV SCH ×3 (06:12→13:39)
[2017-04-13 07:03] LABS: BASO % 0.1 % (0.0-2.0); HEMOGLOBIN 12.2 g/dL (12.0-18.0); LYMPH # 1.1 K/uL (1.0-4.3); LYMPH % 5.3 % (20.0-40.0); MEAN CELL VOLUME 89.1 fL (80.0-94.0); MEAN CORPUSCULAR HEMOGLOBIN 28.5 pg (27.0-31.0); MEAN PLATELET VOLUME 8.9 fL (7.2-11.7); NEUT # 18.6 K/uL (1.8-7.0); NEUT % 89.6 % (50.0-75.0); PLATELET COUNT 353 K/uL (130-400); RBC 4.29 Mil/uL (4.40-5.90); RED CELL DISTRIBUTION WIDTH 14.7 % (11.5-14.5)
[2017-04-13 07:07] LABS: WHITE BLOOD COUNT 20.8 K/uL (4.8-10.8)
[2017-04-13 07:14] LABS: ALT/SGPT 36 U/L (21-72); AST/SGOT 22 U/L (17-59); BLOOD UREA NITROGEN 26 mg/dL (9-20); GFR NON-AFRICAN AMERICAN > 60
[2017-04-13 07:15] LABS: CALCIUM 8.7 mg/dl (8.6-10.4)
[2017-04-13 07:19] LABS: ALBUMIN 3.7 g/dL (3.5-5.0)
[2017-04-13 07:29] LABS: ALB/GLOB RATIO 0.8 (1.0-2.1)
[2017-04-13 08:14] LABS: BANDS 7 % (0-2); LYMPHOCYTE 7 % (20-40); MONOCYTE 5 % (0-10); NEUTROPHIL 81 % (50-75); PLATELET ESTIMATE NORMAL (NORMAL); TOTAL CELLS COUNTED 100
[2017-04-13 08:16] LABS: LARGE PLATELETS PRESENT
[2017-04-13 08:17] LABS: TOXIC GRANULATION PRESENT
[2017-04-13 08:18] LABS: GIANT PLATELETS PRESENT; PLATELET CLUMPS PRESENT
[2017-04-13] MEDS: Saccharomyces Boulardi 250 mg Cap PO SCH ×3 (10:52→17:42)
[2017-04-13] MEDS: levETIRAcetam 100 mg/ml (5ml) Oral Syringe PO SCH ×2 (10:53→17:42)
--- NOTE | 2017-04-13 12:56 | CP.PCM.PN ---
<Tanya Campos - Last Filed: 04/13/17 12:54> Subjective - Date & Time of Evaluation Date of Evaluation: 04/13/17 Time of Evaluation: 10:00 - Subjective Subjective: Medicine note for Dr. Ying, Patient seen and examined at bedside. Blood cultures prelim no growth x 2 Urine culture +Proteus Sputum Culture Gram neg Patient has good UO Tolerating PEG feeds @ 40cc/hr PEG site clean/dry/intact Patient has nonspontaneous, non directed movements ROS unobtainable due to clinical condition Objective - Vital Signs/Intake and Output Vital Signs (last 24 hours): Temp Pulse Resp BP Pulse Ox 98.5 F 71 20 126/80 99 04/13/17 07:53 04/13/17 07:53 04/13/17 07:53 04/13/17 07:53 04/13/17 07:53 Intake and Output: 04/13/17 04/13/17 06:59 18:59 Intake Total 1140 Output Total 200 Balance 940 - Medications Medications: Current Medications Acetaminophen (Tylenol 650mg/20.3ml Solution Ud) 650 mg PEG Q6 PRN PRN Reason: Fever >100.4 F Last Admin: 04/07/17 02:45 Dose: 650 mg Acetylcysteine (Acetylcysteine 20%) 4 ml INH RQ6 [facility] Last Admin: 04/13/17 07:37 Dose: 4 ml Albuterol/Ipratropium (Duoneb 3 Mg/0.5 Mg (3 Ml) Ud) 3 ml INH RQ6 [facility] Last Admin: 04/13/17 07:37 Dose: 3 ml Aspirin (Aspirin Chewable) 81 mg PO DAILY [facility] Last Admin: 04/13/17 10:52 Dose: 81 mg Bethanechol Chloride (Urecholine) 50 mg PO TID [facility] Last Admin: 04/13/17 10:52 Dose: 50 mg Carvedilol (Coreg) 3.125 mg PEG BID [facility] Last Admin: 04/13/17 10:52 Dose: 3.125 mg Clopidogrel Bisulfate (Plavix) 75 mg PO DAILY [facility] Last Admin: 04/13/17 10:52 Dose: 75 mg Famotidine (Pepcid) 20 mg PEG BID [facility] Last Admin: 04/13/17 10:52 Dose: 20 mg Finasteride (Proscar) 5 mg PO DAILY [facility] Last Admin: 04/13/17 10:53 Dose: 5 mg Amikacin Sulfate 250 mg/ (Sodium Chloride) 101 mls @ 100 mls/hr IV Q12 [facility] Last Admin: 04/13/17 12:06 Dose: 100 mls/hr Levetiracetam (Keppra) 500 mg PO BID [facility] Last Admin: 04/13/17 10:53 Dose: 500 mg Methylprednisolone (Solu-Medrol) 40 mg IV Q8 [facility] Last Admin: 04/13/17 06:12 Dose: 40 mg Saccharomyces Boulardii (Florastor) 250 mg PO TID [facility] Last Admin: 04/13/17 10:52 Dose: 250 mg Tamsulosin HCl (Flomax) 0.4 mg PO DAILY [facility] Last Admin: 04/13/17 10:52 Dose: 0.4 mg - Labs Labs: 04/13/17 06:54 04/13/17 06:54 PT 10.6 SECONDS (9.7-12.2) 11/24/15 14:10 INR 1.0 11/24/15 14:10 APTT 25 SECONDS (21-34) 11/24/15 14:10 - Constitutional Appears: No Acute Distress - Head Exam Head Exam: NORMAL INSPECTION, NORMOCEPHALIC - Eye Exam Eye Exam: Normal appearance - ENT Exam ENT Exam: Mucous Membranes Moist Additional comments: Trach collar in place - Respiratory Exam Respiratory Exam: Clear to Ausculation Bilateral, NORMAL BREATHING PATTERN. absent: Decreased Breath Sounds, Wheezes - Cardiovascular Exam Cardiovascular Exam: REGULAR RHYTHM - GI/Abdominal Exam GI & Abdominal Exam: Soft, Normal Bowel Sounds. absent: Tenderness - Extremities Exam Extremities Exam: Normal Inspection. absent: Pedal Edema, Tenderness - Neurological Exam Neurological Exam: Awake - Skin Skin Exam: Dry, Intact, Normal Color, Warm Assessment and Plan - Assessment and Plan (Free Text) Assessment: 66 yo M with unknown pmhx who was found unresponsive in driveway s/p cardiac arrest and anoxic encephalopathy Plan: UTI + Proteus Mirabilis Amikacin 250mg IV Q12 blood cultures prelim no growth x 2 urine culture prelim Gram negative patsy Patient given 1gm 1 dose vancomycin 04/[address] [place] [address] Tylenol 650mg po q6 PEG for fever temp > 100.4F Urinary Retention Take note condom cath not always securely in place so Is and Os are approximates as patient wets bed Flomax 0.4mg PEG daily Proscar 5mg PEG daily continue Bethanecol 50mg PEG TID- started after persistent retention and found to be effective. monitor I's and O's Check bladder scan for residual urine three times weekly - F/U BLADDER SCAN TODAY Respiratory failure Trach in place, continue daily monitory for secretions. No change in management at this time. Continue with aggressive suctioning multiple times a day per respiratory therapist. Thick secretions Duoneb 3ml INH Q8 and Mucomist [address] Q8 [address]. Salgado reconsulted for possible mucous plug Started on Solumedrol 40mg IV Q8H Anoxic brain injury s/p cardiac arrest in 05/2015 no acute changes Pt has non spontaneous movements. continue current management. Continue tube feeds- 40cc/hr Florastor 250mg PO TID via PEG Sacral Ulcers- HEALED Cont with offloading/cushioning/turning Continue frequent turning, protective ointment and skin checks. Continue wound care CAD (coronary artery disease) s/p cardiac stents on 06/13/15 Cont ASA 81mg via PEG daily Cont Coreg 3.125mg PEG BID Cont Plavix 75mg PO daily Seizures Cont Keppra 500mg PEG BID for seizure prophylaxis Monitor for activity Lower extremity edema Improved Monitor Prophylactic measure Pepcid 20 mg PEG BID Lovenox 40mg SC daily SCDs and offloading boots continue to turn and reposition q2h Feeds @ 40cc/hr Continue to monitor medication administrations and clinical presentation weekly labs DW Beth Ruiz DO, PGY-1 <Donnell Ying M - Last Filed: 04/13/17 15:05> Objective - Vital Signs/Intake and Output Vital Signs (last 24 hours): Temp Pulse Resp BP Pulse Ox 98.5 F 71 20 126/80 99 04/13/17 07:53 04/13/17 07:53 04/13/17 07:53 04/13/17 07:53 04/13/17 07:53 Intake and Output: 04/13/17 04/13/17 06:59 18:59 Intake Total 1140 Output Total 200 Balance 940 - Medications Medications: Current Medications Acetaminophen (Tylenol 650mg/20.3ml Solution Ud) 650 mg PEG Q6 PRN PRN Reason: Fever >100.4 F Last Admin: 04/07/17 02:45 Dose: 650 mg Acetylcysteine (Acetylcysteine 20%) 4 ml INH RQ6 [facility] Last Admin: 04/13/17 13:47 Dose: 4 ml Albuterol/Ipratropium (Duoneb 3 Mg/0.5 Mg (3 Ml) Ud) 3 ml INH RQ6 [facility] Last Admin: 04/13/17 13:47 Dose: 3 ml Aspirin (Aspirin Chewable) 81 mg PO DAILY [facility] Last Admin: 04/13/17 10:52 Dose: 81 mg Bethanechol Chloride (Urecholine) 50 mg PO TID [facility] Last Admin: 04/13/17 13:12 Dose: 50 mg Carvedilol (Coreg) 3.125 mg PEG BID [facility] Last Admin: 04/13/17 10:52 Dose: 3.125 mg Clopidogrel Bisulfate (Plavix) 75 mg PO DAILY [facility] Last Admin: 04/13/17 10:52 Dose: 75 mg Famotidine (Pepcid) 20 mg PEG BID [facility] Last Admin: 04/13/17 10:52 Dose: 20 mg Finasteride (Proscar) 5 mg PO DAILY [facility] Last Admin: 04/13/17 10:53 Dose: 5 mg Amikacin Sulfate 250 mg/ (Sodium Chloride) 101 mls @ 100 mls/hr IV Q12 [facility] Last Admin: 04/13/17 12:06 Dose: 100 mls/hr Levetiracetam (Keppra) 500 mg PO BID [facility] Last Admin: 04/13/17 10:53 Dose: 500 mg Prednisone (Prednisone Tab) 20 mg PO Q8H [facility] Last Admin: 04/13/17 14:56 Dose: 20 mg Saccharomyces Boulardii (Florastor) 250 mg PO TID [facility] Last Admin: 04/13/17 13:12 Dose: 250 mg Tamsulosin HCl (Flomax) 0.4 mg PO DAILY [facility] Last Admin: 04/13/17 10:52 Dose: 0.4 mg - Labs Labs: 04/13/17 06:54 04/13/17 06:54 PT 10.6 SECONDS (9.7-12.2) 11/24/15 14:10 INR 1.0 11/24/15 14:10 APTT 25 SECONDS (21-34) 11/24/15 14:10 Attending/Attestation - Attestation I have personally seen and examined this patient.: Yes I have fully participated in the care of the patient.: Yes I have reviewed all pertinent clinical information, including history, physical exam and plan: Yes Notes (Text): 04/13/17 15:05 Patient was seen and examined at bedside. Leukocytosis noted. Possibly secondary to steroids. Continue IV antibiotics and steroids for now We'll start tapering the steroids. Respiratory status is stable. Discussed the plan of care with the resident and agree with the above history and physical and assessment/plan by the resident.
--- NOTE | 2017-04-13 16:26 | RAD ---
HISTORY: weezing COMPARISON: 04/10/2017 FINDINGS: LUNGS: No active pulmonary disease. PLEURA: No significant pleural effusion identified, no pneumothorax apparent. CARDIOVASCULAR: Normal heart size. Tracheostomy tube noted. OSSEOUS STRUCTURES: No significant abnormalities. VISUALIZED UPPER ABDOMEN: Normal. OTHER FINDINGS: None. IMPRESSION: No active disease.
[2017-04-13] MEDS: Meropenem 1 GM in Sodium Chloride 0.9% 100 ML IVPB SCH (17:41)
[2017-04-14] MEDS: Albuterol-Ipratrop 3 mg / 0.5 (3 ml) UD INH SCH ×4 (01:10→19:22)
[2017-04-14] MEDS: Acetylcysteine 20% Inhal Soln (4ml) INH SCH ×4 (01:10→19:22)
[2017-04-14] MEDS: Meropenem 1 GM in Sodium Chloride 0.9% 100 ML IVPB SCH ×3 (02:00→16:30)
[2017-04-14] MEDS: Saccharomyces Boulardi 250 mg Cap PO SCH ×3 (09:43→17:58)
[2017-04-14] MEDS: levETIRAcetam 100 mg/ml (5ml) Oral Syringe PO SCH ×2 (09:43→17:58)
--- NOTE | 2017-04-14 12:36 | CP.PCM.PN ---
<Tanya Campos - Last Filed: 04/14/17 12:33> Subjective - Date & Time of Evaluation Date of Evaluation: 04/14/17 Time of Evaluation: 10:00 - Subjective Subjective: Medicine note for Dr. Ying, Patient seen and examined at bedside. IV access regained - restarted IV ABX and solumedrol 40 Q12 Blood cultures prelim no growth x 2 Urine culture +Proteus Sputum Culture- + Proteus, Pseudo Patient has good UO Tolerating PEG feeds @ 40cc/hr PEG site clean/dry/intact Patient has nonspontaneous, non directed movements ROS unobtainable due to clinical condition Objective - Vital Signs/Intake and Output Vital Signs (last 24 hours): Temp Pulse Resp BP Pulse Ox 98.3 F 80 20 125/74 98 04/14/17 07:38 04/14/17 07:38 04/14/17 07:38 04/14/17 07:38 04/14/17 07:38 Intake and Output: 04/14/17 04/14/17 06:59 18:59 Intake Total 1290 Output Total 450 Balance 840 - Medications Medications: Current Medications Acetaminophen (Tylenol 650mg/20.3ml Solution Ud) 650 mg PEG Q6 PRN PRN Reason: Fever >100.4 F Last Admin: 04/07/17 02:45 Dose: 650 mg Acetylcysteine (Acetylcysteine 20%) 4 ml INH RQ6 [facility] Last Admin: 04/14/17 07:45 Dose: 4 ml Albuterol/Ipratropium (Duoneb 3 Mg/0.5 Mg (3 Ml) Ud) 3 ml INH RQ6 [facility] Last Admin: 04/14/17 07:45 Dose: 3 ml Aspirin (Aspirin Chewable) 81 mg PO DAILY [facility] Last Admin: 04/14/17 09:43 Dose: 81 mg Bethanechol Chloride (Urecholine) 50 mg PO TID [facility] Last Admin: 04/14/17 10:17 Dose: 50 mg Carvedilol (Coreg) 3.125 mg PEG BID [facility] Last Admin: 04/14/17 09:43 Dose: 3.125 mg Clopidogrel Bisulfate (Plavix) 75 mg PO DAILY [facility] Last Admin: 04/14/17 09:43 Dose: 75 mg Famotidine (Pepcid) 20 mg PEG BID [facility] Last Admin: 04/14/17 09:43 Dose: 20 mg Finasteride (Proscar) 5 mg PO DAILY [facility] Last Admin: 04/14/17 09:43 Dose: 5 mg Amikacin Sulfate 250 mg/ (Sodium Chloride) 101 mls @ 100 mls/hr IV Q12 [facility] Last Admin: 04/14/17 11:38 Dose: 100 mls/hr Meropenem 1 gm/ Sodium (Chloride) 100 mls @ 100 mls/hr IVPB Q8H [facility] Last Admin: 04/14/17 09:44 Dose: 100 mls/hr Levetiracetam (Keppra) 500 mg PO BID [facility] Last Admin: 04/14/17 09:43 Dose: 500 mg Methylprednisolone (Solu-Medrol) 40 mg IVP Q12 [facility] Saccharomyces Boulardii (Florastor) 250 mg PO TID [facility] Last Admin: 04/14/17 09:43 Dose: 250 mg Tamsulosin HCl (Flomax) 0.4 mg PO DAILY [facility] Last Admin: 04/14/17 09:43 Dose: 0.4 mg - Labs Labs: 04/13/17 06:54 04/13/17 06:54 PT 10.6 SECONDS (9.7-12.2) 11/24/15 14:10 INR 1.0 11/24/15 14:10 APTT 25 SECONDS (21-34) 11/24/15 14:10 - Constitutional Appears: No Acute Distress, Chronically Ill - Head Exam Head Exam: NORMAL INSPECTION, NORMOCEPHALIC - Neck Exam Additional comments: Trach collar in place - Respiratory Exam Respiratory Exam: Clear to Ausculation Bilateral, NORMAL BREATHING PATTERN - Cardiovascular Exam Cardiovascular Exam: REGULAR RHYTHM, RRR - GI/Abdominal Exam GI & Abdominal Exam: Soft, Normal Bowel Sounds. absent: Distended, Tenderness - Extremities Exam Extremities Exam: Normal Inspection. absent: Pedal Edema, Tenderness - Neurological Exam Neurological Exam: Awake - Skin Skin Exam: Dry, Intact, Normal Color, Warm Assessment and Plan - Assessment and Plan (Free Text) Assessment: 66 yo M with unknown pmhx who was found unresponsive in driveway s/p cardiac arrest and anoxic encephalopathy Plan: UTI + Proteus Mirabilis Amikacin 250mg IV Q12 blood cultures prelim no growth x 2 urine culture prelim Gram negative patsy Patient given 1gm 1 dose vancomycin 04/[address] [place] [address] Tylenol 650mg po q6 PEG for fever temp > 100.4F Urinary Retention Take note condom cath not always securely in place so Is and Os are approximates as patient wets bed Flomax 0.4mg PEG daily Proscar 5mg PEG daily continue Bethanecol 50mg PEG TID- started after persistent retention and found to be effective. monitor I's and O's Check bladder scan for residual urine three times weekly - F/U BLADDER SCAN Thursday (previous was Thursday 160) Respiratory failure Trach in place, continue daily monitory for secretions. No change in management at this time. Continue with aggressive suctioning multiple times a day per respiratory therapist. Thick secretions Duoneb 3ml INH Q8 and Mucomist 4ml [address]H Q8 Dr. Salgado reconsulted for possible mucous plug Started on Solumedrol 40mg IV Q12H Anoxic brain injury s/p cardiac arrest in 05/2015 no acute changes Pt has non spontaneous movements. continue current management. Continue tube feeds- 40cc/hr Florastor 250mg PO TID via PEG Sacral Ulcers- HEALED Cont with offloading/cushioning/turning Continue frequent turning, protective ointment and skin checks. Continue wound care CAD (coronary artery disease) s/p cardiac stents on 06/13/15 Cont ASA 81mg via PEG daily Cont Coreg 3.125mg PEG BID Cont Plavix 75mg PO daily Seizures Cont Keppra 500mg PEG BID for seizure prophylaxis Monitor for activity Lower extremity edema Improved Monitor Prophylactic measure Pepcid 20 mg PEG BID Lovenox 40mg SC daily SCDs and offloading boots continue to turn and reposition q2h Feeds @ 40cc/hr Continue to monitor medication administrations and clinical presentation weekly labs DW Beth Ruiz DO, PGY-1 <Donnell Ying M - Last Filed: 04/14/17 16:59> Objective - Vital Signs/Intake and Output Vital Signs (last 24 hours): Temp Pulse Resp BP Pulse Ox 98.5 F 68 20 120/75 100 04/14/17 15:02 04/14/17 15:02 04/14/17 15:02 04/14/17 15:02 04/14/17 15:02 Intake and Output: 04/14/17 04/14/17 06:59 18:59 Intake Total 2009 Output Total 750 Balance 1260 - Medications Medications: Current Medications Acetaminophen (Tylenol 650mg/20.3ml Solution Ud) 650 mg PEG Q6 PRN PRN Reason: Fever >100.4 F Last Admin: 04/07/17 02:45 Dose: 650 mg Acetylcysteine (Acetylcysteine 20%) 4 ml INH RQ6 [facility] Last Admin: 04/14/17 13:36 Dose: 4 ml Albuterol/Ipratropium (Duoneb 3 Mg/0.5 Mg (3 Ml) Ud) 3 ml INH RQ6 [facility] Last Admin: 04/14/17 13:37 Dose: 3 ml Aspirin (Aspirin Chewable) 81 mg PO DAILY [facility] Last Admin: 04/14/17 09:43 Dose: 81 mg Bethanechol Chloride (Urecholine) 50 mg PO TID [facility] Last Admin: 04/14/17 14:55 Dose: 50 mg Carvedilol (Coreg) 3.125 mg PEG BID [facility] Last Admin: 04/14/17 09:43 Dose: 3.125 mg Clopidogrel Bisulfate (Plavix) 75 mg PO DAILY [facility] Last Admin: 04/14/17 09:43 Dose: 75 mg Famotidine (Pepcid) 20 mg PEG BID [facility] Last Admin: 04/14/17 09:43 Dose: 20 mg Finasteride (Proscar) 5 mg PO DAILY [facility] Last Admin: 04/14/17 09:43 Dose: 5 mg Amikacin Sulfate 250 mg/ (Sodium Chloride) 101 mls @ 100 mls/hr IV Q12 [facility] Last Admin: 04/14/17 11:38 Dose: 100 mls/hr Meropenem 1 gm/ Sodium (Chloride) 100 mls @ 100 mls/hr IVPB Q8H [facility] Last Admin: 04/14/17 09:44 Dose: 100 mls/hr Levetiracetam (Keppra) 500 mg PO BID [facility] Last Admin: 04/14/17 09:43 Dose: 500 mg Methylprednisolone (Solu-Medrol) 40 mg IVP Q12 [facility] Saccharomyces Boulardii (Florastor) 250 mg PO TID [facility] Last Admin: 04/14/17 15:01 Dose: 250 mg Tamsulosin HCl (Flomax) 0.4 mg PO DAILY [facility] Last Admin: 04/14/17 09:43 Dose: 0.4 mg - Labs Labs: 04/13/17 06:54 04/13/17 06:54 PT 10.6 SECONDS (9.7-12.2) 11/24/15 14:10 INR 1.0 11/24/15 14:10 APTT 25 SECONDS (21-34) 11/24/15 14:10 Attending/Attestation - Attestation I have personally seen and examined this patient.: Yes I have fully participated in the care of the patient.: Yes I have reviewed all pertinent clinical information, including history, physical exam and plan: Yes Notes (Text): 04/14/17 16:58 Patient was seen and examined at bedside with the resident. Continue IV antibiotics and IV steroids Respiratory status is stable I discussed the plan of care with the resident and agree with the above history and physical and assessment/plan by the resident.
[2017-04-14] MEDS: MethylPREDNISolone 40 mg Vial IVP SCH (22:15)
[2017-04-15] MEDS: Meropenem 1 GM in Sodium Chloride 0.9% 100 ML IVPB SCH ×3 (01:17→18:03)
[2017-04-15] MEDS: Albuterol-Ipratrop 3 mg / 0.5 (3 ml) UD INH SCH ×4 (01:49→19:48)
[2017-04-15] MEDS: Acetylcysteine 20% Inhal Soln (4ml) INH SCH ×3 (08:03→19:48)
[2017-04-15] MEDS: levETIRAcetam 100 mg/ml (5ml) Oral Syringe PO SCH ×2 (09:52→18:05)
[2017-04-15] MEDS: Saccharomyces Boulardi 250 mg Cap PO SCH ×3 (09:55→18:05)
--- NOTE | 2017-04-15 12:24 | CP.PCM.PN ---
<Tanya Campos - Last Filed: 04/15/17 12:21> Subjective - Date & Time of Evaluation Date of Evaluation: 04/15/17 Time of Evaluation: 10:00 - Subjective Subjective: Medicine note for Dr. Ying, Patient seen and examined at bedside. IV access lost - consent received for PICC line; once line in place to resume Amikacin, Meropenem, and IV solumedrol Blood cultures prelim no growth x 2 Urine culture +Proteus Sputum Culture- + Proteus, Pseudo Patient has good UO Tolerating PEG feeds @ 40cc/hr PEG site clean/dry/intact Patient has nonspontaneous, non directed movements ROS unobtainable due to clinical condition Objective - Vital Signs/Intake and Output Vital Signs (last 24 hours): Temp Pulse Resp BP Pulse Ox 98.5 F 78 20 115/75 97 04/15/17 08:00 04/15/17 08:00 04/15/17 08:00 04/15/17 08:00 04/15/17 08:00 Intake and Output: 04/15/17 04/15/17 06:59 18:59 Intake Total 1040 Output Total 400 Balance 640 - Medications Medications: Current Medications Acetaminophen (Tylenol 650mg/20.3ml Solution Ud) 650 mg PEG Q6 PRN PRN Reason: Fever >100.4 F Last Admin: 04/07/17 02:45 Dose: 650 mg Acetylcysteine (Acetylcysteine 20%) 4 ml INH RQ6 [facility] Last Admin: 04/15/17 08:03 Dose: 4 ml Albuterol/Ipratropium (Duoneb 3 Mg/0.5 Mg (3 Ml) Ud) 3 ml INH RQ6 [facility] Last Admin: 04/15/17 08:03 Dose: 3 ml Aspirin (Aspirin Chewable) 81 mg PO DAILY [facility] Last Admin: 04/15/17 09:51 Dose: 81 mg Bethanechol Chloride (Urecholine) 50 mg PO TID [facility] Last Admin: 04/15/17 10:11 Dose: 50 mg Carvedilol (Coreg) 3.125 mg PEG BID [facility] Last Admin: 04/15/17 09:51 Dose: 3.125 mg Clopidogrel Bisulfate (Plavix) 75 mg PO DAILY [facility] Last Admin: 04/15/17 09:51 Dose: 75 mg Famotidine (Pepcid) 20 mg PEG BID [facility] Last Admin: 04/15/17 09:51 Dose: 20 mg Finasteride (Proscar) 5 mg PO DAILY [facility] Last Admin: 04/15/17 09:53 Dose: 5 mg Amikacin Sulfate 250 mg/ (Sodium Chloride) 101 mls @ 100 mls/hr IV Q12 [facility] Last Admin: 04/15/17 11:28 Dose: Not Given Meropenem 1 gm/ Sodium (Chloride) 100 mls @ 100 mls/hr IVPB Q8H [facility] Last Admin: 04/15/17 01:17 Dose: Not Given Levetiracetam (Keppra) 500 mg PO BID [facility] Last Admin: 04/15/17 09:52 Dose: 500 mg Methylprednisolone (Solu-Medrol) 40 mg IVP Q12 [facility] Last Admin: 04/14/17 22:15 Dose: Not Given Prednisone (Prednisone Tab) 20 mg PO Q12 [facility] Last Admin: 04/15/17 09:57 Dose: 20 mg Saccharomyces Boulardii (Florastor) 250 mg PO TID [facility] Last Admin: 04/15/17 09:55 Dose: 250 mg Tamsulosin HCl (Flomax) 0.4 mg PO DAILY [facility] Last Admin: 04/15/17 09:55 Dose: 0.4 mg - Labs Labs: 04/13/17 06:54 04/13/17 06:54 PT 10.6 SECONDS (9.7-12.2) 11/24/15 14:10 INR 1.0 11/24/15 14:10 APTT 25 SECONDS (21-34) 11/24/15 14:10 - Constitutional Appears: No Acute Distress - Head Exam Head Exam: NORMAL INSPECTION, NORMOCEPHALIC - Neck Exam Additional comments: Trach collar in place - Respiratory Exam Respiratory Exam: Clear to Ausculation Bilateral, NORMAL BREATHING PATTERN - Cardiovascular Exam Cardiovascular Exam: REGULAR RHYTHM, RRR, +S1, +S2 - GI/Abdominal Exam GI & Abdominal Exam: Soft, Normal Bowel Sounds. absent: Distended, Tenderness - Neurological Exam Neurological Exam: Awake - Skin Skin Exam: Dry, Intact, Normal Color, Warm Assessment and Plan - Assessment and Plan (Free Text) Plan: UTI + Proteus Mirabilis Amikacin 250mg IV Q12 (04/08), Meropenem (04/13), PICC LINE ACCESS blood cultures prelim no growth x 2 urine culture prelim Gram negative patsy Patient given 1gm 1 dose vancomycin 04/06 [place] catheter in place Tylenol 650mg po q6 PEG for fever temp > 100.4F Urinary Retention Take note condom cath not always securely in place so Is and Os are approximates as patient wets bed Flomax 0.4mg PEG daily Proscar 5mg PEG daily continue Bethanecol 50mg PEG TID- started after persistent retention and found to be effective. monitor I's and O's Check bladder scan for residual urine three times weekly - F/U BLADDER SCAN ( previous was Thursday 160) Respiratory failure Trach in place, continue daily monitory for secretions. No change in management at this time. Continue with aggressive suctioning multiple times a day per respiratory therapist. Thick secretions Duoneb 3ml INH Q8 and Mucomist [address]ml [address] Q8 [address]. Salgado reconsulted for possible mucous plug Started on Solumedrol 40mg IV Q12H Anoxic brain injury s/p cardiac arrest in 05/2015 no acute changes Pt has non spontaneous movements. continue current management. Continue tube feeds- 40cc/hr Florastor 250mg PO TID via PEG Sacral Ulcers- HEALED Cont with offloading/cushioning/turning Continue frequent turning, protective ointment and skin checks. Continue wound care CAD (coronary artery disease) s/p cardiac stents on 06/13/15 Cont ASA 81mg via PEG daily Cont Coreg 3.125mg PEG BID Cont Plavix 75mg PO daily Seizures Cont Keppra 500mg PEG BID for seizure prophylaxis Monitor for activity Lower extremity edema Improved Monitor Prophylactic measure Pepcid 20 mg PEG BID Lovenox 40mg SC daily SCDs and offloading boots continue to turn and reposition q2h Feeds @ 40cc/hr Continue to monitor medication administrations and clinical presentation weekly labs DW Beth Ruiz DO, PGY-1 <Donnell Ying - Last Filed: 04/15/17 14:52> Objective - Vital Signs/Intake and Output Vital Signs (last 24 hours): Temp Pulse Resp BP Pulse Ox 98.5 F 78 20 115/75 97 04/15/17 08:00 04/15/17 08:00 04/15/17 08:00 04/15/17 08:00 04/15/17 08:00 Intake and Output: 04/15/17 04/15/17 06:59 18:59 Intake Total 1040 720 Output Total 400 850 Balance 640 -130 - Medications Medications: Current Medications Acetaminophen (Tylenol 650mg/20.3ml Solution Ud) 650 mg PEG Q6 PRN PRN Reason: Fever >100.4 F Last Admin: 04/07/17 02:45 Dose: 650 mg Acetylcysteine (Acetylcysteine 20%) 4 ml INH RQ6 [facility] Last Admin: 04/15/17 13:38 Dose: 4 ml Albuterol/Ipratropium (Duoneb 3 Mg/0.5 Mg (3 Ml) Ud) 3 ml INH RQ6 [facility] Last Admin: 04/15/17 13:38 Dose: 3 ml Aspirin (Aspirin Chewable) 81 mg PO DAILY [facility] Last Admin: 04/15/17 09:51 Dose: 81 mg Bethanechol Chloride (Urecholine) 50 mg PO TID [facility] Last Admin: 04/15/17 13:36 Dose: 50 mg Carvedilol (Coreg) 3.125 mg PEG BID [facility] Last Admin: 04/15/17 09:51 Dose: 3.125 mg Clopidogrel Bisulfate (Plavix) 75 mg PO DAILY [facility] Last Admin: 04/15/17 09:51 Dose: 75 mg Famotidine (Pepcid) 20 mg PEG BID [facility] Last Admin: 04/15/17 09:51 Dose: 20 mg Finasteride (Proscar) 5 mg PO DAILY [facility] Last Admin: 04/15/17 09:53 Dose: 5 mg Amikacin Sulfate 250 mg/ (Sodium Chloride) 101 mls @ 100 mls/hr IV Q12 [facility] Last Admin: 04/15/17 11:28 Dose: Not Given Meropenem 1 gm/ Sodium (Chloride) 100 mls @ 100 mls/hr IVPB Q8H [facility] Last Admin: 04/15/17 13:37 Dose: Not Given Levetiracetam (Keppra) 500 mg PO BID [facility] Last Admin: 04/15/17 09:52 Dose: 500 mg Methylprednisolone (Solu-Medrol) 40 mg IVP Q12 [facility] Last Admin: 04/14/17 22:15 Dose: Not Given Prednisone (Prednisone Tab) 20 mg PO Q12 [facility] Last Admin: 04/15/17 09:57 Dose: 20 mg Saccharomyces Boulardii (Florastor) 250 mg PO TID [facility] Last Admin: 04/15/17 13:36 Dose: 250 mg Tamsulosin HCl (Flomax) 0.4 mg PO DAILY [facility] Last Admin: 04/15/17 09:55 Dose: 0.4 mg - Labs Labs: 04/13/17 06:54 04/13/17 06:54 PT 10.6 SECONDS (9.7-12.2) 11/24/15 14:10 INR 1.0 11/24/15 14:10 APTT 25 SECONDS (21-34) 11/24/15 14:10 Attending/Attestation - Attestation I have personally seen and examined this patient.: Yes I have fully participated in the care of the patient.: Yes I have reviewed all pertinent clinical information, including history, physical exam and plan: Yes Notes (Text): 04/15/17 14:52 Patient was seen and examined at bedside with the resident He will need a PICC line for IV access We will continue IV antibiotics and IV steroids I discussed the plan of care with the resident and agree with the above history and physical and assessment/plan by the resident.
--- NOTE | 2017-04-15 15:35 | RAD ---
PROCEDURE: CHEST RADIOGRAPH, 1 VIEW HISTORY: verify right PICC COMPARISON: 04/13/2017 FINDINGS: LUNGS: Clear. PLEURA: No pneumothorax or pleural fluid seen. CARDIOVASCULAR: Tracheostomy tube again noted. New right PICC catheter terminating in the region of the superior vena cava. OSSEOUS STRUCTURES: No significant abnormalities. VISUALIZED UPPER ABDOMEN: Normal. OTHER FINDINGS: None. IMPRESSION: New right PICC catheter terminating in the region of the superior vena cava. No acute infiltrate
[2017-04-15] MEDS: MethylPREDNISolone 40 mg Vial IVP SCH (22:25)
[2017-04-16] MEDS: Meropenem 1 GM in Sodium Chloride 0.9% 100 ML IVPB SCH ×2 (01:22→17:58)
[2017-04-16] MEDS: Albuterol-Ipratrop 3 mg / 0.5 (3 ml) UD INH SCH ×4 (01:45→20:40)
[2017-04-16] MEDS: Acetylcysteine 20% Inhal Soln (4ml) INH SCH ×4 (01:45→20:40)
[2017-04-16] MEDS: Saccharomyces Boulardi 250 mg Cap PO SCH ×2 (11:07→17:53)
--- NOTE | 2017-04-16 15:22 | CP.PCM.PN ---
<Tanya Campos - Last Filed: 04/16/17 15:20> Subjective - Date & Time of Evaluation Date of Evaluation: 04/16/17 Time of Evaluation: 10:00 - Subjective Subjective: Medicine note for Dr. Ying, Patient seen and examined at bedside. IV access lost - consent received for PICC line; Restarted Amikacin, Meropenem, and IV solumedrol Blood cultures prelim no growth x 2 Urine culture +Proteus Sputum Culture- + Proteus, Pseudo Patient has good UO Tolerating PEG feeds @ 40cc/hr PEG site clean/dry/intact Patient has nonspontaneous, non directed movements ROS unobtainable due to clinical condition Objective - Vital Signs/Intake and Output Vital Signs (last 24 hours): Temp Pulse Resp BP Pulse Ox 97.7 F 85 20 101/72 98 04/16/17 07:58 04/16/17 07:58 04/16/17 07:58 04/16/17 07:58 04/16/17 07:58 Intake and Output: 04/16/17 04/16/17 06:59 18:59 Intake Total 1540 Output Total 1000 Balance 540 - Medications Medications: Current Medications Acetaminophen (Tylenol 650mg/20.3ml Solution Ud) 650 mg PEG Q6 PRN PRN Reason: Fever >100.4 F Last Admin: 04/07/17 02:45 Dose: 650 mg Acetylcysteine (Acetylcysteine 20%) 4 ml INH RQ6 [facility] [place] Last Admin: 04/16/17 07:38 Dose: 4 ml Albuterol/Ipratropium (Duoneb 3 Mg/0.5 Mg (3 Ml) Ud) 3 ml INH RQ6 [facility] [place] Last Admin: 04/16/17 07:38 Dose: 3 ml Aspirin (Aspirin Chewable) 81 mg PO DAILY [facility] [place] Last Admin: 04/15/17 09:51 Dose: 81 mg Bethanechol Chloride (Urecholine) 50 mg PO TID [facility] [place] Last Admin: 04/16/17 11:07 Dose: 50 mg Carvedilol (Coreg) 3.125 mg PEG BID [facility] [place] Last Admin: 04/16/17 11:06 Dose: 3.125 mg Clopidogrel Bisulfate (Plavix) 75 mg PO DAILY [facility] [place] Last Admin: 04/15/17 09:51 Dose: 75 mg Famotidine (Pepcid) 20 mg PEG BID [facility] [place] Last Admin: 04/16/17 11:07 Dose: 20 mg Finasteride (Proscar) 5 mg PO DAILY [facility] [place] Last Admin: 04/16/17 11:08 Dose: 5 mg Amikacin Sulfate 250 mg/ (Sodium Chloride) 101 mls @ 100 mls/hr IV Q12 [facility] [place] Last Admin: 04/15/17 22:00 Dose: 100 mls/hr Meropenem 1 gm/ Sodium (Chloride) 100 mls @ 100 mls/hr IVPB Q8H [facility] [place] Last Admin: 04/16/17 01:22 Dose: 100 mls/hr Levetiracetam (Keppra) 500 mg PO BID [facility] [place] Last Admin: 04/15/17 18:05 Dose: 500 mg Methylprednisolone (Solu-Medrol) 40 mg IVP Q12 [facility] [place] Last Admin: 04/15/17 22:25 Dose: 40 mg Saccharomyces Boulardii (Florastor) 250 mg PO TID [facility] [place] Last Admin: 04/16/17 11:07 Dose: 250 mg Tamsulosin HCl (Flomax) 0.4 mg PO DAILY [facility] [place] Last Admin: 04/16/17 11:07 Dose: 0.4 mg - Labs Labs: 04/13/17 06:54 04/13/17 06:54 PT 10.6 SECONDS (9.7-12.2) 11/24/15 14:10 INR 1.0 11/24/15 14:10 APTT 25 SECONDS (21-34) 11/24/15 14:10 - Constitutional Appears: No Acute Distress - Head Exam Head Exam: NORMAL INSPECTION, NORMOCEPHALIC - Neck Exam Additional comments: Trach collar in place - Respiratory Exam Respiratory Exam: Clear to Ausculation Bilateral, NORMAL BREATHING PATTERN. absent: Decreased Breath Sounds, Wheezes - Cardiovascular Exam Cardiovascular Exam: REGULAR RHYTHM, RRR, +S1, +S2 - GI/Abdominal Exam GI & Abdominal Exam: Soft, Normal Bowel Sounds. absent: Distended, Tenderness - Extremities Exam Extremities Exam: Normal Inspection. absent: Pedal Edema, Tenderness - Neurological Exam Neurological Exam: Awake - Skin Skin Exam: Dry, Intact, Normal Color, Warm. absent: Rash Assessment and Plan - Assessment and Plan (Free Text) Plan: UTI + Proteus Mirabilis Amikacin 250mg IV Q12 (04/08), Meropenem (04/13) blood cultures prelim no growth x 2 urine culture prelim Gram negative patsy Patient given 1gm 1 dose vancomycin 04/[address] [place] [address] Tylenol 650mg po q6 PEG for fever temp > 100.4F Urinary Retention Take note condom cath not always securely in place so Is and Os are approximates as patient wets bed Flomax 0.4mg PEG daily Proscar 5mg PEG daily continue Bethanecol 50mg PEG TID- started after persistent retention and found to be effective. monitor I's and O's Check bladder scan for residual urine three times weekly Respiratory failure Trach in place, continue daily monitory for secretions. No change in management at this time. Continue with aggressive suctioning multiple times a day per respiratory therapist. Thick secretions Duoneb 3ml INH Q8 and Mucomist 4ml [address]H Q8 Dr. Salgado reconsulted for possible mucous plug Started on Solumedrol 40mg IV Q12H Anoxic brain injury s/p cardiac arrest in 05/2015 no acute changes Pt has non spontaneous movements. continue current management. Continue tube feeds- 40cc/hr Florastor 250mg PO TID via PEG Sacral Ulcers- HEALED Cont with offloading/cushioning/turning Continue frequent turning, protective ointment and skin checks. Continue wound care CAD (coronary artery disease) s/p cardiac stents on 06/13/15 Cont ASA 81mg via PEG daily Cont Coreg 3.125mg PEG BID Cont Plavix 75mg PO daily Seizures Cont Keppra 500mg PEG BID for seizure prophylaxis Monitor for activity Lower extremity edema Improved Monitor Prophylactic measure Pepcid 20 mg PEG BID Lovenox 40mg SC daily SCDs and offloading boots continue to turn and reposition q2h Feeds @ 40cc/hr Continue to monitor medication administrations and clinical presentation weekly labs DW Beth Ruiz DO, PGY-1 <Donnell Ying M - Last Filed: 04/16/17 17:28> Objective - Vital Signs/Intake and Output Vital Signs (last 24 hours): Temp Pulse Resp BP Pulse Ox 97.6 F 87 22 107/75 97 04/16/17 16:00 04/16/17 16:00 04/16/17 16:00 04/16/17 16:00 04/16/17 16:00 Intake and Output: 04/16/17 04/16/17 06:59 18:59 Intake Total 1540 Output Total 1000 700 Balance 540 -700 - Medications Medications: Current Medications Acetaminophen (Tylenol 650mg/20.3ml Solution Ud) 650 mg PEG Q6 PRN PRN Reason: Fever >100.4 F Last Admin: 04/07/17 02:45 Dose: 650 mg Acetylcysteine (Acetylcysteine 20%) 4 ml INH RQ6 [facility] [place] Last Admin: 04/16/17 07:38 Dose: 4 ml Albuterol/Ipratropium (Duoneb 3 Mg/0.5 Mg (3 Ml) Ud) 3 ml INH RQ6 [facility] [place] Last Admin: 04/16/17 07:38 Dose: 3 ml Aspirin (Aspirin Chewable) 81 mg PO DAILY [facility] [place] Last Admin: 04/15/17 09:51 Dose: 81 mg Bethanechol Chloride (Urecholine) 50 mg PO TID [facility] [place] Last Admin: 04/16/17 11:07 Dose: 50 mg Carvedilol (Coreg) 3.125 mg PEG BID [facility] [place] Last Admin: 04/16/17 11:06 Dose: 3.125 mg Clopidogrel Bisulfate (Plavix) 75 mg PO DAILY [facility] [place] Last Admin: 04/15/17 09:51 Dose: 75 mg Famotidine (Pepcid) 20 mg PEG BID [facility] [place] Last Admin: 04/16/17 11:07 Dose: 20 mg Finasteride (Proscar) 5 mg PO DAILY [facility] [place] Last Admin: 04/16/17 11:08 Dose: 5 mg Amikacin Sulfate 250 mg/ (Sodium Chloride) 101 mls @ 100 mls/hr IV Q12 [facility] [place] Last Admin: 04/15/17 22:00 Dose: 100 mls/hr Meropenem 1 gm/ Sodium (Chloride) 100 mls @ 100 mls/hr IVPB Q8H [facility] [place] Last Admin: 04/16/17 01:22 Dose: 100 mls/hr Levetiracetam (Keppra) 500 mg PO BID [facility] [place] Last Admin: 04/15/17 18:05 Dose: 500 mg Methylprednisolone (Solu-Medrol) 40 mg IVP Q12 [facility] [place] Last Admin: 04/15/17 22:25 Dose: 40 mg Saccharomyces Boulardii (Florastor) 250 mg PO TID [facility] [place] Last Admin: 04/16/17 11:07 Dose: 250 mg Tamsulosin HCl (Flomax) 0.4 mg PO DAILY [facility] Last Admin: 04/16/17 11:07 Dose: 0.4 mg - Labs Labs: 04/13/17 06:54 04/13/17 06:54 PT 10.6 SECONDS (9.7-12.2) 11/24/15 14:10 INR 1.0 11/24/15 14:10 APTT 25 SECONDS (21-34) 11/24/15 14:10 Attending/Attestation - Attestation I have personally seen and examined this patient.: Yes I have fully participated in the care of the patient.: Yes I have reviewed all pertinent clinical information, including history, physical exam and plan: Yes Notes (Text): 04/16/17 17:27 Patient was seen and examined at bedside with the resident We will continue IV and to Biaxin IV steroids We will taper steroids I discussed the plan of care with the resident and I agree with the above history and physical and assessment/plan by the resident.
--- NOTE | 2017-04-16 15:25 | PCM.RRTMUL ---
[employer] Nurses Assessment - Situation [employer] Responder Arrival Time:: 14:00 New IV Insertion Tolerance:: Excellent - Ventilator Settings SAO2 %:: 98 - Vital Signs Blood Pressure:: 101/72 Pulse Rate:: 85 Respiratory Rate:: 20 Temperature:: 97.7 F
[2017-04-16] MEDS: levETIRAcetam 100 mg/ml (5ml) Oral Syringe PO SCH (18:28)
[2017-04-16] MEDS: MethylPREDNISolone 40 mg Vial IVP SCH (21:09)
[2017-04-17] MEDS: Albuterol-Ipratrop 3 mg / 0.5 (3 ml) UD INH SCH ×4 (01:19→19:03)
[2017-04-17] MEDS: Acetylcysteine 20% Inhal Soln (4ml) INH SCH ×4 (01:19→19:03)
[2017-04-17] MEDS: Meropenem 1 GM in Sodium Chloride 0.9% 100 ML IVPB SCH ×3 (02:45→18:20)
--- NOTE | 2017-04-17 07:25 | CP.PCM.PN ---
Addendum entered and electronically signed by Tanya Campos DO 04/17/17 14:40 : Solumedrol changed to 20mg IVP Q12H. patient received 40mg IVP today. Original Note: <Tanya Campos - Last Filed: 04/17/17 07:23> Subjective - Date & Time of Evaluation Date of Evaluation: 04/17/17 Time of Evaluation: 07:00 - Subjective Subjective: Medicine note for Dr. Ying, Patient seen and examined at bedside. IV access lost - consent received for PICC line; Restarted Amikacin, Meropenem, and IV solumedrol Urine culture +Proteus Sputum Culture- + Proteus, Pseudo Blood cultures prelim no growth x 2 Patient has good UO Tolerating PEG feeds @ 40cc/hr PEG site clean/dry/intact Patient has nonspontaneous, non directed movements ROS unobtainable due to clinical condition Objective - Vital Signs/Intake and Output Vital Signs (last 24 hours): Temp Pulse Resp BP Pulse Ox 97.7 F 63 20 121/82 97 04/16/17 23:41 04/16/17 23:41 04/16/17 23:41 04/16/17 23:41 04/16/17 23:41 Intake and Output: 04/17/17 04/17/17 06:59 18:59 Intake Total 1490 Output Total 550 Balance 940 - Medications Medications: Current Medications Acetaminophen (Tylenol 650mg/20.3ml Solution Ud) 650 mg PEG Q6 PRN PRN Reason: Fever >100.4 F Last Admin: 04/07/17 02:45 Dose: 650 mg Acetylcysteine (Acetylcysteine 20%) 4 ml INH RQ6 [facility] Last Admin: 04/17/17 01:19 Dose: 4 ml Albuterol/Ipratropium (Duoneb 3 Mg/0.5 Mg (3 Ml) Ud) 3 ml INH RQ6 [facility] Last Admin: 04/17/17 01:19 Dose: 3 ml Aspirin (Aspirin Chewable) 81 mg PO DAILY [facility] Last Admin: 04/15/17 09:51 Dose: 81 mg Bethanechol Chloride (Urecholine) 50 mg PO TID [facility] Last Admin: 04/16/17 17:55 Dose: 50 mg Carvedilol (Coreg) 3.125 mg PEG BID [facility] Last Admin: 04/16/17 17:52 Dose: 3.125 mg Clopidogrel Bisulfate (Plavix) 75 mg PO DAILY [facility] Last Admin: 04/15/17 09:51 Dose: 75 mg Famotidine (Pepcid) 20 mg PEG BID [facility] Last Admin: 04/16/17 17:54 Dose: 20 mg Finasteride (Proscar) 5 mg PO DAILY [facility] Last Admin: 04/16/17 11:08 Dose: 5 mg Amikacin Sulfate 250 mg/ (Sodium Chloride) 101 mls @ 100 mls/hr IV Q12 [facility] Last Admin: 04/16/17 21:08 Dose: 100 mls/hr Meropenem 1 gm/ Sodium (Chloride) 100 mls @ 100 mls/hr IVPB Q8H [facility] Last Admin: 04/17/17 02:45 Dose: 100 mls/hr Levetiracetam (Keppra) 500 mg PO BID [facility] Last Admin: 04/16/17 18:28 Dose: 500 mg Methylprednisolone (Solu-Medrol) 40 mg IVP Q12 [facility] Last Admin: 04/16/17 21:09 Dose: 40 mg Saccharomyces Boulardii (Florastor) 250 mg PO TID [facility] Last Admin: 04/16/17 17:53 Dose: 250 mg Tamsulosin HCl (Flomax) 0.4 mg PO DAILY [facility] Last Admin: 04/16/17 11:07 Dose: 0.4 mg - Labs Labs: 04/13/17 06:54 04/13/17 06:54 PT 10.6 SECONDS (9.7-12.2) 11/24/15 14:10 INR 1.0 11/24/15 14:10 APTT 25 SECONDS (21-34) 11/24/15 14:10 - Constitutional Appears: No Acute Distress - Head Exam Head Exam: NORMAL INSPECTION, NORMOCEPHALIC - Neck Exam Additional comments: Trach collar in place - Respiratory Exam Respiratory Exam: NORMAL BREATHING PATTERN - Cardiovascular Exam Cardiovascular Exam: REGULAR RHYTHM - GI/Abdominal Exam GI & Abdominal Exam: Soft, Normal Bowel Sounds. absent: Distended, Tenderness - Extremities Exam Extremities Exam: Normal Inspection. absent: Pedal Edema, Tenderness - Neurological Exam Neurological Exam: Awake - Skin Skin Exam: Dry, Intact, Normal Color, Warm Assessment and Plan - Assessment and Plan (Free Text) Plan: UTI + Proteus Mirabilis Amikacin 250mg IV Q12 (04/08), Meropenem (04/13) blood cultures prelim no growth x 2 urine culture prelim Gram negative patsy Patient given 1gm 1 dose vancomycin 04/[address] [place] [address] Tylenol 650mg po q6 PEG for fever temp > 100.4F Urinary Retention Take note condom cath not always securely in place so Is and Os are approximates as patient wets bed Flomax 0.4mg PEG daily Proscar 5mg PEG daily continue Bethanecol 50mg PEG TID- started after persistent retention and found to be effective. monitor I's and O's Check bladder scan for residual urine three times weekly Respiratory failure Trach in place, continue daily monitory for secretions. No change in management at this time. Continue with aggressive suctioning multiple times a day per respiratory therapist. Thick secretions Duoneb 3ml INH Q8 and Mucomist [address] Q8 [address]. Salgado reconsulted for possible mucous plug Started on Solumedrol 40mg IV daily Anoxic brain injury s/p cardiac arrest in 05/2015 no acute changes Pt has non spontaneous movements. continue current management. Continue tube feeds- 40cc/hr Florastor 250mg PO TID via PEG Sacral Ulcers- HEALED Cont with offloading/cushioning/turning Continue frequent turning, protective ointment and skin checks. Continue wound care CAD (coronary artery disease) s/p cardiac stents on 06/13/15 Cont ASA 81mg via PEG daily Cont Coreg 3.125mg PEG BID Cont Plavix 75mg PO daily Seizures Cont Keppra 500mg PEG BID for seizure prophylaxis Monitor for activity Lower extremity edema Improved Monitor Prophylactic measure Pepcid 20 mg PEG BID Lovenox 40mg SC daily SCDs and offloading boots continue to turn and reposition q2h Feeds @ 40cc/hr Continue to monitor medication administrations and clinical presentation weekly labs DW Beth Ruiz DO, PGY-1 <Donnell Ying - Last Filed: 04/17/17 16:08> Objective - Vital Signs/Intake and Output Vital Signs (last 24 hours): Temp Pulse Resp BP Pulse Ox 98.6 F 67 18 121/83 99 04/17/17 07:00 04/17/17 07:00 04/17/17 07:00 04/17/17 07:00 04/17/17 07:00 Intake and Output: 04/17/17 04/17/17 06:59 18:59 Intake Total 1490 Output Total 550 Balance 940 - Medications Medications: Current Medications Acetaminophen (Tylenol 650mg/20.3ml Solution Ud) 650 mg PEG Q6 PRN PRN Reason: Fever >100.4 F Last Admin: 04/07/17 02:45 Dose: 650 mg Acetylcysteine (Acetylcysteine 20%) 4 ml INH RQ6 [facility] Last Admin: 04/17/17 13:38 Dose: 4 ml Albuterol/Ipratropium (Duoneb 3 Mg/0.5 Mg (3 Ml) Ud) 3 ml INH RQ6 [facility] Last Admin: 04/17/17 13:38 Dose: 3 ml Aspirin (Aspirin Chewable) 81 mg PO DAILY [facility] Last Admin: 04/17/17 09:32 Dose: 81 mg Bethanechol Chloride (Urecholine) 50 mg PO TID [facility] Last Admin: 04/17/17 14:18 Dose: 50 mg Carvedilol (Coreg) 3.125 mg PEG BID [facility] Last Admin: 04/17/17 09:35 Dose: 3.125 mg Clopidogrel Bisulfate (Plavix) 75 mg PO DAILY [facility] Last Admin: 04/17/17 09:32 Dose: 75 mg Famotidine (Pepcid) 20 mg PEG BID [facility] Last Admin: 04/17/17 09:34 Dose: 20 mg Finasteride (Proscar) 5 mg PO DAILY [facility] Last Admin: 04/17/17 09:32 Dose: 5 mg Amikacin Sulfate 250 mg/ (Sodium Chloride) 101 mls @ 100 mls/hr IV Q12 [facility] Last Admin: 04/17/17 09:30 Dose: 100 mls/hr Meropenem 1 gm/ Sodium (Chloride) 100 mls @ 100 mls/hr IVPB Q8H [facility] Last Admin: 04/17/17 09:34 Dose: 100 mls/hr Levetiracetam (Keppra) 500 mg PO BID [facility] Last Admin: 04/17/17 09:31 Dose: 500 mg Methylprednisolone (Solu-Medrol) 20 mg IVP Q12 [facility] Saccharomyces Boulardii (Florastor) 250 mg PO TID [facility] Last Admin: 04/17/17 14:14 Dose: 250 mg Tamsulosin HCl (Flomax) 0.4 mg PO DAILY [facility] Last Admin: 04/17/17 09:32 Dose: 0.4 mg - Labs Labs: 04/13/17 06:54 04/13/17 06:54 PT 10.6 SECONDS (9.7-12.2) 11/24/15 14:10 INR 1.0 11/24/15 14:10 APTT 25 SECONDS (21-34) 11/24/15 14:10 Attending/Attestation - Attestation I have personally seen and examined this patient.: Yes I have fully participated in the care of the patient.: Yes I have reviewed all pertinent clinical information, including history, physical exam and plan: Yes Notes (Text): 04/17/17 16:07 Patient was seen and examined at bedside with the resident Continue treatment for UTI. Meropenem and amikacin. Patient is also on steroids for respiratory distress. We will taper the steroids. Skin examined. No sacral decubitus ulcer present I discussed the plan of care with the resident. I agree with the above history and physical and assessment/plan by the resident.
[2017-04-17] MEDS: levETIRAcetam 100 mg/ml (5ml) Oral Syringe PO SCH ×2 (09:31→18:18)
[2017-04-17] MEDS: Saccharomyces Boulardi 250 mg Cap PO SCH ×3 (09:32→18:19)
[2017-04-18] MEDS: Meropenem 1 GM in Sodium Chloride 0.9% 100 ML IVPB SCH ×3 (01:43→18:16)
[2017-04-18] MEDS: Acetylcysteine 20% Inhal Soln (4ml) INH SCH ×4 (01:57→19:23)
[2017-04-18] MEDS: Albuterol-Ipratrop 3 mg / 0.5 (3 ml) UD INH SCH ×4 (01:57→19:23)
--- NOTE | 2017-04-18 02:32 | CP.PCM.PN ---
<Al Victoria - Last Filed: 04/18/17 02:38> Subjective - Date & Time of Evaluation Date of Evaluation: 04/18/17 Time of Evaluation: 02:30 - Subjective Subjective: Medicine progress note. Attending: Dr. Ying Patient seen and examined at bedside. IV access lost - consent received for PICC line; Restarted Amikacin, Meropenem, and IV solumedrol. Urine culture positive for Proteus mirabilis. Sputum Culture- + Proteus, Pseudo. Blood cultures negative x 5 days. Patient has been having good urine output. PEG site clean/dry/intact. Patient has nonspontaneous, non directed movements. ROS unobtainable due to clinical condition Objective - Vital Signs/Intake and Output Vital Signs (last 24 hours): Temp Pulse Resp BP Pulse Ox 97.5 F L 67 20 104/66 99 04/18/17 00:01 04/18/17 00:01 04/18/17 00:01 04/18/17 00:01 04/18/17 00:01 Intake and Output: 04/17/17 04/18/17 18:59 06:59 Intake Total 720 720 Output Total 300 400 Balance 420 320 - Medications Medications: Current Medications Acetaminophen (Tylenol 650mg/20.3ml Solution Ud) 650 mg PEG Q6 PRN PRN Reason: Fever >100.4 F Last Admin: 04/07/17 02:45 Dose: 650 mg Acetylcysteine (Acetylcysteine 20%) 4 ml INH RQ6 [facility] Last Admin: 04/18/17 01:57 Dose: 4 ml Albuterol/Ipratropium (Duoneb 3 Mg/0.5 Mg (3 Ml) Ud) 3 ml INH RQ6 [facility] Last Admin: 04/18/17 01:57 Dose: 3 ml Aspirin (Aspirin Chewable) 81 mg PO DAILY [facility] Last Admin: 04/17/17 09:32 Dose: 81 mg Bethanechol Chloride (Urecholine) 50 mg PO TID [facility] Last Admin: 04/17/17 18:19 Dose: 50 mg Carvedilol (Coreg) 3.125 mg PEG BID [facility] Last Admin: 04/17/17 18:19 Dose: 3.125 mg Clopidogrel Bisulfate (Plavix) 75 mg PO DAILY [facility] Last Admin: 04/17/17 09:32 Dose: 75 mg Famotidine (Pepcid) 20 mg PEG BID [facility] Last Admin: 04/17/17 18:20 Dose: 20 mg Finasteride (Proscar) 5 mg PO DAILY [facility] Last Admin: 04/17/17 09:32 Dose: 5 mg Amikacin Sulfate 250 mg/ (Sodium Chloride) 101 mls @ 100 mls/hr IV Q12 [facility] Last Admin: 04/17/17 22:00 Dose: 100 mls/hr Meropenem 1 gm/ Sodium (Chloride) 100 mls @ 100 mls/hr IVPB Q8H [facility] Last Admin: 04/18/17 01:43 Dose: 100 mls/hr Levetiracetam (Keppra) 500 mg PO BID [facility] Last Admin: 04/17/17 18:18 Dose: 500 mg Methylprednisolone (Solu-Medrol) 20 mg IVP Q12 [facility] Saccharomyces Boulardii (Florastor) 250 mg PO TID [facility] Last Admin: 04/17/17 18:19 Dose: 250 mg Tamsulosin HCl (Flomax) 0.4 mg PO DAILY [facility] Last Admin: 04/17/17 09:32 Dose: 0.4 mg - Labs Labs: 04/13/17 06:54 04/13/17 06:54 PT 10.6 SECONDS (9.7-12.2) 11/24/15 14:10 INR 1.0 11/24/15 14:10 APTT 25 SECONDS (21-34) 11/24/15 14:10 - Constitutional Appears: No Acute Distress - Head Exam Head Exam: ATRAUMATIC, NORMAL INSPECTION, NORMOCEPHALIC - ENT Exam ENT Exam: Mucous Membranes Moist - Neck Exam Neck Exam: absent: Normal Inspection Additional comments: Trach collar in place - Respiratory Exam Respiratory Exam: absent: Respiratory Distress - Cardiovascular Exam Cardiovascular Exam: +S1, +S2 - GI/Abdominal Exam GI & Abdominal Exam: Soft, Normal Bowel Sounds. absent: Tenderness - Extremities Exam Extremities Exam: Full ROM, Normal Inspection - Neurological Exam Neurological Exam: Awake. absent: Oriented x3 - Psychiatric Exam Additional comments: Unable to assess - Skin Skin Exam: Dry, Intact, Normal Color, Warm Assessment and Plan - Assessment and Plan (Free Text) Assessment: This is a 66 yo male presenting with UTI urine culture is + Proteus Mirabilis Amikacin 250mg IV Q12 (04/08), Meropenem IV 1 g q8 hrs (04/13) 04/06 blood cultures no growth x 5 days urine culture prelim Gram negative patsy Patient given 1gm 1 dose vancomycin 04/[address] [place] [address] Tylenol 650mg po q6 PEG for fever temp > 100.4F Urinary Retention Take note condom cath not always securely in place so Is and Os are approximate as patient wets bed Flomax 0.4mg PEG daily Proscar 5mg PEG daily continue Bethanecol 50mg PEG TID- started after persistent retention and found to be effective. monitor I's and O's Check bladder scan for residual urine three times weekly Respiratory failure Trach in place, continue daily monitoring for secretions. No change in management at this time. Continue with aggressive suctioning multiple times a day per respiratory therapist. Thick secretions Duoneb 3ml INH Q8 and Mucomyst 4ml INH Q8 Dr. Salgado reconsulted for possible mucous plug Started on Solumedrol 40mg IV daily>>> changed to solumedrol 20 mg IV q 12 hrs. Anoxic brain injury s/p cardiac arrest in 05/2015 no acute changes Pt has non spontaneous movements. continue current management. Continue tube feeds- 40cc/hr Florastor 250mg PO TID via PEG Sacral Ulcers- HEALED Cont with offloading/cushioning/turning Continue frequent turning, protective ointment and skin checks. Continue wound care Hx of CAD s/p cardiac stents on 06/13/15 Cont ASA 81mg via PEG daily Cont Coreg 3.125mg PEG BID Cont Plavix 75mg PO daily Seizures Cont Keppra 500mg PEG BID for seizure prophylaxis Monitor for activity Lower extremity edema Improved Monitor Prophylactic measure Pepcid 20 mg PEG BID Lovenox 40mg SC daily SCDs and offloading boots continue to turn and reposition q2hrs Feeds @ 40cc/hr Continue to monitor medication administrations and clinical presentation weekly labs to be discussed with Dr. Ying <Donnell Ying - Last Filed: 04/18/17 15:01> Objective - Vital Signs/Intake and Output Vital Signs (last 24 hours): Temp Pulse Resp BP Pulse Ox 98.5 F 64 20 116/73 98 04/18/17 08:12 04/18/17 08:12 04/18/17 08:12 04/18/17 08:12 04/18/17 08:12 Intake and Output: 04/18/17 04/18/17 06:59 18:59 Intake Total 1340 Output Total 700 Balance 640 - Medications Medications: Current Medications Acetaminophen (Tylenol 650mg/20.3ml Solution Ud) 650 mg PEG Q6 PRN PRN Reason: Fever >100.4 F Last Admin: 04/07/17 02:45 Dose: 650 mg Acetylcysteine (Acetylcysteine 20%) 4 ml INH RQ6 [facility] Last Admin: 04/18/17 14:09 Dose: 4 ml Albuterol/Ipratropium (Duoneb 3 Mg/0.5 Mg (3 Ml) Ud) 3 ml INH RQ6 [facility] Last Admin: 04/18/17 14:10 Dose: 3 ml Aspirin (Aspirin Chewable) 81 mg PO DAILY [facility] Last Admin: 04/18/17 10:32 Dose: 81 mg Bethanechol Chloride (Urecholine) 50 mg PO TID [facility] Last Admin: 04/18/17 14:40 Dose: 50 mg Carvedilol (Coreg) 3.125 mg PEG BID [facility] Last Admin: 04/18/17 10:32 Dose: 3.125 mg Clopidogrel Bisulfate (Plavix) 75 mg PO DAILY [facility] Last Admin: 04/18/17 10:31 Dose: 75 mg Famotidine (Pepcid) 20 mg PEG BID [facility] Last Admin: 04/18/17 10:31 Dose: 20 mg Finasteride (Proscar) 5 mg PO DAILY [facility] Last Admin: 04/18/17 10:32 Dose: 5 mg Meropenem 1 gm/ Sodium (Chloride) 100 mls @ 100 mls/hr IVPB Q8H [facility] Last Admin: 04/18/17 10:34 Dose: 100 mls/hr Levetiracetam (Keppra) 500 mg PO BID [facility] Last Admin: 04/18/17 10:30 Dose: 500 mg Methylprednisolone (Solu-Medrol) 20 mg IVP Q12 [facility] Last Admin: 04/18/17 10:35 Dose: 20 mg Saccharomyces Boulardii (Florastor) 250 mg PO TID [facility] Last Admin: 04/18/17 14:39 Dose: 250 mg Tamsulosin HCl (Flomax) 0.4 mg PO DAILY [facility] Last Admin: 04/18/17 10:31 Dose: 0.4 mg - Labs Labs: 04/13/17 06:54 04/13/17 06:54 PT 10.6 SECONDS (9.7-12.2) 11/24/15 14:10 INR 1.0 11/24/15 14:10 APTT 25 SECONDS (21-34) 11/24/15 14:10 Attending/Attestation - Attestation I have personally seen and examined this patient.: Yes I have fully participated in the care of the patient.: Yes I have reviewed all pertinent clinical information, including history, physical exam and plan: Yes Notes (Text): 04/18/17 14:58 Patient was seen and examined at bedside with the resident. Continue IV antibiotics for UTI and steroids for respiratory distress. I agree with the above history and physical and assessment/plan by the resident.
[2017-04-18] MEDS: levETIRAcetam 100 mg/ml (5ml) Oral Syringe PO SCH ×2 (10:30→17:51)
[2017-04-18] MEDS: Saccharomyces Boulardi 250 mg Cap PO SCH ×4 (10:32→17:50)
[2017-04-18] MEDS: MethylPREDNISolone 40 mg Vial IVP SCH ×2 (10:35→21:13)
[2017-04-19] MEDS: Albuterol-Ipratrop 3 mg / 0.5 (3 ml) UD INH SCH ×2 (01:18→08:48)
[2017-04-19] MEDS: Acetylcysteine 20% Inhal Soln (4ml) INH SCH ×5 (01:19→20:00)
[2017-04-19] MEDS: Meropenem 1 GM in Sodium Chloride 0.9% 100 ML IVPB SCH ×3 (01:24→18:02)
--- NOTE | 2017-04-19 04:34 | CP.PCM.PN ---
<Al Victoria - Last Filed: 04/19/17 04:38> Subjective - Date & Time of Evaluation Date of Evaluation: 04/19/17 Time of Evaluation: 04:30 - Subjective Subjective: Medicine progress note. Attending: Dr. Ying Patient seen and examined at bedside. IV access lost - consent received for PICC line; Restarted Amikacin, Meropenem, and IV solumedrol. Amikacin discontinued. Urine culture positive for Proteus mirabilis. Sputum Culture- + Proteus, Pseudo. Blood cultures negative x 5 days. Patient has been having good urine output. PEG site clean/dry/intact. Patient has nonspontaneous, non directed movements. ROS unobtainable due to clinical condition Objective - Vital Signs/Intake and Output Vital Signs (last 24 hours): Temp Pulse Resp BP Pulse Ox 98.7 F 80 20 112/74 98 04/19/17 00:31 04/19/17 00:31 04/19/17 00:31 04/19/17 00:31 04/19/17 00:31 Intake and Output: 04/18/17 04/19/17 18:59 06:59 Intake Total 420 770 Output Total 500 1000 Balance -80 -230 - Medications Medications: Current Medications Acetaminophen (Tylenol 650mg/20.3ml Solution Ud) 650 mg PEG Q6 PRN PRN Reason: Fever >100.4 F Last Admin: 04/07/17 02:45 Dose: 650 mg Acetylcysteine (Acetylcysteine 20%) 4 ml INH RQ6 [facility] Last Admin: 04/19/17 01:19 Dose: 4 ml Albuterol/Ipratropium (Duoneb 3 Mg/0.5 Mg (3 Ml) Ud) 3 ml INH RQ6 [facility] Last Admin: 04/19/17 01:18 Dose: 3 ml Aspirin (Aspirin Chewable) 81 mg PO DAILY [facility] Last Admin: 04/18/17 10:32 Dose: 81 mg Bethanechol Chloride (Urecholine) 50 mg PO TID [facility] Last Admin: 04/18/17 17:50 Dose: 50 mg Carvedilol (Coreg) 3.125 mg PEG BID [facility] Last Admin: 04/18/17 17:49 Dose: 3.125 mg Clopidogrel Bisulfate (Plavix) 75 mg PO DAILY [facility] Last Admin: 04/18/17 10:31 Dose: 75 mg Famotidine (Pepcid) 20 mg PEG BID [facility] Last Admin: 04/18/17 17:50 Dose: 20 mg Finasteride (Proscar) 5 mg PO DAILY [facility] Last Admin: 04/18/17 10:32 Dose: 5 mg Meropenem 1 gm/ Sodium (Chloride) 100 mls @ 100 mls/hr IVPB Q8H [facility] Last Admin: 04/19/17 01:24 Dose: 100 mls/hr Levetiracetam (Keppra) 500 mg PO BID [facility] Last Admin: 04/18/17 17:51 Dose: 500 mg Methylprednisolone (Solu-Medrol) 20 mg IVP Q12 [facility] Last Admin: 04/18/17 21:13 Dose: 20 mg Saccharomyces Boulardii (Florastor) 250 mg PO TID [facility] Last Admin: 04/18/17 17:50 Dose: 250 mg Tamsulosin HCl (Flomax) 0.4 mg PO DAILY [facility] Last Admin: 04/18/17 10:31 Dose: 0.4 mg - Labs Labs: 04/13/17 06:54 04/13/17 06:54 PT 10.6 SECONDS (9.7-12.2) 11/24/15 14:10 INR 1.0 11/24/15 14:10 APTT 25 SECONDS (21-34) 11/24/15 14:10 - Constitutional Appears: Chronically Ill - Head Exam Head Exam: ATRAUMATIC, NORMAL INSPECTION, NORMOCEPHALIC - Neck Exam Neck Exam: absent: Full ROM Additional comments: Trach collar in place - Respiratory Exam Respiratory Exam: NORMAL BREATHING PATTERN. absent: Respiratory Distress - Cardiovascular Exam Cardiovascular Exam: +S1, +S2 - GI/Abdominal Exam GI & Abdominal Exam: Soft, Normal Bowel Sounds. absent: Tenderness - Extremities Exam Extremities Exam: Full ROM, Normal Inspection - Neurological Exam Neurological Exam: Altered - Psychiatric Exam Additional comments: Unable to assess - Skin Skin Exam: Dry, Intact, Normal Color, Warm Assessment and Plan - Assessment and Plan (Free Text) Assessment: This is a 66 yo male presenting with UTI urine culture is + Proteus Mirabilis Amikacin 250mg IV Q12 (04/08)>>>> amikacin discontinued on 04/18, Meropenem IV 1 g q8 hrs (04/13) 04/06 blood cultures no growth x 5 days urine culture positive for proteus Patient given 1gm 1 dose vancomycin 04/[address] [place] [address] Tylenol 650mg po q6 PEG for fever temp > 100.4F Urinary Retention Take note condom cath not always securely in place so Is and Os are approximate as patient wets bed Flomax 0.4mg PEG daily Proscar 5mg PEG daily continue Bethanecol 50mg PEG TID- started after persistent retention and found to be effective. monitor I's and O's Check bladder scan for residual urine three times weekly Respiratory failure Trach in place, continue daily monitoring for secretions. No change in management at this time. Continue with aggressive suctioning multiple times a day per respiratory therapist. Thick secretions Duoneb 3ml INH Q8 and Mucomyst 4ml [address] Q8 [address]. Salgado reconsulted for possible mucous plug Started on Solumedrol 40mg IV daily>>> changed to solumedrol 20 mg IV q 12 hrs. Anoxic brain injury s/p cardiac arrest in 05/2015 no acute changes Pt has non spontaneous movements. continue current management. Continue tube feeds- 40cc/hr Florastor 250mg PO TID via PEG Sacral Ulcers- HEALED Cont with offloading/cushioning/turning Continue frequent turning, protective ointment and skin checks. Continue wound care Hx of CAD s/p cardiac stents on 06/13/15 Cont ASA 81mg via PEG daily Cont Coreg 3.125mg PEG BID Cont Plavix 75mg PO daily Seizures Cont Keppra 500mg PEG BID for seizure prophylaxis Monitor for activity Lower extremity edema Improved Monitor Prophylactic measure Pepcid 20 mg PEG BID Lovenox 40mg SC daily SCDs and offloading boots continue to turn and reposition q2hrs Feeds @ 40cc/hr Continue to monitor medication administrations and clinical presentation weekly labs to be discussed with Dr. Ying <Donnell Ying - Last Filed: 04/19/17 13:58> Objective - Vital Signs/Intake and Output Vital Signs (last 24 hours): Temp Pulse Resp BP Pulse Ox 98.4 F 72 19 99/65 L 99 04/19/17 08:09 04/19/17 08:09 04/19/17 08:09 04/19/17 08:09 04/19/17 08:09 Intake and Output: 04/19/17 04/19/17 06:59 18:59 Intake Total 1390 Output Total 1600 Balance -210 - Medications Medications: Current Medications Acetaminophen (Tylenol 650mg/20.3ml Solution Ud) 650 mg PEG Q6 PRN PRN Reason: Fever >100.4 F Last Admin: 04/07/17 02:45 Dose: 650 mg Acetylcysteine (Acetylcysteine 20%) 4 ml INH RQ6 [facility] Last Admin: 04/19/17 13:49 Dose: 4 ml Aspirin (Aspirin Chewable) 81 mg PO DAILY [facility] Last Admin: 04/19/17 10:18 Dose: 81 mg Bethanechol Chloride (Urecholine) 50 mg PO TID [facility] Last Admin: 04/19/17 13:49 Dose: 50 mg Carvedilol (Coreg) 3.125 mg PEG BID [facility] Last Admin: 04/19/17 10:18 Dose: 3.125 mg Clopidogrel Bisulfate (Plavix) 75 mg PO DAILY [facility] Last Admin: 04/19/17 10:18 Dose: 75 mg Famotidine (Pepcid) 20 mg PEG BID [facility] Last Admin: 04/19/17 10:23 Dose: 20 mg Finasteride (Proscar) 5 mg PO DAILY [facility] Last Admin: 04/19/17 10:19 Dose: 5 mg Meropenem 1 gm/ Sodium (Chloride) 100 mls @ 100 mls/hr IVPB Q8H [facility] Last Admin: 04/19/17 10:20 Dose: 100 mls/hr Levetiracetam (Keppra) 500 mg PO BID [facility] Last Admin: 04/19/17 10:19 Dose: 500 mg Methylprednisolone (Solu-Medrol) 20 mg IVP Q12 [facility] Last Admin: 04/19/17 10:19 Dose: 20 mg Saccharomyces Boulardii (Florastor) 250 mg PO TID [facility] Last Admin: 04/19/17 13:50 Dose: 250 mg Tamsulosin HCl (Flomax) 0.4 mg PO DAILY [facility] Last Admin: 04/19/17 10:18 Dose: 0.4 mg - Labs Labs: 04/13/17 06:54 04/13/17 06:54 PT 10.6 SECONDS (9.7-12.2) 11/24/15 14:10 INR 1.0 11/24/15 14:10 APTT 25 SECONDS (21-34) 11/24/15 14:10 Attending/Attestation - Attestation I have personally seen and examined this patient.: Yes I have fully participated in the care of the patient.: Yes I have reviewed all pertinent clinical information, including history, physical exam and plan: Yes Notes (Text): 04/19/17 13:58 Patient was seen and examined at bedside. Breathing is stable Continue IV antibiotics for UTI. Taper steroids I reviewed the chart, labs imaging studies and home service consultant notes. I agree with above history and physical and assessment/pln by the resident.
[2017-04-19] MEDS: Saccharomyces Boulardi 250 mg Cap PO SCH ×3 (10:18→18:01)
[2017-04-19] MEDS: MethylPREDNISolone 40 mg Vial IVP SCH ×2 (10:19→21:46)
[2017-04-19] MEDS: levETIRAcetam 100 mg/ml (5ml) Oral Syringe PO SCH ×2 (10:19→18:01)
--- NOTE | 2017-04-19 16:05 | CP.PCM.PN ---
Subjective - Date & Time of Evaluation Date of Evaluation: 04/19/17 Time of Evaluation: 08:00 - Subjective Subjective: Urine culture positive for Proteus mirabilis. Sputum Culture- + Proteus, Pseudo. no change in mental status cxr shows no new infiltrates Objective - Vital Signs/Intake and Output Vital Signs (last 24 hours): Temp Pulse Resp BP Pulse Ox 98.4 F 72 19 99/65 L 99 04/19/17 08:09 04/19/17 08:09 04/19/17 08:09 04/19/17 08:09 04/19/17 08:09 Intake and Output: 04/19/17 04/19/17 06:59 18:59 Intake Total 1390 Output Total 1600 475 Balance -210 -475 - Medications Medications: Current Medications Acetaminophen (Tylenol 650mg/20.3ml Solution Ud) 650 mg PEG Q6 PRN PRN Reason: Fever >100.4 F Last Admin: 04/07/17 02:45 Dose: 650 mg Acetylcysteine (Acetylcysteine 20%) 4 ml INH RQ6 [facility] Last Admin: 04/19/17 13:49 Dose: 4 ml Aspirin (Aspirin Chewable) 81 mg PO DAILY [facility] Last Admin: 04/19/17 10:18 Dose: 81 mg Bethanechol Chloride (Urecholine) 50 mg PO TID [facility] Last Admin: 04/19/17 13:49 Dose: 50 mg Carvedilol (Coreg) 3.125 mg PEG BID [facility] Last Admin: 04/19/17 10:18 Dose: 3.125 mg Clopidogrel Bisulfate (Plavix) 75 mg PO DAILY [facility] Last Admin: 04/19/17 10:18 Dose: 75 mg Famotidine (Pepcid) 20 mg PEG BID [facility] Last Admin: 04/19/17 10:23 Dose: 20 mg Finasteride (Proscar) 5 mg PO DAILY [facility] Last Admin: 04/19/17 10:19 Dose: 5 mg Meropenem 1 gm/ Sodium (Chloride) 100 mls @ 100 mls/hr IVPB Q8H [facility] Last Admin: 04/19/17 10:20 Dose: 100 mls/hr Levetiracetam (Keppra) 500 mg PO BID [facility] Last Admin: 04/19/17 10:19 Dose: 500 mg Methylprednisolone (Solu-Medrol) 20 mg IVP Q12 [facility] Last Admin: 04/19/17 10:19 Dose: 20 mg Saccharomyces Boulardii (Florastor) 250 mg PO TID [facility] Last Admin: 04/19/17 13:50 Dose: 250 mg Tamsulosin HCl (Flomax) 0.4 mg PO DAILY [facility] Last Admin: 04/19/17 10:18 Dose: 0.4 mg - Labs Labs: 04/13/17 06:54 04/13/17 06:54 PT 10.6 SECONDS (9.7-12.2) 11/24/15 14:10 INR 1.0 11/24/15 14:10 APTT 25 SECONDS (21-34) 11/24/15 14:10 - Constitutional Appears: Non-toxic - Head Exam Head Exam: NORMOCEPHALIC - Eye Exam Eye Exam: absent: Scleral icterus - ENT Exam ENT Exam: Mucous Membranes Dry - Neck Exam Neck Exam: absent: Lymphadenopathy - Respiratory Exam Respiratory Exam: Decreased Breath Sounds, Rhonchi - Cardiovascular Exam Cardiovascular Exam: REGULAR RHYTHM, +S1, +S2 - GI/Abdominal Exam GI & Abdominal Exam: Distended, Soft - Rectal Exam Rectal Exam: Deferred - Exam Exam: NORMAL INSPECTION Assessment and Plan (1) UTI (urinary tract infection) Status: Acute (2) Anoxic encephalopathy Status: Acute - Assessment and Plan (Free Text) Assessment: cont rx x 7 days then d/c
--- NOTE | 2017-04-20 01:00 | CP.PCM.PN ---
<Marcus Yip - Last Filed: 04/20/17 00:57> Subjective - Date & Time of Evaluation Date of Evaluation: 04/20/17 Time of Evaluation: 00:57 - Subjective Subjective: PGY-1 Medicine Progress Note for Dr. Chavis Patient seen and examined at bedside. No acute event overnight. Patient has nonspontaneous, non directed movements. ROS unobtainable due to clinical condition. Objective - Vital Signs/Intake and Output Vital Signs (last 24 hours): Temp Pulse Resp BP Pulse Ox 98.4 F 72 19 99/65 L 99 04/19/17 08:09 04/19/17 08:09 04/19/17 08:09 04/19/17 08:09 04/19/17 08:09 Intake and Output: 04/19/17 04/20/17 18:59 06:59 Intake Total 820 Output Total 475 900 Balance -475 -80 - Medications Medications: Current Medications Acetaminophen (Tylenol 650mg/20.3ml Solution Ud) 650 mg PEG Q6 PRN PRN Reason: Fever >100.4 F Last Admin: 04/07/17 02:45 Dose: 650 mg Acetylcysteine (Acetylcysteine 20%) 4 ml INH RQ6 [facility] Last Admin: 04/19/17 20:00 Dose: Not Given Aspirin (Aspirin Chewable) 81 mg PO DAILY [facility] Last Admin: 04/19/17 10:18 Dose: 81 mg Bethanechol Chloride (Urecholine) 50 mg PO TID [facility] Last Admin: 04/19/17 18:02 Dose: 50 mg Carvedilol (Coreg) 3.125 mg PEG BID [facility] Last Admin: 04/19/17 17:59 Dose: 3.125 mg Clopidogrel Bisulfate (Plavix) 75 mg PO DAILY [facility] Last Admin: 04/19/17 10:18 Dose: 75 mg Famotidine (Pepcid) 20 mg PEG BID [facility] Last Admin: 04/19/17 18:01 Dose: 20 mg Finasteride (Proscar) 5 mg PO DAILY [facility] Last Admin: 04/19/17 10:19 Dose: 5 mg Meropenem 1 gm/ Sodium (Chloride) 100 mls @ 100 mls/hr IVPB Q8H [facility] Last Admin: 04/19/17 18:02 Dose: 100 mls/hr Levetiracetam (Keppra) 500 mg PO BID [facility] Last Admin: 04/19/17 18:01 Dose: 500 mg Methylprednisolone (Solu-Medrol) 20 mg IVP Q12 [facility] Last Admin: 04/19/17 21:46 Dose: 20 mg Saccharomyces Boulardii (Florastor) 250 mg PO TID [facility] Last Admin: 04/19/17 18:01 Dose: 250 mg Tamsulosin HCl (Flomax) 0.4 mg PO DAILY [facility] Last Admin: 04/19/17 10:18 Dose: 0.4 mg - Labs Labs: 04/13/17 06:54 04/13/17 06:54 PT 10.6 SECONDS (9.7-12.2) 11/24/15 14:10 INR 1.0 11/24/15 14:10 APTT 25 SECONDS (21-34) 11/24/15 14:10 - Constitutional Appears: Chronically Ill - Head Exam Head Exam: ATRAUMATIC, NORMOCEPHALIC - Eye Exam Eye Exam: Normal appearance - ENT Exam ENT Exam: Mucous Membranes Moist - Neck Exam Neck Exam: absent: Full ROM - Respiratory Exam Respiratory Exam: NORMAL BREATHING PATTERN. absent: Respiratory Distress Additional comments: Trach collar in place - Cardiovascular Exam Cardiovascular Exam: REGULAR RHYTHM, +S1, +S2 - GI/Abdominal Exam GI & Abdominal Exam: Soft, Normal Bowel Sounds Additional comments: peg tube in place - site c/d/i - Extremities Exam Extremities Exam: Normal Capillary Refill - Back Exam Back Exam: absent: CVA tenderness (L), CVA tenderness (R) - Neurological Exam Neurological Exam: Altered - Psychiatric Exam Additional comments: unable to assess - Skin Skin Exam: Dry, Normal Color, Warm Assessment and Plan - Assessment and Plan (Free Text) Plan: UTI urine culture is + Proteus Mirabilis amikacin discontinued on 04/18, Meropenem IV 1 g q8 hrs (04/13) 04/06 blood cultures no growth x 5 days urine culture positive for proteus Patient given 1gm 1 dose vancomycin 04/06 [place] catheter in place Tylenol 650mg po q6 PEG for fever temp > 100.4F Urinary Retention Take note condom cath not always securely in place so Is and Os are approximate as patient wets bed Flomax 0.4mg PEG daily Proscar 5mg PEG daily continue Bethanecol 50mg PEG TID- started after persistent retention and found to be effective. monitor I's and O's Check bladder scan for residual urine three times weekly Respiratory failure Trach in place, continue daily monitoring for secretions. No change in management at this time. Continue with aggressive suctioning multiple times a day per respiratory therapist. Thick secretions Duoneb 3ml INH Q8 and Mucomyst 4ml INH Q8 Dr. Salgado reconsulted for possible mucous plug solumedrol 20 mg IV q12 Anoxic brain injury s/p cardiac arrest in 05/2015 no acute changes Pt has non spontaneous movements. continue current management. Continue tube feeds- 40cc/hr Florastor 250mg PO TID via PEG Sacral Ulcers- HEALED Cont with offloading/cushioning/turning Continue frequent turning, protective ointment and skin checks. Continue wound care Hx of CAD s/p cardiac stents on 06/13/15 Cont ASA 81mg via PEG daily Cont Coreg 3.125mg PEG BID Cont Plavix 75mg PO daily Seizures Cont Keppra 500mg PEG BID for seizure prophylaxis Monitor for activity Lower extremity edema Improved Monitor Prophylactic measure Pepcid 20 mg PEG BID Lovenox 40mg SC daily SCDs and offloading boots continue to turn and reposition q2hrs Feeds @ 40cc/hr Continue to monitor medication administrations and clinical presentation weekly labs <Amandeep Chavis H - Last Filed: 04/20/17 11:48> Objective - Vital Signs/Intake and Output Vital Signs (last 24 hours): Temp Pulse Resp BP Pulse Ox 98.6 F 70 20 100/66 97 04/20/17 08:20 04/20/17 08:20 04/20/17 08:20 04/20/17 08:20 04/20/17 08:20 Intake and Output: 04/20/17 04/20/17 06:59 18:59 Intake Total 820 Output Total 900 Balance -80 - Medications Medications: Current Medications Acetaminophen (Tylenol 650mg/20.3ml Solution Ud) 650 mg PEG Q6 PRN PRN Reason: Fever >100.4 F Last Admin: 04/07/17 02:45 Dose: 650 mg Acetylcysteine (Acetylcysteine 20%) 4 ml INH RQ6 [facility] Last Admin: 04/20/17 10:24 Dose: Not Given Albuterol/Ipratropium (Duoneb 3 Mg/0.5 Mg (3 Ml) Ud) 3 ml INH RQ6 [facility] Aspirin (Aspirin Chewable) 81 mg PO DAILY [facility] Last Admin: 04/20/17 09:53 Dose: 81 mg Bethanechol Chloride (Urecholine) 50 mg PO TID [facility] Last Admin: 04/20/17 09:52 Dose: 50 mg Carvedilol (Coreg) 3.125 mg PEG BID [facility] Last Admin: 04/20/17 09:53 Dose: 3.125 mg Clopidogrel Bisulfate (Plavix) 75 mg PO DAILY [facility] Last Admin: 04/20/17 09:54 Dose: 75 mg Famotidine (Pepcid) 20 mg PEG BID [facility] Last Admin: 04/20/17 09:52 Dose: 20 mg Finasteride (Proscar) 5 mg PO DAILY [facility] Last Admin: 04/20/17 09:53 Dose: 5 mg Meropenem 1 gm/ Sodium (Chloride) 100 mls @ 100 mls/hr IVPB Q8H [facility] Last Admin: 04/20/17 10:04 Dose: 100 mls/hr Levetiracetam (Keppra) 500 mg PO BID [facility] Last Admin: 04/20/17 09:51 Dose: 500 mg Methylprednisolone (Solu-Medrol) 20 mg IVP Q12 [facility] Last Admin: 04/20/17 09:47 Dose: 20 mg Saccharomyces Boulardii (Florastor) 250 mg PO TID [facility] Last Admin: 04/20/17 09:54 Dose: 250 mg Tamsulosin HCl (Flomax) 0.4 mg PO DAILY [facility] Last Admin: 04/20/17 09:52 Dose: 0.4 mg - Labs Labs: 04/20/17 07:11 04/20/17 07:11 PT 10.6 SECONDS (9.7-12.2) 11/24/15 14:10 INR 1.0 11/24/15 14:10 APTT 25 SECONDS (21-34) 11/24/15 14:10 Assessment and Plan (1) Prophylactic measure Status: Acute (2) Anoxic encephalopathy Status: Acute (3) STEMI (ST elevation myocardial infarction) Status: Acute (4) Cardiac arrest Status: Acute (5) Seizures Status: Acute (6) Respiratory failure Status: Acute Attending/Attestation - Attestation I have personally seen and examined this patient.: Yes I have fully participated in the care of the patient.: Yes I have reviewed all pertinent clinical information, including history, physical exam and plan: Yes Notes (Text): Medical Attending: Patient was seen and examined by me. Agree with the above note by the resident. The patient situation has not changed from before. Currently on IV meropenum at this time for ongoing UTIs. He will always have chronic UTI with difficult to treat organisms that will cause a lot of abx resistance. Amandeep Chavis
[2017-04-20] MEDS: Acetylcysteine 20% Inhal Soln (4ml) INH SCH ×4 (01:30→20:06)
[2017-04-20] MEDS: Meropenem 1 GM in Sodium Chloride 0.9% 100 ML IVPB SCH ×3 (01:34→18:15)
[2017-04-20 07:41] LABS: ALBUMIN 3.4 g/dL (3.5-5.0); BASO % 0.2 % (0.0-2.0); HEMOGLOBIN 12.8 g/dL (12.0-18.0); LYMPH # 1.6 K/uL (1.0-4.3); LYMPH % 9.7 % (20.0-40.0); MEAN CELL VOLUME 88.6 fL (80.0-94.0); MEAN CORPUSCULAR HEMOGLOBIN 28.7 pg (27.0-31.0); MEAN CORPUSCULAR HGB CONC 32.3 g/dL (33.0-37.0); MEAN PLATELET VOLUME 8.7 fL (7.2-11.7); MONO # 0.9 K/uL (0.0-0.8); MONO % 5.8 % (0.0-10.0); NEUT # 13.7 K/uL (1.8-7.0); NEUT % 84.3 % (50.0-75.0); PLATELET COUNT 397 K/uL (130-400); RBC 4.48 Mil/uL (4.40-5.90); WHITE BLOOD COUNT 16.3 K/uL (4.8-10.8)
[2017-04-20 07:43] LABS: GFR NON-AFRICAN AMERICAN > 60
[2017-04-20 07:44] LABS: ALB/GLOB RATIO 0.8 (1.0-2.1); ALT/SGPT 64 U/L (21-72); AST/SGOT 25 U/L (17-59); BLOOD UREA NITROGEN 27 mg/dL (9-20)
[2017-04-20 07:45] LABS: CALCIUM 8.5 mg/dl (8.6-10.4)
[2017-04-20 08:59] LABS: BANDS 3 % (0-2); LYMPHOCYTE 8 % (20-40); MONOCYTE 6 % (0-10); MYELOCYTE 1 % (0-0); NEUTROPHIL 82 % (50-75); PLATELET ESTIMATE NORMAL (NORMAL); TOTAL CELLS COUNTED 100
[2017-04-20 09:00] LABS: ANISOCYTOSIS SLIGHT; HYPOCHROMIC SLIGHT; LARGE PLATELETS PRESENT; POLYCHROMIC SLIGHT; TOXIC GRANULATION PRESENT
[2017-04-20] MEDS: MethylPREDNISolone 40 mg Vial IVP SCH ×2 (09:47→22:01)
[2017-04-20] MEDS: levETIRAcetam 100 mg/ml (5ml) Oral Syringe PO SCH ×2 (09:51→18:14)
[2017-04-20] MEDS: Saccharomyces Boulardi 250 mg Cap PO SCH ×3 (09:54→18:14)
[2017-04-20] MEDS: Albuterol-Ipratrop 3 mg / 0.5 (3 ml) UD INH SCH ×2 (14:27→20:06)
[2017-04-21] MEDS: Acetylcysteine 20% Inhal Soln (4ml) INH SCH ×4 (01:20→20:26)
[2017-04-21] MEDS: Albuterol-Ipratrop 3 mg / 0.5 (3 ml) UD INH SCH ×4 (01:20→20:26)
[2017-04-21] MEDS: Meropenem 1 GM in Sodium Chloride 0.9% 100 ML IVPB SCH ×2 (02:03→10:51)
--- NOTE | 2017-04-21 10:07 | CP.PCM.PN ---
<Tanya Campos - Last Filed: 04/21/17 12:10> Subjective - Date & Time of Evaluation Date of Evaluation: 04/21/17 Time of Evaluation: 07:00 - Subjective Subjective: Medicine Note for Dr. Hallman, Patient was seen and examined at bedside. No acute events overnight. Patient has nonspontaneous, non directed movements. ROS unobtainable due to clinical condition. UTI + proteus, sputum + proteus ---> Finished course of Amikacin (10 days), Meropenam 04/13. Bladder Scan -evaluate for urinary retention Objective - Vital Signs/Intake and Output Vital Signs (last 24 hours): Temp Pulse Resp BP Pulse Ox 97.2 F L 73 20 122/81 100 04/21/17 08:26 04/21/17 08:26 04/21/17 08:26 04/21/17 08:26 04/21/17 08:26 Intake and Output: 04/21/17 04/21/17 06:59 18:59 Intake Total 1240 Output Total 850 Balance 390 - Medications Medications: Current Medications Acetaminophen (Tylenol 650mg/20.3ml Solution Ud) 650 mg PEG Q6 PRN PRN Reason: Fever >100.4 F Last Admin: 04/07/17 02:45 Dose: 650 mg Acetylcysteine (Acetylcysteine 20%) 4 ml INH RQ6 [facility] Last Admin: 04/21/17 09:18 Dose: 4 ml Albuterol/Ipratropium (Duoneb 3 Mg/0.5 Mg (3 Ml) Ud) 3 ml INH RQ6 [facility] Last Admin: 04/21/17 09:18 Dose: 3 ml Aspirin (Aspirin Chewable) 81 mg PO DAILY [facility] Last Admin: 04/20/17 09:53 Dose: 81 mg Bethanechol Chloride (Urecholine) 50 mg PO TID [facility] Last Admin: 04/20/17 18:14 Dose: 50 mg Carvedilol (Coreg) 3.125 mg PEG BID [facility] Last Admin: 04/20/17 18:22 Dose: 3.125 mg Clopidogrel Bisulfate (Plavix) 75 mg PO DAILY [facility] Last Admin: 04/20/17 09:54 Dose: 75 mg Famotidine (Pepcid) 20 mg PEG BID [facility] Last Admin: 04/20/17 18:15 Dose: 20 mg Finasteride (Proscar) 5 mg PO DAILY [facility] Last Admin: 04/20/17 09:53 Dose: 5 mg Meropenem 1 gm/ Sodium (Chloride) 100 mls @ 100 mls/hr IVPB Q8H [facility] Last Admin: 04/21/17 02:03 Dose: 100 mls/hr Levetiracetam (Keppra) 500 mg PO BID [facility] Last Admin: 04/20/17 18:14 Dose: 500 mg Methylprednisolone (Solu-Medrol) 20 mg IVP DAILY [facility] Saccharomyces Boulardii (Florastor) 250 mg PO TID [facility] Last Admin: 04/20/17 18:14 Dose: 250 mg Tamsulosin HCl (Flomax) 0.4 mg PO DAILY [facility] Last Admin: 04/20/17 09:52 Dose: 0.4 mg - Labs Labs: 04/20/17 07:11 04/20/17 07:11 PT 10.6 SECONDS (9.7-12.2) 11/24/15 14:10 INR 1.0 11/24/15 14:10 APTT 25 SECONDS (21-34) 11/24/15 14:10 - Constitutional Appears: Chronically Ill - ENT Exam ENT Exam: Mucous Membranes Moist - Neck Exam Additional comments: Trach collar in place - Respiratory Exam Respiratory Exam: Clear to Ausculation Bilateral, NORMAL BREATHING PATTERN. absent: Decreased Breath Sounds - Cardiovascular Exam Cardiovascular Exam: REGULAR RHYTHM - GI/Abdominal Exam GI & Abdominal Exam: Soft, Normal Bowel Sounds. absent: Distended, Tenderness Additional comments: peg tube in place - site c/d/i - Extremities Exam Extremities Exam: Normal Inspection. absent: Pedal Edema - Neurological Exam Neurological Exam: Altered - Skin Skin Exam: Dry, Normal Color, Warm Assessment and Plan - Assessment and Plan (Free Text) Plan: UTI urine culture is + Proteus Mirabilis Completed course of Amikacin and Meropenem. amikacin discontinued on 04/18 ( total 10), Meropenem (04/13) total 7 days [place] catheter in place Tylenol 650mg po q6 PEG for fever temp > 100.4F Urinary Retention Take note condom cath not always securely in place so Is and Os are approximate as patient wets bed Flomax 0.4mg PEG daily Proscar 5mg PEG daily continue Bethanecol 50mg PEG TID- started after persistent retention and found to be effective. monitor I's and O's Check bladder scan for residual urine three times weekly Respiratory failure Trach in place, continue daily monitoring for secretions. No change in management at this time. Continue with aggressive suctioning multiple times a day per respiratory therapist. Thick secretions Duoneb 3ml INH Q8 and Mucomyst 4ml [address]H Q8 Dr. Salgado reconsulted for possible mucous plug solumedrol 20 mg IV q12 Anoxic brain injury s/p cardiac arrest in 05/2015 no acute changes Pt has non spontaneous movements. continue current management. Continue tube feeds- 40cc/hr Florastor 250mg PO TID via PEG Sacral Ulcers- HEALED Cont with offloading/cushioning/turning Continue frequent turning, protective ointment and skin checks. Continue wound care Hx of CAD s/p cardiac stents on 06/13/15 Cont ASA 81mg via PEG daily Cont Coreg 3.125mg PEG BID Cont Plavix 75mg PO daily Seizures Cont Keppra 500mg PEG BID for seizure prophylaxis Monitor for activity Lower extremity edema Improved Monitor Prophylactic measure Pepcid 20 mg PEG BID Lovenox 40mg SC daily SCDs and offloading boots continue to turn and reposition q2hrs Feeds @ 40cc/hr Continue to monitor medication administrations and clinical presentation weekly labs DW Beth Tai DO, PGY-1 <Donavan Hallman - Last Filed: 04/23/17 12:21> Objective - Vital Signs/Intake and Output Vital Signs (last 24 hours): Temp Pulse Resp BP Pulse Ox 98.8 F 89 18 101/64 99 04/23/17 07:00 04/23/17 07:00 04/23/17 07:00 04/23/17 07:00 04/23/17 07:00 Intake and Output: 04/23/17 04/23/17 06:59 18:59 Intake Total 1040 Output Total 750 Balance 290 - Medications Medications: Current Medications Acetaminophen (Tylenol 650mg/20.3ml Solution Ud) 650 mg PEG Q6 PRN PRN Reason: Fever >100.4 F Last Admin: 04/07/17 02:45 Dose: 650 mg Acetylcysteine (Acetylcysteine 20%) 4 ml INH RQ6 [facility] Last Admin: 04/23/17 08:08 Dose: 4 ml Albuterol/Ipratropium (Duoneb 3 Mg/0.5 Mg (3 Ml) Ud) 3 ml INH RQ6 [facility] Last Admin: 04/23/17 08:08 Dose: 3 ml Aspirin (Aspirin Chewable) 81 mg PO DAILY [facility] Last Admin: 04/23/17 09:08 Dose: 81 mg Bethanechol Chloride (Urecholine) 50 mg PO TID [facility] Last Admin: 04/23/17 09:08 Dose: 50 mg Carvedilol (Coreg) 3.125 mg PEG BID [facility] Last Admin: 04/23/17 09:11 Dose: Not Given Clopidogrel Bisulfate (Plavix) 75 mg PO DAILY [facility] Last Admin: 04/23/17 09:08 Dose: 75 mg Famotidine (Pepcid) 20 mg PEG BID [facility] Last Admin: 04/23/17 09:09 Dose: 20 mg Finasteride (Proscar) 5 mg PO DAILY [facility] Last Admin: 04/23/17 09:08 Dose: 5 mg Levetiracetam (Keppra) 500 mg PO BID [facility] Last Admin: 04/23/17 09:09 Dose: 500 mg Methylprednisolone (Solu-Medrol) 20 mg IVP DAILY [facility] Stop: 04/24/17 10:01 Last Admin: 04/23/17 09:10 Dose: 20 mg Saccharomyces Boulardii (Florastor) 250 mg PO TID [facility] Last Admin: 04/23/17 09:07 Dose: 250 mg Tamsulosin HCl (Flomax) 0.4 mg PO DAILY [facility] Last Admin: 04/23/17 09:09 Dose: 0.4 mg - Labs Labs: 04/20/17 07:11 04/20/17 07:11 PT 10.6 SECONDS (9.7-12.2) 11/24/15 14:10 INR 1.0 11/24/15 14:10 APTT 25 SECONDS (21-34) 11/24/15 14:10 Attending/Attestation - Attestation I have personally seen and examined this patient.: Yes I have fully participated in the care of the patient.: Yes I have reviewed all pertinent clinical information, including history, physical exam and plan: Yes Notes (Text): Patient seen and examined with the resident. Agree with the resident's evaluation, assessment and plan. recurrent UTI's, Anoxic brain Injury, Cardiac arrest, respiratory failure now with trach collar
[2017-04-21] MEDS: Saccharomyces Boulardi 250 mg Cap PO SCH ×3 (10:46→18:16)
[2017-04-21] MEDS: MethylPREDNISolone 40 mg Vial IVP SCH (10:46)
[2017-04-21] MEDS: levETIRAcetam 100 mg/ml (5ml) Oral Syringe PO SCH ×2 (10:48→18:16)
[2017-04-22] MEDS: Albuterol-Ipratrop 3 mg / 0.5 (3 ml) UD INH SCH ×4 (01:37→19:09)
[2017-04-22] MEDS: Acetylcysteine 20% Inhal Soln (4ml) INH SCH ×4 (01:37→19:09)
[2017-04-22] MEDS: levETIRAcetam 100 mg/ml (5ml) Oral Syringe PO SCH ×2 (10:49→18:50)
[2017-04-22] MEDS: Saccharomyces Boulardi 250 mg Cap PO SCH ×3 (10:50→18:50)
[2017-04-22] MEDS: MethylPREDNISolone 40 mg Vial IVP SCH (10:53)
--- NOTE | 2017-04-22 12:27 | CP.PCM.PN ---
<Waqar Camposa - Last Filed: 04/22/17 12:24> Subjective - Date & Time of Evaluation Date of Evaluation: 04/22/17 Time of Evaluation: 10:00 - Subjective Subjective: Medicine Note for Dr. Hallman, Patient was seen and examined at bedside. No acute events overnight. Patient has nonspontaneous, non directed movements. ROS unobtainable due to clinical condition. Bladder Scan -evaluate for urinary retention: 50 Objective - Vital Signs/Intake and Output Vital Signs (last 24 hours): Temp Pulse Resp BP Pulse Ox 98.5 F 70 20 107/62 96 04/22/17 08:23 04/22/17 08:23 04/22/17 08:23 04/22/17 10:51 04/22/17 08:23 Intake and Output: 04/22/17 04/22/17 06:59 18:59 Intake Total 1090 Output Total 400 Balance 690 - Medications Medications: Current Medications Acetaminophen (Tylenol 650mg/20.3ml Solution Ud) 650 mg PEG Q6 PRN PRN Reason: Fever >100.4 F Last Admin: 04/07/17 02:45 Dose: 650 mg Acetylcysteine (Acetylcysteine 20%) 4 ml INH RQ6 [facility] Last Admin: 04/22/17 07:59 Dose: Not Given Albuterol/Ipratropium (Duoneb 3 Mg/0.5 Mg (3 Ml) Ud) 3 ml INH RQ6 [facility] Last Admin: 04/22/17 07:58 Dose: 3 ml Aspirin (Aspirin Chewable) 81 mg PO DAILY [facility] Last Admin: 04/22/17 10:50 Dose: 81 mg Bethanechol Chloride (Urecholine) 50 mg PO TID [facility] Last Admin: 04/22/17 10:50 Dose: 50 mg Carvedilol (Coreg) 3.125 mg PEG BID [facility] Last Admin: 04/22/17 10:50 Dose: 3.125 mg Clopidogrel Bisulfate (Plavix) 75 mg PO DAILY [facility] Last Admin: 04/22/17 10:50 Dose: 75 mg Famotidine (Pepcid) 20 mg PEG BID [facility] Last Admin: 04/22/17 10:52 Dose: 20 mg Finasteride (Proscar) 5 mg PO DAILY [facility] Last Admin: 04/22/17 10:53 Dose: 5 mg Levetiracetam (Keppra) 500 mg PO BID [facility] Last Admin: 04/22/17 10:49 Dose: 500 mg Methylprednisolone (Solu-Medrol) 20 mg IVP DAILY [facility] Stop: 04/24/17 10:01 Last Admin: 04/22/17 10:53 Dose: 20 mg Saccharomyces Boulardii (Florastor) 250 mg PO TID [facility] Last Admin: 04/22/17 10:50 Dose: 250 mg Tamsulosin HCl (Flomax) 0.4 mg PO DAILY [facility] Last Admin: 04/22/17 10:50 Dose: 0.4 mg - Labs Labs: 04/20/17 07:11 04/20/17 07:11 PT 10.6 SECONDS (9.7-12.2) 11/24/15 14:10 INR 1.0 11/24/15 14:10 APTT 25 SECONDS (21-34) 11/24/15 14:10 - Constitutional Appears: Chronically Ill - ENT Exam ENT Exam: Mucous Membranes Moist - Neck Exam Additional comments: Trach collar in place - Respiratory Exam Respiratory Exam: NORMAL BREATHING PATTERN. absent: Wheezes - Cardiovascular Exam Cardiovascular Exam: REGULAR RHYTHM - GI/Abdominal Exam GI & Abdominal Exam: Soft, Normal Bowel Sounds. absent: Distended, Tenderness Additional comments: peg tube in place - site c/d/i - Extremities Exam Extremities Exam: Normal Inspection. absent: Pedal Edema, Tenderness - Neurological Exam Neurological Exam: Alert, Awake, Oriented x3 - Skin Skin Exam: Dry, Intact, Normal Color, Warm Assessment and Plan - Assessment and Plan (Free Text) Plan: UTI Urine culture is + Proteus Mirabilis Completed course of Amikacin and Meropenem. amikacin discontinued on 04/18 ( total 10), Meropenem (04/13) total 7 days [place] catheter in place Tylenol 650mg po q6 PEG for fever temp > 100.4F Urinary Retention Take note condom cath not always securely in place so Is and Os are approximate as patient wets bed Flomax 0.4mg PEG daily Proscar 5mg PEG daily continue Bethanecol 50mg PEG TID- started after persistent retention and found to be effective. monitor I's and O's Check bladder scan for residual urine three times weekly Respiratory failure Trach in place, continue daily monitoring for secretions. No change in management at this time. Continue with aggressive suctioning multiple times a day per respiratory therapist. Thick secretions Duoneb 3ml INH Q8 and Mucomyst 4ml INH Q8 Dr. Salgado reconsulted for possible mucous plug solumedrol 20 mg IV q12 Anoxic brain injury s/p cardiac arrest in 05/2015 no acute changes Pt has non spontaneous movements. continue current management. Continue tube feeds- 40cc/hr Florastor 250mg PO TID via PEG Sacral Ulcers- HEALED Cont with offloading/cushioning/turning Continue frequent turning, protective ointment and skin checks. Continue wound care Hx of CAD s/p cardiac stents on 06/13/15 Cont ASA 81mg via PEG daily Cont Coreg 3.125mg PEG BID Cont Plavix 75mg PO daily Seizures Cont Keppra 500mg PEG BID for seizure prophylaxis Monitor for activity Lower extremity edema Improved Monitor Prophylactic measure Pepcid 20 mg PEG BID Lovenox 40mg SC daily SCDs and offloading boots continue to turn and reposition q2hrs Feeds @ 40cc/hr Continue to monitor medication administrations and clinical presentation weekly labs DW Beth Tai DO, PGY-1 <Donavan Hallman - Last Filed: 04/23/17 12:22> Objective - Vital Signs/Intake and Output Vital Signs (last 24 hours): Temp Pulse Resp BP Pulse Ox 98.8 F 89 18 101/64 99 04/23/17 07:00 04/23/17 07:00 04/23/17 07:00 04/23/17 07:00 04/23/17 07:00 Intake and Output: 04/23/17 04/23/17 06:59 18:59 Intake Total 1040 Output Total 750 Balance 290 - Medications Medications: Current Medications Acetaminophen (Tylenol 650mg/20.3ml Solution Ud) 650 mg PEG Q6 PRN PRN Reason: Fever >100.4 F Last Admin: 04/07/17 02:45 Dose: 650 mg Acetylcysteine (Acetylcysteine 20%) 4 ml INH RQ6 [facility] Last Admin: 04/23/17 08:08 Dose: 4 ml Albuterol/Ipratropium (Duoneb 3 Mg/0.5 Mg (3 Ml) Ud) 3 ml INH RQ6 [facility] Last Admin: 04/23/17 08:08 Dose: 3 ml Aspirin (Aspirin Chewable) 81 mg PO DAILY [facility] Last Admin: 04/23/17 09:08 Dose: 81 mg Bethanechol Chloride (Urecholine) 50 mg PO TID [facility] Last Admin: 04/23/17 09:08 Dose: 50 mg Carvedilol (Coreg) 3.125 mg PEG BID [facility] Last Admin: 04/23/17 09:11 Dose: Not Given Clopidogrel Bisulfate (Plavix) 75 mg PO DAILY [facility] Last Admin: 04/23/17 09:08 Dose: 75 mg Famotidine (Pepcid) 20 mg PEG BID [facility] Last Admin: 04/23/17 09:09 Dose: 20 mg Finasteride (Proscar) 5 mg PO DAILY [facility] Last Admin: 04/23/17 09:08 Dose: 5 mg Levetiracetam (Keppra) 500 mg PO BID [facility] Last Admin: 04/23/17 09:09 Dose: 500 mg Methylprednisolone (Solu-Medrol) 20 mg IVP DAILY [facility] Stop: 04/24/17 10:01 Last Admin: 04/23/17 09:10 Dose: 20 mg Saccharomyces Boulardii (Florastor) 250 mg PO TID [facility] Last Admin: 04/23/17 09:07 Dose: 250 mg Tamsulosin HCl (Flomax) 0.4 mg PO DAILY [facility] Last Admin: 04/23/17 09:09 Dose: 0.4 mg - Labs Labs: 04/20/17 07:11 04/20/17 07:11 PT 10.6 SECONDS (9.7-12.2) 11/24/15 14:10 INR 1.0 11/24/15 14:10 APTT 25 SECONDS (21-34) 11/24/15 14:10 Attending/Attestation - Attestation I have personally seen and examined this patient.: Yes I have fully participated in the care of the patient.: Yes I have reviewed all pertinent clinical information, including history, physical exam and plan: Yes Notes (Text): Patient seen and examined with the resident. Agree with the resident's evaluation, assessment and plan. recurrent UTI's, Anoxic brain Injury, Cardiac arrest, respiratory failure now with trach collar
[2017-04-23] MEDS: Acetylcysteine 20% Inhal Soln (4ml) INH SCH ×4 (01:15→20:21)
[2017-04-23] MEDS: Albuterol-Ipratrop 3 mg / 0.5 (3 ml) UD INH SCH ×4 (01:15→20:21)
--- NOTE | 2017-04-23 07:30 | CP.PCM.PN ---
<Tanya Campos - Last Filed: 04/23/17 07:28> Subjective - Date & Time of Evaluation Date of Evaluation: 04/23/17 Time of Evaluation: 07:00 - Subjective Subjective: Medicine Note for Dr. Hallman, Patient was seen and examined at bedside. No acute events overnight. Patient has nonspontaneous, non directed movements. ROS unobtainable due to clinical condition. Objective - Vital Signs/Intake and Output Vital Signs (last 24 hours): Temp Pulse Resp BP Pulse Ox 98.6 F 79 20 105/71 97 04/22/17 23:22 04/22/17 23:22 04/22/17 23:22 04/22/17 23:22 04/22/17 23:22 Intake and Output: 04/23/17 04/23/17 06:59 18:59 Intake Total 520 Output Total 400 Balance 120 - Medications Medications: Current Medications Acetaminophen (Tylenol 650mg/20.3ml Solution Ud) 650 mg PEG Q6 PRN PRN Reason: Fever >100.4 F Last Admin: 04/07/17 02:45 Dose: 650 mg Acetylcysteine (Acetylcysteine 20%) 4 ml INH RQ6 [facility] Last Admin: 04/23/17 01:15 Dose: 4 ml Albuterol/Ipratropium (Duoneb 3 Mg/0.5 Mg (3 Ml) Ud) 3 ml INH RQ6 [facility] Last Admin: 04/23/17 01:15 Dose: 3 ml Aspirin (Aspirin Chewable) 81 mg PO DAILY [facility] Last Admin: 04/22/17 10:50 Dose: 81 mg Bethanechol Chloride (Urecholine) 50 mg PO TID [facility] Last Admin: 04/22/17 18:50 Dose: 50 mg Carvedilol (Coreg) 3.125 mg PEG BID [facility] Last Admin: 04/22/17 18:50 Dose: 3.125 mg Clopidogrel Bisulfate (Plavix) 75 mg PO DAILY [facility] Last Admin: 04/22/17 10:50 Dose: 75 mg Famotidine (Pepcid) 20 mg PEG BID [facility] Last Admin: 04/22/17 18:50 Dose: 20 mg Finasteride (Proscar) 5 mg PO DAILY [facility] Last Admin: 04/22/17 10:53 Dose: 5 mg Levetiracetam (Keppra) 500 mg PO BID [facility] Last Admin: 04/22/17 18:50 Dose: 500 mg Methylprednisolone (Solu-Medrol) 20 mg IVP DAILY [facility] Stop: 04/24/17 10:01 Last Admin: 04/22/17 10:53 Dose: 20 mg Saccharomyces Boulardii (Florastor) 250 mg PO TID [facility] Last Admin: 04/22/17 18:50 Dose: 250 mg Tamsulosin HCl (Flomax) 0.4 mg PO DAILY [facility] Last Admin: 04/22/17 10:50 Dose: 0.4 mg - Labs Labs: 04/20/17 07:11 04/20/17 07:11 PT 10.6 SECONDS (9.7-12.2) 11/24/15 14:10 INR 1.0 11/24/15 14:10 APTT 25 SECONDS (21-34) 11/24/15 14:10 - Constitutional Appears: No Acute Distress, Chronically Ill - Head Exam Head Exam: NORMAL INSPECTION, NORMOCEPHALIC - ENT Exam ENT Exam: Mucous Membranes Moist - Neck Exam Additional comments: Trach collar in place - Respiratory Exam Respiratory Exam: Clear to Ausculation Bilateral - Cardiovascular Exam Cardiovascular Exam: REGULAR RHYTHM - GI/Abdominal Exam GI & Abdominal Exam: Soft, Normal Bowel Sounds. absent: Distended, Tenderness Additional comments: peg tube in place - site c/d/i - Extremities Exam Extremities Exam: Normal Inspection. absent: Pedal Edema - Neurological Exam Neurological Exam: Awake - Skin Skin Exam: Dry, Intact, Normal Color, Warm Assessment and Plan - Assessment and Plan (Free Text) Plan: UTI Urine culture is + Proteus Mirabilis Completed course of Amikacin and Meropenem. amikacin discontinued on 04/18 ( total 10), Meropenem (04/13) total 7 days [place] catheter in place Tylenol 650mg po q6 PEG for fever temp > 100.4F Urinary Retention Take note condom cath not always securely in place so Is and Os are approximate as patient wets bed Flomax 0.4mg PEG daily Proscar 5mg PEG daily continue Bethanecol 50mg PEG TID- started after persistent retention and found to be effective. monitor I's and O's Check bladder scan for residual urine three times weekly Respiratory failure Trach in place, continue daily monitoring for secretions. No change in management at this time. Continue with aggressive suctioning multiple times a day per respiratory therapist. Thick secretions Duoneb 3ml INH Q8 and Mucomyst 4ml INH Q8 Dr. Salgado reconsulted for possible mucous plug solumedrol 20 mg IV q12 Anoxic brain injury s/p cardiac arrest in 05/2015 no acute changes Pt has non spontaneous movements. continue current management. Continue tube feeds- 40cc/hr Florastor 250mg PO TID via PEG Sacral Ulcers- HEALED Cont with offloading/cushioning/turning Continue frequent turning, protective ointment and skin checks. Continue wound care Hx of CAD s/p cardiac stents on 06/13/15 Cont ASA 81mg via PEG daily Cont Coreg 3.125mg PEG BID Cont Plavix 75mg PO daily Seizures Cont Keppra 500mg PEG BID for seizure prophylaxis Monitor for activity Lower extremity edema Improved Monitor Prophylactic measure Pepcid 20 mg PEG BID Lovenox 40mg SC daily SCDs and offloading boots continue to turn and reposition q2hrs Feeds @ 40cc/hr Continue to monitor medication administrations and clinical presentation weekly labs DW Beth Tai DO, PGY-1 <Donavan Hallman - Last Filed: 04/23/17 12:25> Objective - Vital Signs/Intake and Output Vital Signs (last 24 hours): Temp Pulse Resp BP Pulse Ox 98.8 F 89 18 101/64 99 04/23/17 07:00 04/23/17 07:00 04/23/17 07:00 04/23/17 07:00 04/23/17 07:00 Intake and Output: 04/23/17 04/23/17 06:59 18:59 Intake Total 1040 Output Total 750 Balance 290 - Medications Medications: Current Medications Acetaminophen (Tylenol 650mg/20.3ml Solution Ud) 650 mg PEG Q6 PRN PRN Reason: Fever >100.4 F Last Admin: 04/07/17 02:45 Dose: 650 mg Acetylcysteine (Acetylcysteine 20%) 4 ml INH RQ6 [facility] Last Admin: 04/23/17 08:08 Dose: 4 ml Albuterol/Ipratropium (Duoneb 3 Mg/0.5 Mg (3 Ml) Ud) 3 ml INH RQ6 [facility] Last Admin: 04/23/17 08:08 Dose: 3 ml Aspirin (Aspirin Chewable) 81 mg PO DAILY [facility] Last Admin: 04/23/17 09:08 Dose: 81 mg Bethanechol Chloride (Urecholine) 50 mg PO TID [facility] Last Admin: 04/23/17 09:08 Dose: 50 mg Carvedilol (Coreg) 3.125 mg PEG BID [facility] Last Admin: 04/23/17 09:11 Dose: Not Given Clopidogrel Bisulfate (Plavix) 75 mg PO DAILY [facility] Last Admin: 04/23/17 09:08 Dose: 75 mg Famotidine (Pepcid) 20 mg PEG BID [facility] Last Admin: 04/23/17 09:09 Dose: 20 mg Finasteride (Proscar) 5 mg PO DAILY [facility] Last Admin: 04/23/17 09:08 Dose: 5 mg Levetiracetam (Keppra) 500 mg PO BID [facility] Last Admin: 04/23/17 09:09 Dose: 500 mg Methylprednisolone (Solu-Medrol) 20 mg IVP DAILY [facility] Stop: 04/24/17 10:01 Last Admin: 04/23/17 09:10 Dose: 20 mg Saccharomyces Boulardii (Florastor) 250 mg PO TID [facility] Last Admin: 04/23/17 09:07 Dose: 250 mg Tamsulosin HCl (Flomax) 0.4 mg PO DAILY [facility] Last Admin: 04/23/17 09:09 Dose: 0.4 mg - Labs Labs: 04/20/17 07:11 04/20/17 07:11 PT 10.6 SECONDS (9.7-12.2) 11/24/15 14:10 INR 1.0 11/24/15 14:10 APTT 25 SECONDS (21-34) 11/24/15 14:10 Attending/Attestation - Attestation I have personally seen and examined this patient.: Yes I have fully participated in the care of the patient.: Yes I have reviewed all pertinent clinical information, including history, physical exam and plan: Yes Notes (Text): Patient seen and examined with the resident. Agree with the resident's evaluation, assessment and plan. recurrent UTI's, Anoxic brain Injury, Cardiac arrest, respiratory failure now with trach collar
[2017-04-23] MEDS: Saccharomyces Boulardi 250 mg Cap PO SCH ×3 (09:07→18:23)
[2017-04-23] MEDS: levETIRAcetam 100 mg/ml (5ml) Oral Syringe PO SCH ×2 (09:09→18:24)
[2017-04-23] MEDS: MethylPREDNISolone 40 mg Vial IVP SCH (09:10)
[2017-04-24] MEDS: Acetylcysteine 20% Inhal Soln (4ml) INH SCH ×4 (01:11→19:48)
[2017-04-24] MEDS: Albuterol-Ipratrop 3 mg / 0.5 (3 ml) UD INH SCH ×4 (01:12→19:48)
--- NOTE | 2017-04-24 07:38 | CP.PCM.PN ---
<Tanya Campos - Last Filed: 04/24/17 07:35> Subjective - Date & Time of Evaluation Date of Evaluation: 04/24/17 Time of Evaluation: 07:00 - Subjective Subjective: Medicine Note for Dr. Braswell, Patient was seen and examined at bedside. No acute events overnight. Patient has nonspontaneous, non directed movements. ROS unobtainable due to clinical condition. Objective - Vital Signs/Intake and Output Vital Signs (last 24 hours): Temp Pulse Resp BP Pulse Ox 98.4 F 80 20 103/69 99 04/23/17 23:45 04/23/17 23:45 04/23/17 23:45 04/23/17 23:45 04/23/17 23:45 Intake and Output: 04/24/17 04/24/17 06:59 18:59 Intake Total 1040 Output Total 300 Balance 740 - Medications Medications: Current Medications Acetaminophen (Tylenol 650mg/20.3ml Solution Ud) 650 mg PEG Q6 PRN PRN Reason: Fever >100.4 F Last Admin: 04/07/17 02:45 Dose: 650 mg Acetylcysteine (Acetylcysteine 20%) 4 ml INH RQ6 [facility] Last Admin: 04/24/17 01:11 Dose: 4 ml Albuterol/Ipratropium (Duoneb 3 Mg/0.5 Mg (3 Ml) Ud) 3 ml INH RQ6 [facility] Last Admin: 04/24/17 01:12 Dose: 3 ml Aspirin (Aspirin Chewable) 81 mg PO DAILY [facility] Last Admin: 04/23/17 09:08 Dose: 81 mg Bethanechol Chloride (Urecholine) 50 mg PO TID [facility] Last Admin: 04/23/17 18:24 Dose: 50 mg Carvedilol (Coreg) 3.125 mg PEG BID [facility] Last Admin: 04/23/17 18:23 Dose: 3.125 mg Clopidogrel Bisulfate (Plavix) 75 mg PO DAILY [facility] Last Admin: 04/23/17 09:08 Dose: 75 mg Famotidine (Pepcid) 20 mg PEG BID [facility] Last Admin: 04/23/17 18:23 Dose: 20 mg Finasteride (Proscar) 5 mg PO DAILY [facility] Last Admin: 04/23/17 09:08 Dose: 5 mg Levetiracetam (Keppra) 500 mg PO BID [facility] Last Admin: 04/23/17 18:24 Dose: 500 mg Methylprednisolone (Solu-Medrol) 20 mg IVP DAILY [facility] Stop: 04/24/17 10:01 Last Admin: 04/23/17 09:10 Dose: 20 mg Saccharomyces Boulardii (Florastor) 250 mg PO TID [facility] Last Admin: 04/23/17 18:23 Dose: 250 mg Tamsulosin HCl (Flomax) 0.4 mg PO DAILY [facility] Last Admin: 04/23/17 09:09 Dose: 0.4 mg - Labs Labs: 04/20/17 07:11 04/20/17 07:11 PT 10.6 SECONDS (9.7-12.2) 11/24/15 14:10 INR 1.0 11/24/15 14:10 APTT 25 SECONDS (21-34) 11/24/15 14:10 - Constitutional Appears: No Acute Distress, Chronically Ill - Head Exam Head Exam: NORMAL INSPECTION, NORMOCEPHALIC - Neck Exam Additional comments: Trach collar in place - Respiratory Exam Respiratory Exam: Clear to Ausculation Bilateral, NORMAL BREATHING PATTERN. absent: Wheezes - Cardiovascular Exam Cardiovascular Exam: REGULAR RHYTHM, RRR, +S1, +S2 - GI/Abdominal Exam GI & Abdominal Exam: Soft, Normal Bowel Sounds. absent: Distended, Tenderness Additional comments: peg tube in place - site c/d/i - Neurological Exam Neurological Exam: Awake - Skin Skin Exam: Dry, Intact, Normal Color, Warm Assessment and Plan - Assessment and Plan (Free Text) Plan: UTI Urine culture is + Proteus Mirabilis Completed course of Amikacin and Meropenem. amikacin discontinued on 04/18 ( total 10), Meropenem (04/13) total 7 days [place] catheter in place Tylenol 650mg po q6 PEG for fever temp > 100.4F Will follow up with Thursday WEEKLY labs Urinary Retention Take note condom cath not always securely in place so Is and Os are approximate as patient wets bed Flomax 0.4mg PEG daily Proscar 5mg PEG daily continue Bethanecol 50mg PEG TID- started after persistent retention and found to be effective. monitor I's and O's Check bladder scan for residual urine three times weekly Respiratory failure Trach in place, continue daily monitoring for secretions. No change in management at this time. Continue with aggressive suctioning multiple times a day per respiratory therapist. Thick secretions Duoneb 3ml INH Q8 and Mucomyst 4ml [address]H Q8 Dr. Salgado reconsulted for possible mucous plug solumedrol 20 mg IV q12 Anoxic brain injury s/p cardiac arrest in 05/2015 no acute changes Pt has non spontaneous movements. continue current management. Continue tube feeds- 40cc/hr Florastor 250mg PO TID via PEG Sacral Ulcers- HEALED Cont with offloading/cushioning/turning Continue frequent turning, protective ointment and skin checks. Continue wound care Hx of CAD s/p cardiac stents on 06/13/15 Cont ASA 81mg via PEG daily Cont Coreg 3.125mg PEG BID Cont Plavix 75mg PO daily Seizures Cont Keppra 500mg PEG BID for seizure prophylaxis Monitor for activity Lower extremity edema Improved Monitor Prophylactic measure Pepcid 20 mg PEG BID Lovenox 40mg SC daily SCDs and offloading boots continue to turn and reposition q2hrs Feeds @ 40cc/hr Continue to monitor medication administrations and clinical presentation weekly labs DW Beth Malcolm DO, PGY-1 <Colleen Braswell V - Last Filed: 04/24/17 20:59> Objective - Vital Signs/Intake and Output Vital Signs (last 24 hours): Temp Pulse Resp BP Pulse Ox 98.0 F 71 20 101/67 98 04/24/17 16:00 04/24/17 16:00 04/24/17 16:00 04/24/17 16:00 04/24/17 16:00 Intake and Output: 04/24/17 04/25/17 18:59 06:59 Intake Total 520 Output Total 600 Balance -80 - Medications Medications: Current Medications Acetaminophen (Tylenol 650mg/20.3ml Solution Ud) 650 mg PEG Q6 PRN PRN Reason: Fever >100.4 F Last Admin: 04/07/17 02:45 Dose: 650 mg Acetylcysteine (Acetylcysteine 20%) 4 ml INH RQ6 [facility] Last Admin: 04/24/17 19:48 Dose: 4 ml Albuterol/Ipratropium (Duoneb 3 Mg/0.5 Mg (3 Ml) Ud) 3 ml INH RQ6 [facility] Last Admin: 04/24/17 19:48 Dose: 3 ml Aspirin (Aspirin Chewable) 81 mg PO DAILY [facility] Last Admin: 04/24/17 10:35 Dose: 81 mg Bethanechol Chloride (Urecholine) 50 mg PO TID [facility] Last Admin: 04/24/17 17:52 Dose: 50 mg Carvedilol (Coreg) 3.125 mg PEG BID [facility] Last Admin: 04/24/17 17:50 Dose: 3.125 mg Clopidogrel Bisulfate (Plavix) 75 mg PO DAILY [facility] Last Admin: 04/24/17 10:34 Dose: 75 mg Famotidine (Pepcid) 20 mg PEG BID [facility] Last Admin: 04/24/17 17:52 Dose: 20 mg Finasteride (Proscar) 5 mg PO DAILY [facility] Last Admin: 04/24/17 10:34 Dose: 5 mg Levetiracetam (Keppra) 500 mg PO BID [facility] Last Admin: 04/24/17 17:50 Dose: 500 mg Saccharomyces Boulardii (Florastor) 250 mg PO TID [facility] Last Admin: 04/24/17 17:50 Dose: 250 mg Tamsulosin HCl (Flomax) 0.4 mg PO DAILY [facility] Last Admin: 04/24/17 10:35 Dose: 0.4 mg - Labs Labs: 04/20/17 07:11 04/20/17 07:11 PT 10.6 SECONDS (9.7-12.2) 11/24/15 14:10 INR 1.0 11/24/15 14:10 APTT 25 SECONDS (21-34) 11/24/15 14:10 Attending/Attestation - Attestation I have personally seen and examined this patient.: Yes I have fully participated in the care of the patient.: Yes I have reviewed all pertinent clinical information, including history, physical exam and plan: Yes Notes (Text): patient seen, examined and case discussed with day-time resident. Patient here for prolonged hospitalization s/p cardiac arrest, anoxic brain injury, acute respiratory failure, with history of recurrent urinary tract infections. Patient completed course of Meropenem on 04/20 for Proteus UTI; prior bladder US 50 ml on 04/21/17; due to for repeat bladder scan today Patient completed pulse IV steroids, last dose today. Patient requires suctioning, duonebs and mucomyst to assist in alleviating secretions.
[2017-04-24] MEDS: Saccharomyces Boulardi 250 mg Cap PO SCH ×3 (10:34→17:50)
[2017-04-24] MEDS: levETIRAcetam 100 mg/ml (5ml) Oral Syringe PO SCH ×2 (10:35→17:50)
[2017-04-24] MEDS: MethylPREDNISolone 40 mg Vial IVP SCH (10:35)
--- NOTE | 2017-04-25 00:38 | CP.PCM.PN ---
<Ivania Bernal - Last Filed: 04/25/17 05:15> Subjective - Date & Time of Evaluation Date of Evaluation: 04/25/17 Time of Evaluation: 12:05 - Subjective Subjective: Patient was seen and examined at bedside. No acute events overnight. Patient has nonspontaneous, non directed movements. ROS unobtainable due to clinical condition. Objective - Vital Signs/Intake and Output Vital Signs (last 24 hours): Temp Pulse Resp BP Pulse Ox 98.7 F 76 18 116/81 97 04/25/17 00:06 04/25/17 00:06 04/25/17 00:06 04/25/17 00:06 04/25/17 00:06 Intake and Output: 04/24/17 04/25/17 18:59 06:59 Intake Total 520 720 Output Total 600 200 Balance -80 520 - Medications Medications: Current Medications Acetaminophen (Tylenol 650mg/20.3ml Solution Ud) 650 mg PEG Q6 PRN PRN Reason: Fever >100.4 F Last Admin: 04/07/17 02:45 Dose: 650 mg Acetylcysteine (Acetylcysteine 20%) 4 ml INH RQ6 [facility] Last Admin: 04/24/17 19:48 Dose: 4 ml Albuterol/Ipratropium (Duoneb 3 Mg/0.5 Mg (3 Ml) Ud) 3 ml INH RQ6 [facility] Last Admin: 04/24/17 19:48 Dose: 3 ml Aspirin (Aspirin Chewable) 81 mg PO DAILY [facility] Last Admin: 04/24/17 10:35 Dose: 81 mg Bethanechol Chloride (Urecholine) 50 mg PO TID [facility] Last Admin: 04/24/17 17:52 Dose: 50 mg Carvedilol (Coreg) 3.125 mg PEG BID [facility] Last Admin: 04/24/17 17:50 Dose: 3.125 mg Clopidogrel Bisulfate (Plavix) 75 mg PO DAILY [facility] Last Admin: 04/24/17 10:34 Dose: 75 mg Famotidine (Pepcid) 20 mg PEG BID [facility] Last Admin: 04/24/17 17:52 Dose: 20 mg Finasteride (Proscar) 5 mg PO DAILY [facility] Last Admin: 04/24/17 10:34 Dose: 5 mg Levetiracetam (Keppra) 500 mg PO BID [facility] Last Admin: 04/24/17 17:50 Dose: 500 mg Saccharomyces Boulardii (Florastor) 250 mg PO TID [facility] Last Admin: 04/24/17 17:50 Dose: 250 mg Tamsulosin HCl (Flomax) 0.4 mg PO DAILY [facility] Last Admin: 04/24/17 10:35 Dose: 0.4 mg - Labs Labs: 04/20/17 07:11 04/20/17 07:11 PT 10.6 SECONDS (9.7-12.2) 11/24/15 14:10 INR 1.0 11/24/15 14:10 APTT 25 SECONDS (21-34) 11/24/15 14:10 - Constitutional Appears: Non-toxic, No Acute Distress, Chronically Ill - Head Exam Head Exam: ATRAUMATIC, NORMAL INSPECTION - ENT Exam ENT Exam: Mucous Membranes Dry - Respiratory Exam Respiratory Exam: Accessory Muscle Use, NORMAL BREATHING PATTERN. absent: Respiratory Distress Additional comments: Trach collar in place - Cardiovascular Exam Cardiovascular Exam: REGULAR RHYTHM, +S1, +S2 - GI/Abdominal Exam GI & Abdominal Exam: Soft, Normal Bowel Sounds. absent: Distended, Firm, Guarding, Tenderness Additional comments: peg tube in place - site c/d/i - Extremities Exam Extremities Exam: Pedal Edema - Neurological Exam Neurological Exam: absent: Alert, Awake, Oriented x3 - Skin Skin Exam: Dry, Normal Color, Warm Assessment and Plan - Assessment and Plan (Free Text) Assessment: UTI Urine culture is + Proteus Mirabilis Completed course of Amikacin and Meropenem. amikacin discontinued on 04/18 ( total 10), Meropenem (04/13) total 7 days [place] catheter in place Tylenol 650mg po q6 PEG for fever temp > 100.4F Will follow up with Thursday WEEKLY labs Urinary Retention Take note condom cath not always securely in place so Is and Os are approximate as patient wets bed Flomax 0.4mg PEG daily Proscar 5mg PEG daily continue Bethanecol 50mg PEG TID- started after persistent retention and found to be effective. monitor I's and O's Check bladder scan for residual urine three times weekly Respiratory failure Trach in place, continue daily monitoring for secretions. No change in management at this time. Continue with aggressive suctioning multiple times a day per respiratory therapist. Thick secretions Duoneb 3ml INH Q8 and Mucomyst 4ml INH Q8 Dr. Salgado reconsulted for possible mucous plug solumedrol 20 mg IV q12 Anoxic brain injury s/p cardiac arrest in 05/2015 no acute changes Pt has non spontaneous movements. continue current management. Continue tube feeds- 40cc/hr Florastor 250mg PO TID via PEG Sacral Ulcers- HEALED Cont with offloading/cushioning/turning Continue frequent turning, protective ointment and skin checks. Continue wound care Hx of CAD s/p cardiac stents on 06/13/15 Cont ASA 81mg via PEG daily Cont Coreg 3.125mg PEG BID Cont Plavix 75mg PO daily Seizures Cont Keppra 500mg PEG BID for seizure prophylaxis Monitor for activity Lower extremity edema Improved Monitor Prophylactic measure Pepcid 20 mg PEG BID Lovenox 40mg SC daily SCDs and offloading boots continue to turn and reposition q2hrs Feeds @ 40cc/hr Continue to monitor medication administrations and clinical presentation weekly labs <Donavan Hallman - Last Filed: 05/28/17 13:12> Objective - Vital Signs/Intake and Output Vital Signs (last 24 hours): Temp Pulse Resp BP Pulse Ox 98 F 82 18 114/75 98 05/28/17 00:17 05/28/17 01:20 05/28/17 01:20 05/28/17 01:20 05/28/17 01:20 Intake and Output: 05/28/17 05/28/17 06:59 18:59 Intake Total 1200 Output Total 1000 Balance 200 - Medications Medications: Current Medications Acetaminophen (Tylenol 650mg/20.3ml Solution Ud) 650 mg PEG Q6 PRN PRN Reason: Fever >100.4 F Last Admin: 04/07/17 02:45 Dose: 650 mg Acetylcysteine (Acetylcysteine 20%) 4 ml INH RQ8 [facility] Last Admin: 05/28/17 08:11 Dose: 4 ml Albuterol/Ipratropium (Duoneb 3 Mg/0.5 Mg (3 Ml) Ud) 3 ml INH RQ8 [facility] Last Admin: 05/28/17 08:10 Dose: 3 ml Aspirin (Aspirin Chewable) 81 mg PO DAILY [facility] Last Admin: 05/28/17 09:38 Dose: 81 mg Bethanechol Chloride (Urecholine) 50 mg PEG TID [facility] Last Admin: 05/28/17 09:39 Dose: 50 mg Carvedilol (Coreg) 3.125 mg PEG BID [facility] Last Admin: 05/28/17 09:39 Dose: 3.125 mg Clopidogrel Bisulfate (Plavix) 75 mg PO DAILY [facility] Last Admin: 05/28/17 09:38 Dose: 75 mg Enoxaparin Sodium (Lovenox) 30 mg SC DAILY [facility] Last Admin: 05/28/17 09:56 Dose: 30 mg Famotidine (Pepcid) 20 mg PEG BID [facility] Last Admin: 05/28/17 09:38 Dose: 20 mg Finasteride (Proscar) 5 mg PO DAILY [facility] Last Admin: 05/28/17 09:39 Dose: 5 mg Guaifenesin/Codeine Phosphate (Guaifenesin/Codeine) 10 ml PO DAILY [facility] Last Admin: 05/28/17 09:38 Dose: 10 ml Levetiracetam (Keppra) 500 mg PO BID [facility] Last Admin: 05/28/17 09:39 Dose: 500 mg Saccharomyces Boulardii (Florastor) 250 mg PO DAILY [facility] Last Admin: 05/28/17 09:38 Dose: 250 mg Scopolamine (Transderm-Scop) 1 patch TD Q3D [facility] Last Admin: 05/26/17 11:05 Dose: 1 patch Tamsulosin HCl (Flomax) 0.4 mg PO DAILY [facility] Last Admin: 05/28/17 09:38 Dose: 0.4 mg - Labs Labs: 05/28/17 07:51 05/26/17 09:07 PT 10.6 SECONDS (9.7-12.2) 11/24/15 14:10 INR 1.0 11/24/15 14:10 APTT 25 SECONDS (21-34) 11/24/15 14:10 Attending/Attestation - Attestation I have personally seen and examined this patient.: Yes I have fully participated in the care of the patient.: Yes I have reviewed all pertinent clinical information, including history, physical exam and plan: Yes Notes (Text): Patient Seen and examined with the resident. Agree with the resident's evaluation, assessment and plan. UTI due to Proteus Urinary Retention Respiratory failure Anoxic brain injury
[2017-04-25] MEDS: Albuterol-Ipratrop 3 mg / 0.5 (3 ml) UD INH SCH ×3 (01:49→14:52)
[2017-04-25] MEDS: Acetylcysteine 20% Inhal Soln (4ml) INH SCH ×4 (01:49→20:18)
[2017-04-25] MEDS: Saccharomyces Boulardi 250 mg Cap PO SCH ×2 (09:01→13:44)
[2017-04-25] MEDS: levETIRAcetam 100 mg/ml (5ml) Oral Syringe PO SCH ×2 (13:42→18:14)
[2017-04-26] MEDS: Acetylcysteine 20% Inhal Soln (4ml) INH SCH ×2 (01:46→20:45)
--- NOTE | 2017-04-26 01:56 | CP.PCM.PN ---
Addendum entered and electronically signed by Tanya Campos DO 04/26/17 08:26 : As per nursing, patient had a large watery loose stool. Stool cultures and c. diff were sent. Patient recently completed a course of Amikacin and Meropenem. Pending culture results. Original Note: <Ivania Bernal - Last Filed: 04/26/17 07:11> Subjective - Date & Time of Evaluation Date of Evaluation: 04/26/17 Time of Evaluation: 00:05 - Subjective Subjective: Patient was seen and examined at bedside. Patient has nonspontaneous, non directed movements. ROS unobtainable due to clinical condition. Objective - Vital Signs/Intake and Output Vital Signs (last 24 hours): Temp Pulse Resp BP Pulse Ox 98.5 F 79 20 122/82 99 04/26/17 00:10 04/26/17 00:10 04/26/17 00:10 04/26/17 00:10 04/26/17 00:10 Intake and Output: 04/25/17 04/26/17 18:59 06:59 Intake Total 520 520 Balance 520 520 - Medications Medications: Current Medications Acetaminophen (Tylenol 650mg/20.3ml Solution Ud) 650 mg PEG Q6 PRN PRN Reason: Fever >100.4 F Last Admin: 04/07/17 02:45 Dose: 650 mg Acetylcysteine (Acetylcysteine 20%) 4 ml INH RQ6 [facility] Last Admin: 04/26/17 01:46 Dose: Not Given Carvedilol (Coreg) 3.125 mg PEG BID [facility] Last Admin: 04/25/17 18:00 Dose: Not Given Clopidogrel Bisulfate (Plavix) 75 mg PO DAILY [facility] Last Admin: 04/25/17 09:01 Dose: 75 mg Famotidine (Pepcid) 20 mg PEG BID [facility] Last Admin: 04/25/17 18:14 Dose: 20 mg Finasteride (Proscar) 5 mg PO DAILY [facility] Last Admin: 04/25/17 09:01 Dose: 5 mg Tamsulosin HCl (Flomax) 0.4 mg PO DAILY [facility] Last Admin: 04/25/17 09:01 Dose: 0.4 mg - Labs Labs: 04/20/17 07:11 04/20/17 07:11 PT 10.6 SECONDS (9.7-12.2) 11/24/15 14:10 INR 1.0 11/24/15 14:10 APTT 25 SECONDS (21-34) 11/24/15 14:10 - Head Exam Head Exam: ATRAUMATIC, NORMAL INSPECTION - Eye Exam Pupil Exam: NORMAL ACCOMODATION - ENT Exam ENT Exam: Mucous Membranes Moist - Respiratory Exam Respiratory Exam: Clear to Ausculation Bilateral, NORMAL BREATHING PATTERN. absent: Respiratory Distress Additional comments: Trach collar in place - Cardiovascular Exam Cardiovascular Exam: REGULAR RHYTHM, +S1, +S2 - GI/Abdominal Exam GI & Abdominal Exam: Soft, Normal Bowel Sounds. absent: Distended, Firm, Guarding, Tenderness Additional comments: PEg in tact - Extremities Exam Extremities Exam: Normal Inspection, Pedal Edema Additional comments: boots in place - Back Exam Back Exam: NORMAL INSPECTION - Neurological Exam Neurological Exam: absent: Alert, Awake, Oriented x3 - Skin Skin Exam: Intact, Normal Color, Warm Assessment and Plan - Assessment and Plan (Free Text) Assessment: UTI Urine culture is + Proteus Mirabilis Completed course of Amikacin and Meropenem. amikacin discontinued on 04/18 ( total 10), Meropenem (04/13) total 7 days [place] catheter in place Tylenol 650mg po q6 PEG for fever temp > 100.4F Will follow up with Thursday WEEKLY labs Urinary Retention Take note condom cath not always securely in place so Is and Os are approximate as patient wets bed Flomax 0.4mg PEG daily Proscar 5mg PEG daily continue Bethanecol 50mg PEG TID- started after persistent retention and found to be effective. monitor I's and O's Check bladder scan for residual urine three times weekly Respiratory failure Trach in place, continue daily monitoring for secretions. No change in management at this time. Continue with aggressive suctioning multiple times a day per respiratory therapist. Thick secretions Duoneb 3ml INH Q8 and Mucomyst 4ml INH Q8 Dr. Salgado reconsulted for possible mucous plug solumedrol 20 mg IV q12 Anoxic brain injury s/p cardiac arrest in 05/2015 no acute changes Pt has non spontaneous movements. continue current management. Continue tube feeds- 40cc/hr Florastor 250mg PO TID via PEG Sacral Ulcers- HEALED Cont with offloading/cushioning/turning Continue frequent turning, protective ointment and skin checks. Continue wound care Hx of CAD s/p cardiac stents on 06/13/15 Cont ASA 81mg via PEG daily Cont Coreg 3.125mg PEG BID Cont Plavix 75mg PO daily Seizures Cont Keppra 500mg PEG BID for seizure prophylaxis Monitor for activity Lower extremity edema Improved Monitor Prophylactic measure Pepcid 20 mg PEG BID Lovenox 40mg SC daily SCDs and offloading boots continue to turn and reposition q2hrs Feeds @ 40cc/hr Continue to monitor medication administrations and clinical presentation weekly labs <Colleen Braswell V - Last Filed: 05/24/17 21:41> Objective - Vital Signs/Intake and Output Vital Signs (last 24 hours): Temp Pulse Resp BP Pulse Ox 98.2 F 68 20 117/79 98 05/24/17 16:00 05/24/17 16:00 05/24/17 16:00 05/24/17 16:00 05/24/17 16:00 Intake and Output: 05/24/17 05/25/17 18:59 06:59 Intake Total 600 Output Total 400 Balance 200 - Medications Medications: Current Medications Acetaminophen (Tylenol 650mg/20.3ml Solution Ud) 650 mg PEG Q6 PRN PRN Reason: Fever >100.4 F Last Admin: 04/07/17 02:45 Dose: 650 mg Acetylcysteine (Acetylcysteine 20%) 4 ml INH RQ8 [facility] Last Admin: 05/24/17 16:09 Dose: 4 ml Albuterol/Ipratropium (Duoneb 3 Mg/0.5 Mg (3 Ml) Ud) 3 ml INH RQ8 [facility] Last Admin: 05/24/17 16:09 Dose: 3 ml Aspirin (Aspirin Chewable) 81 mg PO DAILY [facility] Last Admin: 05/24/17 09:55 Dose: 81 mg Bethanechol Chloride (Urecholine) 50 mg PEG TID [facility] Last Admin: 05/24/17 17:59 Dose: 50 mg Carvedilol (Coreg) 3.125 mg PEG BID [facility] Last Admin: 05/24/17 18:00 Dose: 3.125 mg Clopidogrel Bisulfate (Plavix) 75 mg PO DAILY [facility] Last Admin: 05/24/17 09:57 Dose: 75 mg Enoxaparin Sodium (Lovenox) 30 mg SC DAILY [facility] Last Admin: 05/24/17 10:25 Dose: 30 mg Famotidine (Pepcid) 20 mg PEG BID [facility] Last Admin: 05/24/17 17:57 Dose: 20 mg Finasteride (Proscar) 5 mg PO DAILY [facility] Last Admin: 05/24/17 09:57 Dose: 5 mg Guaifenesin/Codeine Phosphate (Guaifenesin/Codeine) 10 ml PO DAILY [facility] Last Admin: 05/24/17 09:56 Dose: 10 ml Levetiracetam (Keppra) 500 mg PO BID [facility] Last Admin: 05/24/17 18:00 Dose: 500 mg Saccharomyces Boulardii (Florastor) 250 mg PO DAILY [facility] Last Admin: 05/24/17 09:56 Dose: 250 mg Scopolamine (Transderm-Scop) 1 patch TD Q3D [facility] Last Admin: 05/23/17 09:41 Dose: 1 patch Tamsulosin HCl (Flomax) 0.4 mg PO DAILY [facility] Last Admin: 05/24/17 09:56 Dose: 0.4 mg - Labs Labs: 05/18/17 07:14 05/18/17 07:14 PT 10.6 SECONDS (9.7-12.2) 11/24/15 14:10 INR 1.0 11/24/15 14:10 APTT 25 SECONDS (21-34) 11/24/15 14:10 Attending/Attestation - Attestation I have personally seen and examined this patient.: Yes I have fully participated in the care of the patient.: Yes I have reviewed all pertinent clinical information, including history, physical exam and plan: Yes
[2017-04-26 15:46] LABS: C DIFF TOXIN A B NEGATIVE (NEGATIVE)
[2017-04-26] MEDS: Albuterol-Ipratrop 3 mg / 0.5 (3 ml) UD INH SCH (20:46)
[2017-04-26 21:46] LABS: FECAL LEUKOCYTES NEGATIVE (NEGATIVE)
[2017-04-27] MEDS: Albuterol-Ipratrop 3 mg / 0.5 (3 ml) UD INH SCH ×4 (01:10→19:53)
[2017-04-27] MEDS: Acetylcysteine 20% Inhal Soln (4ml) INH SCH ×4 (01:10→19:52)
[2017-04-27 06:22] LABS: BASO % 0.3 % (0.0-2.0); EOS # 0.5 K/uL (0.0-0.7); HEMOGLOBIN 10.9 g/dL (12.0-18.0); LYMPH # 2.2 K/uL (1.0-4.3); LYMPH % 16.6 % (20.0-40.0); MEAN CELL VOLUME 88.5 fL (80.0-94.0); MEAN CORPUSCULAR HEMOGLOBIN 28.1 pg (27.0-31.0); MEAN CORPUSCULAR HGB CONC 31.7 g/dL (33.0-37.0); MEAN PLATELET VOLUME 8.8 fL (7.2-11.7); MONO # 1.3 K/uL (0.0-0.8); MONO % 9.7 % (0.0-10.0); NEUT # 9.4 K/uL (1.8-7.0); NEUT % 69.4 % (50.0-75.0); RBC 3.89 Mil/uL (4.40-5.90); RED CELL DISTRIBUTION WIDTH 15.5 % (11.5-14.5); WHITE BLOOD COUNT 13.5 K/uL (4.8-10.8)
[2017-04-27 06:38] LABS: ALBUMIN 2.9 g/dL (3.5-5.0)
[2017-04-27 06:41] LABS: ALB/GLOB RATIO 0.8 (1.0-2.1); ALT/SGPT 57 U/L (21-72); AST/SGOT 31 U/L (17-59); BLOOD UREA NITROGEN 20 mg/dL (9-20); GFR NON-AFRICAN AMERICAN > 60
[2017-04-27 06:42] LABS: CALCIUM 7.8 mg/dl (8.6-10.4)
--- NOTE | 2017-04-27 07:50 | CP.PCM.PN ---
<Saurabh Carmichael - Last Filed: 04/27/17 13:54> Subjective - Date & Time of Evaluation Date of Evaluation: 04/27/17 Time of Evaluation: 07:46 - Subjective Subjective: PGY-[address] Ying Patient was seen and examined at bedside. Nursing reports no acute events overnight. Large watery bowel movement was reported yesterday, so stool culture and C diff toxin were ordered. No additional watery stools overnight. Patient has nonspontaneous, non directed movements. ROS unobtainable due to clinical condition. Objective - Vital Signs/Intake and Output Vital Signs (last 24 hours): Temp Pulse Resp BP Pulse Ox 98.3 F 77 20 110/73 98 04/26/17 23:47 04/26/17 23:47 04/26/17 23:47 04/26/17 23:47 04/26/17 23:47 Intake and Output: 04/27/17 04/27/17 06:59 18:59 Intake Total 1140 Output Total 400 Balance 740 - Medications Medications: Current Medications Acetaminophen (Tylenol 650mg/20.3ml Solution Ud) 650 mg PEG Q6 PRN PRN Reason: Fever >100.4 F Last Admin: 04/07/17 02:45 Dose: 650 mg Acetylcysteine (Acetylcysteine 20%) 4 ml INH RQ6 [facility] Last Admin: 04/27/17 01:10 Dose: 4 ml Albuterol/Ipratropium (Duoneb 3 Mg/0.5 Mg (3 Ml) Ud) 3 ml INH RQ6 [facility] Last Admin: 04/27/17 01:10 Dose: 3 ml Aspirin (Aspirin Chewable) 81 mg PO DAILY [facility] Carvedilol (Coreg) 3.125 mg PEG BID [facility] Last Admin: 04/26/17 17:21 Dose: 3.125 mg Clopidogrel Bisulfate (Plavix) 75 mg PO DAILY [facility] Famotidine (Pepcid) 20 mg PEG BID [facility] Last Admin: 04/26/17 17:26 Dose: 20 mg Finasteride (Proscar) 5 mg PO DAILY [facility] Last Admin: 04/26/17 11:55 Dose: 5 mg Levetiracetam (Keppra) 500 mg PO BID [facility] Last Admin: 04/26/17 17:21 Dose: 500 mg Saccharomyces Boulardii (Florastor) 250 mg PO DAILY [facility] Tamsulosin HCl (Flomax) 0.4 mg PO DAILY [facility] Last Admin: 04/26/17 12:26 Dose: Not Given - Labs Labs: 04/27/17 06:15 04/27/17 06:15 PT 10.6 SECONDS (9.7-12.2) 11/24/15 14:10 INR 1.0 11/24/15 14:10 APTT 25 SECONDS (21-34) 11/24/15 14:10 - Additional Findings Additional findings: - Head Exam Head Exam: ATRAUMATIC, NORMAL INSPECTION - Eye Exam Pupil Exam: NORMAL ACCOMODATION - ENT Exam ENT Exam: Mucous Membranes Moist - Respiratory Exam Respiratory Exam: Clear to Ausculation Bilateral, NORMAL BREATHING PATTERN. absent: Respiratory Distress Additional comments: Trach collar in place - Cardiovascular Exam Cardiovascular Exam: REGULAR RHYTHM, +S1, +S2 - GI/Abdominal Exam GI & Abdominal Exam: Soft, Normal Bowel Sounds. absent: Distended, Firm, Guarding, Tenderness Additional comments: PEG in tact - Extremities Exam Extremities Exam: Normal Inspection, Pedal Edema Additional comments: boots in place - Back Exam Back Exam: NORMAL INSPECTION - Neurological Exam Neurological Exam: absent: Alert, Awake, Oriented x3 - Skin Skin Exam: Intact, Normal Color, Warm Assessment and Plan - Assessment and Plan (Free Text) Plan: Watery Stools Recent completion of Merrem, Amikacin C. diff negative Stool leukocytes negative f/u stool cx Electrolyte Abnormalities K 3.2 on AM labs KCl solution 40meq via PEG x 2 doses UTI Urine culture is + Proteus Mirabilis Completed course of Amikacin and Meropenem. amikacin discontinued on 04/18 ( total 10), Meropenem (04/13) total 7 days [place] catheter in place Tylenol 650mg po q6 PEG for fever temp > 100.4F Will follow up with Thursday WEEKLY labs Urinary Retention Take note condom cath not always securely in place so Is and Os are approximate as patient wets bed Flomax 0.4mg PEG daily Proscar 5mg PEG daily continue Bethanecol 50mg PEG TID- started after persistent retention and found to be effective. monitor I's and O's Check bladder scan for residual urine three times weekly Respiratory failure Trach in place, continue daily monitoring for secretions. No change in management at this time. Continue with aggressive suctioning multiple times a day per respiratory therapist. Thick secretions Duoneb 3ml INH Q8 and Mucomyst 4ml INH Q8 Dr. Salgado reconsulted for possible mucous plug solumedrol 20 mg IV q12 Anoxic brain injury s/p cardiac arrest in 05/2015 no acute changes Pt has non spontaneous movements. continue current management. Continue tube feeds- 40cc/hr Florastor 250mg PO TID via PEG Sacral Ulcers- HEALED Cont with offloading/cushioning/turning Continue frequent turning, protective ointment and skin checks. Continue wound care Hx of CAD s/p cardiac stents on 06/13/15 Cont ASA 81mg via PEG daily Cont Coreg 3.125mg PEG BID Cont Plavix 75mg PO daily Seizures Cont Keppra 500mg PEG BID for seizure prophylaxis Monitor for activity Lower extremity edema Improved Monitor Prophylactic measure Pepcid 20 mg PEG BID Lovenox 40mg SC daily SCDs and offloading boots continue to turn and reposition q2hrs Feeds @ 40cc/hr Continue to monitor medication administrations and clinical presentation weekly labs <Donnell Ying M - Last Filed: 04/27/17 17:14> Objective - Vital Signs/Intake and Output Vital Signs (last 24 hours): Temp Pulse Resp BP Pulse Ox 97.2 F L 78 20 125/78 100 04/27/17 16:00 04/27/17 16:00 04/27/17 16:00 04/27/17 16:00 04/27/17 16:00 Intake and Output: 04/27/17 04/27/17 06:59 18:59 Intake Total 1140 Output Total 400 Balance 740 - Medications Medications: Current Medications Acetaminophen (Tylenol 650mg/20.3ml Solution Ud) 650 mg PEG Q6 PRN PRN Reason: Fever >100.4 F Last Admin: 04/07/17 02:45 Dose: 650 mg Acetylcysteine (Acetylcysteine 20%) 4 ml INH RQ6 [facility] Last Admin: 04/27/17 13:36 Dose: 4 ml Albuterol/Ipratropium (Duoneb 3 Mg/0.5 Mg (3 Ml) Ud) 3 ml INH RQ6 [facility] Last Admin: 04/27/17 13:36 Dose: 3 ml Aspirin (Aspirin Chewable) 81 mg PO DAILY [facility] Last Admin: 04/27/17 11:05 Dose: 81 mg Carvedilol (Coreg) 3.125 mg PEG BID [facility] Last Admin: 04/27/17 11:02 Dose: Not Given Clopidogrel Bisulfate (Plavix) 75 mg PO DAILY [facility] Last Admin: 04/27/17 09:16 Dose: 75 mg Enoxaparin Sodium (Lovenox) 40 mg SC DAILY [facility] Famotidine (Pepcid) 20 mg PEG BID [facility] Last Admin: 04/27/17 09:10 Dose: 20 mg Finasteride (Proscar) 5 mg PO DAILY [facility] Last Admin: 04/27/17 09:10 Dose: 5 mg Levetiracetam (Keppra) 500 mg PO BID [facility] Last Admin: 04/27/17 09:10 Dose: 500 mg Saccharomyces Boulardii (Florastor) 250 mg PO DAILY [facility] Last Admin: 04/27/17 09:16 Dose: 250 mg Tamsulosin HCl (Flomax) 0.4 mg PO DAILY [facility] Last Admin: 04/27/17 09:10 Dose: 0.4 mg - Labs Labs: 04/27/17 06:15 04/27/17 06:15 PT 10.6 SECONDS (9.7-12.2) 11/24/15 14:10 INR 1.0 11/24/15 14:10 APTT 25 SECONDS (21-34) 11/24/15 14:10 Attending/Attestation - Attestation I have personally seen and examined this patient.: Yes I have fully participated in the care of the patient.: Yes I have reviewed all pertinent clinical information, including history, physical exam and plan: Yes Notes (Text): 04/27/17 17:14 Patient seen and examined at bedside with the resident Skin exam and there is no skin break noted. [place] catheter in place. Urine output noted Patient is completed the antibiotic course for UTI. Monitor elevation of the WBC but patient is febrile. Patient was on steroids recently. Continue current management. Awaiting placement.
[2017-04-27] MEDS: Potassium Chloride 20 mEq/15 ml LIQ UD PEG SCH ×2 (08:56→11:03)
[2017-04-27] MEDS: Saccharomyces Boulardi 250 mg Cap PO SCH (09:16)
[2017-04-28] MEDS: Acetylcysteine 20% Inhal Soln (4ml) INH SCH ×4 (01:13→20:46)
[2017-04-28] MEDS: Albuterol-Ipratrop 3 mg / 0.5 (3 ml) UD INH SCH ×4 (01:13→20:46)
--- NOTE | 2017-04-28 07:06 | CP.PCM.PN ---
<Saurabh Carmichael - Last Filed: 04/28/17 12:37> Subjective - Date & Time of Evaluation Date of Evaluation: 04/28/17 Time of Evaluation: 07:04 - Subjective Subjective: PGY-[address] Ying Patient was seen and examined at bedside. Nursing reports no acute events overnight. Clinically same. Patient has non-spontaneous, non directed movements. ROS unobtainable due to clinical condition. Objective - Vital Signs/Intake and Output Vital Signs (last 24 hours): Temp Pulse Resp BP Pulse Ox 98.9 F 83 20 110/72 99 04/27/17 23:29 04/27/17 23:29 04/27/17 23:29 04/27/17 23:29 04/27/17 23:29 Intake and Output: 04/28/17 04/28/17 06:59 18:59 Intake Total 580 Output Total 300 Balance 280 - Medications Medications: Current Medications Acetaminophen (Tylenol 650mg/20.3ml Solution Ud) 650 mg PEG Q6 PRN PRN Reason: Fever >100.4 F Last Admin: 04/07/17 02:45 Dose: 650 mg Acetylcysteine (Acetylcysteine 20%) 4 ml INH RQ6 [facility] Last Admin: 04/28/17 01:13 Dose: 4 ml Albuterol/Ipratropium (Duoneb 3 Mg/0.5 Mg (3 Ml) Ud) 3 ml INH RQ6 [facility] Last Admin: 04/28/17 01:13 Dose: 3 ml Aspirin (Aspirin Chewable) 81 mg PO DAILY [facility] Last Admin: 04/27/17 11:05 Dose: 81 mg Carvedilol (Coreg) 3.125 mg PEG BID [facility] Last Admin: 04/27/17 18:03 Dose: 3.125 mg Clopidogrel Bisulfate (Plavix) 75 mg PO DAILY [facility] Last Admin: 04/27/17 09:16 Dose: 75 mg Enoxaparin Sodium (Lovenox) 40 mg SC DAILY [facility] Famotidine (Pepcid) 20 mg PEG BID [facility] Last Admin: 04/27/17 18:02 Dose: 20 mg Finasteride (Proscar) 5 mg PO DAILY [facility] Last Admin: 04/27/17 09:10 Dose: 5 mg Levetiracetam (Keppra) 500 mg PO BID [facility] Last Admin: 04/27/17 18:03 Dose: 500 mg Saccharomyces Boulardii (Florastor) 250 mg PO DAILY [facility] Last Admin: 04/27/17 09:16 Dose: 250 mg Tamsulosin HCl (Flomax) 0.4 mg PO DAILY [facility] Last Admin: 04/27/17 09:10 Dose: 0.4 mg - Labs Labs: 04/27/17 06:15 04/27/17 06:15 PT 10.6 SECONDS (9.7-12.2) 11/24/15 14:10 INR 1.0 11/24/15 14:10 APTT 25 SECONDS (21-34) 11/24/15 14:10 - Additional Findings Additional findings: - Head Exam Head Exam: ATRAUMATIC, NORMAL INSPECTION - Eye Exam Pupil Exam: NORMAL ACCOMODATION - ENT Exam ENT Exam: Mucous Membranes Moist - Respiratory Exam Respiratory Exam: Clear to Ausculation Bilateral, NORMAL BREATHING PATTERN. absent: Respiratory Distress Additional comments: Trach collar in place - Cardiovascular Exam Cardiovascular Exam: REGULAR RHYTHM, +S1, +S2 - GI/Abdominal Exam GI & Abdominal Exam: Soft, Normal Bowel Sounds. absent: Distended, Firm, Guarding, Tenderness Additional comments: PEG in tact - Extremities Exam Extremities Exam: Normal Inspection, Pedal Edema Additional comments: boots in place - Back Exam Back Exam: NORMAL INSPECTION - Neurological Exam Neurological Exam: absent: Alert, Awake, Oriented x3 - Skin Skin Exam: Intact, Normal Color, Warm Assessment and Plan - Assessment and Plan (Free Text) Plan: Watery Stools Recent completion of Merrem, Amikacin C. diff negative Stool leukocytes negative - f/u stool cx Electrolyte Abnormalities K 3.2 on AM labs KCl solution 40meq via PEG x 2 doses UTI Completed course of Amikacin and Meropenem. amikacin discontinued on 04/18 ( total 10), Meropenem (04/13) total 7 days Urine culture (04/06/17): + Proteus Mirabilis [place] catheter in place Tylenol 650mg po q6 PEG for fever temp > 100.4F Will follow up with Thursday WEEKLY labs Urinary Retention Take note condom cath not always securely in place so Is and Os are approximate as patient wets bed Flomax 0.4mg PEG daily Proscar 5mg PEG daily continue Bethanecol 50mg PEG TID- started after persistent retention and found to be effective. monitor I's and O's Check bladder scan for residual urine three times weekly Respiratory failure Trach in place, continue daily monitoring for secretions. No change in management at this time. Continue with aggressive suctioning multiple times a day per respiratory therapist. Thick secretions Duoneb 3ml INH Q8 and Mucomyst 4ml [address]H Q8 Dr. Salgado reconsulted for possible mucous plug solumedrol 20 mg IV q12 Anoxic brain injury s/p cardiac arrest in 05/2015 no acute changes Pt has non spontaneous movements. continue current management. Continue tube feeds- 40cc/hr Florastor 250mg PO TID via PEG Sacral Ulcers- HEALED Cont with offloading/cushioning/turning Continue frequent turning, protective ointment and skin checks. Continue wound care Hx of CAD s/p cardiac stents on 06/13/15 Cont ASA 81mg via PEG daily Cont Coreg 3.125mg PEG BID Cont Plavix 75mg PO daily Seizures Cont Keppra 500mg PEG BID for seizure prophylaxis Monitor for activity Lower extremity edema Improved Monitor Prophylactic measure Pepcid 20 mg PEG BID Lovenox 40mg SC daily SCDs and offloading boots continue to turn and reposition q2hrs Feeds @ 40cc/hr Continue to monitor medication administrations and clinical presentation weekly labs <Donnell Ying M - Last Filed: 04/28/17 14:40> Objective - Vital Signs/Intake and Output Vital Signs (last 24 hours): Temp Pulse Resp BP Pulse Ox 97.8 F 80 20 121/79 100 04/28/17 08:01 04/28/17 08:01 04/28/17 08:01 04/28/17 08:01 04/28/17 08:01 Intake and Output: 04/28/17 04/28/17 06:59 18:59 Intake Total 580 620 Output Total 300 0 Balance 280 620 - Medications Medications: Current Medications Acetaminophen (Tylenol 650mg/20.3ml Solution Ud) 650 mg PEG Q6 PRN PRN Reason: Fever >100.4 F Last Admin: 04/07/17 02:45 Dose: 650 mg Acetylcysteine (Acetylcysteine 20%) 4 ml INH RQ6 [facility] Last Admin: 04/28/17 13:39 Dose: 4 ml Albuterol/Ipratropium (Duoneb 3 Mg/0.5 Mg (3 Ml) Ud) 3 ml INH RQ6 [facility] Last Admin: 04/28/17 13:39 Dose: 3 ml Aspirin (Aspirin Chewable) 81 mg PO DAILY [facility] Last Admin: 04/28/17 10:26 Dose: 81 mg Carvedilol (Coreg) 3.125 mg PEG BID [facility] Last Admin: 04/28/17 10:26 Dose: 3.125 mg Clopidogrel Bisulfate (Plavix) 75 mg PO DAILY [facility] Last Admin: 04/28/17 10:26 Dose: 75 mg Enoxaparin Sodium (Lovenox) 40 mg SC DAILY [facility] Last Admin: 04/28/17 10:26 Dose: 40 mg Famotidine (Pepcid) 20 mg PEG BID [facility] Last Admin: 04/28/17 10:26 Dose: 20 mg Finasteride (Proscar) 5 mg PO DAILY [facility] Last Admin: 04/28/17 10:33 Dose: 5 mg Levetiracetam (Keppra) 500 mg PO BID [facility] Last Admin: 04/28/17 10:27 Dose: 500 mg Saccharomyces Boulardii (Florastor) 250 mg PO DAILY [facility] Last Admin: 04/28/17 10:26 Dose: 250 mg Tamsulosin HCl (Flomax) 0.4 mg PO DAILY [facility] Last Admin: 04/28/17 10:26 Dose: 0.4 mg - Labs Labs: 04/27/17 06:15 04/27/17 06:15 PT 10.6 SECONDS (9.7-12.2) 11/24/15 14:10 INR 1.0 11/24/15 14:10 APTT 25 SECONDS (21-34) 11/24/15 14:10 Attending/Attestation - Attestation I have personally seen and examined this patient.: Yes I have fully participated in the care of the patient.: Yes I have reviewed all pertinent clinical information, including history, physical exam and plan: Yes Notes (Text): 04/28/17 14:40 Patient was seen and examined at bedside Patient is medically stable Continue current management Awaiting placement.
[2017-04-28] MEDS: Enoxaparin 40 mg Syringe SC SCH (10:26)
[2017-04-28] MEDS: Saccharomyces Boulardi 250 mg Cap PO SCH (10:26)
[2017-04-29] MEDS: Albuterol-Ipratrop 3 mg / 0.5 (3 ml) UD INH SCH ×4 (01:16→19:11)
[2017-04-29] MEDS: Acetylcysteine 20% Inhal Soln (4ml) INH SCH ×4 (01:16→19:11)
--- NOTE | 2017-04-29 06:52 | CP.PCM.PN ---
<Saurabh Carmichael - Last Filed: 04/29/17 16:21> Subjective - Date & Time of Evaluation Date of Evaluation: 04/29/17 Time of Evaluation: 06:50 - Subjective Subjective: PGY-[address] Ying Patient was seen and examined at bedside. Nursing reported decreased urinary output yesterday. Bladder scan showed 250ml in bladder, and bethenecol, which has been used successfully throughout pts course, was restarted. Nursing has reported good urinary output since. Respiratory secretions noted to be thicker. Patient has non-spontaneous, non directed movements. ROS unobtainable due to clinical condition. Objective - Vital Signs/Intake and Output Vital Signs (last 24 hours): Temp Pulse Resp BP Pulse Ox 99.5 F 85 20 106/68 97 04/29/17 00:00 04/29/17 00:00 04/29/17 00:00 04/29/17 00:00 04/29/17 00:00 Intake and Output: 04/28/17 04/29/17 18:59 06:59 Intake Total 620 620 Output Total 0 1200 Balance 620 -580 - Medications Medications: Current Medications Acetaminophen (Tylenol 650mg/20.3ml Solution Ud) 650 mg PEG Q6 PRN PRN Reason: Fever >100.4 F Last Admin: 04/07/17 02:45 Dose: 650 mg Acetylcysteine (Acetylcysteine 20%) 4 ml INH RQ6 [facility] Last Admin: 04/29/17 01:16 Dose: 4 ml Albuterol/Ipratropium (Duoneb 3 Mg/0.5 Mg (3 Ml) Ud) 3 ml INH RQ6 [facility] Last Admin: 04/29/17 01:16 Dose: 3 ml Aspirin (Aspirin Chewable) 81 mg PO DAILY [facility] Last Admin: 04/28/17 10:26 Dose: 81 mg Bethanechol Chloride (Urecholine) 50 mg PEG TID [facility] Last Admin: 04/28/17 17:35 Dose: 50 mg Carvedilol (Coreg) 3.125 mg PEG BID [facility] Last Admin: 04/28/17 17:35 Dose: Not Given Clopidogrel Bisulfate (Plavix) 75 mg PO DAILY [facility] Last Admin: 04/28/17 10:26 Dose: 75 mg Enoxaparin Sodium (Lovenox) 40 mg SC DAILY [facility] Last Admin: 04/28/17 10:26 Dose: 40 mg Famotidine (Pepcid) 20 mg PEG BID [facility] Last Admin: 04/28/17 17:35 Dose: 20 mg Finasteride (Proscar) 5 mg PO DAILY [facility] Last Admin: 04/28/17 10:33 Dose: 5 mg Levetiracetam (Keppra) 500 mg PO BID [facility] Last Admin: 04/28/17 17:35 Dose: 500 mg Saccharomyces Boulardii (Florastor) 250 mg PO DAILY [facility] Last Admin: 04/28/17 10:26 Dose: 250 mg Tamsulosin HCl (Flomax) 0.4 mg PO DAILY [facility] Last Admin: 04/28/17 10:26 Dose: 0.4 mg - Labs Labs: 04/27/17 06:15 04/27/17 06:15 PT 10.6 SECONDS (9.7-12.2) 11/24/15 14:10 INR 1.0 11/24/15 14:10 APTT 25 SECONDS (21-34) 11/24/15 14:10 - Additional Findings Additional findings: - Head Exam Head Exam: ATRAUMATIC, NORMAL INSPECTION - Eye Exam Pupil Exam: NORMAL ACCOMODATION - ENT Exam ENT Exam: Mucous Membranes Moist - Respiratory Exam Respiratory Exam: Clear to Ausculation Bilateral, NORMAL BREATHING PATTERN. absent: Respiratory Distress Additional comments: Trach collar in place, white thick secretions noted - Cardiovascular Exam Cardiovascular Exam: REGULAR RHYTHM, +S1, +S2 - GI/Abdominal Exam GI & Abdominal Exam: Soft, Normal Bowel Sounds. absent: Distended, Firm, Guarding, Tenderness Additional comments: PEG in tact; no redness or discharge visualized - Extremities Exam Extremities Exam: Normal Inspection, Pedal Edema Additional comments: boots in place - Back Exam Back Exam: NORMAL INSPECTION - Neurological Exam Neurological Exam: absent: Alert, Awake, Oriented x3 - Skin Skin Exam: Intact, Normal Color, Warm Assessment and Plan - Assessment and Plan (Free Text) Plan: UTI Completed course of Amikacin and Meropenem. amikacin discontinued on 04/18 ( total 10), Meropenem (04/13) total 7 days Urine culture (04/06/17): + Proteus Mirabilis [place] catheter in place Tylenol 650mg po q6 PEG for fever temp > 100.4F Will follow up with [facility] WEEKLY labs Urinary Retention Take note condom cath not always securely in place so Is and Os are approximate as patient wets bed Flomax 0.4mg PEG daily Proscar 5mg PEG daily continue Bethanecol 50mg PEG TID- started after persistent retention and found to be effective. monitor I's and O's Check bladder scan for residual urine three times weekly Watery Stools Recent completion of Merrem, Amikacin C. diff negative Stool leukocytes negative stool culture (04/26/17) negative Respiratory failure Trach in place, continue daily monitoring for secretions. No change in management at this time. Continue with aggressive suctioning multiple times a day per respiratory therapist. Thick secretions Duoneb 3ml INH Q8 and Mucomyst 4ml INH Q8 Dr. Salgado reconsulted for possible mucous plug solumedrol 20 mg IV q12 Anoxic brain injury s/p cardiac arrest in 05/2015 no acute changes Pt has non spontaneous movements. continue current management. Continue tube feeds- 40cc/hr Florastor 250mg PO TID via PEG Sacral Ulcers- HEALED Cont with offloading/cushioning/turning Continue frequent turning, protective ointment and skin checks. Continue wound care Hx of CAD s/p cardiac stents on 06/13/15 Cont ASA 81mg via PEG daily Cont Coreg 3.125mg PEG BID Cont Plavix 75mg PO daily Seizures Cont Keppra 500mg PEG BID for seizure prophylaxis Monitor for activity Lower extremity edema Improved Monitor Prophylactic measure Pepcid 20 mg PEG BID Lovenox 40mg SC daily SCDs and offloading boots continue to turn and reposition q2hrs Feeds @ 40cc/hr Continue to monitor medication administrations and clinical presentation weekly labs <Donnell Ying M - Last Filed: 04/29/17 16:54> Objective - Vital Signs/Intake and Output Vital Signs (last 24 hours): Temp Pulse Resp BP Pulse Ox 97.7 F 75 20 109/73 99 04/29/17 08:00 04/29/17 08:00 04/29/17 08:00 04/29/17 08:00 04/29/17 08:00 Intake and Output: 04/29/17 04/29/17 06:59 18:59 Intake Total 1140 520 Output Total 1350 200 Balance -210 320 - Medications Medications: Current Medications Acetaminophen (Tylenol 650mg/20.3ml Solution Ud) 650 mg PEG Q6 PRN PRN Reason: Fever >100.4 F Last Admin: 04/07/17 02:45 Dose: 650 mg Acetylcysteine (Acetylcysteine 20%) 4 ml INH RQ6 [facility] Last Admin: 04/29/17 13:34 Dose: 4 ml Albuterol/Ipratropium (Duoneb 3 Mg/0.5 Mg (3 Ml) Ud) 3 ml INH RQ6 [facility] Last Admin: 04/29/17 13:34 Dose: 3 ml Aspirin (Aspirin Chewable) 81 mg PO DAILY [facility] Last Admin: 04/29/17 10:22 Dose: 81 mg Bethanechol Chloride (Urecholine) 50 mg PEG TID [facility] Last Admin: 04/29/17 14:33 Dose: 50 mg Carvedilol (Coreg) 3.125 mg PEG BID [facility] Last Admin: 04/29/17 10:22 Dose: 3.125 mg Clopidogrel Bisulfate (Plavix) 75 mg PO DAILY [facility] Last Admin: 04/29/17 10:22 Dose: 75 mg Enoxaparin Sodium (Lovenox) 40 mg SC DAILY [facility] Last Admin: 04/29/17 10:23 Dose: 40 mg Famotidine (Pepcid) 20 mg PEG BID [facility] Last Admin: 04/29/17 10:22 Dose: 20 mg Finasteride (Proscar) 5 mg PO DAILY [facility] Last Admin: 04/29/17 10:22 Dose: 5 mg Levetiracetam (Keppra) 500 mg PO BID [facility] Last Admin: 04/29/17 10:22 Dose: 500 mg Saccharomyces Boulardii (Florastor) 250 mg PO DAILY [facility] Last Admin: 04/29/17 10:22 Dose: 250 mg Tamsulosin HCl (Flomax) 0.4 mg PO DAILY [facility] Last Admin: 04/29/17 10:22 Dose: 0.4 mg - Labs Labs: 04/27/17 06:15 04/27/17 06:15 PT 10.6 SECONDS (9.7-12.2) 11/24/15 14:10 INR 1.0 11/24/15 14:10 APTT 25 SECONDS (21-34) 11/24/15 14:10 Attending/Attestation - Attestation I have personally seen and examined this patient.: Yes I have fully participated in the care of the patient.: Yes I have reviewed all pertinent clinical information, including history, physical exam and plan: Yes Notes (Text): 04/29/17 16:54 Patient was seen and examined at bedside I reviewed patient's medical records, labs, imaging studies, residents note and agree with the above history and physical and assessment/plan by the resident.
[2017-04-29] MEDS: Saccharomyces Boulardi 250 mg Cap PO SCH (10:22)
[2017-04-29] MEDS: Enoxaparin 40 mg Syringe SC SCH (10:23)
[2017-04-30] MEDS: Albuterol-Ipratrop 3 mg / 0.5 (3 ml) UD INH SCH ×4 (01:07→19:26)
[2017-04-30] MEDS: Acetylcysteine 20% Inhal Soln (4ml) INH SCH ×4 (01:07→19:26)
--- NOTE | 2017-04-30 07:02 | CP.PCM.PN ---
<Saurabh Carmichael - Last Filed: 04/30/17 11:06> Subjective - Date & Time of Evaluation Date of Evaluation: 04/30/17 Time of Evaluation: 07:01 - Subjective Subjective: PGY-[address] Ying Patient was seen and examined at bedside. Nursing reports no acute events overnight. Respiratory secretions remain thick, so robitussin was ordered to thin secretions. Aggressive, and often, suctioning order remains. Patient has non-spontaneous, non directed movements. ROS unobtainable due to clinical condition. Objective - Vital Signs/Intake and Output Vital Signs (last 24 hours): Temp Pulse Resp BP Pulse Ox 98.6 F 80 20 105/64 99 04/29/17 23:55 04/29/17 23:55 04/29/17 23:55 04/29/17 23:55 04/29/17 23:55 Intake and Output: 04/30/17 04/30/17 06:59 18:59 Intake Total 520 Output Total 700 Balance -180 - Medications Medications: Current Medications Acetaminophen (Tylenol 650mg/20.3ml Solution Ud) 650 mg PEG Q6 PRN PRN Reason: Fever >100.4 F Last Admin: 04/07/17 02:45 Dose: 650 mg Acetylcysteine (Acetylcysteine 20%) 4 ml INH RQ6 [facility] Last Admin: 04/30/17 01:07 Dose: 4 ml Albuterol/Ipratropium (Duoneb 3 Mg/0.5 Mg (3 Ml) Ud) 3 ml INH RQ6 [facility] Last Admin: 04/30/17 01:07 Dose: 3 ml Aspirin (Aspirin Chewable) 81 mg PO DAILY [facility] Last Admin: 04/29/17 10:22 Dose: 81 mg Bethanechol Chloride (Urecholine) 50 mg PEG TID [facility] Last Admin: 04/29/17 17:21 Dose: 50 mg Carvedilol (Coreg) 3.125 mg PEG BID [facility] Last Admin: 04/29/17 17:22 Dose: 3.125 mg Clopidogrel Bisulfate (Plavix) 75 mg PO DAILY [facility] Last Admin: 04/29/17 10:22 Dose: 75 mg Enoxaparin Sodium (Lovenox) 40 mg SC DAILY [facility] Last Admin: 04/29/17 10:23 Dose: 40 mg Famotidine (Pepcid) 20 mg PEG BID [facility] Last Admin: 04/29/17 17:22 Dose: 20 mg Finasteride (Proscar) 5 mg PO DAILY [facility] Last Admin: 04/29/17 10:22 Dose: 5 mg Levetiracetam (Keppra) 500 mg PO BID [facility] Last Admin: 04/29/17 17:21 Dose: 500 mg Saccharomyces Boulardii (Florastor) 250 mg PO DAILY [facility] Last Admin: 04/29/17 10:22 Dose: 250 mg Tamsulosin HCl (Flomax) 0.4 mg PO DAILY [facility] Last Admin: 04/29/17 10:22 Dose: 0.4 mg - Labs Labs: 04/27/17 06:15 04/27/17 06:15 PT 10.6 SECONDS (9.7-12.2) 11/24/15 14:10 INR 1.0 11/24/15 14:10 APTT 25 SECONDS (21-34) 11/24/15 14:10 - Additional Findings Additional findings: - Head Exam Head Exam: ATRAUMATIC, NORMAL INSPECTION - Eye Exam Pupil Exam: NORMAL ACCOMODATION - ENT Exam ENT Exam: Mucous Membranes Moist - Respiratory Exam Respiratory Exam: Clear to Ausculation Bilateral, NORMAL BREATHING PATTERN. absent: Respiratory Distress Additional comments: Trach collar in place, white thick secretions noted - Cardiovascular Exam Cardiovascular Exam: REGULAR RHYTHM, +S1, +S2 - GI/Abdominal Exam GI & Abdominal Exam: Soft, Normal Bowel Sounds. absent: Distended, Firm, Guarding, Tenderness Additional comments: PEG in tact; no redness or discharge visualized - Extremities Exam Extremities Exam: Normal Inspection, Pedal Edema Additional comments: boots in place - Back Exam Back Exam: NORMAL INSPECTION - Neurological Exam Neurological Exam: absent: Alert, Awake, Oriented x3 - Skin Skin Exam: Intact, Normal Color, Warm Assessment and Plan - Assessment and Plan (Free Text) Plan: UTI Completed course of Amikacin and Meropenem. amikacin discontinued on 04/18 ( total 10), Meropenem (04/13) total 7 days Urine culture (04/06/17): + Proteus Mirabilis [place] catheter in place Tylenol 650mg po q6 PEG for fever temp > 100.4F Will follow up with Thursday WEEKLY labs Urinary Retention Take note condom cath not always securely in place so Is and Os are approximate as patient wets bed Flomax 0.4mg PEG daily Proscar 5mg PEG daily continue Bethanecol 50mg PEG TID- started after persistent retention and found to be effective. monitor I's and O's Check bladder scan for residual urine three times weekly Watery Stools Recent completion of Merrem, Amikacin C. diff negative Stool leukocytes negative stool culture (04/26/17) negative Respiratory failure Trach in place, continue daily monitoring for secretions. No change in management at this time. Continue with aggressive suctioning multiple times a day per respiratory therapist. Thick secretions Duoneb 3ml INH Q8 and Mucomyst 4ml INH Q6H Robitussin 100mg PEG Q12H Anoxic brain injury s/p cardiac arrest in 05/2015 no acute changes Pt has non spontaneous movements. continue current management. Continue tube feeds- 40cc/hr Florastor 250mg PO TID via PEG Sacral Ulcers- HEALED Cont with offloading/cushioning/turning Continue frequent turning, protective ointment and skin checks. Continue wound care Hx of CAD s/p cardiac stents on 06/13/15 Cont ASA 81mg via PEG daily Cont Coreg 3.125mg PEG BID Cont Plavix 75mg PO daily Seizures Cont Keppra 500mg PEG BID for seizure prophylaxis Monitor for activity Lower extremity edema Improved Monitor Prophylactic measure Pepcid 20 mg PEG BID Lovenox 40mg SC daily SCDs and offloading boots continue to turn and reposition q2hrs Feeds @ 40cc/hr Continue to monitor medication administrations and clinical presentation weekly labs <Donnell Ying M - Last Filed: 04/30/17 15:13> Objective - Vital Signs/Intake and Output Vital Signs (last 24 hours): Temp Pulse Resp BP Pulse Ox 98 F 79 20 112/68 97 04/30/17 07:29 04/30/17 07:29 04/30/17 07:29 04/30/17 07:29 04/30/17 07:29 Intake and Output: 04/30/17 04/30/17 06:59 18:59 Intake Total 1040 620 Output Total 1050 150 Balance -10 470 - Medications Medications: Current Medications Acetaminophen (Tylenol 650mg/20.3ml Solution Ud) 650 mg PEG Q6 PRN PRN Reason: Fever >100.4 F Last Admin: 04/07/17 02:45 Dose: 650 mg Acetylcysteine (Acetylcysteine 20%) 4 ml INH RQ6 [facility] Last Admin: 04/30/17 13:11 Dose: 4 ml Albuterol/Ipratropium (Duoneb 3 Mg/0.5 Mg (3 Ml) Ud) 3 ml INH RQ6 [facility] Last Admin: 04/30/17 13:11 Dose: 3 ml Aspirin (Aspirin Chewable) 81 mg PO DAILY [facility] Last Admin: 04/30/17 09:30 Dose: 81 mg Bethanechol Chloride (Urecholine) 50 mg PEG TID [facility] Last Admin: 04/30/17 09:31 Dose: 50 mg Carvedilol (Coreg) 3.125 mg PEG BID [facility] Last Admin: 04/30/17 09:31 Dose: 3.125 mg Clopidogrel Bisulfate (Plavix) 75 mg PO DAILY [facility] Last Admin: 04/30/17 09:30 Dose: 75 mg Enoxaparin Sodium (Lovenox) 40 mg SC DAILY [facility] Last Admin: 04/30/17 09:29 Dose: 40 mg Famotidine (Pepcid) 20 mg PEG BID [facility] Last Admin: 04/30/17 09:30 Dose: 20 mg Finasteride (Proscar) 5 mg PO DAILY [facility] Last Admin: 04/30/17 09:34 Dose: 5 mg Guaifenesin (Robitussin) 100 mg PEG Q12H [facility] Levetiracetam (Keppra) 500 mg PO BID [facility] Last Admin: 04/30/17 09:31 Dose: 500 mg Saccharomyces Boulardii (Florastor) 250 mg PO DAILY [facility] Last Admin: 04/30/17 09:30 Dose: 250 mg Tamsulosin HCl (Flomax) 0.4 mg PO DAILY [facility] Last Admin: 04/30/17 09:30 Dose: 0.4 mg - Labs Labs: 04/27/17 06:15 04/27/17 06:15 PT 10.6 SECONDS (9.7-12.2) 11/24/15 14:10 INR 1.0 11/24/15 14:10 APTT 25 SECONDS (21-34) 11/24/15 14:10 Attending/Attestation - Attestation I have personally seen and examined this patient.: Yes I have fully participated in the care of the patient.: Yes I have reviewed all pertinent clinical information, including history, physical exam and plan: Yes Notes (Text): 04/30/17 15:12 Patient was seen and examined at bedside with the resident We will continue current medical management I discussed the plan of care with the resident and agree with the above history and physical and assessment/plan.
[2017-04-30] MEDS: Enoxaparin 40 mg Syringe SC SCH (09:29)
[2017-04-30] MEDS: Saccharomyces Boulardi 250 mg Cap PO SCH (09:30)
[2017-04-30] MEDS: guaiFENesin 100 mg/5 ml Syrup UD PEG SCH ×2 (15:57→23:59)
[2017-05-01] MEDS: Acetylcysteine 20% Inhal Soln (4ml) INH SCH ×4 (01:38→19:16)
[2017-05-01] MEDS: Albuterol-Ipratrop 3 mg / 0.5 (3 ml) UD INH SCH ×4 (01:38→19:16)
--- NOTE | 2017-05-01 10:30 | CP.PCM.PN ---
<Judith Forrester DO - Last Filed: 05/01/17 10:47> Subjective - Date & Time of Evaluation Date of Evaluation: 05/01/17 Time of Evaluation: 07:45 - Subjective Subjective: PGy1 Progress Note for Dr. Ying: Patient seen and examined. Patient noted to have thick yellow secretions via trach collar this AM requiring suctioning. Not acute events overnight. ROS unobtainable due to patient condition. Objective - Vital Signs/Intake and Output Vital Signs (last 24 hours): Temp Pulse Resp BP Pulse Ox 98.7 F 72 20 127/76 99 05/01/17 08:00 05/01/17 08:00 05/01/17 08:00 05/01/17 08:00 05/01/17 08:00 Intake and Output: 05/01/17 05/01/17 06:59 18:59 Intake Total 520 Output Total 500 Balance 20 - Medications Medications: Current Medications Acetaminophen (Tylenol 650mg/20.3ml Solution Ud) 650 mg PEG Q6 PRN PRN Reason: Fever >100.4 F Last Admin: 04/07/17 02:45 Dose: 650 mg Acetylcysteine (Acetylcysteine 20%) 4 ml INH RQ6 [facility] Last Admin: 05/01/17 07:59 Dose: 4 ml Albuterol/Ipratropium (Duoneb 3 Mg/0.5 Mg (3 Ml) Ud) 3 ml INH RQ6 [facility] Last Admin: 05/01/17 07:59 Dose: 3 ml Aspirin (Aspirin Chewable) 81 mg PO DAILY [facility] Last Admin: 04/30/17 09:30 Dose: 81 mg Bethanechol Chloride (Urecholine) 50 mg PEG TID [facility] Last Admin: 04/30/17 18:14 Dose: 50 mg Carvedilol (Coreg) 3.125 mg PEG BID [facility] Last Admin: 04/30/17 18:14 Dose: 3.125 mg Clopidogrel Bisulfate (Plavix) 75 mg PO DAILY [facility] Last Admin: 04/30/17 09:30 Dose: 75 mg Enoxaparin Sodium (Lovenox) 40 mg SC DAILY [facility] Last Admin: 04/30/17 09:29 Dose: 40 mg Famotidine (Pepcid) 20 mg PEG BID [facility] Last Admin: 04/30/17 18:14 Dose: 20 mg Finasteride (Proscar) 5 mg PO DAILY [facility] Last Admin: 04/30/17 09:34 Dose: 5 mg Guaifenesin (Robitussin) 100 mg PEG Q12H [facility] Last Admin: 04/30/17 23:59 Dose: 100 mg Levetiracetam (Keppra) 500 mg PO BID [facility] Last Admin: 04/30/17 18:14 Dose: 500 mg Saccharomyces Boulardii (Florastor) 250 mg PO DAILY [facility] Last Admin: 04/30/17 09:30 Dose: 250 mg Tamsulosin HCl (Flomax) 0.4 mg PO DAILY [facility] Last Admin: 04/30/17 09:30 Dose: 0.4 mg - Labs Labs: 04/27/17 06:15 04/27/17 06:15 PT 10.6 SECONDS (9.7-12.2) 11/24/15 14:10 INR 1.0 11/24/15 14:10 APTT 25 SECONDS (21-34) 11/24/15 14:10 - Constitutional Appears: No Acute Distress, Chronically Ill - Head Exam Head Exam: ATRAUMATIC - Eye Exam Eye Exam: EOMI - ENT Exam ENT Exam: Mucous Membranes Moist Additional comments: trach collar in place with thick yellow secretions - Respiratory Exam Respiratory Exam: absent: Respiratory Distress Additional comments: coarse breath sounds from upper airway - Cardiovascular Exam Cardiovascular Exam: +S1, +S2 - GI/Abdominal Exam GI & Abdominal Exam: Soft, Normal Bowel Sounds Additional comments: PEG in place, clean, dry - Exam Additional comments: tex[place] catheter in place - Extremities Exam Extremities Exam: absent: Pedal Edema Additional comments: pressure offloading boots in place, SCDs, no edema - Neurological Exam Neurological Exam: Awake - Skin Skin Exam: Warm Assessment and Plan - Assessment and Plan (Free Text) Assessment: UTI Completed course of Amikacin and Meropenem. amikacin discontinued on 04/18 ( total 10), Meropenem (04/13) total 7 days Urine culture (04/06/17): + Proteus Mirabilis [place] catheter in place Tylenol 650mg po q6 PEG for fever temp > 100.4F Will follow up with Thursday WEEKLY labs Urinary Retention Take note condom cath not always securely in place so Is and Os are approximate as patient wets bed Flomax 0.4mg PEG daily Proscar 5mg PEG daily continue Bethanecol 50mg PEG TID- started after persistent retention and found to be effective. monitor I's and O's Check bladder scan for residual urine three times weekly Watery Stools Recent completion of Merrem, Amikacin C. diff negative Stool leukocytes negative stool culture (04/26/17) negative Respiratory failure Trach in place, continue daily monitoring for secretions. No change in management at this time. Continue with aggressive suctioning multiple times a day per respiratory therapist. Thick secretions Duoneb 3ml INH Q8 and Mucomyst 4ml INH Q6H Robitussin 100mg PEG Q12H Anoxic brain injury s/p cardiac arrest in 05/2015 no acute changes Pt has non spontaneous movements. continue current management. Continue tube feeds- 40cc/hr Florastor 250mg PO TID via PEG Sacral Ulcers- HEALED Cont with offloading/cushioning/turning Continue frequent turning, protective ointment and skin checks. Continue wound care Hx of CAD s/p cardiac stents on 06/13/15 Cont ASA 81mg via PEG daily Cont Coreg 3.125mg PEG BID Cont Plavix 75mg PO daily Seizures Cont Keppra 500mg PEG BID for seizure prophylaxis Monitor for activity Lower extremity edema Improved Monitor Prophylactic measure Pepcid 20 mg PEG BID Lovenox 40mg SC daily SCDs and offloading boots continue to turn and reposition q2hrs Feeds increased to 50cc/hr Continue to monitor medication administrations and clinical presentation weekly labs <Dnonell Ying M - Last Filed: 05/01/17 16:10> Objective - Vital Signs/Intake and Output Vital Signs (last 24 hours): Temp Pulse Resp BP Pulse Ox 98.7 F 72 20 127/76 99 05/01/17 08:00 05/01/17 08:00 05/01/17 08:00 05/01/17 08:00 05/01/17 08:00 Intake and Output: 05/01/17 05/01/17 06:59 18:59 Intake Total 520 550 Output Total 500 600 Balance 20 -50 - Medications Medications: Current Medications Acetaminophen (Tylenol 650mg/20.3ml Solution Ud) 650 mg PEG Q6 PRN PRN Reason: Fever >100.4 F Last Admin: 04/07/17 02:45 Dose: 650 mg Acetylcysteine (Acetylcysteine 20%) 4 ml INH RQ6 [facility] Last Admin: 05/01/17 13:13 Dose: 4 ml Albuterol/Ipratropium (Duoneb 3 Mg/0.5 Mg (3 Ml) Ud) 3 ml INH RQ6 [facility] Last Admin: 05/01/17 13:13 Dose: 3 ml Aspirin (Aspirin Chewable) 81 mg PO DAILY [facility] Last Admin: 05/01/17 10:45 Dose: 81 mg Bethanechol Chloride (Urecholine) 50 mg PEG TID [facility] Last Admin: 05/01/17 13:26 Dose: 50 mg Carvedilol (Coreg) 3.125 mg PEG BID [facility] Last Admin: 05/01/17 10:44 Dose: 3.125 mg Clopidogrel Bisulfate (Plavix) 75 mg PO DAILY [facility] Last Admin: 05/01/17 10:44 Dose: 75 mg Enoxaparin Sodium (Lovenox) 40 mg SC DAILY [facility] Last Admin: 05/01/17 10:44 Dose: 40 mg Famotidine (Pepcid) 20 mg PEG BID [facility] Last Admin: 05/01/17 10:44 Dose: 20 mg Finasteride (Proscar) 5 mg PO DAILY [facility] Last Admin: 05/01/17 10:45 Dose: 5 mg Guaifenesin (Robitussin) 100 mg PEG Q12H [facility] Last Admin: 05/01/17 11:11 Dose: 100 mg Levetiracetam (Keppra) 500 mg PO BID [facility] Last Admin: 05/01/17 10:44 Dose: 500 mg Saccharomyces Boulardii (Florastor) 250 mg PO DAILY [facility] Last Admin: 05/01/17 10:44 Dose: 250 mg Tamsulosin HCl (Flomax) 0.4 mg PO DAILY [facility] Last Admin: 05/01/17 10:44 Dose: 0.4 mg - Labs Labs: 04/27/17 06:15 04/27/17 06:15 PT 10.6 SECONDS (9.7-12.2) 11/24/15 14:10 INR 1.0 11/24/15 14:10 APTT 25 SECONDS (21-34) 11/24/15 14:10 Attending/Attestation - Attestation I have personally seen and examined this patient.: Yes I have fully participated in the care of the patient.: Yes I have reviewed all pertinent clinical information, including history, physical exam and plan: Yes Notes (Text): 05/01/17 16:09 Patient was seen and examined at bedside with the resident We will continue current medical management I discussed the plan of care with the resident and I agree with the above history and physical and assessment/plan by the resident.
[2017-05-01] MEDS: Enoxaparin 40 mg Syringe SC SCH (10:44)
[2017-05-01] MEDS: Saccharomyces Boulardi 250 mg Cap PO SCH (10:44)
[2017-05-01] MEDS: guaiFENesin 100 mg/5 ml Syrup UD PEG SCH ×2 (11:11→22:14)
[2017-05-02] MEDS: Acetylcysteine 20% Inhal Soln (4ml) INH SCH ×4 (01:44→20:30)
[2017-05-02] MEDS: Albuterol-Ipratrop 3 mg / 0.5 (3 ml) UD INH SCH ×4 (01:44→20:30)
--- NOTE | 2017-05-02 01:56 | CP.PCM.PN ---
<Saurabh Carmichael - Last Filed: 05/02/17 05:44> Subjective - Date & Time of Evaluation Date of Evaluation: 05/02/17 Time of Evaluation: 01:54 - Subjective Subjective: PGy1 Progress Note for Dr. Ying: Patient seen and examined. Nursing reports continued good urinary output since readdition of bethanechol. No acute events overnight. ROS unobtainable due to patient condition. Objective - Vital Signs/Intake and Output Vital Signs (last 24 hours): Temp Pulse Resp BP Pulse Ox 98.2 F 82 20 127/82 98 05/01/17 23:41 05/01/17 23:41 05/01/17 23:41 05/01/17 23:41 05/01/17 23:41 Intake and Output: 05/01/17 05/02/17 18:59 06:59 Intake Total 550 600 Output Total 600 600 Balance -50 0 - Medications Medications: Current Medications Acetaminophen (Tylenol 650mg/20.3ml Solution Ud) 650 mg PEG Q6 PRN PRN Reason: Fever >100.4 F Last Admin: 04/07/17 02:45 Dose: 650 mg Acetylcysteine (Acetylcysteine 20%) 4 ml INH RQ6 [facility] Last Admin: 05/02/17 01:44 Dose: 4 ml Albuterol/Ipratropium (Duoneb 3 Mg/0.5 Mg (3 Ml) Ud) 3 ml INH RQ6 [facility] Last Admin: 05/02/17 01:44 Dose: 3 ml Aspirin (Aspirin Chewable) 81 mg PO DAILY [facility] Last Admin: 05/01/17 10:45 Dose: 81 mg Bethanechol Chloride (Urecholine) 50 mg PEG TID [facility] Last Admin: 05/01/17 19:05 Dose: 50 mg Carvedilol (Coreg) 3.125 mg PEG BID [facility] Last Admin: 05/01/17 19:05 Dose: 3.125 mg Clopidogrel Bisulfate (Plavix) 75 mg PO DAILY [facility] Last Admin: 05/01/17 10:44 Dose: 75 mg Enoxaparin Sodium (Lovenox) 40 mg SC DAILY [facility] Last Admin: 05/01/17 10:44 Dose: 40 mg Famotidine (Pepcid) 20 mg PEG BID [facility] Last Admin: 05/01/17 19:05 Dose: 20 mg Finasteride (Proscar) 5 mg PO DAILY [facility] Last Admin: 05/01/17 10:45 Dose: 5 mg Guaifenesin (Robitussin) 100 mg PEG Q12H [facility] Last Admin: 05/01/17 22:14 Dose: 100 mg Levetiracetam (Keppra) 500 mg PO BID [facility] Last Admin: 05/01/17 19:05 Dose: 500 mg Saccharomyces Boulardii (Florastor) 250 mg PO DAILY [facility] Last Admin: 05/01/17 10:44 Dose: 250 mg Tamsulosin HCl (Flomax) 0.4 mg PO DAILY [facility] Last Admin: 05/01/17 10:44 Dose: 0.4 mg - Labs Labs: 04/27/17 06:15 04/27/17 06:15 PT 10.6 SECONDS (9.7-12.2) 11/24/15 14:10 INR 1.0 11/24/15 14:10 APTT 25 SECONDS (21-34) 11/24/15 14:10 - Additional Findings Additional findings: - Constitutional Appears: No Acute Distress, Chronically Ill - Head Exam Head Exam: ATRAUMATIC - Eye Exam Eye Exam: EOMI - ENT Exam ENT Exam: Mucous Membranes Moist Additional comments: trach collar in place with thick yellow secretions - Respiratory Exam Respiratory Exam: absent: Respiratory Distress Additional comments: coarse breath sounds from upper airway - Cardiovascular Exam Cardiovascular Exam: +S1, +S2 - GI/Abdominal Exam GI & Abdominal Exam: Soft, Normal Bowel Sounds Additional comments: PEG in place, clean, dry - Exam Additional comments: [place] catheter in place - Extremities Exam Extremities Exam: absent: Pedal Edema Additional comments: pressure offloading boots in place, SCDs, no edema - Neurological Exam Neurological Exam: Awake - Skin Skin Exam: Warm Assessment and Plan - Assessment and Plan (Free Text) Plan: UTI Completed course of Amikacin and Meropenem. amikacin discontinued on 04/18 ( total 10), Meropenem (04/13) total 7 days Urine culture (04/06/17): + Proteus Mirabilis [place] catheter in place Tylenol 650mg po q6 PEG for fever temp > 100.4F Will follow up with Thursday WEEKLY labs Urinary Retention Take note condom cath not always securely in place so Is and Os are approximate as patient wets bed Flomax 0.4mg PEG daily Proscar 5mg PEG daily continue Bethanecol 50mg PEG TID- started after persistent retention and found to be effective. monitor I's and O's Check bladder scan for residual urine three times weekly Watery Stools Recent completion of Merrem, Amikacin C. diff negative Stool leukocytes negative stool culture (04/26/17) negative Respiratory failure Trach in place, continue daily monitoring for secretions. No change in management at this time. Continue with aggressive suctioning multiple times a day per respiratory therapist. Thick secretions Duoneb 3ml INH Q8 and Mucomyst 4ml INH Q6H Robitussin 100mg PEG Q12H Anoxic brain injury s/p cardiac arrest in 05/2015 no acute changes Pt has non spontaneous movements. continue current management. Continue tube feeds- 40cc/hr Florastor 250mg PO TID via PEG Sacral Ulcers- HEALED Cont with offloading/cushioning/turning Continue frequent turning, protective ointment and skin checks. Continue wound care Hx of CAD s/p cardiac stents on 06/13/15 Cont ASA 81mg via PEG daily Cont Coreg 3.125mg PEG BID Cont Plavix 75mg PO daily Seizures Cont Keppra 500mg PEG BID for seizure prophylaxis Monitor for activity Lower extremity edema Improved Monitor Prophylactic measure Pepcid 20 mg PEG BID Lovenox 40mg SC daily SCDs and offloading boots continue to turn and reposition q2hrs Feeds increased to 50cc/hr Continue to monitor medication administrations and clinical presentation weekly labs <Donnell Ying - Last Filed: 05/02/17 15:55> Objective - Vital Signs/Intake and Output Vital Signs (last 24 hours): Temp Pulse Resp BP Pulse Ox 99.7 F H 82 20 106/72 96 05/02/17 08:35 05/02/17 08:35 05/02/17 08:35 05/02/17 08:35 05/02/17 08:35 Intake and Output: 05/02/17 05/02/17 06:59 18:59 Intake Total 600 1150 Output Total 600 400 Balance 0 750 - Medications Medications: Current Medications Acetaminophen (Tylenol 650mg/20.3ml Solution Ud) 650 mg PEG Q6 PRN PRN Reason: Fever >100.4 F Last Admin: 04/07/17 02:45 Dose: 650 mg Acetylcysteine (Acetylcysteine 20%) 4 ml INH RQ6 [facility] Last Admin: 05/02/17 13:25 Dose: 4 ml Albuterol/Ipratropium (Duoneb 3 Mg/0.5 Mg (3 Ml) Ud) 3 ml INH RQ6 [facility] Last Admin: 05/02/17 13:25 Dose: 3 ml Aspirin (Aspirin Chewable) 81 mg PO DAILY [facility] Last Admin: 05/02/17 10:54 Dose: 81 mg Bethanechol Chloride (Urecholine) 50 mg PEG TID [facility] Last Admin: 05/02/17 14:32 Dose: 50 mg Carvedilol (Coreg) 3.125 mg PEG BID [facility] Last Admin: 05/02/17 10:53 Dose: 3.125 mg Clopidogrel Bisulfate (Plavix) 75 mg PO DAILY [facility] Last Admin: 05/02/17 10:53 Dose: 75 mg Enoxaparin Sodium (Lovenox) 40 mg SC DAILY [facility] Last Admin: 05/02/17 10:54 Dose: 40 mg Famotidine (Pepcid) 20 mg PEG BID [facility] Last Admin: 05/02/17 10:53 Dose: 20 mg Finasteride (Proscar) 5 mg PO DAILY [facility] Last Admin: 05/02/17 10:55 Dose: 5 mg Guaifenesin (Robitussin) 100 mg PEG Q12H [facility] Last Admin: 05/02/17 14:32 Dose: 100 mg Levetiracetam (Keppra) 500 mg PO BID [facility] Last Admin: 05/02/17 10:53 Dose: 500 mg Saccharomyces Boulardii (Florastor) 250 mg PO DAILY [facility] Last Admin: 05/02/17 10:53 Dose: 250 mg Tamsulosin HCl (Flomax) 0.4 mg PO DAILY [facility] Last Admin: 05/02/17 10:53 Dose: 0.4 mg - Labs Labs: 04/27/17 06:15 04/27/17 06:15 PT 10.6 SECONDS (9.7-12.2) 11/24/15 14:10 INR 1.0 11/24/15 14:10 APTT 25 SECONDS (21-34) 11/24/15 14:10 Attending/Attestation - Attestation I have personally seen and examined this patient.: Yes I have fully participated in the care of the patient.: Yes I have reviewed all pertinent clinical information, including history, physical exam and plan: Yes Notes (Text): 05/02/17 15:55 Patient was seen and examined at bedside with the resident Continue current medical management I agree with the history and physical and assessment/plan but the resident.
[2017-05-02] MEDS: Saccharomyces Boulardi 250 mg Cap PO SCH (10:53)
[2017-05-02] MEDS: Enoxaparin 40 mg Syringe SC SCH (10:54)
[2017-05-02] MEDS: guaiFENesin 100 mg/5 ml Syrup UD PEG SCH ×2 (14:32→22:16)
--- NOTE | 2017-05-03 00:17 | CP.PCM.PN ---
<Saurabh Carmichael - Last Filed: 05/03/17 00:19> Subjective - Date & Time of Evaluation Date of Evaluation: 05/03/17 Time of Evaluation: 00:14 - Subjective Subjective: PGY1 Progress Note for Dr. Ying: Patient seen and examined. No acute events overnight per nursing. Patient has nonspontaneous, non directed movements. ROS unobtainable due to patient condition. Objective - Vital Signs/Intake and Output Vital Signs (last 24 hours): Temp Pulse Resp BP Pulse Ox 98.6 F 74 20 99/71 L 97 05/02/17 15:00 05/02/17 15:00 05/02/17 15:00 05/02/17 15:00 05/02/17 15:00 Intake and Output: 05/02/17 05/03/17 18:59 06:59 Intake Total 1150 800 Output Total 400 300 Balance 750 500 - Medications Medications: Current Medications Acetaminophen (Tylenol 650mg/20.3ml Solution Ud) 650 mg PEG Q6 PRN PRN Reason: Fever >100.4 F Last Admin: 04/07/17 02:45 Dose: 650 mg Acetylcysteine (Acetylcysteine 20%) 4 ml INH RQ6 [facility] Last Admin: 05/02/17 20:30 Dose: 4 ml Albuterol/Ipratropium (Duoneb 3 Mg/0.5 Mg (3 Ml) Ud) 3 ml INH RQ6 [facility] Last Admin: 05/02/17 20:30 Dose: 3 ml Aspirin (Aspirin Chewable) 81 mg PO DAILY [facility] Last Admin: 05/02/17 10:54 Dose: 81 mg Bethanechol Chloride (Urecholine) 50 mg PEG TID [facility] Last Admin: 05/02/17 17:13 Dose: 50 mg Carvedilol (Coreg) 3.125 mg PEG BID [facility] Last Admin: 05/02/17 17:13 Dose: 3.125 mg Clopidogrel Bisulfate (Plavix) 75 mg PO DAILY [facility] Last Admin: 05/02/17 10:53 Dose: 75 mg Enoxaparin Sodium (Lovenox) 40 mg SC DAILY [facility] Last Admin: 05/02/17 10:54 Dose: 40 mg Famotidine (Pepcid) 20 mg PEG BID [facility] Last Admin: 05/02/17 17:13 Dose: 20 mg Finasteride (Proscar) 5 mg PO DAILY [facility] Last Admin: 05/02/17 10:55 Dose: 5 mg Guaifenesin (Robitussin) 100 mg PEG Q12H [facility] Last Admin: 05/02/17 22:16 Dose: 100 mg Levetiracetam (Keppra) 500 mg PO BID [facility] Last Admin: 05/02/17 17:13 Dose: 500 mg Saccharomyces Boulardii (Florastor) 250 mg PO DAILY [facility] Last Admin: 05/02/17 10:53 Dose: 250 mg Tamsulosin HCl (Flomax) 0.4 mg PO DAILY [facility] Last Admin: 05/02/17 10:53 Dose: 0.4 mg - Labs Labs: 04/27/17 06:15 04/27/17 06:15 PT 10.6 SECONDS (9.7-12.2) 11/24/15 14:10 INR 1.0 11/24/15 14:10 APTT 25 SECONDS (21-34) 11/24/15 14:10 - Additional Findings Additional findings: - Constitutional Appears: No Acute Distress, Chronically Ill - Head Exam Head Exam: ATRAUMATIC - Eye Exam Eye Exam: EOMI - ENT Exam ENT Exam: Mucous Membranes Moist Additional comments: trach collar in place with thick yellow secretions - Respiratory Exam Respiratory Exam: absent: Respiratory Distress Additional comments: coarse breath sounds from upper airway - Cardiovascular Exam Cardiovascular Exam: +S1, +S2 - GI/Abdominal Exam GI & Abdominal Exam: Soft, Normal Bowel Sounds Additional comments: PEG in place, clean, dry - Exam Additional comments: [place] catheter in place - Extremities Exam Extremities Exam: absent: Pedal Edema Additional comments: pressure offloading boots in place, SCDs, no edema - Neurological Exam Neurological Exam: Awake - Skin Skin Exam: Warm Assessment and Plan - Assessment and Plan (Free Text) Plan: UTI Completed course of Amikacin and Meropenem. amikacin discontinued on 04/18 ( total 10), Meropenem (04/13) total 7 days Urine culture (04/06/17): + Proteus Mirabilis [place] catheter in place Tylenol 650mg po q6 PEG for fever temp > 100.4F Will follow up with Thursday WEEKLY labs Urinary Retention Take note condom cath not always securely in place so Is and Os are approximate as patient wets bed Flomax 0.4mg PEG daily Proscar 5mg PEG daily continue Bethanecol 50mg PEG TID- started after persistent retention and found to be effective. monitor I's and O's Check bladder scan for residual urine three times weekly Watery Stools Recent completion of Merrem, Amikacin C. diff negative Stool leukocytes negative stool culture (04/26/17) negative Respiratory failure Trach in place, continue daily monitoring for secretions. No change in management at this time. Continue with aggressive suctioning multiple times a day per respiratory therapist. Thick secretions Duoneb 3ml INH Q8 and Mucomyst 4ml INH Q6H Robitussin 100mg PEG Q12H Anoxic brain injury s/p cardiac arrest in 05/2015 no acute changes Pt has non spontaneous movements. continue current management. Continue tube feeds- 40cc/hr Florastor 250mg PO TID via PEG Sacral Ulcers- HEALED Cont with offloading/cushioning/turning Continue frequent turning, protective ointment and skin checks. Continue wound care Hx of CAD s/p cardiac stents on 06/13/15 Cont ASA 81mg via PEG daily Cont Coreg 3.125mg PEG BID Cont Plavix 75mg PO daily Seizures Cont Keppra 500mg PEG BID for seizure prophylaxis Monitor for activity Lower extremity edema Improved Monitor Prophylactic measure Pepcid 20 mg PEG BID Lovenox 40mg SC daily SCDs and offloading boots continue to turn and reposition q2hrs Feeds increased to 50cc/hr Continue to monitor medication administrations and clinical presentation weekly labs <Donnell Ying - Last Filed: 05/03/17 14:21> Objective - Vital Signs/Intake and Output Vital Signs (last 24 hours): Temp Pulse Resp BP Pulse Ox 98.4 F 92 H 20 106/69 96 05/03/17 08:18 05/03/17 08:18 05/03/17 08:18 05/03/17 08:18 05/03/17 08:18 Intake and Output: 05/03/17 05/03/17 06:59 18:59 Intake Total 1300 Output Total 700 Balance 600 - Medications Medications: Current Medications Acetaminophen (Tylenol 650mg/20.3ml Solution Ud) 650 mg PEG Q6 PRN PRN Reason: Fever >100.4 F Last Admin: 04/07/17 02:45 Dose: 650 mg Acetylcysteine (Acetylcysteine 20%) 4 ml INH RQ6 [facility] Last Admin: 05/03/17 13:25 Dose: 4 ml Albuterol/Ipratropium (Duoneb 3 Mg/0.5 Mg (3 Ml) Ud) 3 ml INH RQ6 [facility] Last Admin: 05/03/17 13:25 Dose: 3 ml Aspirin (Aspirin Chewable) 81 mg PO DAILY [facility] Last Admin: 05/03/17 11:02 Dose: 81 mg Bethanechol Chloride (Urecholine) 50 mg PEG TID [facility] Last Admin: 05/03/17 13:40 Dose: 50 mg Carvedilol (Coreg) 3.125 mg PEG BID [facility] Last Admin: 05/03/17 11:03 Dose: 3.125 mg Clopidogrel Bisulfate (Plavix) 75 mg PO DAILY [facility] Last Admin: 05/03/17 11:02 Dose: 75 mg Enoxaparin Sodium (Lovenox) 40 mg SC DAILY [facility] Last Admin: 05/03/17 11:02 Dose: 40 mg Famotidine (Pepcid) 20 mg PEG BID [facility] Last Admin: 05/03/17 11:02 Dose: 20 mg Finasteride (Proscar) 5 mg PO DAILY [facility] Last Admin: 05/03/17 11:03 Dose: 5 mg Guaifenesin (Robitussin) 100 mg PEG Q12H [facility] Last Admin: 05/03/17 11:06 Dose: 100 mg Levetiracetam (Keppra) 500 mg PO BID [facility] Last Admin: 05/03/17 11:02 Dose: 500 mg Saccharomyces Boulardii (Florastor) 250 mg PO DAILY [facility] Last Admin: 05/03/17 11:02 Dose: 250 mg Tamsulosin HCl (Flomax) 0.4 mg PO DAILY [facility] Last Admin: 05/03/17 11:02 Dose: 0.4 mg - Labs Labs: 04/27/17 06:15 04/27/17 06:15 PT 10.6 SECONDS (9.7-12.2) 11/24/15 14:10 INR 1.0 11/24/15 14:10 APTT 25 SECONDS (21-34) 11/24/15 14:10 Attending/Attestation - Attestation I have personally seen and examined this patient.: Yes I have fully participated in the care of the patient.: Yes I have reviewed all pertinent clinical information, including history, physical exam and plan: Yes Notes (Text): 05/03/17 14:21 Patient was seen and examined at bedside with the resident Issues clinical condition is unchanged We will continue current management Awaiting placement I agree with the above history and physical and assessment/plan by the resident.
[2017-05-03] MEDS: Albuterol-Ipratrop 3 mg / 0.5 (3 ml) UD INH SCH ×4 (01:35→20:10)
[2017-05-03] MEDS: Acetylcysteine 20% Inhal Soln (4ml) INH SCH ×4 (01:35→20:09)
[2017-05-03] MEDS: Enoxaparin 40 mg Syringe SC SCH (11:02)
[2017-05-03] MEDS: Saccharomyces Boulardi 250 mg Cap PO SCH (11:02)
[2017-05-03] MEDS: guaiFENesin 100 mg/5 ml Syrup UD PEG SCH ×2 (11:06→22:18)
[2017-05-04] MEDS: Acetylcysteine 20% Inhal Soln (4ml) INH SCH ×4 (01:41→20:15)
[2017-05-04] MEDS: Albuterol-Ipratrop 3 mg / 0.5 (3 ml) UD INH SCH ×4 (01:41→20:14)
[2017-05-04 06:15] LABS: BASO # 0.1 K/uL (0.0-0.2); BASO % 0.6 % (0.0-2.0); EOS # 0.5 K/uL (0.0-0.7); EOS % 3.8 % (0.0-4.0); HEMOGLOBIN 10.3 g/dL (12.0-18.0); LYMPH # 1.6 K/uL (1.0-4.3); LYMPH % 11.9 % (20.0-40.0); MEAN CELL VOLUME 88.3 fL (80.0-94.0); MEAN CORPUSCULAR HEMOGLOBIN 28.2 pg (27.0-31.0); MEAN CORPUSCULAR HGB CONC 31.9 g/dL (33.0-37.0); MEAN PLATELET VOLUME 8.7 fL (7.2-11.7); MONO # 0.7 K/uL (0.0-0.8); MONO % 4.9 % (0.0-10.0); NEUT # 10.6 K/uL (1.8-7.0); NEUT % 78.8 % (50.0-75.0); RBC 3.66 Mil/uL (4.40-5.90); RED CELL DISTRIBUTION WIDTH 15.4 % (11.5-14.5); WHITE BLOOD COUNT 13.5 K/uL (4.8-10.8)
[2017-05-04 06:47] LABS: ALBUMIN 3.2 g/dL (3.5-5.0)
[2017-05-04 06:49] LABS: GFR NON-AFRICAN AMERICAN > 60
[2017-05-04 06:50] LABS: ALB/GLOB RATIO 0.7 (1.0-2.1); ALT/SGPT 33 U/L (21-72); AST/SGOT 19 U/L (17-59); BLOOD UREA NITROGEN 16 mg/dL (9-20)
[2017-05-04 06:51] LABS: CALCIUM 8.3 mg/dl (8.6-10.4)
--- NOTE | 2017-05-04 09:20 | CP.PCM.PN ---
<Judith Forrester DO - Last Filed: 05/04/17 10:33> Subjective - Date & Time of Evaluation Date of Evaluation: 05/04/17 Time of Evaluation: 07:20 - Subjective Subjective: PGY1 progress note for Dr. Chavis: Patient seen and examined. Patient resting comfortably, no acute events overnight per nursing. Objective - Vital Signs/Intake and Output Vital Signs (last 24 hours): Temp Pulse Resp BP Pulse Ox 98.7 F 93 H 20 108/72 99 05/04/17 07:35 05/04/17 07:35 05/04/17 07:35 05/04/17 07:35 05/04/17 07:35 Intake and Output: 05/04/17 05/04/17 06:59 18:59 Intake Total 1150 600 Output Total 1000 100 Balance 150 500 - Medications Medications: Current Medications Acetaminophen (Tylenol 650mg/20.3ml Solution Ud) 650 mg PEG Q6 PRN PRN Reason: Fever >100.4 F Last Admin: 04/07/17 02:45 Dose: 650 mg Acetylcysteine (Acetylcysteine 20%) 4 ml INH RQ6 [facility] Last Admin: 05/04/17 07:20 Dose: 4 ml Albuterol/Ipratropium (Duoneb 3 Mg/0.5 Mg (3 Ml) Ud) 3 ml INH RQ6 [facility] Last Admin: 05/04/17 07:20 Dose: 3 ml Aspirin (Aspirin Chewable) 81 mg PO DAILY [facility] Last Admin: 05/03/17 11:02 Dose: 81 mg Bethanechol Chloride (Urecholine) 50 mg PEG TID [facility] Last Admin: 05/03/17 18:21 Dose: 50 mg Carvedilol (Coreg) 3.125 mg PEG BID [facility] Last Admin: 05/03/17 18:22 Dose: 3.125 mg Clopidogrel Bisulfate (Plavix) 75 mg PO DAILY [facility] Last Admin: 05/03/17 11:02 Dose: 75 mg Enoxaparin Sodium (Lovenox) 40 mg SC DAILY [facility] Last Admin: 05/03/17 11:02 Dose: 40 mg Famotidine (Pepcid) 20 mg PEG BID [facility] Last Admin: 05/03/17 18:21 Dose: 20 mg Finasteride (Proscar) 5 mg PO DAILY [facility] Last Admin: 05/03/17 11:03 Dose: 5 mg Guaifenesin (Robitussin) 100 mg PEG Q12H [facility] Last Admin: 05/03/17 22:18 Dose: 100 mg Levetiracetam (Keppra) 500 mg PO BID [facility] Last Admin: 05/03/17 18:22 Dose: 500 mg Saccharomyces Boulardii (Florastor) 250 mg PO DAILY [facility] Last Admin: 05/03/17 11:02 Dose: 250 mg Scopolamine (Transderm-Scop) 1 patch TD Q3D [facility] Last Admin: 05/03/17 20:46 Dose: 1 patch Tamsulosin HCl (Flomax) 0.4 mg PO DAILY [facility] Last Admin: 05/03/17 11:02 Dose: 0.4 mg - Labs Labs: 05/04/17 06:03 05/04/17 06:03 PT 10.6 SECONDS (9.7-12.2) 11/24/15 14:10 INR 1.0 11/24/15 14:10 APTT 25 SECONDS (21-34) 11/24/15 14:10 - Constitutional Appears: No Acute Distress, Chronically Ill - Head Exam Head Exam: ATRAUMATIC - Eye Exam Eye Exam: EOMI - ENT Exam ENT Exam: Mucous Membranes Moist Additional comments: trach collar with thick yellow secretions - Respiratory Exam Respiratory Exam: NORMAL BREATHING PATTERN. absent: Rales, Rhonchi, Wheezes - Cardiovascular Exam Cardiovascular Exam: +S1, +S2 - GI/Abdominal Exam GI & Abdominal Exam: Soft, Normal Bowel Sounds Additional comments: PEG site clean and dry - Exam Additional comments: condom catheter in place - Extremities Exam Extremities Exam: absent: Pedal Edema Additional comments: heel protectors and SCDs in place - Neurological Exam Neurological Exam: Awake - Skin Skin Exam: Warm Assessment and Plan - Assessment and Plan (Free Text) Assessment: UTI patient afebrile, WBC mildly elevated 13.5 Completed course of Amikacin and Meropenem. amikacin discontinued on 04/18 ( total 10), Meropenem (04/13) total 7 days Urine culture (04/06/17): + Proteus Mirabilis [place] catheter in place Tylenol 650mg po q6 PEG for fever temp > 100.4F Will follow up with Thursday WEEKLY labs Urinary Retention Take note condom cath not always securely in place so Is and Os are approximate as patient wets bed Flomax 0.4mg PEG daily Proscar 5mg PEG daily continue Bethanecol 50mg PEG TID- started after persistent retention and found to be effective. monitor I's and O's Check bladder scan for residual urine three times weekly Watery Stools Recent completion of Merrem, Amikacin C. diff negative Stool leukocytes negative stool culture (04/26/17) negative Respiratory failure Trach in place, continue daily monitoring for secretions. No change in management at this time. Continue with aggressive suctioning multiple times a day per respiratory therapist. Thick secretions Duoneb 3ml INH Q8 and Mucomyst 4ml INH Q6H Robitussin 100mg PEG Q12H Anoxic brain injury s/p cardiac arrest in 05/2015 no acute changes Pt has non spontaneous movements. continue current management. Continue tube feeds- 50cc/hr Florastor 250mg PO TID via PEG Sacral Ulcers- HEALED Cont with offloading/cushioning/turning Continue frequent turning, protective ointment and skin checks. Continue wound care Hx of CAD s/p cardiac stents on 06/13/15 Cont ASA 81mg via PEG daily Cont Coreg 3.125mg PEG BID Cont Plavix 75mg PO daily Seizures Cont Keppra 500mg PEG BID for seizure prophylaxis Monitor for activity Lower extremity edema Improved Monitor Prophylactic measure Pepcid 20 mg PEG BID Lovenox 40mg SC daily SCDs and offloading boots continue to turn and reposition q2hrs Feeds increased to 50cc/hr Continue to monitor medication administrations and clinical presentation weekly labs <Amandeep Chavis H - Last Filed: 05/04/17 15:41> Objective - Vital Signs/Intake and Output Vital Signs (last 24 hours): Temp Pulse Resp BP Pulse Ox 98.7 F 93 H 20 108/72 99 05/04/17 07:35 05/04/17 07:35 05/04/17 07:35 05/04/17 07:35 05/04/17 07:35 Intake and Output: 05/04/17 05/04/17 06:59 18:59 Intake Total 1150 600 Output Total 1000 100 Balance 150 500 - Medications Medications: Current Medications Acetaminophen (Tylenol 650mg/20.3ml Solution Ud) 650 mg PEG Q6 PRN PRN Reason: Fever >100.4 F Last Admin: 05/16/17 02:45 Dose: 650 mg Acetylcysteine (Acetylcysteine 20%) 4 ml INH RQ6 [facility] Last Admin: 05/04/17 13:36 Dose: 4 ml Albuterol/Ipratropium (Duoneb 3 Mg/0.5 Mg (3 Ml) Ud) 3 ml INH RQ6 [facility] Last Admin: 05/04/17 13:36 Dose: 3 ml Aspirin (Aspirin Chewable) 81 mg PO DAILY [facility] Last Admin: 05/04/17 09:47 Dose: 81 mg Bethanechol Chloride (Urecholine) 50 mg PEG TID [facility] Last Admin: 05/04/17 13:07 Dose: 50 mg Carvedilol (Coreg) 3.125 mg PEG BID [facility] Last Admin: 05/04/17 09:48 Dose: Not Given Clopidogrel Bisulfate (Plavix) 75 mg PO DAILY [facility] Last Admin: 05/04/17 09:47 Dose: 75 mg Enoxaparin Sodium (Lovenox) 40 mg SC DAILY [facility] Last Admin: 05/04/17 09:47 Dose: 40 mg Famotidine (Pepcid) 20 mg PEG BID [facility] Last Admin: 05/04/17 09:47 Dose: 20 mg Finasteride (Proscar) 5 mg PO DAILY [facility] Last Admin: 05/04/17 09:47 Dose: 5 mg Guaifenesin (Robitussin) 100 mg PEG Q12H [facility] Last Admin: 05/04/17 11:01 Dose: Not Given Levetiracetam (Keppra) 500 mg PO BID [facility] Last Admin: 05/04/17 09:48 Dose: 500 mg Saccharomyces Boulardii (Florastor) 250 mg PO DAILY [facility] Last Admin: 05/04/17 09:47 Dose: 250 mg Tamsulosin HCl (Flomax) 0.4 mg PO DAILY [facility] Last Admin: 05/04/17 09:47 Dose: 0.4 mg - Labs Labs: 05/04/17 06:03 05/04/17 06:03 PT 10.6 SECONDS (9.7-12.2) 11/24/15 14:10 INR 1.0 11/24/15 14:10 APTT 25 SECONDS (21-34) 11/24/15 14:10 Assessment and Plan (1) Prophylactic measure Status: Acute (2) Anoxic encephalopathy Status: Acute (3) STEMI (ST elevation myocardial infarction) Status: Acute (4) Cardiac arrest Status: Acute (5) Seizures Status: Acute (6) Respiratory failure Status: Acute Attending/Attestation - Attestation I have personally seen and examined this patient.: Yes I have fully participated in the care of the patient.: Yes I have reviewed all pertinent clinical information, including history, physical exam and plan: Yes
[2017-05-04] MEDS: Saccharomyces Boulardi 250 mg Cap PO SCH (09:47)
[2017-05-04] MEDS: Enoxaparin 40 mg Syringe SC SCH (09:47)
[2017-05-04] MEDS: guaiFENesin 100 mg/5 ml Syrup UD PEG SCH ×2 (09:48→11:01)
[2017-05-05] MEDS: Albuterol-Ipratrop 3 mg / 0.5 (3 ml) UD INH SCH ×4 (02:12→20:08)
[2017-05-05] MEDS: Acetylcysteine 20% Inhal Soln (4ml) INH SCH ×4 (02:12→20:08)
--- NOTE | 2017-05-05 10:06 | CP.PCM.PN ---
<Judith Forrester DO - Last Filed: 05/05/17 10:03> Subjective - Date & Time of Evaluation Date of Evaluation: 05/05/17 Time of Evaluation: 07:35 - Subjective Subjective: PGY1 progress note for Dr. Chavis Patient seen and examined. Patient resting comfortably, no acute events overnight per nursing. ROS unobtainable. Objective - Vital Signs/Intake and Output Vital Signs (last 24 hours): Temp Pulse Resp BP Pulse Ox 98.2 F 78 20 110/64 99 05/05/17 08:00 05/05/17 08:00 05/05/17 08:00 05/05/17 08:00 05/05/17 08:00 Intake and Output: 05/05/17 05/05/17 06:59 18:59 Intake Total 600 600 Output Total 400 350 Balance 200 250 - Medications Medications: Current Medications Acetaminophen (Tylenol 650mg/20.3ml Solution Ud) 650 mg PEG Q6 PRN PRN Reason: Fever >100.4 F Last Admin: 04/07/17 02:45 Dose: 650 mg Acetylcysteine (Acetylcysteine 20%) 4 ml INH RQ6 [facility] Last Admin: 05/05/17 08:55 Dose: 4 ml Albuterol/Ipratropium (Duoneb 3 Mg/0.5 Mg (3 Ml) Ud) 3 ml INH RQ6 [facility] Last Admin: 05/05/17 08:55 Dose: 3 ml Aspirin (Aspirin Chewable) 81 mg PO DAILY [facility] Last Admin: 05/04/17 09:47 Dose: 81 mg Bethanechol Chloride (Urecholine) 50 mg PEG TID [facility] Last Admin: 05/04/17 18:10 Dose: 50 mg Carvedilol (Coreg) 3.125 mg PEG BID [facility] Last Admin: 05/04/17 22:45 Dose: 3.125 mg Clopidogrel Bisulfate (Plavix) 75 mg PO DAILY [facility] Last Admin: 05/04/17 09:47 Dose: 75 mg Enoxaparin Sodium (Lovenox) 40 mg SC DAILY [facility] Last Admin: 05/04/17 09:47 Dose: 40 mg Famotidine (Pepcid) 20 mg PEG BID [facility] Last Admin: 05/04/17 18:10 Dose: 20 mg Finasteride (Proscar) 5 mg PO DAILY [facility] Last Admin: 05/04/17 09:47 Dose: 5 mg Guaifenesin (Robitussin) 100 mg PEG Q12H [facility] Last Admin: 05/04/17 11:01 Dose: Not Given Levetiracetam (Keppra) 500 mg PO BID [facility] Last Admin: 05/04/17 18:10 Dose: 500 mg Saccharomyces Boulardii (Florastor) 250 mg PO DAILY [facility] Last Admin: 05/04/17 09:47 Dose: 250 mg Tamsulosin HCl (Flomax) 0.4 mg PO DAILY [facility] Last Admin: 05/04/17 09:47 Dose: 0.4 mg - Labs Labs: 05/04/17 06:03 05/04/17 06:03 PT 10.6 SECONDS (9.7-12.2) 11/24/15 14:10 INR 1.0 11/24/15 14:10 APTT 25 SECONDS (21-34) 11/24/15 14:10 - Constitutional Appears: Non-toxic, No Acute Distress, Chronically Ill - Head Exam Head Exam: ATRAUMATIC - Eye Exam Eye Exam: EOMI - ENT Exam ENT Exam: Mucous Membranes Moist Additional comments: trach collar with small amount yellow secretions - Respiratory Exam Respiratory Exam: Clear to Ausculation Bilateral, NORMAL BREATHING PATTERN - Cardiovascular Exam Cardiovascular Exam: +S1, +S2 - GI/Abdominal Exam GI & Abdominal Exam: Soft, Normal Bowel Sounds Additional comments: PEG site with small amount of discharge - Exam Additional comments: condom catheter in place - Extremities Exam Extremities Exam: absent: Pedal Edema Additional comments: SCDs and heel protectors in place - Back Exam Additional comments: small area of pink skin in superior gluteal cleft, no skin breaks, barrier cream in place - Neurological Exam Neurological Exam: Awake - Skin Skin Exam: Warm Assessment and Plan - Assessment and Plan (Free Text) Assessment: UTI patient afebrile, WBC mildly elevated 13.5 Completed course of Amikacin and Meropenem. amikacin discontinued on 04/18 ( total 10), Meropenem (04/13) total 7 days Urine culture (04/06/17): + Proteus Mirabilis [place] catheter in place Tylenol 650mg po q6 PEG for fever temp > 100.4F Will follow up with Thursday WEEKLY labs Urinary Retention Take note condom cath not always securely in place so Is and Os are approximate as patient wets bed Flomax 0.4mg PEG daily Proscar 5mg PEG daily continue Bethanecol 50mg PEG TID- started after persistent retention and found to be effective. monitor I's and O's Check bladder scan for residual urine three times weekly Watery Stools Recent completion of Merrem, Amikacin C. diff negative Stool leukocytes negative stool culture (04/26/17) negative Respiratory failure Trach in place, continue daily monitoring for secretions. No change in management at this time. Continue with aggressive suctioning multiple times a day per respiratory therapist. Thick secretions Duoneb 3ml INH Q8 and Mucomyst 4ml INH Q6H Robitussin 100mg PEG Q12H Anoxic brain injury s/p cardiac arrest in 05/2015 no acute changes Pt has non spontaneous movements. continue current management. Continue tube feeds- 50cc/hr, goal of 60 Florastor 250mg PO TID via PEG Sacral Ulcers- HEALED Cont with offloading/cushioning/turning Continue frequent turning, protective ointment and skin checks. Continue wound care Hx of CAD s/p cardiac stents on 06/13/15 Cont ASA 81mg via PEG daily Cont Coreg 3.125mg PEG BID Cont Plavix 75mg PO daily Seizures Cont Keppra 500mg PEG BID for seizure prophylaxis Monitor for activity Lower extremity edema Improved Monitor Prophylactic measure Pepcid 20 mg PEG BID Lovenox 40mg SC daily SCDs and offloading boots continue to turn and reposition q2hrs Feeds increased to 50cc/hr. Per pai gow dealer (05/02/17): tube feed goal: Isosource 1.5 @ 60cc/h Continue to monitor medication administrations and clinical presentation weekly labs <Amandeep Chavis H - Last Filed: 05/05/17 14:26> Objective - Vital Signs/Intake and Output Vital Signs (last 24 hours): Temp Pulse Resp BP Pulse Ox 98.2 F 78 20 110/64 99 05/05/17 08:00 05/05/17 08:00 05/05/17 08:00 05/05/17 08:00 05/05/17 08:00 Intake and Output: 05/05/17 05/05/17 06:59 18:59 Intake Total 600 600 Output Total 400 350 Balance 200 250 - Medications Medications: Current Medications Acetaminophen (Tylenol 650mg/20.3ml Solution Ud) 650 mg PEG Q6 PRN PRN Reason: Fever >100.4 F Last Admin: 04/07/17 02:45 Dose: 650 mg Acetylcysteine (Acetylcysteine 20%) 4 ml INH RQ6 [facility] Last Admin: 05/05/17 14:20 Dose: 4 ml Albuterol/Ipratropium (Duoneb 3 Mg/0.5 Mg (3 Ml) Ud) 3 ml INH RQ6 [facility] Last Admin: 05/05/17 14:20 Dose: 3 ml Aspirin (Aspirin Chewable) 81 mg PO DAILY [facility] Last Admin: 05/05/17 11:31 Dose: 81 mg Bethanechol Chloride (Urecholine) 50 mg PEG TID [facility] Last Admin: 05/05/17 14:23 Dose: 50 mg Carvedilol (Coreg) 3.125 mg PEG BID [facility] Last Admin: 05/05/17 11:31 Dose: 3.125 mg Clopidogrel Bisulfate (Plavix) 75 mg PO DAILY [facility] Last Admin: 05/05/17 11:25 Dose: 75 mg Enoxaparin Sodium (Lovenox) 40 mg SC DAILY [facility] Last Admin: 05/05/17 11:26 Dose: 40 mg Famotidine (Pepcid) 20 mg PEG BID [facility] Last Admin: 05/05/17 11:26 Dose: 20 mg Finasteride (Proscar) 5 mg PO DAILY [facility] Last Admin: 05/05/17 11:26 Dose: 5 mg Guaifenesin (Robitussin) 100 mg PEG Q12H [facility] Last Admin: 05/05/17 11:25 Dose: 100 mg Levetiracetam (Keppra) 500 mg PO BID [facility] Last Admin: 05/05/17 11:29 Dose: 500 mg Saccharomyces Boulardii (Florastor) 250 mg PO DAILY [facility] Last Admin: 05/05/17 11:25 Dose: 250 mg Tamsulosin HCl (Flomax) 0.4 mg PO DAILY [facility] Last Admin: 05/05/17 11:25 Dose: 0.4 mg - Labs Labs: 05/04/17 06:03 05/04/17 06:03 PT 10.6 SECONDS (9.7-12.2) 11/24/15 14:10 INR 1.0 11/24/15 14:10 APTT 25 SECONDS (21-34) 11/24/15 14:10 Assessment and Plan (1) Prophylactic measure Status: Acute (2) Anoxic encephalopathy Status: Acute (3) STEMI (ST elevation myocardial infarction) Status: Acute (4) Cardiac arrest Status: Acute (5) Seizures Status: Acute (6) Respiratory failure Status: Acute Attending/Attestation - Attestation I have personally seen and examined this patient.: Yes I have fully participated in the care of the patient.: Yes I have reviewed all pertinent clinical information, including history, physical exam and plan: Yes
[2017-05-05] MEDS: Saccharomyces Boulardi 250 mg Cap PO SCH (11:25)
[2017-05-05] MEDS: guaiFENesin 100 mg/5 ml Syrup UD PEG SCH ×2 (11:25→22:50)
[2017-05-05] MEDS: Enoxaparin 40 mg Syringe SC SCH (11:26)
[2017-05-06] MEDS: Acetylcysteine 20% Inhal Soln (4ml) INH SCH ×4 (01:11→20:33)
[2017-05-06] MEDS: Albuterol-Ipratrop 3 mg / 0.5 (3 ml) UD INH SCH ×4 (01:12→20:33)
[2017-05-06] MEDS: Enoxaparin 40 mg Syringe SC SCH (10:04)
[2017-05-06] MEDS: Saccharomyces Boulardi 250 mg Cap PO SCH (10:05)
[2017-05-06] MEDS: guaiFENesin 100 mg/5 ml Syrup UD PEG SCH ×2 (10:21→22:23)
--- NOTE | 2017-05-06 13:41 | CP.PCM.PN ---
<Judith Forrester DO - Last Filed: 05/06/17 13:42> Subjective - Date & Time of Evaluation Date of Evaluation: 05/06/17 Time of Evaluation: 07:55 - Subjective Subjective: PGy1 progress note for Dr. Chavis Patient seen and examined. Patient resting comfortably, no acute events reported. Patient in no apparent distress. Patient opens eyes in response to examination, no ROS obtainable. Objective - Vital Signs/Intake and Output Vital Signs (last 24 hours): Temp Pulse Resp BP Pulse Ox 98.6 F 74 20 102/67 97 05/06/17 07:32 05/06/17 07:32 05/06/17 07:32 05/06/17 12:24 05/06/17 07:32 Intake and Output: 05/06/17 05/06/17 06:59 18:59 Intake Total 1260 Output Total 950 Balance 310 - Medications Medications: Current Medications Acetaminophen (Tylenol 650mg/20.3ml Solution Ud) 650 mg PEG Q6 PRN PRN Reason: Fever >100.4 F Last Admin: 04/07/17 02:45 Dose: 650 mg Acetylcysteine (Acetylcysteine 20%) 4 ml INH RQ6 [facility] Last Admin: 05/06/17 08:26 Dose: 4 ml Albuterol/Ipratropium (Duoneb 3 Mg/0.5 Mg (3 Ml) Ud) 3 ml INH RQ6 [facility] Last Admin: 05/06/17 08:26 Dose: 3 ml Aspirin (Aspirin Chewable) 81 mg PO DAILY [facility] Last Admin: 05/06/17 10:05 Dose: 81 mg Bethanechol Chloride (Urecholine) 50 mg PEG TID [facility] Last Admin: 05/06/17 10:05 Dose: 50 mg Carvedilol (Coreg) 3.125 mg PEG BID [facility] Last Admin: 05/06/17 10:05 Dose: 3.125 mg Clopidogrel Bisulfate (Plavix) 75 mg PO DAILY [facility] Last Admin: 05/06/17 10:05 Dose: 75 mg Enoxaparin Sodium (Lovenox) 40 mg SC DAILY [facility] Last Admin: 05/06/17 10:04 Dose: 40 mg Famotidine (Pepcid) 20 mg PEG BID [facility] Last Admin: 05/06/17 10:05 Dose: 20 mg Finasteride (Proscar) 5 mg PO DAILY [facility] Last Admin: 05/06/17 10:06 Dose: 5 mg Guaifenesin (Robitussin) 100 mg PEG Q12H [facility] Last Admin: 05/06/17 10:21 Dose: 100 mg Levetiracetam (Keppra) 500 mg PO BID [facility] Last Admin: 05/06/17 10:05 Dose: 500 mg Saccharomyces Boulardii (Florastor) 250 mg PO DAILY [facility] Last Admin: 05/06/17 10:05 Dose: 250 mg Tamsulosin HCl (Flomax) 0.4 mg PO DAILY [facility] Last Admin: 05/06/17 10:05 Dose: 0.4 mg - Labs Labs: 05/04/17 06:03 05/04/17 06:03 PT 10.6 SECONDS (9.7-12.2) 11/24/15 14:10 INR 1.0 11/24/15 14:10 APTT 25 SECONDS (21-34) 11/24/15 14:10 - Constitutional Appears: No Acute Distress, Chronically Ill - Head Exam Head Exam: ATRAUMATIC - Eye Exam Eye Exam: EOMI - ENT Exam ENT Exam: Mucous Membranes Moist - Neck Exam Additional comments: Trach collar in place, no secretions noted - Respiratory Exam Respiratory Exam: Clear to Ausculation Bilateral, NORMAL BREATHING PATTERN - Cardiovascular Exam Cardiovascular Exam: +S1, +S2 - GI/Abdominal Exam GI & Abdominal Exam: Soft, Normal Bowel Sounds Additional comments: PEG clean and dry - Exam Additional comments: condom catheter in place - Extremities Exam Extremities Exam: Pedal Edema (trace edema bilaterally, SCDs and heel protectors in place) - Neurological Exam Neurological Exam: Awake - Skin Skin Exam: Warm Assessment and Plan - Assessment and Plan (Free Text) Assessment: UTI patient afebrile, WBC mildly elevated 13.5 Completed course of Amikacin and Meropenem. amikacin discontinued on 04/18 ( total 10), Meropenem (04/13) total 7 days Urine culture (04/06/17): + Proteus Mirabilis [place] catheter in place Tylenol 650mg po q6 PEG for fever temp > 100.4F Will follow up with Thursday WEEKLY labs Urinary Retention Take note condom cath not always securely in place so Is and Os are approximate as patient wets bed Flomax 0.4mg PEG daily Proscar 5mg PEG daily continue Bethanecol 50mg PEG TID- started after persistent retention and found to be effective. monitor I's and O's Check bladder scan for residual urine three times weekly Watery Stools Recent completion of Merrem, Amikacin C. diff negative Stool leukocytes negative stool culture (04/26/17) negative Respiratory failure Trach in place, continue daily monitoring for secretions. No change in management at this time. Continue with aggressive suctioning multiple times a day per respiratory therapist. Thick secretions Duoneb 3ml INH Q8 and Mucomyst 4ml INH Q6H Robitussin 100mg PEG Q12H Anoxic brain injury s/p cardiac arrest in 05/2015 no acute changes Pt has non spontaneous movements. continue current management. Continue tube feeds- at goal of 60 Florastor 250mg PO TID via PEG Sacral Ulcers- HEALED Cont with offloading/cushioning/turning Continue frequent turning, protective ointment and skin checks. Continue wound care Hx of CAD s/p cardiac stents on 06/13/15 Cont ASA 81mg via PEG daily Cont Coreg 3.125mg PEG BID Cont Plavix 75mg PO daily Seizures Cont Keppra 500mg PEG BID for seizure prophylaxis Monitor for activity Lower extremity edema Improved Monitor Prophylactic measure Pepcid 20 mg PEG BID Lovenox 40mg SC daily one dose lasix 20mg via PEG SCDs and offloading boots continue to turn and reposition q2hrs Feeds increased to 60cc/hr. Per equipment installation professional (05/02/17): tube feed goal: Isosource 1.5 @ 60cc/h Continue to monitor medication administrations and clinical presentation weekly labs <Amandeep Chavis H - Last Filed: 05/06/17 14:32> Objective - Vital Signs/Intake and Output Vital Signs (last 24 hours): Temp Pulse Resp BP Pulse Ox 98.6 F 74 20 102/67 97 05/06/17 07:32 05/06/17 07:32 05/06/17 07:32 05/06/17 12:24 05/06/17 07:32 Intake and Output: 05/06/17 05/06/17 06:59 18:59 Intake Total 1260 Output Total 950 Balance 310 - Medications Medications: Current Medications Acetaminophen (Tylenol 650mg/20.3ml Solution Ud) 650 mg PEG Q6 PRN PRN Reason: Fever >100.4 F Last Admin: 04/07/17 02:45 Dose: 650 mg Acetylcysteine (Acetylcysteine 20%) 4 ml INH RQ6 [facility] Last Admin: 05/06/17 13:57 Dose: 4 ml Albuterol/Ipratropium (Duoneb 3 Mg/0.5 Mg (3 Ml) Ud) 3 ml INH RQ6 [facility] Last Admin: 05/06/17 13:57 Dose: 3 ml Aspirin (Aspirin Chewable) 81 mg PO DAILY [facility] Last Admin: 05/06/17 10:05 Dose: 81 mg Bethanechol Chloride (Urecholine) 50 mg PEG TID [facility] Last Admin: 05/06/17 10:05 Dose: 50 mg Carvedilol (Coreg) 3.125 mg PEG BID [facility] Last Admin: 05/06/17 10:05 Dose: 3.125 mg Clopidogrel Bisulfate (Plavix) 75 mg PO DAILY [facility] Last Admin: 05/06/17 10:05 Dose: 75 mg Enoxaparin Sodium (Lovenox) 40 mg SC DAILY [facility] Last Admin: 05/06/17 10:04 Dose: 40 mg Famotidine (Pepcid) 20 mg PEG BID [facility] Last Admin: 05/06/17 10:05 Dose: 20 mg Finasteride (Proscar) 5 mg PO DAILY [facility] Last Admin: 05/06/17 10:06 Dose: 5 mg Guaifenesin (Robitussin) 100 mg PEG Q12H [facility] Last Admin: 05/06/17 10:21 Dose: 100 mg Levetiracetam (Keppra) 500 mg PO BID [facility] Last Admin: 05/06/17 10:05 Dose: 500 mg Saccharomyces Boulardii (Florastor) 250 mg PO DAILY [facility] Last Admin: 05/06/17 10:05 Dose: 250 mg Tamsulosin HCl (Flomax) 0.4 mg PO DAILY [facility] Last Admin: 05/06/17 10:05 Dose: 0.4 mg - Labs Labs: 05/04/17 06:03 05/04/17 06:03 PT 10.6 SECONDS (9.7-12.2) 11/24/15 14:10 INR 1.0 11/24/15 14:10 APTT 25 SECONDS (21-34) 11/24/15 14:10 Assessment and Plan (1) Prophylactic measure Status: Acute (2) Anoxic encephalopathy Status: Acute (3) STEMI (ST elevation myocardial infarction) Status: Acute (4) Cardiac arrest Status: Acute (5) Seizures Status: Acute (6) Respiratory failure Status: Acute Attending/Attestation - Attestation I have personally seen and examined this patient.: Yes I have fully participated in the care of the patient.: Yes I have reviewed all pertinent clinical information, including history, physical exam and plan: Yes Notes (Text): 05/06/17 14:32 Medical attending: Patient was seen and examined by me, agrees the above note by director biomedical engineering. The overall situation has not changed from before. Thank you very much, Amandeep Chavis
[2017-05-07] MEDS: Acetylcysteine 20% Inhal Soln (4ml) INH SCH ×4 (01:24→20:14)
[2017-05-07] MEDS: Albuterol-Ipratrop 3 mg / 0.5 (3 ml) UD INH SCH ×4 (01:24→20:14)
[2017-05-07] MEDS: Enoxaparin 40 mg Syringe SC SCH (11:09)
[2017-05-07] MEDS: guaiFENesin 100 mg/5 ml Syrup UD PEG SCH ×2 (11:10→22:33)
[2017-05-07] MEDS: Saccharomyces Boulardi 250 mg Cap PO SCH (11:10)
--- NOTE | 2017-05-07 11:30 | CP.PCM.PN ---
Subjective - Date & Time of Evaluation Date of Evaluation: 05/07/17 Time of Evaluation: 07:50 - Subjective Subjective: PGY1 progress note for Dr. Chavis Patient seen and examined. Patient resting comfortably. Patient still with respiratory secretions requiring frequent suctioning. Objective - Vital Signs/Intake and Output Vital Signs (last 24 hours): Temp Pulse Resp BP Pulse Ox 98.3 F 71 20 99/64 L 97 05/07/17 07:54 05/07/17 07:54 05/07/17 07:54 05/07/17 07:54 05/07/17 07:54 Intake and Output: 05/07/17 05/07/17 06:59 18:59 Intake Total 680 Output Total 350 Balance 330 - Medications Medications: Current Medications Acetaminophen (Tylenol 650mg/20.3ml Solution Ud) 650 mg PEG Q6 PRN PRN Reason: Fever >100.4 F Last Admin: 04/07/17 02:45 Dose: 650 mg Acetylcysteine (Acetylcysteine 20%) 4 ml INH RQ6 [facility] Last Admin: 05/07/17 08:00 Dose: 4 ml Albuterol/Ipratropium (Duoneb 3 Mg/0.5 Mg (3 Ml) Ud) 3 ml INH RQ6 [facility] Last Admin: 05/07/17 08:00 Dose: 3 ml Aspirin (Aspirin Chewable) 81 mg PO DAILY [facility] Last Admin: 05/07/17 11:10 Dose: 81 mg Bethanechol Chloride (Urecholine) 50 mg PEG TID [facility] Last Admin: 05/07/17 11:17 Dose: 50 mg Carvedilol (Coreg) 3.125 mg PEG BID [facility] Last Admin: 05/07/17 11:09 Dose: 3.125 mg Clopidogrel Bisulfate (Plavix) 75 mg PO DAILY [facility] Last Admin: 05/07/17 11:09 Dose: 75 mg Enoxaparin Sodium (Lovenox) 40 mg SC DAILY [facility] Last Admin: 05/07/17 11:09 Dose: 40 mg Famotidine (Pepcid) 20 mg PEG BID [facility] Last Admin: 05/07/17 11:09 Dose: 20 mg Finasteride (Proscar) 5 mg PO DAILY [facility] Last Admin: 05/07/17 11:08 Dose: 5 mg Guaifenesin (Robitussin) 100 mg PEG Q12H [facility] Last Admin: 05/07/17 11:10 Dose: 100 mg Levetiracetam (Keppra) 500 mg PO BID [facility] Last Admin: 05/07/17 11:09 Dose: 500 mg Saccharomyces Boulardii (Florastor) 250 mg PO DAILY [facility] Last Admin: 05/07/17 11:10 Dose: 250 mg Tamsulosin HCl (Flomax) 0.4 mg PO DAILY [facility] Last Admin: 05/07/17 11:09 Dose: 0.4 mg - Labs Labs: 05/04/17 06:03 05/04/17 06:03 PT 10.6 SECONDS (9.7-12.2) 11/24/15 14:10 INR 1.0 11/24/15 14:10 APTT 25 SECONDS (21-34) 11/24/15 14:10 - Constitutional Appears: No Acute Distress, Chronically Ill - Head Exam Head Exam: ATRAUMATIC - Eye Exam Eye Exam: EOMI - ENT Exam ENT Exam: Mucous Membranes Moist - Neck Exam Additional comments: trach collar in place - Respiratory Exam Respiratory Exam: NORMAL BREATHING PATTERN. absent: Respiratory Distress - Cardiovascular Exam Cardiovascular Exam: +S1, +S2 - GI/Abdominal Exam GI & Abdominal Exam: Soft Additional comments: PEG in place, tube feeds running - Extremities Exam Extremities Exam: Normal Inspection. absent: Pedal Edema Additional comments: SCDs and heel protectors in place - Neurological Exam Neurological Exam: Awake - Skin Skin Exam: Warm Assessment and Plan - Assessment and Plan (Free Text) Assessment: UTI patient afebrile, WBC mildly elevated 13.5 Completed course of Amikacin and Meropenem. amikacin discontinued on 04/18 ( total 10), Meropenem (04/13) total 7 days Urine culture (04/06/17): + Proteus Mirabilis [place] catheter in place Tylenol 650mg po q6 PEG for fever temp > 100.4F Will follow up with Thursday WEEKLY labs Urinary Retention Take note condom cath not always securely in place so Is and Os are approximate as patient wets bed Flomax 0.4mg PEG daily Proscar 5mg PEG daily continue Bethanecol 50mg PEG TID- started after persistent retention and found to be effective. monitor I's and O's Check bladder scan for residual urine three times weekly Watery Stools Recent completion of Merrem, Amikacin C. diff negative Stool leukocytes negative stool culture (04/26/17) negative Respiratory failure Trach in place, continue daily monitoring for secretions. No change in management at this time. Continue with aggressive suctioning multiple times a day per respiratory therapist. Thick secretions Duoneb 3ml INH Q8 and Mucomyst 4ml INH Q6H Robitussin 100mg PEG Q12H Anoxic brain injury s/p cardiac arrest in 05/2015 no acute changes Pt has non spontaneous movements. continue current management. Continue tube feeds- at goal of 60 Florastor 250mg PO TID via PEG Sacral Ulcers- HEALED Cont with offloading/cushioning/turning Continue frequent turning, protective ointment and skin checks. Continue wound care Hx of CAD s/p cardiac stents on 06/13/15 Cont ASA 81mg via PEG daily Cont Coreg 3.125mg PEG BID Cont Plavix 75mg PO daily Seizures Cont Keppra 500mg PEG BID for seizure prophylaxis Monitor for activity Lower extremity edema Improved Monitor Prophylactic measure Pepcid 20 mg PEG BID Lovenox 40mg SC daily one dose lasix 20mg via PEG SCDs and offloading boots continue to turn and reposition q2hrs Feeds increased to 60cc/hr. Per reinsurance claim analyst (05/02/17): tube feed goal: Isosource 1.5 @ 60cc/h will continue tube feeds @ 60 unless patient cannot tolerate Continue to monitor medication administrations and clinical presentation weekly labs
[2017-05-08] MEDS: Albuterol-Ipratrop 3 mg / 0.5 (3 ml) UD INH SCH ×4 (01:16→21:22)
[2017-05-08] MEDS: Acetylcysteine 20% Inhal Soln (4ml) INH SCH ×4 (01:16→21:22)
[2017-05-08] MEDS: guaiFENesin 100 mg/5 ml Syrup UD PEG SCH ×3 (09:41→22:16)
[2017-05-08] MEDS: Saccharomyces Boulardi 250 mg Cap PO SCH (09:42)
[2017-05-08] MEDS: Enoxaparin 40 mg Syringe SC SCH (09:42)
--- NOTE | 2017-05-08 10:35 | CP.PCM.PN ---
<Judith Forrester DO - Last Filed: 05/08/17 10:31> Subjective - Date & Time of Evaluation Date of Evaluation: 05/08/17 Time of Evaluation: 08:10 - Subjective Subjective: PGY1 Progress note for Dr. Chavis Patient seen and examined. No acute events overnight per nursing. Patient requiring frequent suctioning of respiratory secretions. Objective - Vital Signs/Intake and Output Vital Signs (last 24 hours): Temp Pulse Resp BP Pulse Ox 98.4 F 78 20 106/71 95 05/08/17 08:00 05/08/17 08:00 05/08/17 08:00 05/08/17 08:00 05/08/17 08:00 Intake and Output: 05/08/17 05/08/17 06:59 18:59 Intake Total 1440 Output Total 750 Balance 690 - Medications Medications: Current Medications Acetaminophen (Tylenol 650mg/20.3ml Solution Ud) 650 mg PEG Q6 PRN PRN Reason: Fever >100.4 F Last Admin: 04/07/17 02:45 Dose: 650 mg Acetylcysteine (Acetylcysteine 20%) 4 ml INH RQ6 [facility] Last Admin: 05/08/17 08:49 Dose: 4 ml Albuterol/Ipratropium (Duoneb 3 Mg/0.5 Mg (3 Ml) Ud) 3 ml INH RQ6 [facility] Last Admin: 05/08/17 08:49 Dose: 3 ml Aspirin (Aspirin Chewable) 81 mg PO DAILY [facility] Last Admin: 05/08/17 09:42 Dose: 81 mg Bethanechol Chloride (Urecholine) 50 mg PEG TID [facility] Last Admin: 05/08/17 09:41 Dose: 50 mg Carvedilol (Coreg) 3.125 mg PEG BID [facility] Last Admin: 05/08/17 09:44 Dose: 3.125 mg Clopidogrel Bisulfate (Plavix) 75 mg PO DAILY [facility] Last Admin: 05/08/17 09:41 Dose: 75 mg Enoxaparin Sodium (Lovenox) 30 mg SC DAILY [facility] Famotidine (Pepcid) 20 mg PEG BID [facility] Last Admin: 05/08/17 09:42 Dose: 20 mg Finasteride (Proscar) 5 mg PO DAILY [facility] Last Admin: 05/08/17 09:41 Dose: 5 mg Guaifenesin (Robitussin) 100 mg PEG Q12H [facility] Last Admin: 05/08/17 09:41 Dose: 100 mg Levetiracetam (Keppra) 500 mg PO BID [facility] Last Admin: 05/08/17 09:42 Dose: 500 mg Saccharomyces Boulardii (Florastor) 250 mg PO DAILY [facility] Last Admin: 05/08/17 09:42 Dose: 250 mg Tamsulosin HCl (Flomax) 0.4 mg PO DAILY [facility] Last Admin: 05/08/17 09:41 Dose: 0.4 mg - Labs Labs: 05/04/17 06:03 05/04/17 06:03 PT 10.6 SECONDS (9.7-12.2) 11/24/15 14:10 INR 1.0 11/24/15 14:10 APTT 25 SECONDS (21-34) 11/24/15 14:10 - Constitutional Appears: No Acute Distress, Chronically Ill - Head Exam Head Exam: ATRAUMATIC - Eye Exam Eye Exam: EOMI - ENT Exam ENT Exam: Mucous Membranes Moist - Neck Exam Additional comments: trach collar in place, small amount of yellow-tinged secretions noted - Respiratory Exam Respiratory Exam: NORMAL BREATHING PATTERN. absent: Respiratory Distress - Cardiovascular Exam Cardiovascular Exam: +S1, +S2 - GI/Abdominal Exam GI & Abdominal Exam: Soft, Normal Bowel Sounds Additional comments: PEG site clean and dry - Extremities Exam Extremities Exam: absent: Pedal Edema Additional comments: SCDs, heel protectors in place - Neurological Exam Neurological Exam: Awake - Skin Skin Exam: Warm Assessment and Plan - Assessment and Plan (Free Text) Assessment: UTI patient afebrile, WBC mildly elevated 13.5 Completed course of Amikacin and Meropenem. amikacin discontinued on 04/18 ( total 10), Meropenem (04/13) total 7 days Urine culture (04/06/17): + Proteus Mirabilis [place] catheter in place Tylenol 650mg po q6 PEG for fever temp > 100.4F Will follow up with Thursday WEEKLY labs Urinary Retention Take note condom cath not always securely in place so Is and Os are approximate as patient wets bed Flomax 0.4mg PEG daily Proscar 5mg PEG daily continue Bethanecol 50mg PEG TID- started after persistent retention and found to be effective. monitor I's and O's Check bladder scan for residual urine three times weekly Watery Stools Recent completion of Merrem, Amikacin C. diff negative Stool leukocytes negative stool culture (04/26/17) negative Respiratory failure Trach in place, continue daily monitoring for secretions. No change in management at this time. Continue with aggressive suctioning multiple times a day per respiratory therapist. Thick secretions Duoneb 3ml INH Q8 and Mucomyst 4ml INH Q6H Robitussin 100mg PEG Q12H Anoxic brain injury s/p cardiac arrest in 05/2015 no acute changes Pt has non spontaneous movements. continue current management. Continue tube feeds- at goal of 60 Florastor 250mg PO TID via PEG Sacral Ulcers- HEALED Cont with offloading/cushioning/turning Continue frequent turning, protective ointment and skin checks. Continue wound care Hx of CAD s/p cardiac stents on 06/13/15 Cont ASA 81mg via PEG daily Cont Coreg 3.125mg PEG BID Cont Plavix 75mg PO daily Seizures Cont Keppra 500mg PEG BID for seizure prophylaxis Monitor for activity Lower extremity edema Improved Monitor Prophylactic measure Pepcid 20 mg PEG BID Lovenox 30mg SC daily SCDs and offloading boots continue to turn and reposition q2hrs Feeds increased to 60cc/hr. Per electrical foreman (05/02/17): tube feed goal: Isosource 1.5 @ 60cc/h will continue tube feeds @ 60 unless patient cannot tolerate Continue to monitor medication administrations and clinical presentation weekly labs <Amandeep Chavis - Last Filed: 05/08/17 15:59> Objective - Vital Signs/Intake and Output Vital Signs (last 24 hours): Temp Pulse Resp BP Pulse Ox 98.4 F 78 20 106/71 95 05/08/17 08:00 05/08/17 08:00 05/08/17 08:00 05/08/17 08:00 05/08/17 08:00 Intake and Output: 05/08/17 05/08/17 06:59 18:59 Intake Total 1440 Output Total 750 Balance 690 - Medications Medications: Current Medications Acetaminophen (Tylenol 650mg/20.3ml Solution Ud) 650 mg PEG Q6 PRN PRN Reason: Fever >100.4 F Last Admin: 04/07/17 02:45 Dose: 650 mg Acetylcysteine (Acetylcysteine 20%) 4 ml INH RQ6 [facility] Last Admin: 05/08/17 15:14 Dose: 4 ml Albuterol/Ipratropium (Duoneb 3 Mg/0.5 Mg (3 Ml) Ud) 3 ml INH RQ6 [facility] Last Admin: 05/08/17 15:14 Dose: 3 ml Aspirin (Aspirin Chewable) 81 mg PO DAILY [facility] Last Admin: 05/08/17 09:42 Dose: 81 mg Bethanechol Chloride (Urecholine) 50 mg PEG TID [facility] Last Admin: 05/08/17 13:21 Dose: 50 mg Carvedilol (Coreg) 3.125 mg PEG BID [facility] Last Admin: 05/08/17 09:44 Dose: 3.125 mg Clopidogrel Bisulfate (Plavix) 75 mg PO DAILY [facility] Last Admin: 05/08/17 09:41 Dose: 75 mg Enoxaparin Sodium (Lovenox) 30 mg SC DAILY [facility] Famotidine (Pepcid) 20 mg PEG BID [facility] Last Admin: 05/08/17 09:42 Dose: 20 mg Finasteride (Proscar) 5 mg PO DAILY [facility] Last Admin: 05/08/17 09:41 Dose: 5 mg Guaifenesin (Robitussin) 100 mg PEG Q12H [facility] Last Admin: 05/08/17 13:22 Dose: Not Given Levetiracetam (Keppra) 500 mg PO BID [facility] Last Admin: 05/08/17 09:42 Dose: 500 mg Saccharomyces Boulardii (Florastor) 250 mg PO DAILY [facility] Last Admin: 05/08/17 09:42 Dose: 250 mg Tamsulosin HCl (Flomax) 0.4 mg PO DAILY [facility] Last Admin: 05/08/17 09:41 Dose: 0.4 mg - Labs Labs: 05/04/17 06:03 05/04/17 06:03 PT 10.6 SECONDS (9.7-12.2) 11/24/15 14:10 INR 1.0 11/24/15 14:10 APTT 25 SECONDS (21-34) 11/24/15 14:10 Assessment and Plan (1) Prophylactic measure Status: Acute (2) Anoxic encephalopathy Status: Acute (3) STEMI (ST elevation myocardial infarction) Status: Acute (4) Cardiac arrest Status: Acute (5) Seizures Status: Acute (6) Respiratory failure Status: Acute Attending/Attestation - Attestation I have personally seen and examined this patient.: Yes I have fully participated in the care of the patient.: Yes I have reviewed all pertinent clinical information, including history, physical exam and plan: Yes Notes (Text): 05/08/17 15:59 Medical attending: Patient was seen and examined by me, agrees the above note by medical office representative. Unfortunately the situation is unchanged from before
[2017-05-09] MEDS: Acetylcysteine 20% Inhal Soln (4ml) INH SCH ×4 (01:10→19:41)
[2017-05-09] MEDS: Albuterol-Ipratrop 3 mg / 0.5 (3 ml) UD INH SCH ×4 (01:10→19:40)
--- NOTE | 2017-05-09 01:40 | CP.PCM.PN ---
<Alex Coyle - Last Filed: 05/09/17 01:53> Subjective - Date & Time of Evaluation Date of Evaluation: 05/09/17 Time of Evaluation: 00:37 - Subjective Subjective: PGY [address] Chavis Patient seen and examined in no acute distress. Patient requiring frequent suctioning of respiratory secretions. Patient is not able to respond to a review of systems at this time due to presentation. Objective - Vital Signs/Intake and Output Vital Signs (last 24 hours): Temp Pulse Resp BP Pulse Ox 98.4 F 85 20 107/72 96 05/09/17 00:00 05/09/17 00:00 05/09/17 00:00 05/09/17 00:00 05/09/17 00:00 Intake and Output: 05/08/17 05/09/17 18:59 06:59 Intake Total 780 Output Total 400 Balance 380 - Medications Medications: Current Medications Acetaminophen (Tylenol 650mg/20.3ml Solution Ud) 650 mg PEG Q6 PRN PRN Reason: Fever >100.4 F Last Admin: 04/07/17 02:45 Dose: 650 mg Acetylcysteine (Acetylcysteine 20%) 4 ml INH RQ6 [facility] Last Admin: 05/09/17 01:10 Dose: 4 ml Albuterol/Ipratropium (Duoneb 3 Mg/0.5 Mg (3 Ml) Ud) 3 ml INH RQ6 [facility] Last Admin: 05/09/17 01:10 Dose: 3 ml Aspirin (Aspirin Chewable) 81 mg PO DAILY [facility] Last Admin: 05/08/17 09:42 Dose: 81 mg Bethanechol Chloride (Urecholine) 50 mg PEG TID [facility] Last Admin: 05/08/17 17:54 Dose: 50 mg Carvedilol (Coreg) 3.125 mg PEG BID [facility] Last Admin: 05/08/17 17:54 Dose: 3.125 mg Clopidogrel Bisulfate (Plavix) 75 mg PO DAILY [facility] Last Admin: 05/08/17 09:41 Dose: 75 mg Enoxaparin Sodium (Lovenox) 30 mg SC DAILY [facility] Famotidine (Pepcid) 20 mg PEG BID [facility] Last Admin: 05/08/17 17:55 Dose: 20 mg Finasteride (Proscar) 5 mg PO DAILY [facility] Last Admin: 05/08/17 09:41 Dose: 5 mg Guaifenesin (Robitussin) 100 mg PEG Q12H [facility] Last Admin: 05/08/17 22:16 Dose: 100 mg Levetiracetam (Keppra) 500 mg PO BID [facility] Last Admin: 05/08/17 17:55 Dose: 500 mg Saccharomyces Boulardii (Florastor) 250 mg PO DAILY [facility] Last Admin: 05/08/17 09:42 Dose: 250 mg Tamsulosin HCl (Flomax) 0.4 mg PO DAILY [facility] Last Admin: 05/08/17 09:41 Dose: 0.4 mg - Labs Labs: 05/04/17 06:03 05/04/17 06:03 PT 10.6 SECONDS (9.7-12.2) 11/24/15 14:10 INR 1.0 11/24/15 14:10 APTT 25 SECONDS (21-34) 11/24/15 14:10 - Constitutional Appears: Non-toxic, No Acute Distress - Head Exam Head Exam: NORMOCEPHALIC - Eye Exam Eye Exam: PERRL - ENT Exam ENT Exam: Mucous Membranes Moist - Respiratory Exam Respiratory Exam: NORMAL BREATHING PATTERN. absent: Wheezes - Cardiovascular Exam Cardiovascular Exam: +S1, +S2 - GI/Abdominal Exam GI & Abdominal Exam: Soft, Normal Bowel Sounds - Extremities Exam Additional comments: non purposeful movements, boots in place b/l, scratch razo noted on arms bilaterally - Neurological Exam Neurological Exam: Awake. absent: Alert - Psychiatric Exam Psychiatric exam: Normal Affect, Normal Mood - Skin Skin Exam: Normal Color, Warm Assessment and Plan - Assessment and Plan (Free Text) Assessment: UTI patient afebrile, WBC mildly elevated 13.5 Completed course of Amikacin and Meropenem. amikacin discontinued on 04/18 ( total 10), Meropenem (04/13) total 7 days Urine culture (04/06/17): + Proteus Mirabilis [place] catheter in place Tylenol 650mg po q6 PEG for fever temp > 100.4F Will follow up with Thursday WEEKLY labs Urinary Retention Take note condom cath not always securely in place so Is and Os are approximate as patient does wet bed Flomax 0.4mg PEG daily Proscar 5mg PEG daily continue Bethanecol 50mg PEG TID- started after persistent retention and found to be effective. monitor I's and O's Check bladder scan for residual urine three times weekly Watery Stools Recent completion of Merrem, Amikacin C. diff negative Stool leukocytes negative stool culture (04/26/17) negative Respiratory failure Trach in place, continue daily monitoring for secretions. No change in management at this time. Continue with aggressive suctioning multiple times a day per respiratory therapist. Thick secretions Duoneb 3ml INH Q8 and Mucomyst 4ml INH Q6H Robitussin 100mg PEG Q12H Anoxic brain injury s/p cardiac arrest in 05/2015 no acute changes Pt has non spontaneous movements. continue current management. Continue tube feeds- at goal of 60 Florastor 250mg PO TID via PEG Sacral Ulcers- HEALED Cont with offloading/cushioning/turning Continue frequent turning, protective ointment and skin checks. Continue wound care Hx of CAD s/p cardiac stents on 06/13/15 Cont ASA 81mg via PEG daily Cont Coreg 3.125mg PEG BID Cont Plavix 75mg PO daily Seizures Cont Keppra 500mg PEG BID for seizure prophylaxis Monitor for activity Lower extremity edema Improved Monitor Prophylactic measure Pepcid 20 mg PEG BID Lovenox 30mg SC daily SCDs and offloading boots continue to turn and reposition q2hrs Feeds increased to 60cc/hr. Per support clerk (05/02/17): tube feed goal: Isosource 1.5 @ 60cc/h Will continue tube feeds @ 60 unless patient cannot tolerate Continue to monitor medication administrations and clinical presentation weekly labs. <Amandeep Chavis H - Last Filed: 05/09/17 10:47> Objective - Vital Signs/Intake and Output Vital Signs (last 24 hours): Temp Pulse Resp BP Pulse Ox 99.2 F 87 20 113/75 97 05/09/17 08:05 05/09/17 08:05 05/09/17 08:05 05/09/17 08:05 05/09/17 08:05 Intake and Output: 05/09/17 05/09/17 06:59 18:59 Intake Total 1460 Output Total 900 Balance 560 - Medications Medications: Current Medications Acetaminophen (Tylenol 650mg/20.3ml Solution Ud) 650 mg PEG Q6 PRN PRN Reason: Fever >100.4 F Last Admin: 04/07/17 02:45 Dose: 650 mg Acetylcysteine (Acetylcysteine 20%) 4 ml INH RQ6 [facility] Last Admin: 05/09/17 07:30 Dose: 4 ml Albuterol/Ipratropium (Duoneb 3 Mg/0.5 Mg (3 Ml) Ud) 3 ml INH RQ6 [facility] Last Admin: 05/09/17 07:30 Dose: 3 ml Aspirin (Aspirin Chewable) 81 mg PO DAILY [facility] Last Admin: 05/08/17 09:42 Dose: 81 mg Bethanechol Chloride (Urecholine) 50 mg PEG TID [facility] Last Admin: 05/08/17 17:54 Dose: 50 mg Carvedilol (Coreg) 3.125 mg PEG BID [facility] Last Admin: 05/08/17 17:54 Dose: 3.125 mg Clopidogrel Bisulfate (Plavix) 75 mg PO DAILY [facility] Last Admin: 05/08/17 09:41 Dose: 75 mg Enoxaparin Sodium (Lovenox) 30 mg SC DAILY [facility] Famotidine (Pepcid) 20 mg PEG BID [facility] Last Admin: 05/08/17 17:55 Dose: 20 mg Finasteride (Proscar) 5 mg PO DAILY [facility] Last Admin: 05/08/17 09:41 Dose: 5 mg Guaifenesin (Robitussin) 100 mg PEG Q12H [facility] Last Admin: 05/08/17 22:16 Dose: 100 mg Levetiracetam (Keppra) 500 mg PO BID [facility] Last Admin: 05/08/17 17:55 Dose: 500 mg Saccharomyces Boulardii (Florastor) 250 mg PO DAILY [facility] Last Admin: 05/08/17 09:42 Dose: 250 mg Tamsulosin HCl (Flomax) 0.4 mg PO DAILY [facility] Last Admin: 05/08/17 09:41 Dose: 0.4 mg - Labs Labs: 05/04/17 06:03 05/04/17 06:03 PT 10.6 SECONDS (9.7-12.2) 11/24/15 14:10 INR 1.0 11/24/15 14:10 APTT 25 SECONDS (21-34) 11/24/15 14:10 Assessment and Plan (1) Prophylactic measure Status: Acute (2) Anoxic encephalopathy Status: Acute (3) STEMI (ST elevation myocardial infarction) Status: Acute (4) Cardiac arrest Status: Acute (5) Seizures Status: Acute (6) Respiratory failure Status: Acute Attending/Attestation - Attestation I have personally seen and examined this patient.: Yes I have fully participated in the care of the patient.: Yes I have reviewed all pertinent clinical information, including history, physical exam and plan: Yes Notes (Text): Medical Attending: Patient was seen and examined by me. Agree with the above note by the resident. There have been no changes in overall situation since yesterday Amandeep Chavis
[2017-05-09] MEDS: Enoxaparin 30 mg Syringe SC SCH (10:55)
[2017-05-09] MEDS: Saccharomyces Boulardi 250 mg Cap PO SCH (10:57)
[2017-05-09] MEDS: guaiFENesin 100 mg/5 ml Syrup UD PEG SCH ×2 (10:58→23:13)
[2017-05-10] MEDS: Albuterol-Ipratrop 3 mg / 0.5 (3 ml) UD INH SCH ×3 (01:02→20:20)
[2017-05-10] MEDS: Acetylcysteine 20% Inhal Soln (4ml) INH SCH ×4 (01:02→20:20)
--- NOTE | 2017-05-10 04:27 | CP.PCM.PN ---
<Alex Coyle - Last Filed: 05/10/17 04:25> Subjective - Date & Time of Evaluation Date of Evaluation: 05/10/17 Time of Evaluation: 00:44 - Subjective Subjective: PGY [address] Chavis Patient seen and examined in no acute distress. Patient requiring frequent suctioning of respiratory secretions. Nursing team called PRIMER POWDER BLENDER WET overnight after suspected apneic event. Patient was monitored and suctioned whereupon breathing ensued. PRIMER POWDER BLENDER WET was consequently called off. Patient found to be at baseline state, with normal respirations. Patient not found to be tachypneic or in any acute distress. Patient is not able to respond to a review of systems at this time due to anoxic brain injury. Objective - Vital Signs/Intake and Output Vital Signs (last 24 hours): Temp Pulse Resp BP Pulse Ox 98.8 F 77 20 109/72 98 05/10/17 00:00 05/10/17 00:00 05/10/17 00:00 05/10/17 00:00 05/10/17 00:00 Intake and Output: 05/09/17 05/10/17 18:59 06:59 Intake Total 680 680 Output Total 100 800 Balance 580 -120 - Medications Medications: Current Medications Acetaminophen (Tylenol 650mg/20.3ml Solution Ud) 650 mg PEG Q6 PRN PRN Reason: Fever >100.4 F Last Admin: 04/07/17 02:45 Dose: 650 mg Acetylcysteine (Acetylcysteine 20%) 4 ml INH RQ6 [facility] Last Admin: 05/10/17 01:02 Dose: 4 ml Albuterol/Ipratropium (Duoneb 3 Mg/0.5 Mg (3 Ml) Ud) 3 ml INH RQ6 [facility] Last Admin: 05/10/17 01:02 Dose: 3 ml Aspirin (Aspirin Chewable) 81 mg PO DAILY [facility] Last Admin: 05/09/17 10:57 Dose: 81 mg Bethanechol Chloride (Urecholine) 50 mg PEG TID [facility] Last Admin: 05/09/17 17:21 Dose: 50 mg Carvedilol (Coreg) 3.125 mg PEG BID [facility] Last Admin: 05/09/17 18:00 Dose: 3.125 mg Clopidogrel Bisulfate (Plavix) 75 mg PO DAILY [facility] Last Admin: 05/09/17 10:57 Dose: 75 mg Enoxaparin Sodium (Lovenox) 30 mg SC DAILY [facility] Last Admin: 05/09/17 10:55 Dose: 30 mg Famotidine (Pepcid) 20 mg PEG BID [facility] Last Admin: 05/09/17 17:22 Dose: 20 mg Finasteride (Proscar) 5 mg PO DAILY [facility] Last Admin: 05/09/17 10:56 Dose: 5 mg Guaifenesin (Robitussin) 100 mg PEG Q12H [facility] Last Admin: 05/09/17 23:13 Dose: 100 mg Levetiracetam (Keppra) 500 mg PO BID [facility] Last Admin: 05/09/17 17:21 Dose: 500 mg Saccharomyces Boulardii (Florastor) 250 mg PO DAILY [facility] Last Admin: 05/09/17 10:57 Dose: 250 mg Tamsulosin HCl (Flomax) 0.4 mg PO DAILY [facility] Last Admin: 05/09/17 10:56 Dose: 0.4 mg - Labs Labs: 05/04/17 06:03 05/04/17 06:03 PT 10.6 SECONDS (9.7-12.2) 11/24/15 14:10 INR 1.0 11/24/15 14:10 APTT 25 SECONDS (21-34) 11/24/15 14:10 - Constitutional Appears: Non-toxic, No Acute Distress - Head Exam Head Exam: NORMOCEPHALIC - Eye Exam Eye Exam: PERRL - ENT Exam ENT Exam: Mucous Membranes Moist - Neck Exam Neck Exam: Full ROM Additional comments: trach in place with minimal secretions - Respiratory Exam Respiratory Exam: NORMAL BREATHING PATTERN. absent: Wheezes - Cardiovascular Exam Cardiovascular Exam: +S1, +S2 - GI/Abdominal Exam GI & Abdominal Exam: Soft, Normal Bowel Sounds - Extremities Exam Extremities Exam: Full ROM, Normal Capillary Refill - Back Exam Back Exam: Full ROM, NORMAL INSPECTION - Neurological Exam Neurological Exam: Altered - Psychiatric Exam Psychiatric exam: Flat Affect - Skin Skin Exam: Dry, Normal Color, Warm Assessment and Plan - Assessment and Plan (Free Text) Assessment: UTI patient afebrile, WBC mildly elevated 13.5 Completed course of Amikacin and Meropenem. amikacin discontinued on 04/18 ( total 10), Meropenem (04/13) total 7 days Urine culture (04/06/17): + Proteus Mirabilis [place] catheter in place Tylenol 650mg po q6 PEG for fever temp > 100.4F Will follow up with Thursday WEEKLY labs Urinary Retention Take note condom cath not always securely in place so Is and Os are approximate as patient does wet bed Flomax 0.4mg PEG daily Proscar 5mg PEG daily continue Bethanecol 50mg PEG TID- started after persistent retention and found to be effective. monitor I's and O's Check bladder scan for residual urine three times weekly Watery Stools Recent completion of Merrem, Amikacin C. diff negative Stool leukocytes negative stool culture (04/26/17) negative Respiratory failure Trach in place, continue daily monitoring for secretions. No change in management at this time. Continue with aggressive suctioning multiple times a day per respiratory therapist. Monitor for signs of respiratory distress Thick secretions Duoneb 3ml INH Q8 and Mucomyst 4ml INH Q6H Robitussin 100mg PEG Q12H Anoxic brain injury s/p cardiac arrest in 05/2015 no acute changes Pt has non spontaneous movements. continue current management. Continue tube feeds- at goal of 60 Florastor 250mg PO TID via PEG Sacral Ulcers- HEALED Cont with offloading/cushioning/turning Continue frequent turning, protective ointment and skin checks. Continue wound care Hx of CAD s/p cardiac stents on 06/13/15 Cont ASA 81mg via PEG daily Cont Coreg 3.125mg PEG BID Cont Plavix 75mg PO daily Seizures Cont Keppra 500mg PEG BID for seizure prophylaxis Monitor for activity Lower extremity edema Improved Monitor Prophylactic measure Pepcid 20 mg PEG BID Lovenox 30mg SC daily SCDs and offloading boots continue to turn and reposition q2hrs Feeds increased to 60cc/hr. Per personal injury paralegal (05/02/17): tube feed goal: Isosource 1.5 @ 60cc/h Will continue tube feeds @ 60 unless patient cannot tolerate Continue to monitor medication administrations and clinical presentation weekly labs. <Amandeep Chavis - Last Filed: 05/10/17 11:25> Objective - Vital Signs/Intake and Output Vital Signs (last 24 hours): Temp Pulse Resp BP Pulse Ox 98.1 F 81 18 122/78 97 05/10/17 08:46 05/10/17 08:46 05/10/17 08:46 05/10/17 08:46 05/10/17 08:46 Intake and Output: 05/10/17 05/10/17 06:59 18:59 Intake Total 680 680 Output Total 800 350 Balance -120 330 - Medications Medications: Current Medications Acetaminophen (Tylenol 650mg/20.3ml Solution Ud) 650 mg PEG Q6 PRN PRN Reason: Fever >100.4 F Last Admin: 04/07/17 02:45 Dose: 650 mg Acetylcysteine (Acetylcysteine 20%) 4 ml INH RQ6 [facility] Last Admin: 05/10/17 08:34 Dose: 4 ml Aspirin (Aspirin Chewable) 81 mg PO DAILY [facility] Last Admin: 05/10/17 10:27 Dose: 81 mg Bethanechol Chloride (Urecholine) 50 mg PEG TID [facility] Last Admin: 05/10/17 10:28 Dose: 50 mg Carvedilol (Coreg) 3.125 mg PEG BID [facility] Last Admin: 05/10/17 10:27 Dose: 3.125 mg Clopidogrel Bisulfate (Plavix) 75 mg PO DAILY [facility] Last Admin: 05/10/17 10:27 Dose: 75 mg Enoxaparin Sodium (Lovenox) 30 mg SC DAILY [facility] Last Admin: 05/09/17 10:55 Dose: 30 mg Famotidine (Pepcid) 20 mg PEG BID [facility] Last Admin: 05/10/17 10:27 Dose: 20 mg Finasteride (Proscar) 5 mg PO DAILY [facility] Last Admin: 05/10/17 10:27 Dose: 5 mg Guaifenesin (Robitussin) 100 mg PEG Q12H [facility] Last Admin: 05/10/17 10:29 Dose: 100 mg Levetiracetam (Keppra) 500 mg PO BID [facility] Last Admin: 05/10/17 10:27 Dose: 500 mg Saccharomyces Boulardii (Florastor) 250 mg PO DAILY [facility] Last Admin: 05/09/17 10:57 Dose: 250 mg Tamsulosin HCl (Flomax) 0.4 mg PO DAILY [facility] Last Admin: 05/10/17 10:27 Dose: 0.4 mg - Labs Labs: 05/04/17 06:03 05/04/17 06:03 PT 10.6 SECONDS (9.7-12.2) 11/24/15 14:10 INR 1.0 11/24/15 14:10 APTT 25 SECONDS (21-34) 11/24/15 14:10 Assessment and Plan (1) Prophylactic measure Status: Acute (2) Anoxic encephalopathy Status: Acute (3) STEMI (ST elevation myocardial infarction) Status: Acute (4) Cardiac arrest Status: Acute (5) Seizures Status: Acute (6) Respiratory failure Status: Acute Attending/Attestation - Attestation I have personally seen and examined this patient.: Yes I have fully participated in the care of the patient.: Yes I have reviewed all pertinent clinical information, including history, physical exam and plan: Yes
[2017-05-10] MEDS: guaiFENesin 100 mg/5 ml Syrup UD PEG SCH ×2 (10:29→23:41)
[2017-05-10] MEDS: Saccharomyces Boulardi 250 mg Cap PO SCH (10:40)
[2017-05-10] MEDS: Enoxaparin 30 mg Syringe SC SCH (13:06)
[2017-05-11] MEDS: Albuterol-Ipratrop 3 mg / 0.5 (3 ml) UD INH SCH ×3 (01:07→19:19)
[2017-05-11] MEDS: Acetylcysteine 20% Inhal Soln (4ml) INH SCH ×4 (01:07→19:18)
[2017-05-11 06:16] LABS: BASO # 0.1 K/uL (0.0-0.2); BASO % 1.2 % (0.0-2.0); EOS # 0.6 K/uL (0.0-0.7); EOS % 5.9 % (0.0-4.0); HEMOGLOBIN 10.2 g/dL (12.0-18.0); LYMPH # 2.2 K/uL (1.0-4.3); LYMPH % 21.1 % (20.0-40.0); MEAN CELL VOLUME 88.5 fL (80.0-94.0); MEAN CORPUSCULAR HEMOGLOBIN 28.5 pg (27.0-31.0); MEAN CORPUSCULAR HGB CONC 32.2 g/dL (33.0-37.0); MEAN PLATELET VOLUME 8.1 fL (7.2-11.7); MONO # 0.8 K/uL (0.0-0.8); MONO % 7.8 % (0.0-10.0); NEUT # 6.5 K/uL (1.8-7.0); NRBC % 0.1 % (0.0-2.0); RBC 3.57 Mil/uL (4.40-5.90); RED CELL DISTRIBUTION WIDTH 15.5 % (11.5-14.5); WHITE BLOOD COUNT 10.2 K/uL (4.8-10.8)
[2017-05-11 06:54] LABS: AST/SGOT 24 U/L (17-59); GFR NON-AFRICAN AMERICAN > 60
[2017-05-11 06:55] LABS: ALT/SGPT 40 U/L (21-72); BLOOD UREA NITROGEN 17 mg/dL (9-20); CALCIUM 8.2 mg/dl (8.6-10.4)
[2017-05-11 06:59] LABS: ALB/GLOB RATIO 0.6 (1.0-2.1)
[2017-05-11] MEDS: Saccharomyces Boulardi 250 mg Cap PO SCH (10:28)
[2017-05-11] MEDS: Enoxaparin 30 mg Syringe SC SCH (10:30)
[2017-05-11] MEDS: guaiFENesin 100 mg/5 ml Syrup UD PEG SCH ×3 (13:11→23:50)
--- NOTE | 2017-05-11 17:43 | CP.PCM.PN ---
<Vesna Turpin - Last Filed: 05/11/17 18:51> Subjective - Date & Time of Evaluation Date of Evaluation: 05/11/17 Time of Evaluation: 17:43 - Subjective Subjective: Patient seen and examined in no acute distress. Patient has been monitored for respiratory secretions following a ELECTRONIC INDUCTION HARDENER over the weekend for apenic episode. ELECTRONIC INDUCTION HARDENER was called off once the episode was resolved by suction. Patient has normal respirations. Patient unable to respond to review of systems or questions due to anoxic brain injury. Objective - Vital Signs/Intake and Output Vital Signs (last 24 hours): Temp Pulse Resp BP Pulse Ox 98.4 F 92 H 20 84/58 L 97 05/11/17 16:00 05/11/17 16:00 05/11/17 16:00 05/11/17 16:00 05/11/17 16:00 Intake and Output: 05/11/17 05/11/17 06:59 18:59 Intake Total 1360 680 Output Total 500 300 Balance 860 380 - Medications Medications: Current Medications Acetaminophen (Tylenol 650mg/20.3ml Solution Ud) 650 mg PEG Q6 PRN PRN Reason: Fever >100.4 F Last Admin: 04/07/17 02:45 Dose: 650 mg Acetylcysteine (Acetylcysteine 20%) 4 ml INH RQ6 [facility] Last Admin: 05/11/17 15:18 Dose: Not Given Albuterol/Ipratropium (Duoneb 3 Mg/0.5 Mg (3 Ml) Ud) 3 ml INH RQ8 [facility] Last Admin: 05/11/17 08:40 Dose: 3 ml Aspirin (Aspirin Chewable) 81 mg PO DAILY [facility] Last Admin: 05/11/17 10:30 Dose: 81 mg Bethanechol Chloride (Urecholine) 50 mg PEG TID [facility] Last Admin: 05/11/17 13:09 Dose: 50 mg Carvedilol (Coreg) 3.125 mg PEG BID [facility] Last Admin: 05/11/17 10:29 Dose: 3.125 mg Clopidogrel Bisulfate (Plavix) 75 mg PO DAILY [facility] Last Admin: 05/11/17 10:28 Dose: 75 mg Enoxaparin Sodium (Lovenox) 30 mg SC DAILY [facility] Last Admin: 05/11/17 10:30 Dose: 30 mg Famotidine (Pepcid) 20 mg PEG BID [facility] Last Admin: 05/11/17 10:29 Dose: 20 mg Finasteride (Proscar) 5 mg PO DAILY [facility] Last Admin: 05/11/17 10:30 Dose: 5 mg Guaifenesin (Robitussin) 100 mg PEG Q12H [facility] Last Admin: 05/11/17 13:11 Dose: 100 mg Levetiracetam (Keppra) 500 mg PO BID [facility] Last Admin: 05/11/17 10:29 Dose: 500 mg Saccharomyces Boulardii (Florastor) 250 mg PO DAILY [facility] Last Admin: 05/11/17 10:28 Dose: 250 mg Scopolamine (Transderm-Scop) 1 patch TD Q3D [facility] Last Admin: 05/11/17 10:29 Dose: 1 patch Tamsulosin HCl (Flomax) 0.4 mg PO DAILY [facility] Last Admin: 05/11/17 10:29 Dose: 0.4 mg - Labs Labs: 05/11/17 06:04 05/11/17 06:04 PT 10.6 SECONDS (9.7-12.2) 11/24/15 14:10 INR 1.0 11/24/15 14:10 APTT 25 SECONDS (21-34) 11/24/15 14:10 - Constitutional Appears: Non-toxic, No Acute Distress - Head Exam Head Exam: NORMOCEPHALIC - ENT Exam ENT Exam: Mucous Membranes Moist - Neck Exam Neck Exam: absent: Full ROM Additional comments: trach in place - Respiratory Exam Respiratory Exam: NORMAL BREATHING PATTERN - Cardiovascular Exam Cardiovascular Exam: +S1, +S2 - GI/Abdominal Exam GI & Abdominal Exam: Soft, Normal Bowel Sounds. absent: Distended - Extremities Exam Extremities Exam: absent: Pedal Edema - Neurological Exam Neurological Exam: Altered. absent: Alert, Awake, Oriented x3 - Skin Skin Exam: Dry, Normal Color, Warm Assessment and Plan (1) Anoxic encephalopathy Assessment & Plan: s/p cardiac arrest in 05/2015 no acute changes Pt has non spontaneous movements. continue current management. Continue tube feeds- at goal of 60 Florastor 250mg PO TID via PEG Status: Chronic (2) UTI (urinary tract infection) Assessment & Plan: resolved patient afebrile, WBC 10.5 Completed course of Amikacin and Meropenem. amikacin discontinued on 04/18 ( total 10), Meropenem (04/13) total 7 days Urine culture (04/06/17): + Proteus Mirabilis [place] catheter in place Tylenol 650mg po q6 PEG PRN Will follow up with Thursday WEEKLY labs Status: Acute (3) Urinary retention Assessment & Plan: Take note condom cath not always securely in place so Is and Os are approximate as patient does wet bed Flomax 0.4mg PEG daily Proscar 5mg PEG daily continue Bethanecol 50mg PEG TID- started after persistent retention and found to be effective. monitor I's and O's Check bladder scan for residual urine three times weekly Status: Acute (4) Watery stools Assessment & Plan: Recent completion of Merrem, Amikacin C. diff negative (04/26/17) Stool leukocytes negative (04/26/17) stool culture (04/26/17) negative Status: Acute (5) Respiratory failure Assessment & Plan: Trach in place, continue daily monitoring for secretions. No change in management at this time. Continue with aggressive suctioning multiple times a day per respiratory therapist. Monitor for signs of respiratory distress Thick secretions Duoneb 3ml INH Q8 and Mucomyst 4ml INH Q6H Robitussin 100mg PEG Q12H Status: Chronic (6) Sacral ulcer Assessment & Plan: Healed Cont with offloading/cushioning/turning Continue frequent turning, protective ointment and skin checks. Status: Acute (7) History of coronary artery disease Assessment & Plan: s/p cardiac stents on 06/13/15 Cont ASA 81mg via PEG daily Cont Coreg 3.125mg PEG BID Cont Plavix 75mg PO daily Status: Acute (8) Seizures Assessment & Plan: Cont Keppra 500mg PEG BID for seizure prophylaxis Monitor for activity Status: Acute (9) Lower extremity edema Assessment & Plan: Improved Continue to monitor Status: Acute (10) Prophylactic measure Assessment & Plan: Pepcid 20 mg PEG BID Lovenox 30mg SC daily SCDs and offloading boots continue to turn and reposition q2hrs Feeds increased to 60cc/hr. Per ecologist technician (05/02/17): tube feed goal: Isosource 1.5 @ 60cc/h Will continue tube feeds @ 60 unless patient cannot tolerate Continue to monitor medication administrations and clinical presentation weekly labs. Status: Acute <Donnell Ying M - Last Filed: 05/12/17 07:48> Objective - Vital Signs/Intake and Output Vital Signs (last 24 hours): Temp Pulse Resp BP Pulse Ox 98.2 F 96 H 20 123/75 98 05/12/17 00:01 05/12/17 00:01 05/12/17 00:01 05/12/17 00:01 05/12/17 00:01 Intake and Output: 05/12/17 05/12/17 06:59 18:59 Intake Total 1360 Output Total 900 Balance 460 - Medications Medications: Current Medications Acetaminophen (Tylenol 650mg/20.3ml Solution Ud) 650 mg PEG Q6 PRN PRN Reason: Fever >100.4 F Last Admin: 04/07/17 02:45 Dose: 650 mg Acetylcysteine (Acetylcysteine 20%) 4 ml INH RQ6 [facility] Last Admin: 05/12/17 07:27 Dose: 4 ml Albuterol/Ipratropium (Duoneb 3 Mg/0.5 Mg (3 Ml) Ud) 3 ml INH RQ8 [facility] Last Admin: 05/12/17 07:27 Dose: 3 ml Aspirin (Aspirin Chewable) 81 mg PO DAILY [facility] Last Admin: 05/11/17 10:30 Dose: 81 mg Bethanechol Chloride (Urecholine) 50 mg PEG TID [facility] Last Admin: 05/11/17 18:52 Dose: 50 mg Carvedilol (Coreg) 3.125 mg PEG BID [facility] Last Admin: 05/11/17 18:52 Dose: 3.125 mg Clopidogrel Bisulfate (Plavix) 75 mg PO DAILY [facility] Last Admin: 05/11/17 10:28 Dose: 75 mg Enoxaparin Sodium (Lovenox) 30 mg SC DAILY [facility] Last Admin: 05/11/17 10:30 Dose: 30 mg Famotidine (Pepcid) 20 mg PEG BID [facility] Last Admin: 05/11/17 18:52 Dose: 20 mg Finasteride (Proscar) 5 mg PO DAILY [facility] Last Admin: 05/11/17 10:30 Dose: 5 mg Guaifenesin (Robitussin) 100 mg PEG Q12H [facility] Last Admin: 05/11/17 23:50 Dose: 100 mg Levetiracetam (Keppra) 500 mg PO BID [facility] Last Admin: 06/19/17 18:53 Dose: 500 mg Saccharomyces Boulardii (Florastor) 250 mg PO DAILY [facility] Last Admin: 05/11/17 10:28 Dose: 250 mg Scopolamine (Transderm-Scop) 1 patch TD Q3D [facility] Last Admin: 05/11/17 10:29 Dose: 1 patch Tamsulosin HCl (Flomax) 0.4 mg PO DAILY [facility] Last Admin: 05/11/17 10:29 Dose: 0.4 mg - Labs Labs: 05/11/17 06:04 05/11/17 06:04 PT 10.6 SECONDS (9.7-12.2) 11/24/15 14:10 INR 1.0 11/24/15 14:10 APTT 25 SECONDS (21-34) 11/24/15 14:10 Attending/Attestation - Attestation I have personally seen and examined this patient.: Yes I have fully participated in the care of the patient.: Yes I have reviewed all pertinent clinical information, including history, physical exam and plan: Yes Notes (Text): 05/12/17 07:47 Patient was seen and examined at bedside with the resident No change in clinical condition. Continue local care of the tracheostomy site and the wound care. Continue frequent suctioning. Medications reviewed. Labs noted. I discussed the plan of care with the resident and agree with the history and physical and assessment/plan by the resident.
[2017-05-12] MEDS: Albuterol-Ipratrop 3 mg / 0.5 (3 ml) UD INH SCH ×3 (02:00→19:43)
[2017-05-12] MEDS: Acetylcysteine 20% Inhal Soln (4ml) INH SCH ×4 (02:00→19:43)
--- NOTE | 2017-05-12 07:47 | CP.PCM.PN ---
<Vesna Turpin - Last Filed: 05/12/17 18:32> Subjective - Date & Time of Evaluation Date of Evaluation: 05/12/17 Time of Evaluation: 17:34 - Subjective Subjective: Medicine Progress Note- Dr. Ying Service: Patient was seen and examined at [facility] in no acute distress. Patient has been monitored for secretions. Patient unable to respond questions and review of systems due to anoxic brain injury. Objective - Vital Signs/Intake and Output Vital Signs (last 24 hours): Temp Pulse Resp BP Pulse Ox 98.2 F 96 H 20 123/75 98 05/12/17 00:01 05/12/17 00:01 05/12/17 00:01 05/12/17 00:01 05/12/17 00:01 Intake and Output: 05/12/17 05/12/17 06:59 18:59 Intake Total 1360 Output Total 900 Balance 460 - Medications Medications: Current Medications Acetaminophen (Tylenol 650mg/20.3ml Solution Ud) 650 mg PEG Q6 PRN PRN Reason: Fever >100.4 F Last Admin: 04/07/17 02:45 Dose: 650 mg Acetylcysteine (Acetylcysteine 20%) 4 ml INH RQ6 [facility] Last Admin: 05/12/17 07:27 Dose: 4 ml Albuterol/Ipratropium (Duoneb 3 Mg/0.5 Mg (3 Ml) Ud) 3 ml INH RQ8 [facility] Last Admin: 05/12/17 07:27 Dose: 3 ml Aspirin (Aspirin Chewable) 81 mg PO DAILY [facility] Last Admin: 05/11/17 10:30 Dose: 81 mg Bethanechol Chloride (Urecholine) 50 mg PEG TID [facility] Last Admin: 05/11/17 18:52 Dose: 50 mg Carvedilol (Coreg) 3.125 mg PEG BID [facility] Last Admin: 05/11/17 18:52 Dose: 3.125 mg Clopidogrel Bisulfate (Plavix) 75 mg PO DAILY [facility] Last Admin: 05/11/17 10:28 Dose: 75 mg Enoxaparin Sodium (Lovenox) 30 mg SC DAILY [facility] Last Admin: 05/11/17 10:30 Dose: 30 mg Famotidine (Pepcid) 20 mg PEG BID [facility] Last Admin: 05/11/17 18:52 Dose: 20 mg Finasteride (Proscar) 5 mg PO DAILY [facility] Last Admin: 05/11/17 10:30 Dose: 5 mg Guaifenesin (Robitussin) 100 mg PEG Q12H [facility] Last Admin: 05/11/17 23:50 Dose: 100 mg Levetiracetam (Keppra) 500 mg PO BID [facility] Last Admin: 05/11/17 18:53 Dose: 500 mg Saccharomyces Boulardii (Florastor) 250 mg PO DAILY [facility] Last Admin: 05/11/17 10:28 Dose: 250 mg Scopolamine (Transderm-Scop) 1 patch TD Q3D [facility] Last Admin: 05/11/17 10:29 Dose: 1 patch Tamsulosin HCl (Flomax) 0.4 mg PO DAILY [facility] Last Admin: 05/11/17 10:29 Dose: 0.4 mg - Labs Labs: 05/11/17 06:04 05/11/17 06:04 PT 10.6 SECONDS (9.7-12.2) 11/24/15 14:10 INR 1.0 11/24/15 14:10 APTT 25 SECONDS (21-34) 11/24/15 14:10 - Constitutional Appears: Non-toxic, No Acute Distress - Head Exam Head Exam: NORMAL INSPECTION, NORMOCEPHALIC - Eye Exam Eye Exam: Normal appearance - ENT Exam ENT Exam: Mucous Membranes Moist - Neck Exam Neck Exam: absent: Full ROM, Normal Inspection Additional comments: trach in place - Respiratory Exam Respiratory Exam: Prolonged Expiratory Phase, Rhonchi, Wheezes, NORMAL BREATHING PATTERN - Cardiovascular Exam Cardiovascular Exam: +S1, +S2 - GI/Abdominal Exam GI & Abdominal Exam: Soft, Normal Bowel Sounds - Extremities Exam Extremities Exam: absent: Pedal Edema - Neurological Exam Neurological Exam: Altered. absent: Alert, Oriented x3 - Skin Skin Exam: Intact, Rash Additional comments: sacral base ulcer examine- healing well and monitored Assessment and Plan (1) Anoxic encephalopathy Assessment & Plan: s/p cardiac arrest in 05/2015 no acute changes Pt has non spontaneous movements. continue current management. Continue tube feeds- at goal of 60 Florastor 250mg PO TID via PEG Status: Chronic (2) UTI (urinary tract infection) Assessment & Plan: resolved patient afebrile, WBC 10.5 Completed course of Amikacin and Meropenem. amikacin discontinued on 04/18 ( total 10), Meropenem (04/13) total 7 days Urine culture (04/06/17): + Proteus Mirabilis [place] catheter in place Tylenol 650mg po q6 PEG PRN Will follow up with Thursday WEEKLY labs Status: Acute (3) Urinary retention Assessment & Plan: Take note condom cath not always securely in place so Is and Os are approximate as patient does wet bed Flomax 0.4mg PEG daily Proscar 5mg PEG daily continue Bethanecol 50mg PEG TID- started after persistent retention and found to be effective. monitor I's and O's Check bladder scan for residual urine three times weekly Status: Acute (4) Watery stools Assessment & Plan: Recent completion of Merrem, Amikacin C. diff negative (04/26/17) Stool leukocytes negative (04/26/17) stool culture (04/26/17) negativ Status: Acute (5) Respiratory failure Assessment & Plan: Trach in place, continue daily monitoring for secretions. No change in management at this time. Continue with aggressive suctioning multiple times a day per respiratory therapist. Monitor for signs of respiratory distress Thick secretions Duoneb 3ml INH Q6 and Mucomyst 4ml INH Q6H Robitussin 100mg PEG Q12H Scopolamine 1 patch TD Q3D JOO Status: Chronic (6) Sacral ulcer Assessment & Plan: Healed Cont with offloading/cushioning/turning Continue frequent turning, protective ointment and skin checks. Status: Acute (7) History of coronary artery disease Assessment & Plan: s/p cardiac stents on 06/13/15 Cont ASA 81mg via PEG daily Cont Coreg 3.125mg PEG BID Cont Plavix 75mg PO daily Status: Acute (8) Seizures Assessment & Plan: Cont Keppra 500mg PEG BID for seizure prophylaxis Monitor for activity Status: Acute (9) Lower extremity edema Assessment & Plan: Improved Continue to monitor Status: Acute (10) Prophylactic measure Assessment & Plan: Pepcid 20 mg PEG BID Lovenox 30mg SC daily SCDs and offloading boots continue to turn and reposition q2hrs Feeds increased to 60cc/hr. Per handy man (05/02/17): tube feed goal: Isosource 1.5 @ 60cc/h Will continue tube feeds @ 60 unless patient cannot tolerate Continue to monitor medication administrations and clinical presentation weekly labs. Status: Acute <Donnell Ying M - Last Filed: 05/13/17 16:43> Objective - Vital Signs/Intake and Output Vital Signs (last 24 hours): Temp Pulse Resp BP Pulse Ox 98.5 F 70 20 91/63 L 99 05/13/17 08:01 05/13/17 08:01 05/13/17 08:01 05/13/17 08:01 05/13/17 08:01 Intake and Output: 05/13/17 05/13/17 06:59 18:59 Intake Total 1360 Output Total 700 300 Balance 660 -300 - Medications Medications: Current Medications Acetaminophen (Tylenol 650mg/20.3ml Solution Ud) 650 mg PEG Q6 PRN PRN Reason: Fever >100.4 F Last Admin: 04/07/17 02:45 Dose: 650 mg Acetylcysteine (Acetylcysteine 20%) 4 ml INH RQ6 [facility] Last Admin: 05/13/17 13:33 Dose: 4 ml Albuterol/Ipratropium (Duoneb 3 Mg/0.5 Mg (3 Ml) Ud) 3 ml INH RQ6 [facility] Last Admin: 05/13/17 13:33 Dose: 3 ml Aspirin (Aspirin Chewable) 81 mg PO DAILY [facility] Last Admin: 05/13/17 10:56 Dose: 81 mg Bethanechol Chloride (Urecholine) 50 mg PEG TID [facility] Last Admin: 05/13/17 14:25 Dose: 50 mg Carvedilol (Coreg) 3.125 mg PEG BID [facility] Last Admin: 05/13/17 10:56 Dose: 3.125 mg Clopidogrel Bisulfate (Plavix) 75 mg PO DAILY [facility] Last Admin: 05/13/17 10:55 Dose: 75 mg Enoxaparin Sodium (Lovenox) 30 mg SC DAILY [facility] Last Admin: 05/13/17 10:56 Dose: 30 mg Famotidine (Pepcid) 20 mg PEG BID [facility] Last Admin: 05/13/17 10:55 Dose: 20 mg Finasteride (Proscar) 5 mg PO DAILY [facility] Last Admin: 05/13/17 10:56 Dose: 5 mg Guaifenesin (Robitussin) 100 mg PEG Q12H [facility] Last Admin: 05/13/17 10:56 Dose: 100 mg Levetiracetam (Keppra) 500 mg PO BID [facility] Last Admin: 05/13/17 10:55 Dose: 500 mg Saccharomyces Boulardii (Florastor) 250 mg PO DAILY [facility] Last Admin: 05/13/17 10:55 Dose: 250 mg Scopolamine (Transderm-Scop) 1 patch TD Q3D [facility] Last Admin: 05/11/17 10:29 Dose: 1 patch Tamsulosin HCl (Flomax) 0.4 mg PO DAILY [facility] Last Admin: 05/13/17 10:55 Dose: 0.4 mg - Labs Labs: 05/11/17 06:04 05/11/17 06:04 PT 10.6 SECONDS (9.7-12.2) 11/24/15 14:10 INR 1.0 11/24/15 14:10 APTT 25 SECONDS (21-34) 11/24/15 14:10 Attending/Attestation - Attestation I have personally seen and examined this patient.: Yes I have fully participated in the care of the patient.: Yes I have reviewed all pertinent clinical information, including history, physical exam and plan: Yes Notes (Text): 05/13/17 16:40 Patient seen and examined at bedside Discussed the plan of care with the resident I agree with above history and physical and assessment/plan by the resident.
[2017-05-12] MEDS: Saccharomyces Boulardi 250 mg Cap PO SCH (11:02)
[2017-05-12] MEDS: Enoxaparin 30 mg Syringe SC SCH (11:03)
[2017-05-12] MEDS: guaiFENesin 100 mg/5 ml Syrup UD PEG SCH ×2 (11:06→23:34)
[2017-05-13] MEDS: Acetylcysteine 20% Inhal Soln (4ml) INH SCH ×4 (02:10→20:39)
[2017-05-13] MEDS: Albuterol-Ipratrop 3 mg / 0.5 (3 ml) UD INH SCH ×4 (02:10→20:39)
[2017-05-13] MEDS: Saccharomyces Boulardi 250 mg Cap PO SCH (10:55)
[2017-05-13] MEDS: guaiFENesin 100 mg/5 ml Syrup UD PEG SCH ×2 (10:56→23:30)
[2017-05-13] MEDS: Enoxaparin 30 mg Syringe SC SCH (10:56)
--- NOTE | 2017-05-13 14:06 | CP.PCM.PN ---
<Vesna Turpin - Last Filed: 05/13/17 21:46> Subjective - Date & Time of Evaluation Date of Evaluation: 05/13/17 Time of Evaluation: 14:06 - Subjective Subjective: Medicine Progress Note- Dr. Ying Service Patient was seen and examine at beside in no acute distress. Patient unable to respond to review of systems due to anoxic brain injury that occurred in 2014. Objective - Vital Signs/Intake and Output Vital Signs (last 24 hours): Temp Pulse Resp BP Pulse Ox 98.5 F 70 20 91/63 L 99 05/13/17 08:01 05/13/17 08:01 05/13/17 08:01 05/13/17 08:01 05/13/17 08:01 Intake and Output: 05/13/17 05/13/17 06:59 18:59 Intake Total 1360 Output Total 700 Balance 660 - Medications Medications: Current Medications Acetaminophen (Tylenol 650mg/20.3ml Solution Ud) 650 mg PEG Q6 PRN PRN Reason: Fever >100.4 F Last Admin: 04/07/17 02:45 Dose: 650 mg Acetylcysteine (Acetylcysteine 20%) 4 ml INH RQ6 [facility] Last Admin: 05/13/17 13:33 Dose: 4 ml Albuterol/Ipratropium (Duoneb 3 Mg/0.5 Mg (3 Ml) Ud) 3 ml INH RQ6 [facility] Last Admin: 05/13/17 13:33 Dose: 3 ml Aspirin (Aspirin Chewable) 81 mg PO DAILY [facility] Last Admin: 05/13/17 10:56 Dose: 81 mg Bethanechol Chloride (Urecholine) 50 mg PEG TID [facility] Last Admin: 05/13/17 10:55 Dose: 50 mg Carvedilol (Coreg) 3.125 mg PEG BID [facility] Last Admin: 05/13/17 10:56 Dose: 3.125 mg Clopidogrel Bisulfate (Plavix) 75 mg PO DAILY [facility] Last Admin: 05/13/17 10:55 Dose: 75 mg Enoxaparin Sodium (Lovenox) 30 mg SC DAILY [facility] Last Admin: 05/13/17 10:56 Dose: 30 mg Famotidine (Pepcid) 20 mg PEG BID [facility] Last Admin: 05/13/17 10:55 Dose: 20 mg Finasteride (Proscar) 5 mg PO DAILY [facility] Last Admin: 05/13/17 10:56 Dose: 5 mg Guaifenesin (Robitussin) 100 mg PEG Q12H [facility] Last Admin: 05/13/17 10:56 Dose: 100 mg Levetiracetam (Keppra) 500 mg PO BID [facility] Last Admin: 05/13/17 10:55 Dose: 500 mg Saccharomyces Boulardii (Florastor) 250 mg PO DAILY [facility] Last Admin: 05/13/17 10:55 Dose: 250 mg Scopolamine (Transderm-Scop) 1 patch TD Q3D [facility] Last Admin: 05/11/17 10:29 Dose: 1 patch Tamsulosin HCl (Flomax) 0.4 mg PO DAILY [facility] Last Admin: 05/13/17 10:55 Dose: 0.4 mg - Labs Labs: 05/11/17 06:04 05/11/17 06:04 PT 10.6 SECONDS (9.7-12.2) 11/24/15 14:10 INR 1.0 11/24/15 14:10 APTT 25 SECONDS (21-34) 11/24/15 14:10 - Constitutional Appears: No Acute Distress - Head Exam Head Exam: NORMAL INSPECTION, NORMOCEPHALIC - Eye Exam Eye Exam: Normal appearance - ENT Exam ENT Exam: Mucous Membranes Moist - Neck Exam Neck Exam: absent: Full ROM Additional comments: trach in place - Respiratory Exam Respiratory Exam: Decreased Breath Sounds, Prolonged Expiratory Phase, Wheezes - Cardiovascular Exam Cardiovascular Exam: REGULAR RHYTHM, +S1, +S2 - GI/Abdominal Exam GI & Abdominal Exam: Soft, Diminished Bowel Sounds - Extremities Exam Extremities Exam: absent: Pedal Edema - Neurological Exam Neurological Exam: Altered. absent: Alert, Awake, Oriented x3 - Psychiatric Exam Psychiatric exam: absent: Normal Affect, Normal Mood - Skin Skin Exam: Normal Color, Warm Additional comments: sacral ulcer healed. Assessment and Plan (1) Anoxic encephalopathy Assessment & Plan: s/p cardiac arrest in 05/2015 no acute changes Pt has non spontaneous movements. continue current management. Continue tube feeds- at goal of 60 Florastor 250mg PO TID via PEG Status: Chronic (2) UTI (urinary tract infection) Assessment & Plan: resolved patient afebrile, WBC 10.5 Completed course of Amikacin and Meropenem. amikacin discontinued on 04/18 ( total 10), Meropenem (5/22) total 7 days Urine culture (04/06/17): + Proteus Mirabilis [place] catheter in place Tylenol 650mg po q6 PEG PRN Will follow up with Thursday WEEKLY labs Status: Resolved (3) Urinary retention Assessment & Plan: Take note condom cath not always securely in place so Is and Os are approximate as patient does wet bed Flomax 0.4mg PEG daily Proscar 5mg PEG daily continue Bethanecol 50mg PEG TID- started after persistent retention and found to be effective. monitor I's and O's Check bladder scan for residual urine three times weekly Status: Acute (4) Watery stools Assessment & Plan: Recent completion of Merrem, Amikacin C. diff negative (04/26/17) Stool leukocytes negative (04/26/17) stool culture (04/26/17) negative Status: Resolved (5) Respiratory failure Assessment & Plan: Trach in place, continue daily monitoring for secretions. No change in management at this time. Continue with aggressive suctioning multiple times a day per respiratory therapist. Monitor for signs of respiratory distress Thick secretions Duoneb 3ml INH Q6 and Mucomyst 4ml INH Q6H Robitussin 100mg PEG Q12H Scopolamine 1 patch TD Q3D JOO Status: Chronic (6) Sacral ulcer Assessment & Plan: Healed Cont with offloading/cushioning/turning Continue frequent turning, protective ointment and skin checks. Status: Acute (7) History of coronary artery disease Assessment & Plan: s/p cardiac stents on 06/13/15 Cont ASA 81mg via PEG daily Cont Coreg 3.125mg PEG BID Cont Plavix 75mg PO daily Status: Acute (8) Seizures Assessment & Plan: Cont Keppra 500mg PEG BID for seizure prophylaxis Monitor for activity Status: Acute (9) Lower extremity edema Assessment & Plan: Improved Continue to monitor Status: Acute (10) Prophylactic measure Assessment & Plan: Pepcid 20 mg PEG BID Lovenox 30mg SC daily SCDs and offloading boots continue to turn and reposition q2hrs Feeds increased to 60cc/hr. Per knitter hand (05/02/17): tube feed goal: Isosource 1.5 @ 60cc/h Will continue tube feeds @ 60 unless patient cannot tolerate Continue to monitor medication administrations and clinical presentation weekly labs. Status: Acute <Stepan,Donnell M - Last Filed: 05/14/17 15:44> Objective - Vital Signs/Intake and Output Vital Signs (last 24 hours): Temp Pulse Resp BP Pulse Ox 98.4 F 71 20 100/66 97 05/14/17 08:16 05/14/17 08:16 05/14/17 08:16 05/14/17 08:16 05/14/17 08:16 Intake and Output: 05/14/17 05/14/17 06:59 18:59 Intake Total 1360 Output Total 700 300 Balance 660 -300 - Medications Medications: Current Medications Acetaminophen (Tylenol 650mg/20.3ml Solution Ud) 650 mg PEG Q6 PRN PRN Reason: Fever >100.4 F Last Admin: 04/07/17 02:45 Dose: 650 mg Acetylcysteine (Acetylcysteine 20%) 4 ml INH RQ6 [facility] Last Admin: 05/14/17 14:48 Dose: 4 ml Albuterol/Ipratropium (Duoneb 3 Mg/0.5 Mg (3 Ml) Ud) 3 ml INH RQ6 [facility] Last Admin: 05/14/17 14:48 Dose: 3 ml Aspirin (Aspirin Chewable) 81 mg PO DAILY [facility] Last Admin: 05/14/17 11:07 Dose: 81 mg Bethanechol Chloride (Urecholine) 50 mg PEG TID [facility] Last Admin: 05/14/17 14:02 Dose: 50 mg Carvedilol (Coreg) 3.125 mg PEG BID [facility] Last Admin: 05/14/17 11:07 Dose: 3.125 mg Clopidogrel Bisulfate (Plavix) 75 mg PO DAILY [facility] Last Admin: 05/14/17 11:07 Dose: 75 mg Enoxaparin Sodium (Lovenox) 30 mg SC DAILY [facility] Last Admin: 05/14/17 11:07 Dose: 30 mg Famotidine (Pepcid) 20 mg PEG BID [facility] Last Admin: 05/14/17 11:07 Dose: 20 mg Finasteride (Proscar) 5 mg PO DAILY [facility] Last Admin: 05/14/17 11:06 Dose: 5 mg Guaifenesin (Robitussin) 100 mg PEG Q12H [facility] Last Admin: 05/14/17 11:06 Dose: 100 mg Levetiracetam (Keppra) 500 mg PO BID [facility] Last Admin: 05/14/17 11:07 Dose: 500 mg Saccharomyces Boulardii (Florastor) 250 mg PO DAILY [facility] Last Admin: 05/14/17 11:07 Dose: 250 mg Scopolamine (Transderm-Scop) 1 patch TD Q3D [facility] Last Admin: 05/14/17 11:06 Dose: 1 patch Tamsulosin HCl (Flomax) 0.4 mg PO DAILY [facility] Last Admin: 05/14/17 11:07 Dose: 0.4 mg - Labs Labs: 05/11/17 06:04 05/11/17 06:04 PT 10.6 SECONDS (9.7-12.2) 11/24/15 14:10 INR 1.0 11/24/15 14:10 APTT 25 SECONDS (21-34) 11/24/15 14:10 Attending/Attestation - Attestation I have personally seen and examined this patient.: Yes I have fully participated in the care of the patient.: Yes I have reviewed all pertinent clinical information, including history, physical exam and plan: Yes Notes (Text): 05/14/17 15:44 Patient was seen and examined bedside with the resident No change in clinical condition Continue current management I agree with the assessment plan by the resident.
[2017-05-14] MEDS: Acetylcysteine 20% Inhal Soln (4ml) INH SCH ×4 (01:03→20:17)
[2017-05-14] MEDS: Albuterol-Ipratrop 3 mg / 0.5 (3 ml) UD INH SCH ×4 (01:03→20:17)
--- NOTE | 2017-05-14 08:55 | CP.PCM.PN ---
<Vesna Turpin - Last Filed: 05/14/17 13:26> Subjective - Date & Time of Evaluation Date of Evaluation: 05/14/17 Time of Evaluation: 08:55 - Subjective Subjective: Medicine Progress Note- Dr Ying Service Patient was seen and examed at bedside. Patient was in no acute distress. Patient is unable to respond to questions and review of systems due to anoxic brain injury (05/2015). Objective - Vital Signs/Intake and Output Vital Signs (last 24 hours): Temp Pulse Resp BP Pulse Ox 98.4 F 71 20 100/66 97 05/14/17 08:16 05/14/17 08:16 05/14/17 08:16 05/14/17 08:16 05/14/17 08:16 Intake and Output: 05/14/17 05/14/17 06:59 18:59 Intake Total 1360 Output Total 700 Balance 660 - Medications Medications: Current Medications Acetaminophen (Tylenol 650mg/20.3ml Solution Ud) 650 mg PEG Q6 PRN PRN Reason: Fever >100.4 F Last Admin: 04/07/17 02:45 Dose: 650 mg Acetylcysteine (Acetylcysteine 20%) 4 ml INH RQ6 [facility] Last Admin: 05/14/17 08:19 Dose: 4 ml Albuterol/Ipratropium (Duoneb 3 Mg/0.5 Mg (3 Ml) Ud) 3 ml INH RQ6 [facility] Last Admin: 05/14/17 08:19 Dose: 3 ml Aspirin (Aspirin Chewable) 81 mg PO DAILY [facility] Last Admin: 05/13/17 10:56 Dose: 81 mg Bethanechol Chloride (Urecholine) 50 mg PEG TID [facility] Last Admin: 05/13/17 17:05 Dose: 50 mg Carvedilol (Coreg) 3.125 mg PEG BID [facility] Last Admin: 05/13/17 17:05 Dose: 3.125 mg Clopidogrel Bisulfate (Plavix) 75 mg PO DAILY [facility] Last Admin: 05/13/17 10:55 Dose: 75 mg Enoxaparin Sodium (Lovenox) 30 mg SC DAILY [facility] Last Admin: 05/13/17 10:56 Dose: 30 mg Famotidine (Pepcid) 20 mg PEG BID [facility] Last Admin: 05/13/17 17:05 Dose: 20 mg Finasteride (Proscar) 5 mg PO DAILY [facility] Last Admin: 05/13/17 10:56 Dose: 5 mg Guaifenesin (Robitussin) 100 mg PEG Q12H [facility] Last Admin: 05/13/17 23:30 Dose: 100 mg Levetiracetam (Keppra) 500 mg PO BID [facility] Last Admin: 05/13/17 17:05 Dose: 500 mg Saccharomyces Boulardii (Florastor) 250 mg PO DAILY [facility] Last Admin: 05/13/17 10:55 Dose: 250 mg Scopolamine (Transderm-Scop) 1 patch TD Q3D [facility] Last Admin: 05/11/17 10:29 Dose: 1 patch Tamsulosin HCl (Flomax) 0.4 mg PO DAILY [facility] Last Admin: 05/13/17 10:55 Dose: 0.4 mg - Labs Labs: 05/11/17 06:04 05/11/17 06:04 PT 10.6 SECONDS (9.7-12.2) 11/24/15 14:10 INR 1.0 11/24/15 14:10 APTT 25 SECONDS (21-34) 11/24/15 14:10 - Constitutional Appears: No Acute Distress - Head Exam Head Exam: NORMAL INSPECTION, NORMOCEPHALIC - Eye Exam Eye Exam: absent: EOMI - ENT Exam ENT Exam: Mucous Membranes Moist - Neck Exam Neck Exam: absent: Full ROM Additional comments: trach in place - Respiratory Exam Respiratory Exam: Decreased Breath Sounds, Rhonchi, Wheezes. absent: Clear to Ausculation Bilateral Additional comments: improved; decreased rhonchi and wheezing - Cardiovascular Exam Cardiovascular Exam: REGULAR RHYTHM, +S1, +S2 - GI/Abdominal Exam GI & Abdominal Exam: Soft, Normal Bowel Sounds - Extremities Exam Extremities Exam: Normal Inspection. absent: Full ROM - Neurological Exam Neurological Exam: Altered. absent: Alert, Awake, Oriented x3 - Psychiatric Exam Psychiatric exam: Flat Affect. absent: Normal Affect, Normal Mood - Skin Skin Exam: Dry, Intact, Normal Color, Warm Additional comments: healed sacral ulcer Assessment and Plan (1) Anoxic encephalopathy Assessment & Plan: s/p cardiac arrest in 05/2015 no acute changes Pt has non spontaneous movements. continue current management. Continue tube feeds- at goal of 60 Florastor 250mg PO TID via PEG Status: Chronic (2) UTI (urinary tract infection) Assessment & Plan: resolved patient afebrile, WBC 10.5 Completed course of Amikacin and Meropenem. amikacin discontinued on 04/18 ( total 10), Meropenem (04/13) total 7 days Urine culture (04/06/17): + Proteus Mirabilis [place] catheter in place Tylenol 650mg po q6 PEG PRN Will follow up with Thursday WEEKLY labs Status: Resolved (3) Urinary retention Assessment & Plan: Take note condom cath not always securely in place so Is and Os are approximate as patient does wet bed Flomax 0.4mg PEG daily Proscar 5mg PEG daily continue Bethanecol 50mg PEG TID- started after persistent retention and found to be effective. monitor I's and O's Check bladder scan for residual urine three times weekly Status: Acute (4) Watery stools Assessment & Plan: Recent completion of Merrem, Amikacin C. diff negative (04/26/17) Stool leukocytes negative (04/26/17) stool culture (04/26/17) negative Status: Resolved (5) Respiratory failure Assessment & Plan: Trach in place, continue daily monitoring for secretions. No change in management at this time. Continue with aggressive suctioning multiple times a day per respiratory therapist. Monitor for signs of respiratory distress Thick secretions Duoneb 3ml INH Q6 and Mucomyst 4ml INH Q6H Robitussin 100mg PEG Q12H Scopolamine 1 patch TD Q3D JOO Status: Chronic (6) Sacral ulcer Assessment & Plan: Healed Cont with offloading/cushioning/turning Continue frequent turning, protective ointment and skin checks. Status: Acute (7) History of coronary artery disease Assessment & Plan: s/p cardiac stents on 06/13/15 Cont ASA 81mg via PEG daily Cont Coreg 3.125mg PEG BID Cont Plavix 75mg PO daily Status: Acute (8) Seizures Assessment & Plan: Cont Keppra 500mg PEG BID for seizure prophylaxis Monitor for activity Status: Acute (9) Lower extremity edema Assessment & Plan: Improved Continue to monitor Status: Acute (10) Prophylactic measure Assessment & Plan: Pepcid 20 mg PEG BID Lovenox 30mg SC daily SCDs and offloading boots continue to turn and reposition q2hrs Feeds increased to 60cc/hr. Per acid remover (05/02/17): tube feed goal: Isosource 1.5 @ 60cc/h Will continue tube feeds @ 60 unless patient cannot tolerate Continue to monitor medication administrations and clinical presentation weekly labs. Status: Acute <Donnell Ying M - Last Filed: 05/14/17 17:03> Objective - Vital Signs/Intake and Output Vital Signs (last 24 hours): Temp Pulse Resp BP Pulse Ox 98.3 F 82 20 106/69 97 05/14/17 16:00 05/14/17 16:00 05/14/17 16:00 05/14/17 16:00 05/14/17 16:00 Intake and Output: 05/14/17 05/14/17 06:59 18:59 Intake Total 1360 Output Total 700 300 Balance 660 -300 - Medications Medications: Current Medications Acetaminophen (Tylenol 650mg/20.3ml Solution Ud) 650 mg PEG Q6 PRN PRN Reason: Fever >100.4 F Last Admin: 04/07/17 02:45 Dose: 650 mg Acetylcysteine (Acetylcysteine 20%) 4 ml INH RQ6 [facility] Last Admin: 05/14/17 14:48 Dose: 4 ml Albuterol/Ipratropium (Duoneb 3 Mg/0.5 Mg (3 Ml) Ud) 3 ml INH RQ6 [facility] Last Admin: 05/14/17 14:48 Dose: 3 ml Aspirin (Aspirin Chewable) 81 mg PO DAILY [facility] Last Admin: 05/14/17 11:07 Dose: 81 mg Bethanechol Chloride (Urecholine) 50 mg PEG TID [facility] Last Admin: 05/14/17 14:02 Dose: 50 mg Carvedilol (Coreg) 3.125 mg PEG BID [facility] Last Admin: 05/14/17 11:07 Dose: 3.125 mg Clopidogrel Bisulfate (Plavix) 75 mg PO DAILY [facility] Last Admin: 05/14/17 11:07 Dose: 75 mg Enoxaparin Sodium (Lovenox) 30 mg SC DAILY [facility] Last Admin: 05/14/17 11:07 Dose: 30 mg Famotidine (Pepcid) 20 mg PEG BID [facility] Last Admin: 05/14/17 11:07 Dose: 20 mg Finasteride (Proscar) 5 mg PO DAILY [facility] Last Admin: 05/14/17 11:06 Dose: 5 mg Guaifenesin (Robitussin) 100 mg PEG Q12H [facility] Last Admin: 05/14/17 11:06 Dose: 100 mg Levetiracetam (Keppra) 500 mg PO BID [facility] Last Admin: 05/14/17 11:07 Dose: 500 mg Saccharomyces Boulardii (Florastor) 250 mg PO DAILY [facility] Last Admin: 05/14/17 11:07 Dose: 250 mg Scopolamine (Transderm-Scop) 1 patch TD Q3D [facility] Last Admin: 05/14/17 11:06 Dose: 1 patch Tamsulosin HCl (Flomax) 0.4 mg PO DAILY [facility] Last Admin: 05/14/17 11:07 Dose: 0.4 mg - Labs Labs: 05/11/17 06:04 05/11/17 06:04 PT 10.6 SECONDS (9.7-12.2) 11/24/15 14:10 INR 1.0 11/24/15 14:10 APTT 25 SECONDS (21-34) 11/24/15 14:10 Attending/Attestation - Attestation I have personally seen and examined this patient.: Yes I have fully participated in the care of the patient.: Yes I have reviewed all pertinent clinical information, including history, physical exam and plan: Yes Notes (Text): 05/14/17 17:01 Patient was seen and examined at bedside with the resident This is no change in clinical condition Continue to turn and position patient every 2 hours Continue local care of the PEG and trach site. Continue frequent suctioning. We will continue current management I agree with the history and physical and assessment/plan by the resident.
[2017-05-14] MEDS: guaiFENesin 100 mg/5 ml Syrup UD PEG SCH (11:06)
[2017-05-14] MEDS: Enoxaparin 30 mg Syringe SC SCH (11:07)
[2017-05-14] MEDS: Saccharomyces Boulardi 250 mg Cap PO SCH (11:07)
[2017-05-15] MEDS: guaiFENesin 100 mg/5 ml Syrup UD PEG SCH ×2 (00:09→10:22)
[2017-05-15] MEDS: Acetylcysteine 20% Inhal Soln (4ml) INH SCH ×4 (01:01→20:08)
[2017-05-15] MEDS: Albuterol-Ipratrop 3 mg / 0.5 (3 ml) UD INH SCH ×4 (01:01→20:10)
--- NOTE | 2017-05-15 07:49 | CP.PCM.PN ---
<Vesna Turpin - Last Filed: 05/15/17 19:44> Subjective - Date & Time of Evaluation Date of Evaluation: 05/15/17 Time of Evaluation: 07:49 - Subjective Subjective: Medicine Progress Note- Dr. Ying Service Patient was seen and examined at bedside in no acute distress. Patient is unable to answer questions or review of systems due to an anoxic brain injury (). Objective - Vital Signs/Intake and Output Vital Signs (last 24 hours): Temp Pulse Resp BP Pulse Ox 98.4 F 73 20 106/70 99 05/14/17 23:59 05/14/17 23:59 05/14/17 23:59 05/14/17 23:59 05/14/17 23:59 Intake and Output: 05/15/17 05/15/17 06:59 18:59 Intake Total 1360 Output Total 1000 Balance 360 - Medications Medications: Current Medications Acetaminophen (Tylenol 650mg/20.3ml Solution Ud) 650 mg PEG Q6 PRN PRN Reason: Fever >100.4 F Last Admin: 04/07/17 02:45 Dose: 650 mg Acetylcysteine (Acetylcysteine 20%) 4 ml INH RQ6 [facility] Last Admin: 05/15/17 01:01 Dose: 4 ml Albuterol/Ipratropium (Duoneb 3 Mg/0.5 Mg (3 Ml) Ud) 3 ml INH RQ6 [facility] Last Admin: 05/15/17 01:01 Dose: 3 ml Aspirin (Aspirin Chewable) 81 mg PO DAILY [facility] Last Admin: 05/14/17 11:07 Dose: 81 mg Bethanechol Chloride (Urecholine) 50 mg PEG TID [facility] Last Admin: 05/14/17 17:15 Dose: 50 mg Carvedilol (Coreg) 3.125 mg PEG BID [facility] Last Admin: 05/14/17 17:22 Dose: Not Given Clopidogrel Bisulfate (Plavix) 75 mg PO DAILY [facility] Last Admin: 05/14/17 11:07 Dose: 75 mg Enoxaparin Sodium (Lovenox) 30 mg SC DAILY [facility] Last Admin: 05/14/17 11:07 Dose: 30 mg Famotidine (Pepcid) 20 mg PEG BID [facility] Last Admin: 05/14/17 17:15 Dose: 20 mg Finasteride (Proscar) 5 mg PO DAILY [facility] Last Admin: 05/14/17 11:06 Dose: 5 mg Guaifenesin (Robitussin) 100 mg PEG Q12H [facility] Last Admin: 05/15/17 00:09 Dose: 100 mg Levetiracetam (Keppra) 500 mg PO BID [facility] Last Admin: 05/14/17 17:15 Dose: 500 mg Saccharomyces Boulardii (Florastor) 250 mg PO DAILY [facility] Last Admin: 05/14/17 11:07 Dose: 250 mg Scopolamine (Transderm-Scop) 1 patch TD Q3D [facility] Last Admin: 05/14/17 11:06 Dose: 1 patch Tamsulosin HCl (Flomax) 0.4 mg PO DAILY [facility] Last Admin: 05/14/17 11:07 Dose: 0.4 mg - Labs Labs: 05/11/17 06:04 05/11/17 06:04 PT 10.6 SECONDS (9.7-12.2) 11/24/15 14:10 INR 1.0 11/24/15 14:10 APTT 25 SECONDS (21-34) 11/24/15 14:10 - Constitutional Appears: No Acute Distress - Head Exam Head Exam: NORMAL INSPECTION, NORMOCEPHALIC - Eye Exam Eye Exam: EOMI, Normal appearance - ENT Exam ENT Exam: Mucous Membranes Moist - Neck Exam Neck Exam: absent: Full ROM Additional comments: trach in place - Respiratory Exam Respiratory Exam: Decreased Breath Sounds, NORMAL BREATHING PATTERN - Cardiovascular Exam Cardiovascular Exam: REGULAR RHYTHM, +S1, +S2 - GI/Abdominal Exam GI & Abdominal Exam: Soft, Normal Bowel Sounds - Extremities Exam Extremities Exam: Normal Inspection. absent: Pedal Edema - Neurological Exam Neurological Exam: Altered. absent: Alert, Awake, Oriented x3 - Psychiatric Exam Psychiatric exam: Flat Affect - Skin Skin Exam: Dry, Intact, Normal Color, Warm Additional comments: healed sacral ulcer Assessment and Plan (1) Anoxic encephalopathy Assessment & Plan: s/p cardiac arrest in 05/2015 no acute changes Pt has non spontaneous movements. continue current management. Continue tube feeds- at goal of 60 Florastor 250mg PO TID via PEG Status: Chronic (2) UTI (urinary tract infection) Assessment & Plan: resolved patient afebrile, WBC 10.5 Completed course of Amikacin and Meropenem. amikacin discontinued on 04/18 ( total 10), Meropenem (04/13) total 7 days Urine culture (04/06/17): + Proteus Mirabilis [place] catheter in place Tylenol 650mg po q6 PEG PRN Will follow up with Thursday WEEKLY labs Status: Resolved (3) Urinary retention Assessment & Plan: Take note condom cath not always securely in place so Is and Os are approximate as patient does wet bed Flomax 0.4mg PEG daily Proscar 5mg PEG daily continue Bethanecol 50mg PEG TID- started after persistent retention and found to be effective. monitor I's and O's Check bladder scan for residual urine three times weekly Status: Acute (4) Watery stools Assessment & Plan: Recent completion of Merrem, Amikacin C. diff negative (04/26/17) Stool leukocytes negative (04/26/17) stool culture (04/26/17) negative Status: Resolved (5) Respiratory failure Assessment & Plan: Trach in place, continue daily monitoring for secretions. No change in management at this time. Continue with aggressive suctioning multiple times a day per respiratory therapist. Monitor for signs of respiratory distress Thick secretions Duoneb 3ml INH Q6 and Mucomyst 4ml INH Q6H Robitussin 100mg PEG Q12H Scopolamine 1 patch TD Q3D JOO Status: Chronic (6) Sacral ulcer Assessment & Plan: Healed Cont with offloading/cushioning/turning Continue frequent turning, protective ointment and skin checks. Status: Acute (7) History of coronary artery disease Assessment & Plan: s/p cardiac stents on 06/13/15 Cont ASA 81mg via PEG daily Cont Coreg 3.125mg PEG BID Cont Plavix 75mg PO daily Status: Acute (8) Seizures Assessment & Plan: Cont Keppra 500mg PEG BID for seizure prophylaxis Monitor for activity Status: Acute (9) Lower extremity edema Assessment & Plan: Improved Continue to monitor Status: Acute (10) Prophylactic measure Assessment & Plan: Pepcid 20 mg PEG BID Lovenox 30mg SC daily SCDs and offloading boots continue to turn and reposition q2hrs Feeds increased to 60cc/hr. Per certified coder (05/02/17): tube feed goal: Isosource 1.5 @ 60cc/h Will continue tube feeds @ 60 unless patient cannot tolerate Continue to monitor medication administrations and clinical presentation weekly labs. Status: Acute <Stepan,Donnell M - Last Filed: 05/16/17 13:40> Objective - Vital Signs/Intake and Output Vital Signs (last 24 hours): Temp Pulse Resp BP Pulse Ox 98.6 F 90 20 128/72 98 05/16/17 08:00 05/16/17 08:00 05/16/17 08:00 05/16/17 08:00 05/16/17 08:00 Intake and Output: 05/16/17 05/16/17 06:59 18:59 Intake Total 1360 Output Total 1000 Balance 360 - Medications Medications: Current Medications Acetaminophen (Tylenol 650mg/20.3ml Solution Ud) 650 mg PEG Q6 PRN PRN Reason: Fever >100.4 F Last Admin: 04/07/17 02:45 Dose: 650 mg Acetylcysteine (Acetylcysteine 20%) 4 ml INH RQ6 [facility] Last Admin: 05/16/17 13:25 Dose: 4 ml Albuterol/Ipratropium (Duoneb 3 Mg/0.5 Mg (3 Ml) Ud) 3 ml INH RQ6 [facility] Last Admin: 05/16/17 13:25 Dose: 3 ml Aspirin (Aspirin Chewable) 81 mg PO DAILY [facility] Last Admin: 05/16/17 10:40 Dose: 81 mg Bethanechol Chloride (Urecholine) 50 mg PEG TID [facility] Last Admin: 05/16/17 10:40 Dose: 50 mg Carvedilol (Coreg) 3.125 mg PEG BID [facility] Last Admin: 05/16/17 10:40 Dose: 3.125 mg Clopidogrel Bisulfate (Plavix) 75 mg PO DAILY [facility] Last Admin: 05/16/17 10:40 Dose: 75 mg Enoxaparin Sodium (Lovenox) 30 mg SC DAILY [facility] Last Admin: 05/16/17 10:40 Dose: 30 mg Famotidine (Pepcid) 20 mg PEG BID [facility] Last Admin: 05/16/17 10:40 Dose: 20 mg Finasteride (Proscar) 5 mg PO DAILY [facility] Last Admin: 05/16/17 10:39 Dose: 5 mg Guaifenesin/Codeine Phosphate (Guaifenesin/Codeine) 10 ml PO DAILY [facility] Last Admin: 05/16/17 10:39 Dose: 10 ml Levetiracetam (Keppra) 500 mg PO BID [facility] Last Admin: 05/16/17 10:40 Dose: 500 mg Saccharomyces Boulardii (Florastor) 250 mg PO DAILY [facility] Last Admin: 05/16/17 10:40 Dose: 250 mg Scopolamine (Transderm-Scop) 1 patch TD Q3D [facility] Last Admin: 05/14/17 11:06 Dose: 1 patch Tamsulosin HCl (Flomax) 0.4 mg PO DAILY [facility] Last Admin: 05/16/17 10:40 Dose: 0.4 mg - Labs Labs: 05/11/17 06:04 05/11/17 06:04 PT 10.6 SECONDS (9.7-12.2) 11/24/15 14:10 INR 1.0 11/24/15 14:10 APTT 25 SECONDS (21-34) 11/24/15 14:10 Attending/Attestation - Attestation I have personally seen and examined this patient.: Yes I have fully participated in the care of the patient.: Yes I have reviewed all pertinent clinical information, including history, physical exam and plan: Yes Notes (Text): 05/16/17 13:40 Patient was seen and examined at bedside I agree with the history and physical and assessment/plan but the resident.
[2017-05-15] MEDS: Saccharomyces Boulardi 250 mg Cap PO SCH (10:23)
[2017-05-15] MEDS: Enoxaparin 30 mg Syringe SC SCH (10:24)
[2017-05-15] MEDS: guaiFENesin-Codeine 100-10mg/5ml Syrup (10ml) UD PO SCH (18:29)
[2017-05-16] MEDS: Acetylcysteine 20% Inhal Soln (4ml) INH SCH ×4 (01:34→19:45)
[2017-05-16] MEDS: Albuterol-Ipratrop 3 mg / 0.5 (3 ml) UD INH SCH ×4 (01:34→19:45)
--- NOTE | 2017-05-16 01:37 | CP.PCM.PN ---
<Alisia Pappas - Last Filed: 05/16/17 07:59> Subjective - Date & Time of Evaluation Date of Evaluation: 05/16/17 Time of Evaluation: 00:25 - Subjective Subjective: Medicine Progress Note- Dr. Ying Service Patient was seen and examined at bedside in no acute distress. Patient is unable to answer questions or review of systems due to an anoxic brain injury (). Objective - Vital Signs/Intake and Output Vital Signs (last 24 hours): Temp Pulse Resp BP Pulse Ox 97.3 F L 76 20 123/82 97 05/15/17 16:00 05/15/17 16:00 05/15/17 16:00 05/15/17 16:00 05/15/17 16:00 Intake and Output: 05/15/17 05/16/17 18:59 06:59 Intake Total 680 680 Output Total 525 500 Balance 155 180 - Medications Medications: Current Medications Acetaminophen (Tylenol 650mg/20.3ml Solution Ud) 650 mg PEG Q6 PRN PRN Reason: Fever >100.4 F Last Admin: 04/07/17 02:45 Dose: 650 mg Acetylcysteine (Acetylcysteine 20%) 4 ml INH RQ6 [facility] Last Admin: 05/16/17 01:34 Dose: 4 ml Albuterol/Ipratropium (Duoneb 3 Mg/0.5 Mg (3 Ml) Ud) 3 ml INH RQ6 [facility] Last Admin: 05/16/17 01:34 Dose: 3 ml Aspirin (Aspirin Chewable) 81 mg PO DAILY [facility] Last Admin: 05/15/17 10:22 Dose: 81 mg Bethanechol Chloride (Urecholine) 50 mg PEG TID [facility] Last Admin: 05/15/17 17:03 Dose: 50 mg Carvedilol (Coreg) 3.125 mg PEG BID [facility] Last Admin: 05/15/17 17:03 Dose: 3.125 mg Clopidogrel Bisulfate (Plavix) 75 mg PO DAILY [facility] Last Admin: 05/15/17 10:23 Dose: 75 mg Enoxaparin Sodium (Lovenox) 30 mg SC DAILY [facility] Last Admin: 05/15/17 10:24 Dose: 30 mg Famotidine (Pepcid) 20 mg PEG BID [facility] Last Admin: 05/15/17 17:03 Dose: 20 mg Finasteride (Proscar) 5 mg PO DAILY [facility] Last Admin: 05/15/17 10:23 Dose: 5 mg Guaifenesin/Codeine Phosphate (Guaifenesin/Codeine) 10 ml PO DAILY [facility] Last Admin: 05/15/17 18:29 Dose: 10 ml Levetiracetam (Keppra) 500 mg PO BID [facility] Last Admin: 05/15/17 17:03 Dose: 500 mg Saccharomyces Boulardii (Florastor) 250 mg PO DAILY [facility] Last Admin: 05/15/17 10:23 Dose: 250 mg Scopolamine (Transderm-Scop) 1 patch TD Q3D [facility] Last Admin: 05/14/17 11:06 Dose: 1 patch Tamsulosin HCl (Flomax) 0.4 mg PO DAILY [facility] Last Admin: 05/15/17 10:23 Dose: 0.4 mg - Labs Labs: 05/11/17 06:04 05/11/17 06:04 PT 10.6 SECONDS (9.7-12.2) 11/24/15 14:10 INR 1.0 11/24/15 14:10 APTT 25 SECONDS (21-34) 11/24/15 14:10 - Constitutional Appears: No Acute Distress - Head Exam Head Exam: NORMAL INSPECTION, NORMOCEPHALIC - ENT Exam ENT Exam: Mucous Membranes Moist - Neck Exam Neck Exam: absent: Full ROM Additional comments: Trach in place - Respiratory Exam Respiratory Exam: Decreased Breath Sounds, NORMAL BREATHING PATTERN - Cardiovascular Exam Cardiovascular Exam: REGULAR RHYTHM, +S1, +S2 - GI/Abdominal Exam GI & Abdominal Exam: Soft, Normal Bowel Sounds - Neurological Exam Neurological Exam: Altered. absent: Alert, Awake, Oriented x3 Assessment and Plan - Assessment and Plan (Free Text) Plan: 1.) Anoxic Encephalopathy s/p cardiac arrest in 05/2015 no acute changes Pt has non spontaneous movements. continue current management. Continue tube feeds- at goal of 60 Florastor 250mg PO TID via PEG 2.) UTI resolved patient afebrile, WBC 10.5 Completed course of Amikacin and Meropenem. amikacin discontinued on 04/18 ( total 10), Meropenem (04/13) total 7 days Urine culture (04/06/17): + Proteus Mirabilis [place] catheter in place Tylenol 650mg po q6 PEG PRN Will follow up with Thursday WEEKLY labs 3.) Urinary Retention Take note condom cath not always securely in place so Is and Os are approximate as patient does wet bed Flomax 0.4mg PEG daily Proscar 5mg PEG daily continue Bethanecol 50mg PEG TID- started after persistent retention and found to be effective. monitor I's and O's Check bladder scan for residual urine three times weekly 4.) Watery stools Recent completion of Merrem, Amikacin C. diff negative (04/26/17) Stool leukocytes negative (04/26/17) stool culture (04/26/17) negative 5.) Respiratory Failure Trach in place, continue daily monitoring for secretions. No change in management at this time. Continue with aggressive suctioning multiple times a day per respiratory therapist. Monitor for signs of respiratory distress Thick secretions Duoneb 3ml INH Q6 and Mucomyst 4ml INH Q6H Robitussin 100mg PEG Q12H Scopolamine 1 patch TD Q3D JOO 6.) Sacral Ulcer Healed Cont with offloading/cushioning/turning Continue frequent turning, protective ointment and skin checks. Status: Acute 7.) History of coronary artery disease s/p cardiac stents on 06/13/15 Cont ASA 81mg via PEG daily Cont Coreg 3.125mg PEG BID Cont Plavix 75mg PO daily 8.) Seizures Cont Keppra 500mg PEG BID for seizure prophylaxis Monitor for activity 9.) Lower extremity edema Improved Continue to monitor 10.) Prophylaxis Pepcid 20 mg PEG BID Lovenox 30mg SC daily SCDs and offloading boots continue to turn and reposition q2hrs Feeds increased to 60cc/hr. Per math and physics instructor (05/02/17): tube feed goal: Isosource 1.5 @ 60cc/h Will continue tube feeds @ 60 unless patient cannot tolerate Continue to monitor medication administrations and clinical presentation weekly labs. <Donnell Ying - Last Filed: 05/16/17 15:06> Objective - Vital Signs/Intake and Output Vital Signs (last 24 hours): Temp Pulse Resp BP Pulse Ox 98.6 F 90 20 128/72 98 05/16/17 08:00 05/16/17 08:00 05/16/17 08:00 05/16/17 08:00 05/16/17 08:00 Intake and Output: 05/16/17 05/16/17 06:59 18:59 Intake Total 1360 Output Total 1000 Balance 360 - Medications Medications: Current Medications Acetaminophen (Tylenol 650mg/20.3ml Solution Ud) 650 mg PEG Q6 PRN PRN Reason: Fever >100.4 F Last Admin: 04/07/17 02:45 Dose: 650 mg Acetylcysteine (Acetylcysteine 20%) 4 ml INH RQ6 [facility] Last Admin: 05/16/17 13:25 Dose: 4 ml Albuterol/Ipratropium (Duoneb 3 Mg/0.5 Mg (3 Ml) Ud) 3 ml INH RQ6 [facility] Last Admin: 05/16/17 13:25 Dose: 3 ml Aspirin (Aspirin Chewable) 81 mg PO DAILY [facility] Last Admin: 05/16/17 10:40 Dose: 81 mg Bethanechol Chloride (Urecholine) 50 mg PEG TID [facility] Last Admin: 05/16/17 13:48 Dose: 50 mg Carvedilol (Coreg) 3.125 mg PEG BID [facility] Last Admin: 05/16/17 10:40 Dose: 3.125 mg Clopidogrel Bisulfate (Plavix) 75 mg PO DAILY [facility] Last Admin: 05/16/17 10:40 Dose: 75 mg Enoxaparin Sodium (Lovenox) 30 mg SC DAILY [facility] Last Admin: 05/16/17 10:40 Dose: 30 mg Famotidine (Pepcid) 20 mg PEG BID [facility] Last Admin: 05/16/17 10:40 Dose: 20 mg Finasteride (Proscar) 5 mg PO DAILY [facility] Last Admin: 05/16/17 10:39 Dose: 5 mg Guaifenesin/Codeine Phosphate (Guaifenesin/Codeine) 10 ml PO DAILY [facility] Last Admin: 05/16/17 10:39 Dose: 10 ml Levetiracetam (Keppra) 500 mg PO BID [facility] Last Admin: 05/16/17 10:40 Dose: 500 mg Saccharomyces Boulardii (Florastor) 250 mg PO DAILY [facility] Last Admin: 05/16/17 10:40 Dose: 250 mg Scopolamine (Transderm-Scop) 1 patch TD Q3D [facility] Last Admin: 05/14/17 11:06 Dose: 1 patch Tamsulosin HCl (Flomax) 0.4 mg PO DAILY [facility] Last Admin: 05/16/17 10:40 Dose: 0.4 mg - Labs Labs: 05/11/17 06:04 05/11/17 06:04 PT 10.6 SECONDS (9.7-12.2) 11/24/15 14:10 INR 1.0 11/24/15 14:10 APTT 25 SECONDS (21-34) 11/24/15 14:10 Attending/Attestation - Attestation I have personally seen and examined this patient.: Yes I have fully participated in the care of the patient.: Yes I have reviewed all pertinent clinical information, including history, physical exam and plan: Yes Notes (Text): 05/16/17 15:05 Patient was seen and examined at bedside We will continue current medical management Turn and position patient every 2 hours Continue local care of for tracheostomy and PEG site I discussed the plan of care with the resident and agree with the history and physical and assessment/plan by the resident.
[2017-05-16] MEDS: guaiFENesin-Codeine 100-10mg/5ml Syrup (10ml) UD PO SCH (10:39)
[2017-05-16] MEDS: Saccharomyces Boulardi 250 mg Cap PO SCH (10:40)
[2017-05-16] MEDS: Enoxaparin 30 mg Syringe SC SCH (10:40)
[2017-05-17] MEDS: Acetylcysteine 20% Inhal Soln (4ml) INH SCH ×5 (01:10→20:49)
[2017-05-17] MEDS: Albuterol-Ipratrop 3 mg / 0.5 (3 ml) UD INH SCH ×4 (01:11→20:48)
--- NOTE | 2017-05-17 05:00 | CP.PCM.PN ---
Subjective - Date & Time of Evaluation Date of Evaluation: 05/17/17 Time of Evaluation: 00:40 - Subjective Subjective: Medicine Progress Note- Dr. Ying Service Patient was seen and examined at bedside in no acute distress. Patient is unable to answer questions or review of systems due to an anoxic brain injury (05/2015). Objective - Vital Signs/Intake and Output Vital Signs (last 24 hours): Temp Pulse Resp BP Pulse Ox 98.3 F 81 20 107/72 97 05/17/17 00:00 05/17/17 00:00 05/17/17 00:00 05/17/17 00:00 05/17/17 00:00 Intake and Output: 05/16/17 05/17/17 18:59 06:59 Intake Total 680 680 Output Total 400 400 Balance 280 280 - Medications Medications: Current Medications Acetaminophen (Tylenol 650mg/20.3ml Solution Ud) 650 mg PEG Q6 PRN PRN Reason: Fever >100.4 F Last Admin: 04/07/17 02:45 Dose: 650 mg Acetylcysteine (Acetylcysteine 20%) 4 ml INH RQ6 [facility] Last Admin: 05/17/17 01:10 Dose: 4 ml Albuterol/Ipratropium (Duoneb 3 Mg/0.5 Mg (3 Ml) Ud) 3 ml INH RQ6 [facility] Last Admin: 05/17/17 01:11 Dose: 3 ml Aspirin (Aspirin Chewable) 81 mg PO DAILY [facility] Last Admin: 05/16/17 10:40 Dose: 81 mg Bethanechol Chloride (Urecholine) 50 mg PEG TID [facility] Last Admin: 05/16/17 17:37 Dose: 50 mg Carvedilol (Coreg) 3.125 mg PEG BID [facility] Last Admin: 05/16/17 17:37 Dose: Not Given Clopidogrel Bisulfate (Plavix) 75 mg PO DAILY [facility] Last Admin: 05/16/17 10:40 Dose: 75 mg Enoxaparin Sodium (Lovenox) 30 mg SC DAILY [facility] Last Admin: 05/16/17 10:40 Dose: 30 mg Famotidine (Pepcid) 20 mg PEG BID [facility] Last Admin: 05/16/17 17:37 Dose: 20 mg Finasteride (Proscar) 5 mg PO DAILY [facility] Last Admin: 05/16/17 10:39 Dose: 5 mg Guaifenesin/Codeine Phosphate (Guaifenesin/Codeine) 10 ml PO DAILY [facility] Last Admin: 05/16/17 10:39 Dose: 10 ml Levetiracetam (Keppra) 500 mg PO BID [facility] Last Admin: 05/16/17 17:37 Dose: 500 mg Saccharomyces Boulardii (Florastor) 250 mg PO DAILY [facility] Last Admin: 05/16/17 10:40 Dose: 250 mg Scopolamine (Transderm-Scop) 1 patch TD Q3D [facility] Last Admin: 05/14/17 11:06 Dose: 1 patch Tamsulosin HCl (Flomax) 0.4 mg PO DAILY [facility] Last Admin: 05/16/17 10:40 Dose: 0.4 mg - Labs Labs: 05/11/17 06:04 05/11/17 06:04 PT 10.6 SECONDS (9.7-12.2) 11/24/15 14:10 INR 1.0 11/24/15 14:10 APTT 25 SECONDS (21-34) 11/24/15 14:10 - Constitutional Appears: No Acute Distress - Head Exam Head Exam: NORMAL INSPECTION, NORMOCEPHALIC - ENT Exam ENT Exam: Mucous Membranes Moist - Neck Exam Additional comments: Trach in place - Respiratory Exam Respiratory Exam: Decreased Breath Sounds, NORMAL BREATHING PATTERN. absent: Respiratory Distress - Cardiovascular Exam Cardiovascular Exam: REGULAR RHYTHM, RRR, +S1, +S2. absent: JVD - GI/Abdominal Exam GI & Abdominal Exam: Hypoactive Bowel Sounds - Neurological Exam Neurological Exam: Altered. absent: Alert, Awake, Oriented x3 Assessment and Plan - Assessment and Plan (Free Text) Plan: 1.) Anoxic Encephalopathy s/p cardiac arrest in 05/2015 no acute changes Pt has non spontaneous movements. continue current management. Continue tube feeds- at goal of 60 Florastor 250mg PO TID via PEG 2.) UTI resolved patient afebrile, WBC 10.5 Completed course of Amikacin and Meropenem. amikacin discontinued on 04/18 ( total 10), Meropenem (04/13) total 7 days Urine culture (04/06/17): + Proteus Mirabilis [place] catheter in place Tylenol 650mg po q6 PEG PRN Will follow up with Thursday WEEKLY labs 3.) Urinary Retention Take note condom cath not always securely in place so Is and Os are approximate as patient does wet bed Flomax 0.4mg PEG daily Proscar 5mg PEG daily continue Bethanecol 50mg PEG TID- started after persistent retention and found to be effective. monitor I's and O's Check bladder scan for residual urine three times weekly 4.) Watery stools Recent completion of Merrem, Amikacin C. diff negative (04/26/17) Stool leukocytes negative (04/26/17) stool culture (04/26/17) negative 5.) Respiratory Failure Trach in place, continue daily monitoring for secretions. No change in management at this time. Continue with aggressive suctioning multiple times a day per respiratory therapist. Monitor for signs of respiratory distress Thick secretions Duoneb 3ml INH Q6 and Mucomyst 4ml INH Q6H Robitussin 100mg PEG Q12H Scopolamine 1 patch TD Q3D [facility] 6.) Sacral Ulcer Healed Cont with offloading/cushioning/turning Continue frequent turning, protective ointment and skin checks. 7.) History of coronary artery disease s/p cardiac stents on 06/13/15 Cont ASA 81mg via PEG daily Cont Coreg 3.125mg PEG BID Cont Plavix 75mg PO daily 8.) Seizures Cont Keppra 500mg PEG BID for seizure prophylaxis Monitor for activity 9.) Lower extremity edema Improved Continue to monitor 10.) Prophylaxis Pepcid 20 mg PEG BID Lovenox 30mg SC daily SCDs and offloading boots continue to turn and reposition q2hrs Feeds increased to 60cc/hr. Per waste water or water plant operator (05/02/17): tube feed goal: Isosource 1.5 @ 60cc/h Will continue tube feeds @ 60 unless patient cannot tolerate Continue to monitor medication administrations and clinical presentation weekly labs.
[2017-05-17] MEDS: guaiFENesin-Codeine 100-10mg/5ml Syrup (10ml) UD PO SCH (09:55)
[2017-05-17] MEDS: Saccharomyces Boulardi 250 mg Cap PO SCH (09:56)
[2017-05-17] MEDS: Enoxaparin 30 mg Syringe SC SCH (09:56)
[2017-05-18] MEDS: Acetylcysteine 20% Inhal Soln (4ml) INH SCH ×4 (01:08→21:13)
[2017-05-18] MEDS: Albuterol-Ipratrop 3 mg / 0.5 (3 ml) UD INH SCH ×3 (01:08→15:00)
[2017-05-18 07:33] LABS: BASO # 0.1 K/uL (0.0-0.2); BASO % 0.8 % (0.0-2.0); EOS # 0.2 K/uL (0.0-0.7); EOS % 2.1 % (0.0-4.0); HEMOGLOBIN 10.7 g/dL (12.0-18.0); LYMPH # 2.3 K/uL (1.0-4.3); LYMPH % 23.6 % (20.0-40.0); MEAN CELL VOLUME 87.9 fL (80.0-94.0); MEAN CORPUSCULAR HEMOGLOBIN 28.1 pg (27.0-31.0); MEAN CORPUSCULAR HGB CONC 31.9 g/dL (33.0-37.0); MEAN PLATELET VOLUME 8.8 fL (7.2-11.7); MONO # 0.9 K/uL (0.0-0.8); MONO % 9.5 % (0.0-10.0); NEUT # 6.3 K/uL (1.8-7.0); NRBC % 0.1 % (0.0-2.0); RBC 3.81 Mil/uL (4.40-5.90); RED CELL DISTRIBUTION WIDTH 15.9 % (11.5-14.5); WHITE BLOOD COUNT 9.9 K/uL (4.8-10.8)
[2017-05-18 07:52] LABS: ALBUMIN 3.1 g/dL (3.5-5.0)
[2017-05-18 07:55] LABS: ALB/GLOB RATIO 0.6 (1.0-2.1); AST/SGOT 33 U/L (17-59); BLOOD UREA NITROGEN 18 mg/dL (9-20); GFR NON-AFRICAN AMERICAN > 60
[2017-05-18 07:56] LABS: ALT/SGPT 45 U/L (21-72); CALCIUM 8.3 mg/dl (8.6-10.4)
[2017-05-18] MEDS: guaiFENesin-Codeine 100-10mg/5ml Syrup (10ml) UD PO SCH (10:25)
[2017-05-18] MEDS: Enoxaparin 30 mg Syringe SC SCH (10:26)
[2017-05-18] MEDS: Saccharomyces Boulardi 250 mg Cap PO SCH (10:26)
--- NOTE | 2017-05-18 14:36 | CP.PCM.PN ---
<Vesna Turpin - Last Filed: 05/18/17 14:33> Subjective - Date & Time of Evaluation Date of Evaluation: 05/18/17 Time of Evaluation: 14:33 - Subjective Subjective: Medicine Progress Note- Dr. Chavis Service Patient was seen and examined at bedside in no acute distress. Patient is unable to answer questions or review of systems due to an anoxic brain injury (). Objective - Vital Signs/Intake and Output Vital Signs (last 24 hours): Temp Pulse Resp BP Pulse Ox 97.8 F 80 20 126/86 96 05/18/17 07:50 05/18/17 07:50 05/18/17 07:50 05/18/17 07:50 05/18/17 07:50 Intake and Output: 05/18/17 05/18/17 06:59 18:59 Intake Total 1360 680 Output Total 1000 300 Balance 360 380 - Medications Medications: Current Medications Acetaminophen (Tylenol 650mg/20.3ml Solution Ud) 650 mg PEG Q6 PRN PRN Reason: Fever >100.4 F Last Admin: 04/07/17 02:45 Dose: 650 mg Acetylcysteine (Acetylcysteine 20%) 4 ml INH RQ6 [facility] Last Admin: 05/18/17 08:29 Dose: 4 ml Albuterol/Ipratropium (Duoneb 3 Mg/0.5 Mg (3 Ml) Ud) 3 ml INH RQ8 [facility] Last Admin: 05/18/17 08:29 Dose: 3 ml Aspirin (Aspirin Chewable) 81 mg PO DAILY [facility] Last Admin: 05/18/17 10:26 Dose: 81 mg Bethanechol Chloride (Urecholine) 50 mg PEG TID [facility] Last Admin: 05/18/17 10:25 Dose: 50 mg Carvedilol (Coreg) 3.125 mg PEG BID [facility] Last Admin: 05/18/17 10:26 Dose: 3.125 mg Clopidogrel Bisulfate (Plavix) 75 mg PO DAILY [facility] Last Admin: 05/18/17 10:26 Dose: 75 mg Enoxaparin Sodium (Lovenox) 30 mg SC DAILY [facility] Last Admin: 05/18/17 10:26 Dose: 30 mg Famotidine (Pepcid) 20 mg PEG BID [facility] Last Admin: 05/18/17 10:25 Dose: 20 mg Finasteride (Proscar) 5 mg PO DAILY [facility] Last Admin: 05/18/17 10:25 Dose: 5 mg Guaifenesin/Codeine Phosphate (Guaifenesin/Codeine) 10 ml PO DAILY [facility] Last Admin: 05/18/17 10:25 Dose: 10 ml Levetiracetam (Keppra) 500 mg PO BID [facility] Last Admin: 05/18/17 10:25 Dose: 500 mg Saccharomyces Boulardii (Florastor) 250 mg PO DAILY [facility] Last Admin: 05/18/17 10:26 Dose: 250 mg Scopolamine (Transderm-Scop) 1 patch TD Q3D [facility] Last Admin: 05/17/17 09:10 Dose: 1 patch Tamsulosin HCl (Flomax) 0.4 mg PO DAILY [facility] Last Admin: 05/18/17 10:26 Dose: 0.4 mg - Labs Labs: 05/18/17 07:14 05/18/17 07:14 PT 10.6 SECONDS (9.7-12.2) 11/24/15 14:10 INR 1.0 11/24/15 14:10 APTT 25 SECONDS (21-34) 11/24/15 14:10 - Constitutional Appears: No Acute Distress - Head Exam Head Exam: NORMAL INSPECTION, NORMOCEPHALIC - Eye Exam Eye Exam: absent: EOMI, Normal appearance - ENT Exam ENT Exam: Mucous Membranes Moist - Neck Exam Neck Exam: absent: Full ROM, Normal Inspection Additional comments: trach in place - Respiratory Exam Respiratory Exam: Decreased Breath Sounds, Wheezes. absent: Accessory Muscle Use - Cardiovascular Exam Cardiovascular Exam: REGULAR RHYTHM, +S1, +S2 - GI/Abdominal Exam GI & Abdominal Exam: Soft, Normal Bowel Sounds - Extremities Exam Extremities Exam: absent: Full ROM, Pedal Edema - Neurological Exam Neurological Exam: Altered. absent: Alert, Awake, Oriented x3 - Psychiatric Exam Psychiatric exam: Flat Affect. absent: Normal Affect, Normal Mood - Skin Skin Exam: Dry, Intact, Normal Color, Warm - Additional Findings Additional findings: Sacral base ucler- healed Assessment and Plan (1) Anoxic encephalopathy Assessment & Plan: s/p cardiac arrest in 05/2015 no acute changes Pt has non spontaneous movements. continue current management. Continue tube feeds- at goal of 60 Florastor 250mg PO TID via PEG Status: Chronic (2) UTI (urinary tract infection) Assessment & Plan: resolved patient afebrile, WBC 10.5 Completed course of Amikacin and Meropenem. amikacin discontinued on 04/18 ( total 10), Meropenem (04/13) total 7 days Urine culture (04/06/17): + Proteus Mirabilis [place] catheter in place Tylenol 650mg po q6 PEG PRN Will follow up with Thursday WEEKLY labs Status: Resolved (3) Urinary retention Assessment & Plan: Take note condom cath not always securely in place so Is and Os are approximate as patient does wet bed Flomax 0.4mg PEG daily Proscar 5mg PEG daily continue Bethanecol 50mg PEG TID- started after persistent retention and found to be effective. monitor I's and O's Check bladder scan for residual urine three times weekly Status: Acute (4) Watery stools Assessment & Plan: Recent completion of Merrem, Amikacin C. diff negative (04/26/17) Stool leukocytes negative (04/26/17) stool culture (04/26/17) negative Status: Resolved (5) Respiratory failure Assessment & Plan: Trach in place, continue daily monitoring for secretions. No change in management at this time. Continue with aggressive suctioning multiple times a day per respiratory therapist. Monitor for signs of respiratory distress Thick secretions Duoneb 3ml INH Q6 and Mucomyst 4ml INH Q6H Robitussin 100mg PEG Q12H Scopolamine 1 patch TD Q3D JOO Status: Chronic (6) Sacral ulcer Assessment & Plan: Healed Cont with offloading/cushioning/turning Continue frequent turning, protective ointment and skin checks. Status: Acute (7) History of coronary artery disease Assessment & Plan: s/p cardiac stents on 06/13/15 Cont ASA 81mg via PEG daily Cont Coreg 3.125mg PEG BID Cont Plavix 75mg PO daily Status: Acute (8) Seizures Assessment & Plan: Cont Keppra 500mg PEG BID for seizure prophylaxis Monitor for activity Status: Acute (9) Lower extremity edema Assessment & Plan: Improved Continue to monitor Status: Acute (10) Prophylactic measure Assessment & Plan: Pepcid 20 mg PEG BID Lovenox 30mg SC daily SCDs and offloading boots continue to turn and reposition q2hrs Feeds increased to 60cc/hr. Per tank carpenter (05/02/17): tube feed goal: Isosource 1.5 @ 60cc/h Will continue tube feeds @ 60 unless patient cannot tolerate Continue to monitor medication administrations and clinical presentation weekly labs. Status: Acute <Amandeep Chavis H - Last Filed: 05/18/17 16:36> Objective - Vital Signs/Intake and Output Vital Signs (last 24 hours): Temp Pulse Resp BP Pulse Ox 98.3 F 81 20 114/76 100 05/18/17 15:00 05/18/17 15:00 05/18/17 15:00 05/18/17 15:00 05/18/17 15:00 Intake and Output: 05/18/17 05/18/17 06:59 18:59 Intake Total 1360 680 Output Total 1000 300 Balance 360 380 - Medications Medications: Current Medications Acetaminophen (Tylenol 650mg/20.3ml Solution Ud) 650 mg PEG Q6 PRN PRN Reason: Fever >100.4 F Last Admin: 04/07/17 02:45 Dose: 650 mg Acetylcysteine (Acetylcysteine 20%) 4 ml INH RQ6 [facility] Last Admin: 05/18/17 08:29 Dose: 4 ml Albuterol/Ipratropium (Duoneb 3 Mg/0.5 Mg (3 Ml) Ud) 3 ml INH RQ8 [facility] Last Admin: 05/18/17 08:29 Dose: 3 ml Aspirin (Aspirin Chewable) 81 mg PO DAILY [facility] Last Admin: 05/18/17 10:26 Dose: 81 mg Bethanechol Chloride (Urecholine) 50 mg PEG TID [facility] Last Admin: 05/18/17 10:25 Dose: 50 mg Carvedilol (Coreg) 3.125 mg PEG BID [facility] Last Admin: 05/18/17 10:26 Dose: 3.125 mg Clopidogrel Bisulfate (Plavix) 75 mg PO DAILY [facility] Last Admin: 05/18/17 10:26 Dose: 75 mg Enoxaparin Sodium (Lovenox) 30 mg SC DAILY [facility] Last Admin: 05/18/17 10:26 Dose: 30 mg Famotidine (Pepcid) 20 mg PEG BID [facility] Last Admin: 05/18/17 10:25 Dose: 20 mg Finasteride (Proscar) 5 mg PO DAILY [facility] Last Admin: 05/18/17 10:25 Dose: 5 mg Guaifenesin/Codeine Phosphate (Guaifenesin/Codeine) 10 ml PO DAILY [facility] Last Admin: 05/18/17 10:25 Dose: 10 ml Levetiracetam (Keppra) 500 mg PO BID [facility] Last Admin: 05/18/17 10:25 Dose: 500 mg Saccharomyces Boulardii (Florastor) 250 mg PO DAILY [facility] Last Admin: 05/18/17 10:26 Dose: 250 mg Scopolamine (Transderm-Scop) 1 patch TD Q3D [facility] Last Admin: 05/17/17 09:10 Dose: 1 patch Tamsulosin HCl (Flomax) 0.4 mg PO DAILY [facility] Last Admin: 05/18/17 10:26 Dose: 0.4 mg - Labs Labs: 05/18/17 07:14 05/18/17 07:14 PT 10.6 SECONDS (9.7-12.2) 11/24/15 14:10 INR 1.0 11/24/15 14:10 APTT 25 SECONDS (21-34) 11/24/15 14:10 Assessment and Plan (1) Prophylactic measure Status: Acute (2) Anoxic encephalopathy Status: Chronic (3) STEMI (ST elevation myocardial infarction) Status: Acute (4) Cardiac arrest Status: Acute (5) Seizures Status: Acute (6) Respiratory failure Status: Chronic Attending/Attestation - Attestation I have personally seen and examined this patient.: Yes I have fully participated in the care of the patient.: Yes I have reviewed all pertinent clinical information, including history, physical exam and plan: Yes
[2017-05-19] MEDS: Albuterol-Ipratrop 3 mg / 0.5 (3 ml) UD INH SCH ×3 (01:05→20:27)
[2017-05-19] MEDS: Acetylcysteine 20% Inhal Soln (4ml) INH SCH ×3 (01:05→20:27)
[2017-05-19] MEDS: Enoxaparin 30 mg Syringe SC SCH (10:36)
[2017-05-19] MEDS: Saccharomyces Boulardi 250 mg Cap PO SCH (10:36)
[2017-05-19] MEDS: guaiFENesin-Codeine 100-10mg/5ml Syrup (10ml) UD PO SCH (10:37)
--- NOTE | 2017-05-19 14:44 | CP.PCM.PN ---
Subjective - Date & Time of Evaluation Date of Evaluation: 05/19/17 Time of Evaluation: 14:41 - Subjective Subjective: Medicine Progress Note- Dr. Chavis Service Patient was seen and examined at bedside in no acute distress. Patient is unable to answer questions or review of systems due to an anoxic brain injury (). Objective - Vital Signs/Intake and Output Vital Signs (last 24 hours): Temp Pulse Resp BP Pulse Ox 98.3 F 80 20 132/76 98 05/19/17 07:37 05/19/17 07:37 05/19/17 07:37 05/19/17 07:37 05/19/17 07:37 Intake and Output: 05/19/17 05/19/17 06:59 18:59 Intake Total 600 600 Output Total 350 350 Balance 250 250 - Medications Medications: Current Medications Acetaminophen (Tylenol 650mg/20.3ml Solution Ud) 650 mg PEG Q6 PRN PRN Reason: Fever >100.4 F Last Admin: 04/07/17 02:45 Dose: 650 mg Acetylcysteine (Acetylcysteine 20%) 4 ml INH RQ8 [facility] Albuterol/Ipratropium (Duoneb 3 Mg/0.5 Mg (3 Ml) Ud) 3 ml INH RQ8 [facility] Last Admin: 05/19/17 08:58 Dose: 3 ml Aspirin (Aspirin Chewable) 81 mg PO DAILY [facility] Last Admin: 05/19/17 10:35 Dose: 81 mg Bethanechol Chloride (Urecholine) 50 mg PEG TID [facility] Last Admin: 05/19/17 13:58 Dose: 50 mg Carvedilol (Coreg) 3.125 mg PEG BID [facility] Last Admin: 05/19/17 10:35 Dose: 3.125 mg Clopidogrel Bisulfate (Plavix) 75 mg PO DAILY [facility] Last Admin: 05/19/17 10:36 Dose: 75 mg Enoxaparin Sodium (Lovenox) 30 mg SC DAILY [facility] Last Admin: 05/19/17 10:36 Dose: 30 mg Famotidine (Pepcid) 20 mg PEG BID [facility] Last Admin: 05/19/17 10:36 Dose: 20 mg Finasteride (Proscar) 5 mg PO DAILY [facility] Last Admin: 05/19/17 11:46 Dose: 5 mg Guaifenesin/Codeine Phosphate (Guaifenesin/Codeine) 10 ml PO DAILY [facility] Last Admin: 05/19/17 10:37 Dose: 10 ml Levetiracetam (Keppra) 500 mg PO BID [facility] Last Admin: 05/19/17 10:36 Dose: 500 mg Saccharomyces Boulardii (Florastor) 250 mg PO DAILY [facility] Last Admin: 05/19/17 10:36 Dose: 250 mg Scopolamine (Transderm-Scop) 1 patch TD Q3D [facility] Last Admin: 05/17/17 09:10 Dose: 1 patch Tamsulosin HCl (Flomax) 0.4 mg PO DAILY [facility] Last Admin: 05/19/17 10:35 Dose: 0.4 mg - Labs Labs: 05/18/17 07:14 05/18/17 07:14 PT 10.6 SECONDS (9.7-12.2) 11/24/15 14:10 INR 1.0 11/24/15 14:10 APTT 25 SECONDS (21-34) 11/24/15 14:10 - Constitutional Appears: No Acute Distress - Head Exam Head Exam: NORMAL INSPECTION, NORMOCEPHALIC - Eye Exam Eye Exam: absent: EOMI, Normal appearance - ENT Exam ENT Exam: Mucous Membranes Moist - Neck Exam Neck Exam: absent: Full ROM, Normal Inspection Additional comments: trach in place - Respiratory Exam Respiratory Exam: Decreased Breath Sounds, Wheezes, NORMAL BREATHING PATTERN - Cardiovascular Exam Cardiovascular Exam: REGULAR RHYTHM, +S1, +S2 - GI/Abdominal Exam GI & Abdominal Exam: Soft, Normal Bowel Sounds - Extremities Exam Extremities Exam: absent: Normal Inspection - Neurological Exam Neurological Exam: Altered. absent: Alert, Awake, Oriented x3 - Psychiatric Exam Psychiatric exam: absent: Normal Affect, Normal Mood - Skin Skin Exam: Dry, Intact, Normal Color, Warm Assessment and Plan (1) Anoxic encephalopathy Assessment & Plan: s/p cardiac arrest in 05/2015 no acute changes Pt has non spontaneous movements. continue current management. Continue tube feeds- at goal of 60 Florastor 250mg PO TID via PEG Status: Chronic (2) UTI (urinary tract infection) Assessment & Plan: resolved patient afebrile, WBC 10.5 Completed course of Amikacin and Meropenem. amikacin discontinued on 04/18 ( total 10), Meropenem (04/13) total 7 days Urine culture (04/06/17): + Proteus Mirabilis [place] catheter in place Tylenol 650mg po q6 PEG PRN Will follow up with Thursday WEEKLY labs Status: Resolved (3) Urinary retention Assessment & Plan: Take note condom cath not always securely in place so Is and Os are approximate as patient does wet bed Flomax 0.4mg PEG daily Proscar 5mg PEG daily continue Bethanecol 50mg PEG TID- started after persistent retention and found to be effective. monitor I's and O's Check bladder scan for residual urine three times weekly Status: Acute (4) Watery stools Assessment & Plan: Recent completion of Merrem, Amikacin C. diff negative (04/26/17) Stool leukocytes negative (04/26/17) stool culture (04/26/17) negative Status: Resolved (5) Respiratory failure Assessment & Plan: Trach in place, continue daily monitoring for secretions. No change in management at this time. Continue with aggressive suctioning multiple times a day per respiratory therapist. Monitor for signs of respiratory distress Thick secretions Duoneb 3ml INH Q6 and Mucomyst 4ml INH Q6H Robitussin 100mg PEG Q12H Scopolamine 1 patch TD Q3D JOO Status: Chronic (6) Sacral ulcer Assessment & Plan: Healed Cont with offloading/cushioning/turning Continue frequent turning, protective ointment and skin checks. Status: Acute (7) History of coronary artery disease Assessment & Plan: s/p cardiac stents on 06/13/15 Cont ASA 81mg via PEG daily Cont Coreg 3.125mg PEG BID Cont Plavix 75mg PO daily Status: Acute (8) Seizures Assessment & Plan: Cont Keppra 500mg PEG BID for seizure prophylaxis Monitor for activity Status: Acute (9) Lower extremity edema Assessment & Plan: Improved Continue to monitor Status: Acute (10) Prophylactic measure Assessment & Plan: Pepcid 20 mg PEG BID Lovenox 30mg SC daily SCDs and offloading boots continue to turn and reposition q2hrs Feeds increased to 60cc/hr. Per director business development (05/02/17): tube feed goal: Isosource 1.5 @ 60cc/h Will continue tube feeds @ 60 unless patient cannot tolerate Continue to monitor medication administrations and clinical presentation weekly labs. Status: Acute
[2017-05-20] MEDS: Albuterol-Ipratrop 3 mg / 0.5 (3 ml) UD INH SCH ×4 (00:55→23:44)
[2017-05-20] MEDS: Acetylcysteine 20% Inhal Soln (4ml) INH SCH ×4 (00:55→23:44)
[2017-05-20] MEDS: Saccharomyces Boulardi 250 mg Cap PO SCH (10:46)
[2017-05-20] MEDS: Enoxaparin 30 mg Syringe SC SCH (10:46)
[2017-05-20] MEDS: guaiFENesin-Codeine 100-10mg/5ml Syrup (10ml) UD PO SCH (10:46)
--- NOTE | 2017-05-20 12:54 | CP.PCM.PN ---
<Vesna Turpin - Last Filed: 05/20/17 14:15> Subjective - Date & Time of Evaluation Date of Evaluation: 05/20/17 Time of Evaluation: 12:50 - Subjective Subjective: Medicine Progress Note- Dr. Chavis Service Patient was seen and examined at bedside in no acute distress. As per the nurse , the patient has not had a bowel movement in 5 days. Patient is unable to answer questions or review of systems due to an anoxic brain injury (05/2015). Objective - Vital Signs/Intake and Output Vital Signs (last 24 hours): Temp Pulse Resp BP Pulse Ox 98.9 F 79 20 144/81 100 05/20/17 07:57 05/20/17 07:57 05/20/17 07:57 05/20/17 07:57 05/20/17 07:57 Intake and Output: 05/20/17 05/20/17 06:59 18:59 Intake Total 600 600 Output Total 350 Balance 600 250 - Medications Medications: Current Medications Acetaminophen (Tylenol 650mg/20.3ml Solution Ud) 650 mg PEG Q6 PRN PRN Reason: Fever >100.4 F Last Admin: 04/07/17 02:45 Dose: 650 mg Acetylcysteine (Acetylcysteine 20%) 4 ml INH RQ8 [facility] Last Admin: 05/20/17 08:46 Dose: 4 ml Albuterol/Ipratropium (Duoneb 3 Mg/0.5 Mg (3 Ml) Ud) 3 ml INH RQ8 [facility] Last Admin: 05/20/17 08:46 Dose: 3 ml Aspirin (Aspirin Chewable) 81 mg PO DAILY [facility] Last Admin: 05/20/17 10:46 Dose: 81 mg Bethanechol Chloride (Urecholine) 50 mg PEG TID [facility] Last Admin: 05/20/17 10:46 Dose: 50 mg Carvedilol (Coreg) 3.125 mg PEG BID [facility] Last Admin: 05/20/17 10:46 Dose: 3.125 mg Clopidogrel Bisulfate (Plavix) 75 mg PO DAILY [facility] Last Admin: 05/20/17 10:47 Dose: 75 mg Enoxaparin Sodium (Lovenox) 30 mg SC DAILY [facility] Last Admin: 05/20/17 10:46 Dose: 30 mg Famotidine (Pepcid) 20 mg PEG BID [facility] Last Admin: 05/20/17 10:46 Dose: 20 mg Finasteride (Proscar) 5 mg PO DAILY [facility] Last Admin: 05/20/17 10:47 Dose: 5 mg Guaifenesin/Codeine Phosphate (Guaifenesin/Codeine) 10 ml PO DAILY [facility] Last Admin: 05/20/17 10:46 Dose: 10 ml Levetiracetam (Keppra) 500 mg PO BID [facility] Last Admin: 05/20/17 10:46 Dose: 500 mg Saccharomyces Boulardii (Florastor) 250 mg PO DAILY [facility] Last Admin: 05/20/17 10:46 Dose: 250 mg Scopolamine (Transderm-Scop) 1 patch TD Q3D [facility] Last Admin: 05/20/17 09:03 Dose: 1 patch Tamsulosin HCl (Flomax) 0.4 mg PO DAILY [facility] Last Admin: 05/20/17 10:47 Dose: 0.4 mg - Labs Labs: 05/18/17 07:14 05/18/17 07:14 PT 10.6 SECONDS (9.7-12.2) 11/24/15 14:10 INR 1.0 11/24/15 14:10 APTT 25 SECONDS (21-34) 11/24/15 14:10 - Constitutional Appears: No Acute Distress - Head Exam Head Exam: NORMAL INSPECTION, NORMOCEPHALIC - Eye Exam Eye Exam: absent: EOMI, Normal appearance - ENT Exam ENT Exam: Mucous Membranes Moist - Neck Exam Neck Exam: absent: Full ROM, Normal Inspection Additional comments: trach in place - Respiratory Exam Respiratory Exam: Wheezes, NORMAL BREATHING PATTERN. absent: Decreased Breath Sounds, Clear to Ausculation Bilateral - Cardiovascular Exam Cardiovascular Exam: REGULAR RHYTHM, +S1, +S2 - GI/Abdominal Exam GI & Abdominal Exam: Soft, Normal Bowel Sounds - Extremities Exam Extremities Exam: Normal Inspection. absent: Full ROM, Pedal Edema - Neurological Exam Neurological Exam: Altered. absent: Alert, Awake, Oriented x3 - Psychiatric Exam Psychiatric exam: absent: Normal Affect, Normal Mood - Skin Skin Exam: Cyanosis, Dry, Intact, Normal Color, Warm Assessment and Plan (1) Anoxic encephalopathy Assessment & Plan: s/p cardiac arrest in 05/2015 no acute changes Pt has non spontaneous movements. continue current management. Continue tube feeds- at goal of 60 Florastor 250mg PO TID via PEG Status: Chronic (2) UTI (urinary tract infection) Assessment & Plan: resolved patient afebrile, WBC 10.5 Completed course of Amikacin and Meropenem. amikacin discontinued on 04/18 ( total 10), Meropenem (04/13) total 7 days Urine culture (04/06/17): + Proteus Mirabilis [place] catheter in place Tylenol 650mg po q6 PEG PRN Will follow up with Thursday WEEKLY labs Status: Resolved (3) Urinary retention Assessment & Plan: Take note condom cath not always securely in place so Is and Os are approximate as patient does wet bed Flomax 0.4mg PEG daily Proscar 5mg PEG daily continue Bethanecol 50mg PEG TID- started after persistent retention and found to be effective. monitor I's and O's Check bladder scan for residual urine three times weekly Status: Acute (4) Watery stools Assessment & Plan: Recent completion of Merrem, Amikacin C. diff negative (04/26/17) Stool leukocytes negative (04/26/17) stool culture (04/26/17) negative Status: Resolved (5) Respiratory failure Assessment & Plan: Trach in place, continue daily monitoring for secretions. No change in management at this time. Continue with aggressive suctioning multiple times a day per respiratory therapist. Monitor for signs of respiratory distress Thick secretions Duoneb 3ml INH Q6 and Mucomyst 4ml INH Q6H Robitussin 100mg PEG Q12H Scopolamine 1 patch TD Q3D JOO Status: Chronic (6) Sacral ulcer Assessment & Plan: Healed Cont with offloading/cushioning/turning Continue frequent turning, protective ointment and skin checks. Status: Acute (7) History of coronary artery disease Assessment & Plan: s/p cardiac stents on 06/13/15 Cont ASA 81mg via PEG daily Cont Coreg 3.125mg PEG BID Cont Plavix 75mg PO daily Status: Acute (8) Seizures Assessment & Plan: Cont Keppra 500mg PEG BID for seizure prophylaxis Monitor for activity Status: Acute (9) Lower extremity edema Assessment & Plan: Improved Continue to monitor Status: Acute (10) Constipation Assessment & Plan: Per the nurse, patient has not had a bowel movement in 5 days. Lactulose 30gm PEG once on 05/20/17 Status: Acute (11) Prophylactic measure Assessment & Plan: Pepcid 20 mg PEG BID Lovenox 30mg SC daily SCDs and offloading boots continue to turn and reposition q2hrs Feeds increased to 60cc/hr. Per office automation clerk (05/02/17): tube feed goal: Isosource 1.5 @ 60cc/h Will continue tube feeds @ 60 unless patient cannot tolerate Continue to monitor medication administrations and clinical presentation weekly labs. Status: Acute <Amandeep Chavis H - Last Filed: 05/20/17 17:03> Objective - Vital Signs/Intake and Output Vital Signs (last 24 hours): Temp Pulse Resp BP Pulse Ox 97.6 F 86 20 103/59 L 98 05/20/17 16:00 05/20/17 16:00 05/20/17 16:00 05/20/17 16:00 05/20/17 16:00 Intake and Output: 05/20/17 05/20/17 06:59 18:59 Intake Total 600 1200 Output Total 750 Balance 600 450 - Medications Medications: Current Medications Acetaminophen (Tylenol 650mg/20.3ml Solution Ud) 650 mg PEG Q6 PRN PRN Reason: Fever >100.4 F Last Admin: 04/07/17 02:45 Dose: 650 mg Acetylcysteine (Acetylcysteine 20%) 4 ml INH RQ8 [facility] Last Admin: 05/20/17 16:42 Dose: 4 ml Albuterol/Ipratropium (Duoneb 3 Mg/0.5 Mg (3 Ml) Ud) 3 ml INH RQ8 [facility] Last Admin: 05/20/17 16:42 Dose: 3 ml Aspirin (Aspirin Chewable) 81 mg PO DAILY [facility] Last Admin: 05/20/17 10:46 Dose: 81 mg Bethanechol Chloride (Urecholine) 50 mg PEG TID [facility] Last Admin: 05/20/17 14:25 Dose: 50 mg Carvedilol (Coreg) 3.125 mg PEG BID [facility] Last Admin: 05/20/17 10:46 Dose: 3.125 mg Clopidogrel Bisulfate (Plavix) 75 mg PO DAILY [facility] Last Admin: 05/20/17 10:47 Dose: 75 mg Enoxaparin Sodium (Lovenox) 30 mg SC DAILY [facility] Last Admin: 05/20/17 10:46 Dose: 30 mg Famotidine (Pepcid) 20 mg PEG BID [facility] Last Admin: 05/20/17 10:46 Dose: 20 mg Finasteride (Proscar) 5 mg PO DAILY [facility] Last Admin: 05/20/17 10:47 Dose: 5 mg Guaifenesin/Codeine Phosphate (Guaifenesin/Codeine) 10 ml PO DAILY [facility] Last Admin: 05/20/17 10:46 Dose: 10 ml Levetiracetam (Keppra) 500 mg PO BID [facility] Last Admin: 05/20/17 10:46 Dose: 500 mg Saccharomyces Boulardii (Florastor) 250 mg PO DAILY [facility] Last Admin: 05/20/17 10:46 Dose: 250 mg Scopolamine (Transderm-Scop) 1 patch TD Q3D [facility] Last Admin: 05/20/17 09:03 Dose: 1 patch Tamsulosin HCl (Flomax) 0.4 mg PO DAILY [facility] Last Admin: 05/20/17 10:47 Dose: 0.4 mg - Labs Labs: 05/18/17 07:14 05/18/17 07:14 PT 10.6 SECONDS (9.7-12.2) 11/24/15 14:10 INR 1.0 11/24/15 14:10 APTT 25 SECONDS (21-34) 11/24/15 14:10 Assessment and Plan (1) Prophylactic measure Status: Acute (2) Anoxic encephalopathy Status: Chronic (3) STEMI (ST elevation myocardial infarction) Status: Acute (4) Cardiac arrest Status: Acute (5) Seizures Status: Acute (6) Respiratory failure Status: Chronic Attending/Attestation - Attestation I have personally seen and examined this patient.: Yes I have fully participated in the care of the patient.: Yes I have reviewed all pertinent clinical information, including history, physical exam and plan: Yes Notes (Text): Medical attending: Patient was seen and examined by me, agree with the above note by medical biller/coder. There is no change in current overall situation at this time Amandeep Chavis
--- NOTE | 2017-05-21 07:53 | CP.PCM.PN ---
<Vesna Turpin - Last Filed: 05/21/17 14:58> Subjective - Date & Time of Evaluation Date of Evaluation: 05/21/17 Time of Evaluation: 07:52 - Subjective Subjective: Medicine Progress Note- Dr. Chavis Service Patient was seen and examined at bedside in no acute distress. As per the nurse , the patient had a bowel movement yesterday. Patient is unable to answer questions or review of systems due to an anoxic brain injury (05/2015). Objective - Vital Signs/Intake and Output Vital Signs (last 24 hours): Temp Pulse Resp BP Pulse Ox 98 F 92 H 20 108/72 97 05/21/17 07:37 05/21/17 07:37 05/21/17 07:37 05/21/17 07:37 05/21/17 07:37 Intake and Output: 05/21/17 05/21/17 06:59 18:59 Intake Total 1380 Output Total 950 Balance 430 - Medications Medications: Current Medications Acetaminophen (Tylenol 650mg/20.3ml Solution Ud) 650 mg PEG Q6 PRN PRN Reason: Fever >100.4 F Last Admin: 04/07/17 02:45 Dose: 650 mg Acetylcysteine (Acetylcysteine 20%) 4 ml INH RQ8 [facility] Last Admin: 05/20/17 23:44 Dose: 4 ml Albuterol/Ipratropium (Duoneb 3 Mg/0.5 Mg (3 Ml) Ud) 3 ml INH RQ8 [facility] Last Admin: 05/20/17 23:44 Dose: 3 ml Aspirin (Aspirin Chewable) 81 mg PO DAILY [facility] Last Admin: 05/20/17 10:46 Dose: 81 mg Bethanechol Chloride (Urecholine) 50 mg PEG TID [facility] Last Admin: 05/20/17 17:40 Dose: 50 mg Carvedilol (Coreg) 3.125 mg PEG BID [facility] Last Admin: 05/20/17 17:40 Dose: 3.125 mg Clopidogrel Bisulfate (Plavix) 75 mg PO DAILY [facility] Last Admin: 05/20/17 10:47 Dose: 75 mg Enoxaparin Sodium (Lovenox) 30 mg SC DAILY [facility] Last Admin: 05/20/17 10:46 Dose: 30 mg Famotidine (Pepcid) 20 mg PEG BID [facility] Last Admin: 05/20/17 17:40 Dose: 20 mg Finasteride (Proscar) 5 mg PO DAILY [facility] Last Admin: 05/20/17 10:47 Dose: 5 mg Guaifenesin/Codeine Phosphate (Guaifenesin/Codeine) 10 ml PO DAILY [facility] Last Admin: 05/20/17 10:46 Dose: 10 ml Levetiracetam (Keppra) 500 mg PO BID [facility] Last Admin: 05/20/17 17:40 Dose: 500 mg Saccharomyces Boulardii (Florastor) 250 mg PO DAILY [facility] Last Admin: 05/20/17 10:46 Dose: 250 mg Scopolamine (Transderm-Scop) 1 patch TD Q3D [facility] Last Admin: 05/20/17 09:03 Dose: 1 patch Tamsulosin HCl (Flomax) 0.4 mg PO DAILY [facility] Last Admin: 05/20/17 10:47 Dose: 0.4 mg - Labs Labs: 05/18/17 07:14 05/18/17 07:14 PT 10.6 SECONDS (9.7-12.2) 11/24/15 14:10 INR 1.0 11/24/15 14:10 APTT 25 SECONDS (21-34) 11/24/15 14:10 - Constitutional Appears: No Acute Distress - Head Exam Head Exam: NORMAL INSPECTION, NORMOCEPHALIC - Eye Exam Eye Exam: absent: EOMI, Normal appearance - ENT Exam ENT Exam: Mucous Membranes Moist - Respiratory Exam Respiratory Exam: Decreased Breath Sounds, NORMAL BREATHING PATTERN. absent: Clear to Ausculation Bilateral, Wheezes - Cardiovascular Exam Cardiovascular Exam: +S1, +S2 - GI/Abdominal Exam GI & Abdominal Exam: Soft, Normal Bowel Sounds - Extremities Exam Extremities Exam: Normal Inspection. absent: Full ROM - Neurological Exam Neurological Exam: Altered. absent: Alert, Awake, Oriented x3 - Psychiatric Exam Psychiatric exam: Flat Affect. absent: Normal Affect, Normal Mood - Skin Skin Exam: Dry, Intact, Normal Color, Warm Assessment and Plan (1) Anoxic encephalopathy Assessment & Plan: s/p cardiac arrest in 05/2015 no acute changes Pt has non spontaneous movements. continue current management. Continue tube feeds- at goal of 60 Florastor 250mg PO TID via PEG Status: Chronic (2) UTI (urinary tract infection) Assessment & Plan: resolved patient afebrile, WBC 10.5 Completed course of Amikacin and Meropenem. amikacin discontinued on 04/18 ( total 10), Meropenem (04/13) total 7 days Urine culture (04/06/17): + Proteus Mirabilis [place] catheter in place Tylenol 650mg po q6 PEG PRN Will follow up with Thursday WEEKLY labs Status: Resolved (3) Urinary retention Assessment & Plan: Take note condom cath not always securely in place so Is and Os are approximate as patient does wet bed Flomax 0.4mg PEG daily Proscar 5mg PEG daily continue Bethanecol 50mg PEG TID- started after persistent retention and found to be effective. monitor I's and O's Check bladder scan for residual urine three times weekly Status: Acute (4) Watery stools Assessment & Plan: Recent completion of Merrem, Amikacin C. diff negative (04/26/17) Stool leukocytes negative (04/26/17) stool culture (04/26/17) negative Status: Resolved (5) Respiratory failure Assessment & Plan: Trach in place, continue daily monitoring for secretions. No change in management at this time. Continue with aggressive suctioning multiple times a day per respiratory therapist. Monitor for signs of respiratory distress Thick secretions Duoneb 3ml INH Q6 and Mucomyst 4ml INH Q6H Robitussin 100mg PEG Q12H Scopolamine 1 patch TD Q3D JOO Status: Chronic (6) Sacral ulcer Assessment & Plan: Healed Cont with offloading/cushioning/turning Continue frequent turning, protective ointment and skin checks. Status: Resolved (7) History of coronary artery disease Assessment & Plan: s/p cardiac stents on 06/13/15 Cont ASA 81mg via PEG daily Cont Coreg 3.125mg PEG BID Cont Plavix 75mg PO daily Status: Acute (8) Seizures Assessment & Plan: Cont Keppra 500mg PEG BID for seizure prophylaxis Monitor for activity Status: Acute (9) Lower extremity edema Assessment & Plan: Improved Continue to monitor Status: Acute (10) Constipation Assessment & Plan: Resolved. Per the nurse, patient has not had a bowel movement in 5 days. Lactulose 30gm PEG once on 05/20/17 Status: Resolved (11) Prophylactic measure Assessment & Plan: Pepcid 20 mg PEG BID Lovenox 30mg SC daily SCDs and offloading boots continue to turn and reposition q2hrs Feeds increased to 60cc/hr. Per program advisor (05/02/17): tube feed goal: Isosource 1.5 @ 60cc/h Will continue tube feeds @ 60 unless patient cannot tolerate Continue to monitor medication administrations and clinical presentation weekly labs. Status: Acute <Chavis,Peter H - Last Filed: 05/21/17 15:16> Objective - Vital Signs/Intake and Output Vital Signs (last 24 hours): Temp Pulse Resp BP Pulse Ox 98 F 92 H 20 108/72 97 05/21/17 07:37 05/21/17 07:37 05/21/17 07:37 05/21/17 07:37 05/21/17 07:37 Intake and Output: 05/21/17 05/21/17 06:59 18:59 Intake Total 1380 Output Total 950 Balance 430 - Medications Medications: Current Medications Acetaminophen (Tylenol 650mg/20.3ml Solution Ud) 650 mg PEG Q6 PRN PRN Reason: Fever >100.4 F Last Admin: 04/07/17 02:45 Dose: 650 mg Acetylcysteine (Acetylcysteine 20%) 4 ml INH RQ8 [facility] Last Admin: 05/21/17 08:05 Dose: 4 ml Albuterol/Ipratropium (Duoneb 3 Mg/0.5 Mg (3 Ml) Ud) 3 ml INH RQ8 [facility] Last Admin: 05/21/17 08:05 Dose: 3 ml Aspirin (Aspirin Chewable) 81 mg PO DAILY [facility] Last Admin: 05/21/17 09:50 Dose: 81 mg Bethanechol Chloride (Urecholine) 50 mg PEG TID [facility] Last Admin: 05/21/17 13:31 Dose: 50 mg Carvedilol (Coreg) 3.125 mg PEG BID [facility] Last Admin: 05/21/17 09:50 Dose: 3.125 mg Clopidogrel Bisulfate (Plavix) 75 mg PO DAILY [facility] Last Admin: 05/21/17 09:50 Dose: 75 mg Enoxaparin Sodium (Lovenox) 30 mg SC DAILY [facility] Last Admin: 05/21/17 10:01 Dose: 30 mg Famotidine (Pepcid) 20 mg PEG BID [facility] Last Admin: 05/21/17 09:50 Dose: 20 mg Finasteride (Proscar) 5 mg PO DAILY [facility] Last Admin: 05/21/17 09:50 Dose: 5 mg Guaifenesin/Codeine Phosphate (Guaifenesin/Codeine) 10 ml PO DAILY [facility] Last Admin: 05/21/17 09:50 Dose: 10 ml Levetiracetam (Keppra) 500 mg PO BID [facility] Last Admin: 05/21/17 09:50 Dose: 500 mg Saccharomyces Boulardii (Florastor) 250 mg PO DAILY [facility] Last Admin: 05/21/17 09:50 Dose: 250 mg Scopolamine (Transderm-Scop) 1 patch TD Q3D [facility] Last Admin: 05/20/17 09:03 Dose: 1 patch Tamsulosin HCl (Flomax) 0.4 mg PO DAILY [facility] Last Admin: 05/21/17 09:50 Dose: 0.4 mg - Labs Labs: 05/18/17 07:14 05/18/17 07:14 PT 10.6 SECONDS (9.7-12.2) 11/24/15 14:10 INR 1.0 11/24/15 14:10 APTT 25 SECONDS (21-34) 11/24/15 14:10 Assessment and Plan (1) Prophylactic measure Status: Acute (2) Anoxic encephalopathy Status: Chronic (3) STEMI (ST elevation myocardial infarction) Status: Acute (4) Cardiac arrest Status: Acute (5) Seizures Status: Acute (6) Respiratory failure Status: Chronic Attending/Attestation - Attestation I have personally seen and examined this patient.: Yes I have fully participated in the care of the patient.: Yes I have reviewed all pertinent clinical information, including history, physical exam and plan: Yes
[2017-05-21] MEDS: Albuterol-Ipratrop 3 mg / 0.5 (3 ml) UD INH SCH ×2 (08:05→16:00)
[2017-05-21] MEDS: Acetylcysteine 20% Inhal Soln (4ml) INH SCH ×2 (08:05→16:00)
[2017-05-21] MEDS: guaiFENesin-Codeine 100-10mg/5ml Syrup (10ml) UD PO SCH (09:50)
[2017-05-21] MEDS: Saccharomyces Boulardi 250 mg Cap PO SCH (09:50)
[2017-05-21] MEDS: Enoxaparin 30 mg Syringe SC SCH (10:01)
[2017-05-22] MEDS: Albuterol-Ipratrop 3 mg / 0.5 (3 ml) UD INH SCH ×3 (00:01→15:57)
[2017-05-22] MEDS: Acetylcysteine 20% Inhal Soln (4ml) INH SCH ×3 (00:01→15:57)
--- NOTE | 2017-05-22 06:13 | CP.PCM.PN ---
<Vesna Turpin - Last Filed: 05/22/17 14:19> Subjective - Date & Time of Evaluation Date of Evaluation: 05/22/17 Time of Evaluation: 06:10 - Subjective Subjective: Medicine Progress Note- Dr. Chavis Service Patient was seen and examined at bedside in no acute distress. Patient is unable to answer questions or review of systems due to an anoxic brain injury (). Objective - Vital Signs/Intake and Output Vital Signs (last 24 hours): Temp Pulse Resp BP Pulse Ox 98.1 F 92 H 20 99/65 L 99 05/21/17 23:58 05/21/17 23:58 05/21/17 23:58 05/21/17 23:58 05/21/17 23:58 Intake and Output: 05/21/17 05/22/17 18:59 06:59 Intake Total 600 650 Output Total 300 50 Balance 300 600 - Medications Medications: Current Medications Acetaminophen (Tylenol 650mg/20.3ml Solution Ud) 650 mg PEG Q6 PRN PRN Reason: Fever >100.4 F Last Admin: 04/07/17 02:45 Dose: 650 mg Acetylcysteine (Acetylcysteine 20%) 4 ml INH RQ8 [facility] Last Admin: 05/22/17 00:01 Dose: 4 ml Albuterol/Ipratropium (Duoneb 3 Mg/0.5 Mg (3 Ml) Ud) 3 ml INH RQ8 [facility] Last Admin: 05/22/17 00:01 Dose: 3 ml Aspirin (Aspirin Chewable) 81 mg PO DAILY [facility] Last Admin: 05/21/17 09:50 Dose: 81 mg Bethanechol Chloride (Urecholine) 50 mg PEG TID [facility] Last Admin: 05/21/17 17:29 Dose: 50 mg Carvedilol (Coreg) 3.125 mg PEG BID [facility] Last Admin: 05/21/17 17:29 Dose: 3.125 mg Clopidogrel Bisulfate (Plavix) 75 mg PO DAILY [facility] Last Admin: 05/21/17 09:50 Dose: 75 mg Enoxaparin Sodium (Lovenox) 30 mg SC DAILY [facility] Last Admin: 05/21/17 10:01 Dose: 30 mg Famotidine (Pepcid) 20 mg PEG BID [facility] Last Admin: 05/21/17 17:29 Dose: 20 mg Finasteride (Proscar) 5 mg PO DAILY [facility] Last Admin: 05/21/17 09:50 Dose: 5 mg Guaifenesin/Codeine Phosphate (Guaifenesin/Codeine) 10 ml PO DAILY [facility] Last Admin: 05/21/17 09:50 Dose: 10 ml Levetiracetam (Keppra) 500 mg PO BID [facility] Last Admin: 05/21/17 17:29 Dose: 500 mg Saccharomyces Boulardii (Florastor) 250 mg PO DAILY [facility] Last Admin: 05/21/17 09:50 Dose: 250 mg Scopolamine (Transderm-Scop) 1 patch TD Q3D [facility] Last Admin: 05/20/17 09:03 Dose: 1 patch Tamsulosin HCl (Flomax) 0.4 mg PO DAILY [facility] Last Admin: 05/21/17 09:50 Dose: 0.4 mg - Labs Labs: 05/18/17 07:14 05/18/17 07:14 PT 10.6 SECONDS (9.7-12.2) 11/24/15 14:10 INR 1.0 11/24/15 14:10 APTT 25 SECONDS (21-34) 11/24/15 14:10 - Constitutional Appears: No Acute Distress - Head Exam Head Exam: NORMAL INSPECTION, NORMOCEPHALIC - Eye Exam Eye Exam: Normal appearance - ENT Exam ENT Exam: Mucous Membranes Moist - Neck Exam Neck Exam: absent: Full ROM, Normal Inspection (trach in place) - Respiratory Exam Respiratory Exam: Decreased Breath Sounds, Rhonchi, NORMAL BREATHING PATTERN - Cardiovascular Exam Cardiovascular Exam: REGULAR RHYTHM, +S1, +S2 - GI/Abdominal Exam GI & Abdominal Exam: Soft, Normal Bowel Sounds - Extremities Exam Extremities Exam: absent: Pedal Edema - Neurological Exam Neurological Exam: Altered. absent: Alert, Awake, Oriented x3 - Psychiatric Exam Psychiatric exam: Flat Affect. absent: Normal Affect, Normal Mood - Skin Skin Exam: Dry, Intact, Normal Color, Warm Assessment and Plan (1) Anoxic encephalopathy Assessment & Plan: s/p cardiac arrest in 05/2015 no acute changes Pt has non spontaneous movements. continue current management. Continue tube feeds- at goal of 60 Florastor 250mg PO TID via PEG Status: Chronic (2) UTI (urinary tract infection) Assessment & Plan: resolved patient afebrile, WBC 10.5 Completed course of Amikacin and Meropenem. amikacin discontinued on 04/18 ( total 10), Meropenem (04/13) total 7 days Urine culture (04/06/17): + Proteus Mirabilis [place] catheter in place Ordered- new condom catheter 05/22/17 Tylenol 650mg po q6 PEG PRN Will follow up with Thursday WEEKLY labs Status: Resolved (3) Urinary retention Assessment & Plan: Take note condom cath not always securely in place so Is and Os are approximate as patient does wet bed Ordered- new condom catheter on 05/22/17 Flomax 0.4mg PEG daily Proscar 5mg PEG daily continue Bethanecol 50mg PEG TID- started after persistent retention and found to be effective. monitor I's and O's Check bladder scan for residual urine three times weekly Status: Acute (4) Watery stools Assessment & Plan: Recent completion of Merrem, Amikacin C. diff negative (04/26/17) Stool leukocytes negative (04/26/17) stool culture (04/26/17) negative Status: Resolved (5) Respiratory failure Assessment & Plan: Trach in place, continue daily monitoring for secretions. No change in management at this time. Continue with aggressive suctioning multiple times a day per respiratory therapist. Monitor for signs of respiratory distress Thick secretions Duoneb 3ml INH Q6 and Mucomyst 4ml INH Q6H Robitussin 100mg PEG Q12H Scopolamine 1 patch TD Q3D JOO Status: Chronic (6) Sacral ulcer Assessment & Plan: Healed Cont with offloading/cushioning/turning Continue frequent turning, protective ointment and skin checks. Status: Resolved (7) History of coronary artery disease Assessment & Plan: s/p cardiac stents on 06/13/15 Cont ASA 81mg via PEG daily Cont Coreg 3.125mg PEG BID Cont Plavix 75mg PO daily Status: Acute (8) Seizures Assessment & Plan: Cont Keppra 500mg PEG BID for seizure prophylaxis Monitor for activity Status: Acute (9) Lower extremity edema Assessment & Plan: Improved Continue to monitor Status: Acute (10) Constipation Assessment & Plan: Resolved. Per the nurse, patient has not had a bowel movement in 5 days. Lactulose 30gm PEG once on 05/20/17 Status: Resolved (11) Prophylactic measure Assessment & Plan: Pepcid 20 mg PEG BID Lovenox 30mg SC daily SCDs and offloading boots continue to turn and reposition q2hrs Feeds increased to 60cc/hr. Per regional marketing director (05/02/17): tube feed goal: Isosource 1.5 @ 60cc/h Will continue tube feeds @ 60 unless patient cannot tolerate PICC line discontinued 05/22/17 Continue to monitor medication administrations and clinical presentation weekly labs. Status: Acute <Amandeep Chavis H - Last Filed: 05/22/17 16:23> Objective - Vital Signs/Intake and Output Vital Signs (last 24 hours): Temp Pulse Resp BP Pulse Ox 97.9 F 80 20 123/82 97 05/22/17 07:23 05/22/17 07:23 05/22/17 07:23 05/22/17 07:23 05/22/17 07:23 Intake and Output: 05/22/17 05/22/17 06:59 18:59 Intake Total 1050 600 Output Total 400 300 Balance 650 300 - Medications Medications: Current Medications Acetaminophen (Tylenol 650mg/20.3ml Solution Ud) 650 mg PEG Q6 PRN PRN Reason: Fever >100.4 F Last Admin: 04/07/17 02:45 Dose: 650 mg Acetylcysteine (Acetylcysteine 20%) 4 ml INH RQ8 [facility] Last Admin: 05/22/17 15:57 Dose: 4 ml Albuterol/Ipratropium (Duoneb 3 Mg/0.5 Mg (3 Ml) Ud) 3 ml INH RQ8 [facility] Last Admin: 05/22/17 15:57 Dose: 3 ml Aspirin (Aspirin Chewable) 81 mg PO DAILY [facility] Last Admin: 05/22/17 10:34 Dose: 81 mg Bethanechol Chloride (Urecholine) 50 mg PEG TID [facility] Last Admin: 05/22/17 14:34 Dose: 50 mg Carvedilol (Coreg) 3.125 mg PEG BID [facility] Last Admin: 05/22/17 10:34 Dose: 3.125 mg Clopidogrel Bisulfate (Plavix) 75 mg PO DAILY [facility] Last Admin: 05/22/17 10:00 Dose: 75 mg Enoxaparin Sodium (Lovenox) 30 mg SC DAILY [facility] Last Admin: 05/22/17 10:42 Dose: 30 mg Famotidine (Pepcid) 20 mg PEG BID [facility] Last Admin: 05/22/17 10:33 Dose: 20 mg Finasteride (Proscar) 5 mg PO DAILY [facility] Last Admin: 05/22/17 10:00 Dose: 5 mg Guaifenesin/Codeine Phosphate (Guaifenesin/Codeine) 10 ml PO DAILY [facility] Last Admin: 05/22/17 10:00 Dose: 10 ml Levetiracetam (Keppra) 500 mg PO BID [facility] Last Admin: 05/22/17 10:34 Dose: 500 mg Saccharomyces Boulardii (Florastor) 250 mg PO DAILY [facility] Last Admin: 05/22/17 10:34 Dose: 250 mg Scopolamine (Transderm-Scop) 1 patch TD Q3D [facility] Last Admin: 05/20/17 09:03 Dose: 1 patch Tamsulosin HCl (Flomax) 0.4 mg PO DAILY [facility] Last Admin: 05/22/17 10:36 Dose: 0.4 mg - Labs Labs: 05/18/17 07:14 05/18/17 07:14 PT 10.6 SECONDS (9.7-12.2) 11/24/15 14:10 INR 1.0 11/24/15 14:10 APTT 25 SECONDS (21-34) 11/24/15 14:10 Assessment and Plan (1) Prophylactic measure Status: Acute (2) Anoxic encephalopathy Status: Chronic (3) STEMI (ST elevation myocardial infarction) Status: Acute (4) Cardiac arrest Status: Acute (5) Seizures Status: Acute (6) Respiratory failure Status: Chronic Attending/Attestation - Attestation I have personally seen and examined this patient.: Yes I have fully participated in the care of the patient.: Yes I have reviewed all pertinent clinical information, including history, physical exam and plan: Yes
[2017-05-22] MEDS: guaiFENesin-Codeine 100-10mg/5ml Syrup (10ml) UD PO SCH (10:00)
[2017-05-22] MEDS: Saccharomyces Boulardi 250 mg Cap PO SCH (10:34)
[2017-05-22] MEDS: Enoxaparin 30 mg Syringe SC SCH (10:42)
[2017-05-23] MEDS: Acetylcysteine 20% Inhal Soln (4ml) INH SCH ×3 (04:07→16:35)
[2017-05-23] MEDS: Albuterol-Ipratrop 3 mg / 0.5 (3 ml) UD INH SCH ×3 (04:07→16:35)
--- NOTE | 2017-05-23 08:18 | CP.PCM.PN ---
Subjective - Date & Time of Evaluation Date of Evaluation: 05/23/17 Time of Evaluation: 03:00 - Subjective Subjective: Medicine Progress Note- Dr. Chavis Service Patient was seen and examined at bedside in no acute distress. Patient is unable to answer questions or review of systems due to an anoxic brain injury (). Objective - Vital Signs/Intake and Output Vital Signs (last 24 hours): Temp Pulse Resp BP Pulse Ox 97 F L 77 16 116/76 97 05/23/17 00:00 05/23/17 00:00 05/23/17 00:00 05/23/17 00:00 05/23/17 00:00 Intake and Output: 05/23/17 05/23/17 06:59 18:59 Intake Total 1000 Output Total 1050 Balance -50 - Medications Medications: Current Medications Acetaminophen (Tylenol 650mg/20.3ml Solution Ud) 650 mg PEG Q6 PRN PRN Reason: Fever >100.4 F Last Admin: 04/07/17 02:45 Dose: 650 mg Acetylcysteine (Acetylcysteine 20%) 4 ml INH RQ8 [facility] Last Admin: 05/23/17 04:07 Dose: Not Given Albuterol/Ipratropium (Duoneb 3 Mg/0.5 Mg (3 Ml) Ud) 3 ml INH RQ8 [facility] Last Admin: 05/23/17 04:07 Dose: Not Given Aspirin (Aspirin Chewable) 81 mg PO DAILY [facility] Last Admin: 05/22/17 10:34 Dose: 81 mg Bethanechol Chloride (Urecholine) 50 mg PEG TID [facility] Last Admin: 05/22/17 17:28 Dose: 50 mg Carvedilol (Coreg) 3.125 mg PEG BID [facility] Last Admin: 05/22/17 17:27 Dose: 3.125 mg Clopidogrel Bisulfate (Plavix) 75 mg PO DAILY [facility] Last Admin: 05/22/17 10:00 Dose: 75 mg Enoxaparin Sodium (Lovenox) 30 mg SC DAILY [facility] Last Admin: 05/22/17 10:42 Dose: 30 mg Famotidine (Pepcid) 20 mg PEG BID [facility] Last Admin: 05/22/17 10:33 Dose: 20 mg Finasteride (Proscar) 5 mg PO DAILY [facility] Last Admin: 05/22/17 10:00 Dose: 5 mg Guaifenesin/Codeine Phosphate (Guaifenesin/Codeine) 10 ml PO DAILY [facility] Last Admin: 05/22/17 10:00 Dose: 10 ml Levetiracetam (Keppra) 500 mg PO BID [facility] Last Admin: 05/22/17 17:27 Dose: 500 mg Saccharomyces Boulardii (Florastor) 250 mg PO DAILY [facility] Last Admin: 05/22/17 10:34 Dose: 250 mg Scopolamine (Transderm-Scop) 1 patch TD Q3D [facility] Last Admin: 05/20/17 09:03 Dose: 1 patch Tamsulosin HCl (Flomax) 0.4 mg PO DAILY [facility] Last Admin: 05/22/17 10:36 Dose: 0.4 mg - Labs Labs: 05/18/17 07:14 05/18/17 07:14 PT 10.6 SECONDS (9.7-12.2) 11/24/15 14:10 INR 1.0 11/24/15 14:10 APTT 25 SECONDS (21-34) 11/24/15 14:10 - Constitutional Appears: Well - Head Exam Head Exam: ATRAUMATIC, NORMAL INSPECTION, NORMOCEPHALIC - Eye Exam Eye Exam: Normal appearance - ENT Exam ENT Exam: Mucous Membranes Moist - Neck Exam Neck Exam: Normal Inspection - Respiratory Exam Respiratory Exam: Clear to Ausculation Bilateral - Cardiovascular Exam Cardiovascular Exam: REGULAR RHYTHM - GI/Abdominal Exam GI & Abdominal Exam: Normal Bowel Sounds - Rectal Exam Rectal Exam: Deferred - Extremities Exam Extremities Exam: Normal Inspection - Neurological Exam Neurological Exam: Awake. absent: Alert, Oriented x3 - Psychiatric Exam Psychiatric exam: Flat Affect - Skin Skin Exam: Normal Color, Warm Assessment and Plan - Assessment and Plan (Free Text) Assessment: Assessment and Plan (1) Anoxic encephalopathy Assessment & Plan: s/p cardiac arrest in 05/2015 no acute changes Pt has non spontaneous movements. continue current management. Continue tube feeds- at goal of 60 Florastor 250mg PO TID via PEG Status: Chronic (2) UTI (urinary tract infection) Assessment & Plan: resolved patient afebrile, WBC 10.5 Completed course of Amikacin and Meropenem. amikacin discontinued on 04/18 ( total 10), Meropenem (04/13) total 7 days Urine culture (04/06/17): + Proteus Mirabilis [place] catheter in place Ordered- new condom catheter 05/22/17 Tylenol 650mg po q6 PEG PRN Will follow up with Thursday WEEKLY labs Status: Resolved (3) Urinary retention Assessment & Plan: Take note condom cath not always securely in place so Is and Os are approximate as patient does wet bed Ordered- new condom catheter on 05/22/17 Flomax 0.4mg PEG daily Proscar 5mg PEG daily continue Bethanecol 50mg PEG TID- started after persistent retention and found to be effective. monitor I's and O's Check bladder scan for residual urine three times weekly Status: Acute (4) Watery stools Assessment & Plan: Recent completion of Merrem, Amikacin C. diff negative (04/26/17) Stool leukocytes negative (04/26/17) stool culture (04/26/17) negative Status: Resolved (5) Respiratory failure Assessment & Plan: Trach in place, continue daily monitoring for secretions. No change in management at this time. Continue with aggressive suctioning multiple times a day per respiratory therapist. Monitor for signs of respiratory distress Thick secretions Duoneb 3ml INH Q6 and Mucomyst 4ml INH Q6H Robitussin 100mg PEG Q12H Scopolamine 1 patch TD Q3D JOO Status: Chronic (6) Sacral ulcer Assessment & Plan: Healed Cont with offloading/cushioning/turning Continue frequent turning, protective ointment and skin checks. Status: Resolved (7) History of coronary artery disease Assessment & Plan: s/p cardiac stents on 06/13/15 Cont ASA 81mg via PEG daily Cont Coreg 3.125mg PEG BID Cont Plavix 75mg PO daily Status: Acute (8) Seizures Assessment & Plan: Cont Keppra 500mg PEG BID for seizure prophylaxis Monitor for activity Status: Acute (9) Lower extremity edema Assessment & Plan: Improved Continue to monitor Status: Acute (10) Constipation Assessment & Plan: Resolved. Per the nurse, patient has not had a bowel movement in 5 days. Lactulose 30gm PEG once on 05/20/17 Status: Resolved (11) Prophylactic measure Assessment & Plan: Pepcid 20 mg PEG BID Lovenox 30mg SC daily SCDs and offloading boots continue to turn and reposition q2hrs Feeds increased to 60cc/hr. Per correctional supervisor lieutenant (05/02/17): tube feed goal: Isosource 1.5 @ 60cc/h Will continue tube feeds @ 60 unless patient cannot tolerate PICC line discontinued 05/22/17 Continue to monitor medication administrations and clinical presentation weekly labs. Status: Acute
[2017-05-23] MEDS: Enoxaparin 30 mg Syringe SC SCH (09:32)
[2017-05-23] MEDS: Saccharomyces Boulardi 250 mg Cap PO SCH (09:45)
[2017-05-23] MEDS: guaiFENesin-Codeine 100-10mg/5ml Syrup (10ml) UD PO SCH (10:00)
[2017-05-24] MEDS: Albuterol-Ipratrop 3 mg / 0.5 (3 ml) UD INH SCH ×4 (00:10→23:52)
[2017-05-24] MEDS: Acetylcysteine 20% Inhal Soln (4ml) INH SCH ×4 (00:10→23:52)
--- NOTE | 2017-05-24 02:36 | CP.PCM.PN ---
Subjective - Date & Time of Evaluation Date of Evaluation: 05/24/17 Time of Evaluation: 05:45 - Subjective Subjective: Medicine Progress Note- Dr. Chavis Service Patient was seen and examined at bedside in no acute distress. Patient is unable to answer questions or review of systems due to an anoxic brain injury (). Objective - Vital Signs/Intake and Output Vital Signs (last 24 hours): Temp Pulse Resp BP Pulse Ox 98.2 F 69 20 120/79 99 05/23/17 23:52 05/23/17 23:52 05/23/17 23:52 05/23/17 23:52 05/23/17 23:52 Intake and Output: 05/23/17 05/24/17 18:59 06:59 Intake Total 600 Balance 600 - Medications Medications: Current Medications Acetaminophen (Tylenol 650mg/20.3ml Solution Ud) 650 mg PEG Q6 PRN PRN Reason: Fever >100.4 F Last Admin: 04/07/17 02:45 Dose: 650 mg Acetylcysteine (Acetylcysteine 20%) 4 ml INH RQ8 [facility] Last Admin: 05/24/17 00:10 Dose: 4 ml Albuterol/Ipratropium (Duoneb 3 Mg/0.5 Mg (3 Ml) Ud) 3 ml INH RQ8 [facility] Last Admin: 05/24/17 00:10 Dose: 3 ml Aspirin (Aspirin Chewable) 81 mg PO DAILY [facility] Last Admin: 05/23/17 09:33 Dose: 81 mg Bethanechol Chloride (Urecholine) 50 mg PEG TID [facility] Last Admin: 05/23/17 14:20 Dose: 50 mg Carvedilol (Coreg) 3.125 mg PEG BID [facility] Last Admin: 05/23/17 09:32 Dose: 3.125 mg Clopidogrel Bisulfate (Plavix) 75 mg PO DAILY [facility] Last Admin: 05/23/17 09:32 Dose: 75 mg Enoxaparin Sodium (Lovenox) 30 mg SC DAILY [facility] Last Admin: 05/23/17 09:32 Dose: 30 mg Famotidine (Pepcid) 20 mg PEG BID [facility] Last Admin: 05/23/17 09:39 Dose: Not Given Finasteride (Proscar) 5 mg PO DAILY [facility] Last Admin: 05/23/17 09:34 Dose: 5 mg Guaifenesin/Codeine Phosphate (Guaifenesin/Codeine) 10 ml PO DAILY [facility] Last Admin: 05/23/17 10:00 Dose: Not Given Levetiracetam (Keppra) 500 mg PO BID [facility] Last Admin: 05/23/17 09:33 Dose: 500 mg Saccharomyces Boulardii (Florastor) 250 mg PO DAILY [facility] Last Admin: 05/23/17 09:45 Dose: 250 mg Scopolamine (Transderm-Scop) 1 patch TD Q3D [facility] Last Admin: 05/23/17 09:41 Dose: 1 patch Tamsulosin HCl (Flomax) 0.4 mg PO DAILY [facility] Last Admin: 05/23/17 09:33 Dose: 0.4 mg - Labs Labs: 05/18/17 07:14 05/18/17 07:14 PT 10.6 SECONDS (9.7-12.2) 11/24/15 14:10 INR 1.0 11/24/15 14:10 APTT 25 SECONDS (21-34) 11/24/15 14:10 - Constitutional Appears: No Acute Distress - Head Exam Head Exam: NORMAL INSPECTION - Eye Exam Eye Exam: Normal appearance - ENT Exam ENT Exam: Mucous Membranes Moist - Neck Exam Neck Exam: Normal Inspection - Respiratory Exam Respiratory Exam: Clear to Ausculation Bilateral, NORMAL BREATHING PATTERN - Cardiovascular Exam Cardiovascular Exam: REGULAR RHYTHM - GI/Abdominal Exam GI & Abdominal Exam: Normal Bowel Sounds - Rectal Exam Rectal Exam: Deferred - Extremities Exam Additional comments: immobile - Neurological Exam Neurological Exam: Awake, Motor Sensory Deficit. absent: CN II-XII Intact - Psychiatric Exam Psychiatric exam: Flat Affect - Skin Skin Exam: Normal Color Assessment and Plan - Assessment and Plan (Free Text) Assessment: (1) Anoxic encephalopathy Assessment & Plan: s/p cardiac arrest in 05/2015 no acute changes Pt has non spontaneous movements. continue current management. Continue tube feeds- at goal of 60 Florastor 250mg PO TID via PEG Status: Chronic (2) UTI (urinary tract infection) Assessment & Plan: resolved patient afebrile, WBC 10.5 Completed course of Amikacin and Meropenem. amikacin discontinued on 04/18 ( total 10), Meropenem (04/13) total 7 days Urine culture (04/06/17): + Proteus Mirabilis [place] catheter in place Ordered- new condom catheter 05/22/17 Tylenol 650mg po q6 PEG PRN Will follow up with Thursday WEEKLY labs Status: Resolved (3) Urinary retention Assessment & Plan: Take note condom cath not always securely in place so Is and Os are approximate as patient does wet bed Ordered- new condom catheter on 05/22/17 Flomax 0.4mg PEG daily Proscar 5mg PEG daily continue Bethanecol 50mg PEG TID- started after persistent retention and found to be effective. monitor I's and O's Check bladder scan for residual urine three times weekly Status: Acute (4) Watery stools Assessment & Plan: Recent completion of Merrem, Amikacin C. diff negative (04/26/17) Stool leukocytes negative (04/26/17) stool culture (04/26/17) negative Status: Resolved (5) Respiratory failure Assessment & Plan: Trach in place, continue daily monitoring for secretions. No change in management at this time. Continue with aggressive suctioning multiple times a day per respiratory therapist. Monitor for signs of respiratory distress Thick secretions Duoneb 3ml INH Q6 and Mucomyst 4ml INH Q6H Robitussin 100mg PEG Q12H Scopolamine 1 patch TD Q3D JOO Status: Chronic (6) Sacral ulcer Assessment & Plan: Healed Cont with offloading/cushioning/turning Continue frequent turning, protective ointment and skin checks. Status: Resolved (7) History of coronary artery disease Assessment & Plan: s/p cardiac stents on 06/13/15 Cont ASA 81mg via PEG daily Cont Coreg 3.125mg PEG BID Cont Plavix 75mg PO daily Status: Acute (8) Seizures Assessment & Plan: Cont Keppra 500mg PEG BID for seizure prophylaxis Monitor for activity Status: Acute (9) Lower extremity edema Assessment & Plan: Improved Continue to monitor Status: Acute (10) Constipation Assessment & Plan: Resolved. Per the nurse, patient has not had a bowel movement in 5 days. Lactulose 30gm PEG once on 05/20/17 Status: Resolved (11) Prophylactic measure Assessment & Plan: Pepcid 20 mg PEG BID Lovenox 30mg SC daily SCDs and offloading boots continue to turn and reposition q2hrs Feeds increased to 60cc/hr. Per production boring machine operator (05/02/17): tube feed goal: Isosource 1.5 @ 60cc/h Will continue tube feeds @ 60 unless patient cannot tolerate PICC line discontinued 05/22/17 Continue to monitor medication administrations and clinical presentation weekly labs. Status: Acute
[2017-05-24] MEDS: Saccharomyces Boulardi 250 mg Cap PO SCH (09:56)
[2017-05-24] MEDS: guaiFENesin-Codeine 100-10mg/5ml Syrup (10ml) UD PO SCH (09:56)
[2017-05-24] MEDS: Enoxaparin 30 mg Syringe SC SCH (10:25)
--- NOTE | 2017-05-24 14:43 | CP.PCM.PN ---
Subjective - Date & Time of Evaluation Date of Evaluation: 05/24/17 Time of Evaluation: 09:00 - Subjective Subjective: afeb off antibiotics cont supportive rx Objective - Vital Signs/Intake and Output Vital Signs (last 24 hours): Temp Pulse Resp BP Pulse Ox 98.4 F 74 20 126/75 96 05/24/17 08:00 05/24/17 08:00 05/24/17 08:00 05/24/17 08:00 05/24/17 08:00 Intake and Output: 05/24/17 05/24/17 06:59 18:59 Intake Total 1200 Output Total 400 Balance 800 - Medications Medications: Current Medications Acetaminophen (Tylenol 650mg/20.3ml Solution Ud) 650 mg PEG Q6 PRN PRN Reason: Fever >100.4 F Last Admin: 04/07/17 02:45 Dose: 650 mg Acetylcysteine (Acetylcysteine 20%) 4 ml INH RQ8 [facility] Last Admin: 05/24/17 07:35 Dose: 4 ml Albuterol/Ipratropium (Duoneb 3 Mg/0.5 Mg (3 Ml) Ud) 3 ml INH RQ8 [facility] Last Admin: 05/24/17 07:35 Dose: 3 ml Aspirin (Aspirin Chewable) 81 mg PO DAILY [facility] Last Admin: 05/24/17 09:55 Dose: 81 mg Bethanechol Chloride (Urecholine) 50 mg PEG TID [facility] Last Admin: 05/24/17 14:09 Dose: 50 mg Carvedilol (Coreg) 3.125 mg PEG BID [facility] Last Admin: 05/24/17 09:56 Dose: 3.125 mg Clopidogrel Bisulfate (Plavix) 75 mg PO DAILY [facility] Last Admin: 05/24/17 09:57 Dose: 75 mg Enoxaparin Sodium (Lovenox) 30 mg SC DAILY [facility] Last Admin: 05/24/17 10:25 Dose: 30 mg Famotidine (Pepcid) 20 mg PEG BID [facility] Last Admin: 05/24/17 09:57 Dose: 20 mg Finasteride (Proscar) 5 mg PO DAILY [facility] Last Admin: 05/24/17 09:57 Dose: 5 mg Guaifenesin/Codeine Phosphate (Guaifenesin/Codeine) 10 ml PO DAILY [facility] Last Admin: 05/24/17 09:56 Dose: 10 ml Levetiracetam (Keppra) 500 mg PO BID [facility] Last Admin: 05/24/17 09:56 Dose: 500 mg Saccharomyces Boulardii (Florastor) 250 mg PO DAILY [facility] Last Admin: 05/24/17 09:56 Dose: 250 mg Scopolamine (Transderm-Scop) 1 patch TD Q3D [facility] Last Admin: 05/23/17 09:41 Dose: 1 patch Tamsulosin HCl (Flomax) 0.4 mg PO DAILY [facility] Last Admin: 05/24/17 09:56 Dose: 0.4 mg - Labs Labs: 05/18/17 07:14 05/18/17 07:14 PT 10.6 SECONDS (9.7-12.2) 11/24/15 14:10 INR 1.0 11/24/15 14:10 APTT 25 SECONDS (21-34) 11/24/15 14:10 Assessment and Plan (1) UTI (urinary tract infection) Status: Resolved (2) Anoxic encephalopathy Status: Chronic
[2017-05-25] MEDS: Albuterol-Ipratrop 3 mg / 0.5 (3 ml) UD INH SCH ×2 (07:42→17:02)
[2017-05-25] MEDS: Acetylcysteine 20% Inhal Soln (4ml) INH SCH ×2 (07:42→17:02)
[2017-05-25] MEDS: Enoxaparin 30 mg Syringe SC SCH (09:27)
[2017-05-25] MEDS: Saccharomyces Boulardi 250 mg Cap PO SCH (09:28)
--- NOTE | 2017-05-25 10:35 | CP.PCM.PN ---
<Tyra Yen - Last Filed: 05/25/17 18:51> Subjective - Date & Time of Evaluation Date of Evaluation: 05/25/17 Time of Evaluation: 08:00 - Subjective Subjective: Medicine Progress Note- Dr. Ying's Service Patient was seen and examined at bedside in no acute distress. Patient is unable to answer questions or review of systems due to an anoxic brain injury (). Objective - Vital Signs/Intake and Output Vital Signs (last 24 hours): Temp Pulse Resp BP Pulse Ox 98.2 F 72 20 125/85 98 05/25/17 07:29 05/25/17 07:29 05/25/17 07:29 05/25/17 07:29 05/25/17 07:29 Intake and Output: 05/25/17 05/25/17 06:59 18:59 Intake Total 1200 Output Total 750 Balance 450 - Medications Medications: Current Medications Acetaminophen (Tylenol 650mg/20.3ml Solution Ud) 650 mg PEG Q6 PRN PRN Reason: Fever >100.4 F Last Admin: 04/07/17 02:45 Dose: 650 mg Acetylcysteine (Acetylcysteine 20%) 4 ml INH RQ8 [facility] Last Admin: 05/25/17 07:42 Dose: 4 ml Albuterol/Ipratropium (Duoneb 3 Mg/0.5 Mg (3 Ml) Ud) 3 ml INH RQ8 [facility] Last Admin: 05/25/17 07:42 Dose: 3 ml Aspirin (Aspirin Chewable) 81 mg PO DAILY [facility] Last Admin: 05/25/17 09:27 Dose: 81 mg Bethanechol Chloride (Urecholine) 50 mg PEG TID [facility] Last Admin: 05/25/17 09:28 Dose: 50 mg Carvedilol (Coreg) 3.125 mg PEG BID [facility] Last Admin: 05/25/17 09:28 Dose: 3.125 mg Clopidogrel Bisulfate (Plavix) 75 mg PO DAILY [facility] Last Admin: 05/25/17 09:28 Dose: 75 mg Enoxaparin Sodium (Lovenox) 30 mg SC DAILY [facility] Last Admin: 05/25/17 09:27 Dose: 30 mg Famotidine (Pepcid) 20 mg PEG BID [facility] Last Admin: 05/25/17 09:28 Dose: 20 mg Finasteride (Proscar) 5 mg PO DAILY [facility] Last Admin: 05/24/17 09:57 Dose: 5 mg Guaifenesin/Codeine Phosphate (Guaifenesin/Codeine) 10 ml PO DAILY [facility] Last Admin: 05/24/17 09:56 Dose: 10 ml Levetiracetam (Keppra) 500 mg PO BID [facility] Last Admin: 05/25/17 09:27 Dose: 500 mg Saccharomyces Boulardii (Florastor) 250 mg PO DAILY [facility] Last Admin: 05/25/17 09:28 Dose: 250 mg Scopolamine (Transderm-Scop) 1 patch TD Q3D [facility] Last Admin: 05/23/17 09:41 Dose: 1 patch Tamsulosin HCl (Flomax) 0.4 mg PO DAILY [facility] Last Admin: 05/25/17 09:28 Dose: 0.4 mg - Labs Labs: 05/18/17 07:14 05/18/17 07:14 PT 10.6 SECONDS (9.7-12.2) 11/24/15 14:10 INR 1.0 11/24/15 14:10 APTT 25 SECONDS (21-34) 11/24/15 14:10 - Constitutional Appears: No Acute Distress - Head Exam Head Exam: ATRAUMATIC, NORMAL INSPECTION, NORMOCEPHALIC - Eye Exam Eye Exam: EOMI, Normal appearance, PERRL - ENT Exam ENT Exam: Mucous Membranes Moist - Neck Exam Neck Exam: Normal Inspection Additional comments: trach in place - Respiratory Exam Respiratory Exam: Clear to Ausculation Bilateral, NORMAL BREATHING PATTERN - Cardiovascular Exam Cardiovascular Exam: REGULAR RHYTHM, RRR, +S1, +S2. absent: Murmur - GI/Abdominal Exam GI & Abdominal Exam: Soft, Normal Bowel Sounds. absent: Firm, Rigid, Tenderness - Extremities Exam Extremities Exam: Full ROM, Normal Capillary Refill, Normal Inspection. absent : Joint Swelling, Pedal Edema - Back Exam Back Exam: NORMAL INSPECTION - Neurological Exam Neurological Exam: Awake, Motor Sensory Deficit. absent: Alert, CN II-XII Intact, Oriented x3 - Psychiatric Exam Psychiatric exam: Flat Affect - Skin Skin Exam: Dry, Intact, Normal Color, Warm Assessment and Plan - Assessment and Plan (Free Text) Assessment: (1) Anoxic encephalopathy Assessment & Plan: s/p cardiac arrest in 05/2015 no acute changes Pt has non spontaneous movements. continue current management. Continue tube feeds- at goal of 60 Florastor 250mg PO TID via PEG Status: Chronic (2) UTI (urinary tract infection) Assessment & Plan: resolved patient afebrile, WBC 10.5 Completed course of Amikacin and Meropenem. amikacin discontinued on 04/18 ( total 10), Meropenem (04/13) total 7 days Urine culture (04/06/17): + Proteus Mirabilis [place] catheter in place Ordered- new condom catheter 05/22/17 Tylenol 650mg po q6 PEG PRN Will follow up with Thursday WEEKLY labs Status: Resolved (3) Urinary retention Assessment & Plan: Take note condom cath not always securely in place so Is and Os are approximate as patient does wet bed Ordered- new condom catheter on 05/22/17 Flomax 0.4mg PEG daily Proscar 5mg PEG daily continue Bethanecol 50mg PEG TID- started after persistent retention and found to be effective. monitor I's and O's Check bladder scan for residual urine three times weekly Status: Acute (4) Watery stools Assessment & Plan: Recent completion of Merrem, Amikacin C. diff negative (04/26/17) Stool leukocytes negative (04/26/17) stool culture (04/26/17) negative Status: Resolved (5) Respiratory failure Assessment & Plan: Trach in place, continue daily monitoring for secretions. No change in management at this time. Continue with aggressive suctioning multiple times a day per respiratory therapist. Monitor for signs of respiratory distress Thick secretions Duoneb 3ml INH Q6 and Mucomyst 4ml INH Q6H Robitussin 100mg PEG Q12H Scopolamine 1 patch TD Q3D JOO Status: Chronic (6) Sacral ulcer Assessment & Plan: Healed Cont with offloading/cushioning/turning Continue frequent turning, protective ointment and skin checks. Status: Resolved (7) History of coronary artery disease Assessment & Plan: s/p cardiac stents on 06/13/15 Cont ASA 81mg via PEG daily Cont Coreg 3.125mg PEG BID Cont Plavix 75mg PO daily Status: Acute (8) Seizures Assessment & Plan: Cont Keppra 500mg PEG BID for seizure prophylaxis Monitor for activity Status: Acute (9) Lower extremity edema Assessment & Plan: Improved Continue to monitor Status: Acute (10) Constipation Assessment & Plan: Resolved. Per the nurse, patient has not had a bowel movement in 5 days. Lactulose 30gm PEG once on 05/20/17 Status: Resolved (11) Prophylactic measure Assessment & Plan: Pepcid 20 mg PEG BID Lovenox 30mg SC daily SCDs and offloading boots continue to turn and reposition q2hrs Feeds increased to 60cc/hr. Per air support control officer (05/02/17): tube feed goal: Isosource 1.5 @ 60cc/h Will continue tube feeds @ 60 unless patient cannot tolerate PICC line discontinued 05/22/17 Continue to monitor medication administrations and clinical presentation weekly labs. Status: Acute <StepanDonnell M - Last Filed: 05/26/17 09:53> Objective - Vital Signs/Intake and Output Vital Signs (last 24 hours): Temp Pulse Resp BP Pulse Ox 98.9 F 96 H 20 105/71 99 05/26/17 07:32 05/26/17 07:32 05/26/17 07:32 05/26/17 07:32 05/26/17 07:32 Intake and Output: 05/26/17 05/26/17 06:59 18:59 Intake Total 600 Output Total 401 Balance 199 - Medications Medications: Current Medications Acetaminophen (Tylenol 650mg/20.3ml Solution Ud) 650 mg PEG Q6 PRN PRN Reason: Fever >100.4 F Last Admin: 04/07/17 02:45 Dose: 650 mg Acetylcysteine (Acetylcysteine 20%) 4 ml INH RQ8 [facility] Last Admin: 05/26/17 07:45 Dose: 4 ml Albuterol/Ipratropium (Duoneb 3 Mg/0.5 Mg (3 Ml) Ud) 3 ml INH RQ8 [facility] Last Admin: 05/26/17 07:45 Dose: 3 ml Aspirin (Aspirin Chewable) 81 mg PO DAILY [facility] Last Admin: 05/25/17 09:27 Dose: 81 mg Bethanechol Chloride (Urecholine) 50 mg PEG TID [facility] Last Admin: 05/25/17 18:28 Dose: 50 mg Carvedilol (Coreg) 3.125 mg PEG BID [facility] Last Admin: 05/25/17 18:29 Dose: 3.125 mg Clopidogrel Bisulfate (Plavix) 75 mg PO DAILY [facility] Last Admin: 05/25/17 09:28 Dose: 75 mg Enoxaparin Sodium (Lovenox) 30 mg SC DAILY [facility] Last Admin: 05/25/17 09:27 Dose: 30 mg Famotidine (Pepcid) 20 mg PEG BID [facility] Last Admin: 05/25/17 18:29 Dose: 20 mg Finasteride (Proscar) 5 mg PO DAILY [facility] Last Admin: 05/24/17 09:57 Dose: 5 mg Guaifenesin/Codeine Phosphate (Guaifenesin/Codeine) 10 ml PO DAILY [facility] Last Admin: 05/24/17 09:56 Dose: 10 ml Levetiracetam (Keppra) 500 mg PO BID [facility] Last Admin: 05/25/17 18:27 Dose: 500 mg Saccharomyces Boulardii (Florastor) 250 mg PO DAILY [facility] Last Admin: 05/25/17 09:28 Dose: 250 mg Scopolamine (Transderm-Scop) 1 patch TD Q3D [facility] Last Admin: 05/23/17 09:41 Dose: 1 patch Tamsulosin HCl (Flomax) 0.4 mg PO DAILY [facility] Last Admin: 05/25/17 09:28 Dose: 0.4 mg - Labs Labs: 05/18/17 07:14 05/18/17 07:14 PT 10.6 SECONDS (9.7-12.2) 11/24/15 14:10 INR 1.0 11/24/15 14:10 APTT 25 SECONDS (21-34) 11/24/15 14:10 Attending/Attestation - Attestation I have personally seen and examined this patient.: Yes I have fully participated in the care of the patient.: Yes Notes (Text): 05/26/17 09:53 Patient was seen and examined at bedside with the resident This is no change in clinical condition Continue current management Turn and position patient every 2 hours Local care of the tracheostomy site and the PEG site Discussed the plan of care with the resident agree with the history and physical and assessment/plan documented
--- NOTE | 2017-05-26 00:31 | CP.PCM.PN ---
<Tanya Campos - Last Filed: 05/26/17 00:29> Subjective - Date & Time of Evaluation Date of Evaluation: 05/26/17 Time of Evaluation: 00:29 - Subjective Subjective: Medicine Note For Dr. Ying, Patient was seen and examined at bedside. Resting comfortably in bed. Patient was seen and examined at bedside in no acute distress. Patient is unable to answer questions or review of systems due to an anoxic brain injury (05/2015). Objective - Vital Signs/Intake and Output Vital Signs (last 24 hours): Temp Pulse Resp BP Pulse Ox 98.7 F 87 20 97/67 L 99 05/25/17 23:53 05/25/17 23:53 05/25/17 23:53 05/25/17 23:53 05/25/17 23:53 Intake and Output: 05/25/17 05/26/17 18:59 06:59 Intake Total 600 600 Output Total 401 Balance 600 199 - Medications Medications: Current Medications Acetaminophen (Tylenol 650mg/20.3ml Solution Ud) 650 mg PEG Q6 PRN PRN Reason: Fever >100.4 F Last Admin: 04/07/17 02:45 Dose: 650 mg Acetylcysteine (Acetylcysteine 20%) 4 ml INH RQ8 [facility] Last Admin: 05/25/17 17:02 Dose: 4 ml Albuterol/Ipratropium (Duoneb 3 Mg/0.5 Mg (3 Ml) Ud) 3 ml INH RQ8 [facility] Last Admin: 05/25/17 17:02 Dose: 3 ml Aspirin (Aspirin Chewable) 81 mg PO DAILY [facility] Last Admin: 05/25/17 09:27 Dose: 81 mg Bethanechol Chloride (Urecholine) 50 mg PEG TID [facility] Last Admin: 05/25/17 18:28 Dose: 50 mg Carvedilol (Coreg) 3.125 mg PEG BID [facility] Last Admin: 05/25/17 18:29 Dose: 3.125 mg Clopidogrel Bisulfate (Plavix) 75 mg PO DAILY [facility] Last Admin: 05/25/17 09:28 Dose: 75 mg Enoxaparin Sodium (Lovenox) 30 mg SC DAILY [facility] Last Admin: 05/25/17 09:27 Dose: 30 mg Famotidine (Pepcid) 20 mg PEG BID [facility] Last Admin: 05/25/17 18:29 Dose: 20 mg Finasteride (Proscar) 5 mg PO DAILY [facility] Last Admin: 05/24/17 09:57 Dose: 5 mg Guaifenesin/Codeine Phosphate (Guaifenesin/Codeine) 10 ml PO DAILY [facility] Last Admin: 05/24/17 09:56 Dose: 10 ml Levetiracetam (Keppra) 500 mg PO BID [facility] Last Admin: 05/25/17 18:27 Dose: 500 mg Saccharomyces Boulardii (Florastor) 250 mg PO DAILY [facility] Last Admin: 05/25/17 09:28 Dose: 250 mg Scopolamine (Transderm-Scop) 1 patch TD Q3D [facility] Last Admin: 05/23/17 09:41 Dose: 1 patch Tamsulosin HCl (Flomax) 0.4 mg PO DAILY [facility] Last Admin: 05/25/17 09:28 Dose: 0.4 mg - Labs Labs: 05/18/17 07:14 05/18/17 07:14 PT 10.6 SECONDS (9.7-12.2) 11/24/15 14:10 INR 1.0 11/24/15 14:10 APTT 25 SECONDS (21-34) 11/24/15 14:10 - Constitutional Appears: No Acute Distress - Head Exam Head Exam: NORMAL INSPECTION, NORMOCEPHALIC - ENT Exam ENT Exam: Mucous Membranes Moist - Neck Exam Additional comments: trach in place - Respiratory Exam Respiratory Exam: NORMAL BREATHING PATTERN. absent: Wheezes - Cardiovascular Exam Cardiovascular Exam: REGULAR RHYTHM - GI/Abdominal Exam GI & Abdominal Exam: Soft, Normal Bowel Sounds. absent: Tenderness Additional comments: PEG in place - Extremities Exam Extremities Exam: Normal Inspection. absent: Pedal Edema, Tenderness Assessment and Plan - Assessment and Plan (Free Text) Plan: (1) Anoxic encephalopathy Assessment & Plan: s/p cardiac arrest in 05/2015 no acute changes Pt has non spontaneous movements. continue current management. Continue tube feeds- at goal of 60 Florastor 250mg PO TID via PEG Status: Chronic (2) UTI (urinary tract infection) Assessment & Plan: resolved patient afebrile, WBC 10.5 Completed course of Amikacin and Meropenem. amikacin discontinued on 04/18 ( total 10), Meropenem (04/13) total 7 days Urine culture (04/06/17): + Proteus Mirabilis [place] catheter in place Ordered- new condom catheter 05/22/17 Tylenol 650mg po q6 PEG PRN Will follow up with Thursday WEEKLY labs Status: Resolved (3) Urinary retention Assessment & Plan: Take note condom cath not always securely in place so Is and Os are approximate as patient does wet bed Ordered- new condom catheter on 05/22/17 Flomax 0.4mg PEG daily Proscar 5mg PEG daily continue Bethanecol 50mg PEG TID- started after persistent retention and found to be effective. monitor I's and O's Check bladder scan for residual urine three times weekly Status: Acute (4) Watery stools Assessment & Plan: Recent completion of Merrem, Amikacin C. diff negative (04/26/17) Stool leukocytes negative (04/26/17) stool culture (04/26/17) negative Status: Resolved (5) Respiratory failure Assessment & Plan: Trach in place, continue daily monitoring for secretions. No change in management at this time. Continue with aggressive suctioning multiple times a day per respiratory therapist. Monitor for signs of respiratory distress Thick secretions Duoneb 3ml INH Q6 and Mucomyst 4ml INH Q6H Robitussin 100mg PEG Q12H Scopolamine 1 patch TD Q3D JOO Status: Chronic (6) Sacral ulcer Assessment & Plan: Healed Cont with offloading/cushioning/turning Continue frequent turning, protective ointment and skin checks. Status: Resolved (7) History of coronary artery disease Assessment & Plan: s/p cardiac stents on 06/13/15 Cont ASA 81mg via PEG daily Cont Coreg 3.125mg PEG BID Cont Plavix 75mg PO daily Status: Acute (8) Seizures Assessment & Plan: Cont Keppra 500mg PEG BID for seizure prophylaxis Monitor for activity Status: Acute (9) Lower extremity edema Assessment & Plan: Improved Continue to monitor Status: Acute (10) Constipation Assessment & Plan: Resolved. Per the nurse, patient has not had a bowel movement in 5 days. Lactulose 30gm PEG once on 05/20/17 Status: Resolved (11) Prophylactic measure Assessment & Plan: Pepcid 20 mg PEG BID Lovenox 30mg SC daily SCDs and offloading boots continue to turn and reposition q2hrs Feeds increased to 60cc/hr. Per head of digital (05/02/17): tube feed goal: Isosource 1.5 @ 60cc/h Will continue tube feeds @ 60 unless patient cannot tolerate PICC line discontinued 05/22/17 Continue to monitor medication administrations and clinical presentation weekly labs. Status: Acute <Donnell Ying M - Last Filed: 05/27/17 15:31> Objective - Vital Signs/Intake and Output Vital Signs (last 24 hours): Temp Pulse Resp BP Pulse Ox 97.6 F 85 20 120/78 97 05/27/17 08:00 05/27/17 08:00 05/27/17 08:00 05/27/17 08:00 05/27/17 08:00 Intake and Output: 05/27/17 05/27/17 06:59 18:59 Intake Total 1200 600 Output Total 400 300 Balance 800 300 - Medications Medications: Current Medications Acetaminophen (Tylenol 650mg/20.3ml Solution Ud) 650 mg PEG Q6 PRN PRN Reason: Fever >100.4 F Last Admin: 04/07/17 02:45 Dose: 650 mg Acetylcysteine (Acetylcysteine 20%) 4 ml INH RQ8 [facility] Last Admin: 05/27/17 09:00 Dose: 4 ml Albuterol/Ipratropium (Duoneb 3 Mg/0.5 Mg (3 Ml) Ud) 3 ml INH RQ8 [facility] Last Admin: 05/27/17 09:00 Dose: 3 ml Aspirin (Aspirin Chewable) 81 mg PO DAILY [facility] Last Admin: 05/27/17 10:34 Dose: 81 mg Bethanechol Chloride (Urecholine) 50 mg PEG TID [facility] Last Admin: 05/27/17 13:43 Dose: 50 mg Carvedilol (Coreg) 3.125 mg PEG BID [facility] Last Admin: 05/27/17 10:40 Dose: 3.125 mg Clopidogrel Bisulfate (Plavix) 75 mg PO DAILY [facility] Last Admin: 05/27/17 10:34 Dose: 75 mg Enoxaparin Sodium (Lovenox) 30 mg SC DAILY [facility] Last Admin: 05/27/17 10:34 Dose: 30 mg Famotidine (Pepcid) 20 mg PEG BID [facility] Last Admin: 05/27/17 10:33 Dose: 20 mg Finasteride (Proscar) 5 mg PO DAILY [facility] Last Admin: 05/27/17 10:43 Dose: 5 mg Guaifenesin/Codeine Phosphate (Guaifenesin/Codeine) 10 ml PO DAILY [facility] Last Admin: 05/27/17 10:33 Dose: 10 ml Levetiracetam (Keppra) 500 mg PO BID [facility] Last Admin: 05/27/17 10:33 Dose: 500 mg Saccharomyces Boulardii (Florastor) 250 mg PO DAILY [facility] Last Admin: 05/27/17 10:40 Dose: 250 mg Scopolamine (Transderm-Scop) 1 patch TD Q3D [facility] Last Admin: 05/26/17 11:05 Dose: 1 patch Tamsulosin HCl (Flomax) 0.4 mg PO DAILY [facility] Last Admin: 05/27/17 10:33 Dose: 0.4 mg - Labs Labs: 05/26/17 16:35 05/26/17 09:07 PT 10.6 SECONDS (9.7-12.2) 11/24/15 14:10 INR 1.0 11/24/15 14:10 APTT 25 SECONDS (21-34) 11/24/15 14:10 Attending/Attestation - Attestation I have personally seen and examined this patient.: Yes I have fully participated in the care of the patient.: Yes I have reviewed all pertinent clinical information, including history, physical exam and plan: Yes Notes (Text): 05/27/17 15:30 Patient seen and examined at bedside No change in condition Continue current medical management Agree with the plan documented by the resident.
[2017-05-26] MEDS: Acetylcysteine 20% Inhal Soln (4ml) INH SCH ×2 (01:19→07:45)
[2017-05-26] MEDS: Albuterol-Ipratrop 3 mg / 0.5 (3 ml) UD INH SCH ×3 (01:19→16:07)
[2017-05-26 10:00] LABS: ALBUMIN 3.1 g/dL (3.5-5.0)
[2017-05-26 10:03] LABS: ALB/GLOB RATIO 0.7 (1.0-2.1); AST/SGOT 33 U/L (17-59); GFR NON-AFRICAN AMERICAN > 60
[2017-05-26 10:04] LABS: ALT/SGPT 32 U/L (21-72); BLOOD UREA NITROGEN 15 mg/dL (9-20); CALCIUM 8.4 mg/dl (8.6-10.4)
[2017-05-26] MEDS: Enoxaparin 30 mg Syringe SC SCH (11:02)
[2017-05-26] MEDS: Saccharomyces Boulardi 250 mg Cap PO SCH (11:03)
[2017-05-26] MEDS: guaiFENesin-Codeine 100-10mg/5ml Syrup (10ml) UD PO SCH (11:05)
[2017-05-26 16:40] LABS: MEAN CELL VOLUME 88.5 fL (80.0-94.0); MEAN CORPUSCULAR HEMOGLOBIN 27.9 pg (27.0-31.0); MEAN CORPUSCULAR HGB CONC 31.5 g/dL (33.0-37.0); MEAN PLATELET VOLUME 9.5 fL (7.2-11.7); RBC 3.93 Mil/uL (4.40-5.90); RED CELL DISTRIBUTION WIDTH 16.5 % (11.5-14.5); WHITE BLOOD COUNT 11.2 K/uL (4.8-10.8)
[2017-05-27] MEDS: Acetylcysteine 20% Inhal Soln (4ml) INH SCH ×4 (00:57→23:50)
[2017-05-27] MEDS: Albuterol-Ipratrop 3 mg / 0.5 (3 ml) UD INH SCH ×4 (00:57→23:50)
[2017-05-27] MEDS: guaiFENesin-Codeine 100-10mg/5ml Syrup (10ml) UD PO SCH (10:33)
[2017-05-27] MEDS: Enoxaparin 30 mg Syringe SC SCH (10:34)
[2017-05-27] MEDS: Saccharomyces Boulardi 250 mg Cap PO SCH (10:40)
--- NOTE | 2017-05-27 18:02 | CP.PCM.PN ---
<Vesna Turpin - Last Filed: 05/27/17 17:59> Subjective - Date & Time of Evaluation Date of Evaluation: 05/27/17 Time of Evaluation: 17:59 - Subjective Subjective: Medicine Progress Note- Dr. Ying Service Patient was seen and examined at bedside in no acute distress. Patient is unable to answer questions or review of systems due to an anoxic brain injury (). Objective - Vital Signs/Intake and Output Vital Signs (last 24 hours): Temp Pulse Resp BP Pulse Ox 98.1 F 78 20 118/83 99 05/27/17 16:00 05/27/17 16:00 05/27/17 16:00 05/27/17 16:00 05/27/17 16:00 Intake and Output: 05/27/17 05/27/17 06:59 18:59 Intake Total 1200 600 Output Total 400 300 Balance 800 300 - Medications Medications: Current Medications Acetaminophen (Tylenol 650mg/20.3ml Solution Ud) 650 mg PEG Q6 PRN PRN Reason: Fever >100.4 F Last Admin: 04/07/17 02:45 Dose: 650 mg Acetylcysteine (Acetylcysteine 20%) 4 ml INH RQ8 [facility] Last Admin: 05/27/17 16:10 Dose: 4 ml Albuterol/Ipratropium (Duoneb 3 Mg/0.5 Mg (3 Ml) Ud) 3 ml INH RQ8 [facility] Last Admin: 05/27/17 16:10 Dose: 3 ml Aspirin (Aspirin Chewable) 81 mg PO DAILY [facility] Last Admin: 05/27/17 10:34 Dose: 81 mg Bethanechol Chloride (Urecholine) 50 mg PEG TID [facility] Last Admin: 05/27/17 17:16 Dose: 50 mg Carvedilol (Coreg) 3.125 mg PEG BID [facility] Last Admin: 05/27/17 17:16 Dose: 3.125 mg Clopidogrel Bisulfate (Plavix) 75 mg PO DAILY [facility] Last Admin: 05/27/17 10:34 Dose: 75 mg Enoxaparin Sodium (Lovenox) 30 mg SC DAILY [facility] Last Admin: 05/27/17 10:34 Dose: 30 mg Famotidine (Pepcid) 20 mg PEG BID [facility] Last Admin: 05/27/17 17:16 Dose: 20 mg Finasteride (Proscar) 5 mg PO DAILY [facility] Last Admin: 05/27/17 10:43 Dose: 5 mg Guaifenesin/Codeine Phosphate (Guaifenesin/Codeine) 10 ml PO DAILY [facility] Last Admin: 05/27/17 10:33 Dose: 10 ml Levetiracetam (Keppra) 500 mg PO BID [facility] Last Admin: 05/27/17 17:15 Dose: 500 mg Saccharomyces Boulardii (Florastor) 250 mg PO DAILY [facility] Last Admin: 05/27/17 10:40 Dose: 250 mg Scopolamine (Transderm-Scop) 1 patch TD Q3D [facility] Last Admin: 05/26/17 11:05 Dose: 1 patch Tamsulosin HCl (Flomax) 0.4 mg PO DAILY [facility] Last Admin: 05/27/17 10:33 Dose: 0.4 mg - Labs Labs: 05/26/17 16:35 05/26/17 09:07 PT 10.6 SECONDS (9.7-12.2) 11/24/15 14:10 INR 1.0 11/24/15 14:10 APTT 25 SECONDS (21-34) 11/24/15 14:10 - Constitutional Appears: No Acute Distress - Head Exam Head Exam: NORMAL INSPECTION, NORMOCEPHALIC - Eye Exam Eye Exam: absent: Normal appearance - ENT Exam ENT Exam: Mucous Membranes Moist - Neck Exam Neck Exam: absent: Full ROM - Respiratory Exam Respiratory Exam: Rhonchi, Wheezes. absent: Clear to Ausculation Bilateral, NORMAL BREATHING PATTERN - Cardiovascular Exam Cardiovascular Exam: +S1, +S2 - GI/Abdominal Exam GI & Abdominal Exam: Soft, Normal Bowel Sounds - Extremities Exam Extremities Exam: Pedal Edema - Neurological Exam Neurological Exam: Altered. absent: Alert, Awake - Psychiatric Exam Psychiatric exam: Flat Affect. absent: Normal Affect, Normal Mood - Skin Skin Exam: Dry, Intact, Normal Color, Warm Assessment and Plan (1) Anoxic encephalopathy Assessment & Plan: s/p cardiac arrest in 05/2015 no acute changes Pt has non spontaneous movements. continue current management. Continue tube feeds- at goal of 60 Florastor 250mg PO TID via PEG Status: Chronic (2) UTI (urinary tract infection) Assessment & Plan: resolved patient afebrile, WBC 10.5 Completed course of Amikacin and Meropenem. amikacin discontinued on 04/18 ( total 10), Meropenem (04/13) total 7 days Urine culture (04/06/17): + Proteus Mirabilis [place] catheter in place Ordered- new condom catheter 05/22/17 Tylenol 650mg po q6 PEG PRN Will follow up with Thursday WEEKLY labs Status: Resolved (3) Urinary retention Assessment & Plan: Take note condom cath not always securely in place so Is and Os are approximate as patient does wet bed Ordered- new condom catheter on 05/22/17 Flomax 0.4mg PEG daily Proscar 5mg PEG daily continue Bethanecol 50mg PEG TID- started after persistent retention and found to be effective. monitor I's and O's Check bladder scan for residual urine three times weekly Status: Acute (4) Watery stools Assessment & Plan: Recent completion of Merrem, Amikacin C. diff negative (04/26/17) Stool leukocytes negative (04/26/17) stool culture (04/26/17) negative Status: Resolved (5) Respiratory failure Assessment & Plan: Trach in place, continue daily monitoring for secretions. No change in management at this time. Continue with aggressive suctioning multiple times a day per respiratory therapist. Monitor for signs of respiratory distress Thick secretions Duoneb 3ml INH Q6 and Mucomyst 4ml INH Q6H Robitussin 100mg PEG Q12H Scopolamine 1 patch TD Q3D JOO Status: Chronic (6) Sacral ulcer Assessment & Plan: Healed Cont with offloading/cushioning/turning Continue frequent turning, protective ointment and skin checks. Status: Resolved (7) History of coronary artery disease Assessment & Plan: s/p cardiac stents on 06/13/15 Cont ASA 81mg via PEG daily Cont Coreg 3.125mg PEG BID Cont Plavix 75mg PO daily Status: Acute (8) Seizures Assessment & Plan: Cont Keppra 500mg PEG BID for seizure prophylaxis Monitor for activity Status: Acute (9) Lower extremity edema Assessment & Plan: Improved Continue to monitor Status: Acute (10) Constipation Assessment & Plan: Resolved. Per the nurse, patient has not had a bowel movement in 5 days. Lactulose 30gm PEG once on 05/20/17 Status: Resolved (11) Prophylactic measure Assessment & Plan: Pepcid 20 mg PEG BID Lovenox 30mg SC daily SCDs and offloading boots continue to turn and reposition q2hrs Feeds increased to 60cc/hr. Per shelter case manager (05/02/17): tube feed goal: Isosource 1.5 @ 60cc/h Will continue tube feeds @ 60 unless patient cannot tolerate PICC line discontinued 05/22/17 Continue to monitor medication administrations and clinical presentation weekly labs. Status: Acute <Donnell Ying M - Last Filed: 05/28/17 13:28> Objective - Vital Signs/Intake and Output Vital Signs (last 24 hours): Temp Pulse Resp BP Pulse Ox 98 F 82 18 114/75 98 05/28/17 00:17 05/28/17 01:20 05/28/17 01:20 05/28/17 01:20 05/28/17 01:20 Intake and Output: 05/28/17 05/28/17 06:59 18:59 Intake Total 1200 Output Total 1000 Balance 200 - Medications Medications: Current Medications Acetaminophen (Tylenol 650mg/20.3ml Solution Ud) 650 mg PEG Q6 PRN PRN Reason: Fever >100.4 F Last Admin: 04/07/17 02:45 Dose: 650 mg Acetylcysteine (Acetylcysteine 20%) 4 ml INH RQ8 [facility] Last Admin: 05/28/17 08:11 Dose: 4 ml Albuterol/Ipratropium (Duoneb 3 Mg/0.5 Mg (3 Ml) Ud) 3 ml INH RQ8 [facility] Last Admin: 05/28/17 08:10 Dose: 3 ml Aspirin (Aspirin Chewable) 81 mg PO DAILY [facility] Last Admin: 05/28/17 09:38 Dose: 81 mg Bethanechol Chloride (Urecholine) 50 mg PEG TID [facility] Last Admin: 05/28/17 09:39 Dose: 50 mg Carvedilol (Coreg) 3.125 mg PEG BID [facility] Last Admin: 05/28/17 09:39 Dose: 3.125 mg Clopidogrel Bisulfate (Plavix) 75 mg PO DAILY [facility] Last Admin: 05/28/17 09:38 Dose: 75 mg Enoxaparin Sodium (Lovenox) 30 mg SC DAILY [facility] Last Admin: 05/28/17 09:56 Dose: 30 mg Famotidine (Pepcid) 20 mg PEG BID [facility] Last Admin: 05/28/17 09:38 Dose: 20 mg Finasteride (Proscar) 5 mg PO DAILY [facility] Last Admin: 05/28/17 09:39 Dose: 5 mg Guaifenesin/Codeine Phosphate (Guaifenesin/Codeine) 10 ml PO DAILY [facility] Last Admin: 05/28/17 09:38 Dose: 10 ml Levetiracetam (Keppra) 500 mg PO BID [facility] Last Admin: 05/28/17 09:39 Dose: 500 mg Saccharomyces Boulardii (Florastor) 250 mg PO DAILY [facility] Last Admin: 05/28/17 09:38 Dose: 250 mg Scopolamine (Transderm-Scop) 1 patch TD Q3D [facility] Last Admin: 05/26/17 11:05 Dose: 1 patch Tamsulosin HCl (Flomax) 0.4 mg PO DAILY [facility] Last Admin: 05/28/17 09:38 Dose: 0.4 mg - Labs Labs: 05/28/17 07:51 05/26/17 09:07 PT 10.6 SECONDS (9.7-12.2) 11/24/15 14:10 INR 1.0 11/24/15 14:10 APTT 25 SECONDS (21-34) 11/24/15 14:10 Attending/Attestation - Attestation I have personally seen and examined this patient.: Yes I have fully participated in the care of the patient.: Yes I have reviewed all pertinent clinical information, including history, physical exam and plan: Yes Notes (Text): 05/28/17 13:28 Patient was seen and examined at bedside with the resident Continue current medical management Agree with the assessment and plan by the resident.
[2017-05-28 07:56] LABS: BASO # 0.1 K/uL (0.0-0.2); BASO % 0.7 % (0.0-2.0); EOS # 0.5 K/uL (0.0-0.7); EOS % 4.1 % (0.0-4.0); LYMPH # 2.8 K/uL (1.0-4.3); MEAN CELL VOLUME 88.2 fL (80.0-94.0); MEAN CORPUSCULAR HEMOGLOBIN 27.8 pg (27.0-31.0); MEAN CORPUSCULAR HGB CONC 31.6 g/dL (33.0-37.0); MEAN PLATELET VOLUME 9.4 fL (7.2-11.7); MONO # 1.2 K/uL (0.0-0.8); MONO % 10.1 % (0.0-10.0); NEUT # 7.6 K/uL (1.8-7.0); NEUT % 62.1 % (50.0-75.0); NRBC % 0.1 % (0.0-2.0); RBC 3.96 Mil/uL (4.40-5.90); RED CELL DISTRIBUTION WIDTH 16.7 % (11.5-14.5); WHITE BLOOD COUNT 12.2 K/uL (4.8-10.8)
[2017-05-28] MEDS: Albuterol-Ipratrop 3 mg / 0.5 (3 ml) UD INH SCH ×2 (08:10→16:28)
[2017-05-28] MEDS: Acetylcysteine 20% Inhal Soln (4ml) INH SCH ×2 (08:11→16:28)
[2017-05-28] MEDS: Saccharomyces Boulardi 250 mg Cap PO SCH (09:38)
[2017-05-28] MEDS: guaiFENesin-Codeine 100-10mg/5ml Syrup (10ml) UD PO SCH (09:38)
[2017-05-28] MEDS: Enoxaparin 30 mg Syringe SC SCH (09:56)
--- NOTE | 2017-05-28 13:01 | RAD ---
Chest x-ray single frontal view History: Pneumonia. Comparison: 04/15/2017 Findings: Patient is rotated in a semi erect position. Tracheostomy tube projects over the right aspect of the trachea, likely related to patient positioning. Linear increased consolidative changes in the right midlung zone and left lung base which may represent atelectasis and or infiltrate. Clinical correlation. Question trace left pleural effusion. Moderate venous congestion. Cardiomegaly. Degenerative changes in the spine and shoulders. Impression: Patient is rotated in a semi erect position. Tracheostomy tube projects over the right aspect of the trachea, likely related to patient positioning. Linear increased consolidative changes in the right midlung zone and left lung base which may represent atelectasis and or infiltrate. Clinical correlation. Question trace left pleural effusion. Moderate venous congestion. Cardiomegaly. Degenerative changes in the spine and shoulders.
--- NOTE | 2017-05-28 19:22 | CP.PCM.PN ---
<Vesna Turpin - Last Filed: 05/28/17 19:19> Subjective - Date & Time of Evaluation Date of Evaluation: 05/28/17 Time of Evaluation: 19:19 - Subjective Subjective: Medicine Note For Dr. Ying, Patient was seen and examined at bedside. Resting comfortably in bed. Patient is unable to answer questions or review of systems due to an anoxic brain injury (05/2015). Objective - Vital Signs/Intake and Output Vital Signs (last 24 hours): Temp Pulse Resp BP Pulse Ox 98.7 F 82 20 114/72 96 05/28/17 16:00 05/28/17 16:00 05/28/17 16:00 05/28/17 16:00 05/28/17 16:00 Intake and Output: 05/28/17 05/29/17 18:59 06:59 Intake Total 600 Output Total 100 Balance 500 - Medications Medications: Current Medications Acetaminophen (Tylenol 650mg/20.3ml Solution Ud) 650 mg PEG Q6 PRN PRN Reason: Fever >100.4 F Last Admin: 04/07/17 02:45 Dose: 650 mg Acetylcysteine (Acetylcysteine 20%) 4 ml INH RQ8 [facility] Last Admin: 05/28/17 16:28 Dose: 4 ml Albuterol/Ipratropium (Duoneb 3 Mg/0.5 Mg (3 Ml) Ud) 3 ml INH RQ8 [facility] Last Admin: 05/28/17 16:28 Dose: 3 ml Aspirin (Aspirin Chewable) 81 mg PO DAILY [facility] Last Admin: 05/28/17 09:38 Dose: 81 mg Bethanechol Chloride (Urecholine) 50 mg PEG TID [facility] Last Admin: 05/28/17 18:43 Dose: 50 mg Carvedilol (Coreg) 3.125 mg PEG BID [facility] Last Admin: 05/28/17 18:43 Dose: 3.125 mg Clopidogrel Bisulfate (Plavix) 75 mg PO DAILY [facility] Last Admin: 05/28/17 09:38 Dose: 75 mg Enoxaparin Sodium (Lovenox) 30 mg SC DAILY [facility] Last Admin: 05/28/17 09:56 Dose: 30 mg Famotidine (Pepcid) 20 mg PEG BID [facility] Last Admin: 05/28/17 18:42 Dose: 20 mg Finasteride (Proscar) 5 mg PO DAILY [facility] Last Admin: 05/28/17 09:39 Dose: 5 mg Guaifenesin/Codeine Phosphate (Guaifenesin/Codeine) 10 ml PO DAILY [facility] Last Admin: 05/28/17 09:38 Dose: 10 ml Levetiracetam (Keppra) 500 mg PO BID [facility] Last Admin: 05/28/17 18:42 Dose: 500 mg Saccharomyces Boulardii (Florastor) 250 mg PO DAILY [facility] Last Admin: 05/28/17 09:38 Dose: 250 mg Scopolamine (Transderm-Scop) 1 patch TD Q3D [facility] Last Admin: 05/26/17 11:05 Dose: 1 patch Tamsulosin HCl (Flomax) 0.4 mg PO DAILY [facility] Last Admin: 05/28/17 09:38 Dose: 0.4 mg - Labs Labs: 05/28/17 07:51 05/26/17 09:07 PT 10.6 SECONDS (9.7-12.2) 11/24/15 14:10 INR 1.0 11/24/15 14:10 APTT 25 SECONDS (21-34) 11/24/15 14:10 - Constitutional Appears: No Acute Distress - Head Exam Head Exam: NORMAL INSPECTION, NORMOCEPHALIC - Eye Exam Eye Exam: Normal appearance - ENT Exam ENT Exam: Mucous Membranes Moist - Neck Exam Neck Exam: absent: Normal Inspection (trach in place) - Respiratory Exam Respiratory Exam: Rhonchi, Wheezes. absent: NORMAL BREATHING PATTERN - Cardiovascular Exam Cardiovascular Exam: +S1, +S2 - GI/Abdominal Exam GI & Abdominal Exam: Soft, Normal Bowel Sounds - Extremities Exam Extremities Exam: Pedal Edema. absent: Full ROM - Neurological Exam Neurological Exam: Altered. absent: Alert, Awake, Oriented x3 - Psychiatric Exam Psychiatric exam: Flat Affect. absent: Normal Affect, Normal Mood - Skin Skin Exam: Dry, Intact, Normal Color, Warm Assessment and Plan (1) Anoxic encephalopathy Assessment & Plan: s/p cardiac arrest in 05/2015 no acute changes Pt has non spontaneous movements. continue current management. Continue tube feeds- at goal of 60 Florastor 250mg PO TID via PEG Status: Chronic (2) UTI (urinary tract infection) Assessment & Plan: patient afebrile Completed course of Amikacin and Meropenem. amikacin discontinued on 04/18 ( total 10), Meropenem (04/13) total 7 days Urine culture (04/06/17): + Proteus Mirabilis [place] catheter in place Ordered- new condom catheter 05/22/17 Tylenol 650mg po q6 PEG PRN UA and Urine Cx ordered on 05/28/17 elevated WBC 12.2 Status: Resolved (3) Urinary retention Assessment & Plan: Take note condom cath not always securely in place so Is and Os are approximate as patient does wet bed Ordered- new condom catheter on 05/22/17 Flomax 0.4mg PEG daily Proscar 5mg PEG daily continue Bethanecol 50mg PEG TID- started after persistent retention and found to be effective. monitor I's and O's Check bladder scan for residual urine three times weekly Status: Acute (4) Watery stools Assessment & Plan: Recent completion of Merrem, Amikacin C. diff negative (04/26/17) Stool leukocytes negative (04/26/17) stool culture (04/26/17) negative Status: Resolved (5) Respiratory failure Assessment & Plan: Trach in place, continue daily monitoring for secretions. No change in management at this time. Continue with aggressive suctioning multiple times a day per respiratory therapist. Monitor for signs of respiratory distress Thick secretions Duoneb 3ml INH Q6 and Mucomyst 4ml INH Q6H Robitussin 100mg PEG Q12H Scopolamine 1 patch TD Q3D JOO Repeat CXR on 05/28/17: linear increased consolidative changes in the right midlung zone and left lung base which may represent atelectasis and/or infiltrate. Question trace left pleural effusion. moderate venous congestion. cardiomegaly. degenerative changes in the spine and shoulders Status: Chronic (6) Sacral ulcer Assessment & Plan: Healed Cont with offloading/cushioning/turning Continue frequent turning, protective ointment and skin checks. Status: Resolved (7) History of coronary artery disease Assessment & Plan: s/p cardiac stents on 06/13/15 Cont ASA 81mg via PEG daily Cont Coreg 3.125mg PEG BID Cont Plavix 75mg PO daily Status: Acute (8) Seizures Assessment & Plan: Cont Keppra 500mg PEG BID for seizure prophylaxis Monitor for activity Status: Acute (9) Lower extremity edema Assessment & Plan: Improved Continue to monitor Status: Acute (10) Constipation Assessment & Plan: Resolved. Per the nurse, patient has not had a bowel movement in 5 days. Lactulose 30gm PEG once on 05/20/17 Status: Resolved (11) Prophylactic measure Assessment & Plan: Pepcid 20 mg PEG BID Lovenox 30mg SC daily SCDs and offloading boots continue to turn and reposition q2hrs Feeds increased to 60cc/hr. Per lifeline representatives (05/02/17): tube feed goal: Isosource 1.5 @ 60cc/h Will continue tube feeds @ 60 unless patient cannot tolerate PICC line discontinued 05/22/17 Continue to monitor medication administrations and clinical presentation weekly labs. Status: Acute <Donnell Ying M - Last Filed: 05/29/17 08:48> Objective - Vital Signs/Intake and Output Vital Signs (last 24 hours): Temp Pulse Resp BP Pulse Ox 97.8 F 78 20 101/67 98 05/29/17 00:00 05/29/17 00:00 05/29/17 00:00 05/29/17 00:00 05/29/17 00:00 Intake and Output: 05/29/17 05/29/17 06:59 18:59 Intake Total 1250 Output Total 750 Balance 500 - Medications Medications: Current Medications Acetaminophen (Tylenol 650mg/20.3ml Solution Ud) 650 mg PEG Q6 PRN PRN Reason: Fever >100.4 F Last Admin: 04/07/17 02:45 Dose: 650 mg Acetylcysteine (Acetylcysteine 20%) 4 ml INH RQ8 [facility] Last Admin: 05/29/17 07:48 Dose: 4 ml Albuterol/Ipratropium (Duoneb 3 Mg/0.5 Mg (3 Ml) Ud) 3 ml INH RQ8 [facility] Last Admin: 05/29/17 07:48 Dose: 3 ml Aspirin (Aspirin Chewable) 81 mg PO DAILY [facility] Last Admin: 05/28/17 09:38 Dose: 81 mg Bethanechol Chloride (Urecholine) 50 mg PEG TID [facility] Last Admin: 05/28/17 18:43 Dose: 50 mg Carvedilol (Coreg) 3.125 mg PEG BID [facility] Last Admin: 05/28/17 18:43 Dose: 3.125 mg Clopidogrel Bisulfate (Plavix) 75 mg PO DAILY [facility] Last Admin: 05/28/17 09:38 Dose: 75 mg Enoxaparin Sodium (Lovenox) 30 mg SC DAILY [facility] Last Admin: 05/28/17 09:56 Dose: 30 mg Famotidine (Pepcid) 20 mg PEG BID [facility] Last Admin: 05/28/17 18:42 Dose: 20 mg Finasteride (Proscar) 5 mg PO DAILY [facility] Last Admin: 05/28/17 09:39 Dose: 5 mg Furosemide (Lasix) 40 mg PO ONCE ONE Stop: 05/29/17 09:01 Guaifenesin/Codeine Phosphate (Guaifenesin/Codeine) 10 ml PO DAILY [facility] Last Admin: 05/28/17 09:38 Dose: 10 ml Levetiracetam (Keppra) 500 mg PO BID [facility] Last Admin: 05/28/17 18:42 Dose: 500 mg Saccharomyces Boulardii (Florastor) 250 mg PO DAILY [facility] Last Admin: 05/28/17 09:38 Dose: 250 mg Scopolamine (Transderm-Scop) 1 patch TD Q3D [facility] Last Admin: 05/26/17 11:05 Dose: 1 patch Tamsulosin HCl (Flomax) 0.4 mg PO DAILY [facility] Last Admin: 05/28/17 09:38 Dose: 0.4 mg - Labs Labs: 05/29/17 06:49 05/26/17 09:07 PT 10.6 SECONDS (9.7-12.2) 11/24/15 14:10 INR 1.0 11/24/15 14:10 APTT 25 SECONDS (21-34) 11/24/15 14:10 Attending/Attestation - Attestation I have personally seen and examined this patient.: Yes I have fully participated in the care of the patient.: Yes I have reviewed all pertinent clinical information, including history, physical exam and plan: Yes Notes (Text): 05/29/17 08:48 Patient was seen and examined at bedside with the resident Follow-up urinalysis and urine culture and chest x-ray Discussed the plan of care with the resident and agree with the assessment plan by the resident.
[2017-05-28 19:36] LABS: SQUAMOUS EPITHIAL 6 /hpf (0-5); URINE BACTERIA OCC (<OCC); URINE BILIRUBIN NEGATIVE (NEGATIVE); URINE BLOOD NEGATIVE (NEGATIVE); URINE CLARITY Hazy (Clear); URINE COLOR Yellow (YELLOW); URINE GLUCOSE (UA) NORMAL (Normal); URINE LEUKOCYTE ESTERASE TRACE Leu/uL (Negative); URINE PROTEIN NEGATIVE (NEGATIVE); URINE UROBILINOGEN NORMAL mg/dL (0.2-1.0)
[2017-05-29] MEDS: Albuterol-Ipratrop 3 mg / 0.5 (3 ml) UD INH SCH ×4 (00:53→23:48)
[2017-05-29] MEDS: Acetylcysteine 20% Inhal Soln (4ml) INH SCH ×4 (00:53→23:48)
[2017-05-29 07:08] LABS: BASO % 0.4 % (0.0-2.0); EOS # 0.5 K/uL (0.0-0.7); EOS % 5.4 % (0.0-4.0); HEMOGLOBIN 10.9 g/dL (12.0-18.0); LYMPH % 21.8 % (20.0-40.0); MEAN CELL VOLUME 87.9 fL (80.0-94.0); MEAN CORPUSCULAR HEMOGLOBIN 28.6 pg (27.0-31.0); MEAN CORPUSCULAR HGB CONC 32.5 g/dL (33.0-37.0); MEAN PLATELET VOLUME 9.7 fL (7.2-11.7); MONO % 10.3 % (0.0-10.0); NEUT # 5.7 K/uL (1.8-7.0); NEUT % 62.1 % (50.0-75.0); RBC 3.83 Mil/uL (4.40-5.90); RED CELL DISTRIBUTION WIDTH 16.8 % (11.5-14.5); WHITE BLOOD COUNT 9.2 K/uL (4.8-10.8)
[2017-05-29] MEDS: Enoxaparin 30 mg Syringe SC SCH (09:58)
[2017-05-29] MEDS: guaiFENesin-Codeine 100-10mg/5ml Syrup (10ml) UD PO SCH (09:59)
[2017-05-29] MEDS: Saccharomyces Boulardi 250 mg Cap PO SCH (10:00)
--- NOTE | 2017-05-29 14:59 | CP.PCM.PN ---
<CammyIram - Last Filed: 05/29/17 14:56> Subjective - Date & Time of Evaluation Date of Evaluation: 05/29/17 Time of Evaluation: 14:56 - Subjective Subjective: Hospitalists progress note by PGY2 Patient is seen and examined at bedside. No acute events overnight. Trach in place, condom catheter in place. Patient does not respond to painful stimuli. ROS are unobtainable due to anoxic brain injury. Objective - Vital Signs/Intake and Output Vital Signs (last 24 hours): Temp Pulse Resp BP Pulse Ox 98.1 F 79 20 127/87 99 05/29/17 09:24 05/29/17 09:24 05/29/17 09:24 05/29/17 09:59 05/29/17 09:24 Intake and Output: 05/29/17 05/29/17 06:59 18:59 Intake Total 1250 600 Output Total 750 Balance 500 600 - Medications Medications: Current Medications Acetaminophen (Tylenol 650mg/20.3ml Solution Ud) 650 mg PEG Q6 PRN PRN Reason: Fever >100.4 F Last Admin: 04/07/17 02:45 Dose: 650 mg Acetylcysteine (Acetylcysteine 20%) 4 ml INH RQ8 [facility] Last Admin: 05/29/17 07:48 Dose: 4 ml Albuterol/Ipratropium (Duoneb 3 Mg/0.5 Mg (3 Ml) Ud) 3 ml INH RQ8 [facility] Last Admin: 05/29/17 07:48 Dose: 3 ml Aspirin (Aspirin Chewable) 81 mg PO DAILY [facility] Last Admin: 05/29/17 10:00 Dose: 81 mg Bethanechol Chloride (Urecholine) 50 mg PEG TID [facility] Last Admin: 05/29/17 13:46 Dose: 50 mg Carvedilol (Coreg) 3.125 mg PEG BID [facility] Last Admin: 05/29/17 10:00 Dose: 3.125 mg Clopidogrel Bisulfate (Plavix) 75 mg PO DAILY [facility] Last Admin: 05/29/17 09:59 Dose: 75 mg Enoxaparin Sodium (Lovenox) 30 mg SC DAILY [facility] Last Admin: 05/29/17 09:58 Dose: 30 mg Famotidine (Pepcid) 20 mg PEG BID [facility] Last Admin: 05/29/17 10:00 Dose: 20 mg Finasteride (Proscar) 5 mg PO DAILY [facility] Last Admin: 05/29/17 09:59 Dose: 5 mg Guaifenesin/Codeine Phosphate (Guaifenesin/Codeine) 10 ml PO DAILY [facility] Last Admin: 05/29/17 09:59 Dose: 10 ml Levetiracetam (Keppra) 500 mg PO BID [facility] Last Admin: 05/29/17 09:59 Dose: 500 mg Saccharomyces Boulardii (Florastor) 250 mg PO DAILY [facility] Last Admin: 05/29/17 10:00 Dose: 250 mg Scopolamine (Transderm-Scop) 1 patch TD Q3D [facility] Last Admin: 05/29/17 10:00 Dose: 1 patch Tamsulosin HCl (Flomax) 0.4 mg PO DAILY [facility] Last Admin: 05/29/17 10:00 Dose: 0.4 mg - Labs Labs: 05/29/17 06:49 05/26/17 09:07 PT 10.6 SECONDS (9.7-12.2) 11/24/15 14:10 INR 1.0 11/24/15 14:10 APTT 25 SECONDS (21-34) 11/24/15 14:10 - Constitutional Appears: No Acute Distress - Respiratory Exam Respiratory Exam: Rhonchi. absent: Rales, Wheezes, Respiratory Distress - Cardiovascular Exam Cardiovascular Exam: REGULAR RHYTHM, +S1, +S2 - GI/Abdominal Exam GI & Abdominal Exam: Soft, Normal Bowel Sounds - Extremities Exam Extremities Exam: Pedal Edema. absent: Calf Tenderness, Tenderness - Neurological Exam Neurological Exam: Awake. absent: Alert, CN II-XII Intact, Oriented x3 - Psychiatric Exam Psychiatric exam: absent: Normal Affect, Normal Mood - Skin Skin Exam: Intact, Normal Color. absent: Dry Assessment and Plan - Assessment and Plan (Free Text) Assessment: (1) Anoxic encephalopathy Assessment & Plan: s/p cardiac arrest in 05/2015 no acute changes Pt has non spontaneous movements. continue current management. Continue tube feeds- at goal of 60 Florastor 250mg PO TID via PEG (2) UTI (urinary tract infection) patient afebrile Completed course of Amikacin and Meropenem. amikacin discontinued on 04/18 ( total 10), Meropenem (04/13) total 7 days Urine culture (04/06/17): + Proteus Mirabilis Urine [place] catheter in place Ordered- new condom catheter 05/22/17 Tylenol 650mg po q6 PEG PRN UA and Urine Cx ordered on 05/28/17 showed gram negative rods WBC count trending down (3) Urinary retention Assessment & Plan: Take note condom cath not always securely in place so Is and Os are approximate as patient does wet bed Ordered- new condom catheter on 05/22/17 Flomax 0.4mg PEG daily Proscar 5mg PEG daily continue Bethanecol 50mg PEG TID- started after persistent retention and found to be effective. monitor I's and O's Check bladder scan for residual urine three times weekly (4) Watery stools Assessment & Plan: Recent completion of Merrem, Amikacin C. diff negative (04/26/17) Stool leukocytes negative (04/26/17) stool culture (04/26/17) negative (5) Respiratory failure Assessment & Plan: Trach in place, continue daily monitoring for secretions. No change in management at this time. Continue with aggressive suctioning multiple times a day per respiratory therapist. Monitor for signs of respiratory distress Thick secretions Duoneb 3ml INH Q6 and Mucomyst 4ml INH Q6H Robitussin 100mg PEG Q12H Scopolamine 1 patch TD Q3D JOO Repeat CXR on 05/28/17: linear increased consolidative changes in the right mid- lung zone and left lung base which may represent atelectasis and/or infiltrate. Question trace left pleural effusion. moderate venous congestion. cardiomegaly. degenerative changes in the spine and shoulders (6) Sacral ulcer Assessment & Plan: Healed Cont with offloading/cushioning/turning Continue frequent turning, protective ointment and skin checks. (7) History of coronary artery disease Assessment & Plan: s/p cardiac stents on 06/13/15 Cont ASA 81mg via PEG daily Cont Coreg 3.125mg PEG BID Cont Plavix 75mg PO daily (8) Seizures Assessment & Plan: Cont Keppra 500mg PEG BID for seizure prophylaxis Monitor for activity (9) Lower extremity edema Assessment & Plan: Improved Continue to monitor (10) Constipation Assessment & Plan: Resolved. Per the nurse, patient has not had a bowel movement in 5 days. Lactulose 30gm PEG once on 05/20/17 (11) Prophylactic measure Assessment & Plan: Pepcid 20 mg PEG BID Lovenox 30mg SC daily SCDs and offloading boots continue to turn and reposition q2hrs Feeds increased to 60cc/hr. Per port engineer (05/02/17): tube feed goal: Isosource 1.5 @ 60cc/h Will continue tube feeds @ 60 unless patient cannot tolerate PICC line discontinued 05/22/17 Continue to monitor medication administrations and clinical presentation weekly labs. <Donnell Ying - Last Filed: 05/29/17 17:53> Objective - Vital Signs/Intake and Output Vital Signs (last 24 hours): Temp Pulse Resp BP Pulse Ox 98.2 F 81 20 113/76 100 05/29/17 15:15 05/29/17 15:15 05/29/17 15:15 05/29/17 15:15 05/29/17 15:15 Intake and Output: 05/29/17 05/29/17 06:59 18:59 Intake Total 1250 600 Output Total 750 Balance 500 600 - Medications Medications: Current Medications Acetaminophen (Tylenol 650mg/20.3ml Solution Ud) 650 mg PEG Q6 PRN PRN Reason: Fever >100.4 F Last Admin: 04/07/17 02:45 Dose: 650 mg Acetylcysteine (Acetylcysteine 20%) 4 ml INH RQ8 [facility] Last Admin: 05/29/17 16:17 Dose: 4 ml Albuterol/Ipratropium (Duoneb 3 Mg/0.5 Mg (3 Ml) Ud) 3 ml INH RQ8 [facility] Last Admin: 05/29/17 16:17 Dose: 3 ml Aspirin (Aspirin Chewable) 81 mg PO DAILY [facility] Last Admin: 05/29/17 10:00 Dose: 81 mg Bethanechol Chloride (Urecholine) 50 mg PEG TID [facility] Last Admin: 05/29/17 13:46 Dose: 50 mg Carvedilol (Coreg) 3.125 mg PEG BID [facility] Last Admin: 05/29/17 10:00 Dose: 3.125 mg Clopidogrel Bisulfate (Plavix) 75 mg PO DAILY [facility] Last Admin: 05/29/17 09:59 Dose: 75 mg Enoxaparin Sodium (Lovenox) 30 mg SC DAILY [facility] Last Admin: 05/29/17 09:58 Dose: 30 mg Famotidine (Pepcid) 20 mg PEG BID [facility] Last Admin: 05/29/17 10:00 Dose: 20 mg Finasteride (Proscar) 5 mg PO DAILY [facility] Last Admin: 05/29/17 09:59 Dose: 5 mg Guaifenesin/Codeine Phosphate (Guaifenesin/Codeine) 10 ml PO DAILY [facility] Last Admin: 05/29/17 09:59 Dose: 10 ml Levetiracetam (Keppra) 500 mg PO BID [facility] Last Admin: 05/29/17 09:59 Dose: 500 mg Saccharomyces Boulardii (Florastor) 250 mg PO DAILY [facility] Last Admin: 05/29/17 10:00 Dose: 250 mg Scopolamine (Transderm-Scop) 1 patch TD Q3D [facility] Last Admin: 05/29/17 10:00 Dose: 1 patch Tamsulosin HCl (Flomax) 0.4 mg PO DAILY [facility] Last Admin: 05/29/17 10:00 Dose: 0.4 mg - Labs Labs: 05/29/17 06:49 05/26/17 09:07 PT 10.6 SECONDS (9.7-12.2) 11/24/15 14:10 INR 1.0 11/24/15 14:10 APTT 25 SECONDS (21-34) 11/24/15 14:10 Attending/Attestation - Attestation I have personally seen and examined this patient.: Yes I have fully participated in the care of the patient.: Yes I have reviewed all pertinent clinical information, including history, physical exam and plan: Yes Notes (Text): 05/29/17 17:53 Patient was seen and examined at bedside with the resident Continue current medical management Discussed the plan of care with the resident with the assessment and plan.
--- NOTE | 2017-05-30 00:19 | CP.PCM.PN ---
<Vesna Turpin - Last Filed: 05/30/17 00:13> Subjective - Date & Time of Evaluation Date of Evaluation: 05/30/17 Time of Evaluation: 00:13 - Subjective Subjective: Medicine Progress Note: Dr. Dye Service Patient was seen and examined at bedside in no acute distress. No acute events overnights. Patient is unresponsive due to anoxic brain injury in 2015. Objective - Vital Signs/Intake and Output Vital Signs (last 24 hours): Temp Pulse Resp BP Pulse Ox 98.5 F 85 20 128/86 99 05/29/17 23:48 05/29/17 23:48 05/29/17 23:48 05/29/17 23:48 05/29/17 23:48 Intake and Output: 05/29/17 05/30/17 18:59 06:59 Intake Total 600 600 Balance 600 600 - Medications Medications: Current Medications Acetaminophen (Tylenol 650mg/20.3ml Solution Ud) 650 mg PEG Q6 PRN PRN Reason: Fever >100.4 F Last Admin: 04/07/17 02:45 Dose: 650 mg Acetylcysteine (Acetylcysteine 20%) 4 ml INH RQ8 [facility] Last Admin: 05/29/17 23:48 Dose: 4 ml Albuterol/Ipratropium (Duoneb 3 Mg/0.5 Mg (3 Ml) Ud) 3 ml INH RQ8 [facility] Last Admin: 05/29/17 23:48 Dose: 3 ml Aspirin (Aspirin Chewable) 81 mg PO DAILY [facility] Last Admin: 05/29/17 10:00 Dose: 81 mg Bethanechol Chloride (Urecholine) 50 mg PEG TID [facility] Last Admin: 05/29/17 17:54 Dose: 50 mg Carvedilol (Coreg) 3.125 mg PEG BID [facility] Last Admin: 05/29/17 17:54 Dose: 3.125 mg Clopidogrel Bisulfate (Plavix) 75 mg PO DAILY [facility] Last Admin: 05/29/17 09:59 Dose: 75 mg Enoxaparin Sodium (Lovenox) 30 mg SC DAILY [facility] Last Admin: 05/29/17 09:58 Dose: 30 mg Famotidine (Pepcid) 20 mg PEG BID [facility] Last Admin: 05/29/17 17:54 Dose: 20 mg Finasteride (Proscar) 5 mg PO DAILY [facility] Last Admin: 05/29/17 09:59 Dose: 5 mg Guaifenesin/Codeine Phosphate (Guaifenesin/Codeine) 10 ml PO DAILY [facility] Last Admin: 05/29/17 09:59 Dose: 10 ml Levetiracetam (Keppra) 500 mg PO BID [facility] Last Admin: 05/29/17 17:54 Dose: 500 mg Saccharomyces Boulardii (Florastor) 250 mg PO DAILY [facility] Last Admin: 05/29/17 10:00 Dose: 250 mg Scopolamine (Transderm-Scop) 1 patch TD Q3D [facility] Last Admin: 05/29/17 10:00 Dose: 1 patch Tamsulosin HCl (Flomax) 0.4 mg PO DAILY [facility] Last Admin: 05/29/17 10:00 Dose: 0.4 mg - Labs Labs: 05/29/17 06:49 05/26/17 09:07 PT 10.6 SECONDS (9.7-12.2) 11/24/15 14:10 INR 1.0 11/24/15 14:10 APTT 25 SECONDS (21-34) 11/24/15 14:10 - Head Exam Head Exam: NORMAL INSPECTION, NORMOCEPHALIC - Eye Exam Eye Exam: absent: Normal appearance - ENT Exam ENT Exam: Mucous Membranes Moist - Neck Exam Neck Exam: absent: Normal Inspection (trach in place) - Respiratory Exam Respiratory Exam: Rhonchi, Wheezes. absent: NORMAL BREATHING PATTERN - Cardiovascular Exam Cardiovascular Exam: REGULAR RHYTHM, +S1, +S2 - GI/Abdominal Exam GI & Abdominal Exam: Soft, Diminished Bowel Sounds - Extremities Exam Extremities Exam: Pedal Edema - Neurological Exam Neurological Exam: Altered. absent: Alert, Awake, Oriented x3 - Psychiatric Exam Psychiatric exam: Flat Affect. absent: Normal Affect, Normal Mood - Skin Skin Exam: Dry, Intact, Normal Color, Warm Assessment and Plan (1) Anoxic encephalopathy Assessment & Plan: s/p cardiac arrest in 05/2015 no acute changes Pt has non spontaneous movements. continue current management. Continue tube feeds- at goal of 60 Florastor 250mg PO TID via PEG Status: Chronic (2) UTI (urinary tract infection) Assessment & Plan: Patient afebrile Completed course of Amikacin and Meropenem. amikacin discontinued on 04/18 ( total 10), Meropenem (04/13) total 7 days Urine culture (04/06/17): + Proteus Mirabilis Urine [place] catheter in place Ordered- new condom catheter 05/22/17 Tylenol 650mg po q6 PEG PRN UA and Urine Cx ordered on 05/28/17 showed gram negative rods WBC count trending down 9.2 (05/29/17); 12.2 (05/28/17) CBC: F/U Status: Resolved (3) Urinary retention Assessment & Plan: Take note condom cath not always securely in place so Is and Os are approximate as patient does wet bed Ordered- new condom catheter on 05/22/17 Flomax 0.4mg PEG daily Proscar 5mg PEG daily continue Bethanecol 50mg PEG TID- started after persistent retention and found to be effective. monitor I's and O's Check bladder scan for residual urine three times weekly Status: Acute (4) Watery stools Assessment & Plan: Recent completion of Merrem, Amikacin C. diff negative (04/26/17) Stool leukocytes negative (04/26/17) stool culture (04/26/17) negative Status: Resolved (5) Respiratory failure Assessment & Plan: Trach in place, continue daily monitoring for secretions. No change in management at this time. Continue with aggressive suctioning multiple times a day per respiratory therapist. Monitor for signs of respiratory distress Thick secretions Duoneb 3ml INH Q6 and Mucomyst 4ml INH Q6H Robitussin 100mg PEG Q12H Scopolamine 1 patch TD Q3D [facility] Repeat CXR on 05/28/17: linear increased consolidative changes in the right mid- lung zone and left lung base which may represent atelectasis and/or infiltrate. Question trace left pleural effusion. moderate venous congestion. cardiomegaly. degenerative changes in the spine and shoulders Status: Chronic (6) Sacral ulcer Assessment & Plan: Healed Cont with offloading/cushioning/turning Continue frequent turning, protective ointment and skin checks. Status: Resolved (7) History of coronary artery disease Assessment & Plan: s/p cardiac stents on 06/13/15 Cont ASA 81mg via PEG daily Cont Coreg 3.125mg PEG BID Cont Plavix 75mg PO daily Status: Acute (8) Seizures Assessment & Plan: Cont Keppra 500mg PEG BID for seizure prophylaxis Monitor for activity Status: Acute (9) Lower extremity edema Assessment & Plan: Improved Continue to monitor Status: Acute (10) Constipation Assessment & Plan: Resolved.Per the nurse, patient has not had a bowel movement in 5 days. Lactulose 30gm PEG once on 05/20/17 Status: Resolved (11) Prophylactic measure Assessment & Plan: Pepcid 20 mg PEG BID Lovenox 30mg SC daily SCDs and offloading boots continue to turn and reposition q2hrs Feeds increased to 60cc/hr. Per quarry plug and feather driller (05/02/17): tube feed goal: Isosource 1.5 @ 60cc/h Will continue tube feeds @ 60 unless patient cannot tolerate PICC line discontinued 05/22/17 Continue to monitor medication administrations and clinical presentation weekly labs. Status: Acute <Donnell Ying M - Last Filed: 05/30/17 18:32> Objective - Vital Signs/Intake and Output Vital Signs (last 24 hours): Temp Pulse Resp BP Pulse Ox 98.2 F 75 20 111/77 96 05/30/17 15:07 05/30/17 15:07 05/30/17 15:07 05/30/17 15:07 05/30/17 15:07 Intake and Output: 05/30/17 05/30/17 06:59 18:59 Intake Total 1200 600 Output Total 400 300 Balance 800 300 - Medications Medications: Current Medications Acetaminophen (Tylenol 650mg/20.3ml Solution Ud) 650 mg PEG Q6 PRN PRN Reason: Fever >100.4 F Last Admin: 04/07/17 02:45 Dose: 650 mg Acetylcysteine (Acetylcysteine 20%) 4 ml INH RQ8 [facility] Last Admin: 05/30/17 16:12 Dose: 4 ml Albuterol/Ipratropium (Duoneb 3 Mg/0.5 Mg (3 Ml) Ud) 3 ml INH RQ8 [facility] Last Admin: 05/30/17 16:12 Dose: 3 ml Aspirin (Aspirin Chewable) 81 mg PO DAILY [facility] Last Admin: 05/30/17 10:48 Dose: 81 mg Bethanechol Chloride (Urecholine) 50 mg PEG TID [facility] Last Admin: 05/30/17 17:43 Dose: 50 mg Carvedilol (Coreg) 3.125 mg PEG BID [facility] Last Admin: 05/30/17 17:41 Dose: 3.125 mg Clopidogrel Bisulfate (Plavix) 75 mg PO DAILY [facility] Last Admin: 05/30/17 10:48 Dose: 75 mg Enoxaparin Sodium (Lovenox) 30 mg SC DAILY [facility] Last Admin: 05/30/17 10:46 Dose: 30 mg Famotidine (Pepcid) 20 mg PEG BID [facility] Last Admin: 05/30/17 17:42 Dose: 20 mg Finasteride (Proscar) 5 mg PO DAILY [facility] Last Admin: 05/30/17 10:49 Dose: 5 mg Guaifenesin/Codeine Phosphate (Guaifenesin/Codeine) 10 ml PO DAILY [facility] Last Admin: 05/30/17 10:50 Dose: 10 ml Imipenem/Cilastatin Sodium 500 (mg/ Dextrose) 100 mls @ 100 mls/hr IVPB Q6H [facility] Levetiracetam (Keppra) 500 mg PO BID [facility] Last Admin: 05/30/17 17:41 Dose: 500 mg Saccharomyces Boulardii (Florastor) 250 mg PO DAILY [facility] Last Admin: 05/30/17 10:48 Dose: 250 mg Scopolamine (Transderm-Scop) 1 patch TD Q3D [facility] Last Admin: 05/29/17 10:00 Dose: 1 patch Tamsulosin HCl (Flomax) 0.4 mg PO DAILY [facility] Last Admin: 05/30/17 10:48 Dose: 0.4 mg - Labs Labs: 05/30/17 08:23 05/26/17 09:07 PT 10.6 SECONDS (9.7-12.2) 11/24/15 14:10 INR 1.0 11/24/15 14:10 APTT 25 SECONDS (21-34) 11/24/15 14:10 Attending/Attestation - Attestation I have personally seen and examined this patient.: Yes I have fully participated in the care of the patient.: Yes I have reviewed all pertinent clinical information, including history, physical exam and plan: Yes Notes (Text): 05/30/17 18:31 Patient was seen and examined at bedside Urine culture noted. Positive for Proteus Mirabilis which is sensitive to imipenem. We will start the patient on imipenem Agree with the assessment and plan but the resident.
[2017-05-30 08:34] LABS: BASO # 0.1 K/uL (0.0-0.2); BASO % 0.9 % (0.0-2.0); EOS # 0.6 K/uL (0.0-0.7); EOS % 5.8 % (0.0-4.0); HEMOGLOBIN 11.4 g/dL (12.0-18.0); LYMPH % 20.8 % (20.0-40.0); MEAN CELL VOLUME 87.8 fL (80.0-94.0); MEAN CORPUSCULAR HEMOGLOBIN 28.2 pg (27.0-31.0); MEAN CORPUSCULAR HGB CONC 32.1 g/dL (33.0-37.0); MEAN PLATELET VOLUME 9.3 fL (7.2-11.7); MONO # 1.2 K/uL (0.0-0.8); MONO % 12.1 % (0.0-10.0); NEUT # 5.9 K/uL (1.8-7.0); NEUT % 60.4 % (50.0-75.0); RBC 4.05 Mil/uL (4.40-5.90); RED CELL DISTRIBUTION WIDTH 16.9 % (11.5-14.5); WHITE BLOOD COUNT 9.7 K/uL (4.8-10.8)
[2017-05-30] MEDS: Acetylcysteine 20% Inhal Soln (4ml) INH SCH ×2 (09:08→16:12)
[2017-05-30] MEDS: Albuterol-Ipratrop 3 mg / 0.5 (3 ml) UD INH SCH ×2 (09:08→16:12)
[2017-05-30] MEDS: Enoxaparin 30 mg Syringe SC SCH (10:46)
[2017-05-30] MEDS: guaiFENesin-Codeine 100-10mg/5ml Syrup (10ml) UD PO SCH ×2 (10:47→10:50)
[2017-05-30] MEDS: Saccharomyces Boulardi 250 mg Cap PO SCH (10:48)
[2017-05-31] MEDS: Albuterol-Ipratrop 3 mg / 0.5 (3 ml) UD INH SCH ×3 (00:26→16:55)
[2017-05-31] MEDS: Acetylcysteine 20% Inhal Soln (4ml) INH SCH ×3 (00:26→16:53)
--- NOTE | 2017-05-31 01:22 | CP.PCM.PN ---
<Vesna Turpin - Last Filed: 05/31/17 01:19> Subjective - Date & Time of Evaluation Date of Evaluation: 05/31/17 Time of Evaluation: 01:19 - Subjective Subjective: Medicine Progress Note- Dr. Ying Service Patient was seen and examined at bedside in no acute distress. No acute events overnights. Patient is unresponsive due to anoxic brain injury in 2015. Objective - Vital Signs/Intake and Output Vital Signs (last 24 hours): Temp Pulse Resp BP Pulse Ox 98.4 F 71 20 116/80 99 05/31/17 00:00 05/31/17 00:00 05/31/17 00:00 05/31/17 00:00 05/31/17 00:00 Intake and Output: 05/30/17 05/31/17 18:59 06:59 Intake Total 600 700 Output Total 300 500 Balance 300 200 - Medications Medications: Current Medications Acetaminophen (Tylenol 650mg/20.3ml Solution Ud) 650 mg PEG Q6 PRN PRN Reason: Fever >100.4 F Last Admin: 04/07/17 02:45 Dose: 650 mg Acetylcysteine (Acetylcysteine 20%) 4 ml INH RQ8 [facility] Last Admin: 05/31/17 00:26 Dose: 4 ml Albuterol/Ipratropium (Duoneb 3 Mg/0.5 Mg (3 Ml) Ud) 3 ml INH RQ8 [facility] Last Admin: 05/31/17 00:26 Dose: 3 ml Aspirin (Aspirin Chewable) 81 mg PO DAILY [facility] Last Admin: 05/30/17 10:48 Dose: 81 mg Bethanechol Chloride (Urecholine) 50 mg PEG TID [facility] Last Admin: 05/30/17 17:43 Dose: 50 mg Carvedilol (Coreg) 3.125 mg PEG BID [facility] Last Admin: 05/30/17 17:41 Dose: 3.125 mg Clopidogrel Bisulfate (Plavix) 75 mg PO DAILY [facility] Last Admin: 05/30/17 10:48 Dose: 75 mg Enoxaparin Sodium (Lovenox) 30 mg SC DAILY [facility] Last Admin: 05/30/17 10:46 Dose: 30 mg Famotidine (Pepcid) 20 mg PEG BID [facility] Last Admin: 05/30/17 17:42 Dose: 20 mg Finasteride (Proscar) 5 mg PO DAILY [facility] Last Admin: 05/30/17 10:49 Dose: 5 mg Guaifenesin/Codeine Phosphate (Guaifenesin/Codeine) 10 ml PO DAILY [facility] Last Admin: 05/30/17 10:50 Dose: 10 ml Imipenem/Cilastatin Sodium 500 (mg/ Sodium Chloride) 100 mls @ 100 mls/hr IVPB Q6H [facility] Last Admin: 05/31/17 00:10 Dose: 100 mls/hr Levetiracetam (Keppra) 500 mg PO BID [facility] Last Admin: 05/30/17 17:41 Dose: 500 mg Saccharomyces Boulardii (Florastor) 250 mg PO DAILY [facility] Last Admin: 05/30/17 10:48 Dose: 250 mg Scopolamine (Transderm-Scop) 1 patch TD Q3D [facility] Last Admin: 05/29/17 10:00 Dose: 1 patch Tamsulosin HCl (Flomax) 0.4 mg PO DAILY [facility] Last Admin: 05/30/17 10:48 Dose: 0.4 mg - Labs Labs: 05/30/17 08:23 05/26/17 09:07 PT 10.6 SECONDS (9.7-12.2) 11/24/15 14:10 INR 1.0 11/24/15 14:10 APTT 25 SECONDS (21-34) 11/24/15 14:10 - Constitutional Appears: No Acute Distress - Head Exam Head Exam: NORMAL INSPECTION, NORMOCEPHALIC - Eye Exam Eye Exam: absent: EOMI, Normal appearance - ENT Exam ENT Exam: Mucous Membranes Moist - Neck Exam Neck Exam: absent: Full ROM, Normal Inspection (trach in place) - Respiratory Exam Respiratory Exam: Rhonchi, Wheezes, NORMAL BREATHING PATTERN - Cardiovascular Exam Cardiovascular Exam: REGULAR RHYTHM, +S1, +S2 - GI/Abdominal Exam GI & Abdominal Exam: Distended, Hypoactive Bowel Sounds - Extremities Exam Extremities Exam: Normal Inspection. absent: Pedal Edema - Neurological Exam Neurological Exam: Altered. absent: Alert, Awake, Oriented x3 - Psychiatric Exam Psychiatric exam: Flat Affect. absent: Normal Affect, Normal Mood - Skin Skin Exam: Dry, Intact, Normal Color, Warm Assessment and Plan (1) Anoxic encephalopathy Assessment & Plan: s/p cardiac arrest in 05/2015 no acute changes Pt has non spontaneous movements. continue current management. Continue tube feeds- at goal of 60 Florastor 250mg PO TID via PEG Status: Chronic (2) UTI (urinary tract infection) Assessment & Plan: Patient afebrile Completed course of Amikacin and Meropenem. amikacin discontinued on 04/18 ( total 10), Meropenem (04/13) total 7 days Urine culture (04/06/17): + Proteus Mirabilis Urine [place] catheter in place Ordered- new condom catheter 05/22/17 Tylenol 650mg po q6 PEG PRN UA and Urine Cx ordered on 05/28/17 showed gram negative rods --> Proteus Mirabilis Started Primaxin 500mg IV Q6 on 05/30/17 WBC count trending down 9/7 (05/30/17); 9.2 (05/29/17); 12.2 (05/28/17) CBC: F/U Status: Resolved (3) Urinary retention Assessment & Plan: Take note condom cath not always securely in place so Is and Os are approximate as patient does wet bed Ordered- new condom catheter on 05/22/17 Flomax 0.4mg PEG daily Proscar 5mg PEG daily continue Bethanecol 50mg PEG TID- started after persistent retention and found to be effective. monitor I's and O's Check bladder scan for residual urine three times weekly Status: Acute (4) Watery stools Assessment & Plan: Recent completion of Merrem, Amikacin C. diff negative (04/26/17) Stool leukocytes negative (04/26/17) stool culture (04/26/17) negative Status: Resolved (5) Respiratory failure Assessment & Plan: Trach in place, continue daily monitoring for secretions. No change in management at this time. Continue with aggressive suctioning multiple times a day per respiratory therapist. Monitor for signs of respiratory distress Thick secretions Duoneb 3ml INH Q6 and Mucomyst 4ml INH Q6H Robitussin 100mg PEG Q12H Scopolamine 1 patch TD Q3D [facility] Repeat CXR on 05/28/17: linear increased consolidative changes in the right mid- lung zone and left lung base which may represent atelectasis and/or infiltrate. Question trace left pleural effusion. moderate venous congestion. cardiomegaly. degenerative changes in the spine and shoulders Status: Chronic (6) Sacral ulcer Assessment & Plan: Healed Cont with offloading/cushioning/turning Continue frequent turning, protective ointment and skin checks. Status: Resolved (7) History of coronary artery disease Assessment & Plan: s/p cardiac stents on 06/13/15 Cont ASA 81mg via PEG daily Cont Coreg 3.125mg PEG BID Cont Plavix 75mg PO daily Status: Acute (8) Seizures Assessment & Plan: Cont Keppra 500mg PEG BID for seizure prophylaxis Monitor for activity Status: Acute (9) Lower extremity edema Assessment & Plan: Improved Continue to monitor Status: Acute (10) Constipation Assessment & Plan: Resolved. Lactulose 30gm PEG once on 05/20/17 Status: Resolved (11) Prophylactic measure Assessment & Plan: Pepcid 20 mg PEG BID Lovenox 30mg SC daily SCDs and offloading boots continue to turn and reposition q2hrs Feeds increased to 60cc/hr. Per associate director (05/02/17): tube feed goal: Isosource 1.5 @ 60cc/h Will continue tube feeds @ 60 unless patient cannot tolerate PICC line discontinued 05/22/17 Continue to monitor medication administrations and clinical presentation weekly labs. Status: Acute <Donnell Ying M - Last Filed: 05/31/17 13:40> Objective - Vital Signs/Intake and Output Vital Signs (last 24 hours): Temp Pulse Resp BP Pulse Ox 99.2 F 90 23 132/87 100 05/31/17 08:00 05/31/17 08:00 05/31/17 08:00 05/31/17 08:00 05/31/17 08:00 Intake and Output: 05/31/17 05/31/17 06:59 18:59 Intake Total 1500 Output Total 900 Balance 600 - Medications Medications: Current Medications Acetaminophen (Tylenol 650mg/20.3ml Solution Ud) 650 mg PEG Q6 PRN PRN Reason: Fever >100.4 F Last Admin: 04/07/17 02:45 Dose: 650 mg Acetylcysteine (Acetylcysteine 20%) 4 ml INH RQ8 [facility] Last Admin: 05/31/17 09:01 Dose: 4 ml Albuterol/Ipratropium (Duoneb 3 Mg/0.5 Mg (3 Ml) Ud) 3 ml INH RQ8 [facility] Last Admin: 05/31/17 09:01 Dose: 3 ml Aspirin (Aspirin Chewable) 81 mg PO DAILY [facility] Last Admin: 05/31/17 10:06 Dose: 81 mg Bethanechol Chloride (Urecholine) 50 mg PEG TID [facility] Last Admin: 05/31/17 10:07 Dose: 50 mg Carvedilol (Coreg) 3.125 mg PEG BID [facility] Last Admin: 05/31/17 10:06 Dose: 3.125 mg Clopidogrel Bisulfate (Plavix) 75 mg PO DAILY [facility] Last Admin: 05/31/17 10:06 Dose: 75 mg Enoxaparin Sodium (Lovenox) 30 mg SC DAILY [facility] Last Admin: 05/31/17 10:07 Dose: 30 mg Famotidine (Pepcid) 20 mg PEG BID [facility] Last Admin: 05/31/17 10:11 Dose: 20 mg Finasteride (Proscar) 5 mg PO DAILY [facility] Last Admin: 05/31/17 10:07 Dose: 5 mg Guaifenesin/Codeine Phosphate (Guaifenesin/Codeine) 10 ml PO DAILY [facility] Last Admin: 05/31/17 10:06 Dose: 10 ml Imipenem/Cilastatin Sodium 500 (mg/ Sodium Chloride) 100 mls @ 100 mls/hr IVPB Q6H [facility] Last Admin: 05/31/17 06:02 Dose: 100 mls/hr Levetiracetam (Keppra) 500 mg PO BID [facility] Last Admin: 05/31/17 10:06 Dose: 500 mg Saccharomyces Boulardii (Florastor) 250 mg PO DAILY [facility] Last Admin: 05/31/17 10:06 Dose: 250 mg Scopolamine (Transderm-Scop) 1 patch TD Q3D [facility] Last Admin: 05/29/17 10:00 Dose: 1 patch Tamsulosin HCl (Flomax) 0.4 mg PO DAILY [facility] Last Admin: 05/31/17 10:07 Dose: 0.4 mg - Labs Labs: 05/30/17 08:23 05/26/17 09:07 PT 10.6 SECONDS (9.7-12.2) 11/24/15 14:10 INR 1.0 11/24/15 14:10 APTT 25 SECONDS (21-34) 11/24/15 14:10 Attending/Attestation - Attestation I have personally seen and examined this patient.: Yes I have fully participated in the care of the patient.: Yes I have reviewed all pertinent clinical information, including history, physical exam and plan: Yes Notes (Text): 05/31/17 13:39 Patient was seen and examined at bedside Patient started on Primaxin day #2 for UTI We will continue Primaxin for a total of 7 days I discussed the plan of care with the resident and agree with the history and physical and assessment/plan documented.
[2017-05-31] MEDS: guaiFENesin-Codeine 100-10mg/5ml Syrup (10ml) UD PO SCH (10:06)
[2017-05-31] MEDS: Saccharomyces Boulardi 250 mg Cap PO SCH (10:06)
[2017-05-31] MEDS: Enoxaparin 30 mg Syringe SC SCH (10:07)
[2017-06-01] MEDS: Acetylcysteine 20% Inhal Soln (4ml) INH SCH ×3 (00:55→22:55)
[2017-06-01] MEDS: Albuterol-Ipratrop 3 mg / 0.5 (3 ml) UD INH SCH ×2 (00:55→08:27)
--- NOTE | 2017-06-01 07:44 | CP.PCM.PN ---
Subjective - Date & Time of Evaluation Date of Evaluation: 06/01/17 Time of Evaluation: 07:44 - Subjective Subjective: Medicine Progress Note- Dr. Chavis's Service Patient was seen and examined at bedside in no acute distress. Patient is unable to respond to questions of review of systems due to an anoxic brain injury in 2014. Objective - Vital Signs/Intake and Output Vital Signs (last 24 hours): Temp Pulse Resp BP Pulse Ox 97.7 F 75 20 116/80 100 06/01/17 00:00 06/01/17 00:00 06/01/17 00:00 06/01/17 00:00 06/01/17 00:00 Intake and Output: 06/01/17 06/01/17 06:59 18:59 Intake Total 1700 Output Total 1000 Balance 700 - Medications Medications: Current Medications Acetaminophen (Tylenol 650mg/20.3ml Solution Ud) 650 mg PEG Q6 PRN PRN Reason: Fever >100.4 F Last Admin: 04/07/17 02:45 Dose: 650 mg Acetylcysteine (Acetylcysteine 20%) 4 ml INH RQ8 [facility] Last Admin: 06/01/17 00:55 Dose: 4 ml Albuterol/Ipratropium (Duoneb 3 Mg/0.5 Mg (3 Ml) Ud) 3 ml INH RQ8 [facility] Last Admin: 06/01/17 00:55 Dose: 3 ml Aspirin (Aspirin Chewable) 81 mg PO DAILY [facility] Last Admin: 05/31/17 10:06 Dose: 81 mg Bethanechol Chloride (Urecholine) 50 mg PEG TID [facility] Last Admin: 05/31/17 18:20 Dose: 50 mg Carvedilol (Coreg) 3.125 mg PEG BID [facility] Last Admin: 05/31/17 18:18 Dose: 3.125 mg Clopidogrel Bisulfate (Plavix) 75 mg PO DAILY [facility] Last Admin: 05/31/17 10:06 Dose: 75 mg Enoxaparin Sodium (Lovenox) 30 mg SC DAILY [facility] Last Admin: 05/31/17 10:07 Dose: 30 mg Famotidine (Pepcid) 20 mg PEG BID [facility] Last Admin: 05/31/17 18:19 Dose: 20 mg Finasteride (Proscar) 5 mg PO DAILY [facility] Last Admin: 05/31/17 10:07 Dose: 5 mg Guaifenesin/Codeine Phosphate (Guaifenesin/Codeine) 10 ml PO DAILY [facility] Last Admin: 05/31/17 10:06 Dose: 10 ml Imipenem/Cilastatin Sodium 500 (mg/ Sodium Chloride) 100 mls @ 100 mls/hr IVPB Q6H [facility] Last Admin: 06/01/17 06:07 Dose: 100 mls/hr Levetiracetam (Keppra) 500 mg PO BID [facility] Last Admin: 05/31/17 18:46 Dose: 500 mg Saccharomyces Boulardii (Florastor) 250 mg PO DAILY [facility] Last Admin: 05/31/17 10:06 Dose: 250 mg Scopolamine (Transderm-Scop) 1 patch TD Q3D [facility] Last Admin: 05/29/17 10:00 Dose: 1 patch Tamsulosin HCl (Flomax) 0.4 mg PO DAILY [facility] Last Admin: 05/31/17 10:07 Dose: 0.4 mg - Labs Labs: 05/30/17 08:23 05/26/17 09:07 PT 10.6 SECONDS (9.7-12.2) 11/24/15 14:10 INR 1.0 11/24/15 14:10 APTT 25 SECONDS (21-34) 11/24/15 14:10 - Constitutional Appears: No Acute Distress - Head Exam Head Exam: NORMAL INSPECTION, NORMOCEPHALIC - Eye Exam Eye Exam: absent: Normal appearance - ENT Exam ENT Exam: Mucous Membranes Moist - Neck Exam Neck Exam: absent: Full ROM, Normal Inspection (trach in place) - Respiratory Exam Respiratory Exam: Rhonchi, Wheezes, NORMAL BREATHING PATTERN. absent: Clear to Ausculation Bilateral - Cardiovascular Exam Cardiovascular Exam: REGULAR RHYTHM, +S1, +S2 - GI/Abdominal Exam GI & Abdominal Exam: Firm, Normal Bowel Sounds - Extremities Exam Extremities Exam: Normal Inspection. absent: Full ROM, Pedal Edema - Neurological Exam Neurological Exam: Altered. absent: Alert, Awake, Oriented x3 - Psychiatric Exam Psychiatric exam: Flat Affect. absent: Normal Affect, Normal Mood - Skin Skin Exam: Dry, Intact, Normal Color, Warm Assessment and Plan (1) Anoxic encephalopathy Assessment & Plan: s/p cardiac arrest in 05/2015 no acute changes Pt has non spontaneous movements. continue current management. Continue tube feeds- at goal of 60 Florastor 250mg PO TID via PEG Status: Chronic (2) UTI (urinary tract infection) Assessment & Plan: Patient afebrile Completed course of Amikacin and Meropenem. amikacin discontinued on 04/18 ( total 10), Meropenem (04/13) total 7 days Urine culture (04/06/17): + Proteus Mirabilis Urine [place] catheter in place Ordered- new condom catheter 05/22/17 Tylenol 650mg po q6 PEG PRN UA and Urine Cx ordered on 05/28/17 showed gram negative rods --> Proteus Mirabilis Started Primaxin 500mg IV Q6 on 05/30/17 WBC count trending down 9/7 (05/30/17); 9.2 (05/29/17); 12.2 (05/28/17) CBC: F/U Status: Resolved (3) Urinary retention Assessment & Plan: Take note condom cath not always securely in place so Is and Os are approximate as patient does wet bed Ordered- new condom catheter on 05/22/17 Flomax 0.4mg PEG daily Proscar 5mg PEG daily continue Bethanecol 50mg PEG TID- started after persistent retention and found to be effective. monitor I's and O's Check bladder scan for residual urine three times weekly Status: Acute (4) Watery stools Assessment & Plan: Recent completion of Merrem, Amikacin C. diff negative (04/26/17) Stool leukocytes negative (04/26/17) stool culture (04/26/17) negative Status: Resolved (5) Respiratory failure Assessment & Plan: Trach in place, continue daily monitoring for secretions. No change in management at this time. Continue with aggressive suctioning multiple times a day per respiratory therapist. Monitor for signs of respiratory distress Thick secretions Duoneb 3ml INH Q6 and Mucomyst 4ml INH Q6H Robitussin 100mg PEG Q12H Scopolamine 1 patch TD Q3D [facility] Repeat CXR on 05/28/17: linear increased consolidative changes in the right mid- lung zone and left lung base which may represent atelectasis and/or infiltrate. Question trace left pleural effusion. moderate venous congestion. cardiomegaly. degenerative changes in the spine and shoulders Status: Chronic (6) Sacral ulcer Assessment & Plan: Healed Cont with offloading/cushioning/turning Continue frequent turning, protective ointment and skin checks. Status: Resolved (7) History of coronary artery disease Assessment & Plan: s/p cardiac stents on 06/13/15 Cont ASA 81mg via PEG daily Cont Coreg 3.125mg PEG BID Cont Plavix 75mg PO daily Status: Acute (8) Seizures Assessment & Plan: Cont Keppra 500mg PEG BID for seizure prophylaxis Monitor for activity Status: Acute (9) Lower extremity edema Assessment & Plan: Improved Continue to monitor Status: Acute (10) Constipation Assessment & Plan: Lactulose 20gm PEG once on 06/01/17 Lactulose 30gm PEG once on 05/20/17 Status: Acute (11) Prophylactic measure Assessment & Plan: Pepcid 20 mg PEG BID Lovenox 30mg SC daily SCDs and offloading boots continue to turn and reposition q2hrs Feeds increased to 60cc/hr. Per plant protection guard (05/02/17): tube feed goal: Isosource 1.5 @ 60cc/h Will continue tube feeds @ 60 unless patient cannot tolerate PICC line discontinued 05/22/17 Continue to monitor medication administrations and clinical presentation weekly labs. Status: Acute
[2017-06-01 08:22] LABS: BASO % 0.4 % (0.0-2.0); EOS # 0.7 K/uL (0.0-0.7); EOS % 5.9 % (0.0-4.0); HEMOGLOBIN 11.1 g/dL (12.0-18.0); LYMPH # 2.2 K/uL (1.0-4.3); LYMPH % 19.2 % (20.0-40.0); MEAN CORPUSCULAR HEMOGLOBIN 28.2 pg (27.0-31.0); MEAN CORPUSCULAR HGB CONC 31.7 g/dL (33.0-37.0); MEAN PLATELET VOLUME 9.3 fL (7.2-11.7); MONO # 1.2 K/uL (0.0-0.8); MONO % 10.6 % (0.0-10.0); NEUT # 7.3 K/uL (1.8-7.0); NEUT % 63.9 % (50.0-75.0); RBC 3.95 Mil/uL (4.40-5.90); RED CELL DISTRIBUTION WIDTH 16.6 % (11.5-14.5); WHITE BLOOD COUNT 11.4 K/uL (4.8-10.8)
[2017-06-01 08:45] LABS: ALBUMIN 3.3 g/dL (3.5-5.0)
[2017-06-01 08:47] LABS: GFR NON-AFRICAN AMERICAN > 60
[2017-06-01 08:48] LABS: ALB/GLOB RATIO 0.7 (1.0-2.1); ALT/SGPT 42 U/L (21-72); AST/SGOT 26 U/L (17-59); BLOOD UREA NITROGEN 13 mg/dL (9-20); CALCIUM 8.8 mg/dl (8.6-10.4)
[2017-06-01] MEDS: guaiFENesin-Codeine 100-10mg/5ml Syrup (10ml) UD PO SCH (09:20)
[2017-06-01] MEDS: Enoxaparin 30 mg Syringe SC SCH (09:20)
[2017-06-01] MEDS: Saccharomyces Boulardi 250 mg Cap PO SCH (09:21)
[2017-06-02] MEDS: Acetylcysteine 20% Inhal Soln (4ml) INH SCH ×3 (00:37→19:48)
[2017-06-02] MEDS: Saccharomyces Boulardi 250 mg Cap PO SCH (09:13)
[2017-06-02] MEDS: guaiFENesin-Codeine 100-10mg/5ml Syrup (10ml) UD PO SCH (09:14)
[2017-06-02] MEDS: Enoxaparin 30 mg Syringe SC SCH (09:14)
--- NOTE | 2017-06-02 18:53 | CP.PCM.PN ---
<Vesna Turpin - Last Filed: 06/02/17 18:50> Subjective - Date & Time of Evaluation Date of Evaluation: 06/02/17 Time of Evaluation: 18:50 - Subjective Subjective: Medicine Progress Note- Dr. Chavis's Service Patient was seen and examined at bedside in no acute distress. Patient is unable to respond to questions of review of systems due to an anoxic brain injury in 2015. Objective - Vital Signs/Intake and Output Vital Signs (last 24 hours): Temp Pulse Resp BP Pulse Ox 98.4 F 83 20 127/84 98 06/02/17 16:00 06/02/17 16:00 06/02/17 16:00 06/02/17 16:00 06/02/17 16:00 Intake and Output: 06/02/17 06/02/17 06:59 18:59 Intake Total 1500 550 Output Total 800 200 Balance 700 350 - Medications Medications: Current Medications Acetaminophen (Tylenol 650mg/20.3ml Solution Ud) 650 mg PEG Q6 PRN PRN Reason: Fever >100.4 F Last Admin: 04/07/17 02:45 Dose: 650 mg Acetylcysteine (Acetylcysteine 20%) 4 ml INH RQ8 [facility] Last Admin: 06/02/17 07:28 Dose: Not Given Aspirin (Aspirin Chewable) 81 mg PO DAILY [facility] Last Admin: 06/02/17 09:12 Dose: 81 mg Bethanechol Chloride (Urecholine) 50 mg PEG TID [facility] Last Admin: 06/02/17 17:28 Dose: 50 mg Carvedilol (Coreg) 3.125 mg PEG BID [facility] Last Admin: 06/02/17 17:28 Dose: 3.125 mg Clopidogrel Bisulfate (Plavix) 75 mg PO DAILY [facility] Last Admin: 06/02/17 09:15 Dose: 75 mg Enoxaparin Sodium (Lovenox) 30 mg SC DAILY [facility] Last Admin: 06/02/17 09:14 Dose: 30 mg Famotidine (Pepcid) 20 mg PEG BID [facility] Last Admin: 06/02/17 17:28 Dose: 20 mg Finasteride (Proscar) 5 mg PO DAILY [facility] Last Admin: 06/02/17 09:15 Dose: 5 mg Guaifenesin/Codeine Phosphate (Guaifenesin/Codeine) 10 ml PO DAILY [facility] Last Admin: 06/02/17 09:14 Dose: 10 ml Imipenem/Cilastatin Sodium 500 (mg/ Sodium Chloride) 100 mls @ 100 mls/hr IVPB Q6H [facility] Last Admin: 06/02/17 18:37 Dose: 100 mls/hr Levetiracetam (Keppra) 500 mg PO BID [facility] Last Admin: 06/02/17 17:28 Dose: 500 mg Saccharomyces Boulardii (Florastor) 250 mg PO DAILY [facility] Last Admin: 06/02/17 09:13 Dose: 250 mg Scopolamine (Transderm-Scop) 1 patch TD Q3D [facility] Last Admin: 06/01/17 09:35 Dose: 1 patch Tamsulosin HCl (Flomax) 0.4 mg PO DAILY [facility] Last Admin: 06/02/17 09:13 Dose: 0.4 mg - Labs Labs: 06/01/17 08:10 06/01/17 08:10 PT 10.6 SECONDS (9.7-12.2) 11/24/15 14:10 INR 1.0 11/24/15 14:10 APTT 25 SECONDS (21-34) 11/24/15 14:10 - Constitutional Appears: No Acute Distress - Head Exam Head Exam: NORMOCEPHALIC - Eye Exam Eye Exam: absent: Normal appearance - ENT Exam ENT Exam: Mucous Membranes Moist - Neck Exam Neck Exam: absent: Full ROM (trach in place), Normal Inspection - Respiratory Exam Respiratory Exam: Rhonchi, Wheezes. absent: Clear to Ausculation Bilateral, NORMAL BREATHING PATTERN - Cardiovascular Exam Cardiovascular Exam: REGULAR RHYTHM, +S1, +S2. absent: Murmur - GI/Abdominal Exam GI & Abdominal Exam: Distended, Firm, Hypoactive Bowel Sounds - Extremities Exam Extremities Exam: Normal Inspection. absent: Pedal Edema - Neurological Exam Neurological Exam: Altered. absent: Alert, Awake, Oriented x3 - Psychiatric Exam Psychiatric exam: Flat Affect. absent: Normal Affect, Normal Mood - Skin Skin Exam: Dry, Intact, Normal Color, Warm Assessment and Plan (1) Anoxic encephalopathy Assessment & Plan: s/p cardiac arrest in 05/2015 no acute changes Pt has non spontaneous movements. continue current management. Continue tube feeds- at goal of 60 Florastor 250mg PO TID via PEG Status: Chronic (2) UTI (urinary tract infection) Assessment & Plan: Patient afebrile Completed course of Amikacin and Meropenem. amikacin discontinued on 04/18 ( total 10), Meropenem (04/13) total 7 days Urine culture (04/06/17): + Proteus Mirabilis Urine [place] catheter in place Ordered- new condom catheter 05/22/17 Tylenol 650mg po q6 PEG PRN UA and Urine Cx ordered on 05/28/17 showed gram negative rods --> Proteus Mirabilis Started Primaxin 500mg IV Q6 on 05/30/17--> will discontinue tomorrow WBC count trending down 9/7 (05/30/17); 9.2 (05/29/17); 12.2 (05/28/17) CBC: F/U Status: Resolved (3) Urinary retention Assessment & Plan: Take note condom cath not always securely in place so Is and Os are approximate as patient does wet bed Ordered- new condom catheter on 05/22/17 Flomax 0.4mg PEG daily Proscar 5mg PEG daily continue Bethanecol 50mg PEG TID- started after persistent retention and found to be effective. monitor I's and O's Check bladder scan for residual urine three times weekly Status: Acute (4) Watery stools Assessment & Plan: Recent completion of Merrem, Amikacin C. diff negative (04/26/17) Stool leukocytes negative (04/26/17) stool culture (04/26/17) negative Status: Resolved (5) Respiratory failure Assessment & Plan: Trach in place, continue daily monitoring for secretions. No change in management at this time. Continue with aggressive suctioning multiple times a day per respiratory therapist. Monitor for signs of respiratory distress Thick secretions Duoneb 3ml INH Q6 and Mucomyst 4ml INH Q6H Robitussin 100mg PEG Q12H Scopolamine 1 patch TD Q3D [facility] Repeat CXR on 05/28/17: linear increased consolidative changes in the right mid- lung zone and left lung base which may represent atelectasis and/or infiltrate. Question trace left pleural effusion. moderate venous congestion. cardiomegaly. degenerative changes in the spine and shoulders Status: Chronic (6) Sacral ulcer Assessment & Plan: Healed Cont with offloading/cushioning/turning Continue frequent turning, protective ointment and skin checks. Status: Resolved (7) History of coronary artery disease Assessment & Plan: s/p cardiac stents on 06/13/15 Cont ASA 81mg via PEG daily Cont Coreg 3.125mg PEG BID Cont Plavix 75mg PO daily Status: Acute (8) Seizures Assessment & Plan: Cont Keppra 500mg PEG BID for seizure prophylaxis Monitor for activity Status: Acute (9) Lower extremity edema Assessment & Plan: Improved Continue to monitor Status: Acute (10) Constipation Assessment & Plan: Lactulose 20gm PEG once on 06/01/17 Lactulose 30gm PEG once on 05/20/17 Status: Acute (11) Prophylactic measure Assessment & Plan: Pepcid 20 mg PEG BID Lovenox 30mg SC daily SCDs and offloading boots continue to turn and reposition q2hrs Feeds increased to 50cc/hr. Per valve tester (05/02/17): tube feed goal: Isosource 1.5 @ 50cc/h Will continue tube feeds @ 50 with goal of 60cc/h PICC line discontinued 05/22/17 Continue to monitor medication administrations and clinical presentation weekly labs. Status: Acute <Amandeep Chavis H - Last Filed: 06/03/17 07:00> Objective - Vital Signs/Intake and Output Vital Signs (last 24 hours): Temp Pulse Resp BP Pulse Ox 99.4 F 74 20 125/83 99 06/02/17 23:41 06/02/17 23:41 06/02/17 23:41 06/02/17 23:41 06/02/17 23:41 Intake and Output: 06/02/17 06/03/17 18:59 06:59 Intake Total 550 500 Output Total 200 Balance 350 500 - Medications Medications: Current Medications Acetaminophen (Tylenol 650mg/20.3ml Solution Ud) 650 mg PEG Q6 PRN PRN Reason: Fever >100.4 F Last Admin: 04/07/17 02:45 Dose: 650 mg Acetylcysteine (Acetylcysteine 20%) 4 ml INH RQ8 [facility] Last Admin: 06/03/17 01:55 Dose: 4 ml Albuterol/Ipratropium (Duoneb 3 Mg/0.5 Mg (3 Ml) Ud) 3 ml INH RQ6 [facility] Last Admin: 06/03/17 01:55 Dose: 3 ml Aspirin (Aspirin Chewable) 81 mg PO DAILY [facility] Last Admin: 06/02/17 09:12 Dose: 81 mg Bethanechol Chloride (Urecholine) 50 mg PEG TID [facility] Last Admin: 06/02/17 17:28 Dose: 50 mg Carvedilol (Coreg) 3.125 mg PEG BID [facility] Last Admin: 06/02/17 17:28 Dose: 3.125 mg Clopidogrel Bisulfate (Plavix) 75 mg PO DAILY [facility] Last Admin: 06/02/17 09:15 Dose: 75 mg Enoxaparin Sodium (Lovenox) 30 mg SC DAILY [facility] Last Admin: 06/02/17 09:14 Dose: 30 mg Famotidine (Pepcid) 20 mg PEG BID [facility] Last Admin: 06/02/17 17:28 Dose: 20 mg Finasteride (Proscar) 5 mg PO DAILY [facility] Last Admin: 06/02/17 09:15 Dose: 5 mg Guaifenesin/Codeine Phosphate (Guaifenesin/Codeine) 10 ml PO DAILY [facility] Last Admin: 06/02/17 09:14 Dose: 10 ml Imipenem/Cilastatin Sodium 500 (mg/ Sodium Chloride) 100 mls @ 100 mls/hr IVPB Q6H [facility] Last Admin: 06/03/17 00:42 Dose: 100 mls/hr Levetiracetam (Keppra) 500 mg PO BID [facility] Last Admin: 06/02/17 17:28 Dose: 500 mg Saccharomyces Boulardii (Florastor) 250 mg PO DAILY [facility] Last Admin: 06/02/17 09:13 Dose: 250 mg Scopolamine (Transderm-Scop) 1 patch TD Q3D [facility] Last Admin: 06/01/17 09:35 Dose: 1 patch Tamsulosin HCl (Flomax) 0.4 mg PO DAILY [facility] Last Admin: 06/02/17 09:13 Dose: 0.4 mg - Labs Labs: 06/01/17 08:10 06/01/17 08:10 PT 10.6 SECONDS (9.7-12.2) 11/24/15 14:10 INR 1.0 11/24/15 14:10 APTT 25 SECONDS (21-34) 11/24/15 14:10 Assessment and Plan (1) Prophylactic measure Status: Acute (2) Anoxic encephalopathy Status: Chronic (3) STEMI (ST elevation myocardial infarction) Status: Acute (4) Cardiac arrest Status: Acute (5) Seizures Status: Acute (6) Respiratory failure Status: Chronic Attending/Attestation - Attestation I have personally seen and examined this patient.: Yes I have fully participated in the care of the patient.: Yes I have reviewed all pertinent clinical information, including history, physical exam and plan: Yes Notes (Text): 06/03/17 06:59 Medical Attending: Patient was seen and examined. Situation is not changed from before.
[2017-06-02] MEDS: Albuterol-Ipratrop 3 mg / 0.5 (3 ml) UD INH SCH (19:57)
[2017-06-03] MEDS: Acetylcysteine 20% Inhal Soln (4ml) INH SCH ×3 (01:55→15:58)
[2017-06-03] MEDS: Albuterol-Ipratrop 3 mg / 0.5 (3 ml) UD INH SCH ×4 (01:55→15:59)
--- NOTE | 2017-06-03 07:35 | CP.PCM.PN ---
Subjective - Date & Time of Evaluation Date of Evaluation: 06/03/17 Time of Evaluation: 07:32 - Subjective Subjective: Medicine Progress Note- Dr. Chavis's Service Patient was seen and examined at bedside in no acute distress. Patient is unable to respond to questions and review of systems due to anoxic brain injury that occurred in 05/2015. Objective - Vital Signs/Intake and Output Vital Signs (last 24 hours): Temp Pulse Resp BP Pulse Ox 99.4 F 74 20 125/83 99 06/02/17 23:41 06/02/17 23:41 06/02/17 23:41 06/02/17 23:41 06/02/17 23:41 Intake and Output: 06/03/17 06/03/17 06:59 18:59 Intake Total 500 800 Output Total 300 Balance 500 500 - Medications Medications: Current Medications Acetaminophen (Tylenol 650mg/20.3ml Solution Ud) 650 mg PEG Q6 PRN PRN Reason: Fever >100.4 F Last Admin: 04/07/17 02:45 Dose: 650 mg Acetylcysteine (Acetylcysteine 20%) 4 ml INH RQ8 [facility] Last Admin: 06/03/17 07:09 Dose: 4 ml Albuterol/Ipratropium (Duoneb 3 Mg/0.5 Mg (3 Ml) Ud) 3 ml INH RQ8 [facility] Aspirin (Aspirin Chewable) 81 mg PO DAILY [facility] Last Admin: 06/02/17 09:12 Dose: 81 mg Bethanechol Chloride (Urecholine) 50 mg PEG TID [facility] Last Admin: 06/02/17 17:28 Dose: 50 mg Carvedilol (Coreg) 3.125 mg PEG BID [facility] Last Admin: 06/02/17 17:28 Dose: 3.125 mg Clopidogrel Bisulfate (Plavix) 75 mg PO DAILY [facility] Last Admin: 06/02/17 09:15 Dose: 75 mg Enoxaparin Sodium (Lovenox) 30 mg SC DAILY [facility] Last Admin: 06/02/17 09:14 Dose: 30 mg Famotidine (Pepcid) 20 mg PEG BID [facility] Last Admin: 06/02/17 17:28 Dose: 20 mg Finasteride (Proscar) 5 mg PO DAILY [facility] Last Admin: 06/02/17 09:15 Dose: 5 mg Guaifenesin/Codeine Phosphate (Guaifenesin/Codeine) 10 ml PO DAILY [facility] Last Admin: 06/02/17 09:14 Dose: 10 ml Imipenem/Cilastatin Sodium 500 (mg/ Sodium Chloride) 100 mls @ 100 mls/hr IVPB Q6H [facility] Last Admin: 06/03/17 07:07 Dose: 100 mls/hr Levetiracetam (Keppra) 500 mg PO BID [facility] Last Admin: 06/02/17 17:28 Dose: 500 mg Saccharomyces Boulardii (Florastor) 250 mg PO DAILY [facility] Last Admin: 06/02/17 09:13 Dose: 250 mg Scopolamine (Transderm-Scop) 1 patch TD Q3D [facility] Last Admin: 06/01/17 09:35 Dose: 1 patch Tamsulosin HCl (Flomax) 0.4 mg PO DAILY [facility] Last Admin: 06/02/17 09:13 Dose: 0.4 mg - Labs Labs: 06/01/17 08:10 06/01/17 08:10 PT 10.6 SECONDS (9.7-12.2) 11/24/15 14:10 INR 1.0 11/24/15 14:10 APTT 25 SECONDS (21-34) 11/24/15 14:10 - Constitutional Appears: No Acute Distress - Head Exam Head Exam: NORMAL INSPECTION, NORMOCEPHALIC - Eye Exam Eye Exam: absent: EOMI, Normal appearance - ENT Exam ENT Exam: Mucous Membranes Moist - Neck Exam Neck Exam: absent: Full ROM (trach in place), Normal Inspection - Respiratory Exam Respiratory Exam: Rhonchi, Wheezes, NORMAL BREATHING PATTERN. absent: Clear to Ausculation Bilateral - Cardiovascular Exam Cardiovascular Exam: REGULAR RHYTHM, +S1, +S2 - GI/Abdominal Exam GI & Abdominal Exam: Distended, Firm, Normal Bowel Sounds. absent: Soft - Extremities Exam Extremities Exam: absent: Full ROM, Pedal Edema - Neurological Exam Neurological Exam: Altered. absent: Alert, Awake, Oriented x3 - Psychiatric Exam Psychiatric exam: Flat Affect. absent: Normal Affect, Normal Mood - Skin Skin Exam: Dry, Intact, Normal Color, Warm Assessment and Plan (1) Anoxic encephalopathy Assessment & Plan: s/p cardiac arrest in 05/2015 no acute changes Pt has non spontaneous movements. continue current management. Continue tube feeds- at 50; goal of 60 Florastor 250mg PO TID via PEG Status: Chronic (2) UTI (urinary tract infection) Assessment & Plan: Patient afebrile Completed course of Amikacin and Meropenem. amikacin discontinued on 04/18 ( total 10), Meropenem (04/13) total 7 days Urine culture (04/06/17): + Proteus Mirabilis Urine [place] catheter in place Ordered- new condom catheter 05/22/17 Tylenol 650mg po q6 PEG PRN UA and Urine Cx ordered on 05/28/17 showed gram negative rods --> Proteus Mirabilis Started Primaxin 500mg IV Q6 on 05/30/17--> discontinued WBC count trending down 9/7 (05/30/17); 9.2 (05/29/17); 12.2 (05/28/17) CBC: F/U Status: Resolved (3) Urinary retention Assessment & Plan: Take note condom cath not always securely in place so Is and Os are approximate as patient does wet bed Ordered- new condom catheter on 05/22/17 Flomax 0.4mg PEG daily Proscar 5mg PEG daily continue Bethanecol 50mg PEG TID- started after persistent retention and found to be effective. monitor I's and O's Check bladder scan for residual urine three times weekly Status: Acute (4) Watery stools Assessment & Plan: Recent completion of Merrem, Amikacin C. diff negative (04/26/17) Stool leukocytes negative (04/26/17) stool culture (04/26/17) negative Status: Resolved (5) Respiratory failure Assessment & Plan: Trach in place, continue daily monitoring for secretions. No change in management at this time. Continue with aggressive suctioning multiple times a day per respiratory therapist. Monitor for signs of respiratory distress Thick secretions Duoneb 3ml INH Q8 and Mucomyst 4ml INH Q8H Robitussin 100mg PEG Q12H Scopolamine 1 patch TD Q3D [facility] Repeat CXR on 05/28/17: linear increased consolidative changes in the right mid- lung zone and left lung base which may represent atelectasis and/or infiltrate. Question trace left pleural effusion. moderate venous congestion. cardiomegaly. degenerative changes in the spine and shoulders Status: Chronic (6) Sacral ulcer Assessment & Plan: Healed Cont with offloading/cushioning/turning Continue frequent turning, protective ointment and skin checks. Status: Resolved (7) History of coronary artery disease Assessment & Plan: s/p cardiac stents on 06/13/15 Cont ASA 81mg via PEG daily Cont Coreg 3.125mg PEG BID Cont Plavix 75mg PO daily Status: Acute (8) Seizures Assessment & Plan: Cont Keppra 500mg PEG BID for seizure prophylaxis Monitor for activity Status: Acute (9) Lower extremity edema Assessment & Plan: Improved Continue to monitor Status: Acute (10) Constipation Assessment & Plan: As per nurse, patient had BM yesterday AM on 06/02/17 Lactulose 20gm PEG once on 06/01/17 Lactulose 30gm PEG once on 05/20/17 Status: Acute (11) Prophylactic measure Assessment & Plan: Pepcid 20 mg PEG BID Lovenox 30mg SC daily SCDs and offloading bootsCcontinue to turn and reposition q2hrs Per hand suture winder (05/02/17): tube feed goal: Isosource 1.5 @ 60cc/h Will continue tube feeds @ 50 unless patient cannot tolerate PICC line discontinued 05/22/17 Continue to monitor medication administrations and clinical presentation weekly labs. Status: Acute
[2017-06-03] MEDS: Saccharomyces Boulardi 250 mg Cap PO SCH (09:43)
[2017-06-03] MEDS: Enoxaparin 30 mg Syringe SC SCH (09:43)
[2017-06-03] MEDS: guaiFENesin-Codeine 100-10mg/5ml Syrup (10ml) UD PO SCH (09:43)
[2017-06-04] MEDS: Albuterol-Ipratrop 3 mg / 0.5 (3 ml) UD INH SCH ×3 (00:55→16:02)
[2017-06-04] MEDS: Acetylcysteine 20% Inhal Soln (4ml) INH SCH ×3 (00:55→16:02)
[2017-06-04] MEDS: Enoxaparin 30 mg Syringe SC SCH (10:13)
[2017-06-04] MEDS: Saccharomyces Boulardi 250 mg Cap PO SCH (10:13)
[2017-06-04] MEDS: guaiFENesin-Codeine 100-10mg/5ml Syrup (10ml) UD PO SCH (10:13)
--- NOTE | 2017-06-04 10:52 | CP.PCM.PN ---
<Vesna Turpin - Last Filed: 06/04/17 16:25> Subjective - Date & Time of Evaluation Date of Evaluation: 06/04/17 Time of Evaluation: 10:49 - Subjective Subjective: Medicine Progress Note- Dr. Chavis's Service Patient was seen and examined at bedside in no acute distress. Patient is unable to respond to questions and review of systems due to anoxic brain injury that occurred in 05/2015. Objective - Vital Signs/Intake and Output Vital Signs (last 24 hours): Temp Pulse Resp BP Pulse Ox 97.1 F L 85 20 131/80 100 06/04/17 08:31 06/04/17 08:31 06/04/17 08:31 06/04/17 08:31 06/04/17 08:31 Intake and Output: 06/04/17 06/04/17 06:59 18:59 Intake Total 1200 Output Total 600 Balance 600 - Medications Medications: Current Medications Acetaminophen (Tylenol 650mg/20.3ml Solution Ud) 650 mg PEG Q6 PRN PRN Reason: Fever >100.4 F Last Admin: 04/07/17 02:45 Dose: 650 mg Acetylcysteine (Acetylcysteine 20%) 4 ml INH RQ8 [facility] Last Admin: 06/04/17 07:24 Dose: 4 ml Albuterol/Ipratropium (Duoneb 3 Mg/0.5 Mg (3 Ml) Ud) 3 ml INH RQ8 [facility] Last Admin: 06/04/17 07:24 Dose: 3 ml Aspirin (Aspirin Chewable) 81 mg PO DAILY [facility] Last Admin: 06/04/17 10:13 Dose: 81 mg Bethanechol Chloride (Urecholine) 50 mg PEG TID [facility] Last Admin: 06/04/17 10:13 Dose: 50 mg Carvedilol (Coreg) 3.125 mg PEG BID [facility] Last Admin: 06/04/17 10:20 Dose: 3.125 mg Clopidogrel Bisulfate (Plavix) 75 mg PO DAILY [facility] Last Admin: 06/04/17 10:24 Dose: 75 mg Enoxaparin Sodium (Lovenox) 30 mg SC DAILY [facility] Last Admin: 06/04/17 10:13 Dose: 30 mg Famotidine (Pepcid) 20 mg PEG BID [facility] Last Admin: 06/04/17 10:14 Dose: 20 mg Finasteride (Proscar) 5 mg PO DAILY [facility] Last Admin: 06/04/17 10:14 Dose: 5 mg Guaifenesin/Codeine Phosphate (Guaifenesin/Codeine) 10 ml PO DAILY [facility] Last Admin: 06/04/17 10:13 Dose: 10 ml Levetiracetam (Keppra) 500 mg PO BID [facility] Last Admin: 06/04/17 10:20 Dose: 500 mg Saccharomyces Boulardii (Florastor) 250 mg PO DAILY [facility] Last Admin: 06/04/17 10:13 Dose: 250 mg Scopolamine (Transderm-Scop) 1 patch TD Q3D [facility] Last Admin: 06/04/17 10:13 Dose: 1 patch Tamsulosin HCl (Flomax) 0.4 mg PO DAILY [facility] Last Admin: 06/04/17 10:14 Dose: 0.4 mg - Labs Labs: 06/01/17 08:10 06/01/17 08:10 PT 10.6 SECONDS (9.7-12.2) 11/24/15 14:10 INR 1.0 11/24/15 14:10 APTT 25 SECONDS (21-34) 11/24/15 14:10 - Constitutional Appears: No Acute Distress - Head Exam Head Exam: NORMAL INSPECTION, NORMOCEPHALIC - Eye Exam Eye Exam: Normal appearance - ENT Exam ENT Exam: Mucous Membranes Moist - Neck Exam Neck Exam: absent: Full ROM (trach in place), Normal Inspection - Respiratory Exam Respiratory Exam: Rhonchi, Wheezes. absent: Clear to Ausculation Bilateral, NORMAL BREATHING PATTERN - Cardiovascular Exam Cardiovascular Exam: REGULAR RHYTHM, +S1, +S2 - GI/Abdominal Exam GI & Abdominal Exam: Distended, Firm, Normal Bowel Sounds. absent: Soft - Extremities Exam Extremities Exam: Normal Inspection. absent: Pedal Edema - Neurological Exam Neurological Exam: Altered. absent: Alert, Awake, Oriented x3 - Psychiatric Exam Psychiatric exam: Flat Affect. absent: Normal Affect, Normal Mood - Skin Skin Exam: Dry, Intact, Normal Color, Warm Assessment and Plan (1) Anoxic encephalopathy Assessment & Plan: s/p cardiac arrest in 05/2015 no acute changes Pt has non spontaneous movements. continue current management. Continue tube feeds- at 40; goal of 60 Florastor 250mg PO TID via PEG Status: Chronic (2) UTI (urinary tract infection) Assessment & Plan: Patient afebrile Completed course of Amikacin and Meropenem. amikacin discontinued on 04/18 ( total 10), Meropenem (04/13) total 7 days Urine culture (04/06/17): + Proteus Mirabilis Urine [place] catheter in place Ordered- new condom catheter 05/22/17 Tylenol 650mg po q6 PEG PRN UA and Urine Cx ordered on 05/28/17 showed gram negative rods --> Proteus Mirabilis Started Primaxin 500mg IV Q6 on 05/30/17--> discontinued WBC count trending down 9/7 (05/30/17); 9.2 (05/29/17); 12.2 (05/28/17) CBC: F/U Status: Resolved (3) Urinary retention Assessment & Plan: Take note condom cath not always securely in place so Is and Os are approximate as patient does wet bed Ordered- new condom catheter on 05/22/17 Flomax 0.4mg PEG daily Proscar 5mg PEG daily continue Bethanecol 50mg PEG TID- started after persistent retention and found to be effective. monitor I's and O's Check bladder scan for residual urine three times weekly Status: Acute (4) Watery stools Assessment & Plan: Recent completion of Merrem, Amikacin C. diff negative (04/26/17) Stool leukocytes negative (04/26/17) stool culture (04/26/17) negative Status: Resolved (5) Respiratory failure Assessment & Plan: Trach in place, continue daily monitoring for secretions. No change in management at this time. Continue with aggressive suctioning multiple times a day per respiratory therapist. Monitor for signs of respiratory distress Thick secretions Duoneb 3ml INH Q8 and Mucomyst 4ml INH Q8H Robitussin 100mg PEG Q12H Scopolamine 1 patch TD Q3D JOO Repeat CXR on 05/28/17: linear increased consolidative changes in the right mid- lung zone and left lung base which may represent atelectasis and/or infiltrate. Question trace left pleural effusion. moderate venous congestion. cardiomegaly. degenerative changes in the spine and shoulders Status: Chronic (6) Sacral ulcer Assessment & Plan: Healed Cont with offloading/cushioning/turning Continue frequent turning, protective ointment and skin checks. Status: Resolved (7) History of coronary artery disease Assessment & Plan: s/p cardiac stents on 06/13/15 Cont ASA 81mg via PEG daily Cont Coreg 3.125mg PEG BID Cont Plavix 75mg PO daily Status: Acute (8) Seizures Assessment & Plan: Cont Keppra 500mg PEG BID for seizure prophylaxis Monitor for activity Status: Acute (9) Lower extremity edema Assessment & Plan: Improved Continue to monitor Gave Lasix 40mg once for mild generalized edema 06/04/17 Reduced feeds to 40cc/h Status: Acute (10) Constipation Assessment & Plan: As per nurse, patient had BM yesterday AM on 06/02/17 Lactulose 20gm PEG once on 06/01/17 Lactulose 30gm PEG once on 05/20/17 Status: Acute (11) Prophylactic measure Assessment & Plan: Pepcid 20 mg PEG BID Lovenox 30mg SC daily SCDs and offloading boots Continue to turn and reposition q2hrs Per podopediatrician (05/02/17): tube feed goal: Isosource 1.5 @ 40cc/h 06/04/17- Decreased tube feeds to 40; goal of 60 PICC line discontinued 05/22/17 Continue to monitor medication administrations and clinical presentation weekly labs. Status: Acute <PalmiraPeter H - Last Filed: 06/04/17 17:38> Objective - Vital Signs/Intake and Output Vital Signs (last 24 hours): Temp Pulse Resp BP Pulse Ox 98.2 F 75 20 122/76 100 06/04/17 16:00 06/04/17 16:00 06/04/17 16:00 06/04/17 16:32 06/04/17 16:00 Intake and Output: 06/04/17 06/04/17 06:59 18:59 Intake Total 1200 500 Output Total 600 500 Balance 600 0 - Medications Medications: Current Medications Acetaminophen (Tylenol 650mg/20.3ml Solution Ud) 650 mg PEG Q6 PRN PRN Reason: Fever >100.4 F Last Admin: 04/07/17 02:45 Dose: 650 mg Acetylcysteine (Acetylcysteine 20%) 4 ml INH RQ8 [facility] Last Admin: 06/04/17 16:02 Dose: 4 ml Albuterol/Ipratropium (Duoneb 3 Mg/0.5 Mg (3 Ml) Ud) 3 ml INH RQ8 [facility] Last Admin: 06/04/17 16:02 Dose: 3 ml Aspirin (Aspirin Chewable) 81 mg PO DAILY [facility] Last Admin: 06/04/17 10:13 Dose: 81 mg Bethanechol Chloride (Urecholine) 50 mg PEG TID [facility] Last Admin: 06/04/17 17:04 Dose: 50 mg Carvedilol (Coreg) 3.125 mg PEG BID [facility] Last Admin: 06/04/17 17:04 Dose: 3.125 mg Clopidogrel Bisulfate (Plavix) 75 mg PO DAILY [facility] Last Admin: 06/04/17 10:24 Dose: 75 mg Enoxaparin Sodium (Lovenox) 30 mg SC DAILY [facility] Last Admin: 06/04/17 10:13 Dose: 30 mg Famotidine (Pepcid) 20 mg PEG BID [facility] Last Admin: 06/04/17 17:04 Dose: 20 mg Finasteride (Proscar) 5 mg PO DAILY [facility] Last Admin: 06/04/17 10:14 Dose: 5 mg Guaifenesin/Codeine Phosphate (Guaifenesin/Codeine) 10 ml PO DAILY [facility] Last Admin: 06/04/17 10:13 Dose: 10 ml Levetiracetam (Keppra) 500 mg PO BID [facility] Last Admin: 06/04/17 17:04 Dose: 500 mg Saccharomyces Boulardii (Florastor) 250 mg PO DAILY [facility] Last Admin: 06/04/17 10:13 Dose: 250 mg Scopolamine (Transderm-Scop) 1 patch TD Q3D [facility] Last Admin: 06/04/17 10:13 Dose: 1 patch Tamsulosin HCl (Flomax) 0.4 mg PO DAILY [facility] Last Admin: 06/04/17 10:14 Dose: 0.4 mg - Labs Labs: 06/01/17 08:10 06/01/17 08:10 PT 10.6 SECONDS (9.7-12.2) 11/24/15 14:10 INR 1.0 11/24/15 14:10 APTT 25 SECONDS (21-34) 11/24/15 14:10 Assessment and Plan (1) Prophylactic measure Status: Acute (2) Anoxic encephalopathy Status: Chronic (3) STEMI (ST elevation myocardial infarction) Status: Acute (4) Cardiac arrest Status: Acute (5) Seizures Status: Acute (6) Respiratory failure Status: Chronic Attending/Attestation - Attestation I have personally seen and examined this patient.: Yes I have fully participated in the care of the patient.: Yes I have reviewed all pertinent clinical information, including history, physical exam and plan: Yes Notes (Text): 06/04/17 17:38 Medical Attending: Patient was seen and examined by me. Agree with the above note by the resident. Situation is grossly unchanged. Today Lasix x 1 dose, he appeared to have more edema than usuall thank you Amandeep Chavis
[2017-06-05] MEDS: Acetylcysteine 20% Inhal Soln (4ml) INH SCH ×3 (00:39→16:23)
[2017-06-05] MEDS: Albuterol-Ipratrop 3 mg / 0.5 (3 ml) UD INH SCH ×3 (00:39→16:23)
[2017-06-05] MEDS: Enoxaparin 30 mg Syringe SC SCH (10:55)
[2017-06-05] MEDS: Saccharomyces Boulardi 250 mg Cap PO SCH (10:55)
[2017-06-05] MEDS: guaiFENesin-Codeine 100-10mg/5ml Syrup (10ml) UD PO SCH (10:55)
--- NOTE | 2017-06-05 14:32 | CP.PCM.PN ---
<Vesna Turpin - Last Filed: 06/05/17 14:30> Subjective - Date & Time of Evaluation Date of Evaluation: 06/05/17 Time of Evaluation: 14:30 - Subjective Subjective: Medicine Progress Note- Dr. Chavis's Service Patient was seen and examined at bedside in no acute distress. Patient is unable to respond to questions and review of systems due to anoxic brain injury that occurred in 05/2015. Objective - Vital Signs/Intake and Output Vital Signs (last 24 hours): Temp Pulse Resp BP Pulse Ox 98.8 F 94 H 20 124/82 100 06/05/17 08:01 06/05/17 08:01 06/05/17 08:01 06/05/17 08:01 06/05/17 08:01 Intake and Output: 06/05/17 06/05/17 06:59 18:59 Intake Total 1000 600 Output Total 1300 300 Balance -300 300 - Medications Medications: Current Medications Acetaminophen (Tylenol 650mg/20.3ml Solution Ud) 650 mg PEG Q6 PRN PRN Reason: Fever >100.4 F Last Admin: 04/07/17 02:45 Dose: 650 mg Acetylcysteine (Acetylcysteine 20%) 4 ml INH RQ8 [facility] Last Admin: 06/05/17 07:44 Dose: 4 ml Albuterol/Ipratropium (Duoneb 3 Mg/0.5 Mg (3 Ml) Ud) 3 ml INH RQ8 [facility] Last Admin: 06/05/17 07:44 Dose: 3 ml Aspirin (Aspirin Chewable) 81 mg PO DAILY [facility] Last Admin: 06/05/17 10:55 Dose: 81 mg Bethanechol Chloride (Urecholine) 50 mg PEG TID [facility] Last Admin: 06/05/17 14:18 Dose: 50 mg Carvedilol (Coreg) 3.125 mg PEG BID [facility] Last Admin: 06/05/17 10:55 Dose: 3.125 mg Clopidogrel Bisulfate (Plavix) 75 mg PO DAILY [facility] Last Admin: 06/05/17 10:55 Dose: 75 mg Enoxaparin Sodium (Lovenox) 30 mg SC DAILY [facility] Last Admin: 06/05/17 10:55 Dose: 30 mg Famotidine (Pepcid) 20 mg PEG BID [facility] Last Admin: 06/05/17 10:55 Dose: 20 mg Finasteride (Proscar) 5 mg PO DAILY [facility] Last Admin: 06/05/17 10:56 Dose: 5 mg Guaifenesin/Codeine Phosphate (Guaifenesin/Codeine) 10 ml PO DAILY [facility] Last Admin: 06/05/17 10:55 Dose: 10 ml Levetiracetam (Keppra) 500 mg PO BID [facility] Last Admin: 06/05/17 10:55 Dose: 500 mg Saccharomyces Boulardii (Florastor) 250 mg PO DAILY [facility] Last Admin: 06/05/17 10:55 Dose: 250 mg Scopolamine (Transderm-Scop) 1 patch TD Q3D [facility] Last Admin: 06/04/17 10:13 Dose: 1 patch Tamsulosin HCl (Flomax) 0.4 mg PO DAILY [facility] Last Admin: 06/05/17 10:55 Dose: 0.4 mg - Labs Labs: 06/01/17 08:10 06/01/17 08:10 PT 10.6 SECONDS (9.7-12.2) 11/24/15 14:10 INR 1.0 11/24/15 14:10 APTT 25 SECONDS (21-34) 11/24/15 14:10 - Constitutional Appears: No Acute Distress - Head Exam Head Exam: NORMAL INSPECTION, NORMOCEPHALIC - Eye Exam Eye Exam: Normal appearance. absent: EOMI - ENT Exam ENT Exam: Mucous Membranes Moist - Neck Exam Neck Exam: absent: Full ROM (trach in place), Normal Inspection - Respiratory Exam Respiratory Exam: Rhonchi, Wheezes. absent: Clear to Ausculation Bilateral, NORMAL BREATHING PATTERN - Cardiovascular Exam Cardiovascular Exam: REGULAR RHYTHM, +S1, +S2 - GI/Abdominal Exam GI & Abdominal Exam: Distended, Normal Bowel Sounds - Extremities Exam Extremities Exam: Normal Inspection. absent: Full ROM, Pedal Edema - Neurological Exam Neurological Exam: Altered. absent: Alert, Awake, Oriented x3 - Psychiatric Exam Psychiatric exam: Flat Affect. absent: Normal Affect, Normal Mood - Skin Skin Exam: Dry, Intact, Normal Color, Warm Assessment and Plan (1) Anoxic encephalopathy Assessment & Plan: s/p cardiac arrest in 05/2015 no acute changes Pt has non spontaneous movements. continue current management. Continue tube feeds- at 40; goal of 60 Florastor 250mg PO TID via PEG Status: Chronic (2) UTI (urinary tract infection) Assessment & Plan: Patient afebrile Completed course of Amikacin and Meropenem. amikacin discontinued on 04/18 ( total 10), Meropenem (04/13) total 7 days Urine culture (04/06/17): + Proteus Mirabilis Urine [place] catheter in place Ordered- new condom catheter 05/22/17 Tylenol 650mg po q6 PEG PRN UA and Urine Cx ordered on 05/28/17 showed gram negative rods --> Proteus Mirabilis Started Primaxin 500mg IV Q6 on 05/30/17--> discontinued WBC count trending down 9/7 (05/30/17); 9.2 (05/29/17); 12.2 (05/28/17) CBC: F/U Status: Resolved Status: Resolved (3) Urinary retention Assessment & Plan: Take note condom cath not always securely in place so Is and Os are approximate as patient does wet bed Ordered- new condom catheter on 05/22/17 Flomax 0.4mg PEG daily Proscar 5mg PEG daily continue Bethanecol 50mg PEG TID- started after persistent retention and found to be effective. monitor I's and O's Check bladder scan for residual urine three times weekly Status: Acute (4) Watery stools Assessment & Plan: Recent completion of Merrem, Amikacin C. diff negative (04/26/17) Stool leukocytes negative (04/26/17) stool culture (04/26/17) negative Status: Resolved (5) Respiratory failure Assessment & Plan: Trach in place, continue daily monitoring for secretions. No change in management at this time. Continue with aggressive suctioning multiple times a day per respiratory therapist. Monitor for signs of respiratory distress Thick secretions Duoneb 3ml INH Q8 and Mucomyst 4ml INH Q8H Robitussin 100mg PEG Q12H Scopolamine 1 patch TD Q3D JOO Repeat CXR on 05/28/17: linear increased consolidative changes in the right mid- lung zone and left lung base which may represent atelectasis and/or infiltrate. Question trace left pleural effusion. moderate venous congestion. cardiomegaly. degenerative changes in the spine and shoulders Status: Chronic (6) Sacral ulcer Assessment & Plan: Healed Cont with offloading/cushioning/turning Continue frequent turning, protective ointment and skin checks. Status: Resolved (7) History of coronary artery disease Assessment & Plan: s/p cardiac stents on 06/13/15 Cont ASA 81mg via PEG daily Cont Coreg 3.125mg PEG BID Cont Plavix 75mg PO daily Status: Acute (8) Seizures Assessment & Plan: Cont Keppra 500mg PEG BID for seizure prophylaxis Monitor for activity Status: Acute (9) Lower extremity edema Assessment & Plan: Improved Continue to monitor Gave Lasix 40mg once for mild generalized edema 06/04/17 Reduced feeds to 40cc/h Status: Acute (10) Constipation Assessment & Plan: As per nurse, patient had BM yesterday AM on 06/02/17 Lactulose 20gm PEG once on 06/01/17 Lactulose 30gm PEG once on 05/20/17 Status: Acute (11) Prophylactic measure Assessment & Plan: Pepcid 20 mg PEG BID Lovenox 30mg SC daily SCDs and offloading boots Continue to turn and reposition q2hrs Per provider network mgr (05/02/17): tube feed goal: Isosource 1.5 @ 40cc/h 06/04/17- Decreased tube feeds to 40; goal of 60 PICC line discontinued 05/22/17 Continue to monitor medication administrations and clinical presentation weekly labs. Status: Acute <Amandeep Chavis H - Last Filed: 06/05/17 14:42> Objective - Vital Signs/Intake and Output Vital Signs (last 24 hours): Temp Pulse Resp BP Pulse Ox 98.8 F 94 H 20 124/82 100 06/05/17 08:01 06/05/17 08:01 06/05/17 08:01 06/05/17 08:01 06/05/17 08:01 Intake and Output: 06/05/17 06/05/17 06:59 18:59 Intake Total 1000 600 Output Total 1300 300 Balance -300 300 - Medications Medications: Current Medications Acetaminophen (Tylenol 650mg/20.3ml Solution Ud) 650 mg PEG Q6 PRN PRN Reason: Fever >100.4 F Last Admin: 04/07/17 02:45 Dose: 650 mg Acetylcysteine (Acetylcysteine 20%) 4 ml INH RQ8 [facility] Last Admin: 06/05/17 07:44 Dose: 4 ml Albuterol/Ipratropium (Duoneb 3 Mg/0.5 Mg (3 Ml) Ud) 3 ml INH RQ8 [facility] Last Admin: 06/05/17 07:44 Dose: 3 ml Aspirin (Aspirin Chewable) 81 mg PO DAILY [facility] Last Admin: 06/05/17 10:55 Dose: 81 mg Bethanechol Chloride (Urecholine) 50 mg PEG TID [facility] Last Admin: 06/05/17 14:18 Dose: 50 mg Carvedilol (Coreg) 3.125 mg PEG BID [facility] Last Admin: 06/05/17 10:55 Dose: 3.125 mg Clopidogrel Bisulfate (Plavix) 75 mg PO DAILY [facility] Last Admin: 06/05/17 10:55 Dose: 75 mg Enoxaparin Sodium (Lovenox) 30 mg SC DAILY [facility] Last Admin: 06/05/17 10:55 Dose: 30 mg Famotidine (Pepcid) 20 mg PEG BID [facility] Last Admin: 06/05/17 10:55 Dose: 20 mg Finasteride (Proscar) 5 mg PO DAILY [facility] Last Admin: 06/05/17 10:56 Dose: 5 mg Guaifenesin/Codeine Phosphate (Guaifenesin/Codeine) 10 ml PO DAILY [facility] Last Admin: 06/05/17 10:55 Dose: 10 ml Levetiracetam (Keppra) 500 mg PO BID [facility] Last Admin: 06/05/17 10:55 Dose: 500 mg Saccharomyces Boulardii (Florastor) 250 mg PO DAILY [facility] Last Admin: 06/05/17 10:55 Dose: 250 mg Scopolamine (Transderm-Scop) 1 patch TD Q3D [facility] Last Admin: 06/04/17 10:13 Dose: 1 patch Tamsulosin HCl (Flomax) 0.4 mg PO DAILY [facility] Last Admin: 06/05/17 10:55 Dose: 0.4 mg - Labs Labs: 06/01/17 08:10 06/01/17 08:10 PT 10.6 SECONDS (9.7-12.2) 11/24/15 14:10 INR 1.0 11/24/15 14:10 APTT 25 SECONDS (21-34) 11/24/15 14:10 Assessment and Plan (1) Prophylactic measure Status: Acute (2) Anoxic encephalopathy Status: Chronic (3) STEMI (ST elevation myocardial infarction) Status: Acute (4) Cardiac arrest Status: Acute (5) Seizures Status: Acute (6) Respiratory failure Status: Chronic Attending/Attestation - Attestation I have personally seen and examined this patient.: Yes I have fully participated in the care of the patient.: Yes I have reviewed all pertinent clinical information, including history, physical exam and plan: Yes Notes (Text): 06/05/17 14:41 Medical attending: Patient was seen and examined by me, agrees the above note by medical stenographer. A situation is mostly unchanged from before. I'm afraid I don't have any more new news to report at this time. Thank you very much, Amandeep Chavis
--- NOTE | 2017-06-06 00:25 | CP.PCM.PN ---
Subjective - Date & Time of Evaluation Date of Evaluation: 06/06/17 Time of Evaluation: 01:35 - Subjective Subjective: Medicine Progress Note (PGY1) - Dr. Chavis's Service Patient was seen and examined at bedside in no acute distress. Patient is unable to respond to questions and review of systems due to anoxic brain injury that occurred in 05/2015 Objective - Vital Signs/Intake and Output Vital Signs (last 24 hours): Temp Pulse Resp BP Pulse Ox 98.3 F 81 20 126/82 96 06/05/17 16:00 06/05/17 16:00 06/05/17 16:00 06/05/17 16:00 06/05/17 16:00 Intake and Output: 06/05/17 06/06/17 18:59 06:59 Intake Total 600 600 Output Total 300 300 Balance 300 300 - Medications Medications: Current Medications Acetaminophen (Tylenol 650mg/20.3ml Solution Ud) 650 mg PEG Q6 PRN PRN Reason: Fever >100.4 F Last Admin: 04/07/17 02:45 Dose: 650 mg Acetylcysteine (Acetylcysteine 20%) 4 ml INH RQ8 [facility] Last Admin: 06/05/17 16:23 Dose: 4 ml Albuterol/Ipratropium (Duoneb 3 Mg/0.5 Mg (3 Ml) Ud) 3 ml INH RQ8 [facility] Last Admin: 06/05/17 16:23 Dose: 3 ml Aspirin (Aspirin Chewable) 81 mg PO DAILY [facility] Last Admin: 06/05/17 10:55 Dose: 81 mg Bethanechol Chloride (Urecholine) 50 mg PEG TID [facility] Last Admin: 06/05/17 18:37 Dose: 50 mg Carvedilol (Coreg) 3.125 mg PEG BID [facility] Last Admin: 06/05/17 17:36 Dose: 3.125 mg Clopidogrel Bisulfate (Plavix) 75 mg PO DAILY [facility] Last Admin: 06/05/17 10:55 Dose: 75 mg Enoxaparin Sodium (Lovenox) 30 mg SC DAILY [facility] Last Admin: 06/05/17 10:55 Dose: 30 mg Famotidine (Pepcid) 20 mg PEG BID [facility] Last Admin: 06/05/17 17:37 Dose: 20 mg Finasteride (Proscar) 5 mg PO DAILY [facility] Last Admin: 07/14/17 10:56 Dose: 5 mg Guaifenesin/Codeine Phosphate (Guaifenesin/Codeine) 10 ml PO DAILY [facility] Last Admin: 06/05/17 10:55 Dose: 10 ml Levetiracetam (Keppra) 500 mg PO BID [facility] Last Admin: 06/05/17 17:37 Dose: 500 mg Saccharomyces Boulardii (Florastor) 250 mg PO DAILY [facility] Last Admin: 06/05/17 10:55 Dose: 250 mg Scopolamine (Transderm-Scop) 1 patch TD Q3D [facility] Last Admin: 06/04/17 10:13 Dose: 1 patch Tamsulosin HCl (Flomax) 0.4 mg PO DAILY [facility] Last Admin: 06/05/17 10:55 Dose: 0.4 mg - Labs Labs: 06/01/17 08:10 06/01/17 08:10 PT 10.6 SECONDS (9.7-12.2) 11/24/15 14:10 INR 1.0 11/24/15 14:10 APTT 25 SECONDS (21-34) 11/24/15 14:10 - Constitutional Appears: No Acute Distress - ENT Exam ENT Exam: Mucous Membranes Moist, Normal Exam - Respiratory Exam Respiratory Exam: NORMAL BREATHING PATTERN - Cardiovascular Exam Cardiovascular Exam: REGULAR RHYTHM, +S1, +S2 - GI/Abdominal Exam GI & Abdominal Exam: Soft, Normal Bowel Sounds - Extremities Exam Extremities Exam: Normal Inspection. absent: Pedal Edema - Neurological Exam Neurological Exam: absent: Alert, Awake, Oriented x3 - Skin Skin Exam: Dry, Normal Color, Warm Assessment and Plan (1) Anoxic encephalopathy Assessment & Plan: s/p cardiac arrest in 05/2015 no acute changes Pt has non spontaneous movements. continue current management. Continue tube feeds- at 40; goal of 60 Florastor 250mg PO TID via PEG Status: Chronic (2) Urinary tract infection Assessment & Plan: Patient afebrile Completed course of Amikacin and Meropenem. amikacin discontinued on 04/18 ( total 10), Meropenem (04/13) total 7 days Urine culture (04/06/17): + Proteus Mirabilis Urine [place] catheter in place Ordered- new condom catheter 05/22/17 Tylenol 650mg po q6 PEG PRN UA and Urine Cx ordered on 05/28/17 showed gram negative rods --> Proteus Mirabilis Started Primaxin 500mg IV Q6 on 05/30/17--> discontinued WBC count trending down 9/7 (05/30/17); 9.2 (05/29/17); 12.2 (05/28/17) CBC: F/U Status: Acute (3) Urinary retention Assessment & Plan: Take note condom cath not always securely in place so Is and Os are approximate as patient does wet bed Ordered- new condom catheter on 05/22/17 Flomax 0.4mg PEG daily Proscar 5mg PEG daily continue Bethanecol 50mg PEG TID- started after persistent retention and found to be effective. monitor I's and O's Check bladder scan for residual urine three times weekly Status: Acute (4) Watery stools Assessment & Plan: Recent completion of Merrem, Amikacin C. diff negative (04/26/17) Stool leukocytes negative (04/26/17) stool culture (04/26/17) negative Status: Resolved (5) Respiratory failure Assessment & Plan: Trach in place, continue daily monitoring for secretions. No change in management at this time. Continue with aggressive suctioning multiple times a day per respiratory therapist. Monitor for signs of respiratory distress Thick secretions Duoneb 3ml INH Q8 and Mucomyst 4ml INH Q8H Robitussin 100mg PEG Q12H Scopolamine 1 patch TD Q3D [facility] Repeat CXR on 05/28/17: linear increased consolidative changes in the right mid- lung zone and left lung base which may represent atelectasis and/or infiltrate. Question trace left pleural effusion. moderate venous congestion. cardiomegaly. degenerative changes in the spine and shoulders Status: Chronic (6) Sacral ulcer Assessment & Plan: Healed Cont with offloading/cushioning/turning Continue frequent turning, protective ointment and skin checks. Status: Resolved (7) History of coronary artery disease Assessment & Plan: s/p cardiac stents on 06/13/15 Cont ASA 81mg via PEG daily Cont Coreg 3.125mg PEG BID Cont Plavix 75mg PO daily Status: Acute (8) Seizures Assessment & Plan: Cont Keppra 500mg PEG BID for seizure prophylaxis Monitor for activity Status: Acute (9) Lower extremity edema Assessment & Plan: Improved Continue to monitor Gave Lasix 40mg once for mild generalized edema 06/04/17 Reduced feeds to 40cc/h Status: Acute (10) Constipation Assessment & Plan: As per nurse, patient had BM yesterday AM on 06/02/17 Lactulose 20gm PEG once on 06/01/17 Lactulose 30gm PEG once on 05/20/17 Status: Acute (11) Prophylactic measure Assessment & Plan: Pepcid 20 mg PEG BID Lovenox 30mg SC daily SCDs and offloading boots Continue to turn and reposition q2hrs Per dot net developer (05/02/17): tube feed goal: Isosource 1.5 @ 40cc/h 06/04/17- Decreased tube feeds to 40; goal of 60 PICC line discontinued 05/22/17 Continue to monitor medication administrations and clinical presentation weekly labs. Status: Acute
[2017-06-06] MEDS: Acetylcysteine 20% Inhal Soln (4ml) INH SCH ×4 (00:35→23:50)
[2017-06-06] MEDS: Albuterol-Ipratrop 3 mg / 0.5 (3 ml) UD INH SCH ×4 (00:36→23:50)
[2017-06-06] MEDS: Saccharomyces Boulardi 250 mg Cap PO SCH (12:09)
[2017-06-06] MEDS: Enoxaparin 30 mg Syringe SC SCH (12:10)
[2017-06-06] MEDS: guaiFENesin-Codeine 100-10mg/5ml Syrup (10ml) UD PO SCH (12:11)
--- NOTE | 2017-06-07 00:07 | CP.PCM.PN ---
Subjective - Date & Time of Evaluation Date of Evaluation: 06/07/17 Time of Evaluation: 00:25 - Subjective Subjective: Medicine Note (PGY 1): Dr. Chavis's service Patient was seen and examined at bedside in no acute distress. Patient is unable to respond to questions and review of systems due to anoxic brain injury that occurred in 05/2015. Unchanged clinically. Objective - Vital Signs/Intake and Output Vital Signs (last 24 hours): Temp Pulse Resp BP Pulse Ox 97.5 F L 88 20 119/86 99 06/06/17 23:36 06/06/17 23:36 06/06/17 23:36 06/06/17 23:36 06/06/17 23:36 Intake and Output: 06/06/17 06/07/17 18:59 06:59 Intake Total 600 680 Output Total 400 Balance 200 680 - Medications Medications: Current Medications Acetaminophen (Tylenol 650mg/20.3ml Solution Ud) 650 mg PEG Q6 PRN PRN Reason: Fever >100.4 F Last Admin: 04/07/17 02:45 Dose: 650 mg Acetylcysteine (Acetylcysteine 20%) 4 ml INH RQ8 [facility] Last Admin: 06/06/17 23:50 Dose: 4 ml Albuterol/Ipratropium (Duoneb 3 Mg/0.5 Mg (3 Ml) Ud) 3 ml INH RQ8 [facility] Last Admin: 06/06/17 23:50 Dose: 3 ml Aspirin (Aspirin Chewable) 81 mg PO DAILY [facility] Last Admin: 06/06/17 12:11 Dose: 81 mg Bethanechol Chloride (Urecholine) 50 mg PEG TID [facility] Last Admin: 06/06/17 18:03 Dose: 50 mg Carvedilol (Coreg) 3.125 mg PEG BID [facility] Last Admin: 06/06/17 18:03 Dose: Not Given Clopidogrel Bisulfate (Plavix) 75 mg PO DAILY [facility] Last Admin: 06/06/17 12:10 Dose: 75 mg Enoxaparin Sodium (Lovenox) 30 mg SC DAILY [facility] Last Admin: 06/06/17 12:10 Dose: 30 mg Famotidine (Pepcid) 20 mg PEG BID [facility] Last Admin: 06/06/17 18:03 Dose: 20 mg Finasteride (Proscar) 5 mg PO DAILY [facility] Last Admin: 06/06/17 12:16 Dose: 5 mg Guaifenesin/Codeine Phosphate (Guaifenesin/Codeine) 10 ml PO DAILY [facility] Last Admin: 06/06/17 12:11 Dose: 10 ml Levetiracetam (Keppra) 500 mg PO BID [facility] Last Admin: 06/06/17 18:03 Dose: 500 mg Saccharomyces Boulardii (Florastor) 250 mg PO DAILY [facility] Last Admin: 06/06/17 12:09 Dose: 250 mg Scopolamine (Transderm-Scop) 1 patch TD Q3D [facility] Last Admin: 06/04/17 10:13 Dose: 1 patch Tamsulosin HCl (Flomax) 0.4 mg PO DAILY [facility] Last Admin: 06/06/17 12:11 Dose: 0.4 mg - Labs Labs: 06/01/17 08:10 06/01/17 08:10 PT 10.6 SECONDS (9.7-12.2) 11/24/15 14:10 INR 1.0 11/24/15 14:10 APTT 25 SECONDS (21-34) 11/24/15 14:10 - Constitutional Appears: No Acute Distress - Head Exam Head Exam: ATRAUMATIC - ENT Exam ENT Exam: Mucous Membranes Moist, Normal Exam - Respiratory Exam Respiratory Exam: Rhonchi, NORMAL BREATHING PATTERN - Cardiovascular Exam Cardiovascular Exam: REGULAR RHYTHM, +S1, +S2 - GI/Abdominal Exam GI & Abdominal Exam: Normal Bowel Sounds - Extremities Exam Extremities Exam: Pedal Edema. absent: Full ROM - Neurological Exam Neurological Exam: absent: Alert, Awake, Oriented x3 - Psychiatric Exam Psychiatric exam: absent: Normal Affect, Normal Mood - Skin Skin Exam: Dry, Normal Color, Warm Assessment and Plan (1) Anoxic encephalopathy Assessment & Plan: Unchanged s/p cardiac arrest in 05/2015 no acute changes Pt has non spontaneous movements. continue current management. Continue tube feeds- at 40; goal of 60 Florastor 250mg PO TID via PEG Status: Chronic (2) Urinary tract infection Assessment & Plan: Patient afebrile Completed course of Amikacin and Meropenem. amikacin discontinued on 04/18 ( total 10), Meropenem (04/13) total 7 days Urine culture (04/06/17): + Proteus Mirabilis Urine [place] catheter in place Ordered- new condom catheter 05/22/17 Tylenol 650mg po q6 PEG PRN UA and Urine Cx ordered on 05/28/17 showed gram negative rods --> Proteus Mirabilis Started Primaxin 500mg IV Q6 on 05/30/17--> discontinued WBC count trending down 9/7 (05/30/17); 9.2 (05/29/17); 12.2 (05/28/17) CBC: F/U Status: Acute (3) Urinary retention Assessment & Plan: Take note condom cath not always securely in place so Is and Os are approximate as patient does wet bed Ordered- new condom catheter on 05/22/17 Flomax 0.4mg PEG daily Proscar 5mg PEG daily continue Bethanecol 50mg PEG TID- started after persistent retention and found to be effective. monitor I's and O's Check bladder scan for residual urine three times weekly Status: Acute (4) Watery stools Assessment & Plan: Recent completion of Merrem, Amikacin C. diff negative (04/26/17) Stool leukocytes negative (04/26/17) stool culture (04/26/17) negative Status: Resolved (5) Respiratory failure Assessment & Plan: Trach in place, continue daily monitoring for secretions. No change in management at this time. Continue with aggressive suctioning multiple times a day per respiratory therapist. Monitor for signs of respiratory distress Thick secretions Duoneb 3ml INH Q8 and Mucomyst 4ml INH Q8H Robitussin 100mg PEG Q12H Scopolamine 1 patch TD Q3D [facility] Repeat CXR on 05/28/17: linear increased consolidative changes in the right mid- lung zone and left lung base which may represent atelectasis and/or infiltrate. Question trace left pleural effusion. moderate venous congestion. cardiomegaly. degenerative changes in the spine and shoulders Status: Chronic (6) Sacral ulcer Assessment & Plan: Healed Cont with offloading/cushioning/turning Continue frequent turning, protective ointment and skin checks. Status: Resolved (7) History of coronary artery disease Assessment & Plan: s/p cardiac stents on 06/13/15 Cont ASA 81mg via PEG daily Cont Coreg 3.125mg PEG BID Cont Plavix 75mg PO daily Status: Acute (8) Seizures Assessment & Plan: Cont Keppra 500mg PEG BID for seizure prophylaxis Monitor for activity Status: Acute (9) Lower extremity edema Assessment & Plan: Improved Continue to monitor Gave Lasix 40mg once for mild generalized edema 06/04/17 Reduced feeds to 40cc/h Status: Acute (10) Constipation Assessment & Plan: As per nurse, patient had BM yesterday AM on 06/02/17 Lactulose 20gm PEG once on 06/01/17 Lactulose 30gm PEG once on 05/20/17 Status: Acute (11) Prophylactic measure Assessment & Plan: Pepcid 20 mg PEG BID Lovenox 30mg SC daily SCDs and offloading boots Continue to turn and reposition q2hrs Per install and repair technician (05/02/17): tube feed goal: Isosource 1.5 @ 40cc/h 06/04/17- Decreased tube feeds to 40; goal of 60 PICC line discontinued 05/22/17 Continue to monitor medication administrations and clinical presentation weekly labs. Status: Acute
[2017-06-07] MEDS: Acetylcysteine 20% Inhal Soln (4ml) INH SCH ×3 (08:43→23:50)
[2017-06-07] MEDS: Albuterol-Ipratrop 3 mg / 0.5 (3 ml) UD INH SCH ×3 (08:43→23:50)
[2017-06-07] MEDS: Saccharomyces Boulardi 250 mg Cap PO SCH (09:46)
[2017-06-07] MEDS: guaiFENesin-Codeine 100-10mg/5ml Syrup (10ml) UD PO SCH (09:47)
[2017-06-08 07:31] LABS: BASO # 0.1 K/uL (0.0-0.2); EOS # 0.6 K/uL (0.0-0.7); EOS % 6.2 % (0.0-4.0); HEMOGLOBIN 11.6 g/dL (12.0-18.0); LYMPH # 2.1 K/uL (1.0-4.3); LYMPH % 21.2 % (20.0-40.0); MEAN CELL VOLUME 89.3 fL (80.0-94.0); MEAN CORPUSCULAR HGB CONC 32.4 g/dL (33.0-37.0); MEAN PLATELET VOLUME 9.1 fL (7.2-11.7); MONO # 0.8 K/uL (0.0-0.8); MONO % 8.1 % (0.0-10.0); NEUT # 6.2 K/uL (1.8-7.0); NEUT % 63.5 % (50.0-75.0); RED CELL DISTRIBUTION WIDTH 16.9 % (11.5-14.5); WHITE BLOOD COUNT 9.7 K/uL (4.8-10.8)
[2017-06-08 07:57] LABS: ALBUMIN 3.3 g/dL (3.5-5.0)
[2017-06-08 08:00] LABS: AST/SGOT 27 U/L (17-59); GFR NON-AFRICAN AMERICAN > 60
[2017-06-08 08:01] LABS: ALB/GLOB RATIO 0.7 (1.0-2.1); ALT/SGPT 45 U/L (21-72); BLOOD UREA NITROGEN 13 mg/dL (9-20); CALCIUM 8.5 mg/dl (8.6-10.4)
[2017-06-08] MEDS: Albuterol-Ipratrop 3 mg / 0.5 (3 ml) UD INH SCH (08:55)
[2017-06-08] MEDS: Acetylcysteine 20% Inhal Soln (4ml) INH SCH ×2 (08:55→23:31)
[2017-06-08] MEDS: Saccharomyces Boulardi 250 mg Cap PO SCH (09:56)
[2017-06-08] MEDS: guaiFENesin-Codeine 100-10mg/5ml Syrup (10ml) UD PO SCH (09:56)
--- NOTE | 2017-06-08 15:49 | RAD ---
HISTORY: r/o fluid collection COMPARISON: 05/28/2017 FINDINGS: LUNGS: Linear scar/atelectasis at left base, unchanged. Linear scar/ atelectasis right parahilar, unchanged. No acute infiltrate. PLEURA: No significant pleural effusion identified, no pneumothorax apparent. CARDIOVASCULAR: Normal heart size. Tracheostomy tube noted. OSSEOUS STRUCTURES: No significant abnormalities. VISUALIZED UPPER ABDOMEN: Normal. OTHER FINDINGS: None. IMPRESSION: No acute infiltrate. No change from 05/28/2017.
--- NOTE | 2017-06-08 17:29 | CP.PCM.PN ---
<Ben Martell - Last Filed: 06/08/17 17:26> Subjective - Date & Time of Evaluation Date of Evaluation: 06/08/17 Time of Evaluation: 09:00 - Subjective Subjective: Medicine Progress Note- Dr. Ying's Service Patient was seen and examined at bedside in no acute distress. Patient is unable to respond to questions of review of systems due to an anoxic brain injury in 2014. Objective - Vital Signs/Intake and Output Vital Signs (last 24 hours): Temp Pulse Resp BP Pulse Ox 98.1 F 77 20 102/74 97 06/08/17 16:00 06/08/17 16:00 06/08/17 16:00 06/08/17 16:00 06/08/17 16:00 Intake and Output: 06/08/17 06/08/17 06:59 18:59 Intake Total 1200 500 Output Total 1000 Balance 200 500 - Medications Medications: Current Medications Acetaminophen (Tylenol 650mg/20.3ml Solution Ud) 650 mg PEG Q6 PRN PRN Reason: Fever >100.4 F Last Admin: 04/07/17 02:45 Dose: 650 mg Acetylcysteine (Acetylcysteine 20%) 4 ml INH RQ8 [facility] Last Admin: 06/08/17 08:55 Dose: 4 ml Aspirin (Aspirin Chewable) 81 mg PO DAILY [facility] Last Admin: 06/08/17 09:56 Dose: 81 mg Bethanechol Chloride (Urecholine) 50 mg PEG TID [facility] Last Admin: 06/08/17 13:24 Dose: 50 mg Carvedilol (Coreg) 3.125 mg PEG BID [facility] Last Admin: 06/08/17 09:56 Dose: 3.125 mg Clopidogrel Bisulfate (Plavix) 75 mg PO DAILY [facility] Last Admin: 06/08/17 09:56 Dose: 75 mg Famotidine (Pepcid) 20 mg PEG BID [facility] Last Admin: 06/08/17 09:57 Dose: 20 mg Finasteride (Proscar) 5 mg PO DAILY [facility] Last Admin: 06/08/17 09:56 Dose: 5 mg Guaifenesin/Codeine Phosphate (Guaifenesin/Codeine) 10 ml PO DAILY [facility] Last Admin: 06/08/17 09:56 Dose: 10 ml Levetiracetam (Keppra) 500 mg PO BID [facility] Last Admin: 06/08/17 09:57 Dose: 500 mg Saccharomyces Boulardii (Florastor) 250 mg PO DAILY [facility] Last Admin: 06/08/17 09:56 Dose: 250 mg Scopolamine (Transderm-Scop) 1 patch TD Q3D [facility] Last Admin: 06/07/17 09:47 Dose: 1 patch Tamsulosin HCl (Flomax) 0.4 mg PO DAILY [facility] Last Admin: 06/08/17 09:56 Dose: 0.4 mg - Labs Labs: 06/08/17 07:15 06/08/17 07:15 PT 10.6 SECONDS (9.7-12.2) 11/24/15 14:10 INR 1.0 11/24/15 14:10 APTT 25 SECONDS (21-34) 11/24/15 14:10 - Constitutional Appears: No Acute Distress - Head Exam Head Exam: NORMAL INSPECTION - Eye Exam Eye Exam: absent: EOMI, Normal appearance, PERRL - ENT Exam ENT Exam: Mucous Membranes Moist - Respiratory Exam Respiratory Exam: Rhonchi - Cardiovascular Exam Cardiovascular Exam: REGULAR RHYTHM, +S1, +S2. absent: Murmur - GI/Abdominal Exam GI & Abdominal Exam: Soft, Normal Bowel Sounds - Rectal Exam Rectal Exam: Deferred - Extremities Exam Extremities Exam: Normal Capillary Refill, Normal Inspection - Neurological Exam Neurological Exam: Altered - Psychiatric Exam Additional comments: patient is in a coma state - Skin Skin Exam: Dry, Intact, Normal Color, Warm Assessment and Plan - Assessment and Plan (Free Text) Assessment: (1) Anoxic encephalopathy Assessment & Plan: s/p cardiac arrest in 05/2015 no acute changes Pt has non spontaneous movements. continue current management. Continue tube feeds- at goal of 60 Florastor 250mg PO TID via PEG Status: Chronic (2) UTI (urinary tract infection) Assessment & Plan: Patient afebrile Completed course of Amikacin and Meropenem. amikacin discontinued on 04/18 ( total 10), Meropenem (04/13) total 7 days Urine culture (04/06/17): + Proteus Mirabilis Urine [place] catheter in place Ordered- new condom catheter 05/22/17 Tylenol 650mg po q6 PEG PRN UA and Urine Cx ordered on 05/28/17 showed gram negative rods --> Proteus Mirabilis Started Primaxin 500mg IV Q6 on 05/30/17--> will discontinue tomorrow WBC count trending down 9/7 (05/30/17); 9.2 (05/29/17); 12.2 (05/28/17) CBC: F/U Status: Resolved (3) Urinary retention Assessment & Plan: 06/08: urinary retention yesterday, was given 40mg lasix iv and patient was able to urinate through condom baker Take note condom cath not always securely in place so Is and Os are approximate as patient does wet bed Ordered- new condom catheter on 05/22/17 Flomax 0.4mg PEG daily Proscar 5mg PEG daily continue Bethanecol 50mg PEG TID- started after persistent retention and found to be effective. monitor I's and O's Check bladder scan for residual urine three times weekly Status: Acute (4) Watery stools Assessment & Plan: Recent completion of Merrem, Amikacin C. diff negative (04/26/17) Stool leukocytes negative (04/26/17) stool culture (04/26/17) negative Status: Resolved (5) Respiratory failure Assessment & Plan: Trach in place, continue daily monitoring for secretions. No change in management at this time. Continue with aggressive suctioning multiple times a day per respiratory therapist. Monitor for signs of respiratory distress Thick secretions Duoneb 3ml INH Q6 and Mucomyst 4ml INH Q6H Robitussin 100mg PEG Q12H Scopolamine 1 patch TD Q3D [facility] Repeat CXR on 05/28/17: linear increased consolidative changes in the right mid- lung zone and left lung base which may represent atelectasis and/or infiltrate. Question trace left pleural effusion. moderate venous congestion. cardiomegaly. degenerative changes in the spine and shoulders Status: Chronic (6) Sacral ulcer Assessment & Plan: Healed Cont with offloading/cushioning/turning Continue frequent turning, protective ointment and skin checks. Status: Resolved (7) History of coronary artery disease Assessment & Plan: s/p cardiac stents on 06/13/15 Cont ASA 81mg via PEG daily Cont Coreg 3.125mg PEG BID Cont Plavix 75mg PO daily Status: Acute (8) Seizures Assessment & Plan: Cont Keppra 500mg PEG BID for seizure prophylaxis Monitor for activity Status: Acute (9) Lower extremity edema Assessment & Plan: Improved Continue to monitor Status: Acute (10) Constipation Assessment & Plan: Lactulose 20gm PEG once on 06/01/17 Lactulose 30gm PEG once on 05/20/17 Status: Acute (11) Prophylactic measure Assessment & Plan: Pepcid 20 mg PEG BID Lovenox 30mg SC daily SCDs and offloading boots continue to turn and reposition q2hrs Feeds increased to 50cc/hr. Per shank cementer hand (05/02/17): tube feed goal: Isosource 1.5 @ 50cc/h Will continue tube feeds @ 50 with goal of 60cc/h PICC line discontinued 05/22/17 Continue to monitor medication administrations and clinical presentation weekly labs. Status: Acute <Donnell Ying M - Last Filed: 06/09/17 17:45> Objective - Vital Signs/Intake and Output Vital Signs (last 24 hours): Temp Pulse Resp BP Pulse Ox 98.4 F 70 20 110/75 96 06/09/17 16:00 06/09/17 16:00 06/09/17 16:00 06/09/17 16:00 06/09/17 16:00 Intake and Output: 06/09/17 06/09/17 06:59 18:59 Intake Total 200 Output Total 700 100 Balance -500 -100 - Medications Medications: Current Medications Acetaminophen (Tylenol 650mg/20.3ml Solution Ud) 650 mg PEG Q6 PRN PRN Reason: Fever >100.4 F Last Admin: 04/07/17 02:45 Dose: 650 mg Acetylcysteine (Acetylcysteine 20%) 4 ml INH RQ8 [facility] Last Admin: 06/09/17 08:07 Dose: Not Given Carvedilol (Coreg) 3.125 mg PEG BID [facility] Last Admin: 06/09/17 10:10 Dose: 3.125 mg Famotidine (Pepcid) 20 mg PEG BID [facility] Last Admin: 06/09/17 10:12 Dose: 20 mg Guaifenesin/Codeine Phosphate (Guaifenesin/Codeine) 10 ml PO DAILY [facility] Last Admin: 06/09/17 10:09 Dose: 10 ml - Labs Labs: 06/08/17 07:15 06/08/17 07:15 PT 10.6 SECONDS (9.7-12.2) 11/24/15 14:10 INR 1.0 11/24/15 14:10 APTT 25 SECONDS (21-34) 11/24/15 14:10 Attending/Attestation - Attestation I have personally seen and examined this patient.: Yes I have fully participated in the care of the patient.: Yes I have reviewed all pertinent clinical information, including history, physical exam and plan: Yes Notes (Text): 06/09/17 17:44 Patient was seen and examined at bedside with the resident Continue current medical management I discussed the plan of care with the resident and agree with the history and physical and assessment/plan by the resident.
[2017-06-09] MEDS: Acetylcysteine 20% Inhal Soln (4ml) INH SCH ×3 (07:15→19:33)
[2017-06-09] MEDS: guaiFENesin-Codeine 100-10mg/5ml Syrup (10ml) UD PO SCH (10:09)
[2017-06-09] MEDS: Saccharomyces Boulardi 250 mg Cap PO SCH (10:10)
[2017-06-10] MEDS: Acetylcysteine 20% Inhal Soln (4ml) INH SCH (07:21)
[2017-06-10] MEDS: guaiFENesin-Codeine 100-10mg/5ml Syrup (10ml) UD PO SCH (09:59)
[2017-06-10] MEDS: Saccharomyces Boulardi 250 mg Cap PO SCH (09:59)
--- NOTE | 2017-06-10 14:02 | CP.PCM.PN ---
<Ben Martell R - Last Filed: 06/10/17 13:59> Subjective - Date & Time of Evaluation Date of Evaluation: 06/10/17 Time of Evaluation: 07:45 - Subjective Subjective: PGY-[address] Ying Patient was seen and examined at bedside. Nursing reports no acute events overnight. Clinically same. Patient has non-spontaneous, non directed movements. ROS unobtainable due to clinical condition. Objective - Vital Signs/Intake and Output Vital Signs (last 24 hours): Temp Pulse Resp BP Pulse Ox 99.0 F 83 20 104/71 100 06/10/17 07:45 06/10/17 07:45 06/10/17 07:45 06/10/17 07:45 06/10/17 07:45 Intake and Output: 06/10/17 06/10/17 06:59 18:59 Intake Total 600 600 Output Total 800 700 Balance -200 -100 - Medications Medications: Current Medications Acetaminophen (Tylenol 650mg/20.3ml Solution Ud) 650 mg PEG Q6 PRN PRN Reason: Fever >100.4 F Last Admin: 04/07/17 02:45 Dose: 650 mg Acetylcysteine (Acetylcysteine 20%) 4 ml INH RQ8 [facility] Last Admin: 06/10/17 07:21 Dose: Not Given Aspirin (Aspirin Chewable) 81 mg PO DAILY [facility] Last Admin: 06/10/17 09:58 Dose: 81 mg Bethanechol Chloride (Urecholine) 50 mg PEG TID [facility] Last Admin: 06/10/17 13:49 Dose: 50 mg Carvedilol (Coreg) 3.125 mg PEG BID [facility] Last Admin: 06/10/17 09:58 Dose: 3.125 mg Clopidogrel Bisulfate (Plavix) 75 mg PO DAILY [facility] Last Admin: 06/10/17 09:59 Dose: 75 mg Famotidine (Pepcid) 20 mg PEG BID [facility] Last Admin: 06/10/17 09:59 Dose: 20 mg Finasteride (Proscar) 5 mg PO DAILY [facility] Last Admin: 06/10/17 09:58 Dose: 5 mg Guaifenesin/Codeine Phosphate (Guaifenesin/Codeine) 10 ml PO DAILY [facility] Last Admin: 06/10/17 09:59 Dose: 10 ml Levetiracetam (Keppra) 500 mg PO BID [facility] Last Admin: 06/10/17 09:58 Dose: 500 mg Saccharomyces Boulardii (Florastor) 250 mg PO DAILY [facility] Last Admin: 06/10/17 09:59 Dose: 250 mg Scopolamine (Transderm-Scop) 1 patch TD Q3D [facility] Last Admin: 06/09/17 21:30 Dose: 1 patch Tamsulosin HCl (Flomax) 0.4 mg PO DAILY [facility] Last Admin: 06/10/17 09:59 Dose: 0.4 mg - Labs Labs: 06/08/17 07:15 06/08/17 07:15 PT 10.6 SECONDS (9.7-12.2) 11/24/15 14:10 INR 1.0 11/24/15 14:10 APTT 25 SECONDS (21-34) 11/24/15 14:10 - Head Exam Head Exam: ATRAUMATIC, NORMAL INSPECTION - Eye Exam Pupil Exam: NORMAL ACCOMODATION - ENT Exam ENT Exam: Mucous Membranes Moist - Neck Exam Additional comments: Trach collar in place, white thick secretions noted - Respiratory Exam Respiratory Exam: Clear to Ausculation Bilateral, NORMAL BREATHING PATTERN - GI/Abdominal Exam GI & Abdominal Exam: Soft, Normal Bowel Sounds Additional comments: PEG in tact; no redness or discharge visualized - Rectal Exam Rectal Exam: Deferred - Extremities Exam Extremities Exam: Normal Capillary Refill, Normal Inspection Additional comments: boots in place - Skin Skin Exam: Dry, Intact, Normal Color, Warm Assessment and Plan - Assessment and Plan (Free Text) Assessment: (1) Anoxic encephalopathy Assessment & Plan: s/p cardiac arrest in 05/2015 no acute changes Pt has non spontaneous movements. continue current management. Continue tube feeds- at goal of 60 Florastor 250mg PO TID via PEG Status: Chronic (2) UTI (urinary tract infection) Assessment & Plan: Patient afebrile Completed course of Amikacin and Meropenem. amikacin discontinued on 04/18 ( total 10), Meropenem (04/13) total 7 days Urine culture (04/06/17): + Proteus Mirabilis Urine [place] catheter in place Ordered- new condom catheter 05/22/17 Tylenol 650mg po q6 PEG PRN UA and Urine Cx ordered on 05/28/17 showed gram negative rods --> Proteus Mirabilis Started Primaxin 500mg IV Q6 on 05/30/17--> will discontinue tomorrow WBC count trending down 9/7 (05/30/17); 9.2 (05/29/17); 12.2 (05/28/17) CBC: F/U Status: Resolved (3) Urinary retention Assessment & Plan: 06/08: urinary retention yesterday, was given 40mg lasix iv and patient was able to urinate through condom baker Take note condom cath not always securely in place so Is and Os are approximate as patient does wet bed Ordered- new condom catheter on 05/22/17 Flomax 0.4mg PEG daily Proscar 5mg PEG daily continue Bethanecol 50mg PEG TID- started after persistent retention and found to be effective. monitor I's and O's Check bladder scan for residual urine three times weekly Status: Acute (4) Watery stools Assessment & Plan: Recent completion of Merrem, Amikacin C. diff negative (04/26/17) Stool leukocytes negative (04/26/17) stool culture (04/26/17) negative Status: Resolved (5) Respiratory failure Assessment & Plan: Trach in place, continue daily monitoring for secretions. No change in management at this time. Continue with aggressive suctioning multiple times a day per respiratory therapist. Monitor for signs of respiratory distress Thick secretions Duoneb 3ml INH Q6 and Mucomyst 4ml INH Q6H Robitussin 100mg PEG Q12H Scopolamine 1 patch TD Q3D JOO Repeat CXR on 05/28/17: linear increased consolidative changes in the right mid- lung zone and left lung base which may represent atelectasis and/or infiltrate. Question trace left pleural effusion. moderate venous congestion. cardiomegaly. degenerative changes in the spine and shoulders Status: Chronic (6) Sacral ulcer Assessment & Plan: Healed Cont with offloading/cushioning/turning Continue frequent turning, protective ointment and skin checks. Status: Resolved (7) History of coronary artery disease Assessment & Plan: s/p cardiac stents on 06/13/15 Cont ASA 81mg via PEG daily Cont Coreg 3.125mg PEG BID Cont Plavix 75mg PO daily Status: Acute (8) Seizures Assessment & Plan: Cont Keppra 500mg PEG BID for seizure prophylaxis Monitor for activity Status: Acute (9) Lower extremity edema Assessment & Plan: Improved Continue to monitor Status: Acute (10) Constipation Assessment & Plan: Lactulose 20gm PEG once on 06/01/17 Lactulose 30gm PEG once on 05/20/17 Status: Acute (11) Prophylactic measure Assessment & Plan: Pepcid 20 mg PEG BID Lovenox 30mg SC daily SCDs and offloading boots continue to turn and reposition q2hrs Feeds increased to 50cc/hr. Per glass beveller (05/02/17): tube feed goal: Isosource 1.5 @ 50cc/h Will continue tube feeds @ 50 with goal of 60cc/h PICC line discontinued 05/22/17 Continue to monitor medication administrations and clinical presentation weekly labs. Status: Acute <Donnell Ying M - Last Filed: 06/11/17 18:15> Objective - Vital Signs/Intake and Output Vital Signs (last 24 hours): Temp Pulse Resp BP Pulse Ox 98.5 F 73 20 104/69 97 06/11/17 15:53 06/11/17 15:53 06/11/17 15:53 06/11/17 15:53 06/11/17 15:53 Intake and Output: 06/11/17 06/11/17 06:59 18:59 Intake Total 1300 700 Output Total 600 1000 Balance 700 -300 - Medications Medications: Current Medications Acetaminophen (Tylenol 650mg/20.3ml Solution Ud) 650 mg PEG Q6 PRN PRN Reason: Fever >100.4 F Last Admin: 04/07/17 02:45 Dose: 650 mg Acetylcysteine (Acetylcysteine 20%) 4 ml INH RQ8 [facility] Last Admin: 06/11/17 08:10 Dose: Not Given Aspirin (Aspirin Chewable) 81 mg PO DAILY [facility] Last Admin: 06/11/17 10:16 Dose: 81 mg Bethanechol Chloride (Urecholine) 50 mg PEG TID [facility] Last Admin: 06/11/17 17:58 Dose: 50 mg Carvedilol (Coreg) 3.125 mg PEG BID [facility] Last Admin: 06/11/17 17:58 Dose: 3.125 mg Clopidogrel Bisulfate (Plavix) 75 mg PO DAILY [facility] Last Admin: 06/11/17 10:17 Dose: 75 mg Famotidine (Pepcid) 20 mg PEG BID [facility] Last Admin: 06/11/17 17:58 Dose: 20 mg Finasteride (Proscar) 5 mg PO DAILY [facility] Last Admin: 06/11/17 10:16 Dose: 5 mg Guaifenesin/Codeine Phosphate (Guaifenesin/Codeine) 10 ml PO DAILY [facility] Last Admin: 06/11/17 10:16 Dose: 10 ml Levetiracetam (Keppra) 500 mg PO BID [facility] Last Admin: 06/11/17 17:59 Dose: 500 mg Saccharomyces Boulardii (Florastor) 250 mg PO DAILY [facility] Last Admin: 06/11/17 10:16 Dose: 250 mg Scopolamine (Transderm-Scop) 1 patch TD Q3D [facility] Last Admin: 06/09/17 21:30 Dose: 1 patch Tamsulosin HCl (Flomax) 0.4 mg PO DAILY [facility] Last Admin: 06/11/17 10:16 Dose: 0.4 mg - Labs Labs: 06/08/17 07:15 06/08/17 07:15 PT 10.6 SECONDS (9.7-12.2) 11/24/15 14:10 INR 1.0 11/24/15 14:10 APTT 25 SECONDS (21-34) 11/24/15 14:10 Attending/Attestation - Attestation I have personally seen and examined this patient.: Yes I have fully participated in the care of the patient.: Yes I have reviewed all pertinent clinical information, including history, physical exam and plan: Yes Notes (Text): 06/11/17 18:14 Patient was seen and examined at bedside Continue current medical management Discussed the plan of care with the resident and agree with the assessment and plan documented.
--- NOTE | 2017-06-11 07:37 | CP.PCM.PN ---
<Ben Martell R - Last Filed: 06/11/17 07:34> Subjective - Date & Time of Evaluation Date of Evaluation: 06/11/17 Time of Evaluation: 07:50 - Subjective Subjective: PGY-[address] Ying Patient S and E at bedside. Nursing reports no acute events overnight. Clinically same. Patient has non-spontaneous, non directed movements. ROS unobtainable due to clinical condition. Objective - Vital Signs/Intake and Output Vital Signs (last 24 hours): Temp Pulse Resp BP Pulse Ox 98.5 F 85 20 111/71 99 06/10/17 23:55 06/10/17 23:55 06/10/17 23:55 06/10/17 23:55 06/10/17 23:55 Intake and Output: 06/11/17 06/11/17 06:59 18:59 Intake Total 1300 Output Total 600 Balance 700 - Medications Medications: Current Medications Acetaminophen (Tylenol 650mg/20.3ml Solution Ud) 650 mg PEG Q6 PRN PRN Reason: Fever >100.4 F Last Admin: 04/07/17 02:45 Dose: 650 mg Acetylcysteine (Acetylcysteine 20%) 4 ml INH RQ8 [facility] Last Admin: 06/10/17 07:21 Dose: Not Given Aspirin (Aspirin Chewable) 81 mg PO DAILY [facility] Last Admin: 06/10/17 09:58 Dose: 81 mg Bethanechol Chloride (Urecholine) 50 mg PEG TID [facility] Last Admin: 06/10/17 17:26 Dose: 50 mg Carvedilol (Coreg) 3.125 mg PEG BID [facility] Last Admin: 06/10/17 17:26 Dose: 3.125 mg Clopidogrel Bisulfate (Plavix) 75 mg PO DAILY [facility] Last Admin: 06/10/17 09:59 Dose: 75 mg Famotidine (Pepcid) 20 mg PEG BID [facility] Last Admin: 06/10/17 17:25 Dose: 20 mg Finasteride (Proscar) 5 mg PO DAILY [facility] Last Admin: 06/10/17 09:58 Dose: 5 mg Guaifenesin/Codeine Phosphate (Guaifenesin/Codeine) 10 ml PO DAILY [facility] Last Admin: 06/10/17 09:59 Dose: 10 ml Levetiracetam (Keppra) 500 mg PO BID [facility] Last Admin: 06/10/17 17:27 Dose: 500 mg Saccharomyces Boulardii (Florastor) 250 mg PO DAILY [facility] Last Admin: 06/10/17 09:59 Dose: 250 mg Scopolamine (Transderm-Scop) 1 patch TD Q3D [facility] Last Admin: 06/09/17 21:30 Dose: 1 patch Tamsulosin HCl (Flomax) 0.4 mg PO DAILY [facility] Last Admin: 06/10/17 09:59 Dose: 0.4 mg - Labs Labs: 06/08/17 07:15 06/08/17 07:15 PT 10.6 SECONDS (9.7-12.2) 11/24/15 14:10 INR 1.0 11/24/15 14:10 APTT 25 SECONDS (21-34) 11/24/15 14:10 - Head Exam Head Exam: NORMAL INSPECTION - Eye Exam Eye Exam: Normal appearance - ENT Exam ENT Exam: Mucous Membranes Moist - Neck Exam Additional comments: Trach collar in place, no abnormal secretions noted - Respiratory Exam Respiratory Exam: Clear to Ausculation Bilateral, NORMAL BREATHING PATTERN - Cardiovascular Exam Cardiovascular Exam: REGULAR RHYTHM, RRR, +S1, +S2 - GI/Abdominal Exam GI & Abdominal Exam: Soft, Normal Bowel Sounds Additional comments: PEG in tact; no redness or discharge visualized - Rectal Exam Rectal Exam: Deferred - Extremities Exam Additional comments: boots in place - Skin Skin Exam: Dry, Intact, Normal Color, Warm Assessment and Plan - Assessment and Plan (Free Text) Assessment: (1) Anoxic encephalopathy Assessment & Plan: s/p cardiac arrest in 05/2015 no acute changes Pt has non spontaneous movements. continue current management. Continue tube feeds- at goal of 60 Florastor 250mg PO TID via PEG Status: Chronic (2) UTI (urinary tract infection) Assessment & Plan: Patient afebrile Completed course of Amikacin and Meropenem. amikacin discontinued on 04/18 ( total 10), Meropenem (04/13) total 7 days Urine culture (04/06/17): + Proteus Mirabilis Urine [place] catheter in place Ordered- new condom catheter 05/22/17 Tylenol 650mg po q6 PEG PRN UA and Urine Cx ordered on 05/28/17 showed gram negative rods --> Proteus Mirabilis Started Primaxin 500mg IV Q6 on 05/30/17--> will discontinue tomorrow WBC count trending down 9/7 (05/30/17); 9.2 (05/29/17); 12.2 (05/28/17) CBC: F/U Status: Resolved (3) Urinary retention Assessment & Plan: 06/08: urinary retention yesterday, was given 40mg lasix iv and patient was able to urinate through condom baker Take note condom cath not always securely in place so Is and Os are approximate as patient does wet bed Ordered- new condom catheter on 05/22/17 Flomax 0.4mg PEG daily Proscar 5mg PEG daily continue Bethanecol 50mg PEG TID- started after persistent retention and found to be effective. monitor I's and O's Check bladder scan for residual urine three times weekly Status: Acute (4) Watery stools Assessment & Plan: Recent completion of Merrem, Amikacin C. diff negative (04/26/17) Stool leukocytes negative (04/26/17) stool culture (04/26/17) negative Status: Resolved (5) Respiratory failure Assessment & Plan: Trach in place, continue daily monitoring for secretions. No change in management at this time. Continue with aggressive suctioning multiple times a day per respiratory therapist. Monitor for signs of respiratory distress Thick secretions Duoneb 3ml INH Q6 and Mucomyst 4ml INH Q6H Robitussin 100mg PEG Q12H Scopolamine 1 patch TD Q3D JOO Repeat CXR on 05/28/17: linear increased consolidative changes in the right mid- lung zone and left lung base which may represent atelectasis and/or infiltrate. Question trace left pleural effusion. moderate venous congestion. cardiomegaly. degenerative changes in the spine and shoulders Status: Chronic (6) Sacral ulcer Assessment & Plan: Healed Cont with offloading/cushioning/turning Continue frequent turning, protective ointment and skin checks. Status: Resolved (7) History of coronary artery disease Assessment & Plan: s/p cardiac stents on 06/13/15 Cont ASA 81mg via PEG daily Cont Coreg 3.125mg PEG BID Cont Plavix 75mg PO daily Status: Acute (8) Seizures Assessment & Plan: Cont Keppra 500mg PEG BID for seizure prophylaxis Monitor for activity Status: Acute (9) Lower extremity edema Assessment & Plan: Improved Continue to monitor Status: Acute (10) Constipation Assessment & Plan: Lactulose 20gm PEG once on 06/01/17 Lactulose 30gm PEG once on 05/20/17 Status: Acute (11) Prophylactic measure Assessment & Plan: Pepcid 20 mg PEG BID Lovenox 30mg SC daily SCDs and offloading boots continue to turn and reposition q2hrs Feeds increased to 50cc/hr. Per trimmer machine (05/02/17): tube feed goal: Isosource 1.5 @ 50cc/h Will continue tube feeds @ 50 with goal of 60cc/h PICC line discontinued 05/22/17 Continue to monitor medication administrations and clinical presentation weekly labs. Status: Acute <Donnell Ying M - Last Filed: 06/12/17 14:58> Objective - Vital Signs/Intake and Output Vital Signs (last 24 hours): Temp Pulse Resp BP Pulse Ox 98.5 F 84 20 125/80 99 06/12/17 07:40 06/12/17 07:40 06/12/17 07:40 06/12/17 07:40 06/12/17 07:40 Intake and Output: 06/12/17 06/12/17 06:59 18:59 Intake Total 1400 Output Total 700 500 Balance 700 -500 - Medications Medications: Current Medications Acetaminophen (Tylenol 650mg/20.3ml Solution Ud) 650 mg PEG Q6 PRN PRN Reason: Fever >100.4 F Last Admin: 04/07/17 02:45 Dose: 650 mg Acetylcysteine (Acetylcysteine 20%) 4 ml INH RQ8 [facility] Last Admin: 06/11/17 23:48 Dose: Not Given Aspirin (Aspirin Chewable) 81 mg PO DAILY [facility] Last Admin: 06/12/17 10:53 Dose: 81 mg Bethanechol Chloride (Urecholine) 50 mg PEG TID [facility] Last Admin: 06/12/17 13:24 Dose: 50 mg Carvedilol (Coreg) 3.125 mg PEG BID [facility] Last Admin: 06/12/17 10:53 Dose: 3.125 mg Clopidogrel Bisulfate (Plavix) 75 mg PO DAILY [facility] Last Admin: 06/12/17 10:53 Dose: 75 mg Famotidine (Pepcid) 20 mg PEG BID [facility] Last Admin: 06/12/17 10:53 Dose: 20 mg Finasteride (Proscar) 5 mg PO DAILY [facility] Last Admin: 06/12/17 10:53 Dose: 5 mg Guaifenesin/Codeine Phosphate (Guaifenesin/Codeine) 10 ml PO DAILY [facility] Last Admin: 06/12/17 10:53 Dose: 10 ml Levetiracetam (Keppra) 500 mg PO BID [facility] Last Admin: 06/12/17 10:53 Dose: 500 mg Saccharomyces Boulardii (Florastor) 250 mg PO DAILY [facility] Last Admin: 06/12/17 10:53 Dose: 250 mg Scopolamine (Transderm-Scop) 1 patch TD Q3D [facility] Last Admin: 06/09/17 21:30 Dose: 1 patch Tamsulosin HCl (Flomax) 0.4 mg PO DAILY [facility] Last Admin: 06/12/17 10:53 Dose: 0.4 mg - Labs Labs: 06/08/17 07:15 06/08/17 07:15 PT 10.6 SECONDS (9.7-12.2) 11/24/15 14:10 INR 1.0 11/24/15 14:10 APTT 25 SECONDS (21-34) 11/24/15 14:10 Attending/Attestation - Attestation I have personally seen and examined this patient.: Yes I have fully participated in the care of the patient.: Yes I have reviewed all pertinent clinical information, including history, physical exam and plan: Yes Notes (Text): 06/12/17 14:57 Patient was seen and examined at bedside with the resident This is no change in clinical condition We will continue current medical management. I discussed the plan of care with the resident and agree with the history and physical and assessment/plan documented
[2017-06-11] MEDS: Acetylcysteine 20% Inhal Soln (4ml) INH SCH ×3 (08:10→23:48)
[2017-06-11] MEDS: guaiFENesin-Codeine 100-10mg/5ml Syrup (10ml) UD PO SCH (10:16)
[2017-06-11] MEDS: Saccharomyces Boulardi 250 mg Cap PO SCH (10:16)
[2017-06-12] MEDS: Saccharomyces Boulardi 250 mg Cap PO SCH (10:53)
[2017-06-12] MEDS: guaiFENesin-Codeine 100-10mg/5ml Syrup (10ml) UD PO SCH (10:53)
--- NOTE | 2017-06-12 13:43 | CP.PCM.PN ---
<Ben Martell R - Last Filed: 06/12/17 13:40> Subjective - Date & Time of Evaluation Date of Evaluation: 06/12/17 Time of Evaluation: 06:45 - Subjective Subjective: Medicine Progress Note- Dr. Ying's Service Patient was seen and examined at bedside in no acute distress. As per the nurse , the patient had a bowel movement yesterday. Patient is unable to answer questions or review of systems due to an anoxic brain injury (05/2015). Objective - Vital Signs/Intake and Output Vital Signs (last 24 hours): Temp Pulse Resp BP Pulse Ox 98.5 F 84 20 125/80 99 06/12/17 07:40 06/12/17 07:40 06/12/17 07:40 06/12/17 07:40 06/12/17 07:40 Intake and Output: 06/12/17 06/12/17 06:59 18:59 Intake Total 1400 Output Total 700 Balance 700 - Medications Medications: Current Medications Acetaminophen (Tylenol 650mg/20.3ml Solution Ud) 650 mg PEG Q6 PRN PRN Reason: Fever >100.4 F Last Admin: 04/07/17 02:45 Dose: 650 mg Acetylcysteine (Acetylcysteine 20%) 4 ml INH RQ8 [facility] Last Admin: 06/11/17 23:48 Dose: Not Given Aspirin (Aspirin Chewable) 81 mg PO DAILY [facility] Last Admin: 06/12/17 10:53 Dose: 81 mg Bethanechol Chloride (Urecholine) 50 mg PEG TID [facility] Last Admin: 06/12/17 13:24 Dose: 50 mg Carvedilol (Coreg) 3.125 mg PEG BID [facility] Last Admin: 06/12/17 10:53 Dose: 3.125 mg Clopidogrel Bisulfate (Plavix) 75 mg PO DAILY [facility] Last Admin: 06/12/17 10:53 Dose: 75 mg Famotidine (Pepcid) 20 mg PEG BID [facility] Last Admin: 06/12/17 10:53 Dose: 20 mg Finasteride (Proscar) 5 mg PO DAILY [facility] Last Admin: 06/12/17 10:53 Dose: 5 mg Guaifenesin/Codeine Phosphate (Guaifenesin/Codeine) 10 ml PO DAILY [facility] Last Admin: 06/12/17 10:53 Dose: 10 ml Levetiracetam (Keppra) 500 mg PO BID [facility] Last Admin: 06/12/17 10:53 Dose: 500 mg Saccharomyces Boulardii (Florastor) 250 mg PO DAILY [facility] Last Admin: 06/12/17 10:53 Dose: 250 mg Scopolamine (Transderm-Scop) 1 patch TD Q3D [facility] Last Admin: 06/09/17 21:30 Dose: 1 patch Tamsulosin HCl (Flomax) 0.4 mg PO DAILY [facility] Last Admin: 06/12/17 10:53 Dose: 0.4 mg - Labs Labs: 06/08/17 07:15 06/08/17 07:15 PT 10.6 SECONDS (9.7-12.2) 11/24/15 14:10 INR 1.0 11/24/15 14:10 APTT 25 SECONDS (21-34) 11/24/15 14:10 - Constitutional Appears: No Acute Distress - Head Exam Head Exam: NORMAL INSPECTION - Eye Exam Eye Exam: Normal appearance - ENT Exam ENT Exam: Mucous Membranes Moist - Neck Exam Neck Exam: Normal Inspection Additional comments: Trach collar in place, no abnormal secretions noted - Respiratory Exam Respiratory Exam: Clear to Ausculation Bilateral, NORMAL BREATHING PATTERN - Cardiovascular Exam Cardiovascular Exam: REGULAR RHYTHM, RRR, +S1, +S2 - GI/Abdominal Exam Additional comments: PEG in tact; no redness or discharge visualized - Rectal Exam Rectal Exam: Deferred - Extremities Exam Extremities Exam: Normal Capillary Refill Additional comments: boots in place - Neurological Exam Additional comments: in coma state since 2014 - Skin Skin Exam: Normal Color Assessment and Plan - Assessment and Plan (Free Text) Assessment: (1) Anoxic encephalopathy Assessment & Plan: s/p cardiac arrest in 05/2015 no acute changes Pt has non spontaneous movements. continue current management. Continue tube feeds- at goal of 60 Florastor 250mg PO TID via PEG Status: Chronic (2) UTI (urinary tract infection) Assessment & Plan: Patient afebrile Completed course of Amikacin and Meropenem. amikacin discontinued on 04/18 ( total 10), Meropenem (04/13) total 7 days Urine culture (04/06/17): + Proteus Mirabilis Urine [place] catheter in place Ordered- new condom catheter 05/22/17 Tylenol 650mg po q6 PEG PRN UA and Urine Cx ordered on 05/28/17 showed gram negative rods --> Proteus Mirabilis Started Primaxin 500mg IV Q6 on 05/30/17--> will discontinue tomorrow WBC count trending down 9/7 (05/30/17); 9.2 (05/29/17); 12.2 (05/28/17) CBC: F/U Status: Resolved (3) Urinary retention Assessment & Plan: 06/08: urinary retention yesterday, was given 40mg lasix iv and patient was able to urinate through condom baker Take note condom cath not always securely in place so Is and Os are approximate as patient does wet bed Ordered- new condom catheter on 05/22/17 Flomax 0.4mg PEG daily Proscar 5mg PEG daily continue Bethanecol 50mg PEG TID- started after persistent retention and found to be effective. monitor I's and O's Check bladder scan for residual urine three times weekly Status: Acute (4) Watery stools Assessment & Plan: Recent completion of Merrem, Amikacin C. diff negative (04/26/17) Stool leukocytes negative (04/26/17) stool culture (04/26/17) negative Status: Resolved (5) Respiratory failure Assessment & Plan: Trach in place, continue daily monitoring for secretions. No change in management at this time. Continue with aggressive suctioning multiple times a day per respiratory therapist. Monitor for signs of respiratory distress Thick secretions Duoneb 3ml INH Q6 and Mucomyst 4ml INH Q6H Robitussin 100mg PEG Q12H Scopolamine 1 patch TD Q3D JOO Repeat CXR on 05/28/17: linear increased consolidative changes in the right mid- lung zone and left lung base which may represent atelectasis and/or infiltrate. Question trace left pleural effusion. moderate venous congestion. cardiomegaly. degenerative changes in the spine and shoulders Status: Chronic (6) Sacral ulcer Assessment & Plan: Healed Cont with offloading/cushioning/turning Continue frequent turning, protective ointment and skin checks. Status: Resolved (7) History of coronary artery disease Assessment & Plan: s/p cardiac stents on 06/13/15 Cont ASA 81mg via PEG daily Cont Coreg 3.125mg PEG BID Cont Plavix 75mg PO daily Status: Acute (8) Seizures Assessment & Plan: Cont Keppra 500mg PEG BID for seizure prophylaxis Monitor for activity Status: Acute (9) Lower extremity edema Assessment & Plan: Improved Continue to monitor Status: Acute (10) Constipation Assessment & Plan: Lactulose 20gm PEG once on 06/01/17 Lactulose 30gm PEG once on 05/20/17 Status: Acute (11) Prophylactic measure Assessment & Plan: Pepcid 20 mg PEG BID Lovenox 30mg SC daily SCDs and offloading boots continue to turn and reposition q2hrs Feeds increased to 50cc/hr. Per marketing intern (05/02/17): tube feed goal: Isosource 1.5 @ 50cc/h Will continue tube feeds @ 50 with goal of 60cc/h PICC line discontinued 05/22/17 Continue to monitor medication administrations and clinical presentation weekly labs. Status: Acute <Donnell Ying M - Last Filed: 06/12/17 18:27> Objective - Vital Signs/Intake and Output Vital Signs (last 24 hours): Temp Pulse Resp BP Pulse Ox 98.7 F 82 20 93/59 L 94 L 06/12/17 15:00 06/12/17 15:00 06/12/17 15:00 06/12/17 15:00 06/12/17 15:00 Intake and Output: 06/12/17 06/12/17 06:59 18:59 Intake Total 1400 700 Output Total 700 500 Balance 700 200 - Medications Medications: Current Medications Acetaminophen (Tylenol 650mg/20.3ml Solution Ud) 650 mg PEG Q6 PRN PRN Reason: Fever >100.4 F Last Admin: 04/07/17 02:45 Dose: 650 mg Acetylcysteine (Acetylcysteine 20%) 4 ml INH RQ8 [facility] Last Admin: 06/11/17 23:48 Dose: Not Given Aspirin (Aspirin Chewable) 81 mg PO DAILY [facility] Last Admin: 06/12/17 10:53 Dose: 81 mg Bethanechol Chloride (Urecholine) 50 mg PEG TID [facility] Last Admin: 06/12/17 13:24 Dose: 50 mg Carvedilol (Coreg) 3.125 mg PEG BID [facility] Last Admin: 06/12/17 10:53 Dose: 3.125 mg Clopidogrel Bisulfate (Plavix) 75 mg PO DAILY [facility] Last Admin: 06/12/17 10:53 Dose: 75 mg Famotidine (Pepcid) 20 mg PEG BID [facility] Last Admin: 06/12/17 10:53 Dose: 20 mg Finasteride (Proscar) 5 mg PO DAILY [facility] Last Admin: 06/12/17 10:53 Dose: 5 mg Guaifenesin/Codeine Phosphate (Guaifenesin/Codeine) 10 ml PO DAILY [facility] Last Admin: 06/12/17 10:53 Dose: 10 ml Levetiracetam (Keppra) 500 mg PO BID [facility] Last Admin: 06/12/17 10:53 Dose: 500 mg Saccharomyces Boulardii (Florastor) 250 mg PO DAILY [facility] Last Admin: 06/12/17 10:53 Dose: 250 mg Scopolamine (Transderm-Scop) 1 patch TD Q3D [facility] Last Admin: 06/09/17 21:30 Dose: 1 patch Tamsulosin HCl (Flomax) 0.4 mg PO DAILY [facility] Last Admin: 06/12/17 10:53 Dose: 0.4 mg - Labs Labs: 06/08/17 07:15 06/08/17 07:15 PT 10.6 SECONDS (9.7-12.2) 11/24/15 14:10 INR 1.0 11/24/15 14:10 APTT 25 SECONDS (21-34) 11/24/15 14:10 Attending/Attestation - Attestation I have personally seen and examined this patient.: Yes I have fully participated in the care of the patient.: Yes I have reviewed all pertinent clinical information, including history, physical exam and plan: Yes Notes (Text): 06/12/17 18:26 Patient was seen and examined at bedside with the resident No change in clinical condition Continue current management I discussed the plan of care with the resident and agree with assessment and plan documented above.
[2017-06-12] MEDS: Acetylcysteine 20% Inhal Soln (4ml) INH SCH (19:21)
[2017-06-13] MEDS: Acetylcysteine 20% Inhal Soln (4ml) INH SCH ×3 (01:32→15:26)
--- NOTE | 2017-06-13 03:55 | CP.PCM.PN ---
<Tyra Yen - Last Filed: 06/13/17 03:53> Subjective - Date & Time of Evaluation Date of Evaluation: 06/13/17 Time of Evaluation: 07:00 - Subjective Subjective: PGY1-Medicine Note-Dr. Mccarty Service Patient seen and examined at bedside and is in no acute distress. ROS unobtainable due to patients clinical condition. Objective - Vital Signs/Intake and Output Vital Signs (last 24 hours): Temp Pulse Resp BP Pulse Ox 98.3 F 81 20 122/76 98 06/12/17 23:22 06/12/17 23:22 06/12/17 23:22 06/12/17 23:22 06/12/17 23:22 Intake and Output: 06/12/17 06/13/17 18:59 06:59 Intake Total 700 700 Output Total 500 Balance 200 700 - Medications Medications: Current Medications Acetaminophen (Tylenol 650mg/20.3ml Solution Ud) 650 mg PEG Q6 PRN PRN Reason: Fever >100.4 F Last Admin: 04/07/17 02:45 Dose: 650 mg Acetylcysteine (Acetylcysteine 20%) 4 ml INH RQ8 [facility] Last Admin: 06/13/17 01:32 Dose: Not Given Aspirin (Aspirin Chewable) 81 mg PO DAILY [facility] Last Admin: 06/12/17 10:53 Dose: 81 mg Bethanechol Chloride (Urecholine) 50 mg PEG TID [facility] Last Admin: 06/12/17 18:32 Dose: 50 mg Carvedilol (Coreg) 3.125 mg PEG BID [facility] Last Admin: 06/12/17 18:33 Dose: Not Given Clopidogrel Bisulfate (Plavix) 75 mg PO DAILY [facility] Last Admin: 06/12/17 10:53 Dose: 75 mg Famotidine (Pepcid) 20 mg PEG BID [facility] Last Admin: 06/12/17 18:32 Dose: 20 mg Finasteride (Proscar) 5 mg PO DAILY [facility] Last Admin: 06/12/17 10:53 Dose: 5 mg Guaifenesin/Codeine Phosphate (Guaifenesin/Codeine) 10 ml PO DAILY [facility] Last Admin: 06/12/17 10:53 Dose: 10 ml Levetiracetam (Keppra) 500 mg PO BID [facility] Last Admin: 06/12/17 18:32 Dose: 500 mg Saccharomyces Boulardii (Florastor) 250 mg PO DAILY [facility] Last Admin: 06/12/17 10:53 Dose: 250 mg Scopolamine (Transderm-Scop) 1 patch TD Q3D [facility] Last Admin: 06/12/17 21:45 Dose: 1 patch Tamsulosin HCl (Flomax) 0.4 mg PO DAILY [facility] Last Admin: 06/12/17 10:53 Dose: 0.4 mg - Labs Labs: 06/08/17 07:15 06/08/17 07:15 PT 10.6 SECONDS (9.7-12.2) 11/24/15 14:10 INR 1.0 11/24/15 14:10 APTT 25 SECONDS (21-34) 11/24/15 14:10 - Constitutional Appears: No Acute Distress - Head Exam Head Exam: ATRAUMATIC, NORMAL INSPECTION, NORMOCEPHALIC - Eye Exam Eye Exam: EOMI, Normal appearance, PERRL - ENT Exam ENT Exam: Mucous Membranes Moist, Normal Exam - Neck Exam Neck Exam: Normal Inspection. absent: Lymphadenopathy Additional comments: Trach collar in place, no abnormal secretions noted - Respiratory Exam Respiratory Exam: Clear to Ausculation Bilateral, NORMAL BREATHING PATTERN - Cardiovascular Exam Cardiovascular Exam: REGULAR RHYTHM, RRR, +S1, +S2. absent: Murmur - GI/Abdominal Exam GI & Abdominal Exam: Soft, Normal Bowel Sounds. absent: Distended, Firm, Guarding, Rigid Additional comments: PEG in tact; no redness or discharge visualize - Extremities Exam Extremities Exam: Normal Inspection Additional comments: boots in place - Neurological Exam Additional comments: in coma state since 2014 - Skin Skin Exam: Intact, Normal Color, Warm Assessment and Plan - Assessment and Plan (Free Text) Assessment: (1) Anoxic encephalopathy Assessment & Plan: s/p cardiac arrest in 05/2015 no acute changes Pt has non spontaneous movements. continue current management. Continue tube feeds- at goal of 60 Florastor 250mg PO TID via PEG Status: Chronic (2) UTI (urinary tract infection) Assessment & Plan: Patient afebrile Completed course of Amikacin and Meropenem. amikacin discontinued on 04/18 ( total 10), Meropenem (04/13) total 7 days Urine culture (04/06/17): + Proteus Mirabilis Urine [place] catheter in place Ordered- new condom catheter 05/22/17 Tylenol 650mg po q6 PEG PRN UA and Urine Cx ordered on 05/28/17 showed gram negative rods --> Proteus Mirabilis Started Primaxin 500mg IV Q6 on 05/30/17--> will discontinue tomorrow WBC count trending down 9/7 (05/30/17); 9.2 (05/29/17); 12.2 (05/28/17) CBC: F/U Status: Resolved (3) Urinary retention Assessment & Plan: 06/08: urinary retention yesterday, was given 40mg lasix iv and patient was able to urinate through condom baker Take note condom cath not always securely in place so Is and Os are approximate as patient does wet bed Ordered- new condom catheter on 05/22/17 Flomax 0.4mg PEG daily Proscar 5mg PEG daily continue Bethanecol 50mg PEG TID- started after persistent retention and found to be effective. monitor I's and O's Check bladder scan for residual urine three times weekly Status: Acute (4) Watery stools Assessment & Plan: Recent completion of Merrem, Amikacin C. diff negative (04/26/17) Stool leukocytes negative (04/26/17) stool culture (04/26/17) negative Status: Resolved (5) Respiratory failure Assessment & Plan: Trach in place, continue daily monitoring for secretions. No change in management at this time. Continue with aggressive suctioning multiple times a day per respiratory therapist. Monitor for signs of respiratory distress Thick secretions Duoneb 3ml INH Q6 and Mucomyst 4ml INH Q6H Robitussin 100mg PEG Q12H Scopolamine 1 patch TD Q3D JOO Repeat CXR on 05/28/17: linear increased consolidative changes in the right mid- lung zone and left lung base which may represent atelectasis and/or infiltrate. Question trace left pleural effusion. moderate venous congestion. cardiomegaly. degenerative changes in the spine and shoulders Status: Chronic (6) Sacral ulcer Assessment & Plan: Healed Cont with offloading/cushioning/turning Continue frequent turning, protective ointment and skin checks. Status: Resolved (7) History of coronary artery disease Assessment & Plan: s/p cardiac stents on 06/13/15 Cont ASA 81mg via PEG daily Cont Coreg 3.125mg PEG BID Cont Plavix 75mg PO daily Status: Acute (8) Seizures Assessment & Plan: Cont Keppra 500mg PEG BID for seizure prophylaxis Monitor for activity Status: Acute (9) Lower extremity edema Assessment & Plan: Improved Continue to monitor Status: Acute (10) Constipation Assessment & Plan: Lactulose 20gm PEG once on 06/01/17 Lactulose 30gm PEG once on 05/20/17 Status: Acute (11) Prophylactic measure Assessment & Plan: Pepcid 20 mg PEG BID Lovenox 30mg SC daily SCDs and offloading boots continue to turn and reposition q2hrs Feeds increased to 50cc/hr. Per foreclosure field inspector (05/02/17): tube feed goal: Isosource 1.5 @ 50cc/h Will continue tube feeds @ 50 with goal of 60cc/h PICC line discontinued 05/22/17 Continue to monitor medication administrations and clinical presentation weekly labs. Status: Acute <Donnell Ying M - Last Filed: 06/13/17 17:07> Objective - Vital Signs/Intake and Output Vital Signs (last 24 hours): Temp Pulse Resp BP Pulse Ox 98.1 F 75 20 118/75 98 06/13/17 16:00 06/13/17 16:00 06/13/17 16:00 06/13/17 16:00 06/13/17 16:00 Intake and Output: 06/13/17 06/13/17 06:59 18:59 Intake Total 1400 700 Output Total 400 300 Balance 1000 400 - Medications Medications: Current Medications Acetaminophen (Tylenol 650mg/20.3ml Solution Ud) 650 mg PEG Q6 PRN PRN Reason: Fever >100.4 F Last Admin: 04/07/17 02:45 Dose: 650 mg Acetylcysteine (Acetylcysteine 20%) 4 ml INH RQ8 [facility] Last Admin: 06/13/17 15:26 Dose: 4 ml Albuterol/Ipratropium (Duoneb 3 Mg/0.5 Mg (3 Ml) Ud) 3 ml INH RQ6 [facility] Last Admin: 06/13/17 13:12 Dose: 3 ml Aspirin (Aspirin Chewable) 81 mg PO DAILY [facility] Last Admin: 06/13/17 10:36 Dose: 81 mg Bethanechol Chloride (Urecholine) 50 mg PEG TID [facility] Last Admin: 06/13/17 14:00 Dose: 50 mg Carvedilol (Coreg) 3.125 mg PEG BID [facility] Last Admin: 06/13/17 10:36 Dose: 3.125 mg Clopidogrel Bisulfate (Plavix) 75 mg PO DAILY [facility] Last Admin: 06/13/17 10:37 Dose: 75 mg Famotidine (Pepcid) 20 mg PEG BID [facility] Last Admin: 06/13/17 10:37 Dose: 20 mg Finasteride (Proscar) 5 mg PO DAILY [facility] Last Admin: 06/13/17 10:37 Dose: 5 mg Guaifenesin/Codeine Phosphate (Guaifenesin/Codeine) 10 ml PO DAILY [facility] Last Admin: 06/13/17 10:37 Dose: 10 ml Levetiracetam (Keppra) 500 mg PO BID [facility] Last Admin: 06/13/17 10:37 Dose: 500 mg Saccharomyces Boulardii (Florastor) 250 mg PO DAILY [facility] Last Admin: 06/13/17 10:37 Dose: 250 mg Scopolamine (Transderm-Scop) 1 patch TD Q3D [facility] Last Admin: 06/12/17 21:45 Dose: 1 patch Tamsulosin HCl (Flomax) 0.4 mg PO DAILY [facility] Last Admin: 06/13/17 10:37 Dose: 0.4 mg - Labs Labs: 06/08/17 07:15 06/08/17 07:15 PT 10.6 SECONDS (9.7-12.2) 11/24/15 14:10 INR 1.0 11/24/15 14:10 APTT 25 SECONDS (21-34) 11/24/15 14:10 Attending/Attestation - Attestation I have personally seen and examined this patient.: Yes I have fully participated in the care of the patient.: Yes I have reviewed all pertinent clinical information, including history, physical exam and plan: Yes Notes (Text): 06/13/17 17:07 Patient was seen and examined at bedside Continue current medical management Agree with the assessment and plan documented by the resident.
[2017-06-13] MEDS: guaiFENesin-Codeine 100-10mg/5ml Syrup (10ml) UD PO SCH (10:37)
[2017-06-13] MEDS: Saccharomyces Boulardi 250 mg Cap PO SCH (10:37)
[2017-06-13] MEDS: Albuterol-Ipratrop 3 mg / 0.5 (3 ml) UD INH SCH ×3 (13:12→15:32)
[2017-06-14] MEDS: Albuterol-Ipratrop 3 mg / 0.5 (3 ml) UD INH SCH ×4 (02:13→15:34)
[2017-06-14] MEDS: Acetylcysteine 20% Inhal Soln (4ml) INH SCH ×3 (02:14→15:34)
--- NOTE | 2017-06-14 03:21 | CP.PCM.PN ---
<Tyra Yen - Last Filed: 06/14/17 03:18> Subjective - Date & Time of Evaluation Date of Evaluation: 06/14/17 Time of Evaluation: 07:00 - Subjective Subjective: PGY1-Medicine Note-Dr. Mccarty Service Patient seen and examined at bedside and is in no acute distress. ROS unobtainable due to patients clinical condition. Objective - Vital Signs/Intake and Output Vital Signs (last 24 hours): Temp Pulse Resp BP Pulse Ox 98.5 F 77 19 102/55 L 99 06/13/17 23:19 06/13/17 23:19 06/13/17 23:19 06/13/17 23:19 06/13/17 23:19 Intake and Output: 06/13/17 06/14/17 18:59 06:59 Intake Total 700 700 Output Total 300 300 Balance 400 400 - Medications Medications: Current Medications Acetaminophen (Tylenol 650mg/20.3ml Solution Ud) 650 mg PEG Q6 PRN PRN Reason: Fever >100.4 F Last Admin: 04/07/17 02:45 Dose: 650 mg Acetylcysteine (Acetylcysteine 20%) 4 ml INH RQ8 [facility] Last Admin: 06/14/17 02:14 Dose: 4 ml Albuterol/Ipratropium (Duoneb 3 Mg/0.5 Mg (3 Ml) Ud) 3 ml INH RQ6 [facility] Last Admin: 06/14/17 02:13 Dose: 3 ml Aspirin (Aspirin Chewable) 81 mg PO DAILY [facility] Last Admin: 06/13/17 10:36 Dose: 81 mg Bethanechol Chloride (Urecholine) 50 mg PEG TID [facility] Last Admin: 06/13/17 17:52 Dose: 50 mg Carvedilol (Coreg) 3.125 mg PEG BID [facility] Last Admin: 06/13/17 17:52 Dose: 3.125 mg Clopidogrel Bisulfate (Plavix) 75 mg PO DAILY [facility] Last Admin: 06/13/17 10:37 Dose: 75 mg Famotidine (Pepcid) 20 mg PEG BID [facility] Last Admin: 06/13/17 17:52 Dose: 20 mg Finasteride (Proscar) 5 mg PO DAILY [facility] Last Admin: 06/13/17 10:37 Dose: 5 mg Guaifenesin/Codeine Phosphate (Guaifenesin/Codeine) 10 ml PO DAILY [facility] Last Admin: 06/13/17 10:37 Dose: 10 ml Levetiracetam (Keppra) 500 mg PO BID [facility] Last Admin: 06/13/17 17:52 Dose: 500 mg Saccharomyces Boulardii (Florastor) 250 mg PO DAILY [facility] Last Admin: 06/13/17 10:37 Dose: 250 mg Scopolamine (Transderm-Scop) 1 patch TD Q3D [facility] Last Admin: 06/12/17 21:45 Dose: 1 patch Tamsulosin HCl (Flomax) 0.4 mg PO DAILY [facility] Last Admin: 06/13/17 10:37 Dose: 0.4 mg - Labs Labs: 06/08/17 07:15 06/08/17 07:15 PT 10.6 SECONDS (9.7-12.2) 11/24/15 14:10 INR 1.0 11/24/15 14:10 APTT 25 SECONDS (21-34) 11/24/15 14:10 - Constitutional Appears: Well - Head Exam Head Exam: ATRAUMATIC, NORMAL INSPECTION, NORMOCEPHALIC - Eye Exam Eye Exam: EOMI, Normal appearance, PERRL - ENT Exam ENT Exam: Mucous Membranes Moist, Normal Exam - Neck Exam Additional comments: Trach collar in place, no abnormal secretions noted - Respiratory Exam Respiratory Exam: Clear to Ausculation Bilateral, NORMAL BREATHING PATTERN - Cardiovascular Exam Cardiovascular Exam: REGULAR RHYTHM, RRR - GI/Abdominal Exam GI & Abdominal Exam: Soft, Normal Bowel Sounds Additional comments: PEG in tact; no redness or discharge visualize - Extremities Exam Additional comments: boots in place - Neurological Exam Neurological Exam: absent: Oriented x3 Additional comments: in coma state since 2014 - Skin Skin Exam: Intact, Normal Color, Warm Assessment and Plan - Assessment and Plan (Free Text) Assessment: (1) Anoxic encephalopathy Assessment & Plan: s/p cardiac arrest in 05/2015 no acute changes Pt has non spontaneous movements. continue current management. Continue tube feeds- at goal of 60 Florastor 250mg PO TID via PEG Status: Chronic (2) UTI (urinary tract infection) Assessment & Plan: Patient afebrile Completed course of Amikacin and Meropenem. amikacin discontinued on 04/18 ( total 10), Meropenem (04/13) total 7 days Urine culture (04/06/17): + Proteus Mirabilis Urine [place] catheter in place Ordered- new condom catheter 05/22/17 Tylenol 650mg po q6 PEG PRN UA and Urine Cx ordered on 05/28/17 showed gram negative rods --> Proteus Mirabilis Started Primaxin 500mg IV Q6 on 05/30/17--> will discontinue tomorrow WBC count trending down 9/7 (05/30/17); 9.2 (05/29/17); 12.2 (05/28/17) CBC: F/U Status: Resolved (3) Urinary retention Assessment & Plan: 06/08: urinary retention yesterday, was given 40mg lasix iv and patient was able to urinate through condom baker Take note condom cath not always securely in place so Is and Os are approximate as patient does wet bed Ordered- new condom catheter on 05/22/17 Flomax 0.4mg PEG daily Proscar 5mg PEG daily continue Bethanecol 50mg PEG TID- started after persistent retention and found to be effective. monitor I's and O's Check bladder scan for residual urine three times weekly Status: Acute (4) Watery stools Assessment & Plan: Recent completion of Merrem, Amikacin C. diff negative (04/26/17) Stool leukocytes negative (04/26/17) stool culture (04/26/17) negative Status: Resolved (5) Respiratory failure Assessment & Plan: Trach in place, continue daily monitoring for secretions. No change in management at this time. Continue with aggressive suctioning multiple times a day per respiratory therapist. Monitor for signs of respiratory distress Thick secretions Duoneb 3ml INH Q6 and Mucomyst 4ml INH Q6H Robitussin 100mg PEG Q12H Scopolamine 1 patch TD Q3D [facility] Repeat CXR on 05/28/17: linear increased consolidative changes in the right mid- lung zone and left lung base which may represent atelectasis and/or infiltrate. Question trace left pleural effusion. moderate venous congestion. cardiomegaly. degenerative changes in the spine and shoulders Status: Chronic (6) Sacral ulcer Assessment & Plan: Healed Cont with offloading/cushioning/turning Continue frequent turning, protective ointment and skin checks. Status: Resolved (7) History of coronary artery disease Assessment & Plan: s/p cardiac stents on 06/13/15 Cont ASA 81mg via PEG daily Cont Coreg 3.125mg PEG BID Cont Plavix 75mg PO daily Status: Acute (8) Seizures Assessment & Plan: Cont Keppra 500mg PEG BID for seizure prophylaxis Monitor for activity Status: Acute (9) Lower extremity edema Assessment & Plan: Improved Continue to monitor Status: Acute (10) Constipation Assessment & Plan: Lactulose 20gm PEG once on 06/01/17 Lactulose 30gm PEG once on 05/20/17 Status: Acute (11) Prophylactic measure Assessment & Plan: Pepcid 20 mg PEG BID Lovenox 30mg SC daily SCDs and offloading boots continue to turn and reposition q2hrs Feeds increased to 50cc/hr. Per forestry foreman (05/02/17): tube feed goal: Isosource 1.5 @ 50cc/h Will continue tube feeds @ 50 with goal of 60cc/h PICC line discontinued 05/22/17 Continue to monitor medication administrations and clinical presentation weekly labs. Status: Acute <Donnell Ying M - Last Filed: 06/14/17 14:51> Objective - Vital Signs/Intake and Output Vital Signs (last 24 hours): Temp Pulse Resp BP Pulse Ox 98.5 F 91 H 20 120/76 99 06/14/17 08:00 06/14/17 08:00 06/14/17 08:00 06/14/17 08:00 06/14/17 08:00 Intake and Output: 06/14/17 06/14/17 06:59 18:59 Intake Total 1400 Output Total 600 600 Balance 800 -600 - Medications Medications: Current Medications Acetaminophen (Tylenol 650mg/20.3ml Solution Ud) 650 mg PEG Q6 PRN PRN Reason: Fever >100.4 F Last Admin: 04/07/17 02:45 Dose: 650 mg Acetylcysteine (Acetylcysteine 20%) 4 ml INH RQ8 [facility] Last Admin: 06/14/17 08:57 Dose: 4 ml Albuterol/Ipratropium (Duoneb 3 Mg/0.5 Mg (3 Ml) Ud) 3 ml INH RQ6 [facility] Last Admin: 06/14/17 14:05 Dose: 3 ml Aspirin (Aspirin Chewable) 81 mg PO DAILY [facility] Last Admin: 06/14/17 10:19 Dose: 81 mg Bethanechol Chloride (Urecholine) 50 mg PEG TID [facility] Last Admin: 06/14/17 14:38 Dose: 50 mg Carvedilol (Coreg) 3.125 mg PEG BID [facility] Last Admin: 06/14/17 10:21 Dose: 3.125 mg Clopidogrel Bisulfate (Plavix) 75 mg PO DAILY [facility] Last Admin: 06/14/17 10:20 Dose: 75 mg Famotidine (Pepcid) 20 mg PEG BID [facility] Last Admin: 06/14/17 10:21 Dose: 20 mg Finasteride (Proscar) 5 mg PO DAILY [facility] Last Admin: 06/14/17 10:21 Dose: 5 mg Levetiracetam (Keppra) 500 mg PEG BID [facility] Last Admin: 06/14/17 12:10 Dose: 500 mg Saccharomyces Boulardii (Florastor) 250 mg PO DAILY [facility] Last Admin: 06/14/17 12:11 Dose: 250 mg Scopolamine (Transderm-Scop) 1 patch TD Q3D [facility] Last Admin: 06/12/17 21:45 Dose: 1 patch Tamsulosin HCl (Flomax) 0.4 mg PO DAILY [facility] Last Admin: 06/14/17 10:20 Dose: 0.4 mg - Labs Labs: 06/08/17 07:15 06/08/17 07:15 PT 10.6 SECONDS (9.7-12.2) 11/24/15 14:10 INR 1.0 11/24/15 14:10 APTT 25 SECONDS (21-34) 11/24/15 14:10 Attending/Attestation - Attestation I have personally seen and examined this patient.: Yes I have fully participated in the care of the patient.: Yes I have reviewed all pertinent clinical information, including history, physical exam and plan: Yes Notes (Text): 06/14/17 14:50 The patient was seen and examined at bedside Continue current medical management Agree with the assessment and plan documented by the resident.
[2017-06-14] MEDS: guaiFENesin-Codeine 100-10mg/5ml Syrup (10ml) UD PO SCH (10:20)
[2017-06-14] MEDS: levETIRAcetam 100 mg/ml (5ml) Oral Syringe PEG SCH ×2 (12:10→17:24)
[2017-06-14] MEDS: Saccharomyces Boulardi 250 mg Cap PO SCH (12:11)
[2017-06-15] MEDS: Albuterol-Ipratrop 3 mg / 0.5 (3 ml) UD INH SCH ×4 (01:33→19:14)
[2017-06-15] MEDS: Acetylcysteine 20% Inhal Soln (4ml) INH SCH ×3 (01:33→19:14)
[2017-06-15] MEDS: levETIRAcetam 100 mg/ml (5ml) Oral Syringe PEG SCH ×2 (10:47→18:11)
[2017-06-15] MEDS: Saccharomyces Boulardi 250 mg Cap PEG SCH (10:56)
--- NOTE | 2017-06-15 22:30 | CP.PCM.PN ---
<Ben Martell - Last Filed: 06/15/17 22:28> Subjective - Date & Time of Evaluation Date of Evaluation: 06/15/17 Time of Evaluation: 16:40 - Subjective Subjective: PGY1 Medicine Note - Dr. Caden Mercedes's Service Patient seen and examined at bedside and is in no acute distress. Patient making crackling noise indicative of a need for suction. ROS unobtainable due to patients clinical condition. Objective - Vital Signs/Intake and Output Vital Signs (last 24 hours): Temp Pulse Resp BP Pulse Ox 98.3 F 75 20 104/63 98 06/15/17 16:00 06/15/17 16:00 06/15/17 16:00 06/15/17 16:00 06/15/17 16:00 Intake and Output: 06/15/17 06/16/17 18:59 06:59 Intake Total 1300 Output Total 700 Balance 600 - Medications Medications: Current Medications Acetaminophen (Tylenol 650mg/20.3ml Solution Ud) 650 mg PEG Q6 PRN PRN Reason: Fever >100.4 F Last Admin: 04/07/17 02:45 Dose: 650 mg Acetylcysteine (Acetylcysteine 20%) 4 ml INH RQ8 [facility] Last Admin: 06/15/17 19:14 Dose: 4 ml Albuterol/Ipratropium (Duoneb 3 Mg/0.5 Mg (3 Ml) Ud) 3 ml INH RQ6 [facility] Last Admin: 06/15/17 19:14 Dose: 3 ml Aspirin (Aspirin Chewable) 81 mg PEG DAILY [facility] Last Admin: 06/15/17 10:47 Dose: 81 mg Bethanechol Chloride (Urecholine) 50 mg PEG TID [facility] Last Admin: 06/15/17 18:12 Dose: 50 mg Carvedilol (Coreg) 3.125 mg PEG BID [facility] Last Admin: 06/15/17 18:12 Dose: 3.125 mg Clopidogrel Bisulfate (Plavix) 75 mg PEG DAILY [facility] Last Admin: 06/15/17 10:47 Dose: 75 mg Famotidine (Pepcid) 20 mg PEG BID [facility] Last Admin: 06/15/17 18:11 Dose: 20 mg Finasteride (Proscar) 5 mg PEG DAILY [facility] Last Admin: 06/15/17 10:47 Dose: 5 mg Levetiracetam (Keppra) 500 mg PEG BID [facility] Last Admin: 06/15/17 18:11 Dose: 500 mg Saccharomyces Boulardii (Florastor) 250 mg PEG DAILY [facility] Last Admin: 06/15/17 10:56 Dose: 250 mg Scopolamine (Transderm-Scop) 1 patch TD Q3D [facility] Last Admin: 06/12/17 21:45 Dose: 1 patch Tamsulosin HCl (Flomax) 0.4 mg PEG DAILY [facility] Last Admin: 06/15/17 10:47 Dose: 0.4 mg - Labs Labs: 06/08/17 07:15 06/08/17 07:15 PT 10.6 SECONDS (9.7-12.2) 11/24/15 14:10 INR 1.0 11/24/15 14:10 APTT 25 SECONDS (21-34) 11/24/15 14:10 - Constitutional Appears: Chronically Ill - Head Exam Head Exam: NORMAL INSPECTION - Eye Exam Eye Exam: Normal appearance - ENT Exam ENT Exam: Mucous Membranes Moist - Neck Exam Neck Exam: Normal Inspection - Respiratory Exam Respiratory Exam: Wheezes - Cardiovascular Exam Cardiovascular Exam: REGULAR RHYTHM, +S1, +S2. absent: Murmur - GI/Abdominal Exam GI & Abdominal Exam: Normal Bowel Sounds - Rectal Exam Rectal Exam: Deferred - Extremities Exam Extremities Exam: absent: Full ROM - Neurological Exam Neurological Exam: Altered. absent: Alert, Awake - Skin Skin Exam: Dry, Intact, Normal Color, Warm Assessment and Plan - Assessment and Plan (Free Text) Assessment: (1) Anoxic encephalopathy Assessment & Plan: s/p cardiac arrest in 05/2015 no acute changes Pt has non spontaneous movements. continue current management. Continue tube feeds- at goal of 60 Florastor 250mg PO TID via PEG Status: Chronic (2) UTI (urinary tract infection) Assessment & Plan: Patient afebrile Completed course of Amikacin and Meropenem. amikacin discontinued on 04/18 ( total 10), Meropenem (04/13) total 7 days Urine culture (04/06/17): + Proteus Mirabilis Urine [place] catheter in place Ordered- new condom catheter 05/22/17 Tylenol 650mg po q6 PEG PRN UA and Urine Cx ordered on 05/28/17 showed gram negative rods --> Proteus Mirabilis Started Primaxin 500mg IV Q6 on 05/30/17--> will discontinue tomorrow WBC count trending down 9/7 (05/30/17); 9.2 (05/29/17); 12.2 (05/28/17) CBC: F/U Status: Resolved (3) Urinary retention Assessment & Plan: 06/08: urinary retention yesterday, was given 40mg lasix iv and patient was able to urinate through condom baker Take note condom cath not always securely in place so Is and Os are approximate as patient does wet bed Ordered- new condom catheter on 05/22/17 Flomax 0.4mg PEG daily Proscar 5mg PEG daily continue Bethanecol 50mg PEG TID- started after persistent retention and found to be effective. monitor I's and O's Check bladder scan for residual urine three times weekly Status: Acute (4) Watery stools Assessment & Plan: Recent completion of Merrem, Amikacin C. diff negative (04/26/17) Stool leukocytes negative (04/26/17) stool culture (04/26/17) negative Status: Resolved (5) Respiratory failure Assessment & Plan: Trach in place, continue daily monitoring for secretions. No change in management at this time. Continue with aggressive suctioning multiple times a day per respiratory therapist. Monitor for signs of respiratory distress Thick secretions Duoneb 3ml INH Q6 and Mucomyst 4ml INH Q6H Robitussin 100mg PEG Q12H Scopolamine 1 patch TD Q3D [facility] Repeat CXR on 05/28/17: linear increased consolidative changes in the right mid- lung zone and left lung base which may represent atelectasis and/or infiltrate. Question trace left pleural effusion. moderate venous congestion. cardiomegaly. degenerative changes in the spine and shoulders Status: Chronic (6) Sacral ulcer Assessment & Plan: Healed Cont with offloading/cushioning/turning Continue frequent turning, protective ointment and skin checks. Status: Resolved (7) History of coronary artery disease Assessment & Plan: s/p cardiac stents on 06/13/15 Cont ASA 81mg via PEG daily Cont Coreg 3.125mg PEG BID Cont Plavix 75mg PO daily Status: Acute (8) Seizures Assessment & Plan: Cont Keppra 500mg PEG BID for seizure prophylaxis Monitor for activity Status: Acute (9) Lower extremity edema Assessment & Plan: Improved Continue to monitor Status: Acute (10) Constipation Assessment & Plan: Lactulose 20gm PEG once on 06/01/17 Lactulose 30gm PEG once on 05/20/17 Status: Acute (11) Prophylactic measure Assessment & Plan: Pepcid 20 mg PEG BID Lovenox 40mg SC daily SCDs and offloading boots continue to turn and reposition q2hrs Feeds increased to 50cc/hr. Per airport operations specialist (05/02/17): tube feed goal: Isosource 1.5 @ 50cc/h Will continue tube feeds @ 50 with goal of 60cc/h PICC line discontinued 05/22/17 Continue to monitor medication administrations and clinical presentation weekly labs. vasoline ointment applied to feet prn to prevent hyperkeratosis Status: Acute <Caden Mercedes - Last Filed: 06/17/17 06:52> Objective - Vital Signs/Intake and Output Vital Signs (last 24 hours): Temp Pulse Resp BP Pulse Ox 98.4 F 75 20 112/74 100 06/17/17 00:05 06/17/17 00:05 06/17/17 00:05 06/17/17 00:05 06/17/17 00:05 Intake and Output: 06/16/17 06/17/17 18:59 06:59 Intake Total 1180 Output Total 1000 Balance 180 - Medications Medications: Current Medications Acetaminophen (Tylenol 650mg/20.3ml Solution Ud) 650 mg PEG Q6 PRN PRN Reason: Fever >100.4 F Last Admin: 04/07/17 02:45 Dose: 650 mg Acetylcysteine (Acetylcysteine 20%) 4 ml INH RQ8 [facility] Last Admin: 06/17/17 06:09 Dose: 4 ml Albuterol/Ipratropium (Duoneb 3 Mg/0.5 Mg (3 Ml) Ud) 3 ml INH RQ6 [facility] Last Admin: 06/17/17 01:40 Dose: 3 ml Aspirin (Aspirin Chewable) 81 mg PEG DAILY [facility] Last Admin: 06/16/17 12:10 Dose: 81 mg Bethanechol Chloride (Urecholine) 50 mg PEG TID [facility] Last Admin: 06/16/17 18:11 Dose: 50 mg Carvedilol (Coreg) 3.125 mg PEG BID [facility] Last Admin: 06/16/17 18:11 Dose: 3.125 mg Clopidogrel Bisulfate (Plavix) 75 mg PEG DAILY [facility] Last Admin: 06/16/17 12:11 Dose: 75 mg Emollient Ointment (Vaseline Oint) 5 gm TOP DAILY PRN PRN Reason: Dry skin Enoxaparin Sodium (Lovenox) 40 mg SC DAILY [facility] Last Admin: 06/16/17 12:11 Dose: 40 mg Famotidine (Pepcid) 20 mg PEG BID [facility] Last Admin: 06/16/17 18:11 Dose: 20 mg Finasteride (Proscar) 5 mg PEG DAILY [facility] Last Admin: 06/16/17 12:11 Dose: 5 mg Levetiracetam (Keppra) 500 mg PEG BID [facility] Last Admin: 06/16/17 18:10 Dose: 500 mg Saccharomyces Boulardii (Florastor) 250 mg PEG DAILY [facility] Last Admin: 06/16/17 14:50 Dose: 250 mg Scopolamine (Transderm-Scop) 1 patch TD Q3D [facility] Last Admin: 06/16/17 00:08 Dose: 1 patch Tamsulosin HCl (Flomax) 0.4 mg PEG DAILY [facility] Last Admin: 06/16/17 12:10 Dose: 0.4 mg - Labs Labs: 06/16/17 11:28 06/16/17 07:26 PT 10.6 SECONDS (9.7-12.2) 11/24/15 14:10 INR 1.0 11/24/15 14:10 APTT 25 SECONDS (21-34) 11/24/15 14:10 Attending/Attestation - Attestation I have personally seen and examined this patient.: Yes I have fully participated in the care of the patient.: Yes I have reviewed all pertinent clinical information, including history, physical exam and plan: Yes Notes (Text): 06/17/17 06:51 Patient was seen and examined with the Resident on 06/15/17 and exam, assessment and plan were thoroughly discussed. Caden Mercedes D.O.
[2017-06-16] MEDS: Acetylcysteine 20% Inhal Soln (4ml) INH SCH ×4 (01:54→20:07)
[2017-06-16] MEDS: Albuterol-Ipratrop 3 mg / 0.5 (3 ml) UD INH SCH ×4 (01:55→20:06)
[2017-06-16 07:50] LABS: ALBUMIN 3.5 g/dL (3.5-5.0)
[2017-06-16 07:53] LABS: ALB/GLOB RATIO 0.7 (1.0-2.1); ALT/SGPT 54 U/L (21-72); AST/SGOT 31 U/L (17-59); BLOOD UREA NITROGEN 11 mg/dL (9-20); GFR NON-AFRICAN AMERICAN > 60
[2017-06-16 07:54] LABS: CALCIUM 8.5 mg/dl (8.6-10.4)
--- NOTE | 2017-06-16 10:23 | CP.PCM.PN ---
<TregoAmanda valdezmaylin E - Last Filed: 06/16/17 16:41> Subjective - Date & Time of Evaluation Date of Evaluation: 06/16/17 Time of Evaluation: 07:35 - Subjective Subjective: Medicine Note ( PGY 1) : Dr. Rani Mercedes's service Patient was seen and examined at bedside. Patient is unchanged clinically and continues to be arousable to touch. Patient is non-verbal, therefore ROS cannot be evaluated. As per nurse's note, there were no acute issues over night. Patient's family members continue to visit during the evening time. Objective - Vital Signs/Intake and Output Vital Signs (last 24 hours): Temp Pulse Resp BP Pulse Ox 98.3 F 85 23 111/74 100 06/16/17 07:53 06/16/17 07:53 06/16/17 07:53 06/16/17 07:53 06/16/17 07:53 Intake and Output: 06/16/17 06/16/17 06:59 18:59 Intake Total 1300 400 Output Total 700 Balance 600 400 - Medications Medications: Current Medications Acetaminophen (Tylenol 650mg/20.3ml Solution Ud) 650 mg PEG Q6 PRN PRN Reason: Fever >100.4 F Last Admin: 04/07/17 02:45 Dose: 650 mg Acetylcysteine (Acetylcysteine 20%) 4 ml INH RQ8 [facility] Last Admin: 06/16/17 07:24 Dose: 4 ml Albuterol/Ipratropium (Duoneb 3 Mg/0.5 Mg (3 Ml) Ud) 3 ml INH RQ6 [facility] Last Admin: 06/16/17 07:24 Dose: 3 ml Aspirin (Aspirin Chewable) 81 mg PEG DAILY [facility] Last Admin: 06/15/17 10:47 Dose: 81 mg Bethanechol Chloride (Urecholine) 50 mg PEG TID [facility] Last Admin: 06/15/17 18:12 Dose: 50 mg Carvedilol (Coreg) 3.125 mg PEG BID [facility] Last Admin: 06/15/17 18:12 Dose: 3.125 mg Clopidogrel Bisulfate (Plavix) 75 mg PEG DAILY [facility] Last Admin: 06/15/17 10:47 Dose: 75 mg Emollient Ointment (Vaseline Oint) 5 gm TOP DAILY PRN PRN Reason: Dry skin Enoxaparin Sodium (Lovenox) 40 mg SC DAILY [facility] Famotidine (Pepcid) 20 mg PEG BID [facility] Last Admin: 06/15/17 18:11 Dose: 20 mg Finasteride (Proscar) 5 mg PEG DAILY [facility] Last Admin: 06/15/17 10:47 Dose: 5 mg Levetiracetam (Keppra) 500 mg PEG BID [facility] Last Admin: 06/15/17 18:11 Dose: 500 mg Saccharomyces Boulardii (Florastor) 250 mg PEG DAILY [facility] Last Admin: 06/15/17 10:56 Dose: 250 mg Scopolamine (Transderm-Scop) 1 patch TD Q3D [facility] Last Admin: 06/16/17 00:08 Dose: 1 patch Tamsulosin HCl (Flomax) 0.4 mg PEG DAILY [facility] Last Admin: 06/15/17 10:47 Dose: 0.4 mg - Labs Labs: 06/08/17 07:15 06/16/17 07:26 PT 10.6 SECONDS (9.7-12.2) 11/24/15 14:10 INR 1.0 11/24/15 14:10 APTT 25 SECONDS (21-34) 11/24/15 14:10 - Constitutional Appears: No Acute Distress - Head Exam Head Exam: ATRAUMATIC - ENT Exam ENT Exam: Mucous Membranes Moist, Normal Exam - Respiratory Exam Respiratory Exam: Rhonchi Additional comments: Trach tube in place - Cardiovascular Exam Cardiovascular Exam: REGULAR RHYTHM, +S1, +S2 - GI/Abdominal Exam GI & Abdominal Exam: Soft, Normal Bowel Sounds - Extremities Exam Extremities Exam: absent: Pedal Edema - Neurological Exam Neurological Exam: absent: Alert, Awake, Oriented x3 - Skin Skin Exam: Dry, Normal Color, Warm Assessment and Plan (1) Anoxic encephalopathy Assessment & Plan: s/p cardiac arrest in 05/2015 no acute changes Pt has non spontaneous movements. continue current management. Continue tube feeds- at goal of 60 Florastor 250mg PO TID via PEG Status: Chronic (2) Urinary tract infection Assessment & Plan: Patient afebrile Completed course of Amikacin and Meropenem. amikacin discontinued on 04/18 ( total 10), Meropenem (04/13) total 7 days Urine culture (04/06/17): + Proteus Mirabilis Urine [place] catheter in place Ordered- new condom catheter 05/22/17 Tylenol 650mg po q6 PEG PRN UA and Urine Cx ordered on 05/28/17 showed gram negative rods --> Proteus Mirabilis Started Primaxin 500mg IV Q6 on 05/30/17--> will discontinue tomorrow WBC count stable as of 06/08/17 Status: Acute (3) Urinary retention Assessment & Plan: Stable 06/08: urinary retention yesterday, was given 40mg lasix iv and patient was able to urinate through condom baker Take note condom cath not always securely in place so Is and Os are approximate as patient does wet bed Ordered- new condom catheter on 05/22/17 Flomax 0.4mg PEG daily Proscar 5mg PEG daily continue Bethanecol 50mg PEG TID- started after persistent retention and found to be effective. monitor I's and O's Check bladder scan for residual urine three times weekly Status: Acute (4) Watery stools Assessment & Plan: Resolved Recent completion of Merrem, Amikacin C. diff negative (04/26/17) Stool leukocytes negative (04/26/17) stool culture (04/26/17) negative Status: Resolved (5) Respiratory failure Assessment & Plan: Trach in place, continue daily monitoring for secretions. No change in management at this time. Continue with aggressive suctioning multiple times a day per respiratory therapist. Monitor for signs of respiratory distress Thick secretions Duoneb 3ml INH Q6 and Mucomyst 4ml INH Q6H Robitussin 100mg PEG Q12H Scopolamine 1 patch TD Q3D [facility]OO Repeat CXR on 05/28/17: linear increased consolidative changes in the right mid- lung zone and left lung base which may represent atelectasis and/or infiltrate. Questionable trace left pleural effusion. moderate venous congestion. cardiomegaly. degenerative changes in the spine and shoulders Status: Chronic (6) Sacral ulcer Assessment & Plan: Healed Cont with offloading/cushioning/turning Continue frequent turning, protective ointment and skin checks. Status: Resolved (7) History of coronary artery disease Assessment & Plan: s/p cardiac stents on 06/13/15 Cont ASA 81mg via PEG daily Cont Coreg 3.125mg PEG BID Cont Plavix 75mg PO daily Status: Acute (8) Seizures Assessment & Plan: Cont Keppra 500mg PEG BID for seizure prophylaxis Monitor for activity Status: Acute (9) Lower extremity edema Assessment & Plan: Improved Continue to monitor Status: Acute (10) Constipation Assessment & Plan: Resolved Lactulose 20gm PEG once on 06/01/17 Lactulose 30gm PEG once on 05/20/17 Status: Acute (11) Prophylactic measure Assessment & Plan: Pepcid 20 mg PEG BID Lovenox 40mg SC daily SCDs and offloading boots continue to turn and reposition q2hrs Feeds increased to 50cc/hr. Per infection control coordinator (05/02/17): tube feed goal: Isosource 1.5 @ 50cc/h Will continue tube feeds @ 50 with goal of 60cc/h PICC line discontinued 05/22/17 Continue to monitor medication administrations and clinical presentation weekly labs. vasoline ointment applied to feet prn to prevent hyperkeratosis Stop feeding from 10pm-6am, placed into nursing communication (06/16/17) Status: Acute <Caden Mercedes - Last Filed: 06/17/17 06:53> Objective - Vital Signs/Intake and Output Vital Signs (last 24 hours): Temp Pulse Resp BP Pulse Ox 98.4 F 75 20 112/74 100 06/17/17 00:05 06/17/17 00:05 06/17/17 00:05 06/17/17 00:05 06/17/17 00:05 Intake and Output: 06/16/17 06/17/17 18:59 06:59 Intake Total 1180 Output Total 1000 Balance 180 - Medications Medications: Current Medications Acetaminophen (Tylenol 650mg/20.3ml Solution Ud) 650 mg PEG Q6 PRN PRN Reason: Fever >100.4 F Last Admin: 04/07/17 02:45 Dose: 650 mg Acetylcysteine (Acetylcysteine 20%) 4 ml INH RQ8 [facility] Last Admin: 06/17/17 06:09 Dose: 4 ml Albuterol/Ipratropium (Duoneb 3 Mg/0.5 Mg (3 Ml) Ud) 3 ml INH RQ6 [facility] Last Admin: 06/17/17 01:40 Dose: 3 ml Aspirin (Aspirin Chewable) 81 mg PEG DAILY [facility] Last Admin: 06/16/17 12:10 Dose: 81 mg Bethanechol Chloride (Urecholine) 50 mg PEG TID [facility] Last Admin: 06/16/17 18:11 Dose: 50 mg Carvedilol (Coreg) 3.125 mg PEG BID [facility] Last Admin: 06/16/17 18:11 Dose: 3.125 mg Clopidogrel Bisulfate (Plavix) 75 mg PEG DAILY [facility] Last Admin: 06/16/17 12:11 Dose: 75 mg Emollient Ointment (Vaseline Oint) 5 gm TOP DAILY PRN PRN Reason: Dry skin Enoxaparin Sodium (Lovenox) 40 mg SC DAILY [facility] Last Admin: 06/16/17 12:11 Dose: 40 mg Famotidine (Pepcid) 20 mg PEG BID [facility] Last Admin: 06/16/17 18:11 Dose: 20 mg Finasteride (Proscar) 5 mg PEG DAILY [facility] Last Admin: 06/16/17 12:11 Dose: 5 mg Levetiracetam (Keppra) 500 mg PEG BID [facility] Last Admin: 06/16/17 18:10 Dose: 500 mg Saccharomyces Boulardii (Florastor) 250 mg PEG DAILY [facility] Last Admin: 06/16/17 14:50 Dose: 250 mg Scopolamine (Transderm-Scop) 1 patch TD Q3D [facility] Last Admin: 06/16/17 00:08 Dose: 1 patch Tamsulosin HCl (Flomax) 0.4 mg PEG DAILY [facility] Last Admin: 06/16/17 12:10 Dose: 0.4 mg - Labs Labs: 06/16/17 11:28 06/16/17 07:26 PT 10.6 SECONDS (9.7-12.2) 11/24/15 14:10 INR 1.0 11/24/15 14:10 APTT 25 SECONDS (21-34) 11/24/15 14:10 Attending/Attestation - Attestation I have personally seen and examined this patient.: Yes I have fully participated in the care of the patient.: Yes I have reviewed all pertinent clinical information, including history, physical exam and plan: Yes Notes (Text): 06/17/17 06:52 Patient was seen and examined at 7 PM 06/16/17. His PEG Tube feedings will be stopped from 10 PM through 6AM daily. Caden Mercedes D.O.
[2017-06-16 11:41] LABS: BASO # 0.1 K/uL (0.0-0.2); BASO % 0.6 % (0.0-2.0); EOS # 0.5 K/uL (0.0-0.7); HEMOGLOBIN 12.7 g/dL (12.0-18.0); LYMPH # 2.2 K/uL (1.0-4.3); LYMPH % 24.4 % (20.0-40.0); MEAN CELL VOLUME 89.7 fL (80.0-94.0); MEAN CORPUSCULAR HEMOGLOBIN 28.6 pg (27.0-31.0); MEAN CORPUSCULAR HGB CONC 31.8 g/dL (33.0-37.0); MEAN PLATELET VOLUME 8.7 fL (7.2-11.7); MONO % 10.7 % (0.0-10.0); NEUT # 5.4 K/uL (1.8-7.0); NEUT % 59.3 % (50.0-75.0); NRBC % 0.1 % (0.0-2.0); RBC 4.44 Mil/uL (4.40-5.90); RED CELL DISTRIBUTION WIDTH 16.5 % (11.5-14.5); WHITE BLOOD COUNT 9.2 K/uL (4.8-10.8)
[2017-06-16] MEDS: levETIRAcetam 100 mg/ml (5ml) Oral Syringe PEG SCH ×2 (12:10→18:10)
[2017-06-16] MEDS: Enoxaparin 40 mg Syringe SC SCH (12:11)
[2017-06-16] MEDS: Saccharomyces Boulardi 250 mg Cap PEG SCH (14:50)
[2017-06-17] MEDS: Albuterol-Ipratrop 3 mg / 0.5 (3 ml) UD INH SCH ×4 (01:40→19:43)
[2017-06-17] MEDS: Acetylcysteine 20% Inhal Soln (4ml) INH SCH ×4 (01:40→19:43)
--- NOTE | 2017-06-17 11:43 | CP.PCM.PN ---
<[place]ale[place]manda valdez[place]lin E - Last Filed: 06/17/17 18:10> Subjective - Date & Time of Evaluation Date of Evaluation: 06/17/17 Time of Evaluation: 07:15 - Subjective Subjective: Medicine Note ( PGY 1) : Dr. Rani Mercedes's service Patient was seen and examined at bedside. Patient is unchanged clinically and continues to be arousable to touch. Patient is non-verbal, therefore ROS cannot be evaluated. As per nurse's note, there were no acute issues over night. Patient's family members continue to visit during the evening time. Objective - Vital Signs/Intake and Output Vital Signs (last 24 hours): Temp Pulse Resp BP Pulse Ox 98 F 84 20 125/79 100 06/17/17 08:47 06/17/17 08:47 06/17/17 08:47 06/17/17 08:47 06/17/17 08:47 Intake and Output: 06/17/17 06/17/17 06:59 18:59 Intake Total 250 600 Output Total 400 Balance -150 600 - Medications Medications: Current Medications Acetaminophen (Tylenol 650mg/20.3ml Solution Ud) 650 mg PEG Q6 PRN PRN Reason: Fever >100.4 F Last Admin: 04/07/17 02:45 Dose: 650 mg Acetylcysteine (Acetylcysteine 20%) 4 ml INH RQ8 [facility] Last Admin: 06/17/17 07:24 Dose: 4 ml Albuterol/Ipratropium (Duoneb 3 Mg/0.5 Mg (3 Ml) Ud) 3 ml INH RQ6 [facility] Last Admin: 06/17/17 07:24 Dose: 3 ml Aspirin (Aspirin Chewable) 81 mg PEG DAILY [facility] Last Admin: 06/16/17 12:10 Dose: 81 mg Bethanechol Chloride (Urecholine) 50 mg PEG TID [facility] Last Admin: 06/16/17 18:11 Dose: 50 mg Carvedilol (Coreg) 3.125 mg PEG BID [facility] Last Admin: 06/16/17 18:11 Dose: 3.125 mg Clopidogrel Bisulfate (Plavix) 75 mg PEG DAILY [facility] Last Admin: 06/16/17 12:11 Dose: 75 mg Emollient Ointment (Vaseline Oint) 5 gm TOP DAILY PRN PRN Reason: Dry skin Enoxaparin Sodium (Lovenox) 40 mg SC DAILY [facility] Last Admin: 06/16/17 12:11 Dose: 40 mg Famotidine (Pepcid) 20 mg PEG BID [facility] Last Admin: 06/16/17 18:11 Dose: 20 mg Finasteride (Proscar) 5 mg PEG DAILY [facility] Last Admin: 06/16/17 12:11 Dose: 5 mg Levetiracetam (Keppra) 500 mg PEG BID [facility] Last Admin: 06/16/17 18:10 Dose: 500 mg Saccharomyces Boulardii (Florastor) 250 mg PEG DAILY [facility] Last Admin: 06/16/17 14:50 Dose: 250 mg Scopolamine (Transderm-Scop) 1 patch TD Q3D [facility] Last Admin: 06/16/17 00:08 Dose: 1 patch Tamsulosin HCl (Flomax) 0.4 mg PEG DAILY [facility] Last Admin: 06/16/17 12:10 Dose: 0.4 mg - Labs Labs: 06/16/17 11:28 06/16/17 07:26 PT 10.6 SECONDS (9.7-12.2) 11/24/15 14:10 INR 1.0 11/24/15 14:10 APTT 25 SECONDS (21-34) 11/24/15 14:10 - Constitutional Appears: No Acute Distress Assessment and Plan (1) Anoxic encephalopathy Assessment & Plan: s/p cardiac arrest in 05/2015 no acute changes Pt has non spontaneous movements. continue current management. Continue tube feeds- at goal of 60 Florastor 250mg PO TID via PEG Status: Chronic (2) Urinary tract infection Assessment & Plan: Stable Patient afebrile Completed course of Amikacin and Meropenem. amikacin discontinued on 04/18 ( total 10), Meropenem (04/13) total 7 days Urine culture (04/06/17): + Proteus Mirabilis Urine [place] catheter in place Ordered- new condom catheter 05/22/17 Tylenol 650mg po q6 PEG PRN UA and Urine Cx ordered on 05/28/17 showed gram negative rods --> Proteus Mirabilis Started Primaxin 500mg IV Q6 on 05/30/17--> will discontinue tomorrow WBC count stable as of 06/08/17 Status: Acute (3) Urinary retention Assessment & Plan: Unchanged 06/17/17: Nursing communication placed in: straight catherization with bladder scan> 100ml 06/08: urinary retention yesterday, was given 40mg lasix iv and patient was able to urinate through condom baker Take note condom cath not always securely in place so Is and Os are approximate as patient does wet bed Ordered- new condom catheter on 05/22/17 Flomax 0.4mg PEG daily Proscar 5mg PEG daily continue Bethanecol 50mg PEG TID- started after persistent retention and found to be effective. monitor I's and O's Check bladder scan for residual urine three times weekly Status: Acute (4) Watery stools Assessment & Plan: Resolved As per patient's note, patient's stool is formed Recent completion of Merrem, Amikacin C. diff negative (04/26/17) Stool leukocytes negative (04/26/17) stool culture (04/26/17) negative Status: Resolved (5) Respiratory failure Assessment & Plan: Trach in place, continue daily monitoring for secretions. No change in management at this time. Continue with aggressive suctioning multiple times a day per respiratory therapist. Monitor for signs of respiratory distress Thick secretions Duoneb 3ml INH Q6 and Mucomyst 4ml INH Q6H Robitussin 100mg PEG Q12H Scopolamine 1 patch TD Q3D [facility] Repeat CXR on 05/28/17: linear increased consolidative changes in the right mid- lung zone and left lung base which may represent atelectasis and/or infiltrate. Questionable trace left pleural effusion. moderate venous congestion. cardiomegaly. degenerative changes in the spine and shoulders Status: Chronic (6) Sacral ulcer Assessment & Plan: Healed Cont with offloading/cushioning/turning Continue frequent turning, protective ointment and skin checks. Status: Resolved (7) History of coronary artery disease Assessment & Plan: s/p cardiac stents on 06/13/15 Cont ASA 81mg via PEG daily Cont Coreg 3.125mg PEG BID Cont Plavix 75mg PO daily Status: Acute (8) Seizures Assessment & Plan: Continue Keppra 500mg PEG BID for seizure prophylaxis Monitor for activity Status: Acute (9) Lower extremity edema Assessment & Plan: Improved Continue to monitor Status: Acute (10) Constipation Assessment & Plan: Resolved Lactulose 20gm PEG once on 06/01/17 Lactulose 30gm PEG once on 05/20/17 Status: Acute (11) Prophylactic measure Assessment & Plan: Pepcid 20 mg PEG BID Lovenox 40mg SC daily SCDs and offloading boots continue to turn and reposition q2hrs Feeds increased to 50cc/hr. Per fabrication engineer (05/02/17): tube feed goal: Isosource 1.5 @ 50cc/h Will continue tube feeds @ 50 with goal of 60cc/h PICC line discontinued 05/22/17 Continue to monitor medication administrations and clinical presentation weekly labs. vasoline ointment applied to feet prn to prevent hyperkeratosis Stop feeding from 10pm-6am, placed into nursing communication (06/16/17) Status: Acute <Caden Mercedes - Last Filed: 06/17/17 20:35> Objective - Vital Signs/Intake and Output Vital Signs (last 24 hours): Temp Pulse Resp BP Pulse Ox 98.1 F 71 20 99/62 L 98 06/17/17 16:00 06/17/17 16:00 06/17/17 16:00 06/17/17 16:00 06/17/17 16:00 Intake and Output: 06/17/17 06/18/17 18:59 06:59 Intake Total 600 Output Total 0 Balance 600 - Medications Medications: Current Medications Acetaminophen (Tylenol 650mg/20.3ml Solution Ud) 650 mg PEG Q6 PRN PRN Reason: Fever >100.4 F Last Admin: 04/07/17 02:45 Dose: 650 mg Acetylcysteine (Acetylcysteine 20%) 4 ml INH RQ8 [facility] Last Admin: 06/17/17 19:43 Dose: 4 ml Albuterol/Ipratropium (Duoneb 3 Mg/0.5 Mg (3 Ml) Ud) 3 ml INH RQ6 [facility] Last Admin: 06/17/17 19:43 Dose: 3 ml Aspirin (Aspirin Chewable) 81 mg PEG DAILY [facility] Last Admin: 06/17/17 12:07 Dose: 81 mg Bethanechol Chloride (Urecholine) 50 mg PEG TID [facility] Last Admin: 06/17/17 18:02 Dose: 50 mg Carvedilol (Coreg) 3.125 mg PEG BID [facility] Last Admin: 06/17/17 18:02 Dose: 3.125 mg Clopidogrel Bisulfate (Plavix) 75 mg PEG DAILY [facility] Last Admin: 06/17/17 12:07 Dose: 75 mg Emollient Ointment (Vaseline Oint) 5 gm TOP DAILY PRN PRN Reason: Dry skin Enoxaparin Sodium (Lovenox) 40 mg SC DAILY [facility] Last Admin: 06/17/17 12:08 Dose: 40 mg Famotidine (Pepcid) 20 mg PEG BID [facility] Last Admin: 06/17/17 18:01 Dose: 20 mg Finasteride (Proscar) 5 mg PEG DAILY [facility] Last Admin: 06/17/17 12:08 Dose: 5 mg Levetiracetam (Keppra) 500 mg PEG BID [facility] Last Admin: 06/17/17 18:01 Dose: 500 mg Saccharomyces Boulardii (Florastor) 250 mg PEG DAILY [facility] Last Admin: 06/17/17 12:07 Dose: 250 mg Scopolamine (Transderm-Scop) 1 patch TD Q3D [facility] Last Admin: 06/16/17 00:08 Dose: 1 patch Tamsulosin HCl (Flomax) 0.4 mg PEG DAILY [facility] Last Admin: 06/17/17 12:08 Dose: 0.4 mg - Labs Labs: 06/16/17 11:28 06/16/17 07:26 PT 10.6 SECONDS (9.7-12.2) 11/24/15 14:10 INR 1.0 11/24/15 14:10 APTT 25 SECONDS (21-34) 11/24/15 14:10 Attending/Attestation - Attestation I have personally seen and examined this patient.: Yes I have fully participated in the care of the patient.: Yes I have reviewed all pertinent clinical information, including history, physical exam and plan: Yes Notes (Text): 06/17/17 20:33 Patient was seen and examined at 5:10 PM 06/17/17. Exam, assessment and plan were thoroughly gone over with the resident. Caden Mercedes D.O.
[2017-06-17] MEDS: Saccharomyces Boulardi 250 mg Cap PEG SCH (12:07)
[2017-06-17] MEDS: levETIRAcetam 100 mg/ml (5ml) Oral Syringe PEG SCH ×2 (12:07→18:01)
[2017-06-17] MEDS: Enoxaparin 40 mg Syringe SC SCH (12:08)
[2017-06-18] MEDS: Acetylcysteine 20% Inhal Soln (4ml) INH SCH ×3 (01:22→19:55)
[2017-06-18] MEDS: Albuterol-Ipratrop 3 mg / 0.5 (3 ml) UD INH SCH ×4 (01:22→19:55)
[2017-06-18] MEDS: Enoxaparin 40 mg Syringe SC SCH (10:03)
[2017-06-18] MEDS: Saccharomyces Boulardi 250 mg Cap PEG SCH (10:03)
[2017-06-18] MEDS: levETIRAcetam 100 mg/ml (5ml) Oral Syringe PEG SCH ×2 (10:04→18:31)
--- NOTE | 2017-06-18 10:20 | CP.PCM.PN ---
<AlirezaAmandamaylin E - Last Filed: 06/18/17 19:08> Subjective - Date & Time of Evaluation Date of Evaluation: 06/18/17 Time of Evaluation: 06:50 - Subjective Subjective: Medicine Note ( PGY 1) : Dr. Rani Mercedes's service Patient was seen and examined at bedside. Patient is unchanged clinically and continues to be arousable to touch. Patient is non-verbal, therefore ROS cannot be evaluated. As per nurse's note, there were no acute issues over night. Objective - Vital Signs/Intake and Output Vital Signs (last 24 hours): Temp Pulse Resp BP Pulse Ox 98 F 72 21 113/75 96 06/18/17 08:38 06/18/17 08:38 06/18/17 08:38 06/18/17 08:38 06/18/17 08:38 Intake and Output: 06/18/17 06/18/17 06:59 18:59 Intake Total 800 Output Total 400 Balance 400 - Medications Medications: Current Medications Acetaminophen (Tylenol 650mg/20.3ml Solution Ud) 650 mg PEG Q6 PRN PRN Reason: Fever >100.4 F Last Admin: 04/07/17 02:45 Dose: 650 mg Acetylcysteine (Acetylcysteine 20%) 4 ml INH RQ8 [facility] Last Admin: 06/18/17 07:28 Dose: 4 ml Albuterol/Ipratropium (Duoneb 3 Mg/0.5 Mg (3 Ml) Ud) 3 ml INH RQ6 [facility] Last Admin: 06/18/17 07:28 Dose: 3 ml Aspirin (Aspirin Chewable) 81 mg PEG DAILY [facility] Last Admin: 06/18/17 10:03 Dose: 81 mg Bethanechol Chloride (Urecholine) 50 mg PEG TID [facility] Last Admin: 06/17/17 18:02 Dose: 50 mg Carvedilol (Coreg) 3.125 mg PEG BID [facility] Last Admin: 06/18/17 10:03 Dose: 3.125 mg Clopidogrel Bisulfate (Plavix) 75 mg PEG DAILY [facility] Last Admin: 06/18/17 10:03 Dose: 75 mg Emollient Ointment (Vaseline Oint) 5 gm TOP DAILY PRN PRN Reason: Dry skin Enoxaparin Sodium (Lovenox) 40 mg SC DAILY [facility] Last Admin: 06/18/17 10:03 Dose: 40 mg Famotidine (Pepcid) 20 mg PEG BID [facility] Last Admin: 06/18/17 10:03 Dose: 20 mg Finasteride (Proscar) 5 mg PEG DAILY [facility] Last Admin: 06/18/17 10:04 Dose: 5 mg Levetiracetam (Keppra) 500 mg PEG BID [facility] Last Admin: 06/18/17 10:04 Dose: 500 mg Saccharomyces Boulardii (Florastor) 250 mg PEG DAILY [facility] Last Admin: 06/18/17 10:03 Dose: 250 mg Scopolamine (Transderm-Scop) 1 patch TD Q3D [facility] Last Admin: 06/16/17 00:08 Dose: 1 patch Tamsulosin HCl (Flomax) 0.4 mg PEG DAILY [facility] Last Admin: 06/18/17 10:03 Dose: 0.4 mg - Labs Labs: 06/16/17 11:28 06/16/17 07:26 PT 10.6 SECONDS (9.7-12.2) 11/24/15 14:10 INR 1.0 11/24/15 14:10 APTT 25 SECONDS (21-34) 11/24/15 14:10 - Constitutional Appears: No Acute Distress - ENT Exam ENT Exam: Mucous Membranes Moist - Respiratory Exam Respiratory Exam: Rales, NORMAL BREATHING PATTERN Additional comments: Limited exam due to patient's positioning and chronic condition Patient's trach is in place - Cardiovascular Exam Cardiovascular Exam: REGULAR RHYTHM, +S1, +S2 - GI/Abdominal Exam GI & Abdominal Exam: Soft, Normal Bowel Sounds - Extremities Exam Extremities Exam: absent: Pedal Edema - Neurological Exam Neurological Exam: absent: Alert, Oriented x3 - Skin Skin Exam: Dry, Warm Assessment and Plan (1) Anoxic encephalopathy Assessment & Plan: s/p cardiac arrest in 05/2015 no acute changes Pt has non spontaneous movements. continue current management. Continue tube feeds- at goal of 60 Florastor 250mg PO TID via PEG Status: Chronic Status: Chronic (2) Urinary tract infection Assessment & Plan: Stable Patient afebrile Completed course of Amikacin and Meropenem. amikacin discontinued on 04/18 ( total 10), Meropenem (04/13) total 7 days Urine culture (04/06/17): + Proteus Mirabilis Urine [place] catheter in place Ordered- new condom catheter 05/22/17 Tylenol 650mg po q6 PEG PRN UA and Urine Cx ordered on 05/28/17 showed gram negative rods --> Proteus Mirabilis Started Primaxin 500mg IV Q6 on 05/30/17--> will discontinue tomorrow WBC count stable as of 06/08/17 Status: Acute (3) Urinary retention Assessment & Plan: Unchanged 06/17/17: Nursing communication placed in: straight catherization with bladder scan> 100ml 06/08: urinary retention yesterday, was given 40mg lasix iv and patient was able to urinate through condom baker Take note condom cath not always securely in place so Is and Os are approximate as patient does wet bed Ordered- new condom catheter on 05/22/17 Flomax 0.4mg PEG daily Proscar 5mg PEG daily continue Bethanecol 50mg PEG TID- started after persistent retention and found to be effective. monitor I's and O's Check bladder scan for residual urine three times weekly Status: Acute (4) Watery stools Assessment & Plan: Resolved As per patient's note, patient's stool is formed Recent completion of Merrem, Amikacin C. diff negative (04/26/17) Stool leukocytes negative (04/26/17) stool culture (04/26/17) negative Status: Resolved (5) Respiratory failure Assessment & Plan: Trach in place, continue daily monitoring for secretions. No change in management at this time. Continue with aggressive suctioning multiple times a day per respiratory therapist. Monitor for signs of respiratory distress Duoneb 3ml INH Q6 and Mucomyst 4ml INH Q6H Robitussin 100mg PEG Q12H Scopolamine 1 patch TD Q3D [facility] Repeat CXR on 05/28/17: linear increased consolidative changes in the right mid- lung zone and left lung base which may represent atelectasis and/or infiltrate. Questionable trace left pleural effusion. moderate venous congestion. cardiomegaly. degenerative changes in the spine and shoulders Status: Chronic (6) Sacral ulcer Assessment & Plan: Healed Cont with offloading/cushioning/turning Continue frequent turning, protective ointment and skin checks. Status: Resolved (7) History of coronary artery disease Assessment & Plan: s/p cardiac stents on 06/13/15 Cont ASA 81mg via PEG daily Cont Coreg 3.125mg PEG BID Cont Plavix 75mg PO daily Status: Acute (8) Seizures Assessment & Plan: Continue Keppra 500mg PEG BID for seizure prophylaxis Monitor for activity Status: Acute (9) Lower extremity edema Assessment & Plan: Improved Continue to monitor Status: Acute (10) Constipation Assessment & Plan: Resolved Lactulose 20gm PEG once on 06/01/17 Lactulose 30gm PEG once on 05/20/17 Status: Acute (11) Prophylactic measure Assessment & Plan: Pepcid 20 mg PEG BID Lovenox 40mg SC daily SCDs and offloading boots continue to turn and reposition q2hrs Feeds increased to 50cc/hr. Per bag builder (05/02/17): tube feed goal: Isosource 1.5 @ 50cc/h Will continue tube feeds @ 50 with goal of 60cc/h PICC line discontinued 05/22/17 Continue to monitor medication administrations and clinical presentation weekly labs. vasoline ointment applied to feet prn to prevent hyperkeratosis Stop feeding from 10pm-6am, placed into nursing communication (06/16/17) Status: Acute Status: Acute <Caden Mercedes - Last Filed: 06/19/17 17:56> Objective - Vital Signs/Intake and Output Vital Signs (last 24 hours): Temp Pulse Resp BP Pulse Ox 98.3 F 75 20 121/82 100 06/19/17 15:57 06/19/17 15:57 06/19/17 15:57 06/19/17 15:57 06/19/17 15:57 Intake and Output: 06/19/17 06/19/17 06:59 18:59 Intake Total 1200 600 Output Total 300 600 Balance 900 0 - Medications Medications: Current Medications Acetaminophen (Tylenol 650mg/20.3ml Solution Ud) 650 mg PEG Q6 PRN PRN Reason: Fever >100.4 F Last Admin: 04/07/17 02:45 Dose: 650 mg Acetylcysteine (Acetylcysteine 20%) 4 ml INH RQ8 [facility] Last Admin: 06/19/17 08:25 Dose: 4 ml Albuterol/Ipratropium (Duoneb 3 Mg/0.5 Mg (3 Ml) Ud) 3 ml INH RQ6 [facility] Last Admin: 06/19/17 13:47 Dose: 3 ml Aspirin (Aspirin Chewable) 81 mg PEG DAILY [facility] Last Admin: 06/19/17 09:45 Dose: 81 mg Bethanechol Chloride (Urecholine) 50 mg PEG TID [facility] Last Admin: 06/19/17 17:50 Dose: 50 mg Carvedilol (Coreg) 3.125 mg PEG BID [facility] Last Admin: 06/19/17 17:50 Dose: 3.125 mg Clopidogrel Bisulfate (Plavix) 75 mg PEG DAILY [facility] Last Admin: 06/19/17 09:45 Dose: 75 mg Emollient Ointment (Vaseline Oint) 5 gm TOP DAILY PRN PRN Reason: Dry skin Enoxaparin Sodium (Lovenox) 40 mg SC DAILY [facility] Last Admin: 06/19/17 09:46 Dose: 40 mg Famotidine (Pepcid) 20 mg PEG BID [facility] Last Admin: 06/19/17 17:51 Dose: 20 mg Finasteride (Proscar) 5 mg PEG DAILY [facility] Last Admin: 06/19/17 09:45 Dose: 5 mg Levetiracetam (Keppra) 500 mg PEG BID [facility] Last Admin: 06/19/17 17:50 Dose: 500 mg Saccharomyces Boulardii (Florastor) 250 mg PEG DAILY [facility] Last Admin: 06/19/17 09:45 Dose: 250 mg Scopolamine (Transderm-Scop) 1 patch TD Q3D [facility] Last Admin: 06/18/17 20:22 Dose: 1 patch Tamsulosin HCl (Flomax) 0.4 mg PEG DAILY [facility] Last Admin: 06/19/17 09:45 Dose: 0.4 mg - Labs Labs: 06/16/17 11:28 06/16/17 07:26 PT 10.6 SECONDS (9.7-12.2) 11/24/15 14:10 INR 1.0 11/24/15 14:10 APTT 25 SECONDS (21-34) 11/24/15 14:10 Attending/Attestation - Attestation I have personally seen and examined this patient.: Yes I have fully participated in the care of the patient.: Yes I have reviewed all pertinent clinical information, including history, physical exam and plan: Yes Notes (Text): 06/19/17 17:56 Patient was seen and examined on 06/18/17. Exam, assessment and plan were thoroughly gone over with the resident. Caden Mercedes D.O.
[2017-06-19] MEDS: Acetylcysteine 20% Inhal Soln (4ml) INH SCH ×3 (01:23→19:46)
[2017-06-19] MEDS: Albuterol-Ipratrop 3 mg / 0.5 (3 ml) UD INH SCH ×4 (01:23→19:46)
[2017-06-19] MEDS: levETIRAcetam 100 mg/ml (5ml) Oral Syringe PEG SCH ×2 (09:45→17:50)
[2017-06-19] MEDS: Saccharomyces Boulardi 250 mg Cap PEG SCH (09:45)
[2017-06-19] MEDS: Enoxaparin 40 mg Syringe SC SCH (09:46)
--- NOTE | 2017-06-19 11:34 | CP.PCM.PN ---
<LauraAmanda valdezmaylin E - Last Filed: 06/19/17 17:24> Subjective - Date & Time of Evaluation Date of Evaluation: 06/19/17 Time of Evaluation: 07:50 - Subjective Subjective: Medicine Note (PGY 1): Dr. Rani Mercedes's service Patient was seen and examined at bedside. Patient was seen and examined at bedside. Patient is unchanged clinically and continues to be arousable to touch. Patient is non-verbal, therefore ROS cannot be evaluated. Patient is trach and PEG-tube is in place and intact. As per nurse's note, there were no acute issues over night. Patient's family members continue to visit during the evening time. Objective - Vital Signs/Intake and Output Vital Signs (last 24 hours): Temp Pulse Resp BP Pulse Ox 98.7 F 80 20 121/82 96 06/19/17 08:00 06/19/17 08:00 06/19/17 08:00 06/19/17 08:00 06/19/17 08:00 Intake and Output: 06/19/17 06/19/17 06:59 18:59 Intake Total 1200 Output Total 300 Balance 900 - Medications Medications: Current Medications Acetaminophen (Tylenol 650mg/20.3ml Solution Ud) 650 mg PEG Q6 PRN PRN Reason: Fever >100.4 F Last Admin: 04/07/17 02:45 Dose: 650 mg Acetylcysteine (Acetylcysteine 20%) 4 ml INH RQ8 [facility] Last Admin: 06/19/17 08:25 Dose: 4 ml Albuterol/Ipratropium (Duoneb 3 Mg/0.5 Mg (3 Ml) Ud) 3 ml INH RQ6 [facility] Last Admin: 06/19/17 08:26 Dose: 3 ml Aspirin (Aspirin Chewable) 81 mg PEG DAILY [facility] Last Admin: 06/19/17 09:45 Dose: 81 mg Bethanechol Chloride (Urecholine) 50 mg PEG TID [facility] Last Admin: 06/19/17 09:45 Dose: 50 mg Carvedilol (Coreg) 3.125 mg PEG BID [facility] Last Admin: 06/19/17 09:45 Dose: 3.125 mg Clopidogrel Bisulfate (Plavix) 75 mg PEG DAILY [facility] Last Admin: 06/19/17 09:45 Dose: 75 mg Emollient Ointment (Vaseline Oint) 5 gm TOP DAILY PRN PRN Reason: Dry skin Enoxaparin Sodium (Lovenox) 40 mg SC DAILY [facility] Last Admin: 06/19/17 09:46 Dose: 40 mg Famotidine (Pepcid) 20 mg PEG BID [facility] Last Admin: 06/19/17 09:45 Dose: 20 mg Finasteride (Proscar) 5 mg PEG DAILY [facility] Last Admin: 06/19/17 09:45 Dose: 5 mg Levetiracetam (Keppra) 500 mg PEG BID [facility] Last Admin: 06/19/17 09:45 Dose: 500 mg Saccharomyces Boulardii (Florastor) 250 mg PEG DAILY [facility] Last Admin: 06/19/17 09:45 Dose: 250 mg Scopolamine (Transderm-Scop) 1 patch TD Q3D [facility] Last Admin: 06/18/17 20:22 Dose: 1 patch Tamsulosin HCl (Flomax) 0.4 mg PEG DAILY [facility] Last Admin: 06/19/17 09:45 Dose: 0.4 mg - Labs Labs: 06/16/17 11:28 06/16/17 07:26 PT 10.6 SECONDS (9.7-12.2) 11/24/15 14:10 INR 1.0 11/24/15 14:10 APTT 25 SECONDS (21-34) 11/24/15 14:10 - Constitutional Appears: No Acute Distress - Head Exam Head Exam: ATRAUMATIC - Eye Exam Eye Exam: EOMI, Normal appearance - ENT Exam ENT Exam: Mucous Membranes Moist, Normal Exam - Neck Exam Additional comments: Trach in place, without abnormal secretion - Respiratory Exam Respiratory Exam: Rales, NORMAL BREATHING PATTERN - Cardiovascular Exam Cardiovascular Exam: REGULAR RHYTHM, +S1, +S2 - GI/Abdominal Exam GI & Abdominal Exam: Soft, Normal Bowel Sounds - Extremities Exam Extremities Exam: Normal Inspection Additional comments: SCD in place Pressure Ulcer protective boots in place - Skin Skin Exam: Dry, Normal Color, Warm Assessment and Plan (1) Anoxic encephalopathy Assessment & Plan: s/p cardiac arrest in 05/2015 no acute changes Pt has non spontaneous movements. continue current management. Continue tube feeds- at goal of 60 Florastor 250mg PO TID via PEG Status: Chronic (2) Urinary tract infection Assessment & Plan: Stable Patient afebrile Completed course of Amikacin and Meropenem. amikacin discontinued on 04/18 ( total 10), Meropenem (04/13) total 7 days Urine culture (04/06/17): + Proteus Mirabilis Urine [place] catheter in place Ordered- new condom catheter 05/22/17 Tylenol 650mg po q6 PEG PRN UA and Urine Cx ordered on 05/28/17 showed gram negative rods --> Proteus Mirabilis Started Primaxin 500mg IV Q6 on 05/30/17--> will discontinue tomorrow WBC count stable as of 06/08/17 Status: Acute (3) Urinary retention Assessment & Plan: Unchanged 06/17/17: Nursing communication placed in: straight catherization with bladder scan> 100ml 06/08: urinary retention yesterday, was given 40mg lasix iv and patient was able to urinate through condom baker Take note condom cath not always securely in place so Is and Os are approximate as patient does wet bed Ordered- new condom catheter on 05/22/17 Flomax 0.4mg PEG daily Proscar 5mg PEG daily continue Bethanecol 50mg PEG TID- started after persistent retention and found to be effective. monitor I's and O's Check bladder scan for residual urine three times weekly Status: Acute (4) Watery stools Assessment & Plan: Resolved As per patient's note, patient's stool is formed Recent completion of Merrem, Amikacin C. diff negative (04/26/17) Stool leukocytes negative (04/26/17) stool culture (04/26/17) negative Status: Resolved (5) Respiratory failure Assessment & Plan: Trach in place, continue daily monitoring for secretions. No change in management at this time. Continue with aggressive suctioning multiple times a day per respiratory therapist. Monitor for signs of respiratory distress Thick secretions Duoneb 3ml INH Q6 and Mucomyst 4ml INH Q6H Robitussin 100mg PEG Q12H Scopolamine 1 patch TD Q3D [facility] Repeat CXR on 05/28/17: linear increased consolidative changes in the right mid- lung zone and left lung base which may represent atelectasis and/or infiltrate. Questionable trace left pleural effusion. moderate venous congestion. cardiomegaly. degenerative changes in the spine and shoulders Status: Chronic (6) Sacral ulcer Assessment & Plan: Healed Cont with offloading/cushioning/turning Continue frequent turning, protective ointment and skin checks. Status: Resolved (7) History of coronary artery disease Assessment & Plan: s/p cardiac stents on 06/13/15 Cont ASA 81mg via PEG daily Cont Coreg 3.125mg PEG BID Cont Plavix 75mg PO daily Status: Acute (8) Seizures Assessment & Plan: Continue Keppra 500mg PEG BID for seizure prophylaxis Monitor for activity Status: Acute (9) Lower extremity edema Assessment & Plan: Improved Continue to monitor Status: Acute (10) Constipation Assessment & Plan: Resolved Lactulose 20gm PEG once on 06/01/17 Lactulose 30gm PEG once on 05/20/17 Status: Acute (11) Prophylactic measure Assessment & Plan: Pepcid 20 mg PEG BID Lovenox 40mg SC daily SCDs and offloading boots continue to turn and reposition q2hrs Feeds increased to 50cc/hr. Per plastic tubing insulation supervisor (05/02/17): tube feed goal: Isosource 1.5 @ 50cc/h Will continue tube feeds @ 50 with goal of 60cc/h PICC line discontinued 05/22/17 Continue to monitor medication administrations and clinical presentation weekly labs. vasoline ointment applied to feet prn to prevent hyperkeratosis Stop feeding from 10pm-6am, placed into nursing communication (06/16/17) Status: Acute <Caden Mercedes - Last Filed: 06/19/17 17:57> Objective - Vital Signs/Intake and Output Vital Signs (last 24 hours): Temp Pulse Resp BP Pulse Ox 98.3 F 75 20 121/82 100 06/19/17 15:57 06/19/17 15:57 06/19/17 15:57 06/19/17 15:57 06/19/17 15:57 Intake and Output: 06/19/17 06/19/17 06:59 18:59 Intake Total 1200 600 Output Total 300 600 Balance 900 0 - Medications Medications: Current Medications Acetaminophen (Tylenol 650mg/20.3ml Solution Ud) 650 mg PEG Q6 PRN PRN Reason: Fever >100.4 F Last Admin: 04/07/17 02:45 Dose: 650 mg Acetylcysteine (Acetylcysteine 20%) 4 ml INH RQ8 [facility] Last Admin: 06/19/17 08:25 Dose: 4 ml Albuterol/Ipratropium (Duoneb 3 Mg/0.5 Mg (3 Ml) Ud) 3 ml INH RQ6 [facility] Last Admin: 06/19/17 13:47 Dose: 3 ml Aspirin (Aspirin Chewable) 81 mg PEG DAILY [facility] Last Admin: 06/19/17 09:45 Dose: 81 mg Bethanechol Chloride (Urecholine) 50 mg PEG TID [facility] Last Admin: 06/19/17 17:50 Dose: 50 mg Carvedilol (Coreg) 3.125 mg PEG BID [facility] Last Admin: 06/19/17 17:50 Dose: 3.125 mg Clopidogrel Bisulfate (Plavix) 75 mg PEG DAILY [facility] Last Admin: 06/19/17 09:45 Dose: 75 mg Emollient Ointment (Vaseline Oint) 5 gm TOP DAILY PRN PRN Reason: Dry skin Enoxaparin Sodium (Lovenox) 40 mg SC DAILY [facility] Last Admin: 06/19/17 09:46 Dose: 40 mg Famotidine (Pepcid) 20 mg PEG BID [facility] Last Admin: 06/19/17 17:51 Dose: 20 mg Finasteride (Proscar) 5 mg PEG DAILY [facility] Last Admin: 06/19/17 09:45 Dose: 5 mg Levetiracetam (Keppra) 500 mg PEG BID [facility] Last Admin: 06/19/17 17:50 Dose: 500 mg Saccharomyces Boulardii (Florastor) 250 mg PEG DAILY [facility] Last Admin: 06/19/17 09:45 Dose: 250 mg Scopolamine (Transderm-Scop) 1 patch TD Q3D [facility] Last Admin: 06/18/17 20:22 Dose: 1 patch Tamsulosin HCl (Flomax) 0.4 mg PEG DAILY [facility] Last Admin: 06/19/17 09:45 Dose: 0.4 mg - Labs Labs: 06/16/17 11:28 06/16/17 07:26 PT 10.6 SECONDS (9.7-12.2) 11/24/15 14:10 INR 1.0 11/24/15 14:10 APTT 25 SECONDS (21-34) 11/24/15 14:10 Attending/Attestation - Attestation I have personally seen and examined this patient.: Yes I have fully participated in the care of the patient.: Yes I have reviewed all pertinent clinical information, including history, physical exam and plan: Yes Notes (Text): 06/19/17 17:57 Patient was seen and examined on 06/19/17. Exam, assessment and plan were thoroughly gone over with the resident. Caden Mercedes D.O.
[2017-06-20] MEDS: Acetylcysteine 20% Inhal Soln (4ml) INH SCH ×3 (00:25→16:48)
[2017-06-20] MEDS: Albuterol-Ipratrop 3 mg / 0.5 (3 ml) UD INH SCH ×4 (02:52→16:48)
--- NOTE | 2017-06-20 03:32 | CP.PCM.PN ---
<Ben Martell - Last Filed: 06/20/17 03:30> Subjective - Date & Time of Evaluation Date of Evaluation: 06/20/17 Time of Evaluation: 06:50 - Subjective Subjective: Patient was seen and examined at bedside. Patient is unchanged clinically and continues to be arousable to touch. As per nurse's note, there were no acute issues over night. Patient is unable to answer questions or review of systems due to an anoxic brain injury (05/2015). Objective - Vital Signs/Intake and Output Vital Signs (last 24 hours): Temp Pulse Resp BP Pulse Ox 98.6 F 68 20 106/74 96 06/20/17 00:43 06/20/17 00:43 06/20/17 00:43 06/20/17 00:43 06/20/17 00:43 Intake and Output: 06/19/17 06/20/17 18:59 06:59 Intake Total 600 650 Output Total 600 75 Balance 0 575 - Medications Medications: Current Medications Acetaminophen (Tylenol 650mg/20.3ml Solution Ud) 650 mg PEG Q6 PRN PRN Reason: Fever >100.4 F Last Admin: 04/07/17 02:45 Dose: 650 mg Acetylcysteine (Acetylcysteine 20%) 4 ml INH RQ8 [facility] Last Admin: 06/20/17 00:25 Dose: 4 ml Albuterol/Ipratropium (Duoneb 3 Mg/0.5 Mg (3 Ml) Ud) 3 ml INH RQ6 [facility] Last Admin: 06/20/17 02:52 Dose: 3 ml Aspirin (Aspirin Chewable) 81 mg PEG DAILY [facility] Last Admin: 06/19/17 09:45 Dose: 81 mg Bethanechol Chloride (Urecholine) 50 mg PEG TID [facility] Last Admin: 06/19/17 17:50 Dose: 50 mg Carvedilol (Coreg) 3.125 mg PEG BID [facility] Last Admin: 06/19/17 17:50 Dose: 3.125 mg Clopidogrel Bisulfate (Plavix) 75 mg PEG DAILY [facility] Last Admin: 06/19/17 09:45 Dose: 75 mg Emollient Ointment (Vaseline Oint) 5 gm TOP DAILY PRN PRN Reason: Dry skin Enoxaparin Sodium (Lovenox) 40 mg SC DAILY [facility] Last Admin: 06/19/17 09:46 Dose: 40 mg Famotidine (Pepcid) 20 mg PEG BID [facility] Last Admin: 06/19/17 17:51 Dose: 20 mg Finasteride (Proscar) 5 mg PEG DAILY [facility] Last Admin: 06/19/17 09:45 Dose: 5 mg Levetiracetam (Keppra) 500 mg PEG BID [facility] Last Admin: 06/19/17 17:50 Dose: 500 mg Saccharomyces Boulardii (Florastor) 250 mg PEG DAILY [facility] Last Admin: 06/19/17 09:45 Dose: 250 mg Scopolamine (Transderm-Scop) 1 patch TD Q3D [facility] Last Admin: 06/18/17 20:22 Dose: 1 patch Tamsulosin HCl (Flomax) 0.4 mg PEG DAILY [facility] Last Admin: 06/19/17 09:45 Dose: 0.4 mg - Labs Labs: 06/16/17 11:28 06/16/17 07:26 PT 10.6 SECONDS (9.7-12.2) 11/24/15 14:10 INR 1.0 11/24/15 14:10 APTT 25 SECONDS (21-34) 11/24/15 14:10 - Constitutional Appears: Chronically Ill - Head Exam Head Exam: NORMAL INSPECTION - Eye Exam Eye Exam: Normal appearance - ENT Exam ENT Exam: Mucous Membranes Moist - Neck Exam Additional comments: Trach in place, without abnormal secretion - Respiratory Exam Respiratory Exam: Clear to Ausculation Bilateral, NORMAL BREATHING PATTERN - Cardiovascular Exam Cardiovascular Exam: REGULAR RHYTHM, +S1, +S2. absent: Murmur - GI/Abdominal Exam GI & Abdominal Exam: Soft, Tenderness, Normal Bowel Sounds - Rectal Exam Rectal Exam: Deferred - Exam Additional comments: condom baker in place - Extremities Exam Additional comments: SCD in place Pressure Ulcer protective boots in place - Neurological Exam Neurological Exam: Alert, Awake - Psychiatric Exam Psychiatric exam: Normal Affect, Normal Mood - Skin Skin Exam: Dry, Intact, Normal Color, Warm Assessment and Plan - Assessment and Plan (Free Text) Assessment: (1) Anoxic encephalopathy Assessment & Plan: s/p cardiac arrest in 05/2015 no acute changes Pt has non spontaneous movements. continue current management. Continue tube feeds- at goal of 60 Florastor 250mg PO TID via PEG Status: Chronic (2) Urinary tract infection Assessment & Plan: Stable Patient afebrile Completed course of Amikacin and Meropenem. amikacin discontinued on 04/18 ( total 10), Meropenem (04/13) total 7 days Urine culture (04/06/17): + Proteus Mirabilis Urine [place] catheter in place Ordered- new condom catheter 05/22/17 Tylenol 650mg po q6 PEG PRN UA and Urine Cx ordered on 05/28/17 showed gram negative rods --> Proteus Mirabilis Started Primaxin 500mg IV Q6 on 05/30/17--> will discontinue tomorrow WBC count stable as of 06/08/17 Status: Acute (3) Urinary retention Assessment & Plan: Unchanged 06/17/17: Nursing communication placed in: straight catherization with bladder scan> 100ml 06/08: urinary retention yesterday, was given 40mg lasix iv and patient was able to urinate through condom baker Take note condom cath not always securely in place so Is and Os are approximate as patient does wet bed Ordered- new condom catheter on 05/22/17 Flomax 0.4mg PEG daily Proscar 5mg PEG daily continue Bethanecol 50mg PEG TID- started after persistent retention and found to be effective. monitor I's and O's Check bladder scan for residual urine three times weekly Status: Acute (4) Watery stools Assessment & Plan: Resolved As per patient's note, patient's stool is formed Recent completion of Merrem, Amikacin C. diff negative (04/26/17) Stool leukocytes negative (04/26/17) stool culture (04/26/17) negative Status: Resolved (5) Respiratory failure Assessment & Plan: Trach in place, continue daily monitoring for secretions. No change in management at this time. Continue with aggressive suctioning multiple times a day per respiratory therapist. Monitor for signs of respiratory distress Thick secretions Duoneb 3ml INH Q6 and Mucomyst 4ml INH Q6H Robitussin 100mg PEG Q12H Scopolamine 1 patch TD Q3D JOO Repeat CXR on 05/28/17: linear increased consolidative changes in the right mid- lung zone and left lung base which may represent atelectasis and/or infiltrate. Questionable trace left pleural effusion. moderate venous congestion. cardiomegaly. degenerative changes in the spine and shoulders Status: Chronic (6) Sacral ulcer Assessment & Plan: Healed Cont with offloading/cushioning/turning Continue frequent turning, protective ointment and skin checks. Status: Resolved (7) History of coronary artery disease Assessment & Plan: s/p cardiac stents on 06/13/15 Cont ASA 81mg via PEG daily Cont Coreg 3.125mg PEG BID Cont Plavix 75mg PO daily Status: Acute (8) Seizures Assessment & Plan: Continue Keppra 500mg PEG BID for seizure prophylaxis Monitor for activity Status: Acute (9) Lower extremity edema Assessment & Plan: Improved Continue to monitor Status: Acute (10) Constipation Assessment & Plan: Resolved Lactulose 20gm PEG once on 06/01/17 Lactulose 30gm PEG once on 05/20/17 Status: Acute (11) Prophylactic measure Assessment & Plan: Pepcid 20 mg PEG BID Lovenox 40mg SC daily SCDs and offloading boots continue to turn and reposition q2hrs Feeds increased to 50cc/hr. Per distribution sales representative (05/02/17): tube feed goal: Isosource 1.5 @ 50cc/h Will continue tube feeds @ 50 with goal of 60cc/h PICC line discontinued 05/22/17 Continue to monitor medication administrations and clinical presentation weekly labs. vasoline ointment applied to feet prn to prevent hyperkeratosis Stop feeding from 10pm-6am, placed into nursing communication (06/16/17) Status: Acute <Caden Mercedes - Last Filed: 06/20/17 17:53> Objective - Vital Signs/Intake and Output Vital Signs (last 24 hours): Temp Pulse Resp BP Pulse Ox 99.1 F 81 20 130/79 100 06/20/17 08:51 06/20/17 08:51 06/20/17 08:51 06/20/17 08:51 06/20/17 08:51 Intake and Output: 06/20/17 06/20/17 06:59 18:59 Intake Total 900 400 Output Total 475 750 Balance 425 -350 - Medications Medications: Current Medications Acetaminophen (Tylenol 650mg/20.3ml Solution Ud) 650 mg PEG Q6 PRN PRN Reason: Fever >100.4 F Last Admin: 04/07/17 02:45 Dose: 650 mg Acetylcysteine (Acetylcysteine 20%) 4 ml INH RQ8 [facility] Last Admin: 06/20/17 16:48 Dose: 4 ml Albuterol/Ipratropium (Duoneb 3 Mg/0.5 Mg (3 Ml) Ud) 3 ml INH RQ6 [facility] Last Admin: 06/20/17 16:48 Dose: 3 ml Aspirin (Aspirin Chewable) 81 mg PEG DAILY [facility] Last Admin: 06/20/17 10:24 Dose: 81 mg Bethanechol Chloride (Urecholine) 50 mg PEG TID [facility] Last Admin: 06/20/17 13:27 Dose: 50 mg Carvedilol (Coreg) 3.125 mg PEG BID [facility] Last Admin: 06/20/17 10:25 Dose: 3.125 mg Clopidogrel Bisulfate (Plavix) 75 mg PEG DAILY [facility] Last Admin: 06/20/17 10:24 Dose: 75 mg Emollient Ointment (Vaseline Oint) 5 gm TOP DAILY PRN PRN Reason: Dry skin Enoxaparin Sodium (Lovenox) 40 mg SC DAILY [facility] Last Admin: 06/20/17 10:24 Dose: 40 mg Famotidine (Pepcid) 20 mg PEG BID [facility] Last Admin: 06/20/17 10:24 Dose: 20 mg Finasteride (Proscar) 5 mg PEG DAILY [facility] Last Admin: 06/20/17 10:25 Dose: 5 mg Levetiracetam (Keppra) 500 mg PEG BID [facility] Last Admin: 06/20/17 10:24 Dose: 500 mg Saccharomyces Boulardii (Florastor) 250 mg PEG DAILY [facility] Last Admin: 06/20/17 10:23 Dose: 250 mg Scopolamine (Transderm-Scop) 1 patch TD Q3D [facility] Last Admin: 06/18/17 20:22 Dose: 1 patch Tamsulosin HCl (Flomax) 0.4 mg PEG DAILY [facility] Last Admin: 06/20/17 10:24 Dose: 0.4 mg - Labs Labs: 06/16/17 11:28 06/16/17 07:26 PT 10.6 SECONDS (9.7-12.2) 11/24/15 14:10 INR 1.0 11/24/15 14:10 APTT 25 SECONDS (21-34) 11/24/15 14:10 Attending/Attestation - Attestation I have personally seen and examined this patient.: Yes I have fully participated in the care of the patient.: Yes I have reviewed all pertinent clinical information, including history, physical exam and plan: Yes Notes (Text): 06/20/17 17:50 Patient was seen and examined at 2:30 PM 06/20/17 Assessments: Anoxic Encephalopathy Hx UTI 05/28/17 Hx Urinary Retention: currently producing adequate urine Hx Watery Stools: patient had a bowel movement at the time of my skin ulcer check exam (there were no ulcers present) and stool was brown and soft/pasty Hx Respiratory Failure: trach Hx Sacral Ulcers: there are no ulcers present on any of the bony prominences/ sacrum Hx CAD Hx Seizure Hx LE Edema: no edema present at the time of my exam Hx Constipation Continue current management. Caden Mercedes D.O.
[2017-06-20] MEDS: Saccharomyces Boulardi 250 mg Cap PEG SCH (10:23)
[2017-06-20] MEDS: Enoxaparin 40 mg Syringe SC SCH (10:24)
[2017-06-20] MEDS: levETIRAcetam 100 mg/ml (5ml) Oral Syringe PEG SCH ×2 (10:24→17:57)
[2017-06-21] MEDS: Albuterol-Ipratrop 3 mg / 0.5 (3 ml) UD INH SCH ×4 (01:35→16:31)
[2017-06-21] MEDS: Acetylcysteine 20% Inhal Soln (4ml) INH SCH ×3 (01:35→16:31)
--- NOTE | 2017-06-21 01:58 | CP.PCM.PN ---
<Ben Martell - Last Filed: 06/21/17 01:56> Subjective - Date & Time of Evaluation Date of Evaluation: 06/21/17 Time of Evaluation: 06:40 - Subjective Subjective: PGY-[address] Caden Mercedes's Medicine Service: Patient was seen today, he is clinically unchanged and continues to be arousable to touch. As per nurse's note, there were no acute issues over night. Patient is unable to answer questions or review of systems due to an anoxic brain injury (05/2015). Objective - Vital Signs/Intake and Output Vital Signs (last 24 hours): Temp Pulse Resp BP Pulse Ox 98.1 F 69 20 98/65 L 99 06/20/17 23:49 06/20/17 23:49 06/20/17 23:49 06/20/17 23:49 06/20/17 23:49 Intake and Output: 06/20/17 06/21/17 18:59 06:59 Intake Total 400 650 Output Total 750 0 Balance -350 650 - Medications Medications: Current Medications Acetaminophen (Tylenol 650mg/20.3ml Solution Ud) 650 mg PEG Q6 PRN PRN Reason: Fever >100.4 F Last Admin: 04/07/17 02:45 Dose: 650 mg Acetylcysteine (Acetylcysteine 20%) 4 ml INH RQ8 [facility] Last Admin: 06/21/17 01:35 Dose: 4 ml Albuterol/Ipratropium (Duoneb 3 Mg/0.5 Mg (3 Ml) Ud) 3 ml INH RQ6 [facility] Last Admin: 06/21/17 01:35 Dose: 3 ml Aspirin (Aspirin Chewable) 81 mg PEG DAILY [facility] Last Admin: 06/20/17 10:24 Dose: 81 mg Bethanechol Chloride (Urecholine) 50 mg PEG TID [facility] Last Admin: 06/20/17 17:58 Dose: 50 mg Carvedilol (Coreg) 3.125 mg PEG BID [facility] Last Admin: 06/20/17 17:57 Dose: 3.125 mg Clopidogrel Bisulfate (Plavix) 75 mg PEG DAILY [facility] Last Admin: 06/20/17 10:24 Dose: 75 mg Emollient Ointment (Vaseline Oint) 5 gm TOP DAILY PRN PRN Reason: Dry skin Enoxaparin Sodium (Lovenox) 40 mg SC DAILY [facility] Last Admin: 06/20/17 10:24 Dose: 40 mg Famotidine (Pepcid) 20 mg PEG BID [facility] Last Admin: 06/20/17 17:57 Dose: 20 mg Finasteride (Proscar) 5 mg PEG DAILY [facility] Last Admin: 06/20/17 10:25 Dose: 5 mg Levetiracetam (Keppra) 500 mg PEG BID [facility] Last Admin: 06/20/17 17:57 Dose: 500 mg Saccharomyces Boulardii (Florastor) 250 mg PEG DAILY [facility] Last Admin: 06/20/17 10:23 Dose: 250 mg Scopolamine (Transderm-Scop) 1 patch TD Q3D [facility] Last Admin: 06/18/17 20:22 Dose: 1 patch Tamsulosin HCl (Flomax) 0.4 mg PEG DAILY [facility] Last Admin: 06/20/17 10:24 Dose: 0.4 mg - Labs Labs: 06/16/17 11:28 06/16/17 07:26 PT 10.6 SECONDS (9.7-12.2) 11/24/15 14:10 INR 1.0 11/24/15 14:10 APTT 25 SECONDS (21-34) 11/24/15 14:10 - Constitutional Appears: No Acute Distress - Head Exam Head Exam: NORMAL INSPECTION - Eye Exam Eye Exam: Normal appearance - ENT Exam ENT Exam: Mucous Membranes Moist Additional comments: Trach in place, without abnormal secretion - Neck Exam Neck Exam: Normal Inspection - Respiratory Exam Respiratory Exam: Clear to Ausculation Bilateral, NORMAL BREATHING PATTERN - Cardiovascular Exam Cardiovascular Exam: REGULAR RHYTHM, +S1, +S2. absent: Murmur - GI/Abdominal Exam GI & Abdominal Exam: Soft, Normal Bowel Sounds. absent: Tenderness - Rectal Exam Rectal Exam: Deferred - Extremities Exam Extremities Exam: Normal Capillary Refill, Normal Inspection Additional comments: SCD in place Pressure Ulcer protective boots in place - Neurological Exam Neurological Exam: Alert, Awake - Skin Skin Exam: Dry, Intact, Normal Color, Warm Assessment and Plan - Assessment and Plan (Free Text) Assessment: (1) Anoxic encephalopathy Assessment & Plan: s/p cardiac arrest in 05/2015 no acute changes Pt has non spontaneous movements. continue current management. Continue tube feeds- at goal of 60 Florastor 250mg PO TID via PEG Status: Chronic (2) Urinary tract infection Assessment & Plan: Stable Patient afebrile Completed course of Amikacin and Meropenem. amikacin discontinued on 04/18 ( total 10), Meropenem (04/13) total 7 days Urine culture (04/06/17): + Proteus Mirabilis Urine [place] catheter in place Ordered- new condom catheter 05/22/17 Tylenol 650mg po q6 PEG PRN UA and Urine Cx ordered on 05/28/17 showed gram negative rods --> Proteus Mirabilis Started Primaxin 500mg IV Q6 on 05/30/17--> will discontinue tomorrow WBC count stable as of 06/08/17 Status: Acute (3) Urinary retention Assessment & Plan: Unchanged 06/17/17: Nursing communication placed in: straight catherization with bladder scan> 100ml 06/08: urinary retention yesterday, was given 40mg lasix iv and patient was able to urinate through condom baker Take note condom cath not always securely in place so Is and Os are approximate as patient does wet bed Ordered- new condom catheter on 05/22/17 Flomax 0.4mg PEG daily Proscar 5mg PEG daily continue Bethanecol 50mg PEG TID- started after persistent retention and found to be effective. monitor I's and O's Check bladder scan for residual urine three times weekly Status: Acute (4) Watery stools Assessment & Plan: Resolved As per patient's note, patient's stool is formed Recent completion of Merrem, Amikacin C. diff negative (04/26/17) Stool leukocytes negative (04/26/17) stool culture (04/26/17) negative Status: Resolved (5) Respiratory failure Assessment & Plan: Trach in place, continue daily monitoring for secretions. No change in management at this time. Continue with aggressive suctioning multiple times a day per respiratory therapist. Monitor for signs of respiratory distress Thick secretions Duoneb 3ml INH Q6 and Mucomyst 4ml INH Q6H Robitussin 100mg PEG Q12H Scopolamine 1 patch TD Q3D JOO Repeat CXR on 05/28/17: linear increased consolidative changes in the right mid- lung zone and left lung base which may represent atelectasis and/or infiltrate. Questionable trace left pleural effusion. moderate venous congestion. cardiomegaly. degenerative changes in the spine and shoulders Status: Chronic (6) Sacral ulcer Assessment & Plan: Healed Cont with offloading/cushioning/turning Continue frequent turning, protective ointment and skin checks. Status: Resolved (7) History of coronary artery disease Assessment & Plan: s/p cardiac stents on 06/13/15 Cont ASA 81mg via PEG daily Cont Coreg 3.125mg PEG BID Cont Plavix 75mg PO daily Status: Acute (8) Seizures Assessment & Plan: Continue Keppra 500mg PEG BID for seizure prophylaxis Monitor for activity Status: Acute (9) Lower extremity edema Assessment & Plan: Improved Continue to monitor Status: Acute (10) Constipation Assessment & Plan: Resolved Lactulose 20gm PEG once on 06/01/17 Lactulose 30gm PEG once on 05/20/17 Status: Acute (11) Prophylactic measure Assessment & Plan: Pepcid 20 mg PEG BID Lovenox 40mg SC daily SCDs and offloading boots continue to turn and reposition q2hrs Feeds increased to 50cc/hr. Per building maintenance mechanic (05/02/17): tube feed goal: Isosource 1.5 @ 50cc/h Will continue tube feeds @ 50 with goal of 60cc/h PICC line discontinued 05/22/17 Continue to monitor medication administrations and clinical presentation weekly labs. vasoline ointment applied to feet prn to prevent hyperkeratosis Stop feeding from 10pm-6am, placed into nursing communication (06/16/17) Status: Acute <Caden Mercedes - Last Filed: 06/21/17 12:40> Objective - Vital Signs/Intake and Output Vital Signs (last 24 hours): Temp Pulse Resp BP Pulse Ox 98.3 F 69 20 132/86 100 06/21/17 08:54 06/21/17 08:54 06/21/17 08:54 06/21/17 08:54 06/21/17 08:54 Intake and Output: 06/21/17 06/21/17 06:59 18:59 Intake Total 1000 Output Total 350 Balance 650 - Medications Medications: Current Medications Acetaminophen (Tylenol 650mg/20.3ml Solution Ud) 650 mg PEG Q6 PRN PRN Reason: Fever >100.4 F Last Admin: 04/07/17 02:45 Dose: 650 mg Acetylcysteine (Acetylcysteine 20%) 4 ml INH RQ8 [facility] Last Admin: 06/21/17 08:24 Dose: 4 ml Albuterol/Ipratropium (Duoneb 3 Mg/0.5 Mg (3 Ml) Ud) 3 ml INH RQ6 [facility] Last Admin: 06/21/17 08:24 Dose: 3 ml Aspirin (Aspirin Chewable) 81 mg PEG DAILY [facility] Last Admin: 06/21/17 10:24 Dose: 81 mg Bethanechol Chloride (Urecholine) 50 mg PEG TID [facility] Last Admin: 06/21/17 10:25 Dose: 50 mg Carvedilol (Coreg) 3.125 mg PEG BID [facility] Last Admin: 06/21/17 10:25 Dose: 3.125 mg Clopidogrel Bisulfate (Plavix) 75 mg PEG DAILY [facility] Last Admin: 06/21/17 10:25 Dose: 75 mg Emollient Ointment (Vaseline Oint) 5 gm TOP DAILY PRN PRN Reason: Dry skin Enoxaparin Sodium (Lovenox) 40 mg SC DAILY [facility] Last Admin: 06/21/17 10:25 Dose: 40 mg Famotidine (Pepcid) 20 mg PEG BID [facility] Last Admin: 06/21/17 10:25 Dose: 20 mg Finasteride (Proscar) 5 mg PEG DAILY [facility] Last Admin: 06/21/17 10:25 Dose: 5 mg Levetiracetam (Keppra) 500 mg PEG BID [facility] Last Admin: 06/21/17 10:26 Dose: 500 mg Saccharomyces Boulardii (Florastor) 250 mg PEG DAILY [facility] Last Admin: 06/21/17 10:25 Dose: 250 mg Scopolamine (Transderm-Scop) 1 patch TD Q3D [facility] Last Admin: 06/18/17 20:22 Dose: 1 patch Tamsulosin HCl (Flomax) 0.4 mg PEG DAILY [facility] Last Admin: 06/21/17 10:25 Dose: 0.4 mg - Labs Labs: 06/16/17 11:28 06/16/17 07:26 PT 10.6 SECONDS (9.7-12.2) 11/24/15 14:10 INR 1.0 11/24/15 14:10 APTT 25 SECONDS (21-34) 11/24/15 14:10 Attending/Attestation - Attestation I have personally seen and examined this patient.: Yes I have fully participated in the care of the patient.: Yes I have reviewed all pertinent clinical information, including history, physical exam and plan: Yes Notes (Text): 06/21/17 12:35 Patient was seen and examined at 12:30 PM 06/21/17 with the help of DANII Leung Assessments: Anoxic Encephalopathy Hx UTI 05/28/17 Hx Urinary Retention: currently producing adequate urine Hx Watery Stools: patient had a bowel movement (brown soft/pasty) at the time of my skin ulcer check exam (there were no ulcers present) Hx Respiratory Failure: trach Hx Sacral Ulcers: there are no ulcers present on any of the bony prominences/ sacrum. However it was noted today that there is a small linear skin tear in the sacral area (within scar tissue from prior ulcers). Hx CAD Hx Seizure Hx LE Edema: no edema present at the time of my exam Hx Constipation Continue current management and follow up weekly Thursday labs on 06/22/17.
[2017-06-21] MEDS: Enoxaparin 40 mg Syringe SC SCH (10:25)
[2017-06-21] MEDS: Saccharomyces Boulardi 250 mg Cap PEG SCH (10:25)
[2017-06-21] MEDS: levETIRAcetam 100 mg/ml (5ml) Oral Syringe PEG SCH ×2 (10:26→17:51)
[2017-06-22] MEDS: Acetylcysteine 20% Inhal Soln (4ml) INH SCH ×3 (01:00→23:34)
[2017-06-22] MEDS: Albuterol-Ipratrop 3 mg / 0.5 (3 ml) UD INH SCH ×4 (01:00→23:34)
[2017-06-22 07:58] LABS: BASO % 0.5 % (0.0-2.0); EOS # 0.3 K/uL (0.0-0.7); HEMOGLOBIN 12.2 g/dL (12.0-18.0); MEAN CELL VOLUME 88.6 fL (80.0-94.0); MEAN CORPUSCULAR HEMOGLOBIN 29.1 pg (27.0-31.0); MEAN CORPUSCULAR HGB CONC 32.8 g/dL (33.0-37.0); MEAN PLATELET VOLUME 8.9 fL (7.2-11.7); MONO # 0.8 K/uL (0.0-0.8); MONO % 9.4 % (0.0-10.0); NEUT % 61.1 % (50.0-75.0); NRBC % 0.1 % (0.0-2.0); RBC 4.19 Mil/uL (4.40-5.90); RED CELL DISTRIBUTION WIDTH 16.5 % (11.5-14.5); WHITE BLOOD COUNT 8.2 K/uL (4.8-10.8)
[2017-06-22 08:09] LABS: ALBUMIN 3.5 g/dL (3.5-5.0)
[2017-06-22 08:11] LABS: GFR NON-AFRICAN AMERICAN > 60
[2017-06-22 08:12] LABS: ALB/GLOB RATIO 0.7 (1.0-2.1); ALT/SGPT 77 U/L (21-72); AST/SGOT 38 U/L (17-59); BLOOD UREA NITROGEN 9 mg/dL (9-20)
[2017-06-22 08:13] LABS: CALCIUM 8.7 mg/dl (8.6-10.4)
--- NOTE | 2017-06-22 08:31 | CP.PCM.PN ---
<Tanya Campos - Last Filed: 06/22/17 14:16> Subjective - Date & Time of Evaluation Date of Evaluation: 06/22/17 Time of Evaluation: 07:00 - Subjective Subjective: Medicine Note for Dr. Ying Patient was seen and examined at bedside. Patient was turned today, no new sacral ulcers were noted. ROS unattainable due to patient's anoxic brain injury (05/2015) Objective - Vital Signs/Intake and Output Vital Signs (last 24 hours): Temp Pulse Resp BP Pulse Ox 99 F 80 20 122/78 98 06/22/17 08:11 06/22/17 08:11 06/22/17 08:11 06/22/17 08:11 06/22/17 08:11 Intake and Output: 06/22/17 06/22/17 06:59 18:59 Intake Total 1000 Output Total 1100 Balance -100 - Medications Medications: Current Medications Acetaminophen (Tylenol 650mg/20.3ml Solution Ud) 650 mg PEG Q6 PRN PRN Reason: Fever >100.4 F Last Admin: 04/07/17 02:45 Dose: 650 mg Acetylcysteine (Acetylcysteine 20%) 4 ml INH RQ8 [facility] Last Admin: 06/22/17 07:13 Dose: Not Given Albuterol/Ipratropium (Duoneb 3 Mg/0.5 Mg (3 Ml) Ud) 3 ml INH RQ8 [facility] Last Admin: 06/22/17 07:14 Dose: 3 ml Aspirin (Aspirin Chewable) 81 mg PEG DAILY [facility] Last Admin: 06/21/17 10:24 Dose: 81 mg Bethanechol Chloride (Urecholine) 50 mg PEG TID [facility] Last Admin: 06/21/17 17:51 Dose: 50 mg Carvedilol (Coreg) 3.125 mg PEG BID [facility] Last Admin: 06/21/17 17:52 Dose: 3.125 mg Clopidogrel Bisulfate (Plavix) 75 mg PEG DAILY [facility] Last Admin: 06/21/17 10:25 Dose: 75 mg Emollient Ointment (Vaseline Oint) 5 gm TOP DAILY PRN PRN Reason: Dry skin Enoxaparin Sodium (Lovenox) 40 mg SC DAILY [facility] Last Admin: 06/21/17 10:25 Dose: 40 mg Famotidine (Pepcid) 20 mg PEG BID [facility] Last Admin: 06/21/17 17:51 Dose: 20 mg Finasteride (Proscar) 5 mg PEG DAILY [facility] Last Admin: 06/21/17 10:25 Dose: 5 mg Levetiracetam (Keppra) 500 mg PEG BID [facility] Last Admin: 06/21/17 17:51 Dose: 500 mg Saccharomyces Boulardii (Florastor) 250 mg PEG DAILY [facility] Last Admin: 06/21/17 10:25 Dose: 250 mg Scopolamine (Transderm-Scop) 1 patch TD Q3D [facility] Last Admin: 06/21/17 21:30 Dose: 1 patch Tamsulosin HCl (Flomax) 0.4 mg PEG DAILY [facility] Last Admin: 06/21/17 10:25 Dose: 0.4 mg - Labs Labs: 06/22/17 07:45 06/22/17 07:45 PT 10.6 SECONDS (9.7-12.2) 11/24/15 14:10 INR 1.0 11/24/15 14:10 APTT 25 SECONDS (21-34) 11/24/15 14:10 - Constitutional Appears: No Acute Distress - Head Exam Head Exam: NORMAL INSPECTION, NORMOCEPHALIC - Eye Exam Eye Exam: EOMI, Normal appearance, PERRL Pupil Exam: NORMAL ACCOMODATION - ENT Exam ENT Exam: Mucous Membranes Moist, Normal Exam - Neck Exam Additional comments: Trach in place, without abnormal secretion - Respiratory Exam Respiratory Exam: Clear to Ausculation Bilateral, NORMAL BREATHING PATTERN. absent: Wheezes - Cardiovascular Exam Cardiovascular Exam: REGULAR RHYTHM, RRR - GI/Abdominal Exam GI & Abdominal Exam: Soft, Hyperactive Bowel Sounds, Normal Bowel Sounds. absent: Distended, Tenderness Additional comments: PEG c/d/i - Extremities Exam Extremities Exam: Normal Inspection. absent: Pedal Edema, Tenderness Additional comments: SCD in place Pressure Ulcer protective boots in place - Neurological Exam Neurological Exam: Altered - Psychiatric Exam Psychiatric exam: Normal Affect, Normal Mood - Skin Skin Exam: Dry, Intact, Normal Color, Warm Assessment and Plan - Assessment and Plan (Free Text) Plan: Anoxic encephalopathy Assessment & Plan: s/p cardiac arrest in 05/2015 no acute changes Pt has non spontaneous movements. continue current management. Continue tube feeds- at goal of 60, feedings held at night due to fluid overload Status: Chronic Urinary tract infection Assessment & Plan: Resolved Patient afebrile Tylenol 650mg po q6 PEG PRN UA and Urine Cx ordered on 05/28/17 showed gram negative rods --> Proteus Mirabilis Started Primaxin 500mg IV Q6 on 05/30/17-- DC WBC count stable as of 06/08/17 Status: Acute Urinary retention Assessment & Plan: Unchanged 06/17/17: Nursing communication placed in: straight catherization with bladder scan> 100ml 06/08: urinary retention yesterday, was given 40mg lasix iv and patient was able to urinate through condom baker Take note condom cath not always securely in place so Is and Os are approximate as patient does wet bed Ordered- new condom catheter on 05/22/17 Flomax 0.4mg PEG daily Proscar 5mg PEG daily continue Bethanecol 50mg PEG TID- started after persistent retention and found to be effective. monitor I's and O's Check bladder scan for residual urine three times weekly Status: Acute Respiratory failure Assessment & Plan: Trach in place, continue daily monitoring for secretions. No change in management at this time. Continue with aggressive suctioning multiple times a day per respiratory therapist. Monitor for signs of respiratory distress Thick secretions Duoneb 3ml INH Q6 and Mucomyst 4ml INH Q6H Robitussin 100mg PEG Q12H Scopolamine 1 patch TD Q3D JOO Repeat CXR on 05/28/17: linear increased consolidative changes in the right mid- lung zone and left lung base which may represent atelectasis and/or infiltrate. Questionable trace left pleural effusion. moderate venous congestion. cardiomegaly. degenerative changes in the spine and shoulders Status: Chronic Sacral ulcer Assessment & Plan: Healed Cont with offloading/cushioning/turning Continue frequent turning, protective ointment and skin checks. Status: Resolved History of coronary artery disease Assessment & Plan: s/p cardiac stents on 06/13/15 Cont ASA 81mg via PEG daily Cont Coreg 3.125mg PEG BID Cont Plavix 75mg PO daily Status: Acute Seizures Assessment & Plan: Continue Keppra 500mg PEG BID for seizure prophylaxis Monitor for activity Status: Acute Lower extremity edema Assessment & Plan: Improved Continue to monitor Status: Acute Prophylactic measure Assessment & Plan: Pepcid 20 mg PEG BID Lovenox 40mg SC daily SCDs and offloading boots continue to turn and reposition q2hrs Feeds increased to 50cc/hr. Per caramel maker (05/02/17): tube feed goal: Isosource 1.5 @ 50cc/h Will continue tube feeds @ 50 with goal of 60cc/h Continue to monitor medication administrations and clinical presentation weekly labs. vasoline ointment applied to feet prn to prevent hyperkeratosis Stop feeding from 10pm-6am, placed into nursing communication (06/16/17) DW Beth Ruiz DO, PGY-1 <Donnell Ying M - Last Filed: 06/22/17 16:04> Objective - Vital Signs/Intake and Output Vital Signs (last 24 hours): Temp Pulse Resp BP Pulse Ox 98.5 F 82 20 125/80 100 06/22/17 15:00 06/22/17 15:00 06/22/17 15:00 06/22/17 15:00 06/22/17 15:00 Intake and Output: 06/22/17 06/22/17 06:59 18:59 Intake Total 1000 600 Output Total 1100 Balance -100 600 - Medications Medications: Current Medications Acetaminophen (Tylenol 650mg/20.3ml Solution Ud) 650 mg PEG Q6 PRN PRN Reason: Fever >100.4 F Last Admin: 04/07/17 02:45 Dose: 650 mg Acetylcysteine (Acetylcysteine 20%) 4 ml INH RQ8 [facility] Last Admin: 06/22/17 07:13 Dose: Not Given Albuterol/Ipratropium (Duoneb 3 Mg/0.5 Mg (3 Ml) Ud) 3 ml INH RQ8 [facility] Last Admin: 06/22/17 15:47 Dose: 3 ml Aspirin (Aspirin Chewable) 81 mg PEG DAILY [facility] Last Admin: 06/22/17 10:29 Dose: 81 mg Bethanechol Chloride (Urecholine) 50 mg PEG TID [facility] Last Admin: 06/22/17 14:07 Dose: 50 mg Carvedilol (Coreg) 3.125 mg PEG BID [facility] Last Admin: 06/22/17 10:29 Dose: 3.125 mg Clopidogrel Bisulfate (Plavix) 75 mg PEG DAILY [facility] Last Admin: 06/22/17 10:29 Dose: 75 mg Emollient Ointment (Vaseline Oint) 5 gm TOP DAILY PRN PRN Reason: Dry skin Enoxaparin Sodium (Lovenox) 40 mg SC DAILY [facility] Last Admin: 06/22/17 10:29 Dose: 40 mg Famotidine (Pepcid) 20 mg PEG BID [facility] Last Admin: 06/22/17 10:29 Dose: 20 mg Finasteride (Proscar) 5 mg PEG DAILY [facility] Last Admin: 06/22/17 10:29 Dose: 5 mg Levetiracetam (Keppra) 500 mg PEG BID [facility] Last Admin: 06/22/17 10:30 Dose: 500 mg Saccharomyces Boulardii (Florastor) 250 mg PEG DAILY [facility] Last Admin: 06/22/17 10:29 Dose: 250 mg Scopolamine (Transderm-Scop) 1 patch TD Q3D [facility] Last Admin: 06/21/17 21:30 Dose: 1 patch Tamsulosin HCl (Flomax) 0.4 mg PEG DAILY [facility] Last Admin: 06/22/17 10:29 Dose: 0.4 mg - Labs Labs: 06/22/17 07:45 06/22/17 07:45 PT 10.6 SECONDS (9.7-12.2) 11/24/15 14:10 INR 1.0 11/24/15 14:10 APTT 25 SECONDS (21-34) 11/24/15 14:10 Attending/Attestation - Attestation I have personally seen and examined this patient.: Yes I have fully participated in the care of the patient.: Yes I have reviewed all pertinent clinical information, including history, physical exam and plan: Yes Notes (Text): 06/22/17 16:03 Patient seen and examined at bedside with the resident Patient's skin and examined. Patient does not have any decubitus ulcer in the sacral region. We will continue current management Bladder scan for urinary retention to be done by the nursing I discussed the plan of care with the resident I agree with the history and physical and assessment/plan documented by the resident.
[2017-06-22] MEDS: Enoxaparin 40 mg Syringe SC SCH (10:29)
[2017-06-22] MEDS: Saccharomyces Boulardi 250 mg Cap PEG SCH (10:29)
[2017-06-22] MEDS: levETIRAcetam 100 mg/ml (5ml) Oral Syringe PEG SCH ×2 (10:30→17:26)
[2017-06-23] MEDS: Acetylcysteine 20% Inhal Soln (4ml) INH SCH ×2 (07:35→15:56)
[2017-06-23] MEDS: Albuterol-Ipratrop 3 mg / 0.5 (3 ml) UD INH SCH ×2 (07:35→15:56)
[2017-06-23] MEDS: levETIRAcetam 100 mg/ml (5ml) Oral Syringe PEG SCH ×2 (09:41→18:03)
[2017-06-23] MEDS: Enoxaparin 40 mg Syringe SC SCH (09:41)
[2017-06-23] MEDS: Saccharomyces Boulardi 250 mg Cap PEG SCH (09:42)
--- NOTE | 2017-06-23 10:13 | CP.PCM.PN ---
<Tanya Campos - Last Filed: 06/23/17 10:11> Subjective - Date & Time of Evaluation Date of Evaluation: 06/23/17 Time of Evaluation: 07:00 - Subjective Subjective: Medicine Note for Dr. Ying Patient was seen and examined at bedside. ROS unattainable due to patient's anoxic brain injury (05/2015). Bladder scan was performed yesterday. Patient was retaining 600mL. Unable to straight cath x 2. Baker cath was attempted to be placed without success. Patient was repositioned and urinated 500cc. Will bladder massage the patient during rounds, this worked during the weekend, allowing patient to void. Objective - Vital Signs/Intake and Output Vital Signs (last 24 hours): Temp Pulse Resp BP Pulse Ox 98.5 F 83 20 118/73 100 06/23/17 07:23 06/23/17 07:23 06/23/17 07:23 06/23/17 07:23 06/23/17 07:23 Intake and Output: 06/23/17 06/23/17 06:59 18:59 Intake Total 350 Output Total 450 Balance -100 - Medications Medications: Current Medications Acetaminophen (Tylenol 650mg/20.3ml Solution Ud) 650 mg PEG Q6 PRN PRN Reason: Fever >100.4 F Last Admin: 04/07/17 02:45 Dose: 650 mg Acetylcysteine (Acetylcysteine 20%) 4 ml INH RQ8 [facility] Last Admin: 06/23/17 07:35 Dose: 4 ml Albuterol/Ipratropium (Duoneb 3 Mg/0.5 Mg (3 Ml) Ud) 3 ml INH RQ8 [facility] Last Admin: 06/23/17 07:35 Dose: 3 ml Aspirin (Aspirin Chewable) 81 mg PEG DAILY [facility] Last Admin: 06/23/17 09:42 Dose: 81 mg Bethanechol Chloride (Urecholine) 50 mg PEG TID [facility] Last Admin: 06/23/17 09:41 Dose: 50 mg Carvedilol (Coreg) 3.125 mg PEG BID [facility] Last Admin: 06/23/17 09:42 Dose: 3.125 mg Clopidogrel Bisulfate (Plavix) 75 mg PEG DAILY [facility] Last Admin: 06/23/17 09:42 Dose: 75 mg Emollient Ointment (Vaseline Oint) 5 gm TOP DAILY PRN PRN Reason: Dry skin Enoxaparin Sodium (Lovenox) 40 mg SC DAILY [facility] Last Admin: 06/23/17 09:41 Dose: 40 mg Famotidine (Pepcid) 20 mg PEG BID [facility] Last Admin: 06/23/17 09:42 Dose: 20 mg Finasteride (Proscar) 5 mg PEG DAILY [facility] Last Admin: 06/23/17 09:41 Dose: 5 mg Levetiracetam (Keppra) 500 mg PEG BID [facility] Last Admin: 06/23/17 09:41 Dose: 500 mg Saccharomyces Boulardii (Florastor) 250 mg PEG DAILY [facility] Last Admin: 06/23/17 09:42 Dose: 250 mg Scopolamine (Transderm-Scop) 1 patch TD Q3D [facility] Last Admin: 06/21/17 21:30 Dose: 1 patch Tamsulosin HCl (Flomax) 0.4 mg PEG DAILY [facility] Last Admin: 06/23/17 09:41 Dose: 0.4 mg - Labs Labs: 06/22/17 07:45 06/22/17 07:45 PT 10.6 SECONDS (9.7-12.2) 11/24/15 14:10 INR 1.0 11/24/15 14:10 APTT 25 SECONDS (21-34) 11/24/15 14:10 - Constitutional Appears: No Acute Distress - Head Exam Head Exam: NORMAL INSPECTION, NORMOCEPHALIC - Eye Exam Eye Exam: EOMI, Normal appearance Pupil Exam: NORMAL ACCOMODATION - ENT Exam ENT Exam: Mucous Membranes Moist - Neck Exam Additional comments: Trach in place, without abnormal secretion - Respiratory Exam Respiratory Exam: Clear to Ausculation Bilateral, NORMAL BREATHING PATTERN. absent: Wheezes - Cardiovascular Exam Cardiovascular Exam: REGULAR RHYTHM, RRR - GI/Abdominal Exam GI & Abdominal Exam: Soft, Normal Bowel Sounds. absent: Tenderness Additional comments: PEG c/d/i - Extremities Exam Extremities Exam: absent: Pedal Edema, Tenderness Additional comments: SCD in place Pressure Ulcer protective boots in place - Neurological Exam Neurological Exam: Awake - Skin Skin Exam: Dry, Intact, Normal Color, Warm Assessment and Plan - Assessment and Plan (Free Text) Plan: Anoxic encephalopathy Assessment & Plan: s/p cardiac arrest in 05/2015 no acute changes Pt has non spontaneous movements. continue current management. Continue tube feeds- at goal of 60, feedings held at night due to fluid overload Status: Chronic Urinary tract infection Assessment & Plan: Resolved Patient afebrile WBC count stable as of 06/22/17 Tylenol 650mg po q6 PEG PRN UA and Urine Cx ordered on 05/28/17 showed gram negative rods --> Proteus Mirabilis was started Primaxin 500mg IV Q6 on 05/30/17-- DC Status: Acute Urinary retention Assessment & Plan: Unchanged 06/23/17: Patient will need to have daily bladder massage to allow for complete voiding 06/17/17: Nursing communication placed in: straight catherization with bladder scan> 100ml 06/08: urinary retention yesterday, was given 40mg lasix iv and patient was able to urinate through condom baker Take note condom cath not always securely in place so Is and Os are approximate as patient does wet bed Ordered- new condom catheter on 05/22/17 Flomax 0.4mg PEG daily Proscar 5mg PEG daily continue Bethanecol 50mg PEG TID- started after persistent retention and found to be effective. monitor I's and O's Check bladder scan for residual urine three times weekly Status: Acute Respiratory failure Assessment & Plan: Trach in place, continue daily monitoring for secretions. No change in management at this time. Continue with aggressive suctioning multiple times a day per respiratory therapist. Monitor for signs of respiratory distress Thick secretions Duoneb 3ml INH Q6 and Mucomyst 4ml INH Q6H Robitussin 100mg PEG Q12H Scopolamine 1 patch TD Q3D JOO Repeat CXR on 05/28/17: linear increased consolidative changes in the right mid- lung zone and left lung base which may represent atelectasis and/or infiltrate. Questionable trace left pleural effusion. moderate venous congestion. cardiomegaly. degenerative changes in the spine and shoulders Status: Chronic Sacral ulcer Assessment & Plan: Healed Cont with offloading/cushioning/turning Continue frequent turning, protective ointment and skin checks. Status: Resolved History of coronary artery disease Assessment & Plan: s/p cardiac stents on 06/13/15 Cont ASA 81mg via PEG daily Cont Coreg 3.125mg PEG BID Cont Plavix 75mg PO daily Status: Acute Seizures Assessment & Plan: Continue Keppra 500mg PEG BID for seizure prophylaxis Monitor for activity Status: Acute Lower extremity edema Assessment & Plan: Improved Continue to monitor Status: Acute Prophylactic measure Assessment & Plan: Pepcid 20 mg PEG BID Lovenox 40mg SC daily SCDs and offloading boots continue to turn and reposition q2hrs Feeds increased to 50cc/hr. Per continuous conveyor screen drier (05/02/17): tube feed goal: Isosource 1.5 @ 50cc/h Will continue tube feeds @ 50 with goal of 60cc/h Continue to monitor medication administrations and clinical presentation weekly labs. vasoline ointment applied to feet prn to prevent hyperkeratosis Stop feeding from 10pm-6am, placed into nursing communication (06/16/17) DW Beth Ruiz DO, PGY-1 <Donnell Ying M - Last Filed: 06/23/17 16:01> Objective - Vital Signs/Intake and Output Vital Signs (last 24 hours): Temp Pulse Resp BP Pulse Ox 98.5 F 83 20 118/73 100 06/23/17 07:23 06/23/17 07:23 06/23/17 07:23 06/23/17 07:23 06/23/17 07:23 Intake and Output: 06/23/17 06/23/17 06:59 18:59 Intake Total 350 600 Output Total 450 500 Balance -100 100 - Medications Medications: Current Medications Acetaminophen (Tylenol 650mg/20.3ml Solution Ud) 650 mg PEG Q6 PRN PRN Reason: Fever >100.4 F Last Admin: 04/07/17 02:45 Dose: 650 mg Acetylcysteine (Acetylcysteine 20%) 4 ml INH RQ8 [facility] Last Admin: 06/23/17 15:56 Dose: 4 ml Albuterol/Ipratropium (Duoneb 3 Mg/0.5 Mg (3 Ml) Ud) 3 ml INH RQ8 [facility] Last Admin: 06/23/17 15:56 Dose: 3 ml Aspirin (Aspirin Chewable) 81 mg PEG DAILY [facility] Last Admin: 06/23/17 09:42 Dose: 81 mg Bethanechol Chloride (Urecholine) 50 mg PEG TID [facility] Last Admin: 06/23/17 14:41 Dose: 50 mg Carvedilol (Coreg) 3.125 mg PEG BID [facility] Last Admin: 06/23/17 09:42 Dose: 3.125 mg Clopidogrel Bisulfate (Plavix) 75 mg PEG DAILY [facility] Last Admin: 06/23/17 09:42 Dose: 75 mg Emollient Ointment (Vaseline Oint) 5 gm TOP DAILY PRN PRN Reason: Dry skin Famotidine (Pepcid) 20 mg PEG BID [facility] Last Admin: 06/23/17 09:42 Dose: 20 mg Finasteride (Proscar) 5 mg PEG DAILY [facility] Last Admin: 06/23/17 09:41 Dose: 5 mg Levetiracetam (Keppra) 500 mg PEG BID [facility] Last Admin: 06/23/17 09:41 Dose: 500 mg Saccharomyces Boulardii (Florastor) 250 mg PEG DAILY [facility] Last Admin: 06/23/17 09:42 Dose: 250 mg Scopolamine (Transderm-Scop) 1 patch TD Q3D [facility] Last Admin: 06/21/17 21:30 Dose: 1 patch Tamsulosin HCl (Flomax) 0.4 mg PEG DAILY [facility] Last Admin: 06/23/17 09:41 Dose: 0.4 mg - Labs Labs: 06/22/17 07:45 06/22/17 07:45 PT 10.6 SECONDS (9.7-12.2) 11/24/15 14:10 INR 1.0 11/24/15 14:10 APTT 25 SECONDS (21-34) 11/24/15 14:10 Attending/Attestation - Attestation I have personally seen and examined this patient.: Yes I have fully participated in the care of the patient.: Yes I have reviewed all pertinent clinical information, including history, physical exam and plan: Yes Notes (Text): 06/23/17 16:01 Patient was seen and examined at bedside with the residents Thisis in clinical condition Continue current management Discussed the plan of care with the resident and agree with assessment and plan documented above
[2017-06-24] MEDS: Albuterol-Ipratrop 3 mg / 0.5 (3 ml) UD INH SCH ×4 (00:31→23:37)
[2017-06-24] MEDS: Acetylcysteine 20% Inhal Soln (4ml) INH SCH ×5 (00:35→23:36)
--- NOTE | 2017-06-24 09:14 | CP.PCM.PN ---
<Tanya Campos - Last Filed: 06/24/17 09:12> Subjective - Date & Time of Evaluation Date of Evaluation: 06/24/17 Time of Evaluation: 07:00 - Subjective Subjective: Medicine Note for Dr. Ying Patient was seen and examined at bedside. ROS unattainable due to patient's anoxic brain injury (05/2015). Will continue to bladder massage the patient during rounds, this worked during the weekend, allowing patient to void. Objective - Vital Signs/Intake and Output Vital Signs (last 24 hours): Temp Pulse Resp BP Pulse Ox 98.7 F 82 20 104/63 100 06/24/17 07:36 06/24/17 07:36 06/24/17 07:36 06/24/17 07:36 06/24/17 07:36 Intake and Output: 06/24/17 06/24/17 06:59 18:59 Intake Total 550 Output Total 251 Balance 299 - Medications Medications: Current Medications Acetaminophen (Tylenol 650mg/20.3ml Solution Ud) 650 mg PEG Q6 PRN PRN Reason: Fever >100.4 F Last Admin: 04/07/17 02:45 Dose: 650 mg Acetylcysteine (Acetylcysteine 20%) 4 ml INH RQ8 [facility] Last Admin: 06/24/17 08:06 Dose: 4 ml Albuterol/Ipratropium (Duoneb 3 Mg/0.5 Mg (3 Ml) Ud) 3 ml INH RQ8 [facility] Last Admin: 06/24/17 08:05 Dose: 3 ml Aspirin (Aspirin Chewable) 81 mg PEG DAILY [facility] Last Admin: 06/23/17 09:42 Dose: 81 mg Bethanechol Chloride (Urecholine) 50 mg PEG TID [facility] Last Admin: 06/23/17 18:03 Dose: 50 mg Carvedilol (Coreg) 3.125 mg PEG BID [facility] Last Admin: 06/23/17 18:03 Dose: 3.125 mg Clopidogrel Bisulfate (Plavix) 75 mg PEG DAILY [facility] Last Admin: 06/23/17 09:42 Dose: 75 mg Emollient Ointment (Vaseline Oint) 5 gm TOP DAILY PRN PRN Reason: Dry skin Famotidine (Pepcid) 20 mg PEG BID [facility] Last Admin: 06/23/17 18:03 Dose: 20 mg Finasteride (Proscar) 5 mg PEG DAILY [facility] Last Admin: 06/23/17 09:41 Dose: 5 mg Levetiracetam (Keppra) 500 mg PEG BID [facility] Last Admin: 06/23/17 18:03 Dose: 500 mg Saccharomyces Boulardii (Florastor) 250 mg PEG DAILY [facility] Last Admin: 06/23/17 09:42 Dose: 250 mg Scopolamine (Transderm-Scop) 1 patch TD Q3D [facility] Last Admin: 06/21/17 21:30 Dose: 1 patch Tamsulosin HCl (Flomax) 0.4 mg PEG DAILY [facility] Last Admin: 06/23/17 09:41 Dose: 0.4 mg - Labs Labs: 06/22/17 07:45 06/22/17 07:45 PT 10.6 SECONDS (9.7-12.2) 11/24/15 14:10 INR 1.0 11/24/15 14:10 APTT 25 SECONDS (21-34) 11/24/15 14:10 - Constitutional Appears: No Acute Distress - Head Exam Head Exam: NORMAL INSPECTION, NORMOCEPHALIC - Eye Exam Eye Exam: EOMI, Normal appearance, PERRL Pupil Exam: NORMAL ACCOMODATION - ENT Exam Additional comments: Trach in place, without abnormal secretion - Respiratory Exam Respiratory Exam: Clear to Ausculation Bilateral, NORMAL BREATHING PATTERN. absent: Wheezes - Cardiovascular Exam Cardiovascular Exam: REGULAR RHYTHM, RRR - GI/Abdominal Exam GI & Abdominal Exam: Soft, Normal Bowel Sounds. absent: Tenderness Additional comments: PEG c/d/i - Extremities Exam Extremities Exam: Normal Inspection. absent: Pedal Edema, Tenderness Additional comments: SCD in place Pressure Ulcer protective boots in place - Neurological Exam Neurological Exam: Awake - Skin Skin Exam: Dry, Intact, Normal Color, Warm Assessment and Plan - Assessment and Plan (Free Text) Plan: Anoxic encephalopathy Assessment & Plan: s/p cardiac arrest in 05/2015 no acute changes Pt has non spontaneous movements. continue current management. Continue tube feeds- at goal of 60, feedings held at night due to fluid overload Status: Chronic Urinary tract infection Assessment & Plan: Resolved Patient afebrile WBC count stable as of 06/22/17 Tylenol 650mg po q6 PEG PRN UA and Urine Cx ordered on 05/28/17 showed gram negative rods --> Proteus Mirabilis was started Primaxin 500mg IV Q6 on 05/30/17-- DC Status: Acute Urinary retention Assessment & Plan: Unchanged 06/23/17: Patient will need to have daily bladder massage to allow for complete voiding 06/17/17: Nursing communication placed in: straight catherization with bladder scan> 100ml 06/08: urinary retention yesterday, was given 40mg lasix iv and patient was able to urinate through condom baker Take note condom cath not always securely in place so Is and Os are approximate as patient does wet bed Ordered- new condom catheter on 05/22/17 Flomax 0.4mg PEG daily Proscar 5mg PEG daily continue Bethanecol 50mg PEG TID- started after persistent retention and found to be effective. monitor I's and O's Check bladder scan for residual urine three times weekly Status: Acute Respiratory failure Assessment & Plan: Trach in place, continue daily monitoring for secretions. No change in management at this time. Continue with aggressive suctioning multiple times a day per respiratory therapist. Monitor for signs of respiratory distress Thick secretions Duoneb 3ml INH Q6 and Mucomyst 4ml INH Q6H Robitussin 100mg PEG Q12H Scopolamine 1 patch TD Q3D JOO Repeat CXR on 05/28/17: linear increased consolidative changes in the right mid- lung zone and left lung base which may represent atelectasis and/or infiltrate. Questionable trace left pleural effusion. moderate venous congestion. cardiomegaly. degenerative changes in the spine and shoulders Status: Chronic Sacral ulcer Assessment & Plan: Healed Cont with offloading/cushioning/turning Continue frequent turning, protective ointment and skin checks. Status: Resolved History of coronary artery disease Assessment & Plan: s/p cardiac stents on 06/13/15 Cont ASA 81mg via PEG daily Cont Coreg 3.125mg PEG BID Cont Plavix 75mg PO daily Status: Acute Seizures Assessment & Plan: Continue Keppra 500mg PEG BID for seizure prophylaxis Monitor for activity Status: Acute Lower extremity edema Assessment & Plan: Improved Continue to monitor Status: Acute Prophylactic measure Assessment & Plan: Pepcid 20 mg PEG BID Lovenox 40mg SC daily SCDs and offloading boots continue to turn and reposition q2hrs Feeds increased to 50cc/hr. Per hat body sorter (05/02/17): tube feed goal: Isosource 1.5 @ 50cc/h Will continue tube feeds @ 50 with goal of 60cc/h Continue to monitor medication administrations and clinical presentation weekly labs. vasoline ointment applied to feet prn to prevent hyperkeratosis Stop feeding from 10pm-6am, placed into nursing communication (06/16/17) Beth Robin Dr., DO, PGY-1 <Donnell Ying M - Last Filed: 06/24/17 16:51> Objective - Vital Signs/Intake and Output Vital Signs (last 24 hours): Temp Pulse Resp BP Pulse Ox 98.7 F 82 20 104/63 100 06/24/17 07:36 06/24/17 07:36 06/24/17 07:36 06/24/17 07:36 06/24/17 07:36 Intake and Output: 06/24/17 06/24/17 06:59 18:59 Intake Total 550 600 Output Total 251 701 Balance 299 -101 - Medications Medications: Current Medications Acetaminophen (Tylenol 650mg/20.3ml Solution Ud) 650 mg PEG Q6 PRN PRN Reason: Fever >100.4 F Last Admin: 04/07/17 02:45 Dose: 650 mg Acetylcysteine (Acetylcysteine 20%) 4 ml INH RQ8 [facility] Last Admin: 06/24/17 08:06 Dose: 4 ml Albuterol/Ipratropium (Duoneb 3 Mg/0.5 Mg (3 Ml) Ud) 3 ml INH RQ8 [facility] Last Admin: 06/24/17 08:05 Dose: 3 ml Aspirin (Aspirin Chewable) 81 mg PEG DAILY [facility] Last Admin: 06/24/17 11:09 Dose: 81 mg Bethanechol Chloride (Urecholine) 50 mg PEG TID [facility] Last Admin: 06/24/17 13:37 Dose: 50 mg Carvedilol (Coreg) 3.125 mg PEG BID [facility] Last Admin: 06/24/17 11:10 Dose: 3.125 mg Clopidogrel Bisulfate (Plavix) 75 mg PEG DAILY [facility] Last Admin: 06/24/17 11:10 Dose: 75 mg Emollient Ointment (Vaseline Oint) 5 gm TOP DAILY PRN PRN Reason: Dry skin Enoxaparin Sodium (Lovenox) 40 mg SC DAILY [facility] Last Admin: 06/24/17 12:49 Dose: 40 mg Famotidine (Pepcid) 20 mg PEG BID [facility] Last Admin: 06/24/17 11:10 Dose: 20 mg Finasteride (Proscar) 5 mg PEG DAILY [facility] Last Admin: 06/24/17 11:10 Dose: 5 mg Levetiracetam (Keppra) 500 mg PEG BID [facility] Last Admin: 06/24/17 11:10 Dose: 500 mg Saccharomyces Boulardii (Florastor) 250 mg PEG DAILY [facility] Last Admin: 06/24/17 11:10 Dose: 250 mg Scopolamine (Transderm-Scop) 1 patch TD Q3D [facility] Last Admin: 06/21/17 21:30 Dose: 1 patch Tamsulosin HCl (Flomax) 0.4 mg PEG DAILY [facility] Last Admin: 06/24/17 11:10 Dose: 0.4 mg - Labs Labs: 06/22/17 07:45 06/22/17 07:45 PT 10.6 SECONDS (9.7-12.2) 11/24/15 14:10 INR 1.0 11/24/15 14:10 APTT 25 SECONDS (21-34) 11/24/15 14:10 Attending/Attestation - Attestation I have personally seen and examined this patient.: Yes I have fully participated in the care of the patient.: Yes I have reviewed all pertinent clinical information, including history, physical exam and plan: Yes Notes (Text): 06/24/17 16:51 Patient was seen and examined at bedside with the resident [place] no change in clinical condition Continue current medical management Awaiting placement Discussed the plan of care with the resident I agree with the assessment /plan documented above.
[2017-06-24] MEDS: Saccharomyces Boulardi 250 mg Cap PEG SCH (11:10)
[2017-06-24] MEDS: levETIRAcetam 100 mg/ml (5ml) Oral Syringe PEG SCH ×2 (11:10→17:12)
[2017-06-24] MEDS: Enoxaparin 40 mg Syringe SC SCH (12:49)
[2017-06-25] MEDS: Acetylcysteine 20% Inhal Soln (4ml) INH SCH ×2 (07:19→16:25)
[2017-06-25] MEDS: Albuterol-Ipratrop 3 mg / 0.5 (3 ml) UD INH SCH ×2 (07:19→16:24)
[2017-06-25] MEDS: Saccharomyces Boulardi 250 mg Cap PEG SCH (10:15)
[2017-06-25] MEDS: Enoxaparin 40 mg Syringe SC SCH (10:15)
[2017-06-25] MEDS: levETIRAcetam 100 mg/ml (5ml) Oral Syringe PEG SCH ×2 (10:15→18:24)
--- NOTE | 2017-06-25 16:48 | CP.PCM.PN ---
<Al Srivastava - Last Filed: 06/25/17 17:04> Subjective - Date & Time of Evaluation Date of Evaluation: 06/25/17 Time of Evaluation: 07:00 - Subjective Subjective: PGY1 for Dr. Ying Patient was seen and examined at bedside. ROS unattainable due to patient's anoxic brain injury (05/2015) Will continue to bladder massage the patient during rounds to help patient to void. Objective - Vital Signs/Intake and Output Vital Signs (last 24 hours): Temp Pulse Resp BP Pulse Ox 98.1 F 74 18 130/85 98 06/25/17 15:00 06/25/17 15:00 06/25/17 15:00 06/25/17 15:00 06/25/17 15:00 Intake and Output: 06/25/17 06/25/17 06:59 18:59 Intake Total 600 350 Output Total 300 1250 Balance 300 -900 - Medications Medications: Current Medications Acetaminophen (Tylenol 650mg/20.3ml Solution Ud) 650 mg PEG Q6 PRN PRN Reason: Fever >100.4 F Last Admin: 04/07/17 02:45 Dose: 650 mg Acetylcysteine (Acetylcysteine 20%) 4 ml INH RQ8 [facility] Last Admin: 06/25/17 16:25 Dose: 4 ml Albuterol/Ipratropium (Duoneb 3 Mg/0.5 Mg (3 Ml) Ud) 3 ml INH RQ8 [facility] Last Admin: 06/25/17 16:24 Dose: 3 ml Aspirin (Aspirin Chewable) 81 mg PEG DAILY [facility] Last Admin: 06/25/17 10:15 Dose: 81 mg Bethanechol Chloride (Urecholine) 50 mg PEG TID [facility] Last Admin: 06/25/17 13:27 Dose: 50 mg Carvedilol (Coreg) 3.125 mg PEG BID [facility] Last Admin: 06/25/17 10:15 Dose: 3.125 mg Clopidogrel Bisulfate (Plavix) 75 mg PEG DAILY [facility] Last Admin: 06/25/17 10:15 Dose: 75 mg Emollient Ointment (Vaseline Oint) 5 gm TOP DAILY PRN PRN Reason: Dry skin Enoxaparin Sodium (Lovenox) 40 mg SC DAILY [facility] Last Admin: 06/25/17 10:15 Dose: 40 mg Famotidine (Pepcid) 20 mg PEG BID [facility] Last Admin: 06/25/17 10:15 Dose: 20 mg Finasteride (Proscar) 5 mg PEG DAILY [facility] Last Admin: 06/25/17 10:15 Dose: 5 mg Levetiracetam (Keppra) 500 mg PEG BID [facility] Last Admin: 06/25/17 10:15 Dose: 500 mg Saccharomyces Boulardii (Florastor) 250 mg PEG DAILY [facility] Last Admin: 06/25/17 10:15 Dose: 250 mg Scopolamine (Transderm-Scop) 1 patch TD Q3D [facility] Last Admin: 06/24/17 21:40 Dose: 1 patch Tamsulosin HCl (Flomax) 0.4 mg PEG DAILY [facility] Last Admin: 06/25/17 10:14 Dose: 0.4 mg - Labs Labs: 06/22/17 07:45 06/22/17 07:45 PT 10.6 SECONDS (9.7-12.2) 11/24/15 14:10 INR 1.0 11/24/15 14:10 APTT 25 SECONDS (21-34) 11/24/15 14:10 - Constitutional Appears: Non-toxic, No Acute Distress - ENT Exam Additional comments: Trach in place. No abnormal secretions. - Respiratory Exam Respiratory Exam: Clear to Ausculation Bilateral. absent: Wheezes, Stridor - Cardiovascular Exam Cardiovascular Exam: REGULAR RHYTHM, +S1, +S2 - GI/Abdominal Exam GI & Abdominal Exam: Soft, Normal Bowel Sounds. absent: Distended, Firm, Guarding, Rigid Additional comments: PEG tube c/d/i - Extremities Exam Additional comments: SCD's in place. Pressure ulcer protective boots on - Neurological Exam Additional comments: Patient non-verbal, unable to arouse due to anoxic brain injury (05/2015) - Skin Skin Exam: Dry, Normal Color, Warm Assessment and Plan - Assessment and Plan (Free Text) Plan: Anoxic encephalopathy Assessment & Plan: s/p cardiac arrest in 05/2015 no acute changes Pt has non spontaneous movements. continue current management. Continue tube feeds- at goal of 60, feedings held at night due to fluid overload Status: Chronic Urinary tract infection Assessment & Plan: Resolved Patient afebrile WBC count stable as of 06/22/17 Tylenol 650mg po q6 PEG PRN UA and Urine Cx ordered on 05/28/17 showed gram negative rods --> Proteus Mirabilis was started Primaxin 500mg IV Q6 on 05/30/17-- DC Status: Acute Urinary retention Assessment & Plan: Unchanged 06/25/17: Patient voids with movement. Continue bladder massages to aid in voiding. 06/23/17: Patient will need to have daily bladder massage to allow for complete voiding 06/17/17: Nursing communication placed in: straight catherization with bladder scan> 100ml 06/08: urinary retention yesterday, was given 40mg lasix iv and patient was able to urinate through condom baker Take note condom cath not always securely in place so Is and Os are approximate as patient does wet bed Ordered- new condom catheter on 05/22/17 Flomax 0.4mg PEG daily Proscar 5mg PEG daily continue Bethanecol 50mg PEG TID- started after persistent retention and found to be effective. monitor I's and O's Check bladder scan for residual urine three times weekly Status: Acute Respiratory failure Assessment & Plan: Trach in place, continue daily monitoring for secretions. No change in management at this time. Continue with aggressive suctioning multiple times a day per respiratory therapist. Monitor for signs of respiratory distress Thick secretions Duoneb 3ml INH Q6 and Mucomyst 4ml INH Q6H Robitussin 100mg PEG Q12H Scopolamine 1 patch TD Q3D JOO Repeat CXR on 05/28/17: linear increased consolidative changes in the right mid- lung zone and left lung base which may represent atelectasis and/or infiltrate. Questionable trace left pleural effusion. moderate venous congestion. cardiomegaly. degenerative changes in the spine and shoulders Status: Chronic Sacral ulcer Assessment & Plan: Healed Cont with offloading/cushioning/turning Continue frequent turning, protective ointment and skin checks. Status: Resolved History of coronary artery disease Assessment & Plan: s/p cardiac stents on 06/13/15 Cont ASA 81mg via PEG daily Cont Coreg 3.125mg PEG BID Cont Plavix 75mg PO daily Status: Acute Seizures Assessment & Plan: Continue Keppra 500mg PEG BID for seizure prophylaxis Monitor for activity Status: Acute Lower extremity edema Assessment & Plan: Improved Continue to monitor Status: Acute Prophylactic measure Assessment & Plan: Pepcid 20 mg PEG BID Lovenox 40mg SC daily SCDs and offloading boots continue to turn and reposition q2hrs Feeds increased to 50cc/hr. Per car wash supervisor (05/02/17): tube feed goal: Isosource 1.5 @ 50cc/h Will continue tube feeds @ 50 with goal of 60cc/h Continue to monitor medication administrations and clinical presentation weekly labs. vasoline ointment applied to feet prn to prevent hyperkeratosis Stop feeding from 10pm-6am, placed into nursing communication (06/16/17) Al Robin Dr. Carola PGY 1 <Donnell Ying M - Last Filed: 06/26/17 10:07> Objective - Vital Signs/Intake and Output Vital Signs (last 24 hours): Temp Pulse Resp BP Pulse Ox 98.1 F 75 20 135/85 100 06/26/17 08:35 06/26/17 08:35 06/26/17 08:35 06/26/17 08:35 06/26/17 08:35 Intake and Output: 06/26/17 06/26/17 06:59 18:59 Intake Total 1000 Output Total 800 Balance 200 - Medications Medications: Current Medications Acetaminophen (Tylenol 650mg/20.3ml Solution Ud) 650 mg PEG Q6 PRN PRN Reason: Fever >100.4 F Last Admin: 04/07/17 02:45 Dose: 650 mg Acetylcysteine (Acetylcysteine 20%) 4 ml INH RQ8 [facility] Last Admin: 06/26/17 07:51 Dose: 4 ml Albuterol/Ipratropium (Duoneb 3 Mg/0.5 Mg (3 Ml) Ud) 3 ml INH RQ8 [facility] Last Admin: 06/26/17 07:51 Dose: 3 ml Aspirin (Aspirin Chewable) 81 mg PEG DAILY [facility] Last Admin: 06/26/17 09:04 Dose: 81 mg Bethanechol Chloride (Urecholine) 50 mg PEG TID [facility] Last Admin: 06/26/17 09:05 Dose: 50 mg Carvedilol (Coreg) 3.125 mg PEG BID [facility] Last Admin: 06/26/17 09:04 Dose: 3.125 mg Clopidogrel Bisulfate (Plavix) 75 mg PEG DAILY [facility] Last Admin: 06/26/17 09:05 Dose: 75 mg Emollient Ointment (Vaseline Oint) 5 gm TOP DAILY PRN PRN Reason: Dry skin Enoxaparin Sodium (Lovenox) 40 mg SC DAILY [facility] Last Admin: 06/26/17 09:06 Dose: 40 mg Famotidine (Pepcid) 20 mg PEG BID [facility] Last Admin: 06/26/17 09:04 Dose: 20 mg Finasteride (Proscar) 5 mg PEG DAILY [facility] Last Admin: 06/26/17 09:05 Dose: 5 mg Levetiracetam (Keppra) 500 mg PEG BID [facility] Last Admin: 06/26/17 09:06 Dose: 500 mg Saccharomyces Boulardii (Florastor) 250 mg PEG DAILY [facility] Last Admin: 06/26/17 09:05 Dose: 250 mg Scopolamine (Transderm-Scop) 1 patch TD Q3D [facility] Last Admin: 06/24/17 21:40 Dose: 1 patch Tamsulosin HCl (Flomax) 0.4 mg PEG DAILY [facility] Last Admin: 06/26/17 09:05 Dose: 0.4 mg - Labs Labs: 06/22/17 07:45 06/22/17 07:45 PT 10.6 SECONDS (9.7-12.2) 11/24/15 14:10 INR 1.0 11/24/15 14:10 APTT 25 SECONDS (21-34) 11/24/15 14:10 Attending/Attestation - Attestation I have personally seen and examined this patient.: Yes I have fully participated in the care of the patient.: Yes I have reviewed all pertinent clinical information, including history, physical exam and plan: Yes Notes (Text): 06/26/17 10:07 Patient was seen and examined at bedside with the resident This note change in clinical condition Continue current management Discussed the plan of care with the resident agree with the above history and physical and assessment/plan.
[2017-06-26] MEDS: Albuterol-Ipratrop 3 mg / 0.5 (3 ml) UD INH SCH ×3 (00:54→16:04)
[2017-06-26] MEDS: Acetylcysteine 20% Inhal Soln (4ml) INH SCH ×3 (00:54→16:04)
[2017-06-26] MEDS: Saccharomyces Boulardi 250 mg Cap PEG SCH (09:05)
[2017-06-26] MEDS: Enoxaparin 40 mg Syringe SC SCH (09:06)
[2017-06-26] MEDS: levETIRAcetam 100 mg/ml (5ml) Oral Syringe PEG SCH ×2 (09:06→17:49)
--- NOTE | 2017-06-26 09:54 | CP.PCM.PN ---
<Al Srivastava - Last Filed: 06/26/17 18:07> Subjective - Date & Time of Evaluation Date of Evaluation: 06/26/17 Time of Evaluation: 09:52 - Subjective Subjective: PGY1 Medicine Note for Dr. Ying Patient seen and examined this morning at bedside. Patient is non-verbal due to anoxic brain injury (05/2015). Continue bladder massage while seeing this patient as it aides in him voiding. Objective - Vital Signs/Intake and Output Vital Signs (last 24 hours): Temp Pulse Resp BP Pulse Ox 98.1 F 75 20 135/85 100 06/26/17 08:35 06/26/17 08:35 06/26/17 08:35 06/26/17 08:35 06/26/17 08:35 Intake and Output: 06/26/17 06/26/17 06:59 18:59 Intake Total 1000 Output Total 800 Balance 200 - Medications Medications: Current Medications Acetaminophen (Tylenol 650mg/20.3ml Solution Ud) 650 mg PEG Q6 PRN PRN Reason: Fever >100.4 F Last Admin: 04/07/17 02:45 Dose: 650 mg Acetylcysteine (Acetylcysteine 20%) 4 ml INH RQ8 [facility] Last Admin: 06/26/17 07:51 Dose: 4 ml Albuterol/Ipratropium (Duoneb 3 Mg/0.5 Mg (3 Ml) Ud) 3 ml INH RQ8 [facility] Last Admin: 06/26/17 07:51 Dose: 3 ml Aspirin (Aspirin Chewable) 81 mg PEG DAILY [facility] Last Admin: 06/26/17 09:04 Dose: 81 mg Bethanechol Chloride (Urecholine) 50 mg PEG TID [facility] Last Admin: 06/26/17 09:05 Dose: 50 mg Carvedilol (Coreg) 3.125 mg PEG BID [facility] Last Admin: 06/26/17 09:04 Dose: 3.125 mg Clopidogrel Bisulfate (Plavix) 75 mg PEG DAILY [facility] Last Admin: 06/26/17 09:05 Dose: 75 mg Emollient Ointment (Vaseline Oint) 5 gm TOP DAILY PRN PRN Reason: Dry skin Enoxaparin Sodium (Lovenox) 40 mg SC DAILY [facility] Last Admin: 06/26/17 09:06 Dose: 40 mg Famotidine (Pepcid) 20 mg PEG BID [facility] Last Admin: 06/26/17 09:04 Dose: 20 mg Finasteride (Proscar) 5 mg PEG DAILY [facility] Last Admin: 06/26/17 09:05 Dose: 5 mg Levetiracetam (Keppra) 500 mg PEG BID [facility] Last Admin: 06/26/17 09:06 Dose: 500 mg Saccharomyces Boulardii (Florastor) 250 mg PEG DAILY [facility] Last Admin: 06/26/17 09:05 Dose: 250 mg Scopolamine (Transderm-Scop) 1 patch TD Q3D [facility] Last Admin: 06/24/17 21:40 Dose: 1 patch Tamsulosin HCl (Flomax) 0.4 mg PEG DAILY [facility] Last Admin: 06/26/17 09:05 Dose: 0.4 mg - Labs Labs: 06/22/17 07:45 06/22/17 07:45 PT 10.6 SECONDS (9.7-12.2) 11/24/15 14:10 INR 1.0 11/24/15 14:10 APTT 25 SECONDS (21-34) 11/24/15 14:10 - Constitutional Appears: Non-toxic, No Acute Distress - ENT Exam ENT Exam: Mucous Membranes Moist Additional comments: Trach in place, no abnormal secretions - Respiratory Exam Respiratory Exam: Clear to Ausculation Bilateral, NORMAL BREATHING PATTERN. absent: Accessory Muscle Use, Wheezes, Respiratory Distress, Stridor Additional comments: Trach in place - Cardiovascular Exam Cardiovascular Exam: REGULAR RHYTHM, +S1, +S2 - GI/Abdominal Exam GI & Abdominal Exam: Soft, Tenderness, Normal Bowel Sounds. absent: Distended, Guarding, Rigid Additional comments: PEG tubd c/d/i - Extremities Exam Additional comments: SCDs on and in place. Pressure ulcer protective boots on b/l - Neurological Exam Additional comments: Patient non-verbal. Eyes open spontaneously. Patient is bed bound due to anoxic injury in 05/2015. - Skin Skin Exam: Dry, Normal Color, Warm Assessment and Plan - Assessment and Plan (Free Text) Plan: Anoxic encephalopathy Assessment & Plan: s/p cardiac arrest in 05/2015 no acute changes Pt has non spontaneous movements. continue current management. Continue tube feeds- at goal of 60, feedings held at night due to fluid overload Urinary tract infection Assessment & Plan: Resolved Patient afebrile WBC count stable as of 06/22/17 Tylenol 650mg po q6 PEG PRN UA and Urine Cx ordered on 05/28/17 showed gram negative rods --> Proteus Mirabilis was started Primaxin 500mg IV Q6 on 05/30/17-- DC Urinary retention Assessment & Plan: Unchanged 06/25/17: Patient voids with movement. Continue bladder massages to aid in voiding. 06/23/17: Patient will need to have daily bladder massage to allow for complete voiding 06/17/17: Nursing communication placed in: straight catherization with bladder scan> 100ml 06/08: urinary retention yesterday, was given 40mg lasix iv and patient was able to urinate through condom baker Take note condom cath not always securely in place so Is and Os are approximate as patient does wet bed Ordered- new condom catheter on 05/22/17 Flomax 0.4mg PEG daily Proscar 5mg PEG daily continue Bethanecol 50mg PEG TID- started after persistent retention and found to be effective. monitor I's and O's Check bladder scan for residual urine three times weekly Respiratory failure Assessment & Plan: Trach in place, continue daily monitoring for secretions. No change in management at this time. Continue with aggressive suctioning multiple times a day per respiratory therapist. Monitor for signs of respiratory distress Thick secretions Duoneb 3ml INH Q6 and Mucomyst 4ml INH Q6H Robitussin 100mg PEG Q12H Scopolamine 1 patch TD Q3D JOO Repeat CXR on 05/28/17: linear increased consolidative changes in the right mid- lung zone and left lung base which may represent atelectasis and/or infiltrate. Questionable trace left pleural effusion. moderate venous congestion. cardiomegaly. degenerative changes in the spine and shoulders Sacral ulcer Assessment & Plan: Healed Cont with offloading/cushioning/turning Continue frequent turning, protective ointment and skin checks. History of coronary artery disease Assessment & Plan: s/p cardiac stents on 06/13/15 Cont ASA 81mg via PEG daily Cont Coreg 3.125mg PEG BID Cont Plavix 75mg PO daily Seizures Assessment & Plan: Continue Keppra 500mg PEG BID for seizure prophylaxis Monitor for activity Lower extremity edema Assessment & Plan: Improved Continue to monitor Prophylactic measure Assessment & Plan: Pepcid 20 mg PEG BID Lovenox 40mg SC daily SCDs and offloading boots continue to turn and reposition q2hrs Feeds increased to 50cc/hr. Per water gas operator (05/02/17): tube feed goal: Isosource 1.5 @ 50cc/h Will continue tube feeds @ 50 with goal of 60cc/h Continue to monitor medication administrations and clinical presentation weekly labs. vasoline ointment applied to feet prn to prevent hyperkeratosis Stop feeding from 10pm-6am, placed into nursing communication (06/16/17) Al Robin Dr. Carola PGY 1 <Donnell Ying M - Last Filed: 06/27/17 12:30> Objective - Vital Signs/Intake and Output Vital Signs (last 24 hours): Temp Pulse Resp BP Pulse Ox 98 F 72 21 124/79 100 06/27/17 08:02 06/27/17 08:02 06/27/17 08:02 06/27/17 08:02 06/27/17 08:02 Intake and Output: 06/27/17 06/27/17 06:59 18:59 Intake Total 650 350 Output Total 100 400 Balance 550 -50 - Medications Medications: Current Medications Acetaminophen (Tylenol 650mg/20.3ml Solution Ud) 650 mg PEG Q6 PRN PRN Reason: Fever >100.4 F Last Admin: 04/07/17 02:45 Dose: 650 mg Acetylcysteine (Acetylcysteine 20%) 4 ml INH RQ8 [facility] Last Admin: 06/27/17 07:20 Dose: Not Given Aspirin (Aspirin Chewable) 81 mg PEG DAILY [facility] Last Admin: 06/27/17 10:59 Dose: 81 mg Bethanechol Chloride (Urecholine) 50 mg PEG TID [facility] Last Admin: 06/27/17 10:59 Dose: 50 mg Carvedilol (Coreg) 3.125 mg PEG BID [facility] Last Admin: 06/27/17 11:00 Dose: 3.125 mg Clopidogrel Bisulfate (Plavix) 75 mg PEG DAILY [facility] Last Admin: 06/27/17 10:59 Dose: 75 mg Emollient Ointment (Vaseline Oint) 5 gm TOP DAILY PRN PRN Reason: Dry skin Enoxaparin Sodium (Lovenox) 40 mg SC DAILY [facility] Last Admin: 06/27/17 11:00 Dose: 40 mg Famotidine (Pepcid) 20 mg PEG BID [facility] Last Admin: 06/27/17 10:59 Dose: 20 mg Finasteride (Proscar) 5 mg PEG DAILY [facility] Last Admin: 06/27/17 11:00 Dose: 5 mg Levetiracetam (Keppra) 500 mg PEG BID [facility] Last Admin: 06/27/17 11:00 Dose: 500 mg Saccharomyces Boulardii (Florastor) 250 mg PEG DAILY [facility] Last Admin: 06/27/17 11:00 Dose: 250 mg Scopolamine (Transderm-Scop) 1 patch TD Q3D [facility] Last Admin: 06/24/17 21:40 Dose: 1 patch Tamsulosin HCl (Flomax) 0.4 mg PEG DAILY [facility] Last Admin: 06/27/17 10:59 Dose: 0.4 mg - Labs Labs: 06/22/17 07:45 06/22/17 07:45 PT 10.6 SECONDS (9.7-12.2) 11/24/15 14:10 INR 1.0 11/24/15 14:10 APTT 25 SECONDS (21-34) 11/24/15 14:10 Attending/Attestation - Attestation I have personally seen and examined this patient.: Yes I have fully participated in the care of the patient.: Yes I have reviewed all pertinent clinical information, including history, physical exam and plan: Yes Notes (Text): 06/27/17 12:18 Patient was seen and examined at bedside Continue current medical management. I agree with the assessment and plan documented by the resident.
[2017-06-27] MEDS: Albuterol-Ipratrop 3 mg / 0.5 (3 ml) UD INH SCH ×3 (00:07→15:49)
[2017-06-27] MEDS: Acetylcysteine 20% Inhal Soln (4ml) INH SCH ×3 (00:07→15:49)
--- NOTE | 2017-06-27 02:28 | CP.PCM.PN ---
<Josue Denson - Last Filed: 06/27/17 02:25> Subjective - Date & Time of Evaluation Date of Evaluation: 06/27/17 Time of Evaluation: 02:25 - Subjective Subjective: PGY-[address] Ying HPI: Patient seen and examined at bedside. Patient is nonverbal due to anoxic brain injury in 2016. Objective - Vital Signs/Intake and Output Vital Signs (last 24 hours): Temp Pulse Resp BP Pulse Ox 98.3 F 67 20 119/80 99 06/26/17 23:38 06/26/17 23:38 06/26/17 23:38 06/26/17 23:38 06/26/17 23:38 Intake and Output: 06/26/17 06/27/17 18:59 06:59 Intake Total 600 650 Output Total 900 100 Balance -300 550 - Medications Medications: Current Medications Acetaminophen (Tylenol 650mg/20.3ml Solution Ud) 650 mg PEG Q6 PRN PRN Reason: Fever >100.4 F Last Admin: 04/07/17 02:45 Dose: 650 mg Acetylcysteine (Acetylcysteine 20%) 4 ml INH RQ8 [facility] Last Admin: 06/27/17 00:07 Dose: 4 ml Aspirin (Aspirin Chewable) 81 mg PEG DAILY [facility] Last Admin: 06/26/17 09:04 Dose: 81 mg Bethanechol Chloride (Urecholine) 50 mg PEG TID [facility] Last Admin: 06/26/17 17:50 Dose: 50 mg Carvedilol (Coreg) 3.125 mg PEG BID [facility] Last Admin: 06/26/17 17:49 Dose: 3.125 mg Clopidogrel Bisulfate (Plavix) 75 mg PEG DAILY [facility] Last Admin: 06/26/17 09:05 Dose: 75 mg Emollient Ointment (Vaseline Oint) 5 gm TOP DAILY PRN PRN Reason: Dry skin Enoxaparin Sodium (Lovenox) 40 mg SC DAILY [facility] Last Admin: 06/26/17 09:06 Dose: 40 mg Famotidine (Pepcid) 20 mg PEG BID [facility] Last Admin: 06/26/17 17:50 Dose: 20 mg Finasteride (Proscar) 5 mg PEG DAILY [facility] Last Admin: 06/26/17 09:05 Dose: 5 mg Levetiracetam (Keppra) 500 mg PEG BID [facility] Last Admin: 06/26/17 17:49 Dose: 500 mg Saccharomyces Boulardii (Florastor) 250 mg PEG DAILY [facility] Last Admin: 06/26/17 09:05 Dose: 250 mg Scopolamine (Transderm-Scop) 1 patch TD Q3D [facility] Last Admin: 06/24/17 21:40 Dose: 1 patch Tamsulosin HCl (Flomax) 0.4 mg PEG DAILY [facility] Last Admin: 06/26/17 09:05 Dose: 0.4 mg - Labs Labs: 06/22/17 07:45 06/22/17 07:45 PT 10.6 SECONDS (9.7-12.2) 11/24/15 14:10 INR 1.0 11/24/15 14:10 APTT 25 SECONDS (21-34) 11/24/15 14:10 - Constitutional Appears: Chronically Ill - Head Exam Head Exam: ATRAUMATIC, NORMOCEPHALIC - Eye Exam Eye Exam: absent: Conjunctival injection, EOMI, Periorbital swelling, Periorbital tenderness - ENT Exam ENT Exam: Mucous Membranes Moist Additional comments: spontaneously moves head from side to side - Respiratory Exam Respiratory Exam: Rhonchi Additional comments: trach, on vent - Cardiovascular Exam Cardiovascular Exam: REGULAR RHYTHM, RRR. absent: Tachycardia, Clicks, Diastolic murmur, Gallop, JVD, Rubs, Murmur - GI/Abdominal Exam GI & Abdominal Exam: Soft. absent: Distended, Firm, Guarding, Rigid, Tenderness , Rebound - Neurological Exam Neurological Exam: Altered - Skin Skin Exam: Intact, Normal Color Assessment and Plan - Assessment and Plan (Free Text) Assessment: Anoxic encephalopathy Assessment & Plan: s/p cardiac arrest in 05/2015 no acute changes Pt has non spontaneous movements. continue current management. Continue tube feeds- at goal of 60, feedings held at night due to fluid overload Urinary tract infection Assessment & Plan: Resolved Patient afebrile WBC count stable as of 06/22/17 Tylenol 650mg po q6 PEG PRN UA and Urine Cx ordered on 05/28/17 showed gram negative rods --> Proteus Mirabilis was started Primaxin 500mg IV Q6 on 05/30/17-- DC Urinary retention Assessment & Plan: Unchanged 06/27/17: Continue bladder massages to aid in voiding. 06/25/17: Patient voids with movement. Continue bladder massages to aid in voiding. 06/23/17: Patient will need to have daily bladder massage to allow for complete voiding 06/17/17: Nursing communication placed in: straight catherization with bladder scan> 100ml 06/08: urinary retention yesterday, was given 40mg lasix iv and patient was able to urinate through condom baker Take note condom cath not always securely in place so Is and Os are approximate as patient does wet bed Ordered- new condom catheter on 05/22/17 Flomax 0.4mg PEG daily Proscar 5mg PEG daily continue Bethanecol 50mg PEG TID- started after persistent retention and found to be effective. monitor I's and O's Check bladder scan for residual urine three times weekly Respiratory failure Assessment & Plan: Trach in place, continue daily monitoring for secretions. No change in management at this time. Continue with aggressive suctioning multiple times a day per respiratory therapist. Monitor for signs of respiratory distress Thick secretions Duoneb 3ml INH Q6 and Mucomyst 4ml INH Q6H Robitussin 100mg PEG Q12H Scopolamine 1 patch TD Q3D JOO Repeat CXR on 05/28/17: linear increased consolidative changes in the right mid- lung zone and left lung base which may represent atelectasis and/or infiltrate. Questionable trace left pleural effusion. moderate venous congestion. cardiomegaly. degenerative changes in the spine and shoulders Sacral ulcer Assessment & Plan: Healed Cont with offloading/cushioning/turning Continue frequent turning, protective ointment and skin checks. History of coronary artery disease Assessment & Plan: s/p cardiac stents on 06/13/15 Cont ASA 81mg via PEG daily Cont Coreg 3.125mg PEG BID Cont Plavix 75mg PO daily Seizures Assessment & Plan: Continue Keppra 500mg PEG BID for seizure prophylaxis Monitor for activity Lower extremity edema Assessment & Plan: Improved Continue to monitor Prophylactic measure Assessment & Plan: Pepcid 20 mg PEG BID Lovenox 40mg SC daily SCDs and offloading boots continue to turn and reposition q2hrs Feeds increased to 50cc/hr. Per pomology teacher (05/02/17): tube feed goal: Isosource 1.5 @ 50cc/h Will continue tube feeds @ 50 with goal of 60cc/h Continue to monitor medication administrations and clinical presentation weekly labs. vasoline ointment applied to feet prn to prevent hyperkeratosis Stop feeding from 10pm-6am, placed into nursing communication (06/16/17) <StepanDonnell M - Last Filed: 06/27/17 18:33> Objective - Vital Signs/Intake and Output Vital Signs (last 24 hours): Temp Pulse Resp BP Pulse Ox 98.5 F 80 20 127/77 100 06/27/17 16:04 06/27/17 16:04 06/27/17 16:04 06/27/17 16:04 06/27/17 16:04 Intake and Output: 06/27/17 06/27/17 06:59 18:59 Intake Total 650 950 Output Total 100 1400 Balance 550 -450 - Medications Medications: Current Medications Acetaminophen (Tylenol 650mg/20.3ml Solution Ud) 650 mg PEG Q6 PRN PRN Reason: Fever >100.4 F Last Admin: 04/07/17 02:45 Dose: 650 mg Acetylcysteine (Acetylcysteine 20%) 4 ml INH RQ8 [facility] Last Admin: 06/27/17 15:49 Dose: 4 ml Albuterol/Ipratropium (Duoneb 3 Mg/0.5 Mg (3 Ml) Ud) 3 ml INH RQ8 [facility] Aspirin (Aspirin Chewable) 81 mg PEG DAILY [facility] Last Admin: 06/27/17 10:59 Dose: 81 mg Bethanechol Chloride (Urecholine) 50 mg PEG TID [facility] Last Admin: 06/27/17 18:05 Dose: 50 mg Carvedilol (Coreg) 3.125 mg PEG BID [facility] Last Admin: 06/27/17 18:05 Dose: 3.125 mg Clopidogrel Bisulfate (Plavix) 75 mg PEG DAILY [facility] Last Admin: 06/27/17 10:59 Dose: 75 mg Emollient Ointment (Vaseline Oint) 5 gm TOP DAILY PRN PRN Reason: Dry skin Enoxaparin Sodium (Lovenox) 40 mg SC DAILY [facility] Last Admin: 06/27/17 11:00 Dose: 40 mg Famotidine (Pepcid) 20 mg PEG BID [facility] Last Admin: 06/27/17 18:05 Dose: 20 mg Finasteride (Proscar) 5 mg PEG DAILY [facility] Last Admin: 06/27/17 11:00 Dose: 5 mg Levetiracetam (Keppra) 500 mg PEG BID [facility] Last Admin: 06/27/17 18:05 Dose: 500 mg Saccharomyces Boulardii (Florastor) 250 mg PEG DAILY [facility] Last Admin: 06/27/17 11:00 Dose: 250 mg Scopolamine (Transderm-Scop) 1 patch TD Q3D [facility] Last Admin: 06/24/17 21:40 Dose: 1 patch Tamsulosin HCl (Flomax) 0.4 mg PEG DAILY [facility] Last Admin: 06/27/17 10:59 Dose: 0.4 mg - Labs Labs: 06/22/17 07:45 06/22/17 07:45 PT 10.6 SECONDS (9.7-12.2) 11/24/15 14:10 INR 1.0 11/24/15 14:10 APTT 25 SECONDS (21-34) 11/24/15 14:10 Attending/Attestation - Attestation I have personally seen and examined this patient.: Yes I have fully participated in the care of the patient.: Yes I have reviewed all pertinent clinical information, including history, physical exam and plan: Yes Notes (Text): 06/27/17 18:33 Patient is seen and examined at bedside with the resident No change in clinical condition and continue current management I agree with the assessment and plan documented above
[2017-06-27] MEDS: Saccharomyces Boulardi 250 mg Cap PEG SCH (11:00)
[2017-06-27] MEDS: Enoxaparin 40 mg Syringe SC SCH (11:00)
[2017-06-27] MEDS: levETIRAcetam 100 mg/ml (5ml) Oral Syringe PEG SCH ×2 (11:00→18:05)
[2017-06-28] MEDS: Albuterol-Ipratrop 3 mg / 0.5 (3 ml) UD INH SCH ×3 (01:33→15:38)
[2017-06-28] MEDS: Acetylcysteine 20% Inhal Soln (4ml) INH SCH ×3 (01:33→15:37)
--- NOTE | 2017-06-28 07:39 | CP.PCM.PN ---
<Josue Denson - Last Filed: 06/28/17 07:43> Subjective - Date & Time of Evaluation Date of Evaluation: 06/28/17 Time of Evaluation: 07:39 - Subjective Subjective: PGY-1 Note for Stepan HPI: Pt seen and examined at bedside. Nonresponsive due to anoxic brain injury. ROS unattainable. Spontaneously moves his head Objective - Vital Signs/Intake and Output Vital Signs (last 24 hours): Temp Pulse Resp BP Pulse Ox 98 F 80 20 114/68 100 06/28/17 00:30 06/28/17 00:30 06/28/17 00:30 06/28/17 00:30 06/28/17 00:30 Intake and Output: 06/28/17 06/28/17 06:59 18:59 Intake Total 600 Output Total 500 Balance 100 - Medications Medications: Current Medications Acetaminophen (Tylenol 650mg/20.3ml Solution Ud) 650 mg PEG Q6 PRN PRN Reason: Fever >100.4 F Last Admin: 04/07/17 02:45 Dose: 650 mg Acetylcysteine (Acetylcysteine 20%) 4 ml INH RQ8 [facility] Last Admin: 06/28/17 07:17 Dose: 4 ml Albuterol/Ipratropium (Duoneb 3 Mg/0.5 Mg (3 Ml) Ud) 3 ml INH RQ8 [facility] Last Admin: 06/28/17 07:17 Dose: 3 ml Aspirin (Aspirin Chewable) 81 mg PEG DAILY [facility] Last Admin: 06/27/17 10:59 Dose: 81 mg Bethanechol Chloride (Urecholine) 50 mg PEG TID [facility] Last Admin: 06/27/17 18:05 Dose: 50 mg Carvedilol (Coreg) 3.125 mg PEG BID [facility] Last Admin: 06/27/17 18:05 Dose: 3.125 mg Clopidogrel Bisulfate (Plavix) 75 mg PEG DAILY [facility] Last Admin: 06/27/17 10:59 Dose: 75 mg Emollient Ointment (Vaseline Oint) 5 gm TOP DAILY PRN PRN Reason: Dry skin Enoxaparin Sodium (Lovenox) 40 mg SC DAILY [facility] Last Admin: 06/27/17 11:00 Dose: 40 mg Famotidine (Pepcid) 20 mg PEG BID [facility] Last Admin: 06/27/17 18:05 Dose: 20 mg Finasteride (Proscar) 5 mg PEG DAILY [facility] Last Admin: 06/27/17 11:00 Dose: 5 mg Levetiracetam (Keppra) 500 mg PEG BID [facility] Last Admin: 06/27/17 18:05 Dose: 500 mg Saccharomyces Boulardii (Florastor) 250 mg PEG DAILY [facility] Last Admin: 06/27/17 11:00 Dose: 250 mg Scopolamine (Transderm-Scop) 1 patch TD Q3D [facility] Last Admin: 06/27/17 21:07 Dose: 1 patch Tamsulosin HCl (Flomax) 0.4 mg PEG DAILY [facility] Last Admin: 06/27/17 10:59 Dose: 0.4 mg - Labs Labs: 06/22/17 07:45 06/22/17 07:45 PT 10.6 SECONDS (9.7-12.2) 11/24/15 14:10 INR 1.0 11/24/15 14:10 APTT 25 SECONDS (21-34) 11/24/15 14:10 - Constitutional Appears: Chronically Ill - Head Exam Head Exam: ATRAUMATIC, NORMAL INSPECTION, NORMOCEPHALIC - ENT Exam ENT Exam: Mucous Membranes Moist - Respiratory Exam Respiratory Exam: Clear to Ausculation Bilateral - Cardiovascular Exam Cardiovascular Exam: REGULAR RHYTHM - GI/Abdominal Exam GI & Abdominal Exam: Soft. absent: Distended, Tenderness - Neurological Exam Neurological Exam: Awake - Skin Skin Exam: Dry, Intact, Normal Color, Warm Assessment and Plan - Assessment and Plan (Free Text) Assessment: Anoxic encephalopathy Assessment & Plan: s/p cardiac arrest in 05/2015 no acute changes Pt has non spontaneous movements. continue current management. Continue tube feeds- at goal of 60, feedings held at night due to fluid overload Urinary tract infection Assessment & Plan: Resolved Patient afebrile WBC count stable as of 06/22/17 Tylenol 650mg po q6 PEG PRN UA and Urine Cx ordered on 05/28/17 showed gram negative rods --> Proteus Mirabilis was started Primaxin 500mg IV Q6 on 05/30/17-- DC Urinary retention Assessment & Plan: Unchanged 06/27/17: Continue bladder massages to aid in voiding. 06/25/17: Patient voids with movement. Continue bladder massages to aid in voiding. 06/23/17: Patient will need to have daily bladder massage to allow for complete voiding 06/17/17: Nursing communication placed in: straight catherization with bladder scan> 100ml 06/08: urinary retention yesterday, was given 40mg lasix iv and patient was able to urinate through condom baker Take note condom cath not always securely in place so Is and Os are approximate as patient does wet bed Ordered- new condom catheter on 05/22/17 Flomax 0.4mg PEG daily Proscar 5mg PEG daily continue Bethanecol 50mg PEG TID- started after persistent retention and found to be effective. monitor I's and O's Check bladder scan for residual urine three times weekly Respiratory failure Assessment & Plan: Trach in place, continue daily monitoring for secretions. No change in management at this time. Continue with aggressive suctioning multiple times a day per respiratory therapist. Monitor for signs of respiratory distress Thick secretions Duoneb 3ml INH Q6 and Mucomyst 4ml INH Q6H Robitussin 100mg PEG Q12H Scopolamine 1 patch TD Q3D [facility] Repeat CXR on 05/28/17: linear increased consolidative changes in the right mid- lung zone and left lung base which may represent atelectasis and/or infiltrate. Questionable trace left pleural effusion. moderate venous congestion. cardiomegaly. degenerative changes in the spine and shoulders Sacral ulcer Assessment & Plan: Healed Cont with offloading/cushioning/turning Continue frequent turning, protective ointment and skin checks. History of coronary artery disease Assessment & Plan: s/p cardiac stents on 06/13/15 Cont ASA 81mg via PEG daily Cont Coreg 3.125mg PEG BID Cont Plavix 75mg PO daily Seizures Assessment & Plan: Continue Keppra 500mg PEG BID for seizure prophylaxis Monitor for activity Lower extremity edema Assessment & Plan: Improved Continue to monitor Prophylactic measure Assessment & Plan: Pepcid 20 mg PEG BID Lovenox 40mg SC daily SCDs and offloading boots continue to turn and reposition q2hrs Feeds increased to 50cc/hr. Per assembly line brazer (05/02/17): tube feed goal: Isosource 1.5 @ 50cc/h Will continue tube feeds @ 50 with goal of 60cc/h Continue to monitor medication administrations and clinical presentation weekly labs. vasoline ointment applied to feet prn to prevent hyperkeratosis Stop feeding from 10pm-6am, placed into nursing communication (06/16/17) <Donnell Ying M - Last Filed: 06/28/17 14:54> Objective - Vital Signs/Intake and Output Vital Signs (last 24 hours): Temp Pulse Resp BP Pulse Ox 98.1 F 66 20 125/75 98 06/28/17 08:37 06/28/17 08:37 06/28/17 08:37 06/28/17 08:37 06/28/17 08:37 Intake and Output: 06/28/17 06/28/17 06:59 18:59 Intake Total 600 900 Output Total 500 Balance 100 900 - Medications Medications: Current Medications Acetylcysteine (Acetylcysteine 20%) 4 ml INH RQ8 [facility] Last Admin: 06/28/17 07:17 Dose: 4 ml Albuterol/Ipratropium (Duoneb 3 Mg/0.5 Mg (3 Ml) Ud) 3 ml INH RQ8 [facility] Last Admin: 06/28/17 07:17 Dose: 3 ml Aspirin (Aspirin Chewable) 81 mg PEG DAILY [facility] Last Admin: 06/28/17 11:00 Dose: 81 mg Bethanechol Chloride (Urecholine) 50 mg PEG TID [facility] Last Admin: 06/28/17 13:08 Dose: 50 mg Carvedilol (Coreg) 3.125 mg PEG BID [facility] Last Admin: 06/28/17 11:01 Dose: 3.125 mg Clopidogrel Bisulfate (Plavix) 75 mg PEG DAILY [facility] Last Admin: 06/28/17 11:00 Dose: 75 mg Emollient Ointment (Vaseline Oint) 5 gm TOP DAILY PRN PRN Reason: Dry skin Enoxaparin Sodium (Lovenox) 40 mg SC DAILY [facility] Last Admin: 06/28/17 11:00 Dose: 40 mg Famotidine (Pepcid) 20 mg PEG BID [facility] Last Admin: 06/28/17 11:00 Dose: 20 mg Finasteride (Proscar) 5 mg PEG DAILY [facility] Last Admin: 06/28/17 11:00 Dose: 5 mg Levetiracetam (Keppra) 500 mg PEG BID [facility] Last Admin: 06/28/17 11:00 Dose: 500 mg Saccharomyces Boulardii (Florastor) 250 mg PEG DAILY [facility] Last Admin: 06/28/17 11:04 Dose: 250 mg Scopolamine (Transderm-Scop) 1 patch TD Q3D [facility] Last Admin: 06/27/17 21:07 Dose: 1 patch Tamsulosin HCl (Flomax) 0.4 mg PEG DAILY [facility] Last Admin: 06/28/17 11:01 Dose: 0.4 mg - Labs Labs: 06/22/17 07:45 06/22/17 07:45 PT 10.6 SECONDS (9.7-12.2) 11/24/15 14:10 INR 1.0 11/24/15 14:10 APTT 25 SECONDS (21-34) 11/24/15 14:10 Attending/Attestation - Attestation I have personally seen and examined this patient.: Yes I have fully participated in the care of the patient.: Yes I have reviewed all pertinent clinical information, including history, physical exam and plan: Yes Notes (Text): 06/28/17 14:54 Patient was seen and examined at bedside with the resident No change in clinical condition and sent continue current medical management Discussed plan of care with the resident and agree with the above assessment plan.
[2017-06-28] MEDS: Enoxaparin 40 mg Syringe SC SCH (11:00)
[2017-06-28] MEDS: levETIRAcetam 100 mg/ml (5ml) Oral Syringe PEG SCH ×2 (11:00→18:15)
[2017-06-28] MEDS: Saccharomyces Boulardi 250 mg Cap PEG SCH (11:04)
[2017-06-29] MEDS: Acetylcysteine 20% Inhal Soln (4ml) INH SCH ×3 (01:33→16:04)
[2017-06-29] MEDS: Albuterol-Ipratrop 3 mg / 0.5 (3 ml) UD INH SCH ×3 (01:34→16:04)
--- NOTE | 2017-06-29 07:15 | CP.PCM.PN ---
<Al Srivastava - Last Filed: 06/29/17 07:13> Subjective - Date & Time of Evaluation Date of Evaluation: 06/29/17 Time of Evaluation: 07:15 - Subjective Subjective: PGY1 Medicine Note for Dr. Chavis Patient seen and examined this morning at bedside. Patient non-responsive 2/2 to anoxic brain injury sustained on 05/2015 Objective - Vital Signs/Intake and Output Vital Signs (last 24 hours): Temp Pulse Resp BP Pulse Ox 97.5 F L 61 20 104/66 98 06/29/17 00:00 06/29/17 00:00 06/29/17 00:00 06/29/17 00:00 06/29/17 00:00 Intake and Output: 06/29/17 06/29/17 06:59 18:59 Intake Total 1100 Output Total 700 Balance 400 - Medications Medications: Current Medications Acetylcysteine (Acetylcysteine 20%) 4 ml INH RQ8 [facility] Last Admin: 06/29/17 01:33 Dose: 4 ml Albuterol/Ipratropium (Duoneb 3 Mg/0.5 Mg (3 Ml) Ud) 3 ml INH RQ8 [facility] Last Admin: 06/29/17 01:34 Dose: 3 ml Aspirin (Aspirin Chewable) 81 mg PEG DAILY [facility] Last Admin: 06/28/17 11:00 Dose: 81 mg Bethanechol Chloride (Urecholine) 50 mg PEG TID [facility] Last Admin: 06/28/17 18:16 Dose: 50 mg Carvedilol (Coreg) 3.125 mg PEG BID [facility] Last Admin: 06/28/17 18:14 Dose: 3.125 mg Clopidogrel Bisulfate (Plavix) 75 mg PEG DAILY [facility] Last Admin: 06/28/17 11:00 Dose: 75 mg Emollient Ointment (Vaseline Oint) 5 gm TOP DAILY PRN PRN Reason: Dry skin Enoxaparin Sodium (Lovenox) 40 mg SC DAILY [facility] Last Admin: 06/28/17 11:00 Dose: 40 mg Famotidine (Pepcid) 20 mg PEG BID [facility] Last Admin: 06/28/17 18:15 Dose: 20 mg Finasteride (Proscar) 5 mg PEG DAILY [facility] Last Admin: 06/28/17 11:00 Dose: 5 mg Levetiracetam (Keppra) 500 mg PEG BID [facility] Last Admin: 06/28/17 18:15 Dose: 500 mg Saccharomyces Boulardii (Florastor) 250 mg PEG DAILY [facility] Last Admin: 06/28/17 11:04 Dose: 250 mg Scopolamine (Transderm-Scop) 1 patch TD Q3D [facility] Last Admin: 06/27/17 21:07 Dose: 1 patch Tamsulosin HCl (Flomax) 0.4 mg PEG DAILY [facility] Last Admin: 06/28/17 11:01 Dose: 0.4 mg - Labs Labs: 06/22/17 07:45 06/22/17 07:45 PT 10.6 SECONDS (9.7-12.2) 11/24/15 14:10 INR 1.0 11/24/15 14:10 APTT 25 SECONDS (21-34) 11/24/15 14:10 - Constitutional Appears: Non-toxic, No Acute Distress - Head Exam Head Exam: ATRAUMATIC, NORMOCEPHALIC - ENT Exam ENT Exam: Mucous Membranes Moist - Respiratory Exam Respiratory Exam: Clear to Ausculation Bilateral. absent: Accessory Muscle Use , Respiratory Distress - Cardiovascular Exam Cardiovascular Exam: REGULAR RHYTHM, +S1, +S2 - GI/Abdominal Exam GI & Abdominal Exam: Soft, Normal Bowel Sounds. absent: Distended, Rigid - Neurological Exam Neurological Exam: Altered Additional comments: Patient non responsive 2/2 to anoxic brain injury on 05/2015 - Skin Skin Exam: Dry, Normal Color, Warm Assessment and Plan - Assessment and Plan (Free Text) Plan: Anoxic encephalopathy Assessment & Plan: s/p cardiac arrest in 05/2015 no acute changes Pt has non spontaneous movements. continue current management. Continue tube feeds- at goal of 60, feedings held at night due to fluid overload Urinary tract infection Assessment & Plan: Resolved Patient afebrile WBC count stable as of 06/22/17 Tylenol 650mg po q6 PEG PRN UA and Urine Cx ordered on 05/28/17 showed gram negative rods --> Proteus Mirabilis was started Primaxin 500mg IV Q6 on 05/30/17-- DC Urinary retention Assessment & Plan: Unchanged 06/27/17: Continue bladder massages to aid in voiding. 06/25/17: Patient voids with movement. Continue bladder massages to aid in voiding. 06/23/17: Patient will need to have daily bladder massage to allow for complete voiding 06/17/17: Nursing communication placed in: straight catherization with bladder scan> 100ml 06/08: urinary retention yesterday, was given 40mg lasix iv and patient was able to urinate through condom baker Take note condom cath not always securely in place so Is and Os are approximate as patient does wet bed Ordered- new condom catheter on 05/22/17 Flomax 0.4mg PEG daily Proscar 5mg PEG daily continue Bethanecol 50mg PEG TID- started after persistent retention and found to be effective. monitor I's and O's Check bladder scan for residual urine three times weekly Respiratory failure Assessment & Plan: Trach in place, continue daily monitoring for secretions. No change in management at this time. Continue with aggressive suctioning multiple times a day per respiratory therapist. Monitor for signs of respiratory distress Thick secretions Duoneb 3ml INH Q6 and Mucomyst 4ml INH Q6H Robitussin 100mg PEG Q12H Scopolamine 1 patch TD Q3D [facility] Repeat CXR on 05/28/17: linear increased consolidative changes in the right mid- lung zone and left lung base which may represent atelectasis and/or infiltrate. Questionable trace left pleural effusion. moderate venous congestion. cardiomegaly. degenerative changes in the spine and shoulders Sacral ulcer Assessment & Plan: Healed Cont with offloading/cushioning/turning Continue frequent turning, protective ointment and skin checks. History of coronary artery disease Assessment & Plan: s/p cardiac stents on 06/13/15 Cont ASA 81mg via PEG daily Cont Coreg 3.125mg PEG BID Cont Plavix 75mg PO daily Seizures Assessment & Plan: Continue Keppra 500mg PEG BID for seizure prophylaxis Monitor for activity Lower extremity edema Assessment & Plan: Improved SCDs in place Pressure ulcer boots on b/l Continue to monitor Prophylactic measure Assessment & Plan: Pepcid 20 mg PEG BID Lovenox 40mg SC daily SCDs and offloading boots continue to turn and reposition q2hrs Feeds increased to 50cc/hr. Per paper mill manager (05/02/17): tube feed goal: Isosource 1.5 @ 50cc/h Will continue tube feeds @ 50 with goal of 60cc/h Continue to monitor medication administrations and clinical presentation weekly labs. vasoline ointment applied to feet prn to prevent hyperkeratosis Stop feeding from 10pm-6am, placed into nursing communication (06/16/17) Al Srivastava PGY1 <Amandeep Chavis H - Last Filed: 06/29/17 12:58> Objective - Vital Signs/Intake and Output Vital Signs (last 24 hours): Temp Pulse Resp BP Pulse Ox 98.6 F 82 20 117/63 100 06/29/17 08:21 06/29/17 08:21 06/29/17 08:21 06/29/17 08:21 06/29/17 08:21 Intake and Output: 06/29/17 06/29/17 06:59 18:59 Intake Total 1100 Output Total 700 Balance 400 - Medications Medications: Current Medications Acetylcysteine (Acetylcysteine 20%) 4 ml INH RQ8 [facility] Last Admin: 06/29/17 07:26 Dose: 4 ml Albuterol/Ipratropium (Duoneb 3 Mg/0.5 Mg (3 Ml) Ud) 3 ml INH RQ8 [facility] Last Admin: 06/29/17 07:26 Dose: 3 ml Aspirin (Aspirin Chewable) 81 mg PEG DAILY [facility] Last Admin: 06/29/17 09:16 Dose: 81 mg Bethanechol Chloride (Urecholine) 50 mg PEG TID [facility] Last Admin: 06/29/17 09:15 Dose: 50 mg Carvedilol (Coreg) 3.125 mg PEG BID [facility] Last Admin: 06/29/17 09:16 Dose: 3.125 mg Clopidogrel Bisulfate (Plavix) 75 mg PEG DAILY [facility] Last Admin: 06/28/17 11:00 Dose: 75 mg Emollient Ointment (Vaseline Oint) 5 gm TOP DAILY PRN PRN Reason: Dry skin Enoxaparin Sodium (Lovenox) 40 mg SC DAILY [facility] Last Admin: 06/29/17 09:16 Dose: 40 mg Famotidine (Pepcid) 20 mg PEG BID [facility] Last Admin: 06/29/17 09:15 Dose: 20 mg Finasteride (Proscar) 5 mg PEG DAILY [facility] Last Admin: 06/29/17 09:15 Dose: 5 mg Levetiracetam (Keppra) 500 mg PEG BID [facility] Last Admin: 06/29/17 09:15 Dose: 500 mg Saccharomyces Boulardii (Florastor) 250 mg PEG DAILY [facility] Last Admin: 06/29/17 09:15 Dose: 250 mg Scopolamine (Transderm-Scop) 1 patch TD Q3D [facility] Last Admin: 06/27/17 21:07 Dose: 1 patch Tamsulosin HCl (Flomax) 0.4 mg PEG DAILY [facility] Last Admin: 06/29/17 09:15 Dose: 0.4 mg - Labs Labs: 06/29/17 07:07 06/29/17 07:07 PT 10.6 SECONDS (9.7-12.2) 11/24/15 14:10 INR 1.0 11/24/15 14:10 APTT 25 SECONDS (21-34) 11/24/15 14:10 Assessment and Plan (1) Prophylactic measure Status: Acute (2) Anoxic encephalopathy Status: Chronic (3) STEMI (ST elevation myocardial infarction) Status: Acute (4) Cardiac arrest Status: Acute (5) Seizures Status: Acute (6) Respiratory failure Status: Chronic Attending/Attestation - Attestation I have personally seen and examined this patient.: Yes I have fully participated in the care of the patient.: Yes I have reviewed all pertinent clinical information, including history, physical exam and plan: Yes Notes (Text): Medical Attending: Patient was seen and examined by me as well. Agree with the above note by the resident. At this time there have been no large changes. No change in situation. Amandeep Chavis
[2017-06-29 07:36] LABS: BASO % 0.5 % (0.0-2.0); EOS # 0.4 K/uL (0.0-0.7); EOS % 5.6 % (0.0-4.0); HEMOGLOBIN 11.4 g/dL (12.0-18.0); LYMPH % 25.6 % (20.0-40.0); MEAN CELL VOLUME 89.8 fL (80.0-94.0); MEAN CORPUSCULAR HEMOGLOBIN 29.7 pg (27.0-31.0); MEAN CORPUSCULAR HGB CONC 33.1 g/dL (33.0-37.0); MEAN PLATELET VOLUME 9.1 fL (7.2-11.7); MONO # 0.8 K/uL (0.0-0.8); MONO % 9.7 % (0.0-10.0); NEUT # 4.6 K/uL (1.8-7.0); NEUT % 58.6 % (50.0-75.0); RBC 3.83 Mil/uL (4.40-5.90); RED CELL DISTRIBUTION WIDTH 16.3 % (11.5-14.5); WHITE BLOOD COUNT 7.9 K/uL (4.8-10.8)
[2017-06-29 07:52] LABS: ALBUMIN 3.4 g/dL (3.5-5.0)
[2017-06-29 07:54] LABS: GFR NON-AFRICAN AMERICAN > 60
[2017-06-29 07:55] LABS: ALB/GLOB RATIO 0.7 (1.0-2.1); ALT/SGPT 75 U/L (21-72); AST/SGOT 38 U/L (17-59); BLOOD UREA NITROGEN 10 mg/dL (9-20); CALCIUM 8.4 mg/dl (8.6-10.4)
[2017-06-29] MEDS: Saccharomyces Boulardi 250 mg Cap PEG SCH (09:15)
[2017-06-29] MEDS: levETIRAcetam 100 mg/ml (5ml) Oral Syringe PEG SCH ×2 (09:15→17:34)
[2017-06-29] MEDS: Enoxaparin 40 mg Syringe SC SCH (09:16)
[2017-06-30] MEDS: Acetylcysteine 20% Inhal Soln (4ml) INH SCH ×2 (01:39→07:53)
[2017-06-30] MEDS: Albuterol-Ipratrop 3 mg / 0.5 (3 ml) UD INH SCH ×3 (01:39→16:45)
[2017-06-30] MEDS: Enoxaparin 40 mg Syringe SC SCH (09:00)
[2017-06-30] MEDS: levETIRAcetam 100 mg/ml (5ml) Oral Syringe PEG SCH ×2 (09:32→17:24)
--- NOTE | 2017-06-30 11:04 | CP.PCM.PN ---
<Al Srivastava - Last Filed: 06/30/17 11:06> Subjective - Date & Time of Evaluation Date of Evaluation: 06/30/17 Time of Evaluation: 11:02 - Subjective Subjective: PGY1 Medicine Note for Dr. Chavis Patient seen and examined this morning at bedside. Patient non-responsive 2/2 to anoxic brain injury sustained on 05/2015 Objective - Vital Signs/Intake and Output Vital Signs (last 24 hours): Temp Pulse Resp BP Pulse Ox 99 F 71 23 120/60 99 06/30/17 08:09 06/30/17 08:09 06/30/17 08:09 06/30/17 08:09 06/30/17 08:09 Intake and Output: 06/30/17 06/30/17 06:59 18:59 Intake Total 700 700 Output Total 250 Balance 700 450 - Medications Medications: Current Medications Albuterol/Ipratropium (Duoneb 3 Mg/0.5 Mg (3 Ml) Ud) 3 ml INH RQ8 [facility] Last Admin: 06/30/17 07:53 Dose: 3 ml Bethanechol Chloride (Urecholine) 50 mg PEG TID [facility] Last Admin: 06/30/17 09:35 Dose: 50 mg Emollient Ointment (Vaseline Oint) 5 gm TOP DAILY PRN PRN Reason: Dry skin Enoxaparin Sodium (Lovenox) 40 mg SC DAILY [facility] Last Admin: 06/29/17 09:16 Dose: 40 mg Levetiracetam (Keppra) 500 mg PEG BID [facility] Last Admin: 06/30/17 09:32 Dose: 500 mg Scopolamine (Transderm-Scop) 1 patch TD Q3D [facility] Last Admin: 06/27/17 21:07 Dose: 1 patch - Labs Labs: 06/29/17 07:07 06/29/17 07:07 PT 10.6 SECONDS (9.7-12.2) 11/24/15 14:10 INR 1.0 11/24/15 14:10 APTT 25 SECONDS (21-34) 11/24/15 14:10 - Constitutional Appears: Non-toxic, No Acute Distress - Head Exam Head Exam: ATRAUMATIC, NORMOCEPHALIC - ENT Exam ENT Exam: Mucous Membranes Moist - Respiratory Exam Respiratory Exam: Accessory Muscle Use, Clear to Ausculation Bilateral, Respiratory Distress, NORMAL BREATHING PATTERN. absent: Wheezes Additional comments: Trach in place. No abnormal growth in tubing. - Cardiovascular Exam Cardiovascular Exam: REGULAR RHYTHM, +S1, +S2 - GI/Abdominal Exam GI & Abdominal Exam: Soft, Normal Bowel Sounds. absent: Guarding, Rigid - Neurological Exam Neurological Exam: Altered Additional comments: Patient non responsive 2/2 to anoxic brain injury on 05/2015 - Skin Skin Exam: Dry, Warm Additional comments: Feeding tube c/d/i Assessment and Plan - Assessment and Plan (Free Text) Plan: Anoxic encephalopathy Assessment & Plan: s/p cardiac arrest in 05/2015 no acute changes Pt has non spontaneous movements. continue current management. Continue tube feeds- at goal of 60, feedings held at night due to fluid overload Urinary tract infection Assessment & Plan: Resolved Patient afebrile WBC count stable as of 06/22/17 Tylenol 650mg po q6 PEG PRN UA and Urine Cx ordered on 05/28/17 showed gram negative rods --> Proteus Mirabilis was started Primaxin 500mg IV Q6 on 05/30/17-- DC Urinary retention Assessment & Plan: Unchanged 06/27/17: Continue bladder massages to aid in voiding. 06/25/17: Patient voids with movement. Continue bladder massages to aid in voiding. 06/23/17: Patient will need to have daily bladder massage to allow for complete voiding 06/17/17: Nursing communication placed in: straight catherization with bladder scan> 100ml 06/08: urinary retention yesterday, was given 40mg lasix iv and patient was able to urinate through condom baker Take note condom cath not always securely in place so Is and Os are approximate as patient does wet bed Ordered- new condom catheter on 05/22/17 Flomax 0.4mg PEG daily Proscar 5mg PEG daily continue Bethanecol 50mg PEG TID- started after persistent retention and found to be effective. monitor I's and O's Check bladder scan for residual urine three times weekly Respiratory failure Assessment & Plan: Trach in place, continue daily monitoring for secretions. No change in management at this time. Continue with aggressive suctioning multiple times a day per respiratory therapist. Monitor for signs of respiratory distress Thick secretions Duoneb 3ml INH Q6 and Mucomyst 4ml INH Q6H Robitussin 100mg PEG Q12H Scopolamine 1 patch TD Q3D JOO Repeat CXR on 05/28/17: linear increased consolidative changes in the right mid- lung zone and left lung base which may represent atelectasis and/or infiltrate. Questionable trace left pleural effusion. moderate venous congestion. cardiomegaly. degenerative changes in the spine and shoulders Sacral ulcer Assessment & Plan: Healed Cont with offloading/cushioning/turning Continue frequent turning, protective ointment and skin checks. History of coronary artery disease Assessment & Plan: s/p cardiac stents on 06/13/15 Cont ASA 81mg via PEG daily Cont Coreg 3.125mg PEG BID Cont Plavix 75mg PO daily Seizures Assessment & Plan: Continue Keppra 500mg PEG BID for seizure prophylaxis Monitor for activity Lower extremity edema Assessment & Plan: Improved SCDs in place Pressure ulcer boots on b/l Continue to monitor Prophylactic measure Assessment & Plan: Pepcid 20 mg PEG BID Lovenox 40mg SC daily SCDs and offloading boots continue to turn and reposition q2hrs Feeds increased to 50cc/hr. Per melter operator (05/02/17): tube feed goal: Isosource 1.5 @ 50cc/h Will continue tube feeds @ 50 with goal of 60cc/h Continue to monitor medication administrations and clinical presentation weekly labs. vasoline ointment applied to feet prn to prevent hyperkeratosis Stop feeding from 10pm-6am, placed into nursing communication (06/16/17) Case discussed with Dr. Palmira Valdovinosn PGY1 <Amandeep Chavis H - Last Filed: 06/30/17 12:04> Objective - Vital Signs/Intake and Output Vital Signs (last 24 hours): Temp Pulse Resp BP Pulse Ox 99 F 71 23 120/60 99 06/30/17 08:09 06/30/17 08:09 06/30/17 08:09 06/30/17 08:09 06/30/17 08:09 Intake and Output: 06/30/17 06/30/17 06:59 18:59 Intake Total 700 700 Output Total 250 Balance 700 450 - Medications Medications: Current Medications Albuterol/Ipratropium (Duoneb 3 Mg/0.5 Mg (3 Ml) Ud) 3 ml INH RQ8 [facility] Last Admin: 06/30/17 07:53 Dose: 3 ml Bethanechol Chloride (Urecholine) 50 mg PEG TID [facility] Last Admin: 06/30/17 09:35 Dose: 50 mg Emollient Ointment (Vaseline Oint) 5 gm TOP DAILY PRN PRN Reason: Dry skin Enoxaparin Sodium (Lovenox) 40 mg SC DAILY [facility] Last Admin: 06/29/17 09:16 Dose: 40 mg Levetiracetam (Keppra) 500 mg PEG BID [facility] Last Admin: 06/30/17 09:32 Dose: 500 mg Scopolamine (Transderm-Scop) 1 patch TD Q3D [facility] Last Admin: 06/27/17 21:07 Dose: 1 patch - Labs Labs: 06/29/17 07:07 06/29/17 07:07 PT 10.6 SECONDS (9.7-12.2) 11/24/15 14:10 INR 1.0 11/24/15 14:10 APTT 25 SECONDS (21-34) 11/24/15 14:10 Assessment and Plan (1) Prophylactic measure Status: Acute (2) Anoxic encephalopathy Status: Chronic (3) STEMI (ST elevation myocardial infarction) Status: Acute (4) Cardiac arrest Status: Acute (5) Seizures Status: Acute (6) Respiratory failure Status: Chronic Attending/Attestation - Attestation I have personally seen and examined this patient.: Yes I have fully participated in the care of the patient.: Yes I have reviewed all pertinent clinical information, including history, physical exam and plan: Yes Notes (Text): 06/30/17 12:04 Medical attending: Patient was seen and examined by me, agrees the above note by medical technicians. At this point time we don't have any new news to report the situation is unchanged from before Thank you very much, Amandeep Chavis
[2017-07-01] MEDS: Albuterol-Ipratrop 3 mg / 0.5 (3 ml) UD INH SCH ×4 (01:37→23:56)
[2017-07-01] MEDS: levETIRAcetam 100 mg/ml (5ml) Oral Syringe PEG SCH ×2 (10:17→17:35)
[2017-07-01] MEDS: Saccharomyces Boulardi 250 mg Cap PEG SCH (10:17)
[2017-07-01] MEDS: Enoxaparin 40 mg Syringe SC SCH (10:19)
--- NOTE | 2017-07-01 18:12 | CP.PCM.PN ---
<Al Srivastava - Last Filed: 07/01/17 18:09> Subjective - Date & Time of Evaluation Date of Evaluation: 07/01/17 Time of Evaluation: 06:45 - Subjective Subjective: PGY1 Medicine Note for Dr. Chavis Patient seen and examined this morning at bedside. Patient non-responsive 2/2 to anoxic brain injury sustained on 05/2015 Objective - Vital Signs/Intake and Output Vital Signs (last 24 hours): Temp Pulse Resp BP Pulse Ox 98.6 F 70 18 116/81 100 07/01/17 16:02 07/01/17 16:02 07/01/17 16:02 07/01/17 16:02 07/01/17 16:02 Intake and Output: 07/01/17 07/01/17 06:59 18:59 Intake Total 1150 Output Total 850 1200 Balance 300 -1200 - Medications Medications: Current Medications Albuterol/Ipratropium (Duoneb 3 Mg/0.5 Mg (3 Ml) Ud) 3 ml INH RQ8 [facility] Last Admin: 07/01/17 16:38 Dose: 3 ml Aspirin (Aspirin Chewable) 81 mg PEG DAILY [facility] Last Admin: 07/01/17 10:16 Dose: 81 mg Bethanechol Chloride (Urecholine) 50 mg PEG TID [facility] Last Admin: 07/01/17 17:35 Dose: 50 mg Carvedilol (Coreg) 3.125 mg PEG BID [facility] Last Admin: 07/01/17 17:35 Dose: 3.125 mg Clopidogrel Bisulfate (Plavix) 75 mg PEG DAILY [facility] Last Admin: 07/01/17 10:17 Dose: 75 mg Emollient Ointment (Vaseline Oint) 5 gm TOP DAILY PRN PRN Reason: Dry skin Enoxaparin Sodium (Lovenox) 40 mg SC DAILY [facility] Last Admin: 07/01/17 10:19 Dose: 40 mg Famotidine (Pepcid) 20 mg PEG DAILY [facility] Last Admin: 07/01/17 10:19 Dose: 20 mg Finasteride (Proscar) 5 mg PEG DAILY [facility] Last Admin: 07/01/17 10:17 Dose: 5 mg Levetiracetam (Keppra) 500 mg PEG BID [facility] Last Admin: 07/01/17 17:35 Dose: 500 mg Saccharomyces Boulardii (Florastor) 250 mg PEG DAILY [facility] Last Admin: 07/01/17 10:17 Dose: 250 mg Scopolamine (Transderm-Scop) 1 patch TD Q3D [facility] Last Admin: 06/30/17 21:01 Dose: 1 patch Tamsulosin HCl (Flomax) 0.4 mg PEG DAILY [facility] Last Admin: 07/01/17 10:16 Dose: 0.4 mg - Labs Labs: 06/29/17 07:07 06/29/17 07:07 PT 10.6 SECONDS (9.7-12.2) 11/24/15 14:10 INR 1.0 11/24/15 14:10 APTT 25 SECONDS (21-34) 11/24/15 14:10 - Constitutional Appears: Non-toxic, No Acute Distress - Neck Exam Additional comments: Trach in place - Respiratory Exam Respiratory Exam: Clear to Ausculation Bilateral, NORMAL BREATHING PATTERN. absent: Accessory Muscle Use, Wheezes, Respiratory Distress - Cardiovascular Exam Cardiovascular Exam: REGULAR RHYTHM, +S1, +S2 - GI/Abdominal Exam GI & Abdominal Exam: Soft, Normal Bowel Sounds. absent: Distended, Firm, Guarding - Exam Additional comments: Bladder massage during rounds to fisherman helper in urination. - Back Exam Additional comments: Patient rolled to examine bad today. No evidence of skin breakdown. No ulcers at this time. - Neurological Exam Neurological Exam: Altered Additional comments: Patient non-responsive 2/2 to anoxic brain injury sustained on 05/2015 - Skin Skin Exam: Dry, Normal Color, Warm Assessment and Plan - Assessment and Plan (Free Text) Plan: Anoxic encephalopathy Assessment & Plan: s/p cardiac arrest in 05/2015 no acute changes Pt has non spontaneous movements. continue current management. Continue tube feeds- at goal of 60, feedings held at night due to fluid overload Urinary tract infection Assessment & Plan: Resolved Patient afebrile WBC count stable as of 06/22/17 Tylenol 650mg po q6 PEG PRN UA and Urine Cx ordered on 05/28/17 showed gram negative rods --> Proteus Mirabilis was started Primaxin 500mg IV Q6 on 05/30/17-- DC Urinary retention Assessment & Plan: Unchanged 06/27/17: Continue bladder massages to aid in voiding. 06/25/17: Patient voids with movement. Continue bladder massages to aid in voiding. 06/23/17: Patient will need to have daily bladder massage to allow for complete voiding 06/17/17: Nursing communication placed in: straight catherization with bladder scan> 100ml 06/08: urinary retention yesterday, was given 40mg lasix iv and patient was able to urinate through condom baker Take note condom cath not always securely in place so Is and Os are approximate as patient does wet bed Ordered- new condom catheter on 05/22/17 Flomax 0.4mg PEG daily Proscar 5mg PEG daily continue Bethanecol 50mg PEG TID- started after persistent retention and found to be effective. monitor I's and O's Check bladder scan for residual urine three times weekly Respiratory failure Assessment & Plan: Trach in place, continue daily monitoring for secretions. No change in management at this time. Continue with aggressive suctioning multiple times a day per respiratory therapist. Monitor for signs of respiratory distress Thick secretions Duoneb 3ml INH Q6 and Mucomyst 4ml INH Q6H Robitussin 100mg PEG Q12H Scopolamine 1 patch TD Q3D JOO Repeat CXR on 05/28/17: linear increased consolidative changes in the right mid- lung zone and left lung base which may represent atelectasis and/or infiltrate. Questionable trace left pleural effusion. moderate venous congestion. cardiomegaly. degenerative changes in the spine and shoulders Sacral ulcer Assessment & Plan: Healed Cont with offloading/cushioning/turning Continue frequent turning, protective ointment and skin checks. Patient rolled today, no signs of skin breakdown at this time. History of coronary artery disease Assessment & Plan: s/p cardiac stents on 06/13/15 Cont ASA 81mg via PEG daily Cont Coreg 3.125mg PEG BID Cont Plavix 75mg PO daily Seizures Assessment & Plan: Continue Keppra 500mg PEG BID for seizure prophylaxis Monitor for activity Lower extremity edema Assessment & Plan: Improved SCDs in place Pressure ulcer boots on b/l Continue to monitor Prophylactic measure Assessment & Plan: Pepcid 20 mg PEG BID Lovenox 40mg SC daily SCDs and offloading boots continue to turn and reposition q2hrs Feeds increased to 50cc/hr. Per legal entity controller (05/02/17): tube feed goal: Isosource 1.5 @ 50cc/h Will continue tube feeds @ 50 with goal of 60cc/h Continue to monitor medication administrations and clinical presentation weekly labs. vasoline ointment applied to feet prn to prevent hyperkeratosis Stop feeding from 10pm-6am, placed into nursing communication (06/16/17) Case discussed with Dr. Palmira Melendez Carola PGY1 <Amandeep Chavis H - Last Filed: 07/02/17 07:30> Objective - Vital Signs/Intake and Output Vital Signs (last 24 hours): Temp Pulse Resp BP Pulse Ox 98.1 F 75 20 110/72 98 07/02/17 00:00 07/02/17 00:00 07/02/17 00:00 07/02/17 00:00 07/02/17 00:00 Intake and Output: 07/02/17 07/02/17 06:59 18:59 Intake Total 1750 Balance 1750 - Medications Medications: Current Medications Albuterol/Ipratropium (Duoneb 3 Mg/0.5 Mg (3 Ml) Ud) 3 ml INH RQ8 [facility] Last Admin: 07/01/17 23:56 Dose: 3 ml Aspirin (Aspirin Chewable) 81 mg PEG DAILY [facility] Last Admin: 07/01/17 10:16 Dose: 81 mg Bethanechol Chloride (Urecholine) 50 mg PEG TID [facility] Last Admin: 07/01/17 17:35 Dose: 50 mg Carvedilol (Coreg) 3.125 mg PEG BID [facility] Last Admin: 07/01/17 17:35 Dose: 3.125 mg Clopidogrel Bisulfate (Plavix) 75 mg PEG DAILY [facility] Last Admin: 07/01/17 10:17 Dose: 75 mg Emollient Ointment (Vaseline Oint) 5 gm TOP DAILY PRN PRN Reason: Dry skin Enoxaparin Sodium (Lovenox) 40 mg SC DAILY [facility] Last Admin: 07/01/17 10:19 Dose: 40 mg Famotidine (Pepcid) 20 mg PEG DAILY [facility] Last Admin: 07/01/17 10:19 Dose: 20 mg Finasteride (Proscar) 5 mg PEG DAILY [facility] Last Admin: 07/01/17 10:17 Dose: 5 mg Levetiracetam (Keppra) 500 mg PEG BID [facility] Last Admin: 07/01/17 17:35 Dose: 500 mg Saccharomyces Boulardii (Florastor) 250 mg PEG DAILY [facility] Last Admin: 07/01/17 10:17 Dose: 250 mg Scopolamine (Transderm-Scop) 1 patch TD Q3D [facility] Last Admin: 06/30/17 21:01 Dose: 1 patch Tamsulosin HCl (Flomax) 0.4 mg PEG DAILY [facility] Last Admin: 07/01/17 10:16 Dose: 0.4 mg - Labs Labs: 06/29/17 07:07 06/29/17 07:07 PT 10.6 SECONDS (9.7-12.2) 11/24/15 14:10 INR 1.0 11/24/15 14:10 APTT 25 SECONDS (21-34) 11/24/15 14:10 Assessment and Plan (1) Prophylactic measure Status: Acute (2) Anoxic encephalopathy Status: Chronic (3) STEMI (ST elevation myocardial infarction) Status: Acute (4) Cardiac arrest Status: Acute (5) Seizures Status: Acute (6) Respiratory failure Status: Chronic Attending/Attestation - Attestation I have personally seen and examined this patient.: Yes I have fully participated in the care of the patient.: Yes I have reviewed all pertinent clinical information, including history, physical exam and plan: Yes Notes (Text): 07/02/17 07:30 Medical Attending: Patient was seen and examined by me. Today we rolled the patient over and examined his back. He did not have any open sacral wounds at this time. No changes. Situation remains the same. Amandeep Chavis
[2017-07-02] MEDS: Albuterol-Ipratrop 3 mg / 0.5 (3 ml) UD INH SCH ×2 (07:41→15:51)
--- NOTE | 2017-07-02 07:47 | CP.PCM.PN ---
Subjective - Date & Time of Evaluation Date of Evaluation: 07/02/17 Time of Evaluation: 07:44 - Subjective Subjective: PGY1 Medicine Note for Dr. Chavis Patient seen and examined this morning at bedside. Patient non-responsive 2/2 to anoxic brain injury sustained on 05/2015 Objective - Vital Signs/Intake and Output Vital Signs (last 24 hours): Temp Pulse Resp BP Pulse Ox 98.1 F 75 20 110/72 98 07/02/17 00:00 07/02/17 00:00 07/02/17 00:00 07/02/17 00:00 07/02/17 00:00 Intake and Output: 07/02/17 07/02/17 06:59 18:59 Intake Total 1750 Balance 1750 - Medications Medications: Current Medications Albuterol/Ipratropium (Duoneb 3 Mg/0.5 Mg (3 Ml) Ud) 3 ml INH RQ8 [facility] Last Admin: 07/02/17 07:41 Dose: 3 ml Aspirin (Aspirin Chewable) 81 mg PEG DAILY [facility] Last Admin: 07/01/17 10:16 Dose: 81 mg Bethanechol Chloride (Urecholine) 50 mg PEG TID [facility] Last Admin: 07/01/17 17:35 Dose: 50 mg Carvedilol (Coreg) 3.125 mg PEG BID [facility] Last Admin: 07/01/17 17:35 Dose: 3.125 mg Clopidogrel Bisulfate (Plavix) 75 mg PEG DAILY [facility] Last Admin: 07/01/17 10:17 Dose: 75 mg Emollient Ointment (Vaseline Oint) 5 gm TOP DAILY PRN PRN Reason: Dry skin Enoxaparin Sodium (Lovenox) 40 mg SC DAILY [facility] Last Admin: 07/01/17 10:19 Dose: 40 mg Famotidine (Pepcid) 20 mg PEG DAILY [facility] Last Admin: 07/01/17 10:19 Dose: 20 mg Finasteride (Proscar) 5 mg PEG DAILY [facility] Last Admin: 07/01/17 10:17 Dose: 5 mg Levetiracetam (Keppra) 500 mg PEG BID [facility] Last Admin: 07/01/17 17:35 Dose: 500 mg Saccharomyces Boulardii (Florastor) 250 mg PEG DAILY [facility] Last Admin: 07/01/17 10:17 Dose: 250 mg Scopolamine (Transderm-Scop) 1 patch TD Q3D [facility] Last Admin: 06/30/17 21:01 Dose: 1 patch Tamsulosin HCl (Flomax) 0.4 mg PEG DAILY [facility] Last Admin: 07/01/17 10:16 Dose: 0.4 mg - Labs Labs: 06/29/17 07:07 06/29/17 07:07 PT 10.6 SECONDS (9.7-12.2) 11/24/15 14:10 INR 1.0 11/24/15 14:10 APTT 25 SECONDS (21-34) 11/24/15 14:10 - Constitutional Appears: Non-toxic, No Acute Distress - Head Exam Head Exam: ATRAUMATIC, NORMOCEPHALIC - ENT Exam ENT Exam: Mucous Membranes Moist - Respiratory Exam Respiratory Exam: Clear to Ausculation Bilateral, NORMAL BREATHING PATTERN. absent: Accessory Muscle Use, Rhonchi, Wheezes, Respiratory Distress Additional comments: Trach in place. No abnormal growths in tubing. - Cardiovascular Exam Cardiovascular Exam: REGULAR RHYTHM, +S1, +S2 - GI/Abdominal Exam GI & Abdominal Exam: Soft, Normal Bowel Sounds. absent: Distended, Firm, Guarding, Rigid, Tenderness - Exam Additional comments: Condom cath. in place. Bladder massage while examining the patient helps aid in voiding. - Extremities Exam Additional comments: SCDs in place. Pressure ulcer boots in place. - Neurological Exam Neurological Exam: Altered Additional comments: Patient non-responsive 2/2 to anoxic brain injury sustained on 05/2015 - Skin Skin Exam: Dry, Normal Color, Warm Assessment and Plan - Assessment and Plan (Free Text) Plan: Anoxic encephalopathy Assessment & Plan: s/p cardiac arrest in 05/2015 no acute changes Pt has non spontaneous movements. continue current management. Continue tube feeds- at goal of 60, feedings held at night due to fluid overload Urinary tract infection Assessment & Plan: Resolved Patient afebrile WBC count stable as of 06/22/17 Tylenol 650mg po q6 PEG PRN UA and Urine Cx ordered on 05/28/17 showed gram negative rods --> Proteus Mirabilis was started Primaxin 500mg IV Q6 on 05/30/17-- DC Urinary retention Assessment & Plan: Unchanged 06/27/17: Continue bladder massages to aid in voiding. 06/25/17: Patient voids with movement. Continue bladder massages to aid in voiding. 06/23/17: Patient will need to have daily bladder massage to allow for complete voiding 06/17/17: Nursing communication placed in: straight catherization with bladder scan> 100ml 06/08: urinary retention yesterday, was given 40mg lasix iv and patient was able to urinate through condom baker Take note condom cath not always securely in place so Is and Os are approximate as patient does wet bed Ordered- new condom catheter on 05/22/17 Flomax 0.4mg PEG daily Proscar 5mg PEG daily continue Bethanecol 50mg PEG TID- started after persistent retention and found to be effective. monitor I's and O's Check bladder scan for residual urine three times weekly Respiratory failure Assessment & Plan: Trach in place, continue daily monitoring for secretions. No change in management at this time. Continue with aggressive suctioning multiple times a day per respiratory therapist. Monitor for signs of respiratory distress Thick secretions Duoneb 3ml INH Q6 and Mucomyst 4ml INH Q6H Robitussin 100mg PEG Q12H Scopolamine 1 patch TD Q3D JOO Repeat CXR on 05/28/17: linear increased consolidative changes in the right mid- lung zone and left lung base which may represent atelectasis and/or infiltrate. Questionable trace left pleural effusion. moderate venous congestion. cardiomegaly. degenerative changes in the spine and shoulders Sacral ulcer Assessment & Plan: Healed Cont with offloading/cushioning/turning Continue frequent turning, protective ointment and skin checks. History of coronary artery disease Assessment & Plan: s/p cardiac stents on 06/13/15 Cont ASA 81mg via PEG daily Cont Coreg 3.125mg PEG BID Cont Plavix 75mg PO daily Seizures Assessment & Plan: Continue Keppra 500mg PEG BID for seizure prophylaxis Monitor for activity Lower extremity edema Assessment & Plan: Improved SCDs in place Pressure ulcer boots on b/l Continue to monitor Prophylactic measure Assessment & Plan: Pepcid 20 mg PEG BID Lovenox 40mg SC daily SCDs and offloading boots continue to turn and reposition q2hrs Feeds increased to 50cc/hr. Per butter maker (05/02/17): tube feed goal: Isosource 1.5 @ 50cc/h Will continue tube feeds @ 50 with goal of 60cc/h Continue to monitor medication administrations and clinical presentation weekly labs. vasoline ointment applied to feet prn to prevent hyperkeratosis Stop feeding from 10pm-6am, placed into nursing communication (06/16/17) Case discussed with Dr. Palmira Melendez Carola PGY1
[2017-07-02] MEDS: Enoxaparin 40 mg Syringe SC SCH (10:21)
[2017-07-02] MEDS: levETIRAcetam 100 mg/ml (5ml) Oral Syringe PEG SCH ×2 (10:22→17:30)
[2017-07-02] MEDS: Saccharomyces Boulardi 250 mg Cap PEG SCH (10:25)
[2017-07-03] MEDS: Albuterol-Ipratrop 3 mg / 0.5 (3 ml) UD INH SCH ×3 (00:04→15:47)
[2017-07-03] MEDS: Enoxaparin 40 mg Syringe SC SCH (10:21)
[2017-07-03] MEDS: levETIRAcetam 100 mg/ml (5ml) Oral Syringe PEG SCH ×2 (10:22→17:26)
[2017-07-03] MEDS: Saccharomyces Boulardi 250 mg Cap PEG SCH (10:37)
--- NOTE | 2017-07-03 20:01 | CP.PCM.PN ---
Subjective - Date & Time of Evaluation Date of Evaluation: 07/03/17 Time of Evaluation: 20:01 - Subjective Subjective: PGY1 Medicine Note for Dr. Chavis Patient seen and examined this morning at bedside. Patient non-responsive 2/2 to anoxic brain injury sustained on 05/2015 Objective - Vital Signs/Intake and Output Vital Signs (last 24 hours): Temp Pulse Resp BP Pulse Ox 99.1 F 65 20 106/73 100 07/03/17 15:00 07/03/17 15:00 07/03/17 15:00 07/03/17 15:00 07/03/17 15:00 Intake and Output: 07/03/17 07/04/17 18:59 06:59 Intake Total 600 Output Total 300 Balance 300 - Medications Medications: Current Medications Albuterol/Ipratropium (Duoneb 3 Mg/0.5 Mg (3 Ml) Ud) 3 ml INH RQ8 [facility] Last Admin: 07/03/17 15:47 Dose: 3 ml Aspirin (Aspirin Chewable) 81 mg PEG DAILY [facility] Last Admin: 07/03/17 10:21 Dose: 81 mg Bethanechol Chloride (Urecholine) 50 mg PEG TID [facility] Last Admin: 07/03/17 17:29 Dose: 50 mg Carvedilol (Coreg) 3.125 mg PEG BID [facility] Last Admin: 07/03/17 17:29 Dose: 3.125 mg Clopidogrel Bisulfate (Plavix) 75 mg PEG DAILY [facility] Last Admin: 07/03/17 10:21 Dose: 75 mg Emollient Ointment (Vaseline Oint) 5 gm TOP DAILY PRN PRN Reason: Dry skin Enoxaparin Sodium (Lovenox) 40 mg SC DAILY [facility] Last Admin: 07/03/17 10:21 Dose: 40 mg Famotidine (Pepcid) 20 mg PEG DAILY [facility] Last Admin: 07/03/17 10:21 Dose: 20 mg Finasteride (Proscar) 5 mg PEG DAILY [facility] Last Admin: 07/03/17 10:22 Dose: 5 mg Levetiracetam (Keppra) 500 mg PEG BID [facility] Last Admin: 07/03/17 17:26 Dose: 500 mg Saccharomyces Boulardii (Florastor) 250 mg PEG DAILY [facility] Last Admin: 07/03/17 10:37 Dose: 250 mg Scopolamine (Transderm-Scop) 1 patch TD Q3D [facility] Last Admin: 06/30/17 21:01 Dose: 1 patch Tamsulosin HCl (Flomax) 0.4 mg PEG DAILY [facility] Last Admin: 07/03/17 10:37 Dose: 0.4 mg - Labs Labs: 06/29/17 07:07 06/29/17 07:07 PT 10.6 SECONDS (9.7-12.2) 11/24/15 14:10 INR 1.0 11/24/15 14:10 APTT 25 SECONDS (21-34) 11/24/15 14:10 - Constitutional Appears: Non-toxic - Head Exam Head Exam: ATRAUMATIC - ENT Exam ENT Exam: Mucous Membranes Moist - Cardiovascular Exam Cardiovascular Exam: REGULAR RHYTHM - GI/Abdominal Exam GI & Abdominal Exam: Soft, Normal Bowel Sounds. absent: Distended, Tenderness - Skin Skin Exam: Dry, Intact, Normal Color, Warm Assessment and Plan - Assessment and Plan (Free Text) Assessment: Anoxic encephalopathy Assessment & Plan: s/p cardiac arrest in 05/2015 no acute changes Pt has non spontaneous movements. continue current management. Continue tube feeds- at goal of 60, feedings held at night due to fluid overload Urinary tract infection Assessment & Plan: Resolved Patient afebrile WBC count stable as of 06/22/17 Tylenol 650mg po q6 PEG PRN UA and Urine Cx ordered on 05/28/17 showed gram negative rods --> Proteus Mirabilis was started Primaxin 500mg IV Q6 on 05/30/17-- DC Urinary retention Assessment & Plan: Unchanged 06/27/17: Continue bladder massages to aid in voiding. 06/25/17: Patient voids with movement. Continue bladder massages to aid in voiding. 06/23/17: Patient will need to have daily bladder massage to allow for complete voiding 06/17/17: Nursing communication placed in: straight catherization with bladder scan> 100ml 06/08: urinary retention yesterday, was given 40mg lasix iv and patient was able to urinate through condom baker Take note condom cath not always securely in place so Is and Os are approximate as patient does wet bed Ordered- new condom catheter on 05/22/17 Flomax 0.4mg PEG daily Proscar 5mg PEG daily continue Bethanecol 50mg PEG TID- started after persistent retention and found to be effective. monitor I's and O's Check bladder scan for residual urine three times weekly Respiratory failure Assessment & Plan: Trach in place, continue daily monitoring for secretions. No change in management at this time. Continue with aggressive suctioning multiple times a day per respiratory therapist. Monitor for signs of respiratory distress Thick secretions Duoneb 3ml INH Q6 and Mucomyst 4ml INH Q6H Robitussin 100mg PEG Q12H Scopolamine 1 patch TD Q3D JOO Repeat CXR on 05/28/17: linear increased consolidative changes in the right mid- lung zone and left lung base which may represent atelectasis and/or infiltrate. Questionable trace left pleural effusion. moderate venous congestion. cardiomegaly. degenerative changes in the spine and shoulders Sacral ulcer Assessment & Plan: Healed Cont with offloading/cushioning/turning Continue frequent turning, protective ointment and skin checks. History of coronary artery disease Assessment & Plan: s/p cardiac stents on 06/13/15 Cont ASA 81mg via PEG daily Cont Coreg 3.125mg PEG BID Cont Plavix 75mg PO daily Seizures Assessment & Plan: Continue Keppra 500mg PEG BID for seizure prophylaxis Monitor for activity Lower extremity edema Assessment & Plan: Improved SCDs in place Pressure ulcer boots on b/l Continue to monitor Prophylactic measure Assessment & Plan: Pepcid 20 mg PEG BID Lovenox 40mg SC daily SCDs and offloading boots continue to turn and reposition q2hrs Feeds increased to 50cc/hr. Per electric plater (05/02/17): tube feed goal: Isosource 1.5 @ 50cc/h Will continue tube feeds @ 50 with goal of 60cc/h Continue to monitor medication administrations and clinical presentation weekly labs. vasoline ointment applied to feet prn to prevent hyperkeratosis Stop feeding from 10pm-6am, placed into nursing communication (06/16/17)
[2017-07-04] MEDS: Albuterol-Ipratrop 3 mg / 0.5 (3 ml) UD INH SCH ×3 (00:22→16:18)
--- NOTE | 2017-07-04 01:27 | CP.PCM.PN ---
Subjective - Date & Time of Evaluation Date of Evaluation: 07/04/17 Time of Evaluation: 01:26 - Subjective Subjective: PGY1 Medicine Note for Dr. Chavis Patient seen and examined overnight. 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 Objective - Vital Signs/Intake and Output Vital Signs (last 24 hours): Temp Pulse Resp BP Pulse Ox 99.1 F 65 20 106/73 100 07/03/17 15:00 07/03/17 15:00 07/03/17 15:00 07/03/17 15:00 07/03/17 15:00 Intake and Output: 07/03/17 07/04/17 18:59 06:59 Intake Total 600 500 Output Total 300 200 Balance 300 300 - Medications Medications: Current Medications Albuterol/Ipratropium (Duoneb 3 Mg/0.5 Mg (3 Ml) Ud) 3 ml INH RQ8 [facility] Last Admin: 07/04/17 00:22 Dose: 3 ml Aspirin (Aspirin Chewable) 81 mg PEG DAILY [facility] [place] Last Admin: 07/03/17 10:21 Dose: 81 mg Bethanechol Chloride (Urecholine) 50 mg PEG TID [facility] [place] Last Admin: 07/03/17 17:29 Dose: 50 mg Carvedilol (Coreg) 3.125 mg PEG BID [facility] Last Admin: 07/03/17 17:29 Dose: 3.125 mg Clopidogrel Bisulfate (Plavix) 75 mg PEG DAILY [facility] [place] Last Admin: 07/03/17 10:21 Dose: 75 mg Emollient Ointment (Vaseline Oint) 5 gm TOP DAILY PRN PRN Reason: Dry skin Enoxaparin Sodium (Lovenox) 40 mg SC DAILY [facility] [place] Last Admin: 07/03/17 10:21 Dose: 40 mg Famotidine (Pepcid) 20 mg PEG DAILY [facility] [place] Last Admin: 07/03/17 10:21 Dose: 20 mg Finasteride (Proscar) 5 mg PEG DAILY [facility] [place] Last Admin: 07/03/17 10:22 Dose: 5 mg Levetiracetam (Keppra) 500 mg PEG BID [facility] [place] Last Admin: 07/03/17 17:26 Dose: 500 mg Saccharomyces Boulardii (Florastor) 250 mg PEG DAILY [facility] [place] Last Admin: 07/03/17 10:37 Dose: 250 mg Scopolamine (Transderm-Scop) 1 patch TD Q3D [facility] [place] Last Admin: 07/03/17 22:04 Dose: 1 patch Tamsulosin HCl (Flomax) 0.4 mg PEG DAILY [facility] [place] Last Admin: 07/03/17 10:37 Dose: 0.4 mg - Labs Labs: 06/29/17 07:07 06/29/17 07:07 PT 10.6 SECONDS (9.7-12.2) 11/24/15 14:10 INR 1.0 11/24/15 14:10 APTT 25 SECONDS (21-34) 11/24/15 14:10 - Constitutional Appears: Non-toxic, No Acute Distress - Head Exam Head Exam: ATRAUMATIC, NORMOCEPHALIC - Respiratory Exam Respiratory Exam: Clear to Ausculation Bilateral, NORMAL BREATHING PATTERN. absent: Accessory Muscle Use, Wheezes, Respiratory Distress Additional comments: Trach in place, no abnormal growth in tubing. - Cardiovascular Exam Cardiovascular Exam: REGULAR RHYTHM, +S1, +S2 - GI/Abdominal Exam GI & Abdominal Exam: Soft, Normal Bowel Sounds. absent: Distended, Firm, Guarding, Rigid, Tenderness - Extremities Exam Extremities Exam: absent: Pedal Edema - Neurological Exam Neurological Exam: Altered (Patient is non-verbal from anoxic brain injury in 2014.). absent: Alert, Awake Assessment and Plan - Assessment and Plan (Free Text) Plan: Anoxic encephalopathy Assessment & Plan: s/p cardiac arrest in 05/2015 no acute changes Pt has non spontaneous movements. continue current management. Continue tube feeds- at goal of 60, feedings held at night due to fluid overload Urinary tract infection Assessment & Plan: Resolved Patient afebrile WBC count stable as of 06/22/17 Tylenol 650mg po q6 PEG PRN UA and Urine Cx ordered on 05/28/17 showed gram negative rods --> Proteus Mirabilis was started Primaxin 500mg IV Q6 on 05/30/17-- DC Urinary retention Assessment & Plan: Unchanged 06/27/17: Continue bladder massages to aid in voiding. 06/25/17: Patient voids with movement. Continue bladder massages to aid in voiding. 06/23/17: Patient will need to have daily bladder massage to allow for complete voiding 06/17/17: Nursing communication placed in: straight catherization with bladder scan> 100ml 06/08: urinary retention yesterday, was given 40mg lasix iv and patient was able to urinate through condom baker Take note condom cath not always securely in place so Is and Os are approximate as patient does wet bed Ordered- new condom catheter on 05/22/17 Flomax 0.4mg PEG daily Proscar 5mg PEG daily continue Bethanecol 50mg PEG TID- started after persistent retention and found to be effective. monitor I's and O's Check bladder scan for residual urine three times weekly Respiratory failure Assessment & Plan: Trach in place, continue daily monitoring for secretions. No change in management at this time. Continue with aggressive suctioning multiple times a day per respiratory therapist. Monitor for signs of respiratory distress Thick secretions Duoneb 3ml INH Q6 and Mucomyst 4ml INH Q6H Robitussin 100mg PEG Q12H Scopolamine 1 patch TD Q3D JOO Repeat CXR on 05/28/17: linear increased consolidative changes in the right mid- lung zone and left lung base which may represent atelectasis and/or infiltrate. Questionable trace left pleural effusion. moderate venous congestion. cardiomegaly. degenerative changes in the spine and shoulders Sacral ulcer Assessment & Plan: Healed Cont with offloading/cushioning/turning Continue frequent turning, protective ointment and skin checks. History of coronary artery disease Assessment & Plan: s/p cardiac stents on 06/13/15 Cont ASA 81mg via PEG daily Cont Coreg 3.125mg PEG BID Cont Plavix 75mg PO daily Seizures Assessment & Plan: Continue Keppra 500mg PEG BID for seizure prophylaxis Monitor for activity Lower extremity edema Assessment & Plan: Improved SCDs in place Pressure ulcer boots on b/l Continue to monitor Prophylactic measure Assessment & Plan: Pepcid 20 mg PEG BID Lovenox 40mg SC daily SCDs and offloading boots continue to turn and reposition q2hrs Feeds increased to 50cc/hr. Per kosher butcher (05/02/17): tube feed goal: Isosource 1.5 @ 50cc/h Will continue tube feeds @ 50 with goal of 60cc/h Continue to monitor medication administrations and clinical presentation weekly labs. vasoline ointment applied to feet prn to prevent hyperkeratosis Stop feeding from 10pm-6am, placed into nursing communication (06/16/17) Al Srivastava PGY1
[2017-07-04] MEDS: Enoxaparin 40 mg Syringe SC SCH (09:42)
[2017-07-04] MEDS: Saccharomyces Boulardi 250 mg Cap PEG SCH (09:42)
[2017-07-04] MEDS: levETIRAcetam 100 mg/ml (5ml) Oral Syringe PEG SCH ×2 (09:42→17:49)
[2017-07-05] MEDS: Albuterol-Ipratrop 3 mg / 0.5 (3 ml) UD INH SCH ×3 (00:39→16:08)
--- NOTE | 2017-07-05 08:01 | CP.PCM.PN ---
Subjective - Date & Time of Evaluation Date of Evaluation: 07/05/17 Time of Evaluation: 07:59 - Subjective Subjective: PGY1 Medicine Note for Dr. Chavis Patient seen and examined overnight. 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 Objective - Vital Signs/Intake and Output Vital Signs (last 24 hours): Temp Pulse Resp BP Pulse Ox 98.5 F 64 20 118/77 99 07/05/17 01:54 07/05/17 01:54 07/05/17 01:54 07/05/17 01:54 07/05/17 01:54 Intake and Output: 07/05/17 07/05/17 06:59 18:59 Intake Total 600 600 Output Total 250 Balance 600 350 - Medications Medications: Current Medications Albuterol/Ipratropium (Duoneb 3 Mg/0.5 Mg (3 Ml) Ud) 3 ml INH RQ8 [facility] Last Admin: 07/05/17 07:44 Dose: 3 ml Aspirin (Aspirin Chewable) 81 mg PEG DAILY [facility] Last Admin: 07/04/17 09:41 Dose: 81 mg Bethanechol Chloride (Urecholine) 50 mg PEG TID [facility] Last Admin: 07/04/17 17:49 Dose: 50 mg Carvedilol (Coreg) 3.125 mg PEG BID [facility] Last Admin: 07/04/17 17:48 Dose: 3.125 mg Clopidogrel Bisulfate (Plavix) 75 mg PEG DAILY [facility] Last Admin: 07/04/17 09:42 Dose: 75 mg Emollient Ointment (Vaseline Oint) 5 gm TOP DAILY PRN PRN Reason: Dry skin Enoxaparin Sodium (Lovenox) 40 mg SC DAILY [facility] Last Admin: 07/04/17 09:42 Dose: 40 mg Famotidine (Pepcid) 20 mg PEG DAILY [facility] Last Admin: 07/04/17 09:42 Dose: 20 mg Finasteride (Proscar) 5 mg PEG DAILY [facility] Last Admin: 07/04/17 09:43 Dose: 5 mg Levetiracetam (Keppra) 500 mg PEG BID [facility] Last Admin: 07/04/17 17:49 Dose: 500 mg Saccharomyces Boulardii (Florastor) 250 mg PEG DAILY [facility] Last Admin: 07/04/17 09:42 Dose: 250 mg Scopolamine (Transderm-Scop) 1 patch TD Q3D [facility] Last Admin: 07/03/17 22:04 Dose: 1 patch Tamsulosin HCl (Flomax) 0.4 mg PEG DAILY [facility] Last Admin: 07/04/17 09:42 Dose: 0.4 mg - Labs Labs: 06/29/17 07:07 06/29/17 07:07 PT 10.6 SECONDS (9.7-12.2) 11/24/15 14:10 INR 1.0 11/24/15 14:10 APTT 25 SECONDS (21-34) 11/24/15 14:10 - Constitutional Appears: Non-toxic, No Acute Distress - Head Exam Head Exam: ATRAUMATIC, NORMOCEPHALIC - Eye Exam Eye Exam: EOMI, Normal appearance - ENT Exam ENT Exam: Mucous Membranes Moist - Respiratory Exam Respiratory Exam: Clear to Ausculation Bilateral, NORMAL BREATHING PATTERN. absent: Accessory Muscle Use, Respiratory Distress Additional comments: Trach in place, no abnormal growth in tubing. - Cardiovascular Exam Cardiovascular Exam: REGULAR RHYTHM, +S1, +S2 - GI/Abdominal Exam GI & Abdominal Exam: Soft, Normal Bowel Sounds. absent: Distended, Tenderness - Extremities Exam Extremities Exam: Pedal Edema. absent: Calf Tenderness - Neurological Exam Neurological Exam: Altered (Patient is non-verbal from anoxic brain injury in 2014), Awake - Skin Skin Exam: Dry, Normal Color, Warm Assessment and Plan - Assessment and Plan (Free Text) Plan: Anoxic encephalopathy Assessment & Plan: s/p cardiac arrest in 05/2015 no acute changes Pt has non spontaneous movements. continue current management. Continue tube feeds- at goal of 60, feedings held at night due to fluid overload Urinary tract infection Assessment & Plan: Resolved Patient afebrile WBC count stable as of 06/22/17 Tylenol 650mg po q6 PEG PRN UA and Urine Cx ordered on 05/28/17 showed gram negative rods --> Proteus Mirabilis was started Primaxin 500mg IV Q6 on 05/30/17-- DC Urinary retention Assessment & Plan: Unchanged 06/27/17: Continue bladder massages to aid in voiding. 06/25/17: Patient voids with movement. Continue bladder massages to aid in voiding. 06/23/17: Patient will need to have daily bladder massage to allow for complete voiding 06/17/17: Nursing communication placed in: straight catherization with bladder scan> 100ml 06/08: urinary retention yesterday, was given 40mg lasix iv and patient was able to urinate through condom baker Take note condom cath not always securely in place so Is and Os are approximate as patient does wet bed Ordered- new condom catheter on 05/22/17 Flomax 0.4mg PEG daily Proscar 5mg PEG daily continue Bethanecol 50mg PEG TID- started after persistent retention and found to be effective. monitor I's and O's Check bladder scan for residual urine three times weekly Respiratory failure Assessment & Plan: Trach in place, continue daily monitoring for secretions. No change in management at this time. Continue with aggressive suctioning multiple times a day per respiratory therapist. Monitor for signs of respiratory distress Thick secretions Duoneb 3ml INH Q6 and Mucomyst 4ml INH Q6H Robitussin 100mg PEG Q12H Scopolamine 1 patch TD Q3D JOO Repeat CXR on 05/28/17: linear increased consolidative changes in the right mid- lung zone and left lung base which may represent atelectasis and/or infiltrate. Questionable trace left pleural effusion. moderate venous congestion. cardiomegaly. degenerative changes in the spine and shoulders Sacral ulcer Assessment & Plan: Healed Cont with offloading/cushioning/turning Continue frequent turning, protective ointment and skin checks. History of coronary artery disease Assessment & Plan: s/p cardiac stents on 06/13/15 Cont ASA 81mg via PEG daily Cont Coreg 3.125mg PEG BID Cont Plavix 75mg PO daily Seizures Assessment & Plan: Continue Keppra 500mg PEG BID for seizure prophylaxis Monitor for activity Lower extremity edema Assessment & Plan: Improved SCDs in place Pressure ulcer boots on b/l Continue to monitor Prophylactic measure Assessment & Plan: Pepcid 20 mg PEG BID Lovenox 40mg SC daily SCDs and offloading boots continue to turn and reposition q2hrs Feeds increased to 50cc/hr. Per technical research scientist (05/02/17): tube feed goal: Isosource 1.5 @ 50cc/h Will continue tube feeds @ 50 with goal of 60cc/h Continue to monitor medication administrations and clinical presentation weekly labs. vasoline ointment applied to feet prn to prevent hyperkeratosis Stop feeding from 10pm-6am, placed into nursing communication (06/16/17) Al Srivastava PGY1
[2017-07-05] MEDS: Saccharomyces Boulardi 250 mg Cap PEG SCH (10:38)
[2017-07-05] MEDS: levETIRAcetam 100 mg/ml (5ml) Oral Syringe PEG SCH ×2 (10:39→17:41)
[2017-07-05] MEDS: Enoxaparin 40 mg Syringe SC SCH (10:39)
[2017-07-06] MEDS: Albuterol-Ipratrop 3 mg / 0.5 (3 ml) UD INH SCH ×2 (01:34→08:10)
[2017-07-06 07:22] LABS: BASO % 0.5 % (0.0-2.0); EOS # 0.4 K/uL (0.0-0.7); EOS % 4.4 % (0.0-4.0); HEMOGLOBIN 11.6 g/dL (12.0-18.0); LYMPH # 2.2 K/uL (1.0-4.3); LYMPH % 26.9 % (20.0-40.0); MEAN CELL VOLUME 90.4 fL (80.0-94.0); MEAN CORPUSCULAR HEMOGLOBIN 29.4 pg (27.0-31.0); MEAN CORPUSCULAR HGB CONC 32.5 g/dL (33.0-37.0); MEAN PLATELET VOLUME 8.7 fL (7.2-11.7); MONO # 0.9 K/uL (0.0-0.8); MONO % 10.5 % (0.0-10.0); NEUT # 4.7 K/uL (1.8-7.0); NEUT % 57.7 % (50.0-75.0); RBC 3.95 Mil/uL (4.40-5.90); RED CELL DISTRIBUTION WIDTH 16.3 % (11.5-14.5); WHITE BLOOD COUNT 8.2 K/uL (4.8-10.8)
[2017-07-06 07:48] LABS: ALBUMIN 3.6 g/dL (3.5-5.0)
[2017-07-06 07:51] LABS: ALB/GLOB RATIO 0.8 (1.0-2.1); ALT/SGPT 77 U/L (21-72); AST/SGOT 36 U/L (17-59); BLOOD UREA NITROGEN 13 mg/dL (9-20); CALCIUM 9.1 mg/dl (8.6-10.4); GFR NON-AFRICAN AMERICAN > 60
[2017-07-06] MEDS: Enoxaparin 40 mg Syringe SC SCH (11:10)
[2017-07-06] MEDS: levETIRAcetam 100 mg/ml (5ml) Oral Syringe PEG SCH ×2 (11:10→17:54)
[2017-07-06] MEDS: Saccharomyces Boulardi 250 mg Cap PEG SCH (11:10)
--- NOTE | 2017-07-06 19:26 | CP.PCM.PN ---
<Al Srivastava - Last Filed: 07/06/17 19:24> Subjective - Date & Time of Evaluation Date of Evaluation: 07/06/17 Time of Evaluation: 07:00 - Subjective Subjective: PGY1 Medicine Note for Dr. Chavis Patient seen and examined overnight. 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 Objective - Vital Signs/Intake and Output Vital Signs (last 24 hours): Temp Pulse Resp BP Pulse Ox 97.8 F 71 18 129/87 100 07/06/17 16:00 07/06/17 16:00 07/06/17 16:00 07/06/17 16:00 07/06/17 16:00 Intake and Output: 07/06/17 07/07/17 18:59 06:59 Intake Total 1050 Output Total 600 Balance 450 - Medications Medications: Current Medications Aspirin (Aspirin Chewable) 81 mg PEG DAILY [facility] Last Admin: 07/06/17 11:10 Dose: 81 mg Bethanechol Chloride (Urecholine) 50 mg PEG TID [facility] Last Admin: 07/06/17 17:53 Dose: 50 mg Carvedilol (Coreg) 3.125 mg PEG BID [facility] Last Admin: 07/06/17 17:54 Dose: 3.125 mg Clopidogrel Bisulfate (Plavix) 75 mg PEG DAILY [facility] Last Admin: 07/06/17 11:10 Dose: 75 mg Emollient Ointment (Vaseline Oint) 5 gm TOP DAILY PRN PRN Reason: Dry skin Enoxaparin Sodium (Lovenox) 40 mg SC DAILY [facility] Last Admin: 07/06/17 11:10 Dose: 40 mg Famotidine (Pepcid) 20 mg PEG DAILY [facility] Last Admin: 07/06/17 11:10 Dose: 20 mg Finasteride (Proscar) 5 mg PEG DAILY [facility] Last Admin: 07/06/17 11:10 Dose: 5 mg Levetiracetam (Keppra) 500 mg PEG BID [facility] Last Admin: 07/06/17 17:54 Dose: 500 mg Saccharomyces Boulardii (Florastor) 250 mg PEG DAILY [facility] Last Admin: 07/06/17 11:10 Dose: 250 mg Scopolamine (Transderm-Scop) 1 patch TD Q3D [facility] Last Admin: 07/03/17 22:04 Dose: 1 patch Tamsulosin HCl (Flomax) 0.4 mg PEG DAILY [facility] Last Admin: 07/06/17 11:10 Dose: 0.4 mg - Labs Labs: 07/06/17 07:12 07/06/17 07:12 PT 10.6 SECONDS (9.7-12.2) 11/24/15 14:10 INR 1.0 11/24/15 14:10 APTT 25 SECONDS (21-34) 11/24/15 14:10 - Constitutional Appears: Non-toxic, No Acute Distress - Head Exam Head Exam: ATRAUMATIC, NORMOCEPHALIC - Respiratory Exam Respiratory Exam: Clear to Ausculation Bilateral, NORMAL BREATHING PATTERN. absent: Accessory Muscle Use, Wheezes, Respiratory Distress Additional comments: Trach in place, no abnormal growth in tubing. - Cardiovascular Exam Cardiovascular Exam: REGULAR RHYTHM, +S1, +S2 - GI/Abdominal Exam GI & Abdominal Exam: Soft, Normal Bowel Sounds. absent: Distended, Guarding, Rigid, Tenderness - Neurological Exam Neurological Exam: Altered (Patient is non-verbal from anoxic brain injury in 2014) - Skin Skin Exam: Dry, Normal Color, Warm Assessment and Plan - Assessment and Plan (Free Text) Plan: Anoxic encephalopathy Assessment & Plan: s/p cardiac arrest in 05/2015 no acute changes Pt has non spontaneous movements. continue current management. Continue tube feeds- at goal of 60, feedings held at night due to fluid overload Urinary tract infection Assessment & Plan: Resolved Patient afebrile WBC count stable as of 06/22/17 Tylenol 650mg po q6 PEG PRN UA and Urine Cx ordered on 05/28/17 showed gram negative rods --> Proteus Mirabilis was started Primaxin 500mg IV Q6 on 05/30/17-- DC Urinary retention Assessment & Plan: Unchanged 06/27/17: Continue bladder massages to aid in voiding. 06/25/17: Patient voids with movement. Continue bladder massages to aid in voiding. 06/23/17: Patient will need to have daily bladder massage to allow for complete voiding 06/17/17: Nursing communication placed in: straight catherization with bladder scan> 100ml 06/08: urinary retention yesterday, was given 40mg lasix iv and patient was able to urinate through condom baker Take note condom cath not always securely in place so Is and Os are approximate as patient does wet bed Ordered- new condom catheter on 05/22/17 Flomax 0.4mg PEG daily Proscar 5mg PEG daily continue Bethanecol 50mg PEG TID- started after persistent retention and found to be effective. monitor I's and O's Check bladder scan for residual urine three times weekly Respiratory failure Assessment & Plan: Trach in place, continue daily monitoring for secretions. No change in management at this time. Continue with aggressive suctioning multiple times a day per respiratory therapist. Monitor for signs of respiratory distress Thick secretions Duoneb 3ml INH Q6 and Mucomyst 4ml INH Q6H Robitussin 100mg PEG Q12H Scopolamine 1 patch TD Q3D [facility] Repeat CXR on 05/28/17: linear increased consolidative changes in the right mid- lung zone and left lung base which may represent atelectasis and/or infiltrate. Questionable trace left pleural effusion. moderate venous congestion. cardiomegaly. degenerative changes in the spine and shoulders Sacral ulcer Assessment & Plan: Healed Cont with offloading/cushioning/turning Continue frequent turning, protective ointment and skin checks. History of coronary artery disease Assessment & Plan: s/p cardiac stents on 06/13/15 Cont ASA 81mg via PEG daily Cont Coreg 3.125mg PEG BID Cont Plavix 75mg PO daily Seizures Assessment & Plan: Continue Keppra 500mg PEG BID for seizure prophylaxis Monitor for activity Lower extremity edema Assessment & Plan: Improved SCDs in place Pressure ulcer boots on b/l Continue to monitor Prophylactic measure Assessment & Plan: Pepcid 20 mg PEG BID Lovenox 40mg SC daily SCDs and offloading boots continue to turn and reposition q2hrs Feeds increased to 50cc/hr. Per silk screen operator (05/02/17): tube feed goal: Isosource 1.5 @ 50cc/h Will continue tube feeds @ 50 with goal of 60cc/h Continue to monitor medication administrations and clinical presentation weekly labs. vasoline ointment applied to feet prn to prevent hyperkeratosis Stop feeding from 10pm-6am, placed into nursing communication (06/16/17) Case discussed with Dr. Stepan Srivastava PGY1 <Donnell Ying - Last Filed: 07/07/17 15:02> Objective - Vital Signs/Intake and Output Vital Signs (last 24 hours): Temp Pulse Resp BP Pulse Ox 97.9 F 80 20 121/76 98 07/07/17 07:46 07/07/17 07:46 07/07/17 07:46 07/07/17 07:46 07/07/17 07:46 Intake and Output: 07/07/17 07/07/17 06:59 18:59 Intake Total 950 Output Total 1200 Balance -250 - Medications Medications: Current Medications Aspirin (Aspirin Chewable) 81 mg PEG DAILY [facility] Last Admin: 07/07/17 10:24 Dose: 81 mg Bethanechol Chloride (Urecholine) 50 mg PEG TID [facility] Last Admin: 07/07/17 14:06 Dose: 50 mg Carvedilol (Coreg) 3.125 mg PEG BID [facility] Last Admin: 07/07/17 10:24 Dose: 3.125 mg Clopidogrel Bisulfate (Plavix) 75 mg PEG DAILY [facility] Last Admin: 07/07/17 10:24 Dose: 75 mg Emollient Ointment (Vaseline Oint) 5 gm TOP DAILY PRN PRN Reason: Dry skin Enoxaparin Sodium (Lovenox) 40 mg SC DAILY [facility] Last Admin: 07/07/17 10:24 Dose: 40 mg Famotidine (Pepcid) 20 mg PEG DAILY [facility] Last Admin: 07/07/17 10:24 Dose: 20 mg Finasteride (Proscar) 5 mg PEG DAILY [facility] Last Admin: 07/07/17 10:24 Dose: 5 mg Levetiracetam (Keppra) 500 mg PEG BID [facility] Last Admin: 07/07/17 10:24 Dose: 500 mg Saccharomyces Boulardii (Florastor) 250 mg PEG DAILY [facility] Last Admin: 07/07/17 10:24 Dose: 250 mg Scopolamine (Transderm-Scop) 1 patch TD Q3D [facility] Last Admin: 07/03/17 22:04 Dose: 1 patch Tamsulosin HCl (Flomax) 0.4 mg PEG DAILY [facility] Last Admin: 07/07/17 10:24 Dose: 0.4 mg - Labs Labs: 07/06/17 07:12 07/06/17 07:12 PT 10.6 SECONDS (9.7-12.2) 11/24/15 14:10 INR 1.0 11/24/15 14:10 APTT 25 SECONDS (21-34) 11/24/15 14:10 Attending/Attestation - Attestation I have personally seen and examined this patient.: Yes I have fully participated in the care of the patient.: Yes I have reviewed all pertinent clinical information, including history, physical exam and plan: Yes Notes (Text): 07/07/17 15:02 Patient was seen and examined at bedside with the resident No change in clinical condition Continue current medical management I discussed the plan of care with the resident and agree with the history and physical and assessment/plan documented.
--- NOTE | 2017-07-07 07:34 | CP.PCM.PN ---
<Al Srivastava - Last Filed: 07/07/17 17:34> Subjective - Date & Time of Evaluation Date of Evaluation: 07/07/17 Time of Evaluation: 07:34 - Subjective Subjective: PGY1 Medicine Note for Dr. Ying Patient seen and examined overnight. 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 Objective - Vital Signs/Intake and Output Vital Signs (last 24 hours): Temp Pulse Resp BP Pulse Ox 98.6 F 71 20 117/72 100 07/07/17 01:00 07/07/17 01:00 07/07/17 01:00 07/07/17 01:00 07/07/17 01:00 Intake and Output: 07/07/17 07/07/17 06:59 18:59 Intake Total 350 Output Total 200 Balance 150 - Medications Medications: Current Medications Aspirin (Aspirin Chewable) 81 mg PEG DAILY [facility] Last Admin: 07/06/17 11:10 Dose: 81 mg Bethanechol Chloride (Urecholine) 50 mg PEG TID [facility] Last Admin: 07/06/17 17:53 Dose: 50 mg Carvedilol (Coreg) 3.125 mg PEG BID [facility] Last Admin: 07/06/17 17:54 Dose: 3.125 mg Clopidogrel Bisulfate (Plavix) 75 mg PEG DAILY [facility] Last Admin: 07/06/17 11:10 Dose: 75 mg Emollient Ointment (Vaseline Oint) 5 gm TOP DAILY PRN PRN Reason: Dry skin Enoxaparin Sodium (Lovenox) 40 mg SC DAILY [facility] Last Admin: 07/06/17 11:10 Dose: 40 mg Famotidine (Pepcid) 20 mg PEG DAILY [facility] Last Admin: 07/06/17 11:10 Dose: 20 mg Finasteride (Proscar) 5 mg PEG DAILY [facility] Last Admin: 07/06/17 11:10 Dose: 5 mg Levetiracetam (Keppra) 500 mg PEG BID [facility] Last Admin: 07/06/17 17:54 Dose: 500 mg Saccharomyces Boulardii (Florastor) 250 mg PEG DAILY [facility] Last Admin: 07/06/17 11:10 Dose: 250 mg Scopolamine (Transderm-Scop) 1 patch TD Q3D [facility] Last Admin: 07/03/17 22:04 Dose: 1 patch Tamsulosin HCl (Flomax) 0.4 mg PEG DAILY [facility] Last Admin: 07/06/17 11:10 Dose: 0.4 mg - Labs Labs: 07/06/17 07:12 07/06/17 07:12 PT 10.6 SECONDS (9.7-12.2) 11/24/15 14:10 INR 1.0 11/24/15 14:10 APTT 25 SECONDS (21-34) 11/24/15 14:10 - Constitutional Appears: Non-toxic, No Acute Distress - Head Exam Head Exam: ATRAUMATIC, NORMOCEPHALIC - ENT Exam ENT Exam: Mucous Membranes Moist - Respiratory Exam Respiratory Exam: Clear to Ausculation Bilateral, NORMAL BREATHING PATTERN Additional comments: Trach in place, no abnormal growth in tubing. - Cardiovascular Exam Cardiovascular Exam: REGULAR RHYTHM, +S1, +S2 - GI/Abdominal Exam GI & Abdominal Exam: Soft, Normal Bowel Sounds - Exam Additional comments: Patient was retaining urine even with bladder massages. Catheter was flushed and patient put out close to 500 mL within an hour after flush. - Neurological Exam Neurological Exam: Altered (Patient is non-verbal from anoxic brain injury in 2014) - Skin Skin Exam: Dry, Normal Color, Warm Assessment and Plan - Assessment and Plan (Free Text) Plan: Anoxic encephalopathy Assessment & Plan: s/p cardiac arrest in 05/2015 no acute changes Pt has non spontaneous movements. continue current management. Continue tube feeds- at goal of 60, feedings held at night due to fluid overload Urinary tract infection Assessment & Plan: Resolved Patient afebrile WBC count stable as of 06/22/17 Tylenol 650mg po q6 PEG PRN UA and Urine Cx ordered on 05/28/17 showed gram negative rods --> Proteus Mirabilis was started Primaxin 500mg IV Q6 on 05/30/17-- DC Urinary retention Assessment & Plan: Unchanged 07/07/17: Catheter flushed, patient output approx. 500mL within one hour post flush. 06/27/17: Continue bladder massages to aid in voiding. 06/25/17: Patient voids with movement. Continue bladder massages to aid in voiding. 06/23/17: Patient will need to have daily bladder massage to allow for complete voiding 06/17/17: Nursing communication placed in: straight catherization with bladder scan> 100ml 06/08: urinary retention yesterday, was given 40mg lasix iv and patient was able to urinate through condom baker Take note condom cath not always securely in place so Is and Os are approximate as patient does wet bed Ordered- new condom catheter on 05/22/17 Flomax 0.4mg PEG daily Proscar 5mg PEG daily continue Bethanecol 50mg PEG TID- started after persistent retention and found to be effective. monitor I's and O's Check bladder scan for residual urine three times weekly Respiratory failure Assessment & Plan: Trach in place, continue daily monitoring for secretions. No change in management at this time. Continue with aggressive suctioning multiple times a day per respiratory therapist. Monitor for signs of respiratory distress Thick secretions Duoneb 3ml INH Q6 and Mucomyst 4ml INH Q6H Robitussin 100mg PEG Q12H Scopolamine 1 patch TD Q3D [facility] Repeat CXR on 05/28/17: linear increased consolidative changes in the right mid- lung zone and left lung base which may represent atelectasis and/or infiltrate. Questionable trace left pleural effusion. moderate venous congestion. cardiomegaly. degenerative changes in the spine and shoulders Sacral ulcer Assessment & Plan: Healed Cont with offloading/cushioning/turning Continue frequent turning, protective ointment and skin checks. History of coronary artery disease Assessment & Plan: s/p cardiac stents on 06/13/15 Cont ASA 81mg via PEG daily Cont Coreg 3.125mg PEG BID Cont Plavix 75mg PO daily Seizures Assessment & Plan: Continue Keppra 500mg PEG BID for seizure prophylaxis Monitor for activity Lower extremity edema Assessment & Plan: Improved SCDs in place Pressure ulcer boots on b/l Continue to monitor Prophylactic measure Assessment & Plan: Pepcid 20 mg PEG BID Lovenox 40mg SC daily SCDs and offloading boots continue to turn and reposition q2hrs Feeds increased to 50cc/hr. Per stock shipper (05/02/17): tube feed goal: Isosource 1.5 @ 50cc/h Will continue tube feeds @ 50 with goal of 60cc/h Continue to monitor medication administrations and clinical presentation weekly labs. vasoline ointment applied to feet prn to prevent hyperkeratosis Stop feeding from 10pm-6am, placed into nursing communication (06/16/17) Case discussed with Dr. Stepan Melendez Carola PGY1 <Donnell Ying M - Last Filed: 07/07/17 18:03> Objective - Vital Signs/Intake and Output Vital Signs (last 24 hours): Temp Pulse Resp BP Pulse Ox 98.1 F 89 20 124/63 96 07/07/17 15:00 07/07/17 15:00 07/07/17 15:00 07/07/17 15:00 07/07/17 15:00 Intake and Output: 07/07/17 07/07/17 06:59 18:59 Intake Total 950 Output Total 1200 Balance -250 - Medications Medications: Current Medications Albuterol/Ipratropium (Duoneb 3 Mg/0.5 Mg (3 Ml) Ud) 3 ml INH RQ2 PRN PRN Reason: Shortness of Breath Aspirin (Aspirin Chewable) 81 mg PEG DAILY [facility] Last Admin: 07/07/17 10:24 Dose: 81 mg Bethanechol Chloride (Urecholine) 50 mg PEG TID [facility] Last Admin: 07/07/17 14:06 Dose: 50 mg Carvedilol (Coreg) 3.125 mg PEG BID [facility] Last Admin: 07/07/17 10:24 Dose: 3.125 mg Clopidogrel Bisulfate (Plavix) 75 mg PEG DAILY [facility] Last Admin: 07/07/17 10:24 Dose: 75 mg Emollient Ointment (Vaseline Oint) 5 gm TOP DAILY PRN PRN Reason: Dry skin Enoxaparin Sodium (Lovenox) 40 mg SC DAILY [facility] Last Admin: 07/07/17 10:24 Dose: 40 mg Famotidine (Pepcid) 20 mg PEG DAILY [facility] Last Admin: 07/07/17 10:24 Dose: 20 mg Finasteride (Proscar) 5 mg PEG DAILY [facility] Last Admin: 07/07/17 10:24 Dose: 5 mg Levetiracetam (Keppra) 500 mg PEG BID [facility] Last Admin: 07/07/17 10:24 Dose: 500 mg Saccharomyces Boulardii (Florastor) 250 mg PEG DAILY [facility] Last Admin: 07/07/17 10:24 Dose: 250 mg Scopolamine (Transderm-Scop) 1 patch TD Q3D [facility] Last Admin: 07/03/17 22:04 Dose: 1 patch Tamsulosin HCl (Flomax) 0.4 mg PEG DAILY [facility] Last Admin: 07/07/17 10:24 Dose: 0.4 mg - Labs Labs: 07/06/17 07:12 07/06/17 07:12 PT 10.6 SECONDS (9.7-12.2) 11/24/15 14:10 INR 1.0 11/24/15 14:10 APTT 25 SECONDS (21-34) 11/24/15 14:10 Attending/Attestation - Attestation I have personally seen and examined this patient.: Yes I have fully participated in the care of the patient.: Yes I have reviewed all pertinent clinical information, including history, physical exam and plan: Yes Notes (Text): 07/07/17 18:03 Patient was seen and examined at bedside with the resident There is no change in clinical condition Urine output noted Continue current management. Patient is awaiting placement.
[2017-07-07] MEDS: levETIRAcetam 100 mg/ml (5ml) Oral Syringe PEG SCH ×2 (10:24→19:00)
[2017-07-07] MEDS: Enoxaparin 40 mg Syringe SC SCH (10:24)
[2017-07-07] MEDS: Saccharomyces Boulardi 250 mg Cap PEG SCH (10:24)
--- NOTE | 2017-07-08 07:53 | CP.PCM.PN ---
<Al Srivastava - Last Filed: 07/08/17 16:18> Subjective - Date & Time of Evaluation Date of Evaluation: 07/08/17 Time of Evaluation: 07:53 - Subjective Subjective: PGY1 Medicine Note for Dr. Ying Patient seen and examined overnight. 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 Objective - Vital Signs/Intake and Output Vital Signs (last 24 hours): Temp Pulse Resp BP Pulse Ox 98.3 F 80 20 113/76 98 07/08/17 00:00 07/08/17 00:00 07/08/17 00:00 07/08/17 00:00 07/08/17 00:00 Intake and Output: 07/08/17 07/08/17 06:59 18:59 Intake Total 550 330 Output Total 200 200 Balance 350 130 - Medications Medications: Current Medications Albuterol/Ipratropium (Duoneb 3 Mg/0.5 Mg (3 Ml) Ud) 3 ml INH RQ2 PRN PRN Reason: Shortness of Breath Aspirin (Aspirin Chewable) 81 mg PEG DAILY [facility] Last Admin: 07/07/17 10:24 Dose: 81 mg Bethanechol Chloride (Urecholine) 50 mg PEG TID [facility] Last Admin: 07/07/17 19:00 Dose: 50 mg Carvedilol (Coreg) 3.125 mg PEG BID [facility] Last Admin: 07/07/17 19:01 Dose: 3.125 mg Clopidogrel Bisulfate (Plavix) 75 mg PEG DAILY [facility] Last Admin: 07/07/17 10:24 Dose: 75 mg Emollient Ointment (Vaseline Oint) 5 gm TOP DAILY PRN PRN Reason: Dry skin Enoxaparin Sodium (Lovenox) 40 mg SC DAILY [facility] Last Admin: 07/07/17 10:24 Dose: 40 mg Famotidine (Pepcid) 20 mg PEG DAILY [facility] Last Admin: 07/07/17 10:24 Dose: 20 mg Finasteride (Proscar) 5 mg PEG DAILY [facility] Last Admin: 07/07/17 10:24 Dose: 5 mg Levetiracetam (Keppra) 500 mg PEG BID [facility] Last Admin: 07/07/17 19:00 Dose: 500 mg Saccharomyces Boulardii (Florastor) 250 mg PEG DAILY [facility] Last Admin: 07/07/17 10:24 Dose: 250 mg Scopolamine (Transderm-Scop) 1 patch TD Q3D [facility] Last Admin: 07/07/17 23:59 Dose: 1 patch Tamsulosin HCl (Flomax) 0.4 mg PEG DAILY [facility] Last Admin: 07/07/17 10:24 Dose: 0.4 mg - Labs Labs: 07/06/17 07:12 07/06/17 07:12 PT 10.6 SECONDS (9.7-12.2) 11/24/15 14:10 INR 1.0 11/24/15 14:10 APTT 25 SECONDS (21-34) 11/24/15 14:10 - Constitutional Appears: Non-toxic, No Acute Distress - Head Exam Head Exam: ATRAUMATIC, NORMOCEPHALIC - ENT Exam ENT Exam: Mucous Membranes Moist - Respiratory Exam Respiratory Exam: Clear to Ausculation Bilateral, NORMAL BREATHING PATTERN Additional comments: Trach in place. No abnormal growths in tube. - Cardiovascular Exam Cardiovascular Exam: REGULAR RHYTHM, +S1, +S2 - GI/Abdominal Exam GI & Abdominal Exam: Soft, Normal Bowel Sounds. absent: Distended, Rigid, Tenderness - Exam Exam: absent: Bladder Distension Additional comments: Condom cath in place. draining clear, yellow urine. - Extremities Exam Extremities Exam: absent: Joint Swelling, Pedal Edema Additional comments: SCDs/pressure ulcer boots in place. - Neurological Exam Neurological Exam: Altered (Patient is non-verbal from anoxic brain injury in 2014) - Skin Skin Exam: Dry, Normal Color, Warm Assessment and Plan - Assessment and Plan (Free Text) Plan: Anoxic encephalopathy Assessment & Plan: s/p cardiac arrest in 05/2015 no acute changes Pt has non spontaneous movements. continue current management. Continue tube feeds- at goal of 60, feedings held at night due to fluid overload Urinary tract infection Assessment & Plan: Resolved Patient afebrile WBC count stable as of 06/22/17 Tylenol 650mg po q6 PEG PRN UA and Urine Cx ordered on 05/28/17 showed gram negative rods --> Proteus Mirabilis was started Primaxin 500mg IV Q6 on 05/30/17-- DC Urinary retention Assessment & Plan: Unchanged 07/07/17: Catheter flushed, patient output approx. 500mL within one hour post flush. 06/27/17: Continue bladder massages to aid in voiding. 06/25/17: Patient voids with movement. Continue bladder massages to aid in voiding. 06/23/17: Patient will need to have daily bladder massage to allow for complete voiding 06/17/17: Nursing communication placed in: straight catherization with bladder scan> 100ml 06/08: urinary retention yesterday, was given 40mg lasix iv and patient was able to urinate through condom baker Take note condom cath not always securely in place so Is and Os are approximate as patient does wet bed Ordered- new condom catheter on 05/22/17 Flomax 0.4mg PEG daily Proscar 5mg PEG daily continue Bethanecol 50mg PEG TID- started after persistent retention and found to be effective. monitor I's and O's Check bladder scan for residual urine three times weekly Respiratory failure Assessment & Plan: Trach in place, continue daily monitoring for secretions. No change in management at this time. Continue with aggressive suctioning multiple times a day per respiratory therapist. Monitor for signs of respiratory distress Thick secretions Duoneb 3ml INH Q6 and Mucomyst 4ml INH Q6H Robitussin 100mg PEG Q12H Scopolamine 1 patch TD Q3D JOO Repeat CXR on 05/28/17: linear increased consolidative changes in the right mid- lung zone and left lung base which may represent atelectasis and/or infiltrate. Questionable trace left pleural effusion. moderate venous congestion. cardiomegaly. degenerative changes in the spine and shoulders Sacral ulcer Assessment & Plan: Healed Cont with offloading/cushioning/turning Continue frequent turning, protective ointment and skin checks. History of coronary artery disease Assessment & Plan: s/p cardiac stents on 06/13/15 Cont ASA 81mg via PEG daily Cont Coreg 3.125mg PEG BID Cont Plavix 75mg PO daily Seizures Assessment & Plan: Continue Keppra 500mg PEG BID for seizure prophylaxis Monitor for activity Lower extremity edema Assessment & Plan: Improved SCDs in place Pressure ulcer boots on b/l Continue to monitor Prophylactic measure Assessment & Plan: Pepcid 20 mg PEG BID Lovenox 40mg SC daily SCDs and offloading boots continue to turn and reposition q2hrs Feeds increased to 50cc/hr. Per book coverer (05/02/17): tube feed goal: Isosource 1.5 @ 50cc/h Will continue tube feeds @ 50 with goal of 60cc/h Continue to monitor medication administrations and clinical presentation weekly labs. vasoline ointment applied to feet prn to prevent hyperkeratosis Stop feeding from 10pm-6am, placed into nursing communication (06/16/17) Case discussed with Dr. Stepan Srivastava PGY1 <Donnell Ying M - Last Filed: 07/08/17 16:49> Objective - Vital Signs/Intake and Output Vital Signs (last 24 hours): Temp Pulse Resp BP Pulse Ox 98.4 F 82 20 136/62 99 07/08/17 08:11 07/08/17 08:11 07/08/17 08:11 07/08/17 08:11 07/08/17 08:11 Intake and Output: 07/08/17 07/08/17 06:59 18:59 Intake Total 550 930 Output Total 200 1100 Balance 350 -170 - Medications Medications: Current Medications Albuterol/Ipratropium (Duoneb 3 Mg/0.5 Mg (3 Ml) Ud) 3 ml INH RQ2 PRN PRN Reason: Shortness of Breath Last Admin: 07/08/17 13:44 Dose: 3 ml Aspirin (Aspirin Chewable) 81 mg PEG DAILY [facility] Last Admin: 07/08/17 09:54 Dose: 81 mg Bethanechol Chloride (Urecholine) 50 mg PEG TID [facility] Last Admin: 07/08/17 13:44 Dose: 50 mg Carvedilol (Coreg) 3.125 mg PEG BID [facility] Last Admin: 07/08/17 09:54 Dose: 3.125 mg Clopidogrel Bisulfate (Plavix) 75 mg PEG DAILY [facility] Last Admin: 07/08/17 09:55 Dose: 75 mg Emollient Ointment (Vaseline Oint) 5 gm TOP DAILY PRN PRN Reason: Dry skin Enoxaparin Sodium (Lovenox) 40 mg SC DAILY [facility] Last Admin: 07/08/17 09:54 Dose: 40 mg Famotidine (Pepcid) 20 mg PEG DAILY [facility] Last Admin: 07/08/17 09:55 Dose: 20 mg Finasteride (Proscar) 5 mg PEG DAILY [facility] Last Admin: 07/08/17 09:55 Dose: 5 mg Levetiracetam (Keppra) 500 mg PEG BID [facility] Last Admin: 07/08/17 09:55 Dose: 500 mg Saccharomyces Boulardii (Florastor) 250 mg PEG DAILY [facility] Last Admin: 07/08/17 09:54 Dose: 250 mg Scopolamine (Transderm-Scop) 1 patch TD Q3D [facility] Last Admin: 07/07/17 23:59 Dose: 1 patch Tamsulosin HCl (Flomax) 0.4 mg PEG DAILY [facility] Last Admin: 07/08/17 09:54 Dose: 0.4 mg - Labs Labs: 07/06/17 07:12 07/06/17 07:12 PT 10.6 SECONDS (9.7-12.2) 11/24/15 14:10 INR 1.0 11/24/15 14:10 APTT 25 SECONDS (21-34) 11/24/15 14:10 Attending/Attestation - Attestation I have personally seen and examined this patient.: Yes I have fully participated in the care of the patient.: Yes I have reviewed all pertinent clinical information, including history, physical exam and plan: Yes Notes (Text): 07/08/17 16:48 Patient was seen and examined at bedside with the resident No change in clinical condition and continue current medical management Agree with the assessment and plan documented by the resident.
[2017-07-08] MEDS: Albuterol-Ipratrop 3 mg / 0.5 (3 ml) UD INH PRN ×4 (08:00→23:36)
[2017-07-08] MEDS: Saccharomyces Boulardi 250 mg Cap PEG SCH (09:54)
[2017-07-08] MEDS: Enoxaparin 40 mg Syringe SC SCH (09:54)
[2017-07-08] MEDS: levETIRAcetam 100 mg/ml (5ml) Oral Syringe PEG SCH ×2 (09:55→17:40)
[2017-07-09] MEDS: Albuterol-Ipratrop 3 mg / 0.5 (3 ml) UD INH PRN ×2 (07:46→12:57)
[2017-07-09] MEDS: Enoxaparin 40 mg Syringe SC SCH (11:00)
[2017-07-09] MEDS: levETIRAcetam 100 mg/ml (5ml) Oral Syringe PEG SCH ×2 (11:00→17:47)
[2017-07-09] MEDS: Saccharomyces Boulardi 250 mg Cap PEG SCH (11:00)
--- NOTE | 2017-07-09 14:14 | CP.PCM.PN ---
<Al Srivastava - Last Filed: 07/09/17 20:36> Subjective - Date & Time of Evaluation Date of Evaluation: 07/09/17 Time of Evaluation: 14:12 - Subjective Subjective: PGY1 Medicine Note for Dr. Ying Patient seen and examined overnight. 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 Objective - Vital Signs/Intake and Output Vital Signs (last 24 hours): Temp Pulse Resp BP Pulse Ox 98.4 F 62 20 114/73 99 07/09/17 07:08 07/09/17 07:08 07/09/17 07:08 07/09/17 07:08 07/09/17 07:08 Intake and Output: 07/09/17 07/09/17 06:59 18:59 Intake Total 800 Output Total 700 Balance 100 - Medications Medications: Current Medications Albuterol/Ipratropium (Duoneb 3 Mg/0.5 Mg (3 Ml) Ud) 3 ml INH RQ2 PRN PRN Reason: Shortness of Breath Last Admin: 07/09/17 12:57 Dose: 3 ml Aspirin (Aspirin Chewable) 81 mg PEG DAILY [facility] Last Admin: 07/09/17 11:00 Dose: 81 mg Bethanechol Chloride (Urecholine) 50 mg PEG TID [facility] Last Admin: 07/09/17 13:59 Dose: 50 mg Carvedilol (Coreg) 3.125 mg PEG BID [facility] Last Admin: 07/09/17 11:00 Dose: 3.125 mg Clopidogrel Bisulfate (Plavix) 75 mg PEG DAILY [facility] Last Admin: 07/09/17 11:00 Dose: 75 mg Emollient Ointment (Vaseline Oint) 5 gm TOP DAILY PRN PRN Reason: Dry skin Enoxaparin Sodium (Lovenox) 40 mg SC DAILY [facility] Last Admin: 07/09/17 11:00 Dose: 40 mg Famotidine (Pepcid) 20 mg PEG DAILY [facility] Last Admin: 07/09/17 11:00 Dose: 20 mg Finasteride (Proscar) 5 mg PEG DAILY [facility] Last Admin: 07/09/17 11:00 Dose: 5 mg Levetiracetam (Keppra) 500 mg PEG BID [facility] Last Admin: 07/09/17 11:00 Dose: 500 mg Saccharomyces Boulardii (Florastor) 250 mg PEG DAILY [facility] Last Admin: 07/09/17 11:00 Dose: 250 mg Scopolamine (Transderm-Scop) 1 patch TD Q3D [facility] Last Admin: 07/07/17 23:59 Dose: 1 patch Tamsulosin HCl (Flomax) 0.4 mg PEG DAILY [facility] Last Admin: 07/09/17 11:00 Dose: 0.4 mg - Labs Labs: 07/06/17 07:12 07/06/17 07:12 PT 10.6 SECONDS (9.7-12.2) 11/24/15 14:10 INR 1.0 11/24/15 14:10 APTT 25 SECONDS (21-34) 11/24/15 14:10 - Constitutional Appears: Non-toxic, No Acute Distress - Head Exam Head Exam: ATRAUMATIC, NORMOCEPHALIC - Eye Exam Eye Exam: EOMI - ENT Exam ENT Exam: Mucous Membranes Moist - Respiratory Exam Respiratory Exam: Clear to Ausculation Bilateral, NORMAL BREATHING PATTERN. absent: Accessory Muscle Use, Wheezes, Respiratory Distress Additional comments: Trach in place. No abnormal growths in tube. - Cardiovascular Exam Cardiovascular Exam: REGULAR RHYTHM, +S1, +S2 - GI/Abdominal Exam GI & Abdominal Exam: Soft, Normal Bowel Sounds. absent: Distended, Guarding, Rigid - Exam Exam: absent: Bladder Distension Additional comments: Condom cath in place. draining clear, yellow urine. - Extremities Exam Extremities Exam: absent: Joint Swelling, Pedal Edema Additional comments: SCDs/pressure ulcer boots in place. - Neurological Exam Neurological Exam: Altered (non verbal) - Skin Skin Exam: Dry, Normal Color, Warm Assessment and Plan - Assessment and Plan (Free Text) Plan: Anoxic encephalopathy Assessment & Plan: s/p cardiac arrest in 05/2015 no acute changes Pt has non spontaneous movements. continue current management. Continue tube feeds- at goal of 60, feedings held at night due to fluid overload Urinary tract infection Assessment & Plan: Resolved Patient afebrile WBC count stable as of 06/22/17 Tylenol 650mg po q6 PEG PRN UA and Urine Cx ordered on 05/28/17 showed gram negative rods --> Proteus Mirabilis was started Primaxin 500mg IV Q6 on 05/30/17-- DC Urinary retention Assessment & Plan: Improved 07/07/17: Catheter flushed, patient output approx. 500mL within one hour post flush. 06/27/17: Continue bladder massages to aid in voiding. 06/25/17: Patient voids with movement. Continue bladder massages to aid in voiding. 06/23/17: Patient will need to have daily bladder massage to allow for complete voiding 06/17/17: Nursing communication placed in: straight catherization with bladder scan> 100ml 06/08: urinary retention yesterday, was given 40mg lasix iv and patient was able to urinate through condom baker Take note condom cath not always securely in place so Is and Os are approximate as patient does wet bed Ordered- new condom catheter on 05/22/17 Flomax 0.4mg PEG daily Proscar 5mg PEG daily continue Bethanecol 50mg PEG TID- started after persistent retention and found to be effective. monitor I's and O's Check bladder scan for residual urine three times weekly Respiratory failure Assessment & Plan: Trach in place, continue daily monitoring for secretions. No change in management at this time. Continue with aggressive suctioning multiple times a day per respiratory therapist. Monitor for signs of respiratory distress Thick secretions Duoneb 3ml INH Q6 and Mucomyst 4ml INH Q6H Robitussin 100mg PEG Q12H Scopolamine 1 patch TD Q3D JOO Repeat CXR on 05/28/17: linear increased consolidative changes in the right mid- lung zone and left lung base which may represent atelectasis and/or infiltrate. Questionable trace left pleural effusion. moderate venous congestion. cardiomegaly. degenerative changes in the spine and shoulders Sacral ulcer Assessment & Plan: Healed Cont with offloading/cushioning/turning Continue frequent turning, protective ointment and skin checks. History of coronary artery disease Assessment & Plan: s/p cardiac stents on 06/13/15 Cont ASA 81mg via PEG daily Cont Coreg 3.125mg PEG BID Cont Plavix 75mg PO daily Seizures Assessment & Plan: Continue Keppra 500mg PEG BID for seizure prophylaxis Monitor for activity Lower extremity edema Assessment & Plan: Improved SCDs in place Pressure ulcer boots on b/l Continue to monitor Prophylactic measure Assessment & Plan: Pepcid 20 mg PEG BID Lovenox 40mg SC daily SCDs and offloading boots continue to turn and reposition q2hrs Feeds increased to 50cc/hr. Per regrinder operator (05/02/17): tube feed goal: Isosource 1.5 @ 50cc/h Will continue tube feeds @ 50 with goal of 60cc/h Continue to monitor medication administrations and clinical presentation weekly labs. vasoline ointment applied to feet prn to prevent hyperkeratosis Stop feeding from 10pm-6am, placed into nursing communication (06/16/17) Case discussed with Dr. Stepan Srivastava PGY1 <Donnell Ying - Last Filed: 07/10/17 16:31> Objective - Vital Signs/Intake and Output Vital Signs (last 24 hours): Temp Pulse Resp BP Pulse Ox 98.3 F 68 20 111/72 97 07/10/17 07:00 07/10/17 07:00 07/10/17 07:00 07/10/17 07:00 07/10/17 07:00 Intake and Output: 07/10/17 07/10/17 06:59 18:59 Intake Total 1700 600 Output Total 1000 450 Balance 700 150 - Medications Medications: Current Medications Albuterol/Ipratropium (Duoneb 3 Mg/0.5 Mg (3 Ml) Ud) 3 ml INH RQ2 PRN PRN Reason: Shortness of Breath Last Admin: 07/10/17 13:19 Dose: 3 ml Aspirin (Aspirin Chewable) 81 mg PEG DAILY [facility] Last Admin: 07/10/17 10:42 Dose: 81 mg Bethanechol Chloride (Urecholine) 50 mg PEG TID [facility] Last Admin: 07/10/17 14:45 Dose: 50 mg Carvedilol (Coreg) 3.125 mg PEG BID [facility] Last Admin: 07/10/17 10:42 Dose: 3.125 mg Clopidogrel Bisulfate (Plavix) 75 mg PEG DAILY [facility] Last Admin: 07/10/17 10:42 Dose: 75 mg Emollient Ointment (Vaseline Oint) 5 gm TOP DAILY PRN PRN Reason: Dry skin Enoxaparin Sodium (Lovenox) 40 mg SC DAILY [facility] Last Admin: 07/10/17 10:43 Dose: 40 mg Famotidine (Pepcid) 20 mg PEG DAILY [facility] Last Admin: 07/10/17 10:43 Dose: 20 mg Finasteride (Proscar) 5 mg PEG DAILY [facility] Last Admin: 07/10/17 10:42 Dose: 5 mg Levetiracetam (Keppra) 500 mg PEG BID [facility] Last Admin: 07/10/17 10:42 Dose: 500 mg Saccharomyces Boulardii (Florastor) 250 mg PEG DAILY [facility] Last Admin: 07/10/17 10:42 Dose: 250 mg Scopolamine (Transderm-Scop) 1 patch TD Q3D [facility] Last Admin: 07/07/17 23:59 Dose: 1 patch Tamsulosin HCl (Flomax) 0.4 mg PEG DAILY [facility] Last Admin: 07/10/17 10:42 Dose: 0.4 mg - Labs Labs: 07/06/17 07:12 07/06/17 07:12 PT 10.6 SECONDS (9.7-12.2) 11/24/15 14:10 INR 1.0 11/24/15 14:10 APTT 25 SECONDS (21-34) 11/24/15 14:10 Attending/Attestation - Attestation I have personally seen and examined this patient.: Yes I have fully participated in the care of the patient.: Yes I have reviewed all pertinent clinical information, including history, physical exam and plan: Yes Notes (Text): 07/10/17 16:30 Patient was seen and examined at bedside with the resident Continue current medical management Discussed plan of care with the resident and agree with the assessment and plan documented.
[2017-07-10] MEDS: Albuterol-Ipratrop 3 mg / 0.5 (3 ml) UD INH PRN ×3 (07:48→19:31)
[2017-07-10] MEDS: levETIRAcetam 100 mg/ml (5ml) Oral Syringe PEG SCH ×2 (10:42→18:10)
[2017-07-10] MEDS: Saccharomyces Boulardi 250 mg Cap PEG SCH (10:42)
[2017-07-10] MEDS: Enoxaparin 40 mg Syringe SC SCH (10:43)
--- NOTE | 2017-07-10 21:18 | CP.PCM.PN ---
<Al Srivastava - Last Filed: 07/10/17 21:16> Subjective - Date & Time of Evaluation Date of Evaluation: 07/10/17 Time of Evaluation: 06:00 - Subjective Subjective: PGY1 Medicine Note for Dr. Ying Patient seen and examined overnight. 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 Objective - Vital Signs/Intake and Output Vital Signs (last 24 hours): Temp Pulse Resp BP Pulse Ox 98.9 F 92 H 20 96/66 L 100 07/10/17 15:00 07/10/17 15:00 07/10/17 15:00 07/10/17 15:00 07/10/17 15:00 Intake and Output: 07/10/17 07/11/17 18:59 06:59 Intake Total 600 Output Total 450 Balance 150 - Medications Medications: Current Medications Albuterol/Ipratropium (Duoneb 3 Mg/0.5 Mg (3 Ml) Ud) 3 ml INH RQ2 PRN PRN Reason: Shortness of Breath Last Admin: 07/10/17 19:31 Dose: 3 ml Aspirin (Aspirin Chewable) 81 mg PEG DAILY [facility] Last Admin: 07/10/17 10:42 Dose: 81 mg Bethanechol Chloride (Urecholine) 50 mg PEG TID [facility] Last Admin: 07/10/17 18:10 Dose: 50 mg Carvedilol (Coreg) 3.125 mg PEG BID [facility] Last Admin: 07/10/17 18:10 Dose: 3.125 mg Clopidogrel Bisulfate (Plavix) 75 mg PEG DAILY [facility] Last Admin: 07/10/17 10:42 Dose: 75 mg Emollient Ointment (Vaseline Oint) 5 gm TOP DAILY PRN PRN Reason: Dry skin Enoxaparin Sodium (Lovenox) 40 mg SC DAILY [facility] Last Admin: 07/10/17 10:43 Dose: 40 mg Famotidine (Pepcid) 20 mg PEG DAILY [facility] Last Admin: 07/10/17 10:43 Dose: 20 mg Finasteride (Proscar) 5 mg PEG DAILY [facility] Last Admin: 07/10/17 10:42 Dose: 5 mg Levetiracetam (Keppra) 500 mg PEG BID [facility] Last Admin: 07/10/17 18:10 Dose: 500 mg Saccharomyces Boulardii (Florastor) 250 mg PEG DAILY [facility] Last Admin: 07/10/17 10:42 Dose: 250 mg Scopolamine (Transderm-Scop) 1 patch TD Q3D [facility] Last Admin: 07/10/17 21:03 Dose: 1 patch Tamsulosin HCl (Flomax) 0.4 mg PEG DAILY [facility] Last Admin: 07/10/17 10:42 Dose: 0.4 mg - Labs Labs: 07/06/17 07:12 07/06/17 07:12 PT 10.6 SECONDS (9.7-12.2) 11/24/15 14:10 INR 1.0 11/24/15 14:10 APTT 25 SECONDS (21-34) 11/24/15 14:10 - Constitutional Appears: Non-toxic, No Acute Distress - Head Exam Head Exam: ATRAUMATIC, NORMOCEPHALIC - Eye Exam Eye Exam: EOMI, Normal appearance - ENT Exam ENT Exam: Mucous Membranes Moist - Respiratory Exam Respiratory Exam: Clear to Ausculation Bilateral, NORMAL BREATHING PATTERN. absent: Accessory Muscle Use, Respiratory Distress Additional comments: Trach in place. no growths in tube. - Cardiovascular Exam Cardiovascular Exam: REGULAR RHYTHM, +S1, +S2 - GI/Abdominal Exam GI & Abdominal Exam: Soft, Normal Bowel Sounds. absent: Distended, Firm, Guarding, Rigid, Tenderness - Exam Exam: absent: Bladder Distension - Extremities Exam Extremities Exam: absent: Calf Tenderness, Pedal Edema Additional comments: SCDs/pressure ulcer boots in place. - Neurological Exam Neurological Exam: Altered (non-verbal) - Skin Skin Exam: Dry, Intact, Normal Color, Warm Assessment and Plan - Assessment and Plan (Free Text) Plan: No update. Anoxic encephalopathy Assessment & Plan: s/p cardiac arrest in 05/2015 no acute changes Pt has non spontaneous movements. continue current management. Continue tube feeds- at goal of 60, feedings held at night due to fluid overload Urinary tract infection Assessment & Plan: Resolved Patient afebrile WBC count stable as of 06/22/17 Tylenol 650mg po q6 PEG PRN UA and Urine Cx ordered on 05/28/17 showed gram negative rods --> Proteus Mirabilis was started Primaxin 500mg IV Q6 on 05/30/17-- DC Urinary retention Assessment & Plan: Improved 07/07/17: Catheter flushed, patient output approx. 500mL within one hour post flush. 06/27/17: Continue bladder massages to aid in voiding. 06/25/17: Patient voids with movement. Continue bladder massages to aid in voiding. 06/23/17: Patient will need to have daily bladder massage to allow for complete voiding 06/17/17: Nursing communication placed in: straight catherization with bladder scan> 100ml 06/08: urinary retention yesterday, was given 40mg lasix iv and patient was able to urinate through condom baker Take note condom cath not always securely in place so Is and Os are approximate as patient does wet bed Ordered- new condom catheter on 05/22/17 Flomax 0.4mg PEG daily Proscar 5mg PEG daily continue Bethanecol 50mg PEG TID- started after persistent retention and found to be effective. monitor I's and O's Check bladder scan for residual urine three times weekly Respiratory failure Assessment & Plan: Trach in place, continue daily monitoring for secretions. No change in management at this time. Continue with aggressive suctioning multiple times a day per respiratory therapist. Monitor for signs of respiratory distress Thick secretions Duoneb 3ml INH Q6 and Mucomyst 4ml INH Q6H Robitussin 100mg PEG Q12H Scopolamine 1 patch TD Q3D JOO Repeat CXR on 05/28/17: linear increased consolidative changes in the right mid- lung zone and left lung base which may represent atelectasis and/or infiltrate. Questionable trace left pleural effusion. moderate venous congestion. cardiomegaly. degenerative changes in the spine and shoulders Sacral ulcer Assessment & Plan: Healed Cont with offloading/cushioning/turning Continue frequent turning, protective ointment and skin checks. History of coronary artery disease Assessment & Plan: s/p cardiac stents on 06/13/15 Cont ASA 81mg via PEG daily Cont Coreg 3.125mg PEG BID Cont Plavix 75mg PO daily Seizures Assessment & Plan: Continue Keppra 500mg PEG BID for seizure prophylaxis Monitor for activity Lower extremity edema Assessment & Plan: Improved SCDs in place Pressure ulcer boots on b/l Continue to monitor Prophylactic measure Assessment & Plan: Pepcid 20 mg PEG BID Lovenox 40mg SC daily SCDs and offloading boots continue to turn and reposition q2hrs Feeds increased to 50cc/hr. Per health informatics instructor (05/02/17): tube feed goal: Isosource 1.5 @ 50cc/h Will continue tube feeds @ 50 with goal of 60cc/h Continue to monitor medication administrations and clinical presentation weekly labs. vasoline ointment applied to feet prn to prevent hyperkeratosis Stop feeding from 10pm-6am, placed into nursing communication (06/16/17) Case discussed with Dr. Stepan Srivastava PGY1 <Donnell Ying - Last Filed: 07/11/17 10:07> Objective - Vital Signs/Intake and Output Vital Signs (last 24 hours): Temp Pulse Resp BP Pulse Ox 98.4 F 79 20 118/74 100 07/11/17 07:28 07/11/17 07:28 07/11/17 07:28 07/11/17 07:28 07/11/17 07:28 Intake and Output: 07/11/17 07/11/17 06:59 18:59 Intake Total 550 Output Total 600 Balance -50 - Medications Medications: Current Medications Albuterol/Ipratropium (Duoneb 3 Mg/0.5 Mg (3 Ml) Ud) 3 ml INH RQ2 PRN PRN Reason: Shortness of Breath Last Admin: 07/10/17 19:31 Dose: 3 ml Aspirin (Aspirin Chewable) 81 mg PEG DAILY [facility] Last Admin: 07/11/17 09:10 Dose: 81 mg Bethanechol Chloride (Urecholine) 50 mg PEG TID [facility] Last Admin: 07/11/17 09:10 Dose: 50 mg Carvedilol (Coreg) 3.125 mg PEG BID [facility] Last Admin: 07/11/17 09:16 Dose: Not Given Clopidogrel Bisulfate (Plavix) 75 mg PEG DAILY [facility] Last Admin: 07/11/17 09:09 Dose: 75 mg Emollient Ointment (Vaseline Oint) 5 gm TOP DAILY PRN PRN Reason: Dry skin Enoxaparin Sodium (Lovenox) 40 mg SC DAILY [facility] Last Admin: 07/11/17 09:10 Dose: 40 mg Famotidine (Pepcid) 20 mg PEG DAILY [facility] Last Admin: 07/11/17 09:10 Dose: 20 mg Finasteride (Proscar) 5 mg PEG DAILY [facility] Last Admin: 07/11/17 09:09 Dose: 5 mg Levetiracetam (Keppra) 500 mg PEG BID [facility] Last Admin: 07/11/17 09:09 Dose: 500 mg Saccharomyces Boulardii (Florastor) 250 mg PEG DAILY [facility] Last Admin: 07/11/17 09:09 Dose: 250 mg Scopolamine (Transderm-Scop) 1 patch TD Q3D [facility] Last Admin: 07/10/17 21:03 Dose: 1 patch Tamsulosin HCl (Flomax) 0.4 mg PEG DAILY [facility] Last Admin: 07/11/17 09:10 Dose: 0.4 mg - Labs Labs: 07/06/17 07:12 07/06/17 07:12 PT 10.6 SECONDS (9.7-12.2) 11/24/15 14:10 INR 1.0 11/24/15 14:10 APTT 25 SECONDS (21-34) 11/24/15 14:10 Attending/Attestation - Attestation I have personally seen and examined this patient.: Yes I have fully participated in the care of the patient.: Yes I have reviewed all pertinent clinical information, including history, physical exam and plan: Yes Notes (Text): 07/11/17 10:07 Patient was seen and examined at bedside No new complaints Continue current medical management Discussed the plan of care with the resident agree with the assessment plan documented.
--- NOTE | 2017-07-11 01:08 | CP.PCM.PN ---
<Tanya Campos - Last Filed: 07/11/17 01:06> Subjective - Date & Time of Evaluation Date of Evaluation: 07/11/17 Time of Evaluation: 00:00 - Subjective Subjective: Medicine Note for Dr. Ying, Patient was seen and examined at bedside. ROS unattainable due to patient's anoxic brain injury (05/2015). Objective - Vital Signs/Intake and Output Vital Signs (last 24 hours): Temp Pulse Resp BP Pulse Ox 98.9 F 92 H 20 96/66 L 100 07/10/17 15:00 07/10/17 15:00 07/10/17 15:00 07/10/17 15:00 07/10/17 15:00 Intake and Output: 07/10/17 07/11/17 18:59 06:59 Intake Total 600 550 Output Total 450 600 Balance 150 -50 - Medications Medications: Current Medications Albuterol/Ipratropium (Duoneb 3 Mg/0.5 Mg (3 Ml) Ud) 3 ml INH RQ2 PRN PRN Reason: Shortness of Breath Last Admin: 07/10/17 19:31 Dose: 3 ml Aspirin (Aspirin Chewable) 81 mg PEG DAILY [facility] Last Admin: 07/10/17 10:42 Dose: 81 mg Bethanechol Chloride (Urecholine) 50 mg PEG TID [facility] Last Admin: 07/10/17 18:10 Dose: 50 mg Carvedilol (Coreg) 3.125 mg PEG BID [facility] Last Admin: 07/10/17 18:10 Dose: 3.125 mg Clopidogrel Bisulfate (Plavix) 75 mg PEG DAILY [facility] Last Admin: 07/10/17 10:42 Dose: 75 mg Emollient Ointment (Vaseline Oint) 5 gm TOP DAILY PRN PRN Reason: Dry skin Enoxaparin Sodium (Lovenox) 40 mg SC DAILY [facility] Last Admin: 07/10/17 10:43 Dose: 40 mg Famotidine (Pepcid) 20 mg PEG DAILY [facility] Last Admin: 07/10/17 10:43 Dose: 20 mg Finasteride (Proscar) 5 mg PEG DAILY [facility] Last Admin: 07/10/17 10:42 Dose: 5 mg Levetiracetam (Keppra) 500 mg PEG BID [facility] Last Admin: 07/10/17 18:10 Dose: 500 mg Saccharomyces Boulardii (Florastor) 250 mg PEG DAILY [facility] Last Admin: 07/10/17 10:42 Dose: 250 mg Scopolamine (Transderm-Scop) 1 patch TD Q3D [facility] Last Admin: 07/10/17 21:03 Dose: 1 patch Tamsulosin HCl (Flomax) 0.4 mg PEG DAILY [facility] Last Admin: 07/10/17 10:42 Dose: 0.4 mg - Labs Labs: 07/06/17 07:12 07/06/17 07:12 PT 10.6 SECONDS (9.7-12.2) 11/24/15 14:10 INR 1.0 11/24/15 14:10 APTT 25 SECONDS (21-34) 11/24/15 14:10 - Constitutional Appears: No Acute Distress - Head Exam Head Exam: NORMAL INSPECTION, NORMOCEPHALIC - Eye Exam Eye Exam: EOMI, Normal appearance, PERRL Pupil Exam: NORMAL ACCOMODATION - ENT Exam ENT Exam: Mucous Membranes Moist - Neck Exam Additional comments: Trach in place, without abnormal secretion - Respiratory Exam Respiratory Exam: Clear to Ausculation Bilateral, NORMAL BREATHING PATTERN. absent: Decreased Breath Sounds, Wheezes - Cardiovascular Exam Cardiovascular Exam: REGULAR RHYTHM, RRR - GI/Abdominal Exam GI & Abdominal Exam: Soft, Normal Bowel Sounds. absent: Distended - Extremities Exam Extremities Exam: Normal Inspection Additional comments: SCD in place Pressure Ulcer protective boots in place - Neurological Exam Neurological Exam: Alert, Awake - Psychiatric Exam Psychiatric exam: Normal Affect, Normal Mood - Skin Skin Exam: Dry, Intact, Normal Color, Warm Assessment and Plan - Assessment and Plan (Free Text) Plan: Anoxic encephalopathy Assessment & Plan: s/p cardiac arrest in 05/2015 no acute changes Pt has non spontaneous movements. continue current management. Continue tube feeds- at goal of 60, feedings held at night due to fluid overload Urinary tract infection Assessment & Plan: Resolved Patient afebrile WBC count stable as of 06/22/17 Tylenol 650mg po q6 PEG PRN UA and Urine Cx ordered on 05/28/17 showed gram negative rods --> Proteus Mirabilis was started Primaxin 500mg IV Q6 on 05/30/17-- DC Urinary retention Assessment & Plan: Improved 07/07/17: Catheter flushed, patient output approx. 500mL within one hour post flush. 06/27/17: Continue bladder massages to aid in voiding. 06/25/17: Patient voids with movement. Continue bladder massages to aid in voiding. 06/23/17: Patient will need to have daily bladder massage to allow for complete voiding 06/17/17: Nursing communication placed in: straight catherization with bladder scan> 100ml 06/08: urinary retention yesterday, was given 40mg lasix iv and patient was able to urinate through condom baker Take note condom cath not always securely in place so Is and Os are approximate as patient does wet bed Ordered- new condom catheter on 05/22/17 Flomax 0.4mg PEG daily Proscar 5mg PEG daily continue Bethanecol 50mg PEG TID- started after persistent retention and found to be effective. monitor I's and O's Check bladder scan for residual urine three times weekly Respiratory failure Assessment & Plan: Trach in place, continue daily monitoring for secretions. No change in management at this time. Continue with aggressive suctioning multiple times a day per respiratory therapist. Monitor for signs of respiratory distress Thick secretions Duoneb 3ml INH Q6 and Mucomyst 4ml INH Q6H Robitussin 100mg PEG Q12H Scopolamine 1 patch TD Q3D JOO Repeat CXR on 05/28/17: linear increased consolidative changes in the right mid- lung zone and left lung base which may represent atelectasis and/or infiltrate. Questionable trace left pleural effusion. moderate venous congestion. cardiomegaly. degenerative changes in the spine and shoulders Sacral ulcer Assessment & Plan: Healed Cont with offloading/cushioning/turning Continue frequent turning, protective ointment and skin checks. History of coronary artery disease Assessment & Plan: s/p cardiac stents on 06/13/15 Cont ASA 81mg via PEG daily Cont Coreg 3.125mg PEG BID Cont Plavix 75mg PO daily Seizures Assessment & Plan: Continue Keppra 500mg PEG BID for seizure prophylaxis Monitor for activity Lower extremity edema Assessment & Plan: Improved SCDs in place Pressure ulcer boots on b/l Continue to monitor Prophylactic measure Assessment & Plan: Pepcid 20 mg PEG BID Lovenox 40mg SC daily SCDs and offloading boots continue to turn and reposition q2hrs Feeds increased to 50cc/hr. 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 vasoline ointment applied to feet prn to prevent hyperkeratosis Stop feeding from 10pm-6am, placed into nursing communication (06/16/17) Beth Robin Dr., DO, PGY-1 <Donnell Ying - Last Filed: 07/11/17 16:12> Objective - Vital Signs/Intake and Output Vital Signs (last 24 hours): Temp Pulse Resp BP Pulse Ox 98.4 F 79 20 118/74 100 07/11/17 07:28 07/11/17 07:28 07/11/17 07:28 07/11/17 07:28 07/11/17 07:28 Intake and Output: 07/11/17 07/11/17 06:59 18:59 Intake Total 550 600 Output Total 600 800 Balance -50 -200 - Medications Medications: Current Medications Albuterol/Ipratropium (Duoneb 3 Mg/0.5 Mg (3 Ml) Ud) 3 ml INH RQ2 PRN PRN Reason: Shortness of Breath Last Admin: 07/11/17 13:14 Dose: 3 ml Aspirin (Aspirin Chewable) 81 mg PEG DAILY [facility] Last Admin: 07/11/17 09:10 Dose: 81 mg Bethanechol Chloride (Urecholine) 50 mg PEG TID [facility] Last Admin: 07/11/17 13:12 Dose: 50 mg Carvedilol (Coreg) 3.125 mg PEG BID [facility] Last Admin: 07/11/17 09:16 Dose: Not Given Clopidogrel Bisulfate (Plavix) 75 mg PEG DAILY [facility] Last Admin: 07/11/17 09:09 Dose: 75 mg Emollient Ointment (Vaseline Oint) 5 gm TOP DAILY PRN PRN Reason: Dry skin Enoxaparin Sodium (Lovenox) 40 mg SC DAILY [facility] Last Admin: 07/11/17 09:10 Dose: 40 mg Famotidine (Pepcid) 20 mg PEG DAILY [facility] Last Admin: 07/11/17 09:10 Dose: 20 mg Finasteride (Proscar) 5 mg PEG DAILY [facility] Last Admin: 07/11/17 09:09 Dose: 5 mg Levetiracetam (Keppra) 500 mg PEG BID [facility] 234 [facility] Last Admin: 07/11/17 09:09 Dose: 500 mg Saccharomyces Boulardii (Florastor) 250 mg PEG DAILY [facility] 234 [facility] Last Admin: 07/11/17 09:09 Dose: 250 mg Scopolamine (Transderm-Scop) 1 patch TD Q3D [facility] 234 [facility] Last Admin: 07/10/17 21:03 Dose: 1 patch Tamsulosin HCl (Flomax) 0.4 mg PEG DAILY [facility] Last Admin: 07/11/17 09:10 Dose: 0.4 mg - Labs Labs: 07/06/17 07:12 07/06/17 07:12 PT 10.6 SECONDS (9.7-12.2) 11/24/15 14:10 INR 1.0 11/24/15 14:10 APTT 25 SECONDS (21-34) 11/24/15 14:10 Attending/Attestation - Attestation I have personally seen and examined this patient.: Yes I have fully participated in the care of the patient.: Yes I have reviewed all pertinent clinical information, including history, physical exam and plan: Yes Notes (Text): 07/11/17 16:11 Patient was seen and examined at bedside Continue current medical management I agree with the assessment and plan documented by the resident.
[2017-07-11] MEDS: Albuterol-Ipratrop 3 mg / 0.5 (3 ml) UD INH PRN ×3 (08:13→20:17)
[2017-07-11] MEDS: Saccharomyces Boulardi 250 mg Cap PEG SCH (09:09)
[2017-07-11] MEDS: levETIRAcetam 100 mg/ml (5ml) Oral Syringe PEG SCH ×2 (09:09→18:00)
[2017-07-11] MEDS: Enoxaparin 40 mg Syringe SC SCH (09:10)
--- NOTE | 2017-07-12 01:33 | CP.PCM.PN ---
<Tanya Campos - Last Filed: 07/12/17 01:30> Subjective - Date & Time of Evaluation Date of Evaluation: 07/12/17 Time of Evaluation: 01:00 - Subjective Subjective: Medicine Note for Dr. Ying, Patient was seen and examined at bedside. ROS unattainable due to patient's anoxic brain injury (05/2015). Objective - Vital Signs/Intake and Output Vital Signs (last 24 hours): Temp Pulse Resp BP Pulse Ox 98.2 F 68 18 98/56 L 97 07/11/17 15:00 07/11/17 15:00 07/11/17 15:00 07/11/17 15:00 07/11/17 15:00 Intake and Output: 07/11/17 07/12/17 18:59 06:59 Intake Total 600 730 Output Total 800 700 Balance -200 30 - Medications Medications: Current Medications Albuterol/Ipratropium (Duoneb 3 Mg/0.5 Mg (3 Ml) Ud) 3 ml INH RQ2 PRN PRN Reason: Shortness of Breath Last Admin: 07/11/17 20:17 Dose: 3 ml Aspirin (Aspirin Chewable) 81 mg PEG DAILY [facility] Last Admin: 07/11/17 09:10 Dose: 81 mg Bethanechol Chloride (Urecholine) 50 mg PEG TID [facility] Last Admin: 07/11/17 18:00 Dose: 50 mg Carvedilol (Coreg) 3.125 mg PEG BID [facility] Last Admin: 07/11/17 18:06 Dose: Not Given Clopidogrel Bisulfate (Plavix) 75 mg PEG DAILY [facility] Last Admin: 07/11/17 09:09 Dose: 75 mg Emollient Ointment (Vaseline Oint) 5 gm TOP DAILY PRN PRN Reason: Dry skin Enoxaparin Sodium (Lovenox) 40 mg SC DAILY [facility] Last Admin: 07/11/17 09:10 Dose: 40 mg Famotidine (Pepcid) 20 mg PEG DAILY [facility] Last Admin: 07/11/17 09:10 Dose: 20 mg Finasteride (Proscar) 5 mg PEG DAILY [facility] Last Admin: 07/11/17 09:09 Dose: 5 mg Levetiracetam (Keppra) 500 mg PEG BID [facility] Last Admin: 07/11/17 18:00 Dose: 500 mg Saccharomyces Boulardii (Florastor) 250 mg PEG DAILY [facility] Last Admin: 07/11/17 09:09 Dose: 250 mg Scopolamine (Transderm-Scop) 1 patch TD Q3D [facility] Last Admin: 07/10/17 21:03 Dose: 1 patch Tamsulosin HCl (Flomax) 0.4 mg PEG DAILY [facility] Last Admin: 07/11/17 09:10 Dose: 0.4 mg - Labs Labs: 07/06/17 07:12 07/06/17 07:12 PT 10.6 SECONDS (9.7-12.2) 11/24/15 14:10 INR 1.0 11/24/15 14:10 APTT 25 SECONDS (21-34) 11/24/15 14:10 - Constitutional Appears: No Acute Distress - Head Exam Head Exam: NORMAL INSPECTION, NORMOCEPHALIC - Eye Exam Eye Exam: EOMI, Normal appearance, PERRL - ENT Exam ENT Exam: Mucous Membranes Moist Additional comments: Trach in place, without abnormal secretion - Respiratory Exam Respiratory Exam: Clear to Ausculation Bilateral, NORMAL BREATHING PATTERN - Cardiovascular Exam Cardiovascular Exam: REGULAR RHYTHM, RRR - GI/Abdominal Exam GI & Abdominal Exam: Soft, Normal Bowel Sounds. absent: Distended, Tenderness - Extremities Exam Extremities Exam: Normal Inspection, Tenderness. absent: Pedal Edema Additional comments: SCD in place Pressure Ulcer protective boots in place - Neurological Exam Neurological Exam: Alert, Awake, Oriented x3 - Skin Skin Exam: Dry, Normal Color, Warm Assessment and Plan - Assessment and Plan (Free Text) Plan: Febrile Assessment & Plan: Temp 100.9 Tylenol ordered Blood and urine cultures and CXR ordered Anoxic encephalopathy Assessment & Plan: s/p cardiac arrest in 05/2015 no acute changes Pt has non spontaneous movements. continue current management. Continue tube feeds- at goal of 60, feedings held at night due to fluid overload Urinary tract infection Assessment & Plan: Resolved Patient afebrile WBC count stable as of 06/22/17 Tylenol 650mg po q6 PEG PRN UA and Urine Cx ordered on 05/28/17 showed gram negative rods --> Proteus Mirabilis was started Primaxin 500mg IV Q6 on 05/30/17-- DC Urinary retention Assessment & Plan: Improved 07/07/17: Catheter flushed, patient output approx. 500mL within one hour post flush. 06/27/17: Continue bladder massages to aid in voiding. 06/25/17: Patient voids with movement. Continue bladder massages to aid in voiding. 06/23/17: Patient will need to have daily bladder massage to allow for complete voiding 06/17/17: Nursing communication placed in: straight catherization with bladder scan> 100ml 06/08: urinary retention yesterday, was given 40mg lasix iv and patient was able to urinate through condom baker Take note condom cath not always securely in place so Is and Os are approximate as patient does wet bed Ordered- new condom catheter on 05/22/17 Flomax 0.4mg PEG daily Proscar 5mg PEG daily continue Bethanecol 50mg PEG TID- started after persistent retention and found to be effective. monitor I's and O's Check bladder scan for residual urine three times weekly Respiratory failure Assessment & Plan: Trach in place, continue daily monitoring for secretions. No change in management at this time. Continue with aggressive suctioning multiple times a day per respiratory therapist. Monitor for signs of respiratory distress Thick secretions Duoneb 3ml INH Q6 and Mucomyst 4ml INH Q6H Robitussin 100mg PEG Q12H Scopolamine 1 patch TD Q3D JOO Repeat CXR on 05/28/17: linear increased consolidative changes in the right mid- lung zone and left lung base which may represent atelectasis and/or infiltrate. Questionable trace left pleural effusion. moderate venous congestion. cardiomegaly. degenerative changes in the spine and shoulders Sacral ulcer Assessment & Plan: Healed Cont with offloading/cushioning/turning Continue frequent turning, protective ointment and skin checks. History of coronary artery disease Assessment & Plan: s/p cardiac stents on 06/13/15 Cont ASA 81mg via PEG daily Cont Coreg 3.125mg PEG BID Cont Plavix 75mg PO daily Seizures Assessment & Plan: Continue Keppra 500mg PEG BID for seizure prophylaxis Monitor for activity Lower extremity edema Assessment & Plan: Improved SCDs in place Pressure ulcer boots on b/l Continue to monitor Prophylactic measure Assessment & Plan: Pepcid 20 mg PEG BID Lovenox 40mg SC daily SCDs and offloading boots continue to turn and reposition q2hrs Feeds increased to 50cc/hr. Per refrigerator tester (05/02/17): tube feed goal: Isosource 1.5 @ 50cc/h Will continue tube feeds @ 50 with goal of 60cc/h Continue to monitor medication administrations and clinical presentation weekly labs. vasoline ointment applied to feet prn to prevent hyperkeratosis Stop feeding from 10pm-6am, placed into nursing communication (06/16/17) DW Beth Ruiz DO, PGY-1 <Donnell Ying M - Last Filed: 07/12/17 15:36> Objective - Vital Signs/Intake and Output Vital Signs (last 24 hours): Temp Pulse Resp BP Pulse Ox 98.4 F 70 23 113/76 98 07/12/17 08:00 07/12/17 08:00 07/12/17 08:00 07/12/17 08:00 07/12/17 08:00 Intake and Output: 07/12/17 07/12/17 06:59 18:59 Intake Total 1250 600 Output Total 1300 800 Balance -50 -200 - Medications Medications: Current Medications Albuterol/Ipratropium (Duoneb 3 Mg/0.5 Mg (3 Ml) Ud) 3 ml INH RQ2 PRN PRN Reason: Shortness of Breath Last Admin: 07/12/17 08:15 Dose: 3 ml Aspirin (Aspirin Chewable) 81 mg PEG DAILY [facility] Last Admin: 07/12/17 11:49 Dose: 81 mg Bethanechol Chloride (Urecholine) 50 mg PEG TID [facility] Last Admin: 07/12/17 13:45 Dose: 50 mg Carvedilol (Coreg) 3.125 mg PEG BID [facility] Last Admin: 07/12/17 11:52 Dose: 3.125 mg Clopidogrel Bisulfate (Plavix) 75 mg PEG DAILY [facility] Last Admin: 07/12/17 11:50 Dose: 75 mg Emollient Ointment (Vaseline Oint) 5 gm TOP DAILY PRN PRN Reason: Dry skin Enoxaparin Sodium (Lovenox) 40 mg SC DAILY [facility] Last Admin: 07/12/17 11:51 Dose: 40 mg Famotidine (Pepcid) 20 mg PEG DAILY [facility] Last Admin: 07/12/17 11:50 Dose: 20 mg Finasteride (Proscar) 5 mg PEG DAILY [facility] Last Admin: 07/12/17 11:49 Dose: 5 mg Levetiracetam (Keppra) 500 mg PEG BID [facility] Last Admin: 07/12/17 11:49 Dose: 500 mg Saccharomyces Boulardii (Florastor) 250 mg PEG DAILY [facility] Last Admin: 07/12/17 11:49 Dose: 250 mg Scopolamine (Transderm-Scop) 1 patch TD Q3D [facility] Last Admin: 07/10/17 21:03 Dose: 1 patch Tamsulosin HCl (Flomax) 0.4 mg PEG DAILY [facility] Last Admin: 07/12/17 11:49 Dose: 0.4 mg - Labs Labs: 07/06/17 07:12 07/06/17 07:12 PT 10.6 SECONDS (9.7-12.2) 11/24/15 14:10 INR 1.0 11/24/15 14:10 APTT 25 SECONDS (21-34) 11/24/15 14:10 Attending/Attestation - Attestation I have personally seen and examined this patient.: Yes I have fully participated in the care of the patient.: Yes I have reviewed all pertinent clinical information, including history, physical exam and plan: Yes Notes (Text): 07/12/17 15:32 Patient was seen and examined at bedside with the resident patient had a fever last night. Chest x-ray was done and, blood cultures and urine cultures were sent. Chest x-ray report reviewed No consolidation noted Follow-up urine culture and blood culture Follow-up CBC in the morning also Patient does not have any further episode of fever I discussed with the nursing staff and agree with the assessment and documented by the resident.
[2017-07-12] MEDS: Albuterol-Ipratrop 3 mg / 0.5 (3 ml) UD INH PRN ×2 (08:15→20:15)
--- NOTE | 2017-07-12 09:48 | RAD ---
HISTORY: febrile COMPARISON: Chest x-ray performed 06/08/17 TECHNIQUE: Chest, one view. FINDINGS: Tracheostomy tube. LUNGS: Linear atelectasis, right midlung zone. Discoid atelectasis, left lung base. PLEURA: No significant pleural effusion identified. No definite pneumothorax . CARDIOVASCULAR: Cardiomegaly. OSSEOUS STRUCTURES: Osseous demineralization. Degenerative changes. VISUALIZED UPPER ABDOMEN: Unremarkable. OTHER FINDINGS: None. IMPRESSION: Tracheostomy tube. Linear atelectasis, right midlung zone. Discoid atelectasis, left lung base.
[2017-07-12] MEDS: Saccharomyces Boulardi 250 mg Cap PEG SCH (11:49)
[2017-07-12] MEDS: levETIRAcetam 100 mg/ml (5ml) Oral Syringe PEG SCH ×2 (11:49→18:00)
[2017-07-12] MEDS: Enoxaparin 40 mg Syringe SC SCH (11:51)
[2017-07-13] MEDS: Albuterol-Ipratrop 3 mg / 0.5 (3 ml) UD INH PRN ×3 (07:55→20:43)
[2017-07-13 08:19] LABS: BASO % 0.4 % (0.0-2.0); EOS # 0.4 K/uL (0.0-0.7); EOS % 3.4 % (0.0-4.0); HEMOGLOBIN 11.2 g/dL (12.0-18.0); LYMPH # 1.9 K/uL (1.0-4.3); LYMPH % 17.8 % (20.0-40.0); MEAN CELL VOLUME 90.3 fL (80.0-94.0); MEAN CORPUSCULAR HEMOGLOBIN 28.8 pg (27.0-31.0); MEAN CORPUSCULAR HGB CONC 31.9 g/dL (33.0-37.0); MEAN PLATELET VOLUME 9.2 fL (7.2-11.7); MONO % 9.8 % (0.0-10.0); NEUT # 7.2 K/uL (1.8-7.0); NEUT % 68.6 % (50.0-75.0); RBC 3.89 Mil/uL (4.40-5.90); RED CELL DISTRIBUTION WIDTH 15.6 % (11.5-14.5); WHITE BLOOD COUNT 10.6 K/uL (4.8-10.8)
[2017-07-13 08:41] LABS: ALBUMIN 3.3 g/dL (3.5-5.0)
[2017-07-13 08:44] LABS: GFR NON-AFRICAN AMERICAN > 60
[2017-07-13 08:45] LABS: ALT/SGPT 55 U/L (21-72); AST/SGOT 18 U/L (17-59); BLOOD UREA NITROGEN 9 mg/dL (9-20); CALCIUM 8.4 mg/dl (8.6-10.4)
[2017-07-13 08:46] LABS: ALB/GLOB RATIO 0.8 (1.0-2.1)
[2017-07-13] MEDS: Enoxaparin 40 mg Syringe SC SCH (12:06)
[2017-07-13] MEDS: Saccharomyces Boulardi 250 mg Cap PEG SCH (12:07)
[2017-07-13] MEDS: levETIRAcetam 100 mg/ml (5ml) Oral Syringe PEG SCH ×2 (12:09→18:10)
--- NOTE | 2017-07-13 13:28 | CP.PCM.PN ---
<Al Srivastava - Last Filed: 07/13/17 14:32> Subjective - Date & Time of Evaluation Date of Evaluation: 07/13/17 Time of Evaluation: 07:00 - Subjective Subjective: PGY1 Medicine Note for Dr. Chavis Patient was seen and examined at bedside. ROS unattainable due to patient's anoxic brain injury (05/2015). Objective - Vital Signs/Intake and Output Vital Signs (last 24 hours): Temp Pulse Resp BP Pulse Ox 98 F 78 20 111/74 95 07/13/17 09:25 07/13/17 09:25 07/13/17 09:25 07/13/17 09:25 07/13/17 09:25 Intake and Output: 07/13/17 07/13/17 06:59 18:59 Intake Total 800 Output Total 400 Balance 400 - Medications Medications: Current Medications Albuterol/Ipratropium (Duoneb 3 Mg/0.5 Mg (3 Ml) Ud) 3 ml INH RQ6 PRN PRN Reason: Shortness of Breath Aspirin (Aspirin Chewable) 81 mg PEG DAILY [facility] Last Admin: 07/13/17 12:07 Dose: 81 mg Bethanechol Chloride (Urecholine) 50 mg PEG TID [facility] Last Admin: 07/13/17 12:09 Dose: 50 mg Carvedilol (Coreg) 3.125 mg PEG BID [facility] Last Admin: 07/13/17 12:19 Dose: 3.125 mg Clopidogrel Bisulfate (Plavix) 75 mg PEG DAILY [facility] Last Admin: 07/13/17 12:08 Dose: 75 mg Emollient Ointment (Vaseline Oint) 5 gm TOP DAILY PRN PRN Reason: Dry skin Enoxaparin Sodium (Lovenox) 40 mg SC DAILY [facility] Last Admin: 07/13/17 12:06 Dose: 40 mg Famotidine (Pepcid) 20 mg PEG DAILY [facility] Last Admin: 07/13/17 12:08 Dose: 20 mg Finasteride (Proscar) 5 mg PEG DAILY [facility] Last Admin: 07/13/17 12:08 Dose: 5 mg Levetiracetam (Keppra) 500 mg PEG BID [facility] Last Admin: 07/13/17 12:09 Dose: 500 mg Saccharomyces Boulardii (Florastor) 250 mg PEG DAILY [facility] Last Admin: 07/13/17 12:07 Dose: 250 mg Scopolamine (Transderm-Scop) 1 patch TD Q3D [facility] Last Admin: 07/10/17 21:03 Dose: 1 patch Tamsulosin HCl (Flomax) 0.4 mg PEG DAILY [facility] Last Admin: 07/13/17 12:08 Dose: 0.4 mg - Labs Labs: 07/13/17 08:04 07/13/17 08:04 PT 10.6 SECONDS (9.7-12.2) 11/24/15 14:10 INR 1.0 11/24/15 14:10 APTT 25 SECONDS (21-34) 11/24/15 14:10 - Constitutional Appears: Non-toxic, No Acute Distress - Head Exam Head Exam: ATRAUMATIC, NORMOCEPHALIC - ENT Exam ENT Exam: Mucous Membranes Moist - Respiratory Exam Respiratory Exam: Clear to Ausculation Bilateral, NORMAL BREATHING PATTERN. absent: Accessory Muscle Use, Rales, Wheezes, Respiratory Distress Additional comments: Trach in place, CXR from weekend showed no acute disease. - Cardiovascular Exam Cardiovascular Exam: REGULAR RHYTHM, +S1, +S2 - GI/Abdominal Exam GI & Abdominal Exam: Soft, Normal Bowel Sounds. absent: Distended, Guarding, Tenderness - Extremities Exam Extremities Exam: absent: Calf Tenderness, Pedal Edema Additional comments: SCDs and pressure ulcer boots in place. - Neurological Exam Neurological Exam: Altered (anoxic brain injury 05/2015) - Skin Skin Exam: Dry, Normal Color, Warm Assessment and Plan - Assessment and Plan (Free Text) Plan: Febrile Assessment & Plan: Temp 100.9 Tylenol ordered Blood no growth at 24 hours Urine cultures gram positive rods CXR no acute disease Anoxic encephalopathy Assessment & Plan: s/p cardiac arrest in 05/2015 no acute changes Pt has non spontaneous movements. continue current management. Continue tube feeds- at goal of 60, feedings held at night due to fluid overload Urinary tract infection Assessment & Plan: Resolved Patient afebrile WBC count stable as of 06/22/17 Tylenol 650mg po q6 PEG PRN UA and Urine Cx ordered on 05/28/17 showed gram negative rods --> Proteus Mirabilis was started Primaxin 500mg IV Q6 on 05/30/17-- DC Urinary retention Assessment & Plan: Improved 07/07/17: Catheter flushed, patient output approx. 500mL within one hour post flush. 06/27/17: Continue bladder massages to aid in voiding. 06/25/17: Patient voids with movement. Continue bladder massages to aid in voiding. 06/23/17: Patient will need to have daily bladder massage to allow for complete voiding 06/17/17: Nursing communication placed in: straight catherization with bladder scan> 100ml 06/08: urinary retention yesterday, was given 40mg lasix iv and patient was able to urinate through condom baker Take note condom cath not always securely in place so Is and Os are approximate as patient does wet bed Ordered- new condom catheter on 05/22/17 Flomax 0.4mg PEG daily Proscar 5mg PEG daily continue Bethanecol 50mg PEG TID- started after persistent retention and found to be effective. monitor I's and O's Check bladder scan for residual urine three times weekly Respiratory failure Assessment & Plan: Trach in place, continue daily monitoring for secretions. No change in management at this time. Continue with aggressive suctioning multiple times a day per respiratory therapist. Monitor for signs of respiratory distress Thick secretions Duoneb 3ml INH Q6 and Mucomyst 4ml INH Q6H Robitussin 100mg PEG Q12H Scopolamine 1 patch TD Q3D JOO Repeat CXR on 05/28/17: linear increased consolidative changes in the right mid- lung zone and left lung base which may represent atelectasis and/or infiltrate. Questionable trace left pleural effusion. moderate venous congestion. cardiomegaly. degenerative changes in the spine and shoulders Sacral ulcer Assessment & Plan: Healed Cont with offloading/cushioning/turning Continue frequent turning, protective ointment and skin checks. History of coronary artery disease Assessment & Plan: s/p cardiac stents on 06/13/15 Cont ASA 81mg via PEG daily Cont Coreg 3.125mg PEG BID Cont Plavix 75mg PO daily Seizures Assessment & Plan: Continue Keppra 500mg PEG BID for seizure prophylaxis Monitor for activity Lower extremity edema Assessment & Plan: Improved SCDs in place Pressure ulcer boots on b/l Continue to monitor Prophylactic measure Assessment & Plan: Pepcid 20 mg PEG BID Lovenox 40mg SC daily SCDs and offloading boots continue to turn and reposition q2hrs Feeds increased to 50cc/hr. Per director process engineering (05/02/17): tube feed goal: Isosource 1.5 @ 50cc/h Will continue tube feeds @ 50 with goal of 60cc/h Continue to monitor medication administrations and clinical presentation weekly labs. vasoline ointment applied to feet prn to prevent hyperkeratosis Stop feeding from 10pm-6am, placed into nursing communication (06/16/17) Case discussed with Dr. Palmira Melendez Carola PGY1 <Amandeep Chavis H - Last Filed: 07/13/17 15:22> Objective - Vital Signs/Intake and Output Vital Signs (last 24 hours): Temp Pulse Resp BP Pulse Ox 98 F 78 20 111/74 95 07/13/17 09:25 07/13/17 09:25 07/13/17 09:25 07/13/17 09:25 07/13/17 09:25 Intake and Output: 07/13/17 07/13/17 06:59 18:59 Intake Total 800 Output Total 400 Balance 400 - Medications Medications: Current Medications Albuterol/Ipratropium (Duoneb 3 Mg/0.5 Mg (3 Ml) Ud) 3 ml INH RQ6 PRN PRN Reason: Shortness of Breath Aspirin (Aspirin Chewable) 81 mg PEG DAILY [facility] Last Admin: 07/13/17 12:07 Dose: 81 mg Bethanechol Chloride (Urecholine) 50 mg PEG TID [facility] Last Admin: 07/13/17 12:09 Dose: 50 mg Carvedilol (Coreg) 3.125 mg PEG BID [facility] Last Admin: 07/13/17 12:19 Dose: 3.125 mg Clopidogrel Bisulfate (Plavix) 75 mg PEG DAILY [facility] Last Admin: 07/13/17 12:08 Dose: 75 mg Emollient Ointment (Vaseline Oint) 5 gm TOP DAILY PRN PRN Reason: Dry skin Enoxaparin Sodium (Lovenox) 40 mg SC DAILY [facility] Last Admin: 07/13/17 12:06 Dose: 40 mg Famotidine (Pepcid) 20 mg PEG DAILY [facility] Last Admin: 07/13/17 12:08 Dose: 20 mg Finasteride (Proscar) 5 mg PEG DAILY [facility] Last Admin: 07/13/17 12:08 Dose: 5 mg Levetiracetam (Keppra) 500 mg PEG BID [facility] Last Admin: 07/13/17 12:09 Dose: 500 mg Saccharomyces Boulardii (Florastor) 250 mg PEG DAILY [facility] Last Admin: 07/13/17 12:07 Dose: 250 mg Scopolamine (Transderm-Scop) 1 patch TD Q3D [facility] Last Admin: 07/10/17 21:03 Dose: 1 patch Tamsulosin HCl (Flomax) 0.4 mg PEG DAILY [facility] Last Admin: 07/13/17 12:08 Dose: 0.4 mg - Labs Labs: 07/13/17 08:04 07/13/17 08:04 PT 10.6 SECONDS (9.7-12.2) 11/24/15 14:10 INR 1.0 11/24/15 14:10 APTT 25 SECONDS (21-34) 11/24/15 14:10 Assessment and Plan (1) Prophylactic measure Status: Acute (2) Anoxic encephalopathy Status: Chronic (3) STEMI (ST elevation myocardial infarction) Status: Acute (4) Cardiac arrest Status: Acute (5) Seizures Status: Acute (6) Respiratory failure Status: Chronic
--- NOTE | 2017-07-14 07:37 | CP.PCM.PN ---
<Al Srivastava - Last Filed: 07/14/17 16:31> Subjective - Date & Time of Evaluation Date of Evaluation: 07/14/17 Time of Evaluation: 07:34 - Subjective Subjective: PGY1 Medicine Note for Dr. Chavis Patient was seen and examined at bedside. ROS unattainable due to patient's anoxic brain injury (05/2015). Objective - Vital Signs/Intake and Output Vital Signs (last 24 hours): Temp Pulse Resp BP Pulse Ox 98.7 F 80 20 121/77 98 07/14/17 07:25 07/14/17 07:25 07/14/17 07:25 07/14/17 07:25 07/14/17 07:25 Intake and Output: 07/14/17 07/14/17 06:59 18:59 Intake Total 250 Balance 250 - Medications Medications: Current Medications Albuterol/Ipratropium (Duoneb 3 Mg/0.5 Mg (3 Ml) Ud) 3 ml INH RQ6 PRN PRN Reason: Shortness of Breath Last Admin: 07/13/17 20:43 Dose: 3 ml Aspirin (Aspirin Chewable) 81 mg PEG DAILY [facility] Last Admin: 07/13/17 12:07 Dose: 81 mg Bethanechol Chloride (Urecholine) 50 mg PEG TID [facility] Last Admin: 07/13/17 18:10 Dose: 50 mg Carvedilol (Coreg) 3.125 mg PEG BID [facility] Last Admin: 07/13/17 18:10 Dose: 3.125 mg Clopidogrel Bisulfate (Plavix) 75 mg PEG DAILY [facility] Last Admin: 07/13/17 12:08 Dose: 75 mg Emollient Ointment (Vaseline Oint) 5 gm TOP DAILY PRN PRN Reason: Dry skin Enoxaparin Sodium (Lovenox) 40 mg SC DAILY [facility] Last Admin: 07/13/17 12:06 Dose: 40 mg Famotidine (Pepcid) 20 mg PEG DAILY [facility] Last Admin: 07/13/17 12:08 Dose: 20 mg Finasteride (Proscar) 5 mg PEG DAILY [facility] Last Admin: 07/13/17 12:08 Dose: 5 mg Levetiracetam (Keppra) 500 mg PEG BID [facility] Last Admin: 07/13/17 18:10 Dose: 500 mg Saccharomyces Boulardii (Florastor) 250 mg PEG DAILY [facility] Last Admin: 07/13/17 12:07 Dose: 250 mg Scopolamine (Transderm-Scop) 1 patch TD Q3D [facility] Last Admin: 07/13/17 20:09 Dose: 1 patch Tamsulosin HCl (Flomax) 0.4 mg PEG DAILY [facility] Last Admin: 07/13/17 12:08 Dose: 0.4 mg - Labs Labs: 07/13/17 08:04 07/13/17 08:04 PT 10.6 SECONDS (9.7-12.2) 11/24/15 14:10 INR 1.0 11/24/15 14:10 APTT 25 SECONDS (21-34) 11/24/15 14:10 - Constitutional Appears: Non-toxic, No Acute Distress - Head Exam Head Exam: ATRAUMATIC, NORMOCEPHALIC - ENT Exam ENT Exam: Mucous Membranes Moist Additional comments: Trach in place. No growths in tubing. - Respiratory Exam Respiratory Exam: Clear to Ausculation Bilateral, NORMAL BREATHING PATTERN. absent: Accessory Muscle Use, Rales, Wheezes, Respiratory Distress - Cardiovascular Exam Cardiovascular Exam: REGULAR RHYTHM, +S1, +S2 - GI/Abdominal Exam GI & Abdominal Exam: Soft, Normal Bowel Sounds. absent: Distended, Guarding, Rigid, Tenderness - Extremities Exam Additional comments: SCDs and pressure ulcer boots in place. - Neurological Exam Neurological Exam: Altered (anoxic brain injury 05/2015) - Skin Skin Exam: Dry, Normal Color, Warm Assessment and Plan - Assessment and Plan (Free Text) Plan: Febrile Assessment & Plan: Temp 100.9 on 07/12 Tylenol ordered Blood cultures growing gram negative rods. Urine cultures gram positive rods. Started on Rocephin 1gm IV daily CXR no acute disease Anoxic encephalopathy Assessment & Plan: s/p cardiac arrest in 05/2015 no acute changes Pt has non spontaneous movements. continue current management. Continue tube feeds- at goal of 60, feedings held at night due to fluid overload Urinary tract infection Assessment & Plan: Resolved Patient afebrile WBC count stable as of 06/22/17 Tylenol 650mg po q6 PEG PRN UA and Urine Cx ordered on 05/28/17 showed gram negative rods --> Proteus Mirabilis was started Primaxin 500mg IV Q6 on 05/30/17-- DC Urinary retention Assessment & Plan: Improved 07/07/17: Catheter flushed, patient output approx. 500mL within one hour post flush. 06/27/17: Continue bladder massages to aid in voiding. 06/25/17: Patient voids with movement. Continue bladder massages to aid in voiding. 06/23/17: Patient will need to have daily bladder massage to allow for complete voiding 06/17/17: Nursing communication placed in: straight catherization with bladder scan> 100ml 06/08: urinary retention yesterday, was given 40mg lasix iv and patient was able to urinate through condom baker Take note condom cath not always securely in place so Is and Os are approximate as patient does wet bed Ordered- new condom catheter on 05/22/17 Flomax 0.4mg PEG daily Proscar 5mg PEG daily continue Bethanecol 50mg PEG TID- started after persistent retention and found to be effective. monitor I's and O's Check bladder scan for residual urine three times weekly Respiratory failure Assessment & Plan: Trach in place, continue daily monitoring for secretions. No change in management at this time. Continue with aggressive suctioning multiple times a day per respiratory therapist. Monitor for signs of respiratory distress Thick secretions Duoneb 3ml INH Q6 and Mucomyst 4ml INH Q6H Robitussin 100mg PEG Q12H Scopolamine 1 patch TD Q3D JOO Repeat CXR on 05/28/17: linear increased consolidative changes in the right mid- lung zone and left lung base which may represent atelectasis and/or infiltrate. Questionable trace left pleural effusion. moderate venous congestion. cardiomegaly. degenerative changes in the spine and shoulders Sacral ulcer Assessment & Plan: Healed Cont with offloading/cushioning/turning Continue frequent turning, protective ointment and skin checks. History of coronary artery disease Assessment & Plan: s/p cardiac stents on 06/13/15 Cont ASA 81mg via PEG daily Cont Coreg 3.125mg PEG BID Cont Plavix 75mg PO daily Seizures Assessment & Plan: Continue Keppra 500mg PEG BID for seizure prophylaxis Monitor for activity Lower extremity edema Assessment & Plan: Improved SCDs in place Pressure ulcer boots on b/l Continue to monitor Prophylactic measure Assessment & Plan: Pepcid 20 mg PEG BID Lovenox 40mg SC daily SCDs and offloading boots continue to turn and reposition q2hrs Feeds increased to 50cc/hr. Per pesticide applicator (05/02/17): tube feed goal: Isosource 1.5 @ 50cc/h Will continue tube feeds @ 50 with goal of 60cc/h Continue to monitor medication administrations and clinical presentation weekly labs. vasoline ointment applied to feet prn to prevent hyperkeratosis Stop feeding from 10pm-6am, placed into nursing communication (06/16/17) Case discussed with Dr. Palmira Melendez Carola PGY1 <Amandeep Chavis H - Last Filed: 07/14/17 16:46> Objective - Vital Signs/Intake and Output Vital Signs (last 24 hours): Temp Pulse Resp BP Pulse Ox 98.1 F 60 20 131/85 98 07/14/17 15:47 07/14/17 15:47 07/14/17 15:47 07/14/17 15:47 07/14/17 15:47 Intake and Output: 07/14/17 07/14/17 06:59 18:59 Intake Total 250 600 Balance 250 600 - Medications Medications: Current Medications Albuterol/Ipratropium (Duoneb 3 Mg/0.5 Mg (3 Ml) Ud) 3 ml INH RQ6 PRN PRN Reason: Shortness of Breath Last Admin: 07/14/17 14:19 Dose: 3 ml Aspirin (Aspirin Chewable) 81 mg PEG DAILY [facility] Last Admin: 07/14/17 09:06 Dose: 81 mg Bethanechol Chloride (Urecholine) 50 mg PEG TID [facility] Last Admin: 07/14/17 13:07 Dose: 50 mg Carvedilol (Coreg) 3.125 mg PEG BID [facility] Last Admin: 07/14/17 09:07 Dose: 3.125 mg Clopidogrel Bisulfate (Plavix) 75 mg PEG DAILY [facility] Last Admin: 07/14/17 09:06 Dose: 75 mg Emollient Ointment (Vaseline Oint) 5 gm TOP DAILY PRN PRN Reason: Dry skin Enoxaparin Sodium (Lovenox) 40 mg SC DAILY [facility] Last Admin: 07/14/17 09:06 Dose: 40 mg Famotidine (Pepcid) 20 mg PEG DAILY [facility] Last Admin: 07/14/17 09:06 Dose: 20 mg Finasteride (Proscar) 5 mg PEG DAILY [facility] Last Admin: 07/14/17 09:07 Dose: 5 mg Ceftriaxone Sodium 1 gm/ (Sodium Chloride) 100 mls @ 100 mls/hr IVPB DAILY [facility] Levetiracetam (Keppra) 500 mg PEG BID [facility] Last Admin: 07/14/17 09:07 Dose: 500 mg Saccharomyces Boulardii (Florastor) 250 mg PEG DAILY [facility] Last Admin: 07/14/17 09:07 Dose: 250 mg Scopolamine (Transderm-Scop) 1 patch TD Q3D [facility] Last Admin: 07/13/17 20:09 Dose: 1 patch Tamsulosin HCl (Flomax) 0.4 mg PEG DAILY [facility] Last Admin: 07/14/17 09:06 Dose: 0.4 mg - Labs Labs: 07/13/17 08:04 07/13/17 08:04 PT 10.6 SECONDS (9.7-12.2) 11/24/15 14:10 INR 1.0 11/24/15 14:10 APTT 25 SECONDS (21-34) 11/24/15 14:10 Assessment and Plan (1) Prophylactic measure Status: Acute (2) Anoxic encephalopathy Status: Chronic (3) STEMI (ST elevation myocardial infarction) Status: Acute (4) Cardiac arrest Status: Acute (5) Seizures Status: Acute (6) Respiratory failure Status: Chronic Attending/Attestation - Attestation I have personally seen and examined this patient.: Yes I have fully participated in the care of the patient.: Yes I have reviewed all pertinent clinical information, including history, physical exam and plan: Yes Notes (Text): Medical attending: Patient was seen by me, agrees the above note by medical staff director. We reviewed some of the recent lab work there was a culture done showing that there is some type of preliminary growth of blood in the urine. For now will add on Rocephin IV to be given Thank you very much, Amandeep Chavis
[2017-07-14] MEDS: Albuterol-Ipratrop 3 mg / 0.5 (3 ml) UD INH PRN ×3 (08:07→20:52)
[2017-07-14] MEDS: Enoxaparin 40 mg Syringe SC SCH (09:06)
[2017-07-14] MEDS: levETIRAcetam 100 mg/ml (5ml) Oral Syringe PEG SCH ×2 (09:07→17:46)
[2017-07-14] MEDS: Saccharomyces Boulardi 250 mg Cap PEG SCH (09:07)
--- NOTE | 2017-07-15 06:19 | CP.PCM.PN ---
<Al Srivastava - Last Filed: 07/15/17 12:50> Subjective - Date & Time of Evaluation Date of Evaluation: 07/15/17 Time of Evaluation: :17 - Subjective Subjective: PGY1 Medicine Note for Dr. Chavis Patient was seen and examined at bedside. ROS unattainable due to patient's anoxic brain injury (05/2015). Objective - Vital Signs/Intake and Output Vital Signs (last 24 hours): Temp Pulse Resp BP Pulse Ox 98.8 F 87 20 113/75 97 07/15/17 00:00 07/15/17 00:00 07/15/17 00:00 07/15/17 00:00 07/15/17 00:00 Intake and Output: 07/14/17 07/15/17 18:59 06:59 Intake Total 600 1050 Output Total 600 Balance 600 450 - Medications Medications: Current Medications Albuterol/Ipratropium (Duoneb 3 Mg/0.5 Mg (3 Ml) Ud) 3 ml INH RQ6 PRN PRN Reason: Shortness of Breath Last Admin: 07/14/17 20:52 Dose: 3 ml Aspirin (Aspirin Chewable) 81 mg PEG DAILY [facility] Last Admin: 07/14/17 09:06 Dose: 81 mg Bethanechol Chloride (Urecholine) 50 mg PEG TID [facility] Last Admin: 07/14/17 17:45 Dose: 50 mg Carvedilol (Coreg) 3.125 mg PEG BID [facility] Last Admin: 07/14/17 17:45 Dose: 3.125 mg Clopidogrel Bisulfate (Plavix) 75 mg PEG DAILY [facility] Last Admin: 07/14/17 09:06 Dose: 75 mg Emollient Ointment (Vaseline Oint) 5 gm TOP DAILY PRN PRN Reason: Dry skin Enoxaparin Sodium (Lovenox) 40 mg SC DAILY [facility] Last Admin: 07/14/17 09:06 Dose: 40 mg Famotidine (Pepcid) 20 mg PEG DAILY [facility] Last Admin: 07/14/17 09:06 Dose: 20 mg Finasteride (Proscar) 5 mg PEG DAILY [facility] Last Admin: 07/14/17 09:07 Dose: 5 mg Ceftriaxone Sodium 1 gm/ (Sodium Chloride) 100 mls @ 100 mls/hr IVPB DAILY [facility] Levetiracetam (Keppra) 500 mg PEG BID [facility] Last Admin: 07/14/17 17:46 Dose: 500 mg Saccharomyces Boulardii (Florastor) 250 mg PEG DAILY [facility] Last Admin: 07/14/17 09:07 Dose: 250 mg Scopolamine (Transderm-Scop) 1 patch TD Q3D [facility] Last Admin: 07/13/17 20:09 Dose: 1 patch Tamsulosin HCl (Flomax) 0.4 mg PEG DAILY [facility] Last Admin: 07/14/17 09:06 Dose: 0.4 mg - Labs Labs: 07/13/17 08:04 07/13/17 08:04 PT 10.6 SECONDS (9.7-12.2) 11/24/15 14:10 INR 1.0 11/24/15 14:10 APTT 25 SECONDS (21-34) 11/24/15 14:10 - Constitutional Appears: Non-toxic, No Acute Distress - Head Exam Head Exam: ATRAUMATIC, NORMOCEPHALIC - ENT Exam ENT Exam: Mucous Membranes Moist - Neck Exam Additional comments: Trach in place. No abnormal growths in tubing. - Respiratory Exam Respiratory Exam: Clear to Ausculation Bilateral, NORMAL BREATHING PATTERN. absent: Accessory Muscle Use, Respiratory Distress - Cardiovascular Exam Cardiovascular Exam: REGULAR RHYTHM, +S1, +S2 - GI/Abdominal Exam GI & Abdominal Exam: Soft, Normal Bowel Sounds. absent: Guarding, Tenderness - Extremities Exam Extremities Exam: absent: Calf Tenderness, Pedal Edema - Neurological Exam Neurological Exam: Altered (anoxic brain injury in 05/2015) - Skin Skin Exam: Dry, Normal Color, Warm Assessment and Plan - Assessment and Plan (Free Text) Plan: Febrile Assessment & Plan: Temp 100.9 on 07/12 Tylenol ordered Blood cultures growing Stenotrophomonas Maltophilia - awaiting sensitivities. Urine cultures gram positive rods. Continue on Rocephin 1gm IV daily CXR no acute disease Anoxic encephalopathy Assessment & Plan: s/p cardiac arrest in 05/2015 no acute changes Pt has non spontaneous movements. continue current management. Continue tube feeds- at goal of 60, feedings held at night due to fluid overload Urinary tract infection Assessment & Plan: Resolved Patient afebrile WBC count stable as of 06/22/17 Tylenol 650mg po q6 PEG PRN UA and Urine Cx ordered on 05/28/17 showed gram negative rods --> Proteus Mirabilis was started Primaxin 500mg IV Q6 on 05/30/17-- DC Urinary retention Assessment & Plan: Improved 07/07/17: Catheter flushed, patient output approx. 500mL within one hour post flush. 06/27/17: Continue bladder massages to aid in voiding. 06/25/17: Patient voids with movement. Continue bladder massages to aid in voiding. 06/23/17: Patient will need to have daily bladder massage to allow for complete voiding 06/17/17: Nursing communication placed in: straight catherization with bladder scan> 100ml 06/08: urinary retention yesterday, was given 40mg lasix iv and patient was able to urinate through condom baker Take note condom cath not always securely in place so Is and Os are approximate as patient does wet bed Ordered- new condom catheter on 05/22/17 Flomax 0.4mg PEG daily Proscar 5mg PEG daily continue Bethanecol 50mg PEG TID- started after persistent retention and found to be effective. monitor I's and O's Check bladder scan for residual urine three times weekly Respiratory failure Assessment & Plan: Trach in place, continue daily monitoring for secretions. No change in management at this time. Continue with aggressive suctioning multiple times a day per respiratory therapist. Monitor for signs of respiratory distress Thick secretions Duoneb 3ml INH Q6 and Mucomyst 4ml INH Q6H Robitussin 100mg PEG Q12H Scopolamine 1 patch TD Q3D JOO Repeat CXR on 05/28/17: linear increased consolidative changes in the right mid- lung zone and left lung base which may represent atelectasis and/or infiltrate. Questionable trace left pleural effusion. moderate venous congestion. cardiomegaly. degenerative changes in the spine and shoulders Sacral ulcer Assessment & Plan: Healed Cont with offloading/cushioning/turning Continue frequent turning, protective ointment and skin checks. History of coronary artery disease Assessment & Plan: s/p cardiac stents on 06/13/15 Cont ASA 81mg via PEG daily Cont Coreg 3.125mg PEG BID Cont Plavix 75mg PO daily Seizures Assessment & Plan: Continue Keppra 500mg PEG BID for seizure prophylaxis Monitor for activity Lower extremity edema Assessment & Plan: Improved SCDs in place Pressure ulcer boots on b/l Continue to monitor Prophylactic measure Assessment & Plan: Pepcid 20 mg PEG BID Lovenox 40mg SC daily SCDs and offloading boots continue to turn and reposition q2hrs Feeds increased to 50cc/hr. Per production associate (05/02/17): tube feed goal: Isosource 1.5 @ 50cc/h Will continue tube feeds @ 50 with goal of 60cc/h Continue to monitor medication administrations and clinical presentation weekly labs. vasoline ointment applied to feet prn to prevent hyperkeratosis Stop feeding from 10pm-6am, placed into nursing communication (06/16/17) Case discussed with Dr. Palmira Melendez Carola PGY1 <Amandeep Chavis H - Last Filed: 07/15/17 14:11> Objective - Vital Signs/Intake and Output Vital Signs (last 24 hours): Temp Pulse Resp BP Pulse Ox 97.4 F L 84 20 116/78 96 07/15/17 07:37 07/15/17 07:37 07/15/17 07:37 07/15/17 07:37 07/15/17 07:37 Intake and Output: 07/15/17 07/15/17 06:59 18:59 Intake Total 1050 Output Total 600 Balance 450 - Medications Medications: Current Medications Albuterol/Ipratropium (Duoneb 3 Mg/0.5 Mg (3 Ml) Ud) 3 ml INH RQ6 PRN PRN Reason: Shortness of Breath Last Admin: 07/15/17 13:32 Dose: 3 ml Aspirin (Aspirin Chewable) 81 mg PEG DAILY [facility] Last Admin: 07/15/17 10:16 Dose: 81 mg Bethanechol Chloride (Urecholine) 50 mg PEG TID [facility] Last Admin: 07/15/17 13:53 Dose: 50 mg Carvedilol (Coreg) 3.125 mg PEG BID [facility] Last Admin: 07/15/17 10:16 Dose: 3.125 mg Clopidogrel Bisulfate (Plavix) 75 mg PEG DAILY [facility] Last Admin: 07/15/17 10:17 Dose: 75 mg Emollient Ointment (Vaseline Oint) 5 gm TOP DAILY PRN PRN Reason: Dry skin Enoxaparin Sodium (Lovenox) 40 mg SC DAILY [facility] Last Admin: 07/15/17 10:17 Dose: 40 mg Famotidine (Pepcid) 20 mg PEG DAILY [facility] Last Admin: 07/15/17 10:16 Dose: 20 mg Finasteride (Proscar) 5 mg PEG DAILY [facility] Last Admin: 07/15/17 10:17 Dose: 5 mg Ceftriaxone Sodium 1 gm/ (Sodium Chloride) 100 mls @ 100 mls/hr IVPB DAILY [facility] Last Admin: 07/15/17 10:17 Dose: 100 mls/hr Levetiracetam (Keppra) 500 mg PEG BID [facility] Last Admin: 07/15/17 10:17 Dose: 500 mg Saccharomyces Boulardii (Florastor) 250 mg PEG DAILY [facility] Last Admin: 07/15/17 10:16 Dose: 250 mg Scopolamine (Transderm-Scop) 1 patch TD Q3D [facility] Last Admin: 07/13/17 20:09 Dose: 1 patch Tamsulosin HCl (Flomax) 0.4 mg PEG DAILY [facility] Last Admin: 07/15/17 10:16 Dose: 0.4 mg - Labs Labs: 07/13/17 08:04 07/13/17 08:04 PT 10.6 SECONDS (9.7-12.2) 11/24/15 14:10 INR 1.0 11/24/15 14:10 APTT 25 SECONDS (21-34) 11/24/15 14:10 Assessment and Plan (1) Prophylactic measure Status: Acute (2) Anoxic encephalopathy Status: Chronic (3) STEMI (ST elevation myocardial infarction) Status: Acute (4) Cardiac arrest Status: Acute (5) Seizures Status: Acute (6) Respiratory failure Status: Chronic Attending/Attestation - Attestation I have personally seen and examined this patient.: Yes I have fully participated in the care of the patient.: Yes I have reviewed all pertinent clinical information, including history, physical exam and plan: Yes Notes (Text): 07/15/17 14:10 Medical attending: Patient was seen and examined by me, agrees the above note by medical officer psychiatry. At this time were still pending on finalization and sensitivities of blood culture. As previously mentioned start the patient on Rocephin due to blood culture Other than this I don't have any new news to report; the situation is unchanged Thank you very much, Amandeep Chavis
[2017-07-15] MEDS: Albuterol-Ipratrop 3 mg / 0.5 (3 ml) UD INH PRN ×3 (08:01→19:49)
[2017-07-15] MEDS: Saccharomyces Boulardi 250 mg Cap PEG SCH (10:16)
[2017-07-15] MEDS: Enoxaparin 40 mg Syringe SC SCH (10:17)
[2017-07-15] MEDS: levETIRAcetam 100 mg/ml (5ml) Oral Syringe PEG SCH ×2 (10:17→17:30)
[2017-07-15] MEDS: cefTRIAXone 1 GM in Sodium Chloride 0.9% 100 ML IVPB SCH (10:17)
[2017-07-16] MEDS: Albuterol-Ipratrop 3 mg / 0.5 (3 ml) UD INH PRN ×2 (08:40→19:48)
--- NOTE | 2017-07-16 09:06 | CP.PCM.PN ---
Subjective - Date & Time of Evaluation Date of Evaluation: 07/16/17 Time of Evaluation: 09:02 - Subjective Subjective: PGY1 Medicine Note for Dr. Chavis Patient was seen and examined at bedside. ROS unattainable due to patient's anoxic brain injury (05/2015). Objective - Vital Signs/Intake and Output Vital Signs (last 24 hours): Temp Pulse Resp BP Pulse Ox 98.7 F 77 20 128/84 96 07/16/17 07:00 07/16/17 07:00 07/16/17 07:00 07/16/17 07:00 07/16/17 07:00 Intake and Output: 07/16/17 07/16/17 06:59 18:59 Intake Total 950 Output Total 800 Balance 150 - Medications Medications: Current Medications Albuterol/Ipratropium (Duoneb 3 Mg/0.5 Mg (3 Ml) Ud) 3 ml INH RQ6 PRN PRN Reason: Shortness of Breath Last Admin: 07/16/17 08:40 Dose: 3 ml Aspirin (Aspirin Chewable) 81 mg PEG DAILY [facility] Last Admin: 07/15/17 10:16 Dose: 81 mg Bethanechol Chloride (Urecholine) 50 mg PEG TID [facility] Last Admin: 07/15/17 17:31 Dose: 50 mg Carvedilol (Coreg) 3.125 mg PEG BID [facility] Last Admin: 07/15/17 17:32 Dose: 3.125 mg Clopidogrel Bisulfate (Plavix) 75 mg PEG DAILY [facility] Last Admin: 07/15/17 10:17 Dose: 75 mg Emollient Ointment (Vaseline Oint) 5 gm TOP DAILY PRN PRN Reason: Dry skin Enoxaparin Sodium (Lovenox) 40 mg SC DAILY [facility] Last Admin: 07/15/17 10:17 Dose: 40 mg Famotidine (Pepcid) 20 mg PEG DAILY [facility] Last Admin: 07/15/17 10:16 Dose: 20 mg Finasteride (Proscar) 5 mg PEG DAILY [facility] Last Admin: 07/15/17 10:17 Dose: 5 mg Ceftriaxone Sodium 1 gm/ (Sodium Chloride) 100 mls @ 100 mls/hr IVPB DAILY [facility] Last Admin: 07/15/17 10:17 Dose: 100 mls/hr Levetiracetam (Keppra) 500 mg PEG BID [facility] Last Admin: 07/15/17 17:30 Dose: 500 mg Saccharomyces Boulardii (Florastor) 250 mg PEG DAILY [facility] Last Admin: 07/15/17 10:16 Dose: 250 mg Scopolamine (Transderm-Scop) 1 patch TD Q3D [facility] Last Admin: 07/13/17 20:09 Dose: 1 patch Tamsulosin HCl (Flomax) 0.4 mg PEG DAILY [facility] Last Admin: 07/15/17 10:16 Dose: 0.4 mg - Labs Labs: 07/13/17 08:04 07/13/17 08:04 PT 10.6 SECONDS (9.7-12.2) 11/24/15 14:10 INR 1.0 11/24/15 14:10 APTT 25 SECONDS (21-34) 11/24/15 14:10 - Constitutional Appears: Non-toxic, No Acute Distress, Chronically Ill - Head Exam Head Exam: ATRAUMATIC, NORMOCEPHALIC - ENT Exam ENT Exam: Mucous Membranes Moist - Neck Exam Additional comments: Trach in place with no growth in tubing. - Respiratory Exam Respiratory Exam: Clear to Ausculation Bilateral, NORMAL BREATHING PATTERN - Cardiovascular Exam Cardiovascular Exam: REGULAR RHYTHM, +S1, +S2 - GI/Abdominal Exam GI & Abdominal Exam: Soft, Normal Bowel Sounds. absent: Distended, Tenderness - Exam Exam: Bladder Distension (decreased with bladdar massage) - Extremities Exam Extremities Exam: absent: Pedal Edema - Neurological Exam Neurological Exam: Altered (anoxic brain injury in 05/2015) - Skin Skin Exam: Dry, Normal Color, Warm Assessment and Plan - Assessment and Plan (Free Text) Plan: Febrile Assessment & Plan: Temp 100.9 on 07/12 Tylenol ordered Blood cultures growing Stenotrophomonas Maltophilia - awaiting sensitivities. Urine cultures grew Proteus Mirabilis - resistant to everything except Amikacin (CRISTOPHER 2) and Imipenem (CRISTOPHER 4) - Started on Amikacin 900mg IV Q24H - Stopped Rocephin CXR no acute disease Anoxic encephalopathy Assessment & Plan: s/p cardiac arrest in 05/2015 no acute changes Pt has non spontaneous movements. continue current management. Continue tube feeds- at goal of 60, feedings held at night due to fluid overload Urinary tract infection Assessment & Plan: Resolved Patient afebrile WBC count stable as of 06/22/17 Tylenol 650mg po q6 PEG PRN UA and Urine Cx ordered on 05/28/17 showed gram negative rods --> Proteus Mirabilis was started Primaxin 500mg IV Q6 on 05/30/17-- DC Urinary retention Assessment & Plan: Improved 07/07/17: Catheter flushed, patient output approx. 500mL within one hour post flush. 06/27/17: Continue bladder massages to aid in voiding. 06/25/17: Patient voids with movement. Continue bladder massages to aid in voiding. 06/23/17: Patient will need to have daily bladder massage to allow for complete voiding 06/17/17: Nursing communication placed in: straight catherization with bladder scan> 100ml 06/08: urinary retention yesterday, was given 40mg lasix iv and patient was able to urinate through condom baker Take note condom cath not always securely in place so Is and Os are approximate as patient does wet bed Ordered- new condom catheter on 05/22/17 Flomax 0.4mg PEG daily Proscar 5mg PEG daily continue Bethanecol 50mg PEG TID- started after persistent retention and found to be effective. monitor I's and O's Check bladder scan for residual urine three times weekly Respiratory failure Assessment & Plan: Trach in place, continue daily monitoring for secretions. No change in management at this time. Continue with aggressive suctioning multiple times a day per respiratory therapist. Monitor for signs of respiratory distress Thick secretions Duoneb 3ml INH Q6 and Mucomyst 4ml INH Q6H Robitussin 100mg PEG Q12H Scopolamine 1 patch TD Q3D JOO Repeat CXR on 05/28/17: linear increased consolidative changes in the right mid- lung zone and left lung base which may represent atelectasis and/or infiltrate. Questionable trace left pleural effusion. moderate venous congestion. cardiomegaly. degenerative changes in the spine and shoulders Sacral ulcer Assessment & Plan: Healed Cont with offloading/cushioning/turning Continue frequent turning, protective ointment and skin checks. History of coronary artery disease Assessment & Plan: s/p cardiac stents on 06/13/15 Cont ASA 81mg via PEG daily Cont Coreg 3.125mg PEG BID Cont Plavix 75mg PO daily Seizures Assessment & Plan: Continue Keppra 500mg PEG BID for seizure prophylaxis Monitor for activity Lower extremity edema Assessment & Plan: Improved SCDs in place Pressure ulcer boots on b/l Continue to monitor Prophylactic measure Assessment & Plan: Pepcid 20 mg PEG BID Lovenox 40mg SC daily SCDs and offloading boots continue to turn and reposition q2hrs Feeds increased to 50cc/hr. Per logistics analyst (05/02/17): tube feed goal: Isosource 1.5 @ 50cc/h Will continue tube feeds @ 50 with goal of 60cc/h Continue to monitor medication administrations and clinical presentation weekly labs. vasoline ointment applied to feet prn to prevent hyperkeratosis Stop feeding from 10pm-6am, placed into nursing communication (06/16/17) Case discussed with Dr. Palmira Melendez Carola PGY1
[2017-07-16] MEDS: Saccharomyces Boulardi 250 mg Cap PEG SCH (10:13)
[2017-07-16] MEDS: Enoxaparin 40 mg Syringe SC SCH (10:14)
[2017-07-16] MEDS: cefTRIAXone 1 GM in Sodium Chloride 0.9% 100 ML IVPB SCH (10:14)
[2017-07-16] MEDS: levETIRAcetam 100 mg/ml (5ml) Oral Syringe PEG SCH ×2 (10:14→17:45)
--- NOTE | 2017-07-16 19:32 | CP.PCM.PN ---
Subjective - Date & Time of Evaluation Date of Evaluation: 07/16/17 Time of Evaluation: 08:00 - Subjective Subjective: recent blood c/s noted source unclear - likely lung will adjust iv rx Objective - Vital Signs/Intake and Output Vital Signs (last 24 hours): Temp Pulse Resp BP Pulse Ox 99.8 F H 116 H 20 128/74 98 07/16/17 16:28 07/16/17 16:28 07/16/17 16:28 07/16/17 16:28 07/16/17 16:28 Intake and Output: 07/16/17 07/17/17 18:59 06:59 Intake Total 800 Output Total 350 Balance 450 - Medications Medications: Current Medications Albuterol/Ipratropium (Duoneb 3 Mg/0.5 Mg (3 Ml) Ud) 3 ml INH RQ6 PRN PRN Reason: Shortness of Breath Last Admin: 07/16/17 08:40 Dose: 3 ml Aspirin (Aspirin Chewable) 81 mg PEG DAILY [facility] Last Admin: 07/16/17 10:13 Dose: 81 mg Bethanechol Chloride (Urecholine) 50 mg PEG TID [facility] Last Admin: 07/16/17 13:25 Dose: 50 mg Carvedilol (Coreg) 3.125 mg PEG BID [facility] Last Admin: 07/16/17 17:45 Dose: 3.125 mg Clopidogrel Bisulfate (Plavix) 75 mg PEG DAILY [facility] Last Admin: 07/16/17 10:15 Dose: 75 mg Emollient Ointment (Vaseline Oint) 5 gm TOP DAILY PRN PRN Reason: Dry skin Enoxaparin Sodium (Lovenox) 40 mg SC DAILY [facility] Last Admin: 07/16/17 10:14 Dose: 40 mg Famotidine (Pepcid) 20 mg PEG DAILY [facility] Last Admin: 07/16/17 10:14 Dose: 20 mg Finasteride (Proscar) 5 mg PEG DAILY [facility] Last Admin: 07/16/17 10:13 Dose: 5 mg Amikacin Sulfate 900 mg/ (Sodium Chloride) 103.6 mls @ 103.6 mls/hr IVPB Q24H [facility] Last Admin: 07/16/17 18:19 Dose: 103.6 mls/hr Levetiracetam (Keppra) 500 mg PEG BID [facility] Last Admin: 07/16/17 17:45 Dose: 500 mg Saccharomyces Boulardii (Florastor) 250 mg PEG DAILY [facility] Last Admin: 07/16/17 10:13 Dose: 250 mg Scopolamine (Transderm-Scop) 1 patch TD Q3D [facility] Last Admin: 07/13/17 20:09 Dose: 1 patch Tamsulosin HCl (Flomax) 0.4 mg PEG DAILY [facility] Last Admin: 07/16/17 10:13 Dose: 0.4 mg - Labs Labs: 07/13/17 08:04 07/13/17 08:04 PT 10.6 SECONDS (9.7-12.2) 11/24/15 14:10 INR 1.0 11/24/15 14:10 APTT 25 SECONDS (21-34) 11/24/15 14:10 Assessment and Plan (1) UTI (urinary tract infection) Status: Resolved (2) Anoxic encephalopathy Status: Chronic
[2017-07-16] MEDS: Ciprofloxacin 400mg/200ml D5W 400 MG/200 ML BAG IVPB SCH (20:48)
[2017-07-17] MEDS: Ciprofloxacin 400mg/200ml D5W 400 MG/200 ML BAG IVPB SCH ×2 (08:21→20:18)
[2017-07-17] MEDS: Albuterol-Ipratrop 3 mg / 0.5 (3 ml) UD INH PRN ×2 (09:10→19:15)
--- NOTE | 2017-07-17 10:02 | RAD ---
HISTORY: fever of 103 COMPARISON: Chest x-ray performed 07/12/17 TECHNIQUE: Chest, one view. FINDINGS: Tracheostomy tube. Examination limited by habitus and hypoinflation. LUNGS: Patient's face mask obscures evaluation of the lung apices. Linear atelectasis right midlung zone. Discoid atelectasis, left lung base. PLEURA: No significant pleural effusion identified. No definite pneumothorax . CARDIOVASCULAR: Cardiomegaly. OSSEOUS STRUCTURES: Degenerative changes. VISUALIZED UPPER ABDOMEN: Mild elevation of the right hemidiaphragm. OTHER FINDINGS: None. IMPRESSION: Tracheostomy tube. Cardiomegaly. Linear atelectasis right midlung zone. Discoid atelectasis, left lung base.
[2017-07-17] MEDS: levETIRAcetam 100 mg/ml (5ml) Oral Syringe PEG SCH ×2 (10:41→17:44)
[2017-07-17] MEDS: Saccharomyces Boulardi 250 mg Cap PEG SCH (10:42)
[2017-07-17] MEDS: Enoxaparin 40 mg Syringe SC SCH (10:42)
--- NOTE | 2017-07-17 15:34 | CP.PCM.PN ---
Subjective - Date & Time of Evaluation Date of Evaluation: 07/17/17 Time of Evaluation: 07:30 - Subjective Subjective: PGY1 Medicine Note for Dr. Chavis Patient was seen and examined at bedside. ROS unattainable due to patient's anoxic brain injury (05/2015). Objective - Vital Signs/Intake and Output Vital Signs (last 24 hours): Temp Pulse Resp BP Pulse Ox 98.7 F 90 20 107/72 96 07/17/17 07:39 07/17/17 07:39 07/17/17 07:39 07/17/17 07:39 07/17/17 07:39 Intake and Output: 07/17/17 07/17/17 06:59 18:59 Intake Total 950 900 Output Total 600 300 Balance 350 600 - Medications Medications: Current Medications Acetaminophen (Tylenol 650mg/20.3ml Solution Ud) 650 mg PO Q4 PRN PRN Reason: Temperature Albuterol/Ipratropium (Duoneb 3 Mg/0.5 Mg (3 Ml) Ud) 3 ml INH RQ6 PRN PRN Reason: Shortness of Breath Last Admin: 07/17/17 09:10 Dose: 3 ml Aspirin (Aspirin Chewable) 81 mg PEG DAILY [facility] Last Admin: 07/17/17 10:42 Dose: 81 mg Bethanechol Chloride (Urecholine) 50 mg PEG TID [facility] Last Admin: 07/17/17 13:16 Dose: 50 mg Carvedilol (Coreg) 3.125 mg PEG BID [facility] Last Admin: 07/17/17 10:42 Dose: 3.125 mg Clopidogrel Bisulfate (Plavix) 75 mg PEG DAILY [facility] Last Admin: 07/17/17 10:42 Dose: 75 mg Emollient Ointment (Vaseline Oint) 5 gm TOP DAILY PRN PRN Reason: Dry skin Enoxaparin Sodium (Lovenox) 40 mg SC DAILY [facility] Last Admin: 07/17/17 10:42 Dose: 40 mg Famotidine (Pepcid) 20 mg PEG DAILY [facility] Last Admin: 07/17/17 10:42 Dose: 20 mg Finasteride (Proscar) 5 mg PEG DAILY [facility] Last Admin: 07/17/17 10:42 Dose: 5 mg Ciprofloxacin (Cipro 400mg/200ml Dsw) 400 mg in 200 mls @ 133 mls/hr IVPB Q12H [facility] Last Admin: 07/17/17 08:21 Dose: 133 mls/hr Amikacin Sulfate 900 mg/ (Sodium Chloride) 253.6 mls @ 169.067 mls/hr IVPB Q24H [facility] Levetiracetam (Keppra) 500 mg PEG BID [facility] Last Admin: 07/17/17 10:41 Dose: 500 mg Saccharomyces Boulardii (Florastor) 250 mg PEG DAILY [facility] Last Admin: 07/17/17 10:42 Dose: 250 mg Scopolamine (Transderm-Scop) 1 patch TD Q3D [facility] Last Admin: 07/16/17 20:00 Dose: 1 patch Tamsulosin HCl (Flomax) 0.4 mg PEG DAILY [facility] Last Admin: 07/17/17 10:42 Dose: 0.4 mg - Labs Labs: 07/13/17 08:04 07/13/17 08:04 PT 10.6 SECONDS (9.7-12.2) 11/24/15 14:10 INR 1.0 11/24/15 14:10 APTT 25 SECONDS (21-34) 11/24/15 14:10 - Constitutional Appears: No Acute Distress - Head Exam Head Exam: ATRAUMATIC, NORMOCEPHALIC - ENT Exam ENT Exam: Mucous Membranes Moist - Neck Exam Additional comments: Trach in place. no growth in tubing. - Respiratory Exam Respiratory Exam: Clear to Ausculation Bilateral, NORMAL BREATHING PATTERN. absent: Accessory Muscle Use, Rales, Wheezes, Respiratory Distress - Cardiovascular Exam Cardiovascular Exam: REGULAR RHYTHM, +S1, +S2 - GI/Abdominal Exam GI & Abdominal Exam: Soft, Normal Bowel Sounds. absent: Distended, Guarding, Tenderness - Exam Exam: Bladder Distension (bladder massage) - Extremities Exam Extremities Exam: absent: Calf Tenderness, Pedal Edema - Neurological Exam Neurological Exam: Altered (anoxic brain injury in 05/2015) - Skin Skin Exam: Dry, Normal Color, Warm Assessment and Plan - Assessment and Plan (Free Text) Plan: Febrile Assessment & Plan: Temp 100.9 on 07/12, 103 on 07/16 Tylenol ordered Blood cultures growing Stenotrophomonas Maltophilia - sensitive to Cipro - started on 400mg IV Q12H Urine cultures grew Proteus Mirabilis - resistant to everything except Amikacin (CRISTOPHER 2) and Imipenem (CRISTOPHER 4) - continue Amikacin 900mg IV Q24H - Stopped Rocephin CXR no acute disease Anoxic encephalopathy Assessment & Plan: s/p cardiac arrest in 05/2015 no acute changes Pt has non spontaneous movements. continue current management. Continue tube feeds- at goal of 60, feedings held at night due to fluid overload Urinary tract infection Assessment & Plan: Resolved Patient afebrile WBC count stable as of 06/22/17 Tylenol 650mg po q6 PEG PRN UA and Urine Cx ordered on 05/28/17 showed gram negative rods --> Proteus Mirabilis was started Primaxin 500mg IV Q6 on 05/30/17-- DC Urinary retention Assessment & Plan: Improved 07/07/17: Catheter flushed, patient output approx. 500mL within one hour post flush. 06/27/17: Continue bladder massages to aid in voiding. 06/25/17: Patient voids with movement. Continue bladder massages to aid in voiding. 06/23/17: Patient will need to have daily bladder massage to allow for complete voiding 06/17/17: Nursing communication placed in: straight catherization with bladder scan> 100ml 06/08: urinary retention yesterday, was given 40mg lasix iv and patient was able to urinate through condom baker Take note condom cath not always securely in place so Is and Os are approximate as patient does wet bed Ordered- new condom catheter on 05/22/17 Flomax 0.4mg PEG daily Proscar 5mg PEG daily continue Bethanecol 50mg PEG TID- started after persistent retention and found to be effective. monitor I's and O's Check bladder scan for residual urine three times weekly Respiratory failure Assessment & Plan: Trach in place, continue daily monitoring for secretions. No change in management at this time. Continue with aggressive suctioning multiple times a day per respiratory therapist. Monitor for signs of respiratory distress Thick secretions Duoneb 3ml INH Q6 and Mucomyst 4ml INH Q6H Robitussin 100mg PEG Q12H Scopolamine 1 patch TD Q3D JOO Repeat CXR on 05/28/17: linear increased consolidative changes in the right mid- lung zone and left lung base which may represent atelectasis and/or infiltrate. Questionable trace left pleural effusion. moderate venous congestion. cardiomegaly. degenerative changes in the spine and shoulders Sacral ulcer Assessment & Plan: Healed Cont with offloading/cushioning/turning Continue frequent turning, protective ointment and skin checks. History of coronary artery disease Assessment & Plan: s/p cardiac stents on 06/13/15 Cont ASA 81mg via PEG daily Cont Coreg 3.125mg PEG BID Cont Plavix 75mg PO daily Seizures Assessment & Plan: Continue Keppra 500mg PEG BID for seizure prophylaxis Monitor for activity Lower extremity edema Assessment & Plan: Improved SCDs in place Pressure ulcer boots on b/l Continue to monitor Prophylactic measure Assessment & Plan: Pepcid 20 mg PEG BID Lovenox 40mg SC daily SCDs and offloading boots continue to turn and reposition q2hrs Feeds increased to 50cc/hr. Per doubler operator (05/02/17): tube feed goal: Isosource 1.5 @ 50cc/h Will continue tube feeds @ 50 with goal of 60cc/h Continue to monitor medication administrations and clinical presentation weekly labs. vasoline ointment applied to feet prn to prevent hyperkeratosis Stop feeding from 10pm-6am, placed into nursing communication (06/16/17) Case discussed with Dr. Palmira Melendez Carola PGY1
[2017-07-17] MEDS: AMIKACIN SULFATE IVPB SCH (16:05)
[2017-07-17] MEDS: SODIUM CHLORIDE 0.9% IVPB SCH (16:05)
--- NOTE | 2017-07-17 18:01 | CP.PCM.PN ---
Subjective - Date & Time of Evaluation Date of Evaluation: 07/17/17 Time of Evaluation: 09:00 - Subjective Subjective: remains comatose iv Cipro added for s maltophilia cultures repeated Objective - Vital Signs/Intake and Output Vital Signs (last 24 hours): Temp Pulse Resp BP Pulse Ox 98.7 F 94 H 20 122/87 97 07/17/17 15:00 07/17/17 15:00 07/17/17 15:00 07/17/17 15:00 07/17/17 15:00 Intake and Output: 07/17/17 07/17/17 06:59 18:59 Intake Total 950 900 Output Total 600 300 Balance 350 600 - Medications Medications: Current Medications Acetaminophen (Tylenol 650mg/20.3ml Solution Ud) 650 mg PO Q4 PRN PRN Reason: Temperature Albuterol/Ipratropium (Duoneb 3 Mg/0.5 Mg (3 Ml) Ud) 3 ml INH RQ6 PRN PRN Reason: Shortness of Breath Last Admin: 07/17/17 09:10 Dose: 3 ml Aspirin (Aspirin Chewable) 81 mg PEG DAILY [facility] Last Admin: 07/17/17 10:42 Dose: 81 mg Bethanechol Chloride (Urecholine) 50 mg PEG TID [facility] Last Admin: 07/17/17 17:44 Dose: 50 mg Carvedilol (Coreg) 3.125 mg PEG BID [facility] Last Admin: 07/17/17 17:44 Dose: 3.125 mg Clopidogrel Bisulfate (Plavix) 75 mg PEG DAILY [facility] Last Admin: 07/17/17 10:42 Dose: 75 mg Emollient Ointment (Vaseline Oint) 5 gm TOP DAILY PRN PRN Reason: Dry skin Enoxaparin Sodium (Lovenox) 40 mg SC DAILY [facility] Last Admin: 07/17/17 10:42 Dose: 40 mg Famotidine (Pepcid) 20 mg PEG DAILY [facility] Last Admin: 07/17/17 10:42 Dose: 20 mg Finasteride (Proscar) 5 mg PEG DAILY [facility] Last Admin: 07/17/17 10:42 Dose: 5 mg Ciprofloxacin (Cipro 400mg/200ml Dsw) 400 mg in 200 mls @ 133 mls/hr IVPB Q12H [facility] Last Admin: 07/17/17 08:21 Dose: 133 mls/hr Amikacin Sulfate 900 mg/ (Sodium Chloride) 253.6 mls @ 169.067 mls/hr IVPB Q24H [facility] Last Admin: 07/17/17 16:05 Dose: 169.067 mls/hr Levetiracetam (Keppra) 500 mg PEG BID [facility] Last Admin: 07/17/17 17:44 Dose: 500 mg Saccharomyces Boulardii (Florastor) 250 mg PEG DAILY [facility] Last Admin: 07/17/17 10:42 Dose: 250 mg Scopolamine (Transderm-Scop) 1 patch TD Q3D [facility] Last Admin: 07/16/17 20:00 Dose: 1 patch Tamsulosin HCl (Flomax) 0.4 mg PEG DAILY [facility] Last Admin: 07/17/17 10:42 Dose: 0.4 mg - Labs Labs: 07/13/17 08:04 07/13/17 08:04 PT 10.6 SECONDS (9.7-12.2) 11/24/15 14:10 INR 1.0 11/24/15 14:10 APTT 25 SECONDS (21-34) 11/24/15 14:10 Assessment and Plan (1) UTI (urinary tract infection) Status: Resolved (2) Anoxic encephalopathy Status: Chronic
--- NOTE | 2017-07-18 00:27 | CP.PCM.PN ---
<AlexFrancis S - Last Filed: 07/18/17 05:58> Subjective - Date & Time of Evaluation Date of Evaluation: 07/18/17 Time of Evaluation: 17:00 - Subjective Subjective: PGY-[address] Chavis Patient was seen and examined at bedside. ROS unattainable due to comatose state. Objective - Vital Signs/Intake and Output Vital Signs (last 24 hours): Temp Pulse Resp BP Pulse Ox 98.7 F 94 H 20 122/87 97 07/17/17 15:00 07/17/17 15:00 07/17/17 15:00 07/17/17 15:00 07/17/17 15:00 Intake and Output: 07/17/17 07/18/17 18:59 06:59 Intake Total 900 Output Total 300 Balance 600 - Medications Medications: Current Medications Acetaminophen (Tylenol 650mg/20.3ml Solution Ud) 650 mg PO Q4 PRN PRN Reason: Temperature Albuterol/Ipratropium (Duoneb 3 Mg/0.5 Mg (3 Ml) Ud) 3 ml INH RQ6 PRN PRN Reason: Shortness of Breath Last Admin: 07/17/17 19:15 Dose: 3 ml Aspirin (Aspirin Chewable) 81 mg PEG DAILY [facility] Last Admin: 07/17/17 10:42 Dose: 81 mg Bethanechol Chloride (Urecholine) 50 mg PEG TID [facility] Last Admin: 07/17/17 17:44 Dose: 50 mg Carvedilol (Coreg) 3.125 mg PEG BID [facility] Last Admin: 07/17/17 17:44 Dose: 3.125 mg Clopidogrel Bisulfate (Plavix) 75 mg PEG DAILY [facility] Last Admin: 07/17/17 10:42 Dose: 75 mg Emollient Ointment (Vaseline Oint) 5 gm TOP DAILY PRN PRN Reason: Dry skin Enoxaparin Sodium (Lovenox) 40 mg SC DAILY [facility] Last Admin: 07/17/17 10:42 Dose: 40 mg Famotidine (Pepcid) 20 mg PEG DAILY [facility] Last Admin: 07/17/17 10:42 Dose: 20 mg Finasteride (Proscar) 5 mg PEG DAILY [facility] Last Admin: 07/17/17 10:42 Dose: 5 mg Ciprofloxacin (Cipro 400mg/200ml Dsw) 400 mg in 200 mls @ 133 mls/hr IVPB Q12H [facility] Last Admin: 07/17/17 20:18 Dose: 133 mls/hr Amikacin Sulfate 900 mg/ (Sodium Chloride) 253.6 mls @ 169.067 mls/hr IVPB Q24H [facility] Last Admin: 07/17/17 16:05 Dose: 169.067 mls/hr Levetiracetam (Keppra) 500 mg PEG BID [facility] Last Admin: 07/17/17 17:44 Dose: 500 mg Saccharomyces Boulardii (Florastor) 250 mg PEG DAILY [facility] Last Admin: 07/17/17 10:42 Dose: 250 mg Scopolamine (Transderm-Scop) 1 patch TD Q3D [facility] Last Admin: 07/16/17 20:00 Dose: 1 patch Tamsulosin HCl (Flomax) 0.4 mg PEG DAILY [facility] Last Admin: 07/17/17 10:42 Dose: 0.4 mg - Labs Labs: 07/13/17 08:04 07/13/17 08:04 PT 10.6 SECONDS (9.7-12.2) 11/24/15 14:10 INR 1.0 11/24/15 14:10 APTT 25 SECONDS (21-34) 11/24/15 14:10 - Constitutional Appears: No Acute Distress - Head Exam Head Exam: ATRAUMATIC, NORMOCEPHALIC - ENT Exam ENT Exam: Mucous Membranes Moist - Neck Exam Additional comments: Trach in place. No growth in tubing. - Respiratory Exam Respiratory Exam: Clear to Ausculation Bilateral. absent: Rales, Rhonchi, Wheezes - Cardiovascular Exam Cardiovascular Exam: REGULAR RHYTHM, +S1, +S2 - GI/Abdominal Exam GI & Abdominal Exam: Soft, Normal Bowel Sounds. absent: Distended, Guarding, Tenderness - Exam Exam: Bladder Distension ((bladder massage)) - Extremities Exam Extremities Exam: absent: Pedal Edema, Tenderness - Neurological Exam Neurological Exam: Altered (anoxic brain injury in 05/2015) - Skin Skin Exam: Dry, Normal Color, Warm Assessment and Plan - Assessment and Plan (Free Text) Plan: Febrile Assessment & Plan: 07/18: Spiked a temperature overnight 100 degrees Temp 100.9 on 07/12, 103 on 07/16 Tylenol ordered Blood cultures growing Stenotrophomonas Maltophilia - sensitive to Cipro - started on 400mg IV Q12H Urine cultures grew Proteus Mirabilis - resistant to everything except Amikacin (CRISTOPHER 2) and Imipenem (CRISTOPHER 4) - continue Amikacin 900mg IV Q24H - Stopped Rocephin CXR no acute disease Anoxic encephalopathy Assessment & Plan: s/p cardiac arrest in 05/2015 no acute changes Pt has non spontaneous movements. continue current management. Continue tube feeds- at goal of 60, feedings held at night due to fluid overload Urinary tract infection Assessment & Plan: Resolved Patient afebrile WBC count stable as of 06/22/17 Tylenol 650mg po q6 PEG PRN UA and Urine Cx ordered on 05/28/17 showed gram negative rods --> Proteus Mirabilis was started Primaxin 500mg IV Q6 on 05/30/17-- DC Urinary retention Assessment & Plan: Improved 07/07/17: Catheter flushed, patient output approx. 500mL within one hour post flush. 06/27/17: Continue bladder massages to aid in voiding. 06/25/17: Patient voids with movement. Continue bladder massages to aid in voiding. 06/23/17: Patient will need to have daily bladder massage to allow for complete voiding 06/17/17: Nursing communication placed in: straight catherization with bladder scan> 100ml 06/08: urinary retention yesterday, was given 40mg lasix iv and patient was able to urinate through condom baker Take note condom cath not always securely in place so Is and Os are approximate as patient does wet bed Ordered- new condom catheter on 05/22/17 Flomax 0.4mg PEG daily Proscar 5mg PEG daily continue Bethanecol 50mg PEG TID- started after persistent retention and found to be effective. monitor I's and O's Check bladder scan for residual urine three times weekly Respiratory failure Assessment & Plan: Trach in place, continue daily monitoring for secretions. No change in management at this time. Continue with aggressive suctioning multiple times a day per respiratory therapist. Monitor for signs of respiratory distress Thick secretions Duoneb 3ml INH Q6 and Mucomyst 4ml INH Q6H Robitussin 100mg PEG Q12H Scopolamine 1 patch TD Q3D JOO Repeat CXR on 05/28/17: linear increased consolidative changes in the right mid- lung zone and left lung base which may represent atelectasis and/or infiltrate. Questionable trace left pleural effusion. moderate venous congestion. cardiomegaly. degenerative changes in the spine and shoulders Sacral ulcer Assessment & Plan: Healed Cont with offloading/cushioning/turning Continue frequent turning, protective ointment and skin checks. History of coronary artery disease Assessment & Plan: s/p cardiac stents on 06/13/15 Cont ASA 81mg via PEG daily Cont Coreg 3.125mg PEG BID Cont Plavix 75mg PO daily Seizures Assessment & Plan: Continue Keppra 500mg PEG BID for seizure prophylaxis Monitor for activity Lower extremity edema Assessment & Plan: Improved SCDs in place Pressure ulcer boots on b/l Continue to monitor Prophylactic measure Assessment & Plan: Pepcid 20 mg PEG BID Lovenox 40mg SC daily SCDs and offloading boots continue to turn and reposition q2hrs Feeds increased to 50cc/hr. Per seam hammerer (05/02/17): tube feed goal: Isosource 1.5 @ 50cc/h Will continue tube feeds @ 50 with goal of 60cc/h Continue to monitor medication administrations and clinical presentation weekly labs. vasoline ointment applied to feet prn to prevent hyperkeratosis Stop feeding from 10pm-6am, placed into nursing communication (06/16/17) <Amandeep Chavis H - Last Filed: 07/18/17 10:56> Objective - Vital Signs/Intake and Output Vital Signs (last 24 hours): Temp Pulse Resp BP Pulse Ox 99 F 86 20 118/76 95 07/18/17 09:10 07/18/17 08:06 07/18/17 08:06 07/18/17 08:06 07/18/17 08:06 Intake and Output: 07/18/17 07/18/17 06:59 18:59 Intake Total 250 Output Total 150 Balance 100 - Medications Medications: Current Medications Acetaminophen (Tylenol 650mg/20.3ml Solution Ud) 650 mg PO Q4 PRN PRN Reason: Temperature Last Admin: 07/18/17 09:10 Dose: 650 mg Albuterol/Ipratropium (Duoneb 3 Mg/0.5 Mg (3 Ml) Ud) 3 ml INH RQ6 PRN PRN Reason: Shortness of Breath Last Admin: 08/26/17 08:02 Dose: 3 ml Aspirin (Aspirin Chewable) 81 mg PEG DAILY [facility] Last Admin: 07/18/17 09:06 Dose: 81 mg Bethanechol Chloride (Urecholine) 50 mg PEG TID [facility] Last Admin: 07/18/17 09:07 Dose: 50 mg Carvedilol (Coreg) 3.125 mg PEG BID [facility] Last Admin: 07/18/17 09:07 Dose: 3.125 mg Clopidogrel Bisulfate (Plavix) 75 mg PEG DAILY [facility] Last Admin: 07/18/17 09:07 Dose: 75 mg Emollient Ointment (Vaseline Oint) 5 gm TOP DAILY PRN PRN Reason: Dry skin Enoxaparin Sodium (Lovenox) 40 mg SC DAILY [facility] Last Admin: 07/18/17 09:06 Dose: 40 mg Famotidine (Pepcid) 20 mg PEG DAILY [facility] Last Admin: 07/18/17 09:07 Dose: 20 mg Finasteride (Proscar) 5 mg PEG DAILY [facility] Last Admin: 07/18/17 09:11 Dose: 5 mg Ciprofloxacin (Cipro 400mg/200ml Dsw) 400 mg in 200 mls @ 133 mls/hr IVPB Q12H [facility] Last Admin: 07/18/17 08:00 Dose: 133 mls/hr Amikacin Sulfate 900 mg/ (Sodium Chloride) 253.6 mls @ 169.067 mls/hr IVPB Q24H [facility] Last Admin: 07/17/17 16:05 Dose: 169.067 mls/hr Levetiracetam (Keppra) 500 mg PEG BID [facility] Last Admin: 07/18/17 09:10 Dose: 500 mg Saccharomyces Boulardii (Florastor) 250 mg PEG DAILY [facility] Last Admin: 07/18/17 09:06 Dose: 250 mg Scopolamine (Transderm-Scop) 1 patch TD Q3D [facility] Last Admin: 07/16/17 20:00 Dose: 1 patch Tamsulosin HCl (Flomax) 0.4 mg PEG DAILY [facility] Last Admin: 07/18/17 09:06 Dose: 0.4 mg - Labs Labs: 07/13/17 08:04 07/13/17 08:04 PT 10.6 SECONDS (9.7-12.2) 11/24/15 14:10 INR 1.0 11/24/15 14:10 APTT 25 SECONDS (21-34) 11/24/15 14:10 Assessment and Plan (1) Prophylactic measure Status: Acute (2) Anoxic encephalopathy Status: Chronic (3) STEMI (ST elevation myocardial infarction) Status: Acute (4) Cardiac arrest Status: Acute (5) Seizures Status: Acute (6) Respiratory failure Status: Chronic Attending/Attestation - Attestation I have personally seen and examined this patient.: Yes I have fully participated in the care of the patient.: Yes I have reviewed all pertinent clinical information, including history, physical exam and plan: Yes Notes (Text): 07/18/17 10:54 Medical Attending: Patient was seen and examined by me. Agree with the above note by the resident. The patient earlier today was noted to be coughing. The tube feeds were stopped and there was some dark material from the PEG tube. PEG tube was placed to suction drainage and it maybe either tube feeds vs potential fecal material. We will have to get a CXRAY to assess for aspiration / pneumonia. The patient is already on Amikacin and Cipro. Recent blood cultures have been negative for 24hrs.
[2017-07-18] MEDS: Acetaminophen 650mg/20.3ml solution UD PO PRN ×3 (01:23→19:26)
[2017-07-18] MEDS: Ciprofloxacin 400mg/200ml D5W 400 MG/200 ML BAG IVPB SCH ×2 (08:00→20:46)
[2017-07-18] MEDS: Albuterol-Ipratrop 3 mg / 0.5 (3 ml) UD INH PRN ×4 (08:02→20:12)
[2017-07-18] MEDS: Saccharomyces Boulardi 250 mg Cap PEG SCH (09:06)
[2017-07-18] MEDS: Enoxaparin 40 mg Syringe SC SCH (09:06)
[2017-07-18] MEDS: levETIRAcetam 100 mg/ml (5ml) Oral Syringe PEG SCH ×2 (09:10→18:06)
--- NOTE | 2017-07-18 15:02 | RAD ---
PROCEDURE: CHEST RADIOGRAPH, 1 VIEW HISTORY: Projectile Vomited. Concerned about aspiration COMPARISON: Portable chest 07/16/2017 FINDINGS: LUNGS: Tracheostomy tube is unchanged in position. The limited atelectasis seen at both lung bases with developing right pleural effusion now present but appearing minimal. None is seen the left. PLEURA: No pneumothorax. CARDIOVASCULAR: Prominent cardiac silhouette again evident. OSSEOUS STRUCTURES: No significant abnormalities. VISUALIZED UPPER ABDOMEN: Normal. OTHER FINDINGS: None. IMPRESSION: Likely bilateral basilar atelectasis appreciated at the right with linear atelectasis again seen the left. Trace right pleural effusion. None seen at the left. Stable cardiac silhouette.
[2017-07-18] MEDS: AMIKACIN SULFATE IVPB SCH (16:45)
[2017-07-18] MEDS: SODIUM CHLORIDE 0.9% IVPB SCH (16:45)
--- NOTE | 2017-07-19 06:17 | CP.PCM.PN ---
<Francis Johnson - Last Filed: 07/19/17 06:14> Subjective - Date & Time of Evaluation Date of Evaluation: 07/19/17 Time of Evaluation: 06:15 - Subjective Subjective: PGY-[address] Chavis Patient was seen and examined at bedside. ROS unattainable due to vegetative state. Objective - Vital Signs/Intake and Output Vital Signs (last 24 hours): Temp Pulse Resp BP Pulse Ox 99.2 F 93 H 16 105/70 98 07/18/17 23:00 07/18/17 23:00 07/18/17 23:00 07/18/17 23:00 07/18/17 23:00 Intake and Output: 07/18/17 07/19/17 18:59 06:59 Intake Total 570 Output Total 600 Balance -30 - Medications Medications: Current Medications Acetaminophen (Tylenol 650mg/20.3ml Solution Ud) 650 mg PO Q4 PRN PRN Reason: Temperature Last Admin: 07/18/17 19:26 Dose: 650 mg Albuterol/Ipratropium (Duoneb 3 Mg/0.5 Mg (3 Ml) Ud) 3 ml INH RQ6 PRN PRN Reason: Shortness of Breath Last Admin: 07/18/17 20:12 Dose: 3 ml Aspirin (Aspirin Chewable) 81 mg PEG DAILY [facility] Last Admin: 07/18/17 09:06 Dose: 81 mg Bethanechol Chloride (Urecholine) 50 mg PEG TID [facility] Last Admin: 07/18/17 18:06 Dose: 50 mg Carvedilol (Coreg) 3.125 mg PEG BID [facility] Last Admin: 07/18/17 18:05 Dose: Not Given Clopidogrel Bisulfate (Plavix) 75 mg PEG DAILY [facility] Last Admin: 07/18/17 09:07 Dose: 75 mg Emollient Ointment (Vaseline Oint) 5 gm TOP DAILY PRN PRN Reason: Dry skin Enoxaparin Sodium (Lovenox) 40 mg SC DAILY [facility] Last Admin: 07/18/17 09:06 Dose: 40 mg Famotidine (Pepcid) 20 mg PEG DAILY [facility] Last Admin: 07/18/17 09:07 Dose: 20 mg Finasteride (Proscar) 5 mg PEG DAILY [facility] Last Admin: 07/18/17 09:11 Dose: 5 mg Ciprofloxacin (Cipro 400mg/200ml Dsw) 400 mg in 200 mls @ 133 mls/hr IVPB Q12H [facility] Last Admin: 07/18/17 20:46 Dose: 133 mls/hr Amikacin Sulfate 900 mg/ (Sodium Chloride) 253.6 mls @ 169.067 mls/hr IVPB Q24H [facility] Last Admin: 07/18/17 16:45 Dose: 169.067 mls/hr Levetiracetam (Keppra) 500 mg PEG BID [facility] Last Admin: 07/18/17 18:06 Dose: 500 mg Saccharomyces Boulardii (Florastor) 250 mg PEG DAILY [facility] Last Admin: 07/18/17 09:06 Dose: 250 mg Scopolamine (Transderm-Scop) 1 patch TD Q3D [facility] Last Admin: 07/16/17 20:00 Dose: 1 patch Tamsulosin HCl (Flomax) 0.4 mg PEG DAILY [facility] Last Admin: 07/18/17 09:06 Dose: 0.4 mg - Labs Labs: 07/13/17 08:04 07/13/17 08:04 PT 10.6 SECONDS (9.7-12.2) 11/24/15 14:10 INR 1.0 11/24/15 14:10 APTT 25 SECONDS (21-34) 11/24/15 14:10 - Constitutional Appears: No Acute Distress - Head Exam Head Exam: ATRAUMATIC, NORMOCEPHALIC - ENT Exam ENT Exam: Mucous Membranes Moist - Neck Exam Additional comments: Trach in place. No growth in the tubing. - Respiratory Exam Respiratory Exam: Clear to Ausculation Bilateral. absent: Rales, Rhonchi, Wheezes - Cardiovascular Exam Cardiovascular Exam: REGULAR RHYTHM, +S1, +S2 - GI/Abdominal Exam GI & Abdominal Exam: Soft, Normal Bowel Sounds. absent: Distended, Tenderness - Exam Exam: Bladder Distension (bladder massage) - Extremities Exam Extremities Exam: absent: Pedal Edema - Neurological Exam Neurological Exam: Altered (anoxic brain injury in 05/2015) - Skin Skin Exam: Dry, Normal Color, Warm Assessment and Plan - Assessment and Plan (Free Text) Plan: Febrile Assessment & Plan: 07/19: Afebrile overnight 07/18: Spiked a temperature overnight 100 degrees Temp 100.9 on 8/20, 103 on 07/16 Tylenol ordered Blood cultures growing Stenotrophomonas Maltophilia - sensitive to Cipro - started on 400mg IV Q12H Urine cultures grew Proteus Mirabilis - resistant to everything except Amikacin (CRISTOPHER 2) and Imipenem (CRISTOPHER 4) - continue Amikacin 900mg IV Q24H - Stopped Rocephin CXR no acute disease Anoxic encephalopathy Assessment & Plan: s/p cardiac arrest in 05/2015 no acute changes Pt has non spontaneous movements. continue current management. Continue tube feeds- at goal of 60, feedings held at night due to fluid overload Urinary tract infection Assessment & Plan: Resolved Patient afebrile WBC count stable as of 06/22/17 Tylenol 650mg po q6 PEG PRN UA and Urine Cx ordered on 05/28/17 showed gram negative rods --> Proteus Mirabilis was started Primaxin 500mg IV Q6 on 05/30/17-- DC Urinary retention Assessment & Plan: Improved 07/07/17: Catheter flushed, patient output approx. 500mL within one hour post flush. 06/27/17: Continue bladder massages to aid in voiding. 06/25/17: Patient voids with movement. Continue bladder massages to aid in voiding. 06/23/17: Patient will need to have daily bladder massage to allow for complete voiding 06/17/17: Nursing communication placed in: straight catherization with bladder scan> 100ml 06/08: urinary retention yesterday, was given 40mg lasix iv and patient was able to urinate through condom baker Take note condom cath not always securely in place so Is and Os are approximate as patient does wet bed Ordered- new condom catheter on 05/22/17 Flomax 0.4mg PEG daily Proscar 5mg PEG daily continue Bethanecol 50mg PEG TID- started after persistent retention and found to be effective. monitor I's and O's Check bladder scan for residual urine three times weekly Respiratory failure Assessment & Plan: Trach in place, continue daily monitoring for secretions. No change in management at this time. Continue with aggressive suctioning multiple times a day per respiratory therapist. Monitor for signs of respiratory distress Thick secretions Duoneb 3ml INH Q6 and Mucomyst 4ml INH Q6H Robitussin 100mg PEG Q12H Scopolamine 1 patch TD Q3D JOO Repeat CXR on 05/28/17: linear increased consolidative changes in the right mid- lung zone and left lung base which may represent atelectasis and/or infiltrate. Questionable trace left pleural effusion. moderate venous congestion. cardiomegaly. degenerative changes in the spine and shoulders Sacral ulcer Assessment & Plan: Healed Cont with offloading/cushioning/turning Continue frequent turning, protective ointment and skin checks. History of coronary artery disease Assessment & Plan: s/p cardiac stents on 06/13/15 Cont ASA 81mg via PEG daily Cont Coreg 3.125mg PEG BID Cont Plavix 75mg PO daily Seizures Assessment & Plan: Continue Keppra 500mg PEG BID for seizure prophylaxis Monitor for activity Lower extremity edema Assessment & Plan: Improved SCDs in place Pressure ulcer boots on b/l Continue to monitor Prophylactic measure Assessment & Plan: Pepcid 20 mg PEG BID Lovenox 40mg SC daily SCDs and offloading boots continue to turn and reposition q2hrs Feeds increased to 50cc/hr. Per superintendent geophysical laboratory (05/02/17): tube feed goal: Isosource 1.5 @ 50cc/h Will continue tube feeds @ 50 with goal of 60cc/h Continue to monitor medication administrations and clinical presentation weekly labs. vasoline ointment applied to feet prn to prevent hyperkeratosis Stop feeding from 10pm-6am, placed into nursing communication (06/16/17) Held tube feeding this morning (07/19/17) due to projectile vomiting from the previous day. Will discuss further with Dr. Chavis. <Amandeep Chavis H - Last Filed: 07/19/17 09:38> Objective - Vital Signs/Intake and Output Vital Signs (last 24 hours): Temp Pulse Resp BP Pulse Ox 98.5 F 93 H 20 119/68 95 07/19/17 08:27 07/19/17 08:27 07/19/17 08:27 07/19/17 08:27 07/19/17 08:27 Intake and Output: 07/19/17 07/19/17 06:59 18:59 Intake Total 200 Output Total 600 Balance -400 - Medications Medications: Current Medications Acetaminophen (Tylenol 650mg/20.3ml Solution Ud) 650 mg PO Q4 PRN PRN Reason: Temperature Last Admin: 07/18/17 19:26 Dose: 650 mg Albuterol/Ipratropium (Duoneb 3 Mg/0.5 Mg (3 Ml) Ud) 3 ml INH RQ6 PRN PRN Reason: Shortness of Breath Last Admin: 07/19/17 08:24 Dose: 3 ml Aspirin (Aspirin Chewable) 81 mg PEG DAILY [facility] Last Admin: 07/18/17 09:06 Dose: 81 mg Bethanechol Chloride (Urecholine) 50 mg PEG TID [facility] Last Admin: 07/18/17 18:06 Dose: 50 mg Carvedilol (Coreg) 3.125 mg PEG BID [facility] Last Admin: 07/18/17 18:05 Dose: Not Given Clopidogrel Bisulfate (Plavix) 75 mg PEG DAILY [facility] Last Admin: 07/18/17 09:07 Dose: 75 mg Emollient Ointment (Vaseline Oint) 5 gm TOP DAILY PRN PRN Reason: Dry skin Enoxaparin Sodium (Lovenox) 40 mg SC DAILY [facility] Last Admin: 07/18/17 09:06 Dose: 40 mg Famotidine (Pepcid) 20 mg PEG DAILY [facility] Last Admin: 07/18/17 09:07 Dose: 20 mg Finasteride (Proscar) 5 mg PEG DAILY [facility] Last Admin: 07/18/17 09:11 Dose: 5 mg Ciprofloxacin (Cipro 400mg/200ml Dsw) 400 mg in 200 mls @ 133 mls/hr IVPB Q12H [facility] Last Admin: 07/18/17 20:46 Dose: 133 mls/hr Amikacin Sulfate 900 mg/ (Sodium Chloride) 253.6 mls @ 169.067 mls/hr IVPB Q24H [facility] Last Admin: 07/18/17 16:45 Dose: 169.067 mls/hr Levetiracetam (Keppra) 500 mg PEG BID [facility] Last Admin: 07/18/17 18:06 Dose: 500 mg Saccharomyces Boulardii (Florastor) 250 mg PEG DAILY [facility] Last Admin: 07/18/17 09:06 Dose: 250 mg Scopolamine (Transderm-Scop) 1 patch TD Q3D [facility] Last Admin: 07/16/17 20:00 Dose: 1 patch Tamsulosin HCl (Flomax) 0.4 mg PEG DAILY [facility] Last Admin: 07/18/17 09:06 Dose: 0.4 mg - Labs Labs: 07/13/17 08:04 07/13/17 08:04 PT 10.6 SECONDS (9.7-12.2) 11/24/15 14:10 INR 1.0 11/24/15 14:10 APTT 25 SECONDS (21-34) 11/24/15 14:10 Assessment and Plan (1) Prophylactic measure Status: Acute (2) Anoxic encephalopathy Status: Chronic (3) STEMI (ST elevation myocardial infarction) Status: Acute (4) Cardiac arrest Status: Acute (5) Seizures Status: Acute (6) Respiratory failure Status: Chronic Attending/Attestation - Attestation I have personally seen and examined this patient.: Yes I have fully participated in the care of the patient.: Yes I have reviewed all pertinent clinical information, including history, physical exam and plan: Yes Notes (Text): 07/19/17 09:35 Medical Attending: Patient was seen and examined by me. Yesterday the PEG feedings had to be held after the patient was observed coughing and the the PEG was placed to suction drainage. There was some darker material removed this way. Patient remains on IV abx at this time. The portable films suggested atelectasis and not pneumonia. He remains on Amikacin and Cipro at this time. Amandeep Chavis
[2017-07-19] MEDS: Ciprofloxacin 400mg/200ml D5W 400 MG/200 ML BAG IVPB SCH ×2 (08:00→19:38)
[2017-07-19] MEDS: Albuterol-Ipratrop 3 mg / 0.5 (3 ml) UD INH PRN ×2 (08:24→17:02)
[2017-07-19] MEDS: Enoxaparin 40 mg Syringe SC SCH (09:42)
[2017-07-19] MEDS: Saccharomyces Boulardi 250 mg Cap PEG SCH (09:43)
[2017-07-19] MEDS: levETIRAcetam 100 mg/ml (5ml) Oral Syringe PEG SCH ×2 (09:44→18:09)
[2017-07-19] MEDS: Sodium Chloride 0.9% 1,000 ML IV SCH (10:45)
[2017-07-19] MEDS: AMIKACIN SULFATE IVPB SCH (16:34)
[2017-07-19] MEDS: SODIUM CHLORIDE 0.9% IVPB SCH (16:34)
[2017-07-20] MEDS: Sodium Chloride 0.9% 1,000 ML IV SCH (07:34)
[2017-07-20 08:11] LABS: BASO # 0.1 K/uL (0.0-0.2); BASO % 0.3 % (0.0-2.0); EOS # 0.4 K/uL (0.0-0.7); HEMOGLOBIN 9.9 g/dL (12.0-18.0); LYMPH # 1.4 K/uL (1.0-4.3); LYMPH % 7.9 % (20.0-40.0); MEAN CELL VOLUME 88.9 fL (80.0-94.0); MEAN CORPUSCULAR HEMOGLOBIN 28.9 pg (27.0-31.0); MEAN CORPUSCULAR HGB CONC 32.5 g/dL (33.0-37.0); MEAN PLATELET VOLUME 8.5 fL (7.2-11.7); MONO # 1.1 K/uL (0.0-0.8); NEUT # 14.7 K/uL (1.8-7.0); NEUT % 83.8 % (50.0-75.0); PLATELET COUNT 299 K/uL (130-400); RBC 3.41 Mil/uL (4.40-5.90); RED CELL DISTRIBUTION WIDTH 15.6 % (11.5-14.5)
[2017-07-20 08:22] LABS: WHITE BLOOD COUNT 17.6 K/uL (4.8-10.8)
[2017-07-20 08:29] LABS: ALBUMIN 2.8 g/dL (3.5-5.0)
[2017-07-20 08:32] LABS: GFR NON-AFRICAN AMERICAN > 60
[2017-07-20 08:33] LABS: ALT/SGPT 78 U/L (21-72); AST/SGOT 37 U/L (17-59); BLOOD UREA NITROGEN 15 mg/dL (9-20); CALCIUM 7.9 mg/dl (8.6-10.4)
--- NOTE | 2017-07-20 08:36 | CP.PCM.PN ---
<Tyra Yen - Last Filed: 07/20/17 16:03> Subjective - Date & Time of Evaluation Date of Evaluation: 07/20/17 Time of Evaluation: 07:00 - Subjective Subjective: PGY1- medicine note- Dr. Ying's Service Patient seen and examined at bedside. ROS unobtainable due to patient's anoxic brain injury (06/06). Objective - Vital Signs/Intake and Output Vital Signs (last 24 hours): Temp Pulse Resp BP Pulse Ox 98.9 F 91 H 20 115/82 98 07/20/17 08:00 07/20/17 08:00 07/20/17 08:00 07/20/17 08:00 07/20/17 08:00 Intake and Output: 07/20/17 07/20/17 06:59 18:59 Intake Total 1250 Output Total 1100 Balance 150 - Medications Medications: Current Medications Acetaminophen (Tylenol 650mg/20.3ml Solution Ud) 650 mg PO Q4 PRN PRN Reason: Temperature Last Admin: 07/18/17 19:26 Dose: 650 mg Albuterol/Ipratropium (Duoneb 3 Mg/0.5 Mg (3 Ml) Ud) 3 ml INH RQ6 PRN PRN Reason: Shortness of Breath Last Admin: 07/19/17 17:02 Dose: 3 ml Aspirin (Aspirin Chewable) 81 mg PEG DAILY [facility] Last Admin: 07/19/17 09:44 Dose: 81 mg Bethanechol Chloride (Urecholine) 50 mg PEG TID [facility] Last Admin: 07/19/17 18:11 Dose: 50 mg Carvedilol (Coreg) 3.125 mg PEG BID [facility] Last Admin: 07/19/17 18:09 Dose: 3.125 mg Clopidogrel Bisulfate (Plavix) 75 mg PEG DAILY [facility] Last Admin: 07/19/17 09:43 Dose: 75 mg Emollient Ointment (Vaseline Oint) 5 gm TOP DAILY PRN PRN Reason: Dry skin Enoxaparin Sodium (Lovenox) 40 mg SC DAILY [facility] Last Admin: 07/19/17 09:42 Dose: 40 mg Famotidine (Pepcid) 20 mg PEG DAILY [facility] Last Admin: 07/19/17 09:43 Dose: 20 mg Finasteride (Proscar) 5 mg PEG DAILY [facility] Last Admin: 07/19/17 09:44 Dose: 5 mg Ciprofloxacin (Cipro 400mg/200ml Dsw) 400 mg in 200 mls @ 133 mls/hr IVPB Q12H [facility] Last Admin: 07/19/17 19:38 Dose: 133 mls/hr Amikacin Sulfate 900 mg/ (Sodium Chloride) 253.6 mls @ 169.067 mls/hr IVPB Q24H [facility] Last Admin: 07/19/17 16:34 Dose: 169.067 mls/hr Sodium Chloride (Sodium Chloride 0.9%) 1,000 mls @ 50 mls/hr IV .Q20H [facility] Last Admin: 07/20/17 07:34 Dose: Not Given Levetiracetam (Keppra) 500 mg PEG BID [facility] Last Admin: 07/19/17 18:09 Dose: 500 mg Saccharomyces Boulardii (Florastor) 250 mg PEG DAILY [facility] Last Admin: 07/19/17 09:43 Dose: 250 mg Scopolamine (Transderm-Scop) 1 patch TD Q3D [facility] Last Admin: 07/19/17 19:36 Dose: 1 patch Tamsulosin HCl (Flomax) 0.4 mg PEG DAILY [facility] Last Admin: 07/19/17 09:43 Dose: 0.4 mg - Labs Labs: 07/20/17 07:49 07/13/17 08:04 PT 10.6 SECONDS (9.7-12.2) 11/24/15 14:10 INR 1.0 11/24/15 14:10 APTT 25 SECONDS (21-34) 11/24/15 14:10 - Constitutional Appears: Non-toxic, No Acute Distress - Head Exam Head Exam: ATRAUMATIC, NORMAL INSPECTION, NORMOCEPHALIC - Eye Exam Eye Exam: EOMI, Normal appearance, PERRL - ENT Exam ENT Exam: Mucous Membranes Moist, Normal Exam - Neck Exam Additional comments: trach in place - Respiratory Exam Respiratory Exam: Clear to Ausculation Bilateral - Cardiovascular Exam Cardiovascular Exam: REGULAR RHYTHM, RRR. absent: Gallop, Rubs, Murmur - GI/Abdominal Exam GI & Abdominal Exam: Soft, Normal Bowel Sounds - Extremities Exam Extremities Exam: Normal Inspection. absent: Pedal Edema - Neurological Exam Neurological Exam: Altered Additional comments: anoxic brain injury 06/06 - Skin Skin Exam: Dry, Intact, Normal Color, Warm Assessment and Plan - Assessment and Plan (Free Text) Assessment: Hypokalemia Assessment & Plan: K+ on 07/20: 3.0, potassium chloride 40 given in am and 40 in afternoon Leukocytosis Assessment & Plan: WBC: 17.6 on 07/20 continue Cipro and Amikacin follow CBC Febrile Assessment & Plan: 07/20: Patient afebrile since 07/18 07/18: Spiked a temperature overnight 100 degrees Temp 100.9 on 07/12, 103 on 07/16 Tylenol ordered Blood cultures (07/12) growing Stenotrophomonas Maltophilia - sensitive to Cipro - started on 400mg on 07/16 IV Q12H Urine cultures grew Proteus Mirabilis - resistant to everything except Amikacin (day 4) Blood cultures 07/16: no growth after 3 days CXR no acute disease Anoxic encephalopathy Assessment & Plan: s/p cardiac arrest in 05/2015 no acute changes Pt has non spontaneous movements. continue current management. Continue tube feeds- at goal of 60, feedings held at night due to fluid overload Urinary retention Assessment & Plan: 07/20: Urine dark in color, monitor, continue NS at 50 ml per hour 07/07/17: Catheter flushed, patient output approx. 500mL within one hour post flush. 06/27/17: Continue bladder massages to aid in voiding. 06/25/17: Patient voids with movement. Continue bladder massages to aid in voiding. 06/23/17: Patient will need to have daily bladder massage to allow for complete voiding 06/17/17: Nursing communication placed in: straight catherization with bladder scan> 100ml 06/08: urinary retention yesterday, was given 40mg lasix iv and patient was able to urinate through condom baker Take note condom cath not always securely in place so Is and Os are approximate as patient does wet bed Ordered- new condom catheter on 05/22/17 Flomax 0.4mg PEG daily Proscar 5mg PEG daily continue Bethanecol 50mg PEG TID- started after persistent retention and found to be effective. monitor I's and O's Check bladder scan for residual urine three times weekly Respiratory failure Assessment & Plan: Trach in place, continue daily monitoring for secretions. No change in management at this time. Continue with aggressive suctioning multiple times a day per respiratory therapist. Monitor for signs of respiratory distress Thick secretions Duoneb 3ml INH Q6 and Mucomyst 4ml INH Q6H Robitussin 100mg PEG Q12H Scopolamine 1 patch TD Q3D JOO Repeat CXR on 05/28/17: linear increased consolidative changes in the right mid- lung zone and left lung base which may represent atelectasis and/or infiltrate. Questionable trace left pleural effusion. moderate venous congestion. cardiomegaly. degenerative changes in the spine and shoulders Sacral ulcer Assessment & Plan: Healed Cont with offloading/cushioning/turning Continue frequent turning, protective ointment and skin checks. History of coronary artery disease Assessment & Plan: s/p cardiac stents on 06/13/15 Cont ASA 81mg via PEG daily Cont Coreg 3.125mg PEG BID Cont Plavix 75mg PO daily Seizures Assessment & Plan: Continue Keppra 500mg PEG BID for seizure prophylaxis Monitor for activity Lower extremity edema Assessment & Plan: Improved SCDs in place Pressure ulcer boots on b/l Continue to monitor Prophylactic measure Assessment & Plan: Pepcid 20 mg PEG BID Lovenox 40mg SC daily SCDs and offloading boots continue to turn and reposition q2hrs Feeds increased to 50cc/hr. Per extrusion die repairer (05/02/17): tube feed goal: Isosource 1.5 @ 50cc/h Will continue tube feeds @ 50 with goal of 60cc/h Continue to monitor medication administrations and clinical presentation weekly labs. vasoline ointment applied to feet prn to prevent hyperkeratosis Stop feeding from 10pm-6am, placed into nursing communication (06/16/17) Held tube feeding this morning (07/19/17) due to projectile vomiting from the previous day. <Donnell Ying M - Last Filed: 07/21/17 09:40> Objective - Vital Signs/Intake and Output Vital Signs (last 24 hours): Temp Pulse Resp BP Pulse Ox 99.8 F H 87 20 111/71 96 07/21/17 08:29 07/21/17 08:29 07/21/17 08:29 07/21/17 08:29 07/21/17 08:29 Intake and Output: 07/21/17 07/21/17 06:59 18:59 Intake Total 1350 Output Total 1200 Balance 150 - Medications Medications: Current Medications Acetaminophen (Tylenol 650mg/20.3ml Solution Ud) 650 mg PO Q4 PRN PRN Reason: Temperature Last Admin: 07/18/17 19:26 Dose: 650 mg Albuterol/Ipratropium (Duoneb 3 Mg/0.5 Mg (3 Ml) Ud) 3 ml INH RQ6 PRN PRN Reason: Shortness of Breath Last Admin: 07/21/17 07:56 Dose: 3 ml Aspirin (Aspirin Chewable) 81 mg PEG DAILY [facility] Last Admin: 07/20/17 09:39 Dose: 81 mg Bethanechol Chloride (Urecholine) 50 mg PEG TID [facility] Last Admin: 07/20/17 17:34 Dose: 50 mg Carvedilol (Coreg) 3.125 mg PEG BID [facility] Last Admin: 07/20/17 17:34 Dose: 3.125 mg Clopidogrel Bisulfate (Plavix) 75 mg PEG DAILY [facility] Last Admin: 07/20/17 09:39 Dose: 75 mg Emollient Ointment (Vaseline Oint) 5 gm TOP DAILY PRN PRN Reason: Dry skin Enoxaparin Sodium (Lovenox) 40 mg SC DAILY [facility] Last Admin: 07/20/17 09:38 Dose: 40 mg Famotidine (Pepcid) 20 mg PEG DAILY [facility] Last Admin: 07/20/17 09:39 Dose: 20 mg Finasteride (Proscar) 5 mg PEG DAILY [facility] Last Admin: 07/20/17 14:00 Dose: 5 mg Ciprofloxacin (Cipro 400mg/200ml Dsw) 400 mg in 200 mls @ 133 mls/hr IVPB Q12H [facility] Last Admin: 07/21/17 08:21 Dose: 133 mls/hr Amikacin Sulfate 900 mg/ (Sodium Chloride) 253.6 mls @ 169.067 mls/hr IVPB Q24H [facility] Last Admin: 07/20/17 16:34 Dose: 169.067 mls/hr Sodium Chloride (Sodium Chloride 0.9%) 1,000 mls @ 50 mls/hr IV .Q20H [facility] Last Admin: 07/20/17 07:34 Dose: Not Given Levetiracetam (Keppra) 500 mg PEG BID [facility] Last Admin: 07/20/17 17:34 Dose: 500 mg Potassium Chloride (Potassium Chloride Oral Soln) 40 meq PO ONCE ONE Stop: 07/21/17 13:01 Saccharomyces Boulardii (Florastor) 250 mg PEG DAILY [facility] Last Admin: 07/20/17 09:38 Dose: 250 mg Scopolamine (Transderm-Scop) 1 patch TD Q3D [facility] Last Admin: 07/19/17 19:36 Dose: 1 patch Tamsulosin HCl (Flomax) 0.4 mg PEG DAILY [facility] Last Admin: 07/20/17 09:40 Dose: 0.4 mg - Labs Labs: 07/21/17 07:36 07/21/17 07:36 PT 10.6 SECONDS (9.7-12.2) 11/24/15 14:10 INR 1.0 11/24/15 14:10 APTT 25 SECONDS (21-34) 11/24/15 14:10 Attending/Attestation - Attestation I have personally seen and examined this patient.: Yes I have fully participated in the care of the patient.: Yes I have reviewed all pertinent clinical information, including history, physical exam and plan: Yes Notes (Text): 07/21/17 09:40 Patient was seen and examined at bedside with the resident We will continue IV antibiotics for bacteremia and UTI. I discussed the plan of care with the resident I agree with the assessment and plan documented.
[2017-07-20 08:42] LABS: ALB/GLOB RATIO 0.7 (1.0-2.1)
[2017-07-20 09:14] LABS: BANDS 3 % (0-2); EOSINOPHIL 3 % (0-4); LYMPHOCYTE 10 % (20-40); MONOCYTE 4 % (0-10); NEUTROPHIL 80 % (50-75); TOTAL CELLS COUNTED 100
[2017-07-20 09:17] LABS: ANISOCYTOSIS SLIGHT; HYPOCHROMIC SLIGHT; PLATELET ESTIMATE NORMAL (NORMAL); POIKILOCYTOSIS SLIGHT
[2017-07-20] MEDS: Enoxaparin 40 mg Syringe SC SCH (09:38)
[2017-07-20] MEDS: Saccharomyces Boulardi 250 mg Cap PEG SCH (09:38)
[2017-07-20] MEDS: Ciprofloxacin 400mg/200ml D5W 400 MG/200 ML BAG IVPB SCH ×2 (09:39→20:00)
[2017-07-20] MEDS: levETIRAcetam 100 mg/ml (5ml) Oral Syringe PEG SCH ×2 (09:40→17:34)
[2017-07-20] MEDS: Potassium Chloride 20 mEq/15 ml LIQ UD PO ONE ×2 (13:18→13:30)
[2017-07-20] MEDS: Albuterol-Ipratrop 3 mg / 0.5 (3 ml) UD INH PRN (16:13)
[2017-07-20] MEDS: SODIUM CHLORIDE 0.9% IVPB SCH (16:34)
[2017-07-20] MEDS: AMIKACIN SULFATE IVPB SCH (16:34)
[2017-07-21] MEDS: Sodium Chloride 0.9% 1,000 ML IV SCH (02:45)
--- NOTE | 2017-07-21 07:30 | CP.PCM.PN ---
Addendum entered and electronically signed by Tyra Yen 07/21/17 17:11 : As per Dr. Armstrong added flagyl 500 mg TID via peg tube to cover for c dif Original Note: <Tyra Yen - Last Filed: 07/21/17 16:55> Subjective - Date & Time of Evaluation Date of Evaluation: 07/21/17 Time of Evaluation: 07:00 - Subjective Subjective: PGY1- medicine note- Dr. Ying's Service Patient seen and examined at bedside. ROS unobtainable due to patient's anoxic brain injury (06/06). Objective - Vital Signs/Intake and Output Vital Signs (last 24 hours): Temp Pulse Resp BP Pulse Ox 99.9 F H 93 H 18 128/82 97 07/21/17 06:00 07/20/17 23:00 07/20/17 23:00 07/20/17 23:00 07/20/17 23:00 Intake and Output: 07/21/17 07/21/17 06:59 18:59 Intake Total 1350 Output Total 1200 Balance 150 - Medications Medications: Current Medications Acetaminophen (Tylenol 650mg/20.3ml Solution Ud) 650 mg PO Q4 PRN PRN Reason: Temperature Last Admin: 07/18/17 19:26 Dose: 650 mg Albuterol/Ipratropium (Duoneb 3 Mg/0.5 Mg (3 Ml) Ud) 3 ml INH RQ6 PRN PRN Reason: Shortness of Breath Last Admin: 07/20/17 16:13 Dose: 3 ml Aspirin (Aspirin Chewable) 81 mg PEG DAILY [facility] Last Admin: 07/20/17 09:39 Dose: 81 mg Bethanechol Chloride (Urecholine) 50 mg PEG TID [facility] Last Admin: 07/20/17 17:34 Dose: 50 mg Carvedilol (Coreg) 3.125 mg PEG BID [facility] Last Admin: 07/20/17 17:34 Dose: 3.125 mg Clopidogrel Bisulfate (Plavix) 75 mg PEG DAILY [facility] Last Admin: 07/20/17 09:39 Dose: 75 mg Emollient Ointment (Vaseline Oint) 5 gm TOP DAILY PRN PRN Reason: Dry skin Enoxaparin Sodium (Lovenox) 40 mg SC DAILY [facility] Last Admin: 07/20/17 09:38 Dose: 40 mg Famotidine (Pepcid) 20 mg PEG DAILY [facility] Last Admin: 07/20/17 09:39 Dose: 20 mg Finasteride (Proscar) 5 mg PEG DAILY [facility] Last Admin: 07/20/17 14:00 Dose: 5 mg Ciprofloxacin (Cipro 400mg/200ml Dsw) 400 mg in 200 mls @ 133 mls/hr IVPB Q12H [facility] Last Admin: 07/20/17 20:00 Dose: 133 mls/hr Amikacin Sulfate 900 mg/ (Sodium Chloride) 253.6 mls @ 169.067 mls/hr IVPB Q24H [facility] Last Admin: 07/20/17 16:34 Dose: 169.067 mls/hr Sodium Chloride (Sodium Chloride 0.9%) 1,000 mls @ 50 mls/hr IV .Q20H [facility] Last Admin: 07/20/17 07:34 Dose: Not Given Levetiracetam (Keppra) 500 mg PEG BID [facility] Last Admin: 07/20/17 17:34 Dose: 500 mg Saccharomyces Boulardii (Florastor) 250 mg PEG DAILY [facility] Last Admin: 07/20/17 09:38 Dose: 250 mg Scopolamine (Transderm-Scop) 1 patch TD Q3D [facility] Last Admin: 07/19/17 19:36 Dose: 1 patch Tamsulosin HCl (Flomax) 0.4 mg PEG DAILY [facility] Last Admin: 07/20/17 09:40 Dose: 0.4 mg - Labs Labs: 07/20/17 07:49 07/20/17 07:49 PT 10.6 SECONDS (9.7-12.2) 11/24/15 14:10 INR 1.0 11/24/15 14:10 APTT 25 SECONDS (21-34) 11/24/15 14:10 - Constitutional Appears: Well, Non-toxic, No Acute Distress - Head Exam Head Exam: ATRAUMATIC, NORMAL INSPECTION, NORMOCEPHALIC - Eye Exam Eye Exam: EOMI, Normal appearance, PERRL - ENT Exam ENT Exam: Mucous Membranes Moist, Normal Exam - Neck Exam Additional comments: trach in place - Respiratory Exam Respiratory Exam: Clear to Ausculation Bilateral, NORMAL BREATHING PATTERN - Cardiovascular Exam Cardiovascular Exam: REGULAR RHYTHM, RRR. absent: Gallop, Rubs, Murmur - GI/Abdominal Exam GI & Abdominal Exam: Soft, Normal Bowel Sounds - Extremities Exam Extremities Exam: absent: Pedal Edema Additional comments: legs in SCD boots b/l - Neurological Exam Neurological Exam: Altered - Skin Skin Exam: Intact, Normal Color, Warm Assessment and Plan - Assessment and Plan (Free Text) Assessment: Hypokalemia Assessment & Plan: K+ on 07/21: 3.0, potassium chloride 40 given in am and 40 in afternoon K+ on 07/20: 3.0, potassium chloride 40 given in am and 40 in afternoon Leukocytosis Assessment & Plan: 07/21: WBC increased to 20.8 f/u c dif culture f/u cxray WBC: 17.6 on 07/20 continue Cipro and Amikacin follow CBC Febrile Assessment & Plan: 07/21: Tmax : 99.9 at 6am 07/20: Patient afebrile since 07/18 07/18: Spiked a temperature overnight 100 degrees Temp 100.9 on 07/12, 103 on 07/16 Tylenol ordered Blood cultures (07/12) growing Stenotrophomonas Maltophilia - sensitive to Cipro - started on 400mg on 07/16 IV Q12H Urine cultures grew Proteus Mirabilis - resistant to everything except Amikacin (day 4) Blood cultures 07/16: no growth after 3 days CXR no acute disease Anoxic encephalopathy Assessment & Plan: s/p cardiac arrest in 05/2015 no acute changes Pt has non spontaneous movements. continue current management. Continue tube feeds- goal of 60ml/hr, feedings held at night due to fluid overload Urinary retention Assessment & Plan: 07/21: NS stopped because tube feeds restarted 07/20: Urine dark in color, monitor, continue NS at 50 ml per hour 07/07/17: Catheter flushed, patient output approx. 500mL within one hour post flush. 06/27/17: Continue bladder massages to aid in voiding. 06/25/17: Patient voids with movement. Continue bladder massages to aid in voiding. 06/23/17: Patient will need to have daily bladder massage to allow for complete voiding 06/17/17: Nursing communication placed in: straight catherization with bladder scan> 100ml 06/08: urinary retention yesterday, was given 40mg lasix iv and patient was able to urinate through condom baker Take note condom cath not always securely in place so Is and Os are approximate as patient does wet bed Ordered- new condom catheter on 05/22/17 Flomax 0.4mg PEG daily Proscar 5mg PEG daily continue Bethanecol 50mg PEG TID- started after persistent retention and found to be effective. monitor I's and O's Check bladder scan for residual urine three times weekly Respiratory failure Assessment & Plan: Trach in place, continue daily monitoring for secretions. No change in management at this time. Continue with aggressive suctioning multiple times a day per respiratory therapist. Monitor for signs of respiratory distress Thick secretions Duoneb 3ml INH Q6 and Mucomyst 4ml INH Q6H Robitussin 100mg PEG Q12H Scopolamine 1 patch TD Q3D JOO Repeat CXR on 05/28/17: linear increased consolidative changes in the right mid- lung zone and left lung base which may represent atelectasis and/or infiltrate. Questionable trace left pleural effusion. moderate venous congestion. cardiomegaly. degenerative changes in the spine and shoulders Sacral ulcer Assessment & Plan: Healed Cont with offloading/cushioning/turning Continue frequent turning, protective ointment and skin checks. History of coronary artery disease Assessment & Plan: s/p cardiac stents on 06/13/15 Cont ASA 81mg via PEG daily Cont Coreg 3.125mg PEG BID Cont Plavix 75mg PO daily Seizures Assessment & Plan: Continue Keppra 500mg PEG BID for seizure prophylaxis Monitor for activity Lower extremity edema Assessment & Plan: Improved SCDs in place Pressure ulcer boots on b/l Continue to monitor Prophylactic measure Assessment & Plan: Pepcid 20 mg PEG BID Lovenox 40mg SC daily SCDs and offloading boots continue to turn and reposition q2hrs Continue to monitor medication administrations and clinical presentation weekly labs. vasoline ointment applied to feet prn to prevent hyperkeratosis Please hold feeding from 10pm-6am, placed into nursing communication tube feedings restarted (07/21): Jevity 1.5 @ 40ml/hr , increase 10ml with goal of 60ml <Donnell Ying - Last Filed: 07/22/17 13:07> Objective - Vital Signs/Intake and Output Vital Signs (last 24 hours): Temp Pulse Resp BP Pulse Ox 99.5 F 82 21 153/86 H 99 07/22/17 07:45 07/22/17 07:45 07/22/17 07:45 07/22/17 07:45 07/22/17 07:45 Intake and Output: 07/22/17 07/22/17 06:59 18:59 Intake Total 820 Output Total 450 Balance 370 - Medications Medications: Current Medications Acetaminophen (Tylenol 650mg/20.3ml Solution Ud) 650 mg PO Q4 PRN PRN Reason: Temperature Last Admin: 07/18/17 19:26 Dose: 650 mg Albuterol/Ipratropium (Duoneb 3 Mg/0.5 Mg (3 Ml) Ud) 3 ml INH RQ6 PRN PRN Reason: Shortness of Breath Last Admin: 07/21/17 19:49 Dose: 3 ml Aspirin (Aspirin Chewable) 81 mg PEG DAILY [facility] Last Admin: 07/22/17 09:24 Dose: 81 mg Bethanechol Chloride (Urecholine) 50 mg PEG TID [facility] Last Admin: 07/22/17 09:25 Dose: 50 mg Carvedilol (Coreg) 3.125 mg PEG BID [facility] Last Admin: 07/22/17 09:00 Dose: 3.125 mg Clopidogrel Bisulfate (Plavix) 75 mg PEG DAILY [facility] Last Admin: 07/22/17 09:26 Dose: 75 mg Emollient Ointment (Vaseline Oint) 5 gm TOP DAILY PRN PRN Reason: Dry skin Enoxaparin Sodium (Lovenox) 40 mg SC DAILY [facility] Last Admin: 07/22/17 09:00 Dose: 40 mg Famotidine (Pepcid) 20 mg PEG DAILY [facility] Last Admin: 07/22/17 09:26 Dose: 20 mg Finasteride (Proscar) 5 mg PEG DAILY [facility] Last Admin: 07/22/17 09:26 Dose: 5 mg Ciprofloxacin (Cipro 400mg/200ml Dsw) 400 mg in 200 mls @ 133 mls/hr IVPB Q12H [facility] Last Admin: 07/22/17 07:57 Dose: 133 mls/hr Amikacin Sulfate 900 mg/ (Sodium Chloride) 253.6 mls @ 169.067 mls/hr IVPB Q24H [facility] Last Admin: 07/21/17 16:00 Dose: 169.067 mls/hr Potassium Chloride 40 meq/ (Sodium Chloride) 1,020 mls @ 100 mls/hr IV .[id number] [facility] Last Admin: 07/22/17 12:12 Dose: 100 mls/hr Levetiracetam (Keppra) 500 mg PEG BID [facility] Last Admin: 07/22/17 09:26 Dose: 500 mg Metronidazole (Flagyl) 500 mg PEG TID [facility] Last Admin: 07/22/17 09:26 Dose: 500 mg Saccharomyces Boulardii (Florastor) 250 mg PEG DAILY [facility] Last Admin: 07/22/17 09:24 Dose: 250 mg Scopolamine (Transderm-Scop) 1 patch TD Q3D [facility] Last Admin: 07/19/17 19:36 Dose: 1 patch Tamsulosin HCl (Flomax) 0.4 mg PEG DAILY [facility] Last Admin: 07/22/17 09:26 Dose: 0.4 mg - Labs Labs: 07/22/17 07:07 07/22/17 07:07 PT 10.6 SECONDS (9.7-12.2) 11/24/15 14:10 INR 1.0 11/24/15 14:10 APTT 25 SECONDS (21-34) 11/24/15 14:10 Attending/Attestation - Attestation I have personally seen and examined this patient.: Yes I have fully participated in the care of the patient.: Yes I have reviewed all pertinent clinical information, including history, physical exam and plan: Yes Notes (Text): 07/22/17 13:06 Patient was seen and examined at bedside.. Follow-up ID recommendations regarding antibiotic management We'll consider CT scan of the abdomen if no improvement I discussed the plan of care with the resident and agree with the assessment and plan documented.
[2017-07-21 07:55] LABS: BASO # 0.1 K/uL (0.0-0.2); BASO % 0.3 % (0.0-2.0); EOS # 0.2 K/uL (0.0-0.7); EOS % 1.1 % (0.0-4.0); LYMPH # 1.2 K/uL (1.0-4.3); LYMPH % 5.9 % (20.0-40.0); MEAN CELL VOLUME 88.3 fL (80.0-94.0); MEAN CORPUSCULAR HEMOGLOBIN 28.5 pg (27.0-31.0); MEAN CORPUSCULAR HGB CONC 32.2 g/dL (33.0-37.0); MEAN PLATELET VOLUME 7.9 fL (7.2-11.7); MONO # 1.5 K/uL (0.0-0.8); MONO % 7.1 % (0.0-10.0); NEUT # 17.8 K/uL (1.8-7.0); NEUT % 85.6 % (50.0-75.0); PLATELET COUNT 344 K/uL (130-400); RBC 3.16 Mil/uL (4.40-5.90); RED CELL DISTRIBUTION WIDTH 15.3 % (11.5-14.5); WHITE BLOOD COUNT 20.8 K/uL (4.8-10.8)
[2017-07-21] MEDS: Albuterol-Ipratrop 3 mg / 0.5 (3 ml) UD INH PRN ×3 (07:56→19:49)
[2017-07-21 08:08] LABS: ALBUMIN 2.7 g/dL (3.5-5.0)
[2017-07-21 08:11] LABS: ALB/GLOB RATIO 0.6 (1.0-2.1); AST/SGOT 37 U/L (17-59); BLOOD UREA NITROGEN 13 mg/dL (9-20); GFR NON-AFRICAN AMERICAN > 60
[2017-07-21 08:12] LABS: ALT/SGPT 62 U/L (21-72); CALCIUM 7.7 mg/dl (8.6-10.4)
[2017-07-21] MEDS: Ciprofloxacin 400mg/200ml D5W 400 MG/200 ML BAG IVPB SCH ×2 (08:21→20:18)
[2017-07-21 08:55] LABS: ANISOCYTOSIS SLIGHT; BANDS 1 % (0-2); EOSINOPHIL 2 % (0-4); LYMPHOCYTE 5 % (20-40); MONOCYTE 6 % (0-10); NEUTROPHIL 86 % (50-75); PLATELET ESTIMATE NORMAL (NORMAL); POIKILOCYTOSIS SLIGHT; TOTAL CELLS COUNTED 100
[2017-07-21 08:56] LABS: HYPOCHROMIC SLIGHT; TOXIC GRANULATION PRESENT
[2017-07-21] MEDS: levETIRAcetam 100 mg/ml (5ml) Oral Syringe PEG SCH ×2 (10:04→17:51)
[2017-07-21] MEDS: Enoxaparin 40 mg Syringe SC SCH (10:05)
[2017-07-21] MEDS: Saccharomyces Boulardi 250 mg Cap PEG SCH (10:06)
--- NOTE | 2017-07-21 12:44 | RAD ---
HISTORY: increasing white count, r/o aspiration pneumonia COMPARISON: Chest x-ray performed 07/18/17 TECHNIQUE: Chest, one view. FINDINGS: Tracheostomy tube. LUNGS: Opacity within the lingula may reflect pneumonia or atelectasis. Linear atelectasis, right mid lung. PLEURA: No significant pleural effusion identified. No definite pneumothorax . CARDIOVASCULAR: Cardiomegaly. OSSEOUS STRUCTURES: Degenerative changes. VISUALIZED UPPER ABDOMEN: Elevation of the right hemidiaphragm. OTHER FINDINGS: None. IMPRESSION: Tracheostomy tube. Opacity within the lingula may reflect pneumonia or atelectasis. Linear atelectasis, right mid lung. Cardiomegaly.
[2017-07-21] MEDS: AMIKACIN SULFATE IVPB SCH (16:00)
[2017-07-21] MEDS: SODIUM CHLORIDE 0.9% IVPB SCH (16:00)
[2017-07-22 07:31] LABS: ALBUMIN 2.7 g/dL (3.5-5.0); BASO % 0.2 % (0.0-2.0); EOS # 0.3 K/uL (0.0-0.7); EOS % 1.6 % (0.0-4.0); HEMOGLOBIN 8.7 g/dL (12.0-18.0); LYMPH # 2.1 K/uL (1.0-4.3); LYMPH % 10.4 % (20.0-40.0); MEAN CELL VOLUME 87.9 fL (80.0-94.0); MEAN CORPUSCULAR HEMOGLOBIN 28.8 pg (27.0-31.0); MEAN CORPUSCULAR HGB CONC 32.7 g/dL (33.0-37.0); MEAN PLATELET VOLUME 7.7 fL (7.2-11.7); MONO # 1.9 K/uL (0.0-0.8); MONO % 9.2 % (0.0-10.0); NEUT % 78.6 % (50.0-75.0); RBC 3.01 Mil/uL (4.40-5.90); RED CELL DISTRIBUTION WIDTH 15.4 % (11.5-14.5); WHITE BLOOD COUNT 20.3 K/uL (4.8-10.8)
[2017-07-22 07:34] LABS: ALB/GLOB RATIO 0.6 (1.0-2.1); ALT/SGPT 62 U/L (21-72); AST/SGOT 32 U/L (17-59); BLOOD UREA NITROGEN 10 mg/dL (9-20); GFR NON-AFRICAN AMERICAN > 60
[2017-07-22 07:35] LABS: CALCIUM 7.8 mg/dl (8.6-10.4)
[2017-07-22] MEDS: Ciprofloxacin 400mg/200ml D5W 400 MG/200 ML BAG IVPB SCH ×2 (07:57→20:12)
[2017-07-22] MEDS: Enoxaparin 40 mg Syringe SC SCH (09:00)
--- NOTE | 2017-07-22 09:13 | CP.PCM.PN ---
<Tyra Yen - Last Filed: 07/22/17 17:15> Subjective - Date & Time of Evaluation Date of Evaluation: 07/22/17 Time of Evaluation: 07:00 - Subjective Subjective: PGY-1 Medicine Note- Dr. Ying's Service Patient seen and examined at bedside. ROS unobtainable due to patient's anoxic brain injury (06/06). Objective - Vital Signs/Intake and Output Vital Signs (last 24 hours): Temp Pulse Resp BP Pulse Ox 99.5 F 82 21 153/86 H 99 07/22/17 07:45 07/22/17 07:45 07/22/17 07:45 07/22/17 07:45 07/22/17 07:45 Intake and Output: 07/22/17 07/22/17 06:59 18:59 Intake Total 820 Output Total 450 Balance 370 - Medications Medications: Current Medications Acetaminophen (Tylenol 650mg/20.3ml Solution Ud) 650 mg PO Q4 PRN PRN Reason: Temperature Last Admin: 07/18/17 19:26 Dose: 650 mg Albuterol/Ipratropium (Duoneb 3 Mg/0.5 Mg (3 Ml) Ud) 3 ml INH RQ6 PRN PRN Reason: Shortness of Breath Last Admin: 07/21/17 19:49 Dose: 3 ml Aspirin (Aspirin Chewable) 81 mg PEG DAILY [facility] Last Admin: 07/21/17 10:05 Dose: 81 mg Bethanechol Chloride (Urecholine) 50 mg PEG TID [facility] Last Admin: 07/21/17 17:52 Dose: 50 mg Carvedilol (Coreg) 3.125 mg PEG BID [facility] Last Admin: 07/21/17 10:05 Dose: 3.125 mg Clopidogrel Bisulfate (Plavix) 75 mg PEG DAILY [facility] Last Admin: 07/21/17 10:05 Dose: 75 mg Emollient Ointment (Vaseline Oint) 5 gm TOP DAILY PRN PRN Reason: Dry skin Enoxaparin Sodium (Lovenox) 40 mg SC DAILY [facility] Last Admin: 07/21/17 10:05 Dose: 40 mg Famotidine (Pepcid) 20 mg PEG DAILY [facility] Last Admin: 07/21/17 10:06 Dose: 20 mg Finasteride (Proscar) 5 mg PEG DAILY [facility] Last Admin: 07/21/17 10:04 Dose: 5 mg Ciprofloxacin (Cipro 400mg/200ml Dsw) 400 mg in 200 mls @ 133 mls/hr IVPB Q12H [facility] Last Admin: 07/22/17 07:57 Dose: 133 mls/hr Amikacin Sulfate 900 mg/ (Sodium Chloride) 253.6 mls @ 169.067 mls/hr IVPB Q24H [facility] Last Admin: 07/21/17 16:00 Dose: 169.067 mls/hr Potassium Chloride (Potassium Chloride 20 Meq/100 Ml) 20 meq in 100 mls @ 50 mls/hr IVPB ONCE ONE Stop: 07/22/17 11:04 Potassium Chloride (Potassium Chloride 20 Meq/100 Ml) 20 meq in 100 mls @ 50 mls/hr IVPB ONCE ONE Stop: 07/22/17 14:29 Levetiracetam (Keppra) 500 mg PEG BID [facility] Last Admin: 07/21/17 17:51 Dose: 500 mg Metronidazole (Flagyl) 500 mg PEG TID [facility] Last Admin: 07/21/17 17:52 Dose: 500 mg Potassium Chloride (Potassium Chloride Oral Soln) 40 meq PEG ONCE ONE Stop: 07/22/17 12:01 Saccharomyces Boulardii (Florastor) 250 mg PEG DAILY [facility] Last Admin: 07/21/17 10:06 Dose: 250 mg Scopolamine (Transderm-Scop) 1 patch TD Q3D [facility] Last Admin: 07/19/17 19:36 Dose: 1 patch Tamsulosin HCl (Flomax) 0.4 mg PEG DAILY [facility] Last Admin: 07/21/17 10:05 Dose: 0.4 mg - Labs Labs: 07/22/17 07:07 07/22/17 07:07 PT 10.6 SECONDS (9.7-12.2) 11/24/15 14:10 INR 1.0 11/24/15 14:10 APTT 25 SECONDS (21-34) 11/24/15 14:10 - Constitutional Appears: No Acute Distress - Head Exam Head Exam: ATRAUMATIC, NORMAL INSPECTION, NORMOCEPHALIC - Eye Exam Eye Exam: EOMI - ENT Exam ENT Exam: Mucous Membranes Moist - Neck Exam Additional comments: tracheostomy in place - Respiratory Exam Respiratory Exam: Clear to Ausculation Bilateral, NORMAL BREATHING PATTERN - Cardiovascular Exam Cardiovascular Exam: REGULAR RHYTHM, RRR. absent: Gallop, Rubs, Murmur - GI/Abdominal Exam GI & Abdominal Exam: Soft, Normal Bowel Sounds. absent: Firm - Neurological Exam Neurological Exam: Altered - Skin Skin Exam: Intact, Normal Color, Warm Assessment and Plan - Assessment and Plan (Free Text) Assessment: Hypokalemia Assessment & Plan: K+ on 07/22: 2.8, KCl 40 via peg and KCl 20 IV given in am and 40 via ped and 20 IV in afternoon K+ on 07/21: 3.0, KCl 40 given in am and 40 in afternoon K+ on 07/20: 3.0, KCl 40 given in am and 40 in afternoon Leukocytosis Assessment & Plan: 07/22: WBC 20.3 07/21: WBC increased to 20.8 f/u c dif culture f/u CT of abdomen and pelvis with po and iv contrast cxray 07/21: tracheostomy tube, opacity within the lingula may refelct pneumonia or atelectasis. Linear atelectasis, right mid lung. cardiomegaly WBC: 17.6 on 07/20 continue Cipro and Amikacin As per Dr. Armstrong flagyl 500 mg TID via peg tube to cover for c dif (started on 07/21) follow CBC midline access ordered on 07/22 Febrile Assessment & Plan: 07/22: Tmax : 100 at 24:00 07/21: Tmax : 99.9 at 6am 07/20: Patient afebrile since 07/18 07/18: Spiked a temperature overnight 100 degrees Temp 100.9 on 07/12, 103 on 07/16 Tylenol ordered Blood cultures (07/12) growing Stenotrophomonas Maltophilia - sensitive to Cipro - started on 400mg on 07/16 IV Q12H Urine cultures grew Proteus Mirabilis - resistant to everything except Amikacin (day 4) Blood cultures 07/16: no growth after 3 days CXR no acute disease Anoxic encephalopathy Assessment & Plan: s/p cardiac arrest in 05/2015 no acute changes Pt has non spontaneous movements. continue current management. Continue tube feeds- goal of 60ml/hr, feedings held at night due to fluid overload Urinary retention Assessment & Plan: 07/21: NS stopped because tube feeds restarted 07/20: Urine dark in color, monitor, continue NS at 50 ml per hour 07/07/17: Catheter flushed, patient output approx. 500mL within one hour post flush. 06/27/17: Continue bladder massages to aid in voiding. 06/25/17: Patient voids with movement. Continue bladder massages to aid in voiding. 06/23/17: Patient will need to have daily bladder massage to allow for complete voiding 06/17/17: Nursing communication placed in: straight catherization with bladder scan> 100ml 06/08: urinary retention yesterday, was given 40mg lasix iv and patient was able to urinate through condom baker Take note condom cath not always securely in place so Is and Os are approximate as patient does wet bed Ordered- new condom catheter on 05/22/17 Flomax 0.4mg PEG daily Proscar 5mg PEG daily continue Bethanecol 50mg PEG TID- started after persistent retention and found to be effective. monitor I's and O's Check bladder scan for residual urine three times weekly Respiratory failure Assessment & Plan: Trach in place, continue daily monitoring for secretions. No change in management at this time. Continue with aggressive suctioning multiple times a day per respiratory therapist. Monitor for signs of respiratory distress Thick secretions Duoneb 3ml INH Q6 and Mucomyst 4ml INH Q6H Robitussin 100mg PEG Q12H Scopolamine 1 patch TD Q3D JOO Repeat CXR on 05/28/17: linear increased consolidative changes in the right mid- lung zone and left lung base which may represent atelectasis and/or infiltrate. Questionable trace left pleural effusion. moderate venous congestion. cardiomegaly. degenerative changes in the spine and shoulders Sacral ulcer Assessment & Plan: Healed Cont with offloading/cushioning/turning Continue frequent turning, protective ointment and skin checks. History of coronary artery disease Assessment & Plan: s/p cardiac stents on 06/13/15 Cont ASA 81mg via PEG daily Cont Coreg 3.125mg PEG BID Cont Plavix 75mg PO daily Seizures Assessment & Plan: Continue Keppra 500mg PEG BID for seizure prophylaxis Monitor for activity Lower extremity edema Assessment & Plan: Improved SCDs in place Pressure ulcer boots on b/l Continue to monitor Prophylactic measure Assessment & Plan: Pepcid 20 mg PEG BID Lovenox 40mg SC daily SCDs and offloading boots continue to turn and reposition q2hrs Continue to monitor medication administrations and clinical presentation weekly labs. vasoline ointment applied to feet prn to prevent hyperkeratosis Please hold feeding from 10pm-6am, placed into nursing communication tube feedings held (07/22) until ct abdomen comes back NS @75ml/hr <Donnell Ying M - Last Filed: 07/23/17 15:14> Objective - Vital Signs/Intake and Output Vital Signs (last 24 hours): Temp Pulse Resp BP Pulse Ox 99.1 F 80 18 106/62 98 07/23/17 08:07 07/23/17 08:07 07/23/17 08:07 07/23/17 08:07 07/23/17 08:07 Intake and Output: 07/23/17 07/23/17 06:59 18:59 Intake Total 1300 2450 Output Total 1000 1000 Balance 300 1450 - Medications Medications: Current Medications Acetaminophen (Tylenol 650mg/20.3ml Solution Ud) 650 mg PO Q4 PRN PRN Reason: Temperature Last Admin: 07/18/17 19:26 Dose: 650 mg Albuterol/Ipratropium (Duoneb 3 Mg/0.5 Mg (3 Ml) Ud) 3 ml INH RQ6 PRN PRN Reason: Shortness of Breath Last Admin: 07/23/17 13:29 Dose: 3 ml Aspirin (Aspirin Chewable) 81 mg PEG DAILY [facility] Last Admin: 07/23/17 09:22 Dose: 81 mg Bethanechol Chloride (Urecholine) 50 mg PEG TID [facility] Last Admin: 07/23/17 13:00 Dose: 50 mg Carvedilol (Coreg) 3.125 mg PEG BID [facility] Last Admin: 07/23/17 09:22 Dose: 3.125 mg Clopidogrel Bisulfate (Plavix) 75 mg PEG DAILY [facility] Last Admin: 07/23/17 09:23 Dose: 75 mg Emollient Ointment (Vaseline Oint) 5 gm TOP DAILY PRN PRN Reason: Dry skin Enoxaparin Sodium (Lovenox) 40 mg SC DAILY [facility] Last Admin: 07/23/17 09:23 Dose: 40 mg Famotidine (Pepcid) 20 mg PEG DAILY [facility] Last Admin: 07/23/17 09:21 Dose: 20 mg Finasteride (Proscar) 5 mg PEG DAILY [facility] Last Admin: 07/23/17 10:45 Dose: 5 mg Ciprofloxacin (Cipro 400mg/200ml Dsw) 400 mg in 200 mls @ 133 mls/hr IVPB Q12H [facility] Last Admin: 07/23/17 08:20 Dose: 133 mls/hr Amikacin Sulfate 900 mg/ (Sodium Chloride) 253.6 mls @ 169.067 mls/hr IVPB Q24H [facility] Last Admin: 07/22/17 16:40 Dose: 169.067 mls/hr Meropenem 1 gm/ Sodium (Chloride) 100 mls @ 100 mls/hr IVPB Q8 [facility] Last Admin: 07/23/17 13:18 Dose: 100 mls/hr Sodium Chloride (Sodium Chloride 0.9%) 1,000 mls @ 75 mls/hr IV .[id number] [facility] Last Admin: 07/23/17 14:53 Dose: 75 mls/hr Levetiracetam (Keppra) 500 mg PEG BID [facility] Last Admin: 07/23/17 09:24 Dose: 500 mg Metronidazole (Flagyl) 500 mg PEG TID [facility] Last Admin: 07/23/17 13:02 Dose: 500 mg Saccharomyces Boulardii (Florastor) 250 mg PEG DAILY [facility] Last Admin: 07/23/17 09:23 Dose: 250 mg Scopolamine (Transderm-Scop) 1 patch TD Q3D [facility] Last Admin: 07/22/17 20:11 Dose: 1 patch Tamsulosin HCl (Flomax) 0.4 mg PEG DAILY [facility] Last Admin: 07/23/17 09:22 Dose: 0.4 mg - Labs Labs: 07/23/17 07:36 07/23/17 07:36 PT 10.6 SECONDS (9.7-12.2) 11/24/15 14:10 INR 1.0 11/24/15 14:10 APTT 25 SECONDS (21-34) 11/24/15 14:10 Attending/Attestation - Attestation I have personally seen and examined this patient.: Yes I have fully participated in the care of the patient.: Yes I have reviewed all pertinent clinical information, including history, physical exam and plan: Yes Notes (Text): 07/23/17 15:13 Patient was seen and examined at bedside with the resident Continue IV antibiotics Replace electrolytes Check stool for C. difficile Discussed the plan of care with the resident and agree with the assessment and plan documented.
[2017-07-22] MEDS: Saccharomyces Boulardi 250 mg Cap PEG SCH (09:24)
[2017-07-22] MEDS: levETIRAcetam 100 mg/ml (5ml) Oral Syringe PEG SCH ×2 (09:26→17:34)
[2017-07-22] MEDS: SODIUM CHLORIDE 0.9% IVPB SCH (16:40)
[2017-07-22] MEDS: AMIKACIN SULFATE IVPB SCH (16:40)
--- NOTE | 2017-07-22 16:59 | CT ---
PROCEDURE: CT Abdomen and Pelvis with contrast HISTORY: abdominal distention and vomiting COMPARISON: None. TECHNIQUE: Contrast dose: 100 mL Visipaque 320 Radiation dose: Total exam DLP = 1167.50 mGy-cm. This CT exam was performed using one or more of the following dose reduction techniques: Automated exposure control, adjustment of the mA and/or kV according to patient size, and/or use of iterative reconstruction technique. FINDINGS: LOWER THORAX: Bilateral lower lobe subsegmental atelectasis. Trace bilateral pleural effusion. LIVER: Normal size, contour and attenuation. No mass. Several nodular calcifications consistent with calcified granulomata. No biliary dilatation. GALLBLADDER AND BILE DUCTS: Gallbladder wall diffusely thickened and enhancing suspicious for cholecystitis. Recommend correlation with ultrasound examination. PANCREAS: Unremarkable. No gross lesion or ductal dilatation. SPLEEN: Unremarkable. ADRENALS: Unremarkable. No mass. KIDNEYS AND URETERS: Unremarkable. No hydronephrosis. No solid mass. VASCULATURE: Unremarkable. No aortic aneurysm. BOWEL: No bowel obstruction. No abnormal bowel loops identified. Percutaneous gastrostomy tube noted. APPENDIX: Not positively identified. No secondary findings to suggest acute appendicitis. PERITONEUM: Unremarkable. No free fluid. No free air. LYMPH NODES: Unremarkable. No enlarged lymph nodes. BLADDER: Unremarkable. REPRODUCTIVE: Unremarkable prostate. BONES: No acute fracture. Severe degenerative disc disease at L4-5 and L5-S1 with grade 1 retrolisthesis at L5-S1. Lumbar levoscoliosis. OTHER FINDINGS: Mild bilateral gynecomastia. IMPRESSION: Gallbladder wall thickening with diffuse enhancement. Possible cholecystitis. Recommend correlation with ultrasound examination. Percutaneous gastrostomy. Bilateral lower lobe subsegmental atelectasis. Trace bilateral pleural effusion. Additional minor findings as above.
[2017-07-22] MEDS: Albuterol-Ipratrop 3 mg / 0.5 (3 ml) UD INH PRN (18:01)
[2017-07-22 18:03] LABS: ALBUMIN 2.7 g/dL (3.5-5.0)
[2017-07-22 18:05] LABS: GFR NON-AFRICAN AMERICAN > 60
[2017-07-22 18:06] LABS: ALB/GLOB RATIO 0.6 (1.0-2.1); ALT/SGPT 56 U/L (21-72); AST/SGOT 31 U/L (17-59); BLOOD UREA NITROGEN 8 mg/dL (9-20)
[2017-07-22 18:07] LABS: CALCIUM 7.8 mg/dl (8.6-10.4)
--- NOTE | 2017-07-22 18:08 | CP.PCM.PN ---
Subjective - Date & Time of Evaluation Date of Evaluation: 07/22/17 Time of Evaluation: 06:00 - Subjective Subjective: Dictated Objective - Vital Signs/Intake and Output Vital Signs (last 24 hours): Temp Pulse Resp BP Pulse Ox 98.5 F 79 20 128/87 99 07/22/17 16:00 07/22/17 16:00 07/22/17 16:00 07/22/17 16:00 07/22/17 16:00 Intake and Output: 07/22/17 07/22/17 06:59 18:59 Intake Total 820 450 Output Total 450 650 Balance 370 -200 - Medications Medications: Current Medications Acetaminophen (Tylenol 650mg/20.3ml Solution Ud) 650 mg PO Q4 PRN PRN Reason: Temperature Last Admin: 07/18/17 19:26 Dose: 650 mg Albuterol/Ipratropium (Duoneb 3 Mg/0.5 Mg (3 Ml) Ud) 3 ml INH RQ6 PRN PRN Reason: Shortness of Breath Last Admin: 07/22/17 18:01 Dose: 3 ml Aspirin (Aspirin Chewable) 81 mg PEG DAILY [facility] Last Admin: 07/22/17 09:24 Dose: 81 mg Bethanechol Chloride (Urecholine) 50 mg PEG TID [facility] Last Admin: 07/22/17 17:34 Dose: 50 mg Carvedilol (Coreg) 3.125 mg PEG BID [facility] Last Admin: 07/22/17 17:42 Dose: 3.125 mg Clopidogrel Bisulfate (Plavix) 75 mg PEG DAILY [facility] Last Admin: 07/22/17 09:26 Dose: 75 mg Emollient Ointment (Vaseline Oint) 5 gm TOP DAILY PRN PRN Reason: Dry skin Enoxaparin Sodium (Lovenox) 40 mg SC DAILY [facility] Last Admin: 07/22/17 09:00 Dose: 40 mg Famotidine (Pepcid) 20 mg PEG DAILY [facility] Last Admin: 07/22/17 09:26 Dose: 20 mg Finasteride (Proscar) 5 mg PEG DAILY [facility] Last Admin: 07/22/17 09:26 Dose: 5 mg Ciprofloxacin (Cipro 400mg/200ml Dsw) 400 mg in 200 mls @ 133 mls/hr IVPB Q12H [facility] Last Admin: 07/22/17 07:57 Dose: 133 mls/hr Amikacin Sulfate 900 mg/ (Sodium Chloride) 253.6 mls @ 169.067 mls/hr IVPB Q24H [facility] Last Admin: 07/22/17 16:40 Dose: 169.067 mls/hr Potassium Chloride 40 meq/ (Sodium Chloride) 1,020 mls @ 100 mls/hr IV .[id number] [facility] Last Admin: 07/22/17 12:12 Dose: 100 mls/hr Meropenem 1 gm/ Sodium (Chloride) 100 mls @ 100 mls/hr IVPB Q8 [facility] Levetiracetam (Keppra) 500 mg PEG BID [facility] Last Admin: 07/22/17 17:34 Dose: 500 mg Metronidazole (Flagyl) 500 mg PEG TID [facility] Last Admin: 07/22/17 17:34 Dose: 500 mg Saccharomyces Boulardii (Florastor) 250 mg PEG DAILY [facility] Last Admin: 07/22/17 09:24 Dose: 250 mg Scopolamine (Transderm-Scop) 1 patch TD Q3D [facility] Last Admin: 07/19/17 19:36 Dose: 1 patch Tamsulosin HCl (Flomax) 0.4 mg PEG DAILY [facility] Last Admin: 07/22/17 09:26 Dose: 0.4 mg - Labs Labs: 07/22/17 07:07 07/22/17 17:46 PT 10.6 SECONDS (9.7-12.2) 11/24/15 14:10 INR 1.0 11/24/15 14:10 APTT 25 SECONDS (21-34) 11/24/15 14:10
[2017-07-22] MEDS: Meropenem 1 GM in Sodium Chloride 0.9% 100 ML IVPB SCH (22:17)
--- NOTE | 2017-07-23 03:18 | PN ---
DATE: SUBJECTIVE: I was asked to see him again as his white count has jumped over and he was running fevers. I was away, he is on Cipro; however, temperature today is 98.5, pulse 79, blood pressure 128/87, respirations are 20. He has anoxic encephalopathy and has not able to get any review of system and remains in bed. PHYSICAL EXAMINATION: HEENT: Head is atraumatic. NECK: Supple. Trach site is unremarkable. LUNGS: Clear. No crackles or rales present. HEART: S1 and S2, regular. ABDOMEN: Soft, nontender, no guarding, no rigidity present. EXTREMITIES: Trace edema with normal color. LABORATORY DATA: Labs are noted. Lab show white count is 20.3, hemoglobin 8.7, hematocrit 26.5, and platelet count is 371. [place], there were blood cultures, which had Stenotrophomonas maltophilia most probably came from the lung. Urine culture had proteus mirabilis several times, but now blood cultures are negative and urine culture has not been repeated. We will order repeat of the urine culture, but it seems to be growing Proteus mirabilis frequently and may have sphincter or may be related to the Yoo catheter suggest at this time to add, he is already on amikacin once a day and he is on Cipro. I have added meropenem at this time and that will cover the Proteus and the Flagyl via the PEG tube and hopefully his white count will come down and he remains on Flomax. At this time, I discontinued the order of Bactrim, I do not know why it should. I would given him Cipro and Merrem as well as Flagyl. Belem Armstrong MD
[2017-07-23] MEDS: Meropenem 1 GM in Sodium Chloride 0.9% 100 ML IVPB SCH ×3 (06:05→21:14)
[2017-07-23] MEDS: Albuterol-Ipratrop 3 mg / 0.5 (3 ml) UD INH PRN ×5 (07:18→19:40)
[2017-07-23 07:56] LABS: BASO % 0.3 % (0.0-2.0); EOS # 0.4 K/uL (0.0-0.7); EOS % 2.5 % (0.0-4.0); HEMOGLOBIN 8.9 g/dL (12.0-18.0); LYMPH # 1.6 K/uL (1.0-4.3); LYMPH % 10.3 % (20.0-40.0); MEAN CELL VOLUME 88.4 fL (80.0-94.0); MEAN CORPUSCULAR HGB CONC 32.8 g/dL (33.0-37.0); MEAN PLATELET VOLUME 7.6 fL (7.2-11.7); MONO # 1.4 K/uL (0.0-0.8); MONO % 8.9 % (0.0-10.0); RBC 3.05 Mil/uL (4.40-5.90); RED CELL DISTRIBUTION WIDTH 15.4 % (11.5-14.5); WHITE BLOOD COUNT 15.4 K/uL (4.8-10.8)
[2017-07-23 08:07] LABS: ALBUMIN 2.6 g/dL (3.5-5.0)
[2017-07-23 08:10] LABS: ALB/GLOB RATIO 0.6 (1.0-2.1); AST/SGOT 29 U/L (17-59); BLOOD UREA NITROGEN 8 mg/dL (9-20); GFR NON-AFRICAN AMERICAN > 60
[2017-07-23 08:11] LABS: ALT/SGPT 50 U/L (21-72); CALCIUM 7.9 mg/dl (8.6-10.4)
[2017-07-23] MEDS: Ciprofloxacin 400mg/200ml D5W 400 MG/200 ML BAG IVPB SCH ×2 (08:20→19:40)
[2017-07-23] MEDS: Enoxaparin 40 mg Syringe SC SCH (09:23)
[2017-07-23] MEDS: Saccharomyces Boulardi 250 mg Cap PEG SCH (09:23)
[2017-07-23] MEDS: levETIRAcetam 100 mg/ml (5ml) Oral Syringe PEG SCH ×2 (09:24→17:34)
--- NOTE | 2017-07-23 09:53 | CP.PCM.PN ---
<Tyra Yen - Last Filed: 07/23/17 14:06> Subjective - Date & Time of Evaluation Date of Evaluation: 07/23/17 Time of Evaluation: 07:00 - Subjective Subjective: PGY-[address] Chavis Patient was seen and examined at bedside. ROS unattainable due to vegetative state. Objective - Vital Signs/Intake and Output Vital Signs (last 24 hours): Temp Pulse Resp BP Pulse Ox 99.1 F 80 18 106/62 98 07/23/17 08:07 07/23/17 08:07 07/23/17 08:07 07/23/17 08:07 07/23/17 08:07 Intake and Output: 07/23/17 07/23/17 06:59 18:59 Intake Total 1300 1050 Output Total 1000 400 Balance 300 650 - Medications Medications: Current Medications Acetaminophen (Tylenol 650mg/20.3ml Solution Ud) 650 mg PO Q4 PRN PRN Reason: Temperature Last Admin: 07/18/17 19:26 Dose: 650 mg Albuterol/Ipratropium (Duoneb 3 Mg/0.5 Mg (3 Ml) Ud) 3 ml INH RQ6 PRN PRN Reason: Shortness of Breath Last Admin: 07/23/17 07:18 Dose: 3 ml Aspirin (Aspirin Chewable) 81 mg PEG DAILY [facility] Last Admin: 07/23/17 09:22 Dose: 81 mg Bethanechol Chloride (Urecholine) 50 mg PEG TID [facility] Last Admin: 07/23/17 09:22 Dose: 50 mg Carvedilol (Coreg) 3.125 mg PEG BID [facility] Last Admin: 07/23/17 09:22 Dose: 3.125 mg Clopidogrel Bisulfate (Plavix) 75 mg PEG DAILY [facility] Last Admin: 07/23/17 09:23 Dose: 75 mg Emollient Ointment (Vaseline Oint) 5 gm TOP DAILY PRN PRN Reason: Dry skin Enoxaparin Sodium (Lovenox) 40 mg SC DAILY [facility] Last Admin: 07/23/17 09:23 Dose: 40 mg Famotidine (Pepcid) 20 mg PEG DAILY [facility] Last Admin: 07/23/17 09:21 Dose: 20 mg Finasteride (Proscar) 5 mg PEG DAILY [facility] Last Admin: 07/22/17 09:26 Dose: 5 mg Ciprofloxacin (Cipro 400mg/200ml Dsw) 400 mg in 200 mls @ 133 mls/hr IVPB Q12H [facility] Last Admin: 07/23/17 08:20 Dose: 133 mls/hr Amikacin Sulfate 900 mg/ (Sodium Chloride) 253.6 mls @ 169.067 mls/hr IVPB Q24H [facility] Last Admin: 07/22/17 16:40 Dose: 169.067 mls/hr Potassium Chloride 40 meq/ (Sodium Chloride) 1,020 mls @ 100 mls/hr IV .[id number] [facility] Last Admin: 07/23/17 09:30 Dose: 100 mls/hr Meropenem 1 gm/ Sodium (Chloride) 100 mls @ 100 mls/hr IVPB Q8 [facility] Last Admin: 07/23/17 06:05 Dose: 100 mls/hr Levetiracetam (Keppra) 500 mg PEG BID [facility] Last Admin: 07/23/17 09:24 Dose: 500 mg Metronidazole (Flagyl) 500 mg PEG TID [facility] Last Admin: 07/23/17 09:22 Dose: 500 mg Saccharomyces Boulardii (Florastor) 250 mg PEG DAILY [facility] Last Admin: 07/23/17 09:23 Dose: 250 mg Scopolamine (Transderm-Scop) 1 patch TD Q3D [facility] Last Admin: 07/22/17 20:11 Dose: 1 patch Tamsulosin HCl (Flomax) 0.4 mg PEG DAILY [facility] Last Admin: 07/23/17 09:22 Dose: 0.4 mg - Labs Labs: 07/23/17 07:36 07/23/17 07:36 PT 10.6 SECONDS (9.7-12.2) 11/24/15 14:10 INR 1.0 11/24/15 14:10 APTT 25 SECONDS (21-34) 11/24/15 14:10 - Constitutional Appears: Non-toxic, No Acute Distress - Head Exam Head Exam: ATRAUMATIC, NORMAL INSPECTION, NORMOCEPHALIC - Eye Exam Eye Exam: EOMI, Normal appearance - ENT Exam ENT Exam: Mucous Membranes Moist - Neck Exam Additional comments: trach in place - Respiratory Exam Respiratory Exam: Clear to Ausculation Bilateral, NORMAL BREATHING PATTERN - Cardiovascular Exam Cardiovascular Exam: REGULAR RHYTHM, JVD, RRR. absent: Gallop, Murmur - GI/Abdominal Exam GI & Abdominal Exam: Soft, Normal Bowel Sounds - Extremities Exam Additional comments: SCD boots in place - Neurological Exam Neurological Exam: Altered, Awake - Skin Skin Exam: Intact, Normal Color, Warm Assessment and Plan - Assessment and Plan (Free Text) Assessment: Hypokalemia Assessment & Plan: K+ on 07/23: 4.0 K+ on 07/22: 2.8, KCl 40 via peg and KCl 20 IV given in am and 40 via ped and 20 IV in afternoon K+ on 07/21: 3.0, KCl 40 given in am and 40 in afternoon K+ on 07/20: 3.0, KCl 40 given in am and 40 in afternoon Leukocytosis Assessment & Plan: 07/23: WBC 15.4 07/22: WBC 20.3 07/21: WBC increased to 20.8 f/u c dif culture f/u urine culture CT of abdomen and pelvis with po and iv contrast: gallbladder wall thickening with enhancement, possible cholecysitis - will consult surgery, help appreciated cxray 07/21: tracheostomy tube, opacity within the lingula may refelct pneumonia or atelectasis. Linear atelectasis, right mid lung. cardiomegaly WBC: 17.6 on 07/20 continue Cipro and Amikacin As per Dr. Armstrong flagyl 500 mg TID via peg tube to cover for c dif (started on 07/21) Dr. Armstrong started Meropenem 1 gm q8h on 07/22, stopped Bactrim on 07/22 midline access ordered on 07/22 Febrile Assessment & Plan: 07/23: afebrile 07/22: Tmax : 100 at 24:00 07/21: Tmax : 99.9 at 6am 07/20: Patient afebrile since 07/18 07/18: Spiked a temperature overnight 100 degrees Temp 100.9 on 07/12, 103 on 07/16 Tylenol ordered Blood cultures (07/12) growing Stenotrophomonas Maltophilia - sensitive to Cipro - started on 400mg on 07/16 IV Q12H Urine cultures grew Proteus Mirabilis - resistant to everything except Amikacin (day 4) Blood cultures 07/16: no growth after 3 days CXR no acute disease Anoxic encephalopathy Assessment & Plan: s/p cardiac arrest in 05/2015 no acute changes Pt has non spontaneous movements. continue current management. Continue tube feeds- goal of 60ml/hr, feedings held at night due to fluid overload Urinary retention Assessment & Plan: 07/21: NS stopped because tube feeds restarted 07/20: Urine dark in color, monitor, continue NS at 50 ml per hour 07/07/17: Catheter flushed, patient output approx. 500mL within one hour post flush. 06/27/17: Continue bladder massages to aid in voiding. 06/25/17: Patient voids with movement. Continue bladder massages to aid in voiding. 06/23/17: Patient will need to have daily bladder massage to allow for complete voiding 06/17/17: Nursing communication placed in: straight catherization with bladder scan> 100ml 06/08: urinary retention yesterday, was given 40mg lasix iv and patient was able to urinate through condom baker Take note condom cath not always securely in place so Is and Os are approximate as patient does wet bed Ordered- new condom catheter on 05/22/17 Flomax 0.4mg PEG daily Proscar 5mg PEG daily continue Bethanecol 50mg PEG TID- started after persistent retention and found to be effective. monitor I's and O's Check bladder scan for residual urine three times weekly Respiratory failure Assessment & Plan: Trach in place, continue daily monitoring for secretions. No change in management at this time. Continue with aggressive suctioning multiple times a day per respiratory therapist. Monitor for signs of respiratory distress Thick secretions Duoneb 3ml INH Q6 and Mucomyst 4ml INH Q6H Robitussin 100mg PEG Q12H Scopolamine 1 patch TD Q3D JOO Repeat CXR on 05/28/17: linear increased consolidative changes in the right mid- lung zone and left lung base which may represent atelectasis and/or infiltrate. Questionable trace left pleural effusion. moderate venous congestion. cardiomegaly. degenerative changes in the spine and shoulders Sacral ulcer Assessment & Plan: Healed Cont with offloading/cushioning/turning Continue frequent turning, protective ointment and skin checks. History of coronary artery disease Assessment & Plan: s/p cardiac stents on 06/13/15 Cont ASA 81mg via PEG daily Cont Coreg 3.125mg PEG BID Cont Plavix 75mg PO daily Seizures Assessment & Plan: Continue Keppra 500mg PEG BID for seizure prophylaxis Monitor for activity Lower extremity edema Assessment & Plan: Improved SCDs in place Pressure ulcer boots on b/l Continue to monitor Prophylactic measure Assessment & Plan: Pepcid 20 mg PEG BID Lovenox 40mg SC daily SCDs and offloading boots continue to turn and reposition q2hrs Continue to monitor medication administrations and clinical presentation weekly labs. vasoline ointment applied to feet prn to prevent hyperkeratosis Please hold feeding from 10pm-6am, placed into nursing communication tube feedings held (07/22) until ct abdomen comes back NS @75ml/hr <Donnell Ying M - Last Filed: 07/23/17 17:31> Objective - Vital Signs/Intake and Output Vital Signs (last 24 hours): Temp Pulse Resp BP Pulse Ox 98.6 F 80 20 109/63 98 07/23/17 15:39 07/23/17 15:39 07/23/17 15:39 07/23/17 15:39 07/23/17 15:39 Intake and Output: 07/23/17 07/23/17 06:59 18:59 Intake Total 1300 2450 Output Total 1000 1000 Balance 300 1450 - Medications Medications: Current Medications Acetaminophen (Tylenol 650mg/20.3ml Solution Ud) 650 mg PO Q4 PRN PRN Reason: Temperature Last Admin: 07/18/17 19:26 Dose: 650 mg Albuterol/Ipratropium (Duoneb 3 Mg/0.5 Mg (3 Ml) Ud) 3 ml INH RQ6 PRN PRN Reason: Shortness of Breath Last Admin: 07/23/17 15:50 Dose: 3 ml Aspirin (Aspirin Chewable) 81 mg PEG DAILY [facility] Last Admin: 07/23/17 09:22 Dose: 81 mg Bethanechol Chloride (Urecholine) 50 mg PEG TID [facility] Last Admin: 07/23/17 13:00 Dose: 50 mg Carvedilol (Coreg) 3.125 mg PEG BID [facility] Last Admin: 07/23/17 09:22 Dose: 3.125 mg Clopidogrel Bisulfate (Plavix) 75 mg PEG DAILY [facility] Last Admin: 07/23/17 09:23 Dose: 75 mg Emollient Ointment (Vaseline Oint) 5 gm TOP DAILY PRN PRN Reason: Dry skin Enoxaparin Sodium (Lovenox) 40 mg SC DAILY [facility] Last Admin: 07/23/17 09:23 Dose: 40 mg Famotidine (Pepcid) 20 mg PEG DAILY [facility] Last Admin: 07/23/17 09:21 Dose: 20 mg Finasteride (Proscar) 5 mg PEG DAILY [facility] Last Admin: 07/23/17 10:45 Dose: 5 mg Ciprofloxacin (Cipro 400mg/200ml Dsw) 400 mg in 200 mls @ 133 mls/hr IVPB Q12H [facility] Last Admin: 07/23/17 08:20 Dose: 133 mls/hr Amikacin Sulfate 900 mg/ (Sodium Chloride) 253.6 mls @ 169.067 mls/hr IVPB Q24H [facility] Last Admin: 07/23/17 15:59 Dose: 169.067 mls/hr Meropenem 1 gm/ Sodium (Chloride) 100 mls @ 100 mls/hr IVPB Q8 [facility] Last Admin: 07/23/17 13:18 Dose: 100 mls/hr Sodium Chloride (Sodium Chloride 0.9%) 1,000 mls @ 75 mls/hr IV .[id number] [facility] Last Admin: 07/23/17 14:53 Dose: 75 mls/hr Levetiracetam (Keppra) 500 mg PEG BID [facility] Last Admin: 07/23/17 09:24 Dose: 500 mg Metronidazole (Flagyl) 500 mg PEG TID [facility] Last Admin: 07/23/17 13:02 Dose: 500 mg Saccharomyces Boulardii (Florastor) 250 mg PEG DAILY [facility] Last Admin: 07/23/17 09:23 Dose: 250 mg Scopolamine (Transderm-Scop) 1 patch TD Q3D [facility] Last Admin: 07/22/17 20:11 Dose: 1 patch Tamsulosin HCl (Flomax) 0.4 mg PEG DAILY [facility] Last Admin: 07/23/17 09:22 Dose: 0.4 mg - Labs Labs: 07/23/17 07:36 07/23/17 07:36 PT 10.6 SECONDS (9.7-12.2) 11/24/15 14:10 INR 1.0 11/24/15 14:10 APTT 25 SECONDS (21-34) 01/02/16 14:10 Attending/Attestation - Attestation I have personally seen and examined this patient.: Yes I have fully participated in the care of the patient.: Yes I have reviewed all pertinent clinical information, including history, physical exam and plan: Yes Notes (Text): 07/23/17 17:30 Patient was seen and examined at bedside with the resident CT scan of the abdomen and pelvis report reviewed. Patient has possible acute cholecystitis We will manage conservatively for now with IV antibiotics We will request a surgical evaluation for the patient Discussed the plan of care with the resident and I agree with the history and physical and assessment/plan by the resident.
[2017-07-23] MEDS: Sodium Chloride 0.9% 1,000 ML IV SCH (14:53)
--- NOTE | 2017-07-23 15:17 | CP.PCM.CON ---
History of Present Illness - History of Present Illness History of Present Illness: Patient is a 66 year old male consulted for possible cholecystitis. Patient has an elevated white count and an abdominal/pelvic CT showing gallbladder wall thickening, possible cholecystitis. Patient has a medical history of anoxic brain injury from 05/2015. Unable to obtain review of systems due to patient's condition. Review of Systems - Review of Systems Systems not reviewed;Unavailable: Altered Mental Status Past Patient History - Tetanus Immunizations Tetanus Immunization: Unknown - Past Medical History & Family History Past Medical History?: Yes - Past Social History Smoking Status: Never Smoked Alcohol: None Drugs: Denies - CARDIAC Hx Cardiac Disorders: Yes (unknown condition diagnosed in [place] 15 years ago) - MUSCULOSKELETAL/RHEUMATOLOGICAL Hx Falls: Yes - PSYCHIATRIC Hx Substance Use: No - ANESTHESIA Hx Anesthesia: No Hx Anesthesia Reactions: No Hx Malignant Hyperthermia: No Has any member of the family had a problem w/ anesthesia?: No Meds Allergies/Adverse Reactions: Allergies Allergy/AdvReac Type Severity Reaction Status Date / Time No Known Allergies Allergy Unverified 06/13/15 20:57 - Medications Medications: Current Medications Acetaminophen (Tylenol 650mg/20.3ml Solution Ud) 650 mg PO Q4 PRN PRN Reason: Temperature Last Admin: 07/18/17 19:26 Dose: 650 mg Albuterol/Ipratropium (Duoneb 3 Mg/0.5 Mg (3 Ml) Ud) 3 ml INH RQ6 PRN PRN Reason: Shortness of Breath Last Admin: 07/23/17 13:29 Dose: 3 ml Aspirin (Aspirin Chewable) 81 mg PEG DAILY [facility] Last Admin: 07/23/17 09:22 Dose: 81 mg Bethanechol Chloride (Urecholine) 50 mg PEG TID [facility] Last Admin: 07/23/17 13:00 Dose: 50 mg Carvedilol (Coreg) 3.125 mg PEG BID [facility] Last Admin: 07/23/17 09:22 Dose: 3.125 mg Clopidogrel Bisulfate (Plavix) 75 mg PEG DAILY [facility] Last Admin: 07/23/17 09:23 Dose: 75 mg Emollient Ointment (Vaseline Oint) 5 gm TOP DAILY PRN PRN Reason: Dry skin Enoxaparin Sodium (Lovenox) 40 mg SC DAILY [facility] Last Admin: 07/23/17 09:23 Dose: 40 mg Famotidine (Pepcid) 20 mg PEG DAILY [facility] Last Admin: 07/23/17 09:21 Dose: 20 mg Finasteride (Proscar) 5 mg PEG DAILY [facility] Last Admin: 07/23/17 10:45 Dose: 5 mg Ciprofloxacin (Cipro 400mg/200ml Dsw) 400 mg in 200 mls @ 133 mls/hr IVPB Q12H [facility] Last Admin: 07/23/17 08:20 Dose: 133 mls/hr Amikacin Sulfate 900 mg/ (Sodium Chloride) 253.6 mls @ 169.067 mls/hr IVPB Q24H [facility] Last Admin: 07/22/17 16:40 Dose: 169.067 mls/hr Meropenem 1 gm/ Sodium (Chloride) 100 mls @ 100 mls/hr IVPB Q8 [facility] Last Admin: 07/23/17 13:18 Dose: 100 mls/hr Sodium Chloride (Sodium Chloride 0.9%) 1,000 mls @ 75 mls/hr IV .[id number] [facility] Last Admin: 07/23/17 14:53 Dose: 75 mls/hr Levetiracetam (Keppra) 500 mg PEG BID [facility] Last Admin: 07/23/17 09:24 Dose: 500 mg Metronidazole (Flagyl) 500 mg PEG TID [facility] Last Admin: 07/23/17 13:02 Dose: 500 mg Saccharomyces Boulardii (Florastor) 250 mg PEG DAILY [facility] Last Admin: 07/23/17 09:23 Dose: 250 mg Scopolamine (Transderm-Scop) 1 patch TD Q3D [facility] Last Admin: 07/22/17 20:11 Dose: 1 patch Tamsulosin HCl (Flomax) 0.4 mg PEG DAILY [facility] Last Admin: 07/23/17 09:22 Dose: 0.4 mg Physical Exam - Head Exam Head Exam: absent: ATRAUMATIC, NORMAL INSPECTION - Eye Exam Eye Exam: absent: EOMI - ENT Exam ENT Exam: absent: Mucous Membranes Moist - Respiratory Exam Respiratory Exam: Rhonchi, Wheezes. absent: Decreased Breath Sounds, Clear to Auscultation Bilateral, Rales - Cardiovascular Exam Cardiovascular Exam: +S1, +S2. absent: Bradycardia, Tachycardia - GI/Abdominal Exam GI & Abdominal Exam: Distended, Hypoactive Bowel Sounds, Soft - Extremities Exam Extremities exam: Positive for: pedal pulses present. Negative for: pedal edema Results - Vital Signs Recent Vital Signs: Last Vital Signs Temp 99.1 F 07/23/17 08:07 Pulse 80 07/23/17 08:07 Resp 18 07/23/17 08:07 BP 106/62 07/23/17 08:07 Pulse Ox 98 07/23/17 08:07 - Labs Result Diagrams: 07/23/17 07:36 07/23/17 07:36 Labs: Laboratory Results - last 24 hr 07/22/17 07/23/17 07/23/17 17:46 07:36 07:36 WBC 15.4 H RBC 3.05 L Hgb 8.9 L Hct 27.0 L MCV 88.4 MCH 29.0 MCHC 32.8 L RDW 15.4 H Plt Count 447 H MPV 7.6 Neut % (Auto) 78.0 H Lymph % (Auto) 10.3 L [place] % (Auto) 8.9 Eos % (Auto) 2.5 Baso % (Auto) 0.3 Neut # 12.0 H Lymph # 1.6 [place] # 1.4 H Eos # 0.4 Baso # 0.0 Sodium 138 139 Potassium 3.7 4.0 Chloride 103 101 Carbon Dioxide 27 30 Anion Gap 11 12 BUN 8 L 8 L Creatinine 0.8 0.9 Est GFR ( Amer) > 60 > 60 Est GFR (Non-Af Amer) > 60 > 60 Random Glucose 116 H 118 H Calcium 7.8 L 7.9 L Phosphorus 3.5 Magnesium 1.9 Total Bilirubin 0.8 0.6 AST 31 29 ALT 56 50 Alkaline Phosphatase 180 H 168 H Total Protein 7.0 7.0 Albumin 2.7 L 2.6 L Globulin 4.3 H 4.4 H Albumin/Globulin Ratio 0.6 L 0.6 L Assessment & Plan (1) Anoxic encephalopathy Status: Chronic (2) UTI (urinary tract infection) Status: Resolved (3) Urinary retention Status: Acute (4) Watery stools Status: Resolved (5) Respiratory failure Status: Chronic (6) Sacral ulcer Status: Resolved (7) History of coronary artery disease Status: Acute (8) Seizures Status: Acute (9) Lower extremity edema Status: Acute (10) Constipation Status: Acute - Assessment and Plan (Free Text) Assessment: Patient is a 66 year old male consulted for possible cholescystitis. Abdominal/ pelvic CT showed gallbladder wall thickening. - No surgical intervention at this time. - Continue medical management as per Hospitalist team.
[2017-07-23] MEDS: AMIKACIN SULFATE IVPB SCH (15:59)
[2017-07-23] MEDS: SODIUM CHLORIDE 0.9% IVPB SCH (15:59)
[2017-07-24] MEDS: Sodium Chloride 0.9% 1,000 ML IV SCH ×4 (03:17→20:18)
[2017-07-24] MEDS: Albuterol-Ipratrop 3 mg / 0.5 (3 ml) UD INH PRN ×4 (04:30→19:31)
[2017-07-24] MEDS: Meropenem 1 GM in Sodium Chloride 0.9% 100 ML IVPB SCH ×3 (05:04→21:39)
[2017-07-24] MEDS: Ciprofloxacin 400mg/200ml D5W 400 MG/200 ML BAG IVPB SCH ×2 (07:14→20:14)
[2017-07-24] MEDS: Saccharomyces Boulardi 250 mg Cap PEG SCH (09:30)
[2017-07-24] MEDS: Enoxaparin 40 mg Syringe SC SCH (09:30)
[2017-07-24] MEDS: levETIRAcetam 100 mg/ml (5ml) Oral Syringe PEG SCH ×2 (09:31→17:33)
[2017-07-24 11:48] LABS: ALBUMIN 2.7 g/dL (3.5-5.0)
[2017-07-24 11:50] LABS: ALB/GLOB RATIO 0.6 (1.0-2.1); AST/SGOT 43 U/L (17-59); GFR NON-AFRICAN AMERICAN > 60
[2017-07-24 11:51] LABS: ALT/SGPT 37 U/L (21-72); BLOOD UREA NITROGEN 8 mg/dL (9-20); CALCIUM 7.4 mg/dl (8.6-10.4)
[2017-07-24 14:30] LABS: BASO # 0.1 K/uL (0.0-0.2); BASO % 0.7 % (0.0-2.0); EOS # 0.6 K/uL (0.0-0.7); EOS % 3.7 % (0.0-4.0); HEMOGLOBIN 10.2 g/dL (12.0-18.0); LYMPH # 1.6 K/uL (1.0-4.3); LYMPH % 10.6 % (20.0-40.0); MEAN CELL VOLUME 89.1 fL (80.0-94.0); MEAN CORPUSCULAR HGB CONC 32.6 g/dL (33.0-37.0); MEAN PLATELET VOLUME 7.7 fL (7.2-11.7); MONO # 1.2 K/uL (0.0-0.8); MONO % 7.6 % (0.0-10.0); NEUT # 11.8 K/uL (1.8-7.0); NEUT % 77.4 % (50.0-75.0); RBC 3.51 Mil/uL (4.40-5.90); RED CELL DISTRIBUTION WIDTH 15.4 % (11.5-14.5); WHITE BLOOD COUNT 15.3 K/uL (4.8-10.8)
[2017-07-24] MEDS: SODIUM CHLORIDE 0.9% IVPB SCH (15:56)
[2017-07-24] MEDS: AMIKACIN SULFATE IVPB SCH (15:56)
--- NOTE | 2017-07-24 16:20 | CP.PCM.PN ---
<Josue Denson - Last Filed: 07/24/17 16:23> Subjective - Date & Time of Evaluation Date of Evaluation: 07/24/17 Time of Evaluation: 16:18 - Subjective Subjective: PGY1 Note for Dr. Ying HPI: Patient was seen and examined at bedside. ROS unattainable due to vegetative state. Objective - Vital Signs/Intake and Output Vital Signs (last 24 hours): Temp Pulse Resp BP Pulse Ox 98.3 F 91 H 18 121/86 100 07/24/17 15:48 07/24/17 15:48 07/24/17 15:48 07/24/17 15:48 07/24/17 15:48 Intake and Output: 07/24/17 07/24/17 06:59 18:59 Intake Total 2800 1200 Output Total 401 501 Balance 2399 699 - Medications Medications: Current Medications Acetaminophen (Tylenol 650mg/20.3ml Solution Ud) 650 mg PO Q4 PRN PRN Reason: Temperature Last Admin: 07/18/17 19:26 Dose: 650 mg Albuterol/Ipratropium (Duoneb 3 Mg/0.5 Mg (3 Ml) Ud) 3 ml INH RQ6 PRN PRN Reason: Shortness of Breath Last Admin: 07/24/17 16:15 Dose: 3 ml Aspirin (Aspirin Chewable) 81 mg PEG DAILY ON LICENSE OF [facility] Last Admin: 07/24/17 09:30 Dose: 81 mg Bethanechol Chloride (Urecholine) 50 mg PEG TID ON LICENSE OF [facility] Last Admin: 07/24/17 13:09 Dose: 50 mg Carvedilol (Coreg) 3.125 mg PEG BID ON LICENSE OF [facility] Last Admin: 07/24/17 09:31 Dose: 3.125 mg Clopidogrel Bisulfate (Plavix) 75 mg PEG DAILY ON LICENSE OF [facility] Last Admin: 07/24/17 09:31 Dose: 75 mg Emollient Ointment (Vaseline Oint) 5 gm TOP DAILY PRN PRN Reason: Dry skin Enoxaparin Sodium (Lovenox) 40 mg SC DAILY ON LICENSE OF [facility] Last Admin: 07/24/17 09:30 Dose: 40 mg Famotidine (Pepcid) 20 mg PEG DAILY ON LICENSE OF [facility] Last Admin: 07/24/17 09:31 Dose: 20 mg Finasteride (Proscar) 5 mg PEG DAILY ON LICENSE OF [facility] Last Admin: 09/01/17 09:31 Dose: 5 mg Ciprofloxacin (Cipro 400mg/200ml Dsw) 400 mg in 200 mls @ 133 mls/hr IVPB Q12H ON LICENSE OF [facility] Last Admin: 07/24/17 07:14 Dose: 133 mls/hr Amikacin Sulfate 900 mg/ (Sodium Chloride) 253.6 mls @ 169.067 mls/hr IVPB Q24H ON LICENSE OF [facility] Last Admin: 07/24/17 15:56 Dose: 169.067 mls/hr Meropenem 1 gm/ Sodium (Chloride) 100 mls @ 100 mls/hr IVPB Q8 ON LICENSE OF [facility] Last Admin: 07/24/17 13:51 Dose: 100 mls/hr Sodium Chloride (Sodium Chloride 0.9%) 1,000 mls @ 75 mls/hr IV .[id number] ON LICENSE OF [facility] Last Admin: 07/24/17 07:16 Dose: 75 mls/hr Levetiracetam (Keppra) 500 mg PEG BID ON LICENSE OF [facility] Last Admin: 07/24/17 09:31 Dose: 500 mg Metronidazole (Flagyl) 500 mg PEG TID ON LICENSE OF [facility] Last Admin: 07/24/17 13:09 Dose: 500 mg Saccharomyces Boulardii (Florastor) 250 mg PEG DAILY ON LICENSE OF [facility] Last Admin: 07/24/17 09:30 Dose: 250 mg Scopolamine (Transderm-Scop) 1 patch TD Q3D ON LICENSE OF [facility] Last Admin: 07/22/17 20:11 Dose: 1 patch Tamsulosin HCl (Flomax) 0.4 mg PEG DAILY ON LICENSE OF [facility] Last Admin: 07/24/17 09:30 Dose: 0.4 mg - Labs Labs: 07/24/17 14:21 07/24/17 11:17 PT 10.6 SECONDS (9.7-12.2) 11/24/15 14:10 INR 1.0 11/24/15 14:10 APTT 25 SECONDS (21-34) 11/24/15 14:10 - Constitutional Appears: Chronically Ill - Head Exam Head Exam: ATRAUMATIC, NORMAL INSPECTION, NORMOCEPHALIC - ENT Exam ENT Exam: Mucous Membranes Moist - Neck Exam Additional comments: Trach - Respiratory Exam Additional comments: crackles - Cardiovascular Exam Cardiovascular Exam: REGULAR RHYTHM - GI/Abdominal Exam GI & Abdominal Exam: Soft, Normal Bowel Sounds. absent: Distended, Tenderness Additional comments: red rash non raised - Neurological Exam Additional comments: vegetative state - Skin Skin Exam: Rash (as above) Assessment and Plan - Assessment and Plan (Free Text) Assessment: Rash Assessment & Plan: IV Benadryl 25mg once Hypokalemia Assessment & Plan: K+ on 07/24: 4.1 K+ on 07/23: 4.0 K+ on 07/22: 2.8, KCl 40 via peg and KCl 20 IV given in am and 40 via ped and 20 IV in afternoon K+ on 07/21: 3.0, KCl 40 given in am and 40 in afternoon K+ on 07/20: 3.0, KCl 40 given in am and 40 in afternoon Leukocytosis Assessment & Plan: 07/24: WBC 15.3 07/23: WBC 15.4 07/22: WBC 20.3 07/21: WBC increased to 20.8 f/u c dif culture f/u urine culture CT of abdomen and pelvis with po and iv contrast: gallbladder wall thickening with enhancement, possible cholecysitis - will consult surgery, help appreciated cxray 07/21: tracheostomy tube, opacity within the lingula may refelct pneumonia or atelectasis. Linear atelectasis, right mid lung. cardiomegaly WBC: 17.6 on 07/20 continue Cipro and Amikacin As per Dr. Armstrong flagyl 500 mg TID via peg tube to cover for c dif (started on 07/21) Dr. Armstrong started Meropenem 1 gm q8h on 07/22, stopped Bactrim on 07/22 midline access ordered on 07/22 Febrile Assessment & Plan: 07/24: afebrile 07/23: afebrile 07/22: Tmax : 100 at 24:00 07/21: Tmax : 99.9 at 6am 07/20: Patient afebrile since 07/18 07/18: Spiked a temperature overnight 100 degrees Temp 100.9 on 07/12, 103 on 07/16 Tylenol ordered Blood cultures (07/12) growing Stenotrophomonas Maltophilia - sensitive to Cipro - started on 400mg on 07/16 IV Q12H Urine cultures grew Proteus Mirabilis - resistant to everything except Amikacin (day 4) Blood cultures 07/16: no growth after 3 days CXR no acute disease Anoxic encephalopathy Assessment & Plan: s/p cardiac arrest in 05/2015 no acute changes Pt has non spontaneous movements. continue current management. Continue tube feeds- goal of 60ml/hr, feedings held at night due to fluid overload Urinary retention Assessment & Plan: 07/21: NS stopped because tube feeds restarted 07/20: Urine dark in color, monitor, continue NS at 50 ml per hour 07/07/17: Catheter flushed, patient output approx. 500mL within one hour post flush. 06/27/17: Continue bladder massages to aid in voiding. 06/25/17: Patient voids with movement. Continue bladder massages to aid in voiding. 06/23/17: Patient will need to have daily bladder massage to allow for complete voiding 06/17/17: Nursing communication placed in: straight catherization with bladder scan> 100ml 06/08: urinary retention yesterday, was given 40mg lasix iv and patient was able to urinate through condom baker Take note condom cath not always securely in place so Is and Os are approximate as patient does wet bed Ordered- new condom catheter on 05/22/17 Flomax 0.4mg PEG daily Proscar 5mg PEG daily continue Bethanecol 50mg PEG TID- started after persistent retention and found to be effective. monitor I's and O's Check bladder scan for residual urine three times weekly Respiratory failure Assessment & Plan: Trach in place, continue daily monitoring for secretions. No change in management at this time. Continue with aggressive suctioning multiple times a day per respiratory therapist. Monitor for signs of respiratory distress Thick secretions Duoneb 3ml INH Q6 and Mucomyst 4ml INH Q6H Robitussin 100mg PEG Q12H Scopolamine 1 patch TD Q3D JOO Repeat CXR on 05/28/17: linear increased consolidative changes in the right mid- lung zone and left lung base which may represent atelectasis and/or infiltrate. Questionable trace left pleural effusion. moderate venous congestion. cardiomegaly. degenerative changes in the spine and shoulders Sacral ulcer Assessment & Plan: Healed Cont with offloading/cushioning/turning Continue frequent turning, protective ointment and skin checks. History of coronary artery disease Assessment & Plan: s/p cardiac stents on 06/13/15 Cont ASA 81mg via PEG daily Cont Coreg 3.125mg PEG BID Cont Plavix 75mg PO daily Seizures Assessment & Plan: Continue Keppra 500mg PEG BID for seizure prophylaxis Monitor for activity Lower extremity edema Assessment & Plan: Improved SCDs in place Pressure ulcer boots on b/l Continue to monitor Prophylactic measure Assessment & Plan: Pepcid 20 mg PEG BID Lovenox 40mg SC daily SCDs and offloading boots continue to turn and reposition q2hrs Continue to monitor medication administrations and clinical presentation weekly labs. vasoline ointment applied to feet prn to prevent hyperkeratosis Please hold feeding from 10pm-6am, placed into nursing communication tube feedings held (07/22) until ct abdomen comes back NS @75ml/hr <Donnell Ying M - Last Filed: 07/25/17 15:33> Objective - Vital Signs/Intake and Output Vital Signs (last 24 hours): Temp Pulse Resp BP Pulse Ox 98.2 F 96 H 20 125/73 100 07/25/17 08:13 07/25/17 08:13 07/25/17 08:13 07/25/17 08:13 07/25/17 08:13 Intake and Output: 07/25/17 07/25/17 06:59 18:59 Intake Total 1050 1175 Output Total 400 950 Balance 650 225 - Medications Medications: Current Medications Acetaminophen (Tylenol 650mg/20.3ml Solution Ud) 650 mg PO Q4 PRN PRN Reason: Temperature Last Admin: 07/18/17 19:26 Dose: 650 mg Albuterol/Ipratropium (Duoneb 3 Mg/0.5 Mg (3 Ml) Ud) 3 ml INH RQ6 PRN PRN Reason: Shortness of Breath Last Admin: 07/25/17 13:23 Dose: 3 ml Aspirin (Aspirin Chewable) 81 mg PEG DAILY ON LICENSE OF [facility] Last Admin: 07/25/17 10:06 Dose: 81 mg Bethanechol Chloride (Urecholine) 50 mg PEG TID ON LICENSE OF [facility] Last Admin: 07/25/17 13:54 Dose: 50 mg Carvedilol (Coreg) 3.125 mg PEG BID ON LICENSE OF [facility] Last Admin: 07/25/17 10:06 Dose: 3.125 mg Clopidogrel Bisulfate (Plavix) 75 mg PEG DAILY ON LICENSE OF [facility] Last Admin: 07/25/17 10:06 Dose: 75 mg Emollient Ointment (Vaseline Oint) 5 gm TOP DAILY PRN PRN Reason: Dry skin Enoxaparin Sodium (Lovenox) 40 mg SC DAILY ON LICENSE OF [facility] Last Admin: 07/25/17 10:06 Dose: 40 mg Famotidine (Pepcid) 20 mg PEG DAILY ON [facility] Last Admin: 07/25/17 10:06 Dose: 20 mg Finasteride (Proscar) 5 mg PEG DAILY ON LICENSE [facility] Last Admin: 07/25/17 10:07 Dose: 5 mg Ciprofloxacin (Cipro 400mg/200ml Dsw) 400 mg in 200 mls @ 133 mls/hr IVPB Q12H ON LICENSE OF [facility] Last Admin: 07/25/17 08:16 Dose: 133 mls/hr Amikacin Sulfate 900 mg/ (Sodium Chloride) 253.6 mls @ 169.067 mls/hr IVPB Q24H ON LICENSE OF [facility] Last Admin: 07/25/17 15:04 Dose: 169.067 mls/hr Meropenem 1 gm/ Sodium (Chloride) 100 mls @ 100 mls/hr IVPB Q8 ON LICENSE OF [facility] Last Admin: 07/25/17 13:54 Dose: 100 mls/hr Sodium Chloride (Sodium Chloride 0.9%) 1,000 mls @ 75 mls/hr IV .[id number] ON LICENSE OF [facility] Last Admin: 07/24/17 20:18 Dose: 75 mls/hr Fluconazole 100 mg/ (Miscellaneous) 50 mls @ 50 mls/hr IVPB DAILY@1800 ON LICENSE OF [facility] Levetiracetam (Keppra) 500 mg PEG BID ON LICENSE OF [facility] Last Admin: 07/25/17 10:06 Dose: 500 mg Metronidazole (Flagyl) 500 mg PEG TID ON LICENSE OF [facility] Last Admin: 07/25/17 13:54 Dose: 500 mg Saccharomyces Boulardii (Florastor) 250 mg PEG DAILY ON LICENSE OF [facility] Last Admin: 07/25/17 10:06 Dose: 250 mg Scopolamine (Transderm-Scop) 1 patch TD Q3D ON LICENSE OF [facility] Last Admin: 07/22/17 20:11 Dose: 1 patch Tamsulosin HCl (Flomax) 0.4 mg PEG DAILY ON LICENSE OF [facility] Last Admin: 07/25/17 10:06 Dose: 0.4 mg Ticagrelor (Brilinta) 90 mg PO BID ON LICENSE OF [facility] - Labs Labs: 07/25/17 06:59 07/25/17 06:59 PT 10.6 SECONDS (9.7-12.2) 11/24/15 14:10 INR 1.0 11/24/15 14:10 APTT 25 SECONDS (21-34) 11/24/15 14:10 Attending/Attestation - Attestation I have personally seen and examined this patient.: Yes I have fully participated in the care of the patient.: Yes I have reviewed all pertinent clinical information, including history, physical exam and plan: Yes Notes (Text): 07/25/17 15:33 Patient was seen and examined at bedside We will continue IV antibiotics for acute cholecystitis and surgical evaluation seen and appreciated. No surgical intervention is suggested at this time Continue conservative management I discussed the plan of care with the resident I agree with the assessment and plan documented
--- NOTE | 2017-07-25 01:29 | CP.PCM.PN ---
Addendum entered and electronically signed by Judith Forrester DO, DO 13:46: Urine culture positive for yeast species. Will start fluconazole. Due to interaction of plavix and fluconazole, will temporarily change patient to brilinta 90mg BID. Original Note: <FarshadTyra L. - Last Filed: 07/25/17 01:26> Subjective - Date & Time of Evaluation Date of Evaluation: 07/25/17 Time of Evaluation: 07:00 - Subjective Subjective: PGY1- Medicine Note- Dr. Ying's Service HPI: Patient was seen and examined at bedside. ROS unattainable due to vegetative state. Objective - Vital Signs/Intake and Output Vital Signs (last 24 hours): Temp Pulse Resp BP Pulse Ox 98.6 F 79 20 106/61 97 07/25/17 00:00 07/25/17 00:00 07/25/17 00:00 07/25/17 00:00 07/25/17 00:00 Intake and Output: 07/24/17 07/25/17 18:59 06:59 Intake Total 1200 Output Total 501 Balance 699 - Medications Medications: Current Medications Acetaminophen (Tylenol 650mg/20.3ml Solution Ud) 650 mg PO Q4 PRN PRN Reason: Temperature Last Admin: 07/18/17 19:26 Dose: 650 mg Albuterol/Ipratropium (Duoneb 3 Mg/0.5 Mg (3 Ml) Ud) 3 ml INH RQ6 PRN PRN Reason: Shortness of Breath Last Admin: 07/24/17 19:31 Dose: 3 ml Aspirin (Aspirin Chewable) 81 mg PEG DAILY [facility] Last Admin: 07/24/17 09:30 Dose: 81 mg Bethanechol Chloride (Urecholine) 50 mg PEG TID [facility] Last Admin: 07/24/17 17:33 Dose: 50 mg Carvedilol (Coreg) 3.125 mg PEG BID [facility] Last Admin: 07/24/17 17:33 Dose: 3.125 mg Clopidogrel Bisulfate (Plavix) 75 mg PEG DAILY [facility] Last Admin: 07/24/17 09:31 Dose: 75 mg Emollient Ointment (Vaseline Oint) 5 gm TOP DAILY PRN PRN Reason: Dry skin Enoxaparin Sodium (Lovenox) 40 mg SC DAILY [facility] Last Admin: 07/24/17 09:30 Dose: 40 mg Famotidine (Pepcid) 20 mg PEG DAILY [facility] Last Admin: 07/24/17 09:31 Dose: 20 mg Finasteride (Proscar) 5 mg PEG DAILY [facility] Last Admin: 07/24/17 09:31 Dose: 5 mg Ciprofloxacin (Cipro 400mg/200ml Dsw) 400 mg in 200 mls @ 133 mls/hr IVPB Q12H [facility] Last Admin: 07/24/17 20:14 Dose: 133 mls/hr Amikacin Sulfate 900 mg/ (Sodium Chloride) 253.6 mls @ 169.067 mls/hr IVPB Q24H [facility] Last Admin: 07/24/17 15:56 Dose: 169.067 mls/hr Meropenem 1 gm/ Sodium (Chloride) 100 mls @ 100 mls/hr IVPB Q8 [facility] Last Admin: 07/24/17 21:39 Dose: 100 mls/hr Sodium Chloride (Sodium Chloride 0.9%) 1,000 mls @ 75 mls/hr IV .[id number] [facility] Last Admin: 07/24/17 20:18 Dose: 75 mls/hr Levetiracetam (Keppra) 500 mg PEG BID [facility] Last Admin: 07/24/17 17:33 Dose: 500 mg Metronidazole (Flagyl) 500 mg PEG TID [facility] Last Admin: 07/24/17 17:33 Dose: 500 mg Saccharomyces Boulardii (Florastor) 250 mg PEG DAILY [facility] Last Admin: 07/24/17 09:30 Dose: 250 mg Scopolamine (Transderm-Scop) 1 patch TD Q3D [facility] Last Admin: 07/22/17 20:11 Dose: 1 patch Tamsulosin HCl (Flomax) 0.4 mg PEG DAILY [facility] Last Admin: 07/24/17 09:30 Dose: 0.4 mg - Labs Labs: 07/24/17 14:21 07/24/17 11:17 PT 10.6 SECONDS (9.7-12.2) 11/24/15 14:10 INR 1.0 11/24/15 14:10 APTT 25 SECONDS (21-34) 11/24/15 14:10 - Constitutional Appears: Non-toxic, No Acute Distress, Chronically Ill - Head Exam Head Exam: ATRAUMATIC, NORMAL INSPECTION, NORMOCEPHALIC - Eye Exam Eye Exam: EOMI, Normal appearance, PERRL - ENT Exam ENT Exam: Mucous Membranes Moist, Normal Exam - Neck Exam Additional comments: trach in place - Respiratory Exam Respiratory Exam: Rales, NORMAL BREATHING PATTERN - Cardiovascular Exam Cardiovascular Exam: REGULAR RHYTHM, RRR. absent: Gallop, Rubs, Murmur - GI/Abdominal Exam GI & Abdominal Exam: Soft, Normal Bowel Sounds - Extremities Exam Extremities Exam: Normal Inspection - Neurological Exam Neurological Exam: Altered - Skin Skin Exam: Intact, Normal Color, Rash, Warm Additional comments: rash on abdomen Assessment and Plan - Assessment and Plan (Free Text) Assessment: Rash Assessment & Plan: IV Benadryl 25mg once Hypokalemia Assessment & Plan: K+ on 07/24: 4.1 K+ on 07/23: 4.0 K+ on 07/22: 2.8, KCl 40 via peg and KCl 20 IV given in am and 40 via ped and 20 IV in afternoon K+ on 07/21: 3.0, KCl 40 given in am and 40 in afternoon K+ on 07/20: 3.0, KCl 40 given in am and 40 in afternoon Leukocytosis Assessment & Plan: 07/24: WBC 15.3 07/23: WBC 15.4 07/22: WBC 20.3 07/21: WBC increased to 20.8 f/u c dif culture f/u urine culture CT of abdomen and pelvis with po and iv contrast: gallbladder wall thickening with enhancement, possible cholecysitis - will consult surgery, help appreciated cxray 07/21: tracheostomy tube, opacity within the lingula may refelct pneumonia or atelectasis. Linear atelectasis, right mid lung. cardiomegaly WBC: 17.6 on 07/20 continue Cipro and Amikacin As per Dr. Armstrong flagyl 500 mg TID via peg tube to cover for c dif (started on 07/21) Dr. Armstrong started Meropenem 1 gm q8h on 07/22, stopped Bactrim on 07/22 midline access ordered on 07/22 Febrile Assessment & Plan: 07/24: afebrile 07/23: afebrile 07/22: Tmax : 100 at 24:00 07/21: Tmax : 99.9 at 6am 07/20: Patient afebrile since 07/18 07/18: Spiked a temperature overnight 100 degrees Temp 100.9 on 07/12, 103 on 07/16 Tylenol ordered Blood cultures (07/12) growing Stenotrophomonas Maltophilia - sensitive to Cipro - started on 400mg on 07/16 IV Q12H Urine cultures grew Proteus Mirabilis - resistant to everything except Amikacin (day 4) Blood cultures 07/16: no growth after 3 days CXR no acute disease Anoxic encephalopathy Assessment & Plan: s/p cardiac arrest in 05/2015 no acute changes Pt has non spontaneous movements. continue current management. Continue tube feeds- goal of 60ml/hr, feedings held at night due to fluid overload Urinary retention Assessment & Plan: 07/21: NS stopped because tube feeds restarted 07/20: Urine dark in color, monitor, continue NS at 50 ml per hour 07/07/17: Catheter flushed, patient output approx. 500mL within one hour post flush. 06/27/17: Continue bladder massages to aid in voiding. 06/25/17: Patient voids with movement. Continue bladder massages to aid in voiding. 06/23/17: Patient will need to have daily bladder massage to allow for complete voiding 06/17/17: Nursing communication placed in: straight catherization with bladder scan> 100ml 06/08: urinary retention yesterday, was given 40mg lasix iv and patient was able to urinate through condom baker Take note condom cath not always securely in place so Is and Os are approximate as patient does wet bed Ordered- new condom catheter on 05/22/17 Flomax 0.4mg PEG daily Proscar 5mg PEG daily continue Bethanecol 50mg PEG TID- started after persistent retention and found to be effective. monitor I's and O's Check bladder scan for residual urine three times weekly Respiratory failure Assessment & Plan: Trach in place, continue daily monitoring for secretions. No change in management at this time. Continue with aggressive suctioning multiple times a day per respiratory therapist. Monitor for signs of respiratory distress Thick secretions Duoneb 3ml INH Q6 and Mucomyst 4ml INH Q6H Robitussin 100mg PEG Q12H Scopolamine 1 patch TD Q3D JOO Repeat CXR on 05/28/17: linear increased consolidative changes in the right mid- lung zone and left lung base which may represent atelectasis and/or infiltrate. Questionable trace left pleural effusion. moderate venous congestion. cardiomegaly. degenerative changes in the spine and shoulders Sacral ulcer Assessment & Plan: Healed Cont with offloading/cushioning/turning Continue frequent turning, protective ointment and skin checks. History of coronary artery disease Assessment & Plan: s/p cardiac stents on 06/13/15 Cont ASA 81mg via PEG daily Cont Coreg 3.125mg PEG BID Cont Plavix 75mg PO daily Seizures Assessment & Plan: Continue Keppra 500mg PEG BID for seizure prophylaxis Monitor for activity Lower extremity edema Assessment & Plan: Improved SCDs in place Pressure ulcer boots on b/l Continue to monitor Prophylactic measure Assessment & Plan: Pepcid 20 mg PEG BID Lovenox 40mg SC daily SCDs and offloading boots continue to turn and reposition q2hrs Continue to monitor medication administrations and clinical presentation weekly labs. vasoline ointment applied to feet prn to prevent hyperkeratosis Please hold feeding from 10pm-6am, placed into nursing communication tube feedings held (07/22) until ct abdomen comes back NS @75ml/hr <Donnell Ying - Last Filed: 07/25/17 17:15> Objective - Vital Signs/Intake and Output Vital Signs (last 24 hours): Temp Pulse Resp BP Pulse Ox 98.8 F 84 20 112/75 96 07/25/17 15:00 07/25/17 15:00 07/25/17 15:00 07/25/17 15:00 07/25/17 15:00 Intake and Output: 07/25/17 07/25/17 06:59 18:59 Intake Total 1050 1175 Output Total 400 950 Balance 650 225 - Medications Medications: Current Medications Acetaminophen (Tylenol 650mg/20.3ml Solution Ud) 650 mg PO Q4 PRN PRN Reason: Temperature Last Admin: 07/18/17 19:26 Dose: 650 mg Albuterol/Ipratropium (Duoneb 3 Mg/0.5 Mg (3 Ml) Ud) 3 ml INH RQ6 PRN PRN Reason: Shortness of Breath Last Admin: 07/25/17 13:23 Dose: 3 ml Aspirin (Aspirin Chewable) 81 mg PEG DAILY JOO Last Admin: 07/25/17 10:06 Dose: 81 mg Bethanechol Chloride (Urecholine) 50 mg PEG TID [facility] Last Admin: 07/25/17 13:54 Dose: 50 mg Carvedilol (Coreg) 3.125 mg PEG BID [facility] Last Admin: 07/25/17 10:06 Dose: 3.125 mg Clopidogrel Bisulfate (Plavix) 75 mg PEG DAILY [facility] Last Admin: 07/25/17 10:06 Dose: 75 mg Emollient Ointment (Vaseline Oint) 5 gm TOP DAILY PRN PRN Reason: Dry skin Enoxaparin Sodium (Lovenox) 40 mg SC DAILY [facility] Last Admin: 07/25/17 10:06 Dose: 40 mg Famotidine (Pepcid) 20 mg PEG DAILY [facility] Last Admin: 07/25/17 10:06 Dose: 20 mg Finasteride (Proscar) 5 mg PEG DAILY [facility] Last Admin: 07/25/17 10:07 Dose: 5 mg Ciprofloxacin (Cipro 400mg/200ml Dsw) 400 mg in 200 mls @ 133 mls/hr IVPB Q12H [facility] Last Admin: 07/25/17 08:16 Dose: 133 mls/hr Amikacin Sulfate 900 mg/ (Sodium Chloride) 253.6 mls @ 169.067 mls/hr IVPB Q24H [facility] Last Admin: 07/25/17 15:04 Dose: 169.067 mls/hr Meropenem 1 gm/ Sodium (Chloride) 100 mls @ 100 mls/hr IVPB Q8 [facility] Last Admin: 07/25/17 13:54 Dose: 100 mls/hr Sodium Chloride (Sodium Chloride 0.9%) 1,000 mls @ 75 mls/hr IV .[id number] [facility] Last Admin: 07/24/17 20:18 Dose: 75 mls/hr Fluconazole 100 mg/ (Miscellaneous) 50 mls @ 50 mls/hr IVPB DAILY@1800 [facility] Levetiracetam (Keppra) 500 mg PEG BID [facility] Last Admin: 07/25/17 10:06 Dose: 500 mg Metronidazole (Flagyl) 500 mg PEG TID [facility] Last Admin: 07/25/17 13:54 Dose: 500 mg Saccharomyces Boulardii (Florastor) 250 mg PEG DAILY [facility] Last Admin: 07/25/17 10:06 Dose: 250 mg Scopolamine (Transderm-Scop) 1 patch TD Q3D JOO Last Admin: 07/22/17 20:11 Dose: 1 patch Tamsulosin HCl (Flomax) 0.4 mg PEG DAILY [facility] Last Admin: 07/25/17 10:06 Dose: 0.4 mg Ticagrelor (Brilinta) 90 mg PO BID JOO - Labs Labs: 07/25/17 06:59 07/25/17 06:59 PT 10.6 SECONDS (9.7-12.2) 11/24/15 14:10 INR 1.0 11/24/15 14:10 APTT 25 SECONDS (21-34) 11/24/15 14:10 Attending/Attestation - Attestation I have personally seen and examined this patient.: Yes I have fully participated in the care of the patient.: Yes I have reviewed all pertinent clinical information, including history, physical exam and plan: Yes Notes (Text): 07/25/17 17:14 Patient was seen and examined at bedside Start patient on Diflucan because of for yeast in the urine Roro Plavix to Brilinta because of interaction with the Diflucan Continue antibiotics for acute cholecystitis No surgical intervention planned by surgery I discussed the plan of care with the resident agree with the assessment and plan documented.
[2017-07-25] MEDS: Albuterol-Ipratrop 3 mg / 0.5 (3 ml) UD INH PRN ×3 (02:09→13:23)
[2017-07-25] MEDS: Meropenem 1 GM in Sodium Chloride 0.9% 100 ML IVPB SCH ×3 (05:17→21:05)
[2017-07-25 07:06] LABS: BASO % 0.4 % (0.0-2.0); EOS # 0.5 K/uL (0.0-0.7); EOS % 4.2 % (0.0-4.0); HEMOGLOBIN 9.4 g/dL (12.0-18.0); LYMPH # 1.6 K/uL (1.0-4.3); LYMPH % 12.5 % (20.0-40.0); MEAN CELL VOLUME 88.4 fL (80.0-94.0); MEAN CORPUSCULAR HGB CONC 32.8 g/dL (33.0-37.0); MEAN PLATELET VOLUME 7.8 fL (7.2-11.7); MONO % 7.9 % (0.0-10.0); NEUT # 9.7 K/uL (1.8-7.0); RBC 3.25 Mil/uL (4.40-5.90); RED CELL DISTRIBUTION WIDTH 15.6 % (11.5-14.5); WHITE BLOOD COUNT 12.9 K/uL (4.8-10.8)
[2017-07-25 07:25] LABS: ALB/GLOB RATIO 0.7 (1.0-2.1); ALBUMIN 2.7 g/dL (3.5-5.0); ALT/SGPT 44 U/L (21-72); AST/SGOT 28 U/L (17-59); BLOOD UREA NITROGEN 6 mg/dL (9-20); GFR NON-AFRICAN AMERICAN > 60
[2017-07-25] MEDS: Ciprofloxacin 400mg/200ml D5W 400 MG/200 ML BAG IVPB SCH ×2 (08:16→19:17)
[2017-07-25] MEDS: Enoxaparin 40 mg Syringe SC SCH (10:06)
[2017-07-25] MEDS: levETIRAcetam 100 mg/ml (5ml) Oral Syringe PEG SCH ×2 (10:06→17:38)
[2017-07-25] MEDS: Saccharomyces Boulardi 250 mg Cap PEG SCH (10:06)
[2017-07-25] MEDS: SODIUM CHLORIDE 0.9% IVPB SCH (15:04)
[2017-07-25] MEDS: AMIKACIN SULFATE IVPB SCH (15:04)
[2017-07-25] MEDS: Fluconazole IV 200mg/100 ml NS 100 MG in Premixed IV 1 EA IVPB SCH (17:29)
--- NOTE | 2017-07-26 00:17 | CP.PCM.PN ---
<Tyra Yen - Last Filed: 07/26/17 00:13> Subjective - Date & Time of Evaluation Date of Evaluation: 07/26/17 Time of Evaluation: 07:00 - Subjective Subjective: PGY1- Medicine Note- Dr. Ying's Service HPI: Patient was seen and examined at bedside. ROS unattainable due to vegetative state. Objective - Vital Signs/Intake and Output Vital Signs (last 24 hours): Temp Pulse Resp BP Pulse Ox 98.8 F 84 20 112/75 96 07/25/17 15:00 07/25/17 15:00 07/25/17 15:00 07/25/17 15:00 07/25/17 15:00 Intake and Output: 07/25/17 07/26/17 18:59 06:59 Intake Total 1175 850 Output Total 950 1000 Balance 225 -150 - Medications Medications: Current Medications Acetaminophen (Tylenol 650mg/20.3ml Solution Ud) 650 mg PO Q4 PRN PRN Reason: Temperature Last Admin: 07/18/17 19:26 Dose: 650 mg Albuterol/Ipratropium (Duoneb 3 Mg/0.5 Mg (3 Ml) Ud) 3 ml INH RQ6 PRN PRN Reason: Shortness of Breath Last Admin: 07/25/17 13:23 Dose: 3 ml Aspirin (Aspirin Chewable) 81 mg PEG DAILY [facility] Last Admin: 07/25/17 10:06 Dose: 81 mg Bethanechol Chloride (Urecholine) 50 mg PEG TID [facility] Last Admin: 07/25/17 17:39 Dose: 50 mg Carvedilol (Coreg) 3.125 mg PEG BID [facility] Last Admin: 07/25/17 17:38 Dose: 3.125 mg Clopidogrel Bisulfate (Plavix) 75 mg PEG DAILY [facility] Last Admin: 07/25/17 10:06 Dose: 75 mg Emollient Ointment (Vaseline Oint) 5 gm TOP DAILY PRN PRN Reason: Dry skin Enoxaparin Sodium (Lovenox) 40 mg SC DAILY [facility] Last Admin: 07/25/17 10:06 Dose: 40 mg Famotidine (Pepcid) 20 mg PEG DAILY [facility] Last Admin: 07/25/17 10:06 Dose: 20 mg Finasteride (Proscar) 5 mg PEG DAILY [facility] Last Admin: 07/25/17 10:07 Dose: 5 mg Ciprofloxacin (Cipro 400mg/200ml Dsw) 400 mg in 200 mls @ 133 mls/hr IVPB Q12H [facility] Last Admin: 07/25/17 19:17 Dose: 133 mls/hr Amikacin Sulfate 900 mg/ (Sodium Chloride) 253.6 mls @ 169.067 mls/hr IVPB Q24H [facility] Last Admin: 07/25/17 15:04 Dose: 169.067 mls/hr Meropenem 1 gm/ Sodium (Chloride) 100 mls @ 100 mls/hr IVPB Q8 [facility] Last Admin: 07/25/17 21:05 Dose: 100 mls/hr Sodium Chloride (Sodium Chloride 0.9%) 1,000 mls @ 75 mls/hr IV .[id number] [facility] Last Admin: 07/24/17 20:18 Dose: 75 mls/hr Fluconazole 100 mg/ (Miscellaneous) 50 mls @ 50 mls/hr IVPB DAILY@1800 [facility] Last Admin: 07/25/17 17:29 Dose: 50 mls/hr Levetiracetam (Keppra) 500 mg PEG BID [facility] Last Admin: 07/25/17 17:38 Dose: 500 mg Metronidazole (Flagyl) 500 mg PEG TID [facility] Last Admin: 07/25/17 17:38 Dose: 500 mg Saccharomyces Boulardii (Florastor) 250 mg PEG DAILY [facility] Last Admin: 07/25/17 10:06 Dose: 250 mg Scopolamine (Transderm-Scop) 1 patch TD Q3D [facility] Last Admin: 07/25/17 20:15 Dose: 1 patch Tamsulosin HCl (Flomax) 0.4 mg PEG DAILY [facility] Last Admin: 07/25/17 10:06 Dose: 0.4 mg Ticagrelor (Brilinta) 90 mg PO BID [facility] Last Admin: 07/25/17 17:37 Dose: 90 mg - Labs Labs: 07/25/17 06:59 07/25/17 06:59 PT 10.6 SECONDS (9.7-12.2) 11/24/15 14:10 INR 1.0 11/24/15 14:10 APTT 25 SECONDS (21-34) 11/24/15 14:10 Assessment and Plan - Assessment and Plan (Free Text) Assessment: Yeast Infection Assessment & Plan: Urine culture positive for yeast species. fluconazole 200mg/100ml NS (07/25) Due to interaction of plavix and fluconazole, will temporarily changed patient to brilinta 90mg BID. (07/25) Rash Assessment & Plan: IV Benadryl 25mg once Hypokalemia Assessment & Plan: K+ on 07/24: 4.1 K+ on 07/23: 4.0 K+ on 07/22: 2.8, KCl 40 via peg and KCl 20 IV given in am and 40 via ped and 20 IV in afternoon K+ on 07/21: 3.0, KCl 40 given in am and 40 in afternoon K+ on 07/20: 3.0, KCl 40 given in am and 40 in afternoon Leukocytosis Assessment & Plan: 07/24: WBC 15.3 07/23: WBC 15.4 07/22: WBC 20.3 07/21: WBC increased to 20.8 f/u c dif culture f/u urine culture CT of abdomen and pelvis with po and iv contrast: gallbladder wall thickening with enhancement, possible cholecysitis - will consult surgery, help appreciated cxray 07/21: tracheostomy tube, opacity within the lingula may refelct pneumonia or atelectasis. Linear atelectasis, right mid lung. cardiomegaly WBC: 17.6 on 07/20 continue Cipro and Amikacin As per Dr. Armstrong flagyl 500 mg TID via peg tube to cover for c dif (started on 07/21) Dr. Armstrong started Meropenem 1 gm q8h on 07/22, stopped Bactrim on 07/22 midline access ordered on 07/22 Febrile Assessment & Plan: 07/24: afebrile 07/23: afebrile 07/22: Tmax : 100 at 24:00 07/21: Tmax : 99.9 at 6am 07/20: Patient afebrile since 07/18 07/18: Spiked a temperature overnight 100 degrees Temp 100.9 on 07/12, 103 on 07/16 Tylenol ordered Blood cultures (07/12) growing Stenotrophomonas Maltophilia - sensitive to Cipro - started on 400mg on 07/16 IV Q12H Urine cultures grew Proteus Mirabilis - resistant to everything except Amikacin (day 4) Blood cultures 07/16: no growth after 3 days CXR no acute disease Anoxic encephalopathy Assessment & Plan: s/p cardiac arrest in 05/2015 no acute changes Pt has non spontaneous movements. continue current management. Continue tube feeds- goal of 60ml/hr, feedings held at night due to fluid overload Urinary retention Assessment & Plan: 07/21: NS stopped because tube feeds restarted 07/20: Urine dark in color, monitor, continue NS at 50 ml per hour 07/07/17: Catheter flushed, patient output approx. 500mL within one hour post flush. 06/27/17: Continue bladder massages to aid in voiding. 06/25/17: Patient voids with movement. Continue bladder massages to aid in voiding. 06/23/17: Patient will need to have daily bladder massage to allow for complete voiding 06/17/17: Nursing communication placed in: straight catherization with bladder scan> 100ml 06/08: urinary retention yesterday, was given 40mg lasix iv and patient was able to urinate through condom baker Take note condom cath not always securely in place so Is and Os are approximate as patient does wet bed Ordered- new condom catheter on 05/22/17 Flomax 0.4mg PEG daily Proscar 5mg PEG daily continue Bethanecol 50mg PEG TID- started after persistent retention and found to be effective. monitor I's and O's Check bladder scan for residual urine three times weekly Respiratory failure Assessment & Plan: Trach in place, continue daily monitoring for secretions. No change in management at this time. Continue with aggressive suctioning multiple times a day per respiratory therapist. Monitor for signs of respiratory distress Thick secretions Duoneb 3ml INH Q6 and Mucomyst 4ml INH Q6H Robitussin 100mg PEG Q12H Scopolamine 1 patch TD Q3D JOO Repeat CXR on 05/28/17: linear increased consolidative changes in the right mid- lung zone and left lung base which may represent atelectasis and/or infiltrate. Questionable trace left pleural effusion. moderate venous congestion. cardiomegaly. degenerative changes in the spine and shoulders Sacral ulcer Assessment & Plan: Healed Cont with offloading/cushioning/turning Continue frequent turning, protective ointment and skin checks. History of coronary artery disease Assessment & Plan: s/p cardiac stents on 06/13/15 Cont ASA 81mg via PEG daily Cont Coreg 3.125mg PEG BID Cont Plavix 75mg PO daily Seizures Assessment & Plan: Continue Keppra 500mg PEG BID for seizure prophylaxis Monitor for activity Lower extremity edema Assessment & Plan: Improved SCDs in place Pressure ulcer boots on b/l Continue to monitor Prophylactic measure Assessment & Plan: Pepcid 20 mg PEG BID Lovenox 40mg SC daily SCDs and offloading boots continue to turn and reposition q2hrs Continue to monitor medication administrations and clinical presentation weekly labs. vasoline ointment applied to feet prn to prevent hyperkeratosis Please hold feeding from 10pm-6am, placed into nursing communication tube feedings held (07/22) until ct abdomen comes back NS @75ml/hr <Donnell Ying - Last Filed: 07/26/17 13:39> Objective - Vital Signs/Intake and Output Vital Signs (last 24 hours): Temp Pulse Resp BP Pulse Ox 98.8 F 92 H 23 109/72 95 07/26/17 08:00 07/26/17 08:00 07/26/17 08:00 07/26/17 08:00 07/26/17 08:00 Intake and Output: 07/26/17 07/26/17 06:59 18:59 Intake Total 1700 Output Total 1400 Balance 300 - Medications Medications: Current Medications Acetaminophen (Tylenol 650mg/20.3ml Solution Ud) 650 mg PO Q4 PRN PRN Reason: Temperature Last Admin: 07/18/17 19:26 Dose: 650 mg Albuterol/Ipratropium (Duoneb 3 Mg/0.5 Mg (3 Ml) Ud) 3 ml INH RQ6 PRN PRN Reason: Shortness of Breath Last Admin: 07/26/17 07:48 Dose: 3 ml Aspirin (Aspirin Chewable) 81 mg PEG DAILY [facility] Last Admin: 07/26/17 09:46 Dose: 81 mg Bethanechol Chloride (Urecholine) 50 mg PEG TID [facility] Last Admin: 07/26/17 13:37 Dose: 50 mg Carvedilol (Coreg) 3.125 mg PEG BID [facility] Last Admin: 07/26/17 09:46 Dose: 3.125 mg Clopidogrel Bisulfate (Plavix) 75 mg PEG DAILY [facility] Last Admin: 07/25/17 10:06 Dose: 75 mg Emollient Ointment (Vaseline Oint) 5 gm TOP DAILY PRN PRN Reason: Dry skin Enoxaparin Sodium (Lovenox) 40 mg SC DAILY [facility] Last Admin: 07/26/17 09:46 Dose: 40 mg Famotidine (Pepcid) 20 mg PEG DAILY [facility] Last Admin: 07/26/17 09:46 Dose: 20 mg Finasteride (Proscar) 5 mg PEG DAILY [facility] Last Admin: 07/26/17 09:47 Dose: 5 mg Ciprofloxacin (Cipro 400mg/200ml Dsw) 400 mg in 200 mls @ 133 mls/hr IVPB Q12H [facility] Last Admin: 07/26/17 08:11 Dose: 133 mls/hr Amikacin Sulfate 900 mg/ (Sodium Chloride) 253.6 mls @ 169.067 mls/hr IVPB Q24H [facility] Last Admin: 07/25/17 15:04 Dose: 169.067 mls/hr Meropenem 1 gm/ Sodium (Chloride) 100 mls @ 100 mls/hr IVPB Q8 [facility] Last Admin: 07/26/17 13:37 Dose: 100 mls/hr Sodium Chloride (Sodium Chloride 0.9%) 1,000 mls @ 75 mls/hr IV .[id number] [facility] Last Admin: 07/26/17 09:47 Dose: Not Given Fluconazole 100 mg/ (Miscellaneous) 50 mls @ 50 mls/hr IVPB DAILY@1800 [facility] Last Admin: 07/25/17 17:29 Dose: 50 mls/hr Levetiracetam (Keppra) 500 mg PEG BID [facility] Last Admin: 07/26/17 09:47 Dose: 500 mg Metronidazole (Flagyl) 500 mg PEG TID [facility] Last Admin: 07/26/17 13:37 Dose: 500 mg Saccharomyces Boulardii (Florastor) 250 mg PEG DAILY [facility] Last Admin: 07/26/17 09:46 Dose: 250 mg Scopolamine (Transderm-Scop) 1 patch TD Q3D [facility] Last Admin: 07/25/17 20:15 Dose: 1 patch Tamsulosin HCl (Flomax) 0.4 mg PEG DAILY [facility] Last Admin: 07/26/17 09:46 Dose: 0.4 mg Ticagrelor (Brilinta) 90 mg PO BID [facility] Last Admin: 07/26/17 09:47 Dose: 90 mg - Labs Labs: 07/26/17 08:05 07/26/17 08:05 PT 10.6 SECONDS (9.7-12.2) 11/24/15 14:10 INR 1.0 11/24/15 14:10 APTT 25 SECONDS (21-34) 11/24/15 14:10 Attending/Attestation - Attestation I have personally seen and examined this patient.: Yes I have fully participated in the care of the patient.: Yes I have reviewed all pertinent clinical information, including history, physical exam and plan: Yes Notes (Text): 07/26/17 13:39 Patient was seen and examined at bedside with the resident We will continue antibiotics for acute cholecystitis Patient is not a candidate for surgery Continue Diflucan for yeast in the urine Discussed the plan of care with the resident and agree with the assessment plan recommended.
[2017-07-26] MEDS: Sodium Chloride 0.9% 1,000 ML IV SCH ×2 (04:00→09:47)
[2017-07-26] MEDS: Meropenem 1 GM in Sodium Chloride 0.9% 100 ML IVPB SCH ×3 (05:20→21:38)
[2017-07-26] MEDS: Albuterol-Ipratrop 3 mg / 0.5 (3 ml) UD INH PRN ×2 (07:48→19:32)
[2017-07-26] MEDS: Ciprofloxacin 400mg/200ml D5W 400 MG/200 ML BAG IVPB SCH ×2 (08:11→19:44)
[2017-07-26 08:14] LABS: BASO % 0.2 % (0.0-2.0); EOS # 0.5 K/uL (0.0-0.7); EOS % 4.1 % (0.0-4.0); HEMOGLOBIN 9.2 g/dL (12.0-18.0); LYMPH # 1.5 K/uL (1.0-4.3); LYMPH % 12.4 % (20.0-40.0); MEAN CELL VOLUME 87.3 fL (80.0-94.0); MEAN CORPUSCULAR HGB CONC 32.1 g/dL (33.0-37.0); MONO % 7.8 % (0.0-10.0); NEUT # 9.2 K/uL (1.8-7.0); NEUT % 75.5 % (50.0-75.0); NRBC % 0.1 % (0.0-2.0); RBC 3.29 Mil/uL (4.40-5.90); RED CELL DISTRIBUTION WIDTH 15.5 % (11.5-14.5); WHITE BLOOD COUNT 12.1 K/uL (4.8-10.8)
[2017-07-26 08:46] LABS: ALB/GLOB RATIO 0.7 (1.0-2.1); ALBUMIN 2.6 g/dL (3.5-5.0); ALT/SGPT 50 U/L (21-72); AST/SGOT 43 U/L (17-59); BLOOD UREA NITROGEN 6 mg/dL (9-20); CALCIUM 7.9 mg/dl (8.6-10.4); GFR NON-AFRICAN AMERICAN > 60
[2017-07-26] MEDS: Enoxaparin 40 mg Syringe SC SCH (09:46)
[2017-07-26] MEDS: Saccharomyces Boulardi 250 mg Cap PEG SCH (09:46)
[2017-07-26] MEDS: levETIRAcetam 100 mg/ml (5ml) Oral Syringe PEG SCH ×2 (09:47→17:34)
[2017-07-26] MEDS: AMIKACIN SULFATE IVPB SCH (15:19)
[2017-07-26] MEDS: SODIUM CHLORIDE 0.9% IVPB SCH (15:19)
[2017-07-26] MEDS: Fluconazole IV 200mg/100 ml NS 100 MG in Premixed IV 1 EA IVPB SCH (17:32)
[2017-07-27] MEDS: Meropenem 1 GM in Sodium Chloride 0.9% 100 ML IVPB SCH ×3 (05:00→21:25)
[2017-07-27] MEDS: Ciprofloxacin 400mg/200ml D5W 400 MG/200 ML BAG IVPB SCH ×2 (07:34→19:27)
--- NOTE | 2017-07-27 07:35 | CP.PCM.PN ---
<Josue Denson - Last Filed: 07/27/17 07:36> Subjective - Date & Time of Evaluation Date of Evaluation: 07/27/17 Time of Evaluation: 07:34 - Subjective Subjective: PGY1 Note for Dr. Chavis HPI: Patient was seen and examined at bedside. ROS unattainable due to vegetative state. Objective - Vital Signs/Intake and Output Vital Signs (last 24 hours): Temp Pulse Resp BP Pulse Ox 98.4 F 95 H 20 108/77 98 07/27/17 07:17 07/27/17 07:17 07/27/17 07:17 07/27/17 07:17 07/27/17 07:17 Intake and Output: 07/27/17 07/27/17 06:59 18:59 Intake Total 1850 Output Total 1600 Balance 250 - Medications Medications: Current Medications Acetaminophen (Tylenol 650mg/20.3ml Solution Ud) 650 mg PO Q4 PRN PRN Reason: Temperature Last Admin: 07/18/17 19:26 Dose: 650 mg Albuterol/Ipratropium (Duoneb 3 Mg/0.5 Mg (3 Ml) Ud) 3 ml INH RQ6 PRN PRN Reason: Shortness of Breath Last Admin: 07/26/17 19:32 Dose: 3 ml Aspirin (Aspirin Chewable) 81 mg PEG DAILY [facility] Last Admin: 07/26/17 09:46 Dose: 81 mg Bethanechol Chloride (Urecholine) 50 mg PEG TID [facility] Last Admin: 07/26/17 17:35 Dose: 50 mg Carvedilol (Coreg) 3.125 mg PEG BID [facility] Last Admin: 07/26/17 17:32 Dose: 3.125 mg Clopidogrel Bisulfate (Plavix) 75 mg PEG DAILY [facility] Last Admin: 07/25/17 10:06 Dose: 75 mg Emollient Ointment (Vaseline Oint) 5 gm TOP DAILY PRN PRN Reason: Dry skin Enoxaparin Sodium (Lovenox) 40 mg SC DAILY [facility] Last Admin: 07/26/17 09:46 Dose: 40 mg Famotidine (Pepcid) 20 mg PEG DAILY [facility] Last Admin: 07/26/17 09:46 Dose: 20 mg Finasteride (Proscar) 5 mg PEG DAILY [facility] Last Admin: 07/26/17 09:47 Dose: 5 mg Ciprofloxacin (Cipro 400mg/200ml Dsw) 400 mg in 200 mls @ 133 mls/hr IVPB Q12H [facility] Last Admin: 07/26/17 19:44 Dose: 133 mls/hr Amikacin Sulfate 900 mg/ (Sodium Chloride) 253.6 mls @ 169.067 mls/hr IVPB Q24H [facility] Last Admin: 07/26/17 15:19 Dose: 169.067 mls/hr Meropenem 1 gm/ Sodium (Chloride) 100 mls @ 100 mls/hr IVPB Q8 [facility] Last Admin: 07/27/17 05:00 Dose: 100 mls/hr Fluconazole 100 mg/ (Miscellaneous) 50 mls @ 50 mls/hr IVPB DAILY@1800 [facility] Last Admin: 07/26/17 17:32 Dose: 50 mls/hr Levetiracetam (Keppra) 500 mg PEG BID [facility] Last Admin: 07/26/17 17:34 Dose: 500 mg Saccharomyces Boulardii (Florastor) 250 mg PEG DAILY [facility] Last Admin: 07/26/17 09:46 Dose: 250 mg Scopolamine (Transderm-Scop) 1 patch TD Q3D [facility] Last Admin: 07/25/17 20:15 Dose: 1 patch Tamsulosin HCl (Flomax) 0.4 mg PEG DAILY [facility] Last Admin: 07/26/17 09:46 Dose: 0.4 mg Ticagrelor (Brilinta) 90 mg PO BID [facility] Last Admin: 07/26/17 18:21 Dose: 90 mg - Labs Labs: 07/26/17 08:05 07/26/17 08:05 PT 10.6 SECONDS (9.7-12.2) 11/24/15 14:10 INR 1.0 11/24/15 14:10 APTT 25 SECONDS (21-34) 11/24/15 14:10 - Constitutional Appears: Chronically Ill - Head Exam Head Exam: ATRAUMATIC, NORMAL INSPECTION, NORMOCEPHALIC - ENT Exam ENT Exam: Mucous Membranes Moist - Neck Exam Additional comments: trach - Respiratory Exam Respiratory Exam: NORMAL BREATHING PATTERN - Cardiovascular Exam Cardiovascular Exam: REGULAR RHYTHM - GI/Abdominal Exam GI & Abdominal Exam: Soft, Normal Bowel Sounds. absent: Distended, Firm, Tenderness - Extremities Exam Extremities Exam: Joint Swelling (2+ pitting edema of L. hand) - Neurological Exam Neurological Exam: Altered - Skin Skin Exam: Dry, Intact, Normal Color, Warm Assessment and Plan - Assessment and Plan (Free Text) Assessment: Yeast Infection Assessment & Plan: Urine culture positive for yeast species. fluconazole 200mg/100ml NS (07/25) Due to interaction of plavix and fluconazole, will temporarily changed patient to brilinta 90mg BID. (07/25) Rash Assessment & Plan: IV Benadryl 25mg once Hypokalemia Assessment & Plan: K+ on 07/24: 4.1 K+ on 07/23: 4.0 K+ on 07/22: 2.8, KCl 40 via peg and KCl 20 IV given in am and 40 via ped and 20 IV in afternoon K+ on 07/21: 3.0, KCl 40 given in am and 40 in afternoon K+ on 07/20: 3.0, KCl 40 given in am and 40 in afternoon Leukocytosis Assessment & Plan: 07/24: WBC 15.3 07/23: WBC 15.4 07/22: WBC 20.3 07/21: WBC increased to 20.8 f/u c dif culture f/u urine culture CT of abdomen and pelvis with po and iv contrast: gallbladder wall thickening with enhancement, possible cholecysitis - will consult surgery, help appreciated cxray 07/21: tracheostomy tube, opacity within the lingula may refelct pneumonia or atelectasis. Linear atelectasis, right mid lung. cardiomegaly WBC: 17.6 on 07/20 continue Cipro and Amikacin As per Dr. Armstrong flagyl 500 mg TID via peg tube to cover for c dif (started on 07/21) Dr. Armstrong started Meropenem 1 gm q8h on 07/22, stopped Bactrim on 07/22 midline access ordered on 07/22 Febrile Assessment & Plan: 07/24: afebrile 07/23: afebrile 07/22: Tmax : 100 at 24:00 07/21: Tmax : 99.9 at 6am 07/20: Patient afebrile since 07/18 07/18: Spiked a temperature overnight 100 degrees Temp 100.9 on 07/12, 103 on 07/16 Tylenol ordered Blood cultures (07/12) growing Stenotrophomonas Maltophilia - sensitive to Cipro - started on 400mg on 07/16 IV Q12H Urine cultures grew Proteus Mirabilis - resistant to everything except Amikacin (day 4) Blood cultures 07/16: no growth after 3 days CXR no acute disease Anoxic encephalopathy Assessment & Plan: s/p cardiac arrest in 05/2015 no acute changes Pt has non spontaneous movements. continue current management. Continue tube feeds- goal of 60ml/hr, feedings held at night due to fluid overload Urinary retention Assessment & Plan: 07/21: NS stopped because tube feeds restarted 07/20: Urine dark in color, monitor, continue NS at 50 ml per hour 07/07/17: Catheter flushed, patient output approx. 500mL within one hour post flush. 06/27/17: Continue bladder massages to aid in voiding. 06/25/17: Patient voids with movement. Continue bladder massages to aid in voiding. 06/23/17: Patient will need to have daily bladder massage to allow for complete voiding 06/17/17: Nursing communication placed in: straight catherization with bladder scan> 100ml 06/08: urinary retention yesterday, was given 40mg lasix iv and patient was able to urinate through condom baker Take note condom cath not always securely in place so Is and Os are approximate as patient does wet bed Ordered- new condom catheter on 05/22/17 Flomax 0.4mg PEG daily Proscar 5mg PEG daily continue Bethanecol 50mg PEG TID- started after persistent retention and found to be effective. monitor I's and O's Check bladder scan for residual urine three times weekly Respiratory failure Assessment & Plan: Trach in place, continue daily monitoring for secretions. No change in management at this time. Continue with aggressive suctioning multiple times a day per respiratory therapist. Monitor for signs of respiratory distress Thick secretions Duoneb 3ml INH Q6 and Mucomyst 4ml INH Q6H Robitussin 100mg PEG Q12H Scopolamine 1 patch TD Q3D JOO Repeat CXR on 05/28/17: linear increased consolidative changes in the right mid- lung zone and left lung base which may represent atelectasis and/or infiltrate. Questionable trace left pleural effusion. moderate venous congestion. cardiomegaly. degenerative changes in the spine and shoulders Sacral ulcer Assessment & Plan: Healed Cont with offloading/cushioning/turning Continue frequent turning, protective ointment and skin checks. History of coronary artery disease Assessment & Plan: s/p cardiac stents on 06/13/15 Cont ASA 81mg via PEG daily Cont Coreg 3.125mg PEG BID Cont Plavix 75mg PO daily Seizures Assessment & Plan: Continue Keppra 500mg PEG BID for seizure prophylaxis Monitor for activity Lower extremity edema Assessment & Plan: Improved SCDs in place Pressure ulcer boots on b/l Continue to monitor Prophylactic measure Assessment & Plan: Pepcid 20 mg PEG BID Lovenox 40mg SC daily SCDs and offloading boots continue to turn and reposition q2hrs Continue to monitor medication administrations and clinical presentation weekly labs. vasoline ointment applied to feet prn to prevent hyperkeratosis Please hold feeding from 10pm-6am, placed into nursing communication tube feedings held (07/22) until ct abdomen comes back NS @75ml/hr <Amandeep Chavis H - Last Filed: 07/27/17 15:07> Objective - Vital Signs/Intake and Output Vital Signs (last 24 hours): Temp Pulse Resp BP Pulse Ox 98.4 F 95 H 20 108/77 98 07/27/17 07:17 07/27/17 07:17 07/27/17 07:17 07/27/17 07:17 07/27/17 07:17 Intake and Output: 07/27/17 07/27/17 06:59 18:59 Intake Total 1850 Output Total 1600 Balance 250 - Medications Medications: Current Medications Acetaminophen (Tylenol 650mg/20.3ml Solution Ud) 650 mg PO Q4 PRN PRN Reason: Temperature Last Admin: 07/18/17 19:26 Dose: 650 mg Aspirin (Aspirin Chewable) 81 mg PEG DAILY [facility] Last Admin: 07/27/17 10:16 Dose: 81 mg Bethanechol Chloride (Urecholine) 50 mg PEG TID [facility] Last Admin: 07/27/17 13:50 Dose: 50 mg Carvedilol (Coreg) 3.125 mg PEG BID [facility] Last Admin: 07/27/17 09:44 Dose: 3.125 mg Clopidogrel Bisulfate (Plavix) 75 mg PEG DAILY [facility] Last Admin: 07/25/17 10:06 Dose: 75 mg Emollient Ointment (Vaseline Oint) 5 gm TOP DAILY PRN PRN Reason: Dry skin Last Admin: 07/27/17 09:43 Dose: 5 gm Enoxaparin Sodium (Lovenox) 40 mg SC DAILY [facility] Famotidine (Pepcid) 20 mg PEG DAILY [facility] Last Admin: 07/27/17 09:44 Dose: 20 mg Finasteride (Proscar) 5 mg PEG DAILY [facility] Last Admin: 07/27/17 09:43 Dose: 5 mg Ciprofloxacin (Cipro 400mg/200ml Dsw) 400 mg in 200 mls @ 133 mls/hr IVPB Q12H [facility] Last Admin: 07/27/17 07:34 Dose: 133 mls/hr Meropenem 1 gm/ Sodium (Chloride) 100 mls @ 100 mls/hr IVPB Q8 [facility] Last Admin: 07/27/17 13:51 Dose: 100 mls/hr Fluconazole 100 mg/ (Miscellaneous) 50 mls @ 50 mls/hr IVPB DAILY@1800 [facility] Last Admin: 07/26/17 17:32 Dose: 50 mls/hr Levetiracetam (Keppra) 500 mg PEG BID [facility] Last Admin: 07/27/17 09:43 Dose: 500 mg Saccharomyces Boulardii (Florastor) 250 mg PEG DAILY [facility] Last Admin: 07/27/17 10:16 Dose: 250 mg Scopolamine (Transderm-Scop) 1 patch TD Q3D [facility] Last Admin: 07/25/17 20:15 Dose: 1 patch Tamsulosin HCl (Flomax) 0.4 mg PEG DAILY [facility] Last Admin: 07/27/17 10:16 Dose: 0.4 mg Ticagrelor (Brilinta) 90 mg PO BID [facility] Last Admin: 07/27/17 09:42 Dose: 90 mg - Labs Labs: 07/27/17 08:34 07/27/17 08:34 PT 10.6 SECONDS (9.7-12.2) 11/24/15 14:10 INR 1.0 11/24/15 14:10 APTT 25 SECONDS (21-34) 11/24/15 14:10 Assessment and Plan (1) Prophylactic measure Status: Acute (2) Anoxic encephalopathy Status: Chronic (3) STEMI (ST elevation myocardial infarction) Status: Acute (4) Cardiac arrest Status: Acute (5) Seizures Status: Acute (6) Respiratory failure Status: Chronic Attending/Attestation - Attestation I have personally seen and examined this patient.: Yes I have fully participated in the care of the patient.: Yes I have reviewed all pertinent clinical information, including history, physical exam and plan: Yes
[2017-07-27] MEDS: Albuterol-Ipratrop 3 mg / 0.5 (3 ml) UD INH PRN ×2 (07:44→13:11)
[2017-07-27 08:49] LABS: BASO % 0.3 % (0.0-2.0); EOS # 0.4 K/uL (0.0-0.7); HEMOGLOBIN 9.4 g/dL (12.0-18.0); LYMPH # 1.6 K/uL (1.0-4.3); LYMPH % 14.1 % (20.0-40.0); MEAN CELL VOLUME 88.6 fL (80.0-94.0); MEAN CORPUSCULAR HEMOGLOBIN 29.2 pg (27.0-31.0); MEAN PLATELET VOLUME 7.2 fL (7.2-11.7); MONO # 0.8 K/uL (0.0-0.8); MONO % 7.4 % (0.0-10.0); NEUT # 8.3 K/uL (1.8-7.0); NEUT % 74.2 % (50.0-75.0); RBC 3.22 Mil/uL (4.40-5.90); RED CELL DISTRIBUTION WIDTH 15.3 % (11.5-14.5); WHITE BLOOD COUNT 11.2 K/uL (4.8-10.8)
[2017-07-27 08:59] LABS: ALB/GLOB RATIO 0.6 (1.0-2.1); ALBUMIN 2.6 g/dL (3.5-5.0); ALT/SGPT 40 U/L (21-72); AST/SGOT 31 U/L (17-59); BLOOD UREA NITROGEN 6 mg/dL (9-20); GFR NON-AFRICAN AMERICAN > 60
[2017-07-27] MEDS: Petrolatum Oint Foilpak (5 gm) TOP PRN (09:43)
[2017-07-27] MEDS: levETIRAcetam 100 mg/ml (5ml) Oral Syringe PEG SCH ×2 (09:43→17:36)
[2017-07-27] MEDS: Enoxaparin 40 mg Syringe SC SCH (09:44)
[2017-07-27] MEDS: Saccharomyces Boulardi 250 mg Cap PEG SCH (10:16)
[2017-07-27] MEDS: Fluconazole IV 200mg/100 ml NS 100 MG in Premixed IV 1 EA IVPB SCH (17:37)
[2017-07-27] MEDS: Sodium Chloride 0.9% 1,000 ML IV SCH ×2 (18:00)
[2017-07-28] MEDS: Meropenem 1 GM in Sodium Chloride 0.9% 100 ML IVPB SCH ×3 (05:00→21:39)
[2017-07-28] MEDS: Ciprofloxacin 400mg/200ml D5W 400 MG/200 ML BAG IVPB SCH ×2 (07:29→20:07)
[2017-07-28] MEDS: Sodium Chloride 0.9% 1,000 ML IV SCH ×2 (07:35→18:40)
[2017-07-28] MEDS: levETIRAcetam 100 mg/ml (5ml) Oral Syringe PEG SCH ×2 (09:37→17:56)
[2017-07-28] MEDS: Saccharomyces Boulardi 250 mg Cap PEG SCH (09:38)
--- NOTE | 2017-07-28 13:28 | CP.PCM.PN ---
<Josue Denson - Last Filed: 07/28/17 13:41> Subjective - Date & Time of Evaluation Date of Evaluation: 07/28/17 Time of Evaluation: 13:26 - Subjective Subjective: PGY1 Note for Dr. Chavis HPI: Patient seen and examined at bedside. ROS unattainable due to Anoxic brain injury. Objective - Vital Signs/Intake and Output Vital Signs (last 24 hours): Temp Pulse Resp BP Pulse Ox 98.5 F 88 20 132/83 99 07/28/17 07:37 07/28/17 07:37 07/28/17 07:37 07/28/17 07:37 07/28/17 07:37 Intake and Output: 07/28/17 07/28/17 06:59 18:59 Intake Total 2500 Output Total 2100 Balance 400 - Medications Medications: Current Medications Acetaminophen (Tylenol 650mg/20.3ml Solution Ud) 650 mg PO Q4 PRN PRN Reason: Temperature Last Admin: 07/18/17 19:26 Dose: 650 mg Aspirin (Aspirin Chewable) 81 mg PEG DAILY [facility] Last Admin: 07/28/17 09:37 Dose: 81 mg Bethanechol Chloride (Urecholine) 50 mg PEG TID [facility] Last Admin: 07/28/17 09:38 Dose: 50 mg Carvedilol (Coreg) 3.125 mg PEG BID [facility] Last Admin: 07/28/17 09:38 Dose: 3.125 mg Clopidogrel Bisulfate (Plavix) 75 mg PEG DAILY [facility] Last Admin: 07/25/17 10:06 Dose: 75 mg Emollient Ointment (Vaseline Oint) 5 gm TOP DAILY PRN PRN Reason: Dry skin Last Admin: 07/27/17 09:43 Dose: 5 gm Enoxaparin Sodium (Lovenox) 40 mg SC DAILY [facility] Last Admin: 07/28/17 09:36 Dose: 40 mg Famotidine (Pepcid) 20 mg PEG DAILY [facility] Last Admin: 07/28/17 09:38 Dose: 20 mg Finasteride (Proscar) 5 mg PEG DAILY [facility] Last Admin: 07/28/17 09:38 Dose: 5 mg Ciprofloxacin (Cipro 400mg/200ml Dsw) 400 mg in 200 mls @ 133 mls/hr IVPB Q12H [facility] Last Admin: 07/28/17 07:29 Dose: 133 mls/hr Meropenem 1 gm/ Sodium (Chloride) 100 mls @ 100 mls/hr IVPB Q8 [facility] Last Admin: 07/28/17 05:00 Dose: 100 mls/hr Fluconazole 100 mg/ (Miscellaneous) 50 mls @ 50 mls/hr IVPB DAILY@1800 [facility] Last Admin: 07/27/17 17:37 Dose: 50 mls/hr Sodium Chloride (Sodium Chloride 0.9%) 1,000 mls @ 75 mls/hr IV .[id number] [facility] Last Admin: 07/27/17 18:00 Dose: Not Given Levetiracetam (Keppra) 500 mg PEG BID [facility] Last Admin: 07/28/17 09:37 Dose: 500 mg Saccharomyces Boulardii (Florastor) 250 mg PEG DAILY [facility] Last Admin: 07/28/17 09:38 Dose: 250 mg Scopolamine (Transderm-Scop) 1 patch TD Q3D [facility] Last Admin: 07/25/17 20:15 Dose: 1 patch Tamsulosin HCl (Flomax) 0.4 mg PEG DAILY [facility] Last Admin: 07/28/17 09:37 Dose: 0.4 mg Ticagrelor (Brilinta) 90 mg PO BID [facility] Last Admin: 07/28/17 09:37 Dose: 90 mg - Labs Labs: 07/27/17 08:34 07/27/17 08:34 PT 10.6 SECONDS (9.7-12.2) 11/24/15 14:10 INR 1.0 11/24/15 14:10 APTT 25 SECONDS (21-34) 11/24/15 14:10 - Constitutional Appears: Chronically Ill - Head Exam Head Exam: ATRAUMATIC, NORMAL INSPECTION, NORMOCEPHALIC - Eye Exam Eye Exam: absent: EOMI - ENT Exam ENT Exam: Mucous Membranes Moist - Respiratory Exam Respiratory Exam: NORMAL BREATHING PATTERN - Cardiovascular Exam Cardiovascular Exam: REGULAR RHYTHM - GI/Abdominal Exam GI & Abdominal Exam: Soft, Normal Bowel Sounds. absent: Distended, Tenderness - Extremities Exam Extremities Exam: Joint Swelling Additional comments: bilateral hand swelling - Neurological Exam Neurological Exam: Alert, Awake, Oriented x3 - Psychiatric Exam Psychiatric exam: Normal Affect, Normal Mood - Skin Skin Exam: Dry, Intact, Normal Color, Warm Assessment and Plan - Assessment and Plan (Free Text) Assessment: Hypokalemia Assessment & Plan: K+ on 07/24: 4.1 K+ on 07/23: 4.0 K+ on 07/22: 2.8, KCl 40 via peg and KCl 20 IV given in am and 40 via ped and 20 IV in afternoon K+ on 07/21: 3.0, KCl 40 given in am and 40 in afternoon K+ on 07/20: 3.0, KCl 40 given in am and 40 in afternoon Leukocytosis Assessment & Plan: 07/24: WBC 15.3 07/23: WBC 15.4 07/22: WBC 20.3 07/21: WBC increased to 20.8 f/u c dif culture f/u urine culture CT of abdomen and pelvis with po and iv contrast: gallbladder wall thickening with enhancement, possible cholecysitis - will consult surgery, help appreciated cxray 07/21: tracheostomy tube, opacity within the lingula may refelct pneumonia or atelectasis. Linear atelectasis, right mid lung. cardiomegaly WBC: 17.6 on 07/20 continue Cipro and Amikacin As per Dr. Armstrong flagyl 500 mg TID via peg tube to cover for c dif (started on 07/21) Dr. Armstrong started Meropenem 1 gm q8h on 07/22, stopped Bactrim on 07/22 midline access ordered on 07/22 Febrile Assessment & Plan: 07/24: afebrile 07/23: afebrile 07/22: Tmax : 100 at 24:00 07/21: Tmax : 99.9 at 6am 07/20: Patient afebrile since 07/18 07/18: Spiked a temperature overnight 100 degrees Temp 100.9 on 07/12, 103 on 07/16 Tylenol ordered Blood cultures (07/12) growing Stenotrophomonas Maltophilia - sensitive to Cipro - started on 400mg on 07/16 IV Q12H Urine cultures grew Proteus Mirabilis - resistant to everything except Amikacin (day 4) Blood cultures 07/16: no growth after 3 days CXR no acute disease Anoxic encephalopathy Assessment & Plan: s/p cardiac arrest in 05/2015 no acute changes Pt has non spontaneous movements. continue current management. Continue tube feeds- goal of 60ml/hr, feedings held at night due to fluid overload Urinary retention Assessment & Plan: 07/21: NS stopped because tube feeds restarted 07/20: Urine dark in color, monitor, continue NS at 50 ml per hour 07/07/17: Catheter flushed, patient output approx. 500mL within one hour post flush. 06/27/17: Continue bladder massages to aid in voiding. 06/25/17: Patient voids with movement. Continue bladder massages to aid in voiding. 06/23/17: Patient will need to have daily bladder massage to allow for complete voiding 06/17/17: Nursing communication placed in: straight catherization with bladder scan> 100ml 06/08: urinary retention yesterday, was given 40mg lasix iv and patient was able to urinate through condom baker Take note condom cath not always securely in place so Is and Os are approximate as patient does wet bed Ordered- new condom catheter on 05/22/17 Flomax 0.4mg PEG daily Proscar 5mg PEG daily continue Bethanecol 50mg PEG TID- started after persistent retention and found to be effective. monitor I's and O's Check bladder scan for residual urine three times weekly Respiratory failure Assessment & Plan: Trach in place, continue daily monitoring for secretions. No change in management at this time. Continue with aggressive suctioning multiple times a day per respiratory therapist. Monitor for signs of respiratory distress Thick secretions Duoneb 3ml INH Q6 and Mucomyst 4ml INH Q6H Robitussin 100mg PEG Q12H Scopolamine 1 patch TD Q3D JOO Repeat CXR on 05/28/17: linear increased consolidative changes in the right mid- lung zone and left lung base which may represent atelectasis and/or infiltrate. Questionable trace left pleural effusion. moderate venous congestion. cardiomegaly. degenerative changes in the spine and shoulders Sacral ulcer Assessment & Plan: Healed Cont with offloading/cushioning/turning Continue frequent turning, protective ointment and skin checks. History of coronary artery disease Assessment & Plan: s/p cardiac stents on 06/13/15 Cont ASA 81mg via PEG daily Cont Coreg 3.125mg PEG BID Seizures Assessment & Plan: Continue Keppra 500mg PEG BID for seizure prophylaxis Monitor for activity Lower extremity edema Assessment & Plan: Improved SCDs in place Pressure ulcer boots on b/l Continue to monitor Prophylactic measure Assessment & Plan: Pepcid 20 mg PEG BID Lovenox 40mg SC daily SCDs and offloading boots continue to turn and reposition q2hrs Continue to monitor medication administrations and clinical presentation weekly labs. vasoline ointment applied to feet prn to prevent hyperkeratosis Please hold feeding from 10pm-6am, placed into nursing communication tube feedings held (07/22) until ct abdomen comes back NS @75ml/hr <Chavis,Amandeep Michelle - Last Filed: 07/28/17 14:47> Objective - Vital Signs/Intake and Output Vital Signs (last 24 hours): Temp Pulse Resp BP Pulse Ox 98.5 F 88 20 132/83 99 07/28/17 07:37 07/28/17 07:37 07/28/17 07:37 07/28/17 07:37 07/28/17 07:37 Intake and Output: 07/28/17 07/28/17 06:59 18:59 Intake Total 2500 Output Total 2100 Balance 400 - Medications Medications: Current Medications Acetaminophen (Tylenol 650mg/20.3ml Solution Ud) 650 mg PO Q4 PRN PRN Reason: Temperature Last Admin: 07/18/17 19:26 Dose: 650 mg Aspirin (Aspirin Chewable) 81 mg PEG DAILY [facility] Last Admin: 07/28/17 09:37 Dose: 81 mg Bethanechol Chloride (Urecholine) 50 mg PEG TID [facility] Last Admin: 07/28/17 13:38 Dose: 50 mg Carvedilol (Coreg) 3.125 mg PEG BID [facility] Last Admin: 07/28/17 09:38 Dose: 3.125 mg Clopidogrel Bisulfate (Plavix) 75 mg PEG DAILY [facility] Last Admin: 07/25/17 10:06 Dose: 75 mg Emollient Ointment (Vaseline Oint) 5 gm TOP DAILY PRN PRN Reason: Dry skin Last Admin: 07/27/17 09:43 Dose: 5 gm Enoxaparin Sodium (Lovenox) 40 mg SC DAILY [facility] Last Admin: 07/28/17 09:36 Dose: 40 mg Famotidine (Pepcid) 20 mg PEG DAILY [facility] Last Admin: 07/28/17 09:38 Dose: 20 mg Finasteride (Proscar) 5 mg PEG DAILY [facility] Last Admin: 07/28/17 09:38 Dose: 5 mg Ciprofloxacin (Cipro 400mg/200ml Dsw) 400 mg in 200 mls @ 133 mls/hr IVPB Q12H [facility] Last Admin: 07/28/17 07:29 Dose: 133 mls/hr Meropenem 1 gm/ Sodium (Chloride) 100 mls @ 100 mls/hr IVPB Q8 [facility] Last Admin: 07/28/17 13:38 Dose: 100 mls/hr Fluconazole 100 mg/ (Miscellaneous) 50 mls @ 50 mls/hr IVPB DAILY@1800 [facility] Last Admin: 07/27/17 17:37 Dose: 50 mls/hr Sodium Chloride (Sodium Chloride 0.9%) 1,000 mls @ 75 mls/hr IV .[id number] [facility] Last Admin: 07/27/17 18:00 Dose: Not Given Levetiracetam (Keppra) 500 mg PEG BID [facility] Last Admin: 07/28/17 09:37 Dose: 500 mg Saccharomyces Boulardii (Florastor) 250 mg PEG DAILY [facility] Last Admin: 07/28/17 09:38 Dose: 250 mg Scopolamine (Transderm-Scop) 1 patch TD Q3D [facility] Last Admin: 07/25/17 20:15 Dose: 1 patch Tamsulosin HCl (Flomax) 0.4 mg PEG DAILY [facility] Last Admin: 07/28/17 09:37 Dose: 0.4 mg Ticagrelor (Brilinta) 90 mg PO BID [facility] Last Admin: 07/28/17 09:37 Dose: 90 mg - Labs Labs: 07/27/17 08:34 07/27/17 08:34 PT 10.6 SECONDS (9.7-12.2) 11/24/15 14:10 INR 1.0 11/24/15 14:10 APTT 25 SECONDS (21-34) 11/24/15 14:10 Assessment and Plan (1) Prophylactic measure Status: Acute (2) Anoxic encephalopathy Status: Chronic (3) STEMI (ST elevation myocardial infarction) Status: Acute (4) Cardiac arrest Status: Acute (5) Seizures Status: Acute (6) Respiratory failure Status: Chronic Attending/Attestation - Attestation I have personally seen and examined this patient.: Yes I have fully participated in the care of the patient.: Yes I have reviewed all pertinent clinical information, including history, physical exam and plan: Yes
[2017-07-28] MEDS: Fluconazole IV 200mg/100 ml NS 100 MG in Premixed IV 1 EA IVPB SCH (17:59)
[2017-07-29] MEDS: Sodium Chloride 0.9% 1,000 ML IV SCH ×3 (02:13→15:29)
[2017-07-29] MEDS: Meropenem 1 GM in Sodium Chloride 0.9% 100 ML IVPB SCH ×3 (05:00→22:21)
[2017-07-29] MEDS: Ciprofloxacin 400mg/200ml D5W 400 MG/200 ML BAG IVPB SCH ×2 (07:13→20:38)
[2017-07-29] MEDS: levETIRAcetam 100 mg/ml (5ml) Oral Syringe PEG SCH ×2 (10:07→17:42)
[2017-07-29] MEDS: Saccharomyces Boulardi 250 mg Cap PEG SCH (10:07)
--- NOTE | 2017-07-29 14:05 | CP.PCM.PN ---
Subjective - Date & Time of Evaluation Date of Evaluation: 07/29/17 Time of Evaluation: 14:03 - Subjective Subjective: PGY1 Note for Dr. Chavis HPI: Patient seen and examined at bedside. ROS unattainable due to Anoxic brain injury. Objective - Vital Signs/Intake and Output Vital Signs (last 24 hours): Temp Pulse Resp BP Pulse Ox 98.9 F 84 20 120/86 99 07/29/17 08:02 07/29/17 08:02 07/29/17 08:02 07/29/17 08:02 07/29/17 08:02 Intake and Output: 07/29/17 07/29/17 06:59 18:59 Intake Total 2330 Output Total 1250 Balance 1080 - Medications Medications: Current Medications Acetaminophen (Tylenol 650mg/20.3ml Solution Ud) 650 mg PO Q4 PRN PRN Reason: Temperature Last Admin: 07/18/17 19:26 Dose: 650 mg Aspirin (Aspirin Chewable) 81 mg PEG DAILY [facility] Last Admin: 07/29/17 10:07 Dose: 81 mg Bethanechol Chloride (Urecholine) 50 mg PEG TID [facility] Last Admin: 07/29/17 13:07 Dose: 50 mg Carvedilol (Coreg) 3.125 mg PEG BID [facility] Last Admin: 07/29/17 10:07 Dose: 3.125 mg Clopidogrel Bisulfate (Plavix) 75 mg PEG DAILY [facility] Last Admin: 07/25/17 10:06 Dose: 75 mg Emollient Ointment (Vaseline Oint) 5 gm TOP DAILY PRN PRN Reason: Dry skin Last Admin: 07/27/17 09:43 Dose: 5 gm Famotidine (Pepcid) 20 mg PEG DAILY [facility] Last Admin: 07/29/17 10:07 Dose: 20 mg Finasteride (Proscar) 5 mg PEG DAILY [facility] Last Admin: 07/29/17 10:07 Dose: 5 mg Ciprofloxacin (Cipro 400mg/200ml Dsw) 400 mg in 200 mls @ 133 mls/hr IVPB Q12H [facility] Last Admin: 07/29/17 07:13 Dose: 133 mls/hr Meropenem 1 gm/ Sodium (Chloride) 100 mls @ 100 mls/hr IVPB Q8 [facility] Last Admin: 07/29/17 13:35 Dose: 100 mls/hr Fluconazole 100 mg/ (Miscellaneous) 50 mls @ 50 mls/hr IVPB DAILY@1800 [facility] Last Admin: 07/28/17 17:59 Dose: 50 mls/hr Sodium Chloride (Sodium Chloride 0.9%) 1,000 mls @ 75 mls/hr IV .[id number] [facility] Last Admin: 07/29/17 10:08 Dose: Not Given Levetiracetam (Keppra) 500 mg PEG BID [facility] Last Admin: 07/29/17 10:07 Dose: 500 mg Saccharomyces Boulardii (Florastor) 250 mg PEG DAILY [facility] Last Admin: 07/29/17 10:07 Dose: 250 mg Scopolamine (Transderm-Scop) 1 patch TD Q3D [facility] Last Admin: 07/28/17 20:07 Dose: 1 patch Tamsulosin HCl (Flomax) 0.4 mg PEG DAILY [facility] Last Admin: 07/29/17 10:07 Dose: 0.4 mg Ticagrelor (Brilinta) 90 mg PO BID [facility] Last Admin: 07/29/17 10:07 Dose: 90 mg - Labs Labs: 07/27/17 08:34 07/27/17 08:34 PT 10.6 SECONDS (9.7-12.2) 11/24/15 14:10 INR 1.0 11/24/15 14:10 APTT 25 SECONDS (21-34) 11/24/15 14:10 - Constitutional Appears: Chronically Ill - Head Exam Head Exam: ATRAUMATIC, NORMAL INSPECTION, NORMOCEPHALIC - Eye Exam Eye Exam: EOMI - ENT Exam ENT Exam: Mucous Membranes Moist - Respiratory Exam Respiratory Exam: Clear to Ausculation Bilateral Additional comments: trach - Cardiovascular Exam Cardiovascular Exam: REGULAR RHYTHM, RRR. absent: Bradycardia, Tachycardia, Gallop, Rubs - GI/Abdominal Exam GI & Abdominal Exam: Soft, Normal Bowel Sounds. absent: Distended, Tenderness - Extremities Exam Extremities Exam: Joint Swelling Additional comments: swelling of R. hand - Skin Skin Exam: Dry, Intact, Normal Color, Warm Assessment and Plan - Assessment and Plan (Free Text) Assessment: Hypokalemia Assessment & Plan: K+ on 07/24: 4.1 Leukocytosis Assessment & Plan: 07/24: WBC 15.3 Febrile Assessment & Plan: 07/29: afebrile Anoxic encephalopathy Assessment & Plan: s/p cardiac arrest in 05/2015 no acute changes Pt has non spontaneous movements. Continue tube feeds- goal of 60ml/hr, feedings held at night due to fluid overload Urinary retention Assessment & Plan: 07/21: NS stopped because tube feeds restarted 07/20: Urine dark in color, monitor, continue NS at 50 ml per hour 07/07/17: Catheter flushed, patient output approx. 500mL within one hour post flush. 06/27/17: Continue bladder massages to aid in voiding. 06/25/17: Patient voids with movement. Continue bladder massages to aid in voiding. 06/23/17: Patient will need to have daily bladder massage to allow for complete voiding 06/17/17: Nursing communication placed in: straight catherization with bladder scan> 100ml 06/08: urinary retention yesterday, was given 40mg lasix iv and patient was able to urinate through condom baker Take note condom cath not always securely in place so Is and Os are approximate as patient does wet bed Ordered- new condom catheter on 05/22/17 Flomax 0.4mg PEG daily Proscar 5mg PEG daily continue Bethanecol 50mg PEG TID- started after persistent retention and found to be effective. monitor I's and O's Check bladder scan for residual urine three times weekly Respiratory failure Assessment & Plan: Trach in place, continue daily monitoring for secretions. No change in management at this time. Continue with aggressive suctioning multiple times a day per respiratory therapist. Monitor for signs of respiratory distress Thick secretions Duoneb 3ml INH Q6 and Mucomyst 4ml INH Q6H Robitussin 100mg PEG Q12H Scopolamine 1 patch TD Q3D JOO Repeat CXR on 05/28/17: linear increased consolidative changes in the right mid- lung zone and left lung base which may represent atelectasis and/or infiltrate. Questionable trace left pleural effusion. moderate venous congestion. cardiomegaly. degenerative changes in the spine and shoulders Sacral ulcer Assessment & Plan: Healed Cont with offloading/cushioning/turning Continue frequent turning, protective ointment and skin checks. History of coronary artery disease Assessment & Plan: s/p cardiac stents on 06/13/15 Cont ASA 81mg via PEG daily Cont Coreg 3.125mg PEG BID Seizures Assessment & Plan: Continue Keppra 500mg PEG BID for seizure prophylaxis Monitor for activity Lower extremity edema Assessment & Plan: Improved SCDs in place Pressure ulcer boots on b/l Continue to monitor Prophylactic measure Assessment & Plan: Pepcid 20 mg PEG BID Lovenox 40mg SC daily SCDs and offloading boots continue to turn and reposition q2hrs Continue to monitor medication administrations and clinical presentation weekly labs. vasoline ointment applied to feet prn to prevent hyperkeratosis Please hold feeding from 10pm-6am, placed into nursing communication tube feedings held (07/22) until ct abdomen comes back NS @ 50 ml/hr
[2017-07-29] MEDS: Fluconazole IV 200mg/100 ml NS 100 MG in Premixed IV 1 EA IVPB SCH (18:00)
[2017-07-30] MEDS: Meropenem 1 GM in Sodium Chloride 0.9% 100 ML IVPB SCH ×3 (05:05→21:08)
[2017-07-30] MEDS: Ciprofloxacin 400mg/200ml D5W 400 MG/200 ML BAG IVPB SCH ×2 (07:31→19:42)
[2017-07-30] MEDS: Saccharomyces Boulardi 250 mg Cap PEG SCH (09:07)
[2017-07-30] MEDS: levETIRAcetam 100 mg/ml (5ml) Oral Syringe PEG SCH ×2 (09:07→18:00)
[2017-07-30] MEDS: Petrolatum Oint Foilpak (5 gm) TOP PRN (09:07)
[2017-07-30] MEDS: Sodium Chloride 0.9% 1,000 ML IV SCH ×2 (11:05)
--- NOTE | 2017-07-30 13:58 | CP.PCM.PN ---
Subjective - Date & Time of Evaluation Date of Evaluation: 07/30/17 Time of Evaluation: 13:56 - Subjective Subjective: PGY1 Note for Dr. Chavis HPI: Patient seen and examined at bedside. ROS unattainable due to anoxic brain injury. Objective - Vital Signs/Intake and Output Vital Signs (last 24 hours): Temp Pulse Resp BP Pulse Ox 97.5 F L 94 H 20 125/81 98 07/30/17 08:02 07/30/17 08:02 07/30/17 08:02 07/30/17 08:02 07/30/17 08:02 Intake and Output: 07/30/17 07/30/17 06:59 18:59 Intake Total 2250 Output Total 800 Balance 1450 - Medications Medications: Current Medications Acetaminophen (Tylenol 650mg/20.3ml Solution Ud) 650 mg PO Q4 PRN PRN Reason: Temperature Last Admin: 07/18/17 19:26 Dose: 650 mg Aspirin (Aspirin Chewable) 81 mg PEG DAILY [facility] Last Admin: 07/30/17 09:07 Dose: 81 mg Bethanechol Chloride (Urecholine) 50 mg PEG TID [facility] Last Admin: 07/30/17 13:26 Dose: 50 mg Carvedilol (Coreg) 3.125 mg PEG BID [facility] Last Admin: 07/30/17 09:07 Dose: 3.125 mg Clopidogrel Bisulfate (Plavix) 75 mg PEG DAILY [facility] Last Admin: 07/25/17 10:06 Dose: 75 mg Emollient Ointment (Vaseline Oint) 5 gm TOP DAILY PRN PRN Reason: Dry skin Last Admin: 07/30/17 09:07 Dose: 5 gm Famotidine (Pepcid) 20 mg PEG DAILY [facility] Last Admin: 07/30/17 09:07 Dose: 20 mg Finasteride (Proscar) 5 mg PEG DAILY [facility] Last Admin: 07/30/17 09:07 Dose: 5 mg Ciprofloxacin (Cipro 400mg/200ml Dsw) 400 mg in 200 mls @ 133 mls/hr IVPB Q12H [facility] Last Admin: 07/30/17 07:31 Dose: 133 mls/hr Meropenem 1 gm/ Sodium (Chloride) 100 mls @ 100 mls/hr IVPB Q8 [facility] Last Admin: 07/30/17 13:26 Dose: 100 mls/hr Sodium Chloride (Sodium Chloride 0.9%) 1,000 mls @ 50 mls/hr IV .Q20H [facility] Last Admin: 07/30/17 11:05 Dose: Not Given Levetiracetam (Keppra) 500 mg PEG BID [facility] Last Admin: 07/30/17 09:07 Dose: 500 mg Saccharomyces Boulardii (Florastor) 250 mg PEG DAILY [facility] Last Admin: 07/30/17 09:07 Dose: 250 mg Scopolamine (Transderm-Scop) 1 patch TD Q3D [facility] Last Admin: 07/28/17 20:07 Dose: 1 patch Tamsulosin HCl (Flomax) 0.4 mg PEG DAILY [facility] Last Admin: 07/30/17 09:07 Dose: 0.4 mg Ticagrelor (Brilinta) 90 mg PO BID [facility] Last Admin: 07/30/17 09:08 Dose: 90 mg - Labs Labs: 07/27/17 08:34 07/27/17 08:34 PT 10.6 SECONDS (9.7-12.2) 11/24/15 14:10 INR 1.0 11/24/15 14:10 APTT 25 SECONDS (21-34) 11/24/15 14:10 - Constitutional Appears: Chronically Ill - Head Exam Head Exam: ATRAUMATIC, NORMAL INSPECTION, NORMOCEPHALIC - ENT Exam Additional comments: trach - Respiratory Exam Respiratory Exam: Clear to Ausculation Bilateral - Cardiovascular Exam Cardiovascular Exam: REGULAR RHYTHM - GI/Abdominal Exam GI & Abdominal Exam: Soft, Normal Bowel Sounds. absent: Distended, Tenderness - Skin Skin Exam: Dry, Intact, Normal Color, Warm Assessment and Plan - Assessment and Plan (Free Text) Assessment: Hypokalemia Assessment & Plan: K+ on 07/24: 4.1 Leukocytosis Assessment & Plan: 07/24: WBC 15.3 Febrile Assessment & Plan: 07/29: afebrile Anoxic encephalopathy Assessment & Plan: s/p cardiac arrest in 05/2015 no acute changes Pt has non spontaneous movements. Continue tube feeds- goal of 60ml/hr, feedings held at night due to fluid overload Urinary retention Assessment & Plan: 07/21: NS stopped because tube feeds restarted 07/20: Urine dark in color, monitor, continue NS at 50 ml per hour 07/07/17: Catheter flushed, patient output approx. 500mL within one hour post flush. 06/27/17: Continue bladder massages to aid in voiding. 06/25/17: Patient voids with movement. Continue bladder massages to aid in voiding. 06/23/17: Patient will need to have daily bladder massage to allow for complete voiding 06/17/17: Nursing communication placed in: straight catherization with bladder scan> 100ml 06/08: urinary retention yesterday, was given 40mg lasix iv and patient was able to urinate through condom baker Take note condom cath not always securely in place so Is and Os are approximate as patient does wet bed Ordered- new condom catheter on 05/22/17 Flomax 0.4mg PEG daily Proscar 5mg PEG daily continue Bethanecol 50mg PEG TID- started after persistent retention and found to be effective. monitor I's and O's Check bladder scan for residual urine three times weekly Respiratory failure Assessment & Plan: Trach in place, continue daily monitoring for secretions. No change in management at this time. Continue with aggressive suctioning multiple times a day per respiratory therapist. Monitor for signs of respiratory distress Thick secretions Duoneb 3ml INH Q6 and Mucomyst 4ml INH Q6H Robitussin 100mg PEG Q12H Scopolamine 1 patch TD Q3D JOO Repeat CXR on 05/28/17: linear increased consolidative changes in the right mid- lung zone and left lung base which may represent atelectasis and/or infiltrate. Questionable trace left pleural effusion. moderate venous congestion. cardiomegaly. degenerative changes in the spine and shoulders Sacral ulcer Assessment & Plan: Healed Cont with offloading/cushioning/turning Continue frequent turning, protective ointment and skin checks. History of coronary artery disease Assessment & Plan: s/p cardiac stents on 06/13/15 Cont ASA 81mg via PEG daily Cont Coreg 3.125mg PEG BID Seizures Assessment & Plan: Continue Keppra 500mg PEG BID for seizure prophylaxis Monitor for activity Lower extremity edema Assessment & Plan: Improved SCDs in place Pressure ulcer boots on b/l Continue to monitor Prophylactic measure Assessment & Plan: Pepcid 20 mg PEG BID Lovenox 40mg SC daily SCDs and offloading boots continue to turn and reposition q2hrs Continue to monitor medication administrations and clinical presentation weekly labs. vasoline ointment applied to feet prn to prevent hyperkeratosis Please hold feeding from 10pm-6am, placed into nursing communication tube feedings held (07/22) until ct abdomen comes back NS @ 50 ml/hr
[2017-07-31] MEDS: Sodium Chloride 0.9% 1,000 ML IV SCH (05:11)
[2017-07-31] MEDS: Meropenem 1 GM in Sodium Chloride 0.9% 100 ML IVPB SCH ×3 (05:11→21:48)
[2017-07-31] MEDS: Ciprofloxacin 400mg/200ml D5W 400 MG/200 ML BAG IVPB SCH ×2 (08:06→20:00)
--- NOTE | 2017-07-31 09:59 | CP.PCM.PN ---
Subjective - Date & Time of Evaluation Date of Evaluation: 07/31/17 Time of Evaluation: 09:00 - Subjective Subjective: Medicine Progress Note: Patient was seen and examined at bedside in the AM. ROS unattainable due to anoxic brain injury. Objective - Vital Signs/Intake and Output Vital Signs (last 24 hours): Temp Pulse Resp BP Pulse Ox 98.1 F 96 H 23 120/84 97 07/31/17 08:00 07/31/17 08:00 07/31/17 08:00 07/31/17 08:00 07/31/17 08:00 Intake and Output: 07/31/17 07/31/17 06:59 18:59 Intake Total 1500 Output Total 1550 Balance -50 - Medications Medications: Current Medications Acetaminophen (Tylenol 650mg/20.3ml Solution Ud) 650 mg PO Q4 PRN PRN Reason: Temperature Last Admin: 07/18/17 19:26 Dose: 650 mg Aspirin (Aspirin Chewable) 81 mg PEG DAILY [facility] Last Admin: 07/30/17 09:07 Dose: 81 mg Bethanechol Chloride (Urecholine) 50 mg PEG TID [facility] Last Admin: 07/30/17 18:01 Dose: 50 mg Carvedilol (Coreg) 3.125 mg PEG BID [facility] Last Admin: 07/30/17 18:01 Dose: Not Given Clopidogrel Bisulfate (Plavix) 75 mg PEG DAILY [facility] Last Admin: 07/25/17 10:06 Dose: 75 mg Emollient Ointment (Vaseline Oint) 5 gm TOP DAILY PRN PRN Reason: Dry skin Last Admin: 07/30/17 09:07 Dose: 5 gm Famotidine (Pepcid) 20 mg PEG DAILY [facility] Last Admin: 07/30/17 09:07 Dose: 20 mg Finasteride (Proscar) 5 mg PEG DAILY [facility] Last Admin: 07/30/17 09:07 Dose: 5 mg Ciprofloxacin (Cipro 400mg/200ml Dsw) 400 mg in 200 mls @ 133 mls/hr IVPB Q12H [facility] Last Admin: 07/31/17 08:06 Dose: 133 mls/hr Meropenem 1 gm/ Sodium (Chloride) 100 mls @ 100 mls/hr IVPB Q8 [facility] Last Admin: 07/31/17 05:11 Dose: 100 mls/hr Sodium Chloride (Sodium Chloride 0.9%) 1,000 mls @ 50 mls/hr IV .Q20H [facility] Last Admin: 07/31/17 05:11 Dose: 50 mls/hr Levetiracetam (Keppra) 500 mg PEG BID [facility] Last Admin: 07/30/17 18:00 Dose: 500 mg Saccharomyces Boulardii (Florastor) 250 mg PEG DAILY [facility] Last Admin: 07/30/17 09:07 Dose: 250 mg Scopolamine (Transderm-Scop) 1 patch TD Q3D [facility] Last Admin: 07/28/17 20:07 Dose: 1 patch Tamsulosin HCl (Flomax) 0.4 mg PEG DAILY [facility] Last Admin: 07/30/17 09:07 Dose: 0.4 mg Ticagrelor (Brilinta) 90 mg PO BID [facility] Last Admin: 07/30/17 18:01 Dose: 90 mg - Labs Labs: 07/27/17 08:34 07/27/17 08:34 PT 10.6 SECONDS (9.7-12.2) 11/24/15 14:10 INR 1.0 11/24/15 14:10 APTT 25 SECONDS (21-34) 11/24/15 14:10 - Constitutional Appears: Chronically Ill - Head Exam Head Exam: ATRAUMATIC, NORMAL INSPECTION, NORMOCEPHALIC - ENT Exam Additional comments: Trach in place - Respiratory Exam Respiratory Exam: Clear to Ausculation Bilateral - Cardiovascular Exam Cardiovascular Exam: REGULAR RHYTHM - GI/Abdominal Exam GI & Abdominal Exam: Soft, Normal Bowel Sounds. absent: Distended - Neurological Exam Neurological Exam: absent: Alert, Awake, Oriented x3 - Skin Skin Exam: Normal Color Assessment and Plan - Assessment and Plan (Free Text) Plan: Hypokalemia Assessment & Plan: K+ on 07/24: 4.1 Leukocytosis Assessment & Plan: 07/24: WBC 15.3 Febrile Assessment & Plan: 07/29: afebrile Anoxic encephalopathy Assessment & Plan: s/p cardiac arrest in 05/2015 no acute changes Pt has non spontaneous movements. Continue tube feeds- goal of 60ml/hr, feedings held at night due to fluid overload Urinary retention Assessment & Plan: 07/21: NS stopped because tube feeds restarted 07/20: Urine dark in color, monitor, continue NS at 50 ml per hour 07/07/17: Catheter flushed, patient output approx. 500mL within one hour post flush. 06/27/17: Continue bladder massages to aid in voiding. 06/25/17: Patient voids with movement. Continue bladder massages to aid in voiding. 06/23/17: Patient will need to have daily bladder massage to allow for complete voiding 06/17/17: Nursing communication placed in: straight catherization with bladder scan> 100ml 06/08: urinary retention yesterday, was given 40mg lasix iv and patient was able to urinate through condom baker Take note condom cath not always securely in place so Is and Os are approximate as patient does wet bed Ordered- new condom catheter on 05/22/17 Flomax 0.4mg PEG daily Proscar 5mg PEG daily continue Bethanecol 50mg PEG TID- started after persistent retention and found to be effective. monitor I's and O's Check bladder scan for residual urine three times weekly Respiratory failure Assessment & Plan: Trach in place, continue daily monitoring for secretions. No change in management at this time. Continue with aggressive suctioning multiple times a day per respiratory therapist. Monitor for signs of respiratory distress Thick secretions Duoneb 3ml INH Q6 and Mucomyst 4ml INH Q6H Robitussin 100mg PEG Q12H Scopolamine 1 patch TD Q3D JOO Repeat CXR on 05/28/17: linear increased consolidative changes in the right mid- lung zone and left lung base which may represent atelectasis and/or infiltrate. Questionable trace left pleural effusion. moderate venous congestion. cardiomegaly. degenerative changes in the spine and shoulders Sacral ulcer Assessment & Plan: Healed Cont with offloading/cushioning/turning Continue frequent turning, protective ointment and skin checks. History of coronary artery disease Assessment & Plan: s/p cardiac stents on 06/13/15 Cont ASA 81mg via PEG daily Cont Coreg 3.125mg PEG BID Seizures Assessment & Plan: Continue Keppra 500mg PEG BID for seizure prophylaxis Monitor for activity Lower extremity edema Assessment & Plan: Improved SCDs in place Pressure ulcer boots on b/l Continue to monitor Prophylactic measure Assessment & Plan: Pepcid 20 mg PEG BID Lovenox 40mg SC daily SCDs and offloading boots continue to turn and reposition q2hrs Continue to monitor medication administrations and clinical presentation weekly labs. vasoline ointment applied to feet prn to prevent hyperkeratosis Please hold feeding from 10pm-6am, placed into nursing communication tube feedings held (07/22) until ct abdomen comes back NS @ 50 ml/hr Discussed Case with Dr. Palmira Pappas PGY-1
[2017-07-31] MEDS: Saccharomyces Boulardi 250 mg Cap PEG SCH (10:41)
[2017-07-31] MEDS: levETIRAcetam 100 mg/ml (5ml) Oral Syringe PEG SCH ×2 (10:43→17:23)
[2017-08-01] MEDS: Sodium Chloride 0.9% 1,000 ML IV SCH (05:00)
[2017-08-01] MEDS: Meropenem 1 GM in Sodium Chloride 0.9% 100 ML IVPB SCH ×3 (05:30→21:41)
[2017-08-01] MEDS: Ciprofloxacin 400mg/200ml D5W 400 MG/200 ML BAG IVPB SCH ×2 (08:13→19:36)
--- NOTE | 2017-08-01 08:25 | CP.PCM.PN ---
<Judith Martinez - Last Filed: 08/01/17 08:22> Subjective - Date & Time of Evaluation Date of Evaluation: 08/01/17 Time of Evaluation: 08:22 - Subjective Subjective: Patient was seen and examined at bedside in the AM. ROS unattainable due to anoxic brain injury. Objective - Vital Signs/Intake and Output Vital Signs (last 24 hours): Temp Pulse Resp BP Pulse Ox 99.1 F 96 H 20 115/76 99 08/01/17 07:38 08/01/17 07:38 08/01/17 07:38 08/01/17 07:38 08/01/17 07:38 Intake and Output: 08/01/17 08/01/17 06:59 18:59 Intake Total 1600 Output Total 1550 Balance 50 - Medications Medications: Current Medications Aspirin (Aspirin Chewable) 81 mg PEG DAILY [facility] Last Admin: 07/31/17 10:41 Dose: 81 mg Bethanechol Chloride (Urecholine) 50 mg PEG TID [facility] Last Admin: 07/31/17 17:22 Dose: 50 mg Carvedilol (Coreg) 3.125 mg PEG BID [facility] Last Admin: 07/31/17 17:26 Dose: 3.125 mg Clopidogrel Bisulfate (Plavix) 75 mg PEG DAILY [facility] Last Admin: 07/25/17 10:06 Dose: 75 mg Emollient Ointment (Vaseline Oint) 5 gm TOP DAILY PRN PRN Reason: Dry skin Last Admin: 07/30/17 09:07 Dose: 5 gm Famotidine (Pepcid) 20 mg PEG DAILY [facility] Last Admin: 07/31/17 10:41 Dose: 20 mg Finasteride (Proscar) 5 mg PEG DAILY [facility] Last Admin: 07/31/17 10:42 Dose: 5 mg Ciprofloxacin (Cipro 400mg/200ml Dsw) 400 mg in 200 mls @ 133 mls/hr IVPB Q12H [facility] Last Admin: 08/01/17 08:13 Dose: 133 mls/hr Meropenem 1 gm/ Sodium (Chloride) 100 mls @ 100 mls/hr IVPB Q8 [facility] Last Admin: 08/01/17 05:30 Dose: 100 mls/hr Sodium Chloride (Sodium Chloride 0.9%) 1,000 mls @ 50 mls/hr IV .Q20H [facility] Last Admin: 08/01/17 05:00 Dose: 50 mls/hr Levetiracetam (Keppra) 500 mg PEG BID [facility] Last Admin: 07/31/17 17:23 Dose: 500 mg Saccharomyces Boulardii (Florastor) 250 mg PEG DAILY [facility] Last Admin: 07/31/17 10:41 Dose: 250 mg Scopolamine (Transderm-Scop) 1 patch TD Q3D [facility] Last Admin: 07/31/17 20:40 Dose: 1 patch Tamsulosin HCl (Flomax) 0.4 mg PEG DAILY [facility] Last Admin: 07/31/17 10:42 Dose: 0.4 mg Ticagrelor (Brilinta) 90 mg PO BID [facility] Last Admin: 07/31/17 17:23 Dose: 90 mg - Labs Labs: 07/27/17 08:34 07/27/17 08:34 PT 10.6 SECONDS (9.7-12.2) 11/24/15 14:10 INR 1.0 11/24/15 14:10 APTT 25 SECONDS (21-34) 11/24/15 14:10 - Constitutional Appears: Chronically Ill - Head Exam Head Exam: ATRAUMATIC, NORMAL INSPECTION, NORMOCEPHALIC - Neck Exam Additional comments: Trach in place - Respiratory Exam Respiratory Exam: Clear to Ausculation Bilateral - Cardiovascular Exam Cardiovascular Exam: REGULAR RHYTHM, +S1, +S2 - GI/Abdominal Exam GI & Abdominal Exam: Soft, Normal Bowel Sounds. absent: Distended - Extremities Exam Extremities Exam: absent: Joint Swelling - Neurological Exam Additional comments: Altered - anoxic brain injury. - Skin Skin Exam: Dry, Intact, Normal Color Assessment and Plan - Assessment and Plan (Free Text) Assessment: Hypokalemia Assessment & Plan: K+ on 07/24: 4.1 Leukocytosis Assessment & Plan: 07/24: WBC 15.3 Febrile Assessment & Plan: 07/29: afebrile Anoxic encephalopathy Assessment & Plan: s/p cardiac arrest in 05/2015 no acute changes Pt has non spontaneous movements. Continue tube feeds- goal of 60ml/hr, feedings held at night due to fluid overload Urinary retention Assessment & Plan: 07/21: NS stopped because tube feeds restarted 07/20: Urine dark in color, monitor, continue NS at 50 ml per hour 07/07/17: Catheter flushed, patient output approx. 500mL within one hour post flush. 06/27/17: Continue bladder massages to aid in voiding. 06/25/17: Patient voids with movement. Continue bladder massages to aid in voiding. 06/23/17: Patient will need to have daily bladder massage to allow for complete voiding 06/17/17: Nursing communication placed in: straight catherization with bladder scan> 100ml 06/08: urinary retention yesterday, was given 40mg lasix iv and patient was able to urinate through condom baker Take note condom cath not always securely in place so Is and Os are approximate as patient does wet bed Ordered- new condom catheter on 05/22/17 Flomax 0.4mg PEG daily Proscar 5mg PEG daily continue Bethanecol 50mg PEG TID- started after persistent retention and found to be effective. monitor I's and O's Check bladder scan for residual urine three times weekly Respiratory failure Assessment & Plan: Trach in place, continue daily monitoring for secretions. No change in management at this time. Continue with aggressive suctioning multiple times a day per respiratory therapist. Monitor for signs of respiratory distress Thick secretions Duoneb 3ml INH Q6 and Mucomyst 4ml INH Q6H Robitussin 100mg PEG Q12H Scopolamine 1 patch TD Q3D JOO Repeat CXR on 05/28/17: linear increased consolidative changes in the right mid- lung zone and left lung base which may represent atelectasis and/or infiltrate. Questionable trace left pleural effusion. moderate venous congestion. cardiomegaly. degenerative changes in the spine and shoulders Sacral ulcer Assessment & Plan: Healed Cont with offloading/cushioning/turning Continue frequent turning, protective ointment and skin checks. History of coronary artery disease Assessment & Plan: s/p cardiac stents on 06/13/15 Cont ASA 81mg via PEG daily Cont Coreg 3.125mg PEG BID Seizures Assessment & Plan: Continue Keppra 500mg PEG BID for seizure prophylaxis Monitor for activity Lower extremity edema Assessment & Plan: Improved SCDs in place Pressure ulcer boots on b/l Continue to monitor Prophylactic measure Assessment & Plan: Pepcid 20 mg PEG BID Lovenox 40mg SC daily SCDs and offloading boots continue to turn and reposition q2hrs Continue to monitor medication administrations and clinical presentation weekly labs. vasoline ointment applied to feet prn to prevent hyperkeratosis Please hold feeding from 10pm-6am, placed into nursing communication tube feedings held (07/22) until ct abdomen comes back NS @ 50 ml/hr <PalmiraAmandeep H - Last Filed: 08/01/17 11:45> Objective - Vital Signs/Intake and Output Vital Signs (last 24 hours): Temp Pulse Resp BP Pulse Ox 99.1 F 96 H 20 115/76 99 08/01/17 07:38 08/01/17 07:38 08/01/17 07:38 08/01/17 07:38 08/01/17 07:38 Intake and Output: 08/01/17 08/01/17 06:59 18:59 Intake Total 1600 Output Total 1550 Balance 50 - Medications Medications: Current Medications Aspirin (Aspirin Chewable) 81 mg PEG DAILY [facility] Last Admin: 08/01/17 10:50 Dose: 81 mg Bethanechol Chloride (Urecholine) 50 mg PEG TID [facility] Last Admin: 08/01/17 10:50 Dose: 50 mg Carvedilol (Coreg) 3.125 mg PEG BID [facility] Last Admin: 08/01/17 10:50 Dose: 3.125 mg Clopidogrel Bisulfate (Plavix) 75 mg PEG DAILY [facility] Last Admin: 07/25/17 10:06 Dose: 75 mg Emollient Ointment (Vaseline Oint) 5 gm TOP DAILY PRN PRN Reason: Dry skin Last Admin: 07/30/17 09:07 Dose: 5 gm Famotidine (Pepcid) 20 mg PEG DAILY [facility] Last Admin: 08/01/17 10:50 Dose: 20 mg Finasteride (Proscar) 5 mg PEG DAILY [facility] Last Admin: 08/01/17 10:49 Dose: 5 mg Ciprofloxacin (Cipro 400mg/200ml Dsw) 400 mg in 200 mls @ 133 mls/hr IVPB Q12H [facility] Last Admin: 08/01/17 08:13 Dose: 133 mls/hr Meropenem 1 gm/ Sodium (Chloride) 100 mls @ 100 mls/hr IVPB Q8 [facility] Last Admin: 08/01/17 05:30 Dose: 100 mls/hr Sodium Chloride (Sodium Chloride 0.9%) 1,000 mls @ 50 mls/hr IV .Q20H [facility] Last Admin: 08/01/17 05:00 Dose: 50 mls/hr Levetiracetam (Keppra) 500 mg PEG BID [facility] Last Admin: 08/01/17 10:49 Dose: 500 mg Saccharomyces Boulardii (Florastor) 250 mg PEG DAILY [facility] Last Admin: 08/01/17 10:50 Dose: 250 mg Scopolamine (Transderm-Scop) 1 patch TD Q3D [facility] Last Admin: 07/31/17 20:40 Dose: 1 patch Tamsulosin HCl (Flomax) 0.4 mg PEG DAILY [facility] Last Admin: 08/01/17 10:50 Dose: 0.4 mg Ticagrelor (Brilinta) 90 mg PO BID [facility] Last Admin: 08/01/17 10:49 Dose: 90 mg - Labs Labs: 07/27/17 08:34 07/27/17 08:34 PT 10.6 SECONDS (9.7-12.2) 11/24/15 14:10 INR 1.0 11/24/15 14:10 APTT 25 SECONDS (21-34) 11/24/15 14:10 Assessment and Plan (1) Prophylactic measure Status: Acute (2) Anoxic encephalopathy Status: Chronic (3) STEMI (ST elevation myocardial infarction) Status: Acute (4) Cardiac arrest Status: Acute (5) Seizures Status: Acute (6) Respiratory failure Status: Chronic Attending/Attestation - Attestation I have personally seen and examined this patient.: Yes I have fully participated in the care of the patient.: Yes I have reviewed all pertinent clinical information, including history, physical exam and plan: Yes Notes (Text): 08/01/17 11:44 Medical Attending: Patient was seen and examined by me. Agree with the above note by the resident No acute changes to situation. Unchanged from previous thank you Amandeep Chavis
[2017-08-01] MEDS: levETIRAcetam 100 mg/ml (5ml) Oral Syringe PEG SCH ×2 (10:49→17:28)
[2017-08-01] MEDS: Saccharomyces Boulardi 250 mg Cap PEG SCH (10:50)
[2017-08-02] MEDS: Meropenem 1 GM in Sodium Chloride 0.9% 100 ML IVPB SCH ×3 (05:17→21:26)
--- NOTE | 2017-08-02 05:28 | CP.PCM.PN ---
Subjective - Date & Time of Evaluation Date of Evaluation: 08/02/17 Time of Evaluation: 05:25 - Subjective Subjective: Patient was seen and examined at bedside in the AM. ROS unattainable due to anoxic brain injury. Objective - Vital Signs/Intake and Output Vital Signs (last 24 hours): Temp Pulse Resp BP Pulse Ox 98.3 F 82 20 110/78 100 08/02/17 00:00 08/02/17 00:00 08/02/17 00:00 08/02/17 00:00 08/02/17 00:00 Intake and Output: 08/01/17 08/02/17 18:59 06:59 Intake Total 400 1450 Output Total 1300 Balance -900 1450 - Medications Medications: Current Medications Aspirin (Aspirin Chewable) 81 mg PEG DAILY [facility]S [facility] BEDS AT [facility] Last Admin: 08/01/17 10:50 Dose: 81 mg Bethanechol Chloride (Urecholine) 50 mg PEG TID COUNTS INCLUDE 234 BEDS AT THE [facility] Last Admin: 08/01/17 17:29 Dose: 50 mg Carvedilol (Coreg) 3.125 mg PEG BID COUNTS INCLUDE 234 BEDS AT THE [facility] Last Admin: 08/01/17 17:28 Dose: Not Given Clopidogrel Bisulfate (Plavix) 75 mg PEG DAILY [facility]S [facility]CLUDE 234 BEDS AT THE [facility] Last Admin: 07/25/17 10:06 Dose: 75 mg Emollient Ointment (Vaseline Oint) 5 gm TOP DAILY PRN PRN Reason: Dry skin Last Admin: 07/30/17 09:07 Dose: 5 gm Famotidine (Pepcid) 20 mg PEG DAILY [facility]S [facility]CLUDE 234 BEDS AT THE [facility] Last Admin: 08/01/17 10:50 Dose: 20 mg Finasteride (Proscar) 5 mg PEG DAILY [facility]S [facility]CLUDE 234 BEDS AT [facility] Last Admin: 08/01/17 10:49 Dose: 5 mg Ciprofloxacin (Cipro 400mg/200ml Dsw) 400 mg in 200 mls @ 133 mls/hr IVPB Q12H COUNTS INCLUDE 234 BEDS AT THE [facility] Last Admin: 08/01/17 19:36 Dose: 133 mls/hr Meropenem 1 gm/ Sodium (Chloride) 100 mls @ 100 mls/hr IVPB Q8 [facility]S [facility]CLUDE 234 BEDS AT THE [facility] Last Admin: 08/02/17 05:17 Dose: 100 mls/hr Levetiracetam (Keppra) 500 mg PEG BID COUNTS INCLUDE 234 BEDS AT THE [facility] Last Admin: 08/01/17 17:28 Dose: 500 mg Saccharomyces Boulardii (Florastor) 250 mg PEG DAILY COUNTS INCLUDE 234 BEDS AT THE [facility] Last Admin: 08/01/17 10:50 Dose: 250 mg Scopolamine (Transderm-Scop) 1 patch TD Q3D COUNTS [facility]CLUDE 234 BEDS AT THE [facility] Last Admin: 07/31/17 20:40 Dose: 1 patch Tamsulosin HCl (Flomax) 0.4 mg PEG DAILY [facility]S [facility]CLUDE 234 BEDS AT [facility] Last Admin: 08/01/17 10:50 Dose: 0.4 mg Ticagrelor (Brilinta) 90 mg PO BID COUNTS [facility]CLUDE 234 BEDS AT [facility] Last Admin: 08/01/17 17:27 Dose: 90 mg - Labs Labs: 07/27/17 08:34 07/27/17 08:34 PT 10.6 SECONDS (9.7-12.2) 11/24/15 14:10 INR 1.0 11/24/15 14:10 APTT 25 SECONDS (21-34) 11/24/15 14:10 - Constitutional Appears: Chronically Ill - Head Exam Head Exam: ATRAUMATIC, NORMAL INSPECTION, NORMOCEPHALIC - Neck Exam Additional comments: trach in place - Respiratory Exam Respiratory Exam: Clear to Ausculation Bilateral - Cardiovascular Exam Cardiovascular Exam: REGULAR RHYTHM, +S1, +S2 - GI/Abdominal Exam GI & Abdominal Exam: Soft, Normal Bowel Sounds. absent: Distended - Extremities Exam Extremities Exam: absent: Joint Swelling - Neurological Exam Additional comments: Altered - anoxic brain injury. - Skin Skin Exam: Dry, Intact Assessment and Plan - Assessment and Plan (Free Text) Assessment: Hypokalemia Assessment & Plan: K+ on 07/24: 4.1 Leukocytosis Assessment & Plan: 07/24: WBC 15.3 Febrile Assessment & Plan: 07/29: afebrile Anoxic encephalopathy Assessment & Plan: s/p cardiac arrest in 05/2015 no acute changes Pt has non spontaneous movements. Continue tube feeds- goal of 60ml/hr, feedings held at night due to fluid overload Urinary retention Assessment & Plan: 07/21: NS stopped because tube feeds restarted 07/20: Urine dark in color, monitor, continue NS at 50 ml per hour 07/07/17: Catheter flushed, patient output approx. 500mL within one hour post flush. 06/27/17: Continue bladder massages to aid in voiding. 06/25/17: Patient voids with movement. Continue bladder massages to aid in voiding. 06/23/17: Patient will need to have daily bladder massage to allow for complete voiding 06/17/17: Nursing communication placed in: straight catherization with bladder scan> 100ml 06/08: urinary retention yesterday, was given 40mg lasix iv and patient was able to urinate through condom baker Take note condom cath not always securely in place so Is and Os are approximate as patient does wet bed Ordered- new condom catheter on 05/22/17 Flomax 0.4mg PEG daily Proscar 5mg PEG daily continue Bethanecol 50mg PEG TID- started after persistent retention and found to be effective. monitor I's and O's Check bladder scan for residual urine three times weekly Respiratory failure Assessment & Plan: Trach in place, continue daily monitoring for secretions. No change in management at this time. Continue with aggressive suctioning multiple times a day per respiratory therapist. Monitor for signs of respiratory distress Thick secretions Duoneb 3ml INH Q6 and Mucomyst 4ml INH Q6H Robitussin 100mg PEG Q12H Scopolamine 1 patch TD Q3D JOO Repeat CXR on 05/28/17: linear increased consolidative changes in the right mid- lung zone and left lung base which may represent atelectasis and/or infiltrate. Questionable trace left pleural effusion. moderate venous congestion. cardiomegaly. degenerative changes in the spine and shoulders Sacral ulcer Assessment & Plan: Healed Cont with offloading/cushioning/turning Continue frequent turning, protective ointment and skin checks. History of coronary artery disease Assessment & Plan: s/p cardiac stents on 06/13/15 Cont ASA 81mg via PEG daily Cont Coreg 3.125mg PEG BID Seizures Assessment & Plan: Continue Keppra 500mg PEG BID for seizure prophylaxis Monitor for activity Lower extremity edema Assessment & Plan: Improved SCDs in place Pressure ulcer boots on b/l Continue to monitor Prophylactic measure Assessment & Plan: Pepcid 20 mg PEG BID Lovenox 40mg SC daily SCDs and offloading boots continue to turn and reposition q2hrs Continue to monitor medication administrations and clinical presentation weekly labs. vasoline ointment applied to feet prn to prevent hyperkeratosis Please hold feeding from 10pm-6am, placed into nursing communication tube feedings held (07/22) until ct abdomen comes back NS @ 50 ml/hr
[2017-08-02] MEDS: Ciprofloxacin 400mg/200ml D5W 400 MG/200 ML BAG IVPB SCH ×2 (07:00→19:10)
[2017-08-02] MEDS: levETIRAcetam 100 mg/ml (5ml) Oral Syringe PEG SCH ×2 (09:16→17:12)
[2017-08-02] MEDS: Saccharomyces Boulardi 250 mg Cap PEG SCH (09:16)
[2017-08-03] MEDS: Meropenem 1 GM in Sodium Chloride 0.9% 100 ML IVPB SCH ×3 (06:00→21:45)
[2017-08-03] MEDS: Ciprofloxacin 400mg/200ml D5W 400 MG/200 ML BAG IVPB SCH ×2 (07:34→20:04)
[2017-08-03 08:27] LABS: BASO # 0.1 K/uL (0.0-0.2); EOS # 0.3 K/uL (0.0-0.7); EOS % 3.8 % (0.0-4.0); LYMPH # 2.3 K/uL (1.0-4.3); LYMPH % 27.9 % (20.0-40.0); MEAN CELL VOLUME 88.2 fL (80.0-94.0); MEAN CORPUSCULAR HEMOGLOBIN 28.8 pg (27.0-31.0); MEAN CORPUSCULAR HGB CONC 32.7 g/dL (33.0-37.0); MEAN PLATELET VOLUME 7.6 fL (7.2-11.7); MONO # 0.8 K/uL (0.0-0.8); MONO % 9.5 % (0.0-10.0); NEUT # 4.9 K/uL (1.8-7.0); NEUT % 57.8 % (50.0-75.0); NRBC % 0.1 % (0.0-2.0); RBC 3.47 Mil/uL (4.40-5.90); RED CELL DISTRIBUTION WIDTH 16.1 % (11.5-14.5); WHITE BLOOD COUNT 8.4 K/uL (4.8-10.8)
[2017-08-03 08:49] LABS: ALB/GLOB RATIO 0.7 (1.0-2.1); ALBUMIN 3.1 g/dL (3.5-5.0); ALT/SGPT 40 U/L (21-72); AST/SGOT 29 U/L (17-59); BLOOD UREA NITROGEN 11 mg/dL (9-20); CALCIUM 8.4 mg/dl (8.6-10.4); GFR NON-AFRICAN AMERICAN > 60
--- NOTE | 2017-08-03 09:19 | CP.PCM.PN ---
<Alisia Pappas - Last Filed: 08/03/17 17:41> Subjective - Date & Time of Evaluation Date of Evaluation: 08/03/17 Time of Evaluation: 07:00 - Subjective Subjective: Medicine Progress Note: Patient was seen and examined at bedside in the AM. ROS unattainable due to anoxic brain injury. Objective - Vital Signs/Intake and Output Vital Signs (last 24 hours): Temp Pulse Resp BP Pulse Ox 98.1 F 85 20 116/76 98 08/03/17 01:00 08/03/17 01:00 08/03/17 01:00 08/03/17 01:00 08/03/17 01:00 Intake and Output: 08/03/17 08/03/17 06:59 18:59 Intake Total 1700 Output Total 1500 Balance 200 - Medications Medications: Current Medications Aspirin (Aspirin Chewable) 81 mg PEG DAILY [facility] Last Admin: 08/02/17 09:16 Dose: 81 mg Bethanechol Chloride (Urecholine) 50 mg PEG TID [facility] Last Admin: 08/02/17 17:16 Dose: 50 mg Carvedilol (Coreg) 3.125 mg PEG BID [facility] Last Admin: 08/02/17 17:16 Dose: 3.125 mg Clopidogrel Bisulfate (Plavix) 75 mg PEG DAILY [facility] Last Admin: 07/25/17 10:06 Dose: 75 mg Emollient Ointment (Vaseline Oint) 5 gm TOP DAILY PRN PRN Reason: Dry skin Last Admin: 07/30/17 09:07 Dose: 5 gm Famotidine (Pepcid) 20 mg PEG DAILY [facility] Last Admin: 08/02/17 09:16 Dose: 20 mg Finasteride (Proscar) 5 mg PEG DAILY [facility] Last Admin: 08/02/17 09:16 Dose: 5 mg Ciprofloxacin (Cipro 400mg/200ml Dsw) 400 mg in 200 mls @ 133 mls/hr IVPB Q12H [facility] Last Admin: 08/03/17 07:34 Dose: 133 mls/hr Meropenem 1 gm/ Sodium (Chloride) 100 mls @ 100 mls/hr IVPB Q8 [facility] Last Admin: 08/03/17 06:00 Dose: 100 mls/hr Levetiracetam (Keppra) 500 mg PEG BID [facility] Last Admin: 08/02/17 17:12 Dose: 500 mg Saccharomyces Boulardii (Florastor) 250 mg PEG DAILY [facility] Last Admin: 08/02/17 09:16 Dose: 250 mg Scopolamine (Transderm-Scop) 1 patch TD Q3D [facility] Last Admin: 07/31/17 20:40 Dose: 1 patch Tamsulosin HCl (Flomax) 0.4 mg PEG DAILY [facility] Last Admin: 08/02/17 09:16 Dose: 0.4 mg Ticagrelor (Brilinta) 90 mg PO BID [facility] Last Admin: 08/02/17 17:15 Dose: 90 mg - Labs Labs: 08/03/17 08:20 08/03/17 08:20 PT 10.6 SECONDS (9.7-12.2) 11/24/15 14:10 INR 1.0 11/24/15 14:10 APTT 25 SECONDS (21-34) 11/24/15 14:10 - Constitutional Appears: Chronically Ill - Head Exam Head Exam: ATRAUMATIC, NORMAL INSPECTION, NORMOCEPHALIC - Respiratory Exam Respiratory Exam: NORMAL BREATHING PATTERN Additional comments: Trach in place - Cardiovascular Exam Cardiovascular Exam: REGULAR RHYTHM - GI/Abdominal Exam GI & Abdominal Exam: Soft, Normal Bowel Sounds - Neurological Exam Neurological Exam: absent: Alert, Awake, Oriented x3 - Skin Skin Exam: Normal Color Assessment and Plan - Assessment and Plan (Free Text) Plan: Hypokalemia K+ on 08/03: 3.5 Leukocytosis secondary to UTI 08/03: WBC 8.4 Meropenem (started 07/22) - per Dr. Armstrong continue for 2 weeks ID consult: Dr. Armstrong --> help appreciated Febrile 07/29: afebrile Anoxic encephalopathy s/p cardiac arrest in 05/2015 no acute changes Pt has non spontaneous movements. Continue tube feeds- goal of 60ml/hr, feedings held at night due to fluid overload Urinary retention 07/21: NS stopped because tube feeds restarted 07/20: Urine dark in color, monitor, continue NS at 50 ml per hour 07/07/17: Catheter flushed, patient output approx. 500mL within one hour post flush. 06/27/17: Continue bladder massages to aid in voiding. 06/25/17: Patient voids with movement. Continue bladder massages to aid in voiding. 06/23/17: Patient will need to have daily bladder massage to allow for complete voiding 06/17/17: Nursing communication placed in: straight catherization with bladder scan> 100ml 06/08: urinary retention yesterday, was given 40mg lasix iv and patient was able to urinate through condom baker Take note condom cath not always securely in place so Is and Os are approximate as patient does wet bed Ordered- new condom catheter on 05/22/17 Flomax 0.4mg PEG daily Proscar 5mg PEG daily continue Bethanecol 50mg PEG TID- started after persistent retention and found to be effective. monitor I's and O's Check bladder scan for residual urine three times weekly Respiratory failure Trach in place, continue daily monitoring for secretions. No change in management at this time. Continue with aggressive suctioning multiple times a day per respiratory therapist. Monitor for signs of respiratory distress Thick secretions Duoneb 3ml INH Q6 and Mucomyst 4ml INH Q6H Robitussin 100mg PEG Q12H Scopolamine 1 patch TD Q3D JOO Repeat CXR on 05/28/17: linear increased consolidative changes in the right mid- lung zone and left lung base which may represent atelectasis and/or infiltrate. Questionable trace left pleural effusion. moderate venous congestion. cardiomegaly. degenerative changes in the spine and shoulders Sacral ulcer Healed Cont with offloading/cushioning/turning Continue frequent turning, protective ointment and skin checks. History of coronary artery disease s/p cardiac stents on 06/13/15 Cont ASA 81mg via PEG daily Cont Coreg 3.125mg PEG BID Seizures Continue Keppra 500mg PEG BID for seizure prophylaxis Monitor for activity Lower extremity edema Improved SCDs in place Pressure ulcer boots on b/l Continue to monitor Prophylactic measure Pepcid 20 mg PEG BID Lovenox 40mg SC daily SCDs and offloading boots continue to turn and reposition q2hrs Continue to monitor medication administrations and clinical presentation weekly labs. vasoline ointment applied to feet prn to prevent hyperkeratosis Please hold feeding from 10pm-6am, placed into nursing communication tube feedings held (07/22) until ct abdomen comes back NS @ 50 ml/hr Discussed Case with Dr. Stepan Pappas PGY-1 <Donnell Ying M - Last Filed: 08/03/17 18:50> Objective - Vital Signs/Intake and Output Vital Signs (last 24 hours): Temp Pulse Resp BP Pulse Ox 98.2 F 81 20 93/61 L 98 08/03/17 15:00 08/03/17 15:00 08/03/17 15:00 08/03/17 15:00 08/03/17 15:00 Intake and Output: 08/03/17 08/03/17 06:59 18:59 Intake Total 1700 Output Total 1500 Balance 200 - Medications Medications: Current Medications Aspirin (Aspirin Chewable) 81 mg PEG DAILY [facility] Last Admin: 08/03/17 09:31 Dose: 81 mg Bethanechol Chloride (Urecholine) 50 mg PEG TID [facility] Last Admin: 08/03/17 17:46 Dose: 50 mg Carvedilol (Coreg) 3.125 mg PEG BID [facility] Last Admin: 08/03/17 17:46 Dose: Not Given Clopidogrel Bisulfate (Plavix) 75 mg PEG DAILY [facility] Last Admin: 07/25/17 10:06 Dose: 75 mg Emollient Ointment (Vaseline Oint) 5 gm TOP DAILY PRN PRN Reason: Dry skin Last Admin: 07/30/17 09:07 Dose: 5 gm Enoxaparin Sodium (Lovenox) 40 mg SC DAILY [facility] Last Admin: 08/03/17 14:16 Dose: 40 mg Famotidine (Pepcid) 20 mg PEG DAILY [facility] Last Admin: 08/03/17 09:31 Dose: 20 mg Finasteride (Proscar) 5 mg PEG DAILY [facility] Last Admin: 08/03/17 09:31 Dose: 5 mg Ciprofloxacin (Cipro 400mg/200ml Dsw) 400 mg in 200 mls @ 133 mls/hr IVPB Q12H [facility] Last Admin: 08/03/17 07:34 Dose: 133 mls/hr Meropenem 1 gm/ Sodium (Chloride) 100 mls @ 100 mls/hr IVPB Q8 [facility] Last Admin: 08/03/17 13:19 Dose: 100 mls/hr Levetiracetam (Keppra) 500 mg PEG BID [facility] Last Admin: 08/03/17 17:46 Dose: 500 mg Saccharomyces Boulardii (Florastor) 250 mg PEG DAILY [facility] Last Admin: 08/03/17 09:31 Dose: 250 mg Scopolamine (Transderm-Scop) 1 patch TD Q3D [facility] Last Admin: 07/31/17 20:40 Dose: 1 patch Tamsulosin HCl (Flomax) 0.4 mg PEG DAILY [facility] Last Admin: 08/03/17 09:31 Dose: 0.4 mg - Labs Labs: 08/03/17 08:20 08/03/17 08:20 PT 10.6 SECONDS (9.7-12.2) 11/24/15 14:10 INR 1.0 11/24/15 14:10 APTT 25 SECONDS (21-34) 11/24/15 14:10 Attending/Attestation - Attestation I have personally seen and examined this patient.: Yes I have fully participated in the care of the patient.: Yes I have reviewed all pertinent clinical information, including history, physical exam and plan: Yes Notes (Text): 08/03/17 18:49 Patient was seen and examined at bedside with the resident Patient is an IV antibiotics for UTI Follow-up recommendations of ID regarding duration of antibiotics. Replace electrolytes Discussed the plan of care with the resident and agree with the assessment and treatment.
[2017-08-03] MEDS: levETIRAcetam 100 mg/ml (5ml) Oral Syringe PEG SCH ×2 (09:30→17:46)
[2017-08-03] MEDS: Saccharomyces Boulardi 250 mg Cap PEG SCH (09:31)
[2017-08-03] MEDS: Enoxaparin 40 mg Syringe SC SCH (14:16)
[2017-08-04] MEDS: Meropenem 1 GM in Sodium Chloride 0.9% 100 ML IVPB SCH ×2 (06:09→14:44)
[2017-08-04] MEDS: Ciprofloxacin 400mg/200ml D5W 400 MG/200 ML BAG IVPB SCH (08:20)
--- NOTE | 2017-08-04 09:26 | CP.PCM.PN ---
<Alisia Pappas - Last Filed: 08/04/17 15:38> Subjective - Date & Time of Evaluation Date of Evaluation: 08/04/17 Time of Evaluation: 07:30 - Subjective Subjective: Medicine Progress Note: Patient was seen and examined at bedside in the AM. ROS unattainable due to anoxic brain injury. Per nurse no bed sores seen when she moved him. Objective - Vital Signs/Intake and Output Vital Signs (last 24 hours): Temp Pulse Resp BP Pulse Ox 98 F 84 20 104/73 97 08/04/17 09:10 08/04/17 09:10 08/04/17 09:10 08/04/17 09:10 08/04/17 09:10 Intake and Output: 08/04/17 08/04/17 06:59 18:59 Intake Total 1350 Output Total 1600 Balance -250 - Medications Medications: Current Medications Aspirin (Aspirin Chewable) [address] [facility] Last Admin: 08/03/17 09:31 Dose: 81 mg Bethanechol Chloride (Urecholine) [address] [facility] Last Admin: 08/03/17 17:46 Dose: 50 mg Carvedilol (Coreg) 3.[address] [facility] Last Admin: 08/03/17 17:46 Dose: Not Given Clopidogrel Bisulfate (Plavix) [address] [facility] Last Admin: 07/25/17 10:06 Dose: 75 mg Emollient Ointment (Vaseline Oint) 5 gm TOP DAILY PRN PRN Reason: Dry skin Last Admin: 07/30/17 09:07 Dose: 5 gm Enoxaparin Sodium (Lovenox) [address] [facility] Last Admin: 08/03/17 14:16 Dose: 40 mg Famotidine (Pepcid) [address] [facility] Last Admin: 08/03/17 09:31 Dose: 20 mg Finasteride (Proscar) [address] [facility] Last Admin: 08/03/17 09:31 Dose: 5 mg Ciprofloxacin (Cipro 400mg/200ml Dsw) 400 mg in 200 mls @ 133 mls/hr IVPB Q12H [facility] Last Admin: 08/04/17 08:20 Dose: 133 mls/hr Meropenem 1 gm/ Sodium (Chloride) 100 mls @ 100 mls/hr IVPB Q8 [facility] Last Admin: 08/04/17 06:09 Dose: 100 mls/hr Levetiracetam (Keppra) [address] [facility] Last Admin: 08/03/17 17:46 Dose: 500 mg Saccharomyces Boulardii (Florastor) [address] [facility] Last Admin: 08/03/17 09:31 Dose: 250 mg Scopolamine (Transderm-Scop) [address] [facility] Last Admin: 08/03/17 20:05 Dose: 1 patch Tamsulosin HCl (Flomax) 0.[address] [facility] Last Admin: 08/03/17 09:31 Dose: 0.4 mg - Labs Labs: 08/03/17 08:20 08/03/17 08:20 PT 10.6 SECONDS (9.7-12.2) 11/24/15 14:10 INR 1.0 11/24/15 14:10 APTT 25 SECONDS (21-34) 11/24/15 14:10 - Constitutional Appears: Chronically Ill - Head Exam Head Exam: ATRAUMATIC, NORMAL INSPECTION, NORMOCEPHALIC - Respiratory Exam Respiratory Exam: NORMAL BREATHING PATTERN Additional comments: Trach in place - Cardiovascular Exam Cardiovascular Exam: REGULAR RHYTHM - GI/Abdominal Exam GI & Abdominal Exam: Soft, Normal Bowel Sounds - Neurological Exam Neurological Exam: absent: Alert, Awake, Oriented x3 - Skin Skin Exam: Normal Color Assessment and Plan - Assessment and Plan (Free Text) Plan: 1.) Anoxic encephalopathy s/p cardiac arrest in 05/2015 no acute changes Pt has non spontaneous movements. Continue tube feeds- goal of 60ml/hr, feedings held at night due to fluid overload 2.) Respiratory failure Trach in place, continue daily monitoring for secretions. No change in management at this time. Continue with aggressive suctioning multiple times a day per respiratory therapist. Monitor for signs of respiratory distress Thick secretions Duoneb 3ml INH Q6 and Mucomyst 4ml INH Q6H Robitussin 100mg PEG Q12H Scopolamine [address] [facility] Repeat CXR on 05/28/17: linear increased consolidative changes in the right mid- lung zone and left lung base which may represent atelectasis and/or infiltrate. Questionable trace left pleural effusion. moderate venous congestion. cardiomegaly. degenerative changes in the spine and shoulders 3.) Leukocytosis secondary to UTI 08/03: WBC 8.4 afebrile as of 07/29 Meropenem (started 07/22) - per Dr. Armstrong continue for a total of 2 weeks ID consult: Dr. Armstrong --> help appreciated 4.) Urinary retention 07/21: NS stopped because tube feeds restarted 07/20: Urine dark in color, monitor, continue NS at 50 ml per hour 07/07/17: Catheter flushed, patient output approx. 500mL within one hour post flush. 06/27/17: Continue bladder massages to aid in voiding. 06/25/17: Patient voids with movement. Continue bladder massages to aid in voiding. 06/23/17: Patient will need to have daily bladder massage to allow for complete voiding 06/17/17: Nursing communication placed in: straight catherization with bladder scan> 100ml 06/08: urinary retention yesterday, was given 40mg lasix iv and patient was able to urinate through condom baker Take note condom cath not always securely in place so Is and Os are approximate as patient does wet bed Ordered- new condom catheter on 05/22/17 Flomax 0.4mg PEG daily Proscar 5mg PEG daily continue Bethanecol 50mg PEG TID- started after persistent retention and found to be effective. monitor I's and O's Check bladder scan for residual urine three times weekly 5.) Hypokalemia K+ on 08/03: 3.5 6.) Sacral ulcer Healed Cont with offloading/cushioning/turning Continue frequent turning, protective ointment and skin checks. 7.) History of coronary artery disease s/p cardiac stents on 06/13/15 Cont ASA 81mg via PEG daily Cont Coreg 3.125mg PEG BID 8.) Seizures Continue Keppra 500mg PEG BID for seizure prophylaxis Monitor for activity 9.) Lower extremity edema Improved SCDs in place Pressure ulcer boots on b/l Continue to monitor 10.) Prophylactic measure Pepcid 20 mg PEG BID Lovenox 40mg SC daily SCDs and offloading boots continue to turn and reposition q2hrs Continue to monitor medication administrations and clinical presentation weekly labs. vasoline ointment applied to feet prn to prevent hyperkeratosis Please hold feeding from 10pm-6am, placed into nursing communication Discussed Case with Dr. Stepan Pappas PGY-1 <Donnell Ying M - Last Filed: 08/04/17 17:18> Objective - Vital Signs/Intake and Output Vital Signs (last 24 hours): Temp Pulse Resp BP Pulse Ox 97.4 F L 97 H 20 110/76 97 08/04/17 15:00 08/04/17 15:00 08/04/17 15:00 08/04/17 15:00 08/04/17 15:00 Intake and Output: 08/04/17 08/04/17 06:59 18:59 Intake Total 1350 700 Output Total 1600 100 Balance -250 600 - Medications Medications: Current Medications Acetylcysteine (Acetylcysteine 20%) 4 ml INH Q8H JOO Albuterol/Ipratropium (Duoneb 3 Mg/0.5 Mg (3 Ml) Ud) 3 ml INH RQ8 JOO Aspirin (Aspirin Chewable) [address] [facility] Last Admin: 08/04/17 09:27 Dose: 81 mg Bethanechol Chloride (Urecholine) [address] [facility] Last Admin: 08/04/17 14:50 Dose: 50 mg Carvedilol (Coreg) 3.[address] [facility] Last Admin: 08/04/17 09:27 Dose: 3.125 mg Clopidogrel Bisulfate (Plavix) [address] [facility] Last Admin: 08/04/17 09:27 Dose: 75 mg Emollient Ointment (Vaseline Oint) 5 gm TOP DAILY PRN PRN Reason: Dry skin Last Admin: 07/30/17 09:07 Dose: 5 gm Enoxaparin Sodium (Lovenox) [address] [facility] Last Admin: 08/04/17 09:28 Dose: 40 mg Famotidine (Pepcid) [address] [facility] Last Admin: 08/04/17 09:27 Dose: 20 mg Finasteride (Proscar) [address] [facility] Last Admin: 08/04/17 09:28 Dose: 5 mg Meropenem 1 gm/ Sodium (Chloride) 100 mls @ 100 mls/hr IVPB Q8 [facility] Last Admin: 08/04/17 14:44 Dose: 100 mls/hr Levetiracetam (Keppra) [address] [facility] Last Admin: 08/04/17 09:29 Dose: 500 mg Saccharomyces Boulardii (Florastor) [address] [facility] Last Admin: 08/04/17 09:28 Dose: 250 mg Scopolamine (Transderm-Scop) [address] [facility] Last Admin: 08/03/17 20:05 Dose: 1 patch Tamsulosin HCl (Flomax) 0.[address] [facility] Last Admin: 08/04/17 09:27 Dose: 0.4 mg - Labs Labs: 08/03/17 08:20 08/03/17 08:20 PT 10.6 SECONDS (9.7-12.2) 11/24/15 14:10 INR 1.0 11/24/15 14:10 APTT 25 SECONDS (21-34) 11/24/15 14:10 Attending/Attestation - Attestation I have personally seen and examined this patient.: Yes I have fully participated in the care of the patient.: Yes I have reviewed all pertinent clinical information, including history, physical exam and plan: Yes Notes (Text): 08/04/17 17:18 Patient was seen and examined at bedside with the resident We will continue current medical management No change in patient's clinical condition Patient needs 1 more day of IV antibiotics as per recommendations of ID. Discussed the plan of care with the resident and agree with assessment and plan documented.
[2017-08-04] MEDS: Saccharomyces Boulardi 250 mg Cap PEG SCH (09:28)
[2017-08-04] MEDS: Enoxaparin 40 mg Syringe SC SCH (09:28)
[2017-08-04] MEDS: levETIRAcetam 100 mg/ml (5ml) Oral Syringe PEG SCH ×2 (09:29→18:36)
[2017-08-04] MEDS: Acetylcysteine 20% Inhal Soln (4ml) INH SCH (19:00)
[2017-08-04] MEDS: Albuterol-Ipratrop 3 mg / 0.5 (3 ml) UD INH SCH (19:00)
--- NOTE | 2017-08-04 20:38 | CP.PCM.PN ---
Subjective - Date & Time of Evaluation Date of Evaluation: 08/04/17 Time of Evaluation: 03:20 - Subjective Subjective: dictated Objective - Vital Signs/Intake and Output Vital Signs (last 24 hours): Temp Pulse Resp BP Pulse Ox 97.4 F L 97 H 20 110/76 97 08/04/17 15:00 08/04/17 15:00 08/04/17 15:00 08/04/17 15:00 08/04/17 15:00 Intake and Output: 08/04/17 08/05/17 18:59 06:59 Intake Total 700 Output Total 100 Balance 600 - Medications Medications: Current Medications Acetylcysteine (Acetylcysteine 20%) 4 ml INH Q8H [facility] Albuterol/Ipratropium (Duoneb 3 Mg/0.5 Mg (3 Ml) Ud) 3 ml INH RQ8 [facility] Aspirin (Aspirin Chewable) 81 mg PEG DAILY [facility] Last Admin: 08/04/17 09:27 Dose: 81 mg Bethanechol Chloride (Urecholine) 50 mg PEG TID [facility] Last Admin: 08/04/17 18:35 Dose: 50 mg Carvedilol (Coreg) 3.125 mg PEG BID [facility] Last Admin: 08/04/17 18:35 Dose: 3.125 mg Clopidogrel Bisulfate (Plavix) 75 mg PEG DAILY [facility] Last Admin: 08/04/17 09:27 Dose: 75 mg Emollient Ointment (Vaseline Oint) 5 gm TOP DAILY PRN PRN Reason: Dry skin Last Admin: 07/30/17 09:07 Dose: 5 gm Enoxaparin Sodium (Lovenox) 40 mg SC DAILY [facility] Last Admin: 08/04/17 09:28 Dose: 40 mg Famotidine (Pepcid) 20 mg PEG DAILY [facility] Last Admin: 08/04/17 09:27 Dose: 20 mg Finasteride (Proscar) 5 mg PEG DAILY [facility] Last Admin: 08/04/17 09:28 Dose: 5 mg Fluconazole (Diflucan) 100 mg PEG DAILY [facility] Levetiracetam (Keppra) 500 mg PEG BID [facility] Last Admin: 08/04/17 18:36 Dose: 500 mg Saccharomyces Boulardii (Florastor) 250 mg PEG DAILY [facility] Last Admin: 08/04/17 09:28 Dose: 250 mg Scopolamine (Transderm-Scop) 1 patch TD Q3D [facility] Last Admin: 08/03/17 20:05 Dose: 1 patch Tamsulosin HCl (Flomax) 0.4 mg PEG DAILY [facility] Last Admin: 08/04/17 09:27 Dose: 0.4 mg - Labs Labs: 08/03/17 08:20 08/03/17 08:20 PT 10.6 SECONDS (9.7-12.2) 11/24/15 14:10 INR 1.0 11/24/15 14:10 APTT 25 SECONDS (21-34) 11/24/15 14:10
--- NOTE | 2017-08-05 02:40 | PN ---
SUBJECTIVE: The patient was seen. Today, he remains with trach band. He has a history of anoxic encephalopathy and he remains with the trach and bag and unresponsive. PHYSICAL EXAMINATION VITAL SIGNS: T-max of 97.4, pulse 97, blood pressure 110/76, respirations are 20. HEENT: Head is atraumatic. Trach site is unremarkable. NECK: Supple. LUNGS: Occasional rhonchi. HEART: S1 and S2 is regular. ABDOMEN: Appears soft, nontender. EXTREMITIES: Trace edema. LABORATORY DATA: White count 8.4, hemoglobin 10, hematocrit 30.6, platelet count is 572. Sodium is 141, potassium is 3.5, chloride is 103, CO2 is 29. Recently, he had urine culture, no yeast on it. and he had Proteus and he has been on IV antibiotics and this was positive of 07/12; now, we are coming to 08/04, so we will discontinue most of the antibiotics and place him on Diflucan and we will follow. Status post septicemia and his white count has increased at this time. Belem Armstrong MD MTDKaylynn
[2017-08-05] MEDS: Acetylcysteine 20% Inhal Soln (4ml) INH SCH ×4 (03:54→22:44)
[2017-08-05] MEDS: Albuterol-Ipratrop 3 mg / 0.5 (3 ml) UD INH SCH ×3 (03:54→16:43)
--- NOTE | 2017-08-05 06:29 | CP.PCM.PN ---
<Alisia Pappas - Last Filed: 08/05/17 17:24> Subjective - Date & Time of Evaluation Date of Evaluation: 08/05/17 Time of Evaluation: 07:00 - Subjective Subjective: Medicine Progress Note: Patient was seen and examined at bedside in the AM. ROS unattainable due to anoxic brain injury. Objective - Vital Signs/Intake and Output Vital Signs (last 24 hours): Temp Pulse Resp BP Pulse Ox 98.7 F 74 20 109/71 99 08/04/17 23:35 08/04/17 23:35 08/04/17 23:35 08/04/17 23:35 08/04/17 23:35 Intake and Output: 08/04/17 08/05/17 18:59 06:59 Intake Total 700 700 Output Total 100 350 Balance 600 350 - Medications Medications: Current Medications Acetylcysteine (Acetylcysteine 20%) 4 ml INH Q8H [facility] Last Admin: 08/05/17 03:54 Dose: Not Given Albuterol/Ipratropium (Duoneb 3 Mg/0.5 Mg (3 Ml) Ud) 3 ml INH RQ8 [facility] Last Admin: 08/05/17 03:54 Dose: Not Given Aspirin (Aspirin Chewable) 81 mg PEG DAILY [facility] Last Admin: 08/04/17 09:27 Dose: 81 mg Bethanechol Chloride (Urecholine) 50 mg PEG TID [facility] Last Admin: 08/04/17 18:35 Dose: 50 mg Carvedilol (Coreg) 3.125 mg PEG BID [facility] Last Admin: 08/04/17 18:35 Dose: 3.125 mg Clopidogrel Bisulfate (Plavix) 75 mg PEG DAILY [facility] Last Admin: 08/04/17 09:27 Dose: 75 mg Emollient Ointment (Vaseline Oint) 5 gm TOP DAILY PRN PRN Reason: Dry skin Last Admin: 07/30/17 09:07 Dose: 5 gm Enoxaparin Sodium (Lovenox) 40 mg SC DAILY [facility] Last Admin: 08/04/17 09:28 Dose: 40 mg Famotidine (Pepcid) 20 mg PEG DAILY [facility] Last Admin: 08/04/17 09:27 Dose: 20 mg Finasteride (Proscar) 5 mg PEG DAILY [facility] Last Admin: 08/04/17 09:28 Dose: 5 mg Fluconazole (Diflucan) 100 mg PEG DAILY [facility] Levetiracetam (Keppra) 500 mg PEG BID [facility] Last Admin: 08/04/17 18:36 Dose: 500 mg Saccharomyces Boulardii (Florastor) 250 mg PEG DAILY [facility] Last Admin: 08/04/17 09:28 Dose: 250 mg Scopolamine (Transderm-Scop) 1 patch TD Q3D [facility] Last Admin: 08/03/17 20:05 Dose: 1 patch Tamsulosin HCl (Flomax) 0.4 mg PEG DAILY [facility] Last Admin: 08/04/17 09:27 Dose: 0.4 mg - Labs Labs: 08/03/17 08:20 08/03/17 08:20 PT 10.6 SECONDS (9.7-12.2) 11/24/15 14:10 INR 1.0 11/24/15 14:10 APTT 25 SECONDS (21-34) 11/24/15 14:10 - Constitutional Appears: Chronically Ill - Head Exam Head Exam: ATRAUMATIC, NORMAL INSPECTION, NORMOCEPHALIC - Respiratory Exam Respiratory Exam: NORMAL BREATHING PATTERN Additional comments: Trach in place - Cardiovascular Exam Cardiovascular Exam: REGULAR RHYTHM - GI/Abdominal Exam GI & Abdominal Exam: Soft, Normal Bowel Sounds - Neurological Exam Neurological Exam: absent: Alert, Awake, Oriented x3 - Skin Skin Exam: Normal Color Assessment and Plan - Assessment and Plan (Free Text) Plan: 1.) Anoxic encephalopathy s/p cardiac arrest in 05/2015 no acute changes Pt has non spontaneous movements. Continue tube feeds- goal of 60ml/hr, feedings held at night due to fluid overload 2.) Respiratory failure Trach in place, continue daily monitoring for secretions. No change in management at this time. Continue with aggressive suctioning multiple times a day per respiratory therapist. Monitor for signs of respiratory distress Thick secretions Duoneb 3ml INH Q6 and Mucomyst 4ml INH Q6H Robitussin 100mg PEG Q12H Scopolamine 1 patch TD Q3D [facility] Repeat CXR on 05/28/17: linear increased consolidative changes in the right mid- lung zone and left lung base which may represent atelectasis and/or infiltrate. Questionable trace left pleural effusion. moderate venous congestion. cardiomegaly. degenerative changes in the spine and shoulders 3.) Leukocytosis secondary to UTI Resolved 08/03: WBC 8.4 afebrile as of 07/29 Meropenem (started 07/22) - per Dr. Armstrong continue for a total of 2 weeks - Discontinued 08/05/17 ID consult: Dr. Armstrong --> help appreciated 4.) Urinary retention 07/21: NS stopped because tube feeds restarted 07/20: Urine dark in color, monitor, continue NS at 50 ml per hour 07/07/17: Catheter flushed, patient output approx. 500mL within one hour post flush. 06/27/17: Continue bladder massages to aid in voiding. 06/25/17: Patient voids with movement. Continue bladder massages to aid in voiding. 06/23/17: Patient will need to have daily bladder massage to allow for complete voiding 06/17/17: Nursing communication placed in: straight catherization with bladder scan> 100ml 06/08: urinary retention yesterday, was given 40mg lasix iv and patient was able to urinate through condom baker Take note condom cath not always securely in place so Is and Os are approximate as patient does wet bed Ordered- new condom catheter on 05/22/17 Flomax 0.4mg PEG daily Proscar 5mg PEG daily continue Bethanecol 50mg PEG TID- started after persistent retention and found to be effective. monitor I's and O's Check bladder scan for residual urine three times weekly 5.) Hypokalemia K+ on 08/03: 3.5 6.) Sacral ulcer Healed Cont with offloading/cushioning/turning Continue frequent turning, protective ointment and skin checks. 7.) History of coronary artery disease s/p cardiac stents on 06/13/15 Cont ASA 81mg via PEG daily Cont Coreg 3.125mg PEG BID 8.) Seizures Continue Keppra 500mg PEG BID for seizure prophylaxis Monitor for activity 9.) Lower extremity edema Improved SCDs in place Pressure ulcer boots on b/l Continue to monitor 10.) Prophylactic measure Pepcid 20 mg PEG BID Lovenox 40mg SC daily SCDs and offloading boots continue to turn and reposition q2hrs Continue to monitor medication administrations and clinical presentation weekly labs. vasoline ointment applied to feet prn to prevent hyperkeratosis Please hold feeding from 10pm-6am, placed into nursing communication Discussed Case with Dr. Stepan Pappas PGY-1 <Donnell Ying M - Last Filed: 08/06/17 13:31> Objective - Vital Signs/Intake and Output Vital Signs (last 24 hours): Temp Pulse Resp BP Pulse Ox 97.7 F 84 20 100/66 97 08/06/17 07:37 08/06/17 07:37 08/06/17 07:37 08/06/17 07:37 08/06/17 07:37 Intake and Output: 08/06/17 08/06/17 06:59 18:59 Intake Total 1400 Output Total 1200 Balance 200 - Medications Medications: Current Medications Acetylcysteine (Acetylcysteine 20%) 4 ml INH Q8H [facility] Last Admin: 08/06/17 07:22 Dose: 4 ml Albuterol/Ipratropium (Duoneb 3 Mg/0.5 Mg (3 Ml) Ud) 3 ml INH RQ8 [facility] Last Admin: 08/06/17 07:22 Dose: 3 ml Aspirin (Aspirin Chewable) 81 mg PEG DAILY [facility] Last Admin: 08/06/17 10:08 Dose: 81 mg Bethanechol Chloride (Urecholine) 50 mg PEG TID [facility] Last Admin: 08/06/17 10:08 Dose: 50 mg Carvedilol (Coreg) 3.125 mg PEG BID [facility] Last Admin: 08/06/17 10:08 Dose: 3.125 mg Clopidogrel Bisulfate (Plavix) 75 mg PEG DAILY [facility] Last Admin: 08/06/17 10:07 Dose: 75 mg Emollient Ointment (Vaseline Oint) 5 gm TOP DAILY PRN PRN Reason: Dry skin Last Admin: 07/30/17 09:07 Dose: 5 gm Enoxaparin Sodium (Lovenox) 40 mg SC DAILY [facility] Last Admin: 08/06/17 10:08 Dose: 40 mg Famotidine (Pepcid) 20 mg PEG DAILY [facility] Last Admin: 08/06/17 10:08 Dose: 20 mg Finasteride (Proscar) 5 mg PEG DAILY [facility] Last Admin: 08/06/17 10:08 Dose: 5 mg Fluconazole (Diflucan) 100 mg PEG DAILY [facility] Last Admin: 08/06/17 10:06 Dose: 100 mg Levetiracetam (Keppra) 500 mg PEG BID [facility] Last Admin: 08/06/17 10:06 Dose: 500 mg Saccharomyces Boulardii (Florastor) 250 mg PEG DAILY [facility] Last Admin: 08/06/17 10:07 Dose: 250 mg Scopolamine (Transderm-Scop) 1 patch TD Q3D [facility] Last Admin: 08/03/17 20:05 Dose: 1 patch Tamsulosin HCl (Flomax) 0.4 mg PEG DAILY [facility] Last Admin: 08/06/17 10:08 Dose: 0.4 mg - Labs Labs: 08/03/17 08:20 08/03/17 08:20 PT 10.6 SECONDS (9.7-12.2) 11/24/15 14:10 INR 1.0 11/24/15 14:10 APTT 25 SECONDS (21-34) 11/24/15 14:10 Attending/Attestation - Attestation I have personally seen and examined this patient.: Yes I have fully participated in the care of the patient.: Yes I have reviewed all pertinent clinical information, including history, physical exam and plan: Yes Notes (Text): 08/06/17 13:30 Patient was seen and examined at bedside with the resident Continue current medical management Continue antibiotics for 1 more day as per recommendations of ID I discussed the plan of care with the resident and agree with the assessment and documented.
[2017-08-05] MEDS: Saccharomyces Boulardi 250 mg Cap PEG SCH (09:09)
[2017-08-05] MEDS: Enoxaparin 40 mg Syringe SC SCH (09:09)
[2017-08-05] MEDS: levETIRAcetam 100 mg/ml (5ml) Oral Syringe PEG SCH ×2 (09:09→17:46)
[2017-08-06] MEDS: Albuterol-Ipratrop 3 mg / 0.5 (3 ml) UD INH SCH ×3 (00:35→15:40)
[2017-08-06] MEDS: Acetylcysteine 20% Inhal Soln (4ml) INH SCH ×2 (07:22→15:40)
--- NOTE | 2017-08-06 09:28 | CP.PCM.PN ---
<Alisia Pappas - Last Filed: 08/06/17 11:50> Subjective - Date & Time of Evaluation Date of Evaluation: 08/06/17 Time of Evaluation: 07:00 - Subjective Subjective: Medicine Progress Note: Patient was seen and examined at bedside in the AM. ROS unattainable due to anoxic brain injury. Objective - Vital Signs/Intake and Output Vital Signs (last 24 hours): Temp Pulse Resp BP Pulse Ox 97.7 F 84 20 100/66 97 08/06/17 07:37 08/06/17 07:37 08/06/17 07:37 08/06/17 07:37 08/06/17 07:37 Intake and Output: 08/06/17 08/06/17 06:59 18:59 Intake Total 1400 Output Total 1200 Balance 200 - Medications Medications: Current Medications Acetylcysteine (Acetylcysteine 20%) 4 ml INH Q8H [facility] Last Admin: 08/06/17 07:22 Dose: 4 ml Albuterol/Ipratropium (Duoneb 3 Mg/0.5 Mg (3 Ml) Ud) 3 ml INH RQ8 [facility] Last Admin: 08/06/17 07:22 Dose: 3 ml Aspirin (Aspirin Chewable) 81 mg PEG DAILY [facility] Last Admin: 08/05/17 09:09 Dose: 81 mg Bethanechol Chloride (Urecholine) 50 mg PEG TID [facility] Last Admin: 08/05/17 17:46 Dose: 50 mg Carvedilol (Coreg) 3.125 mg PEG BID [facility] Last Admin: 08/05/17 17:46 Dose: 3.125 mg Clopidogrel Bisulfate (Plavix) 75 mg PEG DAILY [facility] Last Admin: 08/05/17 09:09 Dose: 75 mg Emollient Ointment (Vaseline Oint) 5 gm TOP DAILY PRN PRN Reason: Dry skin Last Admin: 07/30/17 09:07 Dose: 5 gm Enoxaparin Sodium (Lovenox) 40 mg SC DAILY [facility] Last Admin: 08/05/17 09:09 Dose: 40 mg Famotidine (Pepcid) 20 mg PEG DAILY [facility] Last Admin: 08/05/17 09:09 Dose: 20 mg Finasteride (Proscar) 5 mg PEG DAILY [facility] Last Admin: 08/05/17 09:09 Dose: 5 mg Fluconazole (Diflucan) 100 mg PEG DAILY [facility] Last Admin: 08/05/17 09:09 Dose: 100 mg Levetiracetam (Keppra) 500 mg PEG BID [facility] Last Admin: 08/05/17 17:46 Dose: 500 mg Saccharomyces Boulardii (Florastor) 250 mg PEG DAILY [facility] Last Admin: 08/05/17 09:09 Dose: 250 mg Scopolamine (Transderm-Scop) 1 patch TD Q3D [facility] Last Admin: 08/03/17 20:05 Dose: 1 patch Tamsulosin HCl (Flomax) 0.4 mg PEG DAILY [facility] Last Admin: 08/05/17 09:09 Dose: 0.4 mg - Labs Labs: 08/03/17 08:20 08/03/17 08:20 PT 10.6 SECONDS (9.7-12.2) 11/24/15 14:10 INR 1.0 11/24/15 14:10 APTT 25 SECONDS (21-34) 11/24/15 14:10 - Constitutional Appears: Chronically Ill - Head Exam Head Exam: ATRAUMATIC, NORMAL INSPECTION, NORMOCEPHALIC - Respiratory Exam Respiratory Exam: NORMAL BREATHING PATTERN Additional comments: Trach in place - Cardiovascular Exam Cardiovascular Exam: REGULAR RHYTHM - Neurological Exam Neurological Exam: absent: Alert, Awake, Oriented x3 - Skin Skin Exam: Normal Color Assessment and Plan - Assessment and Plan (Free Text) Plan: 1.) Anoxic encephalopathy s/p cardiac arrest in 05/2015 no acute changes Pt has non spontaneous movements. Continue tube feeds- goal of 60ml/hr, feedings held at night due to fluid overload 2.) Respiratory failure Trach in place, continue daily monitoring for secretions. No change in management at this time. Continue with aggressive suctioning multiple times a day per respiratory therapist. Monitor for signs of respiratory distress Thick secretions Duoneb 3ml INH Q6 and Mucomyst 4ml INH Q6H Robitussin 100mg PEG Q12H Scopolamine 1 patch TD Q3D [facility] Repeat CXR on 05/28/17: linear increased consolidative changes in the right mid- lung zone and left lung base which may represent atelectasis and/or infiltrate. Questionable trace left pleural effusion. moderate venous congestion. cardiomegaly. degenerative changes in the spine and shoulders 3.) Leukocytosis secondary to UTI Resolved 08/03: WBC 8.4 afebrile as of 07/29 Meropenem (started 07/22) - per Dr. Armstrong continue for a total of 2 weeks - Discontinued 08/05/17 ID consult: Dr. Armstrong --> help appreciated 4.) Urinary retention 07/21: NS stopped because tube feeds restarted 07/20: Urine dark in color, monitor, continue NS at 50 ml per hour 07/07/17: Catheter flushed, patient output approx. 500mL within one hour post flush. 06/27/17: Continue bladder massages to aid in voiding. 06/25/17: Patient voids with movement. Continue bladder massages to aid in voiding. 06/23/17: Patient will need to have daily bladder massage to allow for complete voiding 06/17/17: Nursing communication placed in: straight catherization with bladder scan> 100ml 06/08: urinary retention yesterday, was given 40mg lasix iv and patient was able to urinate through condom baker Take note condom cath not always securely in place so Is and Os are approximate as patient does wet bed Ordered- new condom catheter on 05/22/17 Flomax 0.4mg PEG daily Proscar 5mg PEG daily continue Bethanecol 50mg PEG TID- started after persistent retention and found to be effective. monitor I's and O's - I/O: 2100/1700 Check bladder scan for residual urine three times weekly 5.) Hypokalemia K+ on 08/03: 3.5 6.) Sacral ulcer Healed Cont with offloading/cushioning/turning Continue frequent turning, protective ointment and skin checks. 7.) History of coronary artery disease s/p cardiac stents on 06/13/15 Cont ASA 81mg via PEG daily Cont Coreg 3.125mg PEG BID 8.) Seizures Continue Keppra 500mg PEG BID for seizure prophylaxis Monitor for activity 9.) Lower extremity edema Improved SCDs in place Pressure ulcer boots on b/l Continue to monitor 10.) Prophylactic measure Pepcid 20 mg PEG BID Lovenox 40mg SC daily SCDs and offloading boots continue to turn and reposition q2hrs Continue to monitor medication administrations and clinical presentation weekly labs. vasoline ointment applied to feet prn to prevent hyperkeratosis Please hold feeding from 10pm-6am, placed into nursing communication Discussed Case with Dr. Stepan Pappas PGY-1 <Donnell Ying M - Last Filed: 08/06/17 13:37> Objective - Vital Signs/Intake and Output Vital Signs (last 24 hours): Temp Pulse Resp BP Pulse Ox 97.7 F 84 20 100/66 97 08/06/17 07:37 08/06/17 07:37 08/06/17 07:37 08/06/17 07:37 08/06/17 07:37 Intake and Output: 08/06/17 08/06/17 06:59 18:59 Intake Total 1400 Output Total 1200 Balance 200 - Medications Medications: Current Medications Acetylcysteine (Acetylcysteine 20%) 4 ml INH Q8H [facility] Last Admin: 08/06/17 07:22 Dose: 4 ml Albuterol/Ipratropium (Duoneb 3 Mg/0.5 Mg (3 Ml) Ud) 3 ml INH RQ8 [facility] Last Admin: 08/06/17 07:22 Dose: 3 ml Aspirin (Aspirin Chewable) 81 mg PEG DAILY [facility] Last Admin: 08/06/17 10:08 Dose: 81 mg Bethanechol Chloride (Urecholine) 50 mg PEG TID [facility] Last Admin: 08/06/17 10:08 Dose: 50 mg Carvedilol (Coreg) 3.125 mg PEG BID [facility] Last Admin: 08/06/17 10:08 Dose: 3.125 mg Clopidogrel Bisulfate (Plavix) 75 mg PEG DAILY [facility] Last Admin: 08/06/17 10:07 Dose: 75 mg Emollient Ointment (Vaseline Oint) 5 gm TOP DAILY PRN PRN Reason: Dry skin Last Admin: 07/30/17 09:07 Dose: 5 gm Enoxaparin Sodium (Lovenox) 40 mg SC DAILY [facility] Last Admin: 08/06/17 10:08 Dose: 40 mg Famotidine (Pepcid) 20 mg PEG DAILY [facility] Last Admin: 08/06/17 10:08 Dose: 20 mg Finasteride (Proscar) 5 mg PEG DAILY [facility] Last Admin: 08/06/17 10:08 Dose: 5 mg Fluconazole (Diflucan) 100 mg PEG DAILY [facility] Last Admin: 08/06/17 10:06 Dose: 100 mg Levetiracetam (Keppra) 500 mg PEG BID [facility] Last Admin: 08/06/17 10:06 Dose: 500 mg Saccharomyces Boulardii (Florastor) 250 mg PEG DAILY [facility] Last Admin: 08/06/17 10:07 Dose: 250 mg Scopolamine (Transderm-Scop) 1 patch TD Q3D [facility] Last Admin: 08/03/17 20:05 Dose: 1 patch Tamsulosin HCl (Flomax) 0.4 mg PEG DAILY [facility] Last Admin: 08/06/17 10:08 Dose: 0.4 mg - Labs Labs: 08/03/17 08:20 08/03/17 08:20 PT 10.6 SECONDS (9.7-12.2) 11/24/15 14:10 INR 1.0 11/24/15 14:10 APTT 25 SECONDS (21-34) 11/24/15 14:10 Attending/Attestation - Attestation I have personally seen and examined this patient.: Yes I have fully participated in the care of the patient.: Yes I have reviewed all pertinent clinical information, including history, physical exam and plan: Yes Notes (Text): 08/06/17 13:37 Patient was seen and examined at bedside with the resident Continue current medical management We will stop the antibiotics today Patient is completed the course of antibiotics for UTI. I discussed the plan of care with the resident and agree with the assessment and plan documented.
[2017-08-06] MEDS: levETIRAcetam 100 mg/ml (5ml) Oral Syringe PEG SCH ×2 (10:06→18:42)
[2017-08-06] MEDS: Saccharomyces Boulardi 250 mg Cap PEG SCH (10:07)
[2017-08-06] MEDS: Enoxaparin 40 mg Syringe SC SCH (10:08)
[2017-08-07] MEDS: Acetylcysteine 20% Inhal Soln (4ml) INH SCH ×4 (00:13→16:17)
[2017-08-07] MEDS: Albuterol-Ipratrop 3 mg / 0.5 (3 ml) UD INH SCH ×4 (00:14→16:16)
--- NOTE | 2017-08-07 09:57 | CP.PCM.PN ---
<Josue Denson - Last Filed: 08/07/17 13:35> Subjective - Date & Time of Evaluation Date of Evaluation: 08/07/17 Time of Evaluation: 09:56 - Subjective Subjective: PGY1 Note for Dr. Chavis HPI: Patient seen and examined at bedside. ROS unattainable due to anoxic brain injury. Objective - Vital Signs/Intake and Output Vital Signs (last 24 hours): Temp Pulse Resp BP Pulse Ox 98.7 F 80 20 123/81 98 08/07/17 08:06 08/07/17 08:06 08/07/17 08:06 08/07/17 08:06 08/07/17 08:06 Intake and Output: 08/07/17 08/07/17 06:59 18:59 Intake Total 700 600 Output Total 550 Balance 150 600 - Medications Medications: Current Medications Acetylcysteine (Acetylcysteine 20%) 4 ml INH RQ8 [facility] Last Admin: 08/07/17 07:52 Dose: 4 ml Albuterol/Ipratropium (Duoneb 3 Mg/0.5 Mg (3 Ml) Ud) 3 ml INH RQ8 [facility] Last Admin: 08/07/17 07:51 Dose: 3 ml Aspirin (Aspirin Chewable) 81 mg PEG DAILY [facility] Last Admin: 08/06/17 10:08 Dose: 81 mg Bethanechol Chloride (Urecholine) 50 mg PEG TID [facility] Last Admin: 08/06/17 17:39 Dose: 50 mg Carvedilol (Coreg) 3.125 mg PEG BID [facility] Last Admin: 08/06/17 17:39 Dose: 3.125 mg Clopidogrel Bisulfate (Plavix) 75 mg PEG DAILY [facility] Last Admin: 08/06/17 10:07 Dose: 75 mg Emollient Ointment (Vaseline Oint) 5 gm TOP DAILY PRN PRN Reason: Dry skin Last Admin: 07/30/17 09:07 Dose: 5 gm Enoxaparin Sodium (Lovenox) 40 mg SC DAILY [facility] Last Admin: 08/06/17 10:08 Dose: 40 mg Famotidine (Pepcid) 20 mg PEG DAILY [facility] Last Admin: 08/06/17 10:08 Dose: 20 mg Finasteride (Proscar) 5 mg PEG DAILY [facility] Last Admin: 08/06/17 10:08 Dose: 5 mg Fluconazole (Diflucan) 100 mg PEG DAILY [facility] Last Admin: 08/06/17 10:06 Dose: 100 mg Levetiracetam (Keppra) 500 mg PEG BID [facility] Last Admin: 08/06/17 18:42 Dose: 500 mg Saccharomyces Boulardii (Florastor) 250 mg PEG DAILY [facility] Last Admin: 08/06/17 10:07 Dose: 250 mg Scopolamine (Transderm-Scop) 1 patch TD Q3D [facility] Last Admin: 08/06/17 21:34 Dose: 1 patch Tamsulosin HCl (Flomax) 0.4 mg PEG DAILY [facility] Last Admin: 08/06/17 10:08 Dose: 0.4 mg - Labs Labs: 08/03/17 08:20 08/03/17 08:20 PT 10.6 SECONDS (9.7-12.2) 11/24/15 14:10 INR 1.0 11/24/15 14:10 APTT 25 SECONDS (21-34) 11/24/15 14:10 - Constitutional Appears: Chronically Ill - Head Exam Head Exam: ATRAUMATIC, NORMAL INSPECTION, NORMOCEPHALIC - Eye Exam Eye Exam: EOMI - ENT Exam ENT Exam: Mucous Membranes Moist - Neck Exam Additional comments: trach - Respiratory Exam Respiratory Exam: Clear to Ausculation Bilateral, NORMAL BREATHING PATTERN - Cardiovascular Exam Cardiovascular Exam: REGULAR RHYTHM - GI/Abdominal Exam GI & Abdominal Exam: Soft, Normal Bowel Sounds. absent: Distended Additional comments: PEG - Extremities Exam Extremities Exam: absent: Joint Swelling - Skin Skin Exam: Dry, Intact, Normal Color, Warm Assessment and Plan - Assessment and Plan (Free Text) Assessment: 1.) Anoxic encephalopathy s/p cardiac arrest in 05/2015 no acute changes Pt has non spontaneous movements. Continue tube feeds- goal of 60ml/hr, feedings held at night due to fluid overload 2.) Respiratory failure Trach in place, continue daily monitoring for secretions. No change in management at this time. Continue with aggressive suctioning multiple times a day per respiratory therapist. Monitor for signs of respiratory distress Thick secretions Duoneb 3ml INH Q6 and Mucomyst 4ml INH Q6H Robitussin 100mg PEG Q12H Scopolamine 1 patch TD Q3D [facility] Repeat CXR on 05/28/17: linear increased consolidative changes in the right mid- lung zone and left lung base which may represent atelectasis and/or infiltrate. Questionable trace left pleural effusion. moderate venous congestion. cardiomegaly. degenerative changes in the spine and shoulders 3.) Leukocytosis secondary to UTI Resolved 08/03: WBC 8.4 afebrile as of 07/29 Meropenem (started 07/22) - per Dr. Armstrong continue for a total of 2 weeks - Discontinued 08/05/17 ID consult: Dr. Armstrong --> help appreciated 4.) Urinary retention 07/21: NS stopped because tube feeds restarted 07/20: Urine dark in color, monitor, continue NS at 50 ml per hour 07/07/17: Catheter flushed, patient output approx. 500mL within one hour post flush. 06/27/17: Continue bladder massages to aid in voiding. 06/25/17: Patient voids with movement. Continue bladder massages to aid in voiding. 06/23/17: Patient will need to have daily bladder massage to allow for complete voiding 06/17/17: Nursing communication placed in: straight catherization with bladder scan> 100ml 06/08: urinary retention yesterday, was given 40mg lasix iv and patient was able to urinate through condom baker Take note condom cath not always securely in place so Is and Os are approximate as patient does wet bed Ordered- new condom catheter on 05/22/17 Flomax 0.4mg PEG daily Proscar 5mg PEG daily continue Bethanecol 50mg PEG TID- started after persistent retention and found to be effective. monitor I's and O's - I/O: 2100/1700 Check bladder scan for residual urine three times weekly 5.) Hypokalemia K+ on 08/03: 3.5 6.) Sacral ulcer Healed Cont with offloading/cushioning/turning Continue frequent turning, protective ointment and skin checks. 7.) History of coronary artery disease s/p cardiac stents on 06/13/15 Cont ASA 81mg via PEG daily Cont Coreg 3.125mg PEG BID 8.) Seizures Continue Keppra 500mg PEG BID for seizure prophylaxis Monitor for activity 9.) Lower extremity edema Improved SCDs in place Pressure ulcer boots on b/l Continue to monitor 10.) Prophylactic measure Pepcid 20 mg PEG BID Lovenox 40mg SC daily SCDs and offloading boots continue to turn and reposition q2hrs Continue to monitor medication administrations and clinical presentation weekly labs. vasoline ointment applied to feet prn to prevent hyperkeratosis Please hold feeding from 10pm-6am, placed into nursing communication <Amandeep Chavis - Last Filed: 08/07/17 14:37> Objective - Vital Signs/Intake and Output Vital Signs (last 24 hours): Temp Pulse Resp BP Pulse Ox 98.7 F 80 20 123/81 98 08/07/17 08:06 08/07/17 08:06 08/07/17 08:06 08/07/17 08:06 08/07/17 08:06 Intake and Output: 08/07/17 08/07/17 06:59 18:59 Intake Total 700 1300 Output Total 550 0 Balance 150 1300 - Medications Medications: Current Medications Acetylcysteine (Acetylcysteine 20%) 4 ml INH RQ8 [facility] Last Admin: 08/07/17 07:52 Dose: 4 ml Albuterol/Ipratropium (Duoneb 3 Mg/0.5 Mg (3 Ml) Ud) 3 ml INH RQ8 [facility] Last Admin: 08/07/17 07:51 Dose: 3 ml Aspirin (Aspirin Chewable) 81 mg PEG DAILY [facility] Last Admin: 08/07/17 10:00 Dose: 81 mg Bethanechol Chloride (Urecholine) 50 mg PEG TID [facility] Last Admin: 08/07/17 13:12 Dose: 50 mg Carvedilol (Coreg) 3.125 mg PEG BID [facility] Last Admin: 08/07/17 10:01 Dose: 3.125 mg Clopidogrel Bisulfate (Plavix) 75 mg PEG DAILY [facility] Last Admin: 08/07/17 10:00 Dose: 75 mg Emollient Ointment (Vaseline Oint) 5 gm TOP DAILY PRN PRN Reason: Dry skin Last Admin: 07/30/17 09:07 Dose: 5 gm Enoxaparin Sodium (Lovenox) 40 mg SC DAILY [facility] Last Admin: 08/07/17 10:00 Dose: 40 mg Famotidine (Pepcid) 20 mg PEG DAILY [facility] Last Admin: 08/07/17 10:01 Dose: 20 mg Finasteride (Proscar) 5 mg PEG DAILY [facility] Last Admin: 08/07/17 10:00 Dose: 5 mg Fluconazole (Diflucan) 100 mg PEG DAILY [facility] Last Admin: 08/07/17 10:01 Dose: 100 mg Levetiracetam (Keppra) 500 mg PEG BID [facility] Last Admin: 08/07/17 10:00 Dose: 500 mg Saccharomyces Boulardii (Florastor) 250 mg PEG DAILY [facility] Last Admin: 08/07/17 10:02 Dose: 250 mg Scopolamine (Transderm-Scop) 1 patch TD Q3D [facility] Last Admin: 08/06/17 21:34 Dose: 1 patch Tamsulosin HCl (Flomax) 0.4 mg PEG DAILY [facility] Last Admin: 08/07/17 10:00 Dose: 0.4 mg - Labs Labs: 08/03/17 08:20 08/03/17 08:20 PT 10.6 SECONDS (9.7-12.2) 11/24/15 14:10 INR 1.0 11/24/15 14:10 APTT 25 SECONDS (21-34) 11/24/15 14:10 Assessment and Plan (1) Prophylactic measure Status: Acute (2) Anoxic encephalopathy Status: Chronic (3) STEMI (ST elevation myocardial infarction) Status: Acute (4) Cardiac arrest Status: Acute (5) Seizures Status: Acute (6) Respiratory failure Status: Chronic Attending/Attestation - Attestation I have personally seen and examined this patient.: Yes I have fully participated in the care of the patient.: Yes I have reviewed all pertinent clinical information, including history, physical exam and plan: Yes Notes (Text): 08/07/17 14:35 Medical Attending: Patient was seen and examined by me. Agree with the above note by the resident. The patient situation is not changed from before. Amandeep Chavis
[2017-08-07] MEDS: Enoxaparin 40 mg Syringe SC SCH (10:00)
[2017-08-07] MEDS: levETIRAcetam 100 mg/ml (5ml) Oral Syringe PEG SCH ×2 (10:00→18:24)
[2017-08-07] MEDS: Saccharomyces Boulardi 250 mg Cap PEG SCH (10:02)
[2017-08-08] MEDS: Albuterol-Ipratrop 3 mg / 0.5 (3 ml) UD INH SCH ×3 (00:08→16:47)
[2017-08-08] MEDS: Acetylcysteine 20% Inhal Soln (4ml) INH SCH ×3 (00:09→16:48)
--- NOTE | 2017-08-08 05:46 | CP.PCM.PN ---
<Alisia Pappas - Last Filed: 08/08/17 05:44> Subjective - Date & Time of Evaluation Date of Evaluation: 08/08/17 Time of Evaluation: 00:00 - Subjective Subjective: Medicine Progress Note: Patient seen and examined at bedside. ROS unattainable due to anoxic brain injury. Objective - Vital Signs/Intake and Output Vital Signs (last 24 hours): Temp Pulse Resp BP Pulse Ox 98.1 F 86 20 104/71 100 08/08/17 00:00 08/08/17 00:00 08/08/17 00:00 08/08/17 00:00 08/08/17 00:00 Intake and Output: 08/07/17 08/08/17 18:59 06:59 Intake Total 1300 Output Total 0 Balance 1300 - Medications Medications: Current Medications Acetylcysteine (Acetylcysteine 20%) 4 ml INH RQ8 [facility] Last Admin: 08/08/17 00:09 Dose: 4 ml Albuterol/Ipratropium (Duoneb 3 Mg/0.5 Mg (3 Ml) Ud) 3 ml INH RQ8 [facility] Last Admin: 08/08/17 00:08 Dose: 3 ml Aspirin (Aspirin Chewable) 81 mg PEG DAILY [facility] Last Admin: 08/07/17 10:00 Dose: 81 mg Bethanechol Chloride (Urecholine) 50 mg PEG TID [facility] Last Admin: 08/07/17 18:23 Dose: 50 mg Carvedilol (Coreg) 3.125 mg PEG BID [facility] Last Admin: 08/07/17 18:23 Dose: 3.125 mg Clopidogrel Bisulfate (Plavix) 75 mg PEG DAILY [facility] Last Admin: 08/07/17 10:00 Dose: 75 mg Emollient Ointment (Vaseline Oint) 5 gm TOP DAILY PRN PRN Reason: Dry skin Last Admin: 07/30/17 09:07 Dose: 5 gm Enoxaparin Sodium (Lovenox) 40 mg SC DAILY [facility] Last Admin: 08/07/17 10:00 Dose: 40 mg Famotidine (Pepcid) 20 mg PEG DAILY [facility] Last Admin: 08/07/17 10:01 Dose: 20 mg Finasteride (Proscar) 5 mg PEG DAILY [facility] Last Admin: 08/07/17 10:00 Dose: 5 mg Fluconazole (Diflucan) 100 mg PEG DAILY [facility] Last Admin: 08/07/17 10:01 Dose: 100 mg Levetiracetam (Keppra) 500 mg PEG BID [facility] Last Admin: 08/07/17 18:24 Dose: 500 mg Saccharomyces Boulardii (Florastor) 250 mg PEG DAILY [facility] Last Admin: 08/07/17 10:02 Dose: 250 mg Scopolamine (Transderm-Scop) 1 patch TD Q3D [facility] Last Admin: 08/06/17 21:34 Dose: 1 patch Tamsulosin HCl (Flomax) 0.4 mg PEG DAILY [facility] Last Admin: 08/07/17 10:00 Dose: 0.4 mg - Labs Labs: 08/03/17 08:20 08/03/17 08:20 PT 10.6 SECONDS (9.7-12.2) 11/24/15 14:10 INR 1.0 11/24/15 14:10 APTT 25 SECONDS (21-34) 11/24/15 14:10 - Constitutional Appears: Chronically Ill - Head Exam Head Exam: ATRAUMATIC, NORMAL INSPECTION, NORMOCEPHALIC - ENT Exam ENT Exam: Mucous Membranes Moist - Respiratory Exam Respiratory Exam: NORMAL BREATHING PATTERN Additional comments: trach in place - Cardiovascular Exam Cardiovascular Exam: REGULAR RHYTHM - GI/Abdominal Exam GI & Abdominal Exam: Soft, Normal Bowel Sounds - Extremities Exam Extremities Exam: absent: Joint Swelling - Neurological Exam Neurological Exam: absent: Alert, Awake, Oriented x3 - Skin Skin Exam: Normal Color, Warm Assessment and Plan - Assessment and Plan (Free Text) Assessment: 1.) Anoxic encephalopathy s/p cardiac arrest in 05/2015 no acute changes Pt has non spontaneous movements. Continue tube feeds- goal of 60ml/hr, feedings held at night due to fluid overload 2.) Respiratory failure Trach in place, continue daily monitoring for secretions. No change in management at this time. Continue with aggressive suctioning multiple times a day per respiratory therapist. Monitor for signs of respiratory distress Thick secretions Duoneb 3ml INH Q6 and Mucomyst 4ml INH Q6H Robitussin 100mg PEG Q12H Scopolamine 1 patch TD Q3D [facility] Repeat CXR on 05/28/17: linear increased consolidative changes in the right mid- lung zone and left lung base which may represent atelectasis and/or infiltrate. Questionable trace left pleural effusion. moderate venous congestion. cardiomegaly. degenerative changes in the spine and shoulders 3.) Leukocytosis secondary to UTI Resolved 08/03: WBC 8.4 afebrile as of 07/29 Meropenem (started 07/22) - per Dr. Armstrong continue for a total of 2 weeks - Discontinued 08/05/17 ID consult: Dr. Armstrong --> help appreciated 4.) Urinary retention 07/21: NS stopped because tube feeds restarted 07/20: Urine dark in color, monitor, continue NS at 50 ml per hour 07/07/17: Catheter flushed, patient output approx. 500mL within one hour post flush. 06/27/17: Continue bladder massages to aid in voiding. 06/25/17: Patient voids with movement. Continue bladder massages to aid in voiding. 06/23/17: Patient will need to have daily bladder massage to allow for complete voiding 06/17/17: Nursing communication placed in: straight catherization with bladder scan> 100ml 06/08: urinary retention yesterday, was given 40mg lasix iv and patient was able to urinate through condom baker Take note condom cath not always securely in place so Is and Os are approximate as patient does wet bed Ordered- new condom catheter on 05/22/17 Flomax 0.4mg PEG daily Proscar 5mg PEG daily continue Bethanecol 50mg PEG TID- started after persistent retention and found to be effective. monitor I's and O's - I/O: 1300 Check bladder scan for residual urine three times weekly 5.) Hypokalemia K+ on 08/03: 3.5 6.) Sacral ulcer Healed Cont with offloading/cushioning/turning Continue frequent turning, protective ointment and skin checks. 7.) History of coronary artery disease s/p cardiac stents on 06/13/15 Cont ASA 81mg via PEG daily Cont Coreg 3.125mg PEG BID 8.) Seizures Continue Keppra 500mg PEG BID for seizure prophylaxis Monitor for activity 9.) Lower extremity edema Improved SCDs in place Pressure ulcer boots on b/l Continue to monitor 10.) Prophylactic measure Pepcid 20 mg PEG BID Lovenox 40mg SC daily SCDs and offloading boots continue to turn and reposition q2hrs Continue to monitor medication administrations and clinical presentation weekly labs. vasoline ointment applied to feet prn to prevent hyperkeratosis Please hold feeding from 10pm-6am, placed into nursing communication <Amandeep Chavis H - Last Filed: 08/08/17 14:08> Objective - Vital Signs/Intake and Output Vital Signs (last 24 hours): Temp Pulse Resp BP Pulse Ox 98.5 F 86 20 105/72 98 08/08/17 08:23 08/08/17 08:23 08/08/17 08:23 08/08/17 08:23 08/08/17 08:23 Intake and Output: 08/08/17 08/08/17 06:59 18:59 Intake Total 700 Output Total 50 Balance 650 - Medications Medications: Current Medications Acetylcysteine (Acetylcysteine 20%) 4 ml INH RQ8 [facility] Last Admin: 08/08/17 08:46 Dose: 4 ml Albuterol/Ipratropium (Duoneb 3 Mg/0.5 Mg (3 Ml) Ud) 3 ml INH RQ8 [facility] Last Admin: 08/08/17 08:46 Dose: 3 ml Aspirin (Aspirin Chewable) 81 mg PEG DAILY [facility] Last Admin: 08/08/17 10:46 Dose: 81 mg Bethanechol Chloride (Urecholine) 50 mg PEG TID [facility] Last Admin: 08/08/17 10:45 Dose: 50 mg Carvedilol (Coreg) 3.125 mg PEG BID [facility] Last Admin: 08/08/17 10:46 Dose: 3.125 mg Clopidogrel Bisulfate (Plavix) 75 mg PEG DAILY [facility] Last Admin: 08/08/17 10:46 Dose: 75 mg Emollient Ointment (Vaseline Oint) 5 gm TOP DAILY PRN PRN Reason: Dry skin Last Admin: 08/08/17 10:46 Dose: 5 gm Enoxaparin Sodium (Lovenox) 40 mg SC DAILY [facility] Last Admin: 08/08/17 10:45 Dose: 40 mg Famotidine (Pepcid) 20 mg PEG DAILY [facility] Last Admin: 08/08/17 10:45 Dose: 20 mg Finasteride (Proscar) 5 mg PEG DAILY [facility] Last Admin: 08/08/17 10:46 Dose: 5 mg Fluconazole (Diflucan) 100 mg PEG DAILY [facility] Last Admin: 08/08/17 10:46 Dose: 100 mg Levetiracetam (Keppra) 500 mg PEG BID [facility] Last Admin: 08/08/17 10:45 Dose: 500 mg Saccharomyces Boulardii (Florastor) 250 mg PEG DAILY [facility] Last Admin: 08/08/17 10:46 Dose: 250 mg Scopolamine (Transderm-Scop) 1 patch TD Q3D [facility] Last Admin: 08/06/17 21:34 Dose: 1 patch Tamsulosin HCl (Flomax) 0.4 mg PEG DAILY [facility] Last Admin: 08/08/17 10:45 Dose: 0.4 mg - Labs Labs: 08/03/17 08:20 08/03/17 08:20 PT 10.6 SECONDS (9.7-12.2) 11/24/15 14:10 INR 1.0 11/24/15 14:10 APTT 25 SECONDS (21-34) 11/24/15 14:10 Assessment and Plan (1) Prophylactic measure Status: Acute (2) Anoxic encephalopathy Status: Chronic (3) STEMI (ST elevation myocardial infarction) Status: Acute (4) Cardiac arrest Status: Acute (5) Seizures Status: Acute (6) Respiratory failure Status: Chronic Attending/Attestation - Attestation I have personally seen and examined this patient.: Yes I have fully participated in the care of the patient.: Yes I have reviewed all pertinent clinical information, including history, physical exam and plan: Yes Notes (Text): 08/08/17 14:07 Medical attending: Patient was seen and examined by me. Agree with the above by the resident. Situation is unchanged from before. Amandeep Chavis
[2017-08-08 06:51] LABS: SQUAMOUS EPITHIAL < 1 /hpf (0-5); URINE BILIRUBIN NEGATIVE (NEGATIVE); URINE BLOOD NEGATIVE (NEGATIVE); URINE CLARITY Hazy (Clear); URINE COLOR Yellow (YELLOW); URINE GLUCOSE (UA) NORMAL (Normal); URINE HYALINE CAST 0-2 /lpf (0-2); URINE LEUKOCYTE ESTERASE NEG Leu/uL (Negative); URINE PROTEIN NEGATIVE (NEGATIVE); URINE UROBILINOGEN NORMAL mg/dL (0.2-1.0)
[2017-08-08] MEDS: Enoxaparin 40 mg Syringe SC SCH (10:45)
[2017-08-08] MEDS: levETIRAcetam 100 mg/ml (5ml) Oral Syringe PEG SCH ×2 (10:45→17:16)
[2017-08-08] MEDS: Petrolatum Oint Foilpak (5 gm) TOP PRN (10:46)
[2017-08-08] MEDS: Saccharomyces Boulardi 250 mg Cap PEG SCH (10:46)
--- NOTE | 2017-08-09 00:03 | CP.PCM.PN ---
<Alisia Pappas - Last Filed: 08/09/17 00:01> Subjective - Date & Time of Evaluation Date of Evaluation: 08/09/17 Time of Evaluation: 00:00 - Subjective Subjective: Medicine Progress Note: Patient seen and examined at bedside. ROS unattainable due to anoxic brain injury. Objective - Vital Signs/Intake and Output Vital Signs (last 24 hours): Temp Pulse Resp BP Pulse Ox 98 F 81 20 108/72 98 08/08/17 23:37 08/08/17 23:37 08/08/17 23:37 08/08/17 23:37 08/08/17 23:37 Intake and Output: 08/08/17 08/09/17 18:59 06:59 Intake Total 700 780 Output Total 400 2 Balance 300 778 - Medications Medications: Current Medications Acetylcysteine (Acetylcysteine 20%) 4 ml INH RQ8 [facility] Last Admin: 08/08/17 16:48 Dose: 4 ml Albuterol/Ipratropium (Duoneb 3 Mg/0.5 Mg (3 Ml) Ud) 3 ml INH RQ8 [facility] Last Admin: 08/08/17 16:47 Dose: 3 ml Aspirin (Aspirin Chewable) 81 mg PEG DAILY [facility] Last Admin: 08/08/17 10:46 Dose: 81 mg Bethanechol Chloride (Urecholine) 50 mg PEG TID [facility] Last Admin: 08/08/17 17:16 Dose: 50 mg Carvedilol (Coreg) 3.125 mg PEG BID [facility] Last Admin: 08/08/17 17:16 Dose: 3.125 mg Clopidogrel Bisulfate (Plavix) 75 mg PEG DAILY [facility] Last Admin: 08/08/17 10:46 Dose: 75 mg Emollient Ointment (Vaseline Oint) 5 gm TOP DAILY PRN PRN Reason: Dry skin Last Admin: 08/08/17 10:46 Dose: 5 gm Enoxaparin Sodium (Lovenox) 40 mg SC DAILY [facility] Last Admin: 08/08/17 10:45 Dose: 40 mg Famotidine (Pepcid) 20 mg PEG DAILY [facility] Last Admin: 08/08/17 10:45 Dose: 20 mg Finasteride (Proscar) 5 mg PEG DAILY [facility] Last Admin: 08/08/17 10:46 Dose: 5 mg Fluconazole (Diflucan) 100 mg PEG DAILY [facility] Last Admin: 08/08/17 10:46 Dose: 100 mg Levetiracetam (Keppra) 500 mg PEG BID [facility] Last Admin: 08/08/17 17:16 Dose: 500 mg Saccharomyces Boulardii (Florastor) 250 mg PEG DAILY [facility] Last Admin: 08/08/17 10:46 Dose: 250 mg Scopolamine (Transderm-Scop) 1 patch TD Q3D [facility] Last Admin: 08/06/17 21:34 Dose: 1 patch Tamsulosin HCl (Flomax) 0.4 mg PEG DAILY [facility] Last Admin: 08/08/17 10:45 Dose: 0.4 mg - Labs Labs: 08/03/17 08:20 08/03/17 08:20 PT 10.6 SECONDS (9.7-12.2) 11/24/15 14:10 INR 1.0 11/24/15 14:10 APTT 25 SECONDS (21-34) 11/24/15 14:10 - Constitutional Appears: Chronically Ill - Head Exam Head Exam: ATRAUMATIC, NORMAL INSPECTION, NORMOCEPHALIC - ENT Exam ENT Exam: Mucous Membranes Moist - Respiratory Exam Respiratory Exam: NORMAL BREATHING PATTERN Additional comments: trach in place - Cardiovascular Exam Cardiovascular Exam: REGULAR RHYTHM - GI/Abdominal Exam GI & Abdominal Exam: Soft, Normal Bowel Sounds - Neurological Exam Neurological Exam: absent: Alert, Awake, Oriented x3 - Skin Skin Exam: Normal Color, Warm Assessment and Plan - Assessment and Plan (Free Text) Assessment: 1.) Anoxic encephalopathy s/p cardiac arrest in 05/2015 no acute changes Pt has non spontaneous movements. Continue tube feeds- goal of 60ml/hr, feedings held at night due to fluid overload 2.) Respiratory failure Trach in place, continue daily monitoring for secretions. No change in management at this time. Continue with aggressive suctioning multiple times a day per respiratory therapist. Monitor for signs of respiratory distress Thick secretions Duoneb 3ml INH Q6 and Mucomyst 4ml INH Q6H Robitussin 100mg PEG Q12H Scopolamine 1 patch TD Q3D [facility] Repeat CXR on 05/28/17: linear increased consolidative changes in the right mid- lung zone and left lung base which may represent atelectasis and/or infiltrate. Questionable trace left pleural effusion. moderate venous congestion. cardiomegaly. degenerative changes in the spine and shoulders 3.) Leukocytosis secondary to UTI Resolved 08/03: WBC 8.4 afebrile as of 07/29 Meropenem (started 07/22) - per Dr. Armstrong continue for a total of 2 weeks - Discontinued 08/05/17 ID consult: Dr. Armstrong --> help appreciated 4.) Urinary retention 07/21: NS stopped because tube feeds restarted 07/20: Urine dark in color, monitor, continue NS at 50 ml per hour 07/07/17: Catheter flushed, patient output approx. 500mL within one hour post flush. 06/27/17: Continue bladder massages to aid in voiding. 06/25/17: Patient voids with movement. Continue bladder massages to aid in voiding. 06/23/17: Patient will need to have daily bladder massage to allow for complete voiding 06/17/17: Nursing communication placed in: straight catherization with bladder scan> 100ml 06/08: urinary retention yesterday, was given 40mg lasix iv and patient was able to urinate through condom baker Take note condom cath not always securely in place so Is and Os are approximate as patient does wet bed Ordered- new condom catheter on 05/22/17 Flomax 0.4mg PEG daily Proscar 5mg PEG daily continue Bethanecol 50mg PEG TID- started after persistent retention and found to be effective. monitor I's and O's - I/O: 1300 Check bladder scan for residual urine three times weekly 5.) Hypokalemia K+ on 08/03: 3.5 6.) Sacral ulcer Healed Cont with offloading/cushioning/turning Continue frequent turning, protective ointment and skin checks. 7.) History of coronary artery disease s/p cardiac stents on 06/13/15 Cont ASA 81mg via PEG daily Cont Coreg 3.125mg PEG BID 8.) Seizures Continue Keppra 500mg PEG BID for seizure prophylaxis Monitor for activity 9.) Lower extremity edema Improved SCDs in place Pressure ulcer boots on b/l Continue to monitor 10.) Prophylactic measure Pepcid 20 mg PEG BID Lovenox 40mg SC daily SCDs and offloading boots continue to turn and reposition q2hrs Continue to monitor medication administrations and clinical presentation weekly labs. vasoline ointment applied to feet prn to prevent hyperkeratosis Please hold feeding from 10pm-6am, placed into nursing communication <Donavan Hallman - Last Filed: 08/17/17 11:04> Objective - Vital Signs/Intake and Output Vital Signs (last 24 hours): Temp Pulse Resp BP Pulse Ox 98.2 F 71 20 112/75 100 08/17/17 00:00 08/17/17 00:00 08/17/17 00:00 08/17/17 00:00 08/17/17 00:00 Intake and Output: 08/17/17 08/17/17 06:59 18:59 Intake Total 1560 Output Total 800 Balance 760 - Medications Medications: Current Medications Acetylcysteine (Acetylcysteine 20%) 4 ml INH RQ8 [facility] Last Admin: 08/17/17 08:40 Dose: 4 ml Albuterol/Ipratropium (Duoneb 3 Mg/0.5 Mg (3 Ml) Ud) 3 ml INH RQ8 [facility] Last Admin: 08/17/17 08:40 Dose: 3 ml Aspirin (Aspirin Chewable) 81 mg PEG DAILY [facility] Last Admin: 08/17/17 09:27 Dose: 81 mg Bethanechol Chloride (Urecholine) 50 mg PEG TID [facility] Last Admin: 08/17/17 09:28 Dose: 50 mg Carvedilol (Coreg) 3.125 mg PEG BID [facility] Last Admin: 08/17/17 09:28 Dose: 3.125 mg Clopidogrel Bisulfate (Plavix) 75 mg PEG DAILY [facility] Last Admin: 08/17/17 09:28 Dose: 75 mg Emollient Ointment (Vaseline Oint) 5 gm TOP DAILY PRN PRN Reason: Dry skin Last Admin: 08/14/17 17:18 Dose: 5 gm Famotidine (Pepcid) 20 mg PEG DAILY [facility] Last Admin: 08/17/17 09:28 Dose: 20 mg Finasteride (Proscar) 5 mg PEG DAILY [facility] Last Admin: 08/17/17 09:28 Dose: 5 mg Levetiracetam (Keppra) 500 mg PEG BID [facility] Last Admin: 08/16/17 17:48 Dose: 500 mg Saccharomyces Boulardii (Florastor) 250 mg PEG DAILY [facility] Last Admin: 08/17/17 09:27 Dose: 250 mg Scopolamine (Transderm-Scop) 1 patch TD Q3D [facility] Last Admin: 08/15/17 21:39 Dose: 1 patch Tamsulosin HCl (Flomax) 0.4 mg PEG DAILY [facility] Last Admin: 08/17/17 09:28 Dose: 0.4 mg Vitamin A (Vitamin A & D Oint Ud Foilpak) 1 ea TOP BID [facility] Last Admin: 08/17/17 09:27 Dose: 1 ea - Labs Labs: 08/17/17 06:24 08/17/17 06:24 PT 10.6 SECONDS (9.7-12.2) 11/24/15 14:10 INR 1.0 11/24/15 14:10 APTT 25 SECONDS (21-34) 11/24/15 14:10 Attending/Attestation - Attestation I have personally seen and examined this patient.: Yes I have fully participated in the care of the patient.: Yes I have reviewed all pertinent clinical information, including history, physical exam and plan: Yes Notes (Text): Anoxic encephalopathy Respiratory failure now resolved on trach collar Leukocytosis secondary to UTI
[2017-08-09] MEDS: Albuterol-Ipratrop 3 mg / 0.5 (3 ml) UD INH SCH ×3 (00:35→15:43)
[2017-08-09] MEDS: Acetylcysteine 20% Inhal Soln (4ml) INH SCH ×3 (00:35→15:43)
[2017-08-09] MEDS: Enoxaparin 40 mg Syringe SC SCH (10:44)
[2017-08-09] MEDS: levETIRAcetam 100 mg/ml (5ml) Oral Syringe PEG SCH ×2 (10:44→17:47)
[2017-08-09] MEDS: Petrolatum Oint Foilpak (5 gm) TOP PRN ×2 (10:45→17:47)
[2017-08-09] MEDS: Saccharomyces Boulardi 250 mg Cap PEG SCH (10:46)
[2017-08-10] MEDS: Albuterol-Ipratrop 3 mg / 0.5 (3 ml) UD INH SCH ×4 (00:27→23:54)
[2017-08-10] MEDS: Acetylcysteine 20% Inhal Soln (4ml) INH SCH ×4 (00:28→23:54)
--- NOTE | 2017-08-10 07:37 | CP.PCM.PN ---
<Alisia Pappas - Last Filed: 08/10/17 18:38> Subjective - Date & Time of Evaluation Date of Evaluation: 08/10/17 Time of Evaluation: 07:00 - Subjective Subjective: Medicine Progress Note: Patient seen and examined at bedside. ROS unattainable due to anoxic brain injury. Objective - Vital Signs/Intake and Output Vital Signs (last 24 hours): Temp Pulse Resp BP Pulse Ox 98.3 F 82 20 128/83 100 08/10/17 00:00 08/10/17 00:00 08/10/17 00:00 08/10/17 00:00 08/10/17 00:00 Intake and Output: 08/10/17 08/10/17 06:59 18:59 Intake Total 1560 Output Total 700 Balance 860 - Medications Medications: Current Medications Acetylcysteine (Acetylcysteine 20%) 4 ml INH RQ8 [facility] Last Admin: 08/10/17 00:28 Dose: Not Given Albuterol/Ipratropium (Duoneb 3 Mg/0.5 Mg (3 Ml) Ud) 3 ml INH RQ8 [facility] Last Admin: 08/10/17 00:27 Dose: 3 ml Aspirin (Aspirin Chewable) 81 mg PEG DAILY [facility] Last Admin: 08/09/17 10:45 Dose: 81 mg Bethanechol Chloride (Urecholine) 50 mg PEG TID [facility] Last Admin: 08/09/17 17:47 Dose: 50 mg Carvedilol (Coreg) 3.125 mg PEG BID [facility] Last Admin: 08/09/17 17:47 Dose: 3.125 mg Clopidogrel Bisulfate (Plavix) 75 mg PEG DAILY [facility] Last Admin: 08/09/17 10:45 Dose: 75 mg Emollient Ointment (Vaseline Oint) 5 gm TOP DAILY PRN PRN Reason: Dry skin Last Admin: 08/09/17 17:47 Dose: 5 gm Enoxaparin Sodium (Lovenox) 40 mg SC DAILY [facility] Last Admin: 08/09/17 10:44 Dose: 40 mg Famotidine (Pepcid) 20 mg PEG DAILY [facility] Last Admin: 08/09/17 10:45 Dose: 20 mg Finasteride (Proscar) 5 mg PEG DAILY [facility] Last Admin: 08/09/17 10:45 Dose: 5 mg Fluconazole (Diflucan) 100 mg PEG DAILY [facility] Last Admin: 08/09/17 10:45 Dose: 100 mg Levetiracetam (Keppra) 500 mg PEG BID [facility] Last Admin: 08/09/17 17:47 Dose: 500 mg Saccharomyces Boulardii (Florastor) 250 mg PEG DAILY [facility] Last Admin: 08/09/17 10:46 Dose: 250 mg Scopolamine (Transderm-Scop) 1 patch TD Q3D [facility] Last Admin: 08/09/17 21:21 Dose: 1 patch Tamsulosin HCl (Flomax) 0.4 mg PEG DAILY [facility] Last Admin: 08/09/17 10:45 Dose: 0.4 mg - Labs Labs: 08/03/17 08:20 08/03/17 08:20 PT 10.6 SECONDS (9.7-12.2) 11/24/15 14:10 INR 1.0 11/24/15 14:10 APTT 25 SECONDS (21-34) 11/24/15 14:10 - Constitutional Appears: Chronically Ill - Head Exam Head Exam: ATRAUMATIC, NORMAL INSPECTION, NORMOCEPHALIC - ENT Exam ENT Exam: Mucous Membranes Moist - Respiratory Exam Respiratory Exam: NORMAL BREATHING PATTERN Additional comments: trach in place - Cardiovascular Exam Cardiovascular Exam: REGULAR RHYTHM - GI/Abdominal Exam GI & Abdominal Exam: Soft, Normal Bowel Sounds - Neurological Exam Neurological Exam: absent: Alert, Awake, Oriented x3 - Skin Skin Exam: Normal Color, Warm Assessment and Plan - Assessment and Plan (Free Text) Assessment: 1.) Anoxic encephalopathy s/p cardiac arrest in 05/2015 no acute changes Pt has non spontaneous movements. Continue tube feeds- goal of 60ml/hr, feedings held at night due to fluid overload 2.) Respiratory failure Trach in place, continue daily monitoring for secretions. No change in management at this time. Continue with aggressive suctioning multiple times a day per respiratory therapist. Monitor for signs of respiratory distress Thick secretions Duoneb 3ml INH Q6 and Mucomyst 4ml INH Q6H Robitussin 100mg PEG Q12H Scopolamine 1 patch TD Q3D [facility] Repeat CXR on 05/28/17: linear increased consolidative changes in the right mid- lung zone and left lung base which may represent atelectasis and/or infiltrate. Questionable trace left pleural effusion. moderate venous congestion. cardiomegaly. degenerative changes in the spine and shoulders 3.) Leukocytosis secondary to UTI Resolved 08/03: WBC 8.4 afebrile as of 07/29 Meropenem (started 07/22) - per Dr. Armstrong continue for a total of 2 weeks - Discontinued 08/05/17 ID consult: Dr. Armstrong --> help appreciated 4.) Urinary retention 07/21: NS stopped because tube feeds restarted 07/20: Urine dark in color, monitor, continue NS at 50 ml per hour 07/07/17: Catheter flushed, patient output approx. 500mL within one hour post flush. 06/27/17: Continue bladder massages to aid in voiding. 06/25/17: Patient voids with movement. Continue bladder massages to aid in voiding. 06/23/17: Patient will need to have daily bladder massage to allow for complete voiding 06/17/17: Nursing communication placed in: straight catherization with bladder scan> 100ml 06/08: urinary retention yesterday, was given 40mg lasix iv and patient was able to urinate through condom baker Take note condom cath not always securely in place so Is and Os are approximate as patient does wet bed Ordered- new condom catheter on 05/22/17 Flomax 0.4mg PEG daily Proscar 5mg PEG daily continue Bethanecol 50mg PEG TID- started after persistent retention and found to be effective. monitor I's and O's - I/O: 2940/1150 Check bladder scan for residual urine three times weekly 5.) Hypokalemia K+ on 08/03: 3.5 6.) Sacral ulcer Healed Cont with offloading/cushioning/turning Continue frequent turning, protective ointment and skin checks. 7.) History of coronary artery disease s/p cardiac stents on 06/13/15 Cont ASA 81mg via PEG daily Cont Coreg 3.125mg PEG BID 8.) Seizures Continue Keppra 500mg PEG BID for seizure prophylaxis Monitor for activity 9.) Lower extremity edema Improved SCDs in place Pressure ulcer boots on b/l Continue to monitor 10.) Prophylactic measure Pepcid 20 mg PEG BID Lovenox 40mg SC daily SCDs and offloading boots continue to turn and reposition q2hrs Continue to monitor medication administrations and clinical presentation weekly labs. vasoline ointment applied to feet prn to prevent hyperkeratosis Please hold feeding from 10pm-6am, placed into nursing communication <Amandeep Chavis H - Last Filed: 08/10/17 18:43> Objective - Vital Signs/Intake and Output Vital Signs (last 24 hours): Temp Pulse Resp BP Pulse Ox 97.7 F 82 20 125/69 99 08/10/17 16:00 08/10/17 16:00 08/10/17 16:00 08/10/17 16:00 08/10/17 16:00 Intake and Output: 08/10/17 08/10/17 06:59 18:59 Intake Total 1560 780 Output Total 700 100 Balance 860 680 - Medications Medications: Current Medications Acetylcysteine (Acetylcysteine 20%) 4 ml INH RQ8 [facility] Last Admin: 08/10/17 07:56 Dose: 4 ml Albuterol/Ipratropium (Duoneb 3 Mg/0.5 Mg (3 Ml) Ud) 3 ml INH RQ8 [facility] Last Admin: 08/10/17 07:56 Dose: 3 ml Aspirin (Aspirin Chewable) 81 mg PEG DAILY [facility] Last Admin: 08/10/17 10:37 Dose: 81 mg Bethanechol Chloride (Urecholine) 50 mg PEG TID [facility] Last Admin: 08/10/17 17:26 Dose: 50 mg Carvedilol (Coreg) 3.125 mg PEG BID [facility] Last Admin: 08/10/17 17:25 Dose: 3.125 mg Clopidogrel Bisulfate (Plavix) 75 mg PEG DAILY [facility] Last Admin: 08/10/17 10:37 Dose: 75 mg Emollient Ointment (Vaseline Oint) 5 gm TOP DAILY PRN PRN Reason: Dry skin Last Admin: 08/09/17 17:47 Dose: 5 gm Enoxaparin Sodium (Lovenox) 40 mg SC DAILY [facility] Last Admin: 08/10/17 10:37 Dose: 40 mg Famotidine (Pepcid) 20 mg PEG DAILY [facility] Last Admin: 08/10/17 10:37 Dose: 20 mg Finasteride (Proscar) 5 mg PEG DAILY [facility] Last Admin: 08/10/17 10:38 Dose: 5 mg Fluconazole (Diflucan) 100 mg PEG DAILY [facility] Last Admin: 08/10/17 10:37 Dose: 100 mg Levetiracetam (Keppra) 500 mg PEG BID [facility] Last Admin: 08/10/17 18:00 Dose: 500 mg Saccharomyces Boulardii (Florastor) 250 mg PEG DAILY [facility] Last Admin: 08/10/17 10:37 Dose: 250 mg Scopolamine (Transderm-Scop) 1 patch TD Q3D [facility] Last Admin: 08/09/17 21:21 Dose: 1 patch Tamsulosin HCl (Flomax) 0.4 mg PEG DAILY [facility] Last Admin: 08/10/17 10:38 Dose: 0.4 mg - Labs Labs: 08/10/17 09:01 08/10/17 09:01 PT 10.6 SECONDS (9.7-12.2) 11/24/15 14:10 INR 1.0 11/24/15 14:10 APTT 25 SECONDS (21-34) 11/24/15 14:10 Assessment and Plan (1) Prophylactic measure Status: Acute (2) Anoxic encephalopathy Status: Chronic (3) STEMI (ST elevation myocardial infarction) Status: Acute (4) Cardiac arrest Status: Acute (5) Seizures Status: Acute (6) Respiratory failure Status: Chronic Attending/Attestation - Attestation I have personally seen and examined this patient.: Yes I have fully participated in the care of the patient.: Yes I have reviewed all pertinent clinical information, including history, physical exam and plan: Yes
[2017-08-10 09:19] LABS: BASO # 0.1 K/uL (0.0-0.2); BASO % 0.9 % (0.0-2.0); EOS # 0.6 K/uL (0.0-0.7); EOS % 7.6 % (0.0-4.0); HEMOGLOBIN 10.8 g/dL (12.0-18.0); LYMPH # 2.6 K/uL (1.0-4.3); LYMPH % 32.3 % (20.0-40.0); MEAN CELL VOLUME 89.4 fL (80.0-94.0); MEAN CORPUSCULAR HGB CONC 32.4 g/dL (33.0-37.0); MEAN PLATELET VOLUME 9.2 fL (7.2-11.7); MONO # 0.8 K/uL (0.0-0.8); MONO % 9.7 % (0.0-10.0); NEUT % 49.5 % (50.0-75.0); NRBC % 0.1 % (0.0-2.0); RBC 3.71 Mil/uL (4.40-5.90); WHITE BLOOD COUNT 8.2 K/uL (4.8-10.8)
[2017-08-10 09:43] LABS: ALB/GLOB RATIO 0.7 (1.0-2.1); ALBUMIN 3.4 g/dL (3.5-5.0); ALT/SGPT 32 U/L (21-72); AST/SGOT 20 U/L (17-59); BLOOD UREA NITROGEN 16 mg/dL (9-20); CALCIUM 8.8 mg/dl (8.6-10.4); GFR NON-AFRICAN AMERICAN > 60
[2017-08-10] MEDS: Saccharomyces Boulardi 250 mg Cap PEG SCH (10:37)
[2017-08-10] MEDS: Enoxaparin 40 mg Syringe SC SCH (10:37)
[2017-08-10] MEDS: levETIRAcetam 100 mg/ml (5ml) Oral Syringe PEG SCH ×2 (10:38→18:00)
[2017-08-11] MEDS: Acetylcysteine 20% Inhal Soln (4ml) INH SCH ×3 (07:15→23:52)
[2017-08-11] MEDS: Albuterol-Ipratrop 3 mg / 0.5 (3 ml) UD INH SCH ×3 (07:15→23:52)
--- NOTE | 2017-08-11 09:35 | CP.PCM.PN ---
<Alisia Pappas - Last Filed: 08/11/17 14:35> Subjective - Date & Time of Evaluation Date of Evaluation: 08/11/17 Time of Evaluation: 07:00 - Subjective Subjective: Medicine Progress Note: Patient seen and examined at bedside. ROS unattainable due to anoxic brain injury. Objective - Vital Signs/Intake and Output Vital Signs (last 24 hours): Temp Pulse Resp BP Pulse Ox 98.4 F 75 20 135/80 98 08/10/17 23:31 08/10/17 23:31 08/10/17 23:31 08/10/17 23:31 08/10/17 23:31 Intake and Output: 08/11/17 08/11/17 06:59 18:59 Intake Total 1560 Output Total 1552 Balance 8 - Medications Medications: Current Medications Acetylcysteine (Acetylcysteine 20%) 4 ml INH RQ8 [facility] Last Admin: 08/11/17 07:15 Dose: 4 ml Albuterol/Ipratropium (Duoneb 3 Mg/0.5 Mg (3 Ml) Ud) 3 ml INH RQ8 [facility] Last Admin: 08/11/17 07:15 Dose: 3 ml Aspirin (Aspirin Chewable) 81 mg PEG DAILY [facility] Last Admin: 08/10/17 10:37 Dose: 81 mg Bethanechol Chloride (Urecholine) 50 mg PEG TID [facility] Last Admin: 08/10/17 17:26 Dose: 50 mg Carvedilol (Coreg) 3.125 mg PEG BID [facility] Last Admin: 08/10/17 17:25 Dose: 3.125 mg Clopidogrel Bisulfate (Plavix) 75 mg PEG DAILY [facility] Last Admin: 08/10/17 10:37 Dose: 75 mg Emollient Ointment (Vaseline Oint) 5 gm TOP DAILY PRN PRN Reason: Dry skin Last Admin: 08/09/17 17:47 Dose: 5 gm Enoxaparin Sodium (Lovenox) 40 mg SC DAILY [facility] Last Admin: 08/10/17 10:37 Dose: 40 mg Famotidine (Pepcid) 20 mg PEG DAILY [facility] Last Admin: 08/10/17 10:37 Dose: 20 mg Finasteride (Proscar) 5 mg PEG DAILY [facility] Last Admin: 08/10/17 10:38 Dose: 5 mg Fluconazole (Diflucan) 100 mg PEG DAILY [facility] Last Admin: 08/10/17 10:37 Dose: 100 mg Levetiracetam (Keppra) 500 mg PEG BID [facility] Last Admin: 08/10/17 18:00 Dose: 500 mg Saccharomyces Boulardii (Florastor) 250 mg PEG DAILY [facility] Last Admin: 08/10/17 10:37 Dose: 250 mg Scopolamine (Transderm-Scop) 1 patch TD Q3D [facility] Last Admin: 08/09/17 21:21 Dose: 1 patch Tamsulosin HCl (Flomax) 0.4 mg PEG DAILY [facility] Last Admin: 08/10/17 10:38 Dose: 0.4 mg - Labs Labs: 08/10/17 09:01 08/10/17 09:01 PT 10.6 SECONDS (9.7-12.2) 11/24/15 14:10 INR 1.0 11/24/15 14:10 APTT 25 SECONDS (21-34) 11/24/15 14:10 - Constitutional Appears: Chronically Ill - Head Exam Head Exam: ATRAUMATIC, NORMAL INSPECTION, NORMOCEPHALIC - Eye Exam Eye Exam: Normal appearance - Respiratory Exam Respiratory Exam: NORMAL BREATHING PATTERN Additional comments: Trach in place - Cardiovascular Exam Cardiovascular Exam: REGULAR RHYTHM - GI/Abdominal Exam GI & Abdominal Exam: Soft, Normal Bowel Sounds - Neurological Exam Neurological Exam: absent: Alert, Awake, Oriented x3 - Skin Skin Exam: Normal Color, Warm Assessment and Plan - Assessment and Plan (Free Text) Assessment: 1.) Anoxic encephalopathy s/p cardiac arrest in 05/2015 no acute changes Pt has non spontaneous movements. Continue tube feeds- goal of 60ml/hr, feedings held at night due to fluid overload 2.) Respiratory failure Trach in place, continue daily monitoring for secretions. No change in management at this time. Continue with aggressive suctioning multiple times a day per respiratory therapist. Monitor for signs of respiratory distress Thick secretions Duoneb 3ml INH Q6 and Mucomyst 4ml INH Q6H Robitussin 100mg PEG Q12H Scopolamine 1 patch TD Q3D [facility] Repeat CXR on 05/28/17: linear increased consolidative changes in the right mid- lung zone and left lung base which may represent atelectasis and/or infiltrate. Questionable trace left pleural effusion. moderate venous congestion. cardiomegaly. degenerative changes in the spine and shoulders 3.) Leukocytosis secondary to UTI Resolved 08/03: WBC 8.4 afebrile as of 07/29 Meropenem (started 07/22) - per Dr. Armstrong continue for a total of 2 weeks - Discontinued 08/05/17 ID consult: Dr. Armstrong --> help appreciated 4.) Urinary retention 07/21: NS stopped because tube feeds restarted 07/20: Urine dark in color, monitor, continue NS at 50 ml per hour 07/07/17: Catheter flushed, patient output approx. 500mL within one hour post flush. 06/27/17: Continue bladder massages to aid in voiding. 06/25/17: Patient voids with movement. Continue bladder massages to aid in voiding. 06/23/17: Patient will need to have daily bladder massage to allow for complete voiding 06/17/17: Nursing communication placed in: straight catherization with bladder scan> 100ml 06/08: urinary retention yesterday, was given 40mg lasix iv and patient was able to urinate through condom baker Take note condom cath not always securely in place so Is and Os are approximate as patient does wet bed Ordered- new condom catheter on 05/22/17 Flomax 0.4mg PEG daily Proscar 5mg PEG daily continue Bethanecol 50mg PEG TID- started after persistent retention and found to be effective. monitor I's and O's - I/O: 2340/1652 Check bladder scan for residual urine three times weekly 5.) Hypokalemia K+ on 08/03: 3.5 6.) Sacral ulcer Healed Cont with offloading/cushioning/turning Continue frequent turning, protective ointment and skin checks. 7.) History of coronary artery disease s/p cardiac stents on 06/13/15 Cont ASA 81mg via PEG daily Cont Coreg 3.125mg PEG BID 8.) Seizures Continue Keppra 500mg PEG BID for seizure prophylaxis Monitor for activity 9.) Lower extremity edema Improved SCDs in place Pressure ulcer boots on b/l Continue to monitor 10.) Prophylactic measure Pepcid 20 mg PEG BID Lovenox 40mg SC daily SCDs and offloading boots continue to turn and reposition q2hrs Continue to monitor medication administrations and clinical presentation weekly labs. vasoline ointment applied to feet prn to prevent hyperkeratosis Please hold feeding from 10pm-6am, placed into nursing communication <Amandeep Chavis H - Last Filed: 08/11/17 14:46> Objective - Vital Signs/Intake and Output Vital Signs (last 24 hours): Temp Pulse Resp BP Pulse Ox 98.4 F 92 H 20 104/71 98 08/11/17 10:00 08/11/17 10:00 08/11/17 10:00 08/11/17 10:00 08/11/17 10:00 Intake and Output: 08/11/17 08/11/17 06:59 18:59 Intake Total 1560 Output Total 1552 300 Balance 8 -300 - Medications Medications: Current Medications Acetylcysteine (Acetylcysteine 20%) 4 ml INH RQ8 [facility] Last Admin: 08/11/17 07:15 Dose: 4 ml Albuterol/Ipratropium (Duoneb 3 Mg/0.5 Mg (3 Ml) Ud) 3 ml INH RQ8 [facility] Last Admin: 08/11/17 07:15 Dose: 3 ml Aspirin (Aspirin Chewable) 81 mg PEG DAILY [facility] Last Admin: 08/11/17 10:53 Dose: 81 mg Bethanechol Chloride (Urecholine) 50 mg PEG TID [facility] Last Admin: 08/11/17 13:27 Dose: 50 mg Carvedilol (Coreg) 3.125 mg PEG BID [facility] Last Admin: 08/11/17 10:52 Dose: 3.125 mg Clopidogrel Bisulfate (Plavix) 75 mg PEG DAILY [facility] Last Admin: 08/11/17 10:52 Dose: 75 mg Emollient Ointment (Vaseline Oint) 5 gm TOP DAILY PRN PRN Reason: Dry skin Last Admin: 08/09/17 17:47 Dose: 5 gm Enoxaparin Sodium (Lovenox) 40 mg SC DAILY [facility] Last Admin: 08/11/17 10:52 Dose: 40 mg Famotidine (Pepcid) 20 mg PEG DAILY [facility] Last Admin: 08/11/17 10:52 Dose: 20 mg Finasteride (Proscar) 5 mg PEG DAILY [facility] Last Admin: 08/11/17 10:53 Dose: 5 mg Fluconazole (Diflucan) 100 mg PEG DAILY [facility] Last Admin: 08/11/17 10:53 Dose: 100 mg Levetiracetam (Keppra) 500 mg PEG BID [facility] Last Admin: 08/11/17 10:53 Dose: 500 mg Saccharomyces Boulardii (Florastor) 250 mg PEG DAILY [facility] Last Admin: 08/11/17 10:52 Dose: 250 mg Scopolamine (Transderm-Scop) 1 patch TD Q3D [facility] Last Admin: 08/09/17 21:21 Dose: 1 patch Tamsulosin HCl (Flomax) 0.4 mg PEG DAILY [facility] Last Admin: 08/11/17 10:52 Dose: 0.4 mg - Labs Labs: 08/10/17 09:01 08/10/17 09:01 PT 10.6 SECONDS (9.7-12.2) 11/24/15 14:10 INR 1.0 11/24/15 14:10 APTT 25 SECONDS (21-34) 11/24/15 14:10 Assessment and Plan (1) Prophylactic measure Status: Acute (2) Anoxic encephalopathy Status: Chronic (3) STEMI (ST elevation myocardial infarction) Status: Acute (4) Cardiac arrest Status: Acute (5) Seizures Status: Acute (6) Respiratory failure Status: Chronic Attending/Attestation - Attestation I have personally seen and examined this patient.: Yes I have fully participated in the care of the patient.: Yes I have reviewed all pertinent clinical information, including history, physical exam and plan: Yes Notes (Text): 08/11/17 14:45 Medical Attending: Patient was seen and examined by me. Situation is unchanged from previous.
[2017-08-11] MEDS: Enoxaparin 40 mg Syringe SC SCH (10:52)
[2017-08-11] MEDS: Saccharomyces Boulardi 250 mg Cap PEG SCH (10:52)
[2017-08-11] MEDS: levETIRAcetam 100 mg/ml (5ml) Oral Syringe PEG SCH ×2 (10:53→17:27)
[2017-08-12] MEDS: Albuterol-Ipratrop 3 mg / 0.5 (3 ml) UD INH SCH ×2 (07:20→16:12)
[2017-08-12] MEDS: Acetylcysteine 20% Inhal Soln (4ml) INH SCH ×2 (07:20→16:12)
--- NOTE | 2017-08-12 07:40 | CP.PCM.PN ---
<Alisia Pappas - Last Filed: 08/12/17 13:11> Subjective - Date & Time of Evaluation Date of Evaluation: 08/12/17 Time of Evaluation: 07:00 - Subjective Subjective: Medicine Progress Note: Patient seen and examined at bedside. ROS unattainable due to anoxic brain injury. Objective - Vital Signs/Intake and Output Vital Signs (last 24 hours): Temp Pulse Resp BP Pulse Ox 99.2 F 73 20 108/73 98 08/12/17 01:00 08/12/17 01:00 08/12/17 01:00 08/12/17 01:00 08/12/17 01:00 Intake and Output: 08/12/17 08/12/17 06:59 18:59 Intake Total 1560 Output Total 400 Balance 1160 - Medications Medications: Current Medications Acetylcysteine (Acetylcysteine 20%) 4 ml INH RQ8 [facility] Last Admin: 08/12/17 07:20 Dose: 4 ml Albuterol/Ipratropium (Duoneb 3 Mg/0.5 Mg (3 Ml) Ud) 3 ml INH RQ8 [facility] Last Admin: 08/12/17 07:20 Dose: 3 ml Aspirin (Aspirin Chewable) 81 mg PEG DAILY [facility] Last Admin: 08/11/17 10:53 Dose: 81 mg Bethanechol Chloride (Urecholine) 50 mg PEG TID [facility] Last Admin: 08/11/17 17:27 Dose: 50 mg Carvedilol (Coreg) 3.125 mg PEG BID [facility] Last Admin: 08/11/17 17:27 Dose: 3.125 mg Clopidogrel Bisulfate (Plavix) 75 mg PEG DAILY [facility] Last Admin: 08/11/17 10:52 Dose: 75 mg Emollient Ointment (Vaseline Oint) 5 gm TOP DAILY PRN PRN Reason: Dry skin Last Admin: 08/09/17 17:47 Dose: 5 gm Enoxaparin Sodium (Lovenox) 40 mg SC DAILY [facility] Last Admin: 08/11/17 10:52 Dose: 40 mg Famotidine (Pepcid) 20 mg PEG DAILY [facility] Last Admin: 08/11/17 10:52 Dose: 20 mg Finasteride (Proscar) 5 mg PEG DAILY [facility] Last Admin: 08/11/17 10:53 Dose: 5 mg Fluconazole (Diflucan) 100 mg PEG DAILY [facility] Last Admin: 08/11/17 10:53 Dose: 100 mg Levetiracetam (Keppra) 500 mg PEG BID [facility] Last Admin: 08/11/17 17:27 Dose: 500 mg Saccharomyces Boulardii (Florastor) 250 mg PEG DAILY [facility] Last Admin: 08/11/17 10:52 Dose: 250 mg Scopolamine (Transderm-Scop) 1 patch TD Q3D [facility] Last Admin: 08/09/17 21:21 Dose: 1 patch Tamsulosin HCl (Flomax) 0.4 mg PEG DAILY [facility] Last Admin: 08/11/17 10:52 Dose: 0.4 mg - Labs Labs: 08/10/17 09:01 08/10/17 09:01 PT 10.6 SECONDS (9.7-12.2) 11/24/15 14:10 INR 1.0 11/24/15 14:10 APTT 25 SECONDS (21-34) 11/24/15 14:10 - Constitutional Appears: Chronically Ill - Head Exam Head Exam: ATRAUMATIC, NORMAL INSPECTION, NORMOCEPHALIC - Eye Exam Eye Exam: Normal appearance - ENT Exam ENT Exam: Mucous Membranes Moist - Respiratory Exam Respiratory Exam: NORMAL BREATHING PATTERN Additional comments: Trach in place - Cardiovascular Exam Cardiovascular Exam: REGULAR RHYTHM - GI/Abdominal Exam GI & Abdominal Exam: Soft, Normal Bowel Sounds - Extremities Exam Extremities Exam: Normal Inspection - Neurological Exam Neurological Exam: absent: Alert, Awake, Oriented x3 - Skin Skin Exam: Normal Color, Warm Assessment and Plan - Assessment and Plan (Free Text) Assessment: 1.) Anoxic encephalopathy s/p cardiac arrest in 05/2015 no acute changes Pt has non spontaneous movements. Continue tube feeds- goal of 60ml/hr, feedings held at night due to fluid overload 2.) Respiratory failure Trach in place, continue daily monitoring for secretions. No change in management at this time. Continue with aggressive suctioning multiple times a day per respiratory therapist. Monitor for signs of respiratory distress Thick secretions Duoneb 3ml INH Q6 and Mucomyst 4ml INH Q6H Robitussin 100mg PEG Q12H Scopolamine 1 patch TD Q3D [facility] Repeat CXR on 05/28/17: linear increased consolidative changes in the right mid- lung zone and left lung base which may represent atelectasis and/or infiltrate. Questionable trace left pleural effusion. moderate venous congestion. cardiomegaly. degenerative changes in the spine and shoulders 3.) Leukocytosis secondary to UTI Resolved 08/03: WBC 8.4 afebrile as of 07/29 Meropenem (started 07/22) - per Dr. Armstrong continue for a total of 2 weeks - Discontinued 08/05/17 ID consult: Dr. Armstrong --> help appreciated 4.) Urinary retention 07/21: NS stopped because tube feeds restarted 07/20: Urine dark in color, monitor, continue NS at 50 ml per hour 07/07/17: Catheter flushed, patient output approx. 500mL within one hour post flush. 06/27/17: Continue bladder massages to aid in voiding. 06/25/17: Patient voids with movement. Continue bladder massages to aid in voiding. 06/23/17: Patient will need to have daily bladder massage to allow for complete voiding 06/17/17: Nursing communication placed in: straight catherization with bladder scan> 100ml 06/08: urinary retention yesterday, was given 40mg lasix iv and patient was able to urinate through condom baker Take note condom cath not always securely in place so Is and Os are approximate as patient does wet bed Ordered- new condom catheter on 05/22/17 Flomax 0.4mg PEG daily Proscar 5mg PEG daily continue Bethanecol 50mg PEG TID- started after persistent retention and found to be effective. monitor I's and O's - I/O: 2040/1000 Check bladder scan for residual urine three times weekly 5.) Hypokalemia K+ on 08/03: 3.5 6.) Sacral ulcer Healed Cont with offloading/cushioning/turning Continue frequent turning, protective ointment and skin checks. 7.) History of coronary artery disease s/p cardiac stents on 06/13/15 Cont ASA 81mg via PEG daily Cont Coreg 3.125mg PEG BID 8.) Seizures Continue Keppra 500mg PEG BID for seizure prophylaxis Monitor for activity 9.) Lower extremity edema Improved SCDs in place Pressure ulcer boots on b/l Continue to monitor 10.) Prophylactic measure Pepcid 20 mg PEG BID Lovenox 40mg SC daily SCDs and offloading boots continue to turn and reposition q2hrs Continue to monitor medication administrations and clinical presentation weekly labs. vasoline ointment applied to feet prn to prevent hyperkeratosis Please hold feeding from 10pm-6am, placed into nursing communication <Amandeep Chavis H - Last Filed: 08/12/17 14:07> Objective - Vital Signs/Intake and Output Vital Signs (last 24 hours): Temp Pulse Resp BP Pulse Ox 98.9 F 85 20 108/79 99 08/12/17 07:47 08/12/17 07:47 08/12/17 07:47 08/12/17 07:47 08/12/17 07:47 Intake and Output: 08/12/17 08/12/17 06:59 18:59 Intake Total 1560 Output Total 400 Balance 1160 - Medications Medications: Current Medications Acetylcysteine (Acetylcysteine 20%) 4 ml INH RQ8 [facility] Last Admin: 08/12/17 07:20 Dose: 4 ml Albuterol/Ipratropium (Duoneb 3 Mg/0.5 Mg (3 Ml) Ud) 3 ml INH RQ8 [facility] Last Admin: 08/12/17 07:20 Dose: 3 ml Aspirin (Aspirin Chewable) 81 mg PEG DAILY [facility] Last Admin: 08/12/17 10:40 Dose: 81 mg Bethanechol Chloride (Urecholine) 50 mg PEG TID [facility] Last Admin: 08/12/17 13:36 Dose: 50 mg Carvedilol (Coreg) 3.125 mg PEG BID [facility] Last Admin: 08/12/17 10:41 Dose: 3.125 mg Clopidogrel Bisulfate (Plavix) 75 mg PEG DAILY [facility] Last Admin: 08/12/17 10:41 Dose: 75 mg Emollient Ointment (Vaseline Oint) 5 gm TOP DAILY PRN PRN Reason: Dry skin Last Admin: 08/09/17 17:47 Dose: 5 gm Enoxaparin Sodium (Lovenox) 40 mg SC DAILY [facility] Last Admin: 08/12/17 10:41 Dose: 40 mg Famotidine (Pepcid) 20 mg PEG DAILY [facility] Last Admin: 08/12/17 10:41 Dose: 20 mg Finasteride (Proscar) 5 mg PEG DAILY [facility] Last Admin: 08/12/17 10:41 Dose: 5 mg Fluconazole (Diflucan) 100 mg PEG DAILY [facility] Last Admin: 08/12/17 10:41 Dose: 100 mg Levetiracetam (Keppra) 500 mg PEG BID [facility] Last Admin: 08/12/17 10:42 Dose: 500 mg Saccharomyces Boulardii (Florastor) 250 mg PEG DAILY [facility] Last Admin: 08/12/17 10:40 Dose: 250 mg Scopolamine (Transderm-Scop) 1 patch TD Q3D [facility] Last Admin: 08/09/17 21:21 Dose: 1 patch Tamsulosin HCl (Flomax) 0.4 mg PEG DAILY [facility] Last Admin: 08/12/17 10:41 Dose: 0.4 mg - Labs Labs: 08/10/17 09:01 08/10/17 09:01 PT 10.6 SECONDS (9.7-12.2) 11/24/15 14:10 INR 1.0 11/24/15 14:10 APTT 25 SECONDS (21-34) 11/24/15 14:10 Assessment and Plan (1) Prophylactic measure Status: Acute (2) Anoxic encephalopathy Status: Chronic (3) STEMI (ST elevation myocardial infarction) Status: Acute (4) Cardiac arrest Status: Acute (5) Seizures Status: Acute (6) Respiratory failure Status: Chronic Attending/Attestation - Attestation I have personally seen and examined this patient.: Yes I have fully participated in the care of the patient.: Yes I have reviewed all pertinent clinical information, including history, physical exam and plan: Yes Notes (Text): Medical Attending: Patient was seen and examined by me. Agree with the above note by the resident. The situation is unchanged from previous Amandeep Chavis
[2017-08-12] MEDS: Saccharomyces Boulardi 250 mg Cap PEG SCH (10:40)
[2017-08-12] MEDS: Enoxaparin 40 mg Syringe SC SCH (10:41)
[2017-08-12] MEDS: levETIRAcetam 100 mg/ml (5ml) Oral Syringe PEG SCH ×2 (10:42→17:55)
[2017-08-13] MEDS: Albuterol-Ipratrop 3 mg / 0.5 (3 ml) UD INH SCH ×3 (01:36→16:32)
[2017-08-13] MEDS: Acetylcysteine 20% Inhal Soln (4ml) INH SCH ×3 (01:36→16:32)
--- NOTE | 2017-08-13 08:33 | CP.PCM.PN ---
<Alisia Pappas - Last Filed: 08/13/17 14:22> Subjective - Date & Time of Evaluation Date of Evaluation: 08/13/17 Time of Evaluation: 07:00 - Subjective Subjective: Medicine Progress Note: Patient seen and examined at bedside. ROS unattainable due to anoxic brain injury. Objective - Vital Signs/Intake and Output Vital Signs (last 24 hours): Temp Pulse Resp BP Pulse Ox 98.9 F 78 20 107/78 99 08/13/17 00:00 08/13/17 00:00 08/13/17 00:00 08/13/17 00:00 08/13/17 00:00 Intake and Output: 08/13/17 08/13/17 06:59 18:59 Intake Total 780 780 Output Total 400 350 Balance 380 430 - Medications Medications: Current Medications Acetylcysteine (Acetylcysteine 20%) 4 ml INH RQ8 [facility] Last Admin: 08/13/17 08:16 Dose: 4 ml Albuterol/Ipratropium (Duoneb 3 Mg/0.5 Mg (3 Ml) Ud) 3 ml INH RQ8 [facility] Last Admin: 08/13/17 08:16 Dose: 3 ml Aspirin (Aspirin Chewable) 81 mg PEG DAILY [facility] Last Admin: 08/12/17 10:40 Dose: 81 mg Bethanechol Chloride (Urecholine) 50 mg PEG TID [facility] Last Admin: 08/12/17 17:55 Dose: 50 mg Carvedilol (Coreg) 3.125 mg PEG BID [facility] Last Admin: 08/12/17 17:57 Dose: 3.125 mg Clopidogrel Bisulfate (Plavix) 75 mg PEG DAILY [facility] Last Admin: 08/12/17 10:41 Dose: 75 mg Emollient Ointment (Vaseline Oint) 5 gm TOP DAILY PRN PRN Reason: Dry skin Last Admin: 08/09/17 17:47 Dose: 5 gm Enoxaparin Sodium (Lovenox) 40 mg SC DAILY [facility] Last Admin: 08/12/17 10:41 Dose: 40 mg Famotidine (Pepcid) 20 mg PEG DAILY [facility] Last Admin: 08/12/17 10:41 Dose: 20 mg Finasteride (Proscar) 5 mg PEG DAILY [facility] Last Admin: 08/12/17 10:41 Dose: 5 mg Fluconazole (Diflucan) 100 mg PEG DAILY [facility] Last Admin: 08/12/17 10:41 Dose: 100 mg Levetiracetam (Keppra) 500 mg PEG BID [facility] Last Admin: 08/12/17 17:55 Dose: 500 mg Saccharomyces Boulardii (Florastor) 250 mg PEG DAILY [facility] Last Admin: 08/12/17 10:40 Dose: 250 mg Scopolamine (Transderm-Scop) 1 patch TD Q3D [facility] Last Admin: 08/12/17 20:54 Dose: 1 patch Tamsulosin HCl (Flomax) 0.4 mg PEG DAILY [facility] Last Admin: 08/12/17 10:41 Dose: 0.4 mg Vitamin A (Vitamin A & D Oint Ud Foilpak) 1 ea TOP BID [facility] - Labs Labs: 08/10/17 09:01 08/10/17 09:01 PT 10.6 SECONDS (9.7-12.2) 11/24/15 14:10 INR 1.0 11/24/15 14:10 APTT 25 SECONDS (21-34) 11/24/15 14:10 - Constitutional Appears: Chronically Ill - Head Exam Head Exam: ATRAUMATIC, NORMAL INSPECTION, NORMOCEPHALIC - Eye Exam Eye Exam: Normal appearance - ENT Exam ENT Exam: Mucous Membranes Dry - Respiratory Exam Respiratory Exam: NORMAL BREATHING PATTERN Additional comments: Trach in place - Cardiovascular Exam Cardiovascular Exam: REGULAR RHYTHM - GI/Abdominal Exam GI & Abdominal Exam: Soft, Normal Bowel Sounds - Extremities Exam Extremities Exam: Normal Inspection - Neurological Exam Neurological Exam: absent: Alert, Awake, Oriented x3 - Skin Skin Exam: Normal Color, Warm Assessment and Plan - Assessment and Plan (Free Text) Assessment: 1.) Anoxic encephalopathy s/p cardiac arrest in 05/2015 no acute changes Pt has non spontaneous movements. Continue tube feeds- goal of 60ml/hr, feedings held at night due to fluid overload 2.) Respiratory failure Trach in place, continue daily monitoring for secretions. No change in management at this time. Continue with aggressive suctioning multiple times a day per respiratory therapist. Monitor for signs of respiratory distress Thick secretions Duoneb 3ml INH Q6 and Mucomyst 4ml INH Q6H Robitussin 100mg PEG Q12H Scopolamine 1 patch TD Q3D [facility] Repeat CXR on 05/28/17: linear increased consolidative changes in the right mid- lung zone and left lung base which may represent atelectasis and/or infiltrate. Questionable trace left pleural effusion. moderate venous congestion. cardiomegaly. degenerative changes in the spine and shoulders 3.) Leukocytosis secondary to UTI Resolved 08/03: WBC 8.4 afebrile as of 07/29 Meropenem (started 07/22) - per Dr. Armstrong continue for a total of 2 weeks - Discontinued 08/05/17 ID consult: Dr. Armstrong --> help appreciated 4.) Urinary retention 07/21: NS stopped because tube feeds restarted 07/20: Urine dark in color, monitor, continue NS at 50 ml per hour 07/07/17: Catheter flushed, patient output approx. 500mL within one hour post flush. 06/27/17: Continue bladder massages to aid in voiding. 06/25/17: Patient voids with movement. Continue bladder massages to aid in voiding. 06/23/17: Patient will need to have daily bladder massage to allow for complete voiding 06/17/17: Nursing communication placed in: straight catherization with bladder scan> 100ml 06/08: urinary retention yesterday, was given 40mg lasix iv and patient was able to urinate through condom baker Take note condom cath not always securely in place so Is and Os are approximate as patient does wet bed Ordered- new condom catheter on 05/22/17 Flomax 0.4mg PEG daily Proscar 5mg PEG daily continue Bethanecol 50mg PEG TID- started after persistent retention and found to be effective. monitor I's and O's - I/O: 780/350 Check bladder scan for residual urine three times weekly 5.) Hypokalemia K+ on 08/03: 3.5 6.) Sacral ulcer Healed Cont with offloading/cushioning/turning Continue frequent turning, protective ointment and skin checks. 7.) History of coronary artery disease s/p cardiac stents on 06/13/15 Cont ASA 81mg via PEG daily Cont Coreg 3.125mg PEG BID 8.) Seizures Continue Keppra 500mg PEG BID for seizure prophylaxis Monitor for activity 9.) Lower extremity edema Improved SCDs in place Pressure ulcer boots on b/l Continue to monitor 10.) Prophylactic measure Pepcid 20 mg PEG BID Lovenox 40mg SC daily SCDs and offloading boots continue to turn and reposition q2hrs Continue to monitor medication administrations and clinical presentation weekly labs. vasoline ointment applied to feet prn to prevent hyperkeratosis Please hold feeding from 10pm-6am, placed into nursing communication Vitamin A & D for lips <ChavisAmandeep H - Last Filed: 08/13/17 15:08> Objective - Vital Signs/Intake and Output Vital Signs (last 24 hours): Temp Pulse Resp BP Pulse Ox 98 F 89 20 114/80 100 08/13/17 09:37 08/13/17 09:37 08/13/17 09:37 08/13/17 09:37 08/13/17 09:37 Intake and Output: 08/13/17 08/13/17 06:59 18:59 Intake Total 780 1560 Output Total 400 950 Balance 380 610 - Medications Medications: Current Medications Acetylcysteine (Acetylcysteine 20%) 4 ml INH RQ8 [facility] Last Admin: 08/13/17 08:16 Dose: 4 ml Albuterol/Ipratropium (Duoneb 3 Mg/0.5 Mg (3 Ml) Ud) 3 ml INH RQ8 [facility] Last Admin: 08/13/17 08:16 Dose: 3 ml Aspirin (Aspirin Chewable) 81 mg PEG DAILY [facility] Last Admin: 08/13/17 09:44 Dose: 81 mg Bethanechol Chloride (Urecholine) 50 mg PEG TID [facility] Last Admin: 08/13/17 13:28 Dose: 50 mg Carvedilol (Coreg) 3.125 mg PEG BID [facility] Last Admin: 08/13/17 09:49 Dose: 3.125 mg Clopidogrel Bisulfate (Plavix) 75 mg PEG DAILY [facility] Last Admin: 08/13/17 09:51 Dose: 75 mg Emollient Ointment (Vaseline Oint) 5 gm TOP DAILY PRN PRN Reason: Dry skin Last Admin: 08/13/17 09:58 Dose: 5 gm Enoxaparin Sodium (Lovenox) 40 mg SC DAILY [facility] Last Admin: 08/13/17 09:50 Dose: 40 mg Famotidine (Pepcid) 20 mg PEG DAILY [facility] Last Admin: 08/13/17 09:51 Dose: 20 mg Finasteride (Proscar) 5 mg PEG DAILY [facility] Last Admin: 08/13/17 09:52 Dose: 5 mg Fluconazole (Diflucan) 100 mg PEG DAILY [facility] Last Admin: 08/13/17 09:48 Dose: 100 mg Levetiracetam (Keppra) 500 mg PEG BID [facility] Last Admin: 08/13/17 09:50 Dose: 500 mg Saccharomyces Boulardii (Florastor) 250 mg PEG DAILY [facility] Last Admin: 08/13/17 09:50 Dose: 250 mg Scopolamine (Transderm-Scop) 1 patch TD Q3D [facility] Last Admin: 08/12/17 20:54 Dose: 1 patch Tamsulosin HCl (Flomax) 0.4 mg PEG DAILY [facility] Last Admin: 08/13/17 09:50 Dose: 0.4 mg Vitamin A (Vitamin A & D Oint Ud Foilpak) 1 ea TOP BID [facility] Last Admin: 08/13/17 13:29 Dose: Not Given - Labs Labs: 08/10/17 09:01 08/10/17 09:01 PT 10.6 SECONDS (9.7-12.2) 11/24/15 14:10 INR 1.0 11/24/15 14:10 APTT 25 SECONDS (21-34) 11/24/15 14:10 Assessment and Plan (1) Prophylactic measure Status: Acute (2) Anoxic encephalopathy Status: Chronic (3) STEMI (ST elevation myocardial infarction) Status: Acute (4) Cardiac arrest Status: Acute (5) Seizures Status: Acute (6) Respiratory failure Status: Chronic Attending/Attestation - Attestation I have personally seen and examined this patient.: Yes I have fully participated in the care of the patient.: Yes I have reviewed all pertinent clinical information, including history, physical exam and plan: Yes Notes (Text): 08/13/17 15:07 Medical Attending: Patient was seen and examined by me Agree with the above by resident No change in situation Amandeep Chavis
[2017-08-13] MEDS: levETIRAcetam 100 mg/ml (5ml) Oral Syringe PEG SCH ×2 (09:50→18:05)
[2017-08-13] MEDS: Enoxaparin 40 mg Syringe SC SCH (09:50)
[2017-08-13] MEDS: Saccharomyces Boulardi 250 mg Cap PEG SCH (09:50)
[2017-08-13] MEDS: Petrolatum Oint Foilpak (5 gm) TOP PRN (09:58)
[2017-08-13] MEDS: Vitamins A & D Oint UD Foilpak TOP SCH ×2 (13:29→18:04)
[2017-08-14] MEDS: Acetylcysteine 20% Inhal Soln (4ml) INH SCH ×3 (01:03→15:22)
[2017-08-14] MEDS: Albuterol-Ipratrop 3 mg / 0.5 (3 ml) UD INH SCH ×3 (01:03→15:22)
[2017-08-14] MEDS: levETIRAcetam 100 mg/ml (5ml) Oral Syringe PEG SCH ×2 (09:11→17:19)
[2017-08-14] MEDS: Saccharomyces Boulardi 250 mg Cap PEG SCH (09:12)
[2017-08-14] MEDS: Enoxaparin 40 mg Syringe SC SCH (09:12)
[2017-08-14] MEDS: Petrolatum Oint Foilpak (5 gm) TOP PRN ×2 (09:13→17:18)
--- NOTE | 2017-08-14 09:54 | CP.PCM.PN ---
Subjective - Date & Time of Evaluation Date of Evaluation: 08/14/17 Time of Evaluation: 07:10 - Subjective Subjective: Medicine Progress Note: Patient seen and examined at bedside. ROS unattainable due to anoxic brain injury. Objective - Vital Signs/Intake and Output Vital Signs (last 24 hours): Temp Pulse Resp BP Pulse Ox 98 F 84 21 113/76 99 08/14/17 08:19 08/14/17 08:19 08/14/17 08:19 08/14/17 08:19 08/14/17 08:19 Intake and Output: 08/14/17 08/14/17 06:59 18:59 Intake Total 1080 780 Output Total 350 Balance 1080 430 - Medications Medications: Current Medications Acetylcysteine (Acetylcysteine 20%) 4 ml INH RQ8 [facility] Last Admin: 08/14/17 07:27 Dose: 4 ml Albuterol/Ipratropium (Duoneb 3 Mg/0.5 Mg (3 Ml) Ud) 3 ml INH RQ8 [facility] Last Admin: 08/14/17 07:27 Dose: 3 ml Aspirin (Aspirin Chewable) 81 mg PEG DAILY [facility] Last Admin: 08/14/17 09:11 Dose: 81 mg Bethanechol Chloride (Urecholine) 50 mg PEG TID [facility] Last Admin: 08/14/17 09:12 Dose: 50 mg Carvedilol (Coreg) 3.125 mg PEG BID [facility] Last Admin: 08/14/17 09:12 Dose: 3.125 mg Clopidogrel Bisulfate (Plavix) 75 mg PEG DAILY [facility] Last Admin: 08/14/17 09:12 Dose: 75 mg Emollient Ointment (Vaseline Oint) 5 gm TOP DAILY PRN PRN Reason: Dry skin Last Admin: 08/14/17 09:13 Dose: 5 gm Enoxaparin Sodium (Lovenox) 40 mg SC DAILY [facility] Last Admin: 08/14/17 09:12 Dose: 40 mg Famotidine (Pepcid) 20 mg PEG DAILY [facility] Last Admin: 08/14/17 09:12 Dose: 20 mg Finasteride (Proscar) 5 mg PEG DAILY [facility] Last Admin: 08/14/17 09:11 Dose: 5 mg Levetiracetam (Keppra) 500 mg PEG BID [facility] Last Admin: 08/14/17 09:11 Dose: 500 mg Saccharomyces Boulardii (Florastor) 250 mg PEG DAILY [facility] Last Admin: 08/14/17 09:12 Dose: 250 mg Scopolamine (Transderm-Scop) 1 patch TD Q3D [facility] Last Admin: 08/12/17 20:54 Dose: 1 patch Tamsulosin HCl (Flomax) 0.4 mg PEG DAILY [facility] Last Admin: 08/14/17 09:12 Dose: 0.4 mg Vitamin A (Vitamin A & D Oint Ud Foilpak) 1 ea TOP BID [facility] Last Admin: 08/13/17 18:04 Dose: 1 ea - Labs Labs: 08/10/17 09:01 08/10/17 09:01 PT 10.6 SECONDS (9.7-12.2) 11/24/15 14:10 INR 1.0 11/24/15 14:10 APTT 25 SECONDS (21-34) 11/24/15 14:10 - Constitutional Appears: Chronically Ill - Head Exam Head Exam: ATRAUMATIC, NORMAL INSPECTION, NORMOCEPHALIC - Eye Exam Eye Exam: Normal appearance - ENT Exam ENT Exam: Mucous Membranes Dry - Respiratory Exam Respiratory Exam: NORMAL BREATHING PATTERN Additional comments: Trach in place - Cardiovascular Exam Cardiovascular Exam: REGULAR RHYTHM - GI/Abdominal Exam GI & Abdominal Exam: Soft, Normal Bowel Sounds - Extremities Exam Extremities Exam: Normal Inspection - Neurological Exam Neurological Exam: absent: Alert, Awake, Oriented x3 - Skin Skin Exam: Normal Color, Warm Assessment and Plan - Assessment and Plan (Free Text) Assessment: 1.) Anoxic encephalopathy s/p cardiac arrest in 05/2015 no acute changes Pt has non spontaneous movements. Continue tube feeds- goal of 60ml/hr, feedings held at night due to fluid overload 2.) Respiratory failure Trach in place, continue daily monitoring for secretions. No change in management at this time. Continue with aggressive suctioning multiple times a day per respiratory therapist. Monitor for signs of respiratory distress Thick secretions Duoneb 3ml INH Q6 and Mucomyst 4ml INH Q6H Robitussin 100mg PEG Q12H Scopolamine 1 patch TD Q3D [facility] Repeat CXR on 05/28/17: linear increased consolidative changes in the right mid- lung zone and left lung base which may represent atelectasis and/or infiltrate. Questionable trace left pleural effusion. moderate venous congestion. cardiomegaly. degenerative changes in the spine and shoulders 3.) Leukocytosis secondary to UTI Resolved 08/03: WBC 8.4 afebrile as of 07/29 Meropenem (started 07/22) - per Dr. Armstrong continue for a total of 2 weeks - Discontinued 08/05/17 ID consult: Dr. Armstrong --> help appreciated 4.) Urinary retention 07/21: NS stopped because tube feeds restarted 07/20: Urine dark in color, monitor, continue NS at 50 ml per hour 07/07/17: Catheter flushed, patient output approx. 500mL within one hour post flush. 06/27/17: Continue bladder massages to aid in voiding. 06/25/17: Patient voids with movement. Continue bladder massages to aid in voiding. 06/23/17: Patient will need to have daily bladder massage to allow for complete voiding 06/17/17: Nursing communication placed in: straight catherization with bladder scan> 100ml 06/08: urinary retention yesterday, was given 40mg lasix iv and patient was able to urinate through condom baker Take note condom cath not always securely in place so Is and Os are approximate as patient does wet bed Ordered- new condom catheter on 05/22/17 Flomax 0.4mg PEG daily Proscar 5mg PEG daily continue Bethanecol 50mg PEG TID- started after persistent retention and found to be effective. monitor I's and O's - I/O: 780/350 Check bladder scan for residual urine three times weekly 5.) Hypokalemia K+ on 08/03: 3.5 6.) Sacral ulcer Healed Cont with offloading/cushioning/turning Continue frequent turning, protective ointment and skin checks. 7.) History of coronary artery disease s/p cardiac stents on 06/13/15 Cont ASA 81mg via PEG daily Cont Coreg 3.125mg PEG BID 8.) Seizures Continue Keppra 500mg PEG BID for seizure prophylaxis Monitor for activity 9.) Lower extremity edema Improved SCDs in place Pressure ulcer boots on b/l Continue to monitor 10.) Prophylactic measure Pepcid 20 mg PEG BID Lovenox 40mg SC daily SCDs and offloading boots continue to turn and reposition q2hrs Continue to monitor medication administrations and clinical presentation weekly labs. vasoline ointment applied to feet prn to prevent hyperkeratosis Please hold feeding from 10pm-6am, placed into nursing communication Vitamin A & D for lips
[2017-08-14] MEDS: Vitamins A & D Oint UD Foilpak TOP SCH ×2 (10:22→19:00)
[2017-08-15] MEDS: Albuterol-Ipratrop 3 mg / 0.5 (3 ml) UD INH SCH ×3 (00:01→16:27)
[2017-08-15] MEDS: Acetylcysteine 20% Inhal Soln (4ml) INH SCH ×3 (00:01→16:27)
[2017-08-15] MEDS: Saccharomyces Boulardi 250 mg Cap PEG SCH (10:04)
[2017-08-15] MEDS: levETIRAcetam 100 mg/ml (5ml) Oral Syringe PEG SCH ×3 (10:05→19:04)
[2017-08-15] MEDS: Enoxaparin 40 mg Syringe SC SCH (10:05)
[2017-08-15] MEDS: Vitamins A & D Oint UD Foilpak TOP SCH ×2 (10:07→17:54)
--- NOTE | 2017-08-15 12:42 | CP.PCM.PN ---
Subjective - Date & Time of Evaluation Date of Evaluation: 08/15/17 Time of Evaluation: 08:00 - Subjective Subjective: Medicine Progress Note- Dr. Chavis's Service: Patient seen and examined at bedside this AM. Patient is non verbal at baseline. Trach in place. Nurse aspirated him due to secretions. Patient has airlift boots on and wedge under his side. No acute events overnight. Objective - Vital Signs/Intake and Output Vital Signs (last 24 hours): Temp Pulse Resp BP Pulse Ox 98.7 F 78 20 123/82 99 08/15/17 09:13 08/15/17 09:13 08/15/17 09:13 08/15/17 09:13 08/15/17 09:13 Intake and Output: 08/15/17 08/15/17 06:59 18:59 Intake Total 1610 Output Total 800 Balance 810 - Medications Medications: Current Medications Acetylcysteine (Acetylcysteine 20%) 4 ml INH RQ8 [facility] Last Admin: 08/15/17 09:29 Dose: 4 ml Albuterol/Ipratropium (Duoneb 3 Mg/0.5 Mg (3 Ml) Ud) 3 ml INH RQ8 [facility] Last Admin: 08/15/17 09:29 Dose: 3 ml Aspirin (Aspirin Chewable) 81 mg PEG DAILY [facility] Last Admin: 08/15/17 10:03 Dose: 81 mg Bethanechol Chloride (Urecholine) 50 mg PEG TID [facility] Last Admin: 08/15/17 10:07 Dose: 50 mg Carvedilol (Coreg) 3.125 mg PEG BID [facility] Last Admin: 08/15/17 10:04 Dose: 3.125 mg Clopidogrel Bisulfate (Plavix) 75 mg PEG DAILY [facility] Last Admin: 08/15/17 10:06 Dose: 75 mg Emollient Ointment (Vaseline Oint) 5 gm TOP DAILY PRN PRN Reason: Dry skin Last Admin: 08/14/17 17:18 Dose: 5 gm Enoxaparin Sodium (Lovenox) 40 mg SC DAILY [facility] Last Admin: 08/15/17 10:05 Dose: 40 mg Famotidine (Pepcid) 20 mg PEG DAILY [facility] Last Admin: 08/15/17 10:05 Dose: 20 mg Finasteride (Proscar) 5 mg PEG DAILY [facility] Last Admin: 09/23/17 10:06 Dose: 5 mg Levetiracetam (Keppra) 500 mg PEG BID [facility] Last Admin: 08/15/17 10:05 Dose: 500 mg Saccharomyces Boulardii (Florastor) 250 mg PEG DAILY [facility] Last Admin: 08/15/17 10:04 Dose: 250 mg Scopolamine (Transderm-Scop) 1 patch TD Q3D [facility] Last Admin: 08/12/17 20:54 Dose: 1 patch Tamsulosin HCl (Flomax) 0.4 mg PEG DAILY [facility] Last Admin: 08/15/17 10:04 Dose: 0.4 mg Vitamin A (Vitamin A & D Oint Ud Foilpak) 1 ea TOP BID [facility] Last Admin: 08/15/17 10:07 Dose: 1 ea - Labs Labs: 08/10/17 09:01 08/10/17 09:01 PT 10.6 SECONDS (9.7-12.2) 11/24/15 14:10 INR 1.0 11/24/15 14:10 APTT 25 SECONDS (21-34) 11/24/15 14:10 - Constitutional Appears: No Acute Distress - Head Exam Head Exam: NORMAL INSPECTION, NORMOCEPHALIC - Eye Exam Eye Exam: Normal appearance - ENT Exam ENT Exam: Mucous Membranes Moist - Neck Exam Neck Exam: absent: Full ROM - Respiratory Exam Respiratory Exam: Clear to Ausculation Bilateral, NORMAL BREATHING PATTERN - Cardiovascular Exam Cardiovascular Exam: REGULAR RHYTHM, +S1, +S2 - GI/Abdominal Exam GI & Abdominal Exam: Soft. absent: Distended, Tenderness - Extremities Exam Extremities Exam: absent: Pedal Edema - Neurological Exam Neurological Exam: Altered, Awake. absent: Oriented x3 - Psychiatric Exam Psychiatric exam: Flat Affect - Skin Skin Exam: Dry, Warm Assessment and Plan - Assessment and Plan (Free Text) Assessment: 1.) Anoxic encephalopathy s/p cardiac arrest in 05/2015 no acute changes Pt has non spontaneous movements. Continue tube feeds- goal of 60ml/hr, feedings held at night due to fluid overload 2.) Respiratory failure Trach in place, continue daily monitoring for secretions. No change in management at this time. Continue with aggressive suctioning multiple times a day per respiratory therapist. Monitor for signs of respiratory distress Thick secretions Duoneb 3ml INH Q6 and Mucomyst 4ml INH Q6H Scopolamine 1 patch TD Q3D [facility] Repeat CXR on 05/28/17: linear increased consolidative changes in the right mid- lung zone and left lung base which may represent atelectasis and/or infiltrate. Questionable trace left pleural effusion. moderate venous congestion. cardiomegaly. degenerative changes in the spine and shoulders 3.) Leukocytosis secondary to UTI. Resolved 08/10: WBC 8.2 afebrile Meropenem (started 07/22) - per Dr. Armstrong continue for a total of 2 weeks - Discontinued 08/05/17 ID consult: Dr. Armstrong --> help appreciated 4.) Urinary retention 07/21: NS stopped because tube feeds restarted 07/20: Urine dark in color, monitor, continue NS at 50 ml per hour 07/07/17: Catheter flushed, patient output approx. 500mL within one hour post flush. 06/27/17: Continue bladder massages to aid in voiding. 06/25/17: Patient voids with movement. Continue bladder massages to aid in voiding. 06/23/17: Patient will need to have daily bladder massage to allow for complete voiding 06/17/17: Nursing communication placed in: straight catherization with bladder scan> 100ml 06/08: urinary retention yesterday, was given 40mg lasix iv and patient was able to urinate through condom baker Take note condom cath not always securely in place so Is and Os are approximate as patient does wet bed Ordered- new condom catheter on 05/22/17 Flomax 0.4mg PEG daily Proscar 5mg PEG daily continue Bethanecol 50mg PEG TID- started after persistent retention and found to be effective. monitor I's and O's - I/O: 780/350 Check bladder scan for residual urine three times weekly 5.) Hypokalemia K+ on 08/10: 4.2 6.) Sacral ulcer Healed Cont with offloading/cushioning/turning Continue frequent turning, protective ointment and skin checks. 7.) History of coronary artery disease s/p cardiac stents on 06/13/15 Cont ASA 81mg via PEG daily Cont Coreg 3.125mg PEG BID Cont Plavix 75 mg PEG daily 8.) Seizures Continue Keppra 500mg PEG BID for seizure prophylaxis Monitor for activity 9.) Lower extremity edema Improved SCDs in place Pressure ulcer boots on b/l Continue to monitor 10.) Prophylactic measure Pepcid 20 mg PEG BID Lovenox 40mg SC daily SCDs and offloading boots continue to turn and reposition q2hrs Continue to monitor medication administrations and clinical presentation weekly labs. vasoline ointment applied to feet prn to prevent hyperkeratosis Please hold feeding from 10pm-6am, placed into nursing communication Vitamin A & D for lips
[2017-08-16] MEDS: Acetylcysteine 20% Inhal Soln (4ml) INH SCH ×3 (00:01→23:56)
[2017-08-16] MEDS: Albuterol-Ipratrop 3 mg / 0.5 (3 ml) UD INH SCH ×3 (00:01→23:56)
--- NOTE | 2017-08-16 01:34 | CP.PCM.PN ---
<Josue Denson - Last Filed: 08/16/17 01:32> Subjective - Date & Time of Evaluation Date of Evaluation: 08/16/17 Time of Evaluation: 01:32 - Subjective Subjective: PGY1 Note for Dr. Mercedes HPI: Patient seen and examined at bedside. ROS unattainable due to anoxic brain injury. Objective - Vital Signs/Intake and Output Vital Signs (last 24 hours): Temp Pulse Resp BP Pulse Ox 98.2 F 85 20 125/82 97 08/15/17 15:00 08/15/17 18:18 08/15/17 15:00 08/15/17 18:18 08/15/17 15:00 Intake and Output: 08/15/17 08/16/17 18:59 06:59 Intake Total 780 780 Output Total 400 600 Balance 380 180 - Medications Medications: Current Medications Acetylcysteine (Acetylcysteine 20%) 4 ml INH RQ8 [facility] Last Admin: 08/16/17 00:01 Dose: 4 ml Albuterol/Ipratropium (Duoneb 3 Mg/0.5 Mg (3 Ml) Ud) 3 ml INH RQ8 [facility] Last Admin: 08/16/17 00:01 Dose: 3 ml Aspirin (Aspirin Chewable) 81 mg PEG DAILY [facility] Last Admin: 08/15/17 10:03 Dose: 81 mg Bethanechol Chloride (Urecholine) 50 mg PEG TID [facility] Last Admin: 08/15/17 17:53 Dose: 50 mg Carvedilol (Coreg) 3.125 mg PEG BID [facility] Last Admin: 08/15/17 17:54 Dose: 3.125 mg Clopidogrel Bisulfate (Plavix) 75 mg PEG DAILY [facility] Last Admin: 08/15/17 10:06 Dose: 75 mg Emollient Ointment (Vaseline Oint) 5 gm TOP DAILY PRN PRN Reason: Dry skin Last Admin: 08/14/17 17:18 Dose: 5 gm Enoxaparin Sodium (Lovenox) 40 mg SC DAILY [facility] Last Admin: 08/15/17 10:05 Dose: 40 mg Famotidine (Pepcid) 20 mg PEG DAILY [facility] Last Admin: 08/15/17 10:05 Dose: 20 mg Finasteride (Proscar) 5 mg PEG DAILY [facility] Last Admin: 08/15/17 10:06 Dose: 5 mg Levetiracetam (Keppra) 500 mg PEG BID [facility] Last Admin: 08/15/17 19:04 Dose: 500 mg Saccharomyces Boulardii (Florastor) 250 mg PEG DAILY [facility] Last Admin: 08/15/17 10:04 Dose: 250 mg Scopolamine (Transderm-Scop) 1 patch TD Q3D [facility] Last Admin: 08/15/17 21:39 Dose: 1 patch Tamsulosin HCl (Flomax) 0.4 mg PEG DAILY [facility] Last Admin: 08/15/17 10:04 Dose: 0.4 mg Vitamin A (Vitamin A & D Oint Ud Foilpak) 1 ea TOP BID [facility] Last Admin: 08/15/17 17:54 Dose: 1 ea - Labs Labs: 08/10/17 09:01 08/10/17 09:01 PT 10.6 SECONDS (9.7-12.2) 11/24/15 14:10 INR 1.0 11/24/15 14:10 APTT 25 SECONDS (21-34) 11/24/15 14:10 - Constitutional Appears: Chronically Ill - Head Exam Head Exam: ATRAUMATIC, NORMAL INSPECTION, NORMOCEPHALIC - ENT Exam ENT Exam: Mucous Membranes Moist - Respiratory Exam Respiratory Exam: Clear to Ausculation Bilateral, NORMAL BREATHING PATTERN - Cardiovascular Exam Cardiovascular Exam: REGULAR RHYTHM - GI/Abdominal Exam GI & Abdominal Exam: Soft, Normal Bowel Sounds. absent: Distended, Tenderness - Extremities Exam Extremities Exam: absent: Joint Swelling, Tenderness - Neurological Exam Neurological Exam: Altered - Skin Skin Exam: Dry, Intact, Normal Color, Warm Assessment and Plan - Assessment and Plan (Free Text) Assessment: 1.) Anoxic encephalopathy s/p cardiac arrest in 05/2015 no acute changes Pt has non spontaneous movements. Continue tube feeds- goal of 60ml/hr, feedings held at night due to fluid overload 2.) Respiratory failure Trach in place, continue daily monitoring for secretions. No change in management at this time. Continue with aggressive suctioning multiple times a day per respiratory therapist. Monitor for signs of respiratory distress Thick secretions Duoneb 3ml INH Q6 and Mucomyst 4ml INH Q6H Scopolamine 1 patch TD Q3D [facility] Repeat CXR on 05/28/17: linear increased consolidative changes in the right mid- lung zone and left lung base which may represent atelectasis and/or infiltrate. Questionable trace left pleural effusion. moderate venous congestion. cardiomegaly. degenerative changes in the spine and shoulders 3.) Leukocytosis secondary to UTI. Resolved 08/10: WBC 8.2 afebrile Meropenem (started 07/22) - per Dr. Armstrong continue for a total of 2 weeks - Discontinued 08/05/17 ID consult: Dr. Armstrong --> help appreciated 4.) Urinary retention 07/21: NS stopped because tube feeds restarted 07/20: Urine dark in color, monitor, continue NS at 50 ml per hour 07/07/17: Catheter flushed, patient output approx. 500mL within one hour post flush. 06/27/17: Continue bladder massages to aid in voiding. 06/25/17: Patient voids with movement. Continue bladder massages to aid in voiding. 06/23/17: Patient will need to have daily bladder massage to allow for complete voiding 06/17/17: Nursing communication placed in: straight catherization with bladder scan> 100ml 06/08: urinary retention yesterday, was given 40mg lasix iv and patient was able to urinate through condom baker Take note condom cath not always securely in place so Is and Os are approximate as patient does wet bed Ordered- new condom catheter on 05/22/17 Flomax 0.4mg PEG daily Proscar 5mg PEG daily continue Bethanecol 50mg PEG TID- started after persistent retention and found to be effective. monitor I's and O's - I/O: 780/350 Check bladder scan for residual urine three times weekly 5.) Hypokalemia K+ on 08/10: 4.2 6.) Sacral ulcer Healed Cont with offloading/cushioning/turning Continue frequent turning, protective ointment and skin checks. 7.) History of coronary artery disease s/p cardiac stents on 06/13/15 Cont ASA 81mg via PEG daily Cont Coreg 3.125mg PEG BID Cont Plavix 75 mg PEG daily 8.) Seizures Continue Keppra 500mg PEG BID for seizure prophylaxis Monitor for activity 9.) Lower extremity edema Improved SCDs in place Pressure ulcer boots on b/l Continue to monitor 10.) Prophylactic measure Pepcid 20 mg PEG BID Lovenox 40mg SC daily SCDs and offloading boots continue to turn and reposition q2hrs Continue to monitor medication administrations and clinical presentation weekly labs. vasoline ointment applied to feet prn to prevent hyperkeratosis Please hold feeding from 10pm-6am, placed into nursing communication Vitamin A & D for lips <Amandeep Chavis H - Last Filed: 08/16/17 11:21> Objective - Vital Signs/Intake and Output Vital Signs (last 24 hours): Temp Pulse Resp BP Pulse Ox 98.3 F 87 20 128/88 100 08/16/17 09:06 08/16/17 09:06 08/16/17 09:06 08/16/17 09:06 08/16/17 09:06 Intake and Output: 08/16/17 08/16/17 06:59 18:59 Intake Total 1560 Output Total 1250 Balance 310 - Medications Medications: Current Medications Acetylcysteine (Acetylcysteine 20%) 4 ml INH RQ8 [facility] Last Admin: 08/16/17 00:01 Dose: 4 ml Albuterol/Ipratropium (Duoneb 3 Mg/0.5 Mg (3 Ml) Ud) 3 ml INH RQ8 [facility] Last Admin: 08/16/17 00:01 Dose: 3 ml Aspirin (Aspirin Chewable) 81 mg PEG DAILY [facility] Last Admin: 08/16/17 10:17 Dose: 81 mg Bethanechol Chloride (Urecholine) 50 mg PEG TID [facility] Last Admin: 08/16/17 10:20 Dose: 50 mg Carvedilol (Coreg) 3.125 mg PEG BID [facility] Last Admin: 08/16/17 10:18 Dose: 3.125 mg Clopidogrel Bisulfate (Plavix) 75 mg PEG DAILY [facility] Last Admin: 08/16/17 10:19 Dose: 75 mg Emollient Ointment (Vaseline Oint) 5 gm TOP DAILY PRN PRN Reason: Dry skin Last Admin: 08/14/17 17:18 Dose: 5 gm Enoxaparin Sodium (Lovenox) 40 mg SC DAILY [facility] Last Admin: 08/16/17 10:19 Dose: 40 mg Famotidine (Pepcid) 20 mg PEG DAILY [facility] Last Admin: 08/16/17 10:19 Dose: 20 mg Finasteride (Proscar) 5 mg PEG DAILY [facility] Last Admin: 08/16/17 10:20 Dose: 5 mg Levetiracetam (Keppra) 500 mg PEG BID [facility] Last Admin: 08/16/17 10:19 Dose: 500 mg Saccharomyces Boulardii (Florastor) 250 mg PEG DAILY [facility] Last Admin: 08/16/17 10:18 Dose: 250 mg Scopolamine (Transderm-Scop) 1 patch TD Q3D [facility] Last Admin: 08/15/17 21:39 Dose: 1 patch Tamsulosin HCl (Flomax) 0.4 mg PEG DAILY [facility] Last Admin: 08/16/17 10:18 Dose: 0.4 mg Vitamin A (Vitamin A & D Oint Ud Foilpak) 1 ea TOP BID [facility] Last Admin: 08/16/17 10:21 Dose: 1 ea - Labs Labs: 08/10/17 09:01 08/10/17 09:01 PT 10.6 SECONDS (9.7-12.2) 11/24/15 14:10 INR 1.0 11/24/15 14:10 APTT 25 SECONDS (21-34) 11/24/15 14:10 Assessment and Plan (1) Prophylactic measure Status: Acute (2) Anoxic encephalopathy Status: Chronic (3) STEMI (ST elevation myocardial infarction) Status: Acute (4) Cardiac arrest Status: Acute (5) Seizures Status: Acute (6) Respiratory failure Status: Chronic Attending/Attestation - Attestation I have personally seen and examined this patient.: Yes I have fully participated in the care of the patient.: Yes I have reviewed all pertinent clinical information, including history, physical exam and plan: Yes Notes (Text): 08/16/17 11:20 Medical Attending: No change in situation from before Amandeep Chavis
[2017-08-16] MEDS: Saccharomyces Boulardi 250 mg Cap PEG SCH (10:18)
[2017-08-16] MEDS: Enoxaparin 40 mg Syringe SC SCH (10:19)
[2017-08-16] MEDS: levETIRAcetam 100 mg/ml (5ml) Oral Syringe PEG SCH ×2 (10:19→17:48)
[2017-08-16] MEDS: Vitamins A & D Oint UD Foilpak TOP SCH ×2 (10:21→18:00)
[2017-08-17 06:37] LABS: BASO # 0.1 K/uL (0.0-0.2); BASO % 0.9 % (0.0-2.0); EOS # 0.5 K/uL (0.0-0.7); EOS % 6.2 % (0.0-4.0); HEMOGLOBIN 11.6 g/dL (12.0-18.0); LYMPH # 2.4 K/uL (1.0-4.3); LYMPH % 29.9 % (20.0-40.0); MEAN CELL VOLUME 87.7 fL (80.0-94.0); MEAN CORPUSCULAR HEMOGLOBIN 28.8 pg (27.0-31.0); MEAN CORPUSCULAR HGB CONC 32.9 g/dL (33.0-37.0); MEAN PLATELET VOLUME 9.2 fL (7.2-11.7); MONO % 12.8 % (0.0-10.0); NEUT % 50.2 % (50.0-75.0); NRBC % 0.1 % (0.0-2.0); RBC 4.03 Mil/uL (4.40-5.90); RED CELL DISTRIBUTION WIDTH 15.8 % (11.5-14.5); WHITE BLOOD COUNT 8.1 K/uL (4.8-10.8)
[2017-08-17 06:57] LABS: ALB/GLOB RATIO 0.8 (1.0-2.1); ALBUMIN 3.6 g/dL (3.5-5.0); ALT/SGPT 48 U/L (21-72); AST/SGOT 26 U/L (17-59); BLOOD UREA NITROGEN 14 mg/dL (9-20); GFR NON-AFRICAN AMERICAN > 60
[2017-08-17] MEDS: Acetylcysteine 20% Inhal Soln (4ml) INH SCH ×3 (08:40→23:48)
[2017-08-17] MEDS: Albuterol-Ipratrop 3 mg / 0.5 (3 ml) UD INH SCH ×3 (08:40→23:48)
--- NOTE | 2017-08-17 09:14 | CP.PCM.PN ---
<Tanya Campos - Last Filed: 08/17/17 09:12> Subjective - Date & Time of Evaluation Date of Evaluation: 08/17/17 Time of Evaluation: 08:00 - Subjective Subjective: Medicine Note for Dr. Ying, Patient seen and examined at bedside. ROS unattainable due to anoxic brain injury. Objective - Vital Signs/Intake and Output Vital Signs (last 24 hours): Temp Pulse Resp BP Pulse Ox 98.2 F 71 20 112/75 100 08/17/17 00:00 08/17/17 00:00 08/17/17 00:00 08/17/17 00:00 08/17/17 00:00 Intake and Output: 08/17/17 08/17/17 06:59 18:59 Intake Total 1560 Output Total 800 Balance 760 - Medications Medications: Current Medications Acetylcysteine (Acetylcysteine 20%) 4 ml INH RQ8 [facility] Last Admin: 08/17/17 08:40 Dose: 4 ml Albuterol/Ipratropium (Duoneb 3 Mg/0.5 Mg (3 Ml) Ud) 3 ml INH RQ8 [facility] Last Admin: 08/17/17 08:40 Dose: 3 ml Aspirin (Aspirin Chewable) 81 mg PEG DAILY [facility] Last Admin: 08/16/17 10:17 Dose: 81 mg Bethanechol Chloride (Urecholine) 50 mg PEG TID [facility] Last Admin: 08/16/17 17:48 Dose: 50 mg Carvedilol (Coreg) 3.125 mg PEG BID [facility] Last Admin: 08/16/17 18:00 Dose: 3.125 mg Clopidogrel Bisulfate (Plavix) 75 mg PEG DAILY [facility] Last Admin: 08/16/17 10:19 Dose: 75 mg Emollient Ointment (Vaseline Oint) 5 gm TOP DAILY PRN PRN Reason: Dry skin Last Admin: 08/14/17 17:18 Dose: 5 gm Famotidine (Pepcid) 20 mg PEG DAILY [facility] Last Admin: 08/16/17 10:19 Dose: 20 mg Finasteride (Proscar) 5 mg PEG DAILY [facility] Last Admin: 08/16/17 10:20 Dose: 5 mg Levetiracetam (Keppra) 500 mg PEG BID [facility] Last Admin: 08/16/17 17:48 Dose: 500 mg Saccharomyces Boulardii (Florastor) 250 mg PEG DAILY [facility] Last Admin: 08/16/17 10:18 Dose: 250 mg Scopolamine (Transderm-Scop) 1 patch TD Q3D [facility] Last Admin: 08/15/17 21:39 Dose: 1 patch Tamsulosin HCl (Flomax) 0.4 mg PEG DAILY [facility] Last Admin: 08/16/17 10:18 Dose: 0.4 mg Vitamin A (Vitamin A & D Oint Ud Foilpak) 1 ea TOP BID [facility] Last Admin: 08/16/17 18:00 Dose: 1 ea - Labs Labs: 08/17/17 06:24 08/17/17 06:24 PT 10.6 SECONDS (9.7-12.2) 11/24/15 14:10 INR 1.0 11/24/15 14:10 APTT 25 SECONDS (21-34) 11/24/15 14:10 - Constitutional Appears: No Acute Distress - Head Exam Head Exam: NORMAL INSPECTION, NORMOCEPHALIC - Eye Exam Eye Exam: EOMI, Normal appearance, PERRL Pupil Exam: NORMAL ACCOMODATION - ENT Exam ENT Exam: Mucous Membranes Dry Additional comments: Trach collar in place - Respiratory Exam Respiratory Exam: Decreased Breath Sounds, NORMAL BREATHING PATTERN - Cardiovascular Exam Cardiovascular Exam: REGULAR RHYTHM - GI/Abdominal Exam GI & Abdominal Exam: Soft, Normal Bowel Sounds. absent: Distended, Tenderness Additional comments: PEG tube in place - Extremities Exam Additional comments: Prevalon boots in place - Neurological Exam Neurological Exam: Awake - Skin Skin Exam: Dry, Intact, Normal Color, Warm Assessment and Plan - Assessment and Plan (Free Text) Plan: 1.) Anoxic encephalopathy s/p cardiac arrest in 05/2015 no acute changes Pt has non spontaneous movements. Continue tube feeds- goal of 60ml/hr, feedings held at night due to fluid overload 2.) Respiratory failure Trach in place, continue daily monitoring for secretions. No change in management at this time. Continue with aggressive suctioning multiple times a day per respiratory therapist. Monitor for signs of respiratory distress Thick secretions Duoneb 3ml INH Q6 and Mucomyst 4ml INH Q6H Scopolamine 1 patch TD Q3D [facility] Repeat CXR on 05/28/17: linear increased consolidative changes in the right mid- lung zone and left lung base which may represent atelectasis and/or infiltrate. Questionable trace left pleural effusion. moderate venous congestion. cardiomegaly. degenerative changes in the spine and shoulders 3.) Leukocytosis secondary to UTI. Resolved 08/10: WBC 8.2 afebrile Meropenem (started 07/22) - per Dr. Armstrong continue for a total of 2 weeks - Discontinued 08/05/17 ID consult: Dr. Armstrong --> help appreciated 4.) Urinary retention 07/21: NS stopped because tube feeds restarted 07/20: Urine dark in color, monitor, continue NS at 50 ml per hour 07/07/17: Catheter flushed, patient output approx. 500mL within one hour post flush. 06/27/17: Continue bladder massages to aid in voiding. 06/25/17: Patient voids with movement. Continue bladder massages to aid in voiding. 06/23/17: Patient will need to have daily bladder massage to allow for complete voiding 06/17/17: Nursing communication placed in: straight catherization with bladder scan> 100ml 06/08: urinary retention yesterday, was given 40mg lasix iv and patient was able to urinate through condom baker Take note condom cath not always securely in place so Is and Os are approximate as patient does wet bed Ordered- new condom catheter on 05/22/17 Flomax 0.4mg PEG daily Proscar 5mg PEG daily continue Bethanecol 50mg PEG TID- started after persistent retention and found to be effective. monitor I's and O's - I/O: 780/350 Check bladder scan for residual urine three times weekly 5.) Hypokalemia K+ on 08/10: 4.2 6.) Sacral ulcer Healed Cont with offloading/cushioning/turning Continue frequent turning, protective ointment and skin checks. 7.) History of coronary artery disease s/p cardiac stents on 06/13/15 Cont ASA 81mg via PEG daily Cont Coreg 3.125mg PEG BID Cont Plavix 75 mg PEG daily 8.) Seizures Continue Keppra 500mg PEG BID for seizure prophylaxis Monitor for activity 9.) Lower extremity edema Improved SCDs in place Pressure ulcer boots on b/l Continue to monitor 10.) Prophylactic measure Pepcid 20 mg PEG BID Lovenox 40mg SC daily SCDs and offloading boots continue to turn and reposition q2hrs Continue to monitor medication administrations and clinical presentation weekly labs. vasoline ointment applied to feet prn to prevent hyperkeratosis Please hold feeding from 10pm-6am, placed into nursing communication Vitamin A & D for lips DW Beth Ruiz DO, PGY-1 <Donnell Ying M - Last Filed: 08/17/17 17:38> Objective - Vital Signs/Intake and Output Vital Signs (last 24 hours): Temp Pulse Resp BP Pulse Ox 97 F L 76 20 119/76 97 08/17/17 10:00 08/17/17 10:00 08/17/17 10:00 08/17/17 10:00 08/17/17 10:00 Intake and Output: 08/17/17 08/17/17 06:59 18:59 Intake Total 1560 780 Output Total 800 800 Balance 760 -20 - Medications Medications: Current Medications Acetylcysteine (Acetylcysteine 20%) 4 ml INH RQ8 [facility] Last Admin: 08/17/17 17:11 Dose: Not Given Albuterol/Ipratropium (Duoneb 3 Mg/0.5 Mg (3 Ml) Ud) 3 ml INH RQ8 [facility] Last Admin: 08/17/17 17:10 Dose: 3 ml Aspirin (Aspirin Chewable) 81 mg PEG DAILY [facility] Last Admin: 08/17/17 09:27 Dose: 81 mg Bethanechol Chloride (Urecholine) 50 mg PEG TID [facility] Last Admin: 08/17/17 17:23 Dose: 50 mg Carvedilol (Coreg) 3.125 mg PEG BID [facility] Last Admin: 08/17/17 17:24 Dose: 3.125 mg Clopidogrel Bisulfate (Plavix) 75 mg PEG DAILY [facility] Last Admin: 08/17/17 09:28 Dose: 75 mg Emollient Ointment (Vaseline Oint) 5 gm TOP DAILY PRN PRN Reason: Dry skin Last Admin: 08/17/17 17:24 Dose: 5 gm Famotidine (Pepcid) 20 mg PEG DAILY [facility] Last Admin: 08/17/17 09:28 Dose: 20 mg Finasteride (Proscar) 5 mg PEG DAILY [facility] Last Admin: 08/17/17 09:28 Dose: 5 mg Levetiracetam (Keppra) 500 mg PEG BID [facility] Last Admin: 08/17/17 17:24 Dose: 500 mg Saccharomyces Boulardii (Florastor) 250 mg PEG DAILY [facility] Last Admin: 08/17/17 09:27 Dose: 250 mg Scopolamine (Transderm-Scop) 1 patch TD Q3D [facility] Last Admin: 08/15/17 21:39 Dose: 1 patch Tamsulosin HCl (Flomax) 0.4 mg PEG DAILY [facility] Last Admin: 08/17/17 09:28 Dose: 0.4 mg Vitamin A (Vitamin A & D Oint Ud Foilpak) 1 ea TOP BID [facility] Last Admin: 08/17/17 17:26 Dose: 1 ea - Labs Labs: 08/17/17 06:24 08/17/17 06:24 PT 10.6 SECONDS (9.7-12.2) 11/24/15 14:10 INR 1.0 11/24/15 14:10 APTT 25 SECONDS (21-34) 11/24/15 14:10 Attending/Attestation - Attestation I have personally seen and examined this patient.: Yes I have fully participated in the care of the patient.: Yes I have reviewed all pertinent clinical information, including history, physical exam and plan: Yes Notes (Text): 08/17/17 17:38 Patient was seen and examined at bedside with the resident Patient is no change in clinical condition Continue current medical management Awaiting placement Discussed the plan of care with the resident and agree with the assessment and plan documented.
[2017-08-17] MEDS: Vitamins A & D Oint UD Foilpak TOP SCH ×2 (09:27→17:26)
[2017-08-17] MEDS: Saccharomyces Boulardi 250 mg Cap PEG SCH (09:27)
[2017-08-17] MEDS: levETIRAcetam 100 mg/ml (5ml) Oral Syringe PEG SCH ×2 (09:28→17:24)
[2017-08-17] MEDS: Petrolatum Oint Foilpak (5 gm) TOP PRN (17:24)
--- NOTE | 2017-08-18 07:04 | CP.PCM.PN ---
<Tanya Campos - Last Filed: 08/18/17 07:02> Subjective - Date & Time of Evaluation Date of Evaluation: 08/18/17 Time of Evaluation: 07:00 - Subjective Subjective: Medicine Note for Dr. Ying Patient seen and examined at bedside. ROS unattainable due to anoxic brain injury. Objective - Vital Signs/Intake and Output Vital Signs (last 24 hours): Temp Pulse Resp BP Pulse Ox 98.5 F 88 20 112/77 99 08/18/17 00:05 08/18/17 00:05 08/18/17 00:05 08/18/17 00:05 08/18/17 00:05 Intake and Output: 08/18/17 08/18/17 06:59 18:59 Intake Total 1560 Output Total 800 Balance 760 - Medications Medications: Current Medications Acetylcysteine (Acetylcysteine 20%) 4 ml INH RQ8 [facility] Last Admin: 08/17/17 23:48 Dose: 4 ml Albuterol/Ipratropium (Duoneb 3 Mg/0.5 Mg (3 Ml) Ud) 3 ml INH RQ8 [facility] Last Admin: 08/17/17 23:48 Dose: 3 ml Aspirin (Aspirin Chewable) 81 mg PEG DAILY [facility] Last Admin: 08/17/17 09:27 Dose: 81 mg Bethanechol Chloride (Urecholine) 50 mg PEG TID [facility] Last Admin: 08/17/17 17:23 Dose: 50 mg Carvedilol (Coreg) 3.125 mg PEG BID [facility] Last Admin: 08/17/17 17:24 Dose: 3.125 mg Clopidogrel Bisulfate (Plavix) 75 mg PEG DAILY [facility] Last Admin: 08/17/17 09:28 Dose: 75 mg Emollient Ointment (Vaseline Oint) 5 gm TOP DAILY PRN PRN Reason: Dry skin Last Admin: 08/17/17 17:24 Dose: 5 gm Famotidine (Pepcid) 20 mg PEG DAILY [facility] Last Admin: 08/17/17 09:28 Dose: 20 mg Finasteride (Proscar) 5 mg PEG DAILY [facility] Last Admin: 08/17/17 09:28 Dose: 5 mg Levetiracetam (Keppra) 500 mg PEG BID [facility] Last Admin: 08/17/17 17:24 Dose: 500 mg Saccharomyces Boulardii (Florastor) 250 mg PEG DAILY [facility] Last Admin: 08/17/17 09:27 Dose: 250 mg Scopolamine (Transderm-Scop) 1 patch TD Q3D [facility] Last Admin: 08/15/17 21:39 Dose: 1 patch Tamsulosin HCl (Flomax) 0.4 mg PEG DAILY [facility] Last Admin: 08/17/17 09:28 Dose: 0.4 mg Vitamin A (Vitamin A & D Oint Ud Foilpak) 1 ea TOP BID [facility] Last Admin: 08/17/17 17:26 Dose: 1 ea - Labs Labs: 08/17/17 06:24 08/17/17 06:24 PT 10.6 SECONDS (9.7-12.2) 11/24/15 14:10 INR 1.0 11/24/15 14:10 APTT 25 SECONDS (21-34) 11/24/15 14:10 - Constitutional Appears: No Acute Distress - Head Exam Head Exam: NORMAL INSPECTION, NORMOCEPHALIC - Eye Exam Eye Exam: EOMI, Normal appearance, PERRL Pupil Exam: NORMAL ACCOMODATION - ENT Exam Additional comments: Trach collar in place - Respiratory Exam Respiratory Exam: Clear to Ausculation Bilateral, NORMAL BREATHING PATTERN. absent: Wheezes - Cardiovascular Exam Cardiovascular Exam: REGULAR RHYTHM - GI/Abdominal Exam GI & Abdominal Exam: Soft, Normal Bowel Sounds Additional comments: PEG tube in place - Exam Exam: absent: Bladder Distension - Extremities Exam Extremities Exam: Normal Inspection. absent: Pedal Edema, Tenderness Additional comments: Prevalon boots in place - Neurological Exam Neurological Exam: Awake - Skin Skin Exam: Dry, Intact, Normal Color, Warm Assessment and Plan - Assessment and Plan (Free Text) Plan: Anoxic encephalopathy s/p cardiac arrest in 05/2015 no acute changes Pt has non spontaneous movements. Continue tube feeds- goal of 60ml/hr, feedings held at night due to fluid overload Respiratory failure Trach in place, continue daily monitoring for secretions. No change in management at this time. Continue with aggressive suctioning multiple times a day per respiratory therapist. Monitor for signs of respiratory distress Thick secretions Duoneb 3ml INH Q6 and Mucomyst 4ml INH Q6H Scopolamine 1 patch TD Q3D [facility] Repeat CXR on 05/28/17: linear increased consolidative changes in the right mid- lung zone and left lung base which may represent atelectasis and/or infiltrate. Questionable trace left pleural effusion. moderate venous congestion. cardiomegaly. degenerative changes in the spine and shoulders Leukocytosis secondary to UTI. Resolved 08/10: WBC 8.2 afebrile Meropenem (started 07/22) - per Dr. Armstrong continue for a total of 2 weeks - Discontinued 08/05/17 ID consult: Dr. Armstrong --> help appreciated Urinary retention 07/21: NS stopped because tube feeds restarted 07/20: Urine dark in color, monitor, continue NS at 50 ml per hour 07/07/17: Catheter flushed, patient output approx. 500mL within one hour post flush. 06/27/17: Continue bladder massages to aid in voiding. 06/25/17: Patient voids with movement. Continue bladder massages to aid in voiding. 06/23/17: Patient will need to have daily bladder massage to allow for complete voiding 06/17/17: Nursing communication placed in: straight catherization with bladder scan> 100ml 06/08: urinary retention yesterday, was given 40mg lasix iv and patient was able to urinate through condom baker Take note condom cath not always securely in place so Is and Os are approximate as patient does wet bed Ordered- new condom catheter on 05/22/17 Flomax 0.4mg PEG daily Proscar 5mg PEG daily continue Bethanecol 50mg PEG TID- started after persistent retention and found to be effective. monitor I's and O's - I/O: 780/350 Check bladder scan for residual urine three times weekly Hypokalemia K+ on 08/10: 4.2 Sacral ulcer Healed Cont with offloading/cushioning/turning Continue frequent turning, protective ointment and skin checks. History of coronary artery disease s/p cardiac stents on 06/13/15 Cont ASA 81mg via PEG daily Cont Coreg 3.125mg PEG BID Cont Plavix 75 mg PEG daily Seizures Continue Keppra 500mg PEG BID for seizure prophylaxis Monitor for activity Lower extremity edema Improved SCDs in place Pressure ulcer boots on b/l Continue to monitor Prophylactic measure Pepcid 20 mg PEG BID Lovenox 40mg SC daily SCDs and offloading boots continue to turn and reposition q2hrs Continue to monitor medication administrations and clinical presentation weekly labs. vasoline ointment applied to feet prn to prevent hyperkeratosis Please hold feeding from 10pm-6am, placed into nursing communication Vitamin A & D for lips DW Beth Ruiz DO, PGY-1 <Donnell Ying M - Last Filed: 08/18/17 17:57> Objective - Vital Signs/Intake and Output Vital Signs (last 24 hours): Temp Pulse Resp BP Pulse Ox 98.3 F 85 18 108/78 97 08/18/17 16:00 08/18/17 16:00 08/18/17 16:00 08/18/17 16:00 08/18/17 16:00 Intake and Output: 08/18/17 08/18/17 06:59 18:59 Intake Total 1560 680 Output Total 800 600 Balance 760 80 - Medications Medications: Current Medications Acetylcysteine (Acetylcysteine 20%) 4 ml INH RQ8 [facility] Last Admin: 08/18/17 16:51 Dose: 4 ml Albuterol/Ipratropium (Duoneb 3 Mg/0.5 Mg (3 Ml) Ud) 3 ml INH RQ8 [facility] Last Admin: 08/18/17 16:51 Dose: 3 ml Aspirin (Aspirin Chewable) 81 mg PEG DAILY [facility] Last Admin: 08/18/17 09:16 Dose: 81 mg Bethanechol Chloride (Urecholine) 50 mg PEG TID [facility] Last Admin: 08/18/17 17:22 Dose: 50 mg Carvedilol (Coreg) 3.125 mg PEG BID [facility] Last Admin: 08/18/17 17:22 Dose: 3.125 mg Clopidogrel Bisulfate (Plavix) 75 mg PEG DAILY [facility] Last Admin: 08/18/17 09:16 Dose: 75 mg Emollient Ointment (Vaseline Oint) 5 gm TOP DAILY PRN PRN Reason: Dry skin Last Admin: 08/17/17 17:24 Dose: 5 gm Famotidine (Pepcid) 20 mg PEG DAILY [facility] Last Admin: 08/18/17 09:16 Dose: 20 mg Finasteride (Proscar) 5 mg PEG DAILY [facility] Last Admin: 08/18/17 09:15 Dose: 5 mg Levetiracetam (Keppra) 500 mg PEG BID [facility] Last Admin: 08/18/17 17:22 Dose: 500 mg Saccharomyces Boulardii (Florastor) 250 mg PEG DAILY [facility] Last Admin: 08/18/17 09:15 Dose: 250 mg Scopolamine (Transderm-Scop) 1 patch TD Q3D [facility] Last Admin: 08/15/17 21:39 Dose: 1 patch Tamsulosin HCl (Flomax) 0.4 mg PEG DAILY [facility] Last Admin: 08/18/17 09:16 Dose: 0.4 mg Vitamin A (Vitamin A & D Oint Ud Foilpak) 1 ea TOP BID [facility] Last Admin: 08/18/17 09:16 Dose: 1 ea - Labs Labs: 08/17/17 06:24 08/17/17 06:24 PT 10.6 SECONDS (9.7-12.2) 11/24/15 14:10 INR 1.0 11/24/15 14:10 APTT 25 SECONDS (21-34) 11/24/15 14:10 Attending/Attestation - Attestation I have personally seen and examined this patient.: Yes I have fully participated in the care of the patient.: Yes I have reviewed all pertinent clinical information, including history, physical exam and plan: Yes Notes (Text): 08/18/17 17:57 Patient was seen and examined at bedside with the resident This is no change in clinical condition Continue current medical management Discussed plan of care with the resident and agree with the assessment and plan documented.
[2017-08-18] MEDS: Albuterol-Ipratrop 3 mg / 0.5 (3 ml) UD INH SCH ×2 (08:54→16:51)
[2017-08-18] MEDS: Acetylcysteine 20% Inhal Soln (4ml) INH SCH ×2 (08:54→16:51)
[2017-08-18] MEDS: Saccharomyces Boulardi 250 mg Cap PEG SCH (09:15)
[2017-08-18] MEDS: Vitamins A & D Oint UD Foilpak TOP SCH ×2 (09:16→19:00)
[2017-08-18] MEDS: levETIRAcetam 100 mg/ml (5ml) Oral Syringe PEG SCH ×2 (09:16→17:22)
[2017-08-19] MEDS: Acetylcysteine 20% Inhal Soln (4ml) INH SCH ×3 (01:10→17:52)
[2017-08-19] MEDS: Albuterol-Ipratrop 3 mg / 0.5 (3 ml) UD INH SCH ×3 (01:10→17:52)
--- NOTE | 2017-08-19 06:09 | CP.PCM.PN ---
<Tanya Campos - Last Filed: 08/19/17 06:08> Subjective - Date & Time of Evaluation Date of Evaluation: 08/19/17 Time of Evaluation: 06:00 - Subjective Subjective: Medicine Note for Dr. Ying Patient seen and examined at bedside. ROS unattainable due to anoxic brain injury. Objective - Vital Signs/Intake and Output Vital Signs (last 24 hours): Temp Pulse Resp BP Pulse Ox 97.2 F L 86 20 126/81 97 08/18/17 23:39 08/18/17 23:39 08/18/17 23:39 08/18/17 23:39 08/18/17 23:39 Intake and Output: 08/18/17 08/19/17 18:59 06:59 Intake Total 680 830 Output Total 600 450 Balance 80 380 - Medications Medications: Current Medications Acetylcysteine (Acetylcysteine 20%) 4 ml INH RQ8 [facility] Last Admin: 08/19/17 01:10 Dose: 4 ml Albuterol/Ipratropium (Duoneb 3 Mg/0.5 Mg (3 Ml) Ud) 3 ml INH RQ8 [facility] Last Admin: 08/19/17 01:10 Dose: 3 ml Aspirin (Aspirin Chewable) 81 mg PEG DAILY [facility] Last Admin: 08/18/17 09:16 Dose: 81 mg Bethanechol Chloride (Urecholine) 50 mg PEG TID [facility] Last Admin: 08/18/17 17:22 Dose: 50 mg Carvedilol (Coreg) 3.125 mg PEG BID [facility] Last Admin: 08/18/17 17:22 Dose: 3.125 mg Clopidogrel Bisulfate (Plavix) 75 mg PEG DAILY [facility] Last Admin: 08/18/17 09:16 Dose: 75 mg Emollient Ointment (Vaseline Oint) 5 gm TOP DAILY PRN PRN Reason: Dry skin Last Admin: 08/17/17 17:24 Dose: 5 gm Famotidine (Pepcid) 20 mg PEG DAILY [facility] Last Admin: 08/18/17 09:16 Dose: 20 mg Finasteride (Proscar) 5 mg PEG DAILY [facility] Last Admin: 08/18/17 09:15 Dose: 5 mg Levetiracetam (Keppra) 500 mg PEG BID [facility] Last Admin: 08/18/17 17:22 Dose: 500 mg Saccharomyces Boulardii (Florastor) 250 mg PEG DAILY [facility] Last Admin: 08/18/17 09:15 Dose: 250 mg Scopolamine (Transderm-Scop) 1 patch TD Q3D [facility] Last Admin: 08/18/17 20:40 Dose: 1 patch Tamsulosin HCl (Flomax) 0.4 mg PEG DAILY [facility] Last Admin: 08/18/17 09:16 Dose: 0.4 mg Vitamin A (Vitamin A & D Oint Ud Foilpak) 1 ea TOP BID [facility] Last Admin: 08/18/17 19:00 Dose: 1 ea - Labs Labs: 08/17/17 06:24 08/17/17 06:24 PT 10.6 SECONDS (9.7-12.2) 11/24/15 14:10 INR 1.0 11/24/15 14:10 APTT 25 SECONDS (21-34) 11/24/15 14:10 - Additional Findings Additional findings: - Constitutional Appears: No Acute Distress - Head Exam Head Exam: NORMAL INSPECTION, NORMOCEPHALIC - Eye Exam Eye Exam: EOMI, Normal appearance, PERRL Pupil Exam: NORMAL ACCOMODATION - ENT Exam Additional comments: Trach collar in place - Respiratory Exam Respiratory Exam: Clear to Ausculation Bilateral, NORMAL BREATHING PATTERN. absent: Wheezes - Cardiovascular Exam Cardiovascular Exam: REGULAR RHYTHM - GI/Abdominal Exam GI & Abdominal Exam: Soft, Normal Bowel Sounds Additional comments: PEG tube in place - Exam Exam: absent: Bladder Distension - Extremities Exam Extremities Exam: Normal Inspection. absent: Pedal Edema, Tenderness Additional comments: Prevalon boots in place - Neurological Exam Neurological Exam: Awake - Skin Skin Exam: Dry, Intact, Normal Color, Warm Assessment and Plan - Assessment and Plan (Free Text) Plan: Anoxic encephalopathy s/p cardiac arrest in 05/2015 no acute changes Pt has non spontaneous movements. Continue tube feeds- goal of 60ml/hr, feedings held at night due to fluid overload Respiratory failure Trach in place, continue daily monitoring for secretions. No change in management at this time. Continue with aggressive suctioning multiple times a day per respiratory therapist. Monitor for signs of respiratory distress Thick secretions Duoneb 3ml INH Q6 and Mucomyst 4ml INH Q6H Scopolamine 1 patch TD Q3D [facility] Repeat CXR on 05/28/17: linear increased consolidative changes in the right mid- lung zone and left lung base which may represent atelectasis and/or infiltrate. Questionable trace left pleural effusion. moderate venous congestion. cardiomegaly. degenerative changes in the spine and shoulders Leukocytosis secondary to UTI. Resolved 08/10: WBC 8.2 afebrile Meropenem (started 07/22) - per Dr. Armstrong continue for a total of 2 weeks - Discontinued 08/05/17 ID consult: Dr. Armstrong --> help appreciated Urinary retention 07/21: NS stopped because tube feeds restarted 07/20: Urine dark in color, monitor, continue NS at 50 ml per hour 07/07/17: Catheter flushed, patient output approx. 500mL within one hour post flush. 06/27/17: Continue bladder massages to aid in voiding. 06/25/17: Patient voids with movement. Continue bladder massages to aid in voiding. 06/23/17: Patient will need to have daily bladder massage to allow for complete voiding 06/17/17: Nursing communication placed in: straight catherization with bladder scan> 100ml 06/08: urinary retention yesterday, was given 40mg lasix iv and patient was able to urinate through condom baker Take note condom cath not always securely in place so Is and Os are approximate as patient does wet bed Ordered- new condom catheter on 05/22/17 Flomax 0.4mg PEG daily Proscar 5mg PEG daily continue Bethanecol 50mg PEG TID- started after persistent retention and found to be effective. monitor I's and O's - I/O: 780/350 Check bladder scan for residual urine three times weekly Hypokalemia K+ on 08/10: 4.2 Sacral ulcer Healed Cont with offloading/cushioning/turning Continue frequent turning, protective ointment and skin checks. History of coronary artery disease s/p cardiac stents on 06/13/15 Cont ASA 81mg via PEG daily Cont Coreg 3.125mg PEG BID Cont Plavix 75 mg PEG daily Seizures Continue Keppra 500mg PEG BID for seizure prophylaxis Monitor for activity Lower extremity edema Improved SCDs in place Pressure ulcer boots on b/l Continue to monitor Prophylactic measure Pepcid 20 mg PEG BID Lovenox 40mg SC daily SCDs and offloading boots continue to turn and reposition q2hrs Continue to monitor medication administrations and clinical presentation weekly labs. vasoline ointment applied to feet prn to prevent hyperkeratosis Please hold feeding from 10pm-6am, placed into nursing communication Vitamin A & D for lips DW Beth Ruiz DO, PGY-1 <Donnell Ying M - Last Filed: 08/31/17 21:42> Objective - Vital Signs/Intake and Output Vital Signs (last 24 hours): Temp Pulse Resp BP Pulse Ox 97.3 F L 76 20 130/82 95 08/31/17 16:00 08/31/17 16:00 08/31/17 16:00 08/31/17 16:00 08/31/17 16:00 Intake and Output: 08/31/17 09/01/17 18:59 06:59 Intake Total 480 Output Total 550 Balance -70 - Medications Medications: Current Medications Acetylcysteine (Acetylcysteine 20%) 4 ml INH RQ8 [facility] Last Admin: 08/31/17 19:55 Dose: 4 ml Albuterol/Ipratropium (Duoneb 3 Mg/0.5 Mg (3 Ml) Ud) 3 ml INH RQ8 [facility] Last Admin: 08/31/17 19:55 Dose: 3 ml Aspirin (Aspirin Chewable) 81 mg PEG DAILY [facility] Last Admin: 08/31/17 09:55 Dose: 81 mg Bethanechol Chloride (Urecholine) 50 mg PEG TID [facility] Last Admin: 08/31/17 17:31 Dose: 50 mg Carvedilol (Coreg) 3.125 mg PEG BID [facility] Last Admin: 08/31/17 17:31 Dose: 3.125 mg Clopidogrel Bisulfate (Plavix) 75 mg PEG DAILY [facility] Last Admin: 08/31/17 09:55 Dose: 75 mg Emollient Ointment (Vaseline Oint) 5 gm TOP DAILY PRN PRN Reason: Dry skin Last Admin: 08/31/17 09:56 Dose: 5 gm Enoxaparin Sodium (Lovenox) 40 mg SC DAILY [facility] Last Admin: 08/31/17 09:56 Dose: 40 mg Famotidine (Pepcid) 20 mg PEG DAILY [facility] Last Admin: 08/31/17 09:56 Dose: 20 mg Finasteride (Proscar) 5 mg PEG DAILY [facility] Last Admin: 08/31/17 09:56 Dose: 5 mg Levetiracetam (Keppra) 500 mg PEG BID [facility] Last Admin: 08/31/17 17:30 Dose: 500 mg Saccharomyces Boulardii (Florastor) 250 mg PEG DAILY [facility] Last Admin: 08/31/17 09:55 Dose: 250 mg Scopolamine (Transderm-Scop) 1 patch TD Q3D [facility] Last Admin: 08/31/17 09:54 Dose: 1 patch Tamsulosin HCl (Flomax) 0.4 mg PEG DAILY [facility] Last Admin: 08/31/17 09:55 Dose: 0.4 mg Vitamin A (Vitamin A & D Oint Ud Foilpak) 1 ea TOP BID [facility] Last Admin: 08/31/17 17:31 Dose: 1 ea - Labs Labs: 08/31/17 07:11 08/31/17 06:25 PT 10.6 SECONDS (9.7-12.2) 11/24/15 14:10 INR 1.0 11/24/15 14:10 APTT 25 SECONDS (21-34) 11/24/15 14:10 Attending/Attestation - Attestation I have personally seen and examined this patient.: Yes I have fully participated in the care of the patient.: Yes I have reviewed all pertinent clinical information, including history, physical exam and plan: Yes Notes (Text): 08/31/17 21:31 patient was seen and examined at bedside with the resident. I discussed the plan of care with the resident I agree with the assessment and plan document
[2017-08-19] MEDS: levETIRAcetam 100 mg/ml (5ml) Oral Syringe PEG SCH ×2 (09:38→17:38)
[2017-08-19] MEDS: Vitamins A & D Oint UD Foilpak TOP SCH ×2 (09:38→17:38)
[2017-08-19] MEDS: Saccharomyces Boulardi 250 mg Cap PEG SCH (09:39)
[2017-08-20] MEDS: Albuterol-Ipratrop 3 mg / 0.5 (3 ml) UD INH SCH ×3 (00:48→15:45)
[2017-08-20] MEDS: Acetylcysteine 20% Inhal Soln (4ml) INH SCH ×3 (00:48→15:45)
--- NOTE | 2017-08-20 07:23 | CP.PCM.PN ---
<Tanya Campos - Last Filed: 08/20/17 08:06> Subjective - Date & Time of Evaluation Date of Evaluation: 08/20/17 Time of Evaluation: 07:00 - Subjective Subjective: Medicine Note for Dr. Rani Mercedes Patient seen and examined at bedside. ROS unattainable due to anoxic brain injury. Objective - Vital Signs/Intake and Output Vital Signs (last 24 hours): Temp Pulse Resp BP Pulse Ox 98.4 F 70 22 124/72 97 08/20/17 00:05 08/20/17 00:05 08/20/17 00:05 08/20/17 00:05 08/20/17 00:05 Intake and Output: 08/20/17 08/20/17 06:59 18:59 Intake Total 830 780 Output Total 500 500 Balance 330 280 - Medications Medications: Current Medications Acetylcysteine (Acetylcysteine 20%) 4 ml INH RQ8 [facility] Last Admin: 08/20/17 00:48 Dose: Not Given Albuterol/Ipratropium (Duoneb 3 Mg/0.5 Mg (3 Ml) Ud) 3 ml INH RQ8 [facility] Stop: 08/25/17 23:59 Last Admin: 08/20/17 00:48 Dose: 3 ml Aspirin (Aspirin Chewable) 81 mg PEG DAILY [facility] Last Admin: 08/19/17 09:38 Dose: 81 mg Bethanechol Chloride (Urecholine) 50 mg PEG TID [facility] Last Admin: 08/19/17 17:38 Dose: 50 mg Carvedilol (Coreg) 3.125 mg PEG BID [facility] Last Admin: 08/19/17 17:38 Dose: 3.125 mg Clopidogrel Bisulfate (Plavix) 75 mg PEG DAILY [facility] Last Admin: 08/19/17 09:38 Dose: 75 mg Emollient Ointment (Vaseline Oint) 5 gm TOP DAILY PRN PRN Reason: Dry skin Last Admin: 08/17/17 17:24 Dose: 5 gm Famotidine (Pepcid) 20 mg PEG DAILY [facility] Last Admin: 08/19/17 09:39 Dose: 20 mg Finasteride (Proscar) 5 mg PEG DAILY [facility] Last Admin: 08/19/17 09:38 Dose: 5 mg Levetiracetam (Keppra) 500 mg PEG BID [facility] Last Admin: 08/19/17 17:38 Dose: 500 mg Saccharomyces Boulardii (Florastor) 250 mg PEG DAILY [facility] Last Admin: 08/19/17 09:39 Dose: 250 mg Scopolamine (Transderm-Scop) 1 patch TD Q3D [facility] Last Admin: 08/18/17 20:40 Dose: 1 patch Tamsulosin HCl (Flomax) 0.4 mg PEG DAILY [facility] Last Admin: 08/19/17 09:38 Dose: 0.4 mg Vitamin A (Vitamin A & D Oint Ud Foilpak) 1 ea TOP BID [facility] Last Admin: 08/19/17 17:38 Dose: 1 ea - Labs Labs: 08/17/17 06:24 08/17/17 06:24 PT 10.6 SECONDS (9.7-12.2) 11/24/15 14:10 INR 1.0 11/24/15 14:10 APTT 25 SECONDS (21-34) 11/24/15 14:10 - Additional Findings Additional findings: - Additional Findings Additional findings: - Constitutional Appears: No Acute Distress - Head Exam Head Exam: NORMAL INSPECTION, NORMOCEPHALIC - Eye Exam Eye Exam: EOMI, Normal appearance, PERRL Pupil Exam: NORMAL ACCOMODATION - ENT Exam Additional comments: Trach collar in place - Respiratory Exam Respiratory Exam: Clear to Ausculation Bilateral, NORMAL BREATHING PATTERN. absent: Wheezes - Cardiovascular Exam Cardiovascular Exam: REGULAR RHYTHM - GI/Abdominal Exam GI & Abdominal Exam: Soft, Normal Bowel Sounds Additional comments: PEG tube in place - Exam Exam: absent: Bladder Distension - Extremities Exam Extremities Exam: Normal Inspection. absent: Pedal Edema, Tenderness Additional comments: Prevalon boots in place - Neurological Exam Neurological Exam: Awake - Skin Skin Exam: Dry, Intact, Normal Color, Warm Assessment and Plan - Assessment and Plan (Free Text) Plan: Anoxic encephalopathy s/p cardiac arrest in 05/2015 no acute changes Pt has non spontaneous movements. Continue tube feeds- goal of 60ml/hr, feedings held at night due to fluid overload Respiratory failure Trach in place, continue daily monitoring for secretions. No change in management at this time. Continue with aggressive suctioning multiple times a day per respiratory therapist. Monitor for signs of respiratory distress Thick secretions Duoneb 3ml INH Q6 and Mucomyst 4ml INH Q6H Scopolamine 1 patch TD Q3D [facility] Repeat CXR on 05/28/17: linear increased consolidative changes in the right mid- lung zone and left lung base which may represent atelectasis and/or infiltrate. Questionable trace left pleural effusion. moderate venous congestion. cardiomegaly. degenerative changes in the spine and shoulders Leukocytosis secondary to UTI. Resolved 08/10: WBC 8.2 afebrile Meropenem (started 07/22) - per Dr. Armstrong continue for a total of 2 weeks - Discontinued 08/05/17 ID consult: Dr. Armstrong --> help appreciated Urinary retention 07/21: NS stopped because tube feeds restarted 07/20: Urine dark in color, monitor, continue NS at 50 ml per hour 07/07/17: Catheter flushed, patient output approx. 500mL within one hour post flush. 06/27/17: Continue bladder massages to aid in voiding. 06/25/17: Patient voids with movement. Continue bladder massages to aid in voiding. 06/23/17: Patient will need to have daily bladder massage to allow for complete voiding 06/17/17: Nursing communication placed in: straight catherization with bladder scan> 100ml 06/08: urinary retention yesterday, was given 40mg lasix iv and patient was able to urinate through condom baker Take note condom cath not always securely in place so Is and Os are approximate as patient does wet bed Ordered- new condom catheter on 05/22/17 Flomax 0.4mg PEG daily Proscar 5mg PEG daily continue Bethanecol 50mg PEG TID- started after persistent retention and found to be effective. monitor I's and O's - I/O: 780/350 Check bladder scan for residual urine three times weekly Hypokalemia K+ on 08/10: 4.2 Sacral ulcer Healed Cont with offloading/cushioning/turning Continue frequent turning, protective ointment and skin checks. History of coronary artery disease s/p cardiac stents on 06/13/15 Cont ASA 81mg via PEG daily Cont Coreg 3.125mg PEG BID Cont Plavix 75 mg PEG daily Seizures Continue Keppra 500mg PEG BID for seizure prophylaxis Monitor for activity Lower extremity edema Improved SCDs in place Pressure ulcer boots on b/l Continue to monitor Prophylactic measure Pepcid 20 mg PEG BID Lovenox 40mg SC daily SCDs and offloading boots continue to turn and reposition q2hrs Continue to monitor medication administrations and clinical presentation weekly labs. vasoline ointment applied to feet prn to prevent hyperkeratosis Please hold feeding from 10pm-6am, placed into nursing communication Vitamin A & D for lips DW Dr. Rani Mercedes, Beth DE LA CRUZ, PGY-1 <Caden Mercedes - Last Filed: 08/20/17 20:00> Objective - Vital Signs/Intake and Output Vital Signs (last 24 hours): Temp Pulse Resp BP Pulse Ox 98.4 F 76 20 118/76 100 08/20/17 16:00 08/20/17 16:00 08/20/17 16:00 08/20/17 16:00 08/20/17 16:00 Intake and Output: 08/20/17 08/21/17 18:59 06:59 Intake Total 1560 Output Total 750 Balance 810 - Medications Medications: Current Medications Acetylcysteine (Acetylcysteine 20%) 4 ml INH RQ8 [facility] Last Admin: 08/20/17 07:31 Dose: Not Given Albuterol/Ipratropium (Duoneb 3 Mg/0.5 Mg (3 Ml) Ud) 3 ml INH RQ8 [facility] Stop: 08/25/17 23:59 Last Admin: 08/20/17 07:31 Dose: 3 ml Aspirin (Aspirin Chewable) 81 mg PEG DAILY [facility] Last Admin: 08/20/17 09:48 Dose: 81 mg Bethanechol Chloride (Urecholine) 50 mg PEG TID [facility] Last Admin: 08/20/17 18:41 Dose: 50 mg Carvedilol (Coreg) 3.125 mg PEG BID [facility] Last Admin: 08/20/17 18:41 Dose: 3.125 mg Clopidogrel Bisulfate (Plavix) 75 mg PEG DAILY [facility] Last Admin: 08/20/17 09:49 Dose: 75 mg Emollient Ointment (Vaseline Oint) 5 gm TOP DAILY PRN PRN Reason: Dry skin Last Admin: 08/20/17 18:40 Dose: 5 gm Famotidine (Pepcid) 20 mg PEG DAILY [facility] Last Admin: 08/20/17 09:49 Dose: 20 mg Finasteride (Proscar) 5 mg PEG DAILY [facility] Last Admin: 08/20/17 09:48 Dose: 5 mg Levetiracetam (Keppra) 500 mg PEG BID [facility] Last Admin: 08/20/17 18:41 Dose: 500 mg Saccharomyces Boulardii (Florastor) 250 mg PEG DAILY [facility] Last Admin: 08/20/17 09:48 Dose: 250 mg Scopolamine (Transderm-Scop) 1 patch TD Q3D [facility] Last Admin: 08/18/17 20:40 Dose: 1 patch Tamsulosin HCl (Flomax) 0.4 mg PEG DAILY [facility] Last Admin: 08/20/17 09:48 Dose: 0.4 mg Vitamin A (Vitamin A & D Oint Ud Foilpak) 1 ea TOP BID [facility] Last Admin: 08/20/17 18:46 Dose: 1 ea - Labs Labs: 08/17/17 06:24 08/17/17 06:24 PT 10.6 SECONDS (9.7-12.2) 11/24/15 14:10 INR 1.0 11/24/15 14:10 APTT 25 SECONDS (21-34) 11/24/15 14:10 Attending/Attestation - Attestation I have personally seen and examined this patient.: Yes I have fully participated in the care of the patient.: Yes I have reviewed all pertinent clinical information, including history, physical exam and plan: Yes Notes (Text): 08/20/17 19:59 Patient was seen and examined at 10:30 AM 08/20/17. Exam, assessment and plan were thoroughly gone over with the resident. Caden Mercedes D.O.
[2017-08-20] MEDS: Vitamins A & D Oint UD Foilpak TOP SCH ×2 (09:48→18:46)
[2017-08-20] MEDS: Saccharomyces Boulardi 250 mg Cap PEG SCH (09:48)
[2017-08-20] MEDS: levETIRAcetam 100 mg/ml (5ml) Oral Syringe PEG SCH ×2 (09:49→18:41)
[2017-08-20] MEDS: Petrolatum Oint Foilpak (5 gm) TOP PRN (18:40)
--- NOTE | 2017-08-20 21:07 | CP.PCM.PCO ---
Physician Communication Note - Physician Communication Note Physician Communication Note: Lovenox 40 mg SC 1x/day for DVT prophylaxis. Monitor CBC
[2017-08-21] MEDS: Albuterol-Ipratrop 3 mg / 0.5 (3 ml) UD INH SCH ×3 (00:30→17:08)
[2017-08-21] MEDS: Acetylcysteine 20% Inhal Soln (4ml) INH SCH ×3 (00:30→17:08)
[2017-08-21] MEDS: Saccharomyces Boulardi 250 mg Cap PEG SCH (10:26)
[2017-08-21] MEDS: Vitamins A & D Oint UD Foilpak TOP SCH ×2 (10:27→17:21)
[2017-08-21] MEDS: Enoxaparin 40 mg Syringe SC SCH (10:27)
[2017-08-21] MEDS: levETIRAcetam 100 mg/ml (5ml) Oral Syringe PEG SCH ×2 (10:28→17:21)
--- NOTE | 2017-08-21 22:28 | CP.PCM.PN ---
<Al Srivastava - Last Filed: 08/22/17 00:39> Subjective - Date & Time of Evaluation Date of Evaluation: 08/21/17 Time of Evaluation: 07:50 - Subjective Subjective: PGY1 Medicine Note for Dr. Hallman Patient seen and examined at bedside. ROS unattainable due to anoxic brain injury. Objective - Vital Signs/Intake and Output Vital Signs (last 24 hours): Temp Pulse Resp BP Pulse Ox 98.4 F 86 20 143/96 H 99 08/21/17 15:00 08/21/17 15:00 08/21/17 15:00 08/21/17 15:00 08/21/17 15:00 Intake and Output: 08/21/17 08/22/17 18:59 06:59 Intake Total 1560 Output Total 1000 Balance 560 - Medications Medications: Current Medications Acetylcysteine (Acetylcysteine 20%) 4 ml INH RQ8 [facility] Last Admin: 08/21/17 17:08 Dose: 4 ml Albuterol/Ipratropium (Duoneb 3 Mg/0.5 Mg (3 Ml) Ud) 3 ml INH RQ8 [facility] Stop: 08/25/17 23:59 Last Admin: 08/21/17 17:08 Dose: 3 ml Aspirin (Aspirin Chewable) 81 mg PEG DAILY [facility] Last Admin: 08/21/17 10:27 Dose: 81 mg Bethanechol Chloride (Urecholine) 50 mg PEG TID [facility] Last Admin: 08/21/17 17:20 Dose: 50 mg Carvedilol (Coreg) 3.125 mg PEG BID [facility] Last Admin: 08/21/17 17:19 Dose: 3.125 mg Clopidogrel Bisulfate (Plavix) 75 mg PEG DAILY [facility] Last Admin: 08/21/17 10:28 Dose: 75 mg Emollient Ointment (Vaseline Oint) 5 gm TOP DAILY PRN PRN Reason: Dry skin Last Admin: 08/20/17 18:40 Dose: 5 gm Enoxaparin Sodium (Lovenox) 40 mg SC DAILY [facility] Last Admin: 08/21/17 10:27 Dose: 40 mg Famotidine (Pepcid) 20 mg PEG DAILY [facility] Last Admin: 08/21/17 10:26 Dose: 20 mg Finasteride (Proscar) 5 mg PEG DAILY [facility] Last Admin: 08/21/17 10:28 Dose: 5 mg Levetiracetam (Keppra) 500 mg PEG BID [facility] Last Admin: 08/21/17 17:21 Dose: 500 mg Saccharomyces Boulardii (Florastor) 250 mg PEG DAILY [facility] Last Admin: 08/21/17 10:26 Dose: 250 mg Scopolamine (Transderm-Scop) 1 patch TD Q3D [facility] Last Admin: 08/21/17 21:16 Dose: 1 patch Tamsulosin HCl (Flomax) 0.4 mg PEG DAILY [facility] Last Admin: 08/21/17 10:26 Dose: 0.4 mg Vitamin A (Vitamin A & D Oint Ud Foilpak) 1 ea TOP BID [facility] Last Admin: 08/21/17 17:21 Dose: 1 ea - Labs Labs: 08/17/17 06:24 08/17/17 06:24 PT 10.6 SECONDS (9.7-12.2) 11/24/15 14:10 INR 1.0 11/24/15 14:10 APTT 25 SECONDS (21-34) 11/24/15 14:10 - Constitutional Appears: No Acute Distress - Head Exam Head Exam: ATRAUMATIC, NORMOCEPHALIC - Eye Exam Eye Exam: EOMI, Normal appearance - ENT Exam ENT Exam: Mucous Membranes Moist - Neck Exam Additional comments: trach collar in place, no abnormal growth in tubing. - Respiratory Exam Respiratory Exam: Clear to Ausculation Bilateral, NORMAL BREATHING PATTERN. absent: Accessory Muscle Use, Rales, Rhonchi, Wheezes, Respiratory Distress - Cardiovascular Exam Cardiovascular Exam: REGULAR RHYTHM, +S1, +S2 - GI/Abdominal Exam GI & Abdominal Exam: Soft, Normal Bowel Sounds. absent: Distended, Firm, Guarding, Rigid, Tenderness Additional comments: peg tube in place. - Exam Exam: absent: Bladder Distension - Extremities Exam Extremities Exam: Normal Inspection. absent: Calf Tenderness, Joint Swelling, Pedal Edema, Tenderness Additional comments: SCDs and pressure ulcer boots in place. - Neurological Exam Neurological Exam: Altered (due to anoxic brain injury) - Skin Skin Exam: Dry, Intact, Normal Color, Warm Assessment and Plan - Assessment and Plan (Free Text) Assessment: Anoxic encephalopathy s/p cardiac arrest in 05/2015 no acute changes Pt has non spontaneous movements. Continue tube feeds- goal of 60ml/hr, feedings held at night due to fluid overload Respiratory failure Trach in place, continue daily monitoring for secretions. No change in management at this time. Continue with aggressive suctioning multiple times a day per respiratory therapist. Monitor for signs of respiratory distress Thick secretions Duoneb 3ml INH Q6 and Mucomyst 4ml INH Q6H Scopolamine 1 patch TD Q3D [facility] Repeat CXR on 05/28/17: linear increased consolidative changes in the right mid- lung zone and left lung base which may represent atelectasis and/or infiltrate. Questionable trace left pleural effusion. moderate venous congestion. cardiomegaly. degenerative changes in the spine and shoulders Leukocytosis secondary to UTI. Resolved 08/10: WBC 8.2 afebrile Meropenem (started 07/22) - per Dr. Armstrong continue for a total of 2 weeks - Discontinued 08/05/17 ID consult: Dr. Armstrong --> help appreciated Urinary retention 07/21: NS stopped because tube feeds restarted 07/20: Urine dark in color, monitor, continue NS at 50 ml per hour 07/07/17: Catheter flushed, patient output approx. 500mL within one hour post flush. 06/27/17: Continue bladder massages to aid in voiding. 06/25/17: Patient voids with movement. Continue bladder massages to aid in voiding. 06/23/17: Patient will need to have daily bladder massage to allow for complete voiding 06/17/17: Nursing communication placed in: straight catherization with bladder scan> 100ml 06/08: urinary retention yesterday, was given 40mg lasix iv and patient was able to urinate through condom baker Take note condom cath not always securely in place so Is and Os are approximate as patient does wet bed Ordered- new condom catheter on 05/22/17 Flomax 0.4mg PEG daily Proscar 5mg PEG daily continue Bethanecol 50mg PEG TID- started after persistent retention and found to be effective. monitor I's and O's - I/O: 780/350 Check bladder scan for residual urine three times weekly Hypokalemia K+ on 08/10: 4.2 Sacral ulcer Healed Cont with offloading/cushioning/turning Continue frequent turning, protective ointment and skin checks. History of coronary artery disease s/p cardiac stents on 06/13/15 Cont ASA 81mg via PEG daily Cont Coreg 3.125mg PEG BID Cont Plavix 75 mg PEG daily Seizures Continue Keppra 500mg PEG BID for seizure prophylaxis Monitor for activity Lower extremity edema Improved SCDs in place Pressure ulcer boots on b/l Continue to monitor Prophylactic measure Pepcid 20 mg PEG BID Lovenox 40mg SC daily SCDs and offloading boots continue to turn and reposition q2hrs Continue to monitor medication administrations and clinical presentation weekly labs. vasoline ointment applied to feet prn to prevent hyperkeratosis Please hold feeding from 10pm-6am, placed into nursing communication Vitamin A & D for lips Case discussed with Dr. Viji Melendez Carola PGY1 <Donavan Hallman - Last Filed: 08/23/17 10:52> Objective - Vital Signs/Intake and Output Vital Signs (last 24 hours): Temp Pulse Resp BP Pulse Ox 99 F 79 23 129/80 100 08/23/17 08:00 08/23/17 08:00 08/23/17 08:00 08/23/17 08:00 08/23/17 08:00 Intake and Output: 08/23/17 08/23/17 06:59 18:59 Intake Total 780 Output Total 700 Balance 80 - Medications Medications: Current Medications Acetylcysteine (Acetylcysteine 20%) 4 ml INH RQ8 [facility] Last Admin: 08/23/17 07:56 Dose: 4 ml Aspirin (Aspirin Chewable) 81 mg PEG DAILY [facility] Last Admin: 08/23/17 10:23 Dose: 81 mg Bethanechol Chloride (Urecholine) 50 mg PEG TID [facility] Last Admin: 08/23/17 10:23 Dose: 50 mg Carvedilol (Coreg) 3.125 mg PEG BID [facility] Last Admin: 08/23/17 10:23 Dose: 3.125 mg Clopidogrel Bisulfate (Plavix) 75 mg PEG DAILY [facility] Last Admin: 08/23/17 10:24 Dose: 75 mg Emollient Ointment (Vaseline Oint) 5 gm TOP DAILY PRN PRN Reason: Dry skin Last Admin: 08/20/17 18:40 Dose: 5 gm Enoxaparin Sodium (Lovenox) 40 mg SC DAILY [facility] Last Admin: 08/23/17 10:23 Dose: 40 mg Famotidine (Pepcid) 20 mg PEG DAILY [facility] Last Admin: 08/23/17 10:23 Dose: 20 mg Finasteride (Proscar) 5 mg PEG DAILY [facility] Last Admin: 08/23/17 10:23 Dose: 5 mg Levetiracetam (Keppra) 500 mg PEG BID [facility] Last Admin: 08/23/17 10:22 Dose: 500 mg Saccharomyces Boulardii (Florastor) 250 mg PEG DAILY [facility] Last Admin: 08/23/17 10:23 Dose: 250 mg Scopolamine (Transderm-Scop) 1 patch TD Q3D [facility] Last Admin: 08/21/17 21:16 Dose: 1 patch Tamsulosin HCl (Flomax) 0.4 mg PEG DAILY [facility] Last Admin: 08/23/17 10:23 Dose: 0.4 mg Vitamin A (Vitamin A & D Oint Ud Foilpak) 1 ea TOP BID [facility] Last Admin: 08/23/17 10:24 Dose: 1 ea - Labs Labs: 08/17/17 06:24 08/17/17 06:24 PT 10.6 SECONDS (9.7-12.2) 11/24/15 14:10 INR 1.0 11/24/15 14:10 APTT 25 SECONDS (21-34) 11/24/15 14:10 Attending/Attestation - Attestation I have personally seen and examined this patient.: Yes I have fully participated in the care of the patient.: Yes I have reviewed all pertinent clinical information, including history, physical exam and plan: Yes Notes (Text): cont current supportive care on trach collar not in resp distress or failure feeding tube functional patient could be managed at [place] unable to send due to family acceptance social issues citizenship status
[2017-08-22] MEDS: Albuterol-Ipratrop 3 mg / 0.5 (3 ml) UD INH SCH ×3 (00:44→19:52)
[2017-08-22] MEDS: Acetylcysteine 20% Inhal Soln (4ml) INH SCH ×3 (00:44→19:52)
--- NOTE | 2017-08-22 01:32 | CP.PCM.PN ---
<AlexFrancis S - Last Filed: 08/22/17 09:10> Subjective - Date & Time of Evaluation Date of Evaluation: 08/22/17 Time of Evaluation: 05:00 - Subjective Subjective: PGY-[address] Hallman Patient seen and examined at bedside. Patient has had an anoxic brain injury. So ROS is unable to be obtained. Objective - Vital Signs/Intake and Output Vital Signs (last 24 hours): Temp Pulse Resp BP Pulse Ox 98.3 F 80 20 127/83 99 08/22/17 00:00 08/22/17 00:00 08/22/17 00:00 08/22/17 00:00 08/22/17 00:00 Intake and Output: 08/21/17 08/22/17 18:59 06:59 Intake Total 1560 Output Total 1000 Balance 560 - Medications Medications: Current Medications Acetylcysteine (Acetylcysteine 20%) 4 ml INH RQ8 [facility] Last Admin: 08/22/17 00:44 Dose: 4 ml Albuterol/Ipratropium (Duoneb 3 Mg/0.5 Mg (3 Ml) Ud) 3 ml INH RQ8 [facility] Stop: 08/25/17 23:59 Last Admin: 08/22/17 00:44 Dose: 3 ml Aspirin (Aspirin Chewable) 81 mg PEG DAILY [facility] Last Admin: 08/21/17 10:27 Dose: 81 mg Bethanechol Chloride (Urecholine) 50 mg PEG TID [facility] Last Admin: 08/21/17 17:20 Dose: 50 mg Carvedilol (Coreg) 3.125 mg PEG BID [facility] Last Admin: 08/21/17 17:19 Dose: 3.125 mg Clopidogrel Bisulfate (Plavix) 75 mg PEG DAILY [facility] Last Admin: 08/21/17 10:28 Dose: 75 mg Emollient Ointment (Vaseline Oint) 5 gm TOP DAILY PRN PRN Reason: Dry skin Last Admin: 08/20/17 18:40 Dose: 5 gm Enoxaparin Sodium (Lovenox) 40 mg SC DAILY [facility] Last Admin: 08/21/17 10:27 Dose: 40 mg Famotidine (Pepcid) 20 mg PEG DAILY [facility] Last Admin: 08/21/17 10:26 Dose: 20 mg Finasteride (Proscar) 5 mg PEG DAILY [facility] Last Admin: 08/21/17 10:28 Dose: 5 mg Levetiracetam (Keppra) 500 mg PEG BID [facility] Last Admin: 08/21/17 17:21 Dose: 500 mg Saccharomyces Boulardii (Florastor) 250 mg PEG DAILY [facility] Last Admin: 08/21/17 10:26 Dose: 250 mg Scopolamine (Transderm-Scop) 1 patch TD Q3D [facility] Last Admin: 08/21/17 21:16 Dose: 1 patch Tamsulosin HCl (Flomax) 0.4 mg PEG DAILY [facility] Last Admin: 08/21/17 10:26 Dose: 0.4 mg Vitamin A (Vitamin A & D Oint Ud Foilpak) 1 ea TOP BID [facility] Last Admin: 08/21/17 17:21 Dose: 1 ea - Labs Labs: 08/17/17 06:24 08/17/17 06:24 PT 10.6 SECONDS (9.7-12.2) 11/24/15 14:10 INR 1.0 11/24/15 14:10 APTT 25 SECONDS (21-34) 11/24/15 14:10 - Constitutional Appears: No Acute Distress - Head Exam Head Exam: ATRAUMATIC, NORMOCEPHALIC - Eye Exam Eye Exam: EOMI, Normal appearance - ENT Exam ENT Exam: Mucous Membranes Moist - Neck Exam Additional comments: trach collar in place, no abnormal growth in tubing. - Respiratory Exam Respiratory Exam: Clear to Ausculation Bilateral, NORMAL BREATHING PATTERN - Cardiovascular Exam Cardiovascular Exam: REGULAR RHYTHM, +S1, +S2 - GI/Abdominal Exam GI & Abdominal Exam: Soft, Normal Bowel Sounds Additional comments: PEG tube in place. - Exam Exam: absent: Bladder Distension - Extremities Exam Extremities Exam: Normal Inspection. absent: Joint Swelling Additional comments: SCDs and pressure ulcer boots in place. - Neurological Exam Neurological Exam: Altered (secondary to anoxic brain injury) - Skin Skin Exam: Dry, Intact Assessment and Plan - Assessment and Plan (Free Text) Plan: Anoxic encephalopathy s/p cardiac arrest in 05/2015 no acute changes Pt has non spontaneous movements. Continue tube feeds- goal of 60ml/hr, feedings held at night due to fluid overload Respiratory failure Trach in place, continue daily monitoring for secretions. No change in management at this time. Continue with aggressive suctioning multiple times a day per respiratory therapist. Monitor for signs of respiratory distress Thick secretions Duoneb 3ml INH Q6 and Mucomyst 4ml INH Q6H Scopolamine 1 patch TD Q3D [facility] Repeat CXR on 05/28/17: linear increased consolidative changes in the right mid- lung zone and left lung base which may represent atelectasis and/or infiltrate. Questionable trace left pleural effusion. moderate venous congestion. cardiomegaly. degenerative changes in the spine and shoulders Leukocytosis secondary to UTI. Resolved 08/10: WBC 8.2 afebrile Meropenem (started 07/22) - per Dr. Armstrong continue for a total of 2 weeks - Discontinued 08/05/17 ID consult: Dr. Armstrong --> help appreciated Urinary retention 07/21: NS stopped because tube feeds restarted 07/20: Urine dark in color, monitor, continue NS at 50 ml per hour 07/07/17: Catheter flushed, patient output approx. 500mL within one hour post flush. 06/27/17: Continue bladder massages to aid in voiding. 06/25/17: Patient voids with movement. Continue bladder massages to aid in voiding. 06/23/17: Patient will need to have daily bladder massage to allow for complete voiding 06/17/17: Nursing communication placed in: straight catherization with bladder scan> 100ml 06/08: urinary retention yesterday, was given 40mg lasix iv and patient was able to urinate through condom baker Take note condom cath not always securely in place so Is and Os are approximate as patient does wet bed Ordered- new condom catheter on 05/22/17 Flomax 0.4mg PEG daily Proscar 5mg PEG daily continue Bethanecol 50mg PEG TID- started after persistent retention and found to be effective. monitor I's and O's - I/O: 780/350 Check bladder scan for residual urine three times weekly Hypokalemia K+ on 08/10: 4.2 Sacral ulcer Healed Cont with offloading/cushioning/turning Continue frequent turning, protective ointment and skin checks. History of coronary artery disease s/p cardiac stents on 06/13/15 Cont ASA 81mg via PEG daily Cont Coreg 3.125mg PEG BID Cont Plavix 75 mg PEG daily Seizures Continue Keppra 500mg PEG BID for seizure prophylaxis Monitor for activity Lower extremity edema Improved SCDs in place Pressure ulcer boots on b/l Continue to monitor Prophylactic measure Pepcid 20 mg PEG BID Lovenox 40mg SC daily SCDs and offloading boots continue to turn and reposition q2hrs Continue to monitor medication administrations and clinical presentation weekly labs. vasoline ointment applied to feet prn to prevent hyperkeratosis Please hold feeding from 10pm-6am, placed into nursing communication Vitamin A & D for lips Will discuss case with Dr. Viji Johnson PGY-1 <Donavan Hallman - Last Filed: 08/23/17 10:53> Objective - Vital Signs/Intake and Output Vital Signs (last 24 hours): Temp Pulse Resp BP Pulse Ox 99 F 79 23 129/80 100 08/23/17 08:00 08/23/17 08:00 08/23/17 08:00 08/23/17 08:00 08/23/17 08:00 Intake and Output: 08/23/17 08/23/17 06:59 18:59 Intake Total 780 Output Total 700 Balance 80 - Medications Medications: Current Medications Acetylcysteine (Acetylcysteine 20%) 4 ml INH RQ8 [facility] Last Admin: 08/23/17 07:56 Dose: 4 ml Aspirin (Aspirin Chewable) 81 mg PEG DAILY [facility] Last Admin: 08/23/17 10:23 Dose: 81 mg Bethanechol Chloride (Urecholine) 50 mg PEG TID [facility] Last Admin: 08/23/17 10:23 Dose: 50 mg Carvedilol (Coreg) 3.125 mg PEG BID [facility] Last Admin: 08/23/17 10:23 Dose: 3.125 mg Clopidogrel Bisulfate (Plavix) 75 mg PEG DAILY [facility] Last Admin: 08/23/17 10:24 Dose: 75 mg Emollient Ointment (Vaseline Oint) 5 gm TOP DAILY PRN PRN Reason: Dry skin Last Admin: 08/20/17 18:40 Dose: 5 gm Enoxaparin Sodium (Lovenox) 40 mg SC DAILY [facility] Last Admin: 08/23/17 10:23 Dose: 40 mg Famotidine (Pepcid) 20 mg PEG DAILY [facility] Last Admin: 08/23/17 10:23 Dose: 20 mg Finasteride (Proscar) 5 mg PEG DAILY [facility] Last Admin: 08/23/17 10:23 Dose: 5 mg Levetiracetam (Keppra) 500 mg PEG BID [facility] Last Admin: 08/23/17 10:22 Dose: 500 mg Saccharomyces Boulardii (Florastor) 250 mg PEG DAILY [facility] Last Admin: 08/23/17 10:23 Dose: 250 mg Scopolamine (Transderm-Scop) 1 patch TD Q3D [facility] Last Admin: 08/21/17 21:16 Dose: 1 patch Tamsulosin HCl (Flomax) 0.4 mg PEG DAILY [facility] Last Admin: 08/23/17 10:23 Dose: 0.4 mg Vitamin A (Vitamin A & D Oint Ud Foilpak) 1 ea TOP BID [facility] Last Admin: 08/23/17 10:24 Dose: 1 ea - Labs Labs: 08/17/17 06:24 08/17/17 06:24 PT 10.6 SECONDS (9.7-12.2) 11/24/15 14:10 INR 1.0 11/24/15 14:10 APTT 25 SECONDS (21-34) 11/24/15 14:10 Attending/Attestation - Attestation I have personally seen and examined this patient.: Yes I have fully participated in the care of the patient.: Yes I have reviewed all pertinent clinical information, including history, physical exam and plan: Yes Notes (Text): stable cont current supportive care
[2017-08-22] MEDS: Enoxaparin 40 mg Syringe SC SCH (09:51)
[2017-08-22] MEDS: levETIRAcetam 100 mg/ml (5ml) Oral Syringe PEG SCH ×2 (09:51→17:28)
[2017-08-22] MEDS: Saccharomyces Boulardi 250 mg Cap PEG SCH (09:51)
[2017-08-22] MEDS: Vitamins A & D Oint UD Foilpak TOP SCH ×2 (09:51→17:28)
[2017-08-23] MEDS: Albuterol-Ipratrop 3 mg / 0.5 (3 ml) UD INH SCH ×2 (01:55→07:56)
[2017-08-23] MEDS: Acetylcysteine 20% Inhal Soln (4ml) INH SCH ×3 (01:55→18:05)
[2017-08-23] MEDS: levETIRAcetam 100 mg/ml (5ml) Oral Syringe PEG SCH ×2 (10:22→17:37)
[2017-08-23] MEDS: Enoxaparin 40 mg Syringe SC SCH (10:23)
[2017-08-23] MEDS: Saccharomyces Boulardi 250 mg Cap PEG SCH (10:23)
[2017-08-23] MEDS: Vitamins A & D Oint UD Foilpak TOP SCH ×2 (10:24→17:37)
--- NOTE | 2017-08-23 10:51 | CP.PCM.PN ---
<Francis Johnson - Last Filed: 08/23/17 11:51> Subjective - Date & Time of Evaluation Date of Evaluation: 08/23/17 Time of Evaluation: 06:00 - Subjective Subjective: PGY-[address] Hallman Patient seen and examined at bedside. Patient has had an anoxic brain injury. ROS is unable to be obtained. Objective - Vital Signs/Intake and Output Vital Signs (last 24 hours): Temp Pulse Resp BP Pulse Ox 99 F 79 23 129/80 100 08/23/17 08:00 08/23/17 08:00 08/23/17 08:00 08/23/17 08:00 08/23/17 08:00 Intake and Output: 08/23/17 08/23/17 06:59 18:59 Intake Total 780 Output Total 700 Balance 80 - Medications Medications: Current Medications Acetylcysteine (Acetylcysteine 20%) 4 ml INH RQ8 [facility] Last Admin: 08/23/17 07:56 Dose: 4 ml Aspirin (Aspirin Chewable) 81 mg PEG DAILY [facility] Last Admin: 08/23/17 10:23 Dose: 81 mg Bethanechol Chloride (Urecholine) 50 mg PEG TID [facility] Last Admin: 08/23/17 10:23 Dose: 50 mg Carvedilol (Coreg) 3.125 mg PEG BID [facility] Last Admin: 08/23/17 10:23 Dose: 3.125 mg Clopidogrel Bisulfate (Plavix) 75 mg PEG DAILY [facility] Last Admin: 08/23/17 10:24 Dose: 75 mg Emollient Ointment (Vaseline Oint) 5 gm TOP DAILY PRN PRN Reason: Dry skin Last Admin: 08/20/17 18:40 Dose: 5 gm Enoxaparin Sodium (Lovenox) 40 mg SC DAILY [facility] Last Admin: 08/23/17 10:23 Dose: 40 mg Famotidine (Pepcid) 20 mg PEG DAILY [facility] Last Admin: 08/23/17 10:23 Dose: 20 mg Finasteride (Proscar) 5 mg PEG DAILY [facility] Last Admin: 08/23/17 10:23 Dose: 5 mg Levetiracetam (Keppra) 500 mg PEG BID [facility] Last Admin: 08/23/17 10:22 Dose: 500 mg Saccharomyces Boulardii (Florastor) 250 mg PEG DAILY [facility] Last Admin: 08/23/17 10:23 Dose: 250 mg Scopolamine (Transderm-Scop) 1 patch TD Q3D [facility] Last Admin: 08/21/17 21:16 Dose: 1 patch Tamsulosin HCl (Flomax) 0.4 mg PEG DAILY [facility] Last Admin: 08/23/17 10:23 Dose: 0.4 mg Vitamin A (Vitamin A & D Oint Ud Foilpak) 1 ea TOP BID [facility] Last Admin: 08/23/17 10:24 Dose: 1 ea - Labs Labs: 08/17/17 06:24 08/17/17 06:24 PT 10.6 SECONDS (9.7-12.2) 11/24/15 14:10 INR 1.0 11/24/15 14:10 APTT 25 SECONDS (21-34) 11/24/15 14:10 - Constitutional Appears: No Acute Distress - Head Exam Head Exam: ATRAUMATIC, NORMOCEPHALIC - Eye Exam Eye Exam: EOMI, Normal appearance - ENT Exam ENT Exam: Mucous Membranes Moist - Neck Exam Additional comments: trach collar in place, no abnormal growth in tubing. - Respiratory Exam Respiratory Exam: Clear to Ausculation Bilateral, NORMAL BREATHING PATTERN - Cardiovascular Exam Cardiovascular Exam: REGULAR RHYTHM, +S1, +S2 - GI/Abdominal Exam GI & Abdominal Exam: Soft, Normal Bowel Sounds Additional comments: PEG tube in place. - Exam Exam: absent: Bladder Distension - Extremities Exam Extremities Exam: Normal Inspection. absent: Joint Swelling Additional comments: SCDs and pressure ulcer boots in place. - Neurological Exam Neurological Exam: Altered (secondary to anoxic brain injury) - Skin Skin Exam: Dry, Intact Assessment and Plan - Assessment and Plan (Free Text) Plan: Anoxic encephalopathy s/p cardiac arrest in 05/2015 no acute changes Pt has non spontaneous movements. Continue tube feeds- goal of 60ml/hr, feedings held at night due to fluid overload Respiratory failure Trach in place, continue daily monitoring for secretions. No change in management at this time. Continue with aggressive suctioning multiple times a day per respiratory therapist. Monitor for signs of respiratory distress Thick secretions Duoneb 3ml INH Q6 and Mucomyst 4ml INH Q6H Scopolamine 1 patch TD Q3D [facility] Repeat CXR on 05/28/17: linear increased consolidative changes in the right mid- lung zone and left lung base which may represent atelectasis and/or infiltrate. Questionable trace left pleural effusion. moderate venous congestion. cardiomegaly. degenerative changes in the spine and shoulders Leukocytosis secondary to UTI. Resolved 08/10: WBC 8.2 afebrile Meropenem (started 07/22) - per Dr. Armstrong continue for a total of 2 weeks - Discontinued 08/05/17 ID consult: Dr. Armstrong --> help appreciated Urinary retention 07/21: NS stopped because tube feeds restarted 07/20: Urine dark in color, monitor, continue NS at 50 ml per hour 07/07/17: Catheter flushed, patient output approx. 500mL within one hour post flush. 06/27/17: Continue bladder massages to aid in voiding. 06/25/17: Patient voids with movement. Continue bladder massages to aid in voiding. 06/23/17: Patient will need to have daily bladder massage to allow for complete voiding 06/17/17: Nursing communication placed in: straight catherization with bladder scan> 100ml 06/08: urinary retention yesterday, was given 40mg lasix iv and patient was able to urinate through condom baker Take note condom cath not always securely in place so Is and Os are approximate as patient does wet bed Ordered- new condom catheter on 05/22/17 Flomax 0.4mg PEG daily Proscar 5mg PEG daily continue Bethanecol 50mg PEG TID- started after persistent retention and found to be effective. monitor I's and O's - I/O: 780/350 Check bladder scan for residual urine three times weekly Hypokalemia K+ on 08/10: 4.2 Sacral ulcer Healed Cont with offloading/cushioning/turning Continue frequent turning, protective ointment and skin checks. History of coronary artery disease s/p cardiac stents on 06/13/15 Cont ASA 81mg via PEG daily Cont Coreg 3.125mg PEG BID Cont Plavix 75 mg PEG daily Seizures Continue Keppra 500mg PEG BID for seizure prophylaxis Monitor for activity Lower extremity edema Improved SCDs in place Pressure ulcer boots on b/l Continue to monitor Prophylactic measure Pepcid 20 mg PEG BID Lovenox 40mg SC daily SCDs and offloading boots continue to turn and reposition q2hrs Continue to monitor medication administrations and clinical presentation weekly labs. vasoline ointment applied to feet prn to prevent hyperkeratosis Please hold feeding from 10pm-6am, placed into nursing communication Vitamin A & D for lips Will discuss case with Dr. Viji Johnson PGY-1 <Donavan Hallman - Last Filed: 08/23/17 13:47> Objective - Vital Signs/Intake and Output Vital Signs (last 24 hours): Temp Pulse Resp BP Pulse Ox 99 F 79 23 129/80 100 08/23/17 08:00 08/23/17 08:00 08/23/17 08:00 08/23/17 08:00 08/23/17 08:00 Intake and Output: 08/23/17 08/23/17 06:59 18:59 Intake Total 780 Output Total 700 Balance 80 - Medications Medications: Current Medications Acetylcysteine (Acetylcysteine 20%) 4 ml INH RQ8 [facility] Last Admin: 08/23/17 07:56 Dose: 4 ml Aspirin (Aspirin Chewable) 81 mg PEG DAILY [facility] Last Admin: 08/23/17 10:23 Dose: 81 mg Bethanechol Chloride (Urecholine) 50 mg PEG TID [facility] Last Admin: 08/23/17 10:23 Dose: 50 mg Carvedilol (Coreg) 3.125 mg PEG BID [facility] Last Admin: 08/23/17 10:23 Dose: 3.125 mg Clopidogrel Bisulfate (Plavix) 75 mg PEG DAILY [facility] Last Admin: 08/23/17 10:24 Dose: 75 mg Emollient Ointment (Vaseline Oint) 5 gm TOP DAILY PRN PRN Reason: Dry skin Last Admin: 08/20/17 18:40 Dose: 5 gm Enoxaparin Sodium (Lovenox) 40 mg SC DAILY [facility] Last Admin: 08/23/17 10:23 Dose: 40 mg Famotidine (Pepcid) 20 mg PEG DAILY [facility] Last Admin: 08/23/17 10:23 Dose: 20 mg Finasteride (Proscar) 5 mg PEG DAILY [facility] Last Admin: 08/23/17 10:23 Dose: 5 mg Levetiracetam (Keppra) 500 mg PEG BID [facility] Last Admin: 08/23/17 10:22 Dose: 500 mg Saccharomyces Boulardii (Florastor) 250 mg PEG DAILY [facility] Last Admin: 08/23/17 10:23 Dose: 250 mg Scopolamine (Transderm-Scop) 1 patch TD Q3D [facility] Last Admin: 08/21/17 21:16 Dose: 1 patch Tamsulosin HCl (Flomax) 0.4 mg PEG DAILY [facility] Last Admin: 08/23/17 10:23 Dose: 0.4 mg Vitamin A (Vitamin A & D Oint Ud Foilpak) 1 ea TOP BID [facility] Last Admin: 08/23/17 10:24 Dose: 1 ea - Labs Labs: 08/17/17 06:24 08/17/17 06:24 PT 10.6 SECONDS (9.7-12.2) 11/24/15 14:10 INR 1.0 11/24/15 14:10 APTT 25 SECONDS (21-34) 11/24/15 14:10 Attending/Attestation - Attestation I have personally seen and examined this patient.: Yes I have fully participated in the care of the patient.: Yes I have reviewed all pertinent clinical information, including history, physical exam and plan: Yes Notes (Text): anoxic encephalopathy stable cont current supportive care
[2017-08-24] MEDS: Acetylcysteine 20% Inhal Soln (4ml) INH SCH ×3 (00:15→17:16)
[2017-08-24] MEDS: Albuterol-Ipratrop 3 mg / 0.5 (3 ml) UD INH PRN ×4 (02:23→17:16)
[2017-08-24 07:38] LABS: ALBUMIN 3.8 g/dL (3.5-5.0); ALT/SGPT 50 U/L (21-72); AST/SGOT 41 U/L (17-59); BLOOD UREA NITROGEN 14 mg/dL (9-20); CALCIUM 9.3 mg/dl (8.6-10.4); GFR NON-AFRICAN AMERICAN > 60
[2017-08-24 07:42] LABS: ALB/GLOB RATIO 0.9 (1.0-2.1); BASO # 0.1 K/uL (0.0-0.2); BASO % 0.6 % (0.0-2.0); EOS # 0.5 K/uL (0.0-0.7); EOS % 5.1 % (0.0-4.0); HEMOGLOBIN 11.4 g/dL (12.0-18.0); LYMPH # 2.7 K/uL (1.0-4.3); LYMPH % 29.1 % (20.0-40.0); MEAN CELL VOLUME 88.4 fL (80.0-94.0); MEAN CORPUSCULAR HEMOGLOBIN 29.7 pg (27.0-31.0); MEAN CORPUSCULAR HGB CONC 33.6 g/dL (33.0-37.0); MEAN PLATELET VOLUME 9.1 fL (7.2-11.7); MONO # 0.9 K/uL (0.0-0.8); MONO % 10.2 % (0.0-10.0); RBC 3.84 Mil/uL (4.40-5.90); RED CELL DISTRIBUTION WIDTH 15.3 % (11.5-14.5); WHITE BLOOD COUNT 9.1 K/uL (4.8-10.8)
[2017-08-24] MEDS: Saccharomyces Boulardi 250 mg Cap PEG SCH (10:06)
[2017-08-24] MEDS: levETIRAcetam 100 mg/ml (5ml) Oral Syringe PEG SCH ×2 (10:07→17:34)
[2017-08-24] MEDS: Vitamins A & D Oint UD Foilpak TOP SCH ×2 (10:07→18:20)
[2017-08-24] MEDS: Enoxaparin 40 mg Syringe SC SCH (10:07)
[2017-08-24] MEDS: Albuterol-Ipratrop 3 mg / 0.5 (3 ml) UD INH SCH (14:13)
--- NOTE | 2017-08-24 17:57 | CP.PCM.PN ---
<Al Srivastava - Last Filed: 08/24/17 19:46> Subjective - Date & Time of Evaluation Date of Evaluation: 08/24/17 Time of Evaluation: 07:00 - Subjective Subjective: PGY1 Progress note for Dr. Chavis Patient seen and examined at bedside. Patient has had an anoxic brain injury. ROS is unobtainable. Objective - Vital Signs/Intake and Output Vital Signs (last 24 hours): Temp Pulse Resp BP Pulse Ox 98.1 F 75 20 123/80 99 08/24/17 16:27 08/24/17 16:27 08/24/17 16:27 08/24/17 16:27 08/24/17 16:27 Intake and Output: 08/24/17 08/24/17 06:59 18:59 Intake Total 1610 780 Output Total 950 400 Balance 660 380 - Medications Medications: Current Medications Acetylcysteine (Acetylcysteine 20%) 4 ml INH RQ8 [facility] Last Admin: 08/24/17 17:16 Dose: 4 ml Albuterol/Ipratropium (Duoneb 3 Mg/0.5 Mg (3 Ml) Ud) 3 ml INH RQ6 PRN PRN Reason: Wheezing Last Admin: 08/24/17 17:16 Dose: 3 ml Aspirin (Aspirin Chewable) 81 mg PEG DAILY [facility] Last Admin: 08/24/17 10:07 Dose: 81 mg Bethanechol Chloride (Urecholine) 50 mg PEG TID [facility] Last Admin: 08/24/17 17:38 Dose: 50 mg Carvedilol (Coreg) 3.125 mg PEG BID [facility] Last Admin: 08/24/17 17:38 Dose: 3.125 mg Clopidogrel Bisulfate (Plavix) 75 mg PEG DAILY [facility] Last Admin: 08/24/17 10:07 Dose: 75 mg Emollient Ointment (Vaseline Oint) 5 gm TOP DAILY PRN PRN Reason: Dry skin Last Admin: 08/20/17 18:40 Dose: 5 gm Enoxaparin Sodium (Lovenox) 40 mg SC DAILY [facility] Last Admin: 08/24/17 10:07 Dose: 40 mg Famotidine (Pepcid) 20 mg PEG DAILY [facility] Last Admin: 08/24/17 10:07 Dose: 20 mg Finasteride (Proscar) 5 mg PEG DAILY [facility] Last Admin: 08/24/17 10:06 Dose: 5 mg Levetiracetam (Keppra) 500 mg PEG BID [facility] Last Admin: 08/24/17 17:34 Dose: 500 mg Saccharomyces Boulardii (Florastor) 250 mg PEG DAILY [facility] Last Admin: 08/24/17 10:06 Dose: 250 mg Scopolamine (Transderm-Scop) 1 patch TD Q3D [facility] Last Admin: 08/21/17 21:16 Dose: 1 patch Tamsulosin HCl (Flomax) 0.4 mg PEG DAILY [facility] Last Admin: 08/24/17 10:06 Dose: 0.4 mg Vitamin A (Vitamin A & D Oint Ud Foilpak) 1 ea TOP BID [facility] Last Admin: 08/24/17 10:07 Dose: 1 ea - Labs Labs: 08/24/17 07:07 08/24/17 07:07 PT 10.6 SECONDS (9.7-12.2) 11/24/15 14:10 INR 1.0 11/24/15 14:10 APTT 25 SECONDS (21-34) 11/24/15 14:10 - Constitutional Appears: No Acute Distress, Chronically Ill - Head Exam Head Exam: ATRAUMATIC, NORMOCEPHALIC - Eye Exam Eye Exam: absent: Scleral icterus - ENT Exam ENT Exam: Mucous Membranes Moist - Neck Exam Additional comments: Trach in place - Respiratory Exam Respiratory Exam: Clear to Ausculation Bilateral, NORMAL BREATHING PATTERN. absent: Accessory Muscle Use, Rales, Rhonchi, Wheezes, Respiratory Distress - Cardiovascular Exam Cardiovascular Exam: REGULAR RHYTHM, +S1, +S2 - GI/Abdominal Exam GI & Abdominal Exam: Soft, Normal Bowel Sounds. absent: Firm, Guarding, Rigid Additional comments: PEG in place. - Extremities Exam Extremities Exam: absent: Calf Tenderness, Pedal Edema, Tenderness Additional comments: SCDs and Pressure ulcer boots in place. - Neurological Exam Neurological Exam: Altered (anoxic brain injury) - Skin Skin Exam: Dry, Normal Color, Warm Assessment and Plan - Assessment and Plan (Free Text) Assessment: Anoxic encephalopathy s/p cardiac arrest in 05/2015 no acute changes Pt has non spontaneous movements. Continue tube feeds- goal of 60ml/hr, feedings held at night due to fluid overload Respiratory failure Trach in place, continue daily monitoring for secretions. No change in management at this time. Continue with aggressive suctioning multiple times a day per respiratory therapist. Monitor for signs of respiratory distress Thick secretions Duoneb 3ml INH Q6 and Mucomyst 4ml INH Q6H Scopolamine 1 patch TD Q3D [facility] Repeat CXR on 05/28/17: linear increased consolidative changes in the right mid- lung zone and left lung base which may represent atelectasis and/or infiltrate. Questionable trace left pleural effusion. moderate venous congestion. cardiomegaly. degenerative changes in the spine and shoulders Leukocytosis secondary to UTI. Resolved 08/10: WBC 8.2 afebrile Meropenem (started 07/22) - per Dr. Armstrong continue for a total of 2 weeks - Discontinued 08/05/17 ID consult: Dr. Armstrong --> help appreciated Urinary retention 07/21: NS stopped because tube feeds restarted 07/20: Urine dark in color, monitor, continue NS at 50 ml per hour 07/07/17: Catheter flushed, patient output approx. 500mL within one hour post flush. 06/27/17: Continue bladder massages to aid in voiding. 06/25/17: Patient voids with movement. Continue bladder massages to aid in voiding. 06/23/17: Patient will need to have daily bladder massage to allow for complete voiding 06/17/17: Nursing communication placed in: straight catherization with bladder scan> 100ml 06/08: urinary retention yesterday, was given 40mg lasix iv and patient was able to urinate through condom baker Take note condom cath not always securely in place so Is and Os are approximate as patient does wet bed Ordered- new condom catheter on 05/22/17 Flomax 0.4mg PEG daily Proscar 5mg PEG daily continue Bethanecol 50mg PEG TID- started after persistent retention and found to be effective. monitor I's and O's - I/O: 780/350 Check bladder scan for residual urine three times weekly Hypokalemia K+ on 08/10: 4.2 Sacral ulcer Healed Cont with offloading/cushioning/turning Continue frequent turning, protective ointment and skin checks. History of coronary artery disease s/p cardiac stents on 06/13/15 Cont ASA 81mg via PEG daily Cont Coreg 3.125mg PEG BID Cont Plavix 75 mg PEG daily Seizures Continue Keppra 500mg PEG BID for seizure prophylaxis Monitor for activity Lower extremity edema Improved SCDs in place Pressure ulcer boots on b/l Continue to monitor Prophylactic measure Pepcid 20 mg PEG BID Lovenox 40mg SC daily SCDs and offloading boots continue to turn and reposition q2hrs Continue to monitor medication administrations and clinical presentation weekly labs. vasoline ointment applied to feet prn to prevent hyperkeratosis Please hold feeding from 10pm-6am, placed into nursing communication Vitamin A & D for lips No update at this time. Will discuss case with Dr. Palmira Melendez Carola PGY1 <Amandeep Chavis H - Last Filed: 08/25/17 07:09> Objective - Vital Signs/Intake and Output Vital Signs (last 24 hours): Temp Pulse Resp BP Pulse Ox 97.9 F 84 20 126/81 100 08/24/17 23:38 08/24/17 23:38 08/24/17 23:38 08/24/17 23:38 08/24/17 23:38 Intake and Output: 08/25/17 08/25/17 06:59 18:59 Intake Total 1610 Output Total 900 Balance 710 - Medications Medications: Current Medications Acetylcysteine (Acetylcysteine 20%) 4 ml INH RQ8 [facility] Last Admin: 08/25/17 00:34 Dose: 4 ml Albuterol/Ipratropium (Duoneb 3 Mg/0.5 Mg (3 Ml) Ud) 3 ml INH RQ6 PRN PRN Reason: Wheezing Last Admin: 08/25/17 00:34 Dose: 3 ml Aspirin (Aspirin Chewable) 81 mg PEG DAILY [facility] Last Admin: 08/24/17 10:07 Dose: 81 mg Bethanechol Chloride (Urecholine) 50 mg PEG TID [facility] Last Admin: 08/24/17 17:38 Dose: 50 mg Carvedilol (Coreg) 3.125 mg PEG BID [facility] Last Admin: 08/24/17 17:38 Dose: 3.125 mg Clopidogrel Bisulfate (Plavix) 75 mg PEG DAILY [facility] Last Admin: 08/24/17 10:07 Dose: 75 mg Emollient Ointment (Vaseline Oint) 5 gm TOP DAILY PRN PRN Reason: Dry skin Last Admin: 08/20/17 18:40 Dose: 5 gm Enoxaparin Sodium (Lovenox) 40 mg SC DAILY [facility] Last Admin: 08/24/17 10:07 Dose: 40 mg Famotidine (Pepcid) 20 mg PEG DAILY [facility] Last Admin: 08/24/17 10:07 Dose: 20 mg Finasteride (Proscar) 5 mg PEG DAILY [facility] Last Admin: 08/24/17 10:06 Dose: 5 mg Levetiracetam (Keppra) 500 mg PEG BID [facility] Last Admin: 08/24/17 17:34 Dose: 500 mg Saccharomyces Boulardii (Florastor) 250 mg PEG DAILY [facility] Last Admin: 08/24/17 10:06 Dose: 250 mg Scopolamine (Transderm-Scop) 1 patch TD Q3D [facility] Last Admin: 08/24/17 21:20 Dose: 1 patch Tamsulosin HCl (Flomax) 0.4 mg PEG DAILY [facility] Last Admin: 08/24/17 10:06 Dose: 0.4 mg Vitamin A (Vitamin A & D Oint Ud Foilpak) 1 ea TOP BID [facility] Last Admin: 08/24/17 18:20 Dose: 1 ea - Labs Labs: 08/24/17 07:07 08/24/17 07:07 PT 10.6 SECONDS (9.7-12.2) 11/24/15 14:10 INR 1.0 11/24/15 14:10 APTT 25 SECONDS (21-34) 11/24/15 14:10 Assessment and Plan (1) Prophylactic measure Status: Acute (2) Anoxic encephalopathy Status: Chronic (3) STEMI (ST elevation myocardial infarction) Status: Acute (4) Cardiac arrest Status: Acute (5) Seizures Status: Acute (6) Respiratory failure Status: Chronic Attending/Attestation - Attestation I have personally seen and examined this patient.: Yes I have fully participated in the care of the patient.: Yes I have reviewed all pertinent clinical information, including history, physical exam and plan: Yes
[2017-08-25] MEDS: Albuterol-Ipratrop 3 mg / 0.5 (3 ml) UD INH PRN ×4 (00:34→23:51)
[2017-08-25] MEDS: Acetylcysteine 20% Inhal Soln (4ml) INH SCH ×4 (00:34→23:51)
--- NOTE | 2017-08-25 07:36 | CP.PCM.PN ---
Subjective - Date & Time of Evaluation Date of Evaluation: 08/25/17 Time of Evaluation: 07:00 - Subjective Subjective: PGY1 Progress note for Dr. Chavis Patient seen and examined at bedside. Patient has had an anoxic brain injury. ROS is unobtainable. Objective - Vital Signs/Intake and Output Vital Signs (last 24 hours): Temp Pulse Resp BP Pulse Ox 97.9 F 84 20 126/81 100 08/24/17 23:38 08/24/17 23:38 08/24/17 23:38 08/24/17 23:38 08/24/17 23:38 Intake and Output: 08/25/17 08/25/17 06:59 18:59 Intake Total 1610 Output Total 900 Balance 710 - Medications Medications: Current Medications Acetylcysteine (Acetylcysteine 20%) 4 ml INH RQ8 [facility] Last Admin: 08/25/17 00:34 Dose: 4 ml Albuterol/Ipratropium (Duoneb 3 Mg/0.5 Mg (3 Ml) Ud) 3 ml INH RQ6 PRN PRN Reason: Wheezing Last Admin: 08/25/17 00:34 Dose: 3 ml Aspirin (Aspirin Chewable) 81 mg PEG DAILY [facility] Last Admin: 08/24/17 10:07 Dose: 81 mg Bethanechol Chloride (Urecholine) 50 mg PEG TID [facility] Last Admin: 08/24/17 17:38 Dose: 50 mg Carvedilol (Coreg) 3.125 mg PEG BID [facility] Last Admin: 08/24/17 17:38 Dose: 3.125 mg Clopidogrel Bisulfate (Plavix) 75 mg PEG DAILY [facility] Last Admin: 08/24/17 10:07 Dose: 75 mg Emollient Ointment (Vaseline Oint) 5 gm TOP DAILY PRN PRN Reason: Dry skin Last Admin: 08/20/17 18:40 Dose: 5 gm Enoxaparin Sodium (Lovenox) 40 mg SC DAILY [facility] Last Admin: 08/24/17 10:07 Dose: 40 mg Famotidine (Pepcid) 20 mg PEG DAILY [facility] Last Admin: 08/24/17 10:07 Dose: 20 mg Finasteride (Proscar) 5 mg PEG DAILY [facility] Last Admin: 08/24/17 10:06 Dose: 5 mg Levetiracetam (Keppra) 500 mg PEG BID [facility] Last Admin: 08/24/17 17:34 Dose: 500 mg Saccharomyces Boulardii (Florastor) 250 mg PEG DAILY [facility] Last Admin: 08/24/17 10:06 Dose: 250 mg Scopolamine (Transderm-Scop) 1 patch TD Q3D [facility] Last Admin: 08/24/17 21:20 Dose: 1 patch Tamsulosin HCl (Flomax) 0.4 mg PEG DAILY [facility] Last Admin: 08/24/17 10:06 Dose: 0.4 mg Vitamin A (Vitamin A & D Oint Ud Foilpak) 1 ea TOP BID [facility] Last Admin: 08/24/17 18:20 Dose: 1 ea - Labs Labs: 08/24/17 07:07 08/24/17 07:07 PT 10.6 SECONDS (9.7-12.2) 11/24/15 14:10 INR 1.0 11/24/15 14:10 APTT 25 SECONDS (21-34) 11/24/15 14:10 - Constitutional Appears: Chronically Ill - Head Exam Head Exam: ATRAUMATIC, NORMOCEPHALIC - Eye Exam Eye Exam: absent: Scleral icterus - ENT Exam ENT Exam: Mucous Membranes Moist - Neck Exam Additional comments: trach in place - Respiratory Exam Respiratory Exam: Rales (scattered throughout, may need trach to just be suctioned). absent: Wheezes, Respiratory Distress - Cardiovascular Exam Cardiovascular Exam: REGULAR RHYTHM, +S1, +S2. absent: JVD - GI/Abdominal Exam GI & Abdominal Exam: Soft. absent: Distended, Guarding, Rigid, Tenderness Additional comments: PEG in place - Extremities Exam Extremities Exam: absent: Calf Tenderness, Pedal Edema Additional comments: SCDs/pressure ulcer boots in place. - Neurological Exam Neurological Exam: Altered (2/2 anoxic brain injury) - Skin Skin Exam: Dry, Warm Assessment and Plan - Assessment and Plan (Free Text) Assessment: Anoxic encephalopathy s/p cardiac arrest in 05/2015 no acute changes Pt has non spontaneous movements. Continue tube feeds- goal of 60ml/hr, feedings held at night due to fluid overload Respiratory failure Trach in place, continue daily monitoring for secretions. No change in management at this time. Continue with aggressive suctioning multiple times a day per respiratory therapist. Monitor for signs of respiratory distress Thick secretions Duoneb 3ml INH Q6 and Mucomyst 4ml INH Q6H Scopolamine 1 patch TD Q3D [facility] Repeat CXR on 05/28/17: linear increased consolidative changes in the right mid- lung zone and left lung base which may represent atelectasis and/or infiltrate. Questionable trace left pleural effusion. moderate venous congestion. cardiomegaly. degenerative changes in the spine and shoulders Leukocytosis secondary to UTI. Resolved 08/10: WBC 8.2 afebrile Meropenem (started 07/22) - per Dr. Armstrong continue for a total of 2 weeks - Discontinued 08/05/17 ID consult: Dr. Armstrong --> help appreciated Urinary retention 07/21: NS stopped because tube feeds restarted 07/20: Urine dark in color, monitor, continue NS at 50 ml per hour 07/07/17: Catheter flushed, patient output approx. 500mL within one hour post flush. 06/27/17: Continue bladder massages to aid in voiding. 06/25/17: Patient voids with movement. Continue bladder massages to aid in voiding. 06/23/17: Patient will need to have daily bladder massage to allow for complete voiding 06/17/17: Nursing communication placed in: straight catherization with bladder scan> 100ml 06/08: urinary retention yesterday, was given 40mg lasix iv and patient was able to urinate through condom baker Take note condom cath not always securely in place so Is and Os are approximate as patient does wet bed Ordered- new condom catheter on 05/22/17 Flomax 0.4mg PEG daily Proscar 5mg PEG daily continue Bethanecol 50mg PEG TID- started after persistent retention and found to be effective. monitor I's and O's - I/O: 780/350 Check bladder scan for residual urine three times weekly Hypokalemia K+ on 08/10: 4.2 Sacral ulcer Healed Cont with offloading/cushioning/turning Continue frequent turning, protective ointment and skin checks. History of coronary artery disease s/p cardiac stents on 06/13/15 Cont ASA 81mg via PEG daily Cont Coreg 3.125mg PEG BID Cont Plavix 75 mg PEG daily Seizures Continue Keppra 500mg PEG BID for seizure prophylaxis Monitor for activity Lower extremity edema Improved SCDs in place Pressure ulcer boots on b/l Continue to monitor Prophylactic measure Pepcid 20 mg PEG BID Lovenox 40mg SC daily SCDs and offloading boots continue to turn and reposition q2hrs Continue to monitor medication administrations and clinical presentation weekly labs. vasoline ointment applied to feet prn to prevent hyperkeratosis Please hold feeding from 10pm-6am, placed into nursing communication Vitamin A & D for lips No update at this time. Will discuss case with Dr. Palmira Melendez Carola PGY1
[2017-08-25] MEDS: Saccharomyces Boulardi 250 mg Cap PEG SCH (10:06)
[2017-08-25] MEDS: Enoxaparin 40 mg Syringe SC SCH (10:06)
[2017-08-25] MEDS: levETIRAcetam 100 mg/ml (5ml) Oral Syringe PEG SCH ×3 (10:06→17:25)
[2017-08-25] MEDS: Vitamins A & D Oint UD Foilpak TOP SCH ×2 (10:07→17:23)
[2017-08-26] MEDS: Acetylcysteine 20% Inhal Soln (4ml) INH SCH ×2 (07:43→20:28)
[2017-08-26] MEDS: Albuterol-Ipratrop 3 mg / 0.5 (3 ml) UD INH PRN ×2 (07:43→20:27)
--- NOTE | 2017-08-26 09:04 | CP.PCM.PN ---
<Al Srivastava - Last Filed: 08/26/17 11:43> Subjective - Date & Time of Evaluation Date of Evaluation: 08/26/17 Time of Evaluation: 06:50 - Subjective Subjective: PGY1 Progress note for Dr. Chavis Patient seen and examined at bedside. Patient has had an anoxic brain injury. ROS is unobtainable. Objective - Vital Signs/Intake and Output Vital Signs (last 24 hours): Temp Pulse Resp BP Pulse Ox 98.5 F 77 20 136/84 100 08/26/17 07:41 08/26/17 07:41 08/26/17 07:41 08/26/17 07:41 08/26/17 07:41 Intake and Output: 08/26/17 08/26/17 06:59 18:59 Intake Total 780 Output Total 300 Balance 480 - Medications Medications: Current Medications Acetylcysteine (Acetylcysteine 20%) 4 ml INH RQ8 [facility], [facility] Last Admin: 08/26/17 07:43 Dose: 4 ml Albuterol/Ipratropium (Duoneb 3 Mg/0.5 Mg (3 Ml) Ud) 3 ml INH RQ6 PRN PRN Reason: Wheezing Last Admin: 08/26/17 07:43 Dose: 3 ml Aspirin (Aspirin Chewable) 81 mg PEG DAILY [facility] Last Admin: 08/25/17 10:06 Dose: 81 mg Bethanechol Chloride (Urecholine) 50 mg PEG TID [facility] Last Admin: 08/25/17 17:23 Dose: 50 mg Carvedilol (Coreg) 3.125 mg PEG BID [facility] Last Admin: 08/25/17 17:23 Dose: 3.125 mg Clopidogrel Bisulfate (Plavix) 75 mg PEG DAILY [facility] Last Admin: 08/25/17 10:07 Dose: 75 mg Emollient Ointment (Vaseline Oint) 5 gm TOP DAILY PRN PRN Reason: Dry skin Last Admin: 08/20/17 18:40 Dose: 5 gm Enoxaparin Sodium (Lovenox) 40 mg SC DAILY [facility] Last Admin: 08/25/17 10:06 Dose: 40 mg Famotidine (Pepcid) 20 mg PEG DAILY [facility] Last Admin: 08/25/17 10:07 Dose: 20 mg Finasteride (Proscar) 5 mg PEG DAILY [facility] Last Admin: 08/25/17 10:07 Dose: 5 mg Levetiracetam (Keppra) 500 mg PEG BID [facility] Last Admin: 08/25/17 17:25 Dose: 500 mg Saccharomyces Boulardii (Florastor) 250 mg PEG DAILY [facility] Last Admin: 08/25/17 10:06 Dose: 250 mg Scopolamine (Transderm-Scop) 1 patch TD Q3D [facility] Last Admin: 08/24/17 21:20 Dose: 1 patch Tamsulosin HCl (Flomax) 0.4 mg PEG DAILY [facility] Last Admin: 08/25/17 10:06 Dose: 0.4 mg Vitamin A (Vitamin A & D Oint Ud Foilpak) 1 ea TOP BID [facility] Last Admin: 08/25/17 17:23 Dose: 1 ea - Labs Labs: 08/24/17 07:07 08/24/17 07:07 PT 10.6 SECONDS (9.7-12.2) 11/24/15 14:10 INR 1.0 11/24/15 14:10 APTT 25 SECONDS (21-34) 11/24/15 14:10 - Constitutional Appears: No Acute Distress, Chronically Ill - Head Exam Head Exam: ATRAUMATIC, NORMOCEPHALIC - ENT Exam ENT Exam: Mucous Membranes Moist - Respiratory Exam Respiratory Exam: Rales (throughout b/l), NORMAL BREATHING PATTERN. absent: Accessory Muscle Use, Respiratory Distress - Cardiovascular Exam Cardiovascular Exam: REGULAR RHYTHM, +S1, +S2 - GI/Abdominal Exam GI & Abdominal Exam: Soft, Normal Bowel Sounds. absent: Distended, Firm, Guarding, Rigid, Tenderness Additional comments: PEG in place. - Extremities Exam Additional comments: SCDs and pressure ulcer boots in place. - Neurological Exam Neurological Exam: Altered (due to anoxic brain injury in 2014) - Skin Skin Exam: Dry, Warm Assessment and Plan - Assessment and Plan (Free Text) Assessment: Anoxic encephalopathy s/p cardiac arrest in 05/2015 no acute changes Pt has non spontaneous movements. Continue tube feeds- goal of 60ml/hr, feedings held at night due to fluid overload Respiratory failure Trach in place, continue daily monitoring for secretions. No change in management at this time. Continue with aggressive suctioning multiple times a day per respiratory therapist. Monitor for signs of respiratory distress Thick secretions Duoneb 3ml INH Q6 and Mucomyst 4ml INH Q6H Scopolamine 1 patch TD Q3D [facility] Repeat CXR on 05/28/17: linear increased consolidative changes in the right mid- lung zone and left lung base which may represent atelectasis and/or infiltrate. Questionable trace left pleural effusion. moderate venous congestion. cardiomegaly. degenerative changes in the spine and shoulders Leukocytosis secondary to UTI. Resolved 08/10: WBC 8.2 afebrile Meropenem (started 07/22) - per Dr. Armstrong continue for a total of 2 weeks - Discontinued 08/05/17 ID consult: Dr. Armstrong --> help appreciated Urinary retention 07/21: NS stopped because tube feeds restarted 07/20: Urine dark in color, monitor, continue NS at 50 ml per hour 07/07/17: Catheter flushed, patient output approx. 500mL within one hour post flush. 06/27/17: Continue bladder massages to aid in voiding. 06/25/17: Patient voids with movement. Continue bladder massages to aid in voiding. 06/23/17: Patient will need to have daily bladder massage to allow for complete voiding 06/17/17: Nursing communication placed in: straight catherization with bladder scan> 100ml 06/08: urinary retention yesterday, was given 40mg lasix iv and patient was able to urinate through condom baker Take note condom cath not always securely in place so Is and Os are approximate as patient does wet bed Ordered- new condom catheter on 05/22/17 Flomax 0.4mg PEG daily Proscar 5mg PEG daily continue Bethanecol 50mg PEG TID- started after persistent retention and found to be effective. monitor I's and O's - I/O: 780/350 Check bladder scan for residual urine three times weekly Hypokalemia K+ on 08/10: 4.2 Sacral ulcer Healed Cont with offloading/cushioning/turning Continue frequent turning, protective ointment and skin checks. History of coronary artery disease s/p cardiac stents on 06/13/15 Cont ASA 81mg via PEG daily Cont Coreg 3.125mg PEG BID Cont Plavix 75 mg PEG daily Seizures Continue Keppra 500mg PEG BID for seizure prophylaxis Monitor for activity Lower extremity edema Improved SCDs in place Pressure ulcer boots on b/l Continue to monitor Prophylactic measure Pepcid 20 mg PEG BID Lovenox 40mg SC daily SCDs and offloading boots continue to turn and reposition q2hrs Continue to monitor medication administrations and clinical presentation weekly labs. vasoline ointment applied to feet prn to prevent hyperkeratosis Please hold feeding from 10pm-6am, placed into nursing communication Vitamin A & D for lips No update at this time. Will discuss case with Dr. Palmira Melendez Carola PGY1 <Amandeep Chavis H - Last Filed: 08/26/17 11:50> Objective - Vital Signs/Intake and Output Vital Signs (last 24 hours): Temp Pulse Resp BP Pulse Ox 98.5 F 77 20 136/84 100 08/26/17 07:41 08/26/17 07:41 08/26/17 07:41 08/26/17 07:41 08/26/17 07:41 Intake and Output: 08/26/17 08/26/17 06:59 18:59 Intake Total 780 Output Total 300 Balance 480 - Medications Medications: Current Medications Acetylcysteine (Acetylcysteine 20%) 4 ml INH RQ8 [facility] Last Admin: 08/26/17 07:43 Dose: 4 ml Albuterol/Ipratropium (Duoneb 3 Mg/0.5 Mg (3 Ml) Ud) 3 ml INH RQ6 PRN PRN Reason: Wheezing Last Admin: 08/26/17 07:43 Dose: 3 ml Aspirin (Aspirin Chewable) 81 mg PEG DAILY [facility] Last Admin: 08/26/17 11:34 Dose: 81 mg Bethanechol Chloride (Urecholine) 50 mg PEG TID [facility] Last Admin: 08/26/17 11:34 Dose: 50 mg Carvedilol (Coreg) 3.125 mg PEG BID [facility] Last Admin: 08/26/17 11:34 Dose: 3.125 mg Clopidogrel Bisulfate (Plavix) 75 mg PEG DAILY [facility] Last Admin: 08/26/17 11:43 Dose: 75 mg Emollient Ointment (Vaseline Oint) 5 gm TOP DAILY PRN PRN Reason: Dry skin Last Admin: 08/20/17 18:40 Dose: 5 gm Enoxaparin Sodium (Lovenox) 40 mg SC DAILY [facility] Last Admin: 08/26/17 11:34 Dose: 40 mg Famotidine (Pepcid) 20 mg PEG DAILY [facility] Last Admin: 08/26/17 11:34 Dose: 20 mg Finasteride (Proscar) 5 mg PEG DAILY [facility] Last Admin: 08/26/17 11:34 Dose: 5 mg Levetiracetam (Keppra) 500 mg PEG BID [facility] Last Admin: 08/26/17 11:35 Dose: 500 mg Saccharomyces Boulardii (Florastor) 250 mg PEG DAILY [facility] Last Admin: 08/26/17 11:36 Dose: 250 mg Scopolamine (Transderm-Scop) 1 patch TD Q3D [facility] Last Admin: 08/24/17 21:20 Dose: 1 patch Tamsulosin HCl (Flomax) 0.4 mg PEG DAILY [facility] Last Admin: 08/26/17 11:34 Dose: 0.4 mg Vitamin A (Vitamin A & D Oint Ud Foilpak) 1 ea TOP BID [facility] Last Admin: 08/26/17 11:35 Dose: 1 ea - Labs Labs: 08/24/17 07:07 08/24/17 07:07 PT 10.6 SECONDS (9.7-12.2) 11/24/15 14:10 INR 1.0 11/24/15 14:10 APTT 25 SECONDS (21-34) 11/24/15 14:10 Assessment and Plan (1) Prophylactic measure Status: Acute (2) Anoxic encephalopathy Status: Chronic (3) STEMI (ST elevation myocardial infarction) Status: Acute (4) Cardiac arrest Status: Acute (5) Seizures Status: Acute (6) Respiratory failure Status: Chronic Attending/Attestation - Attestation I have personally seen and examined this patient.: Yes I have fully participated in the care of the patient.: Yes I have reviewed all pertinent clinical information, including history, physical exam and plan: Yes Notes (Text): 08/26/17 11:48 Medical Attending: Patient was seen and examined by me. Now new acute changes. Situation is not changed from before. The patient just had a new PICC/Midline placement thank you Amandeep Chavis
[2017-08-26] MEDS: Enoxaparin 40 mg Syringe SC SCH (11:34)
[2017-08-26] MEDS: Vitamins A & D Oint UD Foilpak TOP SCH ×2 (11:35→17:31)
[2017-08-26] MEDS: levETIRAcetam 100 mg/ml (5ml) Oral Syringe PEG SCH ×2 (11:35→17:31)
[2017-08-26] MEDS: Saccharomyces Boulardi 250 mg Cap PEG SCH (11:36)
[2017-08-27] MEDS: Albuterol-Ipratrop 3 mg / 0.5 (3 ml) UD INH PRN ×3 (01:48→15:24)
[2017-08-27] MEDS: Acetylcysteine 20% Inhal Soln (4ml) INH SCH ×3 (01:48→15:24)
--- NOTE | 2017-08-27 07:53 | CP.PCM.PN ---
Subjective - Date & Time of Evaluation Date of Evaluation: 08/27/17 Time of Evaluation: 07:30 - Subjective Subjective: PGY1 Medicine Note for Dr. Chavis Patient seen and examined at bedside. Patient is non-verbal as he had an anoxic brain injury in 2014. ROS is unobtainable. Objective - Vital Signs/Intake and Output Vital Signs (last 24 hours): Temp Pulse Resp BP Pulse Ox 98.7 F 80 20 112/73 98 08/27/17 07:43 08/27/17 07:43 08/27/17 07:43 08/27/17 07:43 08/27/17 07:43 Intake and Output: 08/27/17 08/27/17 06:59 18:59 Intake Total 780 Output Total 880 Balance -100 - Medications Medications: Current Medications Acetylcysteine (Acetylcysteine 20%) 4 ml INH RQ8 [facility] Last Admin: 08/27/17 01:48 Dose: 4 ml Albuterol/Ipratropium (Duoneb 3 Mg/0.5 Mg (3 Ml) Ud) 3 ml INH RQ6 PRN PRN Reason: Wheezing Last Admin: 08/27/17 01:48 Dose: 3 ml Aspirin (Aspirin Chewable) 81 mg PEG DAILY [facility] Last Admin: 08/26/17 11:34 Dose: 81 mg Bethanechol Chloride (Urecholine) 50 mg PEG TID [facility] Last Admin: 08/26/17 17:31 Dose: 50 mg Carvedilol (Coreg) 3.125 mg PEG BID [facility] Last Admin: 08/26/17 17:31 Dose: 3.125 mg Clopidogrel Bisulfate (Plavix) 75 mg PEG DAILY [facility] Last Admin: 08/26/17 11:43 Dose: 75 mg Emollient Ointment (Vaseline Oint) 5 gm TOP DAILY PRN PRN Reason: Dry skin Last Admin: 08/20/17 18:40 Dose: 5 gm Enoxaparin Sodium (Lovenox) 40 mg SC DAILY [facility] Last Admin: 08/26/17 11:34 Dose: 40 mg Famotidine (Pepcid) 20 mg PEG DAILY [facility] Last Admin: 08/26/17 11:34 Dose: 20 mg Finasteride (Proscar) 5 mg PEG DAILY [facility] Last Admin: 08/26/17 11:34 Dose: 5 mg Levetiracetam (Keppra) 500 mg PEG BID [facility] Last Admin: 08/26/17 17:31 Dose: 500 mg Saccharomyces Boulardii (Florastor) 250 mg PEG DAILY [facility] Last Admin: 08/26/17 11:36 Dose: 250 mg Scopolamine (Transderm-Scop) 1 patch TD Q3D [facility] Last Admin: 08/24/17 21:20 Dose: 1 patch Tamsulosin HCl (Flomax) 0.4 mg PEG DAILY [facility] Last Admin: 08/26/17 11:34 Dose: 0.4 mg Vitamin A (Vitamin A & D Oint Ud Foilpak) 1 ea TOP BID [facility] Last Admin: 08/26/17 17:31 Dose: 1 ea - Labs Labs: 08/24/17 07:07 08/24/17 07:07 PT 10.6 SECONDS (9.7-12.2) 11/24/15 14:10 INR 1.0 11/24/15 14:10 APTT 25 SECONDS (21-34) 11/24/15 14:10 - Constitutional Appears: No Acute Distress, Chronically Ill - Head Exam Head Exam: ATRAUMATIC, NORMOCEPHALIC - ENT Exam ENT Exam: Mucous Membranes Moist - Neck Exam Additional comments: trach in place - Respiratory Exam Respiratory Exam: Rales (scattered throughout). absent: Accessory Muscle Use, Respiratory Distress - Cardiovascular Exam Cardiovascular Exam: REGULAR RHYTHM, +S1, +S2. absent: JVD - GI/Abdominal Exam GI & Abdominal Exam: Distended, Soft, Normal Bowel Sounds. absent: Firm, Guarding, Rigid, Tenderness Additional comments: PEG tube in place. - Exam Additional comments: condom cath in place - Extremities Exam Extremities Exam: absent: Calf Tenderness, Pedal Edema Additional comments: SCDs and pressure ulcer boots in place - Neurological Exam Neurological Exam: Altered (anoxic brain injury in 2015) - Skin Skin Exam: Dry, Warm Assessment and Plan - Assessment and Plan (Free Text) Assessment: Anoxic encephalopathy s/p cardiac arrest in 05/2015 no acute changes Pt has non spontaneous movements. Continue tube feeds- goal of 60ml/hr, feedings held at night due to fluid overload Respiratory failure Trach in place, continue daily monitoring for secretions. No change in management at this time. Continue with aggressive suctioning multiple times a day per respiratory therapist. Monitor for signs of respiratory distress Thick secretions Duoneb 3ml INH Q6 and Mucomyst 4ml INH Q6H Scopolamine 1 patch TD Q3D [facility] Repeat CXR on 05/28/17: linear increased consolidative changes in the right mid- lung zone and left lung base which may represent atelectasis and/or infiltrate. Questionable trace left pleural effusion. moderate venous congestion. cardiomegaly. degenerative changes in the spine and shoulders Leukocytosis secondary to UTI. Resolved 08/10: WBC 8.2 afebrile Meropenem (started 07/22) - per Dr. Armstrong continue for a total of 2 weeks - Discontinued 08/05/17 ID consult: Dr. Armstrong --> help appreciated Urinary retention 07/21: NS stopped because tube feeds restarted 07/20: Urine dark in color, monitor, continue NS at 50 ml per hour 07/07/17: Catheter flushed, patient output approx. 500mL within one hour post flush. 06/27/17: Continue bladder massages to aid in voiding. 06/25/17: Patient voids with movement. Continue bladder massages to aid in voiding. 06/23/17: Patient will need to have daily bladder massage to allow for complete voiding 06/17/17: Nursing communication placed in: straight catherization with bladder scan> 100ml 06/08: urinary retention yesterday, was given 40mg lasix iv and patient was able to urinate through condom baker Take note condom cath not always securely in place so Is and Os are approximate as patient does wet bed Ordered- new condom catheter on 05/22/17 Flomax 0.4mg PEG daily Proscar 5mg PEG daily continue Bethanecol 50mg PEG TID- started after persistent retention and found to be effective. monitor I's and O's - I/O: 780/350 Check bladder scan for residual urine three times weekly Hypokalemia K+ on 08/10: 4.2 Sacral ulcer Healed Cont with offloading/cushioning/turning Continue frequent turning, protective ointment and skin checks. History of coronary artery disease s/p cardiac stents on 06/13/15 Cont ASA 81mg via PEG daily Cont Coreg 3.125mg PEG BID Cont Plavix 75 mg PEG daily Seizures Continue Keppra 500mg PEG BID for seizure prophylaxis Monitor for activity Lower extremity edema Improved SCDs in place Pressure ulcer boots on b/l Continue to monitor Prophylactic measure Pepcid 20 mg PEG BID Lovenox 40mg SC daily SCDs and offloading boots continue to turn and reposition q2hrs Continue to monitor medication administrations and clinical presentation weekly labs. vasoline ointment applied to feet prn to prevent hyperkeratosis Please hold feeding from 10pm-6am, placed into nursing communication Vitamin A & D for lips No update at this time. Will discuss case with Dr. Palmira Melendez Carola PGY1
[2017-08-27] MEDS: Enoxaparin 40 mg Syringe SC SCH (09:50)
[2017-08-27] MEDS: Vitamins A & D Oint UD Foilpak TOP SCH ×2 (09:50→17:32)
[2017-08-27] MEDS: Saccharomyces Boulardi 250 mg Cap PEG SCH (09:50)
[2017-08-27] MEDS: levETIRAcetam 100 mg/ml (5ml) Oral Syringe PEG SCH ×2 (09:51→17:28)
[2017-08-28] MEDS: Acetylcysteine 20% Inhal Soln (4ml) INH SCH ×3 (01:11→16:28)
[2017-08-28] MEDS: Albuterol-Ipratrop 3 mg / 0.5 (3 ml) UD INH PRN ×2 (01:11→08:38)
--- NOTE | 2017-08-28 07:45 | CP.PCM.PN ---
<Tanya Campos - Last Filed: 08/28/17 07:44> Subjective - Date & Time of Evaluation Date of Evaluation: 08/28/17 Time of Evaluation: 07:00 - Subjective Subjective: Medicine Note for Dr. Chavis Patient seen and examined at bedside. Patient is non-verbal as he had an anoxic brain injury in 2014. ROS is unobtainable. Objective - Vital Signs/Intake and Output Vital Signs (last 24 hours): Temp Pulse Resp BP Pulse Ox 98.4 F 90 20 117/75 100 08/28/17 07:32 08/28/17 07:32 08/28/17 07:32 08/28/17 07:32 08/28/17 07:32 Intake and Output: 08/28/17 08/28/17 06:59 18:59 Intake Total 1860 Output Total 950 Balance 910 - Medications Medications: Current Medications Acetylcysteine (Acetylcysteine 20%) 4 ml INH RQ8 [facility] Last Admin: 08/28/17 01:11 Dose: 4 ml Albuterol/Ipratropium (Duoneb 3 Mg/0.5 Mg (3 Ml) Ud) 3 ml INH RQ6 PRN PRN Reason: Wheezing Last Admin: 08/28/17 01:11 Dose: 3 ml Aspirin (Aspirin Chewable) 81 mg PEG DAILY [facility] Last Admin: 08/27/17 09:50 Dose: 81 mg Bethanechol Chloride (Urecholine) 50 mg PEG TID [facility] Last Admin: 08/27/17 17:27 Dose: 50 mg Carvedilol (Coreg) 3.125 mg PEG BID [facility] Last Admin: 08/27/17 17:28 Dose: 3.125 mg Clopidogrel Bisulfate (Plavix) 75 mg PEG DAILY [facility] Last Admin: 08/27/17 09:50 Dose: 75 mg Emollient Ointment (Vaseline Oint) 5 gm TOP DAILY PRN PRN Reason: Dry skin Last Admin: 08/20/17 18:40 Dose: 5 gm Enoxaparin Sodium (Lovenox) 40 mg SC DAILY [facility] Last Admin: 08/27/17 09:50 Dose: 40 mg Famotidine (Pepcid) 20 mg PEG DAILY [facility] Last Admin: 08/27/17 09:50 Dose: 20 mg Finasteride (Proscar) 5 mg PEG DAILY [facility] Last Admin: 08/27/17 09:51 Dose: 5 mg Levetiracetam (Keppra) 500 mg PEG BID [facility] Last Admin: 08/27/17 17:28 Dose: 500 mg Saccharomyces Boulardii (Florastor) 250 mg PEG DAILY [facility] Last Admin: 08/27/17 09:50 Dose: 250 mg Scopolamine (Transderm-Scop) 1 patch TD Q3D [facility] Last Admin: 08/24/17 21:20 Dose: 1 patch Tamsulosin HCl (Flomax) 0.4 mg PEG DAILY [facility] Last Admin: 08/27/17 09:50 Dose: 0.4 mg Vitamin A (Vitamin A & D Oint Ud Foilpak) 1 ea TOP BID [facility] Last Admin: 08/27/17 17:32 Dose: 1 ea - Labs Labs: 08/24/17 07:07 08/24/17 07:07 PT 10.6 SECONDS (9.7-12.2) 11/24/15 14:10 INR 1.0 11/24/15 14:10 APTT 25 SECONDS (21-34) 11/24/15 14:10 - Additional Findings Additional findings: - Constitutional Appears: No Acute Distress, Chronically Ill - Head Exam Head Exam: ATRAUMATIC, NORMOCEPHALIC - ENT Exam ENT Exam: Mucous Membranes Moist - Neck Exam Additional comments: trach in place - Respiratory Exam Respiratory Exam: Rales (scattered throughout). absent: Accessory Muscle Use, Respiratory Distress - Cardiovascular Exam Cardiovascular Exam: REGULAR RHYTHM, +S1, +S2. absent: JVD - GI/Abdominal Exam GI & Abdominal Exam: Distended, Soft, Normal Bowel Sounds. absent: Firm, Guarding, Rigid, Tenderness Additional comments: PEG tube in place. - Exam Additional comments: condom cath in place - Extremities Exam Extremities Exam: absent: Calf Tenderness, Pedal Edema Additional comments: SCDs and pressure ulcer boots in place - Neurological Exam Neurological Exam: Altered (anoxic brain injury in 2014) - Skin Skin Exam: Dry, Warm Assessment and Plan - Assessment and Plan (Free Text) Plan: Anoxic encephalopathy s/p cardiac arrest in 05/2015 no acute changes Pt has non spontaneous movements. Continue tube feeds- goal of 60ml/hr, feedings held at night due to fluid overload Respiratory failure Trach in place, continue daily monitoring for secretions. No change in management at this time. Continue with aggressive suctioning multiple times a day per respiratory therapist. Monitor for signs of respiratory distress Thick secretions Duoneb 3ml INH Q6 and Mucomyst 4ml INH Q6H Scopolamine 1 patch TD Q3D JOO Repeat CXR on 05/28/17: linear increased consolidative changes in the right mid- lung zone and left lung base which may represent atelectasis and/or infiltrate. Questionable trace left pleural effusion. moderate venous congestion. cardiomegaly. degenerative changes in the spine and shoulders Leukocytosis secondary to UTI. Resolved 08/10: WBC 8.2 afebrile Meropenem (started 07/22) - per Dr. Armstrong continue for a total of 2 weeks - Discontinued 08/05/17 ID consult: Dr. Armstrong --> help appreciated Urinary retention 07/21: NS stopped because tube feeds restarted 07/20: Urine dark in color, monitor, continue NS at 50 ml per hour 07/07/17: Catheter flushed, patient output approx. 500mL within one hour post flush. 06/27/17: Continue bladder massages to aid in voiding. 06/25/17: Patient voids with movement. Continue bladder massages to aid in voiding. 06/23/17: Patient will need to have daily bladder massage to allow for complete voiding 06/17/17: Nursing communication placed in: straight catherization with bladder scan> 100ml 06/08: urinary retention yesterday, was given 40mg lasix iv and patient was able to urinate through condom baker Take note condom cath not always securely in place so Is and Os are approximate as patient does wet bed Ordered- new condom catheter on 05/22/17 Flomax 0.4mg PEG daily Proscar 5mg PEG daily continue Bethanecol 50mg PEG TID- started after persistent retention and found to be effective. monitor I's and O's - I/O: 780/350 Check bladder scan for residual urine three times weekly Sacral ulcer Healed Cont with offloading/cushioning/turning Continue frequent turning, protective ointment and skin checks. History of coronary artery disease s/p cardiac stents on 06/13/15 Cont ASA 81mg via PEG daily Cont Coreg 3.125mg PEG BID Cont Plavix 75 mg PEG daily Seizures Continue Keppra 500mg PEG BID for seizure prophylaxis Monitor for activity Lower extremity edema Improved SCDs in place Pressure ulcer boots on b/l Continue to monitor Prophylactic measure Pepcid 20 mg PEG BID Lovenox 40mg SC daily SCDs and offloading boots continue to turn and reposition q2hrs Continue to monitor medication administrations and clinical presentation weekly labs. vasoline ointment applied to feet prn to prevent hyperkeratosis Please hold feeding from 10pm-6am, placed into nursing communication Vitamin A & D for lips DW Dr. Palmira Campos DO, PGY1 <Amandeep Chavis H - Last Filed: 08/28/17 12:49> Objective - Vital Signs/Intake and Output Vital Signs (last 24 hours): Temp Pulse Resp BP Pulse Ox 98.4 F 90 20 117/75 100 08/28/17 07:32 08/28/17 07:32 08/28/17 07:32 08/28/17 07:32 08/28/17 07:32 Intake and Output: 08/28/17 08/28/17 06:59 18:59 Intake Total 1860 Output Total 950 Balance 910 - Medications Medications: Current Medications Acetylcysteine (Acetylcysteine 20%) 4 ml INH RQ8 [facility] Last Admin: 08/28/17 08:38 Dose: 4 ml Albuterol/Ipratropium (Duoneb 3 Mg/0.5 Mg (3 Ml) Ud) 3 ml INH RQ8 [facility] Aspirin (Aspirin Chewable) 81 mg PEG DAILY [facility] Last Admin: 08/28/17 10:25 Dose: 81 mg Bethanechol Chloride (Urecholine) 50 mg PEG TID [facility] Last Admin: 08/28/17 10:25 Dose: 50 mg Carvedilol (Coreg) 3.125 mg PEG BID [facility] Last Admin: 08/28/17 10:25 Dose: 3.125 mg Clopidogrel Bisulfate (Plavix) 75 mg PEG DAILY [facility] Last Admin: 08/28/17 10:25 Dose: 75 mg Emollient Ointment (Vaseline Oint) 5 gm TOP DAILY PRN PRN Reason: Dry skin Last Admin: 08/20/17 18:40 Dose: 5 gm Enoxaparin Sodium (Lovenox) 40 mg SC DAILY [facility] Last Admin: 08/28/17 10:25 Dose: 40 mg Famotidine (Pepcid) 20 mg PEG DAILY [facility] Last Admin: 10/06/17 10:25 Dose: 20 mg Finasteride (Proscar) 5 mg PEG DAILY [facility] Last Admin: 08/28/17 10:25 Dose: 5 mg Levetiracetam (Keppra) 500 mg PEG BID [facility] Last Admin: 08/28/17 10:25 Dose: 500 mg Saccharomyces Boulardii (Florastor) 250 mg PEG DAILY [facility] Last Admin: 08/28/17 10:25 Dose: 250 mg Scopolamine (Transderm-Scop) 1 patch TD Q3D [facility] Last Admin: 08/24/17 21:20 Dose: 1 patch Tamsulosin HCl (Flomax) 0.4 mg PEG DAILY [facility] Last Admin: 08/28/17 10:29 Dose: 0.4 mg Vitamin A (Vitamin A & D Oint Ud Foilpak) 1 ea TOP BID [facility] Last Admin: 08/28/17 10:25 Dose: 1 ea - Labs Labs: 08/24/17 07:07 08/24/17 07:07 PT 10.6 SECONDS (9.7-12.2) 11/24/15 14:10 INR 1.0 11/24/15 14:10 APTT 25 SECONDS (21-34) 11/24/15 14:10 Assessment and Plan (1) Prophylactic measure Status: Acute (2) Anoxic encephalopathy Status: Chronic (3) STEMI (ST elevation myocardial infarction) Status: Acute (4) Cardiac arrest Status: Acute (5) Seizures Status: Acute (6) Respiratory failure Status: Chronic Attending/Attestation - Attestation I have personally seen and examined this patient.: Yes I have fully participated in the care of the patient.: Yes I have reviewed all pertinent clinical information, including history, physical exam and plan: Yes Notes (Text): 08/28/17 12:49 Medical Attending: Patient was seen and examined by me, agree with the above note by the resident. The patient's situation is not changed from previous. thank you Amandeep Chavis
[2017-08-28] MEDS: Vitamins A & D Oint UD Foilpak TOP SCH ×2 (10:25→17:55)
[2017-08-28] MEDS: Saccharomyces Boulardi 250 mg Cap PEG SCH (10:25)
[2017-08-28] MEDS: levETIRAcetam 100 mg/ml (5ml) Oral Syringe PEG SCH ×2 (10:25→17:55)
[2017-08-28] MEDS: Enoxaparin 40 mg Syringe SC SCH (10:25)
[2017-08-28] MEDS: Albuterol-Ipratrop 3 mg / 0.5 (3 ml) UD INH SCH ×2 (16:27→16:28)
--- NOTE | 2017-08-29 00:22 | CP.PCM.PN ---
<Al Srivastava - Last Filed: 08/29/17 00:19> Subjective - Date & Time of Evaluation Date of Evaluation: 08/29/17 Time of Evaluation: 00:19 - Subjective Subjective: PGY1 Medicine note for Dr. Chavis Patient seen and examined at bedside. Patient is non-verbal as he had an anoxic brain injury in 2014. ROS is unobtainable. Objective - Vital Signs/Intake and Output Vital Signs (last 24 hours): Temp Pulse Resp BP Pulse Ox 98.6 F 82 20 113/64 100 08/28/17 23:36 08/28/17 23:36 08/28/17 23:36 08/28/17 23:36 08/28/17 23:36 Intake and Output: 08/28/17 08/29/17 18:59 06:59 Intake Total 780 780 Output Total 600 500 Balance 180 280 - Medications Medications: Current Medications Acetylcysteine (Acetylcysteine 20%) 4 ml INH RQ8 [facility] Last Admin: 08/28/17 16:28 Dose: 4 ml Albuterol/Ipratropium (Duoneb 3 Mg/0.5 Mg (3 Ml) Ud) 3 ml INH RQ8 [facility] Last Admin: 08/28/17 16:28 Dose: Not Given Aspirin (Aspirin Chewable) 81 mg PEG DAILY [facility] Last Admin: 08/28/17 10:25 Dose: 81 mg Bethanechol Chloride (Urecholine) 50 mg PEG TID [facility] Last Admin: 08/28/17 17:55 Dose: 50 mg Carvedilol (Coreg) 3.125 mg PEG BID [facility] Last Admin: 08/28/17 17:56 Dose: 3.125 mg Clopidogrel Bisulfate (Plavix) 75 mg PEG DAILY [facility] Last Admin: 08/28/17 10:25 Dose: 75 mg Emollient Ointment (Vaseline Oint) 5 gm TOP DAILY PRN PRN Reason: Dry skin Last Admin: 08/20/17 18:40 Dose: 5 gm Enoxaparin Sodium (Lovenox) 40 mg SC DAILY [facility] Last Admin: 08/28/17 10:25 Dose: 40 mg Famotidine (Pepcid) 20 mg PEG DAILY [facility] Last Admin: 08/28/17 10:25 Dose: 20 mg Finasteride (Proscar) 5 mg PEG DAILY [facility] Last Admin: 08/28/17 10:25 Dose: 5 mg Levetiracetam (Keppra) 500 mg PEG BID [facility] Last Admin: 08/28/17 17:55 Dose: 500 mg Saccharomyces Boulardii (Florastor) 250 mg PEG DAILY [facility] Last Admin: 08/28/17 10:25 Dose: 250 mg Scopolamine (Transderm-Scop) 1 patch TD Q3D [facility] Last Admin: 08/24/17 21:20 Dose: 1 patch Tamsulosin HCl (Flomax) 0.4 mg PEG DAILY [facility] Last Admin: 08/28/17 10:29 Dose: 0.4 mg Vitamin A (Vitamin A & D Oint Ud Foilpak) 1 ea TOP BID [facility] Last Admin: 08/28/17 17:55 Dose: 1 ea - Labs Labs: 08/24/17 07:07 08/24/17 07:07 PT 10.6 SECONDS (9.7-12.2) 11/24/15 14:10 INR 1.0 11/24/15 14:10 APTT 25 SECONDS (21-34) 11/24/15 14:10 - Constitutional Appears: Non-toxic, No Acute Distress - Head Exam Head Exam: ATRAUMATIC, NORMOCEPHALIC - ENT Exam ENT Exam: Mucous Membranes Moist - Neck Exam Additional comments: trach in place - Respiratory Exam Respiratory Exam: Rales (throughout). absent: Accessory Muscle Use, Respiratory Distress - Cardiovascular Exam Cardiovascular Exam: REGULAR RHYTHM, +S1, +S2. absent: JVD - GI/Abdominal Exam GI & Abdominal Exam: Distended, Soft, Normal Bowel Sounds. absent: Firm, Guarding, Rigid, Tenderness Additional comments: peg tube in place - Exam Additional comments: condom cath in place - Extremities Exam Extremities Exam: absent: Calf Tenderness, Pedal Edema Additional comments: SCDs and pressure ulcer boots in place - Neurological Exam Neurological Exam: Altered (anoxic brain injury in 2015) - Skin Skin Exam: Dry, Warm Assessment and Plan - Assessment and Plan (Free Text) Assessment: Anoxic encephalopathy s/p cardiac arrest in 05/2015 no acute changes Pt has non spontaneous movements. Continue tube feeds- goal of 60ml/hr, feedings held at night due to fluid overload Respiratory failure Trach in place, continue daily monitoring for secretions. No change in management at this time. Continue with aggressive suctioning multiple times a day per respiratory therapist. Monitor for signs of respiratory distress Thick secretions Duoneb 3ml INH Q6 and Mucomyst 4ml INH Q6H Scopolamine 1 patch TD Q3D JOO Repeat CXR on 05/28/17: linear increased consolidative changes in the right mid- lung zone and left lung base which may represent atelectasis and/or infiltrate. Questionable trace left pleural effusion. moderate venous congestion. cardiomegaly. degenerative changes in the spine and shoulders Leukocytosis secondary to UTI. Resolved 08/10: WBC 8.2 afebrile Meropenem (started 07/22) - per Dr. Armstrong continue for a total of 2 weeks - Discontinued 08/05/17 ID consult: Dr. Armstrong --> help appreciated Urinary retention 07/21: NS stopped because tube feeds restarted 07/20: Urine dark in color, monitor, continue NS at 50 ml per hour 07/07/17: Catheter flushed, patient output approx. 500mL within one hour post flush. 06/27/17: Continue bladder massages to aid in voiding. 06/25/17: Patient voids with movement. Continue bladder massages to aid in voiding. 06/23/17: Patient will need to have daily bladder massage to allow for complete voiding 06/17/17: Nursing communication placed in: straight catherization with bladder scan> 100ml 06/08: urinary retention yesterday, was given 40mg lasix iv and patient was able to urinate through condom baker Take note condom cath not always securely in place so Is and Os are approximate as patient does wet bed Ordered- new condom catheter on 05/22/17 Flomax 0.4mg PEG daily Proscar 5mg PEG daily continue Bethanecol 50mg PEG TID- started after persistent retention and found to be effective. monitor I's and O's - I/O: 780/350 Check bladder scan for residual urine three times weekly Hypokalemia K+ on 08/10: 4.2 Sacral ulcer Healed Cont with offloading/cushioning/turning Continue frequent turning, protective ointment and skin checks. History of coronary artery disease s/p cardiac stents on 06/13/15 Cont ASA 81mg via PEG daily Cont Coreg 3.125mg PEG BID Cont Plavix 75 mg PEG daily Seizures Continue Keppra 500mg PEG BID for seizure prophylaxis Monitor for activity Lower extremity edema Improved SCDs in place Pressure ulcer boots on b/l Continue to monitor Prophylactic measure Pepcid 20 mg PEG BID Lovenox 40mg SC daily SCDs and offloading boots continue to turn and reposition q2hrs Continue to monitor medication administrations and clinical presentation weekly labs. vasoline ointment applied to feet prn to prevent hyperkeratosis Please hold feeding from 10pm-6am, placed into nursing communication Vitamin A & D for lips No update at this time. Will discuss case with Dr. Palmira Melendez Carola PGY1 <Amandeep Chavis H - Last Filed: 08/29/17 11:14> Objective - Vital Signs/Intake and Output Vital Signs (last 24 hours): Temp Pulse Resp BP Pulse Ox 98.6 F 90 20 112/70 99 08/29/17 08:36 08/29/17 08:36 08/29/17 08:36 08/29/17 08:36 08/29/17 08:36 Intake and Output: 08/29/17 08/29/17 06:59 18:59 Intake Total 1560 Output Total 800 Balance 760 - Medications Medications: Current Medications Acetylcysteine (Acetylcysteine 20%) 4 ml INH RQ8 [facility] Last Admin: 08/29/17 08:02 Dose: 4 ml Albuterol/Ipratropium (Duoneb 3 Mg/0.5 Mg (3 Ml) Ud) 3 ml INH RQ8 [facility] Last Admin: 08/29/17 08:02 Dose: 3 ml Aspirin (Aspirin Chewable) 81 mg PEG DAILY [facility] Last Admin: 08/29/17 10:51 Dose: 81 mg Bethanechol Chloride (Urecholine) 50 mg PEG TID [facility] Last Admin: 08/29/17 10:51 Dose: 50 mg Carvedilol (Coreg) 3.125 mg PEG BID [facility] Last Admin: 08/29/17 10:51 Dose: 3.125 mg Clopidogrel Bisulfate (Plavix) 75 mg PEG DAILY [facility] Last Admin: 08/29/17 10:50 Dose: 75 mg Emollient Ointment (Vaseline Oint) 5 gm TOP DAILY PRN PRN Reason: Dry skin Last Admin: 08/20/17 18:40 Dose: 5 gm Enoxaparin Sodium (Lovenox) 40 mg SC DAILY [facility] Last Admin: 10/07/17 10:51 Dose: 40 mg Famotidine (Pepcid) 20 mg PEG DAILY [facility] Last Admin: 08/29/17 10:51 Dose: 20 mg Finasteride (Proscar) 5 mg PEG DAILY [facility] Last Admin: 08/29/17 10:51 Dose: 5 mg Levetiracetam (Keppra) 500 mg PEG BID [facility] Last Admin: 08/29/17 10:50 Dose: 500 mg Saccharomyces Boulardii (Florastor) 250 mg PEG DAILY [facility] Last Admin: 08/29/17 10:51 Dose: 250 mg Scopolamine (Transderm-Scop) 1 patch TD Q3D [facility] Last Admin: 08/24/17 21:20 Dose: 1 patch Tamsulosin HCl (Flomax) 0.4 mg PEG DAILY [facility] Last Admin: 08/29/17 10:50 Dose: 0.4 mg Vitamin A (Vitamin A & D Oint Ud Foilpak) 1 ea TOP BID [facility] Last Admin: 08/29/17 10:52 Dose: 1 ea - Labs Labs: 08/24/17 07:07 08/24/17 07:07 PT 10.6 SECONDS (9.7-12.2) 11/24/15 14:10 INR 1.0 11/24/15 14:10 APTT 25 SECONDS (21-34) 11/24/15 14:10 Assessment and Plan (1) Prophylactic measure Status: Acute (2) Anoxic encephalopathy Status: Chronic (3) STEMI (ST elevation myocardial infarction) Status: Acute (4) Cardiac arrest Status: Acute (5) Seizures Status: Acute (6) Respiratory failure Status: Chronic Attending/Attestation - Attestation I have personally seen and examined this patient.: Yes I have fully participated in the care of the patient.: Yes I have reviewed all pertinent clinical information, including history, physical exam and plan: Yes Notes (Text): 08/29/17 11:14 Medical Attending: Patient was seen and examined by me. Agree with the above note by the resident The patient's situation is not changed from before Amandeep Chavis
[2017-08-29] MEDS: Acetylcysteine 20% Inhal Soln (4ml) INH SCH ×4 (00:52→23:55)
[2017-08-29] MEDS: Albuterol-Ipratrop 3 mg / 0.5 (3 ml) UD INH SCH ×4 (00:52→23:56)
[2017-08-29] MEDS: levETIRAcetam 100 mg/ml (5ml) Oral Syringe PEG SCH ×2 (10:50→17:54)
[2017-08-29] MEDS: Saccharomyces Boulardi 250 mg Cap PEG SCH (10:51)
[2017-08-29] MEDS: Enoxaparin 40 mg Syringe SC SCH (10:51)
[2017-08-29] MEDS: Vitamins A & D Oint UD Foilpak TOP SCH ×2 (10:52→17:55)
[2017-08-30] MEDS: Albuterol-Ipratrop 3 mg / 0.5 (3 ml) UD INH SCH ×3 (08:19→23:38)
[2017-08-30] MEDS: Acetylcysteine 20% Inhal Soln (4ml) INH SCH ×3 (08:19→23:38)
--- NOTE | 2017-08-30 08:36 | CP.PCM.PN ---
<Al Srivastava - Last Filed: 08/30/17 08:32> Subjective - Date & Time of Evaluation Date of Evaluation: 08/30/17 Time of Evaluation: 08:32 - Subjective Subjective: PGY1 Medicine note for Dr. Chavis Patient seen and examined at bedside. Patient is non-verbal as he had an anoxic brain injury in 2014. ROS is unobtainable. Objective - Vital Signs/Intake and Output Vital Signs (last 24 hours): Temp Pulse Resp BP Pulse Ox 98.4 F 79 20 101/66 97 08/30/17 00:00 08/30/17 00:00 08/30/17 00:00 08/30/17 00:00 08/30/17 00:00 Intake and Output: 08/30/17 08/30/17 06:59 18:59 Intake Total 1560 Output Total 751 Balance 809 - Medications Medications: Current Medications Acetylcysteine (Acetylcysteine 20%) 4 ml INH RQ8 [facility] Last Admin: 08/30/17 08:19 Dose: 4 ml Albuterol/Ipratropium (Duoneb 3 Mg/0.5 Mg (3 Ml) Ud) 3 ml INH RQ8 [facility] Last Admin: 08/30/17 08:19 Dose: 3 ml Aspirin (Aspirin Chewable) 81 mg PEG DAILY [facility] Last Admin: 08/29/17 10:51 Dose: 81 mg Bethanechol Chloride (Urecholine) 50 mg PEG TID [facility] Last Admin: 08/29/17 17:54 Dose: 50 mg Carvedilol (Coreg) 3.125 mg PEG BID [facility] Last Admin: 08/29/17 17:55 Dose: 3.125 mg Clopidogrel Bisulfate (Plavix) 75 mg PEG DAILY [facility] Last Admin: 08/29/17 10:50 Dose: 75 mg Emollient Ointment (Vaseline Oint) 5 gm TOP DAILY PRN PRN Reason: Dry skin Last Admin: 08/20/17 18:40 Dose: 5 gm Enoxaparin Sodium (Lovenox) 40 mg SC DAILY [facility] Last Admin: 08/29/17 10:51 Dose: 40 mg Famotidine (Pepcid) 20 mg PEG DAILY [facility] Last Admin: 08/29/17 10:51 Dose: 20 mg Finasteride (Proscar) 5 mg PEG DAILY [facility] Last Admin: 08/29/17 10:51 Dose: 5 mg Levetiracetam (Keppra) 500 mg PEG BID [facility] Last Admin: 08/29/17 17:54 Dose: 500 mg Saccharomyces Boulardii (Florastor) 250 mg PEG DAILY [facility] Last Admin: 08/29/17 10:51 Dose: 250 mg Scopolamine (Transderm-Scop) 1 patch TD Q3D [facility] Last Admin: 08/24/17 21:20 Dose: 1 patch Tamsulosin HCl (Flomax) 0.4 mg PEG DAILY [facility] Last Admin: 08/29/17 10:50 Dose: 0.4 mg Vitamin A (Vitamin A & D Oint Ud Foilpak) 1 ea TOP BID [facility] Last Admin: 08/29/17 17:55 Dose: 1 ea - Labs Labs: 08/24/17 07:07 08/24/17 07:07 PT 10.6 SECONDS (9.7-12.2) 11/24/15 14:10 INR 1.0 11/24/15 14:10 APTT 25 SECONDS (21-34) 11/24/15 14:10 - Constitutional Appears: Non-toxic, No Acute Distress, Chronically Ill - Head Exam Head Exam: ATRAUMATIC, NORMOCEPHALIC - Eye Exam Eye Exam: EOMI, Normal appearance - ENT Exam ENT Exam: Mucous Membranes Moist - Neck Exam Additional comments: trach in place - Respiratory Exam Respiratory Exam: Rales, NORMAL BREATHING PATTERN - Cardiovascular Exam Cardiovascular Exam: REGULAR RHYTHM, +S1, +S2. absent: JVD - GI/Abdominal Exam GI & Abdominal Exam: Soft, Normal Bowel Sounds. absent: Distended, Firm, Guarding, Rigid, Tenderness Additional comments: peg in place - Exam Additional comments: condom cath in place - Extremities Exam Extremities Exam: absent: Calf Tenderness, Pedal Edema Additional comments: SCDs and pressure ulcer boots in place - Neurological Exam Neurological Exam: Altered (Altered (anoxic brain injury in 2014)) - Skin Skin Exam: Dry, Warm Assessment and Plan - Assessment and Plan (Free Text) Assessment: Anoxic encephalopathy s/p cardiac arrest in 05/2015 no acute changes Pt has non spontaneous movements. Continue tube feeds- goal of 60ml/hr, feedings held at night due to fluid overload Respiratory failure Trach in place, continue daily monitoring for secretions. No change in management at this time. Continue with aggressive suctioning multiple times a day per respiratory therapist. Monitor for signs of respiratory distress Thick secretions Duoneb 3ml INH Q6 and Mucomyst 4ml INH Q6H Scopolamine 1 patch TD Q3D JOO Repeat CXR on 05/28/17: linear increased consolidative changes in the right mid- lung zone and left lung base which may represent atelectasis and/or infiltrate. Questionable trace left pleural effusion. moderate venous congestion. cardiomegaly. degenerative changes in the spine and shoulders Leukocytosis secondary to UTI. Resolved 08/10: WBC 8.2 afebrile Meropenem (started 07/22) - per Dr. Armstrong continue for a total of 2 weeks - Discontinued 08/05/17 ID consult: Dr. Armstrong --> help appreciated Urinary retention 07/21: NS stopped because tube feeds restarted 07/20: Urine dark in color, monitor, continue NS at 50 ml per hour 07/07/17: Catheter flushed, patient output approx. 500mL within one hour post flush. 06/27/17: Continue bladder massages to aid in voiding. 06/25/17: Patient voids with movement. Continue bladder massages to aid in voiding. 06/23/17: Patient will need to have daily bladder massage to allow for complete voiding 06/17/17: Nursing communication placed in: straight catherization with bladder scan> 100ml 06/08: urinary retention yesterday, was given 40mg lasix iv and patient was able to urinate through condom baker Take note condom cath not always securely in place so Is and Os are approximate as patient does wet bed Ordered- new condom catheter on 05/22/17 Flomax 0.4mg PEG daily Proscar 5mg PEG daily continue Bethanecol 50mg PEG TID- started after persistent retention and found to be effective. monitor I's and O's - I/O: 780/350 Check bladder scan for residual urine three times weekly Hypokalemia K+ on 08/10: 4.2 Sacral ulcer Healed Cont with offloading/cushioning/turning Continue frequent turning, protective ointment and skin checks. History of coronary artery disease s/p cardiac stents on 06/13/15 Cont ASA 81mg via PEG daily Cont Coreg 3.125mg PEG BID Cont Plavix 75 mg PEG daily Seizures Continue Keppra 500mg PEG BID for seizure prophylaxis Monitor for activity Lower extremity edema Improved SCDs in place Pressure ulcer boots on b/l Continue to monitor Prophylactic measure Pepcid 20 mg PEG BID Lovenox 40mg SC daily SCDs and offloading boots continue to turn and reposition q2hrs Continue to monitor medication administrations and clinical presentation weekly labs. vasoline ointment applied to feet prn to prevent hyperkeratosis Please hold feeding from 10pm-6am, placed into nursing communication Vitamin A & D for lips No update at this time. Will discuss case with Dr. Palmira Melendez Carola PGY1 <Amandeep Chavis H - Last Filed: 08/30/17 13:32> Objective - Vital Signs/Intake and Output Vital Signs (last 24 hours): Temp Pulse Resp BP Pulse Ox 97.8 F 75 20 124/81 95 08/30/17 08:43 08/30/17 08:43 08/30/17 08:43 08/30/17 08:43 08/30/17 08:43 Intake and Output: 08/30/17 08/30/17 06:59 18:59 Intake Total 1560 Output Total 751 Balance 809 - Medications Medications: Current Medications Acetylcysteine (Acetylcysteine 20%) 4 ml INH RQ8 [facility] Last Admin: 08/30/17 08:19 Dose: 4 ml Albuterol/Ipratropium (Duoneb 3 Mg/0.5 Mg (3 Ml) Ud) 3 ml INH RQ8 [facility] Last Admin: 08/30/17 08:19 Dose: 3 ml Aspirin (Aspirin Chewable) 81 mg PEG DAILY [facility] Last Admin: 08/30/17 10:34 Dose: 81 mg Bethanechol Chloride (Urecholine) 50 mg PEG TID [facility] Last Admin: 08/30/17 10:33 Dose: 50 mg Carvedilol (Coreg) 3.125 mg PEG BID [facility] Last Admin: 08/30/17 10:33 Dose: 3.125 mg Clopidogrel Bisulfate (Plavix) 75 mg PEG DAILY [facility] Last Admin: 08/30/17 10:33 Dose: 75 mg Emollient Ointment (Vaseline Oint) 5 gm TOP DAILY PRN PRN Reason: Dry skin Last Admin: 08/20/17 18:40 Dose: 5 gm Enoxaparin Sodium (Lovenox) 40 mg SC DAILY [facility] Last Admin: 08/30/17 10:33 Dose: 40 mg Famotidine (Pepcid) 20 mg PEG DAILY [facility] Last Admin: 08/30/17 10:34 Dose: 20 mg Finasteride (Proscar) 5 mg PEG DAILY [facility] Last Admin: 08/30/17 10:33 Dose: 5 mg Levetiracetam (Keppra) 500 mg PEG BID [facility] Last Admin: 08/30/17 10:34 Dose: 500 mg Saccharomyces Boulardii (Florastor) 250 mg PEG DAILY [facility] Last Admin: 08/30/17 10:34 Dose: 250 mg Scopolamine (Transderm-Scop) 1 patch TD Q3D [facility] Last Admin: 08/24/17 21:20 Dose: 1 patch Tamsulosin HCl (Flomax) 0.4 mg PEG DAILY [facility] Last Admin: 08/30/17 10:33 Dose: 0.4 mg Vitamin A (Vitamin A & D Oint Ud Foilpak) 1 ea TOP BID [facility] Last Admin: 08/30/17 10:33 Dose: 1 ea - Labs Labs: 08/24/17 07:07 08/24/17 07:07 PT 10.6 SECONDS (9.7-12.2) 11/24/15 14:10 INR 1.0 11/24/15 14:10 APTT 25 SECONDS (21-34) 11/24/15 14:10 Assessment and Plan (1) Prophylactic measure Status: Acute (2) Anoxic encephalopathy Status: Chronic (3) STEMI (ST elevation myocardial infarction) Status: Acute (4) Cardiac arrest Status: Acute (5) Seizures Status: Acute (6) Respiratory failure Status: Chronic Attending/Attestation - Attestation I have personally seen and examined this patient.: Yes I have fully participated in the care of the patient.: Yes I have reviewed all pertinent clinical information, including history, physical exam and plan: Yes Notes (Text): 08/30/17 13:31 Medical Attending: Patient was seen and examined by me. Agree with the above note by the resident Currently situation is not changed from before thank you Amandeep Chavis
[2017-08-30] MEDS: Vitamins A & D Oint UD Foilpak TOP SCH ×2 (10:33→17:29)
[2017-08-30] MEDS: Enoxaparin 40 mg Syringe SC SCH (10:33)
[2017-08-30] MEDS: levETIRAcetam 100 mg/ml (5ml) Oral Syringe PEG SCH ×2 (10:34→17:27)
[2017-08-30] MEDS: Saccharomyces Boulardi 250 mg Cap PEG SCH (10:34)
[2017-08-31 06:43] LABS: ALBUMIN 3.3 g/dL (3.5-5.0)
[2017-08-31 06:46] LABS: ALB/GLOB RATIO 0.7 (1.0-2.1); ALT/SGPT 49 U/L (21-72); AST/SGOT 27 U/L (17-59); BLOOD UREA NITROGEN 13 mg/dL (9-20); CALCIUM 8.8 mg/dl (8.6-10.4); GFR NON-AFRICAN AMERICAN > 60
[2017-08-31 07:28] LABS: BASO # 0.1 K/uL (0.0-0.2); BASO % 0.9 % (0.0-2.0); EOS # 0.4 K/uL (0.0-0.7); EOS % 3.6 % (0.0-4.0); HEMOGLOBIN 10.6 g/dL (12.0-18.0); LYMPH # 2.3 K/uL (1.0-4.3); LYMPH % 22.5 % (20.0-40.0); MEAN CELL VOLUME 87.7 fL (80.0-94.0); MEAN CORPUSCULAR HEMOGLOBIN 29.1 pg (27.0-31.0); MEAN CORPUSCULAR HGB CONC 33.2 g/dL (33.0-37.0); MONO # 0.8 K/uL (0.0-0.8); NEUT # 6.8 K/uL (1.8-7.0); RBC 3.63 Mil/uL (4.40-5.90); RED CELL DISTRIBUTION WIDTH 15.3 % (11.5-14.5); WHITE BLOOD COUNT 10.4 K/uL (4.8-10.8)
[2017-08-31] MEDS: Albuterol-Ipratrop 3 mg / 0.5 (3 ml) UD INH SCH ×3 (08:25→23:55)
[2017-08-31] MEDS: Acetylcysteine 20% Inhal Soln (4ml) INH SCH ×3 (08:25→23:54)
[2017-08-31] MEDS: Vitamins A & D Oint UD Foilpak TOP SCH ×2 (09:55→17:31)
[2017-08-31] MEDS: Saccharomyces Boulardi 250 mg Cap PEG SCH (09:55)
[2017-08-31] MEDS: Enoxaparin 40 mg Syringe SC SCH (09:56)
[2017-08-31] MEDS: levETIRAcetam 100 mg/ml (5ml) Oral Syringe PEG SCH ×2 (09:56→17:30)
[2017-08-31] MEDS: Petrolatum Oint Foilpak (5 gm) TOP PRN (09:56)
--- NOTE | 2017-08-31 21:11 | CP.PCM.PN ---
<Al Srivastava - Last Filed: 08/31/17 21:09> Subjective - Date & Time of Evaluation Date of Evaluation: 08/31/17 Time of Evaluation: 08:00 - Subjective Subjective: PGY1 Medicine note for Dr. Hallman Patient seen and examined at bedside. Patient is non-verbal as he had an anoxic brain injury in 2014. ROS is unobtainable. Objective - Vital Signs/Intake and Output Vital Signs (last 24 hours): Temp Pulse Resp BP Pulse Ox 97.3 F L 76 20 130/82 95 08/31/17 16:00 08/31/17 16:00 08/31/17 16:00 08/31/17 16:00 08/31/17 16:00 Intake and Output: 08/31/17 09/01/17 18:59 06:59 Intake Total 480 Output Total 550 Balance -70 - Medications Medications: Current Medications Acetylcysteine (Acetylcysteine 20%) 4 ml INH RQ8 [facility] Last Admin: 08/31/17 19:55 Dose: 4 ml Albuterol/Ipratropium (Duoneb 3 Mg/0.5 Mg (3 Ml) Ud) 3 ml INH RQ8 [facility] Last Admin: 08/31/17 19:55 Dose: 3 ml Aspirin (Aspirin Chewable) 81 mg PEG DAILY [facility] Last Admin: 08/31/17 09:55 Dose: 81 mg Bethanechol Chloride (Urecholine) 50 mg PEG TID [facility] Last Admin: 08/31/17 17:31 Dose: 50 mg Carvedilol (Coreg) 3.125 mg PEG BID [facility] Last Admin: 08/31/17 17:31 Dose: 3.125 mg Clopidogrel Bisulfate (Plavix) 75 mg PEG DAILY [facility] Last Admin: 08/31/17 09:55 Dose: 75 mg Emollient Ointment (Vaseline Oint) 5 gm TOP DAILY PRN PRN Reason: Dry skin Last Admin: 08/31/17 09:56 Dose: 5 gm Enoxaparin Sodium (Lovenox) 40 mg SC DAILY [facility] Last Admin: 08/31/17 09:56 Dose: 40 mg Famotidine (Pepcid) 20 mg PEG DAILY [facility] Last Admin: 08/31/17 09:56 Dose: 20 mg Finasteride (Proscar) 5 mg PEG DAILY [facility] Last Admin: 08/31/17 09:56 Dose: 5 mg Levetiracetam (Keppra) 500 mg PEG BID [facility] Last Admin: 08/31/17 17:30 Dose: 500 mg Saccharomyces Boulardii (Florastor) 250 mg PEG DAILY [facility] Last Admin: 08/31/17 09:55 Dose: 250 mg Scopolamine (Transderm-Scop) 1 patch TD Q3D [facility] Last Admin: 08/31/17 09:54 Dose: 1 patch Tamsulosin HCl (Flomax) 0.4 mg PEG DAILY [facility] Last Admin: 08/31/17 09:55 Dose: 0.4 mg Vitamin A (Vitamin A & D Oint Ud Foilpak) 1 ea TOP BID [facility] Last Admin: 08/31/17 17:31 Dose: 1 ea - Labs Labs: 08/31/17 07:11 08/31/17 06:25 PT 10.6 SECONDS (9.7-12.2) 11/24/15 14:10 INR 1.0 11/24/15 14:10 APTT 25 SECONDS (21-34) 11/24/15 14:10 - Constitutional Appears: Non-toxic, No Acute Distress - Head Exam Head Exam: ATRAUMATIC, NORMOCEPHALIC - ENT Exam ENT Exam: Mucous Membranes Moist - Neck Exam Additional comments: trach in place - Respiratory Exam Respiratory Exam: Rales, NORMAL BREATHING PATTERN. absent: Accessory Muscle Use , Respiratory Distress - Cardiovascular Exam Cardiovascular Exam: REGULAR RHYTHM, +S1, +S2 - GI/Abdominal Exam GI & Abdominal Exam: Distended, Soft, Normal Bowel Sounds. absent: Firm, Guarding, Rigid, Tenderness Additional comments: peg in place - Exam Additional comments: condom cath in place - Extremities Exam Extremities Exam: absent: Calf Tenderness, Pedal Edema Additional comments: SCDs and pressure ulcer boots in place - Neurological Exam Neurological Exam: Altered (anoxic brain injury in 2015) - Skin Skin Exam: Dry, Warm Assessment and Plan - Assessment and Plan (Free Text) Plan: Anoxic encephalopathy s/p cardiac arrest in 05/2015 no acute changes Pt has non spontaneous movements. Continue tube feeds- goal of 60ml/hr, feedings held at night due to fluid overload Respiratory failure Trach in place, continue daily monitoring for secretions. No change in management at this time. Continue with aggressive suctioning multiple times a day per respiratory therapist. Monitor for signs of respiratory distress Thick secretions Duoneb 3ml INH Q6 and Mucomyst 4ml INH Q6H Scopolamine 1 patch TD Q3D [facility]OO Repeat CXR on 05/28/17: linear increased consolidative changes in the right mid- lung zone and left lung base which may represent atelectasis and/or infiltrate. Questionable trace left pleural effusion. moderate venous congestion. cardiomegaly. degenerative changes in the spine and shoulders Leukocytosis secondary to UTI. Resolved 08/10: WBC 8.2 afebrile Meropenem (started 07/22) - per Dr. Armstrong continue for a total of 2 weeks - Discontinued 08/05/17 ID consult: Dr. Armstrong --> help appreciated Urinary retention 07/21: NS stopped because tube feeds restarted 07/20: Urine dark in color, monitor, continue NS at 50 ml per hour 07/07/17: Catheter flushed, patient output approx. 500mL within one hour post flush. 06/27/17: Continue bladder massages to aid in voiding. 06/25/17: Patient voids with movement. Continue bladder massages to aid in voiding. 06/23/17: Patient will need to have daily bladder massage to allow for complete voiding 06/17/17: Nursing communication placed in: straight catherization with bladder scan> 100ml 06/08: urinary retention yesterday, was given 40mg lasix iv and patient was able to urinate through condom baker Take note condom cath not always securely in place so Is and Os are approximate as patient does wet bed Ordered- new condom catheter on 05/22/17 Flomax 0.4mg PEG daily Proscar 5mg PEG daily continue Bethanecol 50mg PEG TID- started after persistent retention and found to be effective. monitor I's and O's - I/O: 780/350 Check bladder scan for residual urine three times weekly Hypokalemia K+ on 08/10: 4.2 Sacral ulcer Healed Cont with offloading/cushioning/turning Continue frequent turning, protective ointment and skin checks. History of coronary artery disease s/p cardiac stents on 06/13/15 Cont ASA 81mg via PEG daily Cont Coreg 3.125mg PEG BID Cont Plavix 75 mg PEG daily Seizures Continue Keppra 500mg PEG BID for seizure prophylaxis Monitor for activity Lower extremity edema Improved SCDs in place Pressure ulcer boots on b/l Continue to monitor Prophylactic measure Pepcid 20 mg PEG BID Lovenox 40mg SC daily SCDs and offloading boots continue to turn and reposition q2hrs Continue to monitor medication administrations and clinical presentation weekly labs. vasoline ointment applied to feet prn to prevent hyperkeratosis Please hold feeding from 10pm-6am, placed into nursing communication Vitamin A & D for lips No update at this time. Will discuss case with Dr. Viji Melendez Carola PGY1 <Donavan Hallman - Last Filed: 09/02/17 17:04> Objective - Vital Signs/Intake and Output Vital Signs (last 24 hours): Temp Pulse Resp BP Pulse Ox 98.9 F 92 H 20 103/68 95 09/02/17 15:00 09/02/17 15:00 09/02/17 15:00 09/02/17 15:00 09/02/17 15:00 Intake and Output: 09/02/17 09/02/17 06:59 18:59 Intake Total 1610 780 Output Total 1250 600 Balance 360 180 - Medications Medications: Current Medications Acetylcysteine (Acetylcysteine 20%) 4 ml INH RQ8 [facility] Last Admin: 09/02/17 08:13 Dose: 4 ml Albuterol/Ipratropium (Duoneb 3 Mg/0.5 Mg (3 Ml) Ud) 3 ml INH RQ8 [facility] Aspirin (Aspirin Chewable) 81 mg PEG DAILY [facility] Last Admin: 09/02/17 09:41 Dose: 81 mg Bethanechol Chloride (Urecholine) 50 mg PEG TID [facility] Last Admin: 09/02/17 13:08 Dose: 50 mg Carvedilol (Coreg) 3.125 mg PEG BID [facility] Last Admin: 09/02/17 09:41 Dose: 3.125 mg Clopidogrel Bisulfate (Plavix) 75 mg PEG DAILY [facility] Last Admin: 09/02/17 09:41 Dose: 75 mg Emollient Ointment (Vaseline Oint) 5 gm TOP DAILY PRN PRN Reason: Dry skin Last Admin: 09/02/17 13:16 Dose: 5 gm Enoxaparin Sodium (Lovenox) 40 mg SC DAILY [facility] Last Admin: 09/02/17 09:40 Dose: 40 mg Famotidine (Pepcid) 20 mg PEG DAILY [facility] Last Admin: 09/02/17 10:59 Dose: 20 mg Finasteride (Proscar) 5 mg PEG DAILY [facility] Last Admin: 09/02/17 09:42 Dose: 5 mg Levetiracetam (Keppra) 500 mg PEG BID [facility] 234 [facility] Last Admin: 09/02/17 09:42 Dose: 500 mg Saccharomyces Boulardii (Florastor) 250 mg PEG DAILY [facility] 234 [facility] Last Admin: 09/02/17 09:41 Dose: 250 mg Scopolamine (Transderm-Scop) 1 patch TD Q3D [facility] 234 [facility] Last Admin: 08/31/17 09:54 Dose: 1 patch Tamsulosin HCl (Flomax) 0.4 mg PEG DAILY [facility] Last Admin: 09/02/17 09:41 Dose: 0.4 mg Vitamin A (Vitamin A & D Oint Ud Foilpak) 1 ea TOP BID [facility] Last Admin: 09/02/17 10:17 Dose: 1 ea - Labs Labs: 08/31/17 07:11 08/31/17 06:25 PT 10.6 SECONDS (9.7-12.2) 11/24/15 14:10 INR 1.0 11/24/15 14:10 APTT 25 SECONDS (21-34) 11/24/15 14:10 Attending/Attestation - Attestation I have personally seen and examined this patient.: Yes I have fully participated in the care of the patient.: Yes I have reviewed all pertinent clinical information, including history, physical exam and plan: Yes Notes (Text): Continue supportive care No acute issues
[2017-09-01] MEDS: Albuterol-Ipratrop 3 mg / 0.5 (3 ml) UD INH SCH ×3 (00:18→15:52)
[2017-09-01] MEDS: Acetylcysteine 20% Inhal Soln (4ml) INH SCH ×3 (00:18→15:52)
--- NOTE | 2017-09-01 07:49 | CP.PCM.PN ---
<Ben Martell - Last Filed: 09/01/17 07:47> Subjective - Date & Time of Evaluation Date of Evaluation: 09/01/17 Time of Evaluation: 07:47 - Subjective Subjective: Patient was seen and examined at bedside. Patient is clinically unchanged. Patient has had an anoxic brain injury thus ROS is unobtainable. No events overnight per nurse note. Objective - Vital Signs/Intake and Output Vital Signs (last 24 hours): Temp Pulse Resp BP Pulse Ox 98.1 F 93 H 20 113/72 97 08/31/17 23:37 08/31/17 23:37 08/31/17 23:37 08/31/17 23:37 08/31/17 23:37 Intake and Output: 09/01/17 09/01/17 06:59 18:59 Intake Total 780 Output Total 300 Balance 480 - Medications Medications: Current Medications Acetylcysteine (Acetylcysteine 20%) 4 ml INH RQ8 [facility] Last Admin: 09/01/17 07:34 Dose: 4 ml Albuterol/Ipratropium (Duoneb 3 Mg/0.5 Mg (3 Ml) Ud) 3 ml INH RQ8 [facility] Last Admin: 09/01/17 07:34 Dose: 3 ml Aspirin (Aspirin Chewable) 81 mg PEG DAILY [facility] Last Admin: 08/31/17 09:55 Dose: 81 mg Bethanechol Chloride (Urecholine) 50 mg PEG TID [facility] Last Admin: 08/31/17 17:31 Dose: 50 mg Carvedilol (Coreg) 3.125 mg PEG BID [facility] Last Admin: 08/31/17 17:31 Dose: 3.125 mg Clopidogrel Bisulfate (Plavix) 75 mg PEG DAILY [facility] Last Admin: 08/31/17 09:55 Dose: 75 mg Emollient Ointment (Vaseline Oint) 5 gm TOP DAILY PRN PRN Reason: Dry skin Last Admin: 08/31/17 09:56 Dose: 5 gm Enoxaparin Sodium (Lovenox) 40 mg SC DAILY [facility] Last Admin: 08/31/17 09:56 Dose: 40 mg Famotidine (Pepcid) 20 mg PEG DAILY [facility] Last Admin: 08/31/17 09:56 Dose: 20 mg Finasteride (Proscar) 5 mg PEG DAILY [facility] Last Admin: 08/31/17 09:56 Dose: 5 mg Levetiracetam (Keppra) 500 mg PEG BID [facility] Last Admin: 08/31/17 17:30 Dose: 500 mg Saccharomyces Boulardii (Florastor) 250 mg PEG DAILY [facility] Last Admin: 08/31/17 09:55 Dose: 250 mg Scopolamine (Transderm-Scop) 1 patch TD Q3D [facility] Last Admin: 08/31/17 09:54 Dose: 1 patch Tamsulosin HCl (Flomax) 0.4 mg PEG DAILY [facility] Last Admin: 08/31/17 09:55 Dose: 0.4 mg Vitamin A (Vitamin A & D Oint Ud Foilpak) 1 ea TOP BID [facility] Last Admin: 08/31/17 17:31 Dose: 1 ea - Labs Labs: 08/31/17 07:11 08/31/17 06:25 PT 10.6 SECONDS (9.7-12.2) 11/24/15 14:10 INR 1.0 11/24/15 14:10 APTT 25 SECONDS (21-34) 11/24/15 14:10 - Constitutional Appears: No Acute Distress - Head Exam Head Exam: ATRAUMATIC, NORMAL INSPECTION - ENT Exam ENT Exam: Mucous Membranes Moist - Respiratory Exam Respiratory Exam: Rales, NORMAL BREATHING PATTERN Additional comments: w/ trach - Cardiovascular Exam Cardiovascular Exam: REGULAR RHYTHM, RRR, +S1, +S2 - GI/Abdominal Exam GI & Abdominal Exam: Soft Additional comments: PEG in place. - Rectal Exam Rectal Exam: Deferred - Extremities Exam Extremities Exam: absent: Pedal Edema Additional comments: SCDs and pressure ulcer boots in place. - Neurological Exam Neurological Exam: Altered Additional comments: Altered (due to anoxic brain injury in 2014) - Skin Skin Exam: Dry, Intact, Normal Color, Warm Assessment and Plan - Assessment and Plan (Free Text) Assessment: Anoxic encephalopathy s/p cardiac arrest in 05/2015 no acute changes Pt has non spontaneous movements. Continue tube feeds- goal of 60ml/hr, feedings held at night due to fluid overload Respiratory failure Trach in place, continue daily monitoring for secretions. No change in management at this time. Continue with aggressive suctioning multiple times a day per respiratory therapist. Monitor for signs of respiratory distress Thick secretions Duoneb 3ml INH Q6 and Mucomyst 4ml INH Q6H Scopolamine 1 patch TD Q3D [facility] Repeat CXR on 05/28/17: linear increased consolidative changes in the right mid- lung zone and left lung base which may represent atelectasis and/or infiltrate. Questionable trace left pleural effusion. moderate venous congestion. cardiomegaly. degenerative changes in the spine and shoulders Leukocytosis secondary to UTI. Resolved 08/10: WBC 8.2 afebrile Meropenem (started 07/22) - per Dr. Armstrong continue for a total of 2 weeks - Discontinued 08/05/17 ID consult: Dr. Armstrong --> help appreciated Urinary retention 07/21: NS stopped because tube feeds restarted 07/20: Urine dark in color, monitor, continue NS at 50 ml per hour 07/07/17: Catheter flushed, patient output approx. 500mL within one hour post flush. 06/27/17: Continue bladder massages to aid in voiding. 06/25/17: Patient voids with movement. Continue bladder massages to aid in voiding. 06/23/17: Patient will need to have daily bladder massage to allow for complete voiding 06/17/17: Nursing communication placed in: straight catherization with bladder scan> 100ml 06/08: urinary retention yesterday, was given 40mg lasix iv and patient was able to urinate through condom baker Take note condom cath not always securely in place so Is and Os are approximate as patient does wet bed Ordered- new condom catheter on 05/22/17 Flomax 0.4mg PEG daily Proscar 5mg PEG daily continue Bethanecol 50mg PEG TID- started after persistent retention and found to be effective. monitor I's and O's - I/O: 780/350 Check bladder scan for residual urine three times weekly Hypokalemia K+ on 08/10: 4.2 Sacral ulcer Healed Cont with offloading/cushioning/turning Continue frequent turning, protective ointment and skin checks. History of coronary artery disease s/p cardiac stents on 06/13/15 Cont ASA 81mg via PEG daily Cont Coreg 3.125mg PEG BID Cont Plavix 75 mg PEG daily Seizures Continue Keppra 500mg PEG BID for seizure prophylaxis Monitor for activity Lower extremity edema Improved SCDs in place Pressure ulcer boots on b/l Continue to monitor Prophylactic measure Pepcid 20 mg PEG BID Lovenox 40mg SC daily SCDs and offloading boots continue to turn and reposition q2hrs Continue to monitor medication administrations and clinical presentation weekly labs. vasoline ointment applied to feet prn to prevent hyperkeratosis Please hold feeding from 10pm-6am, placed into nursing communication Vitamin A & D for lips No update at this time. Will discuss case with Dr. Hallman <Donavan Hallman - Last Filed: 09/02/17 17:05> Objective - Vital Signs/Intake and Output Vital Signs (last 24 hours): Temp Pulse Resp BP Pulse Ox 98.9 F 92 H 20 103/68 95 09/02/17 15:00 09/02/17 15:00 09/02/17 15:00 09/02/17 15:00 09/02/17 15:00 Intake and Output: 09/02/17 09/02/17 06:59 18:59 Intake Total 1610 780 Output Total 1250 600 Balance 360 180 - Medications Medications: Current Medications Acetylcysteine (Acetylcysteine 20%) 4 ml INH RQ8 [facility] Last Admin: 09/02/17 08:13 Dose: 4 ml Albuterol/Ipratropium (Duoneb 3 Mg/0.5 Mg (3 Ml) Ud) 3 ml INH RQ8 [facility] Aspirin (Aspirin Chewable) 81 mg PEG DAILY [facility] Last Admin: 09/02/17 09:41 Dose: 81 mg Bethanechol Chloride (Urecholine) 50 mg PEG TID [facility] Last Admin: 09/02/17 13:08 Dose: 50 mg Carvedilol (Coreg) 3.125 mg PEG BID [facility] Last Admin: 09/02/17 09:41 Dose: 3.125 mg Clopidogrel Bisulfate (Plavix) 75 mg PEG DAILY [facility] Last Admin: 09/02/17 09:41 Dose: 75 mg Emollient Ointment (Vaseline Oint) 5 gm TOP DAILY PRN PRN Reason: Dry skin Last Admin: 09/02/17 13:16 Dose: 5 gm Enoxaparin Sodium (Lovenox) 40 mg SC DAILY [facility] Last Admin: 09/02/17 09:40 Dose: 40 mg Famotidine (Pepcid) 20 mg PEG DAILY [facility] Last Admin: 09/02/17 10:59 Dose: 20 mg Finasteride (Proscar) 5 mg PEG DAILY [facility] Last Admin: 09/02/17 09:42 Dose: 5 mg Levetiracetam (Keppra) 500 mg PEG BID [facility] Last Admin: 09/02/17 09:42 Dose: 500 mg Saccharomyces Boulardii (Florastor) 250 mg PEG DAILY [facility] Last Admin: 09/02/17 09:41 Dose: 250 mg Scopolamine (Transderm-Scop) 1 patch TD Q3D [facility] Last Admin: 08/31/17 09:54 Dose: 1 patch Tamsulosin HCl (Flomax) 0.4 mg PEG DAILY [facility] Last Admin: 09/02/17 09:41 Dose: 0.4 mg Vitamin A (Vitamin A & D Oint Ud Foilpak) 1 ea TOP BID [facility] Last Admin: 09/02/17 10:17 Dose: 1 ea - Labs Labs: 08/31/17 07:11 08/31/17 06:25 PT 10.6 SECONDS (9.7-12.2) 11/24/15 14:10 INR 1.0 11/24/15 14:10 APTT 25 SECONDS (21-34) 11/24/15 14:10 Attending/Attestation - Attestation I have personally seen and examined this patient.: Yes I have fully participated in the care of the patient.: Yes I have reviewed all pertinent clinical information, including history, physical exam and plan: Yes Notes (Text): Continue supportive care No acute issues
[2017-09-01] MEDS: Saccharomyces Boulardi 250 mg Cap PEG SCH (10:23)
[2017-09-01] MEDS: Enoxaparin 40 mg Syringe SC SCH (10:23)
[2017-09-01] MEDS: Vitamins A & D Oint UD Foilpak TOP SCH ×2 (10:24→18:03)
[2017-09-01] MEDS: levETIRAcetam 100 mg/ml (5ml) Oral Syringe PEG SCH ×2 (10:24→18:02)
[2017-09-02] MEDS: Acetylcysteine 20% Inhal Soln (4ml) INH SCH ×3 (00:54→20:00)
[2017-09-02] MEDS: Albuterol-Ipratrop 3 mg / 0.5 (3 ml) UD INH SCH ×2 (00:54→08:13)
--- NOTE | 2017-09-02 07:38 | CP.PCM.PN ---
<Al Srivastava - Last Filed: 09/02/17 18:18> Subjective - Date & Time of Evaluation Date of Evaluation: 09/02/17 Time of Evaluation: 07:38 - Subjective Subjective: PGY1 Medicine note for Dr. Hallman Patient was seen and examined at bedside. Patient is clinically unchanged. Patient has had an anoxic brain injury. ROS is unobtainable. Objective - Vital Signs/Intake and Output Vital Signs (last 24 hours): Temp Pulse Resp BP Pulse Ox 98.1 F 76 21 124/86 100 09/02/17 07:35 09/02/17 07:35 09/02/17 07:35 09/02/17 07:35 09/02/17 07:35 Intake and Output: 09/02/17 09/02/17 06:59 18:59 Intake Total 1610 Output Total 1250 Balance 360 - Medications Medications: Current Medications Acetylcysteine (Acetylcysteine 20%) 4 ml INH RQ8 [facility] Last Admin: 09/02/17 00:54 Dose: Not Given Albuterol/Ipratropium (Duoneb 3 Mg/0.5 Mg (3 Ml) Ud) 3 ml INH RQ8 [facility] Last Admin: 09/02/17 00:54 Dose: 3 ml Aspirin (Aspirin Chewable) 81 mg PEG DAILY [facility] Last Admin: 09/01/17 10:24 Dose: 81 mg Bethanechol Chloride (Urecholine) 50 mg PEG TID [facility] Last Admin: 09/01/17 18:03 Dose: 50 mg Carvedilol (Coreg) 3.125 mg PEG BID [facility] Last Admin: 09/01/17 18:03 Dose: 3.125 mg Clopidogrel Bisulfate (Plavix) 75 mg PEG DAILY [facility] Last Admin: 09/01/17 10:23 Dose: 75 mg Emollient Ointment (Vaseline Oint) 5 gm TOP DAILY PRN PRN Reason: Dry skin Last Admin: 08/31/17 09:56 Dose: 5 gm Enoxaparin Sodium (Lovenox) 40 mg SC DAILY [facility] Last Admin: 09/01/17 10:23 Dose: 40 mg Famotidine (Pepcid) 20 mg PEG DAILY [facility] Last Admin: 09/01/17 10:23 Dose: 20 mg Finasteride (Proscar) 5 mg PEG DAILY [facility] Last Admin: 09/01/17 10:23 Dose: 5 mg Levetiracetam (Keppra) 500 mg PEG BID [facility] Last Admin: 09/01/17 18:02 Dose: 500 mg Saccharomyces Boulardii (Florastor) 250 mg PEG DAILY [facility] Last Admin: 09/01/17 10:23 Dose: 250 mg Scopolamine (Transderm-Scop) 1 patch TD Q3D [facility] Last Admin: 08/31/17 09:54 Dose: 1 patch Tamsulosin HCl (Flomax) 0.4 mg PEG DAILY [facility] Last Admin: 09/01/17 10:24 Dose: 0.4 mg Vitamin A (Vitamin A & D Oint Ud Foilpak) 1 ea TOP BID [facility] Last Admin: 09/01/17 18:03 Dose: 1 ea - Labs Labs: 08/31/17 07:11 08/31/17 06:25 PT 10.6 SECONDS (9.7-12.2) 11/24/15 14:10 INR 1.0 11/24/15 14:10 APTT 25 SECONDS (21-34) 11/24/15 14:10 - Constitutional Appears: Non-toxic, No Acute Distress - Head Exam Head Exam: ATRAUMATIC, NORMOCEPHALIC - ENT Exam ENT Exam: Mucous Membranes Moist - Neck Exam Additional comments: trach in place - Respiratory Exam Respiratory Exam: Rales (throughout), NORMAL BREATHING PATTERN. absent: Accessory Muscle Use, Respiratory Distress - Cardiovascular Exam Cardiovascular Exam: REGULAR RHYTHM, +S1, +S2 - GI/Abdominal Exam GI & Abdominal Exam: Soft, Normal Bowel Sounds. absent: Distended, Firm, Guarding, Rigid, Tenderness - Exam Additional comments: condom cath in place - Extremities Exam Extremities Exam: absent: Calf Tenderness, Pedal Edema Additional comments: scds and pressure ulcer boots in place - Neurological Exam Neurological Exam: Altered (anoxic brain injury) - Skin Skin Exam: Dry, Warm Assessment and Plan - Assessment and Plan (Free Text) Assessment: Anoxic encephalopathy s/p cardiac arrest in 05/2015 no acute changes Pt has non spontaneous movements. Continue tube feeds- goal of 60ml/hr, feedings held at night due to fluid overload Respiratory failure Trach in place, continue daily monitoring for secretions. No change in management at this time. Continue with aggressive suctioning multiple times a day per respiratory therapist. Monitor for signs of respiratory distress Thick secretions Duoneb 3ml INH Q6 and Mucomyst 4ml INH Q6H Scopolamine 1 patch TD Q3D [facility] Repeat CXR on 05/28/17: linear increased consolidative changes in the right mid- lung zone and left lung base which may represent atelectasis and/or infiltrate. Questionable trace left pleural effusion. moderate venous congestion. cardiomegaly. degenerative changes in the spine and shoulders Leukocytosis secondary to UTI. Resolved 08/10: WBC 8.2 afebrile Meropenem (started 07/22) - per Dr. Armstrong continue for a total of 2 weeks - Discontinued 08/05/17 ID consult: Dr. Armstrong --> help appreciated Urinary retention 07/21: NS stopped because tube feeds restarted 07/20: Urine dark in color, monitor, continue NS at 50 ml per hour 07/07/17: Catheter flushed, patient output approx. 500mL within one hour post flush. 06/27/17: Continue bladder massages to aid in voiding. 06/25/17: Patient voids with movement. Continue bladder massages to aid in voiding. 06/23/17: Patient will need to have daily bladder massage to allow for complete voiding 06/17/17: Nursing communication placed in: straight catherization with bladder scan> 100ml 06/08: urinary retention yesterday, was given 40mg lasix iv and patient was able to urinate through condom baker Take note condom cath not always securely in place so Is and Os are approximate as patient does wet bed Ordered- new condom catheter on 05/22/17 Flomax 0.4mg PEG daily Proscar 5mg PEG daily continue Bethanecol 50mg PEG TID- started after persistent retention and found to be effective. monitor I's and O's - I/O: 780/350 Check bladder scan for residual urine three times weekly Hypokalemia K+ on 08/10: 4.2 Sacral ulcer Healed Cont with offloading/cushioning/turning Continue frequent turning, protective ointment and skin checks. History of coronary artery disease s/p cardiac stents on 06/13/15 Cont ASA 81mg via PEG daily Cont Coreg 3.125mg PEG BID Cont Plavix 75 mg PEG daily Seizures Continue Keppra 500mg PEG BID for seizure prophylaxis Monitor for activity Lower extremity edema Improved SCDs in place Pressure ulcer boots on b/l Continue to monitor Prophylactic measure Pepcid 20 mg PEG BID Lovenox 40mg SC daily SCDs and offloading boots continue to turn and reposition q2hrs Continue to monitor medication administrations and clinical presentation weekly labs. vasoline ointment applied to feet prn to prevent hyperkeratosis Please hold feeding from 10pm-6am, placed into nursing communication Vitamin A & D for lips No update at this time. Case discussed with Dr. Viji Melendez Carola PGY1 <Donavan Hallman - Last Filed: 09/07/17 17:31> Objective - Vital Signs/Intake and Output Vital Signs (last 24 hours): Temp Pulse Resp BP Pulse Ox 98.6 F 84 20 115/74 99 09/07/17 15:08 09/07/17 15:08 09/07/17 15:08 09/07/17 15:08 09/07/17 15:08 Intake and Output: 09/07/17 09/07/17 06:59 18:59 Intake Total 1560 780 Output Total 500 900 Balance 1060 -120 - Medications Medications: Current Medications Acetylcysteine (Acetylcysteine 20%) 4 ml INH RQ8 [facility] Last Admin: 09/07/17 15:48 Dose: 4 ml Albuterol/Ipratropium (Duoneb 3 Mg/0.5 Mg (3 Ml) Ud) 3 ml INH RQ8 [facility] Last Admin: 09/07/17 15:48 Dose: 3 ml Aspirin (Aspirin Chewable) 81 mg PEG DAILY [facility] Last Admin: 09/07/17 10:22 Dose: 81 mg Bethanechol Chloride (Urecholine) 50 mg PEG TID [facility] Last Admin: 09/07/17 14:11 Dose: 50 mg Carvedilol (Coreg) 3.125 mg PEG BID [facility] Last Admin: 09/07/17 10:22 Dose: 3.125 mg Clopidogrel Bisulfate (Plavix) 75 mg PEG DAILY [facility] Last Admin: 09/07/17 10:22 Dose: 75 mg Emollient Ointment (Vaseline Oint) 5 gm TOP DAILY PRN PRN Reason: Dry skin Last Admin: 09/02/17 13:16 Dose: 5 gm Enoxaparin Sodium (Lovenox) 40 mg SC DAILY [facility] Last Admin: 09/07/17 10:22 Dose: 40 mg Famotidine (Pepcid) 20 mg PEG DAILY [facility] Last Admin: 09/07/17 10:22 Dose: 20 mg Finasteride (Proscar) 5 mg PEG DAILY [facility] Last Admin: 09/07/17 10:22 Dose: 5 mg Levetiracetam (Keppra) 500 mg PEG BID [facility] Last Admin: 09/07/17 10:21 Dose: 500 mg Saccharomyces Boulardii (Florastor) 250 mg PEG DAILY [facility] Last Admin: 09/07/17 10:21 Dose: 250 mg Scopolamine (Transderm-Scop) 1 patch TD Q3D [facility] Last Admin: 09/05/17 20:18 Dose: 1 patch Tamsulosin HCl (Flomax) 0.4 mg PEG DAILY [facility] Last Admin: 09/07/17 10:22 Dose: 0.4 mg Vitamin A (Vitamin A & D Oint Ud Foilpak) 1 ea TOP BID [facility] Last Admin: 09/07/17 10:44 Dose: 1 ea - Labs Labs: 09/07/17 07:31 09/07/17 07:31 PT 10.6 SECONDS (9.7-12.2) 11/24/15 14:10 INR 1.0 11/24/15 14:10 APTT 25 SECONDS (21-34) 11/24/15 14:10 Attending/Attestation - Attestation I have personally seen and examined this patient.: Yes I have fully participated in the care of the patient.: Yes I have reviewed all pertinent clinical information, including history, physical exam and plan: Yes Notes (Text): Anoxic encephalopathy No changes continue supportive care.
[2017-09-02] MEDS: Enoxaparin 40 mg Syringe SC SCH (09:40)
[2017-09-02] MEDS: Saccharomyces Boulardi 250 mg Cap PEG SCH (09:41)
[2017-09-02] MEDS: Petrolatum Oint Foilpak (5 gm) TOP PRN ×2 (09:42→13:16)
[2017-09-02] MEDS: levETIRAcetam 100 mg/ml (5ml) Oral Syringe PEG SCH ×2 (09:42→19:00)
[2017-09-02] MEDS: Vitamins A & D Oint UD Foilpak TOP SCH ×2 (10:17→17:48)
[2017-09-03] MEDS: Albuterol-Ipratrop 3 mg / 0.5 (3 ml) UD INH SCH ×4 (00:07→23:44)
[2017-09-03] MEDS: Acetylcysteine 20% Inhal Soln (4ml) INH SCH ×4 (00:07→23:44)
[2017-09-03] MEDS: Vitamins A & D Oint UD Foilpak TOP SCH ×2 (10:20→18:25)
[2017-09-03] MEDS: Saccharomyces Boulardi 250 mg Cap PEG SCH (10:23)
[2017-09-03] MEDS: levETIRAcetam 100 mg/ml (5ml) Oral Syringe PEG SCH ×2 (11:20→18:25)
[2017-09-03] MEDS: Enoxaparin 40 mg Syringe SC SCH (11:22)
--- NOTE | 2017-09-03 14:06 | CP.PCM.PN ---
<Al Srivastava - Last Filed: 09/03/17 16:42> Subjective - Date & Time of Evaluation Date of Evaluation: 09/03/17 Time of Evaluation: 09:00 - Subjective Subjective: PGY1 Medicine Note for Dr. Moore Patient seen and examined this morning at bedside. Patient had anoxic brain injury in 05/2015. ROS unattainable. Objective - Vital Signs/Intake and Output Vital Signs (last 24 hours): Temp Pulse Resp BP Pulse Ox 98.0 F 81 20 125/84 100 09/03/17 08:15 09/03/17 08:15 09/03/17 08:15 09/03/17 08:15 09/03/17 08:15 Intake and Output: 09/03/17 09/03/17 06:59 18:59 Intake Total 1560 Output Total 850 Balance 710 - Medications Medications: Current Medications Acetylcysteine (Acetylcysteine 20%) 4 ml INH RQ8 [facility] Last Admin: 09/03/17 08:09 Dose: 4 ml Albuterol/Ipratropium (Duoneb 3 Mg/0.5 Mg (3 Ml) Ud) 3 ml INH RQ8 [facility] Last Admin: 09/03/17 08:09 Dose: 3 ml Aspirin (Aspirin Chewable) 81 mg PEG DAILY [facility] Last Admin: 09/03/17 10:23 Dose: 81 mg Bethanechol Chloride (Urecholine) 50 mg PEG TID [facility] Last Admin: 09/03/17 11:24 Dose: 50 mg Carvedilol (Coreg) 3.125 mg PEG BID [facility] Last Admin: 09/03/17 10:25 Dose: 3.125 mg Clopidogrel Bisulfate (Plavix) 75 mg PEG DAILY [facility] Last Admin: 09/03/17 10:43 Dose: 75 mg Emollient Ointment (Vaseline Oint) 5 gm TOP DAILY PRN PRN Reason: Dry skin Last Admin: 09/02/17 13:16 Dose: 5 gm Enoxaparin Sodium (Lovenox) 40 mg SC DAILY [facility] Last Admin: 09/03/17 11:22 Dose: 40 mg Famotidine (Pepcid) 20 mg PEG DAILY [facility] Last Admin: 09/03/17 10:43 Dose: 20 mg Finasteride (Proscar) 5 mg PEG DAILY [facility] Last Admin: 09/03/17 11:20 Dose: 5 mg Levetiracetam (Keppra) 500 mg PEG BID [facility] Last Admin: 09/03/17 11:20 Dose: 500 mg Saccharomyces Boulardii (Florastor) 250 mg PEG DAILY [facility] Last Admin: 09/03/17 10:23 Dose: 250 mg Scopolamine (Transderm-Scop) 1 patch TD Q3D [facility] Last Admin: 09/02/17 21:27 Dose: 1 patch Tamsulosin HCl (Flomax) 0.4 mg PEG DAILY [facility] Last Admin: 09/03/17 10:30 Dose: 0.4 mg Vitamin A (Vitamin A & D Oint Ud Foilpak) 1 ea TOP BID [facility] Last Admin: 09/03/17 10:20 Dose: 1 ea - Labs Labs: 08/31/17 07:11 08/31/17 06:25 PT 10.6 SECONDS (9.7-12.2) 11/24/15 14:10 INR 1.0 11/24/15 14:10 APTT 25 SECONDS (21-34) 11/24/15 14:10 - Constitutional Appears: Non-toxic, No Acute Distress, Chronically Ill - Head Exam Head Exam: ATRAUMATIC, NORMOCEPHALIC - ENT Exam ENT Exam: Mucous Membranes Moist - Neck Exam Additional comments: trach in place. - Respiratory Exam Respiratory Exam: Rales (throughout b/l), NORMAL BREATHING PATTERN. absent: Accessory Muscle Use, Respiratory Distress - Cardiovascular Exam Cardiovascular Exam: REGULAR RHYTHM, +S1 - GI/Abdominal Exam GI & Abdominal Exam: Soft, Normal Bowel Sounds. absent: Distended, Firm, Guarding, Rigid, Tenderness, Hyperactive Bowel Sounds - Extremities Exam Extremities Exam: Normal Capillary Refill. absent: Calf Tenderness, Pedal Edema Additional comments: scds and pressure ulcer boots in place. - Neurological Exam Neurological Exam: Altered (anoxic brain injury in 2014) - Skin Skin Exam: Dry, Warm Assessment and Plan - Assessment and Plan (Free Text) Assessment: Anoxic encephalopathy s/p cardiac arrest in 05/2015 no acute changes Pt has non spontaneous movements. Continue tube feeds- goal of 60ml/hr, feedings held at night due to fluid overload Respiratory failure Trach in place, continue daily monitoring for secretions. No change in management at this time. Continue with aggressive suctioning multiple times a day per respiratory therapist. Monitor for signs of respiratory distress Thick secretions Duoneb 3ml INH Q6 and Mucomyst 4ml INH Q6H Scopolamine 1 patch TD Q3D [facility]OO Repeat CXR on 05/28/17: linear increased consolidative changes in the right mid- lung zone and left lung base which may represent atelectasis and/or infiltrate. Questionable trace left pleural effusion. moderate venous congestion. cardiomegaly. degenerative changes in the spine and shoulders Leukocytosis secondary to UTI. Resolved 08/10: WBC 8.2 afebrile Meropenem (started 07/22) - per Dr. Armstrong continue for a total of 2 weeks - Discontinued 08/05/17 ID consult: Dr. Armstrong --> help appreciated Urinary retention 07/21: NS stopped because tube feeds restarted 07/20: Urine dark in color, monitor, continue NS at 50 ml per hour 07/07/17: Catheter flushed, patient output approx. 500mL within one hour post flush. 06/27/17: Continue bladder massages to aid in voiding. 06/25/17: Patient voids with movement. Continue bladder massages to aid in voiding. 06/23/17: Patient will need to have daily bladder massage to allow for complete voiding 06/17/17: Nursing communication placed in: straight catherization with bladder scan> 100ml 06/08: urinary retention yesterday, was given 40mg lasix iv and patient was able to urinate through condom baker Take note condom cath not always securely in place so Is and Os are approximate as patient does wet bed Ordered- new condom catheter on 05/22/17 Flomax 0.4mg PEG daily Proscar 5mg PEG daily continue Bethanecol 50mg PEG TID- started after persistent retention and found to be effective. monitor I's and O's - I/O: 780/350 Check bladder scan for residual urine three times weekly Hypokalemia K+ on 08/10: 4.2 Sacral ulcer Healed Cont with offloading/cushioning/turning Continue frequent turning, protective ointment and skin checks. History of coronary artery disease s/p cardiac stents on 06/13/15 Cont ASA 81mg via PEG daily Cont Coreg 3.125mg PEG BID Cont Plavix 75 mg PEG daily Seizures Continue Keppra 500mg PEG BID for seizure prophylaxis Monitor for activity Lower extremity edema Improved SCDs in place Pressure ulcer boots on b/l Continue to monitor Prophylactic measure Pepcid 20 mg PEG BID Lovenox 40mg SC daily SCDs and offloading boots continue to turn and reposition q2hrs Continue to monitor medication administrations and clinical presentation weekly labs. vasoline ointment applied to feet prn to prevent hyperkeratosis Please hold feeding from 10pm-6am, placed into nursing communication Vitamin A & D for lips No update at this time. Case discussed with Dr. Teresa Melendez Carola PGY1 <Jeison Moore - Last Filed: 09/04/17 14:52> Objective - Vital Signs/Intake and Output Vital Signs (last 24 hours): Temp Pulse Resp BP Pulse Ox 98.2 F 73 20 123/71 100 09/04/17 08:12 09/04/17 08:12 09/04/17 08:12 09/04/17 08:12 09/04/17 08:12 Intake and Output: 09/04/17 09/04/17 06:59 18:59 Intake Total 1560 480 Output Total 950 300 Balance 610 180 - Medications Medications: Current Medications Acetylcysteine (Acetylcysteine 20%) 4 ml INH RQ8 [facility] Last Admin: 09/04/17 07:33 Dose: 4 ml Albuterol/Ipratropium (Duoneb 3 Mg/0.5 Mg (3 Ml) Ud) 3 ml INH RQ8 [facility] Last Admin: 09/04/17 07:33 Dose: 3 ml Aspirin (Aspirin Chewable) 81 mg PEG DAILY [facility] Last Admin: 09/04/17 10:22 Dose: 81 mg Bethanechol Chloride (Urecholine) 50 mg PEG TID [facility] Last Admin: 09/04/17 13:23 Dose: 50 mg Carvedilol (Coreg) 3.125 mg PEG BID [facility] Last Admin: 09/04/17 10:20 Dose: 3.125 mg Clopidogrel Bisulfate (Plavix) 75 mg PEG DAILY [facility] Last Admin: 09/04/17 10:50 Dose: 75 mg Emollient Ointment (Vaseline Oint) 5 gm TOP DAILY PRN PRN Reason: Dry skin Last Admin: 09/02/17 13:16 Dose: 5 gm Enoxaparin Sodium (Lovenox) 40 mg SC DAILY [facility] Last Admin: 09/04/17 10:41 Dose: 40 mg Famotidine (Pepcid) 20 mg PEG DAILY [facility] Last Admin: 09/04/17 10:19 Dose: 20 mg Finasteride (Proscar) 5 mg PEG DAILY [facility] Last Admin: 09/04/17 10:20 Dose: 5 mg Levetiracetam (Keppra) 500 mg PEG BID [facility] Last Admin: 09/04/17 10:21 Dose: 500 mg Saccharomyces Boulardii (Florastor) 250 mg PEG DAILY [facility] Last Admin: 09/04/17 10:18 Dose: 250 mg Scopolamine (Transderm-Scop) 1 patch TD Q3D [facility] Last Admin: 09/02/17 21:27 Dose: 1 patch Tamsulosin HCl (Flomax) 0.4 mg PEG DAILY [facility] Last Admin: 09/04/17 10:19 Dose: 0.4 mg Vitamin A (Vitamin A & D Oint Ud Foilpak) 1 ea TOP BID [facility] Last Admin: 09/04/17 10:22 Dose: 1 ea - Labs Labs: 08/31/17 07:11 08/31/17 06:25 PT 10.6 SECONDS (9.7-12.2) 11/24/15 14:10 INR 1.0 11/24/15 14:10 APTT 25 SECONDS (21-34) 11/24/15 14:10 Attending/Attestation - Attestation I have personally seen and examined this patient.: Yes I have fully participated in the care of the patient.: Yes I have reviewed all pertinent clinical information, including history, physical exam and plan: Yes Notes (Text): 09/04/17 14:51 Seen and examined,no complain.Discussed with resident.Notes reviewed
[2017-09-04] MEDS: Albuterol-Ipratrop 3 mg / 0.5 (3 ml) UD INH SCH ×2 (07:33→16:01)
[2017-09-04] MEDS: Acetylcysteine 20% Inhal Soln (4ml) INH SCH ×2 (07:33→16:01)
--- NOTE | 2017-09-04 07:45 | CP.PCM.PN ---
<Al Srivastava - Last Filed: 09/04/17 16:03> Subjective - Date & Time of Evaluation Date of Evaluation: 09/04/17 Time of Evaluation: 07:43 - Subjective Subjective: PGY1 Medicine Note for Dr. Moore Patient seen and examined at bedside this morning. Patient had anoxic brain injury in 2014, ROS unattainable. Objective - Vital Signs/Intake and Output Vital Signs (last 24 hours): Temp Pulse Resp BP Pulse Ox 97.6 F 84 20 105/65 98 09/03/17 23:56 09/03/17 23:56 09/03/17 23:56 09/03/17 23:56 09/03/17 23:56 Intake and Output: 09/04/17 09/04/17 06:59 18:59 Intake Total 1560 Output Total 950 Balance 610 - Medications Medications: Current Medications Acetylcysteine (Acetylcysteine 20%) 4 ml INH RQ8 [facility] Last Admin: 09/04/17 07:33 Dose: 4 ml Albuterol/Ipratropium (Duoneb 3 Mg/0.5 Mg (3 Ml) Ud) 3 ml INH RQ8 [facility] Last Admin: 09/04/17 07:33 Dose: 3 ml Aspirin (Aspirin Chewable) 81 mg PEG DAILY [facility] Last Admin: 09/03/17 10:23 Dose: 81 mg Bethanechol Chloride (Urecholine) 50 mg PEG TID [facility] Last Admin: 09/03/17 18:24 Dose: 50 mg Carvedilol (Coreg) 3.125 mg PEG BID [facility] Last Admin: 09/03/17 18:25 Dose: 3.125 mg Clopidogrel Bisulfate (Plavix) 75 mg PEG DAILY [facility] Last Admin: 09/03/17 10:43 Dose: 75 mg Emollient Ointment (Vaseline Oint) 5 gm TOP DAILY PRN PRN Reason: Dry skin Last Admin: 09/02/17 13:16 Dose: 5 gm Enoxaparin Sodium (Lovenox) 40 mg SC DAILY [facility] Last Admin: 09/03/17 11:22 Dose: 40 mg Famotidine (Pepcid) 20 mg PEG DAILY [facility] Last Admin: 09/03/17 10:43 Dose: 20 mg Finasteride (Proscar) 5 mg PEG DAILY [facility] Last Admin: 09/03/17 11:20 Dose: 5 mg Levetiracetam (Keppra) 500 mg PEG BID [facility] Last Admin: 09/03/17 18:25 Dose: 500 mg Saccharomyces Boulardii (Florastor) 250 mg PEG DAILY [facility] Last Admin: 09/03/17 10:23 Dose: 250 mg Scopolamine (Transderm-Scop) 1 patch TD Q3D [facility] Last Admin: 09/02/17 21:27 Dose: 1 patch Tamsulosin HCl (Flomax) 0.4 mg PEG DAILY [facility] Last Admin: 09/03/17 10:30 Dose: 0.4 mg Vitamin A (Vitamin A & D Oint Ud Foilpak) 1 ea TOP BID [facility] Last Admin: 09/03/17 18:25 Dose: 1 ea - Labs Labs: 08/31/17 07:11 08/31/17 06:25 PT 10.6 SECONDS (9.7-12.2) 11/24/15 14:10 INR 1.0 11/24/15 14:10 APTT 25 SECONDS (21-34) 11/24/15 14:10 - Constitutional Appears: Non-toxic, No Acute Distress - Head Exam Head Exam: ATRAUMATIC, NORMOCEPHALIC - ENT Exam ENT Exam: Mucous Membranes Moist - Neck Exam Additional comments: trach in place - Respiratory Exam Respiratory Exam: Rales, Wheezes, NORMAL BREATHING PATTERN. absent: Accessory Muscle Use, Respiratory Distress - Cardiovascular Exam Cardiovascular Exam: REGULAR RHYTHM, +S1 - GI/Abdominal Exam GI & Abdominal Exam: Soft, Normal Bowel Sounds. absent: Distended, Firm, Guarding, Rigid, Tenderness Additional comments: PEG Tube in place - Extremities Exam Extremities Exam: absent: Calf Tenderness, Pedal Edema Additional comments: SCDs and pressure ulcer boots in place. - Neurological Exam Neurological Exam: Altered (anoxic brain injury) - Skin Skin Exam: Dry, Warm Assessment and Plan - Assessment and Plan (Free Text) Assessment: Anoxic encephalopathy s/p cardiac arrest in 05/2015 no acute changes Pt has non spontaneous movements. Continue tube feeds- goal of 60ml/hr, feedings held at night due to fluid overload Respiratory failure Trach in place, continue daily monitoring for secretions. No change in management at this time. Continue with aggressive suctioning multiple times a day per respiratory therapist. Monitor for signs of respiratory distress Thick secretions Duoneb 3ml INH Q6 and Mucomyst 4ml INH Q6H Scopolamine 1 patch TD Q3D [facility] Repeat CXR on 05/28/17: linear increased consolidative changes in the right mid- lung zone and left lung base which may represent atelectasis and/or infiltrate. Questionable trace left pleural effusion. moderate venous congestion. cardiomegaly. degenerative changes in the spine and shoulders Leukocytosis secondary to UTI. Resolved 08/10: WBC 8.2 afebrile Meropenem (started 07/22) - per Dr. Armstrong continue for a total of 2 weeks - Discontinued 08/05/17 ID consult: Dr. Armstrong --> help appreciated Urinary retention 07/21: NS stopped because tube feeds restarted 07/20: Urine dark in color, monitor, continue NS at 50 ml per hour 07/07/17: Catheter flushed, patient output approx. 500mL within one hour post flush. 06/27/17: Continue bladder massages to aid in voiding. 06/25/17: Patient voids with movement. Continue bladder massages to aid in voiding. 06/23/17: Patient will need to have daily bladder massage to allow for complete voiding 06/17/17: Nursing communication placed in: straight catherization with bladder scan> 100ml 06/08: urinary retention yesterday, was given 40mg lasix iv and patient was able to urinate through condom baker Take note condom cath not always securely in place so Is and Os are approximate as patient does wet bed Ordered- new condom catheter on 05/22/17 Flomax 0.4mg PEG daily Proscar 5mg PEG daily continue Bethanecol 50mg PEG TID- started after persistent retention and found to be effective. monitor I's and O's - I/O: 780/350 Check bladder scan for residual urine three times weekly Hypokalemia K+ on 08/10: 4.2 Sacral ulcer Healed Cont with offloading/cushioning/turning Continue frequent turning, protective ointment and skin checks. History of coronary artery disease s/p cardiac stents on 06/13/15 Cont ASA 81mg via PEG daily Cont Coreg 3.125mg PEG BID Cont Plavix 75 mg PEG daily Seizures Continue Keppra 500mg PEG BID for seizure prophylaxis Monitor for activity Lower extremity edema Improved SCDs in place Pressure ulcer boots on b/l Continue to monitor Prophylactic measure Pepcid 20 mg PEG BID Lovenox 40mg SC daily SCDs and offloading boots continue to turn and reposition q2hrs Continue to monitor medication administrations and clinical presentation weekly labs. vasoline ointment applied to feet prn to prevent hyperkeratosis Please hold feeding from 10pm-6am, placed into nursing communication Vitamin A & D for lips No update at this time. Case discussed with Dr. Teresa Melendez Carola PGY1 <Jeison Moore - Last Filed: 09/05/17 14:45> Objective - Vital Signs/Intake and Output Vital Signs (last 24 hours): Temp Pulse Resp BP Pulse Ox 98.0 F 77 20 127/60 99 09/05/17 09:05 09/05/17 09:05 09/05/17 09:05 09/05/17 09:05 09/05/17 09:05 Intake and Output: 09/05/17 09/05/17 06:59 18:59 Intake Total 1560 Output Total 1100 Balance 460 - Medications Medications: Current Medications Acetylcysteine (Acetylcysteine 20%) 4 ml INH RQ8 [facility] Last Admin: 09/05/17 07:40 Dose: 4 ml Albuterol/Ipratropium (Duoneb 3 Mg/0.5 Mg (3 Ml) Ud) 3 ml INH RQ8 [facility] Last Admin: 09/05/17 07:40 Dose: 3 ml Aspirin (Aspirin Chewable) 81 mg PEG DAILY [facility] Last Admin: 09/05/17 09:10 Dose: 81 mg Bethanechol Chloride (Urecholine) 50 mg PEG TID [facility] Last Admin: 09/05/17 13:17 Dose: 50 mg Carvedilol (Coreg) 3.125 mg PEG BID [facility] Last Admin: 09/05/17 09:09 Dose: 3.125 mg Clopidogrel Bisulfate (Plavix) 75 mg PEG DAILY [facility] Last Admin: 09/05/17 09:09 Dose: 75 mg Emollient Ointment (Vaseline Oint) 5 gm TOP DAILY PRN PRN Reason: Dry skin Last Admin: 09/02/17 13:16 Dose: 5 gm Enoxaparin Sodium (Lovenox) 40 mg SC DAILY [facility] Last Admin: 09/05/17 09:09 Dose: 40 mg Famotidine (Pepcid) 20 mg PEG DAILY [facility] Last Admin: 09/05/17 09:10 Dose: 20 mg Finasteride (Proscar) 5 mg PEG DAILY [facility] Last Admin: 09/05/17 09:11 Dose: 5 mg Levetiracetam (Keppra) 500 mg PEG BID [facility] Last Admin: 09/05/17 09:09 Dose: 500 mg Saccharomyces Boulardii (Florastor) 250 mg PEG DAILY [facility] Last Admin: 09/05/17 09:10 Dose: 250 mg Scopolamine (Transderm-Scop) 1 patch TD Q3D [facility] Last Admin: 09/02/17 21:27 Dose: 1 patch Tamsulosin HCl (Flomax) 0.4 mg PEG DAILY [facility] Last Admin: 09/05/17 09:10 Dose: 0.4 mg Vitamin A (Vitamin A & D Oint Ud Foilpak) 1 ea TOP BID [facility] Last Admin: 09/05/17 09:11 Dose: 1 ea - Labs Labs: 08/31/17 07:11 08/31/17 06:25 PT 10.6 SECONDS (9.7-12.2) 11/24/15 14:10 INR 1.0 11/24/15 14:10 APTT 25 SECONDS (21-34) 11/24/15 14:10 Attending/Attestation - Attestation I have personally seen and examined this patient.: Yes I have fully participated in the care of the patient.: Yes I have reviewed all pertinent clinical information, including history, physical exam and plan: Yes Notes (Text): 09/05/17 14:45 Chart reviewed.Seen and examined,no changes noted. continue current management
[2017-09-04] MEDS: Saccharomyces Boulardi 250 mg Cap PEG SCH (10:18)
[2017-09-04] MEDS: levETIRAcetam 100 mg/ml (5ml) Oral Syringe PEG SCH ×2 (10:21→18:16)
[2017-09-04] MEDS: Vitamins A & D Oint UD Foilpak TOP SCH ×2 (10:22→18:17)
[2017-09-04] MEDS: Enoxaparin 40 mg Syringe SC SCH (10:41)
--- NOTE | 2017-09-04 23:24 | CP.PCM.PN ---
<Tanya Campos - Last Filed: 09/05/17 00:42> Subjective - Date & Time of Evaluation Date of Evaluation: 09/05/17 Time of Evaluation: 00:30 - Subjective Subjective: Medicine Note for Dr. Caro Patient seen and examined at bedside this morning. Patient had anoxic brain injury in 2014, ROS unattainable. Objective - Vital Signs/Intake and Output Vital Signs (last 24 hours): Temp Pulse Resp BP Pulse Ox 98.7 F 79 20 101/58 L 95 09/04/17 16:00 09/04/17 16:00 09/04/17 16:00 09/04/17 16:00 09/04/17 16:00 Intake and Output: 09/04/17 09/05/17 18:59 06:59 Intake Total 480 780 Output Total 300 700 Balance 180 80 - Medications Medications: Current Medications Acetylcysteine (Acetylcysteine 20%) 4 ml INH RQ8 [facility] Last Admin: 09/04/17 16:01 Dose: 4 ml Albuterol/Ipratropium (Duoneb 3 Mg/0.5 Mg (3 Ml) Ud) 3 ml INH RQ8 [facility] Last Admin: 09/04/17 16:01 Dose: 3 ml Aspirin (Aspirin Chewable) 81 mg PEG DAILY [facility] Last Admin: 09/04/17 10:22 Dose: 81 mg Bethanechol Chloride (Urecholine) 50 mg PEG TID [facility] Last Admin: 09/04/17 18:16 Dose: 50 mg Carvedilol (Coreg) 3.125 mg PEG BID [facility] Last Admin: 09/04/17 18:16 Dose: 3.125 mg Clopidogrel Bisulfate (Plavix) 75 mg PEG DAILY [facility] Last Admin: 09/04/17 10:50 Dose: 75 mg Emollient Ointment (Vaseline Oint) 5 gm TOP DAILY PRN PRN Reason: Dry skin Last Admin: 09/02/17 13:16 Dose: 5 gm Enoxaparin Sodium (Lovenox) 40 mg SC DAILY [facility] Last Admin: 09/04/17 10:41 Dose: 40 mg Famotidine (Pepcid) 20 mg PEG DAILY [facility] Last Admin: 09/04/17 10:19 Dose: 20 mg Finasteride (Proscar) 5 mg PEG DAILY [facility] Last Admin: 09/04/17 10:20 Dose: 5 mg Levetiracetam (Keppra) 500 mg PEG BID [facility] Last Admin: 09/04/17 18:16 Dose: 500 mg Saccharomyces Boulardii (Florastor) 250 mg PEG DAILY [facility] Last Admin: 09/04/17 10:18 Dose: 250 mg Scopolamine (Transderm-Scop) 1 patch TD Q3D [facility] Last Admin: 09/02/17 21:27 Dose: 1 patch Tamsulosin HCl (Flomax) 0.4 mg PEG DAILY [facility] Last Admin: 09/04/17 10:19 Dose: 0.4 mg Vitamin A (Vitamin A & D Oint Ud Foilpak) 1 ea TOP BID [facility] Last Admin: 09/04/17 18:17 Dose: 1 ea - Labs Labs: 08/31/17 07:11 08/31/17 06:25 PT 10.6 SECONDS (9.7-12.2) 11/24/15 14:10 INR 1.0 11/24/15 14:10 APTT 25 SECONDS (21-34) 11/24/15 14:10 - Additional Findings Additional findings: - Constitutional Appears: Non-toxic, No Acute Distress - Head Exam Head Exam: ATRAUMATIC, NORMOCEPHALIC - ENT Exam ENT Exam: Mucous Membranes Moist - Neck Exam Additional comments: trach in place - Respiratory Exam Respiratory Exam: Rales, Wheezes, NORMAL BREATHING PATTERN. absent: Accessory Muscle Use, Respiratory Distress - Cardiovascular Exam Cardiovascular Exam: REGULAR RHYTHM, +S1 - GI/Abdominal Exam GI & Abdominal Exam: Soft, Normal Bowel Sounds. absent: Distended, Firm, Guarding, Rigid, Tenderness Additional comments: PEG Tube in place - Extremities Exam Extremities Exam: absent: Calf Tenderness, Pedal Edema Additional comments: SCDs and pressure ulcer boots in place. - Neurological Exam Neurological Exam: Altered (anoxic brain injury) - Skin Skin Exam: Dry, Warm Assessment and Plan - Assessment and Plan (Free Text) Plan: Anoxic encephalopathy s/p cardiac arrest in 05/2015 no acute changes Pt has non spontaneous movements. Continue tube feeds- goal of 60ml/hr, feedings held at night due to fluid overload Respiratory failure Trach in place, continue daily monitoring for secretions. No change in management at this time. Continue with aggressive suctioning multiple times a day per respiratory therapist. Monitor for signs of respiratory distress Thick secretions Duoneb 3ml INH Q6 and Mucomyst 4ml INH Q6H Scopolamine 1 patch TD Q3D JOO Repeat CXR on 05/28/17: linear increased consolidative changes in the right mid- lung zone and left lung base which may represent atelectasis and/or infiltrate. Questionable trace left pleural effusion. moderate venous congestion. cardiomegaly. degenerative changes in the spine and shoulders Leukocytosis secondary to UTI. Resolved 08/10: WBC 8.2 afebrile Meropenem (started 07/22) - per Dr. Armstrong continue for a total of 2 weeks - Discontinued 08/05/17 ID consult: Dr. Armstrong --> help appreciated Urinary retention 07/21: NS stopped because tube feeds restarted 07/20: Urine dark in color, monitor, continue NS at 50 ml per hour 07/07/17: Catheter flushed, patient output approx. 500mL within one hour post flush. 06/27/17: Continue bladder massages to aid in voiding. 06/25/17: Patient voids with movement. Continue bladder massages to aid in voiding. 06/23/17: Patient will need to have daily bladder massage to allow for complete voiding 06/17/17: Nursing communication placed in: straight catherization with bladder scan> 100ml 06/08: urinary retention yesterday, was given 40mg lasix iv and patient was able to urinate through condom baker Take note condom cath not always securely in place so Is and Os are approximate as patient does wet bed Ordered- new condom catheter on 05/22/17 Flomax 0.4mg PEG daily Proscar 5mg PEG daily continue Bethanecol 50mg PEG TID- started after persistent retention and found to be effective. monitor I's and O's - I/O: 780/350 Check bladder scan for residual urine three times weekly Hypokalemia K+ on 08/10: 4.2 Sacral ulcer Healed Cont with offloading/cushioning/turning Continue frequent turning, protective ointment and skin checks. History of coronary artery disease s/p cardiac stents on 06/13/15 Cont ASA 81mg via PEG daily Cont Coreg 3.125mg PEG BID Cont Plavix 75 mg PEG daily Seizures Continue Keppra 500mg PEG BID for seizure prophylaxis Monitor for activity Lower extremity edema Improved SCDs in place Pressure ulcer boots on b/l Continue to monitor Prophylactic measure Pepcid 20 mg PEG BID Lovenox 40mg SC daily SCDs and offloading boots continue to turn and reposition q2hrs Continue to monitor medication administrations and clinical presentation weekly labs. vasoline ointment applied to feet prn to prevent hyperkeratosis Please hold feeding from 10pm-6am, placed into nursing communication Vitamin A & D for lips DW Dr. Caro, Beth DO, PGY1 <Jeison Moore - Last Filed: 09/05/17 14:46> Objective - Vital Signs/Intake and Output Vital Signs (last 24 hours): Temp Pulse Resp BP Pulse Ox 98.0 F 77 20 127/60 99 09/05/17 09:05 09/05/17 09:05 09/05/17 09:05 09/05/17 09:05 09/05/17 09:05 Intake and Output: 09/05/17 09/05/17 06:59 18:59 Intake Total 1560 Output Total 1100 Balance 460 - Medications Medications: Current Medications Acetylcysteine (Acetylcysteine 20%) 4 ml INH RQ8 [facility] Last Admin: 09/05/17 07:40 Dose: 4 ml Albuterol/Ipratropium (Duoneb 3 Mg/0.5 Mg (3 Ml) Ud) 3 ml INH RQ8 [facility] Last Admin: 09/05/17 07:40 Dose: 3 ml Aspirin (Aspirin Chewable) 81 mg PEG DAILY [facility] Last Admin: 09/05/17 09:10 Dose: 81 mg Bethanechol Chloride (Urecholine) 50 mg PEG TID [facility] Last Admin: 09/05/17 13:17 Dose: 50 mg Carvedilol (Coreg) 3.125 mg PEG BID [facility] Last Admin: 09/05/17 09:09 Dose: 3.125 mg Clopidogrel Bisulfate (Plavix) 75 mg PEG DAILY [facility] Last Admin: 09/05/17 09:09 Dose: 75 mg Emollient Ointment (Vaseline Oint) 5 gm TOP DAILY PRN PRN Reason: Dry skin Last Admin: 09/02/17 13:16 Dose: 5 gm Enoxaparin Sodium (Lovenox) 40 mg SC DAILY [facility] Last Admin: 09/05/17 09:09 Dose: 40 mg Famotidine (Pepcid) 20 mg PEG DAILY [facility] Last Admin: 09/05/17 09:10 Dose: 20 mg Finasteride (Proscar) 5 mg PEG DAILY [facility] Last Admin: 09/05/17 09:11 Dose: 5 mg Levetiracetam (Keppra) 500 mg PEG BID [facility] Last Admin: 09/05/17 09:09 Dose: 500 mg Saccharomyces Boulardii (Florastor) 250 mg PEG DAILY [facility] Last Admin: 09/05/17 09:10 Dose: 250 mg Scopolamine (Transderm-Scop) 1 patch TD Q3D [facility] Last Admin: 09/02/17 21:27 Dose: 1 patch Tamsulosin HCl (Flomax) 0.4 mg PEG DAILY [facility] Last Admin: 09/05/17 09:10 Dose: 0.4 mg Vitamin A (Vitamin A & D Oint Ud Foilpak) 1 ea TOP BID [facility] Last Admin: 09/05/17 09:11 Dose: 1 ea - Labs Labs: 08/31/17 07:11 08/31/17 06:25 PT 10.6 SECONDS (9.7-12.2) 11/24/15 14:10 INR 1.0 11/24/15 14:10 APTT 25 SECONDS (21-34) 11/24/15 14:10 Attending/Attestation - Attestation I have personally seen and examined this patient.: Yes I have fully participated in the care of the patient.: Yes I have reviewed all pertinent clinical information, including history, physical exam and plan: Yes Notes (Text): Seen and examined.No changes noted continue same management 09/05/17 14:46
[2017-09-05] MEDS: Albuterol-Ipratrop 3 mg / 0.5 (3 ml) UD INH SCH ×4 (00:08→23:34)
[2017-09-05] MEDS: Acetylcysteine 20% Inhal Soln (4ml) INH SCH ×4 (00:08→23:34)
[2017-09-05] MEDS: Enoxaparin 40 mg Syringe SC SCH (09:09)
[2017-09-05] MEDS: levETIRAcetam 100 mg/ml (5ml) Oral Syringe PEG SCH ×2 (09:09→17:18)
[2017-09-05] MEDS: Saccharomyces Boulardi 250 mg Cap PEG SCH (09:10)
[2017-09-05] MEDS: Vitamins A & D Oint UD Foilpak TOP SCH ×2 (09:11→17:19)
--- NOTE | 2017-09-05 22:56 | CP.PCM.PN ---
<Tanya Campos - Last Filed: 09/06/17 00:08> Subjective - Date & Time of Evaluation Date of Evaluation: 09/06/17 Time of Evaluation: 00:15 - Subjective Subjective: Medicine Note for Dr. Caro Patient seen and examined at bedside. Patient had anoxic brain injury in 2014, ROS unattainable. Objective - Vital Signs/Intake and Output Vital Signs (last 24 hours): Temp Pulse Resp BP Pulse Ox 98.7 F 66 20 121/78 96 09/05/17 15:00 09/05/17 15:00 09/05/17 15:00 09/05/17 15:00 09/05/17 15:00 Intake and Output: 09/05/17 09/06/17 18:59 06:59 Intake Total 780 Output Total 450 Balance 330 - Medications Medications: Current Medications Acetylcysteine (Acetylcysteine 20%) 4 ml INH RQ8 [facility] Last Admin: 09/05/17 16:18 Dose: 4 ml Albuterol/Ipratropium (Duoneb 3 Mg/0.5 Mg (3 Ml) Ud) 3 ml INH RQ8 [facility] Last Admin: 09/05/17 16:18 Dose: 3 ml Aspirin (Aspirin Chewable) 81 mg PEG DAILY [facility] Last Admin: 09/05/17 09:10 Dose: 81 mg Bethanechol Chloride (Urecholine) 50 mg PEG TID [facility] Last Admin: 09/05/17 17:18 Dose: 50 mg Carvedilol (Coreg) 3.125 mg PEG BID [facility] Last Admin: 09/05/17 17:17 Dose: 3.125 mg Clopidogrel Bisulfate (Plavix) 75 mg PEG DAILY [facility] Last Admin: 09/05/17 09:09 Dose: 75 mg Emollient Ointment (Vaseline Oint) 5 gm TOP DAILY PRN PRN Reason: Dry skin Last Admin: 09/02/17 13:16 Dose: 5 gm Enoxaparin Sodium (Lovenox) 40 mg SC DAILY [facility] Last Admin: 09/05/17 09:09 Dose: 40 mg Famotidine (Pepcid) 20 mg PEG DAILY [facility] Last Admin: 09/05/17 09:10 Dose: 20 mg Finasteride (Proscar) 5 mg PEG DAILY [facility] Last Admin: 09/05/17 09:11 Dose: 5 mg Levetiracetam (Keppra) 500 mg PEG BID [facility] Last Admin: 09/05/17 17:18 Dose: 500 mg Saccharomyces Boulardii (Florastor) 250 mg PEG DAILY [facility] Last Admin: 09/05/17 09:10 Dose: 250 mg Scopolamine (Transderm-Scop) 1 patch TD Q3D [facility] Last Admin: 09/05/17 20:18 Dose: 1 patch Tamsulosin HCl (Flomax) 0.4 mg PEG DAILY [facility] Last Admin: 09/05/17 09:10 Dose: 0.4 mg Vitamin A (Vitamin A & D Oint Ud Foilpak) 1 ea TOP BID [facility] Last Admin: 09/05/17 17:19 Dose: 1 ea - Labs Labs: 08/31/17 07:11 08/31/17 06:25 PT 10.6 SECONDS (9.7-12.2) 11/24/15 14:10 INR 1.0 11/24/15 14:10 APTT 25 SECONDS (21-34) 11/24/15 14:10 - Additional Findings Additional findings: - Constitutional Appears: Non-toxic, No Acute Distress - Head Exam Head Exam: ATRAUMATIC, NORMOCEPHALIC - ENT Exam ENT Exam: Mucous Membranes Moist - Neck Exam Additional comments: trach in place - Respiratory Exam Respiratory Exam: Rales, Wheezes, NORMAL BREATHING PATTERN. absent: Accessory Muscle Use, Respiratory Distress - Cardiovascular Exam Cardiovascular Exam: REGULAR RHYTHM, +S1 - GI/Abdominal Exam GI & Abdominal Exam: Soft, Normal Bowel Sounds. absent: Distended, Firm, Guarding, Rigid, Tenderness Additional comments: PEG Tube in place - Extremities Exam Extremities Exam: absent: Calf Tenderness, Pedal Edema Additional comments: SCDs and pressure ulcer boots in place. - Neurological Exam Neurological Exam: Altered (anoxic brain injury) - Skin Skin Exam: Dry, Warm Assessment and Plan - Assessment and Plan (Free Text) Plan: Anoxic encephalopathy s/p cardiac arrest in 05/2015 no acute changes Pt has non spontaneous movements. Continue tube feeds- goal of 60ml/hr, feedings held at night due to fluid overload Respiratory failure Trach in place, continue daily monitoring for secretions. No change in management at this time. Continue with aggressive suctioning multiple times a day per respiratory therapist. Monitor for signs of respiratory distress Thick secretions Duoneb 3ml INH Q6 and Mucomyst 4ml INH Q6H Scopolamine 1 patch TD Q3D [facility] Repeat CXR on 05/28/17: linear increased consolidative changes in the right mid- lung zone and left lung base which may represent atelectasis and/or infiltrate. Questionable trace left pleural effusion. moderate venous congestion. cardiomegaly. degenerative changes in the spine and shoulders Leukocytosis secondary to UTI. Resolved 08/10: WBC 8.2 afebrile Meropenem (started 07/22) - per Dr. Armstrong continue for a total of 2 weeks - Discontinued 08/05/17 ID consult: Dr. Armstrong --> help appreciated Urinary retention 07/21: NS stopped because tube feeds restarted 07/20: Urine dark in color, monitor, continue NS at 50 ml per hour 07/07/17: Catheter flushed, patient output approx. 500mL within one hour post flush. 06/27/17: Continue bladder massages to aid in voiding. 06/25/17: Patient voids with movement. Continue bladder massages to aid in voiding. 06/23/17: Patient will need to have daily bladder massage to allow for complete voiding 06/17/17: Nursing communication placed in: straight catherization with bladder scan> 100ml 06/08: urinary retention yesterday, was given 40mg lasix iv and patient was able to urinate through condom baker Take note condom cath not always securely in place so Is and Os are approximate as patient does wet bed Ordered- new condom catheter on 05/22/17 Flomax 0.4mg PEG daily Proscar 5mg PEG daily continue Bethanecol 50mg PEG TID- started after persistent retention and found to be effective. monitor I's and O's - I/O: 780/350 Check bladder scan for residual urine three times weekly Hypokalemia K+ on 08/10: 4.2 Sacral ulcer Healed Cont with offloading/cushioning/turning Continue frequent turning, protective ointment and skin checks. History of coronary artery disease s/p cardiac stents on 06/13/15 Cont ASA 81mg via PEG daily Cont Coreg 3.125mg PEG BID Cont Plavix 75 mg PEG daily Seizures Continue Keppra 500mg PEG BID for seizure prophylaxis Monitor for activity Lower extremity edema Improved SCDs in place Pressure ulcer boots on b/l Continue to monitor Prophylactic measure Pepcid 20 mg PEG BID Lovenox 40mg SC daily SCDs and offloading boots continue to turn and reposition q2hrs Continue to monitor medication administrations and clinical presentation weekly labs. vasoline ointment applied to feet prn to prevent hyperkeratosis Please hold feeding from 10pm-6am, placed into nursing communication Vitamin A & D for lips DW Dr. Caro, Beth DE LA CRUZ, PGY1 <Jeison Moore - Last Filed: 09/06/17 12:22> Objective - Vital Signs/Intake and Output Vital Signs (last 24 hours): Temp Pulse Resp BP Pulse Ox 98.1 F 83 20 114/57 L 97 09/06/17 10:00 09/06/17 10:00 09/06/17 10:00 09/06/17 10:00 09/06/17 10:00 Intake and Output: 09/06/17 09/06/17 06:59 18:59 Intake Total 1560 Output Total 700 Balance 860 - Medications Medications: Current Medications Acetylcysteine (Acetylcysteine 20%) 4 ml INH RQ8 [facility] Last Admin: 09/06/17 07:30 Dose: 4 ml Albuterol/Ipratropium (Duoneb 3 Mg/0.5 Mg (3 Ml) Ud) 3 ml INH RQ8 [facility] Last Admin: 09/06/17 07:30 Dose: 3 ml Aspirin (Aspirin Chewable) 81 mg PEG DAILY [facility] Last Admin: 09/06/17 10:02 Dose: 81 mg Bethanechol Chloride (Urecholine) 50 mg PEG TID [facility] Last Admin: 09/06/17 10:01 Dose: 50 mg Carvedilol (Coreg) 3.125 mg PEG BID [facility] Last Admin: 09/06/17 10:02 Dose: 3.125 mg Clopidogrel Bisulfate (Plavix) 75 mg PEG DAILY [facility] Last Admin: 09/06/17 10:01 Dose: 75 mg Emollient Ointment (Vaseline Oint) 5 gm TOP DAILY PRN PRN Reason: Dry skin Last Admin: 09/02/17 13:16 Dose: 5 gm Enoxaparin Sodium (Lovenox) 40 mg SC DAILY [facility] Last Admin: 09/06/17 10:01 Dose: 40 mg Famotidine (Pepcid) 20 mg PEG DAILY [facility] Last Admin: 09/06/17 10:02 Dose: 20 mg Finasteride (Proscar) 5 mg PEG DAILY [facility] Last Admin: 09/06/17 10:02 Dose: 5 mg Levetiracetam (Keppra) 500 mg PEG BID [facility] Last Admin: 09/06/17 10:01 Dose: 500 mg Saccharomyces Boulardii (Florastor) 250 mg PEG DAILY [facility] Last Admin: 09/06/17 10:02 Dose: 250 mg Scopolamine (Transderm-Scop) 1 patch TD Q3D [facility] Last Admin: 09/05/17 20:18 Dose: 1 patch Tamsulosin HCl (Flomax) 0.4 mg PEG DAILY [facility] Last Admin: 09/06/17 10:01 Dose: 0.4 mg Vitamin A (Vitamin A & D Oint Ud Foilpak) 1 ea TOP BID [facility] Last Admin: 09/06/17 10:02 Dose: 1 ea - Labs Labs: 08/31/17 07:11 08/31/17 06:25 PT 10.6 SECONDS (9.7-12.2) 11/24/15 14:10 INR 1.0 11/24/15 14:10 APTT 25 SECONDS (21-34) 11/24/15 14:10 Attending/Attestation - Attestation I have personally seen and examined this patient.: Yes I have fully participated in the care of the patient.: Yes I have reviewed all pertinent clinical information, including history, physical exam and plan: Yes Notes (Text): Patient was seen and examined Patient is no change in clinical condition Continue current medical management Awaiting placement Agree with the assessment and plan documented.
[2017-09-06] MEDS: Acetylcysteine 20% Inhal Soln (4ml) INH SCH ×2 (07:30→15:36)
[2017-09-06] MEDS: Albuterol-Ipratrop 3 mg / 0.5 (3 ml) UD INH SCH ×2 (07:30→15:36)
[2017-09-06] MEDS: Enoxaparin 40 mg Syringe SC SCH (10:01)
[2017-09-06] MEDS: levETIRAcetam 100 mg/ml (5ml) Oral Syringe PEG SCH ×2 (10:01→18:02)
[2017-09-06] MEDS: Vitamins A & D Oint UD Foilpak TOP SCH ×2 (10:02→18:03)
[2017-09-06] MEDS: Saccharomyces Boulardi 250 mg Cap PEG SCH (10:02)
[2017-09-07] MEDS: Acetylcysteine 20% Inhal Soln (4ml) INH SCH ×4 (01:00→23:50)
[2017-09-07] MEDS: Albuterol-Ipratrop 3 mg / 0.5 (3 ml) UD INH SCH ×4 (01:00→23:50)
--- NOTE | 2017-09-07 07:22 | CP.PCM.PN ---
<Al Srivastava - Last Filed: 09/07/17 14:55> Subjective - Date & Time of Evaluation Date of Evaluation: 09/07/17 Time of Evaluation: 07:21 - Subjective Subjective: PGY1 Medicine Note for Dr. Chavis Patient seen and examined at bedside this morning. Patient is non-verbal due to anoxic brain injury in 2014. ROS unattainable. Objective - Vital Signs/Intake and Output Vital Signs (last 24 hours): Temp Pulse Resp BP Pulse Ox 98.4 F 80 20 100/60 99 09/06/17 23:35 09/06/17 23:35 09/06/17 23:35 09/06/17 23:35 09/06/17 23:35 Intake and Output: 09/07/17 09/07/17 06:59 18:59 Intake Total 1560 Output Total 500 Balance 1060 - Medications Medications: Current Medications Acetylcysteine (Acetylcysteine 20%) 4 ml INH RQ8 [facility] Last Admin: 09/07/17 01:00 Dose: 4 ml Albuterol/Ipratropium (Duoneb 3 Mg/0.5 Mg (3 Ml) Ud) 3 ml INH RQ8 [facility] Last Admin: 09/07/17 01:00 Dose: 3 ml Aspirin (Aspirin Chewable) 81 mg PEG DAILY [facility] Last Admin: 09/06/17 10:02 Dose: 81 mg Bethanechol Chloride (Urecholine) 50 mg PEG TID [facility] Last Admin: 09/06/17 18:02 Dose: 50 mg Carvedilol (Coreg) 3.125 mg PEG BID [facility] Last Admin: 09/06/17 18:02 Dose: 3.125 mg Clopidogrel Bisulfate (Plavix) 75 mg PEG DAILY [facility] Last Admin: 09/06/17 10:01 Dose: 75 mg Emollient Ointment (Vaseline Oint) 5 gm TOP DAILY PRN PRN Reason: Dry skin Last Admin: 09/02/17 13:16 Dose: 5 gm Enoxaparin Sodium (Lovenox) 40 mg SC DAILY [facility] Last Admin: 09/06/17 10:01 Dose: 40 mg Famotidine (Pepcid) 20 mg PEG DAILY [facility] Last Admin: 09/06/17 10:02 Dose: 20 mg Finasteride (Proscar) 5 mg PEG DAILY [facility] Last Admin: 09/06/17 10:02 Dose: 5 mg Levetiracetam (Keppra) 500 mg PEG BID [facility] Last Admin: 09/06/17 18:02 Dose: 500 mg Saccharomyces Boulardii (Florastor) 250 mg PEG DAILY [facility] Last Admin: 09/06/17 10:02 Dose: 250 mg Scopolamine (Transderm-Scop) 1 patch TD Q3D [facility] Last Admin: 09/05/17 20:18 Dose: 1 patch Tamsulosin HCl (Flomax) 0.4 mg PEG DAILY [facility] Last Admin: 09/06/17 10:01 Dose: 0.4 mg Vitamin A (Vitamin A & D Oint Ud Foilpak) 1 ea TOP BID [facility] Last Admin: 09/06/17 18:03 Dose: 1 ea - Labs Labs: 08/31/17 07:11 08/31/17 06:25 PT 10.6 SECONDS (9.7-12.2) 11/24/15 14:10 INR 1.0 11/24/15 14:10 APTT 25 SECONDS (21-34) 11/24/15 14:10 - Constitutional Appears: Non-toxic, No Acute Distress, Chronically Ill - Head Exam Head Exam: ATRAUMATIC, NORMOCEPHALIC - ENT Exam ENT Exam: Mucous Membranes Moist - Neck Exam Additional comments: Trach in place - Respiratory Exam Respiratory Exam: Rales (scattered throughout b/l), Wheezes, NORMAL BREATHING PATTERN. absent: Accessory Muscle Use, Respiratory Distress - Cardiovascular Exam Cardiovascular Exam: REGULAR RHYTHM, +S1, +S2 - GI/Abdominal Exam GI & Abdominal Exam: Soft, Normal Bowel Sounds. absent: Firm, Guarding, Rigid, Tenderness - Exam Exam: Bladder Distension Additional comments: condom cath in place - Extremities Exam Additional comments: scds and pressure ulcer boots in place. - Neurological Exam Neurological Exam: Altered (anoxic brain injury) - Skin Skin Exam: Dry, Normal Color, Warm Assessment and Plan - Assessment and Plan (Free Text) Plan: Anoxic encephalopathy s/p cardiac arrest in 05/2015 no acute changes Pt has non spontaneous movements. Continue tube feeds- goal of 60ml/hr, feedings held at night due to fluid overload Respiratory failure Trach in place, continue daily monitoring for secretions. No change in management at this time. Continue with aggressive suctioning multiple times a day per respiratory therapist. Monitor for signs of respiratory distress Thick secretions Duoneb 3ml INH Q6 and Mucomyst 4ml INH Q6H Scopolamine 1 patch TD Q3D [facility] Repeat CXR on 05/28/17: linear increased consolidative changes in the right mid- lung zone and left lung base which may represent atelectasis and/or infiltrate. Questionable trace left pleural effusion. moderate venous congestion. cardiomegaly. degenerative changes in the spine and shoulders Leukocytosis secondary to UTI. Resolved 08/10: WBC 8.2 afebrile Meropenem (started 07/22) - per Dr. Armstrong continue for a total of 2 weeks - Discontinued 08/05/17 ID consult: Dr. Armstrong --> help appreciated Urinary retention 07/21: NS stopped because tube feeds restarted 07/20: Urine dark in color, monitor, continue NS at 50 ml per hour 07/07/17: Catheter flushed, patient output approx. 500mL within one hour post flush. 06/27/17: Continue bladder massages to aid in voiding. 06/25/17: Patient voids with movement. Continue bladder massages to aid in voiding. 06/23/17: Patient will need to have daily bladder massage to allow for complete voiding 06/17/17: Nursing communication placed in: straight catherization with bladder scan> 100ml 06/08: urinary retention yesterday, was given 40mg lasix iv and patient was able to urinate through condom baker Take note condom cath not always securely in place so Is and Os are approximate as patient does wet bed Ordered- new condom catheter on 05/22/17 Flomax 0.4mg PEG daily Proscar 5mg PEG daily continue Bethanecol 50mg PEG TID- started after persistent retention and found to be effective. monitor I's and O's - I/O: 780/350 Check bladder scan for residual urine three times weekly Hypokalemia K+ on 08/10: 4.2 Sacral ulcer Healed Cont with offloading/cushioning/turning Continue frequent turning, protective ointment and skin checks. History of coronary artery disease s/p cardiac stents on 06/13/15 Cont ASA 81mg via PEG daily Cont Coreg 3.125mg PEG BID Cont Plavix 75 mg PEG daily Seizures Continue Keppra 500mg PEG BID for seizure prophylaxis Monitor for activity Lower extremity edema Improved SCDs in place Pressure ulcer boots on b/l Continue to monitor Prophylactic measure Pepcid 20 mg PEG BID Lovenox 40mg SC daily SCDs and offloading boots continue to turn and reposition q2hrs Continue to monitor medication administrations and clinical presentation weekly labs. vasoline ointment applied to feet prn to prevent hyperkeratosis Please hold feeding from 10pm-6am, placed into nursing communication Vitamin A & D for lips No update at this time. Case discussed with Dr. Palmira Melendez Carola PGY1 <Amandeep Chavis H - Last Filed: 09/07/17 16:09> Objective - Vital Signs/Intake and Output Vital Signs (last 24 hours): Temp Pulse Resp BP Pulse Ox 98.6 F 84 20 115/74 99 09/07/17 15:08 09/07/17 15:08 09/07/17 15:08 09/07/17 15:08 09/07/17 15:08 Intake and Output: 09/07/17 09/07/17 06:59 18:59 Intake Total 1560 780 Output Total 500 900 Balance 1060 -120 - Medications Medications: Current Medications Acetylcysteine (Acetylcysteine 20%) 4 ml INH RQ8 [facility] Last Admin: 09/07/17 15:48 Dose: 4 ml Albuterol/Ipratropium (Duoneb 3 Mg/0.5 Mg (3 Ml) Ud) 3 ml INH RQ8 [facility] Last Admin: 09/07/17 15:48 Dose: 3 ml Aspirin (Aspirin Chewable) 81 mg PEG DAILY [facility] Last Admin: 09/07/17 10:22 Dose: 81 mg Bethanechol Chloride (Urecholine) 50 mg PEG TID [facility] Last Admin: 09/07/17 14:11 Dose: 50 mg Carvedilol (Coreg) 3.125 mg PEG BID [facility] Last Admin: 09/07/17 10:22 Dose: 3.125 mg Clopidogrel Bisulfate (Plavix) 75 mg PEG DAILY [facility] Last Admin: 09/07/17 10:22 Dose: 75 mg Emollient Ointment (Vaseline Oint) 5 gm TOP DAILY PRN PRN Reason: Dry skin Last Admin: 09/02/17 13:16 Dose: 5 gm Enoxaparin Sodium (Lovenox) 40 mg SC DAILY [facility] Last Admin: 09/07/17 10:22 Dose: 40 mg Famotidine (Pepcid) 20 mg PEG DAILY [facility] Last Admin: 09/07/17 10:22 Dose: 20 mg Finasteride (Proscar) 5 mg PEG DAILY [facility] Last Admin: 09/07/17 10:22 Dose: 5 mg Levetiracetam (Keppra) 500 mg PEG BID [facility] Last Admin: 09/07/17 10:21 Dose: 500 mg Saccharomyces Boulardii (Florastor) 250 mg PEG DAILY [facility] Last Admin: 09/07/17 10:21 Dose: 250 mg Scopolamine (Transderm-Scop) 1 patch TD Q3D [facility] Last Admin: 09/05/17 20:18 Dose: 1 patch Tamsulosin HCl (Flomax) 0.4 mg PEG DAILY [facility] Last Admin: 09/07/17 10:22 Dose: 0.4 mg Vitamin A (Vitamin A & D Oint Ud Foilpak) 1 ea TOP BID [facility] Last Admin: 09/07/17 10:44 Dose: 1 ea - Labs Labs: 09/07/17 07:31 09/07/17 07:31 PT 10.6 SECONDS (9.7-12.2) 11/24/15 14:10 INR 1.0 11/24/15 14:10 APTT 25 SECONDS (21-34) 11/24/15 14:10 Assessment and Plan (1) Prophylactic measure Status: Acute (2) Anoxic encephalopathy Status: Chronic (3) STEMI (ST elevation myocardial infarction) Status: Acute (4) Cardiac arrest Status: Acute (5) Seizures Status: Acute (6) Respiratory failure Status: Chronic Attending/Attestation - Attestation I have personally seen and examined this patient.: Yes I have fully participated in the care of the patient.: Yes I have reviewed all pertinent clinical information, including history, physical exam and plan: Yes
[2017-09-07 07:39] LABS: BASO # 0.1 K/uL (0.0-0.2); BASO % 0.7 % (0.0-2.0); EOS # 0.4 K/uL (0.0-0.7); EOS % 4.6 % (0.0-4.0); HEMOGLOBIN 11.2 g/dL (12.0-18.0); LYMPH % 20.9 % (20.0-40.0); MEAN CELL VOLUME 88.7 fL (80.0-94.0); MEAN CORPUSCULAR HGB CONC 32.7 g/dL (33.0-37.0); MEAN PLATELET VOLUME 8.9 fL (7.2-11.7); MONO # 0.9 K/uL (0.0-0.8); MONO % 9.3 % (0.0-10.0); NEUT # 6.1 K/uL (1.8-7.0); NEUT % 64.5 % (50.0-75.0); NRBC % 0.1 % (0.0-2.0); RBC 3.87 Mil/uL (4.40-5.90); RED CELL DISTRIBUTION WIDTH 15.3 % (11.5-14.5); WHITE BLOOD COUNT 9.5 K/uL (4.8-10.8)
[2017-09-07 08:29] LABS: ALBUMIN 3.8 g/dL (3.5-5.0)
[2017-09-07 08:32] LABS: ALB/GLOB RATIO 0.8 (1.0-2.1); AST/SGOT 28 U/L (17-59); GFR NON-AFRICAN AMERICAN > 60
[2017-09-07 08:33] LABS: ALT/SGPT 39 U/L (21-72); BLOOD UREA NITROGEN 12 mg/dL (9-20); CALCIUM 8.6 mg/dl (8.6-10.4)
[2017-09-07] MEDS: levETIRAcetam 100 mg/ml (5ml) Oral Syringe PEG SCH ×2 (10:21→17:44)
[2017-09-07] MEDS: Saccharomyces Boulardi 250 mg Cap PEG SCH (10:21)
[2017-09-07] MEDS: Enoxaparin 40 mg Syringe SC SCH (10:22)
[2017-09-07] MEDS: Vitamins A & D Oint UD Foilpak TOP SCH ×2 (10:44→17:44)
[2017-09-08] MEDS: Albuterol-Ipratrop 3 mg / 0.5 (3 ml) UD INH SCH ×2 (07:51→16:22)
[2017-09-08] MEDS: Acetylcysteine 20% Inhal Soln (4ml) INH SCH ×2 (07:52→16:22)
--- NOTE | 2017-09-08 08:49 | CP.PCM.PN ---
Subjective - Date & Time of Evaluation Date of Evaluation: 09/08/17 Time of Evaluation: 08:43 - Subjective Subjective: PGY1 Medicine Note for Dr. Chavis Patient seen and examined at bedside this morning. Patient had anoxic brain injury in 2014, ROS unattainable. Objective - Vital Signs/Intake and Output Vital Signs (last 24 hours): Temp Pulse Resp BP Pulse Ox 98.6 F 85 20 115/79 99 09/08/17 07:45 09/08/17 07:45 09/08/17 07:45 09/08/17 07:45 09/08/17 07:45 Intake and Output: 09/08/17 09/08/17 06:59 18:59 Intake Total 1580 400 Output Total 300 300 Balance 1280 100 - Medications Medications: Current Medications Acetylcysteine (Acetylcysteine 20%) 4 ml INH RQ8 [facility] Last Admin: 09/08/17 07:52 Dose: 4 ml Albuterol/Ipratropium (Duoneb 3 Mg/0.5 Mg (3 Ml) Ud) 3 ml INH RQ8 [facility] Last Admin: 09/08/17 07:51 Dose: 3 ml Aspirin (Aspirin Chewable) 81 mg PEG DAILY [facility] Last Admin: 09/07/17 10:22 Dose: 81 mg Bethanechol Chloride (Urecholine) 50 mg PEG TID [facility] Last Admin: 09/07/17 17:44 Dose: 50 mg Carvedilol (Coreg) 3.125 mg PEG BID [facility] Last Admin: 09/07/17 17:44 Dose: 3.125 mg Clopidogrel Bisulfate (Plavix) 75 mg PEG DAILY [facility] Last Admin: 09/07/17 10:22 Dose: 75 mg Enoxaparin Sodium (Lovenox) 40 mg SC DAILY [facility] Last Admin: 09/07/17 10:22 Dose: 40 mg Famotidine (Pepcid) 20 mg PEG DAILY [facility] Last Admin: 09/07/17 10:22 Dose: 20 mg Finasteride (Proscar) 5 mg PEG DAILY [facility] Last Admin: 09/07/17 10:22 Dose: 5 mg Levetiracetam (Keppra) 500 mg PEG BID [facility] Last Admin: 09/07/17 17:44 Dose: 500 mg Saccharomyces Boulardii (Florastor) 250 mg PEG DAILY [facility] Last Admin: 10/16/17 10:21 Dose: 250 mg Scopolamine (Transderm-Scop) 1 patch TD Q3D [facility] Last Admin: 09/05/17 20:18 Dose: 1 patch Tamsulosin HCl (Flomax) 0.4 mg PEG DAILY [facility] Last Admin: 09/07/17 10:22 Dose: 0.4 mg Vitamin A (Vitamin A & D Oint Ud Foilpak) 1 ea TOP BID [facility] Last Admin: 09/07/17 17:44 Dose: 1 ea - Labs Labs: 09/07/17 07:31 09/07/17 07:31 PT 10.6 SECONDS (9.7-12.2) 11/24/15 14:10 INR 1.0 11/24/15 14:10 APTT 25 SECONDS (21-34) 11/24/15 14:10 - Constitutional Appears: Non-toxic, No Acute Distress, Chronically Ill - Head Exam Head Exam: ATRAUMATIC, NORMOCEPHALIC - ENT Exam ENT Exam: Mucous Membranes Moist - Respiratory Exam Respiratory Exam: Rales (throughout), NORMAL BREATHING PATTERN. absent: Accessory Muscle Use, Respiratory Distress Additional comments: trach in place - Cardiovascular Exam Cardiovascular Exam: REGULAR RHYTHM, +S1, +S2 - GI/Abdominal Exam GI & Abdominal Exam: Soft, Normal Bowel Sounds. absent: Distended, Firm, Guarding, Rigid, Tenderness Additional comments: PEG in place - Extremities Exam Extremities Exam: Normal Inspection. absent: Calf Tenderness, Pedal Edema Additional comments: SCDs and pressure ulcer boots in place. - Neurological Exam Neurological Exam: Altered (anoxic brain injury in 2014) - Skin Skin Exam: Dry, Normal Color, Warm Assessment and Plan - Assessment and Plan (Free Text) Plan: Anoxic encephalopathy s/p cardiac arrest in 05/2015 no acute changes Pt has non spontaneous movements. Continue tube feeds- goal of 60ml/hr, feedings held at night due to fluid overload Respiratory failure Trach in place, continue daily monitoring for secretions. No change in management at this time. Continue with aggressive suctioning multiple times a day per respiratory therapist. Monitor for signs of respiratory distress Thick secretions Duoneb 3ml INH Q6 and Mucomyst 4ml INH Q6H Scopolamine 1 patch TD Q3D [facility] Repeat CXR on 05/28/17: linear increased consolidative changes in the right mid- lung zone and left lung base which may represent atelectasis and/or infiltrate. Questionable trace left pleural effusion. moderate venous congestion. cardiomegaly. degenerative changes in the spine and shoulders Leukocytosis secondary to UTI. Resolved 08/10: WBC 8.2 afebrile Meropenem (started 07/22) - per Dr. Armstrong continue for a total of 2 weeks - Discontinued 08/05/17 ID consult: Dr. Armstrong --> help appreciated Urinary retention 07/21: NS stopped because tube feeds restarted 07/20: Urine dark in color, monitor, continue NS at 50 ml per hour 07/07/17: Catheter flushed, patient output approx. 500mL within one hour post flush. 06/27/17: Continue bladder massages to aid in voiding. 06/25/17: Patient voids with movement. Continue bladder massages to aid in voiding. 06/23/17: Patient will need to have daily bladder massage to allow for complete voiding 06/17/17: Nursing communication placed in: straight catherization with bladder scan> 100ml 06/08: urinary retention yesterday, was given 40mg lasix iv and patient was able to urinate through condom baker Take note condom cath not always securely in place so Is and Os are approximate as patient does wet bed Ordered- new condom catheter on 05/22/17 Flomax 0.4mg PEG daily Proscar 5mg PEG daily continue Bethanecol 50mg PEG TID- started after persistent retention and found to be effective. monitor I's and O's - I/O: 780/350 Check bladder scan for residual urine three times weekly Hypokalemia K+ on 08/10: 4.2 Sacral ulcer Healed Cont with offloading/cushioning/turning Continue frequent turning, protective ointment and skin checks. History of coronary artery disease s/p cardiac stents on 06/13/15 Cont ASA 81mg via PEG daily Cont Coreg 3.125mg PEG BID Cont Plavix 75 mg PEG daily Seizures Continue Keppra 500mg PEG BID for seizure prophylaxis Monitor for activity Lower extremity edema Improved SCDs in place Pressure ulcer boots on b/l Continue to monitor Prophylactic measure Pepcid 20 mg PEG BID Lovenox 40mg SC daily SCDs and offloading boots continue to turn and reposition q2hrs Continue to monitor medication administrations and clinical presentation weekly labs. vasoline ointment applied to feet prn to prevent hyperkeratosis Please hold feeding from 10pm-6am, placed into nursing communication Vitamin A & D for lips No update at this time. Case discussed with Dr. Palmira Melendez Carola PGY1
[2017-09-08] MEDS: levETIRAcetam 100 mg/ml (5ml) Oral Syringe PEG SCH ×2 (10:50→18:11)
[2017-09-08] MEDS: Saccharomyces Boulardi 250 mg Cap PEG SCH (10:50)
[2017-09-08] MEDS: Enoxaparin 40 mg Syringe SC SCH (10:50)
[2017-09-08] MEDS: Vitamins A & D Oint UD Foilpak TOP SCH ×2 (10:51→18:11)
[2017-09-09] MEDS: Acetylcysteine 20% Inhal Soln (4ml) INH SCH ×4 (01:15→23:47)
[2017-09-09] MEDS: Albuterol-Ipratrop 3 mg / 0.5 (3 ml) UD INH SCH ×4 (01:15→23:47)
--- NOTE | 2017-09-09 09:46 | CP.PCM.PN ---
Subjective - Date & Time of Evaluation Date of Evaluation: 09/09/17 Time of Evaluation: 09:43 - Subjective Subjective: Progress note for Dr. Chavis Patient seen and examined at bedside this morning. Patient had anoxic brain injury in 2015, ROS unattainable. No acute events overnight per nursing. Secretions suctioned at bedside Objective - Vital Signs/Intake and Output Vital Signs (last 24 hours): Temp Pulse Resp BP Pulse Ox 98 F 87 20 112/70 99 09/09/17 07:39 09/09/17 07:39 09/09/17 07:39 09/09/17 07:39 09/09/17 07:39 Intake and Output: 09/09/17 09/09/17 06:59 18:59 Intake Total 1560 Output Total 900 Balance 660 - Medications Medications: Current Medications Acetylcysteine (Acetylcysteine 20%) 4 ml INH RQ8 [facility] Last Admin: 09/09/17 07:50 Dose: 4 ml Albuterol/Ipratropium (Duoneb 3 Mg/0.5 Mg (3 Ml) Ud) 3 ml INH RQ8 [facility] Last Admin: 09/09/17 07:50 Dose: 3 ml Aspirin (Aspirin Chewable) 81 mg PEG DAILY [facility] Last Admin: 09/08/17 10:49 Dose: 81 mg Bethanechol Chloride (Urecholine) 50 mg PEG TID [facility] Last Admin: 09/08/17 18:11 Dose: 50 mg Carvedilol (Coreg) 3.125 mg PEG BID [facility] Last Admin: 09/08/17 18:11 Dose: 3.125 mg Clopidogrel Bisulfate (Plavix) 75 mg PEG DAILY [facility] Last Admin: 09/08/17 10:50 Dose: 75 mg Enoxaparin Sodium (Lovenox) 40 mg SC DAILY [facility] Last Admin: 09/08/17 10:50 Dose: 40 mg Famotidine (Pepcid) 20 mg PEG DAILY [facility] Last Admin: 09/08/17 10:50 Dose: 20 mg Finasteride (Proscar) 5 mg PEG DAILY [facility] Last Admin: 09/08/17 10:50 Dose: 5 mg Levetiracetam (Keppra) 500 mg PEG BID [facility] Last Admin: 09/08/17 18:11 Dose: 500 mg Saccharomyces Boulardii (Florastor) 250 mg PEG DAILY [facility] Last Admin: 09/08/17 10:50 Dose: 250 mg Scopolamine (Transderm-Scop) 1 patch TD Q3D [facility] Last Admin: 09/08/17 21:00 Dose: 1 patch Tamsulosin HCl (Flomax) 0.4 mg PEG DAILY [facility] Last Admin: 09/08/17 10:50 Dose: 0.4 mg Vitamin A (Vitamin A & D Oint Ud Foilpak) 1 ea TOP BID [facility] Last Admin: 09/08/17 18:11 Dose: 1 ea - Labs Labs: 09/07/17 07:31 09/07/17 07:31 PT 10.6 SECONDS (9.7-12.2) 11/24/15 14:10 INR 1.0 11/24/15 14:10 APTT 25 SECONDS (21-34) 11/24/15 14:10 - Constitutional Appears: Non-toxic - Head Exam Head Exam: NORMAL INSPECTION - Eye Exam Eye Exam: EOMI, Normal appearance - ENT Exam ENT Exam: Mucous Membranes Moist - Neck Exam Neck Exam: Full ROM - Respiratory Exam Respiratory Exam: Accessory Muscle Use (prior to suctioning), Decreased Breath Sounds, Wheezes (reduced with suctioning). absent: Respiratory Distress Additional comments: patient is on trach - Cardiovascular Exam Cardiovascular Exam: REGULAR RHYTHM, +S1, +S2. absent: Bradycardia, Tachycardia - GI/Abdominal Exam GI & Abdominal Exam: Soft. absent: Tenderness - Extremities Exam Extremities Exam: absent: Pedal Edema - Neurological Exam Neurological Exam: Awake - Skin Skin Exam: Dry, Pallor Assessment and Plan - Assessment and Plan (Free Text) Assessment: Anoxic encephalopathy s/p cardiac arrest in 05/2015 no acute changes Pt has non spontaneous movements. Continue tube feeds- goal of 60ml/hr, feedings held at night due to fluid overload Respiratory failure Trach in place, continue daily monitoring for secretions. No change in management at this time. Continue with aggressive suctioning multiple times a day per respiratory therapist. Monitor for signs of respiratory distress Thick secretions Duoneb 3ml INH Q6 and Mucomyst 4ml INH Q6H Scopolamine 1 patch TD Q3D [facility] Repeat CXR on 05/28/17: linear increased consolidative changes in the right mid- lung zone and left lung base which may represent atelectasis and/or infiltrate. Questionable trace left pleural effusion. moderate venous congestion. cardiomegaly. degenerative changes in the spine and shoulders 09/09: Secretions suctioned at bedside Leukocytosis secondary to UTI. Resolved 08/10: WBC 8.2 afebrile Meropenem (started 07/22) - per Dr. Armstrong continue for a total of 2 weeks - Discontinued 08/05/17 ID consult: Dr. Armstrong --> help appreciated Urinary retention 07/21: NS stopped because tube feeds restarted 07/20: Urine dark in color, monitor, continue NS at 50 ml per hour 07/07/17: Catheter flushed, patient output approx. 500mL within one hour post flush. 06/27/17: Continue bladder massages to aid in voiding. 06/25/17: Patient voids with movement. Continue bladder massages to aid in voiding. 06/23/17: Patient will need to have daily bladder massage to allow for complete voiding 06/17/17: Nursing communication placed in: straight catherization with bladder scan> 100ml 06/08: urinary retention yesterday, was given 40mg lasix iv and patient was able to urinate through condom baker Take note condom cath not always securely in place so Is and Os are approximate as patient does wet bed Ordered- new condom catheter on 05/22/17 Flomax 0.4mg PEG daily Proscar 5mg PEG daily continue Bethanecol 50mg PEG TID- started after persistent retention and found to be effective. monitor I's and O's - I/O: 780/350 Check bladder scan for residual urine three times weekly Hypokalemia K+ on 08/10: 4.2 Sacral ulcer Healed Cont with offloading/cushioning/turning Continue frequent turning, protective ointment and skin checks. History of coronary artery disease s/p cardiac stents on 06/13/15 Cont ASA 81mg via PEG daily Cont Coreg 3.125mg PEG BID Cont Plavix 75 mg PEG daily Seizures Continue Keppra 500mg PEG BID for seizure prophylaxis Monitor for activity Lower extremity edema Improved SCDs in place Pressure ulcer boots on /l Continue to monitor Prophylactic measure Pepcid 20 mg PEG BID Lovenox 40mg SC daily SCDs and offloading boots continue to turn and reposition q2hrs Continue to monitor medication administrations and clinical presentation weekly labs. vasoline ointment applied to feet prn to prevent hyperkeratosis Please hold feeding from 10pm-6am, placed into nursing communication Vitamin A & D for lips No update at this time. Case discussed with Dr. Palmira Hairston DO PGY1
[2017-09-09] MEDS: Enoxaparin 40 mg Syringe SC SCH (10:52)
[2017-09-09] MEDS: Saccharomyces Boulardi 250 mg Cap PEG SCH (10:52)
[2017-09-09] MEDS: levETIRAcetam 100 mg/ml (5ml) Oral Syringe PEG SCH ×2 (10:53→17:42)
[2017-09-09] MEDS: Vitamins A & D Oint UD Foilpak TOP SCH ×2 (10:53→17:42)
[2017-09-10] MEDS: Acetylcysteine 20% Inhal Soln (4ml) INH SCH ×3 (07:52→23:41)
[2017-09-10] MEDS: Albuterol-Ipratrop 3 mg / 0.5 (3 ml) UD INH SCH ×3 (07:52→23:41)
--- NOTE | 2017-09-10 09:43 | CP.PCM.PN ---
Subjective - Date & Time of Evaluation Date of Evaluation: 09/10/17 Time of Evaluation: 09:40 - Subjective Subjective: Progress Note for Dr. Chavis Patient Seen and Examined at bedside. No acute events overnight. Secretions suctioned at bedside. Unable to obtain ROS due to patient's mental status. Objective - Vital Signs/Intake and Output Vital Signs (last 24 hours): Temp Pulse Resp BP Pulse Ox 99.4 F 93 H 20 117/74 100 09/10/17 08:00 09/10/17 08:00 09/10/17 08:00 09/10/17 08:00 09/10/17 08:00 Intake and Output: 09/10/17 09/10/17 06:59 18:59 Intake Total 1580 Output Total 900 Balance 680 - Medications Medications: Current Medications Acetylcysteine (Acetylcysteine 20%) 4 ml INH RQ8 [facility] Last Admin: 09/10/17 07:52 Dose: 4 ml Albuterol/Ipratropium (Duoneb 3 Mg/0.5 Mg (3 Ml) Ud) 3 ml INH RQ8 [facility] Last Admin: 09/10/17 07:52 Dose: 3 ml Aspirin (Aspirin Chewable) 81 mg PEG DAILY [facility] Last Admin: 09/09/17 10:52 Dose: 81 mg Bethanechol Chloride (Urecholine) 50 mg PEG TID [facility] Last Admin: 09/09/17 17:42 Dose: 50 mg Carvedilol (Coreg) 3.125 mg PEG BID [facility] Last Admin: 09/09/17 17:41 Dose: 3.125 mg Clopidogrel Bisulfate (Plavix) 75 mg PEG DAILY [facility] Last Admin: 09/09/17 10:52 Dose: 75 mg Enoxaparin Sodium (Lovenox) 40 mg SC DAILY [facility] Last Admin: 09/09/17 10:52 Dose: 40 mg Famotidine (Pepcid) 20 mg PEG DAILY [facility] Last Admin: 09/09/17 10:52 Dose: 20 mg Finasteride (Proscar) 5 mg PEG DAILY [facility] Last Admin: 09/09/17 10:53 Dose: 5 mg Levetiracetam (Keppra) 500 mg PEG BID [facility] Last Admin: 09/09/17 17:42 Dose: 500 mg Saccharomyces Boulardii (Florastor) 250 mg PEG DAILY [facility] Last Admin: 09/09/17 10:52 Dose: 250 mg Scopolamine (Transderm-Scop) 1 patch TD Q3D [facility] Last Admin: 09/08/17 21:00 Dose: 1 patch Tamsulosin HCl (Flomax) 0.4 mg PEG DAILY [facility] Last Admin: 09/09/17 10:52 Dose: 0.4 mg Vitamin A (Vitamin A & D Oint Ud Foilpak) 1 ea TOP BID [facility] Last Admin: 09/09/17 17:42 Dose: 1 ea - Labs Labs: 09/07/17 07:31 09/07/17 07:31 PT 10.6 SECONDS (9.7-12.2) 11/24/15 14:10 INR 1.0 11/24/15 14:10 APTT 25 SECONDS (21-34) 11/24/15 14:10 - Constitutional Appears: Non-toxic - Head Exam Head Exam: NORMAL INSPECTION - Eye Exam Eye Exam: Normal appearance - ENT Exam ENT Exam: Mucous Membranes Moist - Respiratory Exam Additional comments: crackles resolved after suctioning - Cardiovascular Exam Cardiovascular Exam: REGULAR RHYTHM, +S1, +S2. absent: Bradycardia, Tachycardia - GI/Abdominal Exam GI & Abdominal Exam: Soft Additional comments: PEG tube - Extremities Exam Extremities Exam: absent: Pedal Edema Additional comments: bilateral upper extremity edema present - Neurological Exam Neurological Exam: Awake - Psychiatric Exam Psychiatric exam: Normal Affect, Normal Mood - Skin Skin Exam: Dry, Intact Assessment and Plan - Assessment and Plan (Free Text) Assessment: Anoxic encephalopathy s/p cardiac arrest in 05/2015 no acute changes Pt has non spontaneous movements. Continue tube feeds- goal of 60ml/hr, feedings held at night due to fluid overload Respiratory failure Trach in place, continue daily monitoring for secretions. No change in management at this time. Continue with aggressive suctioning multiple times a day per respiratory therapist. Monitor for signs of respiratory distress Thick secretions Duoneb 3ml INH Q6 and Mucomyst 4ml INH Q6H Scopolamine 1 patch TD Q3D [facility] Repeat CXR on 05/28/17: linear increased consolidative changes in the right mid- lung zone and left lung base which may represent atelectasis and/or infiltrate. Questionable trace left pleural effusion. moderate venous congestion. cardiomegaly. degenerative changes in the spine and shoulders 09/09: Secretions suctioned at bedside Leukocytosis secondary to UTI. Resolved 08/10: WBC 8.2 afebrile Meropenem (started 07/22) - per Dr. Armstrong continue for a total of 2 weeks - Discontinued 08/05/17 ID consult: Dr. Armstrong --> help appreciated Urinary retention 07/21: NS stopped because tube feeds restarted 07/20: Urine dark in color, monitor, continue NS at 50 ml per hour 07/07/17: Catheter flushed, patient output approx. 500mL within one hour post flush. 06/27/17: Continue bladder massages to aid in voiding. 06/25/17: Patient voids with movement. Continue bladder massages to aid in voiding. 06/23/17: Patient will need to have daily bladder massage to allow for complete voiding 06/17/17: Nursing communication placed in: straight catherization with bladder scan> 100ml 06/08: urinary retention yesterday, was given 40mg lasix iv and patient was able to urinate through condom baker Take note condom cath not always securely in place so Is and Os are approximate as patient does wet bed Ordered- new condom catheter on 05/22/17 Flomax 0.4mg PEG daily Proscar 5mg PEG daily continue Bethanecol 50mg PEG TID- started after persistent retention and found to be effective. monitor I's and O's - I/O: 780/350 Check bladder scan for residual urine three times weekly Hypokalemia K+ on 08/10: 4.2 Sacral ulcer Healed Cont with offloading/cushioning/turning Continue frequent turning, protective ointment and skin checks. History of coronary artery disease s/p cardiac stents on 06/13/15 Cont ASA 81mg via PEG daily Cont Coreg 3.125mg PEG BID Cont Plavix 75 mg PEG daily Seizures Continue Keppra 500mg PEG BID for seizure prophylaxis Monitor for activity Lower extremity edema Improved SCDs in place Pressure ulcer boots on b/l Continue to monitor Prophylactic measure Pepcid 20 mg PEG BID Lovenox 40mg SC daily SCDs and offloading boots continue to turn and reposition q2hrs Continue to monitor medication administrations and clinical presentation weekly labs. vasoline ointment applied to feet prn to prevent hyperkeratosis Please hold feeding from 10pm-6am, placed into nursing communication Vitamin A & D for lips No update at this time. Case discussed with Dr. Palmira Hairston, DO PGY1
[2017-09-10] MEDS: Saccharomyces Boulardi 250 mg Cap PEG SCH (10:27)
[2017-09-10] MEDS: Enoxaparin 40 mg Syringe SC SCH (10:28)
[2017-09-10] MEDS: levETIRAcetam 100 mg/ml (5ml) Oral Syringe PEG SCH ×2 (10:28→17:58)
[2017-09-10] MEDS: Vitamins A & D Oint UD Foilpak TOP SCH ×2 (10:30→18:02)
--- NOTE | 2017-09-11 07:14 | CP.PCM.PN ---
Subjective - Date & Time of Evaluation Date of Evaluation: 09/11/17 Time of Evaluation: 06:25 - Subjective Subjective: PGY-1 Progress note Patient seen and examined at bedside. ROS unable to ascertain due to prior anoxic brain injury. No acute events overnight per nursing. Objective - Vital Signs/Intake and Output Vital Signs (last 24 hours): Temp Pulse Resp BP Pulse Ox 98.5 F 90 20 127/79 100 09/10/17 23:30 09/10/17 23:30 09/10/17 23:30 09/10/17 23:30 09/10/17 23:30 Intake and Output: 09/11/17 09/11/17 06:59 18:59 Intake Total 1560 Output Total 400 Balance 1160 - Medications Medications: Current Medications Acetylcysteine (Acetylcysteine 20%) 4 ml INH RQ8 [facility] Last Admin: 09/10/17 23:41 Dose: 4 ml Albuterol/Ipratropium (Duoneb 3 Mg/0.5 Mg (3 Ml) Ud) 3 ml INH RQ8 [facility] Last Admin: 09/10/17 23:41 Dose: 3 ml Aspirin (Aspirin Chewable) 81 mg PEG DAILY [facility] Last Admin: 09/10/17 10:28 Dose: 81 mg Bethanechol Chloride (Urecholine) 50 mg PEG TID [facility] Last Admin: 09/10/17 18:01 Dose: 50 mg Carvedilol (Coreg) 3.125 mg PEG BID [facility] Last Admin: 09/10/17 18:01 Dose: 3.125 mg Clopidogrel Bisulfate (Plavix) 75 mg PEG DAILY [facility] Last Admin: 09/10/17 10:28 Dose: 75 mg Famotidine (Pepcid) 20 mg PEG DAILY [facility] Last Admin: 09/10/17 10:28 Dose: 20 mg Finasteride (Proscar) 5 mg PEG DAILY [facility] Last Admin: 09/10/17 10:28 Dose: 5 mg Levetiracetam (Keppra) 500 mg PEG BID [facility] Last Admin: 09/10/17 17:58 Dose: 500 mg Saccharomyces Boulardii (Florastor) 250 mg PEG DAILY [facility] Last Admin: 09/10/17 10:27 Dose: 250 mg Scopolamine (Transderm-Scop) 1 patch TD Q3D [facility] Last Admin: 09/08/17 21:00 Dose: 1 patch Tamsulosin HCl (Flomax) 0.4 mg PEG DAILY [facility] Last Admin: 09/10/17 10:28 Dose: 0.4 mg Vitamin A (Vitamin A & D Oint Ud Foilpak) 1 ea TOP BID [facility] Last Admin: 09/10/17 18:02 Dose: 1 ea - Labs Labs: 09/07/17 07:31 09/07/17 07:31 PT 10.6 SECONDS (9.7-12.2) 11/24/15 14:10 INR 1.0 11/24/15 14:10 APTT 25 SECONDS (21-34) 11/24/15 14:10 - Constitutional Appears: No Acute Distress, Chronically Ill - Head Exam Head Exam: ATRAUMATIC, NORMOCEPHALIC - Eye Exam Eye Exam: Normal appearance - ENT Exam ENT Exam: Mucous Membranes Moist - Neck Exam Additional comments: trach in place - Respiratory Exam Respiratory Exam: absent: Rales, Rhonchi, Wheezes Additional comments: Coarse breath sounds bilaterally - Cardiovascular Exam Cardiovascular Exam: REGULAR RHYTHM, +S1, +S2 - GI/Abdominal Exam GI & Abdominal Exam: Soft, Normal Bowel Sounds. absent: Distended, Tenderness Additional comments: peg tube in place - Extremities Exam Extremities Exam: absent: Pedal Edema Additional comments: SCDs and pressure ulcer boots in place - Neurological Exam Neurological Exam: Altered (anoxic brain injury in 2014) - Skin Skin Exam: Dry, Warm Assessment and Plan - Assessment and Plan (Free Text) Plan: Anoxic encephalopathy s/p cardiac arrest in 05/2015 no acute changes Pt has non spontaneous movements. Continue tube feeds- goal of 60ml/hr, feedings held at night due to fluid overload Respiratory failure Trach in place, continue daily monitoring for secretions. No change in management at this time. Continue with aggressive suctioning multiple times a day per respiratory therapist. Monitor for signs of respiratory distress Thick secretions Duoneb 3ml INH Q6 and Mucomyst 4ml INH Q6H Scopolamine 1 patch TD Q3D [facility] Repeat CXR on 05/28/17: linear increased consolidative changes in the right mid- lung zone and left lung base which may represent atelectasis and/or infiltrate. Questionable trace left pleural effusion. moderate venous congestion. cardiomegaly. degenerative changes in the spine and shoulders 09/09: Secretions suctioned at bedside Leukocytosis secondary to UTI. Resolved 08/10: WBC 8.2 afebrile Meropenem (started 07/22) - per Dr. Armstrong continue for a total of 2 weeks - Discontinued 08/05/17 ID consult: Dr. Armstrong --> help appreciated Urinary retention 07/21: NS stopped because tube feeds restarted 07/20: Urine dark in color, monitor, continue NS at 50 ml per hour 07/07/17: Catheter flushed, patient output approx. 500mL within one hour post flush. 06/27/17: Continue bladder massages to aid in voiding. 06/25/17: Patient voids with movement. Continue bladder massages to aid in voiding. 06/23/17: Patient will need to have daily bladder massage to allow for complete voiding 06/17/17: Nursing communication placed in: straight catherization with bladder scan> 100ml 06/08: urinary retention yesterday, was given 40mg lasix iv and patient was able to urinate through condom baker Take note condom cath not always securely in place so Is and Os are approximate as patient does wet bed Ordered- new condom catheter on 05/22/17 Flomax 0.4mg PEG daily Proscar 5mg PEG daily continue Bethanecol 50mg PEG TID- started after persistent retention and found to be effective. monitor I's and O's - I/O: 780/350 Check bladder scan for residual urine three times weekly Hypokalemia K+ on 08/10: 4.2 Sacral ulcer Healed Cont with offloading/cushioning/turning Continue frequent turning, protective ointment and skin checks. History of coronary artery disease s/p cardiac stents on 06/13/15 Cont ASA 81mg via PEG daily Cont Coreg 3.125mg PEG BID Cont Plavix 75 mg PEG daily Seizures Continue Keppra 500mg PEG BID for seizure prophylaxis Monitor for activity Lower extremity edema Improved SCDs in place Pressure ulcer boots on b/l Continue to monitor Prophylactic measure Pepcid 20 mg PEG BID Lovenox 40mg SC daily SCDs and offloading boots continue to turn and reposition q2hrs Continue to monitor medication administrations and clinical presentation weekly labs. vasoline ointment applied to feet prn to prevent hyperkeratosis Please hold feeding from 10pm-6am, placed into nursing communication Vitamin A & D for lips There is no update at this time. Case DW Dr. Palmira Marinellied PGY-1
[2017-09-11] MEDS: Albuterol-Ipratrop 3 mg / 0.5 (3 ml) UD INH SCH ×2 (07:30→17:04)
[2017-09-11] MEDS: Acetylcysteine 20% Inhal Soln (4ml) INH SCH ×2 (07:30→17:04)
[2017-09-11] MEDS: Saccharomyces Boulardi 250 mg Cap PEG SCH (10:13)
[2017-09-11] MEDS: levETIRAcetam 100 mg/ml (5ml) Oral Syringe PEG SCH ×2 (10:13→17:37)
[2017-09-11] MEDS: Vitamins A & D Oint UD Foilpak TOP SCH ×2 (10:16→18:00)
[2017-09-12] MEDS: Albuterol-Ipratrop 3 mg / 0.5 (3 ml) UD INH SCH ×4 (00:01→23:48)
[2017-09-12] MEDS: Acetylcysteine 20% Inhal Soln (4ml) INH SCH ×4 (00:01→23:48)
--- NOTE | 2017-09-12 06:52 | CP.PCM.PN ---
Subjective - Date & Time of Evaluation Date of Evaluation: 09/12/17 Time of Evaluation: 06:51 - Subjective Subjective: Progress note for Dr. Chavis Patient seen and examined at bedside this morning. Patient had anoxic brain injury in 2015, ROS unattainable. No acute events overnight per nursing. Patient noted to have oral thrush when yawning at bedside. Objective - Vital Signs/Intake and Output Vital Signs (last 24 hours): Temp Pulse Resp BP Pulse Ox 98.1 F 78 20 124/73 99 09/11/17 23:40 09/11/17 23:40 09/11/17 23:40 09/11/17 23:40 09/11/17 23:40 Intake and Output: 09/11/17 09/12/17 18:59 06:59 Intake Total 780 Output Total 480 Balance 300 - Medications Medications: Current Medications Acetylcysteine (Acetylcysteine 20%) 4 ml INH RQ8 [facility] Last Admin: 09/12/17 00:01 Dose: 4 ml Albuterol/Ipratropium (Duoneb 3 Mg/0.5 Mg (3 Ml) Ud) 3 ml INH RQ8 [facility] Last Admin: 09/12/17 00:01 Dose: 3 ml Aspirin (Aspirin Chewable) 81 mg PEG DAILY [facility] Last Admin: 09/11/17 10:15 Dose: 81 mg Bethanechol Chloride (Urecholine) 50 mg PEG TID [facility] Last Admin: 09/11/17 17:41 Dose: 50 mg Carvedilol (Coreg) 3.125 mg PEG BID [facility] Last Admin: 09/11/17 17:37 Dose: 3.125 mg Clopidogrel Bisulfate (Plavix) 75 mg PEG DAILY [facility] Last Admin: 09/11/17 10:12 Dose: 75 mg Famotidine (Pepcid) 20 mg PEG DAILY [facility] Last Admin: 09/11/17 10:16 Dose: 20 mg Finasteride (Proscar) 5 mg PEG DAILY [facility] Last Admin: 09/11/17 10:16 Dose: 5 mg Levetiracetam (Keppra) 500 mg PEG BID [facility] Last Admin: 09/11/17 17:37 Dose: 500 mg Saccharomyces Boulardii (Florastor) 250 mg PEG DAILY [facility] Last Admin: 09/11/17 10:13 Dose: 250 mg Scopolamine (Transderm-Scop) 1 patch TD Q3D [facility] Last Admin: 09/11/17 20:17 Dose: 1 patch Tamsulosin HCl (Flomax) 0.4 mg PEG DAILY [facility] Last Admin: 09/11/17 10:14 Dose: 0.4 mg Vitamin A (Vitamin A & D Oint Ud Foilpak) 1 ea TOP BID [facility] Last Admin: 09/11/17 18:00 Dose: 1 ea - Labs Labs: 09/07/17 07:31 09/07/17 07:31 PT 10.6 SECONDS (9.7-12.2) 11/24/15 14:10 INR 1.0 11/24/15 14:10 APTT 25 SECONDS (21-34) 11/24/15 14:10 - Constitutional Appears: Non-toxic - Head Exam Head Exam: NORMAL INSPECTION - Eye Exam Eye Exam: Normal appearance - ENT Exam ENT Exam: Mucous Membranes Moist Additional comments: oral thrush - Neck Exam Additional comments: trach is in place. some secretions - Respiratory Exam Respiratory Exam: Accessory Muscle Use, Decreased Breath Sounds - Cardiovascular Exam Cardiovascular Exam: REGULAR RHYTHM, +S1, +S2. absent: Bradycardia, Tachycardia - GI/Abdominal Exam GI & Abdominal Exam: Soft. absent: Tenderness - Extremities Exam Extremities Exam: Normal Inspection. absent: Pedal Edema - Neurological Exam Neurological Exam: Awake - Psychiatric Exam Psychiatric exam: Flat Affect - Skin Skin Exam: Dry, Intact, Pallor Assessment and Plan - Assessment and Plan (Free Text) Assessment: Anoxic encephalopathy s/p cardiac arrest in 05/2015 no acute changes Pt has non spontaneous movements. Continue tube feeds- goal of 60ml/hr, feedings held at night due to fluid overload Respiratory failure Trach in place, continue daily monitoring for secretions. No change in management at this time. Continue with aggressive suctioning multiple times a day per respiratory therapist. Monitor for signs of respiratory distress Thick secretions Duoneb 3ml INH Q6 and Mucomyst 4ml INH Q6H Scopolamine 1 patch TD Q3D [facility] Repeat CXR on 05/28/17: linear increased consolidative changes in the right mid- lung zone and left lung base which may represent atelectasis and/or infiltrate. Questionable trace left pleural effusion. moderate venous congestion. cardiomegaly. degenerative changes in the spine and shoulders 09/09: Secretions suctioned at bedside Leukocytosis secondary to UTI. Resolved 08/10: WBC 8.2 afebrile Meropenem (started 07/22) - per Dr. Armstrong continue for a total of 2 weeks - Discontinued 08/05/17 ID consult: Dr. Armstrong --> help appreciated Urinary retention 07/21: NS stopped because tube feeds restarted 07/20: Urine dark in color, monitor, continue NS at 50 ml per hour 07/07/17: Catheter flushed, patient output approx. 500mL within one hour post flush. 06/27/17: Continue bladder massages to aid in voiding. 06/25/17: Patient voids with movement. Continue bladder massages to aid in voiding. 06/23/17: Patient will need to have daily bladder massage to allow for complete voiding 06/17/17: Nursing communication placed in: straight catherization with bladder scan> 100ml 06/08: urinary retention yesterday, was given 40mg lasix iv and patient was able to urinate through condom baker Take note condom cath not always securely in place so Is and Os are approximate as patient does wet bed Ordered- new condom catheter on 05/22/17 Flomax 0.4mg PEG daily Proscar 5mg PEG daily continue Bethanecol 50mg PEG TID- started after persistent retention and found to be effective. monitor I's and O's - I/O: 780/350 Check bladder scan for residual urine three times weekly Hypokalemia K+ on 08/10: 4.2 Sacral ulcer Healed Cont with offloading/cushioning/turning Continue frequent turning, protective ointment and skin checks. History of coronary artery disease s/p cardiac stents on 06/13/15 Cont ASA 81mg via PEG daily Cont Coreg 3.125mg PEG BID Cont Plavix 75 mg PEG daily Seizures Continue Keppra 500mg PEG BID for seizure prophylaxis Monitor for activity Lower extremity edema Improved SCDs in place Pressure ulcer boots on b/l Continue to monitor Prophylactic measure Pepcid 20 mg PEG BID Lovenox 40mg SC daily SCDs and offloading boots continue to turn and reposition q2hrs Continue to monitor medication administrations and clinical presentation weekly labs. vasoline ointment applied to feet prn to prevent hyperkeratosis Please hold feeding from 10pm-6am, placed into nursing communication Vitamin A & D for lips There is no update at this time. discussed with Dr. Palmira Hairston DO PGY1
[2017-09-12] MEDS: levETIRAcetam 100 mg/ml (5ml) Oral Syringe PEG SCH ×2 (10:54→18:33)
[2017-09-12] MEDS: Nystatin 100,000 Units/ml Oral Susp 5 ml UD PO SCH ×4 (10:55→21:42)
[2017-09-12] MEDS: Saccharomyces Boulardi 250 mg Cap PEG SCH (10:55)
--- NOTE | 2017-09-13 07:14 | CP.PCM.PN ---
<Joanna Hairston - Last Filed: 09/13/17 07:36> Subjective - Date & Time of Evaluation Date of Evaluation: 09/13/17 Time of Evaluation: 07:30 - Subjective Subjective: Progress note for Dr. Chavis Patient seen and examined at bedside this morning. No acute events overnight. Patient had anoxic brain injury in 2014, ROS unattainable. Objective - Vital Signs/Intake and Output Vital Signs (last 24 hours): Temp Pulse Resp BP Pulse Ox 98.9 F 93 H 18 118/73 100 09/13/17 06:00 09/13/17 00:01 09/13/17 00:01 09/13/17 00:01 09/13/17 00:01 Intake and Output: 09/13/17 09/13/17 06:59 18:59 Intake Total 1560 Output Total 950 Balance 610 - Medications Medications: Current Medications Acetylcysteine (Acetylcysteine 20%) 4 ml INH RQ8 [facility] Last Admin: 09/12/17 23:48 Dose: 4 ml Albuterol/Ipratropium (Duoneb 3 Mg/0.5 Mg (3 Ml) Ud) 3 ml INH RQ8 [facility] Last Admin: 09/12/17 23:48 Dose: 3 ml Aspirin (Aspirin Chewable) 81 mg PEG DAILY [facility] Last Admin: 09/12/17 10:54 Dose: 81 mg Bethanechol Chloride (Urecholine) 50 mg PEG TID [facility] Last Admin: 09/12/17 18:34 Dose: 50 mg Carvedilol (Coreg) 3.125 mg PEG BID [facility] Last Admin: 09/12/17 18:33 Dose: 3.125 mg Clopidogrel Bisulfate (Plavix) 75 mg PEG DAILY [facility] Last Admin: 09/12/17 10:55 Dose: 75 mg Famotidine (Pepcid) 20 mg PEG DAILY [facility] Last Admin: 09/12/17 10:54 Dose: 20 mg Finasteride (Proscar) 5 mg PEG DAILY [facility] Last Admin: 09/12/17 10:55 Dose: 5 mg Levetiracetam (Keppra) 500 mg PEG BID [facility] Last Admin: 09/12/17 18:33 Dose: 500 mg Nystatin (Nystatin Oral Susp) 5 ml PO QID [facility] Last Admin: 09/12/17 21:42 Dose: 5 ml Saccharomyces Boulardii (Florastor) 250 mg PEG DAILY [facility] Last Admin: 09/12/17 10:55 Dose: 250 mg Scopolamine (Transderm-Scop) 1 patch TD Q3D [facility] Last Admin: 09/11/17 20:17 Dose: 1 patch Tamsulosin HCl (Flomax) 0.4 mg PEG DAILY [facility] Last Admin: 09/12/17 10:54 Dose: 0.4 mg - Labs Labs: 09/07/17 07:31 09/07/17 07:31 PT 10.6 SECONDS (9.7-12.2) 11/24/15 14:10 INR 1.0 11/24/15 14:10 APTT 25 SECONDS (21-34) 11/24/15 14:10 - Constitutional Appears: Cachectic - Head Exam Head Exam: NORMAL INSPECTION - Eye Exam Eye Exam: Normal appearance - ENT Exam ENT Exam: Mucous Membranes Moist - Respiratory Exam Respiratory Exam: NORMAL BREATHING PATTERN. absent: Accessory Muscle Use, Respiratory Distress Additional comments: trach collar in place - Cardiovascular Exam Cardiovascular Exam: REGULAR RHYTHM, +S1, +S2 - GI/Abdominal Exam GI & Abdominal Exam: Soft. absent: Tenderness - Extremities Exam Extremities Exam: absent: Pedal Edema - Neurological Exam Neurological Exam: Awake - Psychiatric Exam Psychiatric exam: Flat Affect - Skin Skin Exam: Dry, Intact Assessment and Plan - Assessment and Plan (Free Text) Assessment: Anoxic encephalopathy s/p cardiac arrest in 05/2015 no acute changes Pt has non spontaneous movements. Continue tube feeds- goal of 60ml/hr, feedings held at night due to fluid overload Respiratory failure Trach in place, continue daily monitoring for secretions. No change in management at this time. Continue with aggressive suctioning multiple times a day per respiratory therapist. Monitor for signs of respiratory distress Thick secretions Duoneb 3ml INH Q6 and Mucomyst 4ml INH Q6H Scopolamine 1 patch TD Q3D [facility] Repeat CXR on 05/28/17: linear increased consolidative changes in the right mid- lung zone and left lung base which may represent atelectasis and/or infiltrate. Questionable trace left pleural effusion. moderate venous congestion. cardiomegaly. degenerative changes in the spine and shoulders 09/09: Secretions suctioned at bedside Leukocytosis secondary to UTI. Resolved 08/10: WBC 8.2 afebrile Meropenem (started 07/22) - per Dr. Armstrong continue for a total of 2 weeks - Discontinued 08/05/17 ID consult: Dr. Armstrong --> help appreciated Urinary retention 07/21: NS stopped because tube feeds restarted 07/20: Urine dark in color, monitor, continue NS at 50 ml per hour 07/07/17: Catheter flushed, patient output approx. 500mL within one hour post flush. 06/27/17: Continue bladder massages to aid in voiding. 06/25/17: Patient voids with movement. Continue bladder massages to aid in voiding. 06/23/17: Patient will need to have daily bladder massage to allow for complete voiding 06/17/17: Nursing communication placed in: straight catherization with bladder scan> 100ml 06/08: urinary retention yesterday, was given 40mg lasix iv and patient was able to urinate through condom baker Take note condom cath not always securely in place so Is and Os are approximate as patient does wet bed Ordered- new condom catheter on 05/22/17 Flomax 0.4mg PEG daily Proscar 5mg PEG daily continue Bethanecol 50mg PEG TID- started after persistent retention and found to be effective. monitor I's and O's - I/O: 780/350 Check bladder scan for residual urine three times weekly Hypokalemia K+ on 08/10: 4.2 Sacral ulcer Healed Cont with offloading/cushioning/turning Continue frequent turning, protective ointment and skin checks. History of coronary artery disease s/p cardiac stents on 06/13/15 Cont ASA 81mg via PEG daily Cont Coreg 3.125mg PEG BID Cont Plavix 75 mg PEG daily Seizures Continue Keppra 500mg PEG BID for seizure prophylaxis Monitor for activity Lower extremity edema Improved SCDs in place Pressure ulcer boots on b/l Continue to monitor Prophylactic measure Pepcid 20 mg PEG BID Lovenox 40mg SC daily SCDs and offloading boots continue to turn and reposition q2hrs Continue to monitor medication administrations and clinical presentation weekly labs. vasoline ointment applied to feet prn to prevent hyperkeratosis Please hold feeding from 10pm-6am, placed into nursing communication Vitamin A & D for lips There is no update at this time. discussed with Dr. Palmira Hairston DO PGY1 <Amandeep Chavis - Last Filed: 09/13/17 11:35> Objective - Vital Signs/Intake and Output Vital Signs (last 24 hours): Temp Pulse Resp BP Pulse Ox 97.5 F L 76 20 134/63 98 09/13/17 07:51 09/13/17 07:51 09/13/17 07:51 09/13/17 07:51 09/13/17 07:51 Intake and Output: 09/13/17 09/13/17 06:59 18:59 Intake Total 1560 Output Total 950 Balance 610 - Medications Medications: Current Medications Acetylcysteine (Acetylcysteine 20%) 4 ml INH RQ8 [facility] Last Admin: 09/13/17 07:39 Dose: 4 ml Albuterol/Ipratropium (Duoneb 3 Mg/0.5 Mg (3 Ml) Ud) 3 ml INH RQ8 [facility] Last Admin: 09/13/17 07:39 Dose: 3 ml Aspirin (Aspirin Chewable) 81 mg PEG DAILY [facility] Last Admin: 09/13/17 11:30 Dose: 81 mg Bethanechol Chloride (Urecholine) 50 mg PEG TID [facility] Last Admin: 09/13/17 11:30 Dose: 50 mg Carvedilol (Coreg) 3.125 mg PEG BID [facility] Last Admin: 09/13/17 11:30 Dose: 3.125 mg Clopidogrel Bisulfate (Plavix) 75 mg PEG DAILY [facility] Last Admin: 09/13/17 11:30 Dose: 75 mg Enoxaparin Sodium (Lovenox) 30 mg SC DAILY [facility] Famotidine (Pepcid) 20 mg PEG DAILY [facility] Last Admin: 09/13/17 11:34 Dose: 20 mg Finasteride (Proscar) 5 mg PEG DAILY [facility] Last Admin: 09/13/17 11:31 Dose: 5 mg Levetiracetam (Keppra) 500 mg PEG BID [facility] Last Admin: 09/13/17 11:31 Dose: 500 mg Nystatin (Nystatin Oral Susp) 5 ml PO QID [facility] Last Admin: 09/13/17 11:29 Dose: 5 ml Saccharomyces Boulardii (Florastor) 250 mg PEG DAILY [facility] Last Admin: 09/13/17 11:30 Dose: 250 mg Scopolamine (Transderm-Scop) 1 patch TD Q3D [facility] Last Admin: 09/11/17 20:17 Dose: 1 patch Tamsulosin HCl (Flomax) 0.4 mg PEG DAILY [facility] Last Admin: 09/13/17 11:29 Dose: 0.4 mg - Labs Labs: 09/07/17 07:31 09/07/17 07:31 PT 10.6 SECONDS (9.7-12.2) 11/24/15 14:10 INR 1.0 11/24/15 14:10 APTT 25 SECONDS (21-34) 11/24/15 14:10 Assessment and Plan (1) Prophylactic measure Status: Acute (2) Anoxic encephalopathy Status: Chronic (3) STEMI (ST elevation myocardial infarction) Status: Acute (4) Cardiac arrest Status: Acute (5) Seizures Status: Acute (6) Respiratory failure Status: Chronic Attending/Attestation - Attestation I have personally seen and examined this patient.: Yes I have fully participated in the care of the patient.: Yes I have reviewed all pertinent clinical information, including history, physical exam and plan: Yes Notes (Text): 09/13/17 11:34 Medical attending: Patient was seen and reviewed above note by the resident Situation is not changed from before Amandeep Chavis
[2017-09-13] MEDS: Acetylcysteine 20% Inhal Soln (4ml) INH SCH ×2 (07:39→16:16)
[2017-09-13] MEDS: Albuterol-Ipratrop 3 mg / 0.5 (3 ml) UD INH SCH ×2 (07:39→16:16)
[2017-09-13] MEDS: Nystatin 100,000 Units/ml Oral Susp 5 ml UD PO SCH ×4 (11:29→21:35)
[2017-09-13] MEDS: Saccharomyces Boulardi 250 mg Cap PEG SCH (11:30)
[2017-09-13] MEDS: levETIRAcetam 100 mg/ml (5ml) Oral Syringe PEG SCH ×2 (11:31→17:37)
[2017-09-14] MEDS: Acetylcysteine 20% Inhal Soln (4ml) INH SCH ×3 (00:09→16:32)
[2017-09-14] MEDS: Albuterol-Ipratrop 3 mg / 0.5 (3 ml) UD INH SCH ×3 (00:09→16:32)
[2017-09-14 08:45] LABS: BASO % 0.4 % (0.0-2.0); EOS # 0.4 K/uL (0.0-0.7); EOS % 4.1 % (0.0-4.0); HEMOGLOBIN 10.2 g/dL (12.0-18.0); LYMPH # 2.1 K/uL (1.0-4.3); LYMPH % 19.4 % (20.0-40.0); MEAN CELL VOLUME 87.6 fL (80.0-94.0); MEAN CORPUSCULAR HEMOGLOBIN 28.8 pg (27.0-31.0); MEAN CORPUSCULAR HGB CONC 32.8 g/dL (33.0-37.0); MEAN PLATELET VOLUME 8.5 fL (7.2-11.7); MONO # 0.8 K/uL (0.0-0.8); MONO % 7.7 % (0.0-10.0); NEUT # 7.3 K/uL (1.8-7.0); NEUT % 68.4 % (50.0-75.0); RBC 3.56 Mil/uL (4.40-5.90); RED CELL DISTRIBUTION WIDTH 15.9 % (11.5-14.5); WHITE BLOOD COUNT 10.6 K/uL (4.8-10.8)
[2017-09-14 08:52] LABS: ALBUMIN 3.5 g/dL (3.5-5.0)
[2017-09-14 08:55] LABS: ALB/GLOB RATIO 0.8 (1.0-2.1); ALT/SGPT 39 U/L (21-72); AST/SGOT 33 U/L (17-59); BLOOD UREA NITROGEN 14 mg/dL (9-20); GFR NON-AFRICAN AMERICAN > 60
[2017-09-14 08:56] LABS: CALCIUM 8.5 mg/dl (8.6-10.4)
[2017-09-14] MEDS: Saccharomyces Boulardi 250 mg Cap PEG SCH (09:07)
[2017-09-14] MEDS: Nystatin 100,000 Units/ml Oral Susp 5 ml UD PO SCH ×4 (09:09→21:33)
[2017-09-14] MEDS: levETIRAcetam 100 mg/ml (5ml) Oral Syringe PEG SCH ×2 (09:10→17:28)
--- NOTE | 2017-09-14 09:46 | CP.PCM.PN ---
<Ben Martell R - Last Filed: 09/15/17 07:45> Subjective - Date & Time of Evaluation Date of Evaluation: 09/14/17 Time of Evaluation: 09:45 - Subjective Subjective: PGY-1 Note for medicine, Dr Moore. Patient seen and examined at bedside this morning. No acute events overnight. Patient had anoxic brain injury in 2014, ROS unattainable. Objective - Vital Signs/Intake and Output Vital Signs (last 24 hours): Temp Pulse Resp BP Pulse Ox 98.7 F 86 20 113/78 96 09/14/17 08:45 09/14/17 08:45 09/14/17 08:45 09/14/17 08:45 09/14/17 08:45 Intake and Output: 09/14/17 09/14/17 06:59 18:59 Intake Total 1560 Output Total 700 Balance 860 - Medications Medications: Current Medications Acetylcysteine (Acetylcysteine 20%) 4 ml INH RQ8 [facility] Last Admin: 09/14/17 08:20 Dose: 4 ml Albuterol/Ipratropium (Duoneb 3 Mg/0.5 Mg (3 Ml) Ud) 3 ml INH RQ8 [facility] Last Admin: 09/14/17 08:20 Dose: 3 ml Aspirin (Aspirin Chewable) 81 mg PEG DAILY [facility] Last Admin: 09/14/17 09:07 Dose: 81 mg Bethanechol Chloride (Urecholine) 50 mg PEG TID [facility] Last Admin: 09/14/17 09:12 Dose: 50 mg Carvedilol (Coreg) 3.125 mg PEG BID [facility] Last Admin: 09/14/17 09:12 Dose: 3.125 mg Clopidogrel Bisulfate (Plavix) 75 mg PEG DAILY [facility] Last Admin: 09/14/17 09:08 Dose: 75 mg Enoxaparin Sodium (Lovenox) 30 mg SC DAILY [facility] Famotidine (Pepcid) 20 mg PEG DAILY [facility] Last Admin: 09/14/17 09:08 Dose: 20 mg Finasteride (Proscar) 5 mg PEG DAILY [facility] Last Admin: 09/14/17 09:11 Dose: 5 mg Levetiracetam (Keppra) 500 mg PEG BID [facility] Last Admin: 09/14/17 09:10 Dose: 500 mg Nystatin (Nystatin Oral Susp) 5 ml PO QID [facility] Last Admin: 09/14/17 09:09 Dose: 5 ml Saccharomyces Boulardii (Florastor) 250 mg PEG DAILY [facility] Last Admin: 09/14/17 09:07 Dose: 250 mg Scopolamine (Transderm-Scop) 1 patch TD Q3D [facility] Last Admin: 09/11/17 20:17 Dose: 1 patch Tamsulosin HCl (Flomax) 0.4 mg PEG DAILY [facility] Last Admin: 09/14/17 09:08 Dose: 0.4 mg - Labs Labs: 09/14/17 08:20 09/14/17 08:20 PT 10.6 SECONDS (9.7-12.2) 11/24/15 14:10 INR 1.0 11/24/15 14:10 APTT 25 SECONDS (21-34) 11/24/15 14:10 - Constitutional Appears: Cachectic - Head Exam Head Exam: ATRAUMATIC, NORMAL INSPECTION - Eye Exam Eye Exam: Normal appearance. absent: EOMI - ENT Exam ENT Exam: Mucous Membranes Moist - Respiratory Exam Respiratory Exam: NORMAL BREATHING PATTERN. absent: Accessory Muscle Use, Respiratory Distress Additional comments: trach collar in place - Cardiovascular Exam Cardiovascular Exam: REGULAR RHYTHM, +S1, +S2. absent: Tachycardia, Murmur - GI/Abdominal Exam GI & Abdominal Exam: Soft, Normal Bowel Sounds - Exam Additional comments: baker condom in place - Extremities Exam Extremities Exam: Normal Inspection. absent: Pedal Edema - Neurological Exam Neurological Exam: Altered - Skin Skin Exam: Dry, Intact, Normal Color, Warm Assessment and Plan - Assessment and Plan (Free Text) Assessment: Anoxic encephalopathy s/p cardiac arrest in 05/2015 no acute changes Pt has non spontaneous movements. Continue tube feeds- goal of 60ml/hr, feedings held at night due to fluid overload Respiratory failure Trach in place, continue daily monitoring for secretions. No change in management at this time. Continue with aggressive suctioning multiple times a day per respiratory therapist. Monitor for signs of respiratory distress Thick secretions Duoneb 3ml INH Q6 and Mucomyst 4ml INH Q6H Sc[facility] 1 patch TD Q3D [facility] Repeat CXR on 05/28/17: linear increased consolidative changes in the right mid- lung zone and left lung base which may represent atelectasis and/or infiltrate. Questionable trace left pleural effusion. moderate venous congestion. cardiomegaly. degenerative changes in the spine and shoulders 09/09: Secretions suctioned at bedside Leukocytosis secondary to UTI. Resolved 08/10: WBC 8.2 afebrile Meropenem (started 07/22) - per Dr. Armstrong continue for a total of 2 weeks - Discontinued 08/05/17 ID consult: Dr. Armstrong --> help appreciated Urinary retention 07/21: NS stopped because tube feeds restarted 07/20: Urine dark in color, monitor, continue NS at 50 ml per hour 07/07/17: Catheter flushed, patient output approx. 500mL within one hour post flush. 06/27/17: Continue bladder massages to aid in voiding. 06/25/17: Patient voids with movement. Continue bladder massages to aid in voiding. 06/23/17: Patient will need to have daily bladder massage to allow for complete voiding 06/17/17: Nursing communication placed in: straight catherization with bladder scan> 100ml 06/08: urinary retention yesterday, was given 40mg lasix iv and patient was able to urinate through condom baker Take note condom cath not always securely in place so Is and Os are approximate as patient does wet bed Ordered- new condom catheter on 05/22/17 Flomax 0.4mg PEG daily Proscar 5mg PEG daily continue Bethanecol 50mg PEG TID- started after persistent retention and found to be effective. monitor I's and O's - I/O: 780/350 Check bladder scan for residual urine three times weekly Hypokalemia K+ on 08/10: 4.2 Sacral ulcer Healed Cont with offloading/cushioning/turning Continue frequent turning, protective ointment and skin checks. History of coronary artery disease s/p cardiac stents on 06/13/15 Cont ASA 81mg via PEG daily Cont Coreg 3.125mg PEG BID Cont Plavix 75 mg PEG daily Seizures Continue Keppra 500mg PEG BID for seizure prophylaxis Monitor for activity Lower extremity edema Improved SCDs in place Pressure ulcer boots on /l Continue to monitor Prophylactic measure Pepcid 20 mg PEG BID Lovenox 40mg SC daily SCDs and offloading boots continue to turn and reposition q2hrs Continue to monitor medication administrations and clinical presentation weekly labs. vasoline ointment applied to feet prn to prevent hyperkeratosis Please hold feeding from 10pm-6am, placed into nursing communication Vitamin A & D for lips There is no update at this time. Weekly labs were drawn and reviewed. <Jeison Moore - Last Filed: 09/15/17 16:01> Objective - Vital Signs/Intake and Output Vital Signs (last 24 hours): Temp Pulse Resp BP Pulse Ox 98.4 F 87 21 105/74 96 09/15/17 07:29 09/15/17 07:29 09/15/17 07:29 09/15/17 07:29 09/15/17 07:29 Intake and Output: 09/15/17 09/15/17 06:59 18:59 Intake Total 1560 Output Total 600 Balance 960 - Medications Medications: Current Medications Acetylcysteine (Acetylcysteine 20%) 4 ml INH RQ8 [facility] Last Admin: 09/15/17 15:47 Dose: 4 ml Albuterol/Ipratropium (Duoneb 3 Mg/0.5 Mg (3 Ml) Ud) 3 ml INH RQ8 [facility] Last Admin: 09/15/17 15:47 Dose: 3 ml Aspirin (Aspirin Chewable) 81 mg PEG DAILY [facility] Last Admin: 09/15/17 09:53 Dose: 81 mg Carvedilol (Coreg) 3.125 mg PEG BID [facility] Last Admin: 09/15/17 09:54 Dose: 3.125 mg Clopidogrel Bisulfate (Plavix) 75 mg PEG DAILY [facility] Last Admin: 09/15/17 10:36 Dose: 75 mg Enoxaparin Sodium (Lovenox) 30 mg SC DAILY [facility] Last Admin: 09/15/17 09:59 Dose: 30 mg Famotidine (Pepcid) 20 mg PEG DAILY [facility] Last Admin: 09/15/17 10:35 Dose: 20 mg Finasteride (Proscar) 5 mg PEG DAILY [facility] Last Admin: 09/15/17 10:35 Dose: 5 mg Levetiracetam (Keppra) 500 mg PEG BID [facility] Last Admin: 09/15/17 10:35 Dose: 500 mg Nystatin (Nystatin Oral Susp) 5 ml PO QID [facility] Last Admin: 09/15/17 14:50 Dose: 5 ml Saccharomyces Boulardii (Florastor) 250 mg PEG DAILY [facility] Last Admin: 09/15/17 09:57 Dose: 250 mg Tamsulosin HCl (Flomax) 0.4 mg PEG DAILY [facility] Last Admin: 09/15/17 09:56 Dose: 0.4 mg - Labs Labs: 09/14/17 10:53 09/14/17 08:20 PT 10.6 SECONDS (9.7-12.2) 11/24/15 14:10 INR 1.0 11/24/15 14:10 APTT 25 SECONDS (21-34) 11/24/15 14:10 Attending/Attestation - Attestation I have personally seen and examined this patient.: Yes I have fully participated in the care of the patient.: Yes I have reviewed all pertinent clinical information, including history, physical exam and plan: Yes Notes (Text): 09/15/17 15:52 Patient was seen and examined with resident.No changes.I agree the assessment and documentation of the resident 09/15/17 16:01
[2017-09-14 11:06] LABS: BASO % 0.4 % (0.0-2.0); EOS # 0.4 K/uL (0.0-0.7); EOS % 3.9 % (0.0-4.0); HEMOGLOBIN 10.1 g/dL (12.0-18.0); LYMPH # 2.3 K/uL (1.0-4.3); LYMPH % 21.1 % (20.0-40.0); MEAN CELL VOLUME 88.2 fL (80.0-94.0); MEAN CORPUSCULAR HEMOGLOBIN 29.7 pg (27.0-31.0); MEAN CORPUSCULAR HGB CONC 33.7 g/dL (33.0-37.0); MEAN PLATELET VOLUME 8.7 fL (7.2-11.7); MONO # 0.9 K/uL (0.0-0.8); MONO % 8.6 % (0.0-10.0); NEUT # 7.2 K/uL (1.8-7.0); RBC 3.42 Mil/uL (4.40-5.90); RED CELL DISTRIBUTION WIDTH 15.7 % (11.5-14.5); WHITE BLOOD COUNT 10.9 K/uL (4.8-10.8)
[2017-09-14] MEDS: Enoxaparin 30 mg Syringe SC SCH (13:11)
[2017-09-15] MEDS: Acetylcysteine 20% Inhal Soln (4ml) INH SCH ×3 (00:19→15:47)
[2017-09-15] MEDS: Albuterol-Ipratrop 3 mg / 0.5 (3 ml) UD INH SCH ×3 (00:19→15:47)
--- NOTE | 2017-09-15 07:51 | CP.PCM.PN ---
<Ben Martell R - Last Filed: 09/15/17 07:49> Subjective - Date & Time of Evaluation Date of Evaluation: 09/15/17 Time of Evaluation: 07:49 - Subjective Subjective: PGY-1 Note for medicine, Dr Moore. Patient seen and examined at bedside this morning. No acute events overnight. Patient had anoxic brain injury in 2014, ROS unattainable. Objective - Vital Signs/Intake and Output Vital Signs (last 24 hours): Temp Pulse Resp BP Pulse Ox 98.4 F 87 21 105/74 96 09/15/17 07:29 09/15/17 07:29 09/15/17 07:29 09/15/17 07:29 09/15/17 07:29 Intake and Output: 09/15/17 09/15/17 06:59 18:59 Intake Total 1560 Output Total 600 Balance 960 - Medications Medications: Current Medications Acetylcysteine (Acetylcysteine 20%) 4 ml INH RQ8 [facility] Last Admin: 09/15/17 00:19 Dose: 4 ml Albuterol/Ipratropium (Duoneb 3 Mg/0.5 Mg (3 Ml) Ud) 3 ml INH RQ8 [facility] Last Admin: 09/15/17 00:19 Dose: 3 ml Aspirin (Aspirin Chewable) 81 mg PEG DAILY [facility] Last Admin: 09/14/17 09:07 Dose: 81 mg Bethanechol Chloride (Urecholine) 50 mg PEG TID [facility] Last Admin: 09/14/17 17:28 Dose: 50 mg Carvedilol (Coreg) 3.125 mg PEG BID [facility] Last Admin: 09/14/17 17:26 Dose: 3.125 mg Clopidogrel Bisulfate (Plavix) 75 mg PEG DAILY [facility] Last Admin: 09/14/17 09:08 Dose: 75 mg Enoxaparin Sodium (Lovenox) 30 mg SC DAILY [facility] Last Admin: 09/14/17 13:11 Dose: 30 mg Famotidine (Pepcid) 20 mg PEG DAILY [facility] Last Admin: 09/14/17 09:08 Dose: 20 mg Finasteride (Proscar) 5 mg PEG DAILY [facility] Last Admin: 09/14/17 09:11 Dose: 5 mg Levetiracetam (Keppra) 500 mg PEG BID [facility] Last Admin: 09/14/17 17:28 Dose: 500 mg Nystatin (Nystatin Oral Susp) 5 ml PO QID [facility] Last Admin: 09/14/17 21:33 Dose: 5 ml Saccharomyces Boulardii (Florastor) 250 mg PEG DAILY [facility] Last Admin: 09/14/17 09:07 Dose: 250 mg Scopolamine (Transderm-Scop) 1 patch TD Q3D [facility] Last Admin: 09/14/17 20:40 Dose: 1 patch Tamsulosin HCl (Flomax) 0.4 mg PEG DAILY [facility] Last Admin: 09/14/17 09:08 Dose: 0.4 mg - Labs Labs: 09/14/17 10:53 09/14/17 08:20 PT 10.6 SECONDS (9.7-12.2) 11/24/15 14:10 INR 1.0 11/24/15 14:10 APTT 25 SECONDS (21-34) 11/24/15 14:10 - Constitutional Appears: Cachectic - Head Exam Head Exam: ATRAUMATIC, NORMAL INSPECTION - Eye Exam Eye Exam: absent: EOMI - ENT Exam ENT Exam: Mucous Membranes Moist - Neck Exam Neck Exam: Normal Inspection - Respiratory Exam Respiratory Exam: NORMAL BREATHING PATTERN. absent: Clear to Ausculation Bilateral Additional comments: trach collar in place - Cardiovascular Exam Cardiovascular Exam: REGULAR RHYTHM. absent: Bradycardia, Tachycardia - GI/Abdominal Exam GI & Abdominal Exam: Soft - Exam Additional comments: baker condom in place - Extremities Exam Extremities Exam: Normal Inspection - Neurological Exam Neurological Exam: Altered - Skin Skin Exam: Dry, Intact, Normal Color, Warm Assessment and Plan - Assessment and Plan (Free Text) Assessment: Anoxic encephalopathy s/p cardiac arrest in 05/2015 no acute changes Pt has non spontaneous movements. Continue tube feeds- goal of 60ml/hr, feedings held at night due to fluid overload Respiratory failure Trach in place, continue daily monitoring for secretions. No change in management at this time. Continue with aggressive suctioning multiple times a day per respiratory therapist. Monitor for signs of respiratory distress Thick secretions Duoneb 3ml INH Q6 and Mucomyst 4ml INH Q6H Scopolamine 1 patch TD Q3D [facility] Repeat CXR on 05/28/17: linear increased consolidative changes in the right mid- lung zone and left lung base which may represent atelectasis and/or infiltrate. Questionable trace left pleural effusion. moderate venous congestion. cardiomegaly. degenerative changes in the spine and shoulders 09/09: Secretions suctioned at bedside Leukocytosis secondary to UTI. Resolved 08/10: WBC 8.2 afebrile Meropenem (started 07/22) - per Dr. Armstrong continue for a total of 2 weeks - Discontinued 08/05/17 ID consult: Dr. Armstrong --> help appreciated Urinary retention 07/21: NS stopped because tube feeds restarted 07/20: Urine dark in color, monitor, continue NS at 50 ml per hour 07/07/17: Catheter flushed, patient output approx. 500mL within one hour post flush. 06/27/17: Continue bladder massages to aid in voiding. 06/25/17: Patient voids with movement. Continue bladder massages to aid in voiding. 06/23/17: Patient will need to have daily bladder massage to allow for complete voiding 06/17/17: Nursing communication placed in: straight catherization with bladder scan> 100ml 06/08: urinary retention yesterday, was given 40mg lasix iv and patient was able to urinate through condom baker Take note condom cath not always securely in place so Is and Os are approximate as patient does wet bed Ordered- new condom catheter on 05/22/17 Flomax 0.4mg PEG daily Proscar 5mg PEG daily continue Bethanecol 50mg PEG TID- started after persistent retention and found to be effective. monitor I's and O's - I/O: 780/350 Check bladder scan for residual urine three times weekly Hypokalemia K+ on 08/10: 4.2 Sacral ulcer Healed Cont with offloading/cushioning/turning Continue frequent turning, protective ointment and skin checks. History of coronary artery disease s/p cardiac stents on 06/13/15 Cont ASA 81mg via PEG daily Cont Coreg 3.125mg PEG BID Cont Plavix 75 mg PEG daily Seizures Continue Keppra 500mg PEG BID for seizure prophylaxis Monitor for activity Lower extremity edema Improved SCDs in place Pressure ulcer boots on b/l Continue to monitor Prophylactic measure Pepcid 20 mg PEG BID Lovenox 40mg SC daily SCDs and offloading boots continue to turn and reposition q2hrs Continue to monitor medication administrations and clinical presentation weekly labs. vasoline ointment applied to feet prn to prevent hyperkeratosis Please hold feeding from 10pm-6am, placed into nursing communication Vitamin A & D for lips There is no update at this time. <Jeison Moore - Last Filed: 09/15/17 16:03> Objective - Vital Signs/Intake and Output Vital Signs (last 24 hours): Temp Pulse Resp BP Pulse Ox 98.4 F 87 21 105/74 96 09/15/17 07:29 09/15/17 07:29 09/15/17 07:29 09/15/17 07:29 09/15/17 07:29 Intake and Output: 09/15/17 09/15/17 06:59 18:59 Intake Total 1560 Output Total 600 Balance 960 - Medications Medications: Current Medications Acetylcysteine (Acetylcysteine 20%) 4 ml INH RQ8 [facility] Last Admin: 09/15/17 15:47 Dose: 4 ml Albuterol/Ipratropium (Duoneb 3 Mg/0.5 Mg (3 Ml) Ud) 3 ml INH RQ8 [facility] Last Admin: 09/15/17 15:47 Dose: 3 ml Aspirin (Aspirin Chewable) 81 mg PEG DAILY [facility] Last Admin: 09/15/17 09:53 Dose: 81 mg Carvedilol (Coreg) 3.125 mg PEG BID [facility] Last Admin: 09/15/17 09:54 Dose: 3.125 mg Clopidogrel Bisulfate (Plavix) 75 mg PEG DAILY [facility] Last Admin: 09/15/17 10:36 Dose: 75 mg Enoxaparin Sodium (Lovenox) 30 mg SC DAILY [facility] Last Admin: 09/15/17 09:59 Dose: 30 mg Famotidine (Pepcid) 20 mg PEG DAILY [facility] Last Admin: 09/15/17 10:35 Dose: 20 mg Finasteride (Proscar) 5 mg PEG DAILY [facility] Last Admin: 09/15/17 10:35 Dose: 5 mg Levetiracetam (Keppra) 500 mg PEG BID [facility] Last Admin: 09/15/17 10:35 Dose: 500 mg Nystatin (Nystatin Oral Susp) 5 ml PO QID [facility] Last Admin: 09/15/17 14:50 Dose: 5 ml Saccharomyces Boulardii (Florastor) 250 mg PEG DAILY [facility] Last Admin: 09/15/17 09:57 Dose: 250 mg Tamsulosin HCl (Flomax) 0.4 mg PEG DAILY [facility] Last Admin: 09/15/17 09:56 Dose: 0.4 mg - Labs Labs: 09/14/17 10:53 09/14/17 08:20 PT 10.6 SECONDS (9.7-12.2) 11/24/15 14:10 INR 1.0 11/24/15 14:10 APTT 25 SECONDS (21-34) 11/24/15 14:10 Attending/Attestation - Attestation I have personally seen and examined this patient.: Yes I have fully participated in the care of the patient.: Yes I have reviewed all pertinent clinical information, including history, physical exam and plan: Yes Notes (Text): 09/15/17 16:02 Patient was seen and examined.No changes.I agree with the residents documentation and assessment
[2017-09-15] MEDS: Saccharomyces Boulardi 250 mg Cap PEG SCH (09:57)
[2017-09-15] MEDS: Enoxaparin 30 mg Syringe SC SCH (09:59)
[2017-09-15] MEDS: Nystatin 100,000 Units/ml Oral Susp 5 ml UD PO SCH ×4 (09:59→21:48)
[2017-09-15] MEDS: levETIRAcetam 100 mg/ml (5ml) Oral Syringe PEG SCH ×2 (10:35→17:37)
[2017-09-16] MEDS: Acetylcysteine 20% Inhal Soln (4ml) INH SCH ×3 (01:00→15:34)
[2017-09-16] MEDS: Albuterol-Ipratrop 3 mg / 0.5 (3 ml) UD INH SCH ×3 (01:00→15:34)
--- NOTE | 2017-09-16 07:39 | CP.PCM.PN ---
Subjective - Date & Time of Evaluation Date of Evaluation: 09/16/17 Time of Evaluation: 07:37 - Subjective Subjective: PGY-1 Note for medicine, Dr Moore. Patient seen and examined at bedside this morning. No acute events overnight. Patient had anoxic brain injury in 2014, ROS unattainable. Objective - Vital Signs/Intake and Output Vital Signs (last 24 hours): Temp Pulse Resp BP Pulse Ox 98.7 F 76 20 108/75 98 09/16/17 06:00 09/15/17 23:40 09/15/17 23:40 09/15/17 23:40 09/15/17 23:40 Intake and Output: 09/16/17 09/16/17 06:59 18:59 Intake Total 1560 Output Total 450 Balance 1110 - Medications Medications: Current Medications Acetylcysteine (Acetylcysteine 20%) 4 ml INH RQ8 [facility] Last Admin: 09/16/17 01:00 Dose: 4 ml Albuterol/Ipratropium (Duoneb 3 Mg/0.5 Mg (3 Ml) Ud) 3 ml INH RQ8 [facility] Last Admin: 09/16/17 01:00 Dose: 3 ml Aspirin (Aspirin Chewable) 81 mg PEG DAILY [facility] Last Admin: 09/15/17 09:53 Dose: 81 mg Carvedilol (Coreg) 3.125 mg PEG BID [facility] Last Admin: 09/15/17 17:37 Dose: 3.125 mg Clopidogrel Bisulfate (Plavix) 75 mg PEG DAILY [facility] Last Admin: 09/15/17 10:36 Dose: 75 mg Enoxaparin Sodium (Lovenox) 30 mg SC DAILY [facility] Last Admin: 09/15/17 09:59 Dose: 30 mg Famotidine (Pepcid) 20 mg PEG DAILY [facility] Last Admin: 09/15/17 10:35 Dose: 20 mg Finasteride (Proscar) 5 mg PEG DAILY [facility] Last Admin: 09/15/17 10:35 Dose: 5 mg Levetiracetam (Keppra) 500 mg PEG BID [facility] Last Admin: 09/15/17 17:37 Dose: 500 mg Nystatin (Nystatin Oral Susp) 5 ml PO QID [facility] Last Admin: 09/15/17 21:48 Dose: 5 ml Saccharomyces Boulardii (Florastor) 250 mg PEG DAILY [facility] Last Admin: 09/15/17 09:57 Dose: 250 mg Scopolamine (Transderm-Scop) 1 patch TD Q3D [facility] Last Admin: 09/15/17 18:30 Dose: Not Given Tamsulosin HCl (Flomax) 0.4 mg PEG DAILY [facility] Last Admin: 09/15/17 09:56 Dose: 0.4 mg - Labs Labs: 09/14/17 10:53 09/14/17 08:20 PT 10.6 SECONDS (9.7-12.2) 11/24/15 14:10 INR 1.0 11/24/15 14:10 APTT 25 SECONDS (21-34) 11/24/15 14:10 - Additional Findings Additional findings: - Constitutional Appears: Cachectic - Head Exam Head Exam: ATRAUMATIC, NORMAL INSPECTION - Eye Exam Eye Exam: absent: EOMI - ENT Exam ENT Exam: Mucous Membranes Moist - Neck Exam Neck Exam: Normal Inspection - Respiratory Exam Respiratory Exam: NORMAL BREATHING PATTERN. absent: Clear to Ausculation Bilateral Additional comments: trach collar in place - Cardiovascular Exam Cardiovascular Exam: REGULAR RHYTHM. absent: Bradycardia, Tachycardia - GI/Abdominal Exam GI & Abdominal Exam: Soft - Exam Additional comments: baker condom in place - Extremities Exam Extremities Exam: Normal Inspection - Neurological Exam Neurological Exam: Altered - Skin Skin Exam: Dry, Intact, Normal Color, Warm Assessment and Plan - Assessment and Plan (Free Text) Assessment: Anoxic encephalopathy s/p cardiac arrest in 05/2015 no acute changes Pt has non spontaneous movements. Continue tube feeds- goal of 60ml/hr, feedings held at night due to fluid overload Respiratory failure Trach in place, continue daily monitoring for secretions. No change in management at this time. Continue with aggressive suctioning multiple times a day per respiratory therapist. Monitor for signs of respiratory distress Thick secretions Duoneb 3ml INH Q6 and Mucomyst 4ml INH Q6H Scopolamine 1 patch TD Q3D [facility] Repeat CXR on 05/28/17: linear increased consolidative changes in the right mid- lung zone and left lung base which may represent atelectasis and/or infiltrate. Questionable trace left pleural effusion. moderate venous congestion. cardiomegaly. degenerative changes in the spine and shoulders 09/09: Secretions suctioned at bedside Leukocytosis secondary to UTI. Resolved 08/10: WBC 8.2 afebrile Meropenem (started 07/22) - per Dr. Armstrong continue for a total of 2 weeks - Discontinued 08/05/17 ID consult: Dr. Armstrong --> help appreciated Urinary retention 07/21: NS stopped because tube feeds restarted 07/20: Urine dark in color, monitor, continue NS at 50 ml per hour 07/07/17: Catheter flushed, patient output approx. 500mL within one hour post flush. 06/27/17: Continue bladder massages to aid in voiding. 06/25/17: Patient voids with movement. Continue bladder massages to aid in voiding. 06/23/17: Patient will need to have daily bladder massage to allow for complete voiding 06/17/17: Nursing communication placed in: straight catherization with bladder scan> 100ml 06/08: urinary retention yesterday, was given 40mg lasix iv and patient was able to urinate through condom baker Take note condom cath not always securely in place so Is and Os are approximate as patient does wet bed Ordered- new condom catheter on 05/22/17 Flomax 0.4mg PEG daily Proscar 5mg PEG daily continue Bethanecol 50mg PEG TID- started after persistent retention and found to be effective. monitor I's and O's - I/O: 780/350 Check bladder scan for residual urine three times weekly Hypokalemia K+ on 08/10: 4.2 Sacral ulcer Healed Cont with offloading/cushioning/turning Continue frequent turning, protective ointment and skin checks. History of coronary artery disease s/p cardiac stents on 06/13/15 Cont ASA 81mg via PEG daily Cont Coreg 3.125mg PEG BID Cont Plavix 75 mg PEG daily Seizures Continue Keppra 500mg PEG BID for seizure prophylaxis Monitor for activity Lower extremity edema Improved SCDs in place Pressure ulcer boots on b/l Continue to monitor Prophylactic measure Pepcid 20 mg PEG BID Lovenox 40mg SC daily SCDs and offloading boots continue to turn and reposition q2hrs Continue to monitor medication administrations and clinical presentation weekly labs. vasoline ointment applied to feet prn to prevent hyperkeratosis Please hold feeding from 10pm-6am, placed into nursing communication Vitamin A & D for lips There is no update at this time.
[2017-09-16] MEDS: levETIRAcetam 100 mg/ml (5ml) Oral Syringe PEG SCH ×2 (10:03→17:53)
[2017-09-16] MEDS: Saccharomyces Boulardi 250 mg Cap PEG SCH (10:03)
[2017-09-16] MEDS: Enoxaparin 30 mg Syringe SC SCH (10:04)
[2017-09-16] MEDS: Nystatin 100,000 Units/ml Oral Susp 5 ml UD PO SCH ×4 (10:04→21:30)
[2017-09-17] MEDS: Albuterol-Ipratrop 3 mg / 0.5 (3 ml) UD INH SCH ×4 (00:55→23:34)
[2017-09-17] MEDS: Acetylcysteine 20% Inhal Soln (4ml) INH SCH ×4 (00:55→23:34)
--- NOTE | 2017-09-17 07:17 | CP.PCM.PN ---
<Ben Martell R - Last Filed: 09/17/17 07:15> Subjective - Date & Time of Evaluation Date of Evaluation: 09/17/17 Time of Evaluation: 07:15 - Subjective Subjective: PGY-1 Note for medicine, Dr Moore. Patient seen and examined at bedside this morning. No acute events overnight. Patient had anoxic brain injury in 2014, ROS unattainable. Objective - Vital Signs/Intake and Output Vital Signs (last 24 hours): Temp Pulse Resp BP Pulse Ox 98.2 F 84 20 112/72 97 09/16/17 23:43 09/16/17 23:43 09/16/17 23:43 09/16/17 23:43 09/16/17 23:43 Intake and Output: 09/17/17 09/17/17 06:59 18:59 Intake Total 1610 Output Total 640 Balance 970 - Medications Medications: Current Medications Acetylcysteine (Acetylcysteine 20%) 4 ml INH RQ8 [facility] Last Admin: 09/17/17 00:55 Dose: 4 ml Albuterol/Ipratropium (Duoneb 3 Mg/0.5 Mg (3 Ml) Ud) 3 ml INH RQ8 [facility] Last Admin: 09/17/17 00:55 Dose: 3 ml Aspirin (Aspirin Chewable) 81 mg PEG DAILY [facility] Last Admin: 09/16/17 10:00 Dose: 81 mg Carvedilol (Coreg) 3.125 mg PEG BID [facility] Last Admin: 09/16/17 17:53 Dose: 3.125 mg Clopidogrel Bisulfate (Plavix) 75 mg PEG DAILY [facility] Last Admin: 09/16/17 10:05 Dose: 75 mg Enoxaparin Sodium (Lovenox) 30 mg SC DAILY [facility] Last Admin: 09/16/17 10:04 Dose: 30 mg Famotidine (Pepcid) 20 mg PEG DAILY [facility] Last Admin: 09/16/17 10:04 Dose: 20 mg Finasteride (Proscar) 5 mg PEG DAILY [facility] Last Admin: 09/16/17 10:05 Dose: 5 mg Levetiracetam (Keppra) 500 mg PEG BID [facility] Last Admin: 09/16/17 17:53 Dose: 500 mg Nystatin (Nystatin Oral Susp) 5 ml PO QID [facility] Last Admin: 09/16/17 21:30 Dose: 5 ml Saccharomyces Boulardii (Florastor) 250 mg PEG DAILY [facility] Last Admin: 09/16/17 10:03 Dose: 250 mg Scopolamine (Transderm-Scop) 1 patch TD Q3D [facility] Last Admin: 09/15/17 18:30 Dose: Not Given Tamsulosin HCl (Flomax) 0.4 mg PEG DAILY [facility] Last Admin: 09/16/17 10:03 Dose: 0.4 mg - Labs Labs: 09/14/17 10:53 09/14/17 08:20 PT 10.6 SECONDS (9.7-12.2) 11/24/15 14:10 INR 1.0 11/24/15 14:10 APTT 25 SECONDS (21-34) 11/24/15 14:10 - Additional Findings Additional findings: - Constitutional Appears: Cachectic - Head Exam Head Exam: ATRAUMATIC, NORMAL INSPECTION - Eye Exam Eye Exam: absent: EOMI - ENT Exam ENT Exam: Mucous Membranes Moist - Neck Exam Neck Exam: Normal Inspection - Respiratory Exam Respiratory Exam: NORMAL BREATHING PATTERN. absent: Clear to Ausculation Bilateral Additional comments: trach collar in place - Cardiovascular Exam Cardiovascular Exam: REGULAR RHYTHM. absent: Bradycardia, Tachycardia - GI/Abdominal Exam GI & Abdominal Exam: Soft - Exam Additional comments: baker condom in place - Extremities Exam Extremities Exam: Normal Inspection - Neurological Exam Neurological Exam: Altered - Skin Skin Exam: Dry, Intact, Normal Color, Warm Assessment and Plan - Assessment and Plan (Free Text) Assessment: Anoxic encephalopathy s/p cardiac arrest in 05/2015 no acute changes Pt has non spontaneous movements. Continue tube feeds- goal of 60ml/hr, feedings held at night due to fluid overload Respiratory failure Trach in place, continue daily monitoring for secretions. No change in management at this time. Continue with aggressive suctioning multiple times a day per respiratory therapist. Monitor for signs of respiratory distress Thick secretions Duoneb 3ml INH Q6 and Mucomyst 4ml INH Q6H Scopolamine 1 patch TD Q3D [facility] Repeat CXR on 05/28/17: linear increased consolidative changes in the right mid- lung zone and left lung base which may represent atelectasis and/or infiltrate. Questionable trace left pleural effusion. moderate venous congestion. cardiomegaly. degenerative changes in the spine and shoulders 09/09: Secretions suctioned at bedside Leukocytosis secondary to UTI. Resolved 08/10: WBC 8.2 afebrile Meropenem (started 07/22) - per Dr. Armstrong continue for a total of 2 weeks - Discontinued 08/05/17 ID consult: Dr. Armstrong --> help appreciated Urinary retention 07/21: NS stopped because tube feeds restarted 07/20: Urine dark in color, monitor, continue NS at 50 ml per hour 07/07/17: Catheter flushed, patient output approx. 500mL within one hour post flush. 06/27/17: Continue bladder massages to aid in voiding. 06/25/17: Patient voids with movement. Continue bladder massages to aid in voiding. 06/23/17: Patient will need to have daily bladder massage to allow for complete voiding 06/17/17: Nursing communication placed in: straight catherization with bladder scan> 100ml 06/08: urinary retention yesterday, was given 40mg lasix iv and patient was able to urinate through condom baker Take note condom cath not always securely in place so Is and Os are approximate as patient does wet bed Ordered- new condom catheter on 05/22/17 Flomax 0.4mg PEG daily Proscar 5mg PEG daily continue Bethanecol 50mg PEG TID- started after persistent retention and found to be effective. monitor I's and O's - I/O: 780/350 Check bladder scan for residual urine three times weekly Hypokalemia K+ on 08/10: 4.2 Sacral ulcer Healed Cont with offloading/cushioning/turning Continue frequent turning, protective ointment and skin checks. History of coronary artery disease s/p cardiac stents on 06/13/15 Cont ASA 81mg via PEG daily Cont Coreg 3.125mg PEG BID Cont Plavix 75 mg PEG daily Seizures Continue Keppra 500mg PEG BID for seizure prophylaxis Monitor for activity Lower extremity edema Improved SCDs in place Pressure ulcer boots on b/l Continue to monitor Prophylactic measure Pepcid 20 mg PEG BID Lovenox 40mg SC daily SCDs and offloading boots continue to turn and reposition q2hrs Continue to monitor medication administrations and clinical presentation weekly labs. vasoline ointment applied to feet prn to prevent hyperkeratosis Please hold feeding from 10pm-6am, placed into nursing communication Vitamin A & D for lips There is no update at this time. <Jeison Moore - Last Filed: 09/20/17 15:46> Objective - Vital Signs/Intake and Output Vital Signs (last 24 hours): Temp Pulse Resp BP Pulse Ox 98.2 F 71 20 118/84 98 09/20/17 08:28 09/20/17 08:28 09/20/17 08:28 09/20/17 08:28 09/20/17 08:28 Intake and Output: 09/20/17 09/20/17 06:59 18:59 Intake Total 1560 Output Total 1200 Balance 360 - Medications Medications: Current Medications Acetylcysteine (Acetylcysteine 20%) 4 ml INH RQ8 [facility] Last Admin: 09/20/17 07:43 Dose: 4 ml Albuterol/Ipratropium (Duoneb 3 Mg/0.5 Mg (3 Ml) Ud) 3 ml INH RQ8 [facility] Last Admin: 09/20/17 07:43 Dose: 3 ml Aspirin (Aspirin Chewable) 81 mg PEG DAILY [facility] Last Admin: 09/20/17 10:32 Dose: 81 mg Carvedilol (Coreg) 3.125 mg PEG BID [facility] Last Admin: 09/20/17 10:31 Dose: 3.125 mg Clopidogrel Bisulfate (Plavix) 75 mg PEG DAILY [facility] Last Admin: 09/20/17 10:32 Dose: 75 mg Enoxaparin Sodium (Lovenox) 30 mg SC DAILY [facility] Last Admin: 09/20/17 10:32 Dose: 30 mg Famotidine (Pepcid) 20 mg PEG DAILY [facility] Last Admin: 09/20/17 10:31 Dose: 20 mg Finasteride (Proscar) 5 mg PEG DAILY [facility] Last Admin: 09/20/17 10:32 Dose: 5 mg Hydrocortisone (Cortizone 1% Cream) 0 gm TOP BID [facility] Stop: 09/21/17 11:31 Last Admin: 09/20/17 10:32 Dose: 1 applic Levetiracetam (Keppra) 500 mg PEG BID [facility] Last Admin: 09/20/17 10:32 Dose: 500 mg Nystatin (Nystatin Oral Susp) 5 ml PO QID [facility] Last Admin: 09/20/17 13:56 Dose: 5 ml Saccharomyces Boulardii (Florastor) 250 mg PEG DAILY [facility] Last Admin: 09/20/17 10:31 Dose: 250 mg Scopolamine (Transderm-Scop) 1 patch TD Q3D [facility] Last Admin: 09/18/17 17:43 Dose: 1 patch Tamsulosin HCl (Flomax) 0.4 mg PEG DAILY [facility] Last Admin: 09/20/17 10:36 Dose: 0.4 mg - Labs Labs: 09/14/17 10:53 09/14/17 08:20 PT 10.6 SECONDS (9.7-12.2) 11/24/15 14:10 INR 1.0 11/24/15 14:10 APTT 25 SECONDS (21-34) 11/24/15 14:10 Attending/Attestation - Attestation I have personally seen and examined this patient.: Yes I have fully participated in the care of the patient.: Yes I have reviewed all pertinent clinical information, including history, physical exam and plan: Yes Notes (Text): patient has no new issues Seen and examined I gree with the resident's documentation of assessment and plan.
[2017-09-17] MEDS: Enoxaparin 30 mg Syringe SC SCH (09:58)
[2017-09-17] MEDS: Nystatin 100,000 Units/ml Oral Susp 5 ml UD PO SCH ×4 (09:58→21:44)
[2017-09-17] MEDS: levETIRAcetam 100 mg/ml (5ml) Oral Syringe PEG SCH ×2 (09:58→18:27)
[2017-09-17] MEDS: Saccharomyces Boulardi 250 mg Cap PEG SCH (09:58)
[2017-09-18] MEDS: Albuterol-Ipratrop 3 mg / 0.5 (3 ml) UD INH SCH ×3 (07:50→23:52)
[2017-09-18] MEDS: Acetylcysteine 20% Inhal Soln (4ml) INH SCH ×3 (07:50→23:52)
[2017-09-18] MEDS: levETIRAcetam 100 mg/ml (5ml) Oral Syringe PEG SCH ×2 (10:24→17:26)
[2017-09-18] MEDS: Nystatin 100,000 Units/ml Oral Susp 5 ml UD PO SCH ×3 (10:24→17:26)
[2017-09-18] MEDS: Enoxaparin 30 mg Syringe SC SCH (10:25)
[2017-09-18] MEDS: Saccharomyces Boulardi 250 mg Cap PEG SCH (10:25)
--- NOTE | 2017-09-18 11:21 | CP.PCM.PN ---
<Ben Martell R - Last Filed: 09/18/17 11:18> Subjective - Date & Time of Evaluation Date of Evaluation: 09/18/17 Time of Evaluation: 11:18 - Subjective Subjective: PGY-[address] Mooer. Patient was seen and examined at bedside. Patient was seen and examined at bedside. Patient is unchanged clinically and continues to be arousable to touch. Patient is non-verbal, therefore ROS cannot be evaluated. Patient is trach and PEG-tube is in place and intact. As per nurse's note, there were no acute issues over night. Objective - Vital Signs/Intake and Output Vital Signs (last 24 hours): Temp Pulse Resp BP Pulse Ox 98.2 F 85 20 120/76 100 09/18/17 07:57 09/18/17 07:57 09/18/17 07:57 09/18/17 07:57 09/18/17 07:57 Intake and Output: 09/18/17 09/18/17 06:59 18:59 Intake Total 400 780 Output Total 400 500 Balance 0 280 - Medications Medications: Current Medications Acetylcysteine (Acetylcysteine 20%) 4 ml INH RQ8 [facility] Last Admin: 09/18/17 07:50 Dose: 4 ml Albuterol/Ipratropium (Duoneb 3 Mg/0.5 Mg (3 Ml) Ud) 3 ml INH RQ8 [facility] Last Admin: 09/18/17 07:50 Dose: 3 ml Aspirin (Aspirin Chewable) 81 mg PEG DAILY [facility] Last Admin: 09/18/17 10:24 Dose: 81 mg Carvedilol (Coreg) 3.125 mg PEG BID [facility] Last Admin: 09/18/17 10:25 Dose: 3.125 mg Clopidogrel Bisulfate (Plavix) 75 mg PEG DAILY [facility] Last Admin: 09/18/17 10:24 Dose: 75 mg Enoxaparin Sodium (Lovenox) 30 mg SC DAILY [facility] Last Admin: 09/18/17 10:25 Dose: 30 mg Famotidine (Pepcid) 20 mg PEG DAILY [facility] Last Admin: 09/18/17 10:24 Dose: 20 mg Finasteride (Proscar) 5 mg PEG DAILY [facility] Last Admin: 09/18/17 10:24 Dose: 5 mg Levetiracetam (Keppra) 500 mg PEG BID [facility] Last Admin: 09/18/17 10:24 Dose: 500 mg Nystatin (Nystatin Oral Susp) 5 ml PO QID [facility] Last Admin: 09/18/17 10:24 Dose: 5 ml Saccharomyces Boulardii (Florastor) 250 mg PEG DAILY [facility] Last Admin: 09/18/17 10:25 Dose: 250 mg Scopolamine (Transderm-Scop) 1 patch TD Q3D [facility] Last Admin: 09/15/17 18:30 Dose: Not Given Tamsulosin HCl (Flomax) 0.4 mg PEG DAILY [facility] Last Admin: 09/18/17 10:25 Dose: 0.4 mg - Labs Labs: 09/14/17 10:53 09/14/17 08:20 PT 10.6 SECONDS (9.7-12.2) 11/24/15 14:10 INR 1.0 11/24/15 14:10 APTT 25 SECONDS (21-34) 11/24/15 14:10 - Additional Findings Additional findings: - Constitutional Appears: Cachectic - Head Exam Head Exam: ATRAUMATIC, NORMAL INSPECTION - Eye Exam Eye Exam: absent: EOMI - ENT Exam ENT Exam: Mucous Membranes Moist - Neck Exam Neck Exam: Normal Inspection - Respiratory Exam Respiratory Exam: NORMAL BREATHING PATTERN. absent: Clear to Ausculation Bilateral Additional comments: trach collar in place - Cardiovascular Exam Cardiovascular Exam: REGULAR RHYTHM. absent: Bradycardia, Tachycardia - GI/Abdominal Exam GI & Abdominal Exam: Soft - Exam Additional comments: baker condom in place - Extremities Exam Extremities Exam: Normal Inspection - Neurological Exam Neurological Exam: Altered - Skin Skin Exam: Dry, Intact, Normal Color, Warm Assessment and Plan - Assessment and Plan (Free Text) Assessment: Anoxic encephalopathy s/p cardiac arrest in 05/2015 no acute changes Pt has non spontaneous movements. Continue tube feeds- goal of 60ml/hr, feedings held at night due to fluid overload Respiratory failure Trach in place, continue daily monitoring for secretions. No change in management at this time. Continue with aggressive suctioning multiple times a day per respiratory therapist. Monitor for signs of respiratory distress Thick secretions Duoneb 3ml INH Q6 and Mucomyst 4ml INH Q6H Scopolamine 1 patch TD Q3D [facility] Repeat CXR on 05/28/17: linear increased consolidative changes in the right mid- lung zone and left lung base which may represent atelectasis and/or infiltrate. Questionable trace left pleural effusion. moderate venous congestion. cardiomegaly. degenerative changes in the spine and shoulders 09/09: Secretions suctioned at bedside Leukocytosis secondary to UTI. Resolved 08/10: WBC 8.2 afebrile Meropenem (started 07/22) - per Dr. Armstrong continue for a total of 2 weeks - Discontinued 08/05/17 ID consult: Dr. Armstrong --> help appreciated Urinary retention 07/21: NS stopped because tube feeds restarted 07/20: Urine dark in color, monitor, continue NS at 50 ml per hour 07/07/17: Catheter flushed, patient output approx. 500mL within one hour post flush. 06/27/17: Continue bladder massages to aid in voiding. 06/25/17: Patient voids with movement. Continue bladder massages to aid in voiding. 06/23/17: Patient will need to have daily bladder massage to allow for complete voiding 06/17/17: Nursing communication placed in: straight catherization with bladder scan> 100ml 06/08: urinary retention yesterday, was given 40mg lasix iv and patient was able to urinate through condom baker Take note condom cath not always securely in place so Is and Os are approximate as patient does wet bed Ordered- new condom catheter on 05/22/17 Flomax 0.4mg PEG daily Proscar 5mg PEG daily continue Bethanecol 50mg PEG TID- started after persistent retention and found to be effective. monitor I's and O's - I/O: 780/350 Check bladder scan for residual urine three times weekly Hypokalemia K+ on 08/10: 4.2 Sacral ulcer Healed Cont with offloading/cushioning/turning Continue frequent turning, protective ointment and skin checks. History of coronary artery disease s/p cardiac stents on 06/13/15 Cont ASA 81mg via PEG daily Cont Coreg 3.125mg PEG BID Cont Plavix 75 mg PEG daily Seizures Continue Keppra 500mg PEG BID for seizure prophylaxis Monitor for activity Lower extremity edema Improved SCDs in place Pressure ulcer boots on b/l Continue to monitor Prophylactic measure Pepcid 20 mg PEG BID Lovenox 40mg SC daily SCDs and offloading boots continue to turn and reposition q2hrs Continue to monitor medication administrations and clinical presentation weekly labs. vasoline ointment applied to feet prn to prevent hyperkeratosis Please hold feeding from 10pm-6am, placed into nursing communication Vitamin A & D for lips There is no update at this time. <Jeison Moore - Last Filed: 09/20/17 15:48> Objective - Vital Signs/Intake and Output Vital Signs (last 24 hours): Temp Pulse Resp BP Pulse Ox 98.2 F 71 20 118/84 98 09/20/17 08:28 09/20/17 08:28 09/20/17 08:28 09/20/17 08:28 09/20/17 08:28 Intake and Output: 09/20/17 09/20/17 06:59 18:59 Intake Total 1560 Output Total 1200 Balance 360 - Medications Medications: Current Medications Acetylcysteine (Acetylcysteine 20%) 4 ml INH RQ8 [facility] Last Admin: 09/20/17 07:43 Dose: 4 ml Albuterol/Ipratropium (Duoneb 3 Mg/0.5 Mg (3 Ml) Ud) 3 ml INH RQ8 [facility] Last Admin: 09/20/17 07:43 Dose: 3 ml Aspirin (Aspirin Chewable) 81 mg PEG DAILY [facility] Last Admin: 09/20/17 10:32 Dose: 81 mg Carvedilol (Coreg) 3.125 mg PEG BID [facility] Last Admin: 09/20/17 10:31 Dose: 3.125 mg Clopidogrel Bisulfate (Plavix) 75 mg PEG DAILY [facility] Last Admin: 09/20/17 10:32 Dose: 75 mg Enoxaparin Sodium (Lovenox) 30 mg SC DAILY [facility] Last Admin: 09/20/17 10:32 Dose: 30 mg Famotidine (Pepcid) 20 mg PEG DAILY [facility] Last Admin: 09/20/17 10:31 Dose: 20 mg Finasteride (Proscar) 5 mg PEG DAILY [facility] Last Admin: 09/20/17 10:32 Dose: 5 mg Hydrocortisone (Cortizone 1% Cream) 0 gm TOP BID [facility] Stop: 09/21/17 11:31 Last Admin: 09/20/17 10:32 Dose: 1 applic Levetiracetam (Keppra) 500 mg PEG BID [facility] Last Admin: 09/20/17 10:32 Dose: 500 mg Nystatin (Nystatin Oral Susp) 5 ml PO QID [facility] Last Admin: 09/20/17 13:56 Dose: 5 ml Saccharomyces Boulardii (Florastor) 250 mg PEG DAILY [facility] Last Admin: 09/20/17 10:31 Dose: 250 mg Scopolamine (Transderm-Scop) 1 patch TD Q3D [facility] Last Admin: 09/18/17 17:43 Dose: 1 patch Tamsulosin HCl (Flomax) 0.4 mg PEG DAILY [facility] Last Admin: 09/20/17 10:36 Dose: 0.4 mg - Labs Labs: 09/14/17 10:53 09/14/17 08:20 PT 10.6 SECONDS (9.7-12.2) 11/24/15 14:10 INR 1.0 11/24/15 14:10 APTT 25 SECONDS (21-34) 11/24/15 14:10 Attending/Attestation - Attestation I have personally seen and examined this patient.: Yes I have fully participated in the care of the patient.: Yes I have reviewed all pertinent clinical information, including history, physical exam and plan: Yes Notes (Text): There is no new changes. patient was seen and examined I agree with the resident's documentation of assessment and plan 09/20/17 15:47
[2017-09-18] MEDS: Hydrocortisone 1% Cream (30 GM) TOP SCH ×2 (12:30→17:42)
--- NOTE | 2017-09-19 02:46 | CP.PCM.PN ---
<Josue Denson - Last Filed: 09/19/17 02:44> Subjective - Date & Time of Evaluation Date of Evaluation: 09/19/17 Time of Evaluation: 02:44 - Subjective Subjective: Medicine Progress Note HPI: Patient was seen and examined at bedside. ROS unattainable due to anoxic brain injury Objective - Vital Signs/Intake and Output Vital Signs (last 24 hours): Temp Pulse Resp BP Pulse Ox 98.6 F 81 20 125/79 97 09/19/17 00:00 09/19/17 00:00 09/19/17 00:00 09/19/17 00:00 09/19/17 00:00 Intake and Output: 09/18/17 09/19/17 18:59 06:59 Intake Total 1560 Output Total 1000 Balance 560 - Medications Medications: Current Medications Acetylcysteine (Acetylcysteine 20%) 4 ml INH RQ8 [facility] Last Admin: 09/18/17 23:52 Dose: 4 ml Albuterol/Ipratropium (Duoneb 3 Mg/0.5 Mg (3 Ml) Ud) 3 ml INH RQ8 [facility] Last Admin: 09/18/17 23:52 Dose: 3 ml Aspirin (Aspirin Chewable) 81 mg PEG DAILY [facility] Last Admin: 09/18/17 10:24 Dose: 81 mg Carvedilol (Coreg) 3.125 mg PEG BID [facility] Last Admin: 09/18/17 17:25 Dose: 3.125 mg Clopidogrel Bisulfate (Plavix) 75 mg PEG DAILY [facility] Last Admin: 09/18/17 10:24 Dose: 75 mg Enoxaparin Sodium (Lovenox) 30 mg SC DAILY [facility] Last Admin: 09/18/17 10:25 Dose: 30 mg Famotidine (Pepcid) 20 mg PEG DAILY [facility] Last Admin: 09/18/17 10:24 Dose: 20 mg Finasteride (Proscar) 5 mg PEG DAILY [facility] Last Admin: 09/18/17 10:24 Dose: 5 mg Hydrocortisone (Cortizone 1% Cream) 0 gm TOP BID [facility] Stop: 09/21/17 11:31 Last Admin: 09/18/17 17:42 Dose: 1 applic Levetiracetam (Keppra) 500 mg PEG BID [facility] Last Admin: 09/18/17 17:26 Dose: 500 mg Nystatin (Nystatin Oral Susp) 5 ml PO QID [facility] Last Admin: 09/18/17 17:26 Dose: 5 ml Saccharomyces Boulardii (Florastor) 250 mg PEG DAILY [facility] Last Admin: 09/18/17 10:25 Dose: 250 mg Scopolamine (Transderm-Scop) 1 patch TD Q3D [facility] Last Admin: 09/18/17 17:43 Dose: 1 patch Tamsulosin HCl (Flomax) 0.4 mg PEG DAILY [facility] Last Admin: 09/18/17 10:25 Dose: 0.4 mg - Labs Labs: 09/14/17 10:53 09/14/17 08:20 PT 10.6 SECONDS (9.7-12.2) 11/24/15 14:10 INR 1.0 11/24/15 14:10 APTT 25 SECONDS (21-34) 11/24/15 14:10 - Additional Findings Additional findings: Appears: Cachectic - Head Exam Head Exam: ATRAUMATIC, NORMAL INSPECTION - Eye Exam Eye Exam: absent: EOMI - ENT Exam ENT Exam: Mucous Membranes Moist - Neck Exam Neck Exam: Normal Inspection - Respiratory Exam Respiratory Exam: NORMAL BREATHING PATTERN. absent: Clear to Ausculation Bilateral Additional comments: trach collar in place - Cardiovascular Exam Cardiovascular Exam: REGULAR RHYTHM. absent: Bradycardia, Tachycardia - GI/Abdominal Exam GI & Abdominal Exam: Soft - Exam Additional comments: baker condom in place - Extremities Exam Extremities Exam: Normal Inspection - Neurological Exam Neurological Exam: Altered - Skin Skin Exam: Dry, Intact, Normal Color, Warm Assessment and Plan - Assessment and Plan (Free Text) Assessment: Anoxic encephalopathy s/p cardiac arrest in 05/2015 no acute changes Pt has non spontaneous movements. Continue tube feeds- goal of 60ml/hr, feedings held at night due to fluid overload Respiratory failure Trach in place, continue daily monitoring for secretions. No change in management at this time. Continue with aggressive suctioning multiple times a day per respiratory therapist. Monitor for signs of respiratory distress Thick secretions Duoneb 3ml INH Q6 and Mucomyst 4ml INH Q6H Scopolamine 1 patch TD Q3D [facility] Repeat CXR on 05/28/17: linear increased consolidative changes in the right mid- lung zone and left lung base which may represent atelectasis and/or infiltrate. Questionable trace left pleural effusion. moderate venous congestion. cardiomegaly. degenerative changes in the spine and shoulders 09/09: Secretions suctioned at bedside Leukocytosis secondary to UTI. Resolved 08/10: WBC 8.2 afebrile Meropenem (started 07/22) - per Dr. Armstrong continue for a total of 2 weeks - Discontinued 08/05/17 ID consult: Dr. Armstrong --> help appreciated Urinary retention 07/21: NS stopped because tube feeds restarted 07/20: Urine dark in color, monitor, continue NS at 50 ml per hour 07/07/17: Catheter flushed, patient output approx. 500mL within one hour post flush. 06/27/17: Continue bladder massages to aid in voiding. 06/25/17: Patient voids with movement. Continue bladder massages to aid in voiding. 06/23/17: Patient will need to have daily bladder massage to allow for complete voiding 06/17/17: Nursing communication placed in: straight catherization with bladder scan> 100ml 06/08: urinary retention yesterday, was given 40mg lasix iv and patient was able to urinate through condom baker Take note condom cath not always securely in place so Is and Os are approximate as patient does wet bed Ordered- new condom catheter on 05/22/17 Flomax 0.4mg PEG daily Proscar 5mg PEG daily continue Bethanecol 50mg PEG TID- started after persistent retention and found to be effective. monitor I's and O's - I/O: 780/350 Check bladder scan for residual urine three times weekly Hypokalemia K+ on 08/10: 4.2 Sacral ulcer Healed Cont with offloading/cushioning/turning Continue frequent turning, protective ointment and skin checks. History of coronary artery disease s/p cardiac stents on 06/13/15 Cont ASA 81mg via PEG daily Cont Coreg 3.125mg PEG BID Cont Plavix 75 mg PEG daily Seizures Continue Keppra 500mg PEG BID for seizure prophylaxis Monitor for activity Lower extremity edema Improved SCDs in place Pressure ulcer boots on /l Continue to monitor Prophylactic measure Pepcid 20 mg PEG BID Lovenox 40mg SC daily SCDs and offloading boots continue to turn and reposition q2hrs Continue to monitor medication administrations and clinical presentation weekly labs. vasoline ointment applied to feet prn to prevent hyperkeratosis Please hold feeding from 10pm-6am, placed into nursing communication Vitamin A & D for lips There is no update at this time. <Jeison Moore - Last Filed: 09/20/17 15:50> Objective - Vital Signs/Intake and Output Vital Signs (last 24 hours): Temp Pulse Resp BP Pulse Ox 98.2 F 71 20 118/84 98 09/20/17 08:28 09/20/17 08:28 09/20/17 08:28 09/20/17 08:28 09/20/17 08:28 Intake and Output: 09/20/17 09/20/17 06:59 18:59 Intake Total 1560 Output Total 1200 Balance 360 - Medications Medications: Current Medications Acetylcysteine (Acetylcysteine 20%) 4 ml INH RQ8 [facility] Last Admin: 09/20/17 07:43 Dose: 4 ml Albuterol/Ipratropium (Duoneb 3 Mg/0.5 Mg (3 Ml) Ud) 3 ml INH RQ8 [facility] Last Admin: 09/20/17 07:43 Dose: 3 ml Aspirin (Aspirin Chewable) 81 mg PEG DAILY [facility] Last Admin: 09/20/17 10:32 Dose: 81 mg Carvedilol (Coreg) 3.125 mg PEG BID [facility] Last Admin: 09/20/17 10:31 Dose: 3.125 mg Clopidogrel Bisulfate (Plavix) 75 mg PEG DAILY [facility] Last Admin: 09/20/17 10:32 Dose: 75 mg Enoxaparin Sodium (Lovenox) 30 mg SC DAILY [facility] Last Admin: 09/20/17 10:32 Dose: 30 mg Famotidine (Pepcid) 20 mg PEG DAILY [facility] Last Admin: 09/20/17 10:31 Dose: 20 mg Finasteride (Proscar) 5 mg PEG DAILY [facility] Last Admin: 09/20/17 10:32 Dose: 5 mg Hydrocortisone (Cortizone 1% Cream) 0 gm TOP BID [facility] Stop: 09/21/17 11:31 Last Admin: 09/20/17 10:32 Dose: 1 applic Levetiracetam (Keppra) 500 mg PEG BID [facility] Last Admin: 09/20/17 10:32 Dose: 500 mg Nystatin (Nystatin Oral Susp) 5 ml PO QID [facility] Last Admin: 09/20/17 13:56 Dose: 5 ml Saccharomyces Boulardii (Florastor) 250 mg PEG DAILY [facility] Last Admin: 09/20/17 10:31 Dose: 250 mg Scopolamine (Transderm-Scop) 1 patch TD Q3D [facility] Last Admin: 09/18/17 17:43 Dose: 1 patch Tamsulosin HCl (Flomax) 0.4 mg PEG DAILY [facility] Last Admin: 09/20/17 10:36 Dose: 0.4 mg - Labs Labs: 09/14/17 10:53 09/14/17 08:20 PT 10.6 SECONDS (9.7-12.2) 11/24/15 14:10 INR 1.0 11/24/15 14:10 APTT 25 SECONDS (21-34) 11/24/15 14:10 Attending/Attestation - Attestation I have personally seen and examined this patient.: Yes I have fully participated in the care of the patient.: Yes I have reviewed all pertinent clinical information, including history, physical exam and plan: Yes Notes (Text): There is no new changes. patient was seen and examined I agree with the residents documentation of the assessment and plan 09/20/17 15:49
[2017-09-19] MEDS: Acetylcysteine 20% Inhal Soln (4ml) INH SCH ×2 (07:45→16:00)
[2017-09-19] MEDS: Albuterol-Ipratrop 3 mg / 0.5 (3 ml) UD INH SCH ×2 (07:45→16:00)
[2017-09-19] MEDS: levETIRAcetam 100 mg/ml (5ml) Oral Syringe PEG SCH ×2 (10:28→17:50)
[2017-09-19] MEDS: Nystatin 100,000 Units/ml Oral Susp 5 ml UD PO SCH ×4 (10:28→21:16)
[2017-09-19] MEDS: Saccharomyces Boulardi 250 mg Cap PEG SCH (10:28)
[2017-09-19] MEDS: Hydrocortisone 1% Cream (30 GM) TOP SCH ×2 (10:29→18:10)
[2017-09-19] MEDS: Enoxaparin 30 mg Syringe SC SCH (10:29)
[2017-09-20] MEDS: Albuterol-Ipratrop 3 mg / 0.5 (3 ml) UD INH SCH ×3 (00:34→16:52)
[2017-09-20] MEDS: Acetylcysteine 20% Inhal Soln (4ml) INH SCH ×3 (00:34→16:52)
--- NOTE | 2017-09-20 01:46 | CP.PCM.PN ---
<Josue Denson - Last Filed: 09/20/17 01:44> Subjective - Date & Time of Evaluation Date of Evaluation: 09/20/17 Time of Evaluation: 01:44 - Subjective Subjective: Medicine Progress Note HPI: Patient was seen and examined at bedside. ROS unattainable due to anoxic brain injury Objective - Vital Signs/Intake and Output Vital Signs (last 24 hours): Temp Pulse Resp BP Pulse Ox 98.6 F 78 20 125/81 99 09/19/17 23:35 09/19/17 23:35 09/19/17 23:35 09/19/17 23:35 09/19/17 23:35 Intake and Output: 09/19/17 09/20/17 18:59 06:59 Intake Total 780 780 Output Total 500 500 Balance 280 280 - Medications Medications: Current Medications Acetylcysteine (Acetylcysteine 20%) 4 ml INH RQ8 [facility] Last Admin: 09/20/17 00:34 Dose: 4 ml Albuterol/Ipratropium (Duoneb 3 Mg/0.5 Mg (3 Ml) Ud) 3 ml INH RQ8 [facility] Last Admin: 09/20/17 00:34 Dose: 3 ml Aspirin (Aspirin Chewable) 81 mg PEG DAILY [facility] Last Admin: 09/19/17 10:29 Dose: 81 mg Carvedilol (Coreg) 3.125 mg PEG BID [facility] Last Admin: 09/19/17 17:50 Dose: 3.125 mg Clopidogrel Bisulfate (Plavix) 75 mg PEG DAILY [facility] Last Admin: 09/19/17 10:29 Dose: 75 mg Enoxaparin Sodium (Lovenox) 30 mg SC DAILY [facility] Last Admin: 09/19/17 10:29 Dose: 30 mg Famotidine (Pepcid) 20 mg PEG DAILY [facility] Last Admin: 09/19/17 10:29 Dose: 20 mg Finasteride (Proscar) 5 mg PEG DAILY [facility] Last Admin: 09/19/17 10:29 Dose: 5 mg Hydrocortisone (Cortizone 1% Cream) 0 gm TOP BID [facility] Stop: 09/21/17 11:31 Last Admin: 09/19/17 18:10 Dose: 1 applic Levetiracetam (Keppra) 500 mg PEG BID [facility] Last Admin: 09/19/17 17:50 Dose: 500 mg Nystatin (Nystatin Oral Susp) 5 ml PO QID [facility] Last Admin: 09/19/17 21:16 Dose: 5 ml Saccharomyces Boulardii (Florastor) 250 mg PEG DAILY [facility] Last Admin: 09/19/17 10:28 Dose: 250 mg Scopolamine (Transderm-Scop) 1 patch TD Q3D [facility] Last Admin: 09/18/17 17:43 Dose: 1 patch Tamsulosin HCl (Flomax) 0.4 mg PEG DAILY [facility] Last Admin: 09/19/17 10:29 Dose: 0.4 mg - Labs Labs: 09/14/17 10:53 09/14/17 08:20 PT 10.6 SECONDS (9.7-12.2) 11/24/15 14:10 INR 1.0 11/24/15 14:10 APTT 25 SECONDS (21-34) 11/24/15 14:10 - Constitutional Appears: Chronically Ill - Additional Findings Additional findings: - Head Exam Head Exam: ATRAUMATIC, NORMAL INSPECTION - Eye Exam Eye Exam: absent: EOMI - ENT Exam ENT Exam: Mucous Membranes Moist - Neck Exam Neck Exam: Normal Inspection - Respiratory Exam Respiratory Exam: NORMAL BREATHING PATTERN. absent: Clear to Ausculation Bilateral Additional comments: trach collar in place - Cardiovascular Exam Cardiovascular Exam: REGULAR RHYTHM. absent: Bradycardia, Tachycardia - GI/Abdominal Exam GI & Abdominal Exam: Soft - Exam Additional comments: baker condom in place - Extremities Exam Extremities Exam: Normal Inspection - Neurological Exam Neurological Exam: Altered - Skin Skin Exam: Dry, Intact, Normal Color, Warm Assessment and Plan - Assessment and Plan (Free Text) Assessment: Anoxic encephalopathy s/p cardiac arrest in 05/2015 no acute changes Pt has non spontaneous movements. Continue tube feeds- goal of 60ml/hr, feedings held at night due to fluid overload Respiratory failure Trach in place, continue daily monitoring for secretions. No change in management at this time. Continue with aggressive suctioning multiple times a day per respiratory therapist. Monitor for signs of respiratory distress Thick secretions Duoneb 3ml INH Q6 and Mucomyst 4ml INH Q6H Scopolamine 1 patch TD Q3D [facility] Repeat CXR on 05/28/17: linear increased consolidative changes in the right mid- lung zone and left lung base which may represent atelectasis and/or infiltrate. Questionable trace left pleural effusion. moderate venous congestion. cardiomegaly. degenerative changes in the spine and shoulders 09/09: Secretions suctioned at bedside Leukocytosis secondary to UTI. Resolved 08/10: WBC 8.2 afebrile Meropenem (started 07/22) - per Dr. Armstrong continue for a total of 2 weeks - Discontinued 08/05/17 ID consult: Dr. Armstrong --> help appreciated Urinary retention 07/21: NS stopped because tube feeds restarted 07/20: Urine dark in color, monitor, continue NS at 50 ml per hour 07/07/17: Catheter flushed, patient output approx. 500mL within one hour post flush. 06/27/17: Continue bladder massages to aid in voiding. 06/25/17: Patient voids with movement. Continue bladder massages to aid in voiding. 06/23/17: Patient will need to have daily bladder massage to allow for complete voiding 06/17/17: Nursing communication placed in: straight catherization with bladder scan> 100ml 06/08: urinary retention yesterday, was given 40mg lasix iv and patient was able to urinate through condom baker Take note condom cath not always securely in place so Is and Os are approximate as patient does wet bed Ordered- new condom catheter on 05/22/17 Flomax 0.4mg PEG daily Proscar 5mg PEG daily continue Bethanecol 50mg PEG TID- started after persistent retention and found to be effective. monitor I's and O's - I/O: 780/350 Check bladder scan for residual urine three times weekly Hypokalemia K+ on 08/10: 4.2 Sacral ulcer Healed Cont with offloading/cushioning/turning Continue frequent turning, protective ointment and skin checks. History of coronary artery disease s/p cardiac stents on 06/13/15 Cont ASA 81mg via PEG daily Cont Coreg 3.125mg PEG BID Cont Plavix 75 mg PEG daily Seizures Continue Keppra 500mg PEG BID for seizure prophylaxis Monitor for activity Lower extremity edema Improved SCDs in place Pressure ulcer boots on b/l Continue to monitor Prophylactic measure Pepcid 20 mg PEG BID Lovenox 40mg SC daily SCDs and offloading boots continue to turn and reposition q2hrs Continue to monitor medication administrations and clinical presentation weekly labs. vasoline ointment applied to feet prn to prevent hyperkeratosis Please hold feeding from 10pm-6am, placed into nursing communication Vitamin A & D for lips There is no update at this time. <Jeison Moore - Last Filed: 09/27/17 10:02> Objective - Vital Signs/Intake and Output Vital Signs (last 24 hours): Temp Pulse Resp BP Pulse Ox 98.2 F 71 20 118/84 98 09/20/17 08:28 09/20/17 08:28 09/20/17 08:28 09/20/17 08:28 09/20/17 08:28 Intake and Output: 09/20/17 09/20/17 06:59 18:59 Intake Total 1560 Output Total 1200 Balance 360 - Medications Medications: Current Medications Acetylcysteine (Acetylcysteine 20%) 4 ml INH RQ8 [facility] Last Admin: 09/20/17 07:43 Dose: 4 ml Albuterol/Ipratropium (Duoneb 3 Mg/0.5 Mg (3 Ml) Ud) 3 ml INH RQ8 [facility] Last Admin: 09/20/17 07:43 Dose: 3 ml Aspirin (Aspirin Chewable) 81 mg PEG DAILY [facility] Last Admin: 09/20/17 10:32 Dose: 81 mg Carvedilol (Coreg) 3.125 mg PEG BID [facility] Last Admin: 09/20/17 10:31 Dose: 3.125 mg Clopidogrel Bisulfate (Plavix) 75 mg PEG DAILY [facility] Last Admin: 09/20/17 10:32 Dose: 75 mg Enoxaparin Sodium (Lovenox) 30 mg SC DAILY [facility] Last Admin: 09/20/17 10:32 Dose: 30 mg Famotidine (Pepcid) 20 mg PEG DAILY [facility] Last Admin: 09/20/17 10:31 Dose: 20 mg Finasteride (Proscar) 5 mg PEG DAILY [facility] Last Admin: 09/20/17 10:32 Dose: 5 mg Hydrocortisone (Cortizone 1% Cream) 0 gm TOP BID [facility] Stop: 09/21/17 11:31 Last Admin: 09/20/17 10:32 Dose: 1 applic Levetiracetam (Keppra) 500 mg PEG BID [facility] Last Admin: 09/20/17 10:32 Dose: 500 mg Nystatin (Nystatin Oral Susp) 5 ml PO QID [facility] Last Admin: 09/20/17 13:56 Dose: 5 ml Saccharomyces Boulardii (Florastor) 250 mg PEG DAILY [facility] Last Admin: 09/20/17 10:31 Dose: 250 mg Scopolamine (Transderm-Scop) 1 patch TD Q3D [facility] Last Admin: 09/18/17 17:43 Dose: 1 patch Tamsulosin HCl (Flomax) 0.4 mg PEG DAILY [facility] Last Admin: 09/20/17 10:36 Dose: 0.4 mg - Labs Labs: 09/14/17 10:53 09/14/17 08:20 PT 10.6 SECONDS (9.7-12.2) 11/24/15 14:10 INR 1.0 11/24/15 14:10 APTT 25 SECONDS (21-34) 11/24/15 14:10 Attending/Attestation - Attestation I have personally seen and examined this patient.: Yes I have fully participated in the care of the patient.: Yes I have reviewed all pertinent clinical information, including history, physical exam and plan: Yes Notes (Text): Patient was seen and examined lying comfortable without distress I agree with the resident's documentation of the assessment and plan
[2017-09-20] MEDS: Saccharomyces Boulardi 250 mg Cap PEG SCH (10:31)
[2017-09-20] MEDS: Hydrocortisone 1% Cream (30 GM) TOP SCH ×2 (10:32→17:43)
[2017-09-20] MEDS: Nystatin 100,000 Units/ml Oral Susp 5 ml UD PO SCH ×4 (10:32→21:48)
[2017-09-20] MEDS: Enoxaparin 30 mg Syringe SC SCH (10:32)
[2017-09-20] MEDS: levETIRAcetam 100 mg/ml (5ml) Oral Syringe PEG SCH ×2 (10:32→17:41)
[2017-09-21] MEDS: Acetylcysteine 20% Inhal Soln (4ml) INH SCH ×4 (00:41→23:51)
--- NOTE | 2017-09-21 07:27 | CP.PCM.PN ---
<Ben Martell R - Last Filed: 09/21/17 07:25> Subjective - Date & Time of Evaluation Date of Evaluation: 09/21/17 Time of Evaluation: 07:25 - Subjective Subjective: Medicine Progress Note HPI: Patient was seen and examined at bedside. ROS unattainable due to anoxic brain injury Objective - Vital Signs/Intake and Output Vital Signs (last 24 hours): Temp Pulse Resp BP Pulse Ox 98.1 F 79 20 119/78 98 09/20/17 23:28 09/20/17 23:28 09/20/17 23:28 09/20/17 23:28 09/20/17 23:28 Intake and Output: 09/21/17 09/21/17 06:59 18:59 Intake Total 1560 Output Total 1150 Balance 410 - Medications Medications: Current Medications Acetylcysteine (Acetylcysteine 20%) 4 ml INH RQ8 [facility] Last Admin: 09/21/17 00:41 Dose: Not Given Aspirin (Aspirin Chewable) 81 mg PEG DAILY [facility] Last Admin: 09/20/17 10:32 Dose: 81 mg Carvedilol (Coreg) 3.125 mg PEG BID [facility] Last Admin: 09/20/17 17:44 Dose: 3.125 mg Clopidogrel Bisulfate (Plavix) 75 mg PEG DAILY [facility] Last Admin: 09/20/17 10:32 Dose: 75 mg Enoxaparin Sodium (Lovenox) 30 mg SC DAILY [facility] Last Admin: 09/20/17 10:32 Dose: 30 mg Famotidine (Pepcid) 20 mg PEG DAILY [facility] Last Admin: 09/20/17 10:31 Dose: 20 mg Finasteride (Proscar) 5 mg PEG DAILY [facility] Last Admin: 09/20/17 10:32 Dose: 5 mg Hydrocortisone (Cortizone 1% Cream) 0 gm TOP BID [facility] Stop: 09/21/17 11:31 Last Admin: 09/20/17 17:43 Dose: 1 applic Levetiracetam (Keppra) 500 mg PEG BID [facility] Last Admin: 09/20/17 17:41 Dose: 500 mg Nystatin (Nystatin Oral Susp) 5 ml PO QID [facility] Last Admin: 09/20/17 21:48 Dose: 5 ml Saccharomyces Boulardii (Florastor) 250 mg PEG DAILY [facility] Last Admin: 09/20/17 10:31 Dose: 250 mg Scopolamine (Transderm-Scop) 1 patch TD Q3D [facility] Last Admin: 09/18/17 17:43 Dose: 1 patch Tamsulosin HCl (Flomax) 0.4 mg PEG DAILY [facility] Last Admin: 09/20/17 10:36 Dose: 0.4 mg - Labs Labs: 09/14/17 10:53 09/14/17 08:20 PT 10.6 SECONDS (9.7-12.2) 11/24/15 14:10 INR 1.0 11/24/15 14:10 APTT 25 SECONDS (21-34) 11/24/15 14:10 - Additional Findings Additional findings: - Constitutional Appears: Chronically Ill - Additional Findings Additional findings: - Head Exam Head Exam: ATRAUMATIC, NORMAL INSPECTION - Eye Exam Eye Exam: absent: EOMI - ENT Exam ENT Exam: Mucous Membranes Moist - Neck Exam Neck Exam: Normal Inspection - Respiratory Exam Respiratory Exam: NORMAL BREATHING PATTERN. absent: Clear to Ausculation Bilateral Additional comments: trach collar in place - Cardiovascular Exam Cardiovascular Exam: REGULAR RHYTHM. absent: Bradycardia, Tachycardia - GI/Abdominal Exam GI & Abdominal Exam: Soft - Exam Additional comments: baker condom in place - Extremities Exam Extremities Exam: Normal Inspection - Neurological Exam Neurological Exam: Altered - Skin Skin Exam: Dry, Intact, Normal Color, Warm Assessment and Plan - Assessment and Plan (Free Text) Assessment: Anoxic encephalopathy s/p cardiac arrest in 05/2015 no acute changes Pt has non spontaneous movements. Continue tube feeds- goal of 60ml/hr, feedings held at night due to fluid overload Respiratory failure Trach in place, continue daily monitoring for secretions. No change in management at this time. Continue with aggressive suctioning multiple times a day per respiratory therapist. Monitor for signs of respiratory distress Thick secretions Duoneb 3ml INH Q6 and Mucomyst 4ml INH Q6H Scopolamine 1 patch TD Q3D [facility] Repeat CXR on 05/28/17: linear increased consolidative changes in the right mid- lung zone and left lung base which may represent atelectasis and/or infiltrate. Questionable trace left pleural effusion. moderate venous congestion. cardiomegaly. degenerative changes in the spine and shoulders 09/09: Secretions suctioned at bedside Leukocytosis secondary to UTI. Resolved 08/10: WBC 8.2 afebrile Meropenem (started 07/22) - per Dr. Armstrong continue for a total of 2 weeks - Discontinued 08/05/17 ID consult: Dr. Armstrong --> help appreciated Urinary retention 07/21: NS stopped because tube feeds restarted 07/20: Urine dark in color, monitor, continue NS at 50 ml per hour 07/07/17: Catheter flushed, patient output approx. 500mL within one hour post flush. 06/27/17: Continue bladder massages to aid in voiding. 06/25/17: Patient voids with movement. Continue bladder massages to aid in voiding. 06/23/17: Patient will need to have daily bladder massage to allow for complete voiding 06/17/17: Nursing communication placed in: straight catherization with bladder scan> 100ml 06/08: urinary retention yesterday, was given 40mg lasix iv and patient was able to urinate through condom baker Take note condom cath not always securely in place so Is and Os are approximate as patient does wet bed Ordered- new condom catheter on 05/22/17 Flomax 0.4mg PEG daily Proscar 5mg PEG daily continue Bethanecol 50mg PEG TID- started after persistent retention and found to be effective. monitor I's and O's - I/O: 780/350 Check bladder scan for residual urine three times weekly Hypokalemia, resolved K+ on 08/10: 4.2 Sacral ulcer Healed Cont with offloading/cushioning/turning Continue frequent turning, protective ointment and skin checks. History of coronary artery disease s/p cardiac stents on 06/13/15 Cont ASA 81mg via PEG daily Cont Coreg 3.125mg PEG BID Cont Plavix 75 mg PEG daily Seizures Continue Keppra 500mg PEG BID for seizure prophylaxis Monitor for activity Lower extremity edema Improved SCDs in place Pressure ulcer boots on b/l Continue to monitor Prophylactic measure Pepcid 20 mg PEG BID Lovenox 40mg SC daily SCDs and offloading boots continue to turn and reposition q2hrs Continue to monitor medication administrations and clinical presentation weekly labs. vasoline ointment applied to feet prn to prevent hyperkeratosis Please hold feeding from 10pm-6am, placed into nursing communication Vitamin A & D for lips There is no update at this time. <Amandeep Chavis H - Last Filed: 09/21/17 16:07> Objective - Vital Signs/Intake and Output Vital Signs (last 24 hours): Temp Pulse Resp BP Pulse Ox 97.6 F 74 20 107/74 100 09/21/17 08:13 09/21/17 08:13 09/21/17 08:13 09/21/17 08:13 09/21/17 08:13 Intake and Output: 09/21/17 09/21/17 06:59 18:59 Intake Total 1560 780 Output Total 1150 400 Balance 410 380 - Medications Medications: Current Medications Acetylcysteine (Acetylcysteine 20%) 4 ml INH RQ8 [facility] Last Admin: 09/21/17 15:51 Dose: 4 ml Albuterol/Ipratropium (Duoneb 3 Mg/0.5 Mg (3 Ml) Ud) 3 ml INH RQ8 [facility] Last Admin: 09/21/17 15:51 Dose: 3 ml Albuterol/Ipratropium (Duoneb 3 Mg/0.5 Mg (3 Ml) Ud) 3 ml INH RQ4 PRN PRN Reason: Wheezing Aspirin (Aspirin Chewable) 81 mg PEG DAILY [facility] Last Admin: 09/21/17 11:30 Dose: 81 mg Carvedilol (Coreg) 3.125 mg PEG BID [facility] Last Admin: 09/21/17 11:31 Dose: 3.125 mg Clopidogrel Bisulfate (Plavix) 75 mg PEG DAILY [facility] Last Admin: 09/21/17 11:29 Dose: 75 mg Enoxaparin Sodium (Lovenox) 30 mg SC DAILY [facility] Last Admin: 09/21/17 11:31 Dose: 30 mg Famotidine (Pepcid) 20 mg PEG DAILY [facility] Last Admin: 09/21/17 11:30 Dose: 20 mg Finasteride (Proscar) 5 mg PEG DAILY [facility] Last Admin: 09/21/17 11:34 Dose: 5 mg Levetiracetam (Keppra) 500 mg PEG BID [facility] Last Admin: 09/21/17 11:34 Dose: 500 mg Nystatin (Nystatin Oral Susp) 5 ml PO QID [facility] Last Admin: 09/21/17 14:15 Dose: 5 ml Saccharomyces Boulardii (Florastor) 250 mg PEG DAILY [facility] Last Admin: 09/21/17 11:29 Dose: 250 mg Scopolamine (Transderm-Scop) 1 patch TD Q3D [facility] Last Admin: 09/18/17 17:43 Dose: 1 patch Tamsulosin HCl (Flomax) 0.4 mg PEG DAILY [facility] Last Admin: 09/21/17 11:30 Dose: 0.4 mg - Labs Labs: 09/21/17 08:18 09/21/17 08:18 PT 10.6 SECONDS (9.7-12.2) 11/24/15 14:10 INR 1.0 11/24/15 14:10 APTT 25 SECONDS (21-34) 11/24/15 14:10 Assessment and Plan (1) Prophylactic measure Status: Acute (2) Anoxic encephalopathy Status: Chronic (3) STEMI (ST elevation myocardial infarction) Status: Acute (4) Cardiac arrest Status: Acute (5) Seizures Status: Acute (6) Respiratory failure Status: Chronic Attending/Attestation - Attestation I have personally seen and examined this patient.: Yes I have fully participated in the care of the patient.: Yes I have reviewed all pertinent clinical information, including history, physical exam and plan: Yes Notes (Text): 09/21/17 16:06 Medical Attending: Agree with the above note by the resident Today we inspected the patient's sacral area - there is some skin abrasion and thinning - there was already cream in the area placed. Otherwise NOT a broken or open wound Situation overall not changed Amandeep Chavis
[2017-09-21 08:27] LABS: BASO # 0.1 K/uL (0.0-0.2); BASO % 0.6 % (0.0-2.0); EOS # 0.4 K/uL (0.0-0.7); EOS % 3.5 % (0.0-4.0); HEMOGLOBIN 11.1 g/dL (12.0-18.0); LYMPH # 2.3 K/uL (1.0-4.3); LYMPH % 22.2 % (20.0-40.0); MEAN CORPUSCULAR HEMOGLOBIN 29.3 pg (27.0-31.0); MEAN CORPUSCULAR HGB CONC 33.3 g/dL (33.0-37.0); MEAN PLATELET VOLUME 8.2 fL (7.2-11.7); MONO # 0.9 K/uL (0.0-0.8); MONO % 8.2 % (0.0-10.0); NEUT # 6.9 K/uL (1.8-7.0); NEUT % 65.5 % (50.0-75.0); NRBC % 0.1 % (0.0-2.0); RBC 3.79 Mil/uL (4.40-5.90); RED CELL DISTRIBUTION WIDTH 15.8 % (11.5-14.5); WHITE BLOOD COUNT 10.6 K/uL (4.8-10.8)
[2017-09-21 08:51] LABS: ALBUMIN 3.6 g/dL (3.5-5.0)
[2017-09-21 08:54] LABS: ALB/GLOB RATIO 0.9 (1.0-2.1); ALT/SGPT 37 U/L (21-72); AST/SGOT 23 U/L (17-59); BLOOD UREA NITROGEN 14 mg/dL (9-20); CALCIUM 8.3 mg/dl (8.6-10.4); GFR NON-AFRICAN AMERICAN > 60
[2017-09-21] MEDS: Albuterol-Ipratrop 3 mg / 0.5 (3 ml) UD INH SCH ×3 (09:54→23:51)
[2017-09-21] MEDS: Saccharomyces Boulardi 250 mg Cap PEG SCH (11:29)
[2017-09-21] MEDS: Nystatin 100,000 Units/ml Oral Susp 5 ml UD PO SCH ×5 (11:31→21:59)
[2017-09-21] MEDS: Enoxaparin 30 mg Syringe SC SCH (11:31)
[2017-09-21] MEDS: Hydrocortisone 1% Cream (30 GM) TOP SCH (11:32)
[2017-09-21] MEDS: levETIRAcetam 100 mg/ml (5ml) Oral Syringe PEG SCH ×2 (11:34→18:01)
--- NOTE | 2017-09-22 06:59 | CP.PCM.PN ---
<Ben Martell - Last Filed: 09/22/17 06:57> Subjective - Date & Time of Evaluation Date of Evaluation: 09/22/17 Time of Evaluation: 06:57 - Subjective Subjective: PGY-[address] Chavis. HPI: Patient was seen and examined at bedside. ROS unattainable due to anoxic brain injury. Objective - Vital Signs/Intake and Output Vital Signs (last 24 hours): Temp Pulse Resp BP Pulse Ox 98.2 F 90 20 114/77 97 09/22/17 00:00 09/22/17 00:00 09/22/17 00:00 09/22/17 00:00 09/22/17 00:00 Intake and Output: 09/21/17 09/22/17 18:59 06:59 Intake Total 780 1760 Output Total 400 900 Balance 380 860 - Medications Medications: Current Medications Acetylcysteine (Acetylcysteine 20%) 4 ml INH RQ8 [facility] Last Admin: 09/21/17 23:51 Dose: 4 ml Albuterol/Ipratropium (Duoneb 3 Mg/0.5 Mg (3 Ml) Ud) 3 ml INH RQ8 [facility] Last Admin: 09/21/17 23:51 Dose: 3 ml Albuterol/Ipratropium (Duoneb 3 Mg/0.5 Mg (3 Ml) Ud) 3 ml INH RQ4 PRN PRN Reason: Wheezing Aspirin (Aspirin Chewable) 81 mg PEG DAILY [facility] Last Admin: 09/21/17 11:30 Dose: 81 mg Carvedilol (Coreg) 3.125 mg PEG BID [facility] Last Admin: 09/21/17 18:01 Dose: 3.125 mg Clopidogrel Bisulfate (Plavix) 75 mg PEG DAILY [facility] Last Admin: 09/21/17 11:29 Dose: 75 mg Enoxaparin Sodium (Lovenox) 30 mg SC DAILY [facility] Last Admin: 09/21/17 11:31 Dose: 30 mg Famotidine (Pepcid) 20 mg PEG DAILY [facility] Last Admin: 09/21/17 11:30 Dose: 20 mg Finasteride (Proscar) 5 mg PEG DAILY [facility] Last Admin: 09/21/17 11:34 Dose: 5 mg Levetiracetam (Keppra) 500 mg PEG BID [facility] Last Admin: 09/21/17 18:01 Dose: 500 mg Nystatin (Nystatin Oral Susp) 5 ml PO QID [facility] Last Admin: 09/21/17 21:59 Dose: 5 ml Saccharomyces Boulardii (Florastor) 250 mg PEG DAILY [facility] Last Admin: 09/21/17 11:29 Dose: 250 mg Scopolamine (Transderm-Scop) 1 patch TD Q3D [facility] Last Admin: 09/21/17 18:04 Dose: 1 patch Tamsulosin HCl (Flomax) 0.4 mg PEG DAILY [facility] Last Admin: 09/21/17 11:30 Dose: 0.4 mg - Labs Labs: 09/21/17 08:18 09/21/17 08:18 PT 10.6 SECONDS (9.7-12.2) 11/24/15 14:10 INR 1.0 11/24/15 14:10 APTT 25 SECONDS (21-34) 11/24/15 14:10 - Additional Findings Additional findings: - Constitutional Appears: Chronically Ill - Additional Findings Additional findings: - Head Exam Head Exam: ATRAUMATIC, NORMAL INSPECTION - Eye Exam Eye Exam: absent: EOMI - ENT Exam ENT Exam: Mucous Membranes Moist - Neck Exam Neck Exam: Normal Inspection - Respiratory Exam Respiratory Exam: NORMAL BREATHING PATTERN. absent: Clear to Ausculation Bilateral Additional comments: trach collar in place - Cardiovascular Exam Cardiovascular Exam: REGULAR RHYTHM. absent: Bradycardia, Tachycardia - GI/Abdominal Exam GI & Abdominal Exam: Soft - Exam Additional comments: baker condom in place - Extremities Exam Extremities Exam: Normal Inspection - Neurological Exam Neurological Exam: Altered - Skin Skin Exam: Dry, Intact, Normal Color, Warm Assessment and Plan - Assessment and Plan (Free Text) Assessment: Anoxic encephalopathy s/p cardiac arrest in 05/2015 no acute changes Pt has non spontaneous movements. Continue tube feeds- goal of 60ml/hr, feedings held at night due to fluid overload Respiratory failure Trach in place, continue daily monitoring for secretions. No change in management at this time. Continue with aggressive suctioning multiple times a day per respiratory therapist. Monitor for signs of respiratory distress Thick secretions Duoneb 3ml INH Q6 and Mucomyst 4ml INH Q6H Scopolamine 1 patch TD Q3D [facility] Repeat CXR on 05/28/17: linear increased consolidative changes in the right mid- lung zone and left lung base which may represent atelectasis and/or infiltrate. Questionable trace left pleural effusion. moderate venous congestion. cardiomegaly. degenerative changes in the spine and shoulders 09/09: Secretions suctioned at bedside Leukocytosis secondary to UTI. Resolved 08/10: WBC 8.2 afebrile Meropenem (started 07/22) - per Dr. Armstrong continue for a total of 2 weeks - Discontinued 08/05/17 ID consult: Dr. Armstrong --> help appreciated Urinary retention 07/21: NS stopped because tube feeds restarted 07/20: Urine dark in color, monitor, continue NS at 50 ml per hour 07/07/17: Catheter flushed, patient output approx. 500mL within one hour post flush. 06/27/17: Continue bladder massages to aid in voiding. 06/25/17: Patient voids with movement. Continue bladder massages to aid in voiding. 06/23/17: Patient will need to have daily bladder massage to allow for complete voiding 06/17/17: Nursing communication placed in: straight catherization with bladder scan> 100ml 06/08: urinary retention yesterday, was given 40mg lasix iv and patient was able to urinate through condom baker Take note condom cath not always securely in place so Is and Os are approximate as patient does wet bed Ordered- new condom catheter on 05/22/17 Flomax 0.4mg PEG daily Proscar 5mg PEG daily continue Bethanecol 50mg PEG TID- started after persistent retention and found to be effective. monitor I's and O's - I/O: 780/350 Check bladder scan for residual urine three times weekly Hypokalemia, resolved K+ on 08/10: 4.2 Sacral ulcer Healed Cont with offloading/cushioning/turning Continue frequent turning, protective ointment and skin checks. History of coronary artery disease s/p cardiac stents on 06/13/15 Cont ASA 81mg via PEG daily Cont Coreg 3.125mg PEG BID Cont Plavix 75 mg PEG daily Seizures Continue Keppra 500mg PEG BID for seizure prophylaxis Monitor for activity Lower extremity edema Improved SCDs in place Pressure ulcer boots on b/l Continue to monitor Prophylactic measure Pepcid 20 mg PEG BID Lovenox 40mg SC daily SCDs and offloading boots continue to turn and reposition q2hrs Continue to monitor medication administrations and clinical presentation weekly labs. vasoline ointment applied to feet prn to prevent hyperkeratosis Please hold feeding from 10pm-6am, placed into nursing communication Vitamin A & D for lips There is no update at this time. <Amandeep Chavis H - Last Filed: 09/22/17 15:22> Objective - Vital Signs/Intake and Output Vital Signs (last 24 hours): Temp Pulse Resp BP Pulse Ox 98.8 F 78 20 123/78 97 09/22/17 09:00 09/22/17 09:00 09/22/17 09:00 09/22/17 09:00 09/22/17 09:00 Intake and Output: 09/22/17 09/22/17 06:59 18:59 Intake Total 1760 780 Output Total 900 Balance 860 780 - Medications Medications: Current Medications Acetylcysteine (Acetylcysteine 20%) 4 ml INH RQ8 [facility] Last Admin: 09/22/17 07:37 Dose: 4 ml Albuterol/Ipratropium (Duoneb 3 Mg/0.5 Mg (3 Ml) Ud) 3 ml INH RQ8 [facility] Last Admin: 09/22/17 07:37 Dose: 3 ml Albuterol/Ipratropium (Duoneb 3 Mg/0.5 Mg (3 Ml) Ud) 3 ml INH RQ4 PRN PRN Reason: Wheezing Aspirin (Aspirin Chewable) 81 mg PEG DAILY [facility] Last Admin: 09/22/17 09:32 Dose: 81 mg Carvedilol (Coreg) 3.125 mg PEG BID [facility] Last Admin: 09/22/17 09:32 Dose: 3.125 mg Clopidogrel Bisulfate (Plavix) 75 mg PEG DAILY [facility] Last Admin: 09/22/17 09:32 Dose: 75 mg Enoxaparin Sodium (Lovenox) 30 mg SC DAILY [facility] Last Admin: 09/22/17 09:32 Dose: 30 mg Famotidine (Pepcid) 20 mg PEG DAILY [facility] Last Admin: 09/22/17 09:32 Dose: 20 mg Finasteride (Proscar) 5 mg PEG DAILY [facility] Last Admin: 09/22/17 09:33 Dose: 5 mg Levetiracetam (Keppra) 500 mg PEG BID [facility] Last Admin: 09/22/17 09:33 Dose: 500 mg Nystatin (Nystatin Oral Susp) 5 ml PO QID [facility] Last Admin: 09/22/17 13:48 Dose: Not Given Saccharomyces Boulardii (Florastor) 250 mg PEG DAILY [facility] Last Admin: 09/22/17 09:32 Dose: 250 mg Scopolamine (Transderm-Scop) 1 patch TD Q3D [facility] Last Admin: 09/21/17 18:04 Dose: 1 patch Tamsulosin HCl (Flomax) 0.4 mg PEG DAILY [facility] Last Admin: 09/22/17 09:32 Dose: 0.4 mg - Labs Labs: 09/21/17 08:18 09/21/17 08:18 PT 10.6 SECONDS (9.7-12.2) 11/24/15 14:10 INR 1.0 11/24/15 14:10 APTT 25 SECONDS (21-34) 11/24/15 14:10 Assessment and Plan (1) Prophylactic measure Status: Acute (2) Anoxic encephalopathy Status: Chronic (3) STEMI (ST elevation myocardial infarction) Status: Acute (4) Cardiac arrest Status: Acute (5) Seizures Status: Acute (6) Respiratory failure Status: Chronic Attending/Attestation - Attestation I have personally seen and examined this patient.: Yes I have fully participated in the care of the patient.: Yes I have reviewed all pertinent clinical information, including history, physical exam and plan: Yes Notes (Text): 09/22/17 15:21 Medical Attending: Patient was seen and examined by me. Agree with the above note by the resident The patient's situation is not changed from previous Amandeep Chavis
[2017-09-22] MEDS: Acetylcysteine 20% Inhal Soln (4ml) INH SCH ×3 (07:37→23:48)
[2017-09-22] MEDS: Albuterol-Ipratrop 3 mg / 0.5 (3 ml) UD INH SCH ×3 (07:37→23:48)
[2017-09-22] MEDS: Saccharomyces Boulardi 250 mg Cap PEG SCH (09:32)
[2017-09-22] MEDS: Enoxaparin 30 mg Syringe SC SCH (09:32)
[2017-09-22] MEDS: levETIRAcetam 100 mg/ml (5ml) Oral Syringe PEG SCH ×2 (09:33→18:31)
[2017-09-22] MEDS: Nystatin 100,000 Units/ml Oral Susp 5 ml UD PO SCH ×4 (09:45→21:56)
--- NOTE | 2017-09-23 06:58 | CP.PCM.PN ---
Subjective - Date & Time of Evaluation Date of Evaluation: 09/23/17 Time of Evaluation: 06:56 - Subjective Subjective: PGY-[address] Chavis. HPI: Patient was seen and examined at bedside. ROS unattainable due to anoxic brain injury. Objective - Vital Signs/Intake and Output Vital Signs (last 24 hours): Temp Pulse Resp BP Pulse Ox 97.8 F 83 20 128/79 98 09/23/17 00:00 09/23/17 00:00 09/23/17 00:00 09/23/17 00:00 09/23/17 00:00 Intake and Output: 09/22/17 09/23/17 18:59 06:59 Intake Total 780 780 Output Total 400 Balance 780 380 - Medications Medications: Current Medications Acetylcysteine (Acetylcysteine 20%) 4 ml INH RQ8 [facility] Last Admin: 09/22/17 23:48 Dose: 4 ml Albuterol/Ipratropium (Duoneb 3 Mg/0.5 Mg (3 Ml) Ud) 3 ml INH RQ8 [facility] Last Admin: 09/22/17 23:48 Dose: 3 ml Albuterol/Ipratropium (Duoneb 3 Mg/0.5 Mg (3 Ml) Ud) 3 ml INH RQ4 PRN PRN Reason: Wheezing Aspirin (Aspirin Chewable) 81 mg PEG DAILY [facility] Last Admin: 09/22/17 09:32 Dose: 81 mg Carvedilol (Coreg) 3.125 mg PEG BID [facility] Last Admin: 09/22/17 18:32 Dose: 3.125 mg Clopidogrel Bisulfate (Plavix) 75 mg PEG DAILY [facility] Last Admin: 09/22/17 09:32 Dose: 75 mg Enoxaparin Sodium (Lovenox) 30 mg SC DAILY [facility] Last Admin: 09/22/17 09:32 Dose: 30 mg Famotidine (Pepcid) 20 mg PEG DAILY [facility] Last Admin: 09/22/17 09:32 Dose: 20 mg Finasteride (Proscar) 5 mg PEG DAILY [facility] Last Admin: 09/22/17 09:33 Dose: 5 mg Levetiracetam (Keppra) 500 mg PEG BID [facility] Last Admin: 09/22/17 18:31 Dose: 500 mg Nystatin (Nystatin Oral Susp) 5 ml PO QID [facility] Last Admin: 09/22/17 21:56 Dose: 5 ml Saccharomyces Boulardii (Florastor) 250 mg PEG DAILY [facility] Last Admin: 09/22/17 09:32 Dose: 250 mg Scopolamine (Transderm-Scop) 1 patch TD Q3D [facility] Last Admin: 09/21/17 18:04 Dose: 1 patch Tamsulosin HCl (Flomax) 0.4 mg PEG DAILY [facility] Last Admin: 09/22/17 09:32 Dose: 0.4 mg - Labs Labs: 09/21/17 08:18 09/21/17 08:18 PT 10.6 SECONDS (9.7-12.2) 11/24/15 14:10 INR 1.0 11/24/15 14:10 APTT 25 SECONDS (21-34) 11/24/15 14:10 - Additional Findings Additional findings: - Constitutional Appears: Chronically Ill - Additional Findings Additional findings: - Head Exam Head Exam: ATRAUMATIC, NORMAL INSPECTION - Eye Exam Eye Exam: absent: EOMI - ENT Exam ENT Exam: Mucous Membranes Moist - Neck Exam Neck Exam: Normal Inspection - Respiratory Exam Respiratory Exam: NORMAL BREATHING PATTERN. absent: Clear to Ausculation Bilateral Additional comments: trach collar in place - Cardiovascular Exam Cardiovascular Exam: REGULAR RHYTHM. absent: Bradycardia, Tachycardia - GI/Abdominal Exam GI & Abdominal Exam: Soft - Exam Additional comments: baker condom in place - Extremities Exam Extremities Exam: Normal Inspection - Neurological Exam Neurological Exam: Altered - Skin Skin Exam: Dry, Intact, Normal Color, Warm Assessment and Plan - Assessment and Plan (Free Text) Assessment: Anoxic encephalopathy s/p cardiac arrest in 05/2015 no acute changes Pt has non spontaneous movements. Continue tube feeds- goal of 60ml/hr, feedings held at night due to fluid overload Respiratory failure Trach in place, continue daily monitoring for secretions. No change in management at this time. Continue with aggressive suctioning multiple times a day per respiratory therapist. Monitor for signs of respiratory distress Thick secretions Duoneb 3ml INH Q6 and Mucomyst 4ml INH Q6H Scopolamine 1 patch TD Q3D [facility] Repeat CXR on 05/28/17: linear increased consolidative changes in the right mid- lung zone and left lung base which may represent atelectasis and/or infiltrate. Questionable trace left pleural effusion. moderate venous congestion. cardiomegaly. degenerative changes in the spine and shoulders 09/09: Secretions suctioned at bedside Leukocytosis secondary to UTI. Resolved 08/10: WBC 8.2 afebrile Meropenem (started 07/22) - per Dr. Armstrong continue for a total of 2 weeks - Discontinued 08/05/17 ID consult: Dr. Armstrong --> help appreciated Urinary retention 07/21: NS stopped because tube feeds restarted 07/20: Urine dark in color, monitor, continue NS at 50 ml per hour 07/07/17: Catheter flushed, patient output approx. 500mL within one hour post flush. 06/27/17: Continue bladder massages to aid in voiding. 06/25/17: Patient voids with movement. Continue bladder massages to aid in voiding. 06/23/17: Patient will need to have daily bladder massage to allow for complete voiding 06/17/17: Nursing communication placed in: straight catherization with bladder scan> 100ml 06/08: urinary retention yesterday, was given 40mg lasix iv and patient was able to urinate through condom baker Take note condom cath not always securely in place so Is and Os are approximate as patient does wet bed Ordered- new condom catheter on 05/22/17 Flomax 0.4mg PEG daily Proscar 5mg PEG daily continue Bethanecol 50mg PEG TID- started after persistent retention and found to be effective. monitor I's and O's - I/O: 780/350 Check bladder scan for residual urine three times weekly Hypokalemia, resolved K+ on 08/10: 4.2 Sacral ulcer Healed Cont with offloading/cushioning/turning Continue frequent turning, protective ointment and skin checks. History of coronary artery disease s/p cardiac stents on 06/13/15 Cont ASA 81mg via PEG daily Cont Coreg 3.125mg PEG BID Cont Plavix 75 mg PEG daily Seizures Continue Keppra 500mg PEG BID for seizure prophylaxis Monitor for activity Lower extremity edema Improved SCDs in place Pressure ulcer boots on /l Continue to monitor Prophylactic measure Pepcid 20 mg PEG BID Lovenox 40mg SC daily SCDs and offloading boots continue to turn and reposition q2hrs Continue to monitor medication administrations and clinical presentation weekly labs. vasoline ointment applied to feet prn to prevent hyperkeratosis Please hold feeding from 10pm-6am, placed into nursing communication Vitamin A & D for lips There is no update at this time.
[2017-09-23] MEDS: Albuterol-Ipratrop 3 mg / 0.5 (3 ml) UD INH SCH ×2 (08:01→16:39)
[2017-09-23] MEDS: Acetylcysteine 20% Inhal Soln (4ml) INH SCH ×2 (08:01→16:39)
[2017-09-23] MEDS: levETIRAcetam 100 mg/ml (5ml) Oral Syringe PEG SCH ×2 (10:25→18:25)
[2017-09-23] MEDS: Saccharomyces Boulardi 250 mg Cap PEG SCH (10:25)
[2017-09-23] MEDS: Enoxaparin 30 mg Syringe SC SCH (10:25)
[2017-09-23] MEDS: Nystatin 100,000 Units/ml Oral Susp 5 ml UD PO SCH ×4 (10:26→22:11)
[2017-09-24] MEDS: Albuterol-Ipratrop 3 mg / 0.5 (3 ml) UD INH SCH ×3 (01:02→16:51)
[2017-09-24] MEDS: Acetylcysteine 20% Inhal Soln (4ml) INH SCH ×3 (01:02→16:51)
--- NOTE | 2017-09-24 06:54 | CP.PCM.PN ---
<Ben Martell - Last Filed: 09/24/17 06:53> Subjective - Date & Time of Evaluation Date of Evaluation: 09/24/17 Time of Evaluation: 06:53 - Subjective Subjective: PGY-[address] Chavis. HPI: Patient was seen and examined at bedside. ROS unattainable due to anoxic brain injury. Objective - Vital Signs/Intake and Output Vital Signs (last 24 hours): Temp Pulse Resp BP Pulse Ox 98.1 F 78 22 123/78 98 09/23/17 23:40 09/23/17 23:40 09/23/17 23:40 09/23/17 23:40 09/23/17 23:40 Intake and Output: 09/23/17 09/24/17 18:59 06:59 Intake Total 1560 1560 Output Total 650 880 Balance 910 680 - Medications Medications: Current Medications Acetylcysteine (Acetylcysteine 20%) 4 ml INH RQ8 [facility] Last Admin: 09/24/17 01:02 Dose: 4 ml Albuterol/Ipratropium (Duoneb 3 Mg/0.5 Mg (3 Ml) Ud) 3 ml INH RQ8 [facility] Last Admin: 09/24/17 01:02 Dose: 3 ml Albuterol/Ipratropium (Duoneb 3 Mg/0.5 Mg (3 Ml) Ud) 3 ml INH RQ4 PRN PRN Reason: Wheezing Aspirin (Aspirin Chewable) 81 mg PEG DAILY [facility] Last Admin: 09/23/17 10:25 Dose: 81 mg Carvedilol (Coreg) 3.125 mg PEG BID [facility] Last Admin: 09/23/17 18:25 Dose: 3.125 mg Clopidogrel Bisulfate (Plavix) 75 mg PEG DAILY [facility] Last Admin: 09/23/17 10:25 Dose: 75 mg Enoxaparin Sodium (Lovenox) 30 mg SC DAILY [facility] Last Admin: 09/23/17 10:25 Dose: 30 mg Famotidine (Pepcid) 20 mg PEG DAILY [facility] Last Admin: 09/23/17 10:25 Dose: 20 mg Finasteride (Proscar) 5 mg PEG DAILY [facility] Last Admin: 09/23/17 10:25 Dose: 5 mg Levetiracetam (Keppra) 500 mg PEG BID [facility] Last Admin: 09/23/17 18:25 Dose: 500 mg Nystatin (Nystatin Oral Susp) 5 ml PO QID [facility] Last Admin: 09/23/17 22:11 Dose: 5 ml Saccharomyces Boulardii (Florastor) 250 mg PEG DAILY [facility] Last Admin: 09/23/17 10:25 Dose: 250 mg Scopolamine (Transderm-Scop) 1 patch TD Q3D [facility] Last Admin: 09/21/17 18:04 Dose: 1 patch Tamsulosin HCl (Flomax) 0.4 mg PEG DAILY [facility] Last Admin: 09/23/17 10:25 Dose: 0.4 mg - Labs Labs: 09/21/17 08:18 09/21/17 08:18 PT 10.6 SECONDS (9.7-12.2) 11/24/15 14:10 INR 1.0 11/24/15 14:10 APTT 25 SECONDS (21-34) 11/24/15 14:10 - Additional Findings Additional findings: - Constitutional Appears: Chronically Ill - Additional Findings Additional findings: - Head Exam Head Exam: ATRAUMATIC, NORMAL INSPECTION - Eye Exam Eye Exam: absent: EOMI - ENT Exam ENT Exam: Mucous Membranes Moist - Neck Exam Neck Exam: Normal Inspection - Respiratory Exam Respiratory Exam: NORMAL BREATHING PATTERN. absent: Clear to Ausculation Bilateral Additional comments: trach collar in place - Cardiovascular Exam Cardiovascular Exam: REGULAR RHYTHM. absent: Bradycardia, Tachycardia - GI/Abdominal Exam GI & Abdominal Exam: Soft - Exam Additional comments: baker condom in place - Extremities Exam Extremities Exam: Normal Inspection - Neurological Exam Neurological Exam: Altered - Skin Skin Exam: Dry, Intact, Normal Color, Warm Assessment and Plan - Assessment and Plan (Free Text) Assessment: Anoxic encephalopathy s/p cardiac arrest in 05/2015 no acute changes Pt has non spontaneous movements. Continue tube feeds- goal of 60ml/hr, feedings held at night due to fluid overload Respiratory failure Trach in place, continue daily monitoring for secretions. No change in management at this time. Continue with aggressive suctioning multiple times a day per respiratory therapist. Monitor for signs of respiratory distress Thick secretions Duoneb 3ml INH Q6 and Mucomyst 4ml INH Q6H Scopolamine 1 patch TD Q3D [facility] Repeat CXR on 05/28/17: linear increased consolidative changes in the right mid- lung zone and left lung base which may represent atelectasis and/or infiltrate. Questionable trace left pleural effusion. moderate venous congestion. cardiomegaly. degenerative changes in the spine and shoulders 09/09: Secretions suctioned at bedside Leukocytosis secondary to UTI. Resolved 08/10: WBC 8.2 afebrile Meropenem (started 07/22) - per Dr. Armstrong continue for a total of 2 weeks - Discontinued 08/05/17 ID consult: Dr. Armstrong --> help appreciated Urinary retention 07/21: NS stopped because tube feeds restarted 07/20: Urine dark in color, monitor, continue NS at 50 ml per hour 07/07/17: Catheter flushed, patient output approx. 500mL within one hour post flush. 06/27/17: Continue bladder massages to aid in voiding. 06/25/17: Patient voids with movement. Continue bladder massages to aid in voiding. 06/23/17: Patient will need to have daily bladder massage to allow for complete voiding 06/17/17: Nursing communication placed in: straight catherization with bladder scan> 100ml 06/08: urinary retention yesterday, was given 40mg lasix iv and patient was able to urinate through condom baker Take note condom cath not always securely in place so Is and Os are approximate as patient does wet bed Ordered- new condom catheter on 05/22/17 Flomax 0.4mg PEG daily Proscar 5mg PEG daily continue Bethanecol 50mg PEG TID- started after persistent retention and found to be effective. monitor I's and O's - I/O: 780/350 Check bladder scan for residual urine three times weekly Hypokalemia, resolved K+ on 08/10: 4.2 Sacral ulcer Healed Cont with offloading/cushioning/turning Continue frequent turning, protective ointment and skin checks. History of coronary artery disease s/p cardiac stents on 06/13/15 Cont ASA 81mg via PEG daily Cont Coreg 3.125mg PEG BID Cont Plavix 75 mg PEG daily Seizures Continue Keppra 500mg PEG BID for seizure prophylaxis Monitor for activity Lower extremity edema Improved SCDs in place Pressure ulcer boots on b/l Continue to monitor Prophylactic measure Pepcid 20 mg PEG BID Lovenox 40mg SC daily SCDs and offloading boots continue to turn and reposition q2hrs Continue to monitor medication administrations and clinical presentation weekly labs. vasoline ointment applied to feet prn to prevent hyperkeratosis Please hold feeding from 10pm-6am, placed into nursing communication Vitamin A & D for lips There is no update at this time. <Amandeep Chavis H - Last Filed: 09/24/17 07:25> Objective - Vital Signs/Intake and Output Vital Signs (last 24 hours): Temp Pulse Resp BP Pulse Ox 98.1 F 78 22 123/78 98 09/23/17 23:40 09/23/17 23:40 09/23/17 23:40 09/23/17 23:40 09/23/17 23:40 Intake and Output: 09/24/17 09/24/17 06:59 18:59 Intake Total 1560 Output Total 880 Balance 680 - Medications Medications: Current Medications Acetylcysteine (Acetylcysteine 20%) 4 ml INH RQ8 [facility] Last Admin: 09/24/17 01:02 Dose: 4 ml Albuterol/Ipratropium (Duoneb 3 Mg/0.5 Mg (3 Ml) Ud) 3 ml INH RQ8 [facility] Last Admin: 09/24/17 01:02 Dose: 3 ml Albuterol/Ipratropium (Duoneb 3 Mg/0.5 Mg (3 Ml) Ud) 3 ml INH RQ4 PRN PRN Reason: Wheezing Aspirin (Aspirin Chewable) 81 mg PEG DAILY [facility] Last Admin: 09/23/17 10:25 Dose: 81 mg Carvedilol (Coreg) 3.125 mg PEG BID [facility] Last Admin: 09/23/17 18:25 Dose: 3.125 mg Clopidogrel Bisulfate (Plavix) 75 mg PEG DAILY [facility] Last Admin: 09/23/17 10:25 Dose: 75 mg Enoxaparin Sodium (Lovenox) 30 mg SC DAILY [facility] Last Admin: 09/23/17 10:25 Dose: 30 mg Famotidine (Pepcid) 20 mg PEG DAILY [facility] Last Admin: 09/23/17 10:25 Dose: 20 mg Finasteride (Proscar) 5 mg PEG DAILY [facility] Last Admin: 09/23/17 10:25 Dose: 5 mg Levetiracetam (Keppra) 500 mg PEG BID [facility] Last Admin: 09/23/17 18:25 Dose: 500 mg Nystatin (Nystatin Oral Susp) 5 ml PO QID [facility] Last Admin: 09/23/17 22:11 Dose: 5 ml Saccharomyces Boulardii (Florastor) 250 mg PEG DAILY [facility] Last Admin: 09/23/17 10:25 Dose: 250 mg Scopolamine (Transderm-Scop) 1 patch TD Q3D [facility] Last Admin: 09/21/17 18:04 Dose: 1 patch Tamsulosin HCl (Flomax) 0.4 mg PEG DAILY [facility] Last Admin: 09/23/17 10:25 Dose: 0.4 mg - Labs Labs: 09/21/17 08:18 09/21/17 08:18 PT 10.6 SECONDS (9.7-12.2) 11/24/15 14:10 INR 1.0 11/24/15 14:10 APTT 25 SECONDS (21-34) 11/24/15 14:10 Assessment and Plan (1) Prophylactic measure Status: Acute (2) Anoxic encephalopathy Status: Chronic (3) STEMI (ST elevation myocardial infarction) Status: Acute (4) Cardiac arrest Status: Acute (5) Seizures Status: Acute (6) Respiratory failure Status: Chronic Attending/Attestation - Attestation I have personally seen and examined this patient.: Yes I have fully participated in the care of the patient.: Yes I have reviewed all pertinent clinical information, including history, physical exam and plan: Yes Notes (Text): 09/24/17 07:25 Medical attending: Patient was seen and examined by me, agrees the above note by medical center director. Patient examined the patient's back. He does have a small area around sacral area that has some skin abrasion however there is no open break down the area was covered by a cream had been applied Thank you very much, Amandeep Chavis
[2017-09-24] MEDS: Enoxaparin 30 mg Syringe SC SCH (10:28)
[2017-09-24] MEDS: Nystatin 100,000 Units/ml Oral Susp 5 ml UD PO SCH ×4 (10:28→22:13)
[2017-09-24] MEDS: Saccharomyces Boulardi 250 mg Cap PEG SCH (10:28)
[2017-09-24] MEDS: levETIRAcetam 100 mg/ml (5ml) Oral Syringe PEG SCH ×2 (10:28→17:34)
[2017-09-25] MEDS: Acetylcysteine 20% Inhal Soln (4ml) INH SCH ×3 (00:15→16:09)
[2017-09-25] MEDS: Albuterol-Ipratrop 3 mg / 0.5 (3 ml) UD INH SCH ×3 (00:17→16:09)
--- NOTE | 2017-09-25 07:09 | CP.PCM.PN ---
Subjective - Date & Time of Evaluation Date of Evaluation: 09/25/17 Time of Evaluation: 07:07 - Subjective Subjective: PGY-[address] Chavis. HPI: Patient was seen and examined at bedside. ROS unattainable due to anoxic brain injury. Objective - Vital Signs/Intake and Output Vital Signs (last 24 hours): Temp Pulse Resp BP Pulse Ox 98.5 F 79 20 135/82 97 09/25/17 00:00 09/25/17 00:00 09/25/17 00:00 09/25/17 00:00 09/25/17 00:00 Intake and Output: 09/25/17 09/25/17 06:59 18:59 Intake Total 1600 Output Total 900 Balance 700 - Medications Medications: Current Medications Acetylcysteine (Acetylcysteine 20%) 4 ml INH RQ8 [facility] Last Admin: 09/25/17 00:15 Dose: 4 ml Albuterol/Ipratropium (Duoneb 3 Mg/0.5 Mg (3 Ml) Ud) 3 ml INH RQ8 [facility] Last Admin: 09/25/17 00:17 Dose: 3 ml Albuterol/Ipratropium (Duoneb 3 Mg/0.5 Mg (3 Ml) Ud) 3 ml INH RQ4 PRN PRN Reason: Wheezing Aspirin (Aspirin Chewable) 81 mg PEG DAILY [facility] Last Admin: 09/24/17 10:28 Dose: 81 mg Carvedilol (Coreg) 3.125 mg PEG BID [facility] Last Admin: 09/24/17 17:34 Dose: 3.125 mg Clopidogrel Bisulfate (Plavix) 75 mg PEG DAILY [facility] Last Admin: 09/24/17 10:28 Dose: 75 mg Enoxaparin Sodium (Lovenox) 30 mg SC DAILY [facility] Last Admin: 09/24/17 10:28 Dose: 30 mg Famotidine (Pepcid) 20 mg PEG DAILY [facility] Last Admin: 09/24/17 10:28 Dose: 20 mg Finasteride (Proscar) 5 mg PEG DAILY [facility] Last Admin: 09/24/17 10:28 Dose: 5 mg Levetiracetam (Keppra) 500 mg PEG BID [facility] Last Admin: 09/24/17 17:34 Dose: 500 mg Nystatin (Nystatin Oral Susp) 5 ml PO QID [facility] Last Admin: 09/24/17 22:13 Dose: 5 ml Saccharomyces Boulardii (Florastor) 250 mg PEG DAILY [facility] Last Admin: 09/24/17 10:28 Dose: 250 mg Scopolamine (Transderm-Scop) 1 patch TD Q3D [facility] Last Admin: 09/24/17 17:34 Dose: 1 patch Tamsulosin HCl (Flomax) 0.4 mg PEG DAILY [facility] Last Admin: 09/24/17 10:28 Dose: 0.4 mg - Labs Labs: 09/21/17 08:18 09/21/17 08:18 PT 10.6 SECONDS (9.7-12.2) 11/24/15 14:10 INR 1.0 11/24/15 14:10 APTT 25 SECONDS (21-34) 11/24/15 14:10 - Additional Findings Additional findings: - Constitutional Appears: Chronically Ill - Additional Findings Additional findings: - Head Exam Head Exam: ATRAUMATIC, NORMAL INSPECTION - Eye Exam Eye Exam: absent: EOMI - ENT Exam ENT Exam: Mucous Membranes Moist - Neck Exam Neck Exam: Normal Inspection - Respiratory Exam Respiratory Exam: NORMAL BREATHING PATTERN. absent: Clear to Ausculation Bilateral Additional comments: trach collar in place - Cardiovascular Exam Cardiovascular Exam: REGULAR RHYTHM. absent: Bradycardia, Tachycardia - GI/Abdominal Exam GI & Abdominal Exam: Soft - Exam Additional comments: baker condom in place - Extremities Exam Extremities Exam: Normal Inspection - Neurological Exam Neurological Exam: Altered - Skin Skin Exam: Dry, Intact, Normal Color, Warm Assessment and Plan - Assessment and Plan (Free Text) Assessment: Anoxic encephalopathy s/p cardiac arrest in 05/2015 no acute changes Pt has non spontaneous movements. Continue tube feeds- goal of 60ml/hr, feedings held at night due to fluid overload Respiratory failure Trach in place, continue daily monitoring for secretions. No change in management at this time. Continue with aggressive suctioning multiple times a day per respiratory therapist. Monitor for signs of respiratory distress Thick secretions Duoneb 3ml INH Q6 and Mucomyst 4ml INH Q6H Scopolamine 1 patch TD Q3D [facility] Repeat CXR on 05/28/17: linear increased consolidative changes in the right mid- lung zone and left lung base which may represent atelectasis and/or infiltrate. Questionable trace left pleural effusion. moderate venous congestion. cardiomegaly. degenerative changes in the spine and shoulders 09/09: Secretions suctioned at bedside Leukocytosis secondary to UTI. Resolved 08/10: WBC 8.2 afebrile Meropenem (started 07/22) - per Dr. Armstrong continue for a total of 2 weeks - Discontinued 08/05/17 ID consult: Dr. Armstrong --> help appreciated Urinary retention 07/21: NS stopped because tube feeds restarted 07/20: Urine dark in color, monitor, continue NS at 50 ml per hour 07/07/17: Catheter flushed, patient output approx. 500mL within one hour post flush. 06/27/17: Continue bladder massages to aid in voiding. 06/25/17: Patient voids with movement. Continue bladder massages to aid in voiding. 06/23/17: Patient will need to have daily bladder massage to allow for complete voiding 06/17/17: Nursing communication placed in: straight catherization with bladder scan> 100ml 06/08: urinary retention yesterday, was given 40mg lasix iv and patient was able to urinate through condom baker Take note condom cath not always securely in place so Is and Os are approximate as patient does wet bed Ordered- new condom catheter on 05/22/17 Flomax 0.4mg PEG daily Proscar 5mg PEG daily continue Bethanecol 50mg PEG TID- started after persistent retention and found to be effective. monitor I's and O's - I/O: 780/350 Check bladder scan for residual urine three times weekly Hypokalemia, resolved K+ on 08/10: 4.2 Sacral ulcer Healed Cont with offloading/cushioning/turning Continue frequent turning, protective ointment and skin checks. History of coronary artery disease s/p cardiac stents on 06/13/15 Cont ASA 81mg via PEG daily Cont Coreg 3.125mg PEG BID Cont Plavix 75 mg PEG daily Seizures Continue Keppra 500mg PEG BID for seizure prophylaxis Monitor for activity Lower extremity edema Improved SCDs in place Pressure ulcer boots on b/l Continue to monitor Prophylactic measure Pepcid 20 mg PEG BID Lovenox 40mg SC daily SCDs and offloading boots continue to turn and reposition q2hrs Continue to monitor medication administrations and clinical presentation weekly labs. vasoline ointment applied to feet prn to prevent hyperkeratosis Please hold feeding from 10pm-6am, placed into nursing communication Vitamin A & D for lips There is no update at this time.
[2017-09-25] MEDS: Saccharomyces Boulardi 250 mg Cap PEG SCH (09:59)
[2017-09-25] MEDS: Nystatin 100,000 Units/ml Oral Susp 5 ml UD PO SCH ×4 (09:59→21:35)
[2017-09-25] MEDS: Enoxaparin 30 mg Syringe SC SCH (09:59)
[2017-09-25] MEDS: levETIRAcetam 100 mg/ml (5ml) Oral Syringe PEG SCH ×2 (09:59→17:40)
[2017-09-26] MEDS: Acetylcysteine 20% Inhal Soln (4ml) INH SCH ×4 (01:05→23:47)
[2017-09-26] MEDS: Albuterol-Ipratrop 3 mg / 0.5 (3 ml) UD INH SCH ×4 (01:05→23:47)
--- NOTE | 2017-09-26 03:36 | CP.PCM.PN ---
Subjective - Date & Time of Evaluation Date of Evaluation: 09/26/17 Time of Evaluation: 03:35 - Subjective Subjective: PGY-[address] Chavis. HPI: Patient was seen and examined at bedside. ROS unattainable due to anoxic brain injury. Objective - Vital Signs/Intake and Output Vital Signs (last 24 hours): Temp Pulse Resp BP Pulse Ox 98.9 F 74 20 126/82 98 09/26/17 00:00 09/26/17 00:00 09/26/17 00:00 09/26/17 00:00 09/26/17 00:00 Intake and Output: 09/25/17 09/26/17 18:59 06:59 Intake Total 780 880 Output Total 300 400 Balance 480 480 - Medications Medications: Current Medications Acetylcysteine (Acetylcysteine 20%) 4 ml INH RQ8 [facility] Last Admin: 09/26/17 01:05 Dose: 4 ml Albuterol/Ipratropium (Duoneb 3 Mg/0.5 Mg (3 Ml) Ud) 3 ml INH RQ8 [facility] Last Admin: 09/26/17 01:05 Dose: 3 ml Albuterol/Ipratropium (Duoneb 3 Mg/0.5 Mg (3 Ml) Ud) 3 ml INH RQ4 PRN PRN Reason: Wheezing Aspirin (Aspirin Chewable) 81 mg PEG DAILY [facility] Last Admin: 09/25/17 09:59 Dose: 81 mg Carvedilol (Coreg) 3.125 mg PEG BID [facility] Last Admin: 09/25/17 17:40 Dose: 3.125 mg Clopidogrel Bisulfate (Plavix) 75 mg PEG DAILY [facility] Last Admin: 09/25/17 09:59 Dose: 75 mg Enoxaparin Sodium (Lovenox) 30 mg SC DAILY [facility] Last Admin: 09/25/17 09:59 Dose: 30 mg Famotidine (Pepcid) 20 mg PEG DAILY [facility] Last Admin: 09/25/17 09:59 Dose: 20 mg Finasteride (Proscar) 5 mg PEG DAILY [facility] Last Admin: 09/25/17 10:00 Dose: 5 mg Levetiracetam (Keppra) 500 mg PEG BID [facility] Last Admin: 09/25/17 17:40 Dose: 500 mg Nystatin (Nystatin Oral Susp) 5 ml PO QID [facility] Last Admin: 09/25/17 21:35 Dose: 5 ml Saccharomyces Boulardii (Florastor) 250 mg PEG DAILY [facility] Last Admin: 09/25/17 09:59 Dose: 250 mg Scopolamine (Transderm-Scop) 1 patch TD Q3D [facility] Last Admin: 09/24/17 17:34 Dose: 1 patch Tamsulosin HCl (Flomax) 0.4 mg PEG DAILY [facility] Last Admin: 09/25/17 09:59 Dose: 0.4 mg - Labs Labs: 09/21/17 08:18 09/21/17 08:18 PT 10.6 SECONDS (9.7-12.2) 11/24/15 14:10 INR 1.0 11/24/15 14:10 APTT 25 SECONDS (21-34) 11/24/15 14:10 - Additional Findings Additional findings: - Constitutional Appears: Chronically Ill - Additional Findings Additional findings: - Head Exam Head Exam: ATRAUMATIC, NORMAL INSPECTION - Eye Exam Eye Exam: absent: EOMI - ENT Exam ENT Exam: Mucous Membranes Moist - Neck Exam Neck Exam: Normal Inspection - Respiratory Exam Respiratory Exam: NORMAL BREATHING PATTERN. absent: Clear to Ausculation Bilateral Additional comments: trach collar in place - Cardiovascular Exam Cardiovascular Exam: REGULAR RHYTHM. absent: Bradycardia, Tachycardia - GI/Abdominal Exam GI & Abdominal Exam: Soft - Exam Additional comments: baker condom in place - Extremities Exam Extremities Exam: Normal Inspection - Neurological Exam Neurological Exam: Altered - Skin Skin Exam: Dry, Intact, Normal Color, Warm Assessment and Plan - Assessment and Plan (Free Text) Assessment: - Assessment and Plan (Free Text) Assessment: Anoxic encephalopathy s/p cardiac arrest in 05/2015 no acute changes Pt has non spontaneous movements. Continue tube feeds- goal of 60ml/hr, feedings held at night due to fluid overload Respiratory failure Trach in place, continue daily monitoring for secretions. No change in management at this time. Continue with aggressive suctioning multiple times a day per respiratory therapist. Monitor for signs of respiratory distress Thick secretions Duoneb 3ml INH Q6 and Mucomyst 4ml INH Q6H Scopolamine 1 patch TD Q3D [facility] Repeat CXR on 05/28/17: linear increased consolidative changes in the right mid- lung zone and left lung base which may represent atelectasis and/or infiltrate. Questionable trace left pleural effusion. moderate venous congestion. cardiomegaly. degenerative changes in the spine and shoulders 09/09: Secretions suctioned at bedside Leukocytosis secondary to UTI. Resolved 08/10: WBC 8.2 afebrile Meropenem (started 07/22) - per Dr. Armstrong continue for a total of 2 weeks - Discontinued 08/05/17 ID consult: Dr. Armstrong --> help appreciated Urinary retention 07/21: NS stopped because tube feeds restarted 07/20: Urine dark in color, monitor, continue NS at 50 ml per hour 07/07/17: Catheter flushed, patient output approx. 500mL within one hour post flush. 06/27/17: Continue bladder massages to aid in voiding. 06/25/17: Patient voids with movement. Continue bladder massages to aid in voiding. 06/23/17: Patient will need to have daily bladder massage to allow for complete voiding 06/17/17: Nursing communication placed in: straight catherization with bladder scan> 100ml 06/08: urinary retention yesterday, was given 40mg lasix iv and patient was able to urinate through condom baker Take note condom cath not always securely in place so Is and Os are approximate as patient does wet bed Ordered- new condom catheter on 05/22/17 Flomax 0.4mg PEG daily Proscar 5mg PEG daily continue Bethanecol 50mg PEG TID- started after persistent retention and found to be effective. monitor I's and O's - I/O: 780/350 Check bladder scan for residual urine three times weekly Hypokalemia, resolved K+ on 08/10: 4.2 Sacral ulcer Healed Cont with offloading/cushioning/turning Continue frequent turning, protective ointment and skin checks. History of coronary artery disease s/p cardiac stents on 06/13/15 Cont ASA 81mg via PEG daily Cont Coreg 3.125mg PEG BID Cont Plavix 75 mg PEG daily Seizures Continue Keppra 500mg PEG BID for seizure prophylaxis Monitor for activity Lower extremity edema Improved SCDs in place Pressure ulcer boots on b/l Continue to monitor Prophylactic measure Pepcid 20 mg PEG BID Lovenox 40mg SC daily SCDs and offloading boots continue to turn and reposition q2hrs Continue to monitor medication administrations and clinical presentation weekly labs. vasoline ointment applied to feet prn to prevent hyperkeratosis Please hold feeding from 10pm-6am, placed into nursing communication Vitamin A & D for lips There is no update at this time.
[2017-09-26] MEDS: Enoxaparin 30 mg Syringe SC SCH (10:58)
[2017-09-26] MEDS: Saccharomyces Boulardi 250 mg Cap PEG SCH (10:58)
[2017-09-26] MEDS: levETIRAcetam 100 mg/ml (5ml) Oral Syringe PEG SCH ×2 (10:58→17:43)
--- NOTE | 2017-09-27 01:58 | CP.PCM.PN ---
<Judith Martinez - Last Filed: 09/27/17 01:56 EST> Subjective - Date & Time of Evaluation Date of Evaluation: 09/27/17 Time of Evaluation: 01:56 - Subjective Subjective: PGY-[address] Chavis. HPI: Patient was seen and examined at bedside. ROS unattainable due to anoxic brain injury. Objective - Vital Signs/Intake and Output Vital Signs (last 24 hours): Temp Pulse Resp BP Pulse Ox 98.4 F 89 20 126/55 L 98 09/27/17 00:00 09/27/17 00:00 09/27/17 00:00 09/27/17 00:00 09/27/17 00:00 Intake and Output: 09/26/17 09/27/17 18:59 05:59 Intake Total 780 Output Total 400 Balance 380 - Medications Medications: Current Medications Acetylcysteine (Acetylcysteine 20%) 4 ml INH RQ8 [facility] Last Admin: 09/26/17 23:47 Dose: 4 ml Albuterol/Ipratropium (Duoneb 3 Mg/0.5 Mg (3 Ml) Ud) 3 ml INH RQ8 [facility] Last Admin: 09/26/17 23:47 Dose: 3 ml Aspirin (Aspirin Chewable) 81 mg PEG DAILY [facility] Last Admin: 09/26/17 10:58 Dose: 81 mg Carvedilol (Coreg) 3.125 mg PEG BID [facility] Last Admin: 09/26/17 17:43 Dose: 3.125 mg Clopidogrel Bisulfate (Plavix) 75 mg PEG DAILY [facility] Last Admin: 09/26/17 10:58 Dose: 75 mg Enoxaparin Sodium (Lovenox) 30 mg SC DAILY [facility] Last Admin: 09/26/17 10:58 Dose: 30 mg Famotidine (Pepcid) 20 mg PEG DAILY [facility] Last Admin: 09/26/17 10:58 Dose: 20 mg Finasteride (Proscar) 5 mg PEG DAILY [facility] Last Admin: 09/26/17 10:59 Dose: 5 mg Levetiracetam (Keppra) 500 mg PEG BID [facility] Last Admin: 09/26/17 17:43 Dose: 500 mg Saccharomyces Boulardii (Florastor) 250 mg PEG DAILY [facility] Last Admin: 09/26/17 10:58 Dose: 250 mg Scopolamine (Transderm-Scop) 1 patch TD Q3D [facility] Last Admin: 09/24/17 17:34 Dose: 1 patch Tamsulosin HCl (Flomax) 0.4 mg PEG DAILY [facility] Last Admin: 09/26/17 10:58 Dose: 0.4 mg - Labs Labs: 09/21/17 08:18 09/21/17 08:18 PT 10.6 SECONDS (9.7-12.2) 11/24/15 14:10 INR 1.0 11/24/15 14:10 APTT 25 SECONDS (21-34) 11/24/15 14:10 - Additional Findings Additional findings: - Constitutional Appears: Chronically Ill - Additional Findings Additional findings: - Head Exam Head Exam: ATRAUMATIC, NORMAL INSPECTION - Eye Exam Eye Exam: absent: EOMI - ENT Exam ENT Exam: Mucous Membranes Moist - Neck Exam Neck Exam: Normal Inspection - Respiratory Exam Respiratory Exam: NORMAL BREATHING PATTERN. absent: Clear to Ausculation Bilateral Additional comments: trach collar in place - Cardiovascular Exam Cardiovascular Exam: REGULAR RHYTHM. absent: Bradycardia, Tachycardia - GI/Abdominal Exam GI & Abdominal Exam: Soft - Exam Additional comments: baker condom in place - Extremities Exam Extremities Exam: Normal Inspection - Neurological Exam Neurological Exam: Altered - Skin Skin Exam: Dry, Intact, Normal Color, Warm Assessment and Plan - Assessment and Plan (Free Text) Plan: Anoxic encephalopathy s/p cardiac arrest in 05/2015 no acute changes Pt has non spontaneous movements. Continue tube feeds- goal of 60ml/hr, feedings held at night due to fluid overload Respiratory failure Trach in place, continue daily monitoring for secretions. No change in management at this time. Continue with aggressive suctioning multiple times a day per respiratory therapist. Monitor for signs of respiratory distress Thick secretions Duoneb 3ml INH Q6 and Mucomyst 4ml INH Q6H Scopolamine 1 patch TD Q3D [facility] Repeat CXR on 05/28/17: linear increased consolidative changes in the right mid- lung zone and left lung base which may represent atelectasis and/or infiltrate. Questionable trace left pleural effusion. moderate venous congestion. cardiomegaly. degenerative changes in the spine and shoulders 09/09: Secretions suctioned at bedside Leukocytosis secondary to UTI. Resolved 08/10: WBC 8.2 afebrile Meropenem (started 07/22) - per Dr. Armstrong continue for a total of 2 weeks - Discontinued 08/05/17 ID consult: Dr. Armstrong --> help appreciated Urinary retention 07/21: NS stopped because tube feeds restarted 07/20: Urine dark in color, monitor, continue NS at 50 ml per hour 07/07/17: Catheter flushed, patient output approx. 500mL within one hour post flush. 06/27/17: Continue bladder massages to aid in voiding. 06/25/17: Patient voids with movement. Continue bladder massages to aid in voiding. 06/23/17: Patient will need to have daily bladder massage to allow for complete voiding 06/17/17: Nursing communication placed in: straight catherization with bladder scan> 100ml 06/08: urinary retention yesterday, was given 40mg lasix iv and patient was able to urinate through condom baker Take note condom cath not always securely in place so Is and Os are approximate as patient does wet bed Ordered- new condom catheter on 05/22/17 Flomax 0.4mg PEG daily Proscar 5mg PEG daily continue Bethanecol 50mg PEG TID- started after persistent retention and found to be effective. monitor I's and O's - I/O: 780/350 Check bladder scan for residual urine three times weekly Hypokalemia, resolved K+ on 08/10: 4.2 Sacral ulcer Healed Cont with offloading/cushioning/turning Continue frequent turning, protective ointment and skin checks. History of coronary artery disease s/p cardiac stents on 06/13/15 Cont ASA 81mg via PEG daily Cont Coreg 3.125mg PEG BID Cont Plavix 75 mg PEG daily Seizures Continue Keppra 500mg PEG BID for seizure prophylaxis Monitor for activity Lower extremity edema Improved SCDs in place Pressure ulcer boots on b/l Continue to monitor Prophylactic measure Pepcid 20 mg PEG BID Lovenox 40mg SC daily SCDs and offloading boots continue to turn and reposition q2hrs Continue to monitor medication administrations and clinical presentation weekly labs. vasoline ointment applied to feet prn to prevent hyperkeratosis Please hold feeding from 10pm-6am, placed into nursing communication Vitamin A & D for lips There is no update at this time. <Amandeep Chavis - Last Filed: 09/27/17 12:15> Objective - Vital Signs/Intake and Output Vital Signs (last 24 hours): Temp Pulse Resp BP Pulse Ox 98.5 F 82 20 108/70 100 09/27/17 09:46 09/27/17 09:46 09/27/17 09:46 09/27/17 09:46 09/27/17 09:46 Intake and Output: 09/27/17 09/27/17 06:59 18:59 Intake Total Output Total Balance - Medications Medications: Current Medications Acetylcysteine (Acetylcysteine 20%) 4 ml INH RQ8 [facility] Last Admin: 09/27/17 07:35 Dose: 4 ml Albuterol/Ipratropium (Duoneb 3 Mg/0.5 Mg (3 Ml) Ud) 3 ml INH RQ8 [facility] Last Admin: 09/27/17 07:35 Dose: 3 ml Aspirin (Aspirin Chewable) 81 mg PEG DAILY [facility] Last Admin: 09/27/17 09:46 Dose: 81 mg Carvedilol (Coreg) 3.125 mg PEG BID [facility] Last Admin: 09/27/17 09:46 Dose: 3.125 mg Enoxaparin Sodium (Lovenox) 30 mg SC DAILY [facility] Last Admin: 09/27/17 09:46 Dose: 30 mg Famotidine (Pepcid) 20 mg PEG DAILY [facility] Last Admin: 09/27/17 09:46 Dose: 20 mg Finasteride (Proscar) 5 mg PEG DAILY [facility] Last Admin: 09/27/17 09:46 Dose: 5 mg Levetiracetam (Keppra) 500 mg PEG BID [facility] Last Admin: 09/27/17 09:46 Dose: 500 mg Saccharomyces Boulardii (Florastor) 250 mg PEG DAILY [facility] Last Admin: 09/27/17 09:46 Dose: 250 mg Scopolamine (Transderm-Scop) 1 patch TD Q3D [facility] Last Admin: 09/24/17 17:34 Dose: 1 patch Tamsulosin HCl (Flomax) 0.4 mg PEG DAILY [facility] Last Admin: 09/27/17 09:46 Dose: 0.4 mg - Labs Labs: 09/21/17 08:18 09/21/17 08:18 PT 10.6 SECONDS (9.7-12.2) 11/24/15 14:10 INR 1.0 11/24/15 14:10 APTT 25 SECONDS (21-34) 11/24/15 14:10 Assessment and Plan (1) Prophylactic measure Status: Acute (2) Anoxic encephalopathy Status: Chronic (3) STEMI (ST elevation myocardial infarction) Status: Acute (4) Cardiac arrest Status: Acute (5) Seizures Status: Acute (6) Respiratory failure Status: Chronic Attending/Attestation - Attestation I have personally seen and examined this patient.: Yes I have fully participated in the care of the patient.: Yes I have reviewed all pertinent clinical information, including history, physical exam and plan: Yes Notes (Text): 09/27/17 12:14 Medical Attending: Patient was seen and examined Situation is unchanged from before.
[2017-09-27] MEDS: Albuterol-Ipratrop 3 mg / 0.5 (3 ml) UD INH SCH ×2 (07:35→16:20)
[2017-09-27] MEDS: Acetylcysteine 20% Inhal Soln (4ml) INH SCH ×2 (07:35→16:20)
[2017-09-27] MEDS: Saccharomyces Boulardi 250 mg Cap PEG SCH (09:46)
[2017-09-27] MEDS: levETIRAcetam 100 mg/ml (5ml) Oral Syringe PEG SCH ×2 (09:46→17:48)
[2017-09-27] MEDS: Enoxaparin 30 mg Syringe SC SCH (09:46)
[2017-09-28] MEDS: Acetylcysteine 20% Inhal Soln (4ml) INH SCH ×4 (00:58→23:31)
[2017-09-28] MEDS: Albuterol-Ipratrop 3 mg / 0.5 (3 ml) UD INH SCH ×4 (00:58→23:31)
--- NOTE | 2017-09-28 07:05 | CP.PCM.PN ---
<Ben Martell - Last Filed: 09/28/17 07:03> Subjective - Date & Time of Evaluation Date of Evaluation: 09/28/17 Time of Evaluation: 07:03 - Subjective Subjective: PGY-1 medicine note. HPI: Patient was seen and examined at bedside. ROS unattainable due to anoxic brain injury. Objective - Vital Signs/Intake and Output Vital Signs (last 24 hours): Temp Pulse Resp BP Pulse Ox 98.2 F 79 20 129/88 96 09/28/17 00:14 09/28/17 00:14 09/28/17 00:14 09/28/17 00:14 09/28/17 00:14 Intake and Output: 09/28/17 09/28/17 06:59 18:59 Intake Total 2160 Output Total 400 Balance 1760 - Medications Medications: Current Medications Acetylcysteine (Acetylcysteine 20%) 4 ml INH RQ8 [facility] Last Admin: 09/28/17 00:58 Dose: 4 ml Albuterol/Ipratropium (Duoneb 3 Mg/0.5 Mg (3 Ml) Ud) 3 ml INH RQ8 [facility] Last Admin: 09/28/17 00:58 Dose: 3 ml Aspirin (Aspirin Chewable) 81 mg PEG DAILY [facility] Last Admin: 09/27/17 09:46 Dose: 81 mg Carvedilol (Coreg) 3.125 mg PEG BID [facility] Last Admin: 09/27/17 17:48 Dose: 3.125 mg Enoxaparin Sodium (Lovenox) 30 mg SC DAILY [facility] Last Admin: 09/27/17 09:46 Dose: 30 mg Famotidine (Pepcid) 20 mg PEG DAILY [facility] Last Admin: 09/27/17 09:46 Dose: 20 mg Finasteride (Proscar) 5 mg PEG DAILY [facility] Last Admin: 09/27/17 09:46 Dose: 5 mg Levetiracetam (Keppra) 500 mg PEG BID [facility] Last Admin: 09/27/17 17:48 Dose: 500 mg Saccharomyces Boulardii (Florastor) 250 mg PEG DAILY [facility] Last Admin: 09/27/17 09:46 Dose: 250 mg Scopolamine (Transderm-Scop) 1 patch TD Q3D [facility] Last Admin: 09/27/17 17:48 Dose: 1 patch Tamsulosin HCl (Flomax) 0.4 mg PEG DAILY [facility] Last Admin: 09/27/17 09:46 Dose: 0.4 mg - Labs Labs: 09/21/17 08:18 09/21/17 08:18 PT 10.6 SECONDS (9.7-12.2) 11/24/15 14:10 INR 1.0 11/24/15 14:10 APTT 25 SECONDS (21-34) 11/24/15 14:10 - Additional Findings Additional findings: - Constitutional Appears: Chronically Ill - Additional Findings Additional findings: - Head Exam Head Exam: ATRAUMATIC, NORMAL INSPECTION - Eye Exam Eye Exam: absent: EOMI - ENT Exam ENT Exam: Mucous Membranes Moist - Neck Exam Neck Exam: Normal Inspection - Respiratory Exam Respiratory Exam: NORMAL BREATHING PATTERN. absent: Clear to Ausculation Bilateral Additional comments: trach collar in place - Cardiovascular Exam Cardiovascular Exam: REGULAR RHYTHM. absent: Bradycardia, Tachycardia - GI/Abdominal Exam GI & Abdominal Exam: Soft - Exam Additional comments: baker condom in place - Extremities Exam Extremities Exam: Normal Inspection - Neurological Exam Neurological Exam: Altered - Skin Skin Exam: Dry, Intact, Normal Color, Warm Assessment and Plan - Assessment and Plan (Free Text) Assessment: Anoxic encephalopathy s/p cardiac arrest in 05/2015 no acute changes Pt has non spontaneous movements. Continue tube feeds- goal of 60ml/hr, feedings held at night due to fluid overload Respiratory failure Trach in place, continue daily monitoring for secretions. No change in management at this time. Continue with aggressive suctioning multiple times a day per respiratory therapist. Monitor for signs of respiratory distress Thick secretions Duoneb 3ml INH Q6 and Mucomyst 4ml INH Q6H Scopolamine 1 patch TD Q3D [facility] Repeat CXR on 05/28/17: linear increased consolidative changes in the right mid- lung zone and left lung base which may represent atelectasis and/or infiltrate. Questionable trace left pleural effusion. moderate venous congestion. cardiomegaly. degenerative changes in the spine and shoulders 09/09: Secretions suctioned at bedside Leukocytosis secondary to UTI. Resolved 08/10: WBC 8.2 afebrile Meropenem (started 07/22) - per Dr. Armstrong continue for a total of 2 weeks - Discontinued 08/05/17 ID consult: Dr. Armstrong --> help appreciated Urinary retention 07/21: NS stopped because tube feeds restarted 07/20: Urine dark in color, monitor, continue NS at 50 ml per hour 07/07/17: Catheter flushed, patient output approx. 500mL within one hour post flush. 06/27/17: Continue bladder massages to aid in voiding. 06/25/17: Patient voids with movement. Continue bladder massages to aid in voiding. 06/23/17: Patient will need to have daily bladder massage to allow for complete voiding 06/17/17: Nursing communication placed in: straight catherization with bladder scan> 100ml 06/08: urinary retention yesterday, was given 40mg lasix iv and patient was able to urinate through condom baker Take note condom cath not always securely in place so Is and Os are approximate as patient does wet bed Ordered- new condom catheter on 05/22/17 Flomax 0.4mg PEG daily Proscar 5mg PEG daily continue Bethanecol 50mg PEG TID- started after persistent retention and found to be effective. monitor I's and O's - I/O: 780/350 Check bladder scan for residual urine three times weekly Hypokalemia, resolved K+ on 08/10: 4.2 Sacral ulcer Healed Cont with offloading/cushioning/turning Continue frequent turning, protective ointment and skin checks. History of coronary artery disease s/p cardiac stents on 06/13/15 Cont ASA 81mg via PEG daily Cont Coreg 3.125mg PEG BID Cont Plavix 75 mg PEG daily Seizures Continue Keppra 500mg PEG BID for seizure prophylaxis Monitor for activity Lower extremity edema Improved SCDs in place Pressure ulcer boots on b/l Continue to monitor Prophylactic measure Pepcid 20 mg PEG BID Lovenox 40mg SC daily SCDs and offloading boots continue to turn and reposition q2hrs Continue to monitor medication administrations and clinical presentation weekly labs. vasoline ointment applied to feet prn to prevent hyperkeratosis Please hold feeding from 10pm-6am, placed into nursing communication Vitamin A & D for lips There is no update at this time. <Jeison Moore - Last Filed: 09/28/17 17:51> Objective - Vital Signs/Intake and Output Vital Signs (last 24 hours): Temp Pulse Resp BP Pulse Ox 97.6 F 84 20 144/89 98 09/28/17 15:00 09/28/17 15:00 09/28/17 15:00 09/28/17 15:00 09/28/17 15:00 Intake and Output: 09/28/17 09/28/17 06:59 18:59 Intake Total 2160 755 Output Total 400 600 Balance 1760 155 - Medications Medications: Current Medications Acetylcysteine (Acetylcysteine 20%) 4 ml INH RQ8 [facility] Last Admin: 09/28/17 17:09 Dose: 4 ml Albuterol/Ipratropium (Duoneb 3 Mg/0.5 Mg (3 Ml) Ud) 3 ml INH RQ8 [facility] Last Admin: 09/28/17 17:08 Dose: 3 ml Aspirin (Aspirin Chewable) 81 mg PEG DAILY [facility] Last Admin: 09/28/17 09:59 Dose: 81 mg Carvedilol (Coreg) 3.125 mg PEG BID [facility] Last Admin: 09/28/17 17:18 Dose: 3.125 mg Enoxaparin Sodium (Lovenox) 30 mg SC DAILY [facility] Last Admin: 09/28/17 09:59 Dose: 30 mg Famotidine (Pepcid) 20 mg PEG DAILY [facility] Last Admin: 09/28/17 09:59 Dose: 20 mg Finasteride (Proscar) 5 mg PEG DAILY [facility] Last Admin: 09/28/17 09:59 Dose: 5 mg Dextrose/Sodium Chloride (Dextrose 5%/0.45% Ns 1000 Ml) 1,000 mls @ 75 mls/hr IV .[id number] [facility] Last Admin: 09/28/17 15:12 Dose: 75 mls/hr Levetiracetam (Keppra) 500 mg PEG BID [facility] Last Admin: 09/28/17 17:18 Dose: 500 mg Saccharomyces Boulardii (Florastor) 250 mg PEG DAILY [facility] Last Admin: 09/28/17 09:59 Dose: 250 mg Scopolamine (Transderm-Scop) 1 patch TD Q3D [facility] Last Admin: 09/27/17 17:48 Dose: 1 patch Tamsulosin HCl (Flomax) 0.4 mg PEG DAILY [facility] Last Admin: 09/28/17 09:59 Dose: 0.4 mg - Labs Labs: 09/28/17 08:43 09/28/17 08:43 PT 10.6 SECONDS (9.7-12.2) 11/24/15 14:10 INR 1.0 11/24/15 14:10 APTT 25 SECONDS (21-34) 11/24/15 14:10 Attending/Attestation - Attestation I have personally seen and examined this patient.: Yes I have fully participated in the care of the patient.: Yes I have reviewed all pertinent clinical information, including history, physical exam and plan: Yes Notes (Text): Ptient was seen and examined.He was sob with secretion.d/w RN recurrent suction with blood stained sputum. chest x ray done-no acute changes,no fever,feeding held this morning.He is better this afternoon we will resume feeding Discussed with the resident I agree with the documentation assessment and the plan of the resident
[2017-09-28 08:49] LABS: BASO # 0.1 K/uL (0.0-0.2); BASO % 0.6 % (0.0-2.0); EOS # 0.4 K/uL (0.0-0.7); HEMOGLOBIN 11.1 g/dL (12.0-18.0); LYMPH # 2.1 K/uL (1.0-4.3); LYMPH % 21.5 % (20.0-40.0); MEAN CELL VOLUME 88.8 fL (80.0-94.0); MEAN CORPUSCULAR HEMOGLOBIN 29.7 pg (27.0-31.0); MEAN CORPUSCULAR HGB CONC 33.4 g/dL (33.0-37.0); MEAN PLATELET VOLUME 8.4 fL (7.2-11.7); MONO % 10.4 % (0.0-10.0); NEUT # 6.2 K/uL (1.8-7.0); NEUT % 63.5 % (50.0-75.0); RBC 3.73 Mil/uL (4.40-5.90); RED CELL DISTRIBUTION WIDTH 15.7 % (11.5-14.5); WHITE BLOOD COUNT 9.8 K/uL (4.8-10.8)
[2017-09-28 09:01] LABS: ALBUMIN 3.5 g/dL (3.5-5.0)
[2017-09-28 09:03] LABS: GFR NON-AFRICAN AMERICAN > 60
[2017-09-28 09:04] LABS: ALB/GLOB RATIO 0.8 (1.0-2.1); ALT/SGPT 46 U/L (21-72); AST/SGOT 25 U/L (17-59); BLOOD UREA NITROGEN 14 mg/dL (9-20)
[2017-09-28] MEDS: Enoxaparin 30 mg Syringe SC SCH (09:59)
[2017-09-28] MEDS: levETIRAcetam 100 mg/ml (5ml) Oral Syringe PEG SCH ×2 (09:59→17:18)
[2017-09-28] MEDS: Saccharomyces Boulardi 250 mg Cap PEG SCH (09:59)
--- NOTE | 2017-09-28 13:29 | RAD ---
HISTORY: Wheezing. COMPARISON: 07/21/2017 FINDINGS: LUNGS: No active pulmonary disease. PLEURA: No significant pleural effusion identified, no pneumothorax apparent. CARDIOVASCULAR: Normal. OSSEOUS STRUCTURES: No significant abnormalities. VISUALIZED UPPER ABDOMEN: Normal. Incompletely visualized PEG tube OTHER FINDINGS: Tracheostomy device is visualized in satisfactory position. IMPRESSION: No active disease. No significant interval change compared to the prior examination(s). Please note: No preliminary interpretation of this examination rendered by emergency department personnel.
--- NOTE | 2017-09-29 06:59 | CP.PCM.PN ---
<Ben Martell R - Last Filed: 09/29/17 06:57> Subjective - Date & Time of Evaluation Date of Evaluation: 09/29/17 Time of Evaluation: 06:57 - Subjective Subjective: PGY-1 medicine note. HPI: Patient was seen and examined at bedside. ROS unattainable due to anoxic brain injury. Objective - Vital Signs/Intake and Output Vital Signs (last 24 hours): Temp Pulse Resp BP Pulse Ox 98 F 77 20 122/78 98 09/29/17 00:00 09/29/17 00:00 09/29/17 00:00 09/29/17 00:00 09/29/17 00:00 Intake and Output: 09/28/17 09/29/17 18:59 06:59 Intake Total 755 780 Output Total 600 350 Balance 155 430 - Medications Medications: Current Medications Acetylcysteine (Acetylcysteine 20%) 4 ml INH RQ8 [facility] Last Admin: 09/28/17 23:31 Dose: 4 ml Albuterol/Ipratropium (Duoneb 3 Mg/0.5 Mg (3 Ml) Ud) 3 ml INH RQ8 [facility] Last Admin: 09/28/17 23:31 Dose: 3 ml Aspirin (Aspirin Chewable) 81 mg PEG DAILY [facility] Last Admin: 09/28/17 09:59 Dose: 81 mg Carvedilol (Coreg) 3.125 mg PEG BID [facility] Last Admin: 09/28/17 17:18 Dose: 3.125 mg Enoxaparin Sodium (Lovenox) 30 mg SC DAILY [facility] Last Admin: 09/28/17 09:59 Dose: 30 mg Famotidine (Pepcid) 20 mg PEG DAILY [facility] Last Admin: 09/28/17 09:59 Dose: 20 mg Finasteride (Proscar) 5 mg PEG DAILY [facility] Last Admin: 09/28/17 09:59 Dose: 5 mg Dextrose/Sodium Chloride (Dextrose 5%/0.45% Ns 1000 Ml) 1,000 mls @ 75 mls/hr IV .[id number] [facility] Last Admin: 09/28/17 15:12 Dose: 75 mls/hr Levetiracetam (Keppra) 500 mg PEG BID [facility] Last Admin: 09/28/17 17:18 Dose: 500 mg Saccharomyces Boulardii (Florastor) 250 mg PEG DAILY [facility] Last Admin: 09/28/17 09:59 Dose: 250 mg Scopolamine (Transderm-Scop) 1 patch TD Q3D [facility] Last Admin: 09/27/17 17:48 Dose: 1 patch Tamsulosin HCl (Flomax) 0.4 mg PEG DAILY [facility] Last Admin: 09/28/17 09:59 Dose: 0.4 mg - Labs Labs: 09/28/17 08:43 09/28/17 08:43 PT 10.6 SECONDS (9.7-12.2) 11/24/15 14:10 INR 1.0 11/24/15 14:10 APTT 25 SECONDS (21-34) 11/24/15 14:10 - Additional Findings Additional findings: - Constitutional Appears: Chronically Ill - Additional Findings Additional findings: - Head Exam Head Exam: ATRAUMATIC, NORMAL INSPECTION - Eye Exam Eye Exam: absent: EOMI - ENT Exam ENT Exam: Mucous Membranes Moist - Neck Exam Neck Exam: Normal Inspection - Respiratory Exam Respiratory Exam: NORMAL BREATHING PATTERN. absent: Clear to Ausculation Bilateral Additional comments: trach collar in place - Cardiovascular Exam Cardiovascular Exam: REGULAR RHYTHM. absent: Bradycardia, Tachycardia - GI/Abdominal Exam GI & Abdominal Exam: Soft - Exam Additional comments: baker condom in place - Extremities Exam Extremities Exam: Normal Inspection - Neurological Exam Neurological Exam: Altered - Skin Skin Exam: Dry, Intact, Normal Color, Warm Assessment and Plan - Assessment and Plan (Free Text) Assessment: Anoxic encephalopathy s/p cardiac arrest in 05/2015 no acute changes Pt has non spontaneous movements. Continue tube feeds- goal of 60ml/hr, feedings held at night due to fluid overload Respiratory failure Trach in place, continue daily monitoring for secretions. No change in management at this time. Continue with aggressive suctioning multiple times a day per respiratory therapist. Monitor for signs of respiratory distress Thick secretions Duoneb 3ml INH Q6 and Mucomyst 4ml INH Q6H Scopolamine 1 patch TD Q3D [facility] Repeat CXR on 05/28/17: linear increased consolidative changes in the right mid- lung zone and left lung base which may represent atelectasis and/or infiltrate. Questionable trace left pleural effusion. moderate venous congestion. cardiomegaly. degenerative changes in the spine and shoulders 09/09: Secretions suctioned at bedside Leukocytosis secondary to UTI. Resolved 08/10: WBC 8.2 afebrile Meropenem (started 07/22) - per Dr. Armstrong continue for a total of 2 weeks - Discontinued 08/05/17 ID consult: Dr. Armstrong --> help appreciated Urinary retention 07/21: NS stopped because tube feeds restarted 07/20: Urine dark in color, monitor, continue NS at 50 ml per hour 07/07/17: Catheter flushed, patient output approx. 500mL within one hour post flush. 06/27/17: Continue bladder massages to aid in voiding. 06/25/17: Patient voids with movement. Continue bladder massages to aid in voiding. 06/23/17: Patient will need to have daily bladder massage to allow for complete voiding 06/17/17: Nursing communication placed in: straight catherization with bladder scan> 100ml 06/08: urinary retention yesterday, was given 40mg lasix iv and patient was able to urinate through condom baker Take note condom cath not always securely in place so Is and Os are approximate as patient does wet bed Ordered- new condom catheter on 05/22/17 Flomax 0.4mg PEG daily Proscar 5mg PEG daily continue Bethanecol 50mg PEG TID- started after persistent retention and found to be effective. monitor I's and O's - I/O: 780/350 Check bladder scan for residual urine three times weekly Hypokalemia, resolved K+ on 08/10: 4.2 Sacral ulcer Healed Cont with offloading/cushioning/turning Continue frequent turning, protective ointment and skin checks. History of coronary artery disease s/p cardiac stents on 06/13/15 Cont ASA 81mg via PEG daily Cont Coreg 3.125mg PEG BID Cont Plavix 75 mg PEG daily Seizures Continue Keppra 500mg PEG BID for seizure prophylaxis Monitor for activity Lower extremity edema Improved SCDs in place Pressure ulcer boots on b/l Continue to monitor Prophylactic measure Pepcid 20 mg PEG BID Lovenox 40mg SC daily SCDs and offloading boots continue to turn and reposition q2hrs Continue to monitor medication administrations and clinical presentation weekly labs. vasoline ointment applied to feet prn to prevent hyperkeratosis Please hold feeding from 10pm-6am, placed into nursing communication Vitamin A & D for lips There is no update at this time. <Jeison Moore - Last Filed: 09/30/17 12:42> Objective - Vital Signs/Intake and Output Vital Signs (last 24 hours): Temp Pulse Resp BP Pulse Ox 98.2 F 81 20 131/82 98 09/30/17 07:20 09/30/17 07:20 09/30/17 07:20 09/30/17 07:20 09/30/17 07:20 Intake and Output: 09/30/17 09/30/17 06:59 18:59 Intake Total 1660 Output Total 1001 Balance 659 - Medications Medications: Current Medications Acetylcysteine (Acetylcysteine 20%) 4 ml INH RQ8 [facility] Last Admin: 09/30/17 01:10 Dose: 4 ml Albuterol/Ipratropium (Duoneb 3 Mg/0.5 Mg (3 Ml) Ud) 3 ml INH RQ8 [facility] Last Admin: 09/30/17 07:28 Dose: 3 ml Aspirin (Aspirin Chewable) 81 mg PEG DAILY [facility] Last Admin: 09/30/17 09:10 Dose: 81 mg Carvedilol (Coreg) 3.125 mg PEG BID [facility] Last Admin: 09/30/17 09:10 Dose: 3.125 mg Enoxaparin Sodium (Lovenox) 30 mg SC DAILY [facility] Last Admin: 09/30/17 09:11 Dose: 30 mg Famotidine (Pepcid) 20 mg PEG DAILY [facility] Last Admin: 09/30/17 09:12 Dose: 20 mg Finasteride (Proscar) 5 mg PEG DAILY [facility] Last Admin: 09/30/17 09:12 Dose: 5 mg Dextrose/Sodium Chloride (Dextrose 5%/0.45% Ns 1000 Ml) 1,000 mls @ 75 mls/hr IV .[id number] [facility] Last Admin: 09/28/17 15:12 Dose: 75 mls/hr Levetiracetam (Keppra) 500 mg PEG BID [facility] Last Admin: 09/30/17 09:11 Dose: 500 mg Saccharomyces Boulardii (Florastor) 250 mg PEG DAILY [facility] Last Admin: 09/30/17 09:11 Dose: 250 mg Scopolamine (Transderm-Scop) 1 patch TD Q3D [facility] Last Admin: 09/27/17 17:48 Dose: 1 patch Tamsulosin HCl (Flomax) 0.4 mg PEG DAILY [facility] Last Admin: 09/30/17 09:11 Dose: 0.4 mg - Labs Labs: 09/28/17 08:43 09/28/17 08:43 PT 10.6 SECONDS (9.7-12.2) 11/24/15 14:10 INR 1.0 11/24/15 14:10 APTT 25 SECONDS (21-34) 11/24/15 14:10 Attending/Attestation - Attestation I have personally seen and examined this patient.: Yes I have fully participated in the care of the patient.: Yes I have reviewed all pertinent clinical information, including history, physical exam and plan: Yes Notes (Text): Patient was seen and examined,lying comfortable,no SOB,No fever Patient's midline removed today.He is not on IV meds. He was here without IV line in the past with no issues. We will continue feeding and meds via Gt as needed d/W Resident I agree with the resident's documentation of the assessment and the plan
[2017-09-29] MEDS: Albuterol-Ipratrop 3 mg / 0.5 (3 ml) UD INH SCH ×2 (08:05→16:12)
[2017-09-29] MEDS: Acetylcysteine 20% Inhal Soln (4ml) INH SCH ×2 (08:05→16:12)
[2017-09-29] MEDS: Enoxaparin 30 mg Syringe SC SCH (10:33)
[2017-09-29] MEDS: levETIRAcetam 100 mg/ml (5ml) Oral Syringe PEG SCH ×2 (10:33→17:33)
[2017-09-29] MEDS: Saccharomyces Boulardi 250 mg Cap PEG SCH (10:34)
[2017-09-30] MEDS: Acetylcysteine 20% Inhal Soln (4ml) INH SCH ×3 (01:10→15:55)
[2017-09-30] MEDS: Albuterol-Ipratrop 3 mg / 0.5 (3 ml) UD INH SCH ×3 (01:10→15:55)
--- NOTE | 2017-09-30 06:53 | CP.PCM.PN ---
<Ben Martell R - Last Filed: 09/30/17 06:52> Subjective - Date & Time of Evaluation Date of Evaluation: 09/30/17 Time of Evaluation: 06:52 - Subjective Subjective: PGY-[address] Moore. HPI: Patient was seen and examined at bedside. ROS unattainable due to anoxic brain injury. Midline was removed yesterday, dressing is clean/dry/intact. Objective - Vital Signs/Intake and Output Vital Signs (last 24 hours): Temp Pulse Resp BP Pulse Ox 98.9 F 99 H 20 116/74 99 09/29/17 23:36 09/29/17 23:36 09/29/17 23:36 09/29/17 23:36 09/29/17 23:36 Intake and Output: 09/29/17 09/30/17 18:59 06:59 Intake Total 780 880 Output Total 700 601 Balance 80 279 - Medications Medications: Current Medications Acetylcysteine (Acetylcysteine 20%) 4 ml INH RQ8 [facility] Last Admin: 09/30/17 01:10 Dose: 4 ml Albuterol/Ipratropium (Duoneb 3 Mg/0.5 Mg (3 Ml) Ud) 3 ml INH RQ8 [facility] Last Admin: 09/30/17 01:10 Dose: 3 ml Aspirin (Aspirin Chewable) 81 mg PEG DAILY [facility] Last Admin: 09/29/17 10:34 Dose: 81 mg Carvedilol (Coreg) 3.125 mg PEG BID [facility] Last Admin: 09/29/17 17:33 Dose: 3.125 mg Enoxaparin Sodium (Lovenox) 30 mg SC DAILY [facility] Last Admin: 09/29/17 10:33 Dose: 30 mg Famotidine (Pepcid) 20 mg PEG DAILY [facility] Last Admin: 09/29/17 10:34 Dose: 20 mg Finasteride (Proscar) 5 mg PEG DAILY [facility] Last Admin: 09/29/17 10:34 Dose: 5 mg Dextrose/Sodium Chloride (Dextrose 5%/0.45% Ns 1000 Ml) 1,000 mls @ 75 mls/hr IV .[id number] [facility] Last Admin: 09/28/17 15:12 Dose: 75 mls/hr Levetiracetam (Keppra) 500 mg PEG BID [facility] Last Admin: 09/29/17 17:33 Dose: 500 mg Saccharomyces Boulardii (Florastor) 250 mg PEG DAILY [facility] Last Admin: 09/29/17 10:34 Dose: 250 mg Scopolamine (Transderm-Scop) 1 patch TD Q3D [facility] Last Admin: 09/27/17 17:48 Dose: 1 patch Tamsulosin HCl (Flomax) 0.4 mg PEG DAILY [facility] Last Admin: 09/29/17 10:34 Dose: 0.4 mg - Labs Labs: 09/28/17 08:43 09/28/17 08:43 PT 10.6 SECONDS (9.7-12.2) 11/24/15 14:10 INR 1.0 11/24/15 14:10 APTT 25 SECONDS (21-34) 11/24/15 14:10 - Additional Findings Additional findings: - Constitutional Appears: Chronically Ill - Additional Findings Additional findings: - Head Exam Head Exam: ATRAUMATIC, NORMAL INSPECTION - Eye Exam Eye Exam: absent: EOMI - ENT Exam ENT Exam: Mucous Membranes Moist - Neck Exam Neck Exam: Normal Inspection - Respiratory Exam Respiratory Exam: NORMAL BREATHING PATTERN. absent: Clear to Ausculation Bilateral Additional comments: trach collar in place - Cardiovascular Exam Cardiovascular Exam: REGULAR RHYTHM. absent: Bradycardia, Tachycardia - GI/Abdominal Exam GI & Abdominal Exam: Soft - Exam Additional comments: baker condom in place - Extremities Exam Extremities Exam: Normal Inspection - Neurological Exam Neurological Exam: Altered - Skin Skin Exam: Dry, Intact, Normal Color, Warm Assessment and Plan - Assessment and Plan (Free Text) Assessment: Anoxic encephalopathy s/p cardiac arrest in 05/2015 no acute changes Pt has non spontaneous movements. Continue tube feeds- goal of 60ml/hr, feedings held at night due to fluid overload Respiratory failure Trach in place, continue daily monitoring for secretions. No change in management at this time. Continue with aggressive suctioning multiple times a day per respiratory therapist. Monitor for signs of respiratory distress Thick secretions Duoneb 3ml INH Q6 and Mucomyst 4ml INH Q6H Scopolamine 1 patch TD Q3D [facility] Repeat CXR on 05/28/17: linear increased consolidative changes in the right mid- lung zone and left lung base which may represent atelectasis and/or infiltrate. Questionable trace left pleural effusion. moderate venous congestion. cardiomegaly. degenerative changes in the spine and shoulders 09/09: Secretions suctioned at bedside Leukocytosis secondary to UTI. Resolved 08/10: WBC 8.2 afebrile Meropenem (started 07/22) - per Dr. Armstrong continue for a total of 2 weeks - Discontinued 08/05/17 ID consult: Dr. Armstrong --> help appreciated Urinary retention 07/21: NS stopped because tube feeds restarted 07/20: Urine dark in color, monitor, continue NS at 50 ml per hour 07/07/17: Catheter flushed, patient output approx. 500mL within one hour post flush. 06/27/17: Continue bladder massages to aid in voiding. 06/25/17: Patient voids with movement. Continue bladder massages to aid in voiding. 06/23/17: Patient will need to have daily bladder massage to allow for complete voiding 06/17/17: Nursing communication placed in: straight catherization with bladder scan> 100ml 06/08: urinary retention yesterday, was given 40mg lasix iv and patient was able to urinate through condom baker Take note condom cath not always securely in place so Is and Os are approximate as patient does wet bed Ordered- new condom catheter on 05/22/17 Flomax 0.4mg PEG daily Proscar 5mg PEG daily continue Bethanecol 50mg PEG TID- started after persistent retention and found to be effective. monitor I's and O's - I/O: 780/350 Check bladder scan for residual urine three times weekly Hypokalemia, resolved K+ on 08/10: 4.2 Sacral ulcer Healed Cont with offloading/cushioning/turning Continue frequent turning, protective ointment and skin checks. History of coronary artery disease s/p cardiac stents on 06/13/15 Cont ASA 81mg via PEG daily Cont Coreg 3.125mg PEG BID Cont Plavix 75 mg PEG daily Seizures Continue Keppra 500mg PEG BID for seizure prophylaxis Monitor for activity Lower extremity edema Improved SCDs in place Pressure ulcer boots on /l Continue to monitor Prophylactic measure Pepcid 20 mg PEG BID Lovenox 40mg SC daily SCDs and offloading boots continue to turn and reposition q2hrs Continue to monitor medication administrations and clinical presentation weekly labs. vasoline ointment applied to feet prn to prevent hyperkeratosis Please hold feeding from 10pm-6am, placed into nursing communication Vitamin A & D for lips There is no update at this time. <Jeison Moore - Last Filed: 10/01/17 13:30> Objective - Vital Signs/Intake and Output Vital Signs (last 24 hours): Temp Pulse Resp BP Pulse Ox 98.4 F 81 20 130/82 99 10/01/17 07:30 10/01/17 07:30 10/01/17 07:30 10/01/17 07:30 10/01/17 07:30 Intake and Output: 10/01/17 10/01/17 06:59 18:59 Intake Total 1760 Output Total 101 Balance 1659 - Medications Medications: Current Medications Acetylcysteine (Acetylcysteine 20%) 4 ml INH RQ8 [facility] Last Admin: 10/01/17 07:13 Dose: 4 ml Albuterol/Ipratropium (Duoneb 3 Mg/0.5 Mg (3 Ml) Ud) 3 ml INH RQ8 [facility] Last Admin: 10/01/17 07:13 Dose: 3 ml Aspirin (Aspirin Chewable) 81 mg PEG DAILY [facility] Last Admin: 10/01/17 10:38 Dose: 81 mg Carvedilol (Coreg) 3.125 mg PEG BID [facility] Last Admin: 10/01/17 10:38 Dose: 3.125 mg Enoxaparin Sodium (Lovenox) 30 mg SC DAILY [facility] Last Admin: 10/01/17 10:38 Dose: 30 mg Famotidine (Pepcid) 20 mg PEG DAILY [facility] Last Admin: 10/01/17 10:38 Dose: 20 mg Finasteride (Proscar) 5 mg PEG DAILY [facility] Last Admin: 10/01/17 10:39 Dose: 5 mg Dextrose/Sodium Chloride (Dextrose 5%/0.45% Ns 1000 Ml) 1,000 mls @ 75 mls/hr IV .[id number] [facility] Last Admin: 09/28/17 15:12 Dose: 75 mls/hr Levetiracetam (Keppra) 500 mg PEG BID [facility] Last Admin: 10/01/17 10:38 Dose: 500 mg Saccharomyces Boulardii (Florastor) 250 mg PEG DAILY [facility] Last Admin: 10/01/17 10:39 Dose: 250 mg Scopolamine (Transderm-Scop) 1 patch TD Q3D [facility] Last Admin: 09/30/17 17:53 Dose: 1 patch Tamsulosin HCl (Flomax) 0.4 mg PEG DAILY [facility] Last Admin: 10/01/17 10:38 Dose: 0.4 mg - Labs Labs: 09/28/17 08:43 09/28/17 08:43 PT 10.6 SECONDS (9.7-12.2) 11/24/15 14:10 INR 1.0 11/24/15 14:10 APTT 25 SECONDS (21-34) 11/24/15 14:10 Attending/Attestation - Attestation I have personally seen and examined this patient.: Yes I have fully participated in the care of the patient.: Yes I have reviewed all pertinent clinical information, including history, physical exam and plan: Yes Notes (Text): Patient was seen and examined Not in discomfort I agree with the resident's documentation of the assessment and the plan
[2017-09-30] MEDS: Saccharomyces Boulardi 250 mg Cap PEG SCH (09:11)
[2017-09-30] MEDS: Enoxaparin 30 mg Syringe SC SCH (09:11)
[2017-09-30] MEDS: levETIRAcetam 100 mg/ml (5ml) Oral Syringe PEG SCH ×2 (09:11→17:52)
[2017-10-01] MEDS: Albuterol-Ipratrop 3 mg / 0.5 (3 ml) UD INH SCH ×3 (01:21→16:16)
[2017-10-01] MEDS: Acetylcysteine 20% Inhal Soln (4ml) INH SCH ×3 (01:21→16:16)
--- NOTE | 2017-10-01 06:52 | CP.PCM.PN ---
<Ben Martell R - Last Filed: 10/01/17 06:49> Subjective - Date & Time of Evaluation Date of Evaluation: 10/01/17 Time of Evaluation: 06:50 - Subjective Subjective: PGY-[address] Moore. Patient was seen and examined at bedside. ROS unattainable due to anoxic brain injury. Midline was removed 09/29/17, dressing is clean/dry/intact. Objective - Vital Signs/Intake and Output Vital Signs (last 24 hours): Temp Pulse Resp BP Pulse Ox 98.6 F 87 20 106/73 98 09/30/17 23:51 09/30/17 23:51 09/30/17 23:51 09/30/17 23:51 09/30/17 23:51 Intake and Output: 09/30/17 10/01/17 18:59 06:59 Intake Total 780 880 Output Total 700 1 Balance 80 879 - Medications Medications: Current Medications Acetylcysteine (Acetylcysteine 20%) 4 ml INH RQ8 [facility] Last Admin: 10/01/17 01:21 Dose: 4 ml Albuterol/Ipratropium (Duoneb 3 Mg/0.5 Mg (3 Ml) Ud) 3 ml INH RQ8 [facility] Last Admin: 10/01/17 01:21 Dose: 3 ml Aspirin (Aspirin Chewable) 81 mg PEG DAILY [facility] Last Admin: 09/30/17 09:10 Dose: 81 mg Carvedilol (Coreg) 3.125 mg PEG BID [facility] Last Admin: 09/30/17 17:52 Dose: 3.125 mg Enoxaparin Sodium (Lovenox) 30 mg SC DAILY [facility] Last Admin: 09/30/17 09:11 Dose: 30 mg Famotidine (Pepcid) 20 mg PEG DAILY [facility] Last Admin: 09/30/17 09:12 Dose: 20 mg Finasteride (Proscar) 5 mg PEG DAILY [facility] Last Admin: 09/30/17 09:12 Dose: 5 mg Dextrose/Sodium Chloride (Dextrose 5%/0.45% Ns 1000 Ml) 1,000 mls @ 75 mls/hr IV .[id number] [facility] Last Admin: 09/28/17 15:12 Dose: 75 mls/hr Levetiracetam (Keppra) 500 mg PEG BID [facility] Last Admin: 09/30/17 17:52 Dose: 500 mg Saccharomyces Boulardii (Florastor) 250 mg PEG DAILY [facility] Last Admin: 09/30/17 09:11 Dose: 250 mg Scopolamine (Transderm-Scop) 1 patch TD Q3D [facility] Last Admin: 09/30/17 17:53 Dose: 1 patch Tamsulosin HCl (Flomax) 0.4 mg PEG DAILY [facility] Last Admin: 09/30/17 09:11 Dose: 0.4 mg - Labs Labs: 09/28/17 08:43 09/28/17 08:43 PT 10.6 SECONDS (9.7-12.2) 11/24/15 14:10 INR 1.0 11/24/15 14:10 APTT 25 SECONDS (21-34) 11/24/15 14:10 - Additional Findings Additional findings: - Constitutional Appears: Chronically Ill - Additional Findings Additional findings: - Head Exam Head Exam: ATRAUMATIC, NORMAL INSPECTION - Eye Exam Eye Exam: absent: EOMI - ENT Exam ENT Exam: Mucous Membranes Moist - Neck Exam Neck Exam: Normal Inspection - Respiratory Exam Respiratory Exam: NORMAL BREATHING PATTERN. absent: Clear to Ausculation Bilateral Additional comments: trach collar in place - Cardiovascular Exam Cardiovascular Exam: REGULAR RHYTHM. absent: Bradycardia, Tachycardia - GI/Abdominal Exam GI & Abdominal Exam: Soft - Exam Additional comments: baker condom in place - Extremities Exam Extremities Exam: Normal Inspection - Neurological Exam Neurological Exam: Altered - Skin Skin Exam: Dry, Intact, Normal Color, Warm Assessment and Plan - Assessment and Plan (Free Text) Assessment: Anoxic encephalopathy s/p cardiac arrest in 05/2015 no acute changes Pt has non spontaneous movements. Continue tube feeds- goal of 60ml/hr, feedings held at night due to fluid overload Respiratory failure Trach in place, continue daily monitoring for secretions. No change in management at this time. Continue with aggressive suctioning multiple times a day per respiratory therapist. Monitor for signs of respiratory distress Thick secretions Duoneb 3ml INH Q6 and Mucomyst 4ml INH Q6H Scopolamine 1 patch TD Q3D [facility] Repeat CXR on 05/28/17: linear increased consolidative changes in the right mid- lung zone and left lung base which may represent atelectasis and/or infiltrate. Questionable trace left pleural effusion. moderate venous congestion. cardiomegaly. degenerative changes in the spine and shoulders 09/09: Secretions suctioned at bedside Leukocytosis secondary to UTI. Resolved 08/10: WBC 8.2 afebrile Meropenem (started 07/22) - per Dr. Armstrong continue for a total of 2 weeks - Discontinued 08/05/17 ID consult: Dr. Armstrong --> help appreciated Urinary retention 07/21: NS stopped because tube feeds restarted 07/20: Urine dark in color, monitor, continue NS at 50 ml per hour 07/07/17: Catheter flushed, patient output approx. 500mL within one hour post flush. 06/27/17: Continue bladder massages to aid in voiding. 06/25/17: Patient voids with movement. Continue bladder massages to aid in voiding. 06/23/17: Patient will need to have daily bladder massage to allow for complete voiding 06/17/17: Nursing communication placed in: straight catherization with bladder scan> 100ml 06/08: urinary retention yesterday, was given 40mg lasix iv and patient was able to urinate through condom baker Take note condom cath not always securely in place so Is and Os are approximate as patient does wet bed Ordered- new condom catheter on 05/22/17 Flomax 0.4mg PEG daily Proscar 5mg PEG daily continue Bethanecol 50mg PEG TID- started after persistent retention and found to be effective. monitor I's and O's - I/O: 780/350 Check bladder scan for residual urine three times weekly Hypokalemia, resolved K+ on 08/10: 4.2 Sacral ulcer Healed Cont with offloading/cushioning/turning Continue frequent turning, protective ointment and skin checks. History of coronary artery disease s/p cardiac stents on 06/13/15 Cont ASA 81mg via PEG daily Cont Coreg 3.125mg PEG BID Cont Plavix 75 mg PEG daily Seizures Continue Keppra 500mg PEG BID for seizure prophylaxis Monitor for activity Lower extremity edema Improved SCDs in place Pressure ulcer boots on /l Continue to monitor Prophylactic measure Pepcid 20 mg PEG BID Lovenox 40mg SC daily SCDs and offloading boots continue to turn and reposition q2hrs Continue to monitor medication administrations and clinical presentation weekly labs. vasoline ointment applied to feet prn to prevent hyperkeratosis Please hold feeding from 10pm-6am, placed into nursing communication Vitamin A & D for lips There is no update at this time. <Jeison Moore - Last Filed: 10/02/17 17:03> Objective - Vital Signs/Intake and Output Vital Signs (last 24 hours): Temp Pulse Resp BP Pulse Ox 98.1 F 85 20 120/81 100 10/02/17 15:00 10/02/17 15:00 10/02/17 15:00 10/02/17 15:00 10/02/17 15:00 Intake and Output: 10/02/17 10/02/17 06:59 18:59 Intake Total 1460 780 Output Total 800 1000 Balance 660 -220 - Medications Medications: Current Medications Acetylcysteine (Acetylcysteine 20%) 4 ml INH RQ8 [facility] Last Admin: 10/02/17 16:01 Dose: 4 ml Albuterol/Ipratropium (Duoneb 3 Mg/0.5 Mg (3 Ml) Ud) 3 ml INH RQ8 [facility] Last Admin: 10/02/17 16:01 Dose: 3 ml Aspirin (Aspirin Chewable) 81 mg PEG DAILY [facility] Last Admin: 10/02/17 09:55 Dose: 81 mg Carvedilol (Coreg) 3.125 mg PEG BID [facility] Last Admin: 10/02/17 09:56 Dose: 3.125 mg Enoxaparin Sodium (Lovenox) 30 mg SC DAILY [facility] Last Admin: 10/02/17 09:56 Dose: 30 mg Famotidine (Pepcid) 20 mg PEG DAILY [facility] Last Admin: 10/02/17 09:55 Dose: 20 mg Finasteride (Proscar) 5 mg PEG DAILY [facility] Last Admin: 10/02/17 09:56 Dose: 5 mg Dextrose/Sodium Chloride (Dextrose 5%/0.45% Ns 1000 Ml) 1,000 mls @ 75 mls/hr IV .[id number] [facility] Last Admin: 09/28/17 15:12 Dose: 75 mls/hr Levetiracetam (Keppra) 500 mg PEG BID [facility] Last Admin: 10/02/17 09:56 Dose: 500 mg Saccharomyces Boulardii (Florastor) 250 mg PEG DAILY [facility] Last Admin: 10/02/17 09:56 Dose: 250 mg Scopolamine (Transderm-Scop) 1 patch TD Q3D [facility] Last Admin: 09/30/17 17:53 Dose: 1 patch Tamsulosin HCl (Flomax) 0.4 mg PEG DAILY [facility] Last Admin: 10/02/17 09:55 Dose: 0.4 mg - Labs Labs: 09/28/17 08:43 09/28/17 08:43 PT 10.6 SECONDS (9.7-12.2) 11/24/15 14:10 INR 1.0 11/24/15 14:10 APTT 25 SECONDS (21-34) 11/24/15 14:10 Attending/Attestation - Attestation I have personally seen and examined this patient.: Yes I have fully participated in the care of the patient.: Yes I have reviewed all pertinent clinical information, including history, physical exam and plan: Yes Notes (Text): The patient was seen and examined.No changes I agree with the residents documentation 10/02/17 17:02
[2017-10-01] MEDS: Enoxaparin 30 mg Syringe SC SCH (10:38)
[2017-10-01] MEDS: levETIRAcetam 100 mg/ml (5ml) Oral Syringe PEG SCH ×2 (10:38→18:19)
[2017-10-01] MEDS: Saccharomyces Boulardi 250 mg Cap PEG SCH (10:39)
[2017-10-02] MEDS: Albuterol-Ipratrop 3 mg / 0.5 (3 ml) UD INH SCH ×3 (00:08→16:01)
[2017-10-02] MEDS: Acetylcysteine 20% Inhal Soln (4ml) INH SCH ×3 (00:08→16:01)
--- NOTE | 2017-10-02 09:02 | CP.PCM.PN ---
<Judith Martinez - Last Filed: 10/02/17 08:59> Subjective - Date & Time of Evaluation Date of Evaluation: 10/02/17 Time of Evaluation: 09:00 - Subjective Subjective: PGY-[address] Moore. Patient was seen and examined at bedside. ROS unattainable due to anoxic brain injury. Midline was removed 09/29/17, dressing is clean/dry/intact. Objective - Vital Signs/Intake and Output Vital Signs (last 24 hours): Temp Pulse Resp BP Pulse Ox 97.6 F 77 20 122/82 99 10/02/17 07:46 10/02/17 07:46 10/02/17 07:46 10/02/17 07:46 10/02/17 07:46 Intake and Output: 10/02/17 10/02/17 06:59 18:59 Intake Total 1460 Output Total 800 Balance 660 - Medications Medications: Current Medications Acetylcysteine (Acetylcysteine 20%) 4 ml INH RQ8 [facility] Last Admin: 10/02/17 08:19 Dose: 4 ml Albuterol/Ipratropium (Duoneb 3 Mg/0.5 Mg (3 Ml) Ud) 3 ml INH RQ8 [facility] Last Admin: 10/02/17 08:19 Dose: 3 ml Aspirin (Aspirin Chewable) 81 mg PEG DAILY [facility] Last Admin: 10/01/17 10:38 Dose: 81 mg Carvedilol (Coreg) 3.125 mg PEG BID [facility] Last Admin: 10/01/17 18:19 Dose: 3.125 mg Enoxaparin Sodium (Lovenox) 30 mg SC DAILY [facility] Last Admin: 10/01/17 10:38 Dose: 30 mg Famotidine (Pepcid) 20 mg PEG DAILY [facility] Last Admin: 10/01/17 10:38 Dose: 20 mg Finasteride (Proscar) 5 mg PEG DAILY [facility] Last Admin: 10/01/17 10:39 Dose: 5 mg Dextrose/Sodium Chloride (Dextrose 5%/0.45% Ns 1000 Ml) 1,000 mls @ 75 mls/hr IV .[id number] [facility] Last Admin: 09/28/17 15:12 Dose: 75 mls/hr Levetiracetam (Keppra) 500 mg PEG BID [facility] Last Admin: 10/01/17 18:19 Dose: 500 mg Saccharomyces Boulardii (Florastor) 250 mg PEG DAILY [facility] Last Admin: 10/01/17 10:39 Dose: 250 mg Scopolamine (Transderm-Scop) 1 patch TD Q3D [facility] Last Admin: 09/30/17 17:53 Dose: 1 patch Tamsulosin HCl (Flomax) 0.4 mg PEG DAILY [facility] Last Admin: 10/01/17 10:38 Dose: 0.4 mg - Labs Labs: 09/28/17 08:43 09/28/17 08:43 PT 10.6 SECONDS (9.7-12.2) 11/24/15 14:10 INR 1.0 11/24/15 14:10 APTT 25 SECONDS (21-34) 11/24/15 14:10 - Additional Findings Additional findings: - Constitutional Appears: Chronically Ill - Additional Findings Additional findings: - Head Exam Head Exam: ATRAUMATIC, NORMAL INSPECTION - Eye Exam Eye Exam: absent: EOMI - ENT Exam ENT Exam: Mucous Membranes Moist - Neck Exam Neck Exam: Normal Inspection - Respiratory Exam Respiratory Exam: NORMAL BREATHING PATTERN. absent: rales, wheezes Additional comments: trach collar in place - Cardiovascular Exam Cardiovascular Exam: REGULAR RHYTHM. absent: Bradycardia, Tachycardia - GI/Abdominal Exam GI & Abdominal Exam: Soft - Exam Additional comments: baker condom in place - Extremities Exam Extremities Exam: Normal Inspection - Neurological Exam Neurological Exam: Altered - Skin Skin Exam: Dry, Intact, Normal Color, Warm Assessment and Plan - Assessment and Plan (Free Text) Plan: Anoxic encephalopathy s/p cardiac arrest in 05/2015 no acute changes Pt has non spontaneous movements. Continue tube feeds- goal of 60ml/hr, feedings held at night due to fluid overload Respiratory failure Trach in place, continue daily monitoring for secretions. No change in management at this time. Continue with aggressive suctioning multiple times a day per respiratory therapist. Monitor for signs of respiratory distress Thick secretions Duoneb 3ml INH Q6 and Mucomyst 4ml INH Q6H Scopolamine 1 patch TD Q3D [facility] Repeat CXR on 05/28/17: linear increased consolidative changes in the right mid- lung zone and left lung base which may represent atelectasis and/or infiltrate. Questionable trace left pleural effusion. moderate venous congestion. cardiomegaly. degenerative changes in the spine and shoulders 09/09: Secretions suctioned at bedside Leukocytosis secondary to UTI. Resolved 08/10: WBC 8.2 afebrile Meropenem (started 07/22) - per Dr. Armstrong continue for a total of 2 weeks - Discontinued 08/05/17 ID consult: Dr. Armstrong --> help appreciated Urinary retention 07/21: NS stopped because tube feeds restarted 07/20: Urine dark in color, monitor, continue NS at 50 ml per hour 07/07/17: Catheter flushed, patient output approx. 500mL within one hour post flush. 06/27/17: Continue bladder massages to aid in voiding. 06/25/17: Patient voids with movement. Continue bladder massages to aid in voiding. 06/23/17: Patient will need to have daily bladder massage to allow for complete voiding 06/17/17: Nursing communication placed in: straight catherization with bladder scan> 100ml 06/08: urinary retention yesterday, was given 40mg lasix iv and patient was able to urinate through condom baker Take note condom cath not always securely in place so Is and Os are approximate as patient does wet bed Ordered- new condom catheter on 05/22/17 Flomax 0.4mg PEG daily Proscar 5mg PEG daily continue Bethanecol 50mg PEG TID- started after persistent retention and found to be effective. monitor I's and O's - I/O: 780/350 Check bladder scan for residual urine three times weekly Hypokalemia, resolved K+ on 08/10: 4.2 Sacral ulcer Healed Cont with offloading/cushioning/turning Continue frequent turning, protective ointment and skin checks. History of coronary artery disease s/p cardiac stents on 06/13/15 Cont ASA 81mg via PEG daily Cont Coreg 3.125mg PEG BID Cont Plavix 75 mg PEG daily Seizures Continue Keppra 500mg PEG BID for seizure prophylaxis Monitor for activity Lower extremity edema Improved SCDs in place Pressure ulcer boots on b/l Continue to monitor Prophylactic measure Pepcid 20 mg PEG BID Lovenox 40mg SC daily SCDs and offloading boots continue to turn and reposition q2hrs Continue to monitor medication administrations and clinical presentation weekly labs. vasoline ointment applied to feet prn to prevent hyperkeratosis Please hold feeding from 10pm-6am, placed into nursing communication Vitamin A & D for lips There is no update at this time. <Jeison Moore - Last Filed: 10/02/17 17:04> Objective - Vital Signs/Intake and Output Vital Signs (last 24 hours): Temp Pulse Resp BP Pulse Ox 98.1 F 85 20 120/81 100 10/02/17 15:00 10/02/17 15:00 10/02/17 15:00 10/02/17 15:00 10/02/17 15:00 Intake and Output: 10/02/17 10/02/17 06:59 18:59 Intake Total 1460 780 Output Total 800 1000 Balance 660 -220 - Medications Medications: Current Medications Acetylcysteine (Acetylcysteine 20%) 4 ml INH RQ8 [facility] Last Admin: 10/02/17 16:01 Dose: 4 ml Albuterol/Ipratropium (Duoneb 3 Mg/0.5 Mg (3 Ml) Ud) 3 ml INH RQ8 [facility] Last Admin: 10/02/17 16:01 Dose: 3 ml Aspirin (Aspirin Chewable) 81 mg PEG DAILY [facility] Last Admin: 10/02/17 09:55 Dose: 81 mg Carvedilol (Coreg) 3.125 mg PEG BID [facility] Last Admin: 10/02/17 09:56 Dose: 3.125 mg Enoxaparin Sodium (Lovenox) 30 mg SC DAILY [facility] Last Admin: 10/02/17 09:56 Dose: 30 mg Famotidine (Pepcid) 20 mg PEG DAILY [facility] Last Admin: 10/02/17 09:55 Dose: 20 mg Finasteride (Proscar) 5 mg PEG DAILY [facility] Last Admin: 10/02/17 09:56 Dose: 5 mg Dextrose/Sodium Chloride (Dextrose 5%/0.45% Ns 1000 Ml) 1,000 mls @ 75 mls/hr IV .[id number] [facility] Last Admin: 09/28/17 15:12 Dose: 75 mls/hr Levetiracetam (Keppra) 500 mg PEG BID [facility] Last Admin: 10/02/17 09:56 Dose: 500 mg Saccharomyces Boulardii (Florastor) 250 mg PEG DAILY [facility] Last Admin: 10/02/17 09:56 Dose: 250 mg Scopolamine (Transderm-Scop) 1 patch TD Q3D [facility] Last Admin: 09/30/17 17:53 Dose: 1 patch Tamsulosin HCl (Flomax) 0.4 mg PEG DAILY [facility] Last Admin: 10/02/17 09:55 Dose: 0.4 mg - Labs Labs: 09/28/17 08:43 09/28/17 08:43 PT 10.6 SECONDS (9.7-12.2) 11/24/15 14:10 INR 1.0 11/24/15 14:10 APTT 25 SECONDS (21-34) 11/24/15 14:10 Attending/Attestation - Attestation I have personally seen and examined this patient.: Yes I have fully participated in the care of the patient.: Yes I have reviewed all pertinent clinical information, including history, physical exam and plan: Yes Notes (Text): Patient was seen and examined.Discussed with the RN No changes noted I agree with the documentation of the resident 10/02/17 17:03
[2017-10-02] MEDS: Saccharomyces Boulardi 250 mg Cap PEG SCH (09:56)
[2017-10-02] MEDS: levETIRAcetam 100 mg/ml (5ml) Oral Syringe PEG SCH ×2 (09:56→18:29)
[2017-10-02] MEDS: Enoxaparin 30 mg Syringe SC SCH (09:56)
[2017-10-03] MEDS: Albuterol-Ipratrop 3 mg / 0.5 (3 ml) UD INH SCH ×3 (00:10→15:47)
[2017-10-03] MEDS: Acetylcysteine 20% Inhal Soln (4ml) INH SCH ×3 (00:10→15:47)
--- NOTE | 2017-10-03 00:22 | CP.PCM.PN ---
<Ben Martell R - Last Filed: 10/03/17 00:21> Subjective - Date & Time of Evaluation Date of Evaluation: 10/03/17 Time of Evaluation: 00:21 - Subjective Subjective: PGY-[address] Moore. Patient was seen and examined at bedside. ROS unattainable due to anoxic brain injury. Midline was removed 09/29/17, dressing is clean/dry/intact. Objective - Vital Signs/Intake and Output Vital Signs (last 24 hours): Temp Pulse Resp BP Pulse Ox 98.4 F 78 20 121/80 98 10/02/17 23:43 10/02/17 23:43 10/02/17 23:43 10/02/17 23:43 10/02/17 23:43 Intake and Output: 10/02/17 10/03/17 18:59 06:59 Intake Total 780 Output Total 1000 600 Balance -220 -600 - Medications Medications: Current Medications Acetylcysteine (Acetylcysteine 20%) 4 ml INH RQ8 [facility] Last Admin: 10/03/17 00:10 Dose: 4 ml Albuterol/Ipratropium (Duoneb 3 Mg/0.5 Mg (3 Ml) Ud) 3 ml INH RQ8 [facility] Last Admin: 10/03/17 00:10 Dose: 3 ml Aspirin (Aspirin Chewable) 81 mg PEG DAILY [facility] Last Admin: 10/02/17 09:55 Dose: 81 mg Carvedilol (Coreg) 3.125 mg PEG BID [facility] Last Admin: 10/02/17 18:29 Dose: 3.125 mg Enoxaparin Sodium (Lovenox) 30 mg SC DAILY [facility] Last Admin: 10/02/17 09:56 Dose: 30 mg Famotidine (Pepcid) 20 mg PEG DAILY [facility] Last Admin: 10/02/17 09:55 Dose: 20 mg Finasteride (Proscar) 5 mg PEG DAILY [facility] Last Admin: 10/02/17 09:56 Dose: 5 mg Dextrose/Sodium Chloride (Dextrose 5%/0.45% Ns 1000 Ml) 1,000 mls @ 75 mls/hr IV .[id number] [facility] Last Admin: 09/28/17 15:12 Dose: 75 mls/hr Levetiracetam (Keppra) 500 mg PEG BID [facility] Last Admin: 10/02/17 18:29 Dose: 500 mg Saccharomyces Boulardii (Florastor) 250 mg PEG DAILY [facility] Last Admin: 10/02/17 09:56 Dose: 250 mg Scopolamine (Transderm-Scop) 1 patch TD Q3D [facility] Last Admin: 09/30/17 17:53 Dose: 1 patch Tamsulosin HCl (Flomax) 0.4 mg PEG DAILY [facility] Last Admin: 10/02/17 09:55 Dose: 0.4 mg - Labs Labs: 09/28/17 08:43 09/28/17 08:43 PT 10.6 SECONDS (9.7-12.2) 11/24/15 14:10 INR 1.0 11/24/15 14:10 APTT 25 SECONDS (21-34) 11/24/15 14:10 - Additional Findings Additional findings: - Constitutional Appears: Chronically Ill - Additional Findings Additional findings: - Head Exam Head Exam: ATRAUMATIC, NORMAL INSPECTION - Eye Exam Eye Exam: absent: EOMI - ENT Exam ENT Exam: Mucous Membranes Moist - Neck Exam Neck Exam: Normal Inspection - Respiratory Exam Respiratory Exam: NORMAL BREATHING PATTERN. absent: rales, wheezes Additional comments: trach collar in place - Cardiovascular Exam Cardiovascular Exam: REGULAR RHYTHM. absent: Bradycardia, Tachycardia - GI/Abdominal Exam GI & Abdominal Exam: Soft - Exam Additional comments: baker condom in place - Extremities Exam Extremities Exam: Normal Inspection - Neurological Exam Neurological Exam: Altered - Skin Skin Exam: Dry, Intact, Normal Color, Warm Assessment and Plan - Assessment and Plan (Free Text) Assessment: Anoxic encephalopathy s/p cardiac arrest in 05/2015 no acute changes Pt has non spontaneous movements. Continue tube feeds- goal of 60ml/hr, feedings held at night due to fluid overload Respiratory failure Trach in place, continue daily monitoring for secretions. No change in management at this time. Continue with aggressive suctioning multiple times a day per respiratory therapist. Monitor for signs of respiratory distress Thick secretions Duoneb 3ml INH Q6 and Mucomyst 4ml INH Q6H Scopolamine 1 patch TD Q3D [facility] Repeat CXR on 05/28/17: linear increased consolidative changes in the right mid- lung zone and left lung base which may represent atelectasis and/or infiltrate. Questionable trace left pleural effusion. moderate venous congestion. cardiomegaly. degenerative changes in the spine and shoulders 09/09: Secretions suctioned at bedside Leukocytosis secondary to UTI. Resolved 08/10: WBC 8.2 afebrile Meropenem (started 07/22) - per Dr. Armstrong continue for a total of 2 weeks - Discontinued 08/05/17 ID consult: Dr. Armstrong --> help appreciated Urinary retention 07/21: NS stopped because tube feeds restarted 07/20: Urine dark in color, monitor, continue NS at 50 ml per hour 07/07/17: Catheter flushed, patient output approx. 500mL within one hour post flush. 06/27/17: Continue bladder massages to aid in voiding. 06/25/17: Patient voids with movement. Continue bladder massages to aid in voiding. 06/23/17: Patient will need to have daily bladder massage to allow for complete voiding 06/17/17: Nursing communication placed in: straight catherization with bladder scan> 100ml 06/08: urinary retention yesterday, was given 40mg lasix iv and patient was able to urinate through condom baker Take note condom cath not always securely in place so Is and Os are approximate as patient does wet bed Ordered- new condom catheter on 05/22/17 Flomax 0.4mg PEG daily Proscar 5mg PEG daily continue Bethanecol 50mg PEG TID- started after persistent retention and found to be effective. monitor I's and O's - I/O: 780/350 Check bladder scan for residual urine three times weekly Hypokalemia, resolved K+ on 08/10: 4.2 Sacral ulcer Healed Cont with offloading/cushioning/turning Continue frequent turning, protective ointment and skin checks. History of coronary artery disease s/p cardiac stents on 06/13/15 Cont ASA 81mg via PEG daily Cont Coreg 3.125mg PEG BID Cont Plavix 75 mg PEG daily Seizures Continue Keppra 500mg PEG BID for seizure prophylaxis Monitor for activity Lower extremity edema Improved SCDs in place Pressure ulcer boots on /l Continue to monitor Prophylactic measure Pepcid 20 mg PEG BID Lovenox 40mg SC daily SCDs and offloading boots continue to turn and reposition q2hrs Continue to monitor medication administrations and clinical presentation weekly labs. vasoline ointment applied to feet prn to prevent hyperkeratosis Please hold feeding from 10pm-6am, placed into nursing communication Vitamin A & D for lips There is no update at this time. <Jeison Moore - Last Filed: 10/19/17 09:04> Objective - Vital Signs/Intake and Output Vital Signs (last 24 hours): Temp Pulse Resp BP Pulse Ox 98.1 F 88 20 112/72 98 10/19/17 08:17 10/19/17 08:17 10/19/17 08:17 10/19/17 08:17 10/19/17 08:17 Intake and Output: 10/19/17 10/19/17 06:59 18:59 Intake Total 380 Output Total 300 Balance 80 - Medications Medications: Current Medications Acetylcysteine (Acetylcysteine 20%) 4 ml INH RQ8 [facility] Last Admin: 10/19/17 07:49 Dose: 4 ml Albuterol/Ipratropium (Duoneb 3 Mg/0.5 Mg (3 Ml) Ud) 3 ml INH RQ6 [facility] Last Admin: 10/19/17 07:49 Dose: 3 ml Aspirin (Aspirin Chewable) 81 mg PEG DAILY [facility] Last Admin: 10/18/17 09:12 Dose: 81 mg Carvedilol (Coreg) 3.125 mg PEG BID [facility] Last Admin: 10/18/17 17:20 Dose: 3.125 mg Enoxaparin Sodium (Lovenox) 30 mg SC DAILY [facility] Last Admin: 10/18/17 09:15 Dose: 30 mg Famotidine (Pepcid) 20 mg PEG DAILY [facility] Last Admin: 10/18/17 09:13 Dose: 20 mg Finasteride (Proscar) 5 mg PEG DAILY [facility] Last Admin: 10/18/17 09:13 Dose: 5 mg Dextrose/Sodium Chloride (Dextrose 5%/0.45% Ns 1000 Ml) 1,000 mls @ 75 mls/hr IV .[id number] [facility] Last Admin: 09/28/17 15:12 Dose: 75 mls/hr Levetiracetam (Keppra) 500 mg PEG BID [facility] Last Admin: 10/18/17 17:20 Dose: 500 mg Saccharomyces Boulardii (Florastor) 250 mg PEG DAILY [facility] Last Admin: 10/18/17 09:12 Dose: 250 mg Scopolamine (Transderm-Scop) 1 patch TD Q3D [facility] Last Admin: 10/18/17 04:20 Dose: 1 patch Tamsulosin HCl (Flomax) 0.4 mg PEG DAILY [facility] Last Admin: 10/18/17 09:12 Dose: 0.4 mg - Labs Labs: 10/12/17 06:59 10/12/17 06:59 PT 10.6 SECONDS (9.7-12.2) 11/24/15 14:10 INR 1.0 11/24/15 14:10 APTT 25 SECONDS (21-34) 11/24/15 14:10 Attending/Attestation - Attestation I have personally seen and examined this patient.: Yes I have fully participated in the care of the patient.: Yes I have reviewed all pertinent clinical information, including history, physical exam and plan: Yes
[2017-10-03] MEDS: Enoxaparin 30 mg Syringe SC SCH (09:55)
[2017-10-03] MEDS: Saccharomyces Boulardi 250 mg Cap PEG SCH (09:55)
[2017-10-03] MEDS: levETIRAcetam 100 mg/ml (5ml) Oral Syringe PEG SCH ×2 (09:55→17:31)
--- NOTE | 2017-10-04 00:07 | CP.PCM.PN ---
<Ben Martell R - Last Filed: 10/04/17 00:06> Subjective - Date & Time of Evaluation Date of Evaluation: 10/04/17 Time of Evaluation: 00:06 - Subjective Subjective: PGY-[address] Moore. Patient was seen and examined at bedside. ROS unattainable due to anoxic brain injury. Midline was removed 09/29/17, dressing is clean/dry/intact. Objective - Vital Signs/Intake and Output Vital Signs (last 24 hours): Temp Pulse Resp BP Pulse Ox 98.6 F 76 20 136/87 99 10/03/17 15:15 10/03/17 15:15 10/03/17 15:15 10/03/17 15:15 10/03/17 15:15 Intake and Output: 10/03/17 10/04/17 18:59 06:59 Intake Total 780 Output Total 400 Balance 380 - Medications Medications: Current Medications Acetylcysteine (Acetylcysteine 20%) 4 ml INH RQ8 [facility] Last Admin: 10/03/17 15:47 Dose: 4 ml Albuterol/Ipratropium (Duoneb 3 Mg/0.5 Mg (3 Ml) Ud) 3 ml INH RQ8 [facility] Last Admin: 10/03/17 15:47 Dose: 3 ml Aspirin (Aspirin Chewable) 81 mg PEG DAILY [facility] Last Admin: 10/03/17 09:56 Dose: 81 mg Carvedilol (Coreg) 3.125 mg PEG BID [facility] Last Admin: 10/03/17 17:31 Dose: 3.125 mg Enoxaparin Sodium (Lovenox) 30 mg SC DAILY [facility] Last Admin: 10/03/17 09:55 Dose: 30 mg Famotidine (Pepcid) 20 mg PEG DAILY [facility] Last Admin: 10/03/17 09:55 Dose: 20 mg Finasteride (Proscar) 5 mg PEG DAILY [facility] Last Admin: 10/03/17 09:55 Dose: 5 mg Dextrose/Sodium Chloride (Dextrose 5%/0.45% Ns 1000 Ml) 1,000 mls @ 75 mls/hr IV .[id number] [facility] Last Admin: 09/28/17 15:12 Dose: 75 mls/hr Levetiracetam (Keppra) 500 mg PEG BID [facility] Last Admin: 10/03/17 17:31 Dose: 500 mg Saccharomyces Boulardii (Florastor) 250 mg PEG DAILY [facility] Last Admin: 10/03/17 09:55 Dose: 250 mg Scopolamine (Transderm-Scop) 1 patch TD Q3D [facility] Last Admin: 10/03/17 17:32 Dose: 1 patch Tamsulosin HCl (Flomax) 0.4 mg PEG DAILY [facility] Last Admin: 10/03/17 09:56 Dose: 0.4 mg - Labs Labs: 09/28/17 08:43 09/28/17 08:43 PT 10.6 SECONDS (9.7-12.2) 11/24/15 14:10 INR 1.0 11/24/15 14:10 APTT 25 SECONDS (21-34) 11/24/15 14:10 - Additional Findings Additional findings: - Constitutional Appears: Chronically Ill - Additional Findings Additional findings: - Head Exam Head Exam: ATRAUMATIC, NORMAL INSPECTION - Eye Exam Eye Exam: absent: EOMI - ENT Exam ENT Exam: Mucous Membranes Moist - Neck Exam Neck Exam: Normal Inspection - Respiratory Exam Respiratory Exam: NORMAL BREATHING PATTERN. absent: rales, wheezes Additional comments: trach collar in place - Cardiovascular Exam Cardiovascular Exam: REGULAR RHYTHM. absent: Bradycardia, Tachycardia - GI/Abdominal Exam GI & Abdominal Exam: Soft - Exam Additional comments: baker condom in place - Extremities Exam Extremities Exam: Normal Inspection - Neurological Exam Neurological Exam: Altered - Skin Skin Exam: Dry, Intact, Normal Color, Warm Assessment and Plan - Assessment and Plan (Free Text) Assessment: Anoxic encephalopathy s/p cardiac arrest in 05/2015 no acute changes Pt has non spontaneous movements. Continue tube feeds- goal of 60ml/hr, feedings held at night due to fluid overload Respiratory failure Trach in place, continue daily monitoring for secretions. No change in management at this time. Continue with aggressive suctioning multiple times a day per respiratory therapist. Monitor for signs of respiratory distress Thick secretions Duoneb 3ml INH Q6 and Mucomyst 4ml INH Q6H Scopolamine 1 patch TD Q3D [facility] Repeat CXR on 05/28/17: linear increased consolidative changes in the right mid- lung zone and left lung base which may represent atelectasis and/or infiltrate. Questionable trace left pleural effusion. moderate venous congestion. cardiomegaly. degenerative changes in the spine and shoulders 09/09: Secretions suctioned at bedside Leukocytosis secondary to UTI. Resolved 08/10: WBC 8.2 afebrile Meropenem (started 07/22) - per Dr. Armstrong continue for a total of 2 weeks - Discontinued 08/05/17 ID consult: Dr. Armstrong --> help appreciated Urinary retention 07/21: NS stopped because tube feeds restarted 07/20: Urine dark in color, monitor, continue NS at 50 ml per hour 07/07/17: Catheter flushed, patient output approx. 500mL within one hour post flush. 06/27/17: Continue bladder massages to aid in voiding. 06/25/17: Patient voids with movement. Continue bladder massages to aid in voiding. 06/23/17: Patient will need to have daily bladder massage to allow for complete voiding 06/17/17: Nursing communication placed in: straight catherization with bladder scan> 100ml 06/08: urinary retention yesterday, was given 40mg lasix iv and patient was able to urinate through condom baker Take note condom cath not always securely in place so Is and Os are approximate as patient does wet bed Ordered- new condom catheter on 05/22/17 Flomax 0.4mg PEG daily Proscar 5mg PEG daily continue Bethanecol 50mg PEG TID- started after persistent retention and found to be effective. monitor I's and O's - I/O: 780/350 Check bladder scan for residual urine three times weekly Hypokalemia, resolved K+ on 08/10: 4.2 Sacral ulcer Healed Cont with offloading/cushioning/turning Continue frequent turning, protective ointment and skin checks. History of coronary artery disease s/p cardiac stents on 06/13/15 Cont ASA 81mg via PEG daily Cont Coreg 3.125mg PEG BID Cont Plavix 75 mg PEG daily Seizures Continue Keppra 500mg PEG BID for seizure prophylaxis Monitor for activity Lower extremity edema Improved SCDs in place Pressure ulcer boots on b/l Continue to monitor Prophylactic measure Pepcid 20 mg PEG BID Lovenox 40mg SC daily SCDs and offloading boots continue to turn and reposition q2hrs Continue to monitor medication administrations and clinical presentation weekly labs. vasoline ointment applied to feet prn to prevent hyperkeratosis Please hold feeding from 10pm-6am, placed into nursing communication Vitamin A & D for lips There is no update at this time. <Jeison Moore - Last Filed: 10/22/17 07:56> Objective - Vital Signs/Intake and Output Vital Signs (last 24 hours): Temp Pulse Resp BP Pulse Ox 98.6 F 95 H 22 127/78 98 10/21/17 23:47 10/21/17 23:47 10/21/17 23:47 10/21/17 23:47 10/21/17 23:47 Intake and Output: 10/22/17 10/22/17 06:59 18:59 Intake Total 1540 Output Total 800 Balance 740 - Medications Medications: Current Medications Acetylcysteine (Acetylcysteine 20%) 4 ml INH RQ8 [facility] Last Admin: 10/22/17 07:41 Dose: Not Given Albuterol/Ipratropium (Duoneb 3 Mg/0.5 Mg (3 Ml) Ud) 3 ml INH RQ6 [facility] Last Admin: 10/22/17 07:42 Dose: 3 ml Aspirin (Aspirin Chewable) 81 mg PEG DAILY [facility] Last Admin: 10/21/17 11:00 Dose: 81 mg Carvedilol (Coreg) 3.125 mg PEG BID [facility] Last Admin: 10/21/17 17:42 Dose: 3.125 mg Enoxaparin Sodium (Lovenox) 30 mg SC DAILY [facility] Last Admin: 10/21/17 11:00 Dose: 30 mg Famotidine (Pepcid) 20 mg PEG DAILY [facility] Last Admin: 10/21/17 11:00 Dose: 20 mg Finasteride (Proscar) 5 mg PEG DAILY [facility] Last Admin: 10/21/17 10:59 Dose: 5 mg Dextrose/Sodium Chloride (Dextrose 5%/0.45% Ns 1000 Ml) 1,000 mls @ 75 mls/hr IV .[id number] [facility] Last Admin: 09/28/17 15:12 Dose: 75 mls/hr Levetiracetam (Keppra) 500 mg PEG BID [facility] Last Admin: 10/21/17 17:42 Dose: 500 mg Saccharomyces Boulardii (Florastor) 250 mg PEG DAILY [facility] Last Admin: 10/21/17 10:59 Dose: 250 mg Scopolamine (Transderm-Scop) 1 patch TD Q3D [facility] Last Admin: 10/21/17 04:58 Dose: 1 patch Tamsulosin HCl (Flomax) 0.4 mg PEG DAILY [facility] Last Admin: 10/21/17 10:59 Dose: 0.4 mg - Labs Labs: 10/19/17 08:50 10/19/17 08:50 PT 10.6 SECONDS (9.7-12.2) 11/24/15 14:10 INR 1.0 11/24/15 14:10 APTT 25 SECONDS (21-34) 11/24/15 14:10 Attending/Attestation - Attestation I have personally seen and examined this patient.: Yes I have fully participated in the care of the patient.: Yes I have reviewed all pertinent clinical information, including history, physical exam and plan: Yes
[2017-10-04] MEDS: Acetylcysteine 20% Inhal Soln (4ml) INH SCH ×3 (00:46→15:47)
[2017-10-04] MEDS: Albuterol-Ipratrop 3 mg / 0.5 (3 ml) UD INH SCH ×3 (00:46→15:47)
[2017-10-04] MEDS: Saccharomyces Boulardi 250 mg Cap PEG SCH (09:51)
[2017-10-04] MEDS: Enoxaparin 30 mg Syringe SC SCH (09:51)
[2017-10-04] MEDS: levETIRAcetam 100 mg/ml (5ml) Oral Syringe PEG SCH ×2 (09:51→17:50)
[2017-10-05] MEDS: Albuterol-Ipratrop 3 mg / 0.5 (3 ml) UD INH SCH ×3 (00:40→16:07)
[2017-10-05] MEDS: Acetylcysteine 20% Inhal Soln (4ml) INH SCH ×3 (00:40→16:07)
--- NOTE | 2017-10-05 06:59 | CP.PCM.PN ---
Subjective - Date & Time of Evaluation Date of Evaluation: 10/05/17 Time of Evaluation: 06:59 - Subjective Subjective: PGY-[address] Moore. Patient was seen and examined at bedside. ROS unattainable due to anoxic brain injury. Objective - Vital Signs/Intake and Output Vital Signs (last 24 hours): Temp Pulse Resp BP Pulse Ox 98.1 F 96 H 22 123/78 99 10/04/17 23:39 10/04/17 23:39 10/04/17 23:39 10/04/17 23:39 10/04/17 23:39 Intake and Output: 10/04/17 10/05/17 18:59 06:59 Intake Total 1560 1560 Output Total 1100 900 Balance 460 660 - Medications Medications: Current Medications Acetylcysteine (Acetylcysteine 20%) 4 ml INH RQ8 [facility] Last Admin: 10/05/17 00:40 Dose: 4 ml Albuterol/Ipratropium (Duoneb 3 Mg/0.5 Mg (3 Ml) Ud) 3 ml INH RQ8 [facility] Last Admin: 10/05/17 00:40 Dose: 3 ml Aspirin (Aspirin Chewable) 81 mg PEG DAILY [facility] Last Admin: 10/04/17 09:50 Dose: 81 mg Carvedilol (Coreg) 3.125 mg PEG BID [facility] Last Admin: 10/04/17 17:15 Dose: 3.125 mg Enoxaparin Sodium (Lovenox) 30 mg SC DAILY [facility] Last Admin: 10/04/17 09:51 Dose: 30 mg Famotidine (Pepcid) 20 mg PEG DAILY [facility] Last Admin: 10/04/17 09:51 Dose: 20 mg Finasteride (Proscar) 5 mg PEG DAILY [facility] Last Admin: 10/04/17 09:50 Dose: 5 mg Dextrose/Sodium Chloride (Dextrose 5%/0.45% Ns 1000 Ml) 1,000 mls @ 75 mls/hr IV .[id number] [facility] Last Admin: 09/28/17 15:12 Dose: 75 mls/hr Levetiracetam (Keppra) 500 mg PEG BID [facility] Last Admin: 10/04/17 17:50 Dose: 500 mg Saccharomyces Boulardii (Florastor) 250 mg PEG DAILY [facility] Last Admin: 10/04/17 09:51 Dose: 250 mg Scopolamine (Transderm-Scop) 1 patch TD Q3D [facility] Last Admin: 10/03/17 17:32 Dose: 1 patch Tamsulosin HCl (Flomax) 0.4 mg PEG DAILY [facility] Last Admin: 10/04/17 09:50 Dose: 0.4 mg - Labs Labs: 09/28/17 08:43 09/28/17 08:43 PT 10.6 SECONDS (9.7-12.2) 11/24/15 14:10 INR 1.0 11/24/15 14:10 APTT 25 SECONDS (21-34) 11/24/15 14:10 - Additional Findings Additional findings: - Constitutional Appears: Chronically Ill - Additional Findings Additional findings: - Head Exam Head Exam: ATRAUMATIC, NORMAL INSPECTION - Eye Exam Eye Exam: absent: EOMI - ENT Exam ENT Exam: Mucous Membranes Moist - Neck Exam Neck Exam: Normal Inspection - Respiratory Exam Respiratory Exam: NORMAL BREATHING PATTERN. absent: rales, wheezes Additional comments: trach collar in place - Cardiovascular Exam Cardiovascular Exam: REGULAR RHYTHM. absent: Bradycardia, Tachycardia - GI/Abdominal Exam GI & Abdominal Exam: Soft - Exam Additional comments: baker condom in place - Extremities Exam Extremities Exam: Normal Inspection - Neurological Exam Neurological Exam: Altered - Skin Skin Exam: Dry, Intact, Normal Color, Warm Assessment and Plan - Assessment and Plan (Free Text) Assessment: Anoxic encephalopathy s/p cardiac arrest in 05/2015 no acute changes Pt has non spontaneous movements. Continue tube feeds- goal of 60ml/hr, feedings held at night due to fluid overload Respiratory failure Trach in place, continue daily monitoring for secretions. No change in management at this time. Continue with aggressive suctioning multiple times a day per respiratory therapist. Monitor for signs of respiratory distress Thick secretions Duoneb 3ml INH Q6 and Mucomyst 4ml INH Q6H Scopolamine 1 patch TD Q3D [facility] Repeat CXR on 05/28/17: linear increased consolidative changes in the right mid- lung zone and left lung base which may represent atelectasis and/or infiltrate. Questionable trace left pleural effusion. moderate venous congestion. cardiomegaly. degenerative changes in the spine and shoulders 09/09: Secretions suctioned at bedside Leukocytosis secondary to UTI. Resolved 08/10: WBC 8.2 afebrile Meropenem (started 07/22) - per Dr. Armstrong continue for a total of 2 weeks - Discontinued 08/05/17 ID consult: Dr. Armstrong --> help appreciated Urinary retention 07/21: NS stopped because tube feeds restarted 07/20: Urine dark in color, monitor, continue NS at 50 ml per hour 07/07/17: Catheter flushed, patient output approx. 500mL within one hour post flush. 06/27/17: Continue bladder massages to aid in voiding. 06/25/17: Patient voids with movement. Continue bladder massages to aid in voiding. 06/23/17: Patient will need to have daily bladder massage to allow for complete voiding 06/17/17: Nursing communication placed in: straight catherization with bladder scan> 100ml 06/08: urinary retention yesterday, was given 40mg lasix iv and patient was able to urinate through condom baker Take note condom cath not always securely in place so Is and Os are approximate as patient does wet bed Ordered- new condom catheter on 05/22/17 Flomax 0.4mg PEG daily Proscar 5mg PEG daily continue Bethanecol 50mg PEG TID- started after persistent retention and found to be effective. monitor I's and O's - I/O: 780/350 Check bladder scan for residual urine three times weekly Hypokalemia, resolved K+ on 08/10: 4.2 Sacral ulcer Healed Cont with offloading/cushioning/turning Continue frequent turning, protective ointment and skin checks. History of coronary artery disease s/p cardiac stents on 06/13/15 Cont ASA 81mg via PEG daily Cont Coreg 3.125mg PEG BID Cont Plavix 75 mg PEG daily Seizures Continue Keppra 500mg PEG BID for seizure prophylaxis Monitor for activity Lower extremity edema Improved SCDs in place Pressure ulcer boots on b/l Continue to monitor Prophylactic measure Pepcid 20 mg PEG BID Lovenox 40mg SC daily SCDs and offloading boots continue to turn and reposition q2hrs Continue to monitor medication administrations and clinical presentation weekly labs. vasoline ointment applied to feet prn to prevent hyperkeratosis Please hold feeding from 10pm-6am, placed into nursing communication Vitamin A & D for lips There is no update at this time.
[2017-10-05 08:10] LABS: BASO % 0.4 % (0.0-2.0); EOS # 0.6 K/uL (0.0-0.7); EOS % 5.1 % (0.0-4.0); HEMOGLOBIN 10.7 g/dL (12.0-18.0); LYMPH # 2.7 K/uL (1.0-4.3); LYMPH % 24.4 % (20.0-40.0); MEAN CELL VOLUME 89.4 fL (80.0-94.0); MEAN CORPUSCULAR HEMOGLOBIN 28.9 pg (27.0-31.0); MEAN CORPUSCULAR HGB CONC 32.3 g/dL (33.0-37.0); MEAN PLATELET VOLUME 8.9 fL (7.2-11.7); MONO # 1.1 K/uL (0.0-0.8); MONO % 10.2 % (0.0-10.0); NEUT # 6.7 K/uL (1.8-7.0); NEUT % 59.9 % (50.0-75.0); NRBC % 0.1 % (0.0-2.0); RBC 3.72 Mil/uL (4.40-5.90); RED CELL DISTRIBUTION WIDTH 16.1 % (11.5-14.5); WHITE BLOOD COUNT 11.1 K/uL (4.8-10.8)
[2017-10-05 08:29] LABS: ALBUMIN 3.9 g/dL (3.5-5.0)
[2017-10-05 08:32] LABS: ALB/GLOB RATIO 0.8 (1.0-2.1); AST/SGOT 45 U/L (17-59); BLOOD UREA NITROGEN 18 mg/dL (9-20); GFR NON-AFRICAN AMERICAN > 60
[2017-10-05 08:33] LABS: ALT/SGPT 47 U/L (21-72); CALCIUM 8.3 mg/dl (8.6-10.4)
[2017-10-05] MEDS: Saccharomyces Boulardi 250 mg Cap PEG SCH (09:33)
[2017-10-05] MEDS: levETIRAcetam 100 mg/ml (5ml) Oral Syringe PEG SCH ×2 (09:33→17:19)
[2017-10-06] MEDS: Albuterol-Ipratrop 3 mg / 0.5 (3 ml) UD INH SCH ×3 (00:02→16:00)
[2017-10-06] MEDS: Acetylcysteine 20% Inhal Soln (4ml) INH SCH ×3 (00:02→16:00)
--- NOTE | 2017-10-06 07:18 | CP.PCM.PN ---
Subjective - Date & Time of Evaluation Date of Evaluation: 10/06/17 Time of Evaluation: 07:17 - Subjective Subjective: PGY-[address] Moore. Patient was seen and examined at bedside. ROS unattainable due to anoxic brain injury. Objective - Vital Signs/Intake and Output Vital Signs (last 24 hours): Temp Pulse Resp BP Pulse Ox 98.8 F 95 H 20 126/78 98 10/05/17 23:35 10/05/17 23:35 10/05/17 23:35 10/05/17 23:35 10/05/17 23:35 Intake and Output: 10/06/17 10/06/17 06:59 18:59 Intake Total 780 Output Total 400 Balance 380 - Medications Medications: Current Medications Acetylcysteine (Acetylcysteine 20%) 4 ml INH RQ8 [facility] Last Admin: 10/06/17 00:02 Dose: Not Given Albuterol/Ipratropium (Duoneb 3 Mg/0.5 Mg (3 Ml) Ud) 3 ml INH RQ8 [facility] Last Admin: 10/06/17 00:02 Dose: 3 ml Aspirin (Aspirin Chewable) 81 mg PEG DAILY [facility] Last Admin: 10/05/17 09:33 Dose: 81 mg Carvedilol (Coreg) 3.125 mg PEG BID [facility] Last Admin: 10/05/17 17:19 Dose: 3.125 mg Famotidine (Pepcid) 20 mg PEG DAILY [facility] Last Admin: 10/05/17 09:33 Dose: 20 mg Finasteride (Proscar) 5 mg PEG DAILY [facility] Last Admin: 10/05/17 09:33 Dose: 5 mg Dextrose/Sodium Chloride (Dextrose 5%/0.45% Ns 1000 Ml) 1,000 mls @ 75 mls/hr IV .[id number] [facility] Last Admin: 09/28/17 15:12 Dose: 75 mls/hr Levetiracetam (Keppra) 500 mg PEG BID [facility] Last Admin: 10/05/17 17:19 Dose: 500 mg Saccharomyces Boulardii (Florastor) 250 mg PEG DAILY [facility] Last Admin: 10/05/17 09:33 Dose: 250 mg Scopolamine (Transderm-Scop) 1 patch TD Q3D [facility] Last Admin: 10/03/17 17:32 Dose: 1 patch Tamsulosin HCl (Flomax) 0.4 mg PEG DAILY [facility] Last Admin: 10/05/17 09:33 Dose: 0.4 mg - Labs Labs: 10/05/17 07:50 10/05/17 07:50 PT 10.6 SECONDS (9.7-12.2) 11/24/15 14:10 INR 1.0 11/24/15 14:10 APTT 25 SECONDS (21-34) 11/24/15 14:10 - Additional Findings Additional findings: - Constitutional Appears: Chronically Ill - Additional Findings Additional findings: - Head Exam Head Exam: ATRAUMATIC, NORMAL INSPECTION - Eye Exam Eye Exam: absent: EOMI - ENT Exam ENT Exam: Mucous Membranes Moist - Neck Exam Neck Exam: Normal Inspection - Respiratory Exam Respiratory Exam: NORMAL BREATHING PATTERN. absent: rales, wheezes Additional comments: trach collar in place - Cardiovascular Exam Cardiovascular Exam: REGULAR RHYTHM. absent: Bradycardia, Tachycardia - GI/Abdominal Exam GI & Abdominal Exam: Soft - Exam Additional comments: baker condom in place - Extremities Exam Extremities Exam: Normal Inspection - Neurological Exam Neurological Exam: Altered - Skin Skin Exam: Dry, Intact, Normal Color, Warm Assessment and Plan - Assessment and Plan (Free Text) Assessment: Anoxic encephalopathy s/p cardiac arrest in 05/2015 no acute changes Pt has non spontaneous movements. Continue tube feeds- goal of 60ml/hr, feedings held at night due to fluid overload Respiratory failure Trach in place, continue daily monitoring for secretions. No change in management at this time. Continue with aggressive suctioning multiple times a day per respiratory therapist. Monitor for signs of respiratory distress Thick secretions Duoneb 3ml INH Q6 and Mucomyst 4ml INH Q6H Scopolamine 1 patch TD Q3D [facility] Repeat CXR on 05/28/17: linear increased consolidative changes in the right mid- lung zone and left lung base which may represent atelectasis and/or infiltrate. Questionable trace left pleural effusion. moderate venous congestion. cardiomegaly. degenerative changes in the spine and shoulders 09/09: Secretions suctioned at bedside Leukocytosis secondary to UTI. Resolved 08/10: WBC 8.2 afebrile Meropenem (started 07/22) - per Dr. Armstrong continue for a total of 2 weeks - Discontinued 08/05/17 ID consult: Dr. Armstrong --> help appreciated Urinary retention 07/21: NS stopped because tube feeds restarted 07/20: Urine dark in color, monitor, continue NS at 50 ml per hour 07/07/17: Catheter flushed, patient output approx. 500mL within one hour post flush. 06/27/17: Continue bladder massages to aid in voiding. 06/25/17: Patient voids with movement. Continue bladder massages to aid in voiding. 06/23/17: Patient will need to have daily bladder massage to allow for complete voiding 06/17/17: Nursing communication placed in: straight catherization with bladder scan> 100ml 06/08: urinary retention yesterday, was given 40mg lasix iv and patient was able to urinate through condom baker Take note condom cath not always securely in place so Is and Os are approximate as patient does wet bed Ordered- new condom catheter on 05/22/17 Flomax 0.4mg PEG daily Proscar 5mg PEG daily continue Bethanecol 50mg PEG TID- started after persistent retention and found to be effective. monitor I's and O's - I/O: 780/350 Check bladder scan for residual urine three times weekly Hypokalemia, resolved K+ on 08/10: 4.2 Sacral ulcer Healed Cont with offloading/cushioning/turning Continue frequent turning, protective ointment and skin checks. History of coronary artery disease s/p cardiac stents on 06/13/15 Cont ASA 81mg via PEG daily Cont Coreg 3.125mg PEG BID Cont Plavix 75 mg PEG daily Seizures Continue Keppra 500mg PEG BID for seizure prophylaxis Monitor for activity Lower extremity edema Improved SCDs in place Pressure ulcer boots on b/l Continue to monitor Prophylactic measure Pepcid 20 mg PEG BID Lovenox 40mg SC daily SCDs and offloading boots continue to turn and reposition q2hrs Continue to monitor medication administrations and clinical presentation weekly labs. vasoline ointment applied to feet prn to prevent hyperkeratosis Please hold feeding from 10pm-6am, placed into nursing communication Vitamin A & D for lips There is no update at this time.
[2017-10-06] MEDS: levETIRAcetam 100 mg/ml (5ml) Oral Syringe PEG SCH ×2 (10:21→18:24)
[2017-10-06] MEDS: Saccharomyces Boulardi 250 mg Cap PEG SCH (10:21)
--- NOTE | 2017-10-07 07:08 | CP.PCM.PN ---
Subjective - Date & Time of Evaluation Date of Evaluation: 10/07/17 Time of Evaluation: 07:06 - Subjective Subjective: PGY-[address] Moore. Patient was seen and examined at bedside. ROS unattainable due to anoxic brain injury. Objective - Vital Signs/Intake and Output Vital Signs (last 24 hours): Temp Pulse Resp BP Pulse Ox 98.4 F 85 20 105/70 98 10/07/17 00:00 10/07/17 00:00 10/07/17 00:00 10/07/17 00:00 10/07/17 00:00 Intake and Output: 10/07/17 10/07/17 06:59 18:59 Intake Total 1160 Output Total 600 Balance 560 - Medications Medications: Current Medications Acetylcysteine (Acetylcysteine 20%) 4 ml INH RQ8 [facility] Last Admin: 10/07/17 00:00 Dose: Not Given Albuterol/Ipratropium (Duoneb 3 Mg/0.5 Mg (3 Ml) Ud) 3 ml INH RQ8 [facility] Last Admin: 10/07/17 00:00 Dose: 3 ml Aspirin (Aspirin Chewable) 81 mg PEG DAILY [facility] Last Admin: 10/06/17 10:20 Dose: 81 mg Carvedilol (Coreg) 3.125 mg PEG BID [facility] Last Admin: 10/06/17 18:24 Dose: 3.125 mg Famotidine (Pepcid) 20 mg PEG DAILY [facility] Last Admin: 10/06/17 10:21 Dose: 20 mg Finasteride (Proscar) 5 mg PEG DAILY [facility] Last Admin: 10/06/17 10:22 Dose: 5 mg Dextrose/Sodium Chloride (Dextrose 5%/0.45% Ns 1000 Ml) 1,000 mls @ 75 mls/hr IV .[id number] [facility] Last Admin: 09/28/17 15:12 Dose: 75 mls/hr Levetiracetam (Keppra) 500 mg PEG BID [facility] Last Admin: 10/06/17 18:24 Dose: 500 mg Saccharomyces Boulardii (Florastor) 250 mg PEG DAILY [facility] Last Admin: 10/06/17 10:21 Dose: 250 mg Scopolamine (Transderm-Scop) 1 patch TD Q3D [facility] Last Admin: 10/06/17 18:25 Dose: 1 patch Tamsulosin HCl (Flomax) 0.4 mg PEG DAILY [facility] Last Admin: 10/06/17 10:21 Dose: 0.4 mg - Labs Labs: 10/05/17 07:50 10/05/17 07:50 PT 10.6 SECONDS (9.7-12.2) 11/24/15 14:10 INR 1.0 11/24/15 14:10 APTT 25 SECONDS (21-34) 11/24/15 14:10 - Additional Findings Additional findings: - Constitutional Appears: Chronically Ill - Additional Findings Additional findings: - Head Exam Head Exam: ATRAUMATIC, NORMAL INSPECTION - Eye Exam Eye Exam: absent: EOMI - ENT Exam ENT Exam: Mucous Membranes Moist - Neck Exam Neck Exam: Normal Inspection - Respiratory Exam Respiratory Exam: NORMAL BREATHING PATTERN. absent: rales, wheezes Additional comments: trach collar in place - Cardiovascular Exam Cardiovascular Exam: REGULAR RHYTHM. absent: Bradycardia, Tachycardia - GI/Abdominal Exam GI & Abdominal Exam: Soft - Exam Additional comments: baker condom in place - Extremities Exam Extremities Exam: Normal Inspection - Neurological Exam Neurological Exam: Altered - Skin Skin Exam: Dry, Intact, Normal Color, Warm Assessment and Plan - Assessment and Plan (Free Text) Assessment: Anoxic encephalopathy s/p cardiac arrest in 05/2015 no acute changes Pt has non spontaneous movements. Continue tube feeds- goal of 60ml/hr, feedings held at night due to fluid overload Respiratory failure Trach in place, continue daily monitoring for secretions. No change in management at this time. Continue with aggressive suctioning multiple times a day per respiratory therapist. Monitor for signs of respiratory distress Thick secretions Duoneb 3ml INH Q6 and Mucomyst 4ml INH Q6H Scopolamine 1 patch TD Q3D [facility] Repeat CXR on 05/28/17: linear increased consolidative changes in the right mid- lung zone and left lung base which may represent atelectasis and/or infiltrate. Questionable trace left pleural effusion. moderate venous congestion. cardiomegaly. degenerative changes in the spine and shoulders 09/09: Secretions suctioned at bedside Leukocytosis secondary to UTI. Resolved 08/10: WBC 8.2 afebrile Meropenem (started 07/22) - per Dr. Armstrong continue for a total of 2 weeks - Discontinued 08/05/17 ID consult: Dr. Armstrong --> help appreciated Urinary retention 07/21: NS stopped because tube feeds restarted 07/20: Urine dark in color, monitor, continue NS at 50 ml per hour 07/07/17: Catheter flushed, patient output approx. 500mL within one hour post flush. 06/27/17: Continue bladder massages to aid in voiding. 06/25/17: Patient voids with movement. Continue bladder massages to aid in voiding. 06/23/17: Patient will need to have daily bladder massage to allow for complete voiding 06/17/17: Nursing communication placed in: straight catherization with bladder scan> 100ml 06/08: urinary retention yesterday, was given 40mg lasix iv and patient was able to urinate through condom baker Take note condom cath not always securely in place so Is and Os are approximate as patient does wet bed Ordered- new condom catheter on 05/22/17 Flomax 0.4mg PEG daily Proscar 5mg PEG daily continue Bethanecol 50mg PEG TID- started after persistent retention and found to be effective. monitor I's and O's - I/O: 780/350 Check bladder scan for residual urine three times weekly Hypokalemia, resolved K+ on 08/10: 4.2 Sacral ulcer, resolved Healed Cont with offloading/cushioning/turning Continue frequent turning, protective ointment and skin checks. History of coronary artery disease s/p cardiac stents on 06/13/15 Cont ASA 81mg via PEG daily Cont Coreg 3.125mg PEG BID Cont Plavix 75 mg PEG daily Seizures Continue Keppra 500mg PEG BID for seizure prophylaxis Monitor for activity Lower extremity edema Improved SCDs in place Pressure ulcer boots on b/l Continue to monitor Prophylactic measure Pepcid 20 mg PEG BID Lovenox 40mg SC daily SCDs and offloading boots continue to turn and reposition q2hrs Continue to monitor medication administrations and clinical presentation weekly labs. vasoline ointment applied to feet prn to prevent hyperkeratosis Please hold feeding from 10pm-6am, placed into nursing communication Vitamin A & D for lips There is no update at this time.
[2017-10-07] MEDS: Albuterol-Ipratrop 3 mg / 0.5 (3 ml) UD INH SCH ×3 (07:28→15:39)
[2017-10-07] MEDS: Acetylcysteine 20% Inhal Soln (4ml) INH SCH ×3 (07:28→15:39)
[2017-10-07] MEDS: levETIRAcetam 100 mg/ml (5ml) Oral Syringe PEG SCH ×2 (09:43→18:05)
[2017-10-07] MEDS: Saccharomyces Boulardi 250 mg Cap PEG SCH (09:43)
[2017-10-07] MEDS: Enoxaparin 40 mg Syringe SC SCH (10:47)
[2017-10-08] MEDS: Acetylcysteine 20% Inhal Soln (4ml) INH SCH ×4 (00:43→23:49)
[2017-10-08] MEDS: Albuterol-Ipratrop 3 mg / 0.5 (3 ml) UD INH SCH ×4 (00:43→23:49)
--- NOTE | 2017-10-08 07:08 | CP.PCM.PN ---
Subjective - Date & Time of Evaluation Date of Evaluation: 10/08/17 Time of Evaluation: 07:07 - Subjective Subjective: PGY-[address] Moore. Patient was seen and examined at bedside. ROS unattainable due to anoxic brain injury. Objective - Vital Signs/Intake and Output Vital Signs (last 24 hours): Temp Pulse Resp BP Pulse Ox 98.2 F 75 20 115/78 98 10/07/17 23:29 10/07/17 23:29 10/07/17 23:29 10/07/17 23:29 10/07/17 23:29 Intake and Output: 10/08/17 10/08/17 06:59 18:59 Intake Total 1160 Output Total 700 Balance 460 - Medications Medications: Current Medications Acetylcysteine (Acetylcysteine 20%) 4 ml INH RQ8 [facility] Last Admin: 10/08/17 00:43 Dose: 4 ml Albuterol/Ipratropium (Duoneb 3 Mg/0.5 Mg (3 Ml) Ud) 3 ml INH RQ8 [facility] Last Admin: 10/08/17 00:43 Dose: 3 ml Aspirin (Aspirin Chewable) 81 mg PEG DAILY [facility] Last Admin: 10/07/17 09:42 Dose: 81 mg Carvedilol (Coreg) 3.125 mg PEG BID [facility] Last Admin: 10/07/17 18:05 Dose: 3.125 mg Enoxaparin Sodium (Lovenox) 40 mg SC DAILY [facility] Last Admin: 10/07/17 10:47 Dose: 40 mg Famotidine (Pepcid) 20 mg PEG DAILY [facility] Last Admin: 10/07/17 09:44 Dose: 20 mg Finasteride (Proscar) 5 mg PEG DAILY [facility] Last Admin: 10/07/17 09:44 Dose: 5 mg Dextrose/Sodium Chloride (Dextrose 5%/0.45% Ns 1000 Ml) 1,000 mls @ 75 mls/hr IV .[id number] [facility] Last Admin: 09/28/17 15:12 Dose: 75 mls/hr Levetiracetam (Keppra) 500 mg PEG BID [facility] Last Admin: 10/07/17 18:05 Dose: 500 mg Saccharomyces Boulardii (Florastor) 250 mg PEG DAILY [facility] Last Admin: 10/07/17 09:43 Dose: 250 mg Scopolamine (Transderm-Scop) 1 patch TD Q3D [facility] Last Admin: 10/06/17 18:25 Dose: 1 patch Tamsulosin HCl (Flomax) 0.4 mg PEG DAILY [facility] Last Admin: 10/07/17 09:46 Dose: 0.4 mg - Labs Labs: 10/05/17 07:50 10/05/17 07:50 PT 10.6 SECONDS (9.7-12.2) 11/24/15 14:10 INR 1.0 11/24/15 14:10 APTT 25 SECONDS (21-34) 11/24/15 14:10 - Additional Findings Additional findings: - Constitutional Appears: Chronically Ill - Additional Findings Additional findings: - Head Exam Head Exam: ATRAUMATIC, NORMAL INSPECTION - Eye Exam Eye Exam: absent: EOMI - ENT Exam ENT Exam: Mucous Membranes Moist - Neck Exam Neck Exam: Normal Inspection - Respiratory Exam Respiratory Exam: NORMAL BREATHING PATTERN. absent: rales, wheezes Additional comments: trach collar in place - Cardiovascular Exam Cardiovascular Exam: REGULAR RHYTHM. absent: Bradycardia, Tachycardia - GI/Abdominal Exam GI & Abdominal Exam: Soft - Exam Additional comments: baker condom in place - Extremities Exam Extremities Exam: Normal Inspection - Neurological Exam Neurological Exam: Altered - Skin Skin Exam: Dry, Intact, Normal Color, Warm Assessment and Plan - Assessment and Plan (Free Text) Assessment: Anoxic encephalopathy s/p cardiac arrest in 05/2015 no acute changes Pt has non spontaneous movements. Continue tube feeds- goal of 60ml/hr, feedings held at night due to fluid overload Respiratory failure Trach in place, continue daily monitoring for secretions. No change in management at this time. Continue with aggressive suctioning multiple times a day per respiratory therapist. Monitor for signs of respiratory distress Thick secretions Duoneb 3ml INH Q6 and Mucomyst 4ml INH Q6H Scopolamine 1 patch TD Q3D [facility] Repeat CXR on 05/28/17: linear increased consolidative changes in the right mid- lung zone and left lung base which may represent atelectasis and/or infiltrate. Questionable trace left pleural effusion. moderate venous congestion. cardiomegaly. degenerative changes in the spine and shoulders 09/09: Secretions suctioned at bedside Leukocytosis secondary to UTI. Resolved 08/10: WBC 8.2 afebrile Meropenem (started 07/22) - per Dr. Armstrong continue for a total of 2 weeks - Discontinued 08/05/17 ID consult: Dr. Armstrong --> help appreciated Urinary retention 07/21: NS stopped because tube feeds restarted 07/20: Urine dark in color, monitor, continue NS at 50 ml per hour 07/07/17: Catheter flushed, patient output approx. 500mL within one hour post flush. 06/27/17: Continue bladder massages to aid in voiding. 06/25/17: Patient voids with movement. Continue bladder massages to aid in voiding. 06/23/17: Patient will need to have daily bladder massage to allow for complete voiding 06/17/17: Nursing communication placed in: straight catherization with bladder scan> 100ml 06/08: urinary retention yesterday, was given 40mg lasix iv and patient was able to urinate through condom baker Take note condom cath not always securely in place so Is and Os are approximate as patient does wet bed Ordered- new condom catheter on 05/22/17 Flomax 0.4mg PEG daily Proscar 5mg PEG daily continue Bethanecol 50mg PEG TID- started after persistent retention and found to be effective. monitor I's and O's - I/O: 780/350 Check bladder scan for residual urine three times weekly Hypokalemia, resolved K+ on 08/10: 4.2 Sacral ulcer, resolved Healed Cont with offloading/cushioning/turning Continue frequent turning, protective ointment and skin checks. History of coronary artery disease s/p cardiac stents on 06/13/15 Cont ASA 81mg via PEG daily Cont Coreg 3.125mg PEG BID Cont Plavix 75 mg PEG daily Seizures Continue Keppra 500mg PEG BID for seizure prophylaxis Monitor for activity Lower extremity edema Improved SCDs in place Pressure ulcer boots on b/l Continue to monitor Prophylactic measure Pepcid 20 mg PEG BID Lovenox 40mg SC daily SCDs and offloading boots continue to turn and reposition q2hrs Continue to monitor medication administrations and clinical presentation weekly labs. vasoline ointment applied to feet prn to prevent hyperkeratosis Please hold feeding from 10pm-6am, placed into nursing communication Vitamin A & D for lips There is no update at this time.
[2017-10-08] MEDS: Enoxaparin 40 mg Syringe SC SCH (09:58)
[2017-10-08] MEDS: levETIRAcetam 100 mg/ml (5ml) Oral Syringe PEG SCH ×2 (09:58→17:38)
[2017-10-08] MEDS: Saccharomyces Boulardi 250 mg Cap PEG SCH (09:59)
--- NOTE | 2017-10-09 06:47 | CP.PCM.PN ---
Subjective - Date & Time of Evaluation Date of Evaluation: 10/09/17 Time of Evaluation: 06:46 - Subjective Subjective: PGY-[address] Moore. Patient was seen and examined at bedside. ROS unattainable due to anoxic brain injury. Objective - Vital Signs/Intake and Output Vital Signs (last 24 hours): Temp Pulse Resp BP Pulse Ox 98.1 F 77 20 122/76 98 10/08/17 23:39 10/08/17 23:39 10/08/17 23:39 10/08/17 23:39 10/08/17 23:39 Intake and Output: 10/08/17 10/09/17 18:59 06:59 Intake Total 480 1500 Output Total 400 250 Balance 80 1250 - Medications Medications: Current Medications Acetylcysteine (Acetylcysteine 20%) 4 ml INH RQ8 [facility] Last Admin: 10/08/17 23:49 Dose: 4 ml Albuterol/Ipratropium (Duoneb 3 Mg/0.5 Mg (3 Ml) Ud) 3 ml INH RQ8 [facility] Last Admin: 10/08/17 23:49 Dose: 3 ml Aspirin (Aspirin Chewable) 81 mg PEG DAILY [facility] Last Admin: 10/08/17 09:59 Dose: 81 mg Carvedilol (Coreg) 3.125 mg PEG BID [facility] Last Admin: 10/08/17 17:37 Dose: 3.125 mg Enoxaparin Sodium (Lovenox) 40 mg SC DAILY [facility] Last Admin: 10/08/17 09:58 Dose: 40 mg Famotidine (Pepcid) 20 mg PEG DAILY [facility] Last Admin: 10/08/17 09:59 Dose: 20 mg Finasteride (Proscar) 5 mg PEG DAILY [facility] Last Admin: 10/08/17 09:59 Dose: 5 mg Dextrose/Sodium Chloride (Dextrose 5%/0.45% Ns 1000 Ml) 1,000 mls @ 75 mls/hr IV .[id number] [facility] Last Admin: 09/28/17 15:12 Dose: 75 mls/hr Levetiracetam (Keppra) 500 mg PEG BID [facility] Last Admin: 10/08/17 17:38 Dose: 500 mg Saccharomyces Boulardii (Florastor) 250 mg PEG DAILY [facility] Last Admin: 10/08/17 09:59 Dose: 250 mg Scopolamine (Transderm-Scop) 1 patch TD Q3D [facility] Last Admin: 10/06/17 18:25 Dose: 1 patch Tamsulosin HCl (Flomax) 0.4 mg PEG DAILY [facility] Last Admin: 10/08/17 09:59 Dose: 0.4 mg - Labs Labs: 10/05/17 07:50 10/05/17 07:50 PT 10.6 SECONDS (9.7-12.2) 11/24/15 14:10 INR 1.0 11/24/15 14:10 APTT 25 SECONDS (21-34) 11/24/15 14:10 - Additional Findings Additional findings: - Constitutional Appears: Chronically Ill - Additional Findings Additional findings: - Head Exam Head Exam: ATRAUMATIC, NORMAL INSPECTION - Eye Exam Eye Exam: absent: EOMI - ENT Exam ENT Exam: Mucous Membranes Moist - Neck Exam Neck Exam: Normal Inspection - Respiratory Exam Respiratory Exam: NORMAL BREATHING PATTERN. absent: rales, wheezes Additional comments: trach collar in place - Cardiovascular Exam Cardiovascular Exam: REGULAR RHYTHM. absent: Bradycardia, Tachycardia - GI/Abdominal Exam GI & Abdominal Exam: Soft - Exam Additional comments: baker condom in place - Extremities Exam Extremities Exam: Normal Inspection - Neurological Exam Neurological Exam: Altered - Skin Skin Exam: Dry, Intact, Normal Color, Warm Assessment and Plan - Assessment and Plan (Free Text) Assessment: Anoxic encephalopathy s/p cardiac arrest in 05/2015 no acute changes Pt has non spontaneous movements. Continue tube feeds- goal of 60ml/hr, feedings held at night due to fluid overload Respiratory failure Trach in place, continue daily monitoring for secretions. No change in management at this time. Continue with aggressive suctioning multiple times a day per respiratory therapist. Monitor for signs of respiratory distress Thick secretions Duoneb 3ml INH Q6 and Mucomyst 4ml INH Q6H Scopolamine 1 patch TD Q3D [facility] Repeat CXR on 05/28/17: linear increased consolidative changes in the right mid- lung zone and left lung base which may represent atelectasis and/or infiltrate. Questionable trace left pleural effusion. moderate venous congestion. cardiomegaly. degenerative changes in the spine and shoulders 09/09: Secretions suctioned at bedside Leukocytosis secondary to UTI. Resolved 08/10: WBC 8.2 afebrile Meropenem (started 07/22) - per Dr. Armstrong continue for a total of 2 weeks - Discontinued 08/05/17 ID consult: Dr. Armstrong --> help appreciated Urinary retention 07/21: NS stopped because tube feeds restarted 07/20: Urine dark in color, monitor, continue NS at 50 ml per hour 07/07/17: Catheter flushed, patient output approx. 500mL within one hour post flush. 06/27/17: Continue bladder massages to aid in voiding. 06/25/17: Patient voids with movement. Continue bladder massages to aid in voiding. 06/23/17: Patient will need to have daily bladder massage to allow for complete voiding 06/17/17: Nursing communication placed in: straight catherization with bladder scan> 100ml 06/08: urinary retention yesterday, was given 40mg lasix iv and patient was able to urinate through condom baker Take note condom cath not always securely in place so Is and Os are approximate as patient does wet bed Ordered- new condom catheter on 05/22/17 Flomax 0.4mg PEG daily Proscar 5mg PEG daily continue Bethanecol 50mg PEG TID- started after persistent retention and found to be effective. monitor I's and O's - I/O: 780/350 Check bladder scan for residual urine three times weekly Hypokalemia, resolved K+ on 08/10: 4.2 Sacral ulcer, resolved Healed Cont with offloading/cushioning/turning Continue frequent turning, protective ointment and skin checks. History of coronary artery disease s/p cardiac stents on 06/13/15 Cont ASA 81mg via PEG daily Cont Coreg 3.125mg PEG BID Cont Plavix 75 mg PEG daily Seizures Continue Keppra 500mg PEG BID for seizure prophylaxis Monitor for activity Lower extremity edema Improved SCDs in place Pressure ulcer boots on b/l Continue to monitor Prophylactic measure Pepcid 20 mg PEG BID Lovenox 40mg SC daily SCDs and offloading boots continue to turn and reposition q2hrs Continue to monitor medication administrations and clinical presentation weekly labs. vasoline ointment applied to feet prn to prevent hyperkeratosis Please hold feeding from 10pm-6am, placed into nursing communication Vitamin A & D for lips There is no update at this time.
[2017-10-09] MEDS: Albuterol-Ipratrop 3 mg / 0.5 (3 ml) UD INH SCH ×2 (07:43→15:59)
[2017-10-09] MEDS: Acetylcysteine 20% Inhal Soln (4ml) INH SCH ×2 (07:43→15:59)
[2017-10-09] MEDS: Enoxaparin 40 mg Syringe SC SCH (10:53)
[2017-10-09] MEDS: Saccharomyces Boulardi 250 mg Cap PEG SCH (10:53)
[2017-10-09] MEDS: levETIRAcetam 100 mg/ml (5ml) Oral Syringe PEG SCH ×2 (10:54→17:44)
[2017-10-10] MEDS: Acetylcysteine 20% Inhal Soln (4ml) INH SCH ×4 (00:39→23:40)
[2017-10-10] MEDS: Albuterol-Ipratrop 3 mg / 0.5 (3 ml) UD INH SCH ×2 (00:39→08:01)
--- NOTE | 2017-10-10 06:07 | CP.PCM.PN ---
Subjective - Date & Time of Evaluation Date of Evaluation: 10/10/17 Time of Evaluation: 06:06 - Subjective Subjective: Patient was seen and examined at bedside. ROS unattainable due to anoxic brain injury. Objective - Vital Signs/Intake and Output Vital Signs (last 24 hours): Temp Pulse Resp BP Pulse Ox 98.5 F 72 20 102/76 98 10/09/17 23:33 10/09/17 23:33 10/09/17 23:33 10/09/17 23:33 10/09/17 23:33 Intake and Output: 10/09/17 10/10/17 18:59 06:59 Intake Total 520 620 Output Total 500 350 Balance 20 270 - Medications Medications: Current Medications Acetylcysteine (Acetylcysteine 20%) 4 ml INH RQ8 [facility] Last Admin: 10/10/17 00:39 Dose: 4 ml Albuterol/Ipratropium (Duoneb 3 Mg/0.5 Mg (3 Ml) Ud) 3 ml INH RQ8 [facility] Last Admin: 10/10/17 00:39 Dose: 3 ml Aspirin (Aspirin Chewable) 81 mg PEG DAILY [facility] Last Admin: 10/09/17 10:53 Dose: 81 mg Carvedilol (Coreg) 3.125 mg PEG BID [facility] Last Admin: 10/09/17 17:44 Dose: 3.125 mg Enoxaparin Sodium (Lovenox) 40 mg SC DAILY [facility] Last Admin: 10/09/17 10:53 Dose: 40 mg Famotidine (Pepcid) 20 mg PEG DAILY [facility] Last Admin: 10/09/17 10:53 Dose: 20 mg Finasteride (Proscar) 5 mg PEG DAILY [facility] Last Admin: 10/09/17 10:54 Dose: 5 mg Dextrose/Sodium Chloride (Dextrose 5%/0.45% Ns 1000 Ml) 1,000 mls @ 75 mls/hr IV .[id number] [facility] Last Admin: 09/28/17 15:12 Dose: 75 mls/hr Levetiracetam (Keppra) 500 mg PEG BID [facility] Last Admin: 10/09/17 17:44 Dose: 500 mg Saccharomyces Boulardii (Florastor) 250 mg PEG DAILY [facility] Last Admin: 10/09/17 10:53 Dose: 250 mg Scopolamine (Transderm-Scop) 1 patch TD Q3D [facility] Last Admin: 10/09/17 17:44 Dose: 1 patch Tamsulosin HCl (Flomax) 0.4 mg PEG DAILY [facility] Last Admin: 10/09/17 10:53 Dose: 0.4 mg - Labs Labs: 10/05/17 07:50 10/05/17 07:50 PT 10.6 SECONDS (9.7-12.2) 11/24/15 14:10 INR 1.0 11/24/15 14:10 APTT 25 SECONDS (21-34) 11/24/15 14:10 - Additional Findings Additional findings: - Constitutional Appears: Chronically Ill - Additional Findings Additional findings: - Head Exam Head Exam: ATRAUMATIC, NORMAL INSPECTION - Eye Exam Eye Exam: absent: EOMI - ENT Exam ENT Exam: Mucous Membranes Moist - Neck Exam Neck Exam: Normal Inspection - Respiratory Exam Respiratory Exam: NORMAL BREATHING PATTERN. absent: rales, wheezes Additional comments: trach collar in place - Cardiovascular Exam Cardiovascular Exam: REGULAR RHYTHM. absent: Bradycardia, Tachycardia - GI/Abdominal Exam GI & Abdominal Exam: Soft - Exam Additional comments: baker condom in place - Extremities Exam Extremities Exam: Normal Inspection - Neurological Exam Neurological Exam: Altered - Skin Skin Exam: Dry, Intact, Normal Color, Warm Assessment and Plan - Assessment and Plan (Free Text) Assessment: Anoxic encephalopathy s/p cardiac arrest in 05/2015 no acute changes Pt has non spontaneous movements. Continue tube feeds- goal of 60ml/hr, feedings held at night due to fluid overload Respiratory failure Trach in place, continue daily monitoring for secretions. No change in management at this time. Continue with aggressive suctioning multiple times a day per respiratory therapist. Monitor for signs of respiratory distress Thick secretions Duoneb 3ml INH Q6 and Mucomyst 4ml INH Q6H Scopolamine 1 patch TD Q3D [facility] Repeat CXR on 05/28/17: linear increased consolidative changes in the right mid- lung zone and left lung base which may represent atelectasis and/or infiltrate. Questionable trace left pleural effusion. moderate venous congestion. cardiomegaly. degenerative changes in the spine and shoulders 09/09: Secretions suctioned at bedside Leukocytosis secondary to UTI. Resolved 08/10: WBC 8.2 afebrile Meropenem (started 07/22) - per Dr. Armstrong continue for a total of 2 weeks - Discontinued 08/05/17 ID consult: Dr. Armstrong --> help appreciated Urinary retention 07/21: NS stopped because tube feeds restarted 07/20: Urine dark in color, monitor, continue NS at 50 ml per hour 07/07/17: Catheter flushed, patient output approx. 500mL within one hour post flush. 06/27/17: Continue bladder massages to aid in voiding. 06/25/17: Patient voids with movement. Continue bladder massages to aid in voiding. 06/23/17: Patient will need to have daily bladder massage to allow for complete voiding 06/17/17: Nursing communication placed in: straight catherization with bladder scan> 100ml 06/08: urinary retention yesterday, was given 40mg lasix iv and patient was able to urinate through condom baker Take note condom cath not always securely in place so Is and Os are approximate as patient does wet bed Ordered- new condom catheter on 05/22/17 Flomax 0.4mg PEG daily Proscar 5mg PEG daily continue Bethanecol 50mg PEG TID- started after persistent retention and found to be effective. monitor I's and O's - I/O: 780/350 Check bladder scan for residual urine three times weekly Hypokalemia, resolved K+ on 08/10: 4.2 Sacral ulcer, resolved Healed Cont with offloading/cushioning/turning Continue frequent turning, protective ointment and skin checks. History of coronary artery disease s/p cardiac stents on 06/13/15 Cont ASA 81mg via PEG daily Cont Coreg 3.125mg PEG BID Cont Plavix 75 mg PEG daily Seizures Continue Keppra 500mg PEG BID for seizure prophylaxis Monitor for activity Lower extremity edema Improved SCDs in place Pressure ulcer boots on b/l Continue to monitor Prophylactic measure Pepcid 20 mg PEG BID Lovenox 40mg SC daily SCDs and offloading boots continue to turn and reposition q2hrs Continue to monitor medication administrations and clinical presentation weekly labs. vasoline ointment applied to feet prn to prevent hyperkeratosis Please hold feeding from 10pm-6am, placed into nursing communication Vitamin A & D for lips There is no update at this time. Flor Jimenez- PGY1
[2017-10-10] MEDS: levETIRAcetam 100 mg/ml (5ml) Oral Syringe PEG SCH ×2 (09:16→17:49)
[2017-10-10] MEDS: Saccharomyces Boulardi 250 mg Cap PEG SCH (09:16)
[2017-10-10] MEDS: Enoxaparin 40 mg Syringe SC SCH (09:16)
--- NOTE | 2017-10-11 03:34 | CP.PCM.PN ---
<Flor Jimenez - Last Filed: 10/11/17 03:33> Subjective - Date & Time of Evaluation Date of Evaluation: 10/11/17 Time of Evaluation: 03:33 - Subjective Subjective: Patient was seen and examined at bedside. ROS unattainable due to anoxic brain injury. Objective - Vital Signs/Intake and Output Vital Signs (last 24 hours): Temp Pulse Resp BP Pulse Ox 97.9 F 69 20 119/76 98 10/11/17 00:07 10/11/17 00:07 10/11/17 00:07 10/11/17 00:07 10/11/17 00:07 Intake and Output: 10/10/17 10/11/17 18:59 06:59 Intake Total 620 720 Output Total 320 Balance 300 720 - Medications Medications: Current Medications Acetylcysteine (Acetylcysteine 20%) 4 ml INH RQ8 [facility] Last Admin: 10/10/17 23:40 Dose: Not Given Aspirin (Aspirin Chewable) 81 mg PEG DAILY [facility] Last Admin: 10/10/17 09:15 Dose: 81 mg Carvedilol (Coreg) 3.125 mg PEG BID [facility] Last Admin: 10/10/17 17:49 Dose: 3.125 mg Enoxaparin Sodium (Lovenox) 40 mg SC DAILY [facility] Last Admin: 10/10/17 09:16 Dose: 40 mg Famotidine (Pepcid) 20 mg PEG DAILY [facility] Last Admin: 10/10/17 09:17 Dose: 20 mg Finasteride (Proscar) 5 mg PEG DAILY [facility] Last Admin: 10/10/17 09:17 Dose: 5 mg Dextrose/Sodium Chloride (Dextrose 5%/0.45% Ns 1000 Ml) 1,000 mls @ 75 mls/hr IV .[id number] [facility] Last Admin: 09/28/17 15:12 Dose: 75 mls/hr Levetiracetam (Keppra) 500 mg PEG BID [facility] Last Admin: 10/10/17 17:49 Dose: 500 mg Saccharomyces Boulardii (Florastor) 250 mg PEG DAILY [facility] Last Admin: 10/10/17 09:16 Dose: 250 mg Scopolamine (Transderm-Scop) 1 patch TD Q3D [facility] Last Admin: 10/09/17 17:44 Dose: 1 patch Tamsulosin HCl (Flomax) 0.4 mg PEG DAILY [facility] Last Admin: 10/10/17 09:15 Dose: 0.4 mg - Labs Labs: 10/05/17 07:50 10/05/17 07:50 PT 10.6 SECONDS (9.7-12.2) 11/24/15 14:10 INR 1.0 11/24/15 14:10 APTT 25 SECONDS (21-34) 11/24/15 14:10 - Additional Findings Additional findings: - Constitutional Appears: Chronically Ill - Additional Findings Additional findings: - Head Exam Head Exam: ATRAUMATIC, NORMAL INSPECTION - Eye Exam Eye Exam: absent: EOMI - ENT Exam ENT Exam: Mucous Membranes Moist - Neck Exam Neck Exam: Normal Inspection - Respiratory Exam Respiratory Exam: NORMAL BREATHING PATTERN. absent: rales, wheezes Additional comments: trach collar in place - Cardiovascular Exam Cardiovascular Exam: REGULAR RHYTHM. absent: Bradycardia, Tachycardia - GI/Abdominal Exam GI & Abdominal Exam: Soft - Exam Additional comments: baker condom in place - Extremities Exam Extremities Exam: Normal Inspection - Neurological Exam Neurological Exam: Altered - Skin Skin Exam: Dry, Intact, Normal Color, Warm Assessment and Plan - Assessment and Plan (Free Text) Assessment: s/p cardiac arrest in 05/2015 no acute changes Pt has non spontaneous movements. Continue tube feeds- goal of 60ml/hr, feedings held at night due to fluid overload Respiratory failure Trach in place, continue daily monitoring for secretions. No change in management at this time. Continue with aggressive suctioning multiple times a day per respiratory therapist. Monitor for signs of respiratory distress Thick secretions Duoneb 3ml INH Q6 and Mucomyst 4ml INH Q6H Scopolamine 1 patch TD Q3D [facility] Repeat CXR on 05/28/17: linear increased consolidative changes in the right mid- lung zone and left lung base which may represent atelectasis and/or infiltrate. Questionable trace left pleural effusion. moderate venous congestion. cardiomegaly. degenerative changes in the spine and shoulders 09/09: Secretions suctioned at bedside Leukocytosis secondary to UTI. Resolved 08/10: WBC 8.2 afebrile Meropenem (started 07/22) - per Dr. Armstrong continue for a total of 2 weeks - Discontinued 08/05/17 ID consult: Dr. Armstrong --> help appreciated Urinary retention 07/21: NS stopped because tube feeds restarted 07/20: Urine dark in color, monitor, continue NS at 50 ml per hour 07/07/17: Catheter flushed, patient output approx. 500mL within one hour post flush. 06/27/17: Continue bladder massages to aid in voiding. 06/25/17: Patient voids with movement. Continue bladder massages to aid in voiding. 06/23/17: Patient will need to have daily bladder massage to allow for complete voiding 06/17/17: Nursing communication placed in: straight catherization with bladder scan> 100ml 06/08: urinary retention yesterday, was given 40mg lasix iv and patient was able to urinate through condom baker Take note condom cath not always securely in place so Is and Os are approximate as patient does wet bed Ordered- new condom catheter on 05/22/17 Flomax 0.4mg PEG daily Proscar 5mg PEG daily continue Bethanecol 50mg PEG TID- started after persistent retention and found to be effective. monitor I's and O's - I/O: 780/350 Check bladder scan for residual urine three times weekly Hypokalemia, resolved K+ on 08/10: 4.2 Sacral ulcer, resolved Healed Cont with offloading/cushioning/turning Continue frequent turning, protective ointment and skin checks. History of coronary artery disease s/p cardiac stents on 06/13/15 Cont ASA 81mg via PEG daily Cont Coreg 3.125mg PEG BID Cont Plavix 75 mg PEG daily Seizures Continue Keppra 500mg PEG BID for seizure prophylaxis Monitor for activity Lower extremity edema Improved SCDs in place Pressure ulcer boots on b/l Continue to monitor Prophylactic measure Pepcid 20 mg PEG BID Lovenox 40mg SC daily SCDs and offloading boots continue to turn and reposition q2hrs Continue to monitor medication administrations and clinical presentation weekly labs. vasoline ointment applied to feet prn to prevent hyperkeratosis Please hold feeding from 10pm-6am, placed into nursing communication Vitamin A & D for lips There is no update at this time. Flor Jimenez- PGY1 <Amandeep Chavis - Last Filed: 10/11/17 10:02> Objective - Vital Signs/Intake and Output Vital Signs (last 24 hours): Temp Pulse Resp BP Pulse Ox 97.9 F 69 20 119/76 98 10/11/17 00:07 10/11/17 00:07 10/11/17 00:07 10/11/17 00:07 10/11/17 00:07 Intake and Output: 10/11/17 10/11/17 06:59 18:59 Intake Total 1100 Output Total 200 Balance 900 - Medications Medications: Current Medications Acetylcysteine (Acetylcysteine 20%) 4 ml INH RQ8 [facility] Last Admin: 10/11/17 08:10 Dose: Not Given Aspirin (Aspirin Chewable) 81 mg PEG DAILY [facility] Last Admin: 10/11/17 09:40 Dose: 81 mg Carvedilol (Coreg) 3.125 mg PEG BID [facility] Last Admin: 10/11/17 09:40 Dose: 3.125 mg Enoxaparin Sodium (Lovenox) 40 mg SC DAILY [facility] Last Admin: 10/11/17 09:40 Dose: 40 mg Famotidine (Pepcid) 20 mg PEG DAILY [facility] Last Admin: 10/11/17 09:40 Dose: 20 mg Finasteride (Proscar) 5 mg PEG DAILY [facility] Last Admin: 10/11/17 09:41 Dose: 5 mg Dextrose/Sodium Chloride (Dextrose 5%/0.45% Ns 1000 Ml) 1,000 mls @ 75 mls/hr IV .[id number] [facility] Last Admin: 09/28/17 15:12 Dose: 75 mls/hr Levetiracetam (Keppra) 500 mg PEG BID [facility] Last Admin: 10/11/17 09:40 Dose: 500 mg Saccharomyces Boulardii (Florastor) 250 mg PEG DAILY [facility] Last Admin: 10/11/17 09:40 Dose: 250 mg Scopolamine (Transderm-Scop) 1 patch TD Q3D [facility] Last Admin: 10/09/17 17:44 Dose: 1 patch Tamsulosin HCl (Flomax) 0.4 mg PEG DAILY [facility] Last Admin: 10/11/17 09:40 Dose: 0.4 mg - Labs Labs: 10/05/17 07:50 10/05/17 07:50 PT 10.6 SECONDS (9.7-12.2) 11/24/15 14:10 INR 1.0 11/24/15 14:10 APTT 25 SECONDS (21-34) 11/24/15 14:10 Assessment and Plan (1) Prophylactic measure Status: Acute (2) Anoxic encephalopathy Status: Chronic (3) STEMI (ST elevation myocardial infarction) Status: Acute (4) Cardiac arrest Status: Acute (5) Seizures Status: Acute (6) Respiratory failure Status: Chronic Attending/Attestation - Attestation I have personally seen and examined this patient.: Yes I have fully participated in the care of the patient.: Yes I have reviewed all pertinent clinical information, including history, physical exam and plan: Yes Notes (Text): 10/11/17 10:02 Medical attending: Agree with the above Situation is not changed from before. Amandeep Chavis
[2017-10-11] MEDS: Acetylcysteine 20% Inhal Soln (4ml) INH SCH ×2 (08:10→20:23)
[2017-10-11] MEDS: Saccharomyces Boulardi 250 mg Cap PEG SCH (09:40)
[2017-10-11] MEDS: levETIRAcetam 100 mg/ml (5ml) Oral Syringe PEG SCH ×2 (09:40→18:24)
[2017-10-11] MEDS: Enoxaparin 40 mg Syringe SC SCH (09:40)
[2017-10-12] MEDS: Acetylcysteine 20% Inhal Soln (4ml) INH SCH ×2 (01:32→08:03)
[2017-10-12 07:24] LABS: BASO % 0.4 % (0.0-2.0); EOS # 0.6 K/uL (0.0-0.7); EOS % 5.8 % (0.0-4.0); HEMOGLOBIN 11.2 g/dL (12.0-18.0); LYMPH # 2.5 K/uL (1.0-4.3); LYMPH % 23.9 % (20.0-40.0); MEAN CELL VOLUME 89.2 fL (80.0-94.0); MEAN CORPUSCULAR HEMOGLOBIN 29.9 pg (27.0-31.0); MEAN CORPUSCULAR HGB CONC 33.5 g/dL (33.0-37.0); MEAN PLATELET VOLUME 8.9 fL (7.2-11.7); MONO # 0.9 K/uL (0.0-0.8); MONO % 8.4 % (0.0-10.0); NEUT # 6.5 K/uL (1.8-7.0); NEUT % 61.5 % (50.0-75.0); RBC 3.74 Mil/uL (4.40-5.90); WHITE BLOOD COUNT 10.5 K/uL (4.8-10.8)
[2017-10-12 07:51] LABS: ALB/GLOB RATIO 0.8 (1.0-2.1); ALBUMIN 3.6 g/dL (3.5-5.0); ALT/SGPT 77 U/L (21-72); AST/SGOT 33 U/L (17-59); BLOOD UREA NITROGEN 14 mg/dL (9-20); GFR NON-AFRICAN AMERICAN > 60
--- NOTE | 2017-10-12 08:47 | CP.PCM.PN ---
<Vesna Turpin - Last Filed: 10/12/17 11:36> Subjective - Date & Time of Evaluation Date of Evaluation: 10/12/17 Time of Evaluation: 08:46 - Subjective Subjective: Patient was seen and examined at bedside in no acute distress. Review of systems not obtained due to anoxic brain injury. Objective - Vital Signs/Intake and Output Vital Signs (last 24 hours): Temp Pulse Resp BP Pulse Ox 98.0 F 85 20 123/74 98 10/12/17 07:55 10/12/17 07:55 10/12/17 07:55 10/12/17 07:55 10/12/17 07:55 Intake and Output: 10/12/17 10/12/17 06:59 18:59 Intake Total 1240 Output Total 450 Balance 790 - Medications Medications: Current Medications Acetylcysteine (Acetylcysteine 20%) 4 ml INH RQ8 [facility] Last Admin: 10/12/17 08:03 Dose: Not Given Aspirin (Aspirin Chewable) 81 mg PEG DAILY [facility] Last Admin: 10/11/17 09:40 Dose: 81 mg Carvedilol (Coreg) 3.125 mg PEG BID [facility] Last Admin: 10/11/17 18:27 Dose: 3.125 mg Enoxaparin Sodium (Lovenox) 40 mg SC DAILY [facility] Last Admin: 10/11/17 09:40 Dose: 40 mg Famotidine (Pepcid) 20 mg PEG DAILY [facility] Last Admin: 10/11/17 09:40 Dose: 20 mg Finasteride (Proscar) 5 mg PEG DAILY [facility] Last Admin: 10/11/17 09:41 Dose: 5 mg Dextrose/Sodium Chloride (Dextrose 5%/0.45% Ns 1000 Ml) 1,000 mls @ 75 mls/hr IV .[id number] [facility] Last Admin: 09/28/17 15:12 Dose: 75 mls/hr Levetiracetam (Keppra) 500 mg PEG BID [facility] Last Admin: 10/11/17 18:24 Dose: 500 mg Saccharomyces Boulardii (Florastor) 250 mg PEG DAILY [facility] Last Admin: 10/11/17 09:40 Dose: 250 mg Scopolamine (Transderm-Scop) 1 patch TD Q3D [facility] Last Admin: 10/09/17 17:44 Dose: 1 patch Tamsulosin HCl (Flomax) 0.4 mg PEG DAILY [facility] Last Admin: 10/11/17 09:40 Dose: 0.4 mg - Labs Labs: 10/12/17 06:59 10/12/17 06:59 PT 10.6 SECONDS (9.7-12.2) 11/24/15 14:10 INR 1.0 11/24/15 14:10 APTT 25 SECONDS (21-34) 11/24/15 14:10 - Head Exam Head Exam: ATRAUMATIC, NORMAL INSPECTION - Eye Exam Eye Exam: absent: EOMI, Normal appearance - ENT Exam ENT Exam: Mucous Membranes Moist - Neck Exam Additional comments: Trach in place; copious secretions noted - Respiratory Exam Respiratory Exam: Rales, Rhonchi, Wheezes. absent: Clear to Ausculation Bilateral (congestion; copious secretions), Respiratory Distress - Cardiovascular Exam Cardiovascular Exam: REGULAR RHYTHM, +S1, +S2 - GI/Abdominal Exam GI & Abdominal Exam: Distended, Soft, Hypoactive Bowel Sounds. absent: Firm, Mass Additional comments: PEG in place; dressing clean, dry, intact - Extremities Exam Extremities Exam: absent: Pedal Edema - Neurological Exam Neurological Exam: Altered. absent: Alert, Awake, Oriented x3 - Psychiatric Exam Psychiatric exam: Flat Affect. absent: Normal Affect, Normal Mood - Skin Skin Exam: Dry, Intact, Normal Color, Warm Assessment and Plan (1) Anoxic encephalopathy Status: Chronic (2) Respiratory failure Status: Chronic (3) UTI (urinary tract infection) Status: Resolved (4) Urinary retention Status: Acute (5) Hypokalemia Status: Acute (6) Sacral ulcer Status: Resolved (7) History of coronary artery disease Status: Acute (8) Seizures Status: Acute (9) Lower extremity edema Status: Acute - Assessment and Plan (Free Text) Plan: (1) Anoxic encephalopathy s/p cardiac arrest in 05/2015 no acute changes Pt has non spontaneous movements. Continue tube feeds- goal of 60ml/hr, feedings held at night due to fluid overload (2) Respiratory failure Trach in place, continue daily monitoring for secretions. No change in management at this time. Continue with aggressive suctioning multiple times a day per respiratory therapist. Monitor for signs of respiratory distress Thick secretions Duoneb 3ml INH Q6 and Mucomyst 4ml INH Q8H Scopolamine 1 patch TD Q3D [facility] Repeat CXR on 05/28/17: linear increased consolidative changes in the right mid- lung zone and left lung base which may represent atelectasis and/or infiltrate. Questionable trace left pleural effusion. moderate venous congestion. cardiomegaly. degenerative changes in the spine and shoulders Repeat CXR 09/28/17: no active disease; no change from previous CXR. (3) UTI Leukocytosis secondary to UTI. Resolved 10/12: afebrile, WBC within normal range 08/10: WBC 8.2 afebrile Meropenem (started 07/22) - per Dr. Armstrong continue for a total of 2 weeks - Discontinued 08/05/17 ID consult: Dr. Armstrong --> help appreciated (4) Urinary retention 10/12: Condom baker in place; continue to monitor 07/21: NS stopped because tube feeds restarted 07/20: Urine dark in color, monitor, continue NS at 50 ml per hour 07/07/17: Catheter flushed, patient output approx. 500mL within one hour post flush. 06/27/17: Continue bladder massages to aid in voiding. 06/25/17: Patient voids with movement. Continue bladder massages to aid in voiding. 06/23/17: Patient will need to have daily bladder massage to allow for complete voiding 06/17/17: Nursing communication placed in: straight catherization with bladder scan> 100ml 06/08: urinary retention yesterday, was given 40mg lasix iv and patient was able to urinate through condom baker Take note condom cath not always securely in place so Is and Os are approximate as patient does wet bed Ordered- new condom catheter on 05/22/17 Flomax 0.4mg PEG daily Proscar 5mg PEG daily continue Bethanecol 50mg PEG TID- started after persistent retention and found to be effective. monitor I's and O's - I/O: 780/350 Check bladder scan for residual urine three times weekly (5) Hypokalemia 10/12: K+ was 3.3; replaced K+ on 08/10: 4.2 (6) Sacral ulcer, resolved Healed Cont with offloading/cushioning/turning Continue frequent turning, protective ointment and skin checks. (7) History of coronary artery disease s/p cardiac stents on 06/13/15 Cont ASA 81mg via PEG daily Cont Coreg 3.125mg PEG BID Cont Plavix 75 mg PEG daily (8) Seizures Continue Keppra 500mg PEG BID for seizure prophylaxis Monitor for activity (9) Lower extremity edema Improved SCDs in place Pressure ulcer boots on b/l Continue to monitor (10) Prophylactic measure Pepcid 20 mg PEG BID Lovenox 40mg SC daily SCDs and offloading boots continue to turn and reposition q2hrs Continue to monitor medication administrations and clinical presentation weekly labs. vasoline ointment applied to feet prn to prevent hyperkeratosis Please hold feeding from 10pm-6am, placed into nursing communication Vitamin A & D for lips There is no update at this time. <Jeison Moore - Last Filed: 10/22/17 09:00> Objective - Vital Signs/Intake and Output Vital Signs (last 24 hours): Temp Pulse Resp BP Pulse Ox 98.6 F 95 H 22 127/78 98 10/21/17 23:47 10/21/17 23:47 10/21/17 23:47 10/21/17 23:47 10/21/17 23:47 Intake and Output: 10/22/17 10/22/17 06:59 18:59 Intake Total 1540 Output Total 800 Balance 740 - Medications Medications: Current Medications Acetylcysteine (Acetylcysteine 20%) 4 ml INH RQ8 [facility] Last Admin: 10/22/17 07:41 Dose: Not Given Albuterol/Ipratropium (Duoneb 3 Mg/0.5 Mg (3 Ml) Ud) 3 ml INH RQ6 [facility] Last Admin: 10/22/17 07:42 Dose: 3 ml Aspirin (Aspirin Chewable) 81 mg PEG DAILY [facility] Last Admin: 10/21/17 11:00 Dose: 81 mg Carvedilol (Coreg) 3.125 mg PEG BID [facility] Last Admin: 10/21/17 17:42 Dose: 3.125 mg Enoxaparin Sodium (Lovenox) 30 mg SC DAILY [facility] Last Admin: 10/21/17 11:00 Dose: 30 mg Famotidine (Pepcid) 20 mg PEG DAILY [facility] Last Admin: 10/21/17 11:00 Dose: 20 mg Finasteride (Proscar) 5 mg PEG DAILY [facility] Last Admin: 10/21/17 10:59 Dose: 5 mg Dextrose/Sodium Chloride (Dextrose 5%/0.45% Ns 1000 Ml) 1,000 mls @ 75 mls/hr IV .[id number] [facility] Last Admin: 09/28/17 15:12 Dose: 75 mls/hr Levetiracetam (Keppra) 500 mg PEG BID [facility] Last Admin: 10/21/17 17:42 Dose: 500 mg Saccharomyces Boulardii (Florastor) 250 mg PEG DAILY [facility] Last Admin: 10/21/17 10:59 Dose: 250 mg Scopolamine (Transderm-Scop) 1 patch TD Q3D [facility] Last Admin: 10/21/17 04:58 Dose: 1 patch Tamsulosin HCl (Flomax) 0.4 mg PEG DAILY [facility] Last Admin: 10/21/17 10:59 Dose: 0.4 mg - Labs Labs: 10/19/17 08:50 10/19/17 08:50 PT 10.6 SECONDS (9.7-12.2) 11/24/15 14:10 INR 1.0 11/24/15 14:10 APTT 25 SECONDS (21-34) 11/24/15 14:10 Attending/Attestation - Attestation I have personally seen and examined this patient.: Yes I have fully participated in the care of the patient.: Yes I have reviewed all pertinent clinical information, including history, physical exam and plan: Yes Notes (Text): Patient was seen and examined I agree with the assessment and the plan
[2017-10-12] MEDS: Enoxaparin 40 mg Syringe SC SCH (10:59)
[2017-10-12] MEDS: Saccharomyces Boulardi 250 mg Cap PEG SCH (11:00)
[2017-10-12] MEDS: levETIRAcetam 100 mg/ml (5ml) Oral Syringe PEG SCH ×2 (11:00→17:58)
[2017-10-13] MEDS: Acetylcysteine 20% Inhal Soln (4ml) INH SCH ×3 (01:14→20:25)
--- NOTE | 2017-10-13 09:07 | CP.PCM.PN ---
<Vesna Turpin - Last Filed: 10/13/17 15:36> Subjective - Date & Time of Evaluation Date of Evaluation: 10/13/17 Time of Evaluation: 09:05 - Subjective Subjective: Patient was seen and examined at bedside in no acute distress. Review of systems not obtained due to anoxic brain injury. Objective - Vital Signs/Intake and Output Vital Signs (last 24 hours): Temp Pulse Resp BP Pulse Ox 97.7 F 86 18 128/78 99 10/13/17 01:14 10/13/17 01:14 10/13/17 01:14 10/13/17 01:14 10/13/17 01:14 Intake and Output: 10/13/17 10/13/17 06:59 18:59 Intake Total 920 380 Output Total 202 500 Balance 718 -120 - Medications Medications: Current Medications Acetylcysteine (Acetylcysteine 20%) 4 ml INH RQ8 [facility] Last Admin: 10/13/17 07:34 Dose: Not Given Aspirin (Aspirin Chewable) 81 mg PEG DAILY [facility] Last Admin: 10/12/17 10:59 Dose: 81 mg Carvedilol (Coreg) 3.125 mg PEG BID [facility] Last Admin: 10/12/17 18:05 Dose: Not Given Enoxaparin Sodium (Lovenox) 40 mg SC DAILY [facility] Last Admin: 10/12/17 10:59 Dose: 40 mg Famotidine (Pepcid) 20 mg PEG DAILY [facility] Last Admin: 10/12/17 10:59 Dose: 20 mg Finasteride (Proscar) 5 mg PEG DAILY [facility] Last Admin: 10/12/17 11:00 Dose: 5 mg Dextrose/Sodium Chloride (Dextrose 5%/0.45% Ns 1000 Ml) 1,000 mls @ 75 mls/hr IV .[id number] [facility] Last Admin: 09/28/17 15:12 Dose: 75 mls/hr Levetiracetam (Keppra) 500 mg PEG BID [facility] Last Admin: 10/12/17 17:58 Dose: 500 mg Saccharomyces Boulardii (Florastor) 250 mg PEG DAILY [facility] Last Admin: 10/12/17 11:00 Dose: 250 mg Scopolamine (Transderm-Scop) 1 patch TD Q3D [facility] Last Admin: 10/12/17 18:06 Dose: 1 patch Tamsulosin HCl (Flomax) 0.4 mg PEG DAILY [facility] Last Admin: 10/12/17 10:59 Dose: 0.4 mg - Labs Labs: 10/12/17 06:59 10/12/17 06:59 PT 10.6 SECONDS (9.7-12.2) 11/24/15 14:10 INR 1.0 11/24/15 14:10 APTT 25 SECONDS (21-34) 11/24/15 14:10 - Additional Findings Additional findings: - Head Exam Head Exam: ATRAUMATIC, NORMAL INSPECTION - Eye Exam Eye Exam: absent: EOMI, Normal appearance - ENT Exam ENT Exam: Mucous Membranes Moist - Neck Exam Additional comments: Trach in place; copious secretions noted - Respiratory Exam Respiratory Exam: Rales, Rhonchi, Wheezes. absent: Clear to Ausculation Bilateral (congestion; copious secretions), Respiratory Distress - Cardiovascular Exam Cardiovascular Exam: REGULAR RHYTHM, +S1, +S2 - GI/Abdominal Exam GI & Abdominal Exam: Distended, Soft, Hypoactive Bowel Sounds. absent: Firm, Mass Additional comments: PEG in place; dressing clean, dry, intact - Extremities Exam Extremities Exam: absent: Pedal Edema - Neurological Exam Neurological Exam: Altered. absent: Alert, Awake, Oriented x3 - Psychiatric Exam Psychiatric exam: Flat Affect. absent: Normal Affect, Normal Mood - Skin Skin Exam: Dry, Intact, Normal Color, Warm Assessment and Plan (1) Anoxic encephalopathy Status: Chronic (2) Respiratory failure Status: Chronic (3) UTI (urinary tract infection) Status: Resolved (4) Urinary retention Status: Acute (5) Hypokalemia Status: Acute (6) Sacral ulcer Status: Resolved (7) History of coronary artery disease Status: Acute (8) Seizures Status: Acute (9) Lower extremity edema Status: Acute - Assessment and Plan (Free Text) Plan: (1) Anoxic encephalopathy s/p cardiac arrest in 05/2015 no acute changes Pt has non spontaneous movements. Continue tube feeds- goal of 60ml/hr, feedings held at night due to fluid overload (2) Respiratory failure Trach in place, continue daily monitoring for secretions. No change in management at this time. Continue with aggressive suctioning multiple times a day per respiratory therapist. Monitor for signs of respiratory distress Thick secretions Duoneb 3ml INH Q6 and Mucomyst 4ml INH Q8H Scopolamine 1 patch TD Q3D [facility] Repeat CXR on 05/28/17: linear increased consolidative changes in the right mid- lung zone and left lung base which may represent atelectasis and/or infiltrate. Questionable trace left pleural effusion. moderate venous congestion. cardiomegaly. degenerative changes in the spine and shoulders Repeat CXR 09/28/17: no active disease; no change from previous CXR. (3) UTI Leukocytosis secondary to UTI. Resolved 10/12: afebrile, WBC within normal range 08/10: WBC 8.2 afebrile Meropenem (started 07/22) - per Dr. Armstrong continue for a total of 2 weeks - Discontinued 08/05/17 ID consult: Dr. Armstrong --> help appreciated (4) Urinary retention 10/12: Condom baker in place; continue to monitor 07/21: NS stopped because tube feeds restarted 07/20: Urine dark in color, monitor, continue NS at 50 ml per hour 07/07/17: Catheter flushed, patient output approx. 500mL within one hour post flush. 06/27/17: Continue bladder massages to aid in voiding. 06/25/17: Patient voids with movement. Continue bladder massages to aid in voiding. 06/23/17: Patient will need to have daily bladder massage to allow for complete voiding 06/17/17: Nursing communication placed in: straight catherization with bladder scan> 100ml 06/08: urinary retention yesterday, was given 40mg lasix iv and patient was able to urinate through condom baker Take note condom cath not always securely in place so Is and Os are approximate as patient does wet bed Ordered- new condom catheter on 05/22/17 Flomax 0.4mg PEG daily Proscar 5mg PEG daily continue Bethanecol 50mg PEG TID- started after persistent retention and found to be effective. monitor I's and O's - I/O: 780/350 Check bladder scan for residual urine three times weekly (5) Hypokalemia 10/12: K+ was 3.3; replaced K+ on 08/10: 4.2 (6) Sacral ulcer, resolved Healed Cont with offloading/cushioning/turning Continue frequent turning, protective ointment and skin checks. (7) History of coronary artery disease s/p cardiac stents on 06/13/15 Cont ASA 81mg via PEG daily Cont Coreg 3.125mg PEG BID Cont Plavix 75 mg PEG daily (8) Seizures Continue Keppra 500mg PEG BID for seizure prophylaxis Monitor for activity (9) Lower extremity edema Improved SCDs in place Pressure ulcer boots on b/l Continue to monitor (10) Prophylactic measure Pepcid 20 mg PEG BID Lovenox 40mg SC daily SCDs and offloading boots continue to turn and reposition q2hrs Continue to monitor medication administrations and clinical presentation weekly labs. vasoline ointment applied to feet prn to prevent hyperkeratosis Please hold feeding from 10pm-6am, placed into nursing communication Vitamin A & D for lips There is no update at this time. <Jeison Moore - Last Filed: 10/24/17 18:29> Objective - Vital Signs/Intake and Output Vital Signs (last 24 hours): Temp Pulse Resp BP Pulse Ox 98.6 F 96 H 20 129/76 98 10/24/17 00:20 10/24/17 00:20 10/24/17 00:20 10/24/17 00:20 10/24/17 00:20 Intake and Output: 10/24/17 10/24/17 06:59 18:59 Intake Total 1540 620 Output Total 600 300 Balance 940 320 - Medications Medications: Current Medications Acetylcysteine (Acetylcysteine 20%) 4 ml INH RQ8 [facility] Last Admin: 10/24/17 08:00 Dose: 4 ml Albuterol/Ipratropium (Duoneb 3 Mg/0.5 Mg (3 Ml) Ud) 3 ml INH RQ6 [facility] Last Admin: 10/24/17 13:15 Dose: 3 ml Aspirin (Aspirin Chewable) 81 mg PEG DAILY [facility] Last Admin: 10/24/17 10:50 Dose: 81 mg Carvedilol (Coreg) 3.125 mg PEG BID [facility] Last Admin: 10/24/17 17:51 Dose: 3.125 mg Enoxaparin Sodium (Lovenox) 30 mg SC DAILY [facility] Last Admin: 10/24/17 10:50 Dose: 30 mg Famotidine (Pepcid) 20 mg PEG DAILY [facility] Last Admin: 10/24/17 10:50 Dose: 20 mg Finasteride (Proscar) 5 mg PEG DAILY [facility] Last Admin: 12/02/17 10:50 Dose: 5 mg Dextrose/Sodium Chloride (Dextrose 5%/0.45% Ns 1000 Ml) 1,000 mls @ 75 mls/hr IV .[id number] [facility] Last Admin: 09/28/17 15:12 Dose: 75 mls/hr Levetiracetam (Keppra) 500 mg PEG BID [facility] Last Admin: 10/24/17 17:51 Dose: 500 mg Saccharomyces Boulardii (Florastor) 250 mg PEG DAILY [facility] Last Admin: 10/24/17 10:50 Dose: 250 mg Scopolamine (Transderm-Scop) 1 patch TD Q3D [facility] Last Admin: 10/21/17 04:58 Dose: 1 patch Tamsulosin HCl (Flomax) 0.4 mg PEG DAILY [facility] Last Admin: 10/24/17 10:50 Dose: 0.4 mg - Labs Labs: 10/19/17 08:50 10/19/17 08:50 PT 10.6 SECONDS (9.7-12.2) 11/24/15 14:10 INR 1.0 11/24/15 14:10 APTT 25 SECONDS (21-34) 11/24/15 14:10 Attending/Attestation - Attestation I have personally seen and examined this patient.: Yes I have fully participated in the care of the patient.: Yes I have reviewed all pertinent clinical information, including history, physical exam and plan: Yes
[2017-10-13] MEDS: levETIRAcetam 100 mg/ml (5ml) Oral Syringe PEG SCH ×2 (09:37→18:00)
[2017-10-13] MEDS: Enoxaparin 40 mg Syringe SC SCH (09:38)
[2017-10-13] MEDS: Saccharomyces Boulardi 250 mg Cap PEG SCH (09:38)
[2017-10-13] MEDS: Albuterol-Ipratrop 3 mg / 0.5 (3 ml) UD INH SCH (20:25)
[2017-10-14] MEDS: Albuterol-Ipratrop 3 mg / 0.5 (3 ml) UD INH SCH ×4 (01:58→19:55)
[2017-10-14] MEDS: Acetylcysteine 20% Inhal Soln (4ml) INH SCH ×3 (01:58→19:55)
--- NOTE | 2017-10-14 10:43 | CP.PCM.PN ---
<Vesna Turpin - Last Filed: 10/14/17 10:38> Subjective - Date & Time of Evaluation Date of Evaluation: 10/14/17 Time of Evaluation: 10:39 - Subjective Subjective: Patient was seen and examined at bedside in no acute distress. Review of systems not obtained due to anoxic brain injury. Objective - Vital Signs/Intake and Output Vital Signs (last 24 hours): Temp Pulse Resp BP Pulse Ox 98.5 F 85 20 116/79 95 10/14/17 08:00 10/14/17 08:00 10/14/17 08:00 10/14/17 08:00 10/14/17 08:00 Intake and Output: 10/14/17 10/14/17 06:59 18:59 Intake Total 380 Output Total 350 Balance 30 - Medications Medications: Current Medications Acetylcysteine (Acetylcysteine 20%) 4 ml INH RQ8 [facility] Last Admin: 10/14/17 07:20 Dose: 4 ml Albuterol/Ipratropium (Duoneb 3 Mg/0.5 Mg (3 Ml) Ud) 3 ml INH RQ6 [facility] Last Admin: 10/14/17 07:20 Dose: 3 ml Aspirin (Aspirin Chewable) 81 mg PEG DAILY [facility] Last Admin: 10/13/17 09:38 Dose: 81 mg Carvedilol (Coreg) 3.125 mg PEG BID [facility] Last Admin: 10/13/17 18:09 Dose: 3.125 mg Enoxaparin Sodium (Lovenox) 40 mg SC DAILY [facility] Last Admin: 10/13/17 09:38 Dose: 40 mg Famotidine (Pepcid) 20 mg PEG DAILY [facility] Last Admin: 10/13/17 09:38 Dose: 20 mg Finasteride (Proscar) 5 mg PEG DAILY [facility] Last Admin: 10/13/17 09:38 Dose: 5 mg Dextrose/Sodium Chloride (Dextrose 5%/0.45% Ns 1000 Ml) 1,000 mls @ 75 mls/hr IV .[id number] [facility] Last Admin: 09/28/17 15:12 Dose: 75 mls/hr Levetiracetam (Keppra) 500 mg PEG BID [facility] Last Admin: 10/13/17 18:00 Dose: 500 mg Saccharomyces Boulardii (Florastor) 250 mg PEG DAILY [facility] Last Admin: 10/13/17 09:38 Dose: 250 mg Tamsulosin HCl (Flomax) 0.4 mg PEG DAILY [facility] Last Admin: 10/13/17 09:38 Dose: 0.4 mg - Labs Labs: 10/12/17 06:59 10/12/17 06:59 PT 10.6 SECONDS (9.7-12.2) 11/24/15 14:10 INR 1.0 11/24/15 14:10 APTT 25 SECONDS (21-34) 11/24/15 14:10 - Additional Findings Additional findings: - Head Exam Head Exam: ATRAUMATIC, NORMAL INSPECTION - Eye Exam Eye Exam: absent: EOMI, Normal appearance - ENT Exam ENT Exam: Mucous Membranes Moist - Neck Exam Additional comments: Trach in place - Respiratory Exam Respiratory Exam: Rales, Rhonchi, Wheezes. absent: Clear to Ausculation Bilateral (congestion-improving), Respiratory Distress - Cardiovascular Exam Cardiovascular Exam: REGULAR RHYTHM, +S1, +S2 - GI/Abdominal Exam GI & Abdominal Exam: Distended, Soft, Hypoactive Bowel Sounds. absent: Firm, Mass Additional comments: PEG in place-tube feed leaking noted - Extremities Exam Extremities Exam: absent: Pedal Edema - Neurological Exam Neurological Exam: Altered. absent: Alert, Awake, Oriented x3 - Psychiatric Exam Psychiatric exam: Flat Affect. absent: Normal Affect, Normal Mood - Skin Skin Exam: Dry, Intact, Normal Color, Warm Assessment and Plan (1) Anoxic encephalopathy Status: Chronic (2) Respiratory failure Status: Chronic (3) UTI (urinary tract infection) Status: Resolved (4) Urinary retention Status: Acute (5) Hypokalemia Status: Acute (6) Sacral ulcer Status: Resolved (7) History of coronary artery disease Status: Acute (8) Seizures Status: Acute (9) Lower extremity edema Status: Acute - Assessment and Plan (Free Text) Plan: (1) Anoxic encephalopathy s/p cardiac arrest in 05/2015 no acute changes Pt has non spontaneous movements. Continue tube feeds- goal of 60ml/hr, feedings held at night due to fluid overload (2) Respiratory failure Trach in place, continue daily monitoring for secretions. No change in management at this time. Continue with aggressive suctioning multiple times a day per respiratory therapist. Monitor for signs of respiratory distress Thick secretions Duoneb 3ml INH Q6 and Mucomyst 4ml INH Q8H Scopolamine 1 patch TD Q3D [facility] Repeat CXR on 05/28/17: linear increased consolidative changes in the right mid- lung zone and left lung base which may represent atelectasis and/or infiltrate. Questionable trace left pleural effusion. moderate venous congestion. cardiomegaly. degenerative changes in the spine and shoulders Repeat CXR 09/28/17: no active disease; no change from previous CXR. (3) UTI Leukocytosis secondary to UTI. Resolved 10/12: afebrile, WBC within normal range 08/10: WBC 8.2 afebrile Meropenem (started 07/22) - per Dr. Armstrong continue for a total of 2 weeks - Discontinued 08/05/17 ID consult: Dr. Armstrong --> help appreciated (4) Urinary retention 10/12: Condom baker in place; continue to monitor 07/21: NS stopped because tube feeds restarted 07/20: Urine dark in color, monitor, continue NS at 50 ml per hour 07/07/17: Catheter flushed, patient output approx. 500mL within one hour post flush. 06/27/17: Continue bladder massages to aid in voiding. 06/25/17: Patient voids with movement. Continue bladder massages to aid in voiding. 06/23/17: Patient will need to have daily bladder massage to allow for complete voiding 06/17/17: Nursing communication placed in: straight catherization with bladder scan> 100ml 06/08: urinary retention yesterday, was given 40mg lasix iv and patient was able to urinate through condom baker Take note condom cath not always securely in place so Is and Os are approximate as patient does wet bed Ordered- new condom catheter on 05/22/17 Flomax 0.4mg PEG daily Proscar 5mg PEG daily continue Bethanecol 50mg PEG TID- started after persistent retention and found to be effective. monitor I's and O's - I/O: 780/350 Check bladder scan for residual urine three times weekly (5) Hypokalemia 10/12: K+ was 3.3; replaced K+ on 08/10: 4.2 (6) Sacral ulcer, resolved Healed Cont with offloading/cushioning/turning Continue frequent turning, protective ointment and skin checks. (7) History of coronary artery disease s/p cardiac stents on 06/13/15 Cont ASA 81mg via PEG daily Cont Coreg 3.125mg PEG BID Cont Plavix 75 mg PEG daily (8) Seizures Continue Keppra 500mg PEG BID for seizure prophylaxis Monitor for activity (9) Lower extremity edema Improved SCDs in place Pressure ulcer boots on b/l Continue to monitor (10) Prophylactic measure Pepcid 20 mg PEG BID Lovenox 40mg SC daily SCDs and offloading boots continue to turn and reposition q2hrs Continue to monitor medication administrations and clinical presentation weekly labs. vasoline ointment applied to feet prn to prevent hyperkeratosis Please hold feeding from 10pm-6am, placed into nursing communication Vitamin A & D for lips There is no update at this time. <Jeison Moore - Last Filed: 10/24/17 18:48> Objective - Vital Signs/Intake and Output Vital Signs (last 24 hours): Temp Pulse Resp BP Pulse Ox 98.6 F 96 H 20 129/76 98 10/24/17 00:20 10/24/17 00:20 10/24/17 00:20 10/24/17 00:20 10/24/17 00:20 Intake and Output: 10/24/17 10/24/17 06:59 18:59 Intake Total 1540 620 Output Total 600 300 Balance 940 320 - Medications Medications: Current Medications Acetylcysteine (Acetylcysteine 20%) 4 ml INH RQ8 [facility] Last Admin: 10/24/17 08:00 Dose: 4 ml Albuterol/Ipratropium (Duoneb 3 Mg/0.5 Mg (3 Ml) Ud) 3 ml INH RQ6 [facility] Last Admin: 10/24/17 13:15 Dose: 3 ml Aspirin (Aspirin Chewable) 81 mg PEG DAILY [facility] Last Admin: 10/24/17 10:50 Dose: 81 mg Carvedilol (Coreg) 3.125 mg PEG BID [facility] Last Admin: 10/24/17 17:51 Dose: 3.125 mg Enoxaparin Sodium (Lovenox) 30 mg SC DAILY [facility] Last Admin: 10/24/17 10:50 Dose: 30 mg Famotidine (Pepcid) 20 mg PEG DAILY [facility] Last Admin: 10/24/17 10:50 Dose: 20 mg Finasteride (Proscar) 5 mg PEG DAILY [facility] Last Admin: 10/24/17 10:50 Dose: 5 mg Dextrose/Sodium Chloride (Dextrose 5%/0.45% Ns 1000 Ml) 1,000 mls @ 75 mls/hr IV .[id number] [facility] Last Admin: 09/28/17 15:12 Dose: 75 mls/hr Levetiracetam (Keppra) 500 mg PEG BID [facility] Last Admin: 10/24/17 17:51 Dose: 500 mg Saccharomyces Boulardii (Florastor) 250 mg PEG DAILY [facility] Last Admin: 10/24/17 10:50 Dose: 250 mg Scopolamine (Transderm-Scop) 1 patch TD Q3D [facility] Last Admin: 10/21/17 04:58 Dose: 1 patch Tamsulosin HCl (Flomax) 0.4 mg PEG DAILY [facility] Last Admin: 10/24/17 10:50 Dose: 0.4 mg - Labs Labs: 10/19/17 08:50 10/19/17 08:50 PT 10.6 SECONDS (9.7-12.2) 11/24/15 14:10 INR 1.0 11/24/15 14:10 APTT 25 SECONDS (21-34) 11/24/15 14:10 Attending/Attestation - Attestation I have personally seen and examined this patient.: Yes I have fully participated in the care of the patient.: Yes I have reviewed all pertinent clinical information, including history, physical exam and plan: Yes
[2017-10-14] MEDS: levETIRAcetam 100 mg/ml (5ml) Oral Syringe PEG SCH (18:24)
--- NOTE | 2017-10-15 00:26 | CP.PCM.PN ---
<Tyra Yen - Last Filed: 10/15/17 06:34> Subjective - Date & Time of Evaluation Date of Evaluation: 10/15/17 Time of Evaluation: 07:00 - Subjective Subjective: PGY1 Medicine Note- Dr. Moore's service Patient was seen and examined at bedside in no acute distress. Review of systems not obtained due to anoxic brain injury. Objective - Vital Signs/Intake and Output Vital Signs (last 24 hours): Temp Pulse Resp BP Pulse Ox 97.9 F 18 L 88 H 100/66 96 10/14/17 15:05 10/14/17 15:05 10/14/17 15:05 10/14/17 15:05 10/14/17 15:05 Intake and Output: 10/14/17 10/15/17 18:59 06:59 Intake Total 620 Output Total 200 Balance 420 - Medications Medications: Current Medications Acetylcysteine (Acetylcysteine 20%) 4 ml INH RQ8 [facility] Last Admin: 10/14/17 19:55 Dose: 4 ml Albuterol/Ipratropium (Duoneb 3 Mg/0.5 Mg (3 Ml) Ud) 3 ml INH RQ6 [facility] Last Admin: 10/14/17 19:55 Dose: 3 ml Aspirin (Aspirin Chewable) 81 mg PEG DAILY [facility] Last Admin: 10/13/17 09:38 Dose: 81 mg Carvedilol (Coreg) 3.125 mg PEG BID [facility] Last Admin: 10/14/17 18:24 Dose: 3.125 mg Famotidine (Pepcid) 20 mg PEG DAILY [facility] Last Admin: 10/13/17 09:38 Dose: 20 mg Finasteride (Proscar) 5 mg PEG DAILY [facility] Last Admin: 10/13/17 09:38 Dose: 5 mg Dextrose/Sodium Chloride (Dextrose 5%/0.45% Ns 1000 Ml) 1,000 mls @ 75 mls/hr IV .[id number] [facility] Last Admin: 09/28/17 15:12 Dose: 75 mls/hr Levetiracetam (Keppra) 500 mg PEG BID [facility] Last Admin: 10/14/17 18:24 Dose: 500 mg Saccharomyces Boulardii (Florastor) 250 mg PEG DAILY [facility] Last Admin: 10/13/17 09:38 Dose: 250 mg Tamsulosin HCl (Flomax) 0.4 mg PEG DAILY [facility] Last Admin: 10/13/17 09:38 Dose: 0.4 mg - Labs Labs: 10/12/17 06:59 10/12/17 06:59 PT 10.6 SECONDS (9.7-12.2) 11/24/15 14:10 INR 1.0 11/24/15 14:10 APTT 25 SECONDS (21-34) 11/24/15 14:10 - Constitutional Appears: Non-toxic, No Acute Distress - Head Exam Head Exam: ATRAUMATIC, NORMAL INSPECTION, NORMOCEPHALIC - Eye Exam Eye Exam: EOMI, Normal appearance - ENT Exam ENT Exam: Mucous Membranes Moist - Respiratory Exam Respiratory Exam: Rales, Rhonchi - Cardiovascular Exam Cardiovascular Exam: REGULAR RHYTHM, +S1, +S2 - GI/Abdominal Exam GI & Abdominal Exam: Distended, Soft, Hypoactive Bowel Sounds Additional comments: PEG tube in place - Extremities Exam Extremities Exam: Normal Inspection Additional comments: in offloading boots - Neurological Exam Neurological Exam: absent: Alert, Awake - Psychiatric Exam Psychiatric exam: absent: Normal Affect, Normal Mood - Skin Skin Exam: Intact, Normal Color, Warm Assessment and Plan - Assessment and Plan (Free Text) Assessment: Plan: (1) Anoxic encephalopathy s/p cardiac arrest in 05/2015 no acute changes Pt has non spontaneous movements. Continue tube feeds- goal of 60ml/hr, feedings held at night due to fluid overload (2) Respiratory failure Trach in place, continue daily monitoring for secretions. No change in management at this time. Continue with aggressive suctioning multiple times a day per respiratory therapist. Monitor for signs of respiratory distress Thick secretions Duoneb 3ml INH Q6 and Mucomyst 4ml INH Q8H Scopolamine 1 patch TD Q3D [facility] Repeat CXR on 05/28/17: linear increased consolidative changes in the right mid- lung zone and left lung base which may represent atelectasis and/or infiltrate. Questionable trace left pleural effusion. moderate venous congestion. cardiomegaly. degenerative changes in the spine and shoulders Repeat CXR 09/28/17: no active disease; no change from previous CXR. (3) UTI Leukocytosis secondary to UTI. Resolved 10/12: afebrile, WBC within normal range 08/10: WBC 8.2 afebrile Meropenem (started 07/22) - per Dr. Armstrong continue for a total of 2 weeks - Discontinued 08/05/17 ID consult: Dr. Armstrong --> help appreciated (4) Urinary retention 10/12: Condom baker in place; continue to monitor 07/21: NS stopped because tube feeds restarted 07/20: Urine dark in color, monitor, continue NS at 50 ml per hour 07/07/17: Catheter flushed, patient output approx. 500mL within one hour post flush. 06/27/17: Continue bladder massages to aid in voiding. 06/25/17: Patient voids with movement. Continue bladder massages to aid in voiding. 06/23/17: Patient will need to have daily bladder massage to allow for complete voiding 06/17/17: Nursing communication placed in: straight catherization with bladder scan> 100ml 06/08: urinary retention yesterday, was given 40mg lasix iv and patient was able to urinate through condom baker Take note condom cath not always securely in place so Is and Os are approximate as patient does wet bed Ordered- new condom catheter on 05/22/17 Flomax 0.4mg PEG daily Proscar 5mg PEG daily continue Bethanecol 50mg PEG TID- started after persistent retention and found to be effective. monitor I's and O's - I/O: 780/350 Check bladder scan for residual urine three times weekly (5) Hypokalemia 10/12: K+ was 3.3; replaced K+ on 08/10: 4.2 (6) Sacral ulcer, resolved Healed Cont with offloading/cushioning/turning Continue frequent turning, protective ointment and skin checks. (7) History of coronary artery disease s/p cardiac stents on 06/13/15 Cont ASA 81mg via PEG daily Cont Coreg 3.125mg PEG BID Cont Plavix 75 mg PEG daily (8) Seizures Continue Keppra 500mg PEG BID for seizure prophylaxis Monitor for activity (9) Lower extremity edema Improved SCDs in place Pressure ulcer boots on b/l Continue to monitor (10) Prophylactic measure Pepcid 20 mg PEG BID Lovenox 40mg SC daily SCDs and offloading boots continue to turn and reposition q2hrs Continue to monitor medication administrations and clinical presentation weekly labs. vasoline ointment applied to feet prn to prevent hyperkeratosis Please hold feeding from 10pm-6am, placed into nursing communication Vitamin A & D for lips There is no update at this time. <Jeison Moore - Last Filed: 10/24/17 18:52> Objective - Vital Signs/Intake and Output Vital Signs (last 24 hours): Temp Pulse Resp BP Pulse Ox 98.6 F 96 H 20 129/76 98 10/24/17 00:20 10/24/17 00:20 10/24/17 00:20 10/24/17 00:20 10/24/17 00:20 Intake and Output: 10/24/17 10/24/17 06:59 18:59 Intake Total 1540 620 Output Total 600 300 Balance 940 320 - Medications Medications: Current Medications Acetylcysteine (Acetylcysteine 20%) 4 ml INH RQ8 [facility] Last Admin: 10/24/17 08:00 Dose: 4 ml Albuterol/Ipratropium (Duoneb 3 Mg/0.5 Mg (3 Ml) Ud) 3 ml INH RQ6 [facility] Last Admin: 10/24/17 13:15 Dose: 3 ml Aspirin (Aspirin Chewable) 81 mg PEG DAILY [facility] Last Admin: 10/24/17 10:50 Dose: 81 mg Carvedilol (Coreg) 3.125 mg PEG BID [facility] Last Admin: 10/24/17 17:51 Dose: 3.125 mg Enoxaparin Sodium (Lovenox) 30 mg SC DAILY [facility] Last Admin: 10/24/17 10:50 Dose: 30 mg Famotidine (Pepcid) 20 mg PEG DAILY [facility] Last Admin: 10/24/17 10:50 Dose: 20 mg Finasteride (Proscar) 5 mg PEG DAILY [facility] Last Admin: 10/24/17 10:50 Dose: 5 mg Dextrose/Sodium Chloride (Dextrose 5%/0.45% Ns 1000 Ml) 1,000 mls @ 75 mls/hr IV .[id number] [facility] Last Admin: 09/28/17 15:12 Dose: 75 mls/hr Levetiracetam (Keppra) 500 mg PEG BID [facility] Last Admin: 10/24/17 17:51 Dose: 500 mg Saccharomyces Boulardii (Florastor) 250 mg PEG DAILY [facility] Last Admin: 10/24/17 10:50 Dose: 250 mg Scopolamine (Transderm-Scop) 1 patch TD Q3D [facility] Last Admin: 10/21/17 04:58 Dose: 1 patch Tamsulosin HCl (Flomax) 0.4 mg PEG DAILY [facility] Last Admin: 10/24/17 10:50 Dose: 0.4 mg - Labs Labs: 10/19/17 08:50 10/19/17 08:50 PT 10.6 SECONDS (9.7-12.2) 11/24/15 14:10 INR 1.0 11/24/15 14:10 APTT 25 SECONDS (21-34) 11/24/15 14:10 Attending/Attestation - Attestation I have personally seen and examined this patient.: Yes I have fully participated in the care of the patient.: Yes I have reviewed all pertinent clinical information, including history, physical exam and plan: Yes
[2017-10-15] MEDS: Albuterol-Ipratrop 3 mg / 0.5 (3 ml) UD INH SCH ×4 (01:51→22:33)
[2017-10-15] MEDS: Acetylcysteine 20% Inhal Soln (4ml) INH SCH ×3 (01:51→22:32)
[2017-10-15] MEDS: levETIRAcetam 100 mg/ml (5ml) Oral Syringe PEG SCH ×2 (09:38→18:35)
[2017-10-15] MEDS: Saccharomyces Boulardi 250 mg Cap PEG SCH (09:39)
[2017-10-16] MEDS: Acetylcysteine 20% Inhal Soln (4ml) INH SCH ×3 (01:34→16:08)
[2017-10-16] MEDS: Albuterol-Ipratrop 3 mg / 0.5 (3 ml) UD INH SCH ×5 (01:34→20:53)
--- NOTE | 2017-10-16 07:14 | CP.PCM.PN ---
Subjective - Date & Time of Evaluation Date of Evaluation: 10/16/17 Time of Evaluation: 07:14 - Subjective Subjective: Patient was seen and examined at bedside in no acute distress. Review of systems not obtained due to anoxic brain injury. Objective - Vital Signs/Intake and Output Vital Signs (last 24 hours): Temp Pulse Resp BP Pulse Ox 98 F 84 20 121/80 98 10/16/17 00:00 10/16/17 00:00 10/16/17 00:00 10/16/17 00:00 10/16/17 00:00 Intake and Output: 10/16/17 10/16/17 06:59 18:59 Intake Total 340 Output Total 250 Balance 90 - Medications Medications: Current Medications Acetylcysteine (Acetylcysteine 20%) 4 ml INH RQ8 [facility] Last Admin: 10/16/17 01:34 Dose: Not Given Albuterol/Ipratropium (Duoneb 3 Mg/0.5 Mg (3 Ml) Ud) 3 ml INH RQ6 [facility] Last Admin: 10/16/17 01:34 Dose: 3 ml Aspirin (Aspirin Chewable) 81 mg PEG DAILY [facility] Last Admin: 10/15/17 09:38 Dose: 81 mg Carvedilol (Coreg) 3.125 mg PEG BID [facility] Last Admin: 10/15/17 18:00 Dose: 3.125 mg Famotidine (Pepcid) 20 mg PEG DAILY [facility] Last Admin: 10/15/17 09:38 Dose: 20 mg Finasteride (Proscar) 5 mg PEG DAILY [facility] Last Admin: 10/15/17 09:39 Dose: 5 mg Dextrose/Sodium Chloride (Dextrose 5%/0.45% Ns 1000 Ml) 1,000 mls @ 75 mls/hr IV .[id number] [facility] Last Admin: 09/28/17 15:12 Dose: 75 mls/hr Levetiracetam (Keppra) 500 mg PEG BID [facility] Last Admin: 10/15/17 18:35 Dose: 500 mg Saccharomyces Boulardii (Florastor) 250 mg PEG DAILY [facility] Last Admin: 10/15/17 09:39 Dose: 250 mg Tamsulosin HCl (Flomax) 0.4 mg PEG DAILY [facility] Last Admin: 10/15/17 09:38 Dose: 0.4 mg - Labs Labs: 10/12/17 06:59 10/12/17 06:59 PT 10.6 SECONDS (9.7-12.2) 11/24/15 14:10 INR 1.0 11/24/15 14:10 APTT 25 SECONDS (21-34) 11/24/15 14:10 - Additional Findings Additional findings: - Additional Findings Additional findings: - Head Exam Head Exam: ATRAUMATIC, NORMAL INSPECTION - Eye Exam Eye Exam: absent: EOMI, Normal appearance - ENT Exam ENT Exam: Mucous Membranes Moist - Neck Exam Additional comments: Trach in place - Respiratory Exam Respiratory Exam: Rales, Rhonchi, Wheezes. absent: Clear to Ausculation Bilateral (congestion-improving), Respiratory Distress - Cardiovascular Exam Cardiovascular Exam: REGULAR RHYTHM, +S1, +S2 - GI/Abdominal Exam GI & Abdominal Exam: Distended, Soft, Hypoactive Bowel Sounds. absent: Firm, Mass Additional comments: PEG in place - Extremities Exam Extremities Exam: absent: Pedal Edema - Neurological Exam Neurological Exam: Altered. absent: Alert, Awake, Oriented x3 - Psychiatric Exam Psychiatric exam: Flat Affect. absent: Normal Affect, Normal Mood - Skin Skin Exam: Dry, Intact, Normal Color, Warm Assessment and Plan (1) Anoxic encephalopathy Status: Chronic (2) Respiratory failure Status: Chronic (3) UTI (urinary tract infection) Status: Resolved (4) Urinary retention Status: Acute (5) Hypokalemia Status: Acute (6) Sacral ulcer Status: Resolved (7) History of coronary artery disease Status: Acute (8) Seizures Status: Acute (9) Lower extremity edema Status: Acute - Assessment and Plan (Free Text) Plan: (1) Anoxic encephalopathy s/p cardiac arrest in 05/2015 no acute changes Pt has non spontaneous movements. Continue tube feeds- goal of 60ml/hr, feedings held at night due to fluid overload (2) Respiratory failure Trach in place, continue daily monitoring for secretions. No change in management at this time. Continue with aggressive suctioning multiple times a day per respiratory therapist. Monitor for signs of respiratory distress Thick secretions Duoneb 3ml INH Q6 and Mucomyst 4ml INH Q8H Scopolamine 1 patch TD Q3D [facility] Repeat CXR on 05/28/17: linear increased consolidative changes in the right mid- lung zone and left lung base which may represent atelectasis and/or infiltrate. Questionable trace left pleural effusion. moderate venous congestion. cardiomegaly. degenerative changes in the spine and shoulders Repeat CXR 09/28/17: no active disease; no change from previous CXR. (3) UTI Leukocytosis secondary to UTI. Resolved 10/12: afebrile, WBC within normal range 08/10: WBC 8.2 afebrile Meropenem (started 07/22) - per Dr. Armstrong continue for a total of 2 weeks - Discontinued 08/05/17 ID consult: Dr. Armstrong --> help appreciated (4) Urinary retention 10/12: Condom baker in place; continue to monitor 07/21: NS stopped because tube feeds restarted 07/20: Urine dark in color, monitor, continue NS at 50 ml per hour 07/07/17: Catheter flushed, patient output approx. 500mL within one hour post flush. 06/27/17: Continue bladder massages to aid in voiding. 06/25/17: Patient voids with movement. Continue bladder massages to aid in voiding. 06/23/17: Patient will need to have daily bladder massage to allow for complete voiding 06/17/17: Nursing communication placed in: straight catherization with bladder scan> 100ml 06/08: urinary retention yesterday, was given 40mg lasix iv and patient was able to urinate through condom baker Take note condom cath not always securely in place so Is and Os are approximate as patient does wet bed Ordered- new condom catheter on 05/22/17 Flomax 0.4mg PEG daily Proscar 5mg PEG daily continue Bethanecol 50mg PEG TID- started after persistent retention and found to be effective. monitor I's and O's - I/O: 780/350 Check bladder scan for residual urine three times weekly (5) Hypokalemia 10/12: K+ was 3.3; replaced K+ on 08/10: 4.2 (6) Sacral ulcer, resolved Healed Cont with offloading/cushioning/turning Continue frequent turning, protective ointment and skin checks. (7) History of coronary artery disease s/p cardiac stents on 06/13/15 Cont ASA 81mg via PEG daily Cont Coreg 3.125mg PEG BID Cont Plavix 75 mg PEG daily (8) Seizures Continue Keppra 500mg PEG BID for seizure prophylaxis Monitor for activity (9) Lower extremity edema Improved SCDs in place Pressure ulcer boots on b/l Continue to monitor (10) Prophylactic measure Pepcid 20 mg PEG BID Lovenox 40mg SC daily SCDs and offloading boots continue to turn and reposition q2hrs Continue to monitor medication administrations and clinical presentation weekly labs. vasoline ointment applied to feet prn to prevent hyperkeratosis Please hold feeding from 10pm-6am, placed into nursing communication Vitamin A & D for lips There is no update at this time.
[2017-10-16] MEDS: levETIRAcetam 100 mg/ml (5ml) Oral Syringe PEG SCH ×2 (10:28→17:55)
[2017-10-16] MEDS: Saccharomyces Boulardi 250 mg Cap PEG SCH (10:28)
[2017-10-17] MEDS: Albuterol-Ipratrop 3 mg / 0.5 (3 ml) UD INH SCH ×4 (01:52→19:26)
[2017-10-17] MEDS: Acetylcysteine 20% Inhal Soln (4ml) INH SCH ×3 (01:52→19:26)
--- NOTE | 2017-10-17 04:05 | CP.PCM.PN ---
<Alisia Pappas - Last Filed: 10/17/17 04:03> Subjective - Date & Time of Evaluation Date of Evaluation: 10/17/17 Time of Evaluation: 04:03 - Subjective Subjective: Patient was seen and examined at bedside in no acute distress. Review of systems not obtained due to anoxic brain injury. Objective - Vital Signs/Intake and Output Vital Signs (last 24 hours): Temp Pulse Resp BP Pulse Ox 98.3 F 87 16 112/71 98 10/17/17 00:19 10/17/17 00:19 10/17/17 00:19 10/17/17 00:19 10/17/17 00:19 Intake and Output: 10/16/17 10/17/17 18:59 06:59 Intake Total 300 Output Total 200 700 Balance 100 -700 - Medications Medications: Current Medications Acetylcysteine (Acetylcysteine 20%) 4 ml INH RQ8 [facility] Last Admin: 10/17/17 01:52 Dose: 4 ml Albuterol/Ipratropium (Duoneb 3 Mg/0.5 Mg (3 Ml) Ud) 3 ml INH RQ6 [facility] Last Admin: 10/17/17 01:52 Dose: 3 ml Aspirin (Aspirin Chewable) 81 mg PEG DAILY [facility] Last Admin: 10/16/17 10:28 Dose: 81 mg Carvedilol (Coreg) 3.125 mg PEG BID [facility] Last Admin: 10/16/17 17:55 Dose: 3.125 mg Famotidine (Pepcid) 20 mg PEG DAILY [facility] Last Admin: 10/16/17 10:28 Dose: 20 mg Finasteride (Proscar) 5 mg PEG DAILY [facility] Last Admin: 10/16/17 10:28 Dose: 5 mg Dextrose/Sodium Chloride (Dextrose 5%/0.45% Ns 1000 Ml) 1,000 mls @ 75 mls/hr IV .[id number] [facility] Last Admin: 09/28/17 15:12 Dose: 75 mls/hr Levetiracetam (Keppra) 500 mg PEG BID [facility] Last Admin: 10/16/17 17:55 Dose: 500 mg Saccharomyces Boulardii (Florastor) 250 mg PEG DAILY [facility] Last Admin: 10/16/17 10:28 Dose: 250 mg Tamsulosin HCl (Flomax) 0.4 mg PEG DAILY [facility] Last Admin: 10/16/17 10:28 Dose: 0.4 mg - Labs Labs: 10/12/17 06:59 10/12/17 06:59 PT 10.6 SECONDS (9.7-12.2) 11/24/15 14:10 INR 1.0 11/24/15 14:10 APTT 25 SECONDS (21-34) 11/24/15 14:10 - Head Exam Head Exam: ATRAUMATIC, NORMAL INSPECTION - Eye Exam Eye Exam: EOMI, Normal appearance - ENT Exam ENT Exam: Mucous Membranes Moist - Neck Exam Additional comments: Trach in place - Respiratory Exam Respiratory Exam: Clear to Ausculation Bilateral, NORMAL BREATHING PATTERN - Cardiovascular Exam Cardiovascular Exam: REGULAR RHYTHM - GI/Abdominal Exam GI & Abdominal Exam: Soft, Hypoactive Bowel Sounds - Extremities Exam Extremities Exam: Normal Inspection - Neurological Exam Neurological Exam: absent: Alert, Awake - Skin Skin Exam: Normal Color, Warm Assessment and Plan - Assessment and Plan (Free Text) Assessment: (1) Anoxic encephalopathy s/p cardiac arrest in 05/2015 no acute changes Pt has non spontaneous movements. Continue tube feeds- goal of 60ml/hr, feedings held at night due to fluid overload (2) Respiratory failure Trach in place, continue daily monitoring for secretions. No change in management at this time. Continue with aggressive suctioning multiple times a day per respiratory therapist. Monitor for signs of respiratory distress Thick secretions Duoneb 3ml INH Q6 and Mucomyst 4ml INH Q8H Scopolamine 1 patch TD Q3D [facility] Repeat CXR on 05/28/17: linear increased consolidative changes in the right mid- lung zone and left lung base which may represent atelectasis and/or infiltrate. Questionable trace left pleural effusion. moderate venous congestion. cardiomegaly. degenerative changes in the spine and shoulders Repeat CXR 09/28/17: no active disease; no change from previous CXR. (3) UTI Leukocytosis secondary to UTI. Resolved 10/12: afebrile, WBC within normal range 08/10: WBC 8.2 afebrile Meropenem (started 07/22) - per Dr. Armstrong continue for a total of 2 weeks - Discontinued 08/05/17 ID consult: Dr. Armstrong --> help appreciated (4) Urinary retention 10/12: Condom baker in place; continue to monitor 07/21: NS stopped because tube feeds restarted 07/20: Urine dark in color, monitor, continue NS at 50 ml per hour 07/07/17: Catheter flushed, patient output approx. 500mL within one hour post flush. 06/27/17: Continue bladder massages to aid in voiding. 06/25/17: Patient voids with movement. Continue bladder massages to aid in voiding. 06/23/17: Patient will need to have daily bladder massage to allow for complete voiding 06/17/17: Nursing communication placed in: straight catherization with bladder scan> 100ml 06/08: urinary retention yesterday, was given 40mg lasix iv and patient was able to urinate through condom baker Take note condom cath not always securely in place so Is and Os are approximate as patient does wet bed Ordered- new condom catheter on 05/22/17 Flomax 0.4mg PEG daily Proscar 5mg PEG daily continue Bethanecol 50mg PEG TID- started after persistent retention and found to be effective. monitor I's and O's - I/O: 780/350 Check bladder scan for residual urine three times weekly (5) Hypokalemia 10/12: K+ was 3.3; replaced K+ on 08/10: 4.2 (6) Sacral ulcer, resolved Healed Cont with offloading/cushioning/turning Continue frequent turning, protective ointment and skin checks. (7) History of coronary artery disease s/p cardiac stents on 06/13/15 Cont ASA 81mg via PEG daily Cont Coreg 3.125mg PEG BID Cont Plavix 75 mg PEG daily (8) Seizures Continue Keppra 500mg PEG BID for seizure prophylaxis Monitor for activity (9) Lower extremity edema Improved SCDs in place Pressure ulcer boots on b/l Continue to monitor (10) Prophylactic measure Pepcid 20 mg PEG BID Lovenox 40mg SC daily SCDs and offloading boots continue to turn and reposition q2hrs Continue to monitor medication administrations and clinical presentation weekly labs. vasoline ointment applied to feet prn to prevent hyperkeratosis Please hold feeding from 10pm-6am, placed into nursing communication Vitamin A & D for lips There is no update at this time. <Jeison Moore - Last Filed: 10/24/17 19:15> Objective - Vital Signs/Intake and Output Vital Signs (last 24 hours): Temp Pulse Resp BP Pulse Ox 98.6 F 96 H 20 129/76 98 10/24/17 00:20 10/24/17 00:20 10/24/17 00:20 10/24/17 00:20 10/24/17 00:20 Intake and Output: 10/24/17 10/25/17 18:59 06:59 Intake Total 620 Output Total 300 Balance 320 - Medications Medications: Current Medications Acetylcysteine (Acetylcysteine 20%) 4 ml INH RQ8 [facility] Last Admin: 10/24/17 08:00 Dose: 4 ml Albuterol/Ipratropium (Duoneb 3 Mg/0.5 Mg (3 Ml) Ud) 3 ml INH RQ6 [facility] Last Admin: 10/24/17 13:15 Dose: 3 ml Aspirin (Aspirin Chewable) 81 mg PEG DAILY [facility] Last Admin: 10/24/17 10:50 Dose: 81 mg Carvedilol (Coreg) 3.125 mg PEG BID [facility] Last Admin: 10/24/17 17:51 Dose: 3.125 mg Enoxaparin Sodium (Lovenox) 30 mg SC DAILY [facility] Last Admin: 10/24/17 10:50 Dose: 30 mg Famotidine (Pepcid) 20 mg PEG DAILY [facility] Last Admin: 10/24/17 10:50 Dose: 20 mg Finasteride (Proscar) 5 mg PEG DAILY [facility] Last Admin: 10/24/17 10:50 Dose: 5 mg Dextrose/Sodium Chloride (Dextrose 5%/0.45% Ns 1000 Ml) 1,000 mls @ 75 mls/hr IV .[id number] [facility] Last Admin: 09/28/17 15:12 Dose: 75 mls/hr Levetiracetam (Keppra) 500 mg PEG BID [facility] Last Admin: 10/24/17 17:51 Dose: 500 mg Saccharomyces Boulardii (Florastor) 250 mg PEG DAILY [facility] Last Admin: 10/24/17 10:50 Dose: 250 mg Scopolamine (Transderm-Scop) 1 patch TD Q3D [facility] Last Admin: 10/21/17 04:58 Dose: 1 patch Tamsulosin HCl (Flomax) 0.4 mg PEG DAILY [facility] Last Admin: 12/02/17 10:50 Dose: 0.4 mg - Labs Labs: 10/19/17 08:50 10/19/17 08:50 PT 10.6 SECONDS (9.7-12.2) 11/24/15 14:10 INR 1.0 11/24/15 14:10 APTT 25 SECONDS (21-34) 11/24/15 14:10 Attending/Attestation - Attestation I have personally seen and examined this patient.: Yes I have fully participated in the care of the patient.: Yes I have reviewed all pertinent clinical information, including history, physical exam and plan: Yes
[2017-10-17] MEDS: levETIRAcetam 100 mg/ml (5ml) Oral Syringe PEG SCH ×2 (10:22→18:09)
[2017-10-17] MEDS: Saccharomyces Boulardi 250 mg Cap PEG SCH (10:36)
[2017-10-18] MEDS: Albuterol-Ipratrop 3 mg / 0.5 (3 ml) UD INH SCH ×4 (01:13→19:52)
[2017-10-18] MEDS: Acetylcysteine 20% Inhal Soln (4ml) INH SCH ×3 (01:13→19:52)
--- NOTE | 2017-10-18 03:46 | CP.PCM.PN ---
<Alisia Pappas - Last Filed: 10/18/17 06:47> Subjective - Date & Time of Evaluation Date of Evaluation: 10/18/17 Time of Evaluation: 05:00 - Subjective Subjective: Patient was seen and examined at bedside in no acute distress. Review of systems not obtained due to anoxic brain injury. Objective - Vital Signs/Intake and Output Vital Signs (last 24 hours): Temp Pulse Resp BP Pulse Ox 98.4 F 93 H 20 124/78 98 10/18/17 00:05 10/18/17 00:05 10/18/17 00:05 10/18/17 00:05 10/18/17 00:05 Intake and Output: 10/17/17 10/18/17 18:59 06:59 Intake Total 920 Output Total 200 850 Balance -200 70 - Medications Medications: Current Medications Acetylcysteine (Acetylcysteine 20%) 4 ml INH RQ8 [facility] Last Admin: 10/18/17 01:13 Dose: 4 ml Albuterol/Ipratropium (Duoneb 3 Mg/0.5 Mg (3 Ml) Ud) 3 ml INH RQ6 [facility] Last Admin: 10/18/17 01:13 Dose: 3 ml Aspirin (Aspirin Chewable) 81 mg PEG DAILY [facility] Last Admin: 10/17/17 10:25 Dose: 81 mg Carvedilol (Coreg) 3.125 mg PEG BID [facility] Last Admin: 10/17/17 18:09 Dose: 3.125 mg Famotidine (Pepcid) 20 mg PEG DAILY [facility] Last Admin: 10/17/17 10:23 Dose: 20 mg Finasteride (Proscar) 5 mg PEG DAILY [facility] Last Admin: 10/17/17 10:23 Dose: 5 mg Dextrose/Sodium Chloride (Dextrose 5%/0.45% Ns 1000 Ml) 1,000 mls @ 75 mls/hr IV .[id number] [facility] Last Admin: 09/28/17 15:12 Dose: 75 mls/hr Levetiracetam (Keppra) 500 mg PEG BID [facility] Last Admin: 10/17/17 18:09 Dose: 500 mg Saccharomyces Boulardii (Florastor) 250 mg PEG DAILY [facility] Last Admin: 10/17/17 10:36 Dose: 250 mg Tamsulosin HCl (Flomax) 0.4 mg PEG DAILY [facility] Last Admin: 10/17/17 10:23 Dose: 0.4 mg - Labs Labs: 10/12/17 06:59 10/12/17 06:59 PT 10.6 SECONDS (9.7-12.2) 11/24/15 14:10 INR 1.0 11/24/15 14:10 APTT 25 SECONDS (21-34) 11/24/15 14:10 - Constitutional Appears: Chronically Ill - Head Exam Head Exam: ATRAUMATIC, NORMAL INSPECTION - Eye Exam Eye Exam: EOMI, Normal appearance - ENT Exam ENT Exam: Mucous Membranes Moist - Neck Exam Additional comments: Trach in place - Respiratory Exam Respiratory Exam: Clear to Ausculation Bilateral, NORMAL BREATHING PATTERN - Cardiovascular Exam Cardiovascular Exam: REGULAR RHYTHM - GI/Abdominal Exam GI & Abdominal Exam: Soft, Hypoactive Bowel Sounds - Extremities Exam Extremities Exam: Normal Inspection - Neurological Exam Neurological Exam: absent: Alert, Awake - Skin Skin Exam: Normal Color, Warm Assessment and Plan - Assessment and Plan (Free Text) Assessment: (1) Anoxic encephalopathy s/p cardiac arrest in 05/2015 no acute changes Pt has non spontaneous movements. Continue tube feeds- goal of 60ml/hr, feedings held at night due to fluid overload (2) Respiratory failure Trach in place, continue daily monitoring for secretions. No change in management at this time. Continue with aggressive suctioning multiple times a day per respiratory therapist. Monitor for signs of respiratory distress Thick secretions Duoneb 3ml INH Q6 and Mucomyst 4ml INH Q8H Scopolamine 1 patch TD Q3D [facility] Repeat CXR on 05/28/17: linear increased consolidative changes in the right mid- lung zone and left lung base which may represent atelectasis and/or infiltrate. Questionable trace left pleural effusion. moderate venous congestion. cardiomegaly. degenerative changes in the spine and shoulders Repeat CXR 09/28/17: no active disease; no change from previous CXR. (3) UTI Leukocytosis secondary to UTI. Resolved 10/12: afebrile, WBC within normal range 08/10: WBC 8.2 afebrile Meropenem (started 07/22) - per Dr. Armstrong continue for a total of 2 weeks - Discontinued 08/05/17 ID consult: Dr. Armstrong --> help appreciated (4) Urinary retention 10/12: Condom baker in place; continue to monitor 07/21: NS stopped because tube feeds restarted 07/20: Urine dark in color, monitor, continue NS at 50 ml per hour 07/07/17: Catheter flushed, patient output approx. 500mL within one hour post flush. 06/27/17: Continue bladder massages to aid in voiding. 06/25/17: Patient voids with movement. Continue bladder massages to aid in voiding. 06/23/17: Patient will need to have daily bladder massage to allow for complete voiding 06/17/17: Nursing communication placed in: straight catherization with bladder scan> 100ml 06/08: urinary retention yesterday, was given 40mg lasix iv and patient was able to urinate through condom baker Take note condom cath not always securely in place so Is and Os are approximate as patient does wet bed Ordered- new condom catheter on 05/22/17 Flomax 0.4mg PEG daily Proscar 5mg PEG daily continue Bethanecol 50mg PEG TID- started after persistent retention and found to be effective. monitor I's and O's - I/O: 780/350 Check bladder scan for residual urine three times weekly (5) Hypokalemia 10/12: K+ was 3.3; replaced K+ on 08/10: 4.2 (6) Sacral ulcer, resolved Healed Cont with offloading/cushioning/turning Continue frequent turning, protective ointment and skin checks. (7) History of coronary artery disease s/p cardiac stents on 06/13/15 Cont ASA 81mg via PEG daily Cont Coreg 3.125mg PEG BID Cont Plavix 75 mg PEG daily (8) Seizures Continue Keppra 500mg PEG BID for seizure prophylaxis Monitor for activity (9) Lower extremity edema Improved SCDs in place Pressure ulcer boots on b/l Continue to monitor (10) Prophylactic measure Pepcid 20 mg PEG BID Lovenox 40mg SC daily SCDs and offloading boots continue to turn and reposition q2hrs Continue to monitor medication administrations and clinical presentation weekly labs. vasoline ointment applied to feet prn to prevent hyperkeratosis Please hold feeding from 10pm-6am, placed into nursing communication Vitamin A & D for lips There is no update at this time. <Jeison Moore - Last Filed: 10/18/17 17:17> Objective - Vital Signs/Intake and Output Vital Signs (last 24 hours): Temp Pulse Resp BP Pulse Ox 97.7 F 81 20 114/74 96 10/18/17 16:07 10/18/17 16:07 10/18/17 16:07 10/18/17 16:07 10/18/17 16:07 Intake and Output: 10/18/17 10/18/17 06:59 18:59 Intake Total 1300 Output Total 1150 Balance 150 - Medications Medications: Current Medications Acetylcysteine (Acetylcysteine 20%) 4 ml INH RQ8 [facility] Last Admin: 10/18/17 07:30 Dose: 4 ml Albuterol/Ipratropium (Duoneb 3 Mg/0.5 Mg (3 Ml) Ud) 3 ml INH RQ6 [facility] Last Admin: 10/18/17 13:20 Dose: 3 ml Aspirin (Aspirin Chewable) 81 mg PEG DAILY [facility] Last Admin: 10/18/17 09:12 Dose: 81 mg Carvedilol (Coreg) 3.125 mg PEG BID [facility] Last Admin: 10/18/17 09:13 Dose: 3.125 mg Enoxaparin Sodium (Lovenox) 30 mg SC DAILY [facility] Last Admin: 10/18/17 09:15 Dose: 30 mg Famotidine (Pepcid) 20 mg PEG DAILY [facility] Last Admin: 10/18/17 09:13 Dose: 20 mg Finasteride (Proscar) 5 mg PEG DAILY [facility] Last Admin: 10/18/17 09:13 Dose: 5 mg Dextrose/Sodium Chloride (Dextrose 5%/0.45% Ns 1000 Ml) 1,000 mls @ 75 mls/hr IV .[id number] [facility] Last Admin: 09/28/17 15:12 Dose: 75 mls/hr Levetiracetam (Keppra) 500 mg PEG BID [facility] Last Admin: 10/18/17 09:12 Dose: 500 mg Saccharomyces Boulardii (Florastor) 250 mg PEG DAILY [facility] Last Admin: 10/18/17 09:12 Dose: 250 mg Scopolamine (Transderm-Scop) 1 patch TD Q3D [facility] Last Admin: 10/18/17 04:20 Dose: 1 patch Tamsulosin HCl (Flomax) 0.4 mg PEG DAILY [facility] Last Admin: 10/18/17 09:12 Dose: 0.4 mg - Labs Labs: 10/12/17 06:59 10/12/17 06:59 PT 10.6 SECONDS (9.7-12.2) 11/24/15 14:10 INR 1.0 11/24/15 14:10 APTT 25 SECONDS (21-34) 11/24/15 14:10 Attending/Attestation - Attestation I have personally seen and examined this patient.: Yes I have fully participated in the care of the patient.: Yes I have reviewed all pertinent clinical information, including history, physical exam and plan: Yes Notes (Text): 10/18/17 17:16 Seen and examined,no chnages,lying comfortable I agree with the residents assessment and the plan
[2017-10-18] MEDS: Saccharomyces Boulardi 250 mg Cap PEG SCH (09:12)
[2017-10-18] MEDS: levETIRAcetam 100 mg/ml (5ml) Oral Syringe PEG SCH ×2 (09:12→17:20)
[2017-10-18] MEDS: Enoxaparin 30 mg Syringe SC SCH (09:15)
[2017-10-19] MEDS: Acetylcysteine 20% Inhal Soln (4ml) INH SCH ×4 (00:13→19:36)
[2017-10-19] MEDS: Albuterol-Ipratrop 3 mg / 0.5 (3 ml) UD INH SCH ×5 (00:13→19:36)
[2017-10-19 09:04] LABS: BASO % 0.4 % (0.0-2.0); EOS # 0.4 K/uL (0.0-0.7); EOS % 4.2 % (0.0-4.0); HEMOGLOBIN 10.7 g/dL (12.0-18.0); LYMPH # 2.9 K/uL (1.0-4.3); LYMPH % 28.3 % (20.0-40.0); MEAN CELL VOLUME 89.7 fL (80.0-94.0); MEAN CORPUSCULAR HEMOGLOBIN 29.9 pg (27.0-31.0); MEAN CORPUSCULAR HGB CONC 33.3 g/dL (33.0-37.0); MEAN PLATELET VOLUME 9.3 fL (7.2-11.7); MONO # 0.9 K/uL (0.0-0.8); MONO % 8.4 % (0.0-10.0); NEUT % 58.7 % (50.0-75.0); NRBC % 0.1 % (0.0-2.0); RBC 3.59 Mil/uL (4.40-5.90); RED CELL DISTRIBUTION WIDTH 15.8 % (11.5-14.5); WHITE BLOOD COUNT 10.3 K/uL (4.8-10.8)
[2017-10-19 09:27] LABS: ALBUMIN 3.4 g/dL (3.5-5.0); ALT/SGPT 68 U/L (21-72); AST/SGOT 27 U/L (17-59); BLOOD UREA NITROGEN 15 mg/dL (9-20); GFR NON-AFRICAN AMERICAN > 60
[2017-10-19 09:36] LABS: ALB/GLOB RATIO 0.7 (1.0-2.1)
--- NOTE | 2017-10-19 10:28 | CP.PCM.PN ---
<Vesna Turpin - Last Filed: 10/19/17 11:14> Subjective - Date & Time of Evaluation Date of Evaluation: 10/19/17 Time of Evaluation: 10:26 - Subjective Subjective: Medicine Progress Note for Dr. Chavis Patient was seen and examined at bedside in no acute distress. Review of systems not obtained due to anoxic brain injury. Objective - Vital Signs/Intake and Output Vital Signs (last 24 hours): Temp Pulse Resp BP Pulse Ox 98.1 F 88 20 112/72 98 10/19/17 08:17 10/19/17 08:17 10/19/17 08:17 10/19/17 08:17 10/19/17 08:17 Intake and Output: 10/19/17 10/19/17 06:59 18:59 Intake Total 380 Output Total 300 Balance 80 - Medications Medications: Current Medications Acetylcysteine (Acetylcysteine 20%) 4 ml INH RQ8 [facility] Last Admin: 10/19/17 07:49 Dose: 4 ml Albuterol/Ipratropium (Duoneb 3 Mg/0.5 Mg (3 Ml) Ud) 3 ml INH RQ6 [facility] Last Admin: 10/19/17 07:49 Dose: 3 ml Aspirin (Aspirin Chewable) 81 mg PEG DAILY [facility] Last Admin: 10/18/17 09:12 Dose: 81 mg Carvedilol (Coreg) 3.125 mg PEG BID [facility] Last Admin: 10/18/17 17:20 Dose: 3.125 mg Enoxaparin Sodium (Lovenox) 30 mg SC DAILY [facility] Last Admin: 10/18/17 09:15 Dose: 30 mg Famotidine (Pepcid) 20 mg PEG DAILY [facility] Last Admin: 10/18/17 09:13 Dose: 20 mg Finasteride (Proscar) 5 mg PEG DAILY [facility] Last Admin: 10/18/17 09:13 Dose: 5 mg Dextrose/Sodium Chloride (Dextrose 5%/0.45% Ns 1000 Ml) 1,000 mls @ 75 mls/hr IV .[id number] [facility] Last Admin: 09/28/17 15:12 Dose: 75 mls/hr Levetiracetam (Keppra) 500 mg PEG BID [facility] Last Admin: 10/18/17 17:20 Dose: 500 mg Potassium Chloride (Potassium Chloride Oral Soln) 40 meq PEG ONCE ONE Stop: 10/19/17 10:26 Saccharomyces Boulardii (Florastor) 250 mg PEG DAILY [facility] Last Admin: 10/18/17 09:12 Dose: 250 mg Scopolamine (Transderm-Scop) 1 patch TD Q3D [facility] Last Admin: 10/18/17 04:20 Dose: 1 patch Tamsulosin HCl (Flomax) 0.4 mg PEG DAILY [facility] Last Admin: 10/18/17 09:12 Dose: 0.4 mg - Labs Labs: 10/19/17 08:50 10/19/17 08:50 PT 10.6 SECONDS (9.7-12.2) 11/24/15 14:10 INR 1.0 11/24/15 14:10 APTT 25 SECONDS (21-34) 11/24/15 14:10 - Additional Findings Additional findings: - Head Exam Head Exam: ATRAUMATIC, NORMAL INSPECTION - Eye Exam Eye Exam: absent: EOMI, Normal appearance - ENT Exam ENT Exam: Mucous Membranes Moist - Neck Exam Additional comments: Trach in place - Respiratory Exam Respiratory Exam: Rales, Rhonchi, Wheezes. absent: Clear to Ausculation Bilateral (congestion-improving), Respiratory Distress - Cardiovascular Exam Cardiovascular Exam: REGULAR RHYTHM, +S1, +S2 - GI/Abdominal Exam GI & Abdominal Exam: Distended, Soft, Hypoactive Bowel Sounds. absent: Firm, Mass Additional comments: PEG in place - Extremities Exam Extremities Exam: absent: Pedal Edema - Neurological Exam Neurological Exam: Altered. absent: Alert, Awake, Oriented x3 - Psychiatric Exam Psychiatric exam: Flat Affect. absent: Normal Affect, Normal Mood - Skin Skin Exam: Dry, Intact, Normal Color, Warm; no sacral ulcers noted Assessment and Plan (1) Anoxic encephalopathy Status: Chronic (2) Respiratory failure Status: Chronic (3) UTI (urinary tract infection) Status: Resolved (4) Urinary retention Status: Acute (5) Hypokalemia Status: Acute (6) Sacral ulcer Status: Resolved (7) History of coronary artery disease Status: Acute (8) Seizures Status: Acute (9) Lower extremity edema Status: Acute - Assessment and Plan (Free Text) Plan: (1) Anoxic encephalopathy s/p cardiac arrest in 05/2015 no acute changes Pt has non spontaneous movements. Continue tube feeds- goal of 60ml/hr, feedings held at night due to fluid overload--> tube feeds 12h (2) Respiratory failure Trach in place, continue daily monitoring for secretions. No change in management at this time. Continue with aggressive suctioning multiple times a day per respiratory therapist. Monitor for signs of respiratory distress Thick secretions Duoneb 3ml INH Q6 and Mucomyst 4ml INH Q8H Scopolamine 1 patch TD Q3D JOO Repeat CXR on 05/28/17: linear increased consolidative changes in the right mid- lung zone and left lung base which may represent atelectasis and/or infiltrate. Questionable trace left pleural effusion. moderate venous congestion. cardiomegaly. degenerative changes in the spine and shoulders Repeat CXR 09/28/17: no active disease; no change from previous CXR. (3) UTI Leukocytosis secondary to UTI. Resolved 10/19/17: afebrile, WBC within normal range 10/12: afebrile, WBC within normal range 08/10: WBC 8.2 afebrile Meropenem (started 07/22) - per Dr. Armstrong continue for a total of 2 weeks - Discontinued 08/05/17 ID consult: Dr. Armstrong --> help appreciated (4) Urinary retention 10/12: Condom baker in place; continue to monitor 07/21: NS stopped because tube feeds restarted 07/20: Urine dark in color, monitor, continue NS at 50 ml per hour 07/07/17: Catheter flushed, patient output approx. 500mL within one hour post flush. 06/27/17: Continue bladder massages to aid in voiding. 06/25/17: Patient voids with movement. Continue bladder massages to aid in voiding. 06/23/17: Patient will need to have daily bladder massage to allow for complete voiding 06/17/17: Nursing communication placed in: straight catherization with bladder scan> 100ml 06/08: urinary retention yesterday, was given 40mg lasix iv and patient was able to urinate through condom baker Take note condom cath not always securely in place so Is and Os are approximate as patient does wet bed Ordered- new condom catheter on 05/22/17 Flomax 0.4mg PEG daily Proscar 5mg PEG daily continue Bethanecol 50mg PEG TID- started after persistent retention and found to be effective. monitor I's and O's - I/O: 780/350 Check bladder scan for residual urine three times weekly (5) Hypokalemia 10/12: K+ was 3.3; replaced K+ on 08/10: 4.2 (6) Sacral ulcer, resolved Healed Cont with offloading/cushioning/turning Continue frequent turning, protective ointment and skin checks. (7) History of coronary artery disease s/p cardiac stents on 06/13/15 Cont ASA 81mg via PEG daily Cont Coreg 3.125mg PEG BID Cont Plavix 75 mg PEG daily (8) Seizures Continue Keppra 500mg PEG BID for seizure prophylaxis Monitor for activity (9) Lower extremity edema Improved SCDs in place Pressure ulcer boots on b/l Continue to monitor (10) Prophylactic measure Pepcid 20 mg PEG BID Lovenox 40mg SC daily SCDs and offloading boots continue to turn and reposition q2hrs Continue to monitor medication administrations and clinical presentation weekly labs. vasoline ointment applied to feet prn to prevent hyperkeratosis Please hold feeding from 10pm-6am, placed into nursing communication Vitamin A & D for lips There is no update at this time. <Amandeep Chavis H - Last Filed: 10/19/17 13:05> Objective - Vital Signs/Intake and Output Vital Signs (last 24 hours): Temp Pulse Resp BP Pulse Ox 98.1 F 88 20 112/72 98 10/19/17 08:17 10/19/17 08:17 10/19/17 08:17 10/19/17 08:17 10/19/17 08:17 Intake and Output: 10/19/17 10/19/17 06:59 18:59 Intake Total 380 Output Total 300 Balance 80 - Medications Medications: Current Medications Acetylcysteine (Acetylcysteine 20%) 4 ml INH RQ8 [facility] Last Admin: 10/19/17 07:49 Dose: 4 ml Albuterol/Ipratropium (Duoneb 3 Mg/0.5 Mg (3 Ml) Ud) 3 ml INH RQ6 [facility] Last Admin: 10/19/17 07:49 Dose: 3 ml Aspirin (Aspirin Chewable) 81 mg PEG DAILY [facility] Last Admin: 10/19/17 10:31 Dose: 81 mg Carvedilol (Coreg) 3.125 mg PEG BID [facility] Last Admin: 10/19/17 10:33 Dose: 3.125 mg Enoxaparin Sodium (Lovenox) 30 mg SC DAILY [facility] Last Admin: 10/19/17 10:32 Dose: 30 mg Famotidine (Pepcid) 20 mg PEG DAILY [facility] Last Admin: 10/19/17 10:34 Dose: 20 mg Finasteride (Proscar) 5 mg PEG DAILY [facility] Last Admin: 10/19/17 10:34 Dose: 5 mg Dextrose/Sodium Chloride (Dextrose 5%/0.45% Ns 1000 Ml) 1,000 mls @ 75 mls/hr IV .[id number] [facility] Last Admin: 09/28/17 15:12 Dose: 75 mls/hr Levetiracetam (Keppra) 500 mg PEG BID [facility] Last Admin: 10/19/17 10:34 Dose: 500 mg Saccharomyces Boulardii (Florastor) 250 mg PEG DAILY [facility] Last Admin: 10/19/17 10:32 Dose: 250 mg Scopolamine (Transderm-Scop) 1 patch TD Q3D [facility] Last Admin: 10/18/17 04:20 Dose: 1 patch Tamsulosin HCl (Flomax) 0.4 mg PEG DAILY [facility] Last Admin: 10/19/17 10:32 Dose: 0.4 mg - Labs Labs: 10/19/17 08:50 10/19/17 08:50 PT 10.6 SECONDS (9.7-12.2) 11/24/15 14:10 INR 1.0 11/24/15 14:10 APTT 25 SECONDS (21-34) 11/24/15 14:10 Assessment and Plan (1) Prophylactic measure Status: Acute (2) Anoxic encephalopathy Status: Chronic (3) STEMI (ST elevation myocardial infarction) Status: Acute (4) Cardiac arrest Status: Acute (5) Seizures Status: Acute (6) Respiratory failure Status: Chronic Attending/Attestation - Attestation I have personally seen and examined this patient.: Yes I have fully participated in the care of the patient.: Yes I have reviewed all pertinent clinical information, including history, physical exam and plan: Yes Notes (Text): 10/19/17 13:04 Medical attending: Patient was seen and examined by me, agrees the above note by medical/surgery registered nurse. Situation does not change from before Today we turned the patient over to inspect his sacral area and there are no open wounds however he does have area that is covered with cream where the skin appears to be slightly red Thank you very much, Amandeep Chavis
[2017-10-19] MEDS: Enoxaparin 30 mg Syringe SC SCH (10:32)
[2017-10-19] MEDS: Saccharomyces Boulardi 250 mg Cap PEG SCH (10:32)
[2017-10-19] MEDS: levETIRAcetam 100 mg/ml (5ml) Oral Syringe PEG SCH ×2 (10:34→17:17)
[2017-10-20] MEDS: Acetylcysteine 20% Inhal Soln (4ml) INH SCH ×3 (02:19→19:51)
[2017-10-20] MEDS: Albuterol-Ipratrop 3 mg / 0.5 (3 ml) UD INH SCH ×4 (02:20→19:51)
--- NOTE | 2017-10-20 09:23 | CP.PCM.PN ---
Subjective - Date & Time of Evaluation Date of Evaluation: 10/20/17 Time of Evaluation: 09:22 - Subjective Subjective: Medicine Progress Note for Dr. Chavis Patient was seen and examined at bedside in no acute distress. Review of systems not obtained due to anoxic brain injury. Objective - Vital Signs/Intake and Output Vital Signs (last 24 hours): Temp Pulse Resp BP Pulse Ox 97.4 F L 63 20 119/73 99 10/20/17 08:28 10/20/17 08:28 10/20/17 08:28 10/20/17 08:28 10/20/17 08:28 Intake and Output: 10/20/17 10/20/17 06:59 18:59 Intake Total 1300 Output Total 1201 Balance 99 - Medications Medications: Current Medications Acetylcysteine (Acetylcysteine 20%) 4 ml INH RQ8 [facility] Last Admin: 10/20/17 07:58 Dose: 4 ml Albuterol/Ipratropium (Duoneb 3 Mg/0.5 Mg (3 Ml) Ud) 3 ml INH RQ6 [facility] Last Admin: 10/20/17 07:57 Dose: 3 ml Aspirin (Aspirin Chewable) 81 mg PEG DAILY [facility] Last Admin: 10/19/17 10:31 Dose: 81 mg Carvedilol (Coreg) 3.125 mg PEG BID [facility] Last Admin: 10/19/17 17:17 Dose: 3.125 mg Enoxaparin Sodium (Lovenox) 30 mg SC DAILY [facility] Last Admin: 10/19/17 10:32 Dose: 30 mg Famotidine (Pepcid) 20 mg PEG DAILY [facility] Last Admin: 10/19/17 10:34 Dose: 20 mg Finasteride (Proscar) 5 mg PEG DAILY [facility] Last Admin: 10/19/17 10:34 Dose: 5 mg Dextrose/Sodium Chloride (Dextrose 5%/0.45% Ns 1000 Ml) 1,000 mls @ 75 mls/hr IV .[id number] [facility] Last Admin: 09/28/17 15:12 Dose: 75 mls/hr Levetiracetam (Keppra) 500 mg PEG BID [facility] Last Admin: 10/19/17 17:17 Dose: 500 mg Saccharomyces Boulardii (Florastor) 250 mg PEG DAILY [facility] Last Admin: 10/19/17 10:32 Dose: 250 mg Scopolamine (Transderm-Scop) 1 patch TD Q3D [facility] Last Admin: 10/18/17 04:20 Dose: 1 patch Tamsulosin HCl (Flomax) 0.4 mg PEG DAILY [facility] Last Admin: 10/19/17 10:32 Dose: 0.4 mg - Labs Labs: 10/19/17 08:50 10/19/17 08:50 PT 10.6 SECONDS (9.7-12.2) 11/24/15 14:10 INR 1.0 11/24/15 14:10 APTT 25 SECONDS (21-34) 11/24/15 14:10 - Additional Findings Additional findings: - Head Exam Head Exam: ATRAUMATIC, NORMAL INSPECTION - Eye Exam Eye Exam: absent: EOMI, Normal appearance - ENT Exam ENT Exam: Mucous Membranes Moist - Neck Exam Additional comments: Trach in place - Respiratory Exam Respiratory Exam: Rales, Rhonchi, Wheezes. absent: Clear to Ausculation Bilateral (congestion-improving), Respiratory Distress - Cardiovascular Exam Cardiovascular Exam: REGULAR RHYTHM, +S1, +S2 - GI/Abdominal Exam GI & Abdominal Exam: Distended, Soft, Hypoactive Bowel Sounds. absent: Firm, Mass Additional comments: PEG in place - Extremities Exam Extremities Exam: absent: Pedal Edema - Neurological Exam Neurological Exam: Altered. absent: Alert, Awake, Oriented x3 - Psychiatric Exam Psychiatric exam: Flat Affect. absent: Normal Affect, Normal Mood - Skin Skin Exam: Dry, Intact, Normal Color, Warm; no sacral ulcers noted Assessment and Plan (1) Anoxic encephalopathy Status: Chronic (2) Respiratory failure Status: Chronic (3) UTI (urinary tract infection) Status: Resolved (4) Urinary retention Status: Acute (5) Hypokalemia Status: Acute (6) Sacral ulcer Status: Resolved (7) History of coronary artery disease Status: Acute (8) Seizures Status: Acute (9) Lower extremity edema Status: Acute - Assessment and Plan (Free Text) Plan: (1) Anoxic encephalopathy s/p cardiac arrest in 05/2015 no acute changes Pt has non spontaneous movements. Continue tube feeds- goal of 60ml/hr, feedings held at night due to fluid overload--> tube feeds 12h (2) Respiratory failure Trach in place, continue daily monitoring for secretions. No change in management at this time. Continue with aggressive suctioning multiple times a day per respiratory therapist. Monitor for signs of respiratory distress Thick secretions Duoneb 3ml INH Q6 and Mucomyst 4ml INH Q8H Scopolamine 1 patch TD Q3D JOO Repeat CXR on 05/28/17: linear increased consolidative changes in the right mid- lung zone and left lung base which may represent atelectasis and/or infiltrate. Questionable trace left pleural effusion. moderate venous congestion. cardiomegaly. degenerative changes in the spine and shoulders Repeat CXR 09/28/17: no active disease; no change from previous CXR. (3) UTI Leukocytosis secondary to UTI. Resolved 10/19/17: afebrile, WBC within normal range 10/12: afebrile, WBC within normal range 08/10: WBC 8.2 afebrile Meropenem (started 07/22) - per Dr. Armstrong continue for a total of 2 weeks - Discontinued 08/05/17 ID consult: Dr. Armstrong --> help appreciated (4) Urinary retention 10/12: Condom baker in place; continue to monitor 07/21: NS stopped because tube feeds restarted 07/20: Urine dark in color, monitor, continue NS at 50 ml per hour 07/07/17: Catheter flushed, patient output approx. 500mL within one hour post flush. 06/27/17: Continue bladder massages to aid in voiding. 06/25/17: Patient voids with movement. Continue bladder massages to aid in voiding. 06/23/17: Patient will need to have daily bladder massage to allow for complete voiding 06/17/17: Nursing communication placed in: straight catherization with bladder scan> 100ml 06/08: urinary retention yesterday, was given 40mg lasix iv and patient was able to urinate through condom baker Take note condom cath not always securely in place so Is and Os are approximate as patient does wet bed Ordered- new condom catheter on 05/22/17 Flomax 0.4mg PEG daily Proscar 5mg PEG daily continue Bethanecol 50mg PEG TID- started after persistent retention and found to be effective. monitor I's and O's - I/O: 780/350 Check bladder scan for residual urine three times weekly (5) Hypokalemia 10/12: K+ was 3.3; replaced K+ on 08/10: 4.2 (6) Sacral ulcer, resolved Healed Cont with offloading/cushioning/turning Continue frequent turning, protective ointment and skin checks. (7) History of coronary artery disease s/p cardiac stents on 06/13/15 Cont ASA 81mg via PEG daily Cont Coreg 3.125mg PEG BID Cont Plavix 75 mg PEG daily (8) Seizures Continue Keppra 500mg PEG BID for seizure prophylaxis Monitor for activity (9) Lower extremity edema Improved SCDs in place Pressure ulcer boots on b/l Continue to monitor (10) Prophylactic measure Pepcid 20 mg PEG BID Lovenox 40mg SC daily SCDs and offloading boots continue to turn and reposition q2hrs Continue to monitor medication administrations and clinical presentation weekly labs. vasoline ointment applied to feet prn to prevent hyperkeratosis Please hold feeding from 10pm-6am, placed into nursing communication Vitamin A & D for lips There is no update at this time.
[2017-10-20] MEDS: Enoxaparin 30 mg Syringe SC SCH (10:57)
[2017-10-20] MEDS: levETIRAcetam 100 mg/ml (5ml) Oral Syringe PEG SCH ×2 (10:57→17:40)
[2017-10-20] MEDS: Saccharomyces Boulardi 250 mg Cap PEG SCH (10:58)
[2017-10-21] MEDS: Albuterol-Ipratrop 3 mg / 0.5 (3 ml) UD INH SCH ×4 (01:35→19:56)
[2017-10-21] MEDS: Acetylcysteine 20% Inhal Soln (4ml) INH SCH ×3 (01:35→19:57)
--- NOTE | 2017-10-21 07:28 | CP.PCM.PN ---
Subjective - Date & Time of Evaluation Date of Evaluation: 10/21/17 Time of Evaluation: 07:27 - Subjective Subjective: Medicine Progress Note for Dr. Chavis Patient was seen and examined at bedside in no acute distress. Review of systems not obtained due to anoxic brain injury. Objective - Vital Signs/Intake and Output Vital Signs (last 24 hours): Temp Pulse Resp BP Pulse Ox 98.0 F 69 20 115/77 100 10/21/17 00:00 10/21/17 00:00 10/21/17 00:00 10/21/17 00:00 10/21/17 00:00 Intake and Output: 10/21/17 10/21/17 06:59 18:59 Intake Total 920 Output Total 751 Balance 169 - Medications Medications: Current Medications Acetylcysteine (Acetylcysteine 20%) 4 ml INH RQ8 [facility] Last Admin: 10/21/17 01:35 Dose: 4 ml Albuterol/Ipratropium (Duoneb 3 Mg/0.5 Mg (3 Ml) Ud) 3 ml INH RQ6 [facility] Last Admin: 10/21/17 01:35 Dose: 3 ml Aspirin (Aspirin Chewable) 81 mg PEG DAILY [facility] Last Admin: 10/20/17 10:58 Dose: 81 mg Carvedilol (Coreg) 3.125 mg PEG BID [facility] Last Admin: 10/20/17 17:41 Dose: 3.125 mg Enoxaparin Sodium (Lovenox) 30 mg SC DAILY [facility] Last Admin: 10/20/17 10:57 Dose: 30 mg Famotidine (Pepcid) 20 mg PEG DAILY [facility] Last Admin: 10/20/17 10:58 Dose: 20 mg Finasteride (Proscar) 5 mg PEG DAILY [facility] Last Admin: 10/20/17 11:02 Dose: 5 mg Dextrose/Sodium Chloride (Dextrose 5%/0.45% Ns 1000 Ml) 1,000 mls @ 75 mls/hr IV .[id number] [facility] Last Admin: 09/28/17 15:12 Dose: 75 mls/hr Levetiracetam (Keppra) 500 mg PEG BID [facility] Last Admin: 10/20/17 17:40 Dose: 500 mg Saccharomyces Boulardii (Florastor) 250 mg PEG DAILY [facility] Last Admin: 10/20/17 10:58 Dose: 250 mg Scopolamine (Transderm-Scop) 1 patch TD Q3D [facility] Last Admin: 10/18/17 04:20 Dose: 1 patch Tamsulosin HCl (Flomax) 0.4 mg PEG DAILY [facility] Last Admin: 10/20/17 10:59 Dose: 0.4 mg - Labs Labs: 10/19/17 08:50 10/19/17 08:50 PT 10.6 SECONDS (9.7-12.2) 11/24/15 14:10 INR 1.0 11/24/15 14:10 APTT 25 SECONDS (21-34) 11/24/15 14:10 - Additional Findings Additional findings: - Head Exam Head Exam: ATRAUMATIC, NORMAL INSPECTION - Eye Exam Eye Exam: absent: EOMI, Normal appearance - ENT Exam ENT Exam: Mucous Membranes Moist - Neck Exam Additional comments: Trach in place - Respiratory Exam Respiratory Exam: Rales, Rhonchi, Wheezes. absent: Clear to Ausculation Bilateral (congestion-improving), Respiratory Distress - Cardiovascular Exam Cardiovascular Exam: REGULAR RHYTHM, +S1, +S2 - GI/Abdominal Exam GI & Abdominal Exam: Distended, Soft, Hypoactive Bowel Sounds. absent: Firm, Mass Additional comments: PEG in place - Extremities Exam Extremities Exam: absent: Pedal Edema - Neurological Exam Neurological Exam: Altered. absent: Alert, Awake, Oriented x3 - Psychiatric Exam Psychiatric exam: Flat Affect. absent: Normal Affect, Normal Mood - Skin Skin Exam: Dry, Intact, Normal Color, Warm; no sacral ulcers noted Assessment and Plan (1) Anoxic encephalopathy Status: Chronic (2) Respiratory failure Status: Chronic (3) UTI (urinary tract infection) Status: Resolved (4) Urinary retention Status: Acute (5) Hypokalemia Status: Acute (6) Sacral ulcer Status: Resolved (7) History of coronary artery disease Status: Acute (8) Seizures Status: Acute (9) Lower extremity edema Status: Acute - Assessment and Plan (Free Text) Plan: (1) Anoxic encephalopathy s/p cardiac arrest in 05/2015 no acute changes Pt has non spontaneous movements. Continue tube feeds- goal of 60ml/hr, feedings held at night due to fluid overload--> tube feeds 12h (2) Respiratory failure Trach in place, continue daily monitoring for secretions. No change in management at this time. Continue with aggressive suctioning multiple times a day per respiratory therapist. Monitor for signs of respiratory distress Thick secretions Duoneb 3ml INH Q6 and Mucomyst 4ml INH Q8H Scopolamine 1 patch TD Q3D JOO Repeat CXR on 05/28/17: linear increased consolidative changes in the right mid- lung zone and left lung base which may represent atelectasis and/or infiltrate. Questionable trace left pleural effusion. moderate venous congestion. cardiomegaly. degenerative changes in the spine and shoulders Repeat CXR 09/28/17: no active disease; no change from previous CXR. (3) UTI Leukocytosis secondary to UTI. Resolved 10/19/17: afebrile, WBC within normal range 10/12: afebrile, WBC within normal range 08/10: WBC 8.2 afebrile Meropenem (started 07/22) - per Dr. Armstrong continue for a total of 2 weeks - Discontinued 08/05/17 ID consult: Dr. Armstrong --> help appreciated (4) Urinary retention 10/12: Condom baker in place; continue to monitor 07/21: NS stopped because tube feeds restarted 07/20: Urine dark in color, monitor, continue NS at 50 ml per hour 07/07/17: Catheter flushed, patient output approx. 500mL within one hour post flush. 06/27/17: Continue bladder massages to aid in voiding. 06/25/17: Patient voids with movement. Continue bladder massages to aid in voiding. 06/23/17: Patient will need to have daily bladder massage to allow for complete voiding 06/17/17: Nursing communication placed in: straight catherization with bladder scan> 100ml 06/08: urinary retention yesterday, was given 40mg lasix iv and patient was able to urinate through condom baker Take note condom cath not always securely in place so Is and Os are approximate as patient does wet bed Ordered- new condom catheter on 05/22/17 Flomax 0.4mg PEG daily Proscar 5mg PEG daily continue Bethanecol 50mg PEG TID- started after persistent retention and found to be effective. monitor I's and O's - I/O: 780/350 Check bladder scan for residual urine three times weekly (5) Hypokalemia 10/12: K+ was 3.3; replaced K+ on 08/10: 4.2 (6) Sacral ulcer, resolved Healed Cont with offloading/cushioning/turning Continue frequent turning, protective ointment and skin checks. (7) History of coronary artery disease s/p cardiac stents on 06/13/15 Cont ASA 81mg via PEG daily Cont Coreg 3.125mg PEG BID Cont Plavix 75 mg PEG daily (8) Seizures Continue Keppra 500mg PEG BID for seizure prophylaxis Monitor for activity (9) Lower extremity edema Improved SCDs in place Pressure ulcer boots on b/l Continue to monitor (10) Prophylactic measure Pepcid 20 mg PEG BID Lovenox 40mg SC daily SCDs and offloading boots continue to turn and reposition q2hrs Continue to monitor medication administrations and clinical presentation weekly labs. vasoline ointment applied to feet prn to prevent hyperkeratosis Please hold feeding from 10pm-6am, placed into nursing communication Vitamin A & D for lips There is no update at this time.
[2017-10-21] MEDS: Saccharomyces Boulardi 250 mg Cap PEG SCH (10:59)
[2017-10-21] MEDS: levETIRAcetam 100 mg/ml (5ml) Oral Syringe PEG SCH ×2 (10:59→17:42)
[2017-10-21] MEDS: Enoxaparin 30 mg Syringe SC SCH (11:00)
[2017-10-22] MEDS: Albuterol-Ipratrop 3 mg / 0.5 (3 ml) UD INH SCH ×4 (01:06→19:15)
[2017-10-22] MEDS: Acetylcysteine 20% Inhal Soln (4ml) INH SCH ×3 (01:06→19:15)
--- NOTE | 2017-10-22 07:22 | CP.PCM.PN ---
Subjective - Date & Time of Evaluation Date of Evaluation: 10/22/17 Time of Evaluation: 07:21 - Subjective Subjective: Medicine Progress Note for Dr. Chavis Patient was seen and examined at bedside in no acute distress. Review of systems not obtained due to anoxic brain injury. Objective - Vital Signs/Intake and Output Vital Signs (last 24 hours): Temp Pulse Resp BP Pulse Ox 98.6 F 95 H 22 127/78 98 10/21/17 23:47 10/21/17 23:47 10/21/17 23:47 10/21/17 23:47 10/21/17 23:47 Intake and Output: 10/22/17 10/22/17 06:59 18:59 Intake Total 1540 Output Total 800 Balance 740 - Medications Medications: Current Medications Acetylcysteine (Acetylcysteine 20%) 4 ml INH RQ8 [facility] [place] Last Admin: 10/22/17 01:06 Dose: 4 ml Albuterol/Ipratropium (Duoneb 3 Mg/0.5 Mg (3 Ml) Ud) 3 ml INH RQ6 [facility] [place] Last Admin: 10/22/17 01:06 Dose: 3 ml Aspirin (Aspirin Chewable) 81 mg PEG DAILY [facility] [place] Last Admin: 10/21/17 11:00 Dose: 81 mg Carvedilol (Coreg) 3.125 mg PEG BID [facility] [place] Last Admin: 10/21/17 17:42 Dose: 3.125 mg Enoxaparin Sodium (Lovenox) 30 mg SC DAILY [facility] [place] Last Admin: 10/21/17 11:00 Dose: 30 mg Famotidine (Pepcid) 20 mg PEG DAILY [facility] [place] Last Admin: 10/21/17 11:00 Dose: 20 mg Finasteride (Proscar) 5 mg PEG DAILY [facility] Last Admin: 10/21/17 10:59 Dose: 5 mg Dextrose/Sodium Chloride (Dextrose 5%/0.45% Ns 1000 Ml) 1,000 mls @ 75 mls/hr IV .[id number] [facility] [place] Last Admin: 09/28/17 15:12 Dose: 75 mls/hr Levetiracetam (Keppra) 500 mg PEG BID [facility] [place] Last Admin: 10/21/17 17:42 Dose: 500 mg Saccharomyces Boulardii (Florastor) 250 mg PEG DAILY [facility] [place] Last Admin: 10/21/17 10:59 Dose: 250 mg Scopolamine (Transderm-Scop) 1 patch TD Q3D [facility] [place] Last Admin: 10/21/17 04:58 Dose: 1 patch Tamsulosin HCl (Flomax) 0.4 mg PEG DAILY [facility] [place] Last Admin: 10/21/17 10:59 Dose: 0.4 mg - Labs Labs: 10/19/17 08:50 10/19/17 08:50 PT 10.6 SECONDS (9.7-12.2) 11/24/15 14:10 INR 1.0 11/24/15 14:10 APTT 25 SECONDS (21-34) 11/24/15 14:10 - Additional Findings Additional findings: - Head Exam Head Exam: ATRAUMATIC, NORMAL INSPECTION - Eye Exam Eye Exam: absent: EOMI, Normal appearance - ENT Exam ENT Exam: Mucous Membranes Moist - Neck Exam Additional comments: Trach in place - Respiratory Exam Respiratory Exam: Rales, Rhonchi, Wheezes. absent: Clear to Ausculation Bilateral (congestion-improving), Respiratory Distress - Cardiovascular Exam Cardiovascular Exam: REGULAR RHYTHM, +S1, +S2 - GI/Abdominal Exam GI & Abdominal Exam: Distended, Soft, Hypoactive Bowel Sounds. absent: Firm, Mass Additional comments: PEG in place - Extremities Exam Extremities Exam: absent: Pedal Edema - Neurological Exam Neurological Exam: Altered. absent: Alert, Awake, Oriented x3 - Psychiatric Exam Psychiatric exam: Flat Affect. absent: Normal Affect, Normal Mood - Skin Skin Exam: Dry, Intact, Normal Color, Warm; no sacral ulcers noted Assessment and Plan (1) Anoxic encephalopathy Status: Chronic (2) Respiratory failure Status: Chronic (3) UTI (urinary tract infection) Status: Resolved (4) Urinary retention Status: Acute (5) Hypokalemia Status: Acute (6) Sacral ulcer Status: Resolved (7) History of coronary artery disease Status: Acute (8) Seizures Status: Acute (9) Lower extremity edema Status: Acute - Assessment and Plan (Free Text) Plan: (1) Anoxic encephalopathy s/p cardiac arrest in 05/2015 no acute changes Pt has non spontaneous movements. Continue tube feeds- goal of 60ml/hr, feedings held at night due to fluid overload--> tube feeds 12h (2) Respiratory failure Trach in place, continue daily monitoring for secretions. No change in management at this time. Continue with aggressive suctioning multiple times a day per respiratory therapist. Monitor for signs of respiratory distress Thick secretions Duoneb 3ml INH Q6 and Mucomyst 4ml INH Q8H Scopolamine 1 patch TD Q3D [facility] Repeat CXR on 05/28/17: linear increased consolidative changes in the right mid- lung zone and left lung base which may represent atelectasis and/or infiltrate. Questionable trace left pleural effusion. moderate venous congestion. cardiomegaly. degenerative changes in the spine and shoulders Repeat CXR 09/28/17: no active disease; no change from previous CXR. (3) UTI Leukocytosis secondary to UTI. Resolved 10/19/17: afebrile, WBC within normal range 10/12: afebrile, WBC within normal range 08/10: WBC 8.2 afebrile Meropenem (started 07/22) - per Dr. Armstrong continue for a total of 2 weeks - Discontinued 08/05/17 ID consult: Dr. Armstrong --> help appreciated (4) Urinary retention 10/12: Condom baker in place; continue to monitor 07/21: NS stopped because tube feeds restarted 07/20: Urine dark in color, monitor, continue NS at 50 ml per hour 07/07/17: Catheter flushed, patient output approx. 500mL within one hour post flush. 06/27/17: Continue bladder massages to aid in voiding. 06/25/17: Patient voids with movement. Continue bladder massages to aid in voiding. 06/23/17: Patient will need to have daily bladder massage to allow for complete voiding 06/17/17: Nursing communication placed in: straight catherization with bladder scan> 100ml 06/08: urinary retention yesterday, was given 40mg lasix iv and patient was able to urinate through condom baker Take note condom cath not always securely in place so Is and Os are approximate as patient does wet bed Ordered- new condom catheter on 05/22/17 Flomax 0.4mg PEG daily Proscar 5mg PEG daily continue Bethanecol 50mg PEG TID- started after persistent retention and found to be effective. monitor I's and O's Check bladder scan for residual urine three times weekly (5) Hypokalemia 10/12: K+ was 3.3; replaced K+ on 08/10: 4.2 (6) Sacral ulcer, resolved Healed Cont with offloading/cushioning/turning Continue frequent turning, protective ointment and skin checks. (7) History of coronary artery disease s/p cardiac stents on 06/13/15 Cont ASA 81mg via PEG daily Cont Coreg 3.125mg PEG BID Cont Plavix 75 mg PEG daily (8) Seizures Continue Keppra 500mg PEG BID for seizure prophylaxis Monitor for activity (9) Lower extremity edema Improved SCDs in place Pressure ulcer boots on b/l Continue to monitor (10) Prophylactic measure Pepcid 20 mg PEG BID Lovenox 40mg SC daily SCDs and offloading boots continue to turn and reposition q2hrs Continue to monitor medication administrations and clinical presentation weekly labs. vasoline ointment applied to feet prn to prevent hyperkeratosis Please hold feeding from 10pm-6am, placed into nursing communication Vitamin A & D for lips There is no update at this time.
[2017-10-22] MEDS: levETIRAcetam 100 mg/ml (5ml) Oral Syringe PEG SCH ×2 (10:36→17:59)
[2017-10-22] MEDS: Saccharomyces Boulardi 250 mg Cap PEG SCH (10:38)
[2017-10-22] MEDS: Enoxaparin 30 mg Syringe SC SCH (10:39)
[2017-10-23] MEDS: Albuterol-Ipratrop 3 mg / 0.5 (3 ml) UD INH SCH ×4 (01:37→19:41)
[2017-10-23] MEDS: Acetylcysteine 20% Inhal Soln (4ml) INH SCH ×3 (01:37→19:41)
[2017-10-23] MEDS: levETIRAcetam 100 mg/ml (5ml) Oral Syringe PEG SCH ×2 (09:33→17:37)
--- NOTE | 2017-10-23 09:34 | CP.PCM.PN ---
Subjective - Date & Time of Evaluation Date of Evaluation: 10/23/17 Time of Evaluation: 09:33 - Subjective Subjective: Medicine Progress Note for Dr. Chavis Patient was seen and examined at bedside in no acute distress. Review of systems not obtained due to anoxic brain injury. Objective - Vital Signs/Intake and Output Vital Signs (last 24 hours): Temp Pulse Resp BP Pulse Ox 97.5 F L 64 20 115/80 98 10/23/17 08:18 10/23/17 08:18 10/23/17 08:18 10/23/17 08:18 10/23/17 08:18 Intake and Output: 10/23/17 10/23/17 06:59 18:59 Intake Total 380 Output Total 350 Balance 30 - Medications Medications: Current Medications Acetylcysteine (Acetylcysteine 20%) 4 ml INH RQ8 [facility] Last Admin: 10/23/17 07:33 Dose: Not Given Albuterol/Ipratropium (Duoneb 3 Mg/0.5 Mg (3 Ml) Ud) 3 ml INH RQ6 [facility] Last Admin: 10/23/17 07:32 Dose: 3 ml Aspirin (Aspirin Chewable) 81 mg PEG DAILY [facility] Last Admin: 10/22/17 10:38 Dose: 81 mg Carvedilol (Coreg) 3.125 mg PEG BID [facility] Last Admin: 10/22/17 17:59 Dose: 3.125 mg Enoxaparin Sodium (Lovenox) 30 mg SC DAILY [facility] Last Admin: 10/22/17 10:39 Dose: 30 mg Famotidine (Pepcid) 20 mg PEG DAILY [facility] Last Admin: 10/22/17 10:37 Dose: 20 mg Finasteride (Proscar) 5 mg PEG DAILY [facility] Last Admin: 10/22/17 10:37 Dose: 5 mg Dextrose/Sodium Chloride (Dextrose 5%/0.45% Ns 1000 Ml) 1,000 mls @ 75 mls/hr IV .[id number] [facility] Last Admin: 09/28/17 15:12 Dose: 75 mls/hr Levetiracetam (Keppra) 500 mg PEG BID [facility] Last Admin: 10/22/17 17:59 Dose: 500 mg Saccharomyces Boulardii (Florastor) 250 mg PEG DAILY [facility] Last Admin: 10/22/17 10:38 Dose: 250 mg Scopolamine (Transderm-Scop) 1 patch TD Q3D [facility] Last Admin: 10/21/17 04:58 Dose: 1 patch Tamsulosin HCl (Flomax) 0.4 mg PEG DAILY [facility] Last Admin: 10/22/17 10:38 Dose: 0.4 mg - Labs Labs: 10/19/17 08:50 10/19/17 08:50 PT 10.6 SECONDS (9.7-12.2) 11/24/15 14:10 INR 1.0 11/24/15 14:10 APTT 25 SECONDS (21-34) 11/24/15 14:10 - Additional Findings Additional findings: - Head Exam Head Exam: ATRAUMATIC, NORMAL INSPECTION - Eye Exam Eye Exam: absent: EOMI, Normal appearance - ENT Exam ENT Exam: Mucous Membranes Moist - Neck Exam Additional comments: Trach in place - Respiratory Exam Respiratory Exam: Rales, Rhonchi, Wheezes. absent: Clear to Ausculation Bilateral (congestion throughout), Respiratory Distress - Cardiovascular Exam Cardiovascular Exam: REGULAR RHYTHM, +S1, +S2 - GI/Abdominal Exam GI & Abdominal Exam: Distended, Soft, Hypoactive Bowel Sounds. absent: Firm, Mass Additional comments: PEG in place - Extremities Exam Extremities Exam: absent: Pedal Edema - Neurological Exam Neurological Exam: Altered. absent: Alert, Awake, Oriented x3 - Psychiatric Exam Psychiatric exam: Flat Affect. absent: Normal Affect, Normal Mood - Skin Skin Exam: Dry, Intact, Normal Color, Warm; no sacral ulcers noted Assessment and Plan (1) Anoxic encephalopathy Status: Chronic (2) Respiratory failure Status: Chronic (3) UTI (urinary tract infection) Status: Resolved (4) Urinary retention Status: Acute (5) Hypokalemia Status: Acute (6) Sacral ulcer Status: Resolved (7) History of coronary artery disease Status: Acute (8) Seizures Status: Acute (9) Lower extremity edema Status: Acute - Assessment and Plan (Free Text) Plan: (1) Anoxic encephalopathy s/p cardiac arrest in 05/2015 no acute changes Pt has non spontaneous movements. Continue tube feeds- goal of 60ml/hr, feedings held at night due to fluid overload--> tube feeds 12h (2) Respiratory failure Trach in place, continue daily monitoring for secretions. No change in management at this time. Continue with aggressive suctioning multiple times a day per respiratory therapist. Monitor for signs of respiratory distress Thick secretions Duoneb 3ml INH Q6 and Mucomyst 4ml INH Q8H Scopolamine 1 patch TD Q3D [facility] Repeat CXR on 05/28/17: linear increased consolidative changes in the right mid- lung zone and left lung base which may represent atelectasis and/or infiltrate. Questionable trace left pleural effusion. moderate venous congestion. cardiomegaly. degenerative changes in the spine and shoulders Repeat CXR 09/28/17: no active disease; no change from previous CXR. (3) UTI Leukocytosis secondary to UTI. Resolved 10/19/17: afebrile, WBC within normal range 10/12: afebrile, WBC within normal range 08/10: WBC 8.2 afebrile Meropenem (started 07/22) - per Dr. Armstrong continue for a total of 2 weeks - Discontinued 08/05/17 ID consult: Dr. Armstrong --> help appreciated (4) Urinary retention 10/12: Condom baker in place; continue to monitor 07/21: NS stopped because tube feeds restarted 07/20: Urine dark in color, monitor, continue NS at 50 ml per hour 07/07/17: Catheter flushed, patient output approx. 500mL within one hour post flush. 06/27/17: Continue bladder massages to aid in voiding. 06/25/17: Patient voids with movement. Continue bladder massages to aid in voiding. 06/23/17: Patient will need to have daily bladder massage to allow for complete voiding 06/17/17: Nursing communication placed in: straight catherization with bladder scan> 100ml 06/08: urinary retention yesterday, was given 40mg lasix iv and patient was able to urinate through condom baker Take note condom cath not always securely in place so Is and Os are approximate as patient does wet bed Ordered- new condom catheter on 05/22/17 Flomax 0.4mg PEG daily Proscar 5mg PEG daily continue Bethanecol 50mg PEG TID- started after persistent retention and found to be effective. monitor I's and O's Check bladder scan for residual urine three times weekly (5) Hypokalemia 10/12: K+ was 3.3; replaced K+ on 08/10: 4.2 (6) Sacral ulcer, resolved Healed Cont with offloading/cushioning/turning Continue frequent turning, protective ointment and skin checks. (7) History of coronary artery disease s/p cardiac stents on 06/13/15 Cont ASA 81mg via PEG daily Cont Coreg 3.125mg PEG BID Cont Plavix 75 mg PEG daily (8) Seizures Continue Keppra 500mg PEG BID for seizure prophylaxis Monitor for activity (9) Lower extremity edema Improved SCDs in place Pressure ulcer boots on b/l Continue to monitor (10) Prophylactic measure Pepcid 20 mg PEG BID Lovenox 40mg SC daily SCDs and offloading boots continue to turn and reposition q2hrs Continue to monitor medication administrations and clinical presentation weekly labs. vasoline ointment applied to feet prn to prevent hyperkeratosis Please hold feeding from 10pm-6am, placed into nursing communication Vitamin A & D for lips There is no update at this time.
[2017-10-23] MEDS: Saccharomyces Boulardi 250 mg Cap PEG SCH (09:35)
[2017-10-23] MEDS: Enoxaparin 30 mg Syringe SC SCH (09:36)
[2017-10-24] MEDS: Acetylcysteine 20% Inhal Soln (4ml) INH SCH ×3 (01:53→19:45)
[2017-10-24] MEDS: Albuterol-Ipratrop 3 mg / 0.5 (3 ml) UD INH SCH ×4 (01:54→19:46)
--- NOTE | 2017-10-24 06:12 | CP.PCM.PN ---
<Joanna Hairston - Last Filed: 10/24/17 06:13> Subjective - Date & Time of Evaluation Date of Evaluation: 10/24/17 Time of Evaluation: 06:09 - Subjective Subjective: Progress Note for Dr. Chavis Patient was seen and examined at bedside in no acute distress. Review of systems not obtained due to anoxic brain injury. Objective - Vital Signs/Intake and Output Vital Signs (last 24 hours): Temp Pulse Resp BP Pulse Ox 98.6 F 96 H 20 129/76 98 10/24/17 00:20 10/24/17 00:20 10/24/17 00:20 10/24/17 00:20 10/24/17 00:20 Intake and Output: 10/23/17 10/24/17 18:59 06:59 Intake Total 1540 920 Output Total 400 600 Balance 1140 320 - Medications Medications: Current Medications Acetylcysteine (Acetylcysteine 20%) 4 ml INH RQ8 [facility] Last Admin: 10/24/17 01:53 Dose: 4 ml Albuterol/Ipratropium (Duoneb 3 Mg/0.5 Mg (3 Ml) Ud) 3 ml INH RQ6 [facility] Last Admin: 10/24/17 01:54 Dose: 3 ml Aspirin (Aspirin Chewable) 81 mg PEG DAILY [facility] Last Admin: 10/23/17 09:36 Dose: 81 mg Carvedilol (Coreg) 3.125 mg PEG BID [facility] Last Admin: 10/23/17 17:37 Dose: 3.125 mg Enoxaparin Sodium (Lovenox) 30 mg SC DAILY [facility] Last Admin: 10/23/17 09:36 Dose: 30 mg Famotidine (Pepcid) 20 mg PEG DAILY [facility] Last Admin: 10/23/17 09:34 Dose: 20 mg Finasteride (Proscar) 5 mg PEG DAILY [facility] Last Admin: 10/23/17 09:35 Dose: 5 mg Dextrose/Sodium Chloride (Dextrose 5%/0.45% Ns 1000 Ml) 1,000 mls @ 75 mls/hr IV .[id number] [facility] Last Admin: 09/28/17 15:12 Dose: 75 mls/hr Levetiracetam (Keppra) 500 mg PEG BID [facility] Last Admin: 10/23/17 17:37 Dose: 500 mg Saccharomyces Boulardii (Florastor) 250 mg PEG DAILY [facility] Last Admin: 10/23/17 09:35 Dose: 250 mg Scopolamine (Transderm-Scop) 1 patch TD Q3D [facility] Last Admin: 10/21/17 04:58 Dose: 1 patch Tamsulosin HCl (Flomax) 0.4 mg PEG DAILY [facility] Last Admin: 10/23/17 09:35 Dose: 0.4 mg - Labs Labs: 10/19/17 08:50 10/19/17 08:50 PT 10.6 SECONDS (9.7-12.2) 11/24/15 14:10 INR 1.0 11/24/15 14:10 APTT 25 SECONDS (21-34) 11/24/15 14:10 - Constitutional Appears: Non-toxic, Chronically Ill - Head Exam Head Exam: NORMAL INSPECTION - ENT Exam ENT Exam: Mucous Membranes Moist - Respiratory Exam Respiratory Exam: NORMAL BREATHING PATTERN. absent: Accessory Muscle Use - Cardiovascular Exam Cardiovascular Exam: REGULAR RHYTHM, +S1, +S2 - GI/Abdominal Exam GI & Abdominal Exam: Soft. absent: Tenderness Additional comments: PEG tube in place - Back Exam Back Exam: absent: Full ROM - Skin Skin Exam: Dry, Intact, Pallor Assessment and Plan - Assessment and Plan (Free Text) Assessment: (1) Anoxic encephalopathy s/p cardiac arrest in 05/2015 no acute changes Pt has non spontaneous movements. Continue tube feeds- goal of 60ml/hr, feedings held at night due to fluid overload--> tube feeds 12h (2) Respiratory failure Trach in place, continue daily monitoring for secretions. No change in management at this time. Continue with aggressive suctioning multiple times a day per respiratory therapist. Monitor for signs of respiratory distress Thick secretions Duoneb 3ml INH Q6 and Mucomyst 4ml INH Q8H Scopolamine 1 patch TD Q3D [facility] Repeat CXR on 05/28/17: linear increased consolidative changes in the right mid- lung zone and left lung base which may represent atelectasis and/or infiltrate. Questionable trace left pleural effusion. moderate venous congestion. cardiomegaly. degenerative changes in the spine and shoulders Repeat CXR 09/28/17: no active disease; no change from previous CXR. (3) UTI Leukocytosis secondary to UTI. Resolved 10/19/17: afebrile, WBC within normal range 10/12: afebrile, WBC within normal range 08/10: WBC 8.2 afebrile Meropenem (started 07/22) - per Dr. Armstrong continue for a total of 2 weeks - Discontinued 08/05/17 ID consult: Dr. Armstrong --> help appreciated (4) Urinary retention 10/12: Condom baker in place; continue to monitor 07/21: NS stopped because tube feeds restarted 07/20: Urine dark in color, monitor, continue NS at 50 ml per hour 07/07/17: Catheter flushed, patient output approx. 500mL within one hour post flush. 06/27/17: Continue bladder massages to aid in voiding. 06/25/17: Patient voids with movement. Continue bladder massages to aid in voiding. 06/23/17: Patient will need to have daily bladder massage to allow for complete voiding 06/17/17: Nursing communication placed in: straight catherization with bladder scan> 100ml 06/08: urinary retention yesterday, was given 40mg lasix iv and patient was able to urinate through condom baker Take note condom cath not always securely in place so Is and Os are approximate as patient does wet bed Ordered- new condom catheter on 05/22/17 Flomax 0.4mg PEG daily Proscar 5mg PEG daily continue Bethanecol 50mg PEG TID- started after persistent retention and found to be effective. monitor I's and O's Check bladder scan for residual urine three times weekly (5) Hypokalemia 10/12: K+ was 3.3; replaced K+ on 08/10: 4.2 (6) Sacral ulcer, resolved Healed Cont with offloading/cushioning/turning Continue frequent turning, protective ointment and skin checks. (7) History of coronary artery disease s/p cardiac stents on 06/13/15 Cont ASA 81mg via PEG daily Cont Coreg 3.125mg PEG BID Cont Plavix 75 mg PEG daily (8) Seizures Continue Keppra 500mg PEG BID for seizure prophylaxis Monitor for activity (9) Lower extremity edema Improved SCDs in place Pressure ulcer boots on b/l Continue to monitor (10) Prophylactic measure Pepcid 20 mg PEG BID Lovenox 40mg SC daily SCDs and offloading boots continue to turn and reposition q2hrs Continue to monitor medication administrations and clinical presentation weekly labs. vasoline ointment applied to feet prn to prevent hyperkeratosis Please hold feeding from 10pm-6am, placed into nursing communication Vitamin A & D for lips There is no update at this time. <Amandeep Chavis H - Last Filed: 10/24/17 12:30> Objective - Vital Signs/Intake and Output Vital Signs (last 24 hours): Temp Pulse Resp BP Pulse Ox 98.6 F 96 H 20 129/76 98 10/24/17 00:20 10/24/17 00:20 10/24/17 00:20 10/24/17 00:20 10/24/17 00:20 Intake and Output: 10/24/17 10/24/17 06:59 18:59 Intake Total 1540 Output Total 600 Balance 940 - Medications Medications: Current Medications Acetylcysteine (Acetylcysteine 20%) 4 ml INH RQ8 [facility] Last Admin: 10/24/17 08:00 Dose: 4 ml Albuterol/Ipratropium (Duoneb 3 Mg/0.5 Mg (3 Ml) Ud) 3 ml INH RQ6 [facility] Last Admin: 10/24/17 08:00 Dose: 3 ml Aspirin (Aspirin Chewable) 81 mg PEG DAILY [facility] Last Admin: 10/24/17 10:50 Dose: 81 mg Carvedilol (Coreg) 3.125 mg PEG BID [facility] Last Admin: 10/24/17 10:50 Dose: 3.125 mg Enoxaparin Sodium (Lovenox) 30 mg SC DAILY [facility] Last Admin: 10/24/17 10:50 Dose: 30 mg Famotidine (Pepcid) 20 mg PEG DAILY [facility] Last Admin: 10/24/17 10:50 Dose: 20 mg Finasteride (Proscar) 5 mg PEG DAILY [facility] Last Admin: 10/24/17 10:50 Dose: 5 mg Dextrose/Sodium Chloride (Dextrose 5%/0.45% Ns 1000 Ml) 1,000 mls @ 75 mls/hr IV .[id number] [facility] Last Admin: 09/28/17 15:12 Dose: 75 mls/hr Levetiracetam (Keppra) 500 mg PEG BID [facility] Last Admin: 10/24/17 10:50 Dose: 500 mg Saccharomyces Boulardii (Florastor) 250 mg PEG DAILY [facility] Last Admin: 10/24/17 10:50 Dose: 250 mg Scopolamine (Transderm-Scop) 1 patch TD Q3D [facility] Last Admin: 10/21/17 04:58 Dose: 1 patch Tamsulosin HCl (Flomax) 0.4 mg PEG DAILY [facility] Last Admin: 10/24/17 10:50 Dose: 0.4 mg - Labs Labs: 10/19/17 08:50 10/19/17 08:50 PT 10.6 SECONDS (9.7-12.2) 11/24/15 14:10 INR 1.0 11/24/15 14:10 APTT 25 SECONDS (21-34) 11/24/15 14:10 Assessment and Plan (1) Prophylactic measure Status: Acute (2) Anoxic encephalopathy Status: Chronic (3) STEMI (ST elevation myocardial infarction) Status: Acute (4) Cardiac arrest Status: Acute (5) Seizures Status: Acute (6) Respiratory failure Status: Chronic Attending/Attestation - Attestation I have personally seen and examined this patient.: Yes I have fully participated in the care of the patient.: Yes I have reviewed all pertinent clinical information, including history, physical exam and plan: Yes Notes (Text): 10/24/17 12:30 Medical attending: Situation is not changed from before Amandeep Chavis
[2017-10-24] MEDS: levETIRAcetam 100 mg/ml (5ml) Oral Syringe PEG SCH ×2 (10:50→17:51)
[2017-10-24] MEDS: Enoxaparin 30 mg Syringe SC SCH (10:50)
[2017-10-24] MEDS: Saccharomyces Boulardi 250 mg Cap PEG SCH (10:50)
[2017-10-25] MEDS: Acetylcysteine 20% Inhal Soln (4ml) INH SCH ×3 (02:01→19:41)
[2017-10-25] MEDS: Albuterol-Ipratrop 3 mg / 0.5 (3 ml) UD INH SCH ×4 (02:01→19:41)
--- NOTE | 2017-10-25 06:41 | CP.PCM.PN ---
<Joanna Hairston - Last Filed: 10/25/17 06:41> Subjective - Date & Time of Evaluation Date of Evaluation: 10/25/17 Time of Evaluation: 06:39 - Subjective Subjective: Progress Note for Dr. Chavis Patient was seen and examined at bedside in no acute distress. Patient does not respond to verbal command. Review of systems not obtained due to anoxic brain injury. Objective - Vital Signs/Intake and Output Vital Signs (last 24 hours): Temp Pulse Resp BP Pulse Ox 98 F 72 18 105/71 98 10/25/17 00:40 10/25/17 00:40 10/25/17 00:40 10/25/17 00:40 10/25/17 00:40 Intake and Output: 10/24/17 10/25/17 18:59 06:59 Intake Total 620 340 Output Total 300 Balance 320 340 - Medications Medications: Current Medications Acetylcysteine (Acetylcysteine 20%) 4 ml INH RQ8 [facility] Last Admin: 10/25/17 02:01 Dose: 4 ml Albuterol/Ipratropium (Duoneb 3 Mg/0.5 Mg (3 Ml) Ud) 3 ml INH RQ6 [facility] Last Admin: 10/25/17 02:01 Dose: 3 ml Aspirin (Aspirin Chewable) 81 mg PEG DAILY [facility] Last Admin: 10/24/17 10:50 Dose: 81 mg Carvedilol (Coreg) 3.125 mg PEG BID [facility] Last Admin: 10/24/17 17:51 Dose: 3.125 mg Enoxaparin Sodium (Lovenox) 30 mg SC DAILY [facility] Last Admin: 10/24/17 10:50 Dose: 30 mg Famotidine (Pepcid) 20 mg PEG DAILY [facility] Last Admin: 10/24/17 10:50 Dose: 20 mg Finasteride (Proscar) 5 mg PEG DAILY [facility] Last Admin: 10/24/17 10:50 Dose: 5 mg Dextrose/Sodium Chloride (Dextrose 5%/0.45% Ns 1000 Ml) 1,000 mls @ 75 mls/hr IV .[id number] [facility] Last Admin: 09/28/17 15:12 Dose: 75 mls/hr Levetiracetam (Keppra) 500 mg PEG BID [facility] Last Admin: 10/24/17 17:51 Dose: 500 mg Saccharomyces Boulardii (Florastor) 250 mg PEG DAILY [facility] Last Admin: 10/24/17 10:50 Dose: 250 mg Scopolamine (Transderm-Scop) 1 patch TD Q3D [facility] Last Admin: 10/24/17 04:27 Dose: 1 patch Tamsulosin HCl (Flomax) 0.4 mg PEG DAILY [facility] Last Admin: 10/24/17 10:50 Dose: 0.4 mg - Labs Labs: 10/19/17 08:50 10/19/17 08:50 PT 10.6 SECONDS (9.7-12.2) 11/24/15 14:10 INR 1.0 11/24/15 14:10 APTT 25 SECONDS (21-34) 11/24/15 14:10 - Constitutional Appears: Non-toxic, Chronically Ill - Head Exam Head Exam: NORMAL INSPECTION - Eye Exam Eye Exam: EOMI, Normal appearance - ENT Exam ENT Exam: Mucous Membranes Moist - Respiratory Exam Respiratory Exam: Decreased Breath Sounds. absent: Accessory Muscle Use Additional comments: trach is in place with trach collar. no signs of erythema, induration, drainage from trach insertion site - Cardiovascular Exam Cardiovascular Exam: REGULAR RHYTHM, +S2, +S4. absent: Bradycardia, Tachycardia - Neurological Exam Neurological Exam: Awake - Psychiatric Exam Psychiatric exam: Flat Affect - Skin Skin Exam: Dry, Intact, Pallor Assessment and Plan - Assessment and Plan (Free Text) Assessment: (1) Anoxic encephalopathy s/p cardiac arrest in 05/2015 no acute changes Pt has non spontaneous movements. Continue tube feeds- goal of 60ml/hr, feedings held at night due to fluid overload--> tube feeds 12h (2) Respiratory failure Trach in place, continue daily monitoring for secretions. No change in management at this time. Continue with aggressive suctioning multiple times a day per respiratory therapist. Monitor for signs of respiratory distress Thick secretions Duoneb 3ml INH Q6 and Mucomyst 4ml INH Q8H Scopolamine 1 patch TD Q3D [facility] Repeat CXR on 05/28/17: linear increased consolidative changes in the right mid- lung zone and left lung base which may represent atelectasis and/or infiltrate. Questionable trace left pleural effusion. moderate venous congestion. cardiomegaly. degenerative changes in the spine and shoulders Repeat CXR 09/28/17: no active disease; no change from previous CXR. (3) UTI Leukocytosis secondary to UTI. Resolved 10/19/17: afebrile, WBC within normal range 10/12: afebrile, WBC within normal range 08/10: WBC 8.2 afebrile Meropenem (started 07/22) - per Dr. Armstrong continue for a total of 2 weeks - Discontinued 08/05/17 ID consult: Dr. Armstrong --> help appreciated (4) Urinary retention 10/12: Condom baker in place; continue to monitor 07/21: NS stopped because tube feeds restarted 07/20: Urine dark in color, monitor, continue NS at 50 ml per hour 07/07/17: Catheter flushed, patient output approx. 500mL within one hour post flush. 06/27/17: Continue bladder massages to aid in voiding. 06/25/17: Patient voids with movement. Continue bladder massages to aid in voiding. 06/23/17: Patient will need to have daily bladder massage to allow for complete voiding 06/17/17: Nursing communication placed in: straight catherization with bladder scan> 100ml 06/08: urinary retention yesterday, was given 40mg lasix iv and patient was able to urinate through condom baker Take note condom cath not always securely in place so Is and Os are approximate as patient does wet bed Ordered- new condom catheter on 05/22/17 Flomax 0.4mg PEG daily Proscar 5mg PEG daily continue Bethanecol 50mg PEG TID- started after persistent retention and found to be effective. monitor I's and O's Check bladder scan for residual urine three times weekly (5) Hypokalemia 10/12: K+ was 3.3; replaced K+ on 08/10: 4.2 (6) Sacral ulcer, resolved Healed Cont with offloading/cushioning/turning Continue frequent turning, protective ointment and skin checks. (7) History of coronary artery disease s/p cardiac stents on 06/13/15 Cont ASA 81mg via PEG daily Cont Coreg 3.125mg PEG BID Cont Plavix 75 mg PEG daily (8) Seizures Continue Keppra 500mg PEG BID for seizure prophylaxis Monitor for activity (9) Lower extremity edema Improved SCDs in place Pressure ulcer boots on b/l Continue to monitor (10) Prophylactic measure Pepcid 20 mg PEG BID Lovenox 40mg SC daily SCDs and offloading boots continue to turn and reposition q2hrs Continue to monitor medication administrations and clinical presentation weekly labs. vasoline ointment applied to feet prn to prevent hyperkeratosis Please hold feeding from 10pm-6am, placed into nursing communication Vitamin A & D for lips 09/29 midline was removed. There is no need for IV access at this time There is no update at this time. <Amandeep Chavis H - Last Filed: 10/25/17 10:25> Objective - Vital Signs/Intake and Output Vital Signs (last 24 hours): Temp Pulse Resp BP Pulse Ox 97.9 F 79 20 120/30 L 99 10/25/17 08:03 10/25/17 08:03 10/25/17 08:03 10/25/17 08:03 10/25/17 08:03 Intake and Output: 10/25/17 10/25/17 06:59 18:59 Intake Total 720 Output Total 280 Balance 440 - Medications Medications: Current Medications Acetylcysteine (Acetylcysteine 20%) 4 ml INH RQ8 [facility] Last Admin: 10/25/17 07:39 Dose: 4 ml Albuterol/Ipratropium (Duoneb 3 Mg/0.5 Mg (3 Ml) Ud) 3 ml INH RQ6 [facility] Last Admin: 10/25/17 07:39 Dose: 3 ml Aspirin (Aspirin Chewable) 81 mg PEG DAILY [facility] Last Admin: 10/24/17 10:50 Dose: 81 mg Carvedilol (Coreg) 3.125 mg PEG BID [facility] Last Admin: 10/24/17 17:51 Dose: 3.125 mg Enoxaparin Sodium (Lovenox) 30 mg SC DAILY [facility] Last Admin: 10/24/17 10:50 Dose: 30 mg Famotidine (Pepcid) 20 mg PEG DAILY [facility] Last Admin: 10/24/17 10:50 Dose: 20 mg Finasteride (Proscar) 5 mg PEG DAILY [facility] Last Admin: 10/24/17 10:50 Dose: 5 mg Dextrose/Sodium Chloride (Dextrose 5%/0.45% Ns 1000 Ml) 1,000 mls @ 75 mls/hr IV .[id number] [facility] Last Admin: 09/28/17 15:12 Dose: 75 mls/hr Levetiracetam (Keppra) 500 mg PEG BID [facility] Last Admin: 10/24/17 17:51 Dose: 500 mg Saccharomyces Boulardii (Florastor) 250 mg PEG DAILY [facility] Last Admin: 10/24/17 10:50 Dose: 250 mg Scopolamine (Transderm-Scop) 1 patch TD Q3D [facility] Last Admin: 10/24/17 04:27 Dose: 1 patch Tamsulosin HCl (Flomax) 0.4 mg PEG DAILY [facility] Last Admin: 10/24/17 10:50 Dose: 0.4 mg - Labs Labs: 10/19/17 08:50 10/19/17 08:50 PT 10.6 SECONDS (9.7-12.2) 11/24/15 14:10 INR 1.0 11/24/15 14:10 APTT 25 SECONDS (21-34) 11/24/15 14:10 Assessment and Plan (1) Prophylactic measure Status: Acute (2) Anoxic encephalopathy Status: Chronic (3) STEMI (ST elevation myocardial infarction) Status: Acute (4) Cardiac arrest Status: Acute (5) Seizures Status: Acute (6) Respiratory failure Status: Chronic Attending/Attestation - Attestation I have personally seen and examined this patient.: Yes I have fully participated in the care of the patient.: Yes I have reviewed all pertinent clinical information, including history, physical exam and plan: Yes Notes (Text): 10/25/17 10:24 Medical attending: Patient was seen and examined by me Agree with the above note by the resident Unfourtunately there is no change in the situation Amandeep Chavis
[2017-10-25] MEDS: levETIRAcetam 100 mg/ml (5ml) Oral Syringe PEG SCH ×2 (11:00→17:44)
[2017-10-25] MEDS: Enoxaparin 30 mg Syringe SC SCH (11:00)
[2017-10-25] MEDS: Saccharomyces Boulardi 250 mg Cap PEG SCH (11:00)
[2017-10-26] MEDS: Albuterol-Ipratrop 3 mg / 0.5 (3 ml) UD INH SCH ×4 (01:43→20:27)
[2017-10-26] MEDS: Acetylcysteine 20% Inhal Soln (4ml) INH SCH ×3 (01:43→20:27)
--- NOTE | 2017-10-26 07:00 | CP.PCM.PN ---
<Vesna Turpin - Last Filed: 10/26/17 10:11> Subjective - Date & Time of Evaluation Date of Evaluation: 10/26/17 Time of Evaluation: 07:00 - Subjective Subjective: Medicine Progress Note for Dr. Chavis Patient was seen and examined at bedside in no acute distress. Review of systems not obtained due to anoxic brain injury. Objective - Vital Signs/Intake and Output Vital Signs (last 24 hours): Temp Pulse Resp BP Pulse Ox 98.5 F 82 20 100/66 100 10/26/17 00:00 10/26/17 00:00 10/26/17 00:00 10/26/17 00:00 10/26/17 00:00 Intake and Output: 10/25/17 10/26/17 18:59 06:59 Intake Total 620 620 Output Total 300 600 Balance 320 20 - Medications Medications: Current Medications Acetylcysteine (Acetylcysteine 20%) 4 ml INH RQ8 [facility] Last Admin: 10/26/17 01:43 Dose: Not Given Albuterol/Ipratropium (Duoneb 3 Mg/0.5 Mg (3 Ml) Ud) 3 ml INH RQ6 [facility] Last Admin: 10/26/17 01:43 Dose: 3 ml Aspirin (Aspirin Chewable) 81 mg PEG DAILY [facility] Last Admin: 10/25/17 11:00 Dose: 81 mg Carvedilol (Coreg) 3.125 mg PEG BID [facility] Last Admin: 10/25/17 17:44 Dose: 3.125 mg Famotidine (Pepcid) 20 mg PEG DAILY [facility] Last Admin: 10/25/17 11:00 Dose: 20 mg Finasteride (Proscar) 5 mg PEG DAILY [facility] Last Admin: 10/25/17 11:00 Dose: 5 mg Dextrose/Sodium Chloride (Dextrose 5%/0.45% Ns 1000 Ml) 1,000 mls @ 75 mls/hr IV .[id number] [facility] Last Admin: 09/28/17 15:12 Dose: 75 mls/hr Levetiracetam (Keppra) 500 mg PEG BID [facility] Last Admin: 10/25/17 17:44 Dose: 500 mg Saccharomyces Boulardii (Florastor) 250 mg PEG DAILY [facility] Last Admin: 10/25/17 11:00 Dose: 250 mg Scopolamine (Transderm-Scop) 1 patch TD Q3D [facility] Last Admin: 10/24/17 04:27 Dose: 1 patch Tamsulosin HCl (Flomax) 0.4 mg PEG DAILY [facility] Last Admin: 10/25/17 11:00 Dose: 0.4 mg - Labs Labs: 10/19/17 08:50 10/19/17 08:50 PT 10.6 SECONDS (9.7-12.2) 11/24/15 14:10 INR 1.0 11/24/15 14:10 APTT 25 SECONDS (21-34) 11/24/15 14:10 - Additional Findings Additional findings: - Head Exam Head Exam: ATRAUMATIC, NORMAL INSPECTION - Eye Exam Eye Exam: absent: EOMI, Normal appearance - ENT Exam ENT Exam: Mucous Membranes Moist - Neck Exam Additional comments: Trach in place - Respiratory Exam Respiratory Exam: Rales, Rhonchi, Wheezes. absent: Clear to Ausculation Bilateral (congestion- improved), Respiratory Distress - Cardiovascular Exam Cardiovascular Exam: REGULAR RHYTHM, +S1, +S2 - GI/Abdominal Exam GI & Abdominal Exam: Distended, Soft, Hypoactive Bowel Sounds. absent: Firm, Mass Additional comments: PEG in place - Extremities Exam Extremities Exam: absent: Pedal Edema - Neurological Exam Neurological Exam: Altered. absent: Alert, Awake, Oriented x3 - Psychiatric Exam Psychiatric exam: Flat Affect. absent: Normal Affect, Normal Mood - Skin Skin Exam: Dry, Intact, Normal Color, Warm; no sacral ulcers noted Assessment and Plan (1) Anoxic encephalopathy Status: Chronic (2) Respiratory failure Status: Chronic (3) UTI (urinary tract infection) Status: Resolved (4) Urinary retention Status: Acute (5) Hypokalemia Status: Acute (6) Sacral ulcer Status: Resolved (7) History of coronary artery disease Status: Acute (8) Seizures Status: Acute (9) Lower extremity edema Status: Acute - Assessment and Plan (Free Text) Plan: (1) Anoxic encephalopathy s/p cardiac arrest in 05/2015 no acute changes Pt has non spontaneous movements. Continue tube feeds- goal of 60ml/hr, feedings held at night due to fluid overload--> tube feeds 12h (2) Respiratory failure Trach in place, continue daily monitoring for secretions. No change in management at this time. Continue with aggressive suctioning multiple times a day per respiratory therapist. Monitor for signs of respiratory distress Thick secretions Duoneb 3ml INH Q6 and Mucomyst 4ml INH Q8H Scopolamine 1 patch TD Q3D [facility] Repeat CXR on 05/28/17: linear increased consolidative changes in the right mid- lung zone and left lung base which may represent atelectasis and/or infiltrate. Questionable trace left pleural effusion. moderate venous congestion. cardiomegaly. degenerative changes in the spine and shoulders Repeat CXR 09/28/17: no active disease; no change from previous CXR. (3) UTI Leukocytosis secondary to UTI. Resolved 10/19/17: afebrile, WBC within normal range 10/12: afebrile, WBC within normal range 08/10: WBC 8.2 afebrile Meropenem (started 07/22) - per Dr. Armstrong continue for a total of 2 weeks - Discontinued 08/05/17 ID consult: Dr. Armstrong --> help appreciated (4) Urinary retention 10/12: Condom baker in place; continue to monitor 07/21: NS stopped because tube feeds restarted 07/20: Urine dark in color, monitor, continue NS at 50 ml per hour 07/07/17: Catheter flushed, patient output approx. 500mL within one hour post flush. 06/27/17: Continue bladder massages to aid in voiding. 06/25/17: Patient voids with movement. Continue bladder massages to aid in voiding. 06/23/17: Patient will need to have daily bladder massage to allow for complete voiding 06/17/17: Nursing communication placed in: straight catherization with bladder scan> 100ml 06/08: urinary retention yesterday, was given 40mg lasix iv and patient was able to urinate through condom baker Take note condom cath not always securely in place so Is and Os are approximate as patient does wet bed Ordered- new condom catheter on 05/22/17 Flomax 0.4mg PEG daily Proscar 5mg PEG daily continue Bethanecol 50mg PEG TID- started after persistent retention and found to be effective. monitor I's and O's Check bladder scan for residual urine three times weekly (5) Hypokalemia 10/12: K+ was 3.3; replaced K+ on 08/10: 4.2 (6) Sacral ulcer, resolved Healed Cont with offloading/cushioning/turning Continue frequent turning, protective ointment and skin checks. (7) History of coronary artery disease s/p cardiac stents on 06/13/15 Cont ASA 81mg via PEG daily Cont Coreg 3.125mg PEG BID Cont Plavix 75 mg PEG daily (8) Seizures Continue Keppra 500mg PEG BID for seizure prophylaxis Monitor for activity (9) Lower extremity edema Improved SCDs in place Pressure ulcer boots on b/l Continue to monitor (10) Prophylactic measure Pepcid 20 mg PEG BID Lovenox 40mg SC daily SCDs and offloading boots continue to turn and reposition q2hrs Continue to monitor medication administrations and clinical presentation weekly labs. vasoline ointment applied to feet prn to prevent hyperkeratosis Please hold feeding from 10pm-6am, placed into nursing communication Vitamin A & D for lips There is no update at this time. <Jeison Moore - Last Filed: 10/26/17 17:19> Objective - Vital Signs/Intake and Output Vital Signs (last 24 hours): Temp Pulse Resp BP Pulse Ox 98.7 F 84 20 106/68 100 10/26/17 16:00 10/26/17 16:00 10/26/17 16:00 10/26/17 16:00 10/26/17 16:00 Intake and Output: 10/26/17 10/26/17 06:59 18:59 Intake Total 1000 820 Output Total 950 300 Balance 50 520 - Medications Medications: Current Medications Acetylcysteine (Acetylcysteine 20%) 4 ml INH RQ8 [facility] Last Admin: 10/26/17 07:36 Dose: Not Given Albuterol/Ipratropium (Duoneb 3 Mg/0.5 Mg (3 Ml) Ud) 3 ml INH RQ6 [facility] Last Admin: 10/26/17 13:41 Dose: 3 ml Aspirin (Aspirin Chewable) 81 mg PEG DAILY [facility] Last Admin: 10/26/17 09:21 Dose: 81 mg Carvedilol (Coreg) 3.125 mg PEG BID [facility] Last Admin: 10/26/17 09:21 Dose: 3.125 mg Famotidine (Pepcid) 20 mg PEG DAILY [facility] Last Admin: 10/26/17 09:22 Dose: 20 mg Finasteride (Proscar) 5 mg PEG DAILY [facility] Last Admin: 10/26/17 09:22 Dose: 5 mg Dextrose/Sodium Chloride (Dextrose 5%/0.45% Ns 1000 Ml) 1,000 mls @ 75 mls/hr IV .[id number] [facility] Last Admin: 09/28/17 15:12 Dose: 75 mls/hr Levetiracetam (Keppra) 500 mg PEG BID [facility] Last Admin: 10/26/17 09:21 Dose: 500 mg Saccharomyces Boulardii (Florastor) 250 mg PEG DAILY [facility] Last Admin: 10/26/17 09:21 Dose: 250 mg Scopolamine (Transderm-Scop) 1 patch TD Q3D [facility] Last Admin: 10/24/17 04:27 Dose: 1 patch Tamsulosin HCl (Flomax) 0.4 mg PEG DAILY [facility] Last Admin: 10/26/17 09:21 Dose: 0.4 mg - Labs Labs: 10/26/17 07:15 10/26/17 07:15 PT 10.6 SECONDS (9.7-12.2) 11/24/15 14:10 INR 1.0 11/24/15 14:10 APTT 25 SECONDS (21-34) 11/24/15 14:10 Attending/Attestation - Attestation I have personally seen and examined this patient.: Yes I have fully participated in the care of the patient.: Yes I have reviewed all pertinent clinical information, including history, physical exam and plan: Yes
[2017-10-26 07:52] LABS: BASO # 0.1 K/uL (0.0-0.2); BASO % 0.4 % (0.0-2.0); EOS # 0.6 K/uL (0.0-0.7); EOS % 4.3 % (0.0-4.0); LYMPH % 22.7 % (20.0-40.0); MEAN CELL VOLUME 90.3 fL (80.0-94.0); MEAN CORPUSCULAR HEMOGLOBIN 29.3 pg (27.0-31.0); MEAN CORPUSCULAR HGB CONC 32.4 g/dL (33.0-37.0); MEAN PLATELET VOLUME 9.6 fL (7.2-11.7); MONO % 7.3 % (0.0-10.0); NEUT # 8.7 K/uL (1.8-7.0); NEUT % 65.3 % (50.0-75.0); NRBC % 0.1 % (0.0-2.0); RBC 4.33 Mil/uL (4.40-5.90); RED CELL DISTRIBUTION WIDTH 15.4 % (11.5-14.5); WHITE BLOOD COUNT 13.3 K/uL (4.8-10.8)
[2017-10-26 07:53] LABS: HEMOGLOBIN 12.7 g/dL (12.0-18.0)
[2017-10-26 08:27] LABS: ALB/GLOB RATIO 0.8 (1.0-2.1); ALBUMIN 3.7 g/dL (3.5-5.0); ALT/SGPT 60 U/L (21-72); AST/SGOT 32 U/L (17-59); BLOOD UREA NITROGEN 10 mg/dL (9-20); CALCIUM 8.3 mg/dl (8.6-10.4); GFR NON-AFRICAN AMERICAN > 60
[2017-10-26] MEDS: levETIRAcetam 100 mg/ml (5ml) Oral Syringe PEG SCH ×2 (09:21→17:34)
[2017-10-26] MEDS: Saccharomyces Boulardi 250 mg Cap PEG SCH (09:21)
[2017-10-27] MEDS: Acetylcysteine 20% Inhal Soln (4ml) INH SCH ×3 (01:07→21:28)
[2017-10-27] MEDS: Albuterol-Ipratrop 3 mg / 0.5 (3 ml) UD INH SCH ×4 (01:07→21:28)
--- NOTE | 2017-10-27 06:57 | CP.PCM.PN ---
<Vesna Turpin - Last Filed: 10/27/17 11:11> Subjective - Date & Time of Evaluation Date of Evaluation: 10/27/17 Time of Evaluation: 06:55 - Subjective Subjective: Medicine Progress Note for Dr. Moore Patient was seen and examined at bedside in no acute distress. Review of systems not obtained due to anoxic brain injury. Objective - Vital Signs/Intake and Output Vital Signs (last 24 hours): Temp Pulse Resp BP Pulse Ox 97.6 F 93 H 20 134/78 98 10/26/17 23:32 10/26/17 23:32 10/26/17 23:32 10/26/17 23:32 10/26/17 23:32 Intake and Output: 10/26/17 10/27/17 18:59 06:59 Intake Total 820 920 Output Total 300 Balance 520 920 - Medications Medications: Current Medications Acetylcysteine (Acetylcysteine 20%) 4 ml INH RQ8 [facility] Last Admin: 10/27/17 01:07 Dose: Not Given Albuterol/Ipratropium (Duoneb 3 Mg/0.5 Mg (3 Ml) Ud) 3 ml INH RQ6 [facility] Last Admin: 10/27/17 01:07 Dose: 3 ml Aspirin (Aspirin Chewable) 81 mg PEG DAILY [facility] Last Admin: 10/26/17 09:21 Dose: 81 mg Carvedilol (Coreg) 3.125 mg PEG BID [facility] Last Admin: 10/26/17 17:37 Dose: 3.125 mg Famotidine (Pepcid) 20 mg PEG DAILY [facility] Last Admin: 10/26/17 09:22 Dose: 20 mg Finasteride (Proscar) 5 mg PEG DAILY [facility] Last Admin: 10/26/17 09:22 Dose: 5 mg Dextrose/Sodium Chloride (Dextrose 5%/0.45% Ns 1000 Ml) 1,000 mls @ 75 mls/hr IV .[id number] [facility] Last Admin: 09/28/17 15:12 Dose: 75 mls/hr Levetiracetam (Keppra) 500 mg PEG BID [facility] Last Admin: 10/26/17 17:34 Dose: 500 mg Saccharomyces Boulardii (Florastor) 250 mg PEG DAILY [facility] Last Admin: 10/26/17 09:21 Dose: 250 mg Scopolamine (Transderm-Scop) 1 patch TD Q3D [facility] Last Admin: 10/24/17 04:27 Dose: 1 patch Tamsulosin HCl (Flomax) 0.4 mg PEG DAILY [facility] Last Admin: 10/26/17 09:21 Dose: 0.4 mg - Labs Labs: 10/26/17 07:15 10/26/17 07:15 PT 10.6 SECONDS (9.7-12.2) 11/24/15 14:10 INR 1.0 11/24/15 14:10 APTT 25 SECONDS (21-34) 11/24/15 14:10 - Additional Findings Additional findings: - Head Exam Head Exam: ATRAUMATIC, NORMAL INSPECTION - Eye Exam Eye Exam: absent: EOMI, Normal appearance - ENT Exam ENT Exam: Mucous Membranes Moist - Neck Exam Additional comments: Trach in place - Respiratory Exam Respiratory Exam: Rales, Rhonchi, Wheezes. absent: Clear to Ausculation Bilateral (congestion- improved), Respiratory Distress - Cardiovascular Exam Cardiovascular Exam: REGULAR RHYTHM, +S1, +S2 - GI/Abdominal Exam GI & Abdominal Exam: Distended, Soft, Hypoactive Bowel Sounds. absent: Firm, Mass Additional comments: PEG in place - Extremities Exam Extremities Exam: absent: Pedal Edema - Neurological Exam Neurological Exam: Altered. absent: Alert, Awake, Oriented x3 - Psychiatric Exam Psychiatric exam: Flat Affect. absent: Normal Affect, Normal Mood - Skin Skin Exam: Dry, Intact, Normal Color, Warm; no sacral ulcers noted Assessment and Plan (1) Anoxic encephalopathy Status: Chronic (2) Respiratory failure Status: Chronic (3) UTI (urinary tract infection) Status: Resolved (4) Urinary retention Status: Acute (5) Hypokalemia Status: Acute (6) Sacral ulcer Status: Resolved (7) History of coronary artery disease Status: Acute (8) Seizures Status: Acute (9) Lower extremity edema Status: Acute - Assessment and Plan (Free Text) Plan: (1) Anoxic encephalopathy s/p cardiac arrest in 05/2015 no acute changes Pt has non spontaneous movements. Continue tube feeds- goal of 60ml/hr, feedings held at night due to fluid overload--> tube feeds 12h (2) Respiratory failure Trach in place, continue daily monitoring for secretions. No change in management at this time. Continue with aggressive suctioning multiple times a day per respiratory therapist. Monitor for signs of respiratory distress Thick secretions Duoneb 3ml INH Q6 and Mucomyst 4ml INH Q8H Scopolamine 1 patch TD Q3D [facility] Repeat CXR on 05/28/17: linear increased consolidative changes in the right mid- lung zone and left lung base which may represent atelectasis and/or infiltrate. Questionable trace left pleural effusion. moderate venous congestion. cardiomegaly. degenerative changes in the spine and shoulders Repeat CXR 09/28/17: no active disease; no change from previous CXR. (3) UTI Leukocytosis secondary to UTI. Resolved 10/19/17: afebrile, WBC within normal range 10/12: afebrile, WBC within normal range 08/10: WBC 8.2 afebrile Meropenem (started 07/22) - per Dr. Armstrong continue for a total of 2 weeks - Discontinued 08/05/17 ID consult: Dr. Armstrong --> help appreciated (4) Urinary retention 10/12: Condom baker in place; continue to monitor 07/21: NS stopped because tube feeds restarted 07/20: Urine dark in color, monitor, continue NS at 50 ml per hour 07/07/17: Catheter flushed, patient output approx. 500mL within one hour post flush. 06/27/17: Continue bladder massages to aid in voiding. 06/25/17: Patient voids with movement. Continue bladder massages to aid in voiding. 06/23/17: Patient will need to have daily bladder massage to allow for complete voiding 06/17/17: Nursing communication placed in: straight catherization with bladder scan> 100ml 06/08: urinary retention yesterday, was given 40mg lasix iv and patient was able to urinate through condom baker Take note condom cath not always securely in place so Is and Os are approximate as patient does wet bed Ordered- new condom catheter on 05/22/17 Flomax 0.4mg PEG daily Proscar 5mg PEG daily continue Bethanecol 50mg PEG TID- started after persistent retention and found to be effective. monitor I's and O's Check bladder scan for residual urine three times weekly (5) Hypokalemia 10/12: K+ was 3.3; replaced K+ on 08/10: 4.2 (6) Sacral ulcer, resolved Healed Cont with offloading/cushioning/turning Continue frequent turning, protective ointment and skin checks. (7) History of coronary artery disease s/p cardiac stents on 06/13/15 Cont ASA 81mg via PEG daily Cont Coreg 3.125mg PEG BID Cont Plavix 75 mg PEG daily (8) Seizures Continue Keppra 500mg PEG BID for seizure prophylaxis Monitor for activity (9) Lower extremity edema Improved SCDs in place Pressure ulcer boots on b/l Continue to monitor (10) Prophylactic measure Pepcid 20 mg PEG BID Lovenox 40mg SC daily SCDs and offloading boots continue to turn and reposition q2hrs Continue to monitor medication administrations and clinical presentation weekly labs. vasoline ointment applied to feet prn to prevent hyperkeratosis Please hold feeding from 10pm-6am, placed into nursing communication Vitamin A & D for lips There is no update at this time. <Jeison Moore - Last Filed: 10/28/17 15:05> Objective - Vital Signs/Intake and Output Vital Signs (last 24 hours): Temp Pulse Resp BP Pulse Ox 98 F 74 20 107/69 100 10/28/17 07:38 10/28/17 07:38 10/28/17 07:38 10/28/17 07:38 10/28/17 07:38 Intake and Output: 10/28/17 10/28/17 06:59 18:59 Intake Total 380 Output Total 750 Balance -370 - Medications Medications: Current Medications Acetylcysteine (Acetylcysteine 20%) 4 ml INH RQ8 [facility] Last Admin: 10/28/17 07:47 Dose: 4 ml Albuterol/Ipratropium (Duoneb 3 Mg/0.5 Mg (3 Ml) Ud) 3 ml INH RQ6 [facility] Last Admin: 10/28/17 13:16 Dose: 3 ml Aspirin (Aspirin Chewable) 81 mg PEG DAILY [facility] Last Admin: 10/28/17 10:11 Dose: 81 mg Carvedilol (Coreg) 3.125 mg PEG BID [facility] Last Admin: 10/28/17 10:11 Dose: 3.125 mg Famotidine (Pepcid) 20 mg PEG DAILY [facility] Last Admin: 10/28/17 10:13 Dose: 20 mg Finasteride (Proscar) 5 mg PEG DAILY [facility] Last Admin: 10/28/17 10:13 Dose: 5 mg Dextrose/Sodium Chloride (Dextrose 5%/0.45% Ns 1000 Ml) 1,000 mls @ 75 mls/hr IV .[id number] [facility] Last Admin: 09/28/17 15:12 Dose: 75 mls/hr Levetiracetam (Keppra) 500 mg PEG BID [facility] Last Admin: 10/28/17 10:13 Dose: 500 mg Saccharomyces Boulardii (Florastor) 250 mg PEG DAILY [facility] Last Admin: 10/28/17 10:12 Dose: 250 mg Scopolamine (Transderm-Scop) 1 patch TD Q3D [facility] Last Admin: 10/24/17 04:27 Dose: 1 patch Tamsulosin HCl (Flomax) 0.4 mg PEG DAILY [facility] Last Admin: 10/28/17 10:12 Dose: 0.4 mg - Labs Labs: 10/28/17 06:40 10/28/17 07:59 PT 10.6 SECONDS (9.7-12.2) 11/24/15 14:10 INR 1.0 11/24/15 14:10 APTT 25 SECONDS (21-34) 11/24/15 14:10 Attending/Attestation - Attestation I have personally seen and examined this patient.: Yes I have fully participated in the care of the patient.: Yes I have reviewed all pertinent clinical information, including history, physical exam and plan: Yes
[2017-10-27] MEDS: levETIRAcetam 100 mg/ml (5ml) Oral Syringe PEG SCH ×2 (09:47→18:38)
[2017-10-27] MEDS: Saccharomyces Boulardi 250 mg Cap PEG SCH (09:47)
[2017-10-28] MEDS: Acetylcysteine 20% Inhal Soln (4ml) INH SCH ×3 (02:27→19:39)
[2017-10-28] MEDS: Albuterol-Ipratrop 3 mg / 0.5 (3 ml) UD INH SCH ×4 (02:27→19:38)
[2017-10-28 06:56] LABS: BASO % 0.4 % (0.0-2.0); EOS # 0.6 K/uL (0.0-0.7); HEMOGLOBIN 11.4 g/dL (12.0-18.0); LYMPH # 2.5 K/uL (1.0-4.3); LYMPH % 25.8 % (20.0-40.0); MEAN CELL VOLUME 89.5 fL (80.0-94.0); MEAN CORPUSCULAR HEMOGLOBIN 29.7 pg (27.0-31.0); MEAN CORPUSCULAR HGB CONC 33.2 g/dL (33.0-37.0); MONO # 0.9 K/uL (0.0-0.8); MONO % 9.1 % (0.0-10.0); NEUT # 5.6 K/uL (1.8-7.0); NEUT % 58.7 % (50.0-75.0); NRBC % 0.1 % (0.0-2.0); RBC 3.84 Mil/uL (4.40-5.90); RED CELL DISTRIBUTION WIDTH 15.3 % (11.5-14.5); WHITE BLOOD COUNT 9.6 K/uL (4.8-10.8)
[2017-10-28 08:34] LABS: ALB/GLOB RATIO 0.8 (1.0-2.1); ALBUMIN 3.5 g/dL (3.5-5.0); ALT/SGPT 60 U/L (21-72); AST/SGOT 32 U/L (17-59); BLOOD UREA NITROGEN 10 mg/dL (9-20); CALCIUM 8.2 mg/dl (8.6-10.4); GFR NON-AFRICAN AMERICAN > 60
[2017-10-28] MEDS: Saccharomyces Boulardi 250 mg Cap PEG SCH (10:12)
[2017-10-28] MEDS: levETIRAcetam 100 mg/ml (5ml) Oral Syringe PEG SCH ×2 (10:13→17:55)
--- NOTE | 2017-10-28 11:03 | CP.PCM.PN ---
<Vesna Turpin - Last Filed: 10/28/17 11:01> Subjective - Date & Time of Evaluation Date of Evaluation: 10/28/17 Time of Evaluation: 11:01 - Subjective Subjective: Medicine Progress Note for Dr. Moore Patient was seen and examined at bedside in no acute distress. Review of systems not obtained due to anoxic brain injury. Objective - Vital Signs/Intake and Output Vital Signs (last 24 hours): Temp Pulse Resp BP Pulse Ox 98 F 74 20 107/69 100 10/28/17 07:38 10/28/17 07:38 10/28/17 07:38 10/28/17 07:38 10/28/17 07:38 Intake and Output: 10/28/17 10/28/17 06:59 18:59 Intake Total 380 Output Total 750 Balance -370 - Medications Medications: Current Medications Acetylcysteine (Acetylcysteine 20%) 4 ml INH RQ8 [facility] Last Admin: 10/28/17 07:47 Dose: 4 ml Albuterol/Ipratropium (Duoneb 3 Mg/0.5 Mg (3 Ml) Ud) 3 ml INH RQ6 [facility] Last Admin: 10/28/17 07:47 Dose: 3 ml Aspirin (Aspirin Chewable) 81 mg PEG DAILY [facility] Last Admin: 10/28/17 10:11 Dose: 81 mg Carvedilol (Coreg) 3.125 mg PEG BID [facility] Last Admin: 10/28/17 10:11 Dose: 3.125 mg Famotidine (Pepcid) 20 mg PEG DAILY [facility] Last Admin: 10/28/17 10:13 Dose: 20 mg Finasteride (Proscar) 5 mg PEG DAILY [facility] Last Admin: 10/28/17 10:13 Dose: 5 mg Dextrose/Sodium Chloride (Dextrose 5%/0.45% Ns 1000 Ml) 1,000 mls @ 75 mls/hr IV .[id number] [facility] Last Admin: 09/28/17 15:12 Dose: 75 mls/hr Levetiracetam (Keppra) 500 mg PEG BID [facility] Last Admin: 10/28/17 10:13 Dose: 500 mg Potassium Chloride (Potassium Chloride Oral Soln) 40 meq PEG ONCE ONE Stop: 10/28/17 11:01 Saccharomyces Boulardii (Florastor) 250 mg PEG DAILY [facility] Last Admin: 10/28/17 10:12 Dose: 250 mg Scopolamine (Transderm-Scop) 1 patch TD Q3D [facility] Last Admin: 10/24/17 04:27 Dose: 1 patch Tamsulosin HCl (Flomax) 0.4 mg PEG DAILY [facility] Last Admin: 10/28/17 10:12 Dose: 0.4 mg - Labs Labs: 10/28/17 06:40 10/28/17 07:59 PT 10.6 SECONDS (9.7-12.2) 11/24/15 14:10 INR 1.0 11/24/15 14:10 APTT 25 SECONDS (21-34) 11/24/15 14:10 - Additional Findings Additional findings: - Head Exam Head Exam: ATRAUMATIC, NORMAL INSPECTION - Eye Exam Eye Exam: absent: EOMI, Normal appearance - ENT Exam ENT Exam: Mucous Membranes Moist - Neck Exam Additional comments: Trach in place - Respiratory Exam Respiratory Exam: Rales, Rhonchi, Wheezes. absent: Clear to Ausculation Bilateral (excessive mucous production, congestion- improved), Respiratory Distress - Cardiovascular Exam Cardiovascular Exam: REGULAR RHYTHM, +S1, +S2 - GI/Abdominal Exam GI & Abdominal Exam: Distended, Soft, Hypoactive Bowel Sounds. absent: Firm, Mass Additional comments: PEG in place - Extremities Exam Extremities Exam: absent: Pedal Edema - Neurological Exam Neurological Exam: Altered. absent: Alert, Awake, Oriented x3 - Psychiatric Exam Psychiatric exam: Flat Affect. absent: Normal Affect, Normal Mood - Skin Skin Exam: Dry, Intact, Normal Color, Warm; no sacral ulcers noted Assessment and Plan (1) Anoxic encephalopathy Status: Chronic (2) Respiratory failure Status: Chronic (3) UTI (urinary tract infection) Status: Resolved (4) Urinary retention Status: Acute (5) Hypokalemia Status: Acute (6) Sacral ulcer Status: Resolved (7) History of coronary artery disease Status: Acute (8) Seizures Status: Acute (9) Lower extremity edema Status: Acute - Assessment and Plan (Free Text) Plan: (1) Anoxic encephalopathy s/p cardiac arrest in 05/2015 no acute changes Pt has non spontaneous movements. Continue tube feeds- goal of 60ml/hr, feedings held at night due to fluid overload--> tube feeds 12h (2) Respiratory failure Trach in place, continue daily monitoring for secretions. No change in management at this time. Continue with aggressive suctioning multiple times a day per respiratory therapist. Monitor for signs of respiratory distress Thick secretions Duoneb 3ml INH Q6 and Mucomyst 4ml INH Q8H Scopolamine 1 patch TD Q3D [facility] Repeat CXR on 05/28/17: linear increased consolidative changes in the right mid- lung zone and left lung base which may represent atelectasis and/or infiltrate. Questionable trace left pleural effusion. moderate venous congestion. cardiomegaly. degenerative changes in the spine and shoulders Repeat CXR 09/28/17: no active disease; no change from previous CXR. (3) UTI Leukocytosis secondary to UTI. Resolved 10/19/17: afebrile, WBC within normal range 10/12: afebrile, WBC within normal range 08/10: WBC 8.2 afebrile Meropenem (started 07/22) - per Dr. Armstrong continue for a total of 2 weeks - Discontinued 08/05/17 ID consult: Dr. Armstrong --> help appreciated (4) Urinary retention 10/12: Condom baker in place; continue to monitor 07/21: NS stopped because tube feeds restarted 07/20: Urine dark in color, monitor, continue NS at 50 ml per hour 07/07/17: Catheter flushed, patient output approx. 500mL within one hour post flush. 06/27/17: Continue bladder massages to aid in voiding. 06/25/17: Patient voids with movement. Continue bladder massages to aid in voiding. 06/23/17: Patient will need to have daily bladder massage to allow for complete voiding 06/17/17: Nursing communication placed in: straight catherization with bladder scan> 100ml 06/08: urinary retention yesterday, was given 40mg lasix iv and patient was able to urinate through condom baker Take note condom cath not always securely in place so Is and Os are approximate as patient does wet bed Ordered- new condom catheter on 05/22/17 Flomax 0.4mg PEG daily Proscar 5mg PEG daily continue Bethanecol 50mg PEG TID- started after persistent retention and found to be effective. monitor I's and O's Check bladder scan for residual urine three times weekly (5) Hypokalemia 12/6: 3.4; given 40mEq via PEG 10/12: K+ was 3.3; replaced K+ on 08/10: 4.2 (6) Sacral ulcer, resolved Healed Cont with offloading/cushioning/turning Continue frequent turning, protective ointment and skin checks. (7) History of coronary artery disease s/p cardiac stents on 06/13/15 Cont ASA 81mg via PEG daily Cont Coreg 3.125mg PEG BID Cont Plavix 75 mg PEG daily (8) Seizures Continue Keppra 500mg PEG BID for seizure prophylaxis Monitor for activity (9) Lower extremity edema Improved SCDs in place Pressure ulcer boots on b/l Continue to monitor (10) Prophylactic measure Pepcid 20 mg PEG BID Lovenox 40mg SC daily SCDs and offloading boots continue to turn and reposition q2hrs Continue to monitor medication administrations and clinical presentation weekly labs. vasoline ointment applied to feet prn to prevent hyperkeratosis Please hold feeding from 10pm-6am, placed into nursing communication Vitamin A & D for lips There is no update at this time. <Jeison Moore - Last Filed: 10/28/17 15:12> Objective - Vital Signs/Intake and Output Vital Signs (last 24 hours): Temp Pulse Resp BP Pulse Ox 98 F 74 20 107/69 100 10/28/17 07:38 10/28/17 07:38 10/28/17 07:38 10/28/17 07:38 10/28/17 07:38 Intake and Output: 10/28/17 10/28/17 06:59 18:59 Intake Total 380 Output Total 750 Balance -370 - Medications Medications: Current Medications Acetylcysteine (Acetylcysteine 20%) 4 ml INH RQ8 [facility] Last Admin: 10/28/17 07:47 Dose: 4 ml Albuterol/Ipratropium (Duoneb 3 Mg/0.5 Mg (3 Ml) Ud) 3 ml INH RQ6 [facility] Last Admin: 10/28/17 13:16 Dose: 3 ml Aspirin (Aspirin Chewable) 81 mg PEG DAILY [facility] Last Admin: 10/28/17 10:11 Dose: 81 mg Carvedilol (Coreg) 3.125 mg PEG BID [facility] Last Admin: 10/28/17 10:11 Dose: 3.125 mg Famotidine (Pepcid) 20 mg PEG DAILY [facility] Last Admin: 10/28/17 10:13 Dose: 20 mg Finasteride (Proscar) 5 mg PEG DAILY [facility] Last Admin: 10/28/17 10:13 Dose: 5 mg Dextrose/Sodium Chloride (Dextrose 5%/0.45% Ns 1000 Ml) 1,000 mls @ 75 mls/hr IV .[id number] [facility] Last Admin: 09/28/17 15:12 Dose: 75 mls/hr Levetiracetam (Keppra) 500 mg PEG BID [facility] Last Admin: 10/28/17 10:13 Dose: 500 mg Saccharomyces Boulardii (Florastor) 250 mg PEG DAILY [facility] Last Admin: 10/28/17 10:12 Dose: 250 mg Scopolamine (Transderm-Scop) 1 patch TD Q3D [facility] Last Admin: 10/24/17 04:27 Dose: 1 patch Tamsulosin HCl (Flomax) 0.4 mg PEG DAILY [facility] Last Admin: 10/28/17 10:12 Dose: 0.4 mg - Labs Labs: 10/28/17 06:40 10/28/17 07:59 PT 10.6 SECONDS (9.7-12.2) 11/24/15 14:10 INR 1.0 11/24/15 14:10 APTT 25 SECONDS (21-34) 11/24/15 14:10 Attending/Attestation - Attestation I have personally seen and examined this patient.: No I have fully participated in the care of the patient.: Yes I have reviewed all pertinent clinical information, including history, physical exam and plan: Yes
[2017-10-29] MEDS: Albuterol-Ipratrop 3 mg / 0.5 (3 ml) UD INH SCH ×4 (02:54→20:22)
[2017-10-29] MEDS: Acetylcysteine 20% Inhal Soln (4ml) INH SCH ×4 (02:55→23:54)
--- NOTE | 2017-10-29 07:37 | CP.PCM.PN ---
<Vesna Turpin - Last Filed: 10/29/17 13:12> Subjective - Date & Time of Evaluation Date of Evaluation: 10/29/17 Time of Evaluation: 07:35 - Subjective Subjective: Medicine Progress Note for Dr. Moore Patient was seen and examined at bedside in no acute distress. Review of systems not obtained due to anoxic brain injury. Objective - Vital Signs/Intake and Output Vital Signs (last 24 hours): Temp Pulse Resp BP Pulse Ox 98.4 F 70 20 135/81 99 10/28/17 23:31 10/28/17 23:31 10/28/17 23:31 10/28/17 23:31 10/28/17 23:31 Intake and Output: 10/29/17 10/29/17 06:59 18:59 Intake Total 620 380 Output Total 600 Balance 620 -220 - Medications Medications: Current Medications Acetylcysteine (Acetylcysteine 20%) 4 ml INH RQ8 [facility] Last Admin: 10/29/17 07:32 Dose: 4 ml Albuterol/Ipratropium (Duoneb 3 Mg/0.5 Mg (3 Ml) Ud) 3 ml INH RQ6 [facility] Last Admin: 10/29/17 07:32 Dose: 3 ml Aspirin (Aspirin Chewable) 81 mg PEG DAILY [facility] Last Admin: 10/28/17 10:11 Dose: 81 mg Carvedilol (Coreg) 3.125 mg PEG BID [facility] Last Admin: 10/28/17 17:55 Dose: 3.125 mg Famotidine (Pepcid) 20 mg PEG DAILY [facility] Last Admin: 10/28/17 10:13 Dose: 20 mg Finasteride (Proscar) 5 mg PEG DAILY [facility] Last Admin: 10/28/17 10:13 Dose: 5 mg Dextrose/Sodium Chloride (Dextrose 5%/0.45% Ns 1000 Ml) 1,000 mls @ 75 mls/hr IV .[id number] [facility] Last Admin: 09/28/17 15:12 Dose: 75 mls/hr Levetiracetam (Keppra) 500 mg PEG BID [facility] Last Admin: 10/28/17 17:55 Dose: 500 mg Saccharomyces Boulardii (Florastor) 250 mg PEG DAILY [facility] Last Admin: 10/28/17 10:12 Dose: 250 mg Scopolamine (Transderm-Scop) 1 patch TD Q3D [facility] Last Admin: 10/24/17 04:27 Dose: 1 patch Tamsulosin HCl (Flomax) 0.4 mg PEG DAILY [facility] Last Admin: 10/28/17 10:12 Dose: 0.4 mg - Labs Labs: 10/28/17 06:40 10/28/17 07:59 PT 10.6 SECONDS (9.7-12.2) 11/24/15 14:10 INR 1.0 11/24/15 14:10 APTT 25 SECONDS (21-34) 11/24/15 14:10 - Additional Findings Additional findings: - Head Exam Head Exam: ATRAUMATIC, NORMAL INSPECTION - Eye Exam Eye Exam: absent: EOMI, Normal appearance - ENT Exam ENT Exam: Mucous Membranes Moist - Neck Exam Additional comments: Trach in place - Respiratory Exam Respiratory Exam:Rhonchi, . absent: Clear to Ausculation Bilateral (excessive mucous production, congestion), Respiratory Distress - Cardiovascular Exam Cardiovascular Exam: REGULAR RHYTHM, +S1, +S2 - GI/Abdominal Exam GI & Abdominal Exam: Distended, Soft, Hypoactive Bowel Sounds. absent: Firm, Mass Additional comments: PEG in place - Extremities Exam Extremities Exam: absent: Pedal Edema - Neurological Exam Neurological Exam: Altered. absent: Alert, Awake, Oriented x3 - Psychiatric Exam Psychiatric exam: Flat Affect. absent: Normal Affect, Normal Mood - Skin Skin Exam: Dry, Intact, Normal Color, Warm; no sacral ulcers noted Assessment and Plan (1) Anoxic encephalopathy Status: Chronic (2) Respiratory failure Status: Chronic (3) UTI (urinary tract infection) Status: Resolved (4) Urinary retention Status: Acute (5) Hypokalemia Status: Acute (6) Sacral ulcer Status: Resolved (7) History of coronary artery disease Status: Acute (8) Seizures Status: Acute (9) Lower extremity edema Status: Acute - Assessment and Plan (Free Text) Plan: (1) Anoxic encephalopathy s/p cardiac arrest in 05/2015 no acute changes Pt has non spontaneous movements. Continue tube feeds- goal of 60ml/hr, feedings held at night due to fluid overload--> tube feeds 12h (2) Respiratory failure Trach in place, continue daily monitoring for secretions. No change in management at this time. Continue with aggressive suctioning multiple times a day per respiratory therapist. Monitor for signs of respiratory distress Thick secretions Duoneb 3ml INH Q6 and Mucomyst 4ml INH Q8H Scopolamine 1 patch TD Q3D [facility] Repeat CXR on 05/28/17: linear increased consolidative changes in the right mid- lung zone and left lung base which may represent atelectasis and/or infiltrate. Questionable trace left pleural effusion. moderate venous congestion. cardiomegaly. degenerative changes in the spine and shoulders Repeat CXR 09/28/17: no active disease; no change from previous CXR. (3) UTI Leukocytosis secondary to UTI. Resolved 10/19/17: afebrile, WBC within normal range 10/12: afebrile, WBC within normal range 08/10: WBC 8.2 afebrile Meropenem (started 07/22) - per Dr. Armstrong continue for a total of 2 weeks - Discontinued 08/05/17 ID consult: Dr. Armstrong --> help appreciated (4) Urinary retention 10/12: Condom baker in place; continue to monitor 07/21: NS stopped because tube feeds restarted 07/20: Urine dark in color, monitor, continue NS at 50 ml per hour 07/07/17: Catheter flushed, patient output approx. 500mL within one hour post flush. 06/27/17: Continue bladder massages to aid in voiding. 06/25/17: Patient voids with movement. Continue bladder massages to aid in voiding. 06/23/17: Patient will need to have daily bladder massage to allow for complete voiding 06/17/17: Nursing communication placed in: straight catherization with bladder scan> 100ml 06/08: urinary retention yesterday, was given 40mg lasix iv and patient was able to urinate through condom baker Take note condom cath not always securely in place so Is and Os are approximate as patient does wet bed Ordered- new condom catheter on 05/22/17 Flomax 0.4mg PEG daily Proscar 5mg PEG daily continue Bethanecol 50mg PEG TID- started after persistent retention and found to be effective. monitor I's and O's Check bladder scan for residual urine three times weekly (5) Hypokalemia 10/28: 3.4; given 40mEq via PEG 10/12: K+ was 3.3; replaced K+ on 08/10: 4.2 (6) Sacral ulcer, resolved Healed Cont with offloading/cushioning/turning Continue frequent turning, protective ointment and skin checks. (7) History of coronary artery disease s/p cardiac stents on 06/13/15 Cont ASA 81mg via PEG daily Cont Coreg 3.125mg PEG BID Cont Plavix 75 mg PEG daily (8) Seizures Continue Keppra 500mg PEG BID for seizure prophylaxis Monitor for activity (9) Lower extremity edema Improved SCDs in place Pressure ulcer boots on b/l Continue to monitor (10) Prophylactic measure Pepcid 20 mg PEG BID Lovenox 40mg SC daily SCDs and offloading boots continue to turn and reposition q2hrs Continue to monitor medication administrations and clinical presentation weekly labs. vasoline ointment applied to feet prn to prevent hyperkeratosis Please hold feeding from 10pm-6am, placed into nursing communication Vitamin A & D for lips There is no update at this time. <Jeison Moore - Last Filed: 10/31/17 18:47> Objective - Vital Signs/Intake and Output Vital Signs (last 24 hours): Temp Pulse Resp BP Pulse Ox 98.2 F 70 18 125/69 98 10/31/17 14:00 10/31/17 14:00 10/31/17 14:00 10/31/17 14:00 10/31/17 14:00 Intake and Output: 10/31/17 10/31/17 06:59 18:59 Intake Total 1300 620 Output Total 700 300 Balance 600 320 - Medications Medications: Current Medications Acetylcysteine (Acetylcysteine 20%) 4 ml INH RQ8 [facility] Last Admin: 10/31/17 07:29 Dose: Not Given Albuterol/Ipratropium (Duoneb 3 Mg/0.5 Mg (3 Ml) Ud) 3 ml INH RQ6 [facility] Last Admin: 10/31/17 13:11 Dose: 3 ml Aspirin (Aspirin Chewable) 81 mg PEG DAILY [facility] Last Admin: 10/31/17 10:14 Dose: 81 mg Carvedilol (Coreg) 3.125 mg PEG BID [facility] Last Admin: 10/31/17 18:41 Dose: 3.125 mg Enoxaparin Sodium (Lovenox) 40 mg SC DAILY [facility] Last Admin: 10/31/17 10:21 Dose: 40 mg Famotidine (Pepcid) 20 mg PEG DAILY [facility] Last Admin: 10/31/17 10:14 Dose: 20 mg Finasteride (Proscar) 5 mg PEG DAILY [facility] Last Admin: 10/31/17 10:38 Dose: 5 mg Levetiracetam (Keppra) 500 mg PEG BID [facility] Last Admin: 10/31/17 18:42 Dose: 500 mg Saccharomyces Boulardii (Florastor) 250 mg PEG DAILY [facility] Last Admin: 10/31/17 10:14 Dose: 250 mg Scopolamine (Transderm-Scop) 1 patch TD Q3D [facility] Last Admin: 10/24/17 04:27 Dose: 1 patch Tamsulosin HCl (Flomax) 0.4 mg PEG DAILY [facility] Last Admin: 10/31/17 10:15 Dose: 0.4 mg - Labs Labs: 10/28/17 06:40 10/28/17 07:59 PT 10.6 SECONDS (9.7-12.2) 11/24/15 14:10 INR 1.0 11/24/15 14:10 APTT 25 SECONDS (21-34) 11/24/15 14:10 Attending/Attestation - Attestation I have personally seen and examined this patient.: No I have fully participated in the care of the patient.: Yes I have reviewed all pertinent clinical information, including history, physical exam and plan: Yes
[2017-10-29] MEDS: Saccharomyces Boulardi 250 mg Cap PEG SCH (10:58)
[2017-10-29] MEDS: levETIRAcetam 100 mg/ml (5ml) Oral Syringe PEG SCH ×2 (10:59→18:22)
[2017-10-30] MEDS: Albuterol-Ipratrop 3 mg / 0.5 (3 ml) UD INH SCH ×4 (01:24→19:40)
--- NOTE | 2017-10-30 07:20 | CP.PCM.PN ---
<Waqar Camposa - Last Filed: 10/30/17 07:19> Subjective - Date & Time of Evaluation Date of Evaluation: 10/30/17 Time of Evaluation: 07:00 - Subjective Subjective: Medicine Progress Note for Hospitalist Service- Dr. Moore Patient was seen and examined at bedside in no acute distress. Review of systems not obtained due to anoxic brain injury. Objective - Vital Signs/Intake and Output Vital Signs (last 24 hours): Temp Pulse Resp BP Pulse Ox 98.2 F 69 20 97/66 L 98 10/29/17 23:54 10/29/17 23:54 10/29/17 23:54 10/29/17 23:54 10/29/17 23:54 Intake and Output: 10/30/17 10/30/17 06:59 18:59 Intake Total 1000 Output Total 400 Balance 600 - Medications Medications: Current Medications Acetylcysteine (Acetylcysteine 20%) 4 ml INH RQ8 [facility] Last Admin: 10/29/17 23:54 Dose: Not Given Albuterol/Ipratropium (Duoneb 3 Mg/0.5 Mg (3 Ml) Ud) 3 ml INH RQ6 [facility] Last Admin: 10/30/17 01:24 Dose: 3 ml Aspirin (Aspirin Chewable) 81 mg PEG DAILY [facility] Last Admin: 10/29/17 10:59 Dose: 81 mg Carvedilol (Coreg) 3.125 mg PEG BID [facility] Last Admin: 10/29/17 18:23 Dose: 3.125 mg Enoxaparin Sodium (Lovenox) 40 mg SC DAILY [facility] Famotidine (Pepcid) 20 mg PEG DAILY [facility] Last Admin: 10/29/17 10:58 Dose: 20 mg Finasteride (Proscar) 5 mg PEG DAILY [facility] Last Admin: 10/29/17 10:58 Dose: 5 mg Dextrose/Sodium Chloride (Dextrose 5%/0.45% Ns 1000 Ml) 1,000 mls @ 75 mls/hr IV .[id number] [facility] Last Admin: 09/28/17 15:12 Dose: 75 mls/hr Levetiracetam (Keppra) 500 mg PEG BID [facility] Last Admin: 10/29/17 18:22 Dose: 500 mg Saccharomyces Boulardii (Florastor) 250 mg PEG DAILY [facility] Last Admin: 10/29/17 10:58 Dose: 250 mg Scopolamine (Transderm-Scop) 1 patch TD Q3D [facility] Last Admin: 10/24/17 04:27 Dose: 1 patch Tamsulosin HCl (Flomax) 0.4 mg PEG DAILY [facility] Last Admin: 10/29/17 10:58 Dose: 0.4 mg - Labs Labs: 10/28/17 06:40 10/28/17 07:59 PT 10.6 SECONDS (9.7-12.2) 11/24/15 14:10 INR 1.0 11/24/15 14:10 APTT 25 SECONDS (21-34) 11/24/15 14:10 - Additional Findings Additional findings: - Head Exam Head Exam: ATRAUMATIC, NORMAL INSPECTION - Eye Exam Eye Exam: absent: EOMI, Normal appearance - ENT Exam ENT Exam: Mucous Membranes Moist - Neck Exam Additional comments: Trach in place - Respiratory Exam Respiratory Exam:Rhonchi, . absent: Clear to Ausculation Bilateral (excessive mucous production, congestion), Respiratory Distress - Cardiovascular Exam Cardiovascular Exam: REGULAR RHYTHM, +S1, +S2 - GI/Abdominal Exam GI & Abdominal Exam: Distended, Soft, Hypoactive Bowel Sounds. absent: Firm, Mass Additional comments: PEG in place - Extremities Exam Extremities Exam: absent: Pedal Edema - Neurological Exam Neurological Exam: Altered. absent: Alert, Awake, Oriented x3 - Psychiatric Exam Psychiatric exam: Flat Affect. absent: Normal Affect, Normal Mood - Skin Skin Exam: Dry, Intact, Normal Color, Warm; no sacral ulcers noted Assessment and Plan - Assessment and Plan (Free Text) Plan: (1) Anoxic encephalopathy s/p cardiac arrest in 05/2015 no acute changes Pt has non spontaneous movements. Continue tube feeds- goal of 60ml/hr, feedings held at night due to fluid overload--> tube feeds 12h (2) Respiratory failure Trach in place, continue daily monitoring for secretions. No change in management at this time. Continue with aggressive suctioning multiple times a day per respiratory therapist. Monitor for signs of respiratory distress Thick secretions Duoneb 3ml INH Q6 and Mucomyst 4ml INH Q8H Scopolamine 1 patch TD Q3D [facility] Repeat CXR on 05/28/17: linear increased consolidative changes in the right mid- lung zone and left lung base which may represent atelectasis and/or infiltrate. Questionable trace left pleural effusion. moderate venous congestion. cardiomegaly. degenerative changes in the spine and shoulders Repeat CXR 09/28/17: no active disease; no change from previous CXR. (3) UTI Leukocytosis secondary to UTI. Resolved 10/19/17: afebrile, WBC within normal range 10/12: afebrile, WBC within normal range 08/10: WBC 8.2 afebrile Meropenem (started 07/22) - per Dr. Amrstrong continue for a total of 2 weeks - Discontinued 08/05/17 ID consult: Dr. Armstrong --> help appreciated (4) Urinary retention 10/12: Condom baker in place; continue to monitor 07/21: NS stopped because tube feeds restarted 07/20: Urine dark in color, monitor, continue NS at 50 ml per hour 07/07/17: Catheter flushed, patient output approx. 500mL within one hour post flush. 06/27/17: Continue bladder massages to aid in voiding. 06/25/17: Patient voids with movement. Continue bladder massages to aid in voiding. 06/23/17: Patient will need to have daily bladder massage to allow for complete voiding 06/17/17: Nursing communication placed in: straight catherization with bladder scan> 100ml 06/08: urinary retention yesterday, was given 40mg lasix iv and patient was able to urinate through condom baker Take note condom cath not always securely in place so Is and Os are approximate as patient does wet bed Ordered- new condom catheter on 05/22/17 Flomax 0.4mg PEG daily Proscar 5mg PEG daily continue Bethanecol 50mg PEG TID- started after persistent retention and found to be effective. monitor I's and O's Check bladder scan for residual urine three times weekly (5) Hypokalemia 10/28: 3.4; given 40mEq via PEG 10/12: K+ was 3.3; replaced K+ on 08/10: 4.2 (6) Sacral ulcer, resolved Healed Cont with offloading/cushioning/turning Continue frequent turning, protective ointment and skin checks. (7) History of coronary artery disease s/p cardiac stents on 06/13/15 Cont ASA 81mg via PEG daily Cont Coreg 3.125mg PEG BID Cont Plavix 75 mg PEG daily (8) Seizures Continue Keppra 500mg PEG BID for seizure prophylaxis Monitor for activity (9) Lower extremity edema Improved SCDs in place Pressure ulcer boots on b/l Continue to monitor (10) Prophylactic measure Pepcid 20 mg PEG BID Lovenox 40mg SC daily SCDs and offloading boots continue to turn and reposition q2hrs Continue to monitor medication administrations and clinical presentation weekly labs. vasoline ointment applied to feet prn to prevent hyperkeratosis Please hold feeding from 10pm-6am, placed into nursing communication Vitamin A & D for lips There is no update at this time. DW Beth Dunbar DO, PGY-1 <Jeison Moore - Last Filed: 10/31/17 18:21> Objective - Vital Signs/Intake and Output Vital Signs (last 24 hours): Temp Pulse Resp BP Pulse Ox 98.2 F 65 20 109/70 97 10/31/17 08:04 10/31/17 08:04 10/31/17 08:04 10/31/17 08:04 10/31/17 08:04 Intake and Output: 10/31/17 10/31/17 06:59 18:59 Intake Total 1300 Output Total 700 Balance 600 - Medications Medications: Current Medications Acetylcysteine (Acetylcysteine 20%) 4 ml INH RQ8 [facility] Last Admin: 10/31/17 07:29 Dose: Not Given Albuterol/Ipratropium (Duoneb 3 Mg/0.5 Mg (3 Ml) Ud) 3 ml INH RQ6 [facility] Last Admin: 10/31/17 13:11 Dose: 3 ml Aspirin (Aspirin Chewable) 81 mg PEG DAILY [facility] Last Admin: 10/31/17 10:14 Dose: 81 mg Carvedilol (Coreg) 3.125 mg PEG BID [facility] Last Admin: 10/31/17 10:14 Dose: 3.125 mg Enoxaparin Sodium (Lovenox) 40 mg SC DAILY [facility] Last Admin: 10/31/17 10:21 Dose: 40 mg Famotidine (Pepcid) 20 mg PEG DAILY [facility] Last Admin: 10/31/17 10:14 Dose: 20 mg Finasteride (Proscar) 5 mg PEG DAILY [facility] Last Admin: 10/31/17 10:38 Dose: 5 mg Levetiracetam (Keppra) 500 mg PEG BID [facility] Last Admin: 10/31/17 10:15 Dose: 500 mg Saccharomyces Boulardii (Florastor) 250 mg PEG DAILY [facility] Last Admin: 10/31/17 10:14 Dose: 250 mg Scopolamine (Transderm-Scop) 1 patch TD Q3D [facility] Last Admin: 10/24/17 04:27 Dose: 1 patch Tamsulosin HCl (Flomax) 0.4 mg PEG DAILY [facility] Last Admin: 10/31/17 10:15 Dose: 0.4 mg - Labs Labs: 10/28/17 06:40 10/28/17 07:59 PT 10.6 SECONDS (9.7-12.2) 11/24/15 14:10 INR 1.0 11/24/15 14:10 APTT 25 SECONDS (21-34) 11/24/15 14:10 Attending/Attestation - Attestation I have personally seen and examined this patient.: No I have fully participated in the care of the patient.: No I have reviewed all pertinent clinical information, including history, physical exam and plan: No Notes (Text): Seen and examined no changes noted I agree with the documentation of the assessment and the plan of the resident 10/31/17 18:19
[2017-10-30] MEDS: Acetylcysteine 20% Inhal Soln (4ml) INH SCH ×2 (07:29→16:05)
[2017-10-30] MEDS: levETIRAcetam 100 mg/ml (5ml) Oral Syringe PEG SCH ×2 (11:13→18:46)
[2017-10-30] MEDS: Saccharomyces Boulardi 250 mg Cap PEG SCH (11:13)
[2017-10-30] MEDS: Enoxaparin 40 mg Syringe SC SCH (11:15)
--- NOTE | 2017-10-31 00:21 | CP.PCM.PN ---
<Vesna Turpin - Last Filed: 10/31/17 00:19> Subjective - Date & Time of Evaluation Date of Evaluation: 10/31/17 Time of Evaluation: 00:19 - Subjective Subjective: Medicine Progress Note Patient was seen and examined at bedside in no acute distress. Review of systems not obtained due to anoxic brain injury. Objective - Vital Signs/Intake and Output Vital Signs (last 24 hours): Temp Pulse Resp BP Pulse Ox 97.9 F 85 20 112/79 98 10/30/17 23:54 10/30/17 23:54 10/30/17 23:54 10/30/17 23:54 10/30/17 23:54 Intake and Output: 10/30/17 10/31/17 18:59 06:59 Intake Total 620 920 Output Total 350 600 Balance 270 320 - Medications Medications: Current Medications Acetylcysteine (Acetylcysteine 20%) 4 ml INH RQ8 [facility] Last Admin: 10/30/17 16:05 Dose: 4 ml Albuterol/Ipratropium (Duoneb 3 Mg/0.5 Mg (3 Ml) Ud) 3 ml INH RQ6 [facility] Last Admin: 10/30/17 19:40 Dose: 3 ml Aspirin (Aspirin Chewable) 81 mg PEG DAILY [facility] Last Admin: 10/30/17 11:13 Dose: 81 mg Carvedilol (Coreg) 3.125 mg PEG BID [facility] Last Admin: 10/30/17 18:57 Dose: 3.125 mg Enoxaparin Sodium (Lovenox) 40 mg SC DAILY [facility] Last Admin: 10/30/17 11:15 Dose: 40 mg Famotidine (Pepcid) 20 mg PEG DAILY [facility] Last Admin: 10/30/17 11:13 Dose: 20 mg Finasteride (Proscar) 5 mg PEG DAILY [facility] Last Admin: 10/30/17 11:13 Dose: 5 mg Levetiracetam (Keppra) 500 mg PEG BID [facility] Last Admin: 10/30/17 18:46 Dose: 500 mg Saccharomyces Boulardii (Florastor) 250 mg PEG DAILY [facility] Last Admin: 10/30/17 11:13 Dose: 250 mg Scopolamine (Transderm-Scop) 1 patch TD Q3D [facility] Last Admin: 10/24/17 04:27 Dose: 1 patch Tamsulosin HCl (Flomax) 0.4 mg PEG DAILY [facility] Last Admin: 10/30/17 11:13 Dose: 0.4 mg - Labs Labs: 10/28/17 06:40 10/28/17 07:59 PT 10.6 SECONDS (9.7-12.2) 11/24/15 14:10 INR 1.0 11/24/15 14:10 APTT 25 SECONDS (21-34) 11/24/15 14:10 - Additional Findings Additional findings: - Head Exam Head Exam: ATRAUMATIC, NORMAL INSPECTION - Eye Exam Eye Exam: absent: EOMI, Normal appearance - ENT Exam ENT Exam: Mucous Membranes Moist - Neck Exam Additional comments: Trach in place - Respiratory Exam Respiratory Exam:Rhonchi. absent: Clear to Ausculation Bilateral (excessive mucous production), Respiratory Distress - Cardiovascular Exam Cardiovascular Exam: REGULAR RHYTHM, +S1, +S2 - GI/Abdominal Exam GI & Abdominal Exam: Distended, Soft, Hypoactive Bowel Sounds. absent: Firm, Mass Additional comments: PEG in place - Extremities Exam Extremities Exam: absent: Pedal Edema - Neurological Exam Neurological Exam: Altered. absent: Alert, Awake, Oriented x3 - Psychiatric Exam Psychiatric exam: Flat Affect. absent: Normal Affect, Normal Mood - Skin Skin Exam: Dry, Intact, Normal Color, Warm; no sacral ulcers noted Assessment and Plan (1) Anoxic encephalopathy Status: Chronic (2) Respiratory failure Status: Chronic (3) UTI (urinary tract infection) Status: Resolved (4) Urinary retention Status: Acute (5) Hypokalemia Status: Acute (6) Sacral ulcer Status: Resolved (7) History of coronary artery disease Status: Acute (8) Seizures Status: Acute (9) Lower extremity edema Status: Acute - Assessment and Plan (Free Text) Plan: (1) Anoxic encephalopathy s/p cardiac arrest in 05/2015 no acute changes Pt has non spontaneous movements. Continue tube feeds- goal of 60ml/hr, feedings held at night due to fluid overload--> tube feeds 12h (2) Respiratory failure Trach in place, continue daily monitoring for secretions. No change in management at this time. Continue with aggressive suctioning multiple times a day per respiratory therapist. Monitor for signs of respiratory distress Thick secretions Duoneb 3ml INH Q6 and Mucomyst 4ml INH Q8H Scopolamine 1 patch TD Q3D [facility] Repeat CXR on 05/28/17: linear increased consolidative changes in the right mid- lung zone and left lung base which may represent atelectasis and/or infiltrate. Questionable trace left pleural effusion. moderate venous congestion. cardiomegaly. degenerative changes in the spine and shoulders Repeat CXR 09/28/17: no active disease; no change from previous CXR. (3) UTI Leukocytosis secondary to UTI. Resolved 10/19/17: afebrile, WBC within normal range 10/12: afebrile, WBC within normal range 08/10: WBC 8.2 afebrile Meropenem (started 07/22) - per Dr. Armstrong continue for a total of 2 weeks - Discontinued 08/05/17 ID consult: Dr. Armstrong --> help appreciated (4) Urinary retention 10/12: Condom baker in place; continue to monitor 07/21: NS stopped because tube feeds restarted 07/20: Urine dark in color, monitor, continue NS at 50 ml per hour 07/07/17: Catheter flushed, patient output approx. 500mL within one hour post flush. 06/27/17: Continue bladder massages to aid in voiding. 06/25/17: Patient voids with movement. Continue bladder massages to aid in voiding. 06/23/17: Patient will need to have daily bladder massage to allow for complete voiding 06/17/17: Nursing communication placed in: straight catherization with bladder scan> 100ml 06/08: urinary retention yesterday, was given 40mg lasix iv and patient was able to urinate through condom baker Take note condom cath not always securely in place so Is and Os are approximate as patient does wet bed Ordered- new condom catheter on 05/22/17 Flomax 0.4mg PEG daily Proscar 5mg PEG daily continue Bethanecol 50mg PEG TID- started after persistent retention and found to be effective. monitor I's and O's Check bladder scan for residual urine three times weekly (5) Hypokalemia 10/28: 3.4; given 40mEq via PEG 10/12: K+ was 3.3; replaced K+ on 08/10: 4.2 (6) Sacral ulcer, resolved Healed Cont with offloading/cushioning/turning Continue frequent turning, protective ointment and skin checks. (7) History of coronary artery disease s/p cardiac stents on 06/13/15 Cont ASA 81mg via PEG daily Cont Coreg 3.125mg PEG BID Cont Plavix 75 mg PEG daily (8) Seizures Continue Keppra 500mg PEG BID for seizure prophylaxis Monitor for activity (9) Lower extremity edema Improved SCDs in place Pressure ulcer boots on b/l Continue to monitor (10) Prophylactic measure Pepcid 20 mg PEG BID Lovenox 40mg SC daily SCDs and offloading boots continue to turn and reposition q2hrs Continue to monitor medication administrations and clinical presentation weekly labs. vasoline ointment applied to feet prn to prevent hyperkeratosis Please hold feeding from 10pm-6am, placed into nursing communication Vitamin A & D for lips There is no update at this time. <Jeison Moore - Last Filed: 10/31/17 13:51> Objective - Vital Signs/Intake and Output Vital Signs (last 24 hours): Temp Pulse Resp BP Pulse Ox 98.2 F 65 20 109/70 97 10/31/17 08:04 10/31/17 08:04 10/31/17 08:04 10/31/17 08:04 10/31/17 08:04 Intake and Output: 10/31/17 10/31/17 06:59 18:59 Intake Total 1300 Output Total 700 Balance 600 - Medications Medications: Current Medications Acetylcysteine (Acetylcysteine 20%) 4 ml INH RQ8 [facility] Last Admin: 10/31/17 07:29 Dose: Not Given Albuterol/Ipratropium (Duoneb 3 Mg/0.5 Mg (3 Ml) Ud) 3 ml INH RQ6 [facility] Last Admin: 10/31/17 13:11 Dose: 3 ml Aspirin (Aspirin Chewable) 81 mg PEG DAILY [facility] Last Admin: 10/31/17 10:14 Dose: 81 mg Carvedilol (Coreg) 3.125 mg PEG BID [facility] Last Admin: 10/31/17 10:14 Dose: 3.125 mg Enoxaparin Sodium (Lovenox) 40 mg SC DAILY [facility] Last Admin: 10/31/17 10:21 Dose: 40 mg Famotidine (Pepcid) 20 mg PEG DAILY [facility] Last Admin: 10/31/17 10:14 Dose: 20 mg Finasteride (Proscar) 5 mg PEG DAILY [facility] Last Admin: 10/31/17 10:38 Dose: 5 mg Levetiracetam (Keppra) 500 mg PEG BID [facility] Last Admin: 10/31/17 10:15 Dose: 500 mg Saccharomyces Boulardii (Florastor) 250 mg PEG DAILY [facility] Last Admin: 10/31/17 10:14 Dose: 250 mg Scopolamine (Transderm-Scop) 1 patch TD Q3D [facility] Last Admin: 10/24/17 04:27 Dose: 1 patch Tamsulosin HCl (Flomax) 0.4 mg PEG DAILY [facility] Last Admin: 10/31/17 10:15 Dose: 0.4 mg - Labs Labs: 10/28/17 06:40 10/28/17 07:59 PT 10.6 SECONDS (9.7-12.2) 11/24/15 14:10 INR 1.0 11/24/15 14:10 APTT 25 SECONDS (21-34) 11/24/15 14:10 Attending/Attestation - Attestation I have personally seen and examined this patient.: Yes I have fully participated in the care of the patient.: Yes I have reviewed all pertinent clinical information, including history, physical exam and plan: Yes
[2017-10-31] MEDS: Acetylcysteine 20% Inhal Soln (4ml) INH SCH ×3 (02:02→19:33)
[2017-10-31] MEDS: Albuterol-Ipratrop 3 mg / 0.5 (3 ml) UD INH SCH ×4 (02:02→19:33)
[2017-10-31] MEDS: Saccharomyces Boulardi 250 mg Cap PEG SCH (10:14)
[2017-10-31] MEDS: levETIRAcetam 100 mg/ml (5ml) Oral Syringe PEG SCH ×2 (10:15→18:42)
[2017-10-31] MEDS: Enoxaparin 40 mg Syringe SC SCH (10:21)
[2017-11-01] MEDS: Albuterol-Ipratrop 3 mg / 0.5 (3 ml) UD INH SCH ×4 (01:19→20:12)
[2017-11-01] MEDS: Acetylcysteine 20% Inhal Soln (4ml) INH SCH ×3 (01:19→20:12)
--- NOTE | 2017-11-01 01:21 | CP.PCM.PN ---
Subjective - Date & Time of Evaluation Date of Evaluation: 11/01/17 Time of Evaluation: 01:20 - Subjective Subjective: Medicine Progress Note for Dr. Moore Patient was seen and examined at bedside in no acute distress. Review of systems not obtained due to anoxic brain injury. Objective - Vital Signs/Intake and Output Vital Signs (last 24 hours): Temp Pulse Resp BP Pulse Ox 98.4 F 95 H 22 135/78 99 11/01/17 00:04 11/01/17 00:04 11/01/17 00:04 11/01/17 00:04 11/01/17 00:04 Intake and Output: 10/31/17 11/01/17 18:59 06:59 Intake Total 620 620 Output Total 300 250 Balance 320 370 - Medications Medications: Current Medications Acetylcysteine (Acetylcysteine 20%) 4 ml INH RQ8 [facility] Last Admin: 11/01/17 01:19 Dose: Not Given Albuterol/Ipratropium (Duoneb 3 Mg/0.5 Mg (3 Ml) Ud) 3 ml INH RQ6 [facility] Last Admin: 11/01/17 01:19 Dose: 3 ml Aspirin (Aspirin Chewable) 81 mg PEG DAILY [facility] Last Admin: 10/31/17 10:14 Dose: 81 mg Carvedilol (Coreg) 3.125 mg PEG BID [facility] Last Admin: 10/31/17 18:41 Dose: 3.125 mg Enoxaparin Sodium (Lovenox) 40 mg SC DAILY [facility] Last Admin: 10/31/17 10:21 Dose: 40 mg Famotidine (Pepcid) 20 mg PEG DAILY [facility] Last Admin: 10/31/17 10:14 Dose: 20 mg Finasteride (Proscar) 5 mg PEG DAILY [facility] Last Admin: 10/31/17 10:38 Dose: 5 mg Levetiracetam (Keppra) 500 mg PEG BID [facility] Last Admin: 10/31/17 18:42 Dose: 500 mg Saccharomyces Boulardii (Florastor) 250 mg PEG DAILY [facility] Last Admin: 10/31/17 10:14 Dose: 250 mg Scopolamine (Transderm-Scop) 1 patch TD Q3D [facility] Last Admin: 10/24/17 04:27 Dose: 1 patch Tamsulosin HCl (Flomax) 0.4 mg PEG DAILY [facility] Last Admin: 10/31/17 10:15 Dose: 0.4 mg - Labs Labs: 10/28/17 06:40 10/28/17 07:59 PT 10.6 SECONDS (9.7-12.2) 11/24/15 14:10 INR 1.0 11/24/15 14:10 APTT 25 SECONDS (21-34) 11/24/15 14:10 - Additional Findings Additional findings: - Head Exam Head Exam: ATRAUMATIC, NORMAL INSPECTION - Eye Exam Eye Exam: absent: EOMI, Normal appearance - ENT Exam ENT Exam: Mucous Membranes Moist - Neck Exam Additional comments: Trach in place - Respiratory Exam Respiratory Exam:Rhonchi. absent: Clear to Ausculation Bilateral (excessive mucous production), Respiratory Distress - Cardiovascular Exam Cardiovascular Exam: REGULAR RHYTHM, +S1, +S2 - GI/Abdominal Exam GI & Abdominal Exam: Distended, Soft, Hypoactive Bowel Sounds. absent: Firm, Mass Additional comments: PEG in place - Extremities Exam Extremities Exam: absent: Pedal Edema - Neurological Exam Neurological Exam: Altered. absent: Alert, Awake, Oriented x3 - Psychiatric Exam Psychiatric exam: Flat Affect. absent: Normal Affect, Normal Mood - Skin Skin Exam: Dry, Intact, Normal Color, Warm; no sacral ulcers noted Assessment and Plan (1) Anoxic encephalopathy Status: Chronic (2) Respiratory failure Status: Chronic (3) UTI (urinary tract infection) Status: Resolved (4) Urinary retention Status: Acute (5) Hypokalemia Status: Acute (6) Sacral ulcer Status: Resolved (7) History of coronary artery disease Status: Acute (8) Seizures Status: Acute (9) Lower extremity edema Status: Acute - Assessment and Plan (Free Text) Plan: (1) Anoxic encephalopathy s/p cardiac arrest in 05/2015 no acute changes Pt has non spontaneous movements. Continue tube feeds- goal of 60ml/hr, feedings held at night due to fluid overload--> tube feeds 12h (2) Respiratory failure Trach in place, continue daily monitoring for secretions. No change in management at this time. Continue with aggressive suctioning multiple times a day per respiratory therapist. Monitor for signs of respiratory distress Thick secretions Duoneb 3ml INH Q6 and Mucomyst 4ml INH Q8H Scopolamine 1 patch TD Q3D [facility] Repeat CXR on 05/28/17: linear increased consolidative changes in the right mid- lung zone and left lung base which may represent atelectasis and/or infiltrate. Questionable trace left pleural effusion. moderate venous congestion. cardiomegaly. degenerative changes in the spine and shoulders Repeat CXR 09/28/17: no active disease; no change from previous CXR. (3) UTI Leukocytosis secondary to UTI. Resolved 10/19/17: afebrile, WBC within normal range 10/12: afebrile, WBC within normal range 08/10: WBC 8.2 afebrile Meropenem (started 07/22) - per Dr. Armstrong continue for a total of 2 weeks - Discontinued 08/05/17 ID consult: Dr. Armstrong --> help appreciated (4) Urinary retention 10/12: Condom baker in place; continue to monitor 07/21: NS stopped because tube feeds restarted 07/20: Urine dark in color, monitor, continue NS at 50 ml per hour 07/07/17: Catheter flushed, patient output approx. 500mL within one hour post flush. 06/27/17: Continue bladder massages to aid in voiding. 06/25/17: Patient voids with movement. Continue bladder massages to aid in voiding. 06/23/17: Patient will need to have daily bladder massage to allow for complete voiding 06/17/17: Nursing communication placed in: straight catherization with bladder scan> 100ml 06/08: urinary retention yesterday, was given 40mg lasix iv and patient was able to urinate through condom baker Take note condom cath not always securely in place so Is and Os are approximate as patient does wet bed Ordered- new condom catheter on 05/22/17 Flomax 0.4mg PEG daily Proscar 5mg PEG daily continue Bethanecol 50mg PEG TID- started after persistent retention and found to be effective. monitor I's and O's Check bladder scan for residual urine three times weekly (5) Hypokalemia 10/28: 3.4; given 40mEq via PEG 10/12: K+ was 3.3; replaced K+ on 08/10: 4.2 (6) Sacral ulcer, resolved Healed Cont with offloading/cushioning/turning Continue frequent turning, protective ointment and skin checks. (7) History of coronary artery disease s/p cardiac stents on 06/13/15 Cont ASA 81mg via PEG daily Cont Coreg 3.125mg PEG BID Cont Plavix 75 mg PEG daily (8) Seizures Continue Keppra 500mg PEG BID for seizure prophylaxis Monitor for activity (9) Lower extremity edema Improved SCDs in place Pressure ulcer boots on b/l Continue to monitor (10) Prophylactic measure Pepcid 20 mg PEG BID Lovenox 40mg SC daily SCDs and offloading boots continue to turn and reposition q2hrs Continue to monitor medication administrations and clinical presentation weekly labs. vasoline ointment applied to feet prn to prevent hyperkeratosis Please hold feeding from 10pm-6am, placed into nursing communication Vitamin A & D for lips There is no update at this time.
[2017-11-01] MEDS: Enoxaparin 40 mg Syringe SC SCH ×2 (11:07→11:08)
[2017-11-01] MEDS: levETIRAcetam 100 mg/ml (5ml) Oral Syringe PEG SCH ×2 (11:07→18:30)
[2017-11-01] MEDS: Saccharomyces Boulardi 250 mg Cap PEG SCH (11:08)
[2017-11-02] MEDS: Acetylcysteine 20% Inhal Soln (4ml) INH SCH ×4 (00:31→20:37)
[2017-11-02] MEDS: Albuterol-Ipratrop 3 mg / 0.5 (3 ml) UD INH SCH ×4 (01:02→20:37)
--- NOTE | 2017-11-02 07:11 | CP.PCM.PN ---
Subjective - Date & Time of Evaluation Date of Evaluation: 11/02/17 Time of Evaluation: 07:11 - Subjective Subjective: Medicine Progress Note for Dr. Chavis Patient was seen and examined at bedside in no acute distress. Review of systems not obtained due to anoxic brain injury. Objective - Vital Signs/Intake and Output Vital Signs (last 24 hours): Temp Pulse Resp BP Pulse Ox 98.4 F 74 20 114/80 100 11/01/17 23:58 11/01/17 23:58 11/01/17 23:58 11/01/17 23:58 11/01/17 23:58 Intake and Output: 11/02/17 11/02/17 06:59 18:59 Intake Total 1040 Output Total 800 Balance 240 - Medications Medications: Current Medications Acetylcysteine (Acetylcysteine 20%) 4 ml INH RQ8 [facility] Last Admin: 11/02/17 00:31 Dose: Not Given Albuterol/Ipratropium (Duoneb 3 Mg/0.5 Mg (3 Ml) Ud) 3 ml INH RQ6 [facility] Last Admin: 11/02/17 01:02 Dose: 3 ml Aspirin (Aspirin Chewable) 81 mg PEG DAILY [facility] Last Admin: 11/01/17 11:08 Dose: 81 mg Carvedilol (Coreg) 3.125 mg PEG BID [facility] Last Admin: 11/01/17 18:30 Dose: 3.125 mg Enoxaparin Sodium (Lovenox) 40 mg SC DAILY [facility] Last Admin: 11/01/17 11:08 Dose: 40 mg Famotidine (Pepcid) 20 mg PEG DAILY [facility] Last Admin: 11/01/17 11:08 Dose: 20 mg Finasteride (Proscar) 5 mg PEG DAILY [facility] Last Admin: 11/01/17 11:08 Dose: 5 mg Levetiracetam (Keppra) 500 mg PEG BID [facility] Last Admin: 11/01/17 18:30 Dose: 500 mg Saccharomyces Boulardii (Florastor) 250 mg PEG DAILY [facility] Last Admin: 11/01/17 11:08 Dose: 250 mg Scopolamine (Transderm-Scop) 1 patch TD Q3D [facility] Tamsulosin HCl (Flomax) 0.4 mg PEG DAILY [facility] Last Admin: 11/01/17 11:08 Dose: 0.4 mg - Labs Labs: 10/28/17 06:40 10/28/17 07:59 PT 10.6 SECONDS (9.7-12.2) 11/24/15 14:10 INR 1.0 11/24/15 14:10 APTT 25 SECONDS (21-34) 11/24/15 14:10 - Additional Findings Additional findings: - Head Exam Head Exam: ATRAUMATIC, NORMAL INSPECTION - Eye Exam Eye Exam: absent: EOMI, Normal appearance - ENT Exam ENT Exam: Mucous Membranes Moist - Neck Exam Additional comments: Trach in place - Respiratory Exam Respiratory Exam:Rhonchi. absent: Clear to Ausculation Bilateral (excessive mucous production- improving), Respiratory Distress - Cardiovascular Exam Cardiovascular Exam: REGULAR RHYTHM, +S1, +S2 - GI/Abdominal Exam GI & Abdominal Exam: Distended, Soft, Hypoactive Bowel Sounds. absent: Firm, Mass Additional comments: PEG in place - Extremities Exam Extremities Exam: absent: Pedal Edema - Neurological Exam Neurological Exam: Altered. absent: Alert, Awake, Oriented x3 - Psychiatric Exam Psychiatric exam: Flat Affect. absent: Normal Affect, Normal Mood - Skin Skin Exam: Dry, Intact, Normal Color, Warm; no sacral ulcers noted Assessment and Plan (1) Anoxic encephalopathy Status: Chronic (2) Respiratory failure Status: Chronic (3) UTI (urinary tract infection) Status: Resolved (4) Urinary retention Status: Acute (5) Hypokalemia Status: Acute (6) Sacral ulcer Status: Resolved (7) History of coronary artery disease Status: Acute (8) Seizures Status: Acute (9) Lower extremity edema Status: Acute - Assessment and Plan (Free Text) Plan: (1) Anoxic encephalopathy s/p cardiac arrest in 05/2015 no acute changes Pt has non spontaneous movements. Continue tube feeds- goal of 60ml/hr, feedings held at night due to fluid overload--> tube feeds 12h (2) Respiratory failure Trach in place, continue daily monitoring for secretions. No change in management at this time. Continue with aggressive suctioning multiple times a day per respiratory therapist. Monitor for signs of respiratory distress Thick secretions Duoneb 3ml INH Q6 and Mucomyst 4ml INH Q8H Scopolamine 1 patch TD Q3D [facility] Repeat CXR on 05/28/17: linear increased consolidative changes in the right mid- lung zone and left lung base which may represent atelectasis and/or infiltrate. Questionable trace left pleural effusion. moderate venous congestion. cardiomegaly. degenerative changes in the spine and shoulders Repeat CXR 09/28/17: no active disease; no change from previous CXR. (3) UTI Leukocytosis secondary to UTI. Resolved 11/02: WBC within normal range 10/19/17: afebrile, WBC within normal range 10/12: afebrile, WBC within normal range 08/10: WBC 8.2 afebrile Meropenem (started 07/22) - per Dr. Armstrong continue for a total of 2 weeks - Discontinued 08/05/17 ID consult: Dr. Armstrong --> help appreciated (4) Urinary retention 10/12: Condom baker in place; continue to monitor 07/21: NS stopped because tube feeds restarted 07/20: Urine dark in color, monitor, continue NS at 50 ml per hour 07/07/17: Catheter flushed, patient output approx. 500mL within one hour post flush. 06/27/17: Continue bladder massages to aid in voiding. 06/25/17: Patient voids with movement. Continue bladder massages to aid in voiding. 06/23/17: Patient will need to have daily bladder massage to allow for complete voiding 06/17/17: Nursing communication placed in: straight catherization with bladder scan> 100ml 06/08: urinary retention yesterday, was given 40mg lasix iv and patient was able to urinate through condom baker Take note condom cath not always securely in place so Is and Os are approximate as patient does wet bed Ordered- new condom catheter on 05/22/17 Flomax 0.4mg PEG daily Proscar 5mg PEG daily continue Bethanecol 50mg PEG TID- started after persistent retention and found to be effective. monitor I's and O's Check bladder scan for residual urine three times weekly (5) Hypokalemia 11/02: 3.5; given 20mEq via peg 10/28: 3.4; given 40mEq via PEG 10/12: K+ was 3.3; replaced K+ on 08/10: 4.2 (6) Sacral ulcer, resolved Healed Cont with offloading/cushioning/turning Continue frequent turning, protective ointment and skin checks. (7) History of coronary artery disease s/p cardiac stents on 06/13/15 Cont ASA 81mg via PEG daily Cont Coreg 3.125mg PEG BID Cont Plavix 75 mg PEG daily (8) Seizures Continue Keppra 500mg PEG BID for seizure prophylaxis Monitor for activity (9) Lower extremity edema Improved SCDs in place Pressure ulcer boots on b/l Continue to monitor (10) Prophylactic measure Pepcid 20 mg PEG BID Lovenox 40mg SC daily SCDs and offloading boots continue to turn and reposition q2hrs Continue to monitor medication administrations and clinical presentation weekly labs. vasoline ointment applied to feet prn to prevent hyperkeratosis Please hold feeding from 10pm-6am, placed into nursing communication Vitamin A & D for lips There is no update at this time.
[2017-11-02 07:36] LABS: BASO # 0.1 K/uL (0.0-0.2); BASO % 0.6 % (0.0-2.0); EOS # 0.5 K/uL (0.0-0.7); EOS % 5.3 % (0.0-4.0); LYMPH % 33.5 % (20.0-40.0); MEAN CELL VOLUME 89.4 fL (80.0-94.0); MEAN CORPUSCULAR HEMOGLOBIN 29.7 pg (27.0-31.0); MEAN CORPUSCULAR HGB CONC 33.2 g/dL (33.0-37.0); MEAN PLATELET VOLUME 8.7 fL (7.2-11.7); MONO # 0.9 K/uL (0.0-0.8); NEUT # 4.5 K/uL (1.8-7.0); NEUT % 50.6 % (50.0-75.0); RBC 4.03 Mil/uL (4.40-5.90); RED CELL DISTRIBUTION WIDTH 15.1 % (11.5-14.5); WHITE BLOOD COUNT 8.9 K/uL (4.8-10.8)
[2017-11-02 08:05] LABS: ALB/GLOB RATIO 0.7 (1.0-2.1); ALBUMIN 3.5 g/dL (3.5-5.0); ALT/SGPT 86 U/L (21-72); AST/SGOT 38 U/L (17-59); BLOOD UREA NITROGEN 12 mg/dL (9-20); CALCIUM 8.2 mg/dl (8.6-10.4); GFR NON-AFRICAN AMERICAN > 60
[2017-11-02] MEDS: Enoxaparin 40 mg Syringe SC SCH (09:12)
[2017-11-02] MEDS: Saccharomyces Boulardi 250 mg Cap PEG SCH (09:12)
[2017-11-02] MEDS: levETIRAcetam 100 mg/ml (5ml) Oral Syringe PEG SCH ×2 (09:12→18:24)
[2017-11-02 11:17] LABS: BASO % 0.5 % (0.0-2.0); EOS # 0.5 K/uL (0.0-0.7); HEMOGLOBIN 11.7 g/dL (12.0-18.0); LYMPH # 3.1 K/uL (1.0-4.3); LYMPH % 33.1 % (20.0-40.0); MEAN CELL VOLUME 89.2 fL (80.0-94.0); MEAN CORPUSCULAR HEMOGLOBIN 29.3 pg (27.0-31.0); MEAN CORPUSCULAR HGB CONC 32.8 g/dL (33.0-37.0); MEAN PLATELET VOLUME 8.9 fL (7.2-11.7); MONO # 0.8 K/uL (0.0-0.8); MONO % 8.7 % (0.0-10.0); NEUT % 52.7 % (50.0-75.0); NRBC % 0.1 % (0.0-2.0); RED CELL DISTRIBUTION WIDTH 15.3 % (11.5-14.5); WHITE BLOOD COUNT 9.4 K/uL (4.8-10.8)
[2017-11-02 11:32] LABS: ALB/GLOB RATIO 0.9 (1.0-2.1); ALBUMIN 3.5 g/dL (3.5-5.0); ALT/SGPT 71 U/L (21-72); AST/SGOT 32 U/L (17-59); BLOOD UREA NITROGEN 11 mg/dL (9-20); CALCIUM 8.1 mg/dl (8.6-10.4); GFR NON-AFRICAN AMERICAN > 60
[2017-11-03] MEDS: Albuterol-Ipratrop 3 mg / 0.5 (3 ml) UD INH SCH ×4 (01:47→19:23)
[2017-11-03] MEDS: Acetylcysteine 20% Inhal Soln (4ml) INH SCH ×4 (01:48→19:22)
--- NOTE | 2017-11-03 09:49 | CP.PCM.PN ---
<Vesna Turpin - Last Filed: 11/03/17 11:30> Subjective - Date & Time of Evaluation Date of Evaluation: 11/03/17 Time of Evaluation: 09:49 - Subjective Subjective: Medicine Progress Note for Dr. Chavis Patient was seen and examined at bedside in no acute distress. Review of systems not obtained due to anoxic brain injury. Objective - Vital Signs/Intake and Output Vital Signs (last 24 hours): Temp Pulse Resp BP Pulse Ox 97.9 F 83 20 105/70 98 11/03/17 07:47 11/03/17 07:47 11/03/17 07:47 11/03/17 07:47 11/03/17 07:47 Intake and Output: 11/03/17 11/03/17 06:59 18:59 Intake Total 620 340 Output Total 400 300 Balance 220 40 - Medications Medications: Current Medications Acetylcysteine (Acetylcysteine 20%) 4 ml INH RQ6 [facility] Last Admin: 11/03/17 07:43 Dose: Not Given Albuterol/Ipratropium (Duoneb 3 Mg/0.5 Mg (3 Ml) Ud) 3 ml INH RQ6 [facility] Last Admin: 11/03/17 07:43 Dose: 3 ml Aspirin (Aspirin Chewable) 81 mg PEG DAILY [facility] Last Admin: 11/02/17 09:13 Dose: 81 mg Carvedilol (Coreg) 3.125 mg PEG BID [facility] Last Admin: 11/02/17 18:24 Dose: 3.125 mg Enoxaparin Sodium (Lovenox) 40 mg SC DAILY [facility] Last Admin: 11/02/17 09:12 Dose: 40 mg Famotidine (Pepcid) 20 mg PEG DAILY [facility] Last Admin: 11/02/17 09:11 Dose: 20 mg Finasteride (Proscar) 5 mg PEG DAILY [facility] Last Admin: 11/02/17 09:11 Dose: 5 mg Levetiracetam (Keppra) 500 mg PEG BID [facility] Last Admin: 11/02/17 18:24 Dose: 500 mg Saccharomyces Boulardii (Florastor) 250 mg PEG DAILY [facility] Last Admin: 11/02/17 09:12 Dose: 250 mg Scopolamine (Transderm-Scop) 1 patch TD Q3D [facility] Last Admin: 11/02/17 09:24 Dose: 1 patch Tamsulosin HCl (Flomax) 0.4 mg PEG DAILY [facility] Last Admin: 11/02/17 09:12 Dose: 0.4 mg - Labs Labs: 11/02/17 11:08 11/02/17 11:08 PT 10.6 SECONDS (9.7-12.2) 11/24/15 14:10 INR 1.0 11/24/15 14:10 APTT 25 SECONDS (21-34) 11/24/15 14:10 - Additional Findings Additional findings: - Head Exam Head Exam: ATRAUMATIC, NORMAL INSPECTION - Eye Exam Eye Exam: absent: EOMI, Normal appearance - ENT Exam ENT Exam: Mucous Membranes Moist - Neck Exam Additional comments: Trach in place - Respiratory Exam Respiratory Exam:Rhonchi. absent: Clear to Ausculation Bilateral (excessive mucous production), Respiratory Distress - Cardiovascular Exam Cardiovascular Exam: REGULAR RHYTHM, +S1, +S2 - GI/Abdominal Exam GI & Abdominal Exam: Distended, Soft, Hypoactive Bowel Sounds. absent: Firm, Mass Additional comments: PEG in place - Extremities Exam Extremities Exam: absent: Pedal Edema - Neurological Exam Neurological Exam: Altered. absent: Alert, Awake, Oriented x3 - Psychiatric Exam Psychiatric exam: Flat Affect. absent: Normal Affect, Normal Mood - Skin Skin Exam: Dry, Intact, Normal Color, Warm; no sacral ulcers noted Assessment and Plan (1) Anoxic encephalopathy Status: Chronic (2) Respiratory failure Status: Chronic (3) UTI (urinary tract infection) Status: Resolved (4) Urinary retention Status: Acute (5) Hypokalemia Status: Acute (6) Sacral ulcer Status: Resolved (7) History of coronary artery disease Status: Acute (8) Seizures Status: Acute (9) Lower extremity edema Status: Acute - Assessment and Plan (Free Text) Plan: (1) Anoxic encephalopathy s/p cardiac arrest in 05/2015 no acute changes Pt has non spontaneous movements. Continue tube feeds- goal of 60ml/hr, feedings held at night due to fluid overload--> tube feeds 12h (2) Respiratory failure Trach in place, continue daily monitoring for secretions. No change in management at this time. Continue with aggressive suctioning multiple times a day per respiratory therapist. Monitor for signs of respiratory distress Thick secretions Duoneb 3ml INH Q6 and Mucomyst 4ml INH Q8H Scopolamine 1 patch TD Q3D JOO Repeat CXR on 05/28/17: linear increased consolidative changes in the right mid- lung zone and left lung base which may represent atelectasis and/or infiltrate. Questionable trace left pleural effusion. moderate venous congestion. cardiomegaly. degenerative changes in the spine and shoulders Repeat CXR 09/28/17: no active disease; no change from previous CXR. (3) UTI Leukocytosis secondary to UTI. Resolved 11/02: WBC within normal range 10/19/17: afebrile, WBC within normal range 10/12: afebrile, WBC within normal range 08/10: WBC 8.2 afebrile Meropenem (started 07/22) - per Dr. Armstrong continue for a total of 2 weeks - Discontinued 08/05/17 ID consult: Dr. Armstrong --> help appreciated (4) Urinary retention 10/12: Condom baker in place; continue to monitor 07/21: NS stopped because tube feeds restarted 07/20: Urine dark in color, monitor, continue NS at 50 ml per hour 07/07/17: Catheter flushed, patient output approx. 500mL within one hour post flush. 06/27/17: Continue bladder massages to aid in voiding. 06/25/17: Patient voids with movement. Continue bladder massages to aid in voiding. 06/23/17: Patient will need to have daily bladder massage to allow for complete voiding 06/17/17: Nursing communication placed in: straight catherization with bladder scan> 100ml 06/08: urinary retention yesterday, was given 40mg lasix iv and patient was able to urinate through condom baker Take note condom cath not always securely in place so Is and Os are approximate as patient does wet bed Ordered- new condom catheter on 05/22/17 Flomax 0.4mg PEG daily Proscar 5mg PEG daily continue Bethanecol 50mg PEG TID- started after persistent retention and found to be effective. monitor I's and O's Check bladder scan for residual urine three times weekly (5) Hypokalemia 11/02: 3.5; given 20mEq via peg 10/28: 3.4; given 40mEq via PEG 10/12: K+ was 3.3; replaced K+ on 08/10: 4.2 (6) Sacral ulcer, resolved Healed Cont with offloading/cushioning/turning Continue frequent turning, protective ointment and skin checks. (7) History of coronary artery disease s/p cardiac stents on 06/13/15 Cont ASA 81mg via PEG daily Cont Coreg 3.125mg PEG BID Cont Plavix 75 mg PEG daily (8) Seizures Continue Keppra 500mg PEG BID for seizure prophylaxis Monitor for activity (9) Lower extremity edema Improved SCDs in place Pressure ulcer boots on b/l Continue to monitor (10) Prophylactic measure Pepcid 20 mg PEG BID Lovenox 40mg SC daily SCDs and offloading boots continue to turn and reposition q2hrs Continue to monitor medication administrations and clinical presentation weekly labs. vasoline ointment applied to feet prn to prevent hyperkeratosis Please hold feeding from 10pm-6am, placed into nursing communication Vitamin A & D for lips There is no update at this time. <Amandeep Chavis H - Last Filed: 11/03/17 13:14> Objective - Vital Signs/Intake and Output Vital Signs (last 24 hours): Temp Pulse Resp BP Pulse Ox 97.9 F 83 20 105/70 98 11/03/17 07:47 11/03/17 07:47 11/03/17 07:47 11/03/17 07:47 11/03/17 07:47 Intake and Output: 11/03/17 11/03/17 06:59 18:59 Intake Total 620 340 Output Total 400 300 Balance 220 40 - Medications Medications: Current Medications Acetylcysteine (Acetylcysteine 20%) 4 ml INH RQ6 [facility] Last Admin: 11/03/17 07:43 Dose: Not Given Albuterol/Ipratropium (Duoneb 3 Mg/0.5 Mg (3 Ml) Ud) 3 ml INH RQ6 [facility] Last Admin: 11/03/17 07:43 Dose: 3 ml Aspirin (Aspirin Chewable) 81 mg PEG DAILY [facility] Last Admin: 11/03/17 10:10 Dose: 81 mg Carvedilol (Coreg) 3.125 mg PEG BID [facility] Last Admin: 11/03/17 10:11 Dose: 3.125 mg Enoxaparin Sodium (Lovenox) 40 mg SC DAILY [facility] Last Admin: 11/03/17 10:12 Dose: 40 mg Famotidine (Pepcid) 20 mg PEG DAILY [facility] Last Admin: 11/03/17 10:12 Dose: 20 mg Finasteride (Proscar) 5 mg PEG DAILY [facility] Last Admin: 11/03/17 10:12 Dose: 5 mg Levetiracetam (Keppra) 500 mg PEG BID [facility] Last Admin: 11/03/17 10:12 Dose: 500 mg Saccharomyces Boulardii (Florastor) 250 mg PEG DAILY [facility] Last Admin: 11/03/17 10:11 Dose: 250 mg Scopolamine (Transderm-Scop) 1 patch TD Q3D [facility] Last Admin: 11/02/17 09:24 Dose: 1 patch Tamsulosin HCl (Flomax) 0.4 mg PEG DAILY [facility] Last Admin: 11/03/17 10:11 Dose: 0.4 mg - Labs Labs: 11/02/17 11:08 11/02/17 11:08 PT 10.6 SECONDS (9.7-12.2) 11/24/15 14:10 INR 1.0 11/24/15 14:10 APTT 25 SECONDS (21-34) 11/24/15 14:10 Assessment and Plan (1) Prophylactic measure Status: Acute (2) Anoxic encephalopathy Status: Chronic (3) STEMI (ST elevation myocardial infarction) Status: Acute (4) Cardiac arrest Status: Acute (5) Seizures Status: Acute (6) Respiratory failure Status: Chronic
[2017-11-03] MEDS: Saccharomyces Boulardi 250 mg Cap PEG SCH (10:11)
[2017-11-03] MEDS: levETIRAcetam 100 mg/ml (5ml) Oral Syringe PEG SCH ×2 (10:12→18:19)
[2017-11-03] MEDS: Enoxaparin 40 mg Syringe SC SCH (10:12)
[2017-11-04] MEDS: Albuterol-Ipratrop 3 mg / 0.5 (3 ml) UD INH SCH ×4 (00:27→20:20)
[2017-11-04] MEDS: Acetylcysteine 20% Inhal Soln (4ml) INH SCH ×3 (00:27→20:20)
--- NOTE | 2017-11-04 06:58 | CP.PCM.PN ---
Subjective - Date & Time of Evaluation Date of Evaluation: 11/04/17 Time of Evaluation: 06:58 - Subjective Subjective: Medicine Progress Note for Dr. Chavis Patient was seen and examined at bedside in no acute distress. Review of systems not obtained due to anoxic brain injury. Objective - Vital Signs/Intake and Output Vital Signs (last 24 hours): Temp Pulse Resp BP Pulse Ox 98.5 F 71 20 118/73 98 11/04/17 00:00 11/04/17 00:00 11/04/17 00:00 11/04/17 00:00 11/04/17 00:00 Intake and Output: 11/03/17 11/04/17 18:59 06:59 Intake Total 960 660 Output Total 420 650 Balance 540 10 - Medications Medications: Current Medications Acetylcysteine (Acetylcysteine 20%) 4 ml INH RQ6 [facility] Last Admin: 11/04/17 00:27 Dose: Not Given Albuterol/Ipratropium (Duoneb 3 Mg/0.5 Mg (3 Ml) Ud) 3 ml INH RQ6 [facility] Last Admin: 11/04/17 00:27 Dose: 3 ml Aspirin (Aspirin Chewable) 81 mg PEG DAILY [facility] Last Admin: 11/03/17 10:10 Dose: 81 mg Carvedilol (Coreg) 3.125 mg PEG BID [facility] Last Admin: 11/03/17 18:19 Dose: 3.125 mg Enoxaparin Sodium (Lovenox) 40 mg SC DAILY [facility] Last Admin: 11/03/17 10:12 Dose: 40 mg Famotidine (Pepcid) 20 mg PEG DAILY [facility] Last Admin: 11/03/17 10:12 Dose: 20 mg Finasteride (Proscar) 5 mg PEG DAILY [facility] Last Admin: 11/03/17 10:12 Dose: 5 mg Levetiracetam (Keppra) 500 mg PEG BID [facility] Last Admin: 11/03/17 18:19 Dose: 500 mg Saccharomyces Boulardii (Florastor) 250 mg PEG DAILY [facility] Last Admin: 11/03/17 10:11 Dose: 250 mg Scopolamine (Transderm-Scop) 1 patch TD Q3D [facility] Last Admin: 11/02/17 09:24 Dose: 1 patch Tamsulosin HCl (Flomax) 0.4 mg PEG DAILY [facility] Last Admin: 11/03/17 10:11 Dose: 0.4 mg - Labs Labs: 11/02/17 11:08 11/02/17 11:08 PT 10.6 SECONDS (9.7-12.2) 11/24/15 14:10 INR 1.0 11/24/15 14:10 APTT 25 SECONDS (21-34) 11/24/15 14:10 - Additional Findings Additional findings: - Head Exam Head Exam: ATRAUMATIC, NORMAL INSPECTION - Eye Exam Eye Exam: absent: EOMI, Normal appearance - ENT Exam ENT Exam: Mucous Membranes Moist - Neck Exam Additional comments: Trach in place - Respiratory Exam Respiratory Exam: Rhonchi. absent: Clear to Ausculation Bilateral (excessive mucous production- improved), Respiratory Distress - Cardiovascular Exam Cardiovascular Exam: REGULAR RHYTHM, +S1, +S2 - GI/Abdominal Exam GI & Abdominal Exam: Distended, Soft, Hypoactive Bowel Sounds. absent: Firm, Mass Additional comments: PEG in place - Extremities Exam Extremities Exam: absent: Pedal Edema - Neurological Exam Neurological Exam: Altered. absent: Alert, Awake, Oriented x3 - Psychiatric Exam Psychiatric exam: Flat Affect. absent: Normal Affect, Normal Mood - Skin Skin Exam: Dry, Intact, Normal Color, Warm; no sacral ulcers noted Assessment and Plan (1) Anoxic encephalopathy Status: Chronic (2) Respiratory failure Status: Chronic (3) UTI (urinary tract infection) Status: Resolved (4) Urinary retention Status: Acute (5) Hypokalemia Status: Acute (6) Sacral ulcer Status: Resolved (7) History of coronary artery disease Status: Acute (8) Seizures Status: Acute (9) Lower extremity edema Status: Acute - Assessment and Plan (Free Text) Plan: (1) Anoxic encephalopathy s/p cardiac arrest in 05/2015 no acute changes Pt has non spontaneous movements. Continue tube feeds- goal of 60ml/hr, feedings held at night due to fluid overload--> tube feeds 12h (2) Respiratory failure Trach in place, continue daily monitoring for secretions. No change in management at this time. Continue with aggressive suctioning multiple times a day per respiratory therapist. Monitor for signs of respiratory distress Thick secretions Duoneb 3ml INH Q6 and Mucomyst 4ml INH Q8H Scopolamine 1 patch TD Q3D [facility] Repeat CXR on 05/28/17: linear increased consolidative changes in the right mid- lung zone and left lung base which may represent atelectasis and/or infiltrate. Questionable trace left pleural effusion. moderate venous congestion. cardiomegaly. degenerative changes in the spine and shoulders Repeat CXR 09/28/17: no active disease; no change from previous CXR. (3) UTI Leukocytosis secondary to UTI. Resolved 11/02: WBC within normal range 10/19/17: afebrile, WBC within normal range 10/12: afebrile, WBC within normal range 08/10: WBC 8.2 afebrile Meropenem (started 07/22) - per Dr. Armstrong continue for a total of 2 weeks - Discontinued 08/05/17 ID consult: Dr. Armstrong --> help appreciated (4) Urinary retention 10/12: Condom baker in place; continue to monitor 07/21: NS stopped because tube feeds restarted 07/20: Urine dark in color, monitor, continue NS at 50 ml per hour 07/07/17: Catheter flushed, patient output approx. 500mL within one hour post flush. 06/27/17: Continue bladder massages to aid in voiding. 06/25/17: Patient voids with movement. Continue bladder massages to aid in voiding. 06/23/17: Patient will need to have daily bladder massage to allow for complete voiding 06/17/17: Nursing communication placed in: straight catherization with bladder scan> 100ml 06/08: urinary retention yesterday, was given 40mg lasix iv and patient was able to urinate through condom baker Take note condom cath not always securely in place so Is and Os are approximate as patient does wet bed Ordered- new condom catheter on 05/22/17 Flomax 0.4mg PEG daily Proscar 5mg PEG daily continue Bethanecol 50mg PEG TID- started after persistent retention and found to be effective. monitor I's and O's Check bladder scan for residual urine three times weekly (5) Hypokalemia 11/02: 3.5; given 20mEq via peg 10/28: 3.4; given 40mEq via PEG 10/12: K+ was 3.3; replaced K+ on 08/10: 4.2 (6) Sacral ulcer, resolved Healed Cont with offloading/cushioning/turning Continue frequent turning, protective ointment and skin checks. (7) History of coronary artery disease s/p cardiac stents on 06/13/15 Cont ASA 81mg via PEG daily Cont Coreg 3.125mg PEG BID Cont Plavix 75 mg PEG daily (8) Seizures Continue Keppra 500mg PEG BID for seizure prophylaxis Monitor for activity (9) Lower extremity edema Improved SCDs in place Pressure ulcer boots on b/l Continue to monitor (10) Prophylactic measure Pepcid 20 mg PEG BID Lovenox 40mg SC daily SCDs and offloading boots continue to turn and reposition q2hrs Continue to monitor medication administrations and clinical presentation weekly labs. vasoline ointment applied to feet prn to prevent hyperkeratosis Please hold feeding from 10pm-6am, placed into nursing communication Vitamin A & D for lips There is no update at this time.
[2017-11-04] MEDS: Saccharomyces Boulardi 250 mg Cap PEG SCH (09:16)
[2017-11-04] MEDS: levETIRAcetam 100 mg/ml (5ml) Oral Syringe PEG SCH ×2 (09:16→17:37)
[2017-11-04] MEDS: Enoxaparin 40 mg Syringe SC SCH (09:16)
[2017-11-05] MEDS: Acetylcysteine 20% Inhal Soln (4ml) INH SCH ×4 (01:53→20:11)
[2017-11-05] MEDS: Albuterol-Ipratrop 3 mg / 0.5 (3 ml) UD INH SCH ×4 (01:53→20:10)
--- NOTE | 2017-11-05 06:52 | CP.PCM.PN ---
Subjective - Date & Time of Evaluation Date of Evaluation: 11/05/17 Time of Evaluation: 06:51 - Subjective Subjective: Medicine Progress Note for Dr. Chavis Patient was seen and examined at bedside in no acute distress. Review of systems not obtained due to anoxic brain injury. Objective - Vital Signs/Intake and Output Vital Signs (last 24 hours): Temp Pulse Resp BP Pulse Ox 98.6 F 88 22 120/82 100 11/04/17 23:48 11/04/17 23:48 11/04/17 23:48 11/04/17 23:48 11/04/17 23:48 Intake and Output: 11/04/17 11/05/17 18:59 06:59 Intake Total 620 620 Output Total 200 400 Balance 420 220 - Medications Medications: Current Medications Acetylcysteine (Acetylcysteine 20%) 4 ml INH RQ6 [facility] Last Admin: 11/05/17 01:53 Dose: Not Given Albuterol/Ipratropium (Duoneb 3 Mg/0.5 Mg (3 Ml) Ud) 3 ml INH RQ6 [facility] Last Admin: 11/05/17 01:53 Dose: 3 ml Aspirin (Aspirin Chewable) 81 mg PEG DAILY [facility] Last Admin: 11/04/17 09:16 Dose: 81 mg Carvedilol (Coreg) 3.125 mg PEG BID [facility] Last Admin: 11/04/17 17:36 Dose: 3.125 mg Enoxaparin Sodium (Lovenox) 40 mg SC DAILY [facility] Last Admin: 11/04/17 09:16 Dose: 40 mg Famotidine (Pepcid) 20 mg PEG DAILY [facility] Last Admin: 11/04/17 09:16 Dose: 20 mg Finasteride (Proscar) 5 mg PEG DAILY [facility] Last Admin: 11/04/17 09:16 Dose: 5 mg Levetiracetam (Keppra) 500 mg PEG BID [facility] Last Admin: 11/04/17 17:37 Dose: 500 mg Saccharomyces Boulardii (Florastor) 250 mg PEG DAILY [facility] Last Admin: 11/04/17 09:16 Dose: 250 mg Scopolamine (Transderm-Scop) 1 patch TD Q3D [facility] Last Admin: 11/02/17 09:24 Dose: 1 patch Tamsulosin HCl (Flomax) 0.4 mg PEG DAILY [facility] Last Admin: 12/13/17 09:16 Dose: 0.4 mg - Labs Labs: 11/02/17 11:08 11/02/17 11:08 PT 10.6 SECONDS (9.7-12.2) 11/24/15 14:10 INR 1.0 11/24/15 14:10 APTT 25 SECONDS (21-34) 11/24/15 14:10 - Additional Findings Additional findings: - Head Exam Head Exam: ATRAUMATIC, NORMAL INSPECTION - Eye Exam Eye Exam: absent: EOMI, Normal appearance - ENT Exam ENT Exam: Mucous Membranes Moist - Neck Exam Additional comments: Trach in place - Respiratory Exam Respiratory Exam: Rhonchi. absent: Clear to Ausculation Bilateral (excessive mucous production- improved), Respiratory Distress - Cardiovascular Exam Cardiovascular Exam: REGULAR RHYTHM, +S1, +S2 - GI/Abdominal Exam GI & Abdominal Exam: Distended, Soft, Hypoactive Bowel Sounds. absent: Firm, Mass Additional comments: PEG in place - Extremities Exam Extremities Exam: absent: Pedal Edema - Neurological Exam Neurological Exam: Altered. absent: Alert, Awake, Oriented x3 - Psychiatric Exam Psychiatric exam: Flat Affect. absent: Normal Affect, Normal Mood - Skin Skin Exam: Dry, Intact, Normal Color, Warm; no sacral ulcers noted Assessment and Plan (1) Anoxic encephalopathy Status: Chronic (2) Respiratory failure Status: Chronic (3) UTI (urinary tract infection) Status: Resolved (4) Urinary retention Status: Acute (5) Hypokalemia Status: Acute (6) Sacral ulcer Status: Resolved (7) History of coronary artery disease Status: Acute (8) Seizures Status: Acute (9) Lower extremity edema Status: Acute - Assessment and Plan (Free Text) Plan: (1) Anoxic encephalopathy s/p cardiac arrest in 05/2015 no acute changes Pt has non spontaneous movements. Continue tube feeds- goal of 60ml/hr, feedings held at night due to fluid overload--> tube feeds 12h (2) Respiratory failure Trach in place, continue daily monitoring for secretions. No change in management at this time. Continue with aggressive suctioning multiple times a day per respiratory therapist. Monitor for signs of respiratory distress Thick secretions Duoneb 3ml INH Q6 and Mucomyst 4ml INH Q8H Scopolamine 1 patch TD Q3D [facility]OO Repeat CXR on 05/28/17: linear increased consolidative changes in the right mid- lung zone and left lung base which may represent atelectasis and/or infiltrate. Questionable trace left pleural effusion. moderate venous congestion. cardiomegaly. degenerative changes in the spine and shoulders Repeat CXR 09/28/17: no active disease; no change from previous CXR. (3) UTI Leukocytosis secondary to UTI. Resolved 11/02: WBC within normal range 10/19/17: afebrile, WBC within normal range 10/12: afebrile, WBC within normal range 08/10: WBC 8.2 afebrile Meropenem (started 07/22) - per Dr. Armstrong continue for a total of 2 weeks - Discontinued 08/05/17 ID consult: Dr. Armstrong --> help appreciated (4) Urinary retention 10/12: Condom baker in place; continue to monitor 07/21: NS stopped because tube feeds restarted 07/20: Urine dark in color, monitor, continue NS at 50 ml per hour 07/07/17: Catheter flushed, patient output approx. 500mL within one hour post flush. 06/27/17: Continue bladder massages to aid in voiding. 06/25/17: Patient voids with movement. Continue bladder massages to aid in voiding. 06/23/17: Patient will need to have daily bladder massage to allow for complete voiding 06/17/17: Nursing communication placed in: straight catherization with bladder scan> 100ml 06/08: urinary retention yesterday, was given 40mg lasix iv and patient was able to urinate through condom baker Take note condom cath not always securely in place so Is and Os are approximate as patient does wet bed Ordered- new condom catheter on 05/22/17 Flomax 0.4mg PEG daily Proscar 5mg PEG daily continue Bethanecol 50mg PEG TID- started after persistent retention and found to be effective. monitor I's and O's Check bladder scan for residual urine three times weekly (5) Hypokalemia 11/02: 3.5; given 20mEq via peg 10/28: 3.4; given 40mEq via PEG 10/12: K+ was 3.3; replaced K+ on 08/10: 4.2 (6) Sacral ulcer, resolved Healed Cont with offloading/cushioning/turning Continue frequent turning, protective ointment and skin checks. (7) History of coronary artery disease s/p cardiac stents on 06/13/15 Cont ASA 81mg via PEG daily Cont Coreg 3.125mg PEG BID Cont Plavix 75 mg PEG daily (8) Seizures Continue Keppra 500mg PEG BID for seizure prophylaxis Monitor for activity (9) Lower extremity edema Improved SCDs in place Pressure ulcer boots on b/l Continue to monitor (10) Prophylactic measure Pepcid 20 mg PEG BID Lovenox 40mg SC daily SCDs and offloading boots continue to turn and reposition q2hrs Continue to monitor medication administrations and clinical presentation weekly labs. vasoline ointment applied to feet prn to prevent hyperkeratosis Please hold feeding from 10pm-6am, placed into nursing communication Vitamin A & D for lips There is no update at this time.
[2017-11-05] MEDS: Saccharomyces Boulardi 250 mg Cap PEG SCH (09:13)
[2017-11-05] MEDS: levETIRAcetam 100 mg/ml (5ml) Oral Syringe PEG SCH ×2 (09:14→17:58)
[2017-11-05] MEDS: Enoxaparin 40 mg Syringe SC SCH (09:15)
[2017-11-06] MEDS: Albuterol-Ipratrop 3 mg / 0.5 (3 ml) UD INH SCH ×4 (01:26→19:43)
[2017-11-06] MEDS: Acetylcysteine 20% Inhal Soln (4ml) INH SCH ×4 (01:26→19:26)
--- NOTE | 2017-11-06 06:56 | CP.PCM.PN ---
Subjective - Date & Time of Evaluation Date of Evaluation: 11/06/17 Time of Evaluation: 06:56 - Subjective Subjective: Medicine Progress Note for Dr. Chavis Patient was seen and examined at bedside in no acute distress. Review of systems not obtained due to anoxic brain injury. Objective - Vital Signs/Intake and Output Vital Signs (last 24 hours): Temp Pulse Resp BP Pulse Ox 98.2 F 87 20 128/78 98 11/05/17 23:32 11/05/17 23:32 11/05/17 23:32 11/05/17 23:32 11/05/17 23:32 Intake and Output: 11/05/17 11/06/17 18:59 06:59 Intake Total 620 480 Output Total 180 350 Balance 440 130 - Medications Medications: Current Medications Acetylcysteine (Acetylcysteine 20%) 4 ml INH RQ6 [facility] Last Admin: 11/06/17 01:26 Dose: Not Given Albuterol/Ipratropium (Duoneb 3 Mg/0.5 Mg (3 Ml) Ud) 3 ml INH RQ6 [facility] Last Admin: 11/06/17 01:26 Dose: 3 ml Aspirin (Aspirin Chewable) 81 mg PEG DAILY [facility] Last Admin: 11/05/17 09:14 Dose: 81 mg Carvedilol (Coreg) 3.125 mg PEG BID [facility] Last Admin: 11/05/17 17:59 Dose: 3.125 mg Enoxaparin Sodium (Lovenox) 40 mg SC DAILY [facility] Last Admin: 11/05/17 09:15 Dose: 40 mg Famotidine (Pepcid) 20 mg PEG DAILY [facility] Last Admin: 11/05/17 09:15 Dose: 20 mg Finasteride (Proscar) 5 mg PEG DAILY [facility] Last Admin: 11/05/17 09:15 Dose: 5 mg Levetiracetam (Keppra) 500 mg PEG BID [facility] Last Admin: 11/05/17 17:58 Dose: 500 mg Saccharomyces Boulardii (Florastor) 250 mg PEG DAILY [facility] Last Admin: 11/05/17 09:13 Dose: 250 mg Scopolamine (Transderm-Scop) 1 patch TD Q3D [facility] Last Admin: 11/05/17 09:16 Dose: 1 patch Tamsulosin HCl (Flomax) 0.4 mg PEG DAILY [facility] Last Admin: 12/14/17 09:13 Dose: 0.4 mg - Labs Labs: 11/02/17 11:08 11/02/17 11:08 PT 10.6 SECONDS (9.7-12.2) 11/24/15 14:10 INR 1.0 11/24/15 14:10 APTT 25 SECONDS (21-34) 11/24/15 14:10 - Additional Findings Additional findings: - Head Exam Head Exam: ATRAUMATIC, NORMAL INSPECTION - Eye Exam Eye Exam: absent: EOMI, Normal appearance - ENT Exam ENT Exam: Mucous Membranes Moist - Neck Exam Additional comments: Trach in place - Respiratory Exam Respiratory Exam: Rhonchi. absent: Clear to Ausculation Bilateral (excessive mucous production- improved), Respiratory Distress - Cardiovascular Exam Cardiovascular Exam: REGULAR RHYTHM, +S1, +S2 - GI/Abdominal Exam GI & Abdominal Exam: Distended, Soft, Hypoactive Bowel Sounds. absent: Firm, Mass Additional comments: PEG in place - Extremities Exam Extremities Exam: absent: Pedal Edema - Neurological Exam Neurological Exam: Altered. absent: Alert, Awake, Oriented x3 - Psychiatric Exam Psychiatric exam: Flat Affect. absent: Normal Affect, Normal Mood - Skin Skin Exam: Dry, Intact, Normal Color, Warm; no sacral ulcers noted Assessment and Plan (1) Anoxic encephalopathy Status: Chronic (2) Respiratory failure Status: Chronic (3) UTI (urinary tract infection) Status: Resolved (4) Urinary retention Status: Acute (5) Hypokalemia Status: Acute (6) Sacral ulcer Status: Resolved (7) History of coronary artery disease Status: Acute (8) Seizures Status: Acute (9) Lower extremity edema Status: Acute - Assessment and Plan (Free Text) Plan: (1) Anoxic encephalopathy s/p cardiac arrest in 05/2015 no acute changes Pt has non spontaneous movements. Continue tube feeds- goal of 60ml/hr, feedings held at night due to fluid overload--> tube feeds 12h (2) Respiratory failure Trach in place, continue daily monitoring for secretions. No change in management at this time. Continue with aggressive suctioning multiple times a day per respiratory therapist. Monitor for signs of respiratory distress Thick secretions Duoneb 3ml INH Q6 and Mucomyst 4ml INH Q8H Scopolamine 1 patch TD Q3D [facility] Repeat CXR on 05/28/17: linear increased consolidative changes in the right mid- lung zone and left lung base which may represent atelectasis and/or infiltrate. Questionable trace left pleural effusion. moderate venous congestion. cardiomegaly. degenerative changes in the spine and shoulders Repeat CXR 09/28/17: no active disease; no change from previous CXR. (3) UTI Leukocytosis secondary to UTI. Resolved 11/02: WBC within normal range 10/19/17: afebrile, WBC within normal range 10/12: afebrile, WBC within normal range 08/10: WBC 8.2 afebrile Meropenem (started 07/22) - per Dr. Armstrong continue for a total of 2 weeks - Discontinued 08/05/17 ID consult: Dr. Armstrong --> help appreciated (4) Urinary retention 10/12: Condom baker in place; continue to monitor 07/21: NS stopped because tube feeds restarted 07/20: Urine dark in color, monitor, continue NS at 50 ml per hour 07/07/17: Catheter flushed, patient output approx. 500mL within one hour post flush. 06/27/17: Continue bladder massages to aid in voiding. 06/25/17: Patient voids with movement. Continue bladder massages to aid in voiding. 06/23/17: Patient will need to have daily bladder massage to allow for complete voiding 06/17/17: Nursing communication placed in: straight catherization with bladder scan> 100ml 06/08: urinary retention yesterday, was given 40mg lasix iv and patient was able to urinate through condom baker Take note condom cath not always securely in place so Is and Os are approximate as patient does wet bed Ordered- new condom catheter on 05/22/17 Flomax 0.4mg PEG daily Proscar 5mg PEG daily continue Bethanecol 50mg PEG TID- started after persistent retention and found to be effective. monitor I's and O's Check bladder scan for residual urine three times weekly (5) Hypokalemia 11/02: 3.5; given 20mEq via peg 10/28: 3.4; given 40mEq via PEG 10/12: K+ was 3.3; replaced K+ on 08/10: 4.2 (6) Sacral ulcer, resolved Healed Cont with offloading/cushioning/turning Continue frequent turning, protective ointment and skin checks. (7) History of coronary artery disease s/p cardiac stents on 06/13/15 Cont ASA 81mg via PEG daily Cont Coreg 3.125mg PEG BID Cont Plavix 75 mg PEG daily (8) Seizures Continue Keppra 500mg PEG BID for seizure prophylaxis Monitor for activity (9) Lower extremity edema Improved SCDs in place Pressure ulcer boots on b/l Continue to monitor (10) Prophylactic measure Pepcid 20 mg PEG BID Lovenox 40mg SC daily SCDs and offloading boots continue to turn and reposition q2hrs Continue to monitor medication administrations and clinical presentation weekly labs. vasoline ointment applied to feet prn to prevent hyperkeratosis Please hold feeding from 10pm-6am, placed into nursing communication Vitamin A & D for lips There is no update at this time.
[2017-11-06] MEDS: levETIRAcetam 100 mg/ml (5ml) Oral Syringe PEG SCH ×2 (10:28→17:35)
[2017-11-06] MEDS: Saccharomyces Boulardi 250 mg Cap PEG SCH (10:28)
[2017-11-06] MEDS: Enoxaparin 40 mg Syringe SC SCH (10:28)
--- NOTE | 2017-11-07 00:53 | CP.PCM.PN ---
<Sal Lay E - Last Filed: 11/07/17 00:51> Subjective - Date & Time of Evaluation Date of Evaluation: 11/07/17 Time of Evaluation: 00:55 - Subjective Subjective: Medicine Hospitalist Service Note ---> Dr. Chavis's service Patient was seen and examined at bedside in no acute distress. Patient is unchanged clinically. Unable to evaluate review of systems due to anoxic brain injury. Objective - Vital Signs/Intake and Output Vital Signs (last 24 hours): Temp Pulse Resp BP Pulse Ox 98.4 F 89 20 127/82 98 11/06/17 23:36 11/06/17 23:36 11/06/17 23:36 11/06/17 23:36 11/06/17 23:36 Intake and Output: 11/06/17 11/07/17 18:59 06:59 Intake Total 620 Output Total 500 Balance 120 - Medications Medications: Current Medications Acetylcysteine (Acetylcysteine 20%) 4 ml INH RQ6 [facility] Last Admin: 11/06/17 19:26 Dose: Not Given Albuterol/Ipratropium (Duoneb 3 Mg/0.5 Mg (3 Ml) Ud) 3 ml INH RQ6 [facility] Last Admin: 11/06/17 19:43 Dose: 3 ml Aspirin (Aspirin Chewable) 81 mg PEG DAILY [facility] Last Admin: 11/06/17 10:28 Dose: 81 mg Carvedilol (Coreg) 3.125 mg PEG BID [facility] Last Admin: 11/06/17 17:34 Dose: 3.125 mg Enoxaparin Sodium (Lovenox) 40 mg SC DAILY [facility] Last Admin: 11/06/17 10:28 Dose: 40 mg Famotidine (Pepcid) 20 mg PEG DAILY [facility] Last Admin: 11/06/17 10:28 Dose: 20 mg Finasteride (Proscar) 5 mg PEG DAILY [facility] Last Admin: 11/06/17 10:28 Dose: 5 mg Levetiracetam (Keppra) 500 mg PEG BID [facility] Last Admin: 11/06/17 17:35 Dose: 500 mg Saccharomyces Boulardii (Florastor) 250 mg PEG DAILY [facility] Last Admin: 11/06/17 10:28 Dose: 250 mg Scopolamine (Transderm-Scop) 1 patch TD Q3D [facility] Last Admin: 11/05/17 09:16 Dose: 1 patch Tamsulosin HCl (Flomax) 0.4 mg PEG DAILY [facility] Last Admin: 11/06/17 10:28 Dose: 0.4 mg - Labs Labs: 11/02/17 11:08 11/02/17 11:08 PT 10.6 SECONDS (9.7-12.2) 11/24/15 14:10 INR 1.0 11/24/15 14:10 APTT 25 SECONDS (21-34) 11/24/15 14:10 - Constitutional Appears: No Acute Distress - Head Exam Head Exam: ATRAUMATIC - Eye Exam Eye Exam: absent: EOMI - ENT Exam ENT Exam: Mucous Membranes Moist - Respiratory Exam Respiratory Exam: Rhonchi, Respiratory Distress Additional comments: With tracheostomy - Cardiovascular Exam Cardiovascular Exam: REGULAR RHYTHM, +S1, +S2 - GI/Abdominal Exam GI & Abdominal Exam: Distended, Soft, Hypoactive Bowel Sounds - Extremities Exam Extremities Exam: absent: Pedal Edema - Neurological Exam Neurological Exam: absent: Alert, Awake, Oriented x3 - Psychiatric Exam Psychiatric exam: Flat Affect - Skin Skin Exam: Dry, Intact, Normal Color Assessment and Plan (1) Anoxic encephalopathy Assessment & Plan: s/p cardiac arrest in 05/2015 no acute changes Pt has non spontaneous movements. Continue tube feeds- goal of 60ml/hr, feedings held at night due to fluid overload--> tube feeds 12h Status: Chronic (2) Respiratory failure Assessment & Plan: Trach in place, continue daily monitoring for secretions. No change in management at this time. Continue with aggressive suctioning multiple times a day per respiratory therapist. Monitor for signs of respiratory distress Thick secretions Duoneb 3ml INH Q6 and Mucomyst 4ml INH Q8H Scopolamine 1 patch TD Q3D [facility] Repeat CXR on 05/28/17: linear increased consolidative changes in the right mid- lung zone and left lung base which may represent atelectasis and/or infiltrate. Questionable trace left pleural effusion. moderate venous congestion. cardiomegaly. degenerative changes in the spine and shoulders Repeat CXR 09/28/17: no active disease; no change from previous CXR. Status: Chronic (3) Urinary tract infection Assessment & Plan: Leukocytosis secondary to UTI. Resolved 11/02: WBC within normal range 10/19/17: afebrile, WBC within normal range 10/12: afebrile, WBC within normal range 08/10: WBC 8.2 afebrile Meropenem (started 07/22) - per Dr. Armstrong continue for a total of 2 weeks - Discontinued 08/05/17 ID consult: Dr. Armstrong --> help appreciated Status: Acute (4) Urinary retention Assessment & Plan: 10/12: Condom baker in place; continue to monitor 07/21: NS stopped because tube feeds restarted 07/20: Urine dark in color, monitor, continue NS at 50 ml per hour 07/07/17: Catheter flushed, patient output approx. 500mL within one hour post flush. 06/27/17: Continue bladder massages to aid in voiding. 06/25/17: Patient voids with movement. Continue bladder massages to aid in voiding. 06/23/17: Patient will need to have daily bladder massage to allow for complete voiding 06/17/17: Nursing communication placed in: straight catherization with bladder scan> 100ml 06/08: urinary retention yesterday, was given 40mg lasix iv and patient was able to urinate through condom baker Take note condom cath not always securely in place so Is and Os are approximate as patient does wet bed Ordered- new condom catheter on 05/22/17 Flomax 0.4mg PEG daily Proscar 5mg PEG daily continue Bethanecol 50mg PEG TID- started after persistent retention and found to be effective. monitor I's and O's Check bladder scan for residual urine three times weekly Status: Acute (5) Hypokalemia Assessment & Plan: 11/02: 3.5; given 20mEq via peg 10/28: 3.4; given 40mEq via PEG 10/12: K+ was 3.3; replaced K+ on 08/10: 4.2 Status: Acute (6) Sacral ulcer Assessment & Plan: Healed Cont with offloading/cushioning/turning Continue frequent turning, protective ointment and skin checks. Status: Resolved (7) History of coronary artery disease Assessment & Plan: s/p cardiac stents on 06/13/15 Cont ASA 81mg via PEG daily Cont Coreg 3.125mg PEG BID Cont Plavix 75 mg PEG daily Status: Acute (8) Seizures Assessment & Plan: Continue Keppra 500mg PEG BID for seizure prophylaxis Monitor for activity Status: Acute (9) Lower extremity edema Assessment & Plan: Improved SCDs in place Pressure ulcer boots on b/l Continue to monitor Status: Acute (10) Prophylactic measure Assessment & Plan: Pepcid 20 mg PEG BID Lovenox 40mg SC daily SCDs and offloading boots continue to turn and reposition q2hrs Continue to monitor medication administrations and clinical presentation weekly labs. vasoline ointment applied to feet prn to prevent hyperkeratosis Please hold feeding from 10pm-6am, placed into nursing communication Vitamin A & D for lips There is no update at this time. Status: Acute <ChavisAmandeep lópez H - Last Filed: 11/07/17 12:08> Objective - Vital Signs/Intake and Output Vital Signs (last 24 hours): Temp Pulse Resp BP Pulse Ox 98.8 F 84 20 100/66 99 11/07/17 07:44 11/07/17 07:44 11/07/17 07:44 11/07/17 07:44 11/07/17 07:44 Intake and Output: 11/07/17 11/07/17 06:59 18:59 Intake Total 340 Output Total 1000 Balance -660 - Medications Medications: Current Medications Acetylcysteine (Acetylcysteine 20%) 4 ml INH RQ6 [facility] Last Admin: 11/07/17 07:34 Dose: Not Given Albuterol/Ipratropium (Duoneb 3 Mg/0.5 Mg (3 Ml) Ud) 3 ml INH RQ6 [facility] Last Admin: 11/07/17 07:33 Dose: 3 ml Aspirin (Aspirin Chewable) 81 mg PEG DAILY [facility] Last Admin: 11/07/17 09:59 Dose: 81 mg Carvedilol (Coreg) 3.125 mg PEG BID [facility] Last Admin: 11/07/17 09:59 Dose: 3.125 mg Enoxaparin Sodium (Lovenox) 40 mg SC DAILY [facility] Last Admin: 11/07/17 10:02 Dose: 40 mg Famotidine (Pepcid) 20 mg PEG DAILY [facility] Last Admin: 11/07/17 10:00 Dose: 20 mg Finasteride (Proscar) 5 mg PEG DAILY [facility] Last Admin: 11/07/17 09:59 Dose: 5 mg Levetiracetam (Keppra) 500 mg PEG BID [facility] Last Admin: 11/07/17 10:00 Dose: 500 mg Saccharomyces Boulardii (Florastor) 250 mg PEG DAILY [facility] Last Admin: 11/07/17 09:59 Dose: 250 mg Scopolamine (Transderm-Scop) 1 patch TD Q3D [facility] Last Admin: 11/05/17 09:16 Dose: 1 patch Tamsulosin HCl (Flomax) 0.4 mg PEG DAILY [facility] Last Admin: 11/07/17 10:01 Dose: 0.4 mg - Labs Labs: 11/02/17 11:08 11/02/17 11:08 PT 10.6 SECONDS (9.7-12.2) 11/24/15 14:10 INR 1.0 11/24/15 14:10 APTT 25 SECONDS (21-34) 11/24/15 14:10 Assessment and Plan (1) Prophylactic measure Status: Acute (2) Anoxic encephalopathy Status: Chronic (3) STEMI (ST elevation myocardial infarction) Status: Acute (4) Cardiac arrest Status: Acute (5) Seizures Status: Acute (6) Respiratory failure Status: Chronic Attending/Attestation - Attestation I have personally seen and examined this patient.: Yes I have fully participated in the care of the patient.: Yes I have reviewed all pertinent clinical information, including history, physical exam and plan: Yes Notes (Text): 11/07/17 12:06 Medical Attending: Patient was seen and examined by me as well, agree with the above note by the resident The situation is not changed from before. He is non verbal and non responsive to stimuli thank you Amandeep Chavis
[2017-11-07] MEDS: Albuterol-Ipratrop 3 mg / 0.5 (3 ml) UD INH SCH ×4 (01:42→19:39)
[2017-11-07] MEDS: Acetylcysteine 20% Inhal Soln (4ml) INH SCH ×4 (01:43→19:39)
[2017-11-07] MEDS: Saccharomyces Boulardi 250 mg Cap PEG SCH (09:59)
[2017-11-07] MEDS: levETIRAcetam 100 mg/ml (5ml) Oral Syringe PEG SCH ×2 (10:00→18:03)
[2017-11-07] MEDS: Enoxaparin 40 mg Syringe SC SCH (10:02)
--- NOTE | 2017-11-08 00:47 | CP.PCM.PN ---
<Sal Lay E - Last Filed: 11/08/17 03:50> Subjective - Date & Time of Evaluation Date of Evaluation: 11/08/17 Time of Evaluation: 00:30 - Subjective Subjective: Medicine Hospitalist Service Note ---> Dr. Chavis's service Patient was seen and examined at bedside in no acute distress. Patient is unchanged clinically. Unable to evaluate review of systems due to anoxic brain injury. Objective - Vital Signs/Intake and Output Vital Signs (last 24 hours): Temp Pulse Resp BP Pulse Ox 97.1 F L 83 18 110/75 97 11/07/17 23:47 11/07/17 23:47 11/07/17 23:47 11/07/17 23:47 11/07/17 23:47 Intake and Output: 11/07/17 11/08/17 18:59 06:59 Intake Total 620 720 Output Total 300 450 Balance 320 270 - Medications Medications: Current Medications Acetylcysteine (Acetylcysteine 20%) 4 ml INH RQ6 [facility] Last Admin: 11/07/17 19:39 Dose: Not Given Albuterol/Ipratropium (Duoneb 3 Mg/0.5 Mg (3 Ml) Ud) 3 ml INH RQ6 [facility] Last Admin: 11/07/17 19:39 Dose: 3 ml Aspirin (Aspirin Chewable) 81 mg PEG DAILY [facility] Last Admin: 11/07/17 09:59 Dose: 81 mg Carvedilol (Coreg) 3.125 mg PEG BID [facility] Last Admin: 11/07/17 18:03 Dose: 3.125 mg Enoxaparin Sodium (Lovenox) 40 mg SC DAILY [facility] Last Admin: 11/07/17 10:02 Dose: 40 mg Famotidine (Pepcid) 20 mg PEG DAILY [facility] Last Admin: 11/07/17 10:00 Dose: 20 mg Finasteride (Proscar) 5 mg PEG DAILY [facility] Last Admin: 11/07/17 09:59 Dose: 5 mg Levetiracetam (Keppra) 500 mg PEG BID [facility] Last Admin: 11/07/17 18:03 Dose: 500 mg Saccharomyces Boulardii (Florastor) 250 mg PEG DAILY [facility] Last Admin: 11/07/17 09:59 Dose: 250 mg Scopolamine (Transderm-Scop) 1 patch TD Q3D [facility] Last Admin: 11/05/17 09:16 Dose: 1 patch Tamsulosin HCl (Flomax) 0.4 mg PEG DAILY [facility] Last Admin: 11/07/17 10:01 Dose: 0.4 mg - Labs Labs: 11/02/17 11:08 11/02/17 11:08 PT 10.6 SECONDS (9.7-12.2) 11/24/15 14:10 INR 1.0 11/24/15 14:10 APTT 25 SECONDS (21-34) 11/24/15 14:10 - Constitutional Appears: No Acute Distress - Eye Exam Eye Exam: absent: EOMI - ENT Exam ENT Exam: Mucous Membranes Moist - Respiratory Exam Respiratory Exam: Rhonchi Additional comments: With tracheostomy - Cardiovascular Exam Cardiovascular Exam: REGULAR RHYTHM, +S1, +S2 - GI/Abdominal Exam GI & Abdominal Exam: Distended, Soft, Hypoactive Bowel Sounds - Neurological Exam Neurological Exam: absent: Alert, Awake, Oriented x3 - Psychiatric Exam Psychiatric exam: Flat Affect - Skin Skin Exam: Dry, Intact, Normal Color Assessment and Plan (1) Anoxic encephalopathy Assessment & Plan: s/p cardiac arrest in 05/2015 no acute changes Pt has non spontaneous movements. Continue tube feeds- goal of 60ml/hr, feedings held at night due to fluid overload--> tube feeds 12h Status: Chronic (2) Respiratory failure Assessment & Plan: Trach in place, continue daily monitoring for secretions. No change in management at this time. Continue with aggressive suctioning multiple times a day per respiratory therapist. Monitor for signs of respiratory distress Thick secretions Duoneb 3ml INH Q6 and Mucomyst 4ml INH Q8H Scopolamine 1 patch TD Q3D [facility] Repeat CXR on 05/28/17: linear increased consolidative changes in the right mid- lung zone and left lung base which may represent atelectasis and/or infiltrate. Questionable trace left pleural effusion. moderate venous congestion. cardiomegaly. degenerative changes in the spine and shoulders Repeat CXR 09/28/17: no active disease; no change from previous CXR. Status: Chronic (3) Urinary tract infection Assessment & Plan: Leukocytosis secondary to UTI. Resolved 11/02: WBC within normal range 10/19/17: afebrile, WBC within normal range 10/12: afebrile, WBC within normal range 08/10: WBC 8.2 afebrile Meropenem (started 07/22) - per Dr. Armstrong continue for a total of 2 weeks - Discontinued 08/05/17 ID consult: Dr. Armstrong --> help appreciated Status: Acute (4) Urinary retention Assessment & Plan: 10/12: Condom baker in place; continue to monitor 07/21: NS stopped because tube feeds restarted 07/20: Urine dark in color, monitor, continue NS at 50 ml per hour 07/07/17: Catheter flushed, patient output approx. 500mL within one hour post flush. 06/27/17: Continue bladder massages to aid in voiding. 06/25/17: Patient voids with movement. Continue bladder massages to aid in voiding. 06/23/17: Patient will need to have daily bladder massage to allow for complete voiding 06/17/17: Nursing communication placed in: straight catherization with bladder scan> 100ml 06/08: urinary retention yesterday, was given 40mg lasix iv and patient was able to urinate through condom baker Take note condom cath not always securely in place so Is and Os are approximate as patient does wet bed Ordered- new condom catheter on 05/22/17 Flomax 0.4mg PEG daily Proscar 5mg PEG daily continue Bethanecol 50mg PEG TID- started after persistent retention and found to be effective. monitor I's and O's Check bladder scan for residual urine three times weekly Status: Acute (5) Hypokalemia Assessment & Plan: 11/02: 3.5; given 20mEq via peg 10/28: 3.4; given 40mEq via PEG 10/12: K+ was 3.3; replaced K+ on 08/10: 4.2 Monitor with weekly thursday labs Status: Acute (6) Sacral ulcer Assessment & Plan: Healed Cont with offloading/cushioning/turning Continue frequent turning, protective ointment and skin checks. Status: Resolved (7) History of coronary artery disease Assessment & Plan: s/p cardiac stents on 06/13/15 Cont ASA 81mg via PEG daily Cont Coreg 3.125mg PEG BID Cont Plavix 75 mg PEG daily Status: Acute (8) Seizures Assessment & Plan: Continue Keppra 500mg PEG BID for seizure prophylaxis Monitor for activity Status: Acute (9) Lower extremity edema Assessment & Plan: Improved SCDs in place Pressure ulcer boots on b/l Continue to monitor Status: Acute (10) Prophylactic measure Assessment & Plan: Pepcid 20 mg PEG BID Lovenox 40mg SC daily SCDs and offloading boots continue to turn and reposition q2hrs Continue to monitor medication administrations and clinical presentation weekly labs. vasoline ointment applied to feet prn to prevent hyperkeratosis Please hold feeding from 10pm-6am, placed into nursing communication Vitamin A & D for lips There is no update at this time. Status: Acute <PalmiraAmandeep H - Last Filed: 11/08/17 13:04> Objective - Vital Signs/Intake and Output Vital Signs (last 24 hours): Temp Pulse Resp BP Pulse Ox 97.7 F 67 20 127/78 99 11/08/17 07:56 11/08/17 07:56 11/08/17 07:56 11/08/17 07:56 11/08/17 07:56 Intake and Output: 11/08/17 11/08/17 06:59 18:59 Intake Total 1060 Output Total 950 Balance 110 - Medications Medications: Current Medications Acetylcysteine (Acetylcysteine 20%) 4 ml INH RQ6 [facility] Last Admin: 11/08/17 08:08 Dose: Not Given Albuterol/Ipratropium (Duoneb 3 Mg/0.5 Mg (3 Ml) Ud) 3 ml INH RQ6 [facility] Last Admin: 11/08/17 07:30 Dose: 3 ml Aspirin (Aspirin Chewable) 81 mg PEG DAILY [facility] Last Admin: 11/08/17 09:55 Dose: 81 mg Carvedilol (Coreg) 3.125 mg PEG BID [facility] Last Admin: 11/08/17 09:55 Dose: 3.125 mg Enoxaparin Sodium (Lovenox) 40 mg SC DAILY [facility] Last Admin: 11/08/17 09:54 Dose: 40 mg Famotidine (Pepcid) 20 mg PEG DAILY [facility] Last Admin: 11/08/17 09:57 Dose: 20 mg Finasteride (Proscar) 5 mg PEG DAILY [facility] Last Admin: 11/08/17 09:56 Dose: 5 mg Levetiracetam (Keppra) 500 mg PEG BID [facility] Last Admin: 11/08/17 09:56 Dose: 500 mg Saccharomyces Boulardii (Florastor) 250 mg PEG DAILY [facility] Last Admin: 11/08/17 09:56 Dose: 250 mg Scopolamine (Transderm-Scop) 1 patch TD Q3D [facility] Last Admin: 11/08/17 09:58 Dose: 1 patch Tamsulosin HCl (Flomax) 0.4 mg PEG DAILY [facility] Last Admin: 11/08/17 09:55 Dose: 0.4 mg - Labs Labs: 11/02/17 11:08 11/02/17 11:08 PT 10.6 SECONDS (9.7-12.2) 11/24/15 14:10 INR 1.0 11/24/15 14:10 APTT 25 SECONDS (21-34) 11/24/15 14:10 Assessment and Plan (1) Prophylactic measure Status: Acute (2) Anoxic encephalopathy Status: Chronic (3) STEMI (ST elevation myocardial infarction) Status: Acute (4) Cardiac arrest Status: Acute (5) Seizures Status: Acute (6) Respiratory failure Status: Chronic Attending/Attestation - Attestation I have personally seen and examined this patient.: Yes I have fully participated in the care of the patient.: Yes I have reviewed all pertinent clinical information, including history, physical exam and plan: Yes Notes (Text): 11/08/17 13:03 Medical attending: Patient was seen and examined by me briefly Today I spoke over the phone with Dr Brown who is doing an independent medical examination. And we spoke briefly about the case. Otherwise I have no other news to report. Situation not changed. thank you Amandeep Chavis
[2017-11-08] MEDS: Albuterol-Ipratrop 3 mg / 0.5 (3 ml) UD INH SCH ×4 (02:11→19:36)
[2017-11-08] MEDS: Acetylcysteine 20% Inhal Soln (4ml) INH SCH ×4 (02:12→19:35)
[2017-11-08] MEDS: Enoxaparin 40 mg Syringe SC SCH (09:54)
[2017-11-08] MEDS: levETIRAcetam 100 mg/ml (5ml) Oral Syringe PEG SCH ×2 (09:56→17:41)
[2017-11-08] MEDS: Saccharomyces Boulardi 250 mg Cap PEG SCH (09:56)
[2017-11-09] MEDS: Albuterol-Ipratrop 3 mg / 0.5 (3 ml) UD INH SCH ×2 (01:28→07:16)
[2017-11-09] MEDS: Acetylcysteine 20% Inhal Soln (4ml) INH SCH ×3 (01:28→14:00)
[2017-11-09 07:53] LABS: BASO # 0.1 K/uL (0.0-0.2); BASO % 0.8 % (0.0-2.0); EOS # 0.3 K/uL (0.0-0.7); EOS % 3.7 % (0.0-4.0); LYMPH # 2.6 K/uL (1.0-4.3); LYMPH % 34.3 % (20.0-40.0); MEAN CELL VOLUME 89.1 fL (80.0-94.0); MEAN CORPUSCULAR HEMOGLOBIN 29.6 pg (27.0-31.0); MEAN CORPUSCULAR HGB CONC 33.2 g/dL (33.0-37.0); MEAN PLATELET VOLUME 9.2 fL (7.2-11.7); MONO # 0.7 K/uL (0.0-0.8); MONO % 8.8 % (0.0-10.0); NEUT % 52.4 % (50.0-75.0); NRBC % 0.1 % (0.0-2.0); RBC 4.05 Mil/uL (4.40-5.90); RED CELL DISTRIBUTION WIDTH 15.1 % (11.5-14.5); WHITE BLOOD COUNT 7.7 K/uL (4.8-10.8)
[2017-11-09 08:22] LABS: ALB/GLOB RATIO 0.9 (1.0-2.1); ALBUMIN 3.6 g/dL (3.5-5.0); ALT/SGPT 74 U/L (21-72); AST/SGOT 30 U/L (17-59); BLOOD UREA NITROGEN 8 mg/dL (9-20); GFR NON-AFRICAN AMERICAN > 60
[2017-11-09] MEDS: Saccharomyces Boulardi 250 mg Cap PEG SCH (09:27)
[2017-11-09] MEDS: levETIRAcetam 100 mg/ml (5ml) Oral Syringe PEG SCH ×2 (09:28→17:28)
[2017-11-09] MEDS: Enoxaparin 40 mg Syringe SC SCH (09:28)
--- NOTE | 2017-11-09 09:55 | CP.PCM.PN ---
<Ben Martell R - Last Filed: 11/09/17 09:52> Subjective - Date & Time of Evaluation Date of Evaluation: 11/09/17 Time of Evaluation: 09:52 - Subjective Subjective: PGY-[address] Moore No acute events noted overnight. Patient was seen and examined at bedside in no acute distress. Patient is unchanged clinically. Unable to evaluate review of systems due to anoxic brain injury. Objective - Vital Signs/Intake and Output Vital Signs (last 24 hours): Temp Pulse Resp BP Pulse Ox 99.1 F 68 20 115/77 99 11/09/17 09:00 11/09/17 09:00 11/09/17 09:00 11/09/17 09:00 11/09/17 09:00 Intake and Output: 11/09/17 11/09/17 06:59 18:59 Intake Total 1560 Output Total 400 Balance 1160 - Medications Medications: Current Medications Acetylcysteine (Acetylcysteine 20%) 4 ml INH RQ6 [facility] Last Admin: 11/09/17 07:16 Dose: 4 ml Aspirin (Aspirin Chewable) 81 mg PEG DAILY [facility] Last Admin: 11/09/17 09:27 Dose: 81 mg Carvedilol (Coreg) 3.125 mg PEG BID [facility] Last Admin: 11/09/17 09:28 Dose: 3.125 mg Enoxaparin Sodium (Lovenox) 40 mg SC DAILY [facility] Last Admin: 11/09/17 09:28 Dose: 40 mg Famotidine (Pepcid) 20 mg PEG DAILY [facility] Last Admin: 11/09/17 09:28 Dose: 20 mg Finasteride (Proscar) 5 mg PEG DAILY [facility] Last Admin: 11/09/17 09:28 Dose: 5 mg Levetiracetam (Keppra) 500 mg PEG BID [facility] Last Admin: 11/09/17 09:28 Dose: 500 mg Saccharomyces Boulardii (Florastor) 250 mg PEG DAILY [facility] Last Admin: 11/09/17 09:27 Dose: 250 mg Scopolamine (Transderm-Scop) 1 patch TD Q3D [facility] Last Admin: 11/08/17 09:58 Dose: 1 patch Tamsulosin HCl (Flomax) 0.4 mg PEG DAILY [facility] Last Admin: 11/09/17 09:28 Dose: 0.4 mg - Labs Labs: 11/09/17 07:31 11/09/17 07:31 PT 10.6 SECONDS (9.7-12.2) 11/24/15 14:10 INR 1.0 11/24/15 14:10 APTT 25 SECONDS (21-34) 11/24/15 14:10 - Additional Findings Additional findings: - Head Exam Head Exam: ATRAUMATIC, NORMAL INSPECTION - Eye Exam Eye Exam: absent: EOMI, Normal appearance - ENT Exam ENT Exam: Mucous Membranes Moist - Neck Exam Additional comments: Trach in place - Respiratory Exam Respiratory Exam: Rhonchi. absent: Clear to Ausculation Bilateral (excessive mucous production- improved), Respiratory Distress - Cardiovascular Exam Cardiovascular Exam: REGULAR RHYTHM, +S1, +S2 - GI/Abdominal Exam GI & Abdominal Exam: Distended, Soft, Hypoactive Bowel Sounds. absent: Firm, Mass Additional comments: PEG in place - Extremities Exam Extremities Exam: absent: Pedal Edema - Neurological Exam Neurological Exam: Altered. absent: Alert, Awake, Oriented x3 - Psychiatric Exam Psychiatric exam: Flat Affect. absent: Normal Affect, Normal Mood - Skin Skin Exam: Dry, Intact, Normal Color, Warm; no sacral ulcers noted Assessment and Plan - Assessment and Plan (Free Text) Assessment: (1) Anoxic encephalopathy Assessment & Plan: s/p cardiac arrest in 05/2015 no acute changes Pt has non spontaneous movements. Continue tube feeds- goal of 60ml/hr, feedings held at night due to fluid overload--> tube feeds 12h Status: Chronic (2) Respiratory failure Assessment & Plan: Trach in place, continue daily monitoring for secretions. No change in management at this time. Continue with aggressive suctioning multiple times a day per respiratory therapist. Monitor for signs of respiratory distress Thick secretions Duoneb 3ml INH Q6 and Mucomyst 4ml INH Q8H Scopolamine 1 patch TD Q3D [facility] Repeat CXR on 05/28/17: linear increased consolidative changes in the right mid- lung zone and left lung base which may represent atelectasis and/or infiltrate. Questionable trace left pleural effusion. moderate venous congestion. cardiomegaly. degenerative changes in the spine and shoulders Repeat CXR 09/28/17: no active disease; no change from previous CXR. Status: Chronic (3) Urinary tract infection Assessment & Plan: Leukocytosis secondary to UTI. Resolved 11/02: WBC within normal range 10/19/17: afebrile, WBC within normal range 10/12: afebrile, WBC within normal range 08/10: WBC 8.2 afebrile Meropenem (started 07/22) - per Dr. Armstrong continue for a total of 2 weeks - Discontinued 08/05/17 ID consult: Dr. Armstrong --> help appreciated Status: Acute (4) Urinary retention Assessment & Plan: 10/12: Condom baker in place; continue to monitor 07/21: NS stopped because tube feeds restarted 07/20: Urine dark in color, monitor, continue NS at 50 ml per hour 07/07/17: Catheter flushed, patient output approx. 500mL within one hour post flush. 06/27/17: Continue bladder massages to aid in voiding. 06/25/17: Patient voids with movement. Continue bladder massages to aid in voiding. 06/23/17: Patient will need to have daily bladder massage to allow for complete voiding 06/17/17: Nursing communication placed in: straight catherization with bladder scan> 100ml 06/08: urinary retention yesterday, was given 40mg lasix iv and patient was able to urinate through condom baker Take note condom cath not always securely in place so Is and Os are approximate as patient does wet bed Ordered- new condom catheter on 05/22/17 Flomax 0.4mg PEG daily Proscar 5mg PEG daily continue Bethanecol 50mg PEG TID- started after persistent retention and found to be effective. monitor I's and O's Check bladder scan for residual urine three times weekly Status: Acute (5) Hypokalemia Assessment & Plan: 11/02: 3.5; given 20mEq via peg 10/28: 3.4; given 40mEq via PEG 10/12: K+ was 3.3; replaced K+ on 08/10: 4.2 Monitor with weekly thursday labs Status: Acute (6) Sacral ulcer Assessment & Plan: Healed Cont with offloading/cushioning/turning Continue frequent turning, protective ointment and skin checks. Status: Resolved (7) History of coronary artery disease Assessment & Plan: s/p cardiac stents on 06/13/15 Cont ASA 81mg via PEG daily Cont Coreg 3.125mg PEG BID Cont Plavix 75 mg PEG daily Status: Acute (8) Seizures Assessment & Plan: Continue Keppra 500mg PEG BID for seizure prophylaxis Monitor for activity Status: Acute (9) Lower extremity edema Assessment & Plan: Improved SCDs in place Pressure ulcer boots on b/l Continue to monitor Status: Acute (10) Prophylactic measure Assessment & Plan: Pepcid 20 mg PEG BID Lovenox 40mg SC daily SCDs and offloading boots continue to turn and reposition q2hrs Continue to monitor medication administrations and clinical presentation weekly labs. vasoline ointment applied to feet prn to prevent hyperkeratosis Please hold feeding from 10pm-6am, placed into nursing communication Vitamin A & D for lips There is no new update at this time. <Jeison Moore - Last Filed: 11/09/17 18:59> Objective - Vital Signs/Intake and Output Vital Signs (last 24 hours): Temp Pulse Resp BP Pulse Ox 98.3 F 65 20 111/71 96 11/09/17 15:00 11/09/17 15:00 11/09/17 15:00 11/09/17 15:00 11/09/17 15:00 Intake and Output: 11/09/17 11/09/17 06:59 18:59 Intake Total 1560 720 Output Total 400 480 Balance 1160 240 - Medications Medications: Current Medications Acetylcysteine (Acetylcysteine 20%) 4 ml INH RQ6 [facility] Last Admin: 11/09/17 07:16 Dose: 4 ml Aspirin (Aspirin Chewable) 81 mg PEG DAILY [facility] Last Admin: 11/09/17 09:27 Dose: 81 mg Carvedilol (Coreg) 3.125 mg PEG BID [facility] Last Admin: 11/09/17 17:28 Dose: 3.125 mg Enoxaparin Sodium (Lovenox) 40 mg SC DAILY [facility] Last Admin: 11/09/17 09:28 Dose: 40 mg Famotidine (Pepcid) 20 mg PEG DAILY [facility] Last Admin: 11/09/17 09:28 Dose: 20 mg Finasteride (Proscar) 5 mg PEG DAILY [facility] Last Admin: 11/09/17 09:28 Dose: 5 mg Levetiracetam (Keppra) 500 mg PEG BID [facility] Last Admin: 11/09/17 17:28 Dose: 500 mg Saccharomyces Boulardii (Florastor) 250 mg PEG DAILY [facility] Last Admin: 11/09/17 09:27 Dose: 250 mg Scopolamine (Transderm-Scop) 1 patch TD Q3D [facility] Last Admin: 11/08/17 09:58 Dose: 1 patch Tamsulosin HCl (Flomax) 0.4 mg PEG DAILY [facility] Last Admin: 11/09/17 09:28 Dose: 0.4 mg - Labs Labs: 11/09/17 07:31 11/09/17 07:31 PT 10.6 SECONDS (9.7-12.2) 11/24/15 14:10 INR 1.0 11/24/15 14:10 APTT 25 SECONDS (21-34) 11/24/15 14:10 Attending/Attestation - Attestation I have personally seen and examined this patient.: Yes I have fully participated in the care of the patient.: Yes I have reviewed all pertinent clinical information, including history, physical exam and plan: Yes Notes (Text): Seen and examined sacral area examined with the resident.Wound healed I agree with the documentation of the resident 11/09/17 18:58
[2017-11-09] MEDS: Vitamins A & D Oint UD Foilpak TOP PRN (22:13)
[2017-11-10] MEDS: Acetylcysteine 20% Inhal Soln (4ml) INH SCH ×3 (01:31→13:16)
--- NOTE | 2017-11-10 06:56 | CP.PCM.PN ---
<Ben Martell R - Last Filed: 11/10/17 06:55> Subjective - Date & Time of Evaluation Date of Evaluation: 11/10/17 Time of Evaluation: 06:55 - Subjective Subjective: PGY-[address] Moore. No acute events overnight noted. Patient was seen and examined at bedside in no acute distress. Patient is unchanged clinically. Unable to evaluate review of systems due to anoxic brain injury. Objective - Vital Signs/Intake and Output Vital Signs (last 24 hours): Temp Pulse Resp BP Pulse Ox 98.5 F 60 20 112/70 100 11/09/17 23:49 11/09/17 23:49 11/09/17 23:49 11/09/17 23:49 11/09/17 23:49 Intake and Output: 11/09/17 11/10/17 18:59 06:59 Intake Total 720 Output Total 480 Balance 240 - Medications Medications: Current Medications Acetylcysteine (Acetylcysteine 20%) 4 ml INH RQ6 [facility] Last Admin: 11/10/17 01:31 Dose: Not Given Aspirin (Aspirin Chewable) 81 mg PEG DAILY [facility] Last Admin: 11/09/17 09:27 Dose: 81 mg Carvedilol (Coreg) 3.125 mg PEG BID [facility] Last Admin: 11/09/17 17:28 Dose: 3.125 mg Enoxaparin Sodium (Lovenox) 40 mg SC DAILY [facility] Last Admin: 11/09/17 09:28 Dose: 40 mg Famotidine (Pepcid) 20 mg PEG DAILY [facility] Last Admin: 11/09/17 09:28 Dose: 20 mg Finasteride (Proscar) 5 mg PEG DAILY [facility] Last Admin: 11/09/17 09:28 Dose: 5 mg Levetiracetam (Keppra) 500 mg PEG BID [facility] Last Admin: 11/09/17 17:28 Dose: 500 mg Saccharomyces Boulardii (Florastor) 250 mg PEG DAILY [facility] Last Admin: 11/09/17 09:27 Dose: 250 mg Scopolamine (Transderm-Scop) 1 patch TD Q3D [facility] Last Admin: 11/08/17 09:58 Dose: 1 patch Tamsulosin HCl (Flomax) 0.4 mg PEG DAILY [facility] Last Admin: 11/09/17 09:28 Dose: 0.4 mg Vitamin A (Vitamin A & D Oint Ud Foilpak) 0.5 ea TOP Q4 PRN PRN Reason: Dry skin Last Admin: 11/09/17 22:13 Dose: 0.5 ea - Labs Labs: 11/09/17 07:31 11/09/17 07:31 PT 10.6 SECONDS (9.7-12.2) 11/24/15 14:10 INR 1.0 11/24/15 14:10 APTT 25 SECONDS (21-34) 11/24/15 14:10 - Additional Findings Additional findings: - Head Exam Head Exam: ATRAUMATIC, NORMAL INSPECTION - Eye Exam Eye Exam: absent: EOMI, Normal appearance - ENT Exam ENT Exam: Mucous Membranes Moist - Neck Exam Additional comments: Trach in place - Respiratory Exam Respiratory Exam: Rhonchi. absent: Clear to Ausculation Bilateral (excessive mucous production- improved), Respiratory Distress - Cardiovascular Exam Cardiovascular Exam: REGULAR RHYTHM, +S1, +S2 - GI/Abdominal Exam GI & Abdominal Exam: Distended, Soft, Hypoactive Bowel Sounds. absent: Firm, Mass Additional comments: PEG in place - Extremities Exam Extremities Exam: absent: Pedal Edema - Neurological Exam Neurological Exam: Altered. absent: Alert, Awake, Oriented x3 - Psychiatric Exam Psychiatric exam: Flat Affect. absent: Normal Affect, Normal Mood - Skin Skin Exam: Dry, Intact, Normal Color, Warm; no sacral ulcers noted Assessment and Plan - Assessment and Plan (Free Text) Assessment: (1) Anoxic encephalopathy Assessment & Plan: s/p cardiac arrest in 05/2015 no acute changes Pt has non spontaneous movements. Continue tube feeds- goal of 60ml/hr, feedings held at night due to fluid overload--> tube feeds 12h Status: Chronic (2) Respiratory failure Assessment & Plan: Trach in place, continue daily monitoring for secretions. No change in management at this time. Continue with aggressive suctioning multiple times a day per respiratory therapist. Monitor for signs of respiratory distress Thick secretions Duoneb 3ml INH Q6 and Mucomyst 4ml INH Q8H Scopolamine 1 patch TD Q3D [facility] Repeat CXR on 05/28/17: linear increased consolidative changes in the right mid- lung zone and left lung base which may represent atelectasis and/or infiltrate. Questionable trace left pleural effusion. moderate venous congestion. cardiomegaly. degenerative changes in the spine and shoulders Repeat CXR 11/6/17: no active disease; no change from previous CXR. Status: Chronic (3) Urinary tract infection Assessment & Plan: Leukocytosis secondary to UTI. Resolved 11/02: WBC within normal range 10/19/17: afebrile, WBC within normal range 10/12: afebrile, WBC within normal range 08/10: WBC 8.2 afebrile Meropenem (started 07/22) - per Dr. Armstrong continue for a total of 2 weeks - Discontinued 08/05/17 ID consult: Dr. Armstrong --> help appreciated Status: Acute (4) Urinary retention Assessment & Plan: 10/12: Condom baker in place; continue to monitor 07/21: NS stopped because tube feeds restarted 07/20: Urine dark in color, monitor, continue NS at 50 ml per hour 07/07/17: Catheter flushed, patient output approx. 500mL within one hour post flush. 06/27/17: Continue bladder massages to aid in voiding. 06/25/17: Patient voids with movement. Continue bladder massages to aid in voiding. 06/23/17: Patient will need to have daily bladder massage to allow for complete voiding 06/17/17: Nursing communication placed in: straight catherization with bladder scan> 100ml 06/08: urinary retention yesterday, was given 40mg lasix iv and patient was able to urinate through condom baker Take note condom cath not always securely in place so Is and Os are approximate as patient does wet bed Ordered- new condom catheter on 05/22/17 Flomax 0.4mg PEG daily Proscar 5mg PEG daily continue Bethanecol 50mg PEG TID- started after persistent retention and found to be effective. monitor I's and O's Check bladder scan for residual urine three times weekly Status: Acute (5) Hypokalemia Assessment & Plan: 11/02: 3.5; given 20mEq via peg 10/28: 3.4; given 40mEq via PEG 10/12: K+ was 3.3; replaced K+ on 08/10: 4.2 Monitor with weekly thursday labs Status: Acute (6) Sacral ulcer Assessment & Plan: Healed Cont with offloading/cushioning/turning Continue frequent turning, protective ointment and skin checks. Status: Resolved (7) History of coronary artery disease Assessment & Plan: s/p cardiac stents on 06/13/15 Cont ASA 81mg via PEG daily Cont Coreg 3.125mg PEG BID Cont Plavix 75 mg PEG daily Status: Acute (8) Seizures Assessment & Plan: Continue Keppra 500mg PEG BID for seizure prophylaxis Monitor for activity Status: Acute (9) Lower extremity edema Assessment & Plan: Improved SCDs in place Pressure ulcer boots on b/l Continue to monitor Status: Acute (10) Prophylactic measure Assessment & Plan: Pepcid 20 mg PEG BID Lovenox 40mg SC daily SCDs and offloading boots continue to turn and reposition q2hrs Continue to monitor medication administrations and clinical presentation weekly labs. vasoline ointment applied to feet prn to prevent hyperkeratosis Please hold feeding from 10pm-6am, placed into nursing communication Vitamin A & D for lips There is no new update at this time. <Jeison Moore - Last Filed: 11/11/17 11:44> Objective - Vital Signs/Intake and Output Vital Signs (last 24 hours): Temp Pulse Resp BP Pulse Ox 98.8 F 68 20 122/77 97 11/11/17 07:00 11/11/17 07:00 11/11/17 07:00 11/11/17 07:00 11/11/17 07:00 Intake and Output: 11/11/17 11/11/17 06:59 18:59 Intake Total 680 Output Total 500 Balance 180 - Medications Medications: Current Medications Acetylcysteine (Acetylcysteine 20%) 4 ml INH RQ6 [facility] Last Admin: 11/11/17 01:57 Dose: Not Given Aspirin (Aspirin Chewable) 81 mg PEG DAILY [facility] Last Admin: 11/11/17 10:18 Dose: 81 mg Carvedilol (Coreg) 3.125 mg PEG BID [facility] Last Admin: 11/11/17 10:18 Dose: 3.125 mg Enoxaparin Sodium (Lovenox) 40 mg SC DAILY [facility] Last Admin: 11/11/17 10:18 Dose: 40 mg Famotidine (Pepcid) 20 mg PEG DAILY [facility] Last Admin: 11/11/17 10:18 Dose: 20 mg Finasteride (Proscar) 5 mg PEG DAILY [facility] Last Admin: 11/11/17 10:18 Dose: 5 mg Levetiracetam (Keppra) 500 mg PEG BID [facility] Last Admin: 11/11/17 10:18 Dose: 500 mg Saccharomyces Boulardii (Florastor) 250 mg PEG DAILY [facility] Last Admin: 11/11/17 10:18 Dose: 250 mg Scopolamine (Transderm-Scop) 1 patch TD Q3D [facility] Last Admin: 11/11/17 10:19 Dose: 1 patch Tamsulosin HCl (Flomax) 0.4 mg PEG DAILY [facility] Last Admin: 11/11/17 10:18 Dose: 0.4 mg Vitamin A (Vitamin A & D Oint Ud Foilpak) 0.5 ea TOP Q4 PRN PRN Reason: Dry skin Last Admin: 11/09/17 22:13 Dose: 0.5 ea - Labs Labs: 11/09/17 07:31 11/09/17 07:31 PT 10.6 SECONDS (9.7-12.2) 11/24/15 14:10 INR 1.0 11/24/15 14:10 APTT 25 SECONDS (21-34) 11/24/15 14:10 Attending/Attestation - Attestation I have personally seen and examined this patient.: No I have fully participated in the care of the patient.: Yes I have reviewed all pertinent clinical information, including history, physical exam and plan: Yes
[2017-11-10] MEDS: levETIRAcetam 100 mg/ml (5ml) Oral Syringe PEG SCH ×2 (09:57→17:32)
[2017-11-10] MEDS: Saccharomyces Boulardi 250 mg Cap PEG SCH (09:57)
[2017-11-10] MEDS: Enoxaparin 40 mg Syringe SC SCH (09:57)
[2017-11-11] MEDS: Acetylcysteine 20% Inhal Soln (4ml) INH SCH ×4 (01:57→19:46)
--- NOTE | 2017-11-11 07:09 | CP.PCM.PN ---
<Ben Martell R - Last Filed: 11/11/17 07:08> Subjective - Date & Time of Evaluation Date of Evaluation: 11/11/17 Time of Evaluation: 07:08 - Subjective Subjective: PGY-[address] Moore No acute events noted overnight. Patient was seen and examined at bedside in no acute distress. Patient is unchanged clinically. Unable to evaluate review of systems due to anoxic brain injury. Objective - Vital Signs/Intake and Output Vital Signs (last 24 hours): Temp Pulse Resp BP Pulse Ox 98 F 71 20 114/70 100 11/10/17 23:44 11/10/17 23:44 11/10/17 23:44 11/10/17 23:44 11/10/17 23:44 Intake and Output: 11/11/17 11/11/17 06:59 18:59 Intake Total 680 Output Total 500 Balance 180 - Medications Medications: Current Medications Acetylcysteine (Acetylcysteine 20%) 4 ml INH RQ6 [facility] Last Admin: 11/11/17 01:57 Dose: Not Given Aspirin (Aspirin Chewable) 81 mg PEG DAILY [facility] Last Admin: 11/10/17 09:57 Dose: 81 mg Carvedilol (Coreg) 3.125 mg PEG BID [facility] Last Admin: 11/10/17 17:32 Dose: 3.125 mg Enoxaparin Sodium (Lovenox) 40 mg SC DAILY [facility] Last Admin: 11/10/17 09:57 Dose: 40 mg Famotidine (Pepcid) 20 mg PEG DAILY [facility] Last Admin: 11/10/17 09:57 Dose: 20 mg Finasteride (Proscar) 5 mg PEG DAILY [facility] Last Admin: 11/10/17 09:57 Dose: 5 mg Levetiracetam (Keppra) 500 mg PEG BID [facility] Last Admin: 11/10/17 17:32 Dose: 500 mg Saccharomyces Boulardii (Florastor) 250 mg PEG DAILY [facility] Last Admin: 11/10/17 09:57 Dose: 250 mg Scopolamine (Transderm-Scop) 1 patch TD Q3D [facility] Last Admin: 11/08/17 09:58 Dose: 1 patch Tamsulosin HCl (Flomax) 0.4 mg PEG DAILY [facility] Last Admin: 11/10/17 09:57 Dose: 0.4 mg Vitamin A (Vitamin A & D Oint Ud Foilpak) 0.5 ea TOP Q4 PRN PRN Reason: Dry skin Last Admin: 11/09/17 22:13 Dose: 0.5 ea - Labs Labs: 11/09/17 07:31 11/09/17 07:31 PT 10.6 SECONDS (9.7-12.2) 11/24/15 14:10 INR 1.0 11/24/15 14:10 APTT 25 SECONDS (21-34) 11/24/15 14:10 - Additional Findings Additional findings: - Head Exam Head Exam: ATRAUMATIC, NORMAL INSPECTION - Eye Exam Eye Exam: absent: EOMI, Normal appearance - ENT Exam ENT Exam: Mucous Membranes Moist - Neck Exam Additional comments: Trach in place - Respiratory Exam Respiratory Exam: Rhonchi. absent: Clear to Ausculation Bilateral (excessive mucous production- improved), Respiratory Distress - Cardiovascular Exam Cardiovascular Exam: REGULAR RHYTHM, +S1, +S2 - GI/Abdominal Exam GI & Abdominal Exam: Distended, Soft, Hypoactive Bowel Sounds. absent: Firm, Mass Additional comments: PEG in place - Extremities Exam Extremities Exam: absent: Pedal Edema - Neurological Exam Neurological Exam: Altered. absent: Alert, Awake, Oriented x3 - Psychiatric Exam Psychiatric exam: Flat Affect. absent: Normal Affect, Normal Mood - Skin Skin Exam: Dry, Intact, Normal Color, Warm; no sacral ulcers noted Assessment and Plan - Assessment and Plan (Free Text) Assessment: (1) Anoxic encephalopathy Assessment & Plan: s/p cardiac arrest in 05/2015 no acute changes Pt has non spontaneous movements. Continue tube feeds- goal of 60ml/hr, feedings held at night due to fluid overload--> tube feeds 12h Status: Chronic (2) Respiratory failure Assessment & Plan: Trach in place, continue daily monitoring for secretions. No change in management at this time. Continue with aggressive suctioning multiple times a day per respiratory therapist. Monitor for signs of respiratory distress Thick secretions Duoneb 3ml INH Q6 and Mucomyst 4ml INH Q8H Scopolamine 1 patch TD Q3D [facility] Repeat CXR on 05/28/17: linear increased consolidative changes in the right mid- lung zone and left lung base which may represent atelectasis and/or infiltrate. Questionable trace left pleural effusion. moderate venous congestion. cardiomegaly. degenerative changes in the spine and shoulders Repeat CXR 09/28/17: no active disease; no change from previous CXR. Status: Chronic (3) Urinary tract infection Assessment & Plan: Leukocytosis secondary to UTI. Resolved 11/02: WBC within normal range 10/19/17: afebrile, WBC within normal range 10/12: afebrile, WBC within normal range 08/10: WBC 8.2 afebrile Meropenem (started 07/22) - per Dr. Armstrong continue for a total of 2 weeks - Discontinued 08/05/17 ID consult: Dr. Armstrong --> help appreciated Status: Acute (4) Urinary retention Assessment & Plan: 10/12: Condom baker in place; continue to monitor 07/21: NS stopped because tube feeds restarted 07/20: Urine dark in color, monitor, continue NS at 50 ml per hour 07/07/17: Catheter flushed, patient output approx. 500mL within one hour post flush. 06/27/17: Continue bladder massages to aid in voiding. 06/25/17: Patient voids with movement. Continue bladder massages to aid in voiding. 06/23/17: Patient will need to have daily bladder massage to allow for complete voiding 06/17/17: Nursing communication placed in: straight catherization with bladder scan> 100ml 06/08: urinary retention yesterday, was given 40mg lasix iv and patient was able to urinate through condom baker Take note condom cath not always securely in place so Is and Os are approximate as patient does wet bed Ordered- new condom catheter on 05/22/17 Flomax 0.4mg PEG daily Proscar 5mg PEG daily continue Bethanecol 50mg PEG TID- started after persistent retention and found to be effective. monitor I's and O's Check bladder scan for residual urine three times weekly Status: Acute (5) Hypokalemia Assessment & Plan: 11/02: 3.5; given 20mEq via peg 10/28: 3.4; given 40mEq via PEG 10/12: K+ was 3.3; replaced K+ on 08/10: 4.2 Monitor with weekly thursday labs Status: Acute (6) Sacral ulcer Assessment & Plan: Healed Cont with offloading/cushioning/turning Continue frequent turning, protective ointment and skin checks. Status: Resolved (7) History of coronary artery disease Assessment & Plan: s/p cardiac stents on 06/13/15 Cont ASA 81mg via PEG daily Cont Coreg 3.125mg PEG BID Cont Plavix 75 mg PEG daily Status: Acute (8) Seizures Assessment & Plan: Continue Keppra 500mg PEG BID for seizure prophylaxis Monitor for activity Status: Acute (9) Lower extremity edema Assessment & Plan: Improved SCDs in place Pressure ulcer boots on b/l Continue to monitor Status: Acute (10) Prophylactic measure Assessment & Plan: Pepcid 20 mg PEG BID Lovenox 40mg SC daily SCDs and offloading boots continue to turn and reposition q2hrs Continue to monitor medication administrations and clinical presentation weekly labs. vasoline ointment applied to feet prn to prevent hyperkeratosis Please hold feeding from 10pm-6am, placed into nursing communication Vitamin A & D for lips There is no new update at this time. <Jeison Moore - Last Filed: 11/11/17 11:45> Objective - Vital Signs/Intake and Output Vital Signs (last 24 hours): Temp Pulse Resp BP Pulse Ox 98.8 F 68 20 122/77 97 11/11/17 07:00 11/11/17 07:00 11/11/17 07:00 11/11/17 07:00 11/11/17 07:00 Intake and Output: 11/11/17 11/11/17 06:59 18:59 Intake Total 680 Output Total 500 Balance 180 - Medications Medications: Current Medications Acetylcysteine (Acetylcysteine 20%) 4 ml INH RQ6 [facility] Last Admin: 11/11/17 01:57 Dose: Not Given Aspirin (Aspirin Chewable) 81 mg PEG DAILY [facility] Last Admin: 11/11/17 10:18 Dose: 81 mg Carvedilol (Coreg) 3.125 mg PEG BID [facility] Last Admin: 11/11/17 10:18 Dose: 3.125 mg Enoxaparin Sodium (Lovenox) 40 mg SC DAILY [facility] Last Admin: 11/11/17 10:18 Dose: 40 mg Famotidine (Pepcid) 20 mg PEG DAILY [facility] Last Admin: 11/11/17 10:18 Dose: 20 mg Finasteride (Proscar) 5 mg PEG DAILY [facility] Last Admin: 11/11/17 10:18 Dose: 5 mg Levetiracetam (Keppra) 500 mg PEG BID [facility] Last Admin: 11/11/17 10:18 Dose: 500 mg Saccharomyces Boulardii (Florastor) 250 mg PEG DAILY [facility] Last Admin: 11/11/17 10:18 Dose: 250 mg Scopolamine (Transderm-Scop) 1 patch TD Q3D [facility] Last Admin: 11/11/17 10:19 Dose: 1 patch Tamsulosin HCl (Flomax) 0.4 mg PEG DAILY [facility] Last Admin: 11/11/17 10:18 Dose: 0.4 mg Vitamin A (Vitamin A & D Oint Ud Foilpak) 0.5 ea TOP Q4 PRN PRN Reason: Dry skin Last Admin: 11/09/17 22:13 Dose: 0.5 ea - Labs Labs: 11/09/17 07:31 11/09/17 07:31 PT 10.6 SECONDS (9.7-12.2) 11/24/15 14:10 INR 1.0 11/24/15 14:10 APTT 25 SECONDS (21-34) 11/24/15 14:10 Attending/Attestation - Attestation I have personally seen and examined this patient.: No I have fully participated in the care of the patient.: Yes I have reviewed all pertinent clinical information, including history, physical exam and plan: Yes
[2017-11-11] MEDS: Enoxaparin 40 mg Syringe SC SCH (10:18)
[2017-11-11] MEDS: Saccharomyces Boulardi 250 mg Cap PEG SCH (10:18)
[2017-11-11] MEDS: levETIRAcetam 100 mg/ml (5ml) Oral Syringe PEG SCH ×2 (10:18→17:45)
[2017-11-12] MEDS: Acetylcysteine 20% Inhal Soln (4ml) INH SCH ×4 (01:31→19:21)
--- NOTE | 2017-11-12 07:29 | CP.PCM.PN ---
<Ben Martell R - Last Filed: 11/12/17 07:27> Subjective - Date & Time of Evaluation Date of Evaluation: 11/12/17 Time of Evaluation: 07:28 - Subjective Subjective: PGY-[address] Moore No acute events noted overnight. Patient was seen and examined at bedside in no acute distress. Patient is unchanged clinically. Unable to evaluate review of systems due to anoxic brain injury. Objective - Vital Signs/Intake and Output Vital Signs (last 24 hours): Temp Pulse Resp BP Pulse Ox 98.1 F 72 20 123/76 99 11/11/17 23:48 11/11/17 23:48 11/11/17 23:48 11/11/17 23:48 11/11/17 23:48 Intake and Output: 11/12/17 11/12/17 06:59 18:59 Intake Total 800 Output Total 550 Balance 250 - Medications Medications: Current Medications Acetylcysteine (Acetylcysteine 20%) 4 ml INH RQ6 [facility] Last Admin: 11/12/17 07:18 Dose: Not Given Aspirin (Aspirin Chewable) 81 mg PEG DAILY [facility] Last Admin: 11/11/17 10:18 Dose: 81 mg Carvedilol (Coreg) 3.125 mg PEG BID [facility] Last Admin: 11/11/17 17:45 Dose: 3.125 mg Enoxaparin Sodium (Lovenox) 40 mg SC DAILY [facility] Last Admin: 11/11/17 10:18 Dose: 40 mg Famotidine (Pepcid) 20 mg PEG DAILY [facility] Last Admin: 11/11/17 10:18 Dose: 20 mg Finasteride (Proscar) 5 mg PEG DAILY [facility] Last Admin: 11/11/17 10:18 Dose: 5 mg Levetiracetam (Keppra) 500 mg PEG BID [facility] Last Admin: 11/11/17 17:45 Dose: 500 mg Saccharomyces Boulardii (Florastor) 250 mg PEG DAILY [facility] Last Admin: 11/11/17 10:18 Dose: 250 mg Scopolamine (Transderm-Scop) 1 patch TD Q3D [facility] Last Admin: 11/11/17 10:19 Dose: 1 patch Tamsulosin HCl (Flomax) 0.4 mg PEG DAILY [facility] Last Admin: 11/11/17 10:18 Dose: 0.4 mg Vitamin A (Vitamin A & D Oint Ud Foilpak) 0.5 ea TOP Q4 PRN PRN Reason: Dry skin Last Admin: 11/09/17 22:13 Dose: 0.5 ea - Labs Labs: 11/09/17 07:31 11/09/17 07:31 PT 10.6 SECONDS (9.7-12.2) 11/24/15 14:10 INR 1.0 11/24/15 14:10 APTT 25 SECONDS (21-34) 11/24/15 14:10 - Additional Findings Additional findings: - Head Exam Head Exam: ATRAUMATIC, NORMAL INSPECTION - Eye Exam Eye Exam: absent: EOMI, Normal appearance - ENT Exam ENT Exam: Mucous Membranes Moist - Neck Exam Additional comments: Trach in place - Respiratory Exam Respiratory Exam: Rhonchi. absent: Clear to Ausculation Bilateral (excessive mucous production- improved), Respiratory Distress - Cardiovascular Exam Cardiovascular Exam: REGULAR RHYTHM, +S1, +S2 - GI/Abdominal Exam GI & Abdominal Exam: Distended, Soft, Hypoactive Bowel Sounds. absent: Firm, Mass Additional comments: PEG in place - Extremities Exam Extremities Exam: absent: Pedal Edema - Neurological Exam Neurological Exam: Altered. absent: Alert, Awake, Oriented x3 - Psychiatric Exam Psychiatric exam: Flat Affect. absent: Normal Affect, Normal Mood - Skin Skin Exam: Dry, Intact, Normal Color, Warm; no sacral ulcers noted Assessment and Plan - Assessment and Plan (Free Text) Assessment: (1) Anoxic encephalopathy Assessment & Plan: s/p cardiac arrest in 05/2015 no acute changes Pt has non spontaneous movements. Continue tube feeds- goal of 60ml/hr, feedings held at night due to fluid overload--> tube feeds 12h Status: Chronic (2) Respiratory failure Assessment & Plan: Trach in place, continue daily monitoring for secretions. No change in management at this time. Continue with aggressive suctioning multiple times a day per respiratory therapist. Monitor for signs of respiratory distress Thick secretions Duoneb 3ml INH Q6 and Mucomyst 4ml INH Q8H Scopolamine 1 patch TD Q3D JOO Repeat CXR on 05/28/17: linear increased consolidative changes in the right mid- lung zone and left lung base which may represent atelectasis and/or infiltrate. Questionable trace left pleural effusion. moderate venous congestion. cardiomegaly. degenerative changes in the spine and shoulders Repeat CXR 09/28/17: no active disease; no change from previous CXR. Status: Chronic (3) Urinary tract infection Assessment & Plan: Leukocytosis secondary to UTI. Resolved 11/02: WBC within normal range 10/19/17: afebrile, WBC within normal range 10/12: afebrile, WBC within normal range 08/10: WBC 8.2 afebrile Meropenem (started 07/22) - per Dr. Armstrong continue for a total of 2 weeks - Discontinued 08/05/17 ID consult: Dr. Armstrong --> help appreciated Status: Acute (4) Urinary retention Assessment & Plan: 10/12: Condom baker in place; continue to monitor 07/21: NS stopped because tube feeds restarted 07/20: Urine dark in color, monitor, continue NS at 50 ml per hour 07/07/17: Catheter flushed, patient output approx. 500mL within one hour post flush. 06/27/17: Continue bladder massages to aid in voiding. 06/25/17: Patient voids with movement. Continue bladder massages to aid in voiding. 06/23/17: Patient will need to have daily bladder massage to allow for complete voiding 06/17/17: Nursing communication placed in: straight catherization with bladder scan> 100ml 06/08: urinary retention yesterday, was given 40mg lasix iv and patient was able to urinate through condom baker Take note condom cath not always securely in place so Is and Os are approximate as patient does wet bed Ordered- new condom catheter on 05/22/17 Flomax 0.4mg PEG daily Proscar 5mg PEG daily continue Bethanecol 50mg PEG TID- started after persistent retention and found to be effective. monitor I's and O's Check bladder scan for residual urine three times weekly Status: Acute (5) Hypokalemia Assessment & Plan: 11/02: 3.5; given 20mEq via peg 10/28: 3.4; given 40mEq via PEG 10/12: K+ was 3.3; replaced K+ on 08/10: 4.2 Monitor with weekly thursday labs Status: Acute (6) Sacral ulcer Assessment & Plan: Healed Cont with offloading/cushioning/turning Continue frequent turning, protective ointment and skin checks. Status: Resolved (7) History of coronary artery disease Assessment & Plan: s/p cardiac stents on 06/13/15 Cont ASA 81mg via PEG daily Cont Coreg 3.125mg PEG BID Cont Plavix 75 mg PEG daily Status: Acute (8) Seizures Assessment & Plan: Continue Keppra 500mg PEG BID for seizure prophylaxis Monitor for activity Status: Acute (9) Lower extremity edema Assessment & Plan: Improved SCDs in place Pressure ulcer boots on b/l Continue to monitor Status: Acute (10) Prophylactic measure Assessment & Plan: Pepcid 20 mg PEG BID Lovenox 40mg SC daily SCDs and offloading boots continue to turn and reposition q2hrs Continue to monitor medication administrations and clinical presentation weekly labs. vasoline ointment applied to feet prn to prevent hyperkeratosis Please hold feeding from 10pm-6am, placed into nursing communication Vitamin A & D for lips There is no new update at this time. <Jeison Moore - Last Filed: 11/26/17 14:15> Objective - Vital Signs/Intake and Output Vital Signs (last 24 hours): Temp Pulse Resp BP Pulse Ox 98.1 F 62 20 114/64 99 11/26/17 08:17 11/26/17 08:17 11/26/17 08:17 11/26/17 08:17 11/26/17 08:17 Intake and Output: 11/26/17 11/26/17 06:59 18:59 Intake Total 960 Output Total 1250 Balance -290 - Medications Medications: Current Medications Acetylcysteine (Acetylcysteine 20%) 4 ml INH RQ6 [facility] Last Admin: 11/26/17 08:44 Dose: 4 ml Albuterol/Ipratropium (Duoneb 3 Mg/0.5 Mg (3 Ml) Ud) 3 ml INH RQ6 [facility] Last Admin: 11/26/17 08:44 Dose: 3 ml Aspirin (Aspirin Chewable) 81 mg PEG DAILY [facility] Last Admin: 11/26/17 10:19 Dose: 81 mg Bethanechol Chloride (Urecholine) 50 mg PO TID [facility] Last Admin: 11/26/17 14:13 Dose: 50 mg Carvedilol (Coreg) 3.125 mg PEG BID [facility] Last Admin: 11/26/17 10:19 Dose: 3.125 mg Clopidogrel Bisulfate (Plavix) 75 mg PEG DAILY [facility] Last Admin: 11/26/17 10:19 Dose: 75 mg Enoxaparin Sodium (Lovenox) 40 mg SC DAILY [facility] Last Admin: 11/26/17 10:19 Dose: 40 mg Famotidine (Pepcid) 20 mg PEG DAILY [facility] Last Admin: 11/26/17 10:19 Dose: 20 mg Finasteride (Proscar) 5 mg PEG DAILY [facility] Last Admin: 11/26/17 10:19 Dose: 5 mg Levetiracetam (Keppra) 500 mg PEG BID [facility] Last Admin: 11/26/17 10:19 Dose: 500 mg Rosuvastatin Calcium (Crestor) 2.5 mg PO HS [facility] Last Admin: 11/25/17 21:56 Dose: 2.5 mg Saccharomyces Boulardii (Florastor) 250 mg PEG DAILY [facility] Last Admin: 11/26/17 10:19 Dose: 250 mg Scopolamine (Transderm-Scop) 1 patch TD Q3D [facility] Last Admin: 11/26/17 10:19 Dose: 1 patch Tamsulosin HCl (Flomax) 0.4 mg PEG DAILY [facility] Last Admin: 11/26/17 10:19 Dose: 0.4 mg Vitamin A (Vitamin A & D Oint Ud Foilpak) 0.5 ea TOP Q4 PRN PRN Reason: Dry skin Last Admin: 11/17/17 17:09 Dose: 0.5 ea - Labs Labs: 11/23/17 11:40 11/23/17 11:40 PT 10.6 SECONDS (9.7-12.2) 11/24/15 14:10 INR 1.0 11/24/15 14:10 APTT 25 SECONDS (21-34) 11/24/15 14:10 Attending/Attestation - Attestation I have personally seen and examined this patient.: Yes I have fully participated in the care of the patient.: Yes I have reviewed all pertinent clinical information, including history, physical exam and plan: Yes
[2017-11-12] MEDS: Saccharomyces Boulardi 250 mg Cap PEG SCH (09:25)
[2017-11-12] MEDS: Vitamins A & D Oint UD Foilpak TOP PRN (09:26)
[2017-11-12] MEDS: levETIRAcetam 100 mg/ml (5ml) Oral Syringe PEG SCH ×2 (09:26→18:18)
[2017-11-12] MEDS: Enoxaparin 40 mg Syringe SC SCH (10:30)
[2017-11-13] MEDS: Acetylcysteine 20% Inhal Soln (4ml) INH SCH ×2 (01:29→19:23)
--- NOTE | 2017-11-13 06:51 | CP.PCM.PN ---
<Ben Martell R - Last Filed: 11/13/17 06:50> Subjective - Date & Time of Evaluation Date of Evaluation: 11/13/17 Time of Evaluation: 06:50 - Subjective Subjective: PGY-[address] Moore No acute events noted overnight. Patient was seen and examined at bedside in no acute distress. Patient is unchanged clinically. Unable to evaluate review of systems due to anoxic brain injury. Objective - Vital Signs/Intake and Output Vital Signs (last 24 hours): Temp Pulse Resp BP Pulse Ox 98.5 F 71 20 128/68 100 11/12/17 23:33 11/12/17 23:33 11/12/17 23:33 11/12/17 23:33 11/12/17 23:33 Intake and Output: 11/12/17 11/13/17 18:59 06:59 Intake Total 620 620 Output Total 700 200 Balance -80 420 - Medications Medications: Current Medications Acetylcysteine (Acetylcysteine 20%) 4 ml INH RQ6 [facility] Last Admin: 11/13/17 01:29 Dose: Not Given Aspirin (Aspirin Chewable) 81 mg PEG DAILY [facility] Last Admin: 11/12/17 09:24 Dose: 81 mg Carvedilol (Coreg) 3.125 mg PEG BID [facility] Last Admin: 11/12/17 18:19 Dose: 3.125 mg Enoxaparin Sodium (Lovenox) 40 mg SC DAILY [facility] Last Admin: 11/12/17 10:30 Dose: 40 mg Famotidine (Pepcid) 20 mg PEG DAILY [facility] Last Admin: 11/12/17 09:26 Dose: 20 mg Finasteride (Proscar) 5 mg PEG DAILY [facility] Last Admin: 11/12/17 09:26 Dose: 5 mg Levetiracetam (Keppra) 500 mg PEG BID [facility] Last Admin: 11/12/17 18:18 Dose: 500 mg Saccharomyces Boulardii (Florastor) 250 mg PEG DAILY [facility] Last Admin: 11/12/17 09:25 Dose: 250 mg Scopolamine (Transderm-Scop) 1 patch TD Q3D [facility] Last Admin: 11/11/17 10:19 Dose: 1 patch Tamsulosin HCl (Flomax) 0.4 mg PEG DAILY [facility] Last Admin: 11/12/17 09:24 Dose: 0.4 mg Vitamin A (Vitamin A & D Oint Ud Foilpak) 0.5 ea TOP Q4 PRN PRN Reason: Dry skin Last Admin: 11/12/17 09:26 Dose: 0.5 ea - Labs Labs: 11/09/17 07:31 11/09/17 07:31 PT 10.6 SECONDS (9.7-12.2) 11/24/15 14:10 INR 1.0 11/24/15 14:10 APTT 25 SECONDS (21-34) 11/24/15 14:10 - Additional Findings Additional findings: - Head Exam Head Exam: ATRAUMATIC, NORMAL INSPECTION - Eye Exam Eye Exam: absent: EOMI, Normal appearance - ENT Exam ENT Exam: Mucous Membranes Moist - Neck Exam Additional comments: Trach in place - Respiratory Exam Respiratory Exam: Rhonchi. absent: Clear to Ausculation Bilateral (excessive mucous production- improved), Respiratory Distress - Cardiovascular Exam Cardiovascular Exam: REGULAR RHYTHM, +S1, +S2 - GI/Abdominal Exam GI & Abdominal Exam: Distended, Soft, Hypoactive Bowel Sounds. absent: Firm, Mass Additional comments: PEG in place - Extremities Exam Extremities Exam: absent: Pedal Edema - Neurological Exam Neurological Exam: Altered. absent: Alert, Awake, Oriented x3 - Psychiatric Exam Psychiatric exam: Flat Affect. absent: Normal Affect, Normal Mood - Skin Skin Exam: Dry, Intact, Normal Color, Warm; no sacral ulcers noted Assessment and Plan - Assessment and Plan (Free Text) Assessment: (1) Anoxic encephalopathy Assessment & Plan: s/p cardiac arrest in 05/2015 no acute changes Pt has non spontaneous movements. Continue tube feeds- goal of 60ml/hr, feedings held at night due to fluid overload--> tube feeds 12h Status: Chronic (2) Respiratory failure Assessment & Plan: Trach in place, continue daily monitoring for secretions. No change in management at this time. Continue with aggressive suctioning multiple times a day per respiratory therapist. Monitor for signs of respiratory distress Thick secretions Duoneb 3ml INH Q6 and Mucomyst 4ml INH Q8H Scopolamine 1 patch TD Q3D [facility]OO Repeat CXR on 05/28/17: linear increased consolidative changes in the right mid- lung zone and left lung base which may represent atelectasis and/or infiltrate. Questionable trace left pleural effusion. moderate venous congestion. cardiomegaly. degenerative changes in the spine and shoulders Repeat CXR 09/28/17: no active disease; no change from previous CXR. Status: Chronic (3) Urinary tract infection Assessment & Plan: Leukocytosis secondary to UTI. Resolved 11/02: WBC within normal range 10/19/17: afebrile, WBC within normal range 10/12: afebrile, WBC within normal range 08/10: WBC 8.2 afebrile Meropenem (started 07/22) - per Dr. Armstrong continue for a total of 2 weeks - Discontinued 08/05/17 ID consult: Dr. Armstrong --> help appreciated Status: Acute (4) Urinary retention Assessment & Plan: 10/12: Condom baker in place; continue to monitor 07/21: NS stopped because tube feeds restarted 07/20: Urine dark in color, monitor, continue NS at 50 ml per hour 07/07/17: Catheter flushed, patient output approx. 500mL within one hour post flush. 06/27/17: Continue bladder massages to aid in voiding. 06/25/17: Patient voids with movement. Continue bladder massages to aid in voiding. 06/23/17: Patient will need to have daily bladder massage to allow for complete voiding 06/17/17: Nursing communication placed in: straight catherization with bladder scan> 100ml 06/08: urinary retention yesterday, was given 40mg lasix iv and patient was able to urinate through condom baekr Take note condom cath not always securely in place so Is and Os are approximate as patient does wet bed Ordered- new condom catheter on 05/22/17 Flomax 0.4mg PEG daily Proscar 5mg PEG daily continue Bethanecol 50mg PEG TID- started after persistent retention and found to be effective. monitor I's and O's Check bladder scan for residual urine three times weekly Status: Acute (5) Hypokalemia Assessment & Plan: 11/02: 3.5; given 20mEq via peg 10/28: 3.4; given 40mEq via PEG 10/12: K+ was 3.3; replaced K+ on 08/10: 4.2 Monitor with weekly thursday labs Status: Acute (6) Sacral ulcer Assessment & Plan: Healed Cont with offloading/cushioning/turning Continue frequent turning, protective ointment and skin checks. Status: Resolved (7) History of coronary artery disease Assessment & Plan: s/p cardiac stents on 06/13/15 Cont ASA 81mg via PEG daily Cont Coreg 3.125mg PEG BID Cont Plavix 75 mg PEG daily Status: Acute (8) Seizures Assessment & Plan: Continue Keppra 500mg PEG BID for seizure prophylaxis Monitor for activity Status: Acute (9) Lower extremity edema Assessment & Plan: Improved SCDs in place Pressure ulcer boots on b/l Continue to monitor Status: Acute (10) Prophylactic measure Assessment & Plan: Pepcid 20 mg PEG BID Lovenox 40mg SC daily SCDs and offloading boots continue to turn and reposition q2hrs Continue to monitor medication administrations and clinical presentation weekly labs. vasoline ointment applied to feet prn to prevent hyperkeratosis Please hold feeding from 10pm-6am, placed into nursing communication Vitamin A & D for lips There is no new update at this time. <Jeison Moore - Last Filed: 11/26/17 14:16> Objective - Vital Signs/Intake and Output Vital Signs (last 24 hours): Temp Pulse Resp BP Pulse Ox 98.1 F 62 20 114/64 99 11/26/17 08:17 11/26/17 08:17 11/26/17 08:17 11/26/17 08:17 11/26/17 08:17 Intake and Output: 11/26/17 11/26/17 06:59 18:59 Intake Total 960 Output Total 1250 Balance -290 - Medications Medications: Current Medications Acetylcysteine (Acetylcysteine 20%) 4 ml INH RQ6 [facility] Last Admin: 11/26/17 08:44 Dose: 4 ml Albuterol/Ipratropium (Duoneb 3 Mg/0.5 Mg (3 Ml) Ud) 3 ml INH RQ6 [facility] Last Admin: 11/26/17 08:44 Dose: 3 ml Aspirin (Aspirin Chewable) 81 mg PEG DAILY [facility] Last Admin: 11/26/17 10:19 Dose: 81 mg Bethanechol Chloride (Urecholine) 50 mg PO TID [facility] Last Admin: 11/26/17 14:13 Dose: 50 mg Carvedilol (Coreg) 3.125 mg PEG BID [facility] Last Admin: 11/26/17 10:19 Dose: 3.125 mg Clopidogrel Bisulfate (Plavix) 75 mg PEG DAILY [facility] Last Admin: 11/26/17 10:19 Dose: 75 mg Enoxaparin Sodium (Lovenox) 40 mg SC DAILY [facility] Last Admin: 11/26/17 10:19 Dose: 40 mg Famotidine (Pepcid) 20 mg PEG DAILY [facility] Last Admin: 11/26/17 10:19 Dose: 20 mg Finasteride (Proscar) 5 mg PEG DAILY [facility] Last Admin: 11/26/17 10:19 Dose: 5 mg Levetiracetam (Keppra) 500 mg PEG BID [facility] Last Admin: 11/26/17 10:19 Dose: 500 mg Rosuvastatin Calcium (Crestor) 2.5 mg PO HS [facility] Last Admin: 11/25/17 21:56 Dose: 2.5 mg Saccharomyces Boulardii (Florastor) 250 mg PEG DAILY [facility] Last Admin: 11/26/17 10:19 Dose: 250 mg Scopolamine (Transderm-Scop) 1 patch TD Q3D [facility] Last Admin: 11/26/17 10:19 Dose: 1 patch Tamsulosin HCl (Flomax) 0.4 mg PEG DAILY [facility] Last Admin: 11/26/17 10:19 Dose: 0.4 mg Vitamin A (Vitamin A & D Oint Ud Foilpak) 0.5 ea TOP Q4 PRN PRN Reason: Dry skin Last Admin: 11/17/17 17:09 Dose: 0.5 ea - Labs Labs: 11/23/17 11:40 11/23/17 11:40 PT 10.6 SECONDS (9.7-12.2) 11/24/15 14:10 INR 1.0 11/24/15 14:10 APTT 25 SECONDS (21-34) 11/24/15 14:10 Attending/Attestation - Attestation I have personally seen and examined this patient.: Yes I have fully participated in the care of the patient.: Yes I have reviewed all pertinent clinical information, including history, physical exam and plan: Yes
[2017-11-13] MEDS: Saccharomyces Boulardi 250 mg Cap PEG SCH (10:48)
[2017-11-13] MEDS: Enoxaparin 40 mg Syringe SC SCH (10:48)
[2017-11-13] MEDS: levETIRAcetam 100 mg/ml (5ml) Oral Syringe PEG SCH ×2 (10:48→17:59)
[2017-11-14] MEDS: Acetylcysteine 20% Inhal Soln (4ml) INH SCH ×4 (01:58→19:19)
[2017-11-14] MEDS: Albuterol-Ipratrop 3 mg / 0.5 (3 ml) UD INH SCH ×4 (01:58→19:19)
--- NOTE | 2017-11-14 03:04 | CP.PCM.PN ---
<IsisPancho ashtonenio Cannon - Last Filed: 11/14/17 06:34> Subjective - Date & Time of Evaluation Date of Evaluation: 11/14/17 Time of Evaluation: 06:00 - Subjective Subjective: Medicine progress note for Dr. Moore Patient seen and examined at bedside. No acute events overnight. ROS unable to ascertain due to anoxic brain injury. Objective - Vital Signs/Intake and Output Vital Signs (last 24 hours): Temp Pulse Resp BP Pulse Ox 98.2 F 62 20 126/67 100 11/14/17 00:00 11/14/17 00:00 11/14/17 00:00 11/14/17 00:00 11/14/17 00:00 Intake and Output: 11/13/17 11/14/17 18:59 06:59 Intake Total 940 1760 Output Total 900 300 Balance 40 1460 - Medications Medications: Current Medications Acetylcysteine (Acetylcysteine 20%) 4 ml INH RQ6 [facility] Last Admin: 11/14/17 01:58 Dose: 4 ml Albuterol/Ipratropium (Duoneb 3 Mg/0.5 Mg (3 Ml) Ud) 3 ml INH RQ6 [facility] Last Admin: 11/14/17 01:58 Dose: 3 ml Aspirin (Aspirin Chewable) 81 mg PEG DAILY [facility] Last Admin: 11/13/17 10:48 Dose: 81 mg Carvedilol (Coreg) 3.125 mg PEG BID [facility] Last Admin: 11/13/17 17:59 Dose: 3.125 mg Enoxaparin Sodium (Lovenox) 40 mg SC DAILY [facility] Last Admin: 11/13/17 10:48 Dose: 40 mg Famotidine (Pepcid) 20 mg PEG DAILY [facility] Last Admin: 11/13/17 10:48 Dose: 20 mg Finasteride (Proscar) 5 mg PEG DAILY [facility] Last Admin: 11/13/17 10:48 Dose: 5 mg Levetiracetam (Keppra) 500 mg PEG BID [facility] Last Admin: 11/13/17 17:59 Dose: 500 mg Saccharomyces Boulardii (Florastor) 250 mg PEG DAILY [facility] Last Admin: 11/13/17 10:48 Dose: 250 mg Scopolamine (Transderm-Scop) 1 patch TD Q3D [facility] Last Admin: 11/11/17 10:19 Dose: 1 patch Tamsulosin HCl (Flomax) 0.4 mg PEG DAILY [facility] Last Admin: 11/13/17 10:48 Dose: 0.4 mg Vitamin A (Vitamin A & D Oint Ud Foilpak) 0.5 ea TOP Q4 PRN PRN Reason: Dry skin Last Admin: 11/12/17 09:26 Dose: 0.5 ea - Labs Labs: 11/09/17 07:31 11/09/17 07:31 PT 10.6 SECONDS (9.7-12.2) 11/24/15 14:10 INR 1.0 11/24/15 14:10 APTT 25 SECONDS (21-34) 11/24/15 14:10 - Constitutional Appears: No Acute Distress - Head Exam Head Exam: ATRAUMATIC, NORMAL INSPECTION - Eye Exam Eye Exam: EOMI, Normal appearance - ENT Exam ENT Exam: Mucous Membranes Moist - Neck Exam Additional comments: Trach in place - Respiratory Exam Respiratory Exam: Rhonchi. absent: Respiratory Distress - Cardiovascular Exam Cardiovascular Exam: REGULAR RHYTHM, +S1, +S2 - GI/Abdominal Exam GI & Abdominal Exam: Distended, Soft, Hypoactive Bowel Sounds. absent: Tenderness - Extremities Exam Extremities Exam: absent: Pedal Edema - Neurological Exam Neurological Exam: Altered - Skin Skin Exam: Dry Assessment and Plan - Assessment and Plan (Free Text) Plan: (1) Anoxic encephalopathy Assessment & Plan: s/p cardiac arrest in 05/2015 no acute changes Pt has non spontaneous movements. Continue tube feeds- goal of 60ml/hr, feedings held at night due to fluid overload--> tube feeds 12h Status: Chronic (2) Respiratory failure Assessment & Plan: Trach in place, continue daily monitoring for secretions. No change in management at this time. Continue with aggressive suctioning multiple times a day per respiratory therapist. Monitor for signs of respiratory distress Thick secretions Duoneb 3ml INH Q6 and Mucomyst 4ml INH Q8H Scopolamine 1 patch TD Q3D [facility] Repeat CXR on 05/28/17: linear increased consolidative changes in the right mid- lung zone and left lung base which may represent atelectasis and/or infiltrate. Questionable trace left pleural effusion. moderate venous congestion. cardiomegaly. degenerative changes in the spine and shoulders Repeat CXR 09/28/17: no active disease; no change from previous CXR. Status: Chronic (3) Urinary tract infection Assessment & Plan: Leukocytosis secondary to UTI. Resolved 11/02: WBC within normal range 10/19/17: afebrile, WBC within normal range 10/12: afebrile, WBC within normal range 08/10: WBC 8.2 afebrile Meropenem (started 07/22) - per Dr. Armstrong continue for a total of 2 weeks - Discontinued 08/05/17 ID consult: Dr. Armstrong --> help appreciated Status: Acute (4) Urinary retention Assessment & Plan: 10/12: Condom baker in place; continue to monitor 07/21: NS stopped because tube feeds restarted 07/20: Urine dark in color, monitor, continue NS at 50 ml per hour 07/07/17: Catheter flushed, patient output approx. 500mL within one hour post flush. 06/27/17: Continue bladder massages to aid in voiding. 06/25/17: Patient voids with movement. Continue bladder massages to aid in voiding. 06/23/17: Patient will need to have daily bladder massage to allow for complete voiding 06/17/17: Nursing communication placed in: straight catherization with bladder scan> 100ml 06/08: urinary retention yesterday, was given 40mg lasix iv and patient was able to urinate through condom baker Take note condom cath not always securely in place so Is and Os are approximate as patient does wet bed Ordered- new condom catheter on 05/22/17 Flomax 0.4mg PEG daily Proscar 5mg PEG daily continue Bethanecol 50mg PEG TID- started after persistent retention and found to be effective. monitor I's and O's Check bladder scan for residual urine three times weekly Status: Acute (5) Hypokalemia Assessment & Plan: 11/02: 3.5; given 20mEq via peg 10/28: 3.4; given 40mEq via PEG 10/12: K+ was 3.3; replaced K+ on 08/10: 4.2 Monitor with weekly thursday labs Status: Acute (6) Sacral ulcer Assessment & Plan: Healed Cont with offloading/cushioning/turning Continue frequent turning, protective ointment and skin checks. Status: Resolved (7) History of coronary artery disease Assessment & Plan: s/p cardiac stents on 06/13/15 Cont ASA 81mg via PEG daily Cont Coreg 3.125mg PEG BID Cont Plavix 75 mg PEG daily Status: Acute (8) Seizures Assessment & Plan: Continue Keppra 500mg PEG BID for seizure prophylaxis Monitor for activity Status: Acute (9) Lower extremity edema Assessment & Plan: Improved SCDs in place Pressure ulcer boots on b/l Continue to monitor Status: Acute (10) Prophylactic measure Assessment & Plan: Pepcid 20 mg PEG BID Lovenox 40mg SC daily SCDs and offloading boots continue to turn and reposition q2hrs Continue to monitor medication administrations and clinical presentation weekly labs. vasoline ointment applied to feet prn to prevent hyperkeratosis Please hold feeding from 10pm-6am, placed into nursing communication Vitamin A & D for lips No update at this time. Unchanged clinically as of this morning. Will DW Dr. Teresa Johnson <Jeison Moore - Last Filed: 11/26/17 14:16> Objective - Vital Signs/Intake and Output Vital Signs (last 24 hours): Temp Pulse Resp BP Pulse Ox 98.1 F 62 20 114/64 99 11/26/17 08:17 11/26/17 08:17 11/26/17 08:17 11/26/17 08:17 11/26/17 08:17 Intake and Output: 11/26/17 11/26/17 06:59 18:59 Intake Total 960 Output Total 1250 Balance -290 - Medications Medications: Current Medications Acetylcysteine (Acetylcysteine 20%) 4 ml INH RQ6 [facility] Last Admin: 11/26/17 08:44 Dose: 4 ml Albuterol/Ipratropium (Duoneb 3 Mg/0.5 Mg (3 Ml) Ud) 3 ml INH RQ6 [facility] Last Admin: 11/26/17 08:44 Dose: 3 ml Aspirin (Aspirin Chewable) 81 mg PEG DAILY [facility] Last Admin: 11/26/17 10:19 Dose: 81 mg Bethanechol Chloride (Urecholine) 50 mg PO TID [facility] Last Admin: 11/26/17 14:13 Dose: 50 mg Carvedilol (Coreg) 3.125 mg PEG BID [facility] Last Admin: 11/26/17 10:19 Dose: 3.125 mg Clopidogrel Bisulfate (Plavix) 75 mg PEG DAILY [facility] Last Admin: 11/26/17 10:19 Dose: 75 mg Enoxaparin Sodium (Lovenox) 40 mg SC DAILY [facility] Last Admin: 11/26/17 10:19 Dose: 40 mg Famotidine (Pepcid) 20 mg PEG DAILY [facility] Last Admin: 11/26/17 10:19 Dose: 20 mg Finasteride (Proscar) 5 mg PEG DAILY [facility] Last Admin: 11/26/17 10:19 Dose: 5 mg Levetiracetam (Keppra) 500 mg PEG BID [facility] Last Admin: 11/26/17 10:19 Dose: 500 mg Rosuvastatin Calcium (Crestor) 2.5 mg PO HS [facility] Last Admin: 11/25/17 21:56 Dose: 2.5 mg Saccharomyces Boulardii (Florastor) 250 mg PEG DAILY [facility] Last Admin: 11/26/17 10:19 Dose: 250 mg Scopolamine (Transderm-Scop) 1 patch TD Q3D [facility] Last Admin: 11/26/17 10:19 Dose: 1 patch Tamsulosin HCl (Flomax) 0.4 mg PEG DAILY [facility] Last Admin: 11/26/17 10:19 Dose: 0.4 mg Vitamin A (Vitamin A & D Oint Ud Foilpak) 0.5 ea TOP Q4 PRN PRN Reason: Dry skin Last Admin: 11/17/17 17:09 Dose: 0.5 ea - Labs Labs: 11/23/17 11:40 11/23/17 11:40 PT 10.6 SECONDS (9.7-12.2) 11/24/15 14:10 INR 1.0 11/24/15 14:10 APTT 25 SECONDS (21-34) 11/24/15 14:10 Attending/Attestation - Attestation I have personally seen and examined this patient.: Yes I have fully participated in the care of the patient.: Yes I have reviewed all pertinent clinical information, including history, physical exam and plan: Yes
[2017-11-14] MEDS: Saccharomyces Boulardi 250 mg Cap PEG SCH (10:15)
[2017-11-14] MEDS: Enoxaparin 40 mg Syringe SC SCH (10:15)
[2017-11-14] MEDS: levETIRAcetam 100 mg/ml (5ml) Oral Syringe PEG SCH ×2 (10:15→17:21)
--- NOTE | 2017-11-15 01:45 | CP.PCM.PN ---
Subjective - Date & Time of Evaluation Date of Evaluation: 11/15/17 Time of Evaluation: 06:00 - Subjective Subjective: Medicine progress note for Dr. Moore Patient seen and examined at bedside. No acute events overnight. Cannot obtain ROS due to anoxic brain injury. Objective - Vital Signs/Intake and Output Vital Signs (last 24 hours): Temp Pulse Resp BP Pulse Ox 98 F 78 20 124/84 98 11/14/17 23:40 11/14/17 23:40 11/14/17 23:40 11/14/17 23:40 11/14/17 23:40 Intake and Output: 11/14/17 11/15/17 18:59 06:59 Intake Total 620 Output Total 800 Balance -180 - Medications Medications: Current Medications Acetylcysteine (Acetylcysteine 20%) 4 ml INH RQ6 [facility] Last Admin: 11/14/17 19:19 Dose: 4 ml Albuterol/Ipratropium (Duoneb 3 Mg/0.5 Mg (3 Ml) Ud) 3 ml INH RQ6 [facility] Last Admin: 11/14/17 19:19 Dose: 3 ml Aspirin (Aspirin Chewable) 81 mg PEG DAILY [facility] Last Admin: 11/14/17 10:15 Dose: 81 mg Carvedilol (Coreg) 3.125 mg PEG BID [facility] Last Admin: 11/14/17 17:21 Dose: 3.125 mg Enoxaparin Sodium (Lovenox) 40 mg SC DAILY [facility] Last Admin: 11/14/17 10:15 Dose: 40 mg Famotidine (Pepcid) 20 mg PEG DAILY [facility] Last Admin: 11/14/17 10:15 Dose: 20 mg Finasteride (Proscar) 5 mg PEG DAILY [facility] Last Admin: 11/14/17 10:15 Dose: 5 mg Levetiracetam (Keppra) 500 mg PEG BID [facility] Last Admin: 11/14/17 17:21 Dose: 500 mg Saccharomyces Boulardii (Florastor) 250 mg PEG DAILY [facility] Last Admin: 11/14/17 10:15 Dose: 250 mg Scopolamine (Transderm-Scop) 1 patch TD Q3D [facility] Last Admin: 11/14/17 10:15 Dose: 1 patch Tamsulosin HCl (Flomax) 0.4 mg PEG DAILY [facility] Last Admin: 11/14/17 10:15 Dose: 0.4 mg Vitamin A (Vitamin A & D Oint Ud Foilpak) 0.5 ea TOP Q4 PRN PRN Reason: Dry skin Last Admin: 11/12/17 09:26 Dose: 0.5 ea - Labs Labs: 11/09/17 07:31 11/09/17 07:31 PT 10.6 SECONDS (9.7-12.2) 11/24/15 14:10 INR 1.0 11/24/15 14:10 APTT 25 SECONDS (21-34) 11/24/15 14:10 - Constitutional Appears: No Acute Distress - Head Exam Head Exam: ATRAUMATIC, NORMOCEPHALIC - Eye Exam Eye Exam: Normal appearance - ENT Exam ENT Exam: Mucous Membranes Moist - Neck Exam Additional comments: Trach in place - Respiratory Exam Respiratory Exam: Rhonchi. absent: Respiratory Distress - Cardiovascular Exam Cardiovascular Exam: REGULAR RHYTHM, +S1, +S2 - GI/Abdominal Exam GI & Abdominal Exam: Distended, Soft, Hypoactive Bowel Sounds. absent: Tenderness - Extremities Exam Extremities Exam: absent: Pedal Edema - Neurological Exam Neurological Exam: Altered - Skin Skin Exam: Dry Assessment and Plan - Assessment and Plan (Free Text) Plan: (1) Anoxic encephalopathy Assessment & Plan: s/p cardiac arrest in 05/2015 no acute changes Pt has non spontaneous movements. Continue tube feeds- goal of 60ml/hr, feedings held at night due to fluid overload--> tube feeds 12h Status: Chronic (2) Respiratory failure Assessment & Plan: Trach in place, continue daily monitoring for secretions. No change in management at this time. Continue with aggressive suctioning multiple times a day per respiratory therapist. Monitor for signs of respiratory distress Thick secretions Duoneb 3ml INH Q6 and Mucomyst 4ml INH Q8H Scopolamine 1 patch TD Q3D [facility] Repeat CXR on 05/28/17: linear increased consolidative changes in the right mid- lung zone and left lung base which may represent atelectasis and/or infiltrate. Questionable trace left pleural effusion. moderate venous congestion. cardiomegaly. degenerative changes in the spine and shoulders Repeat CXR 09/28/17: no active disease; no change from previous CXR. Status: Chronic (3) Urinary tract infection Assessment & Plan: Leukocytosis secondary to UTI. Resolved 11/02: WBC within normal range 10/19/17: afebrile, WBC within normal range 10/12: afebrile, WBC within normal range 08/10: WBC 8.2 afebrile Meropenem (started 07/22) - per Dr. Armstrong continue for a total of 2 weeks - Discontinued 08/05/17 ID consult: Dr. Armstrong --> help appreciated Status: Acute (4) Urinary retention Assessment & Plan: 10/12: Condom bakre in place; continue to monitor 07/21: NS stopped because tube feeds restarted 07/20: Urine dark in color, monitor, continue NS at 50 ml per hour 07/07/17: Catheter flushed, patient output approx. 500mL within one hour post flush. 06/27/17: Continue bladder massages to aid in voiding. 06/25/17: Patient voids with movement. Continue bladder massages to aid in voiding. 06/23/17: Patient will need to have daily bladder massage to allow for complete voiding 06/17/17: Nursing communication placed in: straight catherization with bladder scan> 100ml 06/08: urinary retention yesterday, was given 40mg lasix iv and patient was able to urinate through condom baker Take note condom cath not always securely in place so Is and Os are approximate as patient does wet bed Ordered- new condom catheter on 05/22/17 Flomax 0.4mg PEG daily Proscar 5mg PEG daily continue Bethanecol 50mg PEG TID- started after persistent retention and found to be effective. monitor I's and O's Check bladder scan for residual urine three times weekly Status: Acute (5) Hypokalemia Assessment & Plan: 11/02: 3.5; given 20mEq via peg 10/28: 3.4; given 40mEq via PEG 10/12: K+ was 3.3; replaced K+ on 08/10: 4.2 Monitor with weekly thursday labs Status: Acute (6) Sacral ulcer Assessment & Plan: Healed Cont with offloading/cushioning/turning Continue frequent turning, protective ointment and skin checks. Status: Resolved (7) History of coronary artery disease Assessment & Plan: s/p cardiac stents on 06/13/15 Cont ASA 81mg via PEG daily Cont Coreg 3.125mg PEG BID Cont Plavix 75 mg PEG daily Status: Acute (8) Seizures Assessment & Plan: Continue Keppra 500mg PEG BID for seizure prophylaxis Monitor for activity Status: Acute (9) Lower extremity edema Assessment & Plan: Improved SCDs in place Pressure ulcer boots on b/l Continue to monitor Status: Acute (10) Prophylactic measure Assessment & Plan: Pepcid 20 mg PEG BID Lovenox 40mg SC daily SCDs and offloading boots continue to turn and reposition q2hrs Continue to monitor medication administrations and clinical presentation weekly labs. vasoline ointment applied to feet prn to prevent hyperkeratosis Please hold feeding from 10pm-6am, placed into nursing communication Vitamin A & D for lips No update at this time. Unchanged clinically as of this morning. Will RADHA Johnson PGY-1
[2017-11-15] MEDS: Albuterol-Ipratrop 3 mg / 0.5 (3 ml) UD INH SCH ×4 (04:11→20:25)
[2017-11-15] MEDS: Acetylcysteine 20% Inhal Soln (4ml) INH SCH ×4 (04:11→20:25)
[2017-11-15] MEDS: Saccharomyces Boulardi 250 mg Cap PEG SCH (09:08)
[2017-11-15] MEDS: levETIRAcetam 100 mg/ml (5ml) Oral Syringe PEG SCH ×2 (09:08→17:19)
[2017-11-15] MEDS: Enoxaparin 40 mg Syringe SC SCH (09:08)
[2017-11-16] MEDS: Acetylcysteine 20% Inhal Soln (4ml) INH SCH ×4 (01:02→19:39)
[2017-11-16] MEDS: Albuterol-Ipratrop 3 mg / 0.5 (3 ml) UD INH SCH ×4 (01:02→19:39)
--- NOTE | 2017-11-16 01:31 | CP.PCM.PN ---
<Josue Denson - Last Filed: 11/16/17 01:30> Subjective - Date & Time of Evaluation Date of Evaluation: 11/16/17 Time of Evaluation: 01:30 - Subjective Subjective: Patient seen and examined at bedside. No acute events overnight. Cannot obtain ROS due to anoxic brain injury. Objective - Vital Signs/Intake and Output Vital Signs (last 24 hours): Temp Pulse Resp BP Pulse Ox 98.3 F 92 H 20 128/72 98 11/15/17 23:40 11/15/17 23:40 11/15/17 23:40 11/15/17 23:40 11/15/17 23:40 Intake and Output: 11/15/17 11/16/17 18:59 06:59 Intake Total 620 Output Total 200 Balance 420 - Medications Medications: Current Medications Acetylcysteine (Acetylcysteine 20%) 4 ml INH RQ6 [facility] Last Admin: 11/16/17 01:02 Dose: Not Given Albuterol/Ipratropium (Duoneb 3 Mg/0.5 Mg (3 Ml) Ud) 3 ml INH RQ6 [facility] Last Admin: 11/16/17 01:02 Dose: 3 ml Aspirin (Aspirin Chewable) 81 mg PEG DAILY [facility] Last Admin: 11/15/17 09:08 Dose: 81 mg Carvedilol (Coreg) 3.125 mg PEG BID [facility] Last Admin: 11/15/17 17:19 Dose: 3.125 mg Enoxaparin Sodium (Lovenox) 40 mg SC DAILY [facility] Last Admin: 11/15/17 09:08 Dose: 40 mg Famotidine (Pepcid) 20 mg PEG DAILY [facility] Last Admin: 11/15/17 09:08 Dose: 20 mg Finasteride (Proscar) 5 mg PEG DAILY [facility] Last Admin: 11/15/17 09:08 Dose: 5 mg Levetiracetam (Keppra) 500 mg PEG BID [facility] Last Admin: 11/15/17 17:19 Dose: 500 mg Saccharomyces Boulardii (Florastor) 250 mg PEG DAILY [facility] Last Admin: 11/15/17 09:08 Dose: 250 mg Scopolamine (Transderm-Scop) 1 patch TD Q3D [facility] Last Admin: 11/14/17 10:15 Dose: 1 patch Tamsulosin HCl (Flomax) 0.4 mg PEG DAILY [facility] Last Admin: 11/15/17 09:08 Dose: 0.4 mg Vitamin A (Vitamin A & D Oint Ud Foilpak) 0.5 ea TOP Q4 PRN PRN Reason: Dry skin Last Admin: 11/12/17 09:26 Dose: 0.5 ea - Labs Labs: 11/09/17 07:31 11/09/17 07:31 PT 10.6 SECONDS (9.7-12.2) 11/24/15 14:10 INR 1.0 11/24/15 14:10 APTT 25 SECONDS (21-34) 11/24/15 14:10 - Additional Findings Additional findings: - Constitutional Appears: No Acute Distress - Head Exam Head Exam: ATRAUMATIC, NORMOCEPHALIC - Eye Exam Eye Exam: Normal appearance - ENT Exam ENT Exam: Mucous Membranes Moist - Neck Exam Additional comments: Trach in place - Respiratory Exam Respiratory Exam: Rhonchi. absent: Respiratory Distress - Cardiovascular Exam Cardiovascular Exam: REGULAR RHYTHM, +S1, +S2 - GI/Abdominal Exam GI & Abdominal Exam: Distended, Soft, Hypoactive Bowel Sounds. absent: Tenderness - Extremities Exam Extremities Exam: absent: Pedal Edema - Neurological Exam Neurological Exam: Altered - Skin Skin Exam: Dry Assessment and Plan - Assessment and Plan (Free Text) Assessment: (1) Anoxic encephalopathy Assessment & Plan: s/p cardiac arrest in 05/2015 no acute changes Pt has non spontaneous movements. Continue tube feeds- goal of 60ml/hr, feedings held at night due to fluid overload--> tube feeds 12h Status: Chronic (2) Respiratory failure Assessment & Plan: Trach in place, continue daily monitoring for secretions. No change in management at this time. Continue with aggressive suctioning multiple times a day per respiratory therapist. Monitor for signs of respiratory distress Thick secretions Duoneb 3ml INH Q6 and Mucomyst 4ml INH Q8H Scopolamine 1 patch TD Q3D [facility] Repeat CXR on 05/28/17: linear increased consolidative changes in the right mid- lung zone and left lung base which may represent atelectasis and/or infiltrate. Questionable trace left pleural effusion. moderate venous congestion. cardiomegaly. degenerative changes in the spine and shoulders Repeat CXR 09/28/17: no active disease; no change from previous CXR. Status: Chronic (3) Urinary tract infection Assessment & Plan: Leukocytosis secondary to UTI. Resolved 11/02: WBC within normal range 10/19/17: afebrile, WBC within normal range 10/12: afebrile, WBC within normal range 08/10: WBC 8.2 afebrile Meropenem (started 07/22) - per Dr. Armstrong continue for a total of 2 weeks - Discontinued 08/05/17 ID consult: Dr. Armstrong --> help appreciated Status: Acute (4) Urinary retention Assessment & Plan: 10/12: Condom baker in place; continue to monitor 07/21: NS stopped because tube feeds restarted 07/20: Urine dark in color, monitor, continue NS at 50 ml per hour 07/07/17: Catheter flushed, patient output approx. 500mL within one hour post flush. 06/27/17: Continue bladder massages to aid in voiding. 06/25/17: Patient voids with movement. Continue bladder massages to aid in voiding. 06/23/17: Patient will need to have daily bladder massage to allow for complete voiding 06/17/17: Nursing communication placed in: straight catherization with bladder scan> 100ml 06/08: urinary retention yesterday, was given 40mg lasix iv and patient was able to urinate through condom baker Take note condom cath not always securely in place so Is and Os are approximate as patient does wet bed Ordered- new condom catheter on 05/22/17 Flomax 0.4mg PEG daily Proscar 5mg PEG daily continue Bethanecol 50mg PEG TID- started after persistent retention and found to be effective. monitor I's and O's Check bladder scan for residual urine three times weekly Status: Acute (5) Hypokalemia Assessment & Plan: 11/02: 3.5; given 20mEq via peg 10/28: 3.4; given 40mEq via PEG 10/12: K+ was 3.3; replaced K+ on 08/10: 4.2 Monitor with weekly thursday labs Status: Acute (6) Sacral ulcer Assessment & Plan: Healed Cont with offloading/cushioning/turning Continue frequent turning, protective ointment and skin checks. Status: Resolved (7) History of coronary artery disease Assessment & Plan: s/p cardiac stents on 06/13/15 Cont ASA 81mg via PEG daily Cont Coreg 3.125mg PEG BID Cont Plavix 75 mg PEG daily Status: Acute (8) Seizures Assessment & Plan: Continue Keppra 500mg PEG BID for seizure prophylaxis Monitor for activity Status: Acute (9) Lower extremity edema Assessment & Plan: Improved SCDs in place Pressure ulcer boots on b/l Continue to monitor Status: Acute (10) Prophylactic measure Assessment & Plan: Pepcid 20 mg PEG BID Lovenox 40mg SC daily SCDs and offloading boots continue to turn and reposition q2hrs Continue to monitor medication administrations and clinical presentation weekly labs. vasoline ointment applied to feet prn to prevent hyperkeratosis Please hold feeding from 10pm-6am, placed into nursing communication Vitamin A & D for lips No update at this time. Unchanged clinically as of this morning. <Colleen Braswell V - Last Filed: 11/16/17 11:43> Objective - Vital Signs/Intake and Output Vital Signs (last 24 hours): Temp Pulse Resp BP Pulse Ox 97.5 F L 79 20 120/76 99 11/16/17 08:45 11/16/17 08:45 11/16/17 08:45 11/16/17 08:45 11/16/17 08:45 Intake and Output: 11/16/17 11/16/17 06:59 18:59 Intake Total 920 Output Total 450 Balance 470 - Medications Medications: Current Medications Acetylcysteine (Acetylcysteine 20%) 4 ml INH RQ6 [facility] Last Admin: 11/16/17 07:40 Dose: 4 ml Albuterol/Ipratropium (Duoneb 3 Mg/0.5 Mg (3 Ml) Ud) 3 ml INH RQ6 [facility] Last Admin: 11/16/17 07:40 Dose: 3 ml Aspirin (Aspirin Chewable) 81 mg PEG DAILY [facility] Last Admin: 11/16/17 09:24 Dose: 81 mg Carvedilol (Coreg) 3.125 mg PEG BID [facility] Last Admin: 11/16/17 09:24 Dose: 3.125 mg Clopidogrel Bisulfate (Plavix) 75 mg PEG DAILY [facility] Enoxaparin Sodium (Lovenox) 40 mg SC DAILY [facility] Last Admin: 11/16/17 09:23 Dose: 40 mg Famotidine (Pepcid) 20 mg PEG DAILY [facility] Last Admin: 11/16/17 09:24 Dose: 20 mg Finasteride (Proscar) 5 mg PEG DAILY [facility] Last Admin: 11/16/17 09:24 Dose: 5 mg Levetiracetam (Keppra) 500 mg PEG BID [facility] Last Admin: 11/16/17 09:24 Dose: 500 mg Saccharomyces Boulardii (Florastor) 250 mg PEG DAILY [facility] Last Admin: 11/16/17 09:24 Dose: 250 mg Scopolamine (Transderm-Scop) 1 patch TD Q3D [facility] Last Admin: 11/14/17 10:15 Dose: 1 patch Tamsulosin HCl (Flomax) 0.4 mg PEG DAILY [facility] Last Admin: 11/16/17 09:24 Dose: 0.4 mg Vitamin A (Vitamin A & D Oint Ud Foilpak) 0.5 ea TOP Q4 PRN PRN Reason: Dry skin Last Admin: 11/12/17 09:26 Dose: 0.5 ea - Labs Labs: 11/16/17 07:29 11/16/17 07:29 PT 10.6 SECONDS (9.7-12.2) 11/24/15 14:10 INR 1.0 11/24/15 14:10 APTT 25 SECONDS (21-34) 11/24/15 14:10 Attending/Attestation - Attestation I have personally seen and examined this patient.: Yes I have fully participated in the care of the patient.: Yes I have reviewed all pertinent clinical information, including history, physical exam and plan: Yes Notes (Text): patient seen, examined, and case discussed with day-time resident. Unable to review ROS secondary to patient's clinical condition. I've asked the nurse to perform oral care and check bladder scan today. No retention noted. patient has prolonged hospitalization for multiple comorbidities listed below. patient is pending placement. Per case management note from 10/08: pending second opinion by independent examiner. Note: there is no case management/ social on the weekend. Assessment/Plan (1) Anoxic encephalopathy Assessment & Plan: * s/p cardiac arrest in 05/2015 * no acute changes in mental status. * Pt has non spontaneous movements. * patient is currently on 40cc/hr on tube feedings * via PEG * Aspirin 81mg daily * Plavix 75 mg daily * Keppra 500mg bid Status: Chronic (2) Acute Respiratory failure Assessment & Plan: * Trach in place, continue daily monitoring for secretions. No change in management at this time. * 11/16 Discussed with nurse, Tonie Fuentes, secretions have been less and less. * Continue with aggressive suctioning multiple times a day per respiratory therapist if secretions are thickened * Scopolamine 1 patch TD Q3D [facility] * Most recent chest xray: * 09/28/17: no active disease. No significant interval change compared to. Status: Chronic (3) History of Recurrent UTIs Assessment & Plan: * ID consult: Dr. Armstrong --> help appreciated * Patient is afebrile, no apparent leukocytosis * Patient is off IV abx since 08/05/17 * patient has condom catheter and Bladder scan PRN to prevent urinary retention Status: Acute (4) History of Urinary retention Assessment & Plan: * Bethanecol 50mg PEG TID * Bladder scan up to 3x a week to monitor residual urine * patient has had history of recurrent UTIs Status: Chronic (5) Hypokalemia Assessment & Plan: * Monitor and replete Status: Acute (6) History of Sacral ulcer Assessment & Plan: * Healed * Cont with offloading/cushioning/turning * Continue frequent turning, protective ointment and skin checks. Status: Resolved (7) History of coronary artery disease Assessment & Plan: * s/p cardiac stents on 06/13/15 * Cont ASA 81mg via PEG daily * Cont Coreg 3.125mg PEG BID * Cont Plavix 75 mg PEG daily Status: Acute (8) History of Seizures Assessment & Plan: * Continue Keppra 500mg PEG BID for seizure prophylaxis * Monitor for activity Status: Chronic (9) Lower extremity edema Assessment & Plan: * Improved * SCDs in place * Pressure ulcer boots on b/l * Continue to monitor Status: Chronic (10) Prophylactic measure Assessment & Plan: * Pepcid 20 mg PEG BID * Lovenox 40mg SC daily * SCDs and offloading boots * continue to turn and reposition q2hrs * Continue to monitor medication administrations and clinical presentation weekly labs. * vasoline ointment applied to feet prn to prevent hyperkeratos * Please hold feeding from 10pm-6am, placed into nursing communication * Vitamin A & D for lips Disposition: patient has prolonged hospitalization to multiple co-morbidities. per case management 10/08: unable to place patient, pending second opinion by independent examiner.
[2017-11-16 07:44] LABS: BASO # 0.1 K/uL (0.0-0.2); BASO % 0.8 % (0.0-2.0); EOS # 0.5 K/uL (0.0-0.7); EOS % 5.4 % (0.0-4.0); HEMOGLOBIN 11.7 g/dL (12.0-18.0); LYMPH # 2.5 K/uL (1.0-4.3); LYMPH % 29.3 % (20.0-40.0); MEAN CELL VOLUME 89.1 fL (80.0-94.0); MEAN CORPUSCULAR HEMOGLOBIN 29.5 pg (27.0-31.0); MEAN PLATELET VOLUME 9.3 fL (7.2-11.7); MONO # 0.9 K/uL (0.0-0.8); MONO % 10.4 % (0.0-10.0); NEUT # 4.7 K/uL (1.8-7.0); NEUT % 54.1 % (50.0-75.0); RBC 3.98 Mil/uL (4.40-5.90); WHITE BLOOD COUNT 8.7 K/uL (4.8-10.8)
[2017-11-16 08:20] LABS: ALB/GLOB RATIO 0.8 (1.0-2.1); ALBUMIN 3.4 g/dL (3.5-5.0); ALT/SGPT 52 U/L (21-72); AST/SGOT 30 U/L (17-59); BLOOD UREA NITROGEN 12 mg/dL (9-20); CALCIUM 7.3 mg/dl (8.6-10.4); GFR NON-AFRICAN AMERICAN > 60
[2017-11-16] MEDS: Enoxaparin 40 mg Syringe SC SCH (09:23)
[2017-11-16] MEDS: Saccharomyces Boulardi 250 mg Cap PEG SCH (09:24)
[2017-11-16] MEDS: levETIRAcetam 100 mg/ml (5ml) Oral Syringe PEG SCH ×2 (09:24→17:46)
[2017-11-16] MEDS: Rosuvastatin Calcium 2.5 mg Tab PO SCH (21:00)
[2017-11-17] MEDS: Acetylcysteine 20% Inhal Soln (4ml) INH SCH ×4 (01:10→19:53)
[2017-11-17] MEDS: Albuterol-Ipratrop 3 mg / 0.5 (3 ml) UD INH SCH ×4 (01:10→19:53)
--- NOTE | 2017-11-17 07:21 | CP.PCM.PN ---
<Ben Martell R - Last Filed: 11/17/17 07:18> Subjective - Date & Time of Evaluation Date of Evaluation: 11/17/17 Time of Evaluation: 07:21 - Subjective Subjective: Patient seen and examined. Patient has prolonged hospitalization for multiple comorbidities listed below. Patient is pending placement. Unable to review ROS secondary to patient's clinical condition. Objective - Vital Signs/Intake and Output Vital Signs (last 24 hours): Temp Pulse Resp BP Pulse Ox 98.9 F 77 20 119/77 98 11/16/17 23:28 11/16/17 23:28 11/16/17 23:28 11/16/17 23:28 11/16/17 23:28 Intake and Output: 11/17/17 11/17/17 06:59 18:59 Intake Total 920 Output Total 401 Balance 519 - Medications Medications: Current Medications Acetylcysteine (Acetylcysteine 20%) 4 ml INH RQ6 [facility] Last Admin: 11/17/17 01:10 Dose: 4 ml Albuterol/Ipratropium (Duoneb 3 Mg/0.5 Mg (3 Ml) Ud) 3 ml INH RQ6 [facility] Last Admin: 11/17/17 01:10 Dose: 3 ml Aspirin (Aspirin Chewable) 81 mg PEG DAILY [facility] Last Admin: 11/16/17 09:24 Dose: 81 mg Bethanechol Chloride (Urecholine) 50 mg PO TID [facility] Last Admin: 11/16/17 13:09 Dose: 50 mg Carvedilol (Coreg) 3.125 mg PEG BID [facility] Last Admin: 11/16/17 17:46 Dose: 3.125 mg Clopidogrel Bisulfate (Plavix) 75 mg PEG DAILY [facility] Enoxaparin Sodium (Lovenox) 40 mg SC DAILY [facility] Last Admin: 11/16/17 09:23 Dose: 40 mg Famotidine (Pepcid) 20 mg PEG DAILY [facility] Last Admin: 11/16/17 09:24 Dose: 20 mg Finasteride (Proscar) 5 mg PEG DAILY [facility] Last Admin: 11/16/17 09:24 Dose: 5 mg Levetiracetam (Keppra) 500 mg PEG BID [facility] Last Admin: 11/16/17 17:46 Dose: 500 mg Rosuvastatin Calcium (Crestor) 2.5 mg PO [facility] Saccharomyces Boulardii (Florastor) 250 mg PEG DAILY [facility] Last Admin: 11/16/17 09:24 Dose: 250 mg Scopolamine (Transderm-Scop) 1 patch TD Q3D [facility] Last Admin: 11/14/17 10:15 Dose: 1 patch Tamsulosin HCl (Flomax) 0.4 mg PEG DAILY [facility] Last Admin: 11/16/17 09:24 Dose: 0.4 mg Vitamin A (Vitamin A & D Oint Ud Foilpak) 0.5 ea TOP Q4 PRN PRN Reason: Dry skin Last Admin: 11/12/17 09:26 Dose: 0.5 ea - Labs Labs: 11/16/17 07:29 11/16/17 07:29 PT 10.6 SECONDS (9.7-12.2) 11/24/15 14:10 INR 1.0 11/24/15 14:10 APTT 25 SECONDS (21-34) 11/24/15 14:10 - Additional Findings Additional findings: - Constitutional Appears: No Acute Distress - Head Exam Head Exam: ATRAUMATIC, NORMOCEPHALIC - Eye Exam Eye Exam: Normal appearance - ENT Exam ENT Exam: Mucous Membranes Moist - Neck Exam Additional comments: Trach in place - Respiratory Exam Respiratory Exam: Rhonchi. absent: Respiratory Distress - Cardiovascular Exam Cardiovascular Exam: REGULAR RHYTHM, +S1, +S2 - GI/Abdominal Exam GI & Abdominal Exam: Distended, Soft, Hypoactive Bowel Sounds. absent: Tenderness - Extremities Exam Extremities Exam: absent: Pedal Edema - Neurological Exam Neurological Exam: Altered - Skin Skin Exam: Dry Assessment and Plan - Assessment and Plan (Free Text) Assessment: (1) Anoxic encephalopathy Assessment & Plan: * s/p cardiac arrest in 05/2015 * no acute changes in mental status. * Pt has non spontaneous movements. * patient is currently on 40cc/hr on tube feedings * via PEG * Aspirin 81mg daily * Plavix 75 mg daily * Keppra 500mg bid Status: Chronic (2) Acute Respiratory failure Assessment & Plan: * Trach in place, continue daily monitoring for secretions. No change in management at this time. * 11/16 Discussed with nurse, Tonie Fuentes, secretions have been less and less. * Continue with aggressive suctioning multiple times a day per respiratory therapist if secretions are thickened * Scopolamine 1 patch TD Q3D [facility] * Duoneb 3ml INH RQ6 * Acetylcysteine 4ml INH RQ6 * Most recent chest xray: * 09/28/17: no active disease. No significant interval change compared to. Status: Chronic (3) History of Recurrent UTIs Assessment & Plan: * ID consult: Dr. Armstrong --> help appreciated * Patient is afebrile, no apparent leukocytosis * Patient is off IV abx since 08/05/17 * patient has condom catheter and Bladder scan PRN to prevent urinary retention Status: Acute (4) History of Urinary retention Assessment & Plan: * Bethanecol 50mg PEG TID * Tamsulosin 0.4mg PEG QD * Bladder scan up to 3x a week to monitor residual urine * patient has had history of recurrent UTIs Status: Chronic (5) Hypokalemia Assessment & Plan: * Monitor and replete Status: Acute (6) History of Sacral ulcer Assessment & Plan: * Healed * Cont with offloading/cushioning/turning * Continue frequent turning, protective ointment and skin checks. Status: Resolved (7) History of coronary artery disease Assessment & Plan: * s/p cardiac stents on 06/13/15 * Cont ASA 81mg via PEG daily * Cont Coreg 3.125mg PEG BID * Cont Plavix 75 mg PEG daily * Rosuvastatin 2.5mg PO HS Status: Acute (8) History of Seizures Assessment & Plan: * Continue Keppra 500mg PEG BID for seizure prophylaxis * Monitor for activity Status: Chronic (9) Lower extremity edema Assessment & Plan: * Improved * SCDs in place * Pressure ulcer boots on b/l * Continue to monitor Status: Chronic (10) Prophylactic measure Assessment & Plan: * Pepcid 20 mg PEG BID * Lovenox 40mg SC daily * SCDs and offloading boots * Saccharomyces 250mg PEG QD * continue to turn and reposition q2hrs * Continue to monitor medication administrations and clinical presentation weekly labs. * vasoline ointment applied to feet prn to prevent hyperkeratos * Please hold feeding from 10pm-6am, placed into nursing communication * Vitamin A & D for lips Disposition: patient has prolonged hospitalization to multiple co-morbidities. per case management 10/08: unable to place patient, pending second opinion by independent examiner. <Amandeep Chavis - Last Filed: 11/17/17 13:56> Objective - Vital Signs/Intake and Output Vital Signs (last 24 hours): Temp Pulse Resp BP Pulse Ox 97.9 F 83 20 115/74 97 11/17/17 07:40 11/17/17 07:40 11/17/17 07:40 11/17/17 07:40 11/17/17 07:40 Intake and Output: 11/17/17 11/17/17 06:59 18:59 Intake Total 920 380 Output Total 401 500 Balance 519 -120 - Medications Medications: Current Medications Acetylcysteine (Acetylcysteine 20%) 4 ml INH RQ6 [facility] Last Admin: 11/17/17 13:20 Dose: 4 ml Albuterol/Ipratropium (Duoneb 3 Mg/0.5 Mg (3 Ml) Ud) 3 ml INH RQ6 [facility] Last Admin: 11/17/17 13:20 Dose: 3 ml Aspirin (Aspirin Chewable) 81 mg PEG DAILY [facility] Last Admin: 11/17/17 09:29 Dose: 81 mg Bethanechol Chloride (Urecholine) 50 mg PO TID [facility] Last Admin: 11/17/17 13:24 Dose: 50 mg Carvedilol (Coreg) 3.125 mg PEG BID [facility] Last Admin: 11/17/17 09:29 Dose: 3.125 mg Clopidogrel Bisulfate (Plavix) 75 mg PEG DAILY [facility] Last Admin: 11/17/17 09:29 Dose: 75 mg Enoxaparin Sodium (Lovenox) 40 mg SC DAILY [facility] Last Admin: 11/17/17 09:30 Dose: 40 mg Famotidine (Pepcid) 20 mg PEG DAILY [facility] Last Admin: 11/17/17 09:29 Dose: 20 mg Finasteride (Proscar) 5 mg PEG DAILY [facility] Last Admin: 11/17/17 09:29 Dose: 5 mg Levetiracetam (Keppra) 500 mg PEG BID [facility] Last Admin: 11/17/17 09:29 Dose: 500 mg Rosuvastatin Calcium (Crestor) 2.5 mg PO [facility] Saccharomyces Boulardii (Florastor) 250 mg PEG DAILY [facility] Last Admin: 11/17/17 09:29 Dose: 250 mg Scopolamine (Transderm-Scop) 1 patch TD Q3D [facility] Last Admin: 11/17/17 09:30 Dose: 1 patch Tamsulosin HCl (Flomax) 0.4 mg PEG DAILY [facility] Last Admin: 12/26/17 09:29 Dose: 0.4 mg Vitamin A (Vitamin A & D Oint Ud Foilpak) 0.5 ea TOP Q4 PRN PRN Reason: Dry skin Last Admin: 11/12/17 09:26 Dose: 0.5 ea - Labs Labs: 11/16/17 07:29 11/16/17 07:29 PT 10.6 SECONDS (9.7-12.2) 11/24/15 14:10 INR 1.0 11/24/15 14:10 APTT 25 SECONDS (21-34) 11/24/15 14:10 Assessment and Plan (1) Prophylactic measure Status: Acute (2) Anoxic encephalopathy Status: Chronic (3) STEMI (ST elevation myocardial infarction) Status: Acute (4) Cardiac arrest Status: Acute (5) Seizures Status: Acute (6) Respiratory failure Status: Chronic Attending/Attestation - Attestation I have personally seen and examined this patient.: Yes I have fully participated in the care of the patient.: Yes I have reviewed all pertinent clinical information, including history, physical exam and plan: Yes Notes (Text): 11/17/17 13:56 Medical Attending: Patient was seen and examined by me as well Situation is not changed from before Reviewed labwork from yesterday thank you Amandeep Chavis
[2017-11-17] MEDS: levETIRAcetam 100 mg/ml (5ml) Oral Syringe PEG SCH ×2 (09:29→17:08)
[2017-11-17] MEDS: Saccharomyces Boulardi 250 mg Cap PEG SCH (09:29)
[2017-11-17] MEDS: Enoxaparin 40 mg Syringe SC SCH (09:30)
[2017-11-17] MEDS: Vitamins A & D Oint UD Foilpak TOP PRN (17:09)
[2017-11-17] MEDS: Rosuvastatin Calcium 2.5 mg Tab PO SCH (21:43)
[2017-11-18] MEDS: Acetylcysteine 20% Inhal Soln (4ml) INH SCH ×4 (01:43→19:44)
[2017-11-18] MEDS: Albuterol-Ipratrop 3 mg / 0.5 (3 ml) UD INH SCH ×4 (01:43→19:44)
--- NOTE | 2017-11-18 07:24 | CP.PCM.PN ---
<Ben Martell - Last Filed: 11/18/17 07:22> Subjective - Date & Time of Evaluation Date of Evaluation: 11/18/17 Time of Evaluation: 07:23 - Subjective Subjective: PGY-[address] Chavis. Patient seen and examined. Patient has prolonged hospitalization for multiple comorbidities listed below. Patient is pending placement. Unable to review ROS secondary to patient's clinical condition. Objective - Vital Signs/Intake and Output Vital Signs (last 24 hours): Temp Pulse Resp BP Pulse Ox 98.1 F 61 20 96/62 L 99 11/17/17 23:58 11/17/17 23:58 11/17/17 23:58 11/17/17 23:58 11/17/17 23:58 Intake and Output: 11/18/17 11/18/17 06:59 18:59 Intake Total 680 Output Total 300 Balance 380 - Medications Medications: Current Medications Acetylcysteine (Acetylcysteine 20%) 4 ml INH RQ6 [facility] Last Admin: 11/18/17 01:43 Dose: 4 ml Albuterol/Ipratropium (Duoneb 3 Mg/0.5 Mg (3 Ml) Ud) 3 ml INH RQ6 [facility] Last Admin: 11/18/17 01:43 Dose: 3 ml Aspirin (Aspirin Chewable) 81 mg PEG DAILY [facility] Last Admin: 11/17/17 09:29 Dose: 81 mg Bethanechol Chloride (Urecholine) 50 mg PO TID [facility] Last Admin: 11/17/17 17:09 Dose: 50 mg Carvedilol (Coreg) 3.125 mg PEG BID [facility] Last Admin: 11/17/17 17:08 Dose: 3.125 mg Clopidogrel Bisulfate (Plavix) 75 mg PEG DAILY [facility] Last Admin: 11/17/17 09:29 Dose: 75 mg Enoxaparin Sodium (Lovenox) 40 mg SC DAILY [facility] Last Admin: 11/17/17 09:30 Dose: 40 mg Famotidine (Pepcid) 20 mg PEG DAILY [facility] Last Admin: 11/17/17 09:29 Dose: 20 mg Finasteride (Proscar) 5 mg PEG DAILY [facility] Last Admin: 11/17/17 09:29 Dose: 5 mg Levetiracetam (Keppra) 500 mg PEG BID [facility] Last Admin: 12/26/17 17:08 Dose: 500 mg Rosuvastatin Calcium (Crestor) 2.5 mg PO HS [facility] Last Admin: 11/17/17 21:43 Dose: 2.5 mg Saccharomyces Boulardii (Florastor) 250 mg PEG DAILY [facility] Last Admin: 11/17/17 09:29 Dose: 250 mg Scopolamine (Transderm-Scop) 1 patch TD Q3D [facility] Last Admin: 11/17/17 09:30 Dose: 1 patch Tamsulosin HCl (Flomax) 0.4 mg PEG DAILY [facility] Last Admin: 11/17/17 09:29 Dose: 0.4 mg Vitamin A (Vitamin A & D Oint Ud Foilpak) 0.5 ea TOP Q4 PRN PRN Reason: Dry skin Last Admin: 11/17/17 17:09 Dose: 0.5 ea - Labs Labs: 11/16/17 07:29 11/16/17 07:29 PT 10.6 SECONDS (9.7-12.2) 11/24/15 14:10 INR 1.0 11/24/15 14:10 APTT 25 SECONDS (21-34) 11/24/15 14:10 - Additional Findings Additional findings: - Constitutional Appears: No Acute Distress - Head Exam Head Exam: ATRAUMATIC, NORMOCEPHALIC - Eye Exam Eye Exam: Normal appearance - ENT Exam ENT Exam: Mucous Membranes Moist - Neck Exam Additional comments: Trach in place - Respiratory Exam Respiratory Exam: Rhonchi. absent: Respiratory Distress - Cardiovascular Exam Cardiovascular Exam: REGULAR RHYTHM, +S1, +S2 - GI/Abdominal Exam GI & Abdominal Exam: Distended, Soft, Hypoactive Bowel Sounds. absent: Tenderness - Extremities Exam Extremities Exam: absent: Pedal Edema - Neurological Exam Neurological Exam: Altered - Skin Skin Exam: Dry Assessment and Plan - Assessment and Plan (Free Text) Assessment: (1) Anoxic encephalopathy Assessment & Plan: * s/p cardiac arrest in 05/2015 * no acute changes in mental status. * Pt has non spontaneous movements. * patient is currently on 40cc/hr on tube feedings * via PEG * Aspirin 81mg daily * Plavix 75 mg daily * Keppra 500mg bid Status: Chronic (2) Acute Respiratory failure Assessment & Plan: * Trach in place, continue daily monitoring for secretions. No change in management at this time. * 11/16 Discussed with nurse, Tonie Fuentes, secretions have been less and less. * Continue with aggressive suctioning multiple times a day per respiratory therapist if secretions are thickened * Scopolamine 1 patch TD Q3D [facility] * Duoneb 3ml INH RQ6 * Acetylcysteine 4ml INH RQ6 * Most recent chest xray: * 09/28/17: no active disease. No significant interval change compared to. Status: Chronic (3) History of Recurrent UTIs Assessment & Plan: * ID consult: Dr. Armstrong --> help appreciated * Patient is afebrile, no apparent leukocytosis * Patient is off IV abx since 08/05/17 * patient has condom catheter and Bladder scan PRN to prevent urinary retention Status: Acute (4) History of Urinary retention Assessment & Plan: * Bethanecol 50mg PEG TID * Tamsulosin 0.4mg PEG QD * Bladder scan up to 3x a week to monitor residual urine * patient has had history of recurrent UTIs Status: Chronic (5) Hypokalemia Assessment & Plan: * Monitor and replete Status: Acute (6) History of Sacral ulcer Assessment & Plan: * Healed * Cont with offloading/cushioning/turning * Continue frequent turning, protective ointment and skin checks. Status: Resolved (7) History of coronary artery disease Assessment & Plan: * s/p cardiac stents on 06/13/15 * Cont ASA 81mg via PEG daily * Cont Coreg 3.125mg PEG BID * Cont Plavix 75 mg PEG daily * Rosuvastatin 2.5mg PO HS Status: Acute (8) History of Seizures Assessment & Plan: * Continue Keppra 500mg PEG BID for seizure prophylaxis * Monitor for activity Status: Chronic (9) Lower extremity edema Assessment & Plan: * Improved * SCDs in place * Pressure ulcer boots on b/l * Continue to monitor Status: Chronic (10) Prophylactic measure Assessment & Plan: * Pepcid 20 mg PEG BID * Lovenox 40mg SC daily * SCDs and offloading boots * Saccharomyces 250mg PEG QD * continue to turn and reposition q2hrs * Continue to monitor medication administrations and clinical presentation weekly labs. * vasoline ointment applied to feet prn to prevent hyperkeratos * Please hold feeding from 10pm-6am, placed into nursing communication * Vitamin A & D for lips Disposition: patient has prolonged hospitalization to multiple co-morbidities. per case management 10/08: unable to place patient, pending second opinion by independent examiner. <ChavisAmandeep lópez H - Last Filed: 11/18/17 11:53> Objective - Vital Signs/Intake and Output Vital Signs (last 24 hours): Temp Pulse Resp BP Pulse Ox 98.7 F 77 20 117/76 99 11/18/17 08:00 11/18/17 08:00 11/18/17 08:00 11/18/17 08:00 11/18/17 08:00 Intake and Output: 11/18/17 11/18/17 06:59 18:59 Intake Total 680 Output Total 300 Balance 380 - Medications Medications: Current Medications Acetylcysteine (Acetylcysteine 20%) 4 ml INH RQ6 [facility] Last Admin: 11/18/17 08:47 Dose: 4 ml Albuterol/Ipratropium (Duoneb 3 Mg/0.5 Mg (3 Ml) Ud) 3 ml INH RQ6 [facility] Last Admin: 11/18/17 08:46 Dose: 3 ml Aspirin (Aspirin Chewable) 81 mg PEG DAILY [facility] Last Admin: 11/18/17 10:14 Dose: 81 mg Bethanechol Chloride (Urecholine) 50 mg PO TID [facility] Last Admin: 11/18/17 10:14 Dose: 50 mg Carvedilol (Coreg) 3.125 mg PEG BID [facility] Last Admin: 11/18/17 10:14 Dose: 3.125 mg Clopidogrel Bisulfate (Plavix) 75 mg PEG DAILY [facility] Last Admin: 11/18/17 10:14 Dose: 75 mg Enoxaparin Sodium (Lovenox) 40 mg SC DAILY [facility] Last Admin: 11/18/17 10:14 Dose: 40 mg Famotidine (Pepcid) 20 mg PEG DAILY [facility] Last Admin: 11/18/17 10:14 Dose: 20 mg Finasteride (Proscar) 5 mg PEG DAILY [facility] Last Admin: 11/18/17 10:14 Dose: 5 mg Levetiracetam (Keppra) 500 mg PEG BID [facility] Last Admin: 11/18/17 10:14 Dose: 500 mg Rosuvastatin Calcium (Crestor) 2.5 mg PO HS [facility] Last Admin: 11/17/17 21:43 Dose: 2.5 mg Saccharomyces Boulardii (Florastor) 250 mg PEG DAILY [facility] Last Admin: 11/18/17 10:14 Dose: 250 mg Scopolamine (Transderm-Scop) 1 patch TD Q3D [facility] Last Admin: 11/17/17 09:30 Dose: 1 patch Tamsulosin HCl (Flomax) 0.4 mg PEG DAILY [facility] Last Admin: 11/18/17 10:14 Dose: 0.4 mg Vitamin A (Vitamin A & D Oint Ud Foilpak) 0.5 ea TOP Q4 PRN PRN Reason: Dry skin Last Admin: 11/17/17 17:09 Dose: 0.5 ea - Labs Labs: 11/16/17 07:29 11/16/17 07:29 PT 10.6 SECONDS (9.7-12.2) 11/24/15 14:10 INR 1.0 11/24/15 14:10 APTT 25 SECONDS (21-34) 11/24/15 14:10 Assessment and Plan (1) Prophylactic measure Status: Acute (2) Anoxic encephalopathy Status: Chronic (3) STEMI (ST elevation myocardial infarction) Status: Acute (4) Cardiac arrest Status: Acute (5) Seizures Status: Acute (6) Respiratory failure Status: Chronic Attending/Attestation - Attestation I have personally seen and examined this patient.: Yes I have fully participated in the care of the patient.: Yes I have reviewed all pertinent clinical information, including history, physical exam and plan: Yes Notes (Text): 11/18/17 11:52 Medical attending: Patient was seen and examined by me as well Situation is unchanged from before. Agree with the above by resident Amandeep Chavis
[2017-11-18] MEDS: Saccharomyces Boulardi 250 mg Cap PEG SCH (10:14)
[2017-11-18] MEDS: levETIRAcetam 100 mg/ml (5ml) Oral Syringe PEG SCH ×2 (10:14→17:28)
[2017-11-18] MEDS: Enoxaparin 40 mg Syringe SC SCH (10:14)
[2017-11-18] MEDS: Rosuvastatin Calcium 2.5 mg Tab PO SCH (21:25)
[2017-11-19] MEDS: Acetylcysteine 20% Inhal Soln (4ml) INH SCH ×4 (01:52→19:11)
[2017-11-19] MEDS: Albuterol-Ipratrop 3 mg / 0.5 (3 ml) UD INH SCH ×4 (01:52→19:11)
--- NOTE | 2017-11-19 06:55 | CP.PCM.PN ---
Subjective - Date & Time of Evaluation Date of Evaluation: 11/19/17 Time of Evaluation: 06:51 - Subjective Subjective: PGY-[address] Chavis. Patient seen and examined. Patient has prolonged hospitalization for multiple comorbidities listed below. Patient is pending placement. Unable to review ROS secondary to patient's clinical condition. Objective - Vital Signs/Intake and Output Vital Signs (last 24 hours): Temp Pulse Resp BP Pulse Ox 98.3 F 64 20 107/73 99 11/18/17 23:27 11/18/17 23:27 11/18/17 23:27 11/18/17 23:27 11/18/17 23:27 Intake and Output: 11/18/17 11/19/17 18:59 06:59 Intake Total 920 720 Output Total 75 100 Balance 845 620 - Medications Medications: Current Medications Acetylcysteine (Acetylcysteine 20%) 4 ml INH RQ6 [facility] Last Admin: 11/19/17 01:52 Dose: 4 ml Albuterol/Ipratropium (Duoneb 3 Mg/0.5 Mg (3 Ml) Ud) 3 ml INH RQ6 [facility] Last Admin: 11/19/17 01:52 Dose: 3 ml Aspirin (Aspirin Chewable) 81 mg PEG DAILY [facility] Last Admin: 11/18/17 10:14 Dose: 81 mg Bethanechol Chloride (Urecholine) 50 mg PO TID [facility] Last Admin: 11/18/17 17:28 Dose: 50 mg Carvedilol (Coreg) 3.125 mg PEG BID [facility] Last Admin: 11/18/17 17:27 Dose: 3.125 mg Clopidogrel Bisulfate (Plavix) 75 mg PEG DAILY [facility] Last Admin: 11/18/17 10:14 Dose: 75 mg Enoxaparin Sodium (Lovenox) 40 mg SC DAILY [facility] Last Admin: 11/18/17 10:14 Dose: 40 mg Famotidine (Pepcid) 20 mg PEG DAILY [facility] Last Admin: 11/18/17 10:14 Dose: 20 mg Finasteride (Proscar) 5 mg PEG DAILY [facility] Last Admin: 11/18/17 10:14 Dose: 5 mg Levetiracetam (Keppra) 500 mg PEG BID [facility] Last Admin: 11/18/17 17:28 Dose: 500 mg Rosuvastatin Calcium (Crestor) 2.5 mg PO HS [facility] Last Admin: 11/18/17 21:25 Dose: 2.5 mg Saccharomyces Boulardii (Florastor) 250 mg PEG DAILY [facility] Last Admin: 11/18/17 10:14 Dose: 250 mg Scopolamine (Transderm-Scop) 1 patch TD Q3D [facility] Last Admin: 11/17/17 09:30 Dose: 1 patch Tamsulosin HCl (Flomax) 0.4 mg PEG DAILY [facility] Last Admin: 11/18/17 10:14 Dose: 0.4 mg Vitamin A (Vitamin A & D Oint Ud Foilpak) 0.5 ea TOP Q4 PRN PRN Reason: Dry skin Last Admin: 11/17/17 17:09 Dose: 0.5 ea - Labs Labs: 11/16/17 07:29 11/16/17 07:29 PT 10.6 SECONDS (9.7-12.2) 11/24/15 14:10 INR 1.0 11/24/15 14:10 APTT 25 SECONDS (21-34) 11/24/15 14:10 - Additional Findings Additional findings: - Constitutional Appears: No Acute Distress - Head Exam Head Exam: ATRAUMATIC, NORMOCEPHALIC - Eye Exam Eye Exam: Normal appearance - ENT Exam ENT Exam: Mucous Membranes Moist - Neck Exam Additional comments: Trach in place - Respiratory Exam Respiratory Exam: Rhonchi. absent: Respiratory Distress - Cardiovascular Exam Cardiovascular Exam: REGULAR RHYTHM, +S1, +S2 - GI/Abdominal Exam GI & Abdominal Exam: Distended, Soft, Hypoactive Bowel Sounds. absent: Tenderness - Extremities Exam Extremities Exam: absent: Pedal Edema - Neurological Exam Neurological Exam: Altered - Skin Skin Exam: Dry Assessment and Plan - Assessment and Plan (Free Text) Assessment: (1) Anoxic encephalopathy Assessment & Plan: * s/p cardiac arrest in 05/2015 * no acute changes in mental status. * Pt has non spontaneous movements. * patient is currently on 40cc/hr on tube feedings * via PEG * Aspirin 81mg daily * Plavix 75 mg daily * Keppra 500mg bid Status: Chronic (2) Acute Respiratory failure Assessment & Plan: * Trach in place, continue daily monitoring for secretions. No change in management at this time. * 11/16 Discussed with nurse, Tonie Fuentes, secretions have been less and less. * Continue with aggressive suctioning multiple times a day per respiratory therapist if secretions are thickened * Scopolamine 1 patch TD Q3D [facility] * Duoneb 3ml INH RQ6 * Acetylcysteine 4ml INH RQ6 * Most recent chest xray: * 09/28/17: no active disease. No significant interval change compared to. Status: Chronic (3) History of Recurrent UTIs Assessment & Plan: * ID consult: Dr. Armstrong --> help appreciated * Patient is afebrile, no apparent leukocytosis * Patient is off IV abx since 08/05/17 * patient has condom catheter and Bladder scan PRN to prevent urinary retention Status: Acute (4) History of Urinary retention Assessment & Plan: * Bethanecol 50mg PEG TID * Tamsulosin 0.4mg PEG QD * Bladder scan up to 3x a week to monitor residual urine * patient has had history of recurrent UTIs Status: Chronic (5) Hypokalemia Assessment & Plan: * Monitor and replete Status: Acute (6) History of Sacral ulcer Assessment & Plan: * Healed * Cont with offloading/cushioning/turning * Continue frequent turning, protective ointment and skin checks. Status: Resolved (7) History of coronary artery disease Assessment & Plan: * s/p cardiac stents on 06/13/15 * Cont ASA 81mg via PEG daily * Cont Coreg 3.125mg PEG BID * Cont Plavix 75 mg PEG daily * Rosuvastatin 2.5mg PO HS Status: Acute (8) History of Seizures Assessment & Plan: * Continue Keppra 500mg PEG BID for seizure prophylaxis * Monitor for activity Status: Chronic (9) Lower extremity edema Assessment & Plan: * Improved * SCDs in place * Pressure ulcer boots on b/l * Continue to monitor Status: Chronic (10) Prophylactic measure Assessment & Plan: * Pepcid 20 mg PEG BID * Lovenox 40mg SC daily * SCDs and offloading boots * Saccharomyces 250mg PEG QD * continue to turn and reposition q2hrs * Continue to monitor medication administrations and clinical presentation weekly labs. * vasoline ointment applied to feet prn to prevent hyperkeratos * Please hold feeding from 10pm-6am, placed into nursing communication * Vitamin A & D for lips Disposition: patient has prolonged hospitalization to multiple co-morbidities. per case management 10/08: unable to place patient, pending second opinion by independent examiner.
[2017-11-19] MEDS: Saccharomyces Boulardi 250 mg Cap PEG SCH (10:00)
[2017-11-19] MEDS: Enoxaparin 40 mg Syringe SC SCH (10:00)
[2017-11-19] MEDS: levETIRAcetam 100 mg/ml (5ml) Oral Syringe PEG SCH ×2 (10:01→17:54)
[2017-11-19] MEDS: Rosuvastatin Calcium 2.5 mg Tab PO SCH (21:21)
[2017-11-20] MEDS: Acetylcysteine 20% Inhal Soln (4ml) INH SCH ×4 (01:39→20:25)
[2017-11-20] MEDS: Albuterol-Ipratrop 3 mg / 0.5 (3 ml) UD INH SCH ×4 (01:39→20:25)
--- NOTE | 2017-11-20 07:18 | CP.PCM.PN ---
Subjective - Date & Time of Evaluation Date of Evaluation: 11/20/17 Time of Evaluation: 07:16 - Subjective Subjective: PGY1 Medicine Note for Dr. Chavis Patient seen and examined this morning. No acute events overnight. 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 ROS unattainable. Objective - Vital Signs/Intake and Output Vital Signs (last 24 hours): Temp Pulse Resp BP Pulse Ox 98.3 F 75 20 102/65 99 11/19/17 23:37 11/19/17 23:37 11/19/17 23:37 11/19/17 23:37 11/19/17 23:37 Intake and Output: 11/20/17 11/20/17 06:59 18:59 Intake Total 1400 Output Total 650 Balance 750 - Medications Medications: Current Medications Acetylcysteine (Acetylcysteine 20%) 4 ml INH RQ6 [facility] Last Admin: 11/20/17 01:39 Dose: 4 ml Albuterol/Ipratropium (Duoneb 3 Mg/0.5 Mg (3 Ml) Ud) 3 ml INH RQ6 [facility] Last Admin: 11/20/17 01:39 Dose: 3 ml Aspirin (Aspirin Chewable) 81 mg PEG DAILY [facility] Last Admin: 11/19/17 10:00 Dose: 81 mg Bethanechol Chloride (Urecholine) 50 mg PO TID [facility] Last Admin: 11/19/17 17:55 Dose: 50 mg Carvedilol (Coreg) 3.125 mg PEG BID [facility] Last Admin: 11/19/17 17:54 Dose: 3.125 mg Clopidogrel Bisulfate (Plavix) 75 mg PEG DAILY [facility] Last Admin: 11/19/17 10:00 Dose: 75 mg Enoxaparin Sodium (Lovenox) 40 mg SC DAILY [facility] Last Admin: 11/19/17 10:00 Dose: 40 mg Famotidine (Pepcid) 20 mg PEG DAILY [facility] Last Admin: 11/19/17 10:00 Dose: 20 mg Finasteride (Proscar) 5 mg PEG DAILY [facility] Last Admin: 11/19/17 10:01 Dose: 5 mg Levetiracetam (Keppra) 500 mg PEG BID [facility] Last Admin: 11/19/17 17:54 Dose: 500 mg Rosuvastatin Calcium (Crestor) 2.5 mg PO HS [facility] Last Admin: 11/19/17 21:21 Dose: 2.5 mg Saccharomyces Boulardii (Florastor) 250 mg PEG DAILY [facility] Last Admin: 11/19/17 10:00 Dose: 250 mg Scopolamine (Transderm-Scop) 1 patch TD Q3D [facility] Last Admin: 11/17/17 09:30 Dose: 1 patch Tamsulosin HCl (Flomax) 0.4 mg PEG DAILY [facility] Last Admin: 11/19/17 10:00 Dose: 0.4 mg Vitamin A (Vitamin A & D Oint Ud Foilpak) 0.5 ea TOP Q4 PRN PRN Reason: Dry skin Last Admin: 11/17/17 17:09 Dose: 0.5 ea - Labs Labs: 11/16/17 07:29 11/16/17 07:29 PT 10.6 SECONDS (9.7-12.2) 11/24/15 14:10 INR 1.0 11/24/15 14:10 APTT 25 SECONDS (21-34) 11/24/15 14:10 - Constitutional Appears: No Acute Distress - Head Exam Head Exam: ATRAUMATIC, NORMOCEPHALIC - Eye Exam Eye Exam: Normal appearance - ENT Exam ENT Exam: Mucous Membranes Moist - Neck Exam Additional comments: Trach in place - Respiratory Exam Respiratory Exam: Rhonchi. absent: Accessory Muscle Use, Respiratory Distress Additional comments: no abnormal growth in tubing - Cardiovascular Exam Cardiovascular Exam: REGULAR RHYTHM, +S1 - GI/Abdominal Exam GI & Abdominal Exam: Soft. absent: Distended, Firm, Guarding, Rigid, Tenderness - Extremities Exam Extremities Exam: absent: Calf Tenderness, Pedal Edema Additional comments: SCDs and pressure ulcer boots in place. - Neurological Exam Neurological Exam: Altered (Patient is non-verbal from anoxic brain injury sustained on 05/2015.) - Skin Skin Exam: Dry Assessment and Plan - Assessment and Plan (Free Text) Plan: (1) Anoxic encephalopathy Assessment & Plan: * s/p cardiac arrest in 05/2015 * no acute changes in mental status. * Pt has non spontaneous movements. * patient is currently on 40cc/hr on tube feedings * via PEG * Aspirin 81mg daily * Plavix 75 mg daily * Keppra 500mg bid Status: Chronic (2) Acute Respiratory failure Assessment & Plan: * Trach in place, continue daily monitoring for secretions. No change in management at this time. * 11/16 Discussed with nurse, Tonie Fuentes, secretions have been less and less. * Continue with aggressive suctioning multiple times a day per respiratory therapist if secretions are thickened * Scopolamine 1 patch TD Q3D [facility] * Duoneb 3ml INH RQ6 * Acetylcysteine 4ml INH RQ6 * Most recent chest xray: * 09/28/17: no active disease. No significant interval change compared to. Status: Chronic (3) History of Recurrent UTIs Assessment & Plan: * ID consult: Dr. Armstrong --> help appreciated * Patient is afebrile, no apparent leukocytosis * Patient is off IV abx since 08/05/17 * patient has condom catheter and Bladder scan PRN to prevent urinary retention Status: Acute (4) History of Urinary retention Assessment & Plan: * Bethanecol 50mg PEG TID * Tamsulosin 0.4mg PEG QD * Bladder scan up to 3x a week to monitor residual urine * patient has had history of recurrent UTIs Status: Chronic (5) Hypokalemia Assessment & Plan: * Monitor and replete Status: Acute (6) History of Sacral ulcer Assessment & Plan: * Healed * Cont with offloading/cushioning/turning * Continue frequent turning, protective ointment and skin checks. Status: Resolved (7) History of coronary artery disease Assessment & Plan: * s/p cardiac stents on 06/13/15 * Cont ASA 81mg via PEG daily * Cont Coreg 3.125mg PEG BID * Cont Plavix 75 mg PEG daily * Rosuvastatin 2.5mg PO HS Status: Acute (8) History of Seizures Assessment & Plan: * Continue Keppra 500mg PEG BID for seizure prophylaxis * Monitor for activity Status: Chronic (9) Lower extremity edema Assessment & Plan: * Improved * SCDs in place * Pressure ulcer boots on b/l * Continue to monitor Status: Chronic (10) Prophylactic measure Assessment & Plan: * Pepcid 20 mg PEG BID * Lovenox 40mg SC daily * SCDs and offloading boots * Saccharomyces 250mg PEG QD * continue to turn and reposition q2hrs * Continue to monitor medication administrations and clinical presentation weekly labs. * vasoline ointment applied to feet prn to prevent hyperkeratos * Please hold feeding from 10pm-6am, placed into nursing communication * Vitamin A & D for lips Disposition: patient has prolonged hospitalization to multiple co-morbidities. per case management 10/08: unable to place patient, pending second opinion by independent examiner. Case discussed with Dr. Palmira Melendez Carola PGY1
[2017-11-20] MEDS: levETIRAcetam 100 mg/ml (5ml) Oral Syringe PEG SCH ×2 (10:37→17:51)
[2017-11-20] MEDS: Saccharomyces Boulardi 250 mg Cap PEG SCH (10:37)
[2017-11-20] MEDS: Enoxaparin 40 mg Syringe SC SCH (10:59)
[2017-11-20] MEDS: Rosuvastatin Calcium 2.5 mg Tab PO SCH (21:35)
--- NOTE | 2017-11-21 01:30 | CP.PCM.PN ---
Subjective - Date & Time of Evaluation Date of Evaluation: 11/21/17 Time of Evaluation: 01:28 - Subjective Subjective: PGY1 Medicine Note for Dr. Chavis Patient seen and examined this morning. No acute events overnight. 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 ROS unattainable. Objective - Vital Signs/Intake and Output Vital Signs (last 24 hours): Temp Pulse Resp BP Pulse Ox 97.3 F L 68 20 113/67 100 11/21/17 00:00 11/21/17 00:00 11/21/17 00:00 11/21/17 00:00 11/21/17 00:00 Intake and Output: 11/20/17 11/21/17 18:59 06:59 Intake Total 920 920 Output Total 50 500 Balance 870 420 - Medications Medications: Current Medications Acetylcysteine (Acetylcysteine 20%) 4 ml INH RQ6 [facility] Last Admin: 11/20/17 20:25 Dose: 4 ml Albuterol/Ipratropium (Duoneb 3 Mg/0.5 Mg (3 Ml) Ud) 3 ml INH RQ6 [facility] Last Admin: 11/20/17 20:25 Dose: 3 ml Aspirin (Aspirin Chewable) 81 mg PEG DAILY [facility] Last Admin: 11/20/17 10:36 Dose: 81 mg Bethanechol Chloride (Urecholine) 50 mg PO TID [facility] Last Admin: 11/20/17 17:51 Dose: 50 mg Carvedilol (Coreg) 3.125 mg PEG BID [facility] Last Admin: 11/20/17 17:51 Dose: 3.125 mg Clopidogrel Bisulfate (Plavix) 75 mg PEG DAILY [facility] Last Admin: 11/20/17 10:36 Dose: 75 mg Enoxaparin Sodium (Lovenox) 40 mg SC DAILY [facility] Last Admin: 11/20/17 10:59 Dose: 40 mg Famotidine (Pepcid) 20 mg PEG DAILY [facility] Last Admin: 11/20/17 10:36 Dose: 20 mg Finasteride (Proscar) 5 mg PEG DAILY [facility] Last Admin: 11/20/17 10:37 Dose: 5 mg Levetiracetam (Keppra) 500 mg PEG BID [facility] Last Admin: 11/20/17 17:51 Dose: 500 mg Rosuvastatin Calcium (Crestor) 2.5 mg PO HS [facility] Last Admin: 11/20/17 21:35 Dose: 2.5 mg Saccharomyces Boulardii (Florastor) 250 mg PEG DAILY [facility] Last Admin: 11/20/17 10:37 Dose: 250 mg Scopolamine (Transderm-Scop) 1 patch TD Q3D [facility] Last Admin: 11/20/17 10:40 Dose: 1 patch Tamsulosin HCl (Flomax) 0.4 mg PEG DAILY [facility] Last Admin: 11/20/17 10:39 Dose: 0.4 mg Vitamin A (Vitamin A & D Oint Ud Foilpak) 0.5 ea TOP Q4 PRN PRN Reason: Dry skin Last Admin: 11/17/17 17:09 Dose: 0.5 ea - Labs Labs: 11/16/17 07:29 11/16/17 07:29 PT 10.6 SECONDS (9.7-12.2) 11/24/15 14:10 INR 1.0 11/24/15 14:10 APTT 25 SECONDS (21-34) 11/24/15 14:10 - Additional Findings Additional findings: - Constitutional Appears: No Acute Distress - Head Exam Head Exam: ATRAUMATIC, NORMOCEPHALIC - Eye Exam Eye Exam: Normal appearance - ENT Exam ENT Exam: Mucous Membranes Moist - Neck Exam Additional comments: Trach in place - Respiratory Exam Respiratory Exam: Rhonchi. absent: Accessory Muscle Use, Respiratory Distress Additional comments: no abnormal growth in tubing - Cardiovascular Exam Cardiovascular Exam: REGULAR RHYTHM, +S1 - GI/Abdominal Exam GI & Abdominal Exam: Soft. absent: Distended, Firm, Guarding, Rigid, Tenderness - Extremities Exam Extremities Exam: absent: Calf Tenderness, Pedal Edema Additional comments: SCDs and pressure ulcer boots in place. - Neurological Exam Neurological Exam: Altered (Patient is non-verbal from anoxic brain injury sustained on 05/2015.) - Skin Skin Exam: Dry Assessment and Plan - Assessment and Plan (Free Text) Assessment: (1) Anoxic encephalopathy Assessment & Plan: * s/p cardiac arrest in 05/2015 * no acute changes in mental status. * Pt has non spontaneous movements. * patient is currently on 40cc/hr on tube feedings * via PEG * Aspirin 81mg daily * Plavix 75 mg daily * Keppra 500mg bid Status: Chronic (2) Acute Respiratory failure Assessment & Plan: * Trach in place, continue daily monitoring for secretions. No change in management at this time. * 11/16 Discussed with nurse, Tonie Fuentes, secretions have been less and less. * Continue with aggressive suctioning multiple times a day per respiratory therapist if secretions are thickened * Scopolamine 1 patch TD Q3D JOO * Duoneb 3ml INH RQ6 * Acetylcysteine 4ml INH RQ6 * Most recent chest xray: * 09/28/17: no active disease. No significant interval change compared to. Status: Chronic (3) History of Recurrent UTIs Assessment & Plan: * ID consult: Dr. Armstrong --> help appreciated * Patient is afebrile, no apparent leukocytosis * Patient is off IV abx since 08/05/17 * patient has condom catheter and Bladder scan PRN to prevent urinary retention Status: Acute (4) History of Urinary retention Assessment & Plan: * Bethanecol 50mg PEG TID * Tamsulosin 0.4mg PEG QD * Bladder scan up to 3x a week to monitor residual urine * patient has had history of recurrent UTIs Status: Chronic (5) Hypokalemia Assessment & Plan: * Monitor and replete Status: Acute (6) History of Sacral ulcer Assessment & Plan: * Healed * Cont with offloading/cushioning/turning * Continue frequent turning, protective ointment and skin checks. Status: Resolved (7) History of coronary artery disease Assessment & Plan: * s/p cardiac stents on 06/13/15 * Cont ASA 81mg via PEG daily * Cont Coreg 3.125mg PEG BID * Cont Plavix 75 mg PEG daily * Rosuvastatin 2.5mg PO HS Status: Acute (8) History of Seizures Assessment & Plan: * Continue Keppra 500mg PEG BID for seizure prophylaxis * Monitor for activity Status: Chronic (9) Lower extremity edema Assessment & Plan: * Improved * SCDs in place * Pressure ulcer boots on b/l * Continue to monitor Status: Chronic (10) Prophylactic measure Assessment & Plan: * Pepcid 20 mg PEG BID * Lovenox 40mg SC daily * SCDs and offloading boots * Saccharomyces 250mg PEG QD * continue to turn and reposition q2hrs * Continue to monitor medication administrations and clinical presentation weekly labs. * vasoline ointment applied to feet prn to prevent hyperkeratos * Please hold feeding from 10pm-6am, placed into nursing communication * Vitamin A & D for lips Disposition: patient has prolonged hospitalization to multiple co-morbidities. per case management 10/08: unable to place patient, pending second opinion by independent examiner. Case discussed with Dr. Chavis
[2017-11-21] MEDS: Acetylcysteine 20% Inhal Soln (4ml) INH SCH ×4 (01:35→20:04)
[2017-11-21] MEDS: Albuterol-Ipratrop 3 mg / 0.5 (3 ml) UD INH SCH ×4 (01:38→20:04)
[2017-11-21] MEDS: levETIRAcetam 100 mg/ml (5ml) Oral Syringe PEG SCH ×2 (09:39→17:39)
[2017-11-21] MEDS: Enoxaparin 40 mg Syringe SC SCH (09:39)
[2017-11-21] MEDS: Saccharomyces Boulardi 250 mg Cap PEG SCH (09:39)
[2017-11-21] MEDS: Rosuvastatin Calcium 2.5 mg Tab PO SCH (22:07)
--- NOTE | 2017-11-22 00:57 | CP.PCM.PN ---
<Ben Martell - Last Filed: 11/22/17 00:57> Subjective - Date & Time of Evaluation Date of Evaluation: 11/22/17 Time of Evaluation: 00:57 - Subjective Subjective: PGY1 Medicine Note for Dr. Chavis Patient seen and examined this morning. No acute events overnight. 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 ROS unattainable. Objective - Vital Signs/Intake and Output Vital Signs (last 24 hours): Temp Pulse Resp BP Pulse Ox 98.2 F 69 18 118/76 98 11/21/17 16:00 11/21/17 16:00 11/21/17 16:00 11/21/17 16:00 11/21/17 16:00 Intake and Output: 11/21/17 11/22/17 18:59 06:59 Intake Total 620 820 Output Total 500 350 Balance 120 470 - Medications Medications: Current Medications Acetylcysteine (Acetylcysteine 20%) 4 ml INH RQ6 [facility] Last Admin: 11/21/17 20:04 Dose: 4 ml Albuterol/Ipratropium (Duoneb 3 Mg/0.5 Mg (3 Ml) Ud) 3 ml INH RQ6 [facility] Last Admin: 11/21/17 20:04 Dose: 3 ml Aspirin (Aspirin Chewable) 81 mg PEG DAILY [facility] Last Admin: 11/21/17 09:38 Dose: 81 mg Bethanechol Chloride (Urecholine) 50 mg PO TID [facility] Last Admin: 11/21/17 17:39 Dose: 50 mg Carvedilol (Coreg) 3.125 mg PEG BID [facility] Last Admin: 11/21/17 17:39 Dose: 3.125 mg Clopidogrel Bisulfate (Plavix) 75 mg PEG DAILY [facility] Last Admin: 11/21/17 09:40 Dose: 75 mg Enoxaparin Sodium (Lovenox) 40 mg SC DAILY [facility] Last Admin: 11/21/17 09:39 Dose: 40 mg Famotidine (Pepcid) 20 mg PEG DAILY [facility] Last Admin: 11/21/17 09:40 Dose: 20 mg Finasteride (Proscar) 5 mg PEG DAILY [facility] Last Admin: 11/21/17 09:41 Dose: 5 mg Levetiracetam (Keppra) 500 mg PEG BID [facility] Last Admin: 11/21/17 17:39 Dose: 500 mg Rosuvastatin Calcium (Crestor) 2.5 mg PO HS [facility] Last Admin: 11/21/17 22:07 Dose: 2.5 mg Saccharomyces Boulardii (Florastor) 250 mg PEG DAILY [facility] Last Admin: 11/21/17 09:39 Dose: 250 mg Scopolamine (Transderm-Scop) 1 patch TD Q3D [facility] Last Admin: 11/20/17 10:40 Dose: 1 patch Tamsulosin HCl (Flomax) 0.4 mg PEG DAILY [facility] Last Admin: 11/21/17 09:38 Dose: 0.4 mg Vitamin A (Vitamin A & D Oint Ud Foilpak) 0.5 ea TOP Q4 PRN PRN Reason: Dry skin Last Admin: 11/17/17 17:09 Dose: 0.5 ea - Labs Labs: 11/16/17 07:29 11/16/17 07:29 PT 10.6 SECONDS (9.7-12.2) 11/24/15 14:10 INR 1.0 11/24/15 14:10 APTT 25 SECONDS (21-34) 11/24/15 14:10 - Additional Findings Additional findings: - Constitutional Appears: No Acute Distress - Head Exam Head Exam: ATRAUMATIC, NORMOCEPHALIC - Eye Exam Eye Exam: Normal appearance - ENT Exam ENT Exam: Mucous Membranes Moist - Neck Exam Additional comments: Trach in place - Respiratory Exam Respiratory Exam: Rhonchi. absent: Accessory Muscle Use, Respiratory Distress Additional comments: no abnormal growth in tubing - Cardiovascular Exam Cardiovascular Exam: REGULAR RHYTHM, +S1 - GI/Abdominal Exam GI & Abdominal Exam: Soft. absent: Distended, Firm, Guarding, Rigid, Tenderness - Extremities Exam Extremities Exam: absent: Calf Tenderness, Pedal Edema Additional comments: SCDs and pressure ulcer boots in place. - Neurological Exam Neurological Exam: Altered (Patient is non-verbal from anoxic brain injury sustained on 05/2015.) - Skin Skin Exam: Dry Assessment and Plan - Assessment and Plan (Free Text) Assessment: (1) Anoxic encephalopathy Assessment & Plan: * s/p cardiac arrest in 05/2015 * no acute changes in mental status. * Pt has non spontaneous movements. * patient is currently on 40cc/hr on tube feedings * via PEG * Aspirin 81mg daily * Plavix 75 mg daily * Keppra 500mg bid Status: Chronic (2) Acute Respiratory failure Assessment & Plan: * Trach in place, continue daily monitoring for secretions. No change in management at this time. * 11/16 Discussed with nurse, Tonie Fuentes, secretions have been less and less. * Continue with aggressive suctioning multiple times a day per respiratory therapist if secretions are thickened * Scopolamine 1 patch TD Q3D JOO * Duoneb 3ml INH RQ6 * Acetylcysteine 4ml INH RQ6 * Most recent chest xray: * 09/28/17: no active disease. No significant interval change compared to. Status: Chronic (3) History of Recurrent UTIs Assessment & Plan: * ID consult: Dr. Armstrong --> help appreciated * Patient is afebrile, no apparent leukocytosis * Patient is off IV abx since 08/05/17 * patient has condom catheter and Bladder scan PRN to prevent urinary retention Status: Acute (4) History of Urinary retention Assessment & Plan: * Bethanecol 50mg PEG TID * Tamsulosin 0.4mg PEG QD * Bladder scan up to 3x a week to monitor residual urine * patient has had history of recurrent UTIs Status: Chronic (5) Hypokalemia Assessment & Plan: * Monitor and replete Status: Acute (6) History of Sacral ulcer Assessment & Plan: * Healed * Cont with offloading/cushioning/turning * Continue frequent turning, protective ointment and skin checks. Status: Resolved (7) History of coronary artery disease Assessment & Plan: * s/p cardiac stents on 06/13/15 * Cont ASA 81mg via PEG daily * Cont Coreg 3.125mg PEG BID * Cont Plavix 75 mg PEG daily * Rosuvastatin 2.5mg PO HS Status: Acute (8) History of Seizures Assessment & Plan: * Continue Keppra 500mg PEG BID for seizure prophylaxis * Monitor for activity Status: Chronic (9) Lower extremity edema Assessment & Plan: * Improved * SCDs in place * Pressure ulcer boots on b/l * Continue to monitor Status: Chronic (10) Prophylactic measure Assessment & Plan: * Pepcid 20 mg PEG BID * Lovenox 40mg SC daily * SCDs and offloading boots * Saccharomyces 250mg PEG QD * continue to turn and reposition q2hrs * Continue to monitor medication administrations and clinical presentation weekly labs. * vasoline ointment applied to feet prn to prevent hyperkeratos * Please hold feeding from 10pm-6am, placed into nursing communication * Vitamin A & D for lips Disposition: patient has prolonged hospitalization to multiple co-morbidities. per case management 10/08: unable to place patient, pending second opinion by independent examiner. Case discussed with Dr. Chavis <Amandeep Chavis - Last Filed: 11/22/17 11:12> Objective - Vital Signs/Intake and Output Vital Signs (last 24 hours): Temp Pulse Resp BP Pulse Ox 98.2 F 73 20 116/73 100 11/22/17 09:41 11/22/17 09:41 11/22/17 09:41 11/22/17 09:41 11/22/17 09:41 Intake and Output: 11/22/17 11/22/17 06:59 18:59 Intake Total 1400 Output Total 750 Balance 650 - Medications Medications: Current Medications Acetylcysteine (Acetylcysteine 20%) 4 ml INH RQ6 [facility] Last Admin: 11/22/17 08:36 Dose: 4 ml Albuterol/Ipratropium (Duoneb 3 Mg/0.5 Mg (3 Ml) Ud) 3 ml INH RQ6 [facility] Last Admin: 11/22/17 08:36 Dose: 3 ml Aspirin (Aspirin Chewable) 81 mg PEG DAILY [facility] Last Admin: 11/22/17 10:06 Dose: 81 mg Bethanechol Chloride (Urecholine) 50 mg PO TID [facility] Last Admin: 11/22/17 10:08 Dose: 50 mg Carvedilol (Coreg) 3.125 mg PEG BID [facility] Last Admin: 11/22/17 10:07 Dose: 3.125 mg Clopidogrel Bisulfate (Plavix) 75 mg PEG DAILY [facility] Last Admin: 11/22/17 10:07 Dose: 75 mg Enoxaparin Sodium (Lovenox) 40 mg SC DAILY [facility] Last Admin: 11/22/17 10:18 Dose: 40 mg Famotidine (Pepcid) 20 mg PEG DAILY [facility] Last Admin: 11/22/17 10:07 Dose: 20 mg Finasteride (Proscar) 5 mg PEG DAILY [facility] Last Admin: 11/22/17 10:08 Dose: 5 mg Levetiracetam (Keppra) 500 mg PEG BID [facility] Last Admin: 11/22/17 10:07 Dose: 500 mg Rosuvastatin Calcium (Crestor) 2.5 mg PO HS [facility] Last Admin: 11/21/17 22:07 Dose: 2.5 mg Saccharomyces Boulardii (Florastor) 250 mg PEG DAILY [facility] Last Admin: 11/22/17 10:07 Dose: 250 mg Scopolamine (Transderm-Scop) 1 patch TD Q3D [facility] Last Admin: 11/20/17 10:40 Dose: 1 patch Tamsulosin HCl (Flomax) 0.4 mg PEG DAILY [facility] Last Admin: 11/22/17 10:07 Dose: 0.4 mg Vitamin A (Vitamin A & D Oint Ud Foilpak) 0.5 ea TOP Q4 PRN PRN Reason: Dry skin Last Admin: 11/17/17 17:09 Dose: 0.5 ea - Labs Labs: 11/16/17 07:29 11/16/17 07:29 PT 10.6 SECONDS (9.7-12.2) 11/24/15 14:10 INR 1.0 11/24/15 14:10 APTT 25 SECONDS (21-34) 11/24/15 14:10 Assessment and Plan (1) Prophylactic measure Status: Acute (2) Anoxic encephalopathy Status: Chronic (3) STEMI (ST elevation myocardial infarction) Status: Acute (4) Cardiac arrest Status: Acute (5) Seizures Status: Acute (6) Respiratory failure Status: Chronic Attending/Attestation - Attestation I have personally seen and examined this patient.: Yes I have fully participated in the care of the patient.: Yes I have reviewed all pertinent clinical information, including history, physical exam and plan: Yes Notes (Text): 11/22/17 11:11 Medical Attending: Patient was seen and examined by me/ agree with the above note by the resident The situation is not changed from previous. Amandeep Chavis
[2017-11-22] MEDS: Albuterol-Ipratrop 3 mg / 0.5 (3 ml) UD INH SCH ×4 (01:39→20:54)
[2017-11-22] MEDS: Acetylcysteine 20% Inhal Soln (4ml) INH SCH ×4 (01:39→20:54)
[2017-11-22] MEDS: Saccharomyces Boulardi 250 mg Cap PEG SCH (10:07)
[2017-11-22] MEDS: levETIRAcetam 100 mg/ml (5ml) Oral Syringe PEG SCH ×2 (10:07→18:03)
[2017-11-22] MEDS: Enoxaparin 40 mg Syringe SC SCH (10:18)
[2017-11-22] MEDS: Rosuvastatin Calcium 2.5 mg Tab PO SCH (23:28)
[2017-11-23] MEDS: Acetylcysteine 20% Inhal Soln (4ml) INH SCH ×4 (02:16→19:59)
[2017-11-23] MEDS: Albuterol-Ipratrop 3 mg / 0.5 (3 ml) UD INH SCH ×2 (02:16→07:25)
--- NOTE | 2017-11-23 03:17 | CP.PCM.PN ---
<AlexFrancis S - Last Filed: 11/23/17 06:57> Subjective - Date & Time of Evaluation Date of Evaluation: 11/23/17 Time of Evaluation: 06:00 - Subjective Subjective: Medicine progress note for Dr. Chavis Patient seen and examined at bedside. ROS unable to ascertain secondary to anoxic brain injury. Objective - Vital Signs/Intake and Output Vital Signs (last 24 hours): Temp Pulse Resp BP Pulse Ox 97.7 F 77 20 107/69 99 11/23/17 00:00 11/23/17 00:00 11/23/17 00:00 11/23/17 00:00 11/23/17 00:00 Intake and Output: 11/22/17 11/23/17 18:59 06:59 Intake Total 620 620 Output Total 400 500 Balance 220 120 - Medications Medications: Current Medications Acetylcysteine (Acetylcysteine 20%) 4 ml INH RQ6 [facility] Last Admin: 11/23/17 02:16 Dose: 4 ml Albuterol/Ipratropium (Duoneb 3 Mg/0.5 Mg (3 Ml) Ud) 3 ml INH RQ6 [facility] Last Admin: 11/23/17 02:16 Dose: 3 ml Aspirin (Aspirin Chewable) 81 mg PEG DAILY [facility] Last Admin: 11/22/17 10:06 Dose: 81 mg Bethanechol Chloride (Urecholine) 50 mg PO TID [facility] Last Admin: 11/22/17 18:03 Dose: 50 mg Carvedilol (Coreg) 3.125 mg PEG BID [facility] Last Admin: 11/22/17 18:03 Dose: 3.125 mg Clopidogrel Bisulfate (Plavix) 75 mg PEG DAILY [facility] Last Admin: 11/22/17 10:07 Dose: 75 mg Enoxaparin Sodium (Lovenox) 40 mg SC DAILY [facility] Last Admin: 11/22/17 10:18 Dose: 40 mg Famotidine (Pepcid) 20 mg PEG DAILY [facility] Last Admin: 11/22/17 10:07 Dose: 20 mg Finasteride (Proscar) 5 mg PEG DAILY [facility] Last Admin: 11/22/17 10:08 Dose: 5 mg Levetiracetam (Keppra) 500 mg PEG BID [facility] Last Admin: 11/22/17 18:03 Dose: 500 mg Rosuvastatin Calcium (Crestor) 2.5 mg PO HS [facility] Last Admin: 11/22/17 23:28 Dose: 2.5 mg Saccharomyces Boulardii (Florastor) 250 mg PEG DAILY [facility] Last Admin: 11/22/17 10:07 Dose: 250 mg Scopolamine (Transderm-Scop) 1 patch TD Q3D [facility] Last Admin: 11/20/17 10:40 Dose: 1 patch Tamsulosin HCl (Flomax) 0.4 mg PEG DAILY [facility] Last Admin: 11/22/17 10:07 Dose: 0.4 mg Vitamin A (Vitamin A & D Oint Ud Foilpak) 0.5 ea TOP Q4 PRN PRN Reason: Dry skin Last Admin: 11/17/17 17:09 Dose: 0.5 ea - Labs Labs: 11/16/17 07:29 11/16/17 07:29 PT 10.6 SECONDS (9.7-12.2) 11/24/15 14:10 INR 1.0 11/24/15 14:10 APTT 25 SECONDS (21-34) 11/24/15 14:10 - Constitutional Appears: No Acute Distress - Head Exam Head Exam: ATRAUMATIC, NORMOCEPHALIC - Eye Exam Eye Exam: Normal appearance - ENT Exam ENT Exam: Mucous Membranes Moist - Neck Exam Additional comments: Trach in place - Respiratory Exam Respiratory Exam: Rhonchi. absent: Rales, Wheezes Additional comments: no abnormal growth in the tubing - Cardiovascular Exam Cardiovascular Exam: REGULAR RHYTHM, +S1, +S2 - GI/Abdominal Exam GI & Abdominal Exam: Soft. absent: Distended, Firm - Extremities Exam Extremities Exam: absent: Pedal Edema, Tenderness Additional comments: SCDs and pressure ulcer boots in place - Neurological Exam Neurological Exam: Altered (non-verbal due to anoxic brain injury in 05/2015) - Skin Skin Exam: Dry Assessment and Plan - Assessment and Plan (Free Text) Plan: (1) Anoxic encephalopathy Assessment & Plan: * s/p cardiac arrest in 05/2015 * no acute changes in mental status. * Pt has non spontaneous movements. * patient is currently on 40cc/hr on tube feedings * via PEG * Aspirin 81mg daily * Plavix 75 mg daily * Keppra 500mg bid Status: Chronic (2) Acute Respiratory failure Assessment & Plan: * Trach in place, continue daily monitoring for secretions. No change in management at this time. * 11/16 Discussed with nurse, Tonie Fuentes, secretions have been less and less. * Continue with aggressive suctioning multiple times a day per respiratory therapist if secretions are thickened * Scopolamine 1 patch TD Q3D JOO * Duoneb 3ml INH RQ6 * Acetylcysteine 4ml INH RQ6 * Most recent chest xray: * 09/28/17: no active disease. No significant interval change compared to. Status: Chronic (3) History of Recurrent UTIs Assessment & Plan: * ID consult: Dr. Armstrong --> help appreciated * Patient is afebrile, no apparent leukocytosis * Patient is off IV abx since 08/05/17 * patient has condom catheter and Bladder scan PRN to prevent urinary retention Status: Acute (4) History of Urinary retention Assessment & Plan: * Bethanecol 50mg PEG TID * Tamsulosin 0.4mg PEG QD * Bladder scan up to 3x a week to monitor residual urine * patient has had history of recurrent UTIs Status: Chronic (5) Hypokalemia Assessment & Plan: * Monitor and replete Status: Acute (6) History of Sacral ulcer Assessment & Plan: * Healed * Cont with offloading/cushioning/turning * Continue frequent turning, protective ointment and skin checks. Status: Resolved (7) History of coronary artery disease Assessment & Plan: * s/p cardiac stents on 06/13/15 * Cont ASA 81mg via PEG daily * Cont Coreg 3.125mg PEG BID * Cont Plavix 75 mg PEG daily * Rosuvastatin 2.5mg PO HS Status: Acute (8) History of Seizures Assessment & Plan: * Continue Keppra 500mg PEG BID for seizure prophylaxis * Monitor for activity Status: Chronic (9) Lower extremity edema Assessment & Plan: * Improved * SCDs in place * Pressure ulcer boots on b/l * Continue to monitor Status: Chronic (10) Prophylactic measure Assessment & Plan: * Pepcid 20 mg PEG BID * Lovenox 40mg SC daily * SCDs and offloading boots * Saccharomyces 250mg PEG QD * continue to turn and reposition q2hrs * Continue to monitor medication administrations and clinical presentation weekly labs. * vasoline ointment applied to feet prn to prevent hyperkeratos * Please hold feeding from 10pm-6am, placed into nursing communication * Vitamin A & D for lips Disposition: patient has prolonged hospitalization to multiple co-morbidities. per case management 10/08: unable to place patient, pending second opinion by independent examiner. Will DW Dr. Palmira Johnson PGY-1 <Amandeep Chavis H - Last Filed: 11/23/17 13:05> Objective - Vital Signs/Intake and Output Vital Signs (last 24 hours): Temp Pulse Resp BP Pulse Ox 97.6 F 76 20 100/64 98 11/23/17 08:12 11/23/17 08:12 11/23/17 08:12 11/23/17 08:12 11/23/17 08:12 Intake and Output: 11/23/17 11/23/17 06:59 18:59 Intake Total 1000 Output Total 900 Balance 100 - Medications Medications: Current Medications Acetylcysteine (Acetylcysteine 20%) 4 ml INH RQ6 [facility] Last Admin: 11/23/17 07:25 Dose: Not Given Aspirin (Aspirin Chewable) 81 mg PEG DAILY [facility] Last Admin: 11/23/17 09:28 Dose: 81 mg Bethanechol Chloride (Urecholine) 50 mg PO TID [facility] Last Admin: 11/23/17 09:28 Dose: 50 mg Carvedilol (Coreg) 3.125 mg PEG BID [facility] Last Admin: 11/23/17 09:27 Dose: 3.125 mg Clopidogrel Bisulfate (Plavix) 75 mg PEG DAILY [facility] Last Admin: 11/23/17 09:27 Dose: 75 mg Enoxaparin Sodium (Lovenox) 40 mg SC DAILY [facility] Last Admin: 11/23/17 09:27 Dose: 40 mg Famotidine (Pepcid) 20 mg PEG DAILY [facility] Last Admin: 11/23/17 09:27 Dose: 20 mg Finasteride (Proscar) 5 mg PEG DAILY [facility] Last Admin: 11/23/17 09:28 Dose: 5 mg Levetiracetam (Keppra) 500 mg PEG BID [facility] Last Admin: 11/23/17 09:28 Dose: 500 mg Rosuvastatin Calcium (Crestor) 2.5 mg PO HS [facility] Last Admin: 11/22/17 23:28 Dose: 2.5 mg Saccharomyces Boulardii (Florastor) 250 mg PEG DAILY [facility] Last Admin: 11/23/17 09:28 Dose: 250 mg Scopolamine (Transderm-Scop) 1 patch TD Q3D [facility] Last Admin: 11/23/17 09:29 Dose: 1 patch Tamsulosin HCl (Flomax) 0.4 mg PEG DAILY [facility] Last Admin: 11/23/17 09:28 Dose: 0.4 mg Vitamin A (Vitamin A & D Oint Ud Foilpak) 0.5 ea TOP Q4 PRN PRN Reason: Dry skin Last Admin: 11/17/17 17:09 Dose: 0.5 ea - Labs Labs: 11/23/17 11:40 11/23/17 11:40 PT 10.6 SECONDS (9.7-12.2) 11/24/15 14:10 INR 1.0 11/24/15 14:10 APTT 25 SECONDS (21-34) 11/24/15 14:10 Assessment and Plan (1) Prophylactic measure Status: Acute (2) Anoxic encephalopathy Status: Chronic (3) STEMI (ST elevation myocardial infarction) Status: Acute (4) Cardiac arrest Status: Acute (5) Seizures Status: Acute (6) Respiratory failure Status: Chronic Attending/Attestation - Attestation I have personally seen and examined this patient.: Yes I have fully participated in the care of the patient.: Yes I have reviewed all pertinent clinical information, including history, physical exam and plan: Yes Notes (Text): 11/23/17 13:05 Medical attending: Patient was seen and examined by me, agree with the above note by medical concierge. Unfortunately the patient situation is unchanged from before - I currently do not have any new stroke report thank you Amandeep Chavis
[2017-11-23 08:30] LABS: BASO % 0.4 % (0.0-2.0); EOS # 0.3 K/uL (0.0-0.7); EOS % 3.3 % (0.0-4.0); HEMOGLOBIN 12.5 g/dL (12.0-18.0); LYMPH # 2.1 K/uL (1.0-4.3); LYMPH % 23.7 % (20.0-40.0); MEAN CELL VOLUME 88.3 fL (80.0-94.0); MEAN CORPUSCULAR HEMOGLOBIN 29.6 pg (27.0-31.0); MEAN CORPUSCULAR HGB CONC 33.5 g/dL (33.0-37.0); MEAN PLATELET VOLUME 9.4 fL (7.2-11.7); MONO # 0.8 K/uL (0.0-0.8); MONO % 9.1 % (0.0-10.0); NEUT # 5.7 K/uL (1.8-7.0); NEUT % 63.5 % (50.0-75.0); RBC 4.23 Mil/uL (4.40-5.90); RED CELL DISTRIBUTION WIDTH 14.9 % (11.5-14.5)
[2017-11-23 08:41] LABS: ALB/GLOB RATIO 0.8 (1.0-2.1); ALBUMIN 3.7 g/dL (3.5-5.0); ALT/SGPT 61 U/L (21-72); AST/SGOT 32 U/L (17-59); BLOOD UREA NITROGEN 12 mg/dL (9-20); CALCIUM 8.4 mg/dl (8.6-10.4); GFR NON-AFRICAN AMERICAN > 60
[2017-11-23] MEDS: Enoxaparin 40 mg Syringe SC SCH (09:27)
[2017-11-23] MEDS: Saccharomyces Boulardi 250 mg Cap PEG SCH (09:28)
[2017-11-23] MEDS: levETIRAcetam 100 mg/ml (5ml) Oral Syringe PEG SCH ×2 (09:28→18:05)
[2017-11-23 11:52] LABS: BASO % 0.3 % (0.0-2.0); EOS # 0.3 K/uL (0.0-0.7); LYMPH # 2.7 K/uL (1.0-4.3); LYMPH % 27.1 % (20.0-40.0); MEAN CELL VOLUME 88.6 fL (80.0-94.0); MEAN CORPUSCULAR HEMOGLOBIN 29.8 pg (27.0-31.0); MEAN CORPUSCULAR HGB CONC 33.6 g/dL (33.0-37.0); MEAN PLATELET VOLUME 9.1 fL (7.2-11.7); MONO # 0.7 K/uL (0.0-0.8); MONO % 6.9 % (0.0-10.0); NEUT # 6.2 K/uL (1.8-7.0); NEUT % 62.7 % (50.0-75.0); RBC 4.03 Mil/uL (4.40-5.90); RED CELL DISTRIBUTION WIDTH 14.8 % (11.5-14.5); WHITE BLOOD COUNT 9.9 K/uL (4.8-10.8)
[2017-11-23 12:09] LABS: ALB/GLOB RATIO 0.8 (1.0-2.1); ALBUMIN 3.8 g/dL (3.5-5.0); ALT/SGPT 65 U/L (21-72); AST/SGOT 36 U/L (17-59); BLOOD UREA NITROGEN 12 mg/dL (9-20); CALCIUM 8.4 mg/dl (8.6-10.4); GFR NON-AFRICAN AMERICAN > 60
[2017-11-23] MEDS: Rosuvastatin Calcium 2.5 mg Tab PO SCH (22:05)
[2017-11-24] MEDS: Acetylcysteine 20% Inhal Soln (4ml) INH SCH ×4 (01:33→20:20)
--- NOTE | 2017-11-24 07:11 | CP.PCM.PN ---
<Ben Martell R - Last Filed: 11/24/17 07:08> Subjective - Date & Time of Evaluation Date of Evaluation: 11/24/17 Time of Evaluation: 07:08 - Subjective Subjective: PGY1 Medicine Note for Dr. Moore. Patient seen and examined this morning. No acute events overnight. 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 ROS unattainable. Objective - Vital Signs/Intake and Output Vital Signs (last 24 hours): Temp Pulse Resp BP Pulse Ox 98 F 65 20 129/84 98 11/23/17 23:27 11/23/17 23:27 11/23/17 23:27 11/23/17 23:27 11/23/17 23:27 Intake and Output: 11/24/17 11/24/17 06:59 18:59 Intake Total 1150 Output Total 900 Balance 250 - Medications Medications: Current Medications Acetylcysteine (Acetylcysteine 20%) 4 ml INH RQ6 [facility] Last Admin: 11/24/17 01:33 Dose: Not Given Albuterol/Ipratropium (Duoneb 3 Mg/0.5 Mg (3 Ml) Ud) 3 ml INH RQ6 [facility] Aspirin (Aspirin Chewable) 81 mg PEG DAILY [facility] Last Admin: 11/23/17 09:28 Dose: 81 mg Bethanechol Chloride (Urecholine) 50 mg PO TID [facility] Last Admin: 11/23/17 18:08 Dose: 50 mg Carvedilol (Coreg) 3.125 mg PEG BID [facility] Last Admin: 11/23/17 18:04 Dose: 3.125 mg Clopidogrel Bisulfate (Plavix) 75 mg PEG DAILY [facility] Last Admin: 11/23/17 09:27 Dose: 75 mg Enoxaparin Sodium (Lovenox) 40 mg SC DAILY [facility] Last Admin: 11/23/17 09:27 Dose: 40 mg Famotidine (Pepcid) 20 mg PEG DAILY [facility] Last Admin: 11/23/17 09:27 Dose: 20 mg Finasteride (Proscar) 5 mg PEG DAILY [facility] Last Admin: 11/23/17 09:28 Dose: 5 mg Levetiracetam (Keppra) 500 mg PEG BID [facility] Last Admin: 11/23/17 18:05 Dose: 500 mg Rosuvastatin Calcium (Crestor) 2.5 mg PO HS [facility] Last Admin: 11/23/17 22:05 Dose: 2.5 mg Saccharomyces Boulardii (Florastor) 250 mg PEG DAILY [facility] Last Admin: 11/23/17 09:28 Dose: 250 mg Scopolamine (Transderm-Scop) 1 patch TD Q3D [facility] Last Admin: 11/23/17 09:29 Dose: 1 patch Tamsulosin HCl (Flomax) 0.4 mg PEG DAILY [facility] Last Admin: 11/23/17 09:28 Dose: 0.4 mg Vitamin A (Vitamin A & D Oint Ud Foilpak) 0.5 ea TOP Q4 PRN PRN Reason: Dry skin Last Admin: 11/17/17 17:09 Dose: 0.5 ea - Labs Labs: 11/23/17 11:40 11/23/17 11:40 PT 10.6 SECONDS (9.7-12.2) 11/24/15 14:10 INR 1.0 11/24/15 14:10 APTT 25 SECONDS (21-34) 11/24/15 14:10 - Additional Findings Additional findings: - Constitutional Appears: No Acute Distress - Head Exam Head Exam: ATRAUMATIC, NORMOCEPHALIC - Eye Exam Eye Exam: Normal appearance - ENT Exam ENT Exam: Mucous Membranes Moist - Neck Exam Additional comments: Trach in place - Respiratory Exam Respiratory Exam: Rhonchi. absent: Accessory Muscle Use, Respiratory Distress Additional comments: trach tube, no abnormal growth in tubing - Cardiovascular Exam Cardiovascular Exam: REGULAR RHYTHM, +S1 - GI/Abdominal Exam GI & Abdominal Exam: Soft. absent: Distended, Firm, Guarding, Rigid, Tenderness - Extremities Exam Extremities Exam: absent: Calf Tenderness, Pedal Edema Additional comments: SCDs and pressure ulcer boots in place. - Neurological Exam Neurological Exam: Altered (Patient is non-verbal from anoxic brain injury sustained on 05/2015.) - Skin Skin Exam: Dry Assessment and Plan - Assessment and Plan (Free Text) Assessment: (1) Anoxic encephalopathy Assessment & Plan: * s/p cardiac arrest in 05/2015 * no acute changes in mental status. * Pt has non spontaneous movements. * patient is currently on 40cc/hr on tube feedings * via PEG * Aspirin 81mg daily * Plavix 75 mg daily * Keppra 500mg bid Status: Chronic (2) Acute Respiratory failure Assessment & Plan: * Trach in place, continue daily monitoring for secretions. No change in management at this time. * 11/16 Discussed with nurse, Tonie Fuentes, secretions have been less and less. * Continue with aggressive suctioning multiple times a day per respiratory therapist if secretions are thickened * Scopolamine 1 patch TD Q3D [facility]OO * Duoneb 3ml INH RQ6 * Acetylcysteine 4ml INH RQ6 * Most recent chest xray: * 09/28/17: no active disease. No significant interval change compared to. Status: Chronic (3) History of Recurrent UTIs Assessment & Plan: * ID consult: Dr. Armstrong --> help appreciated * Patient is afebrile, no apparent leukocytosis * Patient is off IV abx since 08/05/17 * patient has condom catheter and Bladder scan PRN to prevent urinary retention Status: Acute (4) History of Urinary retention Assessment & Plan: * Bethanecol 50mg PEG TID * Tamsulosin 0.4mg PEG QD * Bladder scan up to 3x a week to monitor residual urine * patient has had history of recurrent UTIs Status: Chronic (5) Hypokalemia Assessment & Plan: * Monitor and replete Status: Acute (6) History of Sacral ulcer Assessment & Plan: * Healed * Cont with offloading/cushioning/turning * Continue frequent turning, protective ointment and skin checks. Status: Resolved (7) History of coronary artery disease Assessment & Plan: * s/p cardiac stents on 06/13/15 * Cont ASA 81mg via PEG daily * Cont Coreg 3.125mg PEG BID * Cont Plavix 75 mg PEG daily * Rosuvastatin 2.5mg PO HS Status: Acute (8) History of Seizures Assessment & Plan: * Continue Keppra 500mg PEG BID for seizure prophylaxis * Monitor for activity Status: Chronic (9) Lower extremity edema Assessment & Plan: * Improved * SCDs in place * Pressure ulcer boots on b/l * Continue to monitor Status: Chronic (10) Prophylactic measure Assessment & Plan: * Pepcid 20 mg PEG BID * Lovenox 40mg SC daily * SCDs and offloading boots * Saccharomyces 250mg PEG QD * continue to turn and reposition q2hrs * Continue to monitor medication administrations and clinical presentation weekly labs. * vasoline ointment applied to feet prn to prevent hyperkeratos * Please hold feeding from 10pm-6am, placed into nursing communication * Vitamin A & D for lips Disposition: patient has prolonged hospitalization to multiple co-morbidities. per case management 10/08: unable to place patient, pending second opinion by independent examiner. <Jeison Moore - Last Filed: 11/26/17 14:17> Objective - Vital Signs/Intake and Output Vital Signs (last 24 hours): Temp Pulse Resp BP Pulse Ox 98.1 F 62 20 114/64 99 11/26/17 08:17 11/26/17 08:17 11/26/17 08:17 11/26/17 08:17 11/26/17 08:17 Intake and Output: 11/26/17 11/26/17 06:59 18:59 Intake Total 960 Output Total 1250 Balance -290 - Medications Medications: Current Medications Acetylcysteine (Acetylcysteine 20%) 4 ml INH RQ6 [facility] Last Admin: 11/26/17 08:44 Dose: 4 ml Albuterol/Ipratropium (Duoneb 3 Mg/0.5 Mg (3 Ml) Ud) 3 ml INH RQ6 [facility] Last Admin: 11/26/17 08:44 Dose: 3 ml Aspirin (Aspirin Chewable) 81 mg PEG DAILY [facility] Last Admin: 11/26/17 10:19 Dose: 81 mg Bethanechol Chloride (Urecholine) 50 mg PO TID [facility] Last Admin: 11/26/17 14:13 Dose: 50 mg Carvedilol (Coreg) 3.125 mg PEG BID [facility] Last Admin: 11/26/17 10:19 Dose: 3.125 mg Clopidogrel Bisulfate (Plavix) 75 mg PEG DAILY [facility] Last Admin: 11/26/17 10:19 Dose: 75 mg Enoxaparin Sodium (Lovenox) 40 mg SC DAILY [facility] Last Admin: 11/26/17 10:19 Dose: 40 mg Famotidine (Pepcid) 20 mg PEG DAILY [facility] Last Admin: 11/26/17 10:19 Dose: 20 mg Finasteride (Proscar) 5 mg PEG DAILY [facility] Last Admin: 11/26/17 10:19 Dose: 5 mg Levetiracetam (Keppra) 500 mg PEG BID [facility] Last Admin: 11/26/17 10:19 Dose: 500 mg Rosuvastatin Calcium (Crestor) 2.5 mg PO HS [facility] Last Admin: 11/25/17 21:56 Dose: 2.5 mg Saccharomyces Boulardii (Florastor) 250 mg PEG DAILY [facility] Last Admin: 11/26/17 10:19 Dose: 250 mg Scopolamine (Transderm-Scop) 1 patch TD Q3D [facility] Last Admin: 11/26/17 10:19 Dose: 1 patch Tamsulosin HCl (Flomax) 0.4 mg PEG DAILY [facility] Last Admin: 11/26/17 10:19 Dose: 0.4 mg Vitamin A (Vitamin A & D Oint Ud Foilpak) 0.5 ea TOP Q4 PRN PRN Reason: Dry skin Last Admin: 11/17/17 17:09 Dose: 0.5 ea - Labs Labs: 11/23/17 11:40 11/23/17 11:40 PT 10.6 SECONDS (9.7-12.2) 11/24/15 14:10 INR 1.0 11/24/15 14:10 APTT 25 SECONDS (21-34) 11/24/15 14:10 Attending/Attestation - Attestation I have personally seen and examined this patient.: Yes I have fully participated in the care of the patient.: Yes I have reviewed all pertinent clinical information, including history, physical exam and plan: Yes
[2017-11-24] MEDS: Albuterol-Ipratrop 3 mg / 0.5 (3 ml) UD INH SCH ×3 (07:32→20:20)
[2017-11-24] MEDS: levETIRAcetam 100 mg/ml (5ml) Oral Syringe PEG SCH ×2 (10:28→18:18)
[2017-11-24] MEDS: Saccharomyces Boulardi 250 mg Cap PEG SCH (10:28)
[2017-11-24] MEDS: Enoxaparin 40 mg Syringe SC SCH (10:28)
[2017-11-24] MEDS: Rosuvastatin Calcium 2.5 mg Tab PO SCH (22:35)
[2017-11-25] MEDS: Albuterol-Ipratrop 3 mg / 0.5 (3 ml) UD INH SCH ×4 (01:37→20:30)
[2017-11-25] MEDS: Acetylcysteine 20% Inhal Soln (4ml) INH SCH ×4 (01:37→20:30)
[2017-11-25] MEDS: Saccharomyces Boulardi 250 mg Cap PEG SCH (10:07)
[2017-11-25] MEDS: Enoxaparin 40 mg Syringe SC SCH (10:07)
[2017-11-25] MEDS: levETIRAcetam 100 mg/ml (5ml) Oral Syringe PEG SCH ×2 (10:07→17:45)
--- NOTE | 2017-11-25 12:25 | CP.PCM.PN ---
<Ben Martell R - Last Filed: 11/25/17 12:24> Subjective - Date & Time of Evaluation Date of Evaluation: 11/25/17 Time of Evaluation: 12:24 - Subjective Subjective: PGY1 Medicine Note for Dr. Moore. Patient seen and examined this morning. No acute events overnight. 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 ROS unattainable. Objective - Vital Signs/Intake and Output Vital Signs (last 24 hours): Temp Pulse Resp BP Pulse Ox 98.1 F 61 20 127/74 98 11/25/17 08:00 11/25/17 08:00 11/25/17 08:00 11/25/17 08:00 11/25/17 08:00 Intake and Output: 11/25/17 11/25/17 06:59 18:59 Intake Total 1260 Output Total 1100 Balance 160 - Medications Medications: Current Medications Acetylcysteine (Acetylcysteine 20%) 4 ml INH RQ6 [facility] Last Admin: 11/25/17 07:37 Dose: Not Given Albuterol/Ipratropium (Duoneb 3 Mg/0.5 Mg (3 Ml) Ud) 3 ml INH RQ6 [facility] Last Admin: 11/25/17 07:37 Dose: Not Given Aspirin (Aspirin Chewable) 81 mg PEG DAILY [facility] Last Admin: 11/25/17 10:07 Dose: 81 mg Bethanechol Chloride (Urecholine) 50 mg PO TID [facility] Last Admin: 11/25/17 10:07 Dose: 50 mg Carvedilol (Coreg) 3.125 mg PEG BID [facility] Last Admin: 11/25/17 10:07 Dose: 3.125 mg Clopidogrel Bisulfate (Plavix) 75 mg PEG DAILY [facility] Last Admin: 11/25/17 10:07 Dose: 75 mg Enoxaparin Sodium (Lovenox) 40 mg SC DAILY [facility] Last Admin: 11/25/17 10:07 Dose: 40 mg Famotidine (Pepcid) 20 mg PEG DAILY [facility] Last Admin: 11/25/17 10:07 Dose: 20 mg Finasteride (Proscar) 5 mg PEG DAILY [facility] Last Admin: 11/25/17 10:07 Dose: 5 mg Levetiracetam (Keppra) 500 mg PEG BID [facility] Last Admin: 01/03/18 10:07 Dose: 500 mg Rosuvastatin Calcium (Crestor) 2.5 mg PO HS [facility] Last Admin: 11/24/17 22:35 Dose: 2.5 mg Saccharomyces Boulardii (Florastor) 250 mg PEG DAILY [facility] Last Admin: 11/25/17 10:07 Dose: 250 mg Scopolamine (Transderm-Scop) 1 patch TD Q3D [facility] Last Admin: 11/23/17 09:29 Dose: 1 patch Tamsulosin HCl (Flomax) 0.4 mg PEG DAILY [facility] Last Admin: 11/25/17 10:07 Dose: 0.4 mg Vitamin A (Vitamin A & D Oint Ud Foilpak) 0.5 ea TOP Q4 PRN PRN Reason: Dry skin Last Admin: 11/17/17 17:09 Dose: 0.5 ea - Labs Labs: 11/23/17 11:40 11/23/17 11:40 PT 10.6 SECONDS (9.7-12.2) 11/24/15 14:10 INR 1.0 11/24/15 14:10 APTT 25 SECONDS (21-34) 11/24/15 14:10 - Additional Findings Additional findings: - Constitutional Appears: No Acute Distress - Head Exam Head Exam: ATRAUMATIC, NORMOCEPHALIC - Eye Exam Eye Exam: Normal appearance - ENT Exam ENT Exam: Mucous Membranes Moist - Neck Exam Additional comments: Trach in place - Respiratory Exam Respiratory Exam: Rhonchi. absent: Accessory Muscle Use, Respiratory Distress Additional comments: trach tube, no abnormal growth in tubing - Cardiovascular Exam Cardiovascular Exam: REGULAR RHYTHM, +S1 - GI/Abdominal Exam GI & Abdominal Exam: Soft. absent: Distended, Firm, Guarding, Rigid, Tenderness - Extremities Exam Extremities Exam: absent: Calf Tenderness, Pedal Edema Additional comments: SCDs and pressure ulcer boots in place. - Neurological Exam Neurological Exam: Altered (Patient is non-verbal from anoxic brain injury sustained on 05/2015.) - Skin Skin Exam: Dry Assessment and Plan - Assessment and Plan (Free Text) Assessment: (1) Anoxic encephalopathy Assessment & Plan: * s/p cardiac arrest in 05/2015 * no acute changes in mental status. * Pt has non spontaneous movements. * patient is currently on 40cc/hr on tube feedings * via PEG * Aspirin 81mg daily * Plavix 75 mg daily * Keppra 500mg bid Status: Chronic (2) Acute Respiratory failure Assessment & Plan: * Trach in place, continue daily monitoring for secretions. No change in management at this time. * 11/16 Discussed with nurse, Tonie Fuentes, secretions have been less and less. * Continue with aggressive suctioning multiple times a day per respiratory therapist if secretions are thickened * Scopolamine 1 patch TD Q3D JOO * Duoneb 3ml INH RQ6 * Acetylcysteine 4ml INH RQ6 * Most recent chest xray: * 09/28/17: no active disease. No significant interval change compared to. Status: Chronic (3) History of Recurrent UTIs Assessment & Plan: * ID consult: Dr. Armstrong --> help appreciated * Patient is afebrile, no apparent leukocytosis * Patient is off IV abx since 08/05/17 * patient has condom catheter and Bladder scan PRN to prevent urinary retention Status: Acute (4) History of Urinary retention Assessment & Plan: * Bethanecol 50mg PEG TID * Tamsulosin 0.4mg PEG QD * Bladder scan up to 3x a week to monitor residual urine * patient has had history of recurrent UTIs Status: Chronic (5) Hypokalemia Assessment & Plan: * Monitor and replete Status: Acute (6) History of Sacral ulcer Assessment & Plan: * Healed * Cont with offloading/cushioning/turning * Continue frequent turning, protective ointment and skin checks. Status: Resolved (7) History of coronary artery disease Assessment & Plan: * s/p cardiac stents on 06/13/15 * Cont ASA 81mg via PEG daily * Cont Coreg 3.125mg PEG BID * Cont Plavix 75 mg PEG daily * Rosuvastatin 2.5mg PO HS Status: Acute (8) History of Seizures Assessment & Plan: * Continue Keppra 500mg PEG BID for seizure prophylaxis * Monitor for activity Status: Chronic (9) Lower extremity edema Assessment & Plan: * Improved * SCDs in place * Pressure ulcer boots on b/l * Continue to monitor Status: Chronic (10) Prophylactic measure Assessment & Plan: * Pepcid 20 mg PEG BID * Lovenox 40mg SC daily * SCDs and offloading boots * Saccharomyces 250mg PEG QD * continue to turn and reposition q2hrs * Continue to monitor medication administrations and clinical presentation weekly labs. * vasoline ointment applied to feet prn to prevent hyperkeratos * Please hold feeding from 10pm-6am, placed into nursing communication * Vitamin A & D for lips Disposition: patient has prolonged hospitalization to multiple co-morbidities. per case management 10/08: unable to place patient, pending second opinion by independent examiner. <Jeison Moore - Last Filed: 11/26/17 14:17> Objective - Vital Signs/Intake and Output Vital Signs (last 24 hours): Temp Pulse Resp BP Pulse Ox 98.1 F 62 20 114/64 99 11/26/17 08:17 11/26/17 08:17 11/26/17 08:17 11/26/17 08:17 11/26/17 08:17 Intake and Output: 11/26/17 11/26/17 06:59 18:59 Intake Total 960 Output Total 1250 Balance -290 - Medications Medications: Current Medications Acetylcysteine (Acetylcysteine 20%) 4 ml INH RQ6 [facility] Last Admin: 11/26/17 08:44 Dose: 4 ml Albuterol/Ipratropium (Duoneb 3 Mg/0.5 Mg (3 Ml) Ud) 3 ml INH RQ6 [facility] Last Admin: 11/26/17 08:44 Dose: 3 ml Aspirin (Aspirin Chewable) 81 mg PEG DAILY [facility] Last Admin: 11/26/17 10:19 Dose: 81 mg Bethanechol Chloride (Urecholine) 50 mg PO TID [facility] Last Admin: 11/26/17 14:13 Dose: 50 mg Carvedilol (Coreg) 3.125 mg PEG BID [facility] Last Admin: 11/26/17 10:19 Dose: 3.125 mg Clopidogrel Bisulfate (Plavix) 75 mg PEG DAILY [facility] Last Admin: 11/26/17 10:19 Dose: 75 mg Enoxaparin Sodium (Lovenox) 40 mg SC DAILY [facility] Last Admin: 11/26/17 10:19 Dose: 40 mg Famotidine (Pepcid) 20 mg PEG DAILY [facility] Last Admin: 11/26/17 10:19 Dose: 20 mg Finasteride (Proscar) 5 mg PEG DAILY [facility] Last Admin: 11/26/17 10:19 Dose: 5 mg Levetiracetam (Keppra) 500 mg PEG BID [facility] Last Admin: 11/26/17 10:19 Dose: 500 mg Rosuvastatin Calcium (Crestor) 2.5 mg PO HS [facility] Last Admin: 11/25/17 21:56 Dose: 2.5 mg Saccharomyces Boulardii (Florastor) 250 mg PEG DAILY [facility] Last Admin: 11/26/17 10:19 Dose: 250 mg Scopolamine (Transderm-Scop) 1 patch TD Q3D [facility] Last Admin: 11/26/17 10:19 Dose: 1 patch Tamsulosin HCl (Flomax) 0.4 mg PEG DAILY [facility] Last Admin: 11/26/17 10:19 Dose: 0.4 mg Vitamin A (Vitamin A & D Oint Ud Foilpak) 0.5 ea TOP Q4 PRN PRN Reason: Dry skin Last Admin: 11/17/17 17:09 Dose: 0.5 ea - Labs Labs: 11/23/17 11:40 11/23/17 11:40 PT 10.6 SECONDS (9.7-12.2) 11/24/15 14:10 INR 1.0 11/24/15 14:10 APTT 25 SECONDS (21-34) 11/24/15 14:10 Attending/Attestation - Attestation I have personally seen and examined this patient.: Yes I have fully participated in the care of the patient.: Yes I have reviewed all pertinent clinical information, including history, physical exam and plan: Yes
[2017-11-25] MEDS: Rosuvastatin Calcium 2.5 mg Tab PO SCH (21:56)
[2017-11-26] MEDS: Albuterol-Ipratrop 3 mg / 0.5 (3 ml) UD INH SCH ×4 (01:20→20:29)
[2017-11-26] MEDS: Acetylcysteine 20% Inhal Soln (4ml) INH SCH ×4 (01:20→20:29)
--- NOTE | 2017-11-26 07:34 | CP.PCM.PN ---
<Ben Martell R - Last Filed: 11/26/17 07:33> Subjective - Date & Time of Evaluation Date of Evaluation: 11/26/17 Time of Evaluation: 07:33 - Subjective Subjective: PGY1 Medicine Note for Dr. Moore. Patient seen and examined this morning. No acute events overnight. 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 ROS unattainable. Objective - Vital Signs/Intake and Output Vital Signs (last 24 hours): Temp Pulse Resp BP Pulse Ox 98.9 F 71 20 110/70 97 11/25/17 23:37 11/25/17 23:37 11/25/17 23:37 11/25/17 23:37 11/25/17 23:37 Intake and Output: 11/26/17 11/26/17 06:59 18:59 Intake Total 960 Output Total 1250 Balance -290 - Medications Medications: Current Medications Acetylcysteine (Acetylcysteine 20%) 4 ml INH RQ6 [facility] Last Admin: 11/26/17 01:20 Dose: Not Given Albuterol/Ipratropium (Duoneb 3 Mg/0.5 Mg (3 Ml) Ud) 3 ml INH RQ6 [facility] Last Admin: 11/26/17 01:20 Dose: 3 ml Aspirin (Aspirin Chewable) 81 mg PEG DAILY [facility] Last Admin: 11/25/17 10:07 Dose: 81 mg Bethanechol Chloride (Urecholine) 50 mg PO TID [facility] Last Admin: 11/25/17 17:45 Dose: 50 mg Carvedilol (Coreg) 3.125 mg PEG BID [facility] Last Admin: 11/25/17 17:45 Dose: 3.125 mg Clopidogrel Bisulfate (Plavix) 75 mg PEG DAILY [facility] Last Admin: 11/25/17 10:07 Dose: 75 mg Enoxaparin Sodium (Lovenox) 40 mg SC DAILY [facility] Last Admin: 11/25/17 10:07 Dose: 40 mg Famotidine (Pepcid) 20 mg PEG DAILY [facility] Last Admin: 11/25/17 10:07 Dose: 20 mg Finasteride (Proscar) 5 mg PEG DAILY [facility] Last Admin: 11/25/17 10:07 Dose: 5 mg Levetiracetam (Keppra) 500 mg PEG BID [facility] Last Admin: 11/25/17 17:45 Dose: 500 mg Rosuvastatin Calcium (Crestor) 2.5 mg PO HS [facility] Last Admin: 11/25/17 21:56 Dose: 2.5 mg Saccharomyces Boulardii (Florastor) 250 mg PEG DAILY [facility] Last Admin: 11/25/17 10:07 Dose: 250 mg Scopolamine (Transderm-Scop) 1 patch TD Q3D [facility] Last Admin: 11/23/17 09:29 Dose: 1 patch Tamsulosin HCl (Flomax) 0.4 mg PEG DAILY [facility] Last Admin: 11/25/17 10:07 Dose: 0.4 mg Vitamin A (Vitamin A & D Oint Ud Foilpak) 0.5 ea TOP Q4 PRN PRN Reason: Dry skin Last Admin: 11/17/17 17:09 Dose: 0.5 ea - Labs Labs: 11/23/17 11:40 11/23/17 11:40 PT 10.6 SECONDS (9.7-12.2) 11/24/15 14:10 INR 1.0 11/24/15 14:10 APTT 25 SECONDS (21-34) 11/24/15 14:10 - Additional Findings Additional findings: - Constitutional Appears: No Acute Distress - Head Exam Head Exam: ATRAUMATIC, NORMOCEPHALIC - Eye Exam Eye Exam: Normal appearance - ENT Exam ENT Exam: Mucous Membranes Moist - Neck Exam Additional comments: Trach in place - Respiratory Exam Respiratory Exam: Rhonchi. absent: Accessory Muscle Use, Respiratory Distress Additional comments: trach tube, no abnormal growth in tubing - Cardiovascular Exam Cardiovascular Exam: REGULAR RHYTHM, +S1 - GI/Abdominal Exam GI & Abdominal Exam: Soft. absent: Distended, Firm, Guarding, Rigid, Tenderness - Extremities Exam Extremities Exam: absent: Calf Tenderness, Pedal Edema Additional comments: SCDs and pressure ulcer boots in place. - Neurological Exam Neurological Exam: Altered (Patient is non-verbal from anoxic brain injury sustained on 05/2015.) - Skin Skin Exam: Dry Assessment and Plan - Assessment and Plan (Free Text) Assessment: (1) Anoxic encephalopathy Assessment & Plan: * s/p cardiac arrest in 05/2015 * no acute changes in mental status. * Pt has non spontaneous movements. * patient is currently on 40cc/hr on tube feedings * via PEG * Aspirin 81mg daily * Plavix 75 mg daily * Keppra 500mg bid Status: Chronic (2) Acute Respiratory failure Assessment & Plan: * Trach in place, continue daily monitoring for secretions. No change in management at this time. * 11/16 Discussed with nurse, Tonie Fuentes, secretions have been less and less. * Continue with aggressive suctioning multiple times a day per respiratory therapist if secretions are thickened * Scopolamine 1 patch TD Q3D JOO * Duoneb 3ml INH RQ6 * Acetylcysteine 4ml INH RQ6 * Most recent chest xray: * 09/28/17: no active disease. No significant interval change compared to. Status: Chronic (3) History of Recurrent UTIs Assessment & Plan: * ID consult: Dr. Armstrong --> help appreciated * Patient is afebrile, no apparent leukocytosis * Patient is off IV abx since 08/05/17 * patient has condom catheter and Bladder scan PRN to prevent urinary retention Status: Acute (4) History of Urinary retention Assessment & Plan: * Bethanecol 50mg PEG TID * Tamsulosin 0.4mg PEG QD * Bladder scan up to 3x a week to monitor residual urine * patient has had history of recurrent UTIs Status: Chronic (5) Hypokalemia Assessment & Plan: * Monitor and replete Status: Acute (6) History of Sacral ulcer Assessment & Plan: * Healed * Cont with offloading/cushioning/turning * Continue frequent turning, protective ointment and skin checks. Status: Resolved (7) History of coronary artery disease Assessment & Plan: * s/p cardiac stents on 06/13/15 * Cont ASA 81mg via PEG daily * Cont Coreg 3.125mg PEG BID * Cont Plavix 75 mg PEG daily * Rosuvastatin 2.5mg PO HS Status: Acute (8) History of Seizures Assessment & Plan: * Continue Keppra 500mg PEG BID for seizure prophylaxis * Monitor for activity Status: Chronic (9) Lower extremity edema Assessment & Plan: * Improved * SCDs in place * Pressure ulcer boots on b/l * Continue to monitor Status: Chronic (10) Prophylactic measure Assessment & Plan: * Pepcid 20 mg PEG BID * Lovenox 40mg SC daily * SCDs and offloading boots * Saccharomyces 250mg PEG QD * continue to turn and reposition q2hrs * Continue to monitor medication administrations and clinical presentation weekly labs. * vasoline ointment applied to feet prn to prevent hyperkeratos * Please hold feeding from 10pm-6am, placed into nursing communication * Vitamin A & D for lips Disposition: patient has prolonged hospitalization to multiple co-morbidities. per case management 10/08: unable to place patient, pending second opinion by independent examiner. <Jeison Moore - Last Filed: 11/26/17 14:19> Objective - Vital Signs/Intake and Output Vital Signs (last 24 hours): Temp Pulse Resp BP Pulse Ox 98.1 F 62 20 114/64 99 11/26/17 08:17 11/26/17 08:17 11/26/17 08:17 11/26/17 08:17 11/26/17 08:17 Intake and Output: 11/26/17 11/26/17 06:59 18:59 Intake Total 960 Output Total 1250 Balance -290 - Medications Medications: Current Medications Acetylcysteine (Acetylcysteine 20%) 4 ml INH RQ6 [facility] Last Admin: 11/26/17 08:44 Dose: 4 ml Albuterol/Ipratropium (Duoneb 3 Mg/0.5 Mg (3 Ml) Ud) 3 ml INH RQ6 [facility] Last Admin: 11/26/17 08:44 Dose: 3 ml Aspirin (Aspirin Chewable) 81 mg PEG DAILY [facility] Last Admin: 11/26/17 10:19 Dose: 81 mg Bethanechol Chloride (Urecholine) 50 mg PO TID [facility] Last Admin: 11/26/17 14:13 Dose: 50 mg Carvedilol (Coreg) 3.125 mg PEG BID [facility] Last Admin: 11/26/17 10:19 Dose: 3.125 mg Clopidogrel Bisulfate (Plavix) 75 mg PEG DAILY [facility] Last Admin: 11/26/17 10:19 Dose: 75 mg Enoxaparin Sodium (Lovenox) 40 mg SC DAILY [facility] Last Admin: 11/26/17 10:19 Dose: 40 mg Famotidine (Pepcid) 20 mg PEG DAILY [facility] Last Admin: 11/26/17 10:19 Dose: 20 mg Finasteride (Proscar) 5 mg PEG DAILY [facility] Last Admin: 11/26/17 10:19 Dose: 5 mg Levetiracetam (Keppra) 500 mg PEG BID [facility] Last Admin: 11/26/17 10:19 Dose: 500 mg Rosuvastatin Calcium (Crestor) 2.5 mg PO HS [facility] Last Admin: 11/25/17 21:56 Dose: 2.5 mg Saccharomyces Boulardii (Florastor) 250 mg PEG DAILY [facility] Last Admin: 11/26/17 10:19 Dose: 250 mg Scopolamine (Transderm-Scop) 1 patch TD Q3D [facility] Last Admin: 11/26/17 10:19 Dose: 1 patch Tamsulosin HCl (Flomax) 0.4 mg PEG DAILY [facility] Last Admin: 11/26/17 10:19 Dose: 0.4 mg Vitamin A (Vitamin A & D Oint Ud Foilpak) 0.5 ea TOP Q4 PRN PRN Reason: Dry skin Last Admin: 11/17/17 17:09 Dose: 0.5 ea - Labs Labs: 11/23/17 11:40 11/23/17 11:40 PT 10.6 SECONDS (9.7-12.2) 11/24/15 14:10 INR 1.0 11/24/15 14:10 APTT 25 SECONDS (21-34) 11/24/15 14:10 Attending/Attestation - Attestation I have personally seen and examined this patient.: No I have fully participated in the care of the patient.: Yes I have reviewed all pertinent clinical information, including history, physical exam and plan: Yes
[2017-11-26] MEDS: Enoxaparin 40 mg Syringe SC SCH (10:19)
[2017-11-26] MEDS: levETIRAcetam 100 mg/ml (5ml) Oral Syringe PEG SCH ×2 (10:19→17:34)
[2017-11-26] MEDS: Saccharomyces Boulardi 250 mg Cap PEG SCH (10:19)
[2017-11-26] MEDS: Rosuvastatin Calcium 2.5 mg Tab PO SCH (21:21)
[2017-11-27] MEDS: Acetylcysteine 20% Inhal Soln (4ml) INH SCH ×4 (01:54→21:49)
[2017-11-27] MEDS: Albuterol-Ipratrop 3 mg / 0.5 (3 ml) UD INH SCH ×4 (01:54→21:49)
--- NOTE | 2017-11-27 06:29 | CP.PCM.PN ---
<Ben Martell R - Last Filed: 11/27/17 06:28> Subjective - Date & Time of Evaluation Date of Evaluation: 11/27/17 Time of Evaluation: 06:28 - Subjective Subjective: PGY1 Medicine Note for Dr. Moore. Patient seen and examined this morning. No acute events overnight. 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 ROS unattainable. Objective - Vital Signs/Intake and Output Vital Signs (last 24 hours): Temp Pulse Resp BP Pulse Ox 97.9 F 78 20 138/74 98 11/26/17 23:42 11/26/17 23:42 11/26/17 23:42 11/26/17 23:42 11/26/17 23:42 Intake and Output: 11/26/17 11/27/17 18:59 06:59 Intake Total 620 620 Output Total 450 500 Balance 170 120 - Medications Medications: Current Medications Acetylcysteine (Acetylcysteine 20%) 4 ml INH RQ6 [facility] Last Admin: 11/27/17 01:54 Dose: 4 ml Albuterol/Ipratropium (Duoneb 3 Mg/0.5 Mg (3 Ml) Ud) 3 ml INH RQ6 [facility] Last Admin: 11/27/17 01:54 Dose: 3 ml Aspirin (Aspirin Chewable) 81 mg PEG DAILY [facility] Last Admin: 11/26/17 10:19 Dose: 81 mg Bethanechol Chloride (Urecholine) 50 mg PO TID [facility] Last Admin: 11/26/17 17:34 Dose: 50 mg Carvedilol (Coreg) 3.125 mg PEG BID [facility] Last Admin: 11/26/17 17:34 Dose: 3.125 mg Clopidogrel Bisulfate (Plavix) 75 mg PEG DAILY [facility] Last Admin: 11/26/17 10:19 Dose: 75 mg Enoxaparin Sodium (Lovenox) 40 mg SC DAILY [facility] Last Admin: 11/26/17 10:19 Dose: 40 mg Famotidine (Pepcid) 20 mg PEG DAILY [facility] Last Admin: 11/26/17 10:19 Dose: 20 mg Finasteride (Proscar) 5 mg PEG DAILY [facility] Last Admin: 11/26/17 10:19 Dose: 5 mg Levetiracetam (Keppra) 500 mg PEG BID [facility] Last Admin: 11/26/17 17:34 Dose: 500 mg Rosuvastatin Calcium (Crestor) 2.5 mg PO HS [facility] Last Admin: 11/26/17 21:21 Dose: 2.5 mg Saccharomyces Boulardii (Florastor) 250 mg PEG DAILY [facility] Last Admin: 11/26/17 10:19 Dose: 250 mg Scopolamine (Transderm-Scop) 1 patch TD Q3D [facility] Last Admin: 11/26/17 10:19 Dose: 1 patch Tamsulosin HCl (Flomax) 0.4 mg PEG DAILY [facility] Last Admin: 11/26/17 10:19 Dose: 0.4 mg Vitamin A (Vitamin A & D Oint Ud Foilpak) 0.5 ea TOP Q4 PRN PRN Reason: Dry skin Last Admin: 11/17/17 17:09 Dose: 0.5 ea - Labs Labs: 11/23/17 11:40 11/23/17 11:40 PT 10.6 SECONDS (9.7-12.2) 11/24/15 14:10 INR 1.0 11/24/15 14:10 APTT 25 SECONDS (21-34) 11/24/15 14:10 - Additional Findings Additional findings: - Constitutional Appears: No Acute Distress - Head Exam Head Exam: ATRAUMATIC, NORMOCEPHALIC - Eye Exam Eye Exam: Normal appearance - ENT Exam ENT Exam: Mucous Membranes Moist - Neck Exam Additional comments: Trach in place - Respiratory Exam Respiratory Exam: Rhonchi. absent: Accessory Muscle Use, Respiratory Distress Additional comments: trach tube, no abnormal growth in tubing - Cardiovascular Exam Cardiovascular Exam: REGULAR RHYTHM, +S1 - GI/Abdominal Exam GI & Abdominal Exam: Soft. absent: Distended, Firm, Guarding, Rigid, Tenderness - Extremities Exam Extremities Exam: absent: Calf Tenderness, Pedal Edema Additional comments: SCDs and pressure ulcer boots in place. - Neurological Exam Neurological Exam: Altered (Patient is non-verbal from anoxic brain injury sustained on 05/2015.) - Skin Skin Exam: Dry Assessment and Plan - Assessment and Plan (Free Text) Assessment: (1) Anoxic encephalopathy Assessment & Plan: * s/p cardiac arrest in 05/2015 * no acute changes in mental status. * Pt has non spontaneous movements. * patient is currently on 40cc/hr on tube feedings * via PEG * Aspirin 81mg daily * Plavix 75 mg daily * Keppra 500mg bid Status: Chronic (2) Acute Respiratory failure Assessment & Plan: * Trach in place, continue daily monitoring for secretions. No change in management at this time. * 11/16 Discussed with nurse, Tonie Fuentes, secretions have been less and less. * Continue with aggressive suctioning multiple times a day per respiratory therapist if secretions are thickened * Scopolamine 1 patch TD Q3D JOO * Duoneb 3ml INH RQ6 * Acetylcysteine 4ml INH RQ6 * Most recent chest xray: * 09/28/17: no active disease. No significant interval change compared to. Status: Chronic (3) History of Recurrent UTIs Assessment & Plan: * ID consult: Dr. Armstrong --> help appreciated * Patient is afebrile, no apparent leukocytosis * Patient is off IV abx since 08/05/17 * patient has condom catheter and Bladder scan PRN to prevent urinary retention Status: Acute (4) History of Urinary retention Assessment & Plan: * Bethanecol 50mg PEG TID * Tamsulosin 0.4mg PEG QD * Bladder scan up to 3x a week to monitor residual urine * patient has had history of recurrent UTIs Status: Chronic (5) Hypokalemia Assessment & Plan: * Monitor and replete Status: Acute (6) History of Sacral ulcer Assessment & Plan: * Healed * Cont with offloading/cushioning/turning * Continue frequent turning, protective ointment and skin checks. Status: Resolved (7) History of coronary artery disease Assessment & Plan: * s/p cardiac stents on 06/13/15 * Cont ASA 81mg via PEG daily * Cont Coreg 3.125mg PEG BID * Cont Plavix 75 mg PEG daily * Rosuvastatin 2.5mg PO HS Status: Acute (8) History of Seizures Assessment & Plan: * Continue Keppra 500mg PEG BID for seizure prophylaxis * Monitor for activity Status: Chronic (9) Lower extremity edema Assessment & Plan: * Improved * SCDs in place * Pressure ulcer boots on b/l * Continue to monitor Status: Chronic (10) Prophylactic measure Assessment & Plan: * Pepcid 20 mg PEG BID * Lovenox 40mg SC daily * SCDs and offloading boots * Saccharomyces 250mg PEG QD * continue to turn and reposition q2hrs * Continue to monitor medication administrations and clinical presentation weekly labs. * vasoline ointment applied to feet prn to prevent hyperkeratos * Please hold feeding from 10pm-6am, placed into nursing communication * Vitamin A & D for lips Disposition: patient has prolonged hospitalization to multiple co-morbidities. per case management 10/08: unable to place patient, pending second opinion by independent examiner. <Jeison Moore - Last Filed: 12/12/17 17:16> Objective - Vital Signs/Intake and Output Vital Signs (last 24 hours): Temp Pulse Resp BP Pulse Ox 97.9 F 68 20 109/75 97 12/12/17 00:00 12/12/17 00:00 12/12/17 00:00 12/12/17 00:00 12/12/17 00:00 Intake and Output: 12/12/17 12/12/17 06:59 18:59 Intake Total 720 1050 Output Total 300 400 Balance 420 650 - Medications Medications: Current Medications Acetylcysteine (Acetylcysteine 20%) 4 ml INH RQ6 [facility] Last Admin: 12/12/17 13:23 Dose: 4 ml Albuterol/Ipratropium (Duoneb 3 Mg/0.5 Mg (3 Ml) Ud) 3 ml INH RQ6 [facility] Last Admin: 12/12/17 13:23 Dose: 3 ml Aspirin (Aspirin Chewable) 81 mg PEG DAILY [facility] Last Admin: 12/12/17 10:53 Dose: 81 mg Bethanechol Chloride (Urecholine) 50 mg PO TID [facility] Last Admin: 12/12/17 13:14 Dose: 50 mg Carvedilol (Coreg) 3.125 mg PEG BID [facility] Last Admin: 12/12/17 10:53 Dose: 3.125 mg Clopidogrel Bisulfate (Plavix) 75 mg PEG DAILY [facility] Last Admin: 12/12/17 10:53 Dose: 75 mg Enoxaparin Sodium (Lovenox) 40 mg SC DAILY [facility] Last Admin: 12/12/17 10:54 Dose: 40 mg Famotidine (Pepcid) 20 mg PEG DAILY [facility] Last Admin: 12/12/17 10:53 Dose: 20 mg Finasteride (Proscar) 5 mg PEG DAILY [facility] Last Admin: 12/12/17 10:54 Dose: 5 mg Levetiracetam (Keppra) 500 mg PEG BID [facility] Last Admin: 12/12/17 10:54 Dose: 500 mg Rosuvastatin Calcium (Crestor) 2.5 mg PO HS [facility] Last Admin: 12/11/17 21:34 Dose: 2.5 mg Saccharomyces Boulardii (Florastor) 250 mg PEG DAILY [facility] Last Admin: 12/12/17 10:53 Dose: 250 mg Scopolamine (Transderm-Scop) 1 patch TD Q3D [facility] Last Admin: 12/11/17 11:52 Dose: 1 patch Tamsulosin HCl (Flomax) 0.4 mg PEG DAILY [facility] Last Admin: 12/12/17 10:53 Dose: 0.4 mg Vitamin A (Vitamin A & D Oint Ud Foilpak) 0.5 ea TOP Q4 PRN PRN Reason: Dry skin Last Admin: 12/11/17 18:17 Dose: 0.5 ea - Labs Labs: 12/07/17 08:27 12/07/17 08:27 PT 10.6 SECONDS (9.7-12.2) 11/24/15 14:10 INR 1.0 11/24/15 14:10 APTT 25 SECONDS (21-34) 11/24/15 14:10 Attending/Attestation - Attestation I have personally seen and examined this patient.: No I have fully participated in the care of the patient.: Yes I have reviewed all pertinent clinical information, including history, physical exam and plan: Yes
[2017-11-27] MEDS: Enoxaparin 40 mg Syringe SC SCH (09:38)
[2017-11-27] MEDS: levETIRAcetam 100 mg/ml (5ml) Oral Syringe PEG SCH ×2 (09:39→17:54)
[2017-11-27] MEDS: Saccharomyces Boulardi 250 mg Cap PEG SCH (09:39)
[2017-11-27] MEDS: Rosuvastatin Calcium 2.5 mg Tab PO SCH (21:42)
--- NOTE | 2017-11-28 00:39 | CP.PCM.PN ---
<Yessneia Soto - Last Filed: 11/28/17 06:07> Subjective - Date & Time of Evaluation Date of Evaluation: 11/28/17 Time of Evaluation: 00:38 - Subjective Subjective: Medicine Progress Note: Hospitalist Service Patient seen and examined at bedside. Per nursing no acute events overnight. Patient is awake, alert. Non-verbal from anoxic brain injury. ROS not obtained. Objective - Vital Signs/Intake and Output Vital Signs (last 24 hours): Temp Pulse Resp BP Pulse Ox 97.9 F 73 20 137/78 98 11/27/17 23:44 11/27/17 23:44 11/27/17 23:44 11/27/17 23:44 11/27/17 23:44 Intake and Output: 11/27/17 11/28/17 18:59 06:59 Intake Total 960 520 Output Total 1250 500 Balance -290 20 - Medications Medications: Current Medications Acetylcysteine (Acetylcysteine 20%) 4 ml INH RQ6 [facility] Last Admin: 11/27/17 21:49 Dose: 4 ml Albuterol/Ipratropium (Duoneb 3 Mg/0.5 Mg (3 Ml) Ud) 3 ml INH RQ6 [facility] Last Admin: 11/27/17 21:49 Dose: 3 ml Aspirin (Aspirin Chewable) 81 mg PEG DAILY [facility] Last Admin: 11/27/17 09:39 Dose: 81 mg Bethanechol Chloride (Urecholine) 50 mg PO TID [facility] Last Admin: 11/27/17 17:53 Dose: 50 mg Carvedilol (Coreg) 3.125 mg PEG BID [facility] Last Admin: 11/27/17 17:53 Dose: 3.125 mg Clopidogrel Bisulfate (Plavix) 75 mg PEG DAILY [facility] Last Admin: 11/27/17 09:39 Dose: 75 mg Enoxaparin Sodium (Lovenox) 40 mg SC DAILY [facility] Last Admin: 11/27/17 09:38 Dose: 40 mg Famotidine (Pepcid) 20 mg PEG DAILY [facility] Last Admin: 11/27/17 09:39 Dose: 20 mg Finasteride (Proscar) 5 mg PEG DAILY [facility] Last Admin: 11/27/17 09:39 Dose: 5 mg Levetiracetam (Keppra) 500 mg PEG BID [facility] Last Admin: 11/27/17 17:54 Dose: 500 mg Rosuvastatin Calcium (Crestor) 2.5 mg PO HS [facility] Last Admin: 11/27/17 21:42 Dose: 2.5 mg Saccharomyces Boulardii (Florastor) 250 mg PEG DAILY [facility] Last Admin: 11/27/17 09:39 Dose: 250 mg Scopolamine (Transderm-Scop) 1 patch TD Q3D [facility] Last Admin: 11/26/17 10:19 Dose: 1 patch Tamsulosin HCl (Flomax) 0.4 mg PEG DAILY [facility] Last Admin: 11/27/17 09:39 Dose: 0.4 mg Vitamin A (Vitamin A & D Oint Ud Foilpak) 0.5 ea TOP Q4 PRN PRN Reason: Dry skin Last Admin: 11/17/17 17:09 Dose: 0.5 ea - Labs Labs: 11/23/17 11:40 11/23/17 11:40 PT 10.6 SECONDS (9.7-12.2) 11/24/15 14:10 INR 1.0 11/24/15 14:10 APTT 25 SECONDS (21-34) 11/24/15 14:10 - Additional Findings Additional findings: - Constitutional Appears: No Acute Distress - Head Exam Head Exam: ATRAUMATIC, NORMOCEPHALIC - Eye Exam Eye Exam: Normal appearance - ENT Exam ENT Exam: Mucous Membranes Moist - Neck Exam Additional comments: Trach in place - Respiratory Exam Respiratory Exam: Rhonchi. absent: Accessory Muscle Use, Respiratory Distress Additional comments: trach tube, no abnormal growth in tubing - Cardiovascular Exam Cardiovascular Exam: REGULAR RHYTHM, +S1 - GI/Abdominal Exam GI & Abdominal Exam: Soft. absent: Distended, Firm, Guarding, Rigid, Tenderness - Extremities Exam Extremities Exam: absent: Calf Tenderness, Pedal Edema Additional comments: SCDs and pressure ulcer boots in place. - Neurological Exam Neurological Exam: Altered (Patient is non-verbal from anoxic brain injury sustained on 05/2015.) - Skin Skin Exam: Dry Assessment and Plan - Assessment and Plan (Free Text) Assessment: (1) Anoxic encephalopathy Assessment & Plan: * s/p cardiac arrest in 05/2015 * no acute changes in mental status. * Pt has non spontaneous movements. * patient is currently on 40cc/hr on tube feedings * via PEG * Aspirin 81mg daily * Plavix 75 mg daily * Keppra 500mg bid Status: Chronic (2) Acute Respiratory failure Assessment & Plan: * Trach in place, continue daily monitoring for secretions. No change in management at this time. * 11/16 Discussed with nurse, Tonie Fuentes, secretions have been less and less. * Continue with aggressive suctioning multiple times a day per respiratory therapist if secretions are thickened * Scopolamine 1 patch TD Q3D JOO * Duoneb 3ml INH RQ6 * Acetylcysteine 4ml INH RQ6 * Most recent chest xray: * 09/28/17: no active disease. No significant interval change compared to. Status: Chronic (3) History of Recurrent UTIs Assessment & Plan: * ID consult: Dr. Armstrong --> help appreciated * Patient is afebrile, no apparent leukocytosis * Patient is off IV abx since 08/05/17 * patient has condom catheter and Bladder scan PRN to prevent urinary retention Status: Acute (4) History of Urinary retention Assessment & Plan: * Bethanecol 50mg PEG TID * Tamsulosin 0.4mg PEG QD * Bladder scan up to 3x a week to monitor residual urine * patient has had history of recurrent UTIs Status: Chronic (5) Hypokalemia Assessment & Plan: * Monitor and replete Status: Acute (6) History of Sacral ulcer Assessment & Plan: * Healed * Cont with offloading/cushioning/turning * Continue frequent turning, protective ointment and skin checks. Status: Resolved (7) History of coronary artery disease Assessment & Plan: * s/p cardiac stents on 06/13/15 * Cont ASA 81mg via PEG daily * Cont Coreg 3.125mg PEG BID * Cont Plavix 75 mg PEG daily * Rosuvastatin 2.5mg PO HS Status: Acute (8) History of Seizures Assessment & Plan: * Continue Keppra 500mg PEG BID for seizure prophylaxis * Monitor for activity Status: Chronic (9) Lower extremity edema Assessment & Plan: * Improved * SCDs in place * Pressure ulcer boots on b/l * Continue to monitor Status: Chronic (10) Prophylactic measure Assessment & Plan: * Pepcid 20 mg PEG daily * Lovenox 40mg SC daily * SCDs and offloading boots * Saccharomyces 250mg PEG QD * Continue to turn and reposition q2hrs * Continue to monitor medication administrations and clinical presentation weekly labs. * vasoline ointment applied to feet prn to prevent hyperkeratos * Please hold feeding from 10pm-6am, placed into nursing communication * Vitamin A & D for lips Disposition: patient has prolonged hospitalization to multiple co-morbidities. per case management 10/08: unable to place patient, pending second opinion by independent examiner. <Jeison Moore - Last Filed: 12/12/17 17:17> Objective - Vital Signs/Intake and Output Vital Signs (last 24 hours): Temp Pulse Resp BP Pulse Ox 97.9 F 68 20 109/75 97 12/12/17 00:00 12/12/17 00:00 12/12/17 00:00 12/12/17 00:00 12/12/17 00:00 Intake and Output: 12/12/17 12/12/17 06:59 18:59 Intake Total 720 1050 Output Total 300 400 Balance 420 650 - Medications Medications: Current Medications Acetylcysteine (Acetylcysteine 20%) 4 ml INH RQ6 [facility] Last Admin: 12/12/17 13:23 Dose: 4 ml Albuterol/Ipratropium (Duoneb 3 Mg/0.5 Mg (3 Ml) Ud) 3 ml INH RQ6 [facility] Last Admin: 12/12/17 13:23 Dose: 3 ml Aspirin (Aspirin Chewable) 81 mg PEG DAILY [facility] Last Admin: 12/12/17 10:53 Dose: 81 mg Bethanechol Chloride (Urecholine) 50 mg PO TID [facility] Last Admin: 12/12/17 13:14 Dose: 50 mg Carvedilol (Coreg) 3.125 mg PEG BID [facility] Last Admin: 12/12/17 10:53 Dose: 3.125 mg Clopidogrel Bisulfate (Plavix) 75 mg PEG DAILY [facility] Last Admin: 12/12/17 10:53 Dose: 75 mg Enoxaparin Sodium (Lovenox) 40 mg SC DAILY [facility] Last Admin: 12/12/17 10:54 Dose: 40 mg Famotidine (Pepcid) 20 mg PEG DAILY [facility] Last Admin: 12/12/17 10:53 Dose: 20 mg Finasteride (Proscar) 5 mg PEG DAILY [facility] Last Admin: 12/12/17 10:54 Dose: 5 mg Levetiracetam (Keppra) 500 mg PEG BID [facility] Last Admin: 12/12/17 10:54 Dose: 500 mg Rosuvastatin Calcium (Crestor) 2.5 mg PO HS [facility] Last Admin: 12/11/17 21:34 Dose: 2.5 mg Saccharomyces Boulardii (Florastor) 250 mg PEG DAILY [facility] Last Admin: 12/12/17 10:53 Dose: 250 mg Scopolamine (Transderm-Scop) 1 patch TD Q3D [facility] Last Admin: 12/11/17 11:52 Dose: 1 patch Tamsulosin HCl (Flomax) 0.4 mg PEG DAILY [facility] Last Admin: 12/12/17 10:53 Dose: 0.4 mg Vitamin A (Vitamin A & D Oint Ud Foilpak) 0.5 ea TOP Q4 PRN PRN Reason: Dry skin Last Admin: 12/11/17 18:17 Dose: 0.5 ea - Labs Labs: 12/07/17 08:27 12/07/17 08:27 PT 10.6 SECONDS (9.7-12.2) 11/24/15 14:10 INR 1.0 11/24/15 14:10 APTT 25 SECONDS (21-34) 11/24/15 14:10 Attending/Attestation - Attestation I have personally seen and examined this patient.: No I have fully participated in the care of the patient.: Yes I have reviewed all pertinent clinical information, including history, physical exam and plan: Yes
[2017-11-28] MEDS: Acetylcysteine 20% Inhal Soln (4ml) INH SCH ×4 (01:45→19:13)
[2017-11-28] MEDS: Albuterol-Ipratrop 3 mg / 0.5 (3 ml) UD INH SCH ×4 (01:45→19:13)
[2017-11-28] MEDS: levETIRAcetam 100 mg/ml (5ml) Oral Syringe PEG SCH ×2 (10:35→17:45)
[2017-11-28] MEDS: Saccharomyces Boulardi 250 mg Cap PEG SCH (10:35)
[2017-11-28] MEDS: Enoxaparin 40 mg Syringe SC SCH (10:35)
[2017-11-28] MEDS: Rosuvastatin Calcium 2.5 mg Tab PO SCH (22:39)
--- NOTE | 2017-11-29 00:40 | CP.PCM.PN ---
<Yessenia Soto - Last Filed: 11/29/17 06:40> Subjective - Date & Time of Evaluation Date of Evaluation: 11/29/17 Time of Evaluation: 00:40 - Subjective Subjective: Medicine Progress Note: Hospitalist Service Patient seen and examined at bedside. Per nursing no acute events overnight. Patient is alert and awake. Non-verbal, not following commands. ROS not obtained. Objective - Vital Signs/Intake and Output Vital Signs (last 24 hours): Temp Pulse Resp BP Pulse Ox 98.7 F 120 H 20 117/76 97 11/28/17 16:00 11/28/17 16:00 11/28/17 16:00 11/28/17 16:00 11/28/17 16:00 Intake and Output: 11/28/17 11/29/17 18:59 06:59 Intake Total 620 320 Output Total 350 400 Balance 270 -80 - Medications Medications: Current Medications Acetylcysteine (Acetylcysteine 20%) 4 ml INH RQ6 [facility] Last Admin: 11/28/17 19:13 Dose: 4 ml Albuterol/Ipratropium (Duoneb 3 Mg/0.5 Mg (3 Ml) Ud) 3 ml INH RQ6 [facility] Last Admin: 11/28/17 19:13 Dose: 3 ml Aspirin (Aspirin Chewable) 81 mg PEG DAILY [facility] Last Admin: 11/28/17 10:35 Dose: 81 mg Bethanechol Chloride (Urecholine) 50 mg PO TID [facility] Last Admin: 11/28/17 17:44 Dose: 50 mg Carvedilol (Coreg) 3.125 mg PEG BID [facility] Last Admin: 11/28/17 17:44 Dose: 3.125 mg Clopidogrel Bisulfate (Plavix) 75 mg PEG DAILY [facility] Last Admin: 11/28/17 10:35 Dose: 75 mg Enoxaparin Sodium (Lovenox) 40 mg SC DAILY [facility] Last Admin: 11/28/17 10:35 Dose: 40 mg Famotidine (Pepcid) 20 mg PEG DAILY [facility] Last Admin: 11/28/17 10:35 Dose: 20 mg Finasteride (Proscar) 5 mg PEG DAILY [facility] Last Admin: 11/28/17 10:35 Dose: 5 mg Levetiracetam (Keppra) 500 mg PEG BID [facility] Last Admin: 11/28/17 17:45 Dose: 500 mg Rosuvastatin Calcium (Crestor) 2.5 mg PO HS [facility] Last Admin: 11/28/17 22:39 Dose: 2.5 mg Saccharomyces Boulardii (Florastor) 250 mg PEG DAILY [facility] Last Admin: 11/28/17 10:35 Dose: 250 mg Scopolamine (Transderm-Scop) 1 patch TD Q3D [facility] Last Admin: 11/26/17 10:19 Dose: 1 patch Tamsulosin HCl (Flomax) 0.4 mg PEG DAILY [facility] Last Admin: 11/28/17 10:35 Dose: 0.4 mg Vitamin A (Vitamin A & D Oint Ud Foilpak) 0.5 ea TOP Q4 PRN PRN Reason: Dry skin Last Admin: 11/17/17 17:09 Dose: 0.5 ea - Labs Labs: 11/23/17 11:40 11/23/17 11:40 PT 10.6 SECONDS (9.7-12.2) 11/24/15 14:10 INR 1.0 11/24/15 14:10 APTT 25 SECONDS (21-34) 11/24/15 14:10 - Additional Findings Additional findings: - Additional Findings Additional findings: - Constitutional Appears: No Acute Distress - Head Exam Head Exam: ATRAUMATIC, NORMOCEPHALIC - Eye Exam Eye Exam: Normal appearance - ENT Exam ENT Exam: Mucous Membranes Moist - Neck Exam Additional comments: Trach in place - Respiratory Exam Respiratory Exam: Rhonchi. absent: Accessory Muscle Use, Respiratory Distress Additional comments: trach tube, no abnormal growth in tubing - Cardiovascular Exam Cardiovascular Exam: REGULAR RHYTHM, +S1 - GI/Abdominal Exam GI & Abdominal Exam: Soft. absent: Distended, Firm, Guarding, Rigid, Tenderness - Extremities Exam Extremities Exam: absent: Calf Tenderness, Pedal Edema Additional comments: SCDs and pressure ulcer boots in place. - Neurological Exam Neurological Exam: Altered (Patient is non-verbal from anoxic brain injury sustained on 05/2015.) - Skin Skin Exam: Dry Assessment and Plan - Assessment and Plan (Free Text) Assessment: (1) Anoxic encephalopathy Assessment & Plan: * s/p cardiac arrest in 05/2015 * no acute changes in mental status. * Pt has non spontaneous movements. * patient is currently on 40cc/hr on tube feedings * via PEG * Aspirin 81mg daily * Plavix 75 mg daily * Keppra 500mg bid Status: Chronic (2) Acute Respiratory failure Assessment & Plan: * Trach in place, continue daily monitoring for secretions. No change in management at this time. * 11/16 Discussed with nurse, Tonie Fuentes, secretions have been less and less. * Continue with aggressive suctioning multiple times a day per respiratory therapist if secretions are thickened * Scopolamine 1 patch TD Q3D JOO * Duoneb 3ml INH RQ6 * Acetylcysteine 4ml INH RQ6 * Most recent chest xray: * 09/28/17: no active disease. No significant interval change compared to. Status: Chronic (3) History of Recurrent UTIs Assessment & Plan: * ID consult: Dr. Armstrong --> help appreciated * Patient is afebrile, no apparent leukocytosis * Patient is off IV abx since 08/05/17 * patient has condom catheter and Bladder scan PRN to prevent urinary retention Status: Acute (4) History of Urinary retention Assessment & Plan: * Bethanecol 50mg PEG TID * Tamsulosin 0.4mg PEG QD * Bladder scan up to 3x a week to monitor residual urine * patient has had history of recurrent UTIs Status: Chronic (5) Hypokalemia Assessment & Plan: * Monitor and replete Status: Acute (6) History of Sacral ulcer Assessment & Plan: * Healed * Cont with offloading/cushioning/turning * Continue frequent turning, protective ointment and skin checks. Status: Resolved (7) History of coronary artery disease Assessment & Plan: * s/p cardiac stents on 06/13/15 * Cont ASA 81mg via PEG daily * Cont Coreg 3.125mg PEG BID * Cont Plavix 75 mg PEG daily * Rosuvastatin 2.5mg PO HS Status: Acute (8) History of Seizures Assessment & Plan: * Continue Keppra 500mg PEG BID for seizure prophylaxis * Monitor for activity Status: Chronic (9) Lower extremity edema Assessment & Plan: * Improved * SCDs in place * Pressure ulcer boots on b/l * Continue to monitor Status: Chronic (10) Prophylactic measure Assessment & Plan: * Pepcid 20 mg PEG daily * Lovenox 40mg SC daily * SCDs and offloading boots * Saccharomyces 250mg PEG QD * Continue to turn and reposition q2hrs * Continue to monitor medication administrations and clinical presentation weekly labs. * vasoline ointment applied to feet prn to prevent hyperkeratos * Please hold feeding from 10pm-6am, placed into nursing communication * Vitamin A & D for lips Disposition: patient has prolonged hospitalization to multiple co-morbidities. per case management 10/08: unable to place patient, pending second opinion by independent examiner. <Jeison Moore - Last Filed: 12/12/17 17:16> Objective - Vital Signs/Intake and Output Vital Signs (last 24 hours): Temp Pulse Resp BP Pulse Ox 97.9 F 68 20 109/75 97 12/12/17 00:00 12/12/17 00:00 12/12/17 00:00 12/12/17 00:00 12/12/17 00:00 Intake and Output: 12/12/17 12/12/17 06:59 18:59 Intake Total 720 1050 Output Total 300 400 Balance 420 650 - Medications Medications: Current Medications Acetylcysteine (Acetylcysteine 20%) 4 ml INH RQ6 [facility] Last Admin: 12/12/17 13:23 Dose: 4 ml Albuterol/Ipratropium (Duoneb 3 Mg/0.5 Mg (3 Ml) Ud) 3 ml INH RQ6 [facility] Last Admin: 12/12/17 13:23 Dose: 3 ml Aspirin (Aspirin Chewable) 81 mg PEG DAILY [facility] Last Admin: 12/12/17 10:53 Dose: 81 mg Bethanechol Chloride (Urecholine) 50 mg PO TID [facility] Last Admin: 12/12/17 13:14 Dose: 50 mg Carvedilol (Coreg) 3.125 mg PEG BID [facility] Last Admin: 12/12/17 10:53 Dose: 3.125 mg Clopidogrel Bisulfate (Plavix) 75 mg PEG DAILY [facility] Last Admin: 12/12/17 10:53 Dose: 75 mg Enoxaparin Sodium (Lovenox) 40 mg SC DAILY [facility] Last Admin: 12/12/17 10:54 Dose: 40 mg Famotidine (Pepcid) 20 mg PEG DAILY [facility] Last Admin: 12/12/17 10:53 Dose: 20 mg Finasteride (Proscar) 5 mg PEG DAILY [facility] Last Admin: 12/12/17 10:54 Dose: 5 mg Levetiracetam (Keppra) 500 mg PEG BID [facility] Last Admin: 12/12/17 10:54 Dose: 500 mg Rosuvastatin Calcium (Crestor) 2.5 mg PO HS [facility] Last Admin: 12/11/17 21:34 Dose: 2.5 mg Saccharomyces Boulardii (Florastor) 250 mg PEG DAILY [facility] Last Admin: 12/12/17 10:53 Dose: 250 mg Scopolamine (Transderm-Scop) 1 patch TD Q3D [facility] Last Admin: 12/11/17 11:52 Dose: 1 patch Tamsulosin HCl (Flomax) 0.4 mg PEG DAILY [facility] Last Admin: 12/12/17 10:53 Dose: 0.4 mg Vitamin A (Vitamin A & D Oint Ud Foilpak) 0.5 ea TOP Q4 PRN PRN Reason: Dry skin Last Admin: 12/11/17 18:17 Dose: 0.5 ea - Labs Labs: 12/07/17 08:27 12/07/17 08:27 PT 10.6 SECONDS (9.7-12.2) 11/24/15 14:10 INR 1.0 11/24/15 14:10 APTT 25 SECONDS (21-34) 11/24/15 14:10 Attending/Attestation - Attestation I have personally seen and examined this patient.: No I have fully participated in the care of the patient.: Yes I have reviewed all pertinent clinical information, including history, physical exam and plan: Yes
[2017-11-29] MEDS: Albuterol-Ipratrop 3 mg / 0.5 (3 ml) UD INH SCH ×4 (01:49→21:07)
[2017-11-29] MEDS: Acetylcysteine 20% Inhal Soln (4ml) INH SCH ×4 (01:49→21:07)
[2017-11-29] MEDS: levETIRAcetam 100 mg/ml (5ml) Oral Syringe PEG SCH ×2 (09:44→18:11)
[2017-11-29] MEDS: Enoxaparin 40 mg Syringe SC SCH (09:44)
[2017-11-29] MEDS: Saccharomyces Boulardi 250 mg Cap PEG SCH (09:44)
[2017-11-29] MEDS: Vitamins A & D Oint UD Foilpak TOP PRN (14:37)
[2017-11-29] MEDS: Rosuvastatin Calcium 2.5 mg Tab PO SCH (21:45)
[2017-11-30] MEDS: Albuterol-Ipratrop 3 mg / 0.5 (3 ml) UD INH SCH ×4 (01:20→20:53)
[2017-11-30] MEDS: Acetylcysteine 20% Inhal Soln (4ml) INH SCH ×4 (01:20→20:53)
--- NOTE | 2017-11-30 07:32 | CP.PCM.PN ---
<Ben Martell R - Last Filed: 11/30/17 15:06> Subjective - Date & Time of Evaluation Date of Evaluation: 11/30/17 Time of Evaluation: 07:30 - Subjective Subjective: PGY1 Medicine Note for Hospitalist Service Patient seen and examined this morning. No acute events overnight. 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 ROS unattainable. Objective - Vital Signs/Intake and Output Vital Signs (last 24 hours): Temp Pulse Resp BP Pulse Ox 98.4 F 74 20 126/78 98 11/29/17 23:40 11/29/17 23:40 11/29/17 23:40 11/29/17 23:40 11/29/17 23:40 Intake and Output: 11/30/17 11/30/17 06:59 18:59 Intake Total 860 Output Total 850 Balance 10 - Medications Medications: Current Medications Acetylcysteine (Acetylcysteine 20%) 4 ml INH RQ6 [facility] Last Admin: 11/30/17 01:20 Dose: 4 ml Albuterol/Ipratropium (Duoneb 3 Mg/0.5 Mg (3 Ml) Ud) 3 ml INH RQ6 [facility] Last Admin: 11/30/17 01:20 Dose: 3 ml Aspirin (Aspirin Chewable) 81 mg PEG DAILY [facility] Last Admin: 11/29/17 09:44 Dose: 81 mg Bethanechol Chloride (Urecholine) 50 mg PO TID [facility] Last Admin: 11/29/17 18:11 Dose: 50 mg Carvedilol (Coreg) 3.125 mg PEG BID [facility] Last Admin: 11/29/17 18:12 Dose: 3.125 mg Clopidogrel Bisulfate (Plavix) 75 mg PEG DAILY [facility] Last Admin: 11/29/17 09:44 Dose: 75 mg Enoxaparin Sodium (Lovenox) 40 mg SC DAILY [facility] Last Admin: 11/29/17 09:44 Dose: 40 mg Famotidine (Pepcid) 20 mg PEG DAILY [facility] Last Admin: 11/29/17 09:44 Dose: 20 mg Finasteride (Proscar) 5 mg PEG DAILY [facility] Last Admin: 11/29/17 09:44 Dose: 5 mg Levetiracetam (Keppra) 500 mg PEG BID [facility] Last Admin: 11/29/17 18:11 Dose: 500 mg Rosuvastatin Calcium (Crestor) 2.5 mg PO HS [facility] Last Admin: 11/29/17 21:45 Dose: 2.5 mg Saccharomyces Boulardii (Florastor) 250 mg PEG DAILY [facility] Last Admin: 11/29/17 09:44 Dose: 250 mg Scopolamine (Transderm-Scop) 1 patch TD Q3D [facility] Last Admin: 11/29/17 09:44 Dose: 1 patch Tamsulosin HCl (Flomax) 0.4 mg PEG DAILY [facility] Last Admin: 11/29/17 09:44 Dose: 0.4 mg Vitamin A (Vitamin A & D Oint Ud Foilpak) 0.5 ea TOP Q4 PRN PRN Reason: Dry skin Last Admin: 11/29/17 14:37 Dose: 0.5 ea - Labs Labs: 11/23/17 11:40 11/23/17 11:40 PT 10.6 SECONDS (9.7-12.2) 11/24/15 14:10 INR 1.0 11/24/15 14:10 APTT 25 SECONDS (21-34) 11/24/15 14:10 - Additional Findings Additional findings: - Constitutional Appears: No Acute Distress - Head Exam Head Exam: ATRAUMATIC, NORMOCEPHALIC - Eye Exam Eye Exam: Normal appearance - ENT Exam ENT Exam: Mucous Membranes Moist - Neck Exam Additional comments: Trach in place - Respiratory Exam Respiratory Exam: Rhonchi. absent: Accessory Muscle Use, Respiratory Distress Additional comments: trach tube, no abnormal growth in tubing - Cardiovascular Exam Cardiovascular Exam: REGULAR RHYTHM, +S1 - GI/Abdominal Exam GI & Abdominal Exam: Soft. absent: Distended, Firm, Guarding, Rigid, Tenderness - Extremities Exam Extremities Exam: absent: Calf Tenderness, Pedal Edema Additional comments: SCDs and pressure ulcer boots in place. - Neurological Exam Neurological Exam: Altered (Patient is non-verbal from anoxic brain injury sustained on 05/2015.) - Skin Skin Exam: Dry Assessment and Plan - Assessment and Plan (Free Text) Assessment: (1) Anoxic encephalopathy Assessment & Plan: * s/p cardiac arrest in 05/2015 * no acute changes in mental status. * Pt has non spontaneous movements. * patient is currently on 40cc/hr on tube feedings * via PEG * Aspirin 81mg daily * Plavix 75 mg daily * Keppra 500mg bid Status: Chronic (2) Acute Respiratory failure Assessment & Plan: * Trach in place, continue daily monitoring for secretions. No change in management at this time. * 11/16 Discussed with nurse, Tonie Fuentes, secretions have been less and less. * Continue with aggressive suctioning multiple times a day per respiratory therapist if secretions are thickened * Scopolamine 1 patch TD Q3D JOO * Duoneb 3ml INH RQ6 * Acetylcysteine 4ml INH RQ6 * Most recent chest xray: * 09/28/17: no active disease. No significant interval change compared to. Status: Chronic (3) History of Recurrent UTIs Assessment & Plan: * ID consult: Dr. Armstrong --> help appreciated * Patient is afebrile, no apparent leukocytosis * Patient is off IV abx since 08/05/17 * patient has condom catheter and Bladder scan PRN to prevent urinary retention Status: Acute (4) History of Urinary retention Assessment & Plan: * Bethanecol 50mg PEG TID * Tamsulosin 0.4mg PEG QD * Bladder scan up to 3x a week to monitor residual urine * patient has had history of recurrent UTIs Status: Chronic (5) Hypokalemia Assessment & Plan: * Monitor and replete Status: Acute (6) History of Sacral ulcer Assessment & Plan: * Healed * Cont with offloading/cushioning/turning * Continue frequent turning, protective ointment and skin checks. Status: Resolved (7) History of coronary artery disease Assessment & Plan: * s/p cardiac stents on 06/13/15 * Cont ASA 81mg via PEG daily * Cont Coreg 3.125mg PEG BID * Cont Plavix 75 mg PEG daily * Rosuvastatin 2.5mg PO HS Status: Acute (8) History of Seizures Assessment & Plan: * Continue Keppra 500mg PEG BID for seizure prophylaxis * Monitor for activity Status: Chronic (9) Lower extremity edema Assessment & Plan: * Improved * SCDs in place * Pressure ulcer boots on b/l * Continue to monitor Status: Chronic (10) Prophylactic measure Assessment & Plan: * Pepcid 20 mg PEG BID * Lovenox 40mg SC daily * SCDs and offloading boots * Saccharomyces 250mg PEG QD * continue to turn and reposition q2hrs * Continue to monitor medication administrations and clinical presentation weekly labs. * vasoline ointment applied to feet prn to prevent hyperkeratos * Please hold feeding from 10pm-6am, placed into nursing communication * Vitamin A & D for lips Disposition: patient has prolonged hospitalization to multiple co-morbidities. per case management 10/08: unable to place patient, pending second opinion by independent examiner. <Donavan Hallman - Last Filed: 02/12/18 15:04> Objective - Vital Signs/Intake and Output Vital Signs (last 24 hours): Temp Pulse Resp BP Pulse Ox 98.5 F 69 20 117/74 100 02/12/18 07:00 02/12/18 07:00 02/12/18 07:00 02/12/18 07:00 02/12/18 07:00 Intake and Output: 02/12/18 02/12/18 06:59 18:59 Intake Total 860 1680 Output Total 850 800 Balance 10 880 - Medications Medications: Current Medications Aspirin (Aspirin Chewable) 81 mg PEG DAILY [facility] Last Admin: 02/12/18 09:53 Dose: 81 mg Carvedilol (Coreg) 3.125 mg PO BID [facility] Last Admin: 02/12/18 09:53 Dose: 3.125 mg Enoxaparin Sodium (Lovenox) 40 mg SC DAILY [facility] Last Admin: 02/12/18 09:53 Dose: 40 mg Famotidine (Pepcid) 20 mg PEG DAILY [facility] Last Admin: 02/12/18 09:53 Dose: 20 mg Finasteride (Proscar) 5 mg PO DAILY [facility] Last Admin: 02/12/18 09:53 Dose: 5 mg Levetiracetam (Keppra) 500 mg PEG BID [facility] Last Admin: 02/12/18 09:53 Dose: 500 mg Mupirocin (Bactroban Ointment) 0 gm TOP DAILY [facility] Last Admin: 02/12/18 09:54 Dose: 1 applic Rosuvastatin Calcium (Crestor) 2.5 mg PEG HS [facility] Last Admin: 02/11/18 21:37 Dose: 2.5 mg Scopolamine (Transderm-Scop) 1 patch TD Q3D [facility] Last Admin: 02/12/18 09:53 Dose: 1 patch Tamsulosin HCl (Flomax) 0.4 mg PEG DAILY [facility] Last Admin: 02/12/18 09:53 Dose: 0.4 mg - Labs Labs: 02/08/18 08:38 02/08/18 08:38 PT 10.6 SECONDS (9.7-12.2) 11/24/15 14:10 INR 1.0 11/24/15 14:10 APTT 25 SECONDS (21-34) 11/24/15 14:10 Attending/Attestation - Attestation I have personally seen and examined this patient.: Yes I have fully participated in the care of the patient.: Yes I have reviewed all pertinent clinical information, including history, physical exam and plan: Yes Notes (Text): (1) Anoxic encephalopathy (2) Acute Respiratory failure (3) History of Recurrent UTIs (4) History of Urinary retention (5) Hypokalemia (6) History of Sacral ulcer (7) History of coronary artery disease
[2017-11-30 08:35] LABS: BASO % 0.6 % (0.0-2.0); EOS # 0.3 K/uL (0.0-0.7); EOS % 3.9 % (0.0-4.0); HEMOGLOBIN 11.7 g/dL (12.0-18.0); LYMPH # 2.1 K/uL (1.0-4.3); LYMPH % 26.7 % (20.0-40.0); MEAN CELL VOLUME 87.9 fL (80.0-94.0); MEAN CORPUSCULAR HEMOGLOBIN 29.7 pg (27.0-31.0); MEAN CORPUSCULAR HGB CONC 33.8 g/dL (33.0-37.0); MEAN PLATELET VOLUME 8.5 fL (7.2-11.7); MONO # 0.7 K/uL (0.0-0.8); MONO % 8.9 % (0.0-10.0); NEUT # 4.6 K/uL (1.8-7.0); NEUT % 59.9 % (50.0-75.0); RBC 3.93 Mil/uL (4.40-5.90); WHITE BLOOD COUNT 7.7 K/uL (4.8-10.8)
[2017-11-30 09:02] LABS: ALB/GLOB RATIO 0.9 (1.0-2.1); ALBUMIN 3.6 g/dL (3.5-5.0); ALT/SGPT 59 U/L (21-72); AST/SGOT 29 U/L (17-59); BLOOD UREA NITROGEN 10 mg/dL (9-20); CALCIUM 8.3 mg/dl (8.6-10.4); GFR NON-AFRICAN AMERICAN > 60
[2017-11-30] MEDS: Saccharomyces Boulardi 250 mg Cap PEG SCH (11:22)
[2017-11-30] MEDS: levETIRAcetam 100 mg/ml (5ml) Oral Syringe PEG SCH ×2 (11:24→17:38)
[2017-11-30] MEDS: Enoxaparin 40 mg Syringe SC SCH (11:24)
[2017-11-30 12:29] LABS: ALB/GLOB RATIO 0.9 (1.0-2.1); ALBUMIN 3.6 g/dL (3.5-5.0); CALCIUM 8.2 mg/dl (8.6-10.4); GFR NON-AFRICAN AMERICAN > 60
[2017-11-30 12:31] LABS: ALT/SGPT 52 U/L (21-72); AST/SGOT 34 U/L (17-59); BLOOD UREA NITROGEN 11 mg/dL (9-20)
[2017-11-30 15:01] LABS: BASO # 0.1 K/uL (0.0-0.2); BASO % 0.7 % (0.0-2.0); EOS # 0.4 K/uL (0.0-0.7); EOS % 4.7 % (0.0-4.0); HEMOGLOBIN 11.1 g/dL (12.0-18.0); LYMPH # 2.9 K/uL (1.0-4.3); LYMPH % 35.2 % (20.0-40.0); MEAN CELL VOLUME 88.7 fL (80.0-94.0); MEAN CORPUSCULAR HEMOGLOBIN 28.8 pg (27.0-31.0); MEAN CORPUSCULAR HGB CONC 32.4 g/dL (33.0-37.0); MEAN PLATELET VOLUME 9.3 fL (7.2-11.7); MONO # 0.9 K/uL (0.0-0.8); MONO % 10.8 % (0.0-10.0); NEUT % 48.6 % (50.0-75.0); RBC 3.86 Mil/uL (4.40-5.90); RED CELL DISTRIBUTION WIDTH 15.1 % (11.5-14.5); WHITE BLOOD COUNT 8.2 K/uL (4.8-10.8)
[2017-11-30] MEDS: Rosuvastatin Calcium 2.5 mg Tab PO SCH (21:56)
[2017-12-01] MEDS: Acetylcysteine 20% Inhal Soln (4ml) INH SCH ×4 (01:52→19:23)
[2017-12-01] MEDS: Albuterol-Ipratrop 3 mg / 0.5 (3 ml) UD INH SCH ×4 (01:52→19:23)
--- NOTE | 2017-12-01 07:43 | CP.PCM.PN ---
<Ben Martell R - Last Filed: 12/01/17 07:41> Subjective - Date & Time of Evaluation Date of Evaluation: 12/01/17 Time of Evaluation: 07:41 - Subjective Subjective: PGY1 Medicine Note for Hospitalist Service Patient seen and examined this morning. No acute events overnight. 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 ROS unattainable. Objective - Vital Signs/Intake and Output Vital Signs (last 24 hours): Temp Pulse Resp BP Pulse Ox 97.5 F L 63 20 108/69 97 11/30/17 23:41 11/30/17 23:41 11/30/17 23:41 11/30/17 23:41 11/30/17 23:41 Intake and Output: 12/01/17 12/01/17 06:59 18:59 Intake Total 520 Output Total 301 Balance 219 - Medications Medications: Current Medications Acetylcysteine (Acetylcysteine 20%) 4 ml INH RQ6 [facility] Last Admin: 12/01/17 01:52 Dose: 4 ml Albuterol/Ipratropium (Duoneb 3 Mg/0.5 Mg (3 Ml) Ud) 3 ml INH RQ6 [facility] Last Admin: 12/01/17 01:52 Dose: 3 ml Aspirin (Aspirin Chewable) 81 mg PEG DAILY [facility] Last Admin: 11/30/17 11:23 Dose: 81 mg Bethanechol Chloride (Urecholine) 50 mg PO TID [facility] Last Admin: 11/30/17 17:37 Dose: 50 mg Carvedilol (Coreg) 3.125 mg PEG BID [facility] Last Admin: 11/30/17 17:38 Dose: 3.125 mg Clopidogrel Bisulfate (Plavix) 75 mg PEG DAILY [facility] Last Admin: 11/30/17 11:23 Dose: 75 mg Enoxaparin Sodium (Lovenox) 40 mg SC DAILY [facility] Last Admin: 11/30/17 11:24 Dose: 40 mg Famotidine (Pepcid) 20 mg PEG DAILY [facility] Last Admin: 11/30/17 11:22 Dose: 20 mg Finasteride (Proscar) 5 mg PEG DAILY [facility] Last Admin: 11/30/17 11:23 Dose: 5 mg Levetiracetam (Keppra) 500 mg PEG BID [facility] Last Admin: 11/30/17 17:38 Dose: 500 mg Rosuvastatin Calcium (Crestor) 2.5 mg PO HS [facility] Last Admin: 11/30/17 21:56 Dose: 2.5 mg Saccharomyces Boulardii (Florastor) 250 mg PEG DAILY [facility] Last Admin: 11/30/17 11:22 Dose: 250 mg Scopolamine (Transderm-Scop) 1 patch TD Q3D [facility] Last Admin: 11/29/17 09:44 Dose: 1 patch Tamsulosin HCl (Flomax) 0.4 mg PEG DAILY [facility] Last Admin: 11/30/17 11:23 Dose: 0.4 mg Vitamin A (Vitamin A & D Oint Ud Foilpak) 0.5 ea TOP Q4 PRN PRN Reason: Dry skin Last Admin: 11/29/17 14:37 Dose: 0.5 ea - Labs Labs: 11/30/17 14:53 11/30/17 11:50 PT 10.6 SECONDS (9.7-12.2) 11/24/15 14:10 INR 1.0 11/24/15 14:10 APTT 25 SECONDS (21-34) 11/24/15 14:10 - Additional Findings Additional findings: - Constitutional Appears: No Acute Distress - Head Exam Head Exam: ATRAUMATIC, NORMOCEPHALIC - Eye Exam Eye Exam: Normal appearance - ENT Exam ENT Exam: Mucous Membranes Moist - Neck Exam Additional comments: Trach in place - Respiratory Exam Respiratory Exam: Rhonchi. absent: Accessory Muscle Use, Respiratory Distress Additional comments: trach tube, no abnormal growth in tubing - Cardiovascular Exam Cardiovascular Exam: REGULAR RHYTHM, +S1 - GI/Abdominal Exam GI & Abdominal Exam: Soft. absent: Distended, Firm, Guarding, Rigid, Tenderness - Extremities Exam Extremities Exam: absent: Calf Tenderness, Pedal Edema Additional comments: SCDs and pressure ulcer boots in place. - Neurological Exam Neurological Exam: Altered (Patient is non-verbal from anoxic brain injury sustained on 05/2015.) - Skin Skin Exam: Dry Assessment and Plan - Assessment and Plan (Free Text) Assessment: (1) Anoxic encephalopathy Assessment & Plan: * s/p cardiac arrest in 05/2015 * no acute changes in mental status. * Pt has non spontaneous movements. * patient is currently on 40cc/hr on tube feedings * via PEG * Aspirin 81mg daily * Plavix 75 mg daily * Keppra 500mg bid Status: Chronic (2) Acute Respiratory failure Assessment & Plan: * Trach in place, continue daily monitoring for secretions. No change in management at this time. * 11/16 Discussed with nurse, Tonie Fuentes, secretions have been less and less. * Continue with aggressive suctioning multiple times a day per respiratory therapist if secretions are thickened * Scopolamine 1 patch TD Q3D JOO * Duoneb 3ml INH RQ6 * Acetylcysteine 4ml INH RQ6 * Most recent chest xray: * 09/28/17: no active disease. No significant interval change compared to. Status: Chronic (3) History of Recurrent UTIs Assessment & Plan: * ID consult: Dr. Armstrong --> help appreciated * Patient is afebrile, no apparent leukocytosis * Patient is off IV abx since 08/05/17 * patient has condom catheter and Bladder scan PRN to prevent urinary retention Status: Acute (4) History of Urinary retention Assessment & Plan: * Bethanecol 50mg PEG TID * Tamsulosin 0.4mg PEG QD * Bladder scan up to 3x a week to monitor residual urine * patient has had history of recurrent UTIs Status: Chronic (5) Hypokalemia Assessment & Plan: * Monitor and replete Status: Acute (6) History of Sacral ulcer Assessment & Plan: * Healed * Cont with offloading/cushioning/turning * Continue frequent turning, protective ointment and skin checks. Status: Resolved (7) History of coronary artery disease Assessment & Plan: * s/p cardiac stents on 06/13/15 * Cont ASA 81mg via PEG daily * Cont Coreg 3.125mg PEG BID * Cont Plavix 75 mg PEG daily * Rosuvastatin 2.5mg PO HS Status: Acute (8) History of Seizures Assessment & Plan: * Continue Keppra 500mg PEG BID for seizure prophylaxis * Monitor for activity Status: Chronic (9) Lower extremity edema Assessment & Plan: * Improved * SCDs in place * Pressure ulcer boots on b/l * Continue to monitor Status: Chronic (10) Prophylactic measure Assessment & Plan: * Pepcid 20 mg PEG BID * Lovenox 40mg SC daily * SCDs and offloading boots * Saccharomyces 250mg PEG QD * continue to turn and reposition q2hrs * Continue to monitor medication administrations and clinical presentation weekly labs. * vasoline ointment applied to feet prn to prevent hyperkeratos * Please hold feeding from 10pm-6am, placed into nursing communication * Vitamin A & D for lips Disposition: patient has prolonged hospitalization to multiple co-morbidities. per case management 10/08: unable to place patient, pending second opinion by independent examiner. <Donavan Hallman - Last Filed: 02/12/18 15:05> Objective - Vital Signs/Intake and Output Vital Signs (last 24 hours): Temp Pulse Resp BP Pulse Ox 98.5 F 69 20 117/74 100 02/12/18 07:00 02/12/18 07:00 02/12/18 07:00 02/12/18 07:00 02/12/18 07:00 Intake and Output: 02/12/18 02/12/18 06:59 18:59 Intake Total 860 1680 Output Total 850 800 Balance 10 880 - Medications Medications: Current Medications Aspirin (Aspirin Chewable) 81 mg PEG DAILY [facility] Last Admin: 02/12/18 09:53 Dose: 81 mg Carvedilol (Coreg) 3.125 mg PO BID [facility] Last Admin: 02/12/18 09:53 Dose: 3.125 mg Enoxaparin Sodium (Lovenox) 40 mg SC DAILY [facility] Last Admin: 02/12/18 09:53 Dose: 40 mg Famotidine (Pepcid) 20 mg PEG DAILY [facility] Last Admin: 02/12/18 09:53 Dose: 20 mg Finasteride (Proscar) 5 mg PO DAILY [facility] Last Admin: 02/12/18 09:53 Dose: 5 mg Levetiracetam (Keppra) 500 mg PEG BID [facility] Last Admin: 02/12/18 09:53 Dose: 500 mg Mupirocin (Bactroban Ointment) 0 gm TOP DAILY [facility] Last Admin: 02/12/18 09:54 Dose: 1 applic Rosuvastatin Calcium (Crestor) 2.5 mg PEG HS [facility] Last Admin: 02/11/18 21:37 Dose: 2.5 mg Scopolamine (Transderm-Scop) 1 patch TD Q3D [facility] Last Admin: 02/12/18 09:53 Dose: 1 patch Tamsulosin HCl (Flomax) 0.4 mg PEG DAILY [facility] Last Admin: 02/12/18 09:53 Dose: 0.4 mg - Labs Labs: 02/08/18 08:38 02/08/18 08:38 PT 10.6 SECONDS (9.7-12.2) 11/24/15 14:10 INR 1.0 11/24/15 14:10 APTT 25 SECONDS (21-34) 11/24/15 14:10 Attending/Attestation - Attestation I have personally seen and examined this patient.: Yes I have fully participated in the care of the patient.: Yes I have reviewed all pertinent clinical information, including history, physical exam and plan: Yes Notes (Text): (1) Anoxic encephalopathy (2) Acute Respiratory failure (3) History of Recurrent UTIs (4) History of Urinary retention (5) Hypokalemia (6) History of Sacral ulcer (7) History of coronary artery disease
[2017-12-01] MEDS: levETIRAcetam 100 mg/ml (5ml) Oral Syringe PEG SCH ×2 (11:30→18:31)
[2017-12-01] MEDS: Saccharomyces Boulardi 250 mg Cap PEG SCH (11:30)
[2017-12-01] MEDS: Enoxaparin 40 mg Syringe SC SCH (11:31)
[2017-12-01] MEDS: Rosuvastatin Calcium 2.5 mg Tab PO SCH (21:41)
[2017-12-02] MEDS: Acetylcysteine 20% Inhal Soln (4ml) INH SCH ×4 (01:35→20:31)
[2017-12-02] MEDS: Albuterol-Ipratrop 3 mg / 0.5 (3 ml) UD INH SCH ×4 (01:35→20:31)
--- NOTE | 2017-12-02 07:00 | CP.PCM.PN ---
<Ben Martell - Last Filed: 12/02/17 06:59> Subjective - Date & Time of Evaluation Date of Evaluation: 12/02/17 Time of Evaluation: 06:59 - Subjective Subjective: PGY1 Medicine Note for Hospitalist Service Patient seen and examined this morning. No acute events overnight. 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 ROS unattainable. Objective - Vital Signs/Intake and Output Vital Signs (last 24 hours): Temp Pulse Resp BP Pulse Ox 97.6 F 72 20 104/58 L 99 12/02/17 00:00 12/02/17 00:00 12/02/17 00:00 12/02/17 00:00 12/02/17 00:00 Intake and Output: 12/01/17 12/02/17 18:59 06:59 Intake Total 1160 Output Total 400 Balance 760 - Medications Medications: Current Medications Acetylcysteine (Acetylcysteine 20%) 4 ml INH RQ6 [facility] Last Admin: 12/02/17 01:35 Dose: 4 ml Albuterol/Ipratropium (Duoneb 3 Mg/0.5 Mg (3 Ml) Ud) 3 ml INH RQ6 [facility] Last Admin: 12/02/17 01:35 Dose: 3 ml Aspirin (Aspirin Chewable) 81 mg PEG DAILY [facility] Last Admin: 12/01/17 11:31 Dose: 81 mg Bethanechol Chloride (Urecholine) 50 mg PO TID [facility] Last Admin: 12/01/17 18:31 Dose: 50 mg Carvedilol (Coreg) 3.125 mg PEG BID [facility] Last Admin: 12/01/17 18:31 Dose: 3.125 mg Clopidogrel Bisulfate (Plavix) 75 mg PEG DAILY [facility] Last Admin: 12/01/17 11:30 Dose: 75 mg Enoxaparin Sodium (Lovenox) 40 mg SC DAILY [facility] Last Admin: 12/01/17 11:31 Dose: 40 mg Famotidine (Pepcid) 20 mg PEG DAILY [facility] Last Admin: 12/01/17 11:31 Dose: 20 mg Finasteride (Proscar) 5 mg PEG DAILY [facility] Last Admin: 12/01/17 11:30 Dose: 5 mg Levetiracetam (Keppra) 500 mg PEG BID [facility] Last Admin: 12/01/17 18:31 Dose: 500 mg Rosuvastatin Calcium (Crestor) 2.5 mg PO HS [facility] Last Admin: 12/01/17 21:41 Dose: 2.5 mg Saccharomyces Boulardii (Florastor) 250 mg PEG DAILY [facility] Last Admin: 12/01/17 11:30 Dose: 250 mg Scopolamine (Transderm-Scop) 1 patch TD Q3D [facility] Last Admin: 11/29/17 09:44 Dose: 1 patch Tamsulosin HCl (Flomax) 0.4 mg PEG DAILY [facility] Last Admin: 12/01/17 11:31 Dose: 0.4 mg Vitamin A (Vitamin A & D Oint Ud Foilpak) 0.5 ea TOP Q4 PRN PRN Reason: Dry skin Last Admin: 11/29/17 14:37 Dose: 0.5 ea - Labs Labs: 11/30/17 14:53 11/30/17 11:50 PT 10.6 SECONDS (9.7-12.2) 11/24/15 14:10 INR 1.0 11/24/15 14:10 APTT 25 SECONDS (21-34) 11/24/15 14:10 - Additional Findings Additional findings: - Constitutional Appears: No Acute Distress - Head Exam Head Exam: ATRAUMATIC, NORMOCEPHALIC - Eye Exam Eye Exam: Normal appearance - ENT Exam ENT Exam: Mucous Membranes Moist - Neck Exam Additional comments: Trach in place - Respiratory Exam Respiratory Exam: Rhonchi. absent: Accessory Muscle Use, Respiratory Distress Additional comments: trach tube, no abnormal growth in tubing - Cardiovascular Exam Cardiovascular Exam: REGULAR RHYTHM, +S1 - GI/Abdominal Exam GI & Abdominal Exam: Soft. absent: Distended, Firm, Guarding, Rigid, Tenderness - Extremities Exam Extremities Exam: absent: Calf Tenderness, Pedal Edema Additional comments: SCDs and pressure ulcer boots in place. - Neurological Exam Neurological Exam: Altered (Patient is non-verbal from anoxic brain injury sustained on 05/2015.) - Skin Skin Exam: Dry Assessment and Plan - Assessment and Plan (Free Text) Assessment: (1) Anoxic encephalopathy Assessment & Plan: * s/p cardiac arrest in 05/2015 * no acute changes in mental status. * Pt has non spontaneous movements. * patient is currently on 40cc/hr on tube feedings * via PEG * Aspirin 81mg daily * Plavix 75 mg daily * Keppra 500mg bid Status: Chronic (2) Acute Respiratory failure Assessment & Plan: * Trach in place, continue daily monitoring for secretions. No change in management at this time. * 11/16 Discussed with nurse, Tonie Fuentes, secretions have been less and less. * Continue with aggressive suctioning multiple times a day per respiratory therapist if secretions are thickened * Scopolamine 1 patch TD Q3D JOO * Duoneb 3ml INH RQ6 * Acetylcysteine 4ml INH RQ6 * Most recent chest xray: * 09/28/17: no active disease. No significant interval change compared to. Status: Chronic (3) History of Recurrent UTIs Assessment & Plan: * ID consult: Dr. Armstrong --> help appreciated * Patient is afebrile, no apparent leukocytosis * Patient is off IV abx since 08/05/17 * patient has condom catheter and Bladder scan PRN to prevent urinary retention Status: Acute (4) History of Urinary retention Assessment & Plan: * Bethanecol 50mg PEG TID * Tamsulosin 0.4mg PEG QD * Bladder scan up to 3x a week to monitor residual urine * patient has had history of recurrent UTIs Status: Chronic (5) Hypokalemia Assessment & Plan: * Monitor and replete Status: Acute (6) History of Sacral ulcer Assessment & Plan: * Healed * Cont with offloading/cushioning/turning * Continue frequent turning, protective ointment and skin checks. Status: Resolved (7) History of coronary artery disease Assessment & Plan: * s/p cardiac stents on 06/13/15 * Cont ASA 81mg via PEG daily * Cont Coreg 3.125mg PEG BID * Cont Plavix 75 mg PEG daily * Rosuvastatin 2.5mg PO HS Status: Acute (8) History of Seizures Assessment & Plan: * Continue Keppra 500mg PEG BID for seizure prophylaxis * Monitor for activity Status: Chronic (9) Lower extremity edema Assessment & Plan: * Improved * SCDs in place * Pressure ulcer boots on b/l * Continue to monitor Status: Chronic (10) Prophylactic measure Assessment & Plan: * Pepcid 20 mg PEG BID * Lovenox 40mg SC daily * SCDs and offloading boots * Saccharomyces 250mg PEG QD * continue to turn and reposition q2hrs * Continue to monitor medication administrations and clinical presentation weekly labs. * vasoline ointment applied to feet prn to prevent hyperkeratos * Please hold feeding from 10pm-6am, placed into nursing communication * Vitamin A & D for lips Disposition: patient has prolonged hospitalization to multiple co-morbidities. per case management 10/08: unable to place patient, pending second opinion by independent examiner. <Donavan Hallman - Last Filed: 02/12/18 15:05> Objective - Vital Signs/Intake and Output Vital Signs (last 24 hours): Temp Pulse Resp BP Pulse Ox 98.5 F 69 20 117/74 100 02/12/18 07:00 02/12/18 07:00 02/12/18 07:00 02/12/18 07:00 02/12/18 07:00 Intake and Output: 02/12/18 02/12/18 06:59 18:59 Intake Total 860 1680 Output Total 850 800 Balance 10 880 - Medications Medications: Current Medications Aspirin (Aspirin Chewable) 81 mg PEG DAILY [facility] Last Admin: 02/12/18 09:53 Dose: 81 mg Carvedilol (Coreg) 3.125 mg PO BID [facility] Last Admin: 02/12/18 09:53 Dose: 3.125 mg Enoxaparin Sodium (Lovenox) 40 mg SC DAILY [facility] Last Admin: 02/12/18 09:53 Dose: 40 mg Famotidine (Pepcid) 20 mg PEG DAILY [facility] Last Admin: 02/12/18 09:53 Dose: 20 mg Finasteride (Proscar) 5 mg PO DAILY [facility] Last Admin: 02/12/18 09:53 Dose: 5 mg Levetiracetam (Keppra) 500 mg PEG BID [facility] Last Admin: 02/12/18 09:53 Dose: 500 mg Mupirocin (Bactroban Ointment) 0 gm TOP DAILY [facility] Last Admin: 02/12/18 09:54 Dose: 1 applic Rosuvastatin Calcium (Crestor) 2.5 mg PEG HS [facility] Last Admin: 02/11/18 21:37 Dose: 2.5 mg Scopolamine (Transderm-Scop) 1 patch TD Q3D [facility] Last Admin: 02/12/18 09:53 Dose: 1 patch Tamsulosin HCl (Flomax) 0.4 mg PEG DAILY [facility] Last Admin: 02/12/18 09:53 Dose: 0.4 mg - Labs Labs: 02/08/18 08:38 02/08/18 08:38 PT 10.6 SECONDS (9.7-12.2) 11/24/15 14:10 INR 1.0 11/24/15 14:10 APTT 25 SECONDS (21-34) 11/24/15 14:10 Attending/Attestation - Attestation I have personally seen and examined this patient.: Yes I have fully participated in the care of the patient.: Yes I have reviewed all pertinent clinical information, including history, physical exam and plan: Yes Notes (Text): (1) Anoxic encephalopathy (2) Acute Respiratory failure (3) History of Recurrent UTIs (4) History of Urinary retention (5) Hypokalemia (6) History of Sacral ulcer (7) History of coronary artery disease
[2017-12-02] MEDS: Enoxaparin 40 mg Syringe SC SCH (09:01)
[2017-12-02] MEDS: Saccharomyces Boulardi 250 mg Cap PEG SCH (09:02)
[2017-12-02] MEDS: levETIRAcetam 100 mg/ml (5ml) Oral Syringe PEG SCH ×2 (09:02→17:54)
[2017-12-02] MEDS: Rosuvastatin Calcium 2.5 mg Tab PO SCH (21:51)
[2017-12-03] MEDS: Acetylcysteine 20% Inhal Soln (4ml) INH SCH ×4 (01:16→19:57)
[2017-12-03] MEDS: Albuterol-Ipratrop 3 mg / 0.5 (3 ml) UD INH SCH ×4 (01:16→19:57)
--- NOTE | 2017-12-03 07:25 | CP.PCM.PN ---
<Ben Martell - Last Filed: 12/03/17 07:24> Subjective - Date & Time of Evaluation Date of Evaluation: 12/03/17 Time of Evaluation: 07:24 - Subjective Subjective: PGY1 Medicine Note for Hospitalist Service Patient seen and examined this morning. No acute events overnight. 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 ROS unattainable. Objective - Vital Signs/Intake and Output Vital Signs (last 24 hours): Temp Pulse Resp BP Pulse Ox 97.6 F 64 20 101/60 98 12/02/17 23:35 12/02/17 23:35 12/02/17 23:35 12/02/17 23:35 12/02/17 23:35 - Medications Medications: Current Medications Acetylcysteine (Acetylcysteine 20%) 4 ml INH RQ6 [facility] Last Admin: 12/03/17 07:22 Dose: 4 ml Albuterol/Ipratropium (Duoneb 3 Mg/0.5 Mg (3 Ml) Ud) 3 ml INH RQ6 [facility] Last Admin: 12/03/17 07:22 Dose: 3 ml Aspirin (Aspirin Chewable) 81 mg PEG DAILY [facility] Last Admin: 12/02/17 09:02 Dose: 81 mg Bethanechol Chloride (Urecholine) 50 mg PO TID [facility] Last Admin: 12/02/17 17:54 Dose: 50 mg Carvedilol (Coreg) 3.125 mg PEG BID [facility] Last Admin: 12/02/17 17:54 Dose: 3.125 mg Clopidogrel Bisulfate (Plavix) 75 mg PEG DAILY [facility] Last Admin: 12/02/17 09:02 Dose: 75 mg Enoxaparin Sodium (Lovenox) 40 mg SC DAILY [facility] Last Admin: 12/02/17 09:01 Dose: 40 mg Famotidine (Pepcid) 20 mg PEG DAILY [facility] Last Admin: 12/02/17 09:02 Dose: 20 mg Finasteride (Proscar) 5 mg PEG DAILY [facility] Last Admin: 12/02/17 09:02 Dose: 5 mg Levetiracetam (Keppra) 500 mg PEG BID [facility] Last Admin: 12/02/17 17:54 Dose: 500 mg Rosuvastatin Calcium (Crestor) 2.5 mg PO HS [facility] Last Admin: 12/02/17 21:51 Dose: 2.5 mg Saccharomyces Boulardii (Florastor) 250 mg PEG DAILY [facility] Last Admin: 12/02/17 09:02 Dose: 250 mg Scopolamine (Transderm-Scop) 1 patch TD Q3D [facility] Last Admin: 12/02/17 09:01 Dose: 1 patch Tamsulosin HCl (Flomax) 0.4 mg PEG DAILY [facility] Last Admin: 12/02/17 09:02 Dose: 0.4 mg Vitamin A (Vitamin A & D Oint Ud Foilpak) 0.5 ea TOP Q4 PRN PRN Reason: Dry skin Last Admin: 11/29/17 14:37 Dose: 0.5 ea - Labs Labs: 11/30/17 14:53 11/30/17 11:50 PT 10.6 SECONDS (9.7-12.2) 11/24/15 14:10 INR 1.0 11/24/15 14:10 APTT 25 SECONDS (21-34) 11/24/15 14:10 - Additional Findings Additional findings: - Constitutional Appears: No Acute Distress - Head Exam Head Exam: ATRAUMATIC, NORMOCEPHALIC - Eye Exam Eye Exam: Normal appearance - ENT Exam ENT Exam: Mucous Membranes Moist - Neck Exam Additional comments: Trach in place - Respiratory Exam Respiratory Exam: Rhonchi. absent: Accessory Muscle Use, Respiratory Distress Additional comments: trach tube, no abnormal growth in tubing - Cardiovascular Exam Cardiovascular Exam: REGULAR RHYTHM, +S1 - GI/Abdominal Exam GI & Abdominal Exam: Soft. absent: Distended, Firm, Guarding, Rigid, Tenderness - Extremities Exam Extremities Exam: absent: Calf Tenderness, Pedal Edema Additional comments: SCDs and pressure ulcer boots in place. - Neurological Exam Neurological Exam: Altered (Patient is non-verbal from anoxic brain injury sustained on 05/2015.) - Skin Skin Exam: Dry Assessment and Plan - Assessment and Plan (Free Text) Assessment: (1) Anoxic encephalopathy Assessment & Plan: * s/p cardiac arrest in 05/2015 * no acute changes in mental status. * Pt has non spontaneous movements. * patient is currently on 40cc/hr on tube feedings * via PEG * Aspirin 81mg daily * Plavix 75 mg daily * Keppra 500mg bid Status: Chronic (2) Acute Respiratory failure Assessment & Plan: * Trach in place, continue daily monitoring for secretions. No change in management at this time. * 11/16 Discussed with nurse, Tonie Fuentes, secretions have been less and less. * Continue with aggressive suctioning multiple times a day per respiratory therapist if secretions are thickened * Scopolamine 1 patch TD Q3D JOO * Duoneb 3ml INH RQ6 * Acetylcysteine 4ml INH RQ6 * Most recent chest xray: * 09/28/17: no active disease. No significant interval change compared to. Status: Chronic (3) History of Recurrent UTIs Assessment & Plan: * ID consult: Dr. Armstrong --> help appreciated * Patient is afebrile, no apparent leukocytosis * Patient is off IV abx since 08/05/17 * patient has condom catheter and Bladder scan PRN to prevent urinary retention Status: Acute (4) History of Urinary retention Assessment & Plan: * Bethanecol 50mg PEG TID * Tamsulosin 0.4mg PEG QD * Bladder scan up to 3x a week to monitor residual urine * patient has had history of recurrent UTIs Status: Chronic (5) Hypokalemia Assessment & Plan: * Monitor and replete Status: Acute (6) History of Sacral ulcer Assessment & Plan: * Healed * Cont with offloading/cushioning/turning * Continue frequent turning, protective ointment and skin checks. Status: Resolved (7) History of coronary artery disease Assessment & Plan: * s/p cardiac stents on 06/13/15 * Cont ASA 81mg via PEG daily * Cont Coreg 3.125mg PEG BID * Cont Plavix 75 mg PEG daily * Rosuvastatin 2.5mg PO HS Status: Acute (8) History of Seizures Assessment & Plan: * Continue Keppra 500mg PEG BID for seizure prophylaxis * Monitor for activity Status: Chronic (9) Lower extremity edema Assessment & Plan: * Improved * SCDs in place * Pressure ulcer boots on b/l * Continue to monitor Status: Chronic (10) Prophylactic measure Assessment & Plan: * Pepcid 20 mg PEG BID * Lovenox 40mg SC daily * SCDs and offloading boots * Saccharomyces 250mg PEG QD * continue to turn and reposition q2hrs * Continue to monitor medication administrations and clinical presentation weekly labs. * vasoline ointment applied to feet prn to prevent hyperkeratos * Please hold feeding from 10pm-6am, placed into nursing communication * Vitamin A & D for lips Disposition: patient has prolonged hospitalization to multiple co-morbidities. per case management 10/08: unable to place patient, pending second opinion by independent examiner. <Donavan Hallman - Last Filed: 02/12/18 15:06> Objective - Vital Signs/Intake and Output Vital Signs (last 24 hours): Temp Pulse Resp BP Pulse Ox 98.5 F 69 20 117/74 100 02/12/18 07:00 02/12/18 07:00 02/12/18 07:00 02/12/18 07:00 02/12/18 07:00 Intake and Output: 02/12/18 02/12/18 06:59 18:59 Intake Total 860 1680 Output Total 850 800 Balance 10 880 - Medications Medications: Current Medications Aspirin (Aspirin Chewable) 81 mg PEG DAILY [facility] Last Admin: 02/12/18 09:53 Dose: 81 mg Carvedilol (Coreg) 3.125 mg PO BID [facility] Last Admin: 02/12/18 09:53 Dose: 3.125 mg Enoxaparin Sodium (Lovenox) 40 mg SC DAILY [facility] Last Admin: 02/12/18 09:53 Dose: 40 mg Famotidine (Pepcid) 20 mg PEG DAILY [facility] Last Admin: 02/12/18 09:53 Dose: 20 mg Finasteride (Proscar) 5 mg PO DAILY [facility] Last Admin: 02/12/18 09:53 Dose: 5 mg Levetiracetam (Keppra) 500 mg PEG BID [facility] Last Admin: 02/12/18 09:53 Dose: 500 mg Mupirocin (Bactroban Ointment) 0 gm TOP DAILY [facility] Last Admin: 02/12/18 09:54 Dose: 1 applic Rosuvastatin Calcium (Crestor) 2.5 mg PEG HS [facility] Last Admin: 02/11/18 21:37 Dose: 2.5 mg Scopolamine (Transderm-Scop) 1 patch TD Q3D [facility] Last Admin: 02/12/18 09:53 Dose: 1 patch Tamsulosin HCl (Flomax) 0.4 mg PEG DAILY [facility] Last Admin: 02/12/18 09:53 Dose: 0.4 mg - Labs Labs: 02/08/18 08:38 02/08/18 08:38 PT 10.6 SECONDS (9.7-12.2) 11/24/15 14:10 INR 1.0 11/24/15 14:10 APTT 25 SECONDS (21-34) 11/24/15 14:10 Attending/Attestation - Attestation I have personally seen and examined this patient.: Yes I have fully participated in the care of the patient.: Yes I have reviewed all pertinent clinical information, including history, physical exam and plan: Yes Notes (Text): (1) Anoxic encephalopathy (2) Acute Respiratory failure (3) History of Recurrent UTIs (4) History of Urinary retention (5) Hypokalemia (6) History of Sacral ulcer (7) History of coronary artery disease
[2017-12-03] MEDS: levETIRAcetam 100 mg/ml (5ml) Oral Syringe PEG SCH ×2 (09:21→19:34)
[2017-12-03] MEDS: Saccharomyces Boulardi 250 mg Cap PEG SCH (09:21)
[2017-12-03] MEDS: Enoxaparin 40 mg Syringe SC SCH (09:21)
[2017-12-03] MEDS: Rosuvastatin Calcium 2.5 mg Tab PO SCH (21:21)
[2017-12-04] MEDS: Albuterol-Ipratrop 3 mg / 0.5 (3 ml) UD INH SCH ×4 (02:39→20:47)
[2017-12-04] MEDS: Acetylcysteine 20% Inhal Soln (4ml) INH SCH ×4 (02:39→20:47)
--- NOTE | 2017-12-04 06:55 | CP.PCM.PN ---
<Ben Martell R - Last Filed: 12/04/17 06:53> Subjective - Date & Time of Evaluation Date of Evaluation: 12/04/17 Time of Evaluation: 06:53 - Subjective Subjective: PGY1 Medicine Note for Hospitalist Service Patient seen and examined this morning. No acute events overnight. 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 ROS unattainable. Objective - Vital Signs/Intake and Output Vital Signs (last 24 hours): Temp Pulse Resp BP Pulse Ox 98.1 F 68 20 110/69 98 12/03/17 23:37 12/03/17 23:37 12/03/17 23:37 12/03/17 23:37 12/03/17 23:37 Intake and Output: 12/03/17 12/04/17 18:59 06:59 Intake Total 620 1200 Output Total 450 550 Balance 170 650 - Medications Medications: Current Medications Acetylcysteine (Acetylcysteine 20%) 4 ml INH RQ6 [facility] Last Admin: 12/04/17 02:39 Dose: 4 ml Albuterol/Ipratropium (Duoneb 3 Mg/0.5 Mg (3 Ml) Ud) 3 ml INH RQ6 [facility] Last Admin: 12/04/17 02:39 Dose: 3 ml Aspirin (Aspirin Chewable) 81 mg PEG DAILY [facility] Last Admin: 12/03/17 09:21 Dose: 81 mg Bethanechol Chloride (Urecholine) 50 mg PO TID [facility] Last Admin: 12/03/17 19:34 Dose: 50 mg Carvedilol (Coreg) 3.125 mg PEG BID [facility] Last Admin: 12/03/17 19:34 Dose: 3.125 mg Clopidogrel Bisulfate (Plavix) 75 mg PEG DAILY [facility] Last Admin: 12/03/17 09:21 Dose: 75 mg Enoxaparin Sodium (Lovenox) 40 mg SC DAILY [facility] Last Admin: 12/03/17 09:21 Dose: 40 mg Famotidine (Pepcid) 20 mg PEG DAILY [facility] Last Admin: 12/03/17 09:21 Dose: 20 mg Finasteride (Proscar) 5 mg PEG DAILY [facility] Last Admin: 12/03/17 09:21 Dose: 5 mg Levetiracetam (Keppra) 500 mg PEG BID [facility] Last Admin: 12/03/17 19:34 Dose: 500 mg Rosuvastatin Calcium (Crestor) 2.5 mg PO HS [facility] Last Admin: 12/03/17 21:21 Dose: 2.5 mg Saccharomyces Boulardii (Florastor) 250 mg PEG DAILY [facility] Last Admin: 12/03/17 09:21 Dose: 250 mg Scopolamine (Transderm-Scop) 1 patch TD Q3D [facility] Last Admin: 12/02/17 09:01 Dose: 1 patch Tamsulosin HCl (Flomax) 0.4 mg PEG DAILY [facility] Last Admin: 12/03/17 09:21 Dose: 0.4 mg Vitamin A (Vitamin A & D Oint Ud Foilpak) 0.5 ea TOP Q4 PRN PRN Reason: Dry skin Last Admin: 11/29/17 14:37 Dose: 0.5 ea - Labs Labs: 11/30/17 14:53 11/30/17 11:50 PT 10.6 SECONDS (9.7-12.2) 11/24/15 14:10 INR 1.0 11/24/15 14:10 APTT 25 SECONDS (21-34) 11/24/15 14:10 - Additional Findings Additional findings: - Constitutional Appears: No Acute Distress - Head Exam Head Exam: ATRAUMATIC, NORMOCEPHALIC - Eye Exam Eye Exam: Normal appearance - ENT Exam ENT Exam: Mucous Membranes Moist - Neck Exam Additional comments: Trach in place - Respiratory Exam Respiratory Exam: Rhonchi. absent: Accessory Muscle Use, Respiratory Distress Additional comments: trach tube, no abnormal growth in tubing - Cardiovascular Exam Cardiovascular Exam: REGULAR RHYTHM, +S1 - GI/Abdominal Exam GI & Abdominal Exam: Soft. absent: Distended, Firm, Guarding, Rigid, Tenderness - Extremities Exam Extremities Exam: absent: Calf Tenderness, Pedal Edema Additional comments: SCDs and pressure ulcer boots in place. - Neurological Exam Neurological Exam: Altered (Patient is non-verbal from anoxic brain injury sustained on 05/2015.) - Skin Skin Exam: Dry Assessment and Plan - Assessment and Plan (Free Text) Assessment: (1) Anoxic encephalopathy Assessment & Plan: * s/p cardiac arrest in 05/2015 * no acute changes in mental status. * Pt has non spontaneous movements. * patient is currently on 40cc/hr on tube feedings * via PEG * Aspirin 81mg daily * Plavix 75 mg daily * Keppra 500mg bid Status: Chronic (2) Acute Respiratory failure Assessment & Plan: * Trach in place, continue daily monitoring for secretions. No change in management at this time. * 11/16 Discussed with nurse, Tonie Fuentes, secretions have been less and less. * Continue with aggressive suctioning multiple times a day per respiratory therapist if secretions are thickened * Scopolamine 1 patch TD Q3D JOO * Duoneb 3ml INH RQ6 * Acetylcysteine 4ml INH RQ6 * Most recent chest xray: * 09/28/17: no active disease. No significant interval change compared to. Status: Chronic (3) History of Recurrent UTIs Assessment & Plan: * ID consult: Dr. Armstrong --> help appreciated * Patient is afebrile, no apparent leukocytosis * Patient is off IV abx since 08/05/17 * patient has condom catheter and Bladder scan PRN to prevent urinary retention Status: Acute (4) History of Urinary retention Assessment & Plan: * Bethanecol 50mg PEG TID * Tamsulosin 0.4mg PEG QD * Bladder scan up to 3x a week to monitor residual urine * patient has had history of recurrent UTIs Status: Chronic (5) Hypokalemia Assessment & Plan: * Monitor and replete Status: Acute (6) History of Sacral ulcer Assessment & Plan: * Healed * Cont with offloading/cushioning/turning * Continue frequent turning, protective ointment and skin checks. Status: Resolved (7) History of coronary artery disease Assessment & Plan: * s/p cardiac stents on 06/13/15 * Cont ASA 81mg via PEG daily * Cont Coreg 3.125mg PEG BID * Cont Plavix 75 mg PEG daily * Rosuvastatin 2.5mg PO HS Status: Acute (8) History of Seizures Assessment & Plan: * Continue Keppra 500mg PEG BID for seizure prophylaxis * Monitor for activity Status: Chronic (9) Lower extremity edema Assessment & Plan: * Improved * SCDs in place * Pressure ulcer boots on b/l * Continue to monitor Status: Chronic (10) Prophylactic measure Assessment & Plan: * Pepcid 20 mg PEG BID * Lovenox 40mg SC daily * SCDs and offloading boots * Saccharomyces 250mg PEG QD * continue to turn and reposition q2hrs * Continue to monitor medication administrations and clinical presentation weekly labs. * vasoline ointment applied to feet prn to prevent hyperkeratos * Please hold feeding from 10pm-6am, placed into nursing communication * Vitamin A & D for lips Disposition: patient has prolonged hospitalization to multiple co-morbidities. per case management 10/08: unable to place patient, pending second opinion by independent examiner. <Donavan Hallman - Last Filed: 02/12/18 15:07> Objective - Vital Signs/Intake and Output Vital Signs (last 24 hours): Temp Pulse Resp BP Pulse Ox 98.5 F 69 20 117/74 100 02/12/18 07:00 02/12/18 07:00 02/12/18 07:00 02/12/18 07:00 02/12/18 07:00 Intake and Output: 02/12/18 02/12/18 06:59 18:59 Intake Total 860 1680 Output Total 850 800 Balance 10 880 - Medications Medications: Current Medications Aspirin (Aspirin Chewable) 81 mg PEG DAILY [facility] Last Admin: 02/12/18 09:53 Dose: 81 mg Carvedilol (Coreg) 3.125 mg PO BID [facility] Last Admin: 02/12/18 09:53 Dose: 3.125 mg Enoxaparin Sodium (Lovenox) 40 mg SC DAILY [facility] Last Admin: 02/12/18 09:53 Dose: 40 mg Famotidine (Pepcid) 20 mg PEG DAILY [facility] Last Admin: 02/12/18 09:53 Dose: 20 mg Finasteride (Proscar) 5 mg PO DAILY [facility] Last Admin: 02/12/18 09:53 Dose: 5 mg Levetiracetam (Keppra) 500 mg PEG BID [facility] Last Admin: 02/12/18 09:53 Dose: 500 mg Mupirocin (Bactroban Ointment) 0 gm TOP DAILY [facility] Last Admin: 02/12/18 09:54 Dose: 1 applic Rosuvastatin Calcium (Crestor) 2.5 mg PEG HS [facility] Last Admin: 02/11/18 21:37 Dose: 2.5 mg Scopolamine (Transderm-Scop) 1 patch TD Q3D [facility] Last Admin: 02/12/18 09:53 Dose: 1 patch Tamsulosin HCl (Flomax) 0.4 mg PEG DAILY [facility] Last Admin: 02/12/18 09:53 Dose: 0.4 mg - Labs Labs: 02/08/18 08:38 02/08/18 08:38 PT 10.6 SECONDS (9.7-12.2) 11/24/15 14:10 INR 1.0 11/24/15 14:10 APTT 25 SECONDS (21-34) 11/24/15 14:10 Attending/Attestation - Attestation I have personally seen and examined this patient.: Yes I have fully participated in the care of the patient.: Yes I have reviewed all pertinent clinical information, including history, physical exam and plan: Yes Notes (Text): (1) Anoxic encephalopathy (2) Acute Respiratory failure (3) History of Recurrent UTIs (4) History of Urinary retention (5) Hypokalemia (6) History of Sacral ulcer (7) History of coronary artery disease
[2017-12-04] MEDS: Enoxaparin 40 mg Syringe SC SCH (10:22)
[2017-12-04] MEDS: levETIRAcetam 100 mg/ml (5ml) Oral Syringe PEG SCH ×2 (10:22→18:43)
[2017-12-04] MEDS: Saccharomyces Boulardi 250 mg Cap PEG SCH (10:22)
[2017-12-04] MEDS: Rosuvastatin Calcium 2.5 mg Tab PO SCH (22:24)
[2017-12-05] MEDS: Albuterol-Ipratrop 3 mg / 0.5 (3 ml) UD INH SCH ×4 (01:50→19:07)
[2017-12-05] MEDS: Acetylcysteine 20% Inhal Soln (4ml) INH SCH ×4 (01:50→19:07)
--- NOTE | 2017-12-05 06:08 | CP.PCM.PN ---
<Flor Jimenez - Last Filed: 12/05/17 06:07> Subjective - Date & Time of Evaluation Date of Evaluation: 12/05/17 Time of Evaluation: 06:07 - Subjective Subjective: Patient seen and examined this morning. No acute events overnight. 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 ROS unattainable. Objective - Vital Signs/Intake and Output Vital Signs (last 24 hours): Temp Pulse Resp BP Pulse Ox 98.1 F 62 20 120/80 100 12/05/17 00:00 12/05/17 00:00 12/05/17 00:00 12/05/17 00:00 12/05/17 00:00 Intake and Output: 12/04/17 12/05/17 18:59 06:59 Intake Total 620 620 Output Total 400 450 Balance 220 170 - Medications Medications: Current Medications Acetylcysteine (Acetylcysteine 20%) 4 ml INH RQ6 [facility] Last Admin: 12/05/17 01:50 Dose: 4 ml Albuterol/Ipratropium (Duoneb 3 Mg/0.5 Mg (3 Ml) Ud) 3 ml INH RQ6 [facility] Last Admin: 12/05/17 01:50 Dose: 3 ml Aspirin (Aspirin Chewable) 81 mg PEG DAILY [facility] Last Admin: 12/04/17 10:22 Dose: 81 mg Bethanechol Chloride (Urecholine) 50 mg PO TID [facility] Last Admin: 12/04/17 18:43 Dose: 50 mg Carvedilol (Coreg) 3.125 mg PEG BID [facility] Last Admin: 12/04/17 18:44 Dose: 3.125 mg Clopidogrel Bisulfate (Plavix) 75 mg PEG DAILY [facility] Last Admin: 12/04/17 10:22 Dose: 75 mg Enoxaparin Sodium (Lovenox) 40 mg SC DAILY [facility] Last Admin: 12/04/17 10:22 Dose: 40 mg Famotidine (Pepcid) 20 mg PEG DAILY [facility] Last Admin: 12/04/17 10:22 Dose: 20 mg Finasteride (Proscar) 5 mg PEG DAILY [facility] Last Admin: 12/04/17 10:22 Dose: 5 mg Levetiracetam (Keppra) 500 mg PEG BID [facility] Last Admin: 12/04/17 18:43 Dose: 500 mg Rosuvastatin Calcium (Crestor) 2.5 mg PO HS [facility] Last Admin: 12/04/17 22:24 Dose: 2.5 mg Saccharomyces Boulardii (Florastor) 250 mg PEG DAILY [facility] Last Admin: 12/04/17 10:22 Dose: 250 mg Scopolamine (Transderm-Scop) 1 patch TD Q3D [facility] Last Admin: 12/02/17 09:01 Dose: 1 patch Tamsulosin HCl (Flomax) 0.4 mg PEG DAILY [facility] Last Admin: 12/04/17 10:22 Dose: 0.4 mg Vitamin A (Vitamin A & D Oint Ud Foilpak) 0.5 ea TOP Q4 PRN PRN Reason: Dry skin Last Admin: 11/29/17 14:37 Dose: 0.5 ea - Labs Labs: 11/30/17 14:53 11/30/17 11:50 PT 10.6 SECONDS (9.7-12.2) 11/24/15 14:10 INR 1.0 11/24/15 14:10 APTT 25 SECONDS (21-34) 11/24/15 14:10 - Additional Findings Additional findings: - Constitutional Appears: No Acute Distress - Head Exam Head Exam: ATRAUMATIC, NORMOCEPHALIC - Eye Exam Eye Exam: Normal appearance - ENT Exam ENT Exam: Mucous Membranes Moist - Neck Exam Additional comments: Trach in place - Respiratory Exam Respiratory Exam: Rhonchi. absent: Accessory Muscle Use, Respiratory Distress Additional comments: trach tube, no abnormal growth in tubing - Cardiovascular Exam Cardiovascular Exam: REGULAR RHYTHM, +S1 - GI/Abdominal Exam GI & Abdominal Exam: Soft. absent: Distended, Firm, Guarding, Rigid, Tenderness - Extremities Exam Extremities Exam: absent: Calf Tenderness, Pedal Edema Additional comments: SCDs and pressure ulcer boots in place. - Neurological Exam Neurological Exam: Altered (Patient is non-verbal from anoxic brain injury sustained on 05/2015.) - Skin Skin Exam: Dry Assessment and Plan - Assessment and Plan (Free Text) Assessment: (1) Anoxic encephalopathy Assessment & Plan: * s/p cardiac arrest in 05/2015 * no acute changes in mental status. * Pt has non spontaneous movements. * patient is currently on 40cc/hr on tube feedings * via PEG * Aspirin 81mg daily * Plavix 75 mg daily * Keppra 500mg bid Status: Chronic (2) Acute Respiratory failure Assessment & Plan: * Trach in place, continue daily monitoring for secretions. No change in management at this time. * 11/16 Discussed with nurse, Tonie Fuentes, secretions have been less and less. * Continue with aggressive suctioning multiple times a day per respiratory therapist if secretions are thickened * Scopolamine 1 patch TD Q3D JOO * Duoneb 3ml INH RQ6 * Acetylcysteine 4ml INH RQ6 * Most recent chest xray: * 09/28/17: no active disease. No significant interval change compared to. Status: Chronic (3) History of Recurrent UTIs Assessment & Plan: * ID consult: Dr. Armstrong --> help appreciated * Patient is afebrile, no apparent leukocytosis * Patient is off IV abx since 08/05/17 * patient has condom catheter and Bladder scan PRN to prevent urinary retention Status: Acute (4) History of Urinary retention Assessment & Plan: * Bethanecol 50mg PEG TID * Tamsulosin 0.4mg PEG QD * Bladder scan up to 3x a week to monitor residual urine * patient has had history of recurrent UTIs Status: Chronic (5) Hypokalemia Assessment & Plan: * Monitor and replete Status: Acute (6) History of Sacral ulcer Assessment & Plan: * Healed * Cont with offloading/cushioning/turning * Continue frequent turning, protective ointment and skin checks. Status: Resolved (7) History of coronary artery disease Assessment & Plan: * s/p cardiac stents on 06/13/15 * Cont ASA 81mg via PEG daily * Cont Coreg 3.125mg PEG BID * Cont Plavix 75 mg PEG daily * Rosuvastatin 2.5mg PO HS Status: Acute (8) History of Seizures Assessment & Plan: * Continue Keppra 500mg PEG BID for seizure prophylaxis * Monitor for activity Status: Chronic (9) Lower extremity edema Assessment & Plan: * Improved * SCDs in place * Pressure ulcer boots on b/l * Continue to monitor Status: Chronic (10) Prophylactic measure Assessment & Plan: * Pepcid 20 mg PEG BID * Lovenox 40mg SC daily * SCDs and offloading boots * Saccharomyces 250mg PEG QD * continue to turn and reposition q2hrs * Continue to monitor medication administrations and clinical presentation weekly labs. * vasoline ointment applied to feet prn to prevent hyperkeratos * Please hold feeding from 10pm-6am, placed into nursing communication * Vitamin A & D for lips Disposition: patient has prolonged hospitalization to multiple co-morbidities. per case management 10/08: unable to place patient, pending second opinion by independent examiner. <Colleen Braswell V - Last Filed: 12/05/17 09:46> Objective - Vital Signs/Intake and Output Vital Signs (last 24 hours): Temp Pulse Resp BP Pulse Ox 98.7 F 68 20 122/80 97 12/05/17 08:00 12/05/17 08:00 12/05/17 08:00 12/05/17 08:00 12/05/17 08:00 Intake and Output: 12/05/17 12/05/17 06:59 18:59 Intake Total 620 380 Output Total 450 550 Balance 170 -170 - Medications Medications: Current Medications Acetylcysteine (Acetylcysteine 20%) 4 ml INH RQ6 [facility] Last Admin: 12/05/17 01:50 Dose: 4 ml Albuterol/Ipratropium (Duoneb 3 Mg/0.5 Mg (3 Ml) Ud) 3 ml INH RQ6 [facility] Last Admin: 12/05/17 01:50 Dose: 3 ml Aspirin (Aspirin Chewable) 81 mg PEG DAILY [facility] Last Admin: 12/04/17 10:22 Dose: 81 mg Bethanechol Chloride (Urecholine) 50 mg PO TID [facility] Last Admin: 12/04/17 18:43 Dose: 50 mg Carvedilol (Coreg) 3.125 mg PEG BID [facility] Last Admin: 12/04/17 18:44 Dose: 3.125 mg Clopidogrel Bisulfate (Plavix) 75 mg PEG DAILY [facility] Last Admin: 12/04/17 10:22 Dose: 75 mg Enoxaparin Sodium (Lovenox) 40 mg SC DAILY [facility] Last Admin: 12/04/17 10:22 Dose: 40 mg Famotidine (Pepcid) 20 mg PEG DAILY [facility] Last Admin: 12/04/17 10:22 Dose: 20 mg Finasteride (Proscar) 5 mg PEG DAILY [facility] Last Admin: 12/04/17 10:22 Dose: 5 mg Levetiracetam (Keppra) 500 mg PEG BID [facility] Last Admin: 12/04/17 18:43 Dose: 500 mg Rosuvastatin Calcium (Crestor) 2.5 mg PO [facility] Last Admin: 12/04/17 22:24 Dose: 2.5 mg Saccharomyces Boulardii (Florastor) 250 mg PEG DAILY [facility] Last Admin: 12/04/17 10:22 Dose: 250 mg Scopolamine (Transderm-Scop) 1 patch TD Q3D [facility] Last Admin: 12/02/17 09:01 Dose: 1 patch Tamsulosin HCl (Flomax) 0.4 mg PEG DAILY [facility] Last Admin: 12/04/17 10:22 Dose: 0.4 mg Vitamin A (Vitamin A & D Oint Ud Foilpak) 0.5 ea TOP Q4 PRN PRN Reason: Dry skin Last Admin: 11/29/17 14:37 Dose: 0.5 ea - Labs Labs: 11/30/17 14:53 11/30/17 11:50 PT 10.6 SECONDS (9.7-12.2) 11/24/15 14:10 INR 1.0 11/24/15 14:10 APTT 25 SECONDS (21-34) 11/24/15 14:10 Attending/Attestation - Attestation I have personally seen and examined this patient.: Yes I have fully participated in the care of the patient.: Yes I have reviewed all pertinent clinical information, including history, physical exam and plan: Yes Notes (Text): Patient seen, examined, and case discussed with day-time resident. Unable to review ROS secondary to patient's clinical condition. Patient has prolonged hospitalization for multiple comorbidities listed below. patient is pending placement. Per case management note from 10/08: pending second opinion by independent examiner. Note: there is no case management/ social on the weekend. No acute changes noted. Assessment/Plan (1) Anoxic encephalopathy Assessment & Plan: * s/p cardiac arrest in 05/2015 * no acute changes in mental status. * Pt has non spontaneous movements. * patient is currently on 40cc/hr on tube feedings * via PEG * Aspirin 81mg daily * Plavix 75 mg daily * Keppra 500mg bid Status: Chronic (2) Acute Respiratory failure Assessment & Plan: * Trach in place, continue daily monitoring for secretions. No change in management at this time. * Continue with aggressive suctioning multiple times a day per respiratory therapist if secretions are thickened * Scopolamine 1 patch TD Q3D [facility] * Most recent chest xray: * 09/28/17: no active disease. No significant interval change compared to. Status: Chronic (3) History of Recurrent UTIs Assessment & Plan: * ID consult: Dr. Armstrong --> help appreciated * Patient is afebrile, no apparent leukocytosis * Patient is off IV abx since 08/05/17 * patient has condom catheter and Bladder scan PRN to prevent urinary retention Status: Acute (4) History of Urinary retention Assessment & Plan: * Bethanecol 50mg PEG TID * Bladder scan up to 3x a week to monitor residual urine * patient has had history of recurrent UTIs Status: Chronic (5) Hypokalemia Assessment & Plan: * Monitor and replete Status: Acute (6) History of Sacral ulcer Assessment & Plan: * Healed * Cont with offloading/cushioning/turning * Continue frequent turning, protective ointment and skin checks. Status: Resolved (7) History of coronary artery disease Assessment & Plan: * s/p cardiac stents on 06/13/15 * Cont ASA 81mg via PEG daily * Cont Coreg 3.125mg PEG BID * Cont Plavix 75 mg PEG daily Status: Acute (8) History of Seizures Assessment & Plan: * Continue Keppra 500mg PEG BID for seizure prophylaxis * Monitor for activity Status: Chronic (9) Lower extremity edema Assessment & Plan: * Improved * SCDs in place * Pressure ulcer boots on b/l * Continue to monitor Status: Chronic (10) Prophylactic measure Assessment & Plan: * Pepcid 20 mg PEG daily * Lovenox 40mg SC daily * SCDs and offloading boots * continue to turn and reposition q2hrs * Continue to monitor medication administrations and clinical presentation weekly labs. * vasoline ointment applied to feet prn to prevent hyperkeratos * Please hold feeding from 10pm-6am, placed into nursing communication * Vitamin A & D for lips Disposition: patient has prolonged hospitalization to multiple co-morbidities. per case management 10/08: unable to place patient, pending second opinion by independent examiner.
[2017-12-05] MEDS: Saccharomyces Boulardi 250 mg Cap PEG SCH (10:34)
[2017-12-05] MEDS: levETIRAcetam 100 mg/ml (5ml) Oral Syringe PEG SCH ×2 (10:34→18:18)
[2017-12-05] MEDS: Enoxaparin 40 mg Syringe SC SCH (10:38)
[2017-12-05] MEDS: Rosuvastatin Calcium 2.5 mg Tab PO SCH (21:28)
[2017-12-06] MEDS: Acetylcysteine 20% Inhal Soln (4ml) INH SCH ×4 (01:18→19:16)
[2017-12-06] MEDS: Albuterol-Ipratrop 3 mg / 0.5 (3 ml) UD INH SCH ×4 (01:18→19:16)
--- NOTE | 2017-12-06 02:02 | CP.PCM.PN ---
<Flor Jimenez - Last Filed: 12/06/17 02:00> Subjective - Date & Time of Evaluation Date of Evaluation: 12/06/17 Time of Evaluation: 02:00 - Subjective Subjective: Patient seen and examined this morning. No acute events overnight. 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 ROS unattainable Objective - Vital Signs/Intake and Output Vital Signs (last 24 hours): Temp Pulse Resp BP Pulse Ox 97.2 F L 85 20 127/55 L 98 12/05/17 23:40 12/05/17 23:40 12/05/17 23:40 12/05/17 23:40 12/05/17 23:40 Intake and Output: 12/05/17 12/06/17 18:59 06:59 Intake Total 1000 820 Output Total 1050 300 Balance -50 520 - Medications Medications: Current Medications Acetylcysteine (Acetylcysteine 20%) 4 ml INH RQ6 [facility] Last Admin: 12/06/17 01:18 Dose: 4 ml Albuterol/Ipratropium (Duoneb 3 Mg/0.5 Mg (3 Ml) Ud) 3 ml INH RQ6 [facility] Last Admin: 12/06/17 01:18 Dose: 3 ml Aspirin (Aspirin Chewable) 81 mg PEG DAILY [facility] Last Admin: 12/05/17 10:34 Dose: 81 mg Bethanechol Chloride (Urecholine) 50 mg PO TID [facility] Last Admin: 12/05/17 18:18 Dose: 50 mg Carvedilol (Coreg) 3.125 mg PEG BID [facility] Last Admin: 12/05/17 18:00 Dose: 3.125 mg Clopidogrel Bisulfate (Plavix) 75 mg PEG DAILY [facility] Last Admin: 12/05/17 10:34 Dose: 75 mg Enoxaparin Sodium (Lovenox) 40 mg SC DAILY [facility] Last Admin: 12/05/17 10:38 Dose: 40 mg Famotidine (Pepcid) 20 mg PEG DAILY [facility] Last Admin: 12/05/17 10:34 Dose: 20 mg Finasteride (Proscar) 5 mg PEG DAILY [facility] Last Admin: 12/05/17 10:34 Dose: 5 mg Levetiracetam (Keppra) 500 mg PEG BID [facility] Last Admin: 12/05/17 18:18 Dose: 500 mg Rosuvastatin Calcium (Crestor) 2.5 mg PO HS [facility] Last Admin: 12/05/17 21:28 Dose: 2.5 mg Saccharomyces Boulardii (Florastor) 250 mg PEG DAILY [facility] Last Admin: 12/05/17 10:34 Dose: 250 mg Scopolamine (Transderm-Scop) 1 patch TD Q3D [facility] Last Admin: 12/05/17 10:35 Dose: 1 patch Tamsulosin HCl (Flomax) 0.4 mg PEG DAILY [facility] Last Admin: 12/05/17 10:34 Dose: 0.4 mg Vitamin A (Vitamin A & D Oint Ud Foilpak) 0.5 ea TOP Q4 PRN PRN Reason: Dry skin Last Admin: 11/29/17 14:37 Dose: 0.5 ea - Labs Labs: 11/30/17 14:53 11/30/17 11:50 PT 10.6 SECONDS (9.7-12.2) 11/24/15 14:10 INR 1.0 11/24/15 14:10 APTT 25 SECONDS (21-34) 11/24/15 14:10 - Additional Findings Additional findings: - Constitutional Appears: No Acute Distress - Head Exam Head Exam: ATRAUMATIC, NORMOCEPHALIC - Eye Exam Eye Exam: Normal appearance - ENT Exam ENT Exam: Mucous Membranes Moist - Neck Exam Additional comments: Trach in place - Respiratory Exam Respiratory Exam: Rhonchi. absent: Accessory Muscle Use, Respiratory Distress Additional comments: trach tube, no abnormal growth in tubing - Cardiovascular Exam Cardiovascular Exam: REGULAR RHYTHM, +S1 - GI/Abdominal Exam GI & Abdominal Exam: Soft. absent: Distended, Firm, Guarding, Rigid, Tenderness - Extremities Exam Extremities Exam: absent: Calf Tenderness, Pedal Edema Additional comments: SCDs and pressure ulcer boots in place. - Neurological Exam Neurological Exam: Altered (Patient is non-verbal from anoxic brain injury sustained on 05/2015.) - Skin Skin Exam: Dry Assessment and Plan - Assessment and Plan (Free Text) Plan: (1) Anoxic encephalopathy Assessment & Plan: * s/p cardiac arrest in 05/2015 * no acute changes in mental status. * Pt has non spontaneous movements. * patient is currently on 40cc/hr on tube feedings * via PEG * Aspirin 81mg daily * Plavix 75 mg daily * Keppra 500mg bid Status: Chronic (2) Acute Respiratory failure Assessment & Plan: * Trach in place, continue daily monitoring for secretions. No change in management at this time. * 11/16 Discussed with nurse, Tonie Fuentes, secretions have been less and less. * Continue with aggressive suctioning multiple times a day per respiratory therapist if secretions are thickened * Scopolamine 1 patch TD Q3D JOO * Duoneb 3ml INH RQ6 * Acetylcysteine 4ml INH RQ6 * Most recent chest xray: * 09/28/17: no active disease. No significant interval change compared to. Status: Chronic (3) History of Recurrent UTIs Assessment & Plan: * ID consult: Dr. Armstrong --> help appreciated * Patient is afebrile, no apparent leukocytosis * Patient is off IV abx since 08/05/17 * patient has condom catheter and Bladder scan PRN to prevent urinary retention Status: Acute (4) History of Urinary retention Assessment & Plan: * Bethanecol 50mg PEG TID * Tamsulosin 0.4mg PEG QD * Bladder scan up to 3x a week to monitor residual urine * patient has had history of recurrent UTIs Status: Chronic (5) Hypokalemia Assessment & Plan: * Monitor and replete Status: Acute (6) History of Sacral ulcer Assessment & Plan: * Healed * Cont with offloading/cushioning/turning * Continue frequent turning, protective ointment and skin checks. Status: Resolved (7) History of coronary artery disease Assessment & Plan: * s/p cardiac stents on 06/13/15 * Cont ASA 81mg via PEG daily * Cont Coreg 3.125mg PEG BID * Cont Plavix 75 mg PEG daily * Rosuvastatin 2.5mg PO HS Status: Acute (8) History of Seizures Assessment & Plan: * Continue Keppra 500mg PEG BID for seizure prophylaxis * Monitor for activity Status: Chronic (9) Lower extremity edema Assessment & Plan: * Improved * SCDs in place * Pressure ulcer boots on b/l * Continue to monitor Status: Chronic (10) Prophylactic measure Assessment & Plan: * Pepcid 20 mg PEG BID * Lovenox 40mg SC daily * SCDs and offloading boots * Saccharomyces 250mg PEG QD * continue to turn and reposition q2hrs * Continue to monitor medication administrations and clinical presentation weekly labs. * vasoline ointment applied to feet prn to prevent hyperkeratos * Please hold feeding from 10pm-6am, placed into nursing communication * Vitamin A & D for lips Disposition: patient has prolonged hospitalization to multiple co-morbidities. per case management 10/08: unable to place patient, pending second opinion by independent examiner. <Jeison Moore - Last Filed: 12/12/17 17:13> Objective - Vital Signs/Intake and Output Vital Signs (last 24 hours): Temp Pulse Resp BP Pulse Ox 97.9 F 68 20 109/75 97 12/12/17 00:00 12/12/17 00:00 12/12/17 00:00 12/12/17 00:00 12/12/17 00:00 Intake and Output: 12/12/17 12/12/17 06:59 18:59 Intake Total 720 1050 Output Total 300 400 Balance 420 650 - Medications Medications: Current Medications Acetylcysteine (Acetylcysteine 20%) 4 ml INH RQ6 [facility] Last Admin: 12/12/17 13:23 Dose: 4 ml Albuterol/Ipratropium (Duoneb 3 Mg/0.5 Mg (3 Ml) Ud) 3 ml INH RQ6 [facility] Last Admin: 12/12/17 13:23 Dose: 3 ml Aspirin (Aspirin Chewable) 81 mg PEG DAILY [facility] Last Admin: 12/12/17 10:53 Dose: 81 mg Bethanechol Chloride (Urecholine) 50 mg PO TID [facility] Last Admin: 12/12/17 13:14 Dose: 50 mg Carvedilol (Coreg) 3.125 mg PEG BID [facility] Last Admin: 12/12/17 10:53 Dose: 3.125 mg Clopidogrel Bisulfate (Plavix) 75 mg PEG DAILY [facility] Last Admin: 12/12/17 10:53 Dose: 75 mg Enoxaparin Sodium (Lovenox) 40 mg SC DAILY [facility] Last Admin: 12/12/17 10:54 Dose: 40 mg Famotidine (Pepcid) 20 mg PEG DAILY [facility] Last Admin: 12/12/17 10:53 Dose: 20 mg Finasteride (Proscar) 5 mg PEG DAILY [facility] Last Admin: 12/12/17 10:54 Dose: 5 mg Levetiracetam (Keppra) 500 mg PEG BID [facility] Last Admin: 12/12/17 10:54 Dose: 500 mg Rosuvastatin Calcium (Crestor) 2.5 mg PO HS [facility] Last Admin: 12/11/17 21:34 Dose: 2.5 mg Saccharomyces Boulardii (Florastor) 250 mg PEG DAILY [facility] Last Admin: 12/12/17 10:53 Dose: 250 mg Scopolamine (Transderm-Scop) 1 patch TD Q3D [facility] Last Admin: 12/11/17 11:52 Dose: 1 patch Tamsulosin HCl (Flomax) 0.4 mg PEG DAILY [facility] Last Admin: 12/12/17 10:53 Dose: 0.4 mg Vitamin A (Vitamin A & D Oint Ud Foilpak) 0.5 ea TOP Q4 PRN PRN Reason: Dry skin Last Admin: 12/11/17 18:17 Dose: 0.5 ea - Labs Labs: 12/07/17 08:27 12/07/17 08:27 PT 10.6 SECONDS (9.7-12.2) 11/24/15 14:10 INR 1.0 11/24/15 14:10 APTT 25 SECONDS (21-34) 11/24/15 14:10 Attending/Attestation - Attestation I have personally seen and examined this patient.: No I have fully participated in the care of the patient.: Yes I have reviewed all pertinent clinical information, including history, physical exam and plan: Yes
[2017-12-06] MEDS: Saccharomyces Boulardi 250 mg Cap PEG SCH (11:11)
[2017-12-06] MEDS: Enoxaparin 40 mg Syringe SC SCH (11:15)
[2017-12-06] MEDS: levETIRAcetam 100 mg/ml (5ml) Oral Syringe PEG SCH ×2 (11:15→17:44)
[2017-12-06] MEDS: Rosuvastatin Calcium 2.5 mg Tab PO SCH (21:17)
[2017-12-07] MEDS: Acetylcysteine 20% Inhal Soln (4ml) INH SCH ×4 (01:35→20:01)
[2017-12-07] MEDS: Albuterol-Ipratrop 3 mg / 0.5 (3 ml) UD INH SCH ×4 (01:35→20:01)
--- NOTE | 2017-12-07 08:15 | CP.PCM.PN ---
<AlexFrancis S - Last Filed: 12/07/17 17:59> Subjective - Date & Time of Evaluation Date of Evaluation: 12/07/17 Time of Evaluation: 09:10 - Subjective Subjective: Medicine progress note for Dr. Moore Patient seen and examined at bedside. ROS unable to ascertain due to anoxic brain injury. No acute events overnight per nursing staff. Objective - Vital Signs/Intake and Output Vital Signs (last 24 hours): Temp Pulse Resp BP Pulse Ox 98 F 72 20 100/65 100 12/07/17 08:03 12/07/17 08:03 12/07/17 08:03 12/07/17 08:03 12/07/17 08:03 Intake and Output: 12/07/17 12/07/17 06:59 18:59 Intake Total 1100 Output Total 800 Balance 300 - Medications Medications: Current Medications Acetylcysteine (Acetylcysteine 20%) 4 ml INH RQ6 [facility] Last Admin: 12/07/17 07:26 Dose: 4 ml Albuterol/Ipratropium (Duoneb 3 Mg/0.5 Mg (3 Ml) Ud) 3 ml INH RQ6 [facility] Last Admin: 12/07/17 07:26 Dose: 3 ml Aspirin (Aspirin Chewable) 81 mg PEG DAILY [facility] Last Admin: 12/06/17 11:11 Dose: 81 mg Bethanechol Chloride (Urecholine) 50 mg PO TID [facility] Last Admin: 12/06/17 17:44 Dose: 50 mg Carvedilol (Coreg) 3.125 mg PEG BID [facility] Last Admin: 12/06/17 17:44 Dose: 3.125 mg Clopidogrel Bisulfate (Plavix) 75 mg PEG DAILY [facility] Last Admin: 12/06/17 11:14 Dose: 75 mg Enoxaparin Sodium (Lovenox) 40 mg SC DAILY [facility] Last Admin: 12/06/17 11:15 Dose: 40 mg Famotidine (Pepcid) 20 mg PEG DAILY [facility] Last Admin: 12/06/17 11:12 Dose: 20 mg Finasteride (Proscar) 5 mg PEG DAILY [facility] Last Admin: 12/06/17 11:15 Dose: 5 mg Levetiracetam (Keppra) 500 mg PEG BID [facility] Last Admin: 12/06/17 17:44 Dose: 500 mg Rosuvastatin Calcium (Crestor) 2.5 mg PO HS [facility] Last Admin: 12/06/17 21:17 Dose: 2.5 mg Saccharomyces Boulardii (Florastor) 250 mg PEG DAILY [facility] Last Admin: 12/06/17 11:11 Dose: 250 mg Scopolamine (Transderm-Scop) 1 patch TD Q3D [facility] Last Admin: 12/05/17 10:35 Dose: 1 patch Tamsulosin HCl (Flomax) 0.4 mg PEG DAILY [facility] Last Admin: 12/06/17 11:12 Dose: 0.4 mg Vitamin A (Vitamin A & D Oint Ud Foilpak) 0.5 ea TOP Q4 PRN PRN Reason: Dry skin Last Admin: 11/29/17 14:37 Dose: 0.5 ea - Labs Labs: 11/30/17 14:53 11/30/17 11:50 PT 10.6 SECONDS (9.7-12.2) 11/24/15 14:10 INR 1.0 11/24/15 14:10 APTT 25 SECONDS (21-34) 11/24/15 14:10 - Constitutional Appears: No Acute Distress - Head Exam Head Exam: ATRAUMATIC, NORMOCEPHALIC - Eye Exam Eye Exam: Normal appearance - ENT Exam ENT Exam: Mucous Membranes Moist - Neck Exam Additional comments: Tracheostomy in place - Respiratory Exam Respiratory Exam: Rhonchi. absent: Rales, Wheezes, Respiratory Distress Additional comments: No abnormal growth in trach tube - Cardiovascular Exam Cardiovascular Exam: REGULAR RHYTHM, +S1, +S2 - GI/Abdominal Exam GI & Abdominal Exam: Soft. absent: Distended, Tenderness - Extremities Exam Extremities Exam: absent: Pedal Edema Additional comments: SCDs and pressure ulcer boots in place - Neurological Exam Neurological Exam: Altered (Patient is non-verbal from anoxic brain injury sustained on 05/2015) - Skin Skin Exam: Dry Assessment and Plan - Assessment and Plan (Free Text) Plan: (1) Anoxic encephalopathy Assessment & Plan: * s/p cardiac arrest in 05/2015 * no acute changes in mental status. * Pt has non spontaneous movements. * patient is currently on 40cc/hr on tube feedings * via PEG * Aspirin 81mg daily * Plavix 75 mg daily * Keppra 500mg bid Status: Chronic (2) Acute Respiratory failure Assessment & Plan: * Trach in place, continue daily monitoring for secretions. No change in management at this time. * 11/16 Discussed with nurse, Tonie Fuentes, secretions have been less and less. * Continue with aggressive suctioning multiple times a day per respiratory therapist if secretions are thickened * Scopolamine 1 patch TD Q3D JOO * Duoneb 3ml INH RQ6 * Acetylcysteine 4ml INH RQ6 * Most recent chest xray: * 09/28/17: no active disease. No significant interval change compared to. Status: Chronic (3) History of Recurrent UTIs Assessment & Plan: * ID consult: Dr. Armstrong --> help appreciated * Patient is afebrile, no apparent leukocytosis * Patient is off IV abx since 08/05/17 * patient has condom catheter and Bladder scan PRN to prevent urinary retention Status: Acute (4) History of Urinary retention Assessment & Plan: * Bethanecol 50mg PEG TID * Tamsulosin 0.4mg PEG QD * Bladder scan up to 3x a week to monitor residual urine * patient has had history of recurrent UTIs Status: Chronic (5) Hypokalemia Assessment & Plan: * Monitor and replete Status: Acute (6) History of Sacral ulcer Assessment & Plan: * Healed * Cont with offloading/cushioning/turning * Continue frequent turning, protective ointment and skin checks. Status: Resolved (7) History of coronary artery disease Assessment & Plan: * s/p cardiac stents on 06/13/15 * Cont ASA 81mg via PEG daily * Cont Coreg 3.125mg PEG BID * Cont Plavix 75 mg PEG daily * Rosuvastatin 2.5mg PO HS Status: Acute (8) History of Seizures Assessment & Plan: * Continue Keppra 500mg PEG BID for seizure prophylaxis * Monitor for activity Status: Chronic (9) Lower extremity edema Assessment & Plan: * Improved * SCDs in place * Pressure ulcer boots on b/l * Continue to monitor Status: Chronic (10) Prophylactic measure Assessment & Plan: * Pepcid 20 mg PEG BID * Lovenox 40mg SC daily * SCDs and offloading boots * Saccharomyces 250mg PEG QD * continue to turn and reposition q2hrs * Continue to monitor medication administrations and clinical presentation weekly labs. * vasoline ointment applied to feet prn to prevent hyperkeratos * Please hold feeding from 10pm-6am, placed into nursing communication * Vitamin A & D for lips Disposition: patient has prolonged hospitalization to multiple co-morbidities. per case management 10/08: unable to place patient, pending second opinion by independent examiner. Case DW Dr. Teresa Johnson PGY-1 <Jeison Moore - Last Filed: 12/12/17 17:13> Objective - Vital Signs/Intake and Output Vital Signs (last 24 hours): Temp Pulse Resp BP Pulse Ox 97.9 F 68 20 109/75 97 12/12/17 00:00 12/12/17 00:00 12/12/17 00:00 12/12/17 00:00 12/12/17 00:00 Intake and Output: 12/12/17 12/12/17 06:59 18:59 Intake Total 720 1050 Output Total 300 400 Balance 420 650 - Medications Medications: Current Medications Acetylcysteine (Acetylcysteine 20%) 4 ml INH RQ6 [facility] Last Admin: 12/12/17 13:23 Dose: 4 ml Albuterol/Ipratropium (Duoneb 3 Mg/0.5 Mg (3 Ml) Ud) 3 ml INH RQ6 [facility] Last Admin: 12/12/17 13:23 Dose: 3 ml Aspirin (Aspirin Chewable) 81 mg PEG DAILY [facility] Last Admin: 12/12/17 10:53 Dose: 81 mg Bethanechol Chloride (Urecholine) 50 mg PO TID [facility] Last Admin: 12/12/17 13:14 Dose: 50 mg Carvedilol (Coreg) 3.125 mg PEG BID [facility] Last Admin: 12/12/17 10:53 Dose: 3.125 mg Clopidogrel Bisulfate (Plavix) 75 mg PEG DAILY [facility] Last Admin: 12/12/17 10:53 Dose: 75 mg Enoxaparin Sodium (Lovenox) 40 mg SC DAILY [facility] Last Admin: 12/12/17 10:54 Dose: 40 mg Famotidine (Pepcid) 20 mg PEG DAILY [facility] Last Admin: 12/12/17 10:53 Dose: 20 mg Finasteride (Proscar) 5 mg PEG DAILY [facility] Last Admin: 12/12/17 10:54 Dose: 5 mg Levetiracetam (Keppra) 500 mg PEG BID [facility] Last Admin: 12/12/17 10:54 Dose: 500 mg Rosuvastatin Calcium (Crestor) 2.5 mg PO HS [facility] Last Admin: 12/11/17 21:34 Dose: 2.5 mg Saccharomyces Boulardii (Florastor) 250 mg PEG DAILY [facility] Last Admin: 12/12/17 10:53 Dose: 250 mg Scopolamine (Transderm-Scop) 1 patch TD Q3D [facility] Last Admin: 12/11/17 11:52 Dose: 1 patch Tamsulosin HCl (Flomax) 0.4 mg PEG DAILY [facility] Last Admin: 12/12/17 10:53 Dose: 0.4 mg Vitamin A (Vitamin A & D Oint Ud Foilpak) 0.5 ea TOP Q4 PRN PRN Reason: Dry skin Last Admin: 12/11/17 18:17 Dose: 0.5 ea - Labs Labs: 12/07/17 08:27 12/07/17 08:27 PT 10.6 SECONDS (9.7-12.2) 11/24/15 14:10 INR 1.0 11/24/15 14:10 APTT 25 SECONDS (21-34) 11/24/15 14:10 Attending/Attestation - Attestation I have personally seen and examined this patient.: No I have fully participated in the care of the patient.: Yes I have reviewed all pertinent clinical information, including history, physical exam and plan: Yes
[2017-12-07 08:36] LABS: BASO % 0.4 % (0.0-2.0); EOS # 0.3 K/uL (0.0-0.7); EOS % 3.6 % (0.0-4.0); LYMPH # 2.1 K/uL (1.0-4.3); LYMPH % 25.8 % (20.0-40.0); MEAN CORPUSCULAR HEMOGLOBIN 29.2 pg (27.0-31.0); MEAN CORPUSCULAR HGB CONC 33.2 g/dL (33.0-37.0); MEAN PLATELET VOLUME 9.1 fL (7.2-11.7); MONO # 0.6 K/uL (0.0-0.8); MONO % 7.1 % (0.0-10.0); NEUT % 63.1 % (50.0-75.0); NRBC % 0.1 % (0.0-2.0); RBC 4.11 Mil/uL (4.40-5.90); RED CELL DISTRIBUTION WIDTH 14.9 % (11.5-14.5); WHITE BLOOD COUNT 7.9 K/uL (4.8-10.8)
[2017-12-07 09:19] LABS: ALB/GLOB RATIO 0.8 (1.0-2.1); ALBUMIN 3.6 g/dL (3.5-5.0); ALT/SGPT 37 U/L (21-72); AST/SGOT 23 U/L (17-59); BLOOD UREA NITROGEN 9 mg/dL (9-20); CALCIUM 8.1 mg/dl (8.6-10.4); GFR NON-AFRICAN AMERICAN > 60
[2017-12-07] MEDS: levETIRAcetam 100 mg/ml (5ml) Oral Syringe PEG SCH ×2 (11:25→17:44)
[2017-12-07] MEDS: Saccharomyces Boulardi 250 mg Cap PEG SCH (11:28)
[2017-12-07] MEDS: Enoxaparin 40 mg Syringe SC SCH (11:29)
[2017-12-07] MEDS: Rosuvastatin Calcium 2.5 mg Tab PO SCH (22:32)
[2017-12-08] MEDS: Albuterol-Ipratrop 3 mg / 0.5 (3 ml) UD INH SCH ×4 (02:14→20:52)
[2017-12-08] MEDS: Acetylcysteine 20% Inhal Soln (4ml) INH SCH ×4 (02:14→20:52)
--- NOTE | 2017-12-08 07:28 | CP.PCM.PN ---
<IsisPancho ashtona S - Last Filed: 12/08/17 13:12> Subjective - Date & Time of Evaluation Date of Evaluation: 12/08/17 Time of Evaluation: 07:40 - Subjective Subjective: Medicine progress note for Dr. Moore Patient seen and examined at bedside. ROS unable to ascertain due to anoxic brain injury. No acute events overnight per nursing staff. Objective - Vital Signs/Intake and Output Vital Signs (last 24 hours): Temp Pulse Resp BP Pulse Ox 98.6 F 73 20 111/70 99 12/07/17 23:34 12/07/17 23:34 12/07/17 23:34 12/07/17 23:34 12/07/17 23:34 Intake and Output: 12/08/17 12/08/17 06:59 18:59 Intake Total 1440 Output Total 750 Balance 690 - Medications Medications: Current Medications Acetylcysteine (Acetylcysteine 20%) 4 ml INH RQ6 [facility] Last Admin: 12/08/17 02:14 Dose: 4 ml Albuterol/Ipratropium (Duoneb 3 Mg/0.5 Mg (3 Ml) Ud) 3 ml INH RQ6 [facility] Last Admin: 12/08/17 02:14 Dose: 3 ml Aspirin (Aspirin Chewable) 81 mg PEG DAILY [facility] Last Admin: 12/07/17 11:29 Dose: 81 mg Bethanechol Chloride (Urecholine) 50 mg PO TID [facility] Last Admin: 12/07/17 17:44 Dose: 50 mg Carvedilol (Coreg) 3.125 mg PEG BID [facility] Last Admin: 12/07/17 17:44 Dose: 3.125 mg Clopidogrel Bisulfate (Plavix) 75 mg PEG DAILY [facility] Last Admin: 12/07/17 11:29 Dose: 75 mg Enoxaparin Sodium (Lovenox) 40 mg SC DAILY [facility] Last Admin: 12/07/17 11:29 Dose: 40 mg Famotidine (Pepcid) 20 mg PEG DAILY [facility] Last Admin: 12/07/17 11:28 Dose: 20 mg Finasteride (Proscar) 5 mg PEG DAILY [facility] Last Admin: 12/07/17 11:25 Dose: 5 mg Levetiracetam (Keppra) 500 mg PEG BID [facility] Last Admin: 12/07/17 17:44 Dose: 500 mg Rosuvastatin Calcium (Crestor) 2.5 mg PO HS [facility] Last Admin: 12/07/17 22:32 Dose: 2.5 mg Saccharomyces Boulardii (Florastor) 250 mg PEG DAILY [facility] Last Admin: 12/07/17 11:28 Dose: 250 mg Scopolamine (Transderm-Scop) 1 patch TD Q3D [facility] Last Admin: 12/05/17 10:35 Dose: 1 patch Tamsulosin HCl (Flomax) 0.4 mg PEG DAILY [facility] Last Admin: 12/07/17 11:28 Dose: 0.4 mg Vitamin A (Vitamin A & D Oint Ud Foilpak) 0.5 ea TOP Q4 PRN PRN Reason: Dry skin Last Admin: 11/29/17 14:37 Dose: 0.5 ea - Labs Labs: 12/07/17 08:27 12/07/17 08:27 PT 10.6 SECONDS (9.7-12.2) 11/24/15 14:10 INR 1.0 11/24/15 14:10 APTT 25 SECONDS (21-34) 11/24/15 14:10 - Constitutional Appears: No Acute Distress - Head Exam Head Exam: ATRAUMATIC, NORMOCEPHALIC - Eye Exam Eye Exam: Normal appearance - ENT Exam ENT Exam: Mucous Membranes Moist - Neck Exam Additional comments: Tracheostomy in place - Respiratory Exam Respiratory Exam: Rhonchi. absent: Rales, Wheezes Additional comments: No abnormal growth in trach tube - Cardiovascular Exam Cardiovascular Exam: REGULAR RHYTHM, +S1, +S2 - GI/Abdominal Exam GI & Abdominal Exam: Soft. absent: Distended, Tenderness - Extremities Exam Extremities Exam: absent: Pedal Edema Additional comments: SCDs and pressure ulcer boots in place - Neurological Exam Neurological Exam: Altered (Patient is non-verbal from anoxic brain injury sustained on 05/2015) - Skin Skin Exam: Dry Assessment and Plan - Assessment and Plan (Free Text) Plan: (1) Anoxic encephalopathy Assessment & Plan: * s/p cardiac arrest in 05/2015 * no acute changes in mental status. * Pt has non spontaneous movements. * patient is currently on 40cc/hr on tube feedings * via PEG * Aspirin 81mg daily * Plavix 75 mg daily * Keppra 500mg bid Status: Chronic (2) Acute Respiratory failure Assessment & Plan: * Trach in place, continue daily monitoring for secretions. No change in management at this time. * 11/16 Discussed with nurse, Tonie Fuentes, secretions have been less and less. * Continue with aggressive suctioning multiple times a day per respiratory therapist if secretions are thickened * Scopolamine 1 patch TD Q3D JOO * Duoneb 3ml INH RQ6 * Acetylcysteine 4ml INH RQ6 * Most recent chest xray: * 09/28/17: no active disease. No significant interval change compared to. Status: Chronic (3) History of Recurrent UTIs Assessment & Plan: * ID consult: Dr. Armstrong --> help appreciated * Patient is afebrile, no apparent leukocytosis * Patient is off IV abx since 08/05/17 * patient has condom catheter and Bladder scan PRN to prevent urinary retention Status: Acute (4) History of Urinary retention Assessment & Plan: * Bethanecol 50mg PEG TID * Tamsulosin 0.4mg PEG QD * Bladder scan up to 3x a week to monitor residual urine * patient has had history of recurrent UTIs Status: Chronic (5) Hypokalemia Assessment & Plan: * Monitor and replete Status: Acute (6) History of Sacral ulcer Assessment & Plan: * Healed * Cont with offloading/cushioning/turning * Continue frequent turning, protective ointment and skin checks. Status: Resolved (7) History of coronary artery disease Assessment & Plan: * s/p cardiac stents on 06/13/15 * Cont ASA 81mg via PEG daily * Cont Coreg 3.125mg PEG BID * Cont Plavix 75 mg PEG daily * Rosuvastatin 2.5mg PO HS Status: Acute (8) History of Seizures Assessment & Plan: * Continue Keppra 500mg PEG BID for seizure prophylaxis * Monitor for activity Status: Chronic (9) Lower extremity edema Assessment & Plan: * Improved * SCDs in place * Pressure ulcer boots on b/l * Continue to monitor Status: Chronic (10) Prophylactic measure Assessment & Plan: * Pepcid 20 mg PEG BID * Lovenox 40mg SC daily * SCDs and offloading boots * Saccharomyces 250mg PEG QD * continue to turn and reposition q2hrs * Continue to monitor medication administrations and clinical presentation weekly labs. * vasoline ointment applied to feet prn to prevent hyperkeratos * Please hold feeding from 10pm-6am, placed into nursing communication * Vitamin A & D for lips Disposition: patient has prolonged hospitalization to multiple co-morbidities. per case management 10/08: unable to place patient, pending second opinion by independent examiner. Case DW Dr. Teresa Johnson PGY-1 <Jeison Moore - Last Filed: 12/12/17 17:13> Objective - Vital Signs/Intake and Output Vital Signs (last 24 hours): Temp Pulse Resp BP Pulse Ox 97.9 F 68 20 109/75 97 12/12/17 00:00 12/12/17 00:00 12/12/17 00:00 12/12/17 00:00 12/12/17 00:00 Intake and Output: 12/12/17 12/12/17 06:59 18:59 Intake Total 720 1050 Output Total 300 400 Balance 420 650 - Medications Medications: Current Medications Acetylcysteine (Acetylcysteine 20%) 4 ml INH RQ6 [facility] Last Admin: 12/12/17 13:23 Dose: 4 ml Albuterol/Ipratropium (Duoneb 3 Mg/0.5 Mg (3 Ml) Ud) 3 ml INH RQ6 [facility] Last Admin: 12/12/17 13:23 Dose: 3 ml Aspirin (Aspirin Chewable) 81 mg PEG DAILY [facility] Last Admin: 12/12/17 10:53 Dose: 81 mg Bethanechol Chloride (Urecholine) 50 mg PO TID [facility] Last Admin: 12/12/17 13:14 Dose: 50 mg Carvedilol (Coreg) 3.125 mg PEG BID [facility] Last Admin: 12/12/17 10:53 Dose: 3.125 mg Clopidogrel Bisulfate (Plavix) 75 mg PEG DAILY [facility] Last Admin: 12/12/17 10:53 Dose: 75 mg Enoxaparin Sodium (Lovenox) 40 mg SC DAILY [facility] Last Admin: 12/12/17 10:54 Dose: 40 mg Famotidine (Pepcid) 20 mg PEG DAILY [facility] Last Admin: 12/12/17 10:53 Dose: 20 mg Finasteride (Proscar) 5 mg PEG DAILY [facility] Last Admin: 12/12/17 10:54 Dose: 5 mg Levetiracetam (Keppra) 500 mg PEG BID [facility] Last Admin: 12/12/17 10:54 Dose: 500 mg Rosuvastatin Calcium (Crestor) 2.5 mg PO HS [facility] Last Admin: 12/11/17 21:34 Dose: 2.5 mg Saccharomyces Boulardii (Florastor) 250 mg PEG DAILY [facility] Last Admin: 12/12/17 10:53 Dose: 250 mg Scopolamine (Transderm-Scop) 1 patch TD Q3D [facility] Last Admin: 12/11/17 11:52 Dose: 1 patch Tamsulosin HCl (Flomax) 0.4 mg PEG DAILY [facility] Last Admin: 12/12/17 10:53 Dose: 0.4 mg Vitamin A (Vitamin A & D Oint Ud Foilpak) 0.5 ea TOP Q4 PRN PRN Reason: Dry skin Last Admin: 12/11/17 18:17 Dose: 0.5 ea - Labs Labs: 12/07/17 08:27 12/07/17 08:27 PT 10.6 SECONDS (9.7-12.2) 11/24/15 14:10 INR 1.0 11/24/15 14:10 APTT 25 SECONDS (21-34) 11/24/15 14:10 Attending/Attestation - Attestation I have personally seen and examined this patient.: No I have fully participated in the care of the patient.: Yes I have reviewed all pertinent clinical information, including history, physical exam and plan: Yes
[2017-12-08] MEDS: levETIRAcetam 100 mg/ml (5ml) Oral Syringe PEG SCH ×2 (10:00→18:04)
[2017-12-08] MEDS: Enoxaparin 40 mg Syringe SC SCH (12:50)
[2017-12-08] MEDS: Saccharomyces Boulardi 250 mg Cap PEG SCH (12:51)
[2017-12-08] MEDS: Rosuvastatin Calcium 2.5 mg Tab PO SCH (21:11)
[2017-12-09] MEDS: Albuterol-Ipratrop 3 mg / 0.5 (3 ml) UD INH SCH ×4 (02:57→20:30)
[2017-12-09] MEDS: Acetylcysteine 20% Inhal Soln (4ml) INH SCH ×4 (02:57→20:30)
--- NOTE | 2017-12-09 07:19 | CP.PCM.PN ---
<Francis Johnson - Last Filed: 12/09/17 19:32> Subjective - Date & Time of Evaluation Date of Evaluation: 12/09/17 Time of Evaluation: 09:00 - Subjective Subjective: Medicine progress note for Dr. Moore Patient seen and examined at bedside. ROS unable to ascertain due to anoxic brain injury. There was no events overnight per nursing staff. Objective - Vital Signs/Intake and Output Vital Signs (last 24 hours): Temp Pulse Resp BP Pulse Ox 98.6 F 78 20 104/66 99 12/08/17 23:32 12/08/17 23:32 12/08/17 23:32 12/08/17 23:32 12/08/17 23:32 Intake and Output: 12/09/17 12/09/17 06:59 18:59 Intake Total 1200 Output Total 600 Balance 600 - Medications Medications: Current Medications Acetylcysteine (Acetylcysteine 20%) 4 ml INH RQ6 [facility] Last Admin: 12/09/17 02:57 Dose: 4 ml Albuterol/Ipratropium (Duoneb 3 Mg/0.5 Mg (3 Ml) Ud) 3 ml INH RQ6 [facility] Last Admin: 12/09/17 02:57 Dose: 3 ml Aspirin (Aspirin Chewable) 81 mg PEG DAILY [facility] Last Admin: 12/08/17 12:51 Dose: 81 mg Bethanechol Chloride (Urecholine) 50 mg PO TID [facility] Last Admin: 12/08/17 18:04 Dose: 50 mg Carvedilol (Coreg) 3.125 mg PEG BID [facility] Last Admin: 12/08/17 18:04 Dose: 3.125 mg Clopidogrel Bisulfate (Plavix) 75 mg PEG DAILY [facility] Last Admin: 12/08/17 12:51 Dose: 75 mg Enoxaparin Sodium (Lovenox) 40 mg SC DAILY [facility] Last Admin: 12/08/17 12:50 Dose: 40 mg Famotidine (Pepcid) 20 mg PEG DAILY [facility] Last Admin: 12/08/17 12:51 Dose: 20 mg Finasteride (Proscar) 5 mg PEG DAILY [facility] Last Admin: 12/08/17 12:51 Dose: 5 mg Levetiracetam (Keppra) 500 mg PEG BID [facility] Last Admin: 12/08/17 18:04 Dose: 500 mg Rosuvastatin Calcium (Crestor) 2.5 mg PO HS [facility] Last Admin: 12/08/17 21:11 Dose: 2.5 mg Saccharomyces Boulardii (Florastor) 250 mg PEG DAILY [facility] Last Admin: 12/08/17 12:51 Dose: 250 mg Scopolamine (Transderm-Scop) 1 patch TD Q3D [facility] Last Admin: 12/08/17 13:19 Dose: 1 patch Tamsulosin HCl (Flomax) 0.4 mg PEG DAILY [facility] Last Admin: 12/08/17 12:51 Dose: 0.4 mg Vitamin A (Vitamin A & D Oint Ud Foilpak) 0.5 ea TOP Q4 PRN PRN Reason: Dry skin Last Admin: 11/29/17 14:37 Dose: 0.5 ea - Labs Labs: 12/07/17 08:27 12/07/17 08:27 PT 10.6 SECONDS (9.7-12.2) 11/24/15 14:10 INR 1.0 11/24/15 14:10 APTT 25 SECONDS (21-34) 11/24/15 14:10 - Constitutional Appears: No Acute Distress - Head Exam Head Exam: ATRAUMATIC, NORMOCEPHALIC - Eye Exam Eye Exam: Normal appearance - ENT Exam ENT Exam: Mucous Membranes Moist - Neck Exam Additional comments: Tracheostomy in place - Respiratory Exam Respiratory Exam: Rhonchi. absent: Rales, Wheezes Additional comments: No abnormal growth in trach tube - Cardiovascular Exam Cardiovascular Exam: REGULAR RHYTHM, +S1, +S2 - GI/Abdominal Exam GI & Abdominal Exam: Soft. absent: Distended, Tenderness - Extremities Exam Extremities Exam: absent: Pedal Edema Additional comments: SCDs and pressure ulcer boots in place - Neurological Exam Neurological Exam: Altered (Patient is non-verbal from anoxic brain injury sustained on 05/2015) - Skin Skin Exam: Dry Assessment and Plan - Assessment and Plan (Free Text) Plan: (1) Anoxic encephalopathy Assessment & Plan: * s/p cardiac arrest in 05/2015 * no acute changes in mental status. * Pt has non spontaneous movements. * patient is currently on 40cc/hr on tube feedings * via PEG * Aspirin 81mg daily * Plavix 75 mg daily * Keppra 500mg bid Status: Chronic (2) Acute Respiratory failure Assessment & Plan: * Trach in place, continue daily monitoring for secretions. No change in management at this time. * 11/16 Discussed with nurse, Tonie Fuentes, secretions have been less and less. * Continue with aggressive suctioning multiple times a day per respiratory therapist if secretions are thickened * Scopolamine 1 patch TD Q3D JOO * Duoneb 3ml INH RQ6 * Acetylcysteine 4ml INH RQ6 * Most recent chest xray: * 09/28/17: no active disease. No significant interval change compared to. Status: Chronic (3) History of Recurrent UTIs Assessment & Plan: * ID consult: Dr. Armstrong --> help appreciated * Patient is afebrile, no apparent leukocytosis * Patient is off IV abx since 08/05/17 * patient has condom catheter and Bladder scan PRN to prevent urinary retention Status: Acute (4) History of Urinary retention Assessment & Plan: * Bethanecol 50mg PEG TID * Tamsulosin 0.4mg PEG QD * Bladder scan up to 3x a week to monitor residual urine * patient has had history of recurrent UTIs Status: Chronic (5) Hypokalemia Assessment & Plan: * Monitor and replete Status: Acute (6) History of Sacral ulcer Assessment & Plan: * Healed * Cont with offloading/cushioning/turning * Continue frequent turning, protective ointment and skin checks. Status: Resolved (7) History of coronary artery disease Assessment & Plan: * s/p cardiac stents on 06/13/15 * Cont ASA 81mg via PEG daily * Cont Coreg 3.125mg PEG BID * Cont Plavix 75 mg PEG daily * Rosuvastatin 2.5mg PO HS Status: Acute (8) History of Seizures Assessment & Plan: * Continue Keppra 500mg PEG BID for seizure prophylaxis * Monitor for activity Status: Chronic (9) Lower extremity edema Assessment & Plan: * Improved * SCDs in place * Pressure ulcer boots on b/l * Continue to monitor Status: Chronic (10) Prophylactic measure Assessment & Plan: * Pepcid 20 mg PEG BID * Lovenox 40mg SC daily * SCDs and offloading boots * Saccharomyces 250mg PEG QD * continue to turn and reposition q2hrs * Continue to monitor medication administrations and clinical presentation weekly labs. * vasoline ointment applied to feet prn to prevent hyperkeratos * Please hold feeding from 10pm-6am, placed into nursing communication * Vitamin A & D for lips Disposition: patient has prolonged hospitalization to multiple co-morbidities. per case management 10/08: unable to place patient, pending second opinion by independent examiner. <Jeison Moore - Last Filed: 12/12/17 17:14> Objective - Vital Signs/Intake and Output Vital Signs (last 24 hours): Temp Pulse Resp BP Pulse Ox 97.9 F 68 20 109/75 97 12/12/17 00:00 12/12/17 00:00 12/12/17 00:00 12/12/17 00:00 12/12/17 00:00 Intake and Output: 12/12/17 12/12/17 06:59 18:59 Intake Total 720 1050 Output Total 300 400 Balance 420 650 - Medications Medications: Current Medications Acetylcysteine (Acetylcysteine 20%) 4 ml INH RQ6 [facility] Last Admin: 12/12/17 13:23 Dose: 4 ml Albuterol/Ipratropium (Duoneb 3 Mg/0.5 Mg (3 Ml) Ud) 3 ml INH RQ6 [facility] Last Admin: 12/12/17 13:23 Dose: 3 ml Aspirin (Aspirin Chewable) 81 mg PEG DAILY [facility] Last Admin: 12/12/17 10:53 Dose: 81 mg Bethanechol Chloride (Urecholine) 50 mg PO TID [facility] Last Admin: 12/12/17 13:14 Dose: 50 mg Carvedilol (Coreg) 3.125 mg PEG BID [facility] Last Admin: 12/12/17 10:53 Dose: 3.125 mg Clopidogrel Bisulfate (Plavix) 75 mg PEG DAILY [facility] Last Admin: 12/12/17 10:53 Dose: 75 mg Enoxaparin Sodium (Lovenox) 40 mg SC DAILY [facility] Last Admin: 12/12/17 10:54 Dose: 40 mg Famotidine (Pepcid) 20 mg PEG DAILY [facility] Last Admin: 12/12/17 10:53 Dose: 20 mg Finasteride (Proscar) 5 mg PEG DAILY [facility] Last Admin: 12/12/17 10:54 Dose: 5 mg Levetiracetam (Keppra) 500 mg PEG BID [facility] Last Admin: 12/12/17 10:54 Dose: 500 mg Rosuvastatin Calcium (Crestor) 2.5 mg PO HS [facility] Last Admin: 12/11/17 21:34 Dose: 2.5 mg Saccharomyces Boulardii (Florastor) 250 mg PEG DAILY [facility] Last Admin: 12/12/17 10:53 Dose: 250 mg Scopolamine (Transderm-Scop) 1 patch TD Q3D [facility] Last Admin: 12/11/17 11:52 Dose: 1 patch Tamsulosin HCl (Flomax) 0.4 mg PEG DAILY [facility] Last Admin: 12/12/17 10:53 Dose: 0.4 mg Vitamin A (Vitamin A & D Oint Ud Foilpak) 0.5 ea TOP Q4 PRN PRN Reason: Dry skin Last Admin: 12/11/17 18:17 Dose: 0.5 ea - Labs Labs: 12/07/17 08:27 12/07/17 08:27 PT 10.6 SECONDS (9.7-12.2) 11/24/15 14:10 INR 1.0 11/24/15 14:10 APTT 25 SECONDS (21-34) 11/24/15 14:10 Attending/Attestation - Attestation I have personally seen and examined this patient.: No I have fully participated in the care of the patient.: Yes I have reviewed all pertinent clinical information, including history, physical exam and plan: Yes
[2017-12-09] MEDS: levETIRAcetam 100 mg/ml (5ml) Oral Syringe PEG SCH ×2 (11:57→18:00)
[2017-12-09] MEDS: Saccharomyces Boulardi 250 mg Cap PEG SCH (11:57)
[2017-12-09] MEDS: Enoxaparin 40 mg Syringe SC SCH (12:11)
[2017-12-09] MEDS: Rosuvastatin Calcium 2.5 mg Tab PO SCH (21:36)
[2017-12-10] MEDS: Albuterol-Ipratrop 3 mg / 0.5 (3 ml) UD INH SCH ×4 (02:51→20:19)
[2017-12-10] MEDS: Acetylcysteine 20% Inhal Soln (4ml) INH SCH ×4 (02:51→20:19)
--- NOTE | 2017-12-10 07:30 | CP.PCM.PN ---
<Francis Johnson - Last Filed: 12/10/17 16:06> Subjective - Date & Time of Evaluation Date of Evaluation: 12/10/17 Time of Evaluation: 09:00 - Subjective Subjective: Medicine progress note for Dr. Moore Patient seen and examined at bedside. Cannot obtain ROS due to anoxic brain injury. Objective - Vital Signs/Intake and Output Vital Signs (last 24 hours): Temp Pulse Resp BP Pulse Ox 98.2 F 69 20 135/78 98 12/09/17 23:41 12/09/17 23:41 12/09/17 23:41 12/09/17 23:41 12/09/17 23:41 Intake and Output: 12/10/17 12/10/17 06:59 18:59 Intake Total 1200 Output Total 600 Balance 600 - Medications Medications: Current Medications Acetylcysteine (Acetylcysteine 20%) 4 ml INH RQ6 [facility] Last Admin: 12/10/17 02:51 Dose: 4 ml Albuterol/Ipratropium (Duoneb 3 Mg/0.5 Mg (3 Ml) Ud) 3 ml INH RQ6 [facility] Last Admin: 12/10/17 02:51 Dose: 3 ml Aspirin (Aspirin Chewable) 81 mg PEG DAILY [facility] Last Admin: 12/09/17 11:56 Dose: 81 mg Bethanechol Chloride (Urecholine) 50 mg PO TID [facility] Last Admin: 12/09/17 18:00 Dose: 50 mg Carvedilol (Coreg) 3.125 mg PEG BID [facility] Last Admin: 12/09/17 18:00 Dose: 3.125 mg Clopidogrel Bisulfate (Plavix) 75 mg PEG DAILY [facility] Last Admin: 12/09/17 11:57 Dose: 75 mg Enoxaparin Sodium (Lovenox) 40 mg SC DAILY [facility] Last Admin: 12/09/17 12:11 Dose: 40 mg Famotidine (Pepcid) 20 mg PEG DAILY [facility] Last Admin: 12/09/17 11:56 Dose: 20 mg Finasteride (Proscar) 5 mg PEG DAILY [facility] Last Admin: 12/09/17 11:56 Dose: 5 mg Levetiracetam (Keppra) 500 mg PEG BID [facility] Last Admin: 12/09/17 18:00 Dose: 500 mg Rosuvastatin Calcium (Crestor) 2.5 mg PO HS [facility] Last Admin: 12/09/17 21:36 Dose: 2.5 mg Saccharomyces Boulardii (Florastor) 250 mg PEG DAILY [facility] Last Admin: 12/09/17 11:57 Dose: 250 mg Scopolamine (Transderm-Scop) 1 patch TD Q3D [facility] Last Admin: 12/08/17 13:19 Dose: 1 patch Tamsulosin HCl (Flomax) 0.4 mg PEG DAILY [facility] Last Admin: 12/09/17 11:56 Dose: 0.4 mg Vitamin A (Vitamin A & D Oint Ud Foilpak) 0.5 ea TOP Q4 PRN PRN Reason: Dry skin Last Admin: 11/29/17 14:37 Dose: 0.5 ea - Labs Labs: 12/07/17 08:27 12/07/17 08:27 PT 10.6 SECONDS (9.7-12.2) 11/24/15 14:10 INR 1.0 11/24/15 14:10 APTT 25 SECONDS (21-34) 11/24/15 14:10 - Constitutional Appears: No Acute Distress - Head Exam Head Exam: ATRAUMATIC, NORMOCEPHALIC - Eye Exam Eye Exam: Normal appearance - ENT Exam ENT Exam: Mucous Membranes Moist - Neck Exam Additional comments: Tracheostomy in place - Respiratory Exam Respiratory Exam: Rhonchi. absent: Rales, Wheezes Additional comments: No abnormal growth in trach tube - Cardiovascular Exam Cardiovascular Exam: REGULAR RHYTHM, +S1, +S2 - GI/Abdominal Exam GI & Abdominal Exam: Soft. absent: Distended, Tenderness - Extremities Exam Extremities Exam: absent: Pedal Edema Additional comments: SCDs and pressure ulcer boots in place - Neurological Exam Neurological Exam: Altered (Patient is non-verbal from anoxic brain injury sustained on 05/2015) - Skin Skin Exam: Dry Assessment and Plan - Assessment and Plan (Free Text) Plan: (1) Anoxic encephalopathy Assessment & Plan: * s/p cardiac arrest in 05/2015 * no acute changes in mental status. * Pt has non spontaneous movements. * patient is currently on 40cc/hr on tube feedings * via PEG * Aspirin 81mg daily * Plavix 75 mg daily * Keppra 500mg bid Status: Chronic (2) Acute Respiratory failure Assessment & Plan: * Trach in place, continue daily monitoring for secretions. No change in management at this time. * 11/16 Discussed with nurse, Tonie Fuentes, secretions have been less and less. * Continue with aggressive suctioning multiple times a day per respiratory therapist if secretions are thickened * Scopolamine 1 patch TD Q3D JOO * Duoneb 3ml INH RQ6 * Acetylcysteine 4ml INH RQ6 * Most recent chest xray: * 09/28/17: no active disease. No significant interval change compared to. Status: Chronic (3) History of Recurrent UTIs Assessment & Plan: * ID consult: Dr. Armstrong --> help appreciated * Patient is afebrile, no apparent leukocytosis * Patient is off IV abx since 08/05/17 * patient has condom catheter and Bladder scan PRN to prevent urinary retention Status: Acute (4) History of Urinary retention Assessment & Plan: * Bethanecol 50mg PEG TID * Tamsulosin 0.4mg PEG QD * Bladder scan up to 3x a week to monitor residual urine * patient has had history of recurrent UTIs Status: Chronic (5) Hypokalemia Assessment & Plan: * Monitor and replete Status: Acute (6) History of Sacral ulcer Assessment & Plan: * Healed * Cont with offloading/cushioning/turning * Continue frequent turning, protective ointment and skin checks. Status: Resolved (7) History of coronary artery disease Assessment & Plan: * s/p cardiac stents on 06/13/15 * Cont ASA 81mg via PEG daily * Cont Coreg 3.125mg PEG BID * Cont Plavix 75 mg PEG daily * Rosuvastatin 2.5mg PO HS Status: Acute (8) History of Seizures Assessment & Plan: * Continue Keppra 500mg PEG BID for seizure prophylaxis * Monitor for activity Status: Chronic (9) Lower extremity edema Assessment & Plan: * Improved * SCDs in place * Pressure ulcer boots on b/l * Continue to monitor Status: Chronic (10) Prophylactic measure Assessment & Plan: * Pepcid 20 mg PEG BID * Lovenox 40mg SC daily * SCDs and offloading boots * Saccharomyces 250mg PEG QD * continue to turn and reposition q2hrs * Continue to monitor medication administrations and clinical presentation weekly labs. * vasoline ointment applied to feet prn to prevent hyperkeratos * Please hold feeding from 10pm-6am, placed into nursing communication * Vitamin A & D for lips Disposition: patient has prolonged hospitalization to multiple co-morbidities. per case management 10/08: unable to place patient. No changes at this time. Case DW Dr. Teresa Johnson PGY-1 <Jeison Moore - Last Filed: 12/12/17 17:15> Objective - Vital Signs/Intake and Output Vital Signs (last 24 hours): Temp Pulse Resp BP Pulse Ox 97.9 F 68 20 109/75 97 12/12/17 00:00 12/12/17 00:00 12/12/17 00:00 12/12/17 00:00 12/12/17 00:00 Intake and Output: 12/12/17 12/12/17 06:59 18:59 Intake Total 720 1050 Output Total 300 400 Balance 420 650 - Medications Medications: Current Medications Acetylcysteine (Acetylcysteine 20%) 4 ml INH RQ6 [facility] Last Admin: 12/12/17 13:23 Dose: 4 ml Albuterol/Ipratropium (Duoneb 3 Mg/0.5 Mg (3 Ml) Ud) 3 ml INH RQ6 [facility] Last Admin: 12/12/17 13:23 Dose: 3 ml Aspirin (Aspirin Chewable) 81 mg PEG DAILY [facility] Last Admin: 12/12/17 10:53 Dose: 81 mg Bethanechol Chloride (Urecholine) 50 mg PO TID [facility] Last Admin: 12/12/17 13:14 Dose: 50 mg Carvedilol (Coreg) 3.125 mg PEG BID [facility] Last Admin: 12/12/17 10:53 Dose: 3.125 mg Clopidogrel Bisulfate (Plavix) 75 mg PEG DAILY [facility] Last Admin: 12/12/17 10:53 Dose: 75 mg Enoxaparin Sodium (Lovenox) 40 mg SC DAILY [facility] Last Admin: 12/12/17 10:54 Dose: 40 mg Famotidine (Pepcid) 20 mg PEG DAILY [facility] Last Admin: 12/12/17 10:53 Dose: 20 mg Finasteride (Proscar) 5 mg PEG DAILY [facility] Last Admin: 12/12/17 10:54 Dose: 5 mg Levetiracetam (Keppra) 500 mg PEG BID [facility] Last Admin: 12/12/17 10:54 Dose: 500 mg Rosuvastatin Calcium (Crestor) 2.5 mg PO HS [facility] Last Admin: 12/11/17 21:34 Dose: 2.5 mg Saccharomyces Boulardii (Florastor) 250 mg PEG DAILY [facility] Last Admin: 12/12/17 10:53 Dose: 250 mg Scopolamine (Transderm-Scop) 1 patch TD Q3D [facility] Last Admin: 12/11/17 11:52 Dose: 1 patch Tamsulosin HCl (Flomax) 0.4 mg PEG DAILY [facility] Last Admin: 12/12/17 10:53 Dose: 0.4 mg Vitamin A (Vitamin A & D Oint Ud Foilpak) 0.5 ea TOP Q4 PRN PRN Reason: Dry skin Last Admin: 12/11/17 18:17 Dose: 0.5 ea - Labs Labs: 12/07/17 08:27 12/07/17 08:27 PT 10.6 SECONDS (9.7-12.2) 11/24/15 14:10 INR 1.0 11/24/15 14:10 APTT 25 SECONDS (21-34) 11/24/15 14:10 Attending/Attestation - Attestation I have personally seen and examined this patient.: No I have fully participated in the care of the patient.: Yes I have reviewed all pertinent clinical information, including history, physical exam and plan: Yes
[2017-12-10] MEDS: Saccharomyces Boulardi 250 mg Cap PEG SCH (10:16)
[2017-12-10] MEDS: Enoxaparin 40 mg Syringe SC SCH (10:17)
[2017-12-10] MEDS: levETIRAcetam 100 mg/ml (5ml) Oral Syringe PEG SCH ×2 (10:17→18:23)
[2017-12-10] MEDS: Rosuvastatin Calcium 2.5 mg Tab PO SCH (21:47)
[2017-12-11] MEDS: Albuterol-Ipratrop 3 mg / 0.5 (3 ml) UD INH SCH ×4 (02:08→19:38)
[2017-12-11] MEDS: Acetylcysteine 20% Inhal Soln (4ml) INH SCH ×4 (02:08→19:38)
--- NOTE | 2017-12-11 07:33 | CP.PCM.PN ---
<Francis Johnson - Last Filed: 12/11/17 21:51> Subjective - Date & Time of Evaluation Date of Evaluation: 12/11/17 Time of Evaluation: 09:00 - Subjective Subjective: Medicine progress note for Dr. Moore Patient seen and examined at bedside. Unable to obtain ROS due to anoxic brain injury. No acute events noted. Objective - Vital Signs/Intake and Output Vital Signs (last 24 hours): Temp Pulse Resp BP Pulse Ox 97.9 F 78 20 129/72 98 12/10/17 23:49 12/10/17 23:49 12/10/17 23:49 12/10/17 23:49 12/10/17 23:49 Intake and Output: 12/11/17 12/11/17 06:59 18:59 Intake Total 930 Output Total 600 Balance 330 - Medications Medications: Current Medications Acetylcysteine (Acetylcysteine 20%) 4 ml INH RQ6 [facility] Last Admin: 12/11/17 02:08 Dose: 4 ml Albuterol/Ipratropium (Duoneb 3 Mg/0.5 Mg (3 Ml) Ud) 3 ml INH RQ6 [facility] Last Admin: 12/11/17 02:08 Dose: 3 ml Aspirin (Aspirin Chewable) 81 mg PEG DAILY [facility] Last Admin: 12/10/17 10:16 Dose: 81 mg Bethanechol Chloride (Urecholine) 50 mg PO TID [facility] Last Admin: 12/10/17 18:23 Dose: 50 mg Carvedilol (Coreg) 3.125 mg PEG BID [facility] Last Admin: 12/10/17 18:23 Dose: 3.125 mg Clopidogrel Bisulfate (Plavix) 75 mg PEG DAILY [facility] Last Admin: 12/10/17 10:18 Dose: 75 mg Enoxaparin Sodium (Lovenox) 40 mg SC DAILY [facility] Last Admin: 12/10/17 10:17 Dose: 40 mg Famotidine (Pepcid) 20 mg PEG DAILY [facility] Last Admin: 12/10/17 10:16 Dose: 20 mg Finasteride (Proscar) 5 mg PEG DAILY [facility] Last Admin: 12/10/17 10:17 Dose: 5 mg Levetiracetam (Keppra) 500 mg PEG BID [facility] Last Admin: 12/10/17 18:23 Dose: 500 mg Rosuvastatin Calcium (Crestor) 2.5 mg PO HS [facility] Last Admin: 12/10/17 21:47 Dose: 2.5 mg Saccharomyces Boulardii (Florastor) 250 mg PEG DAILY [facility] Last Admin: 12/10/17 10:16 Dose: 250 mg Scopolamine (Transderm-Scop) 1 patch TD Q3D [facility] Last Admin: 12/08/17 13:19 Dose: 1 patch Tamsulosin HCl (Flomax) 0.4 mg PEG DAILY [facility] Last Admin: 12/10/17 10:16 Dose: 0.4 mg Vitamin A (Vitamin A & D Oint Ud Foilpak) 0.5 ea TOP Q4 PRN PRN Reason: Dry skin Last Admin: 11/29/17 14:37 Dose: 0.5 ea - Labs Labs: 12/07/17 08:27 12/07/17 08:27 PT 10.6 SECONDS (9.7-12.2) 11/24/15 14:10 INR 1.0 11/24/15 14:10 APTT 25 SECONDS (21-34) 11/24/15 14:10 - Additional Findings Additional findings: - Constitutional Appears: No Acute Distress - Head Exam Head Exam: ATRAUMATIC, NORMOCEPHALIC - Eye Exam Eye Exam: Normal appearance - ENT Exam ENT Exam: Mucous Membranes Moist - Neck Exam Additional comments: Tracheostomy in place - Respiratory Exam Respiratory Exam: Rhonchi. absent: Rales, Wheezes Additional comments: No abnormal growth in trach tube - Cardiovascular Exam Cardiovascular Exam: REGULAR RHYTHM, +S1, +S2 - GI/Abdominal Exam GI & Abdominal Exam: Soft. absent: Distended, Tenderness - Extremities Exam Extremities Exam: absent: Pedal Edema Additional comments: SCDs and pressure ulcer boots in place - Neurological Exam Neurological Exam: Altered (Patient is non-verbal from anoxic brain injury sustained on 05/2015) - Skin Skin Exam: Dry Assessment and Plan - Assessment and Plan (Free Text) Plan: (1) Anoxic encephalopathy Assessment & Plan: * s/p cardiac arrest in 05/2015 * no acute changes in mental status. * Pt has non spontaneous movements. * patient is currently on 40cc/hr on tube feedings * via PEG * Aspirin 81mg daily * Plavix 75 mg daily * Keppra 500mg bid Status: Chronic (2) Acute Respiratory failure Assessment & Plan: * Trach in place, continue daily monitoring for secretions. No change in management at this time. * 11/16 Discussed with nurse, Tonie Fuentes, secretions have been less and less. * Continue with aggressive suctioning multiple times a day per respiratory therapist if secretions are thickened * Scopolamine 1 patch TD Q3D JOO * Duoneb 3ml INH RQ6 * Acetylcysteine 4ml INH RQ6 * Most recent chest xray: * 09/28/17: no active disease. No significant interval change compared to. Status: Chronic (3) History of Recurrent UTIs Assessment & Plan: * ID consult: Dr. Armstrong --> help appreciated * Patient is afebrile, no apparent leukocytosis * Patient is off IV abx since 08/05/17 * patient has condom catheter and Bladder scan PRN to prevent urinary retention Status: Acute (4) History of Urinary retention Assessment & Plan: * Bethanecol 50mg PEG TID * Tamsulosin 0.4mg PEG QD * Bladder scan up to 3x a week to monitor residual urine * patient has had history of recurrent UTIs Status: Chronic (5) Hypokalemia Assessment & Plan: * Monitor and replete Status: Acute (6) History of Sacral ulcer Assessment & Plan: * Healed * Cont with offloading/cushioning/turning * Continue frequent turning, protective ointment and skin checks. Status: Resolved (7) History of coronary artery disease Assessment & Plan: * s/p cardiac stents on 06/13/15 * Cont ASA 81mg via PEG daily * Cont Coreg 3.125mg PEG BID * Cont Plavix 75 mg PEG daily * Rosuvastatin 2.5mg PO HS Status: Acute (8) History of Seizures Assessment & Plan: * Continue Keppra 500mg PEG BID for seizure prophylaxis * Monitor for activity Status: Chronic (9) Lower extremity edema Assessment & Plan: * Improved * SCDs in place * Pressure ulcer boots on b/l * Continue to monitor Status: Chronic (10) Prophylactic measure Assessment & Plan: * Pepcid 20 mg PEG BID * Lovenox 40mg SC daily * SCDs and offloading boots * Saccharomyces 250mg PEG QD * continue to turn and reposition q2hrs * Continue to monitor medication administrations and clinical presentation weekly labs. * vasoline ointment applied to feet prn to prevent hyperkeratos * Please hold feeding from 10pm-6am, placed into nursing communication * Vitamin A & D for lips Disposition: patient has prolonged hospitalization to multiple co-morbidities. per case management 10/08: unable to place patient. No changes at this time. Case DW Dr. Teresa Johnson PGY-1 <Jeison Moore - Last Filed: 12/12/17 17:12> Objective - Vital Signs/Intake and Output Vital Signs (last 24 hours): Temp Pulse Resp BP Pulse Ox 97.9 F 68 20 109/75 97 12/12/17 00:00 12/12/17 00:00 12/12/17 00:00 12/12/17 00:00 12/12/17 00:00 Intake and Output: 12/12/17 12/12/17 06:59 18:59 Intake Total 720 1050 Output Total 300 400 Balance 420 650 - Medications Medications: Current Medications Acetylcysteine (Acetylcysteine 20%) 4 ml INH RQ6 [facility] Last Admin: 12/12/17 13:23 Dose: 4 ml Albuterol/Ipratropium (Duoneb 3 Mg/0.5 Mg (3 Ml) Ud) 3 ml INH RQ6 [facility] Last Admin: 12/12/17 13:23 Dose: 3 ml Aspirin (Aspirin Chewable) 81 mg PEG DAILY [facility] Last Admin: 12/12/17 10:53 Dose: 81 mg Bethanechol Chloride (Urecholine) 50 mg PO TID [facility] Last Admin: 12/12/17 13:14 Dose: 50 mg Carvedilol (Coreg) 3.125 mg PEG BID [facility] Last Admin: 12/12/17 10:53 Dose: 3.125 mg Clopidogrel Bisulfate (Plavix) 75 mg PEG DAILY [facility] Last Admin: 12/12/17 10:53 Dose: 75 mg Enoxaparin Sodium (Lovenox) 40 mg SC DAILY [facility] Last Admin: 12/12/17 10:54 Dose: 40 mg Famotidine (Pepcid) 20 mg PEG DAILY [facility] Last Admin: 12/12/17 10:53 Dose: 20 mg Finasteride (Proscar) 5 mg PEG DAILY [facility] Last Admin: 12/12/17 10:54 Dose: 5 mg Levetiracetam (Keppra) 500 mg PEG BID [facility] Last Admin: 12/12/17 10:54 Dose: 500 mg Rosuvastatin Calcium (Crestor) 2.5 mg PO HS [facility] Last Admin: 12/11/17 21:34 Dose: 2.5 mg Saccharomyces Boulardii (Florastor) 250 mg PEG DAILY [facility] Last Admin: 12/12/17 10:53 Dose: 250 mg Scopolamine (Transderm-Scop) 1 patch TD Q3D [facility] Last Admin: 12/11/17 11:52 Dose: 1 patch Tamsulosin HCl (Flomax) 0.4 mg PEG DAILY [facility] Last Admin: 12/12/17 10:53 Dose: 0.4 mg Vitamin A (Vitamin A & D Oint Ud Foilpak) 0.5 ea TOP Q4 PRN PRN Reason: Dry skin Last Admin: 12/11/17 18:17 Dose: 0.5 ea - Labs Labs: 12/07/17 08:27 12/07/17 08:27 PT 10.6 SECONDS (9.7-12.2) 11/24/15 14:10 INR 1.0 11/24/15 14:10 APTT 25 SECONDS (21-34) 11/24/15 14:10 Attending/Attestation - Attestation I have personally seen and examined this patient.: Yes I have fully participated in the care of the patient.: Yes I have reviewed all pertinent clinical information, including history, physical exam and plan: Yes Notes (Text): Patient was seen and examined,no changes noted. d/w the residnet continue current treatment I agree with the documentation of the assessment adn the plan
[2017-12-11] MEDS: Saccharomyces Boulardi 250 mg Cap PEG SCH (11:51)
[2017-12-11] MEDS: Enoxaparin 40 mg Syringe SC SCH (11:52)
[2017-12-11] MEDS: levETIRAcetam 100 mg/ml (5ml) Oral Syringe PEG SCH ×2 (11:52→18:18)
[2017-12-11] MEDS: Vitamins A & D Oint UD Foilpak TOP PRN (18:17)
[2017-12-11] MEDS: Rosuvastatin Calcium 2.5 mg Tab PO SCH (21:34)
[2017-12-12] MEDS: Acetylcysteine 20% Inhal Soln (4ml) INH SCH ×4 (02:14→19:39)
[2017-12-12] MEDS: Albuterol-Ipratrop 3 mg / 0.5 (3 ml) UD INH SCH ×4 (02:14→19:39)
--- NOTE | 2017-12-12 06:14 | CP.PCM.PN ---
<Vesna Turpin - Last Filed: 12/12/17 06:11> Subjective - Date & Time of Evaluation Date of Evaluation: 12/12/17 Time of Evaluation: 06:11 - Subjective Subjective: Medicine Progress Note for Dr. Moore Patient was seen and examined at bedside in no acute distress. Review of systems not obtained due to anoxic brain injury. Objective - Vital Signs/Intake and Output Vital Signs (last 24 hours): Temp Pulse Resp BP Pulse Ox 97.9 F 68 20 109/75 97 12/12/17 00:00 12/12/17 00:00 12/12/17 00:00 12/12/17 00:00 12/12/17 00:00 Intake and Output: 12/11/17 12/12/17 18:59 06:59 Intake Total 720 Output Total 300 Balance 420 - Medications Medications: Current Medications Acetylcysteine (Acetylcysteine 20%) 4 ml INH RQ6 [facility] Last Admin: 12/12/17 02:14 Dose: 4 ml Albuterol/Ipratropium (Duoneb 3 Mg/0.5 Mg (3 Ml) Ud) 3 ml INH RQ6 [facility] Last Admin: 12/12/17 02:14 Dose: 3 ml Aspirin (Aspirin Chewable) 81 mg PEG DAILY [facility] Last Admin: 12/11/17 11:51 Dose: 81 mg Bethanechol Chloride (Urecholine) 50 mg PO TID [facility] Last Admin: 12/11/17 18:17 Dose: 50 mg Carvedilol (Coreg) 3.125 mg PEG BID [facility] Last Admin: 12/11/17 18:17 Dose: 3.125 mg Clopidogrel Bisulfate (Plavix) 75 mg PEG DAILY [facility] Last Admin: 12/11/17 11:51 Dose: 75 mg Enoxaparin Sodium (Lovenox) 40 mg SC DAILY [facility] Last Admin: 12/11/17 11:52 Dose: 40 mg Famotidine (Pepcid) 20 mg PEG DAILY [facility] Last Admin: 12/11/17 11:58 Dose: 20 mg Finasteride (Proscar) 5 mg PEG DAILY [facility] Last Admin: 12/11/17 11:52 Dose: 5 mg Levetiracetam (Keppra) 500 mg PEG BID [facility] Last Admin: 12/11/17 18:18 Dose: 500 mg Rosuvastatin Calcium (Crestor) 2.5 mg PO HS [facility] Last Admin: 12/11/17 21:34 Dose: 2.5 mg Saccharomyces Boulardii (Florastor) 250 mg PEG DAILY [facility] Last Admin: 12/11/17 11:51 Dose: 250 mg Scopolamine (Transderm-Scop) 1 patch TD Q3D [facility] Last Admin: 12/11/17 11:52 Dose: 1 patch Tamsulosin HCl (Flomax) 0.4 mg PEG DAILY [facility] Last Admin: 12/11/17 11:51 Dose: 0.4 mg Vitamin A (Vitamin A & D Oint Ud Foilpak) 0.5 ea TOP Q4 PRN PRN Reason: Dry skin Last Admin: 12/11/17 18:17 Dose: 0.5 ea - Labs Labs: 12/07/17 08:27 12/07/17 08:27 PT 10.6 SECONDS (9.7-12.2) 11/24/15 14:10 INR 1.0 11/24/15 14:10 APTT 25 SECONDS (21-34) 11/24/15 14:10 - Additional Findings Additional findings: - Head Exam Head Exam: ATRAUMATIC, NORMAL INSPECTION - Eye Exam Eye Exam: absent: EOMI, Normal appearance - ENT Exam ENT Exam: Mucous Membranes Moist - Neck Exam Additional comments: Tracheostomy in place - Respiratory Exam Respiratory Exam:Rhonchi. absent: Clear to Ausculation Bilateral (excessive mucous production), Respiratory Distress - Cardiovascular Exam Cardiovascular Exam: REGULAR RHYTHM, +S1, +S2 - GI/Abdominal Exam GI & Abdominal Exam: Distended, Soft, Hypoactive Bowel Sounds. absent: Firm, Mass Additional comments: PEG in place - Extremities Exam Extremities Exam: absent: Pedal Edema - Neurological Exam Neurological Exam: Altered. absent: Alert, Awake, Oriented x3 - Psychiatric Exam Psychiatric exam: Altered (Patient is non-verbal from anoxic brain injury sustained on 05/2015). absent: Normal Affect, Normal Mood - Skin Skin Exam: Dry, Intact, Normal Color, Warm. Assessment and Plan (1) Anoxic encephalopathy Status: Chronic (2) Respiratory failure Status: Chronic (3) UTI (urinary tract infection) Status: Resolved (4) Urinary retention Status: Acute (5) Hypokalemia Status: Acute (6) Sacral ulcer Status: Resolved (7) History of coronary artery disease Status: Acute (8) Seizures Status: Acute (9) Lower extremity edema Status: Acute - Assessment and Plan (Free Text) Plan: (1) Anoxic encephalopathy Assessment & Plan: * s/p cardiac arrest in 05/2015 * no acute changes in mental status. * Pt has non spontaneous movements. * patient is currently on 40cc/hr on tube feedings * via PEG * Aspirin 81mg daily * Plavix 75 mg daily * Keppra 500mg bid Status: Chronic (2) Acute Respiratory failure Assessment & Plan: * Trach in place, continue daily monitoring for secretions. No change in management at this time. * Continue with aggressive suctioning multiple times a day per respiratory therapist if secretions are thickened * Scopolamine 1 patch TD Q3D JOO * Duoneb 3ml INH RQ6 * Acetylcysteine 4ml INH RQ6 * Most recent chest xray: * 09/28/17: no active disease. No significant interval change compared to. Status: Chronic (3) History of Recurrent UTIs Assessment & Plan: * ID consult: Dr. Armstrong --> help appreciated * Patient is afebrile, no apparent leukocytosis * Patient is off IV abx since 08/05/17 * patient has condom catheter and Bladder scan PRN to prevent urinary retention Status: Acute (4) History of Urinary retention Assessment & Plan: * Bethanecol 50mg PEG TID * Tamsulosin 0.4mg PEG QD * Bladder scan up to 3x a week to monitor residual urine * patient has had history of recurrent UTIs Status: Chronic (5) Hypokalemia Assessment & Plan: * Monitor and replete Status: Acute (6) History of Sacral ulcer Assessment & Plan: * Healed * Cont with offloading/cushioning/turning * Continue frequent turning, protective ointment and skin checks. Status: Resolved (7) History of coronary artery disease Assessment & Plan: * s/p cardiac stents on 06/13/15 * Cont ASA 81mg via PEG daily * Cont Coreg 3.125mg PEG BID * Cont Plavix 75 mg PEG daily * Rosuvastatin 2.5mg PO HS Status: Acute (8) History of Seizures Assessment & Plan: * Continue Keppra 500mg PEG BID for seizure prophylaxis * Monitor for activity Status: Chronic (9) Lower extremity edema Assessment & Plan: * Improved * SCDs in place * Pressure ulcer boots on b/l * Continue to monitor Status: Chronic (10) Prophylactic measure Assessment & Plan: * Pepcid 20 mg PEG BID * Lovenox 40mg SC daily * SCDs and offloading boots * Saccharomyces 250mg PEG QD * continue to turn and reposition q2hrs * Continue to monitor medication administrations and clinical presentation weekly labs. * vasoline ointment applied to feet prn to prevent hyperkeratos * Please hold feeding from 10pm-6am, placed into nursing communication * Vitamin A & D for lips Disposition: patient has prolonged hospitalization to multiple co-morbidities. per case management 10/08: unable to place patient. No changes at this time. <Jeison Moore - Last Filed: 12/12/17 17:17> Objective - Vital Signs/Intake and Output Vital Signs (last 24 hours): Temp Pulse Resp BP Pulse Ox 97.9 F 68 20 109/75 97 12/12/17 00:00 12/12/17 00:00 12/12/17 00:00 12/12/17 00:00 12/12/17 00:00 Intake and Output: 12/12/17 12/12/17 06:59 18:59 Intake Total 720 1050 Output Total 300 400 Balance 420 650 - Medications Medications: Current Medications Acetylcysteine (Acetylcysteine 20%) 4 ml INH RQ6 [facility] Last Admin: 12/12/17 13:23 Dose: 4 ml Albuterol/Ipratropium (Duoneb 3 Mg/0.5 Mg (3 Ml) Ud) 3 ml INH RQ6 [facility] Last Admin: 12/12/17 13:23 Dose: 3 ml Aspirin (Aspirin Chewable) 81 mg PEG DAILY [facility] Last Admin: 12/12/17 10:53 Dose: 81 mg Bethanechol Chloride (Urecholine) 50 mg PO TID [facility] Last Admin: 12/12/17 13:14 Dose: 50 mg Carvedilol (Coreg) 3.125 mg PEG BID [facility] Last Admin: 12/12/17 10:53 Dose: 3.125 mg Clopidogrel Bisulfate (Plavix) 75 mg PEG DAILY [facility] Last Admin: 12/12/17 10:53 Dose: 75 mg Enoxaparin Sodium (Lovenox) 40 mg SC DAILY [facility] Last Admin: 12/12/17 10:54 Dose: 40 mg Famotidine (Pepcid) 20 mg PEG DAILY [facility] Last Admin: 12/12/17 10:53 Dose: 20 mg Finasteride (Proscar) 5 mg PEG DAILY [facility] Last Admin: 12/12/17 10:54 Dose: 5 mg Levetiracetam (Keppra) 500 mg PEG BID [facility] Last Admin: 12/12/17 10:54 Dose: 500 mg Rosuvastatin Calcium (Crestor) 2.5 mg PO HS [facility] Last Admin: 12/11/17 21:34 Dose: 2.5 mg Saccharomyces Boulardii (Florastor) 250 mg PEG DAILY [facility] Last Admin: 12/12/17 10:53 Dose: 250 mg Scopolamine (Transderm-Scop) 1 patch TD Q3D [facility] Last Admin: 12/11/17 11:52 Dose: 1 patch Tamsulosin HCl (Flomax) 0.4 mg PEG DAILY [facility] Last Admin: 12/12/17 10:53 Dose: 0.4 mg Vitamin A (Vitamin A & D Oint Ud Foilpak) 0.5 ea TOP Q4 PRN PRN Reason: Dry skin Last Admin: 12/11/17 18:17 Dose: 0.5 ea - Labs Labs: 12/07/17 08:27 12/07/17 08:27 PT 10.6 SECONDS (9.7-12.2) 11/24/15 14:10 INR 1.0 11/24/15 14:10 APTT 25 SECONDS (21-34) 11/24/15 14:10 Attending/Attestation - Attestation I have personally seen and examined this patient.: No I have fully participated in the care of the patient.: Yes I have reviewed all pertinent clinical information, including history, physical exam and plan: Yes
[2017-12-12] MEDS: Saccharomyces Boulardi 250 mg Cap PEG SCH (10:53)
[2017-12-12] MEDS: Enoxaparin 40 mg Syringe SC SCH (10:54)
[2017-12-12] MEDS: levETIRAcetam 100 mg/ml (5ml) Oral Syringe PEG SCH ×2 (10:54→17:53)
[2017-12-12] MEDS: Rosuvastatin Calcium 2.5 mg Tab PO SCH (21:34)
[2017-12-13] MEDS: Acetylcysteine 20% Inhal Soln (4ml) INH SCH ×4 (02:59→19:12)
[2017-12-13] MEDS: Albuterol-Ipratrop 3 mg / 0.5 (3 ml) UD INH SCH ×4 (02:59→19:12)
--- NOTE | 2017-12-13 04:05 | CP.PCM.PN ---
<Vesna Turpin - Last Filed: 12/13/17 04:03> Subjective - Date & Time of Evaluation Date of Evaluation: 12/13/17 Time of Evaluation: 04:03 - Subjective Subjective: Medicine Progress Note for Dr. Moore Patient was seen and examined at bedside in no acute distress. No acute events overnight. Review of systems not obtained due to anoxic brain injury. Objective - Vital Signs/Intake and Output Vital Signs (last 24 hours): Temp Pulse Resp BP Pulse Ox 98.9 F 71 20 98/61 L 97 12/12/17 23:49 12/12/17 23:49 12/12/17 23:49 12/12/17 23:49 12/12/17 23:49 Intake and Output: 12/12/17 12/13/17 18:59 06:59 Intake Total 1050 570 Output Total 400 Balance 650 570 - Medications Medications: Current Medications Acetylcysteine (Acetylcysteine 20%) 4 ml INH RQ6 [facility] Last Admin: 12/13/17 02:59 Dose: 4 ml Albuterol/Ipratropium (Duoneb 3 Mg/0.5 Mg (3 Ml) Ud) 3 ml INH RQ6 [facility] Last Admin: 12/13/17 02:59 Dose: 3 ml Aspirin (Aspirin Chewable) 81 mg PEG DAILY [facility] Last Admin: 12/12/17 10:53 Dose: 81 mg Bethanechol Chloride (Urecholine) 50 mg PO TID [facility] Last Admin: 12/12/17 17:53 Dose: 50 mg Carvedilol (Coreg) 3.125 mg PEG BID [facility] Last Admin: 12/12/17 17:53 Dose: 3.125 mg Clopidogrel Bisulfate (Plavix) 75 mg PEG DAILY [facility] Last Admin: 12/12/17 10:53 Dose: 75 mg Enoxaparin Sodium (Lovenox) 40 mg SC DAILY [facility] Last Admin: 12/12/17 10:54 Dose: 40 mg Famotidine (Pepcid) 20 mg PEG DAILY [facility] Last Admin: 12/12/17 10:53 Dose: 20 mg Finasteride (Proscar) 5 mg PEG DAILY [facility] Last Admin: 12/12/17 10:54 Dose: 5 mg Levetiracetam (Keppra) 500 mg PEG BID [facility] Last Admin: 12/12/17 17:53 Dose: 500 mg Rosuvastatin Calcium (Crestor) 2.5 mg PO HS [facility] Last Admin: 12/12/17 21:34 Dose: 2.5 mg Saccharomyces Boulardii (Florastor) 250 mg PEG DAILY [facility] Last Admin: 12/12/17 10:53 Dose: 250 mg Scopolamine (Transderm-Scop) 1 patch TD Q3D [facility] Last Admin: 12/11/17 11:52 Dose: 1 patch Tamsulosin HCl (Flomax) 0.4 mg PEG DAILY [facility] Last Admin: 12/12/17 10:53 Dose: 0.4 mg Vitamin A (Vitamin A & D Oint Ud Foilpak) 0.5 ea TOP Q4 PRN PRN Reason: Dry skin Last Admin: 12/11/17 18:17 Dose: 0.5 ea - Labs Labs: 12/07/17 08:27 12/07/17 08:27 PT 10.6 SECONDS (9.7-12.2) 11/24/15 14:10 INR 1.0 11/24/15 14:10 APTT 25 SECONDS (21-34) 11/24/15 14:10 - Additional Findings Additional findings: - Head Exam Head Exam: ATRAUMATIC, NORMAL INSPECTION - Eye Exam Eye Exam: absent: EOMI, Normal appearance - ENT Exam ENT Exam: Mucous Membranes Moist - Neck Exam Additional comments: Tracheostomy in place - Respiratory Exam Respiratory Exam:Rhonchi. absent: Clear to Ausculation Bilateral (excessive mucous production), Respiratory Distress - Cardiovascular Exam Cardiovascular Exam: REGULAR RHYTHM, +S1, +S2 - GI/Abdominal Exam GI & Abdominal Exam: Distended, Soft, Hypoactive Bowel Sounds. absent: Firm, Mass Additional comments: PEG in place - Extremities Exam Extremities Exam: absent: Pedal Edema - Neurological Exam Neurological Exam: Altered. absent: Alert, Awake, Oriented x3 - Psychiatric Exam Psychiatric exam: Altered (Patient is non-verbal from anoxic brain injury sustained on 05/2015). absent: Normal Affect, Normal Mood - Skin Skin Exam: Dry, Intact, Warm. Assessment and Plan (1) Anoxic encephalopathy Status: Chronic (2) Respiratory failure Status: Chronic (3) UTI (urinary tract infection) Status: Resolved (4) Urinary retention Status: Acute (5) Hypokalemia Status: Acute (6) Sacral ulcer Status: Resolved (7) History of coronary artery disease Status: Acute (8) Seizures Status: Acute (9) Lower extremity edema Status: Acute - Assessment and Plan (Free Text) Plan: (1) Anoxic encephalopathy Assessment & Plan: * s/p cardiac arrest in 05/2015 * no acute changes in mental status. * Pt has non spontaneous movements. * patient is currently on 40cc/hr on tube feedings * via PEG * Aspirin 81mg daily * Plavix 75 mg daily * Keppra 500mg bid Status: Chronic (2) Acute Respiratory failure Assessment & Plan: * Trach in place, continue daily monitoring for secretions. No change in management at this time. * Continue with aggressive suctioning multiple times a day per respiratory therapist if secretions are thickened * Scopolamine 1 patch TD Q3D JOO * Duoneb 3ml INH RQ6 * Acetylcysteine 4ml INH RQ6 * Most recent chest xray: * 09/28/17: no active disease. No significant interval change compared to. Status: Chronic (3) History of Recurrent UTIs Assessment & Plan: * ID consult: Dr. Armstrong --> help appreciated * Patient is afebrile, no apparent leukocytosis * Patient is off IV abx since 08/05/17 * patient has condom catheter and Bladder scan PRN to prevent urinary retention Status: Acute (4) History of Urinary retention Assessment & Plan: * Bethanecol 50mg PEG TID * Tamsulosin 0.4mg PEG QD * Bladder scan up to 3x a week to monitor residual urine * patient has had history of recurrent UTIs Status: Chronic (5) Hypokalemia Assessment & Plan: * Monitor and replete Status: Acute (6) History of Sacral ulcer Assessment & Plan: * Healed * Cont with offloading/cushioning/turning * Continue frequent turning, protective ointment and skin checks. Status: Resolved (7) History of coronary artery disease Assessment & Plan: * s/p cardiac stents on 06/13/15 * Cont ASA 81mg via PEG daily * Cont Coreg 3.125mg PEG BID * Cont Plavix 75 mg PEG daily * Rosuvastatin 2.5mg PO HS Status: Acute (8) History of Seizures Assessment & Plan: * Continue Keppra 500mg PEG BID for seizure prophylaxis * Monitor for activity Status: Chronic (9) Lower extremity edema Assessment & Plan: * Improved * SCDs in place * Pressure ulcer boots on b/l * Continue to monitor Status: Chronic (10) Prophylactic measure Assessment & Plan: * Pepcid 20 mg PEG BID * Lovenox 40mg SC daily * SCDs and offloading boots * Saccharomyces 250mg PEG QD * continue to turn and reposition q2hrs * Continue to monitor medication administrations and clinical presentation weekly labs. * vasoline ointment applied to feet prn to prevent hyperkeratos * Please hold feeding from 10pm-6am, placed into nursing communication * Vitamin A & D for lips Disposition: patient has prolonged hospitalization to multiple co-morbidities. per case management 10/08: unable to place patient. No changes at this time. <Jeison Moore - Last Filed: 12/30/17 19:18> Objective - Vital Signs/Intake and Output Vital Signs (last 24 hours): Temp Pulse Resp BP Pulse Ox 97.5 F L 77 20 99/68 L 98 12/30/17 15:53 12/30/17 15:53 12/30/17 15:53 12/30/17 15:53 12/30/17 15:53 Intake and Output: 12/30/17 12/31/17 18:59 06:59 Intake Total 570 Output Total 500 Balance 70 - Medications Medications: Current Medications Acetylcysteine (Acetylcysteine 20%) 4 ml INH RQ6 [facility] Last Admin: 12/30/17 19:06 Dose: 4 ml Albuterol/Ipratropium (Duoneb 3 Mg/0.5 Mg (3 Ml) Ud) 3 ml INH RQ6 [facility] Last Admin: 12/30/17 19:06 Dose: 3 ml Aspirin (Aspirin Chewable) 81 mg PEG DAILY [facility] Last Admin: 12/30/17 09:36 Dose: 81 mg Bethanechol Chloride (Urecholine) 50 mg PO TID [facility] Last Admin: 12/30/17 17:54 Dose: 50 mg Carvedilol (Coreg) 3.125 mg PEG BID [facility] Last Admin: 12/30/17 17:54 Dose: 3.125 mg Enoxaparin Sodium (Lovenox) 40 mg SC DAILY [facility] Last Admin: 12/30/17 09:37 Dose: 40 mg Famotidine (Pepcid) 20 mg PEG DAILY [facility] Last Admin: 12/30/17 09:38 Dose: 20 mg Finasteride (Proscar) 5 mg PEG DAILY [facility] Last Admin: 12/30/17 09:38 Dose: 5 mg Levetiracetam (Keppra) 500 mg PEG BID [facility] Last Admin: 12/30/17 17:54 Dose: 500 mg Rosuvastatin Calcium (Crestor) 2.5 mg PEG HS [facility] Last Admin: 12/29/17 21:28 Dose: 2.5 mg Saccharomyces Boulardii (Florastor) 250 mg PEG DAILY [facility] Last Admin: 12/30/17 09:37 Dose: 250 mg Scopolamine (Transderm-Scop) 1 patch TD Q3D [facility] Last Admin: 12/29/17 09:44 Dose: 1 patch Tamsulosin HCl (Flomax) 0.4 mg PEG DAILY [facility] Last Admin: 12/30/17 09:36 Dose: 0.4 mg - Labs Labs: 12/28/17 11:37 12/28/17 11:37 PT 10.6 SECONDS (9.7-12.2) 11/24/15 14:10 INR 1.0 11/24/15 14:10 APTT 25 SECONDS (21-34) 11/24/15 14:10 Attending/Attestation - Attestation I have personally seen and examined this patient.: Yes I have fully participated in the care of the patient.: Yes I have reviewed all pertinent clinical information, including history, physical exam and plan: Yes
[2017-12-13] MEDS: levETIRAcetam 100 mg/ml (5ml) Oral Syringe PEG SCH ×2 (10:20→18:09)
[2017-12-13] MEDS: Saccharomyces Boulardi 250 mg Cap PEG SCH (10:20)
[2017-12-13] MEDS: Enoxaparin 40 mg Syringe SC SCH (10:21)
[2017-12-13] MEDS: Rosuvastatin Calcium 2.5 mg Tab PO SCH (21:02)
[2017-12-14] MEDS: Albuterol-Ipratrop 3 mg / 0.5 (3 ml) UD INH SCH ×4 (03:11→19:10)
[2017-12-14] MEDS: Acetylcysteine 20% Inhal Soln (4ml) INH SCH ×4 (03:11→19:10)
[2017-12-14 06:14] LABS: BASO % 0.5 % (0.0-2.0); EOS # 0.4 K/uL (0.0-0.7); EOS % 4.1 % (0.0-4.0); HEMOGLOBIN 11.8 g/dL (12.0-18.0); LYMPH # 1.8 K/uL (1.0-4.3); LYMPH % 20.7 % (20.0-40.0); MEAN CELL VOLUME 88.5 fL (80.0-94.0); MEAN CORPUSCULAR HGB CONC 32.8 g/dL (33.0-37.0); MEAN PLATELET VOLUME 8.9 fL (7.2-11.7); MONO # 0.8 K/uL (0.0-0.8); MONO % 9.1 % (0.0-10.0); NEUT # 5.7 K/uL (1.8-7.0); NEUT % 65.6 % (50.0-75.0); RBC 4.05 Mil/uL (4.40-5.90); RED CELL DISTRIBUTION WIDTH 14.5 % (11.5-14.5); WHITE BLOOD COUNT 8.8 K/uL (4.8-10.8)
[2017-12-14 06:44] LABS: ALB/GLOB RATIO 0.8 (1.0-2.1); ALBUMIN 3.6 g/dL (3.5-5.0); ALT/SGPT 30 U/L (21-72); AST/SGOT 28 U/L (17-59); BLOOD UREA NITROGEN 10 mg/dL (9-20); CALCIUM 8.4 mg/dl (8.6-10.4); GFR NON-AFRICAN AMERICAN > 60
--- NOTE | 2017-12-14 07:18 | CP.PCM.PN ---
Subjective - Date & Time of Evaluation Date of Evaluation: 12/14/17 Time of Evaluation: 07:10 - Subjective Subjective: Medicine progress note for Dr. Chavis Patient seen and examined. Unable to obtain ROS due to anoxic brain injury from 2014. Nothing acute per nursing staff. Objective - Vital Signs/Intake and Output Vital Signs (last 24 hours): Temp Pulse Resp BP Pulse Ox 98.3 F 70 20 125/75 98 12/13/17 23:49 12/13/17 23:49 12/13/17 23:49 12/13/17 23:49 12/13/17 23:49 Intake and Output: 12/14/17 12/14/17 06:59 18:59 Intake Total 900 Output Total 600 Balance 300 - Medications Medications: Current Medications Acetylcysteine (Acetylcysteine 20%) 4 ml INH RQ6 [facility] Last Admin: 12/14/17 03:11 Dose: 4 ml Albuterol/Ipratropium (Duoneb 3 Mg/0.5 Mg (3 Ml) Ud) 3 ml INH RQ6 [facility] Last Admin: 12/14/17 03:11 Dose: 3 ml Aspirin (Aspirin Chewable) 81 mg PEG DAILY [facility] Last Admin: 12/13/17 10:20 Dose: 81 mg Bethanechol Chloride (Urecholine) 50 mg PO TID [facility] Last Admin: 12/13/17 18:09 Dose: 50 mg Carvedilol (Coreg) 3.125 mg PEG BID [facility] Last Admin: 12/13/17 18:09 Dose: 3.125 mg Clopidogrel Bisulfate (Plavix) 75 mg PEG DAILY [facility] Last Admin: 12/13/17 10:20 Dose: 75 mg Enoxaparin Sodium (Lovenox) 40 mg SC DAILY [facility] Last Admin: 12/13/17 10:21 Dose: 40 mg Famotidine (Pepcid) 20 mg PEG DAILY [facility] Last Admin: 12/13/17 10:20 Dose: 20 mg Finasteride (Proscar) 5 mg PEG DAILY [facility] Last Admin: 12/13/17 10:20 Dose: 5 mg Levetiracetam (Keppra) 500 mg PEG BID [facility] Last Admin: 12/13/17 18:09 Dose: 500 mg Rosuvastatin Calcium (Crestor) 2.5 mg PO HS [facility] Last Admin: 12/13/17 21:02 Dose: 2.5 mg Saccharomyces Boulardii (Florastor) 250 mg PEG DAILY [facility] Last Admin: 12/13/17 10:20 Dose: 250 mg Scopolamine (Transderm-Scop) 1 patch TD Q3D [facility] Last Admin: 12/11/17 11:52 Dose: 1 patch Tamsulosin HCl (Flomax) 0.4 mg PEG DAILY [facility] Last Admin: 12/13/17 10:20 Dose: 0.4 mg Vitamin A (Vitamin A & D Oint Ud Foilpak) 0.5 ea TOP Q4 PRN PRN Reason: Dry skin Last Admin: 12/11/17 18:17 Dose: 0.5 ea - Labs Labs: 12/14/17 06:05 12/14/17 06:05 PT 10.6 SECONDS (9.7-12.2) 11/24/15 14:10 INR 1.0 11/24/15 14:10 APTT 25 SECONDS (21-34) 11/24/15 14:10 - Additional Findings Additional findings: - Head Exam Head Exam: ATRAUMATIC, NORMAL INSPECTION - Eye Exam Eye Exam: absent: EOMI, Normal appearance - ENT Exam ENT Exam: Mucous Membranes Moist - Neck Exam Additional comments: Tracheostomy in place - Respiratory Exam Respiratory Exam:Rhonchi. absent: Clear to Ausculation Bilateral (excessive mucous production), Respiratory Distress - Cardiovascular Exam Cardiovascular Exam: REGULAR RHYTHM, +S1, +S2 - GI/Abdominal Exam GI & Abdominal Exam: Distended, Soft, Hypoactive Bowel Sounds. absent: Firm, Mass Additional comments: PEG in place - Extremities Exam Extremities Exam: absent: Pedal Edema - Neurological Exam Neurological Exam: Altered. absent: Alert, Awake, Oriented x3 - Psychiatric Exam Psychiatric exam: Altered (Patient is non-verbal from anoxic brain injury sustained on 05/2015). absent: Normal Affect, Normal Mood - Skin Skin Exam: Dry, Intact, Warm. Assessment and Plan - Assessment and Plan (Free Text) Plan: (1) Anoxic encephalopathy Assessment & Plan: * s/p cardiac arrest in 05/2015 * no acute changes in mental status. * Pt has non spontaneous movements. * patient is currently on 40cc/hr on tube feedings * via PEG * Aspirin 81mg daily * Plavix 75 mg daily * Keppra 500mg bid Status: Chronic (2) Acute Respiratory failure Assessment & Plan: * Trach in place, continue daily monitoring for secretions. No change in management at this time. * Continue with aggressive suctioning multiple times a day per respiratory therapist if secretions are thickened * Scopolamine 1 patch TD Q3D [facility] * Duoneb 3ml INH RQ6 * Acetylcysteine 4ml INH RQ6 * Most recent chest xray: * 09/28/17: no active disease. No significant interval change compared to. Status: Chronic (3) History of Recurrent UTIs Assessment & Plan: * ID consult: Dr. Armstrong --> help appreciated * Patient is afebrile, no apparent leukocytosis * Patient is off IV abx since 08/05/17 * patient has condom catheter and Bladder scan PRN to prevent urinary retention Status: Acute (4) History of Urinary retention Assessment & Plan: * Bethanecol 50mg PEG TID * Tamsulosin 0.4mg PEG QD * Bladder scan up to 3x a week to monitor residual urine * patient has had history of recurrent UTIs Status: Chronic (5) Hypokalemia Assessment & Plan: * Monitor and replete Status: Acute (6) History of Sacral ulcer Assessment & Plan: * Healed * Cont with offloading/cushioning/turning * Continue frequent turning, protective ointment and skin checks. Status: Resolved (7) History of coronary artery disease Assessment & Plan: * s/p cardiac stents on 06/13/15 * Cont ASA 81mg via PEG daily * Cont Coreg 3.125mg PEG BID * Cont Plavix 75 mg PEG daily * Rosuvastatin 2.5mg PO HS Status: Acute (8) History of Seizures Assessment & Plan: * Continue Keppra 500mg PEG BID for seizure prophylaxis * Monitor for activity Status: Chronic (9) Lower extremity edema Assessment & Plan: * Improved * SCDs in place * Pressure ulcer boots on b/l * Continue to monitor Status: Chronic (10) Prophylactic measure Assessment & Plan: * Pepcid 20 mg PEG BID * Lovenox 40mg SC daily * SCDs and offloading boots * Saccharomyces 250mg PEG QD * continue to turn and reposition q2hrs * Continue to monitor medication administrations and clinical presentation weekly labs. * vasoline ointment applied to feet prn to prevent hyperkeratos * Please hold feeding from 10pm-6am, placed into nursing communication * Vitamin A & D for lips Disposition: patient has prolonged hospitalization to multiple co-morbidities. per case management 11/16: unable to place patient. No changes at this time. Case DW Dr. Palmira Johnson PGY-1
[2017-12-14] MEDS: Enoxaparin 40 mg Syringe SC SCH (11:08)
[2017-12-14] MEDS: Saccharomyces Boulardi 250 mg Cap PEG SCH (11:08)
[2017-12-14] MEDS: levETIRAcetam 100 mg/ml (5ml) Oral Syringe PEG SCH ×2 (11:08→17:37)
[2017-12-14] MEDS: Rosuvastatin Calcium 2.5 mg Tab PO SCH (21:30)
[2017-12-15] MEDS: Acetylcysteine 20% Inhal Soln (4ml) INH SCH ×4 (01:58→19:13)
[2017-12-15] MEDS: Albuterol-Ipratrop 3 mg / 0.5 (3 ml) UD INH SCH ×4 (01:58→19:13)
[2017-12-15] MEDS: Enoxaparin 40 mg Syringe SC SCH (11:30)
--- NOTE | 2017-12-15 13:33 | CP.PCM.PN ---
Subjective - Date & Time of Evaluation Date of Evaluation: 12/15/17 Time of Evaluation: 09:10 - Subjective Subjective: Medicine progress note for Dr. Chavis Patient seen and examined. Unable to obtain ROS due to anoxic brain injury from 2014. No events overnight per nursing staff. Medications were renewed. Objective - Vital Signs/Intake and Output Vital Signs (last 24 hours): Temp Pulse Resp BP Pulse Ox 97.6 F 68 20 110/76 99 12/15/17 08:00 12/15/17 08:00 12/15/17 08:00 12/15/17 08:00 12/15/17 08:00 Intake and Output: 12/15/17 12/15/17 06:59 18:59 Intake Total 900 Output Total 350 Balance 550 - Medications Medications: Current Medications Acetylcysteine (Acetylcysteine 20%) 4 ml INH RQ6 [facility] Last Admin: 12/15/17 07:00 Dose: 4 ml Albuterol/Ipratropium (Duoneb 3 Mg/0.5 Mg (3 Ml) Ud) 3 ml INH RQ6 [facility] Last Admin: 12/15/17 07:00 Dose: 3 ml Aspirin (Aspirin Chewable) 81 mg PEG DAILY [facility] Bethanechol Chloride (Urecholine) 50 mg PO TID [facility] Last Admin: 12/15/17 10:29 Dose: 50 mg Carvedilol (Coreg) 3.125 mg PEG BID [facility] Clopidogrel Bisulfate (Plavix) 75 mg PEG DAILY [facility] Last Admin: 12/15/17 11:30 Dose: 75 mg Enoxaparin Sodium (Lovenox) 40 mg SC DAILY [facility] Famotidine (Pepcid) 20 mg PEG DAILY [facility] Finasteride (Proscar) 5 mg PEG DAILY [facility] Levetiracetam (Keppra) 500 mg PEG BID [facility] Rosuvastatin Calcium (Crestor) 2.5 mg PEG HS [facility] Saccharomyces Boulardii (Florastor) 250 mg PEG DAILY [facility] Scopolamine (Transderm-Scop) 1 patch TD Q3D [facility] Tamsulosin HCl (Flomax) 0.4 mg PEG DAILY [facility] Vitamin A (Vitamin A & D Oint Ud Foilpak) 0.5 ea TOP Q4 PRN PRN Reason: Dry skin Last Admin: 12/11/17 18:17 Dose: 0.5 ea - Labs Labs: 12/14/17 06:05 12/14/17 06:05 PT 10.6 SECONDS (9.7-12.2) 11/24/15 14:10 INR 1.0 11/24/15 14:10 APTT 25 SECONDS (21-34) 11/24/15 14:10 - Additional Findings Additional findings: - Head Exam Head Exam: ATRAUMATIC, NORMAL INSPECTION - Eye Exam Eye Exam: absent: EOMI, Normal appearance - ENT Exam ENT Exam: Mucous Membranes Moist - Neck Exam Additional comments: Tracheostomy in place - Respiratory Exam Respiratory Exam:Rhonchi. absent: Clear to Ausculation Bilateral (excessive mucous production), Respiratory Distress - Cardiovascular Exam Cardiovascular Exam: REGULAR RHYTHM, +S1, +S2 - GI/Abdominal Exam GI & Abdominal Exam: Distended, Soft, Hypoactive Bowel Sounds. absent: Firm, Mass Additional comments: PEG in place - Extremities Exam Extremities Exam: absent: Pedal Edema - Neurological Exam Neurological Exam: Altered. absent: Alert, Awake, Oriented x3 - Psychiatric Exam Psychiatric exam: Altered (Patient is non-verbal from anoxic brain injury sustained on 05/2015). absent: Normal Affect, Normal Mood - Skin Skin Exam: Dry, Intact, Warm. Assessment and Plan - Assessment and Plan (Free Text) Plan: (1) Anoxic encephalopathy Assessment & Plan: * s/p cardiac arrest in 05/2015 * no acute changes in mental status. * Pt has non spontaneous movements. * patient is currently on 40cc/hr on tube feedings * via PEG * Aspirin 81mg daily * Plavix 75 mg daily * Keppra 500mg bid Status: Chronic (2) Acute Respiratory failure Assessment & Plan: * Trach in place, continue daily monitoring for secretions. No change in management at this time. * Continue with aggressive suctioning multiple times a day per respiratory therapist if secretions are thickened * Scopolamine 1 patch TD Q3D [facility] * Duoneb 3ml INH RQ6 * Acetylcysteine 4ml INH RQ6 * Most recent chest xray: * 09/28/17: no active disease. No significant interval change compared to. Status: Chronic (3) History of Recurrent UTIs Assessment & Plan: * ID consult: Dr. Armstrong --> help appreciated * Patient is afebrile, no apparent leukocytosis * Patient is off IV abx since 08/05/17 * patient has condom catheter and Bladder scan PRN to prevent urinary retention Status: Acute (4) History of Urinary retention Assessment & Plan: * Bethanecol 50mg PEG TID * Tamsulosin 0.4mg PEG QD * Bladder scan up to 3x a week to monitor residual urine * patient has had history of recurrent UTIs Status: Chronic (5) Hypokalemia Assessment & Plan: * Monitor and replete Status: Acute (6) History of Sacral ulcer Assessment & Plan: * Healed * Cont with offloading/cushioning/turning * Continue frequent turning, protective ointment and skin checks. Status: Resolved (7) History of coronary artery disease Assessment & Plan: * s/p cardiac stents on 06/13/15 * Cont ASA 81mg via PEG daily * Cont Coreg 3.125mg PEG BID * Cont Plavix 75 mg PEG daily * Rosuvastatin 2.5mg PO HS Status: Acute (8) History of Seizures Assessment & Plan: * Continue Keppra 500mg PEG BID for seizure prophylaxis * Monitor for activity Status: Chronic (9) Lower extremity edema Assessment & Plan: * Improved * SCDs in place * Pressure ulcer boots on b/l * Continue to monitor Status: Chronic (10) Prophylactic measure Assessment & Plan: * Pepcid 20 mg PEG BID * Lovenox 40mg SC daily * SCDs and offloading boots * Saccharomyces 250mg PEG QD * continue to turn and reposition q2hrs * Continue to monitor medication administrations and clinical presentation weekly labs. * vasoline ointment applied to feet prn to prevent hyperkeratos * Please hold feeding from 10pm-6am, placed into nursing communication * Vitamin A & D for lips Disposition: patient has prolonged hospitalization to multiple co-morbidities. per case management 10/08: unable to place patient. No changes at this time. Case DW Dr. Palmira Johnson PGY-1
[2017-12-15] MEDS: levETIRAcetam 100 mg/ml (5ml) Oral Syringe PEG SCH ×2 (14:46→18:07)
[2017-12-15] MEDS: Saccharomyces Boulardi 250 mg Cap PEG SCH (14:47)
[2017-12-15] MEDS: Rosuvastatin Calcium 2.5 mg Tab PEG SCH (21:49)
[2017-12-16] MEDS: Acetylcysteine 20% Inhal Soln (4ml) INH SCH ×4 (01:14→19:17)
[2017-12-16] MEDS: Albuterol-Ipratrop 3 mg / 0.5 (3 ml) UD INH SCH ×4 (01:14→19:17)
--- NOTE | 2017-12-16 07:46 | CP.PCM.PN ---
Subjective - Date & Time of Evaluation Date of Evaluation: 12/16/17 Time of Evaluation: 08:10 - Subjective Subjective: Medicine progress note for Dr. Chavis Patient seen and examined. Unable to obtain ROS due to anoxic brain injury from 2014. No events overnight per nursing staff. Objective - Vital Signs/Intake and Output Vital Signs (last 24 hours): Temp Pulse Resp BP Pulse Ox 98.1 F 78 20 104/70 96 12/16/17 00:00 12/16/17 00:00 12/16/17 00:00 12/16/17 00:00 12/16/17 00:00 Intake and Output: 12/16/17 12/16/17 06:59 18:59 Intake Total 900 Output Total 1400 Balance -500 - Medications Medications: Current Medications Acetylcysteine (Acetylcysteine 20%) 4 ml INH RQ6 [facility] Last Admin: 12/16/17 01:14 Dose: 4 ml Albuterol/Ipratropium (Duoneb 3 Mg/0.5 Mg (3 Ml) Ud) 3 ml INH RQ6 [facility] Last Admin: 12/16/17 01:14 Dose: 3 ml Aspirin (Aspirin Chewable) 81 mg PEG DAILY [facility] Last Admin: 12/15/17 14:46 Dose: 81 mg Bethanechol Chloride (Urecholine) 50 mg PO TID [facility] Last Admin: 12/15/17 18:07 Dose: 50 mg Carvedilol (Coreg) 3.125 mg PEG BID [facility] Last Admin: 12/15/17 18:07 Dose: 3.125 mg Clopidogrel Bisulfate (Plavix) 75 mg PEG DAILY [facility] Last Admin: 12/15/17 11:30 Dose: 75 mg Enoxaparin Sodium (Lovenox) 40 mg SC DAILY [facility] Famotidine (Pepcid) 20 mg PEG DAILY [facility] Last Admin: 12/15/17 14:47 Dose: 20 mg Finasteride (Proscar) 5 mg PEG DAILY [facility] Last Admin: 12/15/17 14:47 Dose: 5 mg Levetiracetam (Keppra) 500 mg PEG BID [facility] Last Admin: 12/15/17 18:07 Dose: 500 mg Rosuvastatin Calcium (Crestor) 2.5 mg PEG HS [facility] Last Admin: 12/15/17 21:49 Dose: 2.5 mg Saccharomyces Boulardii (Florastor) 250 mg PEG DAILY [facility] Last Admin: 12/15/17 14:47 Dose: 250 mg Scopolamine (Transderm-Scop) 1 patch TD Q3D [facility] Tamsulosin HCl (Flomax) 0.4 mg PEG DAILY [facility] Last Admin: 12/15/17 14:46 Dose: 0.4 mg Vitamin A (Vitamin A & D Oint Ud Foilpak) 0.5 ea TOP Q4 PRN PRN Reason: Dry skin Last Admin: 12/11/17 18:17 Dose: 0.5 ea - Labs Labs: 12/14/17 06:05 12/14/17 06:05 PT 10.6 SECONDS (9.7-12.2) 11/24/15 14:10 INR 1.0 11/24/15 14:10 APTT 25 SECONDS (21-34) 11/24/15 14:10 - Additional Findings Additional findings: - Head Exam Head Exam: ATRAUMATIC, NORMAL INSPECTION - Eye Exam Eye Exam: absent: EOMI, Normal appearance - ENT Exam ENT Exam: Mucous Membranes Moist - Neck Exam Additional comments: Tracheostomy in place - Respiratory Exam Respiratory Exam:Rhonchi. absent: Clear to Ausculation Bilateral (excessive mucous production), Respiratory Distress - Cardiovascular Exam Cardiovascular Exam: REGULAR RHYTHM, +S1, +S2 - GI/Abdominal Exam GI & Abdominal Exam: Distended, Soft, Hypoactive Bowel Sounds. absent: Firm, Mass Additional comments: PEG in place - Extremities Exam Extremities Exam: absent: Pedal Edema - Neurological Exam Neurological Exam: Altered. absent: Alert, Awake, Oriented x3 - Psychiatric Exam Psychiatric exam: Altered (Patient is non-verbal from anoxic brain injury sustained on 05/2015). absent: Normal Affect, Normal Mood - Skin Skin Exam: Dry, Intact, Warm. Assessment and Plan - Assessment and Plan (Free Text) Plan: (1) Anoxic encephalopathy Assessment & Plan: * s/p cardiac arrest in 05/2015 * no acute changes in mental status. * Pt has non spontaneous movements. * patient is currently on 40cc/hr on tube feedings * via PEG * Aspirin 81mg daily * Plavix 75 mg daily * Keppra 500mg bid Status: Chronic (2) Acute Respiratory failure Assessment & Plan: * Trach in place, continue daily monitoring for secretions. No change in management at this time. * Continue with aggressive suctioning multiple times a day per respiratory therapist if secretions are thickened * Scopolamine 1 patch TD Q3D [facility] * Duoneb 3ml INH RQ6 * Acetylcysteine 4ml INH RQ6 * Most recent chest xray: * 09/28/17: no active disease. No significant interval change compared to. Status: Chronic (3) History of Recurrent UTIs Assessment & Plan: * ID consult: Dr. Armstrong --> help appreciated * Patient is afebrile, no apparent leukocytosis * Patient is off IV abx since 08/05/17 * patient has condom catheter and Bladder scan PRN to prevent urinary retention Status: Acute (4) History of Urinary retention Assessment & Plan: * Bethanecol 50mg PEG TID * Tamsulosin 0.4mg PEG QD * Bladder scan up to 3x a week to monitor residual urine * patient has had history of recurrent UTIs Status: Chronic (5) Hypokalemia Assessment & Plan: * Monitor and replete Status: Acute (6) History of Sacral ulcer Assessment & Plan: * Healed * Cont with offloading/cushioning/turning * Continue frequent turning, protective ointment and skin checks. Status: Resolved (7) History of coronary artery disease Assessment & Plan: * s/p cardiac stents on 06/13/15 * Cont ASA 81mg via PEG daily * Cont Coreg 3.125mg PEG BID * Cont Plavix 75 mg PEG daily * Rosuvastatin 2.5mg PO HS Status: Acute (8) History of Seizures Assessment & Plan: * Continue Keppra 500mg PEG BID for seizure prophylaxis * Monitor for activity Status: Chronic (9) Lower extremity edema Assessment & Plan: * Improved * SCDs in place * Pressure ulcer boots on b/l * Continue to monitor Status: Chronic (10) Prophylactic measure Assessment & Plan: * Pepcid 20 mg PEG BID * Lovenox 40mg SC daily * SCDs and offloading boots * Saccharomyces 250mg PEG QD * continue to turn and reposition q2hrs * Continue to monitor medication administrations and clinical presentation weekly labs. * vasoline ointment applied to feet prn to prevent hyperkeratos * Please hold feeding from 10pm-6am, placed into nursing communication * Vitamin A & D for lips Disposition: patient has prolonged hospitalization to multiple co-morbidities. per case management 10/08: unable to place patient. No changes at this time. Case DW Dr. Palmira Johnson PGY-1
[2017-12-16] MEDS: levETIRAcetam 100 mg/ml (5ml) Oral Syringe PEG SCH ×2 (10:57→18:00)
[2017-12-16] MEDS: Enoxaparin 40 mg Syringe SC SCH (11:28)
[2017-12-16] MEDS: Saccharomyces Boulardi 250 mg Cap PEG SCH (11:28)
[2017-12-16] MEDS: Rosuvastatin Calcium 2.5 mg Tab PEG SCH (21:26)
[2017-12-17] MEDS: Acetylcysteine 20% Inhal Soln (4ml) INH SCH ×4 (01:37→19:28)
[2017-12-17] MEDS: Albuterol-Ipratrop 3 mg / 0.5 (3 ml) UD INH SCH ×4 (01:37→19:28)
--- NOTE | 2017-12-17 06:49 | CP.PCM.PN ---
<Francis Johnson - Last Filed: 12/17/17 13:40> Subjective - Date & Time of Evaluation Date of Evaluation: 12/17/17 Time of Evaluation: 06:50 - Subjective Subjective: Medicine progress note for Dr. Chavis Patient seen and examined. Unable to obtain ROS due to anoxic brain injury from 2014. No events overnight. Objective - Vital Signs/Intake and Output Vital Signs (last 24 hours): Temp Pulse Resp BP Pulse Ox 97.9 F 76 20 116/71 97 12/16/17 23:35 12/16/17 23:35 12/16/17 23:35 12/16/17 23:35 12/16/17 23:35 Intake and Output: 12/16/17 12/17/17 18:59 06:59 Intake Total 860 Output Total 350 Balance 510 - Medications Medications: Current Medications Acetylcysteine (Acetylcysteine 20%) 4 ml INH RQ6 [facility] Last Admin: 12/17/17 01:37 Dose: 4 ml Albuterol/Ipratropium (Duoneb 3 Mg/0.5 Mg (3 Ml) Ud) 3 ml INH RQ6 [facility] Last Admin: 12/17/17 01:37 Dose: 3 ml Aspirin (Aspirin Chewable) 81 mg PEG DAILY [facility] Last Admin: 12/16/17 11:29 Dose: 81 mg Bethanechol Chloride (Urecholine) 50 mg PO TID [facility] Last Admin: 12/16/17 18:00 Dose: 50 mg Carvedilol (Coreg) 3.125 mg PEG BID [facility] Last Admin: 12/16/17 19:08 Dose: Not Given Clopidogrel Bisulfate (Plavix) 75 mg PEG DAILY [facility] Last Admin: 12/16/17 11:29 Dose: 75 mg Enoxaparin Sodium (Lovenox) 40 mg SC DAILY [facility] Last Admin: 12/16/17 11:28 Dose: 40 mg Famotidine (Pepcid) 20 mg PEG DAILY [facility] Last Admin: 12/16/17 11:29 Dose: 20 mg Finasteride (Proscar) 5 mg PEG DAILY [facility] Last Admin: 12/16/17 11:28 Dose: 5 mg Levetiracetam (Keppra) 500 mg PEG BID [facility] Last Admin: 12/16/17 18:00 Dose: 500 mg Rosuvastatin Calcium (Crestor) 2.5 mg PEG HS [facility] Last Admin: 12/16/17 21:26 Dose: 2.5 mg Saccharomyces Boulardii (Florastor) 250 mg PEG DAILY [facility] Last Admin: 12/16/17 11:28 Dose: 250 mg Scopolamine (Transderm-Scop) 1 patch TD Q3D [facility] Tamsulosin HCl (Flomax) 0.4 mg PEG DAILY [facility] Last Admin: 12/16/17 11:29 Dose: 0.4 mg Vitamin A (Vitamin A & D Oint Ud Foilpak) 0.5 ea TOP Q4 PRN PRN Reason: Dry skin Last Admin: 12/11/17 18:17 Dose: 0.5 ea - Labs Labs: 12/14/17 06:05 12/14/17 06:05 PT 10.6 SECONDS (9.7-12.2) 11/24/15 14:10 INR 1.0 11/24/15 14:10 APTT 25 SECONDS (21-34) 11/24/15 14:10 - Additional Findings Additional findings: - Head Exam Head Exam: ATRAUMATIC, NORMAL INSPECTION - Eye Exam Eye Exam: absent: EOMI, Normal appearance - ENT Exam ENT Exam: Mucous Membranes Moist - Neck Exam Additional comments: Tracheostomy in place - Respiratory Exam Respiratory Exam:Rhonchi. absent: Clear to Ausculation Bilateral (excessive mucous production), Respiratory Distress - Cardiovascular Exam Cardiovascular Exam: REGULAR RHYTHM, +S1, +S2 - GI/Abdominal Exam GI & Abdominal Exam: Distended, Soft, Hypoactive Bowel Sounds. absent: Firm, Mass Additional comments: PEG in place - Extremities Exam Extremities Exam: absent: Pedal Edema - Neurological Exam Neurological Exam: Altered. absent: Alert, Awake, Oriented x3 - Psychiatric Exam Psychiatric exam: Altered (Patient is non-verbal from anoxic brain injury sustained on 05/2015). absent: Normal Affect, Normal Mood - Skin Skin Exam: Dry, Intact, Warm. Assessment and Plan - Assessment and Plan (Free Text) Plan: (1) Anoxic encephalopathy Assessment & Plan: * s/p cardiac arrest in 05/2015 * no acute changes in mental status. * Pt has non spontaneous movements. * patient is currently on 40cc/hr on tube feedings * via PEG * Aspirin 81mg daily * Plavix 75 mg daily * Keppra 500mg bid Status: Chronic (2) Acute Respiratory failure Assessment & Plan: * Trach in place, continue daily monitoring for secretions. No change in management at this time. * Continue with aggressive suctioning multiple times a day per respiratory therapist if secretions are thickened * Scopolamine 1 patch TD Q3D [facility] * Duoneb 3ml INH RQ6 * Acetylcysteine 4ml INH RQ6 * Most recent chest xray: * 09/28/17: no active disease. No significant interval change compared to. Status: Chronic (3) History of Recurrent UTIs Assessment & Plan: * ID consult: Dr. Armstrong --> help appreciated * Patient is afebrile, no apparent leukocytosis * Patient is off IV abx since 08/05/17 * patient has condom catheter and Bladder scan PRN to prevent urinary retention Status: Acute (4) History of Urinary retention Assessment & Plan: * Bethanecol 50mg PEG TID * Tamsulosin 0.4mg PEG QD * Bladder scan up to 3x a week to monitor residual urine * patient has had history of recurrent UTIs Status: Chronic (5) Hypokalemia Assessment & Plan: * Monitor and replete Status: Acute (6) History of Sacral ulcer Assessment & Plan: * Healed * Cont with offloading/cushioning/turning * Continue frequent turning, protective ointment and skin checks. Status: Resolved (7) History of coronary artery disease Assessment & Plan: * s/p cardiac stents on 06/13/15 * Cont ASA 81mg via PEG daily * Cont Coreg 3.125mg PEG BID * Cont Plavix 75 mg PEG daily * Rosuvastatin 2.5mg PO HS Status: Acute (8) History of Seizures Assessment & Plan: * Continue Keppra 500mg PEG BID for seizure prophylaxis * Monitor for activity Status: Chronic (9) Lower extremity edema Assessment & Plan: * Improved * SCDs in place * Pressure ulcer boots on b/l * Continue to monitor Status: Chronic (10) Prophylactic measure Assessment & Plan: * Pepcid 20 mg PEG BID * Lovenox 40mg SC daily * SCDs and offloading boots * Saccharomyces 250mg PEG QD * continue to turn and reposition q2hrs * Continue to monitor medication administrations and clinical presentation weekly labs. * vasoline ointment applied to feet prn to prevent hyperkeratos * Please hold feeding from 10pm-6am, placed into nursing communication * Vitamin A & D for lips Disposition: patient has prolonged hospitalization to multiple co-morbidities. per case management 10/08: unable to place patient. No changes presently. Case DW Dr. Palmira Johnson PGY-1 <Amandeep Chavis H - Last Filed: 12/17/17 15:01> Objective - Vital Signs/Intake and Output Vital Signs (last 24 hours): Temp Pulse Resp BP Pulse Ox 98.2 F 70 20 112/70 99 12/17/17 07:48 12/17/17 07:48 12/17/17 07:48 12/17/17 07:48 12/17/17 07:48 Intake and Output: 12/17/17 12/17/17 06:59 18:59 Intake Total 1190 Output Total 450 Balance 740 - Medications Medications: Current Medications Acetylcysteine (Acetylcysteine 20%) 4 ml INH RQ6 [facility] Last Admin: 12/17/17 13:52 Dose: 4 ml Albuterol/Ipratropium (Duoneb 3 Mg/0.5 Mg (3 Ml) Ud) 3 ml INH RQ6 [facility] Last Admin: 12/17/17 13:52 Dose: 3 ml Aspirin (Aspirin Chewable) 81 mg PEG DAILY [facility] Last Admin: 12/17/17 11:19 Dose: 81 mg Bethanechol Chloride (Urecholine) 50 mg PO TID [facility] Last Admin: 12/17/17 14:54 Dose: 50 mg Carvedilol (Coreg) 3.125 mg PEG BID [facility] Last Admin: 12/17/17 11:19 Dose: 3.125 mg Clopidogrel Bisulfate (Plavix) 75 mg PEG DAILY [facility] Last Admin: 12/17/17 11:19 Dose: 75 mg Enoxaparin Sodium (Lovenox) 40 mg SC DAILY [facility] Last Admin: 12/17/17 11:23 Dose: 40 mg Famotidine (Pepcid) 20 mg PEG DAILY [facility] Last Admin: 12/17/17 11:19 Dose: 20 mg Finasteride (Proscar) 5 mg PEG DAILY [facility] Last Admin: 12/17/17 11:20 Dose: 5 mg Levetiracetam (Keppra) 500 mg PEG BID [facility] Last Admin: 12/17/17 11:21 Dose: 500 mg Rosuvastatin Calcium (Crestor) 2.5 mg PEG HS [facility] Last Admin: 12/16/17 21:26 Dose: 2.5 mg Saccharomyces Boulardii (Florastor) 250 mg PEG DAILY [facility] Last Admin: 12/17/17 11:19 Dose: 250 mg Scopolamine (Transderm-Scop) 1 patch TD Q3D [facility] Last Admin: 12/17/17 11:21 Dose: 1 patch Tamsulosin HCl (Flomax) 0.4 mg PEG DAILY [facility] Last Admin: 12/17/17 11:19 Dose: 0.4 mg Vitamin A (Vitamin A & D Oint Ud Foilpak) 0.5 ea TOP Q4 PRN PRN Reason: Dry skin Last Admin: 12/11/17 18:17 Dose: 0.5 ea - Labs Labs: 12/14/17 06:05 12/14/17 06:05 PT 10.6 SECONDS (9.7-12.2) 11/24/15 14:10 INR 1.0 11/24/15 14:10 APTT 25 SECONDS (21-34) 11/24/15 14:10 Assessment and Plan (1) Prophylactic measure Status: Acute (2) Anoxic encephalopathy Status: Chronic (3) STEMI (ST elevation myocardial infarction) Status: Acute (4) Cardiac arrest Status: Acute (5) Seizures Status: Acute (6) Respiratory failure Status: Chronic Attending/Attestation - Attestation I have personally seen and examined this patient.: Yes I have fully participated in the care of the patient.: Yes I have reviewed all pertinent clinical information, including history, physical exam and plan: Yes Notes (Text): 12/17/17 15:01 Medical attending: Patient was seen and examined by me with the medical technologist chief. I reviewed the above note by medical technologist chief and agree. Situation does not change from before. thank you Amandeep Chavis
[2017-12-17] MEDS: Saccharomyces Boulardi 250 mg Cap PEG SCH (11:19)
[2017-12-17] MEDS: levETIRAcetam 100 mg/ml (5ml) Oral Syringe PEG SCH ×2 (11:21→18:48)
[2017-12-17] MEDS: Enoxaparin 40 mg Syringe SC SCH (11:23)
[2017-12-17] MEDS: Rosuvastatin Calcium 2.5 mg Tab PEG SCH (21:52)
[2017-12-18] MEDS: Acetylcysteine 20% Inhal Soln (4ml) INH SCH ×4 (01:23→22:49)
[2017-12-18] MEDS: Albuterol-Ipratrop 3 mg / 0.5 (3 ml) UD INH SCH ×4 (01:23→22:50)
--- NOTE | 2017-12-18 07:05 | CP.PCM.PN ---
Subjective - Date & Time of Evaluation Date of Evaluation: 12/18/17 Time of Evaluation: 07:00 - Subjective Subjective: Medicine progress note for Dr. Chavis Patient seen and examined. Unable to obtain ROS due to anoxic brain injury from 2014. No events overnight. Objective - Vital Signs/Intake and Output Vital Signs (last 24 hours): Temp Pulse Resp BP Pulse Ox 98.3 F 60 20 126/73 100 12/17/17 23:43 12/17/17 23:43 12/17/17 23:43 12/17/17 23:43 12/17/17 23:43 Intake and Output: 12/18/17 12/18/17 06:59 18:59 Intake Total 900 Output Total 650 Balance 250 - Medications Medications: Current Medications Acetylcysteine (Acetylcysteine 20%) 4 ml INH RQ6 [facility] Last Admin: 12/18/17 01:23 Dose: 4 ml Albuterol/Ipratropium (Duoneb 3 Mg/0.5 Mg (3 Ml) Ud) 3 ml INH RQ6 [facility] Last Admin: 12/18/17 01:23 Dose: 3 ml Aspirin (Aspirin Chewable) 81 mg PEG DAILY [facility] Last Admin: 12/17/17 11:19 Dose: 81 mg Bethanechol Chloride (Urecholine) 50 mg PO TID [facility] Last Admin: 12/17/17 18:48 Dose: 50 mg Carvedilol (Coreg) 3.125 mg PEG BID [facility] Last Admin: 12/17/17 18:48 Dose: 3.125 mg Clopidogrel Bisulfate (Plavix) 75 mg PEG DAILY [facility] Last Admin: 12/17/17 11:19 Dose: 75 mg Enoxaparin Sodium (Lovenox) 40 mg SC DAILY [facility] Last Admin: 12/17/17 11:23 Dose: 40 mg Famotidine (Pepcid) 20 mg PEG DAILY [facility] Last Admin: 12/17/17 11:19 Dose: 20 mg Finasteride (Proscar) 5 mg PEG DAILY [facility] Last Admin: 12/17/17 11:20 Dose: 5 mg Levetiracetam (Keppra) 500 mg PEG BID [facility] Last Admin: 12/17/17 18:48 Dose: 500 mg Rosuvastatin Calcium (Crestor) 2.5 mg PEG HS [facility] Last Admin: 12/17/17 21:52 Dose: 2.5 mg Saccharomyces Boulardii (Florastor) 250 mg PEG DAILY [facility] Last Admin: 12/17/17 11:19 Dose: 250 mg Scopolamine (Transderm-Scop) 1 patch TD Q3D [facility] Last Admin: 12/17/17 11:21 Dose: 1 patch Tamsulosin HCl (Flomax) 0.4 mg PEG DAILY [facility] Last Admin: 12/17/17 11:19 Dose: 0.4 mg Vitamin A (Vitamin A & D Oint Ud Foilpak) 0.5 ea TOP Q4 PRN PRN Reason: Dry skin Last Admin: 12/11/17 18:17 Dose: 0.5 ea - Labs Labs: 12/14/17 06:05 12/14/17 06:05 PT 10.6 SECONDS (9.7-12.2) 11/24/15 14:10 INR 1.0 11/24/15 14:10 APTT 25 SECONDS (21-34) 11/24/15 14:10 - Head Exam Head Exam: ATRAUMATIC, NORMAL INSPECTION - ENT Exam ENT Exam: Mucous Membranes Moist - Respiratory Exam Respiratory Exam: NORMAL BREATHING PATTERN - Cardiovascular Exam Cardiovascular Exam: REGULAR RHYTHM - GI/Abdominal Exam GI & Abdominal Exam: Soft, Hypoactive Bowel Sounds - Neurological Exam Neurological Exam: absent: Alert, Awake - Psychiatric Exam Additional comments: Patient is non-verbal from anoxic brain injury sustained on 05/2015 - Skin Skin Exam: Normal Color Assessment and Plan - Assessment and Plan (Free Text) Assessment: (1) Anoxic encephalopathy Assessment & Plan: * s/p cardiac arrest in 05/2015 * no acute changes in mental status. * Pt has non spontaneous movements. * patient is currently on 40cc/hr on tube feedings * via PEG * Aspirin 81mg daily * Plavix 75 mg daily * Keppra 500mg bid Status: Chronic (2) Acute Respiratory failure Assessment & Plan: * Trach in place, continue daily monitoring for secretions. No change in management at this time. * Continue with aggressive suctioning multiple times a day per respiratory therapist if secretions are thickened * Scopolamine 1 patch TD Q3D [facility] * Duoneb 3ml INH RQ6 * Acetylcysteine 4ml INH RQ6 * Most recent chest xray: * 09/28/17: no active disease. No significant interval change compared to. Status: Chronic (3) History of Recurrent UTIs Assessment & Plan: * ID consult: Dr. Armstrong --> help appreciated * Patient is afebrile, no apparent leukocytosis * Patient is off IV abx since 08/05/17 * patient has condom catheter and Bladder scan PRN to prevent urinary retention Status: Acute (4) History of Urinary retention Assessment & Plan: * Bethanecol 50mg PEG TID * Tamsulosin 0.4mg PEG QD * Bladder scan up to 3x a week to monitor residual urine * patient has had history of recurrent UTIs Status: Chronic (5) Hypokalemia Assessment & Plan: * Monitor and replete Status: Acute (6) History of Sacral ulcer Assessment & Plan: * Healed * Cont with offloading/cushioning/turning * Continue frequent turning, protective ointment and skin checks. Status: Resolved (7) History of coronary artery disease Assessment & Plan: * s/p cardiac stents on 06/13/15 * Cont ASA 81mg via PEG daily * Cont Coreg 3.125mg PEG BID * Cont Plavix 75 mg PEG daily * Rosuvastatin 2.5mg PO HS Status: Acute (8) History of Seizures Assessment & Plan: * Continue Keppra 500mg PEG BID for seizure prophylaxis * Monitor for activity Status: Chronic (9) Lower extremity edema Assessment & Plan: * Improved * SCDs in place * Pressure ulcer boots on b/l * Continue to monitor Status: Chronic (10) Prophylactic measure Assessment & Plan: * Pepcid 20 mg PEG BID * Lovenox 40mg SC daily * SCDs and offloading boots * Saccharomyces 250mg PEG QD * continue to turn and reposition q2hrs * Continue to monitor medication administrations and clinical presentation weekly labs. * vasoline ointment applied to feet prn to prevent hyperkeratos * Please hold feeding from 10pm-6am, placed into nursing communication * Vitamin A & D for lips Disposition: patient has prolonged hospitalization to multiple co-morbidities. per case management 10/08: unable to place patient. No changes presently.
[2017-12-18] MEDS: Saccharomyces Boulardi 250 mg Cap PEG SCH (12:13)
[2017-12-18] MEDS: levETIRAcetam 100 mg/ml (5ml) Oral Syringe PEG SCH ×2 (12:15→17:11)
[2017-12-18] MEDS: Enoxaparin 40 mg Syringe SC SCH (12:17)
[2017-12-18] MEDS: Rosuvastatin Calcium 2.5 mg Tab PEG SCH (22:49)
[2017-12-19] MEDS: Acetylcysteine 20% Inhal Soln (4ml) INH SCH ×4 (01:56→21:10)
[2017-12-19] MEDS: Albuterol-Ipratrop 3 mg / 0.5 (3 ml) UD INH SCH ×4 (01:56→21:10)
--- NOTE | 2017-12-19 03:05 | CP.PCM.PN ---
<AlexFrancis S - Last Filed: 12/19/17 07:19> Subjective - Date & Time of Evaluation Date of Evaluation: 12/19/17 Time of Evaluation: 05:00 - Subjective Subjective: Medicine progress note for Dr. Chavis Patient seen and examined. Unable to obtain ROS due to anoxic brain injury from 2014. Objective - Vital Signs/Intake and Output Vital Signs (last 24 hours): Temp Pulse Resp BP Pulse Ox 98.9 F 78 20 109/74 98 12/18/17 23:50 12/18/17 23:50 12/18/17 23:50 12/18/17 23:50 12/18/17 23:50 Intake and Output: 12/18/17 12/19/17 18:59 06:59 Intake Total 570 570 Output Total 600 450 Balance -30 120 - Medications Medications: Current Medications Acetylcysteine (Acetylcysteine 20%) 4 ml INH RQ6 [facility] Last Admin: 12/19/17 01:56 Dose: 4 ml Albuterol/Ipratropium (Duoneb 3 Mg/0.5 Mg (3 Ml) Ud) 3 ml INH RQ6 [facility] Last Admin: 12/19/17 01:56 Dose: 3 ml Aspirin (Aspirin Chewable) 81 mg PEG DAILY [facility] Last Admin: 12/18/17 12:14 Dose: 81 mg Bethanechol Chloride (Urecholine) 50 mg PO TID [facility] Last Admin: 12/18/17 17:06 Dose: 50 mg Carvedilol (Coreg) 3.125 mg PEG BID [facility] Last Admin: 12/18/17 17:05 Dose: 3.125 mg Clopidogrel Bisulfate (Plavix) 75 mg PEG DAILY [facility] Last Admin: 12/18/17 12:18 Dose: 75 mg Enoxaparin Sodium (Lovenox) 40 mg SC DAILY [facility] Last Admin: 12/18/17 12:17 Dose: 40 mg Famotidine (Pepcid) 20 mg PEG DAILY [facility] Last Admin: 12/18/17 12:14 Dose: 20 mg Finasteride (Proscar) 5 mg PEG DAILY [facility] Last Admin: 12/18/17 12:14 Dose: 5 mg Levetiracetam (Keppra) 500 mg PEG BID [facility] Last Admin: 12/18/17 17:11 Dose: 500 mg Rosuvastatin Calcium (Crestor) 2.5 mg PEG HS [facility] Last Admin: 12/18/17 22:49 Dose: 2.5 mg Saccharomyces Boulardii (Florastor) 250 mg PEG DAILY [facility] Last Admin: 12/18/17 12:13 Dose: 250 mg Scopolamine (Transderm-Scop) 1 patch TD Q3D [facility] Last Admin: 12/17/17 11:21 Dose: 1 patch Tamsulosin HCl (Flomax) 0.4 mg PEG DAILY [facility] Last Admin: 12/18/17 12:13 Dose: 0.4 mg Vitamin A (Vitamin A & D Oint Ud Foilpak) 0.5 ea TOP Q4 PRN PRN Reason: Dry skin Last Admin: 12/11/17 18:17 Dose: 0.5 ea - Labs Labs: 12/14/17 06:05 12/14/17 06:05 PT 10.6 SECONDS (9.7-12.2) 11/24/15 14:10 INR 1.0 11/24/15 14:10 APTT 25 SECONDS (21-34) 11/24/15 14:10 - Additional Findings Additional findings: - Head Exam Head Exam: ATRAUMATIC, NORMAL INSPECTION - Eye Exam Eye Exam: absent: EOMI, Normal appearance - ENT Exam ENT Exam: Mucous Membranes Moist - Neck Exam Additional comments: Tracheostomy in place - Respiratory Exam Respiratory Exam:Rhonchi. absent: Clear to Ausculation Bilateral (excessive mucous production), Respiratory Distress - Cardiovascular Exam Cardiovascular Exam: REGULAR RHYTHM, +S1, +S2 - GI/Abdominal Exam GI & Abdominal Exam: Distended, Soft, Hypoactive Bowel Sounds. absent: Firm, Mass Additional comments: PEG in place - Extremities Exam Extremities Exam: absent: Pedal Edema - Neurological Exam Neurological Exam: Altered. absent: Alert, Awake, Oriented x3 - Psychiatric Exam Psychiatric exam: Altered (Patient is non-verbal from anoxic brain injury sustained on 05/2015). absent: Normal Affect, Normal Mood - Skin Skin Exam: Dry, Intact, Warm. Assessment and Plan - Assessment and Plan (Free Text) Plan: (1) Anoxic encephalopathy Assessment & Plan: * s/p cardiac arrest in 05/2015 * no acute changes in mental status. * Pt has non spontaneous movements. * patient is currently on 40cc/hr on tube feedings * via PEG * Aspirin 81mg daily * Plavix 75 mg daily * Keppra 500mg bid Status: Chronic (2) Acute Respiratory failure Assessment & Plan: * Trach in place, continue daily monitoring for secretions. No change in management at this time. * Continue with aggressive suctioning multiple times a day per respiratory therapist if secretions are thickened * Scopolamine 1 patch TD Q3D [facility] * Duoneb 3ml INH RQ6 * Acetylcysteine 4ml INH RQ6 * Most recent chest xray: * 09/28/17: no active disease. No significant interval change compared to. Status: Chronic (3) History of Recurrent UTIs Assessment & Plan: * ID consult: Dr. Armstrong --> help appreciated * Patient is afebrile, no apparent leukocytosis * Patient is off IV abx since 08/05/17 * patient has condom catheter and Bladder scan PRN to prevent urinary retention Status: Acute (4) History of Urinary retention Assessment & Plan: * Bethanecol 50mg PEG TID * Tamsulosin 0.4mg PEG QD * Bladder scan up to 3x a week to monitor residual urine * patient has had history of recurrent UTIs Status: Chronic (5) Hypokalemia Assessment & Plan: * Monitor and replete Status: Acute (6) History of Sacral ulcer Assessment & Plan: * Healed * Cont with offloading/cushioning/turning * Continue frequent turning, protective ointment and skin checks. Status: Resolved (7) History of coronary artery disease Assessment & Plan: * s/p cardiac stents on 06/13/15 * Cont ASA 81mg via PEG daily * Cont Coreg 3.125mg PEG BID * Cont Plavix 75 mg PEG daily * Rosuvastatin 2.5mg PO HS Status: Acute (8) History of Seizures Assessment & Plan: * Continue Keppra 500mg PEG BID for seizure prophylaxis * Monitor for activity Status: Chronic (9) Lower extremity edema Assessment & Plan: * Improved * SCDs in place * Pressure ulcer boots on b/l * Continue to monitor Status: Chronic (10) Prophylactic measure Assessment & Plan: * Pepcid 20 mg PEG BID * Lovenox 40mg SC daily * SCDs and offloading boots * Saccharomyces 250mg PEG QD * continue to turn and reposition q2hrs * Continue to monitor medication administrations and clinical presentation weekly labs. * vasoline ointment applied to feet prn to prevent hyperkeratos * Please hold feeding from 10pm-6am, placed into nursing communication * Vitamin A & D for lips Disposition: patient has prolonged hospitalization to multiple co-morbidities. per case management 10/08: unable to place patient. No changes presently. Will discuss case with Dr. Palmira Johnson PGY-1 <Amandeep Chavis H - Last Filed: 12/19/17 09:07> Objective - Vital Signs/Intake and Output Vital Signs (last 24 hours): Temp Pulse Resp BP Pulse Ox 98.9 F 78 20 109/74 98 12/18/17 23:50 12/18/17 23:50 12/18/17 23:50 12/18/17 23:50 12/18/17 23:50 Intake and Output: 12/19/17 12/19/17 06:59 18:59 Intake Total 900 Output Total 550 Balance 350 - Medications Medications: Current Medications Acetylcysteine (Acetylcysteine 20%) 4 ml INH RQ6 [facility] Last Admin: 12/19/17 01:56 Dose: 4 ml Albuterol/Ipratropium (Duoneb 3 Mg/0.5 Mg (3 Ml) Ud) 3 ml INH RQ6 [facility] Last Admin: 12/19/17 01:56 Dose: 3 ml Aspirin (Aspirin Chewable) 81 mg PEG DAILY [facility] Last Admin: 12/18/17 12:14 Dose: 81 mg Bethanechol Chloride (Urecholine) 50 mg PO TID [facility] Last Admin: 12/18/17 17:06 Dose: 50 mg Carvedilol (Coreg) 3.125 mg PEG BID [facility] Last Admin: 12/18/17 17:05 Dose: 3.125 mg Clopidogrel Bisulfate (Plavix) 75 mg PEG DAILY [facility] Last Admin: 12/18/17 12:18 Dose: 75 mg Enoxaparin Sodium (Lovenox) 40 mg SC DAILY [facility] Last Admin: 12/18/17 12:17 Dose: 40 mg Famotidine (Pepcid) 20 mg PEG DAILY [facility] Last Admin: 12/18/17 12:14 Dose: 20 mg Finasteride (Proscar) 5 mg PEG DAILY [facility] Last Admin: 12/18/17 12:14 Dose: 5 mg Levetiracetam (Keppra) 500 mg PEG BID [facility] Last Admin: 12/18/17 17:11 Dose: 500 mg Rosuvastatin Calcium (Crestor) 2.5 mg PEG HS [facility] Last Admin: 12/18/17 22:49 Dose: 2.5 mg Saccharomyces Boulardii (Florastor) 250 mg PEG DAILY [facility] Last Admin: 12/18/17 12:13 Dose: 250 mg Scopolamine (Transderm-Scop) 1 patch TD Q3D [facility] Last Admin: 12/17/17 11:21 Dose: 1 patch Tamsulosin HCl (Flomax) 0.4 mg PEG DAILY [facility] Last Admin: 12/18/17 12:13 Dose: 0.4 mg Vitamin A (Vitamin A & D Oint Ud Foilpak) 0.5 ea TOP Q4 PRN PRN Reason: Dry skin Last Admin: 12/11/17 18:17 Dose: 0.5 ea - Labs Labs: 12/14/17 06:05 12/14/17 06:05 PT 10.6 SECONDS (9.7-12.2) 11/24/15 14:10 INR 1.0 11/24/15 14:10 APTT 25 SECONDS (21-34) 11/24/15 14:10 Assessment and Plan (1) Prophylactic measure Status: Acute (2) Anoxic encephalopathy Status: Chronic (3) STEMI (ST elevation myocardial infarction) Status: Acute (4) Cardiac arrest Status: Acute (5) Seizures Status: Acute (6) Respiratory failure Status: Chronic Attending/Attestation - Attestation I have personally seen and examined this patient.: Yes I have fully participated in the care of the patient.: Yes I have reviewed all pertinent clinical information, including history, physical exam and plan: Yes Notes (Text): Medical attending: Patient was seen and examined by me. Agree with the above note by the resident The patient's situation remain unchanged from before thank you Amandeep Chavis
[2017-12-19] MEDS: Saccharomyces Boulardi 250 mg Cap PEG SCH (10:10)
[2017-12-19] MEDS: levETIRAcetam 100 mg/ml (5ml) Oral Syringe PEG SCH ×2 (10:10→18:35)
[2017-12-19] MEDS: Enoxaparin 40 mg Syringe SC SCH (10:11)
[2017-12-19] MEDS: Rosuvastatin Calcium 2.5 mg Tab PEG SCH (21:29)
--- NOTE | 2017-12-20 00:07 | CP.PCM.PN ---
Subjective - Date & Time of Evaluation Date of Evaluation: 12/20/17 Time of Evaluation: 05:00 - Subjective Subjective: Medicine progress note for Dr. Chavis Patient seen and examined. Cannot obtain ROS due to anoxic brain injury from 2014. Objective - Vital Signs/Intake and Output Vital Signs (last 24 hours): Temp Pulse Resp BP Pulse Ox 98.3 F 76 20 114/75 100 12/19/17 16:00 12/19/17 16:00 12/19/17 16:00 12/19/17 16:00 12/19/17 16:00 Intake and Output: 12/19/17 12/20/17 18:59 06:59 Intake Total 570 620 Output Total 600 300 Balance -30 320 - Medications Medications: Current Medications Acetylcysteine (Acetylcysteine 20%) 4 ml INH RQ6 [facility] Last Admin: 12/19/17 21:10 Dose: 4 ml Albuterol/Ipratropium (Duoneb 3 Mg/0.5 Mg (3 Ml) Ud) 3 ml INH RQ6 [facility] Last Admin: 12/19/17 21:10 Dose: 3 ml Aspirin (Aspirin Chewable) 81 mg PEG DAILY [facility] Last Admin: 12/19/17 10:11 Dose: 81 mg Bethanechol Chloride (Urecholine) 50 mg PO TID [facility] Last Admin: 12/19/17 18:35 Dose: 50 mg Carvedilol (Coreg) 3.125 mg PEG BID [facility] Last Admin: 12/19/17 18:35 Dose: 3.125 mg Clopidogrel Bisulfate (Plavix) 75 mg PEG DAILY [facility] Last Admin: 12/19/17 10:10 Dose: 75 mg Enoxaparin Sodium (Lovenox) 40 mg SC DAILY [facility] Last Admin: 12/19/17 10:11 Dose: 40 mg Famotidine (Pepcid) 20 mg PEG DAILY [facility] Last Admin: 12/19/17 10:10 Dose: 20 mg Finasteride (Proscar) 5 mg PEG DAILY [facility] Last Admin: 12/19/17 10:10 Dose: 5 mg Levetiracetam (Keppra) 500 mg PEG BID [facility] Last Admin: 12/19/17 18:35 Dose: 500 mg Rosuvastatin Calcium (Crestor) 2.5 mg PEG HS [facility] Last Admin: 12/19/17 21:29 Dose: 2.5 mg Saccharomyces Boulardii (Florastor) 250 mg PEG DAILY [facility] Last Admin: 12/19/17 10:10 Dose: 250 mg Scopolamine (Transderm-Scop) 1 patch TD Q3D [facility] Last Admin: 12/17/17 11:21 Dose: 1 patch Tamsulosin HCl (Flomax) 0.4 mg PEG DAILY [facility] Last Admin: 12/19/17 10:10 Dose: 0.4 mg Vitamin A (Vitamin A & D Oint Ud Foilpak) 0.5 ea TOP Q4 PRN PRN Reason: Dry skin Last Admin: 12/11/17 18:17 Dose: 0.5 ea - Labs Labs: 12/14/17 06:05 12/14/17 06:05 PT 10.6 SECONDS (9.7-12.2) 11/24/15 14:10 INR 1.0 11/24/15 14:10 APTT 25 SECONDS (21-34) 11/24/15 14:10 - Additional Findings Additional findings: - Head Exam Head Exam: ATRAUMATIC, NORMAL INSPECTION - Eye Exam Eye Exam: absent: EOMI, Normal appearance - ENT Exam ENT Exam: Mucous Membranes Moist - Neck Exam Additional comments: Tracheostomy in place - Respiratory Exam Respiratory Exam:Rhonchi. absent: Clear to Ausculation Bilateral (excessive mucous production), Respiratory Distress - Cardiovascular Exam Cardiovascular Exam: REGULAR RHYTHM, +S1, +S2 - GI/Abdominal Exam GI & Abdominal Exam: Distended, Soft, Hypoactive Bowel Sounds. absent: Firm, Mass Additional comments: PEG in place - Extremities Exam Extremities Exam: absent: Pedal Edema - Neurological Exam Neurological Exam: Altered. absent: Alert, Awake, Oriented x3 - Psychiatric Exam Psychiatric exam: Altered (Patient is non-verbal from anoxic brain injury sustained on 05/2015). absent: Normal Affect, Normal Mood - Skin Skin Exam: Dry, Intact, Warm. Assessment and Plan - Assessment and Plan (Free Text) Plan: (1) Anoxic encephalopathy Assessment & Plan: * s/p cardiac arrest in 05/2015 * no acute changes in mental status. * Pt has non spontaneous movements. * patient is currently on 40cc/hr on tube feedings * via PEG * Aspirin 81mg daily * Plavix 75 mg daily * Keppra 500mg bid Status: Chronic (2) Acute Respiratory failure Assessment & Plan: * Trach in place, continue daily monitoring for secretions. No change in management at this time. * Continue with aggressive suctioning multiple times a day per respiratory therapist if secretions are thickened * Scopolamine 1 patch TD Q3D JOO * Duoneb 3ml INH RQ6 * Acetylcysteine 4ml INH RQ6 * Most recent chest xray: * 09/28/17: no active disease. No significant interval change compared to. Status: Chronic (3) History of Recurrent UTIs Assessment & Plan: * ID consult: Dr. Armstrong --> help appreciated * Patient is afebrile, no apparent leukocytosis * Patient is off IV abx since 08/05/17 * patient has condom catheter and Bladder scan PRN to prevent urinary retention Status: Acute (4) History of Urinary retention Assessment & Plan: * Bethanecol 50mg PEG TID * Tamsulosin 0.4mg PEG QD * Bladder scan up to 3x a week to monitor residual urine * patient has had history of recurrent UTIs Status: Chronic (5) Hypokalemia Assessment & Plan: * Monitor and replete Status: Acute (6) History of Sacral ulcer Assessment & Plan: * Healed * Cont with offloading/cushioning/turning * Continue frequent turning, protective ointment and skin checks. Status: Resolved (7) History of coronary artery disease Assessment & Plan: * s/p cardiac stents on 06/13/15 * Cont ASA 81mg via PEG daily * Cont Coreg 3.125mg PEG BID * Cont Plavix 75 mg PEG daily * Rosuvastatin 2.5mg PO HS Status: Acute (8) History of Seizures Assessment & Plan: * Continue Keppra 500mg PEG BID for seizure prophylaxis * Monitor for activity Status: Chronic (9) Lower extremity edema Assessment & Plan: * Improved * SCDs in place * Pressure ulcer boots on b/l * Continue to monitor Status: Chronic (10) Prophylactic measure Assessment & Plan: * Pepcid 20 mg PEG BID * Lovenox 40mg SC daily * SCDs and offloading boots * Saccharomyces 250mg PEG QD * continue to turn and reposition q2hrs * Continue to monitor medication administrations and clinical presentation weekly labs. * vasoline ointment applied to feet prn to prevent hyperkeratos * Please hold feeding from 10pm-6am, placed into nursing communication * Vitamin A & D for lips Disposition: patient has prolonged hospitalization to multiple co-morbidities. per case management 10/08: unable to place patient. No updates at this time. Will discuss case with Dr. Palmira Johnson PGY-1
[2017-12-20] MEDS: Acetylcysteine 20% Inhal Soln (4ml) INH SCH ×4 (01:59→19:50)
[2017-12-20] MEDS: Albuterol-Ipratrop 3 mg / 0.5 (3 ml) UD INH SCH ×4 (01:59→19:50)
[2017-12-20] MEDS: Saccharomyces Boulardi 250 mg Cap PEG SCH (09:44)
[2017-12-20] MEDS: Enoxaparin 40 mg Syringe SC SCH (09:45)
[2017-12-20] MEDS: levETIRAcetam 100 mg/ml (5ml) Oral Syringe PEG SCH ×2 (09:45→17:31)
[2017-12-21] MEDS: Acetylcysteine 20% Inhal Soln (4ml) INH SCH ×4 (01:51→19:08)
[2017-12-21] MEDS: Albuterol-Ipratrop 3 mg / 0.5 (3 ml) UD INH SCH ×4 (01:52→19:08)
--- NOTE | 2017-12-21 07:40 | CP.PCM.PN ---
<Francis Johnson - Last Filed: 12/21/17 20:01> Subjective - Date & Time of Evaluation Date of Evaluation: 12/21/17 Time of Evaluation: 07:50 - Subjective Subjective: Medicine progress note for Dr. Hallman Patient seen and examined. Cannot obtain ROS due to anoxic brain injury from 2014. No acute events overnight. Objective - Vital Signs/Intake and Output Vital Signs (last 24 hours): Temp Pulse Resp BP Pulse Ox 98 F 77 16 112/67 99 12/21/17 00:00 12/21/17 00:00 12/21/17 00:00 12/21/17 00:00 12/21/17 00:00 Intake and Output: 12/21/17 12/21/17 06:59 18:59 Intake Total 330 Output Total 900 Balance -570 - Medications Medications: Current Medications Acetylcysteine (Acetylcysteine 20%) 4 ml INH RQ6 [facility] Last Admin: 12/21/17 07:28 Dose: 4 ml Albuterol/Ipratropium (Duoneb 3 Mg/0.5 Mg (3 Ml) Ud) 3 ml INH RQ6 [facility] Last Admin: 12/21/17 07:28 Dose: 3 ml Aspirin (Aspirin Chewable) 81 mg PEG DAILY [facility] Last Admin: 12/20/17 09:44 Dose: 81 mg Bethanechol Chloride (Urecholine) 50 mg PO TID [facility] Last Admin: 12/20/17 17:31 Dose: 50 mg Carvedilol (Coreg) 3.125 mg PEG BID [facility] Last Admin: 12/20/17 17:31 Dose: 3.125 mg Clopidogrel Bisulfate (Plavix) 75 mg PEG DAILY [facility] Last Admin: 12/20/17 09:45 Dose: 75 mg Enoxaparin Sodium (Lovenox) 40 mg SC DAILY [facility] Last Admin: 12/20/17 09:45 Dose: 40 mg Famotidine (Pepcid) 20 mg PEG DAILY [facility] Last Admin: 12/20/17 09:44 Dose: 20 mg Finasteride (Proscar) 5 mg PEG DAILY [facility] Last Admin: 12/20/17 09:45 Dose: 5 mg Levetiracetam (Keppra) 500 mg PEG BID [facility] Last Admin: 12/20/17 17:31 Dose: 500 mg Rosuvastatin Calcium (Crestor) 2.5 mg PEG HS [facility] Last Admin: 12/19/17 21:29 Dose: 2.5 mg Saccharomyces Boulardii (Florastor) 250 mg PEG DAILY [facility] Last Admin: 12/20/17 09:44 Dose: 250 mg Scopolamine (Transderm-Scop) 1 patch TD Q3D [facility] Last Admin: 12/20/17 09:46 Dose: 1 patch Tamsulosin HCl (Flomax) 0.4 mg PEG DAILY [facility] Last Admin: 12/20/17 09:45 Dose: 0.4 mg Vitamin A (Vitamin A & D Oint Ud Foilpak) 0.5 ea TOP Q4 PRN PRN Reason: Dry skin Last Admin: 12/11/17 18:17 Dose: 0.5 ea - Labs Labs: 12/14/17 06:05 12/14/17 06:05 PT 10.6 SECONDS (9.7-12.2) 11/24/15 14:10 INR 1.0 11/24/15 14:10 APTT 25 SECONDS (21-34) 11/24/15 14:10 - Additional Findings Additional findings: - Head Exam Head Exam: ATRAUMATIC, NORMAL INSPECTION - Eye Exam Eye Exam: absent: EOMI, Normal appearance - ENT Exam ENT Exam: Mucous Membranes Moist - Neck Exam Additional comments: Tracheostomy in place - Respiratory Exam Respiratory Exam:Rhonchi. absent: Clear to Ausculation Bilateral (excessive mucous production), Respiratory Distress - Cardiovascular Exam Cardiovascular Exam: REGULAR RHYTHM, +S1, +S2 - GI/Abdominal Exam GI & Abdominal Exam: Distended, Soft, Hypoactive Bowel Sounds. absent: Firm, Mass Additional comments: PEG in place - Extremities Exam Extremities Exam: absent: Pedal Edema - Neurological Exam Neurological Exam: Altered. absent: Alert, Awake, Oriented x3 - Psychiatric Exam Psychiatric exam: Altered (Patient is non-verbal from anoxic brain injury sustained on 05/2015). absent: Normal Affect, Normal Mood - Skin Skin Exam: Dry, Intact, Warm. Assessment and Plan - Assessment and Plan (Free Text) Plan: (1) Anoxic encephalopathy Assessment & Plan: * s/p cardiac arrest in 05/2015 * no acute changes in mental status. * Pt has non spontaneous movements. * patient is currently on 40cc/hr on tube feedings * via PEG * Aspirin 81mg daily * Plavix 75 mg daily * Keppra 500mg bid Status: Chronic (2) Acute Respiratory failure Assessment & Plan: * Trach in place, continue daily monitoring for secretions. No change in management at this time. * Continue with aggressive suctioning multiple times a day per respiratory therapist if secretions are thickened * Scopolamine 1 patch TD Q3D JOO * Duoneb 3ml INH RQ6 * Acetylcysteine 4ml INH RQ6 * Most recent chest xray: * 09/28/17: no active disease. No significant interval change compared to. Status: Chronic (3) History of Recurrent UTIs Assessment & Plan: * ID consult: Dr. Armstrong --> help appreciated * Patient is afebrile, no apparent leukocytosis * Patient is off IV abx since 08/05/17 * patient has condom catheter and Bladder scan PRN to prevent urinary retention Status: Acute (4) History of Urinary retention Assessment & Plan: * Bethanecol 50mg PEG TID * Tamsulosin 0.4mg PEG QD * Bladder scan up to 3x a week to monitor residual urine * patient has had history of recurrent UTIs Status: Chronic (5) Hypokalemia Assessment & Plan: * Monitor and replete Status: Acute (6) History of Sacral ulcer Assessment & Plan: * Healed * Cont with offloading/cushioning/turning * Continue frequent turning, protective ointment and skin checks. Status: Resolved (7) History of coronary artery disease Assessment & Plan: * s/p cardiac stents on 06/13/15 * Cont ASA 81mg via PEG daily * Cont Coreg 3.125mg PEG BID * Cont Plavix 75 mg PEG daily * Rosuvastatin 2.5mg PO HS Status: Acute (8) History of Seizures Assessment & Plan: * Continue Keppra 500mg PEG BID for seizure prophylaxis * Monitor for activity Status: Chronic (9) Lower extremity edema Assessment & Plan: * Improved * SCDs in place * Pressure ulcer boots on b/l * Continue to monitor Status: Chronic (10) Prophylactic measure Assessment & Plan: * Pepcid 20 mg PEG BID * Lovenox 40mg SC daily * SCDs and offloading boots * Saccharomyces 250mg PEG QD * continue to turn and reposition q2hrs * Continue to monitor medication administrations and clinical presentation weekly labs. * vasoline ointment applied to feet prn to prevent hyperkeratos * Please hold feeding from 10pm-6am, placed into nursing communication * Vitamin A & D for lips Disposition: patient has prolonged hospitalization to multiple co-morbidities. per case management 10/08: unable to place patient. No updates at this time. Case DW Dr. Viji Johnson PGY-1 <Donavan Hallman - Last Filed: 02/12/18 15:07> Objective - Vital Signs/Intake and Output Vital Signs (last 24 hours): Temp Pulse Resp BP Pulse Ox 98.5 F 69 20 117/74 100 02/12/18 07:00 02/12/18 07:00 02/12/18 07:00 02/12/18 07:00 02/12/18 07:00 Intake and Output: 02/12/18 02/12/18 06:59 18:59 Intake Total 860 1680 Output Total 850 800 Balance 10 880 - Medications Medications: Current Medications Aspirin (Aspirin Chewable) 81 mg PEG DAILY [facility] Last Admin: 02/12/18 09:53 Dose: 81 mg Carvedilol (Coreg) 3.125 mg PO BID [facility] Last Admin: 02/12/18 09:53 Dose: 3.125 mg Enoxaparin Sodium (Lovenox) 40 mg SC DAILY [facility] Last Admin: 02/12/18 09:53 Dose: 40 mg Famotidine (Pepcid) 20 mg PEG DAILY [facility] Last Admin: 02/12/18 09:53 Dose: 20 mg Finasteride (Proscar) 5 mg PO DAILY [facility] Last Admin: 02/12/18 09:53 Dose: 5 mg Levetiracetam (Keppra) 500 mg PEG BID [facility] Last Admin: 02/12/18 09:53 Dose: 500 mg Mupirocin (Bactroban Ointment) 0 gm TOP DAILY [facility] Last Admin: 02/12/18 09:54 Dose: 1 applic Rosuvastatin Calcium (Crestor) 2.5 mg PEG HS [facility] Last Admin: 02/11/18 21:37 Dose: 2.5 mg Scopolamine (Transderm-Scop) 1 patch TD Q3D [facility] Last Admin: 02/12/18 09:53 Dose: 1 patch Tamsulosin HCl (Flomax) 0.4 mg PEG DAILY [facility] Last Admin: 02/12/18 09:53 Dose: 0.4 mg - Labs Labs: 02/08/18 08:38 02/08/18 08:38 PT 10.6 SECONDS (9.7-12.2) 11/24/15 14:10 INR 1.0 11/24/15 14:10 APTT 25 SECONDS (21-34) 11/24/15 14:10 Attending/Attestation - Attestation I have personally seen and examined this patient.: Yes I have fully participated in the care of the patient.: Yes I have reviewed all pertinent clinical information, including history, physical exam and plan: Yes Notes (Text): (1) Anoxic encephalopathy (2) Acute Respiratory failure (3) History of Recurrent UTIs (4) History of Urinary retention (5) Hypokalemia (6) History of Sacral ulcer (7) History of coronary artery disease
[2017-12-21] MEDS: Saccharomyces Boulardi 250 mg Cap PEG SCH (10:42)
[2017-12-21] MEDS: Enoxaparin 40 mg Syringe SC SCH (10:42)
[2017-12-21] MEDS: levETIRAcetam 100 mg/ml (5ml) Oral Syringe PEG SCH ×2 (10:43→18:23)
[2017-12-21 11:25] LABS: BASO % 0.4 % (0.0-2.0); EOS # 0.3 K/uL (0.0-0.7); EOS % 3.4 % (0.0-4.0); HEMOGLOBIN 11.8 g/dL (12.0-18.0); LYMPH # 2.4 K/uL (1.0-4.3); LYMPH % 27.5 % (20.0-40.0); MEAN CELL VOLUME 88.2 fL (80.0-94.0); MEAN CORPUSCULAR HEMOGLOBIN 29.5 pg (27.0-31.0); MEAN CORPUSCULAR HGB CONC 33.4 g/dL (33.0-37.0); MEAN PLATELET VOLUME 8.7 fL (7.2-11.7); MONO # 0.6 K/uL (0.0-0.8); MONO % 7.3 % (0.0-10.0); NEUT # 5.4 K/uL (1.8-7.0); NEUT % 61.4 % (50.0-75.0); RBC 4.02 Mil/uL (4.40-5.90); RED CELL DISTRIBUTION WIDTH 14.6 % (11.5-14.5); WHITE BLOOD COUNT 8.7 K/uL (4.8-10.8)
[2017-12-21 12:22] LABS: ALB/GLOB RATIO 0.8 (1.0-2.1); ALBUMIN 3.7 g/dL (3.5-5.0); ALT/SGPT 49 U/L (21-72); AST/SGOT 29 U/L (17-59); BLOOD UREA NITROGEN 13 mg/dL (9-20); CALCIUM 8.8 mg/dl (8.6-10.4); GFR NON-AFRICAN AMERICAN > 60
[2017-12-21] MEDS: Rosuvastatin Calcium 2.5 mg Tab PEG SCH (21:57)
[2017-12-22] MEDS: Acetylcysteine 20% Inhal Soln (4ml) INH SCH ×4 (01:59→20:09)
[2017-12-22] MEDS: Albuterol-Ipratrop 3 mg / 0.5 (3 ml) UD INH SCH ×4 (01:59→20:09)
[2017-12-22] MEDS: levETIRAcetam 100 mg/ml (5ml) Oral Syringe PEG SCH ×2 (09:52→17:54)
[2017-12-22] MEDS: Saccharomyces Boulardi 250 mg Cap PEG SCH (09:52)
[2017-12-22] MEDS: Enoxaparin 40 mg Syringe SC SCH (09:53)
[2017-12-22] MEDS: Rosuvastatin Calcium 2.5 mg Tab PEG SCH (22:03)
[2017-12-23] MEDS: Albuterol-Ipratrop 3 mg / 0.5 (3 ml) UD INH SCH ×4 (01:11→19:10)
[2017-12-23] MEDS: Acetylcysteine 20% Inhal Soln (4ml) INH SCH ×4 (01:11→19:10)
--- NOTE | 2017-12-23 07:18 | CP.PCM.PN ---
<Francis Johnson - Last Filed: 12/23/17 17:16> Subjective - Date & Time of Evaluation Date of Evaluation: 12/23/17 Time of Evaluation: 09:10 - Subjective Subjective: Medicine progress note for Dr. Moore Patient seen and examined. Cannot obtain ROS due to anoxic brain injury from 2014. No acute events overnight. Objective - Vital Signs/Intake and Output Vital Signs (last 24 hours): Temp Pulse Resp BP Pulse Ox 98.3 F 77 20 100/67 98 12/22/17 23:39 12/22/17 23:39 12/22/17 23:39 12/22/17 23:39 12/22/17 23:39 Intake and Output: 12/23/17 12/23/17 06:59 18:59 Intake Total 570 258 Output Total 500 100 Balance 70 158 - Medications Medications: Current Medications Acetylcysteine (Acetylcysteine 20%) 4 ml INH RQ6 [facility] Last Admin: 12/23/17 01:11 Dose: 4 ml Albuterol/Ipratropium (Duoneb 3 Mg/0.5 Mg (3 Ml) Ud) 3 ml INH RQ6 [facility] Last Admin: 12/23/17 01:11 Dose: 3 ml Aspirin (Aspirin Chewable) 81 mg PEG DAILY [facility] Last Admin: 12/22/17 09:52 Dose: 81 mg Bethanechol Chloride (Urecholine) 50 mg PO TID [facility] Last Admin: 12/22/17 17:29 Dose: 50 mg Carvedilol (Coreg) 3.125 mg PEG BID [facility] Last Admin: 12/22/17 17:29 Dose: 3.125 mg Clopidogrel Bisulfate (Plavix) 75 mg PEG DAILY [facility] Last Admin: 12/22/17 09:52 Dose: 75 mg Enoxaparin Sodium (Lovenox) 40 mg SC DAILY [facility] Last Admin: 12/22/17 09:53 Dose: 40 mg Famotidine (Pepcid) 20 mg PEG DAILY [facility] Last Admin: 12/22/17 09:52 Dose: 20 mg Finasteride (Proscar) 5 mg PEG DAILY [facility] Last Admin: 12/22/17 09:53 Dose: 5 mg Levetiracetam (Keppra) 500 mg PEG BID [facility] Last Admin: 12/22/17 17:54 Dose: 500 mg Rosuvastatin Calcium (Crestor) 2.5 mg PEG HS [facility] Last Admin: 12/22/17 22:03 Dose: 2.5 mg Saccharomyces Boulardii (Florastor) 250 mg PEG DAILY [facility] Last Admin: 12/22/17 09:52 Dose: 250 mg Scopolamine (Transderm-Scop) 1 patch TD Q3D [facility] Last Admin: 12/20/17 09:46 Dose: 1 patch Tamsulosin HCl (Flomax) 0.4 mg PEG DAILY [facility] Last Admin: 12/22/17 09:52 Dose: 0.4 mg - Labs Labs: 12/21/17 11:11 12/21/17 11:11 PT 10.6 SECONDS (9.7-12.2) 11/24/15 14:10 INR 1.0 11/24/15 14:10 APTT 25 SECONDS (21-34) 11/24/15 14:10 - Additional Findings Additional findings: - Head Exam Head Exam: ATRAUMATIC, NORMAL INSPECTION - Eye Exam Eye Exam: absent: EOMI, Normal appearance - ENT Exam ENT Exam: Mucous Membranes Moist - Neck Exam Additional comments: Tracheostomy in place - Respiratory Exam Respiratory Exam:Rhonchi. absent: Clear to Ausculation Bilateral (excessive mucous production), Respiratory Distress - Cardiovascular Exam Cardiovascular Exam: REGULAR RHYTHM, +S1, +S2 - GI/Abdominal Exam GI & Abdominal Exam: Distended, Soft, Hypoactive Bowel Sounds. absent: Firm, Mass Additional comments: PEG in place - Extremities Exam Extremities Exam: absent: Pedal Edema - Neurological Exam Neurological Exam: Altered. absent: Alert, Awake, Oriented x3 - Psychiatric Exam Psychiatric exam: Altered (Patient is non-verbal from anoxic brain injury sustained on 05/2015). absent: Normal Affect, Normal Mood - Skin Skin Exam: Dry, Intact, Warm. Assessment and Plan - Assessment and Plan (Free Text) Plan: (1) Anoxic encephalopathy Assessment & Plan: * s/p cardiac arrest in 05/2015 * no acute changes in mental status. * Pt has non spontaneous movements. * patient is currently on 40cc/hr on tube feedings * via PEG * Aspirin 81mg daily * Plavix 75 mg daily * Keppra 500mg bid Status: Chronic (2) Acute Respiratory failure Assessment & Plan: * Trach in place, continue daily monitoring for secretions. No change in management at this time. * Continue with aggressive suctioning multiple times a day per respiratory therapist if secretions are thickened * Scopolamine 1 patch TD Q3D JOO * Duoneb 3ml INH RQ6 * Acetylcysteine 4ml INH RQ6 * Most recent chest xray: * 09/28/17: no active disease. No significant interval change compared to. Status: Chronic (3) History of Recurrent UTIs Assessment & Plan: * ID consult: Dr. Armstrong --> help appreciated * Patient is afebrile, no apparent leukocytosis * Patient is off IV abx since 08/05/17 * patient has condom catheter and Bladder scan PRN to prevent urinary retention Status: Acute (4) History of Urinary retention Assessment & Plan: * Bethanecol 50mg PEG TID * Tamsulosin 0.4mg PEG QD * Bladder scan up to 3x a week to monitor residual urine * patient has had history of recurrent UTIs Status: Chronic (5) Hypokalemia Assessment & Plan: * Monitor and replete Status: Acute (6) History of Sacral ulcer Assessment & Plan: * Healed * Cont with offloading/cushioning/turning * Continue frequent turning, protective ointment and skin checks. Status: Resolved (7) History of coronary artery disease Assessment & Plan: * s/p cardiac stents on 06/13/15 * Cont ASA 81mg via PEG daily * Cont Coreg 3.125mg PEG BID * Cont Plavix 75 mg PEG daily * Rosuvastatin 2.5mg PO HS Status: Acute (8) History of Seizures Assessment & Plan: * Continue Keppra 500mg PEG BID for seizure prophylaxis * Monitor for activity Status: Chronic (9) Lower extremity edema Assessment & Plan: * Improved * SCDs in place * Pressure ulcer boots on b/l * Continue to monitor Status: Chronic (10) Prophylactic measure Assessment & Plan: * Pepcid 20 mg PEG BID * Lovenox 40mg SC daily * SCDs and offloading boots * Saccharomyces 250mg PEG QD * continue to turn and reposition q2hrs * Continue to monitor medication administrations and clinical presentation weekly labs. * vasoline ointment applied to feet prn to prevent hyperkeratos * Please hold feeding from 10pm-6am, placed into nursing communication * Vitamin A & D for lips Disposition: patient has prolonged hospitalization to multiple co-morbidities. per case management 10/08: unable to place patient. No updates at this time. Case DW Dr. Teresa Johnson PGY-1 <Jeison Moore - Last Filed: 12/24/17 18:54> Objective - Vital Signs/Intake and Output Vital Signs (last 24 hours): Temp Pulse Resp BP Pulse Ox 98.2 F 60 20 114/78 99 12/24/17 16:00 12/24/17 16:00 12/24/17 16:00 12/24/17 16:00 12/24/17 16:00 Intake and Output: 12/24/17 12/24/17 06:59 18:59 Intake Total 860 570 Output Total 250 1000 Balance 610 -430 - Medications Medications: Current Medications Acetylcysteine (Acetylcysteine 20%) 4 ml INH RQ6 [facility] Last Admin: 12/24/17 13:22 Dose: 4 ml Albuterol/Ipratropium (Duoneb 3 Mg/0.5 Mg (3 Ml) Ud) 3 ml INH RQ6 [facility] Last Admin: 12/24/17 13:22 Dose: 3 ml Aspirin (Aspirin Chewable) 81 mg PEG DAILY [facility] Last Admin: 12/24/17 11:00 Dose: 81 mg Bethanechol Chloride (Urecholine) 50 mg PO TID [facility] Last Admin: 12/24/17 17:32 Dose: 50 mg Carvedilol (Coreg) 3.125 mg PEG BID [facility] Last Admin: 12/24/17 17:31 Dose: 3.125 mg Clopidogrel Bisulfate (Plavix) 75 mg PEG DAILY [facility] Last Admin: 12/24/17 11:00 Dose: 75 mg Enoxaparin Sodium (Lovenox) 40 mg SC DAILY [facility] Last Admin: 12/24/17 11:00 Dose: 40 mg Famotidine (Pepcid) 20 mg PEG DAILY [facility] Last Admin: 12/24/17 11:00 Dose: 20 mg Finasteride (Proscar) 5 mg PEG DAILY [facility] Last Admin: 12/24/17 11:00 Dose: 5 mg Levetiracetam (Keppra) 500 mg PEG BID [facility] Last Admin: 12/24/17 17:32 Dose: 500 mg Rosuvastatin Calcium (Crestor) 2.5 mg PEG HS [facility] Last Admin: 12/23/17 21:54 Dose: 2.5 mg Saccharomyces Boulardii (Florastor) 250 mg PEG DAILY [facility] Last Admin: 12/24/17 11:00 Dose: 250 mg Scopolamine (Transderm-Scop) 1 patch TD Q3D [facility] Last Admin: 12/23/17 10:57 Dose: 1 patch Tamsulosin HCl (Flomax) 0.4 mg PEG DAILY [facility] Last Admin: 12/24/17 11:00 Dose: 0.4 mg - Labs Labs: 12/21/17 11:11 12/21/17 11:11 PT 10.6 SECONDS (9.7-12.2) 11/24/15 14:10 INR 1.0 11/24/15 14:10 APTT 25 SECONDS (21-34) 11/24/15 14:10 Attending/Attestation - Attestation I have personally seen and examined this patient.: Yes I have fully participated in the care of the patient.: Yes I have reviewed all pertinent clinical information, including history, physical exam and plan: Yes Notes (Text): Patient was seen and examined I agree with the documentation of the resident's assessment and the plan 12/24/17 18:53
[2017-12-23] MEDS: Enoxaparin 40 mg Syringe SC SCH (10:00)
[2017-12-23] MEDS: levETIRAcetam 100 mg/ml (5ml) Oral Syringe PEG SCH ×2 (10:57→18:09)
[2017-12-23] MEDS: Saccharomyces Boulardi 250 mg Cap PEG SCH (10:58)
[2017-12-23] MEDS: Rosuvastatin Calcium 2.5 mg Tab PEG SCH (21:54)
[2017-12-24] MEDS: Acetylcysteine 20% Inhal Soln (4ml) INH SCH ×4 (01:27→19:10)
[2017-12-24] MEDS: Albuterol-Ipratrop 3 mg / 0.5 (3 ml) UD INH SCH ×4 (01:27→19:10)
[2017-12-24] MEDS: Enoxaparin 40 mg Syringe SC SCH (11:00)
[2017-12-24] MEDS: levETIRAcetam 100 mg/ml (5ml) Oral Syringe PEG SCH ×2 (11:00→17:32)
[2017-12-24] MEDS: Saccharomyces Boulardi 250 mg Cap PEG SCH (11:00)
[2017-12-24] MEDS: Rosuvastatin Calcium 2.5 mg Tab PEG SCH (21:18)
[2017-12-25] MEDS: Albuterol-Ipratrop 3 mg / 0.5 (3 ml) UD INH SCH ×4 (01:45→19:30)
[2017-12-25] MEDS: Acetylcysteine 20% Inhal Soln (4ml) INH SCH ×4 (01:45→19:30)
--- NOTE | 2017-12-25 07:23 | CP.PCM.PN ---
<Francis Johnson - Last Filed: 12/25/17 17:36> Subjective - Date & Time of Evaluation Date of Evaluation: 12/25/17 Time of Evaluation: 09:20 - Subjective Subjective: Medicine progress note for Dr. Moore Patient seen and examined. Unable to obtain ROS due to anoxic brain injury from 2014. No acute events overnight. Objective - Vital Signs/Intake and Output Vital Signs (last 24 hours): Temp Pulse Resp BP Pulse Ox 97.4 F L 62 20 102/68 99 12/25/17 00:00 12/25/17 00:00 12/25/17 00:00 12/25/17 00:00 12/25/17 00:00 Intake and Output: 12/25/17 12/25/17 06:59 18:59 Intake Total 670 Output Total 300 Balance 370 - Medications Medications: Current Medications Acetylcysteine (Acetylcysteine 20%) 4 ml INH RQ6 [facility] Last Admin: 12/25/17 01:45 Dose: 4 ml Albuterol/Ipratropium (Duoneb 3 Mg/0.5 Mg (3 Ml) Ud) 3 ml INH RQ6 [facility] Last Admin: 12/25/17 01:45 Dose: 3 ml Aspirin (Aspirin Chewable) 81 mg PEG DAILY [facility] Last Admin: 12/24/17 11:00 Dose: 81 mg Bethanechol Chloride (Urecholine) 50 mg PO TID [facility] Last Admin: 12/24/17 17:32 Dose: 50 mg Carvedilol (Coreg) 3.125 mg PEG BID [facility] Last Admin: 12/24/17 17:31 Dose: 3.125 mg Clopidogrel Bisulfate (Plavix) 75 mg PEG DAILY [facility] Last Admin: 12/24/17 11:00 Dose: 75 mg Enoxaparin Sodium (Lovenox) 40 mg SC DAILY [facility] Last Admin: 12/24/17 11:00 Dose: 40 mg Famotidine (Pepcid) 20 mg PEG DAILY [facility] Last Admin: 12/24/17 11:00 Dose: 20 mg Finasteride (Proscar) 5 mg PEG DAILY [facility] Last Admin: 12/24/17 11:00 Dose: 5 mg Levetiracetam (Keppra) 500 mg PEG BID [facility] Last Admin: 12/24/17 17:32 Dose: 500 mg Rosuvastatin Calcium (Crestor) 2.5 mg PEG HS [facility] Last Admin: 12/24/17 21:18 Dose: 2.5 mg Saccharomyces Boulardii (Florastor) 250 mg PEG DAILY [facility] Last Admin: 12/24/17 11:00 Dose: 250 mg Scopolamine (Transderm-Scop) 1 patch TD Q3D [facility] Last Admin: 12/23/17 10:57 Dose: 1 patch Tamsulosin HCl (Flomax) 0.4 mg PEG DAILY [facility] Last Admin: 12/24/17 11:00 Dose: 0.4 mg - Labs Labs: 12/21/17 11:11 12/21/17 11:11 PT 10.6 SECONDS (9.7-12.2) 11/24/15 14:10 INR 1.0 11/24/15 14:10 APTT 25 SECONDS (21-34) 11/24/15 14:10 - Additional Findings Additional findings: - Head Exam Head Exam: ATRAUMATIC, NORMAL INSPECTION - Eye Exam Eye Exam: absent: EOMI, Normal appearance - ENT Exam ENT Exam: Mucous Membranes Moist - Neck Exam Additional comments: Tracheostomy in place - Respiratory Exam Respiratory Exam:Rhonchi. absent: Clear to Ausculation Bilateral (excessive mucous production), Respiratory Distress - Cardiovascular Exam Cardiovascular Exam: REGULAR RHYTHM, +S1, +S2 - GI/Abdominal Exam GI & Abdominal Exam: Distended, Soft, Hypoactive Bowel Sounds. absent: Firm, Mass Additional comments: PEG in place - Extremities Exam Extremities Exam: absent: Pedal Edema - Neurological Exam Neurological Exam: Altered. absent: Alert, Awake, Oriented x3 - Psychiatric Exam Psychiatric exam: Altered (Patient is non-verbal from anoxic brain injury sustained on 05/2015). absent: Normal Affect, Normal Mood - Skin Skin Exam: Dry, Intact, Warm. Assessment and Plan - Assessment and Plan (Free Text) Plan: (1) Anoxic encephalopathy Assessment & Plan: * s/p cardiac arrest in 05/2015 * no acute changes in mental status. * Pt has non spontaneous movements. * patient is currently on 40cc/hr on tube feedings * via PEG * Aspirin 81mg daily * Plavix 75 mg daily * Keppra 500mg bid Status: Chronic (2) Acute Respiratory failure Assessment & Plan: * Trach in place, continue daily monitoring for secretions. No change in management at this time. * Continue with aggressive suctioning multiple times a day per respiratory therapist if secretions are thickened * Scopolamine 1 patch TD Q3D [facility] * Duoneb 3ml INH RQ6 * Acetylcysteine 4ml INH RQ6 * Most recent chest xray: * 09/28/17: no active disease. No significant interval change compared to. Status: Chronic (3) History of Recurrent UTIs Assessment & Plan: * ID consult: Dr. Armstrong --> help appreciated * Patient is afebrile, no apparent leukocytosis * Patient is off IV abx since 08/05/17 * patient has condom catheter and Bladder scan PRN to prevent urinary retention Status: Acute (4) History of Urinary retention Assessment & Plan: * Bethanecol 50mg PEG TID * Tamsulosin 0.4mg PEG QD * Bladder scan up to 3x a week to monitor residual urine * patient has had history of recurrent UTIs Status: Chronic (5) Hypokalemia Assessment & Plan: * Monitor and replete Status: Acute (6) History of Sacral ulcer Assessment & Plan: * Healed * Cont with offloading/cushioning/turning * Continue frequent turning, protective ointment and skin checks. Status: Resolved (7) History of coronary artery disease Assessment & Plan: * s/p cardiac stents on 06/13/15 * Cont ASA 81mg via PEG daily * Cont Coreg 3.125mg PEG BID * Cont Plavix 75 mg PEG daily * Rosuvastatin 2.5mg PO HS Status: Acute (8) History of Seizures Assessment & Plan: * Continue Keppra 500mg PEG BID for seizure prophylaxis * Monitor for activity Status: Chronic (9) Lower extremity edema Assessment & Plan: * Improved * SCDs in place * Pressure ulcer boots on b/l * Continue to monitor Status: Chronic (10) Prophylactic measure Assessment & Plan: * Pepcid 20 mg PEG BID * Lovenox 40mg SC daily * SCDs and offloading boots * Saccharomyces 250mg PEG QD * continue to turn and reposition q2hrs * Continue to monitor medication administrations and clinical presentation weekly labs. * vasoline ointment applied to feet prn to prevent hyperkeratos * Please hold feeding from 10pm-6am, placed into nursing communication * Vitamin A & D for lips Disposition: patient has prolonged hospitalization to multiple co-morbidities. per case management 10/08: unable to place patient. No updates at this time. Case DW Dr. Teresa Johnson PGY-1 <Jeison Moore - Last Filed: 12/30/17 20:52> Objective - Vital Signs/Intake and Output Vital Signs (last 24 hours): Temp Pulse Resp BP Pulse Ox 97.5 F L 77 20 99/68 L 98 12/30/17 15:53 12/30/17 15:53 12/30/17 15:53 12/30/17 15:53 12/30/17 15:53 Intake and Output: 12/30/17 12/31/17 18:59 06:59 Intake Total 570 Output Total 500 Balance 70 - Medications Medications: Current Medications Acetylcysteine (Acetylcysteine 20%) 4 ml INH RQ6 [facility] Last Admin: 12/30/17 19:06 Dose: 4 ml Albuterol/Ipratropium (Duoneb 3 Mg/0.5 Mg (3 Ml) Ud) 3 ml INH RQ6 [facility] Last Admin: 12/30/17 19:06 Dose: 3 ml Aspirin (Aspirin Chewable) 81 mg PEG DAILY [facility] Last Admin: 12/30/17 09:36 Dose: 81 mg Bethanechol Chloride (Urecholine) 50 mg PO TID [facility] Last Admin: 12/30/17 17:54 Dose: 50 mg Carvedilol (Coreg) 3.125 mg PEG BID [facility] Last Admin: 12/30/17 17:54 Dose: 3.125 mg Enoxaparin Sodium (Lovenox) 40 mg SC DAILY [facility] Last Admin: 12/30/17 09:37 Dose: 40 mg Famotidine (Pepcid) 20 mg PEG DAILY [facility] Last Admin: 12/30/17 09:38 Dose: 20 mg Finasteride (Proscar) 5 mg PEG DAILY [facility] Last Admin: 12/30/17 09:38 Dose: 5 mg Levetiracetam (Keppra) 500 mg PEG BID [facility] Last Admin: 12/30/17 17:54 Dose: 500 mg Rosuvastatin Calcium (Crestor) 2.5 mg PEG HS [facility] Last Admin: 12/29/17 21:28 Dose: 2.5 mg Saccharomyces Boulardii (Florastor) 250 mg PEG DAILY [facility] Last Admin: 12/30/17 09:37 Dose: 250 mg Scopolamine (Transderm-Scop) 1 patch TD Q3D [facility] Last Admin: 12/29/17 09:44 Dose: 1 patch Tamsulosin HCl (Flomax) 0.4 mg PEG DAILY [facility] Last Admin: 12/30/17 09:36 Dose: 0.4 mg - Labs Labs: 12/28/17 11:37 12/28/17 11:37 PT 10.6 SECONDS (9.7-12.2) 11/24/15 14:10 INR 1.0 11/24/15 14:10 APTT 25 SECONDS (21-34) 11/24/15 14:10 Attending/Attestation - Attestation I have personally seen and examined this patient.: Yes I have fully participated in the care of the patient.: Yes I have reviewed all pertinent clinical information, including history, physical exam and plan: Yes
[2017-12-25] MEDS: levETIRAcetam 100 mg/ml (5ml) Oral Syringe PEG SCH ×2 (09:59→18:00)
[2017-12-25] MEDS: Saccharomyces Boulardi 250 mg Cap PEG SCH (09:59)
[2017-12-25] MEDS: Enoxaparin 40 mg Syringe SC SCH (10:03)
[2017-12-25] MEDS: Rosuvastatin Calcium 2.5 mg Tab PEG SCH (22:00)
[2017-12-26] MEDS: Acetylcysteine 20% Inhal Soln (4ml) INH SCH ×4 (01:02→19:51)
[2017-12-26] MEDS: Albuterol-Ipratrop 3 mg / 0.5 (3 ml) UD INH SCH ×4 (01:02→19:52)
[2017-12-26] MEDS: Enoxaparin 40 mg Syringe SC SCH (10:43)
[2017-12-26] MEDS: Saccharomyces Boulardi 250 mg Cap PEG SCH (10:44)
[2017-12-26] MEDS: levETIRAcetam 100 mg/ml (5ml) Oral Syringe PEG SCH ×2 (10:45→17:45)
[2017-12-26] MEDS: Rosuvastatin Calcium 2.5 mg Tab PEG SCH (21:47)
[2017-12-27] MEDS: Albuterol-Ipratrop 3 mg / 0.5 (3 ml) UD INH SCH ×4 (01:12→19:59)
[2017-12-27] MEDS: Acetylcysteine 20% Inhal Soln (4ml) INH SCH ×4 (01:12→19:59)
[2017-12-27] MEDS: Enoxaparin 40 mg Syringe SC SCH (09:48)
[2017-12-27] MEDS: Saccharomyces Boulardi 250 mg Cap PEG SCH (09:49)
[2017-12-27] MEDS: levETIRAcetam 100 mg/ml (5ml) Oral Syringe PEG SCH ×2 (09:50→17:28)
[2017-12-27] MEDS: Rosuvastatin Calcium 2.5 mg Tab PEG SCH (21:09)
[2017-12-28] MEDS: Acetylcysteine 20% Inhal Soln (4ml) INH SCH ×4 (01:46→19:50)
[2017-12-28] MEDS: Albuterol-Ipratrop 3 mg / 0.5 (3 ml) UD INH SCH ×4 (01:46→19:50)
--- NOTE | 2017-12-28 07:51 | CP.PCM.PN ---
Subjective - Date & Time of Evaluation Date of Evaluation: 12/28/17 Time of Evaluation: 09:10 - Subjective Subjective: Medicine progress note for Dr. Chavis Patient seen and examined. Unable to obtain ROS due to anoxic brain injury from 2014. No acute events overnight. Objective - Vital Signs/Intake and Output Vital Signs (last 24 hours): Temp Pulse Resp BP Pulse Ox 98.1 F 65 20 121/81 100 12/27/17 23:45 12/27/17 23:45 12/27/17 23:45 12/27/17 23:45 12/27/17 23:45 Intake and Output: 12/28/17 12/28/17 06:59 18:59 Intake Total 1100 Output Total 400 Balance 700 - Medications Medications: Current Medications Acetylcysteine (Acetylcysteine 20%) 4 ml INH RQ6 [facility] Last Admin: 12/28/17 07:44 Dose: 4 ml Albuterol/Ipratropium (Duoneb 3 Mg/0.5 Mg (3 Ml) Ud) 3 ml INH RQ6 [facility] Last Admin: 12/28/17 07:44 Dose: 3 ml Aspirin (Aspirin Chewable) 81 mg PEG DAILY [facility] Last Admin: 12/27/17 09:49 Dose: 81 mg Bethanechol Chloride (Urecholine) 50 mg PO TID [facility] Last Admin: 12/27/17 17:29 Dose: 50 mg Carvedilol (Coreg) 3.125 mg PEG BID [facility] Last Admin: 12/27/17 17:27 Dose: 3.125 mg Clopidogrel Bisulfate (Plavix) 75 mg PEG DAILY [facility] Last Admin: 12/27/17 09:49 Dose: 75 mg Enoxaparin Sodium (Lovenox) 40 mg SC DAILY [facility] Last Admin: 12/27/17 09:48 Dose: 40 mg Famotidine (Pepcid) 20 mg PEG DAILY [facility] Last Admin: 12/27/17 09:49 Dose: 20 mg Finasteride (Proscar) 5 mg PEG DAILY [facility] Last Admin: 12/27/17 09:49 Dose: 5 mg Levetiracetam (Keppra) 500 mg PEG BID [facility] Last Admin: 12/27/17 17:28 Dose: 500 mg Rosuvastatin Calcium (Crestor) 2.5 mg PEG HS [facility] Last Admin: 12/27/17 21:09 Dose: 2.5 mg Saccharomyces Boulardii (Florastor) 250 mg PEG DAILY [facility] Last Admin: 12/27/17 09:49 Dose: 250 mg Scopolamine (Transderm-Scop) 1 patch TD Q3D [facility] Last Admin: 12/26/17 10:45 Dose: 1 patch Tamsulosin HCl (Flomax) 0.4 mg PEG DAILY [facility] Last Admin: 12/27/17 09:49 Dose: 0.4 mg - Labs Labs: 12/21/17 11:11 12/21/17 11:11 PT 10.6 SECONDS (9.7-12.2) 11/24/15 14:10 INR 1.0 11/24/15 14:10 APTT 25 SECONDS (21-34) 11/24/15 14:10 - Additional Findings Additional findings: - Head Exam Head Exam: ATRAUMATIC, NORMAL INSPECTION - Eye Exam Eye Exam: absent: EOMI, Normal appearance - ENT Exam ENT Exam: Mucous Membranes Moist - Neck Exam Additional comments: Tracheostomy in place - Respiratory Exam Respiratory Exam:Rhonchi. absent: Clear to Ausculation Bilateral (excessive mucous production), Respiratory Distress - Cardiovascular Exam Cardiovascular Exam: REGULAR RHYTHM, +S1, +S2 - GI/Abdominal Exam GI & Abdominal Exam: Distended, Soft, Hypoactive Bowel Sounds. absent: Firm, Mass Additional comments: PEG in place - Extremities Exam Extremities Exam: absent: Pedal Edema - Neurological Exam Neurological Exam: Altered. absent: Alert, Awake, Oriented x3 - Psychiatric Exam Psychiatric exam: Altered (Patient is non-verbal from anoxic brain injury sustained on 05/2015). absent: Normal Affect, Normal Mood - Skin Skin Exam: Dry, Intact, Warm. Assessment and Plan - Assessment and Plan (Free Text) Plan: (1) Anoxic encephalopathy Assessment & Plan: * s/p cardiac arrest in 05/2015 * no acute changes in mental status. * Pt has non spontaneous movements. * patient is currently on 40cc/hr on tube feedings * via PEG * Aspirin 81mg daily * Plavix 75 mg daily * Keppra 500mg bid Status: Chronic (2) Acute Respiratory failure Assessment & Plan: * Trach in place, continue daily monitoring for secretions. No change in management at this time. * Continue with aggressive suctioning multiple times a day per respiratory therapist if secretions are thickened * Scopolamine 1 patch TD Q3D [facility] * Duoneb 3ml INH RQ6 * Acetylcysteine 4ml INH RQ6 * Most recent chest xray: * 09/28/17: no active disease. No significant interval change compared to. Status: Chronic (3) History of Recurrent UTIs Assessment & Plan: * ID consult: Dr. Armstrong --> help appreciated * Patient is afebrile, no apparent leukocytosis * Patient is off IV abx since 08/05/17 * patient has condom catheter and Bladder scan PRN to prevent urinary retention Status: Acute (4) History of Urinary retention Assessment & Plan: * Bethanecol 50mg PEG TID * Tamsulosin 0.4mg PEG QD * Bladder scan up to 3x a week to monitor residual urine * patient has had history of recurrent UTIs Status: Chronic (5) Hypokalemia Assessment & Plan: * Monitor and replete Status: Acute (6) History of Sacral ulcer Assessment & Plan: * Healed * Cont with offloading/cushioning/turning * Continue frequent turning, protective ointment and skin checks. Status: Resolved (7) History of coronary artery disease Assessment & Plan: * s/p cardiac stents on 06/13/15 * Cont ASA 81mg via PEG daily * Cont Coreg 3.125mg PEG BID * Cont Plavix 75 mg PEG daily * Rosuvastatin 2.5mg PO HS Status: Acute (8) History of Seizures Assessment & Plan: * Continue Keppra 500mg PEG BID for seizure prophylaxis * Monitor for activity Status: Chronic (9) Lower extremity edema Assessment & Plan: * Improved * SCDs in place * Pressure ulcer boots on b/l * Continue to monitor Status: Chronic (10) Prophylactic measure Assessment & Plan: * Pepcid 20 mg PEG BID * Lovenox 40mg SC daily * SCDs and offloading boots * Saccharomyces 250mg PEG QD * continue to turn and reposition q2hrs * Continue to monitor medication administrations and clinical presentation weekly labs. * vasoline ointment applied to feet prn to prevent hyperkeratos * Please hold feeding from 10pm-6am, placed into nursing communication * Vitamin A & D for lips Disposition: Patient has prolonged hospitalization to multiple co-morbidities. per case management 10/08: unable to place patient. No changes at this time. Case DW Dr. Palmira Johnson PGY-1
[2017-12-28] MEDS: Saccharomyces Boulardi 250 mg Cap PEG SCH (10:05)
[2017-12-28] MEDS: Enoxaparin 40 mg Syringe SC SCH (10:05)
[2017-12-28] MEDS: levETIRAcetam 100 mg/ml (5ml) Oral Syringe PEG SCH ×2 (10:05→18:09)
[2017-12-28 12:06] LABS: BASO % 0.3 % (0.0-2.0); EOS # 0.3 K/uL (0.0-0.7); EOS % 3.1 % (0.0-4.0); HEMOGLOBIN 11.8 g/dL (12.0-18.0); LYMPH # 2.6 K/uL (1.0-4.3); LYMPH % 29.4 % (20.0-40.0); MEAN CELL VOLUME 87.6 fL (80.0-94.0); MEAN CORPUSCULAR HEMOGLOBIN 29.1 pg (27.0-31.0); MEAN CORPUSCULAR HGB CONC 33.2 g/dL (33.0-37.0); MEAN PLATELET VOLUME 9.3 fL (7.2-11.7); MONO # 0.8 K/uL (0.0-0.8); MONO % 8.7 % (0.0-10.0); NEUT # 5.1 K/uL (1.8-7.0); NEUT % 58.5 % (50.0-75.0); RBC 4.06 Mil/uL (4.40-5.90); RED CELL DISTRIBUTION WIDTH 14.6 % (11.5-14.5); WHITE BLOOD COUNT 8.8 K/uL (4.8-10.8)
[2017-12-28 12:32] LABS: ALB/GLOB RATIO 0.8 (1.0-2.1); ALBUMIN 3.5 g/dL (3.5-5.0); ALT/SGPT 46 U/L (21-72); AST/SGOT 28 U/L (17-59); BLOOD UREA NITROGEN 11 mg/dL (9-20); CALCIUM 8.6 mg/dl (8.6-10.4); GFR NON-AFRICAN AMERICAN > 60
[2017-12-28] MEDS: Rosuvastatin Calcium 2.5 mg Tab PEG SCH (21:14)
[2017-12-29] MEDS: Albuterol-Ipratrop 3 mg / 0.5 (3 ml) UD INH SCH ×4 (01:35→19:22)
[2017-12-29] MEDS: Acetylcysteine 20% Inhal Soln (4ml) INH SCH ×4 (01:35→19:22)
[2017-12-29] MEDS: Enoxaparin 40 mg Syringe SC SCH (09:43)
[2017-12-29] MEDS: Saccharomyces Boulardi 250 mg Cap PEG SCH (09:45)
[2017-12-29] MEDS: levETIRAcetam 100 mg/ml (5ml) Oral Syringe PEG SCH ×2 (09:45→17:08)
[2017-12-29] MEDS: Rosuvastatin Calcium 2.5 mg Tab PEG SCH (21:28)
[2017-12-30] MEDS: Albuterol-Ipratrop 3 mg / 0.5 (3 ml) UD INH SCH ×4 (01:50→19:06)
[2017-12-30] MEDS: Acetylcysteine 20% Inhal Soln (4ml) INH SCH ×4 (01:50→19:06)
--- NOTE | 2017-12-30 07:18 | CP.PCM.PN ---
Subjective - Date & Time of Evaluation Date of Evaluation: 12/30/17 Time of Evaluation: 09:00 - Subjective Subjective: Medicine progress note for Dr. Chavis Patient seen and examined. Cannot obtain ROS due to anoxic brain injury from 2014. No acute events overnight. Objective - Vital Signs/Intake and Output Vital Signs (last 24 hours): Temp Pulse Resp BP Pulse Ox 98.6 F 85 20 121/71 100 12/30/17 00:00 12/30/17 00:00 12/30/17 00:00 12/30/17 00:00 12/30/17 00:00 - Medications Medications: Current Medications Acetylcysteine (Acetylcysteine 20%) 4 ml INH RQ6 [facility] Last Admin: 12/30/17 01:50 Dose: 4 ml Albuterol/Ipratropium (Duoneb 3 Mg/0.5 Mg (3 Ml) Ud) 3 ml INH RQ6 [facility] Last Admin: 12/30/17 01:50 Dose: 3 ml Aspirin (Aspirin Chewable) 81 mg PEG DAILY [facility] Last Admin: 12/29/17 09:44 Dose: 81 mg Bethanechol Chloride (Urecholine) 50 mg PO TID [facility] Last Admin: 12/29/17 17:07 Dose: 50 mg Carvedilol (Coreg) 3.125 mg PEG BID [facility] Last Admin: 12/29/17 17:08 Dose: 3.125 mg Clopidogrel Bisulfate (Plavix) 75 mg PEG DAILY [facility] Last Admin: 12/29/17 09:45 Dose: 75 mg Enoxaparin Sodium (Lovenox) 40 mg SC DAILY [facility] Last Admin: 12/29/17 09:43 Dose: 40 mg Famotidine (Pepcid) 20 mg PEG DAILY [facility] Last Admin: 12/29/17 09:45 Dose: 20 mg Finasteride (Proscar) 5 mg PEG DAILY [facility] Last Admin: 12/29/17 09:45 Dose: 5 mg Levetiracetam (Keppra) 500 mg PEG BID [facility] Last Admin: 12/29/17 17:08 Dose: 500 mg Rosuvastatin Calcium (Crestor) 2.5 mg PEG HS [facility] Last Admin: 12/29/17 21:28 Dose: 2.5 mg Saccharomyces Boulardii (Florastor) 250 mg PEG DAILY [facility] Last Admin: 12/29/17 09:45 Dose: 250 mg Scopolamine (Transderm-Scop) 1 patch TD Q3D [facility] Last Admin: 12/29/17 09:44 Dose: 1 patch Tamsulosin HCl (Flomax) 0.4 mg PEG DAILY [facility] Last Admin: 12/29/17 09:45 Dose: 0.4 mg - Labs Labs: 12/28/17 11:37 12/28/17 11:37 PT 10.6 SECONDS (9.7-12.2) 11/24/15 14:10 INR 1.0 11/24/15 14:10 APTT 25 SECONDS (21-34) 11/24/15 14:10 - Additional Findings Additional findings: - Head Exam Head Exam: ATRAUMATIC, NORMAL INSPECTION - Eye Exam Eye Exam: absent: EOMI, Normal appearance - ENT Exam ENT Exam: Mucous Membranes Moist - Neck Exam Additional comments: Tracheostomy in place - Respiratory Exam Respiratory Exam:Rhonchi. absent: Clear to Ausculation Bilateral (excessive mucous production), Respiratory Distress - Cardiovascular Exam Cardiovascular Exam: REGULAR RHYTHM, +S1, +S2 - GI/Abdominal Exam GI & Abdominal Exam: Distended, Soft, Hypoactive Bowel Sounds. absent: Firm, Mass Additional comments: PEG in place - Extremities Exam Extremities Exam: absent: Pedal Edema - Neurological Exam Neurological Exam: Altered. absent: Alert, Awake, Oriented x3 - Psychiatric Exam Psychiatric exam: Altered (Patient is non-verbal from anoxic brain injury sustained on 05/2015). absent: Normal Affect, Normal Mood - Skin Skin Exam: Dry, Intact, Warm. Assessment and Plan - Assessment and Plan (Free Text) Plan: (1) Anoxic encephalopathy Assessment & Plan: * s/p cardiac arrest in 05/2015 * no acute changes in mental status. * Pt has non spontaneous movements. * patient is currently on 40cc/hr on tube feedings * via PEG * Aspirin 81mg daily * Plavix 75 mg daily * Keppra 500mg bid Status: Chronic (2) Acute Respiratory failure Assessment & Plan: * Trach in place, continue daily monitoring for secretions. No change in management at this time. * Continue with aggressive suctioning multiple times a day per respiratory therapist if secretions are thickened * Scopolamine 1 patch TD Q3D [facility] * Duoneb 3ml INH RQ6 * Acetylcysteine 4ml INH RQ6 * Most recent chest xray: * 09/28/17: no active disease. No significant interval change compared to. Status: Chronic (3) History of Recurrent UTIs Assessment & Plan: * ID consult: Dr. Armstrong --> help appreciated * Patient is afebrile, no apparent leukocytosis * Patient is off IV abx since 08/05/17 * patient has condom catheter and Bladder scan PRN to prevent urinary retention Status: Acute (4) History of Urinary retention Assessment & Plan: * Bethanecol 50mg PEG TID * Tamsulosin 0.4mg PEG QD * Bladder scan up to 3x a week to monitor residual urine * patient has had history of recurrent UTIs Status: Chronic (5) Hypokalemia Assessment & Plan: * Monitor and replete Status: Acute (6) History of Sacral ulcer Assessment & Plan: * Healed * Cont with offloading/cushioning/turning * Continue frequent turning, protective ointment and skin checks. Status: Resolved (7) History of coronary artery disease Assessment & Plan: * s/p cardiac stents on 06/13/15 * Cont ASA 81mg via PEG daily * Cont Coreg 3.125mg PEG BID * Cont Plavix 75 mg PEG daily * Rosuvastatin 2.5mg PO HS Status: Acute (8) History of Seizures Assessment & Plan: * Continue Keppra 500mg PEG BID for seizure prophylaxis * Monitor for activity Status: Chronic (9) Lower extremity edema Assessment & Plan: * Improved * SCDs in place * Pressure ulcer boots on b/l * Continue to monitor Status: Chronic (10) Prophylactic measure Assessment & Plan: * Pepcid 20 mg PEG BID * Lovenox 40mg SC daily * SCDs and offloading boots * Saccharomyces 250mg PEG QD * continue to turn and reposition q2hrs * Continue to monitor medication administrations and clinical presentation weekly labs. * vasoline ointment applied to feet prn to prevent hyperkeratos * Please hold feeding from 10pm-6am, placed into nursing communication * Vitamin A & D for lips Disposition: Patient has prolonged hospitalization to multiple co-morbidities. per case management 10/08: unable to place patient. No changes at this time. Case DW Dr. Palmira Johnson PGY-1
[2017-12-30] MEDS: Saccharomyces Boulardi 250 mg Cap PEG SCH (09:37)
[2017-12-30] MEDS: levETIRAcetam 100 mg/ml (5ml) Oral Syringe PEG SCH ×2 (09:37→17:54)
[2017-12-30] MEDS: Enoxaparin 40 mg Syringe SC SCH (09:37)
[2017-12-30] MEDS: Rosuvastatin Calcium 2.5 mg Tab PEG SCH (21:33)
[2017-12-31] MEDS: Acetylcysteine 20% Inhal Soln (4ml) INH SCH ×4 (01:40→19:55)
[2017-12-31] MEDS: Albuterol-Ipratrop 3 mg / 0.5 (3 ml) UD INH SCH ×4 (01:40→19:55)
[2017-12-31] MEDS: levETIRAcetam 100 mg/ml (5ml) Oral Syringe PEG SCH ×2 (09:56→18:31)
[2017-12-31] MEDS: Enoxaparin 40 mg Syringe SC SCH (10:01)
[2017-12-31] MEDS: Saccharomyces Boulardi 250 mg Cap PEG SCH (10:01)
[2017-12-31] MEDS: Rosuvastatin Calcium 2.5 mg Tab PEG SCH (22:09)
[2018-01-01] MEDS: Albuterol-Ipratrop 3 mg / 0.5 (3 ml) UD INH SCH ×4 (01:30→21:17)
[2018-01-01] MEDS: Acetylcysteine 20% Inhal Soln (4ml) INH SCH ×4 (01:30→21:17)
--- NOTE | 2018-01-01 07:52 | CP.PCM.PN ---
Subjective - Date & Time of Evaluation Date of Evaluation: 01/01/18 Time of Evaluation: 09:10 - Subjective Subjective: Medicine progress note for Dr. Chavis Patient seen and examined. Unable to obtain ROS due to anoxic brain injury from 2014. No acute events overnight. Objective - Vital Signs/Intake and Output Vital Signs (last 24 hours): Temp Pulse Resp BP Pulse Ox 97.6 F 88 20 112/66 97 01/01/18 07:25 01/01/18 07:25 01/01/18 07:25 01/01/18 07:25 01/01/18 07:25 Intake and Output: 01/01/18 01/01/18 06:59 18:59 Intake Total 1200 Output Total 50 Balance 1150 - Medications Medications: Current Medications Acetylcysteine (Acetylcysteine 20%) 4 ml INH RQ6 [facility] Last Admin: 01/01/18 07:33 Dose: 4 ml Albuterol/Ipratropium (Duoneb 3 Mg/0.5 Mg (3 Ml) Ud) 3 ml INH RQ6 [facility] Last Admin: 01/01/18 07:33 Dose: 3 ml Aspirin (Aspirin Chewable) 81 mg PEG DAILY [facility] Last Admin: 12/31/17 09:58 Dose: 81 mg Bethanechol Chloride (Urecholine) 50 mg PO TID [facility] Last Admin: 12/31/17 17:25 Dose: 50 mg Carvedilol (Coreg) 3.125 mg PEG BID [facility] Last Admin: 12/31/17 17:25 Dose: Not Given Enoxaparin Sodium (Lovenox) 40 mg SC DAILY [facility] Last Admin: 12/31/17 10:01 Dose: 40 mg Famotidine (Pepcid) 20 mg PEG DAILY [facility] Last Admin: 12/31/17 09:55 Dose: 20 mg Finasteride (Proscar) 5 mg PEG DAILY [facility] Last Admin: 12/31/17 09:55 Dose: 5 mg Levetiracetam (Keppra) 500 mg PEG BID [facility] Last Admin: 12/31/17 18:31 Dose: 500 mg Rosuvastatin Calcium (Crestor) 2.5 mg PEG HS [facility] Last Admin: 12/31/17 22:09 Dose: 2.5 mg Saccharomyces Boulardii (Florastor) 250 mg PEG DAILY [facility] Last Admin: 12/31/17 10:01 Dose: 250 mg Scopolamine (Transderm-Scop) 1 patch TD Q3D [facility] Last Admin: 12/29/17 09:44 Dose: 1 patch Tamsulosin HCl (Flomax) 0.4 mg PEG DAILY [facility] Last Admin: 12/31/17 09:56 Dose: 0.4 mg - Labs Labs: 12/28/17 11:37 12/28/17 11:37 PT 10.6 SECONDS (9.7-12.2) 11/24/15 14:10 INR 1.0 11/24/15 14:10 APTT 25 SECONDS (21-34) 11/24/15 14:10 - Additional Findings Additional findings: - Head Exam Head Exam: ATRAUMATIC, NORMAL INSPECTION - Eye Exam Eye Exam: absent: EOMI, Normal appearance - ENT Exam ENT Exam: Mucous Membranes Moist - Neck Exam Additional comments: Tracheostomy in place - Respiratory Exam Respiratory Exam:Rhonchi. absent: Clear to Ausculation Bilateral (excessive mucous production), Respiratory Distress - Cardiovascular Exam Cardiovascular Exam: REGULAR RHYTHM, +S1, +S2 - GI/Abdominal Exam GI & Abdominal Exam: Distended, Soft, Hypoactive Bowel Sounds. absent: Firm, Mass Additional comments: PEG in place - Extremities Exam Extremities Exam: absent: Pedal Edema - Neurological Exam Neurological Exam: Altered. absent: Alert, Awake, Oriented x3 - Psychiatric Exam Psychiatric exam: Altered (Patient is non-verbal from anoxic brain injury sustained on 05/2015). absent: Normal Affect, Normal Mood - Skin Skin Exam: Dry, Intact, Warm. Assessment and Plan - Assessment and Plan (Free Text) Plan: (1) Anoxic encephalopathy Assessment & Plan: * s/p cardiac arrest in 05/2015 * no acute changes in mental status. * Pt has non spontaneous movements. * patient is currently on 40cc/hr on tube feedings * via PEG * Aspirin 81mg daily * Plavix 75 mg daily * Keppra 500mg bid Status: Chronic (2) Acute Respiratory failure Assessment & Plan: * Trach in place, continue daily monitoring for secretions. No change in management at this time. * Continue with aggressive suctioning multiple times a day per respiratory therapist if secretions are thickened * Scopolamine 1 patch TD Q3D JOO * Duoneb 3ml INH RQ6 * Acetylcysteine 4ml INH RQ6 * Most recent chest xray: * 09/28/17: no active disease. No significant interval change compared to. Status: Chronic (3) History of Recurrent UTIs Assessment & Plan: * ID consult: Dr. Armstrong --> help appreciated * Patient is afebrile, no apparent leukocytosis * Patient is off IV abx since 08/05/17 * patient has condom catheter and Bladder scan PRN to prevent urinary retention Status: Acute (4) History of Urinary retention Assessment & Plan: * Bethanecol 50mg PEG TID * Tamsulosin 0.4mg PEG QD * Bladder scan up to 3x a week to monitor residual urine * patient has had history of recurrent UTIs Status: Chronic (5) Hypokalemia Assessment & Plan: * Monitor and replete Status: Acute (6) History of Sacral ulcer Assessment & Plan: * Healed * Cont with offloading/cushioning/turning * Continue frequent turning, protective ointment and skin checks. Status: Resolved (7) History of coronary artery disease Assessment & Plan: * s/p cardiac stents on 06/13/15 * Cont ASA 81mg via PEG daily * Cont Coreg 3.125mg PEG BID * Cont Plavix 75 mg PEG daily * Rosuvastatin 2.5mg PO HS Status: Acute (8) History of Seizures Assessment & Plan: * Continue Keppra 500mg PEG BID for seizure prophylaxis * Monitor for activity Status: Chronic (9) Lower extremity edema Assessment & Plan: * Improved * SCDs in place * Pressure ulcer boots on b/l * Continue to monitor Status: Chronic (10) Prophylactic measure Assessment & Plan: * Pepcid 20 mg PEG BID * Lovenox 40mg SC daily * SCDs and offloading boots * Saccharomyces 250mg PEG QD * continue to turn and reposition q2hrs * Continue to monitor medication administrations and clinical presentation weekly labs. * vasoline ointment applied to feet prn to prevent hyperkeratos * Please hold feeding from 10pm-6am, placed into nursing communication * Vitamin A & D for lips Disposition: Patient has prolonged hospitalization to multiple co-morbidities. per case management 10/08: unable to place patient. No changes at this time. Case DW Dr. Palmira Johnson PGY-1
[2018-01-01] MEDS: levETIRAcetam 100 mg/ml (5ml) Oral Syringe PEG SCH ×2 (10:02→17:19)
[2018-01-01] MEDS: Saccharomyces Boulardi 250 mg Cap PEG SCH (10:02)
[2018-01-01] MEDS: Enoxaparin 40 mg Syringe SC SCH (10:03)
[2018-01-01] MEDS: Rosuvastatin Calcium 2.5 mg Tab PEG SCH (21:03)
[2018-01-02] MEDS: Acetylcysteine 20% Inhal Soln (4ml) INH SCH ×4 (02:00→19:35)
[2018-01-02] MEDS: Albuterol-Ipratrop 3 mg / 0.5 (3 ml) UD INH SCH ×4 (02:00→19:36)
[2018-01-02] MEDS: Saccharomyces Boulardi 250 mg Cap PEG SCH (10:32)
[2018-01-02] MEDS: levETIRAcetam 100 mg/ml (5ml) Oral Syringe PEG SCH ×2 (10:32→17:40)
[2018-01-02] MEDS: Enoxaparin 40 mg Syringe SC SCH (10:33)
[2018-01-02] MEDS: Rosuvastatin Calcium 2.5 mg Tab PEG SCH (21:14)
[2018-01-03] MEDS: Albuterol-Ipratrop 3 mg / 0.5 (3 ml) UD INH SCH ×4 (01:35→21:02)
[2018-01-03] MEDS: Acetylcysteine 20% Inhal Soln (4ml) INH SCH ×4 (01:35→21:02)
[2018-01-03] MEDS: levETIRAcetam 100 mg/ml (5ml) Oral Syringe PEG SCH ×2 (10:54→17:35)
[2018-01-03] MEDS: Saccharomyces Boulardi 250 mg Cap PEG SCH (10:54)
[2018-01-03] MEDS: Enoxaparin 40 mg Syringe SC SCH (10:54)
[2018-01-03] MEDS: Rosuvastatin Calcium 2.5 mg Tab PEG SCH (21:17)
[2018-01-04] MEDS: Albuterol-Ipratrop 3 mg / 0.5 (3 ml) UD INH SCH ×3 (01:26→19:35)
[2018-01-04] MEDS: Acetylcysteine 20% Inhal Soln (4ml) INH SCH ×3 (01:27→19:36)
[2018-01-04] MEDS: Enoxaparin 40 mg Syringe SC SCH (10:04)
[2018-01-04] MEDS: levETIRAcetam 100 mg/ml (5ml) Oral Syringe PEG SCH ×2 (10:05→18:12)
[2018-01-04] MEDS: Saccharomyces Boulardi 250 mg Cap PEG SCH (10:19)
[2018-01-04 12:28] LABS: ALB/GLOB RATIO 0.8 (1.0-2.1); ALBUMIN 3.5 g/dL (3.5-5.0); ALT/SGPT 40 U/L (21-72); AST/SGOT 37 U/L (17-59); BLOOD UREA NITROGEN 10 mg/dL (9-20); CALCIUM 8.6 mg/dl (8.6-10.4); GFR NON-AFRICAN AMERICAN > 60
--- NOTE | 2018-01-04 16:43 | CP.PCM.PN ---
<Judith Martinez - Last Filed: 01/04/18 16:42> Subjective - Date & Time of Evaluation Date of Evaluation: 01/04/18 Time of Evaluation: 08:30 - Subjective Subjective: Patient seen and examined. No acute events overnight. Unable to obtain ROS due to anoxic brain injury. Objective - Vital Signs/Intake and Output Vital Signs (last 24 hours): Temp Pulse Resp BP Pulse Ox 98.0 F 56 L 20 114/69 100 01/04/18 16:38 01/04/18 16:38 01/04/18 16:38 01/04/18 16:38 01/04/18 16:38 Intake and Output: 01/04/18 01/04/18 06:59 18:59 Intake Total 1150 570 Output Total 900 700 Balance 250 -130 - Medications Medications: Current Medications Acetylcysteine (Acetylcysteine 20%) 4 ml INH RQ6 [facility] Last Admin: 01/04/18 13:05 Dose: 4 ml Albuterol/Ipratropium (Duoneb 3 Mg/0.5 Mg (3 Ml) Ud) 3 ml INH RQ6 [facility] Last Admin: 01/04/18 13:05 Dose: 3 ml Aspirin (Aspirin Chewable) 81 mg PEG DAILY [facility] Last Admin: 01/04/18 10:05 Dose: 81 mg Carvedilol (Coreg) 3.125 mg PEG BID [facility] Last Admin: 01/04/18 10:05 Dose: 3.125 mg Enoxaparin Sodium (Lovenox) 40 mg SC DAILY [facility] Last Admin: 01/04/18 10:04 Dose: 40 mg Famotidine (Pepcid) 20 mg PEG DAILY [facility] Last Admin: 01/04/18 10:05 Dose: 20 mg Finasteride (Proscar) 5 mg PEG DAILY [facility] Last Admin: 01/04/18 10:05 Dose: 5 mg Levetiracetam (Keppra) 500 mg PEG BID [facility] Last Admin: 01/04/18 10:05 Dose: 500 mg Rosuvastatin Calcium (Crestor) 2.5 mg PEG HS [facility] Last Admin: 01/03/18 21:17 Dose: 2.5 mg Saccharomyces Boulardii (Florastor) 250 mg PEG DAILY [facility] Last Admin: 01/04/18 10:19 Dose: 250 mg Scopolamine (Transderm-Scop) 1 patch TD Q3D [facility] Last Admin: 01/04/18 12:21 Dose: 1 patch Tamsulosin HCl (Flomax) 0.4 mg PEG DAILY [facility] Last Admin: 01/04/18 10:05 Dose: 0.4 mg - Labs Labs: 12/28/17 11:37 01/04/18 11:46 PT 10.6 SECONDS (9.7-12.2) 11/24/15 14:10 INR 1.0 11/24/15 14:10 APTT 25 SECONDS (21-34) 11/24/15 14:10 - Additional Findings Additional findings: - Head Exam Head Exam: ATRAUMATIC, NORMAL INSPECTION - Eye Exam Eye Exam: absent: EOMI, Normal appearance - ENT Exam ENT Exam: Mucous Membranes Moist - Neck Exam Additional comments: Tracheostomy in place - Respiratory Exam Respiratory Exam:Rhonchi. absent: Clear to Ausculation Bilateral (excessive mucous production), Respiratory Distress - Cardiovascular Exam Cardiovascular Exam: REGULAR RHYTHM, +S1, +S2 - GI/Abdominal Exam GI & Abdominal Exam: Distended, Soft, Hypoactive Bowel Sounds. absent: Firm, Mass Additional comments: PEG in place - Extremities Exam Extremities Exam: absent: Pedal Edema - Neurological Exam Neurological Exam: Altered. absent: Alert, Awake, Oriented x3 - Psychiatric Exam Psychiatric exam: Altered (Patient is non-verbal from anoxic brain injury sustained on 05/2015). absent: Normal Affect, Normal Mood - Skin Skin Exam: Dry, Intact, Warm. Assessment and Plan - Assessment and Plan (Free Text) Plan: (1) Anoxic encephalopathy Assessment & Plan: * s/p cardiac arrest in 05/2015 * no acute changes in mental status. * Pt has non spontaneous movements. * patient is currently on 40cc/hr on tube feedings * via PEG * Aspirin 81mg daily * Plavix 75 mg daily * Keppra 500mg bid Status: Chronic (2) Acute Respiratory failure Assessment & Plan: * Trach in place, continue daily monitoring for secretions. No change in management at this time. * Continue with aggressive suctioning multiple times a day per respiratory therapist if secretions are thickened * Scopolamine 1 patch TD Q3D JOO * Duoneb 3ml INH RQ6 * Acetylcysteine 4ml INH RQ6 * Most recent chest xray: * 09/28/17: no active disease. No significant interval change compared to. Status: Chronic (3) History of Recurrent UTIs Assessment & Plan: * ID consult: Dr. Armstrong --> help appreciated * Patient is afebrile, no apparent leukocytosis * Patient is off IV abx since 08/05/17 * patient has condom catheter and Bladder scan PRN to prevent urinary retention Status: Acute (4) History of Urinary retention Assessment & Plan: * Bethanecol 50mg PEG TID * Tamsulosin 0.4mg PEG QD * Bladder scan up to 3x a week to monitor residual urine * patient has had history of recurrent UTIs Status: Chronic (5) Hypokalemia Assessment & Plan: * Monitor and replete Status: Acute (6) History of Sacral ulcer Assessment & Plan: * Healed * Cont with offloading/cushioning/turning * Continue frequent turning, protective ointment and skin checks. Status: Resolved (7) History of coronary artery disease Assessment & Plan: * s/p cardiac stents on 06/13/15 * Cont ASA 81mg via PEG daily * Cont Coreg 3.125mg PEG BID * Cont Plavix 75 mg PEG daily * Rosuvastatin 2.5mg PO HS Status: Acute (8) History of Seizures Assessment & Plan: * Continue Keppra 500mg PEG BID for seizure prophylaxis * Monitor for activity Status: Chronic (9) Lower extremity edema Assessment & Plan: * Improved * SCDs in place * Pressure ulcer boots on b/l * Continue to monitor Status: Chronic (10) Prophylactic measure Assessment & Plan: * Pepcid 20 mg PEG BID * Lovenox 40mg SC daily * SCDs and offloading boots * Saccharomyces 250mg PEG QD * continue to turn and reposition q2hrs * Continue to monitor medication administrations and clinical presentation weekly labs. * vasoline ointment applied to feet prn to prevent hyperkeratos * Please hold feeding from 10pm-6am, placed into nursing communication * Vitamin A & D for lips Disposition: Patient has prolonged hospitalization to multiple co-morbidities. per case management 10/08: unable to place patient. No changes at this time. <Jeison Moore - Last Filed: 01/05/18 16:20> Objective - Vital Signs/Intake and Output Vital Signs (last 24 hours): Temp Pulse Resp BP Pulse Ox 98.5 F 90 20 95/59 L 100 01/05/18 08:32 01/05/18 08:32 02/13/18 08:32 01/05/18 08:32 01/05/18 08:32 Intake and Output: 01/05/18 01/05/18 06:59 18:59 Intake Total 1400 570 Output Total 200 750 Balance 1200 -180 - Medications Medications: Current Medications Acetylcysteine (Acetylcysteine 20%) 4 ml INH RQ6 [facility] Last Admin: 01/05/18 14:14 Dose: 4 ml Albuterol/Ipratropium (Duoneb 3 Mg/0.5 Mg (3 Ml) Ud) 3 ml INH RQ6 [facility] Last Admin: 01/05/18 14:14 Dose: 3 ml Aspirin (Aspirin Chewable) 81 mg PEG DAILY [facility] Last Admin: 01/05/18 10:08 Dose: 81 mg Carvedilol (Coreg) 3.125 mg PEG BID [facility] Last Admin: 01/05/18 10:08 Dose: Not Given Enoxaparin Sodium (Lovenox) 40 mg SC DAILY [facility] Last Admin: 01/05/18 10:06 Dose: 40 mg Famotidine (Pepcid) 20 mg PEG DAILY [facility] Last Admin: 01/05/18 10:08 Dose: 20 mg Finasteride (Proscar) 5 mg PEG DAILY [facility] Last Admin: 01/05/18 10:08 Dose: 5 mg Levetiracetam (Keppra) 500 mg PEG BID [facility] Last Admin: 01/05/18 10:07 Dose: 500 mg Rosuvastatin Calcium (Crestor) 2.5 mg PEG HS [facility] Last Admin: 01/04/18 21:44 Dose: 2.5 mg Saccharomyces Boulardii (Florastor) 250 mg PEG DAILY [facility] Last Admin: 01/05/18 10:00 Dose: Not Given Scopolamine (Transderm-Scop) 1 patch TD Q3D [facility] Last Admin: 01/04/18 12:21 Dose: 1 patch Tamsulosin HCl (Flomax) 0.4 mg PEG DAILY [facility] Last Admin: 01/05/18 10:08 Dose: 0.4 mg - Labs Labs: 01/05/18 11:38 01/05/18 11:38 PT 10.6 SECONDS (9.7-12.2) 11/24/15 14:10 INR 1.0 11/24/15 14:10 APTT 25 SECONDS (21-34) 11/24/15 14:10 Attending/Attestation - Attestation I have personally seen and examined this patient.: No I have fully participated in the care of the patient.: Yes I have reviewed all pertinent clinical information, including history, physical exam and plan: Yes
[2018-01-04] MEDS: Rosuvastatin Calcium 2.5 mg Tab PEG SCH (21:44)
[2018-01-05] MEDS: Acetylcysteine 20% Inhal Soln (4ml) INH SCH ×4 (01:50→20:43)
[2018-01-05] MEDS: Albuterol-Ipratrop 3 mg / 0.5 (3 ml) UD INH SCH ×4 (01:50→20:42)
[2018-01-05] MEDS: Saccharomyces Boulardi 250 mg Cap PEG SCH (10:00)
[2018-01-05] MEDS: Enoxaparin 40 mg Syringe SC SCH (10:06)
[2018-01-05] MEDS: levETIRAcetam 100 mg/ml (5ml) Oral Syringe PEG SCH ×2 (10:07→17:53)
[2018-01-05 11:49] LABS: BASO # 0.1 K/uL (0.0-0.2); BASO % 0.7 % (0.0-2.0); EOS # 0.4 K/uL (0.0-0.7); EOS % 3.7 % (0.0-4.0); HEMOGLOBIN 12.1 g/dL (12.0-18.0); LYMPH # 1.9 K/uL (1.0-4.3); LYMPH % 19.7 % (20.0-40.0); MEAN CORPUSCULAR HGB CONC 32.9 g/dL (33.0-37.0); MEAN PLATELET VOLUME 9.5 fL (7.2-11.7); MONO # 0.7 K/uL (0.0-0.8); MONO % 7.5 % (0.0-10.0); NEUT # 6.7 K/uL (1.8-7.0); NEUT % 68.4 % (50.0-75.0); RBC 4.17 Mil/uL (4.40-5.90); RED CELL DISTRIBUTION WIDTH 14.9 % (11.5-14.5); WHITE BLOOD COUNT 9.8 K/uL (4.8-10.8)
[2018-01-05 12:11] LABS: ALB/GLOB RATIO 0.9 (1.0-2.1); ALBUMIN 3.6 g/dL (3.5-5.0); ALT/SGPT 33 U/L (21-72); AST/SGOT 29 U/L (17-59); BLOOD UREA NITROGEN 9 mg/dL (9-20); CALCIUM 8.8 mg/dl (8.6-10.4); GFR NON-AFRICAN AMERICAN > 60
[2018-01-05] MEDS: Rosuvastatin Calcium 2.5 mg Tab PEG SCH (21:37)
[2018-01-06] MEDS: Acetylcysteine 20% Inhal Soln (4ml) INH SCH ×4 (02:37→19:57)
[2018-01-06] MEDS: Albuterol-Ipratrop 3 mg / 0.5 (3 ml) UD INH SCH ×4 (02:39→19:57)
--- NOTE | 2018-01-06 10:07 | CP.PCM.PN ---
<Judith Martinez - Last Filed: 01/06/18 13:57> Subjective - Date & Time of Evaluation Date of Evaluation: 01/06/18 Time of Evaluation: 10:05 - Subjective Subjective: Patient seen and examined at bedside. Patient's PEG tube was clogged overnight and patient cannot receive any of his meds or feeds via the tube, per nursing. Unable to obtain ROS due to anoxic brain injury. Objective - Vital Signs/Intake and Output Vital Signs (last 24 hours): Temp Pulse Resp BP Pulse Ox 97.5 F L 68 20 112/76 99 01/06/18 07:45 01/06/18 07:45 01/06/18 07:45 01/06/18 07:45 01/06/18 07:45 Intake and Output: 01/06/18 01/06/18 06:59 18:59 Intake Total 320 Output Total 650 Balance -330 - Medications Medications: Current Medications Acetylcysteine (Acetylcysteine 20%) 4 ml INH RQ6 [facility] Last Admin: 01/06/18 07:36 Dose: 4 ml Albuterol/Ipratropium (Duoneb 3 Mg/0.5 Mg (3 Ml) Ud) 3 ml INH RQ6 [facility] Last Admin: 01/06/18 07:36 Dose: 3 ml Aspirin (Aspirin Chewable) 81 mg PEG DAILY [facility] Last Admin: 01/05/18 10:08 Dose: 81 mg Carvedilol (Coreg) 3.125 mg PEG BID [facility] Last Admin: 01/05/18 17:53 Dose: 3.125 mg Enoxaparin Sodium (Lovenox) 40 mg SC DAILY [facility] Last Admin: 01/05/18 10:06 Dose: 40 mg Famotidine (Pepcid) 20 mg PEG DAILY [facility] Last Admin: 01/05/18 10:08 Dose: 20 mg Finasteride (Proscar) 5 mg PEG DAILY [facility] Last Admin: 01/05/18 10:08 Dose: 5 mg Levetiracetam (Keppra) 500 mg PEG BID [facility] Last Admin: 01/05/18 17:53 Dose: 500 mg Rosuvastatin Calcium (Crestor) 2.5 mg PEG HS [facility] Last Admin: 01/05/18 21:37 Dose: 2.5 mg Saccharomyces Boulardii (Florastor) 250 mg PEG DAILY [facility] Last Admin: 01/05/18 10:00 Dose: Not Given Scopolamine (Transderm-Scop) 1 patch TD Q3D [facility] Last Admin: 01/04/18 12:21 Dose: 1 patch Tamsulosin HCl (Flomax) 0.4 mg PEG DAILY [facility] Last Admin: 01/05/18 10:08 Dose: 0.4 mg - Labs Labs: 01/05/18 11:38 01/05/18 11:38 PT 10.6 SECONDS (9.7-12.2) 11/24/15 14:10 INR 1.0 11/24/15 14:10 APTT 25 SECONDS (21-34) 11/24/15 14:10 - Additional Findings Additional findings: - Head Exam Head Exam: ATRAUMATIC, NORMAL INSPECTION - Eye Exam Eye Exam: absent: EOMI, Normal appearance - ENT Exam ENT Exam: Mucous Membranes Moist - Neck Exam Additional comments: Tracheostomy in place - Respiratory Exam Respiratory Exam:Rhonchi. absent: Clear to Ausculation Bilateral (excessive mucous production), Respiratory Distress - Cardiovascular Exam Cardiovascular Exam: REGULAR RHYTHM, +S1, +S2 - GI/Abdominal Exam GI & Abdominal Exam: Distended, Soft, Hypoactive Bowel Sounds. absent: Firm, Mass Additional comments: PEG in place without erythema or swelling of surrounding skin - Extremities Exam Extremities Exam: absent: Pedal Edema - Neurological Exam Neurological Exam: Altered. absent: Alert, Awake, Oriented x3 - Psychiatric Exam Psychiatric exam: Altered (Patient is non-verbal from anoxic brain injury sustained on 05/2015). absent: Normal Affect, Normal Mood - Skin Skin Exam: Dry, Intact, Warm. Assessment and Plan - Assessment and Plan (Free Text) Plan: (1) Anoxic encephalopathy Assessment & Plan: * s/p cardiac arrest in 05/2015 * no acute changes in mental status. * Pt has non spontaneous movements. * patient is currently on 40cc/hr on tube feedings * via PEG * Aspirin 81mg daily * Plavix 75 mg daily * Keppra 500mg bid Status: Chronic (2) Acute Respiratory failure Assessment & Plan: * Trach in place, continue daily monitoring for secretions. No change in management at this time. * Continue with aggressive suctioning multiple times a day per respiratory therapist if secretions are thickened * Scopolamine 1 patch TD Q3D JOO * Duoneb 3ml INH RQ6 * Acetylcysteine 4ml INH RQ6 * Most recent chest xray: * 09/28/17: no active disease. No significant interval change compared to. Status: Chronic (3) History of Recurrent UTIs Assessment & Plan: * ID consult: Dr. Armstrong --> help appreciated * Patient is afebrile, no apparent leukocytosis * Patient is off IV abx since 08/05/17 * patient has condom catheter and Bladder scan PRN to prevent urinary retention Status: Acute (4) History of Urinary retention Assessment & Plan: * Bethanecol 50mg PEG TID * Tamsulosin 0.4mg PEG QD * Bladder scan up to 3x a week to monitor residual urine * patient has had history of recurrent UTIs Status: Chronic (5) Hypokalemia Assessment & Plan: * Monitor and replete Status: Acute (6) History of Sacral ulcer Assessment & Plan: * Healed * Cont with offloading/cushioning/turning * Continue frequent turning, protective ointment and skin checks. Status: Resolved (7) History of coronary artery disease Assessment & Plan: * s/p cardiac stents on 06/13/15 * Cont ASA 81mg via PEG daily * Cont Coreg 3.125mg PEG BID * Cont Plavix 75 mg PEG daily * Rosuvastatin 2.5mg PO HS Status: Acute (8) History of Seizures Assessment & Plan: * Continue Keppra 500mg PEG BID for seizure prophylaxis * Monitor for activity Status: Chronic (9) Lower extremity edema Assessment & Plan: * Improved * SCDs in place * Pressure ulcer boots on b/l * Continue to monitor Status: Chronic (10) Prophylactic measure Assessment & Plan: * Pepcid 20 mg PEG BID * Lovenox 40mg SC daily * SCDs and offloading boots * Saccharomyces 250mg PEG QD * continue to turn and reposition q2hrs * Continue to monitor medication administrations and clinical presentation weekly labs. * vasoline ointment applied to feet prn to prevent hyperkeratos * Please hold feeding from 10pm-6am, placed into nursing communication * Vitamin A & D for lips (11) PEG Tube dysfunction Assessment & Plan: * GI consulted, recs appreciated * For now will give Keppra IV and start D5 1/2NS @100 cc/h Disposition: Patient has prolonged hospitalization to multiple co-morbidities. per case management 10/08: unable to place patient. No changes at this time. <Jeison Moore - Last Filed: 01/07/18 15:18> Objective - Vital Signs/Intake and Output Vital Signs (last 24 hours): Temp Pulse Resp BP Pulse Ox 97.8 F 65 20 134/77 100 01/07/18 12:52 01/07/18 13:22 01/07/18 13:22 01/07/18 13:22 01/07/18 13:22 Intake and Output: 01/07/18 01/07/18 06:59 18:59 Intake Total 800 1375 Output Total 800 Balance 800 575 - Medications Medications: Current Medications Acetylcysteine (Acetylcysteine 20%) 4 ml INH RQ6 [facility] Last Admin: 01/07/18 13:53 Dose: Not Given Albuterol/Ipratropium (Duoneb 3 Mg/0.5 Mg (3 Ml) Ud) 3 ml INH RQ6 [facility] Last Admin: 01/07/18 13:53 Dose: Not Given Aspirin (Aspirin Chewable) 81 mg PEG DAILY [facility] Last Admin: 01/07/18 10:05 Dose: Not Given Carvedilol (Coreg) 3.125 mg PEG BID [facility] Last Admin: 01/07/18 10:05 Dose: Not Given Enoxaparin Sodium (Lovenox) 40 mg SC DAILY [facility] Last Admin: 01/07/18 10:07 Dose: Not Given Famotidine (Pepcid) 20 mg PEG DAILY [facility] Last Admin: 01/07/18 10:07 Dose: Not Given Finasteride (Proscar) 5 mg PEG DAILY [facility] Last Admin: 01/07/18 10:07 Dose: Not Given Dextrose/Sodium Chloride (Dextrose 5%/0.45% Ns 1000 Ml) 1,000 mls @ 100 mls/hr IV .Q10H [facility] Last Admin: 01/07/18 07:45 Dose: Not Given Levetiracetam 500 mg/ Sodium (Chloride) 105 mls @ 420 mls/hr IVPB Q12H [facility] Last Admin: 01/07/18 12:15 Dose: Not Given Lactated Ringer's (Lactated Ringer's 500ml) 500 mls @ 75 mls/hr IV .Q6H40M [facility] Last Admin: 01/07/18 13:35 Dose: 75 mls/hr Levetiracetam (Keppra) 500 mg PEG BID [facility] Last Admin: 01/06/18 11:00 Dose: Not Given Rosuvastatin Calcium (Crestor) 2.5 mg PEG HS [facility] Last Admin: 01/06/18 22:24 Dose: Not Given Saccharomyces Boulardii (Florastor) 250 mg PEG DAILY [facility] Last Admin: 01/07/18 10:06 Dose: Not Given Scopolamine (Transderm-Scop) 1 patch TD Q3D [facility] Last Admin: 01/07/18 10:34 Dose: 1 patch Tamsulosin HCl (Flomax) 0.4 mg PEG DAILY [facility] Last Admin: 01/07/18 10:06 Dose: Not Given - Labs Labs: 01/05/18 11:38 01/05/18 11:38 PT 10.6 SECONDS (9.7-12.2) 11/24/15 14:10 INR 1.0 11/24/15 14:10 APTT 25 SECONDS (21-34) 11/24/15 14:10 Attending/Attestation - Attestation I have personally seen and examined this patient.: Yes I have fully participated in the care of the patient.: Yes I have reviewed all pertinent clinical information, including history, physical exam and plan: Yes Notes (Text): Seen and examined No distress getting IV hydration going for PEG replacement d/w the resident I agree with the assessment and the plan of the resident 01/07/18 15:17
[2018-01-06] MEDS: levETIRAcetam 100 mg/ml (5ml) Oral Syringe PEG SCH (11:00)
[2018-01-06] MEDS: Saccharomyces Boulardi 250 mg Cap PEG SCH (11:00)
[2018-01-06] MEDS: Enoxaparin 40 mg Syringe SC SCH (11:00)
[2018-01-06] MEDS: levETIRAcetam 500 MG in Sodium Chloride 0.9% 100 ML IVPB SCH (13:00)
[2018-01-06] MEDS: Dextrose 5%/0.45% NS 1,000 ML IV SCH ×3 (13:22→22:25)
[2018-01-06] MEDS: Rosuvastatin Calcium 2.5 mg Tab PEG SCH (22:24)
[2018-01-07] MEDS: Acetylcysteine 20% Inhal Soln (4ml) INH SCH ×4 (02:01→21:00)
[2018-01-07] MEDS: Albuterol-Ipratrop 3 mg / 0.5 (3 ml) UD INH SCH ×4 (02:02→21:00)
[2018-01-07] MEDS: Dextrose 5%/0.45% NS 1,000 ML IV SCH ×2 (02:20→07:45)
[2018-01-07] MEDS: Saccharomyces Boulardi 250 mg Cap PEG SCH (10:06)
[2018-01-07] MEDS: Enoxaparin 40 mg Syringe SC SCH (10:07)
[2018-01-07] MEDS: levETIRAcetam 500 MG in Sodium Chloride 0.9% 100 ML IVPB SCH ×3 (12:15→23:45)
[2018-01-07] MEDS: Lactated Ringer's 500 ML IV SCH ×2 (13:35→19:55)
[2018-01-07] MEDS: Rosuvastatin Calcium 2.5 mg Tab PEG SCH (21:17)
[2018-01-08] MEDS: Albuterol-Ipratrop 3 mg / 0.5 (3 ml) UD INH SCH ×4 (01:42→20:04)
[2018-01-08] MEDS: Lactated Ringer's 500 ML IV SCH (03:34)
--- NOTE | 2018-01-08 06:33 | CON ---
DATE: 01/06/2018 REASON FOR CONSULTATION: I was called for GI consultation by the admitting medical team. The patient was seen and examined for GI consultation on 01/06/2018. Case was discussed with the staff at length as well as the patient and daughter. HISTORY OF PRESENT ILLNESS: This is a 64-year-old male with multiple complicated past medical history who was admitted to the hospital through the emergency room after was found to be unconscious. He was treated with full code at that time initially. Subsequently, the patient with change of mental status, received PEG insertion before, but became nonverbal. Recently his PEG tube was malfunctioned for which I was called for reevaluation and PEG tube change. PAST MEDICAL HISTORY: Including but not limited to, cardiopulmonary arrest, dysphagia, status post tracheostomy to vent, status post PEG tube insertion, malfunction, hypertension with cardiac arrhythmias. The patient recently was found to have low hemoglobin and hematocrit with increased BUN and creatinine indicative of dehydration as well as mild renal insufficiency. PHYSICAL EXAMINATION: GENERAL: A 64-year-old male, non-verbal on trach vent. VITAL SIGNS: Afebrile with pulse of 74 and blood pressure 134/70. HEENT: Showed pale, dry oral mucous membranes. Nonicteric sclerae. Patient was on tracheostomy. LYMPH NODES: No lymphadenitis or lymphadenopathy. LUNGS: Clear to auscultation. Decreased air entry at bases. HEART: S1 and S2. ABDOMEN: Soft with mild distention. The previously inserted PEG tube is in place, was resistant but without any evidence of PEG tube bleeding. EXTREMITIES: Lower extremities mild edematous changes. No clubbing or cyanosis, but decreased peripheral pulses bilaterally. No new reported neurological deficit. sensory or motor. ASSESSMENT: 1. Dysphagia with malnutrition. 2. PEG tube malfunction. 3. Status post cardiopulmonary arrest by history. 4. Electrolyte imbalance with hypokalemia before as well as hyperglycemia. 5. Mild anemia. 6. No reported neurological deficits, sensory or motor. IMPRESSION: 1. PEG tube malfunction. 2. Malnutrition. 3. Dysphagia. 4. Status post tracheostomy. 5. Status post cardiopulmonary arrest. SUGGESTIONS: 1. Agree with your plan. 2. Prefer hyperalimentation, no feeding in the meantime. 3. Proton pump inhibitors. 4. IV antibiotics. 5. Further recommendations to follow. 6. The patient will have upper endoscopy with removal of all the nonfunction PEG tube, then subsequent to be inserted at the same time. Thank you for allowing me to participate in your patient's case management. Fatou Dowd MD cc:
[2018-01-08] MEDS: Acetylcysteine 20% Inhal Soln (4ml) INH SCH ×3 (07:38→20:04)
--- NOTE | 2018-01-08 09:57 | CP.PCM.PN ---
<Judith Martinez - Last Filed: 01/08/18 14:17> Subjective - Date & Time of Evaluation Date of Evaluation: 01/08/18 Time of Evaluation: 09:57 - Subjective Subjective: Patient seen and examined at bedside. Patient's PEG tube was replaced 01/07. Unable to obtain ROS due to anoxic brain injury. Objective - Vital Signs/Intake and Output Vital Signs (last 24 hours): Temp Pulse Resp BP Pulse Ox 98.4 F 60 20 102/58 L 100 01/08/18 08:00 01/08/18 08:00 01/08/18 08:00 01/08/18 08:00 01/08/18 08:00 Intake and Output: 01/08/18 01/08/18 06:59 18:59 Intake Total 1210 Output Total 1000 400 Balance -1000 810 - Medications Medications: Current Medications Acetylcysteine (Acetylcysteine 20%) 4 ml INH RQ6 [facility] Last Admin: 01/08/18 07:38 Dose: Not Given Albuterol/Ipratropium (Duoneb 3 Mg/0.5 Mg (3 Ml) Ud) 3 ml INH RQ6 [facility] Last Admin: 01/08/18 07:38 Dose: 3 ml Aspirin (Aspirin Chewable) 81 mg PEG DAILY [facility] Last Admin: 01/07/18 10:05 Dose: Not Given Carvedilol (Coreg) 3.125 mg PEG BID [facility] Last Admin: 01/07/18 17:53 Dose: 3.125 mg Enoxaparin Sodium (Lovenox) 40 mg SC DAILY [facility] Last Admin: 01/07/18 10:07 Dose: Not Given Famotidine (Pepcid) 20 mg PEG DAILY [facility] Last Admin: 01/07/18 10:07 Dose: Not Given Finasteride (Proscar) 5 mg PEG DAILY [facility] Last Admin: 01/07/18 10:07 Dose: Not Given Levetiracetam 500 mg/ Sodium (Chloride) 105 mls @ 420 mls/hr IVPB Q12H [facility] Last Admin: 01/07/18 23:45 Dose: 420 mls/hr Lactated Ringer's (Lactated Ringer's 500ml) 500 mls @ 75 mls/hr IV .Q6H40M [facility] Last Admin: 01/08/18 03:34 Dose: 75 mls/hr Levetiracetam (Keppra) 500 mg PEG BID [facility] Last Admin: 01/06/18 11:00 Dose: Not Given Rosuvastatin Calcium (Crestor) 2.5 mg PEG HS [facility] Last Admin: 01/07/18 21:17 Dose: 2.5 mg Saccharomyces Boulardii (Florastor) 250 mg PEG DAILY [facility] Last Admin: 01/07/18 10:06 Dose: Not Given Scopolamine (Transderm-Scop) 1 patch TD Q3D [facility] Last Admin: 01/07/18 10:34 Dose: 1 patch Tamsulosin HCl (Flomax) 0.4 mg PEG DAILY [facility] Last Admin: 01/07/18 10:06 Dose: Not Given - Labs Labs: 01/05/18 11:38 01/05/18 11:38 PT 10.6 SECONDS (9.7-12.2) 11/24/15 14:10 INR 1.0 11/24/15 14:10 APTT 25 SECONDS (21-34) 11/24/15 14:10 - Additional Findings Additional findings: - Head Exam Head Exam: ATRAUMATIC, NORMAL INSPECTION - Eye Exam Eye Exam: absent: EOMI, Normal appearance - ENT Exam ENT Exam: Mucous Membranes Moist - Neck Exam Additional comments: Tracheostomy in place - Respiratory Exam Respiratory Exam:Rhonchi. absent: Clear to Ausculation Bilateral (excessive mucous production), Respiratory Distress - Cardiovascular Exam Cardiovascular Exam: REGULAR RHYTHM, +S1, +S2 - GI/Abdominal Exam GI & Abdominal Exam: Distended, Soft, Hypoactive Bowel Sounds. absent: Firm, Mass Additional comments: PEG in place without erythema or swelling of surrounding skin - Extremities Exam Extremities Exam: absent: Pedal Edema - Neurological Exam Neurological Exam: Altered. absent: Alert, Awake, Oriented x3 - Psychiatric Exam Psychiatric exam: Altered (Patient is non-verbal from anoxic brain injury sustained on 05/2015). absent: Normal Affect, Normal Mood - Skin Skin Exam: Dry, Intact, Warm. Assessment and Plan - Assessment and Plan (Free Text) Plan: (1) Anoxic encephalopathy Assessment & Plan: * s/p cardiac arrest in 05/2015 * no acute changes in mental status. * Pt has non spontaneous movements. * patient is currently on 40cc/hr on tube feedings * via PEG * Aspirin 81mg daily * Plavix 75 mg daily * Keppra 500mg bid Status: Chronic (2) Acute Respiratory failure Assessment & Plan: * Trach in place, continue daily monitoring for secretions. No change in management at this time. * Continue with aggressive suctioning multiple times a day per respiratory therapist if secretions are thickened * Scopolamine 1 patch TD Q3D JOO * Duoneb 3ml INH RQ6 * Acetylcysteine 4ml INH RQ6 * Most recent chest xray: * 09/28/17: no active disease. No significant interval change compared to. Status: Chronic (3) History of Recurrent UTIs Assessment & Plan: * ID consult: Dr. Armstrong --> help appreciated * Patient is afebrile, no apparent leukocytosis * Patient is off IV abx since 08/05/17 * patient has condom catheter and Bladder scan PRN to prevent urinary retention Status: Acute (4) History of Urinary retention Assessment & Plan: * Bethanecol 50mg PEG TID * Tamsulosin 0.4mg PEG QD * Bladder scan up to 3x a week to monitor residual urine * patient has had history of recurrent UTIs Status: Chronic (5) Hypokalemia Assessment & Plan: * Monitor and replete Status: Acute (6) History of Sacral ulcer Assessment & Plan: * Healed * Cont with offloading/cushioning/turning * Continue frequent turning, protective ointment and skin checks. Status: Resolved (7) History of coronary artery disease Assessment & Plan: * s/p cardiac stents on 06/13/15 * Cont ASA 81mg via PEG daily * Cont Coreg 3.125mg PEG BID * Cont Plavix 75 mg PEG daily * Rosuvastatin 2.5mg PO HS Status: Acute (8) History of Seizures Assessment & Plan: * Continue Keppra 500mg PEG BID for seizure prophylaxis * Monitor for activity Status: Chronic (9) Lower extremity edema Assessment & Plan: * Improved * SCDs in place * Pressure ulcer boots on b/l * Continue to monitor Status: Chronic (10) Prophylactic measure Assessment & Plan: * Pepcid 20 mg PEG BID * Lovenox 40mg SC daily * SCDs and offloading boots * Saccharomyces 250mg PEG QD * continue to turn and reposition q2hrs * Continue to monitor medication administrations and clinical presentation weekly labs. 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 per case management 10/08: unable to place patient. No changes at this time. <Jeison Moore - Last Filed: 01/09/18 14:02> Objective - Vital Signs/Intake and Output Vital Signs (last 24 hours): Temp Pulse Resp BP Pulse Ox 98.4 F 61 23 113/49 L 100 01/09/18 07:51 01/09/18 07:51 01/09/18 07:51 01/09/18 07:51 01/09/18 07:51 Intake and Output: 01/09/18 01/09/18 06:59 18:59 Intake Total 1450 Output Total 1300 Balance 150 - Medications Medications: Current Medications Acetylcysteine (Acetylcysteine 20%) 4 ml INH RQ6 [facility] Last Admin: 01/09/18 13:30 Dose: Not Given Albuterol/Ipratropium (Duoneb 3 Mg/0.5 Mg (3 Ml) Ud) 3 ml INH RQ6 [facility] Last Admin: 01/09/18 13:30 Dose: 3 ml Aspirin (Aspirin Chewable) 81 mg PEG DAILY [facility] Last Admin: 01/09/18 10:38 Dose: 81 mg Carvedilol (Coreg) 3.125 mg PEG BID [facility] Last Admin: 01/09/18 10:38 Dose: 3.125 mg Enoxaparin Sodium (Lovenox) 40 mg SC DAILY [facility] Last Admin: 01/09/18 10:41 Dose: 40 mg Famotidine (Pepcid) 20 mg PEG DAILY [facility] Last Admin: 01/09/18 10:38 Dose: 20 mg Finasteride (Proscar) 5 mg PEG DAILY [facility] Last Admin: 01/09/18 10:38 Dose: 5 mg Levetiracetam (Keppra) 500 mg PEG BID [facility] Last Admin: 01/09/18 10:38 Dose: 500 mg Rosuvastatin Calcium (Crestor) 2.5 mg PEG HS [facility] Last Admin: 01/08/18 22:04 Dose: 2.5 mg Saccharomyces Boulardii (Florastor) 250 mg PEG DAILY [facility] Last Admin: 01/09/18 10:38 Dose: 250 mg Scopolamine (Transderm-Scop) 1 patch TD Q3D [facility] Last Admin: 01/07/18 10:34 Dose: 1 patch Tamsulosin HCl (Flomax) 0.4 mg PEG DAILY [facility] Last Admin: 01/09/18 10:38 Dose: 0.4 mg - Labs Labs: 01/05/18 11:38 01/05/18 11:38 PT 10.6 SECONDS (9.7-12.2) 11/24/15 14:10 INR 1.0 11/24/15 14:10 APTT 25 SECONDS (21-34) 11/24/15 14:10 Attending/Attestation - Attestation I have personally seen and examined this patient.: No I have fully participated in the care of the patient.: Yes I have reviewed all pertinent clinical information, including history, physical exam and plan: Yes Notes (Text): no changes not examined Has a midline Catheter on right arm
[2018-01-08] MEDS: Saccharomyces Boulardi 250 mg Cap PEG SCH (10:19)
[2018-01-08] MEDS: Enoxaparin 40 mg Syringe SC SCH (10:20)
[2018-01-08] MEDS: levETIRAcetam 100 mg/ml (5ml) Oral Syringe PEG SCH (18:00)
[2018-01-08] MEDS: Rosuvastatin Calcium 2.5 mg Tab PEG SCH (22:04)
[2018-01-09] MEDS: Acetylcysteine 20% Inhal Soln (4ml) INH SCH ×4 (02:50→20:05)
[2018-01-09] MEDS: Albuterol-Ipratrop 3 mg / 0.5 (3 ml) UD INH SCH ×4 (02:51→20:06)
[2018-01-09] MEDS: levETIRAcetam 100 mg/ml (5ml) Oral Syringe PEG SCH ×2 (10:38→17:15)
[2018-01-09] MEDS: Saccharomyces Boulardi 250 mg Cap PEG SCH (10:38)
[2018-01-09] MEDS: Enoxaparin 40 mg Syringe SC SCH (10:41)
[2018-01-09] MEDS: Rosuvastatin Calcium 2.5 mg Tab PEG SCH (22:50)
[2018-01-10] MEDS: Acetylcysteine 20% Inhal Soln (4ml) INH SCH ×4 (02:42→19:18)
[2018-01-10] MEDS: Albuterol-Ipratrop 3 mg / 0.5 (3 ml) UD INH SCH ×4 (02:42→19:18)
[2018-01-10] MEDS: Enoxaparin 40 mg Syringe SC SCH (10:31)
[2018-01-10] MEDS: Saccharomyces Boulardi 250 mg Cap PEG SCH (10:31)
[2018-01-10] MEDS: levETIRAcetam 100 mg/ml (5ml) Oral Syringe PEG SCH ×2 (10:31→17:40)
--- NOTE | 2018-01-10 16:39 | PN ---
DATE: 01/10/2018 LOCATION: 367. SUBJECTIVE: This 64-year-old male, post PEG insertion, seen and examined in rounds without significant clinical changes or reported active bleeding. The entire chart is reviewed including, but not limited to the most recent lab and radiology study results, current and the previous medication list, current and the previous medical events. Case discussed with the staff at length. The patient is nonverbal. All the information obtained through the nursing staff and medical staff. PHYSICAL EXAMINATION: GENERAL: A 64-year-old male. VITAL SIGNS: Afebrile with pulse of 64, respiratory rate 20 to 22, blood pressure 124/72. HEENT: Showed pale, dry oral mucous membranes. Nonicteric sclerae. LUNGS: Few scattered crepitation, decreased air entry at bases. HEART: Positive S1 and S2. ABDOMEN: Soft. Bowel sounds are present. No mass or organomegaly. No rebound tenderness or guarding. PEG tube is in place with stoma. EXTREMITIES: Lower extremity edematous changes. No clubbing or cyanosis. IMPRESSION: 1. Dysphagia with malnutrition, hypoalbuminemia. 2. Status post percutaneous endoscopic gastrostomy insertion. 3. Status post tracheostomy. 4. Reported history of status post cardiopulmonary arrest. 5. Hyperglycemia by recent history. SUGGESTIONS: 1. Continue current management. 2. Subsequent increase rate of feeding as tolerated. 3. No further aggressive GI workup to be reported. 4. Due to the patient's reported anoxic encephalopathy, Neurology evaluation is advised. 5. Further recommendation to follow. Fatou Dowd MD
[2018-01-10] MEDS: Rosuvastatin Calcium 2.5 mg Tab PEG SCH (22:05)
[2018-01-11] MEDS: Albuterol-Ipratrop 3 mg / 0.5 (3 ml) UD INH SCH ×4 (02:35→19:28)
[2018-01-11] MEDS: Acetylcysteine 20% Inhal Soln (4ml) INH SCH ×4 (02:35→19:28)
[2018-01-11 07:18] LABS: BASO # 0.1 K/uL (0.0-0.2); BASO % 0.7 % (0.0-2.0); EOS # 0.5 K/uL (0.0-0.7); EOS % 5.3 % (0.0-4.0); HEMOGLOBIN 11.6 g/dL (12.0-18.0); LYMPH % 35.6 % (20.0-40.0); MEAN CELL VOLUME 88.3 fL (80.0-94.0); MEAN CORPUSCULAR HEMOGLOBIN 29.1 pg (27.0-31.0); MEAN PLATELET VOLUME 8.8 fL (7.2-11.7); MONO # 0.8 K/uL (0.0-0.8); NEUT # 4.1 K/uL (1.8-7.0); NEUT % 48.4 % (50.0-75.0); NRBC % 0.1 % (0.0-2.0); RBC 3.99 Mil/uL (4.40-5.90); RED CELL DISTRIBUTION WIDTH 14.7 % (11.5-14.5); WHITE BLOOD COUNT 8.5 K/uL (4.8-10.8)
--- NOTE | 2018-01-11 07:51 | PN ---
DATE: LOCATION: [facility], Bed A. SUBJECTIVE: This is a 67 years old male post PEG change, seen and examined in rounds with the staff in the floor without any significant clinical changes with intact PEG tube. Feeding process is positive. Most recent lab results showed normal CBC. Today's lab is still pending. PHYSICAL EXAMINATION: GENERAL: A 67 years old male, nonverbal. VITAL SIGNS: Afebrile with pulse of 64, respiratory rate 20 to 22, and blood pressure 116/72. HEENT: Showed pale dry oral mucous membranes. Nonicteric sclerae. LUNGS: Few scattered crepitation, decreased air entry at bases. HEART: Positive S1 and S2. ABDOMEN: Soft. Bowel sounds are present. No mass or organomegaly. No rebound tenderness or guarding. No evidence of anterior abdominal wall cellulitis. EXTREMITIES: Lower extremities with mild edematous changes. No clubbing or cyanosis. NEUROLOGIC: No reported new neurological focal deficits, sensory or motor. IMPRESSION: 1. Malnutrition with dysphagia and status post PEG change. 2. Peptic ulcer disease. 3. Hypoalbuminemia. 4. Status post tracheostomy, patient is status post cardiopulmonary arrest. SUGGESTION: 1. Continue current management. 2. Subsequent increase of rate of feedings thorough the PEG tube. 3. Followup on H and H. 4. Further recommendation to follow. Fatou Dowd MD
[2018-01-11 07:55] LABS: ALBUMIN 3.5 g/dL (3.5-5.0); BLOOD UREA NITROGEN 9 mg/dL (9-20); CALCIUM 8.7 mg/dl (8.6-10.4); GFR NON-AFRICAN AMERICAN > 60
[2018-01-11 07:56] LABS: ALB/GLOB RATIO 0.8 (1.0-2.1); ALT/SGPT 32 U/L (21-72); AST/SGOT 27 U/L (17-59)
--- NOTE | 2018-01-11 09:47 | CP.PCM.PN ---
Subjective - Date & Time of Evaluation Date of Evaluation: 01/11/18 Time of Evaluation: 07:30 - Subjective Subjective: Patient seen and examined at bedside. Patient's PEG tube was replaced 01/07. Unable to obtain ROS due to anoxic brain injury. Objective - Vital Signs/Intake and Output Vital Signs (last 24 hours): Temp Pulse Resp BP Pulse Ox 98.4 F 61 20 115/64 97 01/11/18 08:39 01/11/18 08:39 01/11/18 08:39 01/11/18 08:39 01/11/18 08:39 Intake and Output: 01/11/18 01/11/18 06:59 18:59 Intake Total 1620 Output Total 1400 Balance 220 - Medications Medications: Current Medications Acetylcysteine (Acetylcysteine 20%) 4 ml INH RQ6 [facility] Last Admin: 01/11/18 07:47 Dose: Not Given Albuterol/Ipratropium (Duoneb 3 Mg/0.5 Mg (3 Ml) Ud) 3 ml INH RQ6 [facility] Last Admin: 01/11/18 07:47 Dose: 3 ml Aspirin (Aspirin Chewable) 81 mg PEG DAILY [facility] Last Admin: 01/10/18 10:31 Dose: 81 mg Carvedilol (Coreg) 3.125 mg PEG BID [facility] Last Admin: 01/10/18 17:40 Dose: 3.125 mg Enoxaparin Sodium (Lovenox) 40 mg SC DAILY [facility] Famotidine (Pepcid) 20 mg PEG DAILY [facility] Last Admin: 01/10/18 10:31 Dose: 20 mg Finasteride (Proscar) 5 mg PEG DAILY [facility] Last Admin: 01/10/18 10:31 Dose: 5 mg Levetiracetam (Keppra) 500 mg PEG BID [facility] Last Admin: 01/10/18 17:40 Dose: 500 mg Rosuvastatin Calcium (Crestor) 2.5 mg PEG HS [facility] Last Admin: 01/10/18 22:05 Dose: 2.5 mg Saccharomyces Boulardii (Florastor) 250 mg PEG DAILY [facility] Last Admin: 01/10/18 10:31 Dose: 250 mg Scopolamine (Transderm-Scop) 1 patch TD Q3D [facility] Last Admin: 01/10/18 10:31 Dose: 1 patch Tamsulosin HCl (Flomax) 0.4 mg PEG DAILY [facility] Last Admin: 01/10/18 10:31 Dose: 0.4 mg - Labs Labs: 01/11/18 07:06 01/11/18 07:06 PT 10.6 SECONDS (9.7-12.2) 11/24/15 14:10 INR 1.0 11/24/15 14:10 APTT 25 SECONDS (21-34) 11/24/15 14:10 - Additional Findings Additional findings: - Head Exam Head Exam: ATRAUMATIC, NORMAL INSPECTION - Eye Exam Eye Exam: absent: EOMI, Normal appearance - ENT Exam ENT Exam: Mucous Membranes Moist - Neck Exam Additional comments: Tracheostomy in place - Respiratory Exam Respiratory Exam:Rhonchi. absent: Clear to Ausculation Bilateral (excessive mucous production), Respiratory Distress - Cardiovascular Exam Cardiovascular Exam: REGULAR RHYTHM, +S1, +S2 - GI/Abdominal Exam GI & Abdominal Exam: Distended, Soft, Hypoactive Bowel Sounds. absent: Firm, Mass Additional comments: PEG in place without erythema or swelling of surrounding skin - Extremities Exam Extremities Exam: absent: Pedal Edema - Neurological Exam Neurological Exam: Altered. absent: Alert, Awake, Oriented x3 - Psychiatric Exam Psychiatric exam: Altered (Patient is non-verbal from anoxic brain injury sustained on 05/2015). absent: Normal Affect, Normal Mood - Skin Skin Exam: Dry, Intact, Warm. Assessment and Plan - Assessment and Plan (Free Text) Plan: (1) Anoxic encephalopathy Assessment & Plan: * s/p cardiac arrest in 05/2015 * no acute changes in mental status. * Pt has non spontaneous movements. * patient is currently on 40cc/hr on tube feedings * via PEG * Aspirin 81mg daily * Plavix 75 mg daily * Keppra 500mg bid Status: Chronic (2) Acute Respiratory failure Assessment & Plan: * Trach in place, continue daily monitoring for secretions. No change in management at this time. * Continue with aggressive suctioning multiple times a day per respiratory therapist if secretions are thickened * Scopolamine 1 patch TD Q3D JOO * Duoneb 3ml INH RQ6 * Acetylcysteine 4ml INH RQ6 * Most recent chest xray: * 09/28/17: no active disease. No significant interval change compared to. Status: Chronic (3) History of Recurrent UTIs Assessment & Plan: * ID consult: Dr. Armstrong --> help appreciated * Patient is afebrile, no apparent leukocytosis * Patient is off IV abx since 08/05/17 * patient has condom catheter and Bladder scan PRN to prevent urinary retention Status: Acute (4) History of Urinary retention Assessment & Plan: * Bethanecol 50mg PEG TID * Tamsulosin 0.4mg PEG QD * Bladder scan up to 3x a week to monitor residual urine * patient has had history of recurrent UTIs Status: Chronic (5) Hypokalemia Assessment & Plan: * Monitor and replete Status: Acute (6) History of Sacral ulcer Assessment & Plan: * Healed * Cont with offloading/cushioning/turning * Continue frequent turning, protective ointment and skin checks. Status: Resolved (7) History of coronary artery disease Assessment & Plan: * s/p cardiac stents on 06/13/15 * Cont ASA 81mg via PEG daily * Cont Coreg 3.125mg PEG BID * Cont Plavix 75 mg PEG daily * Rosuvastatin 2.5mg PO HS Status: Acute (8) History of Seizures Assessment & Plan: * Continue Keppra 500mg PEG BID for seizure prophylaxis * Monitor for activity Status: Chronic (9) Lower extremity edema Assessment & Plan: * Improved * SCDs in place * Pressure ulcer boots on b/l * Continue to monitor Status: Chronic (10) Prophylactic measure Assessment & Plan: * Pepcid 20 mg PEG BID * Lovenox 40mg SC daily * SCDs and offloading boots * Saccharomyces 250mg PEG QD * continue to turn and reposition q2hrs * Continue to monitor medication administrations and clinical presentation weekly labs. 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 per case management 10/08: unable to place patient. No changes at this time.
[2018-01-11] MEDS: levETIRAcetam 100 mg/ml (5ml) Oral Syringe PEG SCH ×2 (10:42→17:54)
[2018-01-11] MEDS: Saccharomyces Boulardi 250 mg Cap PEG SCH (10:45)
--- NOTE | 2018-01-11 17:36 | PN ---
LOCATION: [facility], Bed A. SUBJECTIVE: This is a 64-year-old male, seen and examined in rounds, tolerating PEG feeding well. No reported bleeding, residual or resistance. The entire chart is reviewed including, but not limited to the most recent lab and radiology study results, current and the previous medication list, current and the previous medical events. Today's lab showed low hemoglobin 11.6, but normal white blood cell and normal platelet count, with low creatinine, but normal BUN. PHYSICAL EXAMINATION: GENERAL: A 64-year-old male, nonverbal. VITAL SIGNS: Afebrile with pulse of 64, respiratory rate 20 to 22, and blood pressure 110/62. HEENT: Showed pale dry oral mucous membranes. Nonicteric sclerae. Tracheostomy tube is in place and intact. LUNGS: Scattered mild crepitation with decreased air entry at bases. HEART: Positive S1 and S2. ABDOMEN: Soft. Bowel sounds are present. No mass or organomegaly. No rebound tenderness or guarding. PEG tube is in place and intact. EXTREMITIES: Showed lower extremities with mild edematous changes. No clubbing or cyanosis. NEUROLOGIC: No reported new neurological focal deficits, sensory or motor. IMPRESSION: 1. Malnutrition. 2. Dysphagia. 3. Status post PEG insertion. 4. Respiratory failure. 5. Status post tracheostomy. 6. Reported history of status post cardiopulmonary arrest. 7. Hyperglycemia by recent history. SUGGESTION: 1. Continue current management. 2. Subsequent increase of rate of feedings as tolerated. 3. We will follow up with you tyson Fatou Dowd MD
[2018-01-11] MEDS: Rosuvastatin Calcium 2.5 mg Tab PEG SCH (21:44)
[2018-01-12] MEDS: Albuterol-Ipratrop 3 mg / 0.5 (3 ml) UD INH SCH ×4 (01:32→21:26)
[2018-01-12] MEDS: Acetylcysteine 20% Inhal Soln (4ml) INH SCH ×3 (01:33→14:15)
[2018-01-12] MEDS: levETIRAcetam 100 mg/ml (5ml) Oral Syringe PEG SCH ×2 (11:00→17:31)
[2018-01-12] MEDS: Enoxaparin 40 mg Syringe SC SCH (11:00)
[2018-01-12] MEDS: Saccharomyces Boulardi 250 mg Cap PEG SCH (11:01)
[2018-01-12] MEDS: Rosuvastatin Calcium 2.5 mg Tab PEG SCH (21:17)
[2018-01-13] MEDS: Albuterol-Ipratrop 3 mg / 0.5 (3 ml) UD INH SCH ×4 (03:06→20:07)
[2018-01-13] MEDS: Acetylcysteine 20% Inhal Soln (4ml) INH SCH ×3 (03:06→20:06)
--- NOTE | 2018-01-13 09:41 | CP.PCM.PN ---
<Judith Martinez - Last Filed: 01/13/18 10:47> Subjective - Date & Time of Evaluation Date of Evaluation: 01/13/18 Time of Evaluation: 07:45 - Subjective Subjective: Patient seen and examined at bedside. No acute events overnight. Unable to obtain ROS due to anoxic brain injury. Objective - Vital Signs/Intake and Output Vital Signs (last 24 hours): Temp Pulse Resp BP Pulse Ox 98.1 F 74 20 104/70 99 01/13/18 09:02 01/13/18 09:02 01/13/18 09:02 01/13/18 09:02 01/13/18 09:02 Intake and Output: 01/13/18 01/13/18 06:59 18:59 Intake Total 1205 Output Total 400 Balance 805 - Medications Medications: Current Medications Acetylcysteine (Acetylcysteine 20%) 4 ml INH RQ6 [facility] Last Admin: 01/13/18 08:05 Dose: Not Given Albuterol/Ipratropium (Duoneb 3 Mg/0.5 Mg (3 Ml) Ud) 3 ml INH RQ6 [facility] Last Admin: 01/13/18 08:05 Dose: 3 ml Aspirin (Aspirin Chewable) 81 mg PEG DAILY [facility] Carvedilol (Coreg) 3.125 mg PEG BID [facility] Enoxaparin Sodium (Lovenox) 40 mg SC DAILY [facility] Last Admin: 01/12/18 11:00 Dose: 40 mg Famotidine (Pepcid) 20 mg PEG DAILY [facility] Finasteride (Proscar) 5 mg PEG DAILY [facility] Levetiracetam (Keppra) 500 mg PEG BID [facility] Last Admin: 01/12/18 17:31 Dose: 500 mg Rosuvastatin Calcium (Crestor) 2.5 mg PEG HS [facility] Saccharomyces Boulardii (Florastor) 250 mg PEG DAILY [facility] Scopolamine (Transderm-Scop) 1 patch TD Q3D [facility] Last Admin: 01/10/18 10:31 Dose: 1 patch Tamsulosin HCl (Flomax) 0.4 mg PEG DAILY [facility] - Labs Labs: 01/11/18 07:06 01/11/18 07:06 PT 10.6 SECONDS (9.7-12.2) 11/24/15 14:10 INR 1.0 11/24/15 14:10 APTT 25 SECONDS (21-34) 11/24/15 14:10 - Additional Findings Additional findings: - Head Exam Head Exam: ATRAUMATIC, NORMAL INSPECTION - Eye Exam Eye Exam: absent: EOMI, Normal appearance - ENT Exam ENT Exam: Mucous Membranes Moist - Neck Exam Additional comments: Tracheostomy in place - Respiratory Exam Respiratory Exam:Rhonchi. absent: Clear to Ausculation Bilateral (excessive mucous production), Respiratory Distress - Cardiovascular Exam Cardiovascular Exam: REGULAR RHYTHM, +S1, +S2 - GI/Abdominal Exam GI & Abdominal Exam: Distended, Soft, Hypoactive Bowel Sounds. absent: Firm, Mass Additional comments: PEG in place without erythema or swelling of surrounding skin - Extremities Exam Extremities Exam: absent: Pedal Edema - Neurological Exam Neurological Exam: Altered. absent: Alert, Awake, Oriented x3 - Psychiatric Exam Psychiatric exam: Altered (Patient is non-verbal from anoxic brain injury sustained on 05/2015). absent: Normal Affect, Normal Mood - Skin Skin Exam: Dry, Intact, Warm. Assessment and Plan - Assessment and Plan (Free Text) Plan: (1) Anoxic encephalopathy Assessment & Plan: * s/p cardiac arrest in 05/2015 * no acute changes in mental status. * Pt has non spontaneous movements. * patient is currently on 40cc/hr on tube feedings * via PEG * Aspirin 81mg daily * Plavix 75 mg daily * Keppra 500mg bid Status: Chronic (2) Acute Respiratory failure Assessment & Plan: * Trach in place, continue daily monitoring for secretions. No change in management at this time. * Continue with aggressive suctioning multiple times a day per respiratory therapist if secretions are thickened * Scopolamine 1 patch TD Q3D JOO * Duoneb 3ml INH RQ6 * Acetylcysteine 4ml INH RQ6 * Most recent chest xray: * 09/28/17: no active disease. No significant interval change compared to. Status: Chronic (3) History of Recurrent UTIs Assessment & Plan: * ID consult: Dr. Armstrong --> help appreciated * Patient is afebrile, no apparent leukocytosis * Patient is off IV abx since 08/05/17 * patient has condom catheter and Bladder scan PRN to prevent urinary retention Status: Acute (4) History of Urinary retention Assessment & Plan: * Bethanecol 50mg PEG TID * Tamsulosin 0.4mg PEG QD * Bladder scan up to 3x a week to monitor residual urine * patient has had history of recurrent UTIs Status: Chronic (5) Hypokalemia Assessment & Plan: * Monitor and replete Status: Acute (6) History of Sacral ulcer Assessment & Plan: * Healed * Cont with offloading/cushioning/turning * Continue frequent turning, protective ointment and skin checks. Status: Resolved (7) History of coronary artery disease Assessment & Plan: * s/p cardiac stents on 06/13/15 * Cont ASA 81mg via PEG daily * Cont Coreg 3.125mg PEG BID * Cont Plavix 75 mg PEG daily * Rosuvastatin 2.5mg PO HS Status: Acute (8) History of Seizures Assessment & Plan: * Continue Keppra 500mg PEG BID for seizure prophylaxis * Monitor for activity Status: Chronic (9) Lower extremity edema Assessment & Plan: * Improved * SCDs in place * Pressure ulcer boots on b/l * Continue to monitor Status: Chronic (10) Prophylactic measure Assessment & Plan: * Pepcid 20 mg PEG BID * Lovenox 40mg SC daily * SCDs and offloading boots * Saccharomyces 250mg PEG QD * continue to turn and reposition q2hrs * Continue to monitor medication administrations and clinical presentation weekly labs. 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 per case management 10/08: unable to place patient. No changes at this time. <Amandeep Chavis - Last Filed: 01/13/18 16:05> Objective - Vital Signs/Intake and Output Vital Signs (last 24 hours): Temp Pulse Resp BP Pulse Ox 98.1 F 74 20 104/70 99 01/13/18 09:02 01/13/18 09:02 01/13/18 09:02 01/13/18 09:02 01/13/18 09:02 Intake and Output: 01/13/18 01/13/18 06:59 18:59 Intake Total 1205 Output Total 400 Balance 805 - Medications Medications: Current Medications Acetylcysteine (Acetylcysteine 20%) 4 ml INH RQ6 [facility] Last Admin: 01/13/18 08:05 Dose: Not Given Albuterol/Ipratropium (Duoneb 3 Mg/0.5 Mg (3 Ml) Ud) 3 ml INH RQ6 [facility] Last Admin: 01/13/18 13:11 Dose: 3 ml Aspirin (Aspirin Chewable) 81 mg PEG DAILY [facility] Last Admin: 01/13/18 10:59 Dose: 81 mg Carvedilol (Coreg) 3.125 mg PEG BID [facility] Last Admin: 01/13/18 11:00 Dose: 3.125 mg Enoxaparin Sodium (Lovenox) 40 mg SC DAILY [facility] Last Admin: 01/13/18 10:58 Dose: 40 mg Famotidine (Pepcid) 20 mg PEG DAILY [facility] Last Admin: 01/13/18 11:00 Dose: 20 mg Finasteride (Proscar) 5 mg PEG DAILY [facility] Last Admin: 01/13/18 10:59 Dose: 5 mg Levetiracetam (Keppra) 500 mg PEG BID [facility] Last Admin: 01/13/18 10:59 Dose: 500 mg Rosuvastatin Calcium (Crestor) 2.5 mg PEG HS [facility] Saccharomyces Boulardii (Florastor) 250 mg PEG DAILY [facility] Last Admin: 01/13/18 11:00 Dose: 250 mg Scopolamine (Transderm-Scop) 1 patch TD Q3D [facility] Last Admin: 01/13/18 11:00 Dose: 1 patch - Labs Labs: 01/11/18 07:06 01/11/18 07:06 PT 10.6 SECONDS (9.7-12.2) 11/24/15 14:10 INR 1.0 11/24/15 14:10 APTT 25 SECONDS (21-34) 11/24/15 14:10 Assessment and Plan (1) Prophylactic measure Status: Acute (2) Anoxic encephalopathy Status: Chronic (3) STEMI (ST elevation myocardial infarction) Status: Acute (4) Cardiac arrest Status: Acute (5) Seizures Status: Acute (6) Respiratory failure Status: Chronic Attending/Attestation - Attestation I have personally seen and examined this patient.: Yes I have fully participated in the care of the patient.: Yes I have reviewed all pertinent clinical information, including history, physical exam and plan: Yes Notes (Text): 01/13/18 16:04 Medical attending: Patient was seen and examined by me, agree with the above note by medical services manager. Situation is unchanged from previous. Amandeep Chavis
[2018-01-13] MEDS: Enoxaparin 40 mg Syringe SC SCH (10:58)
[2018-01-13] MEDS: levETIRAcetam 100 mg/ml (5ml) Oral Syringe PEG SCH ×2 (10:59→17:19)
[2018-01-13] MEDS: Saccharomyces Boulardi 250 mg Cap PEG SCH (11:00)
[2018-01-13] MEDS: Rosuvastatin Calcium 2.5 mg Tab PEG SCH (21:47)
[2018-01-14] MEDS: Acetylcysteine 20% Inhal Soln (4ml) INH SCH ×4 (01:34→20:47)
[2018-01-14] MEDS: Albuterol-Ipratrop 3 mg / 0.5 (3 ml) UD INH SCH ×6 (01:34→20:35)
[2018-01-14] MEDS: levETIRAcetam 100 mg/ml (5ml) Oral Syringe PEG SCH ×2 (10:40→17:39)
[2018-01-14] MEDS: Saccharomyces Boulardi 250 mg Cap PEG SCH (10:40)
[2018-01-14] MEDS: Enoxaparin 40 mg Syringe SC SCH (10:40)
[2018-01-14] MEDS: Rosuvastatin Calcium 2.5 mg Tab PEG SCH (21:29)
[2018-01-15] MEDS: Acetylcysteine 20% Inhal Soln (4ml) INH SCH ×4 (02:58→19:20)
[2018-01-15] MEDS: Albuterol-Ipratrop 3 mg / 0.5 (3 ml) UD INH SCH ×4 (02:58→19:20)
[2018-01-15] MEDS: levETIRAcetam 100 mg/ml (5ml) Oral Syringe PEG SCH ×2 (10:07→18:33)
[2018-01-15] MEDS: Saccharomyces Boulardi 250 mg Cap PEG SCH (10:10)
[2018-01-15] MEDS: Enoxaparin 40 mg Syringe SC SCH (10:10)
--- NOTE | 2018-01-15 11:20 | CP.PCM.PN ---
<uJdith Martinez - Last Filed: 01/15/18 11:18> Subjective - Date & Time of Evaluation Date of Evaluation: 01/15/18 Time of Evaluation: 11:18 - Subjective Subjective: Patient seen and examined at bedside. No acute events overnight. Unable to obtain ROS due to anoxic brain injury. Objective - Vital Signs/Intake and Output Vital Signs (last 24 hours): Temp Pulse Resp BP Pulse Ox 98.1 F 66 20 118/76 98 01/15/18 07:27 01/15/18 07:27 01/15/18 07:27 01/15/18 07:27 01/15/18 07:27 Intake and Output: 01/15/18 01/15/18 06:59 18:59 Intake Total 864 610 Output Total 600 300 Balance 264 310 - Medications Medications: Current Medications Acetylcysteine (Acetylcysteine 20%) 4 ml INH RQ6 [facility] Last Admin: 01/15/18 08:09 Dose: 4 ml Albuterol/Ipratropium (Duoneb 3 Mg/0.5 Mg (3 Ml) Ud) 3 ml INH RQ6 [facility] Last Admin: 01/15/18 08:09 Dose: 3 ml Aspirin (Aspirin Chewable) 81 mg PEG DAILY [facility] Last Admin: 01/15/18 10:06 Dose: 81 mg Carvedilol (Coreg) 3.125 mg PEG BID [facility] Last Admin: 01/15/18 10:07 Dose: 3.125 mg Enoxaparin Sodium (Lovenox) 40 mg SC DAILY [facility] Last Admin: 01/15/18 10:10 Dose: 40 mg Famotidine (Pepcid) 20 mg PEG DAILY [facility] Last Admin: 01/15/18 10:07 Dose: 20 mg Finasteride (Proscar) 5 mg PEG DAILY [facility] Last Admin: 01/15/18 10:08 Dose: 5 mg Levetiracetam (Keppra) 500 mg PEG BID [facility] Last Admin: 01/15/18 10:07 Dose: 500 mg Rosuvastatin Calcium (Crestor) 2.5 mg PEG HS [facility] Last Admin: 01/14/18 21:29 Dose: 2.5 mg Saccharomyces Boulardii (Florastor) 250 mg PEG DAILY [facility] Last Admin: 01/15/18 10:10 Dose: 250 mg Scopolamine (Transderm-Scop) 1 patch TD Q3D [facility] Last Admin: 01/13/18 11:00 Dose: 1 patch - Labs Labs: 01/11/18 07:06 01/11/18 07:06 PT 10.6 SECONDS (9.7-12.2) 11/24/15 14:10 INR 1.0 11/24/15 14:10 APTT 25 SECONDS (21-34) 11/24/15 14:10 - Additional Findings Additional findings: - Head Exam Head Exam: ATRAUMATIC, NORMAL INSPECTION - Eye Exam Eye Exam: absent: EOMI, Normal appearance - ENT Exam ENT Exam: Mucous Membranes Moist - Neck Exam Additional comments: Tracheostomy in place - Respiratory Exam Respiratory Exam:Rhonchi. absent: Clear to Ausculation Bilateral (excessive mucous production), Respiratory Distress - Cardiovascular Exam Cardiovascular Exam: REGULAR RHYTHM, +S1, +S2 - GI/Abdominal Exam GI & Abdominal Exam: Distended, Soft, Hypoactive Bowel Sounds. absent: Firm, Mass Additional comments: PEG in place without erythema or swelling of surrounding skin - Extremities Exam Extremities Exam: absent: Pedal Edema - Neurological Exam Neurological Exam: Altered. absent: Alert, Awake, Oriented x3 - Psychiatric Exam Psychiatric exam: Altered (Patient is non-verbal from anoxic brain injury sustained on 05/2015). absent: Normal Affect, Normal Mood - Skin Skin Exam: Dry, Intact, Warm. Assessment and Plan - Assessment and Plan (Free Text) Plan: (1) Anoxic encephalopathy Assessment & Plan: * s/p cardiac arrest in 05/2015 * no acute changes in mental status. * Pt has non spontaneous movements. * patient is currently on 40cc/hr on tube feedings * via PEG * Aspirin 81mg daily * Plavix 75 mg daily * Keppra 500mg bid Status: Chronic (2) Acute Respiratory failure Assessment & Plan: * Trach in place, continue daily monitoring for secretions. No change in management at this time. * Continue with aggressive suctioning multiple times a day per respiratory therapist if secretions are thickened * Scopolamine 1 patch TD Q3D JOO * Duoneb 3ml INH RQ6 * Acetylcysteine 4ml INH RQ6 * Most recent chest xray: * 09/28/17: no active disease. No significant interval change compared to. Status: Chronic (3) History of Recurrent UTIs Assessment & Plan: * ID consult: Dr. Armstrong --> help appreciated * Patient is afebrile, no apparent leukocytosis * Patient is off IV abx since 08/05/17 * patient has condom catheter and Bladder scan PRN to prevent urinary retention Status: Acute (4) History of Urinary retention Assessment & Plan: * Bethanecol 50mg PEG TID * Tamsulosin 0.4mg PEG QD * Bladder scan up to 3x a week to monitor residual urine * patient has had history of recurrent UTIs Status: Chronic (5) Hypokalemia Assessment & Plan: * Monitor and replete Status: Acute (6) History of Sacral ulcer Assessment & Plan: * Healed * Cont with offloading/cushioning/turning * Continue frequent turning, protective ointment and skin checks. Status: Resolved (7) History of coronary artery disease Assessment & Plan: * s/p cardiac stents on 06/13/15 * Cont ASA 81mg via PEG daily * Cont Coreg 3.125mg PEG BID * Cont Plavix 75 mg PEG daily * Rosuvastatin 2.5mg PO HS Status: Acute (8) History of Seizures Assessment & Plan: * Continue Keppra 500mg PEG BID for seizure prophylaxis * Monitor for activity Status: Chronic (9) Lower extremity edema Assessment & Plan: * Improved * SCDs in place * Pressure ulcer boots on b/l * Continue to monitor Status: Chronic (10) Prophylactic measure Assessment & Plan: * Pepcid 20 mg PEG BID * Lovenox 40mg SC daily * SCDs and offloading boots * Saccharomyces 250mg PEG QD * continue to turn and reposition q2hrs * Continue to monitor medication administrations and clinical presentation weekly labs. 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 Per case management 10/08: unable to place patient. No changes at this time. <Amandeep Chavis - Last Filed: 01/15/18 14:00> Objective - Vital Signs/Intake and Output Vital Signs (last 24 hours): Temp Pulse Resp BP Pulse Ox 98.1 F 66 20 118/76 98 01/15/18 07:27 01/15/18 07:27 01/15/18 07:27 01/15/18 07:27 01/15/18 07:27 Intake and Output: 01/15/18 01/15/18 06:59 18:59 Intake Total 864 610 Output Total 600 300 Balance 264 310 - Medications Medications: Current Medications Acetylcysteine (Acetylcysteine 20%) 4 ml INH RQ6 [facility] Last Admin: 01/15/18 13:52 Dose: 4 ml Albuterol/Ipratropium (Duoneb 3 Mg/0.5 Mg (3 Ml) Ud) 3 ml INH RQ6 [facility] Last Admin: 01/15/18 13:52 Dose: 3 ml Aspirin (Aspirin Chewable) 81 mg PEG DAILY [facility] Last Admin: 01/15/18 10:06 Dose: 81 mg Carvedilol (Coreg) 3.125 mg PEG BID [facility] Last Admin: 01/15/18 10:07 Dose: 3.125 mg Enoxaparin Sodium (Lovenox) 40 mg SC DAILY [facility] Last Admin: 01/15/18 10:10 Dose: 40 mg Famotidine (Pepcid) 20 mg PEG DAILY [facility] Last Admin: 01/15/18 10:07 Dose: 20 mg Finasteride (Proscar) 5 mg PEG DAILY [facility] Last Admin: 01/15/18 10:08 Dose: 5 mg Levetiracetam (Keppra) 500 mg PEG BID [facility] Last Admin: 01/15/18 10:07 Dose: 500 mg Rosuvastatin Calcium (Crestor) 2.5 mg PEG HS [facility] Last Admin: 01/14/18 21:29 Dose: 2.5 mg Saccharomyces Boulardii (Florastor) 250 mg PEG DAILY [facility] Last Admin: 01/15/18 10:10 Dose: 250 mg Scopolamine (Transderm-Scop) 1 patch TD Q3D [facility] Last Admin: 01/13/18 11:00 Dose: 1 patch - Labs Labs: 01/11/18 07:06 01/11/18 07:06 PT 10.6 SECONDS (9.7-12.2) 11/24/15 14:10 INR 1.0 11/24/15 14:10 APTT 25 SECONDS (21-34) 11/24/15 14:10 Assessment and Plan (1) Prophylactic measure Status: Acute (2) Anoxic encephalopathy Status: Chronic (3) STEMI (ST elevation myocardial infarction) Status: Acute (4) Cardiac arrest Status: Acute (5) Seizures Status: Acute (6) Respiratory failure Status: Chronic Attending/Attestation - Attestation I have personally seen and examined this patient.: Yes I have fully participated in the care of the patient.: Yes I have reviewed all pertinent clinical information, including history, physical exam and plan: Yes Notes (Text): 01/15/18 13:59 Medical attending As before - situation remains the same thank you Amandeep Chavis
[2018-01-15] MEDS: Rosuvastatin Calcium 2.5 mg Tab PEG SCH (21:44)
[2018-01-16] MEDS: Acetylcysteine 20% Inhal Soln (4ml) INH SCH ×4 (03:00→21:03)
[2018-01-16] MEDS: Albuterol-Ipratrop 3 mg / 0.5 (3 ml) UD INH SCH ×4 (03:00→21:03)
[2018-01-16] MEDS: levETIRAcetam 100 mg/ml (5ml) Oral Syringe PEG SCH ×2 (10:56→17:29)
[2018-01-16] MEDS: Saccharomyces Boulardi 250 mg Cap PEG SCH (10:56)
[2018-01-16] MEDS: Enoxaparin 40 mg Syringe SC SCH (10:56)
[2018-01-16] MEDS: Rosuvastatin Calcium 2.5 mg Tab PEG SCH (21:21)
[2018-01-17] MEDS: Acetylcysteine 20% Inhal Soln (4ml) INH SCH ×4 (03:03→20:33)
[2018-01-17] MEDS: Albuterol-Ipratrop 3 mg / 0.5 (3 ml) UD INH SCH ×4 (03:03→20:33)
[2018-01-17] MEDS: Enoxaparin 40 mg Syringe SC SCH (11:00)
[2018-01-17] MEDS: Saccharomyces Boulardi 250 mg Cap PEG SCH (11:00)
[2018-01-17] MEDS: levETIRAcetam 100 mg/ml (5ml) Oral Syringe PEG SCH ×2 (11:00→17:53)
[2018-01-17] MEDS: Rosuvastatin Calcium 2.5 mg Tab PEG SCH (21:30)
[2018-01-18] MEDS: Acetylcysteine 20% Inhal Soln (4ml) INH SCH ×4 (01:37→19:40)
[2018-01-18] MEDS: Albuterol-Ipratrop 3 mg / 0.5 (3 ml) UD INH SCH ×4 (01:37→19:40)
[2018-01-18 06:17] LABS: BASO % 0.4 % (0.0-2.0); EOS # 0.5 K/uL (0.0-0.7); HEMOGLOBIN 11.8 g/dL (12.0-18.0); LYMPH # 3.1 K/uL (1.0-4.3); LYMPH % 31.1 % (20.0-40.0); MEAN CELL VOLUME 87.1 fL (80.0-94.0); MEAN CORPUSCULAR HEMOGLOBIN 28.8 pg (27.0-31.0); MEAN PLATELET VOLUME 8.9 fL (7.2-11.7); MONO # 0.9 K/uL (0.0-0.8); MONO % 9.1 % (0.0-10.0); NEUT # 5.4 K/uL (1.8-7.0); NEUT % 54.4 % (50.0-75.0); RBC 4.11 Mil/uL (4.40-5.90); RED CELL DISTRIBUTION WIDTH 15.2 % (11.5-14.5); WHITE BLOOD COUNT 9.9 K/uL (4.8-10.8)
[2018-01-18 06:46] LABS: ALB/GLOB RATIO 0.8 (1.0-2.1); ALBUMIN 3.4 g/dL (3.5-5.0); ALT/SGPT 34 U/L (21-72); AST/SGOT 23 U/L (17-59); BLOOD UREA NITROGEN 11 mg/dL (9-20); CALCIUM 8.5 mg/dl (8.6-10.4); GFR NON-AFRICAN AMERICAN > 60
[2018-01-18] MEDS: Enoxaparin 40 mg Syringe SC SCH (12:05)
[2018-01-18] MEDS: Saccharomyces Boulardi 250 mg Cap PEG SCH (12:05)
[2018-01-18] MEDS: levETIRAcetam 100 mg/ml (5ml) Oral Syringe PEG SCH ×2 (12:06→18:47)
--- NOTE | 2018-01-18 15:46 | CP.PCM.PN ---
<Judith Martinez - Last Filed: 01/18/18 15:40> Subjective - Date & Time of Evaluation Date of Evaluation: 01/18/18 Time of Evaluation: 07:15 - Subjective Subjective: Patient seen and examined at bedside. No acute events overnight. Unable to obtain ROS due to anoxic brain injury. Objective - Vital Signs/Intake and Output Vital Signs (last 24 hours): Temp Pulse Resp BP Pulse Ox 98 F 67 20 104/71 97 01/18/18 08:50 01/18/18 08:50 01/18/18 08:50 01/18/18 08:50 01/18/18 08:50 Intake and Output: 01/18/18 01/18/18 06:59 18:59 Intake Total 864 780 Output Total 400 240 Balance 464 540 - Medications Medications: Current Medications Acetylcysteine (Acetylcysteine 20%) 4 ml INH RQ6 [facility] Last Admin: 01/18/18 13:44 Dose: Not Given Albuterol/Ipratropium (Duoneb 3 Mg/0.5 Mg (3 Ml) Ud) 3 ml INH RQ6 [facility] Last Admin: 01/18/18 13:44 Dose: 3 ml Aspirin (Aspirin Chewable) 81 mg PEG DAILY [facility] Last Admin: 01/18/18 12:05 Dose: 81 mg Carvedilol (Coreg) 3.125 mg PEG BID [facility] Last Admin: 01/18/18 12:05 Dose: 3.125 mg Enoxaparin Sodium (Lovenox) 40 mg SC DAILY [facility] Last Admin: 01/18/18 12:05 Dose: 40 mg Famotidine (Pepcid) 20 mg PEG DAILY [facility] Last Admin: 01/18/18 12:05 Dose: 20 mg Finasteride (Proscar) 5 mg PEG DAILY [facility] Last Admin: 01/18/18 12:06 Dose: 5 mg Levetiracetam (Keppra) 500 mg PEG BID [facility] Last Admin: 01/18/18 12:06 Dose: 500 mg Rosuvastatin Calcium (Crestor) 2.5 mg PEG HS [facility] Last Admin: 01/17/18 21:30 Dose: 2.5 mg Saccharomyces Boulardii (Florastor) 250 mg PEG DAILY [facility] Last Admin: 01/18/18 12:05 Dose: 250 mg Scopolamine (Transderm-Scop) 1 patch TD Q3D [facility] Last Admin: 01/16/18 10:57 Dose: 1 patch - Labs Labs: 01/18/18 06:14 01/18/18 06:14 PT 10.6 SECONDS (9.7-12.2) 11/24/15 14:10 INR 1.0 11/24/15 14:10 APTT 25 SECONDS (21-34) 11/24/15 14:10 - Additional Findings Additional findings: - Head Exam Head Exam: ATRAUMATIC, NORMAL INSPECTION - Eye Exam Eye Exam: absent: EOMI, Normal appearance - ENT Exam ENT Exam: Mucous Membranes Moist - Neck Exam Additional comments: Tracheostomy in place - Respiratory Exam Respiratory Exam:Rhonchi. absent: Clear to Ausculation Bilateral (excessive mucous production), Respiratory Distress - Cardiovascular Exam Cardiovascular Exam: REGULAR RHYTHM, +S1, +S2 - GI/Abdominal Exam GI & Abdominal Exam: Distended, Soft, Hypoactive Bowel Sounds. absent: Firm, Mass Additional comments: PEG in place without erythema or swelling of surrounding skin - Extremities Exam Extremities Exam: absent: Pedal Edema - Neurological Exam Neurological Exam: Altered. absent: Alert, Awake, Oriented x3 - Psychiatric Exam Psychiatric exam: Altered (Patient is non-verbal from anoxic brain injury sustained on 05/2015). absent: Normal Affect, Normal Mood - Skin Skin Exam: Dry, Intact, Warm. Assessment and Plan - Assessment and Plan (Free Text) Plan: (1) Anoxic encephalopathy Assessment & Plan: * s/p cardiac arrest in 05/2015 * no acute changes in mental status. * Pt has non spontaneous movements. * patient is currently on 40cc/hr on tube feedings * via PEG * Aspirin 81mg daily * Plavix 75 mg daily * Keppra 500mg bid Status: Chronic (2) Acute Respiratory failure Assessment & Plan: * Trach in place, continue daily monitoring for secretions. No change in management at this time. * Continue with aggressive suctioning multiple times a day per respiratory therapist if secretions are thickened * Scopolamine 1 patch TD Q3D JOO * Duoneb 3ml INH RQ6 * Acetylcysteine 4ml INH RQ6 * Most recent chest xray: * 09/28/17: no active disease. No significant interval change compared to. Status: Chronic (3) History of Recurrent UTIs Assessment & Plan: * ID consult: Dr. Armstrong --> help appreciated * Patient is afebrile, no apparent leukocytosis * Patient is off IV abx since 08/05/17 * patient has condom catheter and Bladder scan PRN to prevent urinary retention Status: Acute (4) History of Urinary retention Assessment & Plan: * Bethanecol 50mg PEG TID * Tamsulosin 0.4mg PEG QD * Bladder scan up to 3x a week to monitor residual urine * patient has had history of recurrent UTIs Status: Chronic (5) Hypokalemia Assessment & Plan: * Monitor and replete Status: Acute (6) History of Sacral ulcer Assessment & Plan: * Healed * Cont with offloading/cushioning/turning * Continue frequent turning, protective ointment and skin checks. Status: Resolved (7) History of coronary artery disease Assessment & Plan: * s/p cardiac stents on 06/13/15 * Cont ASA 81mg via PEG daily * Cont Coreg 3.125mg PEG BID * Cont Plavix 75 mg PEG daily * Rosuvastatin 2.5mg PO HS Status: Acute (8) History of Seizures Assessment & Plan: * Continue Keppra 500mg PEG BID for seizure prophylaxis * Monitor for activity Status: Chronic (9) Lower extremity edema Assessment & Plan: * Improved * SCDs in place * Pressure ulcer boots on b/l * Continue to monitor Status: Chronic (10) Prophylactic measure Assessment & Plan: * Pepcid 20 mg PEG BID * Lovenox 40mg SC daily * SCDs and offloading boots * Saccharomyces 250mg PEG QD * continue to turn and reposition q2hrs * Continue to monitor medication administrations and clinical presentation weekly labs. 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 Per case management 10/08: unable to place patient. No changes at this time. <Jeison Moore - Last Filed: 01/19/18 17:26> Objective - Vital Signs/Intake and Output Vital Signs (last 24 hours): Temp Pulse Resp BP Pulse Ox 98.6 F 59 L 20 107/73 97 01/19/18 15:57 01/19/18 15:57 01/19/18 15:57 01/19/18 15:57 01/19/18 15:57 Intake and Output: 01/19/18 01/19/18 06:59 18:59 Intake Total 1720 Output Total 1050 Balance 670 - Medications Medications: Current Medications Acetylcysteine (Acetylcysteine 20%) 4 ml INH RQ6 [facility] Last Admin: 01/19/18 07:33 Dose: Not Given Albuterol/Ipratropium (Duoneb 3 Mg/0.5 Mg (3 Ml) Ud) 3 ml INH RQ6 [facility] Last Admin: 01/19/18 13:34 Dose: 3 ml Aspirin (Aspirin Chewable) 81 mg PEG DAILY [facility] Last Admin: 01/19/18 12:28 Dose: 81 mg Carvedilol (Coreg) 3.125 mg PEG BID [facility] Last Admin: 01/19/18 12:28 Dose: 3.125 mg Enoxaparin Sodium (Lovenox) 40 mg SC DAILY [facility] Last Admin: 01/19/18 12:28 Dose: 40 mg Famotidine (Pepcid) 20 mg PEG DAILY [facility] Last Admin: 01/19/18 12:28 Dose: 20 mg Finasteride (Proscar) 5 mg PEG DAILY [facility] Last Admin: 01/19/18 12:27 Dose: 5 mg Levetiracetam (Keppra) 500 mg PEG BID [facility] Last Admin: 01/19/18 13:51 Dose: 500 mg Rosuvastatin Calcium (Crestor) 2.5 mg PEG HS [facility] Last Admin: 01/18/18 21:56 Dose: 2.5 mg Saccharomyces Boulardii (Florastor) 250 mg PEG DAILY [facility] Last Admin: 01/19/18 12:27 Dose: 250 mg Scopolamine (Transderm-Scop) 1 patch TD Q3D [facility] Last Admin: 01/19/18 12:29 Dose: 1 patch - Labs Labs: 01/18/18 06:14 01/18/18 06:14 PT 10.6 SECONDS (9.7-12.2) 11/24/15 14:10 INR 1.0 11/24/15 14:10 APTT 25 SECONDS (21-34) 11/24/15 14:10 Attending/Attestation - Attestation I have personally seen and examined this patient.: No I have fully participated in the care of the patient.: Yes I have reviewed all pertinent clinical information, including history, physical exam and plan: Yes
[2018-01-18] MEDS: Rosuvastatin Calcium 2.5 mg Tab PEG SCH (21:56)
[2018-01-19] MEDS: Albuterol-Ipratrop 3 mg / 0.5 (3 ml) UD INH SCH ×4 (02:22→20:11)
[2018-01-19] MEDS: Acetylcysteine 20% Inhal Soln (4ml) INH SCH ×3 (02:23→20:11)
[2018-01-19] MEDS: Saccharomyces Boulardi 250 mg Cap PEG SCH (12:27)
[2018-01-19] MEDS: Enoxaparin 40 mg Syringe SC SCH (12:28)
[2018-01-19] MEDS: levETIRAcetam 100 mg/ml (5ml) Oral Syringe PEG SCH ×2 (13:51→17:52)
[2018-01-19] MEDS: Rosuvastatin Calcium 2.5 mg Tab PEG SCH (21:45)
[2018-01-20] MEDS: Acetylcysteine 20% Inhal Soln (4ml) INH SCH ×4 (01:21→20:33)
[2018-01-20] MEDS: Albuterol-Ipratrop 3 mg / 0.5 (3 ml) UD INH SCH ×4 (01:21→20:33)
[2018-01-20] MEDS: Enoxaparin 40 mg Syringe SC SCH (10:53)
[2018-01-20] MEDS: Saccharomyces Boulardi 250 mg Cap PEG SCH (10:55)
[2018-01-20] MEDS: levETIRAcetam 100 mg/ml (5ml) Oral Syringe PEG SCH ×2 (10:55→17:34)
--- NOTE | 2018-01-20 13:18 | CP.PCM.PN ---
<Judith Martinez - Last Filed: 01/20/18 13:16> Subjective - Date & Time of Evaluation Date of Evaluation: 01/20/18 Time of Evaluation: 07:50 - Subjective Subjective: Patient seen and examined at bedside. No acute events overnight. Unable to obtain ROS due to anoxic brain injury. Objective - Vital Signs/Intake and Output Vital Signs (last 24 hours): Temp Pulse Resp BP Pulse Ox 97.9 F 69 20 110/77 98 01/20/18 08:35 01/20/18 08:35 01/20/18 08:35 01/20/18 08:35 01/20/18 08:35 Intake and Output: 01/20/18 01/20/18 06:59 18:59 Intake Total 1474 Output Total 551 Balance 923 - Medications Medications: Current Medications Acetylcysteine (Acetylcysteine 20%) 4 ml INH RQ6 [facility] Last Admin: 01/20/18 07:54 Dose: Not Given Albuterol/Ipratropium (Duoneb 3 Mg/0.5 Mg (3 Ml) Ud) 3 ml INH RQ6 [facility] Last Admin: 01/20/18 07:25 Dose: 3 ml Aspirin (Aspirin Chewable) 81 mg PEG DAILY [facility] Last Admin: 01/20/18 10:53 Dose: 81 mg Carvedilol (Coreg) 3.125 mg PEG BID [facility] Last Admin: 01/20/18 10:53 Dose: 3.125 mg Enoxaparin Sodium (Lovenox) 40 mg SC DAILY [facility] Last Admin: 01/20/18 10:53 Dose: 40 mg Famotidine (Pepcid) 20 mg PEG DAILY [facility] Last Admin: 01/20/18 10:53 Dose: 20 mg Finasteride (Proscar) 5 mg PEG DAILY [facility] Last Admin: 01/20/18 10:55 Dose: 5 mg Levetiracetam (Keppra) 500 mg PEG BID [facility] Last Admin: 01/20/18 10:55 Dose: 500 mg Rosuvastatin Calcium (Crestor) 2.5 mg PEG HS [facility] Last Admin: 01/19/18 21:45 Dose: 2.5 mg Saccharomyces Boulardii (Florastor) 250 mg PEG DAILY [facility] Last Admin: 01/20/18 10:55 Dose: 250 mg Scopolamine (Transderm-Scop) 1 patch TD Q3D [facility] Last Admin: 01/19/18 12:29 Dose: 1 patch - Labs Labs: 01/18/18 06:14 01/18/18 06:14 PT 10.6 SECONDS (9.7-12.2) 11/24/15 14:10 INR 1.0 11/24/15 14:10 APTT 25 SECONDS (21-34) 11/24/15 14:10 - Additional Findings Additional findings: - Head Exam Head Exam: ATRAUMATIC, NORMAL INSPECTION - Eye Exam Eye Exam: absent: EOMI, Normal appearance - ENT Exam ENT Exam: Mucous Membranes Moist - Neck Exam Additional comments: Tracheostomy in place - Respiratory Exam Respiratory Exam:Rhonchi. absent: Clear to Ausculation Bilateral (excessive mucous production), Respiratory Distress - Cardiovascular Exam Cardiovascular Exam: REGULAR RHYTHM, +S1, +S2 - GI/Abdominal Exam GI & Abdominal Exam: Distended, Soft, Hypoactive Bowel Sounds. absent: Firm, Mass Additional comments: PEG in place without erythema or swelling of surrounding skin - Extremities Exam Extremities Exam: absent: Pedal Edema - Neurological Exam Neurological Exam: Altered. absent: Alert, Awake, Oriented x3 - Psychiatric Exam Psychiatric exam: Altered (Patient is non-verbal from anoxic brain injury sustained on 05/2015). absent: Normal Affect, Normal Mood - Skin Skin Exam: Dry, Intact, Warm. Assessment and Plan - Assessment and Plan (Free Text) Plan: (1) Anoxic encephalopathy Assessment & Plan: * s/p cardiac arrest in 05/2015 * no acute changes in mental status. * Pt has non spontaneous movements. * patient is currently on 40cc/hr on tube feedings * via PEG * Aspirin 81mg daily * Plavix 75 mg daily * Keppra 500mg bid Status: Chronic (2) Acute Respiratory failure Assessment & Plan: * Trach in place, continue daily monitoring for secretions. No change in management at this time. * Continue with aggressive suctioning multiple times a day per respiratory therapist if secretions are thickened * Scopolamine 1 patch TD Q3D JOO * Duoneb 3ml INH RQ6 * Acetylcysteine 4ml INH RQ6 * Most recent chest xray: * 09/28/17: no active disease. No significant interval change compared to. Status: Chronic (3) History of Recurrent UTIs Assessment & Plan: * ID consult: Dr. Armstrong --> help appreciated * Patient is afebrile, no apparent leukocytosis * Patient is off IV abx since 08/05/17 * patient has condom catheter and Bladder scan PRN to prevent urinary retention Status: Acute (4) History of Urinary retention Assessment & Plan: * Bethanecol 50mg PEG TID * Tamsulosin 0.4mg PEG QD * Bladder scan up to 3x a week to monitor residual urine * patient has had history of recurrent UTIs Status: Chronic (5) Hypokalemia Assessment & Plan: * Monitor and replete Status: Acute (6) History of Sacral ulcer Assessment & Plan: * Healed * Cont with offloading/cushioning/turning * Continue frequent turning, protective ointment and skin checks. Status: Resolved (7) History of coronary artery disease Assessment & Plan: * s/p cardiac stents on 06/13/15 * Cont ASA 81mg via PEG daily * Cont Coreg 3.125mg PEG BID * Cont Plavix 75 mg PEG daily * Rosuvastatin 2.5mg PO HS Status: Acute (8) History of Seizures Assessment & Plan: * Continue Keppra 500mg PEG BID for seizure prophylaxis * Monitor for activity Status: Chronic (9) Lower extremity edema Assessment & Plan: * Improved * SCDs in place * Pressure ulcer boots on b/l * Continue to monitor Status: Chronic (10) Prophylactic measure Assessment & Plan: * Pepcid 20 mg PEG BID * Lovenox 40mg SC daily * SCDs and offloading boots * Saccharomyces 250mg PEG QD * continue to turn and reposition q2hrs * Continue to monitor medication administrations and clinical presentation weekly labs. 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 Per case management 10/08: unable to place patient. No changes at this time. <Jeison Moore - Last Filed: 01/20/18 16:14> Objective - Vital Signs/Intake and Output Vital Signs (last 24 hours): Temp Pulse Resp BP Pulse Ox 97.9 F 69 20 110/77 98 01/20/18 08:35 01/20/18 08:35 01/20/18 08:35 01/20/18 08:35 01/20/18 08:35 Intake and Output: 01/20/18 01/20/18 06:59 18:59 Intake Total 1474 Output Total 551 700 Balance 923 -700 - Medications Medications: Current Medications Acetylcysteine (Acetylcysteine 20%) 4 ml INH RQ6 [facility] Last Admin: 01/20/18 13:34 Dose: Not Given Albuterol/Ipratropium (Duoneb 3 Mg/0.5 Mg (3 Ml) Ud) 3 ml INH RQ6 [facility] Last Admin: 01/20/18 13:33 Dose: 3 ml Aspirin (Aspirin Chewable) 81 mg PEG DAILY [facility] Last Admin: 01/20/18 10:53 Dose: 81 mg Carvedilol (Coreg) 3.125 mg PEG BID [facility] Last Admin: 01/20/18 10:53 Dose: 3.125 mg Enoxaparin Sodium (Lovenox) 40 mg SC DAILY [facility] Last Admin: 01/20/18 10:53 Dose: 40 mg Famotidine (Pepcid) 20 mg PEG DAILY [facility] Last Admin: 01/20/18 10:53 Dose: 20 mg Finasteride (Proscar) 5 mg PEG DAILY [facility] Last Admin: 01/20/18 10:55 Dose: 5 mg Levetiracetam (Keppra) 500 mg PEG BID [facility] Last Admin: 01/20/18 10:55 Dose: 500 mg Rosuvastatin Calcium (Crestor) 2.5 mg PEG HS [facility] Last Admin: 01/19/18 21:45 Dose: 2.5 mg Saccharomyces Boulardii (Florastor) 250 mg PEG DAILY [facility] Last Admin: 01/20/18 10:55 Dose: 250 mg Scopolamine (Transderm-Scop) 1 patch TD Q3D [facility] Last Admin: 01/19/18 12:29 Dose: 1 patch - Labs Labs: 01/18/18 06:14 01/18/18 06:14 PT 10.6 SECONDS (9.7-12.2) 11/24/15 14:10 INR 1.0 11/24/15 14:10 APTT 25 SECONDS (21-34) 11/24/15 14:10 Attending/Attestation - Attestation I have personally seen and examined this patient.: Yes I have fully participated in the care of the patient.: Yes I have reviewed all pertinent clinical information, including history, physical exam and plan: Yes Notes (Text): Patient was seen and examined No changes noted continue current care I agree with the resident's documentation of the assessment and the plan 01/20/18 16:13
[2018-01-20] MEDS: Rosuvastatin Calcium 2.5 mg Tab PEG SCH (21:40)
[2018-01-21] MEDS: Albuterol-Ipratrop 3 mg / 0.5 (3 ml) UD INH SCH ×4 (02:18→20:50)
[2018-01-21] MEDS: Acetylcysteine 20% Inhal Soln (4ml) INH SCH ×4 (02:19→20:50)
[2018-01-21] MEDS: Saccharomyces Boulardi 250 mg Cap PEG SCH (10:23)
[2018-01-21] MEDS: Enoxaparin 40 mg Syringe SC SCH (10:23)
[2018-01-21] MEDS: levETIRAcetam 100 mg/ml (5ml) Oral Syringe PEG SCH ×2 (10:24→17:28)
[2018-01-21] MEDS: Rosuvastatin Calcium 2.5 mg Tab PEG SCH (22:16)
[2018-01-22] MEDS: Albuterol-Ipratrop 3 mg / 0.5 (3 ml) UD INH SCH ×4 (01:19→19:34)
[2018-01-22] MEDS: Acetylcysteine 20% Inhal Soln (4ml) INH SCH ×4 (01:19→19:34)
[2018-01-22] MEDS: Enoxaparin 40 mg Syringe SC SCH (10:35)
[2018-01-22] MEDS: levETIRAcetam 100 mg/ml (5ml) Oral Syringe PEG SCH ×2 (10:36→18:01)
[2018-01-22] MEDS: Saccharomyces Boulardi 250 mg Cap PEG SCH (10:36)
--- NOTE | 2018-01-22 16:41 | CP.PCM.PN ---
<Al Srivastava - Last Filed: 01/22/18 16:38> Subjective - Date & Time of Evaluation Date of Evaluation: 01/22/18 Time of Evaluation: 08:50 - Subjective Subjective: PGY [address] Moore Patient was seen and examined at bedside this morning. No acute events over night. Patient had anoxic brain injury. ROS unattainable. Objective - Vital Signs/Intake and Output Vital Signs (last 24 hours): Temp Pulse Resp BP Pulse Ox 98.2 F 65 20 103/65 98 01/22/18 00:00 01/22/18 00:00 01/22/18 00:00 01/22/18 00:00 01/22/18 00:00 Intake and Output: 01/22/18 01/22/18 06:59 18:59 Intake Total 1474 Output Total 601 Balance 873 - Medications Medications: Current Medications Acetylcysteine (Acetylcysteine 20%) 4 ml INH RQ6 [facility] Last Admin: 01/22/18 13:44 Dose: Not Given Albuterol/Ipratropium (Duoneb 3 Mg/0.5 Mg (3 Ml) Ud) 3 ml INH RQ6 [facility] Last Admin: 01/22/18 13:44 Dose: 3 ml Aspirin (Aspirin Chewable) 81 mg PEG DAILY [facility] Last Admin: 01/22/18 10:34 Dose: 81 mg Carvedilol (Coreg) 3.125 mg PEG BID [facility] Last Admin: 01/22/18 10:36 Dose: 3.125 mg Enoxaparin Sodium (Lovenox) 40 mg SC DAILY [facility] Last Admin: 01/22/18 10:35 Dose: 40 mg Famotidine (Pepcid) 20 mg PEG DAILY [facility] Last Admin: 01/22/18 10:35 Dose: 20 mg Finasteride (Proscar) 5 mg PEG DAILY [facility] Last Admin: 01/22/18 10:35 Dose: 5 mg Levetiracetam (Keppra) 500 mg PEG BID [facility] Last Admin: 01/22/18 10:36 Dose: 500 mg Mupirocin (Bactroban Ointment) 0 gm TOP DAILY [facility] Last Admin: 01/22/18 13:49 Dose: 1 applic Rosuvastatin Calcium (Crestor) 2.5 mg PEG HS [facility] Last Admin: 01/21/18 22:16 Dose: 2.5 mg Saccharomyces Boulardii (Florastor) 250 mg PEG DAILY [facility] Last Admin: 01/22/18 10:36 Dose: 250 mg Scopolamine (Transderm-Scop) 1 patch TD Q3D [facility] Last Admin: 01/22/18 10:34 Dose: 1 patch - Labs Labs: 01/18/18 06:14 01/18/18 06:14 PT 10.6 SECONDS (9.7-12.2) 11/24/15 14:10 INR 1.0 11/24/15 14:10 APTT 25 SECONDS (21-34) 11/24/15 14:10 - Constitutional Appears: Non-toxic, No Acute Distress - Head Exam Head Exam: ATRAUMATIC, NORMOCEPHALIC - Eye Exam Eye Exam: EOMI - ENT Exam ENT Exam: Mucous Membranes Moist - Respiratory Exam Respiratory Exam: Clear to Ausculation Bilateral, NORMAL BREATHING PATTERN. absent: Accessory Muscle Use, Rales, Rhonchi, Wheezes, Respiratory Distress - Cardiovascular Exam Cardiovascular Exam: REGULAR RHYTHM, +S1, +S2 - GI/Abdominal Exam GI & Abdominal Exam: Soft, Normal Bowel Sounds. absent: Distended, Firm, Guarding, Rigid, Tenderness Additional comments: PEG in place without erythema or swelling of surrounding skin - Extremities Exam Additional comments: SCDs and pressure ulcer boots in place. - Neurological Exam Neurological Exam: Altered (anoxic brain injury ). absent: Alert, Awake - Psychiatric Exam Psychiatric exam: absent: Normal Affect, Normal Mood - Skin Skin Exam: Dry, Warm Assessment and Plan - Assessment and Plan (Free Text) Plan: (1) Anoxic encephalopathy Assessment & Plan: * s/p cardiac arrest in 05/2015 * no acute changes in mental status. * Pt has non spontaneous movements. * patient is currently on 40cc/hr on tube feedings * via PEG * Aspirin 81mg daily * Plavix 75 mg daily * Keppra 500mg bid Status: Chronic (2) Acute Respiratory failure Assessment & Plan: * Trach in place, continue daily monitoring for secretions. No change in management at this time. * Continue with aggressive suctioning multiple times a day per respiratory therapist if secretions are thickened * Scopolamine 1 patch TD Q3D [facility] * Duoneb 3ml INH RQ6 * Acetylcysteine 4ml INH RQ6 * Most recent chest xray: * 09/28/17: no active disease. No significant interval change compared to. Status: Chronic (3) History of Recurrent UTIs Assessment & Plan: * ID consult: Dr. Armstrong --> help appreciated * Patient is afebrile, no apparent leukocytosis * Patient is off IV abx since 08/05/17 * patient has condom catheter and Bladder scan PRN to prevent urinary retention Status: Acute (4) History of Urinary retention Assessment & Plan: * Bethanecol 50mg PEG TID * Tamsulosin 0.4mg PEG QD * Bladder scan up to 3x a week to monitor residual urine * patient has had history of recurrent UTIs Status: Chronic (5) Hypokalemia Assessment & Plan: * Monitor and replete Status: Acute (6) History of Sacral ulcer Assessment & Plan: * Healed * Cont with offloading/cushioning/turning * Continue frequent turning, protective ointment and skin checks. Status: Resolved (7) History of coronary artery disease Assessment & Plan: * s/p cardiac stents on 06/13/15 * Cont ASA 81mg via PEG daily * Cont Coreg 3.125mg PEG BID * Cont Plavix 75 mg PEG daily * Rosuvastatin 2.5mg PO HS Status: Acute (8) History of Seizures Assessment & Plan: * Continue Keppra 500mg PEG BID for seizure prophylaxis * Monitor for activity Status: Chronic (9) Lower extremity edema Assessment & Plan: * Improved * SCDs in place * Pressure ulcer boots on b/l * Continue to monitor Status: Chronic (10) Prophylactic measure Assessment & Plan: * Pepcid 20 mg PEG BID * Lovenox 40mg SC daily * SCDs and offloading boots * Saccharomyces 250mg PEG QD * continue to turn and reposition q2hrs * Continue to monitor medication administrations and clinical presentation weekly labs. 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 Per case management 10/08: unable to place patient. No changes at this time. Case discussed with Dr. Teresa Srivastava PGY1 <Jeison Moore - Last Filed: 01/27/18 13:41> Objective - Vital Signs/Intake and Output Vital Signs (last 24 hours): Temp Pulse Resp BP Pulse Ox 98.2 F 88 20 115/75 99 01/27/18 08:10 01/27/18 08:10 01/27/18 08:10 01/27/18 08:10 01/27/18 08:10 Intake and Output: 01/27/18 01/27/18 06:59 18:59 Intake Total 860 660 Output Total 400 350 Balance 460 310 - Medications Medications: Current Medications Albuterol/Ipratropium (Duoneb 3 Mg/0.5 Mg (3 Ml) Ud) 3 ml INH RQ6 [facility] Last Admin: 01/27/18 07:31 Dose: 3 ml Aspirin (Aspirin Chewable) 81 mg PEG DAILY [facility] Last Admin: 01/27/18 09:38 Dose: 81 mg Carvedilol (Coreg) 3.125 mg PEG BID [facility] Last Admin: 01/27/18 09:39 Dose: 3.125 mg Enoxaparin Sodium (Lovenox) 40 mg SC DAILY [facility] Last Admin: 01/27/18 09:40 Dose: 40 mg Famotidine (Pepcid) 20 mg PEG DAILY [facility] Last Admin: 01/27/18 09:40 Dose: 20 mg Finasteride (Proscar) 5 mg PEG DAILY [facility] Last Admin: 01/27/18 09:41 Dose: 5 mg Levetiracetam (Keppra) 500 mg PEG BID [facility] Last Admin: 01/27/18 09:40 Dose: 500 mg Mupirocin (Bactroban Ointment) 0 gm TOP DAILY [facility] Last Admin: 01/27/18 09:56 Dose: 1 applic Rosuvastatin Calcium (Crestor) 2.5 mg PEG HS [facility] Last Admin: 01/26/18 21:27 Dose: 2.5 mg Saccharomyces Boulardii (Florastor) 250 mg PEG DAILY [facility] Last Admin: 01/27/18 09:39 Dose: 250 mg Scopolamine (Transderm-Scop) 1 patch TD Q3D [facility] Last Admin: 01/25/18 10:03 Dose: 1 patch - Labs Labs: 01/25/18 07:40 01/25/18 07:40 PT 10.6 SECONDS (9.7-12.2) 11/24/15 14:10 INR 1.0 11/24/15 14:10 APTT 25 SECONDS (21-34) 11/24/15 14:10 Attending/Attestation - Attestation I have personally seen and examined this patient.: No I have fully participated in the care of the patient.: Yes I have reviewed all pertinent clinical information, including history, physical exam and plan: Yes
[2018-01-22] MEDS: Rosuvastatin Calcium 2.5 mg Tab PEG SCH (21:20)
[2018-01-23] MEDS: Acetylcysteine 20% Inhal Soln (4ml) INH SCH ×4 (01:45→19:22)
[2018-01-23] MEDS: Albuterol-Ipratrop 3 mg / 0.5 (3 ml) UD INH SCH ×4 (01:45→19:17)
[2018-01-23] MEDS: levETIRAcetam 100 mg/ml (5ml) Oral Syringe PEG SCH ×2 (10:24→17:38)
[2018-01-23] MEDS: Saccharomyces Boulardi 250 mg Cap PEG SCH (10:24)
[2018-01-23] MEDS: Enoxaparin 40 mg Syringe SC SCH (10:25)
[2018-01-23] MEDS: Rosuvastatin Calcium 2.5 mg Tab PEG SCH (21:35)
[2018-01-24] MEDS: Albuterol-Ipratrop 3 mg / 0.5 (3 ml) UD INH SCH ×4 (03:13→19:41)
[2018-01-24] MEDS: Acetylcysteine 20% Inhal Soln (4ml) INH SCH ×4 (03:13→19:41)
[2018-01-24] MEDS: levETIRAcetam 100 mg/ml (5ml) Oral Syringe PEG SCH ×2 (10:05→18:45)
[2018-01-24] MEDS: Enoxaparin 40 mg Syringe SC SCH (10:05)
[2018-01-24] MEDS: Saccharomyces Boulardi 250 mg Cap PEG SCH (10:05)
[2018-01-24] MEDS: Rosuvastatin Calcium 2.5 mg Tab PEG SCH (21:15)
[2018-01-25] MEDS: Albuterol-Ipratrop 3 mg / 0.5 (3 ml) UD INH SCH ×4 (01:34→19:10)
[2018-01-25] MEDS: Acetylcysteine 20% Inhal Soln (4ml) INH SCH ×2 (01:53→07:30)
[2018-01-25 07:54] LABS: BASO # 0.1 K/uL (0.0-0.2); BASO % 0.5 % (0.0-2.0); EOS # 0.3 K/uL (0.0-0.7); EOS % 3.4 % (0.0-4.0); HEMOGLOBIN 12.2 g/dL (12.0-18.0); LYMPH # 2.8 K/uL (1.0-4.3); LYMPH % 27.6 % (20.0-40.0); MEAN CORPUSCULAR HEMOGLOBIN 29.4 pg (27.0-31.0); MEAN CORPUSCULAR HGB CONC 33.8 g/dL (33.0-37.0); MEAN PLATELET VOLUME 9.6 fL (7.2-11.7); MONO # 1.2 K/uL (0.0-0.8); MONO % 11.9 % (0.0-10.0); NEUT # 5.8 K/uL (1.8-7.0); NEUT % 56.6 % (50.0-75.0); NRBC % 0.1 % (0.0-2.0); RBC 4.15 Mil/uL (4.40-5.90); RED CELL DISTRIBUTION WIDTH 15.3 % (11.5-14.5); WHITE BLOOD COUNT 10.2 K/uL (4.8-10.8)
[2018-01-25 08:10] LABS: ALB/GLOB RATIO 0.9 (1.0-2.1); ALBUMIN 3.5 g/dL (3.5-5.0); ALT/SGPT 45 U/L (21-72); AST/SGOT 17 U/L (17-59); BLOOD UREA NITROGEN 13 mg/dL (9-20); CALCIUM 8.5 mg/dl (8.6-10.4); GFR NON-AFRICAN AMERICAN > 60
[2018-01-25] MEDS: levETIRAcetam 100 mg/ml (5ml) Oral Syringe PEG SCH ×2 (10:00→17:00)
[2018-01-25] MEDS: Saccharomyces Boulardi 250 mg Cap PEG SCH (10:05)
[2018-01-25] MEDS: Enoxaparin 40 mg Syringe SC SCH (10:06)
--- NOTE | 2018-01-25 14:42 | CP.PCM.PN ---
Subjective - Date & Time of Evaluation Date of Evaluation: 01/25/18 Time of Evaluation: 07:20 - Subjective Subjective: Patient seen and examined at bedside. No acute events overnight. Unable to obtain ROS due to anoxic brain injury. Objective - Vital Signs/Intake and Output Vital Signs (last 24 hours): Temp Pulse Resp BP Pulse Ox 98 F 64 20 103/73 99 01/25/18 07:17 01/25/18 07:17 01/25/18 07:17 01/25/18 07:17 01/25/18 07:17 Intake and Output: 01/25/18 01/25/18 06:59 18:59 Intake Total 1220 Output Total 450 Balance 770 - Medications Medications: Current Medications Albuterol/Ipratropium (Duoneb 3 Mg/0.5 Mg (3 Ml) Ud) 3 ml INH RQ6 [facility] Last Admin: 01/25/18 13:25 Dose: 3 ml Aspirin (Aspirin Chewable) 81 mg PEG DAILY [facility] Last Admin: 01/25/18 10:00 Dose: 81 mg Carvedilol (Coreg) 3.125 mg PEG BID [facility] Last Admin: 01/25/18 10:00 Dose: 3.125 mg Enoxaparin Sodium (Lovenox) 40 mg SC DAILY [facility] Last Admin: 01/25/18 10:06 Dose: 40 mg Famotidine (Pepcid) 20 mg PEG DAILY [facility] Last Admin: 01/25/18 10:00 Dose: 20 mg Finasteride (Proscar) 5 mg PEG DAILY [facility] Last Admin: 01/25/18 10:00 Dose: 5 mg Levetiracetam (Keppra) 500 mg PEG BID [facility] Last Admin: 01/25/18 10:00 Dose: 500 mg Mupirocin (Bactroban Ointment) 0 gm TOP DAILY [facility] Last Admin: 01/25/18 10:19 Dose: 1 applic Rosuvastatin Calcium (Crestor) 2.5 mg PEG HS [facility] Last Admin: 01/24/18 21:15 Dose: 2.5 mg Saccharomyces Boulardii (Florastor) 250 mg PEG DAILY [facility] Last Admin: 01/25/18 10:05 Dose: 250 mg Scopolamine (Transderm-Scop) 1 patch TD Q3D [facility] Last Admin: 01/25/18 10:03 Dose: 1 patch - Labs Labs: 01/25/18 07:40 01/25/18 07:40 PT 10.6 SECONDS (9.7-12.2) 11/24/15 14:10 INR 1.0 11/24/15 14:10 APTT 25 SECONDS (21-34) 11/24/15 14:10 - Additional Findings Additional findings: - Head Exam Head Exam: ATRAUMATIC, NORMAL INSPECTION - Eye Exam Eye Exam: absent: EOMI, Normal appearance - ENT Exam ENT Exam: Mucous Membranes Moist - Neck Exam Additional comments: Tracheostomy in place - Respiratory Exam Respiratory Exam:Rhonchi. absent: Clear to Ausculation Bilateral (excessive mucous production), Respiratory Distress - Cardiovascular Exam Cardiovascular Exam: REGULAR RHYTHM, +S1, +S2 - GI/Abdominal Exam GI & Abdominal Exam: Distended, Soft, Hypoactive Bowel Sounds. absent: Firm, Mass Additional comments: PEG in place without erythema or swelling of surrounding skin - Extremities Exam Extremities Exam: absent: Pedal Edema - Neurological Exam Neurological Exam: Altered. absent: Alert, Awake, Oriented x3 - Psychiatric Exam Psychiatric exam: Altered (Patient is non-verbal from anoxic brain injury sustained on 05/2015). absent: Normal Affect, Normal Mood - Skin Skin Exam: Dry, Intact, Warm. Assessment and Plan - Assessment and Plan (Free Text) Plan: (1) Anoxic encephalopathy Assessment & Plan: * s/p cardiac arrest in 05/2015 * no acute changes in mental status. * Pt has non spontaneous movements. * patient is currently on 40cc/hr on tube feedings * via PEG * Aspirin 81mg daily * Plavix 75 mg daily * Keppra 500mg bid Status: Chronic (2) Acute Respiratory failure Assessment & Plan: * Trach in place, continue daily monitoring for secretions. No change in management at this time. * Continue with aggressive suctioning multiple times a day per respiratory therapist if secretions are thickened * Scopolamine 1 patch TD Q3D [facility] * Duoneb 3ml INH RQ6 * Acetylcysteine 4ml INH RQ6 * Most recent chest xray: * 09/28/17: no active disease. No significant interval change compared to. Status: Chronic (3) History of Recurrent UTIs Assessment & Plan: * ID consult: Dr. Armstrong --> help appreciated * Patient is afebrile, no apparent leukocytosis * Patient is off IV abx since 08/05/17 * patient has condom catheter and Bladder scan PRN to prevent urinary retention Status: Acute (4) History of Urinary retention Assessment & Plan: * Bethanecol 50mg PEG TID * Tamsulosin 0.4mg PEG QD * Bladder scan up to 3x a week to monitor residual urine * patient has had history of recurrent UTIs Status: Chronic (5) Hypokalemia Assessment & Plan: * Monitor and replete Status: Acute (6) History of Sacral ulcer Assessment & Plan: * Healed * Cont with offloading/cushioning/turning * Continue frequent turning, protective ointment and skin checks. Status: Resolved (7) History of coronary artery disease Assessment & Plan: * s/p cardiac stents on 06/13/15 * Cont ASA 81mg via PEG daily * Cont Coreg 3.125mg PEG BID * Cont Plavix 75 mg PEG daily * Rosuvastatin 2.5mg PO HS Status: Acute (8) History of Seizures Assessment & Plan: * Continue Keppra 500mg PEG BID for seizure prophylaxis * Monitor for activity Status: Chronic (9) Lower extremity edema Assessment & Plan: * Improved * SCDs in place * Pressure ulcer boots on b/l * Continue to monitor Status: Chronic (10) Prophylactic measure Assessment & Plan: * Pepcid 20 mg PEG BID * Lovenox 40mg SC daily * SCDs and offloading boots * Saccharomyces 250mg PEG QD * continue to turn and reposition q2hrs * Continue to monitor medication administrations and clinical presentation weekly labs. 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 Per case management 10/08: unable to place patient. No changes at this time.
[2018-01-25] MEDS: Rosuvastatin Calcium 2.5 mg Tab PEG SCH (21:14)
[2018-01-26] MEDS: Albuterol-Ipratrop 3 mg / 0.5 (3 ml) UD INH SCH ×4 (02:24→19:12)
[2018-01-26] MEDS: Saccharomyces Boulardi 250 mg Cap PEG SCH (09:20)
[2018-01-26] MEDS: Enoxaparin 40 mg Syringe SC SCH (09:22)
[2018-01-26] MEDS: levETIRAcetam 100 mg/ml (5ml) Oral Syringe PEG SCH ×2 (09:22→17:40)
[2018-01-26] MEDS: Rosuvastatin Calcium 2.5 mg Tab PEG SCH (21:27)
[2018-01-27] MEDS: Albuterol-Ipratrop 3 mg / 0.5 (3 ml) UD INH SCH ×4 (01:53→19:01)
--- NOTE | 2018-01-27 08:54 | CP.PCM.PN ---
Subjective - Date & Time of Evaluation Date of Evaluation: 01/27/18 Time of Evaluation: 08:53 - Subjective Subjective: Patient seen and examined at bedside. No acute events overnight. Unable to obtain ROS due to anoxic brain injury. Objective - Vital Signs/Intake and Output Vital Signs (last 24 hours): Temp Pulse Resp BP Pulse Ox 98.2 F 88 20 115/75 99 01/27/18 08:10 01/27/18 08:10 01/27/18 08:10 01/27/18 08:10 01/27/18 08:10 Intake and Output: 01/27/18 01/27/18 06:59 18:59 Intake Total 860 660 Output Total 400 350 Balance 460 310 - Medications Medications: Current Medications Albuterol/Ipratropium (Duoneb 3 Mg/0.5 Mg (3 Ml) Ud) 3 ml INH RQ6 [facility] Last Admin: 01/27/18 07:31 Dose: 3 ml Aspirin (Aspirin Chewable) 81 mg PEG DAILY [facility] Last Admin: 01/26/18 09:20 Dose: 81 mg Carvedilol (Coreg) 3.125 mg PEG BID [facility] Last Admin: 01/26/18 17:40 Dose: 3.125 mg Enoxaparin Sodium (Lovenox) 40 mg SC DAILY [facility] Last Admin: 01/26/18 09:22 Dose: 40 mg Famotidine (Pepcid) 20 mg PEG DAILY [facility] Last Admin: 01/26/18 09:22 Dose: 20 mg Finasteride (Proscar) 5 mg PEG DAILY [facility] Last Admin: 01/26/18 09:22 Dose: 5 mg Levetiracetam (Keppra) 500 mg PEG BID [facility] Last Admin: 01/26/18 17:40 Dose: 500 mg Mupirocin (Bactroban Ointment) 0 gm TOP DAILY [facility] Last Admin: 01/25/18 10:19 Dose: 1 applic Rosuvastatin Calcium (Crestor) 2.5 mg PEG HS [facility] Last Admin: 01/26/18 21:27 Dose: 2.5 mg Saccharomyces Boulardii (Florastor) 250 mg PEG DAILY [facility] Last Admin: 01/26/18 09:20 Dose: 250 mg Scopolamine (Transderm-Scop) 1 patch TD Q3D [facility] Last Admin: 01/25/18 10:03 Dose: 1 patch - Labs Labs: 01/25/18 07:40 01/25/18 07:40 PT 10.6 SECONDS (9.7-12.2) 11/24/15 14:10 INR 1.0 11/24/15 14:10 APTT 25 SECONDS (21-34) 11/24/15 14:10 - Additional Findings Additional findings: - Head Exam Head Exam: ATRAUMATIC, NORMAL INSPECTION - Eye Exam Eye Exam: absent: EOMI, Normal appearance - ENT Exam ENT Exam: Mucous Membranes Moist - Neck Exam Additional comments: Tracheostomy in place - Respiratory Exam Respiratory Exam:Rhonchi. absent: Clear to Ausculation Bilateral (excessive mucous production), Respiratory Distress - Cardiovascular Exam Cardiovascular Exam: REGULAR RHYTHM, +S1, +S2 - GI/Abdominal Exam GI & Abdominal Exam: Distended, Soft, Hypoactive Bowel Sounds. absent: Firm, Mass Additional comments: PEG in place without erythema or swelling of surrounding skin - Extremities Exam Extremities Exam: absent: Pedal Edema - Neurological Exam Neurological Exam: Altered. absent: Alert, Awake, Oriented x3 - Psychiatric Exam Psychiatric exam: Altered (Patient is non-verbal from anoxic brain injury sustained on 05/2015). absent: Normal Affect, Normal Mood - Skin Skin Exam: Dry, Intact, Warm. Assessment and Plan - Assessment and Plan (Free Text) Plan: (1) Anoxic encephalopathy Assessment & Plan: * s/p cardiac arrest in 05/2015 * no acute changes in mental status. * Pt has non spontaneous movements. * patient is currently on 40cc/hr on tube feedings * via PEG * Aspirin 81mg daily * Plavix 75 mg daily * Keppra 500mg bid Status: Chronic (2) Acute Respiratory failure Assessment & Plan: * Trach in place, continue daily monitoring for secretions. No change in management at this time. * Continue with aggressive suctioning multiple times a day per respiratory therapist if secretions are thickened * Scopolamine 1 patch TD Q3D [facility] * Duoneb 3ml INH RQ6 * Acetylcysteine 4ml INH RQ6 * Most recent chest xray: * 09/28/17: no active disease. No significant interval change compared to. Status: Chronic (3) History of Recurrent UTIs Assessment & Plan: * ID consult: Dr. Armstrong --> help appreciated * Patient is afebrile, no apparent leukocytosis * Patient is off IV abx since 08/05/17 * patient has condom catheter and Bladder scan PRN to prevent urinary retention Status: Acute (4) History of Urinary retention Assessment & Plan: * Bethanecol 50mg PEG TID * Tamsulosin 0.4mg PEG QD * Bladder scan up to 3x a week to monitor residual urine * patient has had history of recurrent UTIs Status: Chronic (5) Hypokalemia Assessment & Plan: * Monitor and replete Status: Acute (6) History of Sacral ulcer Assessment & Plan: * Healed * Cont with offloading/cushioning/turning * Continue frequent turning, protective ointment and skin checks. Status: Resolved (7) History of coronary artery disease Assessment & Plan: * s/p cardiac stents on 06/13/15 * Cont ASA 81mg via PEG daily * Cont Coreg 3.125mg PEG BID * Cont Plavix 75 mg PEG daily * Rosuvastatin 2.5mg PO HS Status: Acute (8) History of Seizures Assessment & Plan: * Continue Keppra 500mg PEG BID for seizure prophylaxis * Monitor for activity Status: Chronic (9) Lower extremity edema Assessment & Plan: * Improved * SCDs in place * Pressure ulcer boots on b/l * Continue to monitor Status: Chronic (10) Prophylactic measure Assessment & Plan: * Pepcid 20 mg PEG BID * Lovenox 40mg SC daily * SCDs and offloading boots * Saccharomyces 250mg PEG QD * continue to turn and reposition q2hrs * Continue to monitor medication administrations and clinical presentation weekly labs. 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 Per case management 10/08: unable to place patient. No changes at this time.
[2018-01-27] MEDS: Saccharomyces Boulardi 250 mg Cap PEG SCH (09:39)
[2018-01-27] MEDS: Enoxaparin 40 mg Syringe SC SCH (09:40)
[2018-01-27] MEDS: levETIRAcetam 100 mg/ml (5ml) Oral Syringe PEG SCH ×2 (09:40→17:20)
[2018-01-27] MEDS: Rosuvastatin Calcium 2.5 mg Tab PEG SCH (21:19)
[2018-01-28] MEDS: Saccharomyces Boulardi 250 mg Cap PEG SCH (10:05)
[2018-01-28] MEDS: Enoxaparin 40 mg Syringe SC SCH (10:07)
[2018-01-28] MEDS: levETIRAcetam 100 mg/ml (5ml) Oral Syringe PEG SCH ×2 (10:07→17:47)
[2018-01-28] MEDS: Rosuvastatin Calcium 2.5 mg Tab PEG SCH (21:25)
[2018-01-29] MEDS: Enoxaparin 40 mg Syringe SC SCH (09:26)
[2018-01-29] MEDS: levETIRAcetam 100 mg/ml (5ml) Oral Syringe PEG SCH ×2 (09:27→18:35)
--- NOTE | 2018-01-29 10:48 | CP.PCM.PN ---
Subjective - Date & Time of Evaluation Date of Evaluation: 01/29/18 Time of Evaluation: 10:47 - Subjective Subjective: Patient seen and examined at bedside. No acute events overnight. Unable to obtain ROS due to anoxic brain injury. Objective - Vital Signs/Intake and Output Vital Signs (last 24 hours): Temp Pulse Resp BP Pulse Ox 98.3 F 64 20 116/64 99 01/29/18 07:46 01/29/18 07:46 01/29/18 07:46 01/29/18 07:46 01/29/18 07:46 Intake and Output: 01/29/18 01/29/18 06:59 18:59 Intake Total 1020 Output Total 700 Balance 320 - Medications Medications: Current Medications Enoxaparin Sodium (Lovenox) 40 mg SC DAILY [facility] Last Admin: 01/29/18 09:26 Dose: 40 mg Levetiracetam (Keppra) 500 mg PEG BID [facility] Last Admin: 01/29/18 09:27 Dose: 500 mg Mupirocin (Bactroban Ointment) 0 gm TOP DAILY [facility] Last Admin: 01/28/18 10:07 Dose: 1 applic Rosuvastatin Calcium (Crestor) 2.5 mg PEG HS [facility] Last Admin: 01/28/18 21:25 Dose: 2.5 mg Scopolamine (Transderm-Scop) 1 patch TD Q3D [facility] Last Admin: 01/28/18 10:09 Dose: 1 patch - Labs Labs: 01/25/18 07:40 01/25/18 07:40 PT 10.6 SECONDS (9.7-12.2) 11/24/15 14:10 INR 1.0 11/24/15 14:10 APTT 25 SECONDS (21-34) 11/24/15 14:10 - Additional Findings Additional findings: - Head Exam Head Exam: ATRAUMATIC, NORMAL INSPECTION - Eye Exam Eye Exam: absent: EOMI, Normal appearance - ENT Exam ENT Exam: Mucous Membranes Moist - Neck Exam Additional comments: Tracheostomy in place - Respiratory Exam Respiratory Exam:Rhonchi. absent: Clear to Ausculation Bilateral (excessive mucous production), Respiratory Distress - Cardiovascular Exam Cardiovascular Exam: REGULAR RHYTHM, +S1, +S2 - GI/Abdominal Exam GI & Abdominal Exam: Distended, Soft, Hypoactive Bowel Sounds. absent: Firm, Mass Additional comments: PEG in place without erythema or swelling of surrounding skin - Extremities Exam Extremities Exam: absent: Pedal Edema - Neurological Exam Neurological Exam: Altered. absent: Alert, Awake, Oriented x3 - Psychiatric Exam Psychiatric exam: Altered (Patient is non-verbal from anoxic brain injury sustained on 05/2015). absent: Normal Affect, Normal Mood - Skin Skin Exam: Dry, Intact, Warm. Assessment and Plan - Assessment and Plan (Free Text) Plan: (1) Anoxic encephalopathy Assessment & Plan: * s/p cardiac arrest in 05/2015 * no acute changes in mental status. * Pt has non spontaneous movements. * patient is currently on 40cc/hr on tube feedings * via PEG * Aspirin 81mg daily * Plavix 75 mg daily * Keppra 500mg bid Status: Chronic (2) Acute Respiratory failure Assessment & Plan: * Trach in place, continue daily monitoring for secretions. No change in management at this time. * Continue with aggressive suctioning multiple times a day per respiratory therapist if secretions are thickened * Scopolamine 1 patch TD Q3D JOO * Duoneb 3ml INH RQ6 * Acetylcysteine 4ml INH RQ6 * Most recent chest xray: * 09/28/17: no active disease. No significant interval change compared to. Status: Chronic (3) History of Recurrent UTIs Assessment & Plan: * ID consult: Dr. Armstrong --> help appreciated * Patient is afebrile, no apparent leukocytosis * Patient is off IV abx since 08/05/17 * patient has condom catheter and Bladder scan PRN to prevent urinary retention Status: Acute (4) History of Urinary retention Assessment & Plan: * Bethanecol 50mg PEG TID * Tamsulosin 0.4mg PEG QD * Bladder scan up to 3x a week to monitor residual urine * patient has had history of recurrent UTIs Status: Chronic (5) Hypokalemia Assessment & Plan: * Monitor and replete Status: Acute (6) History of Sacral ulcer Assessment & Plan: * Healed * Cont with offloading/cushioning/turning * Continue frequent turning, protective ointment and skin checks. Status: Resolved (7) History of coronary artery disease Assessment & Plan: * s/p cardiac stents on 06/13/15 * Cont ASA 81mg via PEG daily * Cont Coreg 3.125mg PEG BID * Cont Plavix 75 mg PEG daily * Rosuvastatin 2.5mg PO HS Status: Acute (8) History of Seizures Assessment & Plan: * Continue Keppra 500mg PEG BID for seizure prophylaxis * Monitor for activity Status: Chronic (9) Lower extremity edema Assessment & Plan: * Improved * SCDs in place * Pressure ulcer boots on b/l * Continue to monitor Status: Chronic (10) Prophylactic measure Assessment & Plan: * Pepcid 20 mg PEG BID * Lovenox 40mg SC daily * SCDs and offloading boots * Saccharomyces 250mg PEG QD * continue to turn and reposition q2hrs * Continue to monitor medication administrations and clinical presentation weekly labs. 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 Per case management 10/08: unable to place patient. No changes at this time.
[2018-01-29] MEDS: Rosuvastatin Calcium 2.5 mg Tab PEG SCH (22:02)
[2018-01-30] MEDS: levETIRAcetam 100 mg/ml (5ml) Oral Syringe PEG SCH ×2 (10:04→18:41)
[2018-01-30] MEDS: Enoxaparin 40 mg Syringe SC SCH (10:04)
[2018-01-30] MEDS: Rosuvastatin Calcium 2.5 mg Tab PEG SCH (21:00)
[2018-01-31] MEDS: levETIRAcetam 100 mg/ml (5ml) Oral Syringe PEG SCH ×2 (09:19→18:18)
[2018-01-31] MEDS: Enoxaparin 40 mg Syringe SC SCH (09:22)
[2018-01-31] MEDS: Rosuvastatin Calcium 2.5 mg Tab PEG SCH (21:45)
[2018-02-01 07:50] LABS: ALB/GLOB RATIO 0.9 (1.0-2.1); ALBUMIN 3.5 g/dL (3.5-5.0); ALT/SGPT 30 U/L (21-72); AST/SGOT 25 U/L (17-59); BLOOD UREA NITROGEN 14 mg/dL (9-20); CALCIUM 8.6 mg/dl (8.6-10.4); GFR NON-AFRICAN AMERICAN > 60
--- NOTE | 2018-02-01 08:14 | CP.PCM.PN ---
<Francis Johnson - Last Filed: 02/01/18 11:32> Subjective - Date & Time of Evaluation Date of Evaluation: 02/01/18 Time of Evaluation: 07:40 - Subjective Subjective: Medicine progress note for Dr. Moore Patient seen and examined. Patient in no acute distress. Cannot obtain ROS due to anoxic brain injury. Objective - Vital Signs/Intake and Output Vital Signs (last 24 hours): Temp Pulse Resp BP Pulse Ox 98.7 F 86 20 116/82 99 02/01/18 07:46 02/01/18 07:46 02/01/18 07:46 02/01/18 07:46 02/01/18 07:46 Intake and Output: 02/01/18 02/01/18 06:59 18:59 Intake Total 1720 Output Total 750 Balance 970 - Medications Medications: Current Medications Aspirin (Aspirin Chewable) 81 mg PEG DAILY [facility] Last Admin: 01/31/18 09:17 Dose: 81 mg Carvedilol (Coreg) 3.125 mg PO BID [facility] Last Admin: 01/31/18 18:18 Dose: 3.125 mg Enoxaparin Sodium (Lovenox) 40 mg SC DAILY [facility] Last Admin: 01/31/18 09:22 Dose: 40 mg Finasteride (Proscar) 5 mg PO DAILY [facility] Levetiracetam (Keppra) 500 mg PEG BID [facility] Last Admin: 01/31/18 18:18 Dose: 500 mg Mupirocin (Bactroban Ointment) 0 gm TOP DAILY [facility] Last Admin: 01/31/18 09:17 Dose: 1 applic Rosuvastatin Calcium (Crestor) 2.5 mg PEG HS [facility] Last Admin: 01/31/18 21:45 Dose: 2.5 mg Scopolamine (Transderm-Scop) 1 patch TD Q3D [facility] Last Admin: 01/31/18 09:23 Dose: 1 patch Tamsulosin HCl (Flomax) 0.4 mg PEG DAILY [facility] Last Admin: 01/31/18 09:22 Dose: 0.4 mg - Labs Labs: 01/25/18 07:40 02/01/18 07:28 PT 10.6 SECONDS (9.7-12.2) 11/24/15 14:10 INR 1.0 11/24/15 14:10 APTT 25 SECONDS (21-34) 11/24/15 14:10 - Additional Findings Additional findings: - Head Exam Head Exam: ATRAUMATIC, NORMAL INSPECTION - Eye Exam Eye Exam: absent: EOMI, Normal appearance - ENT Exam ENT Exam: Mucous Membranes Moist - Neck Exam Additional comments: Tracheostomy in place - Respiratory Exam Respiratory Exam:Rhonchi. absent: Clear to Ausculation Bilateral (excessive mucous production), Respiratory Distress - Cardiovascular Exam Cardiovascular Exam: REGULAR RHYTHM, +S1, +S2 - GI/Abdominal Exam GI & Abdominal Exam: Distended, Soft, Hypoactive Bowel Sounds. absent: Firm, Mass Additional comments: PEG in place without erythema or swelling of surrounding skin - Extremities Exam Extremities Exam: absent: Pedal Edema - Neurological Exam Neurological Exam: Altered. absent: Alert, Awake, Oriented x3 - Psychiatric Exam Psychiatric exam: Altered (Patient is non-verbal from anoxic brain injury sustained on 05/2015). absent: Normal Affect, Normal Mood - Skin Skin Exam: Dry, Intact, Warm. Assessment and Plan - Assessment and Plan (Free Text) Plan: (1) Anoxic encephalopathy Assessment & Plan: * s/p cardiac arrest in 05/2015 * no acute changes in mental status. * Pt has non spontaneous movements. * patient is currently on 40cc/hr on tube feedings * via PEG * Aspirin 81mg daily * Plavix 75 mg daily * Keppra 500mg bid Status: Chronic (2) Acute Respiratory failure Assessment & Plan: * Trach in place, continue daily monitoring for secretions. No change in management at this time. * Continue with aggressive suctioning multiple times a day per respiratory therapist if secretions are thickened * Scopolamine 1 patch TD Q3D JOO * Duoneb 3ml INH RQ6 * Acetylcysteine 4ml INH RQ6 * Most recent chest xray: * 09/28/17: no active disease. No significant interval change compared to. Status: Chronic (3) History of Recurrent UTIs Assessment & Plan: * ID consult: Dr. Armstrong --> help appreciated * Patient is afebrile, no apparent leukocytosis * Patient is off IV abx since 08/05/17 * patient has condom catheter and Bladder scan PRN to prevent urinary retention Status: Acute (4) History of Urinary retention Assessment & Plan: * Bethanecol 50mg PEG TID * Tamsulosin 0.4mg PEG QD * Bladder scan up to 3x a week to monitor residual urine * patient has had history of recurrent UTIs Status: Chronic (5) Hypokalemia Assessment & Plan: * Monitor and replete Status: Acute (6) History of Sacral ulcer Assessment & Plan: * Healed * Cont with offloading/cushioning/turning * Continue frequent turning, protective ointment and skin checks. Status: Resolved (7) History of coronary artery disease Assessment & Plan: * s/p cardiac stents on 06/13/15 * Cont ASA 81mg via PEG daily * Cont Coreg 3.125mg PEG BID * Rosuvastatin 2.5mg PO HS Status: Acute (8) History of Seizures Assessment & Plan: * Continue Keppra 500mg PEG BID for seizure prophylaxis * Monitor for activity Status: Chronic (9) Lower extremity edema Assessment & Plan: * Improved * SCDs in place * Pressure ulcer boots on b/l * Continue to monitor Status: Chronic (10) Prophylactic measure Assessment & Plan: * Pepcid 20 mg PEG daily * Lovenox 40mg SC daily * SCDs and offloading boots * continue to turn and reposition q2hrs * Continue to monitor medication administrations and clinical presentation weekly labs. 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 Per case management 10/08: unable to place patient. No changes at this time. Discussed with Dr. Teresa Johnson PGY-1 <Jeison Moore - Last Filed: 02/03/18 15:24> Objective - Vital Signs/Intake and Output Vital Signs (last 24 hours): Temp Pulse Resp BP Pulse Ox 98.6 F 80 20 114/74 99 02/03/18 08:29 02/03/18 08:29 02/03/18 08:29 02/03/18 08:29 02/03/18 08:29 Intake and Output: 02/03/18 02/03/18 06:59 18:59 Intake Total 1470 Output Total 750 400 Balance 720 -400 - Medications Medications: Current Medications Aspirin (Aspirin Chewable) 81 mg PEG DAILY [facility] Last Admin: 02/03/18 11:08 Dose: 81 mg Carvedilol (Coreg) 3.125 mg PO BID [facility] Last Admin: 02/03/18 11:09 Dose: 3.125 mg Enoxaparin Sodium (Lovenox) 40 mg SC DAILY [facility] Last Admin: 02/03/18 11:10 Dose: 40 mg Famotidine (Pepcid) 20 mg PEG DAILY [facility] Last Admin: 02/03/18 11:12 Dose: 20 mg Finasteride (Proscar) 5 mg PO DAILY [facility] Last Admin: 02/03/18 11:09 Dose: 5 mg Levetiracetam (Keppra) 500 mg PEG BID [facility] Last Admin: 02/03/18 11:08 Dose: 500 mg Mupirocin (Bactroban Ointment) 0 gm TOP DAILY [facility] Last Admin: 02/03/18 11:10 Dose: 1 applic Rosuvastatin Calcium (Crestor) 2.5 mg PEG HS [facility] Last Admin: 02/02/18 21:40 Dose: 2.5 mg Scopolamine (Transderm-Scop) 1 patch TD Q3D [facility] Last Admin: 02/03/18 11:09 Dose: 1 patch Tamsulosin HCl (Flomax) 0.4 mg PEG DAILY [facility] Last Admin: 02/03/18 11:08 Dose: 0.4 mg - Labs Labs: 02/01/18 11:29 02/01/18 07:28 PT 10.6 SECONDS (9.7-12.2) 11/24/15 14:10 INR 1.0 11/24/15 14:10 APTT 25 SECONDS (21-34) 11/24/15 14:10 Attending/Attestation - Attestation I have personally seen and examined this patient.: No I have fully participated in the care of the patient.: Yes I have reviewed all pertinent clinical information, including history, physical exam and plan: Yes
[2018-02-01] MEDS: levETIRAcetam 100 mg/ml (5ml) Oral Syringe PEG SCH ×2 (09:57→17:31)
[2018-02-01] MEDS: Enoxaparin 40 mg Syringe SC SCH (09:58)
[2018-02-01 11:40] LABS: BASO % 0.4 % (0.0-2.0); EOS # 0.4 K/uL (0.0-0.7); EOS % 4.7 % (0.0-4.0); HEMOGLOBIN 11.6 g/dL (12.0-18.0); LYMPH # 2.7 K/uL (1.0-4.3); LYMPH % 28.1 % (20.0-40.0); MEAN CELL VOLUME 87.6 fL (80.0-94.0); MEAN CORPUSCULAR HGB CONC 33.1 g/dL (33.0-37.0); MEAN PLATELET VOLUME 9.5 fL (7.2-11.7); NEUT # 5.4 K/uL (1.8-7.0); NEUT % 56.8 % (50.0-75.0); NRBC % 0.1 % (0.0-2.0); RED CELL DISTRIBUTION WIDTH 15.1 % (11.5-14.5); WHITE BLOOD COUNT 9.5 K/uL (4.8-10.8)
[2018-02-01] MEDS: Rosuvastatin Calcium 2.5 mg Tab PEG SCH (22:07)
[2018-02-02] MEDS: levETIRAcetam 100 mg/ml (5ml) Oral Syringe PEG SCH ×2 (11:41→17:53)
[2018-02-02] MEDS: Enoxaparin 40 mg Syringe SC SCH (11:41)
[2018-02-02] MEDS: Rosuvastatin Calcium 2.5 mg Tab PEG SCH (21:40)
--- NOTE | 2018-02-03 06:50 | CP.PCM.PN ---
<Francis Johnson - Last Filed: 02/03/18 11:30> Subjective - Date & Time of Evaluation Date of Evaluation: 02/03/18 Time of Evaluation: 07:00 - Subjective Subjective: Medicine progress note for Dr. Moore Patient seen and examined. ROS unobtainable due to anoxic brain injury. Objective - Vital Signs/Intake and Output Vital Signs (last 24 hours): Temp Pulse Resp BP Pulse Ox 98 F 62 20 112/74 99 02/03/18 00:00 02/03/18 00:00 02/03/18 00:00 02/03/18 00:00 02/03/18 00:00 Intake and Output: 02/02/18 02/03/18 18:59 06:59 Intake Total 520 1470 Output Total 580 750 Balance -60 720 - Medications Medications: Current Medications Aspirin (Aspirin Chewable) 81 mg PEG DAILY [facility] Last Admin: 02/02/18 11:40 Dose: 81 mg Carvedilol (Coreg) 3.125 mg PO BID [facility] Last Admin: 02/02/18 17:53 Dose: 3.125 mg Enoxaparin Sodium (Lovenox) 40 mg SC DAILY [facility] Last Admin: 02/02/18 11:41 Dose: 40 mg Famotidine (Pepcid) 20 mg PEG DAILY [facility] Last Admin: 02/02/18 11:41 Dose: 20 mg Finasteride (Proscar) 5 mg PO DAILY [facility] Last Admin: 02/02/18 11:41 Dose: 5 mg Levetiracetam (Keppra) 500 mg PEG BID [facility] Last Admin: 02/02/18 17:53 Dose: 500 mg Mupirocin (Bactroban Ointment) 0 gm TOP DAILY [facility] Last Admin: 02/02/18 11:42 Dose: 1 applic Rosuvastatin Calcium (Crestor) 2.5 mg PEG HS [facility] Last Admin: 02/02/18 21:40 Dose: 2.5 mg Scopolamine (Transderm-Scop) 1 patch TD Q3D [facility] Last Admin: 01/31/18 09:23 Dose: 1 patch Tamsulosin HCl (Flomax) 0.4 mg PEG DAILY [facility] Last Admin: 02/02/18 11:40 Dose: 0.4 mg - Labs Labs: 02/01/18 11:29 02/01/18 07:28 PT 10.6 SECONDS (9.7-12.2) 11/24/15 14:10 INR 1.0 11/24/15 14:10 APTT 25 SECONDS (21-34) 11/24/15 14:10 - Additional Findings Additional findings: - Head Exam Head Exam: ATRAUMATIC, NORMAL INSPECTION - Eye Exam Eye Exam: absent: EOMI, Normal appearance - ENT Exam ENT Exam: Mucous Membranes Moist - Neck Exam Additional comments: Tracheostomy in place - Respiratory Exam Respiratory Exam:Rhonchi. absent: Clear to Ausculation Bilateral (excessive mucous production), Respiratory Distress - Cardiovascular Exam Cardiovascular Exam: REGULAR RHYTHM, +S1, +S2 - GI/Abdominal Exam GI & Abdominal Exam: Distended, Soft, Hypoactive Bowel Sounds. absent: Firm, Mass Additional comments: PEG in place without erythema or swelling of surrounding skin - Extremities Exam Extremities Exam: absent: Pedal Edema - Neurological Exam Neurological Exam: Altered. absent: Alert, Awake, Oriented x3 - Psychiatric Exam Psychiatric exam: Altered (Patient is non-verbal from anoxic brain injury sustained on 05/2015). absent: Normal Affect, Normal Mood - Skin Skin Exam: Dry, Intact, Warm. Assessment and Plan - Assessment and Plan (Free Text) Plan: (1) Anoxic encephalopathy Assessment & Plan: * s/p cardiac arrest in 05/2015 * no acute changes in mental status. * Pt has non spontaneous movements. * patient is currently on 40cc/hr on tube feedings * via PEG * Aspirin 81mg daily * Keppra 500mg bid Status: Chronic (2) Acute Respiratory failure Assessment & Plan: * Trach in place, continue daily monitoring for secretions. No change in management at this time. * Continue with aggressive suctioning multiple times a day per respiratory therapist if secretions are thickened * Scopolamine 1 patch TD Q3D JOO * Duoneb 3ml INH RQ6 * Acetylcysteine 4ml INH RQ6 * Most recent chest xray: * 09/28/17: no active disease. No significant interval change compared to. Status: Chronic (3) History of Recurrent UTIs Assessment & Plan: * ID consult: Dr. Armstrong --> help appreciated * Patient is afebrile, no apparent leukocytosis * Patient is off IV abx since 08/05/17 * patient has condom catheter and Bladder scan PRN to prevent urinary retention Status: Acute (4) History of Urinary retention Assessment & Plan: * Bethanecol 50mg PEG TID * Tamsulosin 0.4mg PEG QD * Bladder scan up to 3x a week to monitor residual urine * patient has had history of recurrent UTIs Status: Chronic (5) Hypokalemia Assessment & Plan: * Monitor and replete Status: Acute (6) History of Sacral ulcer Assessment & Plan: * Healed * Cont with offloading/cushioning/turning * Continue frequent turning, protective ointment and skin checks. Status: Resolved (7) History of coronary artery disease Assessment & Plan: * s/p cardiac stents on 06/13/15 * Cont ASA 81mg via PEG daily * Cont Coreg 3.125mg PEG BID * Rosuvastatin 2.5mg PO HS Status: Acute (8) History of Seizures Assessment & Plan: * Continue Keppra 500mg PEG BID for seizure prophylaxis * Monitor for activity Status: Chronic (9) Lower extremity edema Assessment & Plan: * Improved * SCDs in place * Pressure ulcer boots on b/l * Continue to monitor Status: Chronic (10) Prophylactic measure Assessment & Plan: * Pepcid 20 mg PEG daily * Lovenox 40mg SC daily * SCDs and offloading boots * continue to turn and reposition q2hrs * Continue to monitor medication administrations and clinical presentation weekly labs. 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 Per case management 10/08: unable to place patient. No changes at this time. Discussed with Dr. Teresa Johnson PGY-1 <Jeison Moore - Last Filed: 02/03/18 15:26> Objective - Vital Signs/Intake and Output Vital Signs (last 24 hours): Temp Pulse Resp BP Pulse Ox 98.6 F 80 20 114/74 99 02/03/18 08:29 02/03/18 08:29 02/03/18 08:29 02/03/18 08:29 02/03/18 08:29 Intake and Output: 02/03/18 02/03/18 06:59 18:59 Intake Total 1470 Output Total 750 400 Balance 720 -400 - Medications Medications: Current Medications Aspirin (Aspirin Chewable) 81 mg PEG DAILY [facility] Last Admin: 02/03/18 11:08 Dose: 81 mg Carvedilol (Coreg) 3.125 mg PO BID [facility] Last Admin: 02/03/18 11:09 Dose: 3.125 mg Enoxaparin Sodium (Lovenox) 40 mg SC DAILY [facility] Last Admin: 02/03/18 11:10 Dose: 40 mg Famotidine (Pepcid) 20 mg PEG DAILY [facility] Last Admin: 02/03/18 11:12 Dose: 20 mg Finasteride (Proscar) 5 mg PO DAILY [facility] Last Admin: 02/03/18 11:09 Dose: 5 mg Levetiracetam (Keppra) 500 mg PEG BID [facility] Last Admin: 02/03/18 11:08 Dose: 500 mg Mupirocin (Bactroban Ointment) 0 gm TOP DAILY [facility] Last Admin: 02/03/18 11:10 Dose: 1 applic Rosuvastatin Calcium (Crestor) 2.5 mg PEG HS [facility] Last Admin: 02/02/18 21:40 Dose: 2.5 mg Scopolamine (Transderm-Scop) 1 patch TD Q3D [facility] Last Admin: 02/03/18 11:09 Dose: 1 patch Tamsulosin HCl (Flomax) 0.4 mg PEG DAILY [facility] Last Admin: 02/03/18 11:08 Dose: 0.4 mg - Labs Labs: 02/01/18 11:29 02/01/18 07:28 PT 10.6 SECONDS (9.7-12.2) 11/24/15 14:10 INR 1.0 11/24/15 14:10 APTT 25 SECONDS (21-34) 11/24/15 14:10 Attending/Attestation - Attestation I have personally seen and examined this patient.: Yes I have fully participated in the care of the patient.: Yes I have reviewed all pertinent clinical information, including history, physical exam and plan: Yes Notes (Text): Seen and examined No changes noted resting comfortable and getting feeding. I agree with the resident's documentation of the assessment and the plan 02/03/18 15:25
[2018-02-03] MEDS: levETIRAcetam 100 mg/ml (5ml) Oral Syringe PEG SCH ×2 (11:08→17:02)
[2018-02-03] MEDS: Enoxaparin 40 mg Syringe SC SCH (11:10)
[2018-02-04] MEDS: Enoxaparin 40 mg Syringe SC SCH (11:05)
[2018-02-04] MEDS: levETIRAcetam 100 mg/ml (5ml) Oral Syringe PEG SCH ×2 (11:05→17:00)
--- NOTE | 2018-02-05 06:51 | CP.PCM.PN ---
<IsisPancho ashtonenio Cannon - Last Filed: 02/05/18 13:18> Subjective - Date & Time of Evaluation Date of Evaluation: 02/05/18 Time of Evaluation: 07:00 - Subjective Subjective: Medicine progress note for Dr. Moore Patient seen and examined. ROS unobtainable due to anoxic brain injury. No acute events. Objective - Vital Signs/Intake and Output Vital Signs (last 24 hours): Temp Pulse Resp BP Pulse Ox 98.1 F 70 20 105/68 99 02/05/18 00:00 02/05/18 00:00 02/05/18 00:00 02/05/18 00:00 02/05/18 00:00 Intake and Output: 02/04/18 02/05/18 18:59 06:59 Intake Total 560 Output Total 350 500 Balance -350 60 - Medications Medications: Current Medications Aspirin (Aspirin Chewable) 81 mg PEG DAILY [facility] Last Admin: 02/04/18 11:05 Dose: 81 mg Carvedilol (Coreg) 3.125 mg PO BID [facility] Last Admin: 02/04/18 11:06 Dose: 3.125 mg Enoxaparin Sodium (Lovenox) 40 mg SC DAILY [facility] Last Admin: 02/04/18 11:05 Dose: 40 mg Famotidine (Pepcid) 20 mg PEG DAILY [facility] Last Admin: 02/04/18 11:05 Dose: 20 mg Finasteride (Proscar) 5 mg PO DAILY [facility] Last Admin: 02/04/18 11:06 Dose: 5 mg Levetiracetam (Keppra) 500 mg PEG BID [facility] Last Admin: 02/04/18 11:05 Dose: 500 mg Mupirocin (Bactroban Ointment) 0 gm TOP DAILY [facility] Last Admin: 02/04/18 11:04 Dose: 1 applic Rosuvastatin Calcium (Crestor) 2.5 mg PEG HS [facility] Last Admin: 02/02/18 21:40 Dose: 2.5 mg Scopolamine (Transderm-Scop) 1 patch TD Q3D [facility] Last Admin: 02/03/18 11:09 Dose: 1 patch Tamsulosin HCl (Flomax) 0.4 mg PEG DAILY [facility] Last Admin: 02/04/18 11:05 Dose: 0.4 mg - Labs Labs: 02/01/18 11:29 02/01/18 07:28 PT 10.6 SECONDS (9.7-12.2) 11/24/15 14:10 INR 1.0 11/24/15 14:10 APTT 25 SECONDS (21-34) 11/24/15 14:10 - Additional Findings Additional findings: - Head Exam Head Exam: ATRAUMATIC, NORMAL INSPECTION - Eye Exam Eye Exam: absent: EOMI, Normal appearance - ENT Exam ENT Exam: Mucous Membranes Moist - Neck Exam Additional comments: Tracheostomy in place - Respiratory Exam Respiratory Exam:Rhonchi. absent: Clear to Ausculation Bilateral (excessive mucous production), Respiratory Distress - Cardiovascular Exam Cardiovascular Exam: REGULAR RHYTHM, +S1, +S2 - GI/Abdominal Exam GI & Abdominal Exam: Distended, Soft, Hypoactive Bowel Sounds. absent: Firm, Mass Additional comments: PEG in place without erythema or swelling of surrounding skin - Extremities Exam Extremities Exam: absent: Pedal Edema - Neurological Exam Neurological Exam: Altered. absent: Alert, Awake, Oriented x3 - Psychiatric Exam Psychiatric exam: Altered (Patient is non-verbal from anoxic brain injury sustained on 05/2015). absent: Normal Affect, Normal Mood - Skin Skin Exam: Dry, Intact, Warm. Assessment and Plan - Assessment and Plan (Free Text) Plan: (1) Anoxic encephalopathy Assessment & Plan: * s/p cardiac arrest in 05/2015 * no acute changes in mental status. * Pt has non spontaneous movements. * patient is currently on 40cc/hr on tube feedings * via PEG * Aspirin 81mg daily * Keppra 500mg bid Status: Chronic (2) Acute Respiratory failure Assessment & Plan: * Trach in place, continue daily monitoring for secretions. No change in management at this time. * Continue with aggressive suctioning multiple times a day per respiratory therapist if secretions are thickened * Scopolamine 1 patch TD Q3D JOO * Duoneb 3ml INH RQ6 * Acetylcysteine 4ml INH RQ6 * Most recent chest xray: * 09/28/17: no active disease. No significant interval change compared to. Status: Chronic (3) History of Recurrent UTIs Assessment & Plan: * ID consult: Dr. Armstrong --> help appreciated * Patient is afebrile, no apparent leukocytosis * Patient is off IV abx since 08/05/17 * patient has condom catheter and Bladder scan PRN to prevent urinary retention Status: Acute (4) History of Urinary retention Assessment & Plan: * Bethanecol 50mg PEG TID * Tamsulosin 0.4mg PEG QD * Bladder scan up to 3x a week to monitor residual urine * patient has had history of recurrent UTIs Status: Chronic (5) Hypokalemia Assessment & Plan: * Monitor and replete Status: Acute (6) History of Sacral ulcer Assessment & Plan: * Healed * Cont with offloading/cushioning/turning * Continue frequent turning, protective ointment and skin checks. Status: Resolved (7) History of coronary artery disease Assessment & Plan: * s/p cardiac stents on 06/13/15 * Cont ASA 81mg via PEG daily * Cont Coreg 3.125mg PEG BID * Rosuvastatin 2.5mg PO HS Status: Acute (8) History of Seizures Assessment & Plan: * Continue Keppra 500mg PEG BID for seizure prophylaxis * Monitor for activity Status: Chronic (9) Lower extremity edema Assessment & Plan: * Improved * SCDs in place * Pressure ulcer boots on b/l * Continue to monitor Status: Chronic (10) Prophylactic measure Assessment & Plan: * Pepcid 20 mg PEG daily * Lovenox 40mg SC daily * SCDs and offloading boots * continue to turn and reposition q2hrs * Continue to monitor medication administrations and clinical presentation weekly labs. 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 Per case management 10/08: unable to place patient. No changes at this time. Discussed with Dr. Teresa Johnson PGY-1 <Jeison Moore - Last Filed: 02/05/18 17:37> Objective - Vital Signs/Intake and Output Vital Signs (last 24 hours): Temp Pulse Resp BP Pulse Ox 98.3 F 68 20 105/69 96 02/05/18 15:00 02/05/18 15:00 02/05/18 15:00 02/05/18 15:00 02/05/18 15:00 Intake and Output: 02/05/18 02/05/18 06:59 18:59 Intake Total 560 1720 Output Total 500 800 Balance 60 920 - Medications Medications: Current Medications Aspirin (Aspirin Chewable) 81 mg PEG DAILY [facility] Last Admin: 02/05/18 10:27 Dose: 81 mg Carvedilol (Coreg) 3.125 mg PO BID [facility] Last Admin: 02/05/18 17:21 Dose: 3.125 mg Enoxaparin Sodium (Lovenox) 40 mg SC DAILY [facility] Last Admin: 02/05/18 10:28 Dose: 40 mg Famotidine (Pepcid) 20 mg PEG DAILY [facility] Last Admin: 02/05/18 10:27 Dose: 20 mg Finasteride (Proscar) 5 mg PO DAILY [facility] Last Admin: 02/05/18 10:30 Dose: 5 mg Levetiracetam (Keppra) 500 mg PEG BID [facility] Last Admin: 02/05/18 17:22 Dose: 500 mg Mupirocin (Bactroban Ointment) 0 gm TOP DAILY [facility] Last Admin: 02/05/18 10:30 Dose: 1 applic Rosuvastatin Calcium (Crestor) 2.5 mg PEG HS [facility] Last Admin: 02/02/18 21:40 Dose: 2.5 mg Scopolamine (Transderm-Scop) 1 patch TD Q3D [facility] Last Admin: 02/03/18 11:09 Dose: 1 patch Tamsulosin HCl (Flomax) 0.4 mg PEG DAILY [facility] Last Admin: 02/05/18 10:27 Dose: 0.4 mg - Labs Labs: 02/01/18 11:29 02/01/18 07:28 PT 10.6 SECONDS (9.7-12.2) 11/24/15 14:10 INR 1.0 11/24/15 14:10 APTT 25 SECONDS (21-34) 11/24/15 14:10 Attending/Attestation - Attestation I have personally seen and examined this patient.: No I have fully participated in the care of the patient.: Yes I have reviewed all pertinent clinical information, including history, physical exam and plan: Yes
[2018-02-05] MEDS: Enoxaparin 40 mg Syringe SC SCH (10:28)
[2018-02-05] MEDS: levETIRAcetam 100 mg/ml (5ml) Oral Syringe PEG SCH ×2 (10:28→17:22)
[2018-02-05] MEDS: Rosuvastatin Calcium 2.5 mg Tab PEG SCH (21:43)
[2018-02-06] MEDS: Enoxaparin 40 mg Syringe SC SCH (11:12)
[2018-02-06] MEDS: levETIRAcetam 100 mg/ml (5ml) Oral Syringe PEG SCH ×2 (11:13→18:33)
[2018-02-06] MEDS: Rosuvastatin Calcium 2.5 mg Tab PEG SCH (21:57)
[2018-02-07] MEDS: Enoxaparin 40 mg Syringe SC SCH (11:34)
[2018-02-07] MEDS: levETIRAcetam 100 mg/ml (5ml) Oral Syringe PEG SCH ×2 (11:35→17:21)
--- NOTE | 2018-02-08 07:13 | CP.PCM.PN ---
Subjective - Date & Time of Evaluation Date of Evaluation: 02/08/18 Time of Evaluation: 07:00 - Subjective Subjective: Medicine progress note for Dr. Chavis Patient seen and examined. Unable to obtain ROS due to anoxic brain injury. No acute events noted. Objective - Vital Signs/Intake and Output Vital Signs (last 24 hours): Temp Pulse Resp BP Pulse Ox 98.5 F 84 20 100/69 100 02/08/18 00:00 02/08/18 00:00 02/08/18 00:00 02/08/18 00:00 02/08/18 00:00 Intake and Output: 02/08/18 02/08/18 06:59 18:59 Intake Total 810 Output Total 300 Balance 510 - Medications Medications: Current Medications Aspirin (Aspirin Chewable) 81 mg PEG DAILY [facility] Last Admin: 02/07/18 11:34 Dose: 81 mg Carvedilol (Coreg) 3.125 mg PO BID [facility] Last Admin: 02/07/18 17:21 Dose: 3.125 mg Enoxaparin Sodium (Lovenox) 40 mg SC DAILY [facility] Last Admin: 02/07/18 11:34 Dose: 40 mg Famotidine (Pepcid) 20 mg PEG DAILY [facility] Last Admin: 02/07/18 11:34 Dose: 20 mg Finasteride (Proscar) 5 mg PO DAILY [facility] Last Admin: 02/07/18 11:35 Dose: 5 mg Levetiracetam (Keppra) 500 mg PEG BID [facility] Last Admin: 02/07/18 17:21 Dose: 500 mg Mupirocin (Bactroban Ointment) 0 gm TOP DAILY [facility] Last Admin: 02/07/18 11:35 Dose: 1 applic Rosuvastatin Calcium (Crestor) 2.5 mg PEG HS [facility] Last Admin: 02/06/18 21:57 Dose: 2.5 mg Scopolamine (Transderm-Scop) 1 patch TD Q3D [facility] Last Admin: 02/06/18 11:12 Dose: 1 patch Tamsulosin HCl (Flomax) 0.4 mg PEG DAILY [facility] Last Admin: 02/07/18 11:35 Dose: 0.4 mg - Labs Labs: 02/01/18 11:29 02/01/18 07:28 PT 10.6 SECONDS (9.7-12.2) 01/02/16 14:10 INR 1.0 11/24/15 14:10 APTT 25 SECONDS (21-34) 11/24/15 14:10 - Additional Findings Additional findings: - Head Exam Head Exam: ATRAUMATIC, NORMAL INSPECTION - Eye Exam Eye Exam: absent: EOMI, Normal appearance - ENT Exam ENT Exam: Mucous Membranes Moist - Neck Exam Additional comments: Tracheostomy in place - Respiratory Exam Respiratory Exam:Rhonchi. absent: Clear to Auscultation Bilateral (excessive mucous production), Respiratory Distress - Cardiovascular Exam Cardiovascular Exam: REGULAR RHYTHM, +S1, +S2 - GI/Abdominal Exam GI & Abdominal Exam: Distended, Soft, Hypoactive Bowel Sounds. absent: Firm, Mass Additional comments: PEG in place without erythema or swelling of surrounding skin - Extremities Exam Extremities Exam: absent: Pedal Edema - Neurological Exam Neurological Exam: Altered. absent: Alert, Awake, Oriented x3 - Psychiatric Exam Psychiatric exam: Altered (Patient is non-verbal from anoxic brain injury sustained on 05/2015). absent: Normal Affect, Normal Mood - Skin Skin Exam: Dry, Intact, Warm. Assessment and Plan - Assessment and Plan (Free Text) Plan: (1) Anoxic encephalopathy Assessment & Plan: * s/p cardiac arrest in 05/2015 * no acute changes in mental status. * Pt has non spontaneous movements. * patient is currently on 40cc/hr on tube feedings * via PEG * Aspirin 81mg daily * Keppra 500mg bid Status: Chronic (2) Acute Respiratory failure Assessment & Plan: * Trach in place, continue daily monitoring for secretions. No change in management at this time. * Continue with aggressive suctioning multiple times a day per respiratory therapist if secretions are thickened * Scopolamine 1 patch TD Q3D JOO * Duoneb 3ml INH RQ6 * Acetylcysteine 4ml INH RQ6 * Most recent chest xray: * 09/28/17: no active disease. No significant interval change compared to. Status: Chronic (3) History of Recurrent UTIs Assessment & Plan: * ID consult: Dr. Armstrong --> help appreciated * Patient is afebrile, no apparent leukocytosis * Patient is off IV abx since 08/05/17 * patient has condom catheter and Bladder scan PRN to prevent urinary retention Status: Acute (4) History of Urinary retention Assessment & Plan: * Bethanecol 50mg PEG TID * Tamsulosin 0.4mg PEG QD * Bladder scan up to 3x a week to monitor residual urine * patient has had history of recurrent UTIs Status: Chronic (5) Hypokalemia Assessment & Plan: * Monitor and replete Status: Acute (6) History of Sacral ulcer Assessment & Plan: * Healed * Cont with offloading/cushioning/turning * Continue frequent turning, protective ointment and skin checks. Status: Resolved (7) History of coronary artery disease Assessment & Plan: * s/p cardiac stents on 06/13/15 * Cont ASA 81mg via PEG daily * Cont Coreg 3.125mg PEG BID * Rosuvastatin 2.5mg PO HS Status: Acute (8) History of Seizures Assessment & Plan: * Continue Keppra 500mg PEG BID for seizure prophylaxis * Monitor for activity Status: Chronic (9) Lower extremity edema Assessment & Plan: * Improved * SCDs in place * Pressure ulcer boots on b/l * Continue to monitor Status: Chronic (10) Prophylactic measure Assessment & Plan: * Pepcid 20 mg PEG daily * Lovenox 40mg SC daily * SCDs and offloading boots * continue to turn and reposition q2hrs * Continue to monitor medication administrations and clinical presentation weekly labs. 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 Per case management 10/08: unable to place patient. No changes at this time. Discussed with Dr. Palmira Johnson PGY-1
[2018-02-08 08:54] LABS: BASO % 0.4 % (0.0-2.0); EOS # 0.3 K/uL (0.0-0.7); EOS % 3.5 % (0.0-4.0); HEMOGLOBIN 11.5 g/dL (12.0-18.0); LYMPH # 2.6 K/uL (1.0-4.3); LYMPH % 30.1 % (20.0-40.0); MEAN CELL VOLUME 86.8 fL (80.0-94.0); MEAN CORPUSCULAR HEMOGLOBIN 29.2 pg (27.0-31.0); MEAN CORPUSCULAR HGB CONC 33.7 g/dL (33.0-37.0); MEAN PLATELET VOLUME 9.1 fL (7.2-11.7); MONO # 0.8 K/uL (0.0-0.8); MONO % 9.3 % (0.0-10.0); NEUT # 4.9 K/uL (1.8-7.0); NEUT % 56.7 % (50.0-75.0); RBC 3.94 Mil/uL (4.40-5.90); RED CELL DISTRIBUTION WIDTH 15.3 % (11.5-14.5); WHITE BLOOD COUNT 8.6 K/uL (4.8-10.8)
[2018-02-08 09:10] LABS: ALB/GLOB RATIO 0.8 (1.0-2.1); ALBUMIN 3.4 g/dL (3.5-5.0); ALT/SGPT 42 U/L (21-72); AST/SGOT 18 U/L (17-59); BLOOD UREA NITROGEN 13 mg/dL (9-20); CALCIUM 8.4 mg/dl (8.6-10.4); GFR NON-AFRICAN AMERICAN > 60
[2018-02-08] MEDS: levETIRAcetam 100 mg/ml (5ml) Oral Syringe PEG SCH ×2 (09:50→17:34)
[2018-02-08] MEDS: Enoxaparin 40 mg Syringe SC SCH (09:50)
[2018-02-08] MEDS: Rosuvastatin Calcium 2.5 mg Tab PEG SCH (23:00)
[2018-02-09] MEDS: levETIRAcetam 100 mg/ml (5ml) Oral Syringe PEG SCH ×2 (09:29→18:25)
[2018-02-09] MEDS: Enoxaparin 60 mg Syringe SC SCH (10:25)
[2018-02-09] MEDS: Rosuvastatin Calcium 2.5 mg Tab PEG SCH (21:22)
--- NOTE | 2018-02-10 07:28 | CP.PCM.PN ---
Subjective - Date & Time of Evaluation Date of Evaluation: 02/10/18 Time of Evaluation: 07:40 - Subjective Subjective: Medicine progress note for Dr. Chavis Patient seen and examined. ROS unobtainable due to anoxic brain injury. No acute events noted. Objective - Vital Signs/Intake and Output Vital Signs (last 24 hours): Temp Pulse Resp BP Pulse Ox 98.5 F 70 20 101/69 98 02/10/18 00:00 02/10/18 00:00 02/10/18 00:00 02/10/18 00:00 02/10/18 00:00 Intake and Output: 02/10/18 02/10/18 06:59 18:59 Intake Total 1720 Output Total 1051 Balance 669 - Medications Medications: Current Medications Aspirin (Aspirin Chewable) 81 mg PEG DAILY [facility] Last Admin: 02/09/18 09:24 Dose: 81 mg Carvedilol (Coreg) 3.125 mg PO BID [facility] Last Admin: 02/09/18 18:25 Dose: 3.125 mg Enoxaparin Sodium (Lovenox) 40 mg SC DAILY [facility] Last Admin: 02/09/18 10:25 Dose: 40 mg Famotidine (Pepcid) 20 mg PEG DAILY [facility] Last Admin: 02/09/18 09:24 Dose: 20 mg Finasteride (Proscar) 5 mg PO DAILY [facility] Last Admin: 02/09/18 09:29 Dose: 5 mg Levetiracetam (Keppra) 500 mg PEG BID [facility] Last Admin: 02/09/18 18:25 Dose: 500 mg Mupirocin (Bactroban Ointment) 0 gm TOP DAILY [facility] Last Admin: 02/09/18 10:26 Dose: 1 applic Rosuvastatin Calcium (Crestor) 2.5 mg PEG HS [facility] Last Admin: 02/09/18 21:22 Dose: 2.5 mg Scopolamine (Transderm-Scop) 1 patch TD Q3D [facility] Last Admin: 02/09/18 10:25 Dose: 1 patch Tamsulosin HCl (Flomax) 0.4 mg PEG DAILY [facility] Last Admin: 02/09/18 09:24 Dose: 0.4 mg - Labs Labs: 02/08/18 08:38 02/08/18 08:38 PT 10.6 SECONDS (9.7-12.2) 11/24/15 14:10 INR 1.0 11/24/15 14:10 APTT 25 SECONDS (21-34) 11/24/15 14:10 - Additional Findings Additional findings: - Head Exam Head Exam: ATRAUMATIC, NORMAL INSPECTION - Eye Exam Eye Exam: absent: EOMI, Normal appearance - ENT Exam ENT Exam: Mucous Membranes Moist - Neck Exam Additional comments: Tracheostomy in place - Respiratory Exam Respiratory Exam:Rhonchi. absent: Clear to Auscultation Bilateral (excessive mucous production), Respiratory Distress - Cardiovascular Exam Cardiovascular Exam: REGULAR RHYTHM, +S1, +S2 - GI/Abdominal Exam GI & Abdominal Exam: Distended, Soft, Hypoactive Bowel Sounds. absent: Firm, Mass Additional comments: PEG in place without erythema or swelling of surrounding skin - Extremities Exam Extremities Exam: absent: Pedal Edema - Neurological Exam Neurological Exam: Altered. absent: Alert, Awake, Oriented x3 - Psychiatric Exam Psychiatric exam: Altered (Patient is non-verbal from anoxic brain injury sustained on 05/2015). absent: Normal Affect, Normal Mood - Skin Skin Exam: Dry, Intact, Warm. Assessment and Plan - Assessment and Plan (Free Text) Plan: (1) Anoxic encephalopathy Assessment & Plan: * s/p cardiac arrest in 05/2015 * no acute changes in mental status. * Pt has non spontaneous movements. * patient is currently on 45cc/hr on tube feedings * via PEG * Aspirin 81mg daily * Keppra 500mg bid Status: Chronic (2) Acute Respiratory failure Assessment & Plan: * Trach in place, continue daily monitoring for secretions. No change in management at this time. * Continue with aggressive suctioning multiple times a day per respiratory therapist if secretions are thickened * Scopolamine 1 patch TD Q3D JOO * Most recent chest xray: * 09/28/17: no active disease. No significant interval change compared to. Status: Resolved (3) History of Recurrent UTIs Assessment & Plan: * ID consult: Dr. Armstrong --> help appreciated * Patient is afebrile, no apparent leukocytosis * Patient is off IV abx since 08/05/17 * patient has condom catheter and Bladder scan PRN to prevent urinary retention Status: Acute (4) History of Urinary retention Assessment & Plan: * Tamsulosin 0.4mg daily * Finasteride 5 mg daily * Bladder scan up to 3x a week to monitor residual urine * patient has had history of recurrent UTIs Status: Chronic (5) Hypokalemia Assessment & Plan: * Monitor and replete Status: Acute (6) History of Sacral ulcer Assessment & Plan: * Healed * Cont with offloading/cushioning/turning * Continue frequent turning, protective ointment and skin checks. Status: Resolved (7) History of coronary artery disease Assessment & Plan: * s/p cardiac stents on 06/13/15 * Cont ASA 81mg via PEG daily * Cont Coreg 3.125mg PEG BID * Rosuvastatin 2.5mg PO HS Status: Acute (8) History of Seizures Assessment & Plan: * Continue Keppra 500mg PEG BID for seizure prophylaxis * Monitor for activity Status: Chronic (9) Lower extremity edema Assessment & Plan: * Improved * SCDs in place * Pressure ulcer boots on b/l * Continue to monitor Status: Chronic (10) Prophylactic measure Assessment & Plan: * Pepcid 20 mg PEG daily * Lovenox 40mg SC daily * SCDs and offloading boots * continue to turn and reposition q2hrs * Continue to monitor medication administrations and clinical presentation weekly labs. 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 Per case management 10/08: unable to place patient. No changes at this time. Discussed with Dr. Palmira Johnson PGY-1
[2018-02-10] MEDS: levETIRAcetam 100 mg/ml (5ml) Oral Syringe PEG SCH ×2 (10:04→18:59)
[2018-02-10] MEDS: Enoxaparin 60 mg Syringe SC SCH (10:05)
[2018-02-10] MEDS: Rosuvastatin Calcium 2.5 mg Tab PEG SCH (21:58)
[2018-02-11] MEDS: Enoxaparin 60 mg Syringe SC SCH (10:59)
[2018-02-11] MEDS: levETIRAcetam 100 mg/ml (5ml) Oral Syringe PEG SCH ×2 (10:59→18:12)
[2018-02-11] MEDS: Rosuvastatin Calcium 2.5 mg Tab PEG SCH (21:37)
--- NOTE | 2018-02-12 06:54 | CP.PCM.PN ---
Subjective - Date & Time of Evaluation Date of Evaluation: 02/12/18 Time of Evaluation: 07:00 - Subjective Subjective: Medicine progress note for Dr. Chavis Patient seen and examined. Cannot obtain ROS due to anoxic brain injury. No acute events noted. Objective - Vital Signs/Intake and Output Vital Signs (last 24 hours): Temp Pulse Resp BP Pulse Ox 98.1 F 64 20 117/83 99 02/12/18 00:00 02/12/18 00:00 02/12/18 00:00 02/12/18 00:00 02/12/18 00:00 Intake and Output: 02/11/18 02/12/18 18:59 06:59 Intake Total 910 860 Output Total 850 Balance 910 10 - Medications Medications: Current Medications Aspirin (Aspirin Chewable) 81 mg PEG DAILY [facility] Last Admin: 02/11/18 10:58 Dose: 81 mg Carvedilol (Coreg) 3.125 mg PO BID [facility] Last Admin: 02/11/18 18:12 Dose: 3.125 mg Enoxaparin Sodium (Lovenox) 40 mg SC DAILY [facility] Last Admin: 02/11/18 10:59 Dose: 40 mg Famotidine (Pepcid) 20 mg PEG DAILY [facility] Last Admin: 02/11/18 10:59 Dose: 20 mg Finasteride (Proscar) 5 mg PO DAILY [facility] Last Admin: 02/11/18 10:59 Dose: 5 mg Levetiracetam (Keppra) 500 mg PEG BID [facility] Last Admin: 02/11/18 18:12 Dose: 500 mg Mupirocin (Bactroban Ointment) 0 gm TOP DAILY [facility] Last Admin: 02/11/18 11:00 Dose: 1 applic Rosuvastatin Calcium (Crestor) 2.5 mg PEG HS [facility] Last Admin: 02/11/18 21:37 Dose: 2.5 mg Scopolamine (Transderm-Scop) 1 patch TD Q3D [facility] Last Admin: 02/09/18 10:25 Dose: 1 patch Tamsulosin HCl (Flomax) 0.4 mg PEG DAILY [facility] Last Admin: 02/11/18 10:59 Dose: 0.4 mg - Labs Labs: 02/08/18 08:38 02/08/18 08:38 PT 10.6 SECONDS (9.7-12.2) 11/24/15 14:10 INR 1.0 11/24/15 14:10 APTT 25 SECONDS (21-34) 11/24/15 14:10 - Additional Findings Additional findings: - Head Exam Head Exam: ATRAUMATIC, NORMAL INSPECTION - Eye Exam Eye Exam: absent: EOMI, Normal appearance - ENT Exam ENT Exam: Mucous Membranes Moist - Neck Exam Additional comments: Tracheostomy in place - Respiratory Exam Respiratory Exam:Rhonchi. absent: Clear to Auscultation Bilateral (excessive mucous production), Respiratory Distress - Cardiovascular Exam Cardiovascular Exam: REGULAR RHYTHM, +S1, +S2 - GI/Abdominal Exam GI & Abdominal Exam: Distended, Soft, Hypoactive Bowel Sounds. absent: Firm, Mass Additional comments: PEG in place without erythema or swelling of surrounding skin - Extremities Exam Extremities Exam: absent: Pedal Edema - Neurological Exam Neurological Exam: Altered. absent: Alert, Awake, Oriented x3 - Psychiatric Exam Psychiatric exam: Altered (Patient is non-verbal from anoxic brain injury sustained on 05/2015). absent: Normal Affect, Normal Mood - Skin Skin Exam: Dry, Intact, Warm. Assessment and Plan - Assessment and Plan (Free Text) Plan: (1) Anoxic encephalopathy Assessment & Plan: * s/p cardiac arrest in 05/2015 * no acute changes in mental status. * Pt has non spontaneous movements. * patient is currently on 45cc/hr on tube feedings * via PEG * Aspirin 81mg daily * Keppra 500mg bid Status: Chronic (2) Acute Respiratory failure Assessment & Plan: * Trach in place, continue daily monitoring for secretions. No change in management at this time. * Continue with aggressive suctioning multiple times a day per respiratory therapist if secretions are thickened * Scopolamine 1 patch TD Q3D JOO * Most recent chest xray: * 09/28/17: no active disease. No significant interval change compared to. Status: Resolved (3) History of Recurrent UTIs Assessment & Plan: * ID consult: Dr. Armstrong --> help appreciated * Patient is afebrile, no apparent leukocytosis * Patient is off IV abx since 08/05/17 * patient has condom catheter and Bladder scan PRN to prevent urinary retention Status: Acute (4) History of Urinary retention Assessment & Plan: * Tamsulosin 0.4mg daily * Finasteride 5 mg daily * Bladder scan up to 3x a week to monitor residual urine * patient has had history of recurrent UTIs Status: Chronic (5) Hypokalemia Assessment & Plan: * Monitor and replete Status: Acute (6) History of Sacral ulcer Assessment & Plan: * Healed * Cont with offloading/cushioning/turning * Continue frequent turning, protective ointment and skin checks. Status: Resolved (7) History of coronary artery disease Assessment & Plan: * s/p cardiac stents on 06/13/15 * Cont ASA 81mg via PEG daily * Cont Coreg 3.125mg PEG BID * Rosuvastatin 2.5mg PO HS Status: Acute (8) History of Seizures Assessment & Plan: * Continue Keppra 500mg PEG BID for seizure prophylaxis * Monitor for activity Status: Chronic (9) Lower extremity edema Assessment & Plan: * Improved * SCDs in place * Pressure ulcer boots on b/l * Continue to monitor Status: Chronic (10) Prophylactic measure Assessment & Plan: * Pepcid 20 mg PEG daily * Lovenox 40mg SC daily * SCDs and offloading boots * continue to turn and reposition q2hrs * Continue to monitor medication administrations and clinical presentation weekly labs. 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 Per case management 10/08: unable to place patient. No changes at this time. Discussed with Dr. Palmira Johnson PGY-1
[2018-02-12] MEDS: levETIRAcetam 100 mg/ml (5ml) Oral Syringe PEG SCH ×2 (09:53→17:45)
[2018-02-12] MEDS: Enoxaparin 60 mg Syringe SC SCH (09:53)
[2018-02-12] MEDS: Rosuvastatin Calcium 2.5 mg Tab PEG SCH (21:34)
[2018-02-13] MEDS: levETIRAcetam 100 mg/ml (5ml) Oral Syringe PEG SCH ×2 (10:09→18:24)
[2018-02-13] MEDS: Enoxaparin 60 mg Syringe SC SCH (10:09)
[2018-02-13] MEDS: Rosuvastatin Calcium 2.5 mg Tab PEG SCH (21:13)
[2018-02-14] MEDS: levETIRAcetam 100 mg/ml (5ml) Oral Syringe PEG SCH ×2 (10:23→18:08)
[2018-02-14] MEDS: Enoxaparin 60 mg Syringe SC SCH (10:23)
[2018-02-14] MEDS: Rosuvastatin Calcium 2.5 mg Tab PEG SCH (21:42)
--- NOTE | 2018-02-15 07:01 | CP.PCM.PN ---
<AlexFrancis Kassandra - Last Filed: 02/15/18 12:45> Subjective - Date & Time of Evaluation Date of Evaluation: 02/15/18 Time of Evaluation: 07:00 - Subjective Subjective: Medicine progress note for Dr. Moore Patient seen and examined. Unable to obtain ROS due to anoxic brain injury in 2014. No acute events noted. Objective - Vital Signs/Intake and Output Vital Signs (last 24 hours): Temp Pulse Resp BP Pulse Ox 98.3 F 71 20 113/70 99 02/15/18 00:00 02/15/18 00:00 02/15/18 00:00 02/15/18 00:00 02/15/18 00:00 Intake and Output: 02/14/18 02/15/18 18:59 06:59 Intake Total 860 860 Output Total 300 300 Balance 560 560 - Medications Medications: Current Medications Aspirin (Aspirin Chewable) 81 mg PEG DAILY [facility] Last Admin: 02/14/18 10:22 Dose: 81 mg Enoxaparin Sodium (Lovenox) 40 mg SC DAILY [facility] Last Admin: 02/14/18 10:23 Dose: 40 mg Famotidine (Pepcid) 20 mg PEG DAILY [facility] Last Admin: 02/14/18 10:24 Dose: 20 mg Finasteride (Proscar) 5 mg PO DAILY [facility] Last Admin: 02/14/18 10:24 Dose: 5 mg Levetiracetam (Keppra) 500 mg PEG BID [facility] Last Admin: 02/14/18 18:08 Dose: 500 mg Mupirocin (Bactroban Ointment) 0 gm TOP DAILY [facility] Last Admin: 02/14/18 10:23 Dose: 1 applic Rosuvastatin Calcium (Crestor) 2.5 mg PEG HS [facility] Last Admin: 02/14/18 21:42 Dose: 2.5 mg Scopolamine (Transderm-Scop) 1 patch TD Q3D [facility] Last Admin: 02/12/18 09:53 Dose: 1 patch Tamsulosin HCl (Flomax) 0.4 mg PEG DAILY [facility] Last Admin: 02/14/18 10:23 Dose: 0.4 mg - Labs Labs: 02/08/18 08:38 02/08/18 08:38 PT 10.6 SECONDS (9.7-12.2) 11/24/15 14:10 INR 1.0 11/24/15 14:10 APTT 25 SECONDS (21-34) 11/24/15 14:10 - Additional Findings Additional findings: - Head Exam Head Exam: ATRAUMATIC, NORMAL INSPECTION - Eye Exam Eye Exam: absent: EOMI, Normal appearance - ENT Exam ENT Exam: Mucous Membranes Moist - Neck Exam Additional comments: Tracheostomy in place - Respiratory Exam Respiratory Exam:Rhonchi. absent: Clear to Auscultation Bilateral (excessive mucous production), Respiratory Distress - Cardiovascular Exam Cardiovascular Exam: REGULAR RHYTHM, +S1, +S2 - GI/Abdominal Exam GI & Abdominal Exam: Distended, Soft, Hypoactive Bowel Sounds. absent: Firm, Mass Additional comments: PEG in place without erythema or swelling of surrounding skin - Extremities Exam Extremities Exam: absent: Pedal Edema - Neurological Exam Neurological Exam: Altered. absent: Alert, Awake, Oriented x3 - Psychiatric Exam Psychiatric exam: Altered (Patient is non-verbal from anoxic brain injury sustained on 05/2015). absent: Normal Affect, Normal Mood - Skin Skin Exam: Dry, Intact, Warm. Assessment and Plan - Assessment and Plan (Free Text) Plan: (1) Anoxic encephalopathy Assessment & Plan: * s/p cardiac arrest in 05/2015 * no acute changes in mental status. * Pt has non spontaneous movements. * patient is currently on 45cc/hr on tube feedings * via PEG * Aspirin 81mg daily * Keppra 500mg bid Status: Chronic (2) Acute Respiratory failure Assessment & Plan: * Trach in place, continue daily monitoring for secretions. No change in management at this time. * Continue with aggressive suctioning multiple times a day per respiratory therapist if secretions are thickened * Scopolamine 1 patch TD Q3D JOO * Most recent chest xray: * 09/28/17: no active disease. No significant interval change compared to. Status: Resolved (3) History of Recurrent UTIs Assessment & Plan: * ID consult: Dr. Armstrong --> help appreciated * Patient is afebrile, no apparent leukocytosis * Patient is off IV abx since 08/05/17 * patient has condom catheter and Bladder scan PRN to prevent urinary retention Status: Acute (4) History of Urinary retention Assessment & Plan: * Tamsulosin 0.4mg daily * Finasteride 5 mg daily * Bladder scan up to 3x a week to monitor residual urine * patient has had history of recurrent UTIs Status: Chronic (5) Hypokalemia Assessment & Plan: * Monitor and replete Status: Acute (6) History of Sacral ulcer Assessment & Plan: * Healed * Cont with offloading/cushioning/turning * Continue frequent turning, protective ointment and skin checks. Status: Resolved (7) History of coronary artery disease Assessment & Plan: * s/p cardiac stents on 06/13/15 * Cont ASA 81mg via PEG daily * Cont Coreg 3.125mg PEG BID * Rosuvastatin 2.5mg PO HS Status: Acute (8) History of Seizures Assessment & Plan: * Continue Keppra 500mg PEG BID for seizure prophylaxis * Monitor for activity Status: Chronic (9) Lower extremity edema Assessment & Plan: * Improved * SCDs in place * Pressure ulcer boots on b/l * Continue to monitor Status: Chronic (10) Prophylactic measure Assessment & Plan: * Pepcid 20 mg PEG daily * Lovenox 40mg SC daily * SCDs and offloading boots * continue to turn and reposition q2hrs * Continue to monitor medication administrations and clinical presentation weekly labs. 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 Per case management 10/08: unable to place patient. No changes at this time. Discussed with Dr. Teresa Johnson PGY-1 <Jeison Moore - Last Filed: 02/16/18 17:21> Objective - Vital Signs/Intake and Output Vital Signs (last 24 hours): Temp Pulse Resp BP Pulse Ox 97.4 F L 67 20 117/81 99 02/16/18 15:01 02/16/18 15:01 02/16/18 15:01 02/16/18 15:01 02/16/18 15:01 Intake and Output: 02/16/18 02/16/18 06:59 18:59 Intake Total 1480 610 Output Total 650 Balance 830 610 - Medications Medications: Current Medications Aspirin (Aspirin Chewable) 81 mg PEG DAILY [facility] Last Admin: 02/16/18 09:23 Dose: 81 mg Carvedilol (Coreg) 3.125 mg PEG BID [facility] Enoxaparin Sodium (Lovenox) 40 mg SC DAILY [facility] Last Admin: 02/16/18 09:22 Dose: 40 mg Famotidine (Pepcid) 20 mg PEG DAILY [facility] Last Admin: 02/16/18 09:23 Dose: 20 mg Finasteride (Proscar) 5 mg PO DAILY [facility] Last Admin: 02/16/18 09:23 Dose: 5 mg Levetiracetam (Keppra) 500 mg PEG BID [facility] Last Admin: 02/16/18 09:23 Dose: 500 mg Mupirocin (Bactroban Ointment) 0 gm TOP DAILY [facility] Last Admin: 02/16/18 10:57 Dose: 1 applic Rosuvastatin Calcium (Crestor) 2.5 mg PEG HS [facility] Last Admin: 02/15/18 21:11 Dose: 2.5 mg Scopolamine (Transderm-Scop) 1 patch TD Q3D [facility] Last Admin: 02/15/18 11:54 Dose: 1 patch Tamsulosin HCl (Flomax) 0.4 mg PEG DAILY [facility] Last Admin: 02/16/18 09:22 Dose: 0.4 mg - Labs Labs: 02/15/18 07:14 02/15/18 07:14 PT 10.6 SECONDS (9.7-12.2) 11/24/15 14:10 INR 1.0 11/24/15 14:10 APTT 25 SECONDS (21-34) 11/24/15 14:10 Attending/Attestation - Attestation I have personally seen and examined this patient.: No I have fully participated in the care of the patient.: Yes I have reviewed all pertinent clinical information, including history, physical exam and plan: Yes
[2018-02-15 07:34] LABS: ALB/GLOB RATIO 0.8 (1.0-2.1); ALBUMIN 3.5 g/dL (3.5-5.0); ALT/SGPT 37 U/L (21-72); AST/SGOT 19 U/L (17-59); BLOOD UREA NITROGEN 12 mg/dL (9-20); CALCIUM 8.4 mg/dl (8.6-10.4); GFR NON-AFRICAN AMERICAN > 60
[2018-02-15 07:39] LABS: BASO % 0.3 % (0.0-2.0); EOS # 0.3 K/uL (0.0-0.7); EOS % 3.5 % (0.0-4.0); HEMOGLOBIN 11.6 g/dL (12.0-18.0); LYMPH # 2.4 K/uL (1.0-4.3); LYMPH % 30.8 % (20.0-40.0); MEAN CELL VOLUME 87.6 fL (80.0-94.0); MEAN CORPUSCULAR HEMOGLOBIN 29.4 pg (27.0-31.0); MEAN CORPUSCULAR HGB CONC 33.6 g/dL (33.0-37.0); MEAN PLATELET VOLUME 9.3 fL (7.2-11.7); MONO # 0.8 K/uL (0.0-0.8); MONO % 10.7 % (0.0-10.0); NEUT # 4.3 K/uL (1.8-7.0); NEUT % 54.7 % (50.0-75.0); NRBC % 0.2 % (0.0-2.0); RBC 3.93 Mil/uL (4.40-5.90); RED CELL DISTRIBUTION WIDTH 15.4 % (11.5-14.5); WHITE BLOOD COUNT 7.9 K/uL (4.8-10.8)
[2018-02-15] MEDS: levETIRAcetam 100 mg/ml (5ml) Oral Syringe PEG SCH ×2 (10:09→17:58)
[2018-02-15] MEDS: Enoxaparin 60 mg Syringe SC SCH (10:09)
[2018-02-15] MEDS: Rosuvastatin Calcium 2.5 mg Tab PEG SCH (21:11)
[2018-02-16] MEDS: Enoxaparin 60 mg Syringe SC SCH (09:22)
[2018-02-16] MEDS: levETIRAcetam 100 mg/ml (5ml) Oral Syringe PEG SCH ×2 (09:23→17:52)
[2018-02-16] MEDS: Rosuvastatin Calcium 2.5 mg Tab PEG SCH ×2 (21:07→21:08)
--- NOTE | 2018-02-17 07:24 | CP.PCM.PN ---
<IsisPancho ashtona S - Last Filed: 02/17/18 11:09> Subjective - Date & Time of Evaluation Date of Evaluation: 02/17/18 Time of Evaluation: 07:50 - Subjective Subjective: Medicine progress note for Dr. Moore Patient seen and examined. Cannot obtain ROS due to anoxic brain injury in 2014. No acute events noted. Objective - Vital Signs/Intake and Output Vital Signs (last 24 hours): Temp Pulse Resp BP Pulse Ox 98.2 F 66 20 103/67 98 02/16/18 23:27 02/16/18 23:27 02/16/18 23:27 02/16/18 23:27 02/16/18 23:27 Intake and Output: 02/17/18 02/17/18 06:59 18:59 Intake Total 1720 Output Total 1000 Balance 720 - Medications Medications: Current Medications Aspirin (Aspirin Chewable) 81 mg PEG DAILY [facility] Last Admin: 02/16/18 09:23 Dose: 81 mg Carvedilol (Coreg) 3.125 mg PEG BID [facility] Last Admin: 02/16/18 19:10 Dose: 3.125 mg Enoxaparin Sodium (Lovenox) 40 mg SC DAILY [facility] Last Admin: 02/16/18 09:22 Dose: 40 mg Famotidine (Pepcid) 20 mg PEG DAILY [facility] Last Admin: 02/16/18 09:23 Dose: 20 mg Finasteride (Proscar) 5 mg PO DAILY [facility] Last Admin: 02/16/18 09:23 Dose: 5 mg Levetiracetam (Keppra) 500 mg PEG BID [facility] Last Admin: 02/16/18 17:52 Dose: 500 mg Mupirocin (Bactroban Ointment) 0 gm TOP DAILY [facility] Last Admin: 02/16/18 10:57 Dose: 1 applic Rosuvastatin Calcium (Crestor) 2.5 mg PEG HS [facility] Last Admin: 02/16/18 21:08 Dose: 2.5 mg Scopolamine (Transderm-Scop) 1 patch TD Q3D [facility] Last Admin: 02/15/18 11:54 Dose: 1 patch Tamsulosin HCl (Flomax) 0.4 mg PEG DAILY [facility] Last Admin: 02/16/18 09:22 Dose: 0.4 mg - Labs Labs: 02/15/18 07:14 02/15/18 07:14 PT 10.6 SECONDS (9.7-12.2) 11/24/15 14:10 INR 1.0 11/24/15 14:10 APTT 25 SECONDS (21-34) 11/24/15 14:10 - Additional Findings Additional findings: - Head Exam Head Exam: ATRAUMATIC, NORMAL INSPECTION - Eye Exam Eye Exam: absent: EOMI, Normal appearance - ENT Exam ENT Exam: Mucous Membranes Moist - Neck Exam Additional comments: Tracheostomy in place - Respiratory Exam Respiratory Exam: Clear to Auscultation Bilateral (excessive mucous production) . absent: Respiratory Distress - Cardiovascular Exam Cardiovascular Exam: REGULAR RHYTHM, +S1, +S2 - GI/Abdominal Exam GI & Abdominal Exam: Distended, Soft, Hypoactive Bowel Sounds. absent: Firm, Mass Additional comments: PEG in place without erythema or swelling of surrounding skin - Extremities Exam Extremities Exam: absent: Pedal Edema - Neurological Exam Neurological Exam: Altered. absent: Alert, Awake, Oriented x3 - Psychiatric Exam Psychiatric exam: Altered (Patient is non-verbal from anoxic brain injury sustained on 05/2015). absent: Normal Affect, Normal Mood - Skin Skin Exam: Dry, Intact, Warm. Assessment and Plan - Assessment and Plan (Free Text) Plan: (1) Anoxic encephalopathy Assessment & Plan: * s/p cardiac arrest in 05/2015 * no acute changes in mental status. * Pt has non spontaneous movements. * patient is currently on 45cc/hr on tube feedings * via PEG * Aspirin 81mg daily * Keppra 500mg bid Status: Chronic (2) Acute Respiratory failure Assessment & Plan: * Trach in place, continue daily monitoring for secretions. No change in management at this time. * Continue with aggressive suctioning multiple times a day per respiratory therapist if secretions are thickened * Scopolamine 1 patch TD Q3D JOO * Most recent chest xray: * 09/28/17: no active disease. No significant interval change compared to. Status: Resolved (3) History of Recurrent UTIs Assessment & Plan: * ID consult: Dr. Armstrong --> help appreciated * Patient is afebrile, no apparent leukocytosis * Patient is off IV abx since 08/05/17 * patient has condom catheter and Bladder scan PRN to prevent urinary retention Status: Acute (4) History of Urinary retention Assessment & Plan: * Tamsulosin 0.4mg daily * Finasteride 5 mg daily * Bladder scan up to 3x a week to monitor residual urine * patient has had history of recurrent UTIs Status: Chronic (5) Hypokalemia Assessment & Plan: * Monitor and replete Status: Acute (6) History of Sacral ulcer Assessment & Plan: * Healed * Cont with offloading/cushioning/turning * Continue frequent turning, protective ointment and skin checks. Status: Resolved (7) History of coronary artery disease Assessment & Plan: * s/p cardiac stents on 06/13/15 * Cont ASA 81mg via PEG daily * Cont Coreg 3.125mg PEG BID * Rosuvastatin 2.5mg PO HS Status: Acute (8) History of Seizures Assessment & Plan: * Continue Keppra 500mg PEG BID for seizure prophylaxis * Monitor for activity Status: Chronic (9) Lower extremity edema Assessment & Plan: * Improved * SCDs in place * Pressure ulcer boots on b/l * Continue to monitor Status: Chronic (10) Prophylactic measure Assessment & Plan: * Pepcid 20 mg PEG daily * Lovenox 40mg SC daily * SCDs and offloading boots * continue to turn and reposition q2hrs * Continue to monitor medication administrations and clinical presentation weekly labs. 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 Per case management 10/08: unable to place patient. No changes at this time. Discussed with Dr. Teresa Johnson PGY-1 <Jeison Moore - Last Filed: 02/18/18 22:28> Objective - Vital Signs/Intake and Output Vital Signs (last 24 hours): Temp Pulse Resp BP Pulse Ox 97.8 F 72 20 99/65 L 97 02/18/18 15:00 02/18/18 15:00 02/18/18 15:00 02/18/18 15:00 02/18/18 15:00 Intake and Output: 02/18/18 02/19/18 18:59 06:59 Intake Total 860 Output Total 250 Balance 610 - Medications Medications: Current Medications Aspirin (Aspirin Chewable) 81 mg PEG DAILY [facility] Last Admin: 02/18/18 10:29 Dose: 81 mg Carvedilol (Coreg) 3.125 mg PEG BID [facility] Last Admin: 02/18/18 17:27 Dose: 3.125 mg Enoxaparin Sodium (Lovenox) 40 mg SC DAILY [facility] Last Admin: 02/18/18 10:29 Dose: 40 mg Famotidine (Pepcid) 20 mg PEG DAILY [facility] Last Admin: 02/18/18 10:30 Dose: 20 mg Finasteride (Proscar) 5 mg PO DAILY [facility] Last Admin: 02/18/18 10:30 Dose: 5 mg Levetiracetam (Keppra) 500 mg PEG BID [facility] Last Admin: 02/18/18 17:26 Dose: 500 mg Mupirocin (Bactroban Ointment) 0 gm TOP DAILY [facility] Last Admin: 02/18/18 10:30 Dose: 1 applic Rosuvastatin Calcium (Crestor) 2.5 mg PEG HS [facility] Last Admin: 02/18/18 21:48 Dose: 2.5 mg Scopolamine (Transderm-Scop) 1 patch TD Q3D [facility] Last Admin: 02/18/18 10:29 Dose: 1 patch Tamsulosin HCl (Flomax) 0.4 mg PEG DAILY [facility] Last Admin: 02/18/18 10:30 Dose: 0.4 mg - Labs Labs: 02/15/18 07:14 02/15/18 07:14 PT 10.6 SECONDS (9.7-12.2) 11/24/15 14:10 INR 1.0 11/24/15 14:10 APTT 25 SECONDS (21-34) 11/24/15 14:10 Attending/Attestation - Attestation I have personally seen and examined this patient.: Yes I have fully participated in the care of the patient.: Yes I have reviewed all pertinent clinical information, including history, physical exam and plan: Yes Notes (Text): no new changes
[2018-02-17] MEDS: levETIRAcetam 100 mg/ml (5ml) Oral Syringe PEG SCH ×2 (10:29→17:51)
[2018-02-17] MEDS: Enoxaparin 60 mg Syringe SC SCH (10:40)
[2018-02-17] MEDS: Rosuvastatin Calcium 2.5 mg Tab PEG SCH (21:03)
[2018-02-18] MEDS: Enoxaparin 60 mg Syringe SC SCH (10:29)
[2018-02-18] MEDS: levETIRAcetam 100 mg/ml (5ml) Oral Syringe PEG SCH ×2 (10:30→17:26)
[2018-02-18] MEDS: Rosuvastatin Calcium 2.5 mg Tab PEG SCH (21:48)
--- NOTE | 2018-02-19 07:17 | CP.PCM.PN ---
<IsisdaishaFrancis S - Last Filed: 02/19/18 14:28> Subjective - Date & Time of Evaluation Date of Evaluation: 02/19/18 Time of Evaluation: 07:30 - Subjective Subjective: Medicine progress note for Dr. Hallman Patient seen and examined. Due to anoxic brain injury in 2014, patient has remained in a non-verbal state. Cannot obtain ROS. No acute events noted. Objective - Vital Signs/Intake and Output Vital Signs (last 24 hours): Temp Pulse Resp BP Pulse Ox 97.9 F 65 20 102/67 99 02/18/18 23:37 02/18/18 23:37 02/18/18 23:37 02/18/18 23:37 02/18/18 23:37 Intake and Output: 02/19/18 02/19/18 06:59 18:59 Intake Total 860 Output Total 450 Balance 410 - Medications Medications: Current Medications Aspirin (Aspirin Chewable) 81 mg PEG DAILY [facility] Last Admin: 02/18/18 10:29 Dose: 81 mg Carvedilol (Coreg) 3.125 mg PEG BID [facility] Last Admin: 02/18/18 17:27 Dose: 3.125 mg Enoxaparin Sodium (Lovenox) 40 mg SC DAILY [facility] Last Admin: 02/18/18 10:29 Dose: 40 mg Famotidine (Pepcid) 20 mg PEG DAILY [facility] Last Admin: 02/18/18 10:30 Dose: 20 mg Finasteride (Proscar) 5 mg PO DAILY [facility] Last Admin: 02/18/18 10:30 Dose: 5 mg Levetiracetam (Keppra) 500 mg PEG BID [facility] Last Admin: 02/18/18 17:26 Dose: 500 mg Mupirocin (Bactroban Ointment) 0 gm TOP DAILY [facility] Last Admin: 02/18/18 10:30 Dose: 1 applic Rosuvastatin Calcium (Crestor) 2.5 mg PEG HS [facility] Last Admin: 02/18/18 21:48 Dose: 2.5 mg Scopolamine (Transderm-Scop) 1 patch TD Q3D [facility] Last Admin: 02/18/18 10:29 Dose: 1 patch Tamsulosin HCl (Flomax) 0.4 mg PEG DAILY [facility] Last Admin: 02/18/18 10:30 Dose: 0.4 mg - Labs Labs: 02/15/18 07:14 02/15/18 07:14 PT 10.6 SECONDS (9.7-12.2) 11/24/15 14:10 INR 1.0 11/24/15 14:10 APTT 25 SECONDS (21-34) 11/24/15 14:10 - Additional Findings Additional findings: - Head Exam Head Exam: ATRAUMATIC, NORMAL INSPECTION - Eye Exam Eye Exam: absent: EOMI, Normal appearance - ENT Exam ENT Exam: Mucous Membranes Moist - Neck Exam Additional comments: Tracheostomy in place - Respiratory Exam Respiratory Exam: Clear to Auscultation Bilateral (excessive mucous production) . absent: Respiratory Distress - Cardiovascular Exam Cardiovascular Exam: REGULAR RHYTHM, +S1, +S2 - GI/Abdominal Exam GI & Abdominal Exam: Distended, Soft, Hypoactive Bowel Sounds. absent: Firm, Mass Additional comments: PEG in place without erythema or swelling of surrounding skin - Extremities Exam Extremities Exam: absent: Pedal Edema - Neurological Exam Neurological Exam: Altered. absent: Alert, Awake, Oriented x3 - Psychiatric Exam Psychiatric exam: Altered (Patient is non-verbal from anoxic brain injury sustained on 05/2015). absent: Normal Affect, Normal Mood - Skin Skin Exam: Dry, Intact, Warm. Assessment and Plan - Assessment and Plan (Free Text) Plan: (1) Anoxic encephalopathy Assessment & Plan: * s/p cardiac arrest in 05/2015 * no acute changes in mental status. * Pt has non spontaneous movements. * patient is currently on 45cc/hr on tube feedings * via PEG * Aspirin 81mg daily * Keppra 500mg bid Status: Chronic (2) Acute Respiratory failure Assessment & Plan: * Trach in place, continue daily monitoring for secretions. No change in management at this time. * Continue with aggressive suctioning multiple times a day per respiratory therapist if secretions are thickened * Scopolamine 1 patch TD Q3D JOO * Most recent chest xray: * 09/28/17: no active disease. No significant interval change compared to. Status: Resolved (3) History of Recurrent UTIs Assessment & Plan: * ID consult: Dr. Armstrong --> help appreciated * Patient is afebrile, no apparent leukocytosis * Patient is off IV abx since 08/05/17 * patient has condom catheter and Bladder scan PRN to prevent urinary retention Status: Acute (4) History of Urinary retention Assessment & Plan: * Tamsulosin 0.4mg daily * Finasteride 5 mg daily * Bladder scan up to 3x a week to monitor residual urine * patient has had history of recurrent UTIs Status: Chronic (5) Hypokalemia Assessment & Plan: * Monitor and replete Status: Acute (6) History of Sacral ulcer Assessment & Plan: * Healed * Cont with offloading/cushioning/turning * Continue frequent turning, protective ointment and skin checks. Status: Resolved (7) History of coronary artery disease Assessment & Plan: * s/p cardiac stents on 06/13/15 * Cont ASA 81mg via PEG daily * Cont Coreg 3.125mg PEG BID * Rosuvastatin 2.5mg PO HS Status: Acute (8) History of Seizures Assessment & Plan: * Continue Keppra 500mg PEG BID for seizure prophylaxis * Monitor for activity Status: Chronic (9) Lower extremity edema Assessment & Plan: * Improved * SCDs in place * Pressure ulcer boots on b/l * Continue to monitor Status: Chronic (10) Prophylactic measure Assessment & Plan: * Pepcid 20 mg PEG daily * Lovenox 40mg SC daily * SCDs and offloading boots * continue to turn and reposition q2hrs * Continue to monitor medication administrations and clinical presentation weekly labs. 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 Per case management, unable to place patient. No changes at this time. Discussed with Dr. Viji Johnson PGY-1 <Donavan Hallman - Last Filed: 03/31/18 10:33> Objective - Vital Signs/Intake and Output Vital Signs (last 24 hours): Temp Pulse Resp BP Pulse Ox 97.9 F 71 20 108/70 99 03/30/18 23:46 03/30/18 23:46 03/30/18 23:46 03/30/18 23:46 03/30/18 23:46 Intake and Output: 03/31/18 03/31/18 06:59 18:59 Intake Total 1720 Output Total 1200 Balance 520 - Medications Medications: Current Medications Aspirin (Aspirin Chewable) 81 mg PEG DAILY [facility] Last Admin: 03/31/18 10:13 Dose: 81 mg Carvedilol (Coreg) 3.125 mg PEG BID [facility] Last Admin: 03/31/18 10:27 Dose: 3.125 mg Enoxaparin Sodium (Lovenox) 40 mg SC DAILY [facility] Last Admin: 03/31/18 10:13 Dose: 40 mg Famotidine (Pepcid) 20 mg PEG DAILY [facility] Last Admin: 03/31/18 10:13 Dose: 20 mg Finasteride (Proscar) 5 mg PEG DAILY [facility] Last Admin: 03/31/18 10:12 Dose: 5 mg Levetiracetam (Keppra) 500 mg PO BID [facility] Last Admin: 03/31/18 10:12 Dose: 500 mg Rosuvastatin Calcium (Crestor) 2.5 mg PEG HS [facility] Last Admin: 03/30/18 21:08 Dose: 2.5 mg Scopolamine (Transderm-Scop) 1 patch TD Q3D [facility] Last Admin: 03/29/18 11:00 Dose: 1 patch Tamsulosin HCl (Flomax) 0.4 mg PEG DAILY [facility] Last Admin: 03/31/18 10:13 Dose: 0.4 mg - Labs Labs: 03/29/18 06:45 03/29/18 06:45 PT 10.6 SECONDS (9.7-12.2) 11/24/15 14:10 INR 1.0 11/24/15 14:10 APTT 25 SECONDS (21-34) 11/24/15 14:10 Attending/Attestation - Attestation I have personally seen and examined this patient.: Yes I have fully participated in the care of the patient.: Yes I have reviewed all pertinent clinical information, including history, physical exam and plan: Yes Notes (Text): (1) Anoxic encephalopathy (2) Acute Respiratory failure (3) History of Recurrent UTIs (4) History of Urinary retention
[2018-02-19] MEDS: levETIRAcetam 100 mg/ml (5ml) Oral Syringe PEG SCH ×2 (10:28→17:33)
[2018-02-19] MEDS: Enoxaparin 60 mg Syringe SC SCH (10:42)
[2018-02-19] MEDS: Rosuvastatin Calcium 2.5 mg Tab PEG SCH (21:43)
[2018-02-20] MEDS: levETIRAcetam 100 mg/ml (5ml) Oral Syringe PEG SCH ×2 (10:03→17:36)
[2018-02-20] MEDS: Enoxaparin 60 mg Syringe SC SCH (10:04)
--- NOTE | 2018-02-20 14:45 | CP.PCM.PCO ---
Physician Communication Note - Physician Communication Note Physician Communication Note: Full body skin exam did not reveal any ulcers
[2018-02-20] MEDS: Rosuvastatin Calcium 2.5 mg Tab PEG SCH (21:21)
[2018-02-21] MEDS: levETIRAcetam 100 mg/ml (5ml) Oral Syringe PEG SCH ×2 (09:37→17:20)
[2018-02-21] MEDS: Enoxaparin 60 mg Syringe SC SCH (09:38)
[2018-02-21] MEDS: Rosuvastatin Calcium 2.5 mg Tab PEG SCH (21:07)
[2018-02-22 06:17] LABS: BASO % 0.5 % (0.0-2.0); EOS # 0.3 K/uL (0.0-0.7); EOS % 3.4 % (0.0-4.0); LYMPH # 2.6 K/uL (1.0-4.3); LYMPH % 29.9 % (20.0-40.0); MEAN CELL VOLUME 88.4 fL (80.0-94.0); MEAN CORPUSCULAR HEMOGLOBIN 29.5 pg (27.0-31.0); MEAN CORPUSCULAR HGB CONC 33.3 g/dL (33.0-37.0); MEAN PLATELET VOLUME 9.2 fL (7.2-11.7); MONO # 0.7 K/uL (0.0-0.8); MONO % 7.7 % (0.0-10.0); NEUT # 5.1 K/uL (1.8-7.0); NEUT % 58.5 % (50.0-75.0); NRBC % 0.1 % (0.0-2.0); RBC 4.07 Mil/uL (4.40-5.90); RED CELL DISTRIBUTION WIDTH 15.4 % (11.5-14.5); WHITE BLOOD COUNT 8.6 K/uL (4.8-10.8)
[2018-02-22 07:25] LABS: ALB/GLOB RATIO 0.8 (1.0-2.1); ALBUMIN 3.4 g/dL (3.5-5.0); ALT/SGPT 27 U/L (21-72); AST/SGOT 27 U/L (17-59); BLOOD UREA NITROGEN 13 mg/dL (9-20); CALCIUM 8.5 mg/dl (8.6-10.4); GFR NON-AFRICAN AMERICAN > 60
--- NOTE | 2018-02-22 07:31 | CP.PCM.PN ---
Subjective - Date & Time of Evaluation Date of Evaluation: 02/22/18 Time of Evaluation: 07:10 - Subjective Subjective: Medicine progress note for Dr. Chavis Patient seen and examined. Cannot obtain ROS due to anoxic brain injury suffered in 2014. No acute events noted. Objective - Vital Signs/Intake and Output Vital Signs (last 24 hours): Temp Pulse Resp BP Pulse Ox 98.7 F 63 20 101/65 100 02/21/18 23:41 02/21/18 23:41 02/21/18 23:41 02/21/18 23:41 02/21/18 23:41 Intake and Output: 02/22/18 02/22/18 06:59 18:59 Intake Total 1220 Output Total 1200 Balance 20 - Medications Medications: Current Medications Aspirin (Aspirin Chewable) 81 mg PEG DAILY [facility] Last Admin: 02/21/18 09:38 Dose: 81 mg Carvedilol (Coreg) 3.125 mg PEG BID [facility] Last Admin: 02/21/18 17:20 Dose: 3.125 mg Enoxaparin Sodium (Lovenox) 40 mg SC DAILY [facility] Last Admin: 02/21/18 09:38 Dose: 40 mg Famotidine (Pepcid) 20 mg PEG DAILY [facility] Last Admin: 02/21/18 09:37 Dose: 20 mg Finasteride (Proscar) 5 mg PO DAILY [facility] Last Admin: 02/21/18 09:38 Dose: 5 mg Levetiracetam (Keppra) 500 mg PEG BID [facility] Last Admin: 02/21/18 17:20 Dose: 500 mg Rosuvastatin Calcium (Crestor) 2.5 mg PEG HS [facility] Last Admin: 02/21/18 21:07 Dose: 2.5 mg Scopolamine (Transderm-Scop) 1 patch TD Q3D [facility] Last Admin: 02/21/18 09:37 Dose: 1 patch Tamsulosin HCl (Flomax) 0.4 mg PEG DAILY [facility] Last Admin: 02/21/18 09:37 Dose: 0.4 mg - Labs Labs: 02/22/18 06:02 02/22/18 06:02 PT 10.6 SECONDS (9.7-12.2) 11/24/15 14:10 INR 1.0 11/24/15 14:10 APTT 25 SECONDS (21-34) 11/24/15 14:10 - Additional Findings Additional findings: - Head Exam Head Exam: ATRAUMATIC, NORMAL INSPECTION - Eye Exam Eye Exam: absent: EOMI, Normal appearance - ENT Exam ENT Exam: Mucous Membranes Moist - Neck Exam Additional comments: Tracheostomy in place - Respiratory Exam Respiratory Exam: Clear to Auscultation Bilateral (excessive mucous production) . absent: Respiratory Distress - Cardiovascular Exam Cardiovascular Exam: REGULAR RHYTHM, +S1, +S2 - GI/Abdominal Exam GI & Abdominal Exam: Distended, Soft, Hypoactive Bowel Sounds. absent: Firm, Mass Additional comments: PEG in place without erythema or swelling of surrounding skin - Extremities Exam Extremities Exam: absent: Pedal Edema - Neurological Exam Neurological Exam: Altered. absent: Alert, Awake, Oriented x3 - Psychiatric Exam Psychiatric exam: Altered (Patient is non-verbal from anoxic brain injury sustained on 05/2015). absent: Normal Affect, Normal Mood - Skin Skin Exam: Dry, Intact, Warm. Assessment and Plan - Assessment and Plan (Free Text) Plan: (1) Anoxic encephalopathy Assessment & Plan: * s/p cardiac arrest in 05/2015 * no acute changes in mental status. * Pt has non spontaneous movements. * patient is currently on 45cc/hr on tube feedings * via PEG * Aspirin 81mg daily * Keppra 500mg bid Status: Chronic (2) Acute Respiratory failure Assessment & Plan: * Trach in place, continue daily monitoring for secretions. No change in management at this time. * Continue with aggressive suctioning multiple times a day per respiratory therapist if secretions are thickened * Scopolamine 1 patch TD Q3D JOO * Most recent chest xray: * 09/28/17: no active disease. No significant interval change compared to. Status: Resolved (3) History of Recurrent UTIs Assessment & Plan: * ID consult: Dr. Armstrong --> help appreciated * Patient is afebrile, no apparent leukocytosis * Patient is off IV abx since 08/05/17 * patient has condom catheter and Bladder scan PRN to prevent urinary retention Status: Acute (4) History of Urinary retention Assessment & Plan: * Tamsulosin 0.4mg daily * Finasteride 5 mg daily * Bladder scan up to 3x a week to monitor residual urine * patient has had history of recurrent UTIs Status: Chronic (5) Hypokalemia Assessment & Plan: * Monitor and replete Status: Acute (6) History of Sacral ulcer Assessment & Plan: * Healed * Cont with offloading/cushioning/turning * Continue frequent turning, protective ointment and skin checks. Status: Resolved (7) History of coronary artery disease Assessment & Plan: * s/p cardiac stents on 06/13/15 * Cont ASA 81mg via PEG daily * Cont Coreg 3.125mg PEG BID * Rosuvastatin 2.5mg PO HS Status: Acute (8) History of Seizures Assessment & Plan: * Continue Keppra 500mg PEG BID for seizure prophylaxis * Monitor for activity Status: Chronic (9) Lower extremity edema Assessment & Plan: * Improved * SCDs in place * Pressure ulcer boots on b/l * Continue to monitor Status: Chronic (10) Prophylactic measure Assessment & Plan: * Pepcid 20 mg PEG daily * Lovenox 40mg SC daily * SCDs and offloading boots * continue to turn and reposition q2hrs * Continue to monitor medication administrations and clinical presentation weekly labs. 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 Per case management, unable to place patient. No changes at this time. Discussed with Dr. Palmira Johnson PGY-1
[2018-02-22] MEDS: levETIRAcetam 100 mg/ml (5ml) Oral Syringe PEG SCH ×2 (10:08→17:43)
[2018-02-22] MEDS: Enoxaparin 60 mg Syringe SC SCH (10:08)
[2018-02-22] MEDS: Rosuvastatin Calcium 2.5 mg Tab PEG SCH (21:17)
[2018-02-23] MEDS: Enoxaparin 60 mg Syringe SC SCH (09:35)
[2018-02-23] MEDS: levETIRAcetam 100 mg/ml (5ml) Oral Syringe PEG SCH ×2 (09:37→17:14)
[2018-02-23] MEDS: Rosuvastatin Calcium 2.5 mg Tab PEG SCH (21:47)
--- NOTE | 2018-02-24 06:25 | CP.PCM.PN ---
Subjective - Date & Time of Evaluation Date of Evaluation: 02/24/18 Time of Evaluation: 05:50 - Subjective Subjective: Medicine progress note for Dr. Chavis Patient seen and examined. Due to anoxic brain injury suffered in 2014, patient is non-verbal. Cannot obtain ROS. No acute events noted. Objective - Vital Signs/Intake and Output Vital Signs (last 24 hours): Temp Pulse Resp BP Pulse Ox 98.9 F 67 20 104/72 100 02/24/18 00:00 02/24/18 00:00 02/24/18 00:00 02/24/18 00:00 02/24/18 00:00 Intake and Output: 02/23/18 02/24/18 18:59 06:59 Intake Total 360 860 Output Total 300 400 Balance 60 460 - Medications Medications: Current Medications Aspirin (Aspirin Chewable) 81 mg PEG DAILY [facility] Last Admin: 02/23/18 09:36 Dose: 81 mg Carvedilol (Coreg) 3.125 mg PEG BID [facility] Last Admin: 02/23/18 17:14 Dose: 3.125 mg Enoxaparin Sodium (Lovenox) 40 mg SC DAILY [facility] Last Admin: 02/23/18 09:35 Dose: 40 mg Famotidine (Pepcid) 20 mg PEG DAILY [facility] Last Admin: 02/23/18 09:36 Dose: 20 mg Finasteride (Proscar) 5 mg PO DAILY [facility] Last Admin: 02/23/18 09:37 Dose: 5 mg Levetiracetam (Keppra) 500 mg PEG BID [facility] Last Admin: 02/23/18 17:14 Dose: 500 mg Rosuvastatin Calcium (Crestor) 2.5 mg PEG HS [facility] Last Admin: 02/23/18 21:47 Dose: 2.5 mg Scopolamine (Transderm-Scop) 1 patch TD Q3D [facility] Last Admin: 02/21/18 09:37 Dose: 1 patch Tamsulosin HCl (Flomax) 0.4 mg PEG DAILY [facility] Last Admin: 02/23/18 09:36 Dose: 0.4 mg - Labs Labs: 02/22/18 06:02 02/22/18 06:02 PT 10.6 SECONDS (9.7-12.2) 11/24/15 14:10 INR 1.0 11/24/15 14:10 APTT 25 SECONDS (21-34) 11/24/15 14:10 - Additional Findings Additional findings: - Head Exam Head Exam: ATRAUMATIC, NORMAL INSPECTION - Eye Exam Eye Exam: absent: EOMI, Normal appearance - ENT Exam ENT Exam: Mucous Membranes Moist - Neck Exam Additional comments: Tracheostomy in place - Respiratory Exam Respiratory Exam: Clear to Auscultation Bilateral (excessive mucous production) . absent: Respiratory Distress - Cardiovascular Exam Cardiovascular Exam: REGULAR RHYTHM, +S1, +S2 - GI/Abdominal Exam GI & Abdominal Exam: Distended, Soft, Hypoactive Bowel Sounds. absent: Firm, Mass Additional comments: PEG in place without erythema or swelling of surrounding skin - Extremities Exam Extremities Exam: absent: Pedal Edema - Neurological Exam Neurological Exam: Altered. absent: Alert, Awake, Oriented x3 - Psychiatric Exam Psychiatric exam: Altered (Patient is non-verbal from anoxic brain injury sustained on 05/2015). absent: Normal Affect, Normal Mood - Skin Skin Exam: Dry, Intact, Warm. Assessment and Plan - Assessment and Plan (Free Text) Plan: (1) Anoxic encephalopathy Assessment & Plan: * s/p cardiac arrest in 05/2015 * no acute changes in mental status. * Pt has non spontaneous movements. * patient is currently on 45cc/hr on tube feedings * via PEG * Aspirin 81mg daily * Keppra 500mg bid Status: Chronic (2) Acute Respiratory failure Assessment & Plan: * Trach in place, continue daily monitoring for secretions. No change in management at this time. * Continue with aggressive suctioning multiple times a day per respiratory therapist if secretions are thickened * Scopolamine 1 patch TD Q3D JOO * Most recent chest xray: * 09/28/17: no active disease. No significant interval change compared to. Status: Resolved (3) History of Recurrent UTIs Assessment & Plan: * ID consult: Dr. Armstrong --> help appreciated * Patient is afebrile, no apparent leukocytosis * Patient is off IV abx since 08/05/17 * patient has condom catheter and Bladder scan PRN to prevent urinary retention Status: Acute (4) History of Urinary retention Assessment & Plan: * Tamsulosin 0.4mg daily * Finasteride 5 mg daily * Bladder scan up to 3x a week to monitor residual urine * patient has had history of recurrent UTIs Status: Chronic (5) Hypokalemia Assessment & Plan: * Monitor and replete Status: Acute (6) History of Sacral ulcer Assessment & Plan: * Healed * Cont with offloading/cushioning/turning * Continue frequent turning, protective ointment and skin checks. Status: Resolved (7) History of coronary artery disease Assessment & Plan: * s/p cardiac stents on 06/13/15 * Cont ASA 81mg via PEG daily * Cont Coreg 3.125mg PEG BID * Rosuvastatin 2.5mg PO HS Status: Acute (8) History of Seizures Assessment & Plan: * Continue Keppra 500mg PEG BID for seizure prophylaxis * Monitor for activity Status: Chronic (9) Lower extremity edema Assessment & Plan: * Improved * SCDs in place * Pressure ulcer boots on b/l * Continue to monitor Status: Chronic (10) Prophylactic measure Assessment & Plan: * Pepcid 20 mg PEG daily * Lovenox 40mg SC daily * SCDs and offloading boots * continue to turn and reposition q2hrs * Continue to monitor medication administrations and clinical presentation weekly labs. 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 Per case management, unable to place patient. No changes at this time. Discussed with Dr. Palmira Johnson PGY-1
[2018-02-24] MEDS: Enoxaparin 60 mg Syringe SC SCH (11:33)
[2018-02-24] MEDS: levETIRAcetam 100 mg/ml (5ml) Oral Syringe PEG SCH ×2 (11:35→17:24)
[2018-02-24] MEDS: Rosuvastatin Calcium 2.5 mg Tab PEG SCH (21:03)
[2018-02-25] MEDS: Enoxaparin 60 mg Syringe SC SCH (10:21)
[2018-02-25] MEDS: levETIRAcetam 100 mg/ml (5ml) Oral Syringe PEG SCH ×2 (10:21→17:40)
[2018-02-25] MEDS: Rosuvastatin Calcium 2.5 mg Tab PEG SCH (22:15)
--- NOTE | 2018-02-26 07:31 | CP.PCM.PN ---
Subjective - Date & Time of Evaluation Date of Evaluation: 02/26/18 Time of Evaluation: 07:31 - Subjective Subjective: PGY1 Medicine Note for Dr. Chavis Patient seen and examined at bedside this morning. No acute events overnight. Patient is non-verbal due to anoxic brain injury suffered in 2014. ROS is unattainable. Objective - Vital Signs/Intake and Output Vital Signs (last 24 hours): Temp Pulse Resp BP Pulse Ox 98.3 F 69 20 120/79 100 02/26/18 00:00 02/26/18 05:30 02/26/18 05:30 02/26/18 05:30 02/26/18 05:30 Intake and Output: 02/26/18 02/26/18 06:59 18:59 Intake Total 1220 Output Total 950 Balance 270 - Medications Medications: Current Medications Aspirin (Aspirin Chewable) 81 mg PEG DAILY [facility] Last Admin: 02/25/18 10:21 Dose: 81 mg Carvedilol (Coreg) 3.125 mg PEG BID [facility] Last Admin: 02/25/18 17:40 Dose: 3.125 mg Enoxaparin Sodium (Lovenox) 40 mg SC DAILY [facility] Last Admin: 02/25/18 10:21 Dose: 40 mg Famotidine (Pepcid) 20 mg PEG DAILY [facility] Last Admin: 02/25/18 10:21 Dose: 20 mg Finasteride (Proscar) 5 mg PO DAILY [facility] Last Admin: 02/25/18 10:21 Dose: 5 mg Levetiracetam (Keppra) 500 mg PEG BID [facility] Last Admin: 02/25/18 17:40 Dose: 500 mg Rosuvastatin Calcium (Crestor) 2.5 mg PEG HS [facility] Last Admin: 02/25/18 22:15 Dose: 2.5 mg Scopolamine (Transderm-Scop) 1 patch TD Q3D [facility] Last Admin: 02/24/18 11:34 Dose: 1 patch Tamsulosin HCl (Flomax) 0.4 mg PEG DAILY [facility] Last Admin: 02/25/18 10:21 Dose: 0.4 mg - Labs Labs: 02/22/18 06:02 02/22/18 06:02 PT 10.6 SECONDS (9.7-12.2) 11/24/15 14:10 INR 1.0 11/24/15 14:10 APTT 25 SECONDS (21-34) 11/24/15 14:10 - Constitutional Appears: Chronically Ill - Head Exam Head Exam: ATRAUMATIC, NORMOCEPHALIC - Eye Exam Eye Exam: absent: EOMI, Scleral icterus - ENT Exam ENT Exam: Mucous Membranes Moist - Neck Exam Additional comments: Trach in place. - Respiratory Exam Respiratory Exam: Clear to Ausculation Bilateral, NORMAL BREATHING PATTERN. absent: Chest Wall Tenderness, Rales, Rhonchi, Wheezes, Respiratory Distress - Cardiovascular Exam Cardiovascular Exam: REGULAR RHYTHM, +S1, +S2 - GI/Abdominal Exam GI & Abdominal Exam: Distended, Soft, Hypoactive Bowel Sounds. absent: Firm, Guarding, Rigid, Tenderness Additional comments: PEG in place without erythema or swelling of surrounding skin - Extremities Exam Extremities Exam: absent: Calf Tenderness, Pedal Edema - Neurological Exam Neurological Exam: Altered. absent: Alert, Awake, Oriented x3, Reflexes Normal (no threat reflex) - Psychiatric Exam Psychiatric exam: absent: Normal Affect (Patient is non-verbal from anoxic brain injury sustained on 05/2015) - Skin Skin Exam: Dry, Warm Assessment and Plan - Assessment and Plan (Free Text) Plan: (1) Anoxic encephalopathy Assessment & Plan: * s/p cardiac arrest in 05/2015 * no acute changes in mental status. * Pt has non spontaneous movements. * patient is currently on 45cc/hr on tube feedings * via PEG * Aspirin 81mg daily * Keppra 500mg bid Status: Chronic (2) Acute Respiratory failure Assessment & Plan: * Trach in place, continue daily monitoring for secretions. No change in management at this time. * Continue with aggressive suctioning multiple times a day per respiratory therapist if secretions are thickened * Scopolamine 1 patch TD Q3D [facility] * Most recent chest xray: * 09/28/17: no active disease. No significant interval change compared to. Status: Resolved (3) History of Recurrent UTIs Assessment & Plan: * ID consult: Dr. Armstrong --> help appreciated * Patient is afebrile, no apparent leukocytosis * Patient is off IV abx since 08/05/17 * patient has condom catheter and Bladder scan PRN to prevent urinary retention Status: Acute (4) History of Urinary retention Assessment & Plan: * Tamsulosin 0.4mg daily * Finasteride 5 mg daily * Bladder scan up to 3x a week to monitor residual urine * patient has had history of recurrent UTIs Status: Chronic (5) Hypokalemia Assessment & Plan: * Monitor and replete Status: Acute (6) History of Sacral ulcer Assessment & Plan: * Healed * Cont with offloading/cushioning/turning * Continue frequent turning, protective ointment and skin checks. Status: Resolved (7) History of coronary artery disease Assessment & Plan: * s/p cardiac stents on 06/13/15 * Cont ASA 81mg via PEG daily * Cont Coreg 3.125mg PEG BID * Rosuvastatin 2.5mg PO HS Status: Acute (8) History of Seizures Assessment & Plan: * Continue Keppra 500mg PEG BID for seizure prophylaxis * Monitor for activity Status: Chronic (9) Lower extremity edema Assessment & Plan: * Improved * SCDs in place * Pressure ulcer boots on b/l * Continue to monitor Status: Chronic (10) Prophylactic measure Assessment & Plan: * Pepcid 20 mg PEG daily * Lovenox 40mg SC daily * SCDs and offloading boots * continue to turn and reposition q2hrs * Continue to monitor medication administrations and clinical presentation weekly labs. 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 Per case management, unable to place patient. No changes at this time. Case discussed with Dr. Palmira Melendez Carola PGY1
[2018-02-26] MEDS: Enoxaparin 40 mg Syringe SC SCH (11:02)
[2018-02-26] MEDS: levETIRAcetam 100 mg/ml (5ml) Oral Syringe PEG SCH ×2 (11:04→18:03)
[2018-02-27] MEDS: Enoxaparin 40 mg Syringe SC SCH (09:46)
[2018-02-27] MEDS: levETIRAcetam 100 mg/ml (5ml) Oral Syringe PEG SCH ×2 (09:46→17:47)
[2018-02-27] MEDS: Rosuvastatin Calcium 2.5 mg Tab PEG SCH (22:00)
[2018-02-28] MEDS: levETIRAcetam 100 mg/ml (5ml) Oral Syringe PEG SCH ×2 (10:02→17:29)
[2018-02-28] MEDS: Enoxaparin 40 mg Syringe SC SCH (10:15)
[2018-02-28] MEDS: Rosuvastatin Calcium 2.5 mg Tab PEG SCH (21:29)
[2018-03-01 06:27] LABS: BASO # 0.1 K/uL (0.0-0.2); BASO % 0.8 % (0.0-2.0); EOS # 0.2 K/uL (0.0-0.7); EOS % 2.8 % (0.0-4.0); HEMOGLOBIN 12.4 g/dL (12.0-18.0); LYMPH % 24.1 % (20.0-40.0); MEAN CELL VOLUME 88.8 fL (80.0-94.0); MEAN CORPUSCULAR HEMOGLOBIN 29.4 pg (27.0-31.0); MEAN CORPUSCULAR HGB CONC 33.1 g/dL (33.0-37.0); MEAN PLATELET VOLUME 9.6 fL (7.2-11.7); MONO # 0.7 K/uL (0.0-0.8); MONO % 8.3 % (0.0-10.0); NEUT # 5.2 K/uL (1.8-7.0); RBC 4.22 Mil/uL (4.40-5.90); RED CELL DISTRIBUTION WIDTH 15.2 % (11.5-14.5); WHITE BLOOD COUNT 8.2 K/uL (4.8-10.8)
[2018-03-01 06:44] LABS: ALB/GLOB RATIO 0.8 (1.0-2.1); ALBUMIN 3.6 g/dL (3.5-5.0); ALT/SGPT 32 U/L (21-72); AST/SGOT 18 U/L (17-59); BLOOD UREA NITROGEN 12 mg/dL (9-20); CALCIUM 8.7 mg/dl (8.6-10.4); GFR NON-AFRICAN AMERICAN > 60
[2018-03-01] MEDS: levETIRAcetam 100 mg/ml (5ml) Oral Syringe PEG SCH ×2 (09:06→17:13)
[2018-03-01] MEDS: Enoxaparin 40 mg Syringe SC SCH (09:07)
--- NOTE | 2018-03-01 14:50 | CP.PCM.PN ---
<Judith Martinez - Last Filed: 03/01/18 14:48> Subjective - Date & Time of Evaluation Date of Evaluation: 03/01/18 Time of Evaluation: 07:45 - Subjective Subjective: Patient seen and examined at bedside. Patient's PEG tube was clogged overnight and patient cannot receive any of his meds or feeds via the tube, per nursing. Unable to obtain ROS due to anoxic brain injury. Objective - Vital Signs/Intake and Output Vital Signs (last 24 hours): Temp Pulse Resp BP Pulse Ox 98.2 F 74 20 120/73 99 03/01/18 07:34 03/01/18 07:34 03/01/18 07:34 03/01/18 07:34 03/01/18 07:34 Intake and Output: 03/01/18 03/01/18 06:59 18:59 Intake Total 860 1720 Output Total 1000 Balance 860 720 - Medications Medications: Current Medications Aspirin (Aspirin Chewable) 81 mg PEG DAILY [facility] Last Admin: 03/01/18 09:06 Dose: 81 mg Carvedilol (Coreg) 3.125 mg PEG BID [facility] Last Admin: 03/01/18 09:07 Dose: 3.125 mg Enoxaparin Sodium (Lovenox) 40 mg SC DAILY [facility] Last Admin: 03/01/18 09:07 Dose: 40 mg Famotidine (Pepcid) 20 mg PEG DAILY [facility] Last Admin: 03/01/18 09:06 Dose: 20 mg Finasteride (Proscar) 5 mg PO DAILY [facility] Last Admin: 03/01/18 09:06 Dose: 5 mg Levetiracetam (Keppra) 500 mg PEG BID [facility] Last Admin: 03/01/18 09:06 Dose: 500 mg Rosuvastatin Calcium (Crestor) 2.5 mg PEG HS [facility] Last Admin: 02/28/18 21:29 Dose: 2.5 mg Scopolamine (Transderm-Scop) 1 patch TD Q3D [facility] Last Admin: 02/27/18 09:47 Dose: 1 patch Tamsulosin HCl (Flomax) 0.4 mg PEG DAILY [facility] Last Admin: 03/01/18 09:06 Dose: 0.4 mg - Labs Labs: 03/01/18 06:18 03/01/18 06:18 PT 10.6 SECONDS (9.7-12.2) 11/24/15 14:10 INR 1.0 11/24/15 14:10 APTT 25 SECONDS (21-34) 11/24/15 14:10 - Additional Findings Additional findings: - Head Exam Head Exam: ATRAUMATIC, NORMAL INSPECTION - Eye Exam Eye Exam: absent: EOMI, Normal appearance - ENT Exam ENT Exam: Mucous Membranes Moist - Neck Exam Additional comments: Tracheostomy in place - Respiratory Exam Respiratory Exam:Rhonchi. absent: Clear to Ausculation Bilateral (excessive mucous production), Respiratory Distress - Cardiovascular Exam Cardiovascular Exam: REGULAR RHYTHM, +S1, +S2 - GI/Abdominal Exam GI & Abdominal Exam: Distended, Soft, Hypoactive Bowel Sounds. absent: Firm, Mass Additional comments: PEG in place without erythema or swelling of surrounding skin - Extremities Exam Extremities Exam: absent: Pedal Edema - Neurological Exam Neurological Exam: Altered. absent: Alert, Awake, Oriented x3 - Psychiatric Exam Psychiatric exam: Altered (Patient is non-verbal from anoxic brain injury sustained on 05/2015). absent: Normal Affect, Normal Mood - Skin Skin Exam: Dry, Intact, Warm. Assessment and Plan - Assessment and Plan (Free Text) Plan: (1) Anoxic encephalopathy Assessment & Plan: * s/p cardiac arrest in 05/2015 * no acute changes in mental status. * Pt has non spontaneous movements. * patient is currently on 45cc/hr on tube feedings * via PEG * Aspirin 81mg daily * Keppra 500mg bid Status: Chronic (2) Acute Respiratory failure Assessment & Plan: * Trach in place, continue daily monitoring for secretions. No change in management at this time. * Continue with aggressive suctioning multiple times a day per respiratory therapist if secretions are thickened * Scopolamine 1 patch TD Q3D [facility] * Most recent chest xray: * 09/28/17: no active disease. No significant interval change compared to. Status: Resolved (3) History of Recurrent UTIs Assessment & Plan: * ID consult: Dr. Armstrong --> help appreciated * Patient is afebrile, no apparent leukocytosis * Patient is off IV abx since 08/05/17 * patient has condom catheter and Bladder scan PRN to prevent urinary retention Status: Acute (4) History of Urinary retention Assessment & Plan: * Tamsulosin 0.4mg daily * Finasteride 5 mg daily * Bladder scan up to 3x a week to monitor residual urine * patient has had history of recurrent UTIs Status: Chronic (5) Hypokalemia Assessment & Plan: * Monitor and replete Status: Acute (6) History of Sacral ulcer Assessment & Plan: * Healed * Cont with offloading/cushioning/turning * Continue frequent turning, protective ointment and skin checks. Status: Resolved (7) History of coronary artery disease Assessment & Plan: * s/p cardiac stents on 06/13/15 * Cont ASA 81mg via PEG daily * Cont Coreg 3.125mg PEG BID * Rosuvastatin 2.5mg PO HS Status: Acute (8) History of Seizures Assessment & Plan: * Continue Keppra 500mg PEG BID for seizure prophylaxis * Monitor for activity Status: Chronic (9) Lower extremity edema Assessment & Plan: * Improved * SCDs in place * Pressure ulcer boots on b/l * Continue to monitor Status: Chronic (10) Prophylactic measure Assessment & Plan: * Pepcid 20 mg PEG daily * Lovenox 40mg SC daily * SCDs and offloading boots * continue to turn and reposition q2hrs * Continue to monitor medication administrations and clinical presentation weekly labs. 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 Per case management, unable to place patient. No changes at this time. <Jeison Moore - Last Filed: 03/03/18 17:34> Objective - Vital Signs/Intake and Output Vital Signs (last 24 hours): Temp Pulse Resp BP Pulse Ox 98 F 73 20 124/78 100 03/03/18 07:09 03/03/18 10:05 03/03/18 07:09 03/03/18 10:05 03/03/18 07:09 Intake and Output: 03/03/18 03/03/18 06:59 18:59 Intake Total 1660 890 Output Total 950 Balance 710 890 - Medications Medications: Current Medications Aspirin (Aspirin Chewable) 81 mg PEG DAILY [facility] Last Admin: 03/03/18 10:14 Dose: 81 mg Carvedilol (Coreg) 3.125 mg PEG BID [facility] Last Admin: 03/03/18 17:22 Dose: 3.125 mg Enoxaparin Sodium (Lovenox) 40 mg SC DAILY [facility] Last Admin: 03/03/18 10:14 Dose: 40 mg Famotidine (Pepcid) 20 mg PEG DAILY [facility] Last Admin: 03/03/18 10:14 Dose: 20 mg Finasteride (Proscar) 5 mg PO DAILY [facility] Last Admin: 03/03/18 10:14 Dose: 5 mg Levetiracetam (Keppra) 500 mg PEG BID [facility] Last Admin: 03/03/18 17:22 Dose: 500 mg Rosuvastatin Calcium (Crestor) 2.5 mg PEG HS [facility] Last Admin: 03/02/18 22:55 Dose: 2.5 mg Scopolamine (Transderm-Scop) 1 patch TD Q3D [facility] Last Admin: 03/02/18 09:26 Dose: 1 patch Tamsulosin HCl (Flomax) 0.4 mg PEG DAILY [facility] Last Admin: 03/03/18 10:14 Dose: 0.4 mg - Labs Labs: 03/01/18 06:18 03/01/18 06:18 PT 10.6 SECONDS (9.7-12.2) 11/24/15 14:10 INR 1.0 11/24/15 14:10 APTT 25 SECONDS (21-34) 11/24/15 14:10 Attending/Attestation - Attestation I have personally seen and examined this patient.: No I have fully participated in the care of the patient.: Yes I have reviewed all pertinent clinical information, including history, physical exam and plan: Yes
[2018-03-01] MEDS: Rosuvastatin Calcium 2.5 mg Tab PEG SCH (21:24)
[2018-03-02] MEDS: Enoxaparin 40 mg Syringe SC SCH (09:26)
[2018-03-02] MEDS: levETIRAcetam 100 mg/ml (5ml) Oral Syringe PEG SCH ×2 (09:26→17:47)
[2018-03-02] MEDS: Rosuvastatin Calcium 2.5 mg Tab PEG SCH ×2 (22:54→22:55)
[2018-03-03] MEDS: Enoxaparin 40 mg Syringe SC SCH (10:14)
[2018-03-03] MEDS: levETIRAcetam 100 mg/ml (5ml) Oral Syringe PEG SCH ×2 (10:14→17:22)
--- NOTE | 2018-03-03 14:05 | CP.PCM.PN ---
Addendum entered and electronically signed by Judith Martinez DO 03/04/18 13: 57: correction: PEG tube not clogged and patient receiving medications through it without issue. Original Note: <Judith Martinez - Last Filed: 03/03/18 14:03> Subjective - Date & Time of Evaluation Date of Evaluation: 03/03/18 Time of Evaluation: 07:30 - Subjective Subjective: Patient seen and examined at bedside. Patient's PEG tube was clogged overnight and patient cannot receive any of his meds or feeds via the tube, per nursing. Unable to obtain ROS due to anoxic brain injury. Objective - Vital Signs/Intake and Output Vital Signs (last 24 hours): Temp Pulse Resp BP Pulse Ox 98 F 67 20 111/75 100 03/03/18 07:09 03/03/18 07:09 03/03/18 07:09 03/03/18 07:09 03/03/18 07:09 Intake and Output: 03/03/18 03/03/18 06:59 18:59 Intake Total 1660 Output Total 950 Balance 710 - Medications Medications: Current Medications Aspirin (Aspirin Chewable) 81 mg PEG DAILY [facility] Last Admin: 03/03/18 10:14 Dose: 81 mg Carvedilol (Coreg) 3.125 mg PEG BID [facility] Last Admin: 03/03/18 10:14 Dose: 3.125 mg Enoxaparin Sodium (Lovenox) 40 mg SC DAILY [facility] Last Admin: 03/03/18 10:14 Dose: 40 mg Famotidine (Pepcid) 20 mg PEG DAILY [facility] Last Admin: 03/03/18 10:14 Dose: 20 mg Finasteride (Proscar) 5 mg PO DAILY [facility] Last Admin: 03/03/18 10:14 Dose: 5 mg Levetiracetam (Keppra) 500 mg PEG BID [facility] Last Admin: 03/03/18 10:14 Dose: 500 mg Rosuvastatin Calcium (Crestor) 2.5 mg PEG HS [facility] Last Admin: 03/02/18 22:55 Dose: 2.5 mg Scopolamine (Transderm-Scop) 1 patch TD Q3D [facility] Last Admin: 03/02/18 09:26 Dose: 1 patch Tamsulosin HCl (Flomax) 0.4 mg PEG DAILY [facility] Last Admin: 03/03/18 10:14 Dose: 0.4 mg - Labs Labs: 03/01/18 06:18 03/01/18 06:18 PT 10.6 SECONDS (9.7-12.2) 11/24/15 14:10 INR 1.0 11/24/15 14:10 APTT 25 SECONDS (21-34) 11/24/15 14:10 - Additional Findings Additional findings: - Head Exam Head Exam: ATRAUMATIC, NORMAL INSPECTION - Eye Exam Eye Exam: absent: EOMI, Normal appearance - ENT Exam ENT Exam: Mucous Membranes Moist - Neck Exam Additional comments: Tracheostomy in place - Respiratory Exam Respiratory Exam:Rhonchi. absent: Clear to Ausculation Bilateral (excessive mucous production), Respiratory Distress - Cardiovascular Exam Cardiovascular Exam: REGULAR RHYTHM, +S1, +S2 - GI/Abdominal Exam GI & Abdominal Exam: Distended, Soft, Hypoactive Bowel Sounds. absent: Firm, Mass Additional comments: PEG in place without erythema or swelling of surrounding skin - Extremities Exam Extremities Exam: absent: Pedal Edema - Neurological Exam Neurological Exam: Altered. absent: Alert, Awake, Oriented x3 - Psychiatric Exam Psychiatric exam: Altered (Patient is non-verbal from anoxic brain injury sustained on 05/2015). absent: Normal Affect, Normal Mood - Skin Skin Exam: Dry, Intact, Warm. Assessment and Plan - Assessment and Plan (Free Text) Plan: (1) Anoxic encephalopathy Assessment & Plan: * s/p cardiac arrest in 05/2015 * no acute changes in mental status. * Pt has non spontaneous movements. * patient is currently on 45cc/hr on tube feedings * via PEG * Aspirin 81mg daily * Keppra 500mg bid Status: Chronic (2) Acute Respiratory failure Assessment & Plan: * Trach in place, continue daily monitoring for secretions. No change in management at this time. * Continue with aggressive suctioning multiple times a day per respiratory therapist if secretions are thickened * Scopolamine 1 patch TD Q3D [facility] * Most recent chest xray: * 09/28/17: no active disease. No significant interval change compared to. Status: Resolved (3) History of Recurrent UTIs Assessment & Plan: * ID consult: Dr. Armstrong --> help appreciated * Patient is afebrile, no apparent leukocytosis * Patient is off IV abx since 08/05/17 * patient has condom catheter and Bladder scan PRN to prevent urinary retention Status: Acute (4) History of Urinary retention Assessment & Plan: * Tamsulosin 0.4mg daily * Finasteride 5 mg daily * Bladder scan up to 3x a week to monitor residual urine * patient has had history of recurrent UTIs Status: Chronic (5) Hypokalemia Assessment & Plan: * Monitor and replete Status: Acute (6) History of Sacral ulcer Assessment & Plan: * Healed * Cont with offloading/cushioning/turning * Continue frequent turning, protective ointment and skin checks. Status: Resolved (7) History of coronary artery disease Assessment & Plan: * s/p cardiac stents on 06/13/15 * Cont ASA 81mg via PEG daily * Cont Coreg 3.125mg PEG BID * Rosuvastatin 2.5mg PO HS Status: Acute (8) History of Seizures Assessment & Plan: * Continue Keppra 500mg PEG BID for seizure prophylaxis * Monitor for activity Status: Chronic (9) Lower extremity edema Assessment & Plan: * Improved * SCDs in place * Pressure ulcer boots on b/l * Continue to monitor Status: Chronic (10) Prophylactic measure Assessment & Plan: * Pepcid 20 mg PEG daily * Lovenox 40mg SC daily * SCDs and offloading boots * continue to turn and reposition q2hrs * Continue to monitor medication administrations and clinical presentation weekly labs. 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 Per case management, unable to place patient. No changes at this time. <Jeison Moore - Last Filed: 03/06/18 11:48> Objective - Vital Signs/Intake and Output Vital Signs (last 24 hours): Temp Pulse Resp BP Pulse Ox 98 F 73 20 124/78 100 03/03/18 07:09 03/03/18 10:05 03/03/18 07:09 03/03/18 10:05 03/03/18 07:09 Intake and Output: 03/03/18 03/03/18 06:59 18:59 Intake Total 1660 890 Output Total 950 Balance 710 890 - Medications Medications: Current Medications Aspirin (Aspirin Chewable) 81 mg PEG DAILY [facility] Last Admin: 03/03/18 10:14 Dose: 81 mg Carvedilol (Coreg) 3.125 mg PEG BID [facility] Last Admin: 03/03/18 17:22 Dose: 3.125 mg Enoxaparin Sodium (Lovenox) 40 mg SC DAILY [facility] Last Admin: 03/03/18 10:14 Dose: 40 mg Famotidine (Pepcid) 20 mg PEG DAILY [facility] Last Admin: 03/03/18 10:14 Dose: 20 mg Finasteride (Proscar) 5 mg PO DAILY [facility] Last Admin: 03/03/18 10:14 Dose: 5 mg Levetiracetam (Keppra) 500 mg PEG BID [facility] Last Admin: 03/03/18 17:22 Dose: 500 mg Rosuvastatin Calcium (Crestor) 2.5 mg PEG HS [facility] Last Admin: 03/02/18 22:55 Dose: 2.5 mg Scopolamine (Transderm-Scop) 1 patch TD Q3D [facility] Last Admin: 03/02/18 09:26 Dose: 1 patch Tamsulosin HCl (Flomax) 0.4 mg PEG DAILY [facility] Last Admin: 03/03/18 10:14 Dose: 0.4 mg - Labs Labs: 03/01/18 06:18 03/01/18 06:18 PT 10.6 SECONDS (9.7-12.2) 11/24/15 14:10 INR 1.0 11/24/15 14:10 APTT 25 SECONDS (21-34) 11/24/15 14:10 Attending/Attestation - Attestation I have personally seen and examined this patient.: Yes I have fully participated in the care of the patient.: Yes I have reviewed all pertinent clinical information, including history, physical exam and plan: Yes Notes (Text): No changes Seen and examined by me.Continue same management d/w The resident. I agree with the documentation of the resident's assessment and the plan
[2018-03-03] MEDS: Rosuvastatin Calcium 2.5 mg Tab PEG SCH (21:19)
[2018-03-04] MEDS: levETIRAcetam 100 mg/ml (5ml) Oral Syringe PEG SCH ×2 (10:31→17:54)
[2018-03-04] MEDS: Enoxaparin 40 mg Syringe SC SCH (10:32)
[2018-03-04] MEDS: Rosuvastatin Calcium 2.5 mg Tab PEG SCH (21:27)
--- NOTE | 2018-03-05 10:35 | CP.PCM.PN ---
<Judith Martinez - Last Filed: 03/05/18 10:34> Subjective - Date & Time of Evaluation Date of Evaluation: 03/05/18 Time of Evaluation: 07:00 - Subjective Subjective: Patient seen and examined at bedside this morning. No acute events overnight. Patient is non-verbal due to anoxic brain injury suffered in 2014. ROS is unattainable. Objective - Vital Signs/Intake and Output Vital Signs (last 24 hours): Temp Pulse Resp BP Pulse Ox 98.3 F 72 20 103/72 98 03/05/18 00:00 03/05/18 00:00 03/05/18 00:00 03/05/18 00:00 03/05/18 00:00 Intake and Output: 03/05/18 03/05/18 06:59 18:59 Intake Total 1720 Output Total 600 Balance 1120 - Medications Medications: Current Medications Aspirin (Aspirin Chewable) 81 mg PEG DAILY [facility] Last Admin: 03/04/18 10:28 Dose: 81 mg Carvedilol (Coreg) 3.125 mg PEG BID [facility] Last Admin: 03/04/18 17:54 Dose: 3.125 mg Enoxaparin Sodium (Lovenox) 40 mg SC DAILY [facility] Last Admin: 03/04/18 10:32 Dose: 40 mg Famotidine (Pepcid) 20 mg PEG DAILY [facility] Last Admin: 03/04/18 10:32 Dose: 20 mg Finasteride (Proscar) 5 mg PO DAILY [facility] Last Admin: 03/04/18 10:33 Dose: 5 mg Levetiracetam (Keppra) 500 mg PEG BID [facility] Last Admin: 03/04/18 17:54 Dose: 500 mg Rosuvastatin Calcium (Crestor) 2.5 mg PEG HS [facility] Last Admin: 03/04/18 21:27 Dose: 2.5 mg Scopolamine (Transderm-Scop) 1 patch TD Q3D [facility] Last Admin: 03/02/18 09:26 Dose: 1 patch Tamsulosin HCl (Flomax) 0.4 mg PEG DAILY [facility] Last Admin: 03/04/18 10:30 Dose: 0.4 mg - Labs Labs: 03/01/18 06:18 03/01/18 06:18 PT 10.6 SECONDS (9.7-12.2) 11/24/15 14:10 INR 1.0 11/24/15 14:10 APTT 25 SECONDS (21-34) 11/24/15 14:10 - Additional Findings Additional findings: - Constitutional Appears: Chronically Ill - Head Exam Head Exam: ATRAUMATIC, NORMOCEPHALIC - Eye Exam Eye Exam: absent: EOMI, Scleral icterus - ENT Exam ENT Exam: Mucous Membranes Moist - Neck Exam Additional comments: Trach in place. - Respiratory Exam Respiratory Exam: Clear to Ausculation Bilateral, NORMAL BREATHING PATTERN. absent: Chest Wall Tenderness, Rales, Rhonchi, Wheezes, Respiratory Distress - Cardiovascular Exam Cardiovascular Exam: REGULAR RHYTHM, +S1, +S2 - GI/Abdominal Exam GI & Abdominal Exam: Distended, Soft, Hypoactive Bowel Sounds. absent: Firm, Guarding, Rigid, Tenderness Additional comments: PEG in place without erythema or swelling of surrounding skin - Extremities Exam Extremities Exam: absent: Calf Tenderness, Pedal Edema - Neurological Exam Neurological Exam: Altered. absent: Alert, Awake, Oriented x3, Reflexes Normal (no threat reflex) - Psychiatric Exam Psychiatric exam: absent: Normal Affect (Patient is non-verbal from anoxic brain injury sustained on 05/2015) - Skin Skin Exam: Dry, Warm Assessment and Plan - Assessment and Plan (Free Text) Plan: (1) Anoxic encephalopathy Assessment & Plan: * s/p cardiac arrest in 05/2015 * no acute changes in mental status. * Pt has non spontaneous movements. * patient is currently on 45cc/hr on tube feedings * via PEG * Aspirin 81mg daily * Keppra 500mg bid Status: Chronic (2) Acute Respiratory failure Assessment & Plan: * Trach in place, continue daily monitoring for secretions. No change in management at this time. * Continue with aggressive suctioning multiple times a day per respiratory therapist if secretions are thickened * Scopolamine 1 patch TD Q3D JOO * Most recent chest xray: * 09/28/17: no active disease. No significant interval change compared to. Status: Resolved (3) History of Recurrent UTIs Assessment & Plan: * ID consult: Dr. Armstrong --> help appreciated * Patient is afebrile, no apparent leukocytosis * Patient is off IV abx since 08/05/17 * patient has condom catheter and Bladder scan PRN to prevent urinary retention Status: Acute (4) History of Urinary retention Assessment & Plan: * Tamsulosin 0.4mg daily * Finasteride 5 mg daily * Bladder scan up to 3x a week to monitor residual urine * patient has had history of recurrent UTIs Status: Chronic (5) Hypokalemia Assessment & Plan: * Monitor and replete Status: Acute (6) History of Sacral ulcer Assessment & Plan: * Healed * Cont with offloading/cushioning/turning * Continue frequent turning, protective ointment and skin checks. Status: Resolved (7) History of coronary artery disease Assessment & Plan: * s/p cardiac stents on 06/13/15 * Cont ASA 81mg via PEG daily * Cont Coreg 3.125mg PEG BID * Rosuvastatin 2.5mg PO HS Status: Acute (8) History of Seizures Assessment & Plan: * Continue Keppra 500mg PEG BID for seizure prophylaxis * Monitor for activity Status: Chronic (9) Lower extremity edema Assessment & Plan: * Improved * SCDs in place * Pressure ulcer boots on b/l * Continue to monitor Status: Chronic (10) Prophylactic measure Assessment & Plan: * Pepcid 20 mg PEG daily * Lovenox 40mg SC daily * SCDs and offloading boots * continue to turn and reposition q2hrs * Continue to monitor medication administrations and clinical presentation weekly labs. 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 Per case management, unable to place patient. Will have wound care see for possible sacral ulcer per nursing. <Jeison Moore - Last Filed: 03/06/18 11:55> Objective - Vital Signs/Intake and Output Vital Signs (last 24 hours): Temp Pulse Resp BP Pulse Ox 97.4 F L 69 20 108/72 98 03/05/18 23:35 03/05/18 23:35 03/05/18 23:35 03/05/18 23:35 03/05/18 23:35 Intake and Output: 03/06/18 03/06/18 06:59 18:59 Intake Total 860 Output Total 750 Balance 110 - Medications Medications: Current Medications Aspirin (Aspirin Chewable) 81 mg PEG DAILY [facility] Last Admin: 03/06/18 10:37 Dose: 81 mg Carvedilol (Coreg) 3.125 mg PEG BID [facility] Last Admin: 03/06/18 10:41 Dose: 3.125 mg Famotidine (Pepcid) 20 mg PEG DAILY [facility] Last Admin: 03/06/18 10:38 Dose: 20 mg Finasteride (Proscar) 5 mg PO DAILY [facility] Last Admin: 03/06/18 10:38 Dose: 5 mg Heparin Sodium (Porcine) (Heparin) 5,000 units SC Q12 [facility] Last Admin: 03/06/18 10:37 Dose: 5,000 units Levetiracetam (Keppra) 500 mg PEG BID [facility] Last Admin: 03/06/18 10:38 Dose: 500 mg Rosuvastatin Calcium (Crestor) 2.5 mg PEG HS [facility] Last Admin: 03/05/18 21:20 Dose: 2.5 mg Scopolamine (Transderm-Scop) 1 patch TD Q3D [facility] Last Admin: 03/05/18 10:58 Dose: 1 patch Tamsulosin HCl (Flomax) 0.4 mg PEG DAILY [facility] Last Admin: 03/06/18 10:37 Dose: 0.4 mg - Labs Labs: 03/01/18 06:18 03/01/18 06:18 PT 10.6 SECONDS (9.7-12.2) 11/24/15 14:10 INR 1.0 11/24/15 14:10 APTT 25 SECONDS (21-34) 11/24/15 14:10 Attending/Attestation - Attestation I have personally seen and examined this patient.: No I have fully participated in the care of the patient.: Yes I have reviewed all pertinent clinical information, including history, physical exam and plan: Yes
[2018-03-05] MEDS: Enoxaparin 40 mg Syringe SC SCH (10:53)
[2018-03-05] MEDS: levETIRAcetam 100 mg/ml (5ml) Oral Syringe PEG SCH ×2 (10:54→17:19)
[2018-03-05] MEDS: Rosuvastatin Calcium 2.5 mg Tab PEG SCH (21:20)
[2018-03-06] MEDS: levETIRAcetam 100 mg/ml (5ml) Oral Syringe PEG SCH ×2 (10:38→17:18)
[2018-03-06] MEDS: Rosuvastatin Calcium 2.5 mg Tab PEG SCH (21:35)
[2018-03-07] MEDS: levETIRAcetam 100 mg/ml (5ml) Oral Syringe PEG SCH ×2 (10:32→18:19)
[2018-03-07] MEDS: Rosuvastatin Calcium 2.5 mg Tab PEG SCH (21:15)
[2018-03-08 07:05] LABS: BASO # 0.1 K/uL (0.0-0.2); BASO % 0.6 % (0.0-2.0); EOS # 0.2 K/uL (0.0-0.7); EOS % 2.8 % (0.0-4.0); HEMOGLOBIN 12.3 g/dL (12.0-18.0); LYMPH # 2.2 K/uL (1.0-4.3); LYMPH % 25.6 % (20.0-40.0); MEAN CELL VOLUME 88.4 fL (80.0-94.0); MEAN CORPUSCULAR HEMOGLOBIN 29.3 pg (27.0-31.0); MEAN CORPUSCULAR HGB CONC 33.2 g/dL (33.0-37.0); MEAN PLATELET VOLUME 9.1 fL (7.2-11.7); MONO # 0.8 K/uL (0.0-0.8); MONO % 9.6 % (0.0-10.0); NEUT # 5.4 K/uL (1.8-7.0); NEUT % 61.4 % (50.0-75.0); RBC 4.21 Mil/uL (4.40-5.90); RED CELL DISTRIBUTION WIDTH 15.1 % (11.5-14.5); WHITE BLOOD COUNT 8.8 K/uL (4.8-10.8)
[2018-03-08 07:45] LABS: ALB/GLOB RATIO 0.8 (1.0-2.1); ALBUMIN 3.5 g/dL (3.5-5.0); ALT/SGPT 25 U/L (21-72); AST/SGOT 19 U/L (17-59); BLOOD UREA NITROGEN 12 mg/dL (9-20); CALCIUM 8.7 mg/dl (8.6-10.4); GFR NON-AFRICAN AMERICAN > 60
--- NOTE | 2018-03-08 09:08 | CP.PCM.PN ---
<Judith Martinez - Last Filed: 03/08/18 09:07> Subjective - Date & Time of Evaluation Date of Evaluation: 03/08/18 Time of Evaluation: 09:07 - Subjective Subjective: Patient seen and examined at bedside this morning. No acute events overnight. Patient is non-verbal due to anoxic brain injury suffered in 2014. ROS is unattainable. Objective - Vital Signs/Intake and Output Vital Signs (last 24 hours): Temp Pulse Resp BP Pulse Ox 97.8 F 77 20 111/76 99 03/08/18 07:45 03/08/18 07:45 03/08/18 07:45 03/08/18 07:45 03/08/18 07:45 Intake and Output: 03/08/18 03/08/18 06:59 18:59 Intake Total 860 Output Total 1300 Balance -440 - Medications Medications: Current Medications Aspirin (Aspirin Chewable) 81 mg PEG DAILY [facility] Last Admin: 03/07/18 10:32 Dose: 81 mg Carvedilol (Coreg) 3.125 mg PEG BID [facility] Last Admin: 03/07/18 18:18 Dose: 3.125 mg Famotidine (Pepcid) 20 mg PEG DAILY [facility] Last Admin: 03/07/18 10:32 Dose: 20 mg Finasteride (Proscar) 5 mg PO DAILY [facility] Last Admin: 03/07/18 10:32 Dose: 5 mg Heparin Sodium (Porcine) (Heparin) 5,000 units SC Q12 [facility] Last Admin: 03/07/18 21:15 Dose: 5,000 units Levetiracetam (Keppra) 500 mg PEG BID [facility] Last Admin: 03/07/18 18:19 Dose: 500 mg Rosuvastatin Calcium (Crestor) 2.5 mg PEG HS [facility] Last Admin: 03/07/18 21:15 Dose: 2.5 mg Scopolamine (Transderm-Scop) 1 patch TD Q3D [facility] Last Admin: 03/05/18 10:58 Dose: 1 patch Tamsulosin HCl (Flomax) 0.4 mg PEG DAILY [facility] Last Admin: 03/07/18 10:32 Dose: 0.4 mg - Labs Labs: 03/08/18 06:56 03/08/18 06:56 PT 10.6 SECONDS (9.7-12.2) 11/24/15 14:10 INR 1.0 11/24/15 14:10 APTT 25 SECONDS (21-34) 11/24/15 14:10 - Additional Findings Additional findings: - Constitutional Appears: Chronically Ill - Head Exam Head Exam: ATRAUMATIC, NORMOCEPHALIC - Eye Exam Eye Exam: absent: EOMI, Scleral icterus - ENT Exam ENT Exam: Mucous Membranes Moist - Neck Exam Additional comments: Trach in place. - Respiratory Exam Respiratory Exam: Clear to Ausculation Bilateral, NORMAL BREATHING PATTERN. absent: Chest Wall Tenderness, Rales, Rhonchi, Wheezes, Respiratory Distress - Cardiovascular Exam Cardiovascular Exam: REGULAR RHYTHM, +S1, +S2 - GI/Abdominal Exam GI & Abdominal Exam: Distended, Soft, Hypoactive Bowel Sounds. absent: Firm, Guarding, Rigid, Tenderness Additional comments: PEG in place without erythema or swelling of surrounding skin - Extremities Exam Extremities Exam: absent: Calf Tenderness, Pedal Edema - Neurological Exam Neurological Exam: Altered. absent: Alert, Awake, Oriented x3, Reflexes Normal (no threat reflex) - Psychiatric Exam Psychiatric exam: absent: Normal Affect (Patient is non-verbal from anoxic brain injury sustained on 05/2015) Assessment and Plan - Assessment and Plan (Free Text) Plan: (1) Anoxic encephalopathy Assessment & Plan: * s/p cardiac arrest in 05/2015 * no acute changes in mental status. * Pt has non spontaneous movements. * patient is currently on 45cc/hr on tube feedings * via PEG * Aspirin 81mg daily * Keppra 500mg bid Status: Chronic (2) Acute Respiratory failure Assessment & Plan: * Trach in place, continue daily monitoring for secretions. No change in management at this time. * Continue with aggressive suctioning multiple times a day per respiratory therapist if secretions are thickened * Scopolamine 1 patch TD Q3D JOO * Most recent chest xray: * 09/28/17: no active disease. No significant interval change compared to. Status: Resolved (3) History of Recurrent UTIs Assessment & Plan: * ID consult: Dr. Armstrong --> help appreciated * Patient is afebrile, no apparent leukocytosis * Patient is off IV abx since 08/05/17 * patient has condom catheter and Bladder scan PRN to prevent urinary retention Status: Acute (4) History of Urinary retention Assessment & Plan: * Tamsulosin 0.4mg daily * Finasteride 5 mg daily * Bladder scan up to 3x a week to monitor residual urine * patient has had history of recurrent UTIs Status: Chronic (5) Hypokalemia Assessment & Plan: * Monitor and replete Status: Acute (6) History of Sacral ulcer Assessment & Plan: * Healed * Cont with offloading/cushioning/turning * Continue frequent turning, protective ointment and skin checks. Status: Resolved (7) History of coronary artery disease Assessment & Plan: * s/p cardiac stents on 06/13/15 * Cont ASA 81mg via PEG daily * Cont Coreg 3.125mg PEG BID * Rosuvastatin 2.5mg PO HS Status: Acute (8) History of Seizures Assessment & Plan: * Continue Keppra 500mg PEG BID for seizure prophylaxis * Monitor for activity Status: Chronic (9) Lower extremity edema Assessment & Plan: * Improved * SCDs in place * Pressure ulcer boots on b/l * Continue to monitor Status: Chronic (10) Prophylactic measure Assessment & Plan: * Pepcid 20 mg PEG daily * Lovenox 40mg SC daily * SCDs and offloading boots * continue to turn and reposition q2hrs * Continue to monitor medication administrations and clinical presentation weekly labs. 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 Per case management, unable to place patient. Will have wound care see for possible sacral ulcer per nursing. <Amandeep Chavis - Last Filed: 03/08/18 13:37> Objective - Vital Signs/Intake and Output Vital Signs (last 24 hours): Temp Pulse Resp BP Pulse Ox 97.8 F 77 20 111/76 99 03/08/18 07:45 03/08/18 07:45 03/08/18 07:45 03/08/18 07:45 03/08/18 07:45 Intake and Output: 03/08/18 03/08/18 06:59 18:59 Intake Total 860 Output Total 1300 Balance -440 - Medications Medications: Current Medications Aspirin (Aspirin Chewable) 81 mg PEG DAILY [facility] Last Admin: 03/08/18 10:34 Dose: 81 mg Carvedilol (Coreg) 3.125 mg PEG BID [facility] Last Admin: 03/08/18 10:34 Dose: 3.125 mg Famotidine (Pepcid) 20 mg PEG DAILY [facility] Last Admin: 03/08/18 10:34 Dose: 20 mg Finasteride (Proscar) 5 mg PO DAILY [facility] Last Admin: 03/08/18 10:34 Dose: 5 mg Heparin Sodium (Porcine) (Heparin) 5,000 units SC Q12 [facility] Last Admin: 03/08/18 10:34 Dose: 5,000 units Levetiracetam (Keppra) 500 mg PEG BID [facility] Last Admin: 03/08/18 10:34 Dose: 500 mg Rosuvastatin Calcium (Crestor) 2.5 mg PEG HS [facility] Last Admin: 03/07/18 21:15 Dose: 2.5 mg Scopolamine (Transderm-Scop) 1 patch TD Q3D [facility] Last Admin: 03/08/18 10:34 Dose: 1 patch Tamsulosin HCl (Flomax) 0.4 mg PEG DAILY [facility] Last Admin: 03/08/18 10:34 Dose: 0.4 mg - Labs Labs: 03/08/18 06:56 03/08/18 06:56 PT 10.6 SECONDS (9.7-12.2) 11/24/15 14:10 INR 1.0 11/24/15 14:10 APTT 25 SECONDS (21-34) 11/24/15 14:10 Assessment and Plan (1) Prophylactic measure Status: Acute (2) Anoxic encephalopathy Status: Chronic (3) STEMI (ST elevation myocardial infarction) Status: Acute (4) Cardiac arrest Status: Acute (5) Seizures Status: Acute (6) Respiratory failure Status: Chronic Attending/Attestation - Attestation I have personally seen and examined this patient.: Yes I have fully participated in the care of the patient.: Yes I have reviewed all pertinent clinical information, including history, physical exam and plan: Yes
[2018-03-08] MEDS: levETIRAcetam 100 mg/ml (5ml) Oral Syringe PEG SCH ×2 (10:34→17:59)
[2018-03-08] MEDS: Rosuvastatin Calcium 2.5 mg Tab PEG SCH (21:11)
[2018-03-09] MEDS: levETIRAcetam 100 mg/ml (5ml) Oral Syringe PEG SCH ×2 (10:08→17:32)
[2018-03-09] MEDS: Rosuvastatin Calcium 2.5 mg Tab PEG SCH (21:04)
--- NOTE | 2018-03-10 06:56 | CP.PCM.PN ---
Subjective - Date & Time of Evaluation Date of Evaluation: 03/10/18 Time of Evaluation: 06:55 - Subjective Subjective: Patient seen and examined at bedside this morning. No acute events overnight. Patient is non-verbal due to anoxic brain injury suffered in 2014. ROS is unattainable. Objective - Vital Signs/Intake and Output Vital Signs (last 24 hours): Temp Pulse Resp BP Pulse Ox 98.0 F 80 20 108/73 97 03/09/18 23:43 03/09/18 23:43 03/09/18 23:43 03/09/18 23:43 03/09/18 23:43 Intake and Output: 03/09/18 03/10/18 18:59 06:59 Intake Total 860 860 Output Total 400 250 Balance 460 610 - Medications Medications: Current Medications Aspirin (Aspirin Chewable) 81 mg PEG DAILY [facility] Last Admin: 03/09/18 10:08 Dose: 81 mg Carvedilol (Coreg) 3.125 mg PEG BID [facility] Last Admin: 03/09/18 17:32 Dose: 3.125 mg Famotidine (Pepcid) 20 mg PEG DAILY [facility] Last Admin: 03/09/18 10:08 Dose: 20 mg Finasteride (Proscar) 5 mg PO DAILY [facility] Last Admin: 03/09/18 10:08 Dose: 5 mg Heparin Sodium (Porcine) (Heparin) 5,000 units SC Q12 [facility] Last Admin: 03/09/18 21:04 Dose: 5,000 units Levetiracetam (Keppra) 500 mg PEG BID [facility] Last Admin: 03/09/18 17:32 Dose: 500 mg Rosuvastatin Calcium (Crestor) 2.5 mg PEG HS [facility] Last Admin: 03/09/18 21:04 Dose: 2.5 mg Scopolamine (Transderm-Scop) 1 patch TD Q3D [facility] Last Admin: 03/08/18 10:34 Dose: 1 patch Tamsulosin HCl (Flomax) 0.4 mg PEG DAILY [facility] Last Admin: 03/09/18 10:08 Dose: 0.4 mg - Labs Labs: 03/08/18 06:56 03/08/18 06:56 PT 10.6 SECONDS (9.7-12.2) 11/24/15 14:10 INR 1.0 11/24/15 14:10 APTT 25 SECONDS (21-34) 11/24/15 14:10 - Additional Findings Additional findings: - Constitutional Appears: Chronically Ill - Head Exam Head Exam: ATRAUMATIC, NORMOCEPHALIC - Eye Exam Eye Exam: absent: EOMI, Scleral icterus - ENT Exam ENT Exam: Mucous Membranes Moist - Neck Exam Additional comments: Trach in place. - Respiratory Exam Respiratory Exam: Clear to Ausculation Bilateral, NORMAL BREATHING PATTERN. absent: Chest Wall Tenderness, Rales, Rhonchi, Wheezes, Respiratory Distress - Cardiovascular Exam Cardiovascular Exam: REGULAR RHYTHM, +S1, +S2 - GI/Abdominal Exam GI & Abdominal Exam: Distended, Soft, Hypoactive Bowel Sounds. absent: Firm, Guarding, Rigid, Tenderness Additional comments: PEG in place without erythema or swelling of surrounding skin - Extremities Exam Extremities Exam: absent: Calf Tenderness, Pedal Edema - Neurological Exam Neurological Exam: Altered. absent: Alert, Awake, Oriented x3, Reflexes Normal (no threat reflex) - Psychiatric Exam Psychiatric exam: absent: Normal Affect (Patient is non-verbal from anoxic brain injury sustained on 05/2015) Assessment and Plan - Assessment and Plan (Free Text) Plan: (1) Anoxic encephalopathy Assessment & Plan: * s/p cardiac arrest in 05/2015 * no acute changes in mental status. * Pt has non spontaneous movements. * patient is currently on 45cc/hr on tube feedings * via PEG * Aspirin 81mg daily * Keppra 500mg bid Status: Chronic (2) Acute Respiratory failure Assessment & Plan: * Trach in place, continue daily monitoring for secretions. No change in management at this time. * Continue with aggressive suctioning multiple times a day per respiratory therapist if secretions are thickened * Scopolamine 1 patch TD Q3D JOO * Most recent chest xray: * 09/28/17: no active disease. No significant interval change compared to. Status: Resolved (3) History of Recurrent UTIs Assessment & Plan: * ID consult: Dr. Armstrong --> help appreciated * Patient is afebrile, no apparent leukocytosis * Patient is off IV abx since 08/05/17 * patient has condom catheter and Bladder scan PRN to prevent urinary retention Status: Acute (4) History of Urinary retention Assessment & Plan: * Tamsulosin 0.4mg daily * Finasteride 5 mg daily * Bladder scan up to 3x a week to monitor residual urine * patient has had history of recurrent UTIs Status: Chronic (5) Hypokalemia Assessment & Plan: * Monitor and replete Status: Acute (6) History of Sacral ulcer Assessment & Plan: * Healed * Cont with offloading/cushioning/turning * Continue frequent turning, protective ointment and skin checks. Status: Resolved (7) History of coronary artery disease Assessment & Plan: * s/p cardiac stents on 06/13/15 * Cont ASA 81mg via PEG daily * Cont Coreg 3.125mg PEG BID * Rosuvastatin 2.5mg PO HS Status: Acute (8) History of Seizures Assessment & Plan: * Continue Keppra 500mg PEG BID for seizure prophylaxis * Monitor for activity Status: Chronic (9) Lower extremity edema Assessment & Plan: * Improved * SCDs in place * Pressure ulcer boots on b/l * Continue to monitor Status: Chronic (10) Prophylactic measure Assessment & Plan: * Pepcid 20 mg PEG daily * Lovenox 40mg SC daily * SCDs and offloading boots * continue to turn and reposition q2hrs * Continue to monitor medication administrations and clinical presentation weekly labs. 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 Per case management, unable to place patient. Will have wound care see for possible sacral ulcer per nursing.
[2018-03-10] MEDS: levETIRAcetam 100 mg/ml (5ml) Oral Syringe PEG SCH ×2 (09:57→17:32)
[2018-03-10] MEDS: Rosuvastatin Calcium 2.5 mg Tab PEG SCH (21:37)
[2018-03-11] MEDS: levETIRAcetam 100 mg/ml (5ml) Oral Syringe PEG SCH ×2 (09:32→17:21)
[2018-03-11] MEDS: Rosuvastatin Calcium 2.5 mg Tab PEG SCH (21:38)
[2018-03-12] MEDS: levETIRAcetam 100 mg/ml (5ml) Oral Syringe PEG SCH ×2 (10:14→17:53)
--- NOTE | 2018-03-12 12:07 | CP.PCM.PCO ---
Physician Communication Note - Physician Communication Note Physician Communication Note: peg tube out, baker cath kept to keep it open. DR Ramirez will see him today.
--- NOTE | 2018-03-12 16:05 | CP.PCM.PN ---
<Judith Martinez - Last Filed: 03/12/18 16:02> Subjective - Date & Time of Evaluation Date of Evaluation: 03/12/18 Time of Evaluation: 16:02 - Subjective Subjective: Patient seen and examined at bedside this morning. No acute events overnight. Per nursing, PEG came out today while trying to administer medications. Patient is non-verbal due to anoxic brain injury suffered in 2014. ROS is unattainable. Objective - Vital Signs/Intake and Output Vital Signs (last 24 hours): Temp Pulse Resp BP Pulse Ox 98.8 F 70 20 118/72 100 03/12/18 07:49 03/12/18 07:49 03/12/18 07:49 03/12/18 07:49 03/12/18 07:49 Intake and Output: 03/12/18 03/12/18 06:59 18:59 Intake Total 860 1130 Output Total 360 1200 Balance 500 -70 - Medications Medications: Current Medications Aspirin (Aspirin Chewable) 81 mg PEG DAILY [facility] Last Admin: 03/12/18 10:14 Dose: 81 mg Carvedilol (Coreg) 3.125 mg PEG BID [facility] Last Admin: 03/12/18 10:17 Dose: 3.125 mg Famotidine (Pepcid) 20 mg PEG DAILY [facility] Last Admin: 03/12/18 10:17 Dose: 20 mg Finasteride (Proscar) 5 mg PO DAILY [facility] Last Admin: 03/12/18 10:18 Dose: 5 mg Heparin Sodium (Porcine) (Heparin) 5,000 units SC Q12 [facility] Last Admin: 03/12/18 10:17 Dose: 5,000 units Levetiracetam (Keppra) 500 mg PEG BID [facility] Last Admin: 03/12/18 10:14 Dose: 500 mg Rosuvastatin Calcium (Crestor) 2.5 mg PEG HS [facility] Last Admin: 03/11/18 21:38 Dose: 2.5 mg Scopolamine (Transderm-Scop) 1 patch TD Q3D [facility] Last Admin: 03/11/18 09:32 Dose: 1 patch Tamsulosin HCl (Flomax) 0.4 mg PEG DAILY [facility] Last Admin: 03/12/18 10:15 Dose: 0.4 mg - Labs Labs: 03/08/18 06:56 03/08/18 06:56 PT 10.6 SECONDS (9.7-12.2) 11/24/15 14:10 INR 1.0 11/24/15 14:10 APTT 25 SECONDS (21-34) 11/24/15 14:10 - Additional Findings Additional findings: - Constitutional Appears: Chronically Ill - Head Exam Head Exam: ATRAUMATIC, NORMOCEPHALIC - Eye Exam Eye Exam: absent: EOMI, Scleral icterus - ENT Exam ENT Exam: Mucous Membranes Moist - Neck Exam Additional comments: Trach in place. - Respiratory Exam Respiratory Exam: Clear to Ausculation Bilateral, NORMAL BREATHING PATTERN. absent: Chest Wall Tenderness, Rales, Rhonchi, Wheezes, Respiratory Distress - Cardiovascular Exam Cardiovascular Exam: REGULAR RHYTHM, +S1, +S2 - GI/Abdominal Exam GI & Abdominal Exam: Distended, Soft, Hypoactive Bowel Sounds. absent: Firm, Guarding, Rigid, Tenderness Additional comments: PEG dislodged and baker in place of the PEG No erythema or swelling of surrounding skin - Extremities Exam Extremities Exam: absent: Calf Tenderness, Pedal Edema - Neurological Exam Neurological Exam: Altered. absent: Alert, Awake, Oriented x3, Reflexes Normal (no threat reflex) - Psychiatric Exam Psychiatric exam: absent: Normal Affect (Patient is non-verbal from anoxic brain injury sustained on 05/2015) Assessment and Plan - Assessment and Plan (Free Text) Plan: (1) Anoxic encephalopathy Assessment & Plan: * s/p cardiac arrest in 05/2015 * no acute changes in mental status. * Pt has non spontaneous movements. * patient is currently on 45cc/hr on tube feedings * via PEG * Aspirin 81mg daily * Keppra 500mg bid Status: Chronic (2) Acute Respiratory failure Assessment & Plan: * Trach in place, continue daily monitoring for secretions. No change in management at this time. * Continue with aggressive suctioning multiple times a day per respiratory therapist if secretions are thickened * Scopolamine 1 patch TD Q3D JOO * Most recent chest xray: * 09/28/17: no active disease. No significant interval change compared to. Status: Resolved (3) History of Recurrent UTIs Assessment & Plan: * ID consult: Dr. Armstrong --> help appreciated * Patient is afebrile, no apparent leukocytosis * Patient is off IV abx since 08/05/17 * patient has condom catheter and Bladder scan PRN to prevent urinary retention Status: Acute (4) History of Urinary retention Assessment & Plan: * Tamsulosin 0.4mg daily * Finasteride 5 mg daily * Bladder scan up to 3x a week to monitor residual urine * patient has had history of recurrent UTIs Status: Chronic (5) Hypokalemia Assessment & Plan: * Monitor and replete Status: Acute (6) History of Sacral ulcer Assessment & Plan: * Healed * Cont with offloading/cushioning/turning * Continue frequent turning, protective ointment and skin checks. Status: Resolved (7) History of coronary artery disease Assessment & Plan: * s/p cardiac stents on 06/13/15 * Cont ASA 81mg via PEG daily * Cont Coreg 3.125mg PEG BID * Rosuvastatin 2.5mg PO HS Status: Acute (8) History of Seizures Assessment & Plan: * Continue Keppra 500mg PEG BID for seizure prophylaxis * Monitor for activity Status: Chronic (9) Lower extremity edema Assessment & Plan: * Improved * SCDs in place * Pressure ulcer boots on b/l * Continue to monitor Status: Chronic (10) Prophylactic measure Assessment & Plan: * Pepcid 20 mg PEG daily * Lovenox 40mg SC daily * SCDs and offloading boots * continue to turn and reposition q2hrs * Continue to monitor medication administrations and clinical presentation weekly labs. 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 Disposition: Patient has prolonged hospitalization due to multiple co- morbidities. Per case management, unable to place patient. Will have wound care see for possible sacral ulcer per nursing. <oDnavan Hallman - Last Filed: 03/31/18 10:34> Objective - Vital Signs/Intake and Output Vital Signs (last 24 hours): Temp Pulse Resp BP Pulse Ox 97.9 F 71 20 108/70 99 03/30/18 23:46 03/30/18 23:46 03/30/18 23:46 03/30/18 23:46 03/30/18 23:46 Intake and Output: 03/31/18 03/31/18 06:59 18:59 Intake Total 1720 Output Total 1200 Balance 520 - Medications Medications: Current Medications Aspirin (Aspirin Chewable) 81 mg PEG DAILY [facility] Last Admin: 03/31/18 10:13 Dose: 81 mg Carvedilol (Coreg) 3.125 mg PEG BID [facility] Last Admin: 03/31/18 10:27 Dose: 3.125 mg Enoxaparin Sodium (Lovenox) 40 mg SC DAILY [facility] Last Admin: 03/31/18 10:13 Dose: 40 mg Famotidine (Pepcid) 20 mg PEG DAILY [facility] Last Admin: 03/31/18 10:13 Dose: 20 mg Finasteride (Proscar) 5 mg PEG DAILY [facility] Last Admin: 03/31/18 10:12 Dose: 5 mg Levetiracetam (Keppra) 500 mg PO BID [facility] Last Admin: 03/31/18 10:12 Dose: 500 mg Rosuvastatin Calcium (Crestor) 2.5 mg PEG HS [facility] Last Admin: 03/30/18 21:08 Dose: 2.5 mg Scopolamine (Transderm-Scop) 1 patch TD Q3D [facility] Last Admin: 03/29/18 11:00 Dose: 1 patch Tamsulosin HCl (Flomax) 0.4 mg PEG DAILY [facility] Last Admin: 03/31/18 10:13 Dose: 0.4 mg - Labs Labs: 03/29/18 06:45 03/29/18 06:45 PT 10.6 SECONDS (9.7-12.2) 11/24/15 14:10 INR 1.0 11/24/15 14:10 APTT 25 SECONDS (21-34) 11/24/15 14:10 Attending/Attestation - Attestation I have personally seen and examined this patient.: Yes I have fully participated in the care of the patient.: Yes I have reviewed all pertinent clinical information, including history, physical exam and plan: Yes Notes (Text): (1) Anoxic encephalopathy (2) Acute Respiratory failure (3) History of Recurrent UTIs (4) History of Urinary retention
[2018-03-12] MEDS: Rosuvastatin Calcium 2.5 mg Tab PEG SCH (21:35)
[2018-03-13] MEDS: levETIRAcetam 100 mg/ml (5ml) Oral Syringe PEG SCH ×2 (09:32→17:35)
[2018-03-13] MEDS: Rosuvastatin Calcium 2.5 mg Tab PEG SCH (21:22)
--- NOTE | 2018-03-13 23:44 | CP.PCM.PCO ---
Physician Communication Note - Physician Communication Note Physician Communication Note: Temporary Baker Catheter came out. Was Paged. 16 Fr Baker placed. NPO Gastric Tube - Time Out Time Out: Side verified, Site verified, Patient ID confirmed, Sterile procedures obs. (sterile dressings placed, iodine prep done. ) - Consent obtained Consent obtained: Emergent consent implied - Performed by Performed by: Mid-level Provider (Joanna Hairston DO PGY1) - Tube type Tube type:: Baker catheter (16 occitan baker placed in PEG tube stoma site) Tube size Argentine:: 16 Attempts: 1 Balloon filled: ml saline: 10 - Confirmation Confirmation:: Epigas. gurgle w/airflush - Nasogastric Tube Suction Nasogastric tube suction:: None - Gastric Aspirate Gastric Aspirate:: Other (tube feeds) - Lavage Performed Lavage performed: No (no indication) - Patient Tolerated Procedure Patient Tolerated Procedure:: Well (unable to fully access due to mental state) Assessment/Plan (1) PEG tube malfunction Assessment and plan: f/u with day team for consult for PEG placement. Dr. Ramirez suggests surgery consult. Per previous procedures. Dr. Quan placed the PEG tube. PEG tube came out 12/[address] Schroeder placed 18F G tube. Current Visit: Yes Status: Acute - Date & Time Date: 03/13/18 Time: 23:50
[2018-03-14] MEDS: levETIRAcetam 100 mg/ml (5ml) Oral Syringe PEG SCH ×3 (09:00→17:25)
[2018-03-14] MEDS: Rosuvastatin Calcium 2.5 mg Tab PEG SCH (21:23)
[2018-03-15 07:32] LABS: BASO % 0.4 % (0.0-2.0); EOS # 0.2 K/uL (0.0-0.7); EOS % 2.5 % (0.0-4.0); HEMOGLOBIN 12.5 g/dL (12.0-18.0); LYMPH # 2.2 K/uL (1.0-4.3); LYMPH % 26.1 % (20.0-40.0); MEAN CELL VOLUME 88.3 fL (80.0-94.0); MEAN CORPUSCULAR HEMOGLOBIN 29.8 pg (27.0-31.0); MEAN CORPUSCULAR HGB CONC 33.7 g/dL (33.0-37.0); MONO # 0.7 K/uL (0.0-0.8); MONO % 8.1 % (0.0-10.0); NEUT # 5.4 K/uL (1.8-7.0); NEUT % 62.9 % (50.0-75.0); RBC 4.18 Mil/uL (4.40-5.90); RED CELL DISTRIBUTION WIDTH 15.2 % (11.5-14.5); WHITE BLOOD COUNT 8.6 K/uL (4.8-10.8)
[2018-03-15 08:18] LABS: ALB/GLOB RATIO 0.7 (1.0-2.1); ALBUMIN 3.7 g/dL (3.5-5.0); ALT/SGPT 38 U/L (21-72); AST/SGOT 24 U/L (17-59); BLOOD UREA NITROGEN 12 mg/dL (9-20); CALCIUM 8.7 mg/dl (8.6-10.4); GFR NON-AFRICAN AMERICAN > 60
--- NOTE | 2018-03-15 09:18 | CP.PCM.PN ---
<Judith Martinez - Last Filed: 03/15/18 12:54> Subjective - Date & Time of Evaluation Date of Evaluation: 03/15/18 Time of Evaluation: 07:15 - Subjective Subjective: Patient seen and examined at bedside this morning. No acute events overnight. Baker working well in place of PEG. Patient is non-verbal due to anoxic brain injury suffered in 2014. ROS is unattainable. Objective - Vital Signs/Intake and Output Vital Signs (last 24 hours): Temp Pulse Resp BP Pulse Ox 97.9 F 61 20 133/72 100 03/15/18 00:00 03/15/18 00:00 03/15/18 00:00 03/15/18 00:00 03/15/18 00:00 Intake and Output: 03/15/18 03/15/18 06:59 18:59 Intake Total 1720 Output Total 825 Balance 895 - Medications Medications: Current Medications Aspirin (Aspirin Chewable) 81 mg PEG DAILY [facility] Last Admin: 03/14/18 09:00 Dose: Not Given Carvedilol (Coreg) 3.125 mg PEG BID [facility] Last Admin: 03/14/18 17:25 Dose: 3.125 mg Famotidine (Pepcid) 20 mg PEG DAILY [facility] Last Admin: 03/14/18 09:00 Dose: Not Given Finasteride (Proscar) 5 mg PO DAILY [facility] Last Admin: 03/14/18 09:00 Dose: Not Given Levetiracetam (Keppra) 500 mg PEG BID [facility] Last Admin: 03/14/18 17:25 Dose: 500 mg Rosuvastatin Calcium (Crestor) 2.5 mg PEG HS [facility] Last Admin: 03/14/18 21:23 Dose: 2.5 mg Scopolamine (Transderm-Scop) 1 patch TD Q3D [facility] Last Admin: 03/14/18 10:00 Dose: 1 patch Tamsulosin HCl (Flomax) 0.4 mg PEG DAILY [facility] Last Admin: 03/14/18 09:00 Dose: Not Given - Labs Labs: 03/15/18 07:20 03/15/18 07:20 PT 10.6 SECONDS (9.7-12.2) 11/24/15 14:10 INR 1.0 11/24/15 14:10 APTT 25 SECONDS (21-34) 11/24/15 14:10 - Additional Findings Additional findings: - Constitutional Appears: Chronically Ill - Head Exam Head Exam: ATRAUMATIC, NORMOCEPHALIC - Eye Exam Eye Exam: absent: EOMI, Scleral icterus - ENT Exam ENT Exam: Mucous Membranes Moist - Neck Exam Additional comments: Trach in place. - Respiratory Exam Respiratory Exam: Clear to Ausculation Bilateral, NORMAL BREATHING PATTERN. absent: Chest Wall Tenderness, Rales, Rhonchi, Wheezes, Respiratory Distress - Cardiovascular Exam Cardiovascular Exam: REGULAR RHYTHM, +S1, +S2 - GI/Abdominal Exam GI & Abdominal Exam: Distended, Soft, Hypoactive Bowel Sounds. absent: Firm, Guarding, Rigid, Tenderness Additional comments: baker in place of the PEG No erythema or swelling of surrounding skin - Extremities Exam Extremities Exam: absent: Calf Tenderness, Pedal Edema - Neurological Exam Neurological Exam: Altered. absent: Alert, Awake, Oriented x3, Reflexes Normal (no threat reflex) - Psychiatric Exam Psychiatric exam: absent: Normal Affect (Patient is non-verbal from anoxic brain injury sustained on 05/2015) Assessment and Plan - Assessment and Plan (Free Text) Plan: (1) Anoxic encephalopathy Assessment & Plan: * s/p cardiac arrest in 05/2015 * no acute changes in mental status. * Pt has non spontaneous movements. * patient is currently on 45cc/hr on tube feedings * via PEG * Aspirin 81mg daily * Keppra 500mg bid Status: Chronic (2) Acute Respiratory failure Assessment & Plan: * Trach in place, continue daily monitoring for secretions. No change in management at this time. * Continue with aggressive suctioning multiple times a day per respiratory therapist if secretions are thickened * Scopolamine 1 patch TD Q3D JOO * Most recent chest xray: * 09/28/17: no active disease. No significant interval change compared to. Status: Resolved (3) History of Recurrent UTIs Assessment & Plan: * ID consult: Dr. Armstrong --> help appreciated * Patient is afebrile, no apparent leukocytosis * Patient is off IV abx since 08/05/17 * patient has condom catheter and Bladder scan PRN to prevent urinary retention Status: Acute (4) History of Urinary retention Assessment & Plan: * Tamsulosin 0.4mg daily * Finasteride 5 mg daily * Bladder scan up to 3x a week to monitor residual urine * patient has had history of recurrent UTIs Status: Chronic (5) Hypokalemia Assessment & Plan: * Monitor and replete Status: Acute (6) History of Sacral ulcer Assessment & Plan: * Healed * Cont with offloading/cushioning/turning * Continue frequent turning, protective ointment and skin checks. Status: Resolved (7) History of coronary artery disease Assessment & Plan: * s/p cardiac stents on 06/13/15 * Cont ASA 81mg via PEG daily * Cont Coreg 3.125mg PEG BID * Rosuvastatin 2.5mg PO HS Status: Acute (8) History of Seizures Assessment & Plan: * Continue Keppra 500mg PEG BID for seizure prophylaxis * Monitor for activity Status: Chronic (9) Lower extremity edema Assessment & Plan: * Improved * SCDs in place * Pressure ulcer boots on b/l * Continue to monitor Status: Chronic (10) Prophylactic measure Assessment & Plan: * Pepcid 20 mg PEG daily * Lovenox 40mg SC daily * SCDs and offloading boots * continue to turn and reposition q2hrs * Continue to monitor medication administrations and clinical presentation weekly labs. 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 Ramirez does not intend to replace it as he did not place it to begin with and the Baker is working well in its place Disposition: Patient has prolonged hospitalization due to multiple co- morbidities. Per case management, unable to place patient. <Jeison Moore - Last Filed: 03/15/18 16:50> Objective - Vital Signs/Intake and Output Vital Signs (last 24 hours): Temp Pulse Resp BP Pulse Ox 98 F 69 20 125/78 98 03/15/18 15:56 03/15/18 15:56 03/15/18 15:56 03/15/18 15:56 03/15/18 15:56 Intake and Output: 03/15/18 03/15/18 06:59 18:59 Intake Total 1720 360 Output Total 825 400 Balance 895 -40 - Medications Medications: Current Medications Aspirin (Aspirin Chewable) 81 mg PEG DAILY [facility] Last Admin: 03/15/18 09:58 Dose: 81 mg Carvedilol (Coreg) 3.125 mg PEG BID [facility] Last Admin: 03/15/18 09:58 Dose: 3.125 mg Famotidine (Pepcid) 20 mg PEG DAILY [facility] Last Admin: 03/15/18 09:58 Dose: 20 mg Finasteride (Proscar) 5 mg PO DAILY [facility] Last Admin: 03/15/18 09:58 Dose: 5 mg Levetiracetam (Keppra) 500 mg PEG BID [facility] Last Admin: 03/15/18 09:58 Dose: 500 mg Rosuvastatin Calcium (Crestor) 2.5 mg PEG HS [facility] Last Admin: 03/14/18 21:23 Dose: 2.5 mg Scopolamine (Transderm-Scop) 1 patch TD Q3D [facility] Last Admin: 03/14/18 10:00 Dose: 1 patch Tamsulosin HCl (Flomax) 0.4 mg PEG DAILY [facility] Last Admin: 03/15/18 09:58 Dose: 0.4 mg - Labs Labs: 03/15/18 07:20 03/15/18 07:20 PT 10.6 SECONDS (9.7-12.2) 11/24/15 14:10 INR 1.0 11/24/15 14:10 APTT 25 SECONDS (21-34) 11/24/15 14:10 Attending/Attestation - Attestation I have personally seen and examined this patient.: Yes I have fully participated in the care of the patient.: Yes I have reviewed all pertinent clinical information, including history, physical exam and plan: Yes Notes (Text): Seen and examined lying comfortable,PEG was out and got faley cath replaced. Discussed with the resident.His PEG was replaced by IR last time. continue feeding with Faley cath until get peg changed I agree with the resident's documentation of the assessment and the plan
[2018-03-15] MEDS: levETIRAcetam 100 mg/ml (5ml) Oral Syringe PEG SCH ×2 (09:58→17:31)
[2018-03-15] MEDS: Rosuvastatin Calcium 2.5 mg Tab PEG SCH (21:09)
[2018-03-16] MEDS: levETIRAcetam 100 mg/ml (5ml) Oral Syringe PEG SCH ×2 (09:20→17:27)
[2018-03-16] MEDS: Rosuvastatin Calcium 2.5 mg Tab PEG SCH (21:07)
--- NOTE | 2018-03-17 07:13 | CP.PCM.PN ---
<Judith Martinez - Last Filed: 03/17/18 11:29> Subjective - Date & Time of Evaluation Date of Evaluation: 03/17/18 Time of Evaluation: 07:10 - Subjective Subjective: Patient seen and examined at bedside this morning. No acute events overnight. Baker working well in place of PEG. Patient is non-verbal due to anoxic brain injury suffered in 2014. ROS is unattainable. Objective - Vital Signs/Intake and Output Vital Signs (last 24 hours): Temp Pulse Resp BP Pulse Ox 98.0 F 77 20 116/71 100 03/17/18 00:00 03/17/18 00:00 03/17/18 00:00 03/17/18 00:00 03/17/18 00:00 Intake and Output: 03/17/18 03/17/18 06:59 18:59 Intake Total 4720 Output Total 700 Balance 4020 - Medications Medications: Current Medications Aspirin (Aspirin Chewable) 81 mg PEG DAILY [facility] Last Admin: 03/16/18 09:19 Dose: 81 mg Carvedilol (Coreg) 3.125 mg PEG BID [facility] Last Admin: 03/16/18 17:27 Dose: 3.125 mg Famotidine (Pepcid) 20 mg PEG DAILY [facility] Last Admin: 03/16/18 09:20 Dose: 20 mg Finasteride (Proscar) 5 mg PO DAILY [facility] Last Admin: 03/16/18 09:20 Dose: 5 mg Levetiracetam (Keppra) 500 mg PEG BID [facility] Last Admin: 03/16/18 17:27 Dose: 500 mg Rosuvastatin Calcium (Crestor) 2.5 mg PEG HS [facility] Last Admin: 03/16/18 21:07 Dose: 2.5 mg Scopolamine (Transderm-Scop) 1 patch TD Q3D [facility] Last Admin: 03/14/18 10:00 Dose: 1 patch Tamsulosin HCl (Flomax) 0.4 mg PEG DAILY [facility] Last Admin: 03/16/18 09:20 Dose: 0.4 mg - Labs Labs: 03/15/18 07:20 03/15/18 07:20 PT 10.6 SECONDS (9.7-12.2) 11/24/15 14:10 INR 1.0 11/24/15 14:10 APTT 25 SECONDS (21-34) 11/24/15 14:10 - Additional Findings Additional findings: - Constitutional Appears: Chronically Ill - Head Exam Head Exam: ATRAUMATIC, NORMOCEPHALIC - Eye Exam Eye Exam: absent: EOMI, Scleral icterus - ENT Exam ENT Exam: Mucous Membranes Moist - Neck Exam Additional comments: Trach in place. - Respiratory Exam Respiratory Exam: Clear to Ausculation Bilateral, NORMAL BREATHING PATTERN. absent: Chest Wall Tenderness, Rales, Rhonchi, Wheezes, Respiratory Distress - Cardiovascular Exam Cardiovascular Exam: REGULAR RHYTHM, +S1, +S2 - GI/Abdominal Exam GI & Abdominal Exam: Distended, Soft, Hypoactive Bowel Sounds. absent: Firm, Guarding, Rigid, Tenderness Additional comments: baker in place of the PEG No erythema or swelling of surrounding skin - Extremities Exam Extremities Exam: absent: Calf Tenderness, Pedal Edema - Neurological Exam Neurological Exam: Altered. absent: Alert, Awake, Oriented x3, Reflexes Normal (no threat reflex) - Psychiatric Exam Psychiatric exam: absent: Normal Affect (Patient is non-verbal from anoxic brain injury sustained on 05/2015) Assessment and Plan - Assessment and Plan (Free Text) Plan: (1) Anoxic encephalopathy Assessment & Plan: * s/p cardiac arrest in 05/2015 * no acute changes in mental status. * Pt has non spontaneous movements. * patient is currently on 45cc/hr on tube feedings * via PEG * Aspirin 81mg daily * Keppra 500mg bid Status: Chronic (2) Acute Respiratory failure Assessment & Plan: * Trach in place, continue daily monitoring for secretions. No change in management at this time. * Continue with aggressive suctioning multiple times a day per respiratory therapist if secretions are thickened * Scopolamine 1 patch TD Q3D JOO * Most recent chest xray: * 09/28/17: no active disease. No significant interval change compared to. Status: Resolved (3) History of Recurrent UTIs Assessment & Plan: * ID consult: Dr. Armstrong --> help appreciated * Patient is afebrile, no apparent leukocytosis * Patient is off IV abx since 08/05/17 * patient has condom catheter and Bladder scan PRN to prevent urinary retention Status: Acute (4) History of Urinary retention Assessment & Plan: * Tamsulosin 0.4mg daily * Finasteride 5 mg daily * Bladder scan up to 3x a week to monitor residual urine * patient has had history of recurrent UTIs Status: Chronic (5) Hypokalemia Assessment & Plan: * Monitor and replete Status: Acute (6) History of Sacral ulcer Assessment & Plan: * Healed * Cont with offloading/cushioning/turning * Continue frequent turning, protective ointment and skin checks. Status: Resolved (7) History of coronary artery disease Assessment & Plan: * s/p cardiac stents on 06/13/15 * Cont ASA 81mg via PEG daily * Cont Coreg 3.125mg PEG BID * Rosuvastatin 2.5mg PO HS Status: Acute (8) History of Seizures Assessment & Plan: * Continue Keppra 500mg PEG BID for seizure prophylaxis * Monitor for activity Status: Chronic (9) Lower extremity edema Assessment & Plan: * Improved * SCDs in place * Pressure ulcer boots on b/l * Continue to monitor Status: Chronic (10) Prophylactic measure Assessment & Plan: * Pepcid 20 mg PEG daily * Lovenox 40mg SC daily * SCDs and offloading boots * continue to turn and reposition q2hrs * Continue to monitor medication administrations and clinical presentation weekly labs. 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 Ramirez does not intend to replace it as he did not place it to begin with and the Baker is working well in its place * Will speak with surgery today to see if they want to replace it since Dr. Quan placed it first (prior to Dr. Schroeder replacing it) Disposition: Patient has prolonged hospitalization due to multiple co- morbidities. Per case management, unable to place patient. <Jeison Moore - Last Filed: 03/19/18 10:21> Objective - Vital Signs/Intake and Output Vital Signs (last 24 hours): Temp Pulse Resp BP Pulse Ox 98.6 F 71 20 106/76 100 03/19/18 07:00 03/19/18 07:00 03/19/18 07:00 03/19/18 07:00 03/19/18 07:00 Intake and Output: 03/19/18 03/19/18 06:59 18:59 Intake Total 860 Output Total 1350 Balance -490 - Medications Medications: Current Medications Aspirin (Aspirin Chewable) 81 mg PEG DAILY [facility] Last Admin: 03/19/18 09:29 Dose: 81 mg Carvedilol (Coreg) 3.125 mg PEG BID [facility] Last Admin: 03/19/18 09:30 Dose: 3.125 mg Famotidine (Pepcid) 20 mg PEG DAILY [facility] Last Admin: 03/19/18 09:30 Dose: 20 mg Finasteride (Proscar) 5 mg PO DAILY [facility] Last Admin: 03/19/18 09:30 Dose: 5 mg Levetiracetam (Keppra) 500 mg PO BID [facility] Last Admin: 03/19/18 10:01 Dose: 500 mg Rosuvastatin Calcium (Crestor) 2.5 mg PEG HS [facility] Last Admin: 03/18/18 21:54 Dose: 2.5 mg Scopolamine (Transderm-Scop) 1 patch TD Q3D [facility] Last Admin: 03/17/18 09:42 Dose: 1 patch Tamsulosin HCl (Flomax) 0.4 mg PEG DAILY [facility] Last Admin: 03/19/18 09:30 Dose: 0.4 mg - Labs Labs: 03/15/18 07:20 03/15/18 07:20 PT 10.6 SECONDS (9.7-12.2) 11/24/15 14:10 INR 1.0 11/24/15 14:10 APTT 25 SECONDS (21-34) 11/24/15 14:10 Attending/Attestation - Attestation I have personally seen and examined this patient.: No I have fully participated in the care of the patient.: Yes I have reviewed all pertinent clinical information, including history, physical exam and plan: Yes
[2018-03-17] MEDS: levETIRAcetam 100 mg/ml (5ml) Oral Syringe PEG SCH ×2 (09:42→17:48)
[2018-03-17] MEDS: Rosuvastatin Calcium 2.5 mg Tab PEG SCH (21:28)
[2018-03-18] MEDS: levETIRAcetam 100 mg/ml (5ml) Oral Syringe PEG SCH ×2 (09:51→18:52)
[2018-03-18] MEDS: Rosuvastatin Calcium 2.5 mg Tab PEG SCH (21:54)
[2018-03-19] MEDS: levETIRAcetam 100 mg/ml (5ml) Oral Syringe PO SCH ×2 (10:01→17:57)
--- NOTE | 2018-03-19 17:06 | CP.PCM.PN ---
<Tyra Yen - Last Filed: 03/19/18 17:05> Subjective - Date & Time of Evaluation Date of Evaluation: 03/19/18 Time of Evaluation: 07:00 - Subjective Subjective: PGY1- Progress Note Patient seen and examined at bedside this morning. No acute events overnight. Patient is non-verbal due to anoxic brain injury suffered in 2014. ROS is unattainable. Objective - Vital Signs/Intake and Output Vital Signs (last 24 hours): Temp Pulse Resp BP Pulse Ox 98.3 F 78 20 122/85 98 03/19/18 15:52 03/19/18 15:52 03/19/18 15:52 03/19/18 15:52 03/19/18 15:52 Intake and Output: 03/19/18 03/19/18 06:59 18:59 Intake Total 860 860 Output Total 1350 1201 Balance -490 -341 - Medications Medications: Current Medications Aspirin (Aspirin Chewable) 81 mg PEG DAILY [facility] Last Admin: 03/19/18 09:29 Dose: 81 mg Carvedilol (Coreg) 3.125 mg PEG BID [facility] Last Admin: 03/19/18 09:30 Dose: 3.125 mg Famotidine (Pepcid) 20 mg PEG DAILY [facility] Last Admin: 03/19/18 09:30 Dose: 20 mg Finasteride (Proscar) 5 mg PO DAILY [facility] Last Admin: 03/19/18 09:30 Dose: 5 mg Levetiracetam (Keppra) 500 mg PO BID [facility] Last Admin: 03/19/18 10:01 Dose: 500 mg Rosuvastatin Calcium (Crestor) 2.5 mg PEG HS [facility] Last Admin: 03/18/18 21:54 Dose: 2.5 mg Scopolamine (Transderm-Scop) 1 patch TD Q3D [facility] Last Admin: 03/17/18 09:42 Dose: 1 patch Tamsulosin HCl (Flomax) 0.4 mg PEG DAILY [facility] Last Admin: 03/19/18 09:30 Dose: 0.4 mg - Labs Labs: 03/15/18 07:20 03/15/18 07:20 PT 10.6 SECONDS (9.7-12.2) 11/24/15 14:10 INR 1.0 11/24/15 14:10 APTT 25 SECONDS (21-34) 11/24/15 14:10 - Additional Findings Additional findings: - Constitutional Appears: Chronically Ill - Head Exam Head Exam: ATRAUMATIC, NORMOCEPHALIC - Eye Exam Eye Exam: absent: EOMI, Scleral icterus - ENT Exam ENT Exam: Mucous Membranes Moist - Neck Exam Additional comments: Trach in place. - Respiratory Exam Respiratory Exam: Clear to Ausculation Bilateral, NORMAL BREATHING PATTERN. absent: Chest Wall Tenderness, Rales, Rhonchi, Wheezes, Respiratory Distress - Cardiovascular Exam Cardiovascular Exam: REGULAR RHYTHM, +S1, +S2 - GI/Abdominal Exam GI & Abdominal Exam: Distended, Soft, Hypoactive Bowel Sounds. absent: Firm, Guarding, Rigid, Tenderness Additional comments: baker in place of the PEG No erythema or swelling of surrounding skin - Extremities Exam Extremities Exam: absent: Calf Tenderness, Pedal Edema - Neurological Exam Neurological Exam: Altered. absent: Alert, Awake, Oriented x3, Reflexes Normal (no threat reflex) - Psychiatric Exam Psychiatric exam: absent: Normal Affect (Patient is non-verbal from anoxic brain injury sustained on 05/2015) Assessment and Plan - Assessment and Plan (Free Text) Assessment: (1) Anoxic encephalopathy Assessment & Plan: * s/p cardiac arrest in 05/2015 * no acute changes in mental status. * Pt has non spontaneous movements. * patient is currently on 45cc/hr on tube feedings * via PEG * Aspirin 81mg daily * Keppra 500mg bid Status: Chronic (2) Acute Respiratory failure Assessment & Plan: * Trach in place, continue daily monitoring for secretions. No change in management at this time. * Continue with aggressive suctioning multiple times a day per respiratory therapist if secretions are thickened * Scopolamine 1 patch TD Q3D JOO * Most recent chest xray: * 09/28/17: no active disease. No significant interval change compared to. Status: Resolved (3) History of Recurrent UTIs Assessment & Plan: * ID consult: Dr. Armstrong --> help appreciated * Patient is afebrile, no apparent leukocytosis * Patient is off IV abx since 08/05/17 * patient has condom catheter and Bladder scan PRN to prevent urinary retention Status: Acute (4) History of Urinary retention Assessment & Plan: * Tamsulosin 0.4mg daily * Finasteride 5 mg daily * Bladder scan up to 3x a week to monitor residual urine * patient has had history of recurrent UTIs Status: Chronic (5) Hypokalemia Assessment & Plan: * Monitor and replete Status: Acute (6) History of Sacral ulcer Assessment & Plan: * Healed * Cont with offloading/cushioning/turning * Continue frequent turning, protective ointment and skin checks. Status: Resolved (7) History of coronary artery disease Assessment & Plan: * s/p cardiac stents on 06/13/15 * Cont ASA 81mg via PEG daily * Cont Coreg 3.125mg PEG BID * Rosuvastatin 2.5mg PO HS Status: Acute (8) History of Seizures Assessment & Plan: * Continue Keppra 500mg PEG BID for seizure prophylaxis * Monitor for activity Status: Chronic (9) Lower extremity edema Assessment & Plan: * Improved * SCDs in place * Pressure ulcer boots on b/l * Continue to monitor Status: Chronic (10) Prophylactic measure Assessment & Plan: * Pepcid 20 mg PEG daily * Lovenox 40mg SC daily * SCDs and offloading boots * continue to turn and reposition q2hrs * Continue to monitor medication administrations and clinical presentation weekly labs. 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 Ramirez does not intend to replace it as he did not place it to begin with and the Baker is working well in its place * Will speak with surgery today to see if they want to replace it since Dr. Quan placed it first (prior to Dr. Schroeder replacing it) Disposition: Patient has prolonged hospitalization due to multiple co- morbidities. Per case management, unable to place patient. <Jeison Moore - Last Filed: 03/22/18 08:05> Objective - Vital Signs/Intake and Output Vital Signs (last 24 hours): Temp Pulse Resp BP Pulse Ox 98.4 F 66 20 100/69 97 03/21/18 23:57 03/21/18 23:57 03/21/18 23:57 03/21/18 23:57 03/21/18 23:57 Intake and Output: 03/22/18 03/22/18 06:59 18:59 Intake Total 1810 Output Total 900 Balance 910 - Medications Medications: Current Medications Aspirin (Aspirin Chewable) 81 mg PEG DAILY [facility] Last Admin: 03/20/18 09:45 Dose: 81 mg Carvedilol (Coreg) 3.125 mg PEG BID [facility] Last Admin: 03/21/18 17:11 Dose: 3.125 mg Famotidine (Pepcid) 20 mg PEG DAILY [facility] Last Admin: 03/20/18 10:03 Dose: 20 mg Finasteride (Proscar) 5 mg PO DAILY [facility] Last Admin: 03/20/18 09:45 Dose: 5 mg Levetiracetam (Keppra) 500 mg PO BID [facility] Last Admin: 03/21/18 17:12 Dose: 500 mg Rosuvastatin Calcium (Crestor) 2.5 mg PEG HS [facility] Last Admin: 03/21/18 21:52 Dose: 2.5 mg Scopolamine (Transderm-Scop) 1 patch TD Q3D [facility] Last Admin: 03/20/18 09:46 Dose: 1 patch Tamsulosin HCl (Flomax) 0.4 mg PEG DAILY [facility] Last Admin: 03/20/18 09:45 Dose: 0.4 mg - Labs Labs: 03/15/18 07:20 03/15/18 07:20 PT 10.6 SECONDS (9.7-12.2) 11/24/15 14:10 INR 1.0 11/24/15 14:10 APTT 25 SECONDS (21-34) 11/24/15 14:10 Attending/Attestation - Attestation I have personally seen and examined this patient.: No I have fully participated in the care of the patient.: Yes I have reviewed all pertinent clinical information, including history, physical exam and plan: Yes
[2018-03-19] MEDS: Rosuvastatin Calcium 2.5 mg Tab PEG SCH (22:29)
[2018-03-20] MEDS: levETIRAcetam 100 mg/ml (5ml) Oral Syringe PO SCH ×2 (09:45→18:20)
[2018-03-20] MEDS: Rosuvastatin Calcium 2.5 mg Tab PEG SCH (21:58)
[2018-03-21] MEDS: levETIRAcetam 100 mg/ml (5ml) Oral Syringe PO SCH (17:12)
[2018-03-21] MEDS: Rosuvastatin Calcium 2.5 mg Tab PEG SCH (21:52)
[2018-03-22 08:22] LABS: BASO % 0.4 % (0.0-2.0); EOS # 0.3 K/uL (0.0-0.7); EOS % 2.5 % (0.0-4.0); HEMOGLOBIN 11.8 g/dL (12.0-18.0); LYMPH # 1.9 K/uL (1.0-4.3); LYMPH % 17.6 % (20.0-40.0); MEAN CELL VOLUME 88.8 fL (80.0-94.0); MEAN CORPUSCULAR HEMOGLOBIN 29.6 pg (27.0-31.0); MEAN CORPUSCULAR HGB CONC 33.4 g/dL (33.0-37.0); MEAN PLATELET VOLUME 9.2 fL (7.2-11.7); MONO # 0.7 K/uL (0.0-0.8); MONO % 6.2 % (0.0-10.0); NEUT % 73.3 % (50.0-75.0); RBC 3.98 Mil/uL (4.40-5.90); WHITE BLOOD COUNT 10.9 K/uL (4.8-10.8)
[2018-03-22 08:36] LABS: ALB/GLOB RATIO 0.7 (1.0-2.1); ALBUMIN 3.5 g/dL (3.5-5.0); ALT/SGPT 32 U/L (21-72); AST/SGOT 23 U/L (17-59); BLOOD UREA NITROGEN 15 mg/dL (9-20); CALCIUM 8.8 mg/dl (8.6-10.4); GFR NON-AFRICAN AMERICAN > 60
[2018-03-22] MEDS: levETIRAcetam 100 mg/ml (5ml) Oral Syringe PO SCH ×2 (09:24→17:37)
--- NOTE | 2018-03-22 16:19 | CP.PCM.PN ---
<Judith Martinez - Last Filed: 03/22/18 16:18> Subjective - Date & Time of Evaluation Date of Evaluation: 03/22/18 Time of Evaluation: 16:18 - Subjective Subjective: Patient seen and examined at bedside this morning. No acute events overnight. Patient is non-verbal due to anoxic brain injury suffered in 2014. ROS is unattainable. Objective - Vital Signs/Intake and Output Vital Signs (last 24 hours): Temp Pulse Resp BP Pulse Ox 98.4 F 76 18 111/70 98 03/22/18 15:56 03/22/18 15:56 03/22/18 15:56 03/22/18 15:56 03/22/18 15:56 Intake and Output: 03/22/18 03/22/18 06:59 18:59 Intake Total 1810 860 Output Total 900 680 Balance 910 180 - Medications Medications: Current Medications Aspirin (Aspirin Chewable) 81 mg PEG DAILY [facility] Last Admin: 03/22/18 09:24 Dose: 81 mg Carvedilol (Coreg) 3.125 mg PEG BID [facility] Last Admin: 03/22/18 09:24 Dose: 3.125 mg Famotidine (Pepcid) 20 mg PEG DAILY [facility] Last Admin: 03/22/18 09:24 Dose: 20 mg Finasteride (Proscar) 5 mg PO DAILY [facility] Last Admin: 03/22/18 09:25 Dose: 5 mg Levetiracetam (Keppra) 500 mg PO BID [facility] Last Admin: 03/22/18 09:24 Dose: 500 mg Rosuvastatin Calcium (Crestor) 2.5 mg PEG HS [facility] Last Admin: 03/21/18 21:52 Dose: 2.5 mg Scopolamine (Transderm-Scop) 1 patch TD Q3D [facility] Last Admin: 03/20/18 09:46 Dose: 1 patch Tamsulosin HCl (Flomax) 0.4 mg PEG DAILY [facility] Last Admin: 03/22/18 09:24 Dose: 0.4 mg - Labs Labs: 03/22/18 08:12 03/22/18 08:12 PT 10.6 SECONDS (9.7-12.2) 11/24/15 14:10 INR 1.0 11/24/15 14:10 APTT 25 SECONDS (21-34) 11/24/15 14:10 - Additional Findings Additional findings: - Constitutional Appears: Chronically Ill - Head Exam Head Exam: ATRAUMATIC, NORMOCEPHALIC - Eye Exam Eye Exam: absent: EOMI, Scleral icterus - ENT Exam ENT Exam: Mucous Membranes Moist - Neck Exam Additional comments: Trach in place. - Respiratory Exam Respiratory Exam: Clear to Ausculation Bilateral, NORMAL BREATHING PATTERN. absent: Chest Wall Tenderness, Rales, Rhonchi, Wheezes, Respiratory Distress - Cardiovascular Exam Cardiovascular Exam: REGULAR RHYTHM, +S1, +S2 - GI/Abdominal Exam GI & Abdominal Exam: Distended, Soft, Hypoactive Bowel Sounds. absent: Firm, Guarding, Rigid, Tenderness Additional comments: baker in place of the PEG No erythema or swelling of surrounding skin - Extremities Exam Extremities Exam: absent: Calf Tenderness, Pedal Edema - Neurological Exam Neurological Exam: Altered. absent: Alert, Awake, Oriented x3, Reflexes Normal (no threat reflex) - Psychiatric Exam Psychiatric exam: absent: Normal Affect (Patient is non-verbal from anoxic brain injury sustained on 05/2015) Assessment and Plan - Assessment and Plan (Free Text) Plan: (1) Anoxic encephalopathy Assessment & Plan: * s/p cardiac arrest in 05/2015 * no acute changes in mental status. * Pt has non spontaneous movements. * patient is currently on 45cc/hr on tube feedings * via PEG * Aspirin 81mg daily * Keppra 500mg bid Status: Chronic (2) Acute Respiratory failure Assessment & Plan: * Trach in place, continue daily monitoring for secretions. No change in management at this time. * Continue with aggressive suctioning multiple times a day per respiratory therapist if secretions are thickened * Scopolamine 1 patch TD Q3D [facility] * Most recent chest xray: * 09/28/17: no active disease. No significant interval change compared to. Status: Resolved (3) History of Recurrent UTIs Assessment & Plan: * ID consult: Dr. Armstrong --> help appreciated * Patient is afebrile, no apparent leukocytosis * Patient is off IV abx since 08/05/17 * patient has condom catheter and Bladder scan PRN to prevent urinary retention Status: Acute (4) History of Urinary retention Assessment & Plan: * Tamsulosin 0.4mg daily * Finasteride 5 mg daily * Bladder scan up to 3x a week to monitor residual urine * patient has had history of recurrent UTIs Status: Chronic (5) Hypokalemia Assessment & Plan: * Monitor and replete Status: Acute (6) History of Sacral ulcer Assessment & Plan: * Healed * Cont with offloading/cushioning/turning * Continue frequent turning, protective ointment and skin checks. Status: Resolved (7) History of coronary artery disease Assessment & Plan: * s/p cardiac stents on 06/13/15 * Cont ASA 81mg via PEG daily * Cont Coreg 3.125mg PEG BID * Rosuvastatin 2.5mg PO HS Status: Acute (8) History of Seizures Assessment & Plan: * Continue Keppra 500mg PEG BID for seizure prophylaxis * Monitor for activity Status: Chronic (9) Lower extremity edema Assessment & Plan: * Improved * SCDs in place * Pressure ulcer boots on b/l * Continue to monitor Status: Chronic (10) Prophylactic measure Assessment & Plan: * Pepcid 20 mg PEG daily * Lovenox 40mg SC daily * SCDs and offloading boots * continue to turn and reposition q2hrs * Continue to monitor medication administrations and clinical presentation weekly labs. 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 Ramirez does not intend to replace it as he did not place it to begin with and the Baker is working well in its place * Will speak with surgery today to see if they want to replace it since Dr. Quan placed it first (prior to Dr. Schroeder replacing it) Disposition: Patient has prolonged hospitalization due to multiple co- morbidities. Per case management, unable to place patient. <Donavan Hallman - Last Filed: 03/31/18 10:35> Objective - Vital Signs/Intake and Output Vital Signs (last 24 hours): Temp Pulse Resp BP Pulse Ox 97.9 F 71 20 108/70 99 03/30/18 23:46 03/30/18 23:46 03/30/18 23:46 03/30/18 23:46 03/30/18 23:46 Intake and Output: 03/31/18 03/31/18 06:59 18:59 Intake Total 1720 Output Total 1200 Balance 520 - Medications Medications: Current Medications Aspirin (Aspirin Chewable) 81 mg PEG DAILY [facility] Last Admin: 03/31/18 10:13 Dose: 81 mg Carvedilol (Coreg) 3.125 mg PEG BID [facility] Last Admin: 03/31/18 10:27 Dose: 3.125 mg Enoxaparin Sodium (Lovenox) 40 mg SC DAILY [facility] Last Admin: 03/31/18 10:13 Dose: 40 mg Famotidine (Pepcid) 20 mg PEG DAILY [facility] Last Admin: 03/31/18 10:13 Dose: 20 mg Finasteride (Proscar) 5 mg PEG DAILY [facility] Last Admin: 03/31/18 10:12 Dose: 5 mg Levetiracetam (Keppra) 500 mg PO BID [facility] Last Admin: 03/31/18 10:12 Dose: 500 mg Rosuvastatin Calcium (Crestor) 2.5 mg PEG HS [facility] Last Admin: 03/30/18 21:08 Dose: 2.5 mg Scopolamine (Transderm-Scop) 1 patch TD Q3D [facility] Last Admin: 03/29/18 11:00 Dose: 1 patch Tamsulosin HCl (Flomax) 0.4 mg PEG DAILY [facility] Last Admin: 03/31/18 10:13 Dose: 0.4 mg - Labs Labs: 03/29/18 06:45 03/29/18 06:45 PT 10.6 SECONDS (9.7-12.2) 11/24/15 14:10 INR 1.0 11/24/15 14:10 APTT 25 SECONDS (21-34) 11/24/15 14:10 Attending/Attestation - Attestation I have personally seen and examined this patient.: Yes I have fully participated in the care of the patient.: Yes I have reviewed all pertinent clinical information, including history, physical exam and plan: Yes Notes (Text): (1) Anoxic encephalopathy (2) Acute Respiratory failure (3) History of Recurrent UTIs (4) History of Urinary retention
[2018-03-22] MEDS: Rosuvastatin Calcium 2.5 mg Tab PEG SCH (21:11)
[2018-03-23] MEDS: levETIRAcetam 100 mg/ml (5ml) Oral Syringe PO SCH ×2 (10:43→18:12)
[2018-03-23] MEDS: Rosuvastatin Calcium 2.5 mg Tab PEG SCH (21:42)
[2018-03-24] MEDS: levETIRAcetam 100 mg/ml (5ml) Oral Syringe PO SCH ×2 (10:21→18:29)
--- NOTE | 2018-03-24 14:20 | CP.PCM.PN ---
Subjective - Date & Time of Evaluation Date of Evaluation: 03/24/18 Time of Evaluation: 14:19 - Subjective Subjective: Patient seen and examined at bedside this morning. No acute events overnight. Patient is non-verbal due to anoxic brain injury suffered in 2014. ROS is unattainable. Objective - Vital Signs/Intake and Output Vital Signs (last 24 hours): Temp Pulse Resp BP Pulse Ox 98.3 F 75 18 114/72 100 03/24/18 08:00 03/24/18 08:00 03/24/18 08:00 03/24/18 08:00 03/24/18 08:00 Intake and Output: 03/24/18 03/24/18 06:59 18:59 Intake Total 860 860 Output Total 600 1150 Balance 260 -290 - Medications Medications: Current Medications Aspirin (Aspirin Chewable) 81 mg PEG DAILY [facility] Last Admin: 03/24/18 10:21 Dose: 81 mg Carvedilol (Coreg) 3.125 mg PEG BID [facility] Last Admin: 03/23/18 18:03 Dose: 3.125 mg Famotidine (Pepcid) 20 mg PEG DAILY [facility] Last Admin: 03/24/18 10:20 Dose: 20 mg Finasteride (Proscar) 5 mg PO DAILY [facility] Last Admin: 03/24/18 10:21 Dose: 5 mg Heparin Sodium (Porcine) (Heparin) 5,000 units SC Q12H [facility] Last Admin: 03/24/18 04:30 Dose: 5,000 units Levetiracetam (Keppra) 500 mg PO BID [facility] Last Admin: 03/24/18 10:21 Dose: 500 mg Rosuvastatin Calcium (Crestor) 2.5 mg PEG HS [facility] Last Admin: 03/23/18 21:42 Dose: 2.5 mg Scopolamine (Transderm-Scop) 1 patch TD Q3D [facility] Last Admin: 03/23/18 10:44 Dose: 1 patch Tamsulosin HCl (Flomax) 0.4 mg PEG DAILY [facility] Last Admin: 03/24/18 10:20 Dose: 0.4 mg - Labs Labs: 03/22/18 08:12 03/22/18 08:12 PT 10.6 SECONDS (9.7-12.2) 11/24/15 14:10 INR 1.0 11/24/15 14:10 APTT 25 SECONDS (21-34) 11/24/15 14:10 - Additional Findings Additional findings: - Constitutional Appears: Chronically Ill - Head Exam Head Exam: ATRAUMATIC, NORMOCEPHALIC - Eye Exam Eye Exam: absent: EOMI, Scleral icterus - ENT Exam ENT Exam: Mucous Membranes Moist - Neck Exam Additional comments: Trach in place. - Respiratory Exam Respiratory Exam: Clear to Ausculation Bilateral, NORMAL BREATHING PATTERN. absent: Chest Wall Tenderness, Rales, Rhonchi, Wheezes, Respiratory Distress - Cardiovascular Exam Cardiovascular Exam: REGULAR RHYTHM, +S1, +S2 - GI/Abdominal Exam GI & Abdominal Exam: Distended, Soft, Hypoactive Bowel Sounds. absent: Firm, Guarding, Rigid, Tenderness Additional comments: baker in place of the PEG No erythema or swelling of surrounding skin - Extremities Exam Extremities Exam: absent: Calf Tenderness, Pedal Edema - Neurological Exam Neurological Exam: Altered. absent: Alert, Awake, Oriented x3, Reflexes Normal (no threat reflex) - Psychiatric Exam Psychiatric exam: absent: Normal Affect (Patient is non-verbal from anoxic brain injury sustained on 05/2015) Assessment and Plan - Assessment and Plan (Free Text) Plan: (1) Anoxic encephalopathy Assessment & Plan: * s/p cardiac arrest in 05/2015 * no acute changes in mental status. * Pt has non spontaneous movements. * patient is currently on 45cc/hr on tube feedings * via PEG * Aspirin 81mg daily * Keppra 500mg bid Status: Chronic (2) Acute Respiratory failure Assessment & Plan: * Trach in place, continue daily monitoring for secretions. No change in management at this time. * Continue with aggressive suctioning multiple times a day per respiratory therapist if secretions are thickened * Scopolamine 1 patch TD Q3D JOO * Most recent chest xray: * 09/28/17: no active disease. No significant interval change compared to. Status: Resolved (3) History of Recurrent UTIs Assessment & Plan: * ID consult: Dr. Armstrong --> help appreciated * Patient is afebrile, no apparent leukocytosis * Patient is off IV abx since 08/05/17 * patient has condom catheter and Bladder scan PRN to prevent urinary retention Status: Acute (4) History of Urinary retention Assessment & Plan: * Tamsulosin 0.4mg daily * Finasteride 5 mg daily * Bladder scan up to 3x a week to monitor residual urine * patient has had history of recurrent UTIs Status: Chronic (5) Hypokalemia Assessment & Plan: * Monitor and replete Status: Acute (6) History of Sacral ulcer Assessment & Plan: * Healed * Cont with offloading/cushioning/turning * Continue frequent turning, protective ointment and skin checks. Status: Resolved (7) History of coronary artery disease Assessment & Plan: * s/p cardiac stents on 06/13/15 * Cont ASA 81mg via PEG daily * Cont Coreg 3.125mg PEG BID * Rosuvastatin 2.5mg PO HS Status: Acute (8) History of Seizures Assessment & Plan: * Continue Keppra 500mg PEG BID for seizure prophylaxis * Monitor for activity Status: Chronic (9) Lower extremity edema Assessment & Plan: * Improved * SCDs in place * Pressure ulcer boots on b/l * Continue to monitor Status: Chronic (10) Prophylactic measure Assessment & Plan: * Pepcid 20 mg PEG daily * Lovenox 40mg SC daily * SCDs and offloading boots * continue to turn and reposition q2hrs * Continue to monitor medication administrations and clinical presentation weekly labs. 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 Ramirez does not intend to replace it as he did not place it to begin with and the Baker is working well in its place * Will speak with surgery today to see if they want to replace it since Dr. Quan placed it first (prior to Dr. Schroeder replacing it) Disposition: Patient has prolonged hospitalization due to multiple co- morbidities. Per case management, unable to place patient.
[2018-03-24] MEDS: Rosuvastatin Calcium 2.5 mg Tab PEG SCH (21:23)
[2018-03-25] MEDS: levETIRAcetam 100 mg/ml (5ml) Oral Syringe PO SCH ×2 (09:41→18:09)
[2018-03-25] MEDS: Rosuvastatin Calcium 2.5 mg Tab PEG SCH (21:53)
--- NOTE | 2018-03-26 07:17 | CP.PCM.PN ---
Subjective - Date & Time of Evaluation Date of Evaluation: 03/26/18 Time of Evaluation: 07:16 - Subjective Subjective: Patient seen and examined at bedside this morning. No acute events overnight. Patient is non-verbal due to anoxic brain injury suffered in 2014. ROS is unattainable. Objective - Vital Signs/Intake and Output Vital Signs (last 24 hours): Temp Pulse Resp BP Pulse Ox 97.5 F L 65 20 103/65 99 03/26/18 00:00 03/26/18 00:00 03/26/18 00:00 03/26/18 00:00 03/26/18 00:00 Intake and Output: 03/26/18 03/26/18 06:59 18:59 Intake Total 1720 Output Total 600 Balance 1120 - Medications Medications: Current Medications Aspirin (Aspirin Chewable) 81 mg PEG DAILY [facility] Last Admin: 03/25/18 09:42 Dose: 81 mg Carvedilol (Coreg) 3.125 mg PEG BID [facility] Last Admin: 03/25/18 18:09 Dose: 3.125 mg Famotidine (Pepcid) 20 mg PEG DAILY [facility] Last Admin: 03/25/18 09:41 Dose: 20 mg Finasteride (Proscar) 5 mg PO DAILY [facility] Last Admin: 03/25/18 09:42 Dose: 5 mg Levetiracetam (Keppra) 500 mg PO BID [facility] Last Admin: 03/25/18 18:09 Dose: 500 mg Rosuvastatin Calcium (Crestor) 2.5 mg PEG HS [facility] Last Admin: 03/25/18 21:53 Dose: 2.5 mg Scopolamine (Transderm-Scop) 1 patch TD Q3D [facility] Last Admin: 03/23/18 10:44 Dose: 1 patch Tamsulosin HCl (Flomax) 0.4 mg PEG DAILY [facility] Last Admin: 03/25/18 09:42 Dose: 0.4 mg - Labs Labs: 03/22/18 08:12 03/22/18 08:12 PT 10.6 SECONDS (9.7-12.2) 11/24/15 14:10 INR 1.0 11/24/15 14:10 APTT 25 SECONDS (21-34) 11/24/15 14:10 - Additional Findings Additional findings: - Constitutional Appears: Chronically Ill - Head Exam Head Exam: ATRAUMATIC, NORMOCEPHALIC - Eye Exam Eye Exam: absent: EOMI, Scleral icterus - ENT Exam ENT Exam: Mucous Membranes Moist - Neck Exam Additional comments: Trach in place. - Respiratory Exam Respiratory Exam: Clear to Ausculation Bilateral, NORMAL BREATHING PATTERN. absent: Chest Wall Tenderness, Rales, Rhonchi, Wheezes, Respiratory Distress - Cardiovascular Exam Cardiovascular Exam: REGULAR RHYTHM, +S1, +S2 - GI/Abdominal Exam GI & Abdominal Exam: Distended, Soft, Hypoactive Bowel Sounds. absent: Firm, Guarding, Rigid, Tenderness Additional comments: baker in place of the PEG No erythema or swelling of surrounding skin - Extremities Exam Extremities Exam: absent: Calf Tenderness, Pedal Edema - Neurological Exam Neurological Exam: Altered. absent: Alert, Awake, Oriented x3, Reflexes Normal (no threat reflex) - Psychiatric Exam Psychiatric exam: absent: Normal Affect (Patient is non-verbal from anoxic brain injury sustained on 05/2015) Assessment and Plan - Assessment and Plan (Free Text) Plan: (1) Anoxic encephalopathy Assessment & Plan: * s/p cardiac arrest in 05/2015 * no acute changes in mental status. * Pt has non spontaneous movements. * patient is currently on 45cc/hr on tube feedings * via PEG * Aspirin 81mg daily * Keppra 500mg bid Status: Chronic (2) Acute Respiratory failure Assessment & Plan: * Trach in place, continue daily monitoring for secretions. No change in management at this time. * Continue with aggressive suctioning multiple times a day per respiratory therapist if secretions are thickened * Scopolamine 1 patch TD Q3D JOO * Most recent chest xray: * 09/28/17: no active disease. No significant interval change compared to. Status: Resolved (3) History of Recurrent UTIs Assessment & Plan: * ID consult: Dr. Armstrong --> help appreciated * Patient is afebrile, no apparent leukocytosis * Patient is off IV abx since 08/05/17 * patient has condom catheter and Bladder scan PRN to prevent urinary retention Status: Acute (4) History of Urinary retention Assessment & Plan: * Tamsulosin 0.4mg daily * Finasteride 5 mg daily * Bladder scan up to 3x a week to monitor residual urine * patient has had history of recurrent UTIs Status: Chronic (5) Hypokalemia Assessment & Plan: * Monitor and replete Status: Acute (6) History of Sacral ulcer Assessment & Plan: * Healed * Cont with offloading/cushioning/turning * Continue frequent turning, protective ointment and skin checks. Status: Resolved (7) History of coronary artery disease Assessment & Plan: * s/p cardiac stents on 06/13/15 * Cont ASA 81mg via PEG daily * Cont Coreg 3.125mg PEG BID * Rosuvastatin 2.5mg PO HS Status: Acute (8) History of Seizures Assessment & Plan: * Continue Keppra 500mg PEG BID for seizure prophylaxis * Monitor for activity Status: Chronic (9) Lower extremity edema Assessment & Plan: * Improved * SCDs in place * Pressure ulcer boots on b/l * Continue to monitor Status: Chronic (10) Prophylactic measure Assessment & Plan: * Pepcid 20 mg PEG daily * Lovenox 40mg SC daily * SCDs and offloading boots * continue to turn and reposition q2hrs * Continue to monitor medication administrations and clinical presentation weekly labs. 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 Ramirez does not intend to replace it as he did not place it to begin with and the Baker is working well in its place * Will speak with surgery today to see if they want to replace it since Dr. Quan placed it first (prior to Dr. Schroeder replacing it) Disposition: Patient has prolonged hospitalization due to multiple co- morbidities. Per case management, unable to place patient.
[2018-03-26] MEDS: levETIRAcetam 100 mg/ml (5ml) Oral Syringe PO SCH ×2 (10:30→17:52)
[2018-03-26] MEDS: Rosuvastatin Calcium 2.5 mg Tab PEG SCH (21:49)
[2018-03-27] MEDS: levETIRAcetam 100 mg/ml (5ml) Oral Syringe PO SCH ×2 (12:18→20:11)
[2018-03-27] MEDS: Rosuvastatin Calcium 2.5 mg Tab PEG SCH (22:01)
[2018-03-28] MEDS: levETIRAcetam 100 mg/ml (5ml) Oral Syringe PO SCH ×2 (11:18→17:37)
[2018-03-28] MEDS: Rosuvastatin Calcium 2.5 mg Tab PEG SCH (22:00)
[2018-03-29 07:01] LABS: BASO % 0.3 % (0.0-2.0); EOS # 0.3 K/uL (0.0-0.7); EOS % 3.6 % (0.0-4.0); HEMOGLOBIN 11.6 g/dL (12.0-18.0); LYMPH # 2.1 K/uL (1.0-4.3); LYMPH % 23.8 % (20.0-40.0); MEAN CELL VOLUME 88.8 fL (80.0-94.0); MEAN CORPUSCULAR HEMOGLOBIN 29.9 pg (27.0-31.0); MEAN CORPUSCULAR HGB CONC 33.6 g/dL (33.0-37.0); MEAN PLATELET VOLUME 8.7 fL (7.2-11.7); MONO # 0.8 K/uL (0.0-0.8); MONO % 9.2 % (0.0-10.0); NEUT # 5.6 K/uL (1.8-7.0); NEUT % 63.1 % (50.0-75.0); RBC 3.89 Mil/uL (4.40-5.90); RED CELL DISTRIBUTION WIDTH 15.3 % (11.5-14.5); WHITE BLOOD COUNT 8.9 K/uL (4.8-10.8)
[2018-03-29 07:13] LABS: ALB/GLOB RATIO 0.8 (1.0-2.1); ALBUMIN 3.6 g/dL (3.5-5.0); ALT/SGPT 29 U/L (21-72); AST/SGOT 20 U/L (17-59); BLOOD UREA NITROGEN 11 mg/dL (9-20); CALCIUM 8.5 mg/dl (8.6-10.4); GFR NON-AFRICAN AMERICAN > 60
[2018-03-29] MEDS: levETIRAcetam 100 mg/ml (5ml) Oral Syringe PO SCH ×3 (11:00→18:03)
[2018-03-29] MEDS: Rosuvastatin Calcium 2.5 mg Tab PEG SCH (21:19)
--- NOTE | 2018-03-30 07:09 | CP.PCM.PN ---
<Alisia Pappas - Last Filed: 03/30/18 13:34> Subjective - Date & Time of Evaluation Date of Evaluation: 03/30/18 Time of Evaluation: 07:00 - Subjective Subjective: Medicine Progress Note: Patient seen and examined at bedside this morning. No acute events overnight. Patient is non-verbal due to anoxic brain injury suffered in 2014. ROS is unattainable. Objective - Vital Signs/Intake and Output Vital Signs (last 24 hours): Temp Pulse Resp BP Pulse Ox 98.3 F 68 20 105/66 98 03/29/18 23:35 03/29/18 23:35 03/29/18 23:35 03/29/18 23:35 03/29/18 23:35 Intake and Output: 03/30/18 03/30/18 06:59 18:59 Intake Total 1220 Output Total 800 Balance 420 - Medications Medications: Current Medications Aspirin (Aspirin Chewable) 81 mg PEG DAILY [facility] Last Admin: 03/29/18 11:43 Dose: 81 mg Carvedilol (Coreg) 3.125 mg PEG BID [facility] Last Admin: 03/29/18 18:03 Dose: 3.125 mg Enoxaparin Sodium (Lovenox) 40 mg SC DAILY [facility] Famotidine (Pepcid) 20 mg PEG DAILY [facility] Last Admin: 03/29/18 11:43 Dose: 20 mg Finasteride (Proscar) 5 mg PEG DAILY [facility] Levetiracetam (Keppra) 500 mg PO BID [facility] Last Admin: 03/29/18 18:03 Dose: 500 mg Rosuvastatin Calcium (Crestor) 2.5 mg PEG HS [facility] Last Admin: 03/29/18 21:19 Dose: 2.5 mg Scopolamine (Transderm-Scop) 1 patch TD Q3D [facility] Last Admin: 03/29/18 11:00 Dose: 1 patch Tamsulosin HCl (Flomax) 0.4 mg PEG DAILY [facility] Last Admin: 03/29/18 11:44 Dose: 0.4 mg - Labs Labs: 03/29/18 06:45 03/29/18 06:45 PT 10.6 SECONDS (9.7-12.2) 11/24/15 14:10 INR 1.0 11/24/15 14:10 APTT 25 SECONDS (21-34) 11/24/15 14:10 - Constitutional Appears: Chronically Ill - Head Exam Head Exam: ATRAUMATIC, NORMAL INSPECTION - Eye Exam Eye Exam: absent: EOMI, Scleral icterus - Neck Exam Additional comments: Trach in place - Respiratory Exam Respiratory Exam: NORMAL BREATHING PATTERN - Cardiovascular Exam Cardiovascular Exam: REGULAR RHYTHM, +S1, +S2 - GI/Abdominal Exam Additional comments: baker in place the PEG No erythema or swelling of surrounding skin - Extremities Exam Extremities Exam: Normal Inspection. absent: Pedal Edema, Tenderness - Neurological Exam Neurological Exam: absent: Alert, Awake, Oriented x3 Assessment and Plan - Assessment and Plan (Free Text) Assessment: (1) Anoxic encephalopathy Assessment & Plan: * s/p cardiac arrest in 05/2015 * no acute changes in mental status. * Pt has non spontaneous movements. * patient is currently on 45cc/hr on tube feedings * via PEG * Aspirin 81mg daily * Keppra 500mg bid Status: Chronic (2) Acute Respiratory failure Assessment & Plan: * Trach in place, continue daily monitoring for secretions. No change in management at this time. * Continue with aggressive suctioning multiple times a day per respiratory therapist if secretions are thickened * Scopolamine 1 patch TD Q3D JOO * Most recent chest xray: * 09/28/17: no active disease. No significant interval change compared to. Status: Resolved (3) History of Recurrent UTIs Assessment & Plan: * ID consult: Dr. Armstrong --> help appreciated * Patient is afebrile, no apparent leukocytosis * Patient is off IV abx since 08/05/17 * patient has condom catheter and Bladder scan PRN to prevent urinary retention Status: Acute (4) History of Urinary retention Assessment & Plan: * Tamsulosin 0.4mg daily * Finasteride 5 mg daily * Bladder scan up to 3x a week to monitor residual urine * patient has had history of recurrent UTIs Status: Chronic (5) Hypokalemia Assessment & Plan: * Monitor and replete Status: Acute (6) History of Sacral ulcer Assessment & Plan: * Healed * Cont with offloading/cushioning/turning * Continue frequent turning, protective ointment and skin checks. Status: Resolved (7) History of coronary artery disease Assessment & Plan: * s/p cardiac stents on 06/13/15 * Cont ASA 81mg via PEG daily * Cont Coreg 3.125mg PEG BID * Rosuvastatin 2.5mg PO HS Status: Acute (8) History of Seizures Assessment & Plan: * Continue Keppra 500mg PEG BID for seizure prophylaxis * Monitor for activity Status: Chronic (9) Lower extremity edema Assessment & Plan: * Improved * SCDs in place * Pressure ulcer boots on b/l * Continue to monitor Status: Chronic (10) Prophylactic measure Assessment & Plan: * Pepcid 20 mg PEG daily * Lovenox 40mg SC daily * SCDs and offloading boots * continue to turn and reposition q2hrs * Continue to monitor medication administrations and clinical presentation weekly labs. 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 Ramirez was previously consulted * Fredo is working well in PEG tube place Disposition: Patient has prolonged hospitalization due to multiple co- morbidities. Per case management, unable to place patient. <Jeison Moore - Last Filed: 03/30/18 17:19> Objective - Vital Signs/Intake and Output Vital Signs (last 24 hours): Temp Pulse Resp BP Pulse Ox 98.8 F 59 L 20 117/74 98 03/30/18 15:00 03/30/18 15:00 03/30/18 15:00 03/30/18 15:00 03/30/18 15:00 Intake and Output: 03/30/18 03/30/18 06:59 18:59 Intake Total 1220 860 Output Total 800 600 Balance 420 260 - Medications Medications: Current Medications Aspirin (Aspirin Chewable) 81 mg PEG DAILY [facility] Last Admin: 03/30/18 10:05 Dose: 81 mg Carvedilol (Coreg) 3.125 mg PEG BID [facility] Last Admin: 03/30/18 10:08 Dose: 3.125 mg Enoxaparin Sodium (Lovenox) 40 mg SC DAILY [facility] Last Admin: 03/30/18 10:05 Dose: 40 mg Famotidine (Pepcid) 20 mg PEG DAILY [facility] Last Admin: 03/30/18 10:05 Dose: 20 mg Finasteride (Proscar) 5 mg PEG DAILY [facility] Last Admin: 03/30/18 10:05 Dose: 5 mg Levetiracetam (Keppra) 500 mg PO BID [facility] Last Admin: 03/30/18 10:05 Dose: 500 mg Rosuvastatin Calcium (Crestor) 2.5 mg PEG HS [facility] Last Admin: 03/29/18 21:19 Dose: 2.5 mg Scopolamine (Transderm-Scop) 1 patch TD Q3D [facility] Last Admin: 03/29/18 11:00 Dose: 1 patch Tamsulosin HCl (Flomax) 0.4 mg PEG DAILY [facility] Last Admin: 03/30/18 10:05 Dose: 0.4 mg - Labs Labs: 03/29/18 06:45 03/29/18 06:45 PT 10.6 SECONDS (9.7-12.2) 11/24/15 14:10 INR 1.0 11/24/15 14:10 APTT 25 SECONDS (21-34) 11/24/15 14:10 Attending/Attestation - Attestation I have personally seen and examined this patient.: Yes I have fully participated in the care of the patient.: Yes I have reviewed all pertinent clinical information, including history, physical exam and plan: Yes Notes (Text): Seen and examined by me. no discomfort noted Discussed with the resident I agrees with the documentation
[2018-03-30] MEDS: Enoxaparin 40 mg Syringe SC SCH (10:05)
[2018-03-30] MEDS: levETIRAcetam 100 mg/ml (5ml) Oral Syringe PO SCH ×2 (10:05→17:23)
[2018-03-30] MEDS: Rosuvastatin Calcium 2.5 mg Tab PEG SCH (21:08)
[2018-03-31] MEDS: levETIRAcetam 100 mg/ml (5ml) Oral Syringe PO SCH ×2 (10:12→18:08)
[2018-03-31] MEDS: Enoxaparin 40 mg Syringe SC SCH (10:13)
--- NOTE | 2018-03-31 12:23 | CP.PCM.PN ---
<Alisia Pappas - Last Filed: 03/31/18 12:19> Subjective - Date & Time of Evaluation Date of Evaluation: 03/31/18 Time of Evaluation: 07:00 - Subjective Subjective: Medicine Progress Note: Patient seen and examined at bedside this morning. No acute events overnight. Per nurse the patient's feeding tube which is currently a baker is clogged. Patient is non-verbal due to anoxic brain injury suffered in 2015. ROS is unattainable. Objective - Vital Signs/Intake and Output Vital Signs (last 24 hours): Temp Pulse Resp BP Pulse Ox 98.5 F 77 21 127/65 99 03/31/18 07:00 03/31/18 07:00 03/31/18 07:00 03/31/18 07:00 03/31/18 07:00 Intake and Output: 03/31/18 03/31/18 06:59 18:59 Intake Total 1720 Output Total 1200 Balance 520 - Medications Medications: Current Medications Aspirin (Aspirin Chewable) 81 mg PEG DAILY [facility] Last Admin: 03/31/18 10:13 Dose: 81 mg Carvedilol (Coreg) 3.125 mg PEG BID [facility] Last Admin: 03/31/18 10:27 Dose: 3.125 mg Enoxaparin Sodium (Lovenox) 40 mg SC DAILY [facility] Last Admin: 03/31/18 10:13 Dose: 40 mg Famotidine (Pepcid) 20 mg PEG DAILY [facility] Last Admin: 03/31/18 10:13 Dose: 20 mg Finasteride (Proscar) 5 mg PEG DAILY [facility] Last Admin: 03/31/18 10:12 Dose: 5 mg Levetiracetam (Keppra) 500 mg PO BID [facility] Last Admin: 03/31/18 10:12 Dose: 500 mg Rosuvastatin Calcium (Crestor) 2.5 mg PEG HS [facility] Last Admin: 03/30/18 21:08 Dose: 2.5 mg Scopolamine (Transderm-Scop) 1 patch TD Q3D [facility] Last Admin: 03/29/18 11:00 Dose: 1 patch Tamsulosin HCl (Flomax) 0.4 mg PEG DAILY [facility] Last Admin: 03/31/18 10:13 Dose: 0.4 mg - Labs Labs: 03/29/18 06:45 05/07/18 06:45 PT 10.6 SECONDS (9.7-12.2) 11/24/15 14:10 INR 1.0 11/24/15 14:10 APTT 25 SECONDS (21-34) 11/24/15 14:10 - Constitutional Appears: Chronically Ill - Head Exam Head Exam: ATRAUMATIC, NORMAL INSPECTION - Eye Exam Eye Exam: absent: EOMI, Scleral icterus - Neck Exam Additional comments: Trach in place - Respiratory Exam Respiratory Exam: NORMAL BREATHING PATTERN - Cardiovascular Exam Cardiovascular Exam: REGULAR RHYTHM, +S1, +S2 - GI/Abdominal Exam Additional comments: baker in place the G tube No erythema or swelling of surrounding skin - Extremities Exam Extremities Exam: Normal Inspection - Neurological Exam Neurological Exam: absent: Alert, Awake, Oriented x3 Assessment and Plan - Assessment and Plan (Free Text) Assessment: (1) Anoxic encephalopathy Assessment & Plan: * s/p cardiac arrest in 05/2015 * no acute changes in mental status. * Pt has non spontaneous movements. * patient is currently on 45cc/hr on tube feedings * via PEG * Aspirin 81mg daily * Keppra 500mg bid Status: Chronic (2) Acute Respiratory failure Assessment & Plan: * Trach in place, continue daily monitoring for secretions. No change in management at this time. * Continue with aggressive suctioning multiple times a day per respiratory therapist if secretions are thickened * Scopolamine 1 patch TD Q3D JOO * Most recent chest xray: * 09/28/17: no active disease. No significant interval change compared to. Status: Resolved (3) History of Recurrent UTIs Assessment & Plan: * ID consult: Dr. Armstrong --> help appreciated * Patient is afebrile, no apparent leukocytosis * Patient is off IV abx since 08/05/17 * patient has condom catheter and Bladder scan PRN to prevent urinary retention Status: Acute (4) History of Urinary retention Assessment & Plan: * Tamsulosin 0.4mg daily * Finasteride 5 mg daily * Bladder scan up to 3x a week to monitor residual urine * patient has had history of recurrent UTIs Status: Chronic (5) Hypokalemia Assessment & Plan: * Monitor and replete Status: Acute (6) History of Sacral ulcer Assessment & Plan: * Healed * Cont with offloading/cushioning/turning * Continue frequent turning, protective ointment and skin checks. Status: Resolved (7) History of coronary artery disease Assessment & Plan: * s/p cardiac stents on 06/13/15 * Cont ASA 81mg via PEG daily * Cont Coreg 3.125mg PEG BID * Rosuvastatin 2.5mg PO HS Status: Acute (8) History of Seizures Assessment & Plan: * Continue Keppra 500mg PEG BID for seizure prophylaxis * Monitor for activity Status: Chronic (9) Lower extremity edema Assessment & Plan: * Improved * SCDs in place * Pressure ulcer boots on b/l * Continue to monitor Status: Chronic (10) Prophylactic measure Assessment & Plan: * Pepcid 20 mg PEG daily * Lovenox 40mg SC daily * SCDs and offloading boots * continue to turn and reposition q2hrs * Continue to monitor medication administrations and clinical presentation weekly labs. 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 Ramirez was previously consulted * Baker is working well in PEG tube place * 03/31/18 * IR reconsulted: Dr. Schroeder - Spoke with Dr. Schroeder who stated he will replace a G tube on 04/01/18 or 04/02/18 - Replaced the current baker with a new baker until the G tube is placed Disposition: Patient has prolonged hospitalization due to multiple co- morbidities. Per case management, unable to place patient. <Jeison Moore - Last Filed: 03/31/18 16:12> Objective - Vital Signs/Intake and Output Vital Signs (last 24 hours): Temp Pulse Resp BP Pulse Ox 98.5 F 77 21 127/65 99 03/31/18 07:00 03/31/18 07:00 03/31/18 07:00 03/31/18 07:00 03/31/18 07:00 Intake and Output: 03/31/18 03/31/18 06:59 18:59 Intake Total 1720 Output Total 1200 500 Balance 520 -500 - Medications Medications: Current Medications Aspirin (Aspirin Chewable) 81 mg PEG DAILY [facility] Last Admin: 03/31/18 10:13 Dose: 81 mg Carvedilol (Coreg) 3.125 mg PEG BID [facility] Last Admin: 03/31/18 10:27 Dose: 3.125 mg Enoxaparin Sodium (Lovenox) 40 mg SC DAILY [facility] Last Admin: 03/31/18 10:13 Dose: 40 mg Famotidine (Pepcid) 20 mg PEG DAILY [facility] Last Admin: 03/31/18 10:13 Dose: 20 mg Finasteride (Proscar) 5 mg PEG DAILY [facility] Last Admin: 03/31/18 10:12 Dose: 5 mg Levetiracetam (Keppra) 500 mg PO BID [facility] Last Admin: 03/31/18 10:12 Dose: 500 mg Rosuvastatin Calcium (Crestor) 2.5 mg PEG HS [facility] Last Admin: 03/30/18 21:08 Dose: 2.5 mg Scopolamine (Transderm-Scop) 1 patch TD Q3D [facility] Last Admin: 03/29/18 11:00 Dose: 1 patch Tamsulosin HCl (Flomax) 0.4 mg PEG DAILY [facility] Last Admin: 03/31/18 10:13 Dose: 0.4 mg - Labs Labs: 03/29/18 06:45 03/29/18 06:45 PT 10.6 SECONDS (9.7-12.2) 11/24/15 14:10 INR 1.0 11/24/15 14:10 APTT 25 SECONDS (21-34) 11/24/15 14:10 Attending/Attestation - Attestation I have personally seen and examined this patient.: Yes I have fully participated in the care of the patient.: Yes I have reviewed all pertinent clinical information, including history, physical exam and plan: Yes Notes (Text): seen and examined by me. has clogged GT. Faley cath placed /temporary IR DR schroeder contacted. patient will go for GT/PEG By IR. Unable to reach his daughter. message left. we will get 2 physician consent. Discussed with the resident. I agree with the resident's documentation of the assessment and the plan.
[2018-03-31] MEDS: Rosuvastatin Calcium 2.5 mg Tab PEG SCH (21:12)
[2018-04-01] MEDS: Enoxaparin 40 mg Syringe SC SCH (10:05)
[2018-04-01] MEDS: levETIRAcetam 100 mg/ml (5ml) Oral Syringe PO SCH ×2 (10:06→17:53)
[2018-04-01] MEDS: Rosuvastatin Calcium 2.5 mg Tab PEG SCH (21:35)
[2018-04-02] MEDS: levETIRAcetam 100 mg/ml (5ml) Oral Syringe PO SCH ×2 (10:39→18:31)
--- NOTE | 2018-04-02 12:28 | PCM.SURG1 ---
Surgeon's Initial Post Op Note - Surgeon's Notes Surgeon: Nash Lockhart MD Purification Supervisor: None Pre-Operative Diagnosis: malfunctioning g-tube Operative Findings: replacement of gastrostomy tube Post-Operative Diagnosis: same Operation Performed: replacement of gastrostomy tube. new 18 indonesian gastrostomy tube placed. balloon filled with 10 cc sterile water Specimen/Specimens Removed: n/a Estimated Blood Loss: EBL {In ML}: 0 Date of Surgery/Procedure: 04/02/18 Time of Surgery/Procedure: 12:15
--- NOTE | 2018-04-02 15:23 | CP.PCM.PN ---
<Alisia Pappas - Last Filed: 04/02/18 15:20> Subjective - Date & Time of Evaluation Date of Evaluation: 04/02/18 Time of Evaluation: 07:00 - Subjective Subjective: Medicine Progress Note: Patient seen and examined at bedside this morning. No acute events overnight. Per nurse the patient's feeding tube which is currently a baker is clogged. Patient is non-verbal due to anoxic brain injury suffered in 2015. ROS is unattainable. Objective - Vital Signs/Intake and Output Vital Signs (last 24 hours): Temp Pulse Resp BP Pulse Ox 98.3 F 67 20 121/73 97 04/02/18 13:03 04/02/18 13:03 04/02/18 13:03 04/02/18 13:03 04/02/18 13:03 Intake and Output: 04/02/18 04/02/18 06:59 18:59 Intake Total 470 Output Total 400 Balance 70 - Medications Medications: Current Medications Aspirin (Aspirin Chewable) 81 mg PEG DAILY [facility] Carvedilol (Coreg) 3.125 mg PEG BID [facility] Last Admin: 04/02/18 10:39 Dose: Not Given Enoxaparin Sodium (Lovenox) 40 mg SC DAILY [facility] Famotidine (Pepcid) 20 mg PEG DAILY [facility] Last Admin: 04/02/18 10:40 Dose: Not Given Finasteride (Proscar) 5 mg PEG DAILY [facility] Last Admin: 04/02/18 10:40 Dose: Not Given Levetiracetam (Keppra) 500 mg PO BID [facility] Last Admin: 04/02/18 10:39 Dose: Not Given Rosuvastatin Calcium (Crestor) 2.5 mg PEG HS [facility] Last Admin: 04/01/18 21:35 Dose: 2.5 mg Scopolamine (Transderm-Scop) 1 patch TD Q3D [facility] Last Admin: 04/01/18 10:07 Dose: 1 patch Tamsulosin HCl (Flomax) 0.4 mg PEG DAILY [facility] Last Admin: 04/02/18 10:39 Dose: Not Given - Labs Labs: 03/29/18 06:45 03/29/18 06:45 PT 10.6 SECONDS (9.7-12.2) 11/24/15 14:10 INR 1.0 11/24/15 14:10 APTT 25 SECONDS (21-34) 11/24/15 14:10 - Constitutional Appears: Chronically Ill - Head Exam Head Exam: ATRAUMATIC, NORMAL INSPECTION - Eye Exam Eye Exam: absent: Scleral icterus - Neck Exam Additional comments: Trach in place - Cardiovascular Exam Cardiovascular Exam: REGULAR RHYTHM, +S1, +S2 - GI/Abdominal Exam GI & Abdominal Exam: Soft, Normal Bowel Sounds. absent: Tenderness Additional comments: G tube in place - Extremities Exam Extremities Exam: Normal Inspection - Neurological Exam Neurological Exam: absent: Alert, Awake Assessment and Plan - Assessment and Plan (Free Text) Assessment: (1) Anoxic encephalopathy Assessment & Plan: * s/p cardiac arrest in 05/2015 * no acute changes in mental status. * Pt has non spontaneous movements. * patient is currently on 45cc/hr on tube feedings * via PEG * Aspirin 81mg daily * Keppra 500mg bid Status: Chronic (2) Acute Respiratory failure Assessment & Plan: * Trach in place, continue daily monitoring for secretions. No change in management at this time. * Continue with aggressive suctioning multiple times a day per respiratory therapist if secretions are thickened * Scopolamine 1 patch TD Q3D JOO * Most recent chest xray: * 09/28/17: no active disease. No significant interval change compared to. Status: Resolved (3) History of Recurrent UTIs Assessment & Plan: * ID consult: Dr. Armstrong --> help appreciated * Patient is afebrile, no apparent leukocytosis * Patient is off IV abx since 08/05/17 * patient has condom catheter and Bladder scan PRN to prevent urinary retention Status: Acute (4) History of Urinary retention Assessment & Plan: * Tamsulosin 0.4mg daily * Finasteride 5 mg daily * Bladder scan up to 3x a week to monitor residual urine * patient has had history of recurrent UTIs Status: Chronic (5) Hypokalemia Assessment & Plan: * Monitor and replete Status: Acute (6) History of Sacral ulcer Assessment & Plan: * Healed * Cont with offloading/cushioning/turning * Continue frequent turning, protective ointment and skin checks. Status: Resolved (7) History of coronary artery disease Assessment & Plan: * s/p cardiac stents on 06/13/15 * Cont ASA 81mg via PEG daily * Cont Coreg 3.125mg PEG BID * Rosuvastatin 2.5mg PO HS Status: Acute (8) History of Seizures Assessment & Plan: * Continue Keppra 500mg PEG BID for seizure prophylaxis * Monitor for activity Status: Chronic (9) Lower extremity edema Assessment & Plan: * Improved * SCDs in place * Pressure ulcer boots on b/l * Continue to monitor Status: Chronic (10) Prophylactic measure Assessment & Plan: * Pepcid 20 mg PEG daily * Lovenox 40mg SC daily * SCDs and offloading boots * continue to turn and reposition q2hrs * Continue to monitor medication administrations and clinical presentation weekly labs. 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 Ramirez was previously consulted * Baker is working well in PEG tube place * 03/31/18 * IR reconsulted: Dr. Schroeder - Spoke with Dr. Schroeder who stated he will replace a G tube on 04/01/18 or 04/02/18 - Replaced the current baker with a new baker until the G tube is placed - s/p replacement of gastrostomy tube 04/02/18 - Lovenox and Aspirin will resume on 04/03/18 Disposition: Patient has prolonged hospitalization due to multiple co- morbidities. Per case management, unable to place patient. <Jeison Moore - Last Filed: 04/06/18 07:52> Objective - Vital Signs/Intake and Output Vital Signs (last 24 hours): Temp Pulse Resp BP Pulse Ox 98.9 F 76 20 108/71 98 04/06/18 07:40 04/06/18 07:40 04/06/18 07:40 04/06/18 07:40 04/06/18 07:40 Intake and Output: 04/06/18 04/06/18 06:59 18:59 Intake Total 1620 Output Total 650 Balance 970 - Medications Medications: Current Medications Aspirin (Aspirin Chewable) 81 mg PEG DAILY [facility] Last Admin: 05/14/18 10:04 Dose: 81 mg Carvedilol (Coreg) 3.125 mg PEG BID [facility] Last Admin: 04/05/18 18:08 Dose: 3.125 mg Enoxaparin Sodium (Lovenox) 40 mg SC DAILY [facility] Last Admin: 04/05/18 10:04 Dose: 40 mg Famotidine (Pepcid) 20 mg PEG DAILY [facility] Last Admin: 04/05/18 10:04 Dose: 20 mg Finasteride (Proscar) 5 mg PEG DAILY [facility] Last Admin: 04/05/18 10:04 Dose: 5 mg Levetiracetam (Keppra) 500 mg PO BID [facility] Last Admin: 04/05/18 18:03 Dose: 500 mg Rosuvastatin Calcium (Crestor) 2.5 mg PEG HS [facility] Last Admin: 04/05/18 22:57 Dose: 2.5 mg Scopolamine (Transderm-Scop) 1 patch TD Q3D [facility] Last Admin: 04/04/18 09:46 Dose: 1 patch Tamsulosin HCl (Flomax) 0.4 mg PEG DAILY [facility] Last Admin: 04/05/18 10:04 Dose: 0.4 mg - Labs Labs: 04/05/18 06:42 04/05/18 06:42 PT 10.6 SECONDS (9.7-12.2) 11/24/15 14:10 INR 1.0 11/24/15 14:10 APTT 25 SECONDS (21-34) 11/24/15 14:10 Attending/Attestation - Attestation I have personally seen and examined this patient.: No I have fully participated in the care of the patient.: Yes I have reviewed all pertinent clinical information, including history, physical exam and plan: Yes
[2018-04-02] MEDS: Rosuvastatin Calcium 2.5 mg Tab PEG SCH (21:14)
[2018-04-03] MEDS: Enoxaparin 40 mg Syringe SC SCH (11:13)
[2018-04-03] MEDS: levETIRAcetam 100 mg/ml (5ml) Oral Syringe PO SCH ×2 (11:14→17:12)
[2018-04-03] MEDS: Rosuvastatin Calcium 2.5 mg Tab PEG SCH (21:25)
[2018-04-04] MEDS: Enoxaparin 40 mg Syringe SC SCH (09:45)
[2018-04-04] MEDS: levETIRAcetam 100 mg/ml (5ml) Oral Syringe PO SCH ×2 (09:45→18:15)
[2018-04-04] MEDS: Rosuvastatin Calcium 2.5 mg Tab PEG SCH (22:30)
[2018-04-05 06:50] LABS: BASO % 0.3 % (0.0-2.0); EOS # 0.3 K/uL (0.0-0.7); EOS % 2.9 % (0.0-4.0); HEMOGLOBIN 11.8 g/dL (12.0-18.0); LYMPH # 2.2 K/uL (1.0-4.3); MEAN CELL VOLUME 90.2 fL (80.0-94.0); MEAN CORPUSCULAR HEMOGLOBIN 29.9 pg (27.0-31.0); MEAN CORPUSCULAR HGB CONC 33.2 g/dL (33.0-37.0); MEAN PLATELET VOLUME 9.1 fL (7.2-11.7); MONO # 0.7 K/uL (0.0-0.8); MONO % 7.9 % (0.0-10.0); NEUT % 64.9 % (50.0-75.0); RBC 3.93 Mil/uL (4.40-5.90); RED CELL DISTRIBUTION WIDTH 14.7 % (11.5-14.5); WHITE BLOOD COUNT 9.3 K/uL (4.8-10.8)
[2018-04-05 07:19] LABS: ALB/GLOB RATIO 0.8 (1.0-2.1); ALBUMIN 3.4 g/dL (3.5-5.0); ALT/SGPT 32 U/L (21-72); AST/SGOT 20 U/L (17-59); BLOOD UREA NITROGEN 12 mg/dL (9-20); GFR NON-AFRICAN AMERICAN > 60
[2018-04-05] MEDS: Enoxaparin 40 mg Syringe SC SCH (10:04)
[2018-04-05] MEDS: levETIRAcetam 100 mg/ml (5ml) Oral Syringe PO SCH ×2 (10:04→18:03)
[2018-04-05] MEDS: Rosuvastatin Calcium 2.5 mg Tab PEG SCH (22:57)
--- NOTE | 2018-04-06 07:04 | CP.PCM.PN ---
Subjective - Date & Time of Evaluation Date of Evaluation: 04/06/18 Time of Evaluation: 07:00 - Subjective Subjective: Medicine Progress Note: Patient seen and examined at bedside this morning. No acute events overnight. Patient is non-verbal due to anoxic brain injury suffered in 2014. ROS is unattainable. Objective - Vital Signs/Intake and Output Vital Signs (last 24 hours): Temp Pulse Resp BP Pulse Ox 98.1 F 70 20 120/78 98 04/05/18 23:39 04/05/18 23:39 04/05/18 23:39 04/05/18 23:39 04/05/18 23:39 Intake and Output: 04/06/18 04/06/18 06:59 18:59 Intake Total 1620 Output Total 650 Balance 970 - Medications Medications: Current Medications Aspirin (Aspirin Chewable) 81 mg PEG DAILY [facility] Last Admin: 04/05/18 10:04 Dose: 81 mg Carvedilol (Coreg) 3.125 mg PEG BID [facility] Last Admin: 04/05/18 18:08 Dose: 3.125 mg Enoxaparin Sodium (Lovenox) 40 mg SC DAILY [facility] Last Admin: 04/05/18 10:04 Dose: 40 mg Famotidine (Pepcid) 20 mg PEG DAILY [facility] Last Admin: 04/05/18 10:04 Dose: 20 mg Finasteride (Proscar) 5 mg PEG DAILY [facility] Last Admin: 04/05/18 10:04 Dose: 5 mg Levetiracetam (Keppra) 500 mg PO BID [facility] Last Admin: 04/05/18 18:03 Dose: 500 mg Rosuvastatin Calcium (Crestor) 2.5 mg PEG HS [facility] Last Admin: 04/05/18 22:57 Dose: 2.5 mg Scopolamine (Transderm-Scop) 1 patch TD Q3D [facility] Last Admin: 04/04/18 09:46 Dose: 1 patch Tamsulosin HCl (Flomax) 0.4 mg PEG DAILY [facility] Last Admin: 04/05/18 10:04 Dose: 0.4 mg - Labs Labs: 04/05/18 06:42 04/05/18 06:42 PT 10.6 SECONDS (9.7-12.2) 11/24/15 14:10 INR 1.0 11/24/15 14:10 APTT 25 SECONDS (21-34) 11/24/15 14:10 - Constitutional Appears: No Acute Distress, Chronically Ill - Head Exam Head Exam: ATRAUMATIC, NORMAL INSPECTION - Eye Exam Eye Exam: absent: Scleral icterus - Neck Exam Additional comments: Trach in place - Respiratory Exam Respiratory Exam: NORMAL BREATHING PATTERN - Cardiovascular Exam Cardiovascular Exam: REGULAR RHYTHM, +S1, +S2 - GI/Abdominal Exam GI & Abdominal Exam: Soft Additional comments: G tube in place - Extremities Exam Extremities Exam: Normal Inspection - Neurological Exam Neurological Exam: absent: Alert, Awake, Oriented x3 Assessment and Plan - Assessment and Plan (Free Text) Assessment: (1) Anoxic encephalopathy Assessment & Plan: * s/p cardiac arrest in 05/2015 * no acute changes in mental status. * Pt has non spontaneous movements. * patient is currently on 45cc/hr on tube feedings * via PEG * Aspirin 81mg daily * Keppra 500mg bid Status: Chronic (2) Acute Respiratory failure Assessment & Plan: * Trach in place, continue daily monitoring for secretions. No change in management at this time. * Continue with aggressive suctioning multiple times a day per respiratory therapist if secretions are thickened * Scopolamine 1 patch TD Q3D [facility]OO * Most recent chest xray: * 09/28/17: no active disease. No significant interval change compared to. Status: Resolved (3) History of Recurrent UTIs Assessment & Plan: * ID consult: Dr. Armstrong --> help appreciated * Patient is afebrile, no apparent leukocytosis * Patient is off IV abx since 08/05/17 * patient has condom catheter and Bladder scan PRN to prevent urinary retention Status: Acute (4) History of Urinary retention Assessment & Plan: * Tamsulosin 0.4mg daily * Finasteride 5 mg daily * Bladder scan up to 3x a week to monitor residual urine * patient has had history of recurrent UTIs Status: Chronic (5) Hypokalemia Assessment & Plan: * Monitor and replete Status: Acute (6) History of Sacral ulcer Assessment & Plan: * Healed * Cont with offloading/cushioning/turning * Continue frequent turning, protective ointment and skin checks. Status: Resolved (7) History of coronary artery disease Assessment & Plan: * s/p cardiac stents on 06/13/15 * Cont ASA 81mg via PEG daily * Cont Coreg 3.125mg PEG BID * Rosuvastatin 2.5mg PO HS Status: Acute (8) History of Seizures Assessment & Plan: * Continue Keppra 500mg PEG BID for seizure prophylaxis * Monitor for activity Status: Chronic (9) Lower extremity edema Assessment & Plan: * Improved * SCDs in place * Pressure ulcer boots on b/l * Continue to monitor Status: Chronic (10) Prophylactic measure Assessment & Plan: * Pepcid 20 mg PEG daily * Lovenox 40mg SC daily * SCDs and offloading boots * continue to turn and reposition q2hrs * Continue to monitor medication administrations and clinical presentation weekly labs. 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 Ramirez was previously consulted * Baker is working well in PEG tube place * 03/31/18 * IR reconsulted: Dr. Schroeder - Spoke with Dr. Schroeder who stated he will replace a G tube on 04/01/18 or 04/02/18 - Replaced the current baker with a new baker until the G tube is placed - s/p replacement of gastrostomy tube 04/02/18 - Lovenox and Aspirin will resume on 04/03/18 Disposition: Patient has prolonged hospitalization due to multiple co- morbidities. Per case management, unable to place patient.
[2018-04-06] MEDS: levETIRAcetam 100 mg/ml (5ml) Oral Syringe PO SCH ×2 (09:53→17:33)
[2018-04-06] MEDS: Enoxaparin 40 mg Syringe SC SCH (09:54)
--- NOTE | 2018-04-06 13:11 | SPECPROC ---
PROCEDURE: GASTROSTOMY TUBE REPLACEMENT CLINICAL HISTORY: 67-year-old male referred for gastrostomy tube placement. COMPARISON: Gastrostomy tube replacement procedure performed 01/06/2017. PROCEDURE: 1. Replacement of gastrostomy tube under fluoroscopic guidance PRE-PROCEDURE FINDINGS: 1. Indwelling Yoo catheter with tip in the stomach POST-PROCEDURE FINDINGS: 1. New 18 Bulgarian gastrostomy tube with balloon and tip in the stomach. INTERVENTIONAL RADIOLOGIST: Nash Lockhart M.D. (the attending was present for the entire procedure) ANESTHESIA: None. MEDICATION: Lidocaine 1% for local subcutaneous analgesia. COMPLICATIONS: None. RADIATION DOSE: Fluoroscopy Time: 1.0 minutes DAP: 18 mGy PROCEDURE DESCRIPTION AND FINDINGS: The risks, benefits, alternatives and possible complications of the procedure were fully discussed; all questions were answered and informed consent was obtained. The patient was brought into the interventional suite and a pre-procedure 'time-out' was performed. The patient was placed on the fluoroscopy table in the supine position. The epigastrium was prepped and draped in the usual sterile fashion. Maximum sterile barrier precautions were maintained throughout the entire procedure. Preliminary fluoroscopic image demonstrated an indwelling Yoo catheter. Gentle contrast injection confirmed intragastric location of indwelling Yoo catheter. The Yoo catheter balloon was deflated and removed over 0.035 guidewire. A new 18 Bulgarian gastrostomy tube was advanced over the guidewire. The gastrostomy tube balloon was inflated with 10 cc sterile water. Contrast injection via the new gastrostomy tube confirmed intragastric location. The patient tolerated the procedure well without immediate post-procedure complications and was transferred to the interventional radiology recovery area in stable condition. IMPRESSION: Successful replacement of 18 Bulgarian gastrostomy tube.
[2018-04-06] MEDS: Rosuvastatin Calcium 2.5 mg Tab PEG SCH (21:17)
[2018-04-07] MEDS: Enoxaparin 40 mg Syringe SC SCH (10:03)
[2018-04-07] MEDS: levETIRAcetam 100 mg/ml (5ml) Oral Syringe PO SCH ×2 (10:04→17:35)
[2018-04-07] MEDS: Rosuvastatin Calcium 2.5 mg Tab PEG SCH (21:22)
--- NOTE | 2018-04-08 07:30 | CP.PCM.PN ---
Subjective - Date & Time of Evaluation Date of Evaluation: 04/08/18 Time of Evaluation: 07:00 - Subjective Subjective: Medicine Progress Note: Patient seen and examined at bedside this morning. No acute events overnight. Patient is non-verbal due to anoxic brain injury suffered in 2014. ROS is unattainable. Objective - Vital Signs/Intake and Output Vital Signs (last 24 hours): Temp Pulse Resp BP Pulse Ox 98.3 F 65 20 114/78 97 04/08/18 00:00 04/08/18 00:00 04/08/18 00:00 04/08/18 00:00 04/08/18 00:00 Intake and Output: 04/08/18 04/08/18 06:59 18:59 Intake Total 1620 Output Total 650 Balance 970 - Medications Medications: Current Medications Aspirin (Aspirin Chewable) 81 mg PEG DAILY [facility] Last Admin: 04/07/18 10:04 Dose: 81 mg Carvedilol (Coreg) 3.125 mg PEG BID [facility] Last Admin: 04/07/18 17:35 Dose: 3.125 mg Enoxaparin Sodium (Lovenox) 40 mg SC DAILY [facility] Last Admin: 04/07/18 10:03 Dose: 40 mg Famotidine (Pepcid) 20 mg PEG DAILY [facility] Last Admin: 04/07/18 10:04 Dose: 20 mg Finasteride (Proscar) 5 mg PEG DAILY [facility] Last Admin: 04/07/18 10:04 Dose: 5 mg Levetiracetam (Keppra) 500 mg PO BID [facility] Last Admin: 04/07/18 17:35 Dose: 500 mg Rosuvastatin Calcium (Crestor) 2.5 mg PEG HS [facility] Last Admin: 04/07/18 21:22 Dose: 2.5 mg Scopolamine (Transderm-Scop) 1 patch TD Q3D [facility] Last Admin: 04/07/18 10:04 Dose: 1 patch Tamsulosin HCl (Flomax) 0.4 mg PEG DAILY [facility] Last Admin: 04/07/18 10:07 Dose: 0.4 mg - Labs Labs: 04/05/18 06:42 04/05/18 06:42 PT 10.6 SECONDS (9.7-12.2) 11/24/15 14:10 INR 1.0 11/24/15 14:10 APTT 25 SECONDS (21-34) 11/24/15 14:10 - Constitutional Appears: No Acute Distress, Chronically Ill - Head Exam Head Exam: ATRAUMATIC, NORMAL INSPECTION - Eye Exam Eye Exam: absent: Scleral icterus - Neck Exam Additional comments: trach in place - Respiratory Exam Respiratory Exam: NORMAL BREATHING PATTERN - Cardiovascular Exam Cardiovascular Exam: REGULAR RHYTHM, +S1, +S2 - GI/Abdominal Exam GI & Abdominal Exam: Soft Additional comments: G tube in place - Extremities Exam Extremities Exam: Normal Inspection - Neurological Exam Neurological Exam: absent: Alert, Awake Assessment and Plan - Assessment and Plan (Free Text) Assessment: (1) Anoxic encephalopathy Assessment & Plan: * s/p cardiac arrest in 05/2015 * no acute changes in mental status. * Pt has non spontaneous movements. * patient is currently on 45cc/hr on tube feedings * via PEG * Aspirin 81mg daily * Keppra 500mg bid Status: Chronic (2) Acute Respiratory failure Assessment & Plan: * Trach in place, continue daily monitoring for secretions. No change in management at this time. * Continue with aggressive suctioning multiple times a day per respiratory therapist if secretions are thickened * Scopolamine 1 patch TD Q3D [facility] * Most recent chest xray: * 09/28/17: no active disease. No significant interval change compared to. Status: Resolved (3) History of Recurrent UTIs Assessment & Plan: * ID consult: Dr. Armstrong --> help appreciated * Patient is afebrile, no apparent leukocytosis * Patient is off IV abx since 08/05/17 * patient has condom catheter and Bladder scan PRN to prevent urinary retention Status: Acute (4) History of Urinary retention Assessment & Plan: * Tamsulosin 0.4mg daily * Finasteride 5 mg daily * Bladder scan up to 3x a week to monitor residual urine * patient has had history of recurrent UTIs Status: Chronic (5) Hypokalemia Assessment & Plan: * Monitor and replete Status: Acute (6) History of Sacral ulcer Assessment & Plan: * Healed * Cont with offloading/cushioning/turning * Continue frequent turning, protective ointment and skin checks. Status: Resolved (7) History of coronary artery disease Assessment & Plan: * s/p cardiac stents on 06/13/15 * Cont ASA 81mg via PEG daily * Cont Coreg 3.125mg PEG BID * Rosuvastatin 2.5mg PO HS Status: Acute (8) History of Seizures Assessment & Plan: * Continue Keppra 500mg PEG BID for seizure prophylaxis * Monitor for activity Status: Chronic (9) Lower extremity edema Assessment & Plan: * Improved * SCDs in place * Pressure ulcer boots on b/l * Continue to monitor Status: Chronic (10) Prophylactic measure Assessment & Plan: * Pepcid 20 mg PEG daily * Lovenox 40mg SC daily * SCDs and offloading boots * continue to turn and reposition q2hrs * Continue to monitor medication administrations and clinical presentation weekly labs. 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 Ramirez was previously consulted * Baker is working well in PEG tube place * 03/31/18 * IR reconsulted: Dr. Schroeder - Spoke with Dr. Schroeder who stated he will replace a G tube on 04/01/18 or 04/02/18 - Replaced the current baker with a new baker until the G tube is placed - s/p replacement of gastrostomy tube 04/02/18 - Lovenox and Aspirin will resume on 04/03/18 Disposition: Patient has prolonged hospitalization due to multiple co- morbidities. Per case management, unable to place patient
[2018-04-08] MEDS: levETIRAcetam 100 mg/ml (5ml) Oral Syringe PO SCH ×2 (09:43→17:27)
[2018-04-08] MEDS: Enoxaparin 40 mg Syringe SC SCH (09:44)
[2018-04-08] MEDS: Rosuvastatin Calcium 2.5 mg Tab PEG SCH (21:28)
[2018-04-09] MEDS: Enoxaparin 40 mg Syringe SC SCH (09:48)
[2018-04-09] MEDS: levETIRAcetam 100 mg/ml (5ml) Oral Syringe PO SCH ×2 (09:48→17:24)
[2018-04-09] MEDS: Rosuvastatin Calcium 2.5 mg Tab PEG SCH (21:30)
[2018-04-10] MEDS: Enoxaparin 40 mg Syringe SC SCH (09:04)
[2018-04-10] MEDS: levETIRAcetam 100 mg/ml (5ml) Oral Syringe PO SCH ×2 (09:05→18:35)
[2018-04-10] MEDS: Rosuvastatin Calcium 2.5 mg Tab PEG SCH (21:48)
[2018-04-11] MEDS: Enoxaparin 40 mg Syringe SC SCH (09:24)
[2018-04-11] MEDS: levETIRAcetam 100 mg/ml (5ml) Oral Syringe PO SCH ×2 (09:24→17:29)
[2018-04-11] MEDS: Rosuvastatin Calcium 2.5 mg Tab PEG SCH (21:14)
[2018-04-12 07:20] LABS: BASO % 0.3 % (0.0-2.0); EOS # 0.3 K/uL (0.0-0.7); EOS % 3.5 % (0.0-4.0); HEMOGLOBIN 11.7 g/dL (12.0-18.0); LYMPH # 2.3 K/uL (1.0-4.3); LYMPH % 27.8 % (20.0-40.0); MEAN CELL VOLUME 88.6 fL (80.0-94.0); MEAN CORPUSCULAR HEMOGLOBIN 29.7 pg (27.0-31.0); MEAN CORPUSCULAR HGB CONC 33.6 g/dL (33.0-37.0); MEAN PLATELET VOLUME 9.3 fL (7.2-11.7); MONO # 0.8 K/uL (0.0-0.8); MONO % 9.4 % (0.0-10.0); NEUT # 4.8 K/uL (1.8-7.0); RBC 3.94 Mil/uL (4.40-5.90); RED CELL DISTRIBUTION WIDTH 14.9 % (11.5-14.5); WHITE BLOOD COUNT 8.2 K/uL (4.8-10.8)
[2018-04-12 07:40] LABS: ALBUMIN 3.8 g/dL (3.5-5.0); ALT/SGPT 23 U/L (21-72); AST/SGOT 17 U/L (17-59); BLOOD UREA NITROGEN 11 mg/dL (9-20); CALCIUM 8.6 mg/dl (8.6-10.4); GFR NON-AFRICAN AMERICAN > 60
[2018-04-12] MEDS: Enoxaparin 40 mg Syringe SC SCH (10:39)
[2018-04-12] MEDS: levETIRAcetam 100 mg/ml (5ml) Oral Syringe PO SCH ×2 (10:39→17:32)
[2018-04-12] MEDS: Rosuvastatin Calcium 2.5 mg Tab PEG SCH (21:15)
[2018-04-13] MEDS: Enoxaparin 40 mg Syringe SC SCH (09:57)
[2018-04-13] MEDS: levETIRAcetam 100 mg/ml (5ml) Oral Syringe PO SCH ×2 (09:58→17:39)
--- NOTE | 2018-04-13 10:27 | CP.PCM.PN ---
<Alisia Pappas - Last Filed: 04/13/18 14:51> Subjective - Date & Time of Evaluation Date of Evaluation: 04/13/18 Time of Evaluation: 07:00 - Subjective Subjective: Medicine Progress Note: Patient seen and examined at bedside this morning. No acute events overnight. Patient is non-verbal due to anoxic brain injury suffered in 2014. ROS is unattainable. Objective - Vital Signs/Intake and Output Vital Signs (last 24 hours): Temp Pulse Resp BP Pulse Ox 98.1 F 68 20 109/69 97 04/13/18 08:05 04/13/18 08:05 04/13/18 08:05 04/13/18 08:05 04/13/18 08:05 Intake and Output: 04/13/18 04/13/18 06:59 18:59 Intake Total 1720 Output Total 1200 Balance 520 - Medications Medications: Current Medications Aspirin (Aspirin Chewable) 81 mg PEG DAILY [facility] Last Admin: 04/13/18 09:58 Dose: 81 mg Carvedilol (Coreg) 3.125 mg PEG BID [facility] Last Admin: 04/13/18 09:58 Dose: 3.125 mg Enoxaparin Sodium (Lovenox) 40 mg SC DAILY [facility] Last Admin: 04/13/18 09:57 Dose: 40 mg Famotidine (Pepcid) 20 mg PEG DAILY [facility] Last Admin: 04/13/18 09:59 Dose: 20 mg Finasteride (Proscar) 5 mg PEG DAILY [facility] Last Admin: 04/13/18 09:58 Dose: 5 mg Levetiracetam (Keppra) 500 mg PO BID [facility] Last Admin: 04/13/18 09:58 Dose: 500 mg Rosuvastatin Calcium (Crestor) 2.5 mg PEG HS [facility] Last Admin: 04/12/18 21:15 Dose: 2.5 mg Scopolamine (Transderm-Scop) 1 patch TD Q3D [facility] Last Admin: 04/13/18 09:58 Dose: 1 patch Tamsulosin HCl (Flomax) 0.4 mg PEG DAILY [facility] Last Admin: 04/13/18 09:58 Dose: 0.4 mg - Labs Labs: 04/12/18 06:57 04/12/18 06:57 PT 10.6 SECONDS (9.7-12.2) 11/24/15 14:10 INR 1.0 11/24/15 14:10 APTT 25 SECONDS (21-34) 11/24/15 14:10 - Constitutional Appears: No Acute Distress, Chronically Ill - Head Exam Head Exam: NORMAL INSPECTION - Eye Exam Eye Exam: absent: Scleral icterus - Neck Exam Additional comments: trach in place - Respiratory Exam Respiratory Exam: NORMAL BREATHING PATTERN - GI/Abdominal Exam Additional comments: G tube in place - Neurological Exam Neurological Exam: absent: Alert, Awake Assessment and Plan - Assessment and Plan (Free Text) Assessment: (1) Anoxic encephalopathy Assessment & Plan: * s/p cardiac arrest in 05/2015 * no acute changes in mental status. * Pt has non spontaneous movements. * patient is currently on 45cc/hr on tube feedings * via PEG * Aspirin 81mg daily * Keppra 500mg bid Status: Chronic (2) Acute Respiratory failure Assessment & Plan: * Trach in place, continue daily monitoring for secretions. No change in management at this time. * Continue with aggressive suctioning multiple times a day per respiratory therapist if secretions are thickened * Scopolamine 1 patch TD Q3D [facility] * Most recent chest xray: * 09/28/17: no active disease. No significant interval change compared to. Status: Resolved (3) History of Recurrent UTIs Assessment & Plan: * ID consult: Dr. Armstrong --> help appreciated * Patient is afebrile, no apparent leukocytosis * Patient is off IV abx since 08/05/17 * patient has condom catheter and Bladder scan PRN to prevent urinary retention Status: Acute (4) History of Urinary retention Assessment & Plan: * Tamsulosin 0.4mg daily * Finasteride 5 mg daily * Bladder scan up to 3x a week to monitor residual urine * patient has had history of recurrent UTIs Status: Chronic (5) Hypokalemia Assessment & Plan: * Monitor and replete Status: Acute (6) History of Sacral ulcer Assessment & Plan: * Healed * Cont with offloading/cushioning/turning * Continue frequent turning, protective ointment and skin checks. Status: Resolved (7) History of coronary artery disease Assessment & Plan: * s/p cardiac stents on 06/13/15 * Cont ASA 81mg via PEG daily * Cont Coreg 3.125mg PEG BID * Rosuvastatin 2.5mg PO HS Status: Acute (8) History of Seizures Assessment & Plan: * Continue Keppra 500mg PEG BID for seizure prophylaxis * Monitor for activity Status: Chronic (9) Lower extremity edema Assessment & Plan: * Improved * SCDs in place * Pressure ulcer boots on b/l * Continue to monitor Status: Chronic (10) Prophylactic measure Assessment & Plan: * Pepcid 20 mg PEG daily * Lovenox 40mg SC daily * SCDs and offloading boots * continue to turn and reposition q2hrs * Continue to monitor medication administrations and clinical presentation weekly labs. 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 Ramirez was previously consulted * Baker is working well in PEG tube place * 03/31/18 * IR reconsulted: Dr. Schroeder - Spoke with Dr. Schroeder who stated he will replace a G tube on 04/01/18 or 04/02/18 - Replaced the current baker with a new baker until the G tube is placed - s/p replacement of gastrostomy tube 04/02/18 - Lovenox and Aspirin will resume on 04/03/18 Disposition: Patient has prolonged hospitalization due to multiple co- morbidities. Per case management, unable to place patient <Jeison Moore - Last Filed: 04/13/18 15:42> Objective - Vital Signs/Intake and Output Vital Signs (last 24 hours): Temp Pulse Resp BP Pulse Ox 98.3 F 85 20 98/64 L 98 04/13/18 15:36 04/13/18 15:36 04/13/18 15:36 04/13/18 15:36 04/13/18 15:36 Intake and Output: 04/13/18 04/13/18 06:59 18:59 Intake Total 1720 860 Output Total 1200 400 Balance 520 460 - Medications Medications: Current Medications Aspirin (Aspirin Chewable) 81 mg PEG DAILY [facility] Last Admin: 04/13/18 09:58 Dose: 81 mg Carvedilol (Coreg) 3.125 mg PEG BID [facility] Last Admin: 04/13/18 09:58 Dose: 3.125 mg Enoxaparin Sodium (Lovenox) 40 mg SC DAILY [facility] Last Admin: 04/13/18 09:57 Dose: 40 mg Famotidine (Pepcid) 20 mg PEG DAILY [facility] Last Admin: 04/13/18 09:59 Dose: 20 mg Finasteride (Proscar) 5 mg PEG DAILY [facility] Last Admin: 04/13/18 09:58 Dose: 5 mg Levetiracetam (Keppra) 500 mg PO BID [facility] Last Admin: 04/13/18 09:58 Dose: 500 mg Rosuvastatin Calcium (Crestor) 2.5 mg PEG HS [facility] Last Admin: 04/12/18 21:15 Dose: 2.5 mg Scopolamine (Transderm-Scop) 1 patch TD Q3D [facility] Last Admin: 04/13/18 09:58 Dose: 1 patch Tamsulosin HCl (Flomax) 0.4 mg PEG DAILY [facility] Last Admin: 04/13/18 09:58 Dose: 0.4 mg - Labs Labs: 04/12/18 06:57 04/12/18 06:57 PT 10.6 SECONDS (9.7-12.2) 11/24/15 14:10 INR 1.0 11/24/15 14:10 APTT 25 SECONDS (21-34) 11/24/15 14:10 Attending/Attestation - Attestation I have personally seen and examined this patient.: Yes I have fully participated in the care of the patient.: Yes I have reviewed all pertinent clinical information, including history, physical exam and plan: Yes Notes (Text): seen and examined.no changes d/w the resident. agrees with the notes 04/13/18 15:42
[2018-04-13] MEDS: Rosuvastatin Calcium 2.5 mg Tab PEG SCH (21:11)
[2018-04-14] MEDS: levETIRAcetam 100 mg/ml (5ml) Oral Syringe PO SCH ×2 (09:40→17:42)
[2018-04-14] MEDS: Enoxaparin 40 mg Syringe SC SCH (09:40)
[2018-04-14] MEDS: Rosuvastatin Calcium 2.5 mg Tab PEG SCH (21:02)
--- NOTE | 2018-04-15 07:00 | CP.PCM.PN ---
<Alisia Pappas - Last Filed: 04/15/18 11:10> Subjective - Date & Time of Evaluation Date of Evaluation: 04/15/18 Time of Evaluation: 07:00 - Subjective Subjective: Medicine Progress Note: Patient seen and examined at bedside this morning. No acute events overnight. Patient is non-verbal due to anoxic brain injury suffered in 2014. ROS is unattainable. Objective - Vital Signs/Intake and Output Vital Signs (last 24 hours): Temp Pulse Resp BP Pulse Ox 98.3 F 81 20 102/61 96 04/14/18 23:42 04/14/18 23:42 04/14/18 23:42 04/14/18 23:42 04/14/18 23:42 Intake and Output: 04/15/18 04/15/18 06:59 18:59 Intake Total 1620 Output Total 950 Balance 670 - Medications Medications: Current Medications Aspirin (Aspirin Chewable) 81 mg PEG DAILY [facility] Last Admin: 04/14/18 09:40 Dose: 81 mg Carvedilol (Coreg) 3.125 mg PEG BID [facility] Last Admin: 04/14/18 17:42 Dose: 3.125 mg Enoxaparin Sodium (Lovenox) 40 mg SC DAILY [facility] Last Admin: 04/14/18 09:40 Dose: 40 mg Famotidine (Pepcid) 20 mg PEG DAILY [facility] Last Admin: 04/14/18 09:40 Dose: 20 mg Finasteride (Proscar) 5 mg PEG DAILY [facility] Last Admin: 04/14/18 09:40 Dose: 5 mg Levetiracetam (Keppra) 500 mg PO BID [facility] Last Admin: 04/14/18 17:42 Dose: 500 mg Rosuvastatin Calcium (Crestor) 2.5 mg PEG HS [facility] Last Admin: 04/14/18 21:02 Dose: 2.5 mg Scopolamine (Transderm-Scop) 1 patch TD Q3D [facility] Last Admin: 04/13/18 09:58 Dose: 1 patch Tamsulosin HCl (Flomax) 0.4 mg PEG DAILY [facility] Last Admin: 04/14/18 09:40 Dose: 0.4 mg - Labs Labs: 04/12/18 06:57 04/12/18 06:57 PT 10.6 SECONDS (9.7-12.2) 11/24/15 14:10 INR 1.0 11/24/15 14:10 APTT 25 SECONDS (21-34) 11/24/15 14:10 - Constitutional Appears: No Acute Distress, Chronically Ill - Head Exam Head Exam: ATRAUMATIC, NORMOCEPHALIC - Eye Exam Eye Exam: absent: Scleral icterus - Neck Exam Additional comments: trach in place - Respiratory Exam Respiratory Exam: NORMAL BREATHING PATTERN - Cardiovascular Exam Cardiovascular Exam: REGULAR RHYTHM, +S1, +S2 - GI/Abdominal Exam Additional comments: G tube in place - clean/dry/intact - Neurological Exam Neurological Exam: absent: Alert, Awake Assessment and Plan - Assessment and Plan (Free Text) Assessment: (1) Anoxic encephalopathy Assessment & Plan: * s/p cardiac arrest in 05/2015 * no acute changes in mental status. * Pt has non spontaneous movements. * patient is currently on 45cc/hr on tube feedings * via PEG * Aspirin 81mg daily * Keppra 500mg bid Status: Chronic (2) Acute Respiratory failure Assessment & Plan: * Trach in place, continue daily monitoring for secretions. No change in management at this time. * Continue with aggressive suctioning multiple times a day per respiratory therapist if secretions are thickened * Scopolamine 1 patch TD Q3D [facility] * Most recent chest xray: * 09/28/17: no active disease. No significant interval change compared to. Status: Resolved (3) History of Recurrent UTIs Assessment & Plan: * ID consult: Dr. Armstrong --> help appreciated * Patient is afebrile, no apparent leukocytosis * Patient is off IV abx since 08/05/17 * patient has condom catheter and Bladder scan PRN to prevent urinary retention Status: Acute (4) History of Urinary retention Assessment & Plan: * Tamsulosin 0.4mg daily * Finasteride 5 mg daily * Bladder scan up to 3x a week to monitor residual urine * patient has had history of recurrent UTIs Status: Chronic (5) Hypokalemia Assessment & Plan: * Monitor and replete Status: Acute (6) History of Sacral ulcer Assessment & Plan: * Healed * Cont with offloading/cushioning/turning * Continue frequent turning, protective ointment and skin checks. Status: Resolved (7) History of coronary artery disease Assessment & Plan: * s/p cardiac stents on 06/13/15 * Cont ASA 81mg via PEG daily * Cont Coreg 3.125mg PEG BID * Rosuvastatin 2.5mg PO HS Status: Acute (8) History of Seizures Assessment & Plan: * Continue Keppra 500mg PEG BID for seizure prophylaxis * Monitor for activity Status: Chronic (9) Lower extremity edema Assessment & Plan: * Improved * SCDs in place * Pressure ulcer boots on b/l * Continue to monitor Status: Chronic (10) Prophylactic measure Assessment & Plan: * Pepcid 20 mg PEG daily * Lovenox 40mg SC daily * SCDs and offloading boots * continue to turn and reposition q2hrs * Continue to monitor medication administrations and clinical presentation weekly labs. 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 Ramirez was previously consulted * Baker is working well in PEG tube place * 03/31/18 * IR reconsulted: Dr. Schroeder - Spoke with Dr. Schroeder who stated he will replace a G tube on 04/01/18 or 04/02/18 - Replaced the current baker with a new baker until the G tube is placed - s/p replacement of gastrostomy tube 04/02/18 - Lovenox and Aspirin will resume on 04/03/18 Disposition: Patient has prolonged hospitalization due to multiple co- morbidities. Per case management, unable to place patient <Jeison Moore - Last Filed: 04/19/18 22:36> Objective - Vital Signs/Intake and Output Vital Signs (last 24 hours): Temp Pulse Resp BP Pulse Ox 98.7 F 72 20 96/64 L 100 04/19/18 16:00 04/19/18 16:00 04/19/18 16:00 04/19/18 16:00 04/19/18 16:00 Intake and Output: 04/19/18 04/20/18 18:59 06:59 Intake Total 860 Output Total 400 Balance 460 - Medications Medications: Current Medications Aspirin (Aspirin Chewable) 81 mg PEG DAILY [facility] Last Admin: 04/19/18 10:58 Dose: 81 mg Carvedilol (Coreg) 3.125 mg PEG BID [facility] Last Admin: 04/19/18 17:58 Dose: 3.125 mg Enoxaparin Sodium (Lovenox) 40 mg SC DAILY [facility] Last Admin: 04/19/18 10:58 Dose: 40 mg Famotidine (Pepcid) 20 mg PEG DAILY [facility] Last Admin: 04/19/18 10:58 Dose: 20 mg Finasteride (Proscar) 5 mg PEG DAILY [facility] Last Admin: 04/19/18 10:58 Dose: 5 mg Levetiracetam (Keppra) 500 mg PO BID [facility] Last Admin: 04/19/18 17:59 Dose: 500 mg Rosuvastatin Calcium (Crestor) 2.5 mg PEG HS [facility] Last Admin: 04/19/18 21:18 Dose: 2.5 mg Scopolamine (Transderm-Scop) 1 patch TD Q3D [facility] Last Admin: 04/19/18 10:57 Dose: 1 patch Tamsulosin HCl (Flomax) 0.4 mg PEG DAILY [facility] Last Admin: 04/19/18 10:58 Dose: 0.4 mg - Labs Labs: 04/19/18 08:07 04/19/18 08:07 PT 10.6 SECONDS (9.7-12.2) 11/24/15 14:10 INR 1.0 11/24/15 14:10 APTT 25 SECONDS (21-34) 11/24/15 14:10 Attending/Attestation - Attestation I have personally seen and examined this patient.: No I have fully participated in the care of the patient.: Yes I have reviewed all pertinent clinical information, including history, physical exam and plan: Yes
[2018-04-15] MEDS: Enoxaparin 40 mg Syringe SC SCH (10:18)
[2018-04-15] MEDS: levETIRAcetam 100 mg/ml (5ml) Oral Syringe PO SCH ×2 (10:18→18:48)
[2018-04-15] MEDS: Rosuvastatin Calcium 2.5 mg Tab PEG SCH (21:37)
[2018-04-16] MEDS: levETIRAcetam 100 mg/ml (5ml) Oral Syringe PO SCH ×2 (10:02→18:03)
[2018-04-16] MEDS: Enoxaparin 40 mg Syringe SC SCH (10:02)
[2018-04-16] MEDS: Rosuvastatin Calcium 2.5 mg Tab PEG SCH (22:00)
[2018-04-17] MEDS: Enoxaparin 40 mg Syringe SC SCH (10:12)
[2018-04-17] MEDS: levETIRAcetam 100 mg/ml (5ml) Oral Syringe PO SCH ×2 (10:12→18:45)
[2018-04-17] MEDS: Rosuvastatin Calcium 2.5 mg Tab PEG SCH (21:38)
[2018-04-18] MEDS: levETIRAcetam 100 mg/ml (5ml) Oral Syringe PO SCH ×2 (10:57→18:30)
[2018-04-18] MEDS: Enoxaparin 40 mg Syringe SC SCH (10:58)
[2018-04-18] MEDS: Rosuvastatin Calcium 2.5 mg Tab PEG SCH (21:17)
[2018-04-19 08:19] LABS: BASO # 0.1 K/uL (0.0-0.2); BASO % 0.7 % (0.0-2.0); EOS # 0.4 K/uL (0.0-0.7); EOS % 3.7 % (0.0-4.0); HEMOGLOBIN 12.3 g/dL (12.0-18.0); LYMPH # 2.9 K/uL (1.0-4.3); LYMPH % 29.6 % (20.0-40.0); MEAN CELL VOLUME 89.4 fL (80.0-94.0); MEAN CORPUSCULAR HEMOGLOBIN 29.8 pg (27.0-31.0); MEAN CORPUSCULAR HGB CONC 33.4 g/dL (33.0-37.0); MEAN PLATELET VOLUME 9.6 fL (7.2-11.7); MONO # 0.9 K/uL (0.0-0.8); MONO % 8.8 % (0.0-10.0); NEUT # 5.6 K/uL (1.8-7.0); NEUT % 57.2 % (50.0-75.0); NRBC % 0.1 % (0.0-2.0); RBC 4.13 Mil/uL (4.40-5.90); RED CELL DISTRIBUTION WIDTH 14.8 % (11.5-14.5); WHITE BLOOD COUNT 9.7 K/uL (4.8-10.8)
[2018-04-19 08:37] LABS: ALB/GLOB RATIO 0.8 (1.0-2.1); ALBUMIN 3.5 g/dL (3.5-5.0); ALT/SGPT 34 U/L (21-72); AST/SGOT 22 U/L (17-59); BLOOD UREA NITROGEN 13 mg/dL (9-20); CALCIUM 8.6 mg/dl (8.6-10.4); GFR NON-AFRICAN AMERICAN > 60
[2018-04-19] MEDS: Enoxaparin 40 mg Syringe SC SCH (10:58)
[2018-04-19] MEDS: levETIRAcetam 100 mg/ml (5ml) Oral Syringe PO SCH ×2 (10:58→17:59)
[2018-04-19] MEDS: Rosuvastatin Calcium 2.5 mg Tab PEG SCH (21:18)
--- NOTE | 2018-04-20 07:08 | CP.PCM.PN ---
Subjective - Date & Time of Evaluation Date of Evaluation: 04/20/18 Time of Evaluation: 07:00 - Subjective Subjective: Medicine Progress Note: Patient seen and examined at bedside this morning. No acute events overnight. Patient is non-verbal due to anoxic brain injury suffered in 2014. ROS is unattainable. Objective - Vital Signs/Intake and Output Vital Signs (last 24 hours): Temp Pulse Resp BP Pulse Ox 98.9 F 80 20 105/61 97 04/19/18 23:34 04/19/18 23:34 04/19/18 23:34 04/19/18 23:34 04/19/18 23:34 Intake and Output: 04/20/18 04/20/18 06:59 18:59 Intake Total 860 Output Total 400 Balance 460 - Medications Medications: Current Medications Aspirin (Aspirin Chewable) 81 mg PEG DAILY REPLACED BY [facility] Last Admin: 04/19/18 10:58 Dose: 81 mg Carvedilol (Coreg) 3.125 mg PEG BID REPLACED BY [facility] Last Admin: 04/19/18 17:58 Dose: 3.125 mg Enoxaparin Sodium (Lovenox) 40 mg SC DAILY REPLACED BY [facility] Last Admin: 04/19/18 10:58 Dose: 40 mg Famotidine (Pepcid) 20 mg PEG DAILY REPLACED BY [facility] Last Admin: 04/19/18 10:58 Dose: 20 mg Finasteride (Proscar) 5 mg PEG DAILY REPLACED BY [facility] Last Admin: 04/19/18 10:58 Dose: 5 mg Levetiracetam (Keppra) 500 mg PO BID REPLACED BY [facility] Last Admin: 04/19/18 17:59 Dose: 500 mg Rosuvastatin Calcium (Crestor) 2.5 mg PEG HS REPLACED BY [facility] Last Admin: 04/19/18 21:18 Dose: 2.5 mg Scopolamine (Transderm-Scop) 1 patch TD Q3D REPLACED BY [facility] Last Admin: 04/19/18 10:57 Dose: 1 patch Tamsulosin HCl (Flomax) 0.4 mg PEG DAILY REPLACED BY [facility] Last Admin: 04/19/18 10:58 Dose: 0.4 mg - Labs Labs: 04/19/18 08:07 04/19/18 08:07 PT 10.6 SECONDS (9.7-12.2) 11/24/15 14:10 INR 1.0 11/24/15 14:10 APTT 25 SECONDS (21-34) 11/24/15 14:10 - Constitutional Appears: No Acute Distress, Chronically Ill - Head Exam Head Exam: ATRAUMATIC, NORMAL INSPECTION - Eye Exam Eye Exam: absent: Scleral icterus - Neck Exam Additional comments: Trach in place - Cardiovascular Exam Cardiovascular Exam: REGULAR RHYTHM, +S1, +S2 - GI/Abdominal Exam Additional comments: G tube in place - clean/dry/intact - Neurological Exam Neurological Exam: absent: Alert, Awake Assessment and Plan - Assessment and Plan (Free Text) Assessment: (1) Anoxic encephalopathy Assessment & Plan: * s/p cardiac arrest in 05/2015 * no acute changes in mental status. * Pt has non spontaneous movements. * patient is currently on 45cc/hr on tube feedings * via PEG * Aspirin 81mg daily * Keppra 500mg bid Status: Chronic (2) Acute Respiratory failure Assessment & Plan: * Trach in place, continue daily monitoring for secretions. No change in management at this time. * Continue with aggressive suctioning multiple times a day per respiratory therapist if secretions are thickened * Scopolamine 1 patch TD Q3D JOO * Most recent chest xray: * 09/28/17: no active disease. No significant interval change compared to. Status: Resolved (3) History of Recurrent UTIs Assessment & Plan: * ID consult: Dr. Armstrong --> help appreciated * Patient is afebrile, no apparent leukocytosis * Patient is off IV abx since 08/05/17 * patient has condom catheter and Bladder scan PRN to prevent urinary retention Status: Acute (4) History of Urinary retention Assessment & Plan: * Tamsulosin 0.4mg daily * Finasteride 5 mg daily * Bladder scan up to 3x a week to monitor residual urine * patient has had history of recurrent UTIs Status: Chronic (5) Hypokalemia Assessment & Plan: * Monitor and replete Status: Acute (6) History of Sacral ulcer Assessment & Plan: * Healed * Cont with offloading/cushioning/turning * Continue frequent turning, protective ointment and skin checks. Status: Resolved (7) History of coronary artery disease Assessment & Plan: * s/p cardiac stents on 06/13/15 * Cont ASA 81mg via PEG daily * Cont Coreg 3.125mg PEG BID * Rosuvastatin 2.5mg PO HS Status: Acute (8) History of Seizures Assessment & Plan: * Continue Keppra 500mg PEG BID for seizure prophylaxis * Monitor for activity Status: Chronic (9) Lower extremity edema Assessment & Plan: * Improved * SCDs in place * Pressure ulcer boots on b/l * Continue to monitor Status: Chronic (10) Prophylactic measure Assessment & Plan: * Pepcid 20 mg PEG daily * Lovenox 40mg SC daily * SCDs and offloading boots * continue to turn and reposition q2hrs * Continue to monitor medication administrations and clinical presentation weekly labs. 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 Ramirez was previously consulted * Baker is working well in PEG tube place * 03/31/18 * IR reconsulted: Dr. Schroeder - Spoke with Dr. Schroeder who stated he will replace a G tube on 04/01/18 or 04/02/18 - Replaced the current baker with a new baker until the G tube is placed - s/p replacement of gastrostomy tube 04/02/18 - Lovenox and Aspirin will resume on 04/03/18 Disposition: Patient has prolonged hospitalization due to multiple co- morbidities. Per case management, unable to place patient
[2018-04-20] MEDS: Enoxaparin 40 mg Syringe SC SCH (10:08)
[2018-04-20] MEDS: levETIRAcetam 100 mg/ml (5ml) Oral Syringe PO SCH ×2 (10:09→17:50)
[2018-04-20] MEDS: Rosuvastatin Calcium 2.5 mg Tab PEG SCH (21:18)
[2018-04-21] MEDS: Enoxaparin 40 mg Syringe SC SCH (09:57)
[2018-04-21] MEDS: levETIRAcetam 100 mg/ml (5ml) Oral Syringe PO SCH ×2 (09:58→18:27)
[2018-04-21] MEDS: Rosuvastatin Calcium 2.5 mg Tab PEG SCH (22:43)
[2018-04-22] MEDS: Enoxaparin 40 mg Syringe SC SCH (09:49)
[2018-04-22] MEDS: levETIRAcetam 100 mg/ml (5ml) Oral Syringe PO SCH ×2 (09:50→18:23)
--- NOTE | 2018-04-22 11:13 | CP.PCM.DIS ---
<Alisia Pappas - Last Filed: 04/22/18 11:06> Provider - Provider Date of Admission: 06/13/15 21:05 Attending physician: Amandeep Chavis DO Consults: 06/13/15 23:24 Physician Consult Routine Comment: Consulting Provider: Karen Canales Physician Instructions: Reason For Exam: V Fib 06/14/15 06:49 Nursing Referral for Wound Care Routine Comment: Physician Instructions: Reason For Exam: keep headend elevation 15 deg 06/14/15 14:38 Palliative Care Consult Routine Comment: Consulting Provider: Renita Leblanc Physician Instructions: Reason For Exam: anoxic brain inj. 06/18/15 13:31 Physician Consult Routine Comment: Consulting Provider: Blair Chan Physician Instructions: Reason For Exam: Trach and PEG eval 06/27/15 11:26 Neurology Consult Routine Comment: Consulting Provider: Dennis Garcia Physician Instructions: Reason For Exam: questionable brain 07/16/16 14:43 Wound Care [Nursing Referral for Wound Care] Routine Comment: Physician Instructions: Reason For Exam: sacral wound 08/27/16 16:36 Wound Care [Nursing Referral for Wound Care] Routine Comment: Physician Instructions: Reason For Exam: RECHECK SACRAL REGION 11/01/15 13:18 Nursing Referral for Wound Care Routine Comment: Physician Instructions: Reason For Exam: re-check sacrum Time Spent in preparation of Discharge (in minutes): 60 Hospital Course - Lab Results Lab Results: Micro Results 08/08/17 Unknown Urine Urine Culture - Final No Growth (<1,000 CFU/ML) 07/23/17 06:00 Urine Urine Culture - Final Yeast Species 07/16/17 20:00 Blood-Venous Blood Culture - Final NO GROWTH AFTER 5 DAYS 07/16/17 20:00 Blood-Venous Gram Stain - Final TEST NOT PERFORMED 07/16/17 20:00 Blood-Venous Blood Culture - Final NO GROWTH AFTER 5 DAYS 07/16/17 20:00 Blood-Venous Gram Stain - Final TEST NOT PERFORMED 07/12/17 07:00 Blood Blood Culture - Final NO GROWTH AFTER 5 DAYS 07/12/17 07:00 Blood Gram Stain - Final 07/12/17 06:36 Blood Blood Culture - Final Stenotrophomonas Maltophilia 07/12/17 06:36 Blood Gram Stain - Final 07/12/17 04:49 Urine,Yoo Urine Culture - Final Proteus Mirabilis 05/28/17 10:14 Urine Urine Culture - Final Proteus Mirabilis 04/26/17 16:00 Stool Stool Culture - Final NO SALMONELLA, SHIGELLA OR CAMPYLOBACTER ISOLATED. 04/26/17 15:30 Rectum Ova and Parasite Concentrate Exam - Final 04/11/17 15:36 Trachasp Gram Stain - Final 04/11/17 15:36 Trachasp Sputum Culture - Final Pseudomonas Aeruginosa Proteus Mirabilis 04/06/17 11:57 Blood-Venous Blood Culture - Final NO GROWTH AFTER 5 DAYS 04/06/17 11:57 Blood-Venous Gram Stain - Final TEST NOT PERFORMED 04/06/17 09:40 Blood-Venous Blood Culture - Final NO GROWTH AFTER 5 DAYS 04/06/17 09:40 Blood-Venous Gram Stain - Final TEST NOT PERFORMED 04/06/17 15:00 Urine,Clean Catch Urine Culture - Final Proteus Mirabilis 03/26/17 09:30 Urine,Clean Catch Urine Culture - Final No Growth (<1,000 CFU/ML) 03/20/17 16:30 Blood Blood Culture - Final NO GROWTH AFTER 5 DAYS 03/20/17 16:30 Blood Gram Stain - Final TEST NOT PERFORMED 03/20/17 17:00 Blood Blood Culture - Final NO GROWTH AFTER 5 DAYS 03/20/17 17:00 Blood Gram Stain - Final TEST NOT PERFORMED 03/17/17 23:06 Urine Urine Culture - Final Proteus Mirabilis 12/13/16 11:21 Urine Urine Culture - Final Proteus Mirabilis 12/03/16 12:37 Urine,Yoo Urine Culture - Final Klebsiella Pneumoniae Ssp Pneu 10/15/16 14:15 Blood-Venous Blood Culture - Final NO GROWTH AFTER 5 DAYS 10/15/16 14:15 Blood-Venous Gram Stain - Final TEST NOT PERFORMED 10/15/16 13:53 Blood-Venous Blood Culture - Final NO GROWTH AFTER 5 DAYS 10/15/16 13:53 Blood-Venous Gram Stain - Final TEST NOT PERFORMED 10/09/16 16:30 Blood-Venous Blood Culture - Final NO GROWTH AFTER 5 DAYS 10/09/16 16:30 Blood-Venous Gram Stain - Final TEST NOT PERFORMED 10/09/16 17:20 Blood-Venous S.aureus & Coag-Neg Staph PNA FISH - Final 10/09/16 17:20 Blood-Venous Blood Culture - Final Coagulase Neg Staphylococcus 10/09/16 17:20 Blood-Venous Gram Stain - Final 10/07/16 17:00 Blood-Venous Blood Culture - Final NO GROWTH AFTER 5 DAYS 10/07/16 17:00 Blood-Venous Gram Stain - Final TEST NOT PERFORMED 10/07/16 Unknown Blood-Venous S.aureus & Coag-Neg Staph PNA FISH - Final 10/07/16 Unknown Blood-Venous Blood Culture - Final Coagulase Neg Staphylococcus 10/07/16 Unknown Blood-Venous Gram Stain - Final 10/03/16 Unknown Urine,Yoo Urine Culture - Final Proteus Mirabilis 09/09/16 06:00 Urine Urine Culture - Final Gram Negative Lyle 08/04/16 Unknown Urine,Catheterized Urine Culture - Final Proteus Mirabilis 08/01/16 16:00 Urine,Yoo Urine Culture - Final Proteus Mirabilis 07/16/16 11:24 Trachasp Gram Stain - Final 07/16/16 11:24 Trachasp Sputum Culture - Final Pseudomonas Aeruginosa Proteus Mirabilis 07/02/16 23:00 Blood-Venous Blood Culture - Final NO GROWTH AFTER 5 DAYS 07/02/16 23:00 Blood-Venous Gram Stain - Final TEST NOT PERFORMED 07/02/16 22:30 Blood-Venous Blood Culture - Final NO GROWTH AFTER 5 DAYS 07/02/16 22:30 Blood-Venous Gram Stain - Final TEST NOT PERFORMED 07/04/16 11:30 Urine,Yoo Urine Culture - Final Proteus Mirabilis 07/03/16 00:01 Trachasp Gram Stain - Final 07/03/16 00:01 Trachasp Sputum Culture - Final Pseudomonas Aeruginosa Klebsiella Pneumoniae Ssp Pneu 07/02/16 Unknown Urine,Yoo Urine Culture - Final MULTIPLE SPECIES. SUGGEST REPEAT SPECIMEN. 06/09/16 19:00 Blood Blood Culture - Final NO GROWTH AFTER 5 DAYS 06/09/16 19:00 Blood Gram Stain - Final TEST NOT PERFORMED 06/09/16 19:00 Blood Blood Culture - Final NO GROWTH AFTER 5 DAYS 06/09/16 19:00 Blood Gram Stain - Final TEST NOT PERFORMED 06/09/16 19:00 Urine Urine Culture - Final 10-50,000 CFU/ML. MULTIPLE SPECIES. PROBABLE CONTAMINATION. 04/14/16 19:25 Blood Blood Culture - Final NO GROWTH AFTER 5 DAYS 04/14/16 19:25 Blood Gram Stain - Final 04/14/16 20:00 Blood Blood Culture - Final NO GROWTH AFTER 5 DAYS 04/14/16 20:00 Blood Gram Stain - Final TEST NOT PERFORMED 04/16/16 Unknown Urine,Yoo Urine Culture - Final Pseudomonas Aeruginosa Enterococcus Faecalis 04/16/16 Unknown Sputum Gram Stain - Final 04/16/16 Unknown Sputum Sputum Culture - Final Pseudomonas Aeruginosa 04/15/16 Unknown Sputum Gram Stain - Final 04/15/16 Unknown Sputum Sputum Culture - Final Pseudomonas Aeruginosa 04/14/16 21:50 Urine Urine Culture - Final Pseudomonas Aeruginosa Enterococcus Faecalis 01/02/16 Unknown Urine,Clean Catch Urine Culture - Final Proteus Mirabilis 12/23/15 15:00 Urine,Yoo Urine Culture - Final No Growth (<1,000 CFU/ML) 12/19/15 15:00 Urine,Yoo Urine Culture - Final Proteus Mirabilis 12/16/15 13:00 Urine,Yoo Urine Culture - Final Proteus Mirabilis 12/13/15 13:00 Urine Urine Culture - Final Proteus Mirabilis 12/06/15 Unknown Sputum Gram Stain - Final 12/06/15 Unknown Sputum Sputum Culture - Final Pseudomonas Aeruginosa 11/27/15 15:00 Bronchial Washings Bronchial Culture - Final Pseudomonas Aeruginosa 11/22/15 16:01 Urine,Yoo Urine Culture - Final Pseudomonas Aeruginosa 11/16/15 08:30 Urine,Yoo Urine Culture - Final Klebsiella Pneumoniae Ssp Pneu 09/17/15 19:20 Urine,Yoo Urine Culture - Final No Growth (<1,000 CFU/ML) 09/11/15 Unknown Urine,Yoo Urine Culture - Final Pseudomonas Aeruginosa 07/28/15 22:05 Trachasp Gram Stain - Final 07/28/15 22:05 Trachasp Sputum Culture - Final Pseudomonas Aeruginosa 07/28/15 22:05 Urine,Yoo Urine Culture - Final No Growth (<1,000 CFU/ML) 07/21/15 16:00 Urine Urine Culture - Final Beta Hemolytic Strep Group B 07/18/15 16:59 Sputum Gram Stain - Final 07/18/15 16:59 Sputum Sputum Culture - Final Pseudomonas Aeruginosa 07/18/15 Unknown Urine,Catheterized Urine Culture - Final No Growth (<1,000 CFU/ML) 07/12/15 Unknown Urine,Yoo Urine Culture - Final Pseudomonas Aeruginosa 06/14/15 14:55 Blood Gram Stain - Final 06/14/15 14:55 Blood Blood Culture - Final NO GROWTH AFTER 5 DAYS 06/14/15 15:20 Blood Gram Stain - Final 06/14/15 15:20 Blood Blood Culture - Final NO GROWTH AFTER 5 DAYS 06/14/15 Unknown Nose MRSA Culture (Admit) - Final MRSA NOT DETECTED 06/14/15 Unknown Urine,Yoo Urine Culture - Final No Growth (<1,000 CFU/ML) Most Recent Lab Values WBC 9.7 K/uL (4.8-10.8) 04/19/18 08:07 RBC 4.13 Mil/uL (4.40-5.90) L 04/19/18 08:07 Hgb 12.3 g/dL (12.0-18.0) 04/19/18 08:07 Hct 36.9 % (35.0-51.0) 04/19/18 08:07 MCV 89.4 fL (80.0-94.0) 04/19/18 08:07 MCH 29.8 pg (27.0-31.0) 04/19/18 08:07 MCHC 33.4 g/dL (33.0-37.0) 04/19/18 08:07 RDW 14.8 % (11.5-14.5) H 04/19/18 08:07 Plt Count 202 K/uL (130-400) 04/19/18 08:07 MPV 9.6 fL (7.2-11.7) 04/19/18 08:07 Neut % (Auto) 57.2 % (50.0-75.0) 04/19/18 08:07 Lymph % (Auto) 29.6 % (20.0-40.0) 04/19/18 08:07 Bailey % (Auto) 8.8 % (0.0-10.0) 04/19/18 08:07 Eos % (Auto) 3.7 % (0.0-4.0) 04/19/18 08:07 Baso % (Auto) 0.7 % (0.0-2.0) 04/19/18 08:07 Neut # (Auto) 5.6 K/uL (1.8-7.0) 04/19/18 08:07 Lymph # (Auto) 2.9 K/uL (1.0-4.3) 04/19/18 08:07 Bailey # (Auto) 0.9 K/uL (0.0-0.8) H 04/19/18 08:07 Eos # (Auto) 0.4 K/uL (0.0-0.7) 04/19/18 08:07 Baso # (Auto) 0.1 K/uL (0.0-0.2) 04/19/18 08:07 Reactive Lymphs % 1 % (0-0) H 06/23/15 07:28 Neutrophils % (Manual) 86 % (50-75) H 07/21/17 07:36 Band Neutrophils % 1 % (0-2) 07/21/17 07:36 Lymphocytes % (Manual) 5 % (20-40) L 07/21/17 07:36 Monocytes % (Manual) 6 % (0-10) 07/21/17 07:36 Basophils % (Manual) 1 % (0-2) 12/26/15 08:10 Eosinophils % (Manual) 2 % (0-4) 07/21/17 07:36 Myelocytes % 1 % (0-0) H 04/20/17 07:11 Differential Comment 07/25/17 06:59 Toxic Granulation Present 07/21/17 07:36 Platelet Estimate Normal (NORMAL) 07/21/17 07:36 Plt Clumps, EDTA Present 04/13/17 06:54 Large Platelets Present 04/20/17 07:11 Giant Platelets Present 04/13/17 06:54 RBC Morphology Normal 12/24/15 07:18 Basophilic Stippling Slight 08/18/15 07:58 Target Cells Slight 09/14/15 07:59 Tear Drop Cells Slight 07/14/15 07:30 Ovalocytes Slight 08/23/15 13:43 Polychromasia Slight 04/20/17 07:11 Hypochromasia (manual) Slight 07/21/17 07:36 Lily Cells Slight 08/23/15 13:43 Poikilocytosis (manual Slight 07/21/17 07:36 Anisocytosis (manual) Slight 07/21/17 07:36 Schistocytes Slight 12/21/15 07:06 PT 10.6 SECONDS (9.7-12.2) 11/24/15 14:10 INR 1.0 11/24/15 14:10 APTT 25 SECONDS (21-34) 11/24/15 14:10 Plt Function Assay 76 K/uL 06/20/15 07:35 Puncture Site Rr 07/03/16 09:23 pCO2 39 mm/Hg (35-45) 07/03/16 09:23 pO2 88 mm/Hg (80-100) 07/03/16 09:23 HCO3 27.8 mmol/L (21-28) 07/03/16 09:23 ABG pH 7.46 (7.35-7.45) H 07/03/16 09:23 ABG Total CO2 28.9 mmol/L (22-28) H 07/03/16 09:23 ABG O2 Saturation 98.7 % (95-98) H 07/03/16 09:23 ABG Base Excess 3.7 mmol/L (-2.0-3.0) H 07/03/16 09:23 Yimi Test Pos 07/03/16 09:23 ABG Potassium 3.6 mmol/L (3.6-5.2) 07/03/16 09:23 ABG Lactate 2.2 mmol/L (0.7-2.1) H 07/03/16 09:23 VBG pH 7.35 (7.32-7.43) 07/03/16 03:23 VBG pCO2 44 mmHg (40-60) 07/03/16 03:23 VBG HCO3 22.8 mmol/L 07/03/16 03:23 VBG O2 Sat (Calc) 57.4 % (40-65) 07/03/16 03:23 VBG Base Excess -1.5 mmol/L (0.0-2.0) L 07/03/16 03:23 VBG Lactate 8.8 mmol/L (0.7-2.1) H* 07/03/16 03:23 A-a O2 Difference 77.0 mm/Hg 07/03/16 09:23 Respiratory Index 0.9 07/03/16 09:23 Sodium 140.0 mmol/l (132-148) 07/03/16 09:23 Glucose 143 mg/dl (75-110) H 07/03/16 09:23 Mechanical Rate 16.000 06/21/15 05:18 Spontaneous Rate 21.000 10/13/15 12:35 Liter Flow 5.0 07/02/16 22:28 Tidal Volume 365.000 10/13/15 12:35 Pressure Support 8.000 10/13/15 12:35 FiO2 30.0 % 07/03/16 09:23 CPAP 5.000 10/13/15 12:35 Crit Value Called To Dr eckert 07/03/16 03:23 Crit Value Called By Yadira kelly 07/03/16 03:23 Crit Value Read Back Y 07/03/16 03:23 Blood Gas Notified Time 332 07/03/16 03:23 Sodium 142 mmol/L (132-148) 04/19/18 08:07 Potassium 3.8 mmol/L (3.6-5.2) 04/19/18 08:07 Chloride 104 mmol/L (98-107) 04/19/18 08:07 Carbon Dioxide 30 mmol/L (22-30) 04/19/18 08:07 Anion Gap 12 (10-20) 04/19/18 08:07 BUN 13 mg/dL (9-20) 04/19/18 08:07 Creatinine 0.6 mg/dL (0.8-1.5) L 04/19/18 08:07 Est GFR ( Amer) > 60 04/19/18 08:07 Est GFR (Non-Af Amer) > 60 04/19/18 08:07 POC Glucose (mg/dL) 91 mg/dL (65-110) 12/09/17 19:06 Random Glucose 114 mg/dL (75-110) H 04/19/18 08:07 Hemoglobin A1c 5.8 % (4.2-6.5) 01/01/17 08:14 Lactic Acid 5.8 mmol/L (0.7-2.1) H* 06/14/15 06:25 Calcium 8.6 mg/dl (8.6-10.4) 04/19/18 08:07 Phosphorus 4.2 mg/dL (2.5-4.5) 04/19/18 08:07 Magnesium 2.0 mg/dL (1.6-2.3) 04/19/18 08:07 Ammonia < 9 umol/L (9-33) L 06/18/15 09:56 Total Bilirubin 0.5 mg/dL (0.2-1.3) 04/19/18 08:07 Total Creatine Kinase 3027 U/L (55-170) H 06/14/15 12:38 AST 22 U/L (17-59) 04/19/18 08:07 ALT 34 U/L (21-72) 04/19/18 08:07 CK-MB (Mass) 20.6 ng/mL (0.0-3.38) H 06/14/15 12:38 Alkaline Phosphatase 117 U/L (38-126) 04/19/18 08:07 Troponin I 10.7000 ng/mL (0.00-0.120) H* 06/14/15 06:25 Troponin I, Quant 9.8200 ng/mL (0.00-0.120) H* 06/14/15 12:38 NT-Pro-B Natriuret Pep 938 pg/mL (0-900) H 06/13/15 21:05 Prealbumin 23.3 mg/dL (17.6-36.0) 07/24/16 07:40 Triglycerides 69 mg/dL (0-149) 06/13/15 21:05 Total Protein 7.9 g/dL (6.3-8.3) 04/19/18 08:07 Albumin 3.5 g/dL (3.5-5.0) 04/19/18 08:07 Cholesterol 184 mg/dL (0-199) 06/13/15 21:05 Globulin 4.4 gm/dL (2.2-3.9) H 04/19/18 08:07 Albumin/Globulin Ratio 0.8 (1.0-2.1) L 04/19/18 08:07 LDL Cholesterol Direct 128 mg/dL (0-129) 06/13/15 21:05 HDL Cholesterol 36 mg/dL (30-70) 06/13/15 21:05 Prolactin 21.5 ng/mL (3.7-17.9) H 06/15/15 06:48 Arterial Blood Potassium 3.6 mmol/L (3.6-5.2) 07/03/16 09:23 Urine Color Yellow (YELLOW) 08/08/17 06:41 Urine Clarity Hazy (Clear) 08/08/17 06:41 Urine pH 8.0 (5.0-8.0) 08/08/17 06:41 Ur Specific [place] 1.011 (1.003-1.030) 08/08/17 06:41 Urine Protein Negative mg/dL (NEGATIVE) 08/08/17 06:41 Urine Glucose (UA) Normal mg/dL (Normal) 08/08/17 06:41 Urine Ketones Negative mg/dL (NEGATIVE) 08/08/17 06:41 Urine Blood Negative (NEGATIVE) 08/08/17 06:41 Urine Nitrate Negative (NEGATIVE) 08/08/17 06:41 Urine Bilirubin Negative (NEGATIVE) 08/08/17 06:41 Urine Urobilinogen Normal mg/dL (0.2-1.0) 08/08/17 06:41 Ur Leukocyte Esterase Neg Elida/uL (Negative) 08/08/17 06:41 Urine WBC (Auto) 3 /hpf (0-5) 08/08/17 06:41 Urine RBC (Auto) 6 /hpf (0-3) H 08/08/17 06:41 Ur Transition Epith Cell 1 /hpf (0-3) 07/12/15 20:10 Ur Squamous Epith Cells < 1 /hpf (0-5) 08/08/17 06:41 Calcium Oxalate Crystal Few /hpf (<OCC) H 11/16/15 07:43 Calcium Phos Quita (Auto) Rare /hpf (<OCC) 07/31/16 21:06 Triple Phos Crystals Occ /hpf (<OCC) H 03/17/17 23:39 Amorphous Sediment Rare /ul (<OCC) H 12/13/16 11:43 Urine Bacteria Occ (<OCC) H 05/28/17 19:27 Hyaline Casts 0-2 /lpf (0-2) 08/08/17 06:41 Urine Mucus Few (NONE) H 07/21/15 14:29 Urine Yeast (Budding) Few /hpf (NEGATIVE) H 11/16/15 07:43 Ur Random Creatinine 116.0 mg/dL 08/02/16 14:35 U Random Total Protein 13.0 mg/dL (0.0-12.0) H 08/02/16 14:35 Stool Leukocytes, Qual Negative (NEGATIVE) 04/26/17 15:30 Amikacin Trough 5.8 mg/L (4.0-8.0) 07/18/17 07:34 Gentamicin Trough 1.9 ug/mL (0.0-0.9) H 07/14/16 11:03 Vancomycin Trough < 5.0 ug/mL (5.0-10.0) L 06/18/15 14:10 Phenytoin 4.2 ug/mL (10-20) L 07/19/16 13:53 Free Phenytoin <0.5 mg/L (1.0-2.0) L 07/14/16 11:03 C. difficile Ag & Toxin Negative (NEGATIVE) 07/24/17 06:00 Hepatitis A IgM Ab Negative (NEGATIVE) 07/11/15 07:31 Hep Bs Antigen Negative (NEGATIVE) 07/11/15 07:31 Hep B Core IgM Ab Negative (NEGATIVE) 07/11/15 07:31 Hepatitis C Antibody Negative (NEGATIVE) 07/11/15 07:31 Blood Type O POSITIVE 11/24/15 14:10 Antibody Screen Negative 11/24/15 14:10 - Hospital Course Hospital Course: CC: Code Heart Patient is a 64 yo M with unknown pmhx who was found unresponsive in driveway by EMS after fall that was witnessed by family. in the field, CPR was given, patient was in asystole and was shocked 3 times, given 1 dose of Epinephrine and started on an Amiodarone drip. In the ED, the patient was found to be in V Fib and was shocked once. He then converted to sinus tachy and given 5000 U of heparin and Versed. He was intubated and an NGT was placed. Afterwards, he was given 600 mg of Plavis and 325 of ASA> He was found to have a large gash on the R side of his head so he was taken for a Head CT, which showed on acute intracranial hemorrhage and then to the dentures lab technician. From Patient's History obtained by Director Of Placement from family: PMHx: unknown type of "heart trouble" that was diagnosed in [place] 15 years ago. no rx or therapy given at that time. he has not seen a physician in 15 years PSHx: Denied Soc: denied EtOH and tobacco Allergy: NKDA meds: none Hospital course: Due to this patient's extended admission, this is a brief summary of hospital course. Please refer to full medical record for complete details. During this patient's hospital course, numerous services (including Neurology, Cardiology, Surgery, Critical Care, Gastroenterology, Infectious Disease, Urology, Wound Care, Interventional Radiology) were consulted and care was coordinated among all teams. 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 As a result of anoxic brain injury, patient suffers from seizure disorder, which was assessed, monitored, and managed. Patient had tracheostomy and PEG tube placement. PEG tube was changed several times during the admission. Patient was initially on mechanical ventilator and successfully weened off. Patient also had several episodes of UTI during this admission, which were appropriately assessed, monitored, and managed. Patient had stable clinical course, with family and appropriate parties updated. Patient remains awake but unresponsive. Patient is medically stable for [facility] to [facility]. Patient to continue to use a condom catheter in the [facility] facility. Patient to continue medications. 1.) Aspirin 81mg PEG daily 2.) Coreg 3.125mg PEG BID 3.) Lovenox 40mg SC daily 4.) Pepcid 20mg PEG daily 5.) Keppra 500mg PEG BID 6.) Crestor 2.5mg PEG HS 7.) Scopolamine 1 patch TS Q3D JOO 8.) Flomax 0.4mg PEG daily 9.) Finasteride 5mg PEG daily This is a summary of the patient's hospital course. Refer to full EMR for a complete record. Discharge Exam - Head Exam Head Exam: ATRAUMATIC, NORMAL INSPECTION - Eye Exam Eye Exam: Normal appearance - ENT Exam ENT Exam: Mucous Membranes Moist - Respiratory Exam Respiratory Exam: NORMAL BREATHING PATTERN - Cardiovascular Exam Cardiovascular Exam: REGULAR RHYTHM, +S1, +S2 - GI/Abdominal Exam GI & Abdominal Exam: Normal Bowel Sounds, Soft. absent: Tenderness Additional comments: G-tube in place - clean/dry/intact - Extremities Exam Extremities exam: normal inspection - Skin Skin Exam: Normal Color Discharge Plan - Follow Up Plan Condition: CRITICAL Disposition: [facility] Instructions: Sudden Cardiac Arrest, Seizures, Adult (DC), Anoxic Brain Damage (DC) <Amandeep Chavis - Last Filed: 04/22/18 17:00> Provider - Provider Date of Admission: 06/13/15 21:05 Attending physician: Amandeep Chavis DO Consults: 06/13/15 23:24 Physician Consult Routine Comment: Consulting Provider: Karen Canales Physician Instructions: Reason For Exam: V Fib 06/14/15 06:49 Nursing Referral for Wound Care Routine Comment: Physician Instructions: Reason For Exam: keep headend elevation 15 deg 06/14/15 14:38 Palliative Care Consult Routine Comment: Consulting Provider: Renita Leblanc Physician Instructions: Reason For Exam: anoxic brain inj. 06/18/15 13:31 Physician Consult Routine Comment: Consulting Provider: Blair Chan Physician Instructions: Reason For Exam: Trach and PEG eval 06/27/15 11:26 Neurology Consult Routine Comment: Consulting Provider: Dennis Garcia Physician Instructions: Reason For Exam: questionable brain 07/16/16 14:43 Wound Care [Nursing Referral for Wound Care] Routine Comment: Physician Instructions: Reason For Exam: sacral wound 08/27/16 16:36 Wound Care [Nursing Referral for Wound Care] Routine Comment: Physician Instructions: Reason For Exam: RECHECK SACRAL REGION 11/01/15 13:18 Nursing Referral for Wound Care Routine Comment: Physician Instructions: Reason For Exam: re-check sacrum Diagnosis - Discharge Diagnosis (1) Prophylactic measure Status: Acute (2) Anoxic encephalopathy Status: Chronic (3) STEMI (ST elevation myocardial infarction) Status: Acute (4) Cardiac arrest Status: Acute (5) Seizures Status: Acute (6) Respiratory failure Status: Chronic Hospital Course - Lab Results Lab Results: Micro Results 08/08/17 Unknown Urine Urine Culture - Final No Growth (<1,000 CFU/ML) 07/23/17 06:00 Urine Urine Culture - Final Yeast Species 07/16/17 20:00 Blood-Venous Blood Culture - Final NO GROWTH AFTER 5 DAYS 07/16/17 20:00 Blood-Venous Gram Stain - Final TEST NOT PERFORMED 07/16/17 20:00 Blood-Venous Blood Culture - Final NO GROWTH AFTER 5 DAYS 07/16/17 20:00 Blood-Venous Gram Stain - Final TEST NOT PERFORMED 07/12/17 07:00 Blood Blood Culture - Final NO GROWTH AFTER 5 DAYS 07/12/17 07:00 Blood Gram Stain - Final 07/12/17 06:36 Blood Blood Culture - Final Stenotrophomonas Maltophilia 07/12/17 06:36 Blood Gram Stain - Final 07/12/17 04:49 Urine,Yoo Urine Culture - Final Proteus Mirabilis 07/06/17 10:14 Urine Urine Culture - Final Proteus Mirabilis 04/26/17 16:00 Stool Stool Culture - Final NO SALMONELLA, SHIGELLA OR CAMPYLOBACTER ISOLATED. 04/26/17 15:30 Rectum Ova and Parasite Concentrate Exam - Final 04/11/17 15:36 Trachasp Gram Stain - Final 04/11/17 15:36 Trachasp Sputum Culture - Final Pseudomonas Aeruginosa Proteus Mirabilis 04/06/17 11:57 Blood-Venous Blood Culture - Final NO GROWTH AFTER 5 DAYS 04/06/17 11:57 Blood-Venous Gram Stain - Final TEST NOT PERFORMED 04/06/17 09:40 Blood-Venous Blood Culture - Final NO GROWTH AFTER 5 DAYS 04/06/17 09:40 Blood-Venous Gram Stain - Final TEST NOT PERFORMED 04/06/17 15:00 Urine,Clean Catch Urine Culture - Final Proteus Mirabilis 03/26/17 09:30 Urine,Clean Catch Urine Culture - Final No Growth (<1,000 CFU/ML) 03/20/17 16:30 Blood Blood Culture - Final NO GROWTH AFTER 5 DAYS 03/20/17 16:30 Blood Gram Stain - Final TEST NOT PERFORMED 03/20/17 17:00 Blood Blood Culture - Final NO GROWTH AFTER 5 DAYS 03/20/17 17:00 Blood Gram Stain - Final TEST NOT PERFORMED 03/17/17 23:06 Urine Urine Culture - Final Proteus Mirabilis 12/13/16 11:21 Urine Urine Culture - Final Proteus Mirabilis 12/03/16 12:37 Urine,Yoo Urine Culture - Final Klebsiella Pneumoniae Ssp Pneu 10/15/16 14:15 Blood-Venous Blood Culture - Final NO GROWTH AFTER 5 DAYS 10/15/16 14:15 Blood-Venous Gram Stain - Final TEST NOT PERFORMED 10/15/16 13:53 Blood-Venous Blood Culture - Final NO GROWTH AFTER 5 DAYS 10/15/16 13:53 Blood-Venous Gram Stain - Final TEST NOT PERFORMED 10/09/16 16:30 Blood-Venous Blood Culture - Final NO GROWTH AFTER 5 DAYS 10/09/16 16:30 Blood-Venous Gram Stain - Final TEST NOT PERFORMED 10/09/16 17:20 Blood-Venous S.aureus & Coag-Neg Staph PNA FISH - Final 10/09/16 17:20 Blood-Venous Blood Culture - Final Coagulase Neg Staphylococcus 10/09/16 17:20 Blood-Venous Gram Stain - Final 10/07/16 17:00 Blood-Venous Blood Culture - Final NO GROWTH AFTER 5 DAYS 10/07/16 17:00 Blood-Venous Gram Stain - Final TEST NOT PERFORMED 10/07/16 Unknown Blood-Venous S.aureus & Coag-Neg Staph PNA FISH - Final 10/07/16 Unknown Blood-Venous Blood Culture - Final Coagulase Neg Staphylococcus 10/07/16 Unknown Blood-Venous Gram Stain - Final 10/03/16 Unknown Urine,Yoo Urine Culture - Final Proteus Mirabilis 09/09/16 06:00 Urine Urine Culture - Final Gram Negative Lyle 08/04/16 Unknown Urine,Catheterized Urine Culture - Final Proteus Mirabilis 08/01/16 16:00 Urine,Yoo Urine Culture - Final Proteus Mirabilis 07/16/16 11:24 Trachasp Gram Stain - Final 07/16/16 11:24 Trachasp Sputum Culture - Final Pseudomonas Aeruginosa Proteus Mirabilis 07/02/16 23:00 Blood-Venous Blood Culture - Final NO GROWTH AFTER 5 DAYS 07/02/16 23:00 Blood-Venous Gram Stain - Final TEST NOT PERFORMED 07/02/16 22:30 Blood-Venous Blood Culture - Final NO GROWTH AFTER 5 DAYS 07/02/16 22:30 Blood-Venous Gram Stain - Final TEST NOT PERFORMED 07/04/16 11:30 Urine,Yoo Urine Culture - Final Proteus Mirabilis 07/03/16 00:01 Trachasp Gram Stain - Final 07/03/16 00:01 Trachasp Sputum Culture - Final Pseudomonas Aeruginosa Klebsiella Pneumoniae Ssp Pneu 07/02/16 Unknown Urine,Yoo Urine Culture - Final MULTIPLE SPECIES. SUGGEST REPEAT SPECIMEN. 06/09/16 19:00 Blood Blood Culture - Final NO GROWTH AFTER 5 DAYS 06/09/16 19:00 Blood Gram Stain - Final TEST NOT PERFORMED 06/09/16 19:00 Blood Blood Culture - Final NO GROWTH AFTER 5 DAYS 06/09/16 19:00 Blood Gram Stain - Final TEST NOT PERFORMED 06/09/16 19:00 Urine Urine Culture - Final 10-50,000 CFU/ML. MULTIPLE SPECIES. PROBABLE CONTAMINATION. 04/14/16 19:25 Blood Blood Culture - Final NO GROWTH AFTER 5 DAYS 04/14/16 19:25 Blood Gram Stain - Final 04/14/16 20:00 Blood Blood Culture - Final NO GROWTH AFTER 5 DAYS 04/14/16 20:00 Blood Gram Stain - Final TEST NOT PERFORMED 04/16/16 Unknown Urine,Yoo Urine Culture - Final Pseudomonas Aeruginosa Enterococcus Faecalis 04/16/16 Unknown Sputum Gram Stain - Final 04/16/16 Unknown Sputum Sputum Culture - Final Pseudomonas Aeruginosa 04/15/16 Unknown Sputum Gram Stain - Final 04/15/16 Unknown Sputum Sputum Culture - Final Pseudomonas Aeruginosa 04/14/16 21:50 Urine Urine Culture - Final Pseudomonas Aeruginosa Enterococcus Faecalis 01/02/16 Unknown Urine,Clean Catch Urine Culture - Final Proteus Mirabilis 12/23/15 15:00 Urine,Yoo Urine Culture - Final No Growth (<1,000 CFU/ML) 12/19/15 15:00 Urine,Yoo Urine Culture - Final Proteus Mirabilis 12/16/15 13:00 Urine,Yoo Urine Culture - Final Proteus Mirabilis 12/13/15 13:00 Urine Urine Culture - Final Proteus Mirabilis 12/06/15 Unknown Sputum Gram Stain - Final 12/06/15 Unknown Sputum Sputum Culture - Final Pseudomonas Aeruginosa 11/27/15 15:00 Bronchial Washings Bronchial Culture - Final Pseudomonas Aeruginosa 11/22/15 16:01 Urine,Yoo Urine Culture - Final Pseudomonas Aeruginosa 11/16/15 08:30 Urine,Yoo Urine Culture - Final Klebsiella Pneumoniae Ssp Pneu 09/17/15 19:20 Urine,Yoo Urine Culture - Final No Growth (<1,000 CFU/ML) 09/11/15 Unknown Urine,Yoo Urine Culture - Final Pseudomonas Aeruginosa 07/28/15 22:05 Trachasp Gram Stain - Final 07/28/15 22:05 Trachasp Sputum Culture - Final Pseudomonas Aeruginosa 07/28/15 22:05 Urine,Yoo Urine Culture - Final No Growth (<1,000 CFU/ML) 07/21/15 16:00 Urine Urine Culture - Final Beta Hemolytic Strep Group B 07/18/15 16:59 Sputum Gram Stain - Final 07/18/15 16:59 Sputum Sputum Culture - Final Pseudomonas Aeruginosa 07/18/15 Unknown Urine,Catheterized Urine Culture - Final No Growth (<1,000 CFU/ML) 07/12/15 Unknown Urine,Yoo Urine Culture - Final Pseudomonas Aeruginosa 06/14/15 14:55 Blood Gram Stain - Final 06/14/15 14:55 Blood Blood Culture - Final NO GROWTH AFTER 5 DAYS 06/14/15 15:20 Blood Gram Stain - Final 06/14/15 15:20 Blood Blood Culture - Final NO GROWTH AFTER 5 DAYS 06/14/15 Unknown Nose MRSA Culture (Admit) - Final MRSA NOT DETECTED 06/14/15 Unknown Urine,Yoo Urine Culture - Final No Growth (<1,000 CFU/ML) Most Recent Lab Values WBC 9.7 K/uL (4.8-10.8) 04/19/18 08:07 RBC 4.13 Mil/uL (4.40-5.90) L 04/19/18 08:07 Hgb 12.3 g/dL (12.0-18.0) 04/19/18 08:07 Hct 36.9 % (35.0-51.0) 04/19/18 08:07 MCV 89.4 fL (80.0-94.0) 04/19/18 08:07 MCH 29.8 pg (27.0-31.0) 04/19/18 08:07 MCHC 33.4 g/dL (33.0-37.0) 04/19/18 08:07 RDW 14.8 % (11.5-14.5) H 04/19/18 08:07 Plt Count 202 K/uL (130-400) 04/19/18 08:07 MPV 9.6 fL (7.2-11.7) 04/19/18 08:07 Neut % (Auto) 57.2 % (50.0-75.0) 04/19/18 08:07 Lymph % (Auto) 29.6 % (20.0-40.0) 04/19/18 08:07 Bailey % (Auto) 8.8 % (0.0-10.0) 04/19/18 08:07 Eos % (Auto) 3.7 % (0.0-4.0) 04/19/18 08:07 Baso % (Auto) 0.7 % (0.0-2.0) 04/19/18 08:07 Neut # (Auto) 5.6 K/uL (1.8-7.0) 04/19/18 08:07 Lymph # (Auto) 2.9 K/uL (1.0-4.3) 04/19/18 08:07 Bailey # (Auto) 0.9 K/uL (0.0-0.8) H 04/19/18 08:07 Eos # (Auto) 0.4 K/uL (0.0-0.7) 04/19/18 08:07 Baso # (Auto) 0.1 K/uL (0.0-0.2) 04/19/18 08:07 Reactive Lymphs % 1 % (0-0) H 06/23/15 07:28 Neutrophils % (Manual) 86 % (50-75) H 07/21/17 07:36 Band Neutrophils % 1 % (0-2) 07/21/17 07:36 Lymphocytes % (Manual) 5 % (20-40) L 07/21/17 07:36 Monocytes % (Manual) 6 % (0-10) 07/21/17 07:36 Basophils % (Manual) 1 % (0-2) 12/26/15 08:10 Eosinophils % (Manual) 2 % (0-4) 07/21/17 07:36 Myelocytes % 1 % (0-0) H 04/20/17 07:11 Differential Comment 07/25/17 06:59 Toxic Granulation Present 07/21/17 07:36 Platelet Estimate Normal (NORMAL) 07/21/17 07:36 Plt Clumps, EDTA Present 04/13/17 06:54 Large Platelets Present 04/20/17 07:11 Giant Platelets Present 04/13/17 06:54 RBC Morphology Normal 12/24/15 07:18 Basophilic Stippling Slight 08/18/15 07:58 Target Cells Slight 09/14/15 07:59 Tear Drop Cells Slight 07/14/15 07:30 Ovalocytes Slight 08/23/15 13:43 Polychromasia Slight 04/20/17 07:11 Hypochromasia (manual) Slight 07/21/17 07:36 [place] Cells Slight 08/23/15 13:43 Poikilocytosis (manual Slight 07/21/17 07:36 Anisocytosis (manual) Slight 07/21/17 07:36 Schistocytes Slight 12/21/15 07:06 PT 10.6 SECONDS (9.7-12.2) 11/24/15 14:10 INR 1.0 11/24/15 14:10 APTT 25 SECONDS (21-34) 11/24/15 14:10 Plt Function Assay 76 K/uL 06/20/15 07:35 Puncture Site Rr 07/03/16 09:23 pCO2 39 mm/Hg (35-45) 07/03/16 09:23 pO2 88 mm/Hg (80-100) 07/03/16 09:23 HCO3 27.8 mmol/L (21-28) 07/03/16 09:23 ABG pH 7.46 (7.35-7.45) H 07/03/16 09:23 ABG Total CO2 28.9 mmol/L (22-28) H 07/03/16 09:23 ABG O2 Saturation 98.7 % (95-98) H 07/03/16 09:23 ABG Base Excess 3.7 mmol/L (-2.0-3.0) H 07/03/16 09:23 Yimi Test Pos 07/03/16 09:23 ABG Potassium 3.6 mmol/L (3.6-5.2) 07/03/16 09:23 ABG Lactate 2.2 mmol/L (0.7-2.1) H 07/03/16 09:23 VBG pH 7.35 (7.32-7.43) 07/03/16 03:23 VBG pCO2 44 mmHg (40-60) 07/03/16 03:23 VBG HCO3 22.8 mmol/L 07/03/16 03:23 VBG O2 Sat (Calc) 57.4 % (40-65) 07/03/16 03:23 VBG Base Excess -1.5 mmol/L (0.0-2.0) L 07/03/16 03:23 VBG Lactate 8.8 mmol/L (0.7-2.1) H* 07/03/16 03:23 A-a O2 Difference 77.0 mm/Hg 07/03/16 09:23 Respiratory Index 0.9 07/03/16 09:23 Sodium 140.0 mmol/l (132-148) 07/03/16 09:23 Glucose 143 mg/dl (75-110) H 07/03/16 09:23 Mechanical Rate 16.000 06/21/15 05:18 Spontaneous Rate 21.000 10/13/15 12:35 Liter Flow 5.0 07/02/16 22:28 Tidal Volume 365.000 10/13/15 12:35 Pressure Support 8.000 10/13/15 12:35 FiO2 30.0 % 07/03/16 09:23 CPAP 5.000 10/13/15 12:35 Crit Value Called To Dr eckert 07/03/16 03:23 Crit Value Called By Yadira kelly 07/03/16 03:23 Crit Value Read Back Y 07/03/16 03:23 Blood Gas Notified Time 332 07/03/16 03:23 Sodium 142 mmol/L (132-148) 04/19/18 08:07 Potassium 3.8 mmol/L (3.6-5.2) 04/19/18 08:07 Chloride 104 mmol/L (98-107) 04/19/18 08:07 Carbon Dioxide 30 mmol/L (22-30) 04/19/18 08:07 Anion Gap 12 (10-20) 04/19/18 08:07 BUN 13 mg/dL (9-20) 04/19/18 08:07 Creatinine 0.6 mg/dL (0.8-1.5) L 04/19/18 08:07 Est GFR ( Amer) > 60 04/19/18 08:07 Est GFR (Non-Af Amer) > 60 04/19/18 08:07 POC Glucose (mg/dL) 91 mg/dL (65-110) 12/09/17 19:06 Random Glucose 114 mg/dL (75-110) H 04/19/18 08:07 Hemoglobin A1c 5.8 % (4.2-6.5) 01/01/17 08:14 Lactic Acid 5.8 mmol/L (0.7-2.1) H* 06/14/15 06:25 Calcium 8.6 mg/dl (8.6-10.4) 04/19/18 08:07 Phosphorus 4.2 mg/dL (2.5-4.5) 04/19/18 08:07 Magnesium 2.0 mg/dL (1.6-2.3) 04/19/18 08:07 Ammonia < 9 umol/L (9-33) L 06/18/15 09:56 Total Bilirubin 0.5 mg/dL (0.2-1.3) 04/19/18 08:07 Total Creatine Kinase 3027 U/L (55-170) H 06/14/15 12:38 AST 22 U/L (17-59) 04/19/18 08:07 ALT 34 U/L (21-72) 04/19/18 08:07 CK-MB (Mass) 20.6 ng/mL (0.0-3.38) H 06/14/15 12:38 Alkaline Phosphatase 117 U/L (38-126) 04/19/18 08:07 Troponin I 10.7000 ng/mL (0.00-0.120) H* 06/14/15 06:25 Troponin I, Quant 9.8200 ng/mL (0.00-0.120) H* 06/14/15 12:38 NT-Pro-B Natriuret Pep 938 pg/mL (0-900) H 06/13/15 21:05 Prealbumin 23.3 mg/dL (17.6-36.0) 07/24/16 07:40 Triglycerides 69 mg/dL (0-149) 06/13/15 21:05 Total Protein 7.9 g/dL (6.3-8.3) 04/19/18 08:07 Albumin 3.5 g/dL (3.5-5.0) 04/19/18 08:07 Cholesterol 184 mg/dL (0-199) 06/13/15 21:05 Globulin 4.4 gm/dL (2.2-3.9) H 04/19/18 08:07 Albumin/Globulin Ratio 0.8 (1.0-2.1) L 04/19/18 08:07 LDL Cholesterol Direct 128 mg/dL (0-129) 06/13/15 21:05 HDL Cholesterol 36 mg/dL (30-70) 06/13/15 21:05 Prolactin 21.5 ng/mL (3.7-17.9) H 06/15/15 06:48 Arterial Blood Potassium 3.6 mmol/L (3.6-5.2) 07/03/16 09:23 Urine Color Yellow (YELLOW) 08/08/17 06:41 Urine Clarity Hazy (Clear) 08/08/17 06:41 Urine pH 8.0 (5.0-8.0) 08/08/17 06:41 Ur Specific [place] 1.011 (1.003-1.030) 08/08/17 06:41 Urine Protein Negative mg/dL (NEGATIVE) 08/08/17 06:41 Urine Glucose (UA) Normal mg/dL (Normal) 08/08/17 06:41 Urine Ketones Negative mg/dL (NEGATIVE) 08/08/17 06:41 Urine Blood Negative (NEGATIVE) 08/08/17 06:41 Urine Nitrate Negative (NEGATIVE) 08/08/17 06:41 Urine Bilirubin Negative (NEGATIVE) 08/08/17 06:41 Urine Urobilinogen Normal mg/dL (0.2-1.0) 08/08/17 06:41 Ur Leukocyte Esterase Neg Elida/uL (Negative) 08/08/17 06:41 Urine WBC (Auto) 3 /hpf (0-5) 08/08/17 06:41 Urine RBC (Auto) 6 /hpf (0-3) H 08/08/17 06:41 Ur Transition Epith Cell 1 /hpf (0-3) 07/12/15 20:10 Ur Squamous Epith Cells < 1 /hpf (0-5) 08/08/17 06:41 Calcium Oxalate Crystal Few /hpf (<OCC) H 11/16/15 07:43 Calcium Phos Quita (Auto) Rare /hpf (<OCC) 07/31/16 21:06 Triple Phos Crystals Occ /hpf (<OCC) H 03/17/17 23:39 Amorphous Sediment Rare /ul (<OCC) H 12/13/16 11:43 Urine Bacteria Occ (<OCC) H 05/28/17 19:27 Hyaline Casts 0-2 /lpf (0-2) 08/08/17 06:41 Urine Mucus Few (NONE) H 07/21/15 14:29 Urine Yeast (Budding) Few /hpf (NEGATIVE) H 11/16/15 07:43 Ur Random Creatinine 116.0 mg/dL 08/02/16 14:35 U Random Total Protein 13.0 mg/dL (0.0-12.0) H 08/02/16 14:35 Stool Leukocytes, Qual Negative (NEGATIVE) 04/26/17 15:30 Amikacin Trough 5.8 mg/L (4.0-8.0) 07/18/17 07:34 Gentamicin Trough 1.9 ug/mL (0.0-0.9) H 07/14/16 11:03 Vancomycin Trough < 5.0 ug/mL (5.0-10.0) L 06/18/15 14:10 Phenytoin 4.2 ug/mL (10-20) L 07/19/16 13:53 Free Phenytoin <0.5 mg/L (1.0-2.0) L 07/14/16 11:03 C. difficile Ag & Toxin Negative (NEGATIVE) 07/24/17 06:00 Hepatitis A IgM Ab Negative (NEGATIVE) 07/11/15 07:31 Hep Bs Antigen Negative (NEGATIVE) 07/11/15 07:31 Hep B Core IgM Ab Negative (NEGATIVE) 07/11/15 07:31 Hepatitis C Antibody Negative (NEGATIVE) 07/11/15 07:31 Blood Type O POSITIVE 11/24/15 14:10 Antibody Screen Negative 11/24/15 14:10 Attending/Attestation - Attestation I have personally seen and examined this patient.: Yes I have fully participated in the care of the patient.: Yes I have reviewed all pertinent clinical information, including history, physical exam and plan: Yes Notes (Text): 04/22/18 16:59 Medical attending: Patient has been here for extended period of time. Please see the above note as well as the previous medical records. Social workers have advised us that patient potentially can be leaving for [facility] either today or tommorow thank you Amandeep Chavis
[2018-04-22] MEDS: Rosuvastatin Calcium 2.5 mg Tab PEG SCH (21:34)
[2018-04-23] MEDS: Enoxaparin 40 mg Syringe SC SCH (10:06)
[2018-04-23] MEDS: levETIRAcetam 100 mg/ml (5ml) Oral Syringe PO SCH ×2 (10:06→17:29)
[2018-04-23] MEDS: Rosuvastatin Calcium 2.5 mg Tab PEG SCH (21:58)
[2018-04-24] MEDS: Enoxaparin 40 mg Syringe SC SCH (10:11)
[2018-04-24] MEDS: levETIRAcetam 100 mg/ml (5ml) Oral Syringe PO SCH ×2 (10:11→17:44)
[2018-04-24] MEDS: Rosuvastatin Calcium 2.5 mg Tab PEG SCH (21:32)
[2018-04-25] MEDS: levETIRAcetam 100 mg/ml (5ml) Oral Syringe PO SCH ×2 (10:24→18:14)
[2018-04-25] MEDS: Enoxaparin 40 mg Syringe SC SCH (10:24)
[2018-04-25] MEDS: Rosuvastatin Calcium 2.5 mg Tab PEG SCH (22:05)
[2018-04-26 08:06] LABS: ALB/GLOB RATIO 0.8 (1.0-2.1); ALBUMIN 3.4 g/dL (3.5-5.0); ALT/SGPT 34 U/L (21-72); AST/SGOT 21 U/L (17-59); BASO % 0.4 % (0.0-2.0); BLOOD UREA NITROGEN 15 mg/dL (9-20); CALCIUM 8.7 mg/dl (8.6-10.4); EOS # 0.3 K/uL (0.0-0.7); EOS % 3.2 % (0.0-4.0); GFR NON-AFRICAN AMERICAN > 60; HEMOGLOBIN 12.2 g/dL (12.0-18.0); LYMPH # 2.3 K/uL (1.0-4.3); LYMPH % 25.4 % (20.0-40.0); MEAN CELL VOLUME 88.8 fL (80.0-94.0); MEAN CORPUSCULAR HEMOGLOBIN 30.1 pg (27.0-31.0); MEAN CORPUSCULAR HGB CONC 33.9 g/dL (33.0-37.0); MONO # 0.8 K/uL (0.0-0.8); NEUT # 5.7 K/uL (1.8-7.0); NRBC % 0.1 % (0.0-2.0); RBC 4.07 Mil/uL (4.40-5.90); RED CELL DISTRIBUTION WIDTH 15.1 % (11.5-14.5); WHITE BLOOD COUNT 9.2 K/uL (4.8-10.8)
[2018-04-26] MEDS: levETIRAcetam 100 mg/ml (5ml) Oral Syringe PO SCH ×2 (10:49→17:38)
[2018-04-26] MEDS: Enoxaparin 40 mg Syringe SC SCH (10:49)
[2018-04-26] MEDS: Rosuvastatin Calcium 2.5 mg Tab PEG SCH (22:00)
--- NOTE | 2018-04-27 10:07 | CP.PCM.PN ---
<Alisia Pappas - Last Filed: 04/27/18 10:04> Subjective - Date & Time of Evaluation Date of Evaluation: 04/27/18 Time of Evaluation: 07:00 - Subjective Subjective: Medicine Progress Note: Patient seen and examined at bedside this morning. No acute events overnight. Patient is non-verbal due to anoxic brain injury suffered in 2014. ROS is unattainable. Objective - Vital Signs/Intake and Output Vital Signs (last 24 hours): Temp Pulse Resp BP Pulse Ox 99.3 F 77 20 98/65 L 96 04/27/18 07:47 04/27/18 07:47 04/27/18 07:47 04/27/18 07:47 04/27/18 07:47 Intake and Output: 04/27/18 04/27/18 06:59 18:59 Intake Total 1200 Output Total 751 Balance 449 - Medications Medications: Current Medications Aspirin (Aspirin Chewable) 81 mg PEG DAILY [facility] Last Admin: 04/26/18 10:49 Dose: 81 mg Carvedilol (Coreg) 3.125 mg PEG BID [facility] Last Admin: 04/26/18 17:38 Dose: 3.125 mg Enoxaparin Sodium (Lovenox) 40 mg SC DAILY [facility] Last Admin: 04/26/18 10:49 Dose: 40 mg Famotidine (Pepcid) 20 mg PEG DAILY [facility] Last Admin: 04/26/18 10:49 Dose: 20 mg Finasteride (Proscar) 5 mg PEG DAILY [facility] Last Admin: 04/26/18 10:49 Dose: 5 mg Levetiracetam (Keppra) 500 mg PO BID [facility] Last Admin: 04/26/18 17:38 Dose: 500 mg Rosuvastatin Calcium (Crestor) 2.5 mg PEG HS [facility] Last Admin: 04/26/18 22:00 Dose: 2.5 mg Scopolamine (Transderm-Scop) 1 patch TD Q3D [facility] Last Admin: 04/25/18 10:24 Dose: 1 patch Tamsulosin HCl (Flomax) 0.4 mg PEG DAILY [facility] Last Admin: 04/26/18 10:48 Dose: 0.4 mg - Labs Labs: 04/26/18 07:46 04/26/18 07:46 PT 10.6 SECONDS (9.7-12.2) 11/24/15 14:10 INR 1.0 11/24/15 14:10 APTT 25 SECONDS (21-34) 11/24/15 14:10 - Constitutional Appears: No Acute Distress, Chronically Ill - Head Exam Head Exam: ATRAUMATIC, NORMAL INSPECTION - Eye Exam Eye Exam: Normal appearance. absent: Scleral icterus - Neck Exam Additional comments: trach in place - Respiratory Exam Respiratory Exam: NORMAL BREATHING PATTERN - Cardiovascular Exam Cardiovascular Exam: REGULAR RHYTHM, +S1, +S2 - GI/Abdominal Exam Additional comments: G tube in place - clean/dry/intact Assessment and Plan - Assessment and Plan (Free Text) Assessment: (1) Anoxic encephalopathy Assessment & Plan: * s/p cardiac arrest in 05/2015 * no acute changes in mental status. * Pt has non spontaneous movements. * patient is currently on 45cc/hr on tube feedings * via PEG * Aspirin 81mg daily * Keppra 500mg bid Status: Chronic (2) Acute Respiratory failure Assessment & Plan: * Trach in place, continue daily monitoring for secretions. No change in management at this time. * Continue with aggressive suctioning multiple times a day per respiratory therapist if secretions are thickened * Scopolamine 1 patch TD Q3D JOO * Most recent chest xray: * 09/28/17: no active disease. No significant interval change compared to. Status: Resolved (3) History of Recurrent UTIs Assessment & Plan: * ID consult: Dr. Armstrong --> help appreciated * Patient is afebrile, no apparent leukocytosis * Patient is off IV abx since 08/05/17 * patient has condom catheter and Bladder scan PRN to prevent urinary retention Status: Acute (4) History of Urinary retention Assessment & Plan: * Tamsulosin 0.4mg daily * Finasteride 5 mg daily * Bladder scan up to 3x a week to monitor residual urine * patient has had history of recurrent UTIs Status: Chronic (5) Hypokalemia Assessment & Plan: * Monitor and replete Status: Acute (6) History of Sacral ulcer Assessment & Plan: * Healed * Cont with offloading/cushioning/turning * Continue frequent turning, protective ointment and skin checks. Status: Resolved (7) History of coronary artery disease Assessment & Plan: * s/p cardiac stents on 06/13/15 * Cont ASA 81mg via PEG daily * Cont Coreg 3.125mg PEG BID * Rosuvastatin 2.5mg PO HS Status: Acute (8) History of Seizures Assessment & Plan: * Continue Keppra 500mg PEG BID for seizure prophylaxis * Monitor for activity Status: Chronic (9) Lower extremity edema Assessment & Plan: * Improved * SCDs in place * Pressure ulcer boots on b/l * Continue to monitor Status: Chronic (10) Prophylactic measure Assessment & Plan: * Pepcid 20 mg PEG daily * Lovenox 40mg SC daily * SCDs and offloading boots * continue to turn and reposition q2hrs * Continue to monitor medication administrations and clinical presentation weekly labs. 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 Ramirez was previously consulted * Baker is working well in PEG tube place * 03/31/18 * IR reconsulted: Dr. Schroeder - Spoke with Dr. Schroeder who stated he will replace a G tube on 04/01/18 or 04/02/18 - Replaced the current baker with a new baker until the G tube is placed - s/p replacement of gastrostomy tube 04/02/18 - Lovenox and Aspirin will resume on 04/03/18 Disposition: Patient has prolonged hospitalization due to multiple co- morbidities. Per case management, unable to place patient <Jeison Moore - Last Filed: 04/27/18 17:34> Objective - Vital Signs/Intake and Output Vital Signs (last 24 hours): Temp Pulse Resp BP Pulse Ox 98.0 F 75 20 102/66 97 04/27/18 16:00 04/27/18 16:00 04/27/18 16:00 04/27/18 16:00 04/27/18 16:00 Intake and Output: 04/27/18 04/27/18 06:59 18:59 Intake Total 1200 700 Output Total 751 550 Balance 449 150 - Medications Medications: Current Medications Aspirin (Aspirin Chewable) 81 mg PEG DAILY [facility] Last Admin: 04/27/18 10:28 Dose: 81 mg Carvedilol (Coreg) 3.125 mg PEG BID [facility] Last Admin: 04/27/18 17:27 Dose: 3.125 mg Enoxaparin Sodium (Lovenox) 40 mg SC DAILY [facility] Last Admin: 04/27/18 10:29 Dose: 40 mg Famotidine (Pepcid) 20 mg PEG DAILY [facility] Last Admin: 04/27/18 10:28 Dose: 20 mg Finasteride (Proscar) 5 mg PEG DAILY [facility] Last Admin: 04/27/18 10:28 Dose: 5 mg Levetiracetam (Keppra) 500 mg PO BID [facility] Last Admin: 04/27/18 17:24 Dose: 500 mg Rosuvastatin Calcium (Crestor) 2.5 mg PEG HS [facility] Last Admin: 04/26/18 22:00 Dose: 2.5 mg Scopolamine (Transderm-Scop) 1 patch TD Q3D [facility] Last Admin: 04/25/18 10:24 Dose: 1 patch Tamsulosin HCl (Flomax) 0.4 mg PEG DAILY [facility] Last Admin: 04/27/18 10:28 Dose: 0.4 mg - Labs Labs: 04/26/18 07:46 04/26/18 07:46 PT 10.6 SECONDS (9.7-12.2) 11/24/15 14:10 INR 1.0 11/24/15 14:10 APTT 25 SECONDS (21-34) 11/24/15 14:10 Attending/Attestation - Attestation I have personally seen and examined this patient.: Yes I have fully participated in the care of the patient.: Yes I have reviewed all pertinent clinical information, including history, physical exam and plan: Yes Notes (Text): lying comfortable. [place]raini soft music is playing no changes noted,d/w RN continue supportive care stable for discharge to terminal [facility] I agree with the resident's documentation 04/27/18 17:34
[2018-04-27] MEDS: levETIRAcetam 100 mg/ml (5ml) Oral Syringe PO SCH ×2 (10:28→17:24)
[2018-04-27] MEDS: Enoxaparin 40 mg Syringe SC SCH (10:29)
[2018-04-27] MEDS: Rosuvastatin Calcium 2.5 mg Tab PEG SCH (21:15)
[2018-04-28] MEDS: levETIRAcetam 100 mg/ml (5ml) Oral Syringe PO SCH ×2 (10:45→17:34)
[2018-04-28] MEDS: Enoxaparin 40 mg Syringe SC SCH (10:45)
[2018-04-28] MEDS: Rosuvastatin Calcium 2.5 mg Tab PEG SCH (21:27)
--- NOTE | 2018-04-29 07:54 | CP.PCM.PN ---
<Alisia Pappas - Last Filed: 04/29/18 14:19> Subjective - Date & Time of Evaluation Date of Evaluation: 04/29/18 Time of Evaluation: 07:00 - Subjective Subjective: Medicine Progress Note: Patient seen and examined at bedside this morning. No acute events overnight. Patient is non-verbal due to anoxic brain injury suffered in 2014. ROS is unattainable. Objective - Vital Signs/Intake and Output Vital Signs (last 24 hours): Temp Pulse Resp BP Pulse Ox 98.7 F 63 20 121/81 100 04/28/18 23:45 04/28/18 23:45 04/28/18 23:45 04/28/18 23:45 04/28/18 23:45 Intake and Output: 04/29/18 04/29/18 06:59 18:59 Intake Total 1400 Output Total 1051 Balance 349 - Medications Medications: Current Medications Aspirin (Aspirin Chewable) 81 mg PEG DAILY [facility] Last Admin: 04/28/18 10:45 Dose: 81 mg Carvedilol (Coreg) 3.125 mg PEG BID [facility] Last Admin: 04/28/18 17:38 Dose: 3.125 mg Enoxaparin Sodium (Lovenox) 40 mg SC DAILY [facility] Last Admin: 04/28/18 10:45 Dose: 40 mg Famotidine (Pepcid) 20 mg PEG DAILY [facility] Last Admin: 04/28/18 10:45 Dose: 20 mg Finasteride (Proscar) 5 mg PEG DAILY [facility] Last Admin: 04/28/18 10:45 Dose: 5 mg Levetiracetam (Keppra) 500 mg PO BID [facility] Last Admin: 04/28/18 17:34 Dose: 500 mg Rosuvastatin Calcium (Crestor) 2.5 mg PEG HS [facility] Last Admin: 04/28/18 21:27 Dose: 2.5 mg Scopolamine (Transderm-Scop) 1 patch TD Q3D [facility] Last Admin: 04/28/18 10:46 Dose: 1 patch Tamsulosin HCl (Flomax) 0.4 mg PEG DAILY [facility] Last Admin: 04/28/18 10:45 Dose: 0.4 mg - Labs Labs: 04/26/18 07:46 04/26/18 07:46 PT 10.6 SECONDS (9.7-12.2) 11/24/15 14:10 INR 1.0 11/24/15 14:10 APTT 25 SECONDS (21-34) 11/24/15 14:10 - Constitutional Appears: Chronically Ill - Head Exam Head Exam: ATRAUMATIC, NORMAL INSPECTION - Neck Exam Additional comments: Trach in place - GI/Abdominal Exam Additional comments: G tube in place - clean/dry/intact Assessment and Plan - Assessment and Plan (Free Text) Assessment: (1) Anoxic encephalopathy Assessment & Plan: * s/p cardiac arrest in 05/2015 * no acute changes in mental status. * Pt has non spontaneous movements. * patient is currently on 45cc/hr on tube feedings * via PEG * Aspirin 81mg daily * Keppra 500mg bid Status: Chronic (2) Acute Respiratory failure Assessment & Plan: * Trach in place, continue daily monitoring for secretions. No change in management at this time. * Continue with aggressive suctioning multiple times a day per respiratory therapist if secretions are thickened * Scopolamine 1 patch TD Q3D JOO * Most recent chest xray: * 09/28/17: no active disease. No significant interval change compared to. Status: Resolved (3) History of Recurrent UTIs Assessment & Plan: * ID consult: Dr. Armstrong --> help appreciated * Patient is afebrile, no apparent leukocytosis * Patient is off IV abx since 08/05/17 * patient has condom catheter and Bladder scan PRN to prevent urinary retention Status: Acute (4) History of Urinary retention Assessment & Plan: * Tamsulosin 0.4mg daily * Finasteride 5 mg daily * Bladder scan up to 3x a week to monitor residual urine * patient has had history of recurrent UTIs Status: Chronic (5) Hypokalemia Assessment & Plan: * Monitor and replete Status: Acute (6) History of Sacral ulcer Assessment & Plan: * Healed * Cont with offloading/cushioning/turning * Continue frequent turning, protective ointment and skin checks. Status: Resolved (7) History of coronary artery disease Assessment & Plan: * s/p cardiac stents on 06/13/15 * Cont ASA 81mg via PEG daily * Cont Coreg 3.125mg PEG BID * Rosuvastatin 2.5mg PO HS Status: Acute (8) History of Seizures Assessment & Plan: * Continue Keppra 500mg PEG BID for seizure prophylaxis * Monitor for activity Status: Chronic (9) Lower extremity edema Assessment & Plan: * Improved * SCDs in place * Pressure ulcer boots on b/l * Continue to monitor Status: Chronic (10) Prophylactic measure Assessment & Plan: * Pepcid 20 mg PEG daily * Lovenox 40mg SC daily * SCDs and offloading boots * continue to turn and reposition q2hrs * Continue to monitor medication administrations and clinical presentation weekly labs. 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 Ramirez was previously consulted * Baker is working well in PEG tube place * 03/31/18 * IR reconsulted: Dr. Schroeder - Spoke with Dr. Schroeder who stated he will replace a G tube on 04/01/18 or 04/02/18 - Replaced the current baker with a new baker until the G tube is placed - s/p replacement of gastrostomy tube 04/02/18 - Lovenox and Aspirin will resume on 04/03/18 Disposition: Patient has prolonged hospitalization due to multiple co- morbidities. Per case management, unable to place patient <Jeison Moore - Last Filed: 04/29/18 18:46> Objective - Vital Signs/Intake and Output Vital Signs (last 24 hours): Temp Pulse Resp BP Pulse Ox 98.1 F 83 20 101/69 100 04/29/18 16:00 04/29/18 16:00 04/29/18 16:00 04/29/18 16:00 04/29/18 16:00 Intake and Output: 04/29/18 04/29/18 06:59 18:59 Intake Total 1400 700 Output Total 1051 550 Balance 349 150 - Medications Medications: Current Medications Aspirin (Aspirin Chewable) 81 mg PEG DAILY [facility] Last Admin: 04/29/18 10:41 Dose: 81 mg Carvedilol (Coreg) 3.125 mg PEG BID [facility] Last Admin: 04/29/18 16:59 Dose: 3.125 mg Enoxaparin Sodium (Lovenox) 40 mg SC DAILY [facility] Last Admin: 04/29/18 10:41 Dose: 40 mg Famotidine (Pepcid) 20 mg PEG DAILY [facility] Last Admin: 04/29/18 10:41 Dose: 20 mg Finasteride (Proscar) 5 mg PEG DAILY [facility] Last Admin: 04/29/18 10:41 Dose: 5 mg Levetiracetam (Keppra) 500 mg PO BID [facility] Last Admin: 04/29/18 16:59 Dose: 500 mg Rosuvastatin Calcium (Crestor) 2.5 mg PEG HS [facility] Last Admin: 04/28/18 21:27 Dose: 2.5 mg Scopolamine (Transderm-Scop) 1 patch TD Q3D [facility] Last Admin: 04/28/18 10:46 Dose: 1 patch Tamsulosin HCl (Flomax) 0.4 mg PEG DAILY [facility] Last Admin: 04/29/18 10:41 Dose: 0.4 mg - Labs Labs: 04/26/18 07:46 04/26/18 07:46 PT 10.6 SECONDS (9.7-12.2) 11/24/15 14:10 INR 1.0 11/24/15 14:10 APTT 25 SECONDS (21-34) 11/24/15 14:10 Attending/Attestation - Attestation I have personally seen and examined this patient.: No I have fully participated in the care of the patient.: Yes I have reviewed all pertinent clinical information, including history, physical exam and plan: Yes
[2018-04-29] MEDS: Enoxaparin 40 mg Syringe SC SCH (10:41)
[2018-04-29] MEDS: levETIRAcetam 100 mg/ml (5ml) Oral Syringe PO SCH ×2 (10:42→16:59)
[2018-04-29] MEDS: Rosuvastatin Calcium 2.5 mg Tab PEG SCH (21:11)
[2018-04-30] MEDS: Enoxaparin 40 mg Syringe SC SCH (10:24)
[2018-04-30] MEDS: levETIRAcetam 100 mg/ml (5ml) Oral Syringe PO SCH ×2 (10:24→18:20)
[2018-04-30] MEDS: Rosuvastatin Calcium 2.5 mg Tab PEG SCH (21:17)
[2018-05-01] MEDS: levETIRAcetam 100 mg/ml (5ml) Oral Syringe PO SCH ×2 (10:51→17:54)
[2018-05-01] MEDS: Enoxaparin 40 mg Syringe SC SCH (11:00)
[2018-05-01] MEDS: Rosuvastatin Calcium 2.5 mg Tab PEG SCH (21:47)
[2018-05-02] MEDS: levETIRAcetam 100 mg/ml (5ml) Oral Syringe PO SCH ×2 (09:42→17:57)
[2018-05-02] MEDS: Enoxaparin 40 mg Syringe SC SCH (09:43)
[2018-05-02] MEDS: Rosuvastatin Calcium 2.5 mg Tab PEG SCH (21:48)
[2018-05-03] MEDS: levETIRAcetam 100 mg/ml (5ml) Oral Syringe PO SCH ×2 (11:45→18:42)
[2018-05-03] MEDS: Enoxaparin 40 mg Syringe SC SCH (11:46)
[2018-05-03] MEDS: Rosuvastatin Calcium 2.5 mg Tab PEG SCH (21:44)
--- NOTE | 2018-05-04 07:48 | CP.PCM.PN ---
Subjective - Date & Time of Evaluation Date of Evaluation: 05/04/18 Time of Evaluation: 07:00 - Subjective Subjective: Medicine Progress Note: Patient seen and examined at bedside this morning. No acute events overnight. Patient is non-verbal due to anoxic brain injury suffered in 2014. ROS is unattainable. Objective - Vital Signs/Intake and Output Vital Signs (last 24 hours): Temp Pulse Resp BP Pulse Ox 98 F 69 20 113/69 98 05/04/18 07:23 05/04/18 07:23 05/04/18 07:23 05/04/18 07:23 05/04/18 07:23 Intake and Output: 05/04/18 05/04/18 06:59 18:59 Intake Total 1700 Output Total 650 Balance 1050 - Medications Medications: Current Medications Aspirin (Aspirin Chewable) 81 mg PEG DAILY [facility] Last Admin: 05/03/18 11:46 Dose: 81 mg Carvedilol (Coreg) 3.125 mg PEG BID [facility] Last Admin: 05/03/18 18:42 Dose: 3.125 mg Enoxaparin Sodium (Lovenox) 40 mg SC DAILY [facility] Last Admin: 05/03/18 11:46 Dose: 40 mg Famotidine (Pepcid) 20 mg PEG DAILY [facility] Last Admin: 05/03/18 11:46 Dose: 20 mg Finasteride (Proscar) 5 mg PEG DAILY [facility] Last Admin: 05/03/18 11:46 Dose: 5 mg Levetiracetam (Keppra) 500 mg PO BID [facility] Last Admin: 05/03/18 18:42 Dose: 500 mg Rosuvastatin Calcium (Crestor) 2.5 mg PEG HS [facility] Last Admin: 05/03/18 21:44 Dose: 2.5 mg Scopolamine (Transderm-Scop) 1 patch TD Q3D [facility] Last Admin: 05/01/18 10:51 Dose: 1 patch Tamsulosin HCl (Flomax) 0.4 mg PEG DAILY [facility] Last Admin: 05/03/18 11:46 Dose: 0.4 mg - Labs Labs: 04/26/18 07:46 04/26/18 07:46 PT 10.6 SECONDS (9.7-12.2) 11/24/15 14:10 INR 1.0 11/24/15 14:10 APTT 25 SECONDS (21-34) 11/24/15 14:10 - Constitutional Appears: Chronically Ill - Head Exam Head Exam: ATRAUMATIC, NORMAL INSPECTION - Neck Exam Additional comments: Trach in place - GI/Abdominal Exam Additional comments: G tube in place - clean/dry/intact Assessment and Plan - Assessment and Plan (Free Text) Assessment: (1) Anoxic encephalopathy Assessment & Plan: * s/p cardiac arrest in 05/2015 * no acute changes in mental status. * Pt has non spontaneous movements. * patient is currently on 45cc/hr on tube feedings * via PEG * Aspirin 81mg daily * Keppra 500mg bid Status: Chronic (2) Acute Respiratory failure Assessment & Plan: * Trach in place, continue daily monitoring for secretions. No change in management at this time. * Continue with aggressive suctioning multiple times a day per respiratory therapist if secretions are thickened * Scopolamine 1 patch TD Q3D JOO * Most recent chest xray: * 09/28/17: no active disease. No significant interval change compared to. Status: Resolved (3) History of Recurrent UTIs Assessment & Plan: * ID consult: Dr. Armstrong --> help appreciated * Patient is afebrile, no apparent leukocytosis * Patient is off IV abx since 08/05/17 * patient has condom catheter and Bladder scan PRN to prevent urinary retention Status: Acute (4) History of Urinary retention Assessment & Plan: * Tamsulosin 0.4mg daily * Finasteride 5 mg daily * Bladder scan up to 3x a week to monitor residual urine * patient has had history of recurrent UTIs Status: Chronic (5) Hypokalemia Assessment & Plan: * Monitor and replete Status: Acute (6) History of Sacral ulcer Assessment & Plan: * Healed * Cont with offloading/cushioning/turning * Continue frequent turning, protective ointment and skin checks. Status: Resolved (7) History of coronary artery disease Assessment & Plan: * s/p cardiac stents on 06/13/15 * Cont ASA 81mg via PEG daily * Cont Coreg 3.125mg PEG BID * Rosuvastatin 2.5mg PO HS Status: Acute (8) History of Seizures Assessment & Plan: * Continue Keppra 500mg PEG BID for seizure prophylaxis * Monitor for activity Status: Chronic (9) Lower extremity edema Assessment & Plan: * Improved * SCDs in place * Pressure ulcer boots on b/l * Continue to monitor Status: Chronic (10) Prophylactic measure Assessment & Plan: * Pepcid 20 mg PEG daily * Lovenox 40mg SC daily * SCDs and offloading boots * continue to turn and reposition q2hrs * Continue to monitor medication administrations and clinical presentation weekly labs. 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 Ramirez was previously consulted * Baker is working well in PEG tube place * 03/31/18 * IR reconsulted: Dr. Schroeder - Spoke with Dr. Schroeder who stated he will replace a G tube on 04/01/18 or 04/02/18 - Replaced the current baker with a new baker until the G tube is placed - s/p replacement of gastrostomy tube 04/02/18 - Lovenox and Aspirin will resume on 04/03/18 Disposition: Patient has prolonged hospitalization due to multiple co- morbidities. Per case management, unable to place patient
[2018-05-04] MEDS: levETIRAcetam 100 mg/ml (5ml) Oral Syringe PO SCH ×2 (10:21→17:23)
[2018-05-04] MEDS: Enoxaparin 40 mg Syringe SC SCH (10:27)
[2018-05-04] MEDS: Rosuvastatin Calcium 2.5 mg Tab PEG SCH (21:25)
[2018-05-05] MEDS: levETIRAcetam 100 mg/ml (5ml) Oral Syringe PO SCH ×2 (11:41→17:40)
[2018-05-05] MEDS: Enoxaparin 40 mg Syringe SC SCH (11:46)
[2018-05-05] MEDS: Rosuvastatin Calcium 2.5 mg Tab PEG SCH (21:59)
--- NOTE | 2018-05-06 07:35 | CP.PCM.PN ---
Subjective - Date & Time of Evaluation Date of Evaluation: 05/06/18 Time of Evaluation: 07:00 - Subjective Subjective: Medicine Progress Note: Patient seen and examined at bedside this morning. No acute events overnight. Patient is non-verbal due to anoxic brain injury suffered in 2014. ROS is unattainable. Objective - Vital Signs/Intake and Output Vital Signs (last 24 hours): Temp Pulse Resp BP Pulse Ox 98.3 F 83 20 107/74 97 05/05/18 23:33 05/05/18 23:33 05/05/18 23:33 05/05/18 23:33 05/05/18 23:33 Intake and Output: 05/06/18 05/06/18 06:59 18:59 Intake Total 1800 Output Total 900 Balance 900 - Medications Medications: Current Medications Aspirin (Aspirin Chewable) 81 mg PEG DAILY [facility] Last Admin: 05/05/18 11:47 Dose: 81 mg Carvedilol (Coreg) 3.125 mg PEG BID [facility] Last Admin: 05/05/18 17:40 Dose: 3.125 mg Enoxaparin Sodium (Lovenox) 40 mg SC DAILY [facility] Last Admin: 05/05/18 11:46 Dose: 40 mg Famotidine (Pepcid) 20 mg PEG DAILY [facility] Last Admin: 05/05/18 11:40 Dose: 20 mg Finasteride (Proscar) 5 mg PEG DAILY [facility] Last Admin: 05/05/18 11:40 Dose: 5 mg Levetiracetam (Keppra) 500 mg PO BID [facility] Last Admin: 05/05/18 17:40 Dose: 500 mg Rosuvastatin Calcium (Crestor) 2.5 mg PEG HS [facility] Last Admin: 05/05/18 21:59 Dose: 2.5 mg Scopolamine (Transderm-Scop) 1 patch TD Q3D [facility] Last Admin: 05/04/18 10:28 Dose: 1 patch Tamsulosin HCl (Flomax) 0.4 mg PEG DAILY [facility] Last Admin: 05/05/18 11:40 Dose: 0.4 mg - Labs Labs: 04/26/18 07:46 04/26/18 07:46 PT 10.6 SECONDS (9.7-12.2) 11/24/15 14:10 INR 1.0 11/24/15 14:10 APTT 25 SECONDS (21-34) 11/24/15 14:10 - Constitutional Appears: Chronically Ill - Head Exam Head Exam: ATRAUMATIC, NORMAL INSPECTION - Neck Exam Additional comments: trach in place - GI/Abdominal Exam Additional comments: G tube in place - clean/dry/intact Assessment and Plan - Assessment and Plan (Free Text) Assessment: (1) Anoxic encephalopathy Assessment & Plan: * s/p cardiac arrest in 05/2015 * no acute changes in mental status. * Pt has non spontaneous movements. * patient is currently on 45cc/hr on tube feedings * via PEG * Aspirin 81mg daily * Keppra 500mg bid Status: Chronic (2) Acute Respiratory failure Assessment & Plan: * Trach in place, continue daily monitoring for secretions. No change in management at this time. * Continue with aggressive suctioning multiple times a day per respiratory therapist if secretions are thickened * Scopolamine 1 patch TD Q3D JOO * Most recent chest xray: * 09/28/17: no active disease. No significant interval change compared to. Status: Resolved (3) History of Recurrent UTIs Assessment & Plan: * ID consult: Dr. Armstrong --> help appreciated * Patient is afebrile, no apparent leukocytosis * Patient is off IV abx since 08/05/17 * patient has condom catheter and Bladder scan PRN to prevent urinary retention Status: Acute (4) History of Urinary retention Assessment & Plan: * Tamsulosin 0.4mg daily * Finasteride 5 mg daily * Bladder scan up to 3x a week to monitor residual urine * patient has had history of recurrent UTIs Status: Chronic (5) Hypokalemia Assessment & Plan: * Monitor and replete Status: Acute (6) History of Sacral ulcer Assessment & Plan: * Healed * Cont with offloading/cushioning/turning * Continue frequent turning, protective ointment and skin checks. Status: Resolved (7) History of coronary artery disease Assessment & Plan: * s/p cardiac stents on 06/13/15 * Cont ASA 81mg via PEG daily * Cont Coreg 3.125mg PEG BID * Rosuvastatin 2.5mg PO HS Status: Acute (8) History of Seizures Assessment & Plan: * Continue Keppra 500mg PEG BID for seizure prophylaxis * Monitor for activity Status: Chronic (9) Lower extremity edema Assessment & Plan: * Improved * SCDs in place * Pressure ulcer boots on b/l * Continue to monitor Status: Chronic (10) Prophylactic measure Assessment & Plan: * Pepcid 20 mg PEG daily * Lovenox 40mg SC daily * SCDs and offloading boots * continue to turn and reposition q2hrs * Continue to monitor medication administrations and clinical presentation weekly labs. 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 Ramirez was previously consulted * Baker is working well in PEG tube place * 03/31/18 * IR reconsulted: Dr. Schroeder - Spoke with Dr. Schroeder who stated he will replace a G tube on 04/01/18 or 04/02/18 - Replaced the current baker with a new baker until the G tube is placed - s/p replacement of gastrostomy tube 04/02/18 - Lovenox and Aspirin will resume on 04/03/18 Disposition: Patient has prolonged hospitalization due to multiple co- morbidities. Per case management, unable to place patient
[2018-05-06] MEDS: Enoxaparin 40 mg Syringe SC SCH (11:32)
[2018-05-06] MEDS: levETIRAcetam 100 mg/ml (5ml) Oral Syringe PO SCH ×2 (11:32→17:32)
[2018-05-06] MEDS: Rosuvastatin Calcium 2.5 mg Tab PEG SCH (21:20)
[2018-05-07] MEDS: Enoxaparin 40 mg Syringe SC SCH (10:05)
[2018-05-07] MEDS: levETIRAcetam 100 mg/ml (5ml) Oral Syringe PO SCH ×2 (10:05→17:21)
[2018-05-07] MEDS: Rosuvastatin Calcium 2.5 mg Tab PEG SCH (21:05)
[2018-05-08] MEDS: levETIRAcetam 100 mg/ml (5ml) Oral Syringe PO SCH ×2 (11:16→17:51)
[2018-05-08] MEDS: Enoxaparin 40 mg Syringe SC SCH (11:21)
[2018-05-08] MEDS: Rosuvastatin Calcium 2.5 mg Tab PEG SCH (21:32)
[2018-05-09] MEDS: Enoxaparin 40 mg Syringe SC SCH (09:27)
[2018-05-09] MEDS: levETIRAcetam 100 mg/ml (5ml) Oral Syringe PO SCH ×2 (09:28→17:21)
[2018-05-09] MEDS: Rosuvastatin Calcium 2.5 mg Tab PEG SCH (21:42)
[2018-05-10] MEDS: Enoxaparin 40 mg Syringe SC SCH (09:38)
[2018-05-10] MEDS: levETIRAcetam 100 mg/ml (5ml) Oral Syringe PO SCH ×2 (09:39→17:14)
[2018-05-10] MEDS: Albuterol-Ipratrop 3 mg / 0.5 (3 ml) UD INH SCH (19:18)
[2018-05-10] MEDS: Acetylcysteine 20% Inhal Soln (4ml) INH SCH (19:18)
[2018-05-10] MEDS: Rosuvastatin Calcium 2.5 mg Tab PEG SCH (21:27)
[2018-05-11] MEDS: Albuterol-Ipratrop 3 mg / 0.5 (3 ml) UD INH SCH ×4 (01:28→19:55)
[2018-05-11] MEDS: Acetylcysteine 20% Inhal Soln (4ml) INH SCH ×4 (01:28→19:54)
[2018-05-11] MEDS: levETIRAcetam 100 mg/ml (5ml) Oral Syringe PO SCH ×2 (09:30→17:30)
[2018-05-11] MEDS: Enoxaparin 40 mg Syringe SC SCH (09:30)
--- NOTE | 2018-05-11 14:58 | CP.PCM.PN ---
<Ben Martell R - Last Filed: 05/11/18 14:55> Subjective - Date & Time of Evaluation Date of Evaluation: 05/11/18 Time of Evaluation: 10:00 - Subjective Subjective: PGY-[address] Hallman. No acute events overnight. Patient is non-verbal due to anoxic brain injury suffered in 2014. ROS is unattainable. Objective - Vital Signs/Intake and Output Vital Signs (last 24 hours): Temp Pulse Resp BP Pulse Ox 98.7 F 80 20 115/75 97 05/11/18 09:06 05/11/18 09:06 05/11/18 09:06 05/11/18 09:06 05/11/18 09:06 Intake and Output: 05/11/18 05/11/18 06:59 18:59 Intake Total 1800 900 Output Total 900 Balance 900 900 - Medications Medications: Current Medications Acetylcysteine (Acetylcysteine 20%) 4 ml INH RQ6 [facility] Last Admin: 05/11/18 13:49 Dose: 4 ml Albuterol/Ipratropium (Duoneb 3 Mg/0.5 Mg (3 Ml) Ud) 3 ml INH RQ6 [facility] Last Admin: 05/11/18 13:49 Dose: 3 ml Aspirin (Aspirin Chewable) 81 mg PEG DAILY [facility] Last Admin: 05/11/18 09:30 Dose: 81 mg Carvedilol (Coreg) 3.125 mg PEG BID [facility] Last Admin: 05/11/18 09:29 Dose: 3.125 mg Enoxaparin Sodium (Lovenox) 40 mg SC DAILY [facility] Last Admin: 05/11/18 09:30 Dose: 40 mg Famotidine (Pepcid) 20 mg PEG DAILY [facility] Last Admin: 05/11/18 09:29 Dose: 20 mg Finasteride (Proscar) 5 mg PEG DAILY [facility] Last Admin: 05/11/18 09:29 Dose: 5 mg Levetiracetam (Keppra) 500 mg PO BID [facility] Last Admin: 05/11/18 09:30 Dose: 500 mg Rosuvastatin Calcium (Crestor) 2.5 mg PEG HS [facility] Last Admin: 05/10/18 21:27 Dose: 2.5 mg Scopolamine (Transderm-Scop) 1 patch TD Q3D [facility] Last Admin: 06/18/18 09:39 Dose: 1 patch Tamsulosin HCl (Flomax) 0.4 mg PEG DAILY [facility] Last Admin: 05/11/18 09:29 Dose: 0.4 mg - Labs Labs: 04/26/18 07:46 04/26/18 07:46 PT 10.6 SECONDS (9.7-12.2) 11/24/15 14:10 INR 1.0 11/24/15 14:10 APTT 25 SECONDS (21-34) 11/24/15 14:10 - Additional Findings Additional findings: - Constitutional Appears: Chronically Ill - Head Exam Head Exam: ATRAUMATIC, NORMAL INSPECTION - Neck Exam Additional comments: trach in place - GI/Abdominal Exam Additional comments: G tube in place - clean/dry/intact Assessment and Plan - Assessment and Plan (Free Text) Assessment: (1) Anoxic encephalopathy Assessment & Plan: * s/p cardiac arrest in 05/2015 * no acute changes in mental status. * Pt has non spontaneous movements. * patient is currently on 45cc/hr on tube feedings * via PEG * Aspirin 81mg daily * Keppra 500mg bid Status: Chronic (2) Acute Respiratory failure Assessment & Plan: * Trach in place, continue daily monitoring for secretions. No change in management at this time. * Continue with aggressive suctioning multiple times a day per respiratory therapist if secretions are thickened * Scopolamine 1 patch TD Q3D [facility] * Duoneb 3ml INH RQ6H * Mucomysit 4ml INH RQ6H * Most recent chest xray: * 09/28/17: no active disease. No significant interval change compared to. Status: Resolved (3) History of Recurrent UTIs Assessment & Plan: * ID consult: Dr. Armstrong --> help appreciated * Patient is afebrile, no apparent leukocytosis * Patient is off IV abx since 08/05/17 * patient has condom catheter and Bladder scan PRN to prevent urinary retention Status: Acute (4) History of Urinary retention Assessment & Plan: * Tamsulosin 0.4mg daily * Finasteride 5 mg daily * Bladder scan up to 3x a week to monitor residual urine * patient has had history of recurrent UTIs Status: Chronic (5) Hypokalemia Assessment & Plan: * Monitor and replete Status: Acute (6) History of Sacral ulcer Assessment & Plan: * Healed * Cont with offloading/cushioning/turning * Continue frequent turning, protective ointment and skin checks. Status: Resolved (7) History of coronary artery disease Assessment & Plan: * s/p cardiac stents on 06/13/15 * Cont ASA 81mg via PEG daily * Cont Coreg 3.125mg PEG BID * Rosuvastatin 2.5mg PO HS Status: Acute (8) History of Seizures Assessment & Plan: * Continue Keppra 500mg PEG BID for seizure prophylaxis * Monitor for activity Status: Chronic (9) Lower extremity edema Assessment & Plan: * Improved * SCDs in place * Pressure ulcer boots on b/l * Continue to monitor Status: Chronic (10) Prophylactic measure Assessment & Plan: * Pepcid 20 mg PEG daily * Lovenox 40mg SC daily * SCDs and offloading boots * continue to turn and reposition q2hrs * Continue to monitor medication administrations and clinical presentation weekly labs. 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 Ramirez was previously consulted * Baker is working well in PEG tube place * 03/31/18 * IR reconsulted: Dr. Schroeder - Spoke with Dr. Schroeder who stated he will replace a G tube on 04/01/18 or 04/02/18 - Replaced the current baker with a new baker until the G tube is placed - s/p replacement of gastrostomy tube 04/02/18 - Lovenox and Aspirin will resume on 04/03/18 Disposition: Plan to place patient in LTAC in the works, per case management. <Donavan Hallman - Last Filed: 05/27/18 15:04> Objective - Vital Signs/Intake and Output Vital Signs (last 24 hours): Temp Pulse Resp BP Pulse Ox 98.2 F 70 20 117/72 100 05/27/18 07:00 05/27/18 07:00 05/27/18 07:00 05/27/18 07:00 05/27/18 07:00 Intake and Output: 05/27/18 05/27/18 06:59 18:59 Intake Total 900 Output Total 800 Balance 100 - Medications Medications: Current Medications Acetylcysteine (Acetylcysteine 20%) 4 ml INH RQ6 [facility] Last Admin: 05/27/18 13:29 Dose: 4 ml Albuterol/Ipratropium (Duoneb 3 Mg/0.5 Mg (3 Ml) Ud) 3 ml INH RQ6 [facility] Last Admin: 05/27/18 13:29 Dose: 3 ml Aspirin (Aspirin Chewable) 81 mg PEG DAILY [facility] Last Admin: 05/27/18 10:07 Dose: 81 mg Carvedilol (Coreg) 3.125 mg PEG BID [facility] Last Admin: 05/27/18 10:08 Dose: 3.125 mg Enoxaparin Sodium (Lovenox) 40 mg SC DAILY [facility] Last Admin: 05/27/18 10:08 Dose: 40 mg Famotidine (Pepcid) 20 mg PEG DAILY [facility] Last Admin: 05/27/18 10:07 Dose: 20 mg Finasteride (Proscar) 5 mg PEG DAILY [facility] Last Admin: 05/27/18 10:07 Dose: 5 mg Levetiracetam (Keppra) 500 mg PO BID [facility] Last Admin: 05/27/18 10:07 Dose: 500 mg Rosuvastatin Calcium (Crestor) 2.5 mg PEG HS [facility] Last Admin: 05/26/18 21:47 Dose: 2.5 mg Scopolamine (Transderm-Scop) 1 patch TD Q3D [facility] Last Admin: 05/25/18 10:04 Dose: 1 patch Tamsulosin HCl (Flomax) 0.4 mg PEG DAILY [facility] Last Admin: 05/27/18 10:08 Dose: 0.4 mg - Labs Labs: 04/26/18 07:46 04/26/18 07:46 PT 10.6 SECONDS (9.7-12.2) 11/24/15 14:10 INR 1.0 11/24/15 14:10 APTT 25 SECONDS (21-34) 11/24/15 14:10 Attending/Attestation - Attestation I have personally seen and examined this patient.: Yes I have fully participated in the care of the patient.: Yes I have reviewed all pertinent clinical information, including history, physical exam and plan: Yes Notes (Text): (1) Anoxic encephalopathy
[2018-05-11] MEDS: Rosuvastatin Calcium 2.5 mg Tab PEG SCH (22:00)
[2018-05-12] MEDS: Acetylcysteine 20% Inhal Soln (4ml) INH SCH ×4 (01:13→20:11)
[2018-05-12] MEDS: Albuterol-Ipratrop 3 mg / 0.5 (3 ml) UD INH SCH ×4 (01:13→20:10)
[2018-05-12] MEDS: Enoxaparin 40 mg Syringe SC SCH (10:14)
[2018-05-12] MEDS: levETIRAcetam 100 mg/ml (5ml) Oral Syringe PO SCH ×2 (10:14→17:40)
[2018-05-12] MEDS: Rosuvastatin Calcium 2.5 mg Tab PEG SCH (21:15)
[2018-05-13] MEDS: Acetylcysteine 20% Inhal Soln (4ml) INH SCH ×4 (01:37→20:34)
[2018-05-13] MEDS: Albuterol-Ipratrop 3 mg / 0.5 (3 ml) UD INH SCH ×4 (01:37→20:34)
[2018-05-13] MEDS: Enoxaparin 40 mg Syringe SC SCH (10:36)
[2018-05-13] MEDS: levETIRAcetam 100 mg/ml (5ml) Oral Syringe PO SCH ×2 (10:42→17:50)
--- NOTE | 2018-05-13 16:28 | CP.PCM.PN ---
<AlirezaAmandamaylin E - Last Filed: 05/13/18 16:25> Subjective - Date & Time of Evaluation Date of Evaluation: 05/13/18 Time of Evaluation: 07:40 - Subjective Subjective: Medicine progress note ( Dr. Moore's service) Patient was seen and examined at bedside. Patient is clinically unchanged. As per nursing staff, no acute issues overnight. 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 Objective - Vital Signs/Intake and Output Vital Signs (last 24 hours): Temp Pulse Resp BP Pulse Ox 97.9 F 85 20 100/67 99 05/13/18 07:44 05/13/18 07:44 05/13/18 07:44 05/13/18 07:44 05/13/18 07:44 Intake and Output: 05/13/18 05/13/18 06:59 18:59 Intake Total 900 800 Output Total 300 500 Balance 600 300 - Medications Medications: Current Medications Acetylcysteine (Acetylcysteine 20%) 4 ml INH RQ6 [facility] Last Admin: 05/13/18 13:41 Dose: 4 ml Albuterol/Ipratropium (Duoneb 3 Mg/0.5 Mg (3 Ml) Ud) 3 ml INH RQ6 [facility] Last Admin: 05/13/18 13:41 Dose: 3 ml Aspirin (Aspirin Chewable) 81 mg PEG DAILY [facility] Last Admin: 05/13/18 10:35 Dose: 81 mg Carvedilol (Coreg) 3.125 mg PEG BID [facility] Last Admin: 05/13/18 10:34 Dose: 3.125 mg Enoxaparin Sodium (Lovenox) 40 mg SC DAILY [facility] Last Admin: 05/13/18 10:36 Dose: 40 mg Famotidine (Pepcid) 20 mg PEG DAILY [facility] Last Admin: 05/13/18 10:36 Dose: 20 mg Finasteride (Proscar) 5 mg PEG DAILY [facility] Last Admin: 05/13/18 10:41 Dose: 5 mg Levetiracetam (Keppra) 500 mg PO BID [facility] Last Admin: 05/13/18 10:42 Dose: 500 mg Rosuvastatin Calcium (Crestor) 2.5 mg PEG HS [facility] Last Admin: 05/12/18 21:15 Dose: 2.5 mg Scopolamine (Transderm-Scop) 1 patch TD Q3D [facility] Last Admin: 05/13/18 10:42 Dose: 1 patch Tamsulosin HCl (Flomax) 0.4 mg PEG DAILY [facility] Last Admin: 05/13/18 10:34 Dose: 0.4 mg - Labs Labs: 04/26/18 07:46 04/26/18 07:46 PT 10.6 SECONDS (9.7-12.2) 11/24/15 14:10 INR 1.0 11/24/15 14:10 APTT 25 SECONDS (21-34) 11/24/15 14:10 - Constitutional Appears: No Acute Distress - Head Exam Head Exam: ATRAUMATIC - Neck Exam Additional comments: trach in place - Respiratory Exam Respiratory Exam: Rhonchi - Cardiovascular Exam Cardiovascular Exam: REGULAR RHYTHM, +S1, +S2 - GI/Abdominal Exam GI & Abdominal Exam: Soft Additional comments: G tube in place - clean/dry/intact - Extremities Exam Additional comments: Pressure ulcer boot bilaterally Assessment and Plan (1) Anoxic encephalopathy Assessment & Plan: * s/p cardiac arrest in 05/2015 * no acute changes in mental status. * Pt has non spontaneous movements. * patient is currently on 45cc/hr on tube feedings * via PEG * Aspirin 81mg daily * Keppra 500mg bid Status: Chronic (2) Respiratory failure Assessment & Plan: * Trach in place, continue daily monitoring for secretions. No change in management at this time. * Continue with aggressive suctioning multiple times a day per respiratory therapist if secretions are thickened * Scopolamine 1 patch TD Q3D [facility] * Duoneb 3ml INH RQ6H * Mucomysit 4ml INH RQ6H * Most recent chest xray: * 09/28/17: no active disease. No significant interval change compared to. Status: Chronic (3) Urinary tract infection Assessment & Plan: Recurrent ID consult: Dr. Armstrong --> help appreciated * Patient is afebrile, no apparent leukocytosis * Patient is off IV abx since 08/05/17 * patient has condom catheter and Bladder scan PRN to prevent urinary retention Status: Acute (4) Urinary retention Assessment & Plan: * Tamsulosin 0.4mg daily * Finasteride 5 mg daily * Bladder scan up to 3x a week to monitor residual urine * patient has had history of recurrent UTIs Status: Acute (5) Hypokalemia Assessment & Plan: Resolved as per recent lab, 04/26/18 Status: Resolved (6) Sacral ulcer Assessment & Plan: Healed * Cont with offloading/cushioning/turning * Continue frequent turning, protective ointment and skin checks. Status: Resolved (7) History of coronary artery disease Assessment & Plan: * s/p cardiac stents on 06/13/15 * Cont ASA 81mg via PEG daily * Cont Coreg 3.125mg PEG BID * Rosuvastatin 2.5mg PO HS Status: Acute (8) Seizures Assessment & Plan: * Continue Keppra 500mg PEG BID for seizure prophylaxis * Monitor for activity Status: Acute (9) Lower extremity edema Assessment & Plan: * Improved * SCDs in place * Pressure ulcer boots on b/l * Continue to monitor Status: Acute (10) PEG tube malfunction Assessment & Plan: * 01/06/18 * GI consulted, recs appreciated * Upper endoscopy showed LA grade B, esophagitis, small hiatal hernia, patchy erythematous mucosa in the stomach, dislodged PEG tube * PEG replaced * 03/12/18 * GI - Dr. Ramirez was previously consulted * Baker is working well in PEG tube place * 03/31/18 * IR reconsulted: Dr. Schroeder - Spoke with Dr. Schroeder who stated he will replace a G tube on 04/01/18 or 04/02/18 - Replaced the current baker with a new baker until the G tube is placed - s/p replacement of gastrostomy tube 04/02/18 - Lovenox and Aspirin will resume on 04/03/18 Disposition: Plan to place patient in LTAC in the works, per case management. Status: Acute (11) Prophylactic measure Assessment & Plan: * Pepcid 20 mg PEG daily * Lovenox 40mg SC daily * SCDs and offloading boots * continue to turn and reposition q2hrs * Continue to monitor medication administrations and clinical presentation weekly labs. * vasoline ointment applied to feet prn to prevent hyperkeratosis * Please hold feeding from 10pm-6am, placed into nursing communication Disposition: Plan to place patient in LTAC in the works, per case management. All management discussed with Dr. Moore Status: Acute <Jeison Moore - Last Filed: 05/13/18 17:22> Objective - Vital Signs/Intake and Output Vital Signs (last 24 hours): Temp Pulse Resp BP Pulse Ox 97.9 F 85 20 100/67 99 05/13/18 07:44 05/13/18 07:44 05/13/18 07:44 05/13/18 07:44 05/13/18 07:44 Intake and Output: 05/13/18 05/13/18 06:59 18:59 Intake Total 900 800 Output Total 300 500 Balance 600 300 - Medications Medications: Current Medications Acetylcysteine (Acetylcysteine 20%) 4 ml INH RQ6 [facility] Last Admin: 05/13/18 13:41 Dose: 4 ml Albuterol/Ipratropium (Duoneb 3 Mg/0.5 Mg (3 Ml) Ud) 3 ml INH RQ6 [facility] Last Admin: 05/13/18 13:41 Dose: 3 ml Aspirin (Aspirin Chewable) 81 mg PEG DAILY [facility] Last Admin: 05/13/18 10:35 Dose: 81 mg Carvedilol (Coreg) 3.125 mg PEG BID [facility] Last Admin: 05/13/18 10:34 Dose: 3.125 mg Enoxaparin Sodium (Lovenox) 40 mg SC DAILY [facility] Last Admin: 05/13/18 10:36 Dose: 40 mg Famotidine (Pepcid) 20 mg PEG DAILY [facility] Last Admin: 05/13/18 10:36 Dose: 20 mg Finasteride (Proscar) 5 mg PEG DAILY [facility] Last Admin: 05/13/18 10:41 Dose: 5 mg Levetiracetam (Keppra) 500 mg PO BID [facility] Last Admin: 05/13/18 10:42 Dose: 500 mg Rosuvastatin Calcium (Crestor) 2.5 mg PEG HS [facility] Last Admin: 05/12/18 21:15 Dose: 2.5 mg Scopolamine (Transderm-Scop) 1 patch TD Q3D [facility] Last Admin: 05/13/18 10:42 Dose: 1 patch Tamsulosin HCl (Flomax) 0.4 mg PEG DAILY [facility] Last Admin: 05/13/18 10:34 Dose: 0.4 mg - Labs Labs: 04/26/18 07:46 04/26/18 07:46 PT 10.6 SECONDS (9.7-12.2) 11/24/15 14:10 INR 1.0 11/24/15 14:10 APTT 25 SECONDS (21-34) 11/24/15 14:10 Attending/Attestation - Attestation I have personally seen and examined this patient.: Yes I have fully participated in the care of the patient.: Yes I have reviewed all pertinent clinical information, including history, physical exam and plan: Yes Notes (Text): seen and examined.lying comfortable,no changes d/w resident I agree with the documentation 05/13/18 17:21
[2018-05-13] MEDS: Rosuvastatin Calcium 2.5 mg Tab PEG SCH (21:09)
[2018-05-14] MEDS: Acetylcysteine 20% Inhal Soln (4ml) INH SCH ×4 (02:08→19:13)
[2018-05-14] MEDS: Albuterol-Ipratrop 3 mg / 0.5 (3 ml) UD INH SCH ×4 (02:08→19:13)
[2018-05-14] MEDS: Enoxaparin 40 mg Syringe SC SCH (10:58)
[2018-05-14] MEDS: levETIRAcetam 100 mg/ml (5ml) Oral Syringe PO SCH ×2 (10:58→17:35)
[2018-05-14] MEDS: Rosuvastatin Calcium 2.5 mg Tab PEG SCH (21:14)
[2018-05-15] MEDS: Acetylcysteine 20% Inhal Soln (4ml) INH SCH ×4 (02:20→19:27)
[2018-05-15] MEDS: Albuterol-Ipratrop 3 mg / 0.5 (3 ml) UD INH SCH ×3 (02:20→13:19)
[2018-05-15] MEDS: levETIRAcetam 100 mg/ml (5ml) Oral Syringe PO SCH ×2 (10:01→18:40)
[2018-05-15] MEDS: Enoxaparin 40 mg Syringe SC SCH (10:01)
[2018-05-15] MEDS: Rosuvastatin Calcium 2.5 mg Tab PEG SCH (21:16)
[2018-05-16] MEDS: Acetylcysteine 20% Inhal Soln (4ml) INH SCH ×4 (02:20→21:13)
[2018-05-16] MEDS: Albuterol-Ipratrop 3 mg / 0.5 (3 ml) UD INH SCH ×4 (02:20→21:13)
[2018-05-16] MEDS: levETIRAcetam 100 mg/ml (5ml) Oral Syringe PO SCH ×2 (09:50→17:45)
[2018-05-16] MEDS: Enoxaparin 40 mg Syringe SC SCH (09:51)
[2018-05-16] MEDS: Rosuvastatin Calcium 2.5 mg Tab PEG SCH (21:02)
[2018-05-17] MEDS: Albuterol-Ipratrop 3 mg / 0.5 (3 ml) UD INH SCH ×4 (02:48→19:59)
[2018-05-17] MEDS: Acetylcysteine 20% Inhal Soln (4ml) INH SCH ×4 (02:48→19:59)
[2018-05-17] MEDS: levETIRAcetam 100 mg/ml (5ml) Oral Syringe PO SCH ×2 (09:46→17:43)
[2018-05-17] MEDS: Enoxaparin 40 mg Syringe SC SCH (09:47)
[2018-05-17] MEDS: Rosuvastatin Calcium 2.5 mg Tab PEG SCH (21:39)
[2018-05-18] MEDS: Albuterol-Ipratrop 3 mg / 0.5 (3 ml) UD INH SCH ×4 (02:21→20:56)
[2018-05-18] MEDS: Acetylcysteine 20% Inhal Soln (4ml) INH SCH ×4 (02:21→20:56)
--- NOTE | 2018-05-18 09:29 | CP.PCM.PN ---
Subjective - Date & Time of Evaluation Date of Evaluation: 05/18/18 Time of Evaluation: 07:00 - Subjective Subjective: Medicine progress note ( Dr. Chavis's service) Patient was seen and examined at bedside. Patient is clinically unchanged. As per nursing staff, no acute issues overnight. 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 Objective - Vital Signs/Intake and Output Vital Signs (last 24 hours): Temp Pulse Resp BP Pulse Ox 98.7 F 73 20 116/73 99 05/18/18 00:00 05/18/18 00:00 05/18/18 00:00 05/18/18 00:00 05/18/18 00:00 Intake and Output: 05/18/18 05/18/18 06:59 18:59 Intake Total 1700 Output Total 1700 Balance 0 - Medications Medications: Current Medications Acetylcysteine (Acetylcysteine 20%) 4 ml INH RQ6 [facility] Last Admin: 05/18/18 07:45 Dose: 4 ml Albuterol/Ipratropium (Duoneb 3 Mg/0.5 Mg (3 Ml) Ud) 3 ml INH RQ6 [facility] Last Admin: 05/18/18 07:45 Dose: 3 ml Carvedilol (Coreg) 3.125 mg PEG BID [facility] Last Admin: 05/17/18 17:43 Dose: 3.125 mg Enoxaparin Sodium (Lovenox) 40 mg SC DAILY [facility] Last Admin: 05/17/18 09:47 Dose: 40 mg Famotidine (Pepcid) 20 mg PEG DAILY [facility] Last Admin: 05/17/18 09:46 Dose: 20 mg Finasteride (Proscar) 5 mg PEG DAILY [facility] Last Admin: 05/17/18 09:46 Dose: 5 mg Levetiracetam (Keppra) 500 mg PO BID [facility] Last Admin: 05/17/18 17:43 Dose: 500 mg Rosuvastatin Calcium (Crestor) 2.5 mg PEG HS [facility] Last Admin: 05/17/18 21:39 Dose: 2.5 mg Scopolamine (Transderm-Scop) 1 patch TD Q3D [facility] Last Admin: 05/16/18 09:51 Dose: 1 patch Tamsulosin HCl (Flomax) 0.4 mg PEG DAILY [facility] Last Admin: 05/17/18 09:46 Dose: 0.4 mg - Labs Labs: 04/26/18 07:46 04/26/18 07:46 PT 10.6 SECONDS (9.7-12.2) 11/24/15 14:10 INR 1.0 11/24/15 14:10 APTT 25 SECONDS (21-34) 11/24/15 14:10 - Constitutional Appears: No Acute Distress - Head Exam Head Exam: ATRAUMATIC - Neck Exam Additional comments: trach in place - Respiratory Exam Respiratory Exam: Rhonchi Additional comments: Tracheostomy in place - Cardiovascular Exam Cardiovascular Exam: REGULAR RHYTHM, +S1, +S2 - GI/Abdominal Exam GI & Abdominal Exam: Soft Additional comments: G tube in place - clean/dry/intact - Extremities Exam Additional comments: Pressure ulcer boot bilaterally - Back Exam Back Exam: absent: rash noted - Neurological Exam Neurological Exam: absent: Alert, Awake, Oriented x3 Additional comments: Anoxic brain injury Assessment and Plan (1) Anoxic encephalopathy Assessment & Plan: * s/p cardiac arrest in 05/2015 * no acute changes in mental status. * Pt has non spontaneous movements. * patient is currently on 45cc/hr on tube feedings * via PEG * Aspirin 81mg daily * Keppra 500mg bid Status: Chronic (2) Respiratory failure Assessment & Plan: Trach in place, continue daily monitoring for secretions. No change in management at this time. * Continue with aggressive suctioning multiple times a day per respiratory therapist if secretions are thickened * Scopolamine 1 patch TD Q3D [facility] * Duoneb 3ml INH RQ6H * Mucomysit 4ml INH RQ6H * Most recent chest xray: * 09/28/17: no active disease. No significant interval change compared to. Status: Chronic Status: Chronic (3) Urinary tract infection Assessment & Plan: Recurrent ID consult: Dr. Armstrong --> help appreciated * Patient is afebrile, no apparent leukocytosis * Patient is off IV abx since 08/05/17 * patient has condom catheter and Bladder scan PRN to prevent urinary retention Status: Acute (4) Urinary retention Assessment & Plan: * Tamsulosin 0.4mg daily * Finasteride 5 mg daily * Bladder scan up to 3x a week to monitor residual urine * patient has had history of recurrent UTIs Status: Acute (5) Hypokalemia Assessment & Plan: Resolved as per recent lab, 04/26/18 Will continue to monitor with subsequent lab Status: Resolved (6) Sacral ulcer Assessment & Plan: Healed * Cont with offloading/cushioning/turning * Continue frequent turning, protective ointment and skin checks. Status: Resolved (7) History of coronary artery disease Assessment & Plan: * s/p cardiac stents on 06/13/15 * Cont ASA 81mg via PEG daily * Cont Coreg 3.125mg PEG BID * Rosuvastatin 2.5mg PO HS Status: Acute (8) Seizures Assessment & Plan: * Continue Keppra 500mg PEG BID for seizure prophylaxis * Monitor for activity Status: Acute (9) Lower extremity edema Assessment & Plan: * Improved * SCDs in place * Pressure ulcer boots on b/l * Continue to monitor Status: Acute (10) PEG tube malfunction Assessment & Plan: * 01/06/18 * GI consulted, recs appreciated * Upper endoscopy showed LA grade B, esophagitis, small hiatal hernia, patchy erythematous mucosa in the stomach, dislodged PEG tube * PEG replaced * 03/12/18 * GI - Dr. Ramirez was previously consulted * Baker is working well in PEG tube place * 03/31/18 * IR reconsulted: Dr. Schroeder - Spoke with Dr. Schroeder who stated he will replace a G tube on 04/01/18 or 04/02/18 - Replaced the current baker with a new baker until the G tube is placed - s/p replacement of gastrostomy tube 04/02/18 - Lovenox and Aspirin will resume on 04/03/18 Status: Acute (11) Prophylactic measure Assessment & Plan: * Pepcid 20 mg PEG daily * Lovenox 40mg SC daily * SCDs and offloading boots * continue to turn and reposition q2hrs * Continue to monitor medication administrations and clinical presentation weekly labs. * vasoline ointment applied to feet prn to prevent hyperkeratosis * Please hold feeding from 10pm-6am, placed into nursing communication Disposition: Plan to place patient in LTAC in the works, per case management. All management discussed with Dr. Chavis Status: Acute
[2018-05-18] MEDS: Enoxaparin 40 mg Syringe SC SCH (10:30)
[2018-05-18] MEDS: levETIRAcetam 100 mg/ml (5ml) Oral Syringe PO SCH ×2 (10:31→17:58)
[2018-05-18] MEDS: Rosuvastatin Calcium 2.5 mg Tab PEG SCH (21:12)
[2018-05-19] MEDS: Albuterol-Ipratrop 3 mg / 0.5 (3 ml) UD INH SCH ×4 (01:44→19:52)
[2018-05-19] MEDS: Acetylcysteine 20% Inhal Soln (4ml) INH SCH ×4 (01:45→19:52)
[2018-05-19] MEDS: levETIRAcetam 100 mg/ml (5ml) Oral Syringe PO SCH ×2 (11:48→17:39)
[2018-05-19] MEDS: Enoxaparin 40 mg Syringe SC SCH (11:49)
[2018-05-19] MEDS: Rosuvastatin Calcium 2.5 mg Tab PEG SCH (21:15)
[2018-05-20] MEDS: Acetylcysteine 20% Inhal Soln (4ml) INH SCH ×4 (01:35→20:43)
[2018-05-20] MEDS: Albuterol-Ipratrop 3 mg / 0.5 (3 ml) UD INH SCH ×4 (01:35→20:43)
--- NOTE | 2018-05-20 08:49 | CP.PCM.PN ---
Subjective - Date & Time of Evaluation Date of Evaluation: 05/20/18 Time of Evaluation: 07:30 - Subjective Subjective: Medicine progress note ( Dr. Chavis's service) Patient was seen and examined at bedside. Patient is clinically unchanged. As per nursing staff, no acute issues overnight. 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 Objective - Vital Signs/Intake and Output Vital Signs (last 24 hours): Temp Pulse Resp BP Pulse Ox 98.6 F 63 20 114/78 97 05/20/18 08:37 05/20/18 08:37 05/20/18 08:37 05/20/18 08:37 05/20/18 08:37 Intake and Output: 05/20/18 05/20/18 06:59 18:59 Intake Total 900 Output Total 1301 Balance -401 - Medications Medications: Current Medications Acetylcysteine (Acetylcysteine 20%) 4 ml INH RQ6 [facility] Last Admin: 05/20/18 08:24 Dose: 4 ml Albuterol/Ipratropium (Duoneb 3 Mg/0.5 Mg (3 Ml) Ud) 3 ml INH RQ6 [facility] Last Admin: 05/20/18 08:24 Dose: 3 ml Carvedilol (Coreg) 3.125 mg PEG BID [facility] Last Admin: 05/19/18 17:39 Dose: 3.125 mg Enoxaparin Sodium (Lovenox) 40 mg SC DAILY [facility] Last Admin: 05/19/18 11:49 Dose: 40 mg Famotidine (Pepcid) 20 mg PEG DAILY [facility] Last Admin: 05/19/18 11:49 Dose: 20 mg Finasteride (Proscar) 5 mg PEG DAILY [facility] Last Admin: 05/19/18 11:48 Dose: 5 mg Levetiracetam (Keppra) 500 mg PO BID [facility] Last Admin: 05/19/18 17:39 Dose: 500 mg Rosuvastatin Calcium (Crestor) 2.5 mg PEG HS [facility] Last Admin: 05/19/18 21:15 Dose: 2.5 mg Scopolamine (Transderm-Scop) 1 patch TD Q3D [facility] Last Admin: 05/19/18 11:49 Dose: 1 patch Tamsulosin HCl (Flomax) 0.4 mg PEG DAILY [facility] Last Admin: 05/19/18 11:49 Dose: 0.4 mg - Labs Labs: 04/26/18 07:46 04/26/18 07:46 PT 10.6 SECONDS (9.7-12.2) 11/24/15 14:10 INR 1.0 11/24/15 14:10 APTT 25 SECONDS (21-34) 11/24/15 14:10 - Constitutional Appears: No Acute Distress - Respiratory Exam Additional comments: Tracheostomy in place - Cardiovascular Exam Cardiovascular Exam: REGULAR RHYTHM, +S1, +S2 - GI/Abdominal Exam GI & Abdominal Exam: Soft Additional comments: G tube in place - clean/dry/intact - Extremities Exam Additional comments: Pressure ulcer boot bilaterally - Neurological Exam Neurological Exam: absent: Alert, Awake, Oriented x3 Neuro motor strength exam: Left Upper Extremity: 0, Right Upper Extremity: 0, Left Lower Extremity: 0, Right Lower Extremity: 0 Additional comments: Anoxic brain injury - Skin Skin Exam: Normal Color Assessment and Plan (1) Anoxic encephalopathy Assessment & Plan: * s/p cardiac arrest in 05/2015 * no acute changes in mental status. * Pt has non spontaneous movements. * patient is currently on 45cc/hr on tube feedings * via PEG * Aspirin 81mg daily * Keppra 500mg bid Status: Chronic (2) Respiratory failure Assessment & Plan: Trach in place, continue daily monitoring for secretions. No change in management at this time. * Continue with aggressive suctioning multiple times a day per respiratory therapist if secretions are thickened * Scopolamine 1 patch TD Q3D [facility] * Duoneb 3ml INH RQ6H * Mucomysit 4ml INH RQ6H * Most recent chest xray: * 09/28/17: no active disease. No significant interval change compared to. Status: Chronic (3) Urinary tract infection Assessment & Plan: Recurrent ID consult: Dr. Armstrong --> help appreciated * Patient is afebrile, no apparent leukocytosis * Patient is off IV abx since 08/05/17 * patient has condom catheter and Bladder scan PRN to prevent urinary retention Status: Acute (4) Urinary retention Assessment & Plan: * Tamsulosin 0.4mg daily * Finasteride 5 mg daily * Bladder scan up to 3x a week to monitor residual urine * patient has had history of recurrent UTIs Status: Acute (5) Hypokalemia Assessment & Plan: Resolved as per recent lab, 04/26/18 Will continue to monitor with subsequent lab Status: Resolved (6) Sacral ulcer Assessment & Plan: Healed * Cont with offloading/cushioning/turning * Continue frequent turning, protective ointment and skin checks. Status: Resolved (7) History of coronary artery disease Assessment & Plan: * s/p cardiac stents on 06/13/15 * Cont ASA 81mg via PEG daily * Cont Coreg 3.125mg PEG BID * Rosuvastatin 2.5mg PO HS Status: Acute (8) Seizures Assessment & Plan: * Continue Keppra 500mg PEG BID for seizure prophylaxis * Monitor for activity Status: Acute (9) Lower extremity edema Assessment & Plan: * Improved * SCDs in place * Pressure ulcer boots on b/l * Continue to monitor Status: Acute (10) PEG tube malfunction Assessment & Plan: * 01/06/18 * GI consulted, recs appreciated * Upper endoscopy showed LA grade B, esophagitis, small hiatal hernia, patchy erythematous mucosa in the stomach, dislodged PEG tube * PEG replaced * 03/12/18 * GI - Dr. Ramirez was previously consulted * Baker is working well in PEG tube place * 03/31/18 * IR reconsulted: Dr. Schroeder - Spoke with Dr. Schroeder who stated he will replace a G tube on 04/01/18 or 04/02/18 - Replaced the current baker with a new baker until the G tube is placed - s/p replacement of gastrostomy tube 04/02/18 - Lovenox and Aspirin will resume on 04/03/18 Status: Acute (11) Prophylactic measure Assessment & Plan: * Pepcid 20 mg PEG daily * Lovenox 40mg SC daily * SCDs and offloading boots * continue to turn and reposition q2hrs * Continue to monitor medication administrations and clinical presentation weekly labs. * vasoline ointment applied to feet prn to prevent hyperkeratosis * Please hold feeding from 10pm-6am, placed into nursing communication Disposition: Plan to place patient in LTAC in the works, per case management. All management discussed with Dr. Chavis Status: Acute
[2018-05-20] MEDS: Enoxaparin 40 mg Syringe SC SCH (10:39)
[2018-05-20] MEDS: levETIRAcetam 100 mg/ml (5ml) Oral Syringe PO SCH ×2 (10:40→17:37)
[2018-05-20] MEDS: Rosuvastatin Calcium 2.5 mg Tab PEG SCH (21:49)
[2018-05-21] MEDS: Acetylcysteine 20% Inhal Soln (4ml) INH SCH ×4 (02:56→19:23)
[2018-05-21] MEDS: Albuterol-Ipratrop 3 mg / 0.5 (3 ml) UD INH SCH ×4 (02:57→19:24)
[2018-05-21] MEDS: levETIRAcetam 100 mg/ml (5ml) Oral Syringe PO SCH ×2 (10:11→17:07)
[2018-05-21] MEDS: Enoxaparin 40 mg Syringe SC SCH (10:11)
[2018-05-21] MEDS: Rosuvastatin Calcium 2.5 mg Tab PEG SCH (21:23)
[2018-05-22] MEDS: Acetylcysteine 20% Inhal Soln (4ml) INH SCH ×4 (01:19→20:10)
[2018-05-22] MEDS: Albuterol-Ipratrop 3 mg / 0.5 (3 ml) UD INH SCH ×4 (01:19→20:10)
[2018-05-22] MEDS: levETIRAcetam 100 mg/ml (5ml) Oral Syringe PO SCH ×2 (10:22→17:38)
[2018-05-22] MEDS: Enoxaparin 40 mg Syringe SC SCH (10:22)
[2018-05-22] MEDS: Rosuvastatin Calcium 2.5 mg Tab PEG SCH (21:45)
[2018-05-23] MEDS: Acetylcysteine 20% Inhal Soln (4ml) INH SCH ×4 (04:56→20:06)
[2018-05-23] MEDS: Albuterol-Ipratrop 3 mg / 0.5 (3 ml) UD INH SCH ×4 (04:56→20:06)
[2018-05-23] MEDS: levETIRAcetam 100 mg/ml (5ml) Oral Syringe PO SCH ×2 (09:47→17:55)
[2018-05-23] MEDS: Enoxaparin 40 mg Syringe SC SCH (09:47)
[2018-05-23] MEDS: Rosuvastatin Calcium 2.5 mg Tab PEG SCH (21:36)
[2018-05-24] MEDS: Acetylcysteine 20% Inhal Soln (4ml) INH SCH ×3 (01:46→19:09)
[2018-05-24] MEDS: Albuterol-Ipratrop 3 mg / 0.5 (3 ml) UD INH SCH ×3 (01:46→19:09)
[2018-05-24] MEDS: levETIRAcetam 100 mg/ml (5ml) Oral Syringe PO SCH ×2 (09:47→17:55)
[2018-05-24] MEDS: Rosuvastatin Calcium 2.5 mg Tab PEG SCH (21:41)
[2018-05-25] MEDS: Albuterol-Ipratrop 3 mg / 0.5 (3 ml) UD INH SCH ×4 (01:42→19:29)
[2018-05-25] MEDS: Acetylcysteine 20% Inhal Soln (4ml) INH SCH ×4 (01:42→19:29)
--- NOTE | 2018-05-25 07:46 | CP.PCM.PN ---
<Myrna Vega Y - Last Filed: 05/25/18 11:29> Subjective - Date & Time of Evaluation Date of Evaluation: 05/25/18 Time of Evaluation: 07:43 - Subjective Subjective: PGY-[address] Moore. Patient was seen and examined at bedside today. Nursing reports no overnight issues. Patient is clinically unchanged. 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 Objective - Vital Signs/Intake and Output Vital Signs (last 24 hours): Temp Pulse Resp BP Pulse Ox 97.9 F 61 20 108/72 99 05/24/18 23:34 05/24/18 23:34 05/24/18 23:34 05/24/18 23:34 05/24/18 23:34 Intake and Output: 05/25/18 05/25/18 06:59 18:59 Intake Total 400 400 Output Total 1050 600 Balance -650 -200 - Medications Medications: Current Medications Acetylcysteine (Acetylcysteine 20%) 4 ml INH RQ6 [facility] Last Admin: 05/25/18 01:42 Dose: 4 ml Albuterol/Ipratropium (Duoneb 3 Mg/0.5 Mg (3 Ml) Ud) 3 ml INH RQ6 [facility] Last Admin: 05/25/18 01:42 Dose: 3 ml Carvedilol (Coreg) 3.125 mg PEG BID [facility] Last Admin: 05/24/18 17:54 Dose: 3.125 mg Enoxaparin Sodium (Lovenox) 40 mg SC DAILY [facility] Famotidine (Pepcid) 20 mg PEG DAILY [facility] Last Admin: 05/24/18 09:47 Dose: 20 mg Finasteride (Proscar) 5 mg PEG DAILY [facility] Last Admin: 05/24/18 09:47 Dose: 5 mg Levetiracetam (Keppra) 500 mg PO BID [facility] Last Admin: 05/24/18 17:55 Dose: 500 mg Rosuvastatin Calcium (Crestor) 2.5 mg PEG HS [facility] Last Admin: 05/24/18 21:41 Dose: 2.5 mg Scopolamine (Transderm-Scop) 1 patch TD Q3D [facility] Last Admin: 05/22/18 10:22 Dose: 1 patch Tamsulosin HCl (Flomax) 0.4 mg PEG DAILY [facility] Last Admin: 05/24/18 09:47 Dose: 0.4 mg - Labs Labs: 04/26/18 07:46 04/26/18 07:46 PT 10.6 SECONDS (9.7-12.2) 11/24/15 14:10 INR 1.0 11/24/15 14:10 APTT 25 SECONDS (21-34) 11/24/15 14:10 - Constitutional Appears: Non-toxic, No Acute Distress - Head Exam Head Exam: ATRAUMATIC, NORMOCEPHALIC - Eye Exam Eye Exam: EOMI, Normal appearance - ENT Exam ENT Exam: Mucous Membranes Moist - Respiratory Exam Respiratory Exam: Clear to Ausculation Bilateral, NORMAL BREATHING PATTERN Additional comments: trach in place. low mucus secretions on suction. - Cardiovascular Exam Cardiovascular Exam: REGULAR RHYTHM, +S1, +S2. absent: Murmur - GI/Abdominal Exam GI & Abdominal Exam: Soft, Normal Bowel Sounds Additional comments: G tube in place: clean, dry, intact. - Extremities Exam Extremities Exam: Normal Capillary Refill Additional comments: bilateral pressure ulcer boots - Neurological Exam Neurological Exam: absent: Alert, Awake, Oriented x3 Additional comments: anoxic brain injury - Skin Skin Exam: Normal Color, Warm Assessment and Plan - Assessment and Plan (Free Text) Plan: (1) Anoxic encephalopathy Assessment & Plan: * s/p cardiac arrest in 05/2015 * no acute changes in mental status. * Pt has non spontaneous movements. * patient is currently on 45cc/hr on tube feedings * via PEG * Aspirin 81mg daily * Keppra 500mg bid Status: Chronic (2) Respiratory failure Assessment & Plan: Trach in place, continue daily monitoring for secretions. No change in management at this time. * Continue with aggressive suctioning multiple times a day per respiratory therapist if secretions are thickened * Scopolamine 1 patch TD Q3D [facility] * Duoneb 3ml INH RQ6H * Mucomyst 4ml INH RQ6H * Most recent chest xray: * 09/28/17: no active disease. No significant interval change compared to. Status: Chronic (3) Urinary tract infection Assessment & Plan: Recurrent ID consult: Dr. Armstrong --> help appreciated * Patient is afebrile, no apparent leukocytosis * Patient is off IV abx since 08/05/17 * patient has condom catheter and Bladder scan PRN to prevent urinary retention Status: Acute (4) Urinary retention Assessment & Plan: * Tamsulosin 0.4mg daily * Finasteride 5 mg daily * Bladder scan up to 3x a week to monitor residual urine * patient has had history of recurrent UTIs Status: Acute (5) Hypokalemia Assessment & Plan: Resolved as per recent lab, 04/26/18 Will continue to monitor with subsequent lab Status: Resolved (6) Sacral ulcer Assessment & Plan: Healed * Cont with offloading/cushioning/turning * Continue frequent turning, protective ointment and skin checks. Status: Resolved (7) History of coronary artery disease Assessment & Plan: * s/p cardiac stents on 06/13/15 * Cont ASA 81mg via PEG daily * Cont Coreg 3.125mg PEG BID * Rosuvastatin 2.5mg PO HS Status: Acute (8) Seizures Assessment & Plan: * Continue Keppra 500mg PEG BID for seizure prophylaxis * Monitor for activity Status: Acute (9) Lower extremity edema Assessment & Plan: * Improved * SCDs in place * Pressure ulcer boots on b/l * Continue to monitor Status: Acute (10) PEG tube malfunction Assessment & Plan: * 01/06/18 * GI consulted, recs appreciated * Upper endoscopy showed LA grade B, esophagitis, small hiatal hernia, patchy erythematous mucosa in the stomach, dislodged PEG tube * PEG replaced * 03/12/18 * GI - Dr. Ramirez was previously consulted * Baker is working well in PEG tube place * 03/31/18 * IR reconsulted: Dr. Schroeder - Spoke with Dr. Schroeder who stated he will replace a G tube on 04/01/18 or 04/02/18 - Replaced the current baker with a new baker until the G tube is placed - s/p replacement of gastrostomy tube 04/02/18 - Lovenox and Aspirin will resume on 04/03/18 Status: Acute (11) Prophylactic measure Assessment & Plan: * Pepcid 20 mg PEG daily * Lovenox 40mg SC daily * SCDs and offloading boots * continue to turn and reposition q2hrs * Continue to monitor medication administrations and clinical presentation weekly labs. * vasoline ointment applied to feet prn to prevent hyperkeratosis * Please hold feeding from 10pm-6am, placed into nursing communication Disposition: Plan to place patient in LTAC in the works, per case management. Myrna Vega PGY-1. Case discussed with Dr. Moore. <Jeison Moore - Last Filed: 05/25/18 19:50> Objective - Vital Signs/Intake and Output Vital Signs (last 24 hours): Temp Pulse Resp BP Pulse Ox 99.4 F 80 20 104/62 95 05/25/18 17:21 05/25/18 17:21 05/25/18 17:21 05/25/18 17:21 05/25/18 17:21 Intake and Output: 05/25/18 05/26/18 18:59 06:59 Intake Total 1300 Output Total 800 Balance 500 - Medications Medications: Current Medications Acetylcysteine (Acetylcysteine 20%) 4 ml INH RQ6 [facility] Last Admin: 05/25/18 19:29 Dose: 4 ml Albuterol/Ipratropium (Duoneb 3 Mg/0.5 Mg (3 Ml) Ud) 3 ml INH RQ6 [facility] Last Admin: 05/25/18 19:29 Dose: 3 ml Aspirin (Aspirin Chewable) 81 mg PEG DAILY [facility] Last Admin: 05/25/18 10:03 Dose: 81 mg Carvedilol (Coreg) 3.125 mg PEG BID [facility] Last Admin: 05/25/18 18:33 Dose: 3.125 mg Enoxaparin Sodium (Lovenox) 40 mg SC DAILY [facility] Last Admin: 05/25/18 10:05 Dose: 40 mg Famotidine (Pepcid) 20 mg PEG DAILY [facility] Last Admin: 05/25/18 10:04 Dose: 20 mg Finasteride (Proscar) 5 mg PEG DAILY [facility] Last Admin: 05/25/18 10:04 Dose: 5 mg Levetiracetam (Keppra) 500 mg PO BID [facility] Last Admin: 05/25/18 18:33 Dose: 500 mg Rosuvastatin Calcium (Crestor) 2.5 mg PEG HS [facility] Last Admin: 05/24/18 21:41 Dose: 2.5 mg Scopolamine (Transderm-Scop) 1 patch TD Q3D [facility] Last Admin: 05/25/18 10:04 Dose: 1 patch Tamsulosin HCl (Flomax) 0.4 mg PEG DAILY [facility] Last Admin: 05/25/18 10:04 Dose: 0.4 mg - Labs Labs: 04/26/18 07:46 04/26/18 07:46 PT 10.6 SECONDS (9.7-12.2) 11/24/15 14:10 INR 1.0 11/24/15 14:10 APTT 25 SECONDS (21-34) 11/24/15 14:10 Attending/Attestation - Attestation I have personally seen and examined this patient.: Yes I have fully participated in the care of the patient.: Yes I have reviewed all pertinent clinical information, including history, physical exam and plan: Yes Notes (Text): seen and examined by me d/w resident I agree with the documentation of the assessment and the plan 05/25/18 19:49
[2018-05-25] MEDS: levETIRAcetam 100 mg/ml (5ml) Oral Syringe PO SCH ×2 (10:04→18:33)
[2018-05-25] MEDS: Enoxaparin 40 mg Syringe SC SCH (10:05)
[2018-05-25] MEDS: Rosuvastatin Calcium 2.5 mg Tab PEG SCH (21:13)
[2018-05-26] MEDS: Acetylcysteine 20% Inhal Soln (4ml) INH SCH ×3 (01:33→13:05)
[2018-05-26] MEDS: Albuterol-Ipratrop 3 mg / 0.5 (3 ml) UD INH SCH ×3 (01:33→13:05)
[2018-05-26] MEDS: levETIRAcetam 100 mg/ml (5ml) Oral Syringe PO SCH ×2 (10:29→18:14)
[2018-05-26] MEDS: Enoxaparin 40 mg Syringe SC SCH (10:29)
[2018-05-26] MEDS: Rosuvastatin Calcium 2.5 mg Tab PEG SCH (21:47)
[2018-05-27] MEDS: Albuterol-Ipratrop 3 mg / 0.5 (3 ml) UD INH SCH ×4 (01:33→19:28)
[2018-05-27] MEDS: Acetylcysteine 20% Inhal Soln (4ml) INH SCH ×4 (01:33→19:28)
[2018-05-27] MEDS: levETIRAcetam 100 mg/ml (5ml) Oral Syringe PO SCH ×2 (10:07→18:08)
[2018-05-27] MEDS: Enoxaparin 40 mg Syringe SC SCH (10:08)
--- NOTE | 2018-05-27 11:16 | CP.PCM.PN ---
<Myrna Vega Y - Last Filed: 05/27/18 11:38> Subjective - Date & Time of Evaluation Date of Evaluation: 05/27/18 Time of Evaluation: 11:15 - Subjective Subjective: PGY-[address] Moore. Patient seen and examined today at bedside in no acute distress. Nursing reports no overnight issues. Patient is clinically unchanged. Patient is non- verbal due to anoxic brain injury since 2014, therefore, unable to obtain ROS. Objective - Vital Signs/Intake and Output Vital Signs (last 24 hours): Temp Pulse Resp BP Pulse Ox 98.2 F 70 20 117/72 100 05/27/18 07:00 05/27/18 07:00 05/27/18 07:00 05/27/18 07:00 05/27/18 07:00 Intake and Output: 05/27/18 05/27/18 06:59 18:59 Intake Total 900 Output Total 800 Balance 100 - Medications Medications: Current Medications Acetylcysteine (Acetylcysteine 20%) 4 ml INH RQ6 [facility] Last Admin: 05/27/18 07:15 Dose: 4 ml Albuterol/Ipratropium (Duoneb 3 Mg/0.5 Mg (3 Ml) Ud) 3 ml INH RQ6 [facility] Last Admin: 05/27/18 07:15 Dose: 3 ml Aspirin (Aspirin Chewable) 81 mg PEG DAILY [facility] Last Admin: 05/27/18 10:07 Dose: 81 mg Carvedilol (Coreg) 3.125 mg PEG BID [facility] Last Admin: 05/27/18 10:08 Dose: 3.125 mg Enoxaparin Sodium (Lovenox) 40 mg SC DAILY [facility] Last Admin: 05/27/18 10:08 Dose: 40 mg Famotidine (Pepcid) 20 mg PEG DAILY [facility] Last Admin: 05/27/18 10:07 Dose: 20 mg Finasteride (Proscar) 5 mg PEG DAILY [facility] Last Admin: 05/27/18 10:07 Dose: 5 mg Levetiracetam (Keppra) 500 mg PO BID [facility] Last Admin: 05/27/18 10:07 Dose: 500 mg Rosuvastatin Calcium (Crestor) 2.5 mg PEG HS [facility] Last Admin: 05/26/18 21:47 Dose: 2.5 mg Scopolamine (Transderm-Scop) 1 patch TD Q3D [facility] Last Admin: 05/25/18 10:04 Dose: 1 patch Tamsulosin HCl (Flomax) 0.4 mg PEG DAILY [facility] Last Admin: 05/27/18 10:08 Dose: 0.4 mg - Labs Labs: 04/26/18 07:46 04/26/18 07:46 PT 10.6 SECONDS (9.7-12.2) 11/24/15 14:10 INR 1.0 11/24/15 14:10 APTT 25 SECONDS (21-34) 11/24/15 14:10 - Constitutional Appears: No Acute Distress - Head Exam Head Exam: ATRAUMATIC, NORMOCEPHALIC - Eye Exam Eye Exam: EOMI, Normal appearance - ENT Exam ENT Exam: Mucous Membranes Moist - Respiratory Exam Respiratory Exam: Clear to Ausculation Bilateral, NORMAL BREATHING PATTERN Additional comments: trach in place. low mucus secretions on suction. - Cardiovascular Exam Cardiovascular Exam: REGULAR RHYTHM, +S1, +S2. absent: Murmur - GI/Abdominal Exam GI & Abdominal Exam: Soft, Normal Bowel Sounds. absent: Tenderness Additional comments: Gtube in place: clean, dry, intact. - Exam Additional comments: urine light yellow, clear - Extremities Exam Extremities Exam: Normal Capillary Refill Additional comments: bilateral offloading boots and SCDs - Neurological Exam Neurological Exam: absent: Alert, Awake, Oriented x3 Additional comments: anoxic brain injury - Skin Skin Exam: Dry, Intact, Normal Color, Warm Assessment and Plan - Assessment and Plan (Free Text) Plan: (1) Anoxic encephalopathy Assessment & Plan: * s/p cardiac arrest in 05/2015 * no acute changes in mental status. * Pt has non spontaneous movements. * patient is currently on 45cc/hr on tube feedings * via PEG * Aspirin 81mg daily * Keppra 500mg bid Status: Chronic (2) Respiratory failure Assessment & Plan: Trach in place, continue daily monitoring for secretions. No change in management at this time. * Continue with aggressive suctioning multiple times a day per respiratory therapist if secretions are thickened * Scopolamine 1 patch TD Q3D [facility] * Duoneb 3ml INH RQ6H * Mucomyst 4ml INH RQ6H * Most recent chest xray: * 09/28/17: no active disease. No significant interval change compared to. Status: Chronic (3) Urinary tract infection Assessment & Plan: Recurrent ID consult: Dr. Armstrong --> help appreciated * Patient is afebrile, no apparent leukocytosis * Patient is off IV abx since 08/05/17 * patient has condom catheter and Bladder scan PRN to prevent urinary retention Status: Acute (4) Urinary retention Assessment & Plan: * Tamsulosin 0.4mg daily * Finasteride 5 mg daily * Bladder scan up to 3x a week to monitor residual urine * patient has had history of recurrent UTIs Status: Acute (5) Hypokalemia Assessment & Plan: Resolved as per recent lab, 04/26/18 Will continue to monitor with subsequent lab Status: Resolved (6) Sacral ulcer Assessment & Plan: Healed * Cont with offloading/cushioning/turning * Continue frequent turning, protective ointment and skin checks. Status: Resolved (7) History of coronary artery disease Assessment & Plan: * s/p cardiac stents on 06/13/15 * Cont ASA 81mg via PEG daily * Cont Coreg 3.125mg PEG BID * Rosuvastatin 2.5mg PO HS Status: Acute (8) Seizures Assessment & Plan: * Continue Keppra 500mg PEG BID for seizure prophylaxis * Monitor for activity Status: Acute (9) Lower extremity edema Assessment & Plan: * Improved * SCDs in place * Pressure ulcer boots on b/l * Continue to monitor Status: Acute (10) PEG tube malfunction Assessment & Plan: * 01/06/18 * GI consulted, recs appreciated * Upper endoscopy showed LA grade B, esophagitis, small hiatal hernia, patchy erythematous mucosa in the stomach, dislodged PEG tube * PEG replaced * 03/12/18 * GI - Dr. Ramirez was previously consulted * Baker is working well in PEG tube place * 03/31/18 * IR reconsulted: Dr. Schroeder - Spoke with Dr. Schroeder who stated he will replace a G tube on 04/01/18 or 04/02/18 - Replaced the current baker with a new baker until the G tube is placed - s/p replacement of gastrostomy tube 04/02/18 - Lovenox and Aspirin will resume on 04/03/18 Status: Acute (11) Prophylactic measure Assessment & Plan: * Pepcid 20 mg PEG daily * Lovenox 40mg SC daily * SCDs and offloading boots * continue to turn and reposition q2hrs * Continue to monitor medication administrations and clinical presentation weekly labs. * vasoline ointment applied to feet prn to prevent hyperkeratosis * Please hold feeding from 10pm-6am, placed into nursing communication Disposition: Plan to place patient in LTAC in the works, per case management. Myrna Vega PGY-1. Case discussed with Dr. Moore. <Jeison Moore - Last Filed: 06/01/18 07:21> Objective - Vital Signs/Intake and Output Vital Signs (last 24 hours): Temp Pulse Resp BP Pulse Ox 99.6 F 90 20 113/76 99 05/31/18 23:58 05/31/18 23:58 05/31/18 23:58 05/31/18 23:58 05/31/18 23:58 Intake and Output: 06/01/18 06/01/18 06:59 18:59 Intake Total 1550 Output Total 1100 Balance 450 - Medications Medications: Current Medications Acetylcysteine (Acetylcysteine 20%) 4 ml INH RQ6 [facility] Last Admin: 06/01/18 07:13 Dose: Not Given Albuterol/Ipratropium (Duoneb 3 Mg/0.5 Mg (3 Ml) Ud) 3 ml INH RQ6 [facility] Last Admin: 06/01/18 07:12 Dose: 3 ml Aspirin (Aspirin Chewable) 81 mg PEG DAILY [facility] Last Admin: 05/31/18 10:17 Dose: 81 mg Carvedilol (Coreg) 3.125 mg PEG BID [facility] Last Admin: 05/31/18 17:19 Dose: Not Given Enoxaparin Sodium (Lovenox) 40 mg SC DAILY [facility] Last Admin: 05/31/18 10:18 Dose: 40 mg Famotidine (Pepcid) 20 mg PEG DAILY [facility] Last Admin: 05/31/18 10:17 Dose: 20 mg Finasteride (Proscar) 5 mg PEG DAILY [facility] Last Admin: 05/31/18 10:19 Dose: 5 mg Levetiracetam (Keppra) 500 mg PO BID [facility] Last Admin: 05/31/18 17:20 Dose: 500 mg Rosuvastatin Calcium (Crestor) 2.5 mg PEG HS [facility] Last Admin: 05/31/18 21:46 Dose: 2.5 mg Scopolamine (Transderm-Scop) 1 patch TD Q3D [facility] Last Admin: 05/31/18 10:17 Dose: 1 patch Tamsulosin HCl (Flomax) 0.4 mg PEG DAILY [facility] Last Admin: 05/31/18 10:17 Dose: 0.4 mg - Labs Labs: 05/31/18 07:37 05/31/18 07:37 PT 10.6 SECONDS (9.7-12.2) 11/24/15 14:10 INR 1.0 11/24/15 14:10 APTT 25 SECONDS (21-34) 11/24/15 14:10 Attending/Attestation - Attestation I have personally seen and examined this patient.: No I have fully participated in the care of the patient.: Yes I have reviewed all pertinent clinical information, including history, physical exam and plan: Yes
[2018-05-27] MEDS: Rosuvastatin Calcium 2.5 mg Tab PEG SCH (21:29)
[2018-05-28] MEDS: Albuterol-Ipratrop 3 mg / 0.5 (3 ml) UD INH SCH ×4 (01:12→20:39)
[2018-05-28] MEDS: Acetylcysteine 20% Inhal Soln (4ml) INH SCH ×4 (01:12→20:39)
[2018-05-28] MEDS: levETIRAcetam 100 mg/ml (5ml) Oral Syringe PO SCH ×2 (10:30→17:47)
[2018-05-28] MEDS: Enoxaparin 40 mg Syringe SC SCH (10:30)
[2018-05-28] MEDS: Rosuvastatin Calcium 2.5 mg Tab PEG SCH (21:57)
[2018-05-29] MEDS: Acetylcysteine 20% Inhal Soln (4ml) INH SCH ×4 (01:36→19:54)
[2018-05-29] MEDS: Albuterol-Ipratrop 3 mg / 0.5 (3 ml) UD INH SCH ×4 (01:37→19:56)
[2018-05-29] MEDS: Enoxaparin 40 mg Syringe SC SCH (10:11)
[2018-05-29] MEDS: levETIRAcetam 100 mg/ml (5ml) Oral Syringe PO SCH ×2 (10:11→17:31)
[2018-05-29] MEDS: Rosuvastatin Calcium 2.5 mg Tab PEG SCH (22:50)
[2018-05-30] MEDS: Albuterol-Ipratrop 3 mg / 0.5 (3 ml) UD INH SCH ×4 (01:38→19:49)
[2018-05-30] MEDS: Acetylcysteine 20% Inhal Soln (4ml) INH SCH ×4 (01:38→19:49)
[2018-05-30] MEDS: levETIRAcetam 100 mg/ml (5ml) Oral Syringe PO SCH ×2 (10:10→17:59)
[2018-05-30] MEDS: Enoxaparin 40 mg Syringe SC SCH (10:10)
[2018-05-30] MEDS: Rosuvastatin Calcium 2.5 mg Tab PEG SCH (21:51)
[2018-05-31] MEDS: Acetylcysteine 20% Inhal Soln (4ml) INH SCH ×4 (02:27→13:38)
[2018-05-31] MEDS: Albuterol-Ipratrop 3 mg / 0.5 (3 ml) UD INH SCH ×4 (02:27→20:53)
[2018-05-31 07:52] LABS: BASO # 0.1 K/uL (0.0-0.2); EOS # 0.4 K/uL (0.0-0.7); HEMOGLOBIN 11.9 g/dL (12.0-18.0); LYMPH # 2.1 K/uL (1.0-4.3); LYMPH % 21.4 % (20.0-40.0); MEAN CORPUSCULAR HEMOGLOBIN 29.2 pg (27.0-31.0); MEAN CORPUSCULAR HGB CONC 32.8 g/dL (33.0-37.0); MEAN PLATELET VOLUME 8.7 fL (7.2-11.7); MONO # 0.8 K/uL (0.0-0.8); MONO % 7.9 % (0.0-10.0); NEUT # 6.5 K/uL (1.8-7.0); NEUT % 65.7 % (50.0-75.0); RBC 4.07 Mil/uL (4.40-5.90); RED CELL DISTRIBUTION WIDTH 15.3 % (11.5-14.5)
[2018-05-31 08:17] LABS: ALB/GLOB RATIO 0.9 (1.0-2.1); ALBUMIN 3.9 g/dL (3.5-5.0); ALT/SGPT 37 U/L (21-72); AST/SGOT 24 U/L (17-59); BLOOD UREA NITROGEN 14 mg/dL (9-20); CALCIUM 8.8 mg/dl (8.6-10.4); GFR NON-AFRICAN AMERICAN > 60
[2018-05-31] MEDS: levETIRAcetam 100 mg/ml (5ml) Oral Syringe PO SCH ×2 (10:17→17:20)
[2018-05-31] MEDS: Enoxaparin 40 mg Syringe SC SCH (10:18)
[2018-05-31] MEDS: Rosuvastatin Calcium 2.5 mg Tab PEG SCH (21:46)
[2018-06-01] MEDS: Acetylcysteine 20% Inhal Soln (4ml) INH SCH ×4 (02:44→19:20)
[2018-06-01] MEDS: Albuterol-Ipratrop 3 mg / 0.5 (3 ml) UD INH SCH ×4 (02:44→19:20)
--- NOTE | 2018-06-01 07:01 | CP.PCM.PN ---
Subjective - Date & Time of Evaluation Date of Evaluation: 06/01/18 Time of Evaluation: 06:58 - Subjective Subjective: PGY-1 Medicine Progress Note for hospitalist Dr. Hallman. Patient was seen and examined today at bedside in no acute distress. Nurse reports no overnight events. Patient has had anoxic brain injury since 2014 and is nonverbal. Therefore unable to obtain ROS. Objective - Vital Signs/Intake and Output Vital Signs (last 24 hours): Temp Pulse Resp BP Pulse Ox 99.6 F 90 20 113/76 99 05/31/18 23:58 05/31/18 23:58 05/31/18 23:58 05/31/18 23:58 05/31/18 23:58 Intake and Output: 05/31/18 06/01/18 18:59 06:59 Intake Total 1250 1550 Output Total 750 1100 Balance 500 450 - Medications Medications: Current Medications Acetylcysteine (Acetylcysteine 20%) 4 ml INH RQ6 [facility] [place] Last Admin: 06/01/18 02:44 Dose: Not Given Albuterol/Ipratropium (Duoneb 3 Mg/0.5 Mg (3 Ml) Ud) 3 ml INH RQ6 [facility] [place] Last Admin: 06/01/18 02:44 Dose: 3 ml Aspirin (Aspirin Chewable) 81 mg PEG DAILY [facility] [place] Last Admin: 05/31/18 10:17 Dose: 81 mg Carvedilol (Coreg) 3.125 mg PEG BID [facility] [place] Last Admin: 05/31/18 17:19 Dose: Not Given Enoxaparin Sodium (Lovenox) 40 mg SC DAILY [facility] Last Admin: 05/31/18 10:18 Dose: 40 mg Famotidine (Pepcid) 20 mg PEG DAILY [facility] [place] Last Admin: 05/31/18 10:17 Dose: 20 mg Finasteride (Proscar) 5 mg PEG DAILY [facility] [place] Last Admin: 05/31/18 10:19 Dose: 5 mg Levetiracetam (Keppra) 500 mg PO BID [facility] [place] Last Admin: 05/31/18 17:20 Dose: 500 mg Rosuvastatin Calcium (Crestor) 2.5 mg PEG HS [facility] [place] Last Admin: 05/31/18 21:46 Dose: 2.5 mg Scopolamine (Transderm-Scop) 1 patch TD Q3D [facility] [place] Last Admin: 05/31/18 10:17 Dose: 1 patch Tamsulosin HCl (Flomax) 0.4 mg PEG DAILY [facility] Last Admin: 05/31/18 10:17 Dose: 0.4 mg - Labs Labs: 05/31/18 07:37 05/31/18 07:37 PT 10.6 SECONDS (9.7-12.2) 11/24/15 14:10 INR 1.0 11/24/15 14:10 APTT 25 SECONDS (21-34) 11/24/15 14:10 - Constitutional Appears: Non-toxic, No Acute Distress - Head Exam Head Exam: ATRAUMATIC, NORMOCEPHALIC - Eye Exam Eye Exam: EOMI, Normal appearance - ENT Exam ENT Exam: Mucous Membranes Moist, Normal Exam Additional comments: trach in place - Respiratory Exam Respiratory Exam: Clear to Ausculation Bilateral, NORMAL BREATHING PATTERN. absent: Rales, Rhonchi, Wheezes - Cardiovascular Exam Cardiovascular Exam: REGULAR RHYTHM, +S1, +S2. absent: Murmur - GI/Abdominal Exam GI & Abdominal Exam: Soft, Normal Bowel Sounds. absent: Tenderness Additional comments: gtube in place. c/d/i - Exam Additional comments: baker in place. good output - Extremities Exam Extremities Exam: Full ROM, Normal Capillary Refill, Normal Inspection. absent : Joint Swelling, Pedal Edema Additional comments: SCDs and bilateral pressure ulcer boots pedal pulses present - Neurological Exam Neurological Exam: Awake Additional comments: anoxic brain injury in 2014. reflexes present (bicep, patellar) bilaterally - Psychiatric Exam Psychiatric exam: Normal Affect, Normal Mood - Skin Skin Exam: Dry, Intact, Normal Color, Warm Assessment and Plan - Assessment and Plan (Free Text) Plan: (1) Anoxic encephalopathy Assessment & Plan: * s/p cardiac arrest in 05/2015 * no acute changes in mental status. * Pt has non spontaneous movements. * patient is currently on 45cc/hr on tube feedings * via PEG * Aspirin 81mg daily * Keppra 500mg bid Status: Chronic (2) Respiratory failure Assessment & Plan: Trach in place, continue daily monitoring for secretions. No change in management at this time. * Continue with aggressive suctioning multiple times a day per respiratory therapist if secretions are thickened * Scopolamine 1 patch TD Q3D [facility] * Duoneb 3ml INH RQ6H * Mucomyst 4ml INH RQ6H * Most recent chest xray: * 09/28/17: no active disease. No significant interval change compared to. Status: Chronic (3) Urinary tract infection Assessment & Plan: Recurrent ID consult: Dr. Armstrong --> help appreciated * Patient is afebrile, no apparent leukocytosis * Patient is off IV abx since 08/05/17 * patient has condom catheter and Bladder scan PRN to prevent urinary retention Status: Acute (4) Urinary retention Assessment & Plan: * Tamsulosin 0.4mg daily * Finasteride 5 mg daily * Bladder scan up to 3x a week to monitor residual urine * patient has had history of recurrent UTIs Status: Acute (5) Hypokalemia Assessment & Plan: Resolved as per recent lab, 04/26/18 Will continue to monitor with subsequent lab and replete as necessary Status: Resolved (6) Sacral ulcer Assessment & Plan: Healed * Cont with offloading/cushioning/turning * Continue frequent turning, protective ointment and skin checks. Status: Resolved (7) History of coronary artery disease Assessment & Plan: * s/p cardiac stents on 06/13/15 * Cont ASA 81mg via PEG daily * Cont Coreg 3.125mg PEG BID * Rosuvastatin 2.5mg PO HS Status: Acute (8) Seizures Assessment & Plan: * Continue Keppra 500mg PEG BID for seizure prophylaxis * Monitor for activity Status: Acute (9) Lower extremity edema Assessment & Plan: * Improved * SCDs in place * Pressure ulcer boots on b/l * Continue to monitor Status: Acute (10) PEG tube malfunction Assessment & Plan: * 01/06/18 * GI consulted, recs appreciated * Upper endoscopy showed LA grade B, esophagitis, small hiatal hernia, patchy erythematous mucosa in the stomach, dislodged PEG tube * PEG replaced * 03/12/18 * GI - Dr. Ramirez was previously consulted * Baker is working well in PEG tube place * 03/31/18 * IR reconsulted: Dr. Schroeder - Spoke with Dr. Schroeder who stated he will replace a G tube on 04/01/18 or 04/02/18 - Replaced the current baker with a new baker until the G tube is placed - s/p replacement of gastrostomy tube 04/02/18 - Lovenox and Aspirin will resume on 04/03/18 Status: Acute (11) Prophylactic measure Assessment & Plan: * Pepcid 20 mg PEG daily * Lovenox 40mg SC daily * SCDs and offloading boots * continue to turn and reposition q2hrs * Continue to monitor medication administrations and clinical presentation weekly labs. * vasoline ointment applied to feet prn to prevent hyperkeratosis * Please hold feeding from 10pm-6am, placed into nursing communication Disposition: Plan to place patient in LTAC in the works, per case management. Myrna Vega PGY-1. Case discussed with Dr. Hallman.
[2018-06-01] MEDS: levETIRAcetam 100 mg/ml (5ml) Oral Syringe PO SCH ×2 (10:10→17:28)
[2018-06-01] MEDS: Enoxaparin 40 mg Syringe SC SCH (10:11)
[2018-06-01] MEDS: Rosuvastatin Calcium 2.5 mg Tab PEG SCH (21:39)
[2018-06-02] MEDS: Acetylcysteine 20% Inhal Soln (4ml) INH SCH ×3 (01:35→19:53)
[2018-06-02] MEDS: Albuterol-Ipratrop 3 mg / 0.5 (3 ml) UD INH SCH ×2 (01:36→19:56)
[2018-06-02] MEDS: levETIRAcetam 100 mg/ml (5ml) Oral Syringe PO SCH ×2 (10:20→17:16)
[2018-06-02] MEDS: Enoxaparin 40 mg Syringe SC SCH (10:20)
[2018-06-02] MEDS: Rosuvastatin Calcium 2.5 mg Tab PEG SCH (21:21)
[2018-06-03] MEDS: Acetylcysteine 20% Inhal Soln (4ml) INH SCH ×3 (03:03→19:09)
[2018-06-03] MEDS: Albuterol-Ipratrop 3 mg / 0.5 (3 ml) UD INH SCH ×3 (03:03→19:10)
--- NOTE | 2018-06-03 06:29 | CP.PCM.PN ---
<Myrna Vega Y - Last Filed: 06/03/18 14:14> Subjective - Date & Time of Evaluation Date of Evaluation: 06/03/18 Time of Evaluation: 06:58 - Subjective Subjective: PGY-1 Medicine Progress Note for hospitalist Dr. Hallman. Patient was seen and examined today at bedside in no acute distress. Nurse reports no overnight events. Patient has had anoxic brain injury since 2014 and is nonverbal. Therefore unable to obtain ROS. Objective - Vital Signs/Intake and Output Vital Signs (last 24 hours): Temp Pulse Resp BP Pulse Ox 98.6 F 73 20 103/69 98 06/02/18 23:37 06/02/18 23:37 06/02/18 23:37 06/02/18 23:37 06/02/18 23:37 Intake and Output: 06/02/18 06/03/18 18:59 06:59 Intake Total 800 1600 Output Total 500 1700 Balance 300 -100 - Medications Medications: Current Medications Acetylcysteine (Acetylcysteine 20%) 4 ml INH RQ6 [facility] Last Admin: 06/03/18 03:03 Dose: Not Given Albuterol/Ipratropium (Duoneb 3 Mg/0.5 Mg (3 Ml) Ud) 3 ml INH RQ6 [facility] Last Admin: 06/03/18 03:03 Dose: 3 ml Aspirin (Aspirin Chewable) 81 mg PEG DAILY [facility] Last Admin: 06/02/18 10:19 Dose: 81 mg Carvedilol (Coreg) 3.125 mg PEG BID [facility] Last Admin: 06/02/18 17:17 Dose: 3.125 mg Enoxaparin Sodium (Lovenox) 40 mg SC DAILY [facility] Last Admin: 06/02/18 10:20 Dose: 40 mg Famotidine (Pepcid) 20 mg PEG DAILY [facility] Last Admin: 06/02/18 10:19 Dose: 20 mg Finasteride (Proscar) 5 mg PEG DAILY [facility] Last Admin: 06/02/18 10:20 Dose: 5 mg Levetiracetam (Keppra) 500 mg PO BID [facility] Last Admin: 06/02/18 17:16 Dose: 500 mg Rosuvastatin Calcium (Crestor) 2.5 mg PEG HS [facility] Last Admin: 06/02/18 21:21 Dose: 2.5 mg Scopolamine (Transderm-Scop) 1 patch TD Q3D [facility] Last Admin: 05/31/18 10:17 Dose: 1 patch Tamsulosin HCl (Flomax) 0.4 mg PEG DAILY [facility] Last Admin: 06/02/18 10:19 Dose: 0.4 mg - Labs Labs: 05/31/18 07:37 05/31/18 07:37 PT 10.6 SECONDS (9.7-12.2) 11/24/15 14:10 INR 1.0 11/24/15 14:10 APTT 25 SECONDS (21-34) 11/24/15 14:10 - Constitutional Appears: Non-toxic, No Acute Distress - Head Exam Head Exam: ATRAUMATIC, NORMOCEPHALIC - Eye Exam Eye Exam: EOMI, Normal appearance, PERRL - ENT Exam ENT Exam: Mucous Membranes Moist, Normal Exam Additional comments: trach in place. suctioning well - Respiratory Exam Respiratory Exam: Clear to Ausculation Bilateral, NORMAL BREATHING PATTERN - Cardiovascular Exam Cardiovascular Exam: REGULAR RHYTHM, +S1, +S2. absent: Murmur - GI/Abdominal Exam GI & Abdominal Exam: Soft, Normal Bowel Sounds. absent: Tenderness Additional comments: gtube in place. c/d/i - Exam Additional comments: baker in place. draining well. - Extremities Exam Extremities Exam: Normal Capillary Refill, Normal Inspection. absent: Joint Swelling, Pedal Edema Additional comments: SCDs and bilateraly pressure ulcer boots pedal pulses present - Neurological Exam Neurological Exam: Awake Additional comments: anoxic brain injury in 2014. reflexes present (bicep, patellar) bilaterally - Psychiatric Exam Psychiatric exam: Normal Affect, Normal Mood - Skin Skin Exam: Dry, Intact, Normal Color, Warm Assessment and Plan - Assessment and Plan (Free Text) Plan: (1) Anoxic encephalopathy Assessment & Plan: * s/p cardiac arrest in 05/2015 * no acute changes in mental status. * Pt has non spontaneous movements. * patient is currently on 45cc/hr on tube feedings * via PEG * Aspirin 81mg daily * Keppra 500mg bid Status: Chronic (2) Respiratory failure Assessment & Plan: Trach in place, continue daily monitoring for secretions. No change in management at this time. * Continue with aggressive suctioning multiple times a day per respiratory therapist if secretions are thickened * Scopolamine 1 patch TD Q3D [facility] * Duoneb 3ml INH RQ6H * Mucomyst 4ml INH RQ6H * Most recent chest xray: * 09/28/17: no active disease. No significant interval change compared to. Status: Chronic (3) Urinary tract infection Assessment & Plan: Recurrent ID consult: Dr. Armstrong --> help appreciated * Patient is afebrile, no apparent leukocytosis * Patient is off IV abx since 08/05/17 * patient has condom catheter and Bladder scan PRN to prevent urinary retention Status: Acute (4) Urinary retention Assessment & Plan: * Tamsulosin 0.4mg daily * Finasteride 5 mg daily * Bladder scan up to 3x a week to monitor residual urine * patient has had history of recurrent UTIs Status: Acute (5) Hypokalemia Assessment & Plan: Resolved as per recent lab, 04/26/18 Will continue to monitor with subsequent lab and replete as necessary Status: Resolved (6) Sacral ulcer Assessment & Plan: Healed * Cont with offloading/cushioning/turning * Continue frequent turning, protective ointment and skin checks. Status: Resolved (7) History of coronary artery disease Assessment & Plan: * s/p cardiac stents on 06/13/15 * Cont ASA 81mg via PEG daily * Cont Coreg 3.125mg PEG BID * Rosuvastatin 2.5mg PO HS Status: Acute (8) Seizures Assessment & Plan: * Continue Keppra 500mg PEG BID for seizure prophylaxis * Monitor for activity Status: Acute (9) Lower extremity edema Assessment & Plan: * Improved * SCDs in place * Pressure ulcer boots on b/l * Continue to monitor Status: Acute (10) PEG tube malfunction Assessment & Plan: * 01/06/18 * GI consulted, recs appreciated * Upper endoscopy showed LA grade B, esophagitis, small hiatal hernia, patchy erythematous mucosa in the stomach, dislodged PEG tube * PEG replaced * 03/12/18 * GI - Dr. Ramirez was previously consulted * Baker is working well in PEG tube place * 03/31/18 * IR reconsulted: Dr. Schroeder - Spoke with Dr. Schroeder who stated he will replace a G tube on 04/01/18 or 04/02/18 - Replaced the current baker with a new baker until the G tube is placed - s/p replacement of gastrostomy tube 04/02/18 - Lovenox and Aspirin will resume on 04/03/18 Status: Acute (11) Prophylactic measure Assessment & Plan: * Pepcid 20 mg PEG daily * Lovenox 40mg SC daily * SCDs and offloading boots * continue to turn and reposition q2hrs * Continue to monitor medication administrations and clinical presentation weekly labs. * vasoline ointment applied to feet prn to prevent hyperkeratosis * Please hold feeding from 10pm-6am, placed into nursing communication Disposition: Plan to place patient in LTAC in the works, per case management. Myrna Vega PGY-1. Case discussed with Dr. Hallman. <Colleen Braswell V - Last Filed: 06/04/18 21:14> Objective - Vital Signs/Intake and Output Vital Signs (last 24 hours): Temp Pulse Resp BP Pulse Ox 98.0 F 72 20 115/77 97 06/04/18 15:05 06/04/18 15:05 06/04/18 15:05 06/04/18 15:05 06/04/18 15:05 Intake and Output: 06/04/18 06/05/18 18:59 06:59 Intake Total 800 Output Total 400 Balance 400 - Medications Medications: Current Medications Acetylcysteine (Acetylcysteine 20%) 4 ml INH RQ6 [facility] Last Admin: 06/04/18 19:26 Dose: Not Given Albuterol/Ipratropium (Duoneb 3 Mg/0.5 Mg (3 Ml) Ud) 3 ml INH RQ6 [facility] Last Admin: 06/04/18 19:26 Dose: 3 ml Aspirin (Aspirin Chewable) 81 mg PEG DAILY [facility] Last Admin: 06/04/18 10:35 Dose: 81 mg Carvedilol (Coreg) 3.125 mg PEG BID [facility] Last Admin: 06/04/18 17:12 Dose: 3.125 mg Enoxaparin Sodium (Lovenox) 40 mg SC DAILY [facility] Last Admin: 06/04/18 10:35 Dose: 40 mg Famotidine (Pepcid) 20 mg PEG DAILY [facility] Last Admin: 06/04/18 10:35 Dose: 20 mg Finasteride (Proscar) 5 mg PEG DAILY [facility] Last Admin: 06/04/18 10:35 Dose: 5 mg Levetiracetam (Keppra) 500 mg PO BID [facility] Last Admin: 06/04/18 17:12 Dose: 500 mg Rosuvastatin Calcium (Crestor) 2.5 mg PEG HS [facility] Last Admin: 06/03/18 21:26 Dose: 2.5 mg Scopolamine (Transderm-Scop) 1 patch TD Q3D [facility] Last Admin: 06/03/18 09:48 Dose: 1 patch Tamsulosin HCl (Flomax) 0.4 mg PEG DAILY [facility] Last Admin: 06/04/18 10:35 Dose: 0.4 mg - Labs Labs: 05/31/18 07:37 05/31/18 07:37 PT 10.6 SECONDS (9.7-12.2) 11/24/15 14:10 INR 1.0 11/24/15 14:10 APTT 25 SECONDS (21-34) 11/24/15 14:10 Attending/Attestation - Attestation I have personally seen and examined this patient.: Yes I have fully participated in the care of the patient.: Yes I have reviewed all pertinent clinical information, including history, physical exam and plan: Yes Notes (Text): Note Error in Resident Note and Addendums in my note: Hospitalist Covering Today (Dr. Braswell) came and saw the patient today. Patient with known hx of anoxic encephalopathy, acute respiratory failure, on trach collar with multiple comorbidities, with presently prolonged hospitalization awaiting LTAC when available. patient seen, examined, and case discussed with day-time resident. Unable to review ROS secondary to patient's clinical condition. I've spoke with his nurse at bedside, no acute events noted, except for secretions noted, wherein both nursing and respiratory staff are aware. We Have also checked patient's backside, no sacral wound note. Assessment/Plan (1) Anoxic encephalopathy Assessment & Plan: * s/p cardiac arrest in 05/2015 * no acute changes in mental status. * Pt has non spontaneous movements. * patient is currently on Jevity 1.5 50cc/hr on tube feedings via gastrostomy tube * via PEG * Aspirin 81mg daily * Plavix 75 mg daily * Keppra 500mg bid Status: Chronic (2) Acute Respiratory failure Assessment & Plan: * Trach in place, continue daily monitoring for secretions. No change in management at this time. * Will increase frequency of Duonebs and acetylcysteine to Q4 in light of thickness in secretions 06/04/18 * Continue with aggressive suctioning multiple times a day per respiratory therapist if secretions are thickened * Scopolamine 1 patch TD Q3D [facility] * Most recent chest xray: * 09/28/17: no active disease. No significant interval change compared to. Status: Chronic (3) History of Recurrent UTIs Assessment & Plan: * ID consult: Dr. Armstrong --> help appreciated * Patient is afebrile, no apparent leukocytosis * Patient is off IV abx since 08/05/17 * patient has condom catheter and Bladder scan PRN to prevent urinary retention * Noted no urine retention per nursing staff Status: Acute (4) History of Urinary retention Assessment & Plan: * Bethanecol 50mg PEG TID * Flomax 0.4mg peg daily * Proscar 5mg peg daily * Bladder scan up to 3x a week to monitor residual urine * patient has had history of recurrent UTIs Status: Chronic (5) Hypokalemia Assessment & Plan: * Monitor and replete Status: Acute (6) History of Sacral ulcer Assessment & Plan: * Healed * Cont with offloading/cushioning/turning * Continue frequent turning, protective ointment and skin checks. * Turn q2H Status: Resolved (7) History of coronary artery disease Assessment & Plan: * s/p cardiac stents on 06/13/15 * Cont ASA 81mg via PEG daily * Cont Coreg 3.125mg PEG BID * Cont Plavix 75 mg PEG daily * Increase Crestor 5mg PoqHS Status: Acute (8) History of Seizures Assessment & Plan: * Continue Keppra 500mg PEG BID for seizure prophylaxis * Monitor for activity Status: Chronic (9) Lower extremity edema Assessment & Plan: * Improved * SCDs in place * Pressure ulcer boots on b/l * Continue to monitor Status: Chronic (10) Peg tube malfunction-->resolved Assessment & Plan: * 01/06/18 * GI consulted, recs appreciated * Upper endoscopy showed LA grade B, esophagitis, small hiatal hernia, patchy erythematous mucosa in the stomach, dislodged PEG tube * PEG replaced * 03/12/18 * GI - Dr. Ramirez was previously consulted * Baker is working well in PEG tube place * 03/31/18 * IR reconsulted: Dr. Schroeder - Spoke with Dr. Schroeder who stated he will replace a G tube on 04/01/18 or 04/02/18 - Replaced the current baker with a new baker until the G tube is placed - s/p replacement of gastrostomy tube 04/02/18 - Lovenox and Aspirin will resume on 04/03/18 (11) Prophylactic measure Assessment & Plan: * Pepcid 20 mg PEG daily * Lovenox 40mg SC daily * SCDs and offloading boots * continue to turn and reposition q2hrs * Continue to monitor medication administrations and clinical presentation weekly labs. * vasoline ointment applied to feet prn to prevent hyperkeratos * Please hold feeding from 10pm-6am, placed into nursing communication * Feeding: jevity 1.5 50cc/hr * Vitamin A & D for lips Disposition: Latest case management note from 02/12/18: consent order from [facility] pending for transfer to [facility]. Social work has sent updated clinicals as of February per notes; Awaiting LTAC placement.
[2018-06-03] MEDS: levETIRAcetam 100 mg/ml (5ml) Oral Syringe PO SCH ×2 (09:47→17:36)
[2018-06-03] MEDS: Enoxaparin 40 mg Syringe SC SCH (09:47)
[2018-06-03] MEDS: Rosuvastatin Calcium 2.5 mg Tab PEG SCH (21:26)
[2018-06-04] MEDS: Acetylcysteine 20% Inhal Soln (4ml) INH SCH ×4 (02:08→19:26)
[2018-06-04] MEDS: Albuterol-Ipratrop 3 mg / 0.5 (3 ml) UD INH SCH ×4 (02:08→19:26)
[2018-06-04] MEDS: Enoxaparin 40 mg Syringe SC SCH (10:35)
[2018-06-04] MEDS: levETIRAcetam 100 mg/ml (5ml) Oral Syringe PO SCH ×2 (10:35→17:12)
--- NOTE | 2018-06-04 21:16 | CP.PCM.PN ---
Subjective - Date & Time of Evaluation Date of Evaluation: 06/04/18 Time of Evaluation: 13:20 - Subjective Subjective: Hospitalist Note: Patient seen and examined with resident during rounds today. Unable to review ROS secondary to clinical condition. Discussed with RN, no acute events noted overnight. Patient noted to have thicken secretions wherein nursing and respiratory are suctioning. Objective - Vital Signs/Intake and Output Vital Signs (last 24 hours): Temp Pulse Resp BP Pulse Ox 98.0 F 72 20 115/77 97 06/04/18 15:05 06/04/18 15:05 06/04/18 15:05 06/04/18 15:05 06/04/18 15:05 Intake and Output: 06/04/18 06/05/18 18:59 06:59 Intake Total 800 Output Total 400 Balance 400 - Medications Medications: Current Medications Acetylcysteine (Acetylcysteine 20%) 4 ml INH RQ6 [facility] Last Admin: 06/04/18 19:26 Dose: Not Given Albuterol/Ipratropium (Duoneb 3 Mg/0.5 Mg (3 Ml) Ud) 3 ml INH RQ6 [facility] Last Admin: 06/04/18 19:26 Dose: 3 ml Aspirin (Aspirin Chewable) 81 mg PEG DAILY [facility] Last Admin: 06/04/18 10:35 Dose: 81 mg Bethanechol Chloride (Urecholine) 50 mg PO TID [facility] Carvedilol (Coreg) 3.125 mg PEG BID [facility] Last Admin: 06/04/18 17:12 Dose: 3.125 mg Enoxaparin Sodium (Lovenox) 40 mg SC DAILY [facility] Last Admin: 06/04/18 10:35 Dose: 40 mg Famotidine (Pepcid) 20 mg PEG DAILY [facility] Last Admin: 06/04/18 10:35 Dose: 20 mg Finasteride (Proscar) 5 mg PEG DAILY [facility] Last Admin: 06/04/18 10:35 Dose: 5 mg Levetiracetam (Keppra) 500 mg PO BID [facility] Last Admin: 06/04/18 17:12 Dose: 500 mg Rosuvastatin Calcium (Crestor) 2.5 mg PEG HS [facility] Last Admin: 06/03/18 21:26 Dose: 2.5 mg Scopolamine (Transderm-Scop) 1 patch TD Q3D [facility] Last Admin: 06/03/18 09:48 Dose: 1 patch Tamsulosin HCl (Flomax) 0.4 mg PEG DAILY [facility] Last Admin: 06/04/18 10:35 Dose: 0.4 mg - Labs Labs: 05/31/18 07:37 05/31/18 07:37 PT 10.6 SECONDS (9.7-12.2) 11/24/15 14:10 INR 1.0 11/24/15 14:10 APTT 25 SECONDS (21-34) 11/24/15 14:10 - Constitutional Appears: Non-toxic, No Acute Distress - Head Exam Head Exam: NORMAL INSPECTION Additional comments: trach collar in place no secretions noted - Eye Exam Eye Exam: EOMI - ENT Exam ENT Exam: Mucous Membranes Moist - Respiratory Exam Respiratory Exam: Clear to Ausculation Bilateral, NORMAL BREATHING PATTERN. absent: Rales, Rhonchi - Cardiovascular Exam Cardiovascular Exam: REGULAR RHYTHM, +S1, +S2 - GI/Abdominal Exam GI & Abdominal Exam: Soft, Normal Bowel Sounds. absent: Distended, Firm, Guarding, Rigid, Tenderness, Rebound Additional comments: g-tube in place; no discharge, no erythema, no pus - Extremities Exam Additional comments: prevalon boots b/l trace edema scds b/l - Back Exam Additional comments: no sacral wound - Neurological Exam Neurological Exam: Awake - Skin Skin Exam: Dry, Intact, Normal Color, Warm Attending/Attestation - Attestation I have personally seen and examined this patient.: Yes I have fully participated in the care of the patient.: Yes I have reviewed all pertinent clinical information, including history, physical exam and plan: Yes Notes (Text): please note had added my note in error to wrong progress note on 06/03/18. Hospitalist Covering Today (Dr. Braswell) came and saw the patient today. Patient with known hx of anoxic encephalopathy, acute respiratory failure, on trach collar with multiple comorbidities, with presently prolonged hospitalization awaiting LTAC when available. patient seen, examined, and case discussed with day-time resident. Unable to review ROS secondary to patient's clinical condition. I've spoke with his nurse at bedside, no acute events noted, except for secretions noted, wherein both nursing and respiratory staff are aware. We Have also checked patient's backside, no sacral wound note. Assessment/Plan (1) Anoxic encephalopathy Assessment & Plan: * s/p cardiac arrest in 05/2015 * no acute changes in mental status. * Pt has non spontaneous movements. * patient is currently on Jevity 1.5 50cc/hr on tube feedings via gastrostomy tube * via PEG * Aspirin 81mg daily * Plavix 75 mg daily * Keppra 500mg bid Status: Chronic (2) Acute Respiratory failure Assessment & Plan: * Trach in place, continue daily monitoring for secretions. No change in management at this time. * Will increase frequency of Duonebs and acetylcysteine to Q4 in light of thickness in secretions 06/04/18 * Continue with aggressive suctioning multiple times a day per respiratory therapist if secretions are thickened * Scopolamine 1 patch TD Q3D [facility] * Most recent chest xray: * 09/28/17: no active disease. No significant interval change compared to. Status: Chronic (3) History of Recurrent UTIs Assessment & Plan: * ID consult: Dr. Armstrong --> help appreciated * Patient is afebrile, no apparent leukocytosis * Patient is off IV abx since 08/05/17 * patient has condom catheter and Bladder scan PRN to prevent urinary retention * Noted no urine retention per nursing staff Status: Acute (4) History of Urinary retention Assessment & Plan: * Bethanecol 50mg PEG TID * Flomax 0.4mg peg daily * Proscar 5mg peg daily * Bladder scan up to 3x a week to monitor residual urine * patient has had history of recurrent UTIs Status: Chronic (5) Hypokalemia Assessment & Plan: * Monitor and replete Status: Acute (6) History of Sacral ulcer Assessment & Plan: * Healed * Cont with offloading/cushioning/turning * Continue frequent turning, protective ointment and skin checks. * Turn q2H Status: Resolved (7) History of coronary artery disease Assessment & Plan: * s/p cardiac stents on 06/13/15 * Cont ASA 81mg via PEG daily * Cont Coreg 3.125mg PEG BID * Cont Plavix 75 mg PEG daily * Increase Crestor 5mg PoqHS Status: Acute (8) History of Seizures Assessment & Plan: * Continue Keppra 500mg PEG BID for seizure prophylaxis * Monitor for activity Status: Chronic (9) Lower extremity edema Assessment & Plan: * Improved * SCDs in place * Pressure ulcer boots on b/l * Continue to monitor Status: Chronic (10) Peg tube malfunction-->resolved Assessment & Plan: * 01/06/18 * GI consulted, recs appreciated * Upper endoscopy showed LA grade B, esophagitis, small hiatal hernia, patchy erythematous mucosa in the stomach, dislodged PEG tube * PEG replaced * 03/12/18 * GI - Dr. Ramirez was previously consulted * Baker is working well in PEG tube place * 03/31/18 * IR reconsulted: Dr. Schroeder - Spoke with Dr. Schroeder who stated he will replace a G tube on 04/01/18 or 04/02/18 - Replaced the current baker with a new baker until the G tube is placed - s/p replacement of gastrostomy tube 04/02/18 - Lovenox and Aspirin will resume on 04/03/18 (11) Prophylactic measure Assessment & Plan: * Pepcid 20 mg PEG daily * Lovenox 40mg SC daily * SCDs and offloading boots * continue to turn and reposition q2hrs * Continue to monitor medication administrations and clinical presentation weekly labs. * vasoline ointment applied to feet prn to prevent hyperkeratos * Please hold feeding from 10pm-6am, placed into nursing communication * Feeding: jevity 1.5 50cc/hr * Vitamin A & D for lips Disposition: Latest case management note from 02/12/18: consent order from [facility] pending for transfer to [facility]. Social work has sent updated clinicals as of February per notes; Awaiting LTAC placement.
[2018-06-04] MEDS: Rosuvastatin Calcium 2.5 mg Tab PEG SCH (21:20)
[2018-06-05] MEDS: Acetylcysteine 20% Inhal Soln (4ml) INH SCH ×6 (01:54→23:53)
[2018-06-05] MEDS: Albuterol-Ipratrop 3 mg / 0.5 (3 ml) UD INH SCH ×6 (01:54→23:53)
[2018-06-05] MEDS: Enoxaparin 40 mg Syringe SC SCH (09:50)
[2018-06-05] MEDS: levETIRAcetam 100 mg/ml (5ml) Oral Syringe PO SCH ×2 (09:50→17:52)
[2018-06-05] MEDS: Rosuvastatin Calcium 2.5 mg Tab PEG SCH (21:23)
[2018-06-06] MEDS: Acetylcysteine 20% Inhal Soln (4ml) INH SCH ×6 (03:28→23:57)
[2018-06-06] MEDS: Albuterol-Ipratrop 3 mg / 0.5 (3 ml) UD INH SCH ×6 (03:28→23:57)
[2018-06-06] MEDS: levETIRAcetam 100 mg/ml (5ml) Oral Syringe PO SCH ×2 (09:29→17:53)
[2018-06-06] MEDS: Enoxaparin 40 mg Syringe SC SCH (09:29)
[2018-06-06] MEDS: Rosuvastatin Calcium 2.5 mg Tab PEG SCH (21:41)
[2018-06-07] MEDS: Albuterol-Ipratrop 3 mg / 0.5 (3 ml) UD INH SCH ×6 (03:30→23:48)
[2018-06-07] MEDS: Acetylcysteine 20% Inhal Soln (4ml) INH SCH ×6 (03:30→23:48)
[2018-06-07 08:25] LABS: BASO % 0.4 % (0.0-2.0); EOS # 0.3 K/uL (0.0-0.7); HEMOGLOBIN 12.1 g/dL (12.0-18.0); LYMPH # 2.9 K/uL (1.0-4.3); LYMPH % 29.2 % (20.0-40.0); MEAN CORPUSCULAR HEMOGLOBIN 29.4 pg (27.0-31.0); MEAN CORPUSCULAR HGB CONC 33.4 g/dL (33.0-37.0); MEAN PLATELET VOLUME 8.9 fL (7.2-11.7); MONO # 0.8 K/uL (0.0-0.8); MONO % 7.6 % (0.0-10.0); NEUT % 59.8 % (50.0-75.0); RBC 4.12 Mil/uL (4.40-5.90); RED CELL DISTRIBUTION WIDTH 15.1 % (11.5-14.5)
[2018-06-07 08:30] LABS: ALB/GLOB RATIO 0.9 (1.0-2.1); ALBUMIN 3.9 g/dL (3.5-5.0); ALT/SGPT 39 U/L (21-72); AST/SGOT 20 U/L (17-59); BLOOD UREA NITROGEN 15 mg/dL (9-20); CALCIUM 8.9 mg/dl (8.6-10.4); GFR NON-AFRICAN AMERICAN > 60
[2018-06-07] MEDS: Enoxaparin 40 mg Syringe SC SCH (10:48)
[2018-06-07] MEDS: levETIRAcetam 100 mg/ml (5ml) Oral Syringe PO SCH ×2 (10:49→18:27)
[2018-06-07] MEDS: Rosuvastatin Calcium 2.5 mg Tab PEG SCH (21:42)
[2018-06-08] MEDS: Acetylcysteine 20% Inhal Soln (4ml) INH SCH ×5 (04:18→20:52)
[2018-06-08] MEDS: Albuterol-Ipratrop 3 mg / 0.5 (3 ml) UD INH SCH ×5 (04:18→20:51)
[2018-06-08] MEDS: levETIRAcetam 100 mg/ml (5ml) Oral Syringe PO SCH ×2 (11:31→18:13)
[2018-06-08] MEDS: Enoxaparin 40 mg Syringe SC SCH (11:32)
--- NOTE | 2018-06-08 18:29 | CP.PCM.PN ---
<Myrna Vega Y - Last Filed: 06/08/18 18:26> Subjective - Date & Time of Evaluation Date of Evaluation: 06/08/18 Time of Evaluation: 07:52 - Subjective Subjective: PGY-1 Medicine Progress Note for hospitalist Dr. Moore. Patient was seen and examined today at bedside in no acute distress. Nurse reports no overnight events. Patient has had anoxic brain injury since 2014 and is nonverbal. Therefore unable to obtain ROS. Objective - Vital Signs/Intake and Output Vital Signs (last 24 hours): Temp Pulse Resp BP Pulse Ox 98.6 F 64 20 122/80 97 06/08/18 15:57 06/08/18 15:57 06/08/18 15:57 06/08/18 15:57 06/08/18 15:57 Intake and Output: 06/08/18 06/08/18 06:59 18:59 Intake Total 1700 800 Output Total 1100 400 Balance 600 400 - Medications Medications: Current Medications Acetylcysteine (Acetylcysteine 20%) 4 ml INH RQ4 [facility] Last Admin: 06/08/18 11:23 Dose: 4 ml Albuterol/Ipratropium (Duoneb 3 Mg/0.5 Mg (3 Ml) Ud) 3 ml INH RQ4 [facility] Last Admin: 06/08/18 11:23 Dose: 3 ml Aspirin (Aspirin Chewable) 81 mg PEG DAILY [facility] Last Admin: 06/08/18 11:32 Dose: 81 mg Bethanechol Chloride (Urecholine) 50 mg PO TID [facility] Last Admin: 06/08/18 18:13 Dose: 50 mg Carvedilol (Coreg) 3.125 mg PEG BID [facility] Last Admin: 06/08/18 18:13 Dose: 3.125 mg Enoxaparin Sodium (Lovenox) 40 mg SC DAILY [facility] Last Admin: 06/08/18 11:32 Dose: 40 mg Famotidine (Pepcid) 20 mg PEG DAILY [facility] Last Admin: 06/08/18 11:32 Dose: 20 mg Finasteride (Proscar) 5 mg PEG DAILY [facility] Last Admin: 06/08/18 11:32 Dose: 5 mg Levetiracetam (Keppra) 500 mg PO BID [facility] Last Admin: 06/08/18 18:13 Dose: 500 mg Rosuvastatin Calcium (Crestor) 5 mg PEG HS [facility] Last Admin: 06/07/18 21:42 Dose: 5 mg Scopolamine (Transderm-Scop) 1 patch TD Q3D [facility] Last Admin: 06/06/18 09:30 Dose: 1 patch Tamsulosin HCl (Flomax) 0.4 mg PEG DAILY [facility] Last Admin: 06/08/18 11:37 Dose: 0.4 mg - Labs Labs: 06/07/18 08:04 06/07/18 08:04 PT 10.6 SECONDS (9.7-12.2) 11/24/15 14:10 INR 1.0 11/24/15 14:10 APTT 25 SECONDS (21-34) 11/24/15 14:10 - Constitutional Appears: Non-toxic, No Acute Distress - Head Exam Head Exam: ATRAUMATIC, NORMOCEPHALIC - Eye Exam Eye Exam: Normal appearance. absent: Conjunctival injection, Scleral icterus - ENT Exam ENT Exam: Mucous Membranes Moist, Normal Exam Additional comments: trach in place, suctioning well. poor dental hygiene - Respiratory Exam Respiratory Exam: Clear to Ausculation Bilateral, NORMAL BREATHING PATTERN. absent: Rales, Rhonchi, Wheezes - Cardiovascular Exam Cardiovascular Exam: REGULAR RHYTHM, +S1, +S2. absent: Murmur - GI/Abdominal Exam GI & Abdominal Exam: Soft, Normal Bowel Sounds. absent: Tenderness Additional comments: gtube in place, good flush/flow - Extremities Exam Extremities Exam: Normal Capillary Refill, Normal Inspection. absent: Joint Swelling Additional comments: SCDs and bilateral pressure ulcer boots peripheral pulses present 3+ (radial, DP) - Neurological Exam Neurological Exam: Awake Additional comments: anoxic brain injury in 2014 - Skin Skin Exam: Dry, Intact, Normal Color, Warm Additional comments: redness in sacral area, no skin breaks Assessment and Plan - Assessment and Plan (Free Text) Plan: (1) Anoxic encephalopathy Assessment & Plan: * s/p cardiac arrest in 05/2015 * no acute changes in mental status. * Pt has non spontaneous movements. * patient is currently on 45cc/hr on tube feedings * via PEG * Aspirin 81mg daily * Keppra 500mg bid Status: Chronic (2) Respiratory failure Assessment & Plan: Trach in place, continue daily monitoring for secretions. No change in management at this time. * Continue with aggressive suctioning multiple times a day per respiratory therapist if secretions are thickened * Scopolamine 1 patch TD Q3D [facility] * Duoneb 3ml INH RQ6H * Mucomyst 4ml INH RQ6H * Most recent chest xray: * 09/28/17: no active disease. No significant interval change compared to. Status: Chronic (3) Urinary tract infection Assessment & Plan: Recurrent ID consult: Dr. Armstrong --> help appreciated * Patient is afebrile, no apparent leukocytosis * Patient is off IV abx since 08/05/17 * patient has condom catheter and Bladder scan PRN to prevent urinary retention Status: Acute (4) Urinary retention Assessment & Plan: * Tamsulosin 0.4mg daily * Finasteride 5 mg daily * Bethanechol chloride 50mg tid * Bladder scan up to 3x a week to monitor residual urine * patient has had history of recurrent UTIs Status: Acute (5) Hypokalemia Assessment & Plan: Resolved as per recent lab, 04/26/18 Will continue to monitor with subsequent lab and replete as necessary Status: Resolved (6) Sacral ulcer Assessment & Plan: Healed * Cont with offloading/cushioning/turning * Continue frequent turning, protective ointment and skin checks. Status: Resolved (7) History of coronary artery disease Assessment & Plan: * s/p cardiac stents on 06/13/15 * ASA 81mg via PEG daily * Coreg 3.125mg PEG BID * Rosuvastatin 2.5mg PO HS Status: Acute (8) Seizures Assessment & Plan: * Continue Keppra 500mg PEG BID for seizure prophylaxis * Monitor for activity Status: Acute (9) Lower extremity edema Assessment & Plan: * Improved * SCDs in place * Pressure ulcer boots on b/l * Continue to monitor Status: Acute (10) PEG tube malfunction Assessment & Plan: * 01/06/18 * GI consulted, recs appreciated * Upper endoscopy showed LA grade B, esophagitis, small hiatal hernia, patchy erythematous mucosa in the stomach, dislodged PEG tube * PEG replaced * 03/12/18 * GI - Dr. Ramirez was previously consulted * Baker is working well in PEG tube place * 03/31/18 * IR reconsulted: Dr. Schroeder - Spoke with Dr. Schroeder who stated he will replace a G tube on 04/01/18 or 04/02/18 - Replaced the current baker with a new baker until the G tube is placed - s/p replacement of gastrostomy tube 04/02/18 - Lovenox and Aspirin will resume on 04/03/18 Status: Acute (11) Prophylactic measure Assessment & Plan: * Pepcid 20 mg PEG daily * Lovenox 40mg SC daily * SCDs and offloading boots * continue to turn and reposition q2hrs * Continue to monitor medication administrations and clinical presentation weekly labs. * vasoline ointment applied to feet prn to prevent hyperkeratosis * Please hold feeding from 10pm-6am, placed into nursing communication Disposition: Plan to place patient in LTAC in the works, per case management. Myrna Vega PGY-1. Case discussed with Dr. Moore. <Jeison Moore - Last Filed: 06/10/18 17:10> Objective - Vital Signs/Intake and Output Vital Signs (last 24 hours): Temp Pulse Resp BP Pulse Ox 98.3 F 65 20 118/77 96 06/10/18 16:07 06/10/18 16:07 06/10/18 16:07 06/10/18 16:07 06/10/18 16:07 Intake and Output: 06/10/18 06/10/18 06:59 18:59 Intake Total 1600 200 Output Total 650 150 Balance 950 50 - Medications Medications: Current Medications Acetylcysteine (Acetylcysteine 20%) 4 ml INH RQ4 [facility] Last Admin: 06/10/18 16:15 Dose: 4 ml Albuterol/Ipratropium (Duoneb 3 Mg/0.5 Mg (3 Ml) Ud) 3 ml INH RQ4 [facility] Last Admin: 06/10/18 16:15 Dose: 3 ml Aspirin (Aspirin Chewable) 81 mg PEG DAILY [facility] Last Admin: 06/10/18 09:18 Dose: 81 mg Bethanechol Chloride (Urecholine) 50 mg PO TID [facility] Last Admin: 06/10/18 14:44 Dose: 50 mg Carvedilol (Coreg) 3.125 mg PEG BID [facility] Last Admin: 06/10/18 09:20 Dose: 3.125 mg Enoxaparin Sodium (Lovenox) 40 mg SC DAILY [facility] Last Admin: 06/10/18 09:15 Dose: 40 mg Famotidine (Pepcid) 20 mg PEG DAILY [facility] Last Admin: 06/10/18 09:18 Dose: 20 mg Finasteride (Proscar) 5 mg PEG DAILY [facility] Last Admin: 06/10/18 09:18 Dose: 5 mg Levetiracetam (Keppra) 500 mg PO BID [facility] Last Admin: 06/10/18 09:18 Dose: 500 mg Rosuvastatin Calcium (Crestor) 5 mg PEG HS [facility] Last Admin: 06/09/18 22:34 Dose: 5 mg Scopolamine (Transderm-Scop) 1 patch TD Q3D [facility] Last Admin: 06/09/18 10:42 Dose: 1 patch Tamsulosin HCl (Flomax) 0.4 mg PEG DAILY [facility] Last Admin: 06/10/18 09:18 Dose: 0.4 mg - Labs Labs: 06/07/18 08:04 06/07/18 08:04 PT 10.6 SECONDS (9.7-12.2) 11/24/15 14:10 INR 1.0 11/24/15 14:10 APTT 25 SECONDS (21-34) 11/24/15 14:10 Attending/Attestation - Attestation I have personally seen and examined this patient.: Yes I have fully participated in the care of the patient.: Yes I have reviewed all pertinent clinical information, including history, physical exam and plan: Yes Notes (Text): No changes
[2018-06-09] MEDS: Acetylcysteine 20% Inhal Soln (4ml) INH SCH ×7 (00:07→23:43)
[2018-06-09] MEDS: Albuterol-Ipratrop 3 mg / 0.5 (3 ml) UD INH SCH ×7 (00:07→23:43)
[2018-06-09] MEDS: Enoxaparin 40 mg Syringe SC SCH (10:40)
[2018-06-09] MEDS: levETIRAcetam 100 mg/ml (5ml) Oral Syringe PO SCH ×2 (10:41→18:00)
[2018-06-09] MEDS: Rosuvastatin Calcium 2.5 mg Tab PEG SCH ×2 (22:33→22:34)
[2018-06-10] MEDS: Acetylcysteine 20% Inhal Soln (4ml) INH SCH ×5 (03:27→19:41)
[2018-06-10] MEDS: Albuterol-Ipratrop 3 mg / 0.5 (3 ml) UD INH SCH ×5 (03:27→19:41)
--- NOTE | 2018-06-10 07:34 | CP.PCM.PN ---
<Myrna Vega Y - Last Filed: 06/10/18 22:43> Subjective - Date & Time of Evaluation Date of Evaluation: 06/10/18 Time of Evaluation: 14:30 - Subjective Subjective: PGY-1 Medicine Progress Note for hospitalist Dr. Moore. Patient was seen and examined today at bedside in no acute distress. Nurse reports no overnight events. Patient has had anoxic brain injury since 2015 and is nonverbal. Therefore unable to obtain ROS. Objective - Vital Signs/Intake and Output Vital Signs (last 24 hours): Temp Pulse Resp BP Pulse Ox 98.5 F 70 20 118/77 98 06/09/18 23:40 06/09/18 23:40 06/09/18 23:40 06/09/18 23:40 06/09/18 23:40 Intake and Output: 06/10/18 06/10/18 06:59 18:59 Intake Total 1600 Output Total 650 Balance 950 - Medications Medications: Current Medications Acetylcysteine (Acetylcysteine 20%) 4 ml INH RQ4 [facility] Last Admin: 06/10/18 03:27 Dose: 4 ml Albuterol/Ipratropium (Duoneb 3 Mg/0.5 Mg (3 Ml) Ud) 3 ml INH RQ4 [facility] Last Admin: 06/10/18 03:27 Dose: 3 ml Aspirin (Aspirin Chewable) 81 mg PEG DAILY [facility] Last Admin: 06/09/18 10:41 Dose: 81 mg Bethanechol Chloride (Urecholine) 50 mg PO TID [facility] Last Admin: 06/09/18 18:00 Dose: 50 mg Carvedilol (Coreg) 3.125 mg PEG BID [facility] Last Admin: 06/09/18 18:00 Dose: 3.125 mg Enoxaparin Sodium (Lovenox) 40 mg SC DAILY [facility] Last Admin: 06/09/18 10:40 Dose: 40 mg Famotidine (Pepcid) 20 mg PEG DAILY [facility] Last Admin: 06/09/18 10:42 Dose: 20 mg Finasteride (Proscar) 5 mg PEG DAILY [facility] Last Admin: 06/09/18 10:41 Dose: 5 mg Levetiracetam (Keppra) 500 mg PO BID [facility] Last Admin: 06/09/18 18:00 Dose: 500 mg Rosuvastatin Calcium (Crestor) 5 mg PEG HS [facility] Last Admin: 06/09/18 22:34 Dose: 5 mg Scopolamine (Transderm-Scop) 1 patch TD Q3D [facility] Last Admin: 06/09/18 10:42 Dose: 1 patch Tamsulosin HCl (Flomax) 0.4 mg PEG DAILY [facility] Last Admin: 06/09/18 10:41 Dose: 0.4 mg - Labs Labs: 06/07/18 08:04 06/07/18 08:04 PT 10.6 SECONDS (9.7-12.2) 11/24/15 14:10 INR 1.0 11/24/15 14:10 APTT 25 SECONDS (21-34) 11/24/15 14:10 - Constitutional Appears: Non-toxic, No Acute Distress - Head Exam Head Exam: ATRAUMATIC, NORMOCEPHALIC - Eye Exam Eye Exam: Normal appearance. absent: Conjunctival injection, Scleral icterus - ENT Exam ENT Exam: Mucous Membranes Moist, Normal Exam Additional comments: trach in place, suctioning well poor dental hygiene - Respiratory Exam Respiratory Exam: Clear to Ausculation Bilateral, NORMAL BREATHING PATTERN. absent: Rales, Rhonchi - Cardiovascular Exam Cardiovascular Exam: REGULAR RHYTHM, +S1, +S2. absent: Murmur - GI/Abdominal Exam GI & Abdominal Exam: Soft, Normal Bowel Sounds. absent: Tenderness Additional comments: gtube in place, good flush/flow - Extremities Exam Extremities Exam: Full ROM, Normal Capillary Refill, Normal Inspection. absent : Joint Swelling, Pedal Edema Additional comments: SCDs and bilateral pressure ulcer boots peripheral pulses present 3+ (radial, DP) - Neurological Exam Neurological Exam: Awake Additional comments: anoxic brain injury in 2014 - Skin Skin Exam: Dry, Intact, Normal Color, Warm Additional comments: redness in sacral area, no skin breaks Assessment and Plan - Assessment and Plan (Free Text) Plan: (1) Anoxic encephalopathy Assessment & Plan: * s/p cardiac arrest in 05/2015 * no acute changes in mental status. * Pt has non spontaneous movements. * patient is currently on 45cc/hr on tube feedings * via PEG * Aspirin 81mg daily * Keppra 500mg bid Status: Chronic (2) Respiratory failure Assessment & Plan: Trach in place, continue daily monitoring for secretions. No change in management at this time. * Continue with aggressive suctioning multiple times a day per respiratory therapist if secretions are thickened * Scopolamine 1 patch TD Q3D [facility] * Duoneb 3ml INH RQ6H * Mucomyst 4ml INH RQ6H * Most recent chest xray: * 09/28/17: no active disease. No significant interval change compared to. Status: Chronic (3) Urinary tract infection Assessment & Plan: Recurrent ID consult: Dr. Armstrong --> help appreciated * Patient is afebrile, no apparent leukocytosis * Patient is off IV abx since 08/05/17 * patient has condom catheter and Bladder scan PRN to prevent urinary retention Status: Acute (4) Urinary retention Assessment & Plan: * Tamsulosin 0.4mg daily * Finasteride 5 mg daily * Bethanechol chloride 50mg tid * Bladder scan up to 3x a week to monitor residual urine * patient has had history of recurrent UTIs Status: Acute (5) Hypokalemia Assessment & Plan: Resolved as per recent lab, 04/26/18 Will continue to monitor with subsequent lab and replete as necessary Status: Resolved (6) Sacral ulcer Assessment & Plan: Healed * Cont with offloading/cushioning/turning * Continue frequent turning, protective ointment and skin checks. Status: Resolved (7) History of coronary artery disease Assessment & Plan: * s/p cardiac stents on 06/13/15 * ASA 81mg via PEG daily * Coreg 3.125mg PEG BID * Rosuvastatin 2.5mg PO HS Status: Acute (8) Seizures Assessment & Plan: * Continue Keppra 500mg PEG BID for seizure prophylaxis * Monitor for activity Status: Acute (9) Lower extremity edema Assessment & Plan: * Improved * SCDs in place * Pressure ulcer boots on b/l * Continue to monitor Status: Acute (10) PEG tube malfunction Assessment & Plan: * 01/06/18 * GI consulted, recs appreciated * Upper endoscopy showed LA grade B, esophagitis, small hiatal hernia, patchy erythematous mucosa in the stomach, dislodged PEG tube * PEG replaced * 03/12/18 * GI - Dr. Ramirez was previously consulted * Baker is working well in PEG tube place * 03/31/18 * IR reconsulted: Dr. Schroeder - Spoke with Dr. Schroeder who stated he will replace a G tube on 04/01/18 or 04/02/18 - Replaced the current baker with a new baker until the G tube is placed - s/p replacement of gastrostomy tube 04/02/18 - Lovenox and Aspirin will resume on 04/03/18 Status: Acute (11) Prophylactic measure Assessment & Plan: * Pepcid 20 mg PEG daily * Lovenox 40mg SC daily * SCDs and offloading boots * continue to turn and reposition q2hrs * Continue to monitor medication administrations and clinical presentation weekly labs. * vasoline ointment applied to feet prn to prevent hyperkeratosis * Please hold feeding from 10pm-6am, placed into nursing communication Disposition: Plan to place patient in LTAC in the works, per case management. Myrna Vega PGY-1. Case discussed with Dr. Moore. <Jeison Moore - Last Filed: 06/13/18 20:14> Objective - Vital Signs/Intake and Output Vital Signs (last 24 hours): Temp Pulse Resp BP Pulse Ox 98.2 F 73 20 102/64 96 06/13/18 15:20 06/13/18 15:20 06/13/18 15:20 06/13/18 15:20 06/13/18 15:20 Intake and Output: 06/13/18 06/14/18 18:59 06:59 Intake Total 300 Output Total 250 Balance 50 - Medications Medications: Current Medications Acetylcysteine (Acetylcysteine 20%) 4 ml INH RQ4 [facility] Last Admin: 06/13/18 16:24 Dose: 4 ml Albuterol/Ipratropium (Duoneb 3 Mg/0.5 Mg (3 Ml) Ud) 3 ml INH RQ4 [facility] Last Admin: 06/13/18 16:24 Dose: 3 ml Aspirin (Aspirin Chewable) 81 mg PEG DAILY [facility] Last Admin: 06/13/18 09:58 Dose: 81 mg Bethanechol Chloride (Urecholine) 50 mg PO TID [facility] Last Admin: 06/13/18 18:36 Dose: 50 mg Carvedilol (Coreg) 3.125 mg PEG BID [facility] Last Admin: 06/13/18 18:36 Dose: 3.125 mg Enoxaparin Sodium (Lovenox) 40 mg SC DAILY [facility] Last Admin: 06/13/18 09:58 Dose: 40 mg Famotidine (Pepcid) 20 mg PEG DAILY [facility] Last Admin: 06/13/18 09:57 Dose: 20 mg Finasteride (Proscar) 5 mg PEG DAILY [facility] Last Admin: 06/13/18 09:57 Dose: 5 mg Levetiracetam (Keppra) 500 mg PO BID [facility] Last Admin: 06/13/18 18:36 Dose: 500 mg Rosuvastatin Calcium (Crestor) 5 mg PEG HS [facility] Last Admin: 06/12/18 22:18 Dose: 5 mg Scopolamine (Transderm-Scop) 1 patch TD Q3D [facility] Last Admin: 06/12/18 10:28 Dose: 1 patch Tamsulosin HCl (Flomax) 0.4 mg PEG DAILY [facility] Last Admin: 06/13/18 10:12 Dose: 0.4 mg - Labs Labs: 06/07/18 08:04 06/07/18 08:04 PT 10.6 SECONDS (9.7-12.2) 11/24/15 14:10 INR 1.0 11/24/15 14:10 APTT 25 SECONDS (21-34) 11/24/15 14:10 Attending/Attestation - Attestation I have personally seen and examined this patient.: No I have fully participated in the care of the patient.: Yes I have reviewed all pertinent clinical information, including history, physical exam and plan: Yes
[2018-06-10] MEDS: Enoxaparin 40 mg Syringe SC SCH (09:15)
[2018-06-10] MEDS: levETIRAcetam 100 mg/ml (5ml) Oral Syringe PO SCH ×2 (09:18→18:20)
[2018-06-10] MEDS: Rosuvastatin Calcium 2.5 mg Tab PEG SCH (22:18)
[2018-06-11] MEDS: Acetylcysteine 20% Inhal Soln (4ml) INH SCH ×7 (00:09→23:56)
[2018-06-11] MEDS: Albuterol-Ipratrop 3 mg / 0.5 (3 ml) UD INH SCH ×7 (00:09→23:56)
[2018-06-11] MEDS: levETIRAcetam 100 mg/ml (5ml) Oral Syringe PO SCH ×2 (11:03→17:31)
[2018-06-11] MEDS: Enoxaparin 40 mg Syringe SC SCH (11:04)
[2018-06-11] MEDS: Rosuvastatin Calcium 2.5 mg Tab PEG SCH (21:29)
[2018-06-12] MEDS: Acetylcysteine 20% Inhal Soln (4ml) INH SCH ×7 (03:23→20:19)
[2018-06-12] MEDS: Albuterol-Ipratrop 3 mg / 0.5 (3 ml) UD INH SCH ×5 (03:24→20:19)
[2018-06-12] MEDS: Enoxaparin 40 mg Syringe SC SCH (10:27)
[2018-06-12] MEDS: levETIRAcetam 100 mg/ml (5ml) Oral Syringe PO SCH ×2 (10:28→18:33)
[2018-06-12] MEDS: Rosuvastatin Calcium 2.5 mg Tab PEG SCH (22:18)
[2018-06-13] MEDS: Albuterol-Ipratrop 3 mg / 0.5 (3 ml) UD INH SCH ×5 (01:01→16:24)
[2018-06-13] MEDS: Acetylcysteine 20% Inhal Soln (4ml) INH SCH ×5 (01:02→16:24)
[2018-06-13] MEDS: Enoxaparin 40 mg Syringe SC SCH (09:58)
[2018-06-13] MEDS: levETIRAcetam 100 mg/ml (5ml) Oral Syringe PO SCH ×2 (09:58→18:36)
[2018-06-13] MEDS: Rosuvastatin Calcium 2.5 mg Tab PEG SCH (21:19)
[2018-06-14] MEDS: Albuterol-Ipratrop 3 mg / 0.5 (3 ml) UD INH SCH ×7 (00:18→23:51)
[2018-06-14] MEDS: Acetylcysteine 20% Inhal Soln (4ml) INH SCH ×7 (00:19→23:51)
[2018-06-14] MEDS: Enoxaparin 40 mg Syringe SC SCH (10:27)
[2018-06-14] MEDS: levETIRAcetam 100 mg/ml (5ml) Oral Syringe PO SCH ×2 (10:27→17:51)
[2018-06-14 11:28] LABS: BASO % 0.2 % (0.0-2.0); EOS # 0.3 K/uL (0.0-0.7); EOS % 3.3 % (0.0-4.0); HEMOGLOBIN 11.4 g/dL (12.0-18.0); LYMPH # 2.8 K/uL (1.0-4.3); LYMPH % 33.2 % (20.0-40.0); MEAN CELL VOLUME 88.5 fL (80.0-94.0); MEAN CORPUSCULAR HEMOGLOBIN 29.4 pg (27.0-31.0); MEAN CORPUSCULAR HGB CONC 33.2 g/dL (33.0-37.0); MONO # 0.9 K/uL (0.0-0.8); MONO % 10.2 % (0.0-10.0); NEUT # 4.5 K/uL (1.8-7.0); NEUT % 53.1 % (50.0-75.0); RBC 3.88 Mil/uL (4.40-5.90); RED CELL DISTRIBUTION WIDTH 15.1 % (11.5-14.5); WHITE BLOOD COUNT 8.5 K/uL (4.8-10.8)
[2018-06-14 11:59] LABS: ALB/GLOB RATIO 0.9 (1.0-2.1); ALBUMIN 3.5 g/dL (3.5-5.0); ALT/SGPT 41 U/L (21-72); AST/SGOT 19 U/L (17-59); BLOOD UREA NITROGEN 14 mg/dL (9-20); CALCIUM 8.7 mg/dl (8.6-10.4); GFR NON-AFRICAN AMERICAN > 60
[2018-06-14] MEDS: Rosuvastatin Calcium 2.5 mg Tab PEG SCH (21:43)
[2018-06-15] MEDS: Albuterol-Ipratrop 3 mg / 0.5 (3 ml) UD INH SCH ×6 (03:14→23:53)
[2018-06-15] MEDS: Acetylcysteine 20% Inhal Soln (4ml) INH SCH ×6 (03:14→23:53)
--- NOTE | 2018-06-15 06:23 | CP.PCM.PN ---
Subjective - Date & Time of Evaluation Date of Evaluation: 06/15/18 Time of Evaluation: 07:40 - Subjective Subjective: PGY-1 Medicine Progress Note for Dr. Chavis Patient was seen and examined today at bedside in no acute distress. Nurse reports good output overnight and no acute events. Patient is nonverbal and therefore unable to report any new problems and obtain ROS. Objective - Vital Signs/Intake and Output Vital Signs (last 24 hours): Temp Pulse Resp BP Pulse Ox 98.9 F 86 20 105/70 98 06/15/18 00:05 06/15/18 00:05 06/15/18 00:05 06/15/18 00:05 06/15/18 00:05 Intake and Output: 06/14/18 06/15/18 18:59 06:59 Intake Total 400 800 Output Total 300 400 Balance 100 400 - Medications Medications: Current Medications Acetylcysteine (Acetylcysteine 20%) 4 ml INH RQ4 [facility] Last Admin: 06/15/18 03:14 Dose: 4 ml Albuterol/Ipratropium (Duoneb 3 Mg/0.5 Mg (3 Ml) Ud) 3 ml INH RQ4 [facility] Last Admin: 06/15/18 03:14 Dose: 3 ml Aspirin (Aspirin Chewable) 81 mg PEG DAILY [facility] Last Admin: 06/14/18 10:27 Dose: 81 mg Bethanechol Chloride (Urecholine) 50 mg PO TID [facility] Last Admin: 06/14/18 17:51 Dose: 50 mg Carvedilol (Coreg) 3.125 mg PEG BID [facility] Last Admin: 06/14/18 17:51 Dose: 3.125 mg Enoxaparin Sodium (Lovenox) 40 mg SC DAILY [facility] Last Admin: 06/14/18 10:27 Dose: 40 mg Famotidine (Pepcid) 20 mg PEG DAILY [facility] Last Admin: 06/14/18 10:28 Dose: 20 mg Finasteride (Proscar) 5 mg PEG DAILY [facility] Last Admin: 06/14/18 10:31 Dose: 5 mg Levetiracetam (Keppra) 500 mg PO BID [facility] Last Admin: 06/14/18 17:51 Dose: 500 mg Rosuvastatin Calcium (Crestor) 5 mg PEG HS [facility] Last Admin: 06/14/18 21:43 Dose: 5 mg Scopolamine (Transderm-Scop) 1 patch TD Q3D [facility] Last Admin: 06/12/18 10:28 Dose: 1 patch Tamsulosin HCl (Flomax) 0.4 mg PEG DAILY [facility] Last Admin: 06/14/18 10:27 Dose: 0.4 mg - Labs Labs: 06/14/18 11:22 06/14/18 11:22 PT 10.6 SECONDS (9.7-12.2) 11/24/15 14:10 INR 1.0 11/24/15 14:10 APTT 25 SECONDS (21-34) 11/24/15 14:10 - Constitutional Appears: Non-toxic, No Acute Distress - Head Exam Head Exam: ATRAUMATIC, NORMOCEPHALIC - ENT Exam ENT Exam: Mucous Membranes Moist Additional comments: trach in place, suctioning well poor dental hygiene - Respiratory Exam Respiratory Exam: Clear to Ausculation Bilateral, NORMAL BREATHING PATTERN. absent: Rales, Rhonchi, Wheezes - Cardiovascular Exam Cardiovascular Exam: REGULAR RHYTHM, +S1, +S2. absent: Murmur - GI/Abdominal Exam GI & Abdominal Exam: Soft, Normal Bowel Sounds. absent: Tenderness Additional comments: Gtube in place, good flow/flush - Extremities Exam Extremities Exam: Normal Capillary Refill Additional comments: SCDs and bilateral pressure ulcer boots peripheral pulses present (radial, DP) left upper extremity cool to touch, placed blanket over to protect from air conditioning - Neurological Exam Additional comments: anoxic brain injury in 2014 - Skin Skin Exam: Dry, Intact, Normal Color, Warm Additional comments: redness in sacral area, no skin breaks Assessment and Plan - Assessment and Plan (Free Text) Plan: (1) Anoxic encephalopathy Assessment & Plan: * s/p cardiac arrest in 05/2015 * no acute changes in mental status. * Pt has non spontaneous movements. * patient is currently on 45cc/hr on tube feedings * via PEG * Aspirin 81mg daily * Keppra 500mg bid Status: Chronic (2) Respiratory failure Assessment & Plan: Trach in place, continue daily monitoring for secretions. No change in management at this time. * Continue with aggressive suctioning multiple times a day per respiratory therapist if secretions are thickened * Scopolamine 1 patch TD Q3D [facility] * Duoneb 3ml INH RQ6H * Mucomyst 4ml INH RQ6H * Most recent chest xray: * 09/28/17: no active disease. No significant interval change compared to. Status: Chronic (3) Urinary tract infection Assessment & Plan: Recurrent ID consult: Dr. Armstrong --> help appreciated * Patient is afebrile, no apparent leukocytosis * Patient is off IV abx since 08/05/17 * patient has condom catheter and Bladder scan PRN to prevent urinary retention Status: Acute (4) Urinary retention Assessment & Plan: * Tamsulosin 0.4mg daily * Finasteride 5 mg daily * Bethanechol chloride 50mg tid * Bladder scan up to 3x a week to monitor residual urine * patient has had history of recurrent UTIs Status: Acute (5) Hypokalemia Assessment & Plan: Resolved as per recent lab, 04/26/18 Will continue to monitor with subsequent lab and replete as necessary Status: Resolved (6) Sacral ulcer Assessment & Plan: Healed * Cont with offloading/cushioning/turning * Continue frequent turning, protective ointment and skin checks. Status: Resolved (7) History of coronary artery disease Assessment & Plan: * s/p cardiac stents on 06/13/15 * ASA 81mg via PEG daily * Coreg 3.125mg PEG BID * Rosuvastatin 2.5mg PO HS Status: Acute (8) Seizures Assessment & Plan: * Continue Keppra 500mg PEG BID for seizure prophylaxis * Monitor for activity Status: Acute (9) Lower extremity edema Assessment & Plan: * Improved * SCDs in place * Pressure ulcer boots on b/l * Continue to monitor Status: Acute (10) PEG tube malfunction Assessment & Plan: * 01/06/18 * GI consulted, recs appreciated * Upper endoscopy showed LA grade B, esophagitis, small hiatal hernia, patchy erythematous mucosa in the stomach, dislodged PEG tube * PEG replaced * 03/12/18 * GI - Dr. Ramirez was previously consulted * Baker is working well in PEG tube place * 03/31/18 * IR reconsulted: Dr. Schroeder - Spoke with Dr. Schroeder who stated he will replace a G tube on 04/01/18 or 04/02/18 - Replaced the current baker with a new baker until the G tube is placed - s/p replacement of gastrostomy tube 04/02/18 - Lovenox and Aspirin will resume on 04/03/18 Status: Acute (11) Prophylactic measure Assessment & Plan: * Pepcid 20 mg PEG daily * Lovenox 40mg SC daily * SCDs and offloading boots * continue to turn and reposition q2hrs * Continue to monitor medication administrations and clinical presentation weekly labs. * Vasoline ointment applied to feet prn to prevent hyperkeratosis * Please hold feeding from 10pm-6am, placed into nursing communication Disposition: Plan to place patient in LTAC in the works, per case management. Myrna Vega PGY-1. Case discussed with Dr. Chavis
[2018-06-15] MEDS: Enoxaparin 40 mg Syringe SC SCH (10:08)
[2018-06-15] MEDS: levETIRAcetam 100 mg/ml (5ml) Oral Syringe PO SCH ×2 (10:09→17:24)
[2018-06-15] MEDS: Potassium Chloride 20 mEq ER Tab PO SCH (10:13)
[2018-06-16] MEDS: Acetylcysteine 20% Inhal Soln (4ml) INH SCH ×5 (03:25→19:23)
[2018-06-16] MEDS: Albuterol-Ipratrop 3 mg / 0.5 (3 ml) UD INH SCH ×5 (03:25→19:23)
[2018-06-16] MEDS: Enoxaparin 40 mg Syringe SC SCH (10:00)
[2018-06-16] MEDS: Potassium Chloride 20 mEq ER Tab PO SCH (10:00)
[2018-06-16] MEDS: levETIRAcetam 100 mg/ml (5ml) Oral Syringe PO SCH ×2 (10:01→17:17)
[2018-06-16] MEDS: Rosuvastatin Calcium 2.5 mg Tab PEG SCH (21:27)
[2018-06-17] MEDS: Acetylcysteine 20% Inhal Soln (4ml) INH SCH ×7 (00:59→23:50)
[2018-06-17] MEDS: Albuterol-Ipratrop 3 mg / 0.5 (3 ml) UD INH SCH ×7 (00:59→23:50)
--- NOTE | 2018-06-17 06:48 | CP.PCM.PN ---
Subjective - Date & Time of Evaluation Date of Evaluation: 06/17/18 Time of Evaluation: 06:47 - Subjective Subjective: PGY-1 Medicine Progress Note for Dr. Chavis Patient was seen and examined today at bedside in no acute distress. Nurse reports no overnight event. Patient had anoxic brain injury in 2014 and is nonverbal; unable to obtain ROS. Objective - Vital Signs/Intake and Output Vital Signs (last 24 hours): Temp Pulse Resp BP Pulse Ox 98.5 F 72 20 114/74 97 06/16/18 23:45 06/16/18 23:45 06/16/18 23:45 06/16/18 23:45 06/16/18 23:45 Intake and Output: 06/16/18 06/17/18 18:59 06:59 Intake Total 1600 Output Total 400 1000 Balance -400 600 - Medications Medications: Current Medications Acetylcysteine (Acetylcysteine 20%) 4 ml INH RQ4 [facility] Last Admin: 06/17/18 04:53 Dose: 4 ml Albuterol/Ipratropium (Duoneb 3 Mg/0.5 Mg (3 Ml) Ud) 3 ml INH RQ4 [facility] Last Admin: 06/17/18 04:52 Dose: 3 ml Aspirin (Aspirin Chewable) 81 mg PEG DAILY [facility] Last Admin: 06/16/18 10:00 Dose: 81 mg Bethanechol Chloride (Urecholine) 50 mg PO TID [facility] Last Admin: 06/16/18 17:17 Dose: 50 mg Carvedilol (Coreg) 3.125 mg PEG BID [facility] Last Admin: 06/16/18 17:16 Dose: 3.125 mg Enoxaparin Sodium (Lovenox) 40 mg SC DAILY [facility] Last Admin: 06/16/18 10:00 Dose: 40 mg Famotidine (Pepcid) 20 mg PEG DAILY [facility] Last Admin: 06/16/18 10:00 Dose: 20 mg Finasteride (Proscar) 5 mg PEG DAILY [facility] Last Admin: 06/16/18 10:00 Dose: 5 mg Levetiracetam (Keppra) 500 mg PO BID [facility] Last Admin: 06/16/18 17:17 Dose: 500 mg Potassium Chloride (K-Dur 20 Meq Er Tab) 20 meq PO DAILY [facility] Last Admin: 06/16/18 10:00 Dose: 20 meq Rosuvastatin Calcium (Crestor) 5 mg PEG HS [facility] Last Admin: 06/16/18 21:27 Dose: 5 mg Scopolamine (Transderm-Scop) 1 patch TD Q3D [facility] Last Admin: 06/15/18 10:09 Dose: 1 patch Tamsulosin HCl (Flomax) 0.4 mg PEG DAILY [facility] Last Admin: 06/16/18 10:00 Dose: 0.4 mg - Labs Labs: 06/14/18 11:22 06/14/18 11:22 PT 10.6 SECONDS (9.7-12.2) 11/24/15 14:10 INR 1.0 11/24/15 14:10 APTT 25 SECONDS (21-34) 11/24/15 14:10 - Constitutional Appears: Non-toxic, No Acute Distress - Head Exam Head Exam: ATRAUMATIC, NORMOCEPHALIC - Eye Exam Eye Exam: EOMI, Normal appearance - ENT Exam ENT Exam: Mucous Membranes Moist, Normal Exam - Neck Exam Additional comments: trach in place, suctioning well poor dental hygiene - Respiratory Exam Respiratory Exam: Clear to Ausculation Bilateral, NORMAL BREATHING PATTERN - Cardiovascular Exam Cardiovascular Exam: REGULAR RHYTHM, +S1, +S2. absent: Murmur - GI/Abdominal Exam GI & Abdominal Exam: Soft, Normal Bowel Sounds. absent: Tenderness Additional comments: Gtube in place, good flow/flush - Extremities Exam Extremities Exam: Normal Capillary Refill, Normal Inspection. absent: Joint Swelling, Pedal Edema Additional comments: SCDs and bilateral pressure ulcer boots peripheral pulses present (radial, DP) - Neurological Exam Additional comments: anoxic brain injury in 2014 - Skin Skin Exam: Dry, Intact, Normal Color Assessment and Plan - Assessment and Plan (Free Text) Plan: (1) Anoxic encephalopathy Assessment & Plan: * s/p cardiac arrest in 05/2015 * no acute changes in mental status. * Pt has non spontaneous movements. * patient is currently on 45cc/hr on tube feedings * via PEG * Aspirin 81mg daily * Keppra 500mg bid Status: Chronic (2) Respiratory failure Assessment & Plan: Trach in place, continue daily monitoring for secretions. No change in management at this time. * Continue with aggressive suctioning multiple times a day per respiratory therapist if secretions are thickened * Scopolamine 1 patch TD Q3D [facility] * Duoneb 3ml INH RQ6H * Mucomyst 4ml INH RQ6H * Most recent chest xray: * 09/28/17: no active disease. No significant interval change compared to. Status: Chronic (3) Urinary tract infection Assessment & Plan: Recurrent ID consult: Dr. Armstrong --> help appreciated * Patient is afebrile, no apparent leukocytosis * Patient is off IV abx since 08/05/17 * patient has condom catheter and Bladder scan PRN to prevent urinary retention Status: Acute (4) Urinary retention Assessment & Plan: * Tamsulosin 0.4mg daily * Finasteride 5 mg daily * Bethanechol chloride 50mg tid * Bladder scan up to 3x a week to monitor residual urine * patient has had history of recurrent UTIs Status: Acute (5) Hypokalemia Assessment & Plan: Resolved as per recent lab, 04/26/18 Will continue to monitor with subsequent lab and replete as necessary Status: Resolved (6) Sacral ulcer Assessment & Plan: Healed * Cont with offloading/cushioning/turning * Continue frequent turning, protective ointment and skin checks. Status: Resolved (7) History of coronary artery disease Assessment & Plan: * s/p cardiac stents on 06/13/15 * ASA 81mg via PEG daily * Coreg 3.125mg PEG BID * Rosuvastatin 2.5mg PO HS Status: Acute (8) Seizures Assessment & Plan: * Continue Keppra 500mg PEG BID for seizure prophylaxis * Monitor for activity Status: Acute (9) Lower extremity edema Assessment & Plan: * Improved * SCDs in place * Pressure ulcer boots on b/l * Continue to monitor Status: Acute (10) PEG tube malfunction Assessment & Plan: * 01/06/18 * GI consulted, recs appreciated * Upper endoscopy showed LA grade B, esophagitis, small hiatal hernia, patchy erythematous mucosa in the stomach, dislodged PEG tube * PEG replaced * 03/12/18 * GI - Dr. Ramirez was previously consulted * Baker is working well in PEG tube place * 03/31/18 * IR reconsulted: Dr. Schroeder - Spoke with Dr. Schroeder who stated he will replace a G tube on 04/01/18 or 04/02/18 - Replaced the current baker with a new baker until the G tube is placed - s/p replacement of gastrostomy tube 04/02/18 - Lovenox and Aspirin will resume on 04/03/18 Status: Acute (11) Prophylactic measure Assessment & Plan: * Pepcid 20 mg PEG daily * Lovenox 40mg SC daily * SCDs and offloading boots * continue to turn and reposition q2hrs * Continue to monitor medication administrations and clinical presentation weekly labs. * Vasoline ointment applied to feet prn to prevent hyperkeratosis * Please hold feeding from 10pm-6am, placed into nursing communication Disposition: Plan to place patient in LTAC in the works, per case management. Myrna Vega PGY-1. Case discussed with Dr. Chavis
[2018-06-17] MEDS: levETIRAcetam 100 mg/ml (5ml) Oral Syringe PO SCH ×2 (10:38→17:28)
[2018-06-17] MEDS: Potassium Chloride 20 mEq ER Tab PO SCH (10:39)
[2018-06-17] MEDS: Enoxaparin 40 mg Syringe SC SCH (10:39)
[2018-06-17] MEDS: Rosuvastatin Calcium 2.5 mg Tab PEG SCH (22:30)
[2018-06-18] MEDS: Acetylcysteine 20% Inhal Soln (4ml) INH SCH ×5 (03:39→20:17)
[2018-06-18] MEDS: Albuterol-Ipratrop 3 mg / 0.5 (3 ml) UD INH SCH ×4 (03:39→20:12)
[2018-06-18] MEDS: Enoxaparin 40 mg Syringe SC SCH (10:36)
[2018-06-18] MEDS: Potassium Chloride 20 mEq ER Tab PO SCH (10:36)
[2018-06-18] MEDS: levETIRAcetam 100 mg/ml (5ml) Oral Syringe PO SCH ×2 (10:37→17:19)
[2018-06-18] MEDS: Rosuvastatin Calcium 2.5 mg Tab PEG SCH (21:09)
[2018-06-19] MEDS: Acetylcysteine 20% Inhal Soln (4ml) INH SCH ×6 (00:49→19:51)
[2018-06-19] MEDS: Albuterol-Ipratrop 3 mg / 0.5 (3 ml) UD INH SCH ×3 (00:49→07:28)
[2018-06-19] MEDS: Potassium Chloride 20 mEq ER Tab PO SCH (10:40)
[2018-06-19] MEDS: Enoxaparin 40 mg Syringe SC SCH (10:41)
[2018-06-19] MEDS: levETIRAcetam 100 mg/ml (5ml) Oral Syringe PO SCH ×2 (10:41→17:36)
[2018-06-19] MEDS: Rosuvastatin Calcium 2.5 mg Tab PEG SCH (21:31)
[2018-06-20] MEDS: Potassium Chloride 20 mEq ER Tab PO SCH (09:45)
[2018-06-20] MEDS: levETIRAcetam 100 mg/ml (5ml) Oral Syringe PO SCH ×2 (09:45→17:19)
[2018-06-20] MEDS: Enoxaparin 40 mg Syringe SC SCH (09:46)
[2018-06-20] MEDS: Acetylcysteine 20% Inhal Soln (4ml) INH SCH ×4 (17:03→20:05)
[2018-06-20] MEDS: Albuterol-Ipratrop 3 mg / 0.5 (3 ml) UD INH SCH ×2 (19:49→20:06)
[2018-06-21] MEDS: Acetylcysteine 20% Inhal Soln (4ml) INH SCH ×7 (00:49→19:45)
[2018-06-21] MEDS: Albuterol-Ipratrop 3 mg / 0.5 (3 ml) UD INH SCH ×6 (00:50→19:44)
--- NOTE | 2018-06-21 07:57 | CP.PCM.PN ---
Subjective - Date & Time of Evaluation Date of Evaluation: 06/21/18 Objective - Vital Signs/Intake and Output Vital Signs (last 24 hours): Temp Pulse Resp BP Pulse Ox 98.3 F 77 20 114/74 98 06/21/18 07:34 06/21/18 07:34 06/21/18 07:34 06/21/18 07:34 06/21/18 07:34 Intake and Output: 06/21/18 06/21/18 06:59 18:59 Intake Total 800 Output Total 450 Balance 350 - Medications Medications: Current Medications Acetylcysteine (Acetylcysteine 20%) 4 ml INH RQ4 [facility] Last Admin: 06/21/18 05:03 Dose: Not Given Albuterol/Ipratropium (Duoneb 3 Mg/0.5 Mg (3 Ml) Ud) 3 ml INH RQ4 [facility] Last Admin: 06/21/18 05:04 Dose: 3 ml Aspirin (Aspirin Chewable) 81 mg PEG DAILY [facility] Last Admin: 06/20/18 09:45 Dose: 81 mg Bethanechol Chloride (Urecholine) 50 mg PEG BID [facility] Last Admin: 06/20/18 17:19 Dose: 50 mg Carvedilol (Coreg) 3.125 mg PEG BID [facility] Last Admin: 06/20/18 17:27 Dose: 3.125 mg Enoxaparin Sodium (Lovenox) 40 mg SC DAILY [facility] Last Admin: 06/20/18 09:46 Dose: 40 mg Famotidine (Pepcid) 20 mg PEG DAILY [facility] Last Admin: 06/20/18 09:45 Dose: 20 mg Finasteride (Proscar) 5 mg PEG DAILY [facility] Last Admin: 06/20/18 10:02 Dose: 5 mg Levetiracetam (Keppra) 500 mg PO BID [facility] Last Admin: 06/20/18 17:19 Dose: 500 mg Potassium Chloride (K-Dur 20 Meq Er Tab) 20 meq PO DAILY [facility] Last Admin: 06/20/18 09:45 Dose: 20 meq Rosuvastatin Calcium (Crestor) 5 mg PEG HS [facility] Last Admin: 06/20/18 22:21 Dose: 5 mg Scopolamine (Transderm-Scop) 1 patch TD Q3D [facility] Last Admin: 06/15/18 10:09 Dose: 1 patch Tamsulosin HCl (Flomax) 0.4 mg PEG DAILY [facility] Last Admin: 06/20/18 09:45 Dose: 0.4 mg - Labs Labs: 06/14/18 11:22 06/14/18 11:22 PT 10.6 SECONDS (9.7-12.2) 11/24/15 14:10 INR 1.0 11/24/15 14:10 APTT 25 SECONDS (21-34) 11/24/15 14:10
[2018-06-21] MEDS: levETIRAcetam 100 mg/ml (5ml) Oral Syringe PO SCH ×2 (10:09→17:11)
[2018-06-21] MEDS: Potassium Chloride 20 mEq ER Tab PO SCH (10:09)
[2018-06-21] MEDS: Enoxaparin 40 mg Syringe SC SCH (10:09)
[2018-06-22] MEDS: Acetylcysteine 20% Inhal Soln (4ml) INH SCH ×6 (00:19→20:04)
[2018-06-22] MEDS: Albuterol-Ipratrop 3 mg / 0.5 (3 ml) UD INH SCH ×6 (00:21→20:04)
--- NOTE | 2018-06-22 05:57 | CP.PCM.PN ---
<Mona Adams - Last Filed: 06/22/18 16:58> Subjective - Date & Time of Evaluation Date of Evaluation: 06/22/18 Time of Evaluation: 09:00 - Subjective Subjective: PGY-1 Mona Adams D.O. Medicine progress note for Dr. Herman service : Patient was seen and examined today at bedside in no acute distress. Nurse reports no overnight event. [place] cath is in place. Gastric tube functioning; no evidence of infexction. Trach in place and functioning; no evidence of infection. SCDs and bilateral pressure ulcer boots are on LEs. No sacral ulcer visualized. Patient had anoxic brain injury in 2015 and is nonverbal; unable to obtain ROS. Objective - Vital Signs/Intake and Output Vital Signs (last 24 hours): Temp Pulse Resp BP Pulse Ox 98.9 F 76 20 108/72 100 06/21/18 23:37 06/21/18 23:37 06/21/18 23:37 06/21/18 23:37 06/21/18 23:37 Intake and Output: 06/21/18 06/22/18 18:59 06:59 Intake Total 1200 800 Output Total 1200 300 Balance 0 500 - Medications Medications: Current Medications Acetylcysteine (Acetylcysteine 20%) 4 ml INH RQ4 [facility] Last Admin: 06/22/18 03:15 Dose: Not Given Albuterol/Ipratropium (Duoneb 3 Mg/0.5 Mg (3 Ml) Ud) 3 ml INH RQ4 [facility] Last Admin: 06/22/18 03:16 Dose: 3 ml Aspirin (Aspirin Chewable) 81 mg PEG DAILY [facility] Last Admin: 06/21/18 10:09 Dose: 81 mg Bethanechol Chloride (Urecholine) 50 mg PEG BID [facility] Last Admin: 06/21/18 17:11 Dose: 50 mg Carvedilol (Coreg) 3.125 mg PEG BID [facility] Last Admin: 06/21/18 17:10 Dose: 3.125 mg Enoxaparin Sodium (Lovenox) 40 mg SC DAILY [facility] Last Admin: 06/21/18 10:09 Dose: 40 mg Famotidine (Pepcid) 20 mg PEG DAILY [facility] Last Admin: 06/21/18 10:09 Dose: 20 mg Finasteride (Proscar) 5 mg PEG DAILY [facility] Last Admin: 06/21/18 10:09 Dose: 5 mg Levetiracetam (Keppra) 500 mg PO BID [facility] Last Admin: 06/21/18 17:11 Dose: 500 mg Potassium Chloride (K-Dur 20 Meq Er Tab) 20 meq PO DAILY [facility] Last Admin: 06/21/18 10:09 Dose: 20 meq Rosuvastatin Calcium (Crestor) 5 mg PEG HS [facility] Last Admin: 06/21/18 21:49 Dose: 5 mg Scopolamine (Transderm-Scop) 1 patch TD Q3D [facility] Last Admin: 06/15/18 10:09 Dose: 1 patch Tamsulosin HCl (Flomax) 0.4 mg PEG DAILY [facility] Last Admin: 06/21/18 10:09 Dose: 0.4 mg - Labs Labs: 06/14/18 11:22 06/14/18 11:22 PT 10.6 SECONDS (9.7-12.2) 11/24/15 14:10 INR 1.0 11/24/15 14:10 APTT 25 SECONDS (21-34) 11/24/15 14:10 - Constitutional Appears: No Acute Distress, Younger Than Stated Age, Chronically Ill, Other ( decerebrate posturing) - Head Exam Head Exam: NORMAL INSPECTION - Eye Exam Pupil Exam: Fixed - ENT Exam ENT Exam: Mucous Membranes Moist Additional comments: poor dental hygiene, copious oral secretions - Neck Exam Neck Exam: Normal Inspection - Respiratory Exam Respiratory Exam: NORMAL BREATHING PATTERN Additional comments: trach - Cardiovascular Exam Cardiovascular Exam: REGULAR RHYTHM, +S1, +S2 - GI/Abdominal Exam GI & Abdominal Exam: Soft Additional comments: G tube - Rectal Exam Rectal Exam: Deferred - Exam Additional comments: [place] cath in place - Extremities Exam Extremities Exam: Normal Inspection Additional comments: SCDs and bilateral pressure ulcer boots - Back Exam Additional comments: mild redness of sacrum, barrier cream in place, no ulceration noted - Neurological Exam Additional comments: anoxic brain injury- nonverbal, responsive to painful stimuli only - Skin Skin Exam: Intact, Pallor (baseline), Warm Assessment and Plan - Assessment and Plan (Free Text) Assessment: Patient is a 67 yo [place]an male who suffered an anoxic brain injury after a cardiac arrest in 2014. At the time, he was found to have an intracranial hemorrhage and occlusion of the RCA and LAD. He is now nonverbal and only responds to painful stimuli. Patients family is uncooperative with placement of patient- originally wanted return to [place]. Plan: Anoxic encephalopathy, chronic, stable- s/p cardiac arrest in 05/2015 - PEG tube 45cc/hr on tube feedings - Keppra 500mg bid Respiratory failure, chronic, stable - RT consult - Trach in place- daily monitoring for secretions - Aggressive suctioning multiple times a day per respiratory therapist if secretions are thickened - Scopolamine 1 patch TD Q3D JOO - Duoneb 3ml INH RQ6H - Mucomyst 4ml INH RQ6H Urinary tract infection, recurrent, resolved - ID consult: Dr. Armstrong - Afebrile, no leukocytosis - Off IV abx since 08/05/17 - [place] condom catheter and Bladder scan PRN to prevent urinary retention Urinary retention, chronic, stable - Tamsulosin 0.4mg daily - Finasteride 5 mg daily - Bethanechol chloride 50mg tid - Bladder scan up to 3x a week prn to monitor residual urine Hypokalemia, chronic - Most recent K 3.3 on 06/14/18 - KCl 20 mEq daily - Monitor every 21 days Sacral ulcer, resolved - Continue frequent turning, protective ointment, and skin checks Coronary artery disease, chronic- LAD and RCA occlusion found at time of cardiac arrest in 05/2015 - s/p cardiac stents on 06/13/15 - ASA 81mg via PEG daily - Coreg 3.125mg via PEG BID - Rosuvastatin 2.5mg via PEG QHS Lower extremity edema, chronic, resolved - SCDs in place - B/l pressure ulcer boots PEG tube malfunction- replaced by IR 04/02/18 - GI consult - IR consult - Senior Qa Engineer consult - Hold feeding from 10pm-6am, placed into nursing communication Code status: full code VTE ppx: Lovenox 40mg SC daily, SCDs and offloading boots GI ppx: Pepcid 20 mg via PEG daily IVF: not indicated, PEG tube feeds <Jeison Moore - Last Filed: 06/22/18 20:09> Objective - Vital Signs/Intake and Output Vital Signs (last 24 hours): Temp Pulse Resp BP Pulse Ox 99.3 F 71 20 115/75 98 06/22/18 16:27 06/22/18 16:27 06/22/18 16:27 06/22/18 16:27 06/22/18 16:27 Intake and Output: 06/22/18 06/23/18 18:59 06:59 Intake Total 400 Output Total 500 Balance -100 - Medications Medications: Current Medications Acetylcysteine (Acetylcysteine 20%) 4 ml INH RQ4 [facility] Last Admin: 06/22/18 20:04 Dose: Not Given Albuterol/Ipratropium (Duoneb 3 Mg/0.5 Mg (3 Ml) Ud) 3 ml INH RQ4 [facility] Last Admin: 06/22/18 20:04 Dose: 3 ml Aspirin (Aspirin Chewable) 81 mg PEG DAILY [facility] Last Admin: 06/22/18 10:07 Dose: 81 mg Bethanechol Chloride (Urecholine) 50 mg PEG BID [facility] Last Admin: 06/22/18 17:20 Dose: 50 mg Carvedilol (Coreg) 3.125 mg PEG BID [facility] Last Admin: 06/22/18 17:24 Dose: 3.125 mg Enoxaparin Sodium (Lovenox) 40 mg SC DAILY [facility] Last Admin: 06/22/18 10:08 Dose: 40 mg Famotidine (Pepcid) 20 mg PEG DAILY [facility] Last Admin: 06/22/18 10:07 Dose: 20 mg Finasteride (Proscar) 5 mg PEG DAILY [facility] Last Admin: 06/22/18 10:07 Dose: 5 mg Levetiracetam (Keppra) 500 mg PO BID [facility] Last Admin: 06/22/18 17:20 Dose: 500 mg Potassium Chloride (K-Dur 20 Meq Er Tab) 20 meq PO DAILY [facility] Last Admin: 06/22/18 10:07 Dose: 20 meq Rosuvastatin Calcium (Crestor) 5 mg PEG HS [facility] Last Admin: 06/21/18 21:49 Dose: 5 mg Scopolamine (Transderm-Scop) 1 patch TD Q3D [facility] Last Admin: 06/15/18 10:09 Dose: 1 patch Tamsulosin HCl (Flomax) 0.4 mg PEG DAILY [facility] Last Admin: 06/22/18 10:07 Dose: 0.4 mg - Labs Labs: 06/14/18 11:22 06/14/18 11:22 PT 10.6 SECONDS (9.7-12.2) 11/24/15 14:10 INR 1.0 11/24/15 14:10 APTT 25 SECONDS (21-34) 11/24/15 14:10 Attending/Attestation - Attestation I have personally seen and examined this patient.: Yes I have fully participated in the care of the patient.: Yes I have reviewed all pertinent clinical information, including history, physical exam and plan: Yes Notes (Text): No changes,lying comfortable d/w resident continue current care
[2018-06-22] MEDS: Potassium Chloride 20 mEq ER Tab PO SCH (10:07)
[2018-06-22] MEDS: levETIRAcetam 100 mg/ml (5ml) Oral Syringe PO SCH ×2 (10:08→17:20)
[2018-06-22] MEDS: Enoxaparin 40 mg Syringe SC SCH (10:08)
[2018-06-23] MEDS: Acetylcysteine 20% Inhal Soln (4ml) INH SCH ×6 (01:07→19:10)
[2018-06-23] MEDS: Albuterol-Ipratrop 3 mg / 0.5 (3 ml) UD INH SCH ×6 (01:08→19:10)
[2018-06-23] MEDS: Potassium Chloride 20 mEq ER Tab PO SCH ×2 (08:47→09:44)
[2018-06-23] MEDS: levETIRAcetam 100 mg/ml (5ml) Oral Syringe PO SCH ×3 (08:47→17:50)
[2018-06-23] MEDS: Enoxaparin 40 mg Syringe SC SCH ×2 (08:47→09:43)
[2018-06-24] MEDS: Acetylcysteine 20% Inhal Soln (4ml) INH SCH ×6 (00:38→20:42)
[2018-06-24] MEDS: Albuterol-Ipratrop 3 mg / 0.5 (3 ml) UD INH SCH ×6 (00:38→20:43)
--- NOTE | 2018-06-24 05:50 | CP.PCM.PN ---
Subjective - Date & Time of Evaluation Date of Evaluation: 06/24/18 Time of Evaluation: 08:20 - Subjective Subjective: PGY-1 Mona Adams D.O. Medicine progress note for Dr. Briceno service: Patient was seen and examined today at bedside in no acute distress. Nurse reports no overnight event. [place] cath is in place. Gastric tube functioning; no evidence of infexction. Trach in place and functioning; no evidence of infection. Nursing reports increased secretion, which they are suctioning. SCDs and bilateral pressure ulcer boots are on LEs. No sacral ulcer visualized; barrier cream in place. Patient had anoxic brain injury in 2014 and is nonverbal; unable to obtain ROS. Objective - Vital Signs/Intake and Output Vital Signs (last 24 hours): Temp Pulse Resp BP Pulse Ox 98.2 F 76 20 104/71 98 06/23/18 23:39 06/23/18 23:39 06/23/18 23:39 06/23/18 23:39 06/23/18 23:39 Intake and Output: 06/23/18 06/24/18 18:59 06:59 Intake Total 850 Output Total 300 750 Balance -300 100 - Medications Medications: Current Medications Acetylcysteine (Acetylcysteine 20%) 4 ml INH RQ4 [facility] Last Admin: 06/24/18 04:23 Dose: 4 ml Albuterol/Ipratropium (Duoneb 3 Mg/0.5 Mg (3 Ml) Ud) 3 ml INH RQ4 [facility] Last Admin: 06/24/18 04:23 Dose: 3 ml Aspirin (Aspirin Chewable) 81 mg PEG DAILY [facility] Last Admin: 06/23/18 09:44 Dose: Not Given Bethanechol Chloride (Urecholine) 50 mg PEG BID [facility] Last Admin: 06/23/18 17:50 Dose: 50 mg Carvedilol (Coreg) 3.125 mg PEG BID [facility] Last Admin: 06/23/18 17:53 Dose: 3.125 mg Enoxaparin Sodium (Lovenox) 40 mg SC DAILY [facility] Last Admin: 06/23/18 09:43 Dose: Not Given Famotidine (Pepcid) 20 mg PEG DAILY [facility] Last Admin: 06/23/18 09:44 Dose: Not Given Finasteride (Proscar) 5 mg PEG DAILY [facility] Last Admin: 06/23/18 09:45 Dose: Not Given Levetiracetam (Keppra) 500 mg PO BID [facility] Last Admin: 06/23/18 17:50 Dose: 500 mg Potassium Chloride (K-Dur 20 Meq Er Tab) 20 meq PO DAILY [facility] Last Admin: 06/23/18 09:44 Dose: Not Given Rosuvastatin Calcium (Crestor) 5 mg PEG HS [facility] Last Admin: 06/23/18 21:36 Dose: 5 mg Scopolamine (Transderm-Scop) 1 patch TD Q3D [facility] Last Admin: 06/23/18 21:59 Dose: 1 patch Tamsulosin HCl (Flomax) 0.4 mg PEG DAILY [facility] Last Admin: 06/23/18 09:44 Dose: Not Given - Labs Labs: 06/14/18 11:22 06/14/18 11:22 PT 10.6 SECONDS (9.7-12.2) 11/24/15 14:10 INR 1.0 11/24/15 14:10 APTT 25 SECONDS (21-34) 11/24/15 14:10 Assessment and Plan - Assessment and Plan (Free Text) Assessment: Patient is a 67 yo Arabic male who suffered an anoxic brain injury after a cardiac arrest in 2014. At the time, he was found to have an intracranial hemorrhage and occlusion of the RCA and LAD. He is now nonverbal and only responds to painful stimuli. Patients family is uncooperative with placement of patient- originally wanted return to [place]. Plan: Anoxic encephalopathy, chronic, stable- s/p cardiac arrest in 05/2015 - PEG tube 45cc/hr on tube feedings - Keppra 500mg bid Respiratory failure, chronic, stable - RT consult - Trach in place- daily monitoring for secretions - Aggressive suctioning multiple times a day per respiratory therapist if secretions are thickened - Scopolamine 1 patch TD Q3D [facility] - Duoneb 3ml INH RQ6H - Mucomyst 4ml INH RQ6H Urinary tract infection, recurrent, resolved - ID consult: Dr. Armstrong - Afebrile, no leukocytosis - Off IV abx since 08/05/17 - [place] condom catheter and Bladder scan PRN to prevent urinary retention Urinary retention, chronic, stable - Tamsulosin 0.4mg daily - Finasteride 5 mg daily - Bethanechol chloride 50mg tid - Bladder scan up to 3x a week prn to monitor residual urine Hypokalemia, chronic - Most recent K 3.3 on 06/14/18 - KCl 20 mEq daily - Monitor every 21 days Sacral ulcer, resolved - Continue frequent turning, protective ointment, and skin checks Coronary artery disease, chronic- LAD and RCA occlusion found at time of cardiac arrest in 05/2015 - s/p cardiac stents on 06/13/15 - ASA 81mg via PEG daily - Coreg 3.125mg via PEG BID - Rosuvastatin 2.5mg via PEG QHS Lower extremity edema, chronic, resolved - SCDs in place - B/l pressure ulcer boots PEG tube malfunction- replaced by IR 04/02/18 - GI consult - IR consult - Mill Laborer consult - Hold feeding from 10pm-6am, placed into nursing communication Code status: full code VTE ppx: Lovenox 40mg SC daily, SCDs and offloading boots GI ppx: Pepcid 20 mg via PEG daily IVF: not indicated, PEG tube feeds
[2018-06-24] MEDS: levETIRAcetam 100 mg/ml (5ml) Oral Syringe PO SCH ×2 (09:53→18:11)
[2018-06-24] MEDS: Potassium Chloride 20 mEq ER Tab PO SCH (09:59)
[2018-06-24] MEDS: Enoxaparin 40 mg Syringe SC SCH (10:00)
[2018-06-25] MEDS: Acetylcysteine 20% Inhal Soln (4ml) INH SCH ×6 (00:02→23:51)
[2018-06-25] MEDS: Albuterol-Ipratrop 3 mg / 0.5 (3 ml) UD INH SCH ×4 (00:02→11:54)
[2018-06-25] MEDS: levETIRAcetam 100 mg/ml (5ml) Oral Syringe PO SCH ×2 (11:15→17:03)
[2018-06-25] MEDS: Enoxaparin 40 mg Syringe SC SCH (11:15)
[2018-06-25] MEDS: Potassium Chloride 20 mEq ER Tab PO SCH (11:19)
[2018-06-26] MEDS: Acetylcysteine 20% Inhal Soln (4ml) INH SCH ×5 (03:28→19:21)
[2018-06-26] MEDS: Albuterol-Ipratrop 3 mg / 0.5 (3 ml) UD INH SCH ×4 (08:30→19:22)
[2018-06-26] MEDS: Potassium Chloride 20 mEq ER Tab PO SCH (09:04)
[2018-06-26] MEDS: Enoxaparin 40 mg Syringe SC SCH (09:05)
[2018-06-26] MEDS: levETIRAcetam 100 mg/ml (5ml) Oral Syringe PO SCH ×2 (09:06→17:22)
[2018-06-27] MEDS: Acetylcysteine 20% Inhal Soln (4ml) INH SCH ×6 (00:49→21:16)
[2018-06-27] MEDS: Albuterol-Ipratrop 3 mg / 0.5 (3 ml) UD INH SCH ×6 (00:50→21:16)
[2018-06-27] MEDS: Enoxaparin 40 mg Syringe SC SCH (09:10)
[2018-06-27] MEDS: levETIRAcetam 100 mg/ml (5ml) Oral Syringe PO SCH ×2 (09:11→18:31)
[2018-06-27] MEDS: Potassium Chloride 20 mEq ER Tab PO SCH (09:11)
[2018-06-28] MEDS: Acetylcysteine 20% Inhal Soln (4ml) INH SCH ×6 (00:04→19:44)
[2018-06-28] MEDS: Albuterol-Ipratrop 3 mg / 0.5 (3 ml) UD INH SCH ×6 (00:04→19:44)
[2018-06-28] MEDS: Potassium Chloride 20 mEq ER Tab PO SCH (10:26)
[2018-06-28] MEDS: Enoxaparin 40 mg Syringe SC SCH (10:26)
[2018-06-28] MEDS: levETIRAcetam 100 mg/ml (5ml) Oral Syringe PO SCH ×4 (11:17→17:18)
[2018-06-28 13:31] LABS: ALB/GLOB RATIO 0.9 (1.0-2.1); ALBUMIN 3.8 g/dL (3.5-5.0); ALT/SGPT 30 U/L (21-72); AST/SGOT 18 U/L (17-59); BLOOD UREA NITROGEN 13 mg/dL (9-20); GFR NON-AFRICAN AMERICAN > 60
[2018-06-29] MEDS: Albuterol-Ipratrop 3 mg / 0.5 (3 ml) UD INH SCH ×6 (00:07→20:15)
[2018-06-29] MEDS: Acetylcysteine 20% Inhal Soln (4ml) INH SCH ×6 (00:07→20:15)
--- NOTE | 2018-06-29 06:15 | CP.PCM.PN ---
Subjective - Date & Time of Evaluation Date of Evaluation: 06/29/18 Time of Evaluation: 08:30 - Subjective Subjective: PGY-1 Mona Adams D.O. Medicine progress note for Dr. Briceno service: Patient was seen and examined today at bedside in no acute distress. Nurse reports no overnight event. [place] cath is in place. Gastric tube functioning; no evidence of infection. Trach in place and functioning; no evidence of infection. Instructed nurse to continue with suctioning of mouth. SCDs and bilateral pressure ulcer boots are on LEs. No sacral ulcer visualized; barrier cream in place. Patient had anoxic brain injury in 2014 and is nonverbal; unable to obtain ROS. Potassium was checked yesterday- 3.7, Has been on KCl- will discontinue and recheck on Thursday 07/05. Objective - Vital Signs/Intake and Output Vital Signs (last 24 hours): Temp Pulse Resp BP Pulse Ox 98.3 F 79 20 105/70 100 06/28/18 23:35 06/28/18 23:35 06/28/18 23:35 06/28/18 23:35 06/28/18 23:35 Intake and Output: 06/28/18 06/29/18 18:59 06:59 Intake Total 700 900 Output Total 400 100 Balance 300 800 - Medications Medications: Current Medications Acetylcysteine (Acetylcysteine 20%) 4 ml INH RQ4 [facility] Last Admin: 06/29/18 03:48 Dose: 4 ml Albuterol/Ipratropium (Duoneb 3 Mg/0.5 Mg (3 Ml) Ud) 3 ml INH RQ4 [facility] Last Admin: 06/29/18 03:47 Dose: 3 ml Aspirin (Aspirin Chewable) 81 mg PEG DAILY [facility] Last Admin: 06/28/18 10:26 Dose: 81 mg Bethanechol Chloride (Urecholine) 50 mg PEG BID [facility] Last Admin: 06/28/18 17:16 Dose: 50 mg Carvedilol (Coreg) 3.125 mg PEG BID [facility] Last Admin: 06/28/18 17:16 Dose: 3.125 mg Enoxaparin Sodium (Lovenox) 40 mg SC DAILY [facility] Last Admin: 06/28/18 10:26 Dose: 40 mg Famotidine (Pepcid) 20 mg PEG DAILY [facility] Last Admin: 06/28/18 10:26 Dose: 20 mg Finasteride (Proscar) 5 mg PEG DAILY [facility] Last Admin: 06/28/18 10:26 Dose: 5 mg Levetiracetam (Keppra) 500 mg PO BID [facility] Last Admin: 06/28/18 17:18 Dose: 500 mg Rosuvastatin Calcium (Crestor) 5 mg PEG HS [facility] Last Admin: 06/28/18 21:30 Dose: 5 mg Scopolamine (Transderm-Scop) 1 patch TD Q3D [facility] Last Admin: 06/26/18 09:04 Dose: 1 patch Tamsulosin HCl (Flomax) 0.4 mg PEG DAILY [facility] Last Admin: 06/28/18 10:26 Dose: 0.4 mg - Labs Labs: 06/14/18 11:22 06/28/18 13:05 PT 10.6 SECONDS (9.7-12.2) 11/24/15 14:10 INR 1.0 11/24/15 14:10 APTT 25 SECONDS (21-34) 11/24/15 14:10 - Constitutional Appears: No Acute Distress, Younger Than Stated Age, Chronically Ill, Other ( decerebrate posturing) - Head Exam Head Exam: NORMAL INSPECTION - Eye Exam Pupil Exam: Fixed - ENT Exam ENT Exam: Mucous Membranes Moist Additional comments: poor dental hygiene, copious oral secretions - Neck Exam Neck Exam: Normal Inspection - Respiratory Exam Respiratory Exam: Clear to Ausculation Bilateral, Rhonchi (in mainstem bronchi) , NORMAL BREATHING PATTERN Additional comments: trach in place - Cardiovascular Exam Cardiovascular Exam: REGULAR RHYTHM, +S1, +S2 - GI/Abdominal Exam GI & Abdominal Exam: Soft Additional comments: PEG tube in place - Rectal Exam Rectal Exam: Deferred - Exam Additional comments: condom cath in place - Extremities Exam Additional comments: SCDs and b/l pressure ulcer boots - Back Exam Additional comments: no pressure ulcers, barrier cream in place - Neurological Exam Additional comments: anoxic brain injury- nonverbal, responsive to painful stimuli only - Skin Skin Exam: Dry, Intact, Pallor (baseline), Warm Assessment and Plan - Assessment and Plan (Free Text) Assessment: Patient is a 67 yo Czech male who suffered an anoxic brain injury after a cardiac arrest in 2014. At the time, he was found to have an intracranial hemorrhage and occlusion of the RCA and LAD. He is now nonverbal and only responds to painful stimuli. Patients family is uncooperative with placement of patient- originally wanted return to [place]. Plan: Anoxic encephalopathy, chronic, stable- s/p cardiac arrest in 05/2015 - PEG tube 45cc/hr on tube feedings - Keppra 500mg bid Respiratory failure, chronic, stable - RT consult - Trach in place- daily monitoring for secretions - Aggressive suctioning multiple times a day per respiratory therapist if secretions are thickened - Scopolamine 1 patch TD Q3D [facility] - Duoneb 3ml INH RQ6H - Mucomyst 4ml INH RQ6H Urinary tract infection, recurrent, resolved - ID consult: Dr. Armstrong - Afebrile, no leukocytosis - Off IV abx since 08/05/17 - [place] condom catheter and Bladder scan PRN to prevent urinary retention Urinary retention, chronic, stable - Tamsulosin 0.4mg daily - Finasteride 5 mg daily - Bethanechol chloride 50mg tid - Bladder scan up to 3x a week prn to monitor residual urine Hypokalemia, chronic - Most recent K 3.7 on 06/28/18 - Discontinue KCl 20 mEq on 06/28/18 - Recheck K on 07/05, if wnl, continue to monitor q21 days. If low, replete and monitor more often Sacral ulcer, resolved - Continue frequent turning, protective ointment, and skin checks Coronary artery disease, chronic- LAD and RCA occlusion found at time of cardiac arrest in 05/2015 - s/p cardiac stents on 06/13/15 - ASA 81mg via PEG daily - Coreg 3.125mg via PEG BID - Rosuvastatin 2.5mg via PEG QHS Lower extremity edema, chronic, resolved - SCDs in place - B/l pressure ulcer boots PEG tube malfunction- replaced by IR 04/02/18 - GI consult - IR consult - Electro Mechanical Assembler consult - Hold feeding from 10pm-6am, placed into nursing communication Code status: full code VTE ppx: Lovenox 40mg SC daily, SCDs and offloading boots GI ppx: Pepcid 20 mg via PEG daily IVF: not indicated, PEG tube feeds
[2018-06-29] MEDS: Enoxaparin 40 mg Syringe SC SCH (10:34)
[2018-06-29] MEDS: levETIRAcetam 100 mg/ml (5ml) Oral Syringe PO SCH ×2 (10:53→17:30)
[2018-06-30] MEDS: Acetylcysteine 20% Inhal Soln (4ml) INH SCH ×7 (00:14→23:45)
[2018-06-30] MEDS: Albuterol-Ipratrop 3 mg / 0.5 (3 ml) UD INH SCH ×7 (00:14→23:45)
[2018-06-30] MEDS: Enoxaparin 40 mg Syringe SC SCH (10:14)
[2018-06-30] MEDS: levETIRAcetam 100 mg/ml (5ml) Oral Syringe PO SCH ×2 (10:14→17:50)
[2018-07-01] MEDS: Albuterol-Ipratrop 3 mg / 0.5 (3 ml) UD INH SCH ×3 (03:19→20:35)
[2018-07-01] MEDS: Acetylcysteine 20% Inhal Soln (4ml) INH SCH ×5 (03:19→19:32)
--- NOTE | 2018-07-01 06:04 | CP.PCM.PN ---
<Mona Adams - Last Filed: 07/01/18 11:16> Subjective - Date & Time of Evaluation Date of Evaluation: 07/01/18 Time of Evaluation: 07:30 - Subjective Subjective: PGY-1 Mona Adams D.O. Medicine progress note for Dr. Amandeep Piedra service: Patient was seen and examined today at bedside in no acute distress. Nurse reports no overnight event. [place] cath is in place. Gastric tube functioning; no evidence of infection. Trach in place and functioning; no evidence of infection. SCDs and bilateral pressure ulcer boots are on LEs. No sacral ulcer visualized; barrier cream in place. Patient had anoxic brain injury in 2014 and is nonverbal, unresponsive at baseline; unable to obtain ROS. Potassium was checked Thursday 06/28 wnl (3.7). Has been on KCl- will discontinue and recheck on Thursday 07/05. Objective - Vital Signs/Intake and Output Vital Signs (last 24 hours): Temp Pulse Resp BP Pulse Ox 98.2 F 81 20 109/72 98 06/30/18 23:34 06/30/18 23:34 06/30/18 23:34 06/30/18 23:34 06/30/18 23:34 Intake and Output: 06/30/18 07/01/18 18:59 06:59 Intake Total 900 900 Output Total 200 900 Balance 700 0 - Medications Medications: Current Medications Acetylcysteine (Acetylcysteine 20%) 4 ml INH RQ4 [facility] Last Admin: 07/01/18 03:19 Dose: 4 ml Albuterol/Ipratropium (Duoneb 3 Mg/0.5 Mg (3 Ml) Ud) 3 ml INH RQ4 [facility] Last Admin: 07/01/18 03:19 Dose: 3 ml Aspirin (Aspirin Chewable) 81 mg PEG DAILY [facility] Last Admin: 06/30/18 10:14 Dose: 81 mg Bethanechol Chloride (Urecholine) 50 mg PEG BID [facility] Last Admin: 06/30/18 17:50 Dose: 50 mg Carvedilol (Coreg) 3.125 mg PEG BID [facility] Last Admin: 06/30/18 17:50 Dose: 3.125 mg Enoxaparin Sodium (Lovenox) 40 mg SC DAILY [facility] Last Admin: 06/30/18 10:14 Dose: 40 mg Famotidine (Pepcid) 20 mg PEG DAILY [facility] Last Admin: 06/30/18 10:14 Dose: 20 mg Finasteride (Proscar) 5 mg PEG DAILY [facility] Last Admin: 06/30/18 10:14 Dose: 5 mg Levetiracetam (Keppra) 500 mg PO BID [facility] Last Admin: 06/30/18 17:50 Dose: 500 mg Rosuvastatin Calcium (Crestor) 5 mg PEG HS [facility] Last Admin: 06/30/18 21:44 Dose: 5 mg Scopolamine (Transderm-Scop) 1 patch TD Q3D [facility] Last Admin: 06/29/18 10:36 Dose: 1 patch Tamsulosin HCl (Flomax) 0.4 mg PEG DAILY [facility] Last Admin: 06/30/18 10:14 Dose: 0.4 mg - Labs Labs: 06/14/18 11:22 06/28/18 13:05 PT 10.6 SECONDS (9.7-12.2) 11/24/15 14:10 INR 1.0 11/24/15 14:10 APTT 25 SECONDS (21-34) 11/24/15 14:10 - Constitutional Appears: No Acute Distress, Younger Than Stated Age, Chronically Ill - Head Exam Head Exam: ATRAUMATIC, NORMAL INSPECTION, NORMOCEPHALIC - Eye Exam Pupil Exam: Fixed Additional comments: eyes closed at baseline - ENT Exam ENT Exam: Mucous Membranes Moist - Neck Exam Additional comments: trach - Respiratory Exam Respiratory Exam: Rhonchi (mainstem bronchi), NORMAL BREATHING PATTERN - Cardiovascular Exam Cardiovascular Exam: REGULAR RHYTHM, +S1, +S2 - GI/Abdominal Exam GI & Abdominal Exam: Soft Additional comments: PEG - Rectal Exam Rectal Exam: Deferred - Exam Exam: NORMAL INSPECTION Additional comments: condom cath - Extremities Exam Extremities Exam: Normal Capillary Refill. absent: Pedal Edema - Back Exam Back Exam: NORMAL INSPECTION Additional comments: no pressure ulcer - Neurological Exam Neurological Exam: absent: Alert (baseline) - Psychiatric Exam Additional comments: N/A - Skin Skin Exam: Dry, Intact, Normal Color, Pallor, Warm Assessment and Plan - Assessment and Plan (Free Text) Assessment: Patient is a 67 yo Montene[place] male who suffered an anoxic brain injury after a cardiac arrest in 2014. At the time, he was found to have an intracranial hemorrhage and occlusion of the RCA and LAD. He is now nonverbal and only responds to painful stimuli. Patients family is uncooperative with placement of patient- originally wanted return to [place]. Plan: Anoxic encephalopathy, chronic, stable- s/p cardiac arrest in 05/2015 - PEG tube 45cc/hr on tube feedings - Keppra 500mg bid Respiratory failure, chronic, stable - RT consult - Trach in place- daily monitoring for secretions - Aggressive suctioning multiple times a day per respiratory therapist if secretions are thickened - Scopolamine 1 patch TD Q3D JOO - Duoneb 3ml INH RQ6H - Mucomyst 4ml INH RQ6H Urinary tract infection, recurrent, resolved - ID consult: Dr. Armstrong - Afebrile, no leukocytosis - Off IV abx since 08/05/17 - [place] condom catheter and Bladder scan PRN to prevent urinary retention Urinary retention, chronic, stable - Tamsulosin 0.4mg daily - Finasteride 5 mg daily - Bethanechol chloride 50mg tid - Bladder scan up to 3x a week prn to monitor residual urine Hypokalemia, chronic - Most recent K 3.7 on 06/28/18 - Discontinue KCl 20 mEq on 06/28/18 - Recheck K on 07/05, if wnl, continue to monitor q21 days. If low, replete and monitor more often Sacral ulcer, resolved - Continue frequent turning, protective ointment, and skin checks Coronary artery disease, chronic- LAD and RCA occlusion found at time of cardiac arrest in 05/2015 - s/p cardiac stents on 06/13/15 - ASA 81mg via PEG daily - Coreg 3.125mg via PEG BID - Rosuvastatin 2.5mg via PEG QHS Lower extremity edema, chronic, resolved - SCDs in place - B/l pressure ulcer boots PEG tube malfunction- replaced by IR 04/02/18 - GI consult - IR consult - [employer] consult - Hold feeding from 10pm-6am, placed into nursing communication Code status: full code VTE ppx: Lovenox 40mg SC daily, SCDs and offloading boots GI ppx: Pepcid 20 mg via PEG daily IVF: not indicated, PEG tube feeds <Chavis,Peter H - Last Filed: 07/01/18 13:46> Objective - Vital Signs/Intake and Output Vital Signs (last 24 hours): Temp Pulse Resp BP Pulse Ox 98.3 F 91 H 20 113/77 96 08/09/18 07:11 07/01/18 07:11 07/01/18 07:11 07/01/18 07:11 07/01/18 07:11 Intake and Output: 07/01/18 07/01/18 06:59 18:59 Intake Total 1800 Output Total 1800 Balance 0 - Medications Medications: Current Medications Acetylcysteine (Acetylcysteine 20%) 4 ml INH RQ4 [facility] Last Admin: 07/01/18 13:19 Dose: Not Given Aspirin (Aspirin Chewable) 81 mg PEG DAILY [facility] Last Admin: 07/01/18 09:54 Dose: 81 mg Bethanechol Chloride (Urecholine) 50 mg PEG BID [facility] Last Admin: 07/01/18 09:55 Dose: 50 mg Carvedilol (Coreg) 3.125 mg PEG BID [facility] Last Admin: 07/01/18 09:54 Dose: 3.125 mg Enoxaparin Sodium (Lovenox) 40 mg SC DAILY [facility] Last Admin: 07/01/18 09:55 Dose: 40 mg Famotidine (Pepcid) 20 mg PEG DAILY [facility] Last Admin: 07/01/18 09:54 Dose: 20 mg Finasteride (Proscar) 5 mg PEG DAILY [facility] Last Admin: 07/01/18 09:55 Dose: 5 mg Levetiracetam (Keppra) 500 mg PO BID [facility] Last Admin: 07/01/18 09:55 Dose: 500 mg Rosuvastatin Calcium (Crestor) 5 mg PEG HS [facility] Last Admin: 06/30/18 21:44 Dose: 5 mg Scopolamine (Transderm-Scop) 1 patch TD Q3D [facility] Last Admin: 06/29/18 10:36 Dose: 1 patch Tamsulosin HCl (Flomax) 0.4 mg PEG DAILY [facility] Last Admin: 07/01/18 09:54 Dose: 0.4 mg - Labs Labs: 06/14/18 11:22 06/28/18 13:05 PT 10.6 SECONDS (9.7-12.2) 11/24/15 14:10 INR 1.0 11/24/15 14:10 APTT 25 SECONDS (21-34) 11/24/15 14:10 Assessment and Plan (1) Prophylactic measure Status: Acute (2) Anoxic encephalopathy Status: Chronic (3) STEMI (ST elevation myocardial infarction) Status: Acute (4) Cardiac arrest Status: Acute (5) Seizures Status: Acute (6) Respiratory failure Status: Chronic Attending/Attestation - Attestation I have personally seen and examined this patient.: Yes I have fully participated in the care of the patient.: Yes I have reviewed all pertinent clinical information, including history, physical exam and plan: Yes Notes (Text): 07/01/18 13:45 Medical attending: currently situation is not changed from before. Amandeep Chavis
[2018-07-01] MEDS: levETIRAcetam 100 mg/ml (5ml) Oral Syringe PO SCH ×2 (09:55→17:22)
[2018-07-01] MEDS: Enoxaparin 40 mg Syringe SC SCH (09:55)
[2018-07-02] MEDS: Acetylcysteine 20% Inhal Soln (4ml) INH SCH ×6 (00:37→20:09)
[2018-07-02] MEDS: Albuterol-Ipratrop 3 mg / 0.5 (3 ml) UD INH SCH ×6 (00:37→20:09)
[2018-07-02] MEDS: levETIRAcetam 100 mg/ml (5ml) Oral Syringe PO SCH ×2 (10:10→17:50)
[2018-07-02] MEDS: Enoxaparin 40 mg Syringe SC SCH (10:11)
[2018-07-03] MEDS: Acetylcysteine 20% Inhal Soln (4ml) INH SCH ×5 (00:33→20:33)
[2018-07-03] MEDS: Albuterol-Ipratrop 3 mg / 0.5 (3 ml) UD INH SCH ×5 (00:34→20:33)
[2018-07-03] MEDS: Enoxaparin 40 mg Syringe SC SCH (10:53)
[2018-07-03] MEDS: levETIRAcetam 100 mg/ml (5ml) Oral Syringe PO SCH ×2 (10:54→17:04)
[2018-07-04] MEDS: Acetylcysteine 20% Inhal Soln (4ml) INH SCH ×7 (00:02→23:53)
[2018-07-04] MEDS: Albuterol-Ipratrop 3 mg / 0.5 (3 ml) UD INH SCH ×7 (00:03→23:53)
[2018-07-04] MEDS: Enoxaparin 40 mg Syringe SC SCH (10:48)
[2018-07-04] MEDS: levETIRAcetam 100 mg/ml (5ml) Oral Syringe PO SCH ×2 (10:48→17:37)
[2018-07-05] MEDS: Acetylcysteine 20% Inhal Soln (4ml) INH SCH ×6 (03:27→23:41)
[2018-07-05] MEDS: Albuterol-Ipratrop 3 mg / 0.5 (3 ml) UD INH SCH ×6 (03:28→23:41)
[2018-07-05 08:00] LABS: BASO # 0.1 K/uL (0.0-0.2); BASO % 0.8 % (0.0-2.0); EOS # 0.2 K/uL (0.0-0.7); EOS % 2.7 % (0.0-4.0); LYMPH # 2.5 K/uL (1.0-4.3); MEAN CELL VOLUME 88.2 fL (80.0-94.0); MEAN CORPUSCULAR HEMOGLOBIN 29.2 pg (27.0-31.0); MEAN CORPUSCULAR HGB CONC 33.1 g/dL (33.0-37.0); MEAN PLATELET VOLUME 8.9 fL (7.2-11.7); MONO # 0.7 K/uL (0.0-0.8); MONO % 7.8 % (0.0-10.0); NEUT # 5.6 K/uL (1.8-7.0); NEUT % 61.7 % (50.0-75.0); RBC 4.12 Mil/uL (4.40-5.90); RED CELL DISTRIBUTION WIDTH 14.9 % (11.5-14.5); WHITE BLOOD COUNT 9.1 K/uL (4.8-10.8)
[2018-07-05 08:10] LABS: ALB/GLOB RATIO 0.8 (1.0-2.1); ALBUMIN 3.7 g/dL (3.5-5.0); ALT/SGPT 30 U/L (21-72); AST/SGOT 21 U/L (17-59); BLOOD UREA NITROGEN 11 mg/dL (9-20); CALCIUM 8.9 mg/dl (8.6-10.4); GFR NON-AFRICAN AMERICAN > 60
[2018-07-05] MEDS: levETIRAcetam 100 mg/ml (5ml) Oral Syringe PO SCH ×2 (10:37→17:44)
[2018-07-06] MEDS: Acetylcysteine 20% Inhal Soln (4ml) INH SCH ×5 (03:12→20:08)
[2018-07-06] MEDS: Albuterol-Ipratrop 3 mg / 0.5 (3 ml) UD INH SCH ×5 (03:13→20:08)
--- NOTE | 2018-07-06 06:08 | CP.PCM.PN ---
Subjective - Date & Time of Evaluation Date of Evaluation: 07/06/18 Time of Evaluation: 09:00 - Subjective Subjective: PGY-1 Mona Adams D.O. Medicine progress note for Dr. Briceno service: Patient was seen and examined today at bedside in no acute distress. Nurse reports no overnight event. [place] cath is in place. Gastric tube functioning; no evidence of infection. Trach in place and functioning; no evidence of infection. SCDs and bilateral pressure ulcer boots are on LEs. No sacral ulcer visualized; barrier cream in place. Patient had anoxic brain injury in 2014 and is nonverbal, unresponsive at baseline; unable to obtain ROS. Labs done yesterday (07/05). Potassium has normalized (3.7). Will not resume supplemental K at this time. Continue to monitor CBC and CMP every 21 days. Objective - Vital Signs/Intake and Output Vital Signs (last 24 hours): Temp Pulse Resp BP Pulse Ox 98.1 F 92 H 20 102/68 99 07/05/18 23:45 07/05/18 23:45 07/05/18 23:45 07/05/18 23:45 07/05/18 23:45 Intake and Output: 07/05/18 07/06/18 18:59 06:59 Intake Total 800 920 Output Total 550 400 Balance 250 520 - Medications Medications: Current Medications Acetylcysteine (Acetylcysteine 20%) 4 ml INH RQ4 [facility] Last Admin: 07/06/18 03:12 Dose: 4 ml Albuterol/Ipratropium (Duoneb 3 Mg/0.5 Mg (3 Ml) Ud) 3 ml INH RQ4 [facility] Last Admin: 07/06/18 03:13 Dose: 3 ml Aspirin (Aspirin Chewable) 81 mg PEG DAILY [facility] Last Admin: 07/05/18 10:37 Dose: 81 mg Bethanechol Chloride (Urecholine) 50 mg PEG BID [facility] Last Admin: 07/05/18 17:44 Dose: 50 mg Carvedilol (Coreg) 3.125 mg PEG BID [facility] Last Admin: 07/05/18 17:46 Dose: Not Given Famotidine (Pepcid) 20 mg PEG DAILY [facility] Last Admin: 07/05/18 10:37 Dose: 20 mg Finasteride (Proscar) 5 mg PEG DAILY [facility] Last Admin: 07/05/18 10:37 Dose: 5 mg Levetiracetam (Keppra) 500 mg PO BID [facility] Last Admin: 07/05/18 17:44 Dose: 500 mg Rosuvastatin Calcium (Crestor) 5 mg PEG HS [facility] Last Admin: 07/05/18 21:42 Dose: 5 mg Scopolamine (Transderm-Scop) 1 patch TD Q3D [facility] Last Admin: 07/05/18 08:37 Dose: 1 patch Tamsulosin HCl (Flomax) 0.4 mg PEG DAILY [facility] Last Admin: 07/05/18 10:37 Dose: 0.4 mg - Labs Labs: 07/05/18 07:18 07/05/18 07:18 PT 10.6 SECONDS (9.7-12.2) 11/24/15 14:10 INR 1.0 11/24/15 14:10 APTT 25 SECONDS (21-34) 11/24/15 14:10 - Constitutional Appears: Non-toxic, No Acute Distress, Chronically Ill - Head Exam Head Exam: ATRAUMATIC, NORMAL INSPECTION, NORMOCEPHALIC - Eye Exam Additional comments: eyes closed at baseline - ENT Exam ENT Exam: Mucous Membranes Moist - Neck Exam Neck Exam: Normal Inspection Additional comments: trach in place - Respiratory Exam Respiratory Exam: Rhonchi (mainstem bronchi), NORMAL BREATHING PATTERN. absent : Respiratory Distress - Cardiovascular Exam Cardiovascular Exam: REGULAR RHYTHM, +S1, +S2. absent: Murmur - GI/Abdominal Exam GI & Abdominal Exam: Soft, Normal Bowel Sounds Additional comments: PEG tube in place - Rectal Exam Rectal Exam: Deferred - Exam External exam: NORMAL EXTERNAL EXAM Additional comments: [place] condom cath in place - Extremities Exam Extremities Exam: Normal Capillary Refill, Normal Inspection. absent: Pedal Edema - Back Exam Back Exam: NORMAL INSPECTION Additional comments: no sacral ulcer observed - Neurological Exam Neurological Exam: absent: Alert, Awake Additional comments: unresponsive at baseline - Psychiatric Exam Additional comments: N/A - Skin Skin Exam: Dry, Intact, Normal Color, Warm Assessment and Plan - Assessment and Plan (Free Text) Assessment: Patient is a 67 yo Mongolian male who suffered an anoxic brain injury after a cardiac arrest in 2014. At the time, he was found to have an intracranial hemorrhage and occlusion of the RCA and LAD. He is now nonverbal and only responds to painful stimuli. Patients family is uncooperative with placement of patient- originally wanted return to [place]. Plan: Anoxic encephalopathy, chronic, stable- s/p cardiac arrest in 05/2015 - PEG tube 45cc/hr on tube feedings - Keppra 500mg bid Respiratory failure, chronic, stable - RT consult - Trach in place- daily monitoring for secretions - Aggressive suctioning multiple times a day per respiratory therapist if secretions are thickened - Scopolamine 1 patch TD Q3D JOO - Duoneb 3ml INH RQ6H - Mucomyst 4ml INH RQ6H Urinary tract infection, recurrent, resolved - ID consult: Dr. Armstrong - Afebrile, no leukocytosis - Off IV abx since 08/05/17 - [place] condom catheter and Bladder scan PRN to prevent urinary retention Urinary retention, chronic, stable - Tamsulosin 0.4mg daily - Finasteride 5 mg daily - Bethanechol chloride 50mg tid - Bladder scan up to 3x a week prn to monitor residual urine Hypokalemia, chronic, resolved - Most recent K 3.7 on 07/05/18 - Replete as needed - Continue to monitor CMP q21 days Sacral ulcer, resolved - Continue frequent turning, protective ointment, and skin checks Coronary artery disease, chronic- LAD and RCA occlusion found at time of cardiac arrest in 05/2015 - s/p cardiac stents on 06/13/15 - ASA 81mg via PEG daily - Coreg 3.125mg via PEG BID - Rosuvastatin 2.5mg via PEG QHS Lower extremity edema, chronic, resolved - SCDs in place - B/l pressure ulcer boots PEG tube malfunction- replaced by IR 04/02/18 - GI consult - IR consult - [employer]rolley Car [employer] consult - Hold feeding from 10pm-6am, placed into nursing communication Code status: full code VTE ppx: Lovenox 40mg SC daily, SCDs and offloading boots GI ppx: Pepcid 20 mg via PEG daily IVF: not indicated, PEG tube feeds
[2018-07-06] MEDS: levETIRAcetam 100 mg/ml (5ml) Oral Syringe PO SCH ×2 (09:56→17:32)
[2018-07-07] MEDS: Acetylcysteine 20% Inhal Soln (4ml) INH SCH ×6 (00:39→20:14)
[2018-07-07] MEDS: levETIRAcetam 100 mg/ml (5ml) Oral Syringe PO SCH ×2 (09:26→17:10)
[2018-07-07] MEDS: Enoxaparin 40 mg Syringe SC SCH (15:09)
[2018-07-07] MEDS: Albuterol-Ipratrop 3 mg / 0.5 (3 ml) UD INH SCH (20:13)
[2018-07-08] MEDS: Acetylcysteine 20% Inhal Soln (4ml) INH SCH ×6 (00:11→20:19)
[2018-07-08] MEDS: Albuterol-Ipratrop 3 mg / 0.5 (3 ml) UD INH SCH ×4 (03:03→20:19)
--- NOTE | 2018-07-08 05:56 | CP.PCM.PN ---
<Mona Adams - Last Filed: 07/08/18 09:42> Subjective - Date & Time of Evaluation Date of Evaluation: 07/08/18 Time of Evaluation: 09:10 - Subjective Subjective: PGY-1 Mona Adams D.O. Medicine progress note for Dr. Amandeep Chavis's service: Patient seen and examined this morning. He is not in acute distress. No overnight events reported. Trach in place and functioning; no evidence of infection. [place] cath in place and functioning. Gastric tube in place and functioning; no evidence of infection. SCDs and pressure ulcer boots are on b/l LEs. Patient turned on side, and no sacral ulcer is visualized. Patient had anoxic brain injury in 2015 and is nonverbal, unresponsive at baseline; unable to obtain ROS. Objective - Vital Signs/Intake and Output Vital Signs (last 24 hours): Temp Pulse Resp BP Pulse Ox 98.5 F 84 20 105/74 98 07/07/18 23:27 07/07/18 23:27 07/07/18 23:27 07/07/18 23:27 07/07/18 23:27 Intake and Output: 07/07/18 07/08/18 18:59 06:59 Intake Total 900 900 Output Total 500 650 Balance 400 250 - Medications Medications: Current Medications Acetylcysteine (Acetylcysteine 20%) 4 ml INH RQ4 [facility] Last Admin: 07/08/18 03:02 Dose: 4 ml Albuterol/Ipratropium (Duoneb 3 Mg/0.5 Mg (3 Ml) Ud) 3 ml INH RQ6 [facility] Last Admin: 07/08/18 03:03 Dose: 3 ml Aspirin (Aspirin Chewable) 81 mg PEG DAILY [facility] Last Admin: 07/07/18 09:26 Dose: 81 mg Bethanechol Chloride (Urecholine) 50 mg PEG BID [facility] Last Admin: 07/07/18 17:10 Dose: 50 mg Carvedilol (Coreg) 3.125 mg PEG BID [facility] Last Admin: 07/07/18 17:13 Dose: 3.125 mg Enoxaparin Sodium (Lovenox) 40 mg SC DAILY [facility] Last Admin: 07/07/18 15:09 Dose: 40 mg Famotidine (Pepcid) 20 mg PEG DAILY [facility] Last Admin: 07/07/18 09:27 Dose: 20 mg Finasteride (Proscar) 5 mg PEG DAILY [facility] Last Admin: 07/07/18 09:27 Dose: 5 mg Levetiracetam (Keppra) 500 mg PO BID [facility] Last Admin: 07/07/18 17:10 Dose: 500 mg Rosuvastatin Calcium (Crestor) 5 mg PEG HS [facility] Last Admin: 07/07/18 22:30 Dose: 5 mg Scopolamine (Transderm-Scop) 1 patch TD Q3D [facility] Last Admin: 07/05/18 08:37 Dose: 1 patch Tamsulosin HCl (Flomax) 0.4 mg PEG DAILY [facility] Last Admin: 07/07/18 09:27 Dose: 0.4 mg - Labs Labs: 07/05/18 07:18 07/05/18 07:18 PT 10.6 SECONDS (9.7-12.2) 11/24/15 14:10 INR 1.0 11/24/15 14:10 APTT 25 SECONDS (21-34) 11/24/15 14:10 - Constitutional Appears: No Acute Distress, Younger Than Stated Age, Chronically Ill - Head Exam Head Exam: ATRAUMATIC, NORMAL INSPECTION, NORMOCEPHALIC - Eye Exam Additional comments: eyes closed at baseline - ENT Exam ENT Exam: Mucous Membranes Moist - Neck Exam Neck Exam: Normal Inspection Additional comments: trach in place - Respiratory Exam Respiratory Exam: Rhonchi (mainstem bronchi), NORMAL BREATHING PATTERN. absent : Respiratory Distress - Cardiovascular Exam Cardiovascular Exam: REGULAR RHYTHM, +S1, +S2. absent: Murmur - GI/Abdominal Exam GI & Abdominal Exam: Normal Bowel Sounds Additional comments: PEG tube in place - Rectal Exam Rectal Exam: Deferred - Exam Exam: NORMAL INSPECTION Additional comments: [place] condom cath in place - Extremities Exam Extremities Exam: Normal Capillary Refill, Normal Inspection. absent: Pedal Edema - Back Exam Back Exam: NORMAL INSPECTION. absent: rash noted Additional comments: no pressure ulcers observed - Neurological Exam Neurological Exam: absent: Alert, Awake Additional comments: unresponsive at baseline 2/2 anoxic brain injury - Psychiatric Exam Additional comments: N/A - Skin Skin Exam: Dry, Intact, Normal Color, Warm Assessment and Plan - Assessment and Plan (Free Text) Assessment: Patient is a 67 yo [place] male who suffered an anoxic brain injury after a cardiac arrest in 2014. At the time, he was found to have an intracranial hemorrhage and occlusion of the RCA and LAD. He is now nonverbal and only responds to painful stimuli. Patients family is uncooperative with placement of patient- originally wanted return to [place]. 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 Salgado) Hypokalemia, chronic, resolved - Most recent K 3.7 on 07/05/18 - Replete as needed - Continue to monitor CMP q21 days Urinary retention, chronic, stable - Tamsulosin 0.4mg daily - Finasteride 5 mg daily - Bethanechol chloride 50mg tid - Bladder scan up to 3x a week PRN to monitor residual urine - Urology consulted (Dr. Oropeza) Coronary artery disease, chronic- LAD and RCA occlusion found at time of cardiac arrest in 05/2015 - s/p cardiac stents on 06/13/15 - ASA 81mg via PEG daily - Coreg 3.125mg via PEG BID - Rosuvastatin 2.5mg via PEG QHS Sacral ulcer, resolved - Continue frequent turning, protective ointment, and daily skin checks - Wound care consulted Urinary tract infection, recurrent, resolved - ID consulted (Drs. Armstrong, Win) - Afebrile, no leukocytosis - Off IV abx since 08/05/17 - [place] condom catheter - Bladder scan PRN to prevent urinary retention Lower extremity edema, resolved - SCDs in place - B/l pressure ulcer boots PEG tube malfunction, resolved- replaced by IR 04/02/18 - GI consulted (Drs. Rose, James, Jeny) - IR consulted (Dr. Schroeder) - Hospital Administrator consulted - Hold feeding from 10pm-6am, placed into nursing communication IVF: not indicated, PEG tube feeds VTE ppx: Lovenox 40mg SC daily, SCDs and offloading boots GI ppx: Pepcid 20 mg via PEG daily Code status: full code <Chavis,Peter H - Last Filed: 07/08/18 11:45> Objective - Vital Signs/Intake and Output Vital Signs (last 24 hours): Temp Pulse Resp BP Pulse Ox 97.6 F 69 20 116/75 100 07/08/18 08:00 07/08/18 08:00 07/08/18 08:00 07/08/18 08:00 07/08/18 08:00 Intake and Output: 07/08/18 07/08/18 06:59 18:59 Intake Total 1800 Output Total 1550 Balance 250 - Medications Medications: Current Medications Acetylcysteine (Acetylcysteine 20%) 4 ml INH RQ4 [facility] Last Admin: 07/08/18 08:10 Dose: 4 ml Albuterol/Ipratropium (Duoneb 3 Mg/0.5 Mg (3 Ml) Ud) 3 ml INH RQ6 [facility] Last Admin: 07/08/18 08:10 Dose: 3 ml Aspirin (Aspirin Chewable) 81 mg PEG DAILY [facility] Last Admin: 07/08/18 09:19 Dose: 81 mg Bethanechol Chloride (Urecholine) 50 mg PEG BID [facility] Last Admin: 07/08/18 09:19 Dose: 50 mg Carvedilol (Coreg) 3.125 mg PEG BID [facility] Last Admin: 07/08/18 10:17 Dose: 3.125 mg Enoxaparin Sodium (Lovenox) 40 mg SC DAILY [facility] Last Admin: 07/08/18 09:19 Dose: 40 mg Famotidine (Pepcid) 20 mg PEG DAILY [facility] Last Admin: 07/08/18 09:19 Dose: 20 mg Finasteride (Proscar) 5 mg PEG DAILY [facility] Last Admin: 07/08/18 09:19 Dose: 5 mg Levetiracetam (Keppra) 500 mg PO BID [facility] Last Admin: 07/08/18 09:19 Dose: 500 mg Rosuvastatin Calcium (Crestor) 5 mg PEG HS [facility] Last Admin: 07/07/18 22:30 Dose: 5 mg Scopolamine (Transderm-Scop) 1 patch TD Q3D [facility] Last Admin: 07/08/18 09:19 Dose: 1 patch Tamsulosin HCl (Flomax) 0.4 mg PEG DAILY [facility] Last Admin: 07/08/18 09:19 Dose: 0.4 mg - Labs Labs: 07/05/18 07:18 07/05/18 07:18 PT 10.6 SECONDS (9.7-12.2) 11/24/15 14:10 INR 1.0 11/24/15 14:10 APTT 25 SECONDS (21-34) 11/24/15 14:10 Assessment and Plan (1) Prophylactic measure Status: Acute (2) Anoxic encephalopathy Status: Chronic (3) STEMI (ST elevation myocardial infarction) Status: Acute (4) Cardiac arrest Status: Acute (5) Seizures Status: Acute (6) Respiratory failure Status: Chronic Attending/Attestation - Attestation I have personally seen and examined this patient.: Yes I have fully participated in the care of the patient.: Yes I have reviewed all pertinent clinical information, including history, physical exam and plan: Yes Notes (Text): 07/08/18 11:44 Medical attending: Patient was seen and examined by me. Agree with the above note by the resident The patient sittuation has not changed from before. Amandeep Chavis
[2018-07-08] MEDS: Enoxaparin 40 mg Syringe SC SCH (09:19)
[2018-07-08] MEDS: levETIRAcetam 100 mg/ml (5ml) Oral Syringe PO SCH ×2 (09:19→18:00)
[2018-07-09] MEDS: Acetylcysteine 20% Inhal Soln (4ml) INH SCH ×6 (00:33→19:40)
[2018-07-09] MEDS: Albuterol-Ipratrop 3 mg / 0.5 (3 ml) UD INH SCH ×4 (03:01→19:41)
[2018-07-09] MEDS: Enoxaparin 40 mg Syringe SC SCH (10:17)
[2018-07-09] MEDS: levETIRAcetam 100 mg/ml (5ml) Oral Syringe PO SCH ×2 (10:17→17:21)
[2018-07-10] MEDS: Acetylcysteine 20% Inhal Soln (4ml) INH SCH ×6 (00:05→20:29)
[2018-07-10] MEDS: Albuterol-Ipratrop 3 mg / 0.5 (3 ml) UD INH SCH ×4 (04:15→20:28)
[2018-07-10] MEDS: Enoxaparin 40 mg Syringe SC SCH (10:13)
[2018-07-10] MEDS: levETIRAcetam 100 mg/ml (5ml) Oral Syringe PO SCH ×2 (10:14→17:48)
[2018-07-11] MEDS: Acetylcysteine 20% Inhal Soln (4ml) INH SCH ×6 (00:20→20:18)
[2018-07-11] MEDS: Albuterol-Ipratrop 3 mg / 0.5 (3 ml) UD INH SCH ×4 (04:17→20:18)
[2018-07-11] MEDS: levETIRAcetam 100 mg/ml (5ml) Oral Syringe PO SCH ×2 (10:28→17:26)
[2018-07-11] MEDS: Enoxaparin 40 mg Syringe SC SCH (10:28)
[2018-07-12] MEDS: Acetylcysteine 20% Inhal Soln (4ml) INH SCH ×5 (00:14→19:41)
[2018-07-12] MEDS: Albuterol-Ipratrop 3 mg / 0.5 (3 ml) UD INH SCH ×3 (03:29→19:41)
[2018-07-12] MEDS: Enoxaparin 40 mg Syringe SC SCH (10:26)
[2018-07-12] MEDS: levETIRAcetam 100 mg/ml (5ml) Oral Syringe PO SCH ×2 (10:26→17:12)
[2018-07-13] MEDS: Acetylcysteine 20% Inhal Soln (4ml) INH SCH ×6 (00:33→19:31)
[2018-07-13] MEDS: Albuterol-Ipratrop 3 mg / 0.5 (3 ml) UD INH SCH ×4 (05:28→19:28)
--- NOTE | 2018-07-13 06:09 | CP.PCM.PN ---
Subjective - Date & Time of Evaluation Date of Evaluation: 07/13/18 Time of Evaluation: 09:15 - Subjective Subjective: PGY-1 Mona Adams D.O. Medicine progress note for Dr. Amandeep Chavis's service: Patient seen and examined this morning. He is not in acute distress. No overnight events reported. Trach in place and functioning; no evidence of infection. [place] cath in place and functioning. Gastric tube in place and functioning; no evidence of infection. SCDs are on b/l LEs. Patient turned on side, and no sacral ulcer is visualized. Soft hand wound care rn and pressure boots are ordered for patient but not on. This was communicated with the patient's nurse Ab, who stated he will get them from PT/OT. Patient had anoxic brain injury in 2014 and is nonverbal, unresponsive at baseline; unable to obtain ROS. Objective - Vital Signs/Intake and Output Vital Signs (last 24 hours): Temp Pulse Resp BP Pulse Ox 98.5 F 61 20 104/71 98 07/12/18 23:37 07/12/18 23:37 07/12/18 23:37 07/12/18 23:37 07/12/18 23:37 Intake and Output: 07/12/18 07/13/18 18:59 06:59 Intake Total 900 900 Output Total 800 400 Balance 100 500 - Medications Medications: Current Medications Acetylcysteine (Acetylcysteine 20%) 4 ml INH RQ4 [facility] Last Admin: 07/13/18 05:28 Dose: Not Given Albuterol/Ipratropium (Duoneb 3 Mg/0.5 Mg (3 Ml) Ud) 3 ml INH RQ6 [facility] Last Admin: 07/13/18 05:28 Dose: 3 ml Aspirin (Aspirin Chewable) 81 mg PEG DAILY [facility] Last Admin: 07/12/18 10:27 Dose: 81 mg Bethanechol Chloride (Urecholine) 50 mg PEG BID [facility] Last Admin: 07/12/18 17:12 Dose: 50 mg Carvedilol (Coreg) 3.125 mg PEG BID [facility] Last Admin: 07/12/18 17:12 Dose: 3.125 mg Enoxaparin Sodium (Lovenox) 40 mg SC DAILY [facility] Last Admin: 07/12/18 10:26 Dose: 40 mg Famotidine (Pepcid) 20 mg PEG DAILY [facility] Last Admin: 07/12/18 10:27 Dose: 20 mg Finasteride (Proscar) 5 mg PEG DAILY [facility] Last Admin: 07/12/18 10:26 Dose: 5 mg Levetiracetam (Keppra) 500 mg PO BID [facility] Last Admin: 07/12/18 17:12 Dose: 500 mg Rosuvastatin Calcium (Crestor) 5 mg PEG HS [facility] Last Admin: 07/12/18 21:24 Dose: 5 mg Scopolamine (Transderm-Scop) 1 patch TD Q3D [facility] Last Admin: 07/11/18 10:29 Dose: 1 patch Tamsulosin HCl (Flomax) 0.4 mg PEG DAILY [facility] Last Admin: 07/12/18 10:28 Dose: 0.4 mg - Labs Labs: 07/05/18 07:18 07/05/18 07:18 PT 10.6 SECONDS (9.7-12.2) 11/24/15 14:10 INR 1.0 11/24/15 14:10 APTT 25 SECONDS (21-34) 11/24/15 14:10 - Constitutional Appears: No Acute Distress, Younger Than Stated Age, Chronically Ill - Head Exam Head Exam: ATRAUMATIC, NORMAL INSPECTION, NORMOCEPHALIC - Eye Exam Eye Exam: Normal appearance Additional comments: eyes closed at baseline - ENT Exam ENT Exam: Mucous Membranes Moist, Normal Exam - Neck Exam Neck Exam: Normal Inspection Additional comments: trach in place - Respiratory Exam Respiratory Exam: Rhonchi (mainstem bronchi), NORMAL BREATHING PATTERN. absent : Respiratory Distress - Cardiovascular Exam Cardiovascular Exam: REGULAR RHYTHM, +S1, +S2 - GI/Abdominal Exam GI & Abdominal Exam: Soft, Normal Bowel Sounds Additional comments: PEG in place - Rectal Exam Rectal Exam: Deferred - Extremities Exam Extremities Exam: Normal Inspection Additional comments: b/l hand contractures SCDs b/l - Back Exam Back Exam: NORMAL INSPECTION Additional comments: no pressure ulcers noted - Neurological Exam Neurological Exam: absent: Alert, Awake Additional comments: baseline mental status- responsive to painful stimuli only - Psychiatric Exam Additional comments: N/A - Skin Skin Exam: Dry, Intact, Normal Color, Warm Assessment and Plan - Assessment and Plan (Free Text) Assessment: Patient is a 67 yo [place] male who suffered an anoxic brain injury after a cardiac arrest in 2014. At the time, he was found to have an intracranial hemorrhage and occlusion of the RCA and LAD. He is now nonverbal and only responds to painful stimuli. Patients family is uncooperative with placement of patient- originally wanted return to [place]. Plan: Anoxic encephalopathy, chronic, stable- s/p cardiac arrest in 05/2015 - PEG tube 45cc/hr on tube feedings - Keppra 500mg bid - Soft hand wound care rn for contractions b/l Respiratory failure, chronic, stable - RT consult - Trach in place- daily monitoring for secretions - Aggressive suctioning multiple times a day per respiratory therapist if secretions are thickened - Scopolamine 1 patch TD Q3D JOO - Duoneb 3ml INH RQ6H - Mucomyst 4ml INH RQ6H - Pulmonology consulted (Dr. Salgado) Hypokalemia, chronic, resolved - Most recent K 3.7 on 07/05/18 - Replete as needed - Continue to monitor CMP q21 days Urinary retention, chronic, stable - Tamsulosin 0.4mg daily - Finasteride 5 mg daily - Bethanechol chloride 50mg tid - Bladder scan up to 3x a week PRN to monitor residual urine - Urology consulted (Dr. Oropeza) Coronary artery disease, chronic- LAD and RCA occlusion found at time of cardiac arrest in 05/2015 - s/p cardiac stents on 06/13/15 - ASA 81mg via PEG daily - Coreg 3.125mg via PEG BID - Rosuvastatin 2.5mg via PEG QHS Sacral ulcer, resolved - Continue frequent turning, protective ointment, and daily skin checks - Wound care consulted Urinary tract infection, recurrent, resolved - ID consulted (Drs. Armstrong, Win) - Afebrile, no leukocytosis - Off IV abx since 08/05/17 - [place] condom catheter - Bladder scan PRN to prevent urinary retention Lower extremity edema, resolved - SCDs in place - B/l pressure ulcer boots PEG tube malfunction, resolved- replaced by IR 04/02/18 - GI consulted (Drs. Rose, James, Jeny) - IR consulted (Dr. Schroeder) - Medical Specialist consulted - Hold feeding from 10pm-6am, placed into nursing communication IVF: not indicated, PEG tube feeds VTE ppx: Lovenox 40mg SC daily, SCDs and offloading boots GI ppx: Pepcid 20 mg via PEG daily Diet: via PEG Code status: full code
[2018-07-13] MEDS: Enoxaparin 40 mg Syringe SC SCH (09:45)
[2018-07-13] MEDS: levETIRAcetam 100 mg/ml (5ml) Oral Syringe PO SCH ×2 (09:46→18:00)
[2018-07-14] MEDS: Acetylcysteine 20% Inhal Soln (4ml) INH SCH ×6 (00:05→20:23)
[2018-07-14] MEDS: Albuterol-Ipratrop 3 mg / 0.5 (3 ml) UD INH SCH ×4 (03:49→20:23)
[2018-07-14] MEDS: Enoxaparin 40 mg Syringe SC SCH (10:20)
[2018-07-14] MEDS: levETIRAcetam 100 mg/ml (5ml) Oral Syringe PO SCH ×2 (10:20→17:36)
[2018-07-15] MEDS: Acetylcysteine 20% Inhal Soln (4ml) INH SCH ×6 (00:03→19:41)
[2018-07-15] MEDS: Albuterol-Ipratrop 3 mg / 0.5 (3 ml) UD INH SCH ×4 (02:04→19:41)
--- NOTE | 2018-07-15 06:24 | CP.PCM.PN ---
<Mona Adams - Last Filed: 07/15/18 14:49> Subjective - Date & Time of Evaluation Date of Evaluation: 07/15/18 Time of Evaluation: 07:30 - Subjective Subjective: PGY-1 Mona Adams D.O. Medicine progress note for Dr. Amandeep Chavis's service: Patient seen and examined this morning. He is not in acute distress. No overnight events reported. Trach in place and functioning; no evidence of infection. [place] cath in place and functioning. Gastric tube in place and functioning; no evidence of infection. SCDs are on b/l LEs. Patient turned on side, and no sacral ulcer is visualized. Patient had anoxic brain injury in 2014 and is nonverbal, unresponsive at baseline; unable to obtain ROS. Objective - Vital Signs/Intake and Output Vital Signs (last 24 hours): Temp Pulse Resp BP Pulse Ox 98.3 F 70 20 102/60 99 07/14/18 23:50 07/14/18 23:50 07/14/18 23:50 07/14/18 23:50 07/14/18 23:50 Intake and Output: 07/14/18 07/15/18 18:59 06:59 Intake Total 1600 900 Output Total 850 400 Balance 750 500 - Medications Medications: Current Medications Acetylcysteine (Acetylcysteine 20%) 4 ml INH RQ4 [facility] Last Admin: 07/15/18 02:04 Dose: 4 ml Albuterol/Ipratropium (Duoneb 3 Mg/0.5 Mg (3 Ml) Ud) 3 ml INH RQ6 [facility] Last Admin: 07/15/18 02:04 Dose: 3 ml Aspirin (Aspirin Chewable) 81 mg PEG DAILY [facility] Last Admin: 07/14/18 10:20 Dose: 81 mg Bethanechol Chloride (Urecholine) 50 mg PEG BID [facility] Last Admin: 07/14/18 17:36 Dose: 50 mg Carvedilol (Coreg) 3.125 mg PEG BID [facility] Last Admin: 07/14/18 17:36 Dose: 3.125 mg Famotidine (Pepcid) 20 mg PEG DAILY [facility] Last Admin: 07/14/18 10:20 Dose: 20 mg Finasteride (Proscar) 5 mg PEG DAILY [facility] Last Admin: 07/14/18 10:20 Dose: 5 mg Levetiracetam (Keppra) 500 mg PO BID [facility] Last Admin: 07/14/18 17:36 Dose: 500 mg Rosuvastatin Calcium (Crestor) 5 mg PEG HS [facility] Last Admin: 07/14/18 21:16 Dose: 5 mg Scopolamine (Transderm-Scop) 1 patch TD Q3D [facility] Last Admin: 07/14/18 10:20 Dose: 1 patch Tamsulosin HCl (Flomax) 0.4 mg PEG DAILY [facility] Last Admin: 07/14/18 10:20 Dose: 0.4 mg - Labs Labs: 07/05/18 07:18 07/05/18 07:18 PT 10.6 SECONDS (9.7-12.2) 11/24/15 14:10 INR 1.0 11/24/15 14:10 APTT 25 SECONDS (21-34) 11/24/15 14:10 - Constitutional Appears: No Acute Distress, Younger Than Stated Age, Chronically Ill - Head Exam Head Exam: ATRAUMATIC, NORMAL INSPECTION, NORMOCEPHALIC - Eye Exam Eye Exam: EOMI, Normal appearance - ENT Exam ENT Exam: Mucous Membranes Moist, Normal Exam - Neck Exam Neck Exam: Normal Inspection Additional comments: trach in place - Respiratory Exam Respiratory Exam: Clear to Ausculation Bilateral, NORMAL BREATHING PATTERN - Cardiovascular Exam Cardiovascular Exam: REGULAR RHYTHM, +S1, +S2 - GI/Abdominal Exam GI & Abdominal Exam: Soft, Normal Bowel Sounds Additional comments: PEG tube in place - Rectal Exam Rectal Exam: Deferred - Exam Exam: NORMAL INSPECTION Additional comments: [place] [facility] cath - Extremities Exam Extremities Exam: Normal Capillary Refill, Normal Inspection - Back Exam Back Exam: NORMAL INSPECTION Additional comments: no pressure ulcers observed - Neurological Exam Additional comments: baseline nonverbal, only responsive to painful stimuli - Psychiatric Exam Additional comments: N/A - Skin Skin Exam: Dry, Intact, Normal Color, Warm Assessment and Plan - Assessment and Plan (Free Text) Assessment: Patient is a 67 yo Greek male who suffered an anoxic brain injury after a cardiac arrest in 2014. At the time, he was found to have an intracranial hemorrhage and occlusion of the RCA and LAD. He is now nonverbal and only responds to painful stimuli. Patients family is uncooperative with placement of patient- originally wanted return to [place]. 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 Salgado) Hypokalemia, chronic, resolved - Most recent K 3.7 on 07/05/18 - Replete as needed - Continue to monitor CMP q21 days Urinary retention, chronic, stable - Tamsulosin 0.4mg daily - Finasteride 5 mg daily - Bethanechol chloride 50mg tid - Bladder scan up to 3x a week PRN to monitor residual urine - Urology consulted (Dr. Oropeza) Coronary artery disease, chronic- LAD and RCA occlusion found at time of cardiac arrest in 05/2015 - s/p cardiac stents on 06/13/15 - ASA 81mg via PEG daily - Coreg 3.125mg via PEG BID - Rosuvastatin 2.5mg via PEG QHS Sacral ulcer, resolved - Continue frequent turning, protective ointment, and daily skin checks - Wound care consulted Urinary tract infection, recurrent, resolved - ID consulted (Drs. Armstrong, Win) - Afebrile, no leukocytosis - Off IV abx since 08/05/17 - [place] condom catheter - Bladder scan PRN to prevent urinary retention Lower extremity edema, resolved - SCDs in place - B/l pressure ulcer boots PEG tube malfunction, resolved- replaced by IR 04/02/18 - GI consulted (Drs. Rose, James, Jeny) - IR consulted (Dr. Schroeder) - [employer] Knitter consulted - Hold feeding from 10pm-6am, placed into nursing communication IVF: not indicated, PEG tube feeds VTE ppx: Lovenox 40mg SC daily, SCDs and offloading boots GI ppx: Pepcid 20 mg via PEG daily Diet: via PEG Code status: full code <Amadneep Chavis - Last Filed: 07/15/18 14:53> Objective - Vital Signs/Intake and Output Vital Signs (last 24 hours): Temp Pulse Resp BP Pulse Ox 99.0 F 77 20 94/63 L 99 07/15/18 08:00 07/15/18 08:00 07/15/18 08:00 07/15/18 08:00 07/15/18 08:00 Intake and Output: 07/15/18 07/15/18 06:59 18:59 Intake Total 1400 Output Total 900 Balance 500 - Medications Medications: Current Medications Acetylcysteine (Acetylcysteine 20%) 4 ml INH RQ4 [facility] Last Admin: 07/15/18 13:35 Dose: Not Given Albuterol/Ipratropium (Duoneb 3 Mg/0.5 Mg (3 Ml) Ud) 3 ml INH RQ6 [facility] Last Admin: 07/15/18 13:35 Dose: 3 ml Aspirin (Aspirin Chewable) 81 mg PEG DAILY [facility] Last Admin: 07/15/18 10:13 Dose: 81 mg Bethanechol Chloride (Urecholine) 50 mg PEG BID [facility] Last Admin: 07/15/18 10:13 Dose: 50 mg Carvedilol (Coreg) 3.125 mg PEG BID [facility] Last Admin: 07/15/18 10:14 Dose: Not Given Famotidine (Pepcid) 20 mg PEG DAILY [facility] Last Admin: 07/15/18 10:13 Dose: 20 mg Finasteride (Proscar) 5 mg PEG DAILY [facility] Last Admin: 07/15/18 10:13 Dose: 5 mg Levetiracetam (Keppra) 500 mg PO BID [facility] Last Admin: 07/15/18 10:13 Dose: 500 mg Rosuvastatin Calcium (Crestor) 5 mg PEG HS [facility] Last Admin: 07/14/18 21:16 Dose: 5 mg Scopolamine (Transderm-Scop) 1 patch TD Q3D [facility] Last Admin: 07/14/18 10:20 Dose: 1 patch Tamsulosin HCl (Flomax) 0.4 mg PEG DAILY [facility] Last Admin: 07/15/18 10:13 Dose: 0.4 mg - Labs Labs: 07/05/18 07:18 07/05/18 07:18 PT 10.6 SECONDS (9.7-12.2) 11/24/15 14:10 INR 1.0 11/24/15 14:10 APTT 25 SECONDS (21-34) 11/24/15 14:10 Assessment and Plan (1) Prophylactic measure Status: Acute (2) Anoxic encephalopathy Status: Chronic (3) STEMI (ST elevation myocardial infarction) Status: Acute (4) Cardiac arrest Status: Acute (5) Seizures Status: Acute (6) Respiratory failure Status: Chronic Attending/Attestation - Attestation I have personally seen and examined this patient.: Yes I have fully participated in the care of the patient.: Yes I have reviewed all pertinent clinical information, including history, physical exam and plan: Yes Notes (Text): 07/15/18 14:53 Medical attending: Reviewed the above note by the medical center representative. Situation is not changed from previous. Amandeep Chavis
[2018-07-15] MEDS: levETIRAcetam 100 mg/ml (5ml) Oral Syringe PO SCH ×2 (10:13→18:13)
[2018-07-16] MEDS: Acetylcysteine 20% Inhal Soln (4ml) INH SCH ×5 (00:36→19:50)
[2018-07-16] MEDS: Albuterol-Ipratrop 3 mg / 0.5 (3 ml) UD INH SCH ×3 (01:39→19:49)
[2018-07-16] MEDS: levETIRAcetam 100 mg/ml (5ml) Oral Syringe PO SCH ×2 (10:29→17:15)
[2018-07-17] MEDS: Acetylcysteine 20% Inhal Soln (4ml) INH SCH ×6 (00:16→19:42)
[2018-07-17] MEDS: Albuterol-Ipratrop 3 mg / 0.5 (3 ml) UD INH SCH ×3 (03:18→13:39)
[2018-07-17] MEDS: levETIRAcetam 100 mg/ml (5ml) Oral Syringe PO SCH ×2 (10:42→17:00)
[2018-07-18] MEDS: Acetylcysteine 20% Inhal Soln (4ml) INH SCH ×6 (00:15→21:16)
[2018-07-18] MEDS: Albuterol-Ipratrop 3 mg / 0.5 (3 ml) UD INH SCH ×4 (03:09→21:16)
[2018-07-18] MEDS: levETIRAcetam 100 mg/ml (5ml) Oral Syringe PO SCH ×2 (10:43→17:54)
[2018-07-18] MEDS: Enoxaparin 40 mg Syringe SC SCH (10:44)
--- NOTE | 2018-07-18 17:54 | CP.PCM.PN ---
Subjective - Date & Time of Evaluation Date of Evaluation: 07/18/18 Time of Evaluation: 16:00 - Subjective Subjective: Medical Attending Note: Patient seen and examined. Unable to ROS secondary to clinical condition. Objective - Vital Signs/Intake and Output Vital Signs (last 24 hours): Temp Pulse Resp BP Pulse Ox 98.1 F 72 20 107/68 95 07/18/18 15:41 07/18/18 15:41 07/18/18 15:41 07/18/18 15:41 07/18/18 15:41 Intake and Output: 07/18/18 07/18/18 06:59 18:59 Intake Total 1300 400 Output Total 1300 300 Balance 0 100 - Medications Medications: Current Medications Acetylcysteine (Acetylcysteine 20%) 4 ml INH RQ4 [facility] Last Admin: 07/18/18 13:35 Dose: 4 ml Albuterol/Ipratropium (Duoneb 3 Mg/0.5 Mg (3 Ml) Ud) 3 ml INH RQ6 [facility] Last Admin: 07/18/18 13:35 Dose: 3 ml Aspirin (Aspirin Chewable) 81 mg PEG DAILY [facility] Last Admin: 07/18/18 10:43 Dose: 81 mg Bethanechol Chloride (Urecholine) 50 mg PEG BID [facility] Last Admin: 07/18/18 10:43 Dose: 50 mg Carvedilol (Coreg) 3.125 mg PEG BID [facility] Last Admin: 07/18/18 10:46 Dose: 3.125 mg Enoxaparin Sodium (Lovenox) 40 mg SC DAILY [facility] Last Admin: 07/18/18 10:44 Dose: 40 mg Famotidine (Pepcid) 20 mg PEG DAILY [facility] Last Admin: 07/18/18 10:43 Dose: 20 mg Finasteride (Proscar) 5 mg PEG DAILY [facility] Last Admin: 07/18/18 10:44 Dose: 5 mg Levetiracetam (Keppra) 500 mg PO BID [facility] Last Admin: 07/18/18 10:43 Dose: 500 mg Rosuvastatin Calcium (Crestor) 5 mg PEG HS [facility] Last Admin: 07/17/18 21:15 Dose: 5 mg Scopolamine (Transderm-Scop) 1 patch TD Q3D [facility] Last Admin: 07/17/18 07:45 Dose: 1 patch Tamsulosin HCl (Flomax) 0.4 mg PEG DAILY [facility] Last Admin: 07/18/18 10:43 Dose: 0.4 mg - Labs Labs: 07/05/18 07:18 07/05/18 07:18 PT 10.6 SECONDS (9.7-12.2) 11/24/15 14:10 INR 1.0 11/24/15 14:10 APTT 25 SECONDS (21-34) 11/24/15 14:10 - Constitutional Appears: Chronically Ill - Head Exam Head Exam: NORMAL INSPECTION - Eye Exam Additional comments: trach collar: clean/dry/intact - Respiratory Exam Respiratory Exam: Clear to Ausculation Bilateral, NORMAL BREATHING PATTERN. absent: Rales, Rhonchi, Wheezes - Cardiovascular Exam Cardiovascular Exam: REGULAR RHYTHM, +S1, +S2 - GI/Abdominal Exam GI & Abdominal Exam: Soft, Normal Bowel Sounds. absent: Distended, Firm, Guarding, Rigid, Rebound Additional comments: peg site: clean/dry/intact - Extremities Exam Additional comments: prevalon boots - Skin Skin Exam: Dry, Normal Color, Warm Assessment and Plan - Assessment and Plan (Free Text) Assessment: Patient seen and examined at bedside. Feedings were stopped yesterday due to hiccups. Patient no longer has hiccups. Feedings were resumed. Advised RN to reinforce gastric since it was loosening from the skin. Patient has [place] Catheter in place. No sacral decub on exam. Assessment/Plan (1) Anoxic encephalopathy Assessment & Plan: * s/p cardiac arrest in 05/2015 * no acute changes in mental status. * Pt has non spontaneous movements. * patient is currently on Jevity 50cc/hr on tube feedings * via PEG * Aspirin 81mg daily * Plavix 75 mg daily * Keppra 500mg bid Status: Chronic (2) Acute Respiratory failure Assessment & Plan: * Trach in place, continue daily monitoring for secretions. No change in management at this time. * Scopolamine 1 patch TD Q3D JOO * Duoneb 3ml RQ6H * Mucomyst 4ml INHQ6H Status: Chronic (3) History of Recurrent UTIs Assessment & Plan: * ID consult: Dr. Armstrong --> help appreciated * Patient is afebrile, no apparent leukocytosis * Patient is off IV abx since 08/05/17 * patient has condom catheter and Bladder scan PRN to prevent urinary retention Status: Acute (4) History of Urinary retention Assessment & Plan: * Bethanecol 50mg PEG TID * patient has had history of recurrent UTIs * Patient has [place] catheter at bedside Status: Chronic (5) Hypokalemia Assessment & Plan: * Monitor and replete Status: Acute (6) History of Sacral ulcer Assessment & Plan: * Healed * Cont with offloading/cushioning/turning * Continue frequent turning, protective ointment and skin checks. Status: Resolved (7) History of coronary artery disease Assessment & Plan: * s/p cardiac stents on 06/13/15 * chronic- LAD and RCA occlusion found at time of cardiac arrest in 05/2015 * Cont ASA 81mg via PEG daily * Cont Coreg 3.125mg PEG BID * Cont Plavix 75 mg PEG daily Status: Acute (8) History of Seizures Assessment & Plan: * Continue Keppra 500mg PEG BID for seizure prophylaxis * Monitor for activity Status: Chronic (9) Lower extremity edema Assessment & Plan: * Improved * SCDs in place * Pressure ulcer boots on b/l * Continue to monitor Status: Chronic (10) Prophylactic measure Assessment & Plan: * Pepcid 20 mg PEG BID * Lovenox 40mg SC daily * SCDs and offloading boots * continue to turn and reposition q2hrs * Continue to monitor medication administrations and clinical presentation weekly labs. * vasoline ointment applied to feet prn to prevent hyperkeratos * Please hold feeding from 10pm-6am, placed into nursing communication * Vitamin A & D for lips * Updated wrapper caser: declared incapacitated and assigned a guardian. Consent order dated 04.20.18 from dressage judge authorizaing patient's discharge to [facility]. Family assistant prosecuting attorney requesting written documentation from [facility] stating they can take care of the patient w [place] catheter. NO bladder massages needed currently. Awaiting follow-up. Disposition: patient has prolonged hospitalization to multiple co-morbidities. Awaiting placement.
[2018-07-19] MEDS: Acetylcysteine 20% Inhal Soln (4ml) INH SCH ×6 (00:46→20:48)
[2018-07-19] MEDS: Albuterol-Ipratrop 3 mg / 0.5 (3 ml) UD INH SCH ×4 (01:02→20:48)
[2018-07-19] MEDS: Enoxaparin 40 mg Syringe SC SCH (10:13)
[2018-07-19] MEDS: levETIRAcetam 100 mg/ml (5ml) Oral Syringe PO SCH ×2 (10:13→18:31)
[2018-07-20] MEDS: Albuterol-Ipratrop 3 mg / 0.5 (3 ml) UD INH SCH ×4 (02:39→19:42)
[2018-07-20] MEDS: Acetylcysteine 20% Inhal Soln (4ml) INH SCH ×2 (02:39→07:40)
--- NOTE | 2018-07-20 08:52 | CP.PCM.PN ---
<Mino Ames - Last Filed: 07/20/18 14:03> Subjective - Date & Time of Evaluation Date of Evaluation: 07/20/18 Time of Evaluation: 08:50 - Subjective Subjective: Medicine Progress Note for Dr. Teresa Ames PGY-1 Patient was seen and examined at bedside this AM. No acute events reported overnight. Catheter in place and draining adequately. Trach in place and functioning appropriately. Gastric tube in place and functioning. SCDs are in place b/l. No sacral ulcers appreciated. 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 Unable to obtain ROS due to physical condition. Objective - Vital Signs/Intake and Output Vital Signs (last 24 hours): Temp Pulse Resp BP Pulse Ox 98.5 F 74 20 106/71 100 07/20/18 07:44 07/20/18 07:44 07/20/18 07:44 07/20/18 07:44 07/20/18 07:44 Intake and Output: 07/20/18 07/20/18 06:59 18:59 Intake Total 750 500 Output Total 500 600 Balance 250 -100 - Medications Medications: Current Medications Acetylcysteine (Acetylcysteine 20%) 4 ml INH RQ4 [facility] Last Admin: 07/20/18 07:40 Dose: 4 ml Albuterol/Ipratropium (Duoneb 3 Mg/0.5 Mg (3 Ml) Ud) 3 ml INH RQ6 [facility] Last Admin: 07/20/18 07:39 Dose: 3 ml Aspirin (Aspirin Chewable) 81 mg PEG DAILY [facility] Last Admin: 07/19/18 10:12 Dose: 81 mg Bethanechol Chloride (Urecholine) 50 mg PEG BID [facility] Last Admin: 07/19/18 18:31 Dose: 50 mg Carvedilol (Coreg) 3.125 mg PEG BID [facility] Last Admin: 07/19/18 18:32 Dose: 3.125 mg Clopidogrel Bisulfate (Plavix) 75 mg PO DAILY [facility] Last Admin: 07/19/18 10:12 Dose: 75 mg Enoxaparin Sodium (Lovenox) 40 mg SC DAILY [facility] Last Admin: 07/19/18 10:13 Dose: 40 mg Famotidine (Pepcid) 20 mg PEG DAILY [facility] Last Admin: 07/19/18 10:12 Dose: 20 mg Finasteride (Proscar) 5 mg PEG DAILY [facility] Last Admin: 07/19/18 10:13 Dose: 5 mg Levetiracetam (Keppra) 500 mg PO BID [facility] Last Admin: 07/19/18 18:31 Dose: 500 mg Rosuvastatin Calcium (Crestor) 5 mg PEG HS [facility] Last Admin: 07/19/18 21:53 Dose: 5 mg Scopolamine (Transderm-Scop) 1 patch TD Q3D [facility] Last Admin: 07/20/18 07:32 Dose: 1 patch Tamsulosin HCl (Flomax) 0.4 mg PEG DAILY [facility] Last Admin: 07/19/18 10:13 Dose: 0.4 mg - Labs Labs: 07/05/18 07:18 07/05/18 07:18 PT 10.6 SECONDS (9.7-12.2) 11/24/15 14:10 INR 1.0 11/24/15 14:10 APTT 25 SECONDS (21-34) 11/24/15 14:10 - Constitutional Appears: Chronically Ill - Head Exam Head Exam: NORMAL INSPECTION - Neck Exam Additional comments: Trach collar is clean, dry, and intact - Respiratory Exam Respiratory Exam: Clear to Ausculation Bilateral, NORMAL BREATHING PATTERN. absent: Rales, Rhonchi, Wheezes - Cardiovascular Exam Cardiovascular Exam: RRR, +S1, +S2 - GI/Abdominal Exam GI & Abdominal Exam: Soft, Normal Bowel Sounds. absent: Distended, Firm, Guarding, Rigid, Mass, Rebound Additional comments: Peg site is clean, dry, and intact - Extremities Exam Additional comments: SCDs secured b/l - Back Exam Back Exam: NORMAL INSPECTION - Skin Skin Exam: Dry, Intact, Normal Color, Warm Assessment and Plan - Assessment and Plan (Free Text) Assessment: 67 yo [place] M who suffered an anoxic brain injury after a cardiac arrest in 2014. At the time, he was found to have an intracranial hemorrhage and occlusion of the RCA and LAD. He is now nonverbal and only responds to painful stimuli. Patient's family is uncooperative with placement of patient-originally wanted return to [place]. Plan: Anoxic encephalopathy, chronic, stable- s/p cardiac arrest in 05/2015 - PEG tube 45cc/hr on tube feedings - Keppra 500mg bid - Soft hand manager philosophy for contractions b/l Respiratory failure, chronic, stable - RT consult - Trach in place- daily monitoring for secretions - Aggressive suctioning multiple times a day per respiratory therapist if secretions are thickened - Scopolamine 1 patch TD Q3D JOO - Duoneb 3ml INH RQ6H - Mucomyst 4ml INH RQ6H - Pulmonology consulted (Dr. Salgado) Hypokalemia, chronic, resolved - Most recent K 3.7 on 07/05/18 - Replete as needed - Continue to monitor CMP q21 days Urinary retention, chronic, stable - Tamsulosin 0.4mg daily - Finasteride 5 mg daily - Bethanechol chloride 50mg tid - Bladder scan up to 3x a week PRN to monitor residual urine - Urology consulted (Dr. Oropeza) Coronary artery disease, chronic- LAD and RCA occlusion found at time of cardiac arrest in 05/2015 - s/p cardiac stents on 06/13/15 - ASA 81mg via PEG daily - Coreg 3.125mg via PEG BID - Rosuvastatin 2.5mg via PEG QHS Sacral ulcer, resolved - Continue frequent turning, protective ointment, and daily skin checks - Wound care consulted Urinary tract infection, recurrent, resolved - ID consulted (Drs. Armstrong, Win) - Afebrile, no leukocytosis - Off IV abx since 08/05/17 - [place] condom catheter - Bladder scan PRN to prevent urinary retention Lower extremity edema, resolved - SCDs in place - B/l pressure ulcer boots IVF: not indicated, PEG tube feeds VTE ppx: Lovenox 40mg SC daily, SCDs and offloading boots GI ppx: Pepcid 20 mg via PEG daily Diet: via PEG Code status: full code <Jeison Moore - Last Filed: 07/21/18 19:00> Objective - Vital Signs/Intake and Output Vital Signs (last 24 hours): Temp Pulse Resp BP Pulse Ox 98 F 70 20 114/69 99 07/21/18 16:00 07/21/18 16:00 07/21/18 16:00 07/21/18 16:00 07/21/18 16:00 Intake and Output: 07/21/18 07/22/18 18:59 06:59 Intake Total 900 Output Total 500 Balance 400 - Medications Medications: Current Medications Albuterol/Ipratropium (Duoneb 3 Mg/0.5 Mg (3 Ml) Ud) 3 ml INH RQ6 [facility] Last Admin: 07/21/18 13:18 Dose: 3 ml Aspirin (Aspirin Chewable) 81 mg PEG DAILY [facility] Last Admin: 07/21/18 09:21 Dose: 81 mg Bethanechol Chloride (Urecholine) 50 mg PEG BID [facility] Last Admin: 07/21/18 17:47 Dose: 50 mg Carvedilol (Coreg) 3.125 mg PEG BID [facility] Last Admin: 07/21/18 17:47 Dose: 3.125 mg Clopidogrel Bisulfate (Plavix) 75 mg PO DAILY [facility] Last Admin: 07/21/18 09:21 Dose: 75 mg Enoxaparin Sodium (Lovenox) 40 mg SC DAILY [facility] Last Admin: 07/21/18 09:21 Dose: 40 mg Famotidine (Pepcid) 20 mg PEG DAILY [facility] Last Admin: 07/21/18 09:21 Dose: 20 mg Finasteride (Proscar) 5 mg PEG DAILY [facility] Last Admin: 07/21/18 09:21 Dose: 5 mg Levetiracetam (Keppra) 500 mg PO BID [facility] Last Admin: 07/21/18 17:48 Dose: 500 mg Rosuvastatin Calcium (Crestor) 5 mg PEG HS [facility] Scopolamine (Transderm-Scop) 1 patch TD Q3D [facility] Last Admin: 07/20/18 07:32 Dose: 1 patch Tamsulosin HCl (Flomax) 0.4 mg PEG DAILY [facility] Last Admin: 07/21/18 09:21 Dose: 0.4 mg - Labs Labs: 07/05/18 07:18 07/05/18 07:18 PT 10.6 SECONDS (9.7-12.2) 11/24/15 14:10 INR 1.0 11/24/15 14:10 APTT 25 SECONDS (21-34) 11/24/15 14:10 Attending/Attestation - Attestation I have personally seen and examined this patient.: No I have fully participated in the care of the patient.: Yes I have reviewed all pertinent clinical information, including history, physical exam and plan: Yes
[2018-07-20] MEDS: Enoxaparin 40 mg Syringe SC SCH (09:53)
[2018-07-20] MEDS: levETIRAcetam 100 mg/ml (5ml) Oral Syringe PO SCH ×2 (09:54→17:22)
[2018-07-21] MEDS: Albuterol-Ipratrop 3 mg / 0.5 (3 ml) UD INH SCH ×4 (01:34→20:28)
[2018-07-21] MEDS: Enoxaparin 40 mg Syringe SC SCH (09:21)
[2018-07-21] MEDS: levETIRAcetam 100 mg/ml (5ml) Oral Syringe PO SCH ×2 (09:21→17:48)
[2018-07-22] MEDS: Albuterol-Ipratrop 3 mg / 0.5 (3 ml) UD INH SCH ×4 (01:33→19:25)
[2018-07-22] MEDS: levETIRAcetam 100 mg/ml (5ml) Oral Syringe PO SCH ×2 (10:49→17:42)
[2018-07-22] MEDS: Enoxaparin 40 mg Syringe SC SCH (10:49)
--- NOTE | 2018-07-22 14:36 | CP.PCM.PN ---
<Mino Ames - Last Filed: 07/22/18 14:33> Subjective - Date & Time of Evaluation Date of Evaluation: 07/22/18 Time of Evaluation: 09:00 - Subjective Subjective: PGY-[address] Moore Patient seen and examined at bedside this AM. No acute events reported overnight. Pt weighed today for feeding calculations, found to be 162lbs. Catheter in place and draining adequately. Trach in place and functioning appropriately. Gastric tube in place and functioning. SCDs are in place b/l. No sacral ulcers appreciated. 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 Unable to obtain ROS due to physical condition. Objective - Vital Signs/Intake and Output Vital Signs (last 24 hours): Temp Pulse Resp BP Pulse Ox 98 F 67 20 104/68 97 07/22/18 08:11 07/22/18 08:11 07/22/18 08:11 07/22/18 08:11 07/22/18 08:11 Intake and Output: 07/22/18 07/22/18 06:59 18:59 Intake Total 800 900 Output Total 800 600 Balance 0 300 - Medications Medications: Current Medications Albuterol/Ipratropium (Duoneb 3 Mg/0.5 Mg (3 Ml) Ud) 3 ml INH RQ6 [facility] Last Admin: 07/22/18 13:43 Dose: 3 ml Aspirin (Aspirin Chewable) 81 mg PEG DAILY [facility] Last Admin: 07/22/18 10:49 Dose: 81 mg Bethanechol Chloride (Urecholine) 50 mg PEG BID [facility] Last Admin: 07/22/18 10:49 Dose: 50 mg Carvedilol (Coreg) 3.125 mg PEG BID [facility] Last Admin: 07/22/18 11:14 Dose: 3.125 mg Clopidogrel Bisulfate (Plavix) 75 mg PO DAILY [facility] Last Admin: 07/22/18 10:49 Dose: 75 mg Enoxaparin Sodium (Lovenox) 40 mg SC DAILY [facility] Last Admin: 07/22/18 10:49 Dose: 40 mg Famotidine (Pepcid) 20 mg PEG DAILY [facility] Last Admin: 07/22/18 10:49 Dose: 20 mg Finasteride (Proscar) 5 mg PEG DAILY [facility] Last Admin: 07/22/18 10:56 Dose: 5 mg Levetiracetam (Keppra) 500 mg PO BID [facility] Last Admin: 07/22/18 10:49 Dose: 500 mg Rosuvastatin Calcium (Crestor) 5 mg PEG HS [facility] Last Admin: 07/21/18 21:33 Dose: 5 mg Scopolamine (Transderm-Scop) 1 patch TD Q3D [facility] Last Admin: 07/20/18 07:32 Dose: 1 patch Tamsulosin HCl (Flomax) 0.4 mg PEG DAILY [facility] Last Admin: 07/22/18 10:49 Dose: 0.4 mg - Labs Labs: 07/05/18 07:18 07/05/18 07:18 PT 10.6 SECONDS (9.7-12.2) 11/24/15 14:10 INR 1.0 11/24/15 14:10 APTT 25 SECONDS (21-34) 11/24/15 14:10 - Constitutional Appears: Chronically Ill - Head Exam Head Exam: ATRAUMATIC, NORMAL INSPECTION, NORMOCEPHALIC - Neck Exam Additional comments: Trach collar is clean, dry, and intact - Respiratory Exam Respiratory Exam: Clear to Ausculation Bilateral, NORMAL BREATHING PATTERN - Cardiovascular Exam Cardiovascular Exam: RRR, +S1, +S2 - GI/Abdominal Exam GI & Abdominal Exam: Soft, Normal Bowel Sounds. absent: Distended, Firm, Guarding, Rigid Additional comments: Peg site is clean, dry, and intact - Extremities Exam Additional comments: SCDs secured b/l - Back Exam Back Exam: NORMAL INSPECTION - Skin Skin Exam: Dry, Intact, Normal Color, Warm Assessment and Plan - Assessment and Plan (Free Text) Assessment: 67 yo [place] M who suffered an anoxic brain injury after a cardiac arrest in 2014. At the time, he was found to have an intracranial hemorrhage and occlusion of the RCA and LAD. He is now nonverbal and only responds to painful stimuli. Patient's family is uncooperative with placement of patient-originally wanted return to [place]. Plan: 1. Anoxic encephalopathy, chronic, stable- s/p cardiac arrest in 05/2015 - PEG tube 45cc/hr on tube feedings - Keppra 500mg bid - Soft hand park interpretive ranger for contractions b/l 2. Respiratory failure, chronic, stable - RT consult - Trach in place- daily monitoring for secretions - Aggressive suctioning multiple times a day per respiratory therapist if secretions are thickened - Scopolamine 1 patch TD Q3D JOO - Duoneb 3ml INH RQ6H - Mucomyst 4ml INH RQ6H - Pulmonology consulted (Dr. Salgado) 3. Hypokalemia, chronic, resolved - Most recent K 3.7 on 07/05/18 - Replete as needed - Continue to monitor CMP q21 days 4. Urinary retention, chronic, stable - Tamsulosin 0.4mg daily - Finasteride 5 mg daily - Bethanechol chloride 50mg tid - Bladder scan up to 3x a week PRN to monitor residual urine - Urology consulted (Dr. Oropeza) 5. Coronary artery disease, chronic- LAD and RCA occlusion found at time of cardiac arrest in 05/2015 - s/p cardiac stents on 06/13/15 - ASA 81mg via PEG daily - Coreg 3.125mg via PEG BID - Rosuvastatin 2.5mg via PEG QHS 6. Sacral ulcer, resolved - Continue frequent turning, protective ointment, and daily skin checks - Wound care consulted 7. Urinary tract infection, recurrent, resolved - ID consulted (Drs. Armstrong, Win) - Afebrile, no leukocytosis - Off IV abx since 08/05/17 - [place] condom catheter - Bladder scan PRN to prevent urinary retention 8. Lower extremity edema, resolved - SCDs in place - B/l pressure ulcer boots IVF: not indicated, PEG tube feeds VTE ppx: Lovenox 40mg SC daily, SCDs and offloading boots GI ppx: Pepcid 20 mg via PEG daily Diet: via PEG Code status: full code <Jeison Moore - Last Filed: 07/31/18 11:04> Objective - Vital Signs/Intake and Output Vital Signs (last 24 hours): Temp Pulse Resp BP Pulse Ox 98.7 F 75 20 123/76 96 07/31/18 08:00 07/31/18 08:00 07/31/18 08:00 07/31/18 08:00 07/31/18 08:00 Intake and Output: 07/31/18 07/31/18 06:59 18:59 Intake Total 1800 Output Total 950 Balance 850 - Medications Medications: Current Medications Acetylcysteine (Acetylcysteine 20%) 4 ml INH RQ6 [facility] Last Admin: 07/31/18 08:19 Dose: 4 ml Albuterol/Ipratropium (Duoneb 3 Mg/0.5 Mg (3 Ml) Ud) 3 ml INH RQ6 [facility] Last Admin: 07/31/18 08:19 Dose: 3 ml Aspirin (Aspirin Chewable) 81 mg PEG DAILY [facility] Last Admin: 07/31/18 09:54 Dose: 81 mg Bethanechol Chloride (Urecholine) 50 mg PEG BID [facility] Last Admin: 07/31/18 09:53 Dose: 50 mg Carvedilol (Coreg) 3.125 mg PEG BID [facility] Last Admin: 07/31/18 09:54 Dose: 3.125 mg Clopidogrel Bisulfate (Plavix) 75 mg PO DAILY [facility] Last Admin: 07/31/18 09:54 Dose: 75 mg Enoxaparin Sodium (Lovenox) 40 mg SC DAILY [facility] Last Admin: 07/31/18 09:53 Dose: 40 mg Famotidine (Pepcid) 20 mg PEG DAILY [facility] Last Admin: 07/31/18 09:54 Dose: 20 mg Finasteride (Proscar) 5 mg PEG DAILY [facility] Last Admin: 07/31/18 10:01 Dose: 5 mg Levetiracetam (Keppra) 500 mg PO BID [facility] Last Admin: 07/31/18 09:53 Dose: 500 mg Rosuvastatin Calcium (Crestor) 5 mg PEG HS [facility] Last Admin: 07/30/18 21:18 Dose: 5 mg Scopolamine (Transderm-Scop) 1 patch TD Q3D [facility] Last Admin: 07/29/18 17:03 Dose: 1 patch Tamsulosin HCl (Flomax) 0.4 mg PEG DAILY [facility] Last Admin: 07/31/18 09:53 Dose: 0.4 mg - Labs Labs: 07/28/18 11:12 07/27/18 11:17 PT 10.6 SECONDS (9.7-12.2) 11/24/15 14:10 INR 1.0 11/24/15 14:10 APTT 25 SECONDS (21-34) 11/24/15 14:10 Attending/Attestation - Attestation I have personally seen and examined this patient.: No I have fully participated in the care of the patient.: Yes I have reviewed all pertinent clinical information, including history, physical exam and plan: Yes
[2018-07-23] MEDS: Albuterol-Ipratrop 3 mg / 0.5 (3 ml) UD INH SCH (01:41)
[2018-07-23] MEDS: Enoxaparin 40 mg Syringe SC SCH (11:00)
[2018-07-23] MEDS: levETIRAcetam 100 mg/ml (5ml) Oral Syringe PO SCH ×2 (11:27→14:49)
[2018-07-24] MEDS: Enoxaparin 40 mg Syringe SC SCH (10:24)
--- NOTE | 2018-07-24 13:11 | RAD ---
Date of service: 07/24/2018 HISTORY: NGT reinsertion placement COMPARISON: Comparison chest 07/23/2018. FINDINGS: In situ tracheostomy tube remains in good position. NGT is present, the tip of which overlies left parasagittal mid abdomen. LUNGS: Low lung volumes with crowded bronchovascular markings and bibasilar atelectasis. Developing infiltrates could be excluded with followup radiographs. PLEURA: No significant pleural effusion identified, no pneumothorax apparent. CARDIOVASCULAR: The cardiomegaly. OSSEOUS STRUCTURES: No significant abnormalities. VISUALIZED UPPER ABDOMEN: Normal. OTHER FINDINGS: None. IMPRESSION: In situ NGT in good position as described. . Tracheostomy tube remains in good position Low lung volumes with crowded bronchovascular markings and bibasilar atelectasis. Developing lower lobe infiltrates could be excluded with followup radiographs
--- NOTE | 2018-07-24 13:15 | RAD ---
Date of service: 07/23/2018 HISTORY: NG tube placement COMPARISON: Comparison chest 09/28/2017 FINDINGS: In situ NGT, the tip of which lies left parasagittal upper abdomen. Tracheostomy tube remains in good position. LUNGS: Mild bibasilar scarring. PLEURA: No significant pleural effusion identified, no pneumothorax apparent. CARDIOVASCULAR: Heart appears mildly enlarged OSSEOUS STRUCTURES: No significant abnormalities. VISUALIZED UPPER ABDOMEN: Normal. OTHER FINDINGS: None. IMPRESSION: ETT and tracheostomy tube as above. Bibasilar scarring.
[2018-07-25] MEDS: Enoxaparin 40 mg Syringe SC SCH (09:50)
[2018-07-26] MEDS: Albuterol-Ipratrop 3 mg / 0.5 (3 ml) UD INH SCH ×3 (07:46→19:34)
[2018-07-26] MEDS: Acetylcysteine 20% Inhal Soln (4ml) INH SCH ×3 (07:46→19:34)
[2018-07-26 08:54] LABS: ALB/GLOB RATIO 0.9 (1.0-2.1); ALBUMIN 3.8 g/dL (3.5-5.0); ALT/SGPT 40 U/L (21-72); AST/SGOT 29 U/L (17-59); BLOOD UREA NITROGEN 11 mg/dL (9-20); CALCIUM 8.8 mg/dl (8.6-10.4); GFR NON-AFRICAN AMERICAN > 60
[2018-07-27] MEDS: Albuterol-Ipratrop 3 mg / 0.5 (3 ml) UD INH SCH ×4 (01:54→20:22)
[2018-07-27] MEDS: Acetylcysteine 20% Inhal Soln (4ml) INH SCH ×4 (01:54→20:22)
--- NOTE | 2018-07-27 09:28 | CP.PCM.PN ---
Subjective - Date & Time of Evaluation Date of Evaluation: 07/27/18 Time of Evaluation: 09:17 - Subjective Subjective: PGY-[address] Moore Patient was seen and examined at bedside this AM. No acute overnight events reported. Catheter in place and draining adequately. Trach in place and functioning appropriately. GT flushed with tatyana evgeny, unclogged over weekend. Flushed with water, patent, no resistance noted. Feeding with GT tolerated well. SCDs are in place b/l. No sacral ulcers appreciated. 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 Unable to obtain ROS due to physical condition. Objective - Vital Signs/Intake and Output Vital Signs (last 24 hours): Temp Pulse Resp BP Pulse Ox 99.0 F 77 20 110/69 99 07/27/18 08:00 07/27/18 08:00 07/27/18 08:00 07/27/18 08:00 07/27/18 08:00 Intake and Output: 07/27/18 07/27/18 06:59 18:59 Intake Total 1800 Output Total 400 Balance 1400 - Medications Medications: Current Medications Acetylcysteine (Acetylcysteine 20%) 4 ml INH RQ6 [facility] Last Admin: 07/27/18 07:57 Dose: 4 ml Albuterol/Ipratropium (Duoneb 3 Mg/0.5 Mg (3 Ml) Ud) 3 ml INH RQ6 [facility] Last Admin: 07/27/18 07:57 Dose: 3 ml Aspirin (Aspirin Chewable) 81 mg PEG DAILY [facility] Last Admin: 07/26/18 10:58 Dose: 81 mg Bethanechol Chloride (Urecholine) 50 mg PEG BID [facility] Last Admin: 07/26/18 17:23 Dose: 50 mg Carvedilol (Coreg) 3.125 mg PEG BID [facility] Last Admin: 07/26/18 17:23 Dose: 3.125 mg Clopidogrel Bisulfate (Plavix) 75 mg PO DAILY [facility] Last Admin: 07/26/18 10:58 Dose: 75 mg Enoxaparin Sodium (Lovenox) 40 mg SC DAILY [facility] Famotidine (Pepcid) 20 mg PEG DAILY [facility] Last Admin: 07/26/18 10:58 Dose: 20 mg Finasteride (Proscar) 5 mg PEG DAILY [facility] Last Admin: 07/26/18 10:57 Dose: 5 mg Levetiracetam (Keppra) 500 mg PO BID [facility] Last Admin: 07/26/18 17:23 Dose: 500 mg Rosuvastatin Calcium (Crestor) 5 mg PEG HS [facility] Last Admin: 07/26/18 21:18 Dose: 5 mg Scopolamine (Transderm-Scop) 1 patch TD Q3D [facility] Last Admin: 07/26/18 17:23 Dose: 1 patch Tamsulosin HCl (Flomax) 0.4 mg PEG DAILY [facility] Last Admin: 07/26/18 10:58 Dose: 0.4 mg - Labs Labs: 07/05/18 07:18 07/26/18 08:16 PT 10.6 SECONDS (9.7-12.2) 11/24/15 14:10 INR 1.0 11/24/15 14:10 APTT 25 SECONDS (21-34) 11/24/15 14:10 - Constitutional Appears: Chronically Ill - Head Exam Head Exam: ATRAUMATIC, NORMAL INSPECTION, NORMOCEPHALIC - Neck Exam Additional comments: Trach collar is clean, dry, and intact - Cardiovascular Exam Cardiovascular Exam: REGULAR RHYTHM, +S1, +S2 - GI/Abdominal Exam GI & Abdominal Exam: Soft, Normal Bowel Sounds Additional comments: GT is clean, dry, and intact - Extremities Exam Additional comments: SCDs secured b/l - Back Exam Back Exam: NORMAL INSPECTION - Skin Skin Exam: Dry, Intact, Normal Color, Warm Assessment and Plan - Assessment and Plan (Free Text) Assessment: 67 yo Citizen Of [place] M who suffered an anoxic brain injury after a cardiac arrest in 2014. At the time, he was found to have an intracranial hemorrhage and occlusion of the RCA and LAD. He is now nonverbal and only responds to painful stimuli. Patient's family is uncooperative with placement of patient-originally wanted return to [place]. Plan: 1. 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 Respiratory failure, chronic, stable - RT consult - Trach in place- daily monitoring for secretions - Aggressive suctioning multiple times a day per respiratory therapist if secretions are thickened - Scopolamine 1 patch TD Q3D [facility] - Duoneb 3ml INH RQ6H - Mucomyst 4ml INH RQ6H - Pulmonology consulted (Dr. Salgado) 3. Hypokalemia, chronic, resolved - Most recent K 3.7 on 07/05/18 - Replete as needed - Continue to monitor CMP q21 days 4. Urinary retention, chronic, stable - Tamsulosin 0.4mg daily - Finasteride 5 mg daily - Bethanechol chloride 50mg tid - Bladder scan up to 3x a week PRN to monitor residual urine - Urology consulted (Dr. Oropeza) 5. Coronary artery disease, chronic- LAD and RCA occlusion found at time of cardiac arrest in 05/2015 - s/p cardiac stents on 06/13/15 - ASA 81mg via PEG daily - Coreg 3.125mg via PEG BID - Rosuvastatin 2.5mg via PEG QHS 6. Sacral ulcer, resolved - Continue frequent turning, protective ointment, and daily skin checks - Wound care consulted 7. Urinary tract infection, recurrent, resolved - ID consulted (Drs. Armstrong, Win) - Afebrile, no leukocytosis - Off IV abx since 08/05/17 - [place] condom catheter - Bladder scan PRN to prevent urinary retention 8. Lower extremity edema, resolved - SCDs in place - B/l pressure ulcer boots IVF: not indicated, PEG tube feeds VTE ppx: Lovenox 40mg SC daily, SCDs and offloading boots GI ppx: Pepcid 20 mg via PEG daily Diet: via PEG Code status: full code Case discussed with Dr. Teresa Ames, PGY-1
[2018-07-27] MEDS: Enoxaparin 40 mg Syringe SC SCH (09:48)
[2018-07-27] MEDS: levETIRAcetam 100 mg/ml (5ml) Oral Syringe PO SCH ×2 (09:55→17:43)
[2018-07-27 11:33] LABS: BLOOD UREA NITROGEN 11 mg/dL (9-20); CALCIUM 8.9 mg/dl (8.6-10.4); GFR NON-AFRICAN AMERICAN > 60
[2018-07-28] MEDS: Acetylcysteine 20% Inhal Soln (4ml) INH SCH ×4 (01:40→20:48)
[2018-07-28] MEDS: Albuterol-Ipratrop 3 mg / 0.5 (3 ml) UD INH SCH ×4 (01:40→20:48)
[2018-07-28] MEDS: levETIRAcetam 100 mg/ml (5ml) Oral Syringe PO SCH ×2 (11:00→17:29)
[2018-07-28] MEDS: Enoxaparin 40 mg Syringe SC SCH (11:00)
[2018-07-28 11:19] LABS: BASO % 0.5 % (0.0-2.0); EOS # 0.4 K/uL (0.0-0.7); EOS % 3.8 % (0.0-4.0); HEMOGLOBIN 11.7 g/dL (12.0-18.0); LYMPH # 2.5 K/uL (1.0-4.3); LYMPH % 22.9 % (20.0-40.0); MEAN CELL VOLUME 88.6 fL (80.0-94.0); MEAN CORPUSCULAR HEMOGLOBIN 29.4 pg (27.0-31.0); MEAN CORPUSCULAR HGB CONC 33.2 g/dL (33.0-37.0); MEAN PLATELET VOLUME 9.1 fL (7.2-11.7); MONO # 0.8 K/uL (0.0-0.8); NEUT # 7.1 K/uL (1.8-7.0); NEUT % 65.8 % (50.0-75.0); RBC 3.97 Mil/uL (4.40-5.90); RED CELL DISTRIBUTION WIDTH 15.4 % (11.5-14.5); WHITE BLOOD COUNT 10.8 K/uL (4.8-10.8)
[2018-07-29] MEDS: Albuterol-Ipratrop 3 mg / 0.5 (3 ml) UD INH SCH ×4 (01:27→20:28)
[2018-07-29] MEDS: Acetylcysteine 20% Inhal Soln (4ml) INH SCH ×4 (01:27→20:28)
--- NOTE | 2018-07-29 07:51 | CP.PCM.PN ---
Subjective - Date & Time of Evaluation Date of Evaluation: 07/29/18 Time of Evaluation: 07:49 - Subjective Subjective: PGY-[address] Chavis Patient was seen and examined at bedside this AM. No acute overnight events reported. Catheter in place and draining adequately. Trach in place and functioning appropriately. Feeding with GT tolerated well. SCDs are in place b/ l. No sacral ulcers appreciated. 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 Unable to obtain ROS due to physical condition. Objective - Vital Signs/Intake and Output Vital Signs (last 24 hours): Temp Pulse Resp BP Pulse Ox 98.7 F 70 20 108/67 99 07/29/18 00:11 07/29/18 00:11 07/29/18 00:11 07/29/18 00:11 07/29/18 00:11 Intake and Output: 07/29/18 07/29/18 06:59 18:59 Intake Total 1800 Output Total 1000 Balance 800 - Medications Medications: Current Medications Acetylcysteine (Acetylcysteine 20%) 4 ml INH RQ6 [facility] Last Admin: 07/29/18 01:27 Dose: 4 ml Albuterol/Ipratropium (Duoneb 3 Mg/0.5 Mg (3 Ml) Ud) 3 ml INH RQ6 [facility] Last Admin: 07/29/18 01:27 Dose: 3 ml Aspirin (Aspirin Chewable) 81 mg PEG DAILY [facility] Last Admin: 07/28/18 11:00 Dose: 81 mg Bethanechol Chloride (Urecholine) 50 mg PEG BID [facility] Last Admin: 07/28/18 17:29 Dose: 50 mg Carvedilol (Coreg) 3.125 mg PEG BID [facility] Last Admin: 07/28/18 17:29 Dose: 3.125 mg Clopidogrel Bisulfate (Plavix) 75 mg PO DAILY [facility] Last Admin: 07/28/18 11:00 Dose: 75 mg Enoxaparin Sodium (Lovenox) 40 mg SC DAILY [facility] Last Admin: 07/28/18 11:00 Dose: 40 mg Famotidine (Pepcid) 20 mg PEG DAILY [facility] Last Admin: 07/28/18 11:00 Dose: 20 mg Finasteride (Proscar) 5 mg PEG DAILY [facility] Last Admin: 07/28/18 11:00 Dose: 5 mg Levetiracetam (Keppra) 500 mg PO BID [facility] Last Admin: 07/28/18 17:29 Dose: 500 mg Potassium Chloride (Potassium Chloride Oral Soln) 20 meq PO ONCE [facility] Last Admin: 07/27/18 10:08 Dose: 20 meq Rosuvastatin Calcium (Crestor) 5 mg PEG HS [facility] Last Admin: 07/28/18 21:33 Dose: 5 mg Scopolamine (Transderm-Scop) 1 patch TD Q3D [facility] Last Admin: 07/26/18 17:23 Dose: 1 patch Tamsulosin HCl (Flomax) 0.4 mg PEG DAILY [facility] Last Admin: 07/28/18 11:00 Dose: 0.4 mg - Labs Labs: 07/28/18 11:12 07/27/18 11:17 PT 10.6 SECONDS (9.7-12.2) 11/24/15 14:10 INR 1.0 11/24/15 14:10 APTT 25 SECONDS (21-34) 11/24/15 14:10 - Constitutional Appears: Chronically Ill - Head Exam Head Exam: ATRAUMATIC, NORMAL INSPECTION, NORMOCEPHALIC - Neck Exam Additional comments: Trach collar is clean, dry, and intact - Cardiovascular Exam Cardiovascular Exam: REGULAR RHYTHM, +S1, +S2 - GI/Abdominal Exam GI & Abdominal Exam: Soft, Normal Bowel Sounds. absent: Distended, Firm, Guarding, Rigid, Tenderness, Mass, Rebound Additional comments: GT is clean, dry, and intact - Back Exam Back Exam: NORMAL INSPECTION - Skin Skin Exam: Dry, Intact, Normal Color, Warm Assessment and Plan - Assessment and Plan (Free Text) Assessment: 67 yo Italian M who suffered an anoxic brain injury after a cardiac arrest in 2014. At the time, he was found to have an intracranial hemorrhage and occlusion of the RCA and LAD. He is now nonverbal and only responds to painful stimuli. Patient's family is uncooperative with placement of patient-originally wanted return to [place]. Plan: 1. 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 Respiratory failure, chronic, stable - RT consult - Trach in place- daily monitoring for secretions - Aggressive suctioning multiple times a day per respiratory therapist if secretions are thickened - Scopolamine 1 patch TD Q3D [facility] - Duoneb 3ml INH RQ6H - Mucomyst 4ml INH RQ6H - Pulmonology consulted (Dr. Salgado) 3. Hypokalemia, chronic, resolved - Most recent K 3.7 on 07/05/18 - Replete as needed - Continue to monitor CMP q21 days 4. Urinary retention, chronic, stable - Tamsulosin 0.4mg daily - Finasteride 5 mg daily - Bethanechol chloride 50mg tid - Bladder scan up to 3x a week PRN to monitor residual urine - Urology consulted (Dr. Oropeza) 5. Coronary artery disease, chronic- LAD and RCA occlusion found at time of cardiac arrest in 05/2015 - s/p cardiac stents on 06/13/15 - ASA 81mg via PEG daily - Coreg 3.125mg via PEG BID - Rosuvastatin 2.5mg via PEG QHS 6. Sacral ulcer, resolved - Continue frequent turning, protective ointment, and daily skin checks - Wound care consulted 7. Urinary tract infection, recurrent, resolved - ID consulted (Drs. Armstrong, Win) - Afebrile, no leukocytosis - Off IV abx since 08/05/17 - [place] condom catheter - Bladder scan PRN to prevent urinary retention 8. Lower extremity edema, resolved - SCDs in place - B/l pressure ulcer boots IVF: not indicated, PEG tube feeds VTE ppx: Lovenox 40mg SC daily, SCDs and offloading boots GI ppx: Pepcid 20 mg via PEG daily Diet: via PEG Code status: full code Case discussed with Dr. Palmira Ames, PGY-1
[2018-07-29] MEDS: levETIRAcetam 100 mg/ml (5ml) Oral Syringe PO SCH ×3 (12:39→17:03)
[2018-07-29] MEDS: Enoxaparin 40 mg Syringe SC SCH ×2 (12:40→12:44)
[2018-07-30] MEDS: Acetylcysteine 20% Inhal Soln (4ml) INH SCH ×4 (02:29→20:54)
[2018-07-30] MEDS: Albuterol-Ipratrop 3 mg / 0.5 (3 ml) UD INH SCH ×4 (02:29→20:55)
--- NOTE | 2018-07-30 04:10 | PN ---
DATE: 07/29/2018 SUBJECTIVE: I was asked by [facility] to look at Mr. Lyons and go over his medications, aspirin, Coreg, Crestor, DuoNebs, Flomax, Keppra, Lovenox, Pepcid, Plavix, calcium, Proscar, . PHYSICAL EXAMINATION: VITAL SIGNS: He has a 98.7 temp, 70 pulse, 108/67 blood pressure, 20 respiratory rate, 99% O2 sat on trach collar. LABORATORY DATA: He has a 10.8 white count, 11.7 hemoglobin, 35.2 hematocrit, 257 platelets. He has 144 sodium, potassium 3.8, BUN 11, creatinine 0.6. Blood sugar is 118. Calcium is 8.9. He had a chest x-ray that showed in situ NG tube in good position. Tracheostomy tube remains in good position. Low lung volumes with crowded bronchovascular markings, bibasilar atelectasis. He is here for anoxic encephalopathy, chronic, stable; status post cardiac arrest; PEG tube; respiratory failure, chronic, stable; hypokalemia, chronic, resolved; urinary retention, chronic, stable; coronary artery disease, chronic; peptic ulcer, resolved; urinary tract infection, recurrent, resolved; lower extremity edema, resolved. I will be the doctor taking care of Mr. Lyons at [facility], and I reviewed the chart. I have no problems taking care of him over there. Discussed with administration department, no problem seeing him at [facility]. Frederick Mariscal DO MTDD
[2018-07-30] MEDS: levETIRAcetam 100 mg/ml (5ml) Oral Syringe PO SCH ×2 (09:58→18:22)
[2018-07-30] MEDS: Enoxaparin 40 mg Syringe SC SCH (09:59)
[2018-07-31] MEDS: Albuterol-Ipratrop 3 mg / 0.5 (3 ml) UD INH SCH ×4 (02:55→20:33)
[2018-07-31] MEDS: Acetylcysteine 20% Inhal Soln (4ml) INH SCH ×4 (02:55→20:33)
[2018-07-31] MEDS: Enoxaparin 40 mg Syringe SC SCH (09:53)
[2018-07-31] MEDS: levETIRAcetam 100 mg/ml (5ml) Oral Syringe PO SCH ×2 (09:53→17:55)
[2018-08-01] MEDS: Albuterol-Ipratrop 3 mg / 0.5 (3 ml) UD INH SCH ×4 (01:43→19:39)
[2018-08-01] MEDS: Acetylcysteine 20% Inhal Soln (4ml) INH SCH ×4 (01:50→19:39)
[2018-08-01] MEDS: levETIRAcetam 100 mg/ml (5ml) Oral Syringe PO SCH ×2 (10:17→17:34)
[2018-08-01] MEDS: Enoxaparin 40 mg Syringe SC SCH (10:18)
[2018-08-02] MEDS: Acetylcysteine 20% Inhal Soln (4ml) INH SCH ×4 (01:54→19:11)
[2018-08-02] MEDS: Albuterol-Ipratrop 3 mg / 0.5 (3 ml) UD INH SCH ×4 (01:54→19:11)
[2018-08-02] MEDS: levETIRAcetam 100 mg/ml (5ml) Oral Syringe PO SCH ×2 (09:48→17:48)
[2018-08-02] MEDS: Enoxaparin 40 mg Syringe SC SCH (09:49)
[2018-08-03] MEDS: Albuterol-Ipratrop 3 mg / 0.5 (3 ml) UD INH SCH ×4 (01:17→19:40)
[2018-08-03] MEDS: Acetylcysteine 20% Inhal Soln (4ml) INH SCH ×4 (01:18→19:40)
--- NOTE | 2018-08-03 07:59 | CP.PCM.PN ---
<Mino Ames - Last Filed: 08/03/18 07:56> Subjective - Date & Time of Evaluation Date of Evaluation: 08/03/18 Time of Evaluation: 07:57 - Subjective Subjective: PGY-[address] Moore Patient was seen and examined at bedside this AM. No acute overnight events reported. Catheter in place and draining adequately. Trach in place and functioning appropriately. Feeding with GT tolerated well. SCDs are in place b/ l. No sacral ulcers appreciated. 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 Unable to obtain ROS due to physical condition. Objective - Vital Signs/Intake and Output Vital Signs (last 24 hours): Temp Pulse Resp BP Pulse Ox 98.2 F 73 20 110/69 99 08/02/18 23:28 08/02/18 23:28 08/02/18 23:28 08/02/18 23:28 08/02/18 23:28 Intake and Output: 08/03/18 08/03/18 06:59 18:59 Intake Total 1800 Output Total 1000 Balance 800 - Medications Medications: Current Medications Acetylcysteine (Acetylcysteine 20%) 4 ml INH RQ6 [facility] Last Admin: 08/03/18 01:18 Dose: Not Given Albuterol/Ipratropium (Duoneb 3 Mg/0.5 Mg (3 Ml) Ud) 3 ml INH RQ6 [facility] Last Admin: 08/03/18 01:17 Dose: 3 ml Aspirin (Aspirin Chewable) 81 mg PEG DAILY [facility] Last Admin: 08/02/18 09:48 Dose: 81 mg Bethanechol Chloride (Urecholine) 50 mg PEG BID [facility] Last Admin: 08/02/18 17:48 Dose: 50 mg Carvedilol (Coreg) 3.125 mg PEG BID [facility] Last Admin: 08/02/18 17:48 Dose: 3.125 mg Clopidogrel Bisulfate (Plavix) 75 mg PO DAILY [facility] Last Admin: 08/02/18 09:49 Dose: 75 mg Enoxaparin Sodium (Lovenox) 40 mg SC DAILY [facility] Last Admin: 08/02/18 09:49 Dose: 40 mg Famotidine (Pepcid) 20 mg PEG DAILY [facility] Last Admin: 08/02/18 09:50 Dose: 20 mg Finasteride (Proscar) 5 mg PEG DAILY [facility] Last Admin: 08/02/18 09:48 Dose: 5 mg Levetiracetam (Keppra) 500 mg PO BID [facility] Last Admin: 08/02/18 17:48 Dose: 500 mg Rosuvastatin Calcium (Crestor) 5 mg PEG HS [facility] Last Admin: 08/02/18 21:38 Dose: 5 mg Scopolamine (Transderm-Scop) 1 patch TD Q3D [facility] Last Admin: 08/01/18 17:35 Dose: 1 patch Tamsulosin HCl (Flomax) 0.4 mg PEG DAILY [facility] Last Admin: 08/02/18 09:48 Dose: 0.4 mg - Labs Labs: 07/28/18 11:12 07/27/18 11:17 PT 10.6 SECONDS (9.7-12.2) 11/24/15 14:10 INR 1.0 11/24/15 14:10 APTT 25 SECONDS (21-34) 11/24/15 14:10 - Constitutional Appears: Chronically Ill - Head Exam Head Exam: ATRAUMATIC, NORMAL INSPECTION, NORMOCEPHALIC - Neck Exam Additional comments: Trach collar is clean, dry, and intact - GI/Abdominal Exam GI & Abdominal Exam: Soft, Normal Bowel Sounds Additional comments: GT is clean, dry, and intact - Back Exam Back Exam: NORMAL INSPECTION - Skin Skin Exam: Dry, Intact, Normal Color, Warm Assessment and Plan - Assessment and Plan (Free Text) Assessment: 67 yo Austrian M who suffered an anoxic brain injury after a cardiac arrest in 2014. At the time, he was found to have an intracranial hemorrhage and occlusion of the RCA and LAD. He is now nonverbal and only responds to painful stimuli. Patient's family is uncooperative with placement of patient-originally wanted return to [place]. Plan: 1. 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 Respiratory failure, chronic, stable - RT consult - Trach in place- daily monitoring for secretions - Aggressive suctioning multiple times a day per respiratory therapist if secretions are thickened - Scopolamine 1 patch TD Q3D [facility] - Duoneb 3ml INH RQ6H - Mucomyst 4ml INH RQ6H - Pulmonology consulted (Dr. Salgado) 3. Hypokalemia, chronic, resolved - Most recent K 3.7 on 07/05/18 - Replete as needed - Continue to monitor CMP q21 days 4. Urinary retention, chronic, stable - Tamsulosin 0.4mg daily - Finasteride 5 mg daily - Bethanechol chloride 50mg tid - Bladder scan up to 3x a week PRN to monitor residual urine - Urology consulted (Dr. Oropeza) 5. Coronary artery disease, chronic- LAD and RCA occlusion found at time of cardiac arrest in 05/2015 - s/p cardiac stents on 06/13/15 - ASA 81mg via PEG daily - Coreg 3.125mg via PEG BID - Rosuvastatin 2.5mg via PEG QHS 6. Sacral ulcer, resolved - Continue frequent turning, protective ointment, and daily skin checks - Wound care consulted 7. Urinary tract infection, recurrent, resolved - ID consulted (Drs. Armstrong, Win) - Afebrile, no leukocytosis - Off IV abx since 08/05/17 - [place] condom catheter - Bladder scan PRN to prevent urinary retention 8. Lower extremity edema, resolved - SCDs in place - B/l pressure ulcer boots IVF: not indicated, PEG tube feeds VTE ppx: Lovenox 40mg SC daily, SCDs and offloading boots GI ppx: Pepcid 20 mg via PEG daily Diet: via PEG Code status: full code Case discussed with Dr. Teresa Ames, PGY-1 <Jeison Moore - Last Filed: 08/03/18 16:47> Objective - Vital Signs/Intake and Output Vital Signs (last 24 hours): Temp Pulse Resp BP Pulse Ox 98.2 F 68 18 111/72 100 08/03/18 16:00 08/03/18 16:00 08/03/18 16:00 08/03/18 16:00 08/03/18 16:00 Intake and Output: 08/03/18 08/03/18 06:59 18:59 Intake Total 1800 900 Output Total 1000 600 Balance 800 300 - Medications Medications: Current Medications Acetylcysteine (Acetylcysteine 20%) 4 ml INH RQ6 [facility] Last Admin: 08/03/18 13:39 Dose: Not Given Albuterol/Ipratropium (Duoneb 3 Mg/0.5 Mg (3 Ml) Ud) 3 ml INH RQ6 [facility] Last Admin: 08/03/18 13:39 Dose: Not Given Aspirin (Aspirin Chewable) 81 mg PEG DAILY [facility] Last Admin: 08/03/18 09:40 Dose: 81 mg Bethanechol Chloride (Urecholine) 50 mg PEG BID [facility] Last Admin: 08/03/18 09:40 Dose: 50 mg Carvedilol (Coreg) 3.125 mg PEG BID [facility] Last Admin: 08/03/18 09:40 Dose: 3.125 mg Clopidogrel Bisulfate (Plavix) 75 mg PO DAILY [facility] Last Admin: 08/03/18 09:40 Dose: 75 mg Enoxaparin Sodium (Lovenox) 40 mg SC DAILY [facility] Last Admin: 08/03/18 09:39 Dose: 40 mg Famotidine (Pepcid) 20 mg PEG DAILY [facility] Last Admin: 08/03/18 09:40 Dose: 20 mg Finasteride (Proscar) 5 mg PEG DAILY [facility] Last Admin: 08/03/18 09:40 Dose: 5 mg Levetiracetam (Keppra) 500 mg PO BID [facility] Last Admin: 08/03/18 09:52 Dose: 500 mg Rosuvastatin Calcium (Crestor) 5 mg PEG HS [facility] Last Admin: 08/02/18 21:38 Dose: 5 mg Scopolamine (Transderm-Scop) 1 patch TD Q3D [facility] Last Admin: 08/01/18 17:35 Dose: 1 patch Tamsulosin HCl (Flomax) 0.4 mg PEG DAILY [facility] Last Admin: 08/03/18 09:40 Dose: 0.4 mg - Labs Labs: 07/28/18 11:12 07/27/18 11:17 PT 10.6 SECONDS (9.7-12.2) 11/24/15 14:10 INR 1.0 11/24/15 14:10 APTT 25 SECONDS (21-34) 11/24/15 14:10 Attending/Attestation - Attestation I have personally seen and examined this patient.: Yes I have fully participated in the care of the patient.: Yes I have reviewed all pertinent clinical information, including history, physical exam and plan: Yes
[2018-08-03] MEDS: Enoxaparin 40 mg Syringe SC SCH (09:39)
[2018-08-03] MEDS: levETIRAcetam 100 mg/ml (5ml) Oral Syringe PO SCH ×2 (09:52→17:54)
[2018-08-04] MEDS: Albuterol-Ipratrop 3 mg / 0.5 (3 ml) UD INH SCH ×4 (01:23→19:43)
[2018-08-04] MEDS: Acetylcysteine 20% Inhal Soln (4ml) INH SCH ×4 (01:23→19:43)
[2018-08-04] MEDS: Enoxaparin 40 mg Syringe SC SCH (09:01)
[2018-08-04] MEDS: levETIRAcetam 100 mg/ml (5ml) Oral Syringe PO SCH ×2 (09:02→17:32)
[2018-08-05] MEDS: Acetylcysteine 20% Inhal Soln (4ml) INH SCH ×4 (01:40→19:20)
[2018-08-05] MEDS: Albuterol-Ipratrop 3 mg / 0.5 (3 ml) UD INH SCH ×4 (01:41→19:20)
--- NOTE | 2018-08-05 07:38 | CP.PCM.PN ---
<Mino Ames - Last Filed: 08/05/18 16:09> Subjective - Date & Time of Evaluation Date of Evaluation: 08/05/18 Time of Evaluation: 07:36 - Subjective Subjective: PGY-[address] Moore Patient was seen and examined at bedside this AM. No acute overnight events reported. Catheter in place and draining adequately. Trach in place and functioning appropriately. Feeding with GT tolerated well. SCDs are in place b/ l. No sacral ulcers appreciated. 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 Unable to obtain ROS due to physical condition. Objective - Vital Signs/Intake and Output Vital Signs (last 24 hours): Temp Pulse Resp BP Pulse Ox 97.7 F 71 20 102/69 98 08/04/18 23:37 08/04/18 23:37 08/04/18 23:37 08/04/18 23:37 08/04/18 23:37 Intake and Output: 08/05/18 08/05/18 06:59 18:59 Intake Total 900 400 Output Total 550 300 Balance 350 100 - Medications Medications: Current Medications Acetylcysteine (Acetylcysteine 20%) 4 ml INH RQ6 [facility] Last Admin: 08/05/18 01:40 Dose: 4 ml Albuterol/Ipratropium (Duoneb 3 Mg/0.5 Mg (3 Ml) Ud) 3 ml INH RQ6 [facility] Last Admin: 08/05/18 01:41 Dose: 3 ml Aspirin (Aspirin Chewable) 81 mg PEG DAILY [facility] Last Admin: 08/04/18 09:02 Dose: 81 mg Bethanechol Chloride (Urecholine) 50 mg PEG BID [facility] Last Admin: 08/04/18 17:31 Dose: 50 mg Carvedilol (Coreg) 3.125 mg PEG BID [facility] Last Admin: 08/04/18 17:34 Dose: 3.125 mg Clopidogrel Bisulfate (Plavix) 75 mg PO DAILY [facility] Last Admin: 08/04/18 09:02 Dose: 75 mg Enoxaparin Sodium (Lovenox) 40 mg SC DAILY [facility] Last Admin: 08/04/18 09:01 Dose: 40 mg Famotidine (Pepcid) 20 mg PEG DAILY [facility] Last Admin: 08/04/18 09:02 Dose: 20 mg Finasteride (Proscar) 5 mg PEG DAILY [facility] Last Admin: 08/04/18 09:02 Dose: 5 mg Levetiracetam (Keppra) 500 mg PO BID [facility] Last Admin: 08/04/18 17:32 Dose: 500 mg Rosuvastatin Calcium (Crestor) 5 mg PEG HS [facility] Last Admin: 08/04/18 22:09 Dose: 5 mg Scopolamine (Transderm-Scop) 1 patch TD Q3D [facility] Last Admin: 08/04/18 17:42 Dose: 1 patch Tamsulosin HCl (Flomax) 0.4 mg PEG DAILY [facility] Last Admin: 08/04/18 09:02 Dose: 0.4 mg - Labs Labs: 07/28/18 11:12 07/27/18 11:17 PT 10.6 SECONDS (9.7-12.2) 11/24/15 14:10 INR 1.0 11/24/15 14:10 APTT 25 SECONDS (21-34) 11/24/15 14:10 - Constitutional Appears: No Acute Distress, Chronically Ill - Head Exam Head Exam: ATRAUMATIC, NORMAL INSPECTION, NORMOCEPHALIC - ENT Exam Additional comments: Trach collar dry/clean/intact - Cardiovascular Exam Cardiovascular Exam: REGULAR RHYTHM, +S1, +S2 - GI/Abdominal Exam GI & Abdominal Exam: Soft, Normal Bowel Sounds Additional comments: GT clean/dry/intact - Back Exam Back Exam: NORMAL INSPECTION - Skin Skin Exam: Dry, Intact, Normal Color, Warm Assessment and Plan - Assessment and Plan (Free Text) Assessment: 67 yo Greek M who suffered an anoxic brain injury after a cardiac arrest in 2014. At the time, he was found to have an intracranial hemorrhage and occlusion of the RCA and LAD. He is now nonverbal and only responds to painful stimuli. Patient's family is uncooperative with placement of patient-originally wanted return to [place]. Plan: 1. 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 Respiratory failure, chronic, stable - RT consult - Trach in place- daily monitoring for secretions - Aggressive suctioning multiple times a day per respiratory therapist if secretions are thickened - Scopolamine 1 patch TD Q3D [facility] - Duoneb 3ml INH RQ6H - Mucomyst 4ml INH RQ6H - Pulmonology consulted (Dr. Salgado) 3. Hypokalemia, chronic, resolved - Most recent K 3.7 on 07/05/18 - Replete as needed - Continue to monitor CMP q21 days 4. Urinary retention, chronic, stable - Tamsulosin 0.4mg daily - Finasteride 5 mg daily - Bethanechol chloride 50mg tid - Bladder scan up to 3x a week PRN to monitor residual urine - Urology consulted (Dr. Oropeza) 5. Coronary artery disease, chronic- LAD and RCA occlusion found at time of cardiac arrest in 05/2015 - s/p cardiac stents on 06/13/15 - ASA 81mg via PEG daily - Coreg 3.125mg via PEG BID - Rosuvastatin 2.5mg via PEG QHS 6. Sacral ulcer, resolved - Continue frequent turning, protective ointment, and daily skin checks - Wound care consulted 7. Urinary tract infection, recurrent, resolved - ID consulted (Drs. Armstrong, Win) - Afebrile, no leukocytosis - Off IV abx since 08/05/17 - [place] condom catheter - Bladder scan PRN to prevent urinary retention 8. Lower extremity edema, resolved - SCDs in place - B/l pressure ulcer boots IVF: not indicated, PEG tube feeds VTE ppx: Lovenox 40mg SC daily, SCDs and offloading boots GI ppx: Pepcid 20 mg via PEG daily Diet: via PEG Code status: full code Case discussed with Dr. Teresa Ames, PGY-1 <Jeison Moore - Last Filed: 08/08/18 15:33> Objective - Vital Signs/Intake and Output Vital Signs (last 24 hours): Temp Pulse Resp BP Pulse Ox 99.3 F 72 23 114/72 100 08/08/18 08:00 08/08/18 10:00 08/08/18 08:00 08/08/18 10:00 08/08/18 08:00 Intake and Output: 08/08/18 08/08/18 06:59 18:59 Intake Total 1800 900 Output Total 1100 400 Balance 700 500 - Medications Medications: Current Medications Acetylcysteine (Acetylcysteine 20%) 4 ml INH RQ6 [facility] Last Admin: 08/08/18 13:04 Dose: Not Given Aspirin (Aspirin Chewable) 81 mg PEG DAILY [facility] Last Admin: 08/08/18 10:32 Dose: 81 mg Bethanechol Chloride (Urecholine) 50 mg PEG BID [facility] Last Admin: 08/08/18 10:33 Dose: 50 mg Carvedilol (Coreg) 3.125 mg PEG BID [facility] Last Admin: 08/08/18 10:32 Dose: 3.125 mg Clopidogrel Bisulfate (Plavix) 75 mg PO DAILY [facility] Last Admin: 08/08/18 10:32 Dose: 75 mg Enoxaparin Sodium (Lovenox) 40 mg SC DAILY [facility] Last Admin: 08/08/18 10:32 Dose: 40 mg Famotidine (Pepcid) 20 mg PEG DAILY [facility] Last Admin: 08/08/18 10:35 Dose: 20 mg Finasteride (Proscar) 5 mg PEG DAILY [facility] Last Admin: 08/08/18 10:33 Dose: 5 mg Levetiracetam (Keppra) 500 mg PO BID [facility] Last Admin: 08/08/18 10:31 Dose: 500 mg Rosuvastatin Calcium (Crestor) 5 mg PEG HS [facility] Last Admin: 08/07/18 21:41 Dose: 5 mg Scopolamine (Transderm-Scop) 1 patch TD Q3D [facility] Last Admin: 08/07/18 17:41 Dose: 1 patch Tamsulosin HCl (Flomax) 0.4 mg PEG DAILY [facility] Last Admin: 08/08/18 10:32 Dose: 0.4 mg - Labs Labs: 07/28/18 11:12 07/27/18 11:17 PT 10.6 SECONDS (9.7-12.2) 11/24/15 14:10 INR 1.0 11/24/15 14:10 APTT 25 SECONDS (21-34) 11/24/15 14:10 Attending/Attestation - Attestation I have personally seen and examined this patient.: No I have fully participated in the care of the patient.: Yes I have reviewed all pertinent clinical information, including history, physical exam and plan: Yes
[2018-08-05] MEDS: levETIRAcetam 100 mg/ml (5ml) Oral Syringe PO SCH ×2 (12:32→17:33)
[2018-08-05] MEDS: Enoxaparin 40 mg Syringe SC SCH (12:33)
[2018-08-06] MEDS: Albuterol-Ipratrop 3 mg / 0.5 (3 ml) UD INH SCH ×4 (01:35→19:32)
[2018-08-06] MEDS: Acetylcysteine 20% Inhal Soln (4ml) INH SCH ×4 (01:35→19:32)
[2018-08-06] MEDS: Enoxaparin 40 mg Syringe SC SCH (11:16)
[2018-08-06] MEDS: levETIRAcetam 100 mg/ml (5ml) Oral Syringe PO SCH ×2 (11:16→17:23)
[2018-08-07] MEDS: Acetylcysteine 20% Inhal Soln (4ml) INH SCH ×4 (01:48→19:57)
[2018-08-07] MEDS: Albuterol-Ipratrop 3 mg / 0.5 (3 ml) UD INH SCH ×4 (01:48→19:57)
[2018-08-07] MEDS: levETIRAcetam 100 mg/ml (5ml) Oral Syringe PO SCH ×2 (09:25→17:44)
[2018-08-07] MEDS: Enoxaparin 40 mg Syringe SC SCH (09:26)
[2018-08-08] MEDS: Albuterol-Ipratrop 3 mg / 0.5 (3 ml) UD INH SCH ×2 (02:30→07:29)
[2018-08-08] MEDS: Acetylcysteine 20% Inhal Soln (4ml) INH SCH ×4 (02:30→19:24)
[2018-08-08] MEDS: levETIRAcetam 100 mg/ml (5ml) Oral Syringe PO SCH ×2 (10:31→17:22)
[2018-08-08] MEDS: Enoxaparin 40 mg Syringe SC SCH (10:32)
[2018-08-09 00:06] VITALS: BP 111/75; PULSE 65; RESP 20; TEMP 98.5; O2SAT 98
[2018-08-09] MEDS: Acetylcysteine 20% Inhal Soln (4ml) INH SCH (07:45)
[2018-08-09] MEDS: Enoxaparin 40 mg Syringe SC SCH (09:16)
--- NOTE | 2018-08-09 09:17 | CP.PCM.DIS ---
<KwakuMino - Last Filed: 08/09/18 17:30> Provider - Provider Date of Admission: 06/13/15 21:05 Attending physician: Jeison Moore MD Consults: 06/13/15 23:24 Physician Consult Routine Comment: Consulting Provider: Karen Canales Physician Instructions: Reason For Exam: V Fib 06/14/15 06:49 Nursing Referral for Wound Care Routine Comment: Physician Instructions: Reason For Exam: keep headend elevation 15 deg 06/14/15 14:38 Palliative Care Consult Routine Comment: Consulting Provider: Renita Leblanc Physician Instructions: Reason For Exam: anoxic brain inj. 06/18/15 13:31 Physician Consult Routine Comment: Consulting Provider: Blair Chan Physician Instructions: Reason For Exam: Trach and PEG eval 06/27/15 11:26 Neurology Consult Routine Comment: Consulting Provider: Dennis Garcia Physician Instructions: Reason For Exam: questionable brain 07/16/16 14:43 Wound Care [Nursing Referral for Wound Care] Routine Comment: Physician Instructions: Reason For Exam: sacral wound 08/27/16 16:36 Wound Care [Nursing Referral for Wound Care] Routine Comment: Physician Instructions: Reason For Exam: RECHECK SACRAL REGION 11/01/15 13:18 Nursing Referral for Wound Care Routine Comment: Physician Instructions: Reason For Exam: re-check sacrum Time Spent in preparation of Discharge (in minutes): 40 Hospital Course - Lab Results Lab Results: Micro Results 08/08/17 Unknown Urine Urine Culture - Final No Growth (<1,000 CFU/ML) 07/23/17 06:00 Urine Urine Culture - Final Yeast Species 07/16/17 20:00 Blood-Venous Blood Culture - Final NO GROWTH AFTER 5 DAYS 07/16/17 20:00 Blood-Venous Gram Stain - Final TEST NOT PERFORMED 07/16/17 20:00 Blood-Venous Blood Culture - Final NO GROWTH AFTER 5 DAYS 07/16/17 20:00 Blood-Venous Gram Stain - Final TEST NOT PERFORMED 07/12/17 07:00 Blood Blood Culture - Final NO GROWTH AFTER 5 DAYS 07/12/17 07:00 Blood Gram Stain - Final 07/12/17 06:36 Blood Blood Culture - Final Stenotrophomonas Maltophilia 07/12/17 06:36 Blood Gram Stain - Final 07/12/17 04:49 Urine,Yoo Urine Culture - Final Proteus Mirabilis 05/28/17 10:14 Urine Urine Culture - Final Proteus Mirabilis 04/26/17 16:00 Stool Stool Culture - Final NO SALMONELLA, SHIGELLA OR CAMPYLOBACTER ISOLATED. 04/26/17 15:30 Rectum Ova and Parasite Concentrate Exam - Final 04/11/17 15:36 Trachasp Gram Stain - Final 04/11/17 15:36 Trachasp Sputum Culture - Final Pseudomonas Aeruginosa Proteus Mirabilis 04/06/17 11:57 Blood-Venous Blood Culture - Final NO GROWTH AFTER 5 DAYS 04/06/17 11:57 Blood-Venous Gram Stain - Final TEST NOT PERFORMED 04/06/17 09:40 Blood-Venous Blood Culture - Final NO GROWTH AFTER 5 DAYS 04/06/17 09:40 Blood-Venous Gram Stain - Final TEST NOT PERFORMED 04/06/17 15:00 Urine,Clean Catch Urine Culture - Final Proteus Mirabilis 03/26/17 09:30 Urine,Clean Catch Urine Culture - Final No Growth (<1,000 CFU/ML) 03/20/17 16:30 Blood Blood Culture - Final NO GROWTH AFTER 5 DAYS 03/20/17 16:30 Blood Gram Stain - Final TEST NOT PERFORMED 03/20/17 17:00 Blood Blood Culture - Final NO GROWTH AFTER 5 DAYS 03/20/17 17:00 Blood Gram Stain - Final TEST NOT PERFORMED 03/17/17 23:06 Urine Urine Culture - Final Proteus Mirabilis 12/13/16 11:21 Urine Urine Culture - Final Proteus Mirabilis 12/03/16 12:37 Urine,Yoo Urine Culture - Final Klebsiella Pneumoniae Ssp Pneu 10/15/16 14:15 Blood-Venous Blood Culture - Final NO GROWTH AFTER 5 DAYS 10/15/16 14:15 Blood-Venous Gram Stain - Final TEST NOT PERFORMED 10/15/16 13:53 Blood-Venous Blood Culture - Final NO GROWTH AFTER 5 DAYS 10/15/16 13:53 Blood-Venous Gram Stain - Final TEST NOT PERFORMED 10/09/16 16:30 Blood-Venous Blood Culture - Final NO GROWTH AFTER 5 DAYS 10/09/16 16:30 Blood-Venous Gram Stain - Final TEST NOT PERFORMED 10/09/16 17:20 Blood-Venous S.aureus & Coag-Neg Staph PNA FISH - Final 10/09/16 17:20 Blood-Venous Blood Culture - Final Coagulase Neg Staphylococcus 10/09/16 17:20 Blood-Venous Gram Stain - Final 10/07/16 17:00 Blood-Venous Blood Culture - Final NO GROWTH AFTER 5 DAYS 10/07/16 17:00 Blood-Venous Gram Stain - Final TEST NOT PERFORMED 10/07/16 Unknown Blood-Venous S.aureus & Coag-Neg Staph PNA FISH - Final 10/07/16 Unknown Blood-Venous Blood Culture - Final Coagulase Neg Staphylococcus 10/07/16 Unknown Blood-Venous Gram Stain - Final 10/03/16 Unknown Urine,Yoo Urine Culture - Final Proteus Mirabilis 09/09/16 06:00 Urine Urine Culture - Final Gram Negative Lyle 08/04/16 Unknown Urine,Catheterized Urine Culture - Final Proteus Mirabilis 08/01/16 16:00 Urine,Yoo Urine Culture - Final Proteus Mirabilis 07/16/16 11:24 Trachasp Gram Stain - Final 07/16/16 11:24 Trachasp Sputum Culture - Final Pseudomonas Aeruginosa Proteus Mirabilis 07/02/16 23:00 Blood-Venous Blood Culture - Final NO GROWTH AFTER 5 DAYS 07/02/16 23:00 Blood-Venous Gram Stain - Final TEST NOT PERFORMED 07/02/16 22:30 Blood-Venous Blood Culture - Final NO GROWTH AFTER 5 DAYS 07/02/16 22:30 Blood-Venous Gram Stain - Final TEST NOT PERFORMED 07/04/16 11:30 Urine,Yoo Urine Culture - Final Proteus Mirabilis 07/03/16 00:01 Trachasp Gram Stain - Final 07/03/16 00:01 Trachasp Sputum Culture - Final Pseudomonas Aeruginosa Klebsiella Pneumoniae Ssp Pneu 07/02/16 Unknown Urine,Yoo Urine Culture - Final MULTIPLE SPECIES. SUGGEST REPEAT SPECIMEN. 06/09/16 19:00 Blood Blood Culture - Final NO GROWTH AFTER 5 DAYS 06/09/16 19:00 Blood Gram Stain - Final TEST NOT PERFORMED 06/09/16 19:00 Blood Blood Culture - Final NO GROWTH AFTER 5 DAYS 06/09/16 19:00 Blood Gram Stain - Final TEST NOT PERFORMED 06/09/16 19:00 Urine Urine Culture - Final 10-50,000 CFU/ML. MULTIPLE SPECIES. PROBABLE CONTAMINATION. 04/14/16 19:25 Blood Blood Culture - Final NO GROWTH AFTER 5 DAYS 04/14/16 19:25 Blood Gram Stain - Final 04/14/16 20:00 Blood Blood Culture - Final NO GROWTH AFTER 5 DAYS 04/14/16 20:00 Blood Gram Stain - Final TEST NOT PERFORMED 04/16/16 Unknown Urine,Yoo Urine Culture - Final Pseudomonas Aeruginosa Enterococcus Faecalis 04/16/16 Unknown Sputum Gram Stain - Final 04/16/16 Unknown Sputum Sputum Culture - Final Pseudomonas Aeruginosa 04/15/16 Unknown Sputum Gram Stain - Final 04/15/16 Unknown Sputum Sputum Culture - Final Pseudomonas Aeruginosa 04/14/16 21:50 Urine Urine Culture - Final Pseudomonas Aeruginosa Enterococcus Faecalis 01/02/16 Unknown Urine,Clean Catch Urine Culture - Final Proteus Mirabilis 12/23/15 15:00 Urine,Yoo Urine Culture - Final No Growth (<1,000 CFU/ML) 12/19/15 15:00 Urine,Yoo Urine Culture - Final Proteus Mirabilis 12/16/15 13:00 Urine,Yoo Urine Culture - Final Proteus Mirabilis 12/13/15 13:00 Urine Urine Culture - Final Proteus Mirabilis 12/06/15 Unknown Sputum Gram Stain - Final 12/06/15 Unknown Sputum Sputum Culture - Final Pseudomonas Aeruginosa 11/27/15 15:00 Bronchial Washings Bronchial Culture - Final Pseudomonas Aeruginosa 11/22/15 16:01 Urine,Yoo Urine Culture - Final Pseudomonas Aeruginosa 11/16/15 08:30 Urine,Yoo Urine Culture - Final Klebsiella Pneumoniae Ssp Pneu 09/17/15 19:20 Urine,Yoo Urine Culture - Final No Growth (<1,000 CFU/ML) 09/11/15 Unknown Urine,Yoo Urine Culture - Final Pseudomonas Aeruginosa 07/28/15 22:05 Trachasp Gram Stain - Final 07/28/15 22:05 Trachasp Sputum Culture - Final Pseudomonas Aeruginosa 07/28/15 22:05 Urine,Yoo Urine Culture - Final No Growth (<1,000 CFU/ML) 07/21/15 16:00 Urine Urine Culture - Final Beta Hemolytic Strep Group B 07/18/15 16:59 Sputum Gram Stain - Final 07/18/15 16:59 Sputum Sputum Culture - Final Pseudomonas Aeruginosa 07/18/15 Unknown Urine,Catheterized Urine Culture - Final No Growth (<1,000 CFU/ML) 07/12/15 Unknown Urine,Yoo Urine Culture - Final Pseudomonas Aeruginosa 06/14/15 14:55 Blood Gram Stain - Final 06/14/15 14:55 Blood Blood Culture - Final NO GROWTH AFTER 5 DAYS 06/14/15 15:20 Blood Gram Stain - Final 06/14/15 15:20 Blood Blood Culture - Final NO GROWTH AFTER 5 DAYS 06/14/15 Unknown Nose MRSA Culture (Admit) - Final MRSA NOT DETECTED 06/14/15 Unknown Urine,Yoo Urine Culture - Final No Growth (<1,000 CFU/ML) Most Recent Lab Values WBC 10.8 K/uL (4.8-10.8) 07/28/18 11:12 RBC 3.97 Mil/uL (4.40-5.90) L 07/28/18 11:12 Hgb 11.7 g/dL (12.0-18.0) L 07/28/18 11:12 Hct 35.2 % (35.0-51.0) 07/28/18 11:12 MCV 88.6 fL (80.0-94.0) 07/28/18 11:12 MCH 29.4 pg (27.0-31.0) 07/28/18 11:12 MCHC 33.2 g/dL (33.0-37.0) 07/28/18 11:12 RDW 15.4 % (11.5-14.5) H 07/28/18 11:12 Plt Count 257 K/uL (130-400) 07/28/18 11:12 MPV 9.1 fL (7.2-11.7) 07/28/18 11:12 Neut % (Auto) 65.8 % (50.0-75.0) 07/28/18 11:12 Lymph % (Auto) 22.9 % (20.0-40.0) 07/28/18 11:12 Fleming % (Auto) 7.0 % (0.0-10.0) 07/28/18 11:12 Eos % (Auto) 3.8 % (0.0-4.0) 07/28/18 11:12 Baso % (Auto) 0.5 % (0.0-2.0) 07/28/18 11:12 Neut # (Auto) 7.1 K/uL (1.8-7.0) H 07/28/18 11:12 Lymph # (Auto) 2.5 K/uL (1.0-4.3) 07/28/18 11:12 Fleming # (Auto) 0.8 K/uL (0.0-0.8) 07/28/18 11:12 Eos # (Auto) 0.4 K/uL (0.0-0.7) 07/28/18 11:12 Baso # (Auto) 0.0 K/uL (0.0-0.2) 07/28/18 11:12 Reactive Lymphs % 1 % (0-0) H 06/23/15 07:28 Neutrophils % (Manual) 86 % (50-75) H 07/21/17 07:36 Band Neutrophils % 1 % (0-2) 07/21/17 07:36 Lymphocytes % (Manual) 5 % (20-40) L 07/21/17 07:36 Monocytes % (Manual) 6 % (0-10) 07/21/17 07:36 Basophils % (Manual) 1 % (0-2) 12/26/15 08:10 Eosinophils % (Manual) 2 % (0-4) 07/21/17 07:36 Myelocytes % 1 % (0-0) H 04/20/17 07:11 Differential Comment 07/25/17 06:59 Toxic Granulation Present 07/21/17 07:36 Platelet Estimate Normal (NORMAL) 07/21/17 07:36 Plt Clumps, EDTA Present 04/13/17 06:54 Large Platelets Present 04/20/17 07:11 Giant Platelets Present 04/13/17 06:54 RBC Morphology Normal 12/24/15 07:18 Basophilic Stippling Slight 08/18/15 07:58 Target Cells Slight 09/14/15 07:59 Tear Drop Cells Slight 07/14/15 07:30 Ovalocytes Slight 08/23/15 13:43 Polychromasia Slight 04/20/17 07:11 Hypochromasia (manual) Slight 07/21/17 07:36 Lily Cells Slight 08/23/15 13:43 Poikilocytosis (manual Slight 07/21/17 07:36 Anisocytosis (manual) Slight 07/21/17 07:36 Schistocytes Slight 12/21/15 07:06 PT 10.6 SECONDS (9.7-12.2) 11/24/15 14:10 INR 1.0 11/24/15 14:10 APTT 25 SECONDS (21-34) 11/24/15 14:10 Plt Function Assay 76 K/uL 06/20/15 07:35 Puncture Site Rr 07/03/16 09:23 pCO2 39 mm/Hg (35-45) 07/03/16 09:23 pO2 88 mm/Hg (80-100) 07/03/16 09:23 HCO3 27.8 mmol/L (21-28) 07/03/16 09:23 ABG pH 7.46 (7.35-7.45) H 07/03/16 09:23 ABG Total CO2 28.9 mmol/L (22-28) H 07/03/16 09:23 ABG O2 Saturation 98.7 % (95-98) H 07/03/16 09:23 ABG Base Excess 3.7 mmol/L (-2.0-3.0) H 07/03/16 09:23 Yimi Test Pos 07/03/16 09:23 ABG Potassium 3.6 mmol/L (3.6-5.2) 07/03/16 09:23 ABG Lactate 2.2 mmol/L (0.7-2.1) H 07/03/16 09:23 VBG pH 7.35 (7.32-7.43) 07/03/16 03:23 VBG pCO2 44 mmHg (40-60) 07/03/16 03:23 VBG HCO3 22.8 mmol/L 07/03/16 03:23 VBG O2 Sat (Calc) 57.4 % (40-65) 07/03/16 03:23 VBG Base Excess -1.5 mmol/L (0.0-2.0) L 07/03/16 03:23 VBG Lactate 8.8 mmol/L (0.7-2.1) H* 07/03/16 03:23 A-a O2 Difference 77.0 mm/Hg 07/03/16 09:23 Respiratory Index 0.9 07/03/16 09:23 Sodium 140.0 mmol/l (132-148) 07/03/16 09:23 Glucose 143 mg/dl (75-110) H 07/03/16 09:23 Mechanical Rate 16.000 06/21/15 05:18 Spontaneous Rate 21.000 10/13/15 12:35 Liter Flow 5.0 07/02/16 22:28 Tidal Volume 365.000 10/13/15 12:35 Pressure Support 8.000 10/13/15 12:35 FiO2 30.0 % 07/03/16 09:23 CPAP 5.000 10/13/15 12:35 Crit Value Called To Dr eckert 07/03/16 03:23 Crit Value Called By Yadira kelly 07/03/16 03:23 Crit Value Read Back Y 07/03/16 03:23 Blood Gas Notified Time 332 07/03/16 03:23 Sodium 144 mmol/L (132-148) 07/27/18 11:17 Potassium 3.8 mmol/L (3.6-5.2) 07/27/18 11:17 Chloride 102 mmol/L (98-107) 07/27/18 11:17 Carbon Dioxide 32 mmol/L (22-30) H 07/27/18 11:17 Anion Gap 14 (10-20) 07/27/18 11:17 BUN 11 mg/dL (9-20) 07/27/18 11:17 Creatinine 0.6 mg/dL (0.8-1.5) L 07/27/18 11:17 Est GFR ( Amer) > 60 07/27/18 11:17 Est GFR (Non-Af Amer) > 60 07/27/18 11:17 POC Glucose (mg/dL) 122 mg/dL (65-110) H 08/04/18 20:47 Random Glucose 118 mg/dL (75-110) H 07/27/18 11:17 Hemoglobin A1c 5.8 % (4.2-6.5) 01/01/17 08:14 Lactic Acid 5.8 mmol/L (0.7-2.1) H* 06/14/15 06:25 Calcium 8.9 mg/dl (8.6-10.4) 07/27/18 11:17 Phosphorus 3.4 mg/dL (2.5-4.5) 07/26/18 08:16 Magnesium 2.1 mg/dL (1.6-2.3) 07/26/18 08:16 Ammonia < 9 umol/L (9-33) L 06/18/15 09:56 Total Bilirubin 0.8 mg/dL (0.2-1.3) 07/26/18 08:16 Total Creatine Kinase 3027 U/L (55-170) H 06/14/15 12:38 AST 29 U/L (17-59) 07/26/18 08:16 ALT 40 U/L (21-72) 07/26/18 08:16 CK-MB (Mass) 20.6 ng/mL (0.0-3.38) H 06/14/15 12:38 Alkaline Phosphatase 112 U/L (38-126) 07/26/18 08:16 Troponin I 10.7000 ng/mL (0.00-0.120) H* 06/14/15 06:25 Troponin I, Quant 9.8200 ng/mL (0.00-0.120) H* 06/14/15 12:38 NT-Pro-B Natriuret Pep 938 pg/mL (0-900) H 06/13/15 21:05 Prealbumin 23.3 mg/dL (17.6-36.0) 07/24/16 07:40 Triglycerides 69 mg/dL (0-149) 06/13/15 21:05 Total Protein 8.2 g/dL (6.3-8.3) 07/26/18 08:16 Albumin 3.8 g/dL (3.5-5.0) 07/26/18 08:16 Cholesterol 184 mg/dL (0-199) 06/13/15 21:05 Globulin 4.4 gm/dL (2.2-3.9) H 07/26/18 08:16 Albumin/Globulin Ratio 0.9 (1.0-2.1) L 07/26/18 08:16 LDL Cholesterol Direct 128 mg/dL (0-129) 06/13/15 21:05 HDL Cholesterol 36 mg/dL (30-70) 06/13/15 21:05 Prolactin 21.5 ng/mL (3.7-17.9) H 06/15/15 06:48 Arterial Blood Potassium 3.6 mmol/L (3.6-5.2) 07/03/16 09:23 Urine Color Yellow (YELLOW) 08/08/17 06:41 Urine Clarity Hazy (Clear) 08/08/17 06:41 Urine pH 8.0 (5.0-8.0) 08/08/17 06:41 Ur Specific [place] 1.011 (1.003-1.030) 08/08/17 06:41 Urine Protein Negative mg/dL (NEGATIVE) 08/08/17 06:41 Urine Glucose (UA) Normal mg/dL (Normal) 08/08/17 06:41 Urine Ketones Negative mg/dL (NEGATIVE) 08/08/17 06:41 Urine Blood Negative (NEGATIVE) 08/08/17 06:41 Urine Nitrate Negative (NEGATIVE) 08/08/17 06:41 Urine Bilirubin Negative (NEGATIVE) 08/08/17 06:41 Urine Urobilinogen Normal mg/dL (0.2-1.0) 08/08/17 06:41 Ur Leukocyte Esterase Neg Elida/uL (Negative) 08/08/17 06:41 Urine WBC (Auto) 3 /hpf (0-5) 08/08/17 06:41 Urine RBC (Auto) 6 /hpf (0-3) H 08/08/17 06:41 Ur Transition Epith Cell 1 /hpf (0-3) 07/12/15 20:10 Ur Squamous Epith Cells < 1 /hpf (0-5) 08/08/17 06:41 Calcium Oxalate Crystal Few /hpf (<OCC) H 11/16/15 07:43 Calcium Phos Quita (Auto) Rare /hpf (<OCC) 07/31/16 21:06 Triple Phos Crystals Occ /hpf (<OCC) H 03/17/17 23:39 Amorphous Sediment Rare /ul (<OCC) H 12/13/16 11:43 Urine Bacteria Occ (<OCC) H 05/28/17 19:27 Hyaline Casts 0-2 /lpf (0-2) 08/08/17 06:41 Urine Mucus Few (NONE) H 07/21/15 14:29 Urine Yeast (Budding) Few /hpf (NEGATIVE) H 11/16/15 07:43 Ur Random Creatinine 116.0 mg/dL 08/02/16 14:35 U Random Total Protein 13.0 mg/dL (0.0-12.0) H 08/02/16 14:35 Stool Leukocytes, Qual Negative (NEGATIVE) 04/26/17 15:30 Amikacin Trough 5.8 mg/L (4.0-8.0) 07/18/17 07:34 Gentamicin Trough 1.9 ug/mL (0.0-0.9) H 07/14/16 11:03 Vancomycin Trough < 5.0 ug/mL (5.0-10.0) L 06/18/15 14:10 Phenytoin 4.2 ug/mL (10-20) L 07/19/16 13:53 Free Phenytoin <0.5 mg/L (1.0-2.0) L 07/14/16 11:03 C. difficile Ag & Toxin Negative (NEGATIVE) 07/24/17 06:00 Hepatitis A IgM Ab Negative (NEGATIVE) 07/11/15 07:31 Hep Bs Antigen Negative (NEGATIVE) 07/11/15 07:31 Hep B Core IgM Ab Negative (NEGATIVE) 07/11/15 07:31 Hepatitis C Antibody Negative (NEGATIVE) 07/11/15 07:31 Blood Type O POSITIVE 11/24/15 14:10 Antibody Screen Negative 11/24/15 14:10 - Hospital Course Hospital Course: CC: Code Heart Patient is a 64 yo M with unknown pmhx who was found unresponsive in driveway by EMS after fall that was witnessed by family. in the field, CPR was given, patient was in asystole and was shocked 3 times, given 1 dose of Epinephrine and started on an Amiodarone drip. In the ED, the patient was found to be in V Fib and was shocked once. He then converted to sinus tachy and given 5000 U of heparin and Versed. He was intubated and an NGT was placed. Afterwards, he was given 600 mg of Plavis and 325 of ASA> He was found to have a large gash on the R side of his head so he was taken for a Head CT, which showed on acute intracranial hemorrhage and then to the supervisor dental laboratory. From Patient's History obtained by [employer] from family: PMHx: unknown type of "heart trouble" that was diagnosed in [place] 15 years ago. no rx or therapy given at that time. he has not seen a physician in 15 years PSHx: Denied Soc: denied EtOH and tobacco Allergy: NKDA meds: none Hospital course: Due to this patient's extended admission, this is a brief summary of hospital course. Please refer to full medical record for complete details. During this patient's hospital course, numerous services (including Neurology, Cardiology, Surgery, Critical Care, Gastroenterology, Infectious Disease, Urology, Wound Care, Interventional Radiology) were consulted and care was coordinated among all teams. 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 As a result of anoxic brain injury, patient suffers from seizure disorder, which was assessed, monitored, and managed. Patient had tracheostomy and PEG tube placement. PEG tube was changed several times during the admission. Patient was initially on mechanical ventilator and successfully weened off. Patient also had several episodes of UTI during this admission, which were appropriately assessed, monitored, and managed. Patient had stable clinical course, with family and appropriate parties updated. Patient remains awake but unresponsive. Patient is medically stable for transfer to [facility]. Patient to continue to use a condom catheter in the [facility] facility. Patient to continue medications. 1.) Aspirin 81mg PEG daily 2.) Coreg 3.125mg PEG BID 3.) Lovenox 40mg SC daily 4.) Pepcid 20mg PEG daily 5.) Keppra 500mg PEG BID 6.) Crestor 2.5mg PEG HS 7.) Scopolamine 1 patch TS Q3D JOO 8.) Flomax 0.4mg PEG daily 9.) Finasteride 5mg PEG daily Patient is medically stable for discharge, per Dr. Chavis. He is to be transported by [facility] to [facility] for continued care. Patient to continue all home medications and treatments as prescribed. This is a summary of the patient's hospital course. Refer to full EMR for a complete record. Discharge Exam - Head Exam Head Exam: ATRAUMATIC, NORMAL INSPECTION, NORMOCEPHALIC - ENT Exam Additional comments: Trach collar dry/clean/intact - Cardiovascular Exam Cardiovascular Exam: REGULAR RHYTHM, +S1, +S2 - GI/Abdominal Exam GI & Abdominal Exam: Soft, Unremarkable. absent: Distended, Firm, Guarding, Organomegaly, Rigid Additional comments: GT clean/dry/intact - Back Exam Back exam: NORMAL INSPECTION - Neurological Exam Additional comments: Patient has hx of anonix brain injury in 2015 and is nonverbal, unresponsive at baseline - Skin Skin Exam: Dry, Intact, Normal Color, Warm Discharge Plan - Follow Up Plan Condition: CRITICAL Disposition: [facility] Instructions: Sudden Cardiac Arrest, Seizures, Adult (DC), Anoxic Brain Damage (DC) Additional Instructions: Patient is medically stable for discharge, per Dr. Chavis. He is to be transported by [facility] to [facility] for continued care. Patient to continue all home medications and treatments as prescribed. <Amandeep Chavis - Last Filed: 08/09/18 18:39> Provider - Provider Date of Admission: 06/13/15 21:05 Attending physician: Amandeep Chavis DO Consults: 06/13/15 23:24 Physician Consult Routine Comment: Consulting Provider: Karen Canales Physician Instructions: Reason For Exam: V Fib 06/14/15 06:49 Nursing Referral for Wound Care Routine Comment: Physician Instructions: Reason For Exam: keep headend elevation 15 deg 06/14/15 14:38 Palliative Care Consult Routine Comment: Consulting Provider: Renita Leblanc Physician Instructions: Reason For Exam: anoxic brain inj. 06/18/15 13:31 Physician Consult Routine Comment: Consulting Provider: Blair Chan Physician Instructions: Reason For Exam: Trach and PEG eval 06/27/15 11:26 Neurology Consult Routine Comment: Consulting Provider: Dennis Garcia Physician Instructions: Reason For Exam: questionable brain 07/16/16 14:43 Wound Care [Nursing Referral for Wound Care] Routine Comment: Physician Instructions: Reason For Exam: sacral wound 08/27/16 16:36 Wound Care [Nursing Referral for Wound Care] Routine Comment: Physician Instructions: Reason For Exam: RECHECK SACRAL REGION 11/01/15 13:18 Nursing Referral for Wound Care Routine Comment: Physician Instructions: Reason For Exam: re-check sacrum Diagnosis - Discharge Diagnosis (1) Prophylactic measure Status: Acute (2) Anoxic encephalopathy Status: Chronic (3) STEMI (ST elevation myocardial infarction) Status: Acute (4) Cardiac arrest Status: Acute (5) Seizures Status: Acute (6) Respiratory failure Status: Chronic Hospital Course - Lab Results Lab Results: Micro Results 08/08/17 Unknown Urine Urine Culture - Final No Growth (<1,000 CFU/ML) 07/23/17 06:00 Urine Urine Culture - Final Yeast Species 07/16/17 20:00 Blood-Venous Blood Culture - Final NO GROWTH AFTER 5 DAYS 07/16/17 20:00 Blood-Venous Gram Stain - Final TEST NOT PERFORMED 07/16/17 20:00 Blood-Venous Blood Culture - Final NO GROWTH AFTER 5 DAYS 07/16/17 20:00 Blood-Venous Gram Stain - Final TEST NOT PERFORMED 07/12/17 07:00 Blood Blood Culture - Final NO GROWTH AFTER 5 DAYS 07/12/17 07:00 Blood Gram Stain - Final 07/12/17 06:36 Blood Blood Culture - Final Stenotrophomonas Maltophilia 07/12/17 06:36 Blood Gram Stain - Final 07/12/17 04:49 Urine,Yoo Urine Culture - Final Proteus Mirabilis 05/28/17 10:14 Urine Urine Culture - Final Proteus Mirabilis 04/26/17 16:00 Stool Stool Culture - Final NO SALMONELLA, SHIGELLA OR CAMPYLOBACTER ISOLATED. 04/26/17 15:30 Rectum Ova and Parasite Concentrate Exam - Final 04/11/17 15:36 Trachasp Gram Stain - Final 04/11/17 15:36 Trachasp Sputum Culture - Final Pseudomonas Aeruginosa Proteus Mirabilis 04/06/17 11:57 Blood-Venous Blood Culture - Final NO GROWTH AFTER 5 DAYS 04/06/17 11:57 Blood-Venous Gram Stain - Final TEST NOT PERFORMED 04/06/17 09:40 Blood-Venous Blood Culture - Final NO GROWTH AFTER 5 DAYS 04/06/17 09:40 Blood-Venous Gram Stain - Final TEST NOT PERFORMED 04/06/17 15:00 Urine,Clean Catch Urine Culture - Final Proteus Mirabilis 03/26/17 09:30 Urine,Clean Catch Urine Culture - Final No Growth (<1,000 CFU/ML) 03/20/17 16:30 Blood Blood Culture - Final NO GROWTH AFTER 5 DAYS 03/20/17 16:30 Blood Gram Stain - Final TEST NOT PERFORMED 03/20/17 17:00 Blood Blood Culture - Final NO GROWTH AFTER 5 DAYS 03/20/17 17:00 Blood Gram Stain - Final TEST NOT PERFORMED 03/17/17 23:06 Urine Urine Culture - Final Proteus Mirabilis 12/13/16 11:21 Urine Urine Culture - Final Proteus Mirabilis 12/03/16 12:37 Urine,Yoo Urine Culture - Final Klebsiella Pneumoniae Ssp Pneu 10/15/16 14:15 Blood-Venous Blood Culture - Final NO GROWTH AFTER 5 DAYS 10/15/16 14:15 Blood-Venous Gram Stain - Final TEST NOT PERFORMED 10/15/16 13:53 Blood-Venous Blood Culture - Final NO GROWTH AFTER 5 DAYS 10/15/16 13:53 Blood-Venous Gram Stain - Final TEST NOT PERFORMED 10/09/16 16:30 Blood-Venous Blood Culture - Final NO GROWTH AFTER 5 DAYS 10/09/16 16:30 Blood-Venous Gram Stain - Final TEST NOT PERFORMED 10/09/16 17:20 Blood-Venous S.aureus & Coag-Neg Staph PNA FISH - Final 10/09/16 17:20 Blood-Venous Blood Culture - Final Coagulase Neg Staphylococcus 10/09/16 17:20 Blood-Venous Gram Stain - Final 10/07/16 17:00 Blood-Venous Blood Culture - Final NO GROWTH AFTER 5 DAYS 10/07/16 17:00 Blood-Venous Gram Stain - Final TEST NOT PERFORMED 10/07/16 Unknown Blood-Venous S.aureus & Coag-Neg Staph PNA FISH - Final 10/07/16 Unknown Blood-Venous Blood Culture - Final Coagulase Neg Staphylococcus 10/07/16 Unknown Blood-Venous Gram Stain - Final 10/03/16 Unknown Urine,Yoo Urine Culture - Final Proteus Mirabilis 09/09/16 06:00 Urine Urine Culture - Final Gram Negative Lyle 08/04/16 Unknown Urine,Catheterized Urine Culture - Final Proteus Mirabilis 08/01/16 16:00 Urine,Yoo Urine Culture - Final Proteus Mirabilis 07/16/16 11:24 Trachasp Gram Stain - Final 07/16/16 11:24 Trachasp Sputum Culture - Final Pseudomonas Aeruginosa Proteus Mirabilis 07/02/16 23:00 Blood-Venous Blood Culture - Final NO GROWTH AFTER 5 DAYS 07/02/16 23:00 Blood-Venous Gram Stain - Final TEST NOT PERFORMED 07/02/16 22:30 Blood-Venous Blood Culture - Final NO GROWTH AFTER 5 DAYS 07/02/16 22:30 Blood-Venous Gram Stain - Final TEST NOT PERFORMED 07/04/16 11:30 Urine,Yoo Urine Culture - Final Proteus Mirabilis 07/03/16 00:01 Trachasp Gram Stain - Final 07/03/16 00:01 Trachasp Sputum Culture - Final Pseudomonas Aeruginosa Klebsiella Pneumoniae Ssp Pneu 07/02/16 Unknown Urine,Yoo Urine Culture - Final MULTIPLE SPECIES. SUGGEST REPEAT SPECIMEN. 06/09/16 19:00 Blood Blood Culture - Final NO GROWTH AFTER 5 DAYS 06/09/16 19:00 Blood Gram Stain - Final TEST NOT PERFORMED 06/09/16 19:00 Blood Blood Culture - Final NO GROWTH AFTER 5 DAYS 06/09/16 19:00 Blood Gram Stain - Final TEST NOT PERFORMED 06/09/16 19:00 Urine Urine Culture - Final 10-50,000 CFU/ML. MULTIPLE SPECIES. PROBABLE CONTAMINATION. 04/14/16 19:25 Blood Blood Culture - Final NO GROWTH AFTER 5 DAYS 04/14/16 19:25 Blood Gram Stain - Final 04/14/16 20:00 Blood Blood Culture - Final NO GROWTH AFTER 5 DAYS 04/14/16 20:00 Blood Gram Stain - Final TEST NOT PERFORMED 04/16/16 Unknown Urine,Yoo Urine Culture - Final Pseudomonas Aeruginosa Enterococcus Faecalis 04/16/16 Unknown Sputum Gram Stain - Final 04/16/16 Unknown Sputum Sputum Culture - Final Pseudomonas Aeruginosa 04/15/16 Unknown Sputum Gram Stain - Final 04/15/16 Unknown Sputum Sputum Culture - Final Pseudomonas Aeruginosa 04/14/16 21:50 Urine Urine Culture - Final Pseudomonas Aeruginosa Enterococcus Faecalis 01/02/16 Unknown Urine,Clean Catch Urine Culture - Final Proteus Mirabilis 12/23/15 15:00 Urine,Yoo Urine Culture - Final No Growth (<1,000 CFU/ML) 12/19/15 15:00 Urine,Yoo Urine Culture - Final Proteus Mirabilis 12/16/15 13:00 Urine,Yoo Urine Culture - Final Proteus Mirabilis 12/13/15 13:00 Urine Urine Culture - Final Proteus Mirabilis 12/06/15 Unknown Sputum Gram Stain - Final 12/06/15 Unknown Sputum Sputum Culture - Final Pseudomonas Aeruginosa 11/27/15 15:00 Bronchial Washings Bronchial Culture - Final Pseudomonas Aeruginosa 11/22/15 16:01 Urine,Yoo Urine Culture - Final Pseudomonas Aeruginosa 11/16/15 08:30 Urine,Yoo Urine Culture - Final Klebsiella Pneumoniae Ssp Pneu 09/17/15 19:20 Urine,Yoo Urine Culture - Final No Growth (<1,000 CFU/ML) 09/11/15 Unknown Urine,Yoo Urine Culture - Final Pseudomonas Aeruginosa 07/28/15 22:05 Trachasp Gram Stain - Final 07/28/15 22:05 Trachasp Sputum Culture - Final Pseudomonas Aeruginosa 07/28/15 22:05 Urine,Yoo Urine Culture - Final No Growth (<1,000 CFU/ML) 07/21/15 16:00 Urine Urine Culture - Final Beta Hemolytic Strep Group B 07/18/15 16:59 Sputum Gram Stain - Final 07/18/15 16:59 Sputum Sputum Culture - Final Pseudomonas Aeruginosa 07/18/15 Unknown Urine,Catheterized Urine Culture - Final No Growth (<1,000 CFU/ML) 07/12/15 Unknown Urine,Yoo Urine Culture - Final Pseudomonas Aeruginosa 06/14/15 14:55 Blood Gram Stain - Final 06/14/15 14:55 Blood Blood Culture - Final NO GROWTH AFTER 5 DAYS 06/14/15 15:20 Blood Gram Stain - Final 06/14/15 15:20 Blood Blood Culture - Final NO GROWTH AFTER 5 DAYS 06/14/15 Unknown Nose MRSA Culture (Admit) - Final MRSA NOT DETECTED 06/14/15 Unknown Urine,Yoo Urine Culture - Final No Growth (<1,000 CFU/ML) Most Recent Lab Values WBC 10.8 K/uL (4.8-10.8) 07/28/18 11:12 RBC 3.97 Mil/uL (4.40-5.90) L 07/28/18 11:12 Hgb 11.7 g/dL (12.0-18.0) L 07/28/18 11:12 Hct 35.2 % (35.0-51.0) 07/28/18 11:12 MCV 88.6 fL (80.0-94.0) 07/28/18 11:12 MCH 29.4 pg (27.0-31.0) 07/28/18 11:12 MCHC 33.2 g/dL (33.0-37.0) 07/28/18 11:12 RDW 15.4 % (11.5-14.5) H 07/28/18 11:12 Plt Count 257 K/uL (130-400) 07/28/18 11:12 MPV 9.1 fL (7.2-11.7) 07/28/18 11:12 Neut % (Auto) 65.8 % (50.0-75.0) 07/28/18 11:12 Lymph % (Auto) 22.9 % (20.0-40.0) 07/28/18 11:12 Fleming % (Auto) 7.0 % (0.0-10.0) 07/28/18 11:12 Eos % (Auto) 3.8 % (0.0-4.0) 07/28/18 11:12 Baso % (Auto) 0.5 % (0.0-2.0) 07/28/18 11:12 Neut # (Auto) 7.1 K/uL (1.8-7.0) H 07/28/18 11:12 Lymph # (Auto) 2.5 K/uL (1.0-4.3) 07/28/18 11:12 Fleming # (Auto) 0.8 K/uL (0.0-0.8) 07/28/18 11:12 Eos # (Auto) 0.4 K/uL (0.0-0.7) 07/28/18 11:12 Baso # (Auto) 0.0 K/uL (0.0-0.2) 07/28/18 11:12 Reactive Lymphs % 1 % (0-0) H 06/23/15 07:28 Neutrophils % (Manual) 86 % (50-75) H 07/21/17 07:36 Band Neutrophils % 1 % (0-2) 07/21/17 07:36 Lymphocytes % (Manual) 5 % (20-40) L 07/21/17 07:36 Monocytes % (Manual) 6 % (0-10) 07/21/17 07:36 Basophils % (Manual) 1 % (0-2) 12/26/15 08:10 Eosinophils % (Manual) 2 % (0-4) 07/21/17 07:36 Myelocytes % 1 % (0-0) H 04/20/17 07:11 Differential Comment 07/25/17 06:59 Toxic Granulation Present 07/21/17 07:36 Platelet Estimate Normal (NORMAL) 07/21/17 07:36 Plt Clumps, EDTA Present 04/13/17 06:54 Large Platelets Present 04/20/17 07:11 Giant Platelets Present 04/13/17 06:54 RBC Morphology Normal 12/24/15 07:18 Basophilic Stippling Slight 08/18/15 07:58 Target Cells Slight 09/14/15 07:59 Tear Drop Cells Slight 07/14/15 07:30 Ovalocytes Slight 08/23/15 13:43 Polychromasia Slight 04/20/17 07:11 Hypochromasia (manual) Slight 07/21/17 07:36 Lily Cells Slight 08/23/15 13:43 Poikilocytosis (manual Slight 07/21/17 07:36 Anisocytosis (manual) Slight 07/21/17 07:36 Schistocytes Slight 12/21/15 07:06 PT 10.6 SECONDS (9.7-12.2) 11/24/15 14:10 INR 1.0 11/24/15 14:10 APTT 25 SECONDS (21-34) 11/24/15 14:10 Plt Function Assay 76 K/uL 06/20/15 07:35 Puncture Site Rr 07/03/16 09:23 pCO2 39 mm/Hg (35-45) 07/03/16 09:23 pO2 88 mm/Hg (80-100) 07/03/16 09:23 HCO3 27.8 mmol/L (21-28) 07/03/16 09:23 ABG pH 7.46 (7.35-7.45) H 07/03/16 09:23 ABG Total CO2 28.9 mmol/L (22-28) H 07/03/16 09:23 ABG O2 Saturation 98.7 % (95-98) H 07/03/16 09:23 ABG Base Excess 3.7 mmol/L (-2.0-3.0) H 07/03/16 09:23 Yimi Test Pos 07/03/16 09:23 ABG Potassium 3.6 mmol/L (3.6-5.2) 07/03/16 09:23 ABG Lactate 2.2 mmol/L (0.7-2.1) H 07/03/16 09:23 VBG pH 7.35 (7.32-7.43) 07/03/16 03:23 VBG pCO2 44 mmHg (40-60) 07/03/16 03:23 VBG HCO3 22.8 mmol/L 07/03/16 03:23 VBG O2 Sat (Calc) 57.4 % (40-65) 07/03/16 03:23 VBG Base Excess -1.5 mmol/L (0.0-2.0) L 07/03/16 03:23 VBG Lactate 8.8 mmol/L (0.7-2.1) H* 07/03/16 03:23 A-a O2 Difference 77.0 mm/Hg 07/03/16 09:23 Respiratory Index 0.9 07/03/16 09:23 Sodium 140.0 mmol/l (132-148) 07/03/16 09:23 Glucose 143 mg/dl (75-110) H 07/03/16 09:23 Mechanical Rate 16.000 06/21/15 05:18 Spontaneous Rate 21.000 10/13/15 12:35 Liter Flow 5.0 07/02/16 22:28 Tidal Volume 365.000 10/13/15 12:35 Pressure Support 8.000 10/13/15 12:35 FiO2 30.0 % 07/03/16 09:23 CPAP 5.000 10/13/15 12:35 Crit Value Called To Dr eckert 07/03/16 03:23 Crit Value Called By Yadira kelly 07/03/16 03:23 Crit Value Read Back Y 07/03/16 03:23 Blood Gas Notified Time 332 07/03/16 03:23 Sodium 144 mmol/L (132-148) 07/27/18 11:17 Potassium 3.8 mmol/L (3.6-5.2) 07/27/18 11:17 Chloride 102 mmol/L (98-107) 07/27/18 11:17 Carbon Dioxide 32 mmol/L (22-30) H 07/27/18 11:17 Anion Gap 14 (10-20) 07/27/18 11:17 BUN 11 mg/dL (9-20) 07/27/18 11:17 Creatinine 0.6 mg/dL (0.8-1.5) L 07/27/18 11:17 Est GFR ( Amer) > 60 07/27/18 11:17 Est GFR (Non-Af Amer) > 60 07/27/18 11:17 POC Glucose (mg/dL) 122 mg/dL (65-110) H 08/04/18 20:47 Random Glucose 118 mg/dL (75-110) H 07/27/18 11:17 Hemoglobin A1c 5.8 % (4.2-6.5) 01/01/17 08:14 Lactic Acid 5.8 mmol/L (0.7-2.1) H* 06/14/15 06:25 Calcium 8.9 mg/dl (8.6-10.4) 07/27/18 11:17 Phosphorus 3.4 mg/dL (2.5-4.5) 07/26/18 08:16 Magnesium 2.1 mg/dL (1.6-2.3) 07/26/18 08:16 Ammonia < 9 umol/L (9-33) L 06/18/15 09:56 Total Bilirubin 0.8 mg/dL (0.2-1.3) 07/26/18 08:16 Total Creatine Kinase 3027 U/L (55-170) H 06/14/15 12:38 AST 29 U/L (17-59) 07/26/18 08:16 ALT 40 U/L (21-72) 07/26/18 08:16 CK-MB (Mass) 20.6 ng/mL (0.0-3.38) H 06/14/15 12:38 Alkaline Phosphatase 112 U/L (38-126) 07/26/18 08:16 Troponin I 10.7000 ng/mL (0.00-0.120) H* 06/14/15 06:25 Troponin I, Quant 9.8200 ng/mL (0.00-0.120) H* 06/14/15 12:38 NT-Pro-B Natriuret Pep 938 pg/mL (0-900) H 06/13/15 21:05 Prealbumin 23.3 mg/dL (17.6-36.0) 07/24/16 07:40 Triglycerides 69 mg/dL (0-149) 06/13/15 21:05 Total Protein 8.2 g/dL (6.3-8.3) 07/26/18 08:16 Albumin 3.8 g/dL (3.5-5.0) 07/26/18 08:16 Cholesterol 184 mg/dL (0-199) 06/13/15 21:05 Globulin 4.4 gm/dL (2.2-3.9) H 07/26/18 08:16 Albumin/Globulin Ratio 0.9 (1.0-2.1) L 07/26/18 08:16 LDL Cholesterol Direct 128 mg/dL (0-129) 06/13/15 21:05 HDL Cholesterol 36 mg/dL (30-70) 06/13/15 21:05 Prolactin 21.5 ng/mL (3.7-17.9) H 06/15/15 06:48 Arterial Blood Potassium 3.6 mmol/L (3.6-5.2) 07/03/16 09:23 Urine Color Yellow (YELLOW) 08/08/17 06:41 Urine Clarity Hazy (Clear) 08/08/17 06:41 Urine pH 8.0 (5.0-8.0) 08/08/17 06:41 Ur Specific [place] 1.011 (1.003-1.030) 08/08/17 06:41 Urine Protein Negative mg/dL (NEGATIVE) 08/08/17 06:41 Urine Glucose (UA) Normal mg/dL (Normal) 08/08/17 06:41 Urine Ketones Negative mg/dL (NEGATIVE) 08/08/17 06:41 Urine Blood Negative (NEGATIVE) 08/08/17 06:41 Urine Nitrate Negative (NEGATIVE) 08/08/17 06:41 Urine Bilirubin Negative (NEGATIVE) 08/08/17 06:41 Urine Urobilinogen Normal mg/dL (0.2-1.0) 08/08/17 06:41 Ur Leukocyte Esterase Neg Elida/uL (Negative) 08/08/17 06:41 Urine WBC (Auto) 3 /hpf (0-5) 08/08/17 06:41 Urine RBC (Auto) 6 /hpf (0-3) H 08/08/17 06:41 Ur Transition Epith Cell 1 /hpf (0-3) 07/12/15 20:10 Ur Squamous Epith Cells < 1 /hpf (0-5) 08/08/17 06:41 Calcium Oxalate Crystal Few /hpf (<OCC) H 11/16/15 07:43 Calcium Phos Quita (Auto) Rare /hpf (<OCC) 07/31/16 21:06 Triple Phos Crystals Occ /hpf (<OCC) H 03/17/17 23:39 Amorphous Sediment Rare /ul (<OCC) H 12/13/16 11:43 Urine Bacteria Occ (<OCC) H 05/28/17 19:27 Hyaline Casts 0-2 /lpf (0-2) 08/08/17 06:41 Urine Mucus Few (NONE) H 07/21/15 14:29 Urine Yeast (Budding) Few /hpf (NEGATIVE) H 11/16/15 07:43 Ur Random Creatinine 116.0 mg/dL 08/02/16 14:35 U Random Total Protein 13.0 mg/dL (0.0-12.0) H 08/02/16 14:35 Stool Leukocytes, Qual Negative (NEGATIVE) 04/26/17 15:30 Amikacin Trough 5.8 mg/L (4.0-8.0) 07/18/17 07:34 Gentamicin Trough 1.9 ug/mL (0.0-0.9) H 07/14/16 11:03 Vancomycin Trough < 5.0 ug/mL (5.0-10.0) L 06/18/15 14:10 Phenytoin 4.2 ug/mL (10-20) L 07/19/16 13:53 Free Phenytoin <0.5 mg/L (1.0-2.0) L 07/14/16 11:03 C. difficile Ag & Toxin Negative (NEGATIVE) 07/24/17 06:00 Hepatitis A IgM Ab Negative (NEGATIVE) 07/11/15 07:31 Hep Bs Antigen Negative (NEGATIVE) 07/11/15 07:31 Hep B Core IgM Ab Negative (NEGATIVE) 07/11/15 07:31 Hepatitis C Antibody Negative (NEGATIVE) 07/11/15 07:31 Blood Type O POSITIVE 11/24/15 14:10 Antibody Screen Negative 11/24/15 14:10 Attending/Attestation - Attestation I have personally seen and examined this patient.: Yes I have fully participated in the care of the patient.: Yes I have reviewed all pertinent clinical information, including history, physical exam and plan: Yes Notes (Text): 08/09/18 18:35 Medical attending: Patient left before I could come and see this morning. 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 He has been at [facility] for a very long time - perhaps 5 years however we cannot be sure since when he came the hospital was still using paper charts and I do not readily have these available. He has a PEG tube for which he has been having PEG feeds. His time here has been marked with episodes of UTIs that would need treatment as well as episodes of PEG tube that would require changes From what I understand there is a family member, his who use to come to hospital however I was informed that she some time ago. Amandeep Chavis
[2018-08-09] MEDS: levETIRAcetam 100 mg/ml (5ml) Oral Syringe PO SCH (09:27)
[~2018-08-09 10:19] MED LIST: Acetaminophen 650mg/20.3ml solution UD PEG STA; Acetaminophen 650mg/20.3ml solution UD PO STA; Acetylcysteine 20% Inhal Soln (4ml) INH ONE; Acetylcysteine 20% Inhal Soln (4ml) INH SCH; Acetylcysteine 20% Inhal Soln (4ml) ONE; Albuterol-Ipratrop 3 mg / 0.5 (3 ml) UD INH ONE; Albuterol-Ipratrop 3 mg / 0.5 (3 ml) UD INH PRN; Albuterol-Ipratrop 3 mg / 0.5 (3 ml) UD INH SCH; Albuterol-Ipratrop 3 mg / 0.5 (3 ml) UD INH STA; Amikacin Sulfate 900 MG in Sodium Chloride 0.9% 100 ML IVPB SCH; Amiodarone 900 MG in Dextrose 5% In Water 500 ML IV SCH; Azithromycin 500 MG in Sodium Chloride 0.9% 250 ML IVPB SCH; Bacitracin 500 Units/gm Oint Foilpak UD ONE; Bisacodyl 5mg EC Tab PO PRN; Ciprofloxacin 400mg/200ml D5W 200 ML IVPB SCH; Dextrose 5%/0.45% NS 1,000 ML IV SCH; Dextrose 5%/0.9% NS 1,000 ML IV ONE; DiphenhydrAMINE 50 mg/ml Inj IVP STA; Enoxaparin 40 mg Syringe SC ONE; Enoxaparin 40 mg Syringe SC SCH; Enoxaparin 60 mg Syringe SC SCH; Etomidate 20 mg/10ml Inj IV ONE; Fluconazole IV 100mg/50 ml NS 50 ML IVPB SCH; Fluconazole IV 200mg/100 ml NS 100 MG in Premixed IV 1 EA IVPB SCH; Fosphenytoin 1,000 MG in Sodium Chloride 0.9% 50 ML IV STA; Fosphenytoin 500 MG in Dextrose 5% In Water 50 ML IV STA; Furosemide 10 mg/mL LIQ (60mL) PEG ONE; GENTAMICIN IVPB SCH; HEPARIN IV ONE; Imipenem/Cilastatin 500 MG in Dextrose 5% In Water 100 ML IVPB SCH; Influenza Virus Vaccine (Afluria Inactive dont use ) IM ONE; Iodixanol 320 MG/ML 100 ML BOTTLE IV ONE; Iohexol 240 (50 ml) PO ONE; Iohexol 240 200 ML IJ ONE; Iohexol 300 100 ML IJ ONE; Iohexol 350mgl/ml 50 ML ONE; Lactated Ringer's 1,000 ML IV ONE; Lidocaine 1% w Epi 1:100,000 Inj ONE; MethylPREDNISolone 40 mg Vial IVP SCH; Midazolam 2 MG/2 ML VIAL ONE; NEOMYCIN IR ONE; NS IVPB SCH; Neostigmine Methylsulfate 3mg/3ml Syringe IV ONE; Nitroglycerin 50mg in D5W 250 ML IV ONE; Nystatin 100,000 Units/ml Oral Susp 5 ml UD PO SCH; POLYMYXIN B IR ONE; Pantoprazole 40 mg Susp UD PO SCH; Phenylephrine 10 mg/ml Inj IV ONE; Phenytoin 100 mg/2 ml Inj IVP SCH; Phenytoin 100 mg/4 ml Oral Susp UD PO SCH; Piperacill/Tazo 3.375gm in Dex 50 ML IVPB SCH; Pneumococcal 23-Valent Vaccine IM ONE; Potassium Chl 40 mEq in D5-1/2 1,000 ML IV SCH; Potassium Chloride 20 mEq 100 ML IVPB ONE; Potassium Chloride 20 mEq 100 ML IVPB STA; Potassium Chloride 20 mEq/15 ml LIQ UD PEG ONE; Potassium Chloride 20 mEq/15 ml LIQ UD PO ONE; Potassium Chloride 20 mEq/15 ml LIQ UD PO SCH; Potassium Phosphate 15 MMOLE in Dextrose 5% In Water 250 ML IVPB ONE; Propofol 10 mg/ml Inj (20 ML) ONE; Racepinephrine 2.25% Inhal Soln 0.5 ML UD INH STA; Rocuronium 10 mg/ml (5 ml) ONE; SODIUM CHLORIDE IR ONE; Simethicone 40 mg/0.6 ml Liquid (30 ml) ONE; Sodium Chloride 0.9% 1,000 ML IV ONE; Sodium Chloride 0.9% 1,000 ML IV SCH; Sulfamethoxazole/Trimethoprim 160 MG in Dextrose 5% In Water 250 ML IVPB SCH; [UNRECOGNIZED DRUG - OTHER] PEG SCH; [UNRECOGNIZED DRUG - OTHER] PO SCH; ceFAZolin 1 gm in NS 1 GM/100 ML BAG IVPB ONE; ceFAZolin 2 GM in Sodium Chloride 0.9% 100 ML IVPB ONE; levETIRAcetam 100 mg/ml (5ml) Oral Syringe PEG SCH; levETIRAcetam 500 MG in Sodium Chloride 0.9% 100 ML IVPB SCH
== END | DRG 877 ==
LOC: C.ER 06-13 20:51 → C.9I 06-13 21:05 → EDBD 06-13 21:05 → C.5T 06-21 14:24 → C.3T 02-12 17:02 → C.6T 07-03 04:00 → C.3T 07-06 17:40 → UNDODISIN 07-17 13:20 → C.3T 03-08 22:39
PROVIDERS: ADMIT Hospitalist; ATTEND Hospitalist
PROC: 0WQ0XZZ Repair Head, External Approach (ICD-10-PCS; 2015-06-13)
PROC: 5A1955Z Respiratory Ventilation, Greater than 96 Consecutive Hours (ICD-10-PCS; 2015-06-13)
PROC: 02713DZ Dilation of Coronary Artery, Two Arteries with Intraluminal Device, Percutaneous Approach (ICD-10-PCS; 2015-06-14)
PROC: 02C03ZZ Extirpation of Matter from Coronary Artery, One Artery, Percutaneous Approach (ICD-10-PCS; 2015-06-14)
PROC: 4A023N7 Measurement of Cardiac Sampling and Pressure, Left Heart, Percutaneous Approach (ICD-10-PCS; 2015-06-14)
PROC: B2151ZZ Fluoroscopy of Left Heart using Low Osmolar Contrast (ICD-10-PCS; 2015-06-14)
PROC: B2051ZZ Plain Radiography of Left Heart using Low Osmolar Contrast (ICD-10-PCS; 2015-06-14)
PROC: 0B113F4 Bypass Trachea to Cutaneous with Tracheostomy Device, Percutaneous Approach (ICD-10-PCS; 2015-06-20)
PROC: 0BJ08ZZ Inspection of Tracheobronchial Tree, Via Natural or Artificial Opening Endoscopic (ICD-10-PCS; 2015-06-20)
PROC: 0DH63UZ Insertion of Feeding Device into Stomach, Percutaneous Approach (ICD-10-PCS; principal; 2015-06-20 12:00)
PROC: 3E0G76Z Introduction of Nutritional Substance into Upper GI, Via Natural or Artificial Opening (ICD-10-PCS; 2015-06-20 12:00)
PROC: 0B21XFZ Change Tracheostomy Device in Trachea, External Approach (ICD-10-PCS; 2015-11-27)
PROC: 0B9B8ZX Drainage of Left Lower Lobe Bronchus, Via Natural or Artificial Opening Endoscopic, Diagnostic (ICD-10-PCS; 2015-11-27)
PROC: 0B968ZX Drainage of Right Lower Lobe Bronchus, Via Natural or Artificial Opening Endoscopic, Diagnostic (ICD-10-PCS; 2015-11-27)
PROC: 0D20XUZ Change Feeding Device in Upper Intestinal Tract, External Approach (ICD-10-PCS; 2018-01-07)
PROC: 0D20XUZ Change Feeding Device in Upper Intestinal Tract, External Approach (ICD-10-PCS; 2018-04-02)
DX: I21.09 ST elevation (STEMI) myocardial infarction involving other coronary artery of anterior wall (principal); L89.152 Pressure ulcer of sacral region, stage 2; I46.2 Cardiac arrest due to underlying cardiac condition; G93.1 Anoxic brain damage, not elsewhere classified; J96.00 Acute respiratory failure, unspecified whether with hypoxia or hypercapnia; I49.01 Ventricular fibrillation; N17.9 Acute kidney failure, unspecified; J18.0 Bronchopneumonia, unspecified organism; I49.5 Sick sinus syndrome; N39.0 Urinary tract infection, site not specified; E87.6 Hypokalemia; K94.23 Gastrostomy malfunction; B37.0 Candidal stomatitis; E46 Unspecified protein-calorie malnutrition; Z68.1 Body mass index [BMI] 19.9 or less, adult; G40.802 Other epilepsy, not intractable, without status epilepticus; R63.3 Feeding difficulties; I25.10 Atherosclerotic heart disease of native coronary artery without angina pectoris; S01.01XA Laceration without foreign body of scalp, initial encounter; W19.XXXA Unspecified fall, initial encounter; I25.82 Chronic total occlusion of coronary artery; M21.379 Foot drop, unspecified foot; G40.909 Epilepsy, unspecified, not intractable, without status epilepticus; R13.10 Dysphagia, unspecified; I62.9 Nontraumatic intracranial hemorrhage, unspecified
CPT/HCPCS: A4322; A4357; A9567; C1725; C1758; C1760; C1769; C1876; C1887; J2710; J3370; J7040